=== PATIENT | male | born 1960 | race Caucasian/White ===

== ENCOUNTER 2022-09-19 09:07 | Outpatient (OUT) | payer MEDICARE, OTHER, SELFPAY ==
[2022-09-19 10:00] LABS: Basophils Percent Auto 0.6 % (0.2-2.0); Eosinophils Absolute Auto 0.1 10^3/uL (0.0-0.7); Eosinophils Percent Auto 1.5 % (0.9-7.0); Hemoglobin 16.1 g/dL (14.0-18.0); Immature Granulocytes Abs Auto 0.03 10^3/uL (0.00-0.03); Immature Granulocytes Pct Auto 0.5 % (0.0-0.5); Lymphocytes Absolute Auto 0.9 10^3/uL (1.2-3.8); Lymphocytes Percent Auto 13.1 % (20.5-60.0); Mean Corpuscular HGB Conc 32.9 g/dL (29.9-35.2); Mean Corpuscular Hemoglobin 30.3 pg (25.9-34.0); Mean Corpuscular Volume 92.3 fL (80.0-94.0); Mean Platelet Volume 10.1 fL (9.5-13.5); Monocytes Absolute Auto 0.7 10^3/uL (0.3-0.8); Neutrophils Absolute Auto 4.8 10^3/uL (1.4-6.5); Neutrophils Percent Auto 74.3 % (43.0-75.0); Platelet Count 230 10^3/uL (150-450); Red Blood Count 5.31 10^6/uL (4.70-6.10); Red Cell Distribution Width 13.9 % (11.0-15.0); White Blood Count 6.5 10^3/uL (4.0-11.0)
[2022-09-19 11:03] LABS: Alanine Aminotransferase 37 U/L (16-63); Albumin Globulin Ratio 1.2; Alkaline Phosphatase 98 U/L (46-116); Anion Gap 12.7; Aspartate Amino Transferase 25 U/L (15-37); BUN Creatinine Ratio 16.2; Bilirubin Direct 0.2 mg/dL (0.0-0.2); Bilirubin Total 0.8 mg/dL (0.2-1.0); Calcium 9.5 mg/dL (8.5-10.1); Carbon Dioxide 28.7 mmol/L (21.0-32.0); Chloride 103 mmol/L (98-107); Chol HDL Ratio 3.3; Cholesterol 140 mg/dL (<=200); Estimated GFR (African America >60 (>=60); Estimated GFR (Non-African Ame 56 (>=60); Globulin 3.4 g/dL; Glucose 106 mg/dL (74-106); HDL Cholesterol 43 mg/dL (40-60); Magnesium 1.9 mg/dL (1.8-2.4); Phosphorus 3.6 mg/dL (2.6-4.7); Potassium 4.4 mmol/L (3.5-5.1); Sodium 140 mmol/L (136-145); Total Protein 7.4 g/dL (6.4-8.2); Triglycerides 164 mg/dL (<=150); Uric Acid 5.6 mg/dL (3.5-7.2); VLDL CHOLESTEROL 32.8 mg/dL
[2022-09-21 15:09] LABS: BKV DNA, Quant PCR, Plasma Negative (Negative)
[2022-09-21 16:09] LABS: Tacrolimus (FK506), Blood 6.3 ng/mL (2.0-20.0)
== END 2022-09-19 09:08 ==
PROVIDERS: PCP Family Medicine
DX: Z94.0 Kidney transplant status (principal)
CPT/HCPCS: 36415; 80053; 80061; 80076; 80197; 83735; 84100; 84550; 85025; 87799

== ENCOUNTER 2022-10-21 07:23 | Outpatient (OUT) | payer MEDICARE, OTHER, SELFPAY ==
[2022-10-21 08:46] LABS: Basophils Absolute Auto 0.1 10^3/uL (0.0-0.1); Basophils Percent Auto 0.9 % (0.2-2.0); Eosinophils Absolute Auto 0.1 10^3/uL (0.0-0.7); Eosinophils Percent Auto 1.9 % (0.9-7.0); Hematocrit 47.9 % (42.0-54.0); Hemoglobin 15.4 g/dL (14.0-18.0); Immature Granulocytes Abs Auto 0.03 10^3/uL (0.00-0.03); Immature Granulocytes Pct Auto 0.5 % (0.0-0.5); Lymphocytes Absolute Auto 0.8 10^3/uL (1.2-3.8); Lymphocytes Percent Auto 14.1 % (20.5-60.0); Mean Corpuscular HGB Conc 32.2 g/dL (29.9-35.2); Mean Corpuscular Hemoglobin 29.7 pg (25.9-34.0); Mean Corpuscular Volume 92.5 fL (80.0-94.0); Mean Platelet Volume 10.6 fL (9.5-13.5); Monocytes Absolute Auto 0.6 10^3/uL (0.3-0.8); Monocytes Percent Auto 9.6 % (1.7-12.0); Neutrophils Absolute Auto 4.3 10^3/uL (1.4-6.5); Platelet Count 224 10^3/uL (150-450); Red Blood Count 5.18 10^6/uL (4.70-6.10); Red Cell Distribution Width 13.8 % (11.0-15.0); White Blood Count 5.8 10^3/uL (4.0-11.0)
[2022-10-21 09:37] LABS: Alanine Aminotransferase 40 U/L (16-63); Albumin Globulin Ratio 1.3; Albumin Level 3.8 g/dL (3.4-5.0); Alkaline Phosphatase 92 U/L (46-116); Aspartate Amino Transferase 16 U/L (15-37); BUN Creatinine Ratio 13.7; Bilirubin Direct 0.1 mg/dL (0.0-0.2); Bilirubin Total 0.4 mg/dL (0.2-1.0); Carbon Dioxide 26.9 mmol/L (21.0-32.0); Chloride 106 mmol/L (98-107); Chol HDL Ratio 2.6; Cholesterol 127 mg/dL (<=200); Estimated GFR (African America >60 (>=60); Estimated GFR (Non-African Ame 59 (>=60); Glucose 118 mg/dL (74-106); HDL Cholesterol 49 mg/dL (40-60); Magnesium 1.6 mg/dL (1.8-2.4); Phosphorus 3.8 mg/dL (2.6-4.7); Potassium 3.9 mmol/L (3.5-5.1); Sodium 141 mmol/L (136-145); Total Protein 6.8 g/dL (6.4-8.2); Triglycerides 120 mg/dL (<=150); Uric Acid 5.7 mg/dL (3.5-7.2)
[2022-10-24 18:07] LABS: BKV DNA, Quant PCR, Plasma Negative (Negative)
[2022-10-26 02:07] LABS: Tacrolimus (FK506), Blood 6.8 ng/mL (2.0-20.0)
== END 2022-10-21 07:24 | disposition home or self-care (01) ==
LOC: LAB 07:25
PROVIDERS: PCP Family Medicine
DX: Z94.0 Kidney transplant status (principal)
CPT/HCPCS: 36415; 80053; 80061; 80076; 80197; 83735; 84100; 84550; 85025; 87799

== ENCOUNTER 2022-11-21 08:46 | Outpatient (OUT) | payer MEDICARE, OTHER, SELFPAY ==
[2022-11-21 09:18] LABS: Basophils Absolute Auto 0.1 10^3/uL (0.0-0.1); Eosinophils Absolute Auto 0.1 10^3/uL (0.0-0.7); Eosinophils Percent Auto 1.6 % (0.9-7.0); Hematocrit 48.3 % (42.0-54.0); Hemoglobin 15.8 g/dL (14.0-18.0); Immature Granulocytes Abs Auto 0.03 10^3/uL (0.00-0.03); Immature Granulocytes Pct Auto 0.5 % (0.0-0.5); Lymphocytes Absolute Auto 0.9 10^3/uL (1.2-3.8); Lymphocytes Percent Auto 14.6 % (20.5-60.0); Mean Corpuscular HGB Conc 32.7 g/dL (29.9-35.2); Mean Corpuscular Hemoglobin 29.7 pg (25.9-34.0); Mean Corpuscular Volume 90.8 fL (80.0-94.0); Mean Platelet Volume 10.5 fL (9.5-13.5); Monocytes Absolute Auto 0.7 10^3/uL (0.3-0.8); Monocytes Percent Auto 11.1 % (1.7-12.0); Neutrophils Absolute Auto 4.5 10^3/uL (1.4-6.5); Neutrophils Percent Auto 71.2 % (43.0-75.0); Platelet Count 216 10^3/uL (150-450); Red Blood Count 5.32 10^6/uL (4.70-6.10); White Blood Count 6.3 10^3/uL (4.0-11.0)
[2022-11-21 11:14] LABS: Alanine Aminotransferase 34 U/L (16-63); Albumin Globulin Ratio 1.2; Albumin Level 3.9 g/dL (3.4-5.0); Alkaline Phosphatase 88 U/L (46-116); Anion Gap 14.6; Aspartate Amino Transferase 20 U/L (15-37); Bilirubin Direct 0.2 mg/dL (0.0-0.2); Bilirubin Total 0.5 mg/dL (0.2-1.0); Carbon Dioxide 26.6 mmol/L (21.0-32.0); Chloride 105 mmol/L (98-107); Chol HDL Ratio 2.7; Cholesterol 123 mg/dL (<=200); Estimated GFR (African America >60 (>=60); Estimated GFR (Non-African Ame 59 (>=60); Globulin 3.2 g/dL; Glucose 120 mg/dL (74-106); HDL Cholesterol 46 mg/dL (40-60); Potassium 4.2 mmol/L (3.5-5.1); Sodium 142 mmol/L (136-145); Total Protein 7.1 g/dL (6.4-8.2); Triglycerides 125 mg/dL (<=150); Uric Acid 5.4 mg/dL (3.5-7.2)
[2022-11-24 00:09] LABS: Tacrolimus (FK506), Blood 6.6 ng/mL (2.0-20.0)
== END 2022-11-21 08:47 | disposition home or self-care (01) ==
LOC: LAB 08:51
PROVIDERS: PCP Family Medicine
DX: Z94.0 Kidney transplant status (principal)
CPT/HCPCS: 36415; 80053; 80061; 80197; 82248; 84550; 85025

== ENCOUNTER 2023-02-23 08:30 | Outpatient (OUT) | payer MEDICARE, OTHER, SELFPAY ==
[2023-02-23 08:58] LABS: Basophils Absolute Auto 0.1 10^3/uL (0.0-0.1); Basophils Percent Auto 0.8 % (0.2-2.0); Eosinophils Absolute Auto 0.2 10^3/uL (0.0-0.7); Eosinophils Percent Auto 1.9 % (0.9-7.0); Hematocrit 46.6 % (42.0-54.0); Hemoglobin 14.9 g/dL (14.0-18.0); Immature Granulocytes Abs Auto 0.04 10^3/uL (0.00-0.03); Immature Granulocytes Pct Auto 0.5 % (0.0-0.5); Lymphocytes Absolute Auto 1.2 10^3/uL (1.2-3.8); Lymphocytes Percent Auto 14.9 % (20.5-60.0); Mean Corpuscular Hemoglobin 29.7 pg (25.9-34.0); Mean Corpuscular Volume 92.8 fL (80.0-94.0); Mean Platelet Volume 9.9 fL (9.5-13.5); Monocytes Absolute Auto 0.7 10^3/uL (0.3-0.8); Monocytes Percent Auto 8.8 % (1.7-12.0); Neutrophils Absolute Auto 5.8 10^3/uL (1.4-6.5); Neutrophils Percent Auto 73.1 % (43.0-75.0); Platelet Count 263 10^3/uL (150-450); Red Blood Count 5.02 10^6/uL (4.70-6.10); Red Cell Distribution Width 13.9 % (11.0-15.0); White Blood Count 7.9 10^3/uL (4.0-11.0)
[2023-02-23 10:15] LABS: Alanine Aminotransferase 36 U/L (16-63); Albumin Globulin Ratio 1.1; Albumin Level 3.6 g/dL (3.4-5.0); Alkaline Phosphatase 106 U/L (46-116); Anion Gap 8.2; Aspartate Amino Transferase 19 U/L (15-37); BUN Creatinine Ratio 14.6; Bilirubin Direct 0.1 mg/dL (0.0-0.2); Bilirubin Total 0.5 mg/dL (0.2-1.0); Calcium 9.1 mg/dL (8.5-10.1); Carbon Dioxide 30.1 mmol/L (21.0-32.0); Chloride 102 mmol/L (98-107); Chol HDL Ratio 2.7; Cholesterol 120 mg/dL (<=200); Estimated GFR (African America >60 (>=60); Estimated GFR (Non-African Ame 56 (>=60); Globulin 3.3 g/dL; Glucose 115 mg/dL (74-106); HDL Cholesterol 44 mg/dL (40-60); LDL Cholesterol Calculated 52.6 mg/dL; Magnesium 1.9 mg/dL (1.8-2.4); Phosphorus 3.7 mg/dL (2.6-4.7); Potassium 4.3 mmol/L (3.5-5.1); Sodium 136 mmol/L (136-145); Total Protein 6.9 g/dL (6.4-8.2); Triglycerides 117 mg/dL (<=150); VLDL CHOLESTEROL 23.4 mg/dL
[2023-02-25 16:08] LABS: BKV DNA, Quant PCR, Plasma Negative (Negative)
[2023-02-26 15:07] LABS: Tacrolimus (FK506), Blood 3.6 ng/mL (2.0-20.0)
== END 2023-02-23 08:31 | disposition home or self-care (01) ==
LOC: LAB 08:32
PROVIDERS: PCP Family Medicine
DX: Z94.0 Kidney transplant status (principal)
CPT/HCPCS: 36415; 80053; 80061; 80076; 80197; 83735; 84100; 84550; 85025; 87799

== ENCOUNTER 2023-03-08 09:09 | Outpatient (OUT) | payer MEDICARE, OTHER, SELFPAY ==
[2023-03-11 21:06] LABS: Tacrolimus (FK506), Blood 6.7 ng/mL (2.0-20.0)
== END 2023-03-08 09:10 | disposition home or self-care (01) ==
LOC: LAB 09:11
PROVIDERS: PCP Family Medicine
DX: R73.01 Impaired fasting glucose (principal); Z94.0 Kidney transplant status
CPT/HCPCS: 36415; 80197

== ENCOUNTER 2023-04-26 09:29 | Outpatient (OUT) | payer MEDICARE, SELFPAY ==
--- OUTSIDE RECORDS SUMMARY | 2023-04-26 09:39 | XMS_ITS | CCD ---
Author Name Unknown Address [address] [place] [address] Organization [facility] Care Team Providers Care Capacity Planning Engineer Name Role Phone Rosa M Gonzales Unavailable Unavailable Unavailable YONAS HERRERA Surgeon Unavailable SC Procedure Practitioner Unavailab YONAS Hsieh Attending Unavailable ROSA M GONZALES Primary Care Unavailable ROSA M GONZALES Referring Unavailable EKINES RAFAEL Admitting Unavailable ROSA M GONZALES Primary Care Unavailable ROSA M GONZALES Referring Unavailable FEDERICO CHESTER Attending Unavailable FEDERICO CHESTER Admitting Unavailable ROSA M GONZALES Primary Care Unavailable ROSA M GONZALES Referring Unavailable Daniel Jansen Attending Unavailable Daniel Jansen Admitting Unavailable JUAN FERREIRA Attending Unavailable XOCHILT CABRERA Admitting Unavailable JULIET GOLDBERG Referring Unavailable ROSA M GONZALES Primary Care Unavailable YOJANA MCDANIELS Surgeon Unavailable SC Procedure Practitioner Unavailab prabhakar MACDONALD, REFERRED Referring Unavailable ROSA M GONZALES Primary Care Unavailable DEIRCK VIDAL Attending Unavailable DERICK VIDAL Admitting Unavailable ROSA M GONZALES Primary Care Physician [phone] STEPHANIE, DR LAYTON Consulting Unavailable ELTAHAWY, DR LAYTON Admitting Unavailable ELTAHAWY, DR LAYTON Attending Unavailable JANET, DR DUVAL Primary Care Unavailable MISC, DR PEDERSEN Admitting Unavailable MISC, DR PEDERSEN Attending Unavailable JANET, DR DUVAL Primary Care Unavailable MISC, DR PEDERSEN Consulting Unavailable MISC, DR PEDERSEN Admitting Unavailable MISC, DR PDEERSEN Attending Unavailable JANET, DR DUVAL Primary Care Unavailable MISC, DR PEDERSEN Consulting Unavailable MISC, DR PEDERSEN Admitting Unavailable MISC, DR DOCTOR Consulting Unavailable MISC, DR DOCTOR Attending Unavailable JANET, DR DUVAL Primary Care Unavailable WALDO, DR AIME Arnold Consulting Unavailable ELTAHAWY, DR LAYTON Admitting Unavailable ELTAHAWY, DR LAYTON Attending Unavailable JANET, DR DUVAL Primary Care Unavailable ELTAHAWY, DR LAYTON Consulting Unavailable MISC, DOCTOR Admitting Unavailable MISC, DOCTOR Attending Unavailable MISC, DR PEDERSEN Consulting Unavailable JANET, DR DUVAL Primary Care Unavailable MISC, DOCTOR Admitting Unavailable MISC, DOCTOR Attending Unavailable MISC, DR PEDERSEN Consulting Unavailable JANET, DR DUVAL Primary Care Unavailable JANET, DR DUVAL Primary Care Unavailable MISC, DOCTOR Attending Unavailable MISC, DR PEDERSEN Consulting Unavailable MISC, DOCTOR Admitting Unavailable MISC, DOCTOR Attending Unavailable MISC, DR PEDERSEN Consulting Unavailable JANET, DR DUVAL Primary Care Unavailable MISC, DOCTOR Admitting Unavailable Sarmini, Xochilt Talal Attending Unavaila ble AL-TKRIT, KELVIN Attending Unavailable EKWENNA, OBI Admitting Unavailable EKWENNA, OBI Attending Unavailable ELTAHAWY, EHAB Attending Unavailable EKWENNA, OBI Referring Unavailable SAFI, SHARLA Referring Unavailable CRISENBERY, PETEY Attending Unavailable EKWENNA, OBI Attending Unavailable ELTAHAWY, EHAB Attending Unavailable KAY, TEAGAN Referring Unavailable KAY, TEAGAN Referring Unavailable HENRY, SHAUN Referring Unavailable EKWENNA, OBI Attending Unavailable EKWENNA, OBI Attending Unavailable EKWENNA, OBI Attending Unavailable SAFI, SHARLA Referring Unavailable AHMAD, RAMI Attending Unavailable CRISENBERY, PETEY Attending Unavailable Allergies Allergy Classification Reported Allergen(s) Allergy Type Date of Onset Reaction(s) Facility (1 source) 11040,00; Translations: [96016,00] Propensity to adverse reactions (disorder) 9 [facility] Repository (1 source) Cephalexin; Translations: [Keflex] Drug Allergy [facility] Repository (1 source) ALLERGIES NOT ON FILE; Translations: [ALLERGIES NOT ON FILE] Propensity to adverse reactions (disorder) [facility] Repository Medications Current Medications Medication Drug Class(es) Dates Sig (Normalized) Sig (Original) atorvastatin 80 mg oral tablet (2 sources) HMG-CoA Reductase Inhibitor Start: 01-17-2022 take 1 tablet by mouth once daily atorvastatin 80 mg Tab 80 mg = 1 tab(s), Oral, Daily Start Date: 01/17/22 Status: Ordered Start: 01-04-2021 take 1 tablet by jacob th once daily Atorvastatin Calcium 80 MG Oral Tablet TAKE 1 TABLET BY MOUTH EVERY DAY Quantity: 30 Refills: 0 Ordered: 04-Apr-2021 DO Start : 04-Jan-2021 Active clopidogrel 75 mg oral tablet (2 sources) P2Y12 Platelet Inhibitor Start: 01-17-2022 take 1 tablet by mouth once daily clopidogrel 75 mg Tab 75 mg = 1 tab(s), Oral, Daily Start Date: 01/17/22 Status: Ordered Start: 01-04-2021 take 1 tablet by jacob th once daily Clopidogrel Bisulfate 75 MG Oral Tablet TAKE 1 TABLET DAILY. Quantity: 7 Refills: 0 Ordered: 04-Apr-2021 DO Start : 04-Jan-2021 Active clotrimazole 10 mg oral lozenge (1 source) Azole Antifungal Start: 01-01-2020 take 1 mg by mouth once daily clotrimazole 10 mg Jennifer mg lozenge(s), Oral, 5x/Day, Refills(s) 0 Start Date: 01/01/20 Status: Ordered dapagliflozin 10 mg oral tablet (2 sources) Sodium-Glucose Cotransporter 2 Inhibitor Start: 01-17-2022 take 1 tablet by mouth once daily Farxiga 10 mg oral tablet 10 mg = 1 tab(s), Oral, Daily Start Date: 01/17/22 Status: Ordered take 1 tablet by jacob th once daily in the morning Farxiga 10 MG Oral Tablet TAKE 1 TABLET BY MOUTH EVERY MORNING Quantity: 0 Refills: 0 Ordered: 23-Apr-2021 DO Active magnesium amino acid chelate (1 source) Start: 01-01-2020 magnesium butcher o acids chelate Oral, Refills(s) 0 Start Date: 01/01/20 Status: Ordered magnesium oxide 400 mg oral tablet (2 sources) Start: 01-17-2022 take 1 tablet by mouth three times daily magnesium oxide 400 mg Tab 400 mg = 1 tab(s), Oral, TID Start Date: 01/17/22 Status: Ordered Start: 07-01-2020 take 1 tablet by jacob th three times daily Magnesium Oxide 400 (241.3 Mg) MG Oral Tablet TAKE 1 TABLET BY MOUTH THREE TIMES DAILY Quantity: 90 Refills: 0 Ordered: 03-Mar-2021 DO Start : 01-Jul-2020 Active prasugrel 10 mg oral tablet (1 source) P2Y12 Platelet Inhibitor Start: 01-01-2020 take 1 tablet by mouth once daily Effient 10 mg Tab 10 mg = 1 tab(s), Oral, Daily, # 30 tab(s), Refills(s) 0 Start Date: 01/01/20 Status: Ordered pravastatin sodium 40 mg oral tablet (1 source) HMG-CoA Reductase Inhibitor Start: 01-03-2020 take 1 mg by mouth once daily Pravachol 40 mg Tab mg tab(s), Oral, Daily, Refills(s) 0 Start Date: 01/03/20 Status: Ordered predniSONE 5 mg oral tablet (2 sources) Start: 01-17-2022 take 1 tablet by mouth once daily predniSONE 5 mg Tab 5 mg = 1 tab(s), Oral, Daily Start Date: 01/17/22 Status: Ordered Start: 11-06-2020 take 1 tablet by jacob th once daily predniSONE 5 MG Oral Tablet TAKE 1 TABLET DAILY. Quantity: 0 Refills: 0 Ordered: 04-Apr-2021 DO Start : 06-Nov-2020 Active 12 hr ranolazine 500 mg extended release oral tablet (1 source) Anti-anginal Start: 01-17-2022 take 1 tablet by mouth twice daily ranolazine 500 mg oral ER Tab 500 mg = 1 tab(s), Oral, BID Start Date: 01/17/22 Status: Ordered sodium bicarbonate 325 mg oral tablet (1 source) Start: 01-01-2020 take 1 tablet by mouth four times daily as needed sodium bicarbonate 325 mg Tab = 1 tab(s), Oral, QID, PRN for indigestion, # 30 tab(s), Refills(s) 0 Start Date: 01/01/20 Status: Ordered sucralfate 1000 mg oral tablet (1 source) Aluminum Complex Start: 01-17-2022 take 1 tablet by mouth three times daily sucralfate 1 g Tab 1 gm = 1 tab(s), Oral, TID Start Date: 01/17/22 Status: Ordered Bactrim (1 source) Dihydrofolate Reductase Inhibitor Antibacterial, Sulfonamide Antimicrobial Start: 01-01-2020 Bactrim Oral, q12hr, Refill(s) 0 Start Date: 01/01/20 Status: Ordered valGANciclovir 450 mg oral tablet (1 source) Start: 01-01-2020 take 1 mg by mouth once daily valganciclovir 450 mg oral tablet mg tab(s), Oral, Daily, Refills(s) 0 Start Date: 01/01/20 Status: Ordered Completed/Discontinued Medications Medication Drug Class(es) Dates Sig (Normalized) Sig (Original) aspirin 81 mg chewable tablet (2 sources) Platelet Aggregation Inhibitor, Nonsteroidal Anti-inflammatory Drug Start: 08-19-2020 take 1 tablet by mouth once daily Aspirin Low Dose 81 MG Oral Tablet Chewable CHEW ONE TABLET BY MOUTH EVERY DAY Quantity: 30 Refills: 0 Ordered: 19-Aug-2020 DO Start : 19-Aug-2020 Active Start: 01-01-2020 take 1 mg by mouth once daily aspirin 81 mg oral tablet mg tab(s), Oral, Daily, Refills(s) 0 Start Date: 01/01/20 Status: Ordered lisinopril 5 mg oral tablet (2 sources) Angiotensin Converting Enzyme Inhibitor Start: 01-03-2020 take 1 tablet by mouth once daily Lisinopril 5 MG Oral Tablet TAKE 1 TABLET DAILY. Quantity: 90 Refills: 3 Ordered: 04-Apr-2021 DO Start : 03-Sep-2020 Active 24 hr metoprolol succinate 200 mg extended release oral tablet (2 sources) beta-Adrenergic Temo Start: 01-04-2021 take 1 tablet by mouth every twenty-four hours Metoprolol Succinate ER 200 MG Oral Tablet Extended Release 24 Hour Quantity: 30 Refills: 0 Ordered: 04-Apr-2021 DO Start : 04-Jan-2021 Active Start: 01-01-2020 take 1 mg by mouth twice daily Metoprolol tartrate 50 mg Tab mg tab(s), Oral, BID, Refills(s) 0 Start Date: 01/01/20 Status: Ordered mycophenolic acid 180 mg delayed release oral tablet (2 sources) Antimetabolite Immunosuppressant Start: 02-03-2021 take 3 tablets by mouth twice daily Mycophenolate Sodium 180 MG Oral Tablet Delayed Release TAKE 3 TABLET Twice daily Quantity: 0 Refills: 0 Ordered: 04-Apr-2021 DO Start : 03-Feb-2021 Active Start: 01-01-2020 take 1 mg by mouth twice daily mycophenolic acid 180 mg oral enteric coated tablet mg tab(s), Oral, BID, Refills(s) 0 Start Date: 01/01/20 Status: Ordered nitroglycerin 0.4 mg sublingual tablet (1 source) Nitrate Vasodilator Start: 10-26-2020 Nitroglyce rin 0.4 MG Sublingual Tablet Sublingual PLACE 1 TABLET UNDER THE TONGUE EVERY 5 MINUTES UP TO 3 DOSES NEEDED FOR CHEST PAIN. Quantity: 25 Refills: 6 Ordered: 07-Dec-2020 DO Start : 26-Oct-2020 Active tacrolimus 1 mg oral capsule (2 sources) Calcineurin Inhibitor Immunosuppressant Start: 07-01-2020 Tacrolimus 1 MG Oral Capsule TAKE DIRECTED. Quantity: 0 Refills: 0 Ordered: 04-Apr-2021 DO Start : 01-Jul-2020 Active Start: 01-01-2020 tacrolimus 1 m g, Refills(s) 0 Start Date: 01/01/20 Status: Ordered Problems Active Problems Problem Classification Problem Date Documented Date Episodic/Chronic Acute and unspecified renal failure (1 source) Renal failure syndrome 01-01-2020 Chronic Acute myocardial infarction (1 source) Myocardial infarction 01-17-2022 Chronic Cardiac arrest and ventricular fibrillation (1 source) Ventricular fibrillation; Translations: [Cardiac arrest] Chronic Chronic kidney disease (6 sources) Kidney transplant status; Translations: [KIDNEY TRANSPLANT STATUS] Onset: 3 Chronic Conduction disorders (3 sources) Automatic implantable cardiac defibrillator in situ; Translations: [Automatic implantable cardiac defibrillator in situ] Onset: 3 Chronic Congestive heart failure; nonhypertensive (4 sources) Heart failure, unspecified; Translations: [Chronic systolic (congestive) heart failure] Onset: 3 Chronic Coronary atherosclerosis and other heart disease (10 sources) Coronary atherosclerosis; Translations: [Coronary atherosclerosis of [place] coronary artery] Onset: 2 Chronic Deficiency and other anemia (2 sources) Other hemoglobinopathies; Translations: [Other hemoglobinopathies] Onset: 3 Chronic Diabetes mellitus without complication (2 sources) Impaired fasting glucose; Translations: [Impaired fasting glucose] Onset: 3 Episodic Disorders of lipid metabolism (2 sources) Hyperlipidemia; Translations: [Other and unspecified hyperlipidemia] 01-01-2020 Chronic Esophageal disorders (2 sources) Gastro-esophageal reflux disease without esophagitis; Translations: [Gastro-esophageal reflux disease without esophagitis] Onset: 3 Chronic Essential hypertension (3 sources) Hypertensive disorder; Translations: [Essential (primary) hypertension] Onset: 3 01-01-2020 Chronic Fluid and electrolyte disorders (2 sources) Other disorders of electrolyte and fluid balance, not elsewhere classified; Translations: [Other disorders of electrolyte and fluid balance, not elsewhere classified] Onset: 3 Episodic Genitourinary congenital anomalies (4 sources) Polycystic kidney, unspecified; Translations: [Polycystic kidney, adult type] Onset: 3 Chronic Genitourinary congenital anomalies (1 source) H/O: congenital anomaly; Translations: [Personal history of other specified (corrected) congenital malformations of genitourinary system] Onset: 2 Episodic Genitourinary symptoms and ill-defined conditions (4 sources) Nocturia; Translations: [Nocturia] Onset: 2 Episodic Hyperplasia of prostate (2 sources) Benign prostatic hypertrophy with outflow obstruction; Translations: [Benign prostatic hyperplasia with lower urinary tract symptoms] Onset: 2 Chronic Immunity disorders (2 sources) Immunodeficiency, unspecified; Translations: [Immunodeficiency, unspecified] Onset: 3 Chronic Other aftercare (2 sources) Encounter for aftercare following other organ transplant; Translations: [Encounter for aftercare following other organ transplant] Onset: 3 Chronic Other diseases of kidney and ureters (2 sources) Other specified disorders of kidney and ureter; Translations: [Other specified disorders of kidney and ureter] Onset: 3 Chronic Other screening for suspected conditions (not mental disorders or infectious disease) (4 sources) Abnormal electrocardiogram [ECG] [EKG]; Translations: [ABNORMAL ELECTROCARDIOGRAM] Onset: 3 Episodic Respiratory failure; insufficiency; arrest (adult) (2 sources) Chronic respiratory failure with hypoxia; Translations: [Chronic respiratory failure with hypoxia] Onset: 3 Chronic Unclassified (1 source) Personal history of COVID-19; Translations: [Personal history of COVID-19] Onset: 3 Unclassified (1 source) Post covid-19 condition, unspecified; Translations: [Post covid-19 condition, unspecified] Onset: 3 Unclassified (2 sources) Kidney Follow-up; Translations: [Kidney Follow-up] Onset: 3 Past or Other Problems Problem Classification Problem Date Documented Da te Episodic/Chronic Other hematologic conditions (2 sources) Other abnormality of red blood cells; Translations: [Other abnormality of red blood cells] Onset: 08-19-2022 Episodic Other lower respiratory disease (2 sources) Other forms of dyspnea; Translations: [Other forms of dyspnea] Onset: 10-24-2022 Episodic Other lower respiratory disease (2 sources) Shortness of breath; Translations: [Shortness of breath] Onset: 07-29-2022 Episodic Screening and history of mental health and substance abuse codes (3 sources) Ex-smoker; Translations: [Personal history of tobacco use] Onset: 07-29-2022 Episodic Comment on above: Quit in 2008; Unclassified (1 source) Personal history of COVID-19; Translations: [Personal history of COVID-19] Onset: 07-29-2022 Unclassified (1 source) Post covid-19 condition, unspecified; Translations: [Post covid-19 condition, unspecified] Onset: 07-29-2022 Results Test Name Value Interpretation Reference Range Facility BILIRUBIN, DIRECTon 03-28-20 23 Magnesium [Mass/Vol] 0.1 mg/dL Normal 0-0.2 [facility] Comment on above: Performed By: #### L [id number] #### [facility] (AKER) [address] [place] [address] CBC WITH AUTO DIFFERENTIALon 03-28-2023 Basophils (Bld) [#/Vol] 0.08 10*3/uL Normal 0.00-0.20 [facility] Comment on above: Performed By: #### L [id number] #### [facility] (AKER) [address] [place] [address] Basophils/100 WBC (Bld) 0.8 % Normal 0.0-1.0 [facility] Comment on above: Performed By: #### L [id number] #### [facility] (BEAKER) [address] [place] [address] Eosinophils (Bld) [#/Vol] 0.17 10*3/uL Normal 0.00-0.50 [facility] Comment on above: Performed By: #### L [id number] #### [facility] [address] [place] [address] Eosinophils/100 WBC (Bld) 1.7 % Normal 0.0-6.0 [facility] Comment on above: Performed By: #### L [id number] #### [facility] ([facility]) [address] [place] [address] Erythrocyte distribution width (RBC) [Ratio] 14.8 % Normal 11.5-15.0 [facility] Comment on above: Performed By: #### L [id number] #### [facility] ([facility]) [address] [place] [address] ERYTHROCYTE MEAN CORPUSCULAR HEMOGLOBIN CONCENTRATION (G/DL) BY AUTOMATED 32.9 g/dL Normal 32.0-35.0 [facility] Comment on above: Performed By: #### L [id number] #### [facility] ([facility]) [address] [place] [address] Hematocrit (Bld) [Volume fraction] 49.3 % Normal 39.0-55.0 [facility] Comment on above: Performed By: #### L [id number] #### [facility] [address] [place] [address] Hemoglobin (Bld) [Mass/Vol] 16.2 g/dL Normal 13.0-17.0 [facility] Comment on above: Performed By: #### L [id number] #### [facility] [address] [place] [address] Immature granulocytes (Bld) [#/Vol] 0.07 10*3/uL Normal 0.00-0.20 [facility] Comment on above: Performed By: #### L [id number] #### [facility] [address] [place] [address] Immature granulocytes/100 WBC (Bld) 0.7 % Normal 0.0-1.0 [facility] Comment on above: Performed By: #### L [id number] #### [facility] ([facility]) [address] [place] [address] Lymphocytes (Bld) [#/Vol] 1.26 10*3/uL Normal 1.20-4.00 [facility] Comment on above: Performed By: #### L [id number] #### [facility] ([facility]) [address] [facility] [place] [address] Lymphocytes/100 WBC (Bld) 12.4 % Low 20.0-45.0 [facility] Comment on above: Performed By: #### L [id number] #### [facility] ([facility]) [address] [facility] [address] MCH (RBC) [Entitic mass] 29.8 pg Normal 27.0-33.0 [facility] Comment on above: Performed By: #### L [id number] #### [facility] ([facility]) [address] [place] [address] MCV (RBC) [Entitic vol] 90.8 fL Normal 82.0-98.0 [facility] Comment on above: Performed By: #### L [id number] #### [facility] ([facility]) [address] [place] [address] Monocytes (Bld) [#/Vol] 0.94 10*3/uL Normal 0.10-1.00 [facility] Comment on above: Performed By: #### L [id number] #### [facility] ([facility]) [address] [place] [address] Monocytes/100 WBC (Bld) 9.2 % Normal 5.0-12.0 [facility] Comment on above: Performed By: #### L [id number] #### [facility] ([facility]) [address] [place] [address] Neutrophils (Bld) [#/Vol] 7.66 10*3/uL High 1.60-7.60 [facility] Comment on above: Performed By: #### L [id number] #### [facility] ([facility]) [address] [place] [address] Neutrophils/100 WBC (Bld) 75.2 % High 40.0-72.0 [facility] Comment on above: Performed By: #### L [id number] #### [facility] ([facility]) [address] [place] [place] [address] NRBC (PER 100 WBCS) BY AUTOMATED COUNT 0.0 % Normal 0 [facility] Comment on above: Performed By: #### L [id number] #### [facility] ([facility]) [address] [place] [address] PLATELETS (10*3/UL) IN BLOOD AUTOMATED COUNT 276 10*3/uL Normal 150-400 [facility] Comment on above: Performed By: #### L [id number] #### [facility] ([facility]) [address] [place] [address] RBC (Bld) [#/Vol] 5.43 10*6/uL Normal 4.20-5.70 [facility] Comment on above: Performed By: #### L [id number] #### [facility] ([facility]) [address] [place] [address] WBC (Bld) [#/Vol] 10.18 10*3/uL Normal 4.00-10.60 [facility] Comment on above: Performed By: #### L [id number] #### [facility] ([facility]) [address] [place] [address] COMPREHENSIVE METABOLIC PANE Nitin 03-28-2023 Albumin [Mass/Vol] 4.7 g/dL Normal 3.5-5.7 [facility] Comment on above: Performed By: #### L [id number] ####[facility] ([facility] [place] [address] ALP [Catalytic activity/Vol] 92 U/L Normal 34-104 [facility] Comment on above: Performed By: #### L [id number] ####[facility] (BEAKER)[address] [place] [address] ALT [Catalytic activity/Vol] 19 U/L Normal 7-52 [facility] Comment on above: Performed By: #### L [id number] ####[facility] (BEAKER)[address] [place] [address] Anion gap [Moles/Vol] 11 mmol/L Normal 7-20 [facility] Comment on above: Performed By: #### L [id number] ####[facility] (BEAKER)[address] [place] [address] AST [Catalytic activity/Vol] 17 U/L Normal 13-39 [facility] Comment on above: Performed By: #### L [id number] ####[facility] (BEAKER)[address] [place] [address] Bilirubin [Mass/Vol] 0.6 mg/dL Normal 0.3-1.0 [facility] Comment on above: Performed By: #### L [id number] ####[facility] (BEAKER)[address] [place] [address] Calcium [Mass/Vol] 9.9 mg/dL Normal 8.6-10.3 [facility] Comment on above: Performed By: #### L [id number] ####[facility] (BEAKER)[address] [place] [address] Chloride [Moles/Vol] 105 mmol/L Normal 98-107 [facility] Comment on above: Performed By: #### L [id number] ####[facility] (BEAKER)[address] [place] [address] CO2 [Moles/Vol] 27 mmol/L Normal 21-31 [facility] Comment on above: Performed By: #### L [id number] ####[facility] (BEAKER)[address] [place] [address] Creatinine [Mass/Vol] 1.21 mg/dL Normal 0.70-1.30 [facility] Comment on above: Performed By: #### L [id number] ####[facility] ([facility])[address] [place] [address] GLOMERULAR FILTRATION RATE ML/MIN/1.73 SQ M.PREDICTED 67.7 mL/min/1.73m*2 Normal >60.0 [facility] Comment on above: Result Comment: [facility]???s estimated glomerular filtration rate (eGFR) will no longer include consideration of race in its calculation. The National Kid[employer] Foundation???s eGFR Task Force developed new recommendations for the estimation of the glomerular filtration rate in the [place] They recommend immediate implementation of the new equation refit without the race variable in all laboratories because the calculation does not include race. In addition to not including race in the calculation and reporting, it included diversity in its development, and has acceptable performance characteristics and potential consequences that do not disproportionately affect any one group of individuals. Performed By: #### L [id number] ####[facility] ([facility])[address] [place] [address] Glucose [Mass/Vol] 136 mg/dL High 70-100 [facility] Comment on above: Performed By: #### L [id number] ####[facility] ([facility])[address] [place] [address] Potassium [Moles/Vol] 4.8 mmol/L Normal 3.5-5.1 [facility] Comment on above: Performed By: #### L [id number] ####[facility] ([facility])[address] [place] [address] Protein [Mass/Vol] 6.9 g/dL Normal 6.0-8.3 [facility] Comment on above: Performed By: #### L [id number] ####[facility] ([facility])[address] [place] [address] Sodium [Moles/Vol] 138 mmol/L Normal 136-145 [facility] Comment on above: Performed By: #### L [id number] ####[facility] ([facility])[address] [place] [address] Urea nitrogen [Mass/Vol] 20 mg/dL Normal 7-25 [facility] Comment on above: Performed By: #### L [id number] ####[facility] ([facility])[address] [place] [address] UREA NITROGEN/CREATININE (MASS RATIO) IN SER/PLAS 16.5 Normal [facility] Comment on above: Performed By: #### L [id number] ####[facility] ([facility])[address] [place] [address] Follow-Upon 03-28-2023 Follow-Up [id number] Vishal Duke 1960 M Date Provider Department Center 03/28/2023 [id number] ZHANG None Family History Problem Relation Age of Onset Alzheimer's disease Mother Coronary artery disease Father Family Status - Relation Status Age at Mother Father Level of Service:92387 SC OFFICE/OUTPATIENT ESTABLISHED MOD MDM 30-39 MIN Reason for Visit and Comments: Kidney Follow-up [[id number]] - Patient have no concerns Normal [facility] LIPID PANELon 03-28-2023 CHOL/HDL 2.8 mg/dL Normal [facility] Comment on above: Performed By: #### L [id number] #### [facility] ([facility]) [address] [place] [address] Cholesterol [Mass/Vol] 125 mg/dL Normal 120-200 [facility] Comment on above: Performed By: #### L [id number] #### [facility] ([facility]) [address] [place] [address] Magnesium [Mass/Vol] 157 mg/dL High 40-149 [facility] Comment on above: Result Comment: TRIG LYCERIDE REFERENCE RANGE: 20 YEARS AND OLDER CARDIOVASCULAR RISK LESS THAN 150 mg/dL LOW RISK 150 TO 199 mg/dL BORDERLINE RISK 200 mg/dL AND GREATER HIGH RISK Performed By: #### L [id number] #### [facility] ([facility]) [address] [place] [address] Magnesium [Mass/Vol] 49 mg/dL Normal 0-160 [facility] Comment on above: Performed By: #### L [id number] #### [facility] [address] [place] [address] Magnesium [Mass/Vol] 45 mg/dL Normal 23-92 [facility] Comment on above: Performed By: #### L [id number] #### [facility] ([facility]) [address] [place] [address] NON HDL CHOL. (LDL+VLDL) 80 Normal [facility] Comment on above: Performed By: #### L [id number] #### [facility] ([facility]) [address] [place] [address] TOTAL VLDL-C 31 mg/dL Normal 0-40 [facility] Comment on above: Performed By: #### L [id number] #### [facility] ([facility]) [address] [place] [address] Labon 03-28-2023 Lab [id number] Vishal Duke 1960 M Date Provider Department [place] 03/28/2023 [id number] DRAW STATION KXT Draw [facility] Family History Problem Relation Age of Onset Alzheimer's disease Mother Coronary artery disease Father Family Status - Relation Status Age at Mother Father Normal [facility] MAGNESIUMon 03-28-2023 Magnesium [Mass/Vol] 1.5 mg/dL Low 1.9-2.7 [facility] Comment on above: Performed By: #### L [id number] ####[facility] ([facility])[address] [place] [address] PHOSPHORUSon 03-28-2023 Magnesium [Mass/Vol] 3.6 mg/dL Normal 2.5-5.0 [facility] Comment on above: Performed By: #### L [id number] #### [facility] ([facility]) [address] [place] [address] TACROLIMUS LEVELon Tacrolimus (Bld) [Mass/Vol] 9.6 ng/mL Normal 5.0-20.0 [facility] Comment on above: Result Comment: The [employer] Tacrolimus assay is a delayed one-step immunoassay for the quantitative determination of tacrolimus in human whole blood using the chemiluminescent microparticle immunoassay (CMIA) technology with flexible assay protocols, referred to as Chemiflex. Performed By: #### L [id number] #### [facility] ([facility]) [address] [place] [address] URIC ACIDon 03-28-2023 Magnesium [Mass/Vol] 5.2 mg/dL Normal 4.4-7.6 [facility] Comment on above: Performed By: #### L [id number] #### [facility] ([facility]) [address] [place] [address] Orders Onlyon 03-08-2023 Orders Only [id number] Vishal Duke 1960 M Date Provider Department Center 03/08/2023 1971-FARRUKH BLANCAS TXP None Family History Problem Relation Age of Onset Alzheimer's disease Mother Coronary artery disease Father Family Status - Relation Status Age at Mother Father Normal [facility] BILIRUBIN, DIRECTon 02-10-20 Magnesium [Mass/Vol] 0.1 mg/dL Normal 0-0.2 [facility] Comment on above: Performed By: #### L [id number] #### [facility] ([facility]) [address] [place] [address] CBC WITH AUTO DIFFERENTIALon 02-09-2023 Basophils (Bld) [#/Vol] 0.10 10*3/uL Normal 0.00-0.20 [facility] Comment on above: Performed By: #### L [id number] ####[facility] ([facility])[address] [place] [address] Basophils/100 WBC (Bld) 1.0 % Normal 0.0-1.0 [facility] Comment on above: Performed By: #### L [id number] ####[facility] ([facility])[address] [place] [address] Eosinophils (Bld) [#/Vol] 0.10 10*3/uL Normal 0.00-0.50 [facility] Comment on above: Performed By: #### L [id number] ####[facility] ([facility])[address] [place] [address] Eosinophils/100 WBC (Bld) 1.0 % Normal 0.0-6.0 [facility] Comment on above: Performed By: #### L [id number] ####[facility] ([facility])[address] [place] [address] Erythrocyte distribution width (RBC) [Ratio] 14.0 % Normal 11.5-15.0 [facility] Comment on above: Performed By: #### L [id number] ####[facility] ([facility] [place] [address] ERYTHROCYTE MEAN CORPUSCULAR HEMOGLOBIN CONCENTRATION (G/DL) BY AUTOMATED 32.3 g/dL Normal 32.0-35.0 [facility] Comment on above: Performed By: #### L [id number] ####[facility] ([facility] [place] [address] Hematocrit (Bld) [Volume fraction] 46.4 % Normal 39.0-55.0 [facility] Comment on above: Performed By: #### L [id number] ####[facility] ([facility] [place] [address] Hemoglobin (Bld) [Mass/Vol] 15.0 g/dL Normal 13.0-17.0 [facility] Comment on above: Performed By: #### L [id number] ####[facility] ([facility])[address] [place] [address] Immature granulocytes (Bld) [#/Vol] 0.09 10*3/uL Normal 0.00-0.20 [facility] Comment on above: Performed By: #### L [id number] ####[facility] ([facility])[address] [place] [address] Immature granulocytes/100 WBC (Bld) 0.9 % Normal 0.0-1.0 [facility] Comment on above: Performed By: #### L [id number] ####[facility] ([facility])[address] [place] [address] Lymphocytes (Bld) [#/Vol] 0.92 10*3/uL Low 1.20-4.00 [facility] Comment on above: Performed By: #### L [id number] ####[facility] ([facility])[address] [place] [address] Lymphocytes/100 WBC (Bld) 9.2 % Low 20.0-45.0 [facility] Comment on above: Performed By: #### L [id number] ####[facility] ([facility])[address] [place] [address] MCH (RBC) [Entitic mass] 29.5 pg Normal 27.0-33.0 [facility] Comment on above: Performed By: #### L [id number] ####[facility] ([facility])[address] [place], [place] [address] MCV (RBC) [Entitic vol] 91.3 fL Normal 82.0-98.0 [facility] Comment on above: Performed By: #### L [id number] ####[facility] ([facility])[address] [place], [place] [address] Monocytes (Bld) [#/Vol] 0.75 10*3/uL Normal 0.10-1.00 [facility] Comment on above: Performed By: #### L [id number] ####[facility] ([facility])[address] [place] [address] Monocytes/100 WBC (Bld) 7.5 % Normal 5.0-12.0 [facility] Comment on above: Performed By: #### L [id number] ####[facility] ([facility])[address] [place] [address] Neutrophils (Bld) [#/Vol] 8.09 10*3/uL High 1.60-7.60 [facility] Comment on above: Performed By: #### L [id number] ####[facility] ([facility])[address] [place] [address] Neutrophils/100 WBC (Bld) 80.4 % High 40.0-72.0 [facility] Comment on above: Performed By: #### L [id number] ####[facility] ([facility])[address] [place] [address] NRBC (PER 100 WBCS) BY AUTOMATED COUNT 0.0 % Normal 0 [facility] Comment on above: Performed By: #### L [id number] ####[facility] ([facility])[address] [place] [address] PLATELETS (10*3/UL) IN BLOOD AUTOMATED COUNT 567 10*3/uL High 150-400 [facility] Comment on above: Performed By: #### L [id number] ####[facility] ([facility])[address] [place] [address] RBC (Bld) [#/Vol] 5.08 10*6/uL Normal 4.20-5.70 [facility] Comment on above: Performed By: #### L [id number] ####[facility] ([facility])[address] [place] [address] WBC (Bld) [#/Vol] 10.05 10*3/uL Normal 4.00-10.60 [facility] Comment on above: Performed By: #### L [id number] ####[facility] ([facility])[address] [place] [address] COMPREHENSIVE METABOLIC PANE Nitin 02-09-2023 Albumin [Mass/Vol] 4.5 g/dL Normal 3.5-5.7 [facility] Comment on above: Performed By: #### L [id number] #### [facility] ([facility] [address] [place] [address] ALP [Catalytic activity/Vol] 132 U/L High 34-104 [facility] Comment on above: Performed By: #### L [id number] #### [facility] ([facility] [address] [place] [address] ALT [Catalytic activity/Vol] 47 U/L Normal 7-52 [facility] Comment on above: Performed By: #### L [id number] #### [facility] ([facility]) [address] [place] [address] Anion gap [Moles/Vol] 13 mmol/L Normal 7-20 [facility] Comment on above: Performed By: #### L [id number] #### [facility] ([facility]) [address] [place] [address] AST [Catalytic activity/Vol] 27 U/L Normal 13-39 [facility] Comment on above: Performed By: #### L [id number] #### [facility] ([facility]) [address] [place] [address] Bilirubin [Mass/Vol] 0.6 mg/dL Normal 0.3-1.0 [facility] Comment on above: Performed By: #### L [id number] #### [facility] ([facility] [address] [place] [address] Calcium [Mass/Vol] 9.7 mg/dL Normal 8.6-10.3 [facility] Comment on above: Performed By: #### L [id number] #### [facility] ([facility]) [address] [place] [address] Chloride [Moles/Vol] 102 mmol/L Normal 98-107 [facility] Comment on above: Performed By: #### L [id number] #### [facility] ([facility]) [address] [place] [address] CO2 [Moles/Vol] 27 mmol/L Normal 21-31 [facility] Comment on above: Performed By: #### L [id number] #### [facility] ([facility]) [address] [place] [address] Creatinine [Mass/Vol] 1.17 mg/dL Normal 0.70-1.30 [facility] Comment on above: Performed By: #### L [id number] #### [facility] ([facility]) [address] [place] [address] GLOMERULAR FILTRATION RATE ML/MIN/1.73 SQ M.PREDICTED 70.5 mL/min/1.73m*2 Normal >60.0 [facility] Comment on above: Result Comment: The [facility]???s estimated glomerular filtration rate (eGFR) will no longer include consideration of race in its calculation. The National Kidney Foundation???s eGFR Task Force developed new recommendations for the estimation of the glomerular filtration rate in the [place] They recommend immediate implementation of the new equation refit without the race variable in all laboratories because the calculation does not include race. In addition to not including race in the calculation and reporting, it included diversity in its development, and has acceptable performance characteristics and potential consequences that do not disproportionately affect any one group of individuals. Performed By: #### L [id number] #### [facility] ([facility]) [address] [place] [address] Glucose [Mass/Vol] 111 mg/dL High 70-100 [facility] Comment on above: Performed By: #### L [id number] #### [facility] ([facility]) [address] [place] [address] Potassium [Moles/Vol] 4.6 mmol/L Normal 3.5-5.1 [facility] Comment on above: Performed By: #### L [id number] #### [facility] ([facility]) [address] [place] [address] Protein [Mass/Vol] 7.2 g/dL Normal 6.0-8.3 [facility] Comment on above: Performed By: #### L [id number] #### [facility] ([facility]) [address] [place] [address] Sodium [Moles/Vol] 137 mmol/L Normal 136-145 [facility] Comment on above: Performed By: #### L [id number] #### [facility] ([facility]) [address] [place] [address] Urea nitrogen [Mass/Vol] 19 mg/dL Normal 7-25 [facility] Comment on above: Performed By: #### L [id number] #### [facility] ([facility]) [address] [place] [address] UREA NITROGEN/CREATININE (MASS RATIO) IN SER/PLAS 16.2 Normal [facility] Comment on above: Performed By: #### L [id number] #### [facility] ([facility]) [address] [place] [address] Follow-Upon 02-09-2023 Follow-Up [id number] Vishal Duke 1960 M Date Provider Department Center 02/09/2023 [id number], OBI TXP None Family History Problem Relation Age of Onset Alzheimer's disease Mother Coronary artery disease Father Family Status - Relation Status Age at Mother Father Level of Service:[id number] SC OFFICE/OUTPATIENT ESTABLISHED LOW MDM 20-29 MIN Reason for Visit and Comments: Kidney Follow-up [[id number]] - No major concerns today Normal [facility] HEMOGLOBIN A1Con 02-09-2023 Glucose [Mass/Vol] 134 mg/dL Normal [facility] Comment on above: Performed By: #### L [id number] #### [facility] ([facility]) [address] [place] [address] HbA1c (Bld) [Mass fraction] 6.3 % High 4.0-6.0 [facility] Comment on above: Performed By: #### L [id number] #### [facility] ([facility]) [address] [place] [address] LIPID PANELon 02-09-2023 CHOL/HDL 3.6 mg/dL Normal [facility] Comment on above: Performed By: #### L [id number] ####[facility] ([facility] [place] [address] Cholesterol [Mass/Vol] 126 mg/dL Normal 120-200 [facility] Comment on above: Performed By: #### L [id number] ####[facility] ([facility])[address] [place] [address] Magnesium [Mass/Vol] 214 mg/dL High 40-149 [facility] Comment on above: Result Comment: TRIG LYCERIDE REFERENCE RANGE: 20 YEARS AND OLDER CARDIOVASCULAR RISK LESS THAN 150 mg/dL LOW RISK 150 TO 199 mg/dL BORDERLINE RISK 200 mg/dL AND GREATER HIGH RISK Performed By: #### L [id number] ####[facility] ([facility])[address] [place] [address] Magnesium [Mass/Vol] 48 mg/dL Normal 0-160 [facility] Comment on above: Performed By: #### L [id number] ####[facility] ([facility])[address] [place] [address] Magnesium [Mass/Vol] 35 mg/dL Normal 23-92 [facility] Comment on above: Performed By: #### L [id number] ####[facility] ([facility])[address] [place] [address] NON HDL CHOL. (LDL+VLDL) 91 Normal [facility] Comment on above: Performed By: #### L [id number] ####[facility] ([facility])[address] [place] [address] TOTAL VLDL-C 43 mg/dL High 0-40 [facility] Comment on above: Performed By: #### L [id number] ####[facility] ([facility])[address] [place] [address] Labon 02-09-2023 Lab [id number] Vishal Duke 1960 M Date Provider Department [place] 02/09/2023 [id number] DRAW STATION KXT Draw [facility] Family History Problem Relation Age of Onset Alzheimer's disease Mother Coronary artery disease Father Family Status - Relation Status Age at Mother Father Normal [facility] MAGNESIUMon 02-09-2023 Magnesium [Mass/Vol] 1.7 mg/dL Low 1.9-2.7 [facility] Comment on above: Performed By: #### L [id number] #### [facility] ([facility]) [address] [place] [address] PHOSPHORUSon 02-09-2023 Magnesium [Mass/Vol] 3.7 mg/dL Normal 2.5-5.0 [facility] Comment on above: Performed By: #### L [id number] #### [facility] ([facility]) [address] [place] [address] TACROLIMUS LEVELon Tacrolimus (Bld) [Mass/Vol] 3.3 ng/mL Low 5.0-20.0 [facility] Comment on above: Result Comment: The [employer] Tacrolimus assay is a delayed one-step immunoassay for the quantitative determination of tacrolimus in human whole blood using the chemiluminescent microparticle immunoassay (CMIA) technology with flexible assay protocols, referred to as Chemiflex. Performed By: #### L [id number] #### [facility] ([facility]) [address] [place] [address] TESTOSTERONE, FREE AND TOTAL , AND SHBGon 02-09-2023 SEX HORMONE BINDING GLOBULIN (NMOL/L) IN SER/PLAS 17 nmol/L Normal 11-80 [facility] Comment on above: Performed By: #### L [id number] #### [facility] ([facility]) [address] [place] [address] TESTOSTERONE (NG/DL) IN SER/PLAS 495 ng/dL Normal 220-1000 [facility] Comment on above: Performed By: #### L [id number] #### [facility] ([facility]) [address] [place] [address] TESTOSTERONE FREE (NG/ML) IN SER/PLAS 142.2 pg/mL Normal 47-244 [facility] Comment on above: Result Comment: The concentration of free testosterone is derived from a mathematical expression based on the constant for the binding of testosterone to albumin and/or sex hormone binding globulin. Test Performed by [facility] [address] [place] [id number] - Released 02/09/2023 20:38 Performed By: #### L [id number] #### [facility] ([facility]) [address] [place] [address] URIC ACIDon 02-09-2023 Magnesium [Mass/Vol] 5.1 mg/dL Normal 4.4-7.6 [facility] Comment on above: Performed By: #### L [id number] #### [facility] ([facility]) [address] [place] [address] Reminderson 02-03-2023 Reminders - From: Tamara White MA To: Tamara White MA; Sent: 02/02/2023 10:39:43 EDT Show up: 02/02/2023 10:40:00 EDT Subject: colon recall Reminder Message [address] Cerrato 02/01/13 first recall letter sent [facility] Patient Letter FTon 2022 Patient Letter [facility] (Inserted Image. Lacy ble to display) February 02, 2023 VISHAL DUKE [address] [place] [address] : 1960 Dear Vishal, This is a reminder that you are due for an appointment with [facility]. Please contact our office at [phone] to schedule your 10 year colon recall Thank you, [facility] 30on 01-25-2023 30 Problem: Neurosensor y - Adult Goal: Achieves stable or improved neurological status Outcome: Progressing Goal: Absence of seizures Outcome: Progressing Goal: Remains free of injury related to seizures activity Outcome: Progressing Goal: Achieves maximal functionality and self care Outcome: Progressing Problem: Respiratory - Adult Goal: Achieves optimal ventilation and oxygenation Outcome: Progressing Problem: Cardiovascular - Adult Goal: Maintains optimal cardiac output and hemodynamic stability Outcome: Progressing Goal: Absence of cardiac dysrhythmias or at baseline Outcome: Progressing Problem: Skin/Tissue Integrity - Adult Goal: Skin integrity remains intact Outcome: Progressing Goal: Incisions, wounds, or drain sites healing without S/S of infection Outcome: Progressing Goal: Oral mucous membranes remain intact Outcome: Progressing Problem: Gastrointestinal - Adult Goal: Minimal or absence of nausea and vomiting Outcome: Progressing Goal: Maintains or returns to baseline bowel function Outcome: Progressing Goal: Maintains adequate nutritional intake Outcome: Progressing Goal: Establish and maintain optimal ostomy function Outcome: Progressing Problem: Musculoskeletal - Adult Goal: Return mobility to safest level of function Outcome: Progressing Goal: Maintain proper alignment of affected body part Outcome: Progressing Goal: Return ADL status to a safe level of function Outcome: Progressing Problem: Infection - Adult Goal: Absence of infection at discharge Outcome: Progressing Goal: Absence of infection during hospitalization Outcome: Progressing Goal: Absence of fever/infection during anticipated neutropenic period Outcome: Progressing Problem: Genitourinary - Adult Goal: Absence of urinary retention Outcome: Progressing Goal: Urinary catheter remains patent Outcome: Progressing Problem: Genitourinary - Adult Goal: Absence of urinary retention Outcome: Progressing Goal: Urinary catheter remains patent Outcome: Progressing Problem: Infection - Adult Goal: Absence of infection at discharge Outcome: Progressing Goal: Absence of infection during hospitalization Outcome: Progressing Goal: Absence of fever/infection during anticipated neutropenic period Outcome: Progressing Problem: Genitourinary - Adult Goal: Absence of urinary retention Outcome: Progressing Goal: Urinary catheter remains patent Outcome: Progressing The patient is Moderately Stable - Low risk of patient condition declining or worsening Normal [facility] 30 Daily Case Managemen t Update Multidisciplinary rounds have been completed. Barriers to Discharge: s/p bilateral Nephrectomy. POD #1 From home. Hx of Kidney Transplant - 08/15/2017 Diet: Dietary Orders (From admission, onward) Start Ordered 01/25/23 1200 Full Liquid Diet Diet effective now Question: Room Service? Answer: No 01/25/23 0806 01/25/23 0324 Clear Liquid Diet Diet effective now Question: Room Service? Answer: No 01/25/23 0323 Physician Expected Discharge Date: 01/26/2023 Discharge Delays: PT Six Click Score: OT Six Click Score: PT Recommendations: OT Recommendations: New Consults: Normal [facility] BASIC METABOLIC PANELon 10- Anion gap [Moles/Vol] 10 mmol/L Normal 7-20 [facility] Comment on above: Performed By: #### L [id number] #### [facility] ([facility]) [address] [place] [address] Calcium [Mass/Vol] 6.6 mg/dL Low 8.6-10.3 [facility] Comment on above: Performed By: #### L [id number] #### [facility] ([facility]) [address] [place] [address] Chloride [Moles/Vol] 116 mmol/L High 98-107 [facility] Comment on above: Performed By: #### L [id number] #### [facility] ([facility]) [address] [place] [address] CO2 [Moles/Vol] 20 mmol/L Low 21-31 [facility] Comment on above: Performed By: #### L [id number] #### [facility] [address] [place] [address] Creatinine [Mass/Vol] 0.92 mg/dL Normal 0.70-1.30 [facility] Comment on above: Performed By: #### L [id number] #### [facility] ([facility]) [address] [place] [address] GLOMERULAR FILTRATION RATE ML/MIN/1.73 SQ M.PREDICTED 94.1 mL/min/1.73m*2 Normal >60.0 [facility] Comment on above: Result Comment: The [facility]???s estimated glomerular filtration rate (eGFR) will no longer include consideration of race in its calculation. The National Kidney Foundation???s eGFR Task Force developed new recommendations for the estimation of the glomerular filtration rate in the [place] They recommend immediate implementation of the new equation refit without the race variable in all laboratories because the calculation does not include race. In addition to not including race in the calculation and reporting, it included diversity in its development, and has acceptable performance characteristics and potential consequences that do not disproportionately affect any one group of individuals. Performed By: #### L [id number] #### [facility] [facility] ([facility]) [address] [place] [address] Glucose [Mass/Vol] 113 mg/dL High 70-100 [facility] Comment on above: Performed By: #### L [id number] #### [facility] [address] [place] [address] Potassium [Moles/Vol] 3.3 mmol/L Low 3.5-5.1 [facility] Comment on above: Performed By: #### L [id number] #### [facility] [address] [place] [address] Sodium [Moles/Vol] 143 mmol/L Normal 136-145 [facility] Comment on above: Performed By: #### L [id number] #### [facility] ([facility]) [address] [place] [address] Urea nitrogen [Mass/Vol] 17 mg/dL Normal 7-25 [facility] Comment on above: Performed By: #### L [id number] #### [facility] [address] [place] [address] UREA NITROGEN/CREATININE (MASS RATIO) IN SER/PLAS 18.5 Normal [facility] Comment on above: Performed By: #### L [id number] #### [facility] ([facility] [address] [place] [address] CBCon 01-25-2023 Erythrocyte distribution width (RBC) [Ratio] 14.8 % Normal 11.5-15.0 [facility] Comment on above: Performed By: #### L [id number] ####[facility] ([facility])[address] [place] [address] ERYTHROCYTE MEAN CORPUSCULAR HEMOGLOBIN CONCENTRATION (G/DL) BY AUTOMATED 32.2 g/dL Normal 32.0-35.0 [facility] Comment on above: Performed By: #### L [id number] ####[facility] ([facility])[address] [place] [address] Hematocrit (Bld) [Volume fraction] 42.5 % Normal 39.0-55.0 [facility] Comment on above: Performed By: #### L [id number] ####[facility] ([facility] [place] [address] Hemoglobin (Bld) [Mass/Vol] 13.7 g/dL Normal 13.0-17.0 [facility] Comment on above: Performed By: #### L [id number] ####[facility] ([facility] [place] [address] MCH (RBC) [Entitic mass] 29.7 pg Normal 27.0-33.0 [facility] Comment on above: Performed By: #### L [id number] ####[facility] ([facility] [place] [address] MCV (RBC) [Entitic vol] 92.2 fL Normal 82.0-98.0 [facility] Comment on above: Performed By: #### L [id number] ####[facility] ([facility])[address] [place] [address] PLATELETS (10*3/UL) IN BLOOD AUTOMATED COUNT 232 10*3/uL Normal 150-400 [facility] Comment on above: Performed By: #### L [id number] ####[facility] ([facility])[address] [place] [address] RBC (Bld) [#/Vol] 4.61 10*6/uL Normal 4.20-5.70 [facility] Comment on above: Performed By: #### L [id number] ####[facility] ([facility])[address] [place] [address] WBC (Bld) [#/Vol] 8.82 10*3/uL Normal 4.00-10.60 [facility] Comment on above: Performed By: #### L [id number] ####[facility] ([facility])[address] [place] [address] DSon 01-25-2023 DS Admission Admitted 01/24/2023 for PKD (polycystic kidney disease) Discharge Diagnosis PKD (polycystic kidney disease) Discharge Disposition Home or Self Care Discharge Medications Your medication list START taking these medications Instructions Last Dose Given Next Dose Due docusate sodium 100 mg capsule Commonly known as: Colace Take 1 capsule (100 mg) by mouth in the morning and at bedtime for 10 days. methocarbamol 500 mg tablet Commonly known as: Robaxin Take 1 tablet (500 mg) by mouth if needed in the morning, at noon, and at bedtime for muscle spasms for up to 5 days. oxyCODONE 5 mg immediate release tablet Commonly known as: Roxicodone Take 1 tablet (5 mg) by mouth every 6 (six) hours if needed (moderate pain (4-7)) for up to 5 days. polyethylene glycol 17 gram packet Commonly known as: Glycolax Start taking on: January 26, 2023 Take 17 g by mouth in the morning for 10 days. Do not start before January 26, 2023. CONTINUE taking these medications Instructions Last Dose Given Next Dose Due albuterol 90 mcg/actuation inhaler Commonly known as: ProAir HFA Inhale 2 puffs every 4 (four) hours if needed for wheezing or shortness of breath. aspirin 81 mg EC tablet atorvastatin 80 mg tablet Commonly known as: Lipitor Take 1 tablet (80 mg) by mouth at bedtime. clopidogrel 75 mg tablet Commonly known as: Plavix Take 1 tablet (75 mg) by mouth in the morning. empagliflozin 10 mg Commonly known as: Jardiance Take 1 tablet (10 mg) by mouth once daily as directed. esomeprazole [address] capsule Commonly known as: NexIUM Take 1 capsule (40 mg) by mouth before breakfast. Do not open capsule. famotidine 20 mg tablet Commonly known as: Pepcid isosorbide mononitrate ER 60 mg 24 hr tablet Commonly known as: Imdur Take 1 tablet (60 mg) by mouth in the morning. Do not crush or chew. lisinopril 5 mg tablet Take 1 tablet (5 mg) by mouth in the morning. magnesium oxide 400 mg tablet Commonly known as: Mag-Ox metoprolol succinate XL 200 mg 24 hr tablet Commonly known as: Toprol-XL Take 1 tablet (200 mg) by mouth once daily as directed. Do not crush or chew. mycophenolate 180 mg EC tablet Commonly known as: Myfortic Take 3 tablets (540 mg) by mouth in the morning and at bedtime. nitroglycerin 0.4 mg SL tablet Commonly known as: Nitrostat predniSONE 5 mg tablet Commonly known as: Deltasone ranolazine 500 mg 12 hr tablet Commonly known as: Ranexa Take 1 tablet (500 mg) by mouth in the morning and at bedtime. Do not crush, chew, or split. tacrolimus 0.5 mg capsule Commonly known as: Prograf tacrolimus 0.5 mg capsule, immediate-release TAKE 1 CAPSULE BY MOUTH TWICE DAILY Where to Get Your Medications These medications were sent to [facility] - [place], [place] - [address], [facility] [address] docusate sodium 100 mg capsule methocarbamol 500 mg tablet oxyCODONE 5 mg immediate release tablet polyethylene glycol 17 gram packet Activity For 4-6 weeks Normal activity as tolerated Showering instructions: Do not soak surgical incisions with water. Diet Continue on the same type of diet and foods as you were eating before your admission. Drink plenty of water. Allergies Patient has no known allergies. Hospital Course 62-year-old male status post bilateral robotic nephrectomy. By postoperative day 1 patient tolerating clear liquid diet was advanced to full liquid diet which he also tolerated. Patient was able to ambulate and was with minimal pain. Labs are all within normal limits. Patient was afebrile hemodynamically stable. Deng catheter is removed and patient passed void trial with low postvoid residuals. Patient is currently saturating off-and-on requiring nasal cannula oxygen. However patient since COVID has had off-and-on oxygen requirements and is at baseline currently with this. He is continuing to use his incentive spirometer. Patient is now stable and ready for discharge with outpatient follow-up. Pertinent Physical Exam At Time of Discharge Physical Exam Cardiovascular: Rate and Rhythm: Normal rate and regular rhythm. Pulmonary: Effort: Pulmonary effort is normal. Breath sounds: Normal breath sounds. Abdominal: General: Abdomen is flat. Palpations: Abdomen is soft. Skin: General: Skin is warm. Neurological: General: No focal deficit present. Mental Status: He is alert. Lab Results Labs Reviewed ARTERIAL BLOOD GAS WITH CO-OXIMETRY - Abnormal Result Value pH, Arterial 7.30 (*) pCO2, Arterial 46 pO2, Arterial 137 (*) HCO3, Arterial 22.6 Total Hemoglobin 15.0 O2 Sat, Arterial 98.7 (*) Carboxyhemoglobin 0.8 Methemoglobin 0.5 Deoxyhemoglobin 1.3 Base Excess, Arterial -4.0 (*) Source Of Oxygen Vent Oxyhemoglobin 97.4 (*) CALCIUM, IONIZED - Abnormal Calcium, Ion 1.12 (*) SODIU (more content not included)... Normal [facility] MAGNESIUMon 01-25-2023 Magnesium [Mass/Vol] 1.1 mg/dL Low 1.9-2.7 [facility] Comment on above: Performed By: #### L [id number] #### [facility] ([facility]) [address] [place] [address] NURSNOTEon 01-25-2023 NURSNOTE RN agrees with previ ous nurse assessment. Normal [facility] PHOSPHORUSon 01-25-2023 Magnesium [Mass/Vol] 3.0 mg/dL Normal 2.5-5.0 [facility] Comment on above: Performed By: #### L [id number] #### [facility] ([facility]) [address] [place] [address] POCT GLUCOSE METER UNSOLICIT ED RESULTSon 01-25-2023 Glucose [Mass/Vol] 137 mg/dL High 70-105 [facility] Comment on above: Order Comment: Waive d Testing in the ED is performed under the ED CLIA certificate #[id number]. Result Comment: [email or web address] Performed By: #### L [id number] ####[facility] ([facility])[address] [facility] [place] [address] Glucose [Mass/Vol] 144 mg/dL High 70-105 [facility] Comment on above: Order Comment: Waive d Testing in the ED is performed under the ED CLIA certificate #[id number]. Result Comment: [email or web address] Performed By: #### L [id number] #### [facility] ([facility]) [address] [facility] [place] [address] Glucose [Mass/Vol] 116 mg/dL High 70-105 [facility] Comment on above: Order Comment: Waive d Testing in the ED is performed under the ED CLIA certificate #[id number]. Result Comment: [email or web address] Performed By: #### L [id number] #### [facility] ([employer]) [address] [place] [address] Glucose [Mass/Vol] 130 mg/dL High 70-105 [facility] Comment on above: Order Comment: Waive d Testing in the ED is performed under the ED CLIA certificate #[id number]. Result Comment: [email or web address] Performed By: #### L [id number] #### [facility] ([employer]) [address] [place] [address] TACROLIMUS LEVELon 3 Tacrolimus (Bld) [Mass/Vol] 6.6 ng/mL Normal 5.0-20.0 [facility] Comment on above: Result Comment: The [employer] Tacrolimus assay is a delayed one-step immunoassay for the quantitative determination of tacrolimus in human whole blood using the chemiluminescent microparticle immunoassay (CMIA) technology with flexible assay protocols, referred to as Chemiflex. Performed By: #### L [id number] #### [facility] ([facility]) [address] [place] [address] ARTERIAL BLOOD GAS WITH CO-O XIMETRYon 01-24-2023 Base excess Calc (Bld) [Moles/Vol] -4.3000 mmol/L Low -2.0-3.0 [facility] Comment on above: Order Comment: OR GA S Performed By: #### L [id number] ####[facility] [id number] CARBOXYHEMOGLOBIN/H EMOGLOBIN TOTAL % IN BLOOD 1.0 % Normal 0.0-3.0 [facility] Comment on above: Order Comment: OR GA S Performed By: #### L [id number] ####[facility] [id number] [place] [address] [facility] CO2 (Bld) [Partial pressure] 35 mm[Hg] Normal 35-48 [facility] Comment on above: Order Comment: OR GA S Performed By: #### L [id number] ####[facility] [id number] [place] [address] [facility] DEOXYGENATED HEMOGLOBIN IN BLOOD 1.9 % Normal 1-5 [facility] Comment on above: Order Comment: OR GA S Performed By: #### L [id number] ####[facility] [id number] [place] [address] [place] HCO3 (Bld) [Moles/Vol] 20.2 mmol/L Low 21.0-28.0 [facility] Comment on above: Order Comment: OR GA S Performed By: #### L [id number] ####[facility] [id number] [place] [address] [facility] Hemoglobin (Bld) [Mass/Vol] 14.9 g/dL Normal 11.7-17.4 [facility] Comment on above: Order Comment: OR GA S Performed By: #### L [id number] ####[facility] [id number] [place] [address] [facility] METHEMOGLOBIN/100 IN BLOOD 0.5 % Normal 0.0-1.5 [facility] Comment on above: Order Comment: OR GA S Performed By: #### L [id number] ####[facility] [id number] [place] [address] [facility] Oxygen (Bld) [Partial pressure] 104 mm[Hg] High 83-100 [facility] Comment on above: Order Comment: OR GA S Performed By: #### L [id number] ####[facility] [id number] [place] [address] [facility] OXYGEN SATURATION (%) IN ARTERIAL BLOOD 98.1 % High 94.0-98.0 [facility] Comment on above: Order Comment: OR GA S Performed By: #### L [id number] ####[facility] [id number] [place] [address] [facility] OXYGENATED HEMOGLOBIN IN BLOOD 96.6 % High 90.0-95.0 [facility] Comment on above: Order Comment: OR GA S Performed By: #### L [id number] ####[facility] [id number] [place] [address] [facility] pH (Bld) 7.37 [pH] Normal 7.35-7.45 [facility] Comment on above: Order Comment: OR GA S Performed By: #### L [id number] ####[facility] [id number] [place] [address] [facility] SOURCE OF OXYGEN Vent Normal [facility] Comment on above: Order Comment: OR GA S Performed By: #### L [id number] ####[facility] [id number] [place] [address] [facility] Base excess Calc (Bld) [Moles/Vol] -4.0000 mmol/L Low -2.0-3.0 [facility] Comment on above: Performed By: #### L [id number] #### [facility] ([facility]) [address] [place] [address] CARBOXYHEMOGLOBIN/H EMOGLOBIN TOTAL % IN BLOOD 0.8 % Normal 0.0-3.0 [facility] Comment on above: Performed By: #### L [id number] #### [facility] ([facility]) [address] [place] [address] CO2 (Bld) [Partial pressure] 46 mm[Hg] Normal 35-48 [facility] Comment on above: Performed By: #### L [id number] #### [facility] ([facility]) [address] [place] [address] DEOXYGENATED HEMOGLOBIN IN BLOOD 1.3 % Normal 1-5 [facility] Comment on above: Performed By: #### L [id number] #### [facility] ([facility]) [address] [place] [address] HCO3 (Bld) [Moles/Vol] 22.6 mmol/L Normal 21.0-28.0 [facility] Comment on above: Performed By: #### L [id number] #### [facility] ([facility]) [address] [place] [address] Hemoglobin (Bld) [Mass/Vol] 15.0 g/dL Normal 11.7-17.4 [facility] Comment on above: Performed By: #### L [id number] #### [facility] ([facility]) [address] [place] [address] METHEMOGLOBIN/100 IN BLOOD 0.5 % Normal 0.0-1.5 [facility] Comment on above: Performed By: #### L [id number] #### [facility] ([facility]) [address] [place] [address] Oxygen (Bld) [Partial pressure] 137 mm[Hg] High 83-100 [facility] Comment on above: Performed By: #### L [id number] #### [facility] ([facility]) [address] [place] [address] OXYGEN SATURATION (%) IN ARTERIAL BLOOD 98.7 % High 94.0-98.0 [facility] Comment on above: Performed By: #### L [id number] #### [facility] ([facility]) [address] [place] [address] OXYGENATED HEMOGLOBIN IN BLOOD 97.4 % High 90.0-95.0 [facility] Comment on above: Performed By: #### L [id number] #### [facility] ([facility]) [address] [place] [address] pH (Bld) 7.30 [pH] Low 7.35-7.45 [facility] Comment on above: Performed By: #### L [id number] #### [facility] ([facility]) [address] [place] [address] SOURCE OF OXYGEN Vent Normal [facility] Comment on above: Performed By: #### L [id number] #### [facility] ([facility]) [address] [place] [address] BASIC METABOLIC PANELon 10 Anion gap [Moles/Vol] 14 mmol/L Normal 7-20 [facility] Comment on above: Performed By: #### L [id number] #### [facility] ([facility]) [address] [place] [address] Calcium [Mass/Vol] 8.5 mg/dL Low 8.6-10.3 [facility] Comment on above: Performed By: #### L [id number] #### [facility] ([facility]) [address] [place] [address] Chloride [Moles/Vol] 113 mmol/L High 98-107 [facility] Comment on above: Performed By: #### L [id number] #### [facility] ([facility]) [address] [place] [address] CO2 [Moles/Vol] 20 mmol/L Low 21-31 [facility] Comment on above: Performed By: #### L [id number] #### [facility] ([facility]) [address] [place] [address] Creatinine [Mass/Vol] 1.12 mg/dL Normal 0.70-1.30 [facility] Comment on above: Performed By: #### L [id number] #### [facility] ([facility]) [address] [place] [address] GLOMERULAR FILTRATION RATE ML/MIN/1.73 SQ M.PREDICTED 74.3 mL/min/1.73m*2 Normal >60.0 [facility] Comment on above: Result Comment: The [facility]???s estimated glomerular filtration rate (eGFR) will no longer include consideration of race in its calculation. The National Kidney Foundation???s eGFR Task Force developed new recommendations for the estimation of the glomerular filtration rate in the [place] They recommend immediate implementation of the new equation refit without the race variable in all laboratories because the calculation does not include race. In addition to not including race in the calculation and reporting, it included diversity in its development, and has acceptable performance characteristics and potential consequences that do not disproportionately affect any one group of individuals. Performed By: #### L [id number] #### [facility] ([facility]) [address] [place] [address] Glucose [Mass/Vol] 148 mg/dL High 70-100 [facility] Comment on above: Performed By: #### L [id number] #### [facility] ([facility]) [address] [place] [address] Potassium [Moles/Vol] 4.6 mmol/L Normal 3.5-5.1 [facility] Comment on above: Performed By: #### L [id number] #### [facility] ([facility]) [address] [place] [address] Sodium [Moles/Vol] 142 mmol/L Normal 136-145 [facility] Comment on above: Performed By: #### L [id number] #### [facility] ([facility]) [address] [place] [address] Urea nitrogen [Mass/Vol] 20 mg/dL Normal 7-25 [facility] Comment on above: Performed By: #### L [id number] #### [facility] [address] [place] [address] UREA NITROGEN/CREATININE (MASS RATIO) IN SER/PLAS 17.9 Normal [facility] Comment on above: Performed By: #### L [id number] #### [facility] [address] [place] [address] CALCIUM, IONIZEDon CALCIUM IONIZED (MMOL/L) IN BLOOD 1.18 mmol/L Normal 1.15-1.33 [facility] Comment on above: Performed By: #### L [id number] #### [facility] ([facility]) [address] [place] [address] CALCIUM IONIZED (MMOL/L) IN BLOOD 1.12 mmol/L Low 1.15-1.33 [facility] Comment on above: Performed By: #### L [id number] #### [facility] ([facility]) [address] [place] [address] CBCon 01-24-2023 Erythrocyte distribution width (RBC) [Ratio] 14.5 % Normal 11.5-15.0 [facility] Comment on above: Performed By: #### L [id number] #### [facility] ([facility]) [address] [place] [address] ERYTHROCYTE MEAN CORPUSCULAR HEMOGLOBIN CONCENTRATION (G/DL) BY AUTOMATED 33.7 g/dL Normal 32.0-35.0 [facility] Comment on above: Performed By: #### L [id number] #### [facility] ([facility]) [address] [place] [address] Hematocrit (Bld) [Volume fraction] 44.2 % Normal 39.0-55.0 [facility] Comment on above: Performed By: #### L [id number] #### [facility] [address] [place] [address] Hemoglobin (Bld) [Mass/Vol] 14.9 g/dL Normal 13.0-17.0 [facility] Comment on above: Performed By: #### L [id number] #### [facility] ([facility]) [address] [place] [address] MCH (RBC) [Entitic mass] 30.5 pg Normal 27.0-33.0 [facility] Comment on above: Performed By: #### L [id number] #### [facility] ([facility]) [address] [place] [address] MCV (RBC) [Entitic vol] 90.4 fL Normal 82.0-98.0 [facility] Comment on above: Performed By: #### L [id number] #### [facility] ([facility]) [address] [place] [address] PLATELETS (10*3/UL) IN BLOOD AUTOMATED COUNT 230 10*3/uL Normal 150-400 [facility] Comment on above: Performed By: #### L [id number] #### [facility] ([facility]) [address] [place] [address] RBC (Bld) [#/Vol] 4.89 10*6/uL Normal 4.20-5.70 [facility] Comment on above: Performed By: #### L [id number] #### [facility] ([facility]) [address] [place] [address] WBC (Bld) [#/Vol] 11.18 10*3/uL High 4.00-10.60 [facility] Comment on above: Performed By: #### L [id number] #### [facility] ([facility]) [address] [place] [address] HISTOLOGY - TISSUE EXAMon LAB AP CASE REPORT Normal [facility] Comment on above: Order Comment: Pre-o p diagnosis:PKD (polycystic kidney disease) [Q61.3] Result Comment: Surg ical Pathology Case: [id number] Authorizing Provider: Bobby Agee MD Collected: 01/24/2023 1630 Ordering Location: [facility] Main Operating Room Received: 01/24/2023 1721 Pathologist: Vaishnavi Magallon MD Specimens: A) - Kidney, RIGHT KIDNEY B) - Kidney, LEFT KIDNEY Performed By: #### L [id number] ####[facility] ([facility]AKER)[address] [facility] [place] [address] LAB AP CLINICAL INFORMATION Normal [facility] Comment on above: Order Comment: Pre-o p diagnosis:PKD (polycystic kidney disease) [Q61.3] Result Comment: Post -Op Diagnoses Q61.3 - PKD (polycystic kidney disease) [ICD-10-CM] Performed By: #### L [id number] ####[facility] ([facility]ER)[address] [facility] [place] [address] LAB AP GROSS DESCRIPTION A. Kidney. Normal [facility] Comment on above: Order Comment: Pre-o p diagnosis:PKD (polycystic kidney disease) [Q61.3] Result Comment: Part A is received in formalin labeled Vishal Duke and right kidney. It consists of a 1529 g right radical nephrectomy specimen (22.4 x 12.3 x 9.8 cm), attached ureter (4.5 cm in length by 0.5 cm in diameter), renal vein (1.2 cm in length by 0.7 cm in diameter), renal artery (1.1 cm in length by 0.4 cm in diameter), and overlying perinepheric adipose tissue (21.0 x 7.9 x 1.0 cm). The exterior of the kidney is translucent, purple-garcia, and cystic with some disrupted cystic structures. The attached adipose tissue is garcia-yellow and lobulated. The specimen is bivalved to reveal multiple, thin-walled, clear, fluid-filled, and sludgy red-brown filled cystic cavities, ranging from 0.2 x 0.1 x 0.1 cm to 5.6 x 4.1 x 3.7 cm. The calyx mucosa is garcia-white and smooth. The ureter is opened to reveal garcia-white, wrinkled mucosa. No normal kidney parenchyma is identified. No lymph nodes are identified in the perinephric adipose tissue. Horticulture Instructor sections are submitted as follows: A1 Vascular and ureter margin, en face A2 Superior pole A3 Mid kidney A4 Inferior pole Rubens Cornejo [employer] Student Hussein Lemus [employer] Radha. Kidney. Part B is received in formalin labeled Vishal Duke and left kidney. It consists of a 1612 g left radical nephrectomy specimen (21.1 x 14.6 x 11.1 cm), attached ureter (4.6 cm in length by 0.5 cm in diameter), renal vein (1.0 cm in length by 0.9 cm diameter), renal artery (0.6 cm in length by 0.4 cm in diameter), and overlying perinephric adipose tissue (19.4 x 11.5 x 1.5 cm). There is a yellow-orange area of soft tissue on the superior pole adipose tissue, consistent with possible adrenal gland (2.3 x 0.6 x 0.2 cm). The exterior of the kidney is translucent, purple-garcia, and cystic with disrupted cystic structures. The attached adipose tissue is garcia-yellow and lobulated. The specimen is bivalved to reveal multiple, thin-walled, clear fluid-filled to sludgy, red-brown filled cystic cavities, ranging from 0.2 x 0.2 x 0.2 cm to 9.2 x 7.3 x 6.0 cm. The largest cystic structure has a smooth, garcia-white lining with blood-clot contents. The calyx mucosa is garcia-white and smooth. The ureter is opened to reveal garcia-white, wrinkled mucosa. No normal kidney parenchyma is identified. No lymph nodes are identified in the perinephric adipose tissue. Horticulture Instructor sections are submitted as follows: A1 Vascular and ureter margin, en face A2 Superior pole A3 Mid kidney A4 Inferior pole B5 Largest cyst with clot B6 Possible adrenal glands Rubens Cornejo Pathologists' Industrial Machine Assembler Student Hussein Lemus, Pathologists' Industrial Machine Assembler Performed By: #### L [id number] ####[facility] (BEAKER)[address] [place] [address] LAB AP MICROSCOPIC DESCRIPTION Microscopic examination performed. Normal [facility] Comment on above: Order Comment: Pre-o p diagnosis:PKD (polycystic kidney disease) [Q61.3] Performed By: #### L [id number] ####[facility] (BEAKER)[address] [facility] [place] [address] LAB AP REPORT FINAL DIAGNOSIS NARRATIVE [employer] [facility] Comment on above: Order Comment: Pre-o p diagnosis:PKD (polycystic kidney disease) [Q61.3] Result Comment: A. K idney, right, nephrectomy: - Polycystic kidney disease B. Kidney, left, nephrectomy: - Polycystic kidney disease - No significant pathologic findings in adrenal tissue Performed By: #### L [id number] ####[facility] [facility] [place] [address] HPon 01-24-[address] Lila Campos , Dr. Giovana Ambrose, Dr. Yaya Busch, Dr. Rafael Agee, Dr. John Quarles , Dr. Manju Hood, James Fernandez MD History Of Present Illness Vishal Duke is a 62 y.o. male presenting with polycystic kidney disease here for bilateral nephrectomy due to Hx PCKD and persistent abd pain End-stage renal disease secondary to Polycystic Kidneys who underwent donor kidney transplant on 08/15/2017 (Kidney). Pt is on Anne only with No ARB at this time for HTN. Prior was on peritoneal dialysis which got complicated with b/l inguinal hernias adn then he was transitioned to hemodialysis left upper ext . He received DDRT on aug 16 2017 , uncomplicated. Transplant History Kidney Transplant - 08/15/2017 (#1) Polycystic Kidneys Past Medical History He has a past medical history of Coronary artery disease, GERD (gastroesophageal reflux disease), H/O coronary angioplasty, History of cardiac catheterization, Hyperlipidemia, Hypertension, Ischemic congestive cardiomyopathy (CMS/HCC), Kidney transplanted, Myocardial infarction (CMS/HCC), and Polycystic kidney disease. Surgical History He has a past surgical history that includes transplant, kidney, open; Cardiac catheterization; Coronary angioplasty with stent; Vascular surgery; Coronary artery bypass graft; and Cardiac pacemaker placement. Social History He reports that he quit smoking about 15 years ago. His smoking use included cigarettes. He started smoking about 46 years ago. He smoked an average of 1 pack per day. He has never used smokeless tobacco. He reports current alcohol use of about 1.0 standard drink of alcohol per week. He reports that he does not currently use drugs. Family History Family History Problem Relation Name Age of Onset Alzheimer's disease Mother Coronary artery disease Father Allergies Patient has no known allergies. Medications Medications Prior to Admission Medication Sig Dispense Refill Last Dose albuterol (ProAir HFA) 90 mcg/actuation inhaler Inhale 2 puffs every 4 (four) hours if needed for wheezing or shortness of breath. 8.5 g 2 aspirin 81 mg EC tablet Take 81 mg by mouth in the morning. atorvastatin (Lipitor) 80 mg tablet Take 1 tablet (80 mg) by mouth at bedtime. 30 tablet 11 clopidogrel (Plavix) 75 mg tablet Take 1 tablet (75 mg) by mouth in the morning. 30 tablet 11 empagliflozin (Jardiance) 10 mg Take 1 tablet (10 mg) by mouth once daily as directed. 90 each 3 esomeprazole (NexIUM) [address] capsule Take 1 capsule (40 mg) by mouth before breakfast. Do not open capsule. 30 capsule 11 famotidine (Pepcid) 20 mg tablet Take 20 mg by mouth in the morning and at bedtime. isosorbide mononitrate ER (Imdur) 60 mg 24 hr tablet Take 1 tablet (60 mg) by mouth in the morning. Do not crush or chew. 90 tablet 3 lisinopril 5 mg tablet Take 1 tablet (5 mg) by mouth in the morning. 30 tablet 11 magnesium oxide (Mag-Ox) 400 mg tablet 400 mg in the morning. metoprolol succinate XL (Toprol-XL) 200 mg 24 hr tablet Take 1 tablet (200 mg) by mouth once daily as directed. Do not crush or chew. 30 tablet 11 mycophenolate (Myfortic) 180 mg EC tablet Take 3 tablets (540 mg) by mouth in the morning and at bedtime. 540 tablet 3 nitroglycerin (Nitrostat) 0.[address] 0.4 mg under the tongue every 5 (five) minutes if needed for chest pain. predniSONE (Deltasone) 5 mg tablet Take 5 mg by mouth every other day. ranolazine (Ranexa) 500 mg 12 hr tablet Take 1 tablet (500 mg) by mouth in the morning and at bedtime. Do not crush, chew, or split. 60 tablet 11 tacrolimus (Prograf) 0.5 mg capsule tacrolimus 0.5 mg capsule, immediate-release TAKE 1 CAPSULE BY MOUTH TWICE DAILY 60 capsule 11 Last Recorded Vitals No data found. Review of Systems All other systems reviewed and are negative. Physical Exam Cardiovascular: Rate and Rhythm: Normal rate and regular rhythm. Pulmonary: Effort: Pulmonary effort is normal. Abdominal: General: Abdomen is flat. Palpations: Abdomen is soft. Neurological: Mental Status: He is alert. Relevant Lab Results Lab Results Component Value Date NA 139 01/06/2023 K 4.4 01/06/2023 CL 105 01/06/2023 CO2 28 01/06/2023 BUN 20 01/06/2023 CREATININE 1.27 01/06/2023 CALCIUM 9.6 01/06/[address] abdomen pelvis wo IV contrast Narrative: History:Adult polycystic renal disease. Abdominal bloating. Renal transplant CT abdomen and pelvis without contrast Comparison:12/01/2020 Technique: Axial images to the abdomen and pelvis were obtained without contrast. Subsequently sagittal and coronal images were submitted to PACS. Automated exposure control was used Findings: CT abdomen: Extensive cystic involvement in the liver is again appreciated. Few are partially calcified. No obvious interval change. The gallbladder is nondistended. Small gallstone is noted. The spleen and pancreas appear stable. The ad (more content not included)... Normal [facility] MAGNESIUMon 01-24-2023 Magnesium [Mass/Vol] 1.3 mg/dL Low 1.9-2.7 [facility] Comment on above: Performed By: #### L [id number] #### [facility] (BEAKER) [address] [place] [address] OPNOTEon 01-24-2023 OPNOTE NEPHRECTOMY, ROBOT-ASSISTED (B) Operative Note Date: 01/24/2023 Location: [facility] OR Name: Vishal Duke, : 1960, Diagnosis Pre-op Diagnosis * PKD (polycystic kidney disease) [Q61.3] Post-op Diagnosis * PKD (polycystic kidney disease) [Q61.3] Procedures ROBOTIC ASSISTED BILATERAL NEPHRECTOMY Surgeons * Bobby Agee - Primary RESIDENT Amelia Olson MD [facility] Urology PGY4 Procedure Summary Anesthesia: General ASA: IV Estimated Blood Loss: 150 mL Total IV Fluids: Crystalloid Drains: [REMOVED] Urethral Catheter Non-latex 16 Fr. (Removed) Site Assessment Other (Comment) 01/25/23 0824 Collection Container Standard drainage bag 01/24/232134 Securement Method Securing device (Describe) 01/24/232134 Reason for Continuing Urinary Catheterization Surgery/procedure time > 4 hours 01/24/232134 Output (mL) 400 mL 01/25/23 0438 Specimens ID Source Type Tests Collected By Collected At Frozen? Priority Lab ID A Kidney Tissue HISTOLOGY - TISSUE EXAM Bobby Agee MD 01/24/23 1630 No Routine [id number] Description: RIGHT KIDNEY B Kidney Tissue HISTOLOGY - TISSUE EXAM Bobby Agee MD 01/24/23 163 No Routine [id number] Description: LEFT KIDNEY Staff: Pack Out Operator: Nany Rios; Shelby Sal RN Relief Pack Out Operator: Pura Dimas, TATO; Jos Pete RN Relief Scrub: Fadi León CST Scrub Person: Nathalie Quintero CST; Myah Melendrez Environmental Designer: Jovanna Niño RN; Joyce Caraballo RN; Chichi Gutierrez CSA Orientee Scrub: Niya Adler CST Indications: Vishal Duke is an 62 y.o. male who is having End-stage renal disease secondary to Polycystic Kidneys who underwent donor kidney transplant on 08/15/2017. Patient was still having abdominal pain 2/2 to PCKD [place] kidneys. Procedure Details: The patient was seen in the preoperative area. The risks, benefits, complications, treatment options, non-operative alternatives, expected recovery and outcomes were discussed with the patient. The possibilities of reaction to medication, pulmonary aspiration, injury to surrounding structures, bleeding, recurrent infection, the need for additional procedures, failure to diagnose a condition, and creating a complication requiring transfusion or operation were discussed with the patient. The patient concurred with the proposed plan, giving informed consent. The site of surgery was properly noted/marked if necessary per policy. The patient has been actively warmed in preoperative area. Preoperative antibiotics have been ordered and given within 1 hours of incision. Venous thrombosis prophylaxis have been ordered including bilateral sequential compression devices Patient was prepped and draped in usual sterile fashion in modified R flank position with plan to start on the R kidney. A surgical timeout indicating correct patient, procedure, laterality, and positioning was performed. We began by using a Veress needle at the umbilicus to gain access into the abdomen with negative aspiration and drop test. We then insufflated the abdomen to 15 mmHg appropriately. We then placed a total of 3 robotic 8mm ports and one 12mm robotic port and a 5mm veterinary assistant technician port in alinear fashion. An additional 5 mm trocar was placed for a liver retractor. Initial camera port access was obtained using an optical trocar and once in the abdomen we confirmed no Veress site injury. The robot was then docked. We began by identifying the white line of Toldt and reflected the right colon medially. We identified the duodenum and carefully kocherized this to expose the IVC superiorly. We then traced the IVC down and identified the renal vein which were carefully dissected free of investing tissue. We also did identify the renal artery just posterior to the inferior renal vein. Once all vessels have been carefully freed of investing tissue, we proceeded to through all perirenal attachments. Gerota was pretty much gone due to size and quantitiy of PCKD. Several cysts had to be popped and suctioned to allow for visualization and dissection. The renal artery and vein were taken sequentially, 1st the artery with a white 60 mm vascular robotic staple load and then the vein. The remainign attachments were all dissected off and removed and kidney was freed. Hemostasis was very good. The robot was then undocked. All 4 incisions except for 12 robotic port and 5 mm veterinary assistant technician port were all closed with 4-0 Biosyn including the 5 mm port for the liver retractor. The abdomen was covered with Ioban. The patient was then repositioned modified left lateral flank position to proceed with robotic left nephrectomy as the right kidney had been freed. The abdomen was insufflated once again using the pre-existing port. And another 3 ports including three 8 mm robotic ports were placed in a linear fashion to proceed on the left nephrectomy. We then docked the robot and started by dissecting the colon (more content not included)... Normal [facility] PHOSPHORUSon 01-24-2023 Magnesium [Mass/Vol] 4.9 mg/dL Normal 2.5-5.0 [facility] Comment on above: Performed By: #### L [id number] #### [facility] (BEAKER) [address] [place] [address] POCT PERFUSION PANEL UNSOLIC ITED RESULTSon 01-24-2023 CO2 [Moles/Vol] 22.0 mmol/L Normal 21.0-29.0 [facility] Comment on above: Performed By: #### L [id number] ####[facility] LAB (BEAKER)[address] [place] [address] Glucose [Mass/Vol] 165 mg/dL High 70-105 [facility] Comment on above: Performed By: #### L [id number] ####[facility] LAB (BEAKER)[address] [place], [place] [address] HCO3 (Bld) [Moles/Vol] 21.0 mmol/L Low 23.0-28.0 [facility] Comment on above: Performed By: #### L [id number] ####[facility] (BEAKER)[address] [place] [address] Hematocrit (Bld) [Volume fraction] 41 % Normal 38-51 [facility] Comment on above: Performed By: #### L [id number] ####[facility] (BEAKER)[address] [place] [address] Hemoglobin (Bld) [Mass/Vol] 13.9 g/dL Normal 12.0-17.0 [facility] Comment on above: Performed By: #### L [id number] ####[facility] (BEAKER)[address] [place] [address] POCT BASE EXCESS -6.0 mmol/L Low -2.0-3.0 [facility] Comment on above: Performed By: #### L [id number] ####[facility] (BEAKER)[address] [place] [address] POCT IONIZED CALCIUM 1.58 mmol/L Critically high 1.12-1.32 [facility] Comment on above: Performed By: #### L [id number] ####[facility] (BEAKER)[address] [place] [address] POCT PCO2 46.9 mmHg Normal 41.0-51.0 [facility] Comment on above: Performed By: #### L [id number] ####[facility] ([facility])[address] [place] [address] POCT PH 7.26 Low 7.31-7.41 [facility] Comment on above: Performed By: #### L [id number] ####[facility] ([facility])[address] [place] [address] POCT PO2 124 mmHg High 80-105 [facility] Comment on above: Performed By: #### L [id number] ####[facility] ([facility])[address] [place] [address] POCT SO2 98 % Normal 95-98 [facility] Comment on above: Performed By: #### L [id number] ####[facility] ([facility])[address] [place] [address] Potassium [Moles/Vol] 4.2 mmol/L Normal 3.5-4.9 [facility] Comment on above: Performed By: #### L [id number] ####[facility] ([facility])[address] [place] [address] Sodium [Moles/Vol] 140 mmol/L Normal 138.0-146.0 [facility] Comment on above: Performed By: #### L [id number] ####[facility] ([facility])[address] [place] [address] Glucose [Mass/Vol] 118 mg/dL High 70-105 [facility] Comment on above: Performed By: #### L [id number] #### [facility] [address] [place] [address] POCT BASE EXCESS Normal [facility] Comment on above: Performed By: #### L [id number] #### [facility] [address] [place] [address] POCT HCO3 Normal [facility] Comment on above: Performed By: #### L [id number] #### [facility] ([facility] [address] [place] [address] POCT HEMATOCRIT Normal [facility] Comment on above: Performed By: #### L [id number] #### [facility] [address] [place] [address] POCT HEMOGLOBIN Normal [facility] Comment on above: Performed By: #### L [id number] #### [facility] ([facility]) [address] [place] [address] POCT IONIZED CALCIUM Normal [facility] Comment on above: Performed By: #### L [id number] #### [facility] ([facility]) [address] [place] [address] POCT PCO2 Normal [facility] Comment on above: Performed By: #### L [id number] #### [facility] ([facility]) [address] [place] [address] POCT PH Normal [facility] Comment on above: Performed By: #### L [id number] #### [facility] ([facility]) [address] [place] [address] POCT PO2 Normal [facility] Comment on above: Performed By: #### L [id number] #### [facility] ([facility]) [address] [place] [address] POCT SO2 Normal [facility] Comment on above: Performed By: #### L [id number] #### [facility] ([facility]) [address] [place] [address] POCT SODIUM Normal [facility] Comment on above: Performed By: #### L [id number] #### [facility] ([facility]) [address] [place] [address] POCT TOTAL CO2 Normal [facility] Comment on above: Performed By: #### L [id number] #### [facility] ([facility]) [address] [place] [address] Potassium [Moles/Vol] 3.9 mmol/L Normal 3.5-4.9 [facility] Comment on above: Performed By: #### L [id number] #### [facility] ([facility]) [address] [place] [address] POTASSIUM, WHOLE BLOODon Potassium [Moles/Vol] 4.3 mmol/L Normal 3.5-5.1 [facility] Comment on above: Performed By: #### L [id number] #### [facility] ([facility]) [address] [place] [address] Potassium [Moles/Vol] 4.1 mmol/L Normal 3.5-5.1 [facility] Comment on above: Performed By: #### L [id number] #### [facility] ([facility]) [address] [place] [address] SODIUM, WHOLE BLOODon 2022 SODIUM, WHOLE BLOOD 136 Normal 136-145 [facility] Comment on above: Performed By: #### L [id number] #### [facility] ([facility]) [address] [place] [address] SODIUM, WHOLE BLOOD 135 Low 136-145 [facility] Comment on above: Performed By: #### L [id number] #### [facility] ([facility]) [address] [place] [address] Orders Onlyon 01-20-2023 Orders Only [id number] Vishal Duke 1960 M Date Provider Department Center 01/20/2023 AMY BRODY [facility] Medical C Family History Problem Relation Age of Onset Alzheimer's disease Mother Coronary artery disease Father Family Status - Relation Status Age at Mother Father Normal [facility] [id number] 01-12-2023 [id number] MEDICATIONS TO TAKE DAY OF SURGERY WITH SIP OF WATER USE ALBUTEROL INHALER TAKE NEXIUM ISOSORBIDE MYFORTIC TACROLIMUS METOPROLOL HOLD PLAVIX X 5 DAYS STOP 01/19/23 PT WILL COMPLETE EKG AT [facility] ON 01/13 IF YOU ARE GOING HOME AFTER YOUR SURGERY OR PROCEDURE, FOR YOUR SAFETY, YOUR SURGERY WILL BE CANCELLED IF BOTH OF THE FOLLOWING ARE NOT AVAILABLE: An adult trolley coach driver over the age of 18, that can receive information about your care after surgery, and drive you home. A responsible adult to stay with you for 24 hours in case of an emergency. Can be same as above. The highest risk of complications is within the first 24 hours after sedation/anesthesia. Nothing to eat or drink after midnight the night before surgery. This includes gum, candy, mints, and lozenges. No alcohol, marijuana, or tobacco products including vaping for 24 hours. Please brush your teeth; don't swallow the toothpaste or water. If you use dentures, wear them but do not use paste. Please leave any other removable dental hardware at home. Do not put in contact lenses. Do not wear perfume, make-up, nail moroccan, or lotions on the day of your surgery or procedure. Follow skin-prep/wipe instructions as below if required. Bring with you: *Insurance card *Photo ID *Medication list *Co-pay for visit/prescriptions If applicable: *Rescue inhalers *Green bracelet from lab *CPAP or BiPAP machine, if staying overnight *Any braces, splints, or equipment ordered preoperatively *Remote controls for implanted devices Leave at home: *Purse/Wallet/Brooks- unless needed for co-pay *Cell phone (can leave with family/friend or place in locker if needed) *Jewelry (including piercings and wedding bands) *If not possible, ask the person who is waiting with you to keep them Children under the age of 12 will not be allowed into patient care areas. We will call you between 3pm and 4pm the day before your surgery to give you an arrival time. If you do not receive this call, have any questions, or need to make any changes, please call [phone]. Notify your surgeon if you develop any illness such as a cold, cough, fever, sore throat or vomiting between now and your surgery. Thank you for entrusting us with your care. [facility] Surgical Services Team Normal [facility] Orders Onlyon 01-12-2023 Orders Only [id number] Vishal Duke 1960 [facility] Provider Department Center 01/12/2023 AMY BRODY [facility] PAT LA Medical C Family History Problem Relation Age of Onset Alzheimer's disease Mother Coronary artery disease Father Family Status - Relation Status Age at Mother Father Normal [facility] APTTon 01-06-2023 ACTIVATED PARTIAL THROMBOPLASTIN TIME IN PPP BY COAGULATION ASSAY 27.0 Seconds Normal 25.0-35.0 [facility] Comment on above: Result Comment: Clin ical significance of the APTT is questionable in the presence of heparin. Performed By: #### L [id number] #### [facility] [address] [place] [address] CBC WITH AUTO DIFFERENTIALon 01-06-2023 Basophils (Bld) [#/Vol] 0.07 10*3/uL Normal 0.00-0.20 [facility] Comment on above: Performed By: #### L [id number] #### [facility] ([facility]) [address] [place] [address] Basophils/100 WBC (Bld) 1.0 % Normal 0.0-1.0 [facility] Comment on above: Performed By: #### L [id number] #### [facility] [address] [place] [address] Eosinophils (Bld) [#/Vol] 0.12 10*3/uL Normal 0.00-0.50 [facility] Comment on above: Performed By: #### L [id number] #### [facility] [address] [place] [address] Eosinophils/100 WBC (Bld) 1.8 % Normal 0.0-6.0 [facility] Comment on above: Performed By: #### L [id number] #### [facility] ([facility] [address] [place] [address] Erythrocyte distribution width (RBC) [Ratio] 14.5 % Normal 11.5-15.0 [facility] Comment on above: Performed By: #### L [id number] #### [facility] (BEAKER) [address] [place] [address] ERYTHROCYTE MEAN CORPUSCULAR HEMOGLOBIN CONCENTRATION (G/DL) BY AUTOMATED 32.3 g/dL Normal 32.0-35.0 [facility] Comment on above: Performed By: #### L [id number] #### [facility] (AKER) [address] [place] [address] Hematocrit (Bld) [Volume fraction] 50.8 % Normal 39.0-55.0 [facility] Comment on above: Performed By: #### L [id number] #### [facility] ([facility]) [address] [place] [address] Hemoglobin (Bld) [Mass/Vol] 16.4 g/dL Normal 13.0-17.0 [facility] Comment on above: Performed By: #### L [id number] #### [facility] ([facility]) [address] [place] [address] Immature granulocytes (Bld) [#/Vol] 0.03 10*3/uL Normal 0.00-0.20 [facility] Comment on above: Performed By: #### L [id number] #### [facility] ([facility]) [address] [place] [address] Immature granulocytes/100 WBC (Bld) 0.4 % Normal 0.0-1.0 [facility] Comment on above: Performed By: #### L [id number] #### [facility] (BEAKER) [address] [place] [address] Lymphocytes (Bld) [#/Vol] 1.05 10*3/uL Low 1.20-4.00 [facility] Comment on above: Performed By: #### L [id number] #### [facility] (BEAKER) [address] [place] [address] Lymphocytes/100 WBC (Bld) 15.5 % Low 20.0-45.0 [facility] Comment on above: Performed By: #### L [id number] #### [facility] (BEAKER) [address] [place] [address] MCH (RBC) [Entitic mass] 29.4 pg Normal 27.0-33.0 [facility] Comment on above: Performed By: #### L [id number] #### [facility] [address] [place] [address] MCV (RBC) [Entitic vol] 91.2 fL Normal 82.0-98.0 [facility] Comment on above: Performed By: #### L [id number] #### [facility] ([facility]) [address] [place] [address] Monocytes (Bld) [#/Vol] 0.73 10*3/uL Normal 0.10-1.00 [facility] Comment on above: Performed By: #### L [id number] #### [facility] ([facility]) [address] [place] [address] Monocytes/100 WBC (Bld) 10.8 % Normal 5.0-12.0 [facility] Comment on above: Performed By: #### L [id number] #### [facility] ([facility]) [address] [place] [address] Neutrophils (Bld) [#/Vol] 4.76 10*3/uL Normal 1.60-7.60 [facility] Comment on above: Performed By: #### L [id number] #### [facility] ([facility]) [address] [place] [address] Neutrophils/100 WBC (Bld) 70.5 % Normal 40.0-72.0 [facility] Comment on above: Performed By: #### L [id number] #### [facility] [address] [place] [address] NRBC (PER 100 WBCS) BY AUTOMATED COUNT 0.0 % Normal 0 [facility] Comment on above: Performed By: #### L [id number] #### [facility] (BEAKER) [address] [place] [address] PLATELETS (10*3/UL) IN BLOOD AUTOMATED COUNT 230 10*3/uL Normal 150-400 [facility] Comment on above: Performed By: #### L [id number] #### [facility] ([facility]) [address] [place] [address] RBC (Bld) [#/Vol] 5.57 10*6/uL Normal 4.20-5.70 [facility] Comment on above: Performed By: #### L [id number] #### [facility] ([facility]) [address] [place] [address] WBC (Bld) [#/Vol] 6.76 10*3/uL Normal 4.00-10.60 [facility] Comment on above: Performed By: #### L [id number] #### [facility] ([facility]) [address] [place] [address] COMPREHENSIVE METABOLIC PANE Nitin 01-06-2023 Albumin [Mass/Vol] 4.7 g/dL Normal 3.5-5.7 [facility] Comment on above: Performed By: #### L [id number] ####[facility] ([facility])[address] [place] [address] ALP [Catalytic activity/Vol] 82 U/L Normal 34-104 [facility] Comment on above: Performed By: #### L [id number] ####[facility] ([facility])[address] [place] [address] ALT [Catalytic activity/Vol] 22 U/L Normal 7-52 [facility] Comment on above: Performed By: #### L [id number] ####[facility] ([facility])[address] [place] [address] Anion gap [Moles/Vol] 10 mmol/L Normal 7-20 [facility] Comment on above: Performed By: #### L [id number] ####[facility] ([facility])[address] [place] [address] AST [Catalytic activity/Vol] 18 U/L Normal 13-39 [facility] Comment on above: Performed By: #### L [id number] ####[facility] ([facility]AKER)[address] [place] [address] Bilirubin [Mass/Vol] 0.9 mg/dL Normal 0.3-1.0 [facility] Comment on above: Performed By: #### L [id number] ####[facility] (BEAKER)[address] [place] [address] Calcium [Mass/Vol] 9.6 mg/dL Normal 8.6-10.3 [facility] Comment on above: Performed By: #### L [id number] ####[facility] (BEAKER)[address] [place] [address] Chloride [Moles/Vol] 105 mmol/L Normal 98-107 [facility] Comment on above: Performed By: #### L [id number] ####[facility] (BEAKER)[address] [place] [address] CO2 [Moles/Vol] 28 mmol/L Normal 21-31 [facility] Comment on above: Performed By: #### L [id number] ####[facility] (BEAKER)[address] [place] [address] Creatinine [Mass/Vol] 1.27 mg/dL Normal 0.70-1.30 [facility] Comment on above: Performed By: #### L [id number] ####[facility] (BEAKER)[address] [place] [address] GLOMERULAR FILTRATION RATE ML/MIN/1.73 SQ M.PREDICTED 63.9 mL/min/1.73m*2 Normal >60.0 [facility] Comment on above: Result Comment: The [facility]???s estimated glomerular filtration rate (eGFR) will no longer include consideration of race in its calculation. The National Kidney Foundation???s eGFR Task Force developed new recommendations for the estimation of the glomerular filtration rate in the [place] They recommend immediate implementation of the new equation refit without the race variable in all laboratories because the calculation does not include race. In addition to not including race in the calculation and reporting, it included diversity in its development, and has acceptable performance characteristics and potential consequences that do not disproportionately affect any one group of individuals. Performed By: #### L [id number] ####[facility] ([facility])[address] [place] [address] Glucose [Mass/Vol] 117 mg/dL High 70-100 [facility] Comment on above: Performed By: #### L [id number] ####[facility] ([facility])[address] [place] [address] Potassium [Moles/Vol] 4.4 mmol/L Normal 3.5-5.1 [facility] Comment on above: Performed By: #### L [id number] ####[facility] ([facility])[address] [place] [address] Protein [Mass/Vol] 6.8 g/dL Normal 6.0-8.3 [facility] Comment on above: Performed By: #### L [id number] ####[facility] ([facility])[address] [place] [address] Sodium [Moles/Vol] 139 mmol/L Normal 136-145 [facility] Comment on above: Performed By: #### L [id number] ####[facility] ([facility])[address] [place] [address] Urea nitrogen [Mass/Vol] 20 mg/dL Normal 7-25 [facility] Comment on above: Performed By: #### L [id number] ####[facility] ([facility])[address] [place] [address] UREA NITROGEN/CREATININE (MASS RATIO) IN SER/PLAS 15.7 Normal [facility] Comment on above: Performed By: #### L [id number] ####[facility] ([facility])[address] [place] [address] CT ABDOMEN PELVIS WO IV CONT Angelita 01-06-2023 CT ABDOMEN PELVIS WO IV CONTRAST History:Adult polycystic renal disease. Abdominal bloating. Renal transplant CT abdomen and pelvis without contrast Comparison:12/01/2020 Technique: Axial images to the abdomen and pelvis were obtained without contrast. Subsequently sagittal and coronal images were submitted to PACS. Automated exposure control was used Findings: CT abdomen: Extensive cystic involvement in the liver is again appreciated. Few are partially calcified. No obvious interval change. The gallbladder is nondistended. Small gallstone is noted. The spleen and pancreas appear stable. The adrenal glands appear stable. [place] kidneys are diffusely replaced by cystic change. There are a few higher attenuation lesions present. The lesion that previously had higher attenuation now appears to be more lower in attenuation. No imaging evidence of cyst rupture Little interval change. Atherosclerotic disease is noted. No AAA. CT pelvis: No dilated bowel loops or pericolonic fat stranding. No enlarged pelvic or inguinal lymph nodes. No free fluid. No urinary bladder stone is noted. No free fluid is observed. The renal transplant is located in the right lower quadrant and appears unchanged Lumbar spine is unchanged. IMPRESSION: Impression: *No acute intraperitoneal process is noted. Chronic findings are detailed above' All CT scans at this facility use dose modulation, iterative reconstruction, and/or weight based dosing when appropriate to reduce radiation dose to as low as reasonably achievable. Electronically signed: Dona Escobar. Normal [facility] Labon 01-06-2023 Lab [id number] Vishal Duke 1960 Date Provider Department Center 01/06/2023 0103-[facility] OPD LAB RESOURCE [facility] Medical C Family History Problem Relation Age of Onset Alzheimer's disease Mother Coronary artery disease Father Family Status - Relation Status Age at Mother Father Normal [facility] PROTIME-INRon 01-06-2023 INR IN PPP BY COAGULATION ASSAY 1.07 Normal 0.90-1.10 [facility] Comment on above: Result Comment: ACCC P RECOMMENDED INR FOR WARFARIN THERAPY CONDITION INR PROPHYLAXIS OF VENOUS THROMBOSIS 2-3 (HIGH-RISK SURGERY) TREATMENT OF VENOUS THROMBOSIS 2-3 TREATMENT OF PULMONARY EMBOLISM 2-3 PREVENTION OF SYSTEMIC EMBOLISM: 2-3 ACUTE MYOCARDIAL INFARCTION TISSUE HEART VALVES VALVULAR HEART DISEASE ATRIAL FIBRILLATION RECURRENT SYSTEMIC EMBOLISM MECHANICAL HEART VALVE 2.5-3.5 FROM: ORAL ANTICOAGULANTS. MECHANISM OF ACTION, CLINICAL EFFECTIVENESS, AND OPTIMAL THERAPEUTIC RANGE. CHEST 1995;108:231S-246S. Performed By: #### L [id number] ####[facility] ([facility])[address] [place] [address] PROTHROMBIN TIME (PT) IN PPP BY COAGULATION ASSAY 13.9 Seconds Normal 12.3-14.8 [facility] Comment on above: Performed By: #### L [id number] ####[facility] ([facility])[address] [place] [address] TYPE AND SCREENon 01-06-2023 AB SCREEN Negative Normal [facility] Comment on above: Performed By: #### L [id number] ####[facility] BLOOD BANK, ABO group Nom (Bld) A Normal [facility] Comment on above: Performed By: #### L [id number] ####[facility] BLOOD [facility], RH TYPE IN BLOOD Positive Normal [facility] Comment on above: Performed By: #### L [id number] ####[facility] BLOOD [facility], BILIRUBIN, DIRECTon 12-23-19 23 Magnesium [Mass/Vol] 0.2 mg/dL Normal 0-0.2 [facility] Comment on above: Performed By: #### L [id number] #### [facility] ([facility]) [address] [place] [address] CBC WITH AUTO DIFFERENTIALon 12-22-2022 Basophils (Bld) [#/Vol] 0.04 10*3/uL Normal 0.00-0.20 [facility] Comment on above: Performed By: #### L [id number] #### [facility] ([facility]) [address] [place] [address] Basophils/100 WBC (Bld) 0.5 % Normal 0.0-1.0 [facility] Comment on above: Performed By: #### L [id number] #### [facility] (BEAKER) [address] [place] [address] Eosinophils (Bld) [#/Vol] 0.12 10*3/uL Normal 0.00-0.50 [facility] Comment on above: Performed By: #### L [id number] #### [facility] ([facility]) [address] [place] [address] Eosinophils/100 WBC (Bld) 1.6 % Normal 0.0-6.0 [facility] Comment on above: Performed By: #### L [id number] #### [facility] ([facility]) [address] [place] [address] Erythrocyte distribution width (RBC) [Ratio] 14.6 % Normal 11.5-15.0 [facility] Comment on above: Performed By: #### L [id number] #### [facility] ([facility]) [address] [place] [address] ERYTHROCYTE MEAN CORPUSCULAR HEMOGLOBIN CONCENTRATION (G/DL) BY AUTOMATED 32.5 g/dL Normal 32.0-35.0 [facility] Comment on above: Performed By: #### L [id number] #### [facility] ([facility]) [address] [place] [address] Hematocrit (Bld) [Volume fraction] 50.1 % Normal 39.0-55.0 [facility] Comment on above: Performed By: #### L [id number] #### [facility] ([facility]) [address] [place] [address] Hemoglobin (Bld) [Mass/Vol] 16.3 g/dL Normal 13.0-17.0 [facility] Comment on above: Performed By: #### L [id number] #### [facility] [address] [place] [address] Immature granulocytes (Bld) [#/Vol] 0.05 10*3/uL Normal 0.00-0.20 [facility] Comment on above: Performed By: #### L [id number] #### [facility] (BEAKER) [address] [place] [address] Immature granulocytes/100 WBC (Bld) 0.7 % Normal 0.0-1.0 [facility] Comment on above: Performed By: #### L [id number] #### [facility] (BEAKER) [address] [place] [address] Lymphocytes (Bld) [#/Vol] 1.03 10*3/uL Low 1.20-4.00 [facility] Comment on above: Performed By: #### L [id number] #### [facility] ([facility]) [address] [place] [address] Lymphocytes/100 WBC (Bld) 13.4 % Low 20.0-45.0 [facility] Comment on above: Performed By: #### L [id number] #### [facility] [address] [place] [address] MCH (RBC) [Entitic mass] 29.9 pg Normal 27.0-33.0 [facility] Comment on above: Performed By: #### L [id number] #### [facility] [address] [place] [address] MCV (RBC) [Entitic vol] 91.8 fL Normal 82.0-98.0 [facility] Comment on above: Performed By: #### L [id number] #### [facility] (BEAKER) [address] [place] [address] Monocytes (Bld) [#/Vol] 0.73 10*3/uL Normal 0.10-1.00 [facility] Comment on above: Performed By: #### L [id number] #### [facility] (BEAKER) [address] [place] [address] Monocytes/100 WBC (Bld) 9.5 % Normal 5.0-12.0 [facility] Comment on above: Performed By: #### L [id number] #### [facility] (BEAKER) [address] [place] [address] Neutrophils (Bld) [#/Vol] 5.69 10*3/uL Normal 1.60-7.60 [facility] Comment on above: Performed By: #### L [id number] #### [facility] (BEAKER) [address] [place] [address] Neutrophils/100 WBC (Bld) 74.3 % High 40.0-72.0 [facility] Comment on above: Performed By: #### L [id number] #### [facility] [address] [place] [address] NRBC (PER 100 WBCS) BY AUTOMATED COUNT 0.0 % Normal 0 [facility] Comment on above: Performed By: #### L [id number] #### [facility] [address] [place] [address] PLATELETS (10*3/UL) IN BLOOD AUTOMATED COUNT 247 10*3/uL Normal 150-400 [facility] Comment on above: Performed By: #### L [id number] #### [facility] ([facility]) [address] [place] [address] RBC (Bld) [#/Vol] 5.46 10*6/uL Normal 4.20-5.70 [facility] Comment on above: Performed By: #### L [id number] #### [facility] [address] [place] [address] WBC (Bld) [#/Vol] 7.66 10*3/uL Normal 4.00-10.60 [facility] Comment on above: Performed By: #### L [id number] #### [facility] [address] [place] [address] COMPREHENSIVE METABOLIC PANE Nitin 12-22-2022 Albumin [Mass/Vol] 4.6 g/dL Normal 3.5-5.7 [facility] Comment on above: Performed By: #### L [id number] #### [facility] (BEAKER) [address] [place] [address] ALP [Catalytic activity/Vol] 88 U/L Normal 34-104 [facility] Comment on above: Performed By: #### L [id number] #### [facility] ([facility]) [address] [place] [address] ALT [Catalytic activity/Vol] 24 U/L Normal 7-52 [facility] Comment on above: Performed By: #### L [id number] #### [facility] ([facility]) [address] [place] [address] Anion gap [Moles/Vol] 12 mmol/L Normal 7-20 [facility] Comment on above: Performed By: #### L [id number] #### [facility] ([facility]) [address] [place] [address] AST [Catalytic activity/Vol] 19 U/L Normal 13-39 [facility] Comment on above: Performed By: #### L [id number] #### [facility] ([facility]) [address] [place] [address] Bilirubin [Mass/Vol] 0.7 mg/dL Normal 0.3-1.0 [facility] Comment on above: Performed By: #### L [id number] #### [facility] ([facility]) [address] [place] [address] Calcium [Mass/Vol] 9.2 mg/dL Normal 8.6-10.3 [facility] Comment on above: Performed By: #### L [id number] #### [facility] ([facility]) [address] [place] [address] Chloride [Moles/Vol] 105 mmol/L Normal 98-107 [facility] Comment on above: Performed By: #### L [id number] #### [facility] ([facility]) [address] [place] [address] CO2 [Moles/Vol] 27 mmol/L Normal 21-31 [facility] Comment on above: Performed By: #### L [id number] #### [facility] ([facility]) [address] [place] [address] Creatinine [Mass/Vol] 1.27 mg/dL Normal 0.70-1.30 [facility] Comment on above: Performed By: #### L [id number] #### [facility] ([facility]) [address] [place] [address] GLOMERULAR FILTRATION RATE ML/MIN/1.73 SQ M.PREDICTED 64.3 mL/min/1.73m*2 Normal >60.0 [facility] Comment on above: Result Comment: The [facility]???s estimated glomerular filtration rate (eGFR) will no longer include consideration of race in its calculation. The National Kidney Foundation???s eGFR Task Force developed new recommendations for the estimation of the glomerular filtration rate in the [place] They recommend immediate implementation of the new equation refit without the race variable in all laboratories because the calculation does not include race. In addition to not including race in the calculation and reporting, it included diversity in its development, and has acceptable performance characteristics and potential consequences that do not disproportionately affect any one group of individuals. Performed By: #### L [id number] #### [facility] ([facility]) [address] [place] [address] Glucose [Mass/Vol] 105 mg/dL High 70-100 [facility] Comment on above: Performed By: #### L [id number] #### [facility] ([facility]) [address] [place] [address] Potassium [Moles/Vol] 3.9 mmol/L Normal 3.5-5.1 [facility] Comment on above: Performed By: #### L [id number] #### [facility] ([facility]) [address] [place] [address] Protein [Mass/Vol] 6.7 g/dL Normal 6.0-8.3 [facility] Comment on above: Performed By: #### L [id number] #### [facility] ([facility]) [address] [place] [address] Sodium [Moles/Vol] 140 mmol/L Normal 136-145 [facility] Comment on above: Performed By: #### L [id number] #### [facility] [address] [place] [address] Urea nitrogen [Mass/Vol] 15 mg/dL Normal 7-25 [facility] Comment on above: Performed By: #### L [id number] #### [facility] ([facility]) [address] [place] [address] UREA NITROGEN/CREATININE (MASS RATIO) IN SER/PLAS 11.8 Normal [facility] Comment on above: Performed By: #### L [id number] #### [facility] ([facility]) [address] [place] [address] FERRITINon 12-22-2022 FERRITIN (NG/ML) IN SER/PLAS 32.0 ng/mL Normal 24.0-336.0 [facility] Comment on above: Performed By: #### L [id number] ####[facility] ([facility])[address] [place] [address] Follow-Upon 12-22-2022 Follow-Up [id number] Vishal Duke 1960 M Date Provider Department [place] 12/22/2022 [id number]-EKINES OBI TXP None Family History Problem Relation Age of Onset Alzheimer's disease Mother Coronary artery disease Father Family Status - Relation Status Age at Mother Father Level of Service:91819 SC OFFICE/OUTPATIENT ESTABLISHED MOD MDM 30-39 MIN Reason for Visit and Comments: Kidney Follow-up [] Normal [facility] LIPID PANELon 12-22-2022 CHOL/HDL 2.9 mg/dL Normal [facility] Comment on above: Performed By: #### L [id number] ####[facility] ([facility] [place] [address] Cholesterol [Mass/Vol] 123 mg/dL Normal 120-200 [facility] Comment on above: Performed By: #### L [id number] ####[facility] ([employer])[address] [place] [address] Magnesium [Mass/Vol] 162 mg/dL High 40-149 [facility] Comment on above: Result Comment: TRIG LYCERIDE REFERENCE RANGE: 20 YEARS AND OLDER CARDIOVASCULAR RISK LESS THAN 150 mg/dL LOW RISK 150 TO 199 mg/dL BORDERLINE RISK 200 mg/dL AND GREATER HIGH RISK Performed By: #### L [id number] ####[facility] ([facility] [place] [address] Magnesium [Mass/Vol] 48 mg/dL Normal 0-160 [facility] Comment on above: Performed By: #### L [id number] ####[facility] ([facility])[address] [place] [address] Magnesium [Mass/Vol] 43 mg/dL Normal 23-92 [facility] Comment on above: Performed By: #### L [id number] ####[facility] ([facility])[address] [place] [address] NON HDL CHOL. (LDL+VLDL) 80 Normal [facility] Comment on above: Performed By: #### L [id number] ####[facility] ([facility])[address] [place] [address] TOTAL VLDL-C 32 mg/dL Normal 0-40 [facility] Comment on above: Performed By: #### L [id number] ####[facility] ([facility])[address] [place] [address] Labon 12-22-2022 Lab [id number] Vishal Duke 1960 M Date Provider Department [place] 12/22/2022 [id number] DRAW STATION KXT Draw [facility] Family History Problem Relation Age of Onset Alzheimer's disease Mother Coronary artery disease Father Family Status - Relation Status Age at Mother Father Normal [facility] MAGNESIUMon 12-22-2022 Magnesium [Mass/Vol] 1.5 mg/dL Low 1.9-2.7 [facility] Comment on above: Performed By: #### L [id number] #### [facility] ([facility]) [address] [place] [address] Orders Onlyon 12-22-2022 Orders Only [id number] Vishal Duke 1960 M Date Provider Department Center 12/22/2022 263-JOEL, OBI TXP None Family History Problem Relation Age of Onset Alzheimer's disease Mother Coronary artery disease Father Family Status - Relation Status Age at Mother Father Normal [facility] Orders Only [id number] Vishal Duke 1960 M Date Provider Department Center 12/22/2022 435-LILA CAMPOS [facility] URO Second Fl Family History Problem Relation Age of Onset Alzheimer's disease Mother Coronary artery disease Father Family Status - Relation Status Age at Mother Father Normal [facility] PHOSPHORUSon 12-22-2022 Magnesium [Mass/Vol] 3.4 mg/dL Normal 2.5-5.0 [facility] Comment on above: Performed By: #### L [id number] #### [facility] HOSPITAL LAB (BEAKER) [address] [place] [address] SINGLE ANTIGEN CLASS Ion AB SCREEN COMMENTS No Class I donor specific antibody identified Normal [facility] Comment on above: Performed By: #### L [id number] ####[facility] TISSUE TYPING (HISTOTRAC)[address] [place] [address] [place] CLASS I TESTED DATE Normal [facility] Comment on above: Performed By: #### L [id number] ####[facility] TISSUE TYPING (HISTOTRAC)[address] [place] [address] [facility] SINGLE ANTIGEN CLASS 1 TEST METHOD Class I Single Antigen Normal [facility] Comment on above: Performed By: #### L [id number] ####[facility] TISSUE TYPING (HISTOTRAC)[address] [place] [address] [place] SINGLE ANTIGEN CLASS IIon AB SCREEN COMMENTS No Class II donor specific antibody identified Normal [facility] Comment on above: Performed By: #### L [id number] ####[facility] TISSUE TYPING (HISTOTRAC)[address] [place] [address] [place] CLASS II TESTED DATE Normal [facility] Comment on above: Performed By: #### L [id number] ####[facility] TISSUE TYPING (HISTOTRAC)[address] SIGNED BY Signed by James farrell CHT([facility]) TITI([facility]), Tube Making Machine Operator Transplant Immunology Normal [facility] Comment on above: Performed By: #### L [id number] ####[facility] TISSUE TYPING (HISTOTRAC)[address] Result Comment: Clas s I Antigen Microbeads Performed By: #### L [id number] ####[facility] TISSUE TYPING (HISTOTRAC)[address] SINGLE ANTIGEN CLASS 2 TEST METHOD Class II Single Antigen Normal [facility] Comment on above: Result Comment: Clas s II Antigen Microbeads Performed By: #### L [id number] ####[facility] TISSUE TYPING (HISTOTRAC)[address] TACROLIMUS LEVELon Tacrolimus (Bld) [Mass/Vol] 7.9 ng/mL Normal 5.0-20.0 [facility] Comment on above: Result Comment: The [employer] Tacrolimus assay is a delayed one-step immunoassay for the quantitative determination of tacrolimus in human whole blood using the chemiluminescent microparticle immunoassay (CMIA) technology with flexible assay protocols, referred to as Chemiflex. Performed By: #### L [id number] ####[facility] (BEAKER)[address] [place] [address] URIC ACIDon 12-22-2022 Magnesium [Mass/Vol] 4.9 mg/dL Normal 4.4-7.6 [facility] Comment on above: Performed By: #### L [id number] ####[facility] ([facility])[address] [place] [address] Office Visiton 12-05-2022 Follow-up visit [id number] Vishal Duke 1960 M Date Provider Department Center 12/05/2022 [place] [facility] Family History Problem Relation Age of Onset Alzheimer's disease Mother Coronary artery disease Father Family Status - Relation Status Age at Mother Father Level of Service:84294 SC OFFICE/OUTPATIENT ESTABLISHED LOW MDM 20-29 MIN Normal [facility] Orders Onlyon 12-05-2022 Orders Only [id number] Vishal Duke 1960 M Date Provider Department Center 12/05/2022 LASH[facility] Family History Problem Relation Age of Onset Alzheimer's disease Mother Coronary artery disease Father Family Status - Relation Status Age at Mother Father Normal [facility] CT CHEST WO IV CONTRASTon CT CHEST WO IV CONTRAST CT CHEST WO IV CONTRAST 11/15/2022 9:42 AM CLINICAL INDICATIONS:Dyspnea on exertion, previous Covid infection. PROTOCOL: CT of the chest without contrast TECHNIQUE: Multidetector CT axial slices of the chest were obtained without IV contrast. Multiplanar reformats were performed and viewed on a separate workstation and reviewed to further define anatomy and possible pathology. All CT scans at this facility use dose modulation, iterative reconstruction, and/or weight based dosing when appropriate to reduce radiation dose to as low as reasonably achievable. COMPARISON: CT dated 06/01/2021. 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 Multifocal interstitial thickening with patchy groundglass opacities, not significantly changed, consistent with the scarring from prior infectious/inflammatory process. No new infiltrates are seen. No pleural or pericardial effusions. No enlarged lymph nodes. 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 IMPRESSION: 1. Extensive coronary artery calcifications. 2. Multifocal interstitial thickening with patchy groundglass opacities, unchanged, consistent with sequelae of prior infectious/inflammatory process. 3. No pleural effusion or enlarged lymph nodes. 4. Peripherally thickened cystic lesion in the left kidney, not fully evaluated, consider follow-up MRI with and without contrast. Electronically signed: ONELIA WHITE. Normal [facility] Documentationon 11-01-2022 Documentation [id number] Vishal Duke 1960 M Date Provider Department Center 11/01/2022 319TIM AGUIRRE None Family History Problem Relation Age of Onset Alzheimer's disease Mother Coronary artery disease Father Family Status - Relation Status Age at Mother Father [facility] Office Visiton 10-24-2022 Follow-up visit [id number] Vishal Duke 1960 M Date Provider Department Center 10/24/2022 3861-MADIE BROWN [facility] PULM Comprehensiv Family History Problem Relation Age of Onset Alzheimer's disease Mother Coronary artery disease Father Family Status - Relation Status Age at Mother Father Level of Service:56672 SC OFFICE/OUTPATIENT ESTABLISHED LOW MDM 20-29 MIN () Reason for Visit and Comments: Breathing Problem [17] - More SOB and coughing with weather and air quality changes [facility] Documentationon 10-13-2022 Documentation [id number] Vishal Duke 1960 M Date Provider Department Center 10/13/2022 3193-TIM FOY None Family History Problem Relation Age of Onset Alzheimer's disease Mother Coronary artery disease Father Family Status - Relation Status Age at Mother Father [facility] Documentationon 10-06-2022 Documentation [id number] Vishal Duke 1960 M Date Provider Department Center 10/06/2022 319Rut-TIM FOY None Family History Problem Relation Age of Onset Alzheimer's disease Mother Coronary artery disease Father Family Status - Relation Status Age at Mother Father [facility] 29on 09-27-2022 29 Addended by: DEREK MCCOY on: 09/27/2022 12:23 PM Modules accepted: Orders [facility] Follow-Upon 09-27-2022 Follow-Up [id number] Vishal Duke 1960 M Date Provider Department Center 09/27/2022 124-PETEY ZHANG TXHumberto None Family History Problem Relation Age of Onset Alzheimer's disease Mother Coronary artery disease Father Family Status - Relation Status Age at Mother Father Level of Service:13375 SC OFFICE/OUTPATIENT ESTABLISHED LOW MDM 20-29 MIN Reason for Visit and Comments: Kidney Follow-up [] - No major concerns today [facility] Documentationon 09-06-2022 Documentation [id number] Vishal Duke 1960 M Date Provider Department Center 09/06/2022 3193-TIM FOY TXP None Family History Problem Relation Age of Onset Alzheimer's disease Mother Coronary artery disease Father Family Status - Relation Status Age at Mother Father Normal [facility] FK506 (TACROLIMUS) WHOLE BLO ODon 08-21-2022 Tacrolimus (FK506), Blood 6.0 ng/mL Normal 2.0-20.0 [facility] Comment on above: Result Comment: Trou gh (immediately following transplant) 15.0 . Trough (steady state, 2 weeks or more after transplant): 3.0 - 8.0 . Performed by LC-MS/MS technology. Performed By: #### P HOS, URIC, MG, CMP, DBIL, LIPID #### [facility] [address] [place] [address] Dr. Karla Lagos BK VIRUS PCR QUANTon 023 BKV DNA QUANT PCR PLASMA Negative Normal Negative [facility] Comment on above: Result Comment: No B K DNA detected. . The linear range of the assay is 22 - 100,000,000 IU/mL. Performed By: #### P HOS, URIC, MG, CMP, DBIL, LIPID #### [facility] [address] [address] [address] Karla Lagos Log10 BKV DNA Plasma Normal [facility] Comment on above: Performed By: #### P HOS, URIC, MG, CMP, DBIL, LIPID #### [facility] [address] [address] [address] Karla Lagos BILIRUBIN CONJUGATED (DIRECT )on 08-18-2022 BILI, CONJUGATED 0.2 mg/dL Normal 0.0-0.2 [facility] Comment on above: Performed By: #### P HOS, URIC, MG, CMP, DBIL, LIPID #### [facility] [address] [place] [address] Dr. Karla Lagos CBC AUTO DIFFon 08-18-2022 BASO # 0.1 103/ul Normal 0.0-0.1 [facility] Comment on above: Performed By: #### P HOS, URIC, MG, CMP, DBIL, LIPID #### [facility] [address] [place] [address] Dr. Karla Lagos Basophils/100 WBC (Bld) 1.0 % Normal 0.2-2.0 [facility] Comment on above: Performed By: #### P HOS, URIC, MG, CMP, DBIL, LIPID #### [facility] [address] [place] [address] Dr. Karla Lagos EO # 0.1 103/ul Normal 0.0-0.7 [facility] Comment on above: Performed By: #### P HOS, URIC, MG, CMP, DBIL, LIPID #### [facility] [address] [place] [address] Dr. Karla Lagos Eosinophils/100 WBC (Bld) 1.3 % Normal 0.9-7.0 [facility] Comment on above: Performed By: #### P HOS, URIC, MG, CMP, DBIL, LIPID #### [facility] [address] [place] [address] Dr. Karla Lagos Erythrocyte distribution width (RBC) [Ratio] 14.0 % Normal 11.0-15.0 [facility] Comment on above: Performed By: #### P HOS, URIC, MG, CMP, DBIL, LIPID #### [facility] [address] [place] [address] Dr. Karla Lagos Hematocrit (Bld) [Volume fraction] 52.7 % Normal 42.0-54.0 [facility] Comment on above: Performed By: #### P HOS, URIC, MG, CMP, DBIL, LIPID #### [facility] [address] [place] [address] Dr. Karla Lagos Hemoglobin (Bld) [Mass/Vol] 17.0 g/dL Normal 14.0-18.0 [facility] Comment on above: Performed By: #### P HOS, URIC, MG, CMP, DBIL, LIPID #### [facility] [address] [place] [address] Dr. Karla Lagos IG # 0.03 10e3/ul Normal 0.00-0.03 [facility] Comment on above: Performed By: #### P HOS, URIC, MG, CMP, DBIL, LIPID #### [facility] [address] [address] [address] Karla Lagos IG % 0.4 % Normal 0.0-0.5 [facility] Comment on above: Performed By: #### P HOS, URIC, MG, CMP, DBIL, LIPID #### [facility] [address] [place] [address] Dr. Karla Lagos LYMPH # 1.1 103/ul Critically low 1.2-3.8 [facility] Comment on above: Performed By: #### P HOS, URIC, MG, CMP, DBIL, LIPID #### [facility] [address] [place] [address] Dr. Karla Lagos Lymphocytes/100 WBC (Bld) 16.0 % Critically low 20.5-60.0 [facility] Comment on above: Performed By: #### P HOS, URIC, MG, CMP, DBIL, LIPID #### [facility] [address] [place] [address] Dr. Karla Lagos MANUAL DIFF REQ NO Normal [facility] Comment on above: Performed By: #### P HOS, URIC, MG, CMP, DBIL, LIPID #### [facility] [address] [place] [address] Dr. Karla Lagos MCH (RBC) [Entitic mass] 29.9 pg Normal 25.9-34.0 [facility] Comment on above: Performed By: #### P HOS, URIC, MG, CMP, DBIL, LIPID #### [facility] [address] [place] [address] Dr. Karla Lagos MCHC (RBC) [Mass/Vol] 32.3 g/dL Normal 29.9-35.2 [facility] Comment on above: Performed By: #### P HOS, URIC, MG, CMP, DBIL, LIPID #### [facility] [address] [place] [address] Dr. Karla Lagos MCV (RBC) [Entitic vol] 92.6 fL Normal 80.0-94.0 [facility] Comment on above: Performed By: #### P HOS, URIC, MG, CMP, DBIL, LIPID #### [facility] [address] [place] [address] Dr. Karla Lagos MONO # 0.7 103/ul Normal 0.3-0.8 [facility] Comment on above: Performed By: #### P HOS, URIC, MG, CMP, DBIL, LIPID #### [facility] [address] [place] [address] Dr. Karla Lagos Monocytes/100 WBC (Bld) 10.6 % Normal 1.7-12.0 [facility] Comment on above: Performed By: #### P HOS, URIC, MG, CMP, DBIL, LIPID #### [facility] [address] [place] [address] Dr. Karla Lagos NEUT # 5.0 103/ul Normal 1.4-6.5 [facility] Comment on above: Performed By: #### P HOS, URIC, MG, CMP, DBIL, LIPID #### [facility] [address] [place] [address] Dr. Karla Lagos Neutrophils/100 WBC (Bld) 70.7 % Normal 43.0-75.0 [facility] Comment on above: Performed By: #### P HOS, URIC, MG, CMP, DBIL, LIPID #### [facility] [address] [place] [address] Dr. Karla Lagos Platelet mean volume (Bld) [Entitic vol] 10.3 fL Normal 9.5-13.5 [facility] Comment on above: Performed By: #### P HOS, URIC, MG, CMP, DBIL, LIPID #### [facility] [address] [place] [address] Dr. Karla Lagos PLT 263 103/ul Normal 150-450 [facility] Comment on above: Performed By: #### P HOS, URIC, MG, CMP, DBIL, LIPID #### [facility] [address] [place] [address] Dr. Karla Lagos RBC 5.69 106/ul Normal 4.70-6.10 [facility] Comment on above: Performed By: #### P HOS, URIC, MG, CMP, DBIL, LIPID #### [facility] [address] [address] [address] Karla Lagos WBC 7.0 103/ul Normal 4.0-11.0 [facility] Comment on above: Performed By: #### P HOS, URIC, MG, CMP, DBIL, LIPID #### [facility] [address] [place] [address] Dr. Karla Lagos LIPID PROFILEon 08-18-2022 CHOL-HDL RATIO NORM SEE BELOW Normal [facility] Comment on above: Result Comment: 3.3 - 4.4 LOW RISK 4.4 - 7.1 AVERAGE RISK 7.1 - 11.0 MODERATE RISK >11.0 HIGH RISK Performed By: #### P HOS, URIC, MG, CMP, DBIL, LIPID #### [facility] [address] [place] [address] Dr. Karla Lagos Cholesterol [Mass/Vol] 137 mg/dL Normal <=200 [facility] Comment on above: Performed By: #### P HOS, URIC, MG, CMP, DBIL, LIPID #### [facility] [address] [address] [address] Karla Lagos Cholesterol in HDL [Mass/Vol] 45 mg/dL Normal 40-60 [facility] Comment on above: Performed By: #### P HOS, URIC, MG, CMP, DBIL, LIPID #### [facility] [address] [place] [address] Dr. Karla Lagos Cholesterol in LDL [Mass/Vol] 59.0 mg/dL Normal [facility] Comment on above: Performed By: #### P HOS, URIC, MG, CMP, DBIL, LIPID #### [facility] [address] [place] [address] Dr. Karla Lagos Cholesterol.total/C holesterol in HDL [Mass ratio] 3.0 {ratio} Normal [facility] Comment on above: Performed By: #### P HOS, URIC, MG, CMP, DBIL, LIPID #### [facility] [address] [place] [address] Dr. Karla Lagos HDL NORMAL > or = 60 mg/dl - LO W CARDIOVASCULAR RISK <40 mg/dl - HIGH CARDIOVASCULAR RISK Normal [facility] Comment on above: Performed By: #### P HOS, URIC, MG, CMP, DBIL, LIPID #### [facility] [address] [address] [address] Karla Lagos LDL CALC NORMAL SEE BELOW Normal [facility] Comment on above: Result Comment: <100 mg/dl OPTIMAL 100 - 129 mg/dl NEAR OR ABOVE OPTIMAL 130 - 159 mg/dl BORDERLINE HIGH 160 - 189 mg/dl HIGH >190 mg/dl VERY HIGH Performed By: #### P HOS, URIC, MG, CMP, DBIL, LIPID #### [facility] [address] [address] [address] Karla Lagos Triglyceride [Mass/Vol] 165 mg/dL Critically high <=150 [facility] Comment on above: Performed By: #### P HOS, URIC, MG, CMP, DBIL, LIPID #### [facility] [address] [address] [address] Karla Lagos VLDL CALC 33.0 mg/dL Normal [facility] Comment on above: Performed By: #### P HOS, URIC, MG, CMP, DBIL, LIPID #### [facility] [address] [address] [address] Karla Lagos MAGNESIUMon 08-18-2022 Magnesium [Mass/Vol] 1.7 mg/dL Critically low 1.8-2.4 [facility] Comment on above: Performed By: #### P HOS, URIC, MG, CMP, DBIL, LIPID #### [facility] [address] [address] [address] Karla Lagos Orders Onlyon 08-18-2022 Orders Only [id number] Vishal Duke 1960 Date Provider Department Center 08/18/2022 BOBBY FARR [facility] [address]A [address] Fl Family History Problem Relation Age of Onset Alzheimer's disease Mother Coronary artery disease Father Family Status - Relation Status Age at Mother Father Normal [facility] Orders Only [id number] Vishal Duke 1960 M Date Provider Department Center 08/18/2022 1971-FARRUKH BLANCAS TXP None Family History Problem Relation Age of Onset Alzheimer's disease Mother Coronary artery disease Father Family Status - Relation Status Age at Mother Father Normal [facility] PHOSPHORUSon 08-18-2022 Phosphate [Mass/Vol] 3.6 mg/dL Normal 2.6-4.7 [facility] Comment on above: Performed By: #### P HOS, URIC, MG, CMP, DBIL, LIPID #### [facility] [address] [address] [address] Karla Lagos PROF 14(COMP METB)on 023 Albumin [Mass/Vol] 4.0 g/dL Normal 3.4-5.0 [facility] Comment on above: Performed By: #### P HOS, URIC, MG, CMP, DBIL, LIPID #### [facility] [address] [place] [address] Dr. Karla Lagos Albumin/Globulin [Mass ratio] 1.1 {ratio} Normal [facility] Comment on above: Performed By: #### P HOS, URIC, MG, CMP, DBIL, LIPID #### [facility] [address] [address] [address] Karla Lagos ALP [Catalytic activity/Vol] 96 U/L Normal 46-116 [facility] Comment on above: Performed By: #### P HOS, URIC, MG, CMP, DBIL, LIPID #### [facility] [address] [address] [address] Karla Lagos ALT [Catalytic activity/Vol] 42 U/L Normal 16-63 [facility] Comment on above: Performed By: #### P HOS, URIC, MG, CMP, DBIL, LIPID #### [facility] [address] [place] [address] Dr. Karla Lagos Anion gap [Moles/Vol] 12.9 mmol/L Normal [facility] Comment on above: Performed By: #### P HOS, URIC, MG, CMP, DBIL, LIPID #### [facility] [address] [place], [place] [id number] Dr. Karla Lagos AST [Catalytic activity/Vol] 22 U/L Normal 15-37 [facility] Comment on above: Performed By: #### P HOS, URIC, MG, CMP, DBIL, LIPID #### [facility] [address] [place] [address] Dr. Karla Lagos Bilirubin [Mass/Vol] 0.7 mg/dL Normal 0.2-1.0 [facility] Comment on above: Performed By: #### P HOS, URIC, MG, CMP, DBIL, LIPID #### [facility] [address] [place] [address] Dr. Karla Lagos Calcium [Mass/Vol] 9.4 mg/dL Normal 8.5-10.1 [facility] Comment on above: Performed By: #### P HOS, URIC, MG, CMP, DBIL, LIPID #### [facility] [address] [place] [address] Dr. Karla Lagos Chloride [Moles/Vol] 103 mmol/L Normal 98-107 [facility] Comment on above: Performed By: #### P HOS, URIC, MG, CMP, DBIL, LIPID #### [facility] [address] [place] [address] Dr. Karla Lagos CO2 [Moles/Vol] 27.8 mmol/L Normal 21.0-32.0 [facility] Comment on above: Performed By: #### P HOS, URIC, MG, CMP, DBIL, LIPID #### [facility] [address] [place] [address] Dr. Karla Lagos Creatinine [Mass/Vol] 1.28 mg/dL Normal 0.70-1.30 [facility] Comment on above: Performed By: #### P HOS, URIC, MG, CMP, DBIL, LIPID #### [facility] [address] [place] [address] Dr. Karla Lagos EGFR-AF FILIPINO >60 Normal >=60 [facility] Comment on above: Performed By: #### P HOS, URIC, MG, CMP, DBIL, LIPID #### [facility] [address] [place], [place] [id number] Dr. Karla Lagos EGFR-NON AF FILIPINO 57 mL/min/1.73m2 Critically low >=60 [facility] Comment on above: Performed By: #### P HOS, URIC, MG, CMP, DBIL, LIPID #### [facility] [address] [place] [address] Dr. Karla Lagos Globulin (S) [Mass/Vol] 3.5 g/dL Normal [facility] Comment on above: Performed By: #### P HOS, URIC, MG, CMP, DBIL, LIPID #### [facility] [address] [place] [address] Dr. Karla Lagos Glucose [Mass/Vol] 123 mg/dL Critically high 74-106 [facility] Comment on above: Performed By: #### P HOS, URIC, MG, CMP, DBIL, LIPID #### [facility] [address] [place] [address] Dr. Karla Lagos Potassium [Moles/Vol] 4.7 mmol/L Normal 3.5-5.1 [facility] Comment on above: Performed By: #### P HOS, URIC, MG, CMP, DBIL, LIPID #### [facility] [address] [place] [address] Dr. Karla Lagos Protein [Mass/Vol] 7.5 g/dL Normal 6.4-8.2 [facility] Comment on above: Performed By: #### P HOS, URIC, MG, CMP, DBIL, LIPID #### [facility] [address] [place] [address] Dr. Karla Lagos Sodium [Moles/Vol] 139 mmol/L Normal 136-145 [facility] Comment on above: Performed By: #### P HOS, URIC, MG, CMP, DBIL, LIPID #### [facility] [address] [place] [address] Dr. Karla Lagos Urea nitrogen [Mass/Vol] 22.0 mg/dL Critically high 7.0-18.0 [facility] Comment on above: Performed By: #### P HOS, URIC, MG, CMP, DBIL, LIPID #### [facility] [address] [address] [address] Karla Lagos Urea nitrogen/Creatinine [Mass ratio] 17.2 mg/mg Normal [facility] Comment on above: Performed By: #### P HOS, URIC, MG, CMP, DBIL, LIPID #### [facility] [address] [address] [address] Karla Lagos URIC ACID SERUMon 08-18-2022 Urate [Mass/Vol] 4.8 mg/dL Normal 3.5-7.2 [facility] Comment on above: Performed By: #### P HOS, URIC, MG, CMP, DBIL, LIPID #### [facility] [address] [address] [address] Karla Lagos 29on 07-29-2022 29 Addended by: ROSA M BREWER on: 08/03/2022 02:03 PM Modules accepted: Orders Normal [facility] Office Visiton 07-29-2022 Follow-up visit [id number] Vishal Duke 1960 M Date Provider Department Center 07/29/2022 259-IT-OTNCK, KELVIN CCC PULM Comprehensiv Family History Problem Relation Age of Onset Alzheimer's disease Mother Coronary artery disease Father Family Status - Relation Status Age at Mother Father Level of Service:26088 SC OFFICE/OUTPATIENT ESTABLISHED MOD MDM 30-39 MIN (GC) Reason for Visit and Comments: Shortness of Breath [372249] - Pt reports being SOB and coughing since he had covid two years ago. Normal [facility] BK VIRUS PCR QUANTon 023 BKV DNA QUANT PCR PLASMA Negative Normal Negative [facility] Comment on above: Result Comment: No B K DNA detected. . The linear range of the assay is 22 - 100,000,000 IU/mL. Performed By: #### B KVIRUS #### [facility] [address] [place] [address] Dr. Karla Lagos Log10 BKV DNA Plasma Normal [facility] Comment on above: Performed By: #### B KVIRUS #### [facility] [address] [place] [address] Dr. Karla Lagos FK506 (TACROLIMUS) WHOLE BLO ODon 07-21-2022 Tacrolimus (FK506), Blood 6.1 ng/mL Normal 2.0-20.0 [facility] Comment on above: Result Comment: Trou gh (immediately following transplant) 15.0 . Trough (steady state, 2 weeks or more after transplant): 3.0 - 8.0 . Performed by LC-MS/MS technology. Performed By: #### P HOS, URIC, MG, CMP, DBIL, LIPID #### [facility] [address] [place] [address] Dr. Karla Lagos BILIRUBIN CONJUGATED (DIRECT )on 07-19-2022 BILI, CONJUGATED 0.2 mg/dL Normal 0.0-0.2 [facility] Comment on above: Performed By: #### P HOS, URIC, MG, CMP, DBIL, LIPID #### [facility] [address] [place] [address] Dr. Karla Lagos CBC AUTO DIFFon 07-19-2022 BASO # 0.0 103/ul Normal 0.0-0.1 [facility] Comment on above: Performed By: #### P HOS, URIC, MG, CMP, DBIL, LIPID #### [facility] [address] [place] [address] Dr. Karla Lagos Basophils/100 WBC (Bld) 0.4 % Normal 0.2-2.0 [facility] Comment on above: Performed By: #### P HOS, URIC, MG, CMP, DBIL, LIPID #### [facility] [address] [place] [address] Dr. Karla Lagos EO # 0.1 103/ul Normal 0.0-0.7 [facility] Comment on above: Performed By: #### P HOS, URIC, MG, CMP, DBIL, LIPID #### [facility] [address] [place] [address] Dr. Karla Lagos Eosinophils/100 WBC (Bld) 1.6 % Normal 0.9-7.0 [facility] Comment on above: Performed By: #### P HOS, URIC, MG, CMP, DBIL, LIPID #### [facility] [address] [place] [address] Dr. Karla Lagos Erythrocyte distribution width (RBC) [Ratio] 14.2 % Normal 11.0-15.0 [facility] Comment on above: Performed By: #### P HOS, URIC, MG, CMP, DBIL, LIPID #### [facility] [address] [place] [address] Dr. Karla Lagos Hematocrit (Bld) [Volume fraction] 49.8 % Normal 42.0-54.0 [facility] Comment on above: Performed By: #### P HOS, URIC, MG, CMP, DBIL, LIPID #### [facility] [address] [place] [address] Dr. Karla Lagos Hemoglobin (Bld) [Mass/Vol] 16.6 g/dL Normal 14.0-18.0 [facility] Comment on above: Performed By: #### P HOS, URIC, MG, CMP, DBIL, LIPID #### [facility] [address] [place] [address] Dr. Karla Lagos IG # 0.03 10e3/ul Normal 0.00-0.03 [facility] Comment on above: Performed By: #### P HOS, URIC, MG, CMP, DBIL, LIPID #### [facility] [address] [place] [address] Dr. Karla Lagos IG % 0.4 % Normal 0.0-0.5 [facility] Comment on above: Performed By: #### P HOS, URIC, MG, CMP, DBIL, LIPID #### [facility] [address] [place] [address] Dr. Karla Lagos LYMPH # 1.1 103/ul Critically low 1.2-3.[address] [facility] Comment on above: Performed By: #### P HOS, URIC, MG, CMP, DBIL, LIPID #### [facility] [address] [place] [address] Dr. Karla Lagos Lymphocytes/100 WBC (Bld) 14.9 % Critically low 20.5-60.0 [facility] Comment on above: Performed By: #### P HOS, URIC, MG, CMP, DBIL, LIPID #### [facility] [address] [place] [address] Dr. Karla Lagos MANUAL DIFF REQ NO Normal [facility] Comment on above: Performed By: #### P HOS, URIC, MG, CMP, DBIL, LIPID #### [facility] [address] [place] [address] Dr. Karla Lagos MCH (RBC) [Entitic mass] 30.4 pg Normal 25.9-34.0 [facility] Comment on above: Performed By: #### P HOS, URIC, MG, CMP, DBIL, LIPID #### [facility] [address] [place] [address] Dr. Karla Lagos MCHC (RBC) [Mass/Vol] 33.3 g/dL Normal 29.9-35.2 [facility] Comment on above: Performed By: #### P HOS, URIC, MG, CMP, DBIL, LIPID #### [facility] [address] [place] [address] Dr. Karla Lagos MCV (RBC) [Entitic vol] 91.2 fL Normal 80.0-94.0 [facility] Comment on above: Performed By: #### P HOS, URIC, MG, CMP, DBIL, LIPID #### [facility] [address] [place] [address] Dr. Karla Lagos MONO # 0.7 103/ul Normal 0.3-0.8 [facility] Comment on above: Performed By: #### P HOS, URIC, MG, CMP, DBIL, LIPID #### [facility] [address] [place] [address] Dr. Karla Lagos Monocytes/100 WBC (Bld) 10.3 % Normal 1.7-12.0 [facility] Comment on above: Performed By: #### P HOS, URIC, MG, CMP, DBIL, LIPID #### [facility] [address] [place] [address] Dr. Karla Lagos NEUT # 5.1 103/ul Normal 1.4-6.5 [facility] Comment on above: Performed By: #### P HOS, URIC, MG, CMP, DBIL, LIPID #### [facility] [address] [place] [address] Dr. Karla Lagos Neutrophils/100 WBC (Bld) 72.4 % Normal 43.0-75.0 [facility] Comment on above: Performed By: #### P HOS, URIC, MG, CMP, DBIL, LIPID #### [facility] [address] [place] [address] Dr. Karla Lagos Platelet mean volume (Bld) [Entitic vol] 10.4 fL Normal 9.5-13.5 [facility] Comment on above: Performed By: #### P HOS, URIC, MG, CMP, DBIL, LIPID #### [facility] [address] [place] [address] Dr. Karla Lagos PLT 248 103/ul Normal 150-450 [facility] Comment on above: Performed By: #### P HOS, URIC, MG, CMP, DBIL, LIPID #### [facility] [address] [place] [address] Dr. Kalra Lagos RBC 5.46 106/ul Normal 4.70-6.10 [facility] Comment on above: Performed By: #### P HOS, URIC, MG, CMP, DBIL, LIPID #### [facility] [address] [place] [address] Dr. Karla Lagos WBC 7.1 103/ul Normal 4.0-11.0 [facility] Comment on above: Performed By: #### P HOS, URIC, MG, CMP, DBIL, LIPID #### [facility] [address] [place] [address] Dr. Karla Lagos LIPID PROFILEon 07-19-2022 CHOL-HDL RATIO NORM SEE BELOW Normal [facility] Comment on above: Result Comment: 3.3 - 4.4 LOW RISK 4.4 - 7.1 AVERAGE RISK 7.1 - 11.0 MODERATE RISK >11.0 HIGH RISK Performed By: #### P HOS, URIC, MG, CMP, DBIL, LIPID #### [facility] [address] [place] [address] Dr. Karla Lagos Cholesterol [Mass/Vol] 130 mg/dL Normal <=200 [facility] Comment on above: Performed By: #### P HOS, URIC, MG, CMP, DBIL, LIPID #### [facility] [address] [address] [address] Karla Lagos Cholesterol in HDL [Mass/Vol] 43 mg/dL Normal 40-60 [facility] Comment on above: Performed By: #### P HOS, URIC, MG, CMP, DBIL, LIPID #### [facility] [address] [address] [address] Karla Lagos Cholesterol in LDL [Mass/Vol] 61.8 mg/dL Normal [facility] Comment on above: Performed By: #### P HOS, URIC, MG, CMP, DBIL, LIPID #### [facility] [address] [place] [address] Dr. Karla Lagos Cholesterol.total/C holesterol in HDL [Mass ratio] 3.0 {ratio} Normal [facility] Comment on above: Performed By: #### P HOS, URIC, MG, CMP, DBIL, LIPID #### [facility] [address] [address] [address] Karla Lagos HDL NORMAL > or = 60 mg/dl - LO W CARDIOVASCULAR RISK <40 mg/dl - HIGH CARDIOVASCULAR RISK Normal [facility] Comment on above: Performed By: #### P HOS, URIC, MG, CMP, DBIL, LIPID #### [facility] [address] [address] [address] Karla Lagos LDL CALC NORMAL SEE BELOW Normal [facility] Comment on above: Result Comment: <100 mg/dl OPTIMAL 100 - 129 mg/dl NEAR OR ABOVE OPTIMAL 130 - 159 mg/dl BORDERLINE HIGH 160 - 189 mg/dl HIGH >190 mg/dl VERY HIGH Performed By: #### P HOS, URIC, MG, CMP, DBIL, LIPID #### [facility] [address] [address] [address] Karla Lagos Triglyceride [Mass/Vol] 126 mg/dL Normal <=150 [facility] Comment on above: Performed By: #### P HOS, URIC, MG, CMP, DBIL, LIPID #### [facility] [address] [address] [address] Karla Lagos VLDL CALC 25.2 mg/dL Normal [facility] Comment on above: Performed By: #### P HOS, URIC, MG, CMP, DBIL, LIPID #### [facility] [address] [address] [address] Karla Lagos MAGNESIUMon 07-19-2022 Magnesium [Mass/Vol] 1.7 mg/dL Critically low 1.8-2.4 [facility] Comment on above: Performed By: #### P HOS, URIC, MG, CMP, DBIL, LIPID #### [facility] [address] [address] [address] Karla Lagos PHOSPHORUSon 07-19-2022 Phosphate [Mass/Vol] 3.1 mg/dL Normal 2.6-4.7 [facility] Comment on above: Performed By: #### P HOS, URIC, MG, CMP, DBIL, LIPID #### [facility] [address] [place] [address] Dr. Karla Lagos PROF 14(COMP METB)on 023 Albumin [Mass/Vol] 4.0 g/dL Normal 3.4-5.0 [facility] Comment on above: Performed By: #### P HOS, URIC, MG, CMP, DBIL, LIPID #### [facility] [address] [place] [address] Dr. Karla Lagos Albumin/Globulin [Mass ratio] 1.3 {ratio} Normal [facility] Comment on above: Performed By: #### P HOS, URIC, MG, CMP, DBIL, LIPID #### [facility] [address] [place] [address] Dr. Karla Lagos ALP [Catalytic activity/Vol] 79 U/L Normal 46-116 [facility] Comment on above: Performed By: #### P HOS, URIC, MG, CMP, DBIL, LIPID #### [facility] [address] [place] [address] Dr. Karla Lagos ALT [Catalytic activity/Vol] 40 U/L Normal 16-63 [facility] Comment on above: Performed By: #### P HOS, URIC, MG, CMP, DBIL, LIPID #### [facility] [address] [address] [address] Karla Lagos Anion gap [Moles/Vol] 12.8 mmol/L Normal [facility] Comment on above: Performed By: #### P HOS, URIC, MG, CMP, DBIL, LIPID #### [facility] [address] [place] [address] Dr. Karla Lagos AST [Catalytic activity/Vol] 24 U/L Normal 15-37 [facility] Comment on above: Performed By: #### P HOS, URIC, MG, CMP, DBIL, LIPID #### [facility] [address] [place] [address] Dr. Karla Lagos Bilirubin [Mass/Vol] 0.7 mg/dL Normal 0.2-1.0 [facility] Comment on above: Performed By: #### P HOS, URIC, MG, CMP, DBIL, LIPID #### [facility] [address] [place] [address] Dr. Karla Lagos Calcium [Mass/Vol] 9.3 mg/dL Normal 8.5-10.1 [facility] Comment on above: Performed By: #### P HOS, URIC, MG, CMP, DBIL, LIPID #### [facility] [address] [place] [address] Dr. Karla Lagos Chloride [Moles/Vol] 105 mmol/L Normal 98-107 [facility] Comment on above: Performed By: #### P HOS, URIC, MG, CMP, DBIL, LIPID #### [facility] [address] [place] [address] Dr. Karla Lagos CO2 [Moles/Vol] 28.4 mmol/L Normal 21.0-32.0 [facility] Comment on above: Performed By: #### P HOS, URIC, MG, CMP, DBIL, LIPID #### [facility] [address] [place] [address] Dr. Karla Lagos Creatinine [Mass/Vol] 1.23 mg/dL Normal 0.70-1.30 [facility] Comment on above: Performed By: #### P HOS, URIC, MG, CMP, DBIL, LIPID #### [facility] [address] [place] [address] Dr. Karla Lagos EGFR-AF FILIPINO >60 Normal >=60 [facility] Comment on above: Performed By: #### P HOS, URIC, MG, CMP, DBIL, LIPID #### [facility] [address] [place] [address] Dr. Karla Lagos EGFR-NON AF FILIPINO =60 Normal >=60 [facility] Comment on above: Performed By: #### P HOS, URIC, MG, CMP, DBIL, LIPID #### [facility] [address] [place] [address] Dr. Karla Lagos Globulin (S) [Mass/Vol] 3.1 g/dL Normal [facility] Comment on above: Performed By: #### P HOS, URIC, MG, CMP, DBIL, LIPID #### [facility] [address] [place] [address] Dr. Karla Lagos Glucose [Mass/Vol] 114 mg/dL Critically high 74-106 [facility] Comment on above: Performed By: #### P HOS, URIC, MG, CMP, DBIL, LIPID #### [facility] [address] [place] [address] Dr. Karla Lagos Potassium [Moles/Vol] 4.2 mmol/L Normal 3.5-5.1 [facility] Comment on above: Performed By: #### P HOS, URIC, MG, CMP, DBIL, LIPID #### [facility] [address] [place] [address] Dr. Karla Lagos Protein [Mass/Vol] 7.1 g/dL Normal 6.4-8.2 [facility] Comment on above: Performed By: #### P HOS, URIC, MG, CMP, DBIL, LIPID #### [facility] [address] [place] [address] Dr. Karla Lagos Sodium [Moles/Vol] 142 mmol/L Normal 136-145 [facility] Comment on above: Performed By: #### P HOS, URIC, MG, CMP, DBIL, LIPID #### [facility] [address] [place] [address] Dr. Karla Lagos Urea nitrogen [Mass/Vol] 15.0 mg/dL Normal 7.0-18.0 [facility] Comment on above: Performed By: #### P HOS, URIC, MG, CMP, DBIL, LIPID #### [facility] [address] [place] [address] Dr. Karla Lagos Urea nitrogen/Creatinine [Mass ratio] 12.2 mg/mg Normal [facility] Comment on above: Performed By: #### P HOS, URIC, MG, CMP, DBIL, LIPID #### [facility] [address] [place] [address] Dr. Karla Lagos URIC ACID SERUMon 07-19-2022 Urate [Mass/Vol] 5.1 mg/dL Normal 3.5-7.2 [facility] Comment on above: Performed By: #### P HOS, URIC, MG, CMP, DBIL, LIPID #### [facility] [address] [place] [address] Dr. Karla Lagos BILIRUBIN, DIRECTon 06-17-19 Magnesium [Mass/Vol] 0.2 mg/dL Normal 0-0.2 [facility] Comment on above: Performed By: #### L [id number] #### [facility] ([facility]) [address] [place] [address] BK VIRUS, PLASMA, QUANTITATI VEon 06-16-2022 BK QUANTITATION Not detected Normal [facility] Comment on above: Result Comment: Meth od: BK virus was measured by quantitative polymerase chain reaction using a fluorescent hydrolysis probe targeting the polyomavirus BK INSTRUCTIONAL FACILITATOR-1 gene. The lower limit of quantitation of the assay is 500 copies of BK genome per milliliter of plasma or urine, and any detectable BK DNA below that level is reported as: Detected, <500 copies/ml. Serial BK virus measurement can be used to monitor disease activity. (Reference: Kenneth ronl. J CLIN MICRO 2004; 42:3216-1898). This test was developed and its performance characteristics determined by the [facility]. It has not been approved by the US Food and Drug Administration. However, such approval is not required for clinical implementation, and test results have been shown to be clinically useful. This laboratory is CAP accredited and CLIA certified to perform high complexity testing. Performed By: #### L [id number] #### [facility] ([facility]) [address] [place] [address] BK QUANTITATION LOG Not detected [facility] on above: Performed By: #### L [id number] #### [facility] ([facility]) [address] [place] [address] CBC WITH AUTO DIFFERENTIALon 06-16-2022 Basophils (Bld) [#/Vol] 0.07 10*3/uL Normal 0.00-0.20 [facility] Comment on above: Performed By: #### L [id number] #### [facility] ([facility]) [address] [place] [address] Basophils/100 WBC (Bld) 1.0 % Normal 0.0-1.0 [facility] Comment on above: Performed By: #### L [id number] #### [facility] ([facility]) [address] [place] [address] Eosinophils (Bld) [#/Vol] 0.13 10*3/uL Normal 0.00-0.50 [facility] Comment on above: Performed By: #### L [id number] #### [facility] ([facility]) [address] [place] [address] Eosinophils/100 WBC (Bld) 1.9 % Normal 0.0-6.0 [facility] Comment on above: Performed By: #### L [id number] #### [facility] ([facility]) [address] [place] [address] Erythrocyte distribution width (RBC) [Ratio] 14.4 % Normal 11.5-15.0 [facility] Comment on above: Performed By: #### L [id number] #### [facility] [address] [place] [address] ERYTHROCYTE MEAN CORPUSCULAR HEMOGLOBIN CONCENTRATION (G/DL) BY AUTOMATED 32.7 g/dL Normal 32.0-35.0 [facility] Comment on above: Performed By: #### L [id number] #### [facility] ([facility]) [address] [place] [address] Hematocrit (Bld) [Volume fraction] 51.3 % Normal 39.0-55.0 [facility] Comment on above: Performed By: #### L [id number] #### [facility] ([facility]) [address] [place] [address] Hemoglobin (Bld) [Mass/Vol] 16.8 g/dL Normal 13.0-17.0 [facility] Comment on above: Performed By: #### L [id number] #### [facility] ([facility]) [address] [place] [address] Immature granulocytes (Bld) [#/Vol] 0.04 10*3/uL Normal 0.00-0.20 [facility] Comment on above: Performed By: #### L [id number] #### [facility] ([facility]) [address] [place] [address] Immature granulocytes/100 WBC (Bld) 0.6 % Normal 0.0-1.0 [facility] Comment on above: Performed By: #### L [id number] #### [facility] ([facility]) [address] [place] [address] Lymphocytes (Bld) [#/Vol] 1.20 10*3/uL Normal 1.20-4.00 [facility] Comment on above: Performed By: #### L [id number] #### [facility] ([facility]) [address] [place] [address] Lymphocytes/100 WBC (Bld) 17.4 % Low 20.0-45.0 [facility] Comment on above: Performed By: #### L [id number] #### [facility] ([facility]) [address] [place] [address] MCH (RBC) [Entitic mass] 30.3 pg Normal 27.0-33.0 [facility] Comment on above: Performed By: #### L [id number] #### [facility] ([facility]) [address] [place] [address] MCV (RBC) [Entitic vol] 92.6 fL Normal 82.0-98.0 [facility] Comment on above: Performed By: #### L [id number] #### [facility] ([facility]) [address] [place] [address] Monocytes (Bld) [#/Vol] 0.71 10*3/uL Normal 0.10-1.00 [facility] Comment on above: Performed By: #### L [id number] #### [facility] ([facility]) [address] [place] [address] Monocytes/100 WBC (Bld) 10.3 % Normal 5.0-12.0 [facility] Comment on above: Performed By: #### L [id number] #### [facility] ([facility]) [address] [place] [address] Neutrophils (Bld) [#/Vol] 4.73 10*3/uL Normal 1.60-7.60 [facility] Comment on above: Performed By: #### L [id number] #### [facility] ([facility]) [address] [place] [address] Neutrophils/100 WBC (Bld) 68.8 % Normal 40.0-72.0 [facility] Comment on above: Performed By: #### L [id number] #### [facility] ([facility]) [address] [place] [address] NRBC (PER 100 WBCS) BY AUTOMATED COUNT 0.0 % Normal 0.0-0.0 [facility] Comment on above: Performed By: #### L [id number] #### [facility] ([facility]) [address] [place] [address] PLATELETS (10*3/UL) IN BLOOD AUTOMATED COUNT 264 10*3/uL Normal 150-400 [facility] Comment on above: Performed By: #### L [id number] #### [facility] ([facility]) [address] [place] [address] RBC (Bld) [#/Vol] 5.54 10*6/uL Normal 4.20-5.70 [facility] Comment on above: Performed By: #### L [id number] #### [facility] ([facility]) [address] [place] [address] WBC (Bld) [#/Vol] 6.88 10*3/uL Normal 4.00-10.60 [facility] Comment on above: Performed By: #### L [id number] #### [facility] ([facility]) [address] [place] [address] COMPREHENSIVE METABOLIC PANE Nitin 06-16-2022 Albumin [Mass/Vol] 4.6 g/dL Normal 3.5-5.7 [facility] Comment on above: Performed By: #### L [id number] #### [facility] ([facility]) [address] [place] [address] ALP [Catalytic activity/Vol] 77 U/L Normal 34-104 [facility] Comment on above: Performed By: #### L [id number] #### [facility] ([facility]) [address] [place] [address] ALT [Catalytic activity/Vol] 32 U/L Normal 7-52 [facility] Comment on above: Performed By: #### L [id number] #### [facility] [address] [place] [address] Anion gap [Moles/Vol] 12 mmol/L Normal 7-20 [facility] Comment on above: Performed By: #### L [id number] #### [facility] ([facility]) [address] [place] [address] AST [Catalytic activity/Vol] 24 U/L Normal 13-39 [facility] Comment on above: Performed By: #### L [id number] #### [facility] ([facility]) [address] [place] [address] Bilirubin [Mass/Vol] 0.9 mg/dL Normal 0.3-1.0 [facility] Comment on above: Performed By: #### L [id number] #### [facility] ([facility]) [address] [place] [address] Calcium [Mass/Vol] 9.7 mg/dL Normal 8.6-10.3 [facility] Comment on above: Performed By: #### L [id number] #### [facility] ([facility]) [address] [place] [address] Chloride [Moles/Vol] 105 mmol/L Normal 98-107 [facility] Comment on above: Performed By: #### L [id number] #### [facility] ([facility]) [address] [place] [address] CO2 [Moles/Vol] 28 mmol/L Normal 21-31 [facility] Comment on above: Performed By: #### L [id number] #### [facility] [address] [place] [address] Creatinine [Mass/Vol] 1.29 mg/dL Normal 0.70-1.30 [facility] Comment on above: Performed By: #### L [id number] #### [facility] [address] [place] [address] GLOMERULAR FILTRATION RATE ML/MIN/1.73 SQ M.PREDICTED 63.1 mL/min/1.73m*2 Normal >60.0 [facility] Comment on above: Result Comment: The [facility]???s estimated glomerular filtration rate (eGFR) will no longer include consideration of race in its calculation. The National Kidney Foundation???s eGFR Task Force developed new recommendations for the estimation of the glomerular filtration rate in the [place] They recommend immediate implementation of the new equation refit without the race variable in all laboratories because the calculation does not include race. In addition to not including race in the calculation and reporting, it included diversity in its development, and has acceptable performance characteristics and potential consequences that do not disproportionately affect any one group of individuals. Performed By: #### L [id number] #### [facility] ([facility]) [address] [place] [address] Glucose [Mass/Vol] 105 mg/dL High 70-100 [facility] Comment on above: Performed By: #### L [id number] #### [facility] ([facility]) [address] [place] [address] Potassium [Moles/Vol] 4.7 mmol/L Normal 3.5-5.1 [facility] Comment on above: Performed By: #### L [id number] #### [facility] ([facility]) [address] [address] Protein [Mass/Vol] 6.7 g/dL Normal 6.0-8.3 [facility] Comment on above: Performed By: #### L [id number] #### [facility] ([facility]) [address] [facility] [place] [address] Sodium [Moles/Vol] 140 mmol/L Normal 136-145 [facility] Comment on above: Performed By: #### L [id number] #### [facility] ([facility]) [address] [place] [address] Urea nitrogen [Mass/Vol] 18 mg/dL Normal 7-25 [facility] Comment on above: Performed By: #### L [id number] #### [facility] ([facility]) [address] [facility] [place] [address] UREA NITROGEN/CREATININE (MASS RATIO) IN SER/PLAS 14.0 Normal [facility] Comment on above: Performed By: #### L [id number] #### [facility] ([facility]) [address] [place] [address] Follow-Upon 06-16-2022 Follow-Up [id number] Vishal Duke 1960 M Date Provider Department Center 06/16/2022 BOBBY FARR TXHumberto None Family History Problem Relation Age of Onset Alzheimer's disease Mother Coronary artery disease Father Family Status - Relation Status Age at Mother Father Level of Service:[id number] SC OFFICE/OUTPT VISIT,PROCEDURE ONLY Reason for Visit and Comments: Kidney Follow-up [] Normal [facility] LIPID PANELon 06-16-2022 CHOL/HDL 3.2 mg/dL Normal [facility] Comment on above: Performed By: #### L [id number] ####[facility] ([facility] [facility])[address] [place] [address] Cholesterol [Mass/Vol] 137 mg/dL Normal 120-200 [facility] Comment on above: Performed By: #### L [id number] ####[facility] ([employer])[address] [place] [address] Magnesium [Mass/Vol] 144 mg/dL Normal 40-149 [facility] Comment on above: Result Comment: TRIG LYCERIDE REFERENCE RANGE: 20 YEARS AND OLDER CARDIOVASCULAR RISK LESS THAN 150 mg/dL LOW RISK 150 TO 199 mg/dL BORDERLINE RISK 200 mg/dL AND GREATER HIGH RISK Performed By: #### L [id number] ####[facility] ([employer])[address] [place] [address] Magnesium [Mass/Vol] 65 mg/dL Normal 0-160 [facility] Comment on above: Performed By: #### L AB18 ####[facility] ([employer])[address] [place] [address] Magnesium [Mass/Vol] 43 mg/dL Normal 23-92 [facility] Comment on above: Performed By: #### L AB18 ####[facility] ([facility]AKER)[address] [place] [address] NON HDL CHOL. (LDL+VLDL) 94 Normal [facility] Comment on above: Performed By: #### L AB18 ####[facility] ([facility]AKER)[address] [place] [address] TOTAL VLDL-C 29 mg/dL Normal 0-40 [facility] Comment on above: Performed By: #### L AB18 ####[facility] (BEAKER)[address] [place] [address] Labon 06-16-2022 Lab [id number] Vishal Duke 1960 M Date Provider Department [place] 06/16/2022 [id number] DRAW STATION KXT Draw [facility] Family History Problem Relation Age of Onset Alzheimer's disease Mother Coronary artery disease Father Family Status - Relation Status Age at Mother Father Normal [facility] MAGNESIUMon 06-16-2022 Magnesium [Mass/Vol] 1.8 mg/dL Low 1.9-2.7 [facility] Comment on above: Performed By: #### L AB20 #### [facility] ([facility]) [address] [place] [address] PHOSPHORUSon 06-16-2022 Magnesium [Mass/Vol] 3.4 mg/dL Normal 2.5-5.0 [facility] Comment on above: Performed By: #### L AB17 #### [facility] ([facility]) [address] [place] [address] TACROLIMUS LEVELon Tacrolimus (Bld) [Mass/Vol] 7.4 ng/mL Normal 5.0-20.0 [facility] Comment on above: Result Comment: The [employer] Tacrolimus assay is a delayed one-step immunoassay for the quantitative determination of tacrolimus in human whole blood using the chemiluminescent microparticle immunoassay (CMIA) technology with flexible assay protocols, referred to as Chemiflex. Performed By: #### L AB20 #### [facility] ([facility]) [address] [place] [address] URIC ACIDon 06-16-2022 Magnesium [Mass/Vol] 5.5 mg/dL Normal 4.4-7.6 [facility] Comment on above: Performed By: #### L AB20 #### [facility] ([facility]) [place] [address] FK506 (TACROLIMUS) WHOLE BLO ODon 06-04-2022 Tacrolimus (FK506), Blood 5.1 ng/mL Normal 2.0-20.0 [facility] Comment on above: Result Comment: Trou gh (immediately following transplant) 15.0 . Trough (steady state, 2 weeks or more after transplant): 3.0 - 8.0 . Performed by LC-MS/MS technology. Performed By: #### P HOS, URIC, MG, CMP, DBIL, LIPID #### [facility] [address] [place] [address] Dr. Karla Lagos BK VIRUS PCR QUANTon 023 BKV DNA QUANT PCR PLASMA Negative Normal Negative [facility] Comment on above: Result Comment: No B K DNA detected. . The linear range of the assay is 22 - 100,000,000 IU/mL. Performed By: #### P HOS, URIC, MG, CMP, DBIL, LIPID #### [facility] [address] [place] [address] Dr. Karla Lagos Log10 BKV DNA Plasma Normal [facility] Comment on above: Performed By: #### P HOS, URIC, MG, CMP, DBIL, LIPID #### [facility] [address] [place] [address] Dr. Karla Lagos BILIRUBIN CONJUGATED (DIRECT )on 06-01-2022 BILI, CONJUGATED 0.1 mg/dL Normal 0.0-0.2 [facility] Comment on above: Performed By: #### P HOS, URIC, MG, CMP, DBIL, LIPID #### [facility] [address] [place] [address] Dr. Karla Lagos CBC AUTO DIFFon 06-01-2022 BASO # 0.1 103/ul Normal 0.0-0.1 [facility] Comment on above: Performed By: #### P HOS, URIC, MG, CMP, DBIL, LIPID #### [facility] [address] [place] [address] Dr. Karla Lagos Basophils/100 WBC (Bld) 0.9 % Normal 0.2-2.0 [facility] Comment on above: Performed By: #### P HOS, URIC, MG, CMP, DBIL, LIPID #### [facility] [address] [place] [address] Dr. Karla Lagos EO # 0.1 103/ul Normal 0.0-0.7 [facility] Comment on above: Performed By: #### P HOS, URIC, MG, CMP, DBIL, LIPID #### [facility] [address] [place] [address] Dr. Karla Lagos Eosinophils/100 WBC (Bld) 1.6 % Normal 0.9-7.0 [facility] Comment on above: Performed By: #### P HOS, URIC, MG, CMP, DBIL, LIPID #### [facility] [address] [place] [address] Dr. Karla Lagos Erythrocyte distribution width (RBC) [Ratio] 13.4 % Normal 11.0-15.0 [facility] Comment on above: Performed By: #### P HOS, URIC, MG, CMP, DBIL, LIPID #### [facility] [address] [place] [address] Dr. Karla Lagos Hematocrit (Bld) [Volume fraction] 46.3 % Normal 42.0-54.0 [facility] Comment on above: Performed By: #### P HOS, URIC, MG, CMP, DBIL, LIPID #### [facility] [address] [place] [address] Dr. Karla Lagos Hemoglobin (Bld) [Mass/Vol] 15.4 g/dL Normal 14.0-18.0 [facility] Comment on above: Performed By: #### P HOS, URIC, MG, CMP, DBIL, LIPID #### [facility] [address] [place] [address] Dr. Karla Lagos IG # 0.10 10e3/ul Critically high 0.00-0.03 [facility] Comment on above: Performed By: #### P HOS, URIC, MG, CMP, DBIL, LIPID #### [facility] [address] [place] [address] Dr. Karla Lagos IG % 1.3 % Critically high 0.0-0.5 [facility] Comment on above: Performed By: #### P HOS, URIC, MG, CMP, DBIL, LIPID #### [facility] [address] [place] [address] Dr. Karla Lagos LYMPH # 1.0 103/ul Critically low 1.2-3.[address] [facility] Comment on above: Performed By: #### P HOS, URIC, MG, CMP, DBIL, LIPID #### [facility] [address] [place] [address] Dr. Karla Lagos Lymphocytes/100 WBC (Bld) 12.8 % Critically low 20.5-60.0 [facility] Comment on above: Performed By: #### P HOS, URIC, MG, CMP, DBIL, LIPID #### [facility] [address] [place] [address] Dr. Karla Lagos MANUAL DIFF REQ NO Normal [facility] Comment on above: Performed By: #### P HOS, URIC, MG, CMP, DBIL, LIPID #### [facility] [address] [place] [address] Dr. Karla Lagos MCH (RBC) [Entitic mass] 30.4 pg Normal 25.9-34.0 [facility] Comment on above: Performed By: #### P HOS, URIC, MG, CMP, DBIL, LIPID #### [facility] [address] [place] [address] Dr. Karla Lagos MCHC (RBC) [Mass/Vol] 33.3 g/dL Normal 29.9-35.2 [facility] Comment on above: Performed By: #### P HOS, URIC, MG, CMP, DBIL, LIPID #### [facility] [address] [place] [address] Dr. Karla Lagos MCV (RBC) [Entitic vol] 91.3 fL Normal 80.0-94.0 [facility] Comment on above: Performed By: #### P HOS, URIC, MG, CMP, DBIL, LIPID #### [facility] [address] [place] [address] Dr. Karla Lagos MONO # 0.6 103/ul Normal 0.3-0.8 [facility] Comment on above: Performed By: #### P HOS, URIC, MG, CMP, DBIL, LIPID #### [facility] [address] [place] [address] Dr. Karla Lagos Monocytes/100 WBC (Bld) 8.6 % Normal 1.7-12.0 [facility] Comment on above: Performed By: #### P HOS, URIC, MG, CMP, DBIL, LIPID #### [facility] [address] [place] [address] Dr. Karla Lagos NEUT # 5.5 103/ul Normal 1.4-6.5 [facility] Comment on above: Performed By: #### P HOS, URIC, MG, CMP, DBIL, LIPID #### [facility] [address] [place] [address] Dr. Karla Lagos Neutrophils/100 WBC (Bld) 74.8 % Normal 43.0-75.0 [facility] Comment on above: Performed By: #### P HOS, URIC, MG, CMP, DBIL, LIPID #### [facility] [address] [place] [address] Dr. Karla Lagos Platelet mean volume (Bld) [Entitic vol] 9.6 fL Normal 9.5-13.5 [facility] Comment on above: Performed By: #### P HOS, URIC, MG, CMP, DBIL, LIPID #### [facility] [address] [place] [address] Dr. Karla Lagos PLT 312 103/ul Normal 150-450 [facility] Comment on above: Performed By: #### P HOS, URIC, MG, CMP, DBIL, LIPID #### [facility] [address] [place] [address] Dr. Karla Lagos RBC 5.07 106/ul Normal 4.70-6.10 [facility] Comment on above: Performed By: #### P HOS, URIC, MG, CMP, DBIL, LIPID #### [facility] [address] [place] [address] Dr. Karla Lagos WBC 7.4 103/ul Normal 4.0-11.0 [facility] Comment on above: Performed By: #### P HOS, URIC, MG, CMP, DBIL, LIPID #### [facility] [address] [place] [address] Dr. Karla Lagos LIPID PROFILEon 06-01-2022 CHOL-HDL RATIO NORM SEE BELOW Normal [facility] Comment on above: Result Comment: 3.3 - 4.4 LOW RISK 4.4 - 7.1 AVERAGE RISK 7.1 - 11.0 MODERATE RISK >11.0 HIGH RISK Performed By: #### P HOS, URIC, MG, CMP, DBIL, LIPID #### [facility] [address] [address] [address] Karla Lagos Cholesterol [Mass/Vol] 108 mg/dL Normal <=200 [facility] Comment on above: Performed By: #### P HOS, URIC, MG, CMP, DBIL, LIPID #### [facility] [address] [address] [address] Karla Lagos Cholesterol in HDL [Mass/Vol] 36 mg/dL Critically low 40-60 [facility] Comment on above: Performed By: #### P HOS, URIC, MG, CMP, DBIL, LIPID #### [facility] [address] [address] [address] Karla Lagos Cholesterol in LDL [Mass/Vol] 58.4 mg/dL Normal [facility] Comment on above: Performed By: #### P HOS, URIC, MG, CMP, DBIL, LIPID #### [facility] [address] [address] [address] Karla Lagos Cholesterol.total/C holesterol in HDL [Mass ratio] 3.0 {ratio} Normal [facility] Comment on above: Performed By: #### P HOS, URIC, MG, CMP, DBIL, LIPID #### [facility] [address] [address] [address] Karla Lagos HDL NORMAL > or = 60 mg/dl - LO W CARDIOVASCULAR RISK <40 mg/dl - HIGH CARDIOVASCULAR RISK Normal [facility] Comment on above: Performed By: #### P HOS, URIC, MG, CMP, DBIL, LIPID #### [facility] [address] [address] [address] Karla Lagos LDL CALC NORMAL SEE BELOW Normal [facility] Comment on above: Result Comment: <100 mg/dl OPTIMAL 100 - 129 mg/dl NEAR OR ABOVE OPTIMAL 130 - 159 mg/dl BORDERLINE HIGH 160 - 189 mg/dl HIGH >190 mg/dl VERY HIGH Performed By: #### P HOS, URIC, MG, CMP, DBIL, LIPID #### [facility] [address] [place] [address] Dr. Karla Lagos Triglyceride [Mass/Vol] 68 mg/dL Normal <=150 [facility] Comment on above: Performed By: #### P HOS, URIC, MG, CMP, DBIL, LIPID #### [facility] [address] [place] [address] Dr. Karla Lagos VLDL CALC 13.6 mg/dL Normal [facility] Comment on above: Performed By: #### P HOS, URIC, MG, CMP, DBIL, LIPID #### [facility] [address] [place] [address] Dr. Karla Lagos MAGNESIUMon 06-01-2022 Magnesium [Mass/Vol] 1.7 mg/dL Critically low 1.8-2.4 [facility] Comment on above: Performed By: #### P HOS, URIC, MG, CMP, DBIL, LIPID #### [facility] [address] [place] [address] Dr. Karla Lagos PHOSPHORUSon 06-01-2022 Phosphate [Mass/Vol] 3.7 mg/dL Normal 2.6-4.7 [facility] Comment on above: Performed By: #### P HOS, URIC, MG, CMP, DBIL, LIPID #### [facility] [address] [place] [address] Dr. Karla Lagos PROF 14(COMP METB)on 023 Albumin [Mass/Vol] 3.4 g/dL Normal 3.4-5.0 [facility] Comment on above: Performed By: #### P HOS, URIC, MG, CMP, DBIL, LIPID #### [facility] [address] [place] [address] Dr. Karla Lagos Albumin/Globulin [Mass ratio] 1.0 {ratio} Normal [facility] Comment on above: Performed By: #### P HOS, URIC, MG, CMP, DBIL, LIPID #### [facility] [address] [address] [address] Karla Lagos ALP [Catalytic activity/Vol] 92 U/L Normal 46-116 [facility] Comment on above: Performed By: #### P HOS, URIC, MG, CMP, DBIL, LIPID #### [facility] [address] [place] [address] Dr. Karla Lagos ALT [Catalytic activity/Vol] 33 U/L Normal 16-63 [facility] Comment on above: Performed By: #### P HOS, URIC, MG, CMP, DBIL, LIPID #### [facility] [address] [place] [address] Dr. Karla Lagos Anion gap [Moles/Vol] 12.7 mmol/L Normal [facility] Comment on above: Performed By: #### P HOS, URIC, MG, CMP, DBIL, LIPID #### [facility] [address] [place] [address] Dr. Karla Lagos AST [Catalytic activity/Vol] 21 U/L Normal 15-37 [facility] Comment on above: Performed By: #### P HOS, URIC, MG, CMP, DBIL, LIPID #### [facility] [address] [place] [address] Dr. Karla Lagos Bilirubin [Mass/Vol] 0.4 mg/dL Normal 0.2-1.0 [facility] Comment on above: Performed By: #### P HOS, URIC, MG, CMP, DBIL, LIPID #### [facility] [address] [place] [address] Dr. Karla Lagos Calcium [Mass/Vol] 9.0 mg/dL Normal 8.5-10.1 [facility] Comment on above: Performed By: #### P HOS, URIC, MG, CMP, DBIL, LIPID #### [facility] [address] [place] [address] Dr. Karla Lagos Chloride [Moles/Vol] 104 mmol/L Normal 98-107 [facility] Comment on above: Performed By: #### P HOS, URIC, MG, CMP, DBIL, LIPID #### [facility] [address] [address] [address] Karla Lagos CO2 [Moles/Vol] 28.7 mmol/L Normal 21.0-32.0 [facility] Comment on above: Performed By: #### P HOS, URIC, MG, CMP, DBIL, LIPID #### [facility] [address] [place] [address] Dr. Karla Lagos Creatinine [Mass/Vol] 1.15 mg/dL Normal 0.70-1.30 [facility] Comment on above: Performed By: #### P HOS, URIC, MG, CMP, DBIL, LIPID #### [facility] [address] [place] [address] Dr. Karla Lagos EGFR-AF FILIPINO >60 Normal >=60 [facility] Comment on above: Performed By: #### P HOS, URIC, MG, CMP, DBIL, LIPID #### [facility] [address] [place] [address] Dr. Karla Lagos EGFR-NON AF FILIPINO >60 Normal >=60 [facility] Comment on above: Performed By: #### P HOS, URIC, MG, CMP, DBIL, LIPID #### [facility] [address] [place] [address] Dr. Kalra Lagos Globulin (S) [Mass/Vol] 3.3 g/dL Normal [facility] Comment on above: Performed By: #### P HOS, URIC, MG, CMP, DBIL, LIPID #### [facility] [address] [place] [address] Dr. Karla Lagos Glucose [Mass/Vol] 112 mg/dL Critically high 74-106 [facility] Comment on above: Performed By: #### P HOS, URIC, MG, CMP, DBIL, LIPID #### [facility] [address] [place] [address] Dr. Karla Lagos Potassium [Moles/Vol] 4.4 mmol/L Normal 3.5-5.1 [facility] Comment on above: Performed By: #### P HOS, URIC, MG, CMP, DBIL, LIPID #### [facility] [address] [place] [address] Dr. Karla Lagos Protein [Mass/Vol] 6.7 g/dL Normal 6.4-8.2 [facility] Comment on above: Performed By: #### P HOS, URIC, MG, CMP, DBIL, LIPID #### [facility] [address] [address] [address] Karla Lagos Sodium [Moles/Vol] 141 mmol/L Normal 136-145 [facility] Comment on above: Performed By: #### P HOS, URIC, MG, CMP, DBIL, LIPID #### [facility] [address] [address] [address] Karla Lagos Urea nitrogen [Mass/Vol] 17.0 mg/dL Normal 7.0-18.0 [facility] Comment on above: Performed By: #### P HOS, URIC, MG, CMP, DBIL, LIPID #### [facility] [address] [place] [address] Dr. Karla Lagos Urea nitrogen/Creatinine [Mass ratio] 14.8 mg/mg Normal [facility] Comment on above: Performed By: #### P HOS, URIC, MG, CMP, DBIL, LIPID #### [facility] [address] [address] [address] Karla Lagos URIC ACID SERUMon 06-01-2022 Urate [Mass/Vol] 5.3 mg/dL Normal 3.5-7.2 [facility] Comment on above: Performed By: #### P HOS, URIC, MG, CMP, DBIL, LIPID #### [facility] [address] [place] [address] Dr. Karla Lagos NM STRESS/REST MULTIon 05-30 NM STRESS/REST MULTI Patient: VISHAL DUKE Exam Date: 05/30/2022 : 1960 Gender:M Ordering : DR FEDERICO CHESTER M.D. Admission #: [id number] Family : Order #: [id number] CLICK HERE TO VIEW EXAM RADIOLOGY REPORT PROCEDURE: RADIONUCLIDE IMAGING STRESS/REST MULTI COMPARISON: NM STRESS/REST MULTI, 01/11/2021. INDICATIONS: Preoperative cardiovascular examination TECHNIQUE: Exam Description: Stress/Rest one day protocol gated SPECT Rest Imagin.0 mCi Tc-99m Cardiolite IV on 05/30/2022 Stress Imaging 30.2 mCi Tc-99m Cardiolite IV on 05/30/2022 Exercise Protocol: 0.4 mg Lexiscan given IV Heart Rate (bpm): Rest: 60 Max: 85 PMHR: 53 Blood Pressure: Rest: 142/76 Max: 142/76 Symptoms: Rest and peak stress ECG findings were normal and the exercise portion of the study was normal per attending physician Dr. Chester . For more details please see separate cardiac stress test report. FINDINGS: QUALITY OF STUDY: Good. PERFUSION DEFECT: LOCATION: Basal anteroseptal. Basal inferoseptal. Basal inferior. Mid-anteroseptal. Mid-inferoseptal. Mid-inferior. [place]. SIZE: Large (5 or more segments). SEVERITY: Severe. TYPE: Mixed. WALL MOTION: Severe hypokinesis: Basal anteroseptal. Basal inferoseptal. Mid-anteroseptal. Mid-inferoseptal. LV SIZE: Enlarged; EDV 142 mL. TID / TCD: None; 1.0 LVEF: Abnormal. Calculated EF 43%. SUMMARY: Myocardial perfusion imaging study has ABNORMAL findings. CONCLUSION: 1. Large area of the septal and inferior wall extending into the anterior wall and apex. 2. Small amount reversible ischemia is favored 3. Dilated left ventricle, end-diastolic 142 4. Normal exercise test Dictated by: Aime Villasenor MD on 06/01/2022 at 06:07 Approved by: Aime Villasenor MD on 06/01/2022 at 06:10 Normal [facility] Office Visiton 05-18-2022 Follow-up visit [id number] Vishal Duke 1960 M Date Provider Department Center 05/18/2022 271-FEDERICO CHESTER [facility] Family History Problem Relation Age of Onset Alzheimer's disease Mother Coronary artery disease Father Family Status - Relation Status Age at Mother Father Level of Service:02037 SC OFFICE/OUTPATIENT ESTABLISHED MOD MDM 30-39 MIN Reason for Visit and Comments: Coronary Artery Disease [187] Hyperlipidemia [182] Hypertension [828956] Normal [facility] FK506 (TACROLIMUS) WHOLE BLO ODon 05-06-2022 Tacrolimus (FK506), Blood 5.4 ng/mL Normal 2.0-20.0 [facility] Comment on above: Result Comment: Trou gh (immediately following transplant) 15.0 . Trough (steady state, 2 weeks or more after transplant): 3.0 - 8.0 . Performed by LC-MS/MS technology. Performed By: #### P HOS, URIC, MG, CMP, DBIL, LIPID #### [facility] [address] [place] [address] Dr. Karla Lagos BK VIRUS PCR QUANTon 023 BKV DNA QUANT PCR PLASMA Negative Normal Negative [facility] Comment on above: Result Comment: No B K DNA detected. . The linear range of the assay is 22 - 100,000,000 IU/mL. Performed By: #### P HOS, URIC, MG, CMP, DBIL, LIPID #### [facility] [address] [place] [address] Dr. Karla Lagos Log10 BKV DNA Plasma Normal [facility] Comment on above: Performed By: #### P HOS, URIC, MG, CMP, DBIL, LIPID #### [facility] [address] [place] [address] Dr. Karla Lagos BILIRUBIN CONJUGATED (DIRECT )on 05-03-2022 BILI, CONJUGATED 0.2 mg/dL Normal 0.0-0.2 [facility] Comment on above: Performed By: #### P HOS, URIC, MG, CMP, DBIL, LIPID #### [facility] [address] [place] [address] Dr. Karla Lagos CBC AUTO DIFFon 05-03-2022 BASO # 0.1 103/ul Normal 0.0-0.1 [facility] Comment on above: Performed By: #### P HOS, URIC, MG, CMP, DBIL, LIPID #### [facility] [address] [place] [address] Dr. Karla Lagos Basophils/100 WBC (Bld) 0.7 % Normal 0.2-2.0 [facility] Comment on above: Performed By: #### P HOS, URIC, MG, CMP, DBIL, LIPID #### [facility] [address] [address] [address] Karla Lagos EO # 0.1 103/ul Normal 0.0-0.7 [facility] Comment on above: Performed By: #### P HOS, URIC, MG, CMP, DBIL, LIPID #### [facility] [address] [address] [address] Karla Lagos Eosinophils/100 WBC (Bld) 1.6 % Normal 0.9-7.0 [facility] Comment on above: Performed By: #### P HOS, URIC, MG, CMP, DBIL, LIPID #### [facility] [address] [address] [address] Karla Lagos Erythrocyte distribution width (RBC) [Ratio] 13.7 % Normal 11.0-15.0 [facility] Comment on above: Performed By: #### P HOS, URIC, MG, CMP, DBIL, LIPID #### [facility] [address] [place] [address] Dr. Karla Lagos Hematocrit (Bld) [Volume fraction] 49.1 % Normal 42.0-54.0 [facility] Comment on above: Performed By: #### P HOS, URIC, MG, CMP, DBIL, LIPID #### [facility] [address] [place] [address] Dr. Karla Lagos Hemoglobin (Bld) [Mass/Vol] 16.5 g/dL Normal 14.0-18.0 [facility] Comment on above: Performed By: #### P HOS, URIC, MG, CMP, DBIL, LIPID #### [facility] [address] [place] [address] Dr. Karla Lagos IG # 0.05 10e3/ul Critically high 0.00-0.03 [facility] Comment on above: Performed By: #### P HOS, URIC, MG, CMP, DBIL, LIPID #### [facility] [address] [place] [address] Dr. Karla Lagos IG % 0.7 % Critically high 0.0-0.5 [facility] Comment on above: Performed By: #### P HOS, URIC, MG, CMP, DBIL, LIPID #### [facility] [address] [place] [address] Dr. Karla Lagos LYMPH # 1.0 103/ul Critically low 1.2-3.[address] [facility] Comment on above: Performed By: #### P HOS, URIC, MG, CMP, DBIL, LIPID #### [facility] [address] [place] [address] Dr. Karla Lagos Lymphocytes/100 WBC (Bld) 13.7 % Critically low 20.5-60.0 [facility] Comment on above: Performed By: #### P HOS, URIC, MG, CMP, DBIL, LIPID #### [facility] [address] [place] [address] Dr. Karla Lagos MANUAL DIFF REQ NO Normal [facility] Comment on above: Performed By: #### P HOS, URIC, MG, CMP, DBIL, LIPID #### [facility] [address] [place] [address] Dr. Karla Lagos MCH (RBC) [Entitic mass] 30.9 pg Normal 25.9-34.0 [facility] Comment on above: Performed By: #### P HOS, URIC, MG, CMP, DBIL, LIPID #### [facility] [address] [place] [address] Dr. Karla Lagos MCHC (RBC) [Mass/Vol] 33.6 g/dL Normal 29.9-35.2 [facility] Comment on above: Performed By: #### P HOS, URIC, MG, CMP, DBIL, LIPID #### [facility] [address] [place] [address] Dr. Karla Lagos MCV (RBC) [Entitic vol] 91.9 fL Normal 80.0-94.0 [facility] Comment on above: Performed By: #### P HOS, URIC, MG, CMP, DBIL, LIPID #### [facility] [address] [place] [address] Dr. Karla Lagos MONO # 0.7 103/ul Normal 0.3-0.8 [facility] Comment on above: Performed By: #### P HOS, URIC, MG, CMP, DBIL, LIPID #### [facility] [address] [place] [address] Dr. Karla Lagos Monocytes/100 WBC (Bld) 9.7 % Normal 1.7-12.0 [facility] Comment on above: Performed By: #### P HOS, URIC, MG, CMP, DBIL, LIPID #### [facility] [address] [place] [address] Dr. Karla Lagos NEUT # 5.2 103/ul Normal 1.4-6.5 [facility] Comment on above: Performed By: #### P HOS, URIC, MG, CMP, DBIL, LIPID #### [facility] [address] [place] [address] Dr. Karla Lagos Neutrophils/100 WBC (Bld) 73.6 % Normal 43.0-75.0 [facility] Comment on above: Performed By: #### P HOS, URIC, MG, CMP, DBIL, LIPID #### [facility] [address] [place] [address] Dr. Karla Lagos Platelet mean volume (Bld) [Entitic vol] 10.2 fL Normal 9.5-13.5 [facility] Comment on above: Performed By: #### P HOS, URIC, MG, CMP, DBIL, LIPID #### [facility] [address] [place] [address] Dr. Karla Lagos PLT 218 103/ul Normal 150-450 [facility] Comment on above: Performed By: #### P HOS, URIC, MG, CMP, DBIL, LIPID #### [facility] [address] [place] [address] Dr. Karla Lagos RBC 5.34 106/ul Normal 4.70-6.10 [facility] Comment on above: Performed By: #### P HOS, URIC, MG, CMP, DBIL, LIPID #### [facility] [address] [place] [address] Dr. Karla Lagos WBC 7.1 103/ul Normal 4.0-11.0 [facility] Comment on above: Performed By: #### P HOS, URIC, MG, CMP, DBIL, LIPID #### [facility] [address] [address] [address] Karla Lagos LIPID PROFILEon 05-03-2022 CHOL-HDL RATIO NORM SEE BELOW Normal [facility] Comment on above: Result Comment: 3.3 - 4.4 LOW RISK 4.4 - 7.1 AVERAGE RISK 7.1 - 11.0 MODERATE RISK >11.0 HIGH RISK Performed By: #### M G, CMP, URIC, DBIL, LIPID, PHOS #### [facility] [address] [address] [address] Karla Lagos Cholesterol [Mass/Vol] 121 mg/dL Normal <=200 [facility] Comment on above: Performed By: #### M G, CMP, URIC, DBIL, LIPID, PHOS #### [facility] [address] [place] [address] Dr. Karla Lagos Cholesterol in HDL [Mass/Vol] 44 mg/dL Normal 40-60 [facility] Comment on above: Performed By: #### M G, CMP, URIC, DBIL, LIPID, PHOS #### [facility] [address] [place] [address] Dr. Karla Lagos Cholesterol in LDL [Mass/Vol] 40.0 mg/dL Normal [facility] Comment on above: Performed By: #### M G, CMP, URIC, DBIL, LIPID, PHOS #### [facility] [address] [place] [address] Dr. Karla Lagos Cholesterol.total/C holesterol in HDL [Mass ratio] 2.8 {ratio} Normal [facility] Comment on above: Performed By: #### M G, CMP, URIC, DBIL, LIPID, PHOS #### [facility] [address] [place] [address] Dr. Karla Lagos HDL NORMAL > or = 60 mg/dl - LO W CARDIOVASCULAR RISK <40 mg/dl - HIGH CARDIOVASCULAR RISK Normal [facility] Comment on above: Performed By: #### M G, CMP, URIC, DBIL, LIPID, PHOS #### [facility] [address] [address] [address] Karla Lagos LDL CALC NORMAL SEE BELOW Normal [facility] Comment on above: Result Comment: <100 mg/dl OPTIMAL 100 - 129 mg/dl NEAR OR ABOVE OPTIMAL 130 - 159 mg/dl BORDERLINE HIGH 160 - 189 mg/dl HIGH >190 mg/dl VERY HIGH Performed By: #### M G, CMP, URIC, DBIL, LIPID, PHOS #### [facility] [address] [address] [address] Karla Lagos Triglyceride [Mass/Vol] 185 mg/dL Critically high <=150 [facility] Comment on above: Performed By: #### M G, CMP, URIC, DBIL, LIPID, PHOS #### [facility] [address] [place] [address] Dr. Karla Lagos VLDL CALC 37.0 mg/dL Normal [facility] Comment on above: Performed By: #### M G, CMP, URIC, DBIL, LIPID, PHOS #### [facility] [address] [place] [address] Dr. Karla Lagos MAGNESIUMon 05-03-2022 Magnesium [Mass/Vol] 1.6 mg/dL Critically low 1.8-2.4 [facility] Comment on above: Performed By: #### P HOS, URIC, MG, CMP, DBIL, LIPID #### [facility] [address] [place] [address] Dr. Karla Lagos PHOSPHORUSon 05-03-2022 Phosphate [Mass/Vol] 3.6 mg/dL Normal 2.6-4.7 [facility] Comment on above: Performed By: #### P HOS, URIC, MG, CMP, DBIL, LIPID #### [facility] [address] [place] [address] Dr. Karla Lagos PROF 14(COMP METB)on 023 Albumin [Mass/Vol] 3.9 g/dL Normal 3.4-5.0 [facility] Comment on above: Performed By: #### M G, CMP, URIC, DBIL, LIPID, PHOS #### [facility] [address] [place] [address] Dr. Karla Lgaos Albumin/Globulin [Mass ratio] 1.3 {ratio} Normal [facility] Comment on above: Performed By: #### M G, CMP, URIC, DBIL, LIPID, PHOS #### [facility] [address] [place] [address] Dr. Karla Lagos ALP [Catalytic activity/Vol] 80 U/L Normal 46-116 [facility] Comment on above: Performed By: #### M G, CMP, URIC, DBIL, LIPID, PHOS #### [facility] [address] [place] [address] Dr. Karla Lagos ALT [Catalytic activity/Vol] 41 U/L Normal 16-63 [facility] Comment on above: Performed By: #### M G, CMP, URIC, DBIL, LIPID, PHOS #### [facility] [address] [place] [address] Dr. Karla Lagos Anion gap [Moles/Vol] 11.9 mmol/L Normal [facility] Comment on above: Performed By: #### M G, CMP, URIC, DBIL, LIPID, PHOS #### [facility] [address] [place] [address] Dr. Karla Lagos AST [Catalytic activity/Vol] 24 U/L Normal 15-37 [facility] Comment on above: Performed By: #### M G, CMP, URIC, DBIL, LIPID, PHOS #### [facility] [address] [place] [address] Dr. Karla Lagos Bilirubin [Mass/Vol] 0.7 mg/dL Normal 0.2-1.0 [facility] Comment on above: Performed By: #### M G, CMP, URIC, DBIL, LIPID, PHOS #### [facility] [address] [place] [address] Dr. Karla Lagos Calcium [Mass/Vol] 9.2 mg/dL Normal 8.5-10.1 [facility] Comment on above: Performed By: #### M G, CMP, URIC, DBIL, LIPID, PHOS #### [facility] [address] [place] [address] Dr. Karla Lagos Chloride [Moles/Vol] 103 mmol/L Normal 98-107 [facility] Comment on above: Performed By: #### M G, CMP, URIC, DBIL, LIPID, PHOS #### [facility] [address] [place] [address] Dr. Karla Lagos CO2 [Moles/Vol] 28.1 mmol/L Normal 21.0-32.0 [facility] Comment on above: Performed By: #### M G, CMP, URIC, DBIL, LIPID, PHOS #### [facility] [address] [place] [address] Dr. Karla Lagos Creatinine [Mass/Vol] 1.19 mg/dL Normal 0.70-1.30 [facility] Comment on above: Performed By: #### M G, CMP, URIC, DBIL, LIPID, PHOS #### [facility] [address] [place] [address] Dr. Karla Lagos EGFR-AF FILIPINO >60 Normal >=60 [facility] Comment on above: Performed By: #### M G, CMP, URIC, DBIL, LIPID, PHOS #### [facility] [address] [place] [address] Dr. Karla Lagos EGFR-NON AF FILIPINO >60 Normal >=60 [facility] Comment on above: Performed By: #### M G, CMP, URIC, DBIL, LIPID, PHOS #### [facility] [address] [place] [address] Dr. Karla Lagos Globulin (S) [Mass/Vol] 2.9 g/dL Normal [facility] Comment on above: Performed By: #### M G, CMP, URIC, DBIL, LIPID, PHOS #### [facility] [address] [place] [address] Dr. Karla Lagos Glucose [Mass/Vol] 119 mg/dL Critically high 74-106 [facility] Comment on above: Performed By: #### M G, CMP, URIC, DBIL, LIPID, PHOS #### [facility] [address] [place] [address] Dr. Karla Lagos Potassium [Moles/Vol] 4.0 mmol/L Normal 3.5-5.1 [facility] Comment on above: Performed By: #### M G, CMP, URIC, DBIL, LIPID, PHOS #### [facility] [address] [place] [address] Dr. Karla Lagos Protein [Mass/Vol] 6.8 g/dL Normal 6.4-8.2 [facility] Comment on above: Performed By: #### M G, CMP, URIC, DBIL, LIPID, PHOS #### [facility] [address] [address] [address] Karla Lagos Sodium [Moles/Vol] 139 mmol/L Normal 136-145 [facility] Comment on above: Performed By: #### M G, CMP, URIC, DBIL, LIPID, PHOS #### [facility] [address] [place] [address] Dr. Karla Lagos Urea nitrogen [Mass/Vol] 20.0 mg/dL Critically high 7.0-18.0 [facility] Comment on above: Performed By: #### M G, CMP, URIC, DBIL, LIPID, PHOS #### [facility] [address] [place] [address] Dr. Karla Lagos Urea nitrogen/Creatinine [Mass ratio] 16.8 mg/mg Normal [facility] Comment on above: Performed By: #### M G, CMP, URIC, DBIL, LIPID, PHOS #### [facility] [address] [place] [address] Dr. Karla Lagos URIC ACID SERUMon 05-03-2022 Urate [Mass/Vol] 5.5 mg/dL Normal 3.5-7.2 [facility] Comment on above: Performed By: #### M G, CMP, URIC, DBIL, LIPID, PHOS #### [facility] [address] [place] [address] Dr. Karla Lagos FK506 (TACROLIMUS) WHOLE BLO ODon 04-17-2022 Tacrolimus (FK506), Blood 6.1 ng/mL Normal 2.0-20.0 [facility] Comment on above: Result Comment: Trou gh (immediately following transplant) 15.0 . Trough (steady state, 2 weeks or more after transplant): 3.0 - 8.0 . Performed by LC-MS/MS technology. Performed By: #### P HOS, URIC, MG, CMP, DBIL, LIPID #### [facility] [address] [place] [address] Dr. Karla Lagos CBC WITH AUTO DIFFERENTIALon 04-07-2022 Basophils (Bld) [#/Vol] 0.05 10*3/uL Normal 0.00-0.20 [facility] Comment on above: Performed By: #### L [id number] ####[facility] ([facility])[address] [facility] [place] [address] Basophils/100 WBC (Bld) 0.5 % Normal 0.0-1.0 [facility] Comment on above: Performed By: #### L [id number] ####[facility] ([facility])[address] [facility] [place] [address] Eosinophils (Bld) [#/Vol] 0.10 10*3/uL Normal 0.00-0.50 [facility] Comment on above: Performed By: #### L [id number] ####[facility] ([facility])[address] [facility] [place] [address] Eosinophils/100 WBC (Bld) 1.1 % Normal 0.0-6.0 [facility] Comment on above: Performed By: #### L [id number] ####[facility] ([facility])[address] [facility] [place] [address] Erythrocyte distribution width (RBC) [Ratio] 13.6 % Normal 11.5-15.0 [facility] Comment on above: Performed By: #### L [id number] ####[facility] ([facility])[address] [facility] [place] [address] ERYTHROCYTE MEAN CORPUSCULAR HEMOGLOBIN CONCENTRATION (G/DL) BY AUTOMATED 33.5 g/dL Normal 32.0-35.0 [facility] Comment on above: Performed By: #### L [id number] ####[facility] ([facility])[address] [place] [address] Hematocrit (Bld) [Volume fraction] 51.9 % Normal 39.0-55.0 [facility] Comment on above: Performed By: #### L [id number] ####[facility] ([facility])[address] [place] [address] Hemoglobin (Bld) [Mass/Vol] 17.4 g/dL High 13.0-17.0 [facility] Comment on above: Performed By: #### L [id number] ####[facility] ([facility])[address] [place] [address] Immature granulocytes (Bld) [#/Vol] 0.05 10*3/uL Normal 0.00-0.20 [facility] Comment on above: Performed By: #### L [id number] ####[facility] ([facility])[address] [place] [address] Immature granulocytes/100 WBC (Bld) 0.5 % Normal 0.0-1.0 [facility] Comment on above: Performed By: #### L [id number] ####[facility] ([facility])[address] [place] [address] Lymphocytes (Bld) [#/Vol] 0.83 10*3/uL Low 1.20-4.00 [facility] Comment on above: Performed By: #### L [id number] ####[facility] ([facility])[address] [place] [address] Lymphocytes/100 WBC (Bld) 9.0 % Low 20.0-45.0 [facility] Comment on above: Performed By: #### L [id number] ####[facility] ([facility])[address] [place] [address] MCH (RBC) [Entitic mass] 30.9 pg Normal 27.0-33.0 [facility] Comment on above: Performed By: #### L [id number] ####[facility] ([facility])[address] [place] [address] MCV (RBC) [Entitic vol] 92.2 fL Normal 82.0-98.0 [facility] Comment on above: Performed By: #### L [id number] ####[facility] ([facility])[address] [place], [place] [address] Monocytes (Bld) [#/Vol] 0.73 10*3/uL Normal 0.10-1.00 [facility] Comment on above: Performed By: #### L [id number] ####[facility] ([facility])[address] [place] [address] Monocytes/100 WBC (Bld) 7.9 % Normal 5.0-12.0 [facility] Comment on above: Performed By: #### L [id number] ####[facility] ([facility])[address] [place] [address] Neutrophils (Bld) [#/Vol] 7.50 10*3/uL Normal 1.60-7.60 [facility] Comment on above: Performed By: #### L [id number] ####[facility] [place] [address] Neutrophils/100 WBC (Bld) 81.0 % High 40.0-72.0 [facility] Comment on above: Performed By: #### L [id number] ####[facility] ([facility])[address] [place] [address] NRBC (PER 100 WBCS) BY AUTOMATED COUNT 0.0 % Normal 0.0-0.0 [facility] Comment on above: Performed By: #### L [id number] ####[facility] ([facility])[address] [place] [address] PLATELETS (10*3/UL) IN BLOOD AUTOMATED COUNT 255 10*3/uL Normal 150-400 [facility] Comment on above: Performed By: #### L [id number] ####[facility] ([facility])[address] [place] [address] RBC (Bld) [#/Vol] 5.63 10*6/uL Normal 4.20-5.70 [facility] Comment on above: Performed By: #### L [id number] ####[facility] ([facility])[address] [place] [address] WBC (Bld) [#/Vol] 9.26 10*3/uL Normal 4.00-10.60 [facility] Comment on above: Performed By: #### L [id number] ####[facility] ([facility])[address] [place] [address] COMPREHENSIVE METABOLIC PANE Nitin 04-07-2022 Albumin [Mass/Vol] 4.5 g/dL Normal 3.5-5.7 [facility] Comment on above: Performed By: #### L [id number] ####[facility] [place] [address] ALP [Catalytic activity/Vol] 68 U/L Normal 34-104 [facility] Comment on above: Performed By: #### L [id number] ####[facility] [place] [address] Anion gap [Moles/Vol] 7 mmol/L Normal 7-20 [facility] Comment on above: Performed By: #### L [id number] ####[facility] [place] [address] AST [Catalytic activity/Vol] 19 U/L Normal 13-39 [facility] Comment on above: Performed By: #### L [id number] ####[facility] ([facility])[address] [place] [address] Calcium [Mass/Vol] 9.8 mg/dL Normal 8.6-10.3 [facility] Comment on above: Performed By: #### L [id number] ####[facility] ([facility])[address] [place] [address] Chloride [Moles/Vol] 104 mmol/L Normal 98-107 [facility] Comment on above: Performed By: #### L [id number] ####[facility] ([facility])[address] [place] [address] CO2 [Moles/Vol] 29 mmol/L Normal 21-31 [facility] Comment on above: Performed By: #### L [id number] ####[facility] [place] [address] Creatinine [Mass/Vol] 1.32 mg/dL High 0.70-1.30 [facility] Comment on above: Performed By: #### L [id number] ####[facility] [place] [address] GLOMERULAR FILTRATION RATE ML/MIN/1.73 SQ M.PREDICTED 57.8 mL/min/1.73m*2 Low >60.0 [facility] Comment on above: Result Comment: The [facility]???s estimated glomerular filtration rate (eGFR) will no longer include consideration of race in its calculation. The National Kid[employer] Foundation???s eGFR Task Force developed new recommendations for the estimation of the glomerular filtration rate in the [place] They recommend immediate implementation of the new equation refit without the race variable in all laboratories because the calculation does not include race. In addition to not including race in the calculation and reporting, it included diversity in its development, and has acceptable performance characteristics and potential consequences that do not disproportionately affect any one group of individuals. Performed By: #### L [id number] ####[facility] [place] [address] Glucose [Mass/Vol] 120 mg/dL High 70-100 [facility] Comment on above: Performed By: #### L [id number] ####[facility] [place] [address] Potassium [Moles/Vol] 4.7 mmol/L Normal 3.5-5.1 [facility] Comment on above: Performed By: #### L [id number] ####[facility] [place] [address] Protein [Mass/Vol] 6.6 g/dL Normal 6.0-8.3 [facility] Comment on above: Performed By: #### L [id number] ####[facility] [place] [address] Sodium [Moles/Vol] 140 mmol/L Normal 136-145 [facility] Comment on above: Performed By: #### L [id number] ####[facility] ([facility])[address] [place] [address] Urea nitrogen [Mass/Vol] 24 mg/dL Normal 7-25 [facility] Comment on above: Performed By: #### L [id number] ####[facility] ([facility])[address] [facility] [place] [address] UREA NITROGEN/CREATININE (MASS RATIO) IN SER/PLAS 18.18 Normal [facility] Comment on above: Performed By: #### L [id number] ####[facility] ([facility])[address] [place] [address] Follow-Upon 04-07-2022 Follow-Up [id number] Vishal Duke 1960 M Date Provider Department Center 04/07/2022 [id number], OBI TXP None No family history on file Level of Service:93880 SC OFFICE/OUTPATIENT ESTABLISHED MOD MDM 30-39 MIN Reason for Visit and Comments: Kidney Follow-up [] - Patient reports some abdominal pain when he does too much, when he tries to bend down or squat it feels like a soft ball there RLQ. Normal [facility] HEPATIC FUNCTION PANELon Albumin [Mass/Vol] 4.6 g/dL Normal 3.5-5.7 [facility] Comment on above: Performed By: #### L [id number] #### [facility] ([facility]) [address] [place] [address] ALP [Catalytic activity/Vol] 70 U/L Normal 34-104 [facility] Comment on above: Performed By: #### L [id number] #### [facility] [address] [place] [address] ALT [Catalytic activity/Vol] 27 U/L Normal 7-52 [facility] Comment on above: Performed By: #### L [id number] #### [facility] ([facility]) [address] [place] [address] Performed By: #### L [id number] ####[facility] ([facility])[address] [place] [address] AST [Catalytic activity/Vol] 20 U/L Normal 13-39 [facility] Comment on above: Performed By: #### L [id number] #### [facility] ([facility]) [address] [place] [address] Bilirubin [Mass/Vol] 0.7 mg/dL Normal 0.3-1.0 [facility] Comment on above: Performed By: #### L [id number] #### [facility] ([facility]) [address] [place] [address] Performed By: #### L [id number] ####[facility] ([facility])[address] [place] [address] Magnesium [Mass/Vol] 0.2 mg/dL Normal 0-0.2 [facility] Comment on above: Performed By: #### L [id number] #### [facility] ([facility]) [address] [place] [address] Performed By: #### L [id number] #### [facility] ([facility]) [address] [place] [address] Protein [Mass/Vol] 6.8 g/dL Normal 6.0-8.3 [facility] Comment on above: Performed By: #### L [id number] #### [facility] ([facility]) [address] [place] [address] MAGNESIUMon 04-07-2022 Magnesium [Mass/Vol] 1.5 mg/dL Low 1.9-2.7 [facility] Comment on above: Performed By: #### L [id number] #### [facility] ([facility]) [address] [place] [address] Orders Onlyon 04-07-2022 Orders Only [id number] Vishal Duke Waldemar 1960 M Date Provider Department Center 04/07/2022 Sailaja-FARRUKH BLANCAS None No family history on file Normal [facility] PHOSPHORUSon 04-07-2022 Magnesium [Mass/Vol] 3.7 mg/dL Normal 2.5-5.0 [facility] Comment on above: Performed By: #### L [id number] #### [facility] ([facility]) [address] [place] [address] TACROLIMUS LEVELon Tacrolimus (Bld) [Mass/Vol] 11.4 ng/mL Normal 5.0-20.0 [facility] Comment on above: Result Comment: The [employer] Tacrolimus assay is a delayed one-step immunoassay for the quantitative determination of tacrolimus in human whole blood using the chemiluminescent microparticle immunoassay (CMIA) technology with flexible assay protocols, referred to as Chemiflex. Performed By: #### L [id number] ####[facility] ([facility])[address] [place] [address] URIC ACIDon 04-07-2022 Magnesium [Mass/Vol] 5.6 mg/dL Normal 4.4-7.6 [facility] Comment on above: Performed By: #### L [id number] ####[facility] ([facility])[address] [place] [address] FK506 (TACROLIMUS) WHOLE BLO ODon 03-28-2022 Tacrolimus (FK506), Blood 8.8 ng/mL Normal 2.0-20.0 [facility] Comment on above: Result Comment: Trou gh (immediately following transplant) 15.0 . Trough (steady state, 2 weeks or more after transplant): 3.0 - 8.0 . Performed by LC-MS/MS technology. Performed By: #### P HOS, URIC, MG, CMP, DBIL, LIPID #### [facility] [address] [address] [address] Karla Lagos BILIRUBIN CONJUGATED (DIRECT )on 03-25-2022 BILI, CONJUGATED 0.2 mg/dL Normal 0.0-0.2 [facility] Comment on above: Performed By: #### P HOS, URIC, MG, CMP, DBIL, LIPID #### [facility] [address] [place] [address] Dr. Karla Lagos CBC AUTO DIFFon 03-25-2022 BASO # 0.1 103/ul Normal 0.0-0.1 [facility] Comment on above: Performed By: #### P HOS, URIC, MG, CMP, DBIL, LIPID #### [facility] [address] [place] [address] Dr. Karla Lagos Basophils/100 WBC (Bld) 0.7 % Normal 0.2-2.0 [facility] Comment on above: Performed By: #### P HOS, URIC, MG, CMP, DBIL, LIPID #### [facility] [address] [place] [address] Dr. Karla Lagos EO # 0.1 103/ul Normal 0.0-0.7 [facility] Comment on above: Performed By: #### P HOS, URIC, MG, CMP, DBIL, LIPID #### [facility] [address] [place] [address] Dr. Karla Lagos Eosinophils/100 WBC (Bld) 1.4 % Normal 0.9-7.0 [facility] Comment on above: Performed By: #### P HOS, URIC, MG, CMP, DBIL, LIPID #### [facility] [address] [place] [address] Dr. Karla Lagos Erythrocyte distribution width (RBC) [Ratio] 13.6 % Normal 11.0-15.0 [facility] Comment on above: Performed By: #### P HOS, URIC, MG, CMP, DBIL, LIPID #### [facility] [address] [place] [address] Dr. Karla Lagos Hematocrit (Bld) [Volume fraction] 51.5 % Normal 42.0-54.0 [facility] Comment on above: Performed By: #### P HOS, URIC, MG, CMP, DBIL, LIPID #### [facility] [address] [place] [address] Dr. Karla Lagos Hemoglobin (Bld) [Mass/Vol] 16.8 g/dL Normal 14.0-18.0 [facility] Comment on above: Performed By: #### P HOS, URIC, MG, CMP, DBIL, LIPID #### [facility] [address] [address] [address] Karla Lagos IG # 0.06 10e3/ul Critically high 0.00-0.03 [facility] Comment on above: Performed By: #### P HOS, URIC, MG, CMP, DBIL, LIPID #### [facility] [address] [place] [address] Dr. Karla Lagos IG % 0.8 % Critically high 0.0-0.5 [facility] Comment on above: Performed By: #### P HOS, URIC, MG, CMP, DBIL, LIPID #### [facility] [address] [place] [address] Dr. Karla Lagos LYMPH # 1.1 103/ul Critically low 1.2-3.8 [facility] Comment on above: Performed By: #### P HOS, URIC, MG, CMP, DBIL, LIPID #### [facility] [address] [place] [address] Dr. Karla Lagos Lymphocytes/100 WBC (Bld) 14.8 % Critically low 20.5-60.0 [facility] Comment on above: Performed By: #### P HOS, URIC, MG, CMP, DBIL, LIPID #### [facility] [address] [place] [address] Dr. Karla Lagos MANUAL DIFF REQ NO Normal [facility] Comment on above: Performed By: #### P HOS, URIC, MG, CMP, DBIL, LIPID #### [facility] [address] [address] [address] Karla Lagos MCH (RBC) [Entitic mass] 30.2 pg Normal 25.9-34.0 [facility] Comment on above: Performed By: #### P HOS, URIC, MG, CMP, DBIL, LIPID #### [facility] [address] [place] [address] Dr. Karla Lagos MCHC (RBC) [Mass/Vol] 32.6 g/dL Normal 29.9-35.2 [facility] Comment on above: Performed By: #### P HOS, URIC, MG, CMP, DBIL, LIPID #### [facility] [address] [place] [address] Dr. Karla Lagos MCV (RBC) [Entitic vol] 92.6 fL Normal 80.0-94.0 [facility] Comment on above: Performed By: #### P HOS, URIC, MG, CMP, DBIL, LIPID #### [facility] [address] [place] [address] Dr. Karla Lagos MONO # 0.7 103/ul Normal 0.3-0.8 [facility] Comment on above: Performed By: #### P HOS, URIC, MG, CMP, DBIL, LIPID #### [facility] [address] [place] [address] Dr. Karla Lagos Monocytes/100 WBC (Bld) 10.0 % Normal 1.7-12.0 [facility] Comment on above: Performed By: #### P HOS, URIC, MG, CMP, DBIL, LIPID #### [facility] [address] [place] [address] Dr. Karla Lagos NEUT # 5.2 103/ul Normal 1.4-6.5 [facility] Comment on above: Performed By: #### P HOS, URIC, MG, CMP, DBIL, LIPID #### [facility] [address] [place] [address] Dr. Karla Lagos Neutrophils/100 WBC (Bld) 72.3 % Normal 43.0-75.0 [facility] Comment on above: Performed By: #### P HOS, URIC, MG, CMP, DBIL, LIPID #### [facility] [address] [place] [address] Dr. Karla Lagos Platelet mean volume (Bld) [Entitic vol] 10.4 fL Normal 9.5-13.5 [facility] Comment on above: Performed By: #### P HOS, URIC, MG, CMP, DBIL, LIPID #### [facility] [address] [address] [address] Karla Lagos PLT 245 103/ul Normal 150-450 [facility] Comment on above: Performed By: #### P HOS, URIC, MG, CMP, DBIL, LIPID #### [facility] [address] [place] [address] Dr. Karla Lagos RBC 5.56 106/ul Normal 4.70-6.10 [facility] Comment on above: Performed By: #### P HOS, URIC, MG, CMP, DBIL, LIPID #### [facility] [address] [address] [address] Karla Lagos WBC 7.2 103/ul Normal 4.0-11.0 [facility] Comment on above: Performed By: #### P HOS, URIC, MG, CMP, DBIL, LIPID #### [facility] [address] [place] [address] Dr. Karla Lagos LIPID PROFILEon 03-25-2022 CHOL-HDL RATIO NORM SEE BELOW Normal [facility] Comment on above: Result Comment: 3.3 - 4.4 LOW RISK 4.4 - 7.1 AVERAGE RISK 7.1 - 11.0 MODERATE RISK >11.0 HIGH RISK Performed By: #### P HOS, URIC, MG, CMP, DBIL, LIPID #### [facility] [address] [place] [address] Dr. Karla Lagos Cholesterol [Mass/Vol] 124 mg/dL Normal <=200 [facility] Comment on above: Performed By: #### P HOS, URIC, MG, CMP, DBIL, LIPID #### [facility] [address] [place] [address] Dr. Karla Lagos Cholesterol in HDL [Mass/Vol] 47 mg/dL Normal 40-60 [facility] Comment on above: Performed By: #### P HOS, URIC, MG, CMP, DBIL, LIPID #### [facility] [address] [place] [address] Dr. Karla Lagos Cholesterol in LDL [Mass/Vol] 47.4 mg/dL Normal [facility] Comment on above: Performed By: #### P HOS, URIC, MG, CMP, DBIL, LIPID #### [facility] [address] [address] [address] Karla Lagos Cholesterol.total/C holesterol in HDL [Mass ratio] 2.6 {ratio} Normal [facility] Comment on above: Performed By: #### P HOS, URIC, MG, CMP, DBIL, LIPID #### [facility] [address] [address] [address] Karla Lagos HDL NORMAL > or = 60 mg/dl - LO W CARDIOVASCULAR RISK <40 mg/dl - HIGH CARDIOVASCULAR RISK Normal [facility] Comment on above: Performed By: #### P HOS, URIC, MG, CMP, DBIL, LIPID #### [facility] [address] [address] [address] Karla Lagos LDL CALC NORMAL SEE BELOW Normal [facility] Comment on above: Result Comment: <100 mg/dl OPTIMAL 100 - 129 mg/dl NEAR OR ABOVE OPTIMAL 130 - 159 mg/dl BORDERLINE HIGH 160 - 189 mg/dl HIGH >190 mg/dl VERY HIGH Performed By: #### P HOS, URIC, MG, CMP, DBIL, LIPID #### [facility] [address] [address] [address] Karla Lagos Triglyceride [Mass/Vol] 148 mg/dL Normal <=150 [facility] Comment on above: Performed By: #### P HOS, URIC, MG, CMP, DBIL, LIPID #### [facility] [address] [address] [address] Karla Lagos VLDL CALC 29.6 mg/dL Normal [facility] Comment on above: Performed By: #### P HOS, URIC, MG, CMP, DBIL, LIPID #### [facility] [address] [address] [address] Karla Lagos MAGNESIUMon 03-25-2022 Magnesium [Mass/Vol] 1.5 mg/dL Critically low 1.8-2.4 [facility] Comment on above: Performed By: #### P HOS, URIC, MG, CMP, DBIL, LIPID #### [facility] [address] [address] [address] Karla Lagos PHOSPHORUSon 03-25-2022 Phosphate [Mass/Vol] 3.8 mg/dL Normal 2.6-4.7 [facility] Comment on above: Performed By: #### P HOS, URIC, MG, CMP, DBIL, LIPID #### [facility] [address] [place] [address] Dr. Karla Lagos PROF 14(COMP METB)on 022 Albumin [Mass/Vol] 4.1 g/dL Normal 3.4-5.0 [facility] Comment on above: Performed By: #### P HOS, URIC, MG, CMP, DBIL, LIPID #### [facility] [address] [place] [address] Dr. Karla Lagos Albumin/Globulin [Mass ratio] 1.3 {ratio} Normal [facility] Comment on above: Performed By: #### P HOS, URIC, MG, CMP, DBIL, LIPID #### [facility] [address] [place] [address] Dr. Karla Lagos ALP [Catalytic activity/Vol] 76 U/L Normal 46-116 [facility] Comment on above: Performed By: #### P HOS, URIC, MG, CMP, DBIL, LIPID #### [facility] [address] [place] [address] Dr. Karla Lagos ALT [Catalytic activity/Vol] 36 U/L Normal 16-63 [facility] Comment on above: Performed By: #### P HOS, URIC, MG, CMP, DBIL, LIPID #### [facility] [address] [place] [address] Dr. Karla Lagos Anion gap [Moles/Vol] 12.4 mmol/L Normal [facility] Comment on above: Performed By: #### P HOS, URIC, MG, CMP, DBIL, LIPID #### [facility] [address] [place] [address] Dr. Karla Lagos AST [Catalytic activity/Vol] 21 U/L Normal 15-37 [facility] Comment on above: Performed By: #### P HOS, URIC, MG, CMP, DBIL, LIPID #### [facility] [address] [address] [address] Karla Lagos Bilirubin [Mass/Vol] 0.6 mg/dL Normal 0.2-1.0 [facility] Comment on above: Performed By: #### P HOS, URIC, MG, CMP, DBIL, LIPID #### [facility] [address] [address] [address] Karla Lagos Calcium [Mass/Vol] 9.4 mg/dL Normal 8.5-10.1 [facility] Comment on above: Performed By: #### P HOS, URIC, MG, CMP, DBIL, LIPID #### [facility] [address] [place] [address] Dr. Karla Lagos Chloride [Moles/Vol] 103 mmol/L Normal 98-107 [facility] Comment on above: Performed By: #### P HOS, URIC, MG, CMP, DBIL, LIPID #### [facility] [address] [place] [address] Dr. Karla Lagos CO2 [Moles/Vol] 30.6 mmol/L Normal 21.0-32.0 [facility] Comment on above: Performed By: #### P HOS, URIC, MG, CMP, DBIL, LIPID #### [facility] [address] [place] [address] Dr. Karla Lagos Creatinine [Mass/Vol] 1.34 mg/dL Critically high 0.70-1.30 [facility] Comment on above: Performed By: #### P HOS, URIC, MG, CMP, DBIL, LIPID #### [facility] [address] [place] [address] Dr. Karla Lagos EGFR-AF FILIPINO >60 Normal >=60 [facility] Comment on above: Performed By: #### P HOS, URIC, MG, CMP, DBIL, LIPID #### [facility] [address] [place] [address] Dr. Karla Lagos EGFR-NON AF FILIPINO 54 mL/min/1.73m2 Critically low >=60 [facility] Comment on above: Performed By: #### P HOS, URIC, MG, CMP, DBIL, LIPID #### [facility] [address] [place] [address] Dr. Karla Lagos Globulin (S) [Mass/Vol] 3.2 g/dL Normal [facility] Comment on above: Performed By: #### P HOS, URIC, MG, CMP, DBIL, LIPID #### [facility] [address] [place] [address] Dr. Karla Lagos Glucose [Mass/Vol] 125 mg/dL Critically high 74-106 [facility] Comment on above: Performed By: #### P HOS, URIC, MG, CMP, DBIL, LIPID #### [facility] [address] [place] [address] Dr. Karla Lagos Potassium [Moles/Vol] 5.0 mmol/L Normal 3.5-5.1 [facility] Comment on above: Performed By: #### P HOS, URIC, MG, CMP, DBIL, LIPID #### [facility] [address] [place] [address] Dr. Karla Lagos Protein [Mass/Vol] 7.3 g/dL Normal 6.4-8.2 [facility] Comment on above: Performed By: #### P HOS, URIC, MG, CMP, DBIL, LIPID #### [facility] [address] [place] [address] Dr. Karla Lagos Sodium [Moles/Vol] 141 mmol/L Normal 136-145 [facility] Comment on above: Performed By: #### P HOS, URIC, MG, CMP, DBIL, LIPID #### [facility] [address] [place] [address] Dr. Karla Lagos Urea nitrogen [Mass/Vol] 24.0 mg/dL Critically high 7.0-18.0 [facility] Comment on above: Performed By: #### P HOS, URIC, MG, CMP, DBIL, LIPID #### [facility] [address] [place] [address] Dr. Karla Lagos Urea nitrogen/Creatinine [Mass ratio] 17.9 mg/mg Normal [facility] Comment on above: Performed By: #### P HOS, URIC, MG, CMP, DBIL, LIPID #### [facility] [address] [address] [address] Karla Lagos URIC ACID SERUMon 03-25-2022 Urate [Mass/Vol] 5.0 mg/dL Normal 3.5-7.2 [facility] Comment on above: Performed By: #### P HOS, URIC, MG, CMP, DBIL, LIPID #### [facility] [address] [address] [address] Karla Lagos FK506 (TACROLIMUS) WHOLE BLO ODon 02-27-2022 Tacrolimus (FK506), Blood 8.0 ng/mL Normal 2.0-20.0 [facility] Comment on above: Result Comment: Trou gh (immediately following transplant) 15.0 . Trough (steady state, 2 weeks or more after transplant): 3.0 - 8.0 . Performed by LC-MS/MS technology. Performed By: #### P HOS, URIC, MG, CMP, DBIL, LIPID #### [facility] [address] [place] [address] Dr. Karla Lagos BK VIRUS PCR QUANTon 022 BKV DNA QUANT PCR PLASMA Negative Normal Negative [facility] Comment on above: Result Comment: No B K DNA detected. . The linear range of the assay is 22 - 100,000,000 IU/mL. Performed By: #### P HOS, URIC, MG, CMP, DBIL, LIPID #### [facility] [address] [place] [address] Dr. Karla Lagos Log10 BKV DNA Plasma Normal [facility] Comment on above: Performed By: #### P HOS, URIC, MG, CMP, DBIL, LIPID #### [facility] [address] [place] [address] Dr. Karla Lagos BILIRUBIN CONJUGATED (DIRECT )on 02-24-2022 BILI, CONJUGATED 0.2 mg/dL Normal 0.0-0.2 [facility] Comment on above: Performed By: #### P HOS, URIC, MG, CMP, DBIL, LIPID #### [facility] [address] [place] [address] Dr. Karla Lagos CBC AUTO DIFFon 02-24-2022 BASO # 0.1 103/ul Normal 0.0-0.1 [facility] Comment on above: Performed By: #### P HOS, URIC, MG, CMP, DBIL, LIPID #### [facility] [address] [place] [address] Dr. Karla Lagos Basophils/100 WBC (Bld) 0.8 % Normal 0.2-2.0 [facility] Comment on above: Performed By: #### P HOS, URIC, MG, CMP, DBIL, LIPID #### [facility] [address] [place] [address] Dr. Karla Lagos EO # 0.1 103/ul Normal 0.0-0.7 [facility] Comment on above: Performed By: #### P HOS, URIC, MG, CMP, DBIL, LIPID #### [facility] [address] [place] [address] Dr. Karla Lagos Eosinophils/100 WBC (Bld) 1.7 % Normal 0.9-7.0 [facility] Comment on above: Performed By: #### P HOS, URIC, MG, CMP, DBIL, LIPID #### [facility] [address] [place] [address] Dr. Karla Lagos Erythrocyte distribution width (RBC) [Ratio] 14.1 % Normal 11.0-15.0 [facility] Comment on above: Performed By: #### P HOS, URIC, MG, CMP, DBIL, LIPID #### [facility] [address] [place] [address] Dr. Karla Lagos Hematocrit (Bld) [Volume fraction] 48.1 % Normal 42.0-54.0 [facility] Comment on above: Performed By: #### P HOS, URIC, MG, CMP, DBIL, LIPID #### [facility] [address] [place] [address] Dr. Karla Lagos Hemoglobin (Bld) [Mass/Vol] 16.0 g/dL Normal 14.0-18.0 [facility] Comment on above: Performed By: #### P HOS, URIC, MG, CMP, DBIL, LIPID #### [facility] [address] [address] [address] Karla Lagos IG # 0.03 10e3/ul Normal 0.00-0.03 [facility] Comment on above: Performed By: #### P HOS, URIC, MG, CMP, DBIL, LIPID #### [facility] [address] [place] [address] Dr. Karla Lagos IG % 0.5 % Normal 0.0-0.5 [facility] Comment on above: Performed By: #### P HOS, URIC, MG, CMP, DBIL, LIPID #### [facility] [address] [place] [address] Dr. Karla Lagos LYMPH # 1.0 103/ul Critically low 1.2-3.8 [facility] Comment on above: Performed By: #### P HOS, URIC, MG, CMP, DBIL, LIPID #### [facility] [address] [place] [address] Dr. Karla Lagos Lymphocytes/100 WBC (Bld) 16.9 % Critically low 20.5-60.0 [facility] Comment on above: Performed By: #### P HOS, URIC, MG, CMP, DBIL, LIPID #### [facility] [address] [place] [address] Dr. Karla Lagos MANUAL DIFF REQ NO Normal [facility] Comment on above: Performed By: #### P HOS, URIC, MG, CMP, DBIL, LIPID #### [facility] [address] [place] [address] Dr. Karla Lagos MCH (RBC) [Entitic mass] 31.1 pg Normal 25.9-34.0 [facility] Comment on above: Performed By: #### P HOS, URIC, MG, CMP, DBIL, LIPID #### [facility] [address] [place] [address] Dr. Karla Lagos MCHC (RBC) [Mass/Vol] 33.3 g/dL Normal 29.9-35.2 [facility] Comment on above: Performed By: #### P HOS, URIC, MG, CMP, DBIL, LIPID #### [facility] [address] [place] [address] Dr. Karla Lagos MCV (RBC) [Entitic vol] 93.6 fL Normal 80.0-94.0 [facility] Comment on above: Performed By: #### P HOS, URIC, MG, CMP, DBIL, LIPID #### [facility] [address] [place] [address] Dr. Karla Lagos MONO # 0.6 103/ul Normal 0.3-0.8 [facility] Comment on above: Performed By: #### P HOS, URIC, MG, CMP, DBIL, LIPID #### [facility] [address] [place] [address] Dr. Karla Lagos Monocytes/100 WBC (Bld) 10.1 % Normal 1.7-12.0 [facility] Comment on above: Performed By: #### P HOS, URIC, MG, CMP, DBIL, LIPID #### [facility] [address] [place] [address] Dr. Karla Lagos NEUT # 4.2 103/ul Normal 1.4-6.5 [facility] Comment on above: Performed By: #### P HOS, URIC, MG, CMP, DBIL, LIPID #### [facility] [address] [place] [address] Dr. Karla Lagos Neutrophils/100 WBC (Bld) 70.0 % Normal 43.0-75.0 [facility] Comment on above: Performed By: #### P HOS, URIC, MG, CMP, DBIL, LIPID #### [facility] [address] [place] [address] Dr. Karla Lagos Platelet mean volume (Bld) [Entitic vol] 10.2 fL Normal 9.5-13.5 [facility] Comment on above: Performed By: #### P HOS, URIC, MG, CMP, DBIL, LIPID #### [facility] [address] [place] [address] Dr. Karla Lagos PLT 226 103/ul Normal 150-450 [facility] Comment on above: Performed By: #### P HOS, URIC, MG, CMP, DBIL, LIPID #### [facility] [address] [address] [address] Karla Lagos RBC 5.14 106/ul Normal 4.70-6.10 [facility] Comment on above: Performed By: #### P HOS, URIC, MG, CMP, DBIL, LIPID #### [facility] [address] [address] [address] Karla Lagos WBC 6.0 103/ul Normal 4.0-11.0 [facility] Comment on above: Performed By: #### P HOS, URIC, MG, CMP, DBIL, LIPID #### [facility] [address] [address] [address] Karla Lagos LIPID PROFILEon 02-24-2022 CHOL-HDL RATIO NORM SEE BELOW Normal [facility] Comment on above: Result Comment: 3.3 - 4.4 LOW RISK 4.4 - 7.1 AVERAGE RISK 7.1 - 11.0 MODERATE RISK >11.0 HIGH RISK Performed By: #### P HOS, URIC, MG, CMP, DBIL, LIPID #### [facility] [address] [address] [address] Karla Lagos Cholesterol [Mass/Vol] 132 mg/dL Normal <=200 [facility] Comment on above: Performed By: #### P HOS, URIC, MG, CMP, DBIL, LIPID #### [facility] [address] [address] [address] Karla Lagos Cholesterol in HDL [Mass/Vol] 50 mg/dL Normal 40-60 [facility] Comment on above: Performed By: #### P HOS, URIC, MG, CMP, DBIL, LIPID #### [facility] [address] [address] [address] Karla Lagos Cholesterol in LDL [Mass/Vol] 54.6 mg/dL Normal [facility] Comment on above: Performed By: #### P HOS, URIC, MG, CMP, DBIL, LIPID #### [facility] [address] [address] [address] Karla Lagos Cholesterol.total/C holesterol in HDL [Mass ratio] 2.6 {ratio} Normal [facility] Comment on above: Performed By: #### P HOS, URIC, MG, CMP, DBIL, LIPID #### [facility] [address] [address] [address] Karla Lagos HDL NORMAL > or = 60 mg/dl - LO W CARDIOVASCULAR RISK <40 mg/dl - HIGH CARDIOVASCULAR RISK Normal [facility] Comment on above: Performed By: #### P HOS, URIC, MG, CMP, DBIL, LIPID #### [facility] [address] [address] [address] Karla Lagos LDL CALC NORMAL SEE BELOW Normal [facility] Comment on above: Result Comment: <100 mg/dl OPTIMAL 100 - 129 mg/dl NEAR OR ABOVE OPTIMAL 130 - 159 mg/dl BORDERLINE HIGH 160 - 189 mg/dl HIGH >190 mg/dl VERY HIGH Performed By: #### P HOS, URIC, MG, CMP, DBIL, LIPID #### [facility] [address] [address] [address] Karla Lagos Triglyceride [Mass/Vol] 137 mg/dL Normal <=150 [facility] Comment on above: Performed By: #### P HOS, URIC, MG, CMP, DBIL, LIPID #### [facility] [address] [address] [address] Karla Lagos VLDL CALC 27.4 mg/dL Normal [facility] Comment on above: Performed By: #### P HOS, URIC, MG, CMP, DBIL, LIPID #### [facility] [address] [address] [address] Karla Lagos MAGNESIUMon 02-24-2022 Magnesium [Mass/Vol] 1.5 mg/dL Critically low 1.8-2.4 [facility] Comment on above: Performed By: #### P HOS, URIC, MG, CMP, DBIL, LIPID #### [facility] [address] [address] [address] Karla Lagos PHOSPHORUSon 02-24-2022 Phosphate [Mass/Vol] 3.2 mg/dL Normal 2.6-4.7 [facility] Comment on above: Performed By: #### P HOS, URIC, MG, CMP, DBIL, LIPID #### [facility] [address] [place] [address] Dr. Karla Lagos PROF 14(COMP METB)on 022 Albumin [Mass/Vol] 4.1 g/dL Normal 3.4-5.0 [facility] Comment on above: Performed By: #### P HOS, URIC, MG, CMP, DBIL, LIPID #### [facility] [address] [place] [address] Dr. Karla Lagos Albumin/Globulin [Mass ratio] 1.4 {ratio} Normal [facility] Comment on above: Performed By: #### P HOS, URIC, MG, CMP, DBIL, LIPID #### [facility] [address] [place] [address] Dr. Karla Lagos ALP [Catalytic activity/Vol] 73 U/L Normal 46-116 [facility] Comment on above: Performed By: #### P HOS, URIC, MG, CMP, DBIL, LIPID #### [facility] [address] [place] [address] Dr. Karla Lagos ALT [Catalytic activity/Vol] 27 U/L Normal 16-63 [facility] Comment on above: Performed By: #### P HOS, URIC, MG, CMP, DBIL, LIPID #### [facility] [address] [place] [address] Dr. Karla Lagos Anion gap [Moles/Vol] 11.7 mmol/L Normal [facility] Comment on above: Performed By: #### P HOS, URIC, MG, CMP, DBIL, LIPID #### [facility] [address] [place] [address] Dr. Karla Lagos AST [Catalytic activity/Vol] 16 U/L Normal 15-37 [facility] Comment on above: Performed By: #### P HOS, URIC, MG, CMP, DBIL, LIPID #### [facility] [address] [place] [address] Dr. Karla Lagos Bilirubin [Mass/Vol] 0.8 mg/dL Normal 0.2-1.0 [facility] Comment on above: Performed By: #### P HOS, URIC, MG, CMP, DBIL, LIPID #### [facility] [address] [address] [address] Karla Lagos Calcium [Mass/Vol] 9.1 mg/dL Normal 8.5-10.1 [facility] Comment on above: Performed By: #### P HOS, URIC, MG, CMP, DBIL, LIPID #### [facility] [address] [place] [address] Dr. Karla Lagos Chloride [Moles/Vol] 104 mmol/L Normal 98-107 [facility] Comment on above: Performed By: #### P HOS, URIC, MG, CMP, DBIL, LIPID #### [facility] [address] [place] [address] Dr. Karla Lagos CO2 [Moles/Vol] 29.4 mmol/L Normal 21.0-32.0 [facility] Comment on above: Performed By: #### P HOS, URIC, MG, CMP, DBIL, LIPID #### [facility] [address] [place] [address] Dr. Karla Lagos Creatinine [Mass/Vol] 1.27 mg/dL Normal 0.70-1.30 [facility] Comment on above: Performed By: #### P HOS, URIC, MG, CMP, DBIL, LIPID #### [facility] [address] [place] [address] Dr. Karla Lagos EGFR-AF FILIPINO >60 Normal >=60 [facility] Comment on above: Performed By: #### P HOS, URIC, MG, CMP, DBIL, LIPID #### [facility] [address] [place] [address] Dr. Karla Lagos EGFR-NON AF FILIPINO 58 mL/min/1.73m2 Critically low >=60 [facility] Comment on above: Performed By: #### P HOS, URIC, MG, CMP, DBIL, LIPID #### [facility] [address] [place] [address] Dr. Karla Lagos Globulin (S) [Mass/Vol] 2.9 g/dL Normal [facility] Comment on above: Performed By: #### P HOS, URIC, MG, CMP, DBIL, LIPID #### [facility] [address] [address] [address] Karla Lagos Glucose [Mass/Vol] 113 mg/dL Critically high 74-106 T [facility] Comment on above: Performed By: #### P HOS, URIC, MG, CMP, DBIL, LIPID #### [facility] [address] [place] [address] Dr. Karla Lagos Potassium [Moles/Vol] 4.1 mmol/L Normal 3.5-5.1 [facility] Comment on above: Performed By: #### P HOS, URIC, MG, CMP, DBIL, LIPID #### [facility] [address] [address] [address] Karal Lagos Protein [Mass/Vol] 7.0 g/dL Normal 6.4-8.2 [facility] Comment on above: Performed By: #### P HOS, URIC, MG, CMP, DBIL, LIPID #### [facility] [address] [address] [address] Karla Lagos Sodium [Moles/Vol] 141 mmol/L Normal 136-145 [facility] Comment on above: Performed By: #### P HOS, URIC, MG, CMP, DBIL, LIPID #### [facility] [address] [place] [address] Dr. Karla Lagos Urea nitrogen [Mass/Vol] 18.0 mg/dL Normal 7.0-18.0 [facility] Comment on above: Performed By: #### P HOS, URIC, MG, CMP, DBIL, LIPID #### [facility] [address] [place] [address] Dr. Karla Lagos Urea nitrogen/Creatinine [Mass ratio] 14.2 mg/mg Normal [facility] Comment on above: Performed By: #### P HOS, URIC, MG, CMP, DBIL, LIPID #### [facility] [address] [place] [address] Dr. Karla Lagos URIC ACID SERUMon 02-24-2022 Urate [Mass/Vol] 6.0 mg/dL Normal 3.5-7.2 [facility] Comment on above: Performed By: #### P HOS, URIC, MG, CMP, DBIL, LIPID #### [facility] [address] [place], [place] [address] Dr. Karla Lagos XR Chest 2 Views*on 01-14-20 22 XR Chest 2 Views* FINDINGS: Comparison made with prior examination of September 24, 2020. Improved aeration with no persistent parenchymal consolidation. No pleural or pericardial effusions. Normal cardiac silhouette size. Sternotomy wires. Left central cardiac pacemaker. IMPRESSION: 1. Minimal residual post-inflammatory sequela. Report reported and signed by Anjum Remy on 01/13/2022 1143 Normal [facility] Specialist ECHOCARDIO M/2D COMPLETEon 0 09-28-2021 ECHOCARDIO M/2D COMPLETE Patient: VISHAL DUKE Exam Date: 09/28/2021 : 1960 Gender:M Ordering : DR FEDERICO CHESTER M.D. Admission #: [id number] Family : DR ROSA M GONZALES M.D. Order #: [id number] CLICK HERE TO VIEW EXAM ECHOCARDIOGRAM REPORT PROCEDURE: CARDIO PULMONARY ECHOCARDIO M/2D COMP INDICATIONS: Ischemic congestive cardiomyopathy, CABG x 3, PTCA, AICD, hypertension COMPARISON: None. DESCRIPTION: COMPLETE ECHOCARDIOGRAM Real-time transthoracic echocardiography with 2D, M-mode, spectral and color flow Doppler performed. QUALITY: Technical quality was good. LEFT VENTRICLE: Normal chamber size. Mild concentric left ventricular hypertrophy. Systolic function is mildly to moderately reduced with wall motion abnormalities. There is akinesis of the mid and distal septum with hypokinesis of the distal anterior wall and apex. LV EF: Mildly to moderately reduced left ventricular ejection fraction, (35-40%). DIASTOLIC: Grade I diastolic dysfunction. ATRIAL SEPTUM: LEFT ATRIUM: Normal chamber size. RIGHT ATRIUM: Normal chamber size. RIGHT VENTRICLE: Normal chamber size. Normal right ventricular systolic function. Pacer wire present. TRICUSPID VALVE: Normal mobility and thickness. No stenosis with trivial regurgitation. No evidence of pulmonary hypertension. RVSP 25 mmHg MITRAL VALVE: Normal mobility and thickness. No evidence of mitral valve stenosis. Trivial mitral regurgitation. AORTIC VALVE: Normal trileaflet appearance. Thickened aortic valve. Normal leaflet mobility. No evidence of aortic valve stenosis. No aortic regurgitation. AORTIC ROOT: Normal diameter and appearance. PULMONIC VALVE: Normal thickness and mobility. No stenosis. No regurgitation. PERICARDIUM: No evidence of pericardial effusion. IVC: PLEURA: CONCLUSION: 1. Left ventricular systolic function is mildly to moderately reduced with segmental wall motion abnormalities. LVEF is 35 to 40%. 2. Normal right ventricular systolic function. 3. No significant valvular dysfunction. 4. Normal right-sided pressures. 5. No pericardial effusion. Adult Echocardiography Procedure Report Left Ventricle LVEDD (3.7 - 5.6 cm): 4.33 cm LVESD (2.2 - 4.0 cm): 3.43 cm LVIVS thickness (0.6 - 1.2 cm): 1.24 cm LVPW thickness (0.5 - 1.0 cm): 1.18 cm e': 8.33 cm/s E - e': 5.80 Left Ventricular Ejection Fraction: 35-40 % Left Atrium LA Volume Index (2D A2C): 27.60 ml/m2 Left Atrium Systolic Dimension: 5.00 cm Left Atrium Systolic Area(A2C): 20.80 cm2 Left Atrium Systolic Area(A4C): 20.50 cm2 Left Atrium Systolic Volume(A2C): 89531 mm3 Left Atrium Systolic Volume(A4C): 96061 mm3 Mitral Valve MV E to A Ratio: 0.80 Mitral Valve A-Wave Peak Velocity: 57.80 cm/s Mitral Valve E-Wave Peak Velocity: 48.40 cm/s Deceleration Time: 320 ms Right Ventricle Aorta AO Root Diam: 3.90 cm Aortic Valve Peak Velocity(Antegrade Flow): 110.00 cm/s Peak Gradient(Antegrade Flow): 5 mm[Hg] Tricuspid Valve Pulmonic Valve Peak Velocity: 86.30 cm/s Peak Gradient: 3 mm[Hg] Right Atrium Dictated by: Zuly Frazier M.D. on 09/28/2021 at 19:31 Approved by: Zuly Frazier M.D. on 09/28/2021 at 19:38 Normal [facility] Bilirubin, Directon 09-28-19 22 DBIL <0.2 Normal [facility] Personal Service Representative Comment on above: Result Comment: Refe rence range change 03/03/2017. Prior reference range 0.1-0.3 mg/dL. Performed By: #### C BCAD, MG, URIC, LIPD, PHOS, CMP, DBIL #### [facility] [address] [place], [place] [id number] Complete Blood Count with Au to Diffon 09-27-2021 Basophils (Bld) [#/Vol] 0.06 10*3/uL Normal 0.00-0.20 [facility] Personal Service Representative Comment on above: Performed By: #### C BCAD, MG, URIC, LIPD, PHOS, CMP, DBIL #### [facility] [address] [place], [place] [id number] Basophils/100 WBC (Bld) 1.0 % Normal [facility] Personal Service Representative Comment on above: Performed By: #### C BCAD, MG, URIC, LIPD, PHOS, CMP, DBIL #### [facility] [address] [place], [place] [id number] Eosinophils (Bld) [#/Vol] 0.09 10*3/uL Normal 0.02-0.50 [facility] Personal Service Representative Comment on above: Performed By: #### C BCAD, MG, URIC, LIPD, PHOS, CMP, DBIL #### [facility] [address] [place], [place] [id number] Eosinophils/100 WBC (Bld) 1.5 % Normal [facility] Personal Service Representative Comment on above: Performed By: #### C BCAD, MG, URIC, LIPD, PHOS, CMP, DBIL #### [facility] [address] [place], [place] [id number] Erythrocyte distribution width (RBC) [Ratio] 14.1 % Normal 11.0-15.0 [facility] Personal Service Representative Comment on above: Performed By: #### C BCAD, MG, URIC, LIPD, PHOS, CMP, DBIL #### [facility] [address] [place], [place] [id number] Hematocrit (Bld) [Volume fraction] 51.6 % High 38.5-50.0 [facility] Personal Service Representative Comment on above: Performed By: #### C BCAD, MG, URIC, LIPD, PHOS, CMP, DBIL #### [facility] [address] [place], [place] [id number] Hemoglobin (Bld) [Mass/Vol] 16.5 g/dL Normal 13.0-17.1 [facility] Comment on above: Performed By: #### C BCAD, MG, URIC, LIPD, PHOS, CMP, DBIL #### [facility] [address] [place], [place] [id number] Lymphocytes (Bld) [#/Vol] 1.0 10*3/uL Normal 0.9-3.9 [facility] Comment on above: Performed By: #### C BCAD, MG, URIC, LIPD, PHOS, CMP, DBIL #### [facility] [address] [place], [place] [id number] Lymphocytes/100 WBC (Bld) 16.3 % Normal [facility] Specialist Comment on above: Performed By: #### C BCAD, MG, URIC, LIPD, PHOS, CMP, DBIL #### [facility] [address] [place], [place] [id number] MCH (RBC) [Entitic mass] 29.9 pg Normal 27.0-33.0 [facility] Comment on above: Performed By: #### C BCAD, MG, URIC, LIPD, PHOS, CMP, DBIL #### [facility] [address] [place], [place] [id number] MCHC (RBC) [Mass/Vol] 32.0 g/dL Normal 32.0-36.0 [facility] Comment on above: Performed By: #### C BCAD, MG, URIC, LIPD, PHOS, CMP, DBIL #### [facility] [address] [place], [place] [id number] MCV (RBC) [Entitic vol] 94 fL Normal 80-100 [facility] Special[facility] Comment on above: Performed By: #### C BCAD, MG, URIC, LIPD, PHOS, CMP, DBIL #### [facility] [address] [place], [place] [id number] Monocytes (Bld) [#/Vol] 0.7 10*3/uL Normal 0.2-0.9 [facility] Comment on above: Performed By: #### C BCAD, MG, URIC, LIPD, PHOS, CMP, DBIL #### [facility] [address] [place], [place] [id number] Monocytes/100 WBC (Bld) 11.1 % Normal [facility] Comment on above: Performed By: #### C BCAD, MG, URIC, LIPD, PHOS, CMP, DBIL #### [facility] [address] [place], [place] [id number] Neutrophils (Bld) [#/Vol] 4.2 10*3/uL Normal 1.5-7.8 [facility] Special[facility] Comment on above: Performed By: #### C BCAD, MG, URIC, LIPD, PHOS, CMP, DBIL #### [facility] [address] [place], [place] [id number] Neutrophils/100 WBC (Bld) 69.8 % Normal [facility] Specialist Comment on above: Performed By: #### C BCAD, MG, URIC, LIPD, PHOS, CMP, DBIL #### [facility] [address] [place], [place] [id number] Platelet mean volume (Bld) [Entitic vol] 10.80 fL Normal 7.50-12.50 [facility] Special[facility] Comment on above: Performed By: #### C BCAD, MG, URIC, LIPD, PHOS, CMP, DBIL #### [facility] [address] [place], [place] [id number] Platelets (Bld) [#/Vol] 247 10*3/uL Normal 140-400 [facility] Special[facility] Comment on above: Performed By: #### C BCAD, MG, URIC, LIPD, PHOS, CMP, DBIL #### [facility] [address] [place], [place] [id number] RBC (Bld) [#/Vol] 5.52 10*6/uL Normal 4.20-5.80 [facility] Specialist Comment on above: Performed By: #### C BCAD, MG, URIC, LIPD, PHOS, CMP, DBIL #### [facility] [address] [place], [place] [id number] RDW-SD 48.9 fL Normal 37.0-50.0 [facility] Specialist Comment on above: Performed By: #### C BCAD, MG, URIC, LIPD, PHOS, CMP, DBIL #### [facility] [address] [place], [place] [id number] WBC (Bld) [#/Vol] 6.0 10*3/uL Normal 3.8-11.0 [place] [facility] [place] [facility] Representative Comment on above: Performed By: #### C BCAD, MG, URIC, LIPD, PHOS, CMP, DBIL #### [facility] [address] [place], [place] [id number] Comprehensive Metabolic Pane [facility] 09-27-2021 Albumin [Mass/Vol] 5.0 g/dL Normal 3.6-5.1 [facility] [place] [facility] Representative Comment on above: Performed By: #### C BCAD, MG, URIC, LIPD, PHOS, CMP, DBIL #### [facility] [address] [place], [place] [id number] Albumin/Globulin [Mass ratio] 2.8 {ratio} High 1.0-2.5 [facility] Personal Service Representative Comment on above: Performed By: #### C BCAD, MG, URIC, LIPD, PHOS, CMP, DBIL #### [facility] [address] [place], [place] [id number] ALP [Catalytic activity/Vol] 79 U/L Normal 40-129 [facility] Specialist Comment on above: Performed By: #### C BCAD, MG, URIC, LIPD, PHOS, CMP, DBIL #### [facility] [address] [place], [place] [id number] ALT [Catalytic activity/Vol] 29 U/L Normal 9-46 [facility] Specialist Comment on above: Result Comment: 03/17 Female reference range changed. Performed By: #### C BCAD, MG, URIC, LIPD, PHOS, CMP, DBIL #### [facility] [address] [place], [place] [id number] Anion gap [Moles/Vol] 23 mmol/L High 12-20 [facility] Personal Service Representative Comment on above: Result Comment: Effe ctive 04/22/2019 reference range changed. Performed By: #### C BCAD, MG, URIC, LIPD, PHOS, CMP, DBIL #### [facility] [address] [place], [place] [id number] AST [Catalytic activity/Vol] 25 U/L Normal 10-40 [facility] Comment on above: Performed By: #### C BCAD, MG, URIC, LIPD, PHOS, CMP, DBIL #### [facility] [address] [place], [place] [id number] Bilirubin [Mass/Vol] 0.66 mg/dL Normal 0.30-1.20 [facility] Specialist Comment on above: Performed By: #### C BCAD, MG, URIC, LIPD, PHOS, CMP, DBIL #### [facility] [address] [place], [place] [id number] BUN/CREA 18 Ratio Normal 6-22 [facility] Specialist Comment on above: Performed By: #### C BCAD, MG, URIC, LIPD, PHOS, CMP, DBIL #### [facility] [address] [place], [place] [id number] Calcium [Mass/Vol] 10.0 mg/dL Normal 8.6-10.2 [facility] Comment on above: Performed By: #### C BCAD, MG, URIC, LIPD, PHOS, CMP, DBIL #### [facility] [address] [place], [place] [id number] Chloride [Moles/Vol] 105 mmol/L Normal 98-107 [facility] Specialist Comment on above: Performed By: #### C BCAD, MG, URIC, LIPD, PHOS, CMP, DBIL #### [facility] [address] [place], [place] [id number] CO2 [Moles/Vol] 20 mmol/L Normal 20-31 [facility] Specialist Comment on above: Performed By: #### C BCAD, MG, URIC, LIPD, PHOS, CMP, DBIL #### [facility] [address] [place], [place] [id number] Creatinine [Mass/Vol] 1.2 mg/dL Normal 0.7-1.4 [facility] Special[facility] Comment on above: Performed By: #### C BCAD, MG, URIC, LIPD, PHOS, CMP, DBIL #### [facility] [address] [place], [place] [id number] eGFRAA 72 mL/min/1.73m2 Normal >60 [facility] Personal Service Representative Comment on above: Performed By: #### C BCAD, MG, URIC, LIPD, PHOS, CMP, DBIL #### [facility] [address] [place], [place] [id number] eGFRNAA 59 mL/min/1.73m2 Low >60 [facility] Personal Service Representative Comment on above: Performed By: #### C BCAD, MG, URIC, LIPD, PHOS, CMP, DBIL #### [facility] [address] [place], [place] [id number] Globulin (S) [Mass/Vol] 1.8 g/dL Low 1.9-3.7 [facility] Personal Service Representative Comment on above: Performed By: #### C BCAD, MG, URIC, LIPD, PHOS, CMP, DBIL #### [facility] [address] [place], [place] [id number] Glucose [Mass/Vol] 121 mg/dL High 65-99 [facility] [place] Personal Service Representative Comment on above: Result Comment: For FASTING Glucose --- ADA reference ranges: Normal 65-99 mg/dl Prediabetes 100-125 Diabetes >/= 126 Performed By: #### C BCAD, MG, URIC, LIPD, PHOS, CMP, DBIL #### [facility] [address] [place], [place] [id number] Potassium [Moles/Vol] 4.5 mmol/L Normal 3.5-5.5 [facility] Personal Service Representative Comment on above: Performed By: #### C BCAD, MG, URIC, LIPD, PHOS, CMP, DBIL #### [facility] [address] [place], [place] [id number] Protein [Mass/Vol] 6.8 g/dL Normal 6.1-8.1 [facility] [place] Personal Service Representative Comment on above: Performed By: #### C BCAD, MG, URIC, LIPD, PHOS, CMP, DBIL #### [facility] [address] [place], [place] [id number] Sodium [Moles/Vol] 143 mmol/L Normal 135-146 [facility] [place] Personal Service Representative Comment on above: Performed By: #### C BCAD, MG, URIC, LIPD, PHOS, CMP, DBIL #### [facility] [address] [facility] [place]Note 2[place], [place] [id number] Urea nitrogen [Mass/Vol] 23 mg/dL Normal 7-25 [facility] Personal Service Representative Comment on above: Performed By: #### C BCAD, MG, URIC, LIPD, PHOS, CMP, DBIL #### [facility] [address] [facility] [place] [id number] Lipid Panelon 09-27-2021 Cholesterol [Mass/Vol] 131 mg/dL Normal 125-200 [facility] Specialist Comment on above: Result Comment: Low risk < 200mg/dL Borderline risk 201-239 mg/dl High risk > or equal to 240 Performed By: #### C BCAD, MG, URIC, LIPD, PHOS, CMP, DBIL #### [facility] [address] [place], [place] [id number] Cholesterol in HDL [Mass/Vol] 43 mg/dL Normal >40 [facility] Personal Service Representative Comment on above: Result Comment: High Cardiovascular Risk HDL <40 mg/dL Low Cardiovascular Risk HDL > or equal to 60 mg/dl Performed By: #### C BCAD, MG, URIC, LIPD, PHOS, CMP, DBIL #### [facility] [address] [place], [place] [id number] Cholesterol in LDL [Mass/Vol] 52 mg/dL Normal [facility] Specialist Comment on above: Result Comment: LDL ATP III CLASSIFICATION LDL less than 100 mg/dl Optimal LDL 100-129 mg/dl Near or above optimal LDL 130-159 Borderline high LDL 160-189 High LDL greater than 189 mg/dl Very High Performed By: #### C BCAD, MG, URIC, LIPD, PHOS, CMP, DBIL #### [facility] [address] [facility] [id number] Cholesterol in VLDL [Mass/Vol] 36 mg/dL Normal [facility] Specialist Comment on above: Performed By: #### C BCAD, MG, URIC, LIPD, PHOS, CMP, DBIL #### [facility] [address] [facility] [place] [id number] Cholesterol.total/C holesterol in HDL [Mass ratio] 3 {ratio} Normal [facility] Personal Service Representative Comment on above: Performed By: #### C BCAD, MG, URIC, LIPD, PHOS, CMP, DBIL #### [facility] [address] [place], [place] [id number] Triglyceride [Mass/Vol] 180 mg/dL High 30-150 [facility] Personal Service Representative Comment on above: Result Comment: TRIG ATPIII CLASSIFICATIONS TRIG less than 150 mg/dl Normal TRIG 150-199 mg/dl Borderline High TRIG 200-500 mg/dl High TRIG greather than 500 mg/dl Very High Performed By: #### C BCAD, MG, URIC, LIPD, PHOS, CMP, DBIL #### [facility] [address] [place], [place] [id number] Magnesiumon 09-27-2021 Magnesium [Mass/Vol] 1.9 mg/dL Normal 1.5-2.3 [facility] Personal Service Representative Comment on above: Performed By: #### C BCAD, MG, URIC, LIPD, PHOS, CMP, DBIL #### [facility] [address] [place], [place] [id number] Phosphoruson 09-27-2021 Phosphate [Mass/Vol] 3.6 mg/dL Normal 2.2-4.4 [facility] Personal Service Representative Comment on above: Performed By: #### C BCAD, MG, URIC, LIPD, PHOS, CMP, DBIL #### [facility] [address] [place], [place] [id number] Uric Acidon 09-27-2021 URIC 6.5 mg/dL Normal 4.0-8.0 [facility] Personal Service Representative Comment on above: Result Comment: Refe rence range change 03/03/2017. Prior reference range F 2.4-5.7mg/dL. M 3.4-7.0 mg/dL. Performed By: #### C BCAD, MG, URIC, LIPD, PHOS, CMP, DBIL #### [facility] [address] [place], [place] [id number] Bilirubin, Directon 08-24-20 22 DBIL <0.2 Normal [facility] Personal Service Representative Comment on above: Result Comment: Refe rence range change 03/03/2017. Prior reference range 0.1-0.3 mg/dL. Performed By: #### C BCAD, MG, URIC, LIPD, PHOS, CMP, DBIL #### [facility] [address] [place], [place] [id number] Complete Blood Count with Au to Diffon 08-24-2021 Basophils (Bld) [#/Vol] 0.06 10*3/uL Normal 0.00-0.20 [facility] Specialist Comment on above: Performed By: #### C BCAD, MG, URIC, LIPD, PHOS, CMP, DBIL #### [facility] [address] [place], [place] [id number] Basophils/100 WBC (Bld) 1.1 % Normal [facility] Personal Service Representative Comment on above: Performed By: #### C BCAD, MG, URIC, LIPD, PHOS, CMP, DBIL #### [facility] [address] [place], [place] [id number] Eosinophils (Bld) [#/Vol] 0.10 10*3/uL Normal 0.02-0.50 [facility] Personal Service Representative Comment on above: Performed By: #### C BCAD, MG, URIC, LIPD, PHOS, CMP, DBIL #### [facility] [address] [place], [place] [id number] Eosinophils/100 WBC (Bld) 1.8 % Normal [facility] Personal Service Representative Comment on above: Performed By: #### C BCAD, MG, URIC, LIPD, PHOS, CMP, DBIL #### [facility] [address] [place], [place] [id number] Erythrocyte distribution width (RBC) [Ratio] 14.5 % Normal 11.0-15.0 [facility] Personal Service Representative Comment on above: Performed By: #### C BCAD, MG, URIC, LIPD, PHOS, CMP, DBIL #### [facility] [address] [place], [place] [id number] Hematocrit (Bld) [Volume fraction] 50.4 % High 38.5-50.0 [facility] Personal Service Representative Comment on above: Performed By: #### C BCAD, MG, URIC, LIPD, PHOS, CMP, DBIL #### [facility] [address] [place], [place] [id number] Hemoglobin (Bld) [Mass/Vol] 16.4 g/dL Normal 13.0-17.1 [facility] Specialist Comment on above: Performed By: #### C BCAD, MG, URIC, LIPD, PHOS, CMP, DBIL #### [facility] [address] [place], [place] [id number] Lymphocytes (Bld) [#/Vol] 0.9 10*3/uL Normal 0.9-3.9 [facility] Specialist Comment on above: Performed By: #### C BCAD, MG, URIC, LIPD, PHOS, CMP, DBIL #### [facility] [address] [place], [place] [id number] Lymphocytes/100 WBC (Bld) 15.2 % Normal [facility] Specialist Comment on above: Performed By: #### C BCAD, MG, URIC, LIPD, PHOS, CMP, DBIL #### [facility] [address] [place], [place] [id number] MCH (RBC) [Entitic mass] 30.5 pg Normal 27.0-33.0 [facility] Specialist Comment on above: Performed By: #### C BCAD, MG, URIC, LIPD, PHOS, CMP, DBIL #### [facility] [address] [place], [place] [id number] MCHC (RBC) [Mass/Vol] 32.5 g/dL Normal 32.0-36.0 [facility] Specialist Comment on above: Performed By: #### C BCAD, MG, URIC, LIPD, PHOS, CMP, DBIL #### [facility] [address] [place], [place] [id number] MCV (RBC) [Entitic vol] 94 fL Normal 80-100 [facility] Specialist Comment on above: Performed By: #### C BCAD, MG, URIC, LIPD, PHOS, CMP, DBIL #### [facility] [address] [place], [place] [id number] Monocytes (Bld) [#/Vol] 0.7 10*3/uL Normal 0.2-0.9 [facility] Specialist Comment on above: Performed By: #### C BCAD, MG, URIC, LIPD, PHOS, CMP, DBIL #### [facility] [address] [place], [place] [id number] Monocytes/100 WBC (Bld) 12.7 % Normal [facility] Comment on above: Performed By: #### C BCAD, MG, URIC, LIPD, PHOS, CMP, DBIL #### [facility] [address] [place], [place] [id number] Neutrophils (Bld) [#/Vol] 3.9 10*3/uL Normal 1.5-7.8 [facility] Comment on above: Performed By: #### C BCAD, MG, URIC, LIPD, PHOS, CMP, DBIL #### [facility] [address] [place], [place] [id number] Neutrophils/100 WBC (Bld) 68.7 % Normal [facility] Comment on above: Performed By: #### C BCAD, MG, URIC, LIPD, PHOS, CMP, DBIL #### [facility] [address] [place], [place] [id number] Platelet mean volume (Bld) [Entitic vol] 11.20 fL Normal 7.50-12.50 [facility] Specialist Comment on above: Performed By: #### C BCAD, MG, URIC, LIPD, PHOS, CMP, DBIL #### [facility] [address] [place], [place] [id number] Platelets (Bld) [#/Vol] 230 10*3/uL Normal 140-400 [facility] Specialist Comment on above: Performed By: #### C BCAD, MG, URIC, LIPD, PHOS, CMP, DBIL #### [facility] [address] [place], [place] [id number] RBC (Bld) [#/Vol] 5.38 10*6/uL Normal 4.20-5.80 [facility] Specialist Comment on above: Performed By: #### C BCAD, MG, URIC, LIPD, PHOS, CMP, DBIL #### [facility] [address] [place], [place] [id number] RDW-SD 49.1 fL Normal 37.0-50.0 [facility] Personal Service Representative Comment on above: Performed By: #### C BCAD, MG, URIC, LIPD, PHOS, CMP, DBIL #### [facility] [address] [place], [place] [id number] WBC (Bld) [#/Vol] 5.6 10*3/uL Normal 3.8-11.0 [facility] [place] Personal Service Representative Comment on above: Performed By: #### C BCAD, MG, URIC, LIPD, PHOS, CMP, DBIL #### [facility] [address] [place], [place] [id number] Comprehensive Metabolic Pane nitin 08-24-2021 Albumin [Mass/Vol] 5.0 g/dL Normal 3.6-5.1 [facility] [place] Personal Service Representative Comment on above: Performed By: #### C BCAD, MG, URIC, LIPD, PHOS, CMP, DBIL #### [facility] [address] [place], [place] [id number] Albumin/Globulin [Mass ratio] 2.6 {ratio} High 1.0-2.5 [facility] Personal Service Representative Comment on above: Performed By: #### C BCAD, MG, URIC, LIPD, PHOS, CMP, DBIL #### [facility] [address] [place], [place] [id number] ALP [Catalytic activity/Vol] 75 U/L Normal 40-129 [facility] Personal Service Representative Comment on above: Performed By: #### C BCAD, MG, URIC, LIPD, PHOS, CMP, DBIL #### [facility] [address] [place], [place] [id number] ALT [Catalytic activity/Vol] 30 U/L Normal 9-46 [facility] Personal Service Representative Comment on above: Result Comment: 03/17 Female reference range changed. Performed By: #### C BCAD, MG, URIC, LIPD, PHOS, CMP, DBIL #### [facility] [address] [place], [place] [id number] Anion gap [Moles/Vol] 18 mmol/L Normal 12-20 [facility] Personal Service Representative Comment on above: Result Comment: Effe ctive 04/22/2019 reference range changed. Performed By: #### C BCAD, MG, URIC, LIPD, PHOS, CMP, DBIL #### [facility] [address] [place], [place] [id number] AST [Catalytic activity/Vol] 26 U/L Normal 10-40 [facility] Specialist Comment on above: Performed By: #### C BCAD, MG, URIC, LIPD, PHOS, CMP, DBIL #### [facility] [address] [place], [place] [id number] Bilirubin [Mass/Vol] 0.67 mg/dL Normal 0.30-1.20 [facility] Specialist Comment on above: Performed By: #### C BCAD, MG, URIC, LIPD, PHOS, CMP, DBIL #### [facility] [address] [place], [place] [id number] BUN/CREA 19 Ratio Normal 6-22 [facility] Specialist Comment on above: Performed By: #### C BCAD, MG, URIC, LIPD, PHOS, CMP, DBIL #### [facility] [address] [place], [place] [id number] Calcium [Mass/Vol] 9.9 mg/dL Normal 8.6-10.2 [facility] Comment on above: Performed By: #### C BCAD, MG, URIC, LIPD, PHOS, CMP, DBIL #### [facility] [address] [place], [place] [id number] Chloride [Moles/Vol] 103 mmol/L Normal 98-107 [facility] Specialist Comment on above: Performed By: #### C BCAD, MG, URIC, LIPD, PHOS, CMP, DBIL #### [facility] [address] [place], [place] [id number] CO2 [Moles/Vol] 25 mmol/L Normal 20-31 [facility] Specialist Comment on above: Performed By: #### C BCAD, MG, URIC, LIPD, PHOS, CMP, DBIL #### [facility] [address] [place], [place] [id number] Creatinine [Mass/Vol] 1.1 mg/dL Normal 0.7-1.4 [facility] Specialist Comment on above: Performed By: #### C BCAD, MG, URIC, LIPD, PHOS, CMP, DBIL #### [facility] [address] [place], [place] [id number] eGFRAA 81 mL/min/1.73m2 Normal >60 [facility] Personal Service Representative Comment on above: Performed By: #### C BCAD, MG, URIC, LIPD, PHOS, CMP, DBIL #### [facility] [address] [place], [place] [id number] eGFRNAA 67 mL/min/1.73m2 Normal >60 [facility] Personal Service Representative Comment on above: Performed By: #### C BCAD, MG, URIC, LIPD, PHOS, CMP, DBIL #### [facility] [address] [place], [place] [id number] Globulin (S) [Mass/Vol] 1.9 g/dL Normal 1.9-3.7 [facility] Personal Service Representative Comment on above: Performed By: #### C BCAD, MG, URIC, LIPD, PHOS, CMP, DBIL #### [facility] [address] [place], [place] [id number] Glucose [Mass/Vol] 125 mg/dL High 65-99 [facility] [place] Personal Service Representative Comment on above: Result Comment: For FASTING Glucose --- ADA reference ranges: Normal 65-99 mg/dl Prediabetes 100-125 Diabetes >/= 126 Performed By: #### C BCAD, MG, URIC, LIPD, PHOS, CMP, DBIL #### [facility] [address] [place], [place] [id number] Potassium [Moles/Vol] 4.2 mmol/L Normal 3.5-5.5 [facility] Personal Service Representative Comment on above: Performed By: #### C BCAD, MG, URIC, LIPD, PHOS, CMP, DBIL #### [facility] [address] [place], [place] [id number] Protein [Mass/Vol] 6.9 g/dL Normal 6.1-8.1 [place] [facility] [place] Personal Service Representative Comment on above: Performed By: #### C BCAD, MG, URIC, LIPD, PHOS, CMP, DBIL #### [facility] [address] [place], [place] [id number] Sodium [Moles/Vol] 141 mmol/L Normal 135-146 [facility] Comment on above: Performed By: #### C BCAD, MG, URIC, LIPD, PHOS, CMP, DBIL #### [facility] [address] [place], [place] [id number] Urea nitrogen [Mass/Vol] 22 mg/dL Normal 7-25 [facility] Specialist Comment on above: Performed By: #### C BCAD, MG, URIC, LIPD, PHOS, CMP, DBIL #### [facility] [address] [place], [place] [id number] Hemoglobin A1Con 08-24-2021 EAG 134.11 Normal [facility] Comment on above: Performed By: #### C BCAD, MG, URIC, LIPD, PHOS, CMP, DBIL #### [facility] [address] [place], [place] [id number] HbA1c (Bld) [Mass fraction] 6.3 % High 4.0-6.0 [facility] Comment on above: Performed By: #### C BCAD, MG, URIC, LIPD, PHOS, CMP, DBIL #### [facility] [address] [place], [place] [id number] Lipid Panelon 08-24-2021 Cholesterol [Mass/Vol] 110 mg/dL Low 125-200 [facility] Specialist Comment on above: Result Comment: Low risk < 200mg/dL Borderline risk 201-239 mg/dl High risk > or equal to 240 Performed By: #### C BCAD, MG, URIC, LIPD, PHOS, CMP, DBIL #### [facility] [address] [place], [place] [id number] Cholesterol in HDL [Mass/Vol] 38 mg/dL Low >40 [facility] Specialist Comment on above: Result Comment: High Cardiovascular Risk HDL <40 mg/dL Low Cardiovascular Risk HDL > or equal to 60 mg/dl Performed By: #### C BCAD, MG, URIC, LIPD, PHOS, CMP, DBIL #### [facility] [address] [place], [place] [id number] Cholesterol in LDL [Mass/Vol] 46 mg/dL Normal [facility] Comment on above: Result Comment: LDL ATP III CLASSIFICATION LDL less than 100 mg/dl Optimal LDL 100-129 mg/dl Near or above optimal LDL 130-159 Borderline high LDL 160-189 High LDL greater than 189 mg/dl Very High Performed By: #### C BCAD, MG, URIC, LIPD, PHOS, CMP, DBIL #### [facility] [address] [place], [place] [id number] Cholesterol in VLDL [Mass/Vol] 26 mg/dL Normal [facility] Specialist Comment on above: Performed By: #### C BCAD, MG, URIC, LIPD, PHOS, CMP, DBIL #### [facility] [address] [place], [place] [id number] Cholesterol.total/C holesterol in HDL [Mass ratio] 3 {ratio} Normal [facility] Specialist Comment on above: Performed By: #### C BCAD, MG, URIC, LIPD, PHOS, CMP, DBIL #### [facility] [address] [place], [place] [id number] Triglyceride [Mass/Vol] 131 mg/dL Normal 30-150 [facility] Personal Service Representative Comment on above: Result Comment: TRIG ATPIII CLASSIFICATIONS TRIG less than 150 mg/dl Normal TRIG 150-199 mg/dl Borderline High TRIG 200-500 mg/dl High TRIG greather than 500 mg/dl Very High Performed By: #### C BCAD, MG, URIC, LIPD, PHOS, CMP, DBIL #### [facility] [address] [place], [place] [id number] Magnesiumon 08-24-2021 Magnesium [Mass/Vol] 2.0 mg/dL Normal 1.5-2.3 [facility] Specialist Comment on above: Performed By: #### C BCAD, MG, URIC, LIPD, PHOS, CMP, DBIL #### [facility] [address] [place], [place] [id number] Phosphoruson 08-24-2021 Phosphate [Mass/Vol] 3.5 mg/dL Normal 2.2-4.4 [facility] Specialist Comment on above: Performed By: #### C BCAD, MG, URIC, LIPD, PHOS, CMP, DBIL #### [facility] [address] [place], [place] [id number] Uric Acidon 08-24-2021 URIC 6.6 mg/dL Normal 4.0-8.0 [facility] Personal Service Representative Comment on above: Result Comment: Refe rence range change 03/03/2017. Prior reference range F 2.4-5.7mg/dL. M 3.4-7.0 mg/dL. Performed By: #### C BCAD, MG, URIC, LIPD, PHOS, CMP, DBIL #### [facility] [address] [place], [place] [id number] Bilirubin, Directon 07-30-19 22 DBIL <0.2 Normal [facility] Specialist Comment on above: Result Comment: Refe rence range change 03/03/2017. Prior reference range 0.1-0.3 mg/dL. Performed By: #### C BCAD, MG, URIC, LIPD, PHOS, CMP, DBIL #### [facility] [address] [place], [place] [id number] Complete Blood Count with Au to Diffon 07-29-2021 Basophils (Bld) [#/Vol] 0.07 10*3/uL Normal 0.00-0.20 [facility] Personal Service Representative Comment on above: Performed By: #### C BCAD, MG, URIC, LIPD, PHOS, CMP, DBIL #### [facility] [address] [place], [place] [id number] Basophils/100 WBC (Bld) 1.1 % Normal [facility] Personal Service Representative Comment on above: Performed By: #### C BCAD, MG, URIC, LIPD, PHOS, CMP, DBIL #### [facility] [address] [place], [place] [id number] Eosinophils (Bld) [#/Vol] 0.15 10*3/uL Normal 0.02-0.50 [facility] Personal Service Representative Comment on above: Performed By: #### C BCAD, MG, URIC, LIPD, PHOS, CMP, DBIL #### [facility] [address] [place], [place] [id number] Eosinophils/100 WBC (Bld) 2.4 % Normal [facility] Personal Service Representative Comment on above: Performed By: #### C BCAD, MG, URIC, LIPD, PHOS, CMP, DBIL #### [facility] [address] [place], [place] [id number] Erythrocyte distribution width (RBC) [Ratio] 14.0 % Normal 11.0-15.0 [facility] Specialist Comment on above: Performed By: #### C BCAD, MG, URIC, LIPD, PHOS, CMP, DBIL #### [facility] [address] [place], [place] [id number] Hematocrit (Bld) [Volume fraction] 50.3 % High 38.5-50.0 [facility] Specialist Comment on above: Performed By: #### C BCAD, MG, URIC, LIPD, PHOS, CMP, DBIL #### [facility] [address] [place], [place] [id number] Hemoglobin (Bld) [Mass/Vol] 16.5 g/dL Normal 13.0-17.1 [facility] Personal Service Representative Comment on above: Performed By: #### C BCAD, MG, URIC, LIPD, PHOS, CMP, DBIL #### [facility] [address] [place], [place] [id number] Lymphocytes (Bld) [#/Vol] 0.9 10*3/uL Normal 0.9-3.9 [facility] Personal Service Representative Comment on above: Performed By: #### C BCAD, MG, URIC, LIPD, PHOS, CMP, DBIL #### [facility] [address] [place], [place] [id number] Lymphocytes/100 WBC (Bld) 13.4 % Normal [facility] Specialist Comment on above: Performed By: #### C BCAD, MG, URIC, LIPD, PHOS, CMP, DBIL #### [facility] [address] [place], [place] [id number] MCH (RBC) [Entitic mass] 29.9 pg Normal 27.0-33.0 [facility] Specialist Comment on above: Performed By: #### C BCAD, MG, URIC, LIPD, PHOS, CMP, DBIL #### [facility] [address] [place], [place] [id number] MCHC (RBC) [Mass/Vol] 32.8 g/dL Normal 32.0-36.0 [facility] Personal Service Representative Comment on above: Performed By: #### C BCAD, MG, URIC, LIPD, PHOS, CMP, DBIL #### [facility] [address] [place], [place] [id number] MCV (RBC) [Entitic vol] 91 fL Normal 80-100 [facility] Specialist Comment on above: Performed By: #### C BCAD, MG, URIC, LIPD, PHOS, CMP, DBIL #### [facility] [address] [place], [place] [id number] Monocytes (Bld) [#/Vol] 0.5 10*3/uL Normal 0.2-0.9 [facility] Specialist Comment on above: Performed By: #### C BCAD, MG, URIC, LIPD, PHOS, CMP, DBIL #### [facility] [address] [place], [place] [id number] Monocytes/100 WBC (Bld) 8.5 % Normal [facility] Specialist Comment on above: Performed By: #### C BCAD, MG, URIC, LIPD, PHOS, CMP, DBIL #### [facility] [address] [place], [place] [id number] Neutrophils (Bld) [#/Vol] 4.7 10*3/uL Normal 1.5-7.8 [facility] Specialist Comment on above: Performed By: #### C BCAD, MG, URIC, LIPD, PHOS, CMP, DBIL #### [facility] [address] [place], [place] [id number] Neutrophils/100 WBC (Bld) 73.8 % Normal [facility] Personal Service Representative Comment on above: Performed By: #### C BCAD, MG, URIC, LIPD, PHOS, CMP, DBIL #### [facility] [address] [place], [place] [id number] Platelet mean volume (Bld) [Entitic vol] 10.40 fL Normal 7.50-12.50 [facility] Specialist Comment on above: Performed By: #### C BCAD, MG, URIC, LIPD, PHOS, CMP, DBIL #### [facility] [address] [place], [place] [id number] Platelets (Bld) [#/Vol] 266 10*3/uL Normal 140-400 [facility] Specialist Comment on above: Performed By: #### C BCAD, MG, URIC, LIPD, PHOS, CMP, DBIL #### [facility] [address] [place], [place] [id number] RBC (Bld) [#/Vol] 5.51 10*6/uL Normal 4.20-5.80 [facility] Specialist Comment on above: Performed By: #### C BCAD, MG, URIC, LIPD, PHOS, CMP, DBIL #### [facility] [address] [place], [place] [id number] RDW-SD 47.4 fL Normal 37.0-50.0 [facility] Specialist Comment on above: Performed By: #### C BCAD, MG, URIC, LIPD, PHOS, CMP, DBIL #### [facility] [address] [place], [place] [id number] WBC (Bld) [#/Vol] 6.3 10*3/uL Normal 3.8-11.0 [facility] Personal Service Representative Comment on above: Performed By: #### C BCAD, MG, URIC, LIPD, PHOS, CMP, DBIL #### [facility] [address] [place], [place] [id number] Comprehensive Metabolic Pane [facility] 07-29-2021 Albumin [Mass/Vol] 5.0 g/dL Normal 3.6-5.1 [facility] Personal Service Representative Comment on above: Performed By: #### C BCAD, MG, URIC, LIPD, PHOS, CMP, DBIL #### [facility] [address] [place], [place] [id number] Albumin/Globulin [Mass ratio] 2.6 {ratio} High 1.0-2.5 [facility] Personal Service Representative Comment on above: Performed By: #### C BCAD, MG, URIC, LIPD, PHOS, CMP, DBIL #### [facility] [address] [place], [place] [id number] ALP [Catalytic activity/Vol] 73 U/L Normal 40-129 [facility] Specialist Comment on above: Performed By: #### C BCAD, MG, URIC, LIPD, PHOS, CMP, DBIL #### [facility] [address] [place], [place] [id number] ALT [Catalytic activity/Vol] 27 U/L Normal 9-46 [facility] Comment on above: Result Comment: 03/17 Female reference range changed. Performed By: #### C BCAD, MG, URIC, LIPD, PHOS, CMP, DBIL #### [facility] [address] [place], [place] [id number] Anion gap [Moles/Vol] 18 mmol/L Normal 12-20 [facility] Comment on above: Result Comment: Effe ctive 04/22/2019 reference range changed. Performed By: #### C BCAD, MG, URIC, LIPD, PHOS, CMP, DBIL #### [facility] [address] [place], [place] [id number] AST [Catalytic activity/Vol] 23 U/L Normal 10-40 [facility] Comment on above: Performed By: #### C BCAD, MG, URIC, LIPD, PHOS, CMP, DBIL #### [facility] [address] [place], [place] [id number] Bilirubin [Mass/Vol] 0.68 mg/dL Normal 0.30-1.20 [facility] Comment on above: Performed By: #### C BCAD, MG, URIC, LIPD, PHOS, CMP, DBIL #### [facility] [address] [place], [place] [id number] BUN/CREA 16 Ratio Normal 6-22 [facility] Comment on above: Performed By: #### C BCAD, MG, URIC, LIPD, PHOS, CMP, DBIL #### [facility] [address] [place], [place] [id number] Calcium [Mass/Vol] 10.0 mg/dL Normal 8.6-10.2 [facility] Comment on above: Performed By: #### C BCAD, MG, URIC, LIPD, PHOS, CMP, DBIL #### [facility] [address] [place], [place] [id number] Chloride [Moles/Vol] 103 mmol/L Normal 98-107 [facility] Specialist Comment on above: Performed By: #### C BCAD, MG, URIC, LIPD, PHOS, CMP, DBIL #### [facility] [address] [place], [place] [id number] CO2 [Moles/Vol] 25 mmol/L Normal 20-31 [facility] Specialist Comment on above: Performed By: #### C BCAD, MG, URIC, LIPD, PHOS, CMP, DBIL #### [facility] [address] [place], [place] [id number] Creatinine [Mass/Vol] 1.1 mg/dL Normal 0.7-1.4 [facility] Comment on above: Performed By: #### C BCAD, MG, URIC, LIPD, PHOS, CMP, DBIL #### [facility] [address] [place], [place] [id number] eGFRAA 80 mL/min/1.73m2 Normal >60 [facility] Specialist Comment on above: Performed By: #### C BCAD, MG, URIC, LIPD, PHOS, CMP, DBIL #### [facility] [address] [place], [place] [id number] eGFRNAA 66 mL/min/1.73m2 Normal >60 [facility] Specialist Comment on above: Performed By: #### C BCAD, MG, URIC, LIPD, PHOS, CMP, DBIL #### [facility] [address] [place], [place] [id number] Globulin (S) [Mass/Vol] 1.9 g/dL Normal 1.9-3.7 [facility] Comment on above: Performed By: #### C BCAD, MG, URIC, LIPD, PHOS, CMP, DBIL #### [facility] [address] [place], [place] [id number] Glucose [Mass/Vol] 109 mg/dL High 65-99 [facility] Comment on above: Result Comment: For FASTING Glucose --- ADA reference ranges: Normal 65-99 mg/dl Prediabetes 100-125 Diabetes >/= 126 Performed By: #### C BCAD, MG, URIC, LIPD, PHOS, CMP, DBIL #### [facility] [address] [place], [place] [id number] Potassium [Moles/Vol] 4.7 mmol/L Normal 3.5-5.5 [facility] Personal Service Representative Comment on above: Performed By: #### C BCAD, MG, URIC, LIPD, PHOS, CMP, DBIL #### [facility] [address] [place], [place] [id number] Protein [Mass/Vol] 6.9 g/dL Normal 6.1-8.1 [facility] Personal Service Representative Comment on above: Performed By: #### C BCAD, MG, URIC, LIPD, PHOS, CMP, DBIL #### [facility] [address] [place], [place] [id number] Sodium [Moles/Vol] 141 mmol/L Normal 135-146 [facility] Personal Service Representative Comment on above: Performed By: #### C BCAD, MG, URIC, LIPD, PHOS, CMP, DBIL #### [facility] [address] [place], [place] [id number] Urea nitrogen [Mass/Vol] 18 mg/dL Normal 7-25 [facility] Personal Service Representative Comment on above: Performed By: #### C BCAD, MG, URIC, LIPD, PHOS, CMP, DBIL #### [facility] [address] [place], [place] [id number] Lipid Panelon 07-29-2021 Cholesterol [Mass/Vol] 121 mg/dL Low 125-200 [facility] Personal Service Representative Comment on above: Result Comment: Low risk < 200mg/dL Borderline risk 201-239 mg/dl High risk > or equal to 240 Performed By: #### C BCAD, MG, URIC, LIPD, PHOS, CMP, DBIL #### [facility] [address] [place], [place] [id number] Cholesterol in HDL [Mass/Vol] 41 mg/dL Normal >40 [facility] Personal Service Representative Comment on above: Result Comment: High Cardiovascular Risk HDL <40 mg/dL Low Cardiovascular Risk HDL > or equal to 60 mg/dl Performed By: #### C BCAD, MG, URIC, LIPD, PHOS, CMP, DBIL #### [facility] [address] [place], [place] [id number] Cholesterol in LDL [Mass/Vol] 56 mg/dL Normal [facility] Personal Service Representative Comment on above: Result Comment: LDL ATP III CLASSIFICATION LDL less than 100 mg/dl Optimal LDL 100-129 mg/dl Near or above optimal LDL 130-159 Borderline high LDL 160-189 High LDL greater than 189 mg/dl Very High Performed By: #### C BCAD, MG, URIC, LIPD, PHOS, CMP, DBIL #### [facility] [address] [place], [place] [id number] Cholesterol in VLDL [Mass/Vol] 24 mg/dL Normal [facility] Personal Service Representative Comment on above: Performed By: #### C BCAD, MG, URIC, LIPD, PHOS, CMP, DBIL #### [facility] [address] [place], [place] [id number] Cholesterol.total/C holesterol in HDL [Mass ratio] 3 {ratio} Normal [facility] Personal Service Representative Comment on above: Performed By: #### C BCAD, MG, URIC, LIPD, PHOS, CMP, DBIL #### [facility] [address] [place], [place] [id number] Triglyceride [Mass/Vol] 118 mg/dL Normal 30-150 [facility] Personal Service Representative Comment on above: Result Comment: TRIG ATPIII CLASSIFICATIONS TRIG less than 150 mg/dl Normal TRIG 150-199 mg/dl Borderline High TRIG 200-500 mg/dl High TRIG greather than 500 mg/dl Very High Performed By: #### C BCAD, MG, URIC, LIPD, PHOS, CMP, DBIL #### [facility] [address] [place], [place] [id number] Magnesiumon 07-29-2021 Magnesium [Mass/Vol] 2.0 mg/dL Normal 1.5-2.3 [facility] Personal Service Representative Comment on above: Performed By: #### C BCAD, MG, URIC, LIPD, PHOS, CMP, DBIL #### [facility] [address] [place], [place] [id number] Phosphoruson 07-29-2021 Phosphate [Mass/Vol] 3.3 mg/dL Normal 2.2-4.4 [facility] Personal Service Representative Comment on above: Performed By: #### C BCAD, MG, URIC, LIPD, PHOS, CMP, DBIL #### [facility] [address] [place], [place] [id number] Q - TACROLIMUSon 07-29-2021 TACROLIMUS, HIGHLY SENSITIVE, LC/MS/MS 6.3 mcg/L Normal [facility] Personal Service Representative Comment on above: Order Comment: [facility] performed at: Q, [facility], [address], [address] [place], [address], Backfiller: Shaheed Bazzi MDQuest Collection Date/Time: [id number] Results Received Date/Time: [id number] Reported Date/Time: Result Comment: No d efinitive therapeutic or toxic ranges have been established. Optimal blood drug levels are influenced by type of transplant, patient response, time post- transplant, co-administration of other drugs, and drug formulation. The following trough range is a suggested guideline: 5.0-20.0 mcg/L. This test was developed and its analytical performance characteristics have been determined by [employer]. It has not been cleared or approved by the FDA. This assay has been validated pursuant to the CLIA regulations and is used for clinical purposes. Performed By: #### C BCAD, MG, URIC, LIPD, PHOS, CMP, DBIL #### [facility] [address] [place], [place] [id number] Uric Acidon 07-29-2021 URIC 6.1 mg/dL Normal 4.0-8.0 [facility] Specialist Comment on above: Result Comment: Refe rence range change 03/03/2017. Prior reference range F 2.4-5.7mg/dL. M 3.4-7.0 mg/dL. Performed By: #### C BCAD, MG, URIC, LIPD, PHOS, CMP, DBIL #### [facility] [address] [place], [place] [id number] Bilirubin, Directon 06-29-19 DBIL <0.2 Normal [facility] Specialist Comment on above: Result Comment: Refe rence range change 03/03/2017. Prior reference range 0.1-0.3 mg/dL. Performed By: #### C BCAD, MG, URIC, LIPD, PHOS, CMP, DBIL #### [facility] [address] [place], [place] [id number] Complete Blood Count with Au to Diffon 06-28-2021 Basophils (Bld) [#/Vol] 0.05 10*3/uL Normal 0.00-0.20 [facility] Personal Service Representative Comment on above: Performed By: #### C BCAD, MG, URIC, LIPD, PHOS, CMP, DBIL #### [facility] [address] [place], [place] [id number] Basophils/100 WBC (Bld) 0.8 % Normal [facility] Specialist Comment on above: Performed By: #### C BCAD, MG, URIC, LIPD, PHOS, CMP, DBIL #### [facility] [address] [place], [place] [id number] Eosinophils (Bld) [#/Vol] 0.10 10*3/uL Normal 0.02-0.50 [facility] Personal Service Representative Comment on above: Performed By: #### C BCAD, MG, URIC, LIPD, PHOS, CMP, DBIL #### [facility] [address] [place], [place] [id number] Eosinophils/100 WBC (Bld) 1.6 % Normal [facility] Personal Service Representative Comment on above: Performed By: #### C BCAD, MG, URIC, LIPD, PHOS, CMP, DBIL #### [facility] [address] [place], [place] [id number] Erythrocyte distribution width (RBC) [Ratio] 14.6 % Normal 11.0-15.0 [facility] Personal Service Representative Comment on above: Performed By: #### C BCAD, MG, URIC, LIPD, PHOS, CMP, DBIL #### [facility] [address] [place], [place] [id number] Hematocrit (Bld) [Volume fraction] 50.7 % High 38.5-50.0 [facility] Personal Service Representative Comment on above: Performed By: #### C BCAD, MG, URIC, LIPD, PHOS, CMP, DBIL #### [facility] [address] [place], [place] [id number] Hemoglobin (Bld) [Mass/Vol] 16.2 g/dL Normal 13.0-17.1 [facility] Specialist Comment on above: Performed By: #### C BCAD, MG, URIC, LIPD, PHOS, CMP, DBIL #### [facility] [address] [place], [place] [id number] Lymphocytes (Bld) [#/Vol] 1.0 10*3/uL Normal 0.9-3.9 [facility] Specialist Comment on above: Performed By: #### C BCAD, MG, URIC, LIPD, PHOS, CMP, DBIL #### [facility] [address] [place], [place] [id number] Lymphocytes/100 WBC (Bld) 16.2 % Normal [facility] Specialist Comment on above: Performed By: #### C BCAD, MG, URIC, LIPD, PHOS, CMP, DBIL #### [facility] [address] [place], [place] [id number] MCH (RBC) [Entitic mass] 30.0 pg Normal 27.0-33.0 [facility] Specialist Comment on above: Performed By: #### C BCAD, MG, URIC, LIPD, PHOS, CMP, DBIL #### [facility] [address] [place], [place] [id number] MCHC (RBC) [Mass/Vol] 32.0 g/dL Normal 32.0-36.0 [facility] Specialist Comment on above: Performed By: #### C BCAD, MG, URIC, LIPD, PHOS, CMP, DBIL #### [facility] [address] [place], [place] [id number] MCV (RBC) [Entitic vol] 94 fL Normal 80-100 [facility] Specialist Comment on above: Performed By: #### C BCAD, MG, URIC, LIPD, PHOS, CMP, DBIL #### [facility] [address] [place], [place] [id number] Monocytes (Bld) [#/Vol] 0.9 10*3/uL Normal 0.2-0.9 [facility] Specialist Comment on above: Performed By: #### C BCAD, MG, URIC, LIPD, PHOS, CMP, DBIL #### [facility] [address] [place], [place] [id number] Monocytes/100 WBC (Bld) 13.4 % Normal [facility] Specialist Comment on above: Performed By: #### C BCAD, MG, URIC, LIPD, PHOS, CMP, DBIL #### [facility] [address] [place], [place] [id number] Neutrophils (Bld) [#/Vol] 4.3 10*3/uL Normal 1.5-7.8 [facility] Specialist Comment on above: Performed By: #### C BCAD, MG, URIC, LIPD, PHOS, CMP, DBIL #### [facility] [address] [place], [place] [id number] Neutrophils/100 WBC (Bld) 67.7 % Normal [facility] Specialist Comment on above: Performed By: #### C BCAD, MG, URIC, LIPD, PHOS, CMP, DBIL #### [facility] [address] [place], [place] [id number] Platelet mean volume (Bld) [Entitic vol] 11.00 fL Normal 7.50-12.50 [facility] Specialist Comment on above: Performed By: #### C BCAD, MG, URIC, LIPD, PHOS, CMP, DBIL #### [facility] [address] [place], [place] [id number] Platelets (Bld) [#/Vol] 239 10*3/uL Normal 140-400 [facility] Specialist Comment on above: Performed By: #### C BCAD, MG, URIC, LIPD, PHOS, CMP, DBIL #### [facility] [address] [place], [place] [id number] RBC (Bld) [#/Vol] 5.40 10*6/uL Normal 4.20-5.80 [facility] Specialist Comment on above: Performed By: #### C BCAD, MG, URIC, LIPD, PHOS, CMP, DBIL #### [facility] [address] [place], [place] [id number] RDW-SD 50.2 fL High 37.0-50.0 [facility] Specialist Comment on above: Performed By: #### C BCAD, MG, URIC, LIPD, PHOS, CMP, DBIL #### [facility] [address] [place], [place] [id number] WBC (Bld) [#/Vol] 6.4 10*3/uL Normal 3.8-11.0 [facility] [place] [facility] [employer] Representative Comment on above: Performed By: #### C BCAD, MG, URIC, LIPD, PHOS, CMP, DBIL #### [facility] [address] [place], [place] [id number] Comprehensive Metabolic Pane [facility] 06-28-2021 Albumin [Mass/Vol] 4.9 g/dL Normal 3.6-5.1 [facility] [place] [facility] Comment on above: Performed By: #### C BCAD, MG, URIC, LIPD, PHOS, CMP, DBIL #### [facility] [address] [place], [place] [id number] Albumin/Globulin [Mass ratio] 3.3 {ratio} High 1.0-2.5 [facility] Personal Service Representative Comment on above: Performed By: #### C BCAD, MG, URIC, LIPD, PHOS, CMP, DBIL #### [facility] [address] [place], [place] [id number] ALP [Catalytic activity/Vol] 73 U/L Normal 40-129 [facility] Personal Service Representative Comment on above: Performed By: #### C BCAD, MG, URIC, LIPD, PHOS, CMP, DBIL #### [facility] [address] [place], [place] [id number] ALT [Catalytic activity/Vol] 26 U/L Normal 9-46 [facility] Personal Service Representative Comment on above: Result Comment: 03/17 Female reference range changed. Performed By: #### C BCAD, MG, URIC, LIPD, PHOS, CMP, DBIL #### [facility] [address] [place], [place] [id number] Anion gap [Moles/Vol] 16 mmol/L Normal 12-20 [facility] Personal Service Representative Comment on above: Result Comment: Effe ctive 04/22/2019 reference range changed. Performed By: #### C BCAD, MG, URIC, LIPD, PHOS, CMP, DBIL #### [facility] [address] [place], [place] [id number] AST [Catalytic activity/Vol] 23 U/L Normal 10-40 [facility] Comment on above: Performed By: #### C BCAD, MG, URIC, LIPD, PHOS, CMP, DBIL #### [facility] [address] [place], [place] [id number] Bilirubin [Mass/Vol] 0.76 mg/dL Normal 0.30-1.20 [facility] Comment on above: Performed By: #### C BCAD, MG, URIC, LIPD, PHOS, CMP, DBIL #### [facility] [address] [place], [place] [id number] BUN/CREA 15 Ratio Normal 6-22 [facility] Comment on above: Performed By: #### C BCAD, MG, URIC, LIPD, PHOS, CMP, DBIL #### [facility] [address] [place], [place] [id number] Calcium [Mass/Vol] 9.8 mg/dL Normal 8.6-10.2 [facility] Comment on above: Performed By: #### C BCAD, MG, URIC, LIPD, PHOS, CMP, DBIL #### [facility] [address] [place], [place] [id number] Chloride [Moles/Vol] 103 mmol/L Normal 98-107 [facility] Specialist Comment on above: Performed By: #### C BCAD, MG, URIC, LIPD, PHOS, CMP, DBIL #### [facility] [address] [place], [place] [id number] CO2 [Moles/Vol] 26 mmol/L Normal 20-31 [facility] Comment on above: Performed By: #### C BCAD, MG, URIC, LIPD, PHOS, CMP, DBIL #### [facility] [address] [place], [place] [id number] Creatinine [Mass/Vol] 1.1 mg/dL Normal 0.7-1.4 [facility] Specialist Comment on above: Performed By: #### C BCAD, MG, URIC, LIPD, PHOS, CMP, DBIL #### [facility] [address] [place], [place] [id number] eGFRAA 80 mL/min/1.73m2 Normal >60 [facility] Personal Service Representative Comment on above: Performed By: #### C BCAD, MG, URIC, LIPD, PHOS, CMP, DBIL #### [facility] [address] [place], [place] [id number] eGFRNAA 66 mL/min/1.73m2 Normal >60 [facility] Personal Service Representative Comment on above: Performed By: #### C BCAD, MG, URIC, LIPD, PHOS, CMP, DBIL #### [facility] [address] [place], [place] [id number] Globulin (S) [Mass/Vol] 1.5 g/dL Low 1.9-3.7 [facility] Personal Service Representative Comment on above: Performed By: #### C BCAD, MG, URIC, LIPD, PHOS, CMP, DBIL #### [facility] [address] [place], [place] [id number] Glucose [Mass/Vol] 130 mg/dL High 65-99 [facility] [place] [facility] Service Representative Comment on above: Result Comment: For FASTING Glucose --- ADA reference ranges: Normal 65-99 mg/dl Prediabetes 100-125 Diabetes >/= 126 Performed By: #### C BCAD, MG, URIC, LIPD, PHOS, CMP, DBIL #### [facility] [address] [place], [place] [id number] Potassium [Moles/Vol] 4.6 mmol/L Normal 3.5-5.5 [facility] Personal Service Representative Comment on above: Performed By: #### C BCAD, MG, URIC, LIPD, PHOS, CMP, DBIL #### [facility] [address] [place], [place] [id number] Protein [Mass/Vol] 6.4 g/dL Normal 6.1-8.1 [facility] [place] [facility] Representative Comment on above: Performed By: #### C BCAD, MG, URIC, LIPD, PHOS, CMP, DBIL #### [facility] [address] [place], [place] [id number] Sodium [Moles/Vol] 140 mmol/L Normal 135-146 [place] [place] [facility] Service Representative Comment on above: Performed By: #### C BCAD, MG, URIC, LIPD, PHOS, CMP, DBIL #### [facility] [address] [place], [place] [id number] Urea nitrogen [Mass/Vol] 17 mg/dL Normal 7-25 [facility] Specialist Comment on above: Performed By: #### C BCAD, MG, URIC, LIPD, PHOS, CMP, DBIL #### [facility] [address] [place], [place] [id number] Lipid Panelon 06-28-2021 Cholesterol [Mass/Vol] 111 mg/dL Low 125-200 [facility] Specialist Comment on above: Result Comment: Low risk < 200mg/dL Borderline risk 201-239 mg/dl High risk > or equal to 240 Performed By: #### C BCAD, MG, URIC, LIPD, PHOS, CMP, DBIL #### [facility] [address] [place], [place] [id number] Cholesterol in HDL [Mass/Vol] 38 mg/dL Low >40 [facility] Specialist Comment on above: Result Comment: High Cardiovascular Risk HDL <40 mg/dL Low Cardiovascular Risk HDL > or equal to 60 mg/dl Performed By: #### C BCAD, MG, URIC, LIPD, PHOS, CMP, DBIL #### [facility] [address] [place], [place] [id number] Cholesterol in LDL [Mass/Vol] 47 mg/dL Normal [facility] Specialist Comment on above: Result Comment: LDL ATP III CLASSIFICATION LDL less than 100 mg/dl Optimal LDL 100-129 mg/dl Near or above optimal LDL 130-159 Borderline high LDL 160-189 High LDL greater than 189 mg/dl Very High Performed By: #### C BCAD, MG, URIC, LIPD, PHOS, CMP, DBIL #### [facility] [address] [place], [place] [id number] Cholesterol in VLDL [Mass/Vol] 26 mg/dL Normal [facility] Specialist Comment on above: Performed By: #### C BCAD, MG, URIC, LIPD, PHOS, CMP, DBIL #### [facility] [address] [place], [place] [id number] Cholesterol.total/C holesterol in HDL [Mass ratio] 3 {ratio} Normal [facility] Personal Service Representative Comment on above: Performed By: #### C BCAD, MG, URIC, LIPD, PHOS, CMP, DBIL #### [facility] [address] [place], [place] [id number] Triglyceride [Mass/Vol] 132 mg/dL Normal 30-150 [facility] Personal Service Representative Comment on above: Result Comment: TRIG ATPIII CLASSIFICATIONS TRIG less than 150 mg/dl Normal TRIG 150-199 mg/dl Borderline High TRIG 200-500 mg/dl High TRIG greather than 500 mg/dl Very High Performed By: #### C BCAD, MG, URIC, LIPD, PHOS, CMP, DBIL #### [facility] [address] [place], [place] [id number] Magnesiumon 06-28-2021 Magnesium [Mass/Vol] 1.7 mg/dL Normal 1.5-2.3 [facility] Personal Service Representative Comment on above: Performed By: #### C BCAD, MG, URIC, LIPD, PHOS, CMP, DBIL #### [facility] [address] [place], [place] [id number] Phosphoruson 06-28-2021 Phosphate [Mass/Vol] 3.7 mg/dL Normal 2.2-4.4 [facility] Personal Service Representative Comment on above: Performed By: #### C BCAD, MG, URIC, LIPD, PHOS, CMP, DBIL #### [facility] [address] [place], [place] [id number] Uric Acidon 06-28-2021 URIC 6.0 mg/dL Normal 4.0-8.0 [facility] Personal Service Representative Comment on above: Result Comment: Refe rence range change 03/03/2017. Prior reference range F 2.4-5.7mg/dL. M 3.4-7.0 mg/dL. Performed By: #### C BCAD, MG, URIC, LIPD, PHOS, CMP, DBIL #### [facility] [address] [place], [place] [id number] Pulmonary Functionon 022 Pulmonary Function MR #: [id number] [facility] PT. Name: Vishal Duke Date: 06/02/2021 Date of : 1960 Patient Type: D Pulmonary Function INTERPRETATION CLINICAL INDICATION: The patient is 60-year-old male with BMI of 30.6. Indication is dyspnea on exertion and cough and infection in July 2020. Patient has productive cough and rare wheezing. Patient smoked 1 pack/day for 20 years and quit 15 years ago. Patient is on prednisone 5 mg daily. LUNG VOLUMES: Slow vital capacity is normal at 92% of predicted. LUNG DIFFUSION: Uncorrected DLCO is reduced to 52% of predicted but improved from 41% in November 2020.. Corrected DLCO was unable to obtain because of lack of hemoglobin level. DLCO corrected alveolar volume is 62% CLINICAL IMPRESSION: Mild improvement in DLCO since July 2020. Electronically Signed by: Negro Syed MD 06/06/2021 03:02 P Daniel Jansen MD [facility] Date Dict: 06/06/2021/02:28 P/Negro Syed MD Date Trans: 06/06/2021 02:28 P/ [id number] cc: Rosa M Gonzales M.D. [address] [place] [address] [place] [address] Normal [facility] Bilirubin, Directon 06-01-19 22 DBIL <0.2 Normal [facility] Personal Service Representative Comment on above: Result Comment: Refe rence range change 03/03/2017. Prior reference range 0.1-0.3 mg/dL. Performed By: #### C BCAD, MG, URIC, LIPD, PHOS, CMP, DBIL #### [facility] [address] [place] [id number] Complete Blood Count with Au to Diffon 06-01-2021 Basophils (Bld) [#/Vol] 0.06 10*3/uL Normal 0.00-0.20 [facility] Personal Service Representative Comment on above: Performed By: #### C BCAD, MG, URIC, LIPD, PHOS, CMP, DBIL #### [facility] [address] [place], [place] [id number] Basophils/100 WBC (Bld) 0.9 % Normal [facility] Specialist Comment on above: Performed By: #### C BCAD, MG, URIC, LIPD, PHOS, CMP, DBIL #### [facility] [address] [place], [place] [id number] Eosinophils (Bld) [#/Vol] 0.12 10*3/uL Normal 0.02-0.50 [facility] Specialist Comment on above: Performed By: #### C BCAD, MG, URIC, LIPD, PHOS, CMP, DBIL #### [facility] [address] [place], [place] [id number] Eosinophils/100 WBC (Bld) 1.8 % Normal [facility] Specialist Comment on above: Performed By: #### C BCAD, MG, URIC, LIPD, PHOS, CMP, DBIL #### [facility] [address] [place], [place] [id number] Erythrocyte distribution width (RBC) [Ratio] 14.7 % Normal 11.0-15.0 [facility] Specialist Comment on above: Performed By: #### C BCAD, MG, URIC, LIPD, PHOS, CMP, DBIL #### [facility] [address] [place], [place] [id number] Hematocrit (Bld) [Volume fraction] 50.8 % High 38.5-50.0 [facility] Specialist Comment on above: Performed By: #### C BCAD, MG, URIC, LIPD, PHOS, CMP, DBIL #### [facility] [address] [place], [place] [id number] Hemoglobin (Bld) [Mass/Vol] 16.5 g/dL Normal 13.0-17.1 [facility] Personal Service Representative Comment on above: Performed By: #### C BCAD, MG, URIC, LIPD, PHOS, CMP, DBIL #### [facility] [address] [place], [place] [id number] Lymphocytes (Bld) [#/Vol] 1.1 10*3/uL Normal 0.9-3.9 [facility] Personal Service Representative Comment on above: Performed By: #### C BCAD, MG, URIC, LIPD, PHOS, CMP, DBIL #### [facility] [address] [place], [place] [id number] Lymphocytes/100 WBC (Bld) 16.1 % Normal [facility] Specialist Comment on above: Performed By: #### C BCAD, MG, URIC, LIPD, PHOS, CMP, DBIL #### [facility] [address] [place], [place] [id number] MCH (RBC) [Entitic mass] 29.8 pg Normal 27.0-33.0 [facility] Specialist Comment on above: Performed By: #### C BCAD, MG, URIC, LIPD, PHOS, CMP, DBIL #### [facility] [address] [place], [place] [id number] MCHC (RBC) [Mass/Vol] 32.5 g/dL Normal 32.0-36.0 [facility] Specialist Comment on above: Performed By: #### C BCAD, MG, URIC, LIPD, PHOS, CMP, DBIL #### [facility] [address] [place], [place] [id number] MCV (RBC) [Entitic vol] 92 fL Normal 80-100 [facility] Specialist Comment on above: Performed By: #### C BCAD, MG, URIC, LIPD, PHOS, CMP, DBIL #### [facility] [address] [place], [place] [id number] Monocytes (Bld) [#/Vol] 0.8 10*3/uL Normal 0.2-0.9 [facility] Specialist Comment on above: Performed By: #### C BCAD, MG, URIC, LIPD, PHOS, CMP, DBIL #### [facility] [address] [place], [place] [id number] Monocytes/100 WBC (Bld) 11.4 % Normal [facility] Specialist Comment on above: Performed By: #### C BCAD, MG, URIC, LIPD, PHOS, CMP, DBIL #### [facility] [address] [place], [place] [id number] Neutrophils (Bld) [#/Vol] 4.6 10*3/uL Normal 1.5-7.8 [facility] Specialist Comment on above: Performed By: #### C BCAD, MG, URIC, LIPD, PHOS, CMP, DBIL #### [facility] [address] [place], [place] [id number] Neutrophils/100 WBC (Bld) 69.2 % Normal [facility] Comment on above: Performed By: #### C BCAD, MG, URIC, LIPD, PHOS, CMP, DBIL #### [facility] [address] [place], [place] [id number] Platelet mean volume (Bld) [Entitic vol] 10.60 fL Normal 7.50-12.50 [facility] Comment on above: Performed By: #### C BCAD, MG, URIC, LIPD, PHOS, CMP, DBIL #### [facility] [address] [place], [place] [id number] Platelets (Bld) [#/Vol] 285 10*3/uL Normal 140-400 [facility] Comment on above: Performed By: #### C BCAD, MG, URIC, LIPD, PHOS, CMP, DBIL #### [facility] [address] [place], [place] [id number] RBC (Bld) [#/Vol] 5.53 10*6/uL Normal 4.20-5.80 [facility] Comment on above: Performed By: #### C BCAD, MG, URIC, LIPD, PHOS, CMP, DBIL #### [facility] [address] [place], [place] [id number] RDW-SD 49.8 fL Normal 37.0-50.0 [facility] Comment on above: Performed By: #### C BCAD, MG, URIC, LIPD, PHOS, CMP, DBIL #### [facility] [address] [place], [place] [id number] WBC (Bld) [#/Vol] 6.6 10*3/uL Normal 3.8-11.0 [facility] Comment on above: Performed By: #### C BCAD, MG, URIC, LIPD, PHOS, CMP, DBIL #### [facility] [address] [place], [place] [id number] Comprehensive Metabolic Pane nitin 06-01-2021 Albumin [Mass/Vol] 5.0 g/dL Normal 3.6-5.1 [facility] Comment on above: Performed By: #### C BCAD, MG, URIC, LIPD, PHOS, CMP, DBIL #### [facility] [address] [place], [place] [id number] Albumin/Globulin [Mass ratio] 2.6 {ratio} High 1.0-2.5 [facility] Comment on above: Performed By: #### C BCAD, MG, URIC, LIPD, PHOS, CMP, DBIL #### [facility] [address] [facility] [place] [place] [id number] ALP [Catalytic activity/Vol] 93 U/L Normal 40-129 [facility] Comment on above: Performed By: #### C BCAD, MG, URIC, LIPD, PHOS, CMP, DBIL #### [facility] [address] [facility] [place] [id number] ALT [Catalytic activity/Vol] 30 U/L Normal 9-46 [facility] Comment on above: Result Comment: 03/17 Female reference range changed. Performed By: #### C BCAD, MG, URIC, LIPD, PHOS, CMP, DBIL #### [facility] [address] [facility] [place] [id number] Anion gap [Moles/Vol] 21 mmol/L High 12-20 [facility] Specialist Comment on above: Result Comment: Effe ctive 04/22/2019 reference range changed. Performed By: #### C BCAD, MG, URIC, LIPD, PHOS, CMP, DBIL #### [facility] [address] [place], [place] [id number] AST [Catalytic activity/Vol] 26 U/L Normal 10-40 [facility] Comment on above: Performed By: #### C BCAD, MG, URIC, LIPD, PHOS, CMP, DBIL #### [facility] [address] [place], [place] [id number] Bilirubin [Mass/Vol] 0.72 mg/dL Normal 0.30-1.20 [facility] Specialist Comment on above: Performed By: #### C BCAD, MG, URIC, LIPD, PHOS, CMP, DBIL #### [facility] [address] [place], [place] [id number] BUN/CREA 15 Ratio Normal 6-22 [facility] Comment on above: Performed By: #### C BCAD, MG, URIC, LIPD, PHOS, CMP, DBIL #### [facility] [address] [place], [place] [id number] Calcium [Mass/Vol] 10.4 mg/dL High 8.6-10.2 [facility] Comment on above: Performed By: #### C BCAD, MG, URIC, LIPD, PHOS, CMP, DBIL #### [facility] [address] [place], [place] [id number] Chloride [Moles/Vol] 104 mmol/L Normal 98-107 [facility] Comment on above: Performed By: #### C BCAD, MG, URIC, LIPD, PHOS, CMP, DBIL #### [facility] [address] [place], [place] [id number] CO2 [Moles/Vol] 24 mmol/L Normal 20-31 [facility] Comment on above: Performed By: #### C BCAD, MG, URIC, LIPD, PHOS, CMP, DBIL #### [facility] [address] [place], [place] [id number] Creatinine [Mass/Vol] 1.2 mg/dL Normal 0.7-1.4 [facility] Comment on above: Performed By: #### C BCAD, MG, URIC, LIPD, PHOS, CMP, DBIL #### [facility] [address] [place], [place] [id number] eGFRAA 79 mL/min/1.73m2 Normal >60 [facility] Comment on above: Performed By: #### C BCAD, MG, URIC, LIPD, PHOS, CMP, DBIL #### [facility] [address] [place], [place] [id number] eGFRNAA 65 mL/min/1.73m2 Normal >60 [facility] Specialist Comment on above: Performed By: #### C BCAD, MG, URIC, LIPD, PHOS, CMP, DBIL #### [facility] [address] [place], [place] [id number] Globulin (S) [Mass/Vol] 1.9 g/dL Normal 1.9-3.7 [facility] Personal Service Representative Comment on above: Performed By: #### C BCAD, MG, URIC, LIPD, PHOS, CMP, DBIL #### [facility] [address] [place], [place] [id number] Glucose [Mass/Vol] 108 mg/dL High 65-99 [facility] [place] Personal Service Representative Comment on above: Result Comment: For FASTING Glucose --- ADA reference ranges: Normal 65-99 mg/dl Prediabetes 100-125 Diabetes >/= 126 Performed By: #### C BCAD, MG, URIC, LIPD, PHOS, CMP, DBIL #### [facility] [address] [place], [place] [id number] Potassium [Moles/Vol] 5.0 mmol/L Normal 3.5-5.5 [facility] Personal Service Representative Comment on above: Performed By: #### C BCAD, MG, URIC, LIPD, PHOS, CMP, DBIL #### [facility] [address] [place], [place] [id number] Protein [Mass/Vol] 6.9 g/dL Normal 6.1-8.1 [facility] [place] [facility] Representative Comment on above: Performed By: #### C BCAD, MG, URIC, LIPD, PHOS, CMP, DBIL #### [facility] [address] [place], [place] [id number] Sodium [Moles/Vol] 143 mmol/L Normal 135-146 [place] [facility] [place] [facility] Representative Comment on above: Performed By: #### C BCAD, MG, URIC, LIPD, PHOS, CMP, DBIL #### [facility] [address] [place], [place] [id number] Urea nitrogen [Mass/Vol] 17 mg/dL Normal 7-25 [facility] Personal Service Representative Comment on above: Performed By: #### C BCAD, MG, URIC, LIPD, PHOS, CMP, DBIL #### [facility] [address] [place], [place] [id number] Hemoglobin A1Con 06-01-2021 EAG 139.85 Normal [facility] Personal Service Representative Comment on above: Performed By: #### A 1C #### [facility] [address] [place], [place] [id number] HbA1c (Bld) [Mass fraction] 6.5 % High 4.0-6.0 [facility] Personal Service Representative Comment on above: Performed By: #### A 1C #### [facility] [address] [place], [place] [id number] Lipid Panelon 06-01-2021 Cholesterol [Mass/Vol] 129 mg/dL Normal 125-200 [facility] Personal Service Representative Comment on above: Result Comment: Low risk < 200mg/dL Borderline risk 201-239 mg/dl High risk > or equal to 240 Performed By: #### C BCAD, MG, URIC, LIPD, PHOS, CMP, DBIL #### [facility] [address] [place], [place] [id number] Cholesterol in HDL [Mass/Vol] 44 mg/dL Normal >40 [facility] Personal Service Representative Comment on above: Result Comment: High Cardiovascular Risk HDL <40 mg/dL Low Cardiovascular Risk HDL > or equal to 60 mg/dl Performed By: #### C BCAD, MG, URIC, LIPD, PHOS, CMP, DBIL #### [facility] [address] [place], [place] [id number] Cholesterol in LDL [Mass/Vol] 61 mg/dL Normal [facility] Specialist Comment on above: Result Comment: LDL ATP III CLASSIFICATION LDL less than 100 mg/dl Optimal LDL 100-129 mg/dl Near or above optimal LDL 130-159 Borderline high LDL 160-189 High LDL greater than 189 mg/dl Very High Performed By: #### C BCAD, MG, URIC, LIPD, PHOS, CMP, DBIL #### [facility] [address] [place], [place] [id number] Cholesterol in VLDL [Mass/Vol] 24 mg/dL Normal [facility] Personal Service Representative Comment on above: Performed By: #### C BCAD, MG, URIC, LIPD, PHOS, CMP, DBIL #### [facility] [address] [place], [place] [id number] Cholesterol.total/C holesterol in HDL [Mass ratio] 3 {ratio} Normal [place] Personal Service Representative Comment on above: Performed By: #### C BCAD, MG, URIC, LIPD, PHOS, CMP, DBIL #### [facility] [address] [place], [place] [id number] Triglyceride [Mass/Vol] 119 mg/dL Normal 30-150 [facility] Personal Service Representative Comment on above: Result Comment: TRIG ATPIII CLASSIFICATIONS TRIG less than 150 mg/dl Normal TRIG 150-199 mg/dl Borderline High TRIG 200-500 mg/dl High TRIG greather than 500 mg/dl Very High Performed By: #### C BCAD, MG, URIC, LIPD, PHOS, CMP, DBIL #### [facility] [address] [place], [place] [id number] Magnesiumon 06-01-2021 Magnesium [Mass/Vol] 1.8 mg/dL Normal 1.5-2.3 [facility] Personal Service Representative Comment on above: Performed By: #### C BCAD, MG, URIC, LIPD, PHOS, CMP, DBIL #### [facility] [address] [place], [place] [id number] Phosphoruson 06-01-2021 Phosphate [Mass/Vol] 4.3 mg/dL Normal 2.2-4.4 [facility] Personal Service Representative Comment on above: Performed By: #### C BCAD, MG, URIC, LIPD, PHOS, CMP, DBIL #### [facility] [address] [place], [place] [id number] Uric Acidon 06-01-2021 URIC 6.1 mg/dL Normal 4.0-8.0 [facility] Personal Service Representative Comment on above: Result Comment: Refe rence range change 03/03/2017. Prior reference range F 2.4-5.7mg/dL. M 3.4-7.0 mg/dL. Performed By: #### C BCAD, MG, URIC, LIPD, PHOS, CMP, DBIL #### [facility] [address] [place], [place] [id number] Bilirubin, Directon 04-30-19 22 DBIL <0.2 Normal [facility] Personal Service Representative Comment on above: Result Comment: Refe rence range change 03/03/2017. Prior reference range 0.1-0.3 mg/dL. Performed By: #### C BCAD, MG, URIC, LIPD, PHOS, CMP, DBIL #### [facility] [address] [place], [place] [id number] Complete Blood Count with Au to Diffon 04-30-2021 Basophils (Bld) [#/Vol] 0.07 10*3/uL Normal 0.00-0.20 [facility] Specialist Comment on above: Performed By: #### C BCAD, MG, URIC, LIPD, PHOS, CMP, DBIL #### [facility] [address] [place], [place] [id number] Basophils/100 WBC (Bld) 1.1 % Normal [facility] Specialist Comment on above: Performed By: #### C BCAD, MG, URIC, LIPD, PHOS, CMP, DBIL #### [facility] [address] [place], [place] [id number] Eosinophils (Bld) [#/Vol] 0.12 10*3/uL Normal 0.02-0.50 [facility] Personal Service Representative Comment on above: Performed By: #### C BCAD, MG, URIC, LIPD, PHOS, CMP, DBIL #### [facility] [address] [place], [place] [id number] Eosinophils/100 WBC (Bld) 1.8 % Normal [facility] Personal Service Representative Comment on above: Performed By: #### C BCAD, MG, URIC, LIPD, PHOS, CMP, DBIL #### [facility] [address] [place], [place] [id number] Erythrocyte distribution width (RBC) [Ratio] 14.7 % Normal 11.0-15.0 [facility] Specialist Comment on above: Performed By: #### C BCAD, MG, URIC, LIPD, PHOS, CMP, DBIL #### [facility] [address] [place], [place] [id number] Hematocrit (Bld) [Volume fraction] 50.5 % High 38.5-50.0 [facility] Specialist Comment on above: Performed By: #### C BCAD, MG, URIC, LIPD, PHOS, CMP, DBIL #### [facility] [address] [place], [place] [id number] Hemoglobin (Bld) [Mass/Vol] 16.4 g/dL Normal 13.0-17.1 [facility] Specialist Comment on above: Performed By: #### C BCAD, MG, URIC, LIPD, PHOS, CMP, DBIL #### [facility] [address] [place], [place] [id number] Lymphocytes (Bld) [#/Vol] 1.0 10*3/uL Normal 0.9-3.9 [facility] Specialist Comment on above: Performed By: #### C BCAD, MG, URIC, LIPD, PHOS, CMP, DBIL #### [facility] [address] [place], [place] [id number] Lymphocytes/100 WBC (Bld) 14.7 % Normal [facility] Specialist Comment on above: Performed By: #### C BCAD, MG, URIC, LIPD, PHOS, CMP, DBIL #### [facility] [address] [place], [place] [id number] MCH (RBC) [Entitic mass] 29.4 pg Normal 27.0-33.0 [facility] Specialist Comment on above: Performed By: #### C BCAD, MG, URIC, LIPD, PHOS, CMP, DBIL #### [facility] [address] [place], [place] [id number] MCHC (RBC) [Mass/Vol] 32.5 g/dL Normal 32.0-36.0 [facility] Specialist Comment on above: Performed By: #### C BCAD, MG, URIC, LIPD, PHOS, CMP, DBIL #### [facility] [address] [place], [place] [id number] MCV (RBC) [Entitic vol] 91 fL Normal 80-100 [facility] Specialist Comment on above: Performed By: #### C BCAD, MG, URIC, LIPD, PHOS, CMP, DBIL #### [facility] [address] [place], [place] [id number] Monocytes (Bld) [#/Vol] 0.7 10*3/uL Normal 0.2-0.9 [facility] Specialist Comment on above: Performed By: #### C BCAD, MG, URIC, LIPD, PHOS, CMP, DBIL #### [facility] [address] [place], [place] [id number] Monocytes/100 WBC (Bld) 10.4 % Normal [facility] Specialist Comment on above: Performed By: #### C BCAD, MG, URIC, LIPD, PHOS, CMP, DBIL #### [facility] [address] [place], [place] [id number] Neutrophils (Bld) [#/Vol] 4.7 10*3/uL Normal 1.5-7.8 [facility] Specialist Comment on above: Performed By: #### C BCAD, MG, URIC, LIPD, PHOS, CMP, DBIL #### [facility] [address] [place], [place] [id number] Neutrophils/100 WBC (Bld) 71.4 % Normal [facility] Specialist Comment on above: Performed By: #### C BCAD, MG, URIC, LIPD, PHOS, CMP, DBIL #### [facility] [address] [place], [place] [id number] Platelet mean volume (Bld) [Entitic vol] 10.70 fL Normal 7.50-12.50 [facility] Personal Service Representative Comment on above: Performed By: #### C BCAD, MG, URIC, LIPD, PHOS, CMP, DBIL #### [facility] [address] [place], [place] [id number] Platelets (Bld) [#/Vol] 261 10*3/uL Normal 140-400 [facility] Personal Service Representative Comment on above: Performed By: #### C BCAD, MG, URIC, LIPD, PHOS, CMP, DBIL #### [facility] [address] [place], [place] [id number] RBC (Bld) [#/Vol] 5.57 10*6/uL Normal 4.20-5.80 [facility] Specialist Comment on above: Performed By: #### C BCAD, MG, URIC, LIPD, PHOS, CMP, DBIL #### [facility] [address] [place], [place] [id number] RDW-SD 49.2 fL Normal 37.0-50.0 [facility] Personal Service Representative Comment on above: Performed By: #### C BCAD, MG, URIC, LIPD, PHOS, CMP, DBIL #### [facility] [address] [place], [place] [id number] WBC (Bld) [#/Vol] 6.6 10*3/uL Normal 3.8-11.0 [place] [facility] [place] Personal Service Representative Comment on above: Performed By: #### C BCAD, MG, URIC, LIPD, PHOS, CMP, DBIL #### [facility] [address] [place], [place] [id number] Comprehensive Metabolic Pane nitin 04-30-2021 Albumin [Mass/Vol] 4.9 g/dL Normal 3.6-5.1 [facility] [place] Personal Service Representative Comment on above: Performed By: #### C BCAD, MG, URIC, LIPD, PHOS, CMP, DBIL #### [facility] [address] [place], [place] [id number] Albumin/Globulin [Mass ratio] 2.6 {ratio} High 1.0-2.5 [facility] Specialist Comment on above: Performed By: #### C BCAD, MG, URIC, LIPD, PHOS, CMP, DBIL #### [facility] [address] [place], [place] [id number] ALP [Catalytic activity/Vol] 89 U/L Normal 40-129 [facility] Personal Service Representative Comment on above: Performed By: #### C BCAD, MG, URIC, LIPD, PHOS, CMP, DBIL #### [facility] [address] [place], [place] [id number] ALT [Catalytic activity/Vol] 30 U/L Normal 9-46 [facility] Personal Service Representative Comment on above: Result Comment: 03/17 Female reference range changed. Performed By: #### C BCAD, MG, URIC, LIPD, PHOS, CMP, DBIL #### [facility] [address] [place], [place] [id number] Anion gap [Moles/Vol] 20 mmol/L Normal 12-20 [facility] Personal Service Representative Comment on above: Result Comment: Effe ctive 04/22/2019 reference range changed. Performed By: #### C BCAD, MG, URIC, LIPD, PHOS, CMP, DBIL #### [facility] [address] [place], [place] [id number] AST [Catalytic activity/Vol] 23 U/L Normal 10-40 [facility] Specialist Comment on above: Performed By: #### C BCAD, MG, URIC, LIPD, PHOS, CMP, DBIL #### [facility] [address] [place], [place] [id number] Bilirubin [Mass/Vol] 0.52 mg/dL Normal 0.30-1.20 [facility] Specialist Comment on above: Performed By: #### C BCAD, MG, URIC, LIPD, PHOS, CMP, DBIL #### [facility] [address] [place], [place] [id number] BUN/CREA 18 Ratio Normal 6-22 [facility] Specialist Comment on above: Performed By: #### C BCAD, MG, URIC, LIPD, PHOS, CMP, DBIL #### [facility] [address] [place], [place] [id number] Calcium [Mass/Vol] 10.1 mg/dL Normal 8.6-10.2 [facility] Comment on above: Performed By: #### C BCAD, MG, URIC, LIPD, PHOS, CMP, DBIL #### [facility] [address] [place], [place] [id number] Chloride [Moles/Vol] 102 mmol/L Normal 98-107 [facility] Specialist Comment on above: Performed By: #### C BCAD, MG, URIC, LIPD, PHOS, CMP, DBIL #### [facility] [address] [place], [place] [id number] CO2 [Moles/Vol] 23 mmol/L Normal 20-31 [facility] Specialist Comment on above: Performed By: #### C BCAD, MG, URIC, LIPD, PHOS, CMP, DBIL #### [facility] [address] [place], [place] [id number] Creatinine [Mass/Vol] 1.3 mg/dL Normal 0.7-1.4 [facility] Specialist Comment on above: Performed By: #### C BCAD, MG, URIC, LIPD, PHOS, CMP, DBIL #### [facility] [address] [place], [place] [id number] eGFRAA 71 mL/min/1.73m2 Normal >60 [facility] Personal Service Representative Comment on above: Performed By: #### C BCAD, MG, URIC, LIPD, PHOS, CMP, DBIL #### [facility] [address] [place], [place] [id number] eGFRNAA 59 mL/min/1.73m2 Low >60 [facility] Personal Service Representative Comment on above: Performed By: #### C BCAD, MG, URIC, LIPD, PHOS, CMP, DBIL #### [facility] [address] [place], [place] [id number] Globulin (S) [Mass/Vol] 1.9 g/dL Normal 1.9-3.7 [facility] Personal Service Representative Comment on above: Performed By: #### C BCAD, MG, URIC, LIPD, PHOS, CMP, DBIL #### [facility] [address] [place], [place] [id number] Glucose [Mass/Vol] 128 mg/dL High 65-99 [facility] Personal Service Representative Comment on above: Result Comment: For FASTING Glucose --- ADA reference ranges: Normal 65-99 mg/dl Prediabetes 100-125 Diabetes >/= 126 Performed By: #### C BCAD, MG, URIC, LIPD, PHOS, CMP, DBIL #### [facility] [address] [place], [place] [id number] Potassium [Moles/Vol] 4.4 mmol/L Normal 3.5-5.5 [facility] Personal Service Representative Comment on above: Performed By: #### C BCAD, MG, URIC, LIPD, PHOS, CMP, DBIL #### [facility] [address] [place], [place] [id number] Protein [Mass/Vol] 6.8 g/dL Normal 6.1-8.1 [place] Personal Service Representative Comment on above: Performed By: #### C BCAD, MG, URIC, LIPD, PHOS, CMP, DBIL #### [facility] [address] [place], [place] [id number] Sodium [Moles/Vol] 140 mmol/L Normal 135-146 [facility] Comment on above: Performed By: #### C BCAD, MG, URIC, LIPD, PHOS, CMP, DBIL #### [facility] [address] [place], [place] [id number] Urea nitrogen [Mass/Vol] 23 mg/dL Normal 7-25 [facility] Specialist Comment on above: Performed By: #### C BCAD, MG, URIC, LIPD, PHOS, CMP, DBIL #### [facility] [address] [place], [place] [id number] Lipid Panelon 04-30-2021 Cholesterol [Mass/Vol] 123 mg/dL Low 125-200 [facility] Specialist Comment on above: Result Comment: Low risk < 200mg/dL Borderline risk 201-239 mg/dl High risk > or equal to 240 Performed By: #### C BCAD, MG, URIC, LIPD, PHOS, CMP, DBIL #### [facility] [address] [place], [place] [id number] Cholesterol in HDL [Mass/Vol] 41 mg/dL Normal >40 [facility] Specialist Comment on above: Result Comment: High Cardiovascular Risk HDL <40 mg/dL Low Cardiovascular Risk HDL > or equal to 60 mg/dl Performed By: #### C BCAD, MG, URIC, LIPD, PHOS, CMP, DBIL #### [facility] [address] [place], [place] [id number] Cholesterol in LDL [Mass/Vol] 51 mg/dL Normal [facility] Comment on above: Result Comment: LDL ATP III CLASSIFICATION LDL less than 100 mg/dl Optimal LDL 100-129 mg/dl Near or above optimal LDL 130-159 Borderline high LDL 160-189 High LDL greater than 189 mg/dl Very High Performed By: #### C BCAD, MG, URIC, LIPD, PHOS, CMP, DBIL #### [facility] [address] [place], [place] [id number] Cholesterol in VLDL [Mass/Vol] 31 mg/dL Normal [facility] Specialist Comment on above: Performed By: #### C BCAD, MG, URIC, LIPD, PHOS, CMP, DBIL #### [facility] [address] [place], [place] [id number] Cholesterol.total/C holesterol in HDL [Mass ratio] 3 {ratio} Normal [facility] Personal Service Representative Comment on above: Performed By: #### C BCAD, MG, URIC, LIPD, PHOS, CMP, DBIL #### [facility] [address] [place], [place] [id number] Triglyceride [Mass/Vol] 156 mg/dL High 30-150 [facility] Personal Service Representative Comment on above: Result Comment: TRIG ATPIII CLASSIFICATIONS TRIG less than 150 mg/dl Normal TRIG 150-199 mg/dl Borderline High TRIG 200-500 mg/dl High TRIG greather than 500 mg/dl Very High Performed By: #### C BCAD, MG, URIC, LIPD, PHOS, CMP, DBIL #### [facility] [address] [place], [place] [id number] Magnesiumon 04-30-2021 Magnesium [Mass/Vol] 2.0 mg/dL Normal 1.5-2.3 [facility] Personal Service Representative Comment on above: Performed By: #### C BCAD, MG, URIC, LIPD, PHOS, CMP, DBIL #### [facility] [address] [place], [place] [id number] Phosphoruson 04-30-2021 Phosphate [Mass/Vol] 4.2 mg/dL Normal 2.2-4.4 [facility] Personal Service Representative Comment on above: Performed By: #### C BCAD, MG, URIC, LIPD, PHOS, CMP, DBIL #### [facility] [address] [place], [place] [id number] Uric Acidon 04-30-2021 URIC 5.3 mg/dL Normal 4.0-8.0 [facility] Personal Service Representative Comment on above: Result Comment: Refe rence range change 03/03/2017. Prior reference range F 2.4-5.7mg/dL. M 3.4-7.0 mg/dL. Performed By: #### C BCAD, MG, URIC, LIPD, PHOS, CMP, DBIL #### [facility] [address] [place], [place] [id number] Office Visit (Cardiology)on 04-23-2021 Follow-up visit Diagnoses/Problems Assessed Cardiac arrest with ventricular fibrillation (427.5,427.41) (I46.9,I49.01) Coronary artery disease involving [place] coronary artery of [place] heart without angina pectoris (414.01) (I25.10) ICD (implantable cardioverter-defibrillat or) in place (V45.02) (Z95.810) Hyperlipidemia (272.4) (E78.5) Ischemic cardiomyopathy (414.8) (I25.5) Former smoker (V15.82) (Z87.891) Quit in 2008 Renal transplant recipient (V42.0) (Z94.0) Orders SocHx: Former smoker Tobacco Use Screening; Status:Complete; Done: 23Apr2021 Patient Instructions By signing my name below, I, Leeanna Dukes LPN ,Bernabe, attest that this documentation has been prepared under the direction and in the presence of Dr. Derick Mac MD. All medical record entries made by the Marcelibe were at my direction and personally dictated by me. I have reviewed the chart and agree that the record accurately reflects my personal performance of the history, physical exam, discussion and plan. Please bring all medicines, vitamins, and herbal supplements with you when you come to the office. Prescriptions will not be filled unless you are compliant with your follow up appointments or have a follow up appointment scheduled as per instruction of your physician. Refills should be requested at the time of your visit. Keep Device checks as scheduled. Follow-up as needed only Chief Complaint VISHAL DUKE is being seen for follow-up of a hospitalization for [facility] [place] D/C 12/11/2020 ICD insert. History of Present Illness Patient is seen in follow-up of recent hospitalization. He presented there with cardiac arrest. For that he underwent pacemaker defibrillator implantation and did well. Since that time he said no angina CHF or arrhythmia symptomatology. 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 The device was interrogated it in their office and it appears to be functioning appropriately. Because of all the above he is pleased with his care. He'll be following up henceforth with the Gunn aircraft power plant assembler and we advised him were always happy to participate in his care if he needs help. I believe his ICD will be interrogated and managed through their office. We also note that his renal transplant was not injured as a result of the hospitalization and contrast administration and/or antibiotic therapy because of this he is pleased. Surgical History Problems History of Arteriovenous graft fistula creation procedure History of Cardiac catheterization with stent placement History of Complete colonoscopy History of Coronary artery bypass graft History of Kidney transplantation History of Pacemaker insertion History of [place] tooth extraction Current Meds Medication NameInstruction Aspirin Low Dose 81 MG Oral Tablet ChewableCHEW ONE TABLET BY MOUTH EVERY DAY Atorvastatin Calcium 80 MG Oral TabletTAKE 1 TABLET BY MOUTH EVERY DAY Clopidogrel Bisulfate 75 MG Oral TabletTAKE 1 TABLET DAILY. Farxiga 10 MG Oral TabletTAKE 1 TABLET BY MOUTH EVERY MORNING Lisinopril 5 MG Oral TabletTAKE 1 TABLET DAILY. Magnesium Oxide 400 (241.3 Mg) MG Oral TabletTAKE 1 TABLET BY MOUTH THREE TIMES DAILY Metoprolol Succinate ER 200 MG Oral Tablet Extended Release 24 Hour Mycophenolate Sodium 180 MG Oral Tablet Delayed ReleaseTAKE 3 TABLET Twice daily Nitroglycerin 0.4 MG Sublingual Tablet SublingualPLACE 1 TABLET UNDER THE TONGUE EVERY 5 MINUTES UP TO 3 DOSES NEEDED FOR CHEST PAIN. predniSONE 5 MG Oral TabletTAKE 1 TABLET DAILY. Tacrolimus 1 MG Oral CapsuleTAKE DIRECTED. Patient did not bring medication list or bottles. Updated verbally with patient Allergies Medication No Known Drug Allergies Recorded By: Juliet Bro; 03/29/2021 10:44:43 AM Social History Problems Caffeine use (V49.89) (Z78.9) 1-2 cups of coffee daily. Former smoker (V15.82) (Z87.891) Quit in 2008 No alcohol use No illicit drug use Vitals Vital Signs Recorded: 23Apr2021 05:40PMRecorded: 23Apr2021 03:22PM Odvlaqii062, RUE, Ygaeujo991, RUE, Sitting Ervealuel56, RUE, Gdukhxj99, RUE, Sitting Heart Rate61, R Brachial Artery Height5 ft 11 in Swarns038 lb BMI Amiukcohge89.57 kg/m2 BSA Calculated2.16 Tobacco Useb) No Fall Screeningc) Not medically indicated Physical Exam Constitutional: alert and in no acute distress. Eyes: no erythema, swelling or discharge from the eye . Neck: neck is supple, symmetric, trachea midline, no masses and no thyromegaly . Pulmonary: no increased work of breathing or signs of respiratory distress and lungs clear to auscultation. Cardiovascular: carotid pulses 2+ bilaterally with no bruit , JVP was normal, no thrills , regular rhythm, normal S1 and S2, no murmurs , pedal pulses 2+ bilaterally and no edema . Abdomen: abdomen non-tender (more content not included)... Normal [employer] Tobacco Screening.on 022 Fall risk assessment c) Not medically indicated -[facility] y [facility] DO Work Phone: Tobacco use status [facility] b) No MP-[facility] y 250 DO Work Phone: Bilirubin, [employer] 03-29-20 21 DBIL <0.2 Normal [facility] Personal Service Representative Comment on above: Result Comment: Refe rence range change 03/03/2017. Prior reference range 0.1-0.3 mg/dL. Performed By: #### C BCAD, MG, URIC, LIPD, PHOS, CMP, DBIL #### [facility] [address] [place], [place] [id number] Complete Blood Count with Au to Diffon 03-29-2021 Basophils (Bld) [#/Vol] 0.06 10*3/uL Normal 0.00-0.20 [facility] Personal Service Representative Comment on above: Performed By: #### C BCAD, MG, URIC, LIPD, PHOS, CMP, DBIL #### [facility] [address] [place], [place] [id number] Basophils/100 WBC (Bld) 0.7 % Normal [facility] Personal Service Representative Comment on above: Performed By: #### C BCAD, MG, URIC, LIPD, PHOS, CMP, DBIL #### [facility] [address] [place], [place] [id number] Eosinophils (Bld) [#/Vol] 0.13 10*3/uL Normal 0.02-0.50 [facility] Personal Service Representative Comment on above: Performed By: #### C BCAD, MG, URIC, LIPD, PHOS, CMP, DBIL #### [facility] [address] [place], [place] [id number] Eosinophils/100 WBC (Bld) 1.6 % Normal [facility] Specialist Comment on above: Performed By: #### C BCAD, MG, URIC, LIPD, PHOS, CMP, DBIL #### [facility] [address] [place], [place] [id number] Erythrocyte distribution width (RBC) [Ratio] 14.9 % Normal 11.0-15.0 [facility] Specialist Comment on above: Performed By: #### C BCAD, MG, URIC, LIPD, PHOS, CMP, DBIL #### [facility] [address] [place], [place] [id number] Hematocrit (Bld) [Volume fraction] 51.2 % High 38.5-50.0 [facility] Specialist Comment on above: Performed By: #### C BCAD, MG, URIC, LIPD, PHOS, CMP, DBIL #### [facility] [address] [place], [place] [id number] Hemoglobin (Bld) [Mass/Vol] 16.0 g/dL Normal 13.0-17.1 [facility] Specialist Comment on above: Performed By: #### C BCAD, MG, URIC, LIPD, PHOS, CMP, DBIL #### [facility] [address] [place], [place] [id number] Lymphocytes (Bld) [#/Vol] 0.9 10*3/uL Normal 0.9-3.9 [facility] Specialist Comment on above: Performed By: #### C BCAD, MG, URIC, LIPD, PHOS, CMP, DBIL #### [facility] [address] [place], [place] [id number] Lymphocytes/100 WBC (Bld) 10.7 % Normal [facility] Specialist Comment on above: Performed By: #### C BCAD, MG, URIC, LIPD, PHOS, CMP, DBIL #### [facility] [address] [place], [place] [id number] MCH (RBC) [Entitic mass] 28.9 pg Normal 27.0-33.0 [facility] Specialist Comment on above: Performed By: #### C BCAD, MG, URIC, LIPD, PHOS, CMP, DBIL #### [facility] [address] [place], [place] [id number] MCHC (RBC) [Mass/Vol] 31.3 g/dL Low 32.0-36.0 [facility] Personal Service Representative Comment on above: Performed By: #### C BCAD, MG, URIC, LIPD, PHOS, CMP, DBIL #### [facility] [address] [place], [place] [id number] MCV (RBC) [Entitic vol] 92 fL Normal 80-100 [facility] Personal Service Representative Comment on above: Performed By: #### C BCAD, MG, URIC, LIPD, PHOS, CMP, DBIL #### [facility] [address] [place], [place] [id number] Monocytes (Bld) [#/Vol] 0.7 10*3/uL Normal 0.2-0.9 [facility] Personal Service Representative Comment on above: Performed By: #### C BCAD, MG, URIC, LIPD, PHOS, CMP, DBIL #### [facility] [address] [place], [place] [id number] Monocytes/100 WBC (Bld) 8.1 % Normal [facility] Personal Service Representative Comment on above: Performed By: #### C BCAD, MG, URIC, LIPD, PHOS, CMP, DBIL #### [facility] [address] [place], [place] [id number] Neutrophils (Bld) [#/Vol] 6.4 10*3/uL Normal 1.5-7.8 [facility] Personal Service Representative Comment on above: Performed By: #### C BCAD, MG, URIC, LIPD, PHOS, CMP, DBIL #### [facility] [address] [place], [place] [id number] Neutrophils/100 WBC (Bld) 78.5 % Normal [facility] Personal Service Representative Comment on above: Performed By: #### C BCAD, MG, URIC, LIPD, PHOS, CMP, DBIL #### [facility] [address] [place], [place] [id number] Platelet mean volume (Bld) [Entitic vol] 11.20 fL Normal 7.50-12.50 [facility] Personal Service Representative Comment on above: Performed By: #### C BCAD, MG, URIC, LIPD, PHOS, CMP, DBIL #### [facility] [address] [place], [place] [id number] Platelets (Bld) [#/Vol] 295 10*3/uL Normal 140-400 [facility] Personal Service Representative Comment on above: Performed By: #### C BCAD, MG, URIC, LIPD, PHOS, CMP, DBIL #### [facility] [address] [place], [place] [id number] RBC (Bld) [#/Vol] 5.54 10*6/uL Normal 4.20-5.80 [facility] Personal Service Representative Comment on above: Performed By: #### C BCAD, MG, URIC, LIPD, PHOS, CMP, DBIL #### [facility] [address] [place], [place] [id number] RDW-SD 51.0 fL High 37.0-50.0 [facility] Personal Service Representative Comment on above: Performed By: #### C BCAD, MG, URIC, LIPD, PHOS, CMP, DBIL #### [facility] [address] [place], [place] [id number] WBC (Bld) [#/Vol] 8.2 10*3/uL Normal 3.8-11.0 [facility] Personal Service Representative Comment on above: Performed By: #### C BCAD, MG, URIC, LIPD, PHOS, CMP, DBIL #### [facility] [address] [place], [place] [id number] Comprehensive Metabolic Pane [facility] 03-29-2021 Albumin [Mass/Vol] 4.9 g/dL Normal 3.6-5.1 [place] Personal Service Representative Comment on above: Performed By: #### C BCAD, MG, URIC, LIPD, PHOS, CMP, DBIL #### [facility] [address] [place], [place] [id number] Albumin/Globulin [Mass ratio] 2.5 {ratio} Normal 1.0-2.5 [facility] Personal Service Representative Comment on above: Performed By: #### C BCAD, MG, URIC, LIPD, PHOS, CMP, DBIL #### [facility] [address] [place], [place] [id number] ALP [Catalytic activity/Vol] 86 U/L Normal 40-129 [facility] Specialist Comment on above: Performed By: #### C BCAD, MG, URIC, LIPD, PHOS, CMP, DBIL #### [facility] [address] [place], [place] [id number] ALT [Catalytic activity/Vol] 33 U/L Normal 9-46 [facility] Specialist Comment on above: Result Comment: 03/17 Female reference range changed. Performed By: #### C BCAD, MG, URIC, LIPD, PHOS, CMP, DBIL #### [facility] [address] [place], [place] [id number] Anion gap [Moles/Vol] 18 mmol/L Normal 12-20 [facility] Specialist Comment on above: Result Comment: Effe ctive 04/22/2019 reference range changed. Performed By: #### C BCAD, MG, URIC, LIPD, PHOS, CMP, DBIL #### [facility] [address] [place], [place] [id number] AST [Catalytic activity/Vol] 27 U/L Normal 10-40 [facility] Specialist Comment on above: Performed By: #### C BCAD, MG, URIC, LIPD, PHOS, CMP, DBIL #### [facility] [address] [place], [place] [id number] Bilirubin [Mass/Vol] 0.38 mg/dL Normal 0.30-1.20 [facility] Specialist Comment on above: Performed By: #### C BCAD, MG, URIC, LIPD, PHOS, CMP, DBIL #### [facility] [address] [place], [place] [id number] BUN/CREA 12 Ratio Normal 6-22 [facility] Specialist Comment on above: Performed By: #### C BCAD, MG, URIC, LIPD, PHOS, CMP, DBIL #### [facility] [address] [place], [place] [id number] Calcium [Mass/Vol] 10.3 mg/dL High 8.6-10.2 [place] [facility] Comment on above: Performed By: #### C BCAD, MG, URIC, LIPD, PHOS, CMP, DBIL #### [facility] [address] [place], [place] [id number] Chloride [Moles/Vol] 105 mmol/L Normal 98-107 [facility] Comment on above: Performed By: #### C BCAD, MG, URIC, LIPD, PHOS, CMP, DBIL #### [facility] [address] [place], [place] [id number] CO2 [Moles/Vol] 23 mmol/L Normal 20-31 [facility] Comment on above: Performed By: #### C BCAD, MG, URIC, LIPD, PHOS, CMP, DBIL #### [facility] [address] [place], [place] [id number] Creatinine [Mass/Vol] 1.2 mg/dL Normal 0.7-1.4 [facility] Comment on above: Performed By: #### C BCAD, MG, URIC, LIPD, PHOS, CMP, DBIL #### [facility] [address] [place], [place] [id number] eGFRAA 79 mL/min/1.73m2 Normal >60 [facility] Comment on above: Performed By: #### C BCAD, MG, URIC, LIPD, PHOS, CMP, DBIL #### [facility] [address] [place], [place] [id number] eGFRNAA 65 mL/min/1.73m2 Normal >60 [facility] Comment on above: Performed By: #### C BCAD, MG, URIC, LIPD, PHOS, CMP, DBIL #### [facility] [address] [place], [place] [id number] Globulin (S) [Mass/Vol] 2.0 g/dL Normal 1.9-3.7 [facility] Comment on above: Performed By: #### C BCAD, MG, URIC, LIPD, PHOS, CMP, DBIL #### [facility] [address] [place], [place] [id number] Glucose [Mass/Vol] 125 mg/dL High 65-99 [facility] Comment on above: Result Comment: For FASTING Glucose --- ADA reference ranges: Normal 65-99 mg/dl Prediabetes 100-125 Diabetes >/= 126 Performed By: #### C BCAD, MG, URIC, LIPD, PHOS, CMP, DBIL #### [facility] [address] [place], [place] [id number] Potassium [Moles/Vol] 4.7 mmol/L Normal 3.5-5.5 [facility] Personal Service Representative Comment on above: Performed By: #### C BCAD, MG, URIC, LIPD, PHOS, CMP, DBIL #### [facility] [address] [place], [place] [id number] Protein [Mass/Vol] 6.9 g/dL Normal 6.1-8.1 [facility] Personal Service Representative Comment on above: Performed By: #### C BCAD, MG, URIC, LIPD, PHOS, CMP, DBIL #### [facility] [address] [place], [place] [id number] Sodium [Moles/Vol] 141 mmol/L Normal 135-146 [facility] Personal Service Representative Comment on above: Performed By: #### C BCAD, MG, URIC, LIPD, PHOS, CMP, DBIL #### [facility] [address] [place], [place] [id number] Urea nitrogen [Mass/Vol] 14 mg/dL Normal 7-25 [facility] Personal Service Representative Comment on above: Performed By: #### C BCAD, MG, URIC, LIPD, PHOS, CMP, DBIL #### [facility] [address] [place], [place] [id number] Lipid Panelon 03-29-2021 Cholesterol [Mass/Vol] 123 mg/dL Low 125-200 [facility] Personal Service Representative Comment on above: Result Comment: Low risk < 200mg/dL Borderline risk 201-239 mg/dl High risk > or equal to 240 Performed By: #### C BCAD, MG, URIC, LIPD, PHOS, CMP, DBIL #### [facility] [address] [place], [place] [id number] Cholesterol in HDL [Mass/Vol] 42 mg/dL Normal >40 [facility] Personal Service Representative Comment on above: Result Comment: High Cardiovascular Risk HDL <40 mg/dL Low Cardiovascular Risk HDL > or equal to 60 mg/dl Performed By: #### C BCAD, MG, URIC, LIPD, PHOS, CMP, DBIL #### [facility] [address] [place], [place] [id number] Cholesterol in LDL [Mass/Vol] 58 mg/dL Normal [facility] Personal Service Representative Comment on above: Result Comment: LDL ATP III CLASSIFICATION LDL less than 100 mg/dl Optimal LDL 100-129 mg/dl Near or above optimal LDL 130-159 Borderline high LDL 160-189 High LDL greater than 189 mg/dl Very High Performed By: #### C BCAD, MG, URIC, LIPD, PHOS, CMP, DBIL #### [facility] [address] [place], [place] [id number] Cholesterol in VLDL [Mass/Vol] 23 mg/dL Normal [facility] Personal Service Representative Comment on above: Performed By: #### C BCAD, MG, URIC, LIPD, PHOS, CMP, DBIL #### [facility] [address] [place], [place] [id number] Cholesterol.total/C holesterol in HDL [Mass ratio] 3 {ratio} Normal [facility] Personal Service Representative Comment on above: Performed By: #### C BCAD, MG, URIC, LIPD, PHOS, CMP, DBIL #### [facility] [address] [place], [place] [id number] Triglyceride [Mass/Vol] 113 mg/dL Normal 30-150 [facility] Personal Service Representative Comment on above: Result Comment: TRIG ATPIII CLASSIFICATIONS TRIG less than 150 mg/dl Normal TRIG 150-199 mg/dl Borderline High TRIG 200-500 mg/dl High TRIG greather than 500 mg/dl Very High Performed By: #### C BCAD, MG, URIC, LIPD, PHOS, CMP, DBIL #### [facility] [address] [place], [place] [id number] Magnesiumon 03-29-2021 Magnesium [Mass/Vol] 1.9 mg/dL Normal 1.5-2.3 [facility] Personal Service Representative Comment on above: Performed By: #### C BCAD, MG, URIC, LIPD, PHOS, CMP, DBIL #### [facility] [address] [place], [place] [id number] Phosphoruson 03-29-2021 Phosphate [Mass/Vol] 4.1 mg/dL Normal 2.2-4.4 [facility] Personal Service Representative Comment on above: Performed By: #### C BCAD, MG, URIC, LIPD, PHOS, CMP, DBIL #### [facility] [address] [place], [place] [id number] Uric Acidon 03-29-2021 URIC 7.5 mg/dL Normal 4.0-8.0 [facility] Personal Service Representative Comment on above: Result Comment: Refe rence range change 03/03/2017. Prior reference range F 2.4-5.7mg/dL. M 3.4-7.0 mg/dL. Performed By: #### C BCAD, MG, URIC, LIPD, PHOS, CMP, DBIL #### [facility] [address] [place] [id number] CCC CHEST 2 VWSon 12-24-2020 [facility] CHEST 2 [facility] Department of Radiology [address] [place] [address] == Patient Name: VISHAL UDKE : 1960 Sex: M Age: Race: White Pt. 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 COMPARISON: 08/19/2020 FINDINGS: Stable cardiomediastinal silhouette. There is no focal opacity, effusion or pneumothorax. Right lower lung scarring. Expiratory changes. Improved appearance of the chest from August 19, 2020. IMPRESSION: No evidence of acute cardiopulmonary process. Electronically signed: Giovana Garrido. Transcribed by: [email or web address], User Resident: Electronically Signed by: GIOVANA GARRIDO @ 12/25/2020 12:24 PM Normal [facility] Comment on above: Order Comment: No: D o not add to previous draw CV'D BY [facility] AT 1240 Glucose Poct Glucometerson 0 12-12-2020 Commemt1 Glu2: Cleaned Meter Normal [facility] Comment on above: Result Comment: PERF ORMED BY: [place] [address] PATHOLOGIST RESOLUTION REP SHYANN OLIVIER M.D. Performed By: #### B MP, HS TROP, CBC, PT, PTT, BNP #### [facility] [address] [place] [address] Glucose [Mass/Vol] 147 mg/dL Normal [facility] Comment on above: Result Comment: [place] Glucose Reference Range is dependent on time and content of last meal. Glucose of more than 200 mg/dL in a nonstressed, ambulatory subject supports the diagnosis of Diabetes Mellitus. Performed By: #### B MP, HS TROP, CBC, PT, PTT, BNP #### [facility] [address] Glucose [Mass/Vol] 107 mg/dL Normal [facility] Comment on above: Result Comment: [place] Glucose Reference Range is dependent on time and content of last meal. Glucose of more than 200 mg/dL in a nonstressed, ambulatory subject supports the diagnosis of Diabetes Mellitus. PERFORMED BY: [facility] [address] [place] [address] PATHOLOGIST RESOLUTION REP SHYANN OLIVIER M.D. Performed By: #### B MP, HS TROP, CBC, PT, PTT, BNP #### [address] [address] [facility] XR chest 2V*on 12-12-2020 XR chest 2V* [facility] [place] [address] [place] [address] XRay Report Signed Patient: Vishal Duke MR#: [id number] : 1960 Acct:[id number] Age/Sex: 59 / M ADM Date: 12/08/20 Loc: Room: [address] [place] [address] Type: ADM IN Attending Dr: Leonardo Storey MD Ordering Provider: Derick Mac MD Date of Service: 12/12/20 XR/XR chest 2V*: Rule out pneumothorax on only new implants cases in am Copies to: MD Derick Cheng MD Chest 12/12/2020. CLINICAL DATA: Follow-up cardiac pacemaker/defibrillator placement. FINDINGS: Portable frontal and lateral views of the chest were obtained and are compared with a previous study from the prior day. The patient is status post sternotomy and pacemaker/defibrillator placement. The cardiac silhouette is normal in size. The pulmonary vasculature is within normal limits. There is mild atelectasis in the right lung base. No segmental or lobar pulmonary consolidation or collapse is identified. No pneumothorax or pleural effusion is seen. XR/XR chest 2V* IMPRESSION: Mild right basilar atelectasis. Impression dictated by: Faraz Farah Jr., M.D.12/12/2020 9:15 AM Dictation Location: [place] [address] Transcribed By: [facility] 12/12/20914 Dictated By: Faraz Farah Jr, MD 12/12/20908 Signed By: 12/12/20914 [facility] Basic Metabolic Panelon 08-2 Calcium [Mass/Vol] 8.9 mg/dL Normal 8.2-10.2 [facility] Comment on above: Performed By: #### B MP, HS TROP, CBC, PT, PTT, BNP #### [address] Chloride [Moles/Vol] 105 mmol/L Normal 95-114 [facility] Comment on above: Performed By: #### B MP, HS TROP, CBC, PT, PTT, BNP #### [address] CO2 [Moles/Vol] 22.1 mmol/L Normal 22.0-30.0 [facility] Comment on above: Performed By: #### B MP, HS TROP, CBC, PT, PTT, BNP #### [address] Creatinine [Mass/Vol] 1.08 mg/dL Normal 0.64-1.27 [facility] Comment on above: Performed By: #### B MP, HS TROP, CBC, PT, PTT, BNP #### [address] Creatinine Clr Calc Pharmacy 78.44 [facility] Comment on above: Result Comment: PERF ORMED BY: [place] [address] PATHOLOGIST RESOLUTION REP SHYANN OLIVIER M.D. Performed By: #### B MP, HS TROP, CBC, PT, PTT, BNP #### [address] Estimated GFR ( Nata > 60 [facility] Comment on above: Result Comment: GFR estimated reference range: According to KDOQI guidelines, <60 ml/min/1.73m2 is sufficient to diagnose a patient with chronic kidney disease. Performed By: #### B MP, HS TROP, CBC, PT, PTT, BNP #### [address] Estimated GFR (Non- Am > 60 [facility] Comment on above: Performed By: #### B MP, HS TROP, CBC, PT, PTT, BNP #### [address] Glucose [Mass/Vol] 138 mg/dL High 70-100 [facility] Comment on above: Result Comment: [facility] Glucose Reference Range is dependent on time and content of last meal. Glucose of more than 200 mg/dL in a nonstressed, ambulatory subject supports the diagnosis of Diabetes Mellitus. ADA recommended reference range Performed By: #### B MP, HS TROP, CBC, PT, PTT, BNP #### [address] Potassium [Moles/Vol] 4.2 mmol/L Normal 3.5-5.1 [facility] Comment on above: Performed By: #### B MP, HS TROP, CBC, PT, PTT, BNP #### [address] Sodium [Moles/Vol] 138 mmol/L Normal 136-146 [facility] Comment on above: Performed By: #### B MP, HS TROP, CBC, PT, PTT, BNP #### [address] Urea nitrogen [Mass/Vol] 11 mg/dL Normal 9-23 [facility] Comment on above: Performed By: #### B MP, HS TROP, CBC, PT, PTT, BNP #### [address] Complete Blood Count Auto Di ffon 12-11-2020 Basophils (Bld) [#/Vol] 0.1 10*3/uL Normal 0.0-0.2 [facility] Comment on above: Result Comment: PERF ORMED BY: [place] [address] PATHOLOGIST RESOLUTION REP SHYANN OLIVIER M.D. Performed By: #### B MP, HS TROP, CBC, PT, PTT, BNP #### [address] Basophils/100 WBC (Bld) 0.7 % Normal . [facility] Comment on above: Performed By: #### B MP, HS TROP, CBC, PT, PTT, BNP #### [address] Eosinophils (Bld) [#/Vol] 0.1 10*3/uL Normal 0.0-0.45 [facility] Comment on above: Performed By: #### B MP, HS TROP, CBC, PT, PTT, BNP #### [address] Eosinophils/100 WBC (Bld) 1.3 % Normal . [facility] Comment on above: Performed By: #### B MP, HS TROP, CBC, PT, PTT, BNP #### [address] Erythrocyte distribution width (RBC) [Ratio] 15.2 % High 12.0-14.8 [facility] Comment on above: Performed By: #### B MP, HS TROP, CBC, PT, PTT, BNP #### [address] Hematocrit (Bld) [Volume fraction] 38.0 % Low 38.8-50.0 [facility] Comment on above: Performed By: #### B MP, HS TROP, CBC, PT, PTT, BNP #### [address] Hemoglobin (Bld) [Mass/Vol] 13.0 g/dL Normal 13.0-17.0 [facility] Comment on above: Performed By: #### B MP, HS TROP, CBC, PT, PTT, BNP #### [address] Lymphocytes (Bld) [#/Vol] 0.7 10*3/uL Low 1.00-4.8 [facility] Comment on above: Performed By: #### B MP, HS TROP, CBC, PT, PTT, BNP #### [address] Lymphocytes/100 WBC (Bld) 7.7 % Normal . [facility] Comment on above: Performed By: #### B MP, HS TROP, CBC, PT, PTT, BNP #### [place] [id number] [place] MCH (RBC) [Entitic mass] 31.5 pg Normal 27.5-35.2 [facility] Comment on above: Performed By: #### B MP, HS TROP, CBC, PT, PTT, BNP #### [address] MCV (RBC) [Entitic vol] 91.7 fL Normal 83.5-101 [facility] Comment on above: Performed By: #### B MP, HS TROP, CBC, PT, PTT, BNP #### [address] Mean Corpuscular HGB Conc 34.3 g/dL Normal 32.5-35.6 [facility] Comment on above: Performed By: #### B MP, HS TROP, CBC, PT, PTT, BNP #### [address] Monocytes (Bld) [#/Vol] 0.9 10*3/uL High 0.0-0.8 [facility] Comment on above: Performed By: #### B MP, HS TROP, CBC, PT, PTT, BNP #### [address] Monocytes/100 WBC (Bld) 9.4 % Normal . [facility] Comment on above: Performed By: #### B MP, HS TROP, CBC, PT, PTT, BNP #### [address] Neutrophils (Bld) [#/Vol] 7.5 10*3/uL Normal 1.8-7.7 [facility] Comment on above: Performed By: #### B MP, HS TROP, CBC, PT, PTT, BNP #### [address] Neutrophils/100 WBC (Bld) 80.9 % Normal . [facility] Comment on above: Performed By: #### B MP, HS TROP, CBC, PT, PTT, BNP #### [place] [address] [place] Nucleated RBC/100 WBC (Bld) [Ratio] 0.0 % Normal 0-0.5 [facility] Comment on above: Performed By: #### B MP, HS TROP, CBC, PT, PTT, BNP #### [address] Platelet mean volume (Bld) [Entitic vol] 7.6 fL Normal 6.6-10.1 [facility] Comment on above: Performed By: #### B MP, HS TROP, CBC, PT, PTT, BNP #### [address] Platelets (Bld) [#/Vol] 385 10*3/uL Normal 150-450 [facility] Comment on above: Performed By: #### B MP, HS TROP, CBC, PT, PTT, BNP #### [address] RBC (Bld) [#/Vol] 4.14 10*6/uL Normal 3.90-5.60 [facility] Comment on above: Performed By: #### B MP, HS TROP, CBC, PT, PTT, BNP #### [address] WBC (Bld) [#/Vol] 9.3 10*3/uL Normal 4.5-11.0 [facility] Comment on above: Performed By: #### B MP, HS TROP, CBC, PT, PTT, BNP #### [address] Glucose Poct Glucometerson 0 12-11-2020 Glucose [Mass/Vol] 129 mg/dL Normal [facility] Comment on above: Result Comment: [facility] Glucose Reference Range is dependent on time and content of last meal. Glucose of more than 200 mg/dL in a nonstressed, ambulatory subject supports the diagnosis of Diabetes Mellitus. PERFORMED BY: [place] [address] PATHOLOGIST RESOLUTION REP SHYANN OLIVIER M.D. Performed By: #### B MP, HS TROP, CBC, PT, PTT, BNP #### [facility] [address] [place] [id number] [facility] Partial Thromboplastin Timeo n 12-11-2020 aPTT Coag (Bld) [Time] 32.7 s Normal 25.1-36.5 [facility] Comment on above: Result Comment: PERF ORMED BY: [place] [address] PATHOLOGIST RESOLUTION REP SHYANN OLIVIER M.D. Performed By: #### B MP, HS TROP, CBC, PT, PTT, BNP #### [place] [id number] [facility] Prothrombin Time INRon 12-11 INR Coag (PPP) [Relative time] 1.2 {INR} Normal [facility] Comment on above: Result Comment: INR Therapeutic Range A) Pre- and Peroperative OAT started two weeks before surgery. NOT HIP SURGERY: 1.5 - 2.5 HIP SURGERY: 2 - 3 B) Primary and secondary prevention of venous THROMBOSIS: 2 - 3 C) Active venous thrombosis, pulmonary embolism and prevention of recurrent venous thrombosis: 2 - 3 D) Prevention of arterial thromboembolism including patients with mechanical heart valves: 3 - 4.5 Performed By: #### B MP, HS TROP, CBC, PT, PTT, BNP #### [place] [id number] [facility] PT Coag (PPP) [Time] 13.8 s High 9.0-12.9 [facility] Comment on above: Performed By: #### B MP, HS TROP, CBC, PT, PTT, BNP #### [place] [id number] [place] XR chest 1V portableon 12-11 XR chest 1V portable [facility] [place] [address] [place] [address] XRay Report Signed Patient: Vishal Duke MR#: [id number] : 1960 Acct:[id number] Age/Sex: 59 / M ADM Date: 12/08/20 Loc: Room: [address] [place] [address] Type: ADM IN Attending Dr: Leonardo Storey MD Ordering Provider: Derick Mac MD Date of Service: 12/11/20 XR/XR chest 1V portable: PACER Copies to: MD Derick Cheng MD PORTABLE CHEST(1215 hours): CLINICAL HISTORY: Status post pacemaker insertion. COMPARISON: 12/10/2020 FINDINGS: A single AP portable view of the chest was obtained in sitting position. A left subclavian cardiac pacemaker is noted. There appears unremarkable positions of the pacemaker leads. There is no pneumothorax. The transverse diameter of the cardiopericardial silhouette is normal. The pulmonary vascularity is unremarkable. Slight atelectasis at the right lung base is noted. The remaining lung woody show mild chronic interstitial thickening. Electrocardiographic leads are noted. XR/XR chest 1V portable IMPRESSION: A LEFT SUBCLAVIAN CARDIAC PACEMAKER IN PLACE, NO PNEUMOTHORAX. Impression dictated by: Biju Ag M.D.12/11/2020 12:40 PM Dictation Location: [place] [address] Transcribed By: [facility] 12/11/20 1240 Dictated By: Biju Ag MD 12/11/20 1236 Signed By: 12/11/20 1240 Normal [facility] Complete Blood Count Auto Di ffon 12-10-2020 Basophils (Bld) [#/Vol] 0.0 10*3/uL Normal 0.0-0.2 [facility] Comment on above: Result Comment: PERF ORMED BY: [place] [address] PATHOLOGIST RESOLUTION REP SHYANN OLIVIER M.D. Performed By: #### B MP, HS TROP, CBC, PT, PTT, BNP #### [facility] [address] [place] [address] [place] Basophils/100 WBC (Bld) 0.3 % Normal . [facility] Comment on above: Performed By: #### B MP, HS TROP, CBC, PT, PTT, BNP #### [facility] [address] [place] [id number] [place] Eosinophils (Bld) [#/Vol] 0.1 10*3/uL Normal 0.0-0.45 [facility] Comment on above: Performed By: #### B MP, HS TROP, CBC, PT, PTT, BNP #### [address] Eosinophils/100 WBC (Bld) 0.5 % Normal . [facility] Comment on above: Performed By: #### B MP, HS TROP, CBC, PT, PTT, BNP #### [address] Erythrocyte distribution width (RBC) [Ratio] 15.1 % High 12.0-14.8 [facility] Comment on above: Performed By: #### B MP, HS TROP, CBC, PT, PTT, BNP #### [address] Hematocrit (Bld) [Volume fraction] 39.5 % Normal 38.8-50.0 [facility] Comment on above: Performed By: #### B MP, HS TROP, CBC, PT, PTT, BNP #### [address] Hemoglobin (Bld) [Mass/Vol] 13.1 g/dL Normal 13.0-17.0 [facility] Comment on above: Performed By: #### B MP, HS TROP, CBC, PT, PTT, BNP #### [address] Lymphocytes (Bld) [#/Vol] 0.5 10*3/uL Low 1.00-4.8 [facility] Comment on above: Performed By: #### B MP, HS TROP, CBC, PT, PTT, BNP #### [address] Lymphocytes/100 WBC (Bld) 4.0 % Normal . [facility] Comment on above: Performed By: #### B MP, HS TROP, CBC, PT, PTT, BNP #### [address] MCH (RBC) [Entitic mass] 31.2 pg Normal 27.5-35.2 [facility] Comment on above: Performed By: #### B MP, HS TROP, CBC, PT, PTT, BNP #### [address] MCV (RBC) [Entitic vol] 94.1 fL Normal 83.5-101 [facility] Comment on above: Performed By: #### B MP, HS TROP, CBC, PT, PTT, BNP #### [address] Mean Corpuscular HGB Conc 33.2 g/dL Normal 32.5-35.6 [facility] Comment on above: Performed By: #### B MP, HS TROP, CBC, PT, PTT, BNP #### [address] Monocytes (Bld) [#/Vol] 0.8 10*3/uL Normal 0.0-0.8 [facility] Comment on above: Performed By: #### B MP, HS TROP, CBC, PT, PTT, BNP #### [address] Monocytes/100 WBC (Bld) 6.6 % Normal . [facility] Comment on above: Performed By: #### B MP, HS TROP, CBC, PT, PTT, BNP #### [address] Neutrophils (Bld) [#/Vol] 10.5 10*3/uL High 1.8-7.7 [facility] Comment on above: Performed By: #### B MP, HS TROP, CBC, PT, PTT, BNP #### [address] Neutrophils/100 WBC (Bld) 88.6 % Normal . [facility] Comment on above: Performed By: #### B MP, HS TROP, CBC, PT, PTT, BNP #### [address] Nucleated RBC/100 WBC (Bld) [Ratio] 0.1 % Normal 0-0.5 [facility] Comment on above: Performed By: #### B MP, HS TROP, CBC, PT, PTT, BNP #### [address] Platelet mean volume (Bld) [Entitic vol] 8.1 fL Normal 6.6-10.1 [facility] Comment on above: Performed By: #### B MP, HS TROP, CBC, PT, PTT, BNP #### [address] Platelets (Bld) [#/Vol] 403 10*3/uL Normal 150-450 [facility] Comment on above: Performed By: #### B MP, HS TROP, CBC, PT, PTT, BNP #### [address] RBC (Bld) [#/Vol] 4.20 10*6/uL Normal 3.90-5.60 [facility] Comment on above: Performed By: #### B MP, HS TROP, CBC, PT, PTT, BNP #### [address] WBC (Bld) [#/Vol] 11.9 10*3/uL High 4.5-11.0 [facility] Comment on above: Performed By: #### B MP, HS TROP, CBC, PT, PTT, BNP #### [address] Comprehensive Metabolic Pane nitin 12-10-2020 Albumin [Mass/Vol] 3.1 g/dL Low 3.2-5.5 [facility] Comment on above: Result Comment: --- 12/10/20 124 --- Alb previously reported as: 2.8 L gm/dL Performed By: #### B MP, HS TROP, CBC, PT, PTT, BNP #### [address] Albumin/Globulin [Mass ratio] 0.9 {ratio} Normal [facility] Comment on above: Result Comment: --- 12/10/20 124 --- A/G Ratio previously reported as: 0.8 Performed By: #### B MP, HS TROP, CBC, PT, PTT, BNP #### [address] ALP [Catalytic activity/Vol] 98 U/L High 32-92 [facility] Comment on above: Result Comment: --- 12/10/201241 --- Alk Phos previously reported as: 91 U/L Performed By: #### B MP, HS TROP, CBC, PT, PTT, BNP #### [address] ALT [Catalytic activity/Vol] 123 U/L High 10-60 [facility] Comment on above: Result Comment: --- 12/10/201241 --- ALT previously reported as: 116 H U/L Performed By: #### B MP, HS TROP, CBC, PT, PTT, BNP #### [address] AST [Catalytic activity/Vol] 91 U/L High 10-42 [facility] Comment on above: Result Comment: --- 12/10/201241 --- AST previously reported as: 82 H U/L Performed By: #### B MP, HS TROP, CBC, PT, PTT, BNP #### [address] Bilirubin [Mass/Vol] 0.7 mg/dL Normal 0.3-1.2 [facility] Comment on above: Result Comment: --- 12/10/201240 --- TOTAL BILI previously reported as: 0.9 mg/dL Performed By: #### B MP, HS TROP, CBC, PT, PTT, BNP #### [address] Calcium [Mass/Vol] 9.0 mg/dL Normal 8.2-10.2 [facility] Comment on above: Result Comment: --- 12/10/201240 --- CA previously reported as: 8.2 mg/dL Performed By: #### B MP, HS TROP, CBC, PT, PTT, BNP #### [facility] [address] Chloride [Moles/Vol] 99 mmol/L Normal 95-114 [facility] Comment on above: Result Comment: --- 12/10/201240 --- CL previously reported as: 97 mmol/L Performed By: #### B MP, HS TROP, CBC, PT, PTT, BNP #### [address] CO2 [Moles/Vol] 20.4 mmol/L Low 22.0-30.0 [facility] Comment on above: Result Comment: --- 12/10/201240 --- CO2 previously reported as: 21.7 L mmol/L Performed By: #### B MP, HS TROP, CBC, PT, PTT, BNP #### [address] Creatinine [Mass/Vol] 1.09 mg/dL Normal 0.64-1.27 [facility] Comment on above: Result Comment: --- 12/10/201239 --- Creat previously reported as: 1.01 mg/dL Performed By: #### B MP, HS TROP, CBC, PT, PTT, BNP #### [address] Creatinine Clr Calc Pharmacy 77.72 [facility] Comment on above: Result Comment: --- 12/10/201239 --- Creat Calc PHA previously reported as: 83.87 PERFORMED BY: [place] [address] PATHOLOGIST RESOLUTION REP SHYANN OLIVIER M.D. Performed By: #### B MP, HS TROP, CBC, PT, PTT, BNP #### [address] Estimated GFR ( Nata > 60 [facility] Comment on above: Result Comment: --- 12/10/201226 --- GFReAA previously reported as: > 60 mL/Min GFR estimated reference range: According to KDOQI guidelines, <60 ml/min/1.73m2 is sufficient to diagnose a patient with chronic kidney disease. Performed By: #### B MP, HS TROP, CBC, PT, PTT, BNP #### [facility] [address] Estimated GFR (Non- Am > 60 Normal [facility] Comment on above: Result Comment: --- 12/10/207 --- GFRe previously reported as: > 60 mL/Min Performed By: #### B MP, HS TROP, CBC, PT, PTT, BNP #### [facility] [address] Globulin (S) [Mass/Vol] 3.3 g/dL Normal [facility] Comment on above: Result Comment: --- 12/10/20 1227 --- Glob previously reported as: 3.3 gm/dL Performed By: #### B MP, HS TROP, CBC, PT, PTT, BNP #### [address] Glucose [Mass/Vol] 160 mg/dL High 70-100 [facility] Comment on above: Result Comment: Resu lts called at 0722 on 12/10/20 --- 12/10/20 1239 --- Glu previously reported as: 596 #*H mg/dL Results called at 0722 on 12/10/20 Random Glucose Reference Range is dependent on time and content of last meal. Glucose of more than 200 mg/dL in a nonstressed, ambulatory subject supports the diagnosis of Diabetes Mellitus. ADA recommended reference range Performed By: #### B MP, HS TROP, CBC, PT, PTT, BNP #### [facility] [address] Potassium [Moles/Vol] 4.1 mmol/L Normal 3.5-5.1 [facility] Comment on above: Result Comment: --- 12/10/20 1241 --- K previously reported as: 3.8 mmol/L Performed By: #### B MP, HS TROP, CBC, PT, PTT, BNP #### [address] Protein [Mass/Vol] 6.4 g/dL Normal 6.1-7.9 [facility] Comment on above: Result Comment: --- 12/10/20 1241 --- TP previously reported as: 6.1 gm/dL Performed By: #### B MP, HS TROP, CBC, PT, PTT, BNP #### [facility] [address] Sodium [Moles/Vol] 134 mmol/L Low 136-146 [facility] Comment on above: Result Comment: --- 12/10/20 1241 --- NA previously reported as: 128 # L mmol/L Performed By: #### B MP, HS TROP, CBC, PT, PTT, BNP #### [facility] [address] Urea nitrogen [Mass/Vol] 10 mg/dL Normal - [facility] Comment on above: Result Comment: --- 12/10/20 1239 --- BUN previously reported as: 10 mg/dL Performed By: #### B MP, HS TROP, CBC, PT, PTT, BNP #### [facility] [address] ECG 12 lead ECGon 12-10-2020 ECG 12 lead ECG [place] [address] Electrocardiograph Report Signed Patient: Vishal Duke MR#: [id number] : 1960 Acct:[id number] Age/Sex: 59 / M ADM Date: 12/08/20 Loc: Room: [address] [place] [address] Type: ADM IN Attending Dr: Leonardo Storey MD Ordering Provider: Theo Nieto DO Date of Service: 12/10/20 ECG/ECG 12 lead ECG: Post Angioplasty Procedure in AM Copies to: Test Reason : Blood Pressure : / mmHG Vent. Rate : 074 BPM Atrial Rate : 074 BPM P-R Int : 162 ms QRS Dur : 076 ms QT Int : 390 ms P-R-T Axes : 042 006 176 degrees QTc Int : 432 ms Normal sinus rhythm Nonspecific ST and T wave abnormality Abnormal ECG When compared with ECG of 09-DEC-2020 08:16, Nonspecific T wave abnormality now evident in Lateral leads Confirmed by DAT FRANK [facility], KADEN ([id number]) on 12/10/2020 9:00:58 AM Referred By: Electronically Signed By:KADEN DAUGHERTY MD [facility] Transcribed By: MUS Dictated By: Kaden Daugherty MD, [facility] 12/10/20 0652 Signed By: 12/10/20 0901 Normal [facility] echo transthoracicon [facility] echo transthoracic [place] [address] Echocardiogram Signed Patient: Vishal Duke MR#: [id number] : 1960 Acct:[id number] Age/Sex: 59 / M ADM Date: 12/08/20 Loc: Room: [address] [place] [address] Type: ADM IN Attending Dr: Leonardo Storey MD Ordering Provider: Leonardo Storey MD Date of Service: 12/09/20 [facility] echo transthoracic: torsades de pointes Copies to: MD Giovana Cheng DO Weight: 192 lb Performed By: Dominique Garza RDCS BSA: 2.1 m2 BP: 106/56 mmHg HR: 75 Reason For Study: torsades de pointes History: CAD. CABG. PCI. Kidney Transplant. Former Smoker. Family history of CAD. Interpretation Summary The left ventricular size and thickness are normal. Ejection Fraction = 20-25%. There is left ventricular diastolic dysfunction. There is apical dyskinesis. There is moderate global hypokinesis of the left ventricle. There is severe anterior wall hypokinesis. The left atrium appears mildly dilated. There is mild mitral regurgitation. There is trace tricuspid regurgitation. Compared to echo of 10/19/16, there has been significant decline in lvef and the wall motion changes are new. Procedure/Quality: A two-dimensional transthoracic echocardiogram with color flow, Doppler and injection of contrast agent Definity was performed. The study was technically fair in quality. Left Ventricle: The left ventricular size and thickness are normal. Upper septal hypertrophy (sigmoid septum), normal variant. Cannot exclude LV aneurysm formation. Ejection Fraction = 20-25%. There is left ventricular diastolic dysfunction. There is apical dyskinesis. There is moderate global hypokinesis of the left ventricle. There is severe anterior wall hypokinesis. No left ventricular thrombus or mass is seen. Left Atrium: The left atrium appears mildly dilated. Right Atrium: The right atrium appears normal in size. Right Ventricle: The right ventricle is normal size. The right ventricular systolic function is mildly reduced. Aortic Valve: The aortic valve is normal in structure and function. No hemodynamically significant valvular aortic stenosis. No aortic regurgitation is present. Mitral Valve: The mitral valve is normal. There is no mitral valve stenosis. There is mild mitral regurgitation. Tricuspid Valve: The tricuspid valve is normal in structure and function. There is trace tricuspid regurgitation. Pulmonic Valve: The pulmonic valve is not well seen, but is grossly normal. Arteries: The aortic root is normal size. Pericardium/Pleura: No pericardial effusion seen. IVC/Hepatic Viens: The inferior vena cava was not visualized during the exam. Measurements with Normals IVSd: 0.87 cm (0.7-1.1 cm)LVIDd: 4.8 cm (3.7-5.4 cm) LVPWd: 0.91 cm (0.7-1.1 cm)LVIDs: 4.3 cm (2.3-3.6 cm) LA dimension: 4.2 cm(2.3-4.0 cm)Ao root diam: 3.7 cm(2.0-3.2 cm) Doppler with Normals LV V1 max: 92.1 cm/sec (0.7-1.7m/s)MV E max adam: 33.4 cm/sec(0.8-1.3m/s) MV A max adam: 64.5 cm/sec(0.0-0.0m/s) MV E/A: 0.52 (<1.5) MMode/2D Measurements Calculations TAPSE: 1.3 cm FS: 10.8 % Ao root area: LVOT diam: 2.1 cm RV S Adam: 9.5 cm/sec EDV(Teich): 10.8 cm2 LVOT area: 107.2 ml 3.3 cm2 ESV(Teich): 82.1 ml EF(Teich): 23.5 % __ LVLd ap4: 8.6 cm SV(MOD-sp4): EDV(MOD-sp4): 40.1 ml 132.0 ml LVLs ap4: 8.0 cm ESV(MOD-sp4): 91.9 ml EF(MOD-sp4): 30.4 % Doppler Measurements Calculations MV dec time: MV max PG: E/E' lat: 4.4 MV dec slope: 0.35 sec 21.0 mmHg E/E' med: 6.0 96.7 cm/sec2 __ Ao V2 max: LV V1 max PG: MR max adam: 108.6 cm/sec 3.4 mmHg 229.8 cm/sec Ao max P.7 mmHg MR max P.1 mmHg DORA(V,D): 2.8 cm2 Transcribed By: VIRIDIANA 12/10/20 1150 Dictated By: Giovana Fu DO 12/10/20 0816 Signed By: 12/10/20 1150 Normal [facility] Glucose Poct Glucometerson 0 12-10-2020 Glucose [Mass/Vol] 157 mg/dL Normal [facility] Comment on above: Result Comment: [place] Glucose Reference Range is dependent on time and content of last meal. Glucose of more than 200 mg/dL in a nonstressed, ambulatory subject supports the diagnosis of Diabetes Mellitus. PERFORMED BY: [place] [id number] PATHOLOGIST RESOLUTION REP SHYANN OLIVIER M.D. Performed By: #### B MP, HS TROP, CBC, PT, PTT, BNP #### [address] Commemt1 Glu2: Cleaned Meter Normal [facility] Comment on above: Result Comment: PERF ORMED BY: [place] [address] PATHOLOGIST RESOLUTION REP SHYANN OLIVIER M.D. Performed By: #### B MP, HS TROP, CBC, PT, PTT, BNP #### [address] Glucose [Mass/Vol] 122 mg/dL Normal [facility] Comment on above: Result Comment: [place] om Glucose Reference Range is dependent on time and content of last meal. Glucose of more than 200 mg/dL in a nonstressed, ambulatory subject supports the diagnosis of Diabetes Mellitus. Performed By: #### B MP, HS TROP, CBC, PT, PTT, BNP #### [address] Glucose [Mass/Vol] 179 mg/dL Normal [facility] Comment on above: Result Comment: [place] om Glucose Reference Range is dependent on time and content of last meal. Glucose of more than 200 mg/dL in a nonstressed, ambulatory subject supports the diagnosis of Diabetes Mellitus. PERFORMED BY: [place] [address] PATHOLOGIST RESOLUTION REP SHYANN OLIVIER M.D. Performed By: #### B MP, HS TROP, CBC, PT, PTT, BNP #### [address] Troponin I High Sensitivityo n 12-10-2020 Troponin I High Sensitivity 9777 pg/mL Off scale high 0-20 [facility] Comment on above: Result Comment: PERF ORMED BY: [place] [address] PATHOLOGIST RESOLUTION REP SHYANN OLIVIER M.D. Performed By: #### B MP, HS TROP, CBC, PT, PTT, BNP #### [place] [address] [place] XR chest 1V portableon 12-10 XR chest 1V portable [facility] Main [place] [id number] XRay Report Signed Patient: Vishal Duke MR#: [id number] : 1960 Acct:[id number] Age/Sex: 59 / M ADM Date: 12/08/20 Loc: Room: [address] [place] [address] Type: ADM IN Attending Dr: Leonardo Storey MD Ordering Provider: Daniel Prabhakar DO Date of Service: 12/10/20 XR/XR chest 1V portable: dyspnea, in-hospital CPA with ROSC Copies to: MD Daniel Cheng DO XR chest 1V portable 12/09/2020 9:03 PM SIGNS AND SYMPTOMS: dyspnea, in-hospital CPA with ROSC PROTOCOL: Frontal radiograph of the chest COMPARISON: 12/08/2020 FINDINGS: The trachea is midline. Sternotomy wires overlie the mediastinum. The heart and mediastinal structures are within normal limits. There is redemonstration of a subtle opacity over the right hemidiaphragm which show slight interval improvement. Mild interstitial prominence is noted bilaterally. The bony thorax is intact. XR/XR chest 1V portable IMPRESSION: Slight interval improvement in airspace opacity near the right lung base. Otherwise unchanged chest. Impression dictated by: Ajith Saleh M.D.12/10/2020 8:05 AM Dictation Location: [facility]-- Transcribed By: [facility] 12/10/20804 Dictated By: Ajith Saleh II, MD 12/10/20802 Signed By: 12/10/20804 Normal [facility] Basic Metabolic Panelon 11-16 Calcium [Mass/Vol] 9.6 mg/dL Normal 8.2-10.2 [facility] Comment on above: Performed By: #### B MP, HS TROP, CBC, PT, PTT, BNP #### [facility] [address] [place] [id number] [place] Chloride [Moles/Vol] 101 mmol/L Normal 95-114 [facility] Comment on above: Performed By: #### B MP, HS TROP, CBC, PT, PTT, BNP #### [facility] [address] [place] [id number] [place] CO2 [Moles/Vol] 23.3 mmol/L Normal 22.0-30.0 [facility] Comment on above: Performed By: #### B MP, HS TROP, CBC, PT, PTT, BNP #### [address] Creatinine [Mass/Vol] 0.97 mg/dL Normal 0.64-1.27 [facility] Comment on above: Performed By: #### B MP, HS TROP, CBC, PT, PTT, BNP #### [address] Creatinine Clr Calc Pharmacy 87.33 [facility] Comment on above: Result Comment: PERF ORMED BY: [place] [address] PATHOLOGIST RESOLUTION REP SHYANN OLIVIER M.D. Performed By: #### B MP, HS TROP, CBC, PT, PTT, BNP #### [address] Estimated GFR ( Nata > 60 [facility] Comment on above: Result Comment: GFR estimated reference range: According to KDOQI guidelines, <60 ml/min/1.73m2 is sufficient to diagnose a patient with chronic kidney disease. Performed By: #### B MP, HS TROP, CBC, PT, PTT, BNP #### [address] Estimated GFR (Non- Am > 60 [facility] Comment on above: Performed By: #### B MP, HS TROP, CBC, PT, PTT, BNP #### [address] Glucose [Mass/Vol] 128 mg/dL High 70-100 [facility] Comment on above: Result Comment: [place] om Glucose Reference Range is dependent on time and content of last meal. Glucose of more than 200 mg/dL in a nonstressed, ambulatory subject supports the diagnosis of Diabetes Mellitus. ADA recommended reference range Performed By: #### B MP, HS TROP, CBC, PT, PTT, BNP #### [address] Potassium [Moles/Vol] 4.2 mmol/L Normal 3.5-5.1 [facility] Comment on above: Performed By: #### B MP, HS TROP, CBC, PT, PTT, BNP #### [address] Sodium [Moles/Vol] 139 mmol/L Normal 136-146 [facility] Comment on above: Performed By: #### B MP, HS TROP, CBC, PT, PTT, BNP #### [address] Urea nitrogen [Mass/Vol] 15 mg/dL Normal 9-23 [facility] Comment on above: Performed By: #### B MP, HS TROP, CBC, PT, PTT, BNP #### [address] Complete Blood Count Auto Di ffon 12-09-2020 Basophils (Bld) [#/Vol] 0.1 10*3/uL Normal 0.0-0.2 [facility] Comment on above: Result Comment: PERF ORMED BY: [place] [address] PATHOLOGIST RESOLUTION REP SHYANN OLIVIER M.D. Performed By: #### B MP, HS TROP, CBC, PT, PTT, BNP #### [address] Basophils/100 WBC (Bld) 1.0 % Normal . [facility] Comment on above: Performed By: #### B MP, HS TROP, CBC, PT, PTT, BNP #### [address] Eosinophils (Bld) [#/Vol] 0.2 10*3/uL Normal 0.0-0.45 [facility] Comment on above: Performed By: #### B MP, HS TROP, CBC, PT, PTT, BNP #### [address] Eosinophils/100 WBC (Bld) 2.8 % Normal . [facility] Comment on above: Performed By: #### B MP, HS TROP, CBC, PT, PTT, BNP #### [address] Erythrocyte distribution width (RBC) [Ratio] 15.0 % High 12.0-14.8 [facility] Comment on above: Performed By: #### B MP, HS TROP, CBC, PT, PTT, BNP #### [address] Hematocrit (Bld) [Volume fraction] 41.9 % Normal 38.8-50.0 [facility] Comment on above: Performed By: #### B MP, HS TROP, CBC, PT, PTT, BNP #### [address] Hemoglobin (Bld) [Mass/Vol] 14.2 g/dL Normal 13.0-17.0 [facility] Comment on above: Performed By: #### B MP, HS TROP, CBC, PT, PTT, BNP #### [address] Lymphocytes (Bld) [#/Vol] 1.1 10*3/uL Normal 1.00-4.8 [facility] Comment on above: Performed By: #### B MP, HS TROP, CBC, PT, PTT, BNP #### [address] Lymphocytes/100 WBC (Bld) 13.9 % Normal . [facility] Comment on above: Performed By: #### B MP, HS TROP, CBC, PT, PTT, BNP #### [address] MCH (RBC) [Entitic mass] 31.4 pg Normal 27.5-35.2 [facility] Comment on above: Performed By: #### B MP, HS TROP, CBC, PT, PTT, BNP #### [address] MCV (RBC) [Entitic vol] 92.5 fL Normal 83.5-101 [facility] Comment on above: Performed By: #### B MP, HS TROP, CBC, PT, PTT, BNP #### [address] Mean Corpuscular HGB Conc 33.9 g/dL Normal 32.5-35.6 [facility] Comment on above: Performed By: #### B MP, HS TROP, CBC, PT, PTT, BNP #### [address] Monocytes (Bld) [#/Vol] 0.6 10*3/uL Normal 0.0-0.8 [facility] Comment on above: Performed By: #### B MP, HS TROP, CBC, PT, PTT, BNP #### [address] Monocytes/100 WBC (Bld) 8.3 % Normal . [facility] Comment on above: Performed By: #### B MP, HS TROP, CBC, PT, PTT, BNP #### [address] Neutrophils (Bld) [#/Vol] 5.8 10*3/uL Normal 1.8-7.7 [facility] Comment on above: Performed By: #### B MP, HS TROP, CBC, PT, PTT, BNP #### [address] Neutrophils/100 WBC (Bld) 74.0 % Normal . [facility] Comment on above: Performed By: #### B MP, HS TROP, CBC, PT, PTT, BNP #### [address] Nucleated RBC/100 WBC (Bld) [Ratio] 0.0 % Normal 0-0.5 [facility] Comment on above: Performed By: #### B MP, HS TROP, CBC, PT, PTT, BNP #### [address] Platelet mean volume (Bld) [Entitic vol] 8.0 fL Normal 6.6-10.1 [facility] Comment on above: Performed By: #### B MP, HS TROP, CBC, PT, PTT, BNP #### [address] [place] [address] [place] Platelets (Bld) [#/Vol] 409 10*3/uL Normal 150-450 [facility] Comment on above: Performed By: #### B MP, HS TROP, CBC, PT, PTT, BNP #### [facility] [address] RBC (Bld) [#/Vol] 4.53 10*6/uL Normal 3.90-5.60 [facility] Comment on above: Performed By: #### B MP, HS TROP, CBC, PT, PTT, BNP #### [address] WBC (Bld) [#/Vol] 7.8 10*3/uL Normal 4.5-11.0 [facility] Comment on above: Performed By: #### B MP, HS TROP, CBC, PT, PTT, BNP #### [address] Creatine Kinaseon 12-09-2020 CK [Catalytic activity/Vol] 128 U/L Normal 22-269 [facility] Comment on above: Order Comment: get a ll labs @0315 per rn Performed By: #### B MP, HS TROP, CBC, PT, PTT, BNP #### [address] Creatinine Kinase MBon 12-09 CK.MB [Mass/Vol] 15.6 ng/mL High 0.6-6.3 [facility] Comment on above: Order Comment: get a ll labs @0315 per rn Performed By: #### B MP, HS TROP, CBC, PT, PTT, BNP #### [address] CKMB Relative Index 12.1 % High 0.00-2.50 [facility] Comment on above: Order Comment: get a ll labs @0315 per rn Performed By: #### B MP, HS TROP, CBC, PT, PTT, BNP #### [address] ECG 12 lead ECGon 12-09-2020 ECG 12 lead ECG [facility] Main [place] [address] [place] [address] Electrocardiograph Report Signed Patient: Vishal Duke MR#: [id number] : 1960 Acct:[id number] Age/Sex: 59 / M ADM Date: 12/08/20 Loc: Room: [address] [place] [address] Type: ADM IN Attending Dr: Leonardo Storey MD Ordering Provider: Daniel Prabhakar DO Date of Service: 12/09/20 ECG/ECG 12 lead ECG: chest pain Copies to: Test Reason : Blood Pressure : / mmHG Vent. Rate : 086 BPM Atrial Rate : 086 BPM P-R Int : 142 ms QRS Dur : 078 ms QT Int : 370 ms P-R-T Axes : 049 000 008 degrees QTc Int : 442 ms Normal sinus rhythm Nonspecific ST and T wave abnormality Abnormal ECG When compared with ECG of 08-DEC-2020 09:50, T wave inversion now evident in Inferior leads Nonspecific T wave abnormality, worse in Anterior leads T wave inversion no longer evident in Lateral leads Confirmed by GIOVANA FU DO, FACC ([id number]) on 12/09/2020 1:15:02 PM Referred By: Electronically Signed By:GIOVANA FU DO, FACC Transcribed By: ELIZABETH Dictated By: Giovana Fu DO 12/09/20 0816 Signed By: 12/09/20 1315 Normal [facility] Magnesiumon 12-09-2020 Magnesium [Mass/Vol] 2.0 mg/dL Normal 1.6-2.6 [facility] Comment on above: Order Comment: Comme nt Add on to am Result Comment: PERF ORMED BY: [address] [place] [address] PATHOLOGIST RESOLUTION REP SHYANN OLIVIER M.D. Performed By: #### B MP, HS TROP, CBC, PT, PTT, BNP #### [address] [address] [facility] Partial Thromboplastin Timeo n 12-09-2020 aPTT Coag (Bld) [Time] 37.7 s High 25.1-36.5 [facility] Comment on above: Result Comment: PERF ORMED BY: [place] [address] PATHOLOGIST RESOLUTION REP SHYANN OLIVIER M.D. Performed By: #### B MP, HS TROP, CBC, PT, PTT, BNP #### [facility] [address] [place] [address] [place] Prothrombin Time INRon 12-09 INR Coag (PPP) [Relative time] 1.2 {INR} Normal [facility] Comment on above: Result Comment: INR Therapeutic Range A) Pre- and Peroperative OAT started two weeks before surgery. NOT HIP SURGERY: 1.5 - 2.5 HIP SURGERY: 2 - 3 B) Primary and secondary prevention of venous THROMBOSIS: 2 - 3 C) Active venous thrombosis, pulmonary embolism and prevention of recurrent venous thrombosis: 2 - 3 D) Prevention of arterial thromboembolism including patients with mechanical heart valves: 3 - 4.5 Performed By: #### B MP, HS TROP, CBC, PT, PTT, BNP #### [facility] [address] [place] [address] [place] PT Coag (PPP) [Time] 13.8 s High 9.0-12.9 [facility] Comment on above: Performed By: #### B MP, HS TROP, CBC, PT, PTT, BNP #### [place] [id number] [facility] Troponin I High Sensitivityo n 12-09-2020 Troponin I High Sensitivity 1641 pg/mL Off scale high 0-20 [facility] Comment on above: Order Comment: * RN to call lab when pt returns hko Result Comment: PERF ORMED BY: [place] [address] PATHOLOGIST RESOLUTION REP SHYANN OLIVIER M.D. Performed By: #### B MP, HS TROP, CBC, PT, PTT, BNP #### [place] [id number] [facility] Troponin I High Sensitivity 2472 pg/mL Off scale high 0-20 [facility] Comment on above: Order Comment: Comme nt during code blue Result Comment: PERF ORMED BY: [place] [address] PATHOLOGIST RESOLUTION REP SHYANN OLIVIER M.D. Performed By: #### B MP, HS TROP, CBC, PT, PTT, BNP #### [address] Troponin I High Sensitivity 1363 pg/mL Off scale high 0-20 [facility] Comment on above: Order Comment: get a ll labs @0315 per rn Result Comment: PERF ORMED BY: [place] [address] PATHOLOGIST RESOLUTION REP SHYANN OLIVIER M.D. Performed By: #### B MP, HS TROP, CBC, PT, PTT, BNP #### [address] B-Type Natriuretic Peptideon 12-08-2020 Natriuretic peptide B (Bld) [Mass/Vol] 199.0 pg/mL High 5-100 [facility] Comment on above: Result Comment: PERF ORMED BY: [place] [address] PATHOLOGIST RESOLUTION REP SHYANN OLIVIER M.D. Performed By: #### B MP, HS TROP, CBC, PT, PTT, BNP #### [address] Basic Metabolic Panelon 11-16 Calcium [Mass/Vol] 10.1 mg/dL Normal 8.2-10.2 [facility] Comment on above: Performed By: #### B MP, HS TROP, CBC, PT, PTT, BNP #### [place] [address] [place] Chloride [Moles/Vol] 101 mmol/L Normal 95-114 [facility] Comment on above: Performed By: #### B MP, HS TROP, CBC, PT, PTT, BNP #### [place] [address] [place] CO2 [Moles/Vol] 23.2 mmol/L Normal 22.0-30.0 [facility] Comment on above: Performed By: #### B MP, HS TROP, CBC, PT, PTT, BNP #### [address] Creatinine [Mass/Vol] 1.15 mg/dL Normal 0.64-1.27 [facility] Comment on above: Performed By: #### B MP, HS TROP, CBC, PT, PTT, BNP #### [address] Creatinine Clr Calc Pharmacy 81.22 [facility] Comment on above: Result Comment: PERF ORMED BY: [place] [address] PATHOLOGIST RESOLUTION REP SHYANN OLIVIER M.D. Performed By: #### B MP, HS TROP, CBC, PT, PTT, BNP #### [address] Estimated GFR ( Nata > 60 [facility] Comment on above: Result Comment: GFR estimated reference range: According to KDOQI guidelines, <60 ml/min/1.73m2 is sufficient to diagnose a patient with chronic kidney disease. Performed By: #### B MP, HS TROP, CBC, PT, PTT, BNP #### [address] Estimated GFR (Non- Am > 60 [facility] Comment on above: Performed By: #### B MP, HS TROP, CBC, PT, PTT, BNP #### [address] Glucose [Mass/Vol] 153 mg/dL High 70-100 [facility] Comment on above: Result Comment: [place] om Glucose Reference Range is dependent on time and content of last meal. Glucose of more than 200 mg/dL in a nonstressed, ambulatory subject supports the diagnosis of Diabetes Mellitus. ADA recommended reference range Performed By: #### B MP, HS TROP, CBC, PT, PTT, BNP #### [address] Potassium [Moles/Vol] 4.5 mmol/L Normal 3.5-5.1 [facility] Comment on above: Performed By: #### B MP, HS TROP, CBC, PT, PTT, BNP #### [facility] [address] Sodium [Moles/Vol] 139 mmol/L Normal 136-146 [facility] Comment on above: Performed By: #### B MP, HS TROP, CBC, PT, PTT, BNP #### [facility] [facility] [address] Urea nitrogen [Mass/Vol] 15 mg/dL Normal 9-23 [facility] Comment on above: Performed By: #### B MP, HS TROP, CBC, PT, PTT, BNP #### [facility] [address] COVID-19 Antigenon 1 COVID-19 Antigen Healthcare Worker?: N Tessa Reference Tessa Reference Negative SARS-CoV+SARS-CoV-2 (COVID-19) Ag [Presence] in Respiratory specimen by Rapid immunoassay Negative for SARS Antigen by GISSEL COVID19 Blank Space ------ Tessa Disclaimer Negative results, from patients with symptom Tessa Disclaimer onset beyond five days, should be treated as Tessa Disclaimer presumptive and confirmation with a molecular Tessa Disclaimer assay, if necessary, for patient management, Tessa Disclaimer may be performed. Negative results do not rule Tessa Disclaimer out COVID-19 and should not be used as the sole Tessa Disclaimer basis for treatment or patient management Tessa Disclaimer decisions, including infection control decisions. Tessa Disclaimer Negative results should be considered in the Tessa Disclaimer context of a patient's recent exposures, history Tessa Disclaimer and the presence of clinical signs and symptoms Tessa Disclaimer consistent with COVID-19. COVID19 Blank Space ------ Tessa Disclaimer The Tessa SARS Antigen GISSEL does not differentiate Tessa Disclaimer between SARS-CoV and SARS-CoV-2. COVID19 Blank Space ------ Tessa Disclaimer This test was developed and its performance Tessa Disclaimer characteristic determined by [employer] and Tessa Disclaimer validated at [facility]. This Tessa Disclaimer test has not been FDA cleared or approved. This Tessa Disclaimer test has been authorized by FDA under an Emergency Use Tessa Disclaimer Authorization (EUA). This test has been validated Tessa Disclaimer in accordance with the FDA's Guidance Document (Policy Tessa Disclaimer for Diagnostics Testing in Laboratories Certified to Tessa Disclaimer Perform High Complexity Testing under CLIA prior to Tessa Disclaimer Emergency Use Authorization for Coronavirus Tessa Disclaimer is during the Public Health Emergency) Tessa Disclaimer issued on July 18, 2019. This test is only authorized Tessa Disclaimer for the duration of time the declaration that Tessa Disclaimer circumstances exist justifying the authorization of Tessa Disclaimer the emergency use of in vitro diagnostic tests for Tessa Disclaimer detection of SARS-CoV-2 virus and/or diagnosis of Tessa Disclaimer COVID-19 infection under section 564(b)(1) of the Tessa Disclaimer Act, 21 U.S.C. 360bbb-3(b)(1), unless the Tessa Disclaimer authorization is terminated or revoked sooner. PERFORMED BY: [facility] [place] [address] PATHOLOGIST RESOLUTION REP SHYANN OLIVIER M.D. [facility] Comment on above: Performed By: #### S TAYLER KESSLERID-19 [place], COVID 19 [facility] [place] [facility] #### [facility] [address] [place] [address] [facility] [place] SARS-CoV-2 (COVID-19) RNA ADELINE+probe Ql (Unsp spec) Negative Normal Negative [facility] Comment on above: Order Comment: Healt hcare Worker?: N Result Comment: Testing for SARS-CoV-2 by RT-PCR This test was developed and its performance characteristics determined by [employer] [facility] and validated at the [facility]. This test has not been FDA cleared or approved. This test has been authorized by FDA under an Emergency Use Authorization (EUA). This test has been validated in accordance with the FDA's Guidance Document (Policy for Diagnostics Testing in Laboratories Certified to Perform High Complexity Testing under CLIA prior to Emergency Use Authorization for Coronavirus Disease-2019 during the Public Health Emergency) issued on July 18, 2019. This test is only authorized for the duration of time the declaration that circumstances exist justifying the authorization of the emergency use of in vitro diagnostic tests for detection of SARS-CoV-2 virus and/or diagnosis of COVID-19 infection under section 564(b)(1) of the Act, 21 U.S.C. 360bbb-3(b)(1), unless the authorization is terminated or revoked sooner. PERFORMED BY: [place] [address] PATHOLOGIST RESOLUTION REP SHYANN OLIVIER M.D. Performed By: #### B MP, HS TROP, CBC, PT, PTT, BNP #### [facility] [address] [place], [place] [id number] [facility] CT abdomen pelvis wo conon 0 12-08-2020 CT abdomen pelvis wo con [facility] [place] [address] [place] [address] CT Scan Report Signed Patient: Vishal Duke MR#: [id number] : 1960 Acct:[id number] Age/Sex: 59 / M ADM Date: 12/08/20 Loc: ER Room: Type: [facility] ER Attending Dr: Ordering Provider: Irwin Lutz DO Date of Service: 08/24/21 CT/CT abdomen pelvis wo con: f Copies to: Irwin Lutz DO CLINICAL HISTORY: Midsternal chest pain, 2 left renal cysts ruptured last week. Status post prior renal transplant. CT ABDOMEN AND PELVIS WITHOUT CONTRAST: COMPARISON: None FINDINGS: CT scans of the abdomen and pelvis were obtained without contrast. The visualized lung bases show subsegmental atelectasis at the right middle and the lower lobes, platelike atelectasis at the left lung base. Mild patchy groundglass opacities are shown at the posterior aspects of bilateral lower lobes and the lingular segment, nonspecific finding. The visualized liver is of normal size without intrahepatic biliary dilatation. There are numerous hepatic cysts throughout both lobes measuring up to 6 cm in diameter. The gallbladder is free of wall thickening or pericholecystic inflammation. The pancreas is of unremarkable size without peripancreatic inflammation. The visualized spleen and adrenal glands are of unremarkable size. Both kidneys are significantly enlarged secondary to numerous hypodense cysts and multiple hyperdense cysts from polycystic kidney disease. There is a hemorrhage within the largest cyst at the left kidney measuring 8.8 cm in diameter. Another cyst with intracystic hemorrhage is demonstrated within the inferior lateral aspect of left kidney measuring approximately 4.8 cm. No perinephric fluid collection or retroperitoneal hematoma is noted. Both ureters are of unremarkable caliber and course without radiopaque stone. The urinary bladder is unremarkable. A transplanted kidney at the right iliac fossa is noted without hydronephrosis or radiopaque stones. The ureter from the transplant kidney shows no dilatation. There is no free air in the abdomen or bowel obstruction. There is no evidence of appendicitis. The stomach is unremarkable. There is no significant dilatation of small bowel loops or mesenteric edema. No pericolonic inflammation is noted. There is no ascites. The abdominal aorta shows moderate atheromatous plaques without significant focal aneurysm. There is no para-aortic lymphadenopathy. No prominent pelvic lymph node enlargement is demonstrated. There is osteopenia of the visualized spine without acute compression deformity. CT/CT abdomen pelvis wo con IMPRESSION: MILD ATELECTASIS AT THE LUNG BASES. NO FREE AIR IN THE ABDOMEN OR BOWEL OBSTRUCTION. NUMEROUS HEPATIC CYSTS. BILATERAL POLYCYSTIC KIDNEY DISEASE, 2 HEMORRHAGIC CYSTS ARE NOTED ON THE LEFT. RENAL TRANSPLANT AT THE RIGHT ILIAC FOSSA WITHOUT HYDRONEPHROSIS. The CT exam was performed using one or more of the following dose reduction techniques: Automated exposure control, adjustment of the MA and/or Kv according to patient size, or use of the iterative reconstruction technique. Impression dictated by: Biju Ag M.D.12/08/2020 11:16 AM Dictation Location: [place] [address] Transcribed By: [facility] 12/08/20 1116 Dictated By: Biju Ag MD 12/08/20 1102 Signed By: 12/08/20 1116 Normal [facility] Complete Blood Count Auto Di ffon 12-08-2020 Basophils (Bld) [#/Vol] 0.1 10*3/uL Normal 0.0-0.2 [facility] Comment on above: Result Comment: PERF ORMED BY: [place] [address] PATHOLOGIST RESOLUTION REP SHYANN OLIVIER M.D. Performed By: #### B MP, HS TROP, CBC, PT, PTT, BNP #### [address] Basophils/100 WBC (Bld) 0.6 % Normal . [facility] Comment on above: Performed By: #### B MP, HS TROP, CBC, PT, PTT, BNP #### [address] Eosinophils (Bld) [#/Vol] 0.2 10*3/uL Normal 0.0-0.45 [facility] Comment on above: Performed By: #### B MP, HS TROP, CBC, PT, PTT, BNP #### [address] Eosinophils/100 WBC (Bld) 2.5 % Normal . [facility] Comment on above: Performed By: #### B MP, HS TROP, CBC, PT, PTT, BNP #### [address] Erythrocyte distribution width (RBC) [Ratio] 15.2 % High 12.0-14.8 [facility] Comment on above: Performed By: #### B MP, HS TROP, CBC, PT, PTT, BNP #### [address] Hematocrit (Bld) [Volume fraction] 41.7 % Normal 38.8-50.0 [facility] Comment on above: Performed By: #### B MP, HS TROP, CBC, PT, PTT, BNP #### [address] Hemoglobin (Bld) [Mass/Vol] 14.0 g/dL Normal 13.0-17.0 [facility] Comment on above: Performed By: #### B MP, HS TROP, CBC, PT, PTT, BNP #### [address] Lymphocytes (Bld) [#/Vol] 0.9 10*3/uL Low 1.00-4.8 [facility] Comment on above: Performed By: #### B MP, HS TROP, CBC, PT, PTT, BNP #### [address] Lymphocytes/100 WBC (Bld) 10.9 % Normal . [facility] Comment on above: Performed By: #### B MP, HS TROP, CBC, PT, PTT, BNP #### [address] MCH (RBC) [Entitic mass] 31.5 pg Normal 27.5-35.2 [facility] Comment on above: Performed By: #### B MP, HS TROP, CBC, PT, PTT, BNP #### [address] MCV (RBC) [Entitic vol] 93.7 fL Normal 83.5-101 [facility] Comment on above: Performed By: #### B MP, HS TROP, CBC, PT, PTT, BNP #### [address] Mean Corpuscular HGB Conc 33.6 g/dL Normal 32.5-35.6 [facility] Comment on above: Performed By: #### B MP, HS TROP, CBC, PT, PTT, BNP #### [address] [address] [place] Monocytes (Bld) [#/Vol] 0.6 10*3/uL Normal 0.0-0.8 [facility] Comment on above: Performed By: #### B MP, HS TROP, CBC, PT, PTT, BNP #### [facility] [address] Monocytes/100 WBC (Bld) 7.4 % Normal . [facility] Comment on above: Performed By: #### B MP, HS TROP, CBC, PT, PTT, BNP #### [address] Neutrophils (Bld) [#/Vol] 6.7 10*3/uL Normal 1.8-7.7 [facility] Comment on above: Performed By: #### B MP, HS TROP, CBC, PT, PTT, BNP #### [address] Neutrophils/100 WBC (Bld) 78.6 % Normal . [facility] Comment on above: Performed By: #### B MP, HS TROP, CBC, PT, PTT, BNP #### [place] [address] [place] Nucleated RBC/100 WBC (Bld) [Ratio] 0.1 % Normal 0-0.5 [facility] Comment on above: Performed By: #### B MP, HS TROP, CBC, PT, PTT, BNP #### [place] [address] [place] Platelet mean volume (Bld) [Entitic vol] 8.2 fL Normal 6.6-10.1 [facility] Comment on above: Performed By: #### B MP, HS TROP, CBC, PT, PTT, BNP #### [place] [address] [place] Platelets (Bld) [#/Vol] 414 10*3/uL Normal 150-450 [facility] Comment on above: Performed By: #### B MP, HS TROP, CBC, PT, PTT, BNP #### [address] RBC (Bld) [#/Vol] 4.44 10*6/uL Normal 3.90-5.60 [facility] Comment on above: Performed By: #### B MP, HS TROP, CBC, PT, PTT, BNP #### [facility] [address] WBC (Bld) [#/Vol] 8.5 10*3/uL Normal 4.5-11.0 [facility] Comment on above: Performed By: #### B MP, HS TROP, CBC, PT, PTT, BNP #### [facility] [address] Basophils (Bld) [#/Vol] 0.1 10*3/uL Normal 0.0-0.2 [facility] Comment on above: Result Comment: PERF ORMED BY: [place] [address] PATHOLOGIST RESOLUTION REP SHYANN OLIVIER M.D. Performed By: #### B MP, HS TROP, CBC, PT, PTT, BNP #### [facility] [address] Basophils/100 WBC (Bld) 0.7 % Normal . [facility] Comment on above: Performed By: #### B MP, HS TROP, CBC, PT, PTT, BNP #### [facility] [address] Eosinophils (Bld) [#/Vol] 0.2 10*3/uL Normal 0.0-0.45 [facility] Comment on above: Performed By: #### B MP, HS TROP, CBC, PT, PTT, BNP #### [facility] [address] Eosinophils/100 WBC (Bld) 1.8 % Normal . [facility] Comment on above: Performed By: #### B MP, HS TROP, CBC, PT, PTT, BNP #### [facility] [address] Erythrocyte distribution width (RBC) [Ratio] 15.5 % High 12.0-14.8 [facility] Comment on above: Performed By: #### B MP, HS TROP, CBC, PT, PTT, BNP #### [address] Hematocrit (Bld) [Volume fraction] 42.0 % Normal 38.8-50.0 [facility] Comment on above: Performed By: #### B MP, HS TROP, CBC, PT, PTT, BNP #### [address] Hemoglobin (Bld) [Mass/Vol] 14.2 g/dL Normal 13.0-17.0 [facility] Comment on above: Performed By: #### B MP, HS TROP, CBC, PT, PTT, BNP #### [address] Lymphocytes (Bld) [#/Vol] 0.8 10*3/uL Low 1.00-4.8 [facility] Comment on above: Performed By: #### B MP, HS TROP, CBC, PT, PTT, BNP #### [address] Lymphocytes/100 WBC (Bld) 7.7 % Normal . [facility] Comment on above: Performed By: #### B MP, HS TROP, CBC, PT, PTT, BNP #### [address] MCH (RBC) [Entitic mass] 31.3 pg Normal 27.5-35.2 [facility] Comment on above: Performed By: #### B MP, HS TROP, CBC, PT, PTT, BNP #### [address] MCV (RBC) [Entitic vol] 92.4 fL Normal 83.5-101 [facility] Comment on above: Performed By: #### B MP, HS TROP, CBC, PT, PTT, BNP #### [address] Mean Corpuscular HGB Conc 33.9 g/dL Normal 32.5-35.6 [facility] Comment on above: Performed By: #### B MP, HS TROP, CBC, PT, PTT, BNP #### [facility] [address] [place] [address] Monocytes (Bld) [#/Vol] 0.8 10*3/uL Normal 0.0-0.8 [facility] Comment on above: Performed By: #### B MP, HS TROP, CBC, PT, PTT, BNP #### [address] Monocytes/100 WBC (Bld) 7.5 % Normal . [facility] Comment on above: Performed By: #### B MP, HS TROP, CBC, PT, PTT, BNP #### [address] Neutrophils (Bld) [#/Vol] 9.0 10*3/uL High 1.8-7.7 [facility] Comment on above: Performed By: #### B MP, HS TROP, CBC, PT, PTT, BNP #### [address] Neutrophils/100 WBC (Bld) 82.3 % Normal . [facility] Comment on above: Performed By: #### B MP, HS TROP, CBC, PT, PTT, BNP #### [place] [address] [place] Nucleated RBC/100 WBC (Bld) [Ratio] 0.1 % Normal 0-0.5 [facility] Comment on above: Performed By: #### B MP, HS TROP, CBC, PT, PTT, BNP #### [place] [address] [place] Platelet mean volume (Bld) [Entitic vol] 7.9 fL Normal 6.6-10.1 [facility] Comment on above: Performed By: #### B MP, HS TROP, CBC, PT, PTT, BNP #### [place] [address] [place] Platelets (Bld) [#/Vol] 463 10*3/uL High 150-450 [facility] Comment on above: Performed By: #### B MP, HS TROP, CBC, PT, PTT, BNP #### [address] RBC (Bld) [#/Vol] 4.54 10*6/uL Normal 3.90-5.60 [facility] Comment on above: Performed By: #### B MP, HS TROP, CBC, PT, PTT, BNP #### [address] WBC (Bld) [#/Vol] 11.0 10*3/uL Normal 4.5-11.0 [facility] Comment on above: Performed By: #### B MP, HS TROP, CBC, PT, PTT, BNP #### [address] Creatine Kinaseon 12-08-2020 CK [Catalytic activity/Vol] 78 U/L Normal 22-269 [facility] Comment on above: Performed By: #### B MP, HS TROP, CBC, PT, PTT, BNP #### [address] CK [Catalytic activity/Vol] 67 U/L Normal 22-269 [facility] Comment on above: Performed By: #### B MP, HS TROP, CBC, PT, PTT, BNP #### [address] CK [Catalytic activity/Vol] 58 U/L Normal 22-269 [facility] Comment on above: Performed By: #### B MP, HS TROP, CBC, PT, PTT, BNP #### [address] Creatinine Kinase MBon 12-08 CK.MB [Mass/Vol] 6.3 ng/mL Normal 0.6-6.3 [facility] Comment on above: Performed By: #### B MP, HS TROP, CBC, PT, PTT, BNP #### [address] CKMB Relative Index 8.0 % High 0.00-2.50 [facility] Comment on above: Performed By: #### B MP, HS TROP, CBC, PT, PTT, BNP #### [facility] [address] CK.MB [Mass/Vol] 4.2 ng/mL Normal 0.6-6.3 [facility] Comment on above: Performed By: #### B MP, HS TROP, CBC, PT, PTT, BNP #### [facility] [address] CKMB Relative Index 6.2 % High 0.00-2.50 [facility] Comment on above: Performed By: #### B MP, HS TROP, CBC, PT, PTT, BNP #### [address] CK.MB [Mass/Vol] 3.7 ng/mL Normal 0.6-6.3 [facility] Comment on above: Performed By: #### B MP, HS TROP, CBC, PT, PTT, BNP #### [facility] [address] CKMB Relative Index 6.3 % High 0.00-2.50 [facility] Comment on above: Performed By: #### B MP, HS TROP, CBC, PT, PTT, BNP #### [address] ECG 12 lead ECGon 12-08-2020 ECG 12 lead ECG [place] [address] Electrocardiograph Report Signed Patient: Vishal Duke MR#: [id number] : 1960 Acct:[id number] Age/Sex: 59 / M ADM Date: 12/08/20 Loc: Room: [address] [place] [address] Type: ADM INOo Attending Dr: Daniel Prabhakar DO Ordering Provider: Irwin Lutz DO Date of Service: 12/08/20 ECG/ECG 12 lead ECG: Chest Pain Copies to: Test Reason : Blood Pressure : 164/089 mmHG Vent. Rate : 077 BPM Atrial Rate : 077 BPM P-R Int : 138 ms QRS Dur : 078 ms QT Int : 366 ms P-R-T Axes : 050 029 092 degrees QTc Int : 414 ms Normal sinus rhythm Abnormal ECG When compared with ECG of 20-OCT-2016 08:03, Borderline criteria for Inferior infarct are no longer present ST no longer depressed in Inferior leads T wave inversion no longer evident in Inferior leads T wave inversion less evident in Lateral leads Confirmed by IRWIN LUTZ DO ([id number]) on 12/09/2020 6:02:40 AM Referred By: Electronically Signed By:IRWIN LUTZ DO Transcribed By: MUS Dictated By: Irwin Lutz DO 12/08/20 0950 Signed By: 12/09/20 0602 Normal [facility] Partial Thromboplastin Timeo n 12-08-2020 aPTT Coag (Bld) [Time] 131.9 s Off scale high 25.1-36.5 [facility] Comment on above: Result Comment: Resu lts called at 1947 on 12/08/20 PERFORMED BY: [place] [address] PATHOLOGIST RESOLUTION REP SHYANN OLIVIER M.D. Performed By: #### B MP, HS TROP, CBC, PT, PTT, BNP #### [facility] [address] [place], [place] [address] [facility] aPTT Coag (Bld) [Time] 36.2 s Normal 25.1-36.5 [facility] Comment on above: Result Comment: PERF ORMED BY: [place] [address] PATHOLOGIST RESOLUTION REP SHYANN OLIVIER M.D. Performed By: #### B MP, HS TROP, CBC, PT, PTT, BNP #### [facility] [address] [place], [place] [phone] [place] Prothrombin Time INRon 12-08 INR Coag (PPP) [Relative time] 1.5 {INR} Normal [facility] Comment on above: Result Comment: INR Therapeutic Range A) Pre- and Peroperative OAT started two weeks before surgery. NOT HIP SURGERY: 1.5 - 2.5 HIP SURGERY: 2 - 3 B) Primary and secondary prevention of venous THROMBOSIS: 2 - 3 C) Active venous thrombosis, pulmonary embolism and prevention of recurrent venous thrombosis: 2 - 3 D) Prevention of arterial thromboembolism including patients with mechanical heart valves: 3 - 4.5 Performed By: #### B MP, HS TROP, CBC, PT, PTT, BNP #### [facility] [address] PT Coag (PPP) [Time] 16.1 s High 9.0-12.9 [facility] Comment on above: Performed By: #### B MP, HS TROP, CBC, PT, PTT, BNP #### [facility] [address] INR Coag (PPP) [Relative time] 1.3 {INR} Normal [facility] Comment on above: Result Comment: INR Therapeutic Range A) Pre- and Peroperative OAT started two weeks before surgery. NOT HIP SURGERY: 1.5 - 2.5 HIP SURGERY: 2 - 3 B) Primary and secondary prevention of venous THROMBOSIS: 2 - 3 C) Active venous thrombosis, pulmonary embolism and prevention of recurrent venous thrombosis: 2 - 3 D) Prevention of arterial thromboembolism including patients with mechanical heart valves: 3 - 4.5 Performed By: #### B MP, HS TROP, CBC, PT, PTT, BNP #### [address] PT Coag (PPP) [Time] 14.0 s High 9.0-12.9 [facility] Comment on above: Performed By: #### B MP, HS TROP, CBC, PT, PTT, BNP #### [address] Tessa Ag Negativeon 12-09-19 21 Tessa Ag Negative Negative Normal Negative [facility] Comment on above: Result Comment: This is a duplicate Tessa SARS Antigen (GISSEL) result to be used for statistical tracking purpose only. PERFORMED BY: [place] [address] PATHOLOGIST RESOLUTION REP SHYANN OLIVIER M.D. Performed By: #### S OFIANEG, COVID-19 [place], COVID 19 [facility] [place] [facility] #### [facility] [address] [place] [address] [place] Troponin I High Sensitivityo n 12-08-2020 Troponin I High Sensitivity 474 pg/mL Off scale high 0-20 [facility] Comment on above: Result Comment: PERF ORMED BY: [place] [address] PATHOLOGIST RESOLUTION REP SHYANN OLIVIER M.D. Performed By: #### B MP, HS TROP, CBC, PT, PTT, BNP #### [place] [id number] [place] Troponin I High Sensitivity 317 pg/mL Off scale high 0-20 [facility] Comment on above: Result Comment: PERF ORMED BY: [place] [address] PATHOLOGIST RESOLUTION REP SHYANN OLIVIER M.D. Performed By: #### B MP, HS TROP, CBC, PT, PTT, BNP #### [place] [address] [place] Troponin I High Sensitivity 183 pg/mL Off scale high 0-20 [facility] Comment on above: Result Comment: Crit ical value result called at 1719 on 12/08/20 PERFORMED BY: [place] [address] PATHOLOGIST RESOLUTION REP SHYANN OLIVIER M.D. Performed By: #### B MP, HS TROP, CBC, PT, PTT, BNP #### [place] [id number] [place] Troponin I High Sensitivity 49 pg/mL High 0-20 [facility] Comment on above: Result Comment: PERF ORMED BY: [place] [address] PATHOLOGIST RESOLUTION REP SHYANN OLIVIER M.D. Performed By: #### B MP, HS TROP, CBC, PT, PTT, BNP #### [place] [id number] [place] XR chest 1V portableon 12-08 XR chest 1V portable [facility] [place] [address] [place] [address] XRay Report Signed Patient: Vishal Duke MR#: [id number] : 1960 Acct:[id number] Age/Sex: 59 / M ADM Date: 12/08/20 Loc: ER Room: Type: [facility] ER Attending Dr: Ordering Provider: Irwin Lutz DO Date of Service: 12/08/20 XR/XR chest 1V portable: Chest Pain Copies to: Irwin Lutz DO PORTABLE CHEST(1033 hours): CLINICAL HISTORY: Midsternal chest pain for 3 to 4 days that radiates to the jaw and down to both arms. A reformed chronic smoker. COMPARISON: 10/18/2016 FINDINGS: A single AP portable view of the chest was obtained in sitting position. The transverse diameter of the cardiopericardial silhouette is unremarkable. There is no pneumothorax or pulmonary congestion. Mildly increased parenchymal opacity at the right lung base is noted from mild atelectasis or infiltrate. Minimal atelectasis at the left parahilar region is noted. The remaining lung woody show mild chronic interstitial thickening. There is mild elevation of the right hemidiaphragm, probably of long-standing nature. Multiple sternal wire sutures are noted from prior cardiac surgery. Electrocardiographic leads are shown. XR/XR chest 1V portable IMPRESSION: NO PNEUMOTHORAX OR PULMONARY CONGESTION. MILD ATELECTASIS OR INFILTRATE AT THE RIGHT LUNG BASE. Impression dictated by: Biju Ag M.D.12/08/2020 11:02 AM Dictation Location: [place] [address] Transcribed By: [facility] 12/08/20 1102 Dictated By: Biju Ag MD 12/08/20 1059 Signed By: 12/08/20 1102 [facility] TACROLIMUSon 12-04-2020 Tacrolimus (Bld) [Mass/Vol] 8.0 ng/mL Normal 5.0-20.0 [facility] Comment on above: Order Comment: Yes: Add to Previous draw if able Result Comment: The [employer] Tacrolimus assay is a delayed one-step immunoassay for the quantitative determination of tacrolimus in human whole blood using the chemiluminescent microparticle immunoassay (CMIA) technology with flexible assay protocols, referred to as Chemiflex. Performed By: #### 2 5508, 85674, 75069, 74451, 27120 #### [facility] [address] [facility] [address], [facility] TROPONIN-Ion 12-04-2020 Troponin I.cardiac [Mass/Vol] 0.03 ng/mL Normal 0.00-0.04 [facility] Comment on above: Order Comment: No: D o not add to previous draw Pt in bath room askme to come back Result Comment: REFE RENCE RANGES: 0.00 - 0.04 ng/ml NORMAL 0.05 - 0.50 ng/ml INDETERMINATE > 0.50 ng/ml CONSISTENT WITH AN M.I. Performed By: #### 3 5200 #### [facility] [address] [facility]. [address] Order Comment: No: D o not add to previous draw Performed By: #### 2 5508, 24016, 96235, 10769, 74436 #### [facility] [address] [place] [address], [facility] Troponin I.cardiac [Mass/Vol] 0.03 ng/mL Normal 0.00-0.04 [facility] Comment on above: Result Comment: REFE RENCE RANGES: 0.00 - 0.04 ng/ml NORMAL 0.05 - 0.50 ng/ml INDETERMINATE > 0.50 ng/ml CONSISTENT WITH AN M.I. Performed By: #### 2 5508, 67259, 56757, 60494, 21873 #### [facility] [address] [facility] [place] [address], [facility] ktx basic metabolic panelon 12-04-2020 Calcium [Mass/Vol] 8.9 mg/dL Normal 8.6-10.3 [facility] Comment on above: Performed By: #### 2 5508, 97638, 34489, 87810, 17022 #### [facility] [address] [place] [address], [place] Chloride [Moles/Vol] 106 mmol/L Normal 98-107 [facility] Comment on above: Performed By: #### 2 5508, 55446, 05671, 96057, 14101 #### [facility] [address] [place] [address], [place] CO2 [Moles/Vol] 19 mmol/L Low 21-31 [facility] Comment on above: Performed By: #### 2 5508, 77679, 25601, 01408, 21790 #### [facility] [address] [place] [address], [facility] Creatinine [Mass/Vol] 0.82 mg/dL Normal 0.70-1.30 [facility] Comment on above: Performed By: #### 2 5508, 35341, 94715, 21238, 09899 #### [facility] [address] [place] [address], [place] GFR/1.73 sq M.predicted among blacks MDRD (S/P/Bld) [Vol rate/Area] mL/min/{1.73_m2} Normal >60 [facility] Comment on above: Performed By: #### 2 5508, 92889, 67768, 42115, 68908 #### [facility] [address] [place] [address], [place] GFR/1.73 sq M.predicted among non-blacks MDRD (S/P/Bld) [Vol rate/Area] mL/min/{1.73_m2} Normal >60 [facility] Comment on above: Performed By: #### 2 5508, 68832, 27260, 72243, 62990 #### [facility] [address] [place] [address], [place] Glucose [Mass/Vol] 127 mg/dL High 70-100 [facility] Comment on above: Performed By: #### 2 5508, 24644, 89974, 78091, 45771 #### [facility] [address] [place] [address], [facility] Potassium [Moles/Vol] 3.9 mmol/L Normal 3.5-5.1 [facility] Comment on above: Performed By: #### 2 5508, 58659, 98522, 17231, 24236 #### [facility] [address] [place] [address], [facility] Sodium [Moles/Vol] 136 mmol/L Normal 136-145 [facility] Comment on above: Performed By: #### 2 5508, 20893, 68192, 35809, 66408 #### [facility] [address] [place] [address], [facility] Urea nitrogen [Mass/Vol] 10 mg/dL Normal 7-25 [facility] Comment on above: Performed By: #### 2 5508, 77433, 94637, 48807, 36357 #### [facility] [address] [place] [address], [facility] ktx cbc complete blood count on 12-04-2020 Erythrocyte distribution width (RBC) [Ratio] 14.6 % Normal 11.5-15.0 [facility] Comment on above: Performed By: #### 6 1405 #### [facility] [address] [place] [address], [facility] Hematocrit (Bld) [Volume fraction] 38.7 % Low 39.0-50.0 [facility] Comment on above: Performed By: #### 6 1405 #### [facility] [address] [place] [address], [facility] Hemoglobin (Bld) [Mass/Vol] 12.8 g/dL Low 13.0-17.0 [facility] Comment on above: Performed By: #### 6 1405 #### [facility] [address] [place] [id number], [facility] MCH (RBC) [Entitic mass] 31.3 pg Normal 27.0-33.0 [facility] Comment on above: Performed By: #### 6 1405 #### [facility] [address] MCHC (RBC) [Mass/Vol] 33.1 g/dL Normal 32.0-35.0 [facility] Comment on above: Performed By: #### 6 1405 #### [facility] [address] [place] [address], [facility] MCV (RBC) [Entitic vol] 94.6 fL Normal 82.0-98.0 [facility] Comment on above: Performed By: #### 6 1405 #### [facility] [address] Nucleated RBC/100 WBC (Bld) [Ratio] 0 % Normal 0-0 [facility] Comment on above: Performed By: #### 6 1405 #### [facility] [address] PLAT CNT 224 10*3/uL Normal 150-400 [facility] Comment on above: Performed By: #### 6 1405 #### [facility] [address] RBC (Bld) [#/Vol] 4.09 10*6/uL Low 4.20-5.70 [facility] Comment on above: Performed By: #### 6 1405 #### [facility] [address] [place] [address], [facility] WBC (Bld) [#/Vol] 12.30 10*3/uL High 4.00-10.60 [facility] Comment on above: Performed By: #### 6 1405 #### [facility] [address] ktx magnesium bloodon 2020 Magnesium [Mass/Vol] 1.6 mg/dL Low 1.9-2.7 [facility] Comment on above: Performed By: #### 2 5508, 79248, 19428, 52458, 41149 #### [facility] [address] [place] [address], [place] ktx phosphoruson 12-04-2020 Phosphate [Mass/Vol] 2.4 mg/dL Low 2.5-5.0 [facility] Comment on above: Performed By: #### 2 5508, 44582, 07923, 63032, 87516 #### [facility] [address] [place] [address], [facility] TACROLIMUSon 12-03-2020 Tacrolimus (Bld) [Mass/Vol] 9.1 ng/mL Normal 5.0-20.0 [facility] Comment on above: Order Comment: Yes: Add to Previous draw if able Result Comment: The [employer] Tacrolimus assay is a delayed one-step immunoassay for the quantitative determination of tacrolimus in human whole blood using the chemiluminescent microparticle immunoassay (CMIA) technology with flexible assay protocols, referred to as Chemiflex. Performed By: #### 2 5508, 98553, 79539, 76214, 83117 #### [facility] [address] [place] [address], [place] ktx basic metabolic panelon 12-03-2020 Calcium [Mass/Vol] 9.5 mg/dL Normal 8.6-10.3 [facility] Comment on above: Performed By: #### 2 5508, 43389, 36727, 11803, 63476 #### [facility] [address] [place] [address], [place] Chloride [Moles/Vol] 102 mmol/L Normal 98-107 [facility] Comment on above: Performed By: #### 2 5508, 34236, 81849, 28182, 25266 #### [facility] [address] [place] [address], [place] CO2 [Moles/Vol] 22 mmol/L Normal 21-31 [facility] Comment on above: Performed By: #### 2 5508, 73680, 51061, 04610, 88367 #### [facility] [address] [place] [address], [place] Creatinine [Mass/Vol] 0.88 mg/dL Normal 0.70-1.30 [facility] Comment on above: Performed By: #### 2 5508, 43367, 08973, 92348, 96049 #### [facility] [address] [place] [address], [place] GFR/1.73 sq M.predicted among blacks MDRD (S/P/Bld) [Vol rate/Area] mL/min/{1.73_m2} Normal >60 [facility] Comment on above: Performed By: #### 2 5508, 84790, 10799, 96135, 99060 #### [facility] [address] [place] [address], [place] GFR/1.73 sq M.predicted among non-blacks MDRD (S/P/Bld) [Vol rate/Area] mL/min/{1.73_m2} Normal >60 [facility] Comment on above: Performed By: #### 2 5508, 43729, 99290, 96755, 91030 #### [facility] [address] [place] [address], [place] Glucose [Mass/Vol] 120 mg/dL High 70-100 [facility] Comment on above: Performed By: #### 2 5508, 41020, 04327, 98696, 84891 #### [facility] [address] [place] [address], [place] Potassium [Moles/Vol] 3.8 mmol/L Normal 3.5-5.1 [facility] Comment on above: Performed By: #### 2 5508, 29948, 70520, 31038, 96639 #### [facility] [address] [place] [address], [place] Sodium [Moles/Vol] 134 mmol/L Low 136-145 [facility] Comment on above: Performed By: #### 2 5508, 81736, 50332, 04602, 52951 #### [facility] [address] [place] [address], [facility] Urea nitrogen [Mass/Vol] 9 mg/dL Normal 7-25 [facility] Comment on above: Performed By: #### 2 5508, 99988, 28312, 69309, 14126 #### [facility] [address] [place] [address], [facility] ktx cbc complete blood count on 12-03-2020 Erythrocyte distribution width (RBC) [Ratio] 14.6 % Normal 11.5-15.0 [facility] Comment on above: Performed By: #### 6 1405 #### [facility] [address] [place] [address], [facility] Hematocrit (Bld) [Volume fraction] 40.4 % Normal 39.0-50.0 [facility] Comment on above: Performed By: #### 6 1405 #### [facility] [address] [place] [address], [facility] Hemoglobin (Bld) [Mass/Vol] 13.6 g/dL Normal 13.0-17.0 [facility] Comment on above: Performed By: #### 6 1405 #### [facility] [address] [place] [address], [facility] MCH (RBC) [Entitic mass] 31.1 pg Normal 27.0-33.0 [facility] Comment on above: Performed By: #### 6 1405 #### [facility] [address] [place] [address], [facility] MCHC (RBC) [Mass/Vol] 33.7 g/dL Normal 32.0-35.0 [facility] Comment on above: Performed By: #### 6 1405 #### [facility] [address] [place] [address], [facility] MCV (RBC) [Entitic vol] 92.4 fL Normal 82.0-98.0 [facility] Comment on above: Performed By: #### 6 1405 #### [facility] [address] [place] [address], [facility] Nucleated RBC/100 WBC (Bld) [Ratio] 0 % Normal 0-0 [facility] Comment on above: Performed By: #### 6 1405 #### [facility] [address] [facility] [address], [facility] PLAT CNT 240 10*3/uL Normal 150-400 [facility] Comment on above: Performed By: #### 6 1405 #### [facility] [address] [place] [address], [facility] RBC (Bld) [#/Vol] 4.37 10*6/uL Normal 4.20-5.70 [facility] Comment on above: Performed By: #### 6 1405 #### [facility] [address] [place] [address], [facility] WBC (Bld) [#/Vol] 12.42 10*3/uL High 4.00-10.60 [facility] Comment on above: Performed By: #### 6 1405 #### [facility] [address] [facility] [address], [facility] ktx magnesium bloodon 2020 Magnesium [Mass/Vol] 2.1 mg/dL Normal 1.9-2.7 [facility] Comment on above: Performed By: #### 2 5508, 96789, 26880, 22559, 14073 #### [facility] [address] [place] [address], [facility] ktx phosphoruson 12-03-2020 Phosphate [Mass/Vol] 3.3 mg/dL Normal 2.5-5.0 [facility] Comment on above: Performed By: #### 2 5508, 02321, 04412, 13316, 36309 #### [facility] [address] [place] [address], [facility] BASIC METABOLIC PANELon 11-15 Calcium [Mass/Vol] 10.1 mg/dL Normal 8.6-10.3 [facility] Comment on above: Order Comment: No: D o not add to previous draw Performed By: #### 2 5508, 93210, 88758, 77363, 33919 #### [facility] [address] [place] [address], [place] Chloride [Moles/Vol] 97 mmol/L Low 98-107 [facility] Comment on above: Order Comment: No: D o not add to previous draw Performed By: #### 2 5508, 70213, 28241, 09832, 64975 #### [facility] [address] [place] [address], [place] CO2 [Moles/Vol] 27 mmol/L Normal 21-31 [facility] Comment on above: Order Comment: No: D o not add to previous draw Performed By: #### 2 5508, 28582, 43101, 06634, 80545 #### [facility] [address] [place] [address], [place] Creatinine [Mass/Vol] 1.12 mg/dL Normal 0.70-1.30 [facility] Comment on above: Order Comment: No: D o not add to previous draw Performed By: #### 2 5508, 62962, 80549, 31491, 75905 #### [facility] [address] [place] [address], [place] GFR/1.73 sq M.predicted among blacks MDRD (S/P/Bld) [Vol rate/Area] mL/min/{1.73_m2} Normal >60 [facility] Comment on above: Order Comment: No: D o not add to previous draw Performed By: #### 2 5508, 08755, 74282, 82870, 42297 #### [facility] [address] [place] [address], [facility] GFR/1.73 sq M.predicted among non-blacks MDRD (S/P/Bld) [Vol rate/Area] mL/min/{1.73_m2} Normal >60 [facility] Comment on above: Order Comment: No: D o not add to previous draw Performed By: #### 2 5508, 92952, 72661, 85723, 83473 #### [facility] [address] [place] [address], [place] Glucose [Mass/Vol] 124 mg/dL High 70-100 [facility] Comment on above: Order Comment: No: D o not add to previous draw Performed By: #### 2 5508, 76606, 18259, 93421, 21654 #### [facility] [address] [place] [address], [place] Potassium [Moles/Vol] 4.4 mmol/L Normal 3.5-5.1 [facility] Comment on above: Order Comment: No: D o not add to previous draw Performed By: #### 2 5508, 51316, 46885, 06624, 14333 #### [facility] [address] [place] [address], [place] Sodium [Moles/Vol] 133 mmol/L Low 136-145 [facility] Comment on above: Order Comment: No: D o not add to previous draw Performed By: #### 2 5508, 69806, 61963, 13948, 62856 #### [facility] [address] [place] [address], [place] Urea nitrogen [Mass/Vol] 17 mg/dL Normal 7-25 [facility] Comment on above: Order Comment: No: D o not add to previous draw Performed By: #### 2 5508, 70063, 32138, 19863, 69835 #### [facility] [address] [place] [address], [place] CBC COMPLETE BLOOD COUNTon 0 8-18-2021 Erythrocyte distribution width (RBC) [Ratio] 14.7 % Normal 11.5-15.0 [facility] Comment on above: Order Comment: No: D o not add to previous draw Performed By: #### 6 1405 #### [facility] [address] [place] [address], [facility] Hematocrit (Bld) [Volume fraction] 43.7 % Normal 39.0-50.0 [facility] Comment on above: Order Comment: No: D o not add to previous draw Performed By: #### 6 1405 #### [facility] [address] [place] [address], [facility] Hemoglobin (Bld) [Mass/Vol] 14.1 g/dL Normal 13.0-17.0 [facility] Comment on above: Order Comment: No: D o not add to previous draw Performed By: #### 6 1405 #### [facility] [address] [place] [address], [facility] MCH (RBC) [Entitic mass] 30.8 pg Normal 27.0-33.0 [facility] Comment on above: Order Comment: No: D o not add to previous draw Performed By: #### 6 1405 #### [facility] [address] [place] [address], [facility] MCHC (RBC) [Mass/Vol] 32.3 g/dL Normal 32.0-35.0 [facility] Comment on above: Order Comment: No: D o not add to previous draw Performed By: #### 6 1405 #### [facility] [address] [place] [id number], [facility] MCV (RBC) [Entitic vol] 95.4 fL Normal 82.0-98.0 [facility] Comment on above: Order Comment: No: D o not add to previous draw Performed By: #### 6 1405 #### [facility] [address] Nucleated RBC/100 WBC (Bld) [Ratio] 0 % Normal 0-0 [facility] Comment on above: Order Comment: No: D o not add to previous draw Performed By: #### 6 1405 #### [facility] [address] [place] [id number], [facility] PLAT CNT 257 10*3/uL Normal 150-400 [facility] Comment on above: Order Comment: No: D o not add to previous draw Performed By: #### 6 1405 #### [facility] [address] [place] [address], [facility] RBC (Bld) [#/Vol] 4.58 10*6/uL Normal 4.20-5.70 [facility] Comment on above: Order Comment: No: D o not add to previous draw Performed By: #### 6 1405 #### [facility] [address] [place] [address], [facility] WBC (Bld) [#/Vol] 13.96 10*3/uL High 4.00-10.60 [facility] Comment on above: Order Comment: No: D o not add to previous draw Performed By: #### 6 1405 #### [facility] [address] [facility] [place] [id number], [facility] MAGNESIUM BLOODon 12-02-2020 Magnesium [Mass/Vol] 1.5 mg/dL Low 1.9-2.7 [facility] Comment on above: Order Comment: No: D o not add to previous draw Performed By: #### 2 5508, 50956, 48265, 36370, 81652 #### [facility] [address] [facility] [place] [id number], [facility] PHOSPHORUS BLOODon Phosphate [Mass/Vol] 3.8 mg/dL Normal 2.5-5.0 [facility] Comment on above: Order Comment: No: D o not add to previous draw Performed By: #### 2 5508, 73988, 76268, 96969, 81177 #### [facility] [address] [facility] PROTHROMBIN TIMEon INR Coag (PPP) [Relative time] 1.12 {INR} Normal 0.91-1.16 [facility] Comment on above: Order Comment: No: D o not add to previous draw Result Comment: ACCC P RECOMMENDED INR FOR WARFARIN THERAPY ------ ------- CONDITION INR PROPHYLAXIS OF VENOUS THROMBOSIS 2-3 (HIGH-RISK SURGERY) TREATMENT OF VENOUS THROMBOSIS 2-3 TREATMENT OF PULMONARY EMBOLISM 2-3 PREVENTION OF SYSTEMIC EMBOLISM: 2-3 ACUTE MYOCARDIAL INFARCTION TISSUE HEART VALVES VALVULAR HEART DISEASE ATRIAL FIBRILLATION RECURRENT SYSTEMIC EMBOLISM MECHANICAL HEART VALVE 2.5-3.5 FROM: ORAL ANTICOAGULANTS. MECHANISM OF ACTION, CLINICAL EFFECTIVENESS, AND OPTIMAL THERAPEUTIC RANGE. CHEST 1995;108:231S-246S. Performed By: #### 5 6101 ####[facility] PT Coag (PPP) [Time] 14.4 s Normal 12.3-14.8 [facility] Comment on above: Order Comment: No: D o not add to previous draw Result Comment: ALL RESULTS MUST BE INTERPRETED WITH RESPECT TO BLOOD DRAWING ARTIFACT OR DILUTION ERROR OF ANTICOAGULANT AT THE TIME OF SAMPLING. Performed By: #### 5 6101 ####[facility] CBC W/DIFFon 12-01-2020 ABS IMM GRANS 0.1 10*3/uL Normal 0.0-0.2 [facility] Comment on above: Performed By: #### 6 1405 #### [facility] [address] [facility] [place] [address], [facility] ABS NEUTROPHILS 12.0 10*3/uL High 1.6-7.6 [facility] Comment on above: Performed By: #### 6 1405 #### [facility] [address] [facility] [place] [place] [address], [facility] Basophils (Bld) [#/Vol] 0.1 10*3/uL Normal 0.0-0.2 [facility] Comment on above: Performed By: #### 6 1405 #### [facility] [address] [facility] [place] [place] [address], [facility] Basophils/100 WBC (Bld) 0.6 % Normal 0.0-1.0 [facility] Comment on above: Performed By: #### 6 1405 #### [facility] [address] [facility] [place] [place] [address], [facility] Eosinophils (Bld) [#/Vol] 0.1 10*3/uL Normal 0.0-0.5 [facility] Comment on above: Performed By: #### 6 1405 #### [facility] [address] [facility] [place] [address], [facility] Eosinophils/100 WBC (Bld) 0.7 % Normal 0.0-6.0 [facility] Comment on above: Performed By: #### 6 1405 #### [facility] [address] [facility] [place] [address], [facility] Erythrocyte distribution width (RBC) [Ratio] 14.7 % Normal 11.5-15.0 [facility] Comment on above: Performed By: #### 6 1405 #### [facility] [address] [facility] [place] [address], [facility] Hematocrit (Bld) [Volume fraction] 47.3 % Normal 39.0-50.0 [facility] Comment on above: Performed By: #### 6 1405 #### [facility] [address] [place] [address], [facility] Hemoglobin (Bld) [Mass/Vol] 15.5 g/dL Normal 13.0-17.0 [facility] Comment on above: Performed By: #### 6 1405 #### [facility] [address] [place] [address], [facility] IMMATURE GRANS 0.7 % Normal 0.0-1.0 [facility] Comment on above: Performed By: #### 6 1405 #### [facility] [address] [place] [address], [facility] Lymphocytes (Bld) [#/Vol] 0.6 10*3/uL Low 1.2-4.0 [facility] Comment on above: Performed By: #### 6 1405 #### [facility] [address] Lymphocytes/100 WBC (Bld) 4.3 % Low 20.0-45.0 [facility] Comment on above: Performed By: #### 6 1405 #### [facility] [address] [place] [address], [facility] MCH (RBC) [Entitic mass] 31.0 pg Normal 27.0-33.0 [facility] Comment on above: Performed By: #### 6 1405 #### [facility] [address] [place] [address], [facility] MCHC (RBC) [Mass/Vol] 32.8 g/dL Normal 32.0-35.0 [facility] Comment on above: Performed By: #### 6 1405 #### [facility] [address] [place] [address], [facility] MCV (RBC) [Entitic vol] 94.6 fL Normal 82.0-98.0 [facility] Comment on above: Performed By: #### 6 1405 #### [facility] [address] [facility] [address], [facility] Monocytes (Bld) [#/Vol] 1.0 10*3/uL Normal 0.1-1.0 [facility] Comment on above: Performed By: #### 6 1405 #### [facility] [address] [facility] [place] [address], [facility] MONOS 7.3 % Normal 5.0-12.0 [facility] Comment on above: Performed By: #### 6 1405 #### [facility] [address] [place] [address], [facility] Neutrophils/100 WBC (Bld) 86.4 % High 40.0-72.0 [facility] Comment on above: Performed By: #### 6 1405 #### [facility] [address] [facility] [place] [address], [facility] Nucleated RBC/100 WBC (Bld) [Ratio] 0 % Normal 0-0 [facility] Comment on above: Performed By: #### 6 1405 #### [facility] [address] [facility] [place] [address], [facility] PLAT CNT 289 10*3/uL Normal 150-400 [facility] Comment on above: Performed By: #### 6 1405 #### [facility] [address] [facility] [address], [facility] RBC (Bld) [#/Vol] 5.00 10*6/uL Normal 4.20-5.70 [facility] Comment on above: Performed By: #### 6 1405 #### [facility] [address] [place] [address], [facility] WBC (Bld) [#/Vol] 13.82 10*3/uL High 4.00-10.60 [facility] Comment on above: Performed By: #### 6 1405 #### [facility] [address] [place] [address], [place] COMP METABOLIC PANELon 12-01 Albumin [Mass/Vol] 4.7 g/dL Normal 3.5-5.7 [facility] Comment on above: Performed By: #### 2 5508, 67434, 04423, 64215, 95762 #### [facility] [address] [place] [address], [place] ALKALINE PHOSPH 73 IU/L Normal 34-104 [facility] Comment on above: Performed By: #### 2 5508, 62669, 72360, 82455, 91675 #### [facility] [address] [place] [address], [place] ALT [Catalytic activity/Vol] 27 U/L Normal 7-52 [facility] Comment on above: Performed By: #### 2 5508, 04363, 28740, 05201, 28161 #### [facility] [address] [place] [address], [place] AST [Catalytic activity/Vol] 21 U/L Normal 13-39 [facility] Comment on above: Performed By: #### 2 5508, 17560, 83882, 11101, 02178 #### [facility] [address] [place] [address], [place] Bilirubin [Mass/Vol] 0.6 mg/dL Normal 0.3-1.0 [facility] Comment on above: Performed By: #### 2 5508, 36433, 97377, 77022, 58814 #### [facility] [address] [place] [address], [place] Calcium [Mass/Vol] 9.9 mg/dL Normal 8.6-10.3 [facility] Comment on above: Performed By: #### 2 5508, 03142, 13931, 60263, 23233 #### [facility] [address] [place] [address], [place] Chloride [Moles/Vol] 104 mmol/L Normal 98-107 [facility] Comment on above: Performed By: #### 2 5508, 87897, 81632, 27824, 97515 #### [facility] [address] [place] [address], [place] CO2 [Moles/Vol] 25 mmol/L Normal 21-31 [facility] Comment on above: Performed By: #### 2 5508, 94925, 11608, 13661, 30301 #### [facility] [address] [place] [address], [facility] Creatinine [Mass/Vol] 1.40 mg/dL High 0.70-1.30 [facility] Comment on above: Performed By: #### 2 5508, 78585, 49832, 05472, 87671 #### [facility] [address] [place] [address], [facility] eGFR- non- 52 ml/min/1.73sq m Abnormal >60 [facility] Comment on above: Performed By: #### 2 5508, 51082, 47234, 87288, 58842 #### [facility] [address] [place] [address], [facility] GFR/1.73 sq M.predicted among blacks MDRD (S/P/Bld) [Vol rate/Area] mL/min/{1.73_m2} Normal >60 [facility] Comment on above: Performed By: #### 2 5508, 47442, 12709, 77086, 22974 #### [facility] [address] [place] [address], [place] Glucose [Mass/Vol] 133 mg/dL High 70-100 [facility] Comment on above: Performed By: #### 2 5508, 27786, 88142, 23119, 03891 #### [facility] [address] [place] [address], [place] Potassium [Moles/Vol] 4.8 mmol/L Normal 3.5-5.1 [facility] Comment on above: Performed By: #### 2 5508, 89949, 12899, 06425, 33210 #### [facility] [address] [facility]. [address] Protein [Mass/Vol] 7.1 g/dL Normal 6.0-8.3 [facility] Comment on above: Performed By: #### 2 5508, 76167, 38885, 35984, 99005 #### [facility] [address] [place] [address], [facility] Sodium [Moles/Vol] 137 mmol/L Normal 136-145 [facility] Comment on above: Performed By: #### 2 5508, 34211, 67568, 55681, 67109 #### [facility] [address] [place] [address], [facility] Urea nitrogen [Mass/Vol] 19 mg/dL Normal 7-25 [facility] Comment on above: Performed By: #### 2 5508, 11852, 04226, 15771, 86043 #### [facility] [address] [facility] [place], [place] [address] [place] [address] CT ABDOMEN AND PELVIS WO CON TRASTon 12-01-2020 CT ABDOMEN AND PELVIS WO CONTRAST [facility] Department of Radiology [address] [place] [id number] == Patient Name: VISHAL DUKE : 1960 Sex: M Age: Race: White Pt. Location: [facility] Patient Status: E Ordered Date: 12/01/2020 9:30:00 AM Completed Date: 12/01/2020 11:06 AM Requesting Provider: DERICK VIDAL Attending Provider: DERICK VIDAL Report Copy To: Signs & Symptoms: Abdominal Pain(specify) History: See Comments Comments: Kidney Abnormalites Exam: CT ABDOMEN AND PELVIS WO CONTRAST == CT ABDOMEN AND PELVIS WITHOUT IV CONTRAST HISTORY: Left-sided flank pain, history of polycystic kidneys. COMPARISON STUDY: 10/03/2018. TECHNIQUE: CT scan of the abdomen and pelvis performed without IV or PO contrast. Coronal and sagittal reformats generated and reviewed. FINDINGS: Solid visceral organs limited in evaluation secondary to lack of IV contrast. LOWER THORAX: Regions of atelectasis, no acute abnormality. HEPATOBILIARY: Multiple hepatic cysts, not significantly change from prior exam. A right hepatic cystic and has some curvilinear calcification unchanged from before. No biliary ductal dilatation. Gallbladder is normal. SPLEEN: No splenomegaly. PANCREAS: No focal masses or ductal dilatation. ADRENALS: No adrenal nodules. KIDNEYS/URETERS: Both kidneys again demonstrate innumerable cysts, multiple demonstrating high attenuation suggesting a slight degree of complexity either proteinaceous or hemorrhagic components. A cyst along the anterior aspect of the left kidney (3/44) demonstrates significant increased ill-defined/lobular internal high attenuation suggesting possible recent hemorrhage or possible developing proteinaceous contents. A few other cysts involving both kidneys also demonstrate slight differing degrees of internal high attenuation. Otherwise no change in appearance of the lower [place] kidneys. No evidence of cyst rupture. Right lower quadrant transplant kidney, no stone or collecting system dilatation. No contour deforming renal lesion of the transplant kidney. GI TRACT: No dilatation or wall thickening. Appendix is normal. PELVIC ORGANS/BLADDER: Unremarkable. PERITONEUM/RETROPERITONE UM: No free air or fluid. LYMPH NODES: No enlarged lymph nodes. VESSELS: Atherosclerotic calcifications without abdominal aortic aneurysm. BONES AND SOFT TISSUES: No suspicious osseous lesion. Small fat-containing left inguinal hernia. Retained epicardial pacing wires along the ventral chest wall. IMPRESSION: 1. Redemonstrated innumerable cysts involving both kidneys, a cyst along the ventral aspect of the left kidney has developed significantly more dependent lobular high attenuation suggesting possible cyst hemorrhage, this may be the etiology of the patient's pain. There is some slight stranding surrounding the left kidney however no definite evidence of cyst rupture. Consider short-term imaging follow-up to exclude another process. 2. Otherwise no acute abnormality. All CT scans at this facility use dose modulation, iterative reconstruction, and/or weight based dosing when appropriate to reduce radiation dose to as low as reasonably achievable. Electronically signed: José Herman. Transcribed by: [email or web address], User Resident: Electronically Signed by: JOSÉ HERMAN @ 12/01/2020 11:45 AM Normal [facility] Comment on above: Order Comment: No: D o not add to previous draw CV'D BY IMM LAB AT 1240 LIPASE BLOODon 12-01-2020 LIPASE 40 Units/L Normal [facility] Comment on above: Performed By: #### 2 5508, 85648, 98440, 07508, 30694 #### [facility] [address] [place] [address], [facility] URINALYSIS REFLEXon 12-02-19 21 Appearance (U) SL CLOUDY Abnormal CLEAR [facility] Comment on above: Order Comment: Yes: Add to Previous draw if able Performed By: #### 2 5508, 85567, 78278, 41208, 64539 #### [facility] [address] [place] [address], [facility] Bilirubin Ql (U) Negative Normal NEGATIVE [facility] Comment on above: Order Comment: Yes: Add to Previous draw if able Performed By: #### 2 5508, 48373, 59875, 45841, 88584 #### [facility] [address] [place] [address], [place] Color (U) TINO Abnormal YELLOW [facility] Comment on above: Order Comment: Yes: Add to Previous draw if able Performed By: #### 2 5508, 96018, 28013, 71025, 92308 #### [facility] [address] [place] [address], [place] EPIS NONE SEEN Normal FEW,OCC,NONE SEEN [facility] Comment on above: Order Comment: Yes: Add to Previous draw if able Performed By: #### 2 5508, 01909, 66932, 87586, 79584 #### [facility] [address] [place] [address], [place] Glucose Ql (U) Negative Normal NEGATIVE [facility] Comment on above: Order Comment: Yes: Add to Previous draw if able Performed By: #### 2 5508, 99985, 00035, 34917, 73381 #### [facility] [address] [place] [address], [place] Hemoglobin Ql (U) Negative Normal NEGATIVE [facility] Comment on above: Order Comment: Yes: Add to Previous draw if able Performed By: #### 2 5508, 91982, 28331, 72045, 28568 #### [facility] [address] [place] [address], [place] KETONE Negative Normal NEGATIVE [facility] Comment on above: Order Comment: Yes: Add to Previous draw if able Performed By: #### 2 5508, 25881, 33996, 08958, 27927 #### [facility] [address] [place] [address], [place] LEUK MARIA A Negative Normal NEGATIVE [facility] Comment on above: Order Comment: Yes: Add to Previous draw if able Performed By: #### 2 5508, 03682, 31186, 64808, 79995 #### [facility] [address] [place] [address], [place] MUCUS THREADS MOD Abnormal NONE SEEN [facility] Comment on above: Order Comment: Yes: Add to Previous draw if able Performed By: #### 2 5508, 13177, 58560, 44813, 52089 #### [facility] [address] [place] [address], [place] Nitrite Ql (U) Negative Normal NEGATIVE [facility] Comment on above: Order Comment: Yes: Add to Previous draw if able Performed By: #### 2 5508, 81672, 35710, 08412, 18931 #### [facility] [address] [place] [address], [facility] pH (U) 5.0 [pH] Normal 5.0-8.0 [facility] Comment on above: Order Comment: Yes: Add to Previous draw if able Performed By: #### 2 5508, 40012, 27039, 62477, 41532 #### [facility] [address] Protein Ql (U) 30 mg/dL Abnormal NEGATIVE [facility] Comment on above: Order Comment: Yes: Add to Previous draw if able Performed By: #### 2 5508, 94856, 21771, 82123, 23890 #### [facility] [address] RBC 0-2 Abnormal NONE SEEN [facility] Comment on above: Order Comment: Yes: Add to Previous draw if able Performed By: #### 2 5508, 55938, 43677, 18802, 62804 #### [facility] [address] SPEC GRAV 1.026 High 1.015-1.020 [facility] Comment on above: Order Comment: Yes: Add to Previous draw if able Performed By: #### 2 5508, 20712, 68560, 70887, 68108 #### [facility] [address] [place] [address], [facility] WBC UA 0-2 Abnormal NONE SEEN [facility] Comment on above: Order Comment: Yes: Add to Previous draw if able Performed By: #### 2 5508, 67436, 91489, 26732, 32710 #### [facility] [address] Pulmonary Functionon 2 021 Pulmonary Function MR #: [id number] [facility] PT. Name: Vishal Duke Date: 11/27/2020 Date of : 1960 Patient Type: D Pulmonary Function INTERPRETATION CLINICAL INDICATION: The patient is 59-year-old male with BMI of 29.6. Indication is COVID-19 pneumonia in July 2020. Patient has renal transplant in 2018. The patient smoked 1 pack/day for 20 years and quit 15 years ago. Patient is on prednisone 5 mg daily. LUNG MECHANICS: FEV1 is normal at 3.09 L which is 85% of predicted with no significant change after bronchodilators. FVC is mildly reduced to 3.69 L which is 77% of predicted with no change after bronchodilators. FEV1/FVC ratio is normal at 84% with no significant change after bronchodilators. MVV is normal at 94%. Flow volume loop is normal. LUNG VOLUMES: Residual volume is mild reduced to 78%. Total lung capacity is reduced to 76% of predicted. LUNG DIFFUSION: Uncorrected DLCO is reduced to 41%. Corrected DLCO is significantly reduced to 41% of predicted. DLCO corrected to alveolar volume is 57%. ARTERIAL BLOOD GASES: Arterial blood gas shows normal oxygenation on room air with PaO2 of 93 and sat O2 of 98.2%. AA gradient is normal for the patient age. CLINICAL IMPRESSION: The study showed normal spirometry with moderate reduced lung volumes and significant reduction in DLCO. The study raises concerns for pulmonary vascular disease like pulmonary hypertension or pulmonary embolism, parenchymal lung disease like ILD or sequela of COVID-19 pneumonia is in the differential diagnosis. Electronically Signed by: Negro Syed MD 11/29/2020 01:28 P Negro Syed MD [facility] Date Dict: 11/29/2020/01:09 Humberto/Negro Syed MD Date Trans: 11/29/2020 01:09 P/ [id number] cc: Rosa M Gonzales M.D. [facility]9 [facility] [address] [place] [facility] ARTERIAL BLOOD GAS W/COOXon 08-13-2021 BASE EXCESS 3 mmol/L Normal -2-3 [facility] Comment on above: Performed By: #### 2 5508, 92140, 07395, 64881, 43922 #### [facility] [address] [place] [address], [facility] COHB 1.5 % Normal 0.0-1.5 [facility] Comment on above: Performed By: #### 2 5508, 74141, 72799, 42954, 94023 #### [facility] [address] [place] [address], [place] DELIVERY SYSTEMS ROOM AIR Normal [facility] Comment on above: Performed By: #### 2 5508, 94021, 78412, 26880, 27558 #### [facility] [address] [place] [address], [facility] FIO2 0 % Normal [facility] Comment on above: Performed By: #### 2 5508, 24234, 72253, 51190, 40617 #### [facility] [address] [place] [address], [facility] HCO3 (Bld) [Moles/Vol] 26 mmol/L Normal 21-28 [facility] Comment on above: Performed By: #### 2 5508, 39407, 28780, 60912, 50148 #### [facility] [address] [place] [address], [place] METHB 1.2 % Normal 0.0-1.5 [facility] Comment on above: Performed By: #### 2 5508, 89723, 88882, 29625, 07013 #### [facility] [address] [place] [address], [place] Oxygen (Bld) [Partial pressure] 93 mm[Hg] Normal 83-108 [facility] Comment on above: Performed By: #### 2 5508, 53097, 38117, 97297, 46607 #### [facility] [address] [place] [address], [facility] Oxygen saturation in Blood 95.6 % Normal 94.0-97.0 [facility] Comment on above: Performed By: #### 2 5508, 21249, 92647, 17457, 88946 #### [facility] [address] [place] [address], [facility] PCO2 35 mmHg Normal 35-45 [facility] Comment on above: Performed By: #### 2 5508, 61078, 20657, 73242, 90924 #### [facility] [address] [place] [address], [facility] pH (Bld) 7.48 [pH] High 7.35-7.45 [facility] Comment on above: Performed By: #### 2 5508, 77401, 75647, 39802, 62446 #### [facility] [address] [place] [address], [facility] THB 15.4 g/dL Normal 12.0-16.3 [facility] Comment on above: Performed By: #### 2 5508, 42178, 61882, 26565, 10878 #### [facility] [address] [place] [address], [facility] CREATININE BLOODon 1 Creatinine [Mass/Vol] 1.10 mg/dL Normal 0.70-1.30 [facility] Comment on above: Order Comment: No: D o not add to previous draw Performed By: #### 2 5508, 90891, 46633, 99576, 32038 #### [facility] [address] [place] [address], [facility] GFR/1.73 sq M.predicted among blacks MDRD (S/P/Bld) [Vol rate/Area] mL/min/{1.73_m2} Normal >60 [facility] Comment on above: Order Comment: No: D o not add to previous draw Performed By: #### 2 5508, 99355, 68427, 34504, 27823 #### [facility] [address] [place] [address], [facility] GFR/1.73 sq M.predicted among non-blacks MDRD (S/P/Bld) [Vol rate/Area] mL/min/{1.73_m2} Normal >60 [facility] Comment on above: Order Comment: No: D o not add to previous draw Performed By: #### 2 5508, 95971, 80156, 48578, 51540 #### [facility] [address] [facility] [place] [address], [facility] Cardiovascular Lab Reporton 10-29-2020 Cardiovascular Lab Report [facility] Vishal Medeiros MR #: [id number] Department of Physician: Domo Mejia M.D. Division of Service Date: 10/29/2020 Cardiology Birthdate: 1960 Adult Cardiovascular Room #: 3AB [id number] [place] [address] Cardiovascular Laboratory Report FINAL IMPRESSIONS: 1. Severe in-stent restenosis of the left circumflex coronary artery successfully treated by AngioSculpt angioplasty, Shockwave intravascular lithotripsy (IVL), and noncompliant balloon angioplasty. 2. Severe stenosis of the second obtuse marginal branch of the left circumflex successfully treated by plain old balloon angioplasty (POBA). 3. Occluded left anterior descending coronary artery supplied by a patent left internal mammary artery graft to the left anterior descending. 4. Severe in-stent restenoses of a severely calcific, tortuous and ectatic right coronary artery. 5. Severe calcific peripheral arterial disease evidenced angiographically. RECOMMENDATIONS: 1. Close monitoring for development of contrast-induced nephropathy. 2. The patient will be adequately hydrated with IV normal saline. 3. A repeat basic metabolic panel will be checked in 3 to 4 days. 4. Aspirin 81 mg lifelong. 5. 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 6. Will consider elective revascularization of the right coronary artery should the patient continue to experience significant exertional angina; this will be a high risk procedure given tortuosity, calcification and ectasia. 7. Follow up with Dr. Chester in the [place] office in the next 1 to 2 months. 8. Follow up with. Dr. Gonzales, his family physician as scheduled. PROCEDURES: Limited femoral angiography, bilateral selective coronary angiography, angiography of the left internal mammary artery graft, limited angiography of the left subclavian artery, percutaneous balloon angioplasty, AngioSculpt angioplasty and Shockwave intravascular lithotripsy (IVL) of the left circumflex coronary artery, plain old balloon angioplasty (POBA) of the second obtuse marginal branch of the left circumflex coronary artery, failed attempt at deployment of a 6-Ugandan MynxGrip closure device. METHODS: After risks, benefits, and alternatives were explained, written informed consent was obtained. The patient was prepped and draped in usual sterile fashion over both groins. Using 1% lidocaine solution, local infiltration anesthesia was achieved. Using a micropuncture kit access to the right common femoral artery was obtained. A 6-Ugandan x 11 cm sheath was inserted without difficulty. Baseline femoral angiography was performed. Bilateral selective coronary angiography was performed using JL4 and JR4 catheters. Angiography of internal mammary artery graft was performed using a 6-Ugandan IM catheter. Limited angiography of the left subclavian was performed after retracting the catheter into the artery. After reviewing the images, it was elected to proceed with an interventional procedure. A 6-Ugandan XB3.5 guide catheter was advanced over J-wire and coaxially engaged into the left main ostium. A 0.014 Runthrough NS wire was advanced through the catheter across the suspect stenosis and positioned distally. Balloon angioplasty of the obtuse marginal stenosis was performed using a 2.5 x 15 mm noncompliant balloon. Balloon angioplasty of the proximal in-stent restenosis was performed sequentially using the 2.5 x 15 mm noncompliant balloon, a 3.5 x 15 mm AngioSculpt balloon, a 4.0 x 15 mm noncompliant balloon and ultimately a 4.0 x 12 mm Shockwave balloon with intravascular lithotripsy. Final angioplasty was performed using a 4.5 x 8 mm noncompliant balloon. Repeat imaging showed a satisfactory result. The wire was removed. Final images showed SO-3 flow with no dissection, thrombus, or distal wire trauma. At this point, it was elected to conclude the procedure. All catheters were removed. The femoral sheath was removed with application of manual pressure to achieve optimal hemostasis once a 6-Ugandan MynxGrip closure device failed to deploy. Overall, the patient tolerated the procedure well. There were no complications. He was to be transferred to the holding area in stable condition. FINDINGS: Hemodynamics. AO 149/84. LEFT VENTRICULOGRAPHY: This was not performed. Ejection fraction is normal by noninvasive imaging. CORONARY ARTERIES: Left main coronary artery: This arises from the left coronary cusp. It bifurcates into the left anterior descending and left circumflex coronary arteries. It shows a patent stent in the distal portion extending into the circumflex. Left anterior descending coronary artery: This is stump occluded at the ostium. Distal filling is seen via a patent left internal mammar (more content not included)... Normal [facility] BASIC METABOLIC PANELon 05-0 -2020 Calcium [Mass/Vol] 8.1 mg/dL Low 8.6-10.3 [facility] Comment on above: Order Comment: Yes: Add to Previous draw if able Performed By: #### 2 5508, 50249, 88964, 89158, 85521 #### [facility] [address] [place] [address], [facility] Chloride [Moles/Vol] 103 mmol/L Normal 98-107 [facility] Comment on above: Order Comment: Yes: Add to Previous draw if able Performed By: #### 2 5508, 38201, 27978, 07243, 14275 #### [facility] [address] [place] [address], [place] CO2 [Moles/Vol] 25 mmol/L Normal 21-31 [facility] Comment on above: Order Comment: Yes: Add to Previous draw if able Performed By: #### 2 5508, 68261, 35958, 74747, 80831 #### [facility] [address] [place] [address], [place] Creatinine [Mass/Vol] 0.88 mg/dL Normal 0.70-1.30 [facility] Comment on above: Order Comment: Yes: Add to Previous draw if able Performed By: #### 2 5508, 34171, 90016, 73254, 53899 #### [facility] [address] [place] [address], [place] GFR/1.73 sq M.predicted among blacks MDRD (S/P/Bld) [Vol rate/Area] mL/min/{1.73_m2} Normal >60 [facility] Comment on above: Order Comment: Yes: Add to Previous draw if able Performed By: #### 2 5508, 05956, 89250, 74329, 84112 #### [facility] [address] [place] [address], [place] GFR/1.73 sq M.predicted among non-blacks MDRD (S/P/Bld) [Vol rate/Area] mL/min/{1.73_m2} Normal >60 [facility] Comment on above: Order Comment: Yes: Add to Previous draw if able Performed By: #### 2 5508, 73138, 64295, 03431, 71905 #### [facility] [address] [place] [address], [place] Glucose [Mass/Vol] 119 mg/dL High 70-100 [facility] Comment on above: Order Comment: Yes: Add to Previous draw if able Performed By: #### 2 5508, 79124, 20666, 69996, 78894 #### [facility] [address] [place] [address], [place] Potassium [Moles/Vol] 3.6 mmol/L Normal 3.5-5.1 [facility] Comment on above: Order Comment: Yes: Add to Previous draw if able Performed By: #### 2 5508, 90144, 59139, 54645, 23489 #### [facility] [address] [place] [address], [place] Sodium [Moles/Vol] 133 mmol/L Low 136-145 [facility] Comment on above: Order Comment: Yes: Add to Previous draw if able Performed By: #### 2 5508, 10970, 39203, 61724, 14078 #### [facility] [address] [place] [id number], [facility] Urea nitrogen [Mass/Vol] 17 mg/dL Normal 7-25 [facility] Comment on above: Order Comment: Yes: Add to Previous draw if able Performed By: #### 2 5508, 99395, 00746, 86043, 39663 #### [facility] [address] [place] [address], [facility] CBC COMPLETE BLOOD COUNTon 0 - Erythrocyte distribution width (RBC) [Ratio] 13.3 % Normal 11.5-15.0 [facility] Comment on above: Order Comment: No: D o not add to previous draw Performed By: #### 6 1405 #### [facility] [address] Hematocrit (Bld) [Volume fraction] 47.6 % Normal 39.0-50.0 [facility] Comment on above: Order Comment: No: D o not add to previous draw Performed By: #### 6 1405 #### [facility] [address] [place] [address], [facility] Hemoglobin (Bld) [Mass/Vol] 15.9 g/dL Normal 13.0-17.0 [facility] Comment on above: Order Comment: No: D o not add to previous draw Performed By: #### 6 1405 #### [facility] [address] [place] [address], [facility] MCH (RBC) [Entitic mass] 29.1 pg Normal 27.0-33.0 [facility] Comment on above: Order Comment: No: D o not add to previous draw Performed By: #### 6 1405 #### [facility] [address] [place] [address], [facility] MCHC (RBC) [Mass/Vol] 33.4 g/dL Normal 32.0-35.0 [facility] Comment on above: Order Comment: No: D o not add to previous draw Performed By: #### 6 1405 #### [facility] [address] [facility] [address], [facility] MCV (RBC) [Entitic vol] 87.2 fL Normal 82.0-98.0 [facility] Comment on above: Order Comment: No: D o not add to previous draw Performed By: #### 6 1405 #### [facility] [address] [place] [address], [facility] Nucleated RBC/100 WBC (Bld) [Ratio] 0 % Normal 0-0 [facility] Comment on above: Order Comment: No: D o not add to previous draw Performed By: #### 6 1405 #### [facility] [address] [place] [address], [facility] PLAT CNT 306 10*3/uL Normal 150-400 [facility] Comment on above: Order Comment: No: D o not add to previous draw Performed By: #### 6 1405 #### [facility] [address] [place] [address], [facility] RBC (Bld) [#/Vol] 5.46 10*6/uL Normal 4.20-5.70 [facility] Comment on above: Order Comment: No: D o not add to previous draw Performed By: #### 6 1405 #### [facility] [address] [place] [address], [facility] WBC (Bld) [#/Vol] 10.07 10*3/uL Normal 4.00-10.60 [facility] Comment on above: Order Comment: No: D o not add to previous draw Performed By: #### 6 1405 #### [facility] [address] [place] [address], [facility] PORTABLE CHEST 1 VIEWon 05-0 PORTABLE CHEST 1 VIEW [facility] Department of Radiology [address] [place] [id number] == Patient Name: VISHAL DUKE : 1960 Sex: M Age: Race: White Pt. Location: [id number] Patient Status: I Ordered Date: 08/19/2020 6:00:00 AM Completed Date: 08/19/2020 09:01 AM Requesting Provider: MARY BANKS Attending Provider: JUAN FERREIRA Report Copy To: Signs & Symptoms: O2 Desaturation History: Comments: Aspiration Exam: PORTABLE CHEST 1 VIEW == PORTABLE CHEST 1 VIEW 08/19/2020 9:01 AM CLINICAL INDICATIONS: O2 Desaturation TECHNOLOGIST COMMENTS: pt. has covid and is SOB QUESTION FOR THE RADIOLOGIST: Aspiration PROTOCOL: AP(PA) view was obtained. COMPARISON: August 10, 2020 FINDINGS: Peripheral areas of consolidation are again noted bilaterally with worsening on the right side in the interval. The heart and mediastinum appear within normal limits with sternotomy wires in place. No pneumothorax is identified. IMPRESSION: Areas of peripheral consolidation consistent with Covid pneumonia with interval worsening on the right. Electronically signed: Dariela Vincent. Transcribed by: [id number], User Resident: Electronically Signed by: DARIELA VINCENT @ 08/19/2020 10:20 AM Normal [facility] Comment on above: Order Comment: No: D o not add to previous draw CV'D BY [facility] AT 1240 TACROLIMUSon 08-19-2020 Tacrolimus (Bld) [Mass/Vol] 8.5 ng/mL Normal 5.0-20.0 [facility] Comment on above: Order Comment: No: D o not add to previous draw Result Comment: The [employer] Tacrolimus assay is a delayed one-step immunoassay for the quantitative determination of tacrolimus in human whole blood using the chemiluminescent microparticle immunoassay (CMIA) technology with flexible assay protocols, referred to as Chemiflex. Performed By: #### 2 5508, 72521, 32866, 33263, 56257 #### [facility] [address] [place] [address], [facility] BASIC METABOLIC PANELon 05-0 -2020 Calcium [Mass/Vol] 8.8 mg/dL Normal 8.6-10.3 [facility] Comment on above: Order Comment: No: D o not add to previous draw Pt in bath room askme to come back Performed By: #### 3 5200 #### [facility] [address] [place] [address], [facility] Chloride [Moles/Vol] 100 mmol/L Normal 98-107 [facility] Comment on above: Order Comment: No: D o not add to previous draw Pt in bath room askme to come back Performed By: #### 3 5200 #### [facility] [address] [place] [address], [place] CO2 [Moles/Vol] 28 mmol/L Normal 21-31 [facility] Comment on above: Order Comment: No: D o not add to previous draw Pt in bath room askme to come back Performed By: #### 3 5200 #### [facility] [address] [place] [address], [place] Creatinine [Mass/Vol] 0.87 mg/dL Normal 0.70-1.30 [facility] Comment on above: Order Comment: No: D o not add to previous draw Pt in bath room askme to come back Performed By: #### 3 5200 #### [facility] [address] [place] [address], [facility] GFR/1.73 sq M.predicted among blacks MDRD (S/P/Bld) [Vol rate/Area] mL/min/{1.73_m2} Normal >60 [facility] Comment on above: Order Comment: No: D o not add to previous draw Pt in bath room askme to come back Performed By: #### 3 5200 #### [facility] [address] [place] [address], [place] GFR/1.73 sq M.predicted among non-blacks MDRD (S/P/Bld) [Vol rate/Area] mL/min/{1.73_m2} Normal >60 [facility] Comment on above: Order Comment: No: D o not add to previous draw Pt in bath room askme to come back Performed By: #### 3 5200 #### [facility] [address] [place] [address], [place] Glucose [Mass/Vol] 110 mg/dL High 70-100 [facility] Comment on above: Order Comment: No: D o not add to previous draw Pt in bath room askme to come back Performed By: #### 3 5200 #### [facility] [address] [place] [address], [place] Potassium [Moles/Vol] 3.7 mmol/L Normal 3.5-5.1 [facility] Comment on above: Order Comment: No: D o not add to previous draw Pt in bath room askme to come back Performed By: #### 3 5200 #### [facility] [address] [place] [address], [place] Sodium [Moles/Vol] 137 mmol/L Normal 136-145 [facility] Comment on above: Order Comment: No: D o not add to previous draw Pt in bath room askme to come back Performed By: #### 3 5200 #### [facility] [address] [place] [address], [place] Urea nitrogen [Mass/Vol] 18 mg/dL Normal 7-25 [facility] Comment on above: Order Comment: No: D o not add to previous draw Pt in bath room askme to come back Performed By: #### 3 5200 #### [facility] [address] [place] [address], [facility] TACROLIMUSon 08-17-2020 Tacrolimus (Bld) [Mass/Vol] 4.0 ng/mL Low 5.0-20.0 [facility] Comment on above: Order Comment: Unkno wn Result Comment: The [employer] Tacrolimus assay is a delayed one-step immunoassay for the quantitative determination of tacrolimus in human whole blood using the chemiluminescent microparticle immunoassay (CMIA) technology with flexible assay protocols, referred to as Chemiflex. Performed By: #### 2 5508, 00141, 87156, 11689, 43630 #### [facility] [address] [place] [address], [facility] BASIC METABOLIC PANELon Calcium [Mass/Vol] 8.3 mg/dL Low 8.6-10.3 [facility] Comment on above: Order Comment: Yes: Add to Previous draw if able Performed By: #### 2 5508, 19941, 95596, 91501, 64570 #### [facility] [address] [place] [address], [facility] Chloride [Moles/Vol] 104 mmol/L Normal 98-107 [facility] Comment on above: Order Comment: Yes: Add to Previous draw if able Performed By: #### 2 5508, 98767, 87324, 68504, 66117 #### [facility] [address] [place] [address], [facility] CO2 [Moles/Vol] 24 mmol/L Normal 21-31 [facility] Comment on above: Order Comment: Yes: Add to Previous draw if able Performed By: #### 2 5508, 01775, 78870, 20981, 95631 #### [facility] [address] [place] [address], [place] Creatinine [Mass/Vol] 0.82 mg/dL Normal 0.70-1.30 [facility] Comment on above: Order Comment: Yes: Add to Previous draw if able Performed By: #### 2 5508, 31392, 89319, 52716, 89392 #### [facility] [address] [place] [address], [place] GFR/1.73 sq M.predicted among blacks MDRD (S/P/Bld) [Vol rate/Area] mL/min/{1.73_m2} Normal >60 [facility] Comment on above: Order Comment: Yes: Add to Previous draw if able Performed By: #### 2 5508, 29510, 16808, 27457, 33093 #### [facility] [address] [place] [address], [place] GFR/1.73 sq M.predicted among non-blacks MDRD (S/P/Bld) [Vol rate/Area] mL/min/{1.73_m2} Normal >60 [facility] Comment on above: Order Comment: Yes: Add to Previous draw if able Performed By: #### 2 5508, 76774, 02645, 23106, 80390 #### [facility] [address] [place] [address], [place] Glucose [Mass/Vol] 114 mg/dL High 70-100 [facility] Comment on above: Order Comment: Yes: Add to Previous draw if able Performed By: #### 2 5508, 14988, 70303, 49710, 27728 #### [facility] [address] [place] [address], [place] Potassium [Moles/Vol] 4.1 mmol/L Normal 3.5-5.1 [facility] Comment on above: Order Comment: Yes: Add to Previous draw if able Performed By: #### 2 5508, 76420, 97917, 46542, 90965 #### [facility] [address] [place] [address], [place] Sodium [Moles/Vol] 135 mmol/L Low 136-145 [facility] Comment on above: Order Comment: Yes: Add to Previous draw if able Performed By: #### 2 5508, 73236, 65355, 43635, 36672 #### [facility] [address] [place] [address], [facility] Urea nitrogen [Mass/Vol] 24 mg/dL Normal 7-25 [facility] Comment on above: Order Comment: Yes: Add to Previous draw if able Performed By: #### 2 5508, 28250, 18190, 57726, 76256 #### [facility] [address] [place] [address], [facility] MAGNESIUM BLOODon 08-16-2020 Magnesium [Mass/Vol] 1.9 mg/dL Normal 1.9-2.7 [facility] Comment on above: Order Comment: No: D o not add to previous draw Performed By: #### 4 1000, 54382, 31249 ####[facility] [facility] [place] [address], [facility] PHOSPHORUS BLOODon Phosphate [Mass/Vol] 3.1 mg/dL Normal 2.5-5.0 [facility] Comment on above: Order Comment: No: D o not add to previous draw Performed By: #### 4 1000, 02734, 40421 ####[facility] [facility] [place] [address], [facility] TACROLIMUSon 08-16-2020 Tacrolimus (Bld) [Mass/Vol] 3.5 ng/mL Low 5.0-20.0 [facility] Comment on above: Order Comment: Unkno wn Result Comment: The [employer] Tacrolimus assay is a delayed one-step immunoassay for the quantitative determination of tacrolimus in human whole blood using the chemiluminescent microparticle immunoassay (CMIA) technology with flexible assay protocols, referred to as Chemiflex. Performed By: #### 2 5508, 00472, 88428, 77773, 14050 #### [facility] [address] [place] [address], [facility] C REACTIVE PROTEINon 021 CRP [Mass/Vol] 20.9 mg/L High 0.0-7.0 [facility] Comment on above: Order Comment: Yes: Add to Previous draw if able Performed By: #### 2 5508, 31683, 66471, 52331, 90418 #### [facility] [address] CPKon 08-15-2020 CK [Catalytic activity/Vol] 38 U/L Normal 30-223 [facility] Comment on above: Order Comment: Unkno wn Performed By: #### 2 5508, 96220, 71467, 58438, 83679 #### [facility] [address] [facility] D DIMER TESTon 08-15-2020 D-DIMER TEST 2.03 mcg/mL FEU High 0.27-0.49 [facility] Comment on above: Order Comment: Yes: Add to Previous draw if able Result Comment: D-Di priscilla values of less than 0.50 ug/ml (FEU) are considered to be a negative predictor of thrombosis. However, the D-Dimer result should be used in conjunction with pretest probability and should not be used alone to diagnose a thrombotic event. Performed By: #### 2 5508, 68082, 18133, 84309, 26511 #### [facility] [address] [facility] [place] [address], [facility] FERRITINon 08-15-2020 Ferritin [Mass/Vol] 1412 ng/mL High 24-336 [facility] Comment on above: Order Comment: Unkno wn Performed By: #### 2 5508, 50435, 03489, 13100, 61621 #### [facility] [address] [facility] [place] [address], [facility] LDH BLOODon 08-15-2020 LDH 457 Units/L High 140-271 [facility] Comment on above: Order Comment: Unkno wn Performed By: #### 2 5508, 75086, 92253, 19000, 86840 #### [facility] [address] [place] [address], [facility] LIVER BATTERYon 08-15-2020 Albumin [Mass/Vol] 3.1 g/dL Low 3.5-5.7 [facility] Comment on above: Order Comment: Unkno wn Performed By: #### 2 5508, 15841, 13474, 26078, 62578 #### [facility] [address] [place] [address], [facility] ALKALINE PHOSPH 94 IU/L Normal 34-104 [facility] Comment on above: Order Comment: Unkno wn Performed By: #### 2 5508, 66075, 95638, 39403, 47671 #### [facility] [address] [place] [address], [facility] ALT [Catalytic activity/Vol] 108 U/L High 7-52 [facility] Comment on above: Order Comment: Unkno wn Performed By: #### 2 5508, 44510, 27817, 93427, 88848 #### [facility] [address] [place] [address], [facility] AST [Catalytic activity/Vol] 54 U/L High 13-39 [facility] Comment on above: Order Comment: Unkno wn Performed By: #### 2 5508, 22838, 15231, 08508, 67135 #### [facility] [address] [place] [address], [place] Bilirubin [Mass/Vol] 0.8 mg/dL Normal 0.3-1.0 [facility] Comment on above: Order Comment: Unkno wn Performed By: #### 2 5508, 83536, 82988, 52663, 66140 #### [facility] [address] [place] [address], [facility] Bilirubin.direct [Mass/Vol] 0.2 mg/dL Normal 0.0-0.2 [facility] Comment on above: Order Comment: Unkno wn Performed By: #### 2 5508, 81816, 06325, 61146, 04143 #### [facility] [address] [place] [address], [facility] Protein [Mass/Vol] 5.9 g/dL Low 6.0-8.3 [facility] Comment on above: Order Comment: Unkno wn Performed By: #### 2 5508, 78469, 96368, 15904, 20995 #### [facility] [address] [place] [address], [facility] TACROLIMUSon 08-15-2020 Tacrolimus (Bld) [Mass/Vol] 4.4 ng/mL Low 5.0-20.0 [facility] Comment on above: Order Comment: Yes: Add to Previous draw if able Result Comment: The [employer] Tacrolimus assay is a delayed one-step immunoassay for the quantitative determination of tacrolimus in human whole blood using the chemiluminescent microparticle immunoassay (CMIA) technology with flexible assay protocols, referred to as Chemiflex. Performed By: #### 2 5508, 88704, 11675, 30121, 00496 #### [facility] [address] [place] [address], [facility] BASIC METABOLIC PANELon 07-18 Calcium [Mass/Vol] 8.2 mg/dL Low 8.6-10.3 [facility] Comment on above: Order Comment: No: D o not add to previous draw Performed By: #### 2 5508, 32933, 32470, 74793, 45681 #### [facility] [address] [place] [address], [facility] Chloride [Moles/Vol] 102 mmol/L Normal 98-107 [facility] Comment on above: Order Comment: No: D o not add to previous draw Performed By: #### 2 5508, 07182, 41224, 02031, 37105 #### [facility] [address] [place] [address], [facility] CO2 [Moles/Vol] 19 mmol/L Low 21-31 [facility] Comment on above: Order Comment: No: D o not add to previous draw Performed By: #### 2 5508, 46807, 93003, 67006, 23912 #### [facility] [address] [place] [address], [place] Creatinine [Mass/Vol] 0.95 mg/dL Normal 0.70-1.30 [facility] Comment on above: Order Comment: No: D o not add to previous draw Performed By: #### 2 5508, 73816, 45400, 40393, 83070 #### [facility] [address] [place] [address], [place] GFR/1.73 sq M.predicted among blacks MDRD (S/P/Bld) [Vol rate/Area] mL/min/{1.73_m2} Normal >60 [facility] Comment on above: Order Comment: No: D o not add to previous draw Performed By: #### 2 5508, 41648, 67563, 91683, 45977 #### [facility] [address] [place] [address], [place] GFR/1.73 sq M.predicted among non-blacks MDRD (S/P/Bld) [Vol rate/Area] mL/min/{1.73_m2} Normal >60 [facility] Comment on above: Order Comment: No: D o not add to previous draw Performed By: #### 2 5508, 64099, 30228, 75311, 19271 #### [facility] [address] [place] [address], [place] Glucose [Mass/Vol] 253 mg/dL High 70-100 [facility] Comment on above: Order Comment: No: D o not add to previous draw Performed By: #### 2 5508, 62934, 68997, 22166, 78471 #### [facility] [address] [place] [address], [place] Potassium [Moles/Vol] 4.0 mmol/L Normal 3.5-5.1 [facility] Comment on above: Order Comment: No: D o not add to previous draw Performed By: #### 2 5508, 89512, 08007, 60943, 51958 #### [facility] [address] [place] [address], [facility] Sodium [Moles/Vol] 130 mmol/L Low 136-145 [facility] Comment on above: Order Comment: No: D o not add to previous draw Performed By: #### 2 5508, 39892, 13022, 54264, 69676 #### [facility] [address] [place] [address], [facility] Urea nitrogen [Mass/Vol] 34 mg/dL High 7-25 [facility] Comment on above: Order Comment: No: D o not add to previous draw Performed By: #### 2 5508, 81496, 27876, 28948, 58625 #### [facility] [address] C REACTIVE PROTEINon 021 CRP [Mass/Vol] 19.7 mg/L High 0.0-7.0 [facility] Comment on above: Order Comment: No: D o not add to previous draw Performed By: #### 6 1405 #### [facility] [address] [place] [address], [facility] COMP METABOLIC PANELon 08-14 Albumin [Mass/Vol] 3.0 g/dL Low 3.5-5.7 [facility] Comment on above: Order Comment: This order is a replacement of the rejected order with accession [id number]. Performed By: #### 2 5508, 31914, 08573, 34831, 12029 #### [facility] [address] [place] [address], [facility] ALKALINE PHOSPH 81 IU/L Normal 34-104 [facility] Comment on above: Order Comment: This order is a replacement of the rejected order with accession [id number]. Performed By: #### 2 5508, 50820, 00753, 46992, 38420 #### [facility] [address] [place] [address], [facility] ALT [Catalytic activity/Vol] 80 U/L High 7-52 [facility] Comment on above: Order Comment: This order is a replacement of the rejected order with accession [id number]. Performed By: #### 2 5508, 72873, 60688, 11610, 28144 #### [facility] [address] [place] [address], [facility] AST [Catalytic activity/Vol] 52 U/L High 13-39 [facility] Comment on above: Order Comment: This order is a replacement of the rejected order with accession [id number]. Performed By: #### 2 5508, 15762, 97495, 73777, 97616 #### [facility] [address] [place] [id number], [facility] Bilirubin [Mass/Vol] 0.7 mg/dL Normal 0.3-1.0 [facility] Comment on above: Order Comment: This order is a replacement of the rejected order with accession [id number]. Performed By: #### 2 5508, 74006, 79354, 77349, 23919 #### [facility] [address] [place] [address], [facility] Calcium [Mass/Vol] 8.1 mg/dL Low 8.6-10.3 [facility] Comment on above: Order Comment: This order is a replacement of the rejected order with accession [id number]. Performed By: #### 2 5508, 92824, 02481, 67079, 60472 #### [facility] [address] [place] [id number], [facility] Chloride [Moles/Vol] 102 mmol/L Normal 98-107 [facility] Comment on above: Order Comment: This order is a replacement of the rejected order with accession [id number]. Performed By: #### 2 5508, 70621, 81648, 52389, 54118 #### [facility] [address] [place] [address], [facility] CO2 [Moles/Vol] 24 mmol/L Normal 21-31 [facility] Comment on above: Order Comment: This order is a replacement of the rejected order with accession [id number]. Performed By: #### 2 5508, 50600, 04924, 59234, 50990 #### [facility] [address] [place] [address], [place] Creatinine [Mass/Vol] 0.98 mg/dL Normal 0.70-1.30 [facility] Comment on above: Order Comment: This order is a replacement of the rejected order with accession [id number]. Performed By: #### 2 5508, 42984, 64106, 24852, 06943 #### [facility] [address] [place] [address], [place] GFR/1.73 sq M.predicted among blacks MDRD (S/P/Bld) [Vol rate/Area] mL/min/{1.73_m2} Normal >60 [facility] Comment on above: Order Comment: This order is a replacement of the rejected order with accession [id number]. Performed By: #### 2 5508, 88327, 43007, 25607, 82022 #### [facility] [address] [place] [address], [place] GFR/1.73 sq M.predicted among non-blacks MDRD (S/P/Bld) [Vol rate/Area] mL/min/{1.73_m2} Normal >60 [facility] Comment on above: Order Comment: This order is a replacement of the rejected order with accession [id number]. Performed By: #### 2 5508, 26937, 64994, 17136, 45585 #### [facility] [address] [place] [address], [place] Glucose [Mass/Vol] 141 mg/dL High 70-100 [facility] Comment on above: Order Comment: This order is a replacement of the rejected order with accession [id number]. Performed By: #### 2 5508, 91662, 33922, 84322, 16327 #### [facility] [address] [place] [address], [facility] Potassium [Moles/Vol] 4.2 mmol/L Normal 3.5-5.1 [facility] Comment on above: Order Comment: This order is a replacement of the rejected order with accession [id number]. Performed By: #### 2 5508, 46078, 53164, 76031, 15261 #### [facility] [address] Protein [Mass/Vol] 5.6 g/dL Low 6.0-8.3 [facility] Comment on above: Order Comment: This order is a replacement of the rejected order with accession [id number]. Performed By: #### 2 5508, 48014, 65497, 60739, 38045 #### [facility] [address] [facility]. [address] Sodium [Moles/Vol] 132 mmol/L Low 136-145 [facility] Comment on above: Order Comment: This order is a replacement of the rejected order with accession [id number]. Performed By: #### 2 5508, 99033, 17375, 24364, 70091 #### [facility] [address] Urea nitrogen [Mass/Vol] 32 mg/dL High 7-25 [facility] Comment on above: Order Comment: This order is a replacement of the rejected order with accession [id number]. Performed By: #### 2 5508, 38575, 50153, 58746, 52595 #### [facility] [address] [facility] CPKon 08-14-2020 CK [Catalytic activity/Vol] 47 U/L Normal 30-223 [facility] Comment on above: Order Comment: No: D o not add to previous draw Performed By: #### 2 5508, 26349, 54213, 64551, 63850 #### [facility] [address] [place] [address], [facility] D DIMER TESTon 08-14-2020 D-DIMER TEST 2.41 mcg/mL FEU High 0.27-0.49 [facility] Comment on above: Order Comment: No: D o not add to previous draw Result Comment: D-Di priscilla values of less than 0.50 ug/ml (FEU) are considered to be a negative predictor of thrombosis. However, the D-Dimer result should be used in conjunction with pretest probability and should not be used alone to diagnose a thrombotic event. Performed By: #### 6 1405 #### [facility] [address] [place] [address], [facility] FERRITINon 08-14-2020 Ferritin [Mass/Vol] 836 ng/mL High 24-336 [facility] Comment on above: Order Comment: No: D o not add to previous draw Performed By: #### 2 5508, 07616, 40115, 35524, 82687 #### [facility] [address] [facility] [place] [place] [address], [facility] LDH BLOODon 08-14-2020 LDH 310 Units/L High 140-271 [facility] Comment on above: Order Comment: No: D o not add to previous draw Performed By: #### 2 5508, 40879, 34250, 02972, 09359 #### [facility] [address] [place] [address], [facility] LIVER BATTERYon 08-14-2020 Albumin [Mass/Vol] 2.9 g/dL Low 3.5-5.7 [facility] Comment on above: Order Comment: No: D o not add to previous draw Performed By: #### 2 5508, 77263, 13896, 42797, 06633 #### [facility] [address] [place] [address], [facility] ALKALINE PHOSPH 78 IU/L Normal 34-104 [facility] Comment on above: Order Comment: No: D o not add to previous draw Performed By: #### 2 5508, 51395, 31744, 48470, 07847 #### [facility] [address] [place] [id number], [facility] ALT [Catalytic activity/Vol] 83 U/L High 7-52 [facility] Comment on above: Order Comment: No: D o not add to previous draw Performed By: #### 2 5508, 04402, 84567, 95611, 77032 #### [facility] [address] [place] [address], [place] AST [Catalytic activity/Vol] 46 U/L High 13-39 [facility] Comment on above: Order Comment: No: D o not add to previous draw Performed By: #### 2 5508, 29519, 59783, 15466, 10977 #### [facility] [address] [place] [address], [place] Bilirubin [Mass/Vol] 0.6 mg/dL Normal 0.3-1.0 [facility] Comment on above: Order Comment: No: D o not add to previous draw Performed By: #### 2 5508, 28815, 89412, 00662, 29009 #### [facility] [address] [place] [address], [place] Bilirubin.direct [Mass/Vol] 0.2 mg/dL Normal 0.0-0.2 [facility] Comment on above: Order Comment: No: D o not add to previous draw Performed By: #### 2 5508, 26684, 84218, 17359, 02913 #### [facility] [address] [place] [address], [place] Protein [Mass/Vol] 5.3 g/dL Low 6.0-8.3 [facility] Comment on above: Order Comment: No: D o not add to previous draw Performed By: #### 2 5508, 54973, 66055, 38335, 61612 #### [facility] [address] [place] [address], [facility] OSMOLALITY BLOODon Osmolality [Osmolality] 291 mosm/kg Normal 285-305 [facility] Comment on above: Order Comment: No: D o not add to previous draw Performed By: #### 2 5508, 83806, 29838, 10112, 84251 #### [facility] [address] [facility] [place] [address], [facility] TACROLIMUSon 08-14-2020 Tacrolimus (Bld) [Mass/Vol] 9.7 ng/mL Normal 5.0-20.0 [facility] Comment on above: Order Comment: Yes: Add to Previous draw if able Result Comment: The [employer] Tacrolimus assay is a delayed one-step immunoassay for the quantitative determination of tacrolimus in human whole blood using the chemiluminescent microparticle immunoassay (CMIA) technology with flexible assay protocols, referred to as Chemiflex. Performed By: #### 2 5508, 63599, 57227, 30733, 03358 #### [facility] [address] [facility] [place] [place] [address], [facility] Tacrolimus (Bld) [Mass/Vol] 5.7 ng/mL Normal 5.0-20.0 [facility] Comment on above: Order Comment: Yes: Add to Previous draw if able Result Comment: The [employer] Tacrolimus assay is a delayed one-step immunoassay for the quantitative determination of tacrolimus in human whole blood using the chemiluminescent microparticle immunoassay (CMIA) technology with flexible assay protocols, referred to as Chemiflex. Performed By: #### 2 5508, 07643, 26724, 99582, 86884 #### [facility] [address] [facility] [place] [place] [address], [facility] COMP METABOLIC PANELon 08-12 Albumin [Mass/Vol] 3.2 g/dL Low 3.5-5.7 [facility] Comment on above: Order Comment: No: D o not add to previous draw Performed By: #### 2 5508, 74991, 21249, 41758, 17581 #### [facility] [address] [place] [address], [facility] ALKALINE PHOSPH 89 IU/L Normal 34-104 [facility] Comment on above: Order Comment: No: D o not add to previous draw Performed By: #### 2 5508, 59459, 55817, 83152, 37844 #### [facility] [address] [place] [address], [place] ALT [Catalytic activity/Vol] 69 U/L High 7-52 [facility] Comment on above: Order Comment: No: D o not add to previous draw Performed By: #### 2 5508, 80931, 16351, 86958, 49008 #### [facility] [address] [place] [address], [place] AST [Catalytic activity/Vol] 54 U/L High 13-39 [facility] Comment on above: Order Comment: No: D o not add to previous draw Performed By: #### 2 5508, 02450, 53834, 92252, 28455 #### [facility] [address] [place] [address], [place] Bilirubin [Mass/Vol] 1.0 mg/dL Normal 0.3-1.0 [facility] Comment on above: Order Comment: No: D o not add to previous draw Performed By: #### 2 5508, 35970, 35880, 83491, 29115 #### [facility] [address] [place] [address], [place] Calcium [Mass/Vol] 8.8 mg/dL Normal 8.6-10.3 [facility] Comment on above: Order Comment: No: D o not add to previous draw Performed By: #### 2 5508, 12261, 40199, 74387, 42662 #### [facility] [address] [place] [address], [place] Chloride [Moles/Vol] 97 mmol/L Low 98-107 [facility] Comment on above: Order Comment: No: D o not add to previous draw Performed By: #### 2 5508, 60286, 98534, 48532, 86603 #### [facility] [address] [place] [address], [place] CO2 [Moles/Vol] 24 mmol/L Normal 21-31 [facility] Comment on above: Order Comment: No: D o not add to previous draw Performed By: #### 2 5508, 06394, 29745, 41633, 63705 #### [facility] [address] [place] [address], [place] Creatinine [Mass/Vol] 0.82 mg/dL Normal 0.70-1.30 [facility] Comment on above: Order Comment: No: D o not add to previous draw Performed By: #### 2 5508, 39273, 04046, 88033, 99497 #### [facility] [address] [place] [address], [place] GFR/1.73 sq M.predicted among blacks MDRD (S/P/Bld) [Vol rate/Area] mL/min/{1.73_m2} Normal >60 [facility] Comment on above: Order Comment: No: D o not add to previous draw Performed By: #### 2 5508, 28820, 58255, 94221, 42504 #### [facility] [address] [place] [address], [place] GFR/1.73 sq M.predicted among non-blacks MDRD (S/P/Bld) [Vol rate/Area] mL/min/{1.73_m2} Normal >60 [facility] Comment on above: Order Comment: No: D o not add to previous draw Performed By: #### 2 5508, 66107, 81468, 19512, 04889 #### [facility] [address] [place] [address], [place] Glucose [Mass/Vol] 154 mg/dL High 70-100 [facility] Comment on above: Order Comment: No: D o not add to previous draw Performed By: #### 2 5508, 32100, 79024, 50153, 73039 #### [facility] [address] [place] [address], [place] Potassium [Moles/Vol] 4.9 mmol/L Normal 3.5-5.1 [facility] Comment on above: Order Comment: No: D o not add to previous draw Performed By: #### 2 5508, 60717, 26632, 34773, 92186 #### [facility] [address] [place] [address], [place] Protein [Mass/Vol] 6.1 g/dL Normal 6.0-8.3 [facility] Comment on above: Order Comment: No: D o not add to previous draw Performed By: #### 2 5508, 76350, 11471, 58805, 11316 #### [facility] [address] [place] [address], [place] Sodium [Moles/Vol] 128 mmol/L Low 136-145 [facility] Comment on above: Order Comment: No: D o not add to previous draw Performed By: #### 2 5508, 78806, 29540, 16417, 52932 #### [facility] [address] [place] [address], [place] Urea nitrogen [Mass/Vol] 32 mg/dL High 7-25 [facility] Comment on above: Order Comment: No: D o not add to previous draw Performed By: #### 2 5508, 09016, 31453, 15038, 60983 #### [facility] [address] [place] [address], [place] OSMOLALITY URINEon 1 OSMOLALITY 857 mOsm/kg Normal 50-1400 [facility] Comment on above: Order Comment: No: D o not add to previous draw Performed By: #### 2 5508, 12662, 20522, 63895, 59836 #### [facility] [address] SODIUM URINE RANDOMon 2020 Sodium (U) [Moles/Vol] 51 mmol/L Normal [facility] Comment on above: Order Comment: No: D o not add to previous draw Result Comment: Ther e are no established reference values for random urine specimens Performed By: #### 2 5508, 68137, 51395, 65303, 19752 #### [facility] [address] [facility]. [address] TACROLIMUSon 08-12-2020 Tacrolimus (Bld) [Mass/Vol] 5.2 ng/mL Normal 5.0-20.0 [facility] Comment on above: Order Comment: Unkno wn Result Comment: The [employer] Tacrolimus assay is a delayed one-step immunoassay for the quantitative determination of tacrolimus in human whole blood using the chemiluminescent microparticle immunoassay (CMIA) technology with flexible assay protocols, referred to as Chemiflex. Performed By: #### 9 9914 ####[facility] BASIC METABOLIC PANELon - Calcium [Mass/Vol] 8.6 mg/dL Normal 8.6-10.3 [facility] Comment on above: Order Comment: No: D o not add to previous draw Performed By: #### 2 5508, 57161, 36896, 08871, 09759 #### [facility] [address] [place] [address], [facility] Chloride [Moles/Vol] 97 mmol/L Low 98-107 [facility] Comment on above: Order Comment: No: D o not add to previous draw Performed By: #### 2 5508, 67505, 53044, 04433, 99819 #### [facility] [address] [place] [address], [facility] CO2 [Moles/Vol] 23 mmol/L Normal 21-31 [facility] Comment on above: Order Comment: No: D o not add to previous draw Performed By: #### 2 5508, 91536, 59865, 98999, 86179 #### [facility] [address] [place] [address], [place] Creatinine [Mass/Vol] 0.82 mg/dL Normal 0.70-1.30 [facility] Comment on above: Order Comment: No: D o not add to previous draw Performed By: #### 2 5508, 27988, 27426, 49868, 01638 #### [facility] [address] [place] [address], [place] GFR/1.73 sq M.predicted among blacks MDRD (S/P/Bld) [Vol rate/Area] mL/min/{1.73_m2} Normal >60 [facility] Comment on above: Order Comment: No: D o not add to previous draw Performed By: #### 2 5508, 85469, 06187, 52763, 28638 #### [facility] [address] [place] [address], [place] GFR/1.73 sq M.predicted among non-blacks MDRD (S/P/Bld) [Vol rate/Area] mL/min/{1.73_m2} Normal >60 [facility] Comment on above: Order Comment: No: D o not add to previous draw Performed By: #### 2 5508, 47000, 84964, 90850, 76613 #### [facility] [address] [place] [address], [place] Glucose [Mass/Vol] 166 mg/dL High 70-100 [facility] Comment on above: Order Comment: No: D o not add to previous draw Performed By: #### 2 5508, 98761, 74542, 86801, 88063 #### [facility] [address] [place] [address], [place] Potassium [Moles/Vol] 4.9 mmol/L Normal 3.5-5.1 [facility] Comment on above: Order Comment: No: D o not add to previous draw Performed By: #### 2 5508, 62943, 01223, 34762, 53219 #### [facility] [address] [place] [address], [facility] Sodium [Moles/Vol] 127 mmol/L Low 136-145 [facility] Comment on above: Order Comment: No: D o not add to previous draw Performed By: #### 2 5508, 93394, 52134, 25266, 84185 #### [facility] [address] [place] [address], [facility] Urea nitrogen [Mass/Vol] 33 mg/dL High 7-25 [facility] Comment on above: Order Comment: No: D o not add to previous draw Performed By: #### 2 5508, 62042, 16456, 29429, 68041 #### [facility] [address] [place] [address], [facility] CREATININE URINE RANDOMon Creatinine (U) [Mass/Vol] 59.0 mg/dL Normal [facility] Comment on above: Order Comment: Yes: Add to Previous draw if able Result Comment: Ther e are no established reference values for random urine specimens Performed By: #### 2 5508, 37168, 56089, 93024, 61776 #### [facility] [address] [place] [address], [place] MAGNESIUM BLOODon 08-11-2020 Magnesium [Mass/Vol] 1.7 mg/dL Low 1.9-2.7 [facility] Comment on above: Order Comment: No: D o not add to previous draw Performed By: #### 2 5508, 92425, 82810, 81941, 28926 #### [facility] [address] [place] [address], [place] SODIUM URINE RANDOMon 2020 Sodium (U) [Moles/Vol] 90 mmol/L Normal [facility] Comment on above: Order Comment: Yes: Add to Previous draw if able Result Comment: Ther e are no established reference values for random urine specimens Performed By: #### 2 5508, 84582, 77422, 69144, 16697 #### [facility] [address] TACROLIMUSon 08-11-2020 Tacrolimus (Bld) [Mass/Vol] 6.3 ng/mL Normal 5.0-20.0 [facility] Comment on above: Order Comment: Yes: Add to Previous draw if able Result Comment: The [employer] Tacrolimus assay is a delayed one-step immunoassay for the quantitative determination of tacrolimus in human whole blood using the chemiluminescent microparticle immunoassay (CMIA) technology with flexible assay protocols, referred to as Chemiflex. Performed By: #### 2 5508, 72118, 26116, 73833, 67548 #### [facility] [address] BASIC METABOLIC PANELon 07-17 Calcium [Mass/Vol] 8.3 mg/dL Low 8.6-10.3 [facility] Comment on above: Order Comment: Yes: Add to Previous draw if able Performed By: #### 2 5508, 79994, 27749, 81930, 79176 #### [facility] [address] [place] [address], [facility] Chloride [Moles/Vol] 102 mmol/L Normal 98-107 [facility] Comment on above: Order Comment: Yes: Add to Previous draw if able Performed By: #### 2 5508, 05143, 67386, 55846, 55654 #### [facility] [address] [place] [address], [facility] CO2 [Moles/Vol] 20 mmol/L Low 21-31 [facility] Comment on above: Order Comment: Yes: Add to Previous draw if able Performed By: #### 2 5508, 92136, 53599, 49592, 23397 #### [facility] [address] [place] [address], [facility] Creatinine [Mass/Vol] 0.78 mg/dL Normal 0.70-1.30 [facility] Comment on above: Order Comment: Yes: Add to Previous draw if able Performed By: #### 2 5508, 37562, 46925, 02475, 22224 #### [facility] [address] [place] [address], [place] GFR/1.73 sq M.predicted among blacks MDRD (S/P/Bld) [Vol rate/Area] mL/min/{1.73_m2} Normal >60 [facility] Comment on above: Order Comment: Yes: Add to Previous draw if able Performed By: #### 2 5508, 00984, 37546, 34128, 82838 #### [facility] [address] [place] [address], [place] GFR/1.73 sq M.predicted among non-blacks MDRD (S/P/Bld) [Vol rate/Area] mL/min/{1.73_m2} Normal >60 [facility] Comment on above: Order Comment: Yes: Add to Previous draw if able Performed By: #### 2 5508, 46355, 00463, 72941, 99981 #### [facility] [address] [place] [address], [place] Glucose [Mass/Vol] 199 mg/dL High 70-100 [facility] Comment on above: Order Comment: Yes: Add to Previous draw if able Performed By: #### 2 5508, 02874, 00608, 64467, 43207 #### [facility] [address] [place] [address], [place] Potassium [Moles/Vol] 4.9 mmol/L Normal 3.5-5.1 [facility] Comment on above: Order Comment: Yes: Add to Previous draw if able Performed By: #### 2 5508, 04140, 18669, 66715, 26409 #### [facility] [address] [place] [address], [place] Sodium [Moles/Vol] 129 mmol/L Low 136-145 [facility] Comment on above: Order Comment: Yes: Add to Previous draw if able Performed By: #### 2 5508, 91318, 26554, 98727, 80185 #### [facility] [address] [place] [address], [facility] Urea nitrogen [Mass/Vol] 33 mg/dL High 7-25 [facility] Comment on above: Order Comment: Yes: Add to Previous draw if able Performed By: #### 2 5508, 42629, 09130, 80763, 77806 #### [facility] [address] [place] [address], [facility] CBC COMPLETE BLOOD COUNTon 08-10-2020 Erythrocyte distribution width (RBC) [Ratio] 12.9 % Normal 11.5-15.0 [facility] Comment on above: Order Comment: No: D o not add to previous draw Performed By: #### 6 1405 #### [facility] [address] [place] [address], [facility] Hematocrit (Bld) [Volume fraction] 45.9 % Normal 39.0-50.0 [facility] Comment on above: Order Comment: No: D o not add to previous draw Performed By: #### 6 1405 #### [facility] [address] [place] [address], [facility] Hemoglobin (Bld) [Mass/Vol] 15.3 g/dL Normal 13.0-17.0 [facility] Comment on above: Order Comment: No: D o not add to previous draw Performed By: #### 6 1405 #### [facility] [address] [place] [address], [place] MCH (RBC) [Entitic mass] 29.3 pg Normal 27.0-33.0 [facility] Comment on above: Order Comment: No: D o not add to previous draw Performed By: #### 6 1405 #### [facility] [address] [place] [address], [place] MCHC (RBC) [Mass/Vol] 33.3 g/dL Normal 32.0-35.0 [facility] Comment on above: Order Comment: No: D o not add to previous draw Performed By: #### 6 1405 #### [facility] [address] [place] [place] [address], [facility] MCV (RBC) [Entitic vol] 87.8 fL Normal 82.0-98.0 [facility] Comment on above: Order Comment: No: D o not add to previous draw Performed By: #### 6 1405 #### [facility] [address] [place] [address], [facility] Nucleated RBC/100 WBC (Bld) [Ratio] 0 % Normal 0-0 [facility] Comment on above: Order Comment: No: D o not add to previous draw Performed By: #### 6 1405 #### [facility] [address] [place] [address], [facility] PLAT CNT 422 10*3/uL High 150-400 [facility] Comment on above: Order Comment: No: D o not add to previous draw Performed By: #### 6 1405 #### [facility] [address] [place] [address], [facility] RBC (Bld) [#/Vol] 5.23 10*6/uL Normal 4.20-5.70 [facility] Comment on above: Order Comment: No: D o not add to previous draw Performed By: #### 6 1405 #### [facility] [address] [facility] [address], [facility] WBC (Bld) [#/Vol] 7.77 10*3/uL Normal 4.00-10.60 [facility] Comment on above: Order Comment: No: D o not add to previous draw Performed By: #### 6 1405 #### [facility] [address] [facility] [place], [place] [address], [facility] MAGNESIUM BLOODon 08-10-2020 Magnesium [Mass/Vol] 1.7 mg/dL Low 1.9-2.7 [facility] Comment on above: Order Comment: Yes: Add to Previous draw if able Performed By: #### 2 5508, 24940, 54178, 20819, 62[address] #### [place] [address], [facility] PORTABLE CHEST 1 VIEWon 07-17 PORTABLE CHEST 1 VIEW [facility] Department of Radiology [address] [place] [id number] == Patient Name: VISHAL DUKE : 1960 Sex: M Age: Race: White Pt. Location: [id number] Patient Status: I Ordered Date: 08/10/2020 7:40:00 AM Completed Date: 08/10/2020 09:42 AM Requesting Provider: GIOVANA COSME Attending Provider: YOJANA TRUJILLO Report Copy To: Signs & Symptoms: O2 Desaturation History: Comments: Evaluate for Atelectasis Exam: PORTABLE CHEST 1 VIEW == PORTABLE CHEST 1 VIEW 08/10/2020 9:42 AM CLINICAL INDICATIONS: O2 Desaturation TECHNOLOGIST COMMENTS: shortness of breath QUESTION FOR THE RADIOLOGIST: Evaluate for Atelectasis PROTOCOL: AP(PA) view was obtained. COMPARISON: 08/05/2020 FINDINGS: Portable AP upright view of the chest. Cardiac silhouette is upper limits of normal considering magnification by the frontal technique. Sternotomy wires appear intact and unchanged. Multifocal parenchymal consolidations are seen; left more than right worrisome for multifocal pneumonia which could be viral in nature. Bony spurring in the AC joints bilaterally suggesting degenerative arthritis. Trachea is in the midline. IMPRESSION: Multifocal consolidation worrisome for multifocal pneumonia; left more than right similar to prior study. No pleural effusion or pneumothorax. Electronically signed: Brett Mc. Transcribed by: [email or web address], User Resident: Electronically Signed by: BRETT MC @ 08/10/2020 10:10 AM Normal [facility] Comment on above: Order Comment: No: D o not add to previous draw CV'D BY IMM LAB AT 1240 TACROLIMUSon 08-10-2020 Tacrolimus (Bld) [Mass/Vol] 11.2 ng/mL Normal 5.0-20.0 [facility] Comment on above: Order Comment: No: D o not add to previous draw Result Comment: The [employer] Tacrolimus assay is a delayed one-step immunoassay for the quantitative determination of tacrolimus in human whole blood using the chemiluminescent microparticle immunoassay (CMIA) technology with flexible assay protocols, referred to as Chemiflex. Performed By: #### 2 5508, 84823, 28447, 33476, 82122 #### [facility] [address] [place] [address], [facility] TACROLIMUSon 08-09-2020 Tacrolimus (Bld) [Mass/Vol] 11.0 ng/mL Normal 5.0-20.0 [facility] Comment on above: Order Comment: Yes: Add to Previous draw if able Result Comment: The [employer] Tacrolimus assay is a delayed one-step immunoassay for the quantitative determination of tacrolimus in human whole blood using the chemiluminescent microparticle immunoassay (CMIA) technology with flexible assay protocols, referred to as Chemiflex. Performed By: #### 2 5508, 62913, 44484, 80773, 61033 #### [facility] [address] [facility] [place] [address], [facility] TROPONIN-Ion 08-09-2020 Troponin I.cardiac [Mass/Vol] 5.31 ng/mL Critically high 0.00-0.04 [facility] Comment on above: Order Comment: Yes: Add to Previous draw if able Result Comment: M-SC EVIOUS CRITICAL RESULT REFERENCE RANGES: 0.00 - 0.04 ng/ml NORMAL 0.05 - 0.50 ng/ml INDETERMINATE > 0.50 ng/ml CONSISTENT WITH AN M.I. Performed By: #### 2 5508, 07716, 47428, 51389, 10848 #### [facility] [address] UFH HEPARIN ASSAYon 08-10-19 UNFRACTIONATED HEPARIN <0.10 Critically low 0.30-0.70 [facility] Comment on above: Result Comment: Axtell roxaban and Apixaban will interfere with the anti Xa assay used to monitor UFH and LMWH. Results called. Accurately read back by Luiz Shaffer RN at 0709 Performed By: #### 3 0477 ####[facility]3000 [facility].[address] COMP METABOLIC PANELon 08-08 Albumin [Mass/Vol] 2.8 g/dL Low 3.5-5.7 [facility] Comment on above: Order Comment: Yes: Add to Previous draw if able Performed By: #### 2 5508, 70994, 10140, 30160, 75169 #### [facility] [address] [place] [address], [facility] ALKALINE PHOSPH 70 IU/L Normal 34-104 [facility] Comment on above: Order Comment: Yes: Add to Previous draw if able Performed By: #### 2 5508, 04448, 74490, 87732, 22203 #### [facility] [address] [place] [address], [facility] ALT [Catalytic activity/Vol] 30 U/L Normal 7-52 [facility] Comment on above: Order Comment: Yes: Add to Previous draw if able Performed By: #### 2 5508, 21490, 85707, 31973, 64727 #### [facility] [address] [place] [address], [facility] AST [Catalytic activity/Vol] 48 U/L High 13-39 [facility] Comment on above: Order Comment: Yes: Add to Previous draw if able Performed By: #### 2 5508, 06159, 16442, 30761, 50904 #### [facility] [address] [place] [address], [place] Bilirubin [Mass/Vol] 0.9 mg/dL Normal 0.3-1.0 [facility] Comment on above: Order Comment: Yes: Add to Previous draw if able Performed By: #### 2 5508, 92765, 77082, 62127, 65658 #### [facility] [address] [place] [address], [place] Calcium [Mass/Vol] 8.1 mg/dL Low 8.6-10.3 [facility] Comment on above: Order Comment: Yes: Add to Previous draw if able Performed By: #### 2 5508, 19165, 78706, 92711, 12422 #### [facility] [address] [place] [address], [place] Chloride [Moles/Vol] 104 mmol/L Normal 98-107 [facility] Comment on above: Order Comment: Yes: Add to Previous draw if able Performed By: #### 2 5508, 67473, 86013, 19185, 94247 #### [facility] [address] [place] [address], [place] CO2 [Moles/Vol] 19 mmol/L Low 21-31 [facility] Comment on above: Order Comment: Yes: Add to Previous draw if able Performed By: #### 2 5508, 12242, 98005, 59808, 45351 #### [facility] [address] [place] [address], [place] Creatinine [Mass/Vol] 0.92 mg/dL Normal 0.70-1.30 [facility] Comment on above: Order Comment: Yes: Add to Previous draw if able Performed By: #### 2 5508, 87040, 28588, 69047, 32680 #### [facility] [address] [place] [address], [place] GFR/1.73 sq M.predicted among blacks MDRD (S/P/Bld) [Vol rate/Area] mL/min/{1.73_m2} Normal >60 [facility] Comment on above: Order Comment: Yes: Add to Previous draw if able Performed By: #### 2 5508, 56240, 42273, 35488, 51802 #### [facility] [address] [place] [address], [place] GFR/1.73 sq M.predicted among non-blacks MDRD (S/P/Bld) [Vol rate/Area] mL/min/{1.73_m2} Normal >60 [facility] Comment on above: Order Comment: Yes: Add to Previous draw if able Performed By: #### 2 5508, 22060, 84771, 75274, 57589 #### [facility] [address] [place] [address], [place] Glucose [Mass/Vol] 159 mg/dL High 70-100 [facility] Comment on above: Order Comment: Yes: Add to Previous draw if able Performed By: #### 2 5508, 99192, 00544, 83456, 11045 #### [facility] [address] [place] [address], [place] Potassium [Moles/Vol] 5.2 mmol/L High 3.5-5.1 [facility] Comment on above: Order Comment: Yes: Add to Previous draw if able Performed By: #### 2 5508, 60069, 63788, 95082, 85507 #### [facility] [address] [place] [address], [place] Protein [Mass/Vol] 5.5 g/dL Low 6.0-8.3 [facility] Comment on above: Order Comment: Yes: Add to Previous draw if able Performed By: #### 2 5508, 96071, 91936, 06422, 83068 #### [facility] [address] [place] [address], [facility] Sodium [Moles/Vol] 133 mmol/L Low 136-145 [facility] Comment on above: Order Comment: Yes: Add to Previous draw if able Performed By: #### 2 5508, 16826, 55917, 88071, 67892 #### [facility] [address] Urea nitrogen [Mass/Vol] 35 mg/dL High 7-25 [facility] Comment on above: Order Comment: Yes: Add to Previous draw if able Performed By: #### 2 5508, 03346, 35138, 56117, 40728 #### [facility] [address] [facility]. [address] TACROLIMUSon 08-08-2020 Tacrolimus (Bld) [Mass/Vol] 7.8 ng/mL Normal 5.0-20.0 [facility] Comment on above: Order Comment: Unkno wn Result Comment: The [employer] Tacrolimus assay is a delayed one-step immunoassay for the quantitative determination of tacrolimus in human whole blood using the chemiluminescent microparticle immunoassay (CMIA) technology with flexible assay protocols, referred to as Chemiflex. Performed By: #### 2 5508, 33814, 44414, 61443, 61188 #### [facility] [address] [facility]. [address] UFH HEPARIN ASSAYon 08-09-19 21 UNFRACTIONATED HEPARIN 0.74 IU/mL High 0.30-0.70 [facility] Comment on above: Result Comment: Gabby roxaban and Apixaban will interfere with the anti Xa assay used to monitor UFH and LMWH. Performed By: #### 3 0477 ####[facility]3000 [facility].[address] C REACTIVE PROTEINon 021 CRP [Mass/Vol] 75.8 mg/L High 0.0-7.0 [facility] Comment on above: Order Comment: No: D o not add to previous draw CV'D BY IMM LAB AT 1240 Performed By: #### 6 1405 #### [facility] [address] [facility] [address], [facility] SEDIMENTATION RATEon 021 SED RATE 30 mm/hr High 0-10 [facility] Comment on above: Order Comment: No: D o not add to previous draw Performed By: #### 6 1405 #### [facility] [address] [facility]. [address] TACROLIMUSon 08-07-2020 Tacrolimus (Bld) [Mass/Vol] 9.1 ng/mL Normal 5.0-20.0 [facility] Comment on above: Order Comment: Unkno wn Result Comment: The [employer] Tacrolimus assay is a delayed one-step immunoassay for the quantitative determination of tacrolimus in human whole blood using the chemiluminescent microparticle immunoassay (CMIA) technology with flexible assay protocols, referred to as Chemiflex. Performed By: #### 9 9914 #### [facility] [address] TROPONIN-Ion 08-07-2020 Troponin I.cardiac [Mass/Vol] 7.37 ng/mL Critically high 0.00-0.04 [facility] Comment on above: Order Comment: Yes: Add to Previous draw if able Result Comment: M-SC EVIOUS CRITICAL RESULT 42.94 REFERENCE RANGES: 0.00 - 0.04 ng/ml NORMAL 0.05 - 0.50 ng/ml INDETERMINATE > 0.50 ng/ml CONSISTENT WITH AN M.I. Performed By: #### 2 5508, 26306, 53267, 60933, 38039 #### [facility] [address] UFH HEPARIN ASSAYon 08-08-19 UNFRACTIONATED HEPARIN 0.48 IU/mL Normal 0.30-0.70 [facility] Comment on above: Result Comment: Gabby roxaban and Apixaban will interfere with the anti Xa assay used to monitor UFH and LMWH. Performed By: #### 3 0477 ####[facility] [place] [address], [facility] CBC COMPLETE BLOOD COUNTon - Erythrocyte distribution width (RBC) [Ratio] 13.2 % Normal 11.5-15.0 [facility] Comment on above: Order Comment: Yes: Add to Previous draw if able Performed By: #### 2 5508, 40802, 77474, 46128, 70330 #### [facility] [address] [place] [address], [facility] Hematocrit (Bld) [Volume fraction] 44.8 % Normal 39.0-50.0 [facility] Comment on above: Order Comment: Yes: Add to Previous draw if able Performed By: #### 2 5508, 02350, 74330, 93281, 79588 #### [facility] [address] [place] [address], [facility] Hemoglobin (Bld) [Mass/Vol] 14.8 g/dL Normal 13.0-17.0 [facility] Comment on above: Order Comment: Yes: Add to Previous draw if able Performed By: #### 2 5508, 52838, 68932, 25099, 31375 #### [facility] [address] [place] [address], [facility] MCH (RBC) [Entitic mass] 29.0 pg Normal 27.0-33.0 [facility] Comment on above: Order Comment: Yes: Add to Previous draw if able Performed By: #### 2 5508, 58717, 45185, 52934, 93066 #### [facility] [address] [place] [address], [place] MCHC (RBC) [Mass/Vol] 33.0 g/dL Normal 32.0-35.0 [facility] Comment on above: Order Comment: Yes: Add to Previous draw if able Performed By: #### 2 5508, 97833, 23725, 01697, 46526 #### [facility] [address] MCV (RBC) [Entitic vol] 87.8 fL Normal 82.0-98.0 [facility] Comment on above: Order Comment: Yes: Add to Previous draw if able Performed By: #### 2 5508, 84107, 10326, 16693, 35454 #### [facility] [address] [facility] [place] [place] [address], [facility] Nucleated RBC/100 WBC (Bld) [Ratio] 0 % Normal 0-0 [facility] Comment on above: Order Comment: Yes: Add to Previous draw if able Performed By: #### 2 5508, 61042, 33154, 01682, 81592 #### [facility] [address] PLAT CNT 367 10*3/uL Normal 150-400 [facility] Comment on above: Order Comment: Yes: Add to Previous draw if able Performed By: #### 2 5508, 89959, 22826, 94766, 02848 #### [facility] [address] [facility] [address], [facility] RBC (Bld) [#/Vol] 5.10 10*6/uL Normal 4.20-5.70 [facility] Comment on above: Order Comment: Yes: Add to Previous draw if able Performed By: #### 2 5508, 86408, 03706, 24732, 31518 #### [facility] [address] [facility] [address], [facility] WBC (Bld) [#/Vol] 3.94 10*3/uL Low 4.00-10.60 [facility] Comment on above: Order Comment: Yes: Add to Previous draw if able Performed By: #### 2 5508, 17746, 61954, 43603, 50652 #### [facility] [address] [place] [address], [facility] COMP METABOLIC PANELon 08-06 Albumin [Mass/Vol] 3.0 g/dL Low 3.5-5.7 [facility] Comment on above: Order Comment: No: D o not add to previous drawLABS DRAWN IN SAME HAND PAUSED IV. PT IS TO REMAIN FACE DOWN ONSTOMACH PER RN SO THAT IS THE ONLY PLACE WE CAN DRAW FROM RIGHT NOW. Performed By: #### 2 5508, 41618, 97183, 03101, 06033 #### [facility] [address] [place] [address], [facility] ALKALINE PHOSPH 74 IU/L Normal 34-104 [facility] Comment on above: Order Comment: No: D o not add to previous drawLABS DRAWN IN SAME HAND PAUSED IV. PT IS TO REMAIN FACE DOWN ONSTOMACH PER RN SO THAT IS THE ONLY PLACE WE CAN DRAW FROM RIGHT NOW. Performed By: #### 2 5508, 75624, 40933, 03718, 84872 #### [facility] [address] [place] [address], [facility] ALT [Catalytic activity/Vol] 42 U/L Normal 7-52 [facility] Comment on above: Order Comment: No: D o not add to previous drawLABS DRAWN IN SAME HAND PAUSED IV. PT IS TO REMAIN FACE DOWN ONSTOMACH PER RN SO THAT IS THE ONLY PLACE WE CAN DRAW FROM RIGHT NOW. Performed By: #### 2 5508, 27590, 55030, 35268, 71870 #### [facility] [address] [place] [address], [facility] AST [Catalytic activity/Vol] 112 U/L High 13-39 [facility] Comment on above: Order Comment: No: D o not add to previous drawLABS DRAWN IN SAME HAND PAUSED IV. PT IS TO REMAIN FACE DOWN ONSTOMACH PER RN SO THAT IS THE ONLY PLACE WE CAN DRAW FROM RIGHT NOW. Performed By: #### 2 5508, 29023, 83895, 00020, 08112 #### [facility] [address] [place] [address], [facility] Bilirubin [Mass/Vol] 1.4 mg/dL High 0.3-1.0 [facility] Comment on above: Order Comment: No: D o not add to previous drawLABS DRAWN IN SAME HAND PAUSED IV. PT IS TO REMAIN FACE DOWN ONSTOMACH PER RN SO THAT IS THE ONLY PLACE WE CAN DRAW FROM RIGHT NOW. Performed By: #### 2 5508, 65317, 69398, 09985, 69629 #### [facility] [address] [place] [address], [facility] Calcium [Mass/Vol] 8.3 mg/dL Low 8.6-10.3 [facility] Comment on above: Order Comment: No: D o not add to previous drawLABS DRAWN IN SAME HAND PAUSED IV. PT IS TO REMAIN FACE DOWN ONSTOMACH PER RN SO THAT IS THE ONLY PLACE WE CAN DRAW FROM RIGHT NOW. Performed By: #### 2 5508, 14345, 72502, 64524, 49680 #### [facility] [address] [place] [address], [facility] Chloride [Moles/Vol] 105 mmol/L Normal 98-107 [facility] Comment on above: Order Comment: No: D o not add to previous drawLABS DRAWN IN SAME HAND PAUSED IV. PT IS TO REMAIN FACE DOWN ONSTOMACH PER RN SO THAT IS THE ONLY PLACE WE CAN DRAW FROM RIGHT NOW. Performed By: #### 2 5508, 95698, 06991, 88939, 08397 #### [facility] [address] [place] [address], [place] CO2 [Moles/Vol] 20 mmol/L Low 21-31 [facility] Comment on above: Order Comment: No: D o not add to previous drawLABS DRAWN IN SAME HAND PAUSED IV. PT IS TO REMAIN FACE DOWN ONSTOMACH PER RN SO THAT IS THE ONLY PLACE WE CAN DRAW FROM RIGHT NOW. Performed By: #### 2 5508, 48256, 37879, 13055, 65999 #### [facility] [address] [place] [address], [place] Creatinine [Mass/Vol] 0.91 mg/dL Normal 0.70-1.30 [facility] Comment on above: Order Comment: No: D o not add to previous drawLABS DRAWN IN SAME HAND PAUSED IV. PT IS TO REMAIN FACE DOWN ONSTOMACH PER RN SO THAT IS THE ONLY PLACE WE CAN DRAW FROM RIGHT NOW. Performed By: #### 2 5508, 57112, 96123, 41948, 31037 #### [facility] [address] [place] [address], [place] GFR/1.73 sq M.predicted among blacks MDRD (S/P/Bld) [Vol rate/Area] mL/min/{1.73_m2} Normal >60 [facility] Comment on above: Order Comment: No: D o not add to previous drawLABS DRAWN IN SAME HAND PAUSED IV. PT IS TO REMAIN FACE DOWN ONSTOMACH PER RN SO THAT IS THE ONLY PLACE WE CAN DRAW FROM RIGHT NOW. Performed By: #### 2 5508, 63956, 28646, 74237, 94557 #### [facility] [address] [place] [address], [place] GFR/1.73 sq M.predicted among non-blacks MDRD (S/P/Bld) [Vol rate/Area] mL/min/{1.73_m2} Normal >60 [facility] Comment on above: Order Comment: No: D o not add to previous drawLABS DRAWN IN SAME HAND PAUSED IV. PT IS TO REMAIN FACE DOWN ONSTOMACH PER RN SO THAT IS THE ONLY PLACE WE CAN DRAW FROM RIGHT NOW. Performed By: #### 2 5508, 80886, 13777, 29730, 29162 #### [facility] [address] [place] [address], [place] Glucose [Mass/Vol] 153 mg/dL High 70-100 [facility] Comment on above: Order Comment: No: D o not add to previous drawLABS DRAWN IN SAME HAND PAUSED IV. PT IS TO REMAIN FACE DOWN ONSTOMACH PER RN SO THAT IS THE ONLY PLACE WE CAN DRAW FROM RIGHT NOW. Performed By: #### 2 5508, 31077, 42034, 00039, 47500 #### [facility] [address] [place] [address], [facility] Potassium [Moles/Vol] 4.7 mmol/L Normal 3.5-5.1 [facility] Comment on above: Order Comment: No: D o not add to previous drawLABS DRAWN IN SAME HAND PAUSED IV. PT IS TO REMAIN FACE DOWN ONSTOMACH PER RN SO THAT IS THE ONLY PLACE WE CAN DRAW FROM RIGHT NOW. Performed By: #### 2 5508, 96881, 60791, 57449, 81318 #### [facility] [address] [place] [address], [facility] Protein [Mass/Vol] 5.8 g/dL Low 6.0-8.3 [facility] Comment on above: Order Comment: No: D o not add to previous drawLABS DRAWN IN SAME HAND PAUSED IV. PT IS TO REMAIN FACE DOWN ONSTOMACH PER RN SO THAT IS THE ONLY PLACE WE CAN DRAW FROM RIGHT NOW. Performed By: #### 2 5508, 11239, 57123, 44381, 42882 #### [facility] [address] [place] [address], [facility] Sodium [Moles/Vol] 136 mmol/L Normal 136-145 [facility] Comment on above: Order Comment: No: D o not add to previous drawLABS DRAWN IN SAME HAND PAUSED IV. PT IS TO REMAIN FACE DOWN ONSTOMACH PER RN SO THAT IS THE ONLY PLACE WE CAN DRAW FROM RIGHT NOW. Performed By: #### 2 5508, 41375, 44666, 35282, 47461 #### [facility] [address] [place] [address], [facility] Urea nitrogen [Mass/Vol] 28 mg/dL High 7-25 [facility] Comment on above: Order Comment: No: D o not add to previous drawLABS DRAWN IN SAME HAND PAUSED IV. PT IS TO REMAIN FACE DOWN ONSTOMACH PER RN SO THAT IS THE ONLY PLACE WE CAN DRAW FROM RIGHT NOW. Performed By: #### 2 5508, 79553, 49871, 26619, 53518 #### [facility] [address] [place] [address], [facility] TACROLIMUSon 08-06-2020 Tacrolimus (Bld) [Mass/Vol] 9.2 ng/mL Normal 5.0-20.0 [facility] Comment on above: Order Comment: Unkno wnLABS DRAWN IN SAME HAND PAUSED IV. PT IS TO REMAIN FACE DOWN ONSTOMACH PER RN SO THAT IS THE ONLY PLACE WE CAN DRAW FROM RIGHT NOW. Result Comment: The [employer] Tacrolimus assay is a delayed one-step immunoassay for the quantitative determination of tacrolimus in human whole blood using the chemiluminescent microparticle immunoassay (CMIA) technology with flexible assay protocols, referred to as Chemiflex. Performed By: #### 2 5508, 65117, 11732, 18265, 55585 #### [facility] [address] [place] [address], [facility] TROPONIN-Ion 08-06-2020 Troponin I.cardiac [Mass/Vol] 42.94 ng/mL Critically high 0.00-0.04 [facility] Comment on above: Result Comment: M-SC EVIOUS CRITICAL RESULT REFERENCE RANGES: 0.00 - 0.04 ng/ml NORMAL 0.05 - 0.50 ng/ml INDETERMINATE > 0.50 ng/ml CONSISTENT WITH AN M.I. Performed By: #### 2 5508, 04444, 24270, 31495, 28804 #### [facility] [address] [place] [address], [facility] Troponin I.cardiac [Mass/Vol] 46.69 ng/mL Critically high 0.00-0.04 [facility] Comment on above: Order Comment: No: D o not add to previous draw Result Comment: M-SC EVIOUS CRITICAL RESULT REFERENCE RANGES: 0.00 - 0.04 ng/ml NORMAL 0.05 - 0.50 ng/ml INDETERMINATE > 0.50 ng/ml CONSISTENT WITH AN M.I. Performed By: #### 3 5200 ####[facility] [place] [address], [place] UFH HEPARIN ASSAYon 08-07-19 UNFRACTIONATED HEPARIN 0.34 IU/mL Normal 0.30-0.70 [facility] Comment on above: Order Comment: No: D o not add to previous draw Result Comment: Axtell roxaban and Apixaban will interfere with the anti Xa assay used to monitor UFH and LMWH. Performed By: #### 6 1405 #### [facility] [address] [place] [address], [facility] CHLORIDE URon 08-05-2020 Chloride [Moles/Vol] 26.0 mmol/L Normal [facility] Comment on above: Order Comment: Yes: Add to Previous draw if able Result Comment: Ther e are no established reference values for random urine specimens Performed By: #### 2 5508, 67620, 01675, 57024, 44498 #### [facility] [address] COMP METABOLIC PANELon 08-05 Albumin [Mass/Vol] 3.0 g/dL Low 3.5-5.7 [facility] Comment on above: Order Comment: Yes: Add to Previous draw if able Performed By: #### 2 5508, 91861, 71526, 16301, 67642 #### [facility] [address] [place] [address], [facility] ALKALINE PHOSPH 78 IU/L Normal 34-104 [facility] [facility] Comment on above: Order Comment: Yes: Add to Previous draw if able Performed By: #### 2 5508, 04241, 23712, 03876, 24737 #### [facility] [address] [place] [address], [facility] ALT [Catalytic activity/Vol] 35 U/L Normal 7-52 [facility] Comment on above: Order Comment: Yes: Add to Previous draw if able Performed By: #### 2 5508, 16549, 30876, 42390, 53258 #### [facility] [address] [place] [id number], [facility] AST [Catalytic activity/Vol] 54 U/L High 13-39 [facility] Comment on above: Order Comment: Yes: Add to Previous draw if able Performed By: #### 2 5508, 63957, 64538, 18184, 65181 #### [facility] [address] [place] [address], [place] Bilirubin [Mass/Vol] 1.0 mg/dL Normal 0.3-1.0 [facility] Comment on above: Order Comment: Yes: Add to Previous draw if able Performed By: #### 2 5508, 42189, 17303, 17295, 94562 #### [facility] [address] [place] [address], [place] Calcium [Mass/Vol] 8.2 mg/dL Low 8.6-10.3 [facility] Comment on above: Order Comment: Yes: Add to Previous draw if able Performed By: #### 2 5508, 12243, 77654, 15659, 60531 #### [facility] [address] [place] [address], [place] Chloride [Moles/Vol] 105 mmol/L Normal 98-107 [facility] Comment on above: Order Comment: Yes: Add to Previous draw if able Performed By: #### 2 5508, 25202, 52882, 92410, 95805 #### [facility] [address] [place] [address], [place] CO2 [Moles/Vol] 19 mmol/L Low 21-31 [facility] Comment on above: Order Comment: Yes: Add to Previous draw if able Performed By: #### 2 5508, 80301, 15302, 28534, 58315 #### [facility] [address] [place] [address], [place] Creatinine [Mass/Vol] 0.89 mg/dL Normal 0.70-1.30 [facility] Comment on above: Order Comment: Yes: Add to Previous draw if able Performed By: #### 2 5508, 60113, 81044, 37294, 42664 #### [facility] [address] [place] [address], [place] GFR/1.73 sq M.predicted among blacks MDRD (S/P/Bld) [Vol rate/Area] mL/min/{1.73_m2} Normal >60 [facility] Comment on above: Order Comment: Yes: Add to Previous draw if able Performed By: #### 2 5508, 96766, 90531, 22667, 01926 #### [facility] [address] [place] [address], [place] GFR/1.73 sq M.predicted among non-blacks MDRD (S/P/Bld) [Vol rate/Area] mL/min/{1.73_m2} Normal >60 [facility] Comment on above: Order Comment: Yes: Add to Previous draw if able Performed By: #### 2 5508, 23138, 47789, 33993, 83641 #### [facility] [address] [place] [address], [place] Glucose [Mass/Vol] 174 mg/dL High 70-100 [facility] Comment on above: Order Comment: Yes: Add to Previous draw if able Performed By: #### 2 5508, 17031, 30708, 09722, 35026 #### [facility] [address] [place] [address], [place] Potassium [Moles/Vol] 4.9 mmol/L Normal 3.5-5.1 [facility] Comment on above: Order Comment: Yes: Add to Previous draw if able Performed By: #### 2 5508, 16742, 91268, 05818, 92436 #### [facility] [address] [place] [address], [place] Protein [Mass/Vol] 5.5 g/dL Low 6.0-8.3 [facility] Comment on above: Order Comment: Yes: Add to Previous draw if able Performed By: #### 2 5508, 14724, 91876, 89386, 07926 #### [facility] [address] [place] [address], [facility] Sodium [Moles/Vol] 136 mmol/L Normal 136-145 [facility] Comment on above: Order Comment: Yes: Add to Previous draw if able Performed By: #### 2 5508, 18894, 22235, 12928, 05998 #### [facility] [address] [place] [address], [facility] Urea nitrogen [Mass/Vol] 35 mg/dL High 7-25 [facility] Comment on above: Order Comment: Yes: Add to Previous draw if able Performed By: #### 2 5508, 66759, 74068, 92348, 84381 #### [facility] [address] [place] [address], [facility] LIVER BATTERYon 08-05-2020 Albumin [Mass/Vol] 3.2 g/dL Low 3.5-5.7 [facility] Comment on above: Performed By: #### 2 5508, 42927, 36118, 86605, 09241 #### [facility] [address] [place] [address], [facility] ALKALINE PHOSPH 84 IU/L Normal 34-104 [facility] Comment on above: Performed By: #### 2 5508, 73840, 90400, 47019, 30973 #### [facility] [address] [place] [address], [facility] ALT [Catalytic activity/Vol] 40 U/L Normal 7-52 [facility] Comment on above: Performed By: #### 2 5508, 97586, 23277, 82543, 65732 #### [facility] [address] [place] [id number], [facility] AST [Catalytic activity/Vol] 36 U/L Normal 13-39 [facility] Comment on above: Performed By: #### 2 5508, 98797, 62339, 13223, 71148 #### [facility] [address] [place] [address], [facility] Bilirubin [Mass/Vol] 0.9 mg/dL Normal 0.3-1.0 [facility] Comment on above: Performed By: #### 2 5508, 83510, 40617, 11805, 66663 #### [facility] [address] [place] [address], [facility] Bilirubin.direct [Mass/Vol] 0.3 mg/dL High 0.0-0.2 [facility] Comment on above: Performed By: #### 2 5508, 22997, 11296, 47302, 32514 #### [facility] [address] [place] [address], [facility] Protein [Mass/Vol] 5.9 g/dL Low 6.0-8.3 [facility] Comment on above: Performed By: #### 2 5508, 60822, 44051, 34156, 84300 #### [facility] [address] [place], [place] [id number] [place] [address] PORTABLE CHEST 1 VIEW 07-17 PORTABLE CHEST 1 VIEW [facility] Department of Radiology [address] [place] [id number] == Patient Name: VISHAL DUKE : 1960 Sex: M Age: Race: White Pt. Location: [id number] Patient Status: I Ordered Date: 08/05/2020 1:35:00 AM Completed Date: 08/05/2020 01:53 AM Requesting Provider: STEFF MARMOLEJO Attending Provider: YOJANA TRUJILLO Report Copy To: Signs & Symptoms: Chest Pain History: See Comments Comments: Evaluate for Infiltrates Exam: PORTABLE CHEST 1 VIEW == PORTABLE CHEST 1 VIEW 08/05/2020 1:53 AM CLINICAL INDICATIONS: Chest Pain TECHNOLOGIST COMMENTS: Patient with chest pain and SOB. QUESTION FOR THE RADIOLOGIST: Evaluate for Infiltrates PROTOCOL: AP(PA) view was obtained. COMPARISON: 08/03/2020 FINDINGS: Cardiomediastinal silhouette is unchanged. Pulmonary vasculature appears within normal limits. Stable opacification over the left midlung with slight increase in the left lower lung. There is likely a new right perihilar airspace infiltrates. Worsening interstitial prominence bilaterally. No pleural effusion. No pneumothorax. Sternotomy wires are again seen. IMPRESSION: Worsening bilateral airspace infiltrates compatible with multifocal pneumonia. Approved by:Eladia Ramírez08/05/2020 2:04 AM. I, Mauricio Koo,have reviewed the images and reports Electronically signed: Mauricio Koo. Transcribed by: [email or web address], User Resident: ELADIA CABRERA Electronically Signed by: MAURICIO KOO @ 08/05/2020 02:08 AM I personally read this/these film(s) with this resident Normal [facility] Comment on above: Order Comment: Yes: Add to Previous draw if able POTASSIUM URon 08-05-2020 Potassium [Moles/Vol] 61.0 mmol/L Normal [facility] Comment on above: Order Comment: Yes: Add to Previous draw if able Result Comment: Ther e are no established reference values for random urine specimens Performed By: #### 2 5508, 13630, 18381, 24066, 06757 #### [facility] [address] [place] [address], [facility] PROCALCITONINon 08-05-2020 PROCALCITONIN 0.54 ng/mL High 0.00-0.10 [facility] Comment on above: Order Comment: Yes: Add to Previous draw if able Result Comment: Susp ected Lower Respiratory Tract Infection: 0.1-0.25ng/mL- Low likelihood for bacterial infection;Antibiotics discouraged.* >0.25ng/mL- Increased likelihood bacterial infection;Antibiotics encouraged. Suspected Sepsis: Strongly consider initiating antibiotics in all unstable patients. 0.1-0.5ng/mL- Low likelihood for sepsis; Antibiotics discouraged.* >0.5ng/mL- Increased likelihood sepsis; Antibiotics encouraged. >2.0ng/mL- High risk of sepsis/septic shock; Antibiotics strongly encouraged. *Recommend retesting PCT within 6-12hours if clinically indicated and initial PCT<0.5ng/mL Performed By: #### 2 8858, 41910, 24544, 84138, 08982 #### [facility] [address] [place] [address], [facility] SODIUM URINE RANDOMon 2020 Sodium (U) [Moles/Vol] 54 mmol/L Normal [facility] Comment on above: Order Comment: Yes: Add to Previous draw if able Result Comment: Ther e are no established reference values for random urine specimens Performed By: #### 2 3278, 91602, 97875, 42791, 37610 #### [facility] [address] [place] [address], [facility] TACROLIMUSon 08-05-2020 Tacrolimus (Bld) [Mass/Vol] 11.2 ng/mL Normal 5.0-20.0 [facility] Comment on above: Order Comment: Unkno wn Result Comment: The [employer] Tacrolimus assay is a delayed one-step immunoassay for the quantitative determination of tacrolimus in human whole blood using the chemiluminescent microparticle immunoassay (CMIA) technology with flexible assay protocols, referred to as Chemiflex. Performed By: #### 2 5508, 58483, 96998, 84640, 29090 #### [facility] [address] [place] [address], [facility] TROPONIN-Ion 08-05-2020 Troponin I.cardiac [Mass/Vol] 39.61 ng/mL Critically high 0.00-0.04 [facility] Comment on above: Order Comment: Yes: Add to Previous draw if able Result Comment: M-SC EVIOUS CRITICAL RESULT REFERENCE RANGES: 0.00 - 0.04 ng/ml NORMAL 0.05 - 0.50 ng/ml INDETERMINATE > 0.50 ng/ml CONSISTENT WITH AN M.I. Performed By: #### 2 5508, 03949, 14435, 18153, 41849 #### [facility] [address] [place] [address], [facility] Troponin I.cardiac [Mass/Vol] 36.67 ng/mL Critically high 0.00-0.04 [facility] Comment on above: Order Comment: No: D o not add to previous draw Result Comment: M-SC EVIOUS CRITICAL RESULT REFERENCE RANGES: 0.00 - 0.04 ng/ml NORMAL 0.05 - 0.50 ng/ml INDETERMINATE > 0.50 ng/ml CONSISTENT WITH AN M.I. Performed By: #### 2 5508, 65549, 41038, 92549, 16110 #### [facility] [address] [place] [address], [facility] Troponin I.cardiac [Mass/Vol] 2.03 ng/mL Critically high 0.00-0.04 [facility] Comment on above: Order Comment: Yes: Add to Previous draw if able Result Comment: M-TR OPONIN INITIAL CRITICAL HIGH; RESPUN AND RETESTED M-CRITICAL RESULT(S) REVIEWED, CALLED TO AND READ BACK BY ROSA M COTA RN AT 0902 REFERENCE RANGES: 0.00 - 0.04 ng/ml NORMAL 0.05 - 0.50 ng/ml INDETERMINATE > 0.50 ng/ml CONSISTENT WITH AN M.I. Performed By: #### 2 5508, 41752, 36869, 25347, 74892 #### [facility] [address] Troponin I.cardiac [Mass/Vol] 0.03 ng/mL Normal 0.00-0.04 [facility] Comment on above: Order Comment: Yes: Add to Previous draw if able Result Comment: REFE RENCE RANGES: 0.00 - 0.04 ng/ml NORMAL 0.05 - 0.50 ng/ml INDETERMINATE > 0.50 ng/ml CONSISTENT WITH AN M.I. Performed By: #### 2 5508, 22567, 53757, 96960, 28998 #### [facility] [address] UFH HEPARIN ASSAYon 08-06-19 UNFRACTIONATED HEPARIN 0.37 IU/mL Normal 0.30-0.70 [facility] Comment on above: Result Comment: Axtell roxaban and Apixaban will interfere with the anti Xa assay used to monitor UFH and LMWH. Performed By: #### 3 0477 ####[facility] [facility].[address] UNFRACTIONATED HEPARIN 0.17 IU/mL Low 0.30-0.70 [facility] Comment on above: Result Comment: Axtell roxaban and Apixaban will interfere with the anti Xa assay used to monitor UFH and LMWH. Performed By: #### 6 1405 #### [facility] [address] [place] [address], [facility] COMP METABOLIC PANELon 08-04 Albumin [Mass/Vol] 3.1 g/dL Low 3.5-5.7 [facility] Comment on above: Order Comment: Yes: Add to Previous draw if able Performed By: #### 2 5508, 63941, 95606, 39328, 86595 #### [facility] [address] [place] [address], [facility] ALKALINE PHOSPH 86 IU/L Normal 34-104 [facility] Comment on above: Order Comment: Yes: Add to Previous draw if able Performed By: #### 2 5508, 01749, 34064, 87986, 37458 #### [facility] [address] [place] [address], [place] ALT [Catalytic activity/Vol] 47 U/L Normal 7-52 [facility] Comment on above: Order Comment: Yes: Add to Previous draw if able Performed By: #### 2 5508, 74342, 16168, 73403, 07503 #### [facility] [address] [place] [address], [facility] AST [Catalytic activity/Vol] 45 U/L High 13-39 [facility] Comment on above: Order Comment: Yes: Add to Previous draw if able Performed By: #### 2 5508, 14918, 21984, 13133, 17261 #### [facility] [address] [place] [address], [place] Bilirubin [Mass/Vol] 0.5 mg/dL Normal 0.3-1.0 [facility] Comment on above: Order Comment: Yes: Add to Previous draw if able Performed By: #### 2 5508, 13424, 92494, 83664, 22094 #### [facility] [address] [place] [address], [place] Calcium [Mass/Vol] 8.4 mg/dL Low 8.6-10.3 [facility] Comment on above: Order Comment: Yes: Add to Previous draw if able Performed By: #### 2 5508, 39069, 88953, 68589, 89610 #### [facility] [address] [place] [address], [place] Chloride [Moles/Vol] 102 mmol/L Normal 98-107 [facility] Comment on above: Order Comment: Yes: Add to Previous draw if able Performed By: #### 2 5508, 76782, 52124, 34665, 95881 #### [facility] [address] [place] [address], [place] CO2 [Moles/Vol] 24 mmol/L Normal 21-31 [facility] Comment on above: Order Comment: Yes: Add to Previous draw if able Performed By: #### 2 5508, 54101, 16800, 63987, 06204 #### [facility] [address] [place] [address], [place] Creatinine [Mass/Vol] 1.04 mg/dL Normal 0.70-1.30 [facility] Comment on above: Order Comment: Yes: Add to Previous draw if able Performed By: #### 2 5508, 22111, 51751, 89860, 75057 #### [facility] [address] [place] [address], [facility] GFR/1.73 sq M.predicted among blacks MDRD (S/P/Bld) [Vol rate/Area] mL/min/{1.73_m2} Normal >60 [facility] Comment on above: Order Comment: Yes: Add to Previous draw if able Performed By: #### 2 5508, 81128, 59362, 00593, 04907 #### [facility] [address] [place] [address], [place] GFR/1.73 sq M.predicted among non-blacks MDRD (S/P/Bld) [Vol rate/Area] mL/min/{1.73_m2} Normal >60 [facility] Comment on above: Order Comment: Yes: Add to Previous draw if able Performed By: #### 2 5508, 93515, 52513, 28711, 52961 #### [facility] [address] [place] [address], [place] Glucose [Mass/Vol] 196 mg/dL High 70-100 [facility] Comment on above: Order Comment: Yes: Add to Previous draw if able Performed By: #### 2 5508, 92113, 63462, 80543, 76419 #### [facility] [address] [place] [address], [facility] Potassium [Moles/Vol] 4.6 mmol/L Normal 3.5-5.1 [facility] Comment on above: Order Comment: Yes: Add to Previous draw if able Performed By: #### 2 5508, 90957, 25716, 17490, 52953 #### [facility] [address] [place] [id number], [facility] Protein [Mass/Vol] 5.8 g/dL Low 6.0-8.3 [facility] Comment on above: Order Comment: Yes: Add to Previous draw if able Performed By: #### 2 5508, 07877, 86247, 98610, 15396 #### [facility] [address] [place] [address], [facility] Sodium [Moles/Vol] 135 mmol/L Low 136-145 [facility] Comment on above: Order Comment: Yes: Add to Previous draw if able Performed By: #### 2 5508, 30998, 23965, 42536, 31085 #### [facility] [address] [place] [address], [facility] Urea nitrogen [Mass/Vol] 38 mg/dL High 7-25 [facility] Comment on above: Order Comment: Yes: Add to Previous draw if able Performed By: #### 2 5508, 19471, 50340, 66673, 67194 #### [facility] [address] [place] [id number], [place] CPKon 08-04-2020 CK [Catalytic activity/Vol] 80 U/L Normal 30-223 [facility] Comment on above: Performed By: #### 2 5508, 73435, 19392, 52919, 11767 #### [facility] [address] [place] [address], [place] LDH BLOODon 08-04-2020 LDH 569 Units/L High 140-271 [facility] Comment on above: Performed By: #### 2 5508, 56567, 62983, 80338, 73147 #### [facility] [address] [facility] [place] [place] [address], [facility] MAGNESIUM BLOODon 08-04-2020 Magnesium [Mass/Vol] 2.3 mg/dL Normal 1.9-2.7 [facility] Comment on above: Performed By: #### 2 5508, 46561, 54336, 14172, 01480 #### [facility] [address] [facility]. [address] TACROLIMUSon 08-04-2020 Tacrolimus (Bld) [Mass/Vol] 17.4 ng/mL Normal 5.0-20.0 [facility] Comment on above: Order Comment: Yes: Add to Previous draw if able Result Comment: The [employer] Tacrolimus assay is a delayed one-step immunoassay for the quantitative determination of tacrolimus in human whole blood using the chemiluminescent microparticle immunoassay (CMIA) technology with flexible assay protocols, referred to as Chemiflex. Performed By: #### 2 5508, 86965, 37366, 88877, 78865 #### [facility] [address] TROPONIN-Ion 08-04-2020 Troponin I.cardiac [Mass/Vol] 0.01 ng/mL Normal 0.00-0.04 [facility] Comment on above: Result Comment: REFE RENCE RANGES: 0.00 - 0.04 ng/ml NORMAL 0.05 - 0.50 ng/ml INDETERMINATE > 0.50 ng/ml CONSISTENT WITH AN M.I. Performed By: #### 2 5508, 18689, 84916, 85504, 17812 #### [facility] [address] *SARS-CoV-2 COVID-19on 08-03 SARS-CoV-2 (COVID-19) RNA ADELINE+probe Ql (Unsp spec) Detected Critically abnormal Not Detected [facility] Comment on above: Result Comment: Call ed Lara Reid on 08-03 at 1020. Performed By: #### 2 5508, 92902, 88936, 90177, 33478 #### [facility] [address] [place] [address], [facility] BASIC METABOLIC PANELon 07-16 Calcium [Mass/Vol] 8.4 mg/dL Low 8.6-10.3 [facility] Comment on above: Order Comment: No: D o not add to previous draw Pt in bath room askme to come back Performed By: #### 3 5200 #### [facility] [address] [place] [address], [facility] Chloride [Moles/Vol] 97 mmol/L Low 98-107 [facility] Comment on above: Order Comment: No: D o not add to previous draw Pt in bath room askme to come back Performed By: #### 3 5200 #### [facility] [address] [place] [address], [facility] CO2 [Moles/Vol] 22 mmol/L Normal 21-31 [facility] Comment on above: Order Comment: No: D o not add to previous draw Pt in bath room askme to come back Performed By: #### 3 5200 #### [facility] [address] [place] [address], [facility] Creatinine [Mass/Vol] 0.90 mg/dL Normal 0.70-1.30 [facility] Comment on above: Order Comment: No: D o not add to previous draw Pt in bath room askme to come back Performed By: #### 3 5200 #### [facility] [address] [place] [address], [facility] GFR/1.73 sq M.predicted among blacks MDRD (S/P/Bld) [Vol rate/Area] mL/min/{1.73_m2} Normal >60 [facility] Comment on above: Order Comment: No: D o not add to previous draw Pt in bath room askme to come back Performed By: #### 3 5200 #### [facility] [address] [place] [address], [facility] GFR/1.73 sq M.predicted among non-blacks MDRD (S/P/Bld) [Vol rate/Area] mL/min/{1.73_m2} Normal >60 [facility] Comment on above: Order Comment: No: D o not add to previous draw Pt in bath room askme to come back Performed By: #### 3 5200 #### [facility] [address] [place] [address], [facility] Glucose [Mass/Vol] 167 mg/dL High 70-100 [facility] Comment on above: Order Comment: No: D o not add to previous draw Pt in bath room askme to come back Performed By: #### 3 5200 #### [facility] [address] [place] [address], [facility] Potassium [Moles/Vol] 4.4 mmol/L Normal 3.5-5.1 [facility] Comment on above: Order Comment: No: D o not add to previous draw Pt in bath room askme to come back Performed By: #### 3 5200 #### [facility] [address] [place] [address], [place] Sodium [Moles/Vol] 131 mmol/L Low 136-145 [facility] Comment on above: Order Comment: No: D o not add to previous draw Pt in bath room askme to come back Performed By: #### 3 5200 #### [facility] [address] [place] [address], [place] Urea nitrogen [Mass/Vol] 22 mg/dL Normal 7-25 [facility] Comment on above: Order Comment: No: D o not add to previous draw Pt in bath room askme to come back Performed By: #### 3 5200 #### [facility] [address] [place] [address], [place] CBC W/DIFFon 08-03-2020 ABS IMM GRANS 0.1 10*3/uL Normal 0.0-0.2 [facility] Comment on above: Order Comment: No: D o not add to previous draw Performed By: #### 6 1405 #### [facility] [address] [place] [address], [facility] ABS NEUTROPHILS 4.8 10*3/uL Normal 1.6-7.6 [facility] Comment on above: Order Comment: No: D o not add to previous draw Performed By: #### 6 1405 #### [facility] [address] [facility] [place] [address], [facility] Basophils (Bld) [#/Vol] 0.0 10*3/uL Normal 0.0-0.2 [facility] Comment on above: Order Comment: No: D o not add to previous draw Performed By: #### 6 1405 #### [facility] [address] [place] [address], [facility] Basophils/100 WBC (Bld) 0.4 % Normal 0.0-1.0 [facility] Comment on above: Order Comment: No: D o not add to previous draw Performed By: #### 6 1405 #### [facility] [address] [place] [address], [facility] Eosinophils (Bld) [#/Vol] 0.0 10*3/uL Normal 0.0-0.5 [facility] Comment on above: Order Comment: No: D o not add to previous draw Performed By: #### 6 1405 #### [facility] [address] [place] [address], [facility] Eosinophils/100 WBC (Bld) 0.0 % Normal 0.0-6.0 [facility] Comment on above: Order Comment: No: D o not add to previous draw Performed By: #### 6 1405 #### [facility] [address] Erythrocyte distribution width (RBC) [Ratio] 13.6 % Normal 11.5-15.0 [facility] Comment on above: Order Comment: No: D o not add to previous draw Performed By: #### 6 1405 #### [facility] [address] [place] [address], [facility] Hematocrit (Bld) [Volume fraction] 45.6 % Normal 39.0-50.0 [facility] Comment on above: Order Comment: No: D o not add to previous draw Performed By: #### 6 1405 #### [facility] [address] [place] [address], [facility] Hemoglobin (Bld) [Mass/Vol] 15.9 g/dL Normal 13.0-17.0 [facility] Comment on above: Order Comment: No: D o not add to previous draw Performed By: #### 6 1405 #### [facility] [address] [facility] [place] [place] [address], [facility] IMMATURE GRANS 0.9 % Normal 0.0-1.0 [facility] Comment on above: Order Comment: No: D o not add to previous draw Performed By: #### 6 1405 #### [facility] [address] [place] [address], [facility] Lymphocytes (Bld) [#/Vol] 0.4 10*3/uL Low 1.2-4.0 [facility] Comment on above: Order Comment: No: D o not add to previous draw Performed By: #### 6 1405 #### [facility] [address] [place] [address], [facility] Lymphocytes/100 WBC (Bld) 7.1 % Low 20.0-45.0 [facility] Comment on above: Order Comment: No: D o not add to previous draw Performed By: #### 6 1405 #### [facility] [address] [place] [address], [facility] MCH (RBC) [Entitic mass] 29.5 pg Normal 27.0-33.0 [facility] Comment on above: Order Comment: No: D o not add to previous draw Performed By: #### 6 1405 #### [facility] [address] [place] [address], [facility] MCHC (RBC) [Mass/Vol] 34.9 g/dL Normal 32.0-35.0 [facility] Comment on above: Order Comment: No: D o not add to previous draw Performed By: #### 6 1405 #### [facility] [address] [place] [id number], [facility] MCV (RBC) [Entitic vol] 84.6 fL Normal 82.0-98.0 [facility] Comment on above: Order Comment: No: D o not add to previous draw Performed By: #### 6 1405 #### [facility] [address] [place] [address], [facility] Monocytes (Bld) [#/Vol] 0.2 10*3/uL Normal 0.1-1.0 [facility] Comment on above: Order Comment: No: D o not add to previous draw Performed By: #### 6 1405 #### [facility] [address] [place] [address], [facility] MONOS 4.2 % Low 5.0-12.0 [facility] Comment on above: Order Comment: No: D o not add to previous draw Performed By: #### 6 1405 #### [facility] [address] [place] [address], [facility] Neutrophils/100 WBC (Bld) 87.4 % High 40.0-72.0 [facility] Comment on above: Order Comment: No: D o not add to previous draw Performed By: #### 6 1405 #### [facility] [address] [place] [id number], [facility] Nucleated RBC/100 WBC (Bld) [Ratio] 0 % Normal 0-0 [facility] Comment on above: Order Comment: No: D o not add to previous draw Performed By: #### 6 1405 #### [facility] [address] [facility] [address], [facility] PLAT CNT 286 10*3/uL Normal 150-400 [facility] Comment on above: Order Comment: No: D o not add to previous draw Performed By: #### 6 1405 #### [facility] [address] [place] [address], [facility] RBC (Bld) [#/Vol] 5.39 10*6/uL Normal 4.20-5.70 [facility] Comment on above: Order Comment: No: D o not add to previous draw Performed By: #### 6 1405 #### [facility] [address] [place] [address], [facility] WBC (Bld) [#/Vol] 5.47 10*3/uL Normal 4.00-10.60 [facility] Comment on above: Order Comment: No: D o not add to previous draw Performed By: #### 6 1405 #### [facility] [address] CPKon 08-03-2020 CK [Catalytic activity/Vol] 168 U/L Normal 30-223 [facility] Comment on above: Order Comment: No: D o not add to previous draw Pt in bath room askme to come back Performed By: #### 3 5200 #### [facility] [address] D DIMER TESTon 08-03-2020 D-DIMER TEST 5.09 mcg/mL FEU High 0.27-0.49 [facility] Comment on above: Order Comment: No: D o not add to previous draw Result Comment: D-Di priscilla values of less than 0.50 ug/ml (FEU) are considered to be a negative predictor of thrombosis. However, the D-Dimer result should be used in conjunction with pretest probability and should not be used alone to diagnose a thrombotic event. D-DIMER RESULT REPEATED AND CONFIRMED Performed By: #### 5 3629 ####[facility] [place] [address], [facility] FERRITINon 08-03-2020 Ferritin [Mass/Vol] 1079 ng/mL High 24-336 [facility] Comment on above: Order Comment: No: D o not add to previous draw Pt in bath room askme to come back Performed By: #### 3 5200 #### [facility] [address] [place] [address], [facility] LDH BLOODon 08-03-2020 LDH 623 Units/L High 140-271 [facility] Comment on above: Order Comment: No: D o not add to previous draw Pt in bath room askme to come back Performed By: #### 3 5200 #### [facility] [address] [place] [address], [facility] LIVER BATTERYon 08-03-2020 Albumin [Mass/Vol] 3.6 g/dL Normal 3.5-5.7 [facility] Comment on above: Order Comment: Yes: Add to Previous draw if able Performed By: #### 2 5508, 10786, 92041, 19074, 69452 #### [facility] [address] ALKALINE PHOSPH 91 IU/L Normal 34-104 [facility] Comment on above: Order Comment: Yes: Add to Previous draw if able Performed By: #### 2 5508, 46912, 11165, 71105, 26053 #### [facility] [address] [place] [address], [facility] ALT [Catalytic activity/Vol] 34 U/L Normal 7-52 [facility] Comment on above: Order Comment: Yes: Add to Previous draw if able Performed By: #### 2 5508, 58361, 43147, 10425, 80149 #### [facility] [address] AST [Catalytic activity/Vol] 40 U/L High 13-39 [facility] Comment on above: Order Comment: Yes: Add to Previous draw if able Performed By: #### 2 5508, 51561, 32845, 39990, 36820 #### [facility] [address] [place] [address], [facility] Bilirubin [Mass/Vol] 0.7 mg/dL Normal 0.3-1.0 [facility] Comment on above: Order Comment: Yes: Add to Previous draw if able Performed By: #### 2 5508, 25364, 43595, 99674, 98191 #### [facility] [address] [place] [address], [facility] Bilirubin.direct [Mass/Vol] 0.1 mg/dL Normal 0.0-0.2 [facility] Comment on above: Order Comment: Yes: Add to Previous draw if able Performed By: #### 2 5508, 42769, 80961, 99211, 95847 #### [facility] [address] [place] [address], [facility] Protein [Mass/Vol] 6.3 g/dL Normal 6.0-8.3 [facility] Comment on above: Order Comment: Yes: Add to Previous draw if able Performed By: #### 2 5508, 14246, 61787, 56176, 08328 #### [facility] [address] [place] [id number], [place] MAGNESIUM BLOODon 08-03-2020 Magnesium [Mass/Vol] 2.3 mg/dL Normal 1.9-2.7 [facility] Comment on above: Order Comment: No: D o not add to previous draw Pt in bath room askme to come back Performed By: #### 3 9520 #### [facility] [address] [place] [address], [facility] PHOSPHORUS BLOODon Phosphate [Mass/Vol] 3.6 mg/dL Normal 2.5-5.0 [facility] Comment on above: Order Comment: No: D o not add to previous draw Pt in bath room askme to come back Performed By: #### 3 5200 #### [address] PORTABLE CHEST 1 VIEWon 07-16 PORTABLE CHEST 1 VIEW [facility] Department of Radiology [address] [place] [id number] == Patient Name: VISHAL DUKE : 1960 Sex: M Age: Race: White Pt. Location: [id number] Patient Status: I Ordered Date: 08/03/2020 8:00:00 AM Completed Date: 08/03/2020 07:32 AM Requesting Provider: WILLARD DIMAS Attending Provider: PHANI SAPP Report Copy To: Signs & Symptoms: Shortness of Breath History: Comments: evaluate for Pneumonia Exam: PORTABLE CHEST 1 VIEW == PORTABLE CHEST 1 VIEW 08/03/2020 7:32 AM CLINICAL INDICATIONS: Shortness of Breath TECHNOLOGIST COMMENTS: sob covid + QUESTION FOR THE RADIOLOGIST: evaluate for Pneumonia PROTOCOL: AP(PA) view was obtained. COMPARISON: August 16, 2017 FINDINGS: Airspace disease is noted in the left midlung field. No pleural effusion or pneumothorax is identified. The heart appears normal in size, sternotomy wires remain. IMPRESSION: Airspace disease in left midlung field consistent with pneumonia. Electronically signed: Dariela Vincent. Transcribed by: [email or web address], User Resident: Electronically Signed by: DARIELA VINCENT @ 08/03/2020 07:52 AM Normal [facility] Comment on above: Order Comment: No: D o not add to previous draw CV'D BY IMM LAB AT 1240 PROCALCITONINon 08-03-2020 PROCALCITONIN 0.31 ng/mL High 0.00-0.10 [facility] Comment on above: Order Comment: No: D o not add to previous draw Result Comment: Susp ected Lower Respiratory Tract Infection: 0.1-0.25ng/mL- Low likelihood for bacterial infection;Antibiotics discouraged.* >0.25ng/mL- Increased likelihood bacterial infection;Antibiotics encouraged. Suspected Sepsis: Strongly consider initiating antibiotics in all unstable patients. 0.1-0.5ng/mL- Low likelihood for sepsis; Antibiotics discouraged.* >0.5ng/mL- Increased likelihood sepsis; Antibiotics encouraged. >2.0ng/mL- High risk of sepsis/septic shock; Antibiotics strongly encouraged. *Recommend retesting PCT within 6-12hours if clinically indicated and initial PCT<0.5ng/mL Performed By: #### 2 1678, 98672, 38186, 05841, 04185 #### [facility] [address] [place] [address], [facility] TACROLIMUSon 08-03-2020 Tacrolimus (Bld) [Mass/Vol] 24.9 ng/mL High 5.0-20.0 [facility] Comment on above: Order Comment: Yes: Add to Previous draw if able Result Comment: The [employer] Tacrolimus assay is a delayed one-step immunoassay for the quantitative determination of tacrolimus in human whole blood using the chemiluminescent microparticle immunoassay (CMIA) technology with flexible assay protocols, referred to as Chemiflex. Performed By: #### 2 5508, 98188, 74732, 36349, 27356 #### [facility] [address] [place] [address], [facility] TROPONIN-Ion 08-03-2020 Troponin I.cardiac [Mass/Vol] 0.01 ng/mL Normal 0.00-0.04 [facility] Comment on above: Order Comment: No: D o not add to previous draw Pt in bath room askme to come back Result Comment: REFE RENCE RANGES: 0.00 - 0.04 ng/ml NORMAL 0.05 - 0.50 ng/ml INDETERMINATE > 0.50 ng/ml CONSISTENT WITH AN M.I. Performed By: #### 3 5200 #### [facility] [address] [facility] [place] [address], [facility] URINALYSIS REFLEXon 08-04-19 Appearance (U) CLEAR Normal CLEAR [facility] Comment on above: Order Comment: No: D o not add to previous draw CV'D BY IMM LAB AT 1240 Performed By: #### 6 1405 #### [facility] [address] [place] [address], [facility] Bilirubin Ql (U) Negative Normal NEGATIVE [facility] Comment on above: Order Comment: No: D o not add to previous draw CV'D BY IMM LAB AT 1240 Performed By: #### 6 1405 #### [facility] [address] [place] [address], [facility] Color (U) YELLOW Normal YELLOW [facility] Comment on above: Order Comment: No: D o not add to previous draw CV'D BY IMM LAB AT 1240 Performed By: #### 6 1405 #### [facility] [address] [facility] [place] [address], [place] EPIS NONE SEEN Normal FEW,OCC,NONE SEEN [facility] Comment on above: Order Comment: No: D o not add to previous draw CV'D BY IMM LAB AT 1240 Performed By: #### 6 1405 #### [facility] [address] [place] [address], [place] Glucose Ql (U) Negative Normal NEGATIVE [facility] Comment on above: Order Comment: No: D o not add to previous draw CV'D BY IMM LAB AT 1240 Performed By: #### 6 1405 #### [facility] [address] [place] [address], [place] Hemoglobin Ql (U) TRACE, RESULTS CHECKED Abnormal NEGATI VE [facility] Comment on above: Order Comment: No: D o not add to previous draw CV'D BY IMM LAB AT [employer] Performed By: #### 6 1405 #### [facility] [address] [place] [address], [place] KETONE Negative Normal NEGATIVE [facility] Comment on above: Order Comment: No: D o not add to previous draw CV'D BY IMM LAB AT 1240 Performed By: #### 6 1405 #### [facility] [address] [place] [address], [place] LEUK MARIA A Negative Normal NEGATIVE [facility] Comment on above: Order Comment: No: D o not add to previous draw CV'D BY IMM LAB AT 1240 Performed By: #### 6 1405 #### [facility] [address] [place] [address], [place] Nitrite Ql (U) Negative Normal NEGATIVE [facility] Comment on above: Order Comment: No: D o not add to previous draw CV'D BY IMM LAB AT 1240 Performed By: #### 6 1405 #### [facility] [address] [place] [address], [place] pH (U) 6.0 [pH] Normal 5.0-8.0 [facility] Comment on above: Order Comment: No: D o not add to previous draw CV'D BY IMM LAB AT 1240 Performed By: #### 6 1405 #### [facility] [address] [place] [address], [facility] Protein Ql (U) Negative Normal NEGATIVE [facility] Comment on above: Order Comment: No: D o not add to previous draw CV'D BY IMM LAB AT 1240 Performed By: #### 6 1405 #### [facility] [address] [place] [address], [facility] RBC 3-5 Abnormal NONE SEEN [facility] Comment on above: Order Comment: No: D o not add to previous draw CV'D BY IMM LAB AT 1240 Performed By: #### 6 1405 #### [facility] [address] [place] [address], [facility] SPEC GRAV 1.017 Normal 1.015-1.020 [facility] Comment on above: Order Comment: No: D o not add to previous draw CV'D BY IMM LAB AT 1240 Performed By: #### 6 1405 #### [facility] [address] [place] [address], [facility] WBC UA 0-2 Abnormal NONE SEEN [facility] Comment on above: Order Comment: No: D o not add to previous draw CV'D BY IMM LAB AT 1240 Performed By: #### 6 1405 #### [facility] [address] [facility] [place], [place] [address] Vital Signs Date Time Vital Sign Value Performing Clinician Faci lity 01-17-2022 11:53-0400 Blood Pressure Location Reji BROWER [facility] 01-17-2022 11:53-0400 Diastolic blood pressure 81 mm[Hg] Reji BROWER [facility] 01-17-2022 11:53-0400 Heart rate 63 /min Reji BROWER [facility] 01-17-2022 11:53-0400 Respiratory rate 18 /min Reji BROWER [facility] 01-17-2022 11:53-0400 Systolic blood pressure 129 mm[Hg] Reji BROWER [facility] 04-23-2021 17:40-0500 Diastolic blood pressure 70 mm[Hg] Rosa M Gonzales Work Phone: [facility] 250 DO Work Phone: 04-23-2021 17:40-0500 Systolic blood pressure 138 mm[Hg] Rosa M Gonzales Work Phone: [facility] DO Work Phone: 04-23-2021 15:22-0500 Body height 180.34 cm Rosa M Gonzales Work Phone: [facility] 250 DO Work Phone: 04-23-2021 15:22-0500 Body mass index (BMI) [Ratio] 29.57 kg/m2 Rosa M Gonzales Work Phone: [facility] 250 DO Work Phone: 04-23-2021 15:22-0500 Body surface area Derived from formula 2.16 m2 Rosa M Gonzales Work Phone: [facility] 250 DO Work Phone: 04-23-2021 15:22-0500 Body weight 96.16 kg Rosa M Gonzales Work Phone: [facility] 250 DO Work Phone: 04-23-2021 15:22-0500 Diastolic blood pressure 77 mm[Hg] Rosa M Elian Work Phone: [facility] DO Work Phone: 04-23-2021 15:22-0500 Heart rate 61 /min Rosa M Thorntonhman Work Phone: [facility] 250 DO Work Phone: 04-23-2021 15:22-0500 Systolic blood pressure 142 mm[Hg] Rosa M Farrell Janet Work Phone: [facility] DO Work Phone: Encounters Encounter Date Encounter Type Care Provider Facility Start: 03-28-2023 ambulatory PETEY Beck [facility] Start: 02-09-2023 End: 02-09-2023 ambulatory [facility] Start: 02-02-2023 ambulatory Xochilt Graham Facility:[facility] Start: 01-24-2023 End: 01-25-2023 Evaluation and management of inpatient [facility] Start: 01-06-2023 End: 01-07-2023 ambulatory [facility] Start: 12-22-2022 End: 12-22-2022 ambulatory [facility] Start: 12-05-2022 End: [facility]: 11-15-2022 End: 11-16-2022 ambulatory SHAUN CASTANON [facility] Start: 10-26-2022 End: 10-26-2022 ambulatory TEAGAN VILLANUEVA [facility] Start: 10-24-2022 End: 10-24-2022 ambulatory MADIE BROWN [facility] Start: 09-27-2022 End: 09-27-2022 ambulatory PETEY ZHANG [facility] Start: 09-06-2022 End: 09-07-2022 ambulatory [facility] Start: 09-01-2022 End: 09-02-2022 ambulatory [facility] Start: 08-19-2022 End: 08-20-2022 ambulatory [facility] Start: 08-18-2022 End: 08-19-[address] DOCTOR MEYER Facility:[facility] Start: 07-29-2022 End: 07-29-2022 ambulatory [facility] Start: 07-19-2022 End: 07-20-[address] DOCTOR EMYER Facility:[facility] Start: 06-16-2022 End: 06-16-2022 ambulatory [facility] Start: 06-01-2022 End: 06-02-[address] DOCTOR MEYER Facility:[facility] Start: 05-30-2022 End: 05-31-[address] AIME VILLASENOR Facility:[facility] Start: 05-18-2022 End: 05-18-2022 ambulatory FEDERICO CHESTER [facility] Start: 05-17-2022 End: 05-17-2022 ambulatory TEAGAN VILLANUEVA [facility] Start: 05-03-2022 End: 05-04-[address] DOCTOR MEYER Facility:[facility] Start: 04-14-2022 End: 04-15-[address] DOCTOR MEYER Facility:[facility] Start: 04-07-2022 ambulatory [facility] Start: 03-25-2022 End: 03-26-[address] ROSA M GOZNALES Facility:[facility] Start: 02-24-2022 End: 02-25-[address] DOCTOR MEYER Facility:[facility] Start: 01-17-2022 End: 01-17-2022 Patient encounter procedure Reji BROWER [facility] Start: 09-28-2021 End: 09-29-[address] FEDERICO CHESTER Facility:[facility] Start: 05-15-2021 End: 06-07-2021 ambulatory ROSA M GONZALES Facility:[facility] Start: 04-23-2021 Office outpatient vi sit 25 minutes Rosa M Gonzales Work Phone: [facility] 250 DO Work Phone: Start: 12-02-2020 End: 12-04-2020 Evaluation and management of inpatient YONAS HERRERA Facility:[facility] Start: 12-01-2020 End: 12-01-2020 Emergency department patient visit REFERRED SELF Facility:[facility] Start: 10-29-2020 End: 10-30-2020 ambulatory ROSA M JANET Facility:[facility] Start: 08-02-2020 End: 08-19-2020 Evaluation and management of inpatient JUAN FERREIRA Facility:[facility] Procedures Date Procedure Procedure Detail Performing Clinician Start: 12-03-2020 INTRODUCTION OF OTHE R GAS INTO RESP TRACT, VIA OPENING YONAS HERRERA Start: 08-03-2020 INTRODUCE REMDESIVIR IN PERIP VEIN, PERC, NEW TECH 5 YOJANA N HORANI Start: 08-03-2020 INTRODUCTION OF OTHE R GAS INTO RESP TRACT, VIA OPENING YOJANA N HORANI Start: 01-01-2018 Transplant of kidney Epifanio BROWER Comment on above: Pt has three kidneys Bilateral vasectomy Reji BROWER Cardiac catheterization Anne Gonzales Work Phone: Coronary artery bypa ss graft Rosa M Gonzales Work Phone: Coronary artery bypa ss grafts x 3 Reji BROWER Creation of graft fi stula for dialysis Rosa M Gonzales Work Phone: Extraction of wisdom tooth J durga Gonzales Work Phone: History of renal transplant Renal transplant recipient Rosa M Gonzales Work Phone: History of renal transplant Kidney transplanted( Confirmed ) Reji BROWER Insertion of pacemak er pulse generator Rosa M Gonzales Work Phone: Placement of stent i n cardiac conduit Reji BROWER Total colonoscopy Rosa M Jami Gonzales Work Phone: Transplant of kidney Devikaalfie jami Gonzales Work Phone: Immunizations Immunization Date Immunization Notes Care Provider Maribel moore 02-01-2021 Seasonal, quadrivale nt, recombinant, injectable influenza vaccine, preservative free Rosa M Gonzales Work Phone: [facility] 250 DO Work Phone: 01-06-2021 Moderna COVID-19 Vac cine 100 MCG/0.5ML Intramuscular Suspension Rosa M Jami Gonzales Work Phone: [place] [address] DO Work Phone: 07-10-2020 Moderna COVID-19 Vac cine 100 MCG/0.5ML Intramuscular Suspension Rosa M Jami Gonzales Work Phone: [place] [address] DO Work Phone: 06-12-2020 Moderna COVID-19 Vac cine 100 MCG/0.5ML Intramuscular Suspension Rosa M Jami Gonzales Work Phone: [place] [address] DO Work Phone: 01-27-2020 influenza, seasonal, injectable Rosa M Gonzales Work Phone: [facility] 250 DO Work Phone: 01-16-2020 influenza virus vacc ine, unspecified formulation Rosa M Gonzales Work Phone: [facility] 250 DO Work Phone: 02-05-2019 Seasonal, quadrivale nt, recombinant, injectable influenza vaccine, preservative free Rosa M Gonzales Work Phone: [facility] 250 DO Work Phone: 05-11-2018 influenza, injectabl e, quadrivalent, preservative free Rosa M R Janet Work Phone: [place] [address] DO Work Phone: 02-16-2018 influenza, injectabl e, quadrivalent, preservative free Rosa M R Janet Work Phone: [place] [address] DO Work Phone: 06-08-2017 influenza, injectabl e, quadrivalent, preservative free Rosa M R Janet Work Phone: [place] [address] DO Work Phone: 12-16-2016 influenza, injectabl e, quadrivalent, contains preservative Rosa M R Janet Work Phone: [place] [address] DO Work Phone: 01-28-2015 influenza, seasonal, injectable Rosa M R Janet Work Phone: [place] [address] DO Work Phone: 04-27-2012 influenza virus vacc ine, whole virus Rosa M Gonzales Work Phone: [place] [address] DO Work Phone: Payers Date Payer Category Payer Unknown [id number] 2.16.8 [id number] 1960 Unknown [id number] 2.16.8 [id number] 1960 Unknown [id number] 2.16.8 [id number] 1960 Unknown [id number] 2.16.8 [id number] 1960 Unknown [id number] 2.16.8 [id number] 1960 Unknown [id number] 2.16.84 0.1.587561.3.579.2.593 1960 Unknown [id number] 2.16.84 0.1.056935.3.579.2.593 1960 Unknown [id number] 2.16.84 0.1.297169.3.579.2.593 1960 Unknown [id number] 2.16.84 0.1.392067.3.579.2.593 1960 Unknown [id number] 2.16.84 0.1.023200.3.579.2.593 1960 Unknown [id number] 2.16.84 0.1.201977.3.579.2.593 1960 Unknown [id number] 2.16.84 0.1.650326.3.579.2.593 1960 Unknown [id number] 2.16.84 0.1.688246.3.579.2.593 1960 Unknown [id number] 2.16.84 0.1.544543.3.579.2.593 1959 Medicare [id number] 1959 Private Health Insurance [id number] Unknown Social History Date Type Detail Facility No alcohol use No alcohol use [facility] 250 DO Work Phone: Comment on above: 1-2 cups of coffee d aily.; Quit in 2008; Start: 01-01-2020 Tobacco smoking status Ex-smoker (fi nding) [facility] Sex Assigned At Male [facility] Functional Status Date Assessment Result Facility 01-17-2022 Functional Status N/A [facility] Clinical Notes 08-20-2020 to 03-29-2023 Note Date & Type Note Facility 03-29-2023 Note Patient's tac level of 9.[address] Basurto and he just wants to watch it no medication change. Maria G Mayberry, TATO [facility] 03-28-2023 Note 03/28/23 Chief Complaint Patient presents with Kidney Follow-up Patient have no concerns PCP: Rosa M Gonzales MD Txp Referring: Preferred Pharmacy: [id number] - [place], [place] - [address] [facility] [address] [place] [address] Subjective Visit Vitals BP 111/61 Pulse 60 Wt 90.3 kg (199 lb) BMI 27.75 kg/m??? Smoking Status Former BSA 2.13 m??? No Known Allergies Medication Documentation Review Audit Reviewed by Tim Foy MA (Traffic Signal Repairer) on 03/28/23 at 0912 Medication Order Taking? Sig Documenting Provider Last Dose Status albuterol (ProAir HFA) 90 mcg/actuation inhaler [id number] Yes Inhale 2 puffs every 4 (four) hours if needed for wheezing or shortness of breath. Laney Busch MD Taking Active aspirin 81 mg EC tablet [id number] Yes Take 81 mg by mouth in the morning. Historical Provider, Taking Active atorvastatin (Lipitor) 80 mg tablet [id number] Yes Take 1 tablet (80 mg) by mouth at bedtime. Federico Chester MD Taking Active clopidogrel (Plavix) 75 mg tablet [id number] Yes Take 1 tablet (75 mg) by mouth in the morning. Federico Chester MD Taking Active empagliflozin (Jardiance) 10 mg [id number] Yes Take 1 tablet (10 mg) by mouth once daily as directed. Federico Chester MD Taking Active esomeprazole (NexIUM) [address] capsule [id number] Yes Take 1 capsule (40 mg) by mouth before breakfast. Do not open capsule. Federico Chester MD Taking Active famotidine (Pepcid) 20 mg tablet [id number] Yes Take 20 mg by mouth in the morning and at bedtime. Historical ProviderMD Taking Active isosorbide mononitrate ER (Imdur) 60 mg 24 hr tablet [id number] Yes Take 1 tablet (60 mg) by mouth in the morning. Do not crush or chew. Federico Chester MD Taking Active lisinopril 5 mg tablet [id number] Yes Take 1 tablet (5 mg) by mouth in the morning. Federico Chester MD Taking Active magnesium oxide (Mag-Ox) 400 mg tablet [id number] Yes 400 mg in the morning. Historical Provider, Taking Active methocarbamol (Robaxin) 500 mg tablet [id number] Take 1 tablet (500 mg) by mouth if needed in the morning, at noon, and at bedtime for muscle spasms for up to 5 days. Patient not taking: Reported on 02/09/2023 Amelia Olson MD 01/30/23 2359 metoprolol succinate XL (Toprol-XL) 200 mg 24 hr tablet Yes Take 1 tablet (200 mg) by mouth once daily as directed. Do not crush or chew. Federico Chester MD Taking Active mycophenolate (Myfortic) 180 mg EC tablet [id number] Yes Take 3 tablets (540 mg) by mouth in the morning and at bedtime. Bobby Agee MD Taking Active nitroglycerin (Nitrostat) 0.4 mg SL tablet [id number] Yes Place 0.4 mg under the tongue every 5 (five) minutes if needed for chest pain. Historical Provider, Taking Active predniSONE (Deltasone) 5 mg tablet [id number] Yes Take 5 mg by mouth every other day. Historical Provider, Taking Active ranolazine (Ranexa) 500 mg 12 hr tablet Yes Take 1 tablet (500 mg) by mouth in the morning and at bedtime. Do not crush, chew, or split. Federico Chester MD Taking Active tacrolimus (Prograf) 0.5 mg capsule [id number] Yes tacrolimus 0.5 mg capsule, immediate-release TAKE 1 CAPSULE BY MOUTH TWICE DAILY Phoebe Culver MD Taking Active Immunization History Administered Date(s) Administered Unspecified Sars-Cov-2 Vaccination 12/30/2021 Patient Active Problem List Diagnosis Aftercare following organ transplant Kidney replaced by transplant Electrolyte abnormality Immunosuppression (CMS/HCC) Polycystic kidney disease, autosomal dominant Elevated hemoglobin (CMS/HCC) Other abnormality of red blood cells Post-COVID chronic dyspnea Chronic systolic congestive heart failure ([facility]/HCC) Active rickets Acute bronchitis Acute non-ST elevation myocardial infarction (NSTEMI) ([facility]) Age-related nuclear cataract of left eye 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 Coronary artery disease involving lower [place] coronary artery of [place] heart with unstable angina pectoris ([facility]/HCC) Gastroesophageal reflux disease Hypertension End-stage renal disease ([facility]) Coronary atherosclerosis Hyperkalemia History of kidney disease Gouty arthropathy Hypervitaminosis A Increased infection risk status post immunosuppressive therapy Lower urinary tract symptoms due to benign prostatic hyperplasia Male hypogonadism Hyperlipidemia Microscopic hematuria Mixed hyperlipidemia Myocardial infarction ([facility]/HCC) Neuropathy Nocturia Renal failure Pyelonephritis Pseudophakia PCO (posterior capsular opacification), right Stage 4 chronic kidney disease ([facility]/HCC) Stage 3 chronic kidney disease ([facility]) Upper respiratory infection Status post insertion of drug-eluting stent into left anterior descending (LAD) artery for coronary artery disease Ventricular tachycardia ([facility] (more content not included)... [facility] 03-08-2023 Note New standing lab ord er placed in intraoffice mail today to go out> [facility] 03-08-2023 Note New standing lab ord er placed in today's outgoing mail. Following call from clinic [facility] that pt is @ [facility] for lab draws, faxed to [phone] new order and requested [facility] fax all lab results to [facility] as last monthly lab results were received November 2022. Pt notified order sent & mailed and to contact [facility] monthly when labs are completed to confirm receipt or have testing @ [facility]. He acknowledged. Encouraged to FU next week with [facility]. [facility] 03-01-2023 Note Patient called statkennedi calvo his repeat tac level still 3.6 in his My Chart, we do not have results yet.. Patient will increase by 0.5 mg in the morning, now on 1 mg in am and 0.5 mg in afternoon of prograf. He will repeat level in one week. [facility] 02-21-2023 Note Per franchesca at Dr serrano an office, incisional culture came back positive pseudomonis, suseptable to Cipro 500 mg BID x [address] Agee notified. [facility] 02-17-2023 Note Patient called to re port that he finished antibiotic for incision infection and was told looking better and they did take sample to send for culture. [facility] 02-09-2023 Note Patient states he wi ll repeat his tac level as not a true 12 hour trough, he did not take yesterday yoselin dose. [facility] 02-09-2023 Note 02/08/23 DD Renal transplant on (08/15/2017) by Dr. Marquez. CMV +/-. Patient has recent history of an [place] and had Pacer/Defib Placed. Patient here for follow up Nephrectomy Patient states he is feeling good with a 21 pound weight loss since bilat [place] kidney's removed. He states that he currently feels much better than pre-op. Patient states that he followed-up with his PCP last week who said his labs were appropriate and notes improved kidney function. Current IS: tacrolimus 0.5 mg twice a day, Myfortic 540 mg twice a day, Prednisone 5 mg every other day Visit Vitals Smoking Status Former No Known Allergies Medication Documentation Review Audit Reviewed by Jaqui Colorado, RN (Registered Nurse) on 01/25/23 at 1404 Medication Order Taking? Sig Documenting Provider Last Dose Status albuterol (ProAir HFA) 90 mcg/actuation inhaler [id number] Yes Inhale 2 puffs every 4 (four) hours if needed for wheezing or shortness of breath. Laney Busch MD 01/24/2023 0530 Active aspirin 81 mg EC tablet [id number] Yes Take 81 mg by mouth in the morning. Makayla Gates MD 01/24/2023 0530 Active atorvastatin (Lipitor) 80 mg tablet [id number] Yes Take 1 tablet (80 mg) by mouth at bedtime. Federico Chester MD 01/23/2023 2100 Active clopidogrel (Plavix) 75 mg tablet [id number] Yes Take 1 tablet (75 mg) by mouth in the morning. Federico Chester MD Past Week Active empagliflozin (Jardiance) 10 mg [id number] Yes Take 1 tablet (10 mg) by mouth once daily as directed. Federico Chester MD 01/23/2023 0800 Active esomeprazole (NexIUM) [address] capsule [id number] Yes Take 1 capsule (40 mg) by mouth before breakfast. Do not open capsule. Federico Chester MD 01/24/2023529 Active famotidine (Pepcid) 20 mg tablet [id number] Yes Take 20 mg by mouth in the morning and at bedtime. Makayla Gates MD Past Month 529 Active isosorbide mononitrate ER (Imdur) 60 mg 24 hr tablet Yes Take 1 tablet (60 mg) by mouth in the morning. Do not crush or chew. Federico Chester MD 01/24/2023529 Active lisinopril 5 mg tablet [id number] Yes Take 1 tablet (5 mg) by mouth in the morning. Federico Chester MD 01/24/2023799 Active magnesium oxide (Mag-Ox) 400 mg tablet [id number] Yes 400 mg in the morning. Makayla Gates MD 01/24/2023529 Active metoprolol succinate XL (Toprol-XL) 200 mg 24 hr tablet Yes Take 1 tablet (200 mg) by mouth once daily as directed. Do not crush or chew. Federico Chester MD 01/24/2023529 Active mycophenolate (Myfortic) 180 mg EC tablet [id number] Yes Take 3 tablets (540 mg) by mouth in the morning and at bedtime. Bobby Agee MD 01/24/2023529 Active nitroglycerin (Nitrostat) 0.4 mg SL tablet [id number] Yes Place 0.4 mg under the tongue every 5 (five) minutes if needed for chest pain. Makayla Gates MD Past Month Active predniSONE (Deltasone) 5 mg tablet [id number] Yes Take 5 mg by mouth every other day. Makayla Gates MD 01/24/2023529 Active ranolazine (Ranexa) 500 mg 12 hr tablet Yes Take 1 tablet (500 mg) by mouth in the morning and at bedtime. Do not crush, chew, or split. Federico Chester MD 01/24/2023529 Active tacrolimus (Prograf) 0.5 mg capsule [id number] Yes tacrolimus 0.5 mg capsule, immediate-release TAKE 1 CAPSULE BY MOUTH TWICE DAILY Phoebe Culver MD 01/24/2023 0530 Active Immunization History Administered Date(s) Administered Unspecified Sars-Cov-2 Vaccination 12/30/2021 Patient Active Problem List Diagnosis Aftercare following organ transplant Kidney replaced by transplant Electrolyte abnormality Immunosuppression ([facility]/HCC) Polycystic kidney disease, autosomal dominant Elevated hemoglobin ([facility]) Other abnormality of red blood cells Post-COVID chronic dyspnea Chronic systolic congestive heart failure ([facility]) Active rickets Acute bronchitis Acute non-ST elevation myocardial infarction (NSTEMI) ([facility]) Age-related nuclear cataract of left eye 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 Coronary artery disease involving lower [place] coronary artery of [place] heart with unstable angina pectoris ([facility]) Gastroesophageal reflux disease Essential hypertension End-stage renal disease ([facility]) Coronary atherosclerosis Hyperkalemia History of kidney disease Gouty arthropathy Hypervitaminosis A Increased infection risk status post immunosuppressive therapy Lower urinary tract symptoms due to benign prostatic hyperplasia Male hypogonadism Hyperlipidemia Microscopic hematuria Mixed hyperlipidemia Myocardial infarction ([facility]) Neuropathy Nocturia Renal failure Pyelonephritis Pseudophakia PCO (posterior capsular opacification), right Stage 4 chronic kidney disease ([facility]/HCC) Stage 3 chronic kidney disease ([facility]) Upper respiratory infection Status post insertion of drug-eluting stent into left anterior descending (LAD) artery for cor (more content not included)... [facility] 01-25-2023 Note 01/25/23 1022 Admission Assessment Questions Verify insurance with patient Yes Do you understand medical disease or what brought you into the hospital? Yes Who is your current PCP? Rosa M Gonzales Can I schedule a follow up appointment for you at the time of discharge? No Do you understand why you are taking your current medications? Yes Are you taking your medications as prescribed? Yes Would you like use our pharmacy [facility] to fill your new medications at the time of Discharge? Yes Does the patient have a case assembler assigned to them through their insurance? No Living Arrangement (Current/Prior to Hospitalization) Private residence (lives with ) Does the patient have history of HHC or SNF? No Assistive Device Walker;Cane;Oxygen (has home o2 with HCS 2-3L as needed.) Patient's goal for discharge home Was patient reminded that goal for discharge is 11am? Yes Does the patient have transportation at discharge? Yes Type of Residence/Post Acute Needs Private residence Is PT/OT appropriate? No Is PT/OT ordered? No Is SW consult appropriate? No Is SW consult ordered? No Do you understand the benefits of MyChart? Yes Were you able to send link and activate MyChart? Yes Home once medically ready [facility] 01-25-2023 Note Attestation signed by Bobby Agee MD at 01/30/2023 8:04 PM By using the attestations below, the signing clinician agrees that I have read and verify that the documentation has been personally reviewed by me and ensure that the documentation accurately reflects the encounter. GC: I personally saw this patient on the day of the encounter, performed the bruce portion(s) of the service and participated in the management and confirm the resident's documentation. Please note there may be an additional personal documentation from me. [facility] Department of Urology DAILY PROGRESS NOTE Subjective Patient underwent robotic bilateral nephrectomy Patient tolerated the procedure well, please refer to op note for further details No acute events overnight Patient states is pain is fairly controlled, but does hurt more than his transplant surgery Has not ambulated Has not passed flatus or BM Denies CP/SoB/DB/N/V/F/C Objective Vitals: Vitals: 01/25/23 0857 BP: 108/67 Pulse: 88 Resp: Temp: SpO2: I/O last 3 completed shifts: In: 4617.3 (48.1 mL/kg) [I.V.:3665.3 (38.2 mL/kg); IV Piggyback:952] Out: 2400 (25 mL/kg) [Urine:2250 (0.7 mL/kg/hr); Blood:150] Weight: 96 kg No intake/output data recorded. Physical Exam HENT: Head: Normocephalic and atraumatic. Cardiovascular: Rate and Rhythm: Normal rate. Pulmonary: Effort: Pulmonary effort is normal. Abdominal: General: Abdomen is flat. Palpations: Abdomen is soft. Comments: Incisions are clean and intact without surrounding erythema, drainage, or induration Abdomen is appropriately tender Skin: General: Skin is warm. Capillary Refill: Capillary refill takes less than 2 seconds. Neurological: Mental Status: He is alert and oriented to person, place, and time. Labs: Results from last 7 days Lab Units 01/25/23 0644 01/24/23 1751 WBC AUTO 10*3/uL 8.82 11.18* HEMOGLOBIN g/dL 13.7 14.9 HEMATOCRIT % 42.5 44.2 PLATELETS AUTO 10*3/uL 232 230 Results from last 7 days Lab Units 01/25/23 0445 01/24/23 1729 01/24/23 1258 01/24/23 1028 SODIUM, WHOLE BLOOD -- -- 136 135* SODIUM mmol/L 143 142 -- -- POTASSIUM, WHOLE BLOOD mmol/L -- -- 4.3 4.1 POTASSIUM mmol/L 3.3* 4.6 -- -- CO2 mmol/L 20* 20* -- -- BUN mg/dL 17 20 -- -- CREATININE mg/dL 0.92 1.12 -- -- Medications: acetaminophen, 650 mg, oral, q6h [Held by provider] aspirin, 81 mg, oral, Daily atorvastatin, 80 mg, oral, Nightly bupivacaine liposome (Exparel) 1.3 % (13.3 mg/mL) 266 mg in sodium chloride 0.9 % 30 mL IV syringe, , miscellaneous, Once [Held by provider] clopidogrel, 75 mg, oral, Daily [Held by provider] dapagliflozin propanediol, 10 mg, oral, Daily docusate sodium, 100 mg, oral, BID insulin aspart, 0-20 Units, subcutaneous, With meals & nightly isosorbide mononitrate ER, 60 mg, oral, Daily [Held by provider] lisinopril, 5 mg, oral, Daily magnesium oxide, 400 mg, oral, Daily magnesium sulfate in D5W, 1 g, intravenous, q1h melatonin, 3 mg, oral, Nightly methocarbamol, 500 mg, oral, 4x daily metoprolol succinate XL, 200 mg, oral, Once Daily mycophenolate, 540 mg, oral, BID pantoprazole, 40 mg, oral, Daily polyethylene glycol, 17 g, oral, Daily potassium chloride, 10 mEq, oral, q1h predniSONE, 5 mg, oral, Every other day ranolazine, 500 mg, oral, BID scopolamine, 1 patch, transdermal, q72h tacrolimus, 0.5 mg, oral, BID BETA sodium chloride, 100 mL/hr, Last Rate: 100 mL/hr (01/25/23 0439) Imaging: CT abdomen pelvis wo IV contrast Narrative: History:Adult polycystic renal disease. Abdominal bloating. Renal transplant CT abdomen and pelvis without contrast Comparison:12/01/2020 Technique: Axial images to the abdomen and pelvis were obtained without contrast. Subsequently sagittal and coronal images were submitted to PACS. Automated exposure control was used Findings: CT abdomen: Extensive cystic involvement in the liver is again appreciated. Few are partially calcified. No obvious interval change. The gallbladder is nondistended. Small gallstone is noted. The spleen and pancreas appear stable. The adrenal glands appear stable. [place] kidneys are diffusely replaced by cystic change. There are a few higher attenuation lesions present. The lesion that previously had higher attenuation now appears to be more lower in attenuation. No imaging evidence of cyst rupture Little interval change. Atherosclerotic disease is noted. No AAA. CT pelvis: No dilated bowel loops or pericolonic fat stranding. No enlarged pelvic or inguinal lymph nodes. No free fluid. No urinary bladder stone is noted. No free fluid is observed. The renal transplant is located in the right lower quadrant and appears unchanged Lumbar spine is unchanged. Impress (more content not included)... [facility] 01-25-2023 Note Patient: Vishal felix Procedure Summary Date: 01/24/23 Room / Location: [facility] OPERATING ROOM 13 / [facility] Operating Room Anesthesia Start: 755 Anesthesia Stop: 1736 Procedure: NEPHRECTOMY, ROBOT-ASSISTED (Bilateral: Abdomen) Diagnosis: PKD (polycystic kidney disease) (PKD (polycystic kidney disease) [Q61.3]) Surgeons: Bobby Agee MD Responsible Provider: Shaan Dawson MD Anesthesia Type: general ASA Status: 4 Anesthesia Type: general Vitals Value Taken Time BP 118/81 01/24/232023 Temp 36.1 ???C (97 ???F) 01/24/23 1722 Pulse 87 01/24/232036 Resp 24 01/24/232036 SpO2 93 % 01/24/232036 Vitals shown include unvalidated device data. Anesthesia Post Evaluation Patient location during evaluation: PACU Level of consciousness: awake Pain management: adequate Airway patency: patent Cardiovascular status: acceptable Respiratory status: acceptable Hydration status: acceptable Patient is hemodynamically stable and is able to be discharged from PACU per anesthesia protocol. No notable events documented. [facility] 01-24-2023 Note Patient: Vishal felix Procedure Summary Date: 01/24/23 Room / Location: [facility] OPERATING ROOM 13 / [facility] Operating Room Anesthesia Start: 0756 Anesthesia Stop: Procedure: NEPHRECTOMY, ROBOT-ASSISTED (Bilateral: Abdomen) Diagnosis: PKD (polycystic kidney disease) (PKD (polycystic kidney disease) [Q61.3]) Surgeons: Bobby Agee MD Responsible Provider: Shaan Dawson MD Anesthesia Type: general ASA Status: 4 Anesthesia Post Transport Note Transport to: PACU O2 Route: room air Patient Monitor: direct observation Transport: uneventful Patient condition is: stable Comments: Patient was able to respond and follow verbal commands throughout transport process [facility] 01-24-2023 Note Airway Date/Time: 01/24/2023 8:14 AM Urgency: elective Airway not difficult General Information and Staff Patient location during procedure: OR Resident/ROUTE DELIVERY CLERK/CAA: Nicola Roblero MD Performed: resident/ROUTE DELIVERY CLERK/CAA Learner assisted: ASHLI Rowland Indications and Patient Condition Indications for airway management: anesthesia Spontaneous Ventilation: absent Sedation level: deep Preoxygenated: yes Patient position: sniffing Mask difficulty assessment: 1 - vent by mask Planned trial extubation Final Airway Details Final airway type: endotracheal airway Successful airway: ETT Cuffed: yes Successful intubation technique: video laryngoscopy Facilitating devices/methods: intubating stylet Blade: Sharpe Blade size: #3 ETT size (mm): 7.5 Cormack-Lehane Classification: grade I - full view of glottis Placement verified by: chest auscultation and capnometry Measured from: lips ETT to lips (cm): 22 Number of attempts at approach: 1 [facility] 01-24-2023 Note Arterial Line: Date/Time: 01/24/2023 8:22 AM An arterial line was placed Procedure performed using surface landmarks.in the OR for the following indication(s): continuous blood pressure monitoring and blood sampling needed. A 20 G (size), 2 inch (length), Angiocath (type) catheter was placed, Seldinger technique used , into the Right radial artery, secured by Biodisc/Biopatch, tape and Tegaderm. Events: patient tolerated procedure well with no complications. Additional notes: Under [place] Staffing Performed: resident/ROUTE DELIVERY CLERK/CAA Resident/ROUTE DELIVERY CLERK: Nicola Roblero MD Performed by: Nicola Roblero MD Authorized by: Shaan Dawson MD [facility] 01-24-2023 Note Patient: Vishal felix Procedure Information Date/Time: 01/24/23 0730 Procedure: NEPHRECTOMY, ROBOT-ASSISTED possible bilateral (Right) Location: [facility] OPERATING ROOM 13 / [facility] Operating Room Surgeons: Bobby Agee MD Relevant Problems Anesthesia (-) History of anesthesia complications Cardio METs > 4 without CP, has ARRIETA and requires 2L n/c O2 supp at baseline, h/o CABG 2008, Stent in left anterior descending (LAD) artery in October 2016, pacemaker defibrillator implantation concern of cardiac arrest with v-fib April 2021 (+) Chronic systolic congestive heart failure (CMS/HCC) (+) Coronary artery disease involving [place] coronary artery of [place] heart with unstable angina pectoris (CMS/HCC) (+) Coronary atherosclerosis (+) Essential hypertension (+) Myocardial infarction (CMS/HCC) GI (+) Gastroesophageal reflux disease (Controlled with PPI, no symptoms this AM) /Renal DD Renal transplant on (08/15/2017) by Dr. Marquez. CMV +/- (+) End-stage renal disease (CMS/HCC) (+) PKD (polycystic kidney disease) (+) Polycystic kidney disease, autosomal dominant (+) Renal failure (+) Stage 4 chronic kidney disease (CMS/HCC) Pulmonary chronic hypoxic respiratory failure on oxygen with exertion on 2L baseline, previous chest imaging demonstrated Multifocal interstitial thickening with patchy groundglass opacities, unchanged, consistent with sequelae of prior infectious/inflammatory process follows with pulmonology (+) Chronic obstructive pulmonary disease (CMS/HCC) Other (+) Gouty arthropathy (+) Kidney replaced by transplant Stress test 06/01/2022: Large area of inferoseptal and anterior apical infarct with small degree of reversible ischemia. Ejection fraction is 43%. No transient ischemic dilation. Normal exercise portion Echocardiogram 09/06/2022 Left Ventricle: The left ventricle is normal size. Global left ventricular systolic function is moderately reduced. EF range is estimated at 35 % -40 %. Left ventricular wall thickness is normal. Regional wall motion abnormalities (see diagram). Right Ventricle: The right ventricle is normal in size. Right ventricular systolic function appears normal. Unable to assess right sided pressures due to lack of measurable tricuspid regurgitation. Left Atrium: The left atrium is normal in size. Overall Conclusions: Due to suboptimal imaging, Lumason contrast was administered for better delineation of the left ventricular apex Labs 01/06/2023 Na 139, K 4.4, Ca 9.6 Cr 1.27 hbg 16.4 plts 230 Clinical information reviewed: Tobacco Allergies Med Hx Surg Hx Fam Hx Soc Hx Physical Exam Airway Mallampati: II TM distance: >3 FB Neck ROM: full Cardiovascular - normal exam Dental - normal exam Pulmonary Comments: Bilateral lower lobe breath sounds decreased Abdominal - normal exam Anesthesia Plan ASA 4 general (Discussed risks and benefits for anesthesia plan of GETA with standard ASA monitoring. All questions answered. Patient verbally acknowledged understanding of risks and benefits. Patient agreeable to the plan and wishes to proceed. ) The patient is not a current smoker. Patient was previously instructed to abstain from smoking on day of procedure. Patient did not smoke on day of procedure. Education provided regarding risk of obstructive sleep apnea. intravenous induction Postoperative administration of opioids is intended. Trial extubation is planned. Anesthetic plan and risks discussed with patient. Use of blood products discussed with patient who consented to blood products. Plan discussed with attending. Additional Equipment Requests [facility] 01-12-[address] Agee , now need to do phlebotomy for recent of hematocrit 50.8 and HGB of 16.4. Dr Agee waits until hematocrit is 55 and hgb closer to 17. Patient will be having nephrectomy 01/24/23 and will repeat labs then. [facility] 12-22-2022 Note 12/22/22 PCP: Rosa M Gonzales MD Txp Referring: Preferred Pharmacy: [id number] - [place], [place] - [address] [facility] [address] [place] [address] Subjective Visit Vitals BP 136/77 Pulse 60 Wt 95.6 kg (210 lb 11.2 oz) BMI 30.23 kg/m??? Smoking Status Former BSA 2.17 m??? No Known Allergies Medication Documentation Review Audit Reviewed by Tim Foy MA (Traffic Signal Repairer) on 12/22/22 at 0857 Medication Order Taking? Sig Documenting Provider Last Dose Status albuterol (ProAir HFA) 90 mcg/actuation inhaler [id number] Yes Inhale 2 puffs every 4 (four) hours if needed for wheezing or shortness of breath. Laney Busch MD Taking Active aspirin 81 mg EC tablet [id number] Yes Take 81 mg by mouth in the morning. Historical Provider, Taking Active atorvastatin (Lipitor) 80 mg tablet [id number] Yes Take 1 tablet (80 mg) by mouth at bedtime. Federico Chester MD Taking Active clopidogrel (Plavix) 75 mg tablet [id number] Yes Take 1 tablet (75 mg) by mouth in the morning. Federico Chester MD Taking Active empagliflozin (Jardiance) 10 mg [id number] Yes Take 1 tablet (10 mg) by mouth once daily as directed. Federico Chester MD Taking Active esomeprazole (NexIUM) [address] capsule [id number] Yes Take 1 capsule (40 mg) by mouth before breakfast. Do not open capsule. Federico Chester MD Taking Active famotidine (Pepcid) 20 mg tablet [id number] Yes Take 20 mg by mouth in the morning and at bedtime. Historical Provider, Taking Active isosorbide mononitrate ER (Imdur) 30 mg 24 hr tablet [id number] Yes Take 1 tablet (30 mg) by mouth once daily as directed. Do not crush or chew. Federico Chester MD Taking Active isosorbide mononitrate ER (Imdur) 60 mg 24 hr tablet Yes Take 1 tablet (60 mg) by mouth in the morning. Do not crush or chew. Federico Chester MD Taking Active lisinopril 5 mg tablet [id number] Yes Take 1 tablet (5 mg) by mouth in the morning. Federico Chester MD Taking Active magnesium oxide (Mag-Ox) 400 mg tablet [id number] Yes 400 mg in the morning. Historical ProviderMD Taking Active metoprolol succinate XL (Toprol-XL) 200 mg 24 hr tablet Yes Take 1 tablet (200 mg) by mouth once daily as directed. Do not crush or chew. Federico Chester MD Taking Active mycophenolate (Myfortic) 180 mg EC tablet [id number] Yes Take 540 mg by mouth in the morning and at bedtime. Historical ProviderMD Taking Active nitroglycerin (Nitrostat) 0.4 mg SL tablet [id number] Yes Place 0.4 mg under the tongue every 5 (five) minutes if needed for chest pain. Historical ProviderMD Taking Active predniSONE (Deltasone) 5 mg tablet [id number] Yes Take 5 mg by mouth every other day. Historical ProviderMD Taking Active ranolazine (Ranexa) 500 mg 12 hr tablet Yes Take 1 tablet (500 mg) by mouth in the morning and at bedtime. Do not crush, chew, or split. Federico Chester MD Taking Active tacrolimus (Prograf) 0.5 mg capsule [id number] Yes tacrolimus 0.5 mg capsule, immediate-release TAKE 1 CAPSULE BY MOUTH TWICE DAILY Historical ProviderMD Taking Active There is no immunization history for the selected administration types on file for this patient. Patient Active Problem List Diagnosis Aftercare following organ transplant Kidney replaced by transplant Electrolyte abnormality Immunosuppression (CMS/HCC) Polycystic kidney disease, autosomal dominant Elevated hemoglobin (CMS/HCC) Other abnormality of red blood cells Post-COVID chronic dyspnea Chronic systolic congestive heart failure (CMS/HCC) Active rickets Acute bronchitis Acute non-ST elevation myocardial infarction (NSTEMI) (CMS/[facility]) Age-related nuclear cataract of left eye 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 Coronary artery disease involving lower [place] coronary artery of [place] heart with unstable angina pectoris (CMS/HCC) Gastroesophageal reflux disease Essential hypertension End-stage renal disease (CMS/HCC) Coronary atherosclerosis Hyperkalemia History of kidney disease Gouty arthropathy Hypervitaminosis A Increased infection risk status post immunosuppressive therapy Lower urinary tract symptoms due to benign prostatic hyperplasia Male hypogonadism Hyperlipidemia Microscopic hematuria Mixed hyperlipidemia Myocardial infarction (CMS/HCC) Neuropathy Nocturia Renal failure Pyelonephritis Pseudophakia PCO (posterior capsular opacification), right Stage 4 chronic kidney disease (CMS/HCC) Stage 3 chronic kidney disease (CMS/HCC) Upper respiratory infection Status post insertion of drug-eluting stent into left anterior descending (LAD) artery for coronary artery disease Ventricular tachycardia (CMS/HCC) History of kidney transplant History of renal transplant PKD (polycystic kidney disease) Family History Problem Relation Name Age of Onset A (more content not included)... [facility] 12-05-2022 Note [facility] Cardiology Clinic Note Chief Complaint: Patient here for 6 mo follow up CAD, CKD, ischemic congestive cardiomyopathy, and hypertension. Had echo in August 2022 at [facility]. Device was checked last month. HPI: Vishal Duke is a 61 y.o. male with coronary artery bypass graft surgery, multiple PCI's and stent placements and ischemic cardiomyopathy here in routine follow-up. He appears to be doing similar to his prior visits. He continues to have burning in the chest with exertion. He underwent recent pulmonary function test. This revealed possible early pulmonary fibrosis. Pertinently, pump inhibitor helped his symptoms at night. He denies actual chest pain. The symptoms of burning are not similar to those he had prior to his bypass or stent placement. They inform me that his urologist wishes to remove one of his lower [place] kidneys as it is pressing up on the stomach and into the chest. Update 12/05/2022: Doing about the same His urologist has decided against removal of his lower [place] kidney until it causes significant symptoms Mr. Duke has had no new cardiovascular symptoms and if anything he states that his chest burning and shortness of breath is less frequent. He has occasional episodes where he needs to take 1 and infrequently to nitroglycerin for relief. Cardiology ROS: Review of Systems Cardiovascular: Positive for palpitations (occasional). Neurological: Positive for light-headedness (occasional). All other systems reviewed and are negative. Past Medical History He has a past medical history of Coronary artery disease, GERD (gastroesophageal reflux disease), Hyperlipidemia, Hypertension, Ischemic congestive cardiomyopathy (CMS/HCC), Myocardial infarction (CMS/HCC), and Polycystic kidney disease. Surgical History He has a past surgical history that includes transplant, kidney, open; Cardiac catheterization; Coronary angioplasty with stent; Vascular surgery; Coronary artery bypass graft; and Cardiac pacemaker placement. Social History He reports that he quit smoking about 15 years ago. His smoking use included cigarettes. He started smoking about 46 years ago. He smoked an average of 1 pack per day. He has never used smokeless tobacco. He reports current alcohol use of about 1.0 standard drink of alcohol per week. He reports that he does not currently use drugs. Family History Family History Problem Relation Name Age of Onset Alzheimer's disease Mother Coronary artery disease Father Allergies Patient has no known allergies. Medications Current Outpatient Medications: albuterol (ProAir HFA) 90 mcg/actuation inhaler, Inhale 2 puffs every 4 (four) hours if needed for wheezing or shortness of breath., Disp: 8.5 g, Rfl: 2 aspirin 81 mg EC tablet, Take 81 mg by mouth in the morning., Disp: , Rfl: aspirin 81 mg EC tablet, in the morning., Disp: , Rfl: atorvastatin (Lipitor) 80 mg tablet, Take 80 mg by mouth at bedtime., Disp: , Rfl: clopidogrel (Plavix) 75 mg tablet, Take 75 mg by mouth in the morning., Disp: , Rfl: dapagliflozin (Farxiga) 10 mg, Farxiga 10 mg tablet TAKE 1 TABLET BY MOUTH EVERY DAY, Disp: 30 tablet, Rfl: 11 empagliflozin (Jardiance) 10 mg, Take 1 tablet (10 mg) by mouth in the morning., Disp: 90 tablet, Rfl: 3 esomeprazole (NexIUM) [address] capsule, Take 1 capsule (40 mg) by mouth before breakfast. Do not open capsule., Disp: 90 capsule, Rfl: 3 famotidine (Pepcid) 20 mg tablet, Take 20 mg by mouth in the morning and at bedtime., Disp: , Rfl: famotidine (Pepcid) 20 mg tablet, in the morning., Disp: , Rfl: isosorbide mononitrate ER (Imdur) 30 mg 24 hr tablet, isosorbide mononitrate ER 30 mg tablet,extended release 24 hr TAKE 1 TABLET BY MOUTH EVERY DAY, Disp: , Rfl: isosorbide mononitrate ER (Imdur) 30 mg 24 hr tablet, Take 1 tablet (30 mg) by mouth once daily as directed. Do not crush or chew., Disp: 90 tablet, Rfl: 3 lisinopril 5 mg tablet, lisinopril 5 mg tablet TAKE 1 TABLET BY MOUTH ONCE DAILY, Disp: , Rfl: lisinopril 5 mg tablet, Take 1 tablet (5 mg) by mouth in the morning., Disp: 90 tablet, Rfl: 3 magnesium oxide (Mag-Ox) 400 mg tablet, 400 mg in the morning., Disp: , Rfl: metoprolol succinate XL (Toprol-XL) 200 mg 24 hr tablet, Take 200 mg by mouth in the morning. Do not crush or chew., Disp: , Rfl: metoprolol succinate XL (Toprol-XL) 200 mg 24 hr tablet, metoprolol succinate ER 200 mg tablet,extended release 24 hr TAKE 1 TABLET BY MOUTH DAILY, Disp: , Rfl: metoprolol tartrate (Lopressor) 100 mg tablet, 1 (one) time each day at the same time., Disp: , Rfl: metoprolol tartrate (Lopressor) 50 mg tablet, Take by mouth., Disp: , Rfl: mycophenolate (Myfortic) 180 mg EC tablet, Take 540 mg by mouth in the morning and at bedtime., Disp: , Rfl: nitroglycerin (Nitrostat) 0.4 mg SL tablet, Place 0.4 mg under the tongue every 5 (five) minutes if needed for chest pain., Disp: , Rfl: predniSONE (Deltas (more content not included)... [facility] 10-24-2022 Note Attestation signed by Shaun Castanon MD at 10/30/2022 8:04 PM I personally saw and examined the patient on the same date of service as resident/fellow Dr. Brown. I discussed the findings and therapeutic plan with the resident/fellow Dr. Brown. I agree with the documentation, except for any edits/updates. Pulmonary Clinic Visit Note Patient: Vishal Duke Age: 61 y.o. : 1960 Account No.: [id number] Chief complaint: Follow up visit. Last visit 07/2022 HPI Vishal Duke is a 61 y.o. male With history of CABG, Heart failure with reduced ejection fraction, last EF 35%, renal transplant, chronic hypoxic respiratory failure on oxygen with exertion , COVID infection on 2020 requiring admission due to hypoxic respiratory failure. Patient comes in the clinic today for follow-up, for the most part she is feeling well, occasional shortness of breath on exertion. He walks on a treadmill almost daily, walking around 2 miles. Denies any cough or sputum production. No fever or chills. No lower extremity swelling. Most recent PFT 08/2022 Lung volumes body box technique, all lung volumes are within normal limits however at the lower limits of normal. Moderately reduced DLCO 52% 6MWT 08/2022 No evident hypoxia upon walking. Total distance 411, 76% predicted. Most recent Echo 07/2022 EF 35%, Left ventricular wall thickness is normal. Regional wall motion abnormalities. Right ventricular systolic function appears normal. Unable to assess right sided pressures due to lack of measurable tricuspid regurgitation Most recent imaging Ct scan 05/2021 No suspicious lung nodule, mass or significant parenchymal consolidation. Mildly prominent subpleural bands right greater than left. No pleural or pericardial effusions. No significant mediastinal or hilar lymphadenopathy. Past Medical History: Diagnosis Date Coronary artery disease GERD (gastroesophageal reflux disease) Hyperlipidemia Hypertension Ischemic congestive cardiomyopathy (CMS/HCC) Myocardial infarction (CMS/HCC) Polycystic kidney disease Past Surgical History: Procedure Laterality Date CARDIAC CATHETERIZATION CARDIAC PACEMAKER PLACEMENT CORONARY ANGIOPLASTY WITH STENT PLACEMENT CORONARY ARTERY BYPASS GRAFT TRANSPLANT, KIDNEY, OPEN VASCULAR SURGERY Allergies: Patient has no known allergies. Prior to Admission medications Medication Sig Start Date End Date Taking? Authorizing Provider aspirin 81 mg EC tablet Take 81 mg by mouth in the morning. Historical Provider, aspirin 81 mg EC tablet in the morning. Historical ProviderMD atorvastatin (Lipitor) 80 mg tablet Take 80 mg by mouth at bedtime. Historical Provider, clopidogrel (Plavix) 75 mg tablet Take 75 mg by mouth in the morning. Historical Provider, dapagliflozin (Farxiga) 10 mg Farxiga 10 mg tablet TAKE 1 TABLET BY MOUTH EVERY DAY 03/29/22 Federico Chester MD empagliflozin (Jardiance) 10 mg Take 1 tablet (10 mg) by mouth in the morning. 07/05/22 07/05/23 Federico Chester MD esomeprazole (NexIUM) [address] capsule Take 40 mg by mouth before breakfast. Do not open capsule. Historical ProviderMD famotidine (Pepcid) 20 mg tablet Take 20 mg by mouth in the morning and at bedtime. Historical Provider, famotidine (Pepcid) 20 mg tablet in the morning. Historical ProviderMD isosorbide mononitrate ER (Imdur) 30 mg 24 hr tablet isosorbide mononitrate ER 30 mg tablet,extended release 24 hr TAKE 1 TABLET BY MOUTH EVERY DAY Historical ProviderMD isosorbide mononitrate ER (Imdur) 30 mg 24 hr tablet Take 1 tablet (30 mg) by mouth once daily as directed. Do not crush or chew. Patient not taking: Reported on 09/27/2022 09/21/22 Federico Chester MD lisinopril 5 mg tablet Take 5 mg by mouth in the morning. Historical ProviderMD lisinopril 5 mg tablet lisinopril 5 mg tablet TAKE 1 TABLET BY MOUTH ONCE DAILY 01/03/20 Historical Provider, magnesium oxide (Mag-Ox) 400 mg tablet 400 mg in the morning. Historical Provider, metoprolol succinate XL (Toprol-XL) 200 mg 24 hr tablet Take 200 mg by mouth in the morning. Do not crush or chew. Historical ProviderMD metoprolol succinate XL (Toprol-XL) 200 mg 24 hr tablet metoprolol succinate ER 200 mg tablet,extended release 24 hr TAKE 1 TABLET BY MOUTH DAILY 10/05/21 Historical Provider, metoprolol tartrate (Lopressor) 100 mg tablet 1 (one) time each day at the same time. Historical Provider, metoprolol tartrate (Lopressor) 50 mg tablet Take by mouth. 01/01/20 Historical Provider, mycophenolate (Myfortic) 180 mg EC tablet Take 540 mg by mouth in the morning and at bedtime. Historical Provider, nitroglycerin (Nitrostat) 0.[address] 0.4 mg under the tongue every 5 (five) minutes if needed for chest p (more content not included)... [facility] 09-27-2022 Note 09/27/22 Chief Complaint Patient presents with Kidney Follow-up No major concerns today PCP: Rosa M Gonzales MD Txp Referring: Preferred Pharmacy: [id number] - [place], [place] - [address] [facility] [address] [facility] [address] Subjective Visit Vitals BP 121/76 (BP Location: Right arm, Patient Position: Sitting, BP Cuff Size: Adult) Pulse 60 Temp 36.5 ???C (97.7 ???F) (Oral) Wt 96 kg (211 lb 11.2 oz) BMI 30.38 kg/m??? Smoking Status Former BSA 2.18 m??? No Known Allergies Medication Documentation Review Audit Reviewed by Derek Mccoy (Traffic Signal Repairer) on 09/27/22 at 0859 Medication Order Taking? Sig Documenting Provider Last Dose Status aspirin 81 mg EC tablet [id number] No Take 81 mg by mouth in the morning. Historical ProviderMD Not Taking Active aspirin 81 mg EC tablet [id number] Yes in the morning. Historical ProviderMD Taking Active atorvastatin (Lipitor) 80 mg tablet [id number] Yes Take 80 mg by mouth at bedtime. Historical ProviderMD Taking Active clopidogrel (Plavix) 75 mg tablet [id number] Yes Take 75 mg by mouth in the morning. Historical ProviderMD Taking Active dapagliflozin (Farxiga) 10 mg [id number] Farxiga 10 mg tablet TAKE 1 TABLET BY MOUTH EVERY DAY Federico Chester MD Active empagliflozin (Jardiance) 10 mg [id number] Yes Take 1 tablet (10 mg) by mouth in the morning. Federico Chester MD Taking Active esomeprazole (NexIUM) [address] capsule [id number] Yes Take 40 mg by mouth before breakfast. Do not open capsule. Makayla Gates MD Taking Active famotidine (Pepcid) 20 mg tablet [id number] Yes Take 20 mg by mouth in the morning and at bedtime. Makayla Gates MD Taking Active famotidine (Pepcid) 20 mg tablet [id number] No in the morning. Makayla Gates MD Not Taking Active Discontinued 09/21/22 1548 isosorbide mononitrate ER (Imdur) 30 mg 24 hr tablet [id number] Yes isosorbide mononitrate ER 30 mg tablet,extended release 24 hr TAKE 1 TABLET BY MOUTH EVERY DAY Makayla Gates MD Taking Active isosorbide mononitrate ER (Imdur) 30 mg 24 hr tablet [id number] No Take 1 tablet (30 mg) by mouth once daily as directed. Do not crush or chew. Patient not taking: Reported on 09/27/2022 Federico Chester MD Not Taking Active lisinopril 5 mg tablet [id number] No Take 5 mg by mouth in the morning. Historical MD Yajaira Not Taking Active lisinopril 5 mg tablet [id number] Yes lisinopril 5 mg tablet TAKE 1 TABLET BY MOUTH ONCE DAILY Makayla Gates MD Taking Active magnesium oxide (Mag-Ox) 400 mg tablet [id number] Yes 400 mg in the morning. Makayla Gates MD Taking Active metoprolol succinate XL (Toprol-XL) 200 mg 24 hr tablet [id number] Yes Take 200 mg by mouth in the morning. Do not crush or chew. Makayla Gates MD Taking Active metoprolol succinate XL (Toprol-XL) 200 mg 24 hr tablet [id number] No metoprolol succinate ER 200 mg tablet,extended release 24 hr TAKE 1 TABLET BY MOUTH DAILY Makayla Gates MD Not Taking Active metoprolol tartrate (Lopressor) 100 mg tablet [id number] No 1 (one) time each day at the same time. Makayla Gates MD Not Taking Active metoprolol tartrate (Lopressor) 50 mg tablet [id number] No Take by mouth. Makayla Gates MD Not Taking Active mycophenolate (Myfortic) 180 mg EC tablet [id number] Yes Take 540 mg by mouth in the morning and at bedtime. Historical Provider, Taking Active nitroglycerin (Nitrostat) 0.4 mg SL tablet [id number] Yes Place 0.4 mg under the tongue every 5 (five) minutes if needed for chest pain. Historical Provider, Taking Active predniSONE (Deltasone) 5 mg tablet [id number] Yes Take 5 mg by mouth every other day. Historical Provider, Taking Differently Active predniSONE (Deltasone) 5 mg tablet [id number] No Take 5 mg by mouth. Historical Provider, Not Taking Active Discontinued 09/21/22 1552 ranolazine (Ranexa) 500 mg 12 hr tablet [id number] Yes Take 1 tablet (500 mg) by mouth in the morning and at bedtime. Do not crush, chew, or split. Federico Chester MD Taking Active tacrolimus (Prograf) 0.5 mg capsule [id number] Yes tacrolimus 0.5 mg capsule, immediate-release TAKE 1 CAPSULE BY MOUTH TWICE DAILY Historical ProviderMD Taking Active tacrolimus (Prograf) 1 mg capsule [id number] Yes Take 0.5 mg by mouth in the morning and at bedtime. Patient takes 1 mg in the am, 0.5 mg in the pm Historical ProviderMD Taking Active Immunization History Administered Date(s) Administered Moderna SARS-CoV-2 Vaccination 06/12/2020, 07/10/2020 Patient Active Problem List Diagnosis Aftercare following organ transplant Kidney replaced by transplant Electrolyte abnormality Immunosuppression (CMS/HCC) Polycystic kidney disease, autosomal dominant Elevated hemoglobin (CMS/HCC) Other abnormality of red blood cells Family History Problem Relation Name Age of Onset Alzheimer's disease Mother Coronary artery disease F (more content not included)... [facility] 09-01-2022 Note Patient came in [facility] for his pft test. His DLCO was 52% of predicted. The predicted value was 27.42 and he did 14.33. In addition, patient tested in January of 2022. Recently we just changed our predicted authors. In January of 2022, the old author reported his DLCO to be 57% of predicted. Updated to our recent author it would really be 67% of predicted in 2021. However, today it was 52% of predicted. Just wanted to report the difference. [facility] 08-18-2022 Note Reviewed 08/18/22 Hgb 17 and Hematocrit 52.7 by phone with Sb FRANK and per his phone order, phlebotomy x 1 unit PRBC and schedule RV with Petey Gonzalez BUSINESS SERVICES COORDINATOR to change ARB to ANNE during RV. Pt notified to stay well hydrated and requested phlebotomy @ [facility] and pt given RV appointment 09/27/22 and verbalizes understanding for RV. Notified Bop (Liza) of new order- scheduled @2pm tomorrow and pt agrees. Other labs pending receipt from [employer] today. [facility] 07-29-2022 Note Attestation signed by Georgie Carson MD at 08/02/2022 4:19 PM I personally saw and examined the patient on the same date of service as resident/fellow Kelvin Berry MD. I discussed the findings and therapeutic plan with the resident/fellow Kelvin Berry MD. I agree with the documentation, except for any edits/updates below. Attending Attestation: Georgie Carson MD Attending Physician, Pulmonary, Critical Care and Sleep Medicine [facility] 08/02/22 Pulmonary Clinic Visit Note Patient: Vishal Duke Age: 61 y.o. : 1960 Account No.: [id number] HPI 60-year-old gentleman With history of CABG, renal transplant, chronic hypoxic respiratory failure on oxygen with exertion who continues to follow-up with us status post Covid infection, with post Covid syndrome. Patient had COVID infection on 2020 requiring admission due to hypoxic respiratory failure. Patient was last seen on May 2021. PFT ordered. Patient currently feels relatively well, no recent worsening of his symptoms, no recent exacerbation. No recent hospitalization or has ER visit. Continues to have intermittent shortness of breath with exertion. Does not use any inhalers. Continues to use oxygen as needed. Reports significant symptoms of GERD which has not been controlled with PPI. Report daily basis acid reflux symptoms. PFT 2021 reveals Spirometry is within normal limits. Flow-Volume loops are normal. Plethysmographic lung volumes are within normal limits. Mild reduction in residual volume Diffusing Capacity: Diffusing capacity of the lung is reduced at 54 % predicted. Conclusions: An isolated reduction in Diffusing Capacity is present and may represent early parenchymal fibrosis, or pulmonary vascular disease. . Former smoker: Disability, used to work in [employer] No family hx of asthma, Past Medical History: Diagnosis Date Coronary artery disease GERD (gastroesophageal reflux disease) Hyperlipidemia Hypertension Ischemic congestive cardiomyopathy (CMS/HCC) Myocardial infarction (CMS/HCC) Polycystic kidney disease Past Surgical History: Procedure Laterality Date CARDIAC CATHETERIZATION CARDIAC PACEMAKER PLACEMENT CORONARY ANGIOPLASTY WITH STENT PLACEMENT CORONARY ARTERY BYPASS GRAFT TRANSPLANT, KIDNEY, OPEN VASCULAR SURGERY Allergies: Patient has no known allergies. Prior to Admission medications Medication Sig Start Date End Date Taking? Authorizing Provider aspirin 81 mg EC tablet Take 81 mg by mouth in the morning. Historical Provider, atorvastatin (Lipitor) 80 mg tablet Take 80 mg by mouth at bedtime. Historical Provider, clopidogrel (Plavix) 75 mg tablet Take 75 mg by mouth in the morning. Historical Provider, dapagliflozin (Farxiga) 10 mg Farxiga 10 mg tablet TAKE 1 TABLET BY MOUTH EVERY DAY 03/29/22 Federico Chester MD empagliflozin (Jardiance) 10 mg Take 1 tablet (10 mg) by mouth in the morning. 07/05/22 07/05/23 Federico Chester MD esomeprazole (NexIUM) [address] capsule Take 40 mg by mouth before breakfast. Do not open capsule. Historical Provider, famotidine (Pepcid) 20 mg tablet Take 20 mg by mouth in the morning and at bedtime. Historical Provider, isosorbide mononitrate ER (Imdur) 30 mg 24 hr tablet Take 30 mg by mouth in the morning. Do not crush or chew. Historical Provider, lisinopril 5 mg tablet Take 5 mg by mouth in the morning. Historical Provider, magnesium oxide (Mag-Ox) 400 mg tablet 400 mg in the morning. Historical ProviderMD metoprolol succinate XL (Toprol-XL) 200 mg 24 hr tablet Take 200 mg by mouth in the morning. Do not crush or chew. Historical ProviderMD mycophenolate (Myfortic) 180 mg EC tablet Take 540 mg by mouth in the morning, at noon, and at bedtime. Historical Provider, nitroglycerin (Nitrostat) 0.[address] 0.4 mg under the tongue every 5 (five) minutes if needed for chest pain. Historical Provider, predniSONE (Deltasone) 5 mg tablet Take 5 mg by mouth in the morning. Historical Provider, ranolazine (Ranexa) 500 mg 12 hr tablet Take 500 mg by mouth in the morning and at bedtime. Do not crush, chew, or split. Historical Provider, tacrolimus (Prograf) 1 mg capsule Take 0.5 mg by mouth in the morning and at bedtime. Patient takes 1 mg in the am, 0.5 mg in the pm Historical Provider, Social history: reports that he quit smoking about 15 years ago. His smoking use included cigarettes. He started smoking about 46 years ago. He smoked an average of 1 pack per day. He has never used smokeless tobacco. He reports current alcohol use of about 1.0 standard drink per week. He reports that he does not currently use drugs. Family History (more content not included)... [facility] 07-05-2022 Note ja [facility] 06-16-2022 Note Subjective Patient ID: Vishal Duke is a 61 y.o. male who presents for Kidney Follow-up. HPI Mr. Duke has bilateral large polycystic kidneys. He continues to be bothered by them. Has abdominal discomfort. He has a history of coronary artery disease for which she is being managed. His kidney function is acceptable. He continues to tolerate his immunosuppression. Review of Systems Constitutional: Negative. Eyes: Negative. Gastrointestinal: Positive for abdominal distention, abdominal pain and constipation. Endocrine: Negative. Genitourinary: Positive for frequency. Allergic/Immunologic: Positive for immunocompromised state. All other systems reviewed and are negative. Objective Visit Vitals BP 138/75 Pulse 60 Physical Exam HENT: Head: Normocephalic and atraumatic. Nose: Nose normal. Eyes: Conjunctiva/sclera: Conjunctivae normal. Pupils: Pupils are equal, round, and reactive to light. Cardiovascular: Rate and Rhythm: Normal rate. Pulmonary: Effort: Pulmonary effort is normal. Abdominal: General: Abdomen is protuberant. A surgical scar is present. There is distension. Musculoskeletal: General: Normal range of motion. Neurological: General: No focal deficit present. Psychiatric: Mood and Affect: Mood normal. Assessment/Plan Diagnoses and all orders for this visit: Electrolyte abnormality Kidney replaced by transplant - Comprehensive metabolic panel - Hepatic function panel - Lipid panel - Uric acid - Tacrolimus level - Magnesium - Phosphorus - CBC and differential - BK virus, plasma, quantitative - CBC and differential - CBC and differential Immunosuppression (CMS/HCC) Aftercare following organ transplant - POCT urinalysis dipstick manually resulted Polycystic kidney disease, autosomal dominant Diagnosis Plan 1. Kidney replaced by transplant Comprehensive metabolic panel Hepatic function panel Lipid panel Uric acid Tacrolimus level Magnesium Phosphorus CBC and differential BK virus, plasma, quantitative CBC and differential CBC and differential Orders Placed This Encounter Procedures CBC auto differential Order Specific Question: Release to Patient Answer: Immediately CBC auto differential Order Specific Question: Release to Patient Answer: Immediately CBC auto differential Order Specific Question: Release to Patient Answer: Immediately Recent Results (from the past 36 hour(s)) Phosphorus Collection Time: 06/16/22 8:52 AM Result Value Ref Range Phosphorus 3.4 2.5 - 5.0 mg/dL Magnesium Collection Time: 06/16/22 8:52 AM Result Value Ref Range Magnesium 1.8 (L) 1.9 - 2.7 mg/dL Uric acid Collection Time: 06/16/22 8:52 AM Result Value Ref Range Uric Acid 5.5 4.4 - 7.6 mg/dL Lipid panel Collection Time: 06/16/22 8:52 AM Result Value Ref Range Triglycerides 144 40 - 149 mg/dL Cholesterol 137 120 - 200 mg/dL LDL Calculated 65 0 - 160 mg/dL HDL 43 23 - 92 mg/dL Non HDL Cholesterol 94 Total VLDL-C 29 0 - 40 mg/dL Cholesterol/HDL Ratio 3.2 mg/dL Comprehensive metabolic panel Collection Time: 06/16/22 8:52 AM Result Value Ref Range Sodium 140 136 - 145 mmol/L Potassium 4.7 3.5 - 5.1 mmol/L Chloride 105 98 - 107 mmol/L CO2 28 21 - 31 mmol/L Anion Gap 12 7 - 20 mmol/L BUN 18 7 - 25 mg/dL Creatinine 1.29 0.70 - 1.30 mg/dL BUN/Creatinine Ratio 14.0 Glucose 105 (H) 70 - 100 mg/dL Calcium 9.7 8.6 - 10.3 mg/dL AST 24 13 - 39 U/L ALT (SGPT) 32 7 - 52 U/L Alkaline Phosphatase 77 34 - 104 U/L Total Protein 6.7 6.0 - 8.3 g/dL Albumin 4.6 3.5 - 5.7 g/dL Total Bilirubin 0.9 0.3 - 1.0 mg/dL eGFR 63.1 >60.0 mL/min/1.73m*2 CBC auto differential Collection Time: 06/16/22 8:52 AM Result Value Ref Range Auto WBC 6.88 4.00 - 10.60 10*3/uL RBC 5.54 4.20 - 5.70 10*6/uL Hemoglobin 16.8 13.0 - 17.0 g/dL Hematocrit 51.3 39.0 - 55.0 % MCV 92.6 82.0 - 98.0 fL MCH 30.3 27.0 - 33.0 pg MCHC 32.7 32.0 - 35.0 g/dL RDW 14.4 11.5 - 15.0 % Neutrophils Relative 68.8 40.0 - 72.0 % Lymphocytes Relative 17.4 (L) 20.0 - 45.0 % Monocytes Relative 10.3 5.0 - 12.0 % Eosinophils Relative 1.9 0.0 - 6.0 % Basophils Relative 1.0 0.0 - 1.0 % Neutrophils Absolute 4.73 1.60 - 7.60 10*3/uL Lymphocytes Absolute 1.20 1.20 - 4.00 10*3/uL Monocytes Absolute 0.71 0.10 - 1.00 10*3/uL Eosinophils Absolute 0.13 0.00 - 0.50 10*3/uL Basophils Absolute 0.07 0.00 - 0.20 10*3/uL Platelets 264 150 - 400 10*3/uL nRBC % 0.0 0.0 - 0.0 % Immature Granulocytes Relative 0.6 0.0 - 1.0 % Immature Granulocytes Absolute 0.04 0.00 - 0.20 10*3/uL Bilirubin, direct Collection Time: 06/16/22 8:52 AM Result Value Ref Range Bilirubin, Direct 0.2 0 - 0.2 mg/dL history of renal transplant - DD Renal transplant on (08/15/2017) by Dr. Marquez. CMV +/-. Patient has recent history of an OH and had Pacer/Defib Placed. Clinic visit for follow up transplant Current IS: tacrolimus 0.5 mg twice (more content not included)... [facility] 06-16-2022 Note 06/16/[address] Agee Nurse note history of renal transplant - DD Renal transplant on (08/15/2017) by Dr. Marquez. CMV +/-. Patient has recent history of an OH and had Pacer/Defib Placed. Clinic visit for follow up renal transplant Current IS: tacrolimus 0.5 mg twice daily, mycophenolate 540 mg twice daily and prednisone 5 mg daily Recent Labs: Prospera 0.29% today cr 1.27, BUN 18, k 4.1, mag 1.5, phos 3.4, wbc 6.88, hgb 16.8 -Patient denies any N, V, D, C, CP or SOB. Pt also denies any urinary complaints. -Discussion re nephrectomy put on hold until patient feel comfortable or have a need to have done -COVID precautions with distancing and mask use discussed -Incision Healed appropriately -Continue Current IS -Continue good hydration and as ordered - Continue monthly labs and as ordered - Follow up: 6 months [facility] 05-30-2022 Note CARDIAC STRESS TEST Requesting Physician: Procedure Date:05/30/2022 INDICATIONS: Pre-op, abnormal EKG, history of coronary artery disease. METHOD: After risks, benefits and alternatives explained, written informed consent was obtained. The patient was connected to the appropriate hemodynamic and electrocardiographic monitoring. 0.4 mg of Lexiscan was infused intravenously. He was monitored for the standard duration and discharged in a stable state. Nuclear imaging was to follow. FINDINGS: HEMODYNAMICS: Resting heart rate was 60 beats per minute, increasing to a maximum of 85 beats per minute. Resting blood pressure was 142/76, decreasing to a minimum of 134/72. The patient had no chest pain. He had dyspnea. ELECTROCARDIOGRAPHY: REST EKG: Sinus rhythm, 60 beats per minute, non-specific ST-T wave changes. Borderline resting EKG. DURING INFUSION AND RECOVERY: Infrequent premature ventricular contractions are noted. No significant ST-T wave changes are seen. FINAL IMPRESSIONS: 1. No significant ischemic EKG changes seen on Lexiscan pharmacological stress testing. 2. Nuclear images are to be read, interpreted, and relayed in a separate dictation. [facility] 05-18-2022 Note [facility] Cardiology Clinic Note Chief Complaint: Patient here for 6 mo follow up CAD. Still has the burning in his chest and SOB with exertion. Had his device checked yesterday in the office. Had PFT's at [facility] in Jan 2022. HPI: Vishal Duke is a 61 y.o. male With a complex cardiac history including coronary artery bypass graft surgery, multiple PCI's and stent placements and ischemic cardiomyopathy here in routine follow-up. He appears to be doing similar to his prior visits. He continues to have burning in the chest with exertion. He underwent recent pulmonary function test. This revealed possible early pulmonary fibrosis. Pertinently, pump inhibitor helped his symptoms at night. He denies actual chest pain. The symptoms of burning are not similar to those he had prior to his bypass or stent placement. They inform me that his urologist wishes to remove one of his [place] kidneys as it is pressing up on the stomach and into the chest. Cardiology ROS: Review of Systems Cardiovascular: Positive for chest pain, dyspnea on exertion and palpitations. All other systems reviewed and are negative. Past Medical History He has a past medical history of Coronary artery disease and Polycystic kidney disease. Surgical History He has a past surgical history that includes transplant, kidney, open. Social History He reports that he quit smoking about 15 years ago. His smoking use included cigarettes. He started smoking about 46 years ago. He has never used smokeless tobacco. He reports current alcohol use. He reports that he does not currently use drugs. Family History No family history on file. Allergies Patient has no known allergies. Medications (Not in a hospital admission) Last Recorded Vitals Patient Vitals for the past 24 hrs: BP Pulse SpO2 Height Weight 05/18/22 0924 114/75 68 98 % 1.803 m (5' 11 ) 95.7 kg (211 lb) Physical Examination: GENERAL: alert and oriented x3, well developed, in no acute distress. HEAD: atraumatic, normocephalic. EYES: PROSPER, EOMI. NECK: trachea midline, no JVD present, no carotid bruits present. CARDIAC: S1, S2 present. RRR. No murmur, rubs, or gallops. RESPIRATORY: CTAB, no increased effort of breathing, no rales, rhonchi, or wheezing. ABDOMEN: soft, nontender, nondistended. EXTREMITIES: no lower extremity edema, peripheral pulses are 2+ bilaterally. No rash/skin discoloration present. NEURO: strength/sensation equal and symmetric in bilateral upper and lower extremities. PSYCH: appropriate mood, affect, and judgement. Investigations: Lexiscan stress test 01/11/2021: Large area of inferoseptal perfusion defect extending to the apex with mild reversibility. Nondiagnostic exercise test due to abnormal resting EKG. EF is 41%. Pulmonary function test Status: Final result Study Result Narrative & Impression PFT Interpretation Quality of Data: The patient's efforts are acceptable and reproducible. Test Performed: Complete pulmonary function tests, including spirometry with and without bronchodilator, measurement of lung volume, and diffusing capacity Spirometry Interpretation: Spirometry is within normal limits. Flow Volume Loops: Flow-Volume loops are normal. Lung Volumes: Plethysmographic lung volumes are within normal limits. Mild reduction in residual volume Diffusing Capacity: Diffusing capacity of the lung is reduced at 54 % predicted. Conclusions: An isolated reduction in Diffusing Capacity is present and may represent early parenchymal fibrosis, or pulmonary vascular disease. Clinical correlation is recommended. Assessment: 1. Coronary atherosclerosis I25.10: Atherosclerotic heart disease of [place] coronary artery without angina pectoris atorvastatin 80 mg tablet - TAKE 1 TABLET BY MOUTH EVERY DAY Qty: 90 tablet(s) Refills: 3 Pharmacy: [id number] clopidogrel 75 mg tablet - TAKE 1 TABLET BY MOUTH DAILY Qty: 90 tablet(s) Refills: 3 Pharmacy: [id number] metoprolol succinate ER 200 mg tablet,extended release 24 hr - TAKE 1 TABLET BY MOUTH DAILY Qty: 90 tablet(s) Refills: 3 Pharmacy: [id number] 2. Gastroesophageal reflux disease K21.9: Gastro-esophageal reflux disease without esophagitis GASTROESOPHAGEAL REFLUX DISEASE (GERD): CARE INSTRUCTIONS 3. Coronary arteriosclerosis in [place] artery - Continue risk factor modifications including heart healthy diet, exercise on a regular regimen, continue medications as currently prescribed Continue aspirin, Effient, pravastatin, metoprolol Denies any bleeding tendencies I25.10: Atherosclerotic heart disease of [place] coronary artery without angina pectoris 4. Hyperlipidemia - Continue statin E78.2: Mixed hyperlipidemia HIGH CHOLESTEROL: CARE INSTRUCTIONS 5. Essential hypertension - Blood pressure well controlled 128/77 Continue lisinopril, metoprolol I10: Essential (prima (more content not included)... [facility] 04-07-2022 Note Patient seen in clin ic, to decrease Tacrolimus IR by 0.5mg daily, new dose will now be 0.5mg bid. Patient voiced understanding of medication change. To repeat tac level in about a week. [facility] 04-07-2022 Note Subjective Patient ID: Vishal Duke is a 61 y.o. male who presents for Kidney Follow-up (Patient reports some abdominal pain when he does too much, when he tries to bend down or squat it feels like a soft ball there RLQ.). HPI Patient is doing well. Patient has abdominal discomfort from the bilateral PKD Voiding well Patient has to have Cardiac stent placed. Continuing to improve slowly. Review of Systems Gastrointestinal: Positive for abdominal pain. Allergic/Immunologic: Positive for immunocompromised state. All other systems reviewed and are negative. Objective Visit Vitals BP 114/77 (BP Location: Right arm, Patient Position: Sitting) Pulse 85 Temp 36.5 ???C (97.7 ???F) (Oral) Physical Exam Vitals reviewed. Constitutional: Appearance: Normal appearance. He is normal weight. HENT: Head: Normocephalic. Nose: Nose normal. Eyes: Conjunctiva/sclera: Conjunctivae normal. Pupils: Pupils are equal, round, and reactive to light. Cardiovascular: Rate and Rhythm: Tachycardia present. Abdominal: Palpations: Abdomen is soft. Musculoskeletal: General: Normal range of motion. Neurological: General: No focal deficit present. Mental Status: He is alert. Psychiatric: Mood and Affect: Mood normal. Assessment/Plan Diagnosis Plan 1. Kidney replaced by transplant CBC and differential Phosphorus Magnesium Tacrolimus level Uric acid Comprehensive metabolic panel Bilirubin, direct Hepatic function panel POCT urinalysis dipstick manually resulted POCT urinalysis dipstick manually resulted Orders Placed This Encounter Procedures CBC auto differential Order Specific Question: Release to Patient Answer: Immediately Bilirubin, direct Order Specific Question: Release to Patient Answer: Immediately POCT urinalysis dipstick manually resulted Order Specific Question: Release to Patient Answer: Immediately POCT urinalysis dipstick manually resulted Order Specific Question: Release to Patient Answer: Immediately [facility] 01-17-2022 Hospital Discharge instructions Patient Education 01/17/2022 12:05:57 Benign Prostatic Hyperplasia Benign Prostatic Hyperplasia Benign prostatic hyperplasia (BPH) is an enlarged prostate gland that is caused by the normal aging process and not by cancer. The prostate is a walnut-sized gland that is involved in the production of semen. It is located in front of the rectum and below the bladder. The bladder stores urine and the urethra is the tube that carries the urine out of the body. The prostate may get bigger as a man gets older. An enlarged prostate can press on the urethra. This can make it harder to pass urine. The build-up of urine in the bladder can cause infection. Back pressure and infection may progress to bladder damage and kidney (renal) failure. What are the causes? This condition is part of a normal aging process. However, not all men develop problems from this condition. If the prostate enlarges away from the urethra, urine flow will not be blocked. If it enlarges toward the urethra and compresses it, there will be problems passing urine. What increases the risk? This condition is more likely to develop in men over the age of 50 years. What are the signs or symptoms? Symptoms of this condition include: Getting up often during the night to urinate. Needing to urinate frequently during the day. Difficulty starting urine flow. Decrease in size and strength of your urine stream. Leaking (dribbling) after urinating. Inability to pass urine. This needs immediate treatment. Inability to completely empty your bladder. Pain when you pass urine. This is more common if there is also an infection. Urinary tract infection (UTI). How is this diagnosed? This condition is diagnosed based on your medical history, a physical exam, and your symptoms. Tests will also be done, such as: A post-void bladder scan. This measures any amount of urine that may remain in your bladder after you finish urinating. A digital rectal exam. In a rectal exam, your health care provider checks your prostate by putting a lubricated, gloved finger into your rectum to feel the back of your prostate gland. This exam detects the size of your gland and any abnormal lumps or growths. An exam of your urine (urinalysis). A prostate specific antigen (PSA) screening. This is a blood test used to screen for prostate cancer. An ultrasound. This test uses sound waves to electronically produce a picture of your prostate gland. Your health care provider may refer you to a specialist in kidney and prostate diseases (urologist). How is this treated? Once symptoms begin, your health care provider will monitor your condition (active surveillance or watchful waiting). Treatment for this condition will depend on the severity of your condition. Treatment may include: Observation and yearly exams. This may be the only treatment needed if your condition and symptoms are mild. Medicines to relieve your symptoms, including: ?Medicines to shrink the prostate. ?Medicines to relax the muscle of the prostate. Surgery in severe cases. Surgery may include: ?Prostatectomy. In this procedure, the prostate tissue is removed completely through an open incision or with a laparoscope or robotics. ?Transurethral resection of the prostate (TURP). In this procedure, a tool is inserted through the opening at the tip of the penis (urethra). It is used to cut away tissue of the inner core of the prostate. The pieces are removed through the same opening of the penis. This removes the blockage. ?Transurethral incision (TUIP). In this procedure, small cuts are made in the prostate. This lessens the prostate's pressure on the urethra. ?Transurethral microwave thermotherapy (TUMT). This procedure uses microwaves to create heat. The heat destroys and removes a small amount of prostate tissue. ?Transurethral needle ablation (TUNA). This procedure uses radio frequencies to destroy and remove a small amount of prostate tissue. ?Interstitial laser coagulation (ILC). This procedure uses a laser to destroy and remove a small amount of prostate tissue. ?Transurethral electrovaporization (TUVP). This procedure uses electrodes to destroy and remove a small amount of prostate tissue. ?Prostatic urethral lift. This procedure inserts an implant to push the lobes of the prostate away from the urethra. Follow these instructions at home: Take [id number] and prescription medicines only as told by your health care provider. Monitor your symptoms for any changes. Contact your health care provider with any changes. Avoid drinking large amounts of liquid before going to bed or out in public. Avoid or reduce how much caffeine or alcohol you drink. Give yourself time when you urinate. Keep all follow-up visits as told by your health care provider. This is important. Contact a health care provider if: You have unexplained back pain. Your symptoms do not get better with treatment. You develop side effects from the medicine you are taking. Your urine becomes very dark or has a bad smell. Your lower abdomen becomes distended and you have trouble passing your urine. Get help right away if: You have a fever or chills. You suddenly cannot urinate. You feel lightheaded, or very dizzy, or you faint. There are large amounts of blood or clots in the urine. Your urinary problems become hard to manage. You develop moderate to severe low back or flank pain. The flank is the side of your body between the ribs and the hip. These symptoms may represent a serious problem that is an emergency. Do not wait to see if the symptoms will go away. Get medical help right away. Call your local emergency services (911 in the [place] Do not drive yourself to the hospital. Summary Benign prostatic hyperplasia (BPH) is an enlarged prostate that is caused by the normal aging process and not by cancer. An enlarged prostate can press on the urethra. This can make it hard to pass urine. This condition is part of a normal aging process and is more likely to develop in men over the age of 50 years. Get help right away if you suddenly cannot urinate. This information is not intended to replace advice given to you by your health care provider. Make sure you discuss any questions you have with your health care provider. Document Released: 04/03/2006 Document Revised: 02/26/2019 Document Reviewed: 05/08/2017 [employer] Patient Education 2020 [employer] Follow Up Care 11/09/2021 10:07:55 With:LEONARDA FRANK, BEBA Blanc Address: [facility] [address] , [place] [id number]- [phone] When:01/18/2024 Comments:[facility] 01-17-2022 Evaluation + Plan note Diagnostic Tests PendingPSA Total 01/17/22 [facility] 06-01-2021 Note PROCEDURE: PostRank VCT 64, 5.0 mm slice axial images were acquire with coronal reconstruction through chest without contrast. HISTORY: COVID x 10 months, persistent cough FINDINGS: No suspicious lung nodule, mass or significant parenchymal consolidation. Mildly prominent subpleural bands right greater than left. No pleural or pericardial effusions. No significant mediastinal or hilar lymphadenopathy. Coronary arterial stents, sternotomy wires. Upper abdominal images demonstrate extensive cyst formation within the liver and visualized kidney consistent with polycystic renal disease with hepatic involvement. No ascites. IMPRESSION: 1. Subpleural bands/scarring, right greater than left consistent with post-inflammatory sequela, location of which consistent with COVID. 2. No suspicious nodule, mass or parenchymal consolidation. 3. Polycystic liver, kidneys. Report reported and signed by Anjum Remy on 06/01/2021 1051 [facility] Personal Service Representative 12-05-2020 Note MR#: [id number] [facility] Pt. Name: Vishal Duke Admitted: 12/02/2020 Discharged: 12/04/2020 Date of : 1960 Physician: Yonas Herrera MD DISCHARGE SUMMARY FINAL DIAGNOSES: 1. Presentation with left flank pain, related to ruptured renal cyst with history of polycystic kidney disease and recurrent ruptures of renal cyst. 2. Status post kidney transplant in 2018. 3. Coronary artery disease status post coronary artery bypass graft and subsequent percutaneous coronary intervention. 4. History of COVID pneumonia resulting in chronic hypoxia, on immunosuppressive therapy. 5. Hypertension. HISTORY OF PRESENT ILLNESS AND HOSPITALIZATION COURSE: The patient is a 59-year-old male. He presented as a direct admit from Urology office due to left-sided flank pain. The patient had CT scan which showed innumerable cysts involving both kidneys. A cyst along the ventral aspect of the left kidney has developed significantly more dependent lobular high attenuation suggesting possible cyst hemorrhage. This will explain the etiology of the patient's pain. The patient was admitted to the medical floor. He was seen by Urology, Nephrology, and Cardiology Services. Urology Service recommended no surgical intervention and the patient was continued on IV fluids and his pain was managed accordingly with pain control regimen. The patient was seen by Nephrology service who were adjusting his immunosuppressive medications. The patient was seen by Cardiology Services given his history of CAD, status post CABG with history of subsequent PCIs. The patient follows up regularly with Dr. Chester. They recommended for the time being that the patient can be off Prasugrel. The patient was educated about that. The patient will address being restarted on Prasugrel upon followup with Dr. Chester. The patient was discharged home in a stable condition on December 04, 2020. He was educated that he will need to seek medical attention if he develop any chest pain, shortness of breath, recurrent of his abdominal pain. He was advised that he will need to keep his appointment with Urology, Cardiology and Nephrology services. MEDICATIONS ON DISCHARGE: As per the medication reconciliation list. Time of discharge 37 minutes. Electronically Signed by: Yonas Herrera MD 12/06/2020 01:51 P __ Yonas Herrera MD Date Dict: 12/04/2020/04:32 P/Yonas Herrera MD Date Trans: 12/05/2020 05:37 A/patrizia [id number] cc: Rosa M Gonzales M.D. [address] [place] [id number] [facility] 12-02-2020 Note MR#: [id number] [facility] Pt. Name: Vishal Duke Date of Service: 12/02/2020 Room #: 4CD [id number] Birthdate: 1960 Referring Physician: CONSULTATION Reason for consult: Ruptured renal cyst HPI: This is a 59-year-old male with past medical history extensive cardiac history including CABG, stents x4 including 2 placed 1 month ago, and end-stage renal disease secondary to polycystic kidney disease status post donor renal transplant to the right iliac fossa on 08/15/[address] Torin Marquez. He presents today as a direct admit for ruptured renal cyst on the left. Patient initially presented to the ED yesterday with severe 10 out of 10 abrupt left-sided pain. CT abdomen pelvis with contrast was obtained and demonstrated possible left renal cyst hemorrhage. Hemoglobin at the time was 15.5. Patient denies any fevers or chills leading up to this event or during this event. Some nausea with pain onset and vomiting last night. He denies any gross hematuria, dysuria, urgency, or frequency. He has been urinating without difficulty normal amounts. Prior to the pain onset he was eating well, having regular bowel movements, doing daily activities of life without issues. He states that he had Covid pneumonia in July earlier this year which required a 17-day hospital admission and during which he sustained a myocardial infarction. He underwent cardiac catheterization with 2 stent placements. He has been on prasugrel 10 mg and aspirin 81 mg for several years now, neither of these medications were changed following his cardiac catheterization. Upon presentation patient is afebrile, blood pressure is stable. He admits to 10 out of 10 left flank pain while sitting in chair. Past medical history: End-stage renal disease, polycystic kidney disease, gout, GERD, hypertension, CAD status post OH and 2 stents, HLD, Covid pneumonia Past surgical history: AV fistula left arm, cardiac catheterization 10/29/2020, renal transplant 2017, cardiac catheterization 2016 with 2 stent placements, prior intraperitoneal dialysis catheter, cardiac catheterization in 2015, colonoscopy, cardiac catheterization 2008, CABG times 06/2008 Allergies: NKDA Medications: Please see chart, on prasugrel 10 mg and aspirin 81 mg, immunosuppression regimen: Tacrolimus 1.5 mg twice daily, Myfortic 360 mg twice daily, prednisone 5 mg daily ROS: 14 point review of systems negative except for as described above in the HPI Objective: Vitals: Temperature 98.7 F, respirations 18, blood pressure 113/65, heart rate 70, 95% on room air oxygen saturation Pertinent labs: WBC 13.96, hemoglobin 14.1, creatinine 1.12 Physical exam: General appearance: No acute distress, sitting comfortably in chair HEENT: Normocephalic, atraumatic Cardiovascular: Pulses palpable upper and lower extremities bilaterally, acyanotic Respiratory: Nonlabored breathing on room air Abdomen: Distended, bilateral large kidneys palpated, moderate left abdominal pain to palpation, no signs of peritonitis, surgical scar in the right lower quadrant intact and fully healed : No suprapubic tenderness, moderate left flank pain, no right flank pain Skin: Warm and dry Psych: Normal mood and mentation Assessment: This is a 59-year-old male with extensive cardiac history and end-stage renal disease secondary to polycystic kidney disease status post donor renal transplant to the right iliac fossa on 08/15/[address] Torin Marquez who presents for complaints of severe left flank pain secondary to ruptured left renal cyst Plan: IV hydration Immunosuppression regimen: Tacrolimus 1.5 mg twice daily, Myfortic 360 mg twice daily, prednisone 5 mg daily Monitor urine output, trend creatinine, 1.12 at choco Trend hemoglobin, currently 14.1 from 15.5 yesterday Consult cardiology for cardiac history Consult nephrology for management of renal function Pain and nausea control as needed DVT prophylaxis: SCDs, on prasugrel and aspirin Electronically Signed by: Rafael Agee MD 12/14/2020 04:14 P Rafael Agee MD I personally saw this patient on the day of the encounter, performed the bruce portion(s) of the service and participated in the management and confirm the resident's documentation. Please note there may be an additional personal documentation from me. Date Dict: 12/02/2020/05:52 P/Angie Watkins, DO Date Trans: 12/02/2020 05:52 P/ [id number] cc: Rosa M Gonzales M.D. [address] [facility] [id number] [facility] 08-20-2020 Note MR#: [id number] [facility] Pt. Name: Vishal Duke Admitted: 08/02/2020 Discharged: 08/19/2020 Date of : 1960 Physician: Juan Ferreira M.D. DISCHARGE SUMMARY PRIMARY DIAGNOSES: 1. Acute hypoxic respiratory failure secondary to COVID-19 viral pneumonia. 2. Non-ST segment myocardial infarction. 3. Hyponatremia. SECONDARY DIAGNOSES: 1. Polycystic kidney disease, status post renal transplant. 2. Coronary artery disease, status post coronary artery bypass graft. 3. Recent right cataract surgery. 4. Hypertension. 5. Hyperlipidemia. 6. Gastroesophageal reflux disease. 7. Peripheral vascular disease. HISTORY OF PRESENT ILLNESS AND HOSPITAL COURSE: The patient is a 59-year-old male with a past medical history of CAD, status post CABG and PCI, PCKD, status post renal transplant, who presented with COVID. The patient is on immunosuppression for kidney transplant in 2018. He received his Moderna vaccine x2 in June. The patient's son and [id number] were symptomatic just before him. The patient was complaining of fatigue and mild body aches. The patient also developed cough and mild shortness of breath. His dyspnea was initially with exertion, but progressed to minimal activity. After he spoke with his superintendent, he decreased his Myfortic dose and received bamlanivimab on , July 30, 2020. Later on, the patient was not able to catch his breath. His family member checked his pulse ox and his oxygen saturation was in the 60s. The patient was taken to an outside hospital and was placed on a BiPAP. His O2 saturation improved in the high 90s on BiPAP. CTA was done, which showed bilateral pulmonary infiltrates that was consistent with COVID-19 viral pneumonia. His procalcitonin was 0.42. Creatinine was 1.53. The patient was also complaining of intermittent fevers, decreased appetite and diarrhea. The patient denied chest pain or palpitations. 1. Acute hypoxic respiratory failure secondary to COVID-19 viral pneumonia. The patient was started on IV Decadron 6 mg daily. The patient was not a candidate for Remdesivir due to chronic kidney disease with a history of kidney transplant. Myfortic was discontinued. Tacrolimus was decreased to 0.5 mg b.i.d. and the patient was started on prednisone 10 mg b.i.d. His oxygenation was slowly improving. Prior to discharge, the patient remained stable on 4 L of oxygen nasal cannula. Home oxygen evaluation was done and the patient qualified for 4 L of oxygen nasal cannula continuous with portability. 2. NSTEMI with a history of CAD and CABG: The patient was started on ACS protocol including aspirin, Effient, pravastatin and metoprolol. The patient also received heparin for 48 hours. Cardiology was consulted and recommended to continue medical therapy. Left heart catheterization can be done as an outpatient. DISCHARGE CONDITION: Stable. DISCHARGE DISPOSITION: Home. DISCHARGE INSTRUCTIONS: 1. Continue tacrolimus 0.5 mg b.i.d. and prednisone 10 mg daily. Stop Myfortic. Please follow up with Nephrology Clinic as an outpatient. 2. Please follow up with Pulmonary Clinic as an outpatient. 3. Please follow up with Cardiology Clinic as an outpatient. DISCHARGE MEDICATIONS: Medications as per med reconciliation list. PHYSICAL EXAMINATION UPON DISCHARGE: GENERAL: No acute distress. LUNGS: Bilateral air entry. CARDIOVASCULAR: Normal S1/S2. ABDOMEN: Soft, nontender, nondistended. TIME SPENT: Total time of discharge 40 minutes. Electronically Signed by: Juan Ferreira M.D. 08/24/2020 03:34 P __ Juan Ferreira M.D. Date Dict: 08/19/2020/01:33 P/Juan Ferreira M.D. Date Trans: 08/20/2020 05:24 A/patrizia [id number]:[id number] cc: Rosa M Gonzales M.D. [address] [place] [address] [facility] [id number] [facility] History of Present illness Narrative Patient is seen in follow-up of recent hospitalization. He presented there with cardiac arrest. For that he underwent pacemaker defibrillator implantation and did well. Since that time he said no angina CHF or arrhythmia symptomatology. Treatment of his risk factors including his lipids and blood pressure is reviewed and felt to be adequate and appropriateFollowing discharge he saw his regular Gunn by his aircraft power plant assembler to agreed with and endorsed the care we rendered. The device was interrogated it in their office and it appears to be functioning appropriately. Because of all the above he is pleased with his care. He'll be following up henceforth with the [place] aircraft power plant assembler and we advised him were always happy to participate in his care if he needs help. I believe his ICD will be interrogated and managed through their office. We also note that his renal transplant was not injured as a result of the hospitalization and contrast administration and/or antibiotic therapy because of this he is pleased. [facility] [address] DO Work Phone: Hospital course Narrative No data available for this section [facility] Progress note No data available for this section [facility] Chief Complaint VISHAL DUKE is being seen for follow-up of a hospitalization for [facility] D/C 12/11/2020 ICD insert. Family History No Family History Records FoundUnknown Family Member Name Dates Details Family history of cardiac pa cemaker: Mother(V17.49, Z82.49) Status:Active Polycystic kidney disease: S ibling Status:Active Summary Purpose Advance Directives No Advanced Directives Records FoundNo Advanced Directives Records FoundNo Advanced Directives Records FoundNo Advanced Directives Records FoundNo Advanced Directives Records FoundNo Advanced Directives Records FoundNo Advanced Directives Records Found Additional Source Comments (unrecognized sect ion and content) No Status Records FoundNo Status Records FoundNo Status Records FoundNo Status Records FoundNo Status Records FoundNo Status Records FoundNo Status Records Found INFORMATION SOURCE (unrecogn ized section and content) DATE CREATED AUTHOR 04/25/2021 [facility] DATE CREATED AUTHOR AUTHOR'S ORGANIZ ATION 05/10/2021 [facility] DATE CREATED AUTHOR AUTHOR'S ORGANIZ ATION 07/18/2021 [facility] DATE CREATED AUTHOR AUTHOR'S ORGANIZ ATION 01/17/2022 [facility] DATE CREATED AUTHOR AUTHOR'S ORGANIZ ATION 08/25/2022 [facility] DATE CREATED AUTHOR AUTHOR'S ORGANIZ ATION 02/03/2023 [facility] DATE CREATED AUTHOR AUTHOR'S ORGANIZ ATION 04/02/2023 [facility] Team (unrecognized sect ion and content) Personnel Name: ROSA M GONZALES MD Address: [address] [place] [id number] FOR RECORDS PERTAINING TO PATIENTS WHO ARE OR HAVE BEEN ENROLLED IN A CHEMICAL DEPENDENCY/SUBSTANCEABUSE PROGRAM, SOME INFORMATION MAY BE OMITTED. This clinical summary was aggregated from multiple sources. Caution should be exercised in using it in the provision of clinical care. This summary normalizes information from multiple sources, and as a consequence, information in this document may materially change the coding, format and clinical context of patient data. In addition, data may be omitted in some cases. CLINICAL DECISIONS SHOULD BE BASED ON THE PRIMARY CLINICAL RECORDS. [email or web address] [facility]. provides no warranty or guarantee of the accuracy or completeness of information in this document.
[2023-04-26 10:17] LABS: Estimated Average Glucose 137 mg/dL; Glycohemoglobin A1C 6.4 % (4.5-6.2)
[2023-04-26 10:44] LABS: Basophils Absolute Auto 0.1 10^3/uL (0.0-0.1); Basophils Percent Auto 0.7 % (0.2-2.0); Eosinophils Absolute Auto 0.1 10^3/uL (0.0-0.7); Eosinophils Percent Auto 1.9 % (0.9-7.0); Hematocrit 47.8 % (42.0-54.0); Hemoglobin 15.4 g/dL (14.0-18.0); Immature Granulocytes Abs Auto 0.05 10^3/uL (0.00-0.03); Immature Granulocytes Pct Auto 0.7 % (0.0-0.5); Lymphocytes Absolute Auto 1.2 10^3/uL (1.2-3.8); Lymphocytes Percent Auto 15.7 % (20.5-60.0); Mean Corpuscular HGB Conc 32.2 g/dL (29.9-35.2); Mean Corpuscular Hemoglobin 29.3 pg (25.9-34.0); Monocytes Absolute Auto 0.8 10^3/uL (0.3-0.8); Monocytes Percent Auto 10.6 % (1.7-12.0); Neutrophils Absolute Auto 5.2 10^3/uL (1.4-6.5); Neutrophils Percent Auto 70.4 % (43.0-75.0); Platelet Count 237 10^3/uL (150-450); Red Blood Count 5.25 10^6/uL (4.70-6.10); Red Cell Distribution Width 14.6 % (11.0-15.0); White Blood Count 7.4 10^3/uL (4.0-11.0)
[2023-04-26 10:57] LABS: Alanine Aminotransferase 36 U/L (16-63); Albumin Globulin Ratio 1.2; Albumin Level 3.7 g/dL (3.4-5.0); Alkaline Phosphatase 99 U/L (46-116); Anion Gap 10.6; Aspartate Amino Transferase 18 U/L (15-37); BUN Creatinine Ratio 17.7; Bilirubin Direct 0.2 mg/dL (0.0-0.2); Bilirubin Total 0.8 mg/dL (0.2-1.0); Calcium 9.3 mg/dL (8.5-10.1); Carbon Dioxide 28.6 mmol/L (21.0-32.0); Chloride 104 mmol/L (98-107); Chol HDL Ratio 2.7; Cholesterol 124 mg/dL (<=200); Estimated GFR (African America >60 (>=60); Estimated GFR (Non-African Ame 56 (>=60); Globulin 3.2 g/dL; Glucose 135 mg/dL (74-106); HDL Cholesterol 46 mg/dL (40-60); LDL Cholesterol Calculated 50.6 mg/dL; Magnesium 1.6 mg/dL (1.8-2.4); Phosphorus 3.6 mg/dL (2.6-4.7); Potassium 4.2 mmol/L (3.5-5.1); Sodium 139 mmol/L (136-145); Total Protein 6.9 g/dL (6.4-8.2); Triglycerides 137 mg/dL (<=150); Uric Acid 5.8 mg/dL (3.5-7.2); VLDL CHOLESTEROL 27.4 mg/dL
[2023-04-29 15:31] LABS: Tacrolimus (FK506), Blood 8.5 ng/mL (2.0-20.0)
[2023-05-05 02:07] LABS: Free Testosterone(Direct) 3.6 pg/mL (6.6-18.1); Testosterone 291 ng/dL (264-916)
== END 2023-04-26 09:30 | disposition home or self-care (01) ==
LOC: LAB 09:32
PROVIDERS: PCP Family Medicine
DX: Z94.0 Kidney transplant status (principal)
CPT/HCPCS: 36415; 80053; 80061; 80197; 82248; 83036; 83735; 84100; 84402; 84403; 84550; 85025

== ENCOUNTER 2023-05-29 09:57 | Outpatient (OUT) | payer MEDICARE, SELFPAY ==
--- OUTSIDE RECORDS SUMMARY | 2023-05-29 10:04 | XMS_ITS | CCD ---
Author Name Unknown Address [address] [place] [address] Organization [facility] Care Team Providers Care Service Engine Repairer Name Role Phone Rosa M Gonzales Unavailable [phone] Unavailable Unavailable YONAS HERRERA Surgeon Unavailable [place] Procedure Practitioner Unavailab YONAS Hsieh Attending Unavailable [...] Primary Care Unavailable YOJANA MCDANIELS Surgeon Unavailable [place] Procedure Practitioner Unavailab prabhakar MACDONALD, REFERRED Referring Unavailable ROSA M GONZALES Primary Care Unavailable DERICK VIDAL Attending Unavailable DERICK VIDAL Admitting Unavailable ROSA M GONZALES Primary Care Physician STEPHANIE, DR LAYTON Consulting Unavailable [place], DR [...] Unavailable JANET, DR DUVAL Primary Care Unavailable [place], DR AIME Arnold Consulting Unavailable [place], DR [...] Care Unavailable MISC, DR PEDERSEN Admitting Unavailable Sarmini, Xochilt Butler Attending Unavaila rio ADAME, ALICIA Seo Attending Unavailable AHMAD, RAMI Attending Unavailable EKWENNA, OBI Admitting Unavailable EKWENNA, OBI Attending Unavailable HENRY, SHAUN Referring Unavailable EKWENNA, OBI Referring Unavailable SAFI, SHARLA Referring Unavailable CRISENYARELY, PETEY Attending Unavailable EKWENNA, OBI Attending Unavailable TEAGAN VILLANUEVA Referring Unavailable EKWENNA, OBI Attending Unavailable AL-TKRIT, KELVIN Attending Unavailable CRISENBERPETEY Newman Attending Unavailable EKWENNA, OBI Attending Unavailable EKWENNA, OBI Attending Unavailable SAFI, SHARLA Referring Unavailable [place], FEDERICO Attending Unavailable TEAGAN VILLANUEVA Referring Unavailable Allergies Allergy Classification Reported Allergen(s) Allergy Type Date of Onset Reaction(s) Facility (1 source) 73857,00; Translations: [87238,00] Propensity to adverse reactions (disorder) 9 [facility] Repository (1 source) Cephalexin; Translations: [Keflex] Drug Allergy [facility] Repository Medications Current Medications Medication Drug [...] [Automatic implantable cardiac defibrillator in situ] Onset: 4 Chronic Congestive heart failure; nonhypertensive (4 sources) Heart failure, unspecified; Translations: [Chronic systolic (congestive) heart failure] Onset: 3 Chronic Coronary atherosclerosis and other heart disease (10 sources) Coronary atherosclerosis; Translations: [Coronary atherosclerosis of [place] coronary artery] Onset: 2 Chronic Deficiency and [...] failure with hypoxia] Onset: 3 Chronic Unclassified (2 sources) Kidney Follow-up; Translations: [Kidney Follow-up] Onset: 4 Unclassified (1 source) Personal history of COVID-19; Translations: [Personal history of COVID-19] Onset: 3 Unclassified (1 source) Post covid-19 condition, unspecified; Translations: [Post covid-19 condition, unspecified] Onset: Past or Other Problems Problem Classification Problem [...] Value Interpretation Reference Range Facility BILIRUBIN, DIRECTon 05-18-19 24 Magnesium [Mass/Vol] 0.2 mg/dL Normal 0-0.2 [facility] Comment on above: Performed By: #### L [id number] #### [facility] (BEAK[facility]) [address] [place] [address] CBC WITH AUTO DIFFERENTIALon 05-18-2023 Basophils (Bld) [#/Vol] 0.05 10*3/uL Normal 0.00-0.20 [facility] Comment on above: Performed By: #### L [id number] #### [facility] ([facility]) [address] [place] [address] Basophils/100 WBC (Bld) 0.6 % Normal 0.0-1.0 [facility] Comment on above: Performed By: #### L [id number] #### [facility] ([facility]) [address] [place] [address] Eosinophils (Bld) [#/Vol] 0.12 10*3/uL Normal 0.00-0.50 [facility] Comment on above: Performed By: #### L [id number] #### [facility] ([facility]) [address] [place] [address] Eosinophils/100 WBC (Bld) 1.4 % Normal 0.0-6.0 [facility] Comment on above: Performed By: #### L [id number] #### [facility] ([facility] [address] [place] [address] Erythrocyte distribution width (RBC) [Ratio] 14.9 % Normal 11.5-15.0 [facility] Comment on above: Performed By: #### L [id number] #### [facility] ([facility]) [address] [place] [address] ERYTHROCYTE MEAN CORPUSCULAR HEMOGLOBIN CONCENTRATION (G/DL) BY AUTOMATED 33.4 g/dL Normal 32.0-35.0 [facility] Comment on above: Performed By: #### L [id number] #### [facility] ([facility]) [address] [place] [address] Hematocrit (Bld) [Volume fraction] 48.5 % Normal 39.0-55.0 [facility] Comment on above: Performed By: #### L [id number] #### [facility] ([facility]) [address] [place] [address] Hemoglobin (Bld) [Mass/Vol] 16.2 g/dL Normal 13.0-17.0 [facility] Comment on above: Performed By: #### L [id number] #### [facility] ([facility]) [address] [place] [address] Immature granulocytes (Bld) [#/Vol] 0.07 10*3/uL Normal 0.00-0.20 [facility] Comment on above: Performed By: #### L [id number] #### [facility] ([facility]) [address] [place] [address] Immature granulocytes/100 WBC (Bld) 0.8 % Normal 0.0-1.0 [facility] Comment on above: Performed By: #### L [id number] #### [facility] ([facility]) [address] [place] [address] Lymphocytes (Bld) [#/Vol] 1.06 10*3/uL Low 1.20-4.00 [facility] Comment on above: Performed By: #### L [id number] #### [facility] ([facility]) [address] [place] [address] Lymphocytes/100 WBC (Bld) 12.3 % Low 20.0-45.0 [facility] Comment on above: Performed By: #### L [id number] #### [facility] ([facility]) [address] [place] [address] MCH (RBC) [Entitic mass] 29.9 pg Normal 27.0-33.0 [facility] Comment on above: Performed By: #### L [id number] #### [facility] ([facility]) [address] [place] [address] MCV (RBC) [Entitic vol] 89.6 fL Normal 82.0-98.0 [facility] Comment on above: Performed By: #### L [id number] #### [facility] ([facility]) [address] [place] [address] Monocytes (Bld) [#/Vol] 0.68 10*3/uL Normal 0.10-1.00 [facility] Comment on above: Performed By: #### L [id number] #### [facility] ([facility]) [address] [place] [address] Monocytes/100 WBC (Bld) 7.9 % Normal 5.0-12.0 [facility] Comment on above: Performed By: #### L [id number] #### [facility] ([facility]) [address] [place] [address] Neutrophils (Bld) [#/Vol] 6.61 10*3/uL Normal 1.60-7.60 [facility] Comment on above: Performed By: #### L [id number] #### [facility] ([facility]) [address] [place] [address] Neutrophils/100 WBC (Bld) 77.0 % High 40.0-72.0 [facility] Comment on above: Performed By: #### L [id number] #### [facility] ([facility]) [address] [place] [address] NRBC (PER 100 WBCS) BY AUTOMATED COUNT 0.0 % Normal 0 [facility] Comment on above: Performed By: #### L [id number] #### [facility] ([facility]) [address] [place] [address] PLATELETS (10*3/UL) IN BLOOD AUTOMATED COUNT 254 10*3/uL Normal 150-400 [facility] Comment on above: Performed By: #### L [id number] #### [facility] ([facility]) [address] [place] [address] RBC (Bld) [#/Vol] 5.41 10*6/uL Normal 4.20-5.70 [facility] Comment on above: Performed By: #### L [id number] #### [facility] ([facility]) [address] [place] [address] WBC (Bld) [#/Vol] 8.59 10*3/uL Normal 4.00-10.60 [facility] Comment on above: Performed By: #### L [id number] #### [facility] ([facility]) [address] [place] [address] COMPREHENSIVE METABOLIC PANE Nitin 05-18-2023 Albumin [Mass/Vol] 4.5 g/dL Normal 3.5-5.7 [facility] Comment on above: Performed By: #### L [id number] #### [facility] ([facility]) [address] [place] [address] ALP [Catalytic activity/Vol] 78 U/L Normal 34-104 [facility] Comment on above: Performed By: #### L [id number] #### [facility] ([facility]ER) [address] [place] [address] ALT [Catalytic activity/Vol] 22 U/L Normal 7-52 [facility] Comment on above: Performed By: #### L [id number] #### [facility] ([facility]) [address] [place] [address] Anion gap [Moles/Vol] 12 mmol/L Normal 7-20 [facility] Comment on above: Performed By: #### L [id number] #### [facility] ([facility]) [address] [place] [address] AST [Catalytic activity/Vol] 17 U/L Normal 13-39 [facility] Comment on above: Performed By: #### L [id number] #### [facility] ([facility]) [address] [place] [address] Bilirubin [Mass/Vol] 0.8 mg/dL Normal 0.3-1.0 [facility] Comment on above: Performed By: #### L [id number] #### [facility] ([facility]) [address] [place] [address] Calcium [Mass/Vol] 9.4 mg/dL Normal 8.6-10.3 [facility] Comment on above: Performed By: #### L [id number] #### [facility] ([facility]) [address] [place] [address] Chloride [Moles/Vol] 101 mmol/L Normal 98-107 [facility] Comment on above: Performed By: #### L [id number] #### [facility] ([facility]) [address] [place] [address] CO2 [Moles/Vol] 26 mmol/L Normal 21-31 [facility] Comment on above: Performed By: #### L [id number] #### [facility] ([facility]) [address] [place] [address] Creatinine [Mass/Vol] 1.24 mg/dL Normal 0.70-1.30 [facility] Comment on above: Performed By: #### L [id number] #### [facility] ([facility]) [address] [place] [address] GLOMERULAR FILTRATION RATE ML/MIN/1.73 SQ M.PREDICTED 65.7 mL/min/1.73m*2 Normal >60.0 [facility] Comment on above: Result Comment: [facility]???s estimated glomerular filtration rate (eGFR) will no [...] individuals. Performed By: #### L [id number] #### [facility] ([facility]) [address] [place] [address] Glucose [Mass/Vol] 130 mg/dL High 70-100 [facility] Comment on above: Performed By: #### L [id number] #### [facility] ([facility]) [address] [place] [address] Potassium [Moles/Vol] 4.0 mmol/L Normal 3.5-5.1 [facility] Comment on above: Performed By: #### L [id number] #### [facility] ([facility]) [address] [place] [address] Protein [Mass/Vol] 6.8 g/dL Normal 6.0-8.3 [facility] Comment on above: Performed By: #### L [id number] #### [facility] ([facility]) [address] [place] [address] Sodium [Moles/Vol] 135 mmol/L Low 136-145 [facility] Comment on above: Performed By: #### L [id number] #### [facility] ([facility]) [address] [place] [address] Urea nitrogen [Mass/Vol] 24 mg/dL Normal 7-25 [facility] Comment on above: Performed By: #### L [id number] #### [facility] ([facility]) [address] [place] [address] UREA NITROGEN/CREATININE (MASS RATIO) IN SER/PLAS 19.4 Normal [facility] Comment on above: Performed By: #### L [id number] #### [facility] ([facility]) [address] [place] [address] Follow-Upon 05-18-2023 Follow-Up [id number] Vishal Duke 1960 M Date Provider Department Center 05/18/2023 263-JOEL OBI TXP None Family History Problem Relation Age of Onset Alzheimer's disease Mother Coronary artery disease Father Family Status - Relation Status Age at Mother Father Level of Service:[id number] [place] OFFICE/OUTPATIENT ESTABLISHED LOW MDM 20 MIN Reason for Visit and Comments: Kidney Follow-up [] - Patient has no major concerns today Normal [facility] HEMOGLOBIN A1Con 05-18-2023 Glucose [Mass/Vol] 137 mg/dL Normal [facility] Comment on above: Performed By: #### L [id number] #### [facility] ([facility]) [address] [place] [address] HbA1c (Bld) [Mass fraction] 6.4 % High 4.0-6.0 [facility] Comment on above: Performed By: #### L [id number] #### [facility] ([facility]) [address] [place] [address] LIPID PANELon 05-18-2023 CHOL/HDL 3.2 mg/dL Normal [facility] Comment on above: Performed By: #### L [id number] #### [facility] ([facility]) [address] [place] [address] Cholesterol [Mass/Vol] 120 mg/dL Normal 120-200 [facility] Comment on above: Performed By: #### L [id number] #### [facility] ([facility]) [address] [place] [address] Magnesium [Mass/Vol] 209 mg/dL High 40-149 [facility] Comment on above: Result Comment: TRIG LYCERIDE REFERENCE RANGE: 20 YEARS AND OLDER CARDIOVASCULAR RISK LESS THAN 150 mg/dL LOW RISK 150 TO 199 mg/dL BORDERLINE RISK 200 mg/dL AND GREATER HIGH RISK Performed By: #### L [id number] #### [facility] ([facility]) [address] [place] [address] Magnesium [Mass/Vol] 40 mg/dL Normal 0-160 [facility] Comment on above: Performed By: #### L [id number] #### [facility] ([facility]) [address] [place] [address] Magnesium [Mass/Vol] 38 mg/dL Normal 23-92 [facility] Comment on above: Performed By: #### L [id number] #### [facility] ([facility]) [address] [place] [address] NON HDL CHOL. (LDL+VLDL) 82 Normal [facility] Comment on above: Performed By: #### L [id number] #### [facility] ([facility]) [address] [place] [address] TOTAL VLDL-C 42 mg/dL High 0-40 [facility] Comment on above: Performed By: #### L [id number] #### [facility] ([facility]) [address] [place] [address] Labon 05-18-2023 Lab [id number] Vishal Duke 1960 M Date Provider Department Center 05/18/2023 25511-CNC DRAW STATION KXT Draw [facility] Family History Problem Relation Age of Onset Alzheimer's disease Mother Coronary artery disease Father Family Status - Relation Status Age at Mother Father Normal [facility] MAGNESIUMon 05-18-2023 Magnesium [Mass/Vol] 1.6 mg/dL Low 1.9-2.7 [facility] Comment on above: Performed By: #### L [id number] #### [facility] ([facility]) [address] [place] [address] Orders Onlyon 05-18-2023 Orders Only [id number] Vishal Duke 1960 M Date Provider Department Center 05/18/2023 1971-MAGALISFARRUKH GARCIA TXP None Family History Problem Relation Age of Onset Alzheimer's disease Mother Coronary artery disease Father Family Status - Relation Status Age at Mother Father Normal [facility] PHOSPHORUSon 05-18-2023 Magnesium [Mass/Vol] 3.5 mg/dL Normal 2.5-5.0 [facility] Comment on above: Performed By: #### L [id number] ####[facility] ([facility])[address] [place] [address] TACROLIMUS LEVELon Tacrolimus (Bld) [Mass/Vol] 11.6 ng/mL Normal 5.0-20.0 [facility] Comment on above: Result Comment: The [employer] Tacrolimus assay is a delayed one-step immunoassay for the quantitative determination of tacrolimus in human whole blood using the chemiluminescent microparticle immunoassay (CMIA) technology with flexible assay protocols, referred to as Chemiflex. Performed By: #### L [id number] #### [facility] ([facility]) [address] [place] [address] TESTOSTERONE, FREE AND TOTAL , AND SHBGon 05-18-2023 SEX HORMONE BINDING GLOBULIN (NMOL/L) IN SER/PLAS 28 nmol/L Normal 11-80 [facility] Comment on above: Performed By: #### L [id number] #### [facility] ([facility]) [address] [place] [address] TESTOSTERONE (NG/DL) IN SER/PLAS 319 ng/dL Normal 220-1000 [facility] Comment on above: Performed By: #### L [id number] #### [facility] ([facility]) [address] [place] [address] TESTOSTERONE FREE (NG/ML) IN SER/PLAS 69.3 pg/mL Normal 47-244 [facility] Comment on above: Result Comment: The concentration of free testosterone is derived from a mathematical expression based on the constant for the binding of testosterone to albumin and/or sex hormone binding globulin. Test Performed by [facility] [place] [address] - [place] 05/18/2023 15:33 Performed By: #### L [id number] #### [facility] ([facility]) [address] [place] [address] URIC ACIDon 05-18-2023 Magnesium [Mass/Vol] 5.1 mg/dL Normal 4.4-7.6 [facility] Comment on above: Performed By: #### L [id number] #### [facility] ([facility]) [address] [place] [address] BILIRUBIN, DIRECTon 03-28-20 Magnesium [Mass/Vol] 0.1 mg/dL Normal 0-0.2 [facility] Comment on above: Performed By: #### L [id number] #### [facility] ([facility]) [address] [place] [address] CBC WITH AUTO DIFFERENTIALon 03-28-2023 Basophils (Bld) [#/Vol] 0.08 10*3/uL Normal 0.00-0.20 [facility] Comment on above: Performed By: #### L [id number] #### [facility] ([facility]) [address] [place] [address] Basophils/100 WBC (Bld) 0.8 % Normal 0.0-1.0 [facility] Comment on above: Performed By: #### L [id number] #### [facility] ([facility]) [address] [place] [address] Eosinophils (Bld) [#/Vol] 0.17 10*3/uL Normal 0.00-0.50 [facility] Comment on above: Performed By: #### L [id number] #### [facility] ([facility]) [address] [place] [address] Eosinophils/100 WBC (Bld) 1.7 % Normal 0.0-6.0 [facility] Comment on above: Performed By: #### L [id number] #### [facility] ([facility]) [address] [place] [address] Erythrocyte distribution width (RBC) [Ratio] 14.8 % Normal 11.5-15.0 [facility] Comment on above: Performed By: #### L [id number] #### [facility] ([facility]) [address] [place] [address] ERYTHROCYTE MEAN CORPUSCULAR HEMOGLOBIN CONCENTRATION (G/DL) BY AUTOMATED 32.9 g/dL Normal 32.0-35.0 [facility] Comment on above: Performed By: #### L [id number] #### [facility] ([facility]) [address] [place] [address] Hematocrit (Bld) [Volume fraction] 49.3 % Normal 39.0-55.0 [facility] Comment on above: Performed By: #### L [id number] #### [facility] ([facility]) [address] [place] [address] Hemoglobin (Bld) [Mass/Vol] 16.2 g/dL Normal 13.0-17.0 [facility] Comment on above: Performed By: #### L [id number] #### [facility] ([facility]) [address] [place] [address] Immature granulocytes (Bld) [#/Vol] 0.07 10*3/uL Normal 0.00-0.20 [facility] Comment on above: Performed By: #### L [id number] #### [facility] ([facility]) [address] [place] [address] Immature granulocytes/100 WBC (Bld) 0.7 % Normal 0.0-1.0 [facility] Comment on above: Performed By: #### L [id number] #### [facility] ([facility]) [address] [place] [address] Lymphocytes (Bld) [#/Vol] 1.26 10*3/uL Normal 1.20-4.00 [facility] Comment on above: Performed By: #### L [id number] #### [facility] ([facility]) [address] [place] [address] Lymphocytes/100 WBC (Bld) 12.4 % Low 20.0-45.0 [facility] Comment on above: Performed By: #### L [id number] #### [facility] ([facility]) [address] [place] [address] MCH (RBC) [Entitic mass] 29.8 pg Normal 27.0-33.0 [facility] Comment on above: Performed By: #### L [id number] #### [facility] ([facility]) [address] [place] [address] MCV (RBC) [Entitic vol] 90.8 fL Normal 82.0-98.0 [facility] Comment on above: Performed By: #### L [id number] #### [facility] ([facility]) [address] [place] [address] Monocytes (Bld) [#/Vol] 0.94 10*3/uL Normal 0.10-1.00 [facility] Comment on above: Performed By: #### L [id number] #### [facility] ([facility]) [address] [place] [address] Monocytes/100 WBC (Bld) 9.2 % Normal 5.0-12.0 [facility] Comment on above: Performed By: #### L [id number] #### [facility] ([facility]) [address] [place] [address] Neutrophils (Bld) [#/Vol] 7.66 10*3/uL High 1.60-7.60 [facility] Comment on above: Performed By: #### L [id number] #### [facility] ([facility]) [address] [place] [address] Neutrophils/100 WBC (Bld) 75.2 % High 40.0-72.0 [facility] Comment on above: Performed By: #### L [id number] #### [facility] ([facility]) [address] [place] [address] NRBC (PER 100 WBCS) BY AUTOMATED COUNT 0.0 % Normal 0 [facility] Comment on above: Performed By: #### L [id number] #### [facility] ([facility]) [address] [place] [address] PLATELETS (10*3/UL) IN BLOOD AUTOMATED COUNT 276 10*3/uL Normal 150-400 [facility] Comment on above: Performed By: #### L [id number] #### [facility] ([facility]) [address] [place] [address] RBC (Bld) [#/Vol] 5.43 10*6/uL Normal 4.20-5.70 [facility] Comment on above: Performed By: #### L [id number] #### [facility] ([facility]) [address] [place] [address] WBC (Bld) [#/Vol] 10.18 10*3/uL Normal 4.00-10.60 [facility] Comment on above: Performed By: #### L [id number] #### [facility] ([facility]) [address] [place] [address] COMPREHENSIVE METABOLIC PANE Nitin 03-28-2023 Albumin [Mass/Vol] 4.7 g/dL Normal 3.5-5.7 [facility] Comment on above: Performed By: #### L [id number] ####[facility] ([facility])[address] [place] [address] ALP [Catalytic activity/Vol] 92 U/L Normal 34-104 [facility] Comment on above: Performed By: #### L [id number] ####[facility] ([facility])[address] [place] [address] ALT [Catalytic activity/Vol] 19 U/L Normal 7-52 [facility] Comment on above: Performed By: #### L [id number] ####[facility] ([facility])[address] [place] [address] Anion gap [Moles/Vol] 11 mmol/L Normal 7-20 [facility] Comment on above: Performed By: #### L [id number] ####[facility] ([facility])[address] [place] [address] AST [Catalytic activity/Vol] 17 U/L Normal 13-39 [facility] Comment on above: Performed By: #### L [id number] ####[facility] ([facility])[address] [place] [address] Bilirubin [Mass/Vol] 0.6 mg/dL Normal 0.3-1.0 [facility] Comment on above: Performed By: #### L [id number] ####[facility] ([facility])[address] [place] [address] Calcium [Mass/Vol] 9.9 mg/dL Normal 8.6-10.3 [facility] Comment on above: Performed By: #### L [id number] ####[facility] ([facility])[address] [place] [address] Chloride [Moles/Vol] 105 mmol/L Normal 98-107 [facility] Comment on above: Performed By: #### L [id number] ####[facility] ([facility])[address] [place] [address] CO2 [Moles/Vol] 27 mmol/L Normal 21-31 [facility] Comment on above: Performed By: #### L [id number] ####[facility] ([facility])[address] [place] [address] Creatinine [Mass/Vol] 1.21 mg/dL Normal 0.70-1.30 [facility] Comment on above: Performed By: #### L [id number] ####[facility] ([facility])[address] [place] [address] GLOMERULAR FILTRATION RATE ML/MIN/1.73 SQ M.PREDICTED 67.7 mL/min/1.73m*2 Normal >60.0 [facility] Comment on above: Result Comment: The [facility]???s estimated glomerular filtration rate (eGFR) will no [...] of individuals. Performed By: #### L [id number] ####[facility] ([facility])[address] [place] [address] Glucose [Mass/Vol] 136 mg/dL High 70-100 [facility] Comment on above: Performed By: #### L [id number] ####[facility] ([facility])[address] [place] [address] Potassium [Moles/Vol] 4.8 mmol/L Normal 3.5-5.1 [facility] Comment on above: Performed By: #### L [id number] ####[facility] ([facility])[address] [place] [address] Protein [Mass/Vol] 6.9 g/dL Normal 6.0-8.3 [facility] Comment on above: Performed By: #### L [id number] ####[facility] ([facility])[address] [place] [address] Sodium [Moles/Vol] 138 mmol/L Normal 136-145 [facility] Comment on above: Performed By: #### L [id number] ####[facility] ([facility])[address] [place] [address] Urea nitrogen [Mass/Vol] 20 mg/dL Normal 7-25 [facility] Comment on above: Performed By: #### L [id number] ####[facility] ([facility])[address] [place] [address] UREA NITROGEN/CREATININE (MASS RATIO) IN SER/PLAS 16.5 Normal [facility] Comment on above: Performed By: #### L [id number] ####[facility] ([facility])[address] [facility] [address] Follow-Upon 03-28-2023 Follow-Up [id number] ZuleikaVishal Waldemar 1960 M Date Provider Department Center 03/28/2023 124-PETEY REDDING TXHumberto None Family History Problem Relation Age of Onset Alzheimer's disease Mother Coronary artery disease Father Family Status - Relation Status Age at Mother Father Level of Service:29865 [place] OFFICE/OUTPATIENT ESTABLISHED MOD MDM 30-39 MIN Reason for Visit and Comments: Kidney Follow-up [] - Patient have no concerns Normal [facility] LIPID PANELon 03-28-2023 CHOL/HDL 2.8 mg/dL Normal [facility] Comment on above: Performed By: #### L [id number] #### [facility] ([facility]) [address] [facility] [address] Cholesterol [Mass/Vol] 125 mg/dL Normal 120-200 [facility] Comment on above: Performed By: #### L [id number] #### [facility] ([facility]) [address] [place] [address] Magnesium [Mass/Vol] 157 mg/dL High 40-149 [facility] Comment on above: Result Comment: TRIG LYCERIDE REFERENCE RANGE: 20 YEARS AND OLDER CARDIOVASCULAR RISK LESS THAN 150 mg/dL LOW RISK 150 TO 199 mg/dL BORDERLINE RISK 200 mg/dL AND GREATER HIGH RISK Performed By: #### L [id number] #### [facility] ([facility]) [address] [place] [address] Magnesium [Mass/Vol] 49 mg/dL Normal 0-160 [facility] Comment on above: Performed By: #### L [id number] #### [facility] ([facility]) [address] [place] [address] Magnesium [Mass/Vol] 45 mg/dL Normal 23-92 [facility] Comment on above: Performed By: #### L [id number] #### [facility] ([facility]) [address] [place] [address] NON HDL CHOL. (LDL+VLDL) 80 Normal [facility] Comment on above: Performed By: #### L [id number] #### [facility] ([facility]) [address] [place] [address] TOTAL VLDL-C 31 mg/dL Normal 0-40 [facility] Comment on above: Performed By: #### L [id number] #### [facility] ([facility]) [address] [place] [address] Labon 03-28-2023 Lab [id number] Vishal Duke 1960 M Date Provider Department Rake 03/28/2023 [id number]-WXO DRAW STATION KXT Draw [facility] Family History Problem Relation Age of Onset Alzheimer's disease Mother Coronary artery disease Father Family Status - Relation Status Age at Mother Father Normal [facility] MAGNESIUMon 03-28-2023 Magnesium [Mass/Vol] 1.5 mg/dL Low 1.9-2.7 [facility] Comment on above: Performed By: #### L [id number] ####[facility] ([facility])[address] [place] [address] PHOSPHORUSon 03-28-2023 Magnesium [Mass/Vol] 3.6 mg/dL Normal 2.5-5.0 [facility] Comment on above: Performed By: #### L [id number] #### [facility] ([facility]) [address] [place] [address] TACROLIMUS LEVELon Tacrolimus (Bld) [Mass/Vol] 9.6 ng/mL Normal 5.0-20.0 [facility] Comment on above: Result Comment: The [employer] Tacrolimus assay is a delayed one-step immunoassay for the quantitative determination of tacrolimus in human whole blood using the chemiluminescent microparticle immunoassay (CMIA) technology with flexible assay protocols, referred to as Chemiflex. Performed By: #### L [id number] #### [facility] ([facility]) [address] [place] [address] URIC ACIDon 03-28-2023 Magnesium [Mass/Vol] 5.2 mg/dL Normal 4.4-7.6 [facility] Comment on above: Performed By: #### L [id number] #### [facility] ([facility]) [address] [place] [address] Orders Onlyon 03-08-2023 Orders Only [id number] Juan Diego Dukeren Waldemar 1960 M Date Provider Department Center 03/08/2023 1971-FARRUKH BLANCAS TXP None Family History Problem Relation Age of Onset Alzheimer's disease Mother Coronary artery disease Father Family Status - Relation Status Age at Mother Father Normal [facility] BILIRUBIN, DIRECTon 02-10-20 Magnesium [Mass/Vol] 0.1 mg/dL Normal 0-0.2 [facility] Comment on above: Performed By: #### L [id number] #### [facility] ([facility]) [address] [place] [address] CBC WITH AUTO DIFFERENTIALon 02-09-2023 Basophils (Bld) [#/Vol] 0.10 10*3/uL Normal 0.00-0.20 [facility] Comment on above: Performed By: #### L [id number] ####[facility] ([facility])[address] [place] [address] Basophils/100 WBC (Bld) 1.0 % Normal 0.0-1.0 [facility] Comment on above: Performed By: #### L [id number] ####[facility] ([facility])[address] [place] [address] Eosinophils (Bld) [#/Vol] 0.10 10*3/uL Normal 0.00-0.50 [facility] Comment on above: Performed By: #### L [id number] ####[facility] ([facility])[address] [place] [address] Eosinophils/100 WBC (Bld) 1.0 % Normal 0.0-6.0 [facility] Comment on above: Performed By: #### L [id number] ####[facility] ([facility])[address] [place] [address] Erythrocyte distribution width (RBC) [Ratio] 14.0 % Normal 11.5-15.0 [facility] Comment on above: Performed By: #### L [id number] ####[facility] ([facility])[address] [place] [address] ERYTHROCYTE MEAN CORPUSCULAR HEMOGLOBIN CONCENTRATION (G/DL) BY AUTOMATED 32.3 g/dL Normal 32.0-35.0 [facility] Comment on above: Performed By: #### L [id number] ####[facility] ([facility])[address] [place] [address] Hematocrit (Bld) [Volume fraction] 46.4 % Normal 39.0-55.0 [facility] Comment on above: Performed By: #### L [id number] ####[facility] ([facility])[address] [place] [address] Hemoglobin (Bld) [Mass/Vol] 15.0 g/dL Normal 13.0-17.0 [facility] Comment on above: Performed By: #### L [id number] ####[facility] ([facility])[address] [place] [address] Immature granulocytes (Bld) [#/Vol] 0.09 10*3/uL Normal 0.00-0.20 [facility] Comment on above: Performed By: #### L [id number] ####[facility] ([facility])[address] [place] [address] Immature granulocytes/100 WBC (Bld) 0.9 % Normal 0.0-1.0 [facility] Comment on above: Performed By: #### L [id number] ####[facility] ([facility])[address] [place] [address] Lymphocytes (Bld) [#/Vol] 0.92 10*3/uL Low 1.20-4.00 [facility] Comment on above: Performed By: #### L [id number] ####[facility] ([facility])[address] [place] [address] Lymphocytes/100 WBC (Bld) 9.2 % Low 20.0-45.0 [facility] Comment on above: Performed By: #### L [id number] ####[facility] ([facility])[address] [place] [address] MCH (RBC) [Entitic mass] 29.5 pg Normal 27.0-33.0 [facility] Comment on above: Performed By: #### L [id number] ####[facility] ([facility])[address] [place] [address] MCV (RBC) [Entitic vol] 91.3 fL Normal 82.0-98.0 [facility] Comment on above: Performed By: #### L [id number] ####[facility] ([facility])[address] [place] [address] Monocytes (Bld) [#/Vol] 0.75 10*3/uL Normal 0.10-1.00 [facility] Comment on above: Performed By: #### L [id number] ####[facility] ([facility])[address] [place] [address] Monocytes/100 WBC (Bld) 7.5 % Normal 5.0-12.0 [facility] Comment on above: Performed By: #### L [id number] ####[facility] ([facility])[address] [place] [address] Neutrophils (Bld) [#/Vol] 8.09 10*3/uL High 1.60-7.60 [facility] Comment on above: Performed By: #### L [id number] ####[facility] ([facility])[address] [place] [address] Neutrophils/100 WBC (Bld) 80.4 % High 40.0-72.0 [facility] Comment on above: Performed By: #### L [id number] ####[facility] ([facility])[address] [place] [address] NRBC (PER 100 WBCS) BY AUTOMATED COUNT 0.0 % Normal 0 [facility] Comment on above: Performed By: #### L [id number] ####[facility] ([facility])[address] [place] [address] PLATELETS (10*3/UL) IN BLOOD AUTOMATED COUNT 567 10*3/uL High 150-400 [facility] Comment on above: Performed By: #### L [id number] ####[facility] ([facility])[address] [place] [address] RBC (Bld) [#/Vol] 5.08 10*6/uL Normal 4.20-5.70 [facility] Comment on above: Performed By: #### L [id number] ####[facility] ([facility])[address] [place] [address] WBC (Bld) [#/Vol] 10.05 10*3/uL Normal 4.00-10.60 [facility] Comment on above: Performed By: #### L [id number] ####[facility] ([facility])[address] [place] [address] COMPREHENSIVE METABOLIC PANE Nitin 02-09-2023 Albumin [Mass/Vol] 4.5 g/dL Normal 3.5-5.7 [facility] Comment on above: Performed By: #### L [id number] #### [facility] ([facility]) [address] [place] [address] ALP [Catalytic activity/Vol] 132 U/L High 34-104 [facility] Comment on above: Performed By: #### L [id number] #### [facility] ([facility]) [address] [place] [address] ALT [Catalytic activity/Vol] 47 U/L Normal 7-52 [facility] Comment on above: Performed By: #### L [id number] #### [facility] ([facility]) [address] [place] [address] Anion gap [Moles/Vol] 13 mmol/L Normal 7-20 [facility] Comment on above: Performed By: #### L [id number] #### [facility] ([facility]) [address] [place] [address] AST [Catalytic activity/Vol] 27 U/L Normal 13-39 [facility] Comment on above: Performed By: #### L [id number] #### [facility] ([facility]) [address] [place] [address] Bilirubin [Mass/Vol] 0.6 mg/dL Normal 0.3-1.0 [facility] Comment on above: Performed By: #### L [id number] #### [facility] ([facility]) [address] [place] [address] Calcium [Mass/Vol] 9.7 mg/dL Normal 8.6-10.3 [facility] Comment on above: Performed By: #### L [id number] #### [facility] ([facility]) [address] [place] [address] Chloride [Moles/Vol] 102 mmol/L Normal 98-107 [facility] Comment on above: Performed By: #### L [id number] #### [facility] ([facility]) [address] [place] [address] CO2 [Moles/Vol] 27 mmol/L Normal 21-31 [facility] Comment on above: Performed By: #### L [id number] #### [facility] ([facility]) [address] [place] [address] Creatinine [Mass/Vol] 1.17 mg/dL Normal 0.70-1.30 [facility] Comment on above: Performed By: #### L [id number] #### [facility] ([facility]) [address] [place] [address] GLOMERULAR FILTRATION RATE ML/MIN/1.73 SQ M.PREDICTED 70.5 mL/min/1.73m*2 Normal >60.0 [facility] Comment on above: Result Comment: [facility]???s estimated glomerular filtration rate (eGFR) will no [...] group of individuals. Performed By: #### L [id number] #### [facility] ([facility]) [address] [place] [address] Glucose [Mass/Vol] 111 mg/dL High 70-100 [facility] Comment on above: Performed By: #### L [id number] #### [facility] ([facility]) [address] [place] [address] Potassium [Moles/Vol] 4.6 mmol/L Normal 3.5-5.1 [facility] Comment on above: Performed By: #### L [id number] #### [facility] ([facility]) [address] [place] [address] Protein [Mass/Vol] 7.2 g/dL Normal 6.0-8.3 [facility] Comment on above: Performed By: #### L [id number] #### [facility] ([facility]) [address] [place] [address] Sodium [Moles/Vol] 137 mmol/L Normal 136-145 [facility] Comment on above: Performed By: #### L [id number] #### [facility] ([facility]) [address] [place] [address] Urea nitrogen [Mass/Vol] 19 mg/dL Normal 7-25 [facility] Comment on above: Performed By: #### L [id number] #### [facility] ([facility]) [address] [place] [address] UREA NITROGEN/CREATININE (MASS RATIO) IN SER/PLAS 16.2 Normal [facility] Comment on above: Performed By: #### L [id number] #### [facility] ([facility]) [address] [place] [address] Follow-Upon 02-09-2023 Follow-Up [id number] Vishal Duke 1960 M Date Provider Department Center 02/09/2023 263-BOBBY MALDONADO TXP None Family History Problem Relation Age of Onset Alzheimer's disease Mother Coronary artery disease Father Family Status - Relation Status Age at Mother Father Level of Service:12144 [place] OFFICE/OUTPATIENT ESTABLISHED LOW MDM 20-29 MIN Reason for Visit and Comments: Kidney Follow-up [] - No major concerns today Normal [facility] HEMOGLOBIN A1Con 02-09-2023 Glucose [Mass/Vol] 134 mg/dL Normal [facility] Comment on above: Performed By: #### L [id number] #### [facility] ([employer]) [address] [place] [address] HbA1c (Bld) [Mass fraction] 6.3 % High 4.0-6.0 [facility] Comment on above: Performed By: #### L [id number] #### [facility] ([employer]) [address] [place] [address] LIPID PANELon 02-09-2023 CHOL/HDL 3.6 mg/dL Normal [facility] Comment on above: Performed By: #### L [id number] ####[facility] ([employer])[address] [place] [address] Cholesterol [Mass/Vol] 126 mg/dL Normal 120-200 [facility] Comment on above: Performed By: #### L [id number] ####[facility] ([employer])[address] [place] [address] Magnesium [Mass/Vol] 214 mg/dL High 40-149 [facility] Comment on above: Result Comment: TRIG LYCERIDE REFERENCE RANGE: 20 YEARS AND OLDER CARDIOVASCULAR RISK LESS THAN 150 mg/dL LOW RISK 150 TO 199 mg/dL BORDERLINE RISK 200 mg/dL AND GREATER HIGH RISK Performed By: #### L [id number] ####[facility] ([employer])[address] [place] [address] Magnesium [Mass/Vol] 48 mg/dL Normal 0-160 [facility] Comment on above: Performed By: #### L [id number] ####[facility] ([facility])[address] [place] [address] Magnesium [Mass/Vol] 35 mg/dL Normal 23-92 [facility] Comment on above: Performed By: #### L [id number] ####[facility] ([facility])[address] [place] [address] NON HDL CHOL. (LDL+VLDL) 91 Normal [facility] Comment on above: Performed By: #### L [id number] ####[facility] ([facility])[address] [place] [address] TOTAL VLDL-C 43 mg/dL High 0-40 [facility] Comment on above: Performed By: #### L [id number] ####[facility] ([facility])[address] [place] [address] Labon 02-09-2023 Lab [id number] Vishal Duke 1960 M Date Provider Department Rake 02/09/2023 [id number] DRAW STATION KXT Draw [facility] Family History Problem Relation Age of Onset Alzheimer's disease Mother Coronary artery disease Father Family Status - Relation Status Age at Mother Father Normal [facility] MAGNESIUMon 02-09-2023 Magnesium [Mass/Vol] 1.7 mg/dL Low 1.9-2.7 [facility] Comment on above: Performed By: #### L [id number] #### [facility] ([facility]) [address] [place] [address] PHOSPHORUSon 02-09-2023 Magnesium [Mass/Vol] 3.7 mg/dL Normal 2.5-5.0 [facility] Comment on above: Performed By: #### L [id number] #### [facility] ([facility]) [address] [place] [address] TACROLIMUS LEVELon Tacrolimus (Bld) [Mass/Vol] 3.3 ng/mL Low 5.0-20.0 [facility] Comment on above: Result Comment: The [employer] Tacrolimus assay is a delayed one-step immunoassay for the quantitative determination of tacrolimus in human whole blood using the chemiluminescent microparticle immunoassay (CMIA) technology with flexible assay protocols, referred to as Chemiflex. Performed By: #### L [id number] #### [facility] ([facility]) [address] [place] [address] TESTOSTERONE, FREE AND TOTAL , AND SHBGon 02-09-2023 SEX HORMONE BINDING GLOBULIN (NMOL/L) IN SER/PLAS 17 nmol/L Normal 11-80 [facility] Comment on above: Performed By: #### L [id number] #### [facility] ([facility]) [address] [place] [address] TESTOSTERONE (NG/DL) IN SER/PLAS 495 ng/dL Normal 220-1000 [facility] Comment on above: Performed By: #### L [id number] #### [facility] ([facility]) [address] [place] [address] TESTOSTERONE FREE (NG/ML) IN SER/PLAS 142.2 pg/mL Normal 47-244 [facility] Comment on above: Result Comment: The concentration of free testosterone is derived from a mathematical expression based on the constant for the binding of testosterone to albumin and/or sex hormone binding globulin. Test Performed by [employer] [address] [place] [id number] - Released 02/09/2023 20:38 Performed By: #### L [id number] #### [facility] ([facility]) [address] [place] [address] URIC ACIDon 02-09-2023 Magnesium [Mass/Vol] 5.1 mg/dL Normal 4.4-7.6 [facility] Comment on above: Performed By: #### L [id number] #### [facility] ([facility]) [address] [place] [address] Reminderson 02-03-2023 Reminders - From: Tamara White MA To: Tamara White MA; Sent: 02/02/2023 10:39:43 EDT Show up: 02/02/2023 10:40:00 EDT Subject: colon recall Reminder Message [address] Cerrato 02/01/13 first recall letter sent [facility] Patient Letter FTon 2022 Patient [place] [facility] [place]Inserted Image. Lacy ble to display) February 02, 2023 VISHAL Robertson [facility] [place] [address] : 1960 Dear Vishal, This is a reminder that you are due for an appointment with [facility]. Please contact our office at [phone] to schedule your 10 year colon recall Thank you, [facility] 30on 01-25-2023 30 Problem: Neurosensor y - [...] of patient condition declining or worsening Normal [facility] 30 Daily Case Managemen t Update Multidisciplinary rounds have been completed. Barriers to Discharge: s/p bilateral Nephrectomy. POD #1 From home. Hx of Kidney Transplant - 08/15/2017 Diet: Dietary Orders (From admission, onward) Start Ordered 01/25/23 1200 Full Liquid Diet Diet effective now Question: Room Service? Answer: No 01/25/23 0806 01/25/23 0324 Clear Liquid Diet Diet effective now Question: Room Service? Answer: No 01/25/23322 Physician Expected Discharge Date: 01/26/2023 Discharge Delays: PT Six Click Score: OT Six Click Score: PT Recommendations: OT Recommendations: New Consults: Normal [facility] BASIC METABOLIC PANELon 01-15 Anion gap [Moles/Vol] 10 mmol/L Normal 7-20 [facility] Comment on above: Performed By: #### L [id number] #### [facility] (AKER) [address] [place] [address] Calcium [Mass/Vol] 6.6 mg/dL Low 8.6-10.3 [facility] Comment on above: Performed By: #### L [id number] #### [facility] (AKER) [address] [facility] [place] [address] Chloride [Moles/Vol] 116 mmol/L High 98-107 [facility] Comment on above: Performed By: #### L [id number] #### [facility] (BEAKER) [address] [facility] [place] [address] CO2 [Moles/Vol] 20 mmol/L Low 21-31 [facility] Comment on above: Performed By: #### L [id number] #### [facility] (BEAKER) [address] [facility] [place] [address] Creatinine [Mass/Vol] 0.92 mg/dL Normal 0.70-1.30 [facility] Comment on above: Performed By: #### L [id number] #### [facility] ([facility]) [address] [place] [address] GLOMERULAR FILTRATION RATE ML/MIN/1.73 SQ M.PREDICTED 94.1 mL/min/1.73m*2 Normal >60.0 [facility] Comment on above: Result Comment: The [facility]???s estimated glomerular filtration rate (eGFR) will no [...] group of individuals. Performed By: #### L [id number] #### [facility] ([facility]) [address] [place] [address] Glucose [Mass/Vol] 113 mg/dL High 70-100 [facility] Comment on above: Performed By: #### L [id number] #### [facility] ([facility]) [address] [place] [address] Potassium [Moles/Vol] 3.3 mmol/L Low 3.5-5.1 [facility] Comment on above: Performed By: #### L [id number] #### [facility] ([facility]) [address] [place] [address] Sodium [Moles/Vol] 143 mmol/L Normal 136-145 [facility] Comment on above: Performed By: #### L [id number] #### [facility] ([facility]) [address] [place] [address] Urea nitrogen [Mass/Vol] 17 mg/dL Normal 7-25 [facility] Comment on above: Performed By: #### L [id number] #### [facility] ([facility]) [address] [place] [address] UREA NITROGEN/CREATININE (MASS RATIO) IN SER/PLAS 18.5 Normal [facility] Comment on above: Performed By: #### L [id number] #### [facility] ([facility]) [address] [place] [address] CBCon 01-25-2023 Erythrocyte distribution width (RBC) [Ratio] 14.8 % Normal 11.5-15.0 [facility] Comment on above: Performed By: #### L [id number] #### [facility] ([facility]) [address] [place] [address] ERYTHROCYTE MEAN CORPUSCULAR HEMOGLOBIN CONCENTRATION (G/DL) BY AUTOMATED 32.2 g/dL Normal 32.0-35.0 [facility] Comment on above: Performed By: #### L [id number] #### [facility] ([facility]) [address] [place] [address] Hematocrit (Bld) [Volume fraction] 42.5 % Normal 39.0-55.0 [facility] Comment on above: Performed By: #### L [id number] #### [facility] ([facility]) [address] [place] [address] Hemoglobin (Bld) [Mass/Vol] 13.7 g/dL Normal 13.0-17.0 [facility] Comment on above: Performed By: #### L [id number] #### [facility] ([facility]) [address] [place] [address] MCH (RBC) [Entitic mass] 29.7 pg Normal 27.0-33.0 [facility] Comment on above: Performed By: #### L [id number] #### [facility] ([facility]) [address] [place] [address] MCV (RBC) [Entitic vol] 92.2 fL Normal 82.0-98.0 [facility] Comment on above: Performed By: #### L [id number] #### [facility] ([facility]) [address] [place] [address] PLATELETS (10*3/UL) IN BLOOD AUTOMATED COUNT 232 10*3/uL Normal 150-400 [facility] Comment on above: Performed By: #### L [id number] #### [facility] (BEAKER) [address] [place] [address] RBC (Bld) [#/Vol] 4.61 10*6/uL Normal 4.20-5.70 [facility] Comment on above: Performed By: #### L [id number] #### [facility] ([facility]) [address] [place] [address] WBC (Bld) [#/Vol] 8.82 10*3/uL Normal 4.00-10.60 [facility] Comment on above: Performed By: #### L [id number] #### [facility] ([facility]) [address] [place] [address] DSon 01-25-2023 DS Admission Admitted 01/24/2023 for [...] Medications These medications were sent to [facility] - [place], [place] - [address] [place] [address] [place] 1076 [address] [facility] [place] [address], [facility] [address] docusate sodium 100 mg capsule methocarbamol 500 [...] (*) SODIU (more content not included)... Normal [facility] MAGNESIUMon 01-25-2023 Magnesium [Mass/Vol] 1.1 mg/dL Low 1.9-2.7 [facility] Comment on above: Performed By: #### L [id number] #### [facility] (BEAKER) [address] [place] [address] NURSNOTEon 01-25-2023 NURSNOTE RN agrees with previ ous nurse assessment. Normal [facility] PHOSPHORUSon 01-25-2023 Magnesium [Mass/Vol] 3.0 mg/dL Normal 2.5-5.0 [facility] Comment on above: Performed By: #### L [id number] #### [facility] (BEAKER) [address] [place] [address] POCT GLUCOSE METER UNSOLICIT ED RESULTSon 01-25-2023 Glucose [Mass/Vol] 137 mg/dL High 70-105 [facility] Comment on above: Order Comment: Waive d Testing in the ED is performed under the ED CLIA certificate #[id number]. Result Comment: [email or web address] Performed By: #### L [id number] ####[facility] ([facility])[address] [place] [place] [address] Glucose [Mass/Vol] 144 mg/dL High 70-105 [facility] Comment on above: Order Comment: Waive d Testing in the ED is performed under the ED CLIA certificate #[id number]. Result Comment: [email or web address] Performed By: #### L [id number] #### [facility] ([facility]) [address] [facility] [place] [address] Glucose [Mass/Vol] 116 mg/dL High 70-105 [facility] Comment on above: Order Comment: Waive d Testing in the ED is performed under the ED CLIA certificate #[id number]. Result Comment: [email or web address] Performed By: #### L [id number] #### [facility] ([facility]) [address] [facility] [place] [address] Glucose [Mass/Vol] 130 mg/dL High 70-105 [facility] Comment on above: Order Comment: Waive d Testing in the ED is performed under the ED CLIA certificate #[id number]. Result Comment: [email or web address] Performed By: #### L [id number] #### [facility] ([facility]) [address] [facility] [place] [address] TACROLIMUS LEVELon 3 Tacrolimus (Bld) [Mass/Vol] 6.6 ng/mL Normal 5.0-20.0 [facility] Comment on above: Result Comment: The [employer] Tacrolimus assay is a delayed one-step immunoassay for the quantitative determination of tacrolimus in human whole blood using the chemiluminescent microparticle immunoassay (CMIA) technology with flexible assay protocols, referred to as Chemiflex. Performed By: #### L [id number] #### [facility] (BEAKER) [address] [place] [address] ARTERIAL BLOOD GAS WITH CO-O XIMETRYon 01-24-2023 Base excess Calc (Bld) [Moles/Vol] -4.3000 mmol/L Low -2.0-3.0 [facility] Comment on above: Order Comment: OR GA S Performed By: #### L [id number] ####[facility] [id number] [place] [address] [place] CARBOXYHEMOGLOBIN/H EMOGLOBIN TOTAL % IN BLOOD 1.0 % Normal 0.0-3.0 [facility] Comment on above: Order Comment: OR GA S Performed By: #### L [id number] ####[facility] [id number] [place] [address] [facility] CO2 (Bld) [Partial pressure] 35 mm[Hg] Normal 35-48 [facility] Comment on above: Order Comment: OR GA S Performed By: #### L [id number] ####[facility] [id number] [place] [address] [place] DEOXYGENATED HEMOGLOBIN IN BLOOD 1.9 % Normal 1-5 [facility] Comment on above: Order Comment: OR GA S Performed By: #### L [id number] ####[facility] [id number] [place] [address] [place] HCO3 (Bld) [Moles/Vol] 20.2 mmol/L Low 21.0-28.0 [facility] Comment on above: Order Comment: OR GA S Performed By: #### L [id number] ####[facility] [id number] [place] [address] [place] Hemoglobin (Bld) [Mass/Vol] 14.9 g/dL Normal 11.7-17.4 [facility] Comment on above: Order Comment: OR GA S Performed By: #### L [id number] ####[facility] [id number] [place] [address] [place] METHEMOGLOBIN/100 IN BLOOD 0.5 % Normal 0.0-1.5 [facility] Comment on above: Order Comment: OR GA S Performed By: #### L [id number] ####[facility] [id number] [address] Oxygen (Bld) [Partial pressure] 104 mm[Hg] High 83-100 [facility] Comment on above: Order Comment: OR GA S Performed By: #### L [id number] ####[facility] [id number] [place], [place] [address] OXYGEN SATURATION (%) IN ARTERIAL BLOOD 98.1 % High 94.0-98.0 [facility] Comment on above: Order Comment: OR GA S Performed By: #### L [id number] ####[facility] [id number] [place], [place] [address] OXYGENATED HEMOGLOBIN IN BLOOD 96.6 % High 90.0-95.0 [facility] Comment on above: Order Comment: OR GA S Performed By: #### L [id number] ####[facility] [id number] [address] pH (Bld) 7.37 [pH] Normal 7.35-7.45 [facility] Comment on above: Order Comment: OR GA S Performed By: #### L [id number] ####[facility] [id number] [address] SOURCE OF OXYGEN Vent Normal [facility] Comment on above: Order Comment: OR GA S Performed By: #### L [id number] ####[facility] [id number] [address] Base excess Calc (Bld) [Moles/Vol] -4.0000 mmol/L Low -2.0-3.0 [facility] Comment on above: Performed By: #### L [id number] ####[facility] [id number] [place] [address] [facility] CARBOXYHEMOGLOBIN/H EMOGLOBIN TOTAL % IN BLOOD 0.8 % Normal 0.0-3.0 [facility] Comment on above: Performed By: #### L [id number] ####[facility] [id number] [place] [address] [place] CO2 (Bld) [Partial pressure] 46 mm[Hg] Normal 35-48 [facility] Comment on above: Performed By: #### L [id number] ####[facility] [id number] [place] [address] [place] DEOXYGENATED HEMOGLOBIN IN BLOOD 1.3 % Normal 1-5 [facility] Comment on above: Performed By: #### L [id number] ####[facility] [id number] [place] [address] [place] HCO3 (Bld) [Moles/Vol] 22.6 mmol/L Normal 21.0-28.0 [facility] Comment on above: Performed By: #### L [id number] ####[facility] [id number] [place] [address] [place] Hemoglobin (Bld) [Mass/Vol] 15.0 g/dL Normal 11.7-17.4 [facility] Comment on above: Performed By: #### L [id number] ####[facility] [id number] [place] [address] [place] METHEMOGLOBIN/100 IN BLOOD 0.5 % Normal 0.0-1.5 [facility] Comment on above: Performed By: #### L [id number] ####[facility] [id number] [place] [address] [place] Oxygen (Bld) [Partial pressure] 137 mm[Hg] High 83-100 [facility] Comment on above: Performed By: #### L [id number] ####[facility] [id number] [place] [address] [place] OXYGEN SATURATION (%) IN ARTERIAL BLOOD 98.7 % High 94.0-98.0 [facility] Comment on above: Performed By: #### L [id number] ####[facility] [id number] [place] [address] [place] OXYGENATED HEMOGLOBIN IN BLOOD 97.4 % High 90.0-95.0 [facility] Comment on above: Performed By: #### L [id number] ####[facility] [id number] [place] [address] [place] pH (Bld) 7.30 [pH] Low 7.35-7.45 [facility] Comment on above: Performed By: #### L [id number] ####[facility] [id number] [place] [address] [place] SOURCE OF OXYGEN Vent Normal [facility] Comment on above: Performed By: #### L [id number] ####[facility] [id number] [place] [address] [facility] BASIC METABOLIC PANELon 01-15 Anion gap [Moles/Vol] 14 mmol/L Normal 7-20 [facility] Comment on above: Performed By: #### L [id number] #### [facility] (BEAKER) [address] [place] [address] Calcium [Mass/Vol] 8.5 mg/dL Low 8.6-10.3 [facility] Comment on above: Performed By: #### L [id number] #### [facility] (BEAKER) [address] [place] [address] Chloride [Moles/Vol] 113 mmol/L High 98-107 [facility] Comment on above: Performed By: #### L [id number] #### [facility] (BEAKER) [address] [place] [address] CO2 [Moles/Vol] 20 mmol/L Low 21-31 [facility] Comment on above: Performed By: #### L [id number] #### [facility] (BEAKER) [address] [place] [address] Creatinine [Mass/Vol] 1.12 mg/dL Normal 0.70-1.30 [facility] Comment on above: Performed By: #### L [id number] #### [facility] (BEAKER) [address] [place] [address] GLOMERULAR FILTRATION RATE ML/MIN/1.73 SQ M.PREDICTED 74.3 mL/min/1.73m*2 Normal >60.0 [facility] Comment on above: Result Comment: The [facility]???s estimated glomerular filtration rate (eGFR) will no [...] individuals. Performed By: #### L [id number] #### [facility] ([facility]) [address] [place] [address] Glucose [Mass/Vol] 148 mg/dL High 70-100 [facility] Comment on above: Performed By: #### L [id number] #### [facility] ([facility]) [address] [place] [address] Potassium [Moles/Vol] 4.6 mmol/L Normal 3.5-5.1 [facility] Comment on above: Performed By: #### L [id number] #### [facility] ([facility]) [address] [place] [address] Sodium [Moles/Vol] 142 mmol/L Normal 136-145 [facility] Comment on above: Performed By: #### L [id number] #### [facility] ([facility]) [address] [place] [address] Urea nitrogen [Mass/Vol] 20 mg/dL Normal 7-25 [facility] Comment on above: Performed By: #### L [id number] #### [facility] ([facility]) [address] [place] [address] UREA NITROGEN/CREATININE (MASS RATIO) IN SER/PLAS 17.9 Normal [facility] Comment on above: Performed By: #### L [id number] #### [facility] ([facility]) [address] [place] [address] CALCIUM, IONIZEDon 3 CALCIUM IONIZED (MMOL/L) IN BLOOD 1.18 mmol/L Normal 1.15-1.33 [facility] Comment on above: Performed By: #### C ALCIUM, IONIZED ####[facility] [id number] [place] [address] [place] CALCIUM IONIZED (MMOL/L) IN BLOOD 1.12 mmol/L Low 1.15-1.33 [facility] Comment on above: Performed By: #### L [id number] #### [facility] (BEAKER) [address] [place] [address] CBCon 01-24-2023 Erythrocyte distribution width (RBC) [Ratio] 14.5 % Normal 11.5-15.0 [facility] Comment on above: Performed By: #### L [id number] #### [facility] (BEAKER) [address] [place] [address] ERYTHROCYTE MEAN CORPUSCULAR HEMOGLOBIN CONCENTRATION (G/DL) BY AUTOMATED 33.7 g/dL Normal 32.0-35.0 [facility] Comment on above: Performed By: #### L [id number] #### [facility] (BEAKER) [address] [place] [address] Hematocrit (Bld) [Volume fraction] 44.2 % Normal 39.0-55.0 [facility] Comment on above: Performed By: #### L [id number] #### [facility] (BEAKER) [address] [place] [address] Hemoglobin (Bld) [Mass/Vol] 14.9 g/dL Normal 13.0-17.0 [facility] Comment on above: Performed By: #### L [id number] #### [facility] (BEAKER) [address] [place] [address] MCH (RBC) [Entitic mass] 30.5 pg Normal 27.0-33.0 [facility] Comment on above: Performed By: #### L [id number] #### [facility] (BEAKER) [address] [place] [address] MCV (RBC) [Entitic vol] 90.4 fL Normal 82.0-98.0 [facility] Comment on above: Performed By: #### L [id number] #### [facility] ([facility]) [address] [place] [address] PLATELETS (10*3/UL) IN BLOOD AUTOMATED COUNT 230 10*3/uL Normal 150-400 [facility] Comment on above: Performed By: #### L [id number] #### [facility] ([facility]) [address] [place] [address] RBC (Bld) [#/Vol] 4.89 10*6/uL Normal 4.20-5.70 [facility] Comment on above: Performed By: #### L [id number] #### [facility] ([facility]) [address] [place] [address] WBC (Bld) [#/Vol] 11.18 10*3/uL High 4.00-10.60 [facility] Comment on above: Performed By: #### L [id number] #### [facility] ([facility]) [address] [place] [place] [address] HISTOLOGY - TISSUE EXAMon LAB AP CASE REPORT Normal [facility] Comment on above: Order Comment: Pre-o p diagnosis:PKD (polycystic kidney disease) [Q61.3] Result Comment: Surg ical Pathology Case: [id number] Authorizing Provider: Bobby Maldonado MD Collected: 01/24/2023 1630 Ordering Location: [facility] Main Operating Room Received: 01/24/2023 1721 Pathologist: Vaishnavi Magallon MD Specimens: A) - Kidney, RIGHT KIDNEY B) - Kidney, LEFT KIDNEY Performed By: #### L [id number] ####[facility] ([facility])[address] [place] [address] LAB AP CLINICAL INFORMATION Normal [facility] Comment on above: Order Comment: Pre-o p diagnosis:PKD (polycystic kidney disease) [Q61.3] Result Comment: Post -Op Diagnoses Q61.3 - PKD (polycystic kidney disease) [ICD-10-CM] Performed By: #### L [id number] ####[facility] ([place])[address] [place] [address] LAB AP GROSS DESCRIPTION A. Kidney. Normal [facility] Comment on above: Order Comment: Pre-o p [...] are identified in the perinephric adipose tissue. Printing Engineer sections are submitted as follows: A1 Vascular and ureter margin, en face A2 Superior pole A3 Mid kidney A4 Inferior pole Rubens Cornejo, Pathologists' Retail Shift Leader Student Hussein Lemus, Pathologists' Retail Shift Leader B. Kidney. Part B is received in formalin [...] are identified in the perinephric adipose tissue. Printing Engineer sections are submitted as follows: A1 Vascular and ureter margin, en face A2 Superior pole A3 Mid kidney A4 Inferior pole B5 Largest cyst with clot B6 Possible adrenal glands Rubens Cornejo, Pathologists' Retail Shift Leader Student Hussein Lemus, Pathologists' Retail Shift Leader Performed By: #### L [id number] ####[facility] ([facility])[address] [place] [address] LAB AP MICROSCOPIC DESCRIPTION Microscopic examination performed. [facility] Comment on above: Order Comment: Pre-o p diagnosis:PKD (polycystic kidney disease) [Q61.3] Performed By: #### L [id number] ####[facility] (BEAKER)[address] [place] [address] LAB AP REPORT FINAL DIAGNOSIS NARRATIVE [facility] Comment on above: Order Comment: Pre-o p diagnosis:PKD (polycystic kidney disease) [Q61.3] Result Comment: A. K idney, right, nephrectomy: - Polycystic kidney disease B. Kidney, left, nephrectomy: - Polycystic kidney disease - No significant pathologic findings in adrenal tissue Performed By: #### L [id number] ####[facility] (BEAKER)[address] [place] [address] HPon 10-10-2023 Dr. Lila Campos , Dr. Giovana Ambrose, Dr. Yaya Busch, Dr. Rafael Maldonado, Dr. John Quarles , Dr. Manju Hood, [...] The ad (more content not included)... Normal [facility] MAGNESIUMon 01-24-2023 Magnesium [Mass/Vol] 1.3 mg/dL Low 1.9-2.7 [facility] Comment on above: Performed By: #### L [id number] ####[facility] (BEAKER)[address] [place] [address] OPNOTEon 01-24-2023 OPNOTE NEPHRECTOMY, ROBOT-ASSISTED (B) Operative Note Date: 01/24/2023 Location: [facility] OR Name: Vishal Duke, : 1960, Diagnosis Pre-op Diagnosis * PKD (polycystic kidney disease) [Q61.3] Post-op Diagnosis * PKD (polycystic kidney disease) [Q61.3] Procedures ROBOTIC ASSISTED BILATERAL NEPHRECTOMY Surgeons * Bobby Maldonado - Primary RESIDENT Amelia Olson MD [facility] Urology PGY4 Procedure Summary Anesthesia: General ASA: IV Estimated Blood Loss: 150 mL Total IV Fluids: Crystalloid Drains: [REMOVED] Urethral Catheter Non-latex 16 Fr. (Removed) Site Assessment Other (Comment) 01/25/23 0824 Collection Container Standard drainage bag 01/24/232134 Securement Method Securing device (Describe) 01/24/232134 Reason for Continuing Urinary Catheterization Surgery/procedure time > 4 hours 01/24/232134 Output (mL) 400 mL 01/25/23 0433 Specimens ID Source Type Tests Collected By Collected At Frozen? Priority Lab ID A Kidney Tissue HISTOLOGY - TISSUE EXAM Bobby Maldonado MD 01/24/23 1631 No Routine [id number] Description: RIGHT KIDNEY B Kidney Tissue HISTOLOGY - TISSUE EXAM Bobby Maldonado MD 01/24/23 8420 No Routine [id number] Description: LEFT KIDNEY Staff: Auto Body Shop Manager: Nany Rios; Shelby Sal RN Relief Auto Body Shop Manager: Pura Dimas, TATO; Jos Pete, TATO Relief Scrub: Fadi León CST Scrub Person: Nathalie Quintero, ELAINE; Myah Powerard Net Developer Software Engineer C: Jovanna Niño RN; Joyce Caraballo RN; Chichi Gutierrez CSA Orientee Scrub: Niya Adler CST Indications: Vishal Duke is an 62 y.o. male who is having End-stage renal disease secondary to Polycystic Kidneys who underwent donor kidney transplant on 08/15/2017. Patient was still having abdominal pain 2/2 to [facility] [place] [facility]. Procedure Details: The patient was seen [...] one 12mm robotic port and a 5mm diet assistant port in alinear fashion. An additional 5 [...] for 12 robotic port and 5 mm diet assistant port were all closed with 4-0 Biosyn [...] the colon (more content not included)... Normal [facility] PHOSPHORUSon 01-24-2023 Magnesium [Mass/Vol] 4.9 mg/dL Normal 2.5-5.0 [facility] Comment on above: Performed By: #### L [id number] #### [facility] ([facility]) [address] [place] [address] POCT PERFUSION PANEL UNSOLIC ITED RESULTSon 01-24-2023 CO2 [Moles/Vol] 22.0 mmol/L Normal 21.0-29.0 [facility] Comment on above: Performed By: #### L [id number] ####[facility] ([facility])[address] [place] [address] Glucose [Mass/Vol] 165 mg/dL High 70-105 [facility] Comment on above: Performed By: #### L [id number] ####[facility] (BEAKER)[address] [place] [address] HCO3 (Bld) [Moles/Vol] 21.0 mmol/L Low 23.0-28.0 [facility] Comment on above: Performed By: #### L [id number] ####[facility] ([facility]ER)[address] [place] [address] Hematocrit (Bld) [Volume fraction] 41 % Normal 38-51 [facility] Comment on above: Performed By: #### L [id number] ####[facility] ([facility])[address] [place] [address] Hemoglobin (Bld) [Mass/Vol] 13.9 g/dL Normal 12.0-17.0 [facility] Comment on above: Performed By: #### L [id number] ####[facility] ([facility]AK[facility])[address] [place] [address] POCT BASE EXCESS -6.0 mmol/L Low -2.0-3.0 [facility] Comment on above: Performed By: #### L [id number] ####[facility] ([facility]AK[facility])[address] [place] [address] POCT IONIZED CALCIUM 1.58 mmol/L Critically high 1.12-1.32 [facility] Comment on above: Performed By: #### L [id number] ####[facility] ([facility]ER)[address] [place] [address] POCT PCO2 46.9 mmHg Normal 41.0-51.0 [facility] Comment on above: Performed By: #### L [id number] ####[facility] ([facility]ER)[address] [place] [address] POCT PH 7.26 Low 7.31-7.41 [facility] Comment on above: Performed By: #### L [id number] ####[facility] ([facility])[address] [place] [address] POCT PO2 124 mmHg High 80-105 [facility] Comment on above: Performed By: #### L [id number] ####[facility] ([facility])[address] [place] [address] POCT SO2 98 % Normal 95-98 [facility] Comment on above: Performed By: #### L [id number] ####[facility] ([facility])[address] [place] [address] Potassium [Moles/Vol] 4.2 mmol/L Normal 3.5-4.9 [facility] Comment on above: Performed By: #### L [id number] ####[facility] ([facility])[address] [place] [address] Sodium [Moles/Vol] 140 mmol/L Normal 138.0-146.0 [facility] Comment on above: Performed By: #### L [id number] ####[facility] ([facility])[address] [place] [address] Glucose [Mass/Vol] 118 mg/dL High 70-105 [facility] Comment on above: Performed By: #### L [id number] #### [facility] ([facility]) [address] [place] [address] POCT BASE EXCESS Normal [facility] Comment on above: Performed By: #### L [id number] #### [facility] ([facility]) [address] [place] [address] POCT HCO3 Normal [facility] Comment on above: Performed By: #### L [id number] #### [facility] ([facility]) [address] [place] [address] POCT HEMATOCRIT Normal [facility] Comment on above: Performed By: #### L [id number] #### [facility] ([facility]) [address] [place] [address] POCT HEMOGLOBIN Normal [facility] Comment on above: Performed By: #### L [id number] #### [facility] ([facility]) [address] [place] [address] POCT IONIZED CALCIUM Normal [facility] Comment on above: Performed By: #### L [id number] #### [facility] ([facility]) [address] [place] [address] POCT PCO2 Normal [facility] Comment on above: Performed By: #### L [id number] #### [facility] ([facility]ER) [address] [place] [address] POCT PH Normal [facility] Comment on above: Performed By: #### L [id number] #### [facility] ([facility]) [address] [place] [address] POCT PO2 Normal [facility] Comment on above: Performed By: #### L [id number] #### [facility] ([facility]) [address] [place] [address] POCT SO2 Normal [facility] Comment on above: Performed By: #### L [id number] #### [facility] ([facility]) [address] [place] [address] POCT SODIUM Normal [facility] Comment on above: Performed By: #### L [id number] #### [facility] ([facility]) [address] [place] [address] POCT TOTAL CO2 Normal [facility] Comment on above: Performed By: #### L [id number] #### [facility] ([facility]) [address] [place] [address] Potassium [Moles/Vol] 3.9 mmol/L Normal 3.5-4.9 [facility] Comment on above: Performed By: #### L [id number] #### [facility] ([facility]) [address] [place] [address] POTASSIUM, WHOLE BLOODon Potassium [Moles/Vol] 4.3 mmol/L Normal 3.5-5.1 [facility] Comment on above: Performed By: #### P OTASSIUM, WHOLE BLOOD ####[facility] RESPIRATORY [id number] [place] [address] [place] Potassium [Moles/Vol] 4.1 mmol/L Normal 3.5-5.1 [facility] Comment on above: Performed By: #### L [id number] #### [facility] ([facility]ER) [address] [place] [address] SODIUM, WHOLE BLOODon 2022 SODIUM, WHOLE BLOOD 136 Normal 136-145 [facility] Comment on above: Performed By: #### L [id number] #### [facility] ([facility]) [address] [place] [address] SODIUM, WHOLE BLOOD 135 Low 136-145 [facility] Comment on above: Performed By: #### S ODIUM, WHOLE BLOOD ####[facility] RESPIRATORY [id number] [place] [address] [place] Orders Onlyon 01-20-2023 Orders Only [id number] Vishal Duke 1960 M Date Provider Department Rake 01/20/2023 AMY BRODY [facility] Family History Problem Relation Age of Onset Alzheimer's disease Mother Coronary artery disease Father Family Status - Relation Status Age at Mother Father Normal [facility] [id number] 01-12-2023 [id number] MEDICATIONS TO TAKE DAY OF SURGERY WITH SIP OF WATER USE ALBUTEROL INHALER TAKE NEXIUM ISOSORBIDE MYFORTIC TACROLIMUS METOPROLOL HOLD PLAVIX X 5 DAYS STOP 01/19/23 PT WILL COMPLETE EKG AT [facility] ON 01/13 IF YOU ARE GOING HOME AFTER YOUR SURGERY OR PROCEDURE, FOR YOUR SAFETY, YOUR SURGERY WILL BE CANCELLED IF BOTH OF THE FOLLOWING ARE NOT AVAILABLE: An adult power screwdriver operator over the age of 18, that can [...] lenses. Do not wear perfume, make-up, nail upper sorbian, or lotions on the day of your [...] need to make any changes, please call [phone]. Notify your surgeon if you develop any illness such as a cold, cough, fever, sore throat or vomiting between now and your surgery. Thank you for entrusting us with your care. [facility] Surgical Services Team Normal [facility] Orders Onlyon 01-12-2023 Orders Only [id number] Vishal Duke 1960 Date Provider Department Rake 01/12/2023 AMY BRODY [facility] Family History Problem Relation Age of Onset Alzheimer's disease Mother Coronary artery disease Father Family Status - Relation Status Age at Mother Father Normal [facility] APTTon 01-06-2023 ACTIVATED PARTIAL THROMBOPLASTIN TIME IN PPP BY COAGULATION ASSAY 27.0 Seconds Normal 25.0-35.0 [facility] Comment on above: Result Comment: Clin ical significance of the APTT is questionable in the presence of heparin. Performed By: #### L [id number] #### [facility] ([facility]ER) [address] [place] [address] CBC WITH AUTO DIFFERENTIALon 01-06-2023 Basophils (Bld) [#/Vol] 0.07 10*3/uL Normal 0.00-0.20 [facility] Comment on above: Performed By: #### L [id number] ####[facility] (BEAKER)[address] [place] [address] Basophils/100 WBC (Bld) 1.0 % Normal 0.0-1.0 [facility] Comment on above: Performed By: #### L [id number] ####[facility] ([facility])[address] [place] [address] Eosinophils (Bld) [#/Vol] 0.12 10*3/uL Normal 0.00-0.50 [facility] Comment on above: Performed By: #### L [id number] ####[facility] ([facility])[address] [place] [address] Eosinophils/100 WBC (Bld) 1.8 % Normal 0.0-6.0 [facility] Comment on above: Performed By: #### L [id number] ####[facility] ([facility])[address] [place] [address] Erythrocyte distribution width (RBC) [Ratio] 14.5 % Normal 11.5-15.0 [facility] Comment on above: Performed By: #### L [id number] ####[facility] ([facility])[address] [place] [address] ERYTHROCYTE MEAN CORPUSCULAR HEMOGLOBIN CONCENTRATION (G/DL) BY AUTOMATED 32.3 g/dL Normal 32.0-35.0 [facility] Comment on above: Performed By: #### L [id number] ####[facility] (BEAK[facility])[address] [place] [address] Hematocrit (Bld) [Volume fraction] 50.8 % Normal 39.0-55.0 [facility] Comment on above: Performed By: #### L [id number] ####[facility] (BEAKER)[address] [place] [address] Hemoglobin (Bld) [Mass/Vol] 16.4 g/dL Normal 13.0-17.0 [facility] Comment on above: Performed By: #### L [id number] ####[facility] (BEAKER)[address] [place] [address] Immature granulocytes (Bld) [#/Vol] 0.03 10*3/uL Normal 0.00-0.20 [facility] Comment on above: Performed By: #### L [id number] ####[facility] ([facility])[address] [place] [address] Immature granulocytes/100 WBC (Bld) 0.4 % Normal 0.0-1.0 [facility] Comment on above: Performed By: #### L [id number] ####[facility] ([facility])[address] [place] [address] Lymphocytes (Bld) [#/Vol] 1.05 10*3/uL Low 1.20-4.00 [facility] Comment on above: Performed By: #### L [id number] ####[facility] (BEAKER)[address] [place] [address] Lymphocytes/100 WBC (Bld) 15.5 % Low 20.0-45.0 [facility] Comment on above: Performed By: #### L [id number] ####[facility] (BEAKER)[address] [place] [address] MCH (RBC) [Entitic mass] 29.4 pg Normal 27.0-33.0 [facility] Comment on above: Performed By: #### L [id number] ####[facility] (BEAKER)[address] [place] [address] MCV (RBC) [Entitic vol] 91.2 fL Normal 82.0-98.0 [facility] Comment on above: Performed By: #### L [id number] ####[facility] ([facility])[address] [place] [address] Monocytes (Bld) [#/Vol] 0.73 10*3/uL Normal 0.10-1.00 [facility] Comment on above: Performed By: #### L [id number] ####[facility] ([facility])[address] [place] [address] Monocytes/100 WBC (Bld) 10.8 % Normal 5.0-12.0 [facility] Comment on above: Performed By: #### L [id number] ####[facility] ([facility])[address] [place] [address] Neutrophils (Bld) [#/Vol] 4.76 10*3/uL Normal 1.60-7.60 [facility] Comment on above: Performed By: #### L [id number] ####[facility] ([facility])[address] [place] [address] Neutrophils/100 WBC (Bld) 70.5 % Normal 40.0-72.0 [facility] Comment on above: Performed By: #### L [id number] ####[facility] ([facility])[address] [place] [address] NRBC (PER 100 WBCS) BY AUTOMATED COUNT 0.0 % Normal 0 [facility] Comment on above: Performed By: #### L [id number] ####[facility] ([facility])[address] [place] [address] PLATELETS (10*3/UL) IN BLOOD AUTOMATED COUNT 230 10*3/uL Normal 150-400 [facility] Comment on above: Performed By: #### L [id number] ####[facility] ([facility])[address] [place] [address] RBC (Bld) [#/Vol] 5.57 10*6/uL Normal 4.20-5.70 [facility] Comment on above: Performed By: #### L [id number] ####[facility] ([facility])[address] [place] [address] WBC (Bld) [#/Vol] 6.76 10*3/uL Normal 4.00-10.60 [facility] Comment on above: Performed By: #### L [id number] ####[facility] ([facility])[address] [place] [address] COMPREHENSIVE METABOLIC PANE Nitin 01-06-2023 Albumin [Mass/Vol] 4.7 g/dL Normal 3.5-5.7 [facility] Comment on above: Performed By: #### L [id number] ####[facility] ([facility])[address] [place] [address] ALP [Catalytic activity/Vol] 82 U/L Normal 34-104 [facility] Comment on above: Performed By: #### L [id number] ####[facility] ([facility])[address] [place] [address] ALT [Catalytic activity/Vol] 22 U/L Normal 7-52 [facility] Comment on above: Performed By: #### L [id number] ####[facility] ([facility])[address] [place] [address] Anion gap [Moles/Vol] 10 mmol/L Normal 7-20 [facility] Comment on above: Performed By: #### L [id number] ####[facility] ([facility])[address] [place] [address] AST [Catalytic activity/Vol] 18 U/L Normal 13-39 [facility] Comment on above: Performed By: #### L [id number] ####[facility] ([facility])[address] [place] [address] Bilirubin [Mass/Vol] 0.9 mg/dL Normal 0.3-1.0 [facility] Comment on above: Performed By: #### L [id number] ####[facility] ([facility])[address] [place] [address] Calcium [Mass/Vol] 9.6 mg/dL Normal 8.6-10.3 [facility] Comment on above: Performed By: #### L [id number] ####[facility] ([facility])[address] [place] [address] Chloride [Moles/Vol] 105 mmol/L Normal 98-107 [facility] Comment on above: Performed By: #### L [id number] ####[facility] ([facility])[address] [place] [address] CO2 [Moles/Vol] 28 mmol/L Normal 21-31 [facility] Comment on above: Performed By: #### L [id number] ####[facility] ([facility])[address] [place] [address] Creatinine [Mass/Vol] 1.27 mg/dL Normal 0.70-1.30 [facility] Comment on above: Performed By: #### L [id number] ####[facility] ([facility])[address] [place] [address] GLOMERULAR FILTRATION RATE ML/MIN/1.73 SQ M.PREDICTED 63.9 mL/min/1.73m*2 Normal >60.0 [facility] Comment on above: Result Comment: The [facility]???s estimated glomerular filtration rate (eGFR) will no [...] of individuals. Performed By: #### L [id number] ####[facility] ([facility])[address] [place] [address] Glucose [Mass/Vol] 117 mg/dL High 70-100 [facility] Comment on above: Performed By: #### L [id number] ####[facility] ([facility])[address] [place] [address] Potassium [Moles/Vol] 4.4 mmol/L Normal 3.5-5.1 [facility] Comment on above: Performed By: #### L [id number] ####[facility] (BEAKER)[address] [place] [address] Protein [Mass/Vol] 6.8 g/dL Normal 6.0-8.3 [facility] Comment on above: Performed By: #### L [id number] ####[facility] (BEAKER)[address] [place] [address] Sodium [Moles/Vol] 139 mmol/L Normal 136-145 [facility] Comment on above: Performed By: #### L [id number] ####[facility] (BEAKER)[address] [place] [address] Urea nitrogen [Mass/Vol] 20 mg/dL Normal 7-25 [facility] Comment on above: Performed By: #### L [id number] ####[facility] (BEAKER)[address] [place] [address] UREA NITROGEN/CREATININE (MASS RATIO) IN SER/PLAS 15.7 Normal [facility] Comment on above: Performed By: #### L [id number] ####[facility] (BEAK[facility])[address] [place] [address] CT ABDOMEN PELVIS [facility] ABDOMEN PELVIS WO IV CONTRAST [...] appear stable. The adrenal glands appear stable. [place] kidneys are diffusely replaced by cystic change. [...] reasonably achievable. Electronically signed: Dona Escobar. Normal [facility] Labon 01-06-2023 Lab [id number] Vishal Duke 1960 M Date Provider Department Center 01/06/2023 2249-[facility] OPD LAB RESOURCE [facility] OPD [facility] Family History Problem Relation Age of Onset Alzheimer's disease Mother Coronary artery disease Father Family Status - Relation Status Age at Mother Father Normal [facility] PROTIME-INRon 01-06-2023 INR IN PPP BY COAGULATION ASSAY 1.07 Normal 0.90-1.10 [facility] Comment on above: Result Comment: ACCC P [...] CHEST 1995;108:[id number]. Performed By: #### L [id number] ####[facility] (BEAKER)[address] [place] [address] PROTHROMBIN TIME (PT) IN PPP BY COAGULATION ASSAY 13.9 Seconds Normal 12.3-14.8 [facility] Comment on above: Performed By: #### L [id number] ####[facility] ([facility])[address] [place] [address] TYPE AND SCREENon 01-06-2023 AB SCREEN Negative Normal [facility] Comment on above: Performed By: #### L [id number] #### [facility] ([facility]) [address] [place] [address] ABO group Nom (Bld) A Normal [facility] Comment on above: Performed By: #### L [id number] #### [facility] ([facility]) [address] [place] [address] RH TYPE IN BLOOD Positive Normal [facility] Comment on above: Performed By: #### L [id number] #### [facility] ([facility]) [address] [place] [address] BILIRUBIN, DIRECTon 12-23-19 Magnesium [Mass/Vol] 0.2 mg/dL Normal 0-0.2 [facility] Comment on above: Performed By: #### L [id number] #### [facility] ([facility]) [address] [place] [address] CBC WITH AUTO DIFFERENTIALon 12-22-2022 Basophils (Bld) [#/Vol] 0.04 10*3/uL Normal 0.00-0.20 [facility] Comment on above: Performed By: #### L [id number] #### [facility] ([facility]) [address] [place] [address] Basophils/100 WBC (Bld) 0.5 % Normal 0.0-1.0 [facility] Comment on above: Performed By: #### L [id number] #### [facility] ([facility]) [address] [place] [address] Eosinophils (Bld) [#/Vol] 0.12 10*3/uL Normal 0.00-0.50 [facility] Comment on above: Performed By: #### L [id number] #### [facility] ([facility]) [address] [place] [address] Eosinophils/100 WBC (Bld) 1.6 % Normal 0.0-6.0 [facility] Comment on above: Performed By: #### L [id number] #### [facility] ([facility]) [address] [place] [address] Erythrocyte distribution width (RBC) [Ratio] 14.6 % Normal 11.5-15.0 [facility] Comment on above: Performed By: #### L [id number] #### [facility] ([facility]) [address] [place] [address] ERYTHROCYTE MEAN CORPUSCULAR HEMOGLOBIN CONCENTRATION (G/DL) BY AUTOMATED 32.5 g/dL Normal 32.0-35.0 [facility] Comment on above: Performed By: #### L [id number] #### [facility] LAB ([facility]) [address] [place] [address] Hematocrit (Bld) [Volume fraction] 50.1 % Normal 39.0-55.0 [facility] Comment on above: Performed By: #### L [id number] #### [facility] ([facility]) [address] [place] [address] Hemoglobin (Bld) [Mass/Vol] 16.3 g/dL Normal 13.0-17.0 [facility] Comment on above: Performed By: #### L [id number] #### [facility] ([facility]) [address] [place] [address] Immature granulocytes (Bld) [#/Vol] 0.05 10*3/uL Normal 0.00-0.20 [facility] Comment on above: Performed By: #### L [id number] #### [facility] ([facility]) [address] [place] [address] Immature granulocytes/100 WBC (Bld) 0.7 % Normal 0.0-1.0 [facility] Comment on above: Performed By: #### L [id number] #### [facility] (BEAK[facility]) [address] [place] [address] Lymphocytes (Bld) [#/Vol] 1.03 10*3/uL Low 1.20-4.00 [facility] Comment on above: Performed By: #### L [id number] #### [facility] ([facility]) [address] [place] [address] Lymphocytes/100 WBC (Bld) 13.4 % Low 20.0-45.0 [facility] Comment on above: Performed By: #### L [id number] #### [facility] ([facility]) [address] [place] [address] MCH (RBC) [Entitic mass] 29.9 pg Normal 27.0-33.0 [facility] Comment on above: Performed By: #### L [id number] #### [facility] ([facility]) [address] [place] [address] MCV (RBC) [Entitic vol] 91.8 fL Normal 82.0-98.0 [facility] Comment on above: Performed By: #### L [id number] #### [facility] ([facility]) [address] [place] [address] Monocytes (Bld) [#/Vol] 0.73 10*3/uL Normal 0.10-1.00 [facility] Comment on above: Performed By: #### L [id number] #### [facility] ([facility]) [address] [place] [address] Monocytes/100 WBC (Bld) 9.5 % Normal 5.0-12.0 [facility] Comment on above: Performed By: #### L [id number] #### [facility] ([facility]) [address] [place] [address] Neutrophils (Bld) [#/Vol] 5.69 10*3/uL Normal 1.60-7.60 [facility] Comment on above: Performed By: #### L [id number] #### [facility] ([facility]) [address] [place] [address] Neutrophils/100 WBC (Bld) 74.3 % High 40.0-72.0 [facility] Comment on above: Performed By: #### L [id number] #### [facility] ([facility]) [address] [place] [address] NRBC (PER 100 WBCS) BY AUTOMATED COUNT 0.0 % Normal 0 [facility] Comment on above: Performed By: #### L [id number] #### [facility] ([facility]) [address] [place] [address] PLATELETS (10*3/UL) IN BLOOD AUTOMATED COUNT 247 10*3/uL Normal 150-400 [facility] Comment on above: Performed By: #### L [id number] #### [facility] ([facility]) [address] [place] [address] RBC (Bld) [#/Vol] 5.46 10*6/uL Normal 4.20-5.70 [facility] Comment on above: Performed By: #### L [id number] #### [facility] ([facility]) [address] [place] [address] WBC (Bld) [#/Vol] 7.66 10*3/uL Normal 4.00-10.60 [facility] Comment on above: Performed By: #### L [id number] #### [facility] ([facility]) [address] [place] [address] COMPREHENSIVE METABOLIC PANE Nitin 12-22-2022 Albumin [Mass/Vol] 4.6 g/dL Normal 3.5-5.7 [facility] Comment on above: Performed By: #### L [id number] #### [facility] ([facility]) [address] [place] [address] ALP [Catalytic activity/Vol] 88 U/L Normal 34-104 [facility] Comment on above: Performed By: #### L [id number] #### [facility] ([facility]) [address] [place] [address] ALT [Catalytic activity/Vol] 24 U/L Normal 7-52 [facility] Comment on above: Performed By: #### L [id number] #### [facility] ([facility]) [address] [place] [address] Anion gap [Moles/Vol] 12 mmol/L Normal 7-20 [facility] Comment on above: Performed By: #### L [id number] #### [facility] ([facility]) [address] [place] [address] AST [Catalytic activity/Vol] 19 U/L Normal 13-39 [facility] Comment on above: Performed By: #### L [id number] #### [facility] ([facility]) [address] [place] [address] Bilirubin [Mass/Vol] 0.7 mg/dL Normal 0.3-1.0 [facility] Comment on above: Performed By: #### L [id number] #### [facility] ([facility]) [address] [place] [address] Calcium [Mass/Vol] 9.2 mg/dL Normal 8.6-10.3 [facility] Comment on above: Performed By: #### L [id number] #### [facility] ([facility]) [address] [place] [address] Chloride [Moles/Vol] 105 mmol/L Normal 98-107 [facility] Comment on above: Performed By: #### L [id number] #### [facility] ([facility]) [address] [place] [address] CO2 [Moles/Vol] 27 mmol/L Normal 21-31 [facility] Comment on above: Performed By: #### L [id number] #### [facility] ([facility]) [address] [place] [address] Creatinine [Mass/Vol] 1.27 mg/dL Normal 0.70-1.30 [facility] Comment on above: Performed By: #### L [id number] #### [facility] ([facility]) [address] [place] [address] GLOMERULAR FILTRATION RATE ML/MIN/1.73 SQ M.PREDICTED 64.3 mL/min/1.73m*2 Normal >60.0 [facility] Comment on above: Result Comment: The [facility]???s estimated glomerular filtration rate (eGFR) will no [...] individuals. Performed By: #### L [id number] #### [facility] ([facility]) [address] [place] [address] Glucose [Mass/Vol] 105 mg/dL High 70-100 [facility] Comment on above: Performed By: #### L [id number] #### [facility] ([facility]) [address] [place] [address] Potassium [Moles/Vol] 3.9 mmol/L Normal 3.5-5.1 [facility] Comment on above: Performed By: #### L [id number] #### [facility] ([facility]) [address] [place] [address] Protein [Mass/Vol] 6.7 g/dL Normal 6.0-8.3 [facility] Comment on above: Performed By: #### L [id number] #### [facility] ([facility]) [address] [place] [address] Sodium [Moles/Vol] 140 mmol/L Normal 136-145 [facility] Comment on above: Performed By: #### L [id number] #### [facility] ([facility]) [address] [place] [address] Urea nitrogen [Mass/Vol] 15 mg/dL Normal 7-25 [facility] Comment on above: Performed By: #### L [id number] #### [facility] ([facility]) [address] [place] [address] UREA NITROGEN/CREATININE (MASS RATIO) IN SER/PLAS 11.8 Normal [facility] Comment on above: Performed By: #### L [id number] #### [facility] ([facility]) [address] [place] [address] FERRITINon 12-22-2022 FERRITIN (NG/ML) IN SER/PLAS 32.0 ng/mL Normal 24.0-336.0 [facility] Comment on above: Performed By: #### L [id number] ####[facility] ([facility])[address] [place] [address] Follow-Upon 12-22-2022 Follow-Up [id number] Vishal Duke 1960 M Date Provider Department Center 12/22/2022 263-BOBBY MALDONADO TXP None Family History Problem Relation Age of Onset Alzheimer's disease Mother Coronary artery disease Father Family Status - Relation Status Age at Mother Father Level of Service:68927 [place] OFFICE/OUTPATIENT ESTABLISHED MOD MDM 30-39 MIN Reason for Visit and Comments: Kidney Follow-up [] Normal [facility] LIPID PANELon 12-22-2022 CHOL/HDL 2.9 mg/dL Normal [facility] Comment on above: Performed By: #### L [id number] ####[facility] ([facility])[address] [place] [address] Cholesterol [Mass/Vol] 123 mg/dL Normal 120-200 [facility] Comment on above: Performed By: #### L [id number] ####[facility] ([facility])[address] [place] [address] Magnesium [Mass/Vol] 162 mg/dL High 40-149 [facility] Comment on above: Result Comment: TRIG LYCERIDE REFERENCE RANGE: 20 YEARS AND OLDER CARDIOVASCULAR RISK LESS THAN 150 mg/dL LOW RISK 150 TO 199 mg/dL BORDERLINE RISK 200 mg/dL AND GREATER HIGH RISK Performed By: #### L [id number] ####[facility] ([facility])[address] [place] [address] Magnesium [Mass/Vol] 48 mg/dL Normal 0-160 [facility] Comment on above: Performed By: #### L [id number] ####[facility] ([facility])[address] [place] [address] Magnesium [Mass/Vol] 43 mg/dL Normal 23-92 [facility] Comment on above: Performed By: #### L [id number] ####[facility] ([facility])[address] [place] [address] NON HDL CHOL. (LDL+VLDL) 80 Normal [facility] Comment on above: Performed By: #### L [id number] ####[facility] ([facility])[address] [place] [address] TOTAL VLDL-C 32 mg/dL Normal 0-40 [facility] Comment on above: Performed By: #### L [id number] ####[facility] ([facility])[address] [place] [address] Labon 12-22-2022 Lab [id number] Vishal Duke D 1960 M Date Provider Department Center 12/22/2022 [id number] DRAW STATION KXT Draw [facility] Family History Problem Relation Age of Onset Alzheimer's disease Mother Coronary artery disease Father Family Status - Relation Status Age at Mother Father Normal [facility] MAGNESIUMon 12-22-2022 Magnesium [Mass/Vol] 1.5 mg/dL Low 1.9-2.7 [facility] Comment on above: Performed By: #### L [id number] #### [facility] ([facility]) [address] [place] [address] Orders Onlyon 12-22-2022 Orders Only [id number] Juan Diego Dukeren D 1960 M Date Provider Department Center 12/22/2022 263-EKWENNA, OBI TXP None Family History Problem Relation Age of Onset Alzheimer's disease Mother Coronary artery disease Father Family Status - Relation Status Age at Mother Father Normal [facility] Orders Only [id number] Vishal Duke D 1960 M Date Provider Department Center 12/22/2022 435-XIAO CAMPOST [facility] URO Second [place] Family History Problem Relation Age of Onset Alzheimer's disease Mother Coronary artery disease Father Family Status - Relation Status Age at Mother Father Normal [facility] PHOSPHORUSon 12-22-2022 Magnesium [Mass/Vol] 3.4 mg/dL Normal 2.5-5.0 [facility] Comment on above: Performed By: #### L [id number] #### [facility] ([facility]) [address] [place] [address] SINGLE ANTIGEN CLASS Ion AB SCREEN COMMENTS No Class I donor specific antibody identified Normal [facility] Comment on above: Performed By: #### L [id number] ####[facility] TISSUE TYPING (HISTOTRAC)[address] [place] [address] [facility] CLASS I TESTED DATE Normal [facility] Comment on above: Performed By: #### L [id number] ####[facility] TISSUE TYPING (HISTOTRAC)[address] SINGLE ANTIGEN CLASS 1 TEST METHOD Class I Single Antigen Normal [facility] Comment on above: Performed By: #### L [id number] ####[facility] TISSUE TYPING (HISTOTRAC)[address] [place] [address] [facility] SINGLE ANTIGEN CLASS IIon AB SCREEN COMMENTS No Class II donor specific antibody identified Normal [facility] Comment on above: Performed By: #### L [id number] ####[facility] TISSUE TYPING (HISTOTRAC)[address] [place] [address] [place] CLASS II TESTED DATE [facility] Comment on above: Performed By: #### L [id number] ####[facility] TISSUE TYPING (HISTOTRAC)[address] [place] [address] [facility] SIGNED BY Signed by James farrell CHT([facility]) TITI([facility]), [facility] Transplant Immunology [facility] Comment on above: Performed By: #### L [id number] ####[facility] TISSUE TYPING (HISTOTRAC)[address] [place] [address] [facility] Result Comment: Clas s I Antigen Microbeads Performed By: #### L [id number] ####[facility] TISSUE TYPING (HISTOTRAC)[address] SINGLE ANTIGEN CLASS 2 TEST METHOD Class II Single Antigen Normal [facility] Comment on above: Result Comment: Clas s II Antigen Microbeads Performed By: #### L [id number] ####[facility] TISSUE TYPING (HISTOTRAC)[address] [place] [address] [place] TACROLIMUS LEVELon Tacrolimus (Bld) [Mass/Vol] 7.9 ng/mL Normal 5.0-20.0 [facility] Comment on above: Result Comment: The [employer] Tacrolimus assay is a delayed one-step immunoassay for the quantitative determination of tacrolimus in human whole blood using the chemiluminescent microparticle immunoassay (CMIA) technology with flexible assay protocols, referred to as Chemiflex. Performed By: #### L [id number] #### [facility] (BEAKER) [address] [place] [address] URIC ACIDon 12-22-2022 Magnesium [Mass/Vol] 4.9 mg/dL Normal 4.4-7.6 [facility] Comment on above: Performed By: #### L [id number] ####[facility] (BEAKER)[address] [place] [address] Office Visiton 12-05-2022 Follow-up visit [id number] Vishal Duke 1960 M Date Provider Department Center 12/05/2022 [place] MICHELLE [place] Family History Problem Relation Age of Onset Alzheimer's disease Mother Coronary artery disease Father Family Status - Relation Status Age at Mother Father Level of Service:17323 [place] OFFICE/OUTPATIENT ESTABLISHED LOW MDM 20-29 MIN Normal [facility] Orders Onlyon 12-05-2022 Orders Only [id number] Vishal Duke 1960 M Date Provider Department Center 12/05/2022 LASHONDA MCLEOD MICHELLE [facility] Family History Problem Relation Age of Onset Alzheimer's disease Mother Coronary artery disease Father Family Status - Relation Status Age at Mother Father Normal [facility] CT CHEST WO IV CONTRASTon CT CHEST [...] without contrast. Electronically signed: ONELIA WHITE. Normal [facility] Documentationon 11-01-2022 Documentation [id number] Vishal Duke 1960 M [facility] Provider Department Center 11/01/2022 3193-TIM FOY None Family History Problem Relation Age of Onset Alzheimer's disease Mother Coronary artery disease Father Family Status - Relation Status Age at Mother Father Normal [facility] Office Visiton 10-24-2022 Follow-up visit [id number] Vishal Duke 1960 M [facility] Provider Department Center 10/24/2022 3861-MADIE BROWN [facility] Comprehensiv Family History Problem Relation Age of Onset Alzheimer's disease Mother Coronary artery disease Father Family Status - Relation Status Age at Mother Father Level of Service:50161 [place] OFFICE/OUTPATIENT ESTABLISHED LOW MDM 20-29 MIN (GC) Reason for Visit and Comments: Breathing Problem [17] - More SOB and coughing with weather and air quality changes [facility] Documentationon 10-13-2022 Documentation [id number] Vishal Duke 1960 M Date Provider Department Center 10/13/2022 3193-TIM FOY None Family History Problem Relation Age of Onset Alzheimer's disease Mother Coronary artery disease Father Family Status - Relation Status Age at Mother Father [facility] Documentationon 10-06-2022 Documentation [id number] Vishal Duke 1960 M Date Provider Department Center 10/06/2022 319[address]ut-TIM FOY None Family History Problem Relation Age of Onset Alzheimer's disease Mother Coronary artery disease Father Family Status - Relation Status Age at Mother Father [facility] 29on 09-27-2022 29 Addended by: DEREK PETERS on: 09/27/2022 12:23 PM Modules accepted: Orders [facility] Follow-Upon 09-27-2022 Follow-Up [id number] Vishal Duke 1960 M Date Provider Department Center 09/27/2022 124-PETEY REDDING None Family History Problem Relation Age of Onset Alzheimer's disease Mother Coronary artery disease Father Family Status - Relation Status Age at Mother Father Level of Service:80000 [place] OFFICE/OUTPATIENT ESTABLISHED LOW MDM 20-29 MIN Reason for Visit and Comments: Kidney Follow-up [[id number]] - No major concerns today [facility] Documentationon 09-06-2022 Documentation [id number] Vishal Duke 1960 M Date Provider Department Center 09/06/2022 319TIM AGUIRRE None Family History Problem Relation Age of Onset Alzheimer's disease Mother Coronary artery disease Father Family Status - Relation Status Age at Mother Father [facility] FK506 (TACROLIMUS) WHOLE BLO ODon 08-21-2022 Tacrolimus (FK506), Blood 6.0 ng/mL Normal 2.0-20.0 [facility] Comment on above: Result Comment: Trou gh (immediately following transplant) 15.0 . Trough (steady state, 2 weeks or more after transplant): 3.0 - 8.0 . Performed by LC-MS/MS technology. Performed By: #### P HOS, URIC, MG, CMP, DBIL, LIPID #### [facility] [address] [place] [address] Dr. Karla Lagos BK VIRUS PCR QUANTon 023 BKV DNA QUANT PCR PLASMA Negative Normal Negative [facility] Comment on above: Result Comment: No B K DNA detected. . The linear range of the assay is 22 - 100,000,000 IU/mL. Performed By: #### P HOS, URIC, MG, CMP, DBIL, LIPID #### [facility] [address] [place] [address] Dr. Karla Lagos Log10 BKV DNA Plasma Normal [facility] Comment on above: Performed By: #### P HOS, URIC, MG, CMP, DBIL, LIPID #### [facility] [address] [place] [address] Dr. Karla Lagos BILIRUBIN CONJUGATED (DIRECT )on 08-18-2022 BILI, CONJUGATED 0.2 mg/dL Normal 0.0-0.2 [facility] Comment on above: Performed By: #### P HOS, URIC, MG, CMP, DBIL, LIPID #### [facility] [address] [place] [address] Dr. Karla Lagos CBC AUTO DIFFon 08-18-2022 BASO # 0.1 103/ul Normal 0.0-0.1 [facility] Comment on above: Performed By: #### P HOS, URIC, MG, CMP, DBIL, LIPID #### [facility] [address] [place] [address] Dr. Karla Lagos Basophils/100 WBC (Bld) 1.0 % Normal 0.2-2.0 [facility] Comment on above: Performed By: #### P HOS, URIC, MG, CMP, DBIL, LIPID #### [facility] [address] [place] [address] Dr. Karla Lagos EO # 0.1 103/ul Normal 0.0-0.7 [facility] Comment on above: Performed By: #### P HOS, URIC, MG, CMP, DBIL, LIPID #### [facility] [address] [place] [address] Dr. Karla Lagos Eosinophils/100 WBC (Bld) 1.3 % Normal 0.9-7.0 [facility] Comment on above: Performed By: #### P HOS, URIC, MG, CMP, DBIL, LIPID #### [facility] [address] [place] [address] Dr. Karla Lagos Erythrocyte distribution width (RBC) [Ratio] 14.0 % Normal 11.0-15.0 [facility] Comment on above: Performed By: #### P HOS, URIC, MG, CMP, DBIL, LIPID #### [facility] [address] [place] [address] Dr. Karla Lagos Hematocrit (Bld) [Volume fraction] 52.7 % Normal 42.0-54.0 [facility] Comment on above: Performed By: #### P HOS, URIC, MG, CMP, DBIL, LIPID #### [facility] [address] [place] [address] Dr. Karla Lagos Hemoglobin (Bld) [Mass/Vol] 17.0 g/dL Normal 14.0-18.0 [facility] Comment on above: Performed By: #### P HOS, URIC, MG, CMP, DBIL, LIPID #### [facility] [address] [place] [address] Dr. Karla Lagos IG # 0.03 10e3/ul Normal 0.00-0.03 [facility] Comment on above: Performed By: #### P HOS, URIC, MG, CMP, DBIL, LIPID #### [facility] [address] [place] [address] Dr. Karla Lagos IG % 0.4 % Normal 0.0-0.5 [facility] Comment on above: Performed By: #### P HOS, URIC, MG, CMP, DBIL, LIPID #### [facility] [address] [place] [address] Dr. Karla Lagos LYMPH # 1.1 103/ul Critically low 1.2-3.8 [facility] Comment on above: Performed By: #### P HOS, URIC, MG, CMP, DBIL, LIPID #### [facility] [address] [place] [address] Dr. Karla Lagos Lymphocytes/100 WBC (Bld) 16.0 % Critically low 20.5-60.0 [facility] Comment on above: Performed By: #### P HOS, URIC, MG, CMP, DBIL, LIPID #### [facility] [address] [place] [address] Dr. Karla Lagos MANUAL DIFF REQ NO Normal [facility] Comment on above: Performed By: #### P HOS, URIC, MG, CMP, DBIL, LIPID #### [facility] [address] [place] [address] Dr. Karla Lagos MCH (RBC) [Entitic mass] 29.9 pg Normal 25.9-34.0 [facility] Comment on above: Performed By: #### P HOS, URIC, MG, CMP, DBIL, LIPID #### [facility] [address] [place] [address] Dr. Karla Lagos MCHC (RBC) [Mass/Vol] 32.3 g/dL Normal 29.9-35.2 [facility] Comment on above: Performed By: #### P HOS, URIC, MG, CMP, DBIL, LIPID #### [facility] [address] [place] [address] Dr. Karla Lagos MCV (RBC) [Entitic vol] 92.6 fL Normal 80.0-94.0 [facility] Comment on above: Performed By: #### P HOS, URIC, MG, CMP, DBIL, LIPID #### [facility] [address] [place] [address] Dr. Karla Lagos MONO # 0.7 103/ul Normal 0.3-0.8 [facility] Comment on above: Performed By: #### P HOS, URIC, MG, CMP, DBIL, LIPID #### [facility] [address] [place] [address] Dr. Karla Lagos Monocytes/100 WBC (Bld) 10.6 % Normal 1.7-12.0 [facility] Comment on above: Performed By: #### P HOS, URIC, MG, CMP, DBIL, LIPID #### [facility] [address] [place] [address] Dr. Karla Lagos NEUT # 5.0 103/ul Normal 1.4-6.5 [facility] Comment on above: Performed By: #### P HOS, URIC, MG, CMP, DBIL, LIPID #### [facility] [address] [place] [address] Dr. Karla Lagos Neutrophils/100 WBC (Bld) 70.7 % Normal 43.0-75.0 [facility] Comment on above: Performed By: #### P HOS, URIC, MG, CMP, DBIL, LIPID #### [facility] [address] [place] [address] Dr. Karla Lagos Platelet mean volume (Bld) [Entitic vol] 10.3 fL Normal 9.5-13.5 [facility] Comment on above: Performed By: #### P HOS, URIC, MG, CMP, DBIL, LIPID #### [facility] [address] [place] [address] Dr. Kalra Lagos PLT 263 103/ul Normal 150-450 [facility] Comment on above: Performed By: #### P HOS, URIC, MG, CMP, DBIL, LIPID #### [facility] [address] [place] [address] Dr. Karla Laogs RBC 5.69 106/ul Normal 4.70-6.10 [facility] Comment on above: Performed By: #### P HOS, URIC, MG, CMP, DBIL, LIPID #### [facility] [address] [place] [address] Dr. Karla Lagos WBC 7.0 103/ul Normal 4.0-11.0 [facility] Comment on above: Performed By: #### P HOS, URIC, MG, CMP, DBIL, LIPID #### [facility] [address] [place] [address] Dr. Karla Lagos LIPID PROFILEon 08-18-2022 CHOL-HDL RATIO NORM SEE BELOW Normal [facility] Comment on above: Result Comment: 3.3 - 4.4 LOW RISK 4.4 - 7.1 AVERAGE RISK 7.1 - 11.0 MODERATE RISK >11.0 HIGH RISK Performed By: #### P HOS, URIC, MG, CMP, DBIL, LIPID #### [facility] [address] [address] [address] Karla Lagos Cholesterol [Mass/Vol] 137 mg/dL Normal <=200 [facility] Comment on above: Performed By: #### P HOS, URIC, MG, CMP, DBIL, LIPID #### [facility] [address] [address] [address] Karla Lagos Cholesterol in HDL [Mass/Vol] 45 mg/dL Normal 40-60 [facility] Comment on above: Performed By: #### P HOS, URIC, MG, CMP, DBIL, LIPID #### [facility] [address] [address] [address] Karla Lagos Cholesterol in LDL [Mass/Vol] 59.0 mg/dL Normal [facility] Comment on above: Performed By: #### P HOS, URIC, MG, CMP, DBIL, LIPID #### [facility] [address] [address] [address] Karla Lagos Cholesterol.total/C holesterol in HDL [Mass ratio] 3.0 {ratio} Normal [facility] Comment on above: Performed By: #### P HOS, URIC, MG, CMP, DBIL, LIPID #### [facility] [address] [address] [address] Karla Lagos HDL NORMAL > or = 60 mg/dl - LO W CARDIOVASCULAR RISK <40 mg/dl - HIGH CARDIOVASCULAR RISK Normal [facility] Comment on above: Performed By: #### P HOS, URIC, MG, CMP, DBIL, LIPID #### [facility] [address] [address] [address] Karla Lagos LDL CALC NORMAL SEE BELOW Normal [facility] Comment on above: Result Comment: <100 mg/dl OPTIMAL 100 - 129 mg/dl NEAR OR ABOVE OPTIMAL 130 - 159 mg/dl BORDERLINE HIGH 160 - 189 mg/dl HIGH >190 mg/dl VERY HIGH Performed By: #### P HOS, URIC, MG, CMP, DBIL, LIPID #### [facility] [address] [address] [address] Karla Lagos Triglyceride [Mass/Vol] 165 mg/dL Critically high <=150 [facility] Comment on above: Performed By: #### P HOS, URIC, MG, CMP, DBIL, LIPID #### [facility] [address] [address] [address] Karla Lagos VLDL CALC 33.0 mg/dL Normal [facility] Comment on above: Performed By: #### P HOS, URIC, MG, CMP, DBIL, LIPID #### [facility] [address] [address] [address] Karla Lagos MAGNESIUMon 08-18-2022 Magnesium [Mass/Vol] 1.7 mg/dL Critically low 1.8-2.4 [facility] Comment on above: Performed By: #### P HOS, URIC, MG, CMP, DBIL, LIPID #### [facility] [address] [address] [address] Karla Lagos Orders Onlyon 08-18-2022 Orders Only [id number] Vishal Duke 1960 M Date Provider Department Center 08/18/2022 [id number], OBI [facility] 2A Second Fl Family History Problem Relation Age of Onset Alzheimer's disease Mother Coronary artery disease Father Family Status - Relation Status Age at Mother Father Normal [facility] Orders Only [id number] Vishal Duke 1960 M Date Provider Department Center 08/18/2022 [id number]-FARRUKH BLANCASP None Family History Problem Relation Age of Onset Alzheimer's disease Mother Coronary artery disease Father Family Status - Relation Status Age at Mother Father Normal [facility] PHOSPHORUSon 08-18-2022 Phosphate [Mass/Vol] 3.6 mg/dL Normal 2.6-4.7 [facility] Comment on above: Performed By: #### P HOS, URIC, MG, CMP, DBIL, LIPID #### [facility] [address] [place] [address] Dr. Karla Lagos PROF 14(COMP METB)on 023 Albumin [Mass/Vol] 4.0 g/dL Normal 3.4-5.0 [facility] Comment on above: Performed By: #### P HOS, URIC, MG, CMP, DBIL, LIPID #### [facility] [address] [place] [address] Dr. Karla Lagos Albumin/Globulin [Mass ratio] 1.1 {ratio} Normal [facility] Comment on above: Performed By: #### P HOS, URIC, MG, CMP, DBIL, LIPID #### [facility] [address] [place] [address] Dr. Karla Lagos ALP [Catalytic activity/Vol] 96 U/L Normal 46-116 [facility] Comment on above: Performed By: #### P HOS, URIC, MG, CMP, DBIL, LIPID #### [facility] [address] [place] [address] Dr. Karla Lagos ALT [Catalytic activity/Vol] 42 U/L Normal 16-63 [facility] Comment on above: Performed By: #### P HOS, URIC, MG, CMP, DBIL, LIPID #### [facility] [address] [place] [address] Dr. Karla Lagos Anion gap [Moles/Vol] 12.9 mmol/L Normal [facility] Comment on above: Performed By: #### P HOS, URIC, MG, CMP, DBIL, LIPID #### [facility] [address] [place] [address] Dr. Karla Lagos AST [Catalytic activity/Vol] 22 U/L Normal 15-37 [facility] Comment on above: Performed By: #### P HOS, URIC, MG, CMP, DBIL, LIPID #### [facility] [address] [place] [address] Dr. Karla Lagos Bilirubin [Mass/Vol] 0.7 mg/dL Normal 0.2-1.0 [facility] Comment on above: Performed By: #### P HOS, URIC, MG, CMP, DBIL, LIPID #### [facility] [address] [address] [address] Karla Lagos Calcium [Mass/Vol] 9.4 mg/dL Normal 8.5-10.1 [facility] Comment on above: Performed By: #### P HOS, URIC, MG, CMP, DBIL, LIPID #### [facility] [address] [address] [address] Karla Lagos Chloride [Moles/Vol] 103 mmol/L Normal 98-107 [facility] Comment on above: Performed By: #### P HOS, URIC, MG, CMP, DBIL, LIPID #### [facility] [address] [place] [address] Dr. Karla Lagos CO2 [Moles/Vol] 27.8 mmol/L Normal 21.0-32.0 [facility] Comment on above: Performed By: #### P HOS, URIC, MG, CMP, DBIL, LIPID #### [facility] [address] [place] [address] Dr. Karla Lagos Creatinine [Mass/Vol] 1.28 mg/dL Normal 0.70-1.30 [facility] Comment on above: Performed By: #### P HOS, URIC, MG, CMP, DBIL, LIPID #### [facility] [address] [place] [address] Dr. Karla Lagos EGFR-AF TAJIK >60 Normal >=60 [facility] Comment on above: Performed By: #### P HOS, URIC, MG, CMP, DBIL, LIPID #### [facility] [address] [place] [address] Dr. Karla Lagos EGFR-NON AF TAJIK 57 mL/min/1.73m2 Critically low >=60 [facility] Comment on above: Performed By: #### P HOS, URIC, MG, CMP, DBIL, LIPID #### [facility] [address] [place] [address] Dr. Karla Lagos Globulin (S) [Mass/Vol] 3.5 g/dL Normal [facility] Comment on above: Performed By: #### P HOS, URIC, MG, CMP, DBIL, LIPID #### [facility] [address] [address] [address] Karla Lagos Glucose [Mass/Vol] 123 mg/dL Critically high 74-106 [facility] Comment on above: Performed By: #### P HOS, URIC, MG, CMP, DBIL, LIPID #### [facility] [address] [address] [address] Karla Lagos Potassium [Moles/Vol] 4.7 mmol/L Normal 3.5-5.1 [facility] Comment on above: Performed By: #### P HOS, URIC, MG, CMP, DBIL, LIPID #### [facility] [address] [place] [address] Dr. Karla Lagos Protein [Mass/Vol] 7.5 g/dL Normal 6.4-8.2 [facility] Comment on above: Performed By: #### P HOS, URIC, MG, CMP, DBIL, LIPID #### [facility] [address] [place] [address] Dr. Karla Lagos Sodium [Moles/Vol] 139 mmol/L Normal 136-145 [facility] Comment on above: Performed By: #### P HOS, URIC, MG, CMP, DBIL, LIPID #### [facility] [address] [place] [address] Dr. Karla Lagos Urea nitrogen [Mass/Vol] 22.0 mg/dL Critically high 7.0-18.0 [facility] Comment on above: Performed By: #### P HOS, URIC, MG, CMP, DBIL, LIPID #### [facility] [address] [place] [address] Dr. Karla Lagos Urea nitrogen/Creatinine [Mass ratio] 17.2 mg/mg Normal [facility] Comment on above: Performed By: #### P HOS, URIC, MG, CMP, DBIL, LIPID #### [facility] [address] [place] [address] Dr. Karla Lagos URIC ACID SERUMon 08-18-2022 Urate [Mass/Vol] 4.8 mg/dL Normal 3.5-7.2 [facility] Comment on above: Performed By: #### P HOS, URIC, MG, CMP, DBIL, LIPID #### [facility] [address] [address] [address] Karla Lagos 29on 07-29-2022 29 Addended by: DANIELLAROSA M on: 08/03/2022 02:03 PM Modules accepted: Orders Normal [facility] Office Visiton 07-29-2022 Follow-up visit [id number] ZuleikaVishal D 1960 M Date Provider Department Center 07/29/2022 [id number], KELVIN CCC PULM Comprehensiv Family History Problem Relation Age of Onset Alzheimer's disease Mother Coronary artery disease Father Family Status - Relation Status Age at Mother Father Level of Service:[id number] [place] OFFICE/OUTPATIENT ESTABLISHED MOD MDM 30-39 MIN (GC) Reason for Visit and Comments: Shortness of Breath [967149] - Pt reports being SOB and coughing since he had covid two years ago. Normal [facility] BK VIRUS PCR QUANTon 023 BKV DNA QUANT PCR PLASMA Negative Normal Negative [facility] Comment on above: Result Comment: No B K DNA detected. . The linear range of the assay is 22 - 100,000,000 IU/mL. Performed By: #### B KVIRUS #### [facility] [address] [place] [address] Dr. Karla Lagos Log10 BKV DNA Plasma Normal [facility] Comment on above: Performed By: #### B KVIRUS #### [facility] [address] [address] [address] Karla Lagos FK506 (TACROLIMUS) WHOLE BLO ODon 07-21-2022 Tacrolimus (FK506), Blood 6.1 ng/mL Normal 2.0-20.0 [facility] Comment on above: Result Comment: Trou gh (immediately following transplant) 15.0 . Trough (steady state, 2 weeks or more after transplant): 3.0 - 8.0 . Performed by LC-MS/MS technology. Performed By: #### P HOS, URIC, MG, CMP, DBIL, LIPID #### [facility] [address] [place] [address] Dr. Karla Lagos BILIRUBIN CONJUGATED (DIRECT )on 07-19-2022 BILI, CONJUGATED 0.2 mg/dL Normal 0.0-0.2 [facility] Comment on above: Performed By: #### P HOS, URIC, MG, CMP, DBIL, LIPID #### [facility] [address] [place] [address] Dr. Karla Lagos CBC AUTO DIFFon 07-19-2022 BASO # 0.0 103/ul Normal 0.0-0.1 [facility] Comment on above: Performed By: #### P HOS, URIC, MG, CMP, DBIL, LIPID #### [facility] [address] [place] [address] Dr. Karla Lagos Basophils/100 WBC (Bld) 0.4 % Normal 0.2-2.0 [facility] Comment on above: Performed By: #### P HOS, URIC, MG, CMP, DBIL, LIPID #### [facility] [address] [place] [address] Dr. Karla Lagos EO # 0.1 103/ul Normal 0.0-0.7 [facility] Comment on above: Performed By: #### P HOS, URIC, MG, CMP, DBIL, LIPID #### [facility] [address] [place] [address] Dr. Karla Lagos Eosinophils/100 WBC (Bld) 1.6 % Normal 0.9-7.0 [facility] Comment on above: Performed By: #### P HOS, URIC, MG, CMP, DBIL, LIPID #### [facility] [address] [place] [address] Dr. Karla Lagos Erythrocyte distribution width (RBC) [Ratio] 14.2 % Normal 11.0-15.0 [facility] Comment on above: Performed By: #### P HOS, URIC, MG, CMP, DBIL, LIPID #### [facility] [address] [place] [address] Dr. Karla Lagos Hematocrit (Bld) [Volume fraction] 49.8 % Normal 42.0-54.0 [facility] Comment on above: Performed By: #### P HOS, URIC, MG, CMP, DBIL, LIPID #### [facility] [address] [place] [address] Dr. Karla Lagos Hemoglobin (Bld) [Mass/Vol] 16.6 g/dL Normal 14.0-18.0 [facility] Comment on above: Performed By: #### P HOS, URIC, MG, CMP, DBIL, LIPID #### [facility] [address] [address] [address] Karla Lagos IG # 0.03 10e3/ul Normal 0.00-0.03 [facility] Comment on above: Performed By: #### P HOS, URIC, MG, CMP, DBIL, LIPID #### [facility] [address] [place] [address] Dr. Karla Lagos IG % 0.4 % Normal 0.0-0.5 [facility] Comment on above: Performed By: #### P HOS, URIC, MG, CMP, DBIL, LIPID #### [facility] [address] [place] [address] Dr. Karla Lagos LYMPH # 1.1 103/ul Critically low 1.2-3.8 [facility] Comment on above: Performed By: #### P HOS, URIC, MG, CMP, DBIL, LIPID #### [facility] [address] [place] [address] Dr. Karla Lagos Lymphocytes/100 WBC (Bld) 14.9 % Critically low 20.5-60.0 [facility] Comment on above: Performed By: #### P HOS, URIC, MG, CMP, DBIL, LIPID #### [facility] [address] [place] [address] Dr. Karla Lagos MANUAL DIFF REQ NO Normal [facility] Comment on above: Performed By: #### P HOS, URIC, MG, CMP, DBIL, LIPID #### [facility] [address] [place] [address] Dr. Karla Lagos MCH (RBC) [Entitic mass] 30.4 pg Normal 25.9-34.0 [facility] Comment on above: Performed By: #### P HOS, URIC, MG, CMP, DBIL, LIPID #### [facility] [address] [place] [address] Dr. Karla Lagos MCHC (RBC) [Mass/Vol] 33.3 g/dL Normal 29.9-35.2 [facility] Comment on above: Performed By: #### P HOS, URIC, MG, CMP, DBIL, LIPID #### [facility] [address] [place] [address] Dr. Karla Lagos MCV (RBC) [Entitic vol] 91.2 fL Normal 80.0-94.0 [facility] Comment on above: Performed By: #### P HOS, URIC, MG, CMP, DBIL, LIPID #### [facility] [address] [place] [address] Dr. Karla Lagos MONO # 0.7 103/ul Normal 0.3-0.8 [facility] Comment on above: Performed By: #### P HOS, URIC, MG, CMP, DBIL, LIPID #### [facility] [address] [place] [address] Dr. Karla Lagos Monocytes/100 WBC (Bld) 10.3 % Normal 1.7-12.0 [facility] Comment on above: Performed By: #### P HOS, URIC, MG, CMP, DBIL, LIPID #### [facility] [address] [place] [address] Dr. Karla Lagos NEUT # 5.1 103/ul Normal 1.4-6.5 [facility] Comment on above: Performed By: #### P HOS, URIC, MG, CMP, DBIL, LIPID #### [facility] [address] [place] [address] Dr. Karla Lagos Neutrophils/100 WBC (Bld) 72.4 % Normal 43.0-75.0 [facility] Comment on above: Performed By: #### P HOS, URIC, MG, CMP, DBIL, LIPID #### [facility] [address] [place] [address] Dr. Karla Lagos Platelet mean volume (Bld) [Entitic vol] 10.4 fL Normal 9.5-13.5 [facility] Comment on above: Performed By: #### P HOS, URIC, MG, CMP, DBIL, LIPID #### [facility] [address] [address] [address] Karla Lagos PLT 248 103/ul Normal 150-450 [facility] Comment on above: Performed By: #### P HOS, URIC, MG, CMP, DBIL, LIPID #### [facility] [address] [address] [address] Karla Lagos RBC 5.46 106/ul Normal 4.70-6.10 [facility] Comment on above: Performed By: #### P HOS, URIC, MG, CMP, DBIL, LIPID #### [facility] [address] [place] [address] Dr. Karla Lagos WBC 7.1 103/ul Normal 4.0-11.0 [facility] Comment on above: Performed By: #### P HOS, URIC, MG, CMP, DBIL, LIPID #### [facility] [address] [place] [address] Dr. Karla Lagos LIPID PROFILEon 07-19-2022 CHOL-HDL RATIO NORM SEE BELOW Normal [facility] Comment on above: Result Comment: 3.3 - 4.4 LOW RISK 4.4 - 7.1 AVERAGE RISK 7.1 - 11.0 MODERATE RISK >11.0 HIGH RISK Performed By: #### P HOS, URIC, MG, CMP, DBIL, LIPID #### [facility] [address] [place] [address] Dr. Karla Lagos Cholesterol [Mass/Vol] 130 mg/dL Normal <=200 [facility] Comment on above: Performed By: #### P HOS, URIC, MG, CMP, DBIL, LIPID #### [facility] [address] [place] [address] Dr. Karla Lagos Cholesterol in HDL [Mass/Vol] 43 mg/dL Normal 40-60 [facility] Comment on above: Performed By: #### P HOS, URIC, MG, CMP, DBIL, LIPID #### [facility] [address] [address] [address] Karla Lagos Cholesterol in LDL [Mass/Vol] 61.8 mg/dL Normal [facility] Comment on above: Performed By: #### P HOS, URIC, MG, CMP, DBIL, LIPID #### [facility] [address] [address] [address] Karla Lagos Cholesterol.total/C holesterol in HDL [Mass ratio] 3.0 {ratio} Normal [facility] Comment on above: Performed By: #### P HOS, URIC, MG, CMP, DBIL, LIPID #### [facility] [address] [address] [address] Karla Lagos HDL NORMAL > or = 60 mg/dl - LO W CARDIOVASCULAR RISK <40 mg/dl - HIGH CARDIOVASCULAR RISK Normal [facility] Comment on above: Performed By: #### P HOS, URIC, MG, CMP, DBIL, LIPID #### [facility] [address] [address] [address] Karla Lagos LDL CALC NORMAL SEE BELOW Normal [facility] Comment on above: Result Comment: <100 mg/dl OPTIMAL 100 - 129 mg/dl NEAR OR ABOVE OPTIMAL 130 - 159 mg/dl BORDERLINE HIGH 160 - 189 mg/dl HIGH >190 mg/dl VERY HIGH Performed By: #### P HOS, URIC, MG, CMP, DBIL, LIPID #### [facility] [address] [address] [address] Karla Lagos Triglyceride [Mass/Vol] 126 mg/dL Normal <=150 [facility] Comment on above: Performed By: #### P HOS, URIC, MG, CMP, DBIL, LIPID #### [facility] [address] [address] [address] Karla Lagos VLDL CALC 25.2 mg/dL Normal [facility] Comment on above: Performed By: #### P HOS, URIC, MG, CMP, DBIL, LIPID #### [facility] [address] [address] [address] Karla Lagos MAGNESIUMon 07-19-2022 Magnesium [Mass/Vol] 1.7 mg/dL Critically low 1.8-2.4 [facility] Comment on above: Performed By: #### P HOS, URIC, MG, CMP, DBIL, LIPID #### [facility] [address] [place] [address] Dr. Karla Lagos PHOSPHORUSon 07-19-2022 Phosphate [Mass/Vol] 3.1 mg/dL Normal 2.6-4.7 [facility] Comment on above: Performed By: #### P HOS, URIC, MG, CMP, DBIL, LIPID #### [facility] [address] [place] [address] Dr. Karla Lagos PROF 14(COMP METB)on 023 Albumin [Mass/Vol] 4.0 g/dL Normal 3.4-5.0 [facility] Comment on above: Performed By: #### P HOS, URIC, MG, CMP, DBIL, LIPID #### [facility] [address] [place] [address] Dr. Karla Lagos Albumin/Globulin [Mass ratio] 1.3 {ratio} Normal [facility] Comment on above: Performed By: #### P HOS, URIC, MG, CMP, DBIL, LIPID #### [facility] [address] [place] [address] Dr. Karla Lagos ALP [Catalytic activity/Vol] 79 U/L Normal 46-116 [facility] Comment on above: Performed By: #### P HOS, URIC, MG, CMP, DBIL, LIPID #### [facility] [address] [place] [address] Dr. Karla Lagos ALT [Catalytic activity/Vol] 40 U/L Normal 16-63 [facility] Comment on above: Performed By: #### P HOS, URIC, MG, CMP, DBIL, LIPID #### [facility] [address] [place] [address] Dr. Karla Lagos Anion gap [Moles/Vol] 12.8 mmol/L Normal [facility] Comment on above: Performed By: #### P HOS, URIC, MG, CMP, DBIL, LIPID #### [facility] [address] [place] [address] Dr. Karla Lagos AST [Catalytic activity/Vol] 24 U/L Normal 15-37 [facility] Comment on above: Performed By: #### P HOS, URIC, MG, CMP, DBIL, LIPID #### [facility] [address] [place] [address] Dr. Karla Lagos Bilirubin [Mass/Vol] 0.7 mg/dL Normal 0.2-1.0 [facility] Comment on above: Performed By: #### P HOS, URIC, MG, CMP, DBIL, LIPID #### [facility] [address] [place] [address] Dr. Karla Lagos Calcium [Mass/Vol] 9.3 mg/dL Normal 8.5-10.1 [facility] Comment on above: Performed By: #### P HOS, URIC, MG, CMP, DBIL, LIPID #### [facility] [address] [place] [address] Dr. Karla Lagos Chloride [Moles/Vol] 105 mmol/L Normal 98-107 [facility] Comment on above: Performed By: #### P HOS, URIC, MG, CMP, DBIL, LIPID #### [facility] [address] [place] [address] Dr. Karla Lagos CO2 [Moles/Vol] 28.4 mmol/L Normal 21.0-32.0 [facility] Comment on above: Performed By: #### P HOS, URIC, MG, CMP, DBIL, LIPID #### [facility] [address] [place] [address] Dr. Karla Lagos Creatinine [Mass/Vol] 1.23 mg/dL Normal 0.70-1.30 [facility] Comment on above: Performed By: #### P HOS, URIC, MG, CMP, DBIL, LIPID #### [facility] [address] [place] [address] Dr. Karla Lagos EGFR-AF TAJIK >60 Normal >=60 [facility] Comment on above: Performed By: #### P HOS, URIC, MG, CMP, DBIL, LIPID #### [facility] [address] [place] [address] Dr. Karla Lagos EGFR-NON AF TAJIK =60 Normal >=60 [facility] Comment on above: Performed By: #### P HOS, URIC, MG, CMP, DBIL, LIPID #### [facility] [address] [place] [address] Dr. Karla Lagos Globulin (S) [Mass/Vol] 3.1 g/dL Normal [facility] Comment on above: Performed By: #### P HOS, URIC, MG, CMP, DBIL, LIPID #### [facility] [address] [place] [address] Dr. Karla Lagos Glucose [Mass/Vol] 114 mg/dL Critically high 74-106 [facility] Comment on above: Performed By: #### P HOS, URIC, MG, CMP, DBIL, LIPID #### [facility] [address] [place] [address] Dr. Karla Lagos Potassium [Moles/Vol] 4.2 mmol/L Normal 3.5-5.1 [facility] Comment on above: Performed By: #### P HOS, URIC, MG, CMP, DBIL, LIPID #### [facility] [address] [place] [address] Dr. Karla Lagos Protein [Mass/Vol] 7.1 g/dL Normal 6.4-8.2 [facility] Comment on above: Performed By: #### P HOS, URIC, MG, CMP, DBIL, LIPID #### [facility] [address] [place] [address] Dr. Karla Lagos Sodium [Moles/Vol] 142 mmol/L Normal 136-145 [facility] Comment on above: Performed By: #### P HOS, URIC, MG, CMP, DBIL, LIPID #### [facility] [address] [place] [address] Dr. Karla Lagos Urea nitrogen [Mass/Vol] 15.0 mg/dL Normal 7.0-18.0 [facility] Comment on above: Performed By: #### P HOS, URIC, MG, CMP, DBIL, LIPID #### [facility] [address] [place] [address] Dr. Karla Lagos Urea nitrogen/Creatinine [Mass ratio] 12.2 mg/mg Normal [facility] Comment on above: Performed By: #### P HOS, URIC, MG, CMP, DBIL, LIPID #### [facility] [address] [place], [place] [address] Dr. Karla Lagos URIC ACID SERUMon 07-19-2022 Urate [Mass/Vol] 5.1 mg/dL Normal 3.5-7.2 [facility] Comment on above: Performed By: #### P HOS, URIC, MG, CMP, DBIL, LIPID #### [facility] [address] [place], [place] [address] Dr. Karla Lagos BILIRUBIN, DIRECTon 06-17-19 Magnesium [Mass/Vol] 0.2 mg/dL Normal 0-0.2 [facility] Comment on above: Performed By: #### L [id number] #### [facility] ([facility]) [address] [place] [address] BK VIRUS, PLASMA, QUANTITATI VEon 06-16-2022 BK QUANTITATION Not detected Normal [facility] Comment on above: Result Comment: Meth od: BK virus was measured by quantitative polymerase chain reaction using a fluorescent hydrolysis probe targeting the polyomavirus BK JET DYEING MACHINE OPERATOR-1 gene. The lower limit of quantitation of the assay is 500 copies of BK genome per milliliter of plasma or urine, and any detectable BK DNA below that level is reported as: Detected, <500 copies/ml. Serial BK virus measurement can be used to monitor disease activity. (Reference: Kenneth ronl. J CLIN MICRO 2004; 42:5541-7072). This test was developed and its performance characteristics determined by the [facility]. It has not been approved by the US Food and Drug Administration. However, such approval is not required for clinical implementation, and test results have been shown to be clinically useful. This laboratory is CAP accredited and CLIA certified to perform high complexity testing. Performed By: #### L [id number] #### [facility] ([facility]) [address] [place] [address] BK QUANTITATION LOG Not detected Normal [facility] Comment on above: Performed By: #### L [id number] #### [facility] ([facility]) [address] [place] [address] CBC WITH AUTO DIFFERENTIALon 06-16-2022 Basophils (Bld) [#/Vol] 0.07 10*3/uL Normal 0.00-0.20 [facility] Comment on above: Performed By: #### L [id number] #### [facility] ([facility]) [address] [place] [address] Basophils/100 WBC (Bld) 1.0 % Normal 0.0-1.0 [facility] Comment on above: Performed By: #### L [id number] #### [facility] ([facility]) [address] [address] Eosinophils (Bld) [#/Vol] 0.13 10*3/uL Normal 0.00-0.50 [facility] Comment on above: Performed By: #### L [id number] #### [facility] ([facility]) [address] [place] [address] Eosinophils/100 WBC (Bld) 1.9 % Normal 0.0-6.0 [facility] Comment on above: Performed By: #### L [id number] #### [facility] ([facility]) [address] [place] [address] Erythrocyte distribution width (RBC) [Ratio] 14.4 % Normal 11.5-15.0 [facility] Comment on above: Performed By: #### L [id number] #### [facility] ([facility]) [address] [place] [address] ERYTHROCYTE MEAN CORPUSCULAR HEMOGLOBIN CONCENTRATION (G/DL) BY AUTOMATED 32.7 g/dL Normal 32.0-35.0 [facility] Comment on above: Performed By: #### L [id number] #### [facility] ([facility]) [address] [place] [address] Hematocrit (Bld) [Volume fraction] 51.3 % Normal 39.0-55.0 [facility] Comment on above: Performed By: #### L [id number] #### [facility] ([facility]) [address] [place] [address] Hemoglobin (Bld) [Mass/Vol] 16.8 g/dL Normal 13.0-17.0 [facility] Comment on above: Performed By: #### L [id number] #### [facility] ([facility]) [address] [place] [address] Immature granulocytes (Bld) [#/Vol] 0.04 10*3/uL Normal 0.00-0.20 [facility] Comment on above: Performed By: #### L [id number] #### [facility] ([facility]) [address] [place] [address] Immature granulocytes/100 WBC (Bld) 0.6 % Normal 0.0-1.0 [facility] Comment on above: Performed By: #### L [id number] #### [facility] ([facility]) [address] [place] [address] Lymphocytes (Bld) [#/Vol] 1.20 10*3/uL Normal 1.20-4.00 [facility] Comment on above: Performed By: #### L [id number] #### [facility] ([facility]) [address] [place] [address] Lymphocytes/100 WBC (Bld) 17.4 % Low 20.0-45.0 [facility] Comment on above: Performed By: #### L [id number] #### [facility] ([facility]) [address] [place] [address] MCH (RBC) [Entitic mass] 30.3 pg Normal 27.0-33.0 [facility] Comment on above: Performed By: #### L [id number] #### [facility] ([facility]) [address] [place] [address] MCV (RBC) [Entitic vol] 92.6 fL Normal 82.0-98.0 [facility] Comment on above: Performed By: #### L [id number] #### [facility] ([facility]) [address] [place] [address] Monocytes (Bld) [#/Vol] 0.71 10*3/uL Normal 0.10-1.00 [facility] Comment on above: Performed By: #### L [id number] #### [facility] ([facility]) [address] [place] [address] Monocytes/100 WBC (Bld) 10.3 % Normal 5.0-12.0 [facility] Comment on above: Performed By: #### L [id number] #### [facility] ([facility]) [address] [place] [address] Neutrophils (Bld) [#/Vol] 4.73 10*3/uL Normal 1.60-7.60 [facility] Comment on above: Performed By: #### L [id number] #### [facility] ([facility]) [address] [place] [address] Neutrophils/100 WBC (Bld) 68.8 % Normal 40.0-72.0 [facility] Comment on above: Performed By: #### L [id number] #### [facility] ([facility]) [address] [place] [address] NRBC (PER 100 WBCS) BY AUTOMATED COUNT 0.0 % Normal 0.0-0.0 [facility] Comment on above: Performed By: #### L [id number] #### [facility] ([facility]) [address] [place] [address] PLATELETS (10*3/UL) IN BLOOD AUTOMATED COUNT 264 10*3/uL Normal 150-400 [facility] Comment on above: Performed By: #### L [id number] #### [facility] ([facility]) [address] [place] [address] RBC (Bld) [#/Vol] 5.54 10*6/uL Normal 4.20-5.70 [facility] Comment on above: Performed By: #### L [id number] #### [facility] ([facility]) [address] [place] [address] WBC (Bld) [#/Vol] 6.88 10*3/uL Normal 4.00-10.60 [facility] Comment on above: Performed By: #### L [id number] #### [facility] ([facility]) [address] [place] [address] COMPREHENSIVE METABOLIC PANE Nitin 06-16-2022 Albumin [Mass/Vol] 4.6 g/dL Normal 3.5-5.7 [facility] Comment on above: Performed By: #### L [id number] #### [facility] ([facility]) [address] [place] [address] ALP [Catalytic activity/Vol] 77 U/L Normal 34-104 [facility] Comment on above: Performed By: #### L [id number] #### [facility] ([facility]) [address] [place] [address] ALT [Catalytic activity/Vol] 32 U/L Normal 7-52 [facility] Comment on above: Performed By: #### L [id number] #### [facility] ([facility]) [address] [place] [address] Anion gap [Moles/Vol] 12 mmol/L Normal 7-20 [facility] Comment on above: Performed By: #### L [id number] #### [facility] ([facility]) [address] [place] [address] AST [Catalytic activity/Vol] 24 U/L Normal 13-39 [facility] Comment on above: Performed By: #### L [id number] #### [facility] ([facility]) [address] [place] [address] Bilirubin [Mass/Vol] 0.9 mg/dL Normal 0.3-1.0 [facility] Comment on above: Performed By: #### L [id number] #### [facility] ([facility]) [address] [place] [address] Calcium [Mass/Vol] 9.7 mg/dL Normal 8.6-10.3 [facility] Comment on above: Performed By: #### L [id number] #### [facility] ([facility]) [address] [place] [address] Chloride [Moles/Vol] 105 mmol/L Normal 98-107 [facility] Comment on above: Performed By: #### L [id number] #### [facility] ([facility]) [address] [place] [address] CO2 [Moles/Vol] 28 mmol/L Normal 21-31 [facility] Comment on above: Performed By: #### L [id number] #### [facility] ([facility]) [address] [place] [address] Creatinine [Mass/Vol] 1.29 mg/dL Normal 0.70-1.30 [facility] Comment on above: Performed By: #### L [id number] #### [facility] ([facility]) [address] [place] [address] GLOMERULAR FILTRATION RATE ML/MIN/1.73 SQ M.PREDICTED 63.1 mL/min/1.73m*2 Normal >60.0 [facility] Comment on above: Result Comment: The [facility]???s estimated glomerular filtration rate (eGFR) will no [...] individuals. Performed By: #### L [id number] #### [facility] ([facility]) [address] [place] [address] Glucose [Mass/Vol] 105 mg/dL High 70-100 [facility] Comment on above: Performed By: #### L [id number] #### [facility] ([facility]) [address] [place] [address] Potassium [Moles/Vol] 4.7 mmol/L Normal 3.5-5.1 [facility] Comment on above: Performed By: #### L [id number] #### [facility] ([facility]) [address] [place] [address] Protein [Mass/Vol] 6.7 g/dL Normal 6.0-8.3 [facility] Comment on above: Performed By: #### L [id number] #### [facility] ([facility]) [address] [place] [address] Sodium [Moles/Vol] 140 mmol/L Normal 136-145 [facility] Comment on above: Performed By: #### L [id number] #### [facility] ([facility]) [address] [place] [address] Urea nitrogen [Mass/Vol] 18 mg/dL Normal 7-25 [facility] Comment on above: Performed By: #### L [id number] #### [facility] ([facility]) [address] [place] [address] UREA NITROGEN/CREATININE (MASS RATIO) IN SER/PLAS 14.0 Normal [facility] Comment on above: Performed By: #### L [id number] #### [facility] ([facility]) [address] [place] [address] Follow-Upon 06-16-2022 Follow-Up [id number] Vishal Duke 1960 M Date Provider Department Center 06/16/2022 [id number] REYNOLDS TXP None Family History Problem Relation Age of Onset Alzheimer's disease Mother Coronary artery disease Father Family Status - Relation Status Age at Mother Father Level of Service:[id number] [place] OFFICE/OUTPT VISIT,PROCEDURE ONLY Reason for Visit and Comments: Kidney Follow-up [] Normal [facility] LIPID PANELon 06-16-2022 CHOL/HDL 3.2 mg/dL Normal [facility] Comment on above: Performed By: #### L [id number] ####[facility] ([facility])[address] [place] [address] Cholesterol [Mass/Vol] 137 mg/dL Normal 120-200 [facility] Comment on above: Performed By: #### L [id number] ####[facility] ([facility])[address] [place] [address] Magnesium [Mass/Vol] 144 mg/dL Normal 40-149 [facility] Comment on above: Result Comment: TRIG LYCERIDE REFERENCE RANGE: 20 YEARS AND OLDER CARDIOVASCULAR RISK LESS THAN 150 mg/dL LOW RISK 150 TO 199 mg/dL BORDERLINE RISK 200 mg/dL AND GREATER HIGH RISK Performed By: #### L [id number] ####[facility] ([facility])[address] [place] [address] Magnesium [Mass/Vol] 65 mg/dL Normal 0-160 [facility] Comment on above: Performed By: #### L [id number] ####[facility] ([facility])[address] [place] [address] Magnesium [Mass/Vol] 43 mg/dL Normal 23-92 [facility] Comment on above: Performed By: #### L [id number] ####[facility] ([facility])[address] [place] [address] NON HDL CHOL. (LDL+VLDL) 94 Normal [facility] Comment on above: Performed By: #### L [id number] ####[facility] ([facility])[address] [place] [address] TOTAL VLDL-C 29 mg/dL Normal 0-40 [facility] Comment on above: Performed By: #### L [id number] ####[facility] ([facility])[address] [place] [address] Labon 06-16-2022 Lab [id number] Vishal Duke 1960 M Date Provider Department Rake 06/16/2022 [id number] DRAW STATION KXT Draw [facility] Family History Problem Relation Age of Onset Alzheimer's disease Mother Coronary artery disease Father Family Status - Relation Status Age at Mother Father Normal [facility] MAGNESIUMon 06-16-2022 Magnesium [Mass/Vol] 1.8 mg/dL Low 1.9-2.7 [facility] Comment on above: Performed By: #### L [id number] #### [facility] ([facility]) [address] [place] [address] PHOSPHORUSon 06-16-2022 Magnesium [Mass/Vol] 3.4 mg/dL Normal 2.5-5.0 [facility] Comment on above: Performed By: #### L [id number] #### [facility] ([facility]) [address] [place] [address] TACROLIMUS LEVELon Tacrolimus (Bld) [Mass/Vol] 7.4 ng/mL Normal 5.0-20.0 [facility] Comment on above: Result Comment: The [employer] Tacrolimus assay is a delayed one-step immunoassay for the quantitative determination of tacrolimus in human whole blood using the chemiluminescent microparticle immunoassay (CMIA) technology with flexible assay protocols, referred to as Chemiflex. Performed By: #### L [id number] #### [facility] ([facility]) [address] [place] [address] URIC ACIDon 06-16-2022 Magnesium [Mass/Vol] 5.5 mg/dL Normal 4.4-7.6 [facility] Comment on above: Performed By: #### L [id number] #### [facility] ([facility]) [address] [place] [address] FK506 (TACROLIMUS) WHOLE BLO ODon 06-04-2022 Tacrolimus (FK506), Blood 5.1 ng/mL Normal 2.0-20.0 [facility] Comment on above: Result Comment: Trou gh (immediately following transplant) 15.0 . Trough (steady state, 2 weeks or more after transplant): 3.0 - 8.0 . Performed by LC-MS/MS technology. Performed By: #### P HOS, URIC, MG, CMP, DBIL, LIPID #### [facility] [address] [place] [address] Dr. Karla Lagos BK VIRUS PCR QUANTon 023 BKV DNA QUANT PCR PLASMA Negative Normal Negative [facility] Comment on above: Result Comment: No B K DNA detected. . The linear range of the assay is 22 - 100,000,000 IU/mL. Performed By: #### P HOS, URIC, MG, CMP, DBIL, LIPID #### [facility] [address] [place] [address] Dr. Karla Lagos Log10 BKV DNA Plasma Normal [facility] Comment on above: Performed By: #### P HOS, URIC, MG, CMP, DBIL, LIPID #### [facility] [address] [place] [address] Dr. Karla Lagos BILIRUBIN CONJUGATED (DIRECT )on 06-01-2022 BILI, CONJUGATED 0.1 mg/dL Normal 0.0-0.2 [facility] Comment on above: Performed By: #### P HOS, URIC, MG, CMP, DBIL, LIPID #### [facility] [address] [place] [address] Dr. Karla Lagos CBC AUTO DIFFon 06-01-2022 BASO # 0.1 103/ul Normal 0.0-0.1 [facility] Comment on above: Performed By: #### P HOS, URIC, MG, CMP, DBIL, LIPID #### [facility] [address] [place] [address] Dr. Karla Lagos Basophils/100 WBC (Bld) 0.9 % Normal 0.2-2.0 [facility] Comment on above: Performed By: #### P HOS, URIC, MG, CMP, DBIL, LIPID #### [facility] [address] [place] [address] Dr. Karla Lagos EO # 0.1 103/ul Normal 0.0-0.7 [facility] Comment on above: Performed By: #### P HOS, URIC, MG, CMP, DBIL, LIPID #### [facility] [address] [place] [address] Dr. Karla Lagos Eosinophils/100 WBC (Bld) 1.6 % Normal 0.9-7.0 [facility] Comment on above: Performed By: #### P HOS, URIC, MG, CMP, DBIL, LIPID #### [facility] [address] [place], [place] [id number] Dr. Karla Lagos Erythrocyte distribution width (RBC) [Ratio] 13.4 % Normal 11.0-15.0 [facility] Comment on above: Performed By: #### P HOS, URIC, MG, CMP, DBIL, LIPID #### [facility] [address] [place] [address] Dr. Karla Lagos Hematocrit (Bld) [Volume fraction] 46.3 % Normal 42.0-54.0 [facility] Comment on above: Performed By: #### P HOS, URIC, MG, CMP, DBIL, LIPID #### [facility] [address] [place] [address] Dr. Karla Lagos Hemoglobin (Bld) [Mass/Vol] 15.4 g/dL Normal 14.0-18.0 [facility] Comment on above: Performed By: #### P HOS, URIC, MG, CMP, DBIL, LIPID #### [facility] [address] [place] [address] Dr. Karla Lagos IG # 0.10 10e3/ul Critically high 0.00-0.03 [facility] Comment on above: Performed By: #### P HOS, URIC, MG, CMP, DBIL, LIPID #### [facility] [address] [place] [address] Dr. Karla Lagos IG % 1.3 % Critically high 0.0-0.5 [facility] Comment on above: Performed By: #### P HOS, URIC, MG, CMP, DBIL, LIPID #### [facility] [address] [place] [address] Dr. Karla Lagos LYMPH # 1.0 103/ul Critically low 1.2-3.8 [facility] Comment on above: Performed By: #### P HOS, URIC, MG, CMP, DBIL, LIPID #### [facility] [address] [place] [address] Dr. Karla Lagos Lymphocytes/100 WBC (Bld) 12.8 % Critically low 20.5-60.0 [facility] Comment on above: Performed By: #### P HOS, URIC, MG, CMP, DBIL, LIPID #### [facility] [address] [place] [address] Dr. Karla Lagos MANUAL DIFF REQ NO Normal [facility] Comment on above: Performed By: #### P HOS, URIC, MG, CMP, DBIL, LIPID #### [facility] [address] [place] [address] Dr. Karla Lagos MCH (RBC) [Entitic mass] 30.4 pg Normal 25.9-34.0 [facility] Comment on above: Performed By: #### P HOS, URIC, MG, CMP, DBIL, LIPID #### [facility] [address] [place] [address] Dr. Karla Lagos MCHC (RBC) [Mass/Vol] 33.3 g/dL Normal 29.9-35.2 [facility] Comment on above: Performed By: #### P HOS, URIC, MG, CMP, DBIL, LIPID #### [facility] [address] [place] [address] Dr. Karla Lagos MCV (RBC) [Entitic vol] 91.3 fL Normal 80.0-94.0 [facility] Comment on above: Performed By: #### P HOS, URIC, MG, CMP, DBIL, LIPID #### [facility] [address] [place] [address] Dr. Karla Lagos MONO # 0.6 103/ul Normal 0.3-0.8 [facility] Comment on above: Performed By: #### P HOS, URIC, MG, CMP, DBIL, LIPID #### [facility] [address] [place] [address] Dr. Karla Lagos Monocytes/100 WBC (Bld) 8.6 % Normal 1.7-12.0 [facility] Comment on above: Performed By: #### P HOS, URIC, MG, CMP, DBIL, LIPID #### [facility] [address] [place] [address] Dr. Karla Lagos NEUT # 5.5 103/ul Normal 1.4-6.5 [facility] Comment on above: Performed By: #### P HOS, URIC, MG, CMP, DBIL, LIPID #### [facility] [address] [place] [address] Dr. Karla Lagos Neutrophils/100 WBC (Bld) 74.8 % Normal 43.0-75.0 [facility] Comment on above: Performed By: #### P HOS, URIC, MG, CMP, DBIL, LIPID #### [facility] [address] [place] [address] Dr. Karla Lagos Platelet mean volume (Bld) [Entitic vol] 9.6 fL Normal 9.5-13.5 [facility] Comment on above: Performed By: #### P HOS, URIC, MG, CMP, DBIL, LIPID #### [facility] [address] [place] [address] Dr. Karla Lagos PLT 312 103/ul Normal 150-450 [facility] Comment on above: Performed By: #### P HOS, URIC, MG, CMP, DBIL, LIPID #### [facility] [address] [place] [address] Dr. Karla Lagos RBC 5.07 106/ul Normal 4.70-6.10 [facility] Comment on above: Performed By: #### P HOS, URIC, MG, CMP, DBIL, LIPID #### [facility] [address] [place] [address] Dr. Karla Lagos WBC 7.4 103/ul Normal 4.0-11.0 [facility] Comment on above: Performed By: #### P HOS, URIC, MG, CMP, DBIL, LIPID #### [facility] [address] [place] [address] Dr. Karla Lagos LIPID PROFILEon 06-01-2022 CHOL-HDL RATIO NORM SEE BELOW Normal [facility] Comment on above: Result Comment: 3.3 - 4.4 LOW RISK 4.4 - 7.1 AVERAGE RISK 7.1 - 11.0 MODERATE RISK >11.0 HIGH RISK Performed By: #### P HOS, URIC, MG, CMP, DBIL, LIPID #### [facility] [address] [place] [address] Dr. Karla Lagos Cholesterol [Mass/Vol] 108 mg/dL Normal <=200 [facility] Comment on above: Performed By: #### P HOS, URIC, MG, CMP, DBIL, LIPID #### [facility] [address] [address] [address] Karla Lagos Cholesterol in HDL [Mass/Vol] 36 mg/dL Critically low 40-60 [facility] Comment on above: Performed By: #### P HOS, URIC, MG, CMP, DBIL, LIPID #### [facility] [address] [address] [address] Karla Lagos Cholesterol in LDL [Mass/Vol] 58.4 mg/dL Normal [facility] Comment on above: Performed By: #### P HOS, URIC, MG, CMP, DBIL, LIPID #### [facility] [address] [place] [address] Dr. Karla Lagos Cholesterol.total/C holesterol in HDL [Mass ratio] 3.0 {ratio} Normal [facility] Comment on above: Performed By: #### P HOS, URIC, MG, CMP, DBIL, LIPID #### [facility] [address] [address] [address] Karla Lagos HDL NORMAL > or = 60 mg/dl - LO W CARDIOVASCULAR RISK <40 mg/dl - HIGH CARDIOVASCULAR RISK Normal [facility] Comment on above: Performed By: #### P HOS, URIC, MG, CMP, DBIL, LIPID #### [facility] [address] [address] [address] Karla Lagos LDL CALC NORMAL SEE BELOW Normal [facility] Comment on above: Result Comment: <100 mg/dl OPTIMAL 100 - 129 mg/dl NEAR OR ABOVE OPTIMAL 130 - 159 mg/dl BORDERLINE HIGH 160 - 189 mg/dl HIGH >190 mg/dl VERY HIGH Performed By: #### P HOS, URIC, MG, CMP, DBIL, LIPID #### [facility] [address] [place] [address] Dr. Karla Lagos Triglyceride [Mass/Vol] 68 mg/dL Normal <=150 [facility] Comment on above: Performed By: #### P HOS, URIC, MG, CMP, DBIL, LIPID #### [facility] [address] [address] [address] Karla Lagos VLDL CALC 13.6 mg/dL Normal [facility] Comment on above: Performed By: #### P HOS, URIC, MG, CMP, DBIL, LIPID #### [facility] [address] [place] [address] Dr. Karla Lagos MAGNESIUMon 06-01-2022 Magnesium [Mass/Vol] 1.7 mg/dL Critically low 1.8-2.4 [facility] Comment on above: Performed By: #### P HOS, URIC, MG, CMP, DBIL, LIPID #### [facility] [address] [place] [address] Dr. Karla Lagos PHOSPHORUSon 06-01-2022 Phosphate [Mass/Vol] 3.7 mg/dL Normal 2.6-4.7 [facility] Comment on above: Performed By: #### P HOS, URIC, MG, CMP, DBIL, LIPID #### [facility] [address] [place] [address] Dr. Karla Lagos PROF 14(COMP METB)on 023 Albumin [Mass/Vol] 3.4 g/dL Normal 3.4-5.0 [facility] Comment on above: Performed By: #### P HOS, URIC, MG, CMP, DBIL, LIPID #### [facility] [address] [place] [address] Dr. Karla Lagos Albumin/Globulin [Mass ratio] 1.0 {ratio} Normal [facility] Comment on above: Performed By: #### P HOS, URIC, MG, CMP, DBIL, LIPID #### [facility] [address] [place] [address] Dr. Karla Lagos ALP [Catalytic activity/Vol] 92 U/L Normal 46-116 [facility] Comment on above: Performed By: #### P HOS, URIC, MG, CMP, DBIL, LIPID #### [facility] [address] [place] [address] Dr. Karla Lagos ALT [Catalytic activity/Vol] 33 U/L Normal 16-63 [facility] Comment on above: Performed By: #### P HOS, URIC, MG, CMP, DBIL, LIPID #### [facility] [address] [address] [address] Karla Lagos Anion gap [Moles/Vol] 12.7 mmol/L Normal [facility] Comment on above: Performed By: #### P HOS, URIC, MG, CMP, DBIL, LIPID #### [facility] [address] [place] [address] Dr. Karla Lagos AST [Catalytic activity/Vol] 21 U/L Normal 15-37 [facility] Comment on above: Performed By: #### P HOS, URIC, MG, CMP, DBIL, LIPID #### [facility] [address] [place] [address] Dr. Karla Lagos Bilirubin [Mass/Vol] 0.4 mg/dL Normal 0.2-1.0 [facility] Comment on above: Performed By: #### P HOS, URIC, MG, CMP, DBIL, LIPID #### [facility] [address] [place] [address] Dr. Karla Lagos Calcium [Mass/Vol] 9.0 mg/dL Normal 8.5-10.1 [facility] Comment on above: Performed By: #### P HOS, URIC, MG, CMP, DBIL, LIPID #### [facility] [address] [place] [address] Dr. Karla Lagos Chloride [Moles/Vol] 104 mmol/L Normal 98-107 [facility] Comment on above: Performed By: #### P HOS, URIC, MG, CMP, DBIL, LIPID #### [facility] [address] [place] [address] Dr. Karla Lagos CO2 [Moles/Vol] 28.7 mmol/L Normal 21.0-32.0 [facility] Comment on above: Performed By: #### P HOS, URIC, MG, CMP, DBIL, LIPID #### [facility] [address] [place] [address] Dr. Karla Lagos Creatinine [Mass/Vol] 1.15 mg/dL Normal 0.70-1.30 [facility] Comment on above: Performed By: #### P HOS, URIC, MG, CMP, DBIL, LIPID #### [facility] [address] [address] [address] Karla Lagos EGFR-AF TAJIK >60 Normal >=60 [facility] Comment on above: Performed By: #### P HOS, URIC, MG, CMP, DBIL, LIPID #### [facility] [address] [address] [address] Karla Lagos EGFR-NON AF TAJIK >60 Normal >=60 [facility] Comment on above: Performed By: #### P HOS, URIC, MG, CMP, DBIL, LIPID #### [facility] [address] [place] [address] Dr. Karla Lagos Globulin (S) [Mass/Vol] 3.3 g/dL Normal [facility] Comment on above: Performed By: #### P HOS, URIC, MG, CMP, DBIL, LIPID #### [facility] [address] [address] [address] Karla Lagos Glucose [Mass/Vol] 112 mg/dL Critically high 74-106 [facility] Comment on above: Performed By: #### P HOS, URIC, MG, CMP, DBIL, LIPID #### [facility] [address] [place] [address] Dr. Karla Lagos Potassium [Moles/Vol] 4.4 mmol/L Normal 3.5-5.1 [facility] Comment on above: Performed By: #### P HOS, URIC, MG, CMP, DBIL, LIPID #### [facility] [address] [place] [address] Dr. Karla Lagos Protein [Mass/Vol] 6.7 g/dL Normal 6.4-8.2 [facility] Comment on above: Performed By: #### P HOS, URIC, MG, CMP, DBIL, LIPID #### [facility] [address] [address] [address] Karla Lagos Sodium [Moles/Vol] 141 mmol/L Normal 136-145 [facility] Comment on above: Performed By: #### P HOS, URIC, MG, CMP, DBIL, LIPID #### [facility] [address] [address] [address] Karla Lagos Urea nitrogen [Mass/Vol] 17.0 mg/dL Normal 7.0-18.0 [facility] Comment on above: Performed By: #### P HOS, URIC, MG, CMP, DBIL, LIPID #### [facility] [address] [address] [address] Karla Lagos Urea nitrogen/Creatinine [Mass ratio] 14.8 mg/mg Normal [facility] Comment on above: Performed By: #### P HOS, URIC, MG, CMP, DBIL, LIPID #### [facility] [address] [place] [address] Dr. Karla Lagos URIC ACID SERUMon 06-01-2022 Urate [Mass/Vol] 5.3 mg/dL Normal 3.5-7.2 [facility] Comment on above: Performed By: #### P HOS, URIC, MG, CMP, DBIL, LIPID #### [facility] [address] [place] [address] Dr. Karla Lagos NM STRESS/REST MULTIon 05-30 NM STRESS/REST MULTI Patient: VISHAL DUKEJessica Exam Date: 05/30/2022 : 1960 Gender:M Ordering : DR FEDERICO CHESTER M.D. Admission #: [id number] Family : Order #: [id number] CLICK HERE TO VIEW EXAM RADIOLOGY REPORT [...] Basal inferoseptal. Basal inferior. Mid-anteroseptal. Mid-inferoseptal. Mid-inferior. [place]. SIZE: Large (5 or more segments). SEVERITY: [...] Villasenor MD on 06/01/2022 at 06:10 Normal [facility] FK506 (TACROLIMUS) WHOLE BLO ODon 05-06-2022 Tacrolimus (FK506), Blood 5.4 ng/mL Normal 2.0-20.0 [facility] Comment on above: Result Comment: Trou gh (immediately following transplant) 15.0 . Trough (steady state, 2 weeks or more after transplant): 3.0 - 8.0 . Performed by LC-MS/MS technology. Performed By: #### P HOS, URIC, MG, CMP, DBIL, LIPID #### [facility] [address] [place] [address] Dr. Karla Lagos BK VIRUS PCR QUANTon 023 BKV DNA QUANT PCR PLASMA Negative Normal Negative [facility] Comment on above: Result Comment: No B K DNA detected. . The linear range of the assay is 22 - 100,000,000 IU/mL. Performed By: #### P HOS, URIC, MG, CMP, DBIL, LIPID #### [facility] [address] [place] [address] Dr. Karla Lagos Log10 BKV DNA Plasma Normal [facility] Comment on above: Performed By: #### P HOS, URIC, MG, CMP, DBIL, LIPID #### [facility] [address] [place] [address] Dr. Karla Lagos BILIRUBIN CONJUGATED (DIRECT )on 05-03-2022 BILI, CONJUGATED 0.2 mg/dL Normal 0.0-0.2 [facility] Comment on above: Performed By: #### P HOS, URIC, MG, CMP, DBIL, LIPID #### [facility] [address] [place] [address] Dr. Karla Lagos CBC AUTO DIFFon 05-03-2022 BASO # 0.1 103/ul Normal 0.0-0.1 [facility] Comment on above: Performed By: #### P HOS, URIC, MG, CMP, DBIL, LIPID #### [facility] [address] [place] [address] Dr. Karla Lagos Basophils/100 WBC (Bld) 0.7 % Normal 0.2-2.0 [facility] Comment on above: Performed By: #### P HOS, URIC, MG, CMP, DBIL, LIPID #### [facility] [address] [place] [address] Dr. Karla Lagos EO # 0.1 103/ul Normal 0.0-0.7 [facility] Comment on above: Performed By: #### P HOS, URIC, MG, CMP, DBIL, LIPID #### [facility] [address] [place] [address] Dr. Karla Lagos Eosinophils/100 WBC (Bld) 1.6 % Normal 0.9-7.0 [facility] Comment on above: Performed By: #### P HOS, URIC, MG, CMP, DBIL, LIPID #### [facility] [address] [place] [address] Dr. Karla Lagos Erythrocyte distribution width (RBC) [Ratio] 13.7 % Normal 11.0-15.0 [facility] Comment on above: Performed By: #### P HOS, URIC, MG, CMP, DBIL, LIPID #### [facility] [address] [place] [address] Dr. Karla Lagos Hematocrit (Bld) [Volume fraction] 49.1 % Normal 42.0-54.0 [facility] Comment on above: Performed By: #### P HOS, URIC, MG, CMP, DBIL, LIPID #### [facility] [address] [place] [address] Dr. Karla Lagos Hemoglobin (Bld) [Mass/Vol] 16.5 g/dL Normal 14.0-18.0 [facility] Comment on above: Performed By: #### P HOS, URIC, MG, CMP, DBIL, LIPID #### [facility] [address] [place] [address] Dr. Karla Lagos IG # 0.05 10e3/ul Critically high 0.00-0.03 [facility] Comment on above: Performed By: #### P HOS, URIC, MG, CMP, DBIL, LIPID #### [facility] [address] [place] [address] Dr. Karla Lagos IG % 0.7 % Critically high 0.0-0.5 [facility] Comment on above: Performed By: #### P HOS, URIC, MG, CMP, DBIL, LIPID #### [facility] [address] [place] [address] Dr. Karla Lagos LYMPH # 1.0 103/ul Critically low 1.2-3.8 [facility] Comment on above: Performed By: #### P HOS, URIC, MG, CMP, DBIL, LIPID #### [facility] [address] [place] [address] Dr. Karla Lagos Lymphocytes/100 WBC (Bld) 13.7 % Critically low 20.5-60.0 [facility] Comment on above: Performed By: #### P HOS, URIC, MG, CMP, DBIL, LIPID #### [facility] [address] [place] [address] Dr. Karla Lagos MANUAL DIFF REQ NO Normal [facility] Comment on above: Performed By: #### P HOS, URIC, MG, CMP, DBIL, LIPID #### [facility] [address] [place] [address] Dr. Karla Lagos MCH (RBC) [Entitic mass] 30.9 pg Normal 25.9-34.0 [facility] Comment on above: Performed By: #### P HOS, URIC, MG, CMP, DBIL, LIPID #### [facility] [address] [place] [address] Dr. Karla Lagos MCHC (RBC) [Mass/Vol] 33.6 g/dL Normal 29.9-35.2 [facility] Comment on above: Performed By: #### P HOS, URIC, MG, CMP, DBIL, LIPID #### [facility] [address] [place] [address] Dr. Karla Lagos MCV (RBC) [Entitic vol] 91.9 fL Normal 80.0-94.0 [facility] Comment on above: Performed By: #### P HOS, URIC, MG, CMP, DBIL, LIPID #### [facility] [address] [place] [address] Dr. Karla Lagos MONO # 0.7 103/ul Normal 0.3-0.8 [facility] Comment on above: Performed By: #### P HOS, URIC, MG, CMP, DBIL, LIPID #### [facility] [address] [place] [address] Dr. Karla Lagos Monocytes/100 WBC (Bld) 9.7 % Normal 1.7-12.0 [facility] Comment on above: Performed By: #### P HOS, URIC, MG, CMP, DBIL, LIPID #### [facility] [address] [place] [address] Dr. Karla Lagos NEUT # 5.2 103/ul Normal 1.4-6.5 [facility] Comment on above: Performed By: #### P HOS, URIC, MG, CMP, DBIL, LIPID #### [facility] [address] [place] [address] Dr. Karla Lagos Neutrophils/100 WBC (Bld) 73.6 % Normal 43.0-75.0 [facility] Comment on above: Performed By: #### P HOS, URIC, MG, CMP, DBIL, LIPID #### [facility] [address] [address] [address] Karla Lagos Platelet mean volume (Bld) [Entitic vol] 10.2 fL Normal 9.5-13.5 [facility] Comment on above: Performed By: #### P HOS, URIC, MG, CMP, DBIL, LIPID #### [facility] [address] [address] [address] Karla Lagos PLT 218 103/ul Normal 150-450 [facility] Comment on above: Performed By: #### P HOS, URIC, MG, CMP, DBIL, LIPID #### [facility] [address] [address] [address] Karla Lagos RBC 5.34 106/ul Normal 4.70-6.10 [facility] Comment on above: Performed By: #### P HOS, URIC, MG, CMP, DBIL, LIPID #### [facility] [address] [place] [address] Dr. Karla Lagos WBC 7.1 103/ul Normal 4.0-11.0 [facility] Comment on above: Performed By: #### P HOS, URIC, MG, CMP, DBIL, LIPID #### [facility] [address] [place] [address] Dr. Karla Lagos LIPID PROFILEon 05-03-2022 CHOL-HDL RATIO NORM SEE BELOW Normal [facility] Comment on above: Result Comment: 3.3 - 4.4 LOW RISK 4.4 - 7.1 AVERAGE RISK 7.1 - 11.0 MODERATE RISK >11.0 HIGH RISK Performed By: #### M G, CMP, URIC, DBIL, LIPID, PHOS #### [facility] [address] [place] [address] Dr. Karla Lagos Cholesterol [Mass/Vol] 121 mg/dL Normal <=200 [facility] Comment on above: Performed By: #### M G, CMP, URIC, DBIL, LIPID, PHOS #### [facility] [address] [address] [address] Karla Lagos Cholesterol in HDL [Mass/Vol] 44 mg/dL Normal 40-60 [facility] Comment on above: Performed By: #### M G, CMP, URIC, DBIL, LIPID, PHOS #### [facility] [address] [address] [address] Karla Lagos Cholesterol in LDL [Mass/Vol] 40.0 mg/dL Normal [facility] Comment on above: Performed By: #### M G, CMP, URIC, DBIL, LIPID, PHOS #### [facility] [address] [address] [address] Karla Lagos Cholesterol.total/C holesterol in HDL [Mass ratio] 2.8 {ratio} Normal [facility] Comment on above: Performed By: #### M G, CMP, URIC, DBIL, LIPID, PHOS #### [facility] [address] [address] [address] Karla Lagos HDL NORMAL > or = 60 mg/dl - LO W CARDIOVASCULAR RISK <40 mg/dl - HIGH CARDIOVASCULAR RISK Normal [facility] Comment on above: Performed By: #### M G, CMP, URIC, DBIL, LIPID, PHOS #### [facility] [address] [place] [address] Dr. Karla Lagso LDL CALC NORMAL SEE BELOW Normal [facility] Comment on above: Result Comment: <100 mg/dl OPTIMAL 100 - 129 mg/dl NEAR OR ABOVE OPTIMAL 130 - 159 mg/dl BORDERLINE HIGH 160 - 189 mg/dl HIGH >190 mg/dl VERY HIGH Performed By: #### M G, CMP, URIC, DBIL, LIPID, PHOS #### [facility] [address] [address] [address] Karla Lagos Triglyceride [Mass/Vol] 185 mg/dL Critically high <=150 [facility] Comment on above: Performed By: #### M G, CMP, URIC, DBIL, LIPID, PHOS #### [facility] [address] [address] [address] Karla Lagos VLDL CALC 37.0 mg/dL Normal [facility] Comment on above: Performed By: #### M G, CMP, URIC, DBIL, LIPID, PHOS #### [facility] [address] [address] [address] Karla Lagos MAGNESIUMon 05-03-2022 Magnesium [Mass/Vol] 1.6 mg/dL Critically low 1.8-2.4 [facility] Comment on above: Performed By: #### P HOS, URIC, MG, CMP, DBIL, LIPID #### [facility] [address] [address] [address] Karla Lagos PHOSPHORUSon 05-03-2022 Phosphate [Mass/Vol] 3.6 mg/dL Normal 2.6-4.7 [facility] Comment on above: Performed By: #### P HOS, URIC, MG, CMP, DBIL, LIPID #### [facility] [address] [address] [address] Karla Lagos PROF 14(COMP METB)on 023 Albumin [Mass/Vol] 3.9 g/dL Normal 3.4-5.0 [facility] Comment on above: Performed By: #### M G, CMP, URIC, DBIL, LIPID, PHOS #### [facility] [address] [place] [address] Dr. Karla Lagos Albumin/Globulin [Mass ratio] 1.3 {ratio} Normal [facility] Comment on above: Performed By: #### M G, CMP, URIC, DBIL, LIPID, PHOS #### [facility] [address] [place] [address] Dr. Karla Lagos ALP [Catalytic activity/Vol] 80 U/L Normal 46-116 [facility] Comment on above: Performed By: #### M G, CMP, URIC, DBIL, LIPID, PHOS #### [facility] [address] [address] [address] Karla Lagos ALT [Catalytic activity/Vol] 41 U/L Normal 16-63 [facility] Comment on above: Performed By: #### M G, CMP, URIC, DBIL, LIPID, PHOS #### [facility] [address] [address] [address] Karla Lagos Anion gap [Moles/Vol] 11.9 mmol/L Normal [facility] Comment on above: Performed By: #### M G, CMP, URIC, DBIL, LIPID, PHOS #### [facility] [address] [address] [address] Karla Lagos AST [Catalytic activity/Vol] 24 U/L Normal 15-37 [facility] Comment on above: Performed By: #### M G, CMP, URIC, DBIL, LIPID, PHOS #### [facility] [address] [address] [address] Karla Lagos Bilirubin [Mass/Vol] 0.7 mg/dL Normal 0.2-1.0 [facility] Comment on above: Performed By: #### M G, CMP, URIC, DBIL, LIPID, PHOS #### [facility] [address] [place] [address] Dr. Karla Lagos Calcium [Mass/Vol] 9.2 mg/dL Normal 8.5-10.1 [facility] Comment on above: Performed By: #### M G, CMP, URIC, DBIL, LIPID, PHOS #### [facility] [address] [place] [address] Dr. Karla Lagos Chloride [Moles/Vol] 103 mmol/L Normal 98-107 [facility] Comment on above: Performed By: #### M G, CMP, URIC, DBIL, LIPID, PHOS #### [facility] [address] [place] [address] Dr. Karla Lagos CO2 [Moles/Vol] 28.1 mmol/L Normal 21.0-32.0 [facility] Comment on above: Performed By: #### M G, CMP, URIC, DBIL, LIPID, PHOS #### [facility] [address] [place] [address] Dr. Karla Lagos Creatinine [Mass/Vol] 1.19 mg/dL Normal 0.70-1.30 [facility] Comment on above: Performed By: #### M G, CMP, URIC, DBIL, LIPID, PHOS #### [facility] [address] [place] [address] Dr. Karla Lagos EGFR-AF TAJIK >60 Normal >=60 [facility] Comment on above: Performed By: #### M G, CMP, URIC, DBIL, LIPID, PHOS #### [facility] [address] [address] [address] Karla Lagos EGFR-NON AF TAJIK >60 Normal >=60 [facility] Comment on above: Performed By: #### M G, CMP, URIC, DBIL, LIPID, PHOS #### [facility] [address] [address] [address] Karla Lagos Globulin (S) [Mass/Vol] 2.9 g/dL Normal [facility] Comment on above: Performed By: #### M G, CMP, URIC, DBIL, LIPID, PHOS #### [facility] [address] [place] [address] Dr. Karla Lagos Glucose [Mass/Vol] 119 mg/dL Critically high 74-106 [facility] Comment on above: Performed By: #### M G, CMP, URIC, DBIL, LIPID, PHOS #### [facility] [address] [address] [address] Karla Lagos Potassium [Moles/Vol] 4.0 mmol/L Normal 3.5-5.1 [facility] Comment on above: Performed By: #### M G, CMP, URIC, DBIL, LIPID, PHOS #### [facility] [address] [place] [address] Dr. Karla Lagos Protein [Mass/Vol] 6.8 g/dL Normal 6.4-8.2 [facility] Comment on above: Performed By: #### M G, CMP, URIC, DBIL, LIPID, PHOS #### [facility] [address] [address] [address] Karla Lagos Sodium [Moles/Vol] 139 mmol/L Normal 136-145 [facility] Comment on above: Performed By: #### M G, CMP, URIC, DBIL, LIPID, PHOS #### [facility] [address] [place] [address] Dr. Karla Lagos Urea nitrogen [Mass/Vol] 20.0 mg/dL Critically high 7.0-18.0 [facility] Comment on above: Performed By: #### M G, CMP, URIC, DBIL, LIPID, PHOS #### [facility] [address] [place] [address] Dr. Karla Lagos Urea nitrogen/Creatinine [Mass ratio] 16.8 mg/mg Normal [facility] Comment on above: Performed By: #### M G, CMP, URIC, DBIL, LIPID, PHOS #### [facility] [address] [place] [address] Dr. Karla Lagos URIC ACID SERUMon 05-03-2022 Urate [Mass/Vol] 5.5 mg/dL Normal 3.5-7.2 [facility] Comment on above: Performed By: #### M G, CMP, URIC, DBIL, LIPID, PHOS #### [facility] [address] [place] [address] Dr. Karla Lagos FK506 (TACROLIMUS) WHOLE BLO ODon 04-17-2022 Tacrolimus (FK506), Blood 6.1 ng/mL Normal 2.0-20.0 [facility] Comment on above: Result Comment: Trou gh (immediately following transplant) 15.0 . Trough (steady state, 2 weeks or more after transplant): 3.0 - 8.0 . Performed by LC-MS/MS technology. Performed By: #### P HOS, URIC, MG, CMP, DBIL, LIPID #### [facility] [address] [place] [address] Dr. Karla Lagos FK506 (TACROLIMUS) WHOLE BLO ODon 03-28-2022 Tacrolimus (FK506), Blood 8.8 ng/mL Normal 2.0-20.0 [facility] Comment on above: Result Comment: Trou gh (immediately following transplant) 15.0 . Trough (steady state, 2 weeks or more after transplant): 3.0 - 8.0 . Performed by LC-MS/MS technology. Performed By: #### P HOS, URIC, MG, CMP, DBIL, LIPID #### [facility] [facility] [address] [place] [address] Dr. Karla Lagos BILIRUBIN CONJUGATED (DIRECT )on 03-25-2022 BILI, CONJUGATED 0.2 mg/dL Normal 0.0-0.2 [facility] Comment on above: Performed By: #### P HOS, URIC, MG, CMP, DBIL, LIPID #### [facility] [address] [place] [address] Dr. Karla Lagos CBC AUTO DIFFon 03-25-2022 BASO # 0.1 103/ul Normal 0.0-0.1 [facility] Comment on above: Performed By: #### P HOS, URIC, MG, CMP, DBIL, LIPID #### [facility] [address] [place] [address] Dr. Karla Lagos Basophils/100 WBC (Bld) 0.7 % Normal 0.2-2.0 [facility] Comment on above: Performed By: #### P HOS, URIC, MG, CMP, DBIL, LIPID #### [facility] [address] [place] [address] Dr. Karla Lagos EO # 0.1 103/ul Normal 0.0-0.7 [facility] Comment on above: Performed By: #### P HOS, URIC, MG, CMP, DBIL, LIPID #### [facility] [address] [place] [address] Dr. Karla Lagos Eosinophils/100 WBC (Bld) 1.4 % Normal 0.9-7.0 [facility] Comment on above: Performed By: #### P HOS, URIC, MG, CMP, DBIL, LIPID #### [facility] [address] [place] [address] Dr. Karla Lagos Erythrocyte distribution width (RBC) [Ratio] 13.6 % Normal 11.0-15.0 [facility] Comment on above: Performed By: #### P HOS, URIC, MG, CMP, DBIL, LIPID #### [facility] [address] [place] [address] Dr. Karla Lagos Hematocrit (Bld) [Volume fraction] 51.5 % Normal 42.0-54.0 [facility] Comment on above: Performed By: #### P HOS, URIC, MG, CMP, DBIL, LIPID #### [facility] [address] [place] [address] Dr. Karla Lagos Hemoglobin (Bld) [Mass/Vol] 16.8 g/dL Normal 14.0-18.0 [facility] Comment on above: Performed By: #### P HOS, URIC, MG, CMP, DBIL, LIPID #### [facility] [address] [address] [address] Karla Lagos IG # 0.06 10e3/ul Critically high 0.00-0.03 [facility] Comment on above: Performed By: #### P HOS, URIC, MG, CMP, DBIL, LIPID #### [facility] [address] [place] [address] Dr. Karla Lagos IG % 0.8 % Critically high 0.0-0.5 [facility] Comment on above: Performed By: #### P HOS, URIC, MG, CMP, DBIL, LIPID #### [facility] [address] [place] [address] Dr. Karla Lagos LYMPH # 1.1 103/ul Critically low 1.2-3.8 [facility] Comment on above: Performed By: #### P HOS, URIC, MG, CMP, DBIL, LIPID #### [facility] [address] [place] [address] Dr. Karla Lagos Lymphocytes/100 WBC (Bld) 14.8 % Critically low 20.5-60.0 [facility] Comment on above: Performed By: #### P HOS, URIC, MG, CMP, DBIL, LIPID #### [facility] [address] [place] [address] Dr. Karla Lagos MANUAL DIFF REQ NO Normal [facility] Comment on above: Performed By: #### P HOS, URIC, MG, CMP, DBIL, LIPID #### [facility] [address] [place] [address] Dr. Karla Lagos MCH (RBC) [Entitic mass] 30.2 pg Normal 25.9-34.0 [facility] Comment on above: Performed By: #### P HOS, URIC, MG, CMP, DBIL, LIPID #### [facility] [address] [place] [address] Dr. Karla Lagos MCHC (RBC) [Mass/Vol] 32.6 g/dL Normal 29.9-35.2 [facility] Comment on above: Performed By: #### P HOS, URIC, MG, CMP, DBIL, LIPID #### [facility] [address] [place] [address] Dr. Karla Lagos MCV (RBC) [Entitic vol] 92.6 fL Normal 80.0-94.0 [facility] Comment on above: Performed By: #### P HOS, URIC, MG, CMP, DBIL, LIPID #### [facility] [address] [place] [address] Dr. Karla Lagos MONO # 0.7 103/ul Normal 0.3-0.8 [facility] Comment on above: Performed By: #### P HOS, URIC, MG, CMP, DBIL, LIPID #### [facility] [address] [place] [address] Dr. Karla Lagos Monocytes/100 WBC (Bld) 10.0 % Normal 1.7-12.0 [facility] Comment on above: Performed By: #### P HOS, URIC, MG, CMP, DBIL, LIPID #### [facility] [address] [place] [address] Dr. Karla Lagos NEUT # 5.2 103/ul Normal 1.4-6.5 [facility] Comment on above: Performed By: #### P HOS, URIC, MG, CMP, DBIL, LIPID #### [facility] [address] [place] [address] Dr. Karla Lagos Neutrophils/100 WBC (Bld) 72.3 % Normal 43.0-75.0 [facility] Comment on above: Performed By: #### P HOS, URIC, MG, CMP, DBIL, LIPID #### [facility] [address] [place] [address] Dr. Karla Lagos Platelet mean volume (Bld) [Entitic vol] 10.4 fL Normal 9.5-13.5 [facility] Comment on above: Performed By: #### P HOS, URIC, MG, CMP, DBIL, LIPID #### [facility] [address] [address] [address] Karla Lagos PLT 245 103/ul Normal 150-450 [facility] Comment on above: Performed By: #### P HOS, URIC, MG, CMP, DBIL, LIPID #### [facility] [address] [address] [address] Karla Lagos RBC 5.56 106/ul Normal 4.70-6.10 [facility] Comment on above: Performed By: #### P HOS, URIC, MG, CMP, DBIL, LIPID #### [facility] [address] [address] [address] Karla Lagos WBC 7.2 103/ul Normal 4.0-11.0 [facility] Comment on above: Performed By: #### P HOS, URIC, MG, CMP, DBIL, LIPID #### [facility] [address] [place] [address] Dr. Karla Lagos LIPID PROFILEon 03-25-2022 CHOL-HDL RATIO NORM SEE BELOW Normal [facility] Comment on above: Result Comment: 3.3 - 4.4 LOW RISK 4.4 - 7.1 AVERAGE RISK 7.1 - 11.0 MODERATE RISK >11.0 HIGH RISK Performed By: #### P HOS, URIC, MG, CMP, DBIL, LIPID #### [facility] [address] [place] [address] Dr. Karla Lagos Cholesterol [Mass/Vol] 124 mg/dL Normal <=200 [facility] Comment on above: Performed By: #### P HOS, URIC, MG, CMP, DBIL, LIPID #### [facility] [address] [address] [address] Karla Lagos Cholesterol in HDL [Mass/Vol] 47 mg/dL Normal 40-60 [facility] Comment on above: Performed By: #### P HOS, URIC, MG, CMP, DBIL, LIPID #### [facility] [address] [place] [address] Dr. Karla Lagos Cholesterol in LDL [Mass/Vol] 47.4 mg/dL Normal [facility] Comment on above: Performed By: #### P HOS, URIC, MG, CMP, DBIL, LIPID #### [facility] [address] [address] [address] Karla Lagos Cholesterol.total/C holesterol in HDL [Mass ratio] 2.6 {ratio} Normal [facility] Comment on above: Performed By: #### P HOS, URIC, MG, CMP, DBIL, LIPID #### [facility] [address] [address] [address] Karla Lagos HDL NORMAL > or = 60 mg/dl - LO W CARDIOVASCULAR RISK <40 mg/dl - HIGH CARDIOVASCULAR RISK Normal [facility] Comment on above: Performed By: #### P HOS, URIC, MG, CMP, DBIL, LIPID #### [facility] [address] [place] [address] Dr. Karla Lagos LDL CALC NORMAL SEE BELOW Normal [facility] Comment on above: Result Comment: <100 mg/dl OPTIMAL 100 - 129 mg/dl NEAR OR ABOVE OPTIMAL 130 - 159 mg/dl BORDERLINE HIGH 160 - 189 mg/dl HIGH >190 mg/dl VERY HIGH Performed By: #### P HOS, URIC, MG, CMP, DBIL, LIPID #### [facility] [address] [place] [address] Dr. Karla Lagos Triglyceride [Mass/Vol] 148 mg/dL Normal <=150 [facility] Comment on above: Performed By: #### P HOS, URIC, MG, CMP, DBIL, LIPID #### [facility] [address] [place] [address] Dr. Karla Lagos VLDL CALC 29.6 mg/dL Normal [facility] Comment on above: Performed By: #### P HOS, URIC, MG, CMP, DBIL, LIPID #### [facility] [address] [place] [address] Dr. Karla Lagos MAGNESIUMon 03-25-2022 Magnesium [Mass/Vol] 1.5 mg/dL Critically low 1.8-2.4 [facility] Comment on above: Performed By: #### P HOS, URIC, MG, CMP, DBIL, LIPID #### [facility] [address] [place] [address] Dr. Karla Lagos PHOSPHORUSon 03-25-2022 Phosphate [Mass/Vol] 3.8 mg/dL Normal 2.6-4.7 [facility] Comment on above: Performed By: #### P HOS, URIC, MG, CMP, DBIL, LIPID #### [facility] [address] [place] [address] Dr. Karla Lagos PROF 14(COMP METB)on 022 Albumin [Mass/Vol] 4.1 g/dL Normal 3.4-5.0 [facility] Comment on above: Performed By: #### P HOS, URIC, MG, CMP, DBIL, LIPID #### [facility] [address] [place] [address] Dr. Karla Lagos Albumin/Globulin [Mass ratio] 1.3 {ratio} Normal [facility] Comment on above: Performed By: #### P HOS, URIC, MG, CMP, DBIL, LIPID #### [facility] [address] [place] [address] Dr. Karla Lagos ALP [Catalytic activity/Vol] 76 U/L Normal 46-116 [facility] Comment on above: Performed By: #### P HOS, URIC, MG, CMP, DBIL, LIPID #### [facility] [address] [place] [address] Dr. Karla Lagos ALT [Catalytic activity/Vol] 36 U/L Normal 16-63 [facility] Comment on above: Performed By: #### P HOS, URIC, MG, CMP, DBIL, LIPID #### [facility] [address] [place] [address] Dr. Karla Lagos Anion gap [Moles/Vol] 12.4 mmol/L Normal [facility] Comment on above: Performed By: #### P HOS, URIC, MG, CMP, DBIL, LIPID #### [facility] [address] [place] [address] Dr. Karla Lagos AST [Catalytic activity/Vol] 21 U/L Normal 15-37 [facility] Comment on above: Performed By: #### P HOS, URIC, MG, CMP, DBIL, LIPID #### [facility] [address] [address] [address] Karla Lagos Bilirubin [Mass/Vol] 0.6 mg/dL Normal 0.2-1.0 [facility] Comment on above: Performed By: #### P HOS, URIC, MG, CMP, DBIL, LIPID #### [facility] [address] [place] [address] Dr. Karla Lagos Calcium [Mass/Vol] 9.4 mg/dL Normal 8.5-10.1 [facility] Comment on above: Performed By: #### P HOS, URIC, MG, CMP, DBIL, LIPID #### [facility] [address] [place] [address] Dr. Karla Lagos Chloride [Moles/Vol] 103 mmol/L Normal 98-107 [facility] Comment on above: Performed By: #### P HOS, URIC, MG, CMP, DBIL, LIPID #### [facility] [address] [place] [address] Dr. Karla Lagos CO2 [Moles/Vol] 30.6 mmol/L Normal 21.0-32.0 [facility] Comment on above: Performed By: #### P HOS, URIC, MG, CMP, DBIL, LIPID #### [facility] [address] [place] [address] Dr. Karla Lagos Creatinine [Mass/Vol] 1.34 mg/dL Critically high 0.70-1.30 [facility] Comment on above: Performed By: #### P HOS, URIC, MG, CMP, DBIL, LIPID #### [facility] [address] [place] [address] Dr. Karla Lagos EGFR-AF TAJIK >60 Normal >=60 [facility] Comment on above: Performed By: #### P HOS, URIC, MG, CMP, DBIL, LIPID #### [facility] [address] [place] [address] Dr. Karla Lagos EGFR-NON AF TAJIK 54 mL/min/1.73m2 Critically low >=60 [facility] Comment on above: Performed By: #### P HOS, URIC, MG, CMP, DBIL, LIPID #### [facility] [address] [address] [address] Karla Lagos Globulin (S) [Mass/Vol] 3.2 g/dL Normal [facility] Comment on above: Performed By: #### P HOS, URIC, MG, CMP, DBIL, LIPID #### [facility] [address] [place] [address] Dr. Karla Lagos Glucose [Mass/Vol] 125 mg/dL Critically high 74-106 [facility] Comment on above: Performed By: #### P HOS, URIC, MG, CMP, DBIL, LIPID #### [facility] [address] [address] [address] Karla Lagos Potassium [Moles/Vol] 5.0 mmol/L Normal 3.5-5.1 [facility] Comment on above: Performed By: #### P HOS, URIC, MG, CMP, DBIL, LIPID #### [facility] [address] [place] [address] Dr. Karla Lagos Protein [Mass/Vol] 7.3 g/dL Normal 6.4-8.2 [facility] Comment on above: Performed By: #### P HOS, URIC, MG, CMP, DBIL, LIPID #### [facility] [address] [place] [address] Dr. Karla Lagos Sodium [Moles/Vol] 141 mmol/L Normal 136-145 [facility] Comment on above: Performed By: #### P HOS, URIC, MG, CMP, DBIL, LIPID #### [facility] [address] [place] [address] Dr. Karla Lagos Urea nitrogen [Mass/Vol] 24.0 mg/dL Critically high 7.0-18.0 [facility] Comment on above: Performed By: #### P HOS, URIC, MG, CMP, DBIL, LIPID #### [facility] [address] [place] [address] Dr. Karla Lagos Urea nitrogen/Creatinine [Mass ratio] 17.9 mg/mg Normal [facility] Comment on above: Performed By: #### P HOS, URIC, MG, CMP, DBIL, LIPID #### [facility] [address] [place] [address] Dr. Karla Lagos URIC ACID SERUMon 03-25-2022 Urate [Mass/Vol] 5.0 mg/dL Normal 3.5-7.2 [facility] Comment on above: Performed By: #### P HOS, URIC, MG, CMP, DBIL, LIPID #### [facility] [address] [place] [address] Dr. Karla Lagos FK506 (TACROLIMUS) WHOLE BLO ODon 02-27-2022 Tacrolimus (FK506), Blood 8.0 ng/mL Normal 2.0-20.0 [facility] Comment on above: Result Comment: Trou gh (immediately following transplant) 15.0 . Trough (steady state, 2 weeks or more after transplant): 3.0 - 8.0 . Performed by LC-MS/MS technology. Performed By: #### P HOS, URIC, MG, CMP, DBIL, LIPID #### [facility] [address] [place] [address] Dr. Karla Lagos BK VIRUS PCR QUANTon 022 BKV DNA QUANT PCR PLASMA Negative Normal Negative [facility] Comment on above: Result Comment: No B K DNA detected. . The linear range of the assay is 22 - 100,000,000 IU/mL. Performed By: #### P HOS, URIC, MG, CMP, DBIL, LIPID #### [facility] [address] [place] [address] Dr. Karla Lagos Log10 BKV DNA Plasma Normal [facility] Comment on above: Performed By: #### P HOS, URIC, MG, CMP, DBIL, LIPID #### [facility] [address] [place] [address] Dr. Karla Lagos BILIRUBIN CONJUGATED (DIRECT )on 02-24-2022 BILI, CONJUGATED 0.2 mg/dL Normal 0.0-0.2 [facility] Comment on above: Performed By: #### P HOS, URIC, MG, CMP, DBIL, LIPID #### [facility] [address] [place] [address] Dr. Karla Lagos CBC AUTO DIFFon 02-24-2022 BASO # 0.1 103/ul Normal 0.0-0.1 [facility] Comment on above: Performed By: #### P HOS, URIC, MG, CMP, DBIL, LIPID #### [facility] [address] [place] [address] Dr. Karla Lagos Basophils/100 WBC (Bld) 0.8 % Normal 0.2-2.0 [facility] Comment on above: Performed By: #### P HOS, URIC, MG, CMP, DBIL, LIPID #### [facility] [address] [place] [address] Dr. Karla Lagos EO # 0.1 103/ul Normal 0.0-0.7 [facility] Comment on above: Performed By: #### P HOS, URIC, MG, CMP, DBIL, LIPID #### [facility] [address] [place] [address] Dr. Karla Lagos Eosinophils/100 WBC (Bld) 1.7 % Normal 0.9-7.0 [facility] Comment on above: Performed By: #### P HOS, URIC, MG, CMP, DBIL, LIPID #### [facility] [address] [place] [address] Dr. Karla Lagos Erythrocyte distribution width (RBC) [Ratio] 14.1 % Normal 11.0-15.0 [facility] Comment on above: Performed By: #### P HOS, URIC, MG, CMP, DBIL, LIPID #### [facility] [address] [place] [address] Dr. Karla Lagos Hematocrit (Bld) [Volume fraction] 48.1 % Normal 42.0-54.0 [facility] Comment on above: Performed By: #### P HOS, URIC, MG, CMP, DBIL, LIPID #### [facility] [address] [place] [address] Dr. Karla Lagos Hemoglobin (Bld) [Mass/Vol] 16.0 g/dL Normal 14.0-18.0 [facility] Comment on above: Performed By: #### P HOS, URIC, MG, CMP, DBIL, LIPID #### [facility] [address] [place] [address] Dr. Karla Lagos IG # 0.03 10e3/ul Normal 0.00-0.03 [facility] Comment on above: Performed By: #### P HOS, URIC, MG, CMP, DBIL, LIPID #### [facility] [address] [place] [address] Dr. Karla Lagos IG % 0.5 % Normal 0.0-0.5 [facility] Comment on above: Performed By: #### P HOS, URIC, MG, CMP, DBIL, LIPID #### [facility] [address] [place] [address] Dr. Karla Lagos LYMPH # 1.0 103/ul Critically low 1.2-3.8 [facility] Comment on above: Performed By: #### P HOS, URIC, MG, CMP, DBIL, LIPID #### [facility] [address] [place] [address] Dr. Karla Lagos Lymphocytes/100 WBC (Bld) 16.9 % Critically low 20.5-60.0 [facility] Comment on above: Performed By: #### P HOS, URIC, MG, CMP, DBIL, LIPID #### [facility] [address] [place] [address] Dr. Karla Lagos MANUAL DIFF REQ NO Normal [facility] Comment on above: Performed By: #### P HOS, URIC, MG, CMP, DBIL, LIPID #### [facility] [address] [place] [address] Dr. Karla Lagos MCH (RBC) [Entitic mass] 31.1 pg Normal 25.9-34.0 [facility] Comment on above: Performed By: #### P HOS, URIC, MG, CMP, DBIL, LIPID #### [facility] [address] [place] [address] Dr. Karla Lagos MCHC (RBC) [Mass/Vol] 33.3 g/dL Normal 29.9-35.2 [facility] Comment on above: Performed By: #### P HOS, URIC, MG, CMP, DBIL, LIPID #### [facility] [address] [place] [address] Dr. Karla Lagos MCV (RBC) [Entitic vol] 93.6 fL Normal 80.0-94.0 [facility] Comment on above: Performed By: #### P HOS, URIC, MG, CMP, DBIL, LIPID #### [facility] [address] [place] [address] Dr. Karla Lagos MONO # 0.6 103/ul Normal 0.3-0.8 [facility] Comment on above: Performed By: #### P HOS, URIC, MG, CMP, DBIL, LIPID #### [facility] [address] [place] [address] Dr. Karla Lagos Monocytes/100 WBC (Bld) 10.1 % Normal 1.7-12.0 [facility] Comment on above: Performed By: #### P HOS, URIC, MG, CMP, DBIL, LIPID #### [facility] [address] [place] [address] Dr. Karla Lagos NEUT # 4.2 103/ul Normal 1.4-6.5 [facility] Comment on above: Performed By: #### P HOS, URIC, MG, CMP, DBIL, LIPID #### [facility] [address] [place] [address] Dr. Karla Lagos Neutrophils/100 WBC (Bld) 70.0 % Normal 43.0-75.0 [facility] Comment on above: Performed By: #### P HOS, URIC, MG, CMP, DBIL, LIPID #### [facility] [address] [place] [address] Dr. Karla Lagos Platelet mean volume (Bld) [Entitic vol] 10.2 fL Normal 9.5-13.5 [facility] Comment on above: Performed By: #### P HOS, URIC, MG, CMP, DBIL, LIPID #### [facility] [address] [place] [address] Dr. Karla Lagos PLT 226 103/ul Normal 150-450 [facility] Comment on above: Performed By: #### P HOS, URIC, MG, CMP, DBIL, LIPID #### [facility] [address] [address] [address] Karla Lagos RBC 5.14 106/ul Normal 4.70-6.10 [facility] Comment on above: Performed By: #### P HOS, URIC, MG, CMP, DBIL, LIPID #### [facility] [address] [address] [address] Karla Lagos WBC 6.0 103/ul Normal 4.0-11.0 [facility] Comment on above: Performed By: #### P HOS, URIC, MG, CMP, DBIL, LIPID #### [facility] [address] [address] [address] Karla Lagos LIPID PROFILEon 02-24-2022 CHOL-HDL RATIO NORM SEE BELOW Normal [facility] Comment on above: Result Comment: 3.3 - 4.4 LOW RISK 4.4 - 7.1 AVERAGE RISK 7.1 - 11.0 MODERATE RISK >11.0 HIGH RISK Performed By: #### P HOS, URIC, MG, CMP, DBIL, LIPID #### [facility] [address] [address] [address] Karla Lagos Cholesterol [Mass/Vol] 132 mg/dL Normal <=200 [facility] Comment on above: Performed By: #### P HOS, URIC, MG, CMP, DBIL, LIPID #### [facility] [address] [address] [address] Karla Lagos Cholesterol in HDL [Mass/Vol] 50 mg/dL Normal 40-60 [facility] Comment on above: Performed By: #### P HOS, URIC, MG, CMP, DBIL, LIPID #### [facility] [address] [address] [address] Karla Lagos Cholesterol in LDL [Mass/Vol] 54.6 mg/dL Normal [facility] Comment on above: Performed By: #### P HOS, URIC, MG, CMP, DBIL, LIPID #### [facility] [address] [address] [address] Karla Lagos Cholesterol.total/C holesterol in HDL [Mass ratio] 2.6 {ratio} Normal [facility] Comment on above: Performed By: #### P HOS, URIC, MG, CMP, DBIL, LIPID #### [facility] [address] [place] [address] Dr. Karla Lagos HDL NORMAL > or = 60 mg/dl - LO W CARDIOVASCULAR RISK <40 mg/dl - HIGH CARDIOVASCULAR RISK Normal [facility] Comment on above: Performed By: #### P HOS, URIC, MG, CMP, DBIL, LIPID #### [facility] [address] [place] [address] Dr. Karla Lagos LDL CALC NORMAL SEE BELOW Normal [facility] Comment on above: Result Comment: <100 mg/dl OPTIMAL 100 - 129 mg/dl NEAR OR ABOVE OPTIMAL 130 - 159 mg/dl BORDERLINE HIGH 160 - 189 mg/dl HIGH >190 mg/dl VERY HIGH Performed By: #### P HOS, URIC, MG, CMP, DBIL, LIPID #### [facility] [address] [place] [address] Dr. Karla Lagos Triglyceride [Mass/Vol] 137 mg/dL Normal <=150 [facility] Comment on above: Performed By: #### P HOS, URIC, MG, CMP, DBIL, LIPID #### [facility] [address] [place] [address] Dr. Karla Lagos VLDL CALC 27.4 mg/dL Normal [facility] Comment on above: Performed By: #### P HOS, URIC, MG, CMP, DBIL, LIPID #### [facility] [address] [place] [address] Dr. Karla Lagos MAGNESIUMon 02-24-2022 Magnesium [Mass/Vol] 1.5 mg/dL Critically low 1.8-2.4 [facility] Comment on above: Performed By: #### P HOS, URIC, MG, CMP, DBIL, LIPID #### [facility] [address] [place] [address] Dr. Karla Lagos PHOSPHORUSon 02-24-2022 Phosphate [Mass/Vol] 3.2 mg/dL Normal 2.6-4.7 [facility] Comment on above: Performed By: #### P HOS, URIC, MG, CMP, DBIL, LIPID #### [facility] [address] [place] [address] Dr. Karla Lagos PROF 14(COMP METB)on 022 Albumin [Mass/Vol] 4.1 g/dL Normal 3.4-5.0 [facility] Comment on above: Performed By: #### P HOS, URIC, MG, CMP, DBIL, LIPID #### [facility] [address] [place] [address] Dr. Karla Lagos Albumin/Globulin [Mass ratio] 1.4 {ratio} Normal [facility] Comment on above: Performed By: #### P HOS, URIC, MG, CMP, DBIL, LIPID #### [facility] [address] [place] [address] Dr. Karla Lagos ALP [Catalytic activity/Vol] 73 U/L Normal 46-116 [facility] Comment on above: Performed By: #### P HOS, URIC, MG, CMP, DBIL, LIPID #### [facility] [address] [place] [address] Dr. Karla Laogs ALT [Catalytic activity/Vol] 27 U/L Normal 16-63 [facility] Comment on above: Performed By: #### P HOS, URIC, MG, CMP, DBIL, LIPID #### [facility] [address] [place] [address] Dr. Karla Lagos Anion gap [Moles/Vol] 11.7 mmol/L Normal [facility] Comment on above: Performed By: #### P HOS, URIC, MG, CMP, DBIL, LIPID #### [facility] [address] [place] [address] Dr. Karla Lagos AST [Catalytic activity/Vol] 16 U/L Normal 15-37 [facility] Comment on above: Performed By: #### P HOS, URIC, MG, CMP, DBIL, LIPID #### [facility] [address] [place] [address] Dr. Karla Lagos Bilirubin [Mass/Vol] 0.8 mg/dL Normal 0.2-1.0 [facility] Comment on above: Performed By: #### P HOS, URIC, MG, CMP, DBIL, LIPID #### [facility] [address] [address] [address] Karla Lagos Calcium [Mass/Vol] 9.1 mg/dL Normal 8.5-10.1 [facility] Comment on above: Performed By: #### P HOS, URIC, MG, CMP, DBIL, LIPID #### [facility] [address] [address] [address] Karla Lagos Chloride [Moles/Vol] 104 mmol/L Normal 98-107 [facility] Comment on above: Performed By: #### P HOS, URIC, MG, CMP, DBIL, LIPID #### [facility] [address] [place] [address] Dr. Karla Lagos CO2 [Moles/Vol] 29.4 mmol/L Normal 21.0-32.0 [facility] Comment on above: Performed By: #### P HOS, URIC, MG, CMP, DBIL, LIPID #### [facility] [address] [place] [address] Dr. Karla Lagos Creatinine [Mass/Vol] 1.27 mg/dL Normal 0.70-1.30 [facility] Comment on above: Performed By: #### P HOS, URIC, MG, CMP, DBIL, LIPID #### [facility] [address] [place] [address] Dr. Karla Lagos EGFR-AF TAJIK >60 Normal >=60 [facility] Comment on above: Performed By: #### P HOS, URIC, MG, CMP, DBIL, LIPID #### [facility] [address] [place] [address] Dr. Karla Lagos EGFR-NON AF TAJIK 58 mL/min/1.73m2 Critically low >=60 [facility] Comment on above: Performed By: #### P HOS, URIC, MG, CMP, DBIL, LIPID #### [facility] [address] [place] [address] Dr. Karla Lagos Globulin (S) [Mass/Vol] 2.9 g/dL Normal [facility] Comment on above: Performed By: #### P HOS, URIC, MG, CMP, DBIL, LIPID #### [facility] [address] [address] [address] Karla Lagos Glucose [Mass/Vol] 113 mg/dL Critically high 74-106 [facility] Comment on above: Performed By: #### P HOS, URIC, MG, CMP, DBIL, LIPID #### [facility] [address] [address] [address] Karla Lagos Potassium [Moles/Vol] 4.1 mmol/L Normal 3.5-5.1 [facility] Comment on above: Performed By: #### P HOS, URIC, MG, CMP, DBIL, LIPID #### [facility] [address] [place] [address] Dr. Karla Lagos Protein [Mass/Vol] 7.0 g/dL Normal 6.4-8.2 [facility] Comment on above: Performed By: #### P HOS, URIC, MG, CMP, DBIL, LIPID #### [facility] [address] [place] [address] Dr. Karla Lagos Sodium [Moles/Vol] 141 mmol/L Normal 136-145 [facility] Comment on above: Performed By: #### P HOS, URIC, MG, CMP, DBIL, LIPID #### [facility] [address] [place] [address] Dr. Karla Lagos Urea nitrogen [Mass/Vol] 18.0 mg/dL Normal 7.0-18.0 [facility] Comment on above: Performed By: #### P HOS, URIC, MG, CMP, DBIL, LIPID #### [facility] [address] [place] [address] Dr. Karla Lagos Urea nitrogen/Creatinine [Mass ratio] 14.2 mg/mg Normal [facility] Comment on above: Performed By: #### P HOS, URIC, MG, CMP, DBIL, LIPID #### [facility] [address] [place] [address] Dr. Karla Lagos URIC ACID SERUMon 02-24-2022 Urate [Mass/Vol] 6.0 mg/dL Normal 3.5-7.2 [facility] Comment on above: Performed By: #### P HOS, URIC, MG, CMP, DBIL, LIPID #### [facility] [address] [place], [place] [address] Dr. Karla Lagos XR Chest 2 Views*on 01-14-20 22 XR Chest 2 Views* FINDINGS: Comparison made with prior examination of September 24, 2020. Improved aeration with no persistent parenchymal consolidation. No pleural or pericardial effusions. Normal cardiac silhouette size. Sternotomy wires. Left central cardiac pacemaker. IMPRESSION: 1. Minimal residual post-inflammatory sequela. Report reported and signed by Anjum Remy on 01/13/2022 1143 Normal [facility] ECHOCARDIO M/2D COMPLETEon 0 09-28-2021 ECHOCARDIO M/2D COMPLETE Patient: VISHAL DUKE Exam Date: 09/28/2021 : 1960 Gender:M Ordering : DR FEDERICO CHESTER M.D. Admission #: [id number] Family : DR ROSA M GONZALES M.D. Order #: [id number] CLICK HERE TO VIEW EXAM ECHOCARDIOGRAM REPORT [...] Area(A4C): 20.50 cm2 Left Atrium Systolic Volume(A2C): 98461 mm3 Left Atrium Systolic Volume(A4C): 01187 mm3 Mitral Valve MV E to A [...] Frazier M.D. on 09/28/2021 at 19:38 Normal [facility] Bilirubin, Directon 09-28-19 22 DBIL <0.2 Normal [facility] Comment on above: Result Comment: Refe rence range change 03/03/2017. Prior reference range 0.1-0.3 mg/dL. Performed By: #### C BCAD, MG, URIC, LIPD, PHOS, CMP, DBIL #### [facility] [address] [place], [place] [id number] Complete Blood Count with Au to Diffon 09-27-2021 Basophils (Bld) [#/Vol] 0.06 10*3/uL Normal 0.00-0.20 [facility] Comment on above: Performed By: #### C BCAD, MG, URIC, LIPD, PHOS, CMP, DBIL #### [facility] [address], [place] [id number] Basophils/100 WBC (Bld) 1.0 % Normal [facility] Comment on above: Performed By: #### C BCAD, MG, URIC, LIPD, PHOS, CMP, DBIL #### [facility] [address] [place], [place] [id number] Eosinophils (Bld) [#/Vol] 0.09 10*3/uL Normal 0.02-0.50 [facility] Comment on above: Performed By: #### C BCAD, MG, URIC, LIPD, PHOS, CMP, DBIL #### [facility] [address], [place] [id number] Eosinophils/100 WBC (Bld) 1.5 % Normal [facility] Comment on above: Performed By: #### C BCAD, MG, URIC, LIPD, PHOS, CMP, DBIL #### [facility] [address], [place] [id number] Erythrocyte distribution width (RBC) [Ratio] 14.1 % Normal 11.0-15.0 [facility] Comment on above: Performed By: #### C BCAD, MG, URIC, LIPD, PHOS, CMP, DBIL #### [facility] [address], [place] [id number] Hematocrit (Bld) [Volume fraction] 51.6 % High 38.5-50.0 [facility] Comment on above: Performed By: #### C BCAD, MG, URIC, LIPD, PHOS, CMP, DBIL #### [facility] [address], [place] [id number] Hemoglobin (Bld) [Mass/Vol] 16.5 g/dL Normal 13.0-17.1 [facility] Comment on above: Performed By: #### C BCAD, MG, URIC, LIPD, PHOS, CMP, DBIL #### [facility] [address], [place] [id number] Lymphocytes (Bld) [#/Vol] 1.0 10*3/uL Normal 0.9-3.9 [facility] Comment on above: Performed By: #### C BCAD, MG, URIC, LIPD, PHOS, CMP, DBIL #### [facility] [address], [place] [id number] Lymphocytes/100 WBC (Bld) 16.3 % Normal [facility] Comment on above: Performed By: #### C BCAD, MG, URIC, LIPD, PHOS, CMP, DBIL #### [facility] [address], [place] [id number] MCH (RBC) [Entitic mass] 29.9 pg Normal 27.0-33.0 [facility] Comment on above: Performed By: #### C BCAD, MG, URIC, LIPD, PHOS, CMP, DBIL #### [facility] [address], [place] [id number] MCHC (RBC) [Mass/Vol] 32.0 g/dL Normal 32.0-36.0 [facility] Comment on above: Performed By: #### C BCAD, MG, URIC, LIPD, PHOS, CMP, DBIL #### [facility] [address], [place] [id number] MCV (RBC) [Entitic vol] 94 fL Normal 80-100 [facility] Comment on above: Performed By: #### C BCAD, MG, URIC, LIPD, PHOS, CMP, DBIL #### [facility] [address], [place] [id number] Monocytes (Bld) [#/Vol] 0.7 10*3/uL Normal 0.2-0.9 [facility] Comment on above: Performed By: #### C BCAD, MG, URIC, LIPD, PHOS, CMP, DBIL #### [facility] [address], [place] [id number] Monocytes/100 WBC (Bld) 11.1 % Normal [facility] Comment on above: Performed By: #### C BCAD, MG, URIC, LIPD, PHOS, CMP, DBIL #### [facility] [address], [place] [id number] Neutrophils (Bld) [#/Vol] 4.2 10*3/uL Normal 1.5-7.8 [facility] Comment on above: Performed By: #### C BCAD, MG, URIC, LIPD, PHOS, CMP, DBIL #### [facility] [address], [place] [id number] Neutrophils/100 WBC (Bld) 69.8 % Normal [facility] Comment on above: Performed By: #### C BCAD, MG, URIC, LIPD, PHOS, CMP, DBIL #### [facility] [address], [place] [id number] Platelet mean volume (Bld) [Entitic vol] 10.80 fL Normal 7.50-12.50 [facility] Comment on above: Performed By: #### C BCAD, MG, URIC, LIPD, PHOS, CMP, DBIL #### [facility] [address], [place] [id number] Platelets (Bld) [#/Vol] 247 10*3/uL Normal 140-400 [facility] Comment on above: Performed By: #### C BCAD, MG, URIC, LIPD, PHOS, CMP, DBIL #### [facility] [address], [place] [id number] RBC (Bld) [#/Vol] 5.52 10*6/uL Normal 4.20-5.80 [facility] Comment on above: Performed By: #### C BCAD, MG, URIC, LIPD, PHOS, CMP, DBIL #### [facility] [address], [place] [id number] RDW-SD 48.9 fL Normal 37.0-50.0 [facility] Comment on above: Performed By: #### C BCAD, MG, URIC, LIPD, PHOS, CMP, DBIL #### [facility] [address], [place] [id number] WBC (Bld) [#/Vol] 6.0 10*3/uL Normal 3.8-11.0 [facility] [place] [facility] Comment on above: Performed By: #### C BCAD, MG, URIC, LIPD, PHOS, CMP, DBIL #### [facility] [address], [place] [id number] Comprehensive Metabolic Pane [facility] 09-27-2021 Albumin [Mass/Vol] 5.0 g/dL Normal 3.6-5.1 [facility] [place] [facility] Comment on above: Performed By: #### C BCAD, MG, URIC, LIPD, PHOS, CMP, DBIL #### [facility] [address], [place] [id number] Albumin/Globulin [Mass ratio] 2.8 {ratio} High 1.0-2.5 [facility] Comment on above: Performed By: #### C BCAD, MG, URIC, LIPD, PHOS, CMP, DBIL #### [facility] [address], [place] [id number] ALP [Catalytic activity/Vol] 79 U/L Normal 40-129 [facility] Comment on above: Performed By: #### C BCAD, MG, URIC, LIPD, PHOS, CMP, DBIL #### [facility] [address], [place] [id number] ALT [Catalytic activity/Vol] 29 U/L Normal 9-46 [facility] Comment on above: Result Comment: 03/17 Female reference range changed. Performed By: #### C BCAD, MG, URIC, LIPD, PHOS, CMP, DBIL #### [facility] [address], [place] [id number] Anion gap [Moles/Vol] 23 mmol/L High 12-20 [facility] Comment on above: Result Comment: Effe ctive 04/22/2019 reference range changed. Performed By: #### C BCAD, MG, URIC, LIPD, PHOS, CMP, DBIL #### [facility] [address], [place] [id number] AST [Catalytic activity/Vol] 25 U/L Normal 10-40 [facility] Comment on above: Performed By: #### C BCAD, MG, URIC, LIPD, PHOS, CMP, DBIL #### [facility] [address], [place] [id number] Bilirubin [Mass/Vol] 0.66 mg/dL Normal 0.30-1.20 [facility] Comment on above: Performed By: #### C BCAD, MG, URIC, LIPD, PHOS, CMP, DBIL #### [facility] [address], [place] [id number] BUN/CREA 18 Ratio Normal 6-22 [facility] Comment on above: Performed By: #### C BCAD, MG, URIC, LIPD, PHOS, CMP, DBIL #### [facility] [address], [place] [id number] Calcium [Mass/Vol] 10.0 mg/dL Normal 8.6-10.2 [facility] Comment on above: Performed By: #### C BCAD, MG, URIC, LIPD, PHOS, CMP, DBIL #### [facility] [address], [place] [id number] Chloride [Moles/Vol] 105 mmol/L Normal 98-107 [facility] Comment on above: Performed By: #### C BCAD, MG, URIC, LIPD, PHOS, CMP, DBIL #### [facility] [address], [place] [id number] CO2 [Moles/Vol] 20 mmol/L Normal 20-31 [facility] Comment on above: Performed By: #### C BCAD, MG, URIC, LIPD, PHOS, CMP, DBIL #### [facility] [address], [place] [id number] Creatinine [Mass/Vol] 1.2 mg/dL Normal 0.7-1.4 [facility] Comment on above: Performed By: #### C BCAD, MG, URIC, LIPD, PHOS, CMP, DBIL #### [facility] [address], [place] [id number] eGFRAA 72 mL/min/1.73m2 Normal >60 [facility] Comment on above: Performed By: #### C BCAD, MG, URIC, LIPD, PHOS, CMP, DBIL #### [facility] [address], [place] [id number] eGFRNAA 59 mL/min/1.73m2 Low >60 [facility] Comment on above: Performed By: #### C BCAD, MG, URIC, LIPD, PHOS, CMP, DBIL #### [facility] [address], [place] [id number] Globulin (S) [Mass/Vol] 1.8 g/dL Low 1.9-3.7 [facility] Comment on above: Performed By: #### C BCAD, MG, URIC, LIPD, PHOS, CMP, DBIL #### [facility] [address], [place] [id number] Glucose [Mass/Vol] 121 mg/dL High 65-99 [facility] [place] [facility] Comment on above: Result Comment: For FASTING Glucose --- ADA reference ranges: Normal 65-99 mg/dl Prediabetes 100-125 Diabetes >/= 126 Performed By: #### C BCAD, MG, URIC, LIPD, PHOS, CMP, DBIL #### [facility] [address], [place] [id number] Potassium [Moles/Vol] 4.5 mmol/L Normal 3.5-5.5 [facility] Comment on above: Performed By: #### C BCAD, MG, URIC, LIPD, PHOS, CMP, DBIL #### [facility] [address], [place] [id number] Protein [Mass/Vol] 6.8 g/dL Normal 6.1-8.1 [facility] [place] [facility] Comment on above: Performed By: #### C BCAD, MG, URIC, LIPD, PHOS, CMP, DBIL #### [facility] [address], [place] [id number] Sodium [Moles/Vol] 143 mmol/L Normal 135-146 [facility] Comment on above: Performed By: #### C BCAD, MG, URIC, LIPD, PHOS, CMP, DBIL #### [facility] [address], [place] [id number] Urea nitrogen [Mass/Vol] 23 mg/dL Normal 7-25 [facility] Comment on above: Performed By: #### C BCAD, MG, URIC, LIPD, PHOS, CMP, DBIL #### [facility] [address], [place] [id number] Lipid Panelon 09-27-2021 Cholesterol [Mass/Vol] 131 mg/dL Normal 125-200 [facility] Comment on above: Result Comment: Low risk < 200mg/dL Borderline risk 201-239 mg/dl High risk > or equal to 240 Performed By: #### C BCAD, MG, URIC, LIPD, PHOS, CMP, DBIL #### [facility] [address], [place] [id number] Cholesterol in HDL [Mass/Vol] 43 mg/dL Normal >40 [facility] Comment on above: Result Comment: High Cardiovascular Risk HDL <40 mg/dL Low Cardiovascular Risk HDL > or equal to 60 mg/dl Performed By: #### C BCAD, MG, URIC, LIPD, PHOS, CMP, DBIL #### [facility] [address], [place] [id number] Cholesterol in LDL [Mass/Vol] 52 mg/dL Normal [facility] Comment on above: Result Comment: LDL ATP III CLASSIFICATION LDL less than 100 mg/dl Optimal LDL 100-129 mg/dl Near or above optimal LDL 130-159 Borderline high LDL 160-189 High LDL greater than 189 mg/dl Very High Performed By: #### C BCAD, MG, URIC, LIPD, PHOS, CMP, DBIL #### [facility] [address], [place] [id number] Cholesterol in VLDL [Mass/Vol] 36 mg/dL Normal [facility] Comment on above: Performed By: #### C BCAD, MG, URIC, LIPD, PHOS, CMP, DBIL #### [facility] [address], [place] [id number] Cholesterol.total/C holesterol in HDL [Mass ratio] 3 {ratio} Normal [facility] Comment on above: Performed By: #### C BCAD, MG, URIC, LIPD, PHOS, CMP, DBIL #### [facility] [address], [place] [id number] Triglyceride [Mass/Vol] 180 mg/dL High 30-150 [facility] Comment on above: Result Comment: TRIG ATPIII CLASSIFICATIONS TRIG less than 150 mg/dl Normal TRIG 150-199 mg/dl Borderline High TRIG 200-500 mg/dl High TRIG greather than 500 mg/dl Very High Performed By: #### C BCAD, MG, URIC, LIPD, PHOS, CMP, DBIL #### [facility] [address], [place] [id number] Magnesiumon 09-27-2021 Magnesium [Mass/Vol] 1.9 mg/dL Normal 1.5-2.3 [facility] Comment on above: Performed By: #### C BCAD, MG, URIC, LIPD, PHOS, CMP, DBIL #### [facility] [address], [place] [id number] Phosphoruson 09-27-2021 Phosphate [Mass/Vol] 3.6 mg/dL Normal 2.2-4.4 [facility] Comment on above: Performed By: #### C BCAD, MG, URIC, LIPD, PHOS, CMP, DBIL #### [facility] [address], [place] [id number] Uric Acidon 09-27-2021 URIC 6.5 mg/dL Normal 4.0-8.0 [facility] Comment on above: Result Comment: Refe rence range change 03/03/2017. Prior reference range F 2.4-5.7mg/dL. M 3.4-7.0 mg/dL. Performed By: #### C BCAD, MG, URIC, LIPD, PHOS, CMP, DBIL #### [facility] [address], [place] [id number] Bilirubin, Directon 08-25-19 22 DBIL <0.2 Normal [facility] Comment on above: Result Comment: Refe rence range change 03/03/2017. Prior reference range 0.1-0.3 mg/dL. Performed By: #### C BCAD, MG, URIC, LIPD, PHOS, CMP, DBIL #### [facility] [address], [place] [id number] Complete Blood Count with Au to Diffon 08-24-2021 Basophils (Bld) [#/Vol] 0.06 10*3/uL Normal 0.00-0.20 [facility] Comment on above: Performed By: #### C BCAD, MG, URIC, LIPD, PHOS, CMP, DBIL #### [facility] [address], [place] [id number] Basophils/100 WBC (Bld) 1.1 % Normal [facility] Comment on above: Performed By: #### C BCAD, MG, URIC, LIPD, PHOS, CMP, DBIL #### [facility] [address], [place] [id number] Eosinophils (Bld) [#/Vol] 0.10 10*3/uL Normal 0.02-0.50 [facility] Comment on above: Performed By: #### C BCAD, MG, URIC, LIPD, PHOS, CMP, DBIL #### [facility] [address], [place] [id number] Eosinophils/100 WBC (Bld) 1.8 % Normal [facility] Comment on above: Performed By: #### C BCAD, MG, URIC, LIPD, PHOS, CMP, DBIL #### [facility] [address], [place] [id number] Erythrocyte distribution width (RBC) [Ratio] 14.5 % Normal 11.0-15.0 [facility] Comment on above: Performed By: #### C BCAD, MG, URIC, LIPD, PHOS, CMP, DBIL #### [facility] [address], [place] [id number] Hematocrit (Bld) [Volume fraction] 50.4 % High 38.5-50.0 [facility] Comment on above: Performed By: #### C BCAD, MG, URIC, LIPD, PHOS, CMP, DBIL #### [facility] [address], [place] [id number] Hemoglobin (Bld) [Mass/Vol] 16.4 g/dL Normal 13.0-17.1 [facility] Comment on above: Performed By: #### C BCAD, MG, URIC, LIPD, PHOS, CMP, DBIL #### [facility] [address], [place] [id number] Lymphocytes (Bld) [#/Vol] 0.9 10*3/uL Normal 0.9-3.9 [facility] Comment on above: Performed By: #### C BCAD, MG, URIC, LIPD, PHOS, CMP, DBIL #### [facility] [address], [place] [id number] Lymphocytes/100 WBC (Bld) 15.2 % Normal [facility] Comment on above: Performed By: #### C BCAD, MG, URIC, LIPD, PHOS, CMP, DBIL #### [facility] [address], [place] [id number] MCH (RBC) [Entitic mass] 30.5 pg Normal 27.0-33.0 [facility] Comment on above: Performed By: #### C BCAD, MG, URIC, LIPD, PHOS, CMP, DBIL #### [facility] [address], [place] [id number] MCHC (RBC) [Mass/Vol] 32.5 g/dL Normal 32.0-36.0 [facility] Comment on above: Performed By: #### C BCAD, MG, URIC, LIPD, PHOS, CMP, DBIL #### [facility] [address], [place] [id number] MCV (RBC) [Entitic vol] 94 fL Normal 80-100 [facility] Comment on above: Performed By: #### C BCAD, MG, URIC, LIPD, PHOS, CMP, DBIL #### [facility] [address], [place] [id number] Monocytes (Bld) [#/Vol] 0.7 10*3/uL Normal 0.2-0.9 [place] [facility] Comment on above: Performed By: #### C BCAD, MG, URIC, LIPD, PHOS, CMP, DBIL #### [facility] [address], [place] [id number] Monocytes/100 WBC (Bld) 12.7 % Normal [facility] Comment on above: Performed By: #### C BCAD, MG, URIC, LIPD, PHOS, CMP, DBIL #### [facility] [address], [place] [id number] Neutrophils (Bld) [#/Vol] 3.9 10*3/uL Normal 1.5-7.8 [facility] Comment on above: Performed By: #### C BCAD, MG, URIC, LIPD, PHOS, CMP, DBIL #### [facility] [address], [place] [id number] Neutrophils/100 WBC (Bld) 68.7 % Normal [facility] Comment on above: Performed By: #### C BCAD, MG, URIC, LIPD, PHOS, CMP, DBIL #### [facility] [address], [place] [id number] Platelet mean volume (Bld) [Entitic vol] 11.20 fL Normal 7.50-12.50 [facility] Comment on above: Performed By: #### C BCAD, MG, URIC, LIPD, PHOS, CMP, DBIL #### [facility] [address], [place] [id number] Platelets (Bld) [#/Vol] 230 10*3/uL Normal 140-400 [facility] Comment on above: Performed By: #### C BCAD, MG, URIC, LIPD, PHOS, CMP, DBIL #### [facility] [address], [place] [id number] RBC (Bld) [#/Vol] 5.38 10*6/uL Normal 4.20-5.80 [facility] Comment on above: Performed By: #### C BCAD, MG, URIC, LIPD, PHOS, CMP, DBIL #### [facility] [address], [place] [id number] RDW-SD 49.1 fL Normal 37.0-50.0 [facility] Comment on above: Performed By: #### C BCAD, MG, URIC, LIPD, PHOS, CMP, DBIL #### [facility] [address], [place] [id number] WBC (Bld) [#/Vol] 5.6 10*3/uL Normal 3.8-11.0 [facility] [place] [facility] Comment on above: Performed By: #### C BCAD, MG, URIC, LIPD, PHOS, CMP, DBIL #### [facility] [address], [place] [id number] Comprehensive Metabolic Pane [facility] 08-24-2021 Albumin [Mass/Vol] 5.0 g/dL Normal 3.6-5.1 [facility] [place] [facility] Comment on above: Performed By: #### C BCAD, MG, URIC, LIPD, PHOS, CMP, DBIL #### [facility] [address], [place] [id number] Albumin/Globulin [Mass ratio] 2.6 {ratio} High 1.0-2.5 [facility] Comment on above: Performed By: #### C BCAD, MG, URIC, LIPD, PHOS, CMP, DBIL #### [facility] [address], [place] [id number] ALP [Catalytic activity/Vol] 75 U/L Normal 40-129 [facility] Comment on above: Performed By: #### C BCAD, MG, URIC, LIPD, PHOS, CMP, DBIL #### [facility] [address], [place] [id number] ALT [Catalytic activity/Vol] 30 U/L Normal 9-46 [facility] Comment on above: Result Comment: 03/17 Female reference range changed. Performed By: #### C BCAD, MG, URIC, LIPD, PHOS, CMP, DBIL #### [facility] [address], [place] [id number] Anion gap [Moles/Vol] 18 mmol/L Normal 12-20 [facility] Comment on above: Result Comment: Effe ctive 04/22/2019 reference range changed. Performed By: #### C BCAD, MG, URIC, LIPD, PHOS, CMP, DBIL #### [facility] [address], [place] [id number] AST [Catalytic activity/Vol] 26 U/L Normal 10-40 [facility] Comment on above: Performed By: #### C BCAD, MG, URIC, LIPD, PHOS, CMP, DBIL #### [facility] [address], [place] [id number] Bilirubin [Mass/Vol] 0.67 mg/dL Normal 0.30-1.20 [facility] Comment on above: Performed By: #### C BCAD, MG, URIC, LIPD, PHOS, CMP, DBIL #### [facility] [address], [place] [id number] BUN/CREA 19 Ratio Normal 6-22 [facility] Comment on above: Performed By: #### C BCAD, MG, URIC, LIPD, PHOS, CMP, DBIL #### [facility] [address], [place] [id number] Calcium [Mass/Vol] 9.9 mg/dL Normal 8.6-10.2 [facility] Comment on above: Performed By: #### C BCAD, MG, URIC, LIPD, PHOS, CMP, DBIL #### [facility] [address], [place] [id number] Chloride [Moles/Vol] 103 mmol/L Normal 98-107 [facility] Comment on above: Performed By: #### C BCAD, MG, URIC, LIPD, PHOS, CMP, DBIL #### [facility] [address], [place] [id number] CO2 [Moles/Vol] 25 mmol/L Normal 20-31 [facility] Comment on above: Performed By: #### C BCAD, MG, URIC, LIPD, PHOS, CMP, DBIL #### [facility] [address], [place] [id number] Creatinine [Mass/Vol] 1.1 mg/dL Normal 0.7-1.4 [facility] Comment on above: Performed By: #### C BCAD, MG, URIC, LIPD, PHOS, CMP, DBIL #### [facility] [address], [place] [id number] eGFRAA 81 mL/min/1.73m2 Normal >60 [facility] Comment on above: Performed By: #### C BCAD, MG, URIC, LIPD, PHOS, CMP, DBIL #### [facility] [address], [place] [id number] eGFRNAA 67 mL/min/1.73m2 Normal >60 [facility] Comment on above: Performed By: #### C BCAD, MG, URIC, LIPD, PHOS, CMP, DBIL #### [facility] [address], [place] [id number] Globulin (S) [Mass/Vol] 1.9 g/dL Normal 1.9-3.7 [facility] Comment on above: Performed By: #### C BCAD, MG, URIC, LIPD, PHOS, CMP, DBIL #### [facility] [address], [place] [id number] Glucose [Mass/Vol] 125 mg/dL High 65-99 [facility] [place] [facility] Comment on above: Result Comment: For FASTING Glucose --- ADA reference ranges: Normal 65-99 mg/dl Prediabetes 100-125 Diabetes >/= 126 Performed By: #### C BCAD, MG, URIC, LIPD, PHOS, CMP, DBIL #### [facility] [address], [place] [id number] Potassium [Moles/Vol] 4.2 mmol/L Normal 3.5-5.5 [facility] Comment on above: Performed By: #### C BCAD, MG, URIC, LIPD, PHOS, CMP, DBIL #### [facility] [address], [place] [id number] Protein [Mass/Vol] 6.9 g/dL Normal 6.1-8.1 [facility] [place] [facility] Comment on above: Performed By: #### C BCAD, MG, URIC, LIPD, PHOS, CMP, DBIL #### [facility] [address], [place] [id number] Sodium [Moles/Vol] 141 mmol/L Normal 135-146 [facility] Comment on above: Performed By: #### C BCAD, MG, URIC, LIPD, PHOS, CMP, DBIL #### [facility] [address], [place] [id number] Urea nitrogen [Mass/Vol] 22 mg/dL Normal 7-25 [facility] Comment on above: Performed By: #### C BCAD, MG, URIC, LIPD, PHOS, CMP, DBIL #### [facility] [address], [place] [id number] Hemoglobin A1Con 08-24-2021 EAG 134.11 Normal [facility] Comment on above: Performed By: #### C BCAD, MG, URIC, LIPD, PHOS, CMP, DBIL #### [facility] [address], [place] [id number] HbA1c (Bld) [Mass fraction] 6.3 % High 4.0-6.0 [facility] Comment on above: Performed By: #### C BCAD, MG, URIC, LIPD, PHOS, CMP, DBIL #### [facility] [address], [place] [id number] Lipid Panelon 08-24-2021 Cholesterol [Mass/Vol] 110 mg/dL Low 125-200 [facility] Comment on above: Result Comment: Low risk < 200mg/dL Borderline risk 201-239 mg/dl High risk > or equal to 240 Performed By: #### C BCAD, MG, URIC, LIPD, PHOS, CMP, DBIL #### [facility] [address], [place] [id number] Cholesterol in HDL [Mass/Vol] 38 mg/dL Low >40 [facility] Comment on above: Result Comment: High Cardiovascular Risk HDL <40 mg/dL Low Cardiovascular Risk HDL > or equal to 60 mg/dl Performed By: #### C BCAD, MG, URIC, LIPD, PHOS, CMP, DBIL #### [facility] [address], [place] [id number] Cholesterol in LDL [Mass/Vol] 46 mg/dL Normal [facility] Comment on above: Result Comment: LDL ATP III CLASSIFICATION LDL less than 100 mg/dl Optimal LDL 100-129 mg/dl Near or above optimal LDL 130-159 Borderline high LDL 160-189 High LDL greater than 189 mg/dl Very High Performed By: #### C BCAD, MG, URIC, LIPD, PHOS, CMP, DBIL #### [facility] [address], [place] [id number] Cholesterol in VLDL [Mass/Vol] 26 mg/dL Normal [facility] Comment on above: Performed By: #### C BCAD, MG, URIC, LIPD, PHOS, CMP, DBIL #### [facility] [address], [place] [id number] Cholesterol.total/C holesterol in HDL [Mass ratio] 3 {ratio} Normal [facility] Comment on above: Performed By: #### C BCAD, MG, URIC, LIPD, PHOS, CMP, DBIL #### [facility] [address], [place] [id number] Triglyceride [Mass/Vol] 131 mg/dL Normal 30-150 [facility] Comment on above: Result Comment: TRIG ATPIII CLASSIFICATIONS TRIG less than 150 mg/dl Normal TRIG 150-199 mg/dl Borderline High TRIG 200-500 mg/dl High TRIG greather than 500 mg/dl Very High Performed By: #### C BCAD, MG, URIC, LIPD, PHOS, CMP, DBIL #### [facility] [address], [place] [id number] Magnesiumon 08-24-2021 Magnesium [Mass/Vol] 2.0 mg/dL Normal 1.5-2.3 [facility] Comment on above: Performed By: #### C BCAD, MG, URIC, LIPD, PHOS, CMP, DBIL #### [facility] [address], [place] [id number] Phosphoruson 08-24-2021 Phosphate [Mass/Vol] 3.5 mg/dL Normal 2.2-4.4 [facility] Comment on above: Performed By: #### C BCAD, MG, URIC, LIPD, PHOS, CMP, DBIL #### [facility] [address] [place], [place] [id number] Uric Acidon 08-24-2021 URIC 6.6 mg/dL Normal 4.0-8.0 [facility] Comment on above: Result Comment: Refe rence range change 03/03/2017. Prior reference range F 2.4-5.7mg/dL. M 3.4-7.0 mg/dL. Performed By: #### C BCAD, MG, URIC, LIPD, PHOS, CMP, DBIL #### [facility] [address], [place] [id number] Bilirubin, Directon 07-30-19 22 DBIL <0.2 Normal [facility] Comment on above: Result Comment: Refe rence range change 03/03/2017. Prior reference range 0.1-0.3 mg/dL. Performed By: #### C BCAD, MG, URIC, LIPD, PHOS, CMP, DBIL #### [facility] [address], [place] [id number] Complete Blood Count with Au to Diffon 07-29-2021 Basophils (Bld) [#/Vol] 0.07 10*3/uL Normal 0.00-0.20 [facility] Comment on above: Performed By: #### C BCAD, MG, URIC, LIPD, PHOS, CMP, DBIL #### [facility] [address], [place] [id number] Basophils/100 WBC (Bld) 1.1 % Normal [facility] Comment on above: Performed By: #### C BCAD, MG, URIC, LIPD, PHOS, CMP, DBIL #### [facility] [address], [place] [id number] Eosinophils (Bld) [#/Vol] 0.15 10*3/uL Normal 0.02-0.50 [facility] Comment on above: Performed By: #### C BCAD, MG, URIC, LIPD, PHOS, CMP, DBIL #### [facility] [address], [place] [id number] Eosinophils/100 WBC (Bld) 2.4 % Normal [facility] Comment on above: Performed By: #### C BCAD, MG, URIC, LIPD, PHOS, CMP, DBIL #### [facility] [address], [place] [id number] Erythrocyte distribution width (RBC) [Ratio] 14.0 % Normal 11.0-15.0 [facility] Comment on above: Performed By: #### C BCAD, MG, URIC, LIPD, PHOS, CMP, DBIL #### [facility] [address], [place] [id number] Hematocrit (Bld) [Volume fraction] 50.3 % High 38.5-50.0 [facility] Comment on above: Performed By: #### C BCAD, MG, URIC, LIPD, PHOS, CMP, DBIL #### [facility] [address], [place] [id number] Hemoglobin (Bld) [Mass/Vol] 16.5 g/dL Normal 13.0-17.1 [facility] Comment on above: Performed By: #### C BCAD, MG, URIC, LIPD, PHOS, CMP, DBIL #### [facility] [address], [place] [id number] Lymphocytes (Bld) [#/Vol] 0.9 10*3/uL Normal 0.9-3.9 [facility] Comment on above: Performed By: #### C BCAD, MG, URIC, LIPD, PHOS, CMP, DBIL #### [facility] [address], [place] [id number] Lymphocytes/100 WBC (Bld) 13.4 % Normal [facility] Comment on above: Performed By: #### C BCAD, MG, URIC, LIPD, PHOS, CMP, DBIL #### [facility] [address], [place] [id number] MCH (RBC) [Entitic mass] 29.9 pg Normal 27.0-33.0 [facility] Comment on above: Performed By: #### C BCAD, MG, URIC, LIPD, PHOS, CMP, DBIL #### [facility] [address], [place] [id number] MCHC (RBC) [Mass/Vol] 32.8 g/dL Normal 32.0-36.0 [facility] Comment on above: Performed By: #### C BCAD, MG, URIC, LIPD, PHOS, CMP, DBIL #### [facility] [address], [place] [id number] MCV (RBC) [Entitic vol] 91 fL Normal 80-100 [facility] Comment on above: Performed By: #### C BCAD, MG, URIC, LIPD, PHOS, CMP, DBIL #### [facility] [address], [place] [id number] Monocytes (Bld) [#/Vol] 0.5 10*3/uL Normal 0.2-0.9 [facility] Comment on above: Performed By: #### C BCAD, MG, URIC, LIPD, PHOS, CMP, DBIL #### [facility] [address], [place] [id number] Monocytes/100 WBC (Bld) 8.5 % Normal [facility] Comment on above: Performed By: #### C BCAD, MG, URIC, LIPD, PHOS, CMP, DBIL #### [facility] [address], [place] [id number] Neutrophils (Bld) [#/Vol] 4.7 10*3/uL Normal 1.5-7.8 [facility] Comment on above: Performed By: #### C BCAD, MG, URIC, LIPD, PHOS, CMP, DBIL #### [facility] [address], [place] [id number] Neutrophils/100 WBC (Bld) 73.8 % Normal [facility] Comment on above: Performed By: #### C BCAD, MG, URIC, LIPD, PHOS, CMP, DBIL #### [facility] [address], [place] [id number] Platelet mean volume (Bld) [Entitic vol] 10.40 fL Normal 7.50-12.50 [facility] Comment on above: Performed By: #### C BCAD, MG, URIC, LIPD, PHOS, CMP, DBIL #### [facility] [address], [place] [id number] Platelets (Bld) [#/Vol] 266 10*3/uL Normal 140-400 [facility] Comment on above: Performed By: #### C BCAD, MG, URIC, LIPD, PHOS, CMP, DBIL #### [facility] [address], [place] [id number] RBC (Bld) [#/Vol] 5.51 10*6/uL Normal 4.20-5.80 [facility] Comment on above: Performed By: #### C BCAD, MG, URIC, LIPD, PHOS, CMP, DBIL #### [facility] [address], [place] [id number] RDW-SD 47.4 fL Normal 37.0-50.0 [facility] Comment on above: Performed By: #### C BCAD, MG, URIC, LIPD, PHOS, CMP, DBIL #### [facility] [address], [place] [id number] WBC (Bld) [#/Vol] 6.3 10*3/uL Normal 3.8-11.0 [facility] Comment on above: Performed By: #### C BCAD, MG, URIC, LIPD, PHOS, CMP, DBIL #### [facility] [address], [place] [id number] Comprehensive Metabolic Pane [facility] 07-29-2021 Albumin [Mass/Vol] 5.0 g/dL Normal 3.6-5.1 [facility] Comment on above: Performed By: #### C BCAD, MG, URIC, LIPD, PHOS, CMP, DBIL #### [facility] [address], [place] [id number] Albumin/Globulin [Mass ratio] 2.6 {ratio} High 1.0-2.5 [facility] Comment on above: Performed By: #### C BCAD, MG, URIC, LIPD, PHOS, CMP, DBIL #### [facility] [address], [place] [id number] ALP [Catalytic activity/Vol] 73 U/L Normal 40-129 [facility] Comment on above: Performed By: #### C BCAD, MG, URIC, LIPD, PHOS, CMP, DBIL #### [facility] [address], [place] [id number] ALT [Catalytic activity/Vol] 27 U/L Normal 9-46 [facility] Comment on above: Result Comment: 03/17 Female reference range changed. Performed By: #### C BCAD, MG, URIC, LIPD, PHOS, CMP, DBIL #### [facility] [address], [place] [id number] Anion gap [Moles/Vol] 18 mmol/L Normal 12-20 [facility] Comment on above: Result Comment: Effe ctive 04/22/2019 reference range changed. Performed By: #### C BCAD, MG, URIC, LIPD, PHOS, CMP, DBIL #### [facility] [address], [place] [id number] AST [Catalytic activity/Vol] 23 U/L Normal 10-40 [facility] Comment on above: Performed By: #### C BCAD, MG, URIC, LIPD, PHOS, CMP, DBIL #### [facility] [address], [place] [id number] Bilirubin [Mass/Vol] 0.68 mg/dL Normal 0.30-1.20 [facility] Comment on above: Performed By: #### C BCAD, MG, URIC, LIPD, PHOS, CMP, DBIL #### [facility] [address], [place] [id number] BUN/CREA 16 Ratio Normal 6-22 [facility] Comment on above: Performed By: #### C BCAD, MG, URIC, LIPD, PHOS, CMP, DBIL #### [facility] [address], [place] [id number] Calcium [Mass/Vol] 10.0 mg/dL Normal 8.6-10.2 [facility] Comment on above: Performed By: #### C BCAD, MG, URIC, LIPD, PHOS, CMP, DBIL #### [facility] [address], [place] [id number] Chloride [Moles/Vol] 103 mmol/L Normal 98-107 [facility] Comment on above: Performed By: #### C BCAD, MG, URIC, LIPD, PHOS, CMP, DBIL #### [facility] [address], [place] [id number] CO2 [Moles/Vol] 25 mmol/L Normal 20-31 [facility] Comment on above: Performed By: #### C BCAD, MG, URIC, LIPD, PHOS, CMP, DBIL #### [facility] [address], [place] [id number] Creatinine [Mass/Vol] 1.1 mg/dL Normal 0.7-1.4 [facility] Comment on above: Performed By: #### C BCAD, MG, URIC, LIPD, PHOS, CMP, DBIL #### [facility] [address], [place] [id number] eGFRAA 80 mL/min/1.73m2 Normal >60 [facility] Comment on above: Performed By: #### C BCAD, MG, URIC, LIPD, PHOS, CMP, DBIL #### [facility] [address], [place] [id number] eGFRNAA 66 mL/min/1.73m2 Normal >60 [facility] Comment on above: Performed By: #### C BCAD, MG, URIC, LIPD, PHOS, CMP, DBIL #### [facility] [address], [place] [id number] Globulin (S) [Mass/Vol] 1.9 g/dL Normal 1.9-3.7 [facility] Comment on above: Performed By: #### C BCAD, MG, URIC, LIPD, PHOS, CMP, DBIL #### [facility] [address], [place] [id number] Glucose [Mass/Vol] 109 mg/dL High 65-99 [facility] Comment on above: Result Comment: For FASTING Glucose --- ADA reference ranges: Normal 65-99 mg/dl Prediabetes 100-125 Diabetes >/= 126 Performed By: #### C BCAD, MG, URIC, LIPD, PHOS, CMP, DBIL #### [facility] [address], [place] [id number] Potassium [Moles/Vol] 4.7 mmol/L Normal 3.5-5.5 [facility] Comment on above: Performed By: #### C BCAD, MG, URIC, LIPD, PHOS, CMP, DBIL #### [facility] [address], [place] [id number] Protein [Mass/Vol] 6.9 g/dL Normal 6.1-8.1 [facility] [place] [facility] Comment on above: Performed By: #### C BCAD, MG, URIC, LIPD, PHOS, CMP, DBIL #### [facility] [address], [place] [id number] Sodium [Moles/Vol] 141 mmol/L Normal 135-146 [facility] Comment on above: Performed By: #### C BCAD, MG, URIC, LIPD, PHOS, CMP, DBIL #### [facility] [address], [place] [id number] Urea nitrogen [Mass/Vol] 18 mg/dL Normal 7-25 [facility] Comment on above: Performed By: #### C BCAD, MG, URIC, LIPD, PHOS, CMP, DBIL #### [facility] [address], [place] [id number] Lipid Panelon 07-29-2021 Cholesterol [Mass/Vol] 121 mg/dL Low 125-200 [facility] Comment on above: Result Comment: Low risk < 200mg/dL Borderline risk 201-239 mg/dl High risk > or equal to 240 Performed By: #### C BCAD, MG, URIC, LIPD, PHOS, CMP, DBIL #### [facility] [address], [place] [id number] Cholesterol in HDL [Mass/Vol] 41 mg/dL Normal >40 [facility] Comment on above: Result Comment: High Cardiovascular Risk HDL <40 mg/dL Low Cardiovascular Risk HDL > or equal to 60 mg/dl Performed By: #### C BCAD, MG, URIC, LIPD, PHOS, CMP, DBIL #### [facility] [address] [place], [place] [id number] Cholesterol in LDL [Mass/Vol] 56 mg/dL Normal [facility] Comment on above: Result Comment: LDL ATP III CLASSIFICATION LDL less than 100 mg/dl Optimal LDL 100-129 mg/dl Near or above optimal LDL 130-159 Borderline high LDL 160-189 High LDL greater than 189 mg/dl Very High Performed By: #### C BCAD, MG, URIC, LIPD, PHOS, CMP, DBIL #### [facility] [address], [place] [id number] Cholesterol in VLDL [Mass/Vol] 24 mg/dL Normal [facility] Comment on above: Performed By: #### C BCAD, MG, URIC, LIPD, PHOS, CMP, DBIL #### [facility] [address], [place] [id number] Cholesterol.total/C holesterol in HDL [Mass ratio] 3 {ratio} Normal [facility] Comment on above: Performed By: #### C BCAD, MG, URIC, LIPD, PHOS, CMP, DBIL #### [facility] [address], [place] [id number] Triglyceride [Mass/Vol] 118 mg/dL Normal 30-150 [facility] Comment on above: Result Comment: TRIG ATPIII CLASSIFICATIONS TRIG less than 150 mg/dl Normal TRIG 150-199 mg/dl Borderline High TRIG 200-500 mg/dl High TRIG greather than 500 mg/dl Very High Performed By: #### C BCAD, MG, URIC, LIPD, PHOS, CMP, DBIL #### [facility] [address], [place] [id number] Magnesiumon 07-29-2021 Magnesium [Mass/Vol] 2.0 mg/dL Normal 1.5-2.3 [facility] Comment on above: Performed By: #### C BCAD, MG, URIC, LIPD, PHOS, CMP, DBIL #### [facility] [address], [place] [id number] Phosphoruson 07-29-2021 Phosphate [Mass/Vol] 3.3 mg/dL Normal 2.2-4.4 [facility] Comment on above: Performed By: #### C BCAD, MG, URIC, LIPD, PHOS, CMP, DBIL #### [facility] [address], [place] [id number] Q - TACROLIMUSon 07-29-2021 TACROLIMUS, HIGHLY SENSITIVE, LC/MS/MS 6.3 mcg/L Normal [facility] Comment on above: Order Comment: [facility] performed at: Q, [facility], [address], [address] [place], [address], Night Filler: Shaheed Bazzi MDQuest Collection Date/Time: [id number] Results Received Date/Time: [id number] Reported Date/Time: Result Comment: No d efinitive therapeutic or toxic ranges have been established. Optimal blood drug levels are influenced by type of transplant, patient response, time post- transplant, co-administration of other drugs, and drug formulation. The following trough range is a suggested guideline: 5.0-20.0 mcg/L. This test was developed and its analytical performance characteristics have been determined by [facility]. It has not been cleared or approved by the FDA. This assay has been validated pursuant to the CLIA regulations and is used for clinical purposes. Performed By: #### C BCAD, MG, URIC, LIPD, PHOS, CMP, DBIL #### [facility] [address], [place] [id number] Uric Acidon 07-29-2021 URIC 6.1 mg/dL Normal 4.0-8.0 [facility] Comment on above: Result Comment: Refe rence range change 03/03/2017. Prior reference range F 2.4-5.7mg/dL. M 3.4-7.0 mg/dL. Performed By: #### C BCAD, MG, URIC, LIPD, PHOS, CMP, DBIL #### [facility] [address], [place] [id number] Bilirubin, Directon 06-29-19 DBIL <0.2 Normal [facility] Comment on above: Result Comment: Refe rence range change 03/03/2017. Prior reference range 0.1-0.3 mg/dL. Performed By: #### C BCAD, MG, URIC, LIPD, PHOS, CMP, DBIL #### [facility] [address], [place] [id number] Complete Blood Count with Au to Diffon 06-28-2021 Basophils (Bld) [#/Vol] 0.05 10*3/uL Normal 0.00-0.20 [facility] Comment on above: Performed By: #### C BCAD, MG, URIC, LIPD, PHOS, CMP, DBIL #### [facility] [address], [place] [id number] Basophils/100 WBC (Bld) 0.8 % Normal [facility] Comment on above: Performed By: #### C BCAD, MG, URIC, LIPD, PHOS, CMP, DBIL #### [facility] [address], [place] [id number] Eosinophils (Bld) [#/Vol] 0.10 10*3/uL Normal 0.02-0.50 [facility] Comment on above: Performed By: #### C BCAD, MG, URIC, LIPD, PHOS, CMP, DBIL #### [facility] [address], [place] [id number] Eosinophils/100 WBC (Bld) 1.6 % Normal [facility] Comment on above: Performed By: #### C BCAD, MG, URIC, LIPD, PHOS, CMP, DBIL #### [facility] [address], [place] [id number] Erythrocyte distribution width (RBC) [Ratio] 14.6 % Normal 11.0-15.0 [facility] Comment on above: Performed By: #### C BCAD, MG, URIC, LIPD, PHOS, CMP, DBIL #### [facility] [address], [place] [id number] Hematocrit (Bld) [Volume fraction] 50.7 % High 38.5-50.0 [facility] Comment on above: Performed By: #### C BCAD, MG, URIC, LIPD, PHOS, CMP, DBIL #### [facility] [address], [place] [id number] Hemoglobin (Bld) [Mass/Vol] 16.2 g/dL Normal 13.0-17.1 [facility] Comment on above: Performed By: #### C BCAD, MG, URIC, LIPD, PHOS, CMP, DBIL #### [facility] [address], [place] [id number] Lymphocytes (Bld) [#/Vol] 1.0 10*3/uL Normal 0.9-3.9 [facility] Comment on above: Performed By: #### C BCAD, MG, URIC, LIPD, PHOS, CMP, DBIL #### [facility] [address], [place] [id number] Lymphocytes/100 WBC (Bld) 16.2 % Normal [facility] Comment on above: Performed By: #### C BCAD, MG, URIC, LIPD, PHOS, CMP, DBIL #### [facility] [address], [place] [id number] MCH (RBC) [Entitic mass] 30.0 pg Normal 27.0-33.0 [facility] Comment on above: Performed By: #### C BCAD, MG, URIC, LIPD, PHOS, CMP, DBIL #### [facility] [address], [place] [id number] MCHC (RBC) [Mass/Vol] 32.0 g/dL Normal 32.0-36.0 [facility] Comment on above: Performed By: #### C BCAD, MG, URIC, LIPD, PHOS, CMP, DBIL #### [facility] [address], [place] [id number] MCV (RBC) [Entitic vol] 94 fL Normal 80-100 [facility] Comment on above: Performed By: #### C BCAD, MG, URIC, LIPD, PHOS, CMP, DBIL #### [facility] [address], [place] [id number] Monocytes (Bld) [#/Vol] 0.9 10*3/uL Normal 0.2-0.9 [facility] Comment on above: Performed By: #### C BCAD, MG, URIC, LIPD, PHOS, CMP, DBIL #### [facility] [address], [place] [id number] Monocytes/100 WBC (Bld) 13.4 % Normal [facility] Comment on above: Performed By: #### C BCAD, MG, URIC, LIPD, PHOS, CMP, DBIL #### [facility] [address], [place] [id number] Neutrophils (Bld) [#/Vol] 4.3 10*3/uL Normal 1.5-7.8 [facility] Comment on above: Performed By: #### C BCAD, MG, URIC, LIPD, PHOS, CMP, DBIL #### [facility] [address], [place] [id number] Neutrophils/100 WBC (Bld) 67.7 % Normal [facility] Comment on above: Performed By: #### C BCAD, MG, URIC, LIPD, PHOS, CMP, DBIL #### [facility] [address], [place] [id number] Platelet mean volume (Bld) [Entitic vol] 11.00 fL Normal 7.50-12.50 [facility] Comment on above: Performed By: #### C BCAD, MG, URIC, LIPD, PHOS, CMP, DBIL #### [facility] [address], [place] [id number] Platelets (Bld) [#/Vol] 239 10*3/uL Normal 140-400 [facility] Comment on above: Performed By: #### C BCAD, MG, URIC, LIPD, PHOS, CMP, DBIL #### [facility] [address], [place] [id number] RBC (Bld) [#/Vol] 5.40 10*6/uL Normal 4.20-5.80 [facility] Comment on above: Performed By: #### C BCAD, MG, URIC, LIPD, PHOS, CMP, DBIL #### [facility] [address], [place] [id number] RDW-SD 50.2 fL High 37.0-50.0 [facility] Comment on above: Performed By: #### C BCAD, MG, URIC, LIPD, PHOS, CMP, DBIL #### [facility] [address], [place] [id number] WBC (Bld) [#/Vol] 6.4 10*3/uL Normal 3.8-11.0 [place] [facility] [place] [facility] Comment on above: Performed By: #### C BCAD, MG, URIC, LIPD, PHOS, CMP, DBIL #### [facility] [address], [place] [id number] Comprehensive Metabolic Pane nitin 06-28-2021 Albumin [Mass/Vol] 4.9 g/dL Normal 3.6-5.1 [facility] [place] [employer] [facility] Comment on above: Performed By: #### C BCAD, MG, URIC, LIPD, PHOS, CMP, DBIL #### [facility] [address], [place] [id number] Albumin/Globulin [Mass ratio] 3.3 {ratio} High 1.0-2.5 [facility] Comment on above: Performed By: #### C BCAD, MG, URIC, LIPD, PHOS, CMP, DBIL #### [facility] [address], [place] [id number] ALP [Catalytic activity/Vol] 73 U/L Normal 40-129 [facility] Comment on above: Performed By: #### C BCAD, MG, URIC, LIPD, PHOS, CMP, DBIL #### [facility] [address], [place] [id number] ALT [Catalytic activity/Vol] 26 U/L Normal 9-46 [facility] Comment on above: Result Comment: 03/17 Female reference range changed. Performed By: #### C BCAD, MG, URIC, LIPD, PHOS, CMP, DBIL #### [facility] [address], [place] [id number] Anion gap [Moles/Vol] 16 mmol/L Normal 12-20 [facility] Comment on above: Result Comment: Effe ctive 04/22/2019 reference range changed. Performed By: #### C BCAD, MG, URIC, LIPD, PHOS, CMP, DBIL #### [facility] [address], [place] [id number] AST [Catalytic activity/Vol] 23 U/L Normal 10-40 [facility] Comment on above: Performed By: #### C BCAD, MG, URIC, LIPD, PHOS, CMP, DBIL #### [facility] [address], [place] [id number] Bilirubin [Mass/Vol] 0.76 mg/dL Normal 0.30-1.20 [facility] Comment on above: Performed By: #### C BCAD, MG, URIC, LIPD, PHOS, CMP, DBIL #### [facility] [address], [place] [id number] BUN/CREA 15 Ratio Normal 6-22 [facility] Comment on above: Performed By: #### C BCAD, MG, URIC, LIPD, PHOS, CMP, DBIL #### [facility] [address], [place] [id number] Calcium [Mass/Vol] 9.8 mg/dL Normal 8.6-10.2 [facility] Comment on above: Performed By: #### C BCAD, MG, URIC, LIPD, PHOS, CMP, DBIL #### [facility] [address], [place] [id number] Chloride [Moles/Vol] 103 mmol/L Normal 98-107 [facility] Comment on above: Performed By: #### C BCAD, MG, URIC, LIPD, PHOS, CMP, DBIL #### [facility] [address], [place] [id number] CO2 [Moles/Vol] 26 mmol/L Normal 20-31 [facility] Comment on above: Performed By: #### C BCAD, MG, URIC, LIPD, PHOS, CMP, DBIL #### [facility] [address], [place] [id number] Creatinine [Mass/Vol] 1.1 mg/dL Normal 0.7-1.4 [facility] Comment on above: Performed By: #### C BCAD, MG, URIC, LIPD, PHOS, CMP, DBIL #### [facility] [address], [place] [id number] eGFRAA 80 mL/min/1.73m2 Normal >60 [facility] Comment on above: Performed By: #### C BCAD, MG, URIC, LIPD, PHOS, CMP, DBIL #### [facility] [address], [place] [id number] eGFRNAA 66 mL/min/1.73m2 Normal >60 [facility] Comment on above: Performed By: #### C BCAD, MG, URIC, LIPD, PHOS, CMP, DBIL #### [facility] [address], [place] [id number] Globulin (S) [Mass/Vol] 1.5 g/dL Low 1.9-3.7 [facility] Comment on above: Performed By: #### C BCAD, MG, URIC, LIPD, PHOS, CMP, DBIL #### [facility] [address], [place] [id number] Glucose [Mass/Vol] 130 mg/dL High 65-99 [facility] Comment on above: Result Comment: For FASTING Glucose --- ADA reference ranges: Normal 65-99 mg/dl Prediabetes 100-125 Diabetes >/= 126 Performed By: #### C BCAD, MG, URIC, LIPD, PHOS, CMP, DBIL #### [facility] [address], [place] [id number] Potassium [Moles/Vol] 4.6 mmol/L Normal 3.5-5.5 [facility] Comment on above: Performed By: #### C BCAD, MG, URIC, LIPD, PHOS, CMP, DBIL #### [facility] [address], [place] [id number] Protein [Mass/Vol] 6.4 g/dL Normal 6.1-8.1 [facility] [place] [employer] Comment on above: Performed By: #### C BCAD, MG, URIC, LIPD, PHOS, CMP, DBIL #### [facility] [address], [place] [id number] Sodium [Moles/Vol] 140 mmol/L Normal 135-146 [facility] Comment on above: Performed By: #### C BCAD, MG, URIC, LIPD, PHOS, CMP, DBIL #### [facility] [address], [place] [id number] Urea nitrogen [Mass/Vol] 17 mg/dL Normal 7-25 [facility] Comment on above: Performed By: #### C BCAD, MG, URIC, LIPD, PHOS, CMP, DBIL #### [facility] [address], [place] [id number] Lipid Panelon 06-28-2021 Cholesterol [Mass/Vol] 111 mg/dL Low 125-200 [facility] Comment on above: Result Comment: Low risk < 200mg/dL Borderline risk 201-239 mg/dl High risk > or equal to 240 Performed By: #### C BCAD, MG, URIC, LIPD, PHOS, CMP, DBIL #### [facility] [address], [place] [id number] Cholesterol in HDL [Mass/Vol] 38 mg/dL Low >40 [facility] Comment on above: Result Comment: High Cardiovascular Risk HDL <40 mg/dL Low Cardiovascular Risk HDL > or equal to 60 mg/dl Performed By: #### C BCAD, MG, URIC, LIPD, PHOS, CMP, DBIL #### [facility] [address], [place] [id number] Cholesterol in LDL [Mass/Vol] 47 mg/dL Normal [facility] Comment on above: Result Comment: LDL ATP III CLASSIFICATION LDL less than 100 mg/dl Optimal LDL 100-129 mg/dl Near or above optimal LDL 130-159 Borderline high LDL 160-189 High LDL greater than 189 mg/dl Very High Performed By: #### C BCAD, MG, URIC, LIPD, PHOS, CMP, DBIL #### [facility] [address], [place] [id number] Cholesterol in VLDL [Mass/Vol] 26 mg/dL Normal [facility] Comment on above: Performed By: #### C BCAD, MG, URIC, LIPD, PHOS, CMP, DBIL #### [facility] [address], [place] [id number] Cholesterol.total/C holesterol in HDL [Mass ratio] 3 {ratio} Normal [facility] Comment on above: Performed By: #### C BCAD, MG, URIC, LIPD, PHOS, CMP, DBIL #### [facility] [address], [place] [id number] Triglyceride [Mass/Vol] 132 mg/dL Normal 30-150 [facility] Comment on above: Result Comment: TRIG ATPIII CLASSIFICATIONS TRIG less than 150 mg/dl Normal TRIG 150-199 mg/dl Borderline High TRIG 200-500 mg/dl High TRIG greather than 500 mg/dl Very High Performed By: #### C BCAD, MG, URIC, LIPD, PHOS, CMP, DBIL #### [facility] [address], [place] [id number] Magnesiumon 06-28-2021 Magnesium [Mass/Vol] 1.7 mg/dL Normal 1.5-2.3 [facility] Comment on above: Performed By: #### C BCAD, MG, URIC, LIPD, PHOS, CMP, DBIL #### [facility] [address], [place] [id number] Phosphoruson 06-28-2021 Phosphate [Mass/Vol] 3.7 mg/dL Normal 2.2-4.4 [facility] Comment on above: Performed By: #### C BCAD, MG, URIC, LIPD, PHOS, CMP, DBIL #### [facility] [address], [place] [id number] Uric Acidon 06-28-2021 URIC 6.0 mg/dL Normal 4.0-8.0 [facility] Comment on above: Result Comment: Refe rence range change 03/03/2017. Prior reference range F 2.4-5.7mg/dL. M 3.4-7.0 mg/dL. Performed By: #### C BCAD, MG, URIC, LIPD, PHOS, CMP, DBIL #### [facility] [address], [place] [id number] Pulmonary Functionon 022 Pulmonary Function MR #: [id number] [facility] PT. Name: Vishal Duke Date: 06/02/2021 Date [...] Syed MD Date Trans: 06/06/2021 02:28 P/ [id number] cc: Rosa M Gonzales M.D. [address] [facility] [address] Normal [facility] Bilirubin, Directon 06-01-19 22 DBIL <0.2 Normal [facility] Comment on above: Result Comment: Refe rence range change 03/03/2017. Prior reference range 0.1-0.3 mg/dL. Performed By: #### C BCAD, MG, URIC, LIPD, PHOS, CMP, DBIL #### [facility] [address] [place], [place] [id number] Complete Blood Count with Au to Diffon 06-01-2021 Basophils (Bld) [#/Vol] 0.06 10*3/uL Normal 0.00-0.20 [facility] Comment on above: Performed By: #### C BCAD, MG, URIC, LIPD, PHOS, CMP, DBIL #### [facility] [address], [place] [id number] Basophils/100 WBC (Bld) 0.9 % Normal [facility] Comment on above: Performed By: #### C BCAD, MG, URIC, LIPD, PHOS, CMP, DBIL #### [facility] [address], [place] [id number] Eosinophils (Bld) [#/Vol] 0.12 10*3/uL Normal 0.02-0.50 [facility] Comment on above: Performed By: #### C BCAD, MG, URIC, LIPD, PHOS, CMP, DBIL #### [facility] [address], [place] [id number] Eosinophils/100 WBC (Bld) 1.8 % Normal [facility] Comment on above: Performed By: #### C BCAD, MG, URIC, LIPD, PHOS, CMP, DBIL #### [facility] [address], [place] [id number] Erythrocyte distribution width (RBC) [Ratio] 14.7 % Normal 11.0-15.0 [facility] Comment on above: Performed By: #### C BCAD, MG, URIC, LIPD, PHOS, CMP, DBIL #### [facility] [address], [place] [id number] Hematocrit (Bld) [Volume fraction] 50.8 % High 38.5-50.0 [facility] Comment on above: Performed By: #### C BCAD, MG, URIC, LIPD, PHOS, CMP, DBIL #### [facility] [address], [place] [id number] Hemoglobin (Bld) [Mass/Vol] 16.5 g/dL Normal 13.0-17.1 [facility] Comment on above: Performed By: #### C BCAD, MG, URIC, LIPD, PHOS, CMP, DBIL #### [facility] [address], [place] [id number] Lymphocytes (Bld) [#/Vol] 1.1 10*3/uL Normal 0.9-3.9 [facility] Comment on above: Performed By: #### C BCAD, MG, URIC, LIPD, PHOS, CMP, DBIL #### [facility] [address], [place] [id number] Lymphocytes/100 WBC (Bld) 16.1 % Normal [facility] Comment on above: Performed By: #### C BCAD, MG, URIC, LIPD, PHOS, CMP, DBIL #### [facility] [address], [place] [id number] MCH (RBC) [Entitic mass] 29.8 pg Normal 27.0-33.0 [facility] Comment on above: Performed By: #### C BCAD, MG, URIC, LIPD, PHOS, CMP, DBIL #### [facility] [address], [place] [id number] MCHC (RBC) [Mass/Vol] 32.5 g/dL Normal 32.0-36.0 [facility] Comment on above: Performed By: #### C BCAD, MG, URIC, LIPD, PHOS, CMP, DBIL #### [facility] [address], [place] [id number] MCV (RBC) [Entitic vol] 92 fL Normal 80-100 [facility] Comment on above: Performed By: #### C BCAD, MG, URIC, LIPD, PHOS, CMP, DBIL #### [facility] [address], [place] [id number] Monocytes (Bld) [#/Vol] 0.8 10*3/uL Normal 0.2-0.9 [facility] Comment on above: Performed By: #### C BCAD, MG, URIC, LIPD, PHOS, CMP, DBIL #### [facility] [address], [place] [id number] Monocytes/100 WBC (Bld) 11.4 % Normal [facility] Comment on above: Performed By: #### C BCAD, MG, URIC, LIPD, PHOS, CMP, DBIL #### [facility] [address], [place] [id number] Neutrophils (Bld) [#/Vol] 4.6 10*3/uL Normal 1.5-7.8 [facility] Comment on above: Performed By: #### C BCAD, MG, URIC, LIPD, PHOS, CMP, DBIL #### [facility] [address], [place] [id number] Neutrophils/100 WBC (Bld) 69.2 % Normal [facility] Comment on above: Performed By: #### C BCAD, MG, URIC, LIPD, PHOS, CMP, DBIL #### [facility] [address], [place] [id number] Platelet mean volume (Bld) [Entitic vol] 10.60 fL Normal 7.50-12.50 [facility] Comment on above: Performed By: #### C BCAD, MG, URIC, LIPD, PHOS, CMP, DBIL #### [facility] [address], [place] [id number] Platelets (Bld) [#/Vol] 285 10*3/uL Normal 140-400 [facility] Comment on above: Performed By: #### C BCAD, MG, URIC, LIPD, PHOS, CMP, DBIL #### [facility] [address], [place] [id number] RBC (Bld) [#/Vol] 5.53 10*6/uL Normal 4.20-5.[address] [facility] Comment on above: Performed By: #### C BCAD, MG, URIC, LIPD, PHOS, CMP, DBIL #### [facility] [address], [place] [id number] RDW-SD 49.8 fL Normal 37.0-50.0 [facility] Comment on above: Performed By: #### C BCAD, MG, URIC, LIPD, PHOS, CMP, DBIL #### [facility] [address], [place] [id number] WBC (Bld) [#/Vol] 6.6 10*3/uL Normal 3.8-11.0 [facility] Comment on above: Performed By: #### C BCAD, MG, URIC, LIPD, PHOS, CMP, DBIL #### [facility] [address], [place] [id number] Comprehensive Metabolic Pane nitin 06-01-2021 Albumin [Mass/Vol] 5.0 g/dL Normal 3.6-5.1 [facility] Comment on above: Performed By: #### C BCAD, MG, URIC, LIPD, PHOS, CMP, DBIL #### [facility] [address], [place] [id number] Albumin/Globulin [Mass ratio] 2.6 {ratio} High 1.0-2.5 [facility] Comment on above: Performed By: #### C BCAD, MG, URIC, LIPD, PHOS, CMP, DBIL #### [facility] [address], [place] [id number] ALP [Catalytic activity/Vol] 93 U/L Normal 40-129 [facility] Comment on above: Performed By: #### C BCAD, MG, URIC, LIPD, PHOS, CMP, DBIL #### [facility] [address], [place] [id number] ALT [Catalytic activity/Vol] 30 U/L Normal 9-46 [facility] Comment on above: Result Comment: 03/17 Female reference range changed. Performed By: #### C BCAD, MG, URIC, LIPD, PHOS, CMP, DBIL #### [facility] [address], [place] [id number] Anion gap [Moles/Vol] 21 mmol/L High 12-20 [facility] Comment on above: Result Comment: Effe ctive 04/22/2019 reference range changed. Performed By: #### C BCAD, MG, URIC, LIPD, PHOS, CMP, DBIL #### [facility] [address], [place] [id number] AST [Catalytic activity/Vol] 26 U/L Normal 10-40 [facility] Comment on above: Performed By: #### C BCAD, MG, URIC, LIPD, PHOS, CMP, DBIL #### [facility] [address], [place] [id number] Bilirubin [Mass/Vol] 0.72 mg/dL Normal 0.30-1.20 [place] [facility] Comment on above: Performed By: #### C BCAD, MG, URIC, LIPD, PHOS, CMP, DBIL #### [facility] [address], [place] [id number] BUN/CREA 15 Ratio Normal 6-22 [facility] Comment on above: Performed By: #### C BCAD, MG, URIC, LIPD, PHOS, CMP, DBIL #### [facility] [address], [place] [id number] Calcium [Mass/Vol] 10.4 mg/dL High 8.6-10.2 [facility] Comment on above: Performed By: #### C BCAD, MG, URIC, LIPD, PHOS, CMP, DBIL #### [facility] [address], [place] [id number] Chloride [Moles/Vol] 104 mmol/L Normal 98-107 [facility] Comment on above: Performed By: #### C BCAD, MG, URIC, LIPD, PHOS, CMP, DBIL #### [facility] [address], [place] [id number] CO2 [Moles/Vol] 24 mmol/L Normal 20-31 [facility] Comment on above: Performed By: #### C BCAD, MG, URIC, LIPD, PHOS, CMP, DBIL #### [facility] [address], [place] [id number] Creatinine [Mass/Vol] 1.2 mg/dL Normal 0.7-1.4 [facility] Comment on above: Performed By: #### C BCAD, MG, URIC, LIPD, PHOS, CMP, DBIL #### [facility] [address], [place] [id number] eGFRAA 79 mL/min/1.73m2 Normal >60 [facility] Comment on above: Performed By: #### C BCAD, MG, URIC, LIPD, PHOS, CMP, DBIL #### [facility] [address], [place] [id number] eGFRNAA 65 mL/min/1.73m2 Normal >60 [facility] Comment on above: Performed By: #### C BCAD, MG, URIC, LIPD, PHOS, CMP, DBIL #### [facility] [address], [place] [id number] Globulin (S) [Mass/Vol] 1.9 g/dL Normal 1.9-3.7 [facility] Comment on above: Performed By: #### C BCAD, MG, URIC, LIPD, PHOS, CMP, DBIL #### [facility] [address], [place] [id number] Glucose [Mass/Vol] 108 mg/dL High 65-99 [facility] [place] [employer] Comment on above: Result Comment: For FASTING Glucose --- ADA reference ranges: Normal 65-99 mg/dl Prediabetes 100-125 Diabetes >/= 126 Performed By: #### C BCAD, MG, URIC, LIPD, PHOS, CMP, DBIL #### [facility] [address], [place] [id number] Potassium [Moles/Vol] 5.0 mmol/L Normal 3.5-5.5 [facility] Comment on above: Performed By: #### C BCAD, MG, URIC, LIPD, PHOS, CMP, DBIL #### [facility] [address], [place] [id number] Protein [Mass/Vol] 6.9 g/dL Normal 6.1-8.1 [facility] [place] [employer] [facility] Comment on above: Performed By: #### C BCAD, MG, URIC, LIPD, PHOS, CMP, DBIL #### [facility] [address], [place] [id number] Sodium [Moles/Vol] 143 mmol/L Normal 135-146 [facility] [place] [facility] [facility] Comment on above: Performed By: #### C BCAD, MG, URIC, LIPD, PHOS, CMP, DBIL #### [facility] [address], [place] [id number] Urea nitrogen [Mass/Vol] 17 mg/dL Normal 7-25 [facility] Comment on above: Performed By: #### C BCAD, MG, URIC, LIPD, PHOS, CMP, DBIL #### [facility] [address], [place] [id number] Hemoglobin A1Con 06-01-2021 EAG 139.85 Normal [facility] Comment on above: Performed By: #### A 1C #### [facility] [address], [place] [id number] HbA1c (Bld) [Mass fraction] 6.5 % High 4.0-6.0 [facility] Comment on above: Performed By: #### A 1C #### [facility] [address], [place] [id number] Lipid Panelon 06-01-2021 Cholesterol [Mass/Vol] 129 mg/dL Normal 125-200 [facility] Comment on above: Result Comment: Low risk < 200mg/dL Borderline risk 201-239 mg/dl High risk > or equal to 240 Performed By: #### C BCAD, MG, URIC, LIPD, PHOS, CMP, DBIL #### [facility] [address], [place] [id number] Cholesterol in HDL [Mass/Vol] 44 mg/dL Normal >40 [facility] Comment on above: Result Comment: High Cardiovascular Risk HDL <40 mg/dL Low Cardiovascular Risk HDL > or equal to 60 mg/dl Performed By: #### C BCAD, MG, URIC, LIPD, PHOS, CMP, DBIL #### [facility] [address], [place] [id number] Cholesterol in LDL [Mass/Vol] 61 mg/dL Normal [facility] Comment on above: Result Comment: LDL ATP III CLASSIFICATION LDL less than 100 mg/dl Optimal LDL 100-129 mg/dl Near or above optimal LDL 130-159 Borderline high LDL 160-189 High LDL greater than 189 mg/dl Very High Performed By: #### C BCAD, MG, URIC, LIPD, PHOS, CMP, DBIL #### [facility] [address], [place] [id number] Cholesterol in VLDL [Mass/Vol] 24 mg/dL Normal [facility] Comment on above: Performed By: #### C BCAD, MG, URIC, LIPD, PHOS, CMP, DBIL #### [facility] [address], [place] [id number] Cholesterol.total/C holesterol in HDL [Mass ratio] 3 {ratio} Normal [facility] Comment on above: Performed By: #### C BCAD, MG, URIC, LIPD, PHOS, CMP, DBIL #### [facility] [address], [place] [id number] Triglyceride [Mass/Vol] 119 mg/dL Normal 30-150 [facility] Comment on above: Result Comment: TRIG ATPIII CLASSIFICATIONS TRIG less than 150 mg/dl Normal TRIG 150-199 mg/dl Borderline High TRIG 200-500 mg/dl High TRIG greather than 500 mg/dl Very High Performed By: #### C BCAD, MG, URIC, LIPD, PHOS, CMP, DBIL #### [facility] [address], [place] [id number] Magnesiumon 06-01-2021 Magnesium [Mass/Vol] 1.8 mg/dL Normal 1.5-2.3 [facility] Comment on above: Performed By: #### C BCAD, MG, URIC, LIPD, PHOS, CMP, DBIL #### [facility] [address], [place] [id number] Phosphoruson 06-01-2021 Phosphate [Mass/Vol] 4.3 mg/dL Normal 2.2-4.4 [facility] Comment on above: Performed By: #### C BCAD, MG, URIC, LIPD, PHOS, CMP, DBIL #### [facility] [address], [place] [id number] Uric Acidon 06-01-2021 URIC 6.1 mg/dL Normal 4.0-8.0 [facility] Comment on above: Result Comment: Refe rence range change 03/03/2017. Prior reference range F 2.4-5.7mg/dL. M 3.4-7.0 mg/dL. Performed By: #### C BCAD, MG, URIC, LIPD, PHOS, CMP, DBIL #### [facility] [address], [place] [id number] Bilirubin, Directon 04-30-19 22 DBIL <0.2 Normal [facility] Comment on above: Result Comment: Refe rence range change 03/03/2017. Prior reference range 0.1-0.3 mg/dL. Performed By: #### C BCAD, MG, URIC, LIPD, PHOS, CMP, DBIL #### [facility] [address], [place] [id number] Complete Blood Count with Au to Diffon 04-30-2021 Basophils (Bld) [#/Vol] 0.07 10*3/uL Normal 0.00-0.20 [facility] Comment on above: Performed By: #### C BCAD, MG, URIC, LIPD, PHOS, CMP, DBIL #### [facility] [address], [place] [id number] Basophils/100 WBC (Bld) 1.1 % Normal [facility] Comment on above: Performed By: #### C BCAD, MG, URIC, LIPD, PHOS, CMP, DBIL #### [facility] [address], [place] [id number] Eosinophils (Bld) [#/Vol] 0.12 10*3/uL Normal 0.02-0.50 [facility] Comment on above: Performed By: #### C BCAD, MG, URIC, LIPD, PHOS, CMP, DBIL #### [facility] [address], [place] [id number] Eosinophils/100 WBC (Bld) 1.8 % Normal [facility] Comment on above: Performed By: #### C BCAD, MG, URIC, LIPD, PHOS, CMP, DBIL #### [facility] [address], [place] [id number] Erythrocyte distribution width (RBC) [Ratio] 14.7 % Normal 11.0-15.0 [facility] Comment on above: Performed By: #### C BCAD, MG, URIC, LIPD, PHOS, CMP, DBIL #### [facility] [address], [place] [id number] Hematocrit (Bld) [Volume fraction] 50.5 % High 38.5-50.0 [facility] Comment on above: Performed By: #### C BCAD, MG, URIC, LIPD, PHOS, CMP, DBIL #### [facility] [address], [place] [id number] Hemoglobin (Bld) [Mass/Vol] 16.4 g/dL Normal 13.0-17.1 [facility] Comment on above: Performed By: #### C BCAD, MG, URIC, LIPD, PHOS, CMP, DBIL #### [facility] [address], [place] [id number] Lymphocytes (Bld) [#/Vol] 1.0 10*3/uL Normal 0.9-3.9 [facility] Comment on above: Performed By: #### C BCAD, MG, URIC, LIPD, PHOS, CMP, DBIL #### [facility] [address], [place] [id number] Lymphocytes/100 WBC (Bld) 14.7 % Normal [facility] Comment on above: Performed By: #### C BCAD, MG, URIC, LIPD, PHOS, CMP, DBIL #### [facility] [address], [place] [id number] MCH (RBC) [Entitic mass] 29.4 pg Normal 27.0-33.0 [facility] Comment on above: Performed By: #### C BCAD, MG, URIC, LIPD, PHOS, CMP, DBIL #### [facility] [address], [place] [id number] MCHC (RBC) [Mass/Vol] 32.5 g/dL Normal 32.0-36.0 [facility] Comment on above: Performed By: #### C BCAD, MG, URIC, LIPD, PHOS, CMP, DBIL #### [facility] [address], [place] [id number] MCV (RBC) [Entitic vol] 91 fL Normal 80-100 [facility] Comment on above: Performed By: #### C BCAD, MG, URIC, LIPD, PHOS, CMP, DBIL #### [facility] [address], [place] [id number] Monocytes (Bld) [#/Vol] 0.7 10*3/uL Normal 0.2-0.9 [employer] [place] [facility] Comment on above: Performed By: #### C BCAD, MG, URIC, LIPD, PHOS, CMP, DBIL #### [facility] [address], [place] [id number] Monocytes/100 WBC (Bld) 10.4 % Normal [facility] Comment on above: Performed By: #### C BCAD, MG, URIC, LIPD, PHOS, CMP, DBIL #### [facility] [address], [place] [id number] Neutrophils (Bld) [#/Vol] 4.7 10*3/uL Normal 1.5-7.8 [facility] Comment on above: Performed By: #### C BCAD, MG, URIC, LIPD, PHOS, CMP, DBIL #### [facility] [address], [place] [id number] Neutrophils/100 WBC (Bld) 71.4 % Normal [facility] Comment on above: Performed By: #### C BCAD, MG, URIC, LIPD, PHOS, CMP, DBIL #### [facility] [address], [place] [id number] Platelet mean volume (Bld) [Entitic vol] 10.70 fL Normal 7.50-12.50 [facility] Comment on above: Performed By: #### C BCAD, MG, URIC, LIPD, PHOS, CMP, DBIL #### [facility] [address], [place] [id number] Platelets (Bld) [#/Vol] 261 10*3/uL Normal 140-400 [facility] Comment on above: Performed By: #### C BCAD, MG, URIC, LIPD, PHOS, CMP, DBIL #### [facility] [address], [place] [id number] RBC (Bld) [#/Vol] 5.57 10*6/uL Normal 4.20-5.80 [facility] Comment on above: Performed By: #### C BCAD, MG, URIC, LIPD, PHOS, CMP, DBIL #### [facility] [address] [id number] RDW-SD 49.2 fL Normal 37.0-50.0 [facility] Comment on above: Performed By: #### C BCAD, MG, URIC, LIPD, PHOS, CMP, DBIL #### [facility] [address], [place] [id number] WBC (Bld) [#/Vol] 6.6 10*3/uL Normal 3.8-11.0 [place] [facility] Comment on above: Performed By: #### C BCAD, MG, URIC, LIPD, PHOS, CMP, DBIL #### [facility] [address], [place] [id number] Comprehensive Metabolic Pane [facility] 04-30-2021 Albumin [Mass/Vol] 4.9 g/dL Normal 3.6-5.1 [place] [facility] Comment on above: Performed By: #### C BCAD, MG, URIC, LIPD, PHOS, CMP, DBIL #### [facility] [address], [place] [id number] Albumin/Globulin [Mass ratio] 2.6 {ratio} High 1.0-2.5 [facility] Comment on above: Performed By: #### C BCAD, MG, URIC, LIPD, PHOS, CMP, DBIL #### [facility] [address], [place] [id number] ALP [Catalytic activity/Vol] 89 U/L Normal 40-129 [facility] Comment on above: Performed By: #### C BCAD, MG, URIC, LIPD, PHOS, CMP, DBIL #### [facility] [address], [place] [id number] ALT [Catalytic activity/Vol] 30 U/L Normal 9-46 [facility] Comment on above: Result Comment: 03/17 Female reference range changed. Performed By: #### C BCAD, MG, URIC, LIPD, PHOS, CMP, DBIL #### [facility] [address], [place] [id number] Anion gap [Moles/Vol] 20 mmol/L Normal 12-20 [facility] Comment on above: Result Comment: Effe ctive 04/22/2019 reference range changed. Performed By: #### C BCAD, MG, URIC, LIPD, PHOS, CMP, DBIL #### [facility] [address], [place] [id number] AST [Catalytic activity/Vol] 23 U/L Normal 10-40 [facility] Comment on above: Performed By: #### C BCAD, MG, URIC, LIPD, PHOS, CMP, DBIL #### [facility] [address], [place] [id number] Bilirubin [Mass/Vol] 0.52 mg/dL Normal 0.30-1.20 [facility] Comment on above: Performed By: #### C BCAD, MG, URIC, LIPD, PHOS, CMP, DBIL #### [facility] [address], [place] [id number] BUN/CREA 18 Ratio Normal 6-22 [facility] Comment on above: Performed By: #### C BCAD, MG, URIC, LIPD, PHOS, CMP, DBIL #### [facility] [address], [place] [id number] Calcium [Mass/Vol] 10.1 mg/dL Normal 8.6-10.2 [facility] Comment on above: Performed By: #### C BCAD, MG, URIC, LIPD, PHOS, CMP, DBIL #### [facility] [address], [place] [id number] Chloride [Moles/Vol] 102 mmol/L Normal 98-107 [facility] Comment on above: Performed By: #### C BCAD, MG, URIC, LIPD, PHOS, CMP, DBIL #### [facility] [address], [place] [id number] CO2 [Moles/Vol] 23 mmol/L Normal 20-31 [facility] Comment on above: Performed By: #### C BCAD, MG, URIC, LIPD, PHOS, CMP, DBIL #### [facility] [address], [place] [id number] Creatinine [Mass/Vol] 1.3 mg/dL Normal 0.7-1.4 [facility] Comment on above: Performed By: #### C BCAD, MG, URIC, LIPD, PHOS, CMP, DBIL #### [facility] [address], [place] [id number] eGFRAA 71 mL/min/1.73m2 Normal >60 [facility] Comment on above: Performed By: #### C BCAD, MG, URIC, LIPD, PHOS, CMP, DBIL #### [facility] [address], [place] [id number] eGFRNAA 59 mL/min/1.73m2 Low >60 [facility] Comment on above: Performed By: #### C BCAD, MG, URIC, LIPD, PHOS, CMP, DBIL #### [facility] [address], [place] [id number] Globulin (S) [Mass/Vol] 1.9 g/dL Normal 1.9-3.7 [facility] Comment on above: Performed By: #### C BCAD, MG, URIC, LIPD, PHOS, CMP, DBIL #### [facility] [address], [place] [id number] Glucose [Mass/Vol] 128 mg/dL High 65-99 [place] [facility] Comment on above: Result Comment: For FASTING Glucose --- ADA reference ranges: Normal 65-99 mg/dl Prediabetes 100-125 Diabetes >/= 126 Performed By: #### C BCAD, MG, URIC, LIPD, PHOS, CMP, DBIL #### [facility] [address], [place] [id number] Potassium [Moles/Vol] 4.4 mmol/L Normal 3.5-5.5 [facility] Comment on above: Performed By: #### C BCAD, MG, URIC, LIPD, PHOS, CMP, DBIL #### [facility] [address], [place] [id number] Protein [Mass/Vol] 6.8 g/dL Normal 6.1-8.1 [place] [facility] Comment on above: Performed By: #### C BCAD, MG, URIC, LIPD, PHOS, CMP, DBIL #### [facility] [address], [place] [id number] Sodium [Moles/Vol] 140 mmol/L Normal 135-146 [facility] Comment on above: Performed By: #### C BCAD, MG, URIC, LIPD, PHOS, CMP, DBIL #### [facility] [address], [place] [id number] Urea nitrogen [Mass/Vol] 23 mg/dL Normal 7-25 [facility] Comment on above: Performed By: #### C BCAD, MG, URIC, LIPD, PHOS, CMP, DBIL #### [facility] [address], [place] [id number] Lipid Panelon 04-30-2021 Cholesterol [Mass/Vol] 123 mg/dL Low 125-200 [facility] Comment on above: Result Comment: Low risk < 200mg/dL Borderline risk 201-239 mg/dl High risk > or equal to 240 Performed By: #### C BCAD, MG, URIC, LIPD, PHOS, CMP, DBIL #### [facility] [address], [place] [id number] Cholesterol in HDL [Mass/Vol] 41 mg/dL Normal >40 [facility] Comment on above: Result Comment: High Cardiovascular Risk HDL <40 mg/dL Low Cardiovascular Risk HDL > or equal to 60 mg/dl Performed By: #### C BCAD, MG, URIC, LIPD, PHOS, CMP, DBIL #### [facility] [address], [place] [id number] Cholesterol in LDL [Mass/Vol] 51 mg/dL Normal [facility] Comment on above: Result Comment: LDL ATP III CLASSIFICATION LDL less than 100 mg/dl Optimal LDL 100-129 mg/dl Near or above optimal LDL 130-159 Borderline high LDL 160-189 High LDL greater than 189 mg/dl Very High Performed By: #### C BCAD, MG, URIC, LIPD, PHOS, CMP, DBIL #### [facility] [address], [place] [id number] Cholesterol in VLDL [Mass/Vol] 31 mg/dL Normal [facility] Comment on above: Performed By: #### C BCAD, MG, URIC, LIPD, PHOS, CMP, DBIL #### [facility] [address], [place] [id number] Cholesterol.total/C holesterol in HDL [Mass ratio] 3 {ratio} Normal [facility] Comment on above: Performed By: #### C BCAD, MG, URIC, LIPD, PHOS, CMP, DBIL #### [facility] [address], [place] [id number] Triglyceride [Mass/Vol] 156 mg/dL High 30-150 [facility] Comment on above: Result Comment: TRIG ATPIII CLASSIFICATIONS TRIG less than 150 mg/dl Normal TRIG 150-199 mg/dl Borderline High TRIG 200-500 mg/dl High TRIG greather than 500 mg/dl Very High Performed By: #### C BCAD, MG, URIC, LIPD, PHOS, CMP, DBIL #### [facility] [address], [place] [id number] Magnesiumon 04-30-2021 Magnesium [Mass/Vol] 2.0 mg/dL Normal 1.5-2.3 [facility] Comment on above: Performed By: #### C BCAD, MG, URIC, LIPD, PHOS, CMP, DBIL #### [facility] [address], [place] [id number] Phosphoruson 04-30-2021 Phosphate [Mass/Vol] 4.2 mg/dL Normal 2.2-4.4 [facility] Comment on above: Performed By: #### C BCAD, MG, URIC, LIPD, PHOS, CMP, DBIL #### [facility] [address], [place] [id number] Uric Acidon 04-30-2021 URIC 5.3 mg/dL Normal 4.0-8.0 [facility] Comment on above: Result Comment: Refe rence range change 03/03/2017. Prior reference range F 2.4-5.7mg/dL. M 3.4-7.0 mg/dL. 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 History of Present [...] he saw his regular [place] by his propagation worker to agreed with and endorsed the care we rendered. The device was interrogated it in their office and it appears to be functioning appropriately. Because of all the above he is pleased with his care. He'll be following up henceforth with the Gunn propagation worker and we advised him were always happy [...] transplantation History of Pacemaker insertion History of [place] tooth extraction Current Meds Medication NameInstruction Aspirin [...] Vital Signs Recorded: 23Apr2021 05:40PMRecorded: 23Apr2021 03:22PM [id number], RUE, Pgfdpxn968, RUE, Sitting Yrlcbtmwx92, RUE, Pvyebah47, RUE, Sitting Heart Rate61, R Brachial Artery Height5 ft 11 in Uszsow895 lb BMI Tasbfgdjws14.57 kg/m2 BSA Calculated2.16 Tobacco Useb) No Fall [...] abdomen non-tender (more content not included)... Normal [facility] Tobacco Screening.on 022 Fall risk assessment c) Not medically indicated -[facility] y [address] DO Work Phone: Tobacco use status CP b) No -[facility] y 250 DO Work Phone: Bilirubin, Directon 03-29-20 21 DBIL <0.2 Normal [facility] Comment on above: Result Comment: Refe rence range change 03/03/2017. Prior reference range 0.1-0.3 mg/dL. Performed By: #### C BCAD, MG, URIC, LIPD, PHOS, CMP, DBIL #### [facility] [address], [place] [id number] Complete Blood Count with Au to Diffon 03-29-2021 Basophils (Bld) [#/Vol] 0.06 10*3/uL Normal 0.00-0.20 [facility] Comment on above: Performed By: #### C BCAD, MG, URIC, LIPD, PHOS, CMP, DBIL #### [facility] [address], [place] [id number] Basophils/100 WBC (Bld) 0.7 % Normal [facility] Comment on above: Performed By: #### C BCAD, MG, URIC, LIPD, PHOS, CMP, DBIL #### [facility] [address], [place] [id number] Eosinophils (Bld) [#/Vol] 0.13 10*3/uL Normal 0.02-0.50 [facility] Comment on above: Performed By: #### C BCAD, MG, URIC, LIPD, PHOS, CMP, DBIL #### [facility] [address], [place] [id number] Eosinophils/100 WBC (Bld) 1.6 % Normal [facility] Comment on above: Performed By: #### C BCAD, MG, URIC, LIPD, PHOS, CMP, DBIL #### [facility] [address], [place] [id number] Erythrocyte distribution width (RBC) [Ratio] 14.9 % Normal 11.0-15.0 [facility] Comment on above: Performed By: #### C BCAD, MG, URIC, LIPD, PHOS, CMP, DBIL #### [facility] [address], [place] [id number] Hematocrit (Bld) [Volume fraction] 51.2 % High 38.5-50.0 [facility] Comment on above: Performed By: #### C BCAD, MG, URIC, LIPD, PHOS, CMP, DBIL #### [facility] [address], [place] [id number] Hemoglobin (Bld) [Mass/Vol] 16.0 g/dL Normal 13.0-17.1 [facility] Comment on above: Performed By: #### C BCAD, MG, URIC, LIPD, PHOS, CMP, DBIL #### [facility] [address], [place] [id number] Lymphocytes (Bld) [#/Vol] 0.9 10*3/uL Normal 0.9-3.9 [facility] Comment on above: Performed By: #### C BCAD, MG, URIC, LIPD, PHOS, CMP, DBIL #### [facility] [address], [place] [id number] Lymphocytes/100 WBC (Bld) 10.7 % Normal [facility] Comment on above: Performed By: #### C BCAD, MG, URIC, LIPD, PHOS, CMP, DBIL #### [facility] [address], [place] [id number] MCH (RBC) [Entitic mass] 28.9 pg Normal 27.0-33.0 [facility] Comment on above: Performed By: #### C BCAD, MG, URIC, LIPD, PHOS, CMP, DBIL #### [facility] [address], [place] [id number] MCHC (RBC) [Mass/Vol] 31.3 g/dL Low 32.0-36.0 [facility] Comment on above: Performed By: #### C BCAD, MG, URIC, LIPD, PHOS, CMP, DBIL #### [facility] [address], [place] [id number] MCV (RBC) [Entitic vol] 92 fL Normal 80-100 [facility] Comment on above: Performed By: #### C BCAD, MG, URIC, LIPD, PHOS, CMP, DBIL #### [facility] [address], [place] [id number] Monocytes (Bld) [#/Vol] 0.7 10*3/uL Normal 0.2-0.9 [facility] Comment on above: Performed By: #### C BCAD, MG, URIC, LIPD, PHOS, CMP, DBIL #### [facility] [address], [place] [id number] Monocytes/100 WBC (Bld) 8.1 % Normal [facility] Comment on above: Performed By: #### C BCAD, MG, URIC, LIPD, PHOS, CMP, DBIL #### [facility] [address], [place] [id number] Neutrophils (Bld) [#/Vol] 6.4 10*3/uL Normal 1.5-7.8 [facility] Comment on above: Performed By: #### C BCAD, MG, URIC, LIPD, PHOS, CMP, DBIL #### [facility] [address], [place] [id number] Neutrophils/100 WBC (Bld) 78.5 % Normal [facility] Comment on above: Performed By: #### C BCAD, MG, URIC, LIPD, PHOS, CMP, DBIL #### [facility] [address], [place] [id number] Platelet mean volume (Bld) [Entitic vol] 11.20 fL Normal 7.50-12.50 [facility] Comment on above: Performed By: #### C BCAD, MG, URIC, LIPD, PHOS, CMP, DBIL #### [facility] [address], [place] [id number] Platelets (Bld) [#/Vol] 295 10*3/uL Normal 140-400 [facility] Comment on above: Performed By: #### C BCAD, MG, URIC, LIPD, PHOS, CMP, DBIL #### [facility] [address], [place] [id number] RBC (Bld) [#/Vol] 5.54 10*6/uL Normal 4.20-5.80 [facility] Comment on above: Performed By: #### C BCAD, MG, URIC, LIPD, PHOS, CMP, DBIL #### [facility] [address], [place] [id number] RDW-SD 51.0 fL High 37.0-50.0 [facility] Comment on above: Performed By: #### C BCAD, MG, URIC, LIPD, PHOS, CMP, DBIL #### [facility] [address], [place] [id number] WBC (Bld) [#/Vol] 8.2 10*3/uL Normal 3.8-11.0 [place] [facility] Comment on above: Performed By: #### C BCAD, MG, URIC, LIPD, PHOS, CMP, DBIL #### [facility] [address], [place] [id number] Comprehensive Metabolic Pane [facility] 03-29-2021 Albumin [Mass/Vol] 4.9 g/dL Normal 3.6-5.1 [place] [facility] Comment on above: Performed By: #### C BCAD, MG, URIC, LIPD, PHOS, CMP, DBIL #### [facility] [address], [place] [id number] Albumin/Globulin [Mass ratio] 2.5 {ratio} Normal 1.0-2.5 [facility] Comment on above: Performed By: #### C BCAD, MG, URIC, LIPD, PHOS, CMP, DBIL #### [facility] [address], [place] [id number] ALP [Catalytic activity/Vol] 86 U/L Normal 40-129 [facility] Comment on above: Performed By: #### C BCAD, MG, URIC, LIPD, PHOS, CMP, DBIL #### [facility] [address], [place] [id number] ALT [Catalytic activity/Vol] 33 U/L Normal 9-46 [facility] Comment on above: Result Comment: 03/17 Female reference range changed. Performed By: #### C BCAD, MG, URIC, LIPD, PHOS, CMP, DBIL #### [facility] [address], [place] [id number] Anion gap [Moles/Vol] 18 mmol/L Normal 12-20 [facility] Comment on above: Result Comment: Effe ctive 04/22/2019 reference range changed. Performed By: #### C BCAD, MG, URIC, LIPD, PHOS, CMP, DBIL #### [facility] [address], [place] [id number] AST [Catalytic activity/Vol] 27 U/L Normal 10-40 [facility] Comment on above: Performed By: #### C BCAD, MG, URIC, LIPD, PHOS, CMP, DBIL #### [facility] [address], [place] [id number] Bilirubin [Mass/Vol] 0.38 mg/dL Normal 0.30-1.20 [facility] Comment on above: Performed By: #### C BCAD, MG, URIC, LIPD, PHOS, CMP, DBIL #### [facility] [address], [place] [id number] BUN/CREA 12 Ratio Normal 6-22 [facility] Comment on above: Performed By: #### C BCAD, MG, URIC, LIPD, PHOS, CMP, DBIL #### [facility] [address], [place] [id number] Calcium [Mass/Vol] 10.3 mg/dL High 8.6-10.2 [facility] Comment on above: Performed By: #### C BCAD, MG, URIC, LIPD, PHOS, CMP, DBIL #### [facility] [address], [place] [id number] Chloride [Moles/Vol] 105 mmol/L Normal 98-107 [facility] Comment on above: Performed By: #### C BCAD, MG, URIC, LIPD, PHOS, CMP, DBIL #### [facility] [address], [place] [id number] CO2 [Moles/Vol] 23 mmol/L Normal 20-31 [facility] Comment on above: Performed By: #### C BCAD, MG, URIC, LIPD, PHOS, CMP, DBIL #### [facility] [address], [place] [id number] Creatinine [Mass/Vol] 1.2 mg/dL Normal 0.7-1.4 [facility] Comment on above: Performed By: #### C BCAD, MG, URIC, LIPD, PHOS, CMP, DBIL #### [facility] [address], [place] [id number] eGFRAA 79 mL/min/1.73m2 Normal >60 [facility] Comment on above: Performed By: #### C BCAD, MG, URIC, LIPD, PHOS, CMP, DBIL #### [facility] [address], [place] [id number] eGFRNAA 65 mL/min/1.73m2 Normal >60 [facility] Comment on above: Performed By: #### C BCAD, MG, URIC, LIPD, PHOS, CMP, DBIL #### [facility] [address], [place] [id number] Globulin (S) [Mass/Vol] 2.0 g/dL Normal 1.9-3.7 [facility] Comment on above: Performed By: #### C BCAD, MG, URIC, LIPD, PHOS, CMP, DBIL #### [facility] [address], [place] [id number] Glucose [Mass/Vol] 125 mg/dL High 65-99 [facility] Comment on above: Result Comment: For FASTING Glucose --- ADA reference ranges: Normal 65-99 mg/dl Prediabetes 100-125 Diabetes >/= 126 Performed By: #### C BCAD, MG, URIC, LIPD, PHOS, CMP, DBIL #### [facility] [address], [place] [id number] Potassium [Moles/Vol] 4.7 mmol/L Normal 3.5-5.5 [facility] Comment on above: Performed By: #### C BCAD, MG, URIC, LIPD, PHOS, CMP, DBIL #### [facility] [address], [place] [id number] Protein [Mass/Vol] 6.9 g/dL Normal 6.1-8.1 [place] [facility] Comment on above: Performed By: #### C BCAD, MG, URIC, LIPD, PHOS, CMP, DBIL #### [facility] [address], [place] [id number] Sodium [Moles/Vol] 141 mmol/L Normal 135-146 [facility] Comment on above: Performed By: #### C BCAD, MG, URIC, LIPD, PHOS, CMP, DBIL #### [facility] [address], [place] [id number] Urea nitrogen [Mass/Vol] 14 mg/dL Normal 7-25 [facility] Comment on above: Performed By: #### C BCAD, MG, URIC, LIPD, PHOS, CMP, DBIL #### [facility] [address], [place] [id number] Lipid Panelon 03-29-2021 Cholesterol [Mass/Vol] 123 mg/dL Low 125-200 [facility] Comment on above: Result Comment: Low risk < 200mg/dL Borderline risk 201-239 mg/dl High risk > or equal to 240 Performed By: #### C BCAD, MG, URIC, LIPD, PHOS, CMP, DBIL #### [facility] [address], [place] [id number] Cholesterol in HDL [Mass/Vol] 42 mg/dL Normal >40 [facility] Comment on above: Result Comment: High Cardiovascular Risk HDL <40 mg/dL Low Cardiovascular Risk HDL > or equal to 60 mg/dl Performed By: #### C BCAD, MG, URIC, LIPD, PHOS, CMP, DBIL #### [facility] [address] [facility] [place] [id number] Cholesterol in LDL [Mass/Vol] 58 mg/dL Normal [facility] Comment on above: Result Comment: LDL ATP III CLASSIFICATION LDL less than 100 mg/dl Optimal LDL 100-129 mg/dl Near or above optimal LDL 130-159 Borderline high LDL 160-189 High LDL greater than 189 mg/dl Very High Performed By: #### C BCAD, MG, URIC, LIPD, PHOS, CMP, DBIL #### [facility] [address] [facility] [place] [place] [id number] Cholesterol in VLDL [Mass/Vol] 23 mg/dL Normal [facility] Comment on above: Performed By: #### C BCAD, MG, URIC, LIPD, PHOS, CMP, DBIL #### [facility] [address] [place], [place] [id number] Cholesterol.total/C holesterol in HDL [Mass ratio] 3 {ratio} Normal [facility] Comment on above: Performed By: #### C BCAD, MG, URIC, LIPD, PHOS, CMP, DBIL #### [facility] [address], [place] [id number] Triglyceride [Mass/Vol] 113 mg/dL Normal 30-150 [facility] Comment on above: Result Comment: TRIG ATPIII CLASSIFICATIONS TRIG less than 150 mg/dl Normal TRIG 150-199 mg/dl Borderline High TRIG 200-500 mg/dl High TRIG greather than 500 mg/dl Very High Performed By: #### C BCAD, MG, URIC, LIPD, PHOS, CMP, DBIL #### [facility] [address] [facility] [place] [id number] Magnesiumon 03-29-2021 Magnesium [Mass/Vol] 1.9 mg/dL Normal 1.5-2.3 [facility] Comment on above: Performed By: #### C BCAD, MG, URIC, LIPD, PHOS, CMP, DBIL #### [facility] [address] [place] [id number] Phosphoruson 03-29-2021 Phosphate [Mass/Vol] 4.1 mg/dL Normal 2.2-4.4 [facility] Comment on above: Performed By: #### C BCAD, MG, URIC, LIPD, PHOS, CMP, DBIL #### [facility] [address], [place] [id number] Uric Acidon 03-29-2021 URIC 7.5 mg/dL Normal 4.0-8.0 [facility] Comment on above: Result Comment: Refe rence range change 03/03/2017. Prior reference range F 2.4-5.7mg/dL. M 3.4-7.0 mg/dL. Performed By: #### C BCAD, MG, URIC, LIPD, PHOS, CMP, DBIL #### [facility] [address] [place] [id number] [facility] Son 12-24-2020 [facility] Department of Radiology [address] [place] [id number] == Patient Name: VISHAL DUKE : 1960 Sex: M Age: Race: White Pt. Location: [facility] Patient Status: D Ordered Date: 12/24/2020 3:50:00 PM Completed Date: 12/24/2020 03:48 PM Requesting Provider: ZULY VERDUZCO Attending Provider: Report Copy To: Signs & Symptoms: U07.1 COVID-19 I10 History: [place] Comments: covid Exam: [facility] [address] [facility] == CCC CHEST 2 VWS 12/24/2020 3:48 PM CLINICAL [...] process. Electronically signed: Giovana Garrido. Transcribed by: [email or web address], User Resident: Electronically Signed by: GIOVANA GARRIDO @ 12/25/2020 12:24 PM Normal [facility] Comment on above: Order Comment: No: D o not add to previous draw CV'D BY [facility] AT 1240 Glucose Poct Glucometerson 0 12-12-2020 Commemt1 Glu2: Cleaned Meter Normal [facility] Comment on above: Result Comment: PERF ORMED BY: [place] [address] PATHOLOGIST [employer] SHYANN OLIVIER M.D. Performed By: #### B MP, HS TROP, CBC, PT, PTT, BNP #### [facility] [address] [place] [address] Glucose [Mass/Vol] 147 mg/dL Normal [facility] Comment on above: Result Comment: [place] om Glucose Reference Range is dependent on time and content of last meal. Glucose of more than 200 mg/dL in a nonstressed, ambulatory subject supports the diagnosis of Diabetes Mellitus. Performed By: #### B MP, HS TROP, CBC, PT, PTT, BNP #### [facility] [address] [place] [address] [place] Glucose [Mass/Vol] 107 mg/dL Normal [facility] Comment on above: Result Comment: [place] om Glucose Reference Range is dependent on time and content of last meal. Glucose of more than 200 mg/dL in a nonstressed, ambulatory subject supports the diagnosis of Diabetes Mellitus. PERFORMED BY: [place] [id number] PATHOLOGIST [employer] SHYANN OLIVIER M.D. Performed By: #### B MP, HS TROP, CBC, PT, PTT, BNP #### [place] [id number] [facility] XR chest 2V*on 12-12-2020 XR chest 2V* [facility] [place] [address] [place] [address] XRay Report Signed Patient: Vishal Duke MR#: [id number] : 1960 Acct:[id number] Age/Sex: 59 / M ADM Date: 12/08/20 Loc: Room: [address] [place] [address] Type: ADM IN Attending Dr: Leonardo Storey [...] Farah Jr., M.D.12/12/2020 9:15 AM Dictation Location: [place] [address] Transcribed By: [facility] [facility] 12/12/20914 Dictated By: Faraz Farah Jr, MD 12/12/20908 Signed By: 12/12/20914 Normal [facility] Basic Metabolic Panelon 08-2 Calcium [Mass/Vol] 8.9 mg/dL Normal 8.2-10.2 [facility] Comment on above: Performed By: #### B MP, HS TROP, CBC, PT, PTT, BNP #### [address] Chloride [Moles/Vol] 105 mmol/L Normal 95-114 [facility] Comment on above: Performed By: #### B MP, HS TROP, CBC, PT, PTT, BNP #### [address] CO2 [Moles/Vol] 22.1 mmol/L Normal 22.0-30.0 [facility] Comment on above: Performed By: #### B MP, HS TROP, CBC, PT, PTT, BNP #### [address] Creatinine [Mass/Vol] 1.08 mg/dL Normal 0.64-1.27 [facility] Comment on above: Performed By: #### B MP, HS TROP, CBC, PT, PTT, BNP #### [address] Creatinine Clr Calc Pharmacy 78.44 [facility] Comment on above: Result Comment: PERF ORMED BY: [place] [address] PATHOLOGIST [employer]LE MAKER SHYANN OLIVIER M.D. Performed By: #### B MP, HS TROP, CBC, PT, PTT, BNP #### [address] Estimated GFR ( Nata > 60 [facility] Comment on above: Result Comment: GFR estimated reference range: According to KDOQI guidelines, <60 ml/min/1.73m2 is sufficient to diagnose a patient with chronic kidney disease. Performed By: #### B MP, HS TROP, CBC, PT, PTT, BNP #### [address] Estimated GFR (Non- Am > 60 [facility] Comment on above: Performed By: #### B MP, HS TROP, CBC, PT, PTT, BNP #### [address] Glucose [Mass/Vol] 138 mg/dL High 70-100 [facility] Comment on above: Result Comment: [place] Glucose Reference Range is dependent on time and content of last meal. Glucose of more than 200 mg/dL in a nonstressed, ambulatory subject supports the diagnosis of Diabetes Mellitus. ADA recommended reference range Performed By: #### B MP, HS TROP, CBC, PT, PTT, BNP #### [address] Potassium [Moles/Vol] 4.2 mmol/L Normal 3.5-5.1 [facility] Comment on above: Performed By: #### B MP, HS TROP, CBC, PT, PTT, BNP #### [address] Sodium [Moles/Vol] 138 mmol/L Normal 136-146 [facility] Comment on above: Performed By: #### B MP, HS TROP, CBC, PT, PTT, BNP #### [address] Urea nitrogen [Mass/Vol] 11 mg/dL Normal 9-23 [facility] Comment on above: Performed By: #### B MP, HS TROP, CBC, PT, PTT, BNP #### [address] Complete Blood Count Auto Di ffon 12-11-2020 Basophils (Bld) [#/Vol] 0.1 10*3/uL Normal 0.0-0.2 [facility] Comment on above: Result Comment: PERF ORMED BY: [place] [address] PATHOLOGIST [employer] MAKER SHYANN OLIVIER M.D. Performed By: #### B MP, HS TROP, CBC, PT, PTT, BNP #### [address] Basophils/100 WBC (Bld) 0.7 % Normal . [facility] Comment on above: Performed By: #### B MP, HS TROP, CBC, PT, PTT, BNP #### [address] Eosinophils (Bld) [#/Vol] 0.1 10*3/uL Normal 0.0-0.45 [facility] Comment on above: Performed By: #### B MP, HS TROP, CBC, PT, PTT, BNP #### [address] Eosinophils/100 WBC (Bld) 1.3 % Normal . [facility] Comment on above: Performed By: #### B MP, HS TROP, CBC, PT, PTT, BNP #### [address] Erythrocyte distribution width (RBC) [Ratio] 15.2 % High 12.0-14.8 [facility] Comment on above: Performed By: #### B MP, HS TROP, CBC, PT, PTT, BNP #### [address] Hematocrit (Bld) [Volume fraction] 38.0 % Low 38.8-50.0 [facility] Comment on above: Performed By: #### B MP, HS TROP, CBC, PT, PTT, BNP #### [address] Hemoglobin (Bld) [Mass/Vol] 13.0 g/dL Normal 13.0-17.0 [facility] Comment on above: Performed By: #### B MP, HS TROP, CBC, PT, PTT, BNP #### [address] Lymphocytes (Bld) [#/Vol] 0.7 10*3/uL Low 1.00-4.8 [facility] Comment on above: Performed By: #### B MP, HS TROP, CBC, PT, PTT, BNP #### [address] Lymphocytes/100 WBC (Bld) 7.7 % Normal . [facility] Comment on above: Performed By: #### B MP, HS TROP, CBC, PT, PTT, BNP #### [address] MCH (RBC) [Entitic mass] 31.5 pg Normal 27.5-35.2 [facility] Comment on above: Performed By: #### B MP, HS TROP, CBC, PT, PTT, BNP #### [address] MCV (RBC) [Entitic vol] 91.7 fL Normal 83.5-101 [facility] Comment on above: Performed By: #### B MP, HS TROP, CBC, PT, PTT, BNP #### [address] Mean Corpuscular HGB Conc 34.3 g/dL Normal 32.5-35.6 [facility] Comment on above: Performed By: #### B MP, HS TROP, CBC, PT, PTT, BNP #### [address] Monocytes (Bld) [#/Vol] 0.9 10*3/uL High 0.0-0.8 [facility] Comment on above: Performed By: #### B MP, HS TROP, CBC, PT, PTT, BNP #### [address] Monocytes/100 WBC (Bld) 9.4 % Normal . [facility] Comment on above: Performed By: #### B MP, HS TROP, CBC, PT, PTT, BNP #### [address] Neutrophils (Bld) [#/Vol] 7.5 10*3/uL Normal 1.8-7.7 [facility] Comment on above: Performed By: #### B MP, HS TROP, CBC, PT, PTT, BNP #### [address] Neutrophils/100 WBC (Bld) 80.9 % Normal . [facility] Comment on above: Performed By: #### B MP, HS TROP, CBC, PT, PTT, BNP #### [address] Nucleated RBC/100 WBC (Bld) [Ratio] 0.0 % Normal 0-0.5 [facility] Comment on above: Performed By: #### B MP, HS TROP, CBC, PT, PTT, BNP #### [facility] [address] Platelet mean volume (Bld) [Entitic vol] 7.6 fL Normal 6.6-10.1 [facility] Comment on above: Performed By: #### B MP, HS TROP, CBC, PT, PTT, BNP #### [address] Platelets (Bld) [#/Vol] 385 10*3/uL Normal 150-450 [facility] Comment on above: Performed By: #### B MP, HS TROP, CBC, PT, PTT, BNP #### [address] RBC (Bld) [#/Vol] 4.14 10*6/uL Normal 3.90-5.60 [facility] Comment on above: Performed By: #### B MP, HS TROP, CBC, PT, PTT, BNP #### [address] WBC (Bld) [#/Vol] 9.3 10*3/uL Normal 4.5-11.0 [facility] Comment on above: Performed By: #### B MP, HS TROP, CBC, PT, PTT, BNP #### [address] Glucose Poct Glucometerson 0 12-11-2020 Glucose [Mass/Vol] 129 mg/dL Normal [facility] Comment on above: Result Comment: [facility] Glucose Reference Range is dependent on time and content of last meal. Glucose of more than 200 mg/dL in a nonstressed, ambulatory subject supports the diagnosis of Diabetes Mellitus. PERFORMED BY: [place] [address] PATHOLOGIST [employer]KER SHYANN OLIVIER M.D. Performed By: #### B MP, HS TROP, CBC, PT, PTT, BNP #### [address] Partial Thromboplastin Timeo n 12-11-2020 aPTT Coag (Bld) [Time] 32.7 s Normal 25.1-36.5 [facility] Comment on above: Result Comment: PERF ORMED BY: [place] [address] PATHOLOGIST [employer] SHYANN OLIVIER M.D. Performed By: #### B MP, HS TROP, CBC, PT, PTT, BNP #### [address] Prothrombin Time INRon 12-11 INR Coag (PPP) [Relative time] 1.2 {INR} Normal [facility] Comment on above: Result Comment: INR Therapeutic [...] HS TROP, CBC, PT, PTT, BNP #### [address] PT Coag (PPP) [Time] 13.8 s High 9.0-12.9 [facility] Comment on above: Performed By: #### B MP, HS TROP, CBC, PT, PTT, BNP #### [place] [address] [place] XR chest 1V portableon 12-11 XR chest 1V portable [facility] Main [place] [address] [place] [address] XRay Report Signed Patient: Vishal Duke MR#: [id number] : 1960 Acct:[id number] Age/Sex: 59 / M ADM Date: 12/08/20 Loc: Room: [address] [place] [address] Type: ADM IN Attending Dr: Leonardo Storey [...] Biju Ag M.D.12/11/2020 12:40 PM Dictation Location: [place] [address] Transcribed By: [facility] 12/11/20 1240 Dictated By: Biju Ag MD 12/11/20 1236 Signed By: 12/11/20 1240 Normal [facility] Complete Blood Count Auto Di ffon 12-10-2020 Basophils (Bld) [#/Vol] 0.0 10*3/uL Normal 0.0-0.2 [facility] Comment on above: Result Comment: PERF ORMED BY: [place] [address] PATHOLOGIST [employer]KER SHYANN OLIVIER M.D. Performed By: #### B MP, HS TROP, CBC, PT, PTT, BNP #### [facility] [address] [place] [address] [place] Basophils/100 WBC (Bld) 0.3 % Normal . [facility] Comment on above: Performed By: #### B MP, HS TROP, CBC, PT, PTT, BNP #### [facility] [address] [place] [address] [place] Eosinophils (Bld) [#/Vol] 0.1 10*3/uL Normal 0.0-0.45 [facility] Comment on above: Performed By: #### B MP, HS TROP, CBC, PT, PTT, BNP #### [address] Eosinophils/100 WBC (Bld) 0.5 % Normal . [facility] Comment on above: Performed By: #### B MP, HS TROP, CBC, PT, PTT, BNP #### [address] Erythrocyte distribution width (RBC) [Ratio] 15.1 % High 12.0-14.8 [facility] Comment on above: Performed By: #### B MP, HS TROP, CBC, PT, PTT, BNP #### [address] Hematocrit (Bld) [Volume fraction] 39.5 % Normal 38.8-50.0 [facility] Comment on above: Performed By: #### B MP, HS TROP, CBC, PT, PTT, BNP #### [address] Hemoglobin (Bld) [Mass/Vol] 13.1 g/dL Normal 13.0-17.0 [facility] Comment on above: Performed By: #### B MP, HS TROP, CBC, PT, PTT, BNP #### [address] Lymphocytes (Bld) [#/Vol] 0.5 10*3/uL Low 1.00-4.8 [facility] Comment on above: Performed By: #### B MP, HS TROP, CBC, PT, PTT, BNP #### [address] Lymphocytes/100 WBC (Bld) 4.0 % Normal . [facility] Comment on above: Performed By: #### B MP, HS TROP, CBC, PT, PTT, BNP #### [address] MCH (RBC) [Entitic mass] 31.2 pg Normal 27.5-35.2 [facility] Comment on above: Performed By: #### B MP, HS TROP, CBC, PT, PTT, BNP #### [address] MCV (RBC) [Entitic vol] 94.1 fL Normal 83.5-101 [facility] Comment on above: Performed By: #### B MP, HS TROP, CBC, PT, PTT, BNP #### [address] Mean Corpuscular HGB Conc 33.2 g/dL Normal 32.5-35.6 [facility] Comment on above: Performed By: #### B MP, HS TROP, CBC, PT, PTT, BNP #### [address] Monocytes (Bld) [#/Vol] 0.8 10*3/uL Normal 0.0-0.8 [facility] Comment on above: Performed By: #### B MP, HS TROP, CBC, PT, PTT, BNP #### [address] Monocytes/100 WBC (Bld) 6.6 % Normal . [facility] Comment on above: Performed By: #### B MP, HS TROP, CBC, PT, PTT, BNP #### [address] Neutrophils (Bld) [#/Vol] 10.5 10*3/uL High 1.8-7.7 [facility] Comment on above: Performed By: #### B MP, HS TROP, CBC, PT, PTT, BNP #### [address] Neutrophils/100 WBC (Bld) 88.6 % Normal . [facility] Comment on above: Performed By: #### B MP, HS TROP, CBC, PT, PTT, BNP #### [address] Nucleated RBC/100 WBC (Bld) [Ratio] 0.1 % Normal 0-0.5 [facility] Comment on above: Performed By: #### B MP, HS TROP, CBC, PT, PTT, BNP #### [address] Platelet mean volume (Bld) [Entitic vol] 8.1 fL Normal 6.6-10.1 [facility] Comment on above: Performed By: #### B MP, HS TROP, CBC, PT, PTT, BNP #### [address] Platelets (Bld) [#/Vol] 403 10*3/uL Normal 150-450 [facility] Comment on above: Performed By: #### B MP, HS TROP, CBC, PT, PTT, BNP #### [address] RBC (Bld) [#/Vol] 4.20 10*6/uL Normal 3.90-5.60 [facility] Comment on above: Performed By: #### B MP, HS TROP, CBC, PT, PTT, BNP #### [address] WBC (Bld) [#/Vol] 11.9 10*3/uL High 4.5-11.0 [facility] Comment on above: Performed By: #### B MP, HS TROP, CBC, PT, PTT, BNP #### [address] Comprehensive Metabolic Pane nitin 12-10-2020 Albumin [Mass/Vol] 3.1 g/dL Low 3.2-5.5 [facility] Comment on above: Result Comment: --- 12/10/201240 --- Alb previously reported as: 2.8 L gm/dL Performed By: #### B MP, HS TROP, CBC, PT, PTT, BNP #### [address] Albumin/Globulin [Mass ratio] 0.9 {ratio} Normal [facility] Comment on above: Result Comment: --- 08/26/21 1241 --- A/G Ratio previously reported as: 0.8 Performed By: #### B MP, HS TROP, CBC, PT, PTT, BNP #### [address] ALP [Catalytic activity/Vol] 98 U/L High 32-92 [facility] Comment on above: Result Comment: --- 12/10/201241 --- Alk Phos previously reported as: 91 U/L Performed By: #### B MP, HS TROP, CBC, PT, PTT, BNP #### [address] ALT [Catalytic activity/Vol] 123 U/L High 10-60 [facility] Comment on above: Result Comment: --- 12/10/201241 --- ALT previously reported as: 116 H U/L Performed By: #### B MP, HS TROP, CBC, PT, PTT, BNP #### [address] AST [Catalytic activity/Vol] 91 U/L High 10-42 [facility] Comment on above: Result Comment: --- 12/10/201241 --- AST previously reported as: 82 H U/L Performed By: #### B MP, HS TROP, CBC, PT, PTT, BNP #### [address] Bilirubin [Mass/Vol] 0.7 mg/dL Normal 0.3-1.2 [facility] Comment on above: Result Comment: --- 12/10/201240 --- TOTAL BILI previously reported as: 0.9 mg/dL Performed By: #### B MP, HS TROP, CBC, PT, PTT, BNP #### [address] Calcium [Mass/Vol] 9.0 mg/dL Normal 8.2-10.2 [facility] Comment on above: Result Comment: --- 12/10/201240 --- CA previously reported as: 8.2 mg/dL Performed By: #### B MP, HS TROP, CBC, PT, PTT, BNP #### [address] Chloride [Moles/Vol] 99 mmol/L Normal 95-114 [facility] Comment on above: Result Comment: --- 12/10/20 124 --- CL previously reported as: 97 mmol/L Performed By: #### B MP, HS TROP, CBC, PT, PTT, BNP #### [address] CO2 [Moles/Vol] 20.4 mmol/L Low 22.0-30.0 [facility] Comment on above: Result Comment: --- 12/10/201240 --- CO2 previously reported as: 21.7 L mmol/L Performed By: #### B MP, HS TROP, CBC, PT, PTT, BNP #### [address] Creatinine [Mass/Vol] 1.09 mg/dL Normal 0.64-1.27 [facility] Comment on above: Result Comment: --- 12/10/201239 --- Creat previously reported as: 1.01 mg/dL Performed By: #### B MP, HS TROP, CBC, PT, PTT, BNP #### [address] Creatinine Clr Calc Pharmacy 77.72 [facility] Comment on above: Result Comment: --- 12/10/201239 --- Creat Calc PHA previously reported as: 83.87 PERFORMED BY: [place] [address] PATHOLOGIST [employer]KER SHYANN OLIVIER M.D. Performed By: #### B MP, HS TROP, CBC, PT, PTT, BNP #### [address] Estimated GFR ( Nata > 60 [facility] Comment on above: Result Comment: --- 12/10/20 1227 --- GFReAA previously reported as: > 60 mL/Min GFR estimated reference range: According to KDOQI guidelines, <60 ml/min/1.73m2 is sufficient to diagnose a patient with chronic kidney disease. Performed By: #### B MP, HS TROP, CBC, PT, PTT, BNP #### [facility] [address] Estimated GFR (Non- Am > 60 Normal [facility] Comment on above: Result Comment: --- 12/10/20 1227 --- GFRe previously reported as: > 60 mL/Min Performed By: #### B MP, HS TROP, CBC, PT, PTT, BNP #### [facility] [address] Globulin (S) [Mass/Vol] 3.3 g/dL Normal [facility] Comment on above: Result Comment: --- 12/10/20 1227 --- Glob previously reported as: 3.3 gm/dL Performed By: #### B MP, HS TROP, CBC, PT, PTT, BNP #### [address] Glucose [Mass/Vol] 160 mg/dL High 70-100 [facility] Comment on above: Result Comment: Resu lts [...] HS TROP, CBC, PT, PTT, BNP #### [address] Potassium [Moles/Vol] 4.1 mmol/L Normal 3.5-5.1 [facility] Comment on above: Result Comment: --- 12/10/20 1241 --- K previously reported as: 3.8 mmol/L Performed By: #### B MP, HS TROP, CBC, PT, PTT, BNP #### [address] Protein [Mass/Vol] 6.4 g/dL Normal 6.1-7.9 [facility] Comment on above: Result Comment: --- 12/10/20 1241 --- TP previously reported as: 6.1 gm/dL Performed By: #### B MP, HS TROP, CBC, PT, PTT, BNP #### [facility] [address] Sodium [Moles/Vol] 134 mmol/L Low 136-146 [facility] Comment on above: Result Comment: --- 12/10/20 1241 --- NA previously reported as: 128 # L mmol/L Performed By: #### B MP, HS TROP, CBC, PT, PTT, BNP #### [facility] [address] Urea nitrogen [Mass/Vol] 10 mg/dL Normal 9-23 [facility] Comment on above: Result Comment: --- 12/10/20 1239 --- BUN previously reported as: 10 mg/dL Performed By: #### B MP, HS TROP, CBC, PT, PTT, BNP #### [facility] [address] ECG 12 lead ECGon 12-10-2020 ECG 12 lead ECG [facility] Main [place] [address] [place] [address] Electrocardiograph Report Signed Patient: Vishal Duke MR#: [id number] : 1960 Acct:[id number] Age/Sex: 59 / M ADM Date: 12/08/20 Loc: Room: [address] [place] [address] Type: ADM IN Attending Dr: Leonardo Storey [...] in Lateral leads Confirmed by [facility] ([id number]) on 12/10/2020 9:00:58 AM Referred By: Electronically Signed By:KADEN DAUGHERTY MD, FACC Transcribed By: MUS Dictated By: Kaden Daugherty MD, [facility] 12/10/20 0652 Signed By: 12/10/20 0901 Normal [facility] echo transthoracicon [facility] echo transthoracic [facility] Main [place] [id number] Echocardiogram Signed Patient: Vishal Duke MR#: [id number] : 1960 Acct:[id number] Age/Sex: 59 / M ADM Date: 12/08/20 Loc: Room: [address] [place] [address] Type: ADM IN Attending Dr: Leonardo Storey MD Ordering Provider: Leonardo Storey MD Date of Service: 12/09/20 [facility] echo transthoracic: torsades de pointes Copies to: [...] Transcribed By: VIRIDIANA 12/10/20 1150 Dictated By: Giovnaa Fu DO 12/10/20 0816 Signed By: 12/10/20 1150 [facility] Glucose Poct Glucometerson 0 12-10-2020 Glucose [Mass/Vol] 157 mg/dL [facility] Comment on above: Result Comment: [facility] Glucose Reference Range is dependent on time and content of last meal. Glucose of more than 200 mg/dL in a nonstressed, ambulatory subject supports the diagnosis of Diabetes Mellitus. PERFORMED BY: [place] [address] PATHOLOGIST INN[employer]LE MAKER SHYANN OLIVIER M.D. Performed By: #### B MP, HS TROP, CBC, PT, PTT, BNP #### [address] Commemt1 Glu2: Cleaned Meter Normal [facility] Comment on above: Result Comment: PERF ORMED BY: [facility] [address] [place] [id number] PATHOLOGIST INN[employer]LE MAKER SHYANN OLIVIER M.D. Performed By: #### B MP, HS TROP, CBC, PT, PTT, BNP #### [address] Glucose [Mass/Vol] 122 mg/dL Normal [facility] Comment on above: Result Comment: [place] om Glucose Reference Range is dependent on time and content of last meal. Glucose of more than 200 mg/dL in a nonstressed, ambulatory subject supports the diagnosis of Diabetes Mellitus. Performed By: #### B MP, HS TROP, CBC, PT, PTT, BNP #### [address] Glucose [Mass/Vol] 179 mg/dL Normal [facility] Comment on above: Result Comment: [place] om Glucose Reference Range is dependent on time and content of last meal. Glucose of more than 200 mg/dL in a nonstressed, ambulatory subject supports the diagnosis of Diabetes Mellitus. PERFORMED BY: [place] [address] PATHOLOGIST INN[employer]LE MAKER SHYANN OLIVIER M.D. Performed By: #### B MP, HS TROP, CBC, PT, PTT, BNP #### [place] [id number] [facility] Troponin I High Sensitivityo n 12-10-2020 Troponin I High Sensitivity 9777 pg/mL Off scale high 0-20 [facility] Comment on above: Result Comment: PERF ORMED BY: [place] [address] PATHOLOGIST IN[employer] MAKER SHYANN OLIVIER M.D. Performed By: #### B MP, HS TROP, CBC, PT, PTT, BNP #### [place] [id number] [place] XR chest 1V portableon 12-10 XR chest 1V portable [facility] Main [place] [address] [place] [address] XRay Report Signed Patient: Vishal Duke MR#: [id number] : 1960 Acct:[id number] Age/Sex: 59 / M ADM Date: 12/08/20 Loc: Room: [address] [place] [address] Type: ADM IN Attending Dr: Leonardo Storey [...] Ajith Saleh M.D.12/10/2020 8:05 AM Dictation Location: [place] [address] Transcribed By: [facility] 12/10/20804 Dictated By: Ajith Saleh II, MD 12/10/20802 Signed By: 12/10/20804 Normal [facility] Basic Metabolic Panelon 11-16 Calcium [Mass/Vol] 9.6 mg/dL Normal 8.2-10.2 [facility] Comment on above: Performed By: #### B MP, HS TROP, CBC, PT, PTT, BNP #### [facility] [address] [place] [address] [place] Chloride [Moles/Vol] 101 mmol/L Normal 95-114 [facility] Comment on above: Performed By: #### B MP, HS TROP, CBC, PT, PTT, BNP #### [facility] [address] [place] [address] [place] CO2 [Moles/Vol] 23.3 mmol/L Normal 22.0-30.0 [facility] Comment on above: Performed By: #### B MP, HS TROP, CBC, PT, PTT, BNP #### [address] Creatinine [Mass/Vol] 0.97 mg/dL Normal 0.64-1.27 [facility] Comment on above: Performed By: #### B MP, HS TROP, CBC, PT, PTT, BNP #### [address] Creatinine Clr Calc Pharmacy 87.33 [facility] Comment on above: Result Comment: PERF ORMED BY: [place] [address] PATHOLOGIST [employer] SHYANN OLIVIER M.D. Performed By: #### B MP, HS TROP, CBC, PT, PTT, BNP #### [address] Estimated GFR ( Nata > 60 [facility] Comment on above: Result Comment: GFR estimated reference range: According to KDOQI guidelines, <60 ml/min/1.73m2 is sufficient to diagnose a patient with chronic kidney disease. Performed By: #### B MP, HS TROP, CBC, PT, PTT, BNP #### [address] Estimated GFR (Non- Am > 60 [facility] Comment on above: Performed By: #### B MP, HS TROP, CBC, PT, PTT, BNP #### [address] Glucose [Mass/Vol] 128 mg/dL High 70-100 [facility] Comment on above: Result Comment: [place] om Glucose Reference Range is dependent on time and content of last meal. Glucose of more than 200 mg/dL in a nonstressed, ambulatory subject supports the diagnosis of Diabetes Mellitus. ADA recommended reference range Performed By: #### B MP, HS TROP, CBC, PT, PTT, BNP #### [address] Potassium [Moles/Vol] 4.2 mmol/L Normal 3.5-5.1 [facility] Comment on above: Performed By: #### B MP, HS TROP, CBC, PT, PTT, BNP #### [address] Sodium [Moles/Vol] 139 mmol/L Normal 136-146 [facility] Comment on above: Performed By: #### B MP, HS TROP, CBC, PT, PTT, BNP #### [address] Urea nitrogen [Mass/Vol] 15 mg/dL Normal 9-23 [facility] Comment on above: Performed By: #### B MP, HS TROP, CBC, PT, PTT, BNP #### [address] Complete Blood Count Auto Di ffon 12-09-2020 Basophils (Bld) [#/Vol] 0.1 10*3/uL Normal 0.0-0.2 [facility] Comment on above: Result Comment: PERF ORMED BY: [place] [address] PATHOLOGIST [employer]KER SHYANN OLIVIER M.D. Performed By: #### B MP, HS TROP, CBC, PT, PTT, BNP #### [address] Basophils/100 WBC (Bld) 1.0 % Normal . [facility] Comment on above: Performed By: #### B MP, HS TROP, CBC, PT, PTT, BNP #### [address] Eosinophils (Bld) [#/Vol] 0.2 10*3/uL Normal 0.0-0.45 [facility] Comment on above: Performed By: #### B MP, HS TROP, CBC, PT, PTT, BNP #### [address] Eosinophils/100 WBC (Bld) 2.8 % Normal . [facility] Comment on above: Performed By: #### B MP, HS TROP, CBC, PT, PTT, BNP #### [address] Erythrocyte distribution width (RBC) [Ratio] 15.0 % High 12.0-14.8 [facility] Comment on above: Performed By: #### B MP, HS TROP, CBC, PT, PTT, BNP #### [address] Hematocrit (Bld) [Volume fraction] 41.9 % Normal 38.8-50.0 [facility] Comment on above: Performed By: #### B MP, HS TROP, CBC, PT, PTT, BNP #### [address] Hemoglobin (Bld) [Mass/Vol] 14.2 g/dL Normal 13.0-17.0 [facility] Comment on above: Performed By: #### B MP, HS TROP, CBC, PT, PTT, BNP #### [address] Lymphocytes (Bld) [#/Vol] 1.1 10*3/uL Normal 1.00-4.8 [facility] Comment on above: Performed By: #### B MP, HS TROP, CBC, PT, PTT, BNP #### [address] Lymphocytes/100 WBC (Bld) 13.9 % Normal . [facility] Comment on above: Performed By: #### B MP, HS TROP, CBC, PT, PTT, BNP #### [address] MCH (RBC) [Entitic mass] 31.4 pg Normal 27.5-35.2 [facility] Comment on above: Performed By: #### B MP, HS TROP, CBC, PT, PTT, BNP #### [address] MCV (RBC) [Entitic vol] 92.5 fL Normal 83.5-101 [facility] Comment on above: Performed By: #### B MP, HS TROP, CBC, PT, PTT, BNP #### [address] Mean Corpuscular HGB Conc 33.9 g/dL Normal 32.5-35.6 [facility] Comment on above: Performed By: #### B MP, HS TROP, CBC, PT, PTT, BNP #### [address] Monocytes (Bld) [#/Vol] 0.6 10*3/uL Normal 0.0-0.8 [facility] Comment on above: Performed By: #### B MP, HS TROP, CBC, PT, PTT, BNP #### [address] Monocytes/100 WBC (Bld) 8.3 % Normal . [facility] Comment on above: Performed By: #### B MP, HS TROP, CBC, PT, PTT, BNP #### [address] Neutrophils (Bld) [#/Vol] 5.8 10*3/uL Normal 1.8-7.7 [facility] Comment on above: Performed By: #### B MP, HS TROP, CBC, PT, PTT, BNP #### [address] Neutrophils/100 WBC (Bld) 74.0 % Normal . [facility] Comment on above: Performed By: #### B MP, HS TROP, CBC, PT, PTT, BNP #### [address] Nucleated RBC/100 WBC (Bld) [Ratio] 0.0 % Normal 0-0.5 [facility] Comment on above: Performed By: #### B MP, HS TROP, CBC, PT, PTT, BNP #### [address] Platelet mean volume (Bld) [Entitic vol] 8.0 fL Normal 6.6-10.1 [facility] Comment on above: Performed By: #### B MP, HS TROP, CBC, PT, PTT, BNP #### [address] Platelets (Bld) [#/Vol] 409 10*3/uL Normal 150-450 [facility] Comment on above: Performed By: #### B MP, HS TROP, CBC, PT, PTT, BNP #### [address] RBC (Bld) [#/Vol] 4.53 10*6/uL Normal 3.90-5.60 [facility] Comment on above: Performed By: #### B MP, HS TROP, CBC, PT, PTT, BNP #### [address] WBC (Bld) [#/Vol] 7.8 10*3/uL Normal 4.5-11.0 [facility] Comment on above: Performed By: #### B MP, HS TROP, CBC, PT, PTT, BNP #### [address] Creatine Kinaseon 12-09-2020 CK [Catalytic activity/Vol] 128 U/L Normal 22-269 [facility] Comment on above: Order Comment: get a ll labs @0315 per rn Performed By: #### B MP, HS TROP, CBC, PT, PTT, BNP #### [address] Creatinine Kinase MBon 12-09 CK.MB [Mass/Vol] 15.6 ng/mL High 0.6-6.3 [facility] Comment on above: Order Comment: get a ll labs @0315 per rn Performed By: #### B MP, HS TROP, CBC, PT, PTT, BNP #### [address] CKMB Relative Index 12.1 % High 0.00-2.50 [facility] Comment on above: Order Comment: get a ll labs @0315 per rn Performed By: #### B MP, HS TROP, CBC, PT, PTT, BNP #### [address] [place] [address] [place] ECG 12 lead ECGon 12-09-2020 ECG 12 lead ECG [facility] Main [place] [address] [place] [id number] Electrocardiograph Report Signed Patient: Vishal Duke MR#: [id number] : 1960 Acct:[id number] Age/Sex: 59 / M ADM Date: 12/08/20 Loc: Room: [address] [place] [address] Type: ADM IN Attending Dr: Leonardo Storey [...] Signed By:GIOVANA FU DO, FACC Transcribed By: MUS Dictated By: Giovana Fu DO 12/09/20 0816 Signed By: 12/09/20 1315 Normal [facility] Magnesiumon 12-09-2020 Magnesium [Mass/Vol] 2.0 mg/dL Normal 1.6-2.6 [facility] Comment on above: Order Comment: Comme nt Add on to am Result Comment: PERF ORMED BY: [address] [place] [address] PATHOLOGIST INNERSOLE MAKER SHYANN OLIVIER M.D. Performed By: #### B MP, HS TROP, CBC, PT, PTT, BNP #### [facility] [address] [place], [place] [id number] [place] Partial Thromboplastin Timeo n 12-09-2020 aPTT Coag (Bld) [Time] 37.7 s High 25.1-36.5 [facility] Comment on above: Result Comment: PERF ORMED BY: [place] [address] PATHOLOGIST INNERSOLE MAKER SHYANN OLIVIER M.D. Performed By: #### B MP, HS TROP, CBC, PT, PTT, BNP #### [facility] [address] [place] [address] [place] Prothrombin Time INRon 12-09 INR Coag (PPP) [Relative time] 1.2 {INR} Normal [facility] Comment on above: Result Comment: INR Therapeutic [...] TROP, CBC, PT, PTT, BNP #### [facility] [address] [place] [address] PT Coag (PPP) [Time] 13.8 s High 9.0-12.9 [facility] Comment on above: Performed By: #### B MP, HS TROP, CBC, PT, PTT, BNP #### [facility] [address] [place] [address] Troponin I High Sensitivityo n 12-09-2020 Troponin I High Sensitivity 1641 pg/mL Off scale high 0-20 [facility] Comment on above: Order Comment: * RN to call lab when pt returns hko Result Comment: PERF ORMED BY: [place] [address] PATHOLOGIST INNERSOLE MAKER SHYANN OLIVIER M.D. Performed By: #### B MP, HS TROP, CBC, PT, PTT, BNP #### [facility] [address] [place] [address] Troponin I High Sensitivity 2472 pg/mL Off scale high 0-20 [facility] Comment on above: Order Comment: Comme nt during code blue Result Comment: PERF ORMED BY: [place] [address] PATHOLOGIST INNERSOLE MAKER SHYANN OLIVIER M.D. Performed By: #### B MP, HS TROP, CBC, PT, PTT, BNP #### [address] Troponin I High Sensitivity 1363 pg/mL Off scale high 0-20 [facility] Comment on above: Order Comment: get a ll labs @0315 per rn Result Comment: PERF ORMED BY: [place] [address] PATHOLOGIST INNERSOLE MAKER SHYANN OLIVIER M.D. Performed By: #### B MP, HS TROP, CBC, PT, PTT, BNP #### [address] B-Type Natriuretic Peptideon 12-08-2020 Natriuretic peptide B (Bld) [Mass/Vol] 199.0 pg/mL High 5-100 [facility] Comment on above: Result Comment: PERF ORMED BY: [place] [address] PATHOLOGIST INNERSOLE MAKER SHYNAN OLIVIER M.D. Performed By: #### B MP, HS TROP, CBC, PT, PTT, BNP #### [address] Basic Metabolic Panelon 11-16 Calcium [Mass/Vol] 10.1 mg/dL Normal 8.2-10.2 [facility] Comment on above: Performed By: #### B MP, HS TROP, CBC, PT, PTT, BNP #### [place] [address] [place] Chloride [Moles/Vol] 101 mmol/L Normal 95-114 [facility] Comment on above: Performed By: #### B MP, HS TROP, CBC, PT, PTT, BNP #### [place] [address] [place] CO2 [Moles/Vol] 23.2 mmol/L Normal 22.0-30.0 [facility] Comment on above: Performed By: #### B MP, HS TROP, CBC, PT, PTT, BNP #### [address] Creatinine [Mass/Vol] 1.15 mg/dL Normal 0.64-1.27 [facility] Comment on above: Performed By: #### B MP, HS TROP, CBC, PT, PTT, BNP #### [address] Creatinine Clr Calc Pharmacy 81.22 [facility] Comment on above: Result Comment: PERF ORMED BY: [place] [address] PATHOLOGIST INNERSOLE MAKER SHYANN OLIVIER M.D. Performed By: #### B MP, HS TROP, CBC, PT, PTT, BNP #### [address] Estimated GFR ( Nata > 60 [facility] Comment on above: Result Comment: GFR estimated reference range: According to KDOQI guidelines, <60 ml/min/1.73m2 is sufficient to diagnose a patient with chronic kidney disease. Performed By: #### B MP, HS TROP, CBC, PT, PTT, BNP #### [address] Estimated GFR (Non- Am > 60 [facility] Comment on above: Performed By: #### B MP, HS TROP, CBC, PT, PTT, BNP #### [address] Glucose [Mass/Vol] 153 mg/dL High 70-100 [facility] Comment on above: Result Comment: [place] om Glucose Reference Range is dependent on time and content of last meal. Glucose of more than 200 mg/dL in a nonstressed, ambulatory subject supports the diagnosis of Diabetes Mellitus. ADA recommended reference range Performed By: #### B MP, HS TROP, CBC, PT, PTT, BNP #### [address] [place] [address] [place] Potassium [Moles/Vol] 4.5 mmol/L Normal 3.5-5.1 [facility] Comment on above: Performed By: #### B MP, HS TROP, CBC, PT, PTT, BNP #### [facility] [address] Sodium [Moles/Vol] 139 mmol/L Normal 136-146 [facility] Comment on above: Performed By: #### B MP, HS TROP, CBC, PT, PTT, BNP #### [facility] [address] Urea nitrogen [Mass/Vol] 15 mg/dL Normal 9-23 [facility] Comment on above: Performed By: #### B MP, HS TROP, CBC, PT, PTT, BNP #### [facility] [address] COVID-19 Antigenon 1 COVID-19 Antigen [facility] [...] should not be used as the sole Etssa Disclaimer basis for treatment or patient management [...] its performance Tessa Disclaimer characteristic determined by [employer] and Tessa Disclaimer validated at [facility]. This Tessa Disclaimer test has not been [...] Emergency Use Authorization for Coronavirus Tessa Disclaimer iseas during the Public Health Emergency) Tessa Disclaimer [...] is terminated or revoked sooner. PERFORMED BY: [facility] [place] [address] PATHOLOGIST INNERSOLE MAKER SHYANN OLIVIER M.D. [facility] Comment on above: Performed By: #### S TAYLER KESSLERID-19 [place], COVID 19 [facility] #### [facility] [address] [place] [address] [facility] 12[facility] SARS-CoV-2 (COVID-19) RNA ADELINE+probe Ql (Unsp spec) Negative Normal Negative [facility] Comment on above: Order Comment: Healt hcare Worker?: N Result Comment: Testing for SARS-CoV-2 by RT-PCR This test was developed and its performance characteristics determined by [employer] and validated at the [facility]. This test has not been FDA cleared [...] is terminated or revoked sooner. PERFORMED BY: [place] [address] PATHOLOGIST INNERSOLE MAKER SHYANN OLIVIER M.D. Performed By: #### B MP, HS TROP, CBC, PT, PTT, BNP #### [facility] [address] [place], [place] [id number] [facility] CT abdomen pelvis wo conon 0 12-08-2020 CT abdomen pelvis wo con [facility] Main [place] [address] [place] [address] CT Scan Report Signed Patient: Vishal Duke MR#: [id number] : 1960 Acct:[id number] Age/Sex: 59 / M ADM Date: 12/08/20 Loc: ER Room: Type: [facility] ER Attending Dr: Ordering Provider: Irwin Lutz DO Date of Service: 12/08/20 CT/CT abdomen pelvis wo con: f Copies [...] Biju Ag M.D.12/08/2020 11:16 AM Dictation Location: [place] [address] Transcribed By: [facility] 12/08/20 1116 Dictated By: Biju Ag MD 12/08/20 1102 Signed By: 12/08/20 1116 Normal [facility] Complete Blood Count Auto Di ffon 12-08-2020 Basophils (Bld) [#/Vol] 0.1 10*3/uL Normal 0.0-0.2 [facility] Comment on above: Result Comment: PERF ORMED BY: [place] [address] PATHOLOGIST INNERSOLE MAKER SHYANN OLIVIER M.D. Performed By: #### B MP, HS TROP, CBC, PT, PTT, BNP #### [address] Basophils/100 WBC (Bld) 0.6 % Normal . [facility] Comment on above: Performed By: #### B MP, HS TROP, CBC, PT, PTT, BNP #### [address] Eosinophils (Bld) [#/Vol] 0.2 10*3/uL Normal 0.0-0.45 [facility] Comment on above: Performed By: #### B MP, HS TROP, CBC, PT, PTT, BNP #### [address] Eosinophils/100 WBC (Bld) 2.5 % Normal . [facility] Comment on above: Performed By: #### B MP, HS TROP, CBC, PT, PTT, BNP #### [address] Erythrocyte distribution width (RBC) [Ratio] 15.2 % High 12.0-14.8 [facility] Comment on above: Performed By: #### B MP, HS TROP, CBC, PT, PTT, BNP #### [address] Hematocrit (Bld) [Volume fraction] 41.7 % Normal 38.8-50.0 [facility] Comment on above: Performed By: #### B MP, HS TROP, CBC, PT, PTT, BNP #### [address] Hemoglobin (Bld) [Mass/Vol] 14.0 g/dL Normal 13.0-17.0 [facility] Comment on above: Performed By: #### B MP, HS TROP, CBC, PT, PTT, BNP #### [address] Lymphocytes (Bld) [#/Vol] 0.9 10*3/uL Low 1.00-4.8 [facility] Comment on above: Performed By: #### B MP, HS TROP, CBC, PT, PTT, BNP #### [address] Lymphocytes/100 WBC (Bld) 10.9 % Normal . [facility] Comment on above: Performed By: #### B MP, HS TROP, CBC, PT, PTT, BNP #### [address] MCH (RBC) [Entitic mass] 31.5 pg Normal 27.5-35.2 [facility] Comment on above: Performed By: #### B MP, HS TROP, CBC, PT, PTT, BNP #### [address] MCV (RBC) [Entitic vol] 93.7 fL Normal 83.5-101 [facility] Comment on above: Performed By: #### B MP, HS TROP, CBC, PT, PTT, BNP #### [address] Mean Corpuscular HGB Conc 33.6 g/dL Normal 32.5-35.6 [facility] Comment on above: Performed By: #### B MP, HS TROP, CBC, PT, PTT, BNP #### [facility] [address] Monocytes (Bld) [#/Vol] 0.6 10*3/uL Normal 0.0-0.8 [facility] Comment on above: Performed By: #### B MP, HS TROP, CBC, PT, PTT, BNP #### [address] Monocytes/100 WBC (Bld) 7.4 % Normal . [facility] Comment on above: Performed By: #### B MP, HS TROP, CBC, PT, PTT, BNP #### [address] Neutrophils (Bld) [#/Vol] 6.7 10*3/uL Normal 1.8-7.7 [facility] Comment on above: Performed By: #### B MP, HS TROP, CBC, PT, PTT, BNP #### [address] Neutrophils/100 WBC (Bld) 78.6 % Normal . [facility] Comment on above: Performed By: #### B MP, HS TROP, CBC, PT, PTT, BNP #### [address] Nucleated RBC/100 WBC (Bld) [Ratio] 0.1 % Normal 0-0.5 [facility] Comment on above: Performed By: #### B MP, HS TROP, CBC, PT, PTT, BNP #### [address] Platelet mean volume (Bld) [Entitic vol] 8.2 fL Normal 6.6-10.1 [facility] Comment on above: Performed By: #### B MP, HS TROP, CBC, PT, PTT, BNP #### [address] Platelets (Bld) [#/Vol] 414 10*3/uL Normal 150-450 [facility] Comment on above: Performed By: #### B MP, HS TROP, CBC, PT, PTT, BNP #### [facility] [address] RBC (Bld) [#/Vol] 4.44 10*6/uL Normal 3.90-5.60 [facility] Comment on above: Performed By: #### B MP, HS TROP, CBC, PT, PTT, BNP #### [address] WBC (Bld) [#/Vol] 8.5 10*3/uL Normal 4.5-11.0 [facility] Comment on above: Performed By: #### B MP, HS TROP, CBC, PT, PTT, BNP #### [address] Basophils (Bld) [#/Vol] 0.1 10*3/uL Normal 0.0-0.2 [facility] Comment on above: Result Comment: PERF ORMED BY: [place] [address] PATHOLOGIST INNERSOLE MAKER SHYANN OLIVIER M.D. Performed By: #### B MP, HS TROP, CBC, PT, PTT, BNP #### [address] Basophils/100 WBC (Bld) 0.7 % Normal . [facility] Comment on above: Performed By: #### B MP, HS TROP, CBC, PT, PTT, BNP #### [address] Eosinophils (Bld) [#/Vol] 0.2 10*3/uL Normal 0.0-0.45 [facility] Comment on above: Performed By: #### B MP, HS TROP, CBC, PT, PTT, BNP #### [address] Eosinophils/100 WBC (Bld) 1.8 % Normal . [facility] Comment on above: Performed By: #### B MP, HS TROP, CBC, PT, PTT, BNP #### [address] Erythrocyte distribution width (RBC) [Ratio] 15.5 % High 12.0-14.8 [facility] Comment on above: Performed By: #### B MP, HS TROP, CBC, PT, PTT, BNP #### [address] Hematocrit (Bld) [Volume fraction] 42.0 % Normal 38.8-50.0 [facility] Comment on above: Performed By: #### B MP, HS TROP, CBC, PT, PTT, BNP #### [address] Hemoglobin (Bld) [Mass/Vol] 14.2 g/dL Normal 13.0-17.0 [facility] Comment on above: Performed By: #### B MP, HS TROP, CBC, PT, PTT, BNP #### [address] Lymphocytes (Bld) [#/Vol] 0.8 10*3/uL Low 1.00-4.8 [facility] Comment on above: Performed By: #### B MP, HS TROP, CBC, PT, PTT, BNP #### [address] Lymphocytes/100 WBC (Bld) 7.7 % Normal . [facility] Comment on above: Performed By: #### B MP, HS TROP, CBC, PT, PTT, BNP #### [address] MCH (RBC) [Entitic mass] 31.3 pg Normal 27.5-35.2 [facility] Comment on above: Performed By: #### B MP, HS TROP, CBC, PT, PTT, BNP #### [address] MCV (RBC) [Entitic vol] 92.4 fL Normal 83.5-101 [facility] Comment on above: Performed By: #### B MP, HS TROP, CBC, PT, PTT, BNP #### [address] Mean Corpuscular HGB Conc 33.9 g/dL Normal 32.5-35.6 [facility] Comment on above: Performed By: #### B MP, HS TROP, CBC, PT, PTT, BNP #### [facility] [address] [place] [address] [place] Monocytes (Bld) [#/Vol] 0.8 10*3/uL Normal 0.0-0.8 [facility] Comment on above: Performed By: #### B MP, HS TROP, CBC, PT, PTT, BNP #### [facility] [address] [place] [address] [place] Monocytes/100 WBC (Bld) 7.5 % Normal . [facility] Comment on above: Performed By: #### B MP, HS TROP, CBC, PT, PTT, BNP #### [facility] [address] Neutrophils (Bld) [#/Vol] 9.0 10*3/uL High 1.8-7.7 [facility] Comment on above: Performed By: #### B MP, HS TROP, CBC, PT, PTT, BNP #### [facility] [address] [place] [address] [place] Neutrophils/100 WBC (Bld) 82.3 % Normal . [facility] Comment on above: Performed By: #### B MP, HS TROP, CBC, PT, PTT, BNP #### [facility] [address] [place] [address] [place] Nucleated RBC/100 WBC (Bld) [Ratio] 0.1 % Normal 0-0.5 [facility] Comment on above: Performed By: #### B MP, HS TROP, CBC, PT, PTT, BNP #### [facility] [address] [place] [address] [place] Platelet mean volume (Bld) [Entitic vol] 7.9 fL Normal 6.6-10.1 [facility] Comment on above: Performed By: #### B MP, HS TROP, CBC, PT, PTT, BNP #### [facility] [address] [place] [address] [place] Platelets (Bld) [#/Vol] 463 10*3/uL High 150-450 [facility] Comment on above: Performed By: #### B MP, HS TROP, CBC, PT, PTT, BNP #### [address] RBC (Bld) [#/Vol] 4.54 10*6/uL Normal 3.90-5.60 [facility] Comment on above: Performed By: #### B MP, HS TROP, CBC, PT, PTT, BNP #### [address] WBC (Bld) [#/Vol] 11.0 10*3/uL Normal 4.5-11.0 [facility] Comment on above: Performed By: #### B MP, HS TROP, CBC, PT, PTT, BNP #### [address] Creatine Kinaseon 12-08-2020 CK [Catalytic activity/Vol] 78 U/L Normal 22-269 [facility] Comment on above: Performed By: #### B MP, HS TROP, CBC, PT, PTT, BNP #### [address] CK [Catalytic activity/Vol] 67 U/L Normal 22-269 [facility] Comment on above: Performed By: #### B MP, HS TROP, CBC, PT, PTT, BNP #### [address] CK [Catalytic activity/Vol] 58 U/L Normal 22-269 [facility] Comment on above: Performed By: #### B MP, HS TROP, CBC, PT, PTT, BNP #### [address] Creatinine Kinase MBon 12-08 CK.MB [Mass/Vol] 6.3 ng/mL Normal 0.6-6.3 [facility] Comment on above: Performed By: #### B MP, HS TROP, CBC, PT, PTT, BNP #### [address] CKMB Relative Index 8.0 % High 0.00-2.50 [facility] Comment on above: Performed By: #### B MP, HS TROP, CBC, PT, PTT, BNP #### [facility] [address] CK.MB [Mass/Vol] 4.2 ng/mL Normal 0.6-6.3 [facility] Comment on above: Performed By: #### B MP, HS TROP, CBC, PT, PTT, BNP #### [facility] [address] CKMB Relative Index 6.2 % High 0.00-2.50 [facility] Comment on above: Performed By: #### B MP, HS TROP, CBC, PT, PTT, BNP #### [address] CK.MB [Mass/Vol] 3.7 ng/mL Normal 0.6-6.3 [facility] Comment on above: Performed By: #### B MP, HS TROP, CBC, PT, PTT, BNP #### [facility] [address] CKMB Relative Index 6.3 % High 0.00-2.50 [facility] Comment on above: Performed By: #### B MP, HS TROP, CBC, PT, PTT, BNP #### [address] ECG 12 lead ECGon 12-08-2020 ECG 12 lead ECG [facility] [place] [address] Electrocardiograph Report Signed Patient: Vishal Duke MR#: [id number] : 1960 Acct:[id number] Age/Sex: 59 / M ADM Date: 12/08/20 Loc: Room: [address] [place] [address] Type: ADM INOo Attending Dr: Daniel Prabhakar [...] Lateral leads Confirmed by IRWIN LUTZ DO ([id number]) on 12/09/2020 6:02:40 AM Referred By: Electronically Signed By:IRWIN LUTZ DO Transcribed By: MUS Dictated By: Irwin Lutz DO 12/08/20 0950 Signed By: 12/09/20 0602 Normal [facility] Partial Thromboplastin Timeo n 12-08-2020 aPTT Coag (Bld) [Time] 131.9 s Off scale high 25.1-36.5 [facility] Comment on above: Result Comment: Resu lts called at 1947 on 12/08/20 PERFORMED BY: [place] [address] PATHOLOGIST INNERSOLE MAKER SHYANN OLIVIER M.D. Performed By: #### B MP, HS TROP, CBC, PT, PTT, BNP #### [facility] [address] [place] [address] [facility] aPTT Coag (Bld) [Time] 36.2 s Normal 25.1-36.5 [facility] Comment on above: Result Comment: PERF ORMED BY: [place] [address] PATHOLOGIST INNERSOLE MAKER SHYANN OLIVIER M.D. Performed By: #### B MP, HS TROP, CBC, PT, PTT, BNP #### [facility] [address] [place], [place] [id number] [place] Prothrombin Time INRon 12-08 INR Coag (PPP) [Relative time] 1.5 {INR} Normal [facility] Comment on above: Result Comment: INR Therapeutic [...] HS TROP, CBC, PT, PTT, BNP #### [facility] [address] PT Coag (PPP) [Time] 16.1 s High 9.0-12.9 [facility] Comment on above: Performed By: #### B MP, HS TROP, CBC, PT, PTT, BNP #### [address] INR Coag (PPP) [Relative time] 1.3 {INR} Normal [facility] Comment on above: Result Comment: INR Therapeutic [...] HS TROP, CBC, PT, PTT, BNP #### [address] PT Coag (PPP) [Time] 14.0 s High 9.0-12.9 [facility] Comment on above: Performed By: #### B MP, HS TROP, CBC, PT, PTT, BNP #### [address] Tessa Ag Negativeon 12-09-19 21 Tessa Ag Negative Negative Normal Negative [facility] Comment on above: Result Comment: This is a duplicate Tessa SARS Antigen (GISSEL) result to be used for statistical tracking purpose only. PERFORMED BY: [place] [address] PATHOLOGIST INNERSOLE MAKER SHYANN OLIVIER M.D. Performed By: #### S OFIANEG, COVID-19 [place], COVID 19 [facility] #### [facility] [address] [place] [address] [place] Troponin I High Sensitivityo n 12-08-2020 Troponin I High Sensitivity 474 pg/mL Off scale high 0-20 [facility] [facility] Comment on above: Result Comment: PERF ORMED BY: [place] [address] PATHOLOGIST INNERSOLE MAKER SHYANN OLIVIER M.D. Performed By: #### B MP, HS TROP, CBC, PT, PTT, BNP #### [address] Troponin I High Sensitivity 317 pg/mL Off scale high 0-20 [facility] Comment on above: Result Comment: PERF ORMED BY: [place] [address] PATHOLOGIST INNERSOLE MAKER SHYANN OLIVIER M.D. Performed By: #### B MP, HS TROP, CBC, PT, PTT, BNP #### [address] Troponin I High Sensitivity 183 pg/mL Off scale high 0-20 [facility] Comment on above: Result Comment: Crit ical value result called at 1719 on 12/08/20 PERFORMED BY: [place] [address] PATHOLOGIST INNERSOLE MAKER SHYANN OLIVIER M.D. Performed By: #### B MP, HS TROP, CBC, PT, PTT, BNP #### [facility] [address] [place] [address] Troponin I High Sensitivity 49 pg/mL High 0-20 [facility] Comment on above: Result Comment: PERF ORMED BY: [place] [address] PATHOLOGIST INNERSOLE MAKER SHYANN OLIVIER M.D. Performed By: #### B MP, HS TROP, CBC, PT, PTT, BNP #### [facility] [address] [place] [address] [place] XR chest 1V portableon 12-08 XR chest 1V portable [facility] Main [place] [address] [place] [address] XRay Report Signed Patient: Vishal Duke MR#: [id number] : 1960 Acct:[id number] Age/Sex: 59 / M ADM Date: 12/08/20 Loc: ER Room: Type: [facility] ER Attending Dr: Ordering Provider: Irwin Lutz [...] Biju Ag M.D.12/08/2020 11:02 AM Dictation Location: [place] [address] Transcribed By: [facility] 12/08/20 1102 Dictated By: Biju Ag MD 12/08/20 1059 Signed By: 12/08/20 1102 [facility] TACROLIMUSon 12-04-2020 Tacrolimus (Bld) [Mass/Vol] 8.0 ng/mL Normal 5.0-20.0 [facility] Comment on above: Order Comment: Yes: Add to Previous draw if able Result Comment: The [employer] Tacrolimus assay is a delayed one-step immunoassay for the quantitative determination of tacrolimus in human whole blood using the chemiluminescent microparticle immunoassay (CMIA) technology with flexible assay protocols, referred to as Chemiflex. Performed By: #### 2 5508, 00854, 79512, 39053, 42937 #### [facility] TROPONIN-Ion 12-04-2020 Troponin I.cardiac [Mass/Vol] 0.03 ng/mL Normal 0.00-0.04 [facility] Comment on above: Order Comment: No: D o not add to previous draw Pt in bath room askme to come back Result Comment: REFE RENCE RANGES: 0.00 - 0.04 ng/ml NORMAL 0.05 - 0.50 ng/ml INDETERMINATE > 0.50 ng/ml CONSISTENT WITH AN M.I. Performed By: #### 3 5200 #### [facility] [address] Order Comment: No: D o not add to previous draw Performed By: #### 2 5508, 30211, 84228, 01998, 51796 #### [facility] [address] Troponin I.cardiac [Mass/Vol] 0.03 ng/mL Normal 0.00-0.04 [facility] Comment on above: Result Comment: REFE RENCE RANGES: 0.00 - 0.04 ng/ml NORMAL 0.05 - 0.50 ng/ml INDETERMINATE > 0.50 ng/ml CONSISTENT WITH AN M.I. Performed By: #### 2 5508, 83550, 70809, 85940, 78392 #### [facility] [address] [facility] [place] [address], [facility] ktx basic metabolic panelon 12-04-2020 Calcium [Mass/Vol] 8.9 mg/dL Normal 8.6-10.3 [facility] Comment on above: Performed By: #### 2 5508, 47299, 41560, 08491, 68073 #### [facility] [address] [facility] [place] [address], [facility] Chloride [Moles/Vol] 106 mmol/L Normal 98-107 [facility] Comment on above: Performed By: #### 2 5508, 08140, 28281, 59333, 77053 #### [facility] [address] [place] [address], [place] CO2 [Moles/Vol] 19 mmol/L Low 21-31 [facility] Comment on above: Performed By: #### 2 5508, 00884, 96026, 09229, 98219 #### [facility] [address] [place] [address], [place] Creatinine [Mass/Vol] 0.82 mg/dL Normal 0.70-1.30 [facility] Comment on above: Performed By: #### 2 5508, 24384, 41310, 96293, 22898 #### [facility] [address] [place] [address], [place] GFR/1.73 sq M.predicted among blacks MDRD (S/P/Bld) [Vol rate/Area] mL/min/{1.73_m2} Normal >60 [facility] Comment on above: Performed By: #### 2 5508, 29892, 02035, 63480, 83287 #### [facility] [address] [place] [address], [place] GFR/1.73 sq M.predicted among non-blacks MDRD (S/P/Bld) [Vol rate/Area] mL/min/{1.73_m2} Normal >60 [facility] Comment on above: Performed By: #### 2 5508, 50118, 11418, 72077, 34284 #### [facility] [address] [place] [address], [place] Glucose [Mass/Vol] 127 mg/dL High 70-100 [facility] Comment on above: Performed By: #### 2 5508, 77422, 86459, 70313, 66813 #### [facility] [address] [place] [address], [facility] Potassium [Moles/Vol] 3.9 mmol/L Normal 3.5-5.1 [facility] Comment on above: Performed By: #### 2 5508, 88771, 20499, 73361, 56560 #### [facility] [address] [place] [address], [place] Sodium [Moles/Vol] 136 mmol/L Normal 136-145 [facility] Comment on above: Performed By: #### 2 5508, 50668, 69967, 30668, 92132 #### [facility] [address] [place] [address], [facility] Urea nitrogen [Mass/Vol] 10 mg/dL Normal 7-25 [facility] Comment on above: Performed By: #### 2 5508, 48586, 48775, 09442, 20214 #### [facility] [address] [place] [address], [place] ktx cbc complete blood count on 12-04-2020 Erythrocyte distribution width (RBC) [Ratio] 14.6 % Normal 11.5-15.0 [facility] Comment on above: Performed By: #### 6 1405 #### [facility] [address] [place] [address], [facility] Hematocrit (Bld) [Volume fraction] 38.7 % Low 39.0-50.0 [facility] Comment on above: Performed By: #### 6 1405 #### [facility] [address] [place] [address], [place] Hemoglobin (Bld) [Mass/Vol] 12.8 g/dL Low 13.0-17.0 [facility] Comment on above: Performed By: #### 6 1405 #### [facility] [address] [place] [address], [place] MCH (RBC) [Entitic mass] 31.3 pg Normal 27.0-33.0 [facility] Comment on above: Performed By: #### 6 1405 #### [facility] [address] MCHC (RBC) [Mass/Vol] 33.1 g/dL Normal 32.0-35.0 [facility] Comment on above: Performed By: #### 6 1405 #### [facility] [address] [place] [address], [facility] MCV (RBC) [Entitic vol] 94.6 fL Normal 82.0-98.0 [facility] Comment on above: Performed By: #### 6 1405 #### [facility] [address] Nucleated RBC/100 WBC (Bld) [Ratio] 0 % Normal 0-0 [facility] Comment on above: Performed By: #### 6 1405 #### [facility] [address] PLAT CNT 224 10*3/uL Normal 150-400 [facility] Comment on above: Performed By: #### 6 1405 #### [facility] [address] [place] [address], [facility] RBC (Bld) [#/Vol] 4.09 10*6/uL Low 4.20-5.70 [facility] Comment on above: Performed By: #### 6 1405 #### [facility] [address] [place] [address], [facility] WBC (Bld) [#/Vol] 12.30 10*3/uL High 4.00-10.60 [facility] Comment on above: Performed By: #### 6 1405 #### [facility] [address] [place] [address], [facility] ktx magnesium bloodon 2020 Magnesium [Mass/Vol] 1.6 mg/dL Low 1.9-2.7 [facility] Comment on above: Performed By: #### 2 5508, 91549, 35417, 03117, 76746 #### [facility] [address] [place] [address], [facility] ktx phosphoruson 12-04-2020 Phosphate [Mass/Vol] 2.4 mg/dL Low 2.5-5.0 [facility] Comment on above: Performed By: #### 2 5508, 87815, 58320, 92967, 28078 #### [facility] [address] [place] [address], [facility] TACROLIMUSon 12-03-2020 Tacrolimus (Bld) [Mass/Vol] 9.1 ng/mL Normal 5.0-20.0 [facility] Comment on above: Order Comment: Yes: Add to Previous draw if able Result Comment: The [employer] Tacrolimus assay is a delayed one-step immunoassay for the quantitative determination of tacrolimus in human whole blood using the chemiluminescent microparticle immunoassay (CMIA) technology with flexible assay protocols, referred to as Chemiflex. Performed By: #### 2 5508, 67901, 15146, 68621, 36778 #### [facility] [address] [place] [address], [facility] ktx basic metabolic panelon 12-03-2020 Calcium [Mass/Vol] 9.5 mg/dL Normal 8.6-10.3 [facility] Comment on above: Performed By: #### 2 5508, 93025, 40121, 41777, 51220 #### [facility] [address] [place] [address], [facility] Chloride [Moles/Vol] 102 mmol/L Normal 98-107 [facility] Comment on above: Performed By: #### 2 5508, 41111, 90350, 32705, 57594 #### [facility] [address] [place] [address], [place] CO2 [Moles/Vol] 22 mmol/L Normal 21-31 [facility] Comment on above: Performed By: #### 2 5508, 76718, 10144, 82569, 28054 #### [facility] [address] [place] [address], [place] Creatinine [Mass/Vol] 0.88 mg/dL Normal 0.70-1.30 [facility] Comment on above: Performed By: #### 2 5508, 73231, 12177, 17101, 55050 #### [facility] [address] [place] [address], [place] GFR/1.73 sq M.predicted among blacks MDRD (S/P/Bld) [Vol rate/Area] mL/min/{1.73_m2} Normal >60 [facility] Comment on above: Performed By: #### 2 5508, 05053, 76224, 67069, 73580 #### [facility] [address] [place] [address], [place] GFR/1.73 sq M.predicted among non-blacks MDRD (S/P/Bld) [Vol rate/Area] mL/min/{1.73_m2} Normal >60 [facility] Comment on above: Performed By: #### 2 5508, 73407, 72358, 43491, 89063 #### [facility] [address] [place] [address], [place] Glucose [Mass/Vol] 120 mg/dL High 70-100 [facility] Comment on above: Performed By: #### 2 5508, 56234, 16039, 94601, 07163 #### [facility] [address] [place] [address], [place] Potassium [Moles/Vol] 3.8 mmol/L Normal 3.5-5.1 [facility] Comment on above: Performed By: #### 2 5508, 95042, 67191, 38382, 97717 #### [facility] [address] [place] [address], [place] Sodium [Moles/Vol] 134 mmol/L Low 136-145 [facility] Comment on above: Performed By: #### 2 5508, 71773, 26675, 34408, 65612 #### [facility] [address] [place] [address], [facility] Urea nitrogen [Mass/Vol] 9 mg/dL Normal 7-25 [facility] Comment on above: Performed By: #### 2 5508, 78053, 16797, 82907, 49351 #### [facility] [address] [place] [address], [facility] ktx cbc complete blood count on 12-03-2020 Erythrocyte distribution width (RBC) [Ratio] 14.6 % Normal 11.5-15.0 [facility] Comment on above: Performed By: #### 6 1405 #### [facility] [address] Hematocrit (Bld) [Volume fraction] 40.4 % Normal 39.0-50.0 [facility] Comment on above: Performed By: #### 6 1405 #### [facility] [address] [facility] [address], [facility] Hemoglobin (Bld) [Mass/Vol] 13.6 g/dL Normal 13.0-17.0 [facility] Comment on above: Performed By: #### 6 1405 #### [facility] [address] [place] [address], [facility] MCH (RBC) [Entitic mass] 31.1 pg Normal 27.0-33.0 [facility] Comment on above: Performed By: #### 6 1405 #### [facility] [address] [place] [address], [facility] MCHC (RBC) [Mass/Vol] 33.7 g/dL Normal 32.0-35.0 [facility] Comment on above: Performed By: #### 6 1405 #### [facility] [address] [place] [address], [facility] MCV (RBC) [Entitic vol] 92.4 fL Normal 82.0-98.0 [facility] Comment on above: Performed By: #### 6 1405 #### [facility] [address] [facility] [place] [address], [facility] Nucleated RBC/100 WBC (Bld) [Ratio] 0 % Normal 0-0 [facility] Comment on above: Performed By: #### 6 1405 #### [facility] [address] [place] [address], [facility] PLAT CNT 240 10*3/uL Normal 150-400 [facility] Comment on above: Performed By: #### 6 1405 #### [facility] [address] [place] [address], [facility] RBC (Bld) [#/Vol] 4.37 10*6/uL Normal 4.20-5.70 [facility] Comment on above: Performed By: #### 6 1405 #### [facility] [address] [place] [address], [facility] WBC (Bld) [#/Vol] 12.42 10*3/uL High 4.00-10.60 [facility] Comment on above: Performed By: #### 6 1405 #### [facility] [address] [place] [address], [facility] ktx magnesium bloodon 2020 Magnesium [Mass/Vol] 2.1 mg/dL Normal 1.9-2.7 [facility] Comment on above: Performed By: #### 2 5508, 48432, 16484, 38085, 80573 #### [facility] [address] [place] [address], [facility] ktx phosphoruson 12-03-2020 Phosphate [Mass/Vol] 3.3 mg/dL Normal 2.5-5.0 [facility] Comment on above: Performed By: #### 2 5508, 54844, 13031, 36999, 99037 #### [facility] [address] [place] [address], [place] BASIC METABOLIC PANELon 08- Calcium [Mass/Vol] 10.1 mg/dL Normal 8.6-10.3 [facility] Comment on above: Order Comment: No: D o not add to previous draw Performed By: #### 2 5508, 34386, 45304, 55764, 77801 #### [facility] [address] [place] [address], [place] Chloride [Moles/Vol] 97 mmol/L Low 98-107 [facility] Comment on above: Order Comment: No: D o not add to previous draw Performed By: #### 2 5508, 77094, 76523, 24653, 87084 #### [facility] [address] [place] [address], [place] CO2 [Moles/Vol] 27 mmol/L Normal 21-31 [facility] Comment on above: Order Comment: No: D o not add to previous draw Performed By: #### 2 5508, 94342, 49863, 23609, 15558 #### [facility] [address] [place] [address], [place] Creatinine [Mass/Vol] 1.12 mg/dL Normal 0.70-1.30 [facility] Comment on above: Order Comment: No: D o not add to previous draw Performed By: #### 2 5508, 97473, 98351, 19666, 65041 #### [facility] [address] [place] [address], [place] GFR/1.73 sq M.predicted among blacks MDRD (S/P/Bld) [Vol rate/Area] mL/min/{1.73_m2} Normal >60 [facility] Comment on above: Order Comment: No: D o not add to previous draw Performed By: #### 2 5508, 88108, 79598, 06693, 01449 #### [facility] [address] [place] [address], [facility] GFR/1.73 sq M.predicted among non-blacks MDRD (S/P/Bld) [Vol rate/Area] mL/min/{1.73_m2} Normal >60 [facility] Comment on above: Order Comment: No: D o not add to previous draw Performed By: #### 2 5508, 49464, 27647, 91320, 27272 #### [facility] [address] [place] [address], [place] Glucose [Mass/Vol] 124 mg/dL High 70-100 [facility] Comment on above: Order Comment: No: D o not add to previous draw Performed By: #### 2 5508, 55143, 51201, 99381, 38103 #### [facility] [address] [place] [address], [place] Potassium [Moles/Vol] 4.4 mmol/L Normal 3.5-5.1 [facility] Comment on above: Order Comment: No: D o not add to previous draw Performed By: #### 2 5508, 65674, 70705, 91601, 99547 #### [facility] [address] [place] [address], [place] Sodium [Moles/Vol] 133 mmol/L Low 136-145 [facility] Comment on above: Order Comment: No: D o not add to previous draw Performed By: #### 2 5508, 06682, 19587, 19178, 03862 #### [facility] [address] [place] [address], [place] Urea nitrogen [Mass/Vol] 17 mg/dL Normal 7-25 [facility] Comment on above: Order Comment: No: D o not add to previous draw Performed By: #### 2 5508, 28890, 14269, 64410, 76746 #### [facility] [address] CBC COMPLETE BLOOD COUNTon 0 - Erythrocyte distribution width (RBC) [Ratio] 14.7 % Normal 11.5-15.0 [facility] Comment on above: Order Comment: No: D o not add to previous draw Performed By: #### 6 1405 #### [facility] [address] [place] [address], [facility] Hematocrit (Bld) [Volume fraction] 43.7 % Normal 39.0-50.0 [facility] Comment on above: Order Comment: No: D o not add to previous draw Performed By: #### 6 1405 #### [facility] [address] [place] [address], [facility] Hemoglobin (Bld) [Mass/Vol] 14.1 g/dL Normal 13.0-17.0 [facility] Comment on above: Order Comment: No: D o not add to previous draw Performed By: #### 6 1405 #### [facility] [address] [place] [address], [facility] MCH (RBC) [Entitic mass] 30.8 pg Normal 27.0-33.0 [facility] Comment on above: Order Comment: No: D o not add to previous draw Performed By: #### 6 1405 #### [facility] [address] [place] [address], [facility] MCHC (RBC) [Mass/Vol] 32.3 g/dL Normal 32.0-35.0 [facility] Comment on above: Order Comment: No: D o not add to previous draw Performed By: #### 6 1405 #### [facility] [address] [facility] [address], [facility] MCV (RBC) [Entitic vol] 95.4 fL Normal 82.0-98.0 [facility] Comment on above: Order Comment: No: D o not add to previous draw Performed By: #### 6 1405 #### [facility] [address] [place] [address], [facility] Nucleated RBC/100 WBC (Bld) [Ratio] 0 % Normal 0-0 [facility] Comment on above: Order Comment: No: D o not add to previous draw Performed By: #### 6 1405 #### [facility] [address] [place] [address], [facility] PLAT CNT 257 10*3/uL Normal 150-400 [facility] Comment on above: Order Comment: No: D o not add to previous draw Performed By: #### 6 1405 #### [facility] [address] [facility] [place] [address], [facility] RBC (Bld) [#/Vol] 4.58 10*6/uL Normal 4.20-5.70 [facility] Comment on above: Order Comment: No: D o not add to previous draw Performed By: #### 6 1405 #### [facility] [address] [facility]. [place] [id number], [facility] WBC (Bld) [#/Vol] 13.96 10*3/uL High 4.00-10.60 [facility] Comment on above: Order Comment: No: D o not add to previous draw Performed By: #### 6 1405 #### [facility] [address] [facility] [place] [address], [facility] MAGNESIUM BLOODon 12-02-2020 Magnesium [Mass/Vol] 1.5 mg/dL Low 1.9-2.7 [facility] Comment on above: Order Comment: No: D o not add to previous draw Performed By: #### 2 5508, 25260, 94184, 91382, 36505 #### [facility] [address] [facility] [place] [address], [facility] PHOSPHORUS BLOODon Phosphate [Mass/Vol] 3.8 mg/dL Normal 2.5-5.0 [facility] Comment on above: Order Comment: No: D o not add to previous draw Performed By: #### 2 5508, 82879, 55156, 97482, 75849 #### [facility] [address] PROTHROMBIN TIMEon INR Coag (PPP) [Relative time] 1.12 {INR} Normal 0.91-1.16 [facility] Comment on above: Order Comment: No: D [...] CHEST 1995;108:[id number]. Performed By: #### 5 6101 ####[facility] [address] PT Coag (PPP) [Time] 14.4 s Normal 12.3-14.8 [facility] Comment on above: Order Comment: No: D o not add to previous draw Result Comment: ALL RESULTS MUST BE INTERPRETED WITH RESPECT TO BLOOD DRAWING ARTIFACT OR DILUTION ERROR OF ANTICOAGULANT AT THE TIME OF SAMPLING. Performed By: #### 5 6101 ####[facility] [place] [address], [facility] CBC W/DIFFon 12-01-2020 ABS IMM GRANS 0.1 10*3/uL Normal 0.0-0.2 [facility] Comment on above: Performed By: #### 6 1405 #### [facility] [address] [place] [address], [facility] ABS NEUTROPHILS 12.0 10*3/uL High 1.6-7.6 [facility] Comment on above: Performed By: #### 6 1405 #### [facility] [address] [facility] [address], [facility] Basophils (Bld) [#/Vol] 0.1 10*3/uL Normal 0.0-0.2 [facility] Comment on above: Performed By: #### 6 1405 #### [facility] [address] [place] [address], [facility] Basophils/100 WBC (Bld) 0.6 % Normal 0.0-1.0 [facility] Comment on above: Performed By: #### 6 1405 #### [facility] [address] [facility] [address], [facility] Eosinophils (Bld) [#/Vol] 0.1 10*3/uL Normal 0.0-0.5 [facility] Comment on above: Performed By: #### 6 1405 #### [facility] [address] [facility] [place] [address], [facility] Eosinophils/100 WBC (Bld) 0.7 % Normal 0.0-6.0 [facility] Comment on above: Performed By: #### 6 1405 #### [facility] [address] [place] [id number], [facility] Erythrocyte distribution width (RBC) [Ratio] 14.7 % Normal 11.5-15.0 [facility] Comment on above: Performed By: #### 6 1405 #### [facility] [address] [place] [address], [facility] Hematocrit (Bld) [Volume fraction] 47.3 % Normal 39.0-50.0 [facility] Comment on above: Performed By: #### 6 1405 #### [facility] [address] [facility] [place] [address], [facility] Hemoglobin (Bld) [Mass/Vol] 15.5 g/dL Normal 13.0-17.0 [facility] Comment on above: Performed By: #### 6 1405 #### [facility] [address] [place] [address], [facility] IMMATURE GRANS 0.7 % Normal 0.0-1.0 [facility] Comment on above: Performed By: #### 6 1405 #### [facility] [address] Lymphocytes (Bld) [#/Vol] 0.6 10*3/uL Low 1.2-4.0 [facility] Comment on above: Performed By: #### 6 1405 #### [facility] [address] Lymphocytes/100 WBC (Bld) 4.3 % Low 20.0-45.0 [facility] Comment on above: Performed By: #### 6 1405 #### [facility] [address] MCH (RBC) [Entitic mass] 31.0 pg Normal 27.0-33.0 [facility] Comment on above: Performed By: #### 6 1405 #### [facility] [address] [place] [address], [facility] MCHC (RBC) [Mass/Vol] 32.8 g/dL Normal 32.0-35.0 [facility] Comment on above: Performed By: #### 6 1405 #### [facility] [address] [place] [address], [facility] MCV (RBC) [Entitic vol] 94.6 fL Normal 82.0-98.0 [facility] Comment on above: Performed By: #### 6 1405 #### [facility] [address] [place] [address], [facility] Monocytes (Bld) [#/Vol] 1.0 10*3/uL Normal 0.1-1.0 [facility] Comment on above: Performed By: #### 6 1405 #### [facility] [address] [place] [address], [facility] MONOS 7.3 % Normal 5.0-12.0 [facility] Comment on above: Performed By: #### 6 1405 #### [facility] [address] [place] [address], [facility] Neutrophils/100 WBC (Bld) 86.4 % High 40.0-72.0 [facility] Comment on above: Performed By: #### 6 1405 #### [facility] [address] Nucleated RBC/100 WBC (Bld) [Ratio] 0 % Normal 0-0 [facility] Comment on above: Performed By: #### 6 1405 #### [facility] [address] [place] [address], [facility] PLAT CNT 289 10*3/uL Normal 150-400 [facility] Comment on above: Performed By: #### 6 1405 #### [facility] [address] [place] [address], [facility] RBC (Bld) [#/Vol] 5.00 10*6/uL Normal 4.20-5.70 [facility] Comment on above: Performed By: #### 6 1405 #### [facility] [address] [place] [address], [facility] WBC (Bld) [#/Vol] 13.82 10*3/uL High 4.00-10.60 [facility] Comment on above: Performed By: #### 6 1405 #### [facility] [address] [place] [address], [facility] COMP METABOLIC PANELon 12-01 Albumin [Mass/Vol] 4.7 g/dL Normal 3.5-5.7 [facility] Comment on above: Performed By: #### 2 5508, 21926, 26498, 12058, 55723 #### [facility] [address] [place] [address], [place] ALKALINE PHOSPH 73 IU/L Normal 34-104 [facility] Comment on above: Performed By: #### 2 5508, 92450, 85047, 32411, 49547 #### [facility] [address] [place] [address], [place] ALT [Catalytic activity/Vol] 27 U/L Normal 7-52 [facility] Comment on above: Performed By: #### 2 5508, 60203, 17292, 32596, 18622 #### [facility] [address] [place] [address], [place] AST [Catalytic activity/Vol] 21 U/L Normal 13-39 [facility] Comment on above: Performed By: #### 2 5508, 03808, 80311, 16806, 80553 #### [facility] [address] [place] [address], [place] Bilirubin [Mass/Vol] 0.6 mg/dL Normal 0.3-1.0 [facility] Comment on above: Performed By: #### 2 5508, 32106, 02863, 52509, 68419 #### [facility] [address] [place] [address], [place] Calcium [Mass/Vol] 9.9 mg/dL Normal 8.6-10.3 [facility] Comment on above: Performed By: #### 2 5508, 05975, 68431, 82185, 70822 #### [facility] [address] [place] [address], [facility] Chloride [Moles/Vol] 104 mmol/L Normal 98-107 [facility] Comment on above: Performed By: #### 2 5508, 46586, 53481, 49468, 43355 #### [facility] [address] [place] [address], [place] CO2 [Moles/Vol] 25 mmol/L Normal 21-31 [facility] Comment on above: Performed By: #### 2 5508, 21469, 53566, 16213, 57878 #### [facility] [address] [place] [address], [place] Creatinine [Mass/Vol] 1.40 mg/dL High 0.70-1.30 [facility] Comment on above: Performed By: #### 2 5508, 74320, 34626, 22681, 44994 #### [facility] [address] [place] [address], [facility] eGFR- non- 52 ml/min/1.73sq m Abnormal >60 [facility] Comment on above: Performed By: #### 2 5508, 59028, 33409, 21158, 02638 #### [facility] [address] [place] [address], [place] GFR/1.73 sq M.predicted among blacks MDRD (S/P/Bld) [Vol rate/Area] mL/min/{1.73_m2} Normal >60 [facility] Comment on above: Performed By: #### 2 5508, 84522, 23392, 47671, 46073 #### [facility] [address] [place] [address], [place] Glucose [Mass/Vol] 133 mg/dL High 70-100 [facility] Comment on above: Performed By: #### 2 5508, 26568, 05274, 32067, 44065 #### [facility] [address] [place] [address], [place] Potassium [Moles/Vol] 4.8 mmol/L Normal 3.5-5.1 [facility] Comment on above: Performed By: #### 2 5508, 82621, 94342, 75712, 64533 #### [facility] [address] [place] [address], [facility] Protein [Mass/Vol] 7.1 g/dL Normal 6.0-8.3 [facility] Comment on above: Performed By: #### 2 5508, 26132, 79685, 54153, 89766 #### [facility] [address] [place] [address], [facility] Sodium [Moles/Vol] 137 mmol/L Normal 136-145 [facility] Comment on above: Performed By: #### 2 5508, 75747, 55797, 18073, 20708 #### [facility] [address] [place] [address], [facility] Urea nitrogen [Mass/Vol] 19 mg/dL Normal 7-25 [facility] Comment on above: Performed By: #### 2 5508, 45594, 29048, 15842, 01493 #### [facility] [address] [place] [address], [facility] CT ABDOMEN AND PELVIS WO CON TRASTon 12-01-2020 CT ABDOMEN AND PELVIS WO CONTRAST [facility] Department of Radiology [address] [place] [id number] == Patient Name: VISHAL DUKE : 1960 Sex: M Age: Race: White Pt. Location: [facility] Patient Status: E Ordered Date: 12/01/2020 9:30:00 [...] Otherwise no change in appearance of the [place] kidneys. No evidence of cyst rupture. Right [...] achievable. Electronically signed: José Herman. Transcribed by: [email or web address], User Resident: Electronically Signed by: JOSÉ HERMAN @ 12/01/2020 11:45 AM Normal [facility] Comment on above: Order Comment: No: D o not add to previous draw CV'D BY [facility] AT 1240 LIPASE BLOODon 12-01-2020 LIPASE 40 Units/L Normal [facility] Comment on above: Performed By: #### 2 5508, 24753, 18004, 20868, 16376 #### [facility] [address] [place] [address], [facility] URINALYSIS REFLEXon 12-02-19 21 Appearance (U) SL CLOUDY Abnormal CLEAR [facility] Comment on above: Order Comment: Yes: Add to Previous draw if able Performed By: #### 2 5508, 37084, 75850, 78979, 34297 #### [facility] [address] [place] [address], [place] Bilirubin Ql (U) Negative Normal NEGATIVE [facility] Comment on above: Order Comment: Yes: Add to Previous draw if able Performed By: #### 2 5508, 18008, 00265, 04748, 55427 #### [facility] [address] [place] [address], [place] Color (U) TINO Abnormal YELLOW [facility] Comment on above: Order Comment: Yes: Add to Previous draw if able Performed By: #### 2 5508, 89309, 95906, 63425, 55593 #### [facility] [address] [place] [address], [facility] EPIS NONE SEEN Normal FEW,OCC,NONE SEEN [facility] Comment on above: Order Comment: Yes: Add to Previous draw if able Performed By: #### 2 5508, 85828, 26089, 43803, 17029 #### [facility] [address] [place] [address], [facility] Glucose Ql (U) Negative Normal NEGATIVE [facility] Comment on above: Order Comment: Yes: Add to Previous draw if able Performed By: #### 2 5508, 93225, 92946, 53888, 15267 #### [facility] [address] [place] [address], [facility] Hemoglobin Ql (U) Negative Normal NEGATIVE [facility] Comment on above: Order Comment: Yes: Add to Previous draw if able Performed By: #### 2 5508, 00822, 02259, 51513, 35115 #### [facility] [address] [place] [address], [facility] KETONE Negative Normal NEGATIVE [facility] Comment on above: Order Comment: Yes: Add to Previous draw if able Performed By: #### 2 5508, 88078, 51582, 99765, 74057 #### [facility] [address] [place] [address], [facility] LEUK MARIA A Negative Normal NEGATIVE [facility] Comment on above: Order Comment: Yes: Add to Previous draw if able Performed By: #### 2 5508, 27199, 61751, 18330, 47540 #### [facility] [address] [place] [address], [facility] MUCUS THREADS MOD Abnormal NONE SEEN [facility] Comment on above: Order Comment: Yes: Add to Previous draw if able Performed By: #### 2 5508, 02321, 65023, 55853, 60451 #### [facility] [address] [place] [address], [facility] Nitrite Ql (U) Negative Normal NEGATIVE [facility] Comment on above: Order Comment: Yes: Add to Previous draw if able Performed By: #### 2 5508, 27599, 50223, 51753, 29188 #### [facility] [address] [place] [address], [facility] pH (U) 5.0 [pH] Normal 5.0-8.0 [facility] Comment on above: Order Comment: Yes: Add to Previous draw if able Performed By: #### 2 5508, 96725, 89493, 12351, 41130 #### [facility] [address] [facility] [address], [facility] Protein Ql (U) 30 mg/dL Abnormal NEGATIVE [facility] Comment on above: Order Comment: Yes: Add to Previous draw if able Performed By: #### 2 5508, 10778, 93839, 83869, 51692 #### [facility] [address] [place] [address], [facility] RBC 0-2 Abnormal NONE SEEN [facility] Comment on above: Order Comment: Yes: Add to Previous draw if able Performed By: #### 2 5508, 36944, 33263, 59623, 37832 #### [facility] [address] [facility] [place] [address], [facility] SPEC GRAV 1.026 High 1.015-1.020 [facility] Comment on above: Order Comment: Yes: Add to Previous draw if able Performed By: #### 2 5508, 37779, 95392, 33279, 18087 #### [facility] [address] [facility] [place] [address], [facility] WBC UA 0-2 Abnormal NONE SEEN [facility] Comment on above: Order Comment: Yes: Add to Previous draw if able Performed By: #### 2 5508, 96231, 40274, 46327, 54236 #### [facility] [address] [facility]. [place], [place] [address] Pulmonary Functionon 15-2 021 Pulmonary Function MR #: [id number] [facility] PT. Name: Vishal Duke Date: 11/27/2020 Date [...] Care and Sleep Medicine Date Dict: 11/29/2020/01:09 P/Negro Syed MD Date Trans: 11/29/2020 01:09 P/ ROSARIO_JN:[id number] cc: Rosa M Gonzales M.D. [facility] [address] Normal [facility] ARTERIAL BLOOD GAS W/COOXon 11-27-2020 BASE EXCESS 3 mmol/L Normal -2-3 [facility] Comment on above: Performed By: #### 2 5508, 71595, 40448, 12747, 77077 #### [facility] [address] [place] [address], [facility] COHB 1.5 % Normal 0.0-1.5 [facility] Comment on above: Performed By: #### 2 5508, 81776, 69009, 57257, 85537 #### [facility] [address] [place] [address], [facility] DELIVERY SYSTEMS ROOM AIR Normal [facility] Comment on above: Performed By: #### 2 5508, 56009, 91900, 59789, 28395 #### [facility] [address] [place] [address], [facility] FIO2 0 % Normal [facility] Comment on above: Performed By: #### 2 5508, 64606, 56719, 94136, 18772 #### [facility] [address] [place] [address], [place] HCO3 (Bld) [Moles/Vol] 26 mmol/L Normal 21-28 [facility] Comment on above: Performed By: #### 2 5508, 04632, 56047, 69990, 63369 #### [facility] [address] [place] [address], [place] METHB 1.2 % Normal 0.0-1.5 [facility] Comment on above: Performed By: #### 2 5508, 61141, 99982, 43342, 42299 #### [facility] [address] [place] [address], [place] Oxygen (Bld) [Partial pressure] 93 mm[Hg] Normal 83-108 [facility] Comment on above: Performed By: #### 2 5508, 61390, 22874, 87399, 38039 #### [facility] [address] [place] [address], [facility] Oxygen saturation in Blood 95.6 % Normal 94.0-97.0 [facility] Comment on above: Performed By: #### 2 5508, 00910, 05855, 95194, 60192 #### [facility] [address] [place] [address], [facility] PCO2 35 mmHg Normal 35-45 [facility] Comment on above: Performed By: #### 2 5508, 42161, 02111, 40818, 84285 #### [facility] [address] [place] [address], [facility] pH (Bld) 7.48 [pH] High 7.35-7.45 [facility] Comment on above: Performed By: #### 2 5508, 71760, 38712, 71752, 93343 #### [facility] [address] [place] [address], [facility] THB 15.4 g/dL Normal 12.0-16.3 [facility] Comment on above: Performed By: #### 2 5508, 44152, 31172, 13969, 83169 #### [facility] [address] [place] [address], [facility] CREATININE BLOODon 1 Creatinine [Mass/Vol] 1.10 mg/dL Normal 0.70-1.30 [facility] Comment on above: Order Comment: No: D o not add to previous draw Performed By: #### 2 5508, 43321, 94944, 67141, 93162 #### [facility] [address] [place] [address], [facility] GFR/1.73 sq M.predicted among blacks MDRD (S/P/Bld) [Vol rate/Area] mL/min/{1.73_m2} Normal >60 [facility] Comment on above: Order Comment: No: D o not add to previous draw Performed By: #### 2 5508, 47855, 09436, 37513, 02989 #### [facility] [address] [facility] [place] [address], [facility] GFR/1.73 sq M.predicted among non-blacks MDRD (S/P/Bld) [Vol rate/Area] mL/min/{1.73_m2} Normal >60 [facility] Comment on above: Order Comment: No: D o not add to previous draw Performed By: #### 2 5508, 80696, 62603, 15136, 13093 #### [facility] [address] [facility] [place] [address], [facility] Cardiovascular Lab Reporton 10-29-2020 Cardiovascular Lab Report [facility] MR #: [id number] Department of Physician: Domo Mejia M.D. Division of Service Date: 10/29/2020 Cardiology Birthdate: 1960 Adult Cardiovascular Room #: [id number] Services [facility] [address] [place] [address] Cardiovascular Laboratory Report FINAL IMPRESSIONS: 1. Severe [...] daily for minimum of 6 months preferably supervisor intermediates. 6. Will consider elective revascularization of the right coronary artery should the patient continue to experience significant exertional angina; this will be a high risk procedure given tortuosity, calcification and ectasia. 7. Follow up with Dr. Chester in the [place] office in the next 1 to 2 [...] artery, failed attempt at deployment of a 6-Burkinan MynxGrip closure device. METHODS: After risks, benefits, and alternatives were explained, written informed consent was obtained. The patient was prepped and draped in usual sterile fashion over both groins. Using 1% lidocaine solution, local infiltration anesthesia was achieved. Using a micropuncture kit access to the right common femoral artery was obtained. A 6-Burkinan x 11 cm sheath was inserted without difficulty. Baseline femoral angiography was performed. Bilateral selective coronary angiography was performed using JL4 and JR4 catheters. Angiography of internal mammary artery graft was performed using a 6-Burkinan IM catheter. Limited angiography of the left subclavian was performed after retracting the catheter into the artery. After reviewing the images, it was elected to proceed with an interventional procedure. A 6-Burkinan XB3.5 guide catheter was advanced over J-wire [...] pressure to achieve optimal hemostasis once a 6-Burkinan MynxGrip closure device failed to deploy. Overall, [...] mammar (more content not included)... Normal [facility] BASIC METABOLIC PANELon 05-0 -2020 Calcium [Mass/Vol] 8.1 mg/dL Low 8.6-10.3 [facility] Comment on above: Order Comment: Yes: Add to Previous draw if able Performed By: #### 2 5508, 30884, 47892, 85021, 64245 #### [facility] [address] [place] [address], [facility] Chloride [Moles/Vol] 103 mmol/L Normal 98-107 [facility] Comment on above: Order Comment: Yes: Add to Previous draw if able Performed By: #### 2 5508, 91868, 68437, 34984, 82145 #### [facility] [address] [place] [address], [place] CO2 [Moles/Vol] 25 mmol/L Normal 21-31 [facility] Comment on above: Order Comment: Yes: Add to Previous draw if able Performed By: #### 2 5508, 91211, 76919, 62566, 22047 #### [facility] [address] [place] [address], [place] Creatinine [Mass/Vol] 0.88 mg/dL Normal 0.70-1.30 [facility] Comment on above: Order Comment: Yes: Add to Previous draw if able Performed By: #### 2 5508, 70700, 77821, 02728, 82579 #### [facility] [address] [place] [address], [place] GFR/1.73 sq M.predicted among blacks MDRD (S/P/Bld) [Vol rate/Area] mL/min/{1.73_m2} Normal >60 [facility] Comment on above: Order Comment: Yes: Add to Previous draw if able Performed By: #### 2 5508, 08049, 27499, 57165, 07479 #### [facility] [address] [place] [address], [place] GFR/1.73 sq M.predicted among non-blacks MDRD (S/P/Bld) [Vol rate/Area] mL/min/{1.73_m2} Normal >60 [facility] Comment on above: Order Comment: Yes: Add to Previous draw if able Performed By: #### 2 5508, 29762, 13613, 34841, 90931 #### [facility] [address] [place] [address], [place] Glucose [Mass/Vol] 119 mg/dL High 70-100 [facility] Comment on above: Order Comment: Yes: Add to Previous draw if able Performed By: #### 2 5508, 52947, 12611, 04548, 68144 #### [facility] [address] [place] [address], [place] Potassium [Moles/Vol] 3.6 mmol/L Normal 3.5-5.1 [facility] Comment on above: Order Comment: Yes: Add to Previous draw if able Performed By: #### 2 5508, 56606, 10011, 04403, 02414 #### [facility] [address] [place] [address], [place] Sodium [Moles/Vol] 133 mmol/L Low 136-145 [facility] Comment on above: Order Comment: Yes: Add to Previous draw if able Performed By: #### 2 5508, 93185, 52590, 87824, 02457 #### [facility] [address] [place] [address], [place] Urea nitrogen [Mass/Vol] 17 mg/dL Normal 7-25 [facility] Comment on above: Order Comment: Yes: Add to Previous draw if able Performed By: #### 2 5508, 63198, 65661, 97889, 03632 #### [facility] [address] [place] [address], [place] CBC COMPLETE BLOOD COUNTon - Erythrocyte distribution width (RBC) [Ratio] 13.3 % Normal 11.5-15.0 [facility] Comment on above: Order Comment: No: D o not add to previous draw Performed By: #### 6 1405 #### [facility] [address] [place] [address], [place] Hematocrit (Bld) [Volume fraction] 47.6 % Normal 39.0-50.0 [facility] Comment on above: Order Comment: No: D o not add to previous draw Performed By: #### 6 1405 #### [facility] [address] [place] [address], [place] Hemoglobin (Bld) [Mass/Vol] 15.9 g/dL Normal 13.0-17.0 [facility] Comment on above: Order Comment: No: D o not add to previous draw Performed By: #### 6 1405 #### [facility] [address] [place] [address], [place] MCH (RBC) [Entitic mass] 29.1 pg Normal 27.0-33.0 [facility] Comment on above: Order Comment: No: D o not add to previous draw Performed By: #### 6 1405 #### [facility] [address] [place] [address], [place] MCHC (RBC) [Mass/Vol] 33.4 g/dL Normal 32.0-35.0 [facility] Comment on above: Order Comment: No: D o not add to previous draw Performed By: #### 6 1405 #### [facility] [address] [place] [address], [facility] MCV (RBC) [Entitic vol] 87.2 fL Normal 82.0-98.0 [facility] Comment on above: Order Comment: No: D o not add to previous draw Performed By: #### 6 1405 #### [facility] [address] [facility] [address], [facility] Nucleated RBC/100 WBC (Bld) [Ratio] 0 % Normal 0-0 [facility] Comment on above: Order Comment: No: D o not add to previous draw Performed By: #### 6 1405 #### [facility] [address] [facility] [place] [address], [facility] PLAT CNT 306 10*3/uL Normal 150-400 [facility] Comment on above: Order Comment: No: D o not add to previous draw Performed By: #### 6 1405 #### [facility] [address] [facility] [place] [address], [facility] RBC (Bld) [#/Vol] 5.46 10*6/uL Normal 4.20-5.70 [facility] Comment on above: Order Comment: No: D o not add to previous draw Performed By: #### 6 1405 #### [facility] [address] [place] [address], [facility] WBC (Bld) [#/Vol] 10.07 10*3/uL Normal 4.00-10.60 [facility] Comment on above: Order Comment: No: D o not add to previous draw Performed By: #### 6 1405 #### [facility] [address] [place] [address], [facility] PORTABLE CHEST 1 VIEWon 05-0 PORTABLE CHEST 1 VIEW [facility] Department of Radiology [address] [place] [address] == Patient Name: VISHAL DUKE : 1960 Sex: M Age: Race: White Pt. Location: [id number] Patient Status: I Ordered Date: 08/19/2020 6:00:00 [...] right. Electronically signed: Dariela Vincent. Transcribed by: [email or web address], User Resident: Electronically Signed by: DARIELA VINCENT @ 08/19/2020 10:20 AM Normal [facility] Comment on above: Order Comment: No: D o not add to previous draw CV'D BY [facility] AT 1240 TACROLIMUSon 08-19-2020 Tacrolimus (Bld) [Mass/Vol] 8.5 ng/mL Normal 5.0-20.0 [facility] Comment on above: Order Comment: No: D o not add to previous draw Result Comment: The [employer] Tacrolimus assay is a delayed one-step immunoassay for the quantitative determination of tacrolimus in human whole blood using the chemiluminescent microparticle immunoassay (CMIA) technology with flexible assay protocols, referred to as Chemiflex. Performed By: #### 2 5508, 02319, 43933, 87318, 79683 #### [facility] [address] [place] [address], [place] BASIC METABOLIC PANELon Calcium [Mass/Vol] 8.8 mg/dL Normal 8.6-10.3 [facility] Comment on above: Order Comment: No: D o not add to previous draw Pt in bath room askme to come back Performed By: #### 3 5200 #### [facility] [address] [place] [address], [place] Chloride [Moles/Vol] 100 mmol/L Normal 98-107 [facility] Comment on above: Order Comment: No: D o not add to previous draw Pt in bath room askme to come back Performed By: #### 3 5200 #### [facility] [address] [place] [address], [place] CO2 [Moles/Vol] 28 mmol/L Normal 21-31 [facility] Comment on above: Order Comment: No: D o not add to previous draw Pt in bath room askme to come back Performed By: #### 3 5200 #### [facility] [address] [place] [address], [place] Creatinine [Mass/Vol] 0.87 mg/dL Normal 0.70-1.30 [facility] Comment on above: Order Comment: No: D o not add to previous draw Pt in bath room askme to come back Performed By: #### 3 5200 #### [facility] [address] [place] [address], [place] GFR/1.73 sq M.predicted among blacks MDRD (S/P/Bld) [Vol rate/Area] mL/min/{1.73_m2} Normal >60 [facility] Comment on above: Order Comment: No: D o not add to previous draw Pt in bath room askme to come back Performed By: #### 3 5200 #### [facility] [address] [place] [address], [place] GFR/1.73 sq M.predicted among non-blacks MDRD (S/P/Bld) [Vol rate/Area] mL/min/{1.73_m2} Normal >60 [facility] Comment on above: Order Comment: No: D o not add to previous draw Pt in bath room askme to come back Performed By: #### 3 5200 #### [facility] [address] [place] [address], [place] Glucose [Mass/Vol] 110 mg/dL High 70-100 [facility] Comment on above: Order Comment: No: D o not add to previous draw Pt in bath room askme to come back Performed By: #### 3 5200 #### [facility] [address] [place] [address], [place] Potassium [Moles/Vol] 3.7 mmol/L Normal 3.5-5.1 [facility] Comment on above: Order Comment: No: D o not add to previous draw Pt in bath room askme to come back Performed By: #### 3 5200 #### [facility] [address] [place] [address], [place] Sodium [Moles/Vol] 137 mmol/L Normal 136-145 [facility] Comment on above: Order Comment: No: D o not add to previous draw Pt in bath room askme to come back Performed By: #### 3 5200 #### [facility] [address] [place] [address], [place] Urea nitrogen [Mass/Vol] 18 mg/dL Normal 7-25 [facility] Comment on above: Order Comment: No: D o not add to previous draw Pt in bath room askme to come back Performed By: #### 3 5200 #### [facility] [address] [place] [address], [facility] TACROLIMUSon 08-17-2020 Tacrolimus (Bld) [Mass/Vol] 4.0 ng/mL Low 5.0-20.0 [facility] Comment on above: Order Comment: Unkno wn Result Comment: The [employer] Tacrolimus assay is a delayed one-step immunoassay for the quantitative determination of tacrolimus in human whole blood using the chemiluminescent microparticle immunoassay (CMIA) technology with flexible assay protocols, referred to as Chemiflex. Performed By: #### 2 5508, 09455, 59990, 89737, 36269 #### [facility] [address] [place] [address], [facility] BASIC METABOLIC PANELon Calcium [Mass/Vol] 8.3 mg/dL Low 8.6-10.3 [facility] Comment on above: Order Comment: Yes: Add to Previous draw if able Performed By: #### 2 5508, 38941, 26410, 57714, 29601 #### [facility] [address] [place] [address], [place] Chloride [Moles/Vol] 104 mmol/L Normal 98-107 [facility] Comment on above: Order Comment: Yes: Add to Previous draw if able Performed By: #### 2 5508, 86607, 49743, 67140, 19476 #### [facility] [address] [place] [address], [place] CO2 [Moles/Vol] 24 mmol/L Normal 21-31 [facility] Comment on above: Order Comment: Yes: Add to Previous draw if able Performed By: #### 2 5508, 13663, 21155, 27185, 62115 #### [facility] [address] [place] [address], [place] Creatinine [Mass/Vol] 0.82 mg/dL Normal 0.70-1.30 [facility] Comment on above: Order Comment: Yes: Add to Previous draw if able Performed By: #### 2 5508, 79310, 88160, 82081, 94049 #### [facility] [address] [place] [address], [place] GFR/1.73 sq M.predicted among blacks MDRD (S/P/Bld) [Vol rate/Area] mL/min/{1.73_m2} Normal >60 [facility] Comment on above: Order Comment: Yes: Add to Previous draw if able Performed By: #### 2 5508, 73091, 20011, 21100, 92930 #### [facility] [address] [place] [address], [facility] GFR/1.73 sq M.predicted among non-blacks MDRD (S/P/Bld) [Vol rate/Area] mL/min/{1.73_m2} Normal >60 [facility] Comment on above: Order Comment: Yes: Add to Previous draw if able Performed By: #### 2 5508, 03482, 19521, 88594, 43933 #### [facility] [address] [place] [address], [place] Glucose [Mass/Vol] 114 mg/dL High 70-100 [facility] Comment on above: Order Comment: Yes: Add to Previous draw if able Performed By: #### 2 5508, 85522, 49046, 61627, 27997 #### [facility] [address] [place] [address], [place] Potassium [Moles/Vol] 4.1 mmol/L Normal 3.5-5.1 [facility] Comment on above: Order Comment: Yes: Add to Previous draw if able Performed By: #### 2 5508, 89476, 99184, 75949, 55817 #### [facility] [address] [place] [address], [place] Sodium [Moles/Vol] 135 mmol/L Low 136-145 [facility] Comment on above: Order Comment: Yes: Add to Previous draw if able Performed By: #### 2 5508, 10018, 95882, 08660, 03431 #### [facility] [address] Urea nitrogen [Mass/Vol] 24 mg/dL Normal 7-25 [facility] Comment on above: Order Comment: Yes: Add to Previous draw if able Performed By: #### 2 5508, 15480, 60222, 22099, 15394 #### [facility] [address] [place] [address], [facility] MAGNESIUM BLOODon 08-16-2020 Magnesium [Mass/Vol] 1.9 mg/dL Normal 1.9-2.7 [facility] Comment on above: Order Comment: No: D o not add to previous draw Performed By: #### 4 1000, 94540, 63734 ####[facility] [place] [address], [facility] PHOSPHORUS BLOODon Phosphate [Mass/Vol] 3.1 mg/dL Normal 2.5-5.0 [facility] Comment on above: Order Comment: No: D o not add to previous draw Performed By: #### 4 1000, 89800, 76049 ####[facility] [place] [address], [facility] TACROLIMUSon 08-16-2020 Tacrolimus (Bld) [Mass/Vol] 3.5 ng/mL Low 5.0-20.0 [facility] Comment on above: Order Comment: Unkno wn Result Comment: The [employer] Tacrolimus assay is a delayed one-step immunoassay for the quantitative determination of tacrolimus in human whole blood using the chemiluminescent microparticle immunoassay (CMIA) technology with flexible assay protocols, referred to as Chemiflex. Performed By: #### 2 5508, 02354, 96282, 49203, 26124 #### [facility] [address] C REACTIVE PROTEINon 021 CRP [Mass/Vol] 20.9 mg/L High 0.0-7.0 [facility] Comment on above: Order Comment: Yes: Add to Previous draw if able Performed By: #### 2 5508, 64844, 97199, 08920, 18630 #### [facility] [address] [facility] [place] [address], [facility] CPKon 08-15-2020 CK [Catalytic activity/Vol] 38 U/L Normal 30-223 [facility] Comment on above: Order Comment: Unkno wn Performed By: #### 2 5508, 95697, 29949, 11133, 51805 #### [facility] [address] D DIMER TESTon 08-15-2020 D-DIMER TEST 2.03 mcg/mL FEU High 0.27-0.49 [facility] Comment on above: Order Comment: Yes: Add to Previous draw if able Result Comment: D-Di priscilla values of less than 0.50 ug/ml (FEU) are considered to be a negative predictor of thrombosis. However, the D-Dimer result should be used in conjunction with pretest probability and should not be used alone to diagnose a thrombotic event. Performed By: #### 2 5508, 98238, 62213, 70686, 10005 #### [facility] [address] [facility] [place] [address], [facility] FERRITINon 08-15-2020 Ferritin [Mass/Vol] 1412 ng/mL High 24-336 [facility] Comment on above: Order Comment: Unkno wn Performed By: #### 2 5508, 72378, 11975, 70882, 94423 #### [facility] [address] [place] [address], [facility] LDH BLOODon 08-15-2020 LDH 457 Units/L High 140-271 [facility] Comment on above: Order Comment: Unkno wn Performed By: #### 2 5508, 92213, 29096, 40297, 10827 #### [facility] [address] [place] [address], [facility] LIVER BATTERYon 08-15-2020 Albumin [Mass/Vol] 3.1 g/dL Low 3.5-5.7 [facility] Comment on above: Order Comment: Unkno wn Performed By: #### 2 5508, 55133, 17576, 56094, 40663 #### [facility] [address] [place] [address], [facility] ALKALINE PHOSPH 94 IU/L Normal 34-104 [facility] Comment on above: Order Comment: Unkno wn Performed By: #### 2 5508, 64835, 43192, 63688, 54327 #### [facility] [address] [place] [address], [facility] ALT [Catalytic activity/Vol] 108 U/L High 7-52 [facility] Comment on above: Order Comment: Unkno wn Performed By: #### 2 5508, 98598, 80089, 47116, 55547 #### [facility] [address] [place] [address], [facility] AST [Catalytic activity/Vol] 54 U/L High 13-39 [facility] Comment on above: Order Comment: Unkno wn Performed By: #### 2 5508, 14651, 52039, 08449, 64661 #### [facility] [address] [place] [address], [place] Bilirubin [Mass/Vol] 0.8 mg/dL Normal 0.3-1.0 [facility] Comment on above: Order Comment: Unkno wn Performed By: #### 2 5508, 89879, 88947, 23027, 36975 #### [facility] [address] [place] [address], [place] Bilirubin.direct [Mass/Vol] 0.2 mg/dL Normal 0.0-0.2 [facility] Comment on above: Order Comment: Unkno wn Performed By: #### 2 5508, 72328, 80700, 33608, 02115 #### [facility] [address] [place] [address], [facility] Protein [Mass/Vol] 5.9 g/dL Low 6.0-8.3 [facility] Comment on above: Order Comment: Unkno wn Performed By: #### 2 5508, 57013, 90225, 16109, 75746 #### [facility] [address] [place] [address], [facility] TACROLIMUSon 08-15-2020 Tacrolimus (Bld) [Mass/Vol] 4.4 ng/mL Low 5.0-20.0 [facility] Comment on above: Order Comment: Yes: Add to Previous draw if able Result Comment: The [employer] Tacrolimus assay is a delayed one-step immunoassay for the quantitative determination of tacrolimus in human whole blood using the chemiluminescent microparticle immunoassay (CMIA) technology with flexible assay protocols, referred to as Chemiflex. Performed By: #### 2 5508, 52322, 77687, 82680, 00736 #### [facility] [address] [place] [address], [facility] BASIC METABOLIC PANELon -3 Calcium [Mass/Vol] 8.2 mg/dL Low 8.6-10.3 [facility] Comment on above: Order Comment: No: D o not add to previous draw Performed By: #### 2 5508, 27246, 53998, 11506, 62034 #### [facility] [address] [place] [address], [facility] Chloride [Moles/Vol] 102 mmol/L Normal 98-107 [facility] Comment on above: Order Comment: No: D o not add to previous draw Performed By: #### 2 5508, 85159, 27575, 18034, 47136 #### [facility] [address] [place] [address], [facility] CO2 [Moles/Vol] 19 mmol/L Low 21-31 [facility] Comment on above: Order Comment: No: D o not add to previous draw Performed By: #### 2 5508, 00347, 13196, 48320, 37169 #### [facility] [address] [place] [address], [place] Creatinine [Mass/Vol] 0.95 mg/dL Normal 0.70-1.30 [facility] Comment on above: Order Comment: No: D o not add to previous draw Performed By: #### 2 5508, 05680, 24460, 96774, 81483 #### [facility] [address] [place] [address], [place] GFR/1.73 sq M.predicted among blacks MDRD (S/P/Bld) [Vol rate/Area] mL/min/{1.73_m2} Normal >60 [facility] Comment on above: Order Comment: No: D o not add to previous draw Performed By: #### 2 5508, 93566, 09994, 98907, 96626 #### [facility] [address] [place] [address], [place] GFR/1.73 sq M.predicted among non-blacks MDRD (S/P/Bld) [Vol rate/Area] mL/min/{1.73_m2} Normal >60 [facility] Comment on above: Order Comment: No: D o not add to previous draw Performed By: #### 2 5508, 86287, 42632, 06916, 06401 #### [facility] [address] [place] [address], [place] Glucose [Mass/Vol] 253 mg/dL High 70-100 [facility] Comment on above: Order Comment: No: D o not add to previous draw Performed By: #### 2 5508, 22949, 64282, 77602, 48093 #### [facility] [address] [place] [address], [place] Potassium [Moles/Vol] 4.0 mmol/L Normal 3.5-5.1 [facility] Comment on above: Order Comment: No: D o not add to previous draw Performed By: #### 2 5508, 52728, 00462, 76801, 32327 #### [facility] [address] Sodium [Moles/Vol] 130 mmol/L Low 136-145 [facility] Comment on above: Order Comment: No: D o not add to previous draw Performed By: #### 2 5508, 14697, 29961, 63082, 45836 #### [facility] [address] [facility] [address] Urea nitrogen [Mass/Vol] 34 mg/dL High 7-25 [facility] Comment on above: Order Comment: No: D o not add to previous draw Performed By: #### 2 5508, 22210, 11197, 38933, 86787 #### [facility] [address] [facility] [address] C REACTIVE PROTEINon 021 CRP [Mass/Vol] 19.7 mg/L High 0.0-7.0 [facility] Comment on above: Order Comment: No: D o not add to previous draw Performed By: #### 6 1405 #### [facility] [address] [facility]. [address] COMP METABOLIC PANELon 08-14 Albumin [Mass/Vol] 3.0 g/dL Low 3.5-5.7 [facility] Comment on above: Order Comment: This order is a replacement of the rejected order with accession [id number]. Performed By: #### 2 5508, 60078, 58023, 45888, 18424 #### [facility] [address] [facility] [place] [address], [facility] ALKALINE PHOSPH 81 IU/L Normal 34-104 [facility] Comment on above: Order Comment: This order is a replacement of the rejected order with accession [id number]. Performed By: #### 2 5508, 93561, 12397, 39897, 84594 #### [facility] [address] [place] [address], [facility] ALT [Catalytic activity/Vol] 80 U/L High 7-52 [facility] Comment on above: Order Comment: This order is a replacement of the rejected order with accession [id number]. Performed By: #### 2 5508, 19429, 15538, 20276, 81614 #### [facility] [address] [place] [address], [facility] AST [Catalytic activity/Vol] 52 U/L High 13-39 [facility] Comment on above: Order Comment: This order is a replacement of the rejected order with accession [id number]. Performed By: #### 2 5508, 11779, 96685, 96826, 21674 #### [facility] [address] [place] [address], [facility] Bilirubin [Mass/Vol] 0.7 mg/dL Normal 0.3-1.0 [facility] Comment on above: Order Comment: This order is a replacement of the rejected order with accession [id number]. Performed By: #### 2 5508, 86198, 44571, 20614, 93958 #### [facility] [address] [place] [address], [facility] Calcium [Mass/Vol] 8.1 mg/dL Low 8.6-10.3 [facility] Comment on above: Order Comment: This order is a replacement of the rejected order with accession [id number]. Performed By: #### 2 5508, 16381, 93301, 84242, 35550 #### [facility] [address] [place] [address], [facility] Chloride [Moles/Vol] 102 mmol/L Normal 98-107 [facility] Comment on above: Order Comment: This order is a replacement of the rejected order with accession [id number]. Performed By: #### 2 5508, 47011, 73756, 29468, 60638 #### [facility] [address] [place] [address], [facility] CO2 [Moles/Vol] 24 mmol/L Normal 21-31 [facility] Comment on above: Order Comment: This order is a replacement of the rejected order with accession [id number]. Performed By: #### 2 5508, 52502, 47076, 80875, 81499 #### [facility] [address] [place] [address], [facility] Creatinine [Mass/Vol] 0.98 mg/dL Normal 0.70-1.30 [facility] Comment on above: Order Comment: This order is a replacement of the rejected order with accession [id number]. Performed By: #### 2 5508, 96339, 89229, 15225, 09032 #### [facility] [address] [place] [address], [facility] GFR/1.73 sq M.predicted among blacks MDRD (S/P/Bld) [Vol rate/Area] mL/min/{1.73_m2} Normal >60 [facility] Comment on above: Order Comment: This order is a replacement of the rejected order with accession [id number]. Performed By: #### 2 5508, 71181, 70944, 14769, 22049 #### [facility] [address] [place] [address], [facility] GFR/1.73 sq M.predicted among non-blacks MDRD (S/P/Bld) [Vol rate/Area] mL/min/{1.73_m2} Normal >60 [facility] Comment on above: Order Comment: This order is a replacement of the rejected order with accession [id number]. Performed By: #### 2 5508, 87926, 25199, 39854, 45617 #### [facility] [address] [place] [address], [place] Glucose [Mass/Vol] 141 mg/dL High 70-100 [facility] Comment on above: Order Comment: This order is a replacement of the rejected order with accession [id number]. Performed By: #### 2 5508, 77223, 41272, 83341, 52004 #### [facility] [address] [place] [address], [facility] Potassium [Moles/Vol] 4.2 mmol/L Normal 3.5-5.1 [facility] Comment on above: Order Comment: This order is a replacement of the rejected order with accession [id number]. Performed By: #### 2 5508, 74576, 48103, 36440, 87451 #### [facility] [address] [place] [address], [facility] Protein [Mass/Vol] 5.6 g/dL Low 6.0-8.3 [facility] Comment on above: Order Comment: This order is a replacement of the rejected order with accession [id number]. Performed By: #### 2 5508, 19364, 55381, 51016, 62746 #### [facility] [address] [place] [address], [facility] Sodium [Moles/Vol] 132 mmol/L Low 136-145 [facility] Comment on above: Order Comment: This order is a replacement of the rejected order with accession [id number]. Performed By: #### 2 5508, 24425, 13737, 74818, 79547 #### [facility] [address] [place] [address], [facility] Urea nitrogen [Mass/Vol] 32 mg/dL High 7-25 [facility] Comment on above: Order Comment: This order is a replacement of the rejected order with accession [id number]. Performed By: #### 2 5508, 48123, 57686, 85959, 42288 #### [facility] [address] [place] [address], [facility] CPKon 08-14-2020 CK [Catalytic activity/Vol] 47 U/L Normal 30-223 [facility] Comment on above: Order Comment: No: D o not add to previous draw Performed By: #### 2 5508, 53080, 47238, 90199, 92580 #### [facility] [address] D DIMER TESTon 08-14-2020 D-DIMER TEST 2.41 mcg/mL FEU High 0.27-0.49 [facility] Comment on above: Order Comment: No: D o not add to previous draw Result Comment: D-Di priscilla values of less than 0.50 ug/ml (FEU) are considered to be a negative predictor of thrombosis. However, the D-Dimer result should be used in conjunction with pretest probability and should not be used alone to diagnose a thrombotic event. Performed By: #### 6 1405 #### [facility] [address] [place] [address], [facility] FERRITINon 08-14-2020 Ferritin [Mass/Vol] 836 ng/mL High 24-336 [facility] Comment on above: Order Comment: No: D o not add to previous draw Performed By: #### 2 5508, 99775, 02317, 73448, 85349 #### [facility] [address] [place] [address], [facility] LDH BLOODon 08-14-2020 LDH 310 Units/L High 140-271 [facility] Comment on above: Order Comment: No: D o not add to previous draw Performed By: #### 2 5508, 51590, 13531, 20587, 09463 #### [facility] [address] [place] [address], [facility] LIVER BATTERYon 08-14-2020 Albumin [Mass/Vol] 2.9 g/dL Low 3.5-5.7 [facility] Comment on above: Order Comment: No: D o not add to previous draw Performed By: #### 2 5508, 57846, 28299, 26408, 69899 #### [facility] [address] [place] [address], [facility] ALKALINE PHOSPH 78 IU/L Normal 34-104 [facility] Comment on above: Order Comment: No: D o not add to previous draw Performed By: #### 2 5508, 45406, 14989, 06977, 73016 #### [facility] [address] [place] [address], [facility] ALT [Catalytic activity/Vol] 83 U/L High 7-52 [facility] Comment on above: Order Comment: No: D o not add to previous draw Performed By: #### 2 5508, 07524, 03598, 70192, 37827 #### [facility] [address] [place] [id number], [facility] AST [Catalytic activity/Vol] 46 U/L High 13-39 [facility] Comment on above: Order Comment: No: D o not add to previous draw Performed By: #### 2 5508, 66096, 87493, 27509, 17477 #### [facility] [address] [place] [address], [facility] Bilirubin [Mass/Vol] 0.6 mg/dL Normal 0.3-1.0 [facility] Comment on above: Order Comment: No: D o not add to previous draw Performed By: #### 2 5508, 77997, 73874, 48398, 00589 #### [facility] [address] [place] [id number], [facility] Bilirubin.direct [Mass/Vol] 0.2 mg/dL Normal 0.0-0.2 [facility] Comment on above: Order Comment: No: D o not add to previous draw Performed By: #### 2 5508, 08582, 53745, 76624, 62371 #### [facility] [address] [place] [address], [place] Protein [Mass/Vol] 5.3 g/dL Low 6.0-8.3 [facility] Comment on above: Order Comment: No: D o not add to previous draw Performed By: #### 2 5508, 17190, 70270, 26589, 97988 #### [facility] [address] [facility] [place] [address], [facility] OSMOLALITY BLOODon Osmolality [Osmolality] 291 mosm/kg Normal 285-305 [facility] Comment on above: Order Comment: No: D o not add to previous draw Performed By: #### 2 5508, 52751, 91385, 31453, 31860 #### [facility] [address] [place] [address], [facility] TACROLIMUSon 08-14-2020 Tacrolimus (Bld) [Mass/Vol] 9.7 ng/mL Normal 5.0-20.0 [facility] Comment on above: Order Comment: Yes: Add to Previous draw if able Result Comment: The [employer] Tacrolimus assay is a delayed one-step immunoassay for the quantitative determination of tacrolimus in human whole blood using the chemiluminescent microparticle immunoassay (CMIA) technology with flexible assay protocols, referred to as Chemiflex. Performed By: #### 2 5508, 13694, 53791, 53497, 98778 #### [facility]. [address] Tacrolimus (Bld) [Mass/Vol] 5.7 ng/mL Normal 5.0-20.0 [facility] Comment on above: Order Comment: Yes: Add to Previous draw if able Result Comment: The [employer] Tacrolimus assay is a delayed one-step immunoassay for the quantitative determination of tacrolimus in human whole blood using the chemiluminescent microparticle immunoassay (CMIA) technology with flexible assay protocols, referred to as Chemiflex. Performed By: #### 2 5508, 12003, 49629, 81992, 48243 #### [facility] [address] [facility] [place] [address], [facility] COMP METABOLIC PANELon 08-12 Albumin [Mass/Vol] 3.2 g/dL Low 3.5-5.7 [facility] Comment on above: Order Comment: No: D o not add to previous draw Performed By: #### 2 5508, 65473, 81096, 97693, 33649 #### [facility] [address] [place] [address], [place] ALKALINE PHOSPH 89 IU/L Normal 34-104 [facility] Comment on above: Order Comment: No: D o not add to previous draw Performed By: #### 2 5508, 22848, 58785, 60847, 74591 #### [facility] [address] [place] [address], [place] ALT [Catalytic activity/Vol] 69 U/L High 7-52 [facility] Comment on above: Order Comment: No: D o not add to previous draw Performed By: #### 2 5508, 16549, 99904, 70976, 03073 #### [facility] [address] [place] [address], [place] AST [Catalytic activity/Vol] 54 U/L High 13-39 [facility] Comment on above: Order Comment: No: D o not add to previous draw Performed By: #### 2 5508, 95065, 83920, 83344, 77213 #### [facility] [address] [place] [address], [place] Bilirubin [Mass/Vol] 1.0 mg/dL Normal 0.3-1.0 [facility] Comment on above: Order Comment: No: D o not add to previous draw Performed By: #### 2 5508, 53456, 04376, 58798, 40178 #### [facility] [address] [place] [address], [place] Calcium [Mass/Vol] 8.8 mg/dL Normal 8.6-10.3 [facility] Comment on above: Order Comment: No: D o not add to previous draw Performed By: #### 2 5508, 38960, 64729, 21721, 22715 #### [facility] [address] [place] [address], [place] Chloride [Moles/Vol] 97 mmol/L Low 98-107 [facility] Comment on above: Order Comment: No: D o not add to previous draw Performed By: #### 2 5508, 58972, 30170, 85547, 03825 #### [facility] [address] [place] [address], [place] CO2 [Moles/Vol] 24 mmol/L Normal 21-31 [facility] Comment on above: Order Comment: No: D o not add to previous draw Performed By: #### 2 5508, 69663, 79785, 92020, 11454 #### [facility] [address] [place] [address], [place] Creatinine [Mass/Vol] 0.82 mg/dL Normal 0.70-1.30 [facility] Comment on above: Order Comment: No: D o not add to previous draw Performed By: #### 2 5508, 41286, 96081, 51243, 17403 #### [facility] [address] [place] [address], [place] GFR/1.73 sq M.predicted among blacks MDRD (S/P/Bld) [Vol rate/Area] mL/min/{1.73_m2} Normal >60 [facility] Comment on above: Order Comment: No: D o not add to previous draw Performed By: #### 2 5508, 37218, 64239, 44874, 05998 #### [facility] [address] [place] [address], [place] GFR/1.73 sq M.predicted among non-blacks MDRD (S/P/Bld) [Vol rate/Area] mL/min/{1.73_m2} Normal >60 [facility] Comment on above: Order Comment: No: D o not add to previous draw Performed By: #### 2 5508, 56995, 86544, 24240, 43741 #### [facility] [address] [place] [address], [place] Glucose [Mass/Vol] 154 mg/dL High 70-100 [facility] Comment on above: Order Comment: No: D o not add to previous draw Performed By: #### 2 5508, 89067, 90478, 02221, 12878 #### [facility] [address] [place] [address], [place] Potassium [Moles/Vol] 4.9 mmol/L Normal 3.5-5.1 [facility] Comment on above: Order Comment: No: D o not add to previous draw Performed By: #### 2 5508, 63095, 79627, 33995, 71420 #### [facility] [address] [place] [address], [place] Protein [Mass/Vol] 6.1 g/dL Normal 6.0-8.3 [facility] Comment on above: Order Comment: No: D o not add to previous draw Performed By: #### 2 5508, 57608, 98622, 31623, 83514 #### [facility] [address] [place] [address], [place] Sodium [Moles/Vol] 128 mmol/L Low 136-145 [facility] Comment on above: Order Comment: No: D o not add to previous draw Performed By: #### 2 5508, 77644, 63004, 54010, 31048 #### [facility] [address] [place] [address], [place] Urea nitrogen [Mass/Vol] 32 mg/dL High 7-25 [facility] Comment on above: Order Comment: No: D o not add to previous draw Performed By: #### 2 5508, 34747, 82399, 29579, 86189 #### [facility] [address] [place] [address], [place] OSMOLALITY URINEon 1 OSMOLALITY 857 mOsm/kg Normal 50-1400 [facility] Comment on above: Order Comment: No: D o not add to previous draw Performed By: #### 2 5508, 89331, 82610, 08419, 77229 #### [facility] [address] [place] [address], [facility] SODIUM URINE RANDOMon 2020 Sodium (U) [Moles/Vol] 51 mmol/L Normal [facility] Comment on above: Order Comment: No: D o not add to previous draw Result Comment: Ther e are no established reference values for random urine specimens Performed By: #### 2 5508, 62569, 46256, 55369, 15809 #### [facility] [address] [place] [address], [facility] TACROLIMUSon 08-12-2020 Tacrolimus (Bld) [Mass/Vol] 5.2 ng/mL Normal 5.0-20.0 [facility] Comment on above: Order Comment: Unkno wn Result Comment: The [employer] Tacrolimus assay is a delayed one-step immunoassay for the quantitative determination of tacrolimus in human whole blood using the chemiluminescent microparticle immunoassay (CMIA) technology with flexible assay protocols, referred to as Chemiflex. Performed By: #### 9 9914 ####[facility] [place] [address], [facility] BASIC METABOLIC PANELon 07-17 Calcium [Mass/Vol] 8.6 mg/dL Normal 8.6-10.3 [facility] Comment on above: Order Comment: No: D o not add to previous draw Performed By: #### 2 5508, 86228, 11310, 05432, 44315 #### [facility] [address] [facility] [place] [address], [facility] Chloride [Moles/Vol] 97 mmol/L Low 98-107 [facility] Comment on above: Order Comment: No: D o not add to previous draw Performed By: #### 2 5508, 21117, 17158, 94760, 09994 #### [facility] [address] [place] [address], [facility] CO2 [Moles/Vol] 23 mmol/L Normal 21-31 [facility] Comment on above: Order Comment: No: D o not add to previous draw Performed By: #### 2 5508, 93387, 18754, 69629, 17144 #### [facility] [address] [place] [address], [place] Creatinine [Mass/Vol] 0.82 mg/dL Normal 0.70-1.30 [facility] Comment on above: Order Comment: No: D o not add to previous draw Performed By: #### 2 5508, 49528, 84378, 47941, 22907 #### [facility] [address] [place] [address], [place] GFR/1.73 sq M.predicted among blacks MDRD (S/P/Bld) [Vol rate/Area] mL/min/{1.73_m2} Normal >60 [facility] Comment on above: Order Comment: No: D o not add to previous draw Performed By: #### 2 5508, 48995, 92126, 73301, 73017 #### [facility] [address] [place] [address], [place] GFR/1.73 sq M.predicted among non-blacks MDRD (S/P/Bld) [Vol rate/Area] mL/min/{1.73_m2} Normal >60 [facility] Comment on above: Order Comment: No: D o not add to previous draw Performed By: #### 2 5508, 95756, 15705, 38994, 61795 #### [facility] [address] [place] [address], [place] Glucose [Mass/Vol] 166 mg/dL High 70-100 [facility] Comment on above: Order Comment: No: D o not add to previous draw Performed By: #### 2 5508, 65454, 73955, 81450, 84708 #### [facility] [address] [place] [address], [place] Potassium [Moles/Vol] 4.9 mmol/L Normal 3.5-5.1 [facility] Comment on above: Order Comment: No: D o not add to previous draw Performed By: #### 2 5508, 65209, 70696, 69501, 13711 #### [facility] [address] [place] [address], [facility] Sodium [Moles/Vol] 127 mmol/L Low 136-145 [facility] Comment on above: Order Comment: No: D o not add to previous draw Performed By: #### 2 5508, 20449, 46398, 48725, 97295 #### [facility] [address] [place] [address], [facility] Urea nitrogen [Mass/Vol] 33 mg/dL High 7-25 [facility] Comment on above: Order Comment: No: D o not add to previous draw Performed By: #### 2 5508, 27752, 15087, 92773, 33174 #### [facility] [address] [place] [id number], [facility] CREATININE URINE RANDOMon Creatinine (U) [Mass/Vol] 59.0 mg/dL Normal [facility] Comment on above: Order Comment: Yes: Add to Previous draw if able Result Comment: Ther e are no established reference values for random urine specimens Performed By: #### 2 5508, 61556, 22699, 17990, 88987 #### [facility] [address] [place] [address], [facility] MAGNESIUM BLOODon 08-11-2020 Magnesium [Mass/Vol] 1.7 mg/dL Low 1.9-2.7 [facility] Comment on above: Order Comment: No: D o not add to previous draw Performed By: #### 2 5508, 56997, 51661, 58003, 04883 #### [facility] [address] [place] [address], [place] SODIUM URINE RANDOMon 2020 Sodium (U) [Moles/Vol] 90 mmol/L Normal [facility] Comment on above: Order Comment: Yes: Add to Previous draw if able Result Comment: Ther e are no established reference values for random urine specimens Performed By: #### 2 5508, 92157, 36269, 80944, 61517 #### [facility] [address] [place] [address], [facility] TACROLIMUSon 08-11-2020 Tacrolimus (Bld) [Mass/Vol] 6.3 ng/mL Normal 5.0-20.0 [facility] Comment on above: Order Comment: Yes: Add to Previous draw if able Result Comment: The [employer] Tacrolimus assay is a delayed one-step immunoassay for the quantitative determination of tacrolimus in human whole blood using the chemiluminescent microparticle immunoassay (CMIA) technology with flexible assay protocols, referred to as Chemiflex. Performed By: #### 2 5508, 19213, 21930, 53668, 30986 #### [facility] [address] [place] [address], [facility] BASIC METABOLIC PANELon 07-17 Calcium [Mass/Vol] 8.3 mg/dL Low 8.6-10.3 [facility] Comment on above: Order Comment: Yes: Add to Previous draw if able Performed By: #### 2 5508, 38471, 49615, 55946, 58039 #### [facility] [address] [place] [address], [facility] Chloride [Moles/Vol] 102 mmol/L Normal 98-107 [facility] Comment on above: Order Comment: Yes: Add to Previous draw if able Performed By: #### 2 5508, 94957, 17440, 69765, 81357 #### [facility] [address] [place] [address], [facility] CO2 [Moles/Vol] 20 mmol/L Low 21-31 [facility] Comment on above: Order Comment: Yes: Add to Previous draw if able Performed By: #### 2 5508, 22529, 28150, 51180, 57981 #### [facility] [address] [place] [address], [place] Creatinine [Mass/Vol] 0.78 mg/dL Normal 0.70-1.30 [facility] Comment on above: Order Comment: Yes: Add to Previous draw if able Performed By: #### 2 5508, 27214, 06490, 41205, 41354 #### [facility] [address] [place] [address], [place] GFR/1.73 sq M.predicted among blacks MDRD (S/P/Bld) [Vol rate/Area] mL/min/{1.73_m2} Normal >60 [facility] Comment on above: Order Comment: Yes: Add to Previous draw if able Performed By: #### 2 5508, 32864, 93306, 86981, 08273 #### [facility] [address] [place] [address], [place] GFR/1.73 sq M.predicted among non-blacks MDRD (S/P/Bld) [Vol rate/Area] mL/min/{1.73_m2} Normal >60 [facility] Comment on above: Order Comment: Yes: Add to Previous draw if able Performed By: #### 2 5508, 42389, 55770, 79071, 90299 #### [facility] [address] [place] [address], [place] Glucose [Mass/Vol] 199 mg/dL High 70-100 [facility] Comment on above: Order Comment: Yes: Add to Previous draw if able Performed By: #### 2 5508, 85741, 01117, 27463, 80950 #### [facility] [address] [place] [address], [place] Potassium [Moles/Vol] 4.9 mmol/L Normal 3.5-5.1 [facility] Comment on above: Order Comment: Yes: Add to Previous draw if able Performed By: #### 2 5508, 95990, 77821, 87221, 50949 #### [facility] [address] [place] [address], [place] Sodium [Moles/Vol] 129 mmol/L Low 136-145 [facility] Comment on above: Order Comment: Yes: Add to Previous draw if able Performed By: #### 2 5508, 65073, 94766, 18542, 91053 #### [facility] [address] [place] [address], [place] Urea nitrogen [Mass/Vol] 33 mg/dL High 7-25 [facility] Comment on above: Order Comment: Yes: Add to Previous draw if able Performed By: #### 2 5508, 80086, 67194, 35161, 71301 #### [facility] [address] [place] [address], [place] CBC COMPLETE BLOOD COUNTon - Erythrocyte distribution width (RBC) [Ratio] 12.9 % Normal 11.5-15.0 [facility] Comment on above: Order Comment: No: D o not add to previous draw Performed By: #### 6 1405 #### [facility] [address] [place] [address], [place] Hematocrit (Bld) [Volume fraction] 45.9 % Normal 39.0-50.0 [facility] Comment on above: Order Comment: No: D o not add to previous draw Performed By: #### 6 1405 #### [facility] [address] [place] [address], [place] Hemoglobin (Bld) [Mass/Vol] 15.3 g/dL Normal 13.0-17.0 [facility] Comment on above: Order Comment: No: D o not add to previous draw Performed By: #### 6 1405 #### [facility] [address] [place] [address], [place] MCH (RBC) [Entitic mass] 29.3 pg Normal 27.0-33.0 [facility] Comment on above: Order Comment: No: D o not add to previous draw Performed By: #### 6 1405 #### [facility] [address] [place] [address], [place] MCHC (RBC) [Mass/Vol] 33.3 g/dL Normal 32.0-35.0 [facility] Comment on above: Order Comment: No: D o not add to previous draw Performed By: #### 6 1405 #### [facility] [address] [place] [address], [facility] MCV (RBC) [Entitic vol] 87.8 fL Normal 82.0-98.0 [facility] Comment on above: Order Comment: No: D o not add to previous draw Performed By: #### 6 1405 #### [facility] [address] [place] [address], [facility] Nucleated RBC/100 WBC (Bld) [Ratio] 0 % Normal 0-0 [facility] Comment on above: Order Comment: No: D o not add to previous draw Performed By: #### 6 1405 #### [facility] [address] [facility] [place] [address], [facility] PLAT CNT 422 10*3/uL High 150-400 [facility] Comment on above: Order Comment: No: D o not add to previous draw Performed By: #### 6 1405 #### [facility] [address] [facility] [place] [address], [facility] RBC (Bld) [#/Vol] 5.23 10*6/uL Normal 4.20-5.70 [facility] Comment on above: Order Comment: No: D o not add to previous draw Performed By: #### 6 1405 #### [facility] [address] [facility] [place] [address], [facility] WBC (Bld) [#/Vol] 7.77 10*3/uL Normal 4.00-10.60 [facility] Comment on above: Order Comment: No: D o not add to previous draw Performed By: #### 6 1405 #### [facility] [address] [place] [address], [facility] MAGNESIUM BLOODon 08-10-2020 Magnesium [Mass/Vol] 1.7 mg/dL Low 1.9-2.7 [facility] Comment on above: Order Comment: Yes: Add to Previous draw if able Performed By: #### 2 5508, 86172, 67500, 27628, 130[address] #### [place] [address], [facility] PORTABLE CHEST 1 VIEWon 07-17 PORTABLE CHEST 1 VIEW [facility] Department of Radiology [address] [place] [id number] == Patient Name: VISHAL DUKE : 1960 Sex: M Age: Race: White Pt. Location: [id number] Patient Status: I Ordered Date: 08/10/2020 7:40:00 [...] pneumothorax. Electronically signed: Brett Mc. Transcribed by: [id number], User Resident: Electronically Signed by: BRETT MC @ 08/10/2020 10:10 AM Normal [facility] Comment on above: Order Comment: No: D o not add to previous draw CV'D BY [facility] AT 1240 TACROLIMUSon 08-10-2020 Tacrolimus (Bld) [Mass/Vol] 11.2 ng/mL Normal 5.0-20.0 [facility] Comment on above: Order Comment: No: D o not add to previous draw Result Comment: The [employer] Tacrolimus assay is a delayed one-step immunoassay for the quantitative determination of tacrolimus in human whole blood using the chemiluminescent microparticle immunoassay (CMIA) technology with flexible assay protocols, referred to as Chemiflex. Performed By: #### 2 5508, 51284, 62775, 33342, 04555 #### [facility] [address] [place] [address], [facility] TACROLIMUSon 08-09-2020 Tacrolimus (Bld) [Mass/Vol] 11.0 ng/mL Normal 5.0-20.0 [facility] Comment on above: Order Comment: Yes: Add to Previous draw if able Result Comment: The [employer] Tacrolimus assay is a delayed one-step immunoassay for the quantitative determination of tacrolimus in human whole blood using the chemiluminescent microparticle immunoassay (CMIA) technology with flexible assay protocols, referred to as Chemiflex. Performed By: #### 2 5508, 21542, 59316, 73418, 71991 #### [facility] [address] [place] [address], [facility] TROPONIN-Ion 08-09-2020 Troponin I.cardiac [Mass/Vol] 5.31 ng/mL Critically high 0.00-0.04 [facility] Comment on above: Order Comment: Yes: Add to Previous draw if able Result Comment: M-KS EVIOUS CRITICAL RESULT REFERENCE RANGES: 0.00 - 0.04 ng/ml NORMAL 0.05 - 0.50 ng/ml INDETERMINATE > 0.50 ng/ml CONSISTENT WITH AN M.I. Performed By: #### 2 5508, 50707, 74258, 95238, 26492 #### [facility] [address] UFH HEPARIN ASSAYon 08-10-19 21 UNFRACTIONATED HEPARIN <0.10 Critically low 0.30-0.70 [facility] Comment on above: Result Comment: Gabby roxaban and Apixaban will interfere with the anti Xa assay used to monitor UFH and LMWH. Results called. Accurately read back by Luiz Shaffer RN at 0709 Performed By: #### 3 0477 ####[facility] [address] COMP METABOLIC PANELon 08-08 Albumin [Mass/Vol] 2.8 g/dL Low 3.5-5.7 [facility] Comment on above: Order Comment: Yes: Add to Previous draw if able Performed By: #### 2 5508, 84810, 32641, 01287, 99422 #### [facility] [address] [place] [address], [facility] ALKALINE PHOSPH 70 IU/L Normal 34-104 [facility] Comment on above: Order Comment: Yes: Add to Previous draw if able Performed By: #### 2 5508, 92617, 86280, 20462, 48310 #### [facility] [address] [place] [id number], [place] ALT [Catalytic activity/Vol] 30 U/L Normal 7-52 [facility] Comment on above: Order Comment: Yes: Add to Previous draw if able Performed By: #### 2 5508, 14814, 20483, 40565, 13328 #### [facility] [address] [place] [id number], [facility] AST [Catalytic activity/Vol] 48 U/L High 13-39 [facility] Comment on above: Order Comment: Yes: Add to Previous draw if able Performed By: #### 2 5508, 65302, 37831, 79834, 21781 #### [facility] [address] [place] [address], [place] Bilirubin [Mass/Vol] 0.9 mg/dL Normal 0.3-1.0 [facility] Comment on above: Order Comment: Yes: Add to Previous draw if able Performed By: #### 2 5508, 79529, 22487, 45208, 20738 #### [facility] [address] [place] [address], [place] Calcium [Mass/Vol] 8.1 mg/dL Low 8.6-10.3 [facility] Comment on above: Order Comment: Yes: Add to Previous draw if able Performed By: #### 2 5508, 39366, 87560, 34658, 58346 #### [facility] [address] [place] [address], [place] Chloride [Moles/Vol] 104 mmol/L Normal 98-107 [facility] Comment on above: Order Comment: Yes: Add to Previous draw if able Performed By: #### 2 5508, 84806, 41805, 43181, 48000 #### [facility] [address] [place] [address], [place] CO2 [Moles/Vol] 19 mmol/L Low 21-31 [facility] Comment on above: Order Comment: Yes: Add to Previous draw if able Performed By: #### 2 5508, 98886, 50082, 38802, 27950 #### [facility] [address] [place] [address], [place] Creatinine [Mass/Vol] 0.92 mg/dL Normal 0.70-1.30 [facility] Comment on above: Order Comment: Yes: Add to Previous draw if able Performed By: #### 2 5508, 24042, 98839, 61360, 78538 #### [facility] [address] [place] [address], [place] GFR/1.73 sq M.predicted among blacks MDRD (S/P/Bld) [Vol rate/Area] mL/min/{1.73_m2} Normal >60 [facility] Comment on above: Order Comment: Yes: Add to Previous draw if able Performed By: #### 2 5508, 71867, 52540, 83605, 14133 #### [facility] [address] [place] [address], [place] GFR/1.73 sq M.predicted among non-blacks MDRD (S/P/Bld) [Vol rate/Area] mL/min/{1.73_m2} Normal >60 [facility] Comment on above: Order Comment: Yes: Add to Previous draw if able Performed By: #### 2 5508, 75410, 13330, 16678, 67891 #### [facility] [address] [place] [address], [place] Glucose [Mass/Vol] 159 mg/dL High 70-100 [facility] Comment on above: Order Comment: Yes: Add to Previous draw if able Performed By: #### 2 5508, 12978, 62442, 25291, 82881 #### [facility] [address] [place] [address], [place] Potassium [Moles/Vol] 5.2 mmol/L High 3.5-5.1 [facility] Comment on above: Order Comment: Yes: Add to Previous draw if able Performed By: #### 2 5508, 74990, 27801, 81316, 77247 #### [facility] [address] [place] [address], [place] Protein [Mass/Vol] 5.5 g/dL Low 6.0-8.3 [facility] Comment on above: Order Comment: Yes: Add to Previous draw if able Performed By: #### 2 5508, 37603, 85624, 98512, 65189 #### [facility] [address] Sodium [Moles/Vol] 133 mmol/L Low 136-145 [facility] Comment on above: Order Comment: Yes: Add to Previous draw if able Performed By: #### 2 5508, 33730, 80106, 00003, 37261 #### [facility] [address] Urea nitrogen [Mass/Vol] 35 mg/dL High 7-25 [facility] Comment on above: Order Comment: Yes: Add to Previous draw if able Performed By: #### 2 5508, 15463, 44372, 27499, 49966 #### [facility] [address] [facility] [address] TACROLIMUSon 08-08-2020 Tacrolimus (Bld) [Mass/Vol] 7.8 ng/mL Normal 5.0-20.0 [facility] Comment on above: Order Comment: Unkno wn Result Comment: The [employer] Tacrolimus assay is a delayed one-step immunoassay for the quantitative determination of tacrolimus in human whole blood using the chemiluminescent microparticle immunoassay (CMIA) technology with flexible assay protocols, referred to as Chemiflex. Performed By: #### 2 5508, 19393, 76306, 55741, 96983 #### [facility] [address] UFH HEPARIN ASSAYon 08-09-19 21 UNFRACTIONATED HEPARIN 0.74 IU/mL High 0.30-0.70 [facility] Comment on above: Result Comment: [place] roxaban and Apixaban will interfere with the anti Xa assay used to monitor UFH and LMWH. Performed By: #### 3 0477 ####[facility] C REACTIVE PROTEINon 021 CRP [Mass/Vol] 75.8 mg/L High 0.0-7.0 [facility] Comment on above: Order Comment: No: D o not add to previous draw CV'D BY IMM LAB AT 1240 Performed By: #### 6 1405 #### [facility] [address] [facility] [place] [address], [facility] SEDIMENTATION RATEon 021 SED RATE 30 mm/hr High 0-10 [facility] Comment on above: Order Comment: No: D o not add to previous draw Performed By: #### 6 1405 #### [facility] [address] [place] [address], [facility] TACROLIMUSon 08-07-2020 Tacrolimus (Bld) [Mass/Vol] 9.1 ng/mL Normal 5.0-20.0 [facility] Comment on above: Order Comment: Unkno wn Result Comment: The [employer] Tacrolimus assay is a delayed one-step immunoassay for the quantitative determination of tacrolimus in human whole blood using the chemiluminescent microparticle immunoassay (CMIA) technology with flexible assay protocols, referred to as Chemiflex. Performed By: #### 9 9914 #### [facility] [address] [facility] [place] [address], [facility] TROPONIN-Ion 08-07-2020 Troponin I.cardiac [Mass/Vol] 7.37 ng/mL Critically high 0.00-0.04 [facility] Comment on above: Order Comment: Yes: Add to Previous draw if able Result Comment: M-KS EVIOUS CRITICAL RESULT 42.94 REFERENCE RANGES: 0.00 - 0.04 ng/ml NORMAL 0.05 - 0.50 ng/ml INDETERMINATE > 0.50 ng/ml CONSISTENT WITH AN M.I. Performed By: #### 2 5508, 07509, 89502, 73306, 37625 #### [facility] [address] [facility] [address] UFH HEPARIN ASSAYon 08-08-19 UNFRACTIONATED HEPARIN 0.48 IU/mL Normal 0.30-0.70 [facility] Comment on above: Result Comment: [place] roxaban and Apixaban will interfere with the anti Xa assay used to monitor UFH and LMWH. Performed By: #### 3 0477 ####[facility] CBC COMPLETE BLOOD COUNTon 08-06-2020 Erythrocyte distribution width (RBC) [Ratio] 13.2 % Normal 11.5-15.0 [facility] Comment on above: Order Comment: Yes: Add to Previous draw if able Performed By: #### 2 5508, 17682, 52487, 46986, 53001 #### [facility] [address] Hematocrit (Bld) [Volume fraction] 44.8 % Normal 39.0-50.0 [facility] Comment on above: Order Comment: Yes: Add to Previous draw if able Performed By: #### 2 5508, 43854, 25717, 71246, 34373 #### [facility] [address] Hemoglobin (Bld) [Mass/Vol] 14.8 g/dL Normal 13.0-17.0 [facility] Comment on above: Order Comment: Yes: Add to Previous draw if able Performed By: #### 2 5508, 06525, 25332, 90489, 17305 #### [facility] [address] [place] [address], [facility] MCH (RBC) [Entitic mass] 29.0 pg Normal 27.0-33.0 [facility] Comment on above: Order Comment: Yes: Add to Previous draw if able Performed By: #### 2 5508, 24501, 33911, 88155, 23551 #### [facility] [address] [place] [id number], [facility] MCHC (RBC) [Mass/Vol] 33.0 g/dL Normal 32.0-35.0 [facility] Comment on above: Order Comment: Yes: Add to Previous draw if able Performed By: #### 2 5508, 42864, 35202, 21574, 68580 #### [facility] [address] [place] [address], [facility] MCV (RBC) [Entitic vol] 87.8 fL Normal 82.0-98.0 [facility] Comment on above: Order Comment: Yes: Add to Previous draw if able Performed By: #### 2 5508, 34949, 82210, 76891, 13547 #### [facility] [address] [place] [id number], [facility] Nucleated RBC/100 WBC (Bld) [Ratio] 0 % Normal 0-0 [facility] Comment on above: Order Comment: Yes: Add to Previous draw if able Performed By: #### 2 5508, 39543, 26517, 74373, 58774 #### [facility] [address] [place] [address], [facility] PLAT CNT 367 10*3/uL Normal 150-400 [facility] Comment on above: Order Comment: Yes: Add to Previous draw if able Performed By: #### 2 5508, 05557, 66142, 30368, 86908 #### [facility] [address] [place] [address], [facility] RBC (Bld) [#/Vol] 5.10 10*6/uL Normal 4.20-5.70 [facility] Comment on above: Order Comment: Yes: Add to Previous draw if able Performed By: #### 2 5508, 52840, 38010, 09087, 46687 #### [facility] [address] [place] [id number], [place] WBC (Bld) [#/Vol] 3.94 10*3/uL Low 4.00-10.60 [facility] Comment on above: Order Comment: Yes: Add to Previous draw if able Performed By: #### 2 5508, 61338, 62924, 99791, 90001 #### [facility] [address] [place] [address], [place] COMP METABOLIC PANELon 08-06 Albumin [Mass/Vol] 3.0 g/dL Low 3.5-5.7 [facility] Comment on above: Order Comment: No: D o not add to previous drawLABS DRAWN IN SAME HAND PAUSED IV. PT IS TO REMAIN FACE DOWN ONSTOMACH PER RN SO THAT IS THE ONLY PLACE WE CAN DRAW FROM RIGHT NOW. Performed By: #### 2 5508, 62091, 59016, 76839, 61752 #### [facility] [address] [place] [address], [facility] ALKALINE PHOSPH 74 IU/L Normal 34-104 [facility] Comment on above: Order Comment: No: D o not add to previous drawLABS DRAWN IN SAME HAND PAUSED IV. PT IS TO REMAIN FACE DOWN ONSTOMACH PER RN SO THAT IS THE ONLY PLACE WE CAN DRAW FROM RIGHT NOW. Performed By: #### 2 5508, 86627, 23354, 72857, 51337 #### [facility] [address] [place] [address], [facility] ALT [Catalytic activity/Vol] 42 U/L Normal 7-52 [facility] Comment on above: Order Comment: No: D o not add to previous drawLABS DRAWN IN SAME HAND PAUSED IV. PT IS TO REMAIN FACE DOWN ONSTOMACH PER RN SO THAT IS THE ONLY PLACE WE CAN DRAW FROM RIGHT NOW. Performed By: #### 2 5508, 73175, 04404, 63436, 66244 #### [facility] [address] [place] [address], [facility] AST [Catalytic activity/Vol] 112 U/L High 13-39 [facility] Comment on above: Order Comment: No: D o not add to previous drawLABS DRAWN IN SAME HAND PAUSED IV. PT IS TO REMAIN FACE DOWN ONSTOMACH PER RN SO THAT IS THE ONLY PLACE WE CAN DRAW FROM RIGHT NOW. Performed By: #### 2 5508, 17029, 99658, 45191, 36855 #### [facility] [address] [place] [address], [facility] Bilirubin [Mass/Vol] 1.4 mg/dL High 0.3-1.0 [facility] Comment on above: Order Comment: No: D o not add to previous drawLABS DRAWN IN SAME HAND PAUSED IV. PT IS TO REMAIN FACE DOWN ONSTOMACH PER RN SO THAT IS THE ONLY PLACE WE CAN DRAW FROM RIGHT NOW. Performed By: #### 2 5508, 25501, 08883, 98775, 33683 #### [facility] [address] [place] [address], [facility] Calcium [Mass/Vol] 8.3 mg/dL Low 8.6-10.3 [facility] Comment on above: Order Comment: No: D o not add to previous drawLABS DRAWN IN SAME HAND PAUSED IV. PT IS TO REMAIN FACE DOWN ONSTOMACH PER RN SO THAT IS THE ONLY PLACE WE CAN DRAW FROM RIGHT NOW. Performed By: #### 2 5508, 17438, 81518, 56298, 24707 #### [facility] [address] [place] [address], [facility] Chloride [Moles/Vol] 105 mmol/L Normal 98-107 [facility] Comment on above: Order Comment: No: D o not add to previous drawLABS DRAWN IN SAME HAND PAUSED IV. PT IS TO REMAIN FACE DOWN ONSTOMACH PER RN SO THAT IS THE ONLY PLACE WE CAN DRAW FROM RIGHT NOW. Performed By: #### 2 5508, 27605, 73306, 58058, 76017 #### [facility] [address] [place] [address], [facility] CO2 [Moles/Vol] 20 mmol/L Low 21-31 [facility] Comment on above: Order Comment: No: D o not add to previous drawLABS DRAWN IN SAME HAND PAUSED IV. PT IS TO REMAIN FACE DOWN ONSTOMACH PER RN SO THAT IS THE ONLY PLACE WE CAN DRAW FROM RIGHT NOW. Performed By: #### 2 5508, 52328, 40787, 14173, 79780 #### [facility] [address] [place] [address], [facility] Creatinine [Mass/Vol] 0.91 mg/dL Normal 0.70-1.30 [facility] Comment on above: Order Comment: No: D o not add to previous drawLABS DRAWN IN SAME HAND PAUSED IV. PT IS TO REMAIN FACE DOWN ONSTOMACH PER RN SO THAT IS THE ONLY PLACE WE CAN DRAW FROM RIGHT NOW. Performed By: #### 2 5508, 24982, 48143, 42536, 01369 #### [facility] [address] [place] [address], [facility] GFR/1.73 sq M.predicted among blacks MDRD (S/P/Bld) [Vol rate/Area] mL/min/{1.73_m2} Normal >60 [facility] Comment on above: Order Comment: No: D o not add to previous drawLABS DRAWN IN SAME HAND PAUSED IV. PT IS TO REMAIN FACE DOWN ONSTOMACH PER RN SO THAT IS THE ONLY PLACE WE CAN DRAW FROM RIGHT NOW. Performed By: #### 2 5508, 42073, 27443, 04905, 97495 #### [facility] [address] [place] [address], [facility] GFR/1.73 sq M.predicted among non-blacks MDRD (S/P/Bld) [Vol rate/Area] mL/min/{1.73_m2} Normal >60 [facility] Comment on above: Order Comment: No: D o not add to previous drawLABS DRAWN IN SAME HAND PAUSED IV. PT IS TO REMAIN FACE DOWN ONSTOMACH PER RN SO THAT IS THE ONLY PLACE WE CAN DRAW FROM RIGHT NOW. Performed By: #### 2 5508, 73421, 91529, 28401, 60280 #### [facility] [address] [place] [address], [facility] Glucose [Mass/Vol] 153 mg/dL High 70-100 [facility] Comment on above: Order Comment: No: D o not add to previous drawLABS DRAWN IN SAME HAND PAUSED IV. PT IS TO REMAIN FACE DOWN ONSTOMACH PER RN SO THAT IS THE ONLY PLACE WE CAN DRAW FROM RIGHT NOW. Performed By: #### 2 5508, 64579, 16606, 01746, 16725 #### [facility] [address] [place] [address], [facility] Potassium [Moles/Vol] 4.7 mmol/L Normal 3.5-5.1 [facility] Comment on above: Order Comment: No: D o not add to previous drawLABS DRAWN IN SAME HAND PAUSED IV. PT IS TO REMAIN FACE DOWN ONSTOMACH PER RN SO THAT IS THE ONLY PLACE WE CAN DRAW FROM RIGHT NOW. Performed By: #### 2 5508, 68015, 70175, 56677, 27256 #### [facility] [address] [place] [address], [facility] Protein [Mass/Vol] 5.8 g/dL Low 6.0-8.3 [facility] Comment on above: Order Comment: No: D o not add to previous drawLABS DRAWN IN SAME HAND PAUSED IV. PT IS TO REMAIN FACE DOWN ONSTOMACH PER RN SO THAT IS THE ONLY PLACE WE CAN DRAW FROM RIGHT NOW. Performed By: #### 2 5508, 08821, 19441, 43511, 52729 #### [facility] [address] [place] [address], [facility] Sodium [Moles/Vol] 136 mmol/L Normal 136-145 [facility] Comment on above: Order Comment: No: D o not add to previous drawLABS DRAWN IN SAME HAND PAUSED IV. PT IS TO REMAIN FACE DOWN ONSTOMACH PER RN SO THAT IS THE ONLY PLACE WE CAN DRAW FROM RIGHT NOW. Performed By: #### 2 5508, 58594, 39434, 74153, 07772 #### [facility] [address] [place] [address], [facility] Urea nitrogen [Mass/Vol] 28 mg/dL High 7-25 [facility] Comment on above: Order Comment: No: D o not add to previous drawLABS DRAWN IN SAME HAND PAUSED IV. PT IS TO REMAIN FACE DOWN ONSTOMACH PER RN SO THAT IS THE ONLY PLACE WE CAN DRAW FROM RIGHT NOW. Performed By: #### 2 5508, 56778, 43696, 16196, 75106 #### [facility] [address] [place] [address], [facility] TACROLIMUSon 08-06-2020 Tacrolimus (Bld) [Mass/Vol] 9.2 ng/mL Normal 5.0-20.0 [facility] Comment on above: Order Comment: Unkno wnLABS DRAWN IN SAME HAND PAUSED IV. PT IS TO REMAIN FACE DOWN ONSTOMACH PER RN SO THAT IS THE ONLY PLACE WE CAN DRAW FROM RIGHT NOW. Result Comment: The [employer] Tacrolimus assay is a delayed one-step immunoassay for the quantitative determination of tacrolimus in human whole blood using the chemiluminescent microparticle immunoassay (CMIA) technology with flexible assay protocols, referred to as Chemiflex. Performed By: #### 2 5508, 35782, 27391, 77434, 33197 #### [facility] [address] [place] [address], [facility] TROPONIN-Ion 08-06-2020 Troponin I.cardiac [Mass/Vol] 42.94 ng/mL Critically high 0.00-0.04 [facility] Comment on above: Result Comment: M-KS EVIOUS CRITICAL RESULT REFERENCE RANGES: 0.00 - 0.04 ng/ml NORMAL 0.05 - 0.50 ng/ml INDETERMINATE > 0.50 ng/ml CONSISTENT WITH AN M.I. Performed By: #### 2 5508, 94604, 58454, 16641, 04503 #### [facility] [address] [place] [address], [facility] Troponin I.cardiac [Mass/Vol] 46.69 ng/mL Critically high 0.00-0.04 [facility] Comment on above: Order Comment: No: D o not add to previous draw Result Comment: M-KS EVIOUS CRITICAL RESULT REFERENCE RANGES: 0.00 - 0.04 ng/ml NORMAL 0.05 - 0.50 ng/ml INDETERMINATE > 0.50 ng/ml CONSISTENT WITH AN M.I. Performed By: #### 3 5200 ####[facility] UFH HEPARIN ASSAYon 08-07-19 UNFRACTIONATED HEPARIN 0.34 IU/mL Normal 0.30-0.70 [facility] Comment on above: Order Comment: No: D o not add to previous draw Result Comment: [place] roxaban and Apixaban will interfere with the anti Xa assay used to monitor UFH and LMWH. Performed By: #### 6 1405 #### [facility] [address] CHLORIDE URon 08-05-2020 Chloride [Moles/Vol] 26.0 mmol/L Normal [facility] Comment on above: Order Comment: Yes: Add to Previous draw if able Result Comment: Ther e are no established reference values for random urine specimens Performed By: #### 2 5508, 92121, 28474, 47106, 70275 #### [facility] [address] [facility] [address] COMP METABOLIC PANELon 08-05 Albumin [Mass/Vol] 3.0 g/dL Low 3.5-5.7 [facility] Comment on above: Order Comment: Yes: Add to Previous draw if able Performed By: #### 2 5508, 29190, 78778, 52706, 90736 #### [facility] [address] [place] [address], [facility] ALKALINE PHOSPH 78 IU/L Normal 34-104 [facility] Comment on above: Order Comment: Yes: Add to Previous draw if able Performed By: #### 2 5508, 66966, 55216, 97036, 40078 #### [facility] [address] [place] [address], [facility] ALT [Catalytic activity/Vol] 35 U/L Normal 7-52 [facility] Comment on above: Order Comment: Yes: Add to Previous draw if able Performed By: #### 2 5508, 34724, 04653, 69983, 30791 #### [facility] [address] [place] [address], [facility] AST [Catalytic activity/Vol] 54 U/L High 13-39 [facility] Comment on above: Order Comment: Yes: Add to Previous draw if able Performed By: #### 2 5508, 90622, 24826, 88508, 68235 #### [facility] [address] [place] [address], [place] Bilirubin [Mass/Vol] 1.0 mg/dL Normal 0.3-1.0 [facility] Comment on above: Order Comment: Yes: Add to Previous draw if able Performed By: #### 2 5508, 69288, 14223, 41717, 15789 #### [facility] [address] [place] [address], [place] Calcium [Mass/Vol] 8.2 mg/dL Low 8.6-10.3 [facility] Comment on above: Order Comment: Yes: Add to Previous draw if able Performed By: #### 2 5508, 98784, 42926, 83738, 76617 #### [facility] [address] [place] [address], [place] Chloride [Moles/Vol] 105 mmol/L Normal 98-107 [facility] Comment on above: Order Comment: Yes: Add to Previous draw if able Performed By: #### 2 5508, 63736, 59747, 82302, 76776 #### [facility] [address] [place] [address], [place] CO2 [Moles/Vol] 19 mmol/L Low 21-31 [facility] Comment on above: Order Comment: Yes: Add to Previous draw if able Performed By: #### 2 5508, 40173, 49504, 29622, 23088 #### [facility] [address] [place] [address], [place] Creatinine [Mass/Vol] 0.89 mg/dL Normal 0.70-1.30 [facility] Comment on above: Order Comment: Yes: Add to Previous draw if able Performed By: #### 2 5508, 53503, 82183, 32990, 87222 #### [facility] [address] [place] [address], [place] GFR/1.73 sq M.predicted among blacks MDRD (S/P/Bld) [Vol rate/Area] mL/min/{1.73_m2} Normal >60 [facility] Comment on above: Order Comment: Yes: Add to Previous draw if able Performed By: #### 2 5508, 37912, 75508, 72713, 91071 #### [facility] [address] [place] [address], [place] GFR/1.73 sq M.predicted among non-blacks MDRD (S/P/Bld) [Vol rate/Area] mL/min/{1.73_m2} Normal >60 [facility] Comment on above: Order Comment: Yes: Add to Previous draw if able Performed By: #### 2 5508, 63623, 63217, 52351, 72848 #### [facility] [address] [place] [address], [place] Glucose [Mass/Vol] 174 mg/dL High 70-100 [facility] Comment on above: Order Comment: Yes: Add to Previous draw if able Performed By: #### 2 5508, 99837, 79332, 87525, 61830 #### [facility] [address] [place] [address], [place] Potassium [Moles/Vol] 4.9 mmol/L Normal 3.5-5.1 [facility] Comment on above: Order Comment: Yes: Add to Previous draw if able Performed By: #### 2 5508, 87581, 73406, 15436, 44534 #### [facility] [address] [place] [address], [place] Protein [Mass/Vol] 5.5 g/dL Low 6.0-8.3 [facility] Comment on above: Order Comment: Yes: Add to Previous draw if able Performed By: #### 2 5508, 82491, 46555, 97308, 46796 #### [facility] [address] [place] [address], [place] Sodium [Moles/Vol] 136 mmol/L Normal 136-145 [facility] Comment on above: Order Comment: Yes: Add to Previous draw if able Performed By: #### 2 5508, 07205, 07898, 39486, 96911 #### [facility] [address] [place] [address], [facility] Urea nitrogen [Mass/Vol] 35 mg/dL High 7-25 [facility] Comment on above: Order Comment: Yes: Add to Previous draw if able Performed By: #### 2 5508, 95647, 87572, 01918, 82683 #### [facility] [address] [place] [address], [facility] LIVER BATTERYon 08-05-2020 Albumin [Mass/Vol] 3.2 g/dL Low 3.5-5.7 [facility] Comment on above: Performed By: #### 2 5508, 56703, 61509, 75495, 09428 #### [facility] [address] [place] [address], [place] ALKALINE PHOSPH 84 IU/L Normal 34-104 [facility] Comment on above: Performed By: #### 2 5508, 08765, 80147, 77924, 80596 #### [facility] [address] [place] [address], [place] ALT [Catalytic activity/Vol] 40 U/L Normal 7-52 [facility] Comment on above: Performed By: #### 2 5508, 81314, 84934, 01658, 79294 #### [facility] [address] [place] [address], [place] AST [Catalytic activity/Vol] 36 U/L Normal 13-39 [facility] Comment on above: Performed By: #### 2 5508, 82636, 69322, 51264, 35697 #### [facility] [address] [place] [address], [facility] Bilirubin [Mass/Vol] 0.9 mg/dL Normal 0.3-1.0 [facility] Comment on above: Performed By: #### 2 5508, 45565, 19851, 16344, 59291 #### [facility] [address] [place] [address], [facility] Bilirubin.direct [Mass/Vol] 0.3 mg/dL High 0.0-0.2 [facility] Comment on above: Performed By: #### 2 5508, 37736, 45600, 84344, 00805 #### [facility] [address] [place] [address], [facility] Protein [Mass/Vol] 5.9 g/dL Low 6.0-8.3 [facility] Comment on above: Performed By: #### 2 5508, 31634, 80664, 10228, 31840 #### [facility] [address] [facility] [place] [place] [address] [place] [address] PORTABLE CHEST 1 VIEW 07-17 PORTABLE CHEST 1 VIEW [facility] Department of Radiology [address] [place] [id number] == Patient Name: VISHAL DUKE : 1960 Sex: M Age: Race: White Pt. Location: [id number] Patient Status: I Ordered Date: 08/05/2020 1:35:00 [...] reports Electronically signed: Mauricio Koo. Transcribed by: [email or web address], User Resident: ELADIA CABRERA Electronically Signed by: MAURICIO KOO @ 08/05/2020 02:08 AM I personally read this/these film(s) with this resident Normal [facility] Comment on above: Order Comment: Yes: Add to Previous draw if able POTASSIUM URon 08-05-2020 Potassium [Moles/Vol] 61.0 mmol/L Normal [facility] Comment on above: Order Comment: Yes: Add to Previous draw if able Result Comment: Ther e are no established reference values for random urine specimens Performed By: #### 2 5508, 76165, 84180, 04964, 67268 #### [facility] [address] [facility] [place] [address], [facility] PROCALCITONINon 08-05-2020 PROCALCITONIN 0.54 ng/mL High 0.00-0.10 [facility] Comment on above: Order Comment: Yes: Add [...] and initial PCT<0.5ng/mL Performed By: #### 2 5508, 81672, 72467, 86715, 45100 #### [facility] [address] [place] [address], [facility] SODIUM URINE RANDOMon 2020 Sodium (U) [Moles/Vol] 54 mmol/L Normal [facility] Comment on above: Order Comment: Yes: Add to Previous draw if able Result Comment: Ther e are no established reference values for random urine specimens Performed By: #### 2 5508, 54531, 03732, 44541, 83190 #### [facility] [address] [place] [address], [facility] TACROLIMUSon 08-05-2020 Tacrolimus (Bld) [Mass/Vol] 11.2 ng/mL Normal 5.0-20.0 [facility] Comment on above: Order Comment: Unkno wn Result Comment: The [employer] Tacrolimus assay is a delayed one-step immunoassay for the quantitative determination of tacrolimus in human whole blood using the chemiluminescent microparticle immunoassay (CMIA) technology with flexible assay protocols, referred to as Chemiflex. Performed By: #### 2 5508, 81931, 07460, 14605, 88971 #### [facility] [address] [place] [address], [facility] TROPONIN-Ion 08-05-2020 Troponin I.cardiac [Mass/Vol] 39.61 ng/mL Critically high 0.00-0.04 [facility] Comment on above: Order Comment: Yes: Add to Previous draw if able Result Comment: M-KS EVIOUS CRITICAL RESULT REFERENCE RANGES: 0.00 - 0.04 ng/ml NORMAL 0.05 - 0.50 ng/ml INDETERMINATE > 0.50 ng/ml CONSISTENT WITH AN M.I. Performed By: #### 2 5508, 54692, 61294, 17979, 41730 #### [facility] [address] [place] [address], [facility] Troponin I.cardiac [Mass/Vol] 36.67 ng/mL Critically high 0.00-0.04 [facility] Comment on above: Order Comment: No: D o not add to previous draw Result Comment: M-KS EVIOUS CRITICAL RESULT REFERENCE RANGES: 0.00 - 0.04 ng/ml NORMAL 0.05 - 0.50 ng/ml INDETERMINATE > 0.50 ng/ml CONSISTENT WITH AN M.I. Performed By: #### 2 5508, 79666, 62412, 26762, 19179 #### [facility] [address] [place] [address], [facility] Troponin I.cardiac [Mass/Vol] 2.03 ng/mL Critically high 0.00-0.04 [facility] Comment on above: Order Comment: Yes: Add to Previous draw if able Result Comment: M-TR OPONIN INITIAL CRITICAL HIGH; RESPUN AND RETESTED M-CRITICAL RESULT(S) REVIEWED, CALLED TO AND READ BACK BY ROSA M SANCRAINT RN AT 0902 REFERENCE RANGES: 0.00 - 0.04 ng/ml NORMAL 0.05 - 0.50 ng/ml INDETERMINATE > 0.50 ng/ml CONSISTENT WITH AN M.I. Performed By: #### 2 5508, 73099, 36514, 83078, 70939 #### [facility] [address] [place] [address], [facility] Troponin I.cardiac [Mass/Vol] 0.03 ng/mL Normal 0.00-0.04 [facility] Comment on above: Order Comment: Yes: Add to Previous draw if able Result Comment: REFE RENCE RANGES: 0.00 - 0.04 ng/ml NORMAL 0.05 - 0.50 ng/ml INDETERMINATE > 0.50 ng/ml CONSISTENT WITH AN M.I. Performed By: #### 2 5508, 74201, 53789, 39785, 28514 #### [facility] [address] UFH HEPARIN ASSAYon 08-06-19 UNFRACTIONATED HEPARIN 0.37 IU/mL Normal 0.30-0.70 [facility] Comment on above: Result Comment: [place] roxaban and Apixaban will interfere with the anti Xa assay used to monitor UFH and LMWH. Performed By: #### 3 0477 ####[facility] [address] UNFRACTIONATED HEPARIN 0.17 IU/mL Low 0.30-0.70 [facility] Comment on above: Result Comment: [place] roxaban and Apixaban will interfere with the anti Xa assay used to monitor UFH and LMWH. Performed By: #### 6 1405 #### [facility] [address] [place] [address], [facility] COMP METABOLIC PANELon 08-04 Albumin [Mass/Vol] 3.1 g/dL Low 3.5-5.7 [facility] Comment on above: Order Comment: Yes: Add to Previous draw if able Performed By: #### 2 0448, 76152, 88290, 25269, 02417 #### [facility] [address] [place] [address], [facility] ALKALINE PHOSPH 86 IU/L Normal 34-104 [facility] Comment on above: Order Comment: Yes: Add to Previous draw if able Performed By: #### 2 5508, 23283, 55331, 89840, 13483 #### [facility] [address] [place] [address], [place] ALT [Catalytic activity/Vol] 47 U/L Normal 7-52 [facility] Comment on above: Order Comment: Yes: Add to Previous draw if able Performed By: #### 2 5508, 71282, 46304, 29635, 52222 #### [facility] [address] [place] [address], [place] AST [Catalytic activity/Vol] 45 U/L High 13-39 [facility] Comment on above: Order Comment: Yes: Add to Previous draw if able Performed By: #### 2 5508, 70200, 55623, 10877, 81163 #### [facility] [address] [place] [address], [place] Bilirubin [Mass/Vol] 0.5 mg/dL Normal 0.3-1.0 [facility] Comment on above: Order Comment: Yes: Add to Previous draw if able Performed By: #### 2 5508, 01971, 96183, 89657, 51014 #### [facility] [address] [place] [address], [place] Calcium [Mass/Vol] 8.4 mg/dL Low 8.6-10.3 [facility] Comment on above: Order Comment: Yes: Add to Previous draw if able Performed By: #### 2 5508, 49653, 74715, 51464, 45067 #### [facility] [address] [place] [address], [place] Chloride [Moles/Vol] 102 mmol/L Normal 98-107 [facility] Comment on above: Order Comment: Yes: Add to Previous draw if able Performed By: #### 2 5508, 43938, 86954, 29085, 12585 #### [facility] [address] [place] [address], [place] CO2 [Moles/Vol] 24 mmol/L Normal 21-31 [facility] Comment on above: Order Comment: Yes: Add to Previous draw if able Performed By: #### 2 5508, 89135, 18786, 80160, 87938 #### [facility] [address] [place] [address], [place] Creatinine [Mass/Vol] 1.04 mg/dL Normal 0.70-1.30 [facility] Comment on above: Order Comment: Yes: Add to Previous draw if able Performed By: #### 2 5508, 37826, 72812, 50277, 15914 #### [facility] [address] [place] [address], [place] GFR/1.73 sq M.predicted among blacks MDRD (S/P/Bld) [Vol rate/Area] mL/min/{1.73_m2} Normal >60 [facility] Comment on above: Order Comment: Yes: Add to Previous draw if able Performed By: #### 2 5508, 66416, 48413, 07652, 22765 #### [facility] [address] [place] [address], [place] GFR/1.73 sq M.predicted among non-blacks MDRD (S/P/Bld) [Vol rate/Area] mL/min/{1.73_m2} Normal >60 [facility] Comment on above: Order Comment: Yes: Add to Previous draw if able Performed By: #### 2 5508, 23081, 84440, 62444, 03761 #### [facility] [address] [place] [address], [place] Glucose [Mass/Vol] 196 mg/dL High 70-100 [facility] Comment on above: Order Comment: Yes: Add to Previous draw if able Performed By: #### 2 5508, 04059, 93055, 70064, 54874 #### [facility] [address] [place] [address], [place] Potassium [Moles/Vol] 4.6 mmol/L Normal 3.5-5.1 [facility] Comment on above: Order Comment: Yes: Add to Previous draw if able Performed By: #### 2 5508, 86976, 50299, 50719, 34426 #### [facility] [address] [place] [address], [place] Protein [Mass/Vol] 5.8 g/dL Low 6.0-8.3 [facility] Comment on above: Order Comment: Yes: Add to Previous draw if able Performed By: #### 2 5508, 43127, 21386, 92598, 43916 #### [facility] [address] [place] [address], [place] Sodium [Moles/Vol] 135 mmol/L Low 136-145 [facility] Comment on above: Order Comment: Yes: Add to Previous draw if able Performed By: #### 2 5508, 15949, 22370, 85478, 65209 #### [facility] [address] [place] [address], [place] Urea nitrogen [Mass/Vol] 38 mg/dL High 7-25 [facility] Comment on above: Order Comment: Yes: Add to Previous draw if able Performed By: #### 2 5508, 96662, 28145, 51602, 40180 #### [facility] [address] [place] [address], [place] CPKon 08-04-2020 CK [Catalytic activity/Vol] 80 U/L Normal 30-223 [facility] Comment on above: Performed By: #### 2 5508, 13699, 89830, 44895, 55910 #### [facility] [address] [place] [address], [place] LDH BLOODon 08-04-2020 LDH 569 Units/L High 140-271 [facility] Comment on above: Performed By: #### 2 5508, 86333, 89503, 08747, 31959 #### [facility] [address] [place] [address], [facility] MAGNESIUM BLOODon 08-04-2020 Magnesium [Mass/Vol] 2.3 mg/dL Normal 1.9-2.7 [facility] Comment on above: Performed By: #### 2 5508, 87265, 55343, 34274, 06504 #### [facility] [address] [facility] TACROLIMUSon 08-04-2020 Tacrolimus (Bld) [Mass/Vol] 17.4 ng/mL Normal 5.0-20.0 [facility] Comment on above: Order Comment: Yes: Add to Previous draw if able Result Comment: The [employer] Tacrolimus assay is a delayed one-step immunoassay for the quantitative determination of tacrolimus in human whole blood using the chemiluminescent microparticle immunoassay (CMIA) technology with flexible assay protocols, referred to as Chemiflex. Performed By: #### 2 5508, 08581, 84981, 77547, 07374 #### [facility] [address] [facility] TROPONIN-Ion 08-04-2020 Troponin I.cardiac [Mass/Vol] 0.01 ng/mL Normal 0.00-0.04 [facility] Comment on above: Result Comment: REFE RENCE RANGES: 0.00 - 0.04 ng/ml NORMAL 0.05 - 0.50 ng/ml INDETERMINATE > 0.50 ng/ml CONSISTENT WITH AN M.I. Performed By: #### 2 5508, 31044, 17061, 19028, 04908 #### [facility] [address] [facility] *SARS-CoV-2 COVID-19on 08-03 SARS-CoV-2 (COVID-19) RNA ADELINE+probe Ql (Unsp spec) Detected Critically abnormal Not Detected [facility] Comment on above: Result Comment: Call ed Lara Reid on 08-03 at 1020. Performed By: #### 2 5508, 10436, 30172, 87943, 97136 #### [facility] [address] [place] [address], [place] BASIC METABOLIC PANELon 07-16 Calcium [Mass/Vol] 8.4 mg/dL Low 8.6-10.3 [facility] Comment on above: Order Comment: No: D o not add to previous draw Pt in bath room askme to come back Performed By: #### 3 5200 #### [facility] [address] [place] [address], [place] Chloride [Moles/Vol] 97 mmol/L Low 98-107 [facility] Comment on above: Order Comment: No: D o not add to previous draw Pt in bath room askme to come back Performed By: #### 3 5200 #### [facility] [address] [place] [address], [place] CO2 [Moles/Vol] 22 mmol/L Normal 21-31 [facility] Comment on above: Order Comment: No: D o not add to previous draw Pt in bath room askme to come back Performed By: #### 3 5200 #### [facility] [address] [place] [address], [place] Creatinine [Mass/Vol] 0.90 mg/dL Normal 0.70-1.30 [facility] Comment on above: Order Comment: No: D o not add to previous draw Pt in bath room askme to come back Performed By: #### 3 5200 #### [facility] [address] [place] [address], [place] GFR/1.73 sq M.predicted among blacks MDRD (S/P/Bld) [Vol rate/Area] mL/min/{1.73_m2} Normal >60 [facility] Comment on above: Order Comment: No: D o not add to previous draw Pt in bath room askme to come back Performed By: #### 3 5200 #### [facility] [address] [place] [address], [facility] GFR/1.73 sq M.predicted among non-blacks MDRD (S/P/Bld) [Vol rate/Area] mL/min/{1.73_m2} Normal >60 [facility] Comment on above: Order Comment: No: D o not add to previous draw Pt in bath room askme to come back Performed By: #### 3 5200 #### [facility] [address] [place] [address], [facility] Glucose [Mass/Vol] 167 mg/dL High 70-100 [facility] Comment on above: Order Comment: No: D o not add to previous draw Pt in bath room askme to come back Performed By: #### 3 5200 #### [facility] [address] [place] [address], [facility] Potassium [Moles/Vol] 4.4 mmol/L Normal 3.5-5.1 [facility] Comment on above: Order Comment: No: D o not add to previous draw Pt in bath room askme to come back Performed By: #### 3 5200 #### [facility] [address] [place] [address], [place] Sodium [Moles/Vol] 131 mmol/L Low 136-145 [facility] Comment on above: Order Comment: No: D o not add to previous draw Pt in bath room askme to come back Performed By: #### 3 5200 #### [facility] [address] [place] [address], [place] Urea nitrogen [Mass/Vol] 22 mg/dL Normal 7-25 [facility] Comment on above: Order Comment: No: D o not add to previous draw Pt in bath room askme to come back Performed By: #### 3 5200 #### [facility] [address] [place] [address], [facility] CBC W/DIFFon 08-03-2020 ABS IMM GRANS 0.1 10*3/uL Normal 0.0-0.2 [facility] Comment on above: Order Comment: No: D o not add to previous draw Performed By: #### 6 1405 #### [facility] [address] [place] [address], [facility] ABS NEUTROPHILS 4.8 10*3/uL Normal 1.6-7.6 [facility] Comment on above: Order Comment: No: D o not add to previous draw Performed By: #### 6 1405 #### [facility] [address] [place] [address], [facility] Basophils (Bld) [#/Vol] 0.0 10*3/uL Normal 0.0-0.2 [facility] Comment on above: Order Comment: No: D o not add to previous draw Performed By: #### 6 1405 #### [facility] [address] [place] [address], [facility] Basophils/100 WBC (Bld) 0.4 % Normal 0.0-1.0 [facility] Comment on above: Order Comment: No: D o not add to previous draw Performed By: #### 6 1405 #### [facility] [address] [place] [address], [facility] Eosinophils (Bld) [#/Vol] 0.0 10*3/uL Normal 0.0-0.5 [facility] Comment on above: Order Comment: No: D o not add to previous draw Performed By: #### 6 1405 #### [facility] [address] [facility] [place] [address], [facility] Eosinophils/100 WBC (Bld) 0.0 % Normal 0.0-6.0 [facility] Comment on above: Order Comment: No: D o not add to previous draw Performed By: #### 6 1405 #### [facility] [address] [facility] [place] [address], [facility] Erythrocyte distribution width (RBC) [Ratio] 13.6 % Normal 11.5-15.0 [facility] Comment on above: Order Comment: No: D o not add to previous draw Performed By: #### 6 1405 #### [facility] [address] [place] [id number], [facility] Hematocrit (Bld) [Volume fraction] 45.6 % Normal 39.0-50.0 [facility] Comment on above: Order Comment: No: D o not add to previous draw Performed By: #### 6 1405 #### [facility] [address] [place] [address], [facility] Hemoglobin (Bld) [Mass/Vol] 15.9 g/dL Normal 13.0-17.0 [facility] Comment on above: Order Comment: No: D o not add to previous draw Performed By: #### 6 1405 #### [facility] [address] [facility] [address], [facility] IMMATURE GRANS 0.9 % Normal 0.0-1.0 [facility] Comment on above: Order Comment: No: D o not add to previous draw Performed By: #### 6 1405 #### [facility] [address] [place] [address], [facility] Lymphocytes (Bld) [#/Vol] 0.4 10*3/uL Low 1.2-4.0 [facility] Comment on above: Order Comment: No: D o not add to previous draw Performed By: #### 6 1405 #### [facility] [address] [place] [address], [facility] Lymphocytes/100 WBC (Bld) 7.1 % Low 20.0-45.0 [facility] Comment on above: Order Comment: No: D o not add to previous draw Performed By: #### 6 1405 #### [facility] [address] [place] [address], [facility] MCH (RBC) [Entitic mass] 29.5 pg Normal 27.0-33.0 [facility] Comment on above: Order Comment: No: D o not add to previous draw Performed By: #### 6 1405 #### [facility] [address] [place] [id number], [facility] MCHC (RBC) [Mass/Vol] 34.9 g/dL Normal 32.0-35.0 [facility] Comment on above: Order Comment: No: D o not add to previous draw Performed By: #### 6 1405 #### [facility] [address] [place] [address], [facility] MCV (RBC) [Entitic vol] 84.6 fL Normal 82.0-98.0 [facility] Comment on above: Order Comment: No: D o not add to previous draw Performed By: #### 6 1405 #### [facility] [address] [place] [address], [facility] Monocytes (Bld) [#/Vol] 0.2 10*3/uL Normal 0.1-1.0 [facility] Comment on above: Order Comment: No: D o not add to previous draw Performed By: #### 6 1405 #### [facility] [address] [place] [address], [facility] MONOS 4.2 % Low 5.0-12.0 [facility] Comment on above: Order Comment: No: D o not add to previous draw Performed By: #### 6 1405 #### [facility] [address] [place] [address], [facility] Neutrophils/100 WBC (Bld) 87.4 % High 40.0-72.0 [facility] Comment on above: Order Comment: No: D o not add to previous draw Performed By: #### 6 1405 #### [facility] [address] [place] [address], [facility] Nucleated RBC/100 WBC (Bld) [Ratio] 0 % Normal 0-0 [facility] Comment on above: Order Comment: No: D o not add to previous draw Performed By: #### 6 1405 #### [facility] [address] [place] [address], [facility] PLAT CNT 286 10*3/uL Normal 150-400 [facility] Comment on above: Order Comment: No: D o not add to previous draw Performed By: #### 6 1405 #### [facility] [address] [facility] [place] [address], [facility] RBC (Bld) [#/Vol] 5.39 10*6/uL Normal 4.20-5.70 [facility] Comment on above: Order Comment: No: D o not add to previous draw Performed By: #### 6 1405 #### [facility] [address] [facility] [address], [facility] WBC (Bld) [#/Vol] 5.47 10*3/uL Normal 4.00-10.60 [facility] Comment on above: Order Comment: No: D o not add to previous draw Performed By: #### 6 1405 #### [facility] [address] [facility]. [address] CPKon 08-03-2020 CK [Catalytic activity/Vol] 168 U/L Normal 30-223 [facility] Comment on above: Order Comment: No: D o not add to previous draw Pt in bath room askme to come back Performed By: #### 3 5200 #### [facility] [address] [facility]. [address] D DIMER TESTon 08-03-2020 D-DIMER TEST 5.09 mcg/mL FEU High 0.27-0.49 [facility] Comment on above: Order Comment: No: D [...] AND CONFIRMED Performed By: #### 5 3629 ####[facility] [place] [address], [facility] FERRITINon 08-03-2020 Ferritin [Mass/Vol] 1079 ng/mL High 24-336 [facility] Comment on above: Order Comment: No: D o not add to previous draw Pt in bath room askme to come back Performed By: #### 3 5200 #### [facility] [address] [place] [address], [facility] LDH BLOODon 08-03-2020 LDH 623 Units/L High 140-271 [facility] Comment on above: Order Comment: No: D o not add to previous draw Pt in bath room askme to come back Performed By: #### 3 5200 #### [facility] [address] [place] [address], [facility] LIVER BATTERYon 08-03-2020 Albumin [Mass/Vol] 3.6 g/dL Normal 3.5-5.7 [facility] Comment on above: Order Comment: Yes: Add to Previous draw if able Performed By: #### 2 5508, 28731, 80563, 46601, 76176 #### [facility] [address] [place] [address], [facility] ALKALINE PHOSPH 91 IU/L Normal 34-104 [facility] Comment on above: Order Comment: Yes: Add to Previous draw if able Performed By: #### 2 5508, 57262, 22396, 66806, 14179 #### [facility] [address] [place] [address], [facility] ALT [Catalytic activity/Vol] 34 U/L Normal 7-52 [facility] Comment on above: Order Comment: Yes: Add to Previous draw if able Performed By: #### 2 5508, 59674, 48463, 77938, 67395 #### [facility] [address] [place] [address], [facility] AST [Catalytic activity/Vol] 40 U/L High 13-39 [facility] Comment on above: Order Comment: Yes: Add to Previous draw if able Performed By: #### 2 5508, 82042, 47308, 92303, 53691 #### [facility] [address] [place] [address], [place] Bilirubin [Mass/Vol] 0.7 mg/dL Normal 0.3-1.0 [facility] Comment on above: Order Comment: Yes: Add to Previous draw if able Performed By: #### 2 5508, 80017, 45761, 05498, 27016 #### [facility] [address] [place] [address], [facility] Bilirubin.direct [Mass/Vol] 0.1 mg/dL Normal 0.0-0.2 [facility] Comment on above: Order Comment: Yes: Add to Previous draw if able Performed By: #### 2 5508, 26297, 27619, 89160, 77681 #### [facility] [address] [place] [address], [facility] Protein [Mass/Vol] 6.3 g/dL Normal 6.0-8.3 [facility] Comment on above: Order Comment: Yes: Add to Previous draw if able Performed By: #### 2 5508, 81386, 87467, 36549, 02229 #### [facility] [address] [place] [address], [place] MAGNESIUM BLOODon 08-03-2020 Magnesium [Mass/Vol] 2.3 mg/dL Normal 1.9-2.7 [facility] Comment on above: Order Comment: No: D o not add to previous draw Pt in bath room askme to come back Performed By: #### 3 5200 #### [facility] [address] [place] [address], [place] PHOSPHORUS BLOODon Phosphate [Mass/Vol] 3.6 mg/dL Normal 2.5-5.0 [facility] Comment on above: Order Comment: No: D o not add to previous draw Pt in bath room askme to come back Performed By: #### 3 5200 #### [address] PORTABLE CHEST 1 VIEWon 07-16 PORTABLE CHEST 1 VIEW [facility] Department of Radiology [address] [place] [id number] == Patient Name: VISHAL DUKE : 1960 Sex: M Age: Race: White Pt. Location: [id number] Patient Status: I Ordered Date: 08/03/2020 8:00:00 [...] pneumonia. Electronically signed: Dariela Vincent. Transcribed by: [email or web address], User Resident: Electronically Signed by: DARIELA VINCENT @ 08/03/2020 07:52 AM Normal [facility] Comment on above: Order Comment: No: D o not add to previous draw CV'D BY IMM LAB AT 1240 PROCALCITONINon 08-03-2020 PROCALCITONIN 0.31 ng/mL High 0.00-0.10 [facility] Comment on above: Order Comment: No: D [...] and initial PCT<0.5ng/mL Performed By: #### 2 7618, 64461, 75673, 30864, 87851 #### [facility] [address] [place] [address], [facility] TACROLIMUSon 08-03-2020 Tacrolimus (Bld) [Mass/Vol] 24.9 ng/mL High 5.0-20.0 [facility] Comment on above: Order Comment: Yes: Add to Previous draw if able Result Comment: The [employer] Tacrolimus assay is a delayed one-step immunoassay for the quantitative determination of tacrolimus in human whole blood using the chemiluminescent microparticle immunoassay (CMIA) technology with flexible assay protocols, referred to as Chemiflex. Performed By: #### 2 5508, 14898, 91274, 99196, 00174 #### [facility] [address] TROPONIN-Ion 08-03-2020 Troponin I.cardiac [Mass/Vol] 0.01 ng/mL Normal 0.00-0.04 [facility] Comment on above: Order Comment: No: D o not add to previous draw Pt in bath room askme to come back Result Comment: REFE RENCE RANGES: 0.00 - 0.04 ng/ml NORMAL 0.05 - 0.50 ng/ml INDETERMINATE > 0.50 ng/ml CONSISTENT WITH AN M.I. Performed By: #### 3 5200 #### [facility] [address] URINALYSIS REFLEXon 08-04-19 21 Appearance (U) CLEAR Normal CLEAR [facility] Comment on above: Order Comment: No: D o not add to previous draw CV'D BY IMM LAB AT 1240 Performed By: #### 6 1405 #### [facility] [address] [place] [address], [facility] Bilirubin Ql (U) Negative Normal NEGATIVE [facility] Comment on above: Order Comment: No: D o not add to previous draw CV'D BY IMM LAB AT 1240 Performed By: #### 6 1405 #### [facility] [address] [place] [address], [facility] Color (U) YELLOW Normal YELLOW [facility] Comment on above: Order Comment: No: D o not add to previous draw CV'D BY IMM LAB AT 1240 Performed By: #### 6 1405 #### [facility] [address] [place] [address], [place] EPIS NONE SEEN Normal FEW,OCC,NONE SEEN [facility] Comment on above: Order Comment: No: D o not add to previous draw CV'D BY IMM LAB AT 1240 Performed By: #### 6 1405 #### [facility] [address] [place] [address], [place] Glucose Ql (U) Negative Normal NEGATIVE [facility] Comment on above: Order Comment: No: D o not add to previous draw CV'D BY IMM LAB AT 1240 Performed By: #### 6 1405 #### [facility] [address] [place] [address], [place] Hemoglobin Ql (U) TRACE, RESULTS CHECKED Abnormal NEGATI VE [facility] Comment on above: Order Comment: No: D o not add to previous draw CV'D BY IMM LAB AT 1240 Performed By: #### 6 1405 #### [facility] [address] [place] [address], [place] KETONE Negative Normal NEGATIVE [facility] Comment on above: Order Comment: No: D o not add to previous draw CV'D BY IMM LAB AT 1240 Performed By: #### 6 1405 #### [facility] [address] [place] [address], [place] LEUK MARIA A Negative Normal NEGATIVE [facility] Comment on above: Order Comment: No: D o not add to previous draw CV'D BY IMM LAB AT 1240 Performed By: #### 6 1405 #### [facility] [address] [place] [address], [place] Nitrite Ql (U) Negative Normal NEGATIVE [facility] Comment on above: Order Comment: No: D o not add to previous draw CV'D BY IMM LAB AT 1240 Performed By: #### 6 1405 #### [facility] [address] [place] [address], [place] pH (U) 6.0 [pH] Normal 5.0-8.0 [facility] Comment on above: Order Comment: No: D o not add to previous draw CV'D BY IMM LAB AT 1240 Performed By: #### 6 1405 #### [facility] [address] [place] [address], [facility] Protein Ql (U) Negative Normal NEGATIVE [facility] Comment on above: Order Comment: No: D o not add to previous draw CV'D BY IMM [facility] AT 1240 Performed By: #### 6 1405 #### [facility] [address] [place] [address], [facility] RBC 3-5 Abnormal NONE SEEN [facility] Comment on above: Order Comment: No: D o not add to previous draw CV'D BY IMM LAB AT 1240 Performed By: #### 6 1405 #### [facility] [address] [place] [address], [facility] SPEC GRAV 1.017 Normal 1.015-1.020 [facility] Comment on above: Order Comment: No: D o not add to previous draw CV'D BY IMM LAB AT 1240 Performed By: #### 6 1405 #### [facility] [address] [place] [address], [facility] WBC UA 0-2 Abnormal NONE SEEN [facility] Comment on above: Order Comment: No: D o not add to previous draw CV'D BY IMM LAB AT [facility] Performed By: #### 6 1405 #### [facility] [address] [place] [address], [facility] Vital Signs Date Time Vital Sign Value Performing Clinician Faci lity 01-17-2022 11:53-0400 Blood Pressure Location Reji BROWER [facility] 01-17-2022 11:53-0400 Diastolic blood pressure 81 mm[Hg] Reji BROWER [facility] 01-17-2022 11:53-0400 Heart rate 63 /min Reji BROWER [facility] 01-17-2022 11:53-0400 Respiratory rate 18 /min Reji BROWER [facility] 01-17-2022 11:53-0400 Systolic blood pressure 129 mm[Hg] Reji BROWER [facility] 04-23-2021 17:40-0500 Diastolic blood pressure 70 mm[Hg] Rosa M Gonzales Work Phone: [facility] DO Work Phone: 04-23-2021 17:40-0500 Systolic blood pressure 138 mm[Hg] Rosa M Gonzales Work Phone: [facility] DO Work Phone: 04-23-2021 15:22-0500 Body height 180.34 cm Rosa M Gonzales Work Phone: [facility] DO Work Phone: 04-23-2021 15:22-0500 Body mass index (BMI) [Ratio] 29.57 kg/m2 Rosa M Gonzales Work Phone: [facility] 250 DO Work Phone: 04-23-2021 15:22-0500 Body surface area Derived from formula 2.16 m2 Rosa M Gonzales Work Phone: [facility] 250 DO Work Phone: 04-23-2021 15:22-0500 Body weight 96.16 kg Rosa M Gonzales Work Phone: [facility] 250 DO Work Phone: 04-23-2021 15:22-0500 Diastolic blood pressure 77 mm[Hg] Rosa M Farrell Janet Work Phone: [facility] 250 DO Work Phone: 04-23-2021 15:22-0500 Heart rate 61 /min Rosa M Farrell Janet Work Phone: [facility] DO Work Phone: 04-23-2021 15:22-0500 Systolic blood pressure 142 mm[Hg] Rosa M Farrell Janet Work Phone: [facility] DO Work Phone: Encounters Encounter Date Encounter Type Care Provider Facility Start: 05-18-2023 End: 05-18-2023 ambulatory [facility] Start: 05-01-2023 End: 05-01-2023 ambulatory ALICIA ADAME Not Available Start: 04-26-2023 End: 04-26-2023 [facility] 03-28-2023 ambulatory PETEY REDDING [facility] Start: 02-09-2023 End: 02-09-2023 ambulatory [facility] Start: 02-02-2023 ambulatory Xochilt Graham Facility:[facility] Start: 01-24-2023 End: 01-25-2023 Evaluation and management of inpatient [facility] Start: 01-06-2023 End: 01-07-2023 ambulatory [facility] Start: 12-22-2022 End: 12-22-2022 ambulatory [facility] Start: 12-05-2022 End: 12-05-2022 [facility] Start: 11-15-2022 End: 11-16-2022 ambulatory SHAUN CASTANON [facility] Start: 10-26-2022 End: 10-26-2022 ambulatory TEAGAN MENDEZO [facility] Start: 10-24-2022 End: 10-24-2022 ambulatory MADIE [facility] Start: 09-27-2022 End: 09-27-2022 ambulatory PETEY LEATHA [facility] Start: 09-06-2022 End: 09-07-2022 ambulatory [facility] Start: 09-01-2022 End: 09-02-2022 ambulatory SHARLA [facility] Start: 08-19-2022 End: 08-20-2022 ambulatory MADIE [facility] Start: 08-18-2022 End: 08-19-[address] DOCTOR MEYER Facility:[facility] Start: 07-29-2022 End: 07-29-2022 ambulatory [facility]EL[facility] Start: 07-19-2022 End: 07-20-[address] DOCTOR MEYER Facility:[facility] Start: 06-16-2022 End: 06-16-2022 ambulatory BOBBY MALDONADO [facility] Start: 06-01-2022 End: 06-02-[address] DOCTOR MEYER Facility:[facility] Start: 05-30-2022 End: 05-31-[address] AIME VILLASENOR Facility:[facility] Start: 05-03-2022 End: 05-04-[address] DOCTOR MEYER Facility:[facility] Start: 04-14-2022 End: 04-15-[address] DOCTOR MEYER Facility:[facility] Start: 03-25-2022 End: 03-26-[address] ROSA M GONZALES Facility:[facility] Start: 02-24-2022 End: 02-25-[address] DOCTOR MEYER Facility:[facility] Start: 01-17-2022 End: 01-17-2022 Patient encounter procedure Reji BROWER [facility] Start: 09-28-2021 End: 09-29-[address] FEDERICO CHESTER Facility:[facility] Start: 05-15-2021 End: 06-07-2021 ambulatory ROSA M GONZALES Facility:[facility] Start: 04-23-2021 Office outpatient vi sit 25 minutes Rosa M Gonzales Work Phone: [facility] DO Work Phone: Start: 12-02-2020 End: 12-04-2020 Evaluation and management of inpatient YONAS DUNNUR Facility:[facility] Start: 12-01-2020 End: 12-01-2020 Emergency department patient visit REFERRED SELF Facility:[facility] Start: 10-29-2020 End: 10-30-2020 ambulatory ROSA M GONZALES Facility:[facility] Start: 08-02-2020 End: 08-19-2020 Evaluation and management of inpatient JUAN FERREIRA Facility:[facility] Procedures Date Procedure Procedure Detail Performing Clinician Start: 12-03-2020 INTRODUCTION OF OTHE R GAS INTO RESP TRACT, VIA OPENING YONAS HERRERA Start: 08-03-2020 INTRODUCE REMDESIVIR IN PERIP VEIN, PERC, NEW TECH 5 YOJANA N HORANI Start: 08-03-2020 INTRODUCTION OF OTHE R GAS INTO RESP TRACT, VIA OPENING YOJANA N HORANI Start: 01-01-2018 Transplant of kidney Pa blancarita LEONARDA Comment on above: Pt has three kidneys [...] renal transplant Renal transplant recipient Rosa M Gonzaels Work Phone: History of renal transplant Kidney transplanted( Confirmed ) Reji BROWER Insertion of pacemak er pulse generator Rosa M Gonzales Work Phone: Placement of stent i n cardiac conduit Reji BROWER Total colonoscopy Rosa M Jami Gonzales Work Phone: Transplant of kidney Lisaadrianne jami Gonzales Work Phone: Immunizations Immunization Date Immunization Notes Care Provider Maribel moore 02-01-2021 Seasonal, quadrivale nt, recombinant, injectable influenza vaccine, preservative free Rosa M Farrell Janet Work Phone: [facility] 250 DO Work Phone: 01-06-2021 Moderna COVID-19 Vac cine 100 MCG/0.5ML Intramuscular Suspension Rosa M Jami Gonzales Work Phone: [facility] 250 DO Work Phone: 07-10-2020 Moderna COVID-19 Vac cine 100 MCG/0.5ML Intramuscular Suspension Rosa M Farrell Janet Work Phone: [facility] 250 DO Work Phone: 06-12-2020 Moderna COVID-19 Vac cine 100 MCG/0.5ML Intramuscular Suspension Rosa M Elian Work Phone: [facility] 250 DO Work Phone: 01-27-2020 influenza, seasonal, injectable Rosa M R Janet Work Phone: [facility] 250 DO Work Phone: 01-16-2020 influenza virus vacc ine, unspecified formulation Rosa M Jami Gonzales Work Phone: [facility] 250 DO Work Phone: 02-05-2019 Seasonal, quadrivale nt, recombinant, injectable influenza vaccine, preservative free Rosa M R Janet Work Phone: [facility] 250 DO Work Phone: 05-11-2018 influenza, injectabl e, quadrivalent, preservative free Rosa M R Janet Work Phone: [place] [address] DO Work Phone: 02-16-2018 influenza, injectabl e, quadrivalent, preservative free Rosa M R Janet Work Phone: [place] [address] DO Work Phone: 06-08-2017 influenza, injectabl e, quadrivalent, preservative free Rosa M R Janet Work Phone: [place] [address] DO Work Phone: 12-16-2016 influenza, injectabl e, quadrivalent, contains preservative Rosa M R Janet Work Phone: [place] [address] DO Work Phone: 01-28-2015 influenza, seasonal, injectable Rosa M R Janet Work Phone: [place] [address] DO Work Phone: 04-27-2012 influenza virus vacc ine, whole virus Rosa M Gonzales Work Phone: [place] [address] DO Work Phone: Payers Date Payer Category Payer Medicare [id number] 1960 Unknown [id number] 2.16.8 [id number] 1960 Unknown [id number] 2.16.8 [id number] 1960 Unknown [id number] 2.16.8 [id number] 1960 Unknown [id number] 2.16.8 [id number] 1960 Unknown [id number] 2.16.8 [id number] 1960 Unknown [id number] 2.16.84 [id number] 1960 Unknown [id number] 2.16.84 [id number] 1960 Unknown [id number] 2.16.84 [id number] 1960 Unknown [id number] 2.16.84 [id number] 1960 Unknown [id number] 2.16.84 [id number] 1960 Unknown [id number] 2.16.84 [id number] 1960 Unknown [id number] 2.16.84 [id number] 1960 Unknown [id number] 2.16.84 [id number] 1960 Unknown [id number] 2.16.84 [id number] 1960 Unknown [id number] 2.16.84 [id number] 1959 Medicare [id number] 1959 Private Health Insurance [id number] Unknown Social History Date Type Detail Facility No alcohol use No alcohol use [facility] DO Work Phone: Comment on above: 1-2 cups of coffee d aily.; Quit in 2008; Start: 01-01-2020 Tobacco smoking status Ex-smoker (fi nding) [facility] Sex Assigned At Male [facility] Functional Status Date Assessment Result Facility 01-17-2022 Functional Status N/A [facility] Clinical Notes 08-20-2020 to 05-18-2023 Note Date & Type Note Facility 05-18-2023 Note 05/18/23 I called the pt and explained that his tac level resulted today was high at 11.6. The pt said yes I saw that. I verified pt current dose of tac as 1 mg in the am and 0.5 mg in the pm, pt stated yes. I told the pt here is the plan, hold your evening tac dose today. The tomorrow start new dose of 0.5 in the morning and 0.5 in the evening. The pt repeated the new dose. I asked the pt to check his tac level in 1 week. Pt verbalized understanding of the dose change. [facility] 05-18-2023 Note 05/18/23 DD Renal transplant on (08/15/2017) by Dr. Marquez. CMV +/-. History of PKD. Patient has recent history of an CA and had Pacer/Defib Placed. Vishal Duke is a 62 y.o. male who End-stage renal disease secondary to Polycystic Kidneys who underwent donor kidney transplant on 08/15/2017 (Kidney). Pt is s/p bilateral nephrectomy by Dr Maldondao on 01/24/23 HPI: Patient is a 62 y.o. male presenting to the clinic for a follow-up appointment. Patient is 3 months s/p bilateral nephrectomy performed on 01/24/23. He states that he is able to bend over. Patient notes occasional back pains, but denies any concerns. He denies any fevers, chills, nausea, vomiting, CP, abd pain, and SOB. Patient reports no problems with urination while standing, but reports that he is experiencing problems with sitting down. He states that he has an enlarged prostate. Patient states that he has a follow-up with urology and does not need any current intervention for urinary symptoms. IPSS Questionnaire (AUA-7): Over the past month??? 1) How often have you had a sensation of not emptying your bladder completely after you finish urinating? 0 - Not at all 2) How often have you had to urinate again less than two hours after you finished urinating? 2 - Less than half the time 3) How often have you found you stopped and started again several times when you urinated? 5 - Almost always 4) How difficult have you found it to postpone urination? 2 - Less than half the time 5) How often have you had a weak urinary stream? 1 - Less than 1 time in 5 6) How often have you had to push or strain to begin urination? 1 - Less than 1 time in 5 7) How many times did you most typically get up to urinate from the time you went to bed until the time you got up in the morning? 3 - 3 times Total score: 14 moderately symptomatic Quality of Life: 2 (mostly satisfied) Pt presents for office visit. Current IS: TAC 1mg in am and 0.5mg pm Myfortic 540mg BID Prednisone 5mg every day DSA: 12/22/2022 no DSA No Known Allergies Medication Documentation Review Audit Reviewed by Cierra Danielson MA (Sales Marketing Coordinator) on 05/18/23 at 1014 Medication Order Taking? Sig Documenting Provider Last Dose Status albuterol (ProAir HFA) 90 mcg/actuation inhaler [id number] Yes Inhale 2 puffs every 4 (four) hours if needed for wheezing or shortness of breath. Laney Busch MD Taking Active aspirin 81 mg EC tablet [id number] Yes Take 81 mg by mouth in the morning. Historical ProviderMD Taking Active atorvastatin (Lipitor) 80 mg tablet [id number] Yes Take 1 tablet (80 mg) by mouth at bedtime. Federico Chester MD Taking Active clopidogrel (Plavix) 75 mg tablet [id number] Yes Take 1 tablet (75 mg) by mouth in the morning. Federico Chester MD Taking Active empagliflozin (Jardiance) 10 mg [id number] Yes Take 1 tablet (10 mg) by mouth once daily as directed. Federico Chester MD Taking Active esomeprazole (NexIUM) [address] capsule [id number] Yes Take 1 capsule (40 mg) by mouth before breakfast. Do not open capsule. Federico Chester MD Taking Active famotidine (Pepcid) 20 mg tablet [id number] No Take 20 mg by mouth in the morning and at bedtime. Historical ProviderMD Not Taking Flag for Review isosorbide mononitrate ER (Imdur) 60 mg 24 hr tablet [id number] Yes Take 1 tablet (60 mg) by mouth in the morning. Do not crush or chew. Federico Chester MD Taking Active lisinopril 5 mg tablet [id number] Yes Take 1 tablet (5 mg) by mouth in the morning. Federico Chester MD Taking Active magnesium oxide (Mag-Ox) 400 mg tablet [id number] Yes 400 mg in the morning. Take 3 tablets Historical ProviderMD Taking Differently Active methocarbamol (Robaxin) 500 mg tablet [id number] Take 1 tablet (500 mg) by mouth if needed in the morning, at noon, and at bedtime for muscle spasms for up to 5 days. Patient not taking: Reported on 02/09/2023 Amelia Olson MD 01/30/232358 metoprolol succinate XL (Toprol-XL) 200 mg 24 hr tablet [id number] Yes Take 1 tablet (200 mg) by mouth once daily as directed. Do not crush or chew. Federico Chester MD Taking Active mycophenolate (Myfortic) 180 mg EC tablet [id number] Yes Take 3 tablets (540 mg) by mouth in the morning and at bedtime. Petey Redding NP Taking Active nitroglycerin (Nitrostat) 0.4 mg SL tablet [id number] Yes Place 0.4 mg under the tongue every 5 (five) minutes if needed for chest pain. Historical ProviderMD Taking Active predniSONE (Deltasone) 5 mg tablet [id number] Yes Take 5 mg by mouth in the morning. Historical ProviderMD Taking Differently Active ranolazine (Ranexa) 500 mg 12 hr tablet Yes Take 1 tablet (500 mg) by mouth in the morning and at bedtime. Do not crush, chew, or split. Federico Chester MD Taking Active tacrolimus (Prograf) 0.5 mg capsule [id number] Yes Take 1 capsule (0.5 mg) by mouth in the morning. TDD 1.5mg Patient taking differently: Take 0.5 mg by mouth once daily in the evening. TDD (more content not included)... [facility] 03-29-2023 Note Patient's tac level of 9.[address] Basurto and he just wants to watch it no medication change. Maria G Mayberry, TATO [facility] 03-28-2023 Note 03/28/23 Chief Complaint Patient presents with Kidney Follow-up Patient have no concerns PCP: Rosa M Gonzales MD Txp Referring: Preferred Pharmacy: [id number] - [place], [place] - [address] [facility] [address] [place] [address] Subjective Visit Vitals BP 111/61 Pulse 60 Wt 90.3 kg (199 lb) BMI 27.75 kg/m??? Smoking Status Former BSA 2.13 m??? No Known Allergies Medication Documentation Review Audit Reviewed by Tim Foy MA (Sales Marketing Coordinator) on 03/28/23 at 0912 Medication Order Taking? Sig Documenting Provider Last Dose Status albuterol (ProAir HFA) 90 mcg/actuation inhaler [id number] Yes Inhale 2 puffs every 4 (four) hours if needed for wheezing or shortness of breath. Laney Busch MD Taking Active aspirin 81 mg EC tablet [id number] Yes Take 81 mg by mouth in the morning. Historical Provider, Taking Active atorvastatin (Lipitor) 80 mg tablet [id number] Yes Take 1 tablet (80 mg) by mouth at bedtime. Federico Chester MD Taking Active clopidogrel (Plavix) 75 mg tablet [id number] Yes Take 1 tablet (75 mg) by mouth in the morning. Federico Chester MD Taking Active empagliflozin (Jardiance) 10 mg [id number] Yes Take 1 tablet (10 mg) by mouth once daily as directed. Federico Chester MD Taking Active esomeprazole (NexIUM) [address] capsule [id number] Yes Take 1 capsule (40 mg) by mouth before breakfast. Do not open capsule. Federico Chester MD Taking Active famotidine (Pepcid) 20 mg tablet [id number] Yes Take 20 mg by mouth in the morning and at bedtime. Historical Provider, Taking Active isosorbide mononitrate ER (Imdur) 60 mg 24 hr tablet [id number] Yes Take 1 tablet (60 mg) by mouth in the morning. Do not crush or chew. Federico Chester MD Taking Active lisinopril 5 mg tablet [id number] Yes Take 1 tablet (5 mg) by mouth in the morning. Federico Chester MD Taking Active magnesium oxide (Mag-Ox) 400 mg tablet [id number] Yes 400 mg in the morning. Historical Provider, Taking Active methocarbamol (Robaxin) 500 mg tablet [id number] Take 1 tablet (500 mg) by mouth if needed in the morning, at noon, and at bedtime for muscle spasms for up to 5 days. Patient not taking: Reported on 02/09/2023 Amelia Olson MD 01/30/23 2359 metoprolol succinate XL (Toprol-XL) 200 mg 24 hr tablet [id number] Yes Take 1 tablet (200 mg) by mouth once daily as directed. Do not crush or chew. Federico Chester MD Taking Active mycophenolate (Myfortic) 180 mg EC tablet [id number] Yes Take 3 tablets (540 mg) by mouth in the morning and at bedtime. Bobby Maldonado MD Taking Active nitroglycerin (Nitrostat) 0.4 mg SL tablet [id number] Yes Place 0.4 mg under the tongue every 5 (five) minutes if needed for chest pain. Historical Provider, Taking Active predniSONE (Deltasone) 5 mg tablet [id number] Yes Take 5 mg by mouth every other day. Historical Provider, Taking Active ranolazine (Ranexa) 500 mg 12 hr tablet [id number] Yes Take 1 tablet (500 mg) by mouth in the morning and at bedtime. Do not crush, chew, or split. 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 Coronary artery disease involving [place] coronary artery of [place] heart with unstable angina pectoris ([facility]) Gastroesophageal reflux disease Hypertension End-stage renal disease ([facility]) Coronary atherosclerosis Hyperkalemia History of kidney disease Gouty arthropathy Hypervitaminosis A Increased infection risk status post immunosuppressive therapy Lower urinary tract symptoms due to benign prostatic hyperplasia Male hypogonadism Hyperlipidemia Microscopic hematuria Mixed hyperlipidemia Myocardial infarction ([facility]) Neuropathy Nocturia Renal failure Pyelonephritis Pseudophakia PCO (posterior capsular opacification), right Stage 4 chronic kidney disease ([facility]) Stage 3 chronic kidney disease ([facility]) Upper respiratory infection Status post insertion of drug-eluting stent into left anterior descending (LAD) artery for coronary artery disease Ventricular tachycardia ([facility] (more content not included)... [facility] 03-08-2023 Note New standing lab ord er placed in intraoffice mail today to go out> [facility] 03-08-2023 Note New standing lab ord er placed in today's outgoing mail. Following call from clinic MERCEDES Lion that pt is @ [facility] for lab draws, faxed to [phone] new order and requested [facility] fax all lab results to [facility] as last monthly lab results were received November 2022. Pt notified order sent & mailed and to contact [facility] monthly when labs are completed to confirm receipt or have testing @ [facility]. He acknowledged. Encouraged to FU next week with [facility]. [facility] 03-01-2023 Note Patient called sweetie calvo his repeat tac level still 3.6 in his My Chart, we do not have results yet.. Patient will increase by 0.5 mg in the morning, now on 1 mg in am and 0.5 mg in afternoon of prograf. He will repeat level in one week. [facility] 02-21-2023 Note Per franchesca at Dr serrano an office, incisional culture came back positive pseudomonis, suseptable to Cipro 500 mg BID x [address] Maldonado notified. [facility] 02-17-2023 Note Patient called to re port that he finished antibiotic for incision infection and was told looking better and they did take sample to send for culture. [facility] 02-09-2023 Note Patient states he wi ll repeat his tac level as not a true 12 hour trough, he did not take yesterday yoselin dose. [facility] 02-09-2023 Note 02/08/23 DD Renal transplant on (08/15/2017) by Dr. Marquez. CMV +/-. Patient has recent history of an CA and had Pacer/Defib Placed. Patient here for follow up Nephrectomy Patient states he is feeling good with a 21 pound weight loss since bilat [place] kidney's removed. He states that he currently [...] Medication Documentation Review Audit Reviewed by Jaqui Colorado RN (Registered Nurse) on 01/25/23 at 1404 Medication Order Taking? Sig Documenting Provider Last Dose Status albuterol (ProAir HFA) 90 mcg/actuation inhaler [id number] Yes Inhale 2 puffs every 4 (four) hours if needed for wheezing or shortness of breath. Laney Busch MD 01/24/202330 Active aspirin 81 mg EC tablet [id number] Yes Take 81 mg by mouth in the morning. Makayla Gates MD 01/24/202330 Active atorvastatin (Lipitor) 80 mg tablet [id number] Yes Take 1 tablet (80 mg) by mouth at bedtime. Federico Chester MD 01/23/2023 2100 Active clopidogrel (Plavix) 75 mg tablet [id number] Yes Take 1 tablet (75 mg) by mouth in the morning. Federico Chester MD Past Week Active empagliflozin (Jardiance) 10 mg [id number] Yes Take 1 tablet (10 mg) by mouth once daily as directed. Federico Chester MD 01/23/2023 0800 Active esomeprazole (NexIUM) [address] capsule [id number] Yes Take 1 capsule (40 mg) by mouth before breakfast. Do not open capsule. Federico Chester MD 01/24/2023529 Active famotidine (Pepcid) 20 mg tablet [id number] Yes Take 20 mg by mouth in the morning and at bedtime. Makayla Gates MD Past Month 529 Active isosorbide mononitrate ER (Imdur) 60 mg 24 hr tablet [id number] Yes Take 1 tablet (60 mg) by mouth in the morning. Do not crush or chew. Federico Chester MD 01/24/2023529 Active lisinopril 5 mg tablet [id number] Yes Take 1 tablet (5 mg) by mouth in the morning. Federico Chester MD 01/24/2023799 Active magnesium oxide (Mag-Ox) 400 mg tablet [id number] Yes 400 mg in the morning. Makayla Gates MD 01/24/2023529 Active metoprolol succinate XL (Toprol-XL) 200 mg 24 hr tablet Yes Take 1 tablet (200 mg) by mouth once daily as directed. Do not crush or chew. Federico Chester MD 01/24/2023529 Active mycophenolate (Myfortic) 180 mg EC tablet [id number] Yes Take 3 tablets (540 mg) by mouth in the morning and at bedtime. Bobby Maldonado MD 01/24/2023529 Active nitroglycerin (Nitrostat) 0.4 mg SL tablet [id number] Yes Place 0.4 mg under the tongue every 5 (five) minutes if needed for chest pain. Makayla Gates MD Past Month Active predniSONE (Deltasone) 5 mg tablet [id number] Yes Take 5 mg by mouth every other day. Makayla Gates MD 01/24/2023529 Active ranolazine (Ranexa) 500 mg 12 hr tablet Yes Take 1 tablet (500 mg) by mouth in the morning and at bedtime. Do not crush, chew, or split. Federico Chester MD 01/24/2023529 Active tacrolimus (Prograf) 0.5 mg capsule [id number] Yes tacrolimus 0.5 mg capsule, immediate-release TAKE 1 CAPSULE BY MOUTH TWICE DAILY Phoebe Culver MD 01/24/2023529 Active Immunization History Administered Date(s) Administered Unspecified Sars-Cov-2 Vaccination 12/30/2021 Patient Active Problem List Diagnosis Aftercare following organ transplant Kidney replaced by transplant Electrolyte abnormality Immunosuppression ([facility]) Polycystic kidney disease, autosomal dominant Elevated hemoglobin ([facility]) Other abnormality of red blood cells Post-COVID chronic dyspnea Chronic systolic congestive heart failure ([facility]) Active rickets Acute bronchitis Acute non-ST elevation myocardial infarction (NSTEMI) ([facility]) Age-related nuclear cataract of left eye 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 Coronary artery disease involving [place] coronary artery of [place] heart with unstable angina pectoris ([facility]) Gastroesophageal reflux disease Essential hypertension End-stage renal disease ([facility]) Coronary atherosclerosis Hyperkalemia History of kidney disease Gouty arthropathy Hypervitaminosis A Increased infection risk status post immunosuppressive therapy Lower urinary tract symptoms due to benign prostatic hyperplasia Male hypogonadism Hyperlipidemia Microscopic hematuria Mixed hyperlipidemia Myocardial infarction ([facility]) Neuropathy Nocturia Renal failure Pyelonephritis Pseudophakia PCO (posterior capsular opacification), right Stage 4 chronic kidney disease ([facility]) Stage 3 chronic kidney disease ([facility]) Upper respiratory infection Status post insertion of drug-eluting stent into left anterior descending (LAD) artery for cor (more content not included)... [facility] 01-25-2023 Note 01/25/23 1022 Admission Assessment Questions [...] Discharge? Yes Does the patient have a rn case management assigned to them through their insurance? No [...] activate MyChart? Yes Home once medically ready [facility] 01-25-2023 Note Attestation signed by Bobby Maldonado MD at 01/30/2023 8:04 PM By using [...] be an additional personal documentation from me. [facility] Department of Urology DAILY PROGRESS NOTE Subjective [...] 100 mL/hr, Last Rate: 100 mL/hr (01/25/23 0433) Imaging: CT abdomen pelvis wo IV contrast [...] appear stable. The adrenal glands appear stable. [place] kidneys are diffusely replaced by cystic change. [...] is unchanged. Impress (more content not included)... [facility] 01-25-2023 Note Patient: Vishal felix Procedure Summary Date: 01/24/23 Room / Location: [facility] OPERATING ROOM 13 / [facility] Operating Room Anesthesia Start: 755 Anesthesia Stop: 173 Procedure: NEPHRECTOMY, ROBOT-ASSISTED (Bilateral: Abdomen) Diagnosis: PKD (polycystic kidney disease) (PKD (polycystic kidney disease) [Q61.3]) Surgeons: Bobby Maldonado MD Responsible Provider: Shaan Dawson MD Anesthesia [...] per anesthesia protocol. No notable events documented. [facility] 01-24-2023 Note Patient: Vishal felix Procedure Summary Date: 01/24/23 Room / Location: [facility] OPERATING ROOM 13 / [facility] Operating Room Anesthesia Start: 0756 Anesthesia Stop: Procedure: NEPHRECTOMY, ROBOT-ASSISTED (Bilateral: Abdomen) Diagnosis: PKD (polycystic kidney disease) (PKD (polycystic kidney disease) [Q61.3]) Surgeons: Bobby Maldonado MD Responsible Provider: Shaan Dawson MD Anesthesia Type: general ASA Status: 4 Anesthesia Post Transport Note Transport to: PACU O2 Route: room air Patient Monitor: direct observation Transport: uneventful Patient condition is: stable Comments: Patient was able to respond and follow verbal commands throughout transport process [facility] 01-24-2023 Note Airway Date/Time: 01/24/2023 8:14 AM Urgency: elective Airway not difficult General Information and Staff Patient location during procedure: OR Resident/BENZENE WASHER/CAA: Nicola Roblero MD Performed: resident/BENZENE WASHER/CAA Learner assisted: ASHLI Rowland Indications and Patient [...] 22 Number of attempts at approach: 1 [facility] 01-24-2023 Note Arterial Line: Date/Time: 01/24/2023 8:22 [...] complications. Additional notes: Under GA Staffing Performed: resident/BENZENE WASHER/CAA Resident/BENZENE WASHER: Nicola Roblero MD Performed by: Nicola Roblero MD Authorized by: Shaan Dawson MD [facility] 01-24-2023 Note Patient: Vishal felix Procedure Information Date/Time: 01/24/23729 Procedure: NEPHRECTOMY, ROBOT-ASSISTED possible bilateral (Right) Location: [facility] OPERATING ROOM 13 / [facility] Operating Room Surgeons: Bobby Maldonado MD Relevant Problems Anesthesia (-) History of anesthesia complications Cardio METs > 4 without CP, has ARRIETA and requires 2L n/c O2 supp at baseline, h/o CABG 2008, Stent in left anterior descending (LAD) artery in October 2016, pacemaker defibrillator implantation concern of cardiac arrest with v-fib April 2021 (+) Chronic systolic congestive heart failure (CMS/HCC) (+) Coronary artery disease involving [place] coronary artery of [place] heart with unstable angina pectoris (CMS/HCC) (+) [...] Plan discussed with attending. Additional Equipment Requests [facility] 01-12-[address] Maldonado , now need to do phlebotomy for recent of hematocrit 50.8 and HGB of 16.4. Dr Maldonado waits until hematocrit is 55 and hgb closer to 17. Patient will be having nephrectomy 01/24/23 and will repeat labs then. [facility] 12-22-2022 Note 12/22/22 PCP: Rosa M Gonzales MD Txp Referring: Preferred Pharmacy: [id number] - [place], [place] - [address] [place] [address] Subjective Visit Vitals BP 136/77 Pulse 60 Wt 95.6 kg (210 lb 11.2 oz) BMI 30.23 kg/m??? Smoking Status Former BSA 2.17 m??? No Known Allergies Medication Documentation Review Audit Reviewed by Tim Foy MA (Sales Marketing Coordinator) on 12/22/22 at 0857 Medication Order Taking? Sig Documenting Provider Last Dose Status albuterol (ProAir HFA) 90 mcg/actuation inhaler [id number] Yes Inhale 2 puffs every 4 (four) hours if needed for wheezing or shortness of breath. Laney Busch MD Taking Active aspirin 81 mg EC tablet [id number] Yes Take 81 mg by mouth in the morning. Historical Provider, Taking Active atorvastatin (Lipitor) 80 mg tablet [id number] Yes Take 1 tablet (80 mg) by mouth at bedtime. Federico Chester MD Taking Active clopidogrel (Plavix) 75 mg tablet [id number] Yes Take 1 tablet (75 mg) by mouth in the morning. Federico Chester MD Taking Active empagliflozin (Jardiance) 10 mg [id number] Yes Take 1 tablet (10 mg) by mouth once daily as directed. Federico Chester MD Taking Active esomeprazole (NexIUM) [address] capsule [id number] Yes Take 1 capsule (40 mg) by mouth before breakfast. Do not open capsule. Federico Chester MD Taking Active famotidine (Pepcid) 20 mg tablet [id number] Yes Take 20 mg by mouth in the morning and at bedtime. Historical Provider, Taking Active isosorbide mononitrate ER (Imdur) 30 mg 24 hr tablet [id number] Yes Take 1 tablet (30 mg) by mouth once daily as directed. Do not crush or chew. Federico Chester MD Taking Active isosorbide mononitrate ER (Imdur) 60 mg 24 hr tablet Yes Take 1 tablet (60 mg) by mouth in the morning. Do not crush or chew. Federico Chester MD Taking Active lisinopril 5 mg tablet [id number] Yes Take 1 tablet (5 mg) by mouth in the morning. Federico Chester MD Taking Active magnesium oxide (Mag-Ox) 400 mg tablet [id number] Yes 400 mg in the morning. Historical ProviderMD Taking Active metoprolol succinate XL (Toprol-XL) 200 mg 24 hr tablet Yes Take 1 tablet (200 mg) by mouth once daily as directed. Do not crush or chew. Federico Chester MD Taking Active mycophenolate (Myfortic) 180 mg EC tablet [id number] Yes Take 540 mg by mouth in the morning and at bedtime. Historical ProviderMD Taking Active nitroglycerin (Nitrostat) 0.4 mg SL tablet [id number] Yes Place 0.4 mg under the tongue every 5 (five) minutes if needed for chest pain. Historical ProviderMD Taking Active predniSONE (Deltasone) 5 mg tablet [id number] Yes Take 5 mg by mouth every other day. Historical ProviderMD Taking Active ranolazine (Ranexa) 500 mg 12 hr tablet Yes Take 1 tablet (500 mg) by mouth in the morning and at bedtime. Do not crush, chew, or split. 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 [facility] 12-05-2022 Note [facility] Cardiology Clinic Note Chief Complaint: Patient here for 6 mo follow up CAD, CKD, ischemic congestive cardiomyopathy, and hypertension. Had echo in August 2022 at [facility]. Device was checked last month. HPI: Vishal [...] urologist wishes to remove one of his [place] kidneys as it is pressing up on the stomach and into the chest. Update 12/05/2022: Doing about the same His urologist has decided against removal of his [place] kidney until it causes significant symptoms Mr. [...] Rfl: predniSONE (Deltas (more content not included)... [facility] 10-24-2022 Note Attestation signed by Shaun Castanon [...] Age: 61 y.o. : 1960 Account No.: [id number] Chief complaint: Follow up visit. Last visit [...] mg by mouth at bedtime. Historical ProviderMD clopidogrel (Plavix) 75 mg tablet Take 75 mg by mouth in the morning. Historical ProviderMD dapagliflozin (Farxiga) 10 mg Farxiga 10 mg [...] 20 mg tablet in the morning. Historical Provider, isosorbide mononitrate ER (Imdur) 30 [...] mg tablet Take by mouth. 01/01/20 Historical ProviderMD mycophenolate (Myfortic) 180 mg EC tablet Take 540 mg by mouth in the morning and at bedtime. Historical ProviderMD nitroglycerin (Nitrostat) 0.[address] 0.4 mg under the tongue every 5 (five) minutes if needed for chest p (more content not included)... [facility] 09-27-2022 Note 09/27/22 Chief Complaint Patient presents with Kidney Follow-up No major concerns today PCP: Rosa M Gonzales MD Txp Referring: Preferred Pharmacy: [id number] - [place], [place] - [address] [facility] [address] Subjective Visit Vitals BP 121/76 (BP Location: Right arm, Patient Position: Sitting, BP Cuff Size: Adult) Pulse 60 Temp 36.5 ???C (97.7 ???F) (Oral) Wt 96 kg (211 lb 11.2 oz) BMI 30.38 kg/m??? Smoking Status Former BSA 2.18 m??? No Known Allergies Medication Documentation Review Audit Reviewed by Derek Peters (Sales Marketing Coordinator) on 09/27/22 at 0859 Medication Order Taking? Sig Documenting Provider Last Dose Status aspirin 81 mg EC tablet [id number] No Take 81 mg by mouth in the morning. Historical ProviderMD Not Taking Active aspirin 81 mg EC tablet [id number] Yes in the morning. Historical ProviderMD Taking Active atorvastatin (Lipitor) 80 mg tablet [id number] Yes Take 80 mg by mouth at bedtime. Historical ProviderMD Taking Active clopidogrel (Plavix) 75 mg tablet [id number] Yes Take 75 mg by mouth in the morning. Historical ProviderMD Taking Active dapagliflozin (Farxiga) 10 mg [id number] Farxiga 10 mg tablet TAKE 1 TABLET BY MOUTH EVERY DAY Federico Chester MD Active empagliflozin (Jardiance) 10 mg [id number] Yes Take 1 tablet (10 mg) by mouth in the morning. Federico Chester MD Taking Active esomeprazole (NexIUM) [address] capsule [id number] Yes Take 40 mg by mouth before breakfast. Do not open capsule. Makayla Gates MD Taking Active famotidine (Pepcid) 20 mg tablet [id number] Yes Take 20 mg by mouth in the morning and at bedtime. Makayla Gates MD Taking Active famotidine (Pepcid) 20 mg tablet [id number] No in the morning. Makayla Gates MD Not Taking Active Discontinued 09/21/22 1548 isosorbide mononitrate ER (Imdur) 30 mg 24 hr tablet [id number] Yes isosorbide mononitrate ER 30 mg tablet,extended release 24 hr TAKE 1 TABLET BY MOUTH EVERY DAY Makayla Gates MD Taking Active isosorbide mononitrate ER (Imdur) 30 mg 24 hr tablet [id number] No Take 1 tablet (30 mg) by mouth once daily as directed. Do not crush or chew. Patient not taking: Reported on 09/27/2022 Federico Chester MD Not Taking Active lisinopril 5 mg tablet [id number] No Take 5 mg by mouth in the morning. Makayla Gates MD Not Taking Active lisinopril 5 mg tablet [id number] Yes lisinopril 5 mg tablet TAKE 1 TABLET BY MOUTH ONCE DAILY Makayla Gates MD Taking Active magnesium oxide (Mag-Ox) 400 mg tablet [id number] Yes 400 mg in the morning. Makayla Gates MD Taking Active metoprolol succinate XL (Toprol-XL) 200 mg 24 hr tablet [id number] Yes Take 200 mg by mouth in the morning. Do not crush or chew. Makayla Gates MD Taking Active metoprolol succinate XL (Toprol-XL) 200 mg 24 hr tablet [id number] No metoprolol succinate ER 200 mg tablet,extended release 24 hr TAKE 1 TABLET BY MOUTH DAILY Makayla Gates MD Not Taking Active metoprolol tartrate (Lopressor) 100 mg tablet [id number] No 1 (one) time each day at the same time. Makayla Gates MD Not Taking Active metoprolol tartrate (Lopressor) 50 mg tablet [id number] No Take by mouth. Makayla Gates MD Not Taking Active mycophenolate (Myfortic) 180 mg EC tablet [id number] Yes Take 540 mg by mouth in the morning and at bedtime. Historical Provider, Taking Active nitroglycerin (Nitrostat) 0.4 mg SL tablet [id number] Yes Place 0.4 mg under the tongue every 5 (five) minutes if needed for chest pain. Historical Provider, Taking Active predniSONE (Deltasone) 5 mg tablet [id number] Yes Take 5 mg by mouth every other day. Historical Provider, Taking Differently Active predniSONE (Deltasone) 5 mg tablet [id number] No Take 5 mg by mouth. Historical Provider, Not Taking Active Discontinued 09/21/22 1552 ranolazine (Ranexa) 500 mg 12 hr tablet [id number] Yes Take 1 tablet (500 mg) by mouth in the morning and at bedtime. Do not crush, chew, or split. Federico Chester MD Taking Active tacrolimus (Prograf) 0.5 mg capsule [id number] Yes tacrolimus 0.5 mg capsule, immediate-release TAKE 1 CAPSULE BY MOUTH TWICE DAILY Historical ProviderMD Taking Active tacrolimus (Prograf) 1 mg capsule [id number] Yes Take 0.5 mg by mouth in [...] artery disease F (more content not included)... [facility] 09-01-2022 Note Patient came in [facility] for his pft test. His DLCO was [...] predicted. Just wanted to report the difference. [facility] 08-18-2022 Note Reviewed 08/18/22 Hgb 17 and Hematocrit 52.7 by phone with Sb FRANK and per his phone order, phlebotomy x 1 unit PRBC and schedule RV with Petey Gonzalez NP to change ARB to ANNE during RV. Pt notified to stay well hydrated and requested phlebotomy @ [facility] and pt given RV appointment 09/27/22 and verbalizes understanding for RV. Notified Bop (Liza) of new order- scheduled @2pm tomorrow and pt agrees. Other labs pending receipt from [facility] today. [facility] 07-29-2022 Note Attestation signed by Georgie Carson [...] Physician, Pulmonary, Critical Care and Sleep Medicine [facility] 08/02/22 Pulmonary Clinic Visit Note Patient: Vishal Duke Age: 61 y.o. : 1960 Account No.: [id number] HPI 60-year-old gentleman With history of CABG, [...] Former smoker: Disability, used to work in [employer] No family hx of asthma, Past Medical [...] Do not crush or chew. Historical ProviderMD lisinopril 5 mg tablet Take 5 mg by mouth in the morning. Historical ProviderMD magnesium oxide (Mag-Ox) 400 mg tablet 400 mg in the morning. Historical ProviderMD metoprolol succinate XL (Toprol-XL) 200 mg 24 hr tablet Take 200 mg by mouth in the morning. Do not crush or chew. Historical ProviderMD mycophenolate (Myfortic) 180 mg EC tablet Take 540 mg by mouth in the morning, at noon, and at bedtime. Historical ProviderMD nitroglycerin (Nitrostat) 0.[address] 0.4 mg under the tongue every 5 (five) minutes if needed for chest pain. Historical ProviderMD predniSONE (Deltasone) 5 mg tablet Take 5 mg by mouth in the morning. Historical ProviderMD ranolazine (Ranexa) 500 mg 12 hr tablet Take 500 mg by mouth in the morning and at bedtime. Do not crush, chew, or split. Historical ProviderMD tacrolimus (Prograf) 1 mg capsule Take 0.5 [...] drugs. Family History (more content not included)... [facility] 07-05-2022 Note ja [facility] 06-16-2022 Note Subjective Patient ID: Vishal Duke [...] +/-. Patient has recent history of an CA and had Pacer/Defib Placed. Clinic visit for follow up transplant Current IS: tacrolimus 0.5 mg twice (more content not included)... [facility] 06-16-2022 Note 06/16/[address] Maldonado Nurse note history of renal transplant - DD Renal transplant on (08/15/2017) by Dr. Marquez. CMV +/-. Patient has recent history of an CA and had Pacer/Defib Placed. Clinic visit for [...] as ordered - Follow up: 6 months [facility] 05-30-2022 Note CARDIAC STRESS TEST Requesting Physician: [...] and relayed in a separate dictation. [facility] 01-17-2022 Hospital Discharge instructions Patient Education [...] urethra. Follow these instructions at home: Take [id number] and prescription medicines only as told by [...] 04/03/2006 Document Revised: 02/26/2019 Document Reviewed: 05/08/2017 [employer] Patient Education 2020 [employer]. Follow Up Care 11/09/2021 10:07:55 With:LEONARDA FRANK, BEBA Blanc Address: [facility] [address] , [place] [address]- [phone] When:01/18/2024 Comments:PSA [facility] 01-17-2022 Evaluation + Plan note Diagnostic Tests PendingPSA Total 01/17/22 [facility] 06-01-2021 Note PROCEDURE: [employer] VCT 64, 5.0 mm slice axial images [...] signed by Anjum Remy on 06/01/2021 1051 [facility] 12-05-2020 Note MR#: [id number] I [facility] Pt. Name: Vishal Duke Admitted: 12/02/2020 Discharged: [...] Herrera MD Date Trans: 12/05/2020 05:37 A/patrizia [id number] cc: Rosa M Gonzales M.D. [facility] [place] [address] [facility] 12-02-2020 Note MR#: [id number] [facility] Pt. Name: Vishal Duke Date of Service: 12/02/2020 Room #: 4CD [id number] Birthdate: 1960 Referring Physician: CONSULTATION Reason for [...] disease, gout, GERD, hypertension, CAD status post CA and 2 stents, HLD, Covid pneumonia Past [...] prasugrel and aspirin Electronically Signed by: Rafael Maldonado MD 12/14/2020 04:14 P Rafael Maldonado MD I personally saw this patient on the day of the encounter, performed the bruce portion(s) of the service and participated in the management and confirm the resident's documentation. Please note there may be an additional personal documentation from me. Date Dict: 12/02/2020/05:52 P/Angie Watkins, DO Date Trans: 12/02/2020 05:52 P/ [id number] cc: Rosa M Gonzales M.D. [address] [place] [id number] [facility] 08-20-2020 Note MR#: [id number] I [facility] Pt. Name: Vishal Duke Admitted: 08/02/2020 Discharged: [...] x2 in June. The patient's son and [id number] were symptomatic just before him. The patient was complaining of fatigue and mild body aches. The patient also developed cough and mild shortness of breath. His dyspnea was initially with exertion, but progressed to minimal activity. After he spoke with his expediter clerk, he decreased his Myfortic dose and received bamlanivimab on July. Later on, the patient was not able [...] Ferreira M.D. Date Trans: 08/20/2020 05:24 A/patrizia [id number] cc: Rosa M Gonzales M.D. [address] [facility] [id number] [facility] History of Present illness Narrative Patient is [...] he saw his regular Gunn by his propagation worker to agreed with and endorsed the care we rendered. The device was interrogated it in their office and it appears to be functioning appropriately. Because of all the above he is pleased with his care. He'll be following up henceforth with the [facility] propagation worker and we advised him were always happy to participate in his care if he needs help. I believe his ICD will be interrogated and managed through their office. We also note that his renal transplant was not injured as a result of the hospitalization and contrast administration and/or antibiotic therapy because of this he is pleased. [facility] [address] DO Work Phone: Hospital course Narrative No data available for this section [facility] Progress note No data available for this section [facility] Chief Complaint VISHAL DUKE is being seen for follow-up of a hospitalization for [facility] 12/11/2020 ICD insert. Family History No [...] section and content) DATE CREATED AUTHOR 04/25/2021 [facility] DATE CREATED AUTHOR AUTHOR'S ORGANIZ ATION 05/10/2021 [facility] DATE CREATED AUTHOR AUTHOR'S ORGANIZ ATION 07/18/2021 [facility] DATE CREATED AUTHOR AUTHOR'S ORGANIZ ATION 01/17/2022 [facility] DATE CREATED AUTHOR AUTHOR'S ORGANIZ ATION 08/25/2022 [facility] DATE CREATED AUTHOR AUTHOR'S ORGANIZ ATION 02/03/2023 [facility] DATE CREATED AUTHOR AUTHOR'S ORGANIZ ATION 05/01/2023 [facility] EPIC DATE CREATED AUTHOR AUTHOR'S ORGANIZ ATION 05/26/2023 [facility] Care Team (unrecognized sect ion and content) Personnel Name: ROSA M GONZALES MD Address: [address] [place] [id number] FOR RECORDS PERTAINING TO PATIENTS WHO ARE [...] BE BASED ON THE PRIMARY CLINICAL RECORDS. [facility]. provides no warranty or guarantee of the accuracy or completeness of information in this document.
[2023-05-31 17:07] LABS: Tacrolimus (FK506), Blood 5.5 ng/mL (2.0-20.0)
== END 2023-05-29 09:58 | disposition home or self-care (01) ==
LOC: LAB 09:59
PROVIDERS: PCP Family Medicine
DX: R73.01 Impaired fasting glucose (principal); Z94.0 Kidney transplant status
CPT/HCPCS: 36415; 80197

== ENCOUNTER 2023-06-26 09:36 | Outpatient (OUT) | payer MEDICARE, SELFPAY ==
--- OUTSIDE RECORDS SUMMARY | 2023-06-26 09:43 | XMS_ITS | CCD ---
Author Name Unknown Address [address] [place] [address] Organization [facility] Care Team Providers Care Residential Treatment Staff Name Role Phone Rosa M Gonzales Unavailable [phone] Unavailable Unavailable YONAS HERRERA Surgeon Unavailable [place] Procedure Practitioner Unavailab YONAS Hsieh Attending Unavailable ROSA M GONZALES Primary Care Unavailable ROSA M GONZALES Referring Unavailable JOEL RAFAEL Admitting Unavailable ROSA M GONZALES Primary Care Unavailable ROSA M GONZALES Referring Unavailable FEDERICO CHESTER Attending Unavailable FEDERICO CHESTER Admitting Unavailable ROSA M GONZALES Primary Care Unavailable ROSA M GONZALES Referring Unavailable Daniel Jansen Attending Unavailable Daniel Jansen Admitting Unavailable JUAN FERREIRA Attending Unavailable XOCHILT CABRERA Admitting Unavailable JULIET GOLDBERG Referring Unavailable ROSA M GONZALES Primary Care Unavailable YOJANA MCDANIELS Surgeon Unavailable [place] Procedure Practitioner Unavailab prabhakar MACDONALD, REFERRED Referring Unavailable ROSA M GONZALES Primary Care Unavailable DERICK VIDAL Attending Unavailable DERICK VIDAL Admitting Unavailable ROSA M GONZALES Primary Care Physician DR FEDERCIO CHESTER Consulting Unavailable ELTAHAWY, DR LAYTON Admitting Unavailable ELTAHAWY, DR LAYTON Attending Unavailable JANET, DR DUVAL Primary Care Unavailable MISC, DR PEDERSEN Admitting Unavailable MISC, DR PEDERSEN Attending Unavailable JANET, DR DUVAL Primary Care Unavailable MISC, DR PEDERSEN Consulting Unavailable MISC, DR PEDERSEN Admitting Unavailable MISC, DR PEDERSEN Attending Unavailable JANET, DR DUVAL Primary Care Unavailable MISC, DR PEDERSEN Consulting Unavailable MISC, DR DOCTOR Admitting Unavailable MISC, DOCTOR Consulting Unavailable MISC, DOCTOR Attending Unavailable JANET, DR DUVAL Primary Care Unavailable GILBERT, DR AIME Arnold Consulting Unavailable ELTAHAWY, DR LAYTON Admitting Unavailable ELTAHAWY, DR LAYTON Attending Unavailable JANET, DR DUVAL Primary Care Unavailable ELTAHAWY, DR LAYTON Consulting Unavailable MISC, DOCTOR Admitting Unavailable MISC, DOCTOR Attending Unavailable MISC, DOCTOR Consulting Unavailable JANET, DR DUVAL Primary Care Unavailable MISC, DOCTOR Admitting Unavailable MISC, DOCTOR Attending Unavailable MISC, DOCTOR Consulting Unavailable JANET, DR DUVAL Primary Care Unavailable JANET, DR DUVAL Primary Care Unavailable MISC, DOCTOR Attending Unavailable MISC, DR PEDERSEN Consulting Unavailable MISC, DOCTOR Admitting Unavailable MISC, DOCTOR Attending Unavailable MISC, DR PEDERSEN Consulting Unavailable JANET, DR DUVAL Primary Care Unavailable MISC, DOCTOR Admitting Unavailable PETALICIA FELDMAN Attending Unavailable Janet FRANK, Rosa M Unavailable [phone] Rosa M Gonzales MD Primary Care Provider Lc GODWIN, Rosa M Unavailable AL-JOHNNYRIDarnell, KELVIN Attending Unavailable PETEY REDDING Attending Unavailable HENRY, SHAUN Referring Unavailable AHMADMADIE Attending Unavailable EKWENNA, OBI Admitting Unavailable EKWENNA, OBI Attending Unavailable TEAGAN VILLANUEVA Referring Unavailable EKWENNA, OBI Referring Unavailable ELTAHAWY, EHAB Attending Unavailable TEAGAN VILLANUEVA Referring Unavailable EKWENNA, OBI Attending Unavailable PETEY REDDING Attending Unavailable EKWENNA, OBI Attending Unavailable SAFI, SHARLA Referring Unavailable ELTAHAWY, EHAB Attending Unavailable EKWENNA, OBI Attending Unavailable SAFI, SHARLA Referring Unavailable EKWENNA, OBI Attending Unavailable Reji BROWER Attending Unavailable Xochilt Graham Attending Unavaila ble Allergies Allergy Classification Reported Allergen(s) Allergy Type Date of Onset Reaction(s) Facility (1 source) 08763,00; Translations: [38594,00] Propensity to adverse reactions (disorder) 9 [facility] Repository (1 source) Cephalexin; Translations: [Keflex] Drug Allergy [facility] Repository Medications Current Medications Medication Drug Class(es) Dates Sig (Normalized) Sig (Original) [id number] 200 actuat albuterol 0.09 mg/actuat metered dose inhaler (1 source) beta2-Adrenergic Agonist Start: 10-24-2022 End: 10-24-2023 take 2 puff(s) by inhalation every four hours albuterol HFA 90 mcg/act inhaler Inhale 2 puffs every 4 (four) hours if needed. 0 10/24/2022 10/24/2023 Active atorvastatin 80 mg oral tablet (3 sources) HMG-CoA Reductase Inhibitor Start: 11-21-2022 take 1 tablet by mouth in the morning atorvastatin (Lipitor) 80 MG tablet Take 80 mg by mouth in the morning. 0 11/21/2022 Active Start: 01-17-2022 take 1 tablet by jacob th once daily atorvastatin 80 mg Tab 80 mg = 1 tab(s), Oral, Daily Start Date: 01/17/22 Status: Ordered Start: 01-04-2021 take 1 tablet by jacob th once daily Atorvastatin Calcium 80 MG Oral Tablet TAKE 1 TABLET BY MOUTH EVERY DAY Quantity: 30 Refills: 0 Ordered: 04-Apr-2021 DO Start : 04-Jan-2021 Active clopidogrel 75 mg oral tablet (3 sources) [id number] Platelet Inhibitor Start: 01-17-2022 take [...] Status: Ordered take 1 tablet by jacob once daily in the morning Farxiga 10 MG Oral Tablet TAKE 1 TABLET BY MOUTH EVERY MORNING Quantity: 0 Refills: 0 Ordered: 23-Apr-2021 DO Active empagliflozin 10 mg oral tablet (1 source) Sodium-Glucose Cotransporter 2 Inhibitor Start: 07-05-2022 End: 07-05-2023 take 10 mg by mouth in the morning empagliflozin (Jardiance) 10 MG Take 10 mg by mouth in the morning. 0 07/05/2022 07/05/2023 Active esomeprazole 40 mg delayed release oral capsule (1 source) Proton Pump Inhibitor take 1 capsule by mouth in the morning esomeprazole (NexIUM) [address] capsule Take 1 capsule by mouth in the morning. 0 Active fluocinonide 0.5 mg/ml topical solution (1 source) Corticosteroid Start: 02-06-2023 fluocinonide (Lidex) 0.05 % external solution Indications: Other seborrheic dermatitis Apply to affected areas on the scalp twice a day for flares, set aside when clear. 30 days 60 mL 11 02/06/2023 Active 24 hr isosorbide mononitrate 30 mg extended release oral tablet (1 source) Nitrate Vasodilator Start: 09-21-2022 take 1 tablet by mouth every twenty-four hours in the morning isosorbide mononitrate ER (Imdur) 30 MG 24 hr tablet Take 1 tablet by mouth in the morning. 0 09/21/2022 Active magnesium amino acid chelate (1 source) Start: 01-01-2020 magnesium amino acids chelate Oral, Refills(s) 0 Start Date: 01/01/20 Status: Ordered magnesium oxide 400 mg oral tablet (3 sources) Start: 11-08-2022 End: 11-08-2023 take 1 tablet by mouth in the morning, then take 1 tablet by mouth in the evening, then take 1 tablet by mouth at bedtime magnesium oxide (Mag-Ox) 400 MG tablet Indications: History of kidney transplant (CMS/HCC) Take 1 tablet (400 mg) by mouth in the morning and 1 tablet (400 mg) in the evening and 1 tablet (400 mg) before bedtime. 270 tablet 1 11/08/2022 11/08/2023 Active Start: 01-17-2022 take 1 tablet by jacob th three times daily magnesium oxide 400 mg Tab 400 mg = 1 tab(s), Oral, TID Start Date: 01/17/22 Status: Ordered Start: 07-01-2020 take 1 tablet by jacob th three times daily Magnesium Oxide 400 (241.3 Mg) MG Oral Tablet TAKE 1 TABLET BY MOUTH THREE TIMES DAILY Quantity: 90 Refills: 0 Ordered: 03-Mar-2021 DO Start : 01-Jul-2020 Active 24 hr metoprolol succinate 200 mg extended release oral tablet (3 sources) beta-Adrenergic Temo Start: 11-21-2022 take 1 tablet by mouth every twenty-four hours in the morning metoprolol succinate XL (Toprol-XL) 200 MG 24 hr tablet Take 200 mg by mouth in the morning. 0 11/21/2022 Active Start: 01-04-2021 take 1 tablet by jacob th every twenty-four hours Metoprolol Succinate ER 200 MG Oral Tablet Extended Release 24 Hour Quantity: 30 Refills: 0 Ordered: 04-Apr-2021 DO Start : 04-Jan-2021 Active Start: 01-01-2020 take 1 mg by mouth twice daily Metoprolol tartrate 50 mg Tab mg tab(s), Oral, BID, Refills(s) 0 Start Date: 01/01/20 Status: Ordered mycophenolic acid 180 mg delayed release oral tablet (3 sources) Antimetabolite Immunosuppressant Start: 12-14-2022 End: 06-12-2023 take 3 tablets by mouth in the morning mycophenolate (Myfortic) 180 MG EC tablet Indications: History of kidney transplant (CMS/HCC) Take 3 tablets (540 mg) by mouth in the morning and 3 tablets (540 mg) before bedtime. 540 tablet 1 12/14/2022 06/12/2023 Active Start: 02-03-2021 take 3 tablets by mo uth twice daily Mycophenolate Sodium 180 MG Oral Tablet Delayed Release TAKE 3 TABLET Twice daily Quantity: 0 Refills: 0 Ordered: 04-Apr-2021 DO Start : 03-Feb-2021 Active Start: 01-01-2020 take 1 mg by mouth twice daily mycophenolic acid 180 mg oral enteric coated tablet mg tab(s), Oral, BID, Refills(s) 0 Start Date: 01/01/20 Status: Ordered nitroglycerin 0.4 mg sublingual tablet (2 sources) Nitrate Vasodilator Start: 11-08-2022 End: 11-08-2023 nitroglycerin (Nitrostat) 0.4 MG SL tablet Indications: Coronary artery disease 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 90 tablet 12 11/08/2022 11/08/2023 Active Start: 10-26-2020 Nitroglycerin 0.4 MG Sublingual Tablet Sublingual PLACE 1 TABLET UNDER THE TONGUE EVERY 5 MINUTES UP TO 3 DOSES NEEDED FOR CHEST PAIN. Quantity: 25 Refills: 6 Ordered: 07-Dec-2020 DO Start : 26-Oct-2020 Active prasugrel 10 mg oral tablet (1 [...] Status: Ordered predniSONE 5 mg oral tablet (3 sources) Start: 03-14-2023 take 1 tablet by mouth once daily predniSONE (Deltasone) 5 MG tablet Indications: Kidney transplant status ([facility]) TAKE 1 TABLET BY MOUTH DAILY 90 tablet 0 03/14/2023 Active Start: 01-17-2022 take 1 tablet by jacob th once daily predniSONE 5 mg Tab 5 mg = 1 tab(s), Oral, Daily Start Date: 01/17/22 Status: Ordered Start: 11-06-2020 take 1 tablet by jacob th once daily predniSONE 5 MG Oral Tablet TAKE 1 TABLET DAILY. Quantity: 0 Refills: 0 Ordered: 04-Apr-2021 DO Start : 06-Nov-2020 Active 12 hr ranolazine 500 mg extended release oral tablet (2 sources) Anti-anginal Start: 01-17-2022 take 1 tablet by mouth twice daily ranolazine 500 mg oral ER Tab 500 mg = 1 tab(s), Oral, BID Start Date: 01/17/22 Status: Ordered take 1 tablet by jacob th every twelve hours in the morning ranolazine (Ranexa) 500 MG 12 hr tablet Take 500 mg by mouth in the morning and 500 mg before bedtime. Do not crush, chew, or split. . 0 Active sodium bicarbonate 325 mg oral tablet (1 [...] Refill(s) 0 Start Date: 01/01/20 Status: Ordered tacrolimus 0.5 mg oral capsule (3 sources) Calcineurin Inhibitor Immunosuppressant Start: 11-08-2022 End: 11-08-2023 take 1 capsule by mouth in the morning tacrolimus (Prograf) 0.5 MG capsule Indications: History of kidney transplant (CMS/[facility]) Take 1 capsule (0.5 mg) by mouth in the morning and 1 capsule (0.5 mg) before bedtime. 180 capsule 1 11/08/2022 11/08/2023 Active Start: 07-01-2020 Tacrolimus 1 M G Oral Capsule TAKE DIRECTED. Quantity: 0 Refills: 0 Ordered: 04-Apr-2021 DO Start : 01-Jul-2020 Active Start: 01-01-2020 tacrolimus 1 m g, Refills(s) 0 Start Date: 01/01/20 Status: Ordered valGANciclovir 450 mg oral tablet (1 source) Start: 01-01-2020 take 1 mg by mouth once daily valganciclovir 450 mg oral tablet mg tab(s), Oral, Daily, Refills(s) 0 Start Date: 01/01/20 Status: Ordered Completed/Discontinued Medications Medication Drug Class(es) Dates Sig (Normalized) Sig (Original) aspirin 81 mg chewable tablet (3 sources) Platelet Aggregation Inhibitor, Nonsteroidal Anti-inflammatory Drug [...] Refills(s) 0 Start Date: 01/01/20 Status: Ordered take 1 tablet by jacob th in the morning aspirin 81 MG EC tablet Take 81 mg by mouth in the morning. 0 Active lisinopril 5 mg oral tablet (3 sources) Angiotensin Converting Enzyme Inhibitor Start: 01-03-2020 take 1 tablet by mouth once daily Lisinopril 5 MG Oral Tablet TAKE 1 TABLET DAILY. Quantity: 90 Refills: 3 Ordered: 04-Apr-2021 DO Start : 03-Sep-2020 Active Problems Active Problems Problem Classification Problem Date Documented Date Episodic/Chronic Acute and unspecified renal failure (2 sources) Renal failure syndrome; Translations: [Unspecified kidney failure] Onset: 3 01-01-2020 Chronic Acute myocardial infarction (3 sources) Myocardial infarction; Translations: [Acute non-ST segment elevation myocardial infarction] Onset: 3 01-17-2022 Chronic Cardiac arrest and ventricular fibrillation (1 source) Ventricular fibrillation; Translations: [Cardiac arrest] Chronic Cardiac dysrhythmias (1 source) Ventricular tachycardia; Translations: [Ventricular tachycardia] Onset: 3 11-08-2022 Chronic Cataract (3 sources) Age-related nuclear cataract of left eye; Translations: [Age-related nuclear cataract, left eye] Onset: 3 10-25-2022 Chronic Chronic kidney disease (8 sources) Kidney transplant status; Translations: [Chronic kidney disease stage 3] Onset: 0 Chronic Chronic obstructive pulmonary disease and bronchiectasis (1 source) Chronic obstructive lung disease; Translations: [Chronic obstructive pulmonary disease, unspecified] Onset: 3 02-02-2023 Chronic Conduction disorders (3 sources) Automatic implantable cardiac defibrillator in situ; Translations: [Automatic implantable cardiac defibrillator in situ] Onset: 3 Chronic Congestive heart failure; nonhypertensive (5 sources) Chronic systolic heart failure; Translations: [Chronic systolic (congestive) heart failure] Onset: 3 11-08-2022 Chronic Coronary atherosclerosis and other heart disease (11 sources) Coronary atherosclerosis; Translations: [Coronary atherosclerosis of [place]qu[place]mi[place] coronary artery] Onset: 2 Chronic Deficiency and other anemia (1 source) Increased hemoglobin; Translations: [Other hemoglobinopathies] Onset: 3 11-08-2022 Chronic Deficiency and other anemia (2 sources) Other hemoglobinopathies; Translations: [Other hemoglobinopathies] Onset: 3 Chronic Diabetes mellitus without complication (2 sources) Impaired fasting glucose; Translations: [Impaired fasting glucose] Onset: 3 Episodic Disorders of lipid metabolism (4 sources) Hyperlipidemia; Translations: [Other and unspecified hyperlipidemia] Onset: 3 01-01-2020 Chronic Esophageal disorders (3 sources) Gastroesophageal reflux disease; Translations: [Gastro-esophageal reflux disease without esophagitis] Onset: 0 11-08-2022 Chronic Essential hypertension (5 sources) Hypertensive disorder; Translations: [Essential hypertension] Onset: 2 01-01-2020 Chronic Fluid and electrolyte disorders (4 sources) Disorder of electrolytes; Translations: [Other disorders of electrolyte and fluid balance, not elsewhere classified] Onset: 3 11-08-2022 Episodic 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 polycystic kidney disease; Translations: [Polycystic kidney, adult type] Onset: 3 11-08-2022 Chronic Genitourinary congenital anomalies (1 source) H/O: congenital anomaly; Translations: [Personal history of other specified (corrected) congenital malformations of genitourinary system] Onset: 2 Episodic Gout and other crystal arthropathies (2 sources) 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; Translations: [Chronic gout due to renal impairment, multiple sites, without tophus (tophi)] Onset: 2 11-08-2022 Chronic Hyperplasia of prostate (4 sources) Benign prostatic hypertrophy with outflow obstruction; Translations: [Benign prostatic hyperplasia with lower urinary tract symptoms] Onset: 2 Chronic Immunity disorders (3 sources) Immunosuppression; Translations: [Immunodeficiency, unspecified] Onset: 3 11-08-2022 Chronic Nutritional deficiencies (1 source) Active rickets; Translations: [Rickets, active] Onset: 3 11-08-2022 Chronic Other aftercare (1 source) Transplant follow-up; Translations: [Encounter for aftercare following other organ transplant] Onset: 3 11-08-2022 Chronic Other aftercare (2 sources) Encounter for aftercare following other organ transplant; Translations: [Encounter for aftercare following other organ transplant] Onset: 3 Chronic Other diseases of kidney and ureters (2 sources) Other specified disorders of kidney and ureter; Translations: [Other specified disorders of kidney and ureter] Onset: 3 Chronic Other endocrine disorders (1 source) Male hypogonadism; Translations: [Testicular hypofunction] Onset: 3 11-08-2022 Chronic Other nervous system disorders (1 source) Neuropathy; Translations: [Polyneuropathy, unspecified] Onset: 3 11-08-2022 Chronic Other nutritional; endocrine; and metabolic disorders (1 source) Hypervitaminosis A; 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] Onset: 3 11-08-2022 Chronic Other screening for suspected conditions (not [...] Other Problems Problem Classification Problem Date Documented Date Episodic/Chronic Acute bronchitis (1 source) Acute bronchitis; Translations: [Acute bronchitis, unspecified] Onset: 03-28-2013 02-02-2023 Episodic Genitourinary symptoms and ill-defined conditions (7 sources) Nocturia; Translations: [Nocturia] Onset: 01-17-2022 Episodic Mood disorders (1 source) Mood disorders Onset: 11-08-2022 11-08-2022 Other hematologic conditions (2 sources) Red blood cell disorder; Translations: [Other abnormality of red blood cells] Onset: 11-08-2022 11-08-2022 Episodic Other hematologic conditions (1 source) Other abnormality of red blood cells; Translations: [Other abnormality of red blood cells] Onset: 08-19-2022 Episodic Other lower respiratory disease (3 sources) Other forms of dyspnea; Translations: [Other respiratory abnormalities] Onset: 10-24-2022 02-02-2023 Episodic Other lower respiratory disease (2 sources) Shortness of breath; Translations: [Shortness of breath] Onset: 07-29-2022 Episodic Other upper respiratory infections (1 source) Upper respiratory infection; Translations: [Acute upper respiratory infection, unspecified] Onset: 11-08-2022 11-08-2022 Episodic Residual codes; unclassified (1 source) At risk for infection; Translations: [Personal history of immunosupression therapy] Onset: 12-30-2019 02-02-2023 Episodic Screening and history of mental health and substance abuse codes (3 sources) Ex-smoker; Translations: [Personal history of tobacco use] Onset: 07-29-2022 Episodic Comment on above: Quit in 2008; Unclassified (1 source) Personal history of COVID-19; Translations: [Personal history of COVID-19] Onset: 07-29-2022 Unclassified (1 source) Post covid-19 condition, unspecified; Translations: [Post covid-19 condition, unspecified] Onset: 07-29-2022 Urinary tract infections (1 source) Pyelonephritis; Translations: [Tubulo-interstitial nephritis, not specified as acute or chronic] Onset: 12-09-2009 11-08-2022 Episodic Results Test Name Value Interpretation Reference Range Facility Office Visiton 06-05-2023 Follow-up visit [id number] [facility] 1960 M Date Provider Department Center 06/05/2023 [facility] Andreea Blackwood Family History Problem Relation Age of Onset Alzheimer's disease Mother Coronary artery disease Father Family Status - Relation Status Age at Mother Father Level of Service:49113 [place] OFFICE/OUTPATIENT ESTABLISHED LOW MDM 20 MIN Normal [facility] TACROLIMUS (FK506), BLOODon 05-31-2023 TACROLIMUS (FK506), BLOOD 5.5 ng/mL 2.0 - 20.0 ng/mL [facility] Comment on above: This test was develo ped and its performance characteristics determined by [employer]. It has not been cleared or approved by the Food and Drug Administration. Trough (immediately following transplant) 15.0 Trough (steady state, 2 weeks or more after transplant): 3.0 - 8.0 Performed by LC-MS/MS technology. Performed at: [address] [id number] Nurse Leader: Evan Orozco MD, Phone: [phone] [facility] BILIRUBIN, DIRECTon 05-18-19 24 Magnesium [Mass/Vol] 0.2 mg/dL Normal 0-0.2 [facility] Comment on above: Performed By: #### L [id number] #### [facility] (BEAKER) [address] [place] [address] CBC WITH AUTO DIFFERENTIALon 05-18-2023 Basophils (Bld) [#/Vol] 0.05 10*3/uL Normal 0.00-0.20 [facility] Comment on above: Performed By: #### L [id number] #### [facility] ([facility]) [address] [place] [address] Basophils/100 WBC (Bld) 0.6 % Normal 0.0-1.0 [facility] Comment on above: Performed By: #### L [id number] #### [facility] ([facility]) [address] [place] [address] Eosinophils (Bld) [#/Vol] 0.12 10*3/uL Normal 0.00-0.50 [facility] Comment on above: Performed By: #### L [id number] #### [facility] ([facility]) [address] [place] [address] Eosinophils/100 WBC (Bld) 1.4 % Normal 0.0-6.0 [facility] Comment on above: Performed By: #### L [id number] #### [facility] ([facility]) [address] [place] [address] Erythrocyte distribution width (RBC) [Ratio] 14.9 % Normal 11.5-15.0 [facility] Comment on above: Performed By: #### L [id number] #### [facility] ([facility]) [address] [place] [address] ERYTHROCYTE MEAN CORPUSCULAR HEMOGLOBIN CONCENTRATION (G/DL) BY AUTOMATED 33.4 g/dL Normal 32.0-35.0 [facility] Comment on above: Performed By: #### L [id number] #### [facility] ([facility] [address] [place] [address] Hematocrit (Bld) [Volume fraction] 48.5 % Normal 39.0-55.0 [facility] Comment on above: Performed By: #### L [id number] #### [facility] ([facility]) [address] [place] [address] Hemoglobin (Bld) [Mass/Vol] 16.2 g/dL Normal 13.0-17.0 [facility] Comment on above: Performed By: #### L [id number] #### [facility] ([facility]) [address] [place] [address] Immature granulocytes (Bld) [#/Vol] 0.07 10*3/uL Normal 0.00-0.20 [facility] Comment on above: Performed By: #### L [id number] #### [facility] ([facility]) [address] [place] [address] Immature granulocytes/100 WBC (Bld) 0.8 % Normal 0.0-1.0 [facility] Comment on above: Performed By: #### L [id number] #### [facility] ([facility]) [address] [place] [address] Lymphocytes (Bld) [#/Vol] 1.06 10*3/uL Low 1.20-4.00 [facility] Comment on above: Performed By: #### L [id number] #### [facility] ([facility]) [address] [place] [address] Lymphocytes/100 WBC (Bld) 12.3 % Low 20.0-45.0 [facility] Comment on above: Performed By: #### L [id number] #### [facility] ([facility]) [address] [place] [address] MCH (RBC) [Entitic mass] 29.9 pg Normal 27.0-33.0 [facility] Comment on above: Performed By: #### L [id number] #### [facility] ([facility]) [address] [place] [address] MCV (RBC) [Entitic vol] 89.6 fL Normal 82.0-98.0 [facility] Comment on above: Performed By: #### L [id number] #### [facility] ([facility]) [address] [place] [address] Monocytes (Bld) [#/Vol] 0.68 10*3/uL Normal 0.10-1.00 [facility] Comment on above: Performed By: #### L [id number] #### [facility] ([facility]) [address] [place] [address] Monocytes/100 WBC (Bld) 7.9 % Normal 5.0-12.0 [facility] Comment on above: Performed By: #### L [id number] #### [facility] [address] [place] [address] Neutrophils (Bld) [#/Vol] 6.61 10*3/uL Normal 1.60-7.60 [facility] Comment on above: Performed By: #### L [id number] #### [facility] ([facility]) [address] [place] [address] Neutrophils/100 WBC (Bld) 77.0 % High 40.0-72.0 [facility] [facility] Comment on above: Performed By: #### L [id number] #### [facility] ([facility]) [address] [place] [address] NRBC (PER 100 WBCS) BY AUTOMATED COUNT 0.0 % Normal 0 [facility] Comment on above: Performed By: #### L [id number] #### [facility] ([facility]) [address] [place] [address] PLATELETS (10*3/UL) IN BLOOD AUTOMATED COUNT 254 10*3/uL Normal 150-400 [facility] Comment on above: Performed By: #### L [id number] #### [facility] ([facility]) [address] [place] [address] RBC (Bld) [#/Vol] 5.41 10*6/uL Normal 4.20-5.70 [facility] Comment on above: Performed By: #### L [id number] #### [facility] ([facility]) [address] [place] [address] WBC (Bld) [#/Vol] 8.59 10*3/uL Normal 4.00-10.60 [facility] Comment on above: Performed By: #### L [id number] #### [facility] ([facility]) [address] [place] [address] COMPREHENSIVE METABOLIC PANE Nitin 05-18-2023 Albumin [Mass/Vol] 4.5 g/dL Normal 3.5-5.7 [facility] Comment on above: Performed By: #### L [id number] #### [facility] ([facility] [address] [place] [address] ALP [Catalytic activity/Vol] 78 U/L Normal 34-104 [facility] Comment on above: Performed By: #### L [id number] #### [facility] ([facility]) [address] [place] [address] ALT [Catalytic activity/Vol] 22 U/L Normal 7-52 [facility] Comment on above: Performed By: #### L [id number] #### [facility] ([facility]) [address] [place] [address] Anion gap [Moles/Vol] 12 mmol/L Normal 7-20 [facility] Comment on above: Performed By: #### L [id number] #### [facility] ([facility]) [address] [place] [address] AST [Catalytic activity/Vol] 17 U/L Normal 13-39 [facility] Comment on above: Performed By: #### L [id number] #### [facility] ([facility]) [address] [place] [address] Bilirubin [Mass/Vol] 0.8 mg/dL Normal 0.3-1.0 [facility] Comment on above: Performed By: #### L [id number] #### [facility] ([facility]) [address] [place] [address] Calcium [Mass/Vol] 9.4 mg/dL Normal 8.6-10.3 [facility] Comment on above: Performed By: #### L [id number] #### [facility] ([facility]) [address] [place] [address] Chloride [Moles/Vol] 101 mmol/L Normal 98-107 [facility] Comment on above: Performed By: #### L [id number] #### [facility] ([facility]) [address] [place] [address] CO2 [Moles/Vol] 26 mmol/L Normal 21-31 [facility] Comment on above: Performed By: #### L [id number] #### [facility] ([facility]) [address] [place] [address] Creatinine [Mass/Vol] 1.24 mg/dL Normal 0.70-1.30 [facility] Comment on above: Performed By: #### L [id number] #### [facility] ([facility]) [address] [place] [address] GLOMERULAR FILTRATION RATE ML/MIN/1.73 SQ M.PREDICTED 65.7 mL/min/1.73m*2 Normal >60.0 [facility] Comment on above: Result Comment: [facility]???s estimated glomerular filtration rate (eGFR) will [...] group of individuals. Performed By: #### L [id number] #### [facility] ([facility]) [address] [place] [address] Glucose [Mass/Vol] 130 mg/dL High 70-100 [facility] Comment on above: Performed By: #### L [id number] #### [facility] ([facility]) [address] [place] [address] Potassium [Moles/Vol] 4.0 mmol/L Normal 3.5-5.1 [facility] Comment on above: Performed By: #### L [id number] #### [facility] ([facility]) [address] [place] [address] Protein [Mass/Vol] 6.8 g/dL Normal 6.0-8.3 [facility] Comment on above: Performed By: #### L [id number] #### [facility] ([facility]) [address] [place] [address] Sodium [Moles/Vol] 135 mmol/L Low 136-145 [facility] Comment on above: Performed By: #### L [id number] #### [facility] ([facility]) [address] [place] [address] Urea nitrogen [Mass/Vol] 24 mg/dL Normal 7-25 [facility] Comment on above: Performed By: #### L [id number] #### [facility] [address] [place] [address] UREA NITROGEN/CREATININE (MASS RATIO) IN SER/PLAS 19.4 Normal [facility] Comment on above: Performed By: #### L [id number] #### [facility] ([facility] [address] [place] [address] Follow-Upon 05-18-2023 Follow-Up [id number] Vishal Duke 1960 M Date Provider Department Center 05/18/2023 263-JOEL OBI TXP None Family History Problem Relation Age of Onset Alzheimer's disease Mother Coronary artery disease Father Family Status - Relation Status Age at Mother Father Level of Service:48876 [place] OFFICE/OUTPATIENT ESTABLISHED LOW MDM 20 MIN Reason for Visit and Comments: Kidney Follow-up [] - Patient has no major concerns today Normal [facility] HEMOGLOBIN A1Con 05-18-2023 Glucose [Mass/Vol] 137 mg/dL Normal [facility] Comment on above: Performed By: #### L [id number] #### [facility] ([facility] [address] [place] [address] HbA1c (Bld) [Mass fraction] 6.4 % High 4.0-6.0 [facility] Comment on above: Performed By: #### L [id number] #### [facility] ([facility]) [address] [place] [address] LIPID PANELon 05-18-2023 CHOL/HDL 3.2 mg/dL Normal [facility] Comment on above: Performed By: #### L [id number] #### [facility] ([facility]) [address] [place] [address] Cholesterol [Mass/Vol] 120 mg/dL Normal 120-200 [facility] Comment on above: Performed By: #### L [id number] #### [facility] ([facility]) [address] [place] [address] Magnesium [Mass/Vol] 209 mg/dL High 40-149 [facility] Comment on above: Result Comment: TRIG LYCERIDE REFERENCE RANGE: 20 YEARS AND OLDER CARDIOVASCULAR RISK LESS THAN 150 mg/dL LOW RISK 150 TO 199 mg/dL BORDERLINE RISK 200 mg/dL AND GREATER HIGH RISK Performed By: #### L [id number] #### [facility] ([facility] [address] [place] [address] Magnesium [Mass/Vol] 40 mg/dL Normal 0-160 [facility] Comment on above: Performed By: #### L [id number] #### [facility] ([facility]) [address] [place] [address] Magnesium [Mass/Vol] 38 mg/dL Normal 23-92 [facility] Comment on above: Performed By: #### L [id number] #### [facility] ([facility]) [address] [place] [address] NON HDL CHOL. (LDL+VLDL) 82 Normal [facility] Comment on above: Performed By: #### L [id number] #### [facility] [address] [place] [address] TOTAL VLDL-C 42 mg/dL High 0-40 [facility] Comment on above: Performed By: #### L [id number] #### [facility] ([facility]) [address] [place] [address] Labon 05-18-2023 Lab [id number] Vishal Duke 1960 M Date Provider Department Center 05/18/2023 [id number] DRAW STATION KXT Draw [facility] Family History Problem Relation Age of Onset Alzheimer's disease Mother Coronary artery disease Father Family Status - Relation Status Age at Mother Father Normal [facility] MAGNESIUMon 05-18-2023 Magnesium [Mass/Vol] 1.6 mg/dL Low 1.9-2.7 [facility] Comment on above: Performed By: #### L [id number] #### [facility] ([facility]) [address] [place] [address] Orders Onlyon 05-18-2023 Orders Only [id number] Juan Diego Dukeren Waldemar 1960 M Date Provider Department Center 05/18/2023 1971-FARRUKH BLANCAS TXP None Family History Problem Relation Age of Onset Alzheimer's disease Mother Coronary artery disease Father Family Status - Relation Status Age at Mother Father Normal [facility] PHOSPHORUSon 05-18-2023 Magnesium [Mass/Vol] 3.5 mg/dL Normal 2.5-5.0 [facility] Comment on above: Performed By: #### L [id number] ####[facility] ([facility])[address] [place] [address] TACROLIMUS LEVELon Tacrolimus (Bld) [Mass/Vol] 11.6 ng/mL Normal 5.0-20.0 [facility] Comment on above: Result Comment: The [employer] Tacrolimus assay is a delayed one-step immunoassay for the quantitative determination of tacrolimus in human whole blood using the chemiluminescent microparticle immunoassay (CMIA) technology with flexible assay protocols, referred to as Chemiflex. Performed By: #### L [id number] #### [facility] ([facility]) [address] [place] [address] TESTOSTERONE, FREE AND TOTAL , AND SHBGon 05-18-2023 SEX HORMONE BINDING GLOBULIN (NMOL/L) IN SER/PLAS 28 nmol/L Normal 11-80 [facility] Comment on above: Performed By: #### L [id number] #### [facility] ([facility]) [address] [place] [address] TESTOSTERONE (NG/DL) IN SER/PLAS 319 ng/dL Normal 220-1000 [facility] Comment on above: Performed By: #### L [id number] #### [facility] ([facility]) [address] [place] [address] TESTOSTERONE FREE (NG/ML) IN SER/PLAS 69.3 pg/mL Normal 47-244 [facility] Comment on above: Result Comment: The concentration of free testosterone is derived from a mathematical expression based on the constant for the binding of testosterone to albumin and/or sex hormone binding globulin. Test Performed by [facility] [place] [address] - Released 05/18/2023 15:33 Performed By: #### L [id number] #### [facility] ([facility]) [address] [place] [address] URIC ACIDon 05-18-2023 Magnesium [Mass/Vol] 5.1 mg/dL Normal 4.4-7.6 [facility] Comment on above: Performed By: #### L [id number] #### [facility] ([facility]) [address] [place] [address] BILIRUBIN, DIRECTon 03-28-20 Magnesium [Mass/Vol] 0.1 mg/dL Normal 0-0.2 [facility] Comment on above: Performed By: #### L [id number] #### [facility] ([facility]) [address] [place] [address] CBC WITH AUTO DIFFERENTIALon 03-28-2023 Basophils (Bld) [#/Vol] 0.08 10*3/uL Normal 0.00-0.20 [facility] Comment on above: Performed By: #### L [id number] #### [facility] ([facility]) [address] [place] [address] Basophils/100 WBC (Bld) 0.8 % Normal 0.0-1.0 [facility] Comment on above: Performed By: #### L [id number] #### [facility] ([facility]) [address] [place] [address] Eosinophils (Bld) [#/Vol] 0.17 10*3/uL Normal 0.00-0.50 [facility] Comment on above: Performed By: #### L [id number] #### [facility] ([facility]) [address] [place] [address] Eosinophils/100 WBC (Bld) 1.7 % Normal 0.0-6.0 [facility] Comment on above: Performed By: #### L [id number] #### [facility] ([facility]) [address] [place] [address] Erythrocyte distribution width (RBC) [Ratio] 14.8 % Normal 11.5-15.0 [facility] Comment on above: Performed By: #### L [id number] #### [facility] ([facility]) [address] [place] [address] ERYTHROCYTE MEAN CORPUSCULAR HEMOGLOBIN CONCENTRATION (G/DL) BY AUTOMATED 32.9 g/dL Normal 32.0-35.0 [facility] Comment on above: Performed By: #### L [id number] #### [facility] ([facility]) [address] [place] [address] Hematocrit (Bld) [Volume fraction] 49.3 % Normal 39.0-55.0 [facility] Comment on above: Performed By: #### L [id number] #### [facility] ([facility]) [address] [place] [address] Hemoglobin (Bld) [Mass/Vol] 16.2 g/dL Normal 13.0-17.0 [facility] Comment on above: Performed By: #### L [id number] #### [facility] ([facility]) [address] [place] [address] Immature granulocytes (Bld) [#/Vol] 0.07 10*3/uL Normal 0.00-0.20 [facility] Comment on above: Performed By: #### L [id number] #### [facility] ([facility]) [address] [place] [address] Immature granulocytes/100 WBC (Bld) 0.7 % Normal 0.0-1.0 [facility] Comment on above: Performed By: #### L [id number] #### [facility] ([facility]) [address] [address] Lymphocytes (Bld) [#/Vol] 1.26 10*3/uL Normal 1.20-4.00 [facility] Comment on above: Performed By: #### L [id number] #### [facility] ([facility]) [address] [place] [address] Lymphocytes/100 WBC (Bld) 12.4 % Low 20.0-45.0 [facility] Comment on above: Performed By: #### L [id number] #### [facility] ([facility]) [address] [place] [address] MCH (RBC) [Entitic mass] 29.8 pg Normal 27.0-33.0 [facility] Comment on above: Performed By: #### L [id number] #### [facility] [address] [place] [address] MCV (RBC) [Entitic vol] 90.8 fL Normal 82.0-98.0 [facility] Comment on above: Performed By: #### L [id number] #### [facility] [address] [place] [address] Monocytes (Bld) [#/Vol] 0.94 10*3/uL Normal 0.10-1.00 [facility] Comment on above: Performed By: #### L [id number] #### [facility] [address] [place] [address] Monocytes/100 WBC (Bld) 9.2 % Normal 5.0-12.0 [facility] Comment on above: Performed By: #### L [id number] #### [facility] ([facility]) [address] [place] [address] Neutrophils (Bld) [#/Vol] 7.66 10*3/uL High 1.60-7.60 [facility] Comment on above: Performed By: #### L [id number] #### [facility] ([facility]) [address] [place] [address] Neutrophils/100 WBC (Bld) 75.2 % High 40.0-72.0 [facility] Comment on above: Performed By: #### L [id number] #### [facility] ([facility]) [address] [place] [address] NRBC (PER 100 WBCS) BY AUTOMATED COUNT 0.0 % Normal 0 [facility] Comment on above: Performed By: #### L [id number] #### [facility] ([facility]) [address] [place] [address] PLATELETS (10*3/UL) IN BLOOD AUTOMATED COUNT 276 10*3/uL Normal 150-400 [facility] Comment on above: Performed By: #### L [id number] #### [facility] ([facility]) [address] [place] [address] RBC (Bld) [#/Vol] 5.43 10*6/uL Normal 4.20-5.70 [facility] Comment on above: Performed By: #### L [id number] #### [facility] ([facility]) [address] [address] WBC (Bld) [#/Vol] 10.18 10*3/uL Normal 4.00-10.60 [facility] Comment on above: Performed By: #### L [id number] #### [facility] ([facility]) [address] [place] [address] COMPREHENSIVE METABOLIC PANE Nitin 03-28-2023 Albumin [Mass/Vol] 4.7 g/dL Normal 3.5-5.7 [facility] Comment on above: Performed By: #### L [id number] ####[facility] ([facility])[address] [place] [address] ALP [Catalytic activity/Vol] 92 U/L Normal 34-104 [facility] Comment on above: Performed By: #### L [id number] ####[facility] ([facility])[address] [place] [address] ALT [Catalytic activity/Vol] 19 U/L Normal 7-52 [facility] Comment on above: Performed By: #### L [id number] ####[facility] ([facility])[address] [place] [address] Anion gap [Moles/Vol] 11 mmol/L Normal 7-20 [facility] Comment on above: Performed By: #### L [id number] ####[facility] ([facility])[address] [place] [address] AST [Catalytic activity/Vol] 17 U/L Normal 13-39 [facility] Comment on above: Performed By: #### L [id number] ####[facility] ([facility])[address] [place] [address] Bilirubin [Mass/Vol] 0.6 mg/dL Normal 0.3-1.0 [facility] Comment on above: Performed By: #### L [id number] ####[facility] ([facility])[address] [place] [address] Calcium [Mass/Vol] 9.9 mg/dL Normal 8.6-10.3 [facility] Comment on above: Performed By: #### L [id number] ####[facility] ([facility])[address] [place] [address] Chloride [Moles/Vol] 105 mmol/L Normal 98-107 [facility] Comment on above: Performed By: #### L [id number] ####[facility] ([facility])[address] [place] [address] CO2 [Moles/Vol] 27 mmol/L Normal 21-31 [facility] Comment on above: Performed By: #### L [id number] ####[facility] ([facility])[address] [place] [address] Creatinine [Mass/Vol] 1.21 mg/dL Normal 0.70-1.30 [facility] Comment on above: Performed By: #### L [id number] ####[facility] ([facility])[address] [place] [address] GLOMERULAR FILTRATION RATE ML/MIN/1.73 SQ M.PREDICTED 67.7 mL/min/1.73m*2 Normal >60.0 [facility] Comment on above: Result Comment: [facility]???s estimated glomerular filtration rate (eGFR) will [...] of individuals. Performed By: #### L [id number] ####[facility] ([facility])[address] [place] [address] Glucose [Mass/Vol] 136 mg/dL High 70-100 [facility] Comment on above: Performed By: #### L [id number] ####[facility] ([facility])[address] [place] [address] Potassium [Moles/Vol] 4.8 mmol/L Normal 3.5-5.1 [facility] Comment on above: Performed By: #### L [id number] ####[facility] ([facility])[address] [place] [address] Protein [Mass/Vol] 6.9 g/dL Normal 6.0-8.3 [facility] Comment on above: Performed By: #### L [id number] ####[facility] ([facility])[address] [place] [address] Sodium [Moles/Vol] 138 mmol/L Normal 136-145 [facility] Comment on above: Performed By: #### L [id number] ####[facility] [place] [address] Urea nitrogen [Mass/Vol] 20 mg/dL Normal 7-25 [facility] Comment on above: Performed By: #### L [id number] ####[facility] ([facility])[address] [place] [address] UREA NITROGEN/CREATININE (MASS RATIO) IN SER/PLAS 16.5 Normal [facility] Comment on above: Performed By: #### L [id number] ####[facility] [place] [address] Follow-Upon 03-28-2023 Follow-Up [id number] ZuleikaVishal Waldemar 1960 M Date Provider Department Center 03/28/2023 124-PETEY REDDING TXHumberto None Family History Problem Relation Age of Onset Alzheimer's disease Mother Coronary artery disease Father Family Status - Relation Status Age at Mother Father Level of Service:61416 [place] OFFICE/OUTPATIENT ESTABLISHED MOD MDM 30-39 MIN Reason for Visit and Comments: Kidney Follow-up [[id number]] - Patient have no concerns Normal [facility] LIPID PANELon 03-28-2023 CHOL/HDL 2.8 mg/dL Normal [facility] Comment on above: Performed By: #### L [id number] #### [facility] [address] [place] [address] Cholesterol [Mass/Vol] 125 mg/dL Normal 120-200 [facility] Comment on above: Performed By: #### L [id number] #### [facility] [address] [place] [address] Magnesium [Mass/Vol] 157 mg/dL High 40-149 [facility] Comment on above: Result Comment: TRIG LYCERIDE REFERENCE RANGE: 20 YEARS AND OLDER CARDIOVASCULAR RISK LESS THAN 150 mg/dL LOW RISK 150 TO 199 mg/dL BORDERLINE RISK 200 mg/dL AND GREATER HIGH RISK Performed By: #### L [id number] #### [facility] ([facility]) [address] [facility] [place] [address] Magnesium [Mass/Vol] 49 mg/dL Normal 0-160 [facility] Comment on above: Performed By: #### L [id number] #### [facility] ([facility]) [address] [facility] [place] [address] Magnesium [Mass/Vol] 45 mg/dL Normal 23-92 [facility] Comment on above: Performed By: #### L [id number] #### [facility] ([facility]) [address] [place] [address] NON HDL CHOL. (LDL+VLDL) 80 Normal [facility] Comment on above: Performed By: #### L [id number] #### [facility] [address] [place] [address] TOTAL VLDL-C 31 mg/dL Normal 0-40 [facility] Comment on above: Performed By: #### L [id number] #### [facility] ([facility]) [address] [place] [address] Labon 03-28-2023 Lab [id number] Vishal Duke 1960 M Date Provider Department [place] 03/28/2023 [id number] DRAW STATION KXT Draw [facility] Family History Problem Relation Age of Onset Alzheimer's disease Mother Coronary artery disease Father Family Status - Relation Status Age at Mother Father Normal [facility] MAGNESIUMon 03-28-2023 Magnesium [Mass/Vol] 1.5 mg/dL Low 1.9-2.7 [facility] Comment on above: Performed By: #### L [id number] ####[facility] ([facility])[address] [place] [address] PHOSPHORUSon 03-28-2023 Magnesium [Mass/Vol] 3.6 mg/dL Normal 2.5-5.0 [facility] Comment on above: Performed By: #### L [id number] #### [facility] ([facility]) [address] [place] [address] TACROLIMUS LEVELon Tacrolimus (Bld) [Mass/Vol] 9.6 ng/mL Normal 5.0-20.0 [facility] Comment on above: Result Comment: The [employer] Tacrolimus assay is a delayed one-step immunoassay for the quantitative determination of tacrolimus in human whole blood using the chemiluminescent microparticle immunoassay (CMIA) technology with flexible assay protocols, referred to as Chemiflex. Performed By: #### L [id number] #### [facility] [address] [place] [address] URIC ACIDon 03-28-2023 Magnesium [Mass/Vol] 5.2 mg/dL Normal 4.4-7.6 [facility] Comment on above: Performed By: #### L [id number] #### [facility] ([facility]) [address] [place] [address] Orders Onlyon 03-08-2023 Orders Only [id number] Vishal Duke 1960 M Date Provider Department Center 03/08/2023 1971-FARRUKH BLANCAS TXP None Family History Problem Relation Age of Onset Alzheimer's disease Mother Coronary artery disease Father Family Status - Relation Status Age at Mother Father Normal [facility] BILIRUBIN, DIRECTon 02-10-20 Magnesium [Mass/Vol] 0.1 mg/dL Normal 0-0.2 [facility] Comment on above: Performed By: #### L [id number] #### [facility] ([facility]) [address] [place] [address] CBC WITH AUTO DIFFERENTIALon 02-09-2023 Basophils (Bld) [#/Vol] 0.10 10*3/uL Normal 0.00-0.20 [facility] Comment on above: Performed By: #### L [id number] ####[facility] ([facility] [place] [address] Basophils/100 WBC (Bld) 1.0 % Normal 0.0-1.0 [facility] Comment on above: Performed By: #### L [id number] ####[facility] ([facility] [place] [address] Eosinophils (Bld) [#/Vol] 0.10 10*3/uL Normal 0.00-0.50 [facility] Comment on above: Performed By: #### L [id number] ####[facility] (BEAKER)[address] [place] [address] Eosinophils/100 WBC (Bld) 1.0 % Normal 0.0-6.0 [facility] Comment on above: Performed By: #### L [id number] ####[facility] (BEAKER)[address] [place] [address] Erythrocyte distribution width (RBC) [Ratio] 14.0 % Normal 11.5-15.0 [facility] Comment on above: Performed By: #### L [id number] ####[facility] (BEAKER)[address] [place], [place] [address] ERYTHROCYTE MEAN CORPUSCULAR HEMOGLOBIN CONCENTRATION (G/DL) BY AUTOMATED 32.3 g/dL Normal 32.0-35.0 [facility] Comment on above: Performed By: #### L [id number] ####[facility] (BEAKER)[address] [place] [address] Hematocrit (Bld) [Volume fraction] 46.4 % Normal 39.0-55.0 [facility] Comment on above: Performed By: #### L [id number] ####[facility] (BEAKER)[address] [place] [address] Hemoglobin (Bld) [Mass/Vol] 15.0 g/dL Normal 13.0-17.0 [facility] Comment on above: Performed By: #### L [id number] ####[facility] (BEAKER)[address] [place] [address] Immature granulocytes (Bld) [#/Vol] 0.09 10*3/uL Normal 0.00-0.20 [facility] Comment on above: Performed By: #### L [id number] ####[facility] (BEAKER)[address] [place] [address] Immature granulocytes/100 WBC (Bld) 0.9 % Normal 0.0-1.0 [facility] Comment on above: Performed By: #### L [id number] ####[facility] (BEAKER)[address] [place] [address] Lymphocytes (Bld) [#/Vol] 0.92 10*3/uL Low 1.20-4.00 [facility] Comment on above: Performed By: #### L [id number] ####[facility] (BEAKER)[address] [place] [address] Lymphocytes/100 WBC (Bld) 9.2 % Low 20.0-45.0 [facility] Comment on above: Performed By: #### L [id number] ####[facility] (BEAKER)[address] [place] [address] MCH (RBC) [Entitic mass] 29.5 pg Normal 27.0-33.0 [facility] Comment on above: Performed By: #### L [id number] ####[facility] (BEAKER)[address] [place] [address] MCV (RBC) [Entitic vol] 91.3 fL Normal 82.0-98.0 [facility] Comment on above: Performed By: #### L [id number] ####[facility] (BEAKER)[address] [place] [address] Monocytes (Bld) [#/Vol] 0.75 10*3/uL Normal 0.10-1.00 [facility] Comment on above: Performed By: #### L [id number] ####[facility] (BEAKER)[address] [place] [address] Monocytes/100 WBC (Bld) 7.5 % Normal 5.0-12.0 [facility] Comment on above: Performed By: #### L [id number] ####[facility] (BEAKER)[address] [place], [place] [address] Neutrophils (Bld) [#/Vol] 8.09 10*3/uL High 1.60-7.60 [facility] Comment on above: Performed By: #### L [id number] ####[facility] (BEAKER)[address] [place] [address] Neutrophils/100 WBC (Bld) 80.4 % High 40.0-72.0 [facility] Comment on above: Performed By: #### L [id number] ####[facility] (BEAKER)[address] [place] [address] NRBC (PER 100 WBCS) BY AUTOMATED COUNT 0.0 % Normal 0 [facility] Comment on above: Performed By: #### L [id number] ####[facility] (BEAKER)[address] [place] [address] PLATELETS (10*3/UL) IN BLOOD AUTOMATED COUNT 567 10*3/uL High 150-400 [facility] Comment on above: Performed By: #### L [id number] ####[facility] ([facility])[address] [place] [address] RBC (Bld) [#/Vol] 5.08 10*6/uL Normal 4.20-5.70 [facility] Comment on above: Performed By: #### L [id number] ####[facility] ([facility])[address] [place] [address] WBC (Bld) [#/Vol] 10.05 10*3/uL Normal 4.00-10.60 [facility] Comment on above: Performed By: #### L [id number] ####[facility] ([facility])[address] [place] [address] COMPREHENSIVE METABOLIC PANE Nitin 02-09-2023 Albumin [Mass/Vol] 4.5 g/dL Normal 3.5-5.7 [facility] Comment on above: Performed By: #### L [id number] #### [facility] ([facility]) [address] [place] [address] ALP [Catalytic activity/Vol] 132 U/L High 34-104 [facility] Comment on above: Performed By: #### L [id number] #### [facility] ([facility]) [address] [place] [address] ALT [Catalytic activity/Vol] 47 U/L Normal 7-52 [facility] Comment on above: Performed By: #### L [id number] #### [facility] ([facility]) [address] [place] [address] Anion gap [Moles/Vol] 13 mmol/L Normal 7-20 [facility] Comment on above: Performed By: #### L [id number] #### [facility] ([facility]) [address] [place] [address] AST [Catalytic activity/Vol] 27 U/L Normal 13-39 [facility] Comment on above: Performed By: #### L [id number] #### [facility] ([facility]) [address] [place] [address] Bilirubin [Mass/Vol] 0.6 mg/dL Normal 0.3-1.0 [facility] Comment on above: Performed By: #### L [id number] #### [facility] ([facility] [address] [place] [address] Calcium [Mass/Vol] 9.7 mg/dL Normal 8.6-10.3 [facility] Comment on above: Performed By: #### L [id number] #### [facility] ([facility] [address] [place] [address] Chloride [Moles/Vol] 102 mmol/L Normal 98-107 [facility] Comment on above: Performed By: #### L [id number] #### [facility] ([facility] [address] [place] [address] CO2 [Moles/Vol] 27 mmol/L Normal 21-31 [facility] Comment on above: Performed By: #### L [id number] #### [facility] ([facility]) [address] [place] [address] Creatinine [Mass/Vol] 1.17 mg/dL Normal 0.70-1.30 [facility] Comment on above: Performed By: #### L [id number] #### [facility] ([facility]) [address] [place] [address] GLOMERULAR FILTRATION RATE ML/MIN/1.73 SQ M.PREDICTED 70.5 mL/min/1.73m*2 Normal >60.0 [facility] Comment on above: Result Comment: [facility]???s estimated glomerular filtration rate (eGFR) will [...] group of individuals. Performed By: #### L [id number] #### [facility] ([facility]) [address] [place] [address] Glucose [Mass/Vol] 111 mg/dL High 70-100 [facility] Comment on above: Performed By: #### L [id number] #### [facility] ([facility]) [address] [place] [address] Potassium [Moles/Vol] 4.6 mmol/L Normal 3.5-5.1 [facility] Comment on above: Performed By: #### L [id number] #### [facility] ([facility]) [address] [place] [address] Protein [Mass/Vol] 7.2 g/dL Normal 6.0-8.3 [facility] Comment on above: Performed By: #### L [id number] #### [facility] ([facility]) [address] [place] [address] Sodium [Moles/Vol] 137 mmol/L Normal 136-145 [facility] Comment on above: Performed By: #### L [id number] #### [facility] ([facility]) [address] [place] [address] Urea nitrogen [Mass/Vol] 19 mg/dL Normal 7-25 [facility] Comment on above: Performed By: #### L [id number] #### [facility] ([facility]) [address] [place] [address] UREA NITROGEN/CREATININE (MASS RATIO) IN SER/PLAS 16.2 Normal [facility] Comment on above: Performed By: #### L [id number] #### [facility] ([facility]) [address] [place] [address] Follow-Upon 02-09-2023 Follow-Up [id number] Juan Diego Dukeren Waldemar 1960 M Date Provider Department Center 02/09/2023 263-BOBBY MALDONADO TXP None Family History Problem Relation Age of Onset Alzheimer's disease Mother Coronary artery disease Father Family Status - Relation Status Age at Mother Father Level of Service:24240 [place] OFFICE/OUTPATIENT ESTABLISHED LOW MDM 20-29 MIN Reason for Visit and Comments: Kidney Follow-up [] - No major concerns today Normal [facility] HEMOGLOBIN A1Con 02-09-2023 Glucose [Mass/Vol] 134 mg/dL Normal [facility] Comment on above: Performed By: #### L [id number] #### [facility] ([facility]) [address] [place] [address] HbA1c (Bld) [Mass fraction] 6.3 % High 4.0-6.0 [facility] Comment on above: Performed By: #### L [id number] #### [facility] ([facility]) [address] [place] [address] LIPID PANELon 02-09-2023 CHOL/HDL 3.6 mg/dL Normal [facility] Comment on above: Performed By: #### L [id number] ####[facility] ([facility])[address] [place] [address] Cholesterol [Mass/Vol] 126 mg/dL Normal 120-200 [facility] Comment on above: Performed By: #### L [id number] ####[facility] ([facility])[address] [place] [address] Magnesium [Mass/Vol] 214 mg/dL High 40-149 [facility] Comment on above: Result Comment: TRIG LYCERIDE REFERENCE RANGE: 20 YEARS AND OLDER CARDIOVASCULAR RISK LESS THAN 150 mg/dL LOW RISK 150 TO 199 mg/dL BORDERLINE RISK 200 mg/dL AND GREATER HIGH RISK Performed By: #### L [id number] ####[facility] ([employer])[address] [place] [address] Magnesium [Mass/Vol] 48 mg/dL Normal 0-160 [facility] Comment on above: Performed By: #### L [id number] ####[facility] ([facility])[address] [place] [address] Magnesium [Mass/Vol] 35 mg/dL Normal 23-92 [facility] Comment on above: Performed By: #### L [id number] ####[facility] ([facility])[address] [place] [address] NON HDL CHOL. (LDL+VLDL) 91 Normal [facility] Comment on above: Performed By: #### L [id number] ####[facility] ([facility])[address] [place] [address] TOTAL VLDL-C 43 mg/dL High 0-40 [facility] Comment on above: Performed By: #### L [id number] ####[facility] ([facility])[address] [place] [address] Labon 02-09-2023 Lab [id number] Vishal Duke 1960 M Date Provider Department [place] 02/09/2023 [id number]-LOT DRAW STATION KXT Draw [facility] Family History Problem Relation Age of Onset Alzheimer's disease Mother Coronary artery disease Father Family Status - Relation Status Age at Mother Father Normal [facility] MAGNESIUMon 02-09-2023 Magnesium [Mass/Vol] 1.7 mg/dL Low 1.9-2.7 [facility] Comment on above: Performed By: #### L [id number] #### [facility] ([facility]) [address] [place] [address] PHOSPHORUSon 02-09-2023 Magnesium [Mass/Vol] 3.7 mg/dL Normal 2.5-5.0 [facility] Comment on above: Performed By: #### L [id number] #### [facility] ([facility]) [address] [place] [address] TACROLIMUS LEVELon Tacrolimus (Bld) [Mass/Vol] 3.3 ng/mL Low 5.0-20.0 [facility] Comment on above: Result Comment: The [employer] Tacrolimus assay is a delayed one-step immunoassay for the quantitative determination of tacrolimus in human whole blood using the chemiluminescent microparticle immunoassay (CMIA) technology with flexible assay protocols, referred to as Chemiflex. Performed By: #### L [id number] #### [facility] ([facility]) [address] [place] [address] TESTOSTERONE, FREE AND TOTAL , AND SHBGon 02-09-2023 SEX HORMONE BINDING GLOBULIN (NMOL/L) IN SER/PLAS 17 nmol/L Normal 11-80 [facility] Comment on above: Performed By: #### L [id number] #### [facility] ([facility]) [address] [place] [address] TESTOSTERONE (NG/DL) IN SER/PLAS 495 ng/dL Normal 220-1000 [facility] Comment on above: Performed By: #### L [id number] #### [facility] ([facility]) [address] [place] [address] TESTOSTERONE FREE (NG/ML) IN SER/PLAS 142.2 pg/mL Normal 47-244 [facility] Comment on above: Result Comment: The concentration of free testosterone is derived from a mathematical expression based on the constant for the binding of testosterone to albumin and/or sex hormone binding globulin. Test Performed by [facility] [address] [place] [id number] - Released 02/09/2023 20:38 Performed By: #### L [id number] #### [facility] ([facility]) [address] [place] [address] URIC ACIDon 02-09-2023 Magnesium [Mass/Vol] 5.1 mg/dL Normal 4.4-7.6 [facility] Comment on above: Performed By: #### L [id number] #### [facility] ([facility]) [address] [place] [address] Reminderson 02-03-2023 Reminders - From: Tamara White MA To: Tamara White MA; Sent: 02/02/2023 10:39:43 EDT Show up: 02/02/2023 10:40:00 EDT Subject: colon recall Reminder Message [address] Cerrato 02/01/13 first recall letter sent [facility] Patient Letter FTon 2022 Patient Letter [facility] (Inserted Image. Lacy ble to display) February 02, 2023 VISHAL Robertson [facility] [place] [id number] : 1960 Dear Vishal, This is a reminder that you are due for an appointment with [facility]. Please contact our office at [phone] to schedule your 10 year colon recall Thank you, [facility] 30on 01-25-2023 30 Problem: Neurosensor y - [...] of patient condition declining or worsening Normal [facility] 30 Daily Case Managemen t Update [...] PT Recommendations: OT Recommendations: New Consults: Normal [facility] BASIC METABOLIC PANELon 01-15 Anion gap [Moles/Vol] 10 mmol/L Normal 7-20 [facility] Comment on above: Performed By: #### L [id number] #### [facility] ([facility]) [address] [place] [address] Calcium [Mass/Vol] 6.6 mg/dL Low 8.6-10.3 [facility] Comment on above: Performed By: #### L [id number] #### [facility] (BEAKER) [address] [place] [address] Chloride [Moles/Vol] 116 mmol/L High 98-107 [facility] Comment on above: Performed By: #### L [id number] #### [facility] (BEAKER) [address] [place] [address] CO2 [Moles/Vol] 20 mmol/L Low 21-31 [facility] Comment on above: Performed By: #### L [id number] #### [facility] (BEAKER) [address] [place] [address] Creatinine [Mass/Vol] 0.92 mg/dL Normal 0.70-1.30 [facility] Comment on above: Performed By: #### L [id number] #### [facility] ([facility]) [address] [place] [address] GLOMERULAR FILTRATION RATE ML/MIN/1.73 SQ M.PREDICTED 94.1 mL/min/1.73m*2 Normal >60.0 [facility] Comment on above: Result Comment: [facility]???s estimated glomerular filtration rate (eGFR) will [...] group of individuals. Performed By: #### L [id number] #### [facility] ([facility]) [address] [place] [address] Glucose [Mass/Vol] 113 mg/dL High 70-100 [facility] Comment on above: Performed By: #### L [id number] #### [facility] ([facility]) [address] [place] [address] Potassium [Moles/Vol] 3.3 mmol/L Low 3.5-5.1 [facility] Comment on above: Performed By: #### L [id number] #### [facility] ([facility]) [address] [place] [address] Sodium [Moles/Vol] 143 mmol/L Normal 136-145 [facility] Comment on above: Performed By: #### L [id number] #### [facility] ([facility]) [address] [place] [address] Urea nitrogen [Mass/Vol] 17 mg/dL Normal 7-25 [facility] Comment on above: Performed By: #### L [id number] #### [facility] ([facility]) [address] [place] [address] UREA NITROGEN/CREATININE (MASS RATIO) IN SER/PLAS 18.5 Normal [facility] Comment on above: Performed By: #### L [id number] #### [facility] ([facility]) [address] [place] [address] CBCon 01-25-2023 Erythrocyte distribution width (RBC) [Ratio] 14.8 % Normal 11.5-15.0 [facility] Comment on above: Performed By: #### L [id number] #### [facility] ([facility]) [address] [place] [address] ERYTHROCYTE MEAN CORPUSCULAR HEMOGLOBIN CONCENTRATION (G/DL) BY AUTOMATED 32.2 g/dL Normal 32.0-35.0 [facility] Comment on above: Performed By: #### L [id number] #### [facility] ([facility]) [address] [place] [address] Hematocrit (Bld) [Volume fraction] 42.5 % Normal 39.0-55.0 [facility] Comment on above: Performed By: #### L [id number] #### [facility] ([facility]) [address] [place] [address] Hemoglobin (Bld) [Mass/Vol] 13.7 g/dL Normal 13.0-17.0 [facility] Comment on above: Performed By: #### L [id number] #### [facility] ([facility]) [address] [place] [address] MCH (RBC) [Entitic mass] 29.7 pg Normal 27.0-33.0 [facility] Comment on above: Performed By: #### L [id number] #### [facility] ([facility]) [address] [address] MCV (RBC) [Entitic vol] 92.2 fL Normal 82.0-98.0 [facility] Comment on above: Performed By: #### L [id number] #### [facility] ([facility]) [address] [place] [address] PLATELETS (10*3/UL) IN BLOOD AUTOMATED COUNT 232 10*3/uL Normal 150-400 [facility] Comment on above: Performed By: #### L [id number] #### [facility] ([facility]) [address] [place] [address] RBC (Bld) [#/Vol] 4.61 10*6/uL Normal 4.20-5.70 [facility] Comment on above: Performed By: #### L [id number] #### [facility] ([facility]) [address] [place] [address] WBC (Bld) [#/Vol] 8.82 10*3/uL Normal 4.00-10.60 [facility] Comment on above: Performed By: #### L [id number] #### [facility] ([facility]) [address] [place] [address] DSon 01-25-2023 DS Admission Admitted 01/24/2023 for [...] Medications These medications were sent to [facility] - [place], [place] - [address] [place] [address] [place] [address] [facility] [place] [address], [facility] [address] docusate sodium 100 mg capsule methocarbamol 500 [...] (*) SODIU (more content not included)... Normal [facility] MAGNESIUMon 01-25-2023 Magnesium [Mass/Vol] 1.1 mg/dL Low 1.9-2.7 [facility] Comment on above: Performed By: #### L [id number] #### [facility] (BEAKER) [address] [place] [address] NURSNOTEon 01-25-2023 NURSNOTE RN agrees with previ ous nurse assessment. Normal [facility] PHOSPHORUSon 01-25-2023 Magnesium [Mass/Vol] 3.0 mg/dL Normal 2.5-5.0 [facility] Comment on above: Performed By: #### L [id number] #### [facility] (BEAKER) [address] [place] [address] POCT GLUCOSE METER UNSOLICIT ED RESULTSon 01-25-2023 Glucose [Mass/Vol] 137 mg/dL High 70-105 [facility] Comment on above: Order Comment: Waive d Testing in the ED is performed under the ED CLIA certificate #[id number]. Result Comment: [email or web address] Performed By: #### L [id number] #### [facility] ([facility]) [address] [place] [address] Glucose [Mass/Vol] 144 mg/dL High 70-105 [facility] Comment on above: Order Comment: Waive d Testing in the ED is performed under the ED CLIA certificate #[id number]. Result Comment: [email or web address] Performed By: #### L [id number] #### [facility] ([facility]) [address] [place] [address] Glucose [Mass/Vol] 116 mg/dL High 70-105 [facility] Comment on above: Order Comment: Waive d Testing in the ED is performed under the ED CLIA certificate #[id number]. Result Comment: [email or web address] Performed By: #### L [id number] #### [facility] ([facility]) [address] [place] [address] Glucose [Mass/Vol] 130 mg/dL High 70-105 [facility] Comment on above: Order Comment: Waive d Testing in the ED is performed under the ED CLIA certificate #[id number]. Result Comment: [email or web address] Performed By: #### L [id number] #### [facility] ([facility]) [address] [place] [address] TACROLIMUS LEVELon 3 Tacrolimus (Bld) [Mass/Vol] 6.6 ng/mL Normal 5.0-20.0 [facility] Comment on above: Result Comment: The [employer] Tacrolimus assay is a delayed one-step immunoassay for the quantitative determination of tacrolimus in human whole blood using the chemiluminescent microparticle immunoassay (CMIA) technology with flexible assay protocols, referred to as Chemiflex. Performed By: #### L [id number] #### [facility] (BE[facility]ER) [address] [place] [address] ARTERIAL BLOOD GAS WITH CO-O XIMETRYon 01-24-2023 Base excess Calc (Bld) [Moles/Vol] -4.3000 mmol/L Low -2.0-3.0 [facility] Comment on above: Order Comment: OR GA S Performed By: #### L [id number] ####[facility] [facility] [id number] [place] [address] [place] CARBOXYHEMOGLOBIN/H EMOGLOBIN TOTAL % IN BLOOD 1.0 % Normal 0.0-3.0 [facility] Comment on above: Order Comment: OR GA S Performed By: #### L [id number] ####[facility] [id number] [place] [address] [facility] CO2 (Bld) [Partial pressure] 35 mm[Hg] Normal 35-48 [facility] Comment on above: Order Comment: OR GA S Performed By: #### L [id number] ####[facility] [id number] [place] [address] [place] DEOXYGENATED HEMOGLOBIN IN BLOOD 1.9 % Normal 1-5 [facility] Comment on above: Order Comment: OR GA S Performed By: #### L [id number] ####[facility] [id number] [place] [address] [place] HCO3 (Bld) [Moles/Vol] 20.2 mmol/L Low 21.0-28.0 [facility] Comment on above: Order Comment: OR GA S Performed By: #### L [id number] ####[facility] [id number] [place] [address] [place] Hemoglobin (Bld) [Mass/Vol] 14.9 g/dL Normal 11.7-17.4 [facility] Comment on above: Order Comment: OR GA S Performed By: #### L [id number] ####[facility] [id number] [place] [address] [place] METHEMOGLOBIN/100 IN BLOOD 0.5 % Normal 0.0-1.5 [facility] Comment on above: Order Comment: OR GA S Performed By: #### L [id number] ####[facility] [id number] [place] [address] [facility] Oxygen (Bld) [Partial pressure] 104 mm[Hg] High 83-100 [facility] Comment on above: Order Comment: OR GA S Performed By: #### L [id number] ####[facility] [id number] [place] [address] [facility] OXYGEN SATURATION (%) IN ARTERIAL BLOOD 98.1 % High 94.0-98.0 [facility] Comment on above: Order Comment: OR GA S Performed By: #### L [id number] ####[facility] [id number] [place] [address] [facility] OXYGENATED HEMOGLOBIN IN BLOOD 96.6 % High 90.0-95.0 [facility] Comment on above: Order Comment: OR GA S Performed By: #### L [id number] ####[facility] [id number] [place] [address] [facility] pH (Bld) 7.37 [pH] Normal 7.35-7.45 [facility] Comment on above: Order Comment: OR GA S Performed By: #### L [id number] ####[facility] [id number] [place] [address] [facility] SOURCE OF OXYGEN Vent Normal [facility] Comment on above: Order Comment: OR GA S Performed By: #### L [id number] ####[facility] [id number] [place] [address] [facility] Base excess Calc (Bld) [Moles/Vol] -4.0000 mmol/L Low -2.0-3.0 [facility] Comment on above: Performed By: #### L [id number] ####[facility] [id number] [place] [address] [facility] CARBOXYHEMOGLOBIN/H EMOGLOBIN TOTAL % IN BLOOD 0.8 % Normal 0.0-3.0 [facility] Comment on above: Performed By: #### L [id number] ####[facility] [id number] [place] [address] [place] CO2 (Bld) [Partial pressure] 46 mm[Hg] Normal 35-48 [facility] Comment on above: Performed By: #### L [id number] ####[facility] [id number] [place] [address] [place] DEOXYGENATED HEMOGLOBIN IN BLOOD 1.3 % Normal 1-5 [facility] Comment on above: Performed By: #### L [id number] ####[facility] [id number] [place] [address] [place] HCO3 (Bld) [Moles/Vol] 22.6 mmol/L Normal 21.0-28.0 [facility] Comment on above: Performed By: #### L [id number] ####[facility] [id number] [place] [address] [place] Hemoglobin (Bld) [Mass/Vol] 15.0 g/dL Normal 11.7-17.4 [facility] Comment on above: Performed By: #### L [id number] ####[facility] [id number] [place] [address] [place] METHEMOGLOBIN/100 IN BLOOD 0.5 % Normal 0.0-1.5 [facility] Comment on above: Performed By: #### L [id number] ####[facility] RESP[facility] [id number] [place] [address] [place] Oxygen (Bld) [Partial pressure] 137 mm[Hg] High 83-100 [facility] Comment on above: Performed By: #### L [id number] ####[facility] RES[facility] [id number] [place] [address] [place] OXYGEN SATURATION (%) IN ARTERIAL BLOOD 98.7 % High 94.0-98.0 [facility] Comment on above: Performed By: #### L [id number] ####[facility] [id number] [place] [address] [place] OXYGENATED HEMOGLOBIN IN BLOOD 97.4 % High 90.0-95.0 [facility] Comment on above: Performed By: #### L [id number] ####[facility] [id number] [place] [address] [facility] pH (Bld) 7.30 [pH] Low 7.35-7.45 [facility] Comment on above: Performed By: #### L [id number] ####[facility] [id number] [place] [address] [facility] SOURCE OF OXYGEN Vent Normal [facility] Comment on above: Performed By: #### L [id number] ####[facility] [id number] [place] [address] [facility] BASIC METABOLIC PANELon 01-15 Anion gap [Moles/Vol] 14 mmol/L Normal 7-20 [facility] Comment on above: Performed By: #### L [id number] #### [facility] ([facility]AKER) [address] [place] [address] Calcium [Mass/Vol] 8.5 mg/dL Low 8.6-10.3 [facility] Comment on above: Performed By: #### L [id number] #### [facility] ([facility]) [address] [place] [address] Chloride [Moles/Vol] 113 mmol/L High 98-107 [facility] Comment on above: Performed By: #### L [id number] #### [facility] ([facility]) [address] [place] [address] CO2 [Moles/Vol] 20 mmol/L Low 21-31 [facility] Comment on above: Performed By: #### L [id number] #### [facility] ([facility]ER) [address] [place] [address] Creatinine [Mass/Vol] 1.12 mg/dL Normal 0.70-1.30 [facility] Comment on above: Performed By: #### L [id number] #### [facility] ([facility]) [address] [place] [address] GLOMERULAR FILTRATION RATE ML/MIN/1.73 SQ M.PREDICTED 74.3 mL/min/1.73m*2 Normal >60.0 [facility] Comment on above: Result Comment: [facility]???s estimated glomerular filtration rate (eGFR) will [...] group of individuals. Performed By: #### L [id number] #### [facility] ([facility]) [address] [place] [address] Glucose [Mass/Vol] 148 mg/dL High 70-100 [facility] Comment on above: Performed By: #### L [id number] #### [facility] ([facility]) [address] [place] [address] Potassium [Moles/Vol] 4.6 mmol/L Normal 3.5-5.1 [facility] Comment on above: Performed By: #### L [id number] #### [facility] ([facility]) [address] [place] [address] Sodium [Moles/Vol] 142 mmol/L Normal 136-145 [facility] Comment on above: Performed By: #### L [id number] #### [facility] ([facility]) [address] [facility] [place] [address] Urea nitrogen [Mass/Vol] 20 mg/dL Normal 7-25 [facility] Comment on above: Performed By: #### L [id number] #### [facility] ([facility]) [address] [place] [address] UREA NITROGEN/CREATININE (MASS RATIO) IN SER/PLAS 17.9 Normal [facility] Comment on above: Performed By: #### L [id number] #### [facility] ([facility]) [address] [place] [address] CALCIUM, IONIZEDon CALCIUM IONIZED (MMOL/L) IN BLOOD 1.18 mmol/L Normal 1.15-1.33 [facility] Comment on above: Performed By: #### C ALCIUM, IONIZED ####[facility] [id number] [place] [address] [facility] CALCIUM IONIZED (MMOL/L) IN BLOOD 1.12 mmol/L Low 1.15-1.33 [facility] Comment on above: Performed By: #### C ALCIUM, IONIZED ####[facility] [id number] [place] [address] [facility] CBCon 01-24-2023 Erythrocyte distribution width (RBC) [Ratio] 14.5 % Normal 11.5-15.0 [facility] Comment on above: Performed By: #### L [id number] #### [facility] ([facility]) [address] [place] [address] ERYTHROCYTE MEAN CORPUSCULAR HEMOGLOBIN CONCENTRATION (G/DL) BY AUTOMATED 33.7 g/dL Normal 32.0-35.0 [facility] Comment on above: Performed By: #### L [id number] #### [facility] [address] [place] [address] Hematocrit (Bld) [Volume fraction] 44.2 % Normal 39.0-55.0 [facility] Comment on above: Performed By: #### L [id number] #### [facility] [address] [place] [address] Hemoglobin (Bld) [Mass/Vol] 14.9 g/dL Normal 13.0-17.0 [facility] Comment on above: Performed By: #### L [id number] #### [facility] (BEAKER) [address] [place] [address] MCH (RBC) [Entitic mass] 30.5 pg Normal 27.0-33.0 [facility] Comment on above: Performed By: #### L [id number] #### [facility] ([facility]ER) [address] [place] [address] MCV (RBC) [Entitic vol] 90.4 fL Normal 82.0-98.0 [facility] Comment on above: Performed By: #### L [id number] #### [facility] (BEAKER) [address] [place] [address] PLATELETS (10*3/UL) IN BLOOD AUTOMATED COUNT 230 10*3/uL Normal 150-400 [facility] Comment on above: Performed By: #### L [id number] #### [facility] [address] [place] [address] RBC (Bld) [#/Vol] 4.89 10*6/uL Normal 4.20-5.70 [facility] Comment on above: Performed By: #### L [id number] #### [facility] [address] [place] [address] WBC (Bld) [#/Vol] 11.18 10*3/uL High 4.00-10.60 [facility] Comment on above: Performed By: #### L [id number] #### [facility] [address] [place] [address] HISTOLOGY - TISSUE EXAMon LAB AP CASE REPORT Normal [facility] Comment on above: Order Comment: Pre-o p diagnosis:PKD (polycystic kidney disease) [Q61.3] Result Comment: Surg ical Pathology Case: [id number] Authorizing Provider: Bobby Maldonado MD Collected: 01/24/2023 1630 Ordering Location: [facility] Main Operating Room Received: 01/24/2023 1721 Pathologist: Vaishnavi Magallon MD Specimens: A) - Kidney, RIGHT KIDNEY B) - Kidney, LEFT KIDNEY Performed By: #### L [id number] ####[facility] (BEAKER)[address] [place] [address] LAB AP CLINICAL INFORMATION Normal [facility] Comment on above: Order Comment: Pre-o p diagnosis:PKD (polycystic kidney disease) [Q61.3] Result Comment: Post -Op Diagnoses Q61.3 - PKD (polycystic kidney disease) [ICD-10-CM] Performed By: #### L [id number] ####[facility] ([place]IL[facility])[address] [place] [address] LAB AP GROSS DESCRIPTION A. Kidney. Normal [facility] Comment on above: Order Comment: Pre-o [...] are identified in the perinephric adipose tissue. Hand Packer/Packager sections are submitted as follows: A1 Vascular and ureter margin, en face A2 Superior pole A3 Mid kidney A4 Inferior pole Rubens Cornejo, Pathologists' Creative Services Specialist Student Hussein Lemus, Pathologists' Creative Services Specialist B. Kidney. Part B is received in [...] are identified in the perinephric adipose tissue. Hand Packer/Packager sections are submitted as follows: A1 Vascular and ureter margin, en face A2 Superior pole A3 Mid kidney A4 Inferior pole B5 Largest cyst with clot B6 Possible adrenal glands Rubens Cornejo, Pathologists' Creative Services Specialist Student Hussein Lemus Pathologists' Creative Services Specialist Performed By: #### L [id number] ####[facility] ([facility])[address] [place] [address] LAB AP MICROSCOPIC DESCRIPTION Microscopic examination performed. [facility] Comment on above: Order Comment: Pre-o p diagnosis:PKD (polycystic kidney disease) [Q61.3] Performed By: #### L [id number] ####[facility] ([facility] [place] [address] LAB AP REPORT FINAL DIAGNOSIS NARRATIVE [facility] Comment on above: Order Comment: Pre-o p diagnosis:PKD (polycystic kidney disease) [Q61.3] Result Comment: A. K idney, right, nephrectomy: - Polycystic kidney disease B. Kidney, left, nephrectomy: - Polycystic kidney disease - No significant pathologic findings in adrenal tissue Performed By: #### L [id number] ####[facility] ([facility] [place] [address] [facility] 01-24-2023 Dr. Lila Campos , Dr. Giovana Ambrose, [...] The ad (more content not included)... Normal [facility] MAGNESIUMon 01-24-2023 Magnesium [Mass/Vol] 1.3 mg/dL Low 1.9-2.7 [facility] Comment on above: Performed By: #### L [id number] #### [facility] (BEAKER) [address] [place] [address] OPNOTEon 01-24-2023 OPNOTE NEPHRECTOMY, ROBOT-ASSISTED (B) Operative Note Date: 01/24/2023 Location: [facility] OR Name: Vishal Duke, : 1960, Diagnosis Pre-op Diagnosis * PKD (polycystic kidney disease) [Q61.3] Post-op Diagnosis * PKD (polycystic kidney disease) [Q61.3] Procedures ROBOTIC ASSISTED BILATERAL NEPHRECTOMY Surgeons * Bobby Maldonado - Primary RESIDENT Amelia Olson MD [facility] Urology PGY4 Procedure Summary Anesthesia: General [...] - TISSUE EXAM Bobby Maldonado MD 01/24/23 1630 No Routine [id number] Description: RIGHT KIDNEY B Kidney Tissue HISTOLOGY - TISSUE EXAM Bobby Maldonado MD 01/24/23 1630 No Routine [id number] Description: LEFT KIDNEY Staff: Plastic Card Grader Cardroom: Nany Rios; Shelby Sal RN Relief Plastic Card Grader Cardroom: Pura Dimas, TATO; Jos Pete, TATO Relief Scrub: Fadi León CST Scrub Person: Nathalie Quintero, ELAINE; Maceypetty Parvin Clinical Psychology Professor: Jovanna Niño RN; Joyce Caraballo RN; Chichi Gutierrez CSA Orientee Scrub: Niya Adler CST Indications: Vishal Duke is an 62 y.o. male who is having End-stage renal disease secondary to Polycystic Kidneys who underwent donor kidney transplant on 08/15/2017. Patient was still having abdominal pain 2/2 to PCKD iqugmiut kidneys. Procedure Details: The patient was seen [...] one 12mm robotic port and a 5mm paraprofessional education assistant port in alinear fashion. An additional [...] for 12 robotic port and 5 mm paraprofessional education assistant port were all closed with 4-0 [...] the colon (more content not included)... Normal [facility] PHOSPHORUSon 01-24-2023 Magnesium [Mass/Vol] 4.9 mg/dL Normal 2.5-5.0 [facility] Comment on above: Performed By: #### L [id number] ####[facility] ([facility])[address] [place] [address] POCT PERFUSION PANEL UNSOLIC ITED RESULTSon 01-24-2023 CO2 [Moles/Vol] 22.0 mmol/L Normal 21.0-29.0 [facility] Comment on above: Performed By: #### L [id number] #### [facility] ([facility]) [address] [place] [address] Glucose [Mass/Vol] 165 mg/dL High 70-105 [facility] Comment on above: Performed By: #### L [id number] #### [facility] [address] [place] [address] HCO3 (Bld) [Moles/Vol] 21.0 mmol/L Low 23.0-28.0 [facility] Comment on above: Performed By: #### L [id number] #### [facility] (BEAKER) [address] [place] [address] Hematocrit (Bld) [Volume fraction] 41 % Normal 38-51 [facility] Comment on above: Performed By: #### L [id number] #### [facility] [address] [place] [address] Hemoglobin (Bld) [Mass/Vol] 13.9 g/dL Normal 12.0-17.0 [facility] Comment on above: Performed By: #### L [id number] #### [facility] ([facility] [address] [place] [address] POCT BASE EXCESS -6.0 mmol/L Low -2.0-3.0 [facility] Comment on above: Performed By: #### L [id number] #### [facility] ([facility]) [address] [place] [address] POCT IONIZED CALCIUM 1.58 mmol/L Critically high 1.12-1.32 [facility] Comment on above: Performed By: #### L [id number] #### [facility] [address] [place] [address] POCT PCO2 46.9 mmHg Normal 41.0-51.0 [facility] Comment on above: Performed By: #### L [id number] #### [facility] (BEAKER) [address] [place] [address] POCT PH 7.26 Low 7.31-7.41 [facility] Comment on above: Performed By: #### L [id number] #### [facility] (BEAKER) [address] [place] [address] POCT PO2 124 mmHg High 80-105 [facility] Comment on above: Performed By: #### L [id number] #### [facility] [address] [place] [address] POCT SO2 98 % Normal 95-98 [facility] Comment on above: Performed By: #### L [id number] #### [facility] ([facility]) [address] [place] [address] Potassium [Moles/Vol] 4.2 mmol/L Normal 3.5-4.9 [facility] Comment on above: Performed By: #### L [id number] #### [facility] ([facility]) [address] [place] [address] Sodium [Moles/Vol] 140 mmol/L Normal 138.0-146.0 [facility] Comment on above: Performed By: #### L [id number] #### [facility] ([facility]) [address] [place] [address] Glucose [Mass/Vol] 118 mg/dL High 70-105 [facility] Comment on above: Performed By: #### L [id number] ####[facility] ([facility])[address] [place] [address] POCT BASE EXCESS Normal [facility] Comment on above: Performed By: #### L [id number] ####[facility] ([facility])[address] [place] [address] POCT HCO3 Normal [facility] Comment on above: Performed By: #### L [id number] ####[facility] ([facility])[address] [place] [address] POCT HEMATOCRIT Normal [facility] Comment on above: Performed By: #### L [id number] ####[facility] ([facility])[address] [place] [address] POCT HEMOGLOBIN Normal [facility] Comment on above: Performed By: #### L [id number] ####[facility] ([facility])[address] [place] [address] POCT IONIZED CALCIUM Normal [facility] Comment on above: Performed By: #### L [id number] ####[facility] (BEAKER)[address] [place] [address] POCT PCO2 Normal [facility] Comment on above: Performed By: #### L [id number] ####[facility] (BEAKER)[address] [place] [address] POCT PH Normal [facility] Comment on above: Performed By: #### L [id number] ####[facility] (BEAKER)[address] [place] [address] POCT PO2 Normal [facility] Comment on above: Performed By: #### L [id number] ####[facility] (BEAKER)[address] [place] [address] POCT SO2 Normal [facility] Comment on above: Performed By: #### L [id number] ####[facility] (BEAKER)[address] [place] [address] POCT SODIUM Normal [facility] Comment on above: Performed By: #### L [id number] ####[facility] (BEAKER)[address] [place] [address] POCT TOTAL CO2 Normal [facility] Comment on above: Performed By: #### L [id number] ####[facility] (BEAKER)[address] [place] [address] Potassium [Moles/Vol] 3.9 mmol/L Normal 3.5-4.9 [facility] Comment on above: Performed By: #### L [id number] ####[facility] (BEAKER)[address] [place] [address] POTASSIUM, WHOLE BLOODon Potassium [Moles/Vol] 4.3 mmol/L Normal 3.5-5.1 [facility] Comment on above: Performed By: #### P OTASSIUM, WHOLE BLOOD ####[facility] RESPIRATORY [id number] [place] [address] [place] Potassium [Moles/Vol] 4.1 mmol/L Normal 3.5-5.1 [facility] Comment on above: Performed By: #### L [id number] #### [facility] (BEAKER) [address] [place] [address] SODIUM, WHOLE BLOODon 2022 SODIUM, WHOLE BLOOD 136 Normal 136-145 [facility] Comment on above: Performed By: #### L [id number] #### [facility] (BEAKER) [address] [facility] [place] [address] SODIUM, WHOLE BLOOD 135 Low 136-145 [facility] Comment on above: Performed By: #### S ODIUM, WHOLE BLOOD ####[facility] RESPIRATORY [id number] [place] [address] [place] Orders Onlyon 01-20-2023 Orders Only [id number] Vishal Duke 1960 Date Provider Department Center 01/20/2023 AMY BRODY [facility] Family History Problem Relation Age of Onset Alzheimer's disease Mother Coronary artery disease Father Family Status - Relation Status Age at Mother Father Normal [facility] [id number] 01-12-2023 [id number] MEDICATIONS TO TAKE DAY OF SURGERY WITH SIP OF WATER USE ALBUTEROL INHALER TAKE NEXIUM ISOSORBIDE MYFORTIC TACROLIMUS METOPROLOL HOLD PLAVIX X 5 DAYS STOP 01/19/23 PT WILL COMPLETE EKG AT [facility] ON 01/13 IF YOU ARE GOING HOME AFTER YOUR SURGERY OR PROCEDURE, FOR YOUR SAFETY, YOUR SURGERY WILL BE CANCELLED IF BOTH OF THE FOLLOWING ARE NOT AVAILABLE: An adult mobile lounge driver or operator over the age of 18, that [...] lenses. Do not wear perfume, make-up, nail jamaican, or lotions on the day of your [...] need to make any changes, please call [phone]. Notify your surgeon if you develop any illness such as a cold, cough, fever, sore throat or vomiting between now and your surgery. Thank you for entrusting us with your care. [facility] Surgical Services Team Normal [facility] Orders Onlyon 01-12-2023 Orders Only [id number] Vishal Duke 1960 M Date Provider Department Center 01/12/2023 AMY BRODY [facility] Family History Problem Relation Age of Onset Alzheimer's disease Mother Coronary artery disease Father Family Status - Relation Status Age at Mother Father Normal [facility] APTTon 01-06-2023 ACTIVATED PARTIAL THROMBOPLASTIN TIME IN PPP BY COAGULATION ASSAY 27.0 Seconds Normal 25.0-35.0 [facility] Comment on above: Result Comment: Clin ical significance of the APTT is questionable in the presence of heparin. Performed By: #### L [id number] #### [facility] (BEAKER) [address] [place] [address] CBC WITH AUTO DIFFERENTIALon 01-06-2023 Basophils (Bld) [#/Vol] 0.07 10*3/uL Normal 0.00-0.20 [facility] Comment on above: Performed By: #### L [id number] ####[facility] (BEAKER)[address] [place] [address] Basophils/100 WBC (Bld) 1.0 % Normal 0.0-1.0 [facility] Comment on above: Performed By: #### L [id number] ####[facility] (BEAKER)[address] [place] [address] Eosinophils (Bld) [#/Vol] 0.12 10*3/uL Normal 0.00-0.50 [facility] Comment on above: Performed By: #### L [id number] ####[facility] (BEAKER)[address] [place] [address] Eosinophils/100 WBC (Bld) 1.8 % Normal 0.0-6.0 [facility] Comment on above: Performed By: #### L [id number] ####[facility] (BEAKER)[address] [place] [address] Erythrocyte distribution width (RBC) [Ratio] 14.5 % Normal 11.5-15.0 [facility] Comment on above: Performed By: #### L [id number] ####[facility] (BEAKER)[address] [place] [address] ERYTHROCYTE MEAN CORPUSCULAR HEMOGLOBIN CONCENTRATION (G/DL) BY AUTOMATED 32.3 g/dL Normal 32.0-35.0 [facility] Comment on above: Performed By: #### L [id number] ####[facility] (BEAKER)[address] [place] [address] Hematocrit (Bld) [Volume fraction] 50.8 % Normal 39.0-55.0 [facility] Comment on above: Performed By: #### L [id number] ####[facility] (BEAKER)[address] [place] [address] Hemoglobin (Bld) [Mass/Vol] 16.4 g/dL Normal 13.0-17.0 [facility] Comment on above: Performed By: #### L [id number] ####[facility] (BEAKER)[address] [place] [address] Immature granulocytes (Bld) [#/Vol] 0.03 10*3/uL Normal 0.00-0.20 [facility] Comment on above: Performed By: #### L [id number] ####[facility] (BEAKER)[address] [place] [address] Immature granulocytes/100 WBC (Bld) 0.4 % Normal 0.0-1.0 [facility] Comment on above: Performed By: #### L [id number] ####[facility] (BEAKER)[address] [place] [address] Lymphocytes (Bld) [#/Vol] 1.05 10*3/uL Low 1.20-4.00 [facility] Comment on above: Performed By: #### L [id number] ####[facility] (BEAKER)[address] [place] [address] Lymphocytes/100 WBC (Bld) 15.5 % Low 20.0-45.0 [facility] Comment on above: Performed By: #### L [id number] ####[facility] (BEAKER)[address] [place] [address] MCH (RBC) [Entitic mass] 29.4 pg Normal 27.0-33.0 [facility] Comment on above: Performed By: #### L [id number] ####[facility] (BEAKER)[address] [place] [address] MCV (RBC) [Entitic vol] 91.2 fL Normal 82.0-98.0 [facility] Comment on above: Performed By: #### L [id number] ####[facility] (BEAKER)[address] [place] [address] Monocytes (Bld) [#/Vol] 0.73 10*3/uL Normal 0.10-1.00 [facility] Comment on above: Performed By: #### L [id number] ####[facility] ([facility])[address] [place] [address] Monocytes/100 WBC (Bld) 10.8 % Normal 5.0-12.0 [facility] Comment on above: Performed By: #### L [id number] ####[facility] ([facility])[address] [place] [address] Neutrophils (Bld) [#/Vol] 4.76 10*3/uL Normal 1.60-7.60 [facility] Comment on above: Performed By: #### L [id number] ####[facility] ([facility])[address] [place] [address] Neutrophils/100 WBC (Bld) 70.5 % Normal 40.0-72.0 [facility] Comment on above: Performed By: #### L [id number] ####[facility] ([facility])[address] [place] [address] NRBC (PER 100 WBCS) BY AUTOMATED COUNT 0.0 % Normal 0 [facility] Comment on above: Performed By: #### L [id number] ####[facility] ([facility])[address] [place] [address] PLATELETS (10*3/UL) IN BLOOD AUTOMATED COUNT 230 10*3/uL Normal 150-400 [facility] Comment on above: Performed By: #### L [id number] ####[facility] ([facility])[address] [place] [address] RBC (Bld) [#/Vol] 5.57 10*6/uL Normal 4.20-5.70 [facility] Comment on above: Performed By: #### L [id number] ####[facility] ([facility])[address] [place] [address] WBC (Bld) [#/Vol] 6.76 10*3/uL Normal 4.00-10.60 [facility] Comment on above: Performed By: #### L [id number] ####[facility] (BEAKER)[address] [place] [address] COMPREHENSIVE METABOLIC PANE Nitin 01-06-2023 Albumin [Mass/Vol] 4.7 g/dL Normal 3.5-5.7 [facility] Comment on above: Performed By: #### L [id number] ####[facility] (BEAKER)[address] [place] [address] ALP [Catalytic activity/Vol] 82 U/L Normal 34-104 [facility] Comment on above: Performed By: #### L [id number] ####[facility] ([facility] [place] [address] ALT [Catalytic activity/Vol] 22 U/L Normal 7-52 [facility] Comment on above: Performed By: #### L [id number] ####[facility] (BEAKER)[address] [place] [address] Anion gap [Moles/Vol] 10 mmol/L Normal 7-20 [facility] Comment on above: Performed By: #### L [id number] ####[facility] (BEAKER)[address] [place] [address] AST [Catalytic activity/Vol] 18 U/L Normal 13-39 [facility] Comment on above: Performed By: #### L [id number] ####[facility] [place] [address] Bilirubin [Mass/Vol] 0.9 mg/dL Normal 0.3-1.0 [facility] Comment on above: Performed By: #### L [id number] ####[facility] (BEAKER)[address] [place] [address] Calcium [Mass/Vol] 9.6 mg/dL Normal 8.6-10.3 [facility] Comment on above: Performed By: #### L [id number] ####[facility] (BEAKER)[address] [place] [address] Chloride [Moles/Vol] 105 mmol/L Normal 98-107 [facility] Comment on above: Performed By: #### L [id number] ####[facility] (BEAKER)[address] [place] [address] CO2 [Moles/Vol] 28 mmol/L Normal 21-31 [facility] Comment on above: Performed By: #### L [id number] ####[facility] (BEAKER)[address] [place] [address] Creatinine [Mass/Vol] 1.27 mg/dL Normal 0.70-1.30 [facility] Comment on above: Performed By: #### L [id number] ####[facility] ([facility] [place] [address] GLOMERULAR FILTRATION RATE ML/MIN/1.73 SQ M.PREDICTED 63.9 mL/min/1.73m*2 Normal >60.0 [facility] Comment on above: Result Comment: [facility]???s estimated glomerular filtration rate (eGFR) will [...] of individuals. Performed By: #### L [id number] ####[facility] (BEAKER)[address] [place] [address] Glucose [Mass/Vol] 117 mg/dL High 70-100 [facility] Comment on above: Performed By: #### L [id number] ####[facility] (BEAKER)[address] [place] [address] Potassium [Moles/Vol] 4.4 mmol/L Normal 3.5-5.1 [facility] Comment on above: Performed By: #### L [id number] ####[facility] (BEAKER)[address] [place] [address] Protein [Mass/Vol] 6.8 g/dL Normal 6.0-8.3 [facility] Comment on above: Performed By: #### L [id number] ####[facility] (BEAKER)[address] [place] [address] Sodium [Moles/Vol] 139 mmol/L Normal 136-145 [facility] Comment on above: Performed By: #### L [id number] ####[facility] (BEAKER)[address] [place] [address] Urea nitrogen [Mass/Vol] 20 mg/dL Normal 7-25 [facility] Comment on above: Performed By: #### L [id number] ####[facility] [place] [address] UREA NITROGEN/CREATININE (MASS RATIO) IN SER/PLAS 15.7 Normal [facility] Comment on above: Performed By: #### L [id number] ####[facility] (BENAYA)[address] [place] [address] CT [facility] ABDOMEN PELVIS WO IV CONTRAST [...] appear stable. The adrenal glands appear stable. [place] kidneys are diffusely replaced by cystic change. [...] reasonably achievable. Electronically signed: Dona Escobar. Normal [facility] Labon 01-06-2023 Lab [id number] Vishal Duke 1960 Date Provider Department [place] 01/06/2023 6513-[facility] OPD LAB RESOURCE [facility]PD [facility] Family History Problem Relation Age of Onset Alzheimer's disease Mother Coronary artery disease Father Family Status - Relation Status Age at Mother Father Normal [facility] PROTIME-INRon 01-06-2023 INR IN PPP BY COAGULATION ASSAY 1.07 Normal 0.90-1.10 [facility] Comment on above: Result Comment: ACCC [...] CHEST 1995;[id number]. Performed By: #### L [id number] ####[facility] [employer])[address] [place] [address] PROTHROMBIN TIME (PT) IN PPP BY COAGULATION ASSAY 13.9 Seconds Normal 12.3-14.8 [facility] Comment on above: Performed By: #### L [id number] ####[facility] (BEAKER)[place] [address] TYPE AND SCREENon 01-06-2023 AB SCREEN Negative Normal [facility] Comment on above: Performed By: #### L [id number] #### [facility] ([facility]) [place] [address] ABO group Nom (Bld) A Normal [facility] Comment on above: Performed By: #### L [id number] #### [facility] ([facility]) [place] [address] RH TYPE IN BLOOD Positive Normal [facility] Comment on above: Performed By: #### L [id number] #### [facility] ([facility]) [place] [address] BILIRUBIN, DIRECTon 12-23-19 Magnesium [Mass/Vol] 0.2 mg/dL Normal 0-0.2 [facility] Comment on above: Performed By: #### L [id number] #### [facility] ([facility]) [address] [place] [address] CBC WITH AUTO DIFFERENTIALon 12-22-2022 Basophils (Bld) [#/Vol] 0.04 10*3/uL Normal 0.00-0.20 [facility] Comment on above: Performed By: #### L [id number] #### [facility] ([facility]) [address] [place] [address] Basophils/100 WBC (Bld) 0.5 % Normal 0.0-1.0 [facility] Comment on above: Performed By: #### L [id number] #### [facility] ([facility]) [address] [place] [address] Eosinophils (Bld) [#/Vol] 0.12 10*3/uL Normal 0.00-0.50 [facility] Comment on above: Performed By: #### L [id number] #### [facility] [address] [place] [address] Eosinophils/100 WBC (Bld) 1.6 % Normal 0.0-6.0 [facility] Comment on above: Performed By: #### L [id number] #### [facility] ([facility]) [address] [place] [address] Erythrocyte distribution width (RBC) [Ratio] 14.6 % Normal 11.5-15.0 [facility] Comment on above: Performed By: #### L [id number] #### [facility] ([facility]) [address] [place] [address] ERYTHROCYTE MEAN CORPUSCULAR HEMOGLOBIN CONCENTRATION (G/DL) BY AUTOMATED 32.5 g/dL Normal 32.0-35.0 [facility] Comment on above: Performed By: #### L [id number] #### [facility] ([facility]) [address] [place] [address] Hematocrit (Bld) [Volume fraction] 50.1 % Normal 39.0-55.0 [facility] Comment on above: Performed By: #### L [id number] #### [facility] ([facility]) [address] [place] [address] Hemoglobin (Bld) [Mass/Vol] 16.3 g/dL Normal 13.0-17.0 [facility] Comment on above: Performed By: #### L [id number] #### [facility] ([facility]) [address] [place] [address] Immature granulocytes (Bld) [#/Vol] 0.05 10*3/uL Normal 0.00-0.20 [facility] Comment on above: Performed By: #### L [id number] #### [facility] ([facility]) [address] [place] [address] Immature granulocytes/100 WBC (Bld) 0.7 % Normal 0.0-1.0 [facility] Comment on above: Performed By: #### L [id number] #### [facility] ([facility]) [address] [place] [address] Lymphocytes (Bld) [#/Vol] 1.03 10*3/uL Low 1.20-4.00 [facility] Comment on above: Performed By: #### L [id number] #### [facility] (BEAKER) [address] [place] [address] Lymphocytes/100 WBC (Bld) 13.4 % Low 20.0-45.0 [facility] Comment on above: Performed By: #### L [id number] #### [facility] (BEAKER) [address] [place] [address] MCH (RBC) [Entitic mass] 29.9 pg Normal 27.0-33.0 [facility] Comment on above: Performed By: #### L [id number] #### [facility] (BEAKER) [address] [place] [address] MCV (RBC) [Entitic vol] 91.8 fL Normal 82.0-98.0 [facility] Comment on above: Performed By: #### L [id number] #### [facility] (BEAKER) [address] [place] [address] Monocytes (Bld) [#/Vol] 0.73 10*3/uL Normal 0.10-1.00 [facility] Comment on above: Performed By: #### L [id number] #### [facility] (BEAKER) [address] [place] [address] Monocytes/100 WBC (Bld) 9.5 % Normal 5.0-12.0 [facility] Comment on above: Performed By: #### L [id number] #### [facility] (BEAKER) [address] [place] [address] Neutrophils (Bld) [#/Vol] 5.69 10*3/uL Normal 1.60-7.60 [facility] Comment on above: Performed By: #### L [id number] #### [facility] (BEAKER) [address] [place] [address] Neutrophils/100 WBC (Bld) 74.3 % High 40.0-72.0 [facility] Comment on above: Performed By: #### L [id number] #### [facility] (BEAKER) [address] [place] [address] NRBC (PER 100 WBCS) BY AUTOMATED COUNT 0.0 % Normal 0 [facility] Comment on above: Performed By: #### L [id number] #### [facility] ([facility]) [address] [place] [address] PLATELETS (10*3/UL) IN BLOOD AUTOMATED COUNT 247 10*3/uL Normal 150-400 [facility] Comment on above: Performed By: #### L [id number] #### [facility] ([facility]) [address] [place] [address] RBC (Bld) [#/Vol] 5.46 10*6/uL Normal 4.20-5.70 [facility] Comment on above: Performed By: #### L [id number] #### [facility] ([facility]) [address] [place] [address] WBC (Bld) [#/Vol] 7.66 10*3/uL Normal 4.00-10.60 [facility] Comment on above: Performed By: #### L [id number] #### [facility] ([facility]) [address] [place] [address] COMPREHENSIVE METABOLIC PANE Nitin 12-22-2022 Albumin [Mass/Vol] 4.6 g/dL Normal 3.5-5.7 [facility] Comment on above: Performed By: #### L [id number] #### [facility] ([facility]) [address] [place] [address] ALP [Catalytic activity/Vol] 88 U/L Normal 34-104 [facility] Comment on above: Performed By: #### L [id number] #### [facility] ([facility]) [address] [place] [address] ALT [Catalytic activity/Vol] 24 U/L Normal 7-52 [facility] Comment on above: Performed By: #### L [id number] #### [facility] ([facility]) [address] [place] [address] Anion gap [Moles/Vol] 12 mmol/L Normal 7-20 [facility] Comment on above: Performed By: #### L [id number] #### [facility] ([facility] [address] [place] [address] AST [Catalytic activity/Vol] 19 U/L Normal 13-39 [facility] Comment on above: Performed By: #### L [id number] #### [facility]) [address] [place] [address] Bilirubin [Mass/Vol] 0.7 mg/dL Normal 0.3-1.0 [facility] Comment on above: Performed By: #### L [id number] #### [facility] ([facility]) [address] [place] [address] Calcium [Mass/Vol] 9.2 mg/dL Normal 8.6-10.3 [facility] Comment on above: Performed By: #### L [id number] #### [facility]) [address] [place] [address] Chloride [Moles/Vol] 105 mmol/L Normal 98-107 [facility] Comment on above: Performed By: #### L [id number] #### [facility]) [address] [place] [address] CO2 [Moles/Vol] 27 mmol/L Normal 21-31 [facility] Comment on above: Performed By: #### L [id number] #### [facility]) [address] [place] [address] Creatinine [Mass/Vol] 1.27 mg/dL Normal 0.70-1.30 [facility] Comment on above: Performed By: #### L [id number] #### [facility] (BEAKER) [address] [place] [address] GLOMERULAR FILTRATION RATE ML/MIN/1.73 SQ M.PREDICTED 64.3 mL/min/1.73m*2 Normal >60.0 [facility] Comment on above: Result Comment: [facility]???s estimated glomerular filtration rate (eGFR) will [...] group of individuals. Performed By: #### L [id number] #### [facility] ([facility]) [address] [place] [address] Glucose [Mass/Vol] 105 mg/dL High 70-100 [facility] Comment on above: Performed By: #### L [id number] #### [facility] ([facility]) [address] [place] [address] Potassium [Moles/Vol] 3.9 mmol/L Normal 3.5-5.1 [facility] Comment on above: Performed By: #### L [id number] #### [facility] ([facility]) [address] [place] [address] Protein [Mass/Vol] 6.7 g/dL Normal 6.0-8.3 [facility] Comment on above: Performed By: #### L [id number] #### [facility] ([facility]) [address] [place] [address] Sodium [Moles/Vol] 140 mmol/L Normal 136-145 [facility] Comment on above: Performed By: #### L [id number] #### [facility] [address] [place] [address] Urea nitrogen [Mass/Vol] 15 mg/dL Normal 7-25 [facility] Comment on above: Performed By: #### L [id number] #### [facility] ([facility]) [address] [place] [address] UREA NITROGEN/CREATININE (MASS RATIO) IN SER/PLAS 11.8 Normal [facility] Comment on above: Performed By: #### L [id number] #### [facility] ([facility]) [address] [place] [address] FERRITINon 12-22-2022 FERRITIN (NG/ML) IN SER/PLAS 32.0 ng/mL Normal 24.0-336.0 [facility] Comment on above: Performed By: #### L [id number] ####[facility] ([facility])[address] [place] [address] Follow-Upon 12-22-2022 Follow-Up [id number] Vishal Duke 1960 M Date Provider Department Center 12/22/2022 263-BOBBY MALDONADO TXP None Family History Problem Relation Age of Onset Alzheimer's disease Mother Coronary artery disease Father Family Status - Relation Status Age at Mother Father Level of Service:90545 [place] OFFICE/OUTPATIENT ESTABLISHED MOD MDM 30-39 MIN Reason for Visit and Comments: Kidney Follow-up [] Normal [facility] LIPID PANELon 12-22-2022 CHOL/HDL 2.9 mg/dL Normal [facility] Comment on above: Performed By: #### L [id number] ####[facility] ([facility])[address] [place] [address] Cholesterol [Mass/Vol] 123 mg/dL Normal 120-200 [facility] Comment on above: Performed By: #### L [id number] ####[facility] ([facility])[address] [place] [address] Magnesium [Mass/Vol] 162 mg/dL High 40-149 [facility] Comment on above: Result Comment: TRIG LYCERIDE REFERENCE RANGE: 20 YEARS AND OLDER CARDIOVASCULAR RISK LESS THAN 150 mg/dL LOW RISK 150 TO 199 mg/dL BORDERLINE RISK 200 mg/dL AND GREATER HIGH RISK Performed By: #### L [id number] ####[facility] [place] [address] Magnesium [Mass/Vol] 48 mg/dL Normal 0-160 [facility] Comment on above: Performed By: #### L [id number] ####[facility] (BEAKER)[address] [place] [address] Magnesium [Mass/Vol] 43 mg/dL Normal 23-92 [facility] Comment on above: Performed By: #### L [id number] ####[facility] ([facility])[address] [place] [address] NON HDL CHOL. (LDL+VLDL) 80 Normal [facility] Comment on above: Performed By: #### L [id number] ####[facility])[address] [facility] [place] [address] TOTAL VLDL-C 32 mg/dL Normal 0-40 [facility] Comment on above: Performed By: #### L [id number] ####[facility] ([facility])[address] [place] [address] Labon 12-22-2022 Lab [id number] Juan Diego Dukeren D 1960 M Date Provider Department Center 12/22/2022 [id number] DRAW STATION KXT Draw [facility] Family History Problem Relation Age of Onset Alzheimer's disease Mother Coronary artery disease Father Family Status - Relation Status Age at Mother Father Normal [facility] MAGNESIUMon 12-22-2022 Magnesium [Mass/Vol] 1.5 mg/dL Low 1.9-2.7 [facility] Comment on above: Performed By: #### L [id number] #### [facility] ([facility]) [address] [place] [address] Orders Onlyon 12-22-2022 Orders Only [id number] Duke,Vishal D 1960 M Date Provider Department Center 12/22/2022 263-LOGAN MALDONADOI TXP None Family History Problem Relation Age of Onset Alzheimer's disease Mother Coronary artery disease Father Family Status - Relation Status Age at Mother Father Normal [facility] Orders Only [id number] Juan Diego Dukeren D 1960 M Date Provider Department Center 12/22/2022 435-XIAO CAMPOST [facility] Second Fl Family History Problem Relation Age of Onset Alzheimer's disease Mother Coronary artery disease Father Family Status - Relation Status Age at Mother Father Normal [facility] PHOSPHORUSon 12-22-2022 Magnesium [Mass/Vol] 3.4 mg/dL Normal 2.5-5.0 [facility] Comment on above: Performed By: #### L [id number] #### [facility] (BEAKER) [address] [place] [address] SINGLE ANTIGEN CLASS Ion AB SCREEN COMMENTS No Class I donor specific antibody identified Normal [facility] Comment on above: Performed By: #### L [id number] ####[facility] TISSUE TYPING (HISTOTRAC)[address] [place], [place] [address] CLASS I TESTED DATE Normal [facility] Comment on above: Performed By: #### L [id number] ####[facility] TISSUE TYPING (HISTOTRAC)[address] SINGLE ANTIGEN CLASS 1 TEST METHOD Class I Single Antigen Normal [facility] Comment on above: Performed By: #### L [id number] ####[facility] TISSUE TYPING (HISTOTRAC)[address] [place], [place] [address] SINGLE ANTIGEN CLASS IIon AB SCREEN COMMENTS No Class II donor specific antibody identified Normal [facility] Comment on above: Performed By: #### L [id number] ####[facility] TISSUE TYPING (HISTOTRAC)[address] [place] [address] [facility] CLASS II TESTED DATE [facility] Comment on above: Performed By: #### L [id number] ####[facility] TISSUE TYPING (HISTOTRAC)[address] [place] [address] [facility] SIGNED BY Signed by James farrell CHT([facility] TITI([facility]), [employer] Transplant Immunology [facility] Comment on above: Performed By: #### L [id number] ####[facility] TISSUE TYPING (HISTOTRAC)[address] Result Comment: Clas s I Antigen Microbeads Performed By: #### L [id number] ####[facility] TISSUE TYPING (HISTOTRAC)[address] SINGLE ANTIGEN CLASS 2 TEST METHOD Class II Single Antigen Normal [facility] Comment on above: Result Comment: Clas s II Antigen Microbeads Performed By: #### L [id number] ####[facility] TISSUE TYPING (HISTOTRAC)[address] [place] [address] [place] TACROLIMUS LEVELon Tacrolimus (Bld) [Mass/Vol] 7.9 ng/mL Normal 5.0-20.0 [facility] Comment on above: Result Comment: The [employer] Tacrolimus assay is a delayed one-step immunoassay for the quantitative determination of tacrolimus in human whole blood using the chemiluminescent microparticle immunoassay (CMIA) technology with flexible assay protocols, referred to as Chemiflex. Performed By: #### L [id number] #### [facility] (BEAKER) [address] [place] [address] URIC ACIDon 12-22-2022 Magnesium [Mass/Vol] 4.9 mg/dL Normal 4.4-7.6 [facility] Comment on above: Performed By: #### L [id number] ####[facility] (BEAKER)[address] [place] [address] Office Visiton 12-05-2022 Follow-up visit [id number] Vishal Duke 1960 M Date Provider Department Center 12/05/2022 FEDERICO MEDRANO MICHELLE [place] Family History Problem Relation Age of Onset Alzheimer's disease Mother Coronary artery disease Father Family Status - Relation Status Age at Mother Father Level of Service:14873 [place] OFFICE/OUTPATIENT ESTABLISHED LOW MDM 20-29 MIN Normal [facility] Orders Onlyon 12-05-2022 Orders Only [id number] Vishal Duke 1960 M Date Provider Department Center 12/05/2022 LASHONDA MCLEOD MICHELLE [place] Family History Problem Relation Age of Onset Alzheimer's disease Mother Coronary artery disease Father Family Status - Relation Status Age at Mother Father Normal [facility] CT CHEST WO IV CONTRASTon CT [...] without contrast. Electronically signed: ONELIA WHITE. Normal [facility] Documentationon 11-01-2022 Documentation [id number] Vishal Duke 1960 M Date Provider Department Center 11/01/2022 [id number] [id number] None Family History Problem Relation Age of Onset Alzheimer's disease Mother Coronary artery disease Father Family Status - Relation Status Age at Mother Father Normal [facility] Office Visiton 10-24-2022 Follow-up visit [id number] Vishal Duke 1960 M Date Provider Department Center 10/24/2022 [id number] BROWN CCC PULM Comprehensiv Family History Problem Relation Age of Onset Alzheimer's disease Mother Coronary artery disease Father Family Status - Relation Status Age at Mother Father Level of Service:46496 [place] OFFICE/OUTPATIENT ESTABLISHED LOW MDM 20-29 MIN (GC) Reason for Visit and Comments: Breathing Problem [17] - More SOB and coughing with weather and air quality changes [facility] Documentationon 10-13-2022 Documentation [id number] Vishal Duke 1960 M Date Provider Department Center 10/13/2022 TIM CORDON None Family History Problem Relation Age of Onset Alzheimer's disease Mother Coronary artery disease Father Family Status - Relation Status Age at Mother Father [facility] Documentationon 10-06-2022 Documentation [id number] Vishal Duke 1960 M Date Provider Department Center 10/06/2022 TIM CORDON None Family History Problem Relation Age of Onset Alzheimer's disease Mother Coronary artery disease Father Family Status - Relation Status Age at Mother Father [facility] 29on 09-27-2022 29 Addended by: DEREK MCCOY on: 09/27/2022 12:23 PM Modules accepted: Orders [facility] Follow-Upon 09-27-2022 Follow-Up [id number] Vishal Duke 1960 M Date Provider Department Center 09/27/2022 [id number] REDDING None Family History Problem Relation Age of Onset Alzheimer's disease Mother Coronary artery disease Father Family Status - Relation Status Age at Mother Father Level of Service:08748 [place] OFFICE/OUTPATIENT ESTABLISHED LOW MDM 20-29 MIN Reason for Visit and Comments: Kidney Follow-up [[id number]] - No major concerns today [facility] Documentationon 09-06-2022 Documentation [id number] Vishal Duke 1960 M Date Provider Department Center 09/06/2022 TIM CORDON None Family History Problem Relation Age of Onset Alzheimer's disease Mother Coronary artery disease Father Family Status - Relation Status Age at Mother Father [facility] FK506 (TACROLIMUS) WHOLE BLO ODon 08-21-2022 Tacrolimus (FK506), Blood 6.0 ng/mL Normal 2.0-20.0 [facility] Comment on above: Result Comment: Trou gh (immediately following transplant) 15.0 . Trough (steady state, 2 weeks or more after transplant): 3.0 - 8.0 . Performed by LC-MS/MS technology. Performed By: #### P HOS, URIC, MG, CMP, DBIL, LIPID #### [facility] [address] [place] [address] Dr. Karla Lagos BK VIRUS PCR QUANTon 023 BKV DNA QUANT PCR PLASMA Negative Normal Negative [facility] Comment on above: Result Comment: No B K DNA detected. . The linear range of the assay is 22 - 100,000,000 IU/mL. Performed By: #### P HOS, URIC, MG, CMP, DBIL, LIPID #### [facility] [address] [place] [address] Dr. Karla Lagos Log10 BKV DNA Plasma Normal [facility] Comment on above: Performed By: #### P HOS, URIC, MG, CMP, DBIL, LIPID #### [facility] [address] [place] [address] Dr. Karla Lagos BILIRUBIN CONJUGATED (DIRECT )on 08-18-2022 BILI, CONJUGATED 0.2 mg/dL Normal 0.0-0.2 [facility] Comment on above: Performed By: #### P HOS, URIC, MG, CMP, DBIL, LIPID #### [facility] [address] [place] [address] Dr. Karla Lagos CBC AUTO DIFFon 08-18-2022 BASO # 0.1 103/ul Normal 0.0-0.1 [facility] Comment on above: Performed By: #### P HOS, URIC, MG, CMP, DBIL, LIPID #### [facility] [address] [place] [address] Dr. Karla Lagos Basophils/100 WBC (Bld) 1.0 % Normal 0.2-2.0 [facility] Comment on above: Performed By: #### P HOS, URIC, MG, CMP, DBIL, LIPID #### [facility] [address] [place] [address] Dr. Karla Lagos EO # 0.1 103/ul Normal 0.0-0.7 [facility] Comment on above: Performed By: #### P HOS, URIC, MG, CMP, DBIL, LIPID #### [facility] [address] [place] [address] Dr. Karla Lagos Eosinophils/100 WBC (Bld) 1.3 % Normal 0.9-7.0 [facility] Comment on above: Performed By: #### P HOS, URIC, MG, CMP, DBIL, LIPID #### [facility] [address] [place] [address] Dr. Karla Lagos Erythrocyte distribution width (RBC) [Ratio] 14.0 % Normal 11.0-15.0 [facility] Comment on above: Performed By: #### P HOS, URIC, MG, CMP, DBIL, LIPID #### [facility] [address] [place] [address] Dr. Karla Lagos Hematocrit (Bld) [Volume fraction] 52.7 % Normal 42.0-54.0 [facility] Comment on above: Performed By: #### P HOS, URIC, MG, CMP, DBIL, LIPID #### [facility] [address] [place] [address] Dr. Karla Lagos Hemoglobin (Bld) [Mass/Vol] 17.0 g/dL Normal 14.0-18.0 [facility] Comment on above: Performed By: #### P HOS, URIC, MG, CMP, DBIL, LIPID #### [facility] [address] [place] [address] Dr. Karla Lagos IG # 0.03 10e3/ul Normal 0.00-0.03 [facility] Comment on above: Performed By: #### P HOS, URIC, MG, CMP, DBIL, LIPID #### [facility] [address] [place] [address] Dr. Karla Lagos IG % 0.4 % Normal 0.0-0.5 [facility] Comment on above: Performed By: #### P HOS, URIC, MG, CMP, DBIL, LIPID #### [facility] [address] [place] [address] Dr. Karla Lagos LYMPH # 1.1 103/ul Critically low 1.2-3.8 [facility] Comment on above: Performed By: #### P HOS, URIC, MG, CMP, DBIL, LIPID #### [facility] [address] [place] [address] Dr. Karla Lagos Lymphocytes/100 WBC (Bld) 16.0 % Critically low 20.5-60.0 [facility] Comment on above: Performed By: #### P HOS, URIC, MG, CMP, DBIL, LIPID #### [facility] [address] [place] [address] Dr. Karla Lagos MANUAL DIFF REQ NO Normal [facility] Comment on above: Performed By: #### P HOS, URIC, MG, CMP, DBIL, LIPID #### [facility] [address] [place] [address] Dr. Karla Lagos MCH (RBC) [Entitic mass] 29.9 pg Normal 25.9-34.0 [facility] Comment on above: Performed By: #### P HOS, URIC, MG, CMP, DBIL, LIPID #### [facility] [address] [place] [address] Dr. aKrla Lagos MCHC (RBC) [Mass/Vol] 32.3 g/dL Normal 29.9-35.2 [facility] Comment on above: Performed By: #### P HOS, URIC, MG, CMP, DBIL, LIPID #### [facility] [address] [place] [address] Dr. Karla Lagos MCV (RBC) [Entitic vol] 92.6 fL Normal 80.0-94.0 [facility] Comment on above: Performed By: #### P HOS, URIC, MG, CMP, DBIL, LIPID #### [facility] [address] [place] [address] Dr. Karla Lagos MONO # 0.7 103/ul Normal 0.3-0.8 [facility] Comment on above: Performed By: #### P HOS, URIC, MG, CMP, DBIL, LIPID #### [facility] [address] [place] [address] Dr. Karla Lagos Monocytes/100 WBC (Bld) 10.6 % Normal 1.7-12.0 [facility] Comment on above: Performed By: #### P HOS, URIC, MG, CMP, DBIL, LIPID #### [facility] [address] [address] [address] Karla Lagos NEUT # 5.0 103/ul Normal 1.4-6.5 [facility] Comment on above: Performed By: #### P HOS, URIC, MG, CMP, DBIL, LIPID #### [facility] [address] [address] [address] Karla Lagos Neutrophils/100 WBC (Bld) 70.7 % Normal 43.0-75.0 [facility] Comment on above: Performed By: #### P HOS, URIC, MG, CMP, DBIL, LIPID #### [facility] [address] [place] [address] Dr. Karla Lagos Platelet mean volume (Bld) [Entitic vol] 10.3 fL Normal 9.5-13.5 [facility] Comment on above: Performed By: #### P HOS, URIC, MG, CMP, DBIL, LIPID #### [facility] [address] [place] [address] Dr. Karla Lagos PLT 263 103/ul Normal 150-450 [facility] Comment on above: Performed By: #### P HOS, URIC, MG, CMP, DBIL, LIPID #### [facility] [address] [place] [address] Dr. Karla Lagos RBC 5.69 106/ul Normal 4.70-6.10 [facility] Comment on above: Performed By: #### P HOS, URIC, MG, CMP, DBIL, LIPID #### [facility] [address] [place] [address] Dr. Karla Lagos WBC 7.0 103/ul Normal 4.0-11.0 [facility] Comment on above: Performed By: #### P HOS, URIC, MG, CMP, DBIL, LIPID #### [facility] [address] [place] [address] Dr. Karla Lagos LIPID PROFILEon 08-18-2022 CHOL-HDL RATIO NORM SEE BELOW Normal [facility] Comment on above: Result Comment: 3.3 - 4.4 LOW RISK 4.4 - 7.1 AVERAGE RISK 7.1 - 11.0 MODERATE RISK >11.0 HIGH RISK Performed By: #### P HOS, URIC, MG, CMP, DBIL, LIPID #### [facility] [address] [address] [address] Karla Lagos Cholesterol [Mass/Vol] 137 mg/dL Normal <=200 [facility] Comment on above: Performed By: #### P HOS, URIC, MG, CMP, DBIL, LIPID #### [facility] [address] [address] [address] Karla Lagos Cholesterol in HDL [Mass/Vol] 45 mg/dL Normal 40-60 [facility] Comment on above: Performed By: #### P HOS, URIC, MG, CMP, DBIL, LIPID #### [facility] [address] [address] [address] Karla Lagos Cholesterol in LDL [Mass/Vol] 59.0 mg/dL Normal [facility] Comment on above: Performed By: #### P HOS, URIC, MG, CMP, DBIL, LIPID #### [facility] [address] [address] [address] Karla Laogs Cholesterol.total/C holesterol in HDL [Mass ratio] 3.0 {ratio} Normal [facility] Comment on above: Performed By: #### P HOS, URIC, MG, CMP, DBIL, LIPID #### [facility] [address] [address] [address] Karla Lagos HDL NORMAL > or = 60 mg/dl - LO W CARDIOVASCULAR RISK <40 mg/dl - HIGH CARDIOVASCULAR RISK Normal [facility] Comment on above: Performed By: #### P HOS, URIC, MG, CMP, DBIL, LIPID #### [facility] [address] [address] [address] Karla Lagos LDL CALC NORMAL SEE BELOW Normal [facility] Comment on above: Result Comment: <100 mg/dl OPTIMAL 100 - 129 mg/dl NEAR OR ABOVE OPTIMAL 130 - 159 mg/dl BORDERLINE HIGH 160 - 189 mg/dl HIGH >190 mg/dl VERY HIGH Performed By: #### P HOS, URIC, MG, CMP, DBIL, LIPID #### [facility] [address] [address] [address] Karla Lagos Triglyceride [Mass/Vol] 165 mg/dL Critically high <=150 [facility] Comment on above: Performed By: #### P HOS, URIC, MG, CMP, DBIL, LIPID #### [facility] [address] [address] [address] Karla Lagos VLDL CALC 33.0 mg/dL Normal [facility] Comment on above: Performed By: #### P HOS, URIC, MG, CMP, DBIL, LIPID #### [facility] [address] [address] [address] Karla Lagos MAGNESIUMon 08-18-2022 Magnesium [Mass/Vol] 1.7 mg/dL Critically low 1.8-2.4 [facility] Comment on above: Performed By: #### P HOS, URIC, MG, CMP, DBIL, LIPID #### [facility] [address] [address] [address] Karla Lagos Orders Onlyon 08-18-2022 Orders Only [id number] Vishal Duke 1960 M Date Provider Department Center 08/18/2022 [id number], OBI [facility] [address]A [address] Family History Problem Relation Age of Onset Alzheimer's disease Mother Coronary artery disease Father Family Status - Relation Status Age at Mother Father Normal [facility] Orders Only [id number] Vishal Duke D 1960 M Date Provider Department Center 08/18/2022 1971-FARRUKH BLANCAS None Family History Problem Relation Age of Onset Alzheimer's disease Mother Coronary artery disease Father Family Status - Relation Status Age at Mother Father Normal [facility] PHOSPHORUSon 08-18-2022 Phosphate [Mass/Vol] 3.6 mg/dL Normal 2.6-4.7 [facility] Comment on above: Performed By: #### P HOS, URIC, MG, CMP, DBIL, LIPID #### [facility] [address] [place] [address] Dr. Karla Lagos PROF 14(COMP METB)on 023 Albumin [Mass/Vol] 4.0 g/dL Normal 3.4-5.0 [facility] Comment on above: Performed By: #### P HOS, URIC, MG, CMP, DBIL, LIPID #### [facility] [address] [place] [address] Dr. Karla Lagos Albumin/Globulin [Mass ratio] 1.1 {ratio} Normal [facility] Comment on above: Performed By: #### P HOS, URIC, MG, CMP, DBIL, LIPID #### [facility] [address] [place] [address] Dr. Karla Lagos ALP [Catalytic activity/Vol] 96 U/L Normal 46-116 [facility] Comment on above: Performed By: #### P HOS, URIC, MG, CMP, DBIL, LIPID #### [facility] [address] [place] [address] Dr. Karla Lagos ALT [Catalytic activity/Vol] 42 U/L Normal 16-63 [facility] Comment on above: Performed By: #### P HOS, URIC, MG, CMP, DBIL, LIPID #### [facility] [address] [place] [address] Dr. Karla Lagos Anion gap [Moles/Vol] 12.9 mmol/L Normal [facility] Comment on above: Performed By: #### P HOS, URIC, MG, CMP, DBIL, LIPID #### [facility] [address] [place] [address] Dr. Karla Lagos AST [Catalytic activity/Vol] 22 U/L Normal 15-37 [facility] Comment on above: Performed By: #### P HOS, URIC, MG, CMP, DBIL, LIPID #### [facility] [address] [place] [address] Dr. Karla Lagos Bilirubin [Mass/Vol] 0.7 mg/dL Normal 0.2-1.0 [facility] Comment on above: Performed By: #### P HOS, URIC, MG, CMP, DBIL, LIPID #### [facility] [address] [address] [address] Karla Lagos Calcium [Mass/Vol] 9.4 mg/dL Normal 8.5-10.1 [facility] Comment on above: Performed By: #### P HOS, URIC, MG, CMP, DBIL, LIPID #### [facility] [address] [address] [address] Karla Lagos Chloride [Moles/Vol] 103 mmol/L Normal 98-107 [facility] Comment on above: Performed By: #### P HOS, URIC, MG, CMP, DBIL, LIPID #### [facility] [address] [place] [address] Dr. Karla Lagos CO2 [Moles/Vol] 27.8 mmol/L Normal 21.0-32.0 [facility] Comment on above: Performed By: #### P HOS, URIC, MG, CMP, DBIL, LIPID #### [facility] [address] [place] [address] Dr. Karla Lagos Creatinine [Mass/Vol] 1.28 mg/dL Normal 0.70-1.30 [facility] Comment on above: Performed By: #### P HOS, URIC, MG, CMP, DBIL, LIPID #### [facility] [address] [place] [address] Dr. Karla Lagos EGFR-AF [place]ER >60 Normal >=60 [facility] Comment on above: Performed By: #### P HOS, URIC, MG, CMP, DBIL, LIPID #### [facility] [address] [place] [address] Dr. Karla Lagos EGFR-NON AF [place] 57 mL/min/1.73m2 Critically low >=60 [facility] Comment on above: Performed By: #### P HOS, URIC, MG, CMP, DBIL, LIPID #### [facility] [address] [place] [address] Dr. Karla Lagos Globulin (S) [Mass/Vol] 3.5 g/dL Normal [facility] Comment on above: Performed By: #### P HOS, URIC, MG, CMP, DBIL, LIPID #### [facility] [address] [address] [address] Karla Lagos Glucose [Mass/Vol] 123 mg/dL Critically high 74-106 [facility] Comment on above: Performed By: #### P HOS, URIC, MG, CMP, DBIL, LIPID #### [facility] [address] [address] [address] Karla Lagos Potassium [Moles/Vol] 4.7 mmol/L Normal 3.5-5.1 [facility] Comment on above: Performed By: #### P HOS, URIC, MG, CMP, DBIL, LIPID #### [facility] [address] [place] [address] Dr. Karla Lagos Protein [Mass/Vol] 7.5 g/dL Normal 6.4-8.2 [facility] Comment on above: Performed By: #### P HOS, URIC, MG, CMP, DBIL, LIPID #### [facility] [address] [place] [address] Dr. Karla Lagos Sodium [Moles/Vol] 139 mmol/L Normal 136-145 [facility] Comment on above: Performed By: #### P HOS, URIC, MG, CMP, DBIL, LIPID #### [facility] [address] [place] [address] Dr. Karla Lagos Urea nitrogen [Mass/Vol] 22.0 mg/dL Critically high 7.0-18.0 [facility] Comment on above: Performed By: #### P HOS, URIC, MG, CMP, DBIL, LIPID #### [facility] [address] [place] [address] Dr. Karla Lagos Urea nitrogen/Creatinine [Mass ratio] 17.2 mg/mg Normal [facility] Comment on above: Performed By: #### P HOS, URIC, MG, CMP, DBIL, LIPID #### [facility] [address] [place] [address] Dr. Karla Lagos URIC ACID SERUMon 08-18-2022 Urate [Mass/Vol] 4.8 mg/dL Normal 3.5-7.2 [facility] Comment on above: Performed By: #### P HOS, URIC, MG, CMP, DBIL, LIPID #### [facility] [address] [place] [address] Dr. Karla Lagos 29on 07-29-2022 29 Addended by: DANIELLAROSA M on: 08/03/2022 02:03 PM Modules accepted: Orders Normal [facility] Office Visiton 07-29-2022 Follow-up visit [id number] ZuleikaVishal Waldemar 1960 M Date Provider Department Center 07/29/2022 [id number], KELVIN CCC PULM Comprehensiv Family History Problem Relation Age of Onset Alzheimer's disease Mother Coronary artery disease Father Family Status - Relation Status Age at Mother Father Level of Service:89316 [place] OFFICE/OUTPATIENT ESTABLISHED MOD MDM 30-39 MIN (GC) Reason for Visit and Comments: Shortness of Breath [[id number]] - Pt reports being SOB and coughing since he had covid two years ago. Normal [facility] BK VIRUS PCR QUANTon 023 BKV DNA QUANT PCR PLASMA Negative Normal Negative [facility] Comment on above: Result Comment: No B K DNA detected. . The linear range of the assay is 22 - 100,000,000 IU/mL. Performed By: #### B KVIRUS #### [facility] [address] [place] [address] Dr. Karla Lagos Log10 BKV DNA Plasma Normal [facility] Comment on above: Performed By: #### B KVIRUS #### [facility] [address] [place] [address] Dr. Karla Lagos FK506 (TACROLIMUS) WHOLE BLO ODon 07-21-2022 Tacrolimus (FK506), Blood 6.1 ng/mL Normal 2.0-20.0 [facility] Comment on above: Result Comment: Trou gh (immediately following transplant) 15.0 . Trough (steady state, 2 weeks or more after transplant): 3.0 - 8.0 . Performed by LC-MS/MS technology. Performed By: #### P HOS, URIC, MG, CMP, DBIL, LIPID #### [facility] [address] [place] [address] Dr. Karla Lagos BILIRUBIN CONJUGATED (DIRECT )on 07-19-2022 BILI, CONJUGATED 0.2 mg/dL Normal 0.0-0.2 [facility] Comment on above: Performed By: #### P HOS, URIC, MG, CMP, DBIL, LIPID #### [facility] [address] [place] [address] Dr. Karla Lagos CBC AUTO DIFFon 07-19-2022 BASO # 0.0 103/ul Normal 0.0-0.1 [facility] Comment on above: Performed By: #### P HOS, URIC, MG, CMP, DBIL, LIPID #### [facility] [address] [place] [address] Dr. Karla Lagos Basophils/100 WBC (Bld) 0.4 % Normal 0.2-2.0 [facility] Comment on above: Performed By: #### P HOS, URIC, MG, CMP, DBIL, LIPID #### [facility] [address] [place] [address] Dr. Karla Lagos EO # 0.1 103/ul Normal 0.0-0.7 [facility] Comment on above: Performed By: #### P HOS, URIC, MG, CMP, DBIL, LIPID #### [facility] [address] [place] [address] Dr. Karla Lagos Eosinophils/100 WBC (Bld) 1.6 % Normal 0.9-7.0 [facility] Comment on above: Performed By: #### P HOS, URIC, MG, CMP, DBIL, LIPID #### [facility] [address] [place] [address] Dr. Karla Lagos Erythrocyte distribution width (RBC) [Ratio] 14.2 % Normal 11.0-15.0 [facility] Comment on above: Performed By: #### P HOS, URIC, MG, CMP, DBIL, LIPID #### [facility] [address] [place] [address] Dr. Karla Lagos Hematocrit (Bld) [Volume fraction] 49.8 % Normal 42.0-54.0 [facility] Comment on above: Performed By: #### P HOS, URIC, MG, CMP, DBIL, LIPID #### [facility] [address] [place] [address] Dr. Karla Lagos Hemoglobin (Bld) [Mass/Vol] 16.6 g/dL Normal 14.0-18.0 [facility] Comment on above: Performed By: #### P HOS, URIC, MG, CMP, DBIL, LIPID #### [facility] [address] [address] [address] Karla Lagos IG # 0.03 10e3/ul Normal 0.00-0.03 [facility] Comment on above: Performed By: #### P HOS, URIC, MG, CMP, DBIL, LIPID #### [facility] [address] [place] [address] Dr. Karla Lagos IG % 0.4 % Normal 0.0-0.5 [facility] Comment on above: Performed By: #### P HOS, URIC, MG, CMP, DBIL, LIPID #### [facility] [address] [place] [address] Dr. Karla Lagos LYMPH # 1.1 103/ul Critically low 1.2-3.8 [facility] Comment on above: Performed By: #### P HOS, URIC, MG, CMP, DBIL, LIPID #### [facility] [address] [place] [address] Dr. Karla Lgaos Lymphocytes/100 WBC (Bld) 14.9 % Critically low 20.5-60.0 [facility] Comment on above: Performed By: #### P HOS, URIC, MG, CMP, DBIL, LIPID #### [facility] [address] [address] [address] Karla Lagos MANUAL DIFF REQ NO Normal [facility] Comment on above: Performed By: #### P HOS, URIC, MG, CMP, DBIL, LIPID #### [facility] [address] [place] [address] Dr. Karla Lagos MCH (RBC) [Entitic mass] 30.4 pg Normal 25.9-34.0 [facility] Comment on above: Performed By: #### P HOS, URIC, MG, CMP, DBIL, LIPID #### [facility] [address] [place] [address] Dr. Karla Lagos MCHC (RBC) [Mass/Vol] 33.3 g/dL Normal 29.9-35.2 [facility] Comment on above: Performed By: #### P HOS, URIC, MG, CMP, DBIL, LIPID #### [facility] [address] [place] [address] Dr. Karla Lagos MCV (RBC) [Entitic vol] 91.2 fL Normal 80.0-94.0 [facility] Comment on above: Performed By: #### P HOS, URIC, MG, CMP, DBIL, LIPID #### [facility] [address] [place] [address] Dr. Karla Lagos MONO # 0.7 103/ul Normal 0.3-0.8 [facility] Comment on above: Performed By: #### P HOS, URIC, MG, CMP, DBIL, LIPID #### [facility] [address] [place] [address] Dr. Karla Lagos Monocytes/100 WBC (Bld) 10.3 % Normal 1.7-12.0 [facility] Comment on above: Performed By: #### P HOS, URIC, MG, CMP, DBIL, LIPID #### [facility] [address] [place] [address] Dr. Karla Lagos NEUT # 5.1 103/ul Normal 1.4-6.5 [facility] Comment on above: Performed By: #### P HOS, URIC, MG, CMP, DBIL, LIPID #### [facility] [address] [place] [address] Dr. Karla Lagos Neutrophils/100 WBC (Bld) 72.4 % Normal 43.0-75.0 [facility] Comment on above: Performed By: #### P HOS, URIC, MG, CMP, DBIL, LIPID #### [facility] [address] [place] [address] Dr. Karla Lagos Platelet mean volume (Bld) [Entitic vol] 10.4 fL Normal 9.5-13.5 [facility] Comment on above: Performed By: #### P HOS, URIC, MG, CMP, DBIL, LIPID #### [facility] [address] [address] [address] Karla Lagos PLT 248 103/ul Normal 150-450 [facility] Comment on above: Performed By: #### P HOS, URIC, MG, CMP, DBIL, LIPID #### [facility] [address] [address] [address] Karla Lagos RBC 5.46 106/ul Normal 4.70-6.10 [facility] Comment on above: Performed By: #### P HOS, URIC, MG, CMP, DBIL, LIPID #### [facility] [address] [address] [address] Karla Lagos WBC 7.1 103/ul Normal 4.0-11.0 [facility] Comment on above: Performed By: #### P HOS, URIC, MG, CMP, DBIL, LIPID #### [facility] [address] [place] [address] Dr. Karla Lagos LIPID PROFILEon 07-19-2022 CHOL-HDL RATIO NORM SEE BELOW Normal [facility] Comment on above: Result Comment: 3.3 - 4.4 LOW RISK 4.4 - 7.1 AVERAGE RISK 7.1 - 11.0 MODERATE RISK >11.0 HIGH RISK Performed By: #### P HOS, URIC, MG, CMP, DBIL, LIPID #### [facility] [address] [place] [address] Dr. Karla Lagos Cholesterol [Mass/Vol] 130 mg/dL Normal <=200 [facility] Comment on above: Performed By: #### P HOS, URIC, MG, CMP, DBIL, LIPID #### [facility] [address] [place] [address] Dr. Karla Lagos Cholesterol in HDL [Mass/Vol] 43 mg/dL Normal 40-60 [facility] Comment on above: Performed By: #### P HOS, URIC, MG, CMP, DBIL, LIPID #### [facility] [address] [address] [address] Karla Lagos Cholesterol in LDL [Mass/Vol] 61.8 mg/dL Normal [facility] Comment on above: Performed By: #### P HOS, URIC, MG, CMP, DBIL, LIPID #### [facility] [address] [address] [address] Karla Lagos Cholesterol.total/C holesterol in HDL [Mass ratio] 3.0 {ratio} Normal [facility] Comment on above: Performed By: #### P HOS, URIC, MG, CMP, DBIL, LIPID #### [facility] [address] [address] [address] Karla Lagos HDL NORMAL > or = 60 mg/dl - LO W CARDIOVASCULAR RISK <40 mg/dl - HIGH CARDIOVASCULAR RISK Normal [facility] Comment on above: Performed By: #### P HOS, URIC, MG, CMP, DBIL, LIPID #### [facility] [address] [address] [address] Karla Lagos LDL CALC NORMAL SEE BELOW Normal [facility] Comment on above: Result Comment: <100 mg/dl OPTIMAL 100 - 129 mg/dl NEAR OR ABOVE OPTIMAL 130 - 159 mg/dl BORDERLINE HIGH 160 - 189 mg/dl HIGH >190 mg/dl VERY HIGH Performed By: #### P HOS, URIC, MG, CMP, DBIL, LIPID #### [facility] [address] [address] [address] Karla Lagos Triglyceride [Mass/Vol] 126 mg/dL Normal <=150 [facility] Comment on above: Performed By: #### P HOS, URIC, MG, CMP, DBIL, LIPID #### [facility] [address] [address] [address] Karla Lagos VLDL CALC 25.2 mg/dL Normal [facility] Comment on above: Performed By: #### P HOS, URIC, MG, CMP, DBIL, LIPID #### [facility] [address] [address] [address] Karla Lagos MAGNESIUMon 07-19-2022 Magnesium [Mass/Vol] 1.7 mg/dL Critically low 1.8-2.4 [facility] Comment on above: Performed By: #### P HOS, URIC, MG, CMP, DBIL, LIPID #### [facility] [address] [place] [address] Dr. Karla Lagos PHOSPHORUSon 07-19-2022 Phosphate [Mass/Vol] 3.1 mg/dL Normal 2.6-4.7 [facility] Comment on above: Performed By: #### P HOS, URIC, MG, CMP, DBIL, LIPID #### [facility] [address] [place] [address] Dr. Karla Lagos PROF 14(COMP METB)on 023 Albumin [Mass/Vol] 4.0 g/dL Normal 3.4-5.0 [facility] Comment on above: Performed By: #### P HOS, URIC, MG, CMP, DBIL, LIPID #### [facility] [address] [place] [address] Dr. Karla Lagos Albumin/Globulin [Mass ratio] 1.3 {ratio} Normal [facility] Comment on above: Performed By: #### P HOS, URIC, MG, CMP, DBIL, LIPID #### [facility] [address] [place] [address] Dr. Karla Lagos ALP [Catalytic activity/Vol] 79 U/L Normal 46-116 [facility] Comment on above: Performed By: #### P HOS, URIC, MG, CMP, DBIL, LIPID #### [facility] [address] [place] [address] Dr. Karla Lagos ALT [Catalytic activity/Vol] 40 U/L Normal 16-63 [facility] Comment on above: Performed By: #### P HOS, URIC, MG, CMP, DBIL, LIPID #### [facility] [address] [place] [address] Dr. Karla Lagos Anion gap [Moles/Vol] 12.8 mmol/L Normal [facility] Comment on above: Performed By: #### P HOS, URIC, MG, CMP, DBIL, LIPID #### [facility] [address] [place] [address] Dr. Karla Lagos AST [Catalytic activity/Vol] 24 U/L Normal 15-37 [facility] Comment on above: Performed By: #### P HOS, URIC, MG, CMP, DBIL, LIPID #### [facility] [address] [place] [address] Dr. Karla Lagos Bilirubin [Mass/Vol] 0.7 mg/dL Normal 0.2-1.0 [facility] Comment on above: Performed By: #### P HOS, URIC, MG, CMP, DBIL, LIPID #### [facility] [address] [place] [address] Dr. Karla Lagos Calcium [Mass/Vol] 9.3 mg/dL Normal 8.5-10.1 [facility] Comment on above: Performed By: #### P HOS, URIC, MG, CMP, DBIL, LIPID #### [facility] [address] [place] [address] Dr. Karla Lagos Chloride [Moles/Vol] 105 mmol/L Normal 98-107 [facility] Comment on above: Performed By: #### P HOS, URIC, MG, CMP, DBIL, LIPID #### [facility] [address] [place] [address] Dr. Karla Lagos CO2 [Moles/Vol] 28.4 mmol/L Normal 21.0-32.0 [facility] Comment on above: Performed By: #### P HOS, URIC, MG, CMP, DBIL, LIPID #### [facility] [address] [place] [address] Dr. Karla Lagos Creatinine [Mass/Vol] 1.23 mg/dL Normal 0.70-1.30 [facility] Comment on above: Performed By: #### P HOS, URIC, MG, CMP, DBIL, LIPID #### [facility] [address] [place] [address] Dr. Karla Lagos EGFR-AF [place]LANDER >60 Normal >=60 [facility] Comment on above: Performed By: #### P HOS, URIC, MG, CMP, DBIL, LIPID #### [facility] [address] [place] [address] Dr. Karla Lagos EGFR-NON AF [place]ER =60 Normal >=60 [facility] Comment on above: Performed By: #### P HOS, URIC, MG, CMP, DBIL, LIPID #### [facility] [address] [place] [address] Dr. Karla Lagos Globulin (S) [Mass/Vol] 3.1 g/dL Normal [facility] Comment on above: Performed By: #### P HOS, URIC, MG, CMP, DBIL, LIPID #### [facility] [address] [place] [address] Dr. Karla Lagos Glucose [Mass/Vol] 114 mg/dL Critically high 74-106 [facility] Comment on above: Performed By: #### P HOS, URIC, MG, CMP, DBIL, LIPID #### [facility] [address] [place] [address] Dr. Karla Lagos Potassium [Moles/Vol] 4.2 mmol/L Normal 3.5-5.1 [facility] Comment on above: Performed By: #### P HOS, URIC, MG, CMP, DBIL, LIPID #### [facility] [address] [place] [address] Dr. Karla Lagos Protein [Mass/Vol] 7.1 g/dL Normal 6.4-8.2 [facility] Comment on above: Performed By: #### P HOS, URIC, MG, CMP, DBIL, LIPID #### [facility] [address] [place] [address] Dr. Karla Lagos Sodium [Moles/Vol] 142 mmol/L Normal 136-145 [facility] Comment on above: Performed By: #### P HOS, URIC, MG, CMP, DBIL, LIPID #### [facility] [address] [place] [address] Dr. Karla Lagos Urea nitrogen [Mass/Vol] 15.0 mg/dL Normal 7.0-18.0 [facility] Comment on above: Performed By: #### P HOS, URIC, MG, CMP, DBIL, LIPID #### [facility] [address] [place] [address] Dr. Karla Lagos Urea nitrogen/Creatinine [Mass ratio] 12.2 mg/mg Normal [facility] Comment on above: Performed By: #### P HOS, URIC, MG, CMP, DBIL, LIPID #### [facility] [address] [address] [address] Karla Lagos URIC ACID SERUMon 07-19-2022 Urate [Mass/Vol] 5.1 mg/dL Normal 3.5-7.2 [facility] Comment on above: Performed By: #### P HOS, URIC, MG, CMP, DBIL, LIPID #### [facility] [address] [address] [address] Karla Lagos BILIRUBIN, DIRECTon 06-17-19 Magnesium [Mass/Vol] 0.2 mg/dL Normal 0-0.2 [facility] Comment on above: Performed By: #### L [id number] #### [facility] ([facility]) [address] [place] [address] BK VIRUS, PLASMA, QUANTITATI VEon 06-16-2022 BK QUANTITATION Not detected Normal [facility] Comment on above: Result Comment: Meth od: BK virus was measured by quantitative polymerase chain reaction using a fluorescent hydrolysis probe targeting the polyomavirus BK PROJECT RESERVOIR ENGINEER-1 gene. The lower limit of quantitation of the assay is 500 copies of BK genome per milliliter of plasma or urine, and any detectable BK DNA below that level is reported as: Detected, <500 copies/ml. Serial BK virus measurement can be used to monitor disease activity. (Reference: Kenneth ronl. J CLIN MICRO 2004; 42:0593-6460). This test was developed and its performance characteristics determined by the [facility]. It has not been approved by the [place] Food and Drug Administration. However, such approval is not required for clinical implementation, and test results have been shown to be clinically useful. This laboratory is CAP accredited and CLIA certified to perform high complexity testing. Performed By: #### L [id number] #### [facility] ([facility]) [address] [place] [address] BK QUANTITATION LOG Not detected Normal [facility] Comment on above: Performed By: #### L [id number] #### [facility] [address] [place] [address] CBC WITH AUTO DIFFERENTIALon 06-16-2022 Basophils (Bld) [#/Vol] 0.07 10*3/uL Normal 0.00-0.20 [facility] Comment on above: Performed By: #### L [id number] #### [facility] ([facility] [address] [place] [address] Basophils/100 WBC (Bld) 1.0 % Normal 0.0-1.0 [facility] Comment on above: Performed By: #### L [id number] #### [facility] ([facility]) [address] [place] [address] Eosinophils (Bld) [#/Vol] 0.13 10*3/uL Normal 0.00-0.50 [facility] Comment on above: Performed By: #### L [id number] #### [facility] ([facility]) [address] [place] [address] Eosinophils/100 WBC (Bld) 1.9 % Normal 0.0-6.0 [facility] Comment on above: Performed By: #### L [id number] #### [facility] ([facility]) [address] [place] [address] Erythrocyte distribution width (RBC) [Ratio] 14.4 % Normal 11.5-15.0 [facility] Comment on above: Performed By: #### L [id number] #### [facility] ([facility]) [address] [place] [address] ERYTHROCYTE MEAN CORPUSCULAR HEMOGLOBIN CONCENTRATION (G/DL) BY AUTOMATED 32.7 g/dL Normal 32.0-35.0 [facility] Comment on above: Performed By: #### L [id number] #### [facility] [address] [place] [address] Hematocrit (Bld) [Volume fraction] 51.3 % Normal 39.0-55.0 [facility] Comment on above: Performed By: #### L [id number] #### [facility] [address] [place] [address] Hemoglobin (Bld) [Mass/Vol] 16.8 g/dL Normal 13.0-17.0 [facility] Comment on above: Performed By: #### L [id number] #### [facility] ([facility]) [address] [place] [address] Immature granulocytes (Bld) [#/Vol] 0.04 10*3/uL Normal 0.00-0.20 [facility] Comment on above: Performed By: #### L [id number] #### [facility] ([facility]) [address] [place] [address] Immature granulocytes/100 WBC (Bld) 0.6 % Normal 0.0-1.0 [facility] Comment on above: Performed By: #### L [id number] #### [facility] ([facility]) [address] [place] [address] Lymphocytes (Bld) [#/Vol] 1.20 10*3/uL Normal 1.20-4.00 [facility] Comment on above: Performed By: #### L [id number] #### [facility] ([facility]) [address] [place] [address] Lymphocytes/100 WBC (Bld) 17.4 % Low 20.0-45.0 [facility] Comment on above: Performed By: #### L [id number] #### [facility] ([facility]) [address] [place] [address] MCH (RBC) [Entitic mass] 30.3 pg Normal 27.0-33.0 [facility] Comment on above: Performed By: #### L [id number] #### [facility] [address] [place] [address] MCV (RBC) [Entitic vol] 92.6 fL Normal 82.0-98.0 [facility] Comment on above: Performed By: #### L [id number] #### [facility] ([facility]) [address] [place] [address] Monocytes (Bld) [#/Vol] 0.71 10*3/uL Normal 0.10-1.00 [facility] Comment on above: Performed By: #### L [id number] #### [facility] ([facility]) [address] [place] [address] Monocytes/100 WBC (Bld) 10.3 % Normal 5.0-12.0 [facility] Comment on above: Performed By: #### L [id number] #### [facility] ([facility]) [address] [place] [address] Neutrophils (Bld) [#/Vol] 4.73 10*3/uL Normal 1.60-7.60 [facility] Comment on above: Performed By: #### L [id number] #### [facility] ([facility]) [address] [place] [address] Neutrophils/100 WBC (Bld) 68.8 % Normal 40.0-72.0 [facility] Comment on above: Performed By: #### L [id number] #### [facility] ([facility]) [address] [place] [address] NRBC (PER 100 WBCS) BY AUTOMATED COUNT 0.0 % Normal 0.0-0.0 [facility] Comment on above: Performed By: #### L [id number] #### [facility] ([facility]) [address] [place] [address] PLATELETS (10*3/UL) IN BLOOD AUTOMATED COUNT 264 10*3/uL Normal 150-400 [facility] Comment on above: Performed By: #### L [id number] #### [facility] ([facility]) [address] [place] [address] RBC (Bld) [#/Vol] 5.54 10*6/uL Normal 4.20-5.70 [facility] Comment on above: Performed By: #### L [id number] #### [facility] [address] [place] [address] WBC (Bld) [#/Vol] 6.88 10*3/uL Normal 4.00-10.60 [facility] Comment on above: Performed By: #### L [id number] #### [facility] ([facility]) [address] [place] [address] COMPREHENSIVE METABOLIC PANE Nitin 06-16-2022 Albumin [Mass/Vol] 4.6 g/dL Normal 3.5-5.7 [facility] Comment on above: Performed By: #### L [id number] #### [facility] ([facility]) [address] [place] [address] ALP [Catalytic activity/Vol] 77 U/L Normal 34-104 [facility] Comment on above: Performed By: #### L [id number] #### [facility] ([facility]) [address] [place] [address] ALT [Catalytic activity/Vol] 32 U/L Normal 7-52 [facility] Comment on above: Performed By: #### L [id number] #### [facility] ([facility]) [address] [place] [address] Anion gap [Moles/Vol] 12 mmol/L Normal 7-20 [facility] Comment on above: Performed By: #### L [id number] #### [facility] ([facility]) [address] [place] [address] AST [Catalytic activity/Vol] 24 U/L Normal 13-39 [facility] Comment on above: Performed By: #### L [id number] #### [facility] ([facility]) [address] [place] [address] Bilirubin [Mass/Vol] 0.9 mg/dL Normal 0.3-1.0 [facility] Comment on above: Performed By: #### L [id number] #### [facility] ([facility]) [address] [place] [address] Calcium [Mass/Vol] 9.7 mg/dL Normal 8.6-10.3 [facility] Comment on above: Performed By: #### L [id number] #### [facility] ([facility]) [address] [place] [address] Chloride [Moles/Vol] 105 mmol/L Normal 98-107 [facility] Comment on above: Performed By: #### L [id number] #### [facility] ([facility]) [address] [place] [address] CO2 [Moles/Vol] 28 mmol/L Normal 21-31 [facility] Comment on above: Performed By: #### L [id number] #### [facility] ([facility]) [address] [place] [address] Creatinine [Mass/Vol] 1.29 mg/dL Normal 0.70-1.30 [facility] Comment on above: Performed By: #### L [id number] #### [facility] ([facility]) [address] [place] [address] GLOMERULAR FILTRATION RATE ML/MIN/1.73 SQ M.PREDICTED 63.1 mL/min/1.73m*2 Normal >60.0 [facility] Comment on above: Result Comment: [facility]???s estimated glomerular filtration rate (eGFR) will [...] individuals. Performed By: #### L [id number] #### [facility] ([facility]) [address] [place] [address] Glucose [Mass/Vol] 105 mg/dL High 70-100 [facility] Comment on above: Performed By: #### L [id number] #### [facility] ([facility]) [address] [place] [address] Potassium [Moles/Vol] 4.7 mmol/L Normal 3.5-5.1 [facility] Comment on above: Performed By: #### L [id number] #### [facility] [address] [place] [address] Protein [Mass/Vol] 6.7 g/dL Normal 6.0-8.3 [facility] Comment on above: Performed By: #### L [id number] #### [facility] ([facility] [address] [place] [place] [address] Sodium [Moles/Vol] 140 mmol/L Normal 136-145 [facility] Comment on above: Performed By: #### L [id number] #### [facility] ([facility] [address] [place] [address] Urea nitrogen [Mass/Vol] 18 mg/dL Normal 7-25 [facility] Comment on above: Performed By: #### L [id number] #### [facility] [address] [place] [address] UREA NITROGEN/CREATININE (MASS RATIO) IN SER/PLAS 14.0 Normal [facility] Comment on above: Performed By: #### L [id number] #### [facility] [address] [place] [address] Follow-Upon 06-16-2022 Follow-Up [id number] Vishal Duke 1960 M Date Provider Department Center 06/16/2022 [id number] MALDONADO TXP None Family History Problem Relation Age of Onset Alzheimer's disease Mother Coronary artery disease Father Family Status - Relation Status Age at Mother Father Level of Service:00912 [place] OFFICE/OUTPT VISIT,PROCEDURE ONLY Reason for Visit and Comments: Kidney Follow-up [[id number]] Normal [facility] LIPID PANELon 06-16-2022 CHOL/HDL 3.2 mg/dL Normal [facility] Comment on above: Performed By: #### L [id number] ####[facility] ([facility])[address] [place] [address] Cholesterol [Mass/Vol] 137 mg/dL Normal 120-200 [facility] Comment on above: Performed By: #### L [id number] ####[facility] ([facility])[address] [place] [address] Magnesium [Mass/Vol] 144 mg/dL Normal 40-149 [facility] Comment on above: Result Comment: TRIG LYCERIDE REFERENCE RANGE: 20 YEARS AND OLDER CARDIOVASCULAR RISK LESS THAN 150 mg/dL LOW RISK 150 TO 199 mg/dL BORDERLINE RISK 200 mg/dL AND GREATER HIGH RISK Performed By: #### L [id number] ####[facility] ([facility])[address] [place] [address] Magnesium [Mass/Vol] 65 mg/dL Normal 0-160 [facility] Comment on above: Performed By: #### L [id number] ####[facility] ([facility])[address] [place] [address] Magnesium [Mass/Vol] 43 mg/dL Normal 23-92 [facility] Comment on above: Performed By: #### L [id number] ####[facility] ([facility])[address] [place] [address] NON HDL CHOL. (LDL+VLDL) 94 Normal [facility] Comment on above: Performed By: #### L [id number] ####[facility] ([facility])[address] [place] [address] TOTAL VLDL-C 29 mg/dL Normal 0-40 [facility] Comment on above: Performed By: #### L [id number] ####[facility] ([facility])[address] [place] [address] Labon 06-16-2022 Lab [id number] Vishal Duke 1960 M Date Provider Department [place] 06/16/2022 [id number] DRAW STATION KXT Draw [facility] Family History Problem Relation Age of Onset Alzheimer's disease Mother Coronary artery disease Father Family Status - Relation Status Age at Mother Father Normal [facility] MAGNESIUMon 06-16-2022 Magnesium [Mass/Vol] 1.8 mg/dL Low 1.9-2.7 [facility] Comment on above: Performed By: #### L [id number] #### [facility] ([facility]) [address] [place] [address] PHOSPHORUSon 06-16-2022 Magnesium [Mass/Vol] 3.4 mg/dL Normal 2.5-5.0 [facility] Comment on above: Performed By: #### L [id number] #### [facility] ([facility]) [address] [place] [address] TACROLIMUS LEVELon Tacrolimus (Bld) [Mass/Vol] 7.4 ng/mL Normal 5.0-20.0 [facility] Comment on above: Result Comment: The [employer] Tacrolimus assay is a delayed one-step immunoassay for the quantitative determination of tacrolimus in human whole blood using the chemiluminescent microparticle immunoassay (CMIA) technology with flexible assay protocols, referred to as Chemiflex. Performed By: #### L [id number] #### [facility] ([facility]) [address] [place] [address] URIC ACIDon 06-16-2022 Magnesium [Mass/Vol] 5.5 mg/dL Normal 4.4-7.6 [facility] Comment on above: Performed By: #### L [id number] #### [facility] ([facility]) [address] [place] [address] FK506 (TACROLIMUS) WHOLE BLO ODon 06-04-2022 Tacrolimus (FK506), Blood 5.1 ng/mL Normal 2.0-20.0 [facility] Comment on above: Result Comment: Trou gh (immediately following transplant) 15.0 . Trough (steady state, 2 weeks or more after transplant): 3.0 - 8.0 . Performed by LC-MS/MS technology. Performed By: #### P HOS, URIC, MG, CMP, DBIL, LIPID #### [facility] [address] [place] [address] Dr. Karla Lagos BK VIRUS PCR QUANTon 023 BKV DNA QUANT PCR PLASMA Negative Normal Negative [facility] Comment on above: Result Comment: No B K DNA detected. . The linear range of the assay is 22 - 100,000,000 IU/mL. Performed By: #### P HOS, URIC, MG, CMP, DBIL, LIPID #### [facility] [address] [place] [address] Dr. Karla Lagos Log10 BKV DNA Plasma Normal [facility] Comment on above: Performed By: #### P HOS, URIC, MG, CMP, DBIL, LIPID #### [facility] [address] [place] [address] Dr. Karla Lagos BILIRUBIN CONJUGATED (DIRECT )on 06-01-2022 BILI, CONJUGATED 0.1 mg/dL Normal 0.0-0.2 [facility] Comment on above: Performed By: #### P HOS, URIC, MG, CMP, DBIL, LIPID #### [facility] [address] [place] [address] Dr. Karla Lagos CBC AUTO DIFFon 06-01-2022 BASO # 0.1 103/ul Normal 0.0-0.1 [facility] Comment on above: Performed By: #### P HOS, URIC, MG, CMP, DBIL, LIPID #### [facility] [address] [place] [address] Dr. Karla Lagos Basophils/100 WBC (Bld) 0.9 % Normal 0.2-2.0 [facility] Comment on above: Performed By: #### P HOS, URIC, MG, CMP, DBIL, LIPID #### [facility] [address] [place] [address] Dr. Karla Lagos EO # 0.1 103/ul Normal 0.0-0.7 [facility] Comment on above: Performed By: #### P HOS, URIC, MG, CMP, DBIL, LIPID #### [facility] [address] [place] [address] Dr. Karla Lagos Eosinophils/100 WBC (Bld) 1.6 % Normal 0.9-7.0 [facility] Comment on above: Performed By: #### P HOS, URIC, MG, CMP, DBIL, LIPID #### [facility] [address] [place] [address] Dr. Karla Lagos Erythrocyte distribution width (RBC) [Ratio] 13.4 % Normal 11.0-15.0 [facility] Comment on above: Performed By: #### P HOS, URIC, MG, CMP, DBIL, LIPID #### [facility] [address] [place] [address] Dr. Karla Lagos Hematocrit (Bld) [Volume fraction] 46.3 % Normal 42.0-54.0 [facility] Comment on above: Performed By: #### P HOS, URIC, MG, CMP, DBIL, LIPID #### [facility] [address] [place] [address] Dr. Karla Lagos Hemoglobin (Bld) [Mass/Vol] 15.4 g/dL Normal 14.0-18.0 [facility] Comment on above: Performed By: #### P HOS, URIC, MG, CMP, DBIL, LIPID #### [facility] [address] [place] [address] Dr. Karla Lagos IG # 0.10 10e3/ul Critically high 0.00-0.03 [facility] Comment on above: Performed By: #### P HOS, URIC, MG, CMP, DBIL, LIPID #### [facility] [address] [place] [address] Dr. Karla Lagos IG % 1.3 % Critically high 0.0-0.5 [facility] Comment on above: Performed By: #### P HOS, URIC, MG, CMP, DBIL, LIPID #### [facility] [address] [place] [address] Dr. Karla Lagos LYMPH # 1.0 103/ul Critically low 1.2-3.8 [facility] Comment on above: Performed By: #### P HOS, URIC, MG, CMP, DBIL, LIPID #### [facility] [address] [place] [address] Dr. Karla aLgos Lymphocytes/100 WBC (Bld) 12.8 % Critically low 20.5-60.0 [facility] Comment on above: Performed By: #### P HOS, URIC, MG, CMP, DBIL, LIPID #### [facility] [address] [place] [address] Dr. Karla Lagos MANUAL DIFF REQ NO Normal [facility] Comment on above: Performed By: #### P HOS, URIC, MG, CMP, DBIL, LIPID #### [facility] [address] [place] [address] Dr. Karla Lagos MCH (RBC) [Entitic mass] 30.4 pg Normal 25.9-34.0 [facility] Comment on above: Performed By: #### P HOS, URIC, MG, CMP, DBIL, LIPID #### [facility] [address] [place] [address] Dr. Karla Lagos MCHC (RBC) [Mass/Vol] 33.3 g/dL Normal 29.9-35.2 [facility] Comment on above: Performed By: #### P HOS, URIC, MG, CMP, DBIL, LIPID #### [facility] [address] [place] [address] Dr. Karla Lagos MCV (RBC) [Entitic vol] 91.3 fL Normal 80.0-94.0 [facility] Comment on above: Performed By: #### P HOS, URIC, MG, CMP, DBIL, LIPID #### [facility] [address] [place] [address] Dr. Karla Lagos MONO # 0.6 103/ul Normal 0.3-0.8 [facility] Comment on above: Performed By: #### P HOS, URIC, MG, CMP, DBIL, LIPID #### [facility] [address] [place] [address] Dr. Karla Lagos Monocytes/100 WBC (Bld) 8.6 % Normal 1.7-12.0 [facility] Comment on above: Performed By: #### P HOS, URIC, MG, CMP, DBIL, LIPID #### [facility] [address] [place] [address] Dr. Karla Lagos NEUT # 5.5 103/ul Normal 1.4-6.5 [facility] Comment on above: Performed By: #### P HOS, URIC, MG, CMP, DBIL, LIPID #### [facility] [address] [place] [address] Dr. Karla Lagos Neutrophils/100 WBC (Bld) 74.8 % Normal 43.0-75.0 [facility] Comment on above: Performed By: #### P HOS, URIC, MG, CMP, DBIL, LIPID #### [facility] [address] [place] [address] Dr. Karla Lagos Platelet mean volume (Bld) [Entitic vol] 9.6 fL Normal 9.5-13.5 [facility] Comment on above: Performed By: #### P HOS, URIC, MG, CMP, DBIL, LIPID #### [facility] [address] [place] [address] Dr. Karla Lagos PLT 312 103/ul Normal 150-450 [facility] Comment on above: Performed By: #### P HOS, URIC, MG, CMP, DBIL, LIPID #### [facility] [address] [place] [address] Dr. Karla Lagos RBC 5.07 106/ul Normal 4.70-6.10 [facility] Comment on above: Performed By: #### P HOS, URIC, MG, CMP, DBIL, LIPID #### [facility] [address] [place] [address] Dr. Karla Lagos WBC 7.4 103/ul Normal 4.0-11.0 [facility] Comment on above: Performed By: #### P HOS, URIC, MG, CMP, DBIL, LIPID #### [facility] [address] [place] [address] Dr. Karla Lagos LIPID PROFILEon 06-01-2022 CHOL-HDL RATIO NORM SEE BELOW Normal [facility] Comment on above: Result Comment: 3.3 - 4.4 LOW RISK 4.4 - 7.1 AVERAGE RISK 7.1 - 11.0 MODERATE RISK >11.0 HIGH RISK Performed By: #### P HOS, URIC, MG, CMP, DBIL, LIPID #### [facility] [address] [place] [address] Dr. Karla Lagos Cholesterol [Mass/Vol] 108 mg/dL Normal <=200 [facility] Comment on above: Performed By: #### P HOS, URIC, MG, CMP, DBIL, LIPID #### [facility] [address] [address] [address] Karla Lagos Cholesterol in HDL [Mass/Vol] 36 mg/dL Critically low 40-60 [facility] Comment on above: Performed By: #### P HOS, URIC, MG, CMP, DBIL, LIPID #### [facility] [address] [address] [address] Karla Lagos Cholesterol in LDL [Mass/Vol] 58.4 mg/dL Normal [facility] Comment on above: Performed By: #### P HOS, URIC, MG, CMP, DBIL, LIPID #### [facility] [address] [place] [address] Dr. Karla Lagos Cholesterol.total/C holesterol in HDL [Mass ratio] 3.0 {ratio} Normal [facility] Comment on above: Performed By: #### P HOS, URIC, MG, CMP, DBIL, LIPID #### [facility] [address] [address] [address] Karla Lagos HDL NORMAL > or = 60 mg/dl - LO W CARDIOVASCULAR RISK <40 mg/dl - HIGH CARDIOVASCULAR RISK Normal [facility] Comment on above: Performed By: #### P HOS, URIC, MG, CMP, DBIL, LIPID #### [facility] [address] [address] [address] Karla Lagos LDL CALC NORMAL SEE BELOW Normal [facility] Comment on above: Result Comment: <100 mg/dl OPTIMAL 100 - 129 mg/dl NEAR OR ABOVE OPTIMAL 130 - 159 mg/dl BORDERLINE HIGH 160 - 189 mg/dl HIGH >190 mg/dl VERY HIGH Performed By: #### P HOS, URIC, MG, CMP, DBIL, LIPID #### [facility] [address] [address] [address] Karla Lagos Triglyceride [Mass/Vol] 68 mg/dL Normal <=150 [facility] Comment on above: Performed By: #### P HOS, URIC, MG, CMP, DBIL, LIPID #### [facility] [address] [address] [address] Karla Lagos VLDL CALC 13.6 mg/dL Normal [facility] Comment on above: Performed By: #### P HOS, URIC, MG, CMP, DBIL, LIPID #### [facility] [address] [address] [address] Karla Lagos MAGNESIUMon 06-01-2022 Magnesium [Mass/Vol] 1.7 mg/dL Critically low 1.8-2.4 [facility] Comment on above: Performed By: #### P HOS, URIC, MG, CMP, DBIL, LIPID #### [facility] [address] [address] [address] Karla Lagos PHOSPHORUSon 06-01-2022 Phosphate [Mass/Vol] 3.7 mg/dL Normal 2.6-4.7 [facility] Comment on above: Performed By: #### P HOS, URIC, MG, CMP, DBIL, LIPID #### [facility] [address] [place] [address] Dr. Karla Lagos PROF 14(COMP METB)on 023 Albumin [Mass/Vol] 3.4 g/dL Normal 3.4-5.0 [facility] Comment on above: Performed By: #### P HOS, URIC, MG, CMP, DBIL, LIPID #### [facility] [address] [place] [address] Dr. Karla Lagos Albumin/Globulin [Mass ratio] 1.0 {ratio} Normal [facility] Comment on above: Performed By: #### P HOS, URIC, MG, CMP, DBIL, LIPID #### [facility] [address] [place] [address] Dr. Karla Lagos ALP [Catalytic activity/Vol] 92 U/L Normal 46-116 [facility] Comment on above: Performed By: #### P HOS, URIC, MG, CMP, DBIL, LIPID #### [facility] [address] [place] [address] Dr. Karla Lagos ALT [Catalytic activity/Vol] 33 U/L Normal 16-63 [facility] Comment on above: Performed By: #### P HOS, URIC, MG, CMP, DBIL, LIPID #### [facility] [address] [address] [address] Karla Lagos Anion gap [Moles/Vol] 12.7 mmol/L Normal [facility] Comment on above: Performed By: #### P HOS, URIC, MG, CMP, DBIL, LIPID #### [facility] [address] [place] [address] Dr. Karla Lagos AST [Catalytic activity/Vol] 21 U/L Normal 15-37 [facility] Comment on above: Performed By: #### P HOS, URIC, MG, CMP, DBIL, LIPID #### [facility] [address] [place] [address] Dr. Karla Lagos Bilirubin [Mass/Vol] 0.4 mg/dL Normal 0.2-1.0 [facility] Comment on above: Performed By: #### P HOS, URIC, MG, CMP, DBIL, LIPID #### [facility] [address] [place] [address] Dr. Karla Lagos Calcium [Mass/Vol] 9.0 mg/dL Normal 8.5-10.1 [facility] Comment on above: Performed By: #### P HOS, URIC, MG, CMP, DBIL, LIPID #### [facility] [address] [place] [address] Dr. Karla Lagos Chloride [Moles/Vol] 104 mmol/L Normal 98-107 [facility] Comment on above: Performed By: #### P HOS, URIC, MG, CMP, DBIL, LIPID #### [facility] [address] [place] [address] Dr. Karla Lagos CO2 [Moles/Vol] 28.7 mmol/L Normal 21.0-32.0 [facility] Comment on above: Performed By: #### P HOS, URIC, MG, CMP, DBIL, LIPID #### [facility] [address] [place] [address] Dr. Karla Lagos Creatinine [Mass/Vol] 1.15 mg/dL Normal 0.70-1.30 [facility] Comment on above: Performed By: #### P HOS, URIC, MG, CMP, DBIL, LIPID #### [facility] [address] [place] [address] Dr. Karla Lagos EGFR-AF [place]ER >60 Normal >=60 [facility] Comment on above: Performed By: #### P HOS, URIC, MG, CMP, DBIL, LIPID #### [facility] [address] [place] [address] Dr. Karla Lagos EGFR-NON AF [place]ER >60 Normal >=60 [facility] Comment on above: Performed By: #### P HOS, URIC, MG, CMP, DBIL, LIPID #### [facility] [address] [place] [address] Dr. Karla Lagos Globulin (S) [Mass/Vol] 3.3 g/dL Normal [facility] Comment on above: Performed By: #### P HOS, URIC, MG, CMP, DBIL, LIPID #### [facility] [address] [place] [address] Dr. Karla Lagos Glucose [Mass/Vol] 112 mg/dL Critically high 74-106 [facility] Comment on above: Performed By: #### P HOS, URIC, MG, CMP, DBIL, LIPID #### [facility] [address] [place] [address] Dr. Karla Lagos Potassium [Moles/Vol] 4.4 mmol/L Normal 3.5-5.1 [facility] Comment on above: Performed By: #### P HOS, URIC, MG, CMP, DBIL, LIPID #### [facility] [address] [place] [address] Dr. Karla Lagos Protein [Mass/Vol] 6.7 g/dL Normal 6.4-8.2 [facility] Comment on above: Performed By: #### P HOS, URIC, MG, CMP, DBIL, LIPID #### [facility] [address] [place] [address] Dr. Karla Lagos Sodium [Moles/Vol] 141 mmol/L Normal 136-145 [facility] Comment on above: Performed By: #### P HOS, URIC, MG, CMP, DBIL, LIPID #### [facility] [address] [address] [address] Karla Lagos Urea nitrogen [Mass/Vol] 17.0 mg/dL Normal 7.0-18.0 [facility] Comment on above: Performed By: #### P HOS, URIC, MG, CMP, DBIL, LIPID #### [facility] [address] [address] [address] Karla Lagos Urea nitrogen/Creatinine [Mass ratio] 14.8 mg/mg Normal [facility] Comment on above: Performed By: #### P HOS, URIC, MG, CMP, DBIL, LIPID #### [facility] [address] [place] [address] Dr. Karla Lagos URIC ACID SERUMon 06-01-2022 Urate [Mass/Vol] 5.3 mg/dL Normal 3.5-7.2 [facility] Comment on above: Performed By: #### P HOS, URIC, MG, CMP, DBIL, LIPID #### [facility] [address] [address] [address] Karla Lagos NM STRESS/REST MULTIon 05-30 NM STRESS/REST MULTI Patient: VISHAL DUKEJessica Exam Date: 05/30/2022 : 1960 Gender:M Ordering : DR FEDERICO CHESTER M.D. Admission #: [id number] Family : Order #: [id number] CLICK HERE TO VIEW EXAM RADIOLOGY REPORT [...] Basal inferoseptal. Basal inferior. Mid-anteroseptal. Mid-inferoseptal. Mid-inferior. [place]. SIZE: Large (5 or more segments). SEVERITY: [...] MD on 06/01/2022 at 06:10 Normal [facility] FK506 (TACROLIMUS) WHOLE BLO ODon 05-06-2022 Tacrolimus (FK506), Blood 5.4 ng/mL Normal 2.0-20.0 [facility] Comment on above: Result Comment: Trou gh (immediately following transplant) 15.0 . Trough (steady state, 2 weeks or more after transplant): 3.0 - 8.0 . Performed by LC-MS/MS technology. Performed By: #### P HOS, URIC, MG, CMP, DBIL, LIPID #### [facility] [address] [place] [address] Dr. Karla Lagos BK VIRUS PCR QUANTon 023 BKV DNA QUANT PCR PLASMA Negative Normal Negative [facility] Comment on above: Result Comment: No B K DNA detected. . The linear range of the assay is 22 - 100,000,000 IU/mL. Performed By: #### P HOS, URIC, MG, CMP, DBIL, LIPID #### [facility] [address] [place] [address] Dr. Karla Lagos Log10 BKV DNA Plasma Normal [facility] Comment on above: Performed By: #### P HOS, URIC, MG, CMP, DBIL, LIPID #### [facility] [address] [address] [address] Karla Lagos BILIRUBIN CONJUGATED (DIRECT )on 05-03-2022 BILI, CONJUGATED 0.2 mg/dL Normal 0.0-0.2 [facility] Comment on above: Performed By: #### P HOS, URIC, MG, CMP, DBIL, LIPID #### [facility] [address] [place] [address] Dr. Karla Lagos CBC AUTO DIFFon 05-03-2022 BASO # 0.1 103/ul Normal 0.0-0.1 [facility] Comment on above: Performed By: #### P HOS, URIC, MG, CMP, DBIL, LIPID #### [facility] [address] [place] [address] Dr. Karla Lagos Basophils/100 WBC (Bld) 0.7 % Normal 0.2-2.0 [facility] Comment on above: Performed By: #### P HOS, URIC, MG, CMP, DBIL, LIPID #### [facility] [address] [place] [address] Dr. Karla Lagos EO # 0.1 103/ul Normal 0.0-0.7 [facility] Comment on above: Performed By: #### P HOS, URIC, MG, CMP, DBIL, LIPID #### [facility] [address] [place] [address] Dr. Karla Lagos Eosinophils/100 WBC (Bld) 1.6 % Normal 0.9-7.0 [facility] Comment on above: Performed By: #### P HOS, URIC, MG, CMP, DBIL, LIPID #### [facility] [address] [place] [address] Dr. Karla Lagos Erythrocyte distribution width (RBC) [Ratio] 13.7 % Normal 11.0-15.0 [facility] Comment on above: Performed By: #### P HOS, URIC, MG, CMP, DBIL, LIPID #### [facility] [address] [place] [address] Dr. Karla Lagos Hematocrit (Bld) [Volume fraction] 49.1 % Normal 42.0-54.0 [facility] Comment on above: Performed By: #### P HOS, URIC, MG, CMP, DBIL, LIPID #### [facility] [address] [place] [address] Dr. Karla Lagos Hemoglobin (Bld) [Mass/Vol] 16.5 g/dL Normal 14.0-18.0 [facility] Comment on above: Performed By: #### P HOS, URIC, MG, CMP, DBIL, LIPID #### [facility] [address] [place] [address] Dr. Karla Lagos IG # 0.05 10e3/ul Critically high 0.00-0.03 [facility] Comment on above: Performed By: #### P HOS, URIC, MG, CMP, DBIL, LIPID #### [facility] [address] [place] [address] Dr. Karla Lagos IG % 0.7 % Critically high 0.0-0.5 [facility] Comment on above: Performed By: #### P HOS, URIC, MG, CMP, DBIL, LIPID #### [facility] [address] [place] [address] Dr. Karla Lagos LYMPH # 1.0 103/ul Critically low 1.2-3.8 [facility] Comment on above: Performed By: #### P HOS, URIC, MG, CMP, DBIL, LIPID #### [facility] [address] [place] [address] Dr. Karla Lagos Lymphocytes/100 WBC (Bld) 13.7 % Critically low 20.5-60.0 [facility] Comment on above: Performed By: #### P HOS, URIC, MG, CMP, DBIL, LIPID #### [facility] [address] [place] [address] Dr. Karla Lagos MANUAL DIFF REQ NO Normal [facility] Comment on above: Performed By: #### P HOS, URIC, MG, CMP, DBIL, LIPID #### [facility] [address] [place] [address] Dr. Karla Lagos MCH (RBC) [Entitic mass] 30.9 pg Normal 25.9-34.0 [facility] Comment on above: Performed By: #### P HOS, URIC, MG, CMP, DBIL, LIPID #### [facility] [address] [place] [address] Dr. Karla Lagos MCHC (RBC) [Mass/Vol] 33.6 g/dL Normal 29.9-35.2 [facility] Comment on above: Performed By: #### P HOS, URIC, MG, CMP, DBIL, LIPID #### [facility] [address] [place] [address] Dr. Karla Lagos MCV (RBC) [Entitic vol] 91.9 fL Normal 80.0-94.0 [facility] Comment on above: Performed By: #### P HOS, URIC, MG, CMP, DBIL, LIPID #### [facility] [address] [place] [address] Dr. Karla Lagos MONO # 0.7 103/ul Normal 0.3-0.8 [facility] Comment on above: Performed By: #### P HOS, URIC, MG, CMP, DBIL, LIPID #### [facility] [address] [place] [address] Dr. Karla Lagos Monocytes/100 WBC (Bld) 9.7 % Normal 1.7-12.0 [facility] Comment on above: Performed By: #### P HOS, URIC, MG, CMP, DBIL, LIPID #### [facility] [address] [place] [address] Dr. Karla Lagos NEUT # 5.2 103/ul Normal 1.4-6.5 [facility] Comment on above: Performed By: #### P HOS, URIC, MG, CMP, DBIL, LIPID #### [facility] [address] [place] [address] Dr. Karla Lagos Neutrophils/100 WBC (Bld) 73.6 % Normal 43.0-75.0 [facility] Comment on above: Performed By: #### P HOS, URIC, MG, CMP, DBIL, LIPID #### [facility] [address] [address] [address] Karla Lagos Platelet mean volume (Bld) [Entitic vol] 10.2 fL Normal 9.5-13.5 [facility] Comment on above: Performed By: #### P HOS, URIC, MG, CMP, DBIL, LIPID #### [facility] [address] [address] [address] Karla Lagos PLT 218 103/ul Normal 150-450 [facility] Comment on above: Performed By: #### P HOS, URIC, MG, CMP, DBIL, LIPID #### [facility] [address] [place] [address] Dr. Karla Lagos RBC 5.34 106/ul Normal 4.70-6.10 [facility] Comment on above: Performed By: #### P HOS, URIC, MG, CMP, DBIL, LIPID #### [facility] [address] [place] [address] Dr. Karla Lagos WBC 7.1 103/ul Normal 4.0-11.0 [facility] Comment on above: Performed By: #### P HOS, URIC, MG, CMP, DBIL, LIPID #### [facility] [address] [place] [address] Dr. Karla Lagos LIPID PROFILEon 05-03-2022 CHOL-HDL RATIO NORM SEE BELOW Normal [facility] Comment on above: Result Comment: 3.3 - 4.4 LOW RISK 4.4 - 7.1 AVERAGE RISK 7.1 - 11.0 MODERATE RISK >11.0 HIGH RISK Performed By: #### M G, CMP, URIC, DBIL, LIPID, PHOS #### [facility] [address] [place] [address] Dr. Karla Laogs Cholesterol [Mass/Vol] 121 mg/dL Normal <=200 [facility] Comment on above: Performed By: #### M G, CMP, URIC, DBIL, LIPID, PHOS #### [facility] [address] [place] [address] Dr. Karla Lagos Cholesterol in HDL [Mass/Vol] 44 mg/dL Normal 40-60 [facility] Comment on above: Performed By: #### M G, CMP, URIC, DBIL, LIPID, PHOS #### [facility] [address] [address] [address] Karla Lagos Cholesterol in LDL [Mass/Vol] 40.0 mg/dL Normal [facility] Comment on above: Performed By: #### M G, CMP, URIC, DBIL, LIPID, PHOS #### [facility] [address] [address] [address] Karla Lagos Cholesterol.total/C holesterol in HDL [Mass ratio] 2.8 {ratio} Normal [facility] Comment on above: Performed By: #### M G, CMP, URIC, DBIL, LIPID, PHOS #### [facility] [address] [address] [address] Karla Lagos HDL NORMAL > or = 60 mg/dl - LO W CARDIOVASCULAR RISK <40 mg/dl - HIGH CARDIOVASCULAR RISK Normal [facility] Comment on above: Performed By: #### M G, CMP, URIC, DBIL, LIPID, PHOS #### [facility] [address] [address] [address] Karla Lagos LDL CALC NORMAL SEE BELOW Normal [facility] Comment on above: Result Comment: <100 mg/dl OPTIMAL 100 - 129 mg/dl NEAR OR ABOVE OPTIMAL 130 - 159 mg/dl BORDERLINE HIGH 160 - 189 mg/dl HIGH >190 mg/dl VERY HIGH Performed By: #### M G, CMP, URIC, DBIL, LIPID, PHOS #### [facility] [address] [address] [address] Karla Lagos Triglyceride [Mass/Vol] 185 mg/dL Critically high <=150 [facility] Comment on above: Performed By: #### M G, CMP, URIC, DBIL, LIPID, PHOS #### [facility] [address] [address] [address] Karla Lagos VLDL CALC 37.0 mg/dL Normal [facility] Comment on above: Performed By: #### M G, CMP, URIC, DBIL, LIPID, PHOS #### [facility] [address] [address] [address] Karla Lagos MAGNESIUMon 05-03-2022 Magnesium [Mass/Vol] 1.6 mg/dL Critically low 1.8-2.4 [facility] Comment on above: Performed By: #### P HOS, URIC, MG, CMP, DBIL, LIPID #### [facility] [address] [address] [address] Karla Lagos PHOSPHORUSon 05-03-2022 Phosphate [Mass/Vol] 3.6 mg/dL Normal 2.6-4.7 [facility] Comment on above: Performed By: #### P HOS, URIC, MG, CMP, DBIL, LIPID #### [facility] [address] [address] [address] Karla Lagos PROF 14(COMP METB)on 023 Albumin [Mass/Vol] 3.9 g/dL Normal 3.4-5.0 [facility] Comment on above: Performed By: #### M G, CMP, URIC, DBIL, LIPID, PHOS #### [facility] [address] [place] [address] Dr. Karla Lagos Albumin/Globulin [Mass ratio] 1.3 {ratio} Normal [facility] Comment on above: Performed By: #### M G, CMP, URIC, DBIL, LIPID, PHOS #### [facility] [address] [place] [address] Dr. Karla Lagos ALP [Catalytic activity/Vol] 80 U/L Normal 46-116 [facility] Comment on above: Performed By: #### M G, CMP, URIC, DBIL, LIPID, PHOS #### [facility] [address] [address] [address] Karla Lagos ALT [Catalytic activity/Vol] 41 U/L Normal 16-63 [facility] Comment on above: Performed By: #### M G, CMP, URIC, DBIL, LIPID, PHOS #### [facility] [address] [address] [address] Karla Lagos Anion gap [Moles/Vol] 11.9 mmol/L Normal [facility] Comment on above: Performed By: #### M G, CMP, URIC, DBIL, LIPID, PHOS #### [facility] [address] [address] [address] Karla Lagos AST [Catalytic activity/Vol] 24 U/L Normal 15-37 [facility] Comment on above: Performed By: #### M G, CMP, URIC, DBIL, LIPID, PHOS #### [facility] [address] [address] [address] Karla Lagos Bilirubin [Mass/Vol] 0.7 mg/dL Normal 0.2-1.0 [facility] Comment on above: Performed By: #### M G, CMP, URIC, DBIL, LIPID, PHOS #### [facility] [address] [place] [address] Dr. Karla Lagos Calcium [Mass/Vol] 9.2 mg/dL Normal 8.5-10.1 [facility] Comment on above: Performed By: #### M G, CMP, URIC, DBIL, LIPID, PHOS #### [facility] [address] [place] [address] Dr. Karla Lagos Chloride [Moles/Vol] 103 mmol/L Normal 98-107 [facility] Comment on above: Performed By: #### M G, CMP, URIC, DBIL, LIPID, PHOS #### [facility] [address] [place] [address] Dr. Karla Lagos CO2 [Moles/Vol] 28.1 mmol/L Normal 21.0-32.0 [facility] Comment on above: Performed By: #### M G, CMP, URIC, DBIL, LIPID, PHOS #### [facility] [address] [place] [address] Dr. Karla Lagos Creatinine [Mass/Vol] 1.19 mg/dL Normal 0.70-1.30 [facility] Comment on above: Performed By: #### M G, CMP, URIC, DBIL, LIPID, PHOS #### [facility] [address] [place] [address] Dr. Karla Lagos EGFR-AF [place]ER >60 Normal >=60 [facility] Comment on above: Performed By: #### M G, CMP, URIC, DBIL, LIPID, PHOS #### [facility] [address] [address] [address] Karla Lagos EGFR-NON AF [place] >60 Normal >=60 [facility] Comment on above: Performed By: #### M G, CMP, URIC, DBIL, LIPID, PHOS #### [facility] [address] [address] [address] Karla Lagos Globulin (S) [Mass/Vol] 2.9 g/dL Normal [facility] Comment on above: Performed By: #### M G, CMP, URIC, DBIL, LIPID, PHOS #### [facility] [address] [place] [address] Dr. Karla Lagos Glucose [Mass/Vol] 119 mg/dL Critically high 74-106 [facility] Comment on above: Performed By: #### M G, CMP, URIC, DBIL, LIPID, PHOS #### [facility] [address] [place] [address] Dr. Karla Lagos Potassium [Moles/Vol] 4.0 mmol/L Normal 3.5-5.1 [facility] Comment on above: Performed By: #### M G, CMP, URIC, DBIL, LIPID, PHOS #### [facility] [address] [place] [address] Dr. Karla Lagos Protein [Mass/Vol] 6.8 g/dL Normal 6.4-8.2 [facility] Comment on above: Performed By: #### M G, CMP, URIC, DBIL, LIPID, PHOS #### [facility] [address] [place] [address] Dr. Karla Lagos Sodium [Moles/Vol] 139 mmol/L Normal 136-145 [facility] Comment on above: Performed By: #### M G, CMP, URIC, DBIL, LIPID, PHOS #### [facility] [address] [place] [address] Dr. Karla Lagos Urea nitrogen [Mass/Vol] 20.0 mg/dL Critically high 7.0-18.0 [facility] Comment on above: Performed By: #### M G, CMP, URIC, DBIL, LIPID, PHOS #### [facility] [address] [place] [address] Dr. Karla Lagos Urea nitrogen/Creatinine [Mass ratio] 16.8 mg/mg Normal [facility] Comment on above: Performed By: #### M G, CMP, URIC, DBIL, LIPID, PHOS #### [facility] [address] [address] [address] Karla Lagos URIC ACID SERUMon 05-03-2022 Urate [Mass/Vol] 5.5 mg/dL Normal 3.5-7.2 [facility] Comment on above: Performed By: #### M G, CMP, URIC, DBIL, LIPID, PHOS #### [facility] [address] [place] [address] Dr. Karla Lagos FK506 (TACROLIMUS) WHOLE BLO ODon 04-17-2022 Tacrolimus (FK506), Blood 6.1 ng/mL Normal 2.0-20.0 [facility] Comment on above: Result Comment: Trou gh (immediately following transplant) 15.0 . Trough (steady state, 2 weeks or more after transplant): 3.0 - 8.0 . Performed by LC-MS/MS technology. Performed By: #### P HOS, URIC, MG, CMP, DBIL, LIPID #### [facility] [address] [place] [address] Dr. Karla Lagos FK506 (TACROLIMUS) WHOLE BLO ODon 03-28-2022 Tacrolimus (FK506), Blood 8.8 ng/mL Normal 2.0-20.0 [facility] Comment on above: Result Comment: Trou gh (immediately following transplant) 15.0 . Trough (steady state, 2 weeks or more after transplant): 3.0 - 8.0 . Performed by LC-MS/MS technology. Performed By: #### P HOS, URIC, MG, CMP, DBIL, LIPID #### [facility] [address] [place] [address] Dr. Karla Lagos BILIRUBIN CONJUGATED (DIRECT )on 03-25-2022 BILI, CONJUGATED 0.2 mg/dL Normal 0.0-0.2 [facility] Comment on above: Performed By: #### P HOS, URIC, MG, CMP, DBIL, LIPID #### [facility] [address] [place] [address] Dr. Karla Lagos CBC AUTO DIFFon 03-25-2022 BASO # 0.1 103/ul Normal 0.0-0.1 [facility] Comment on above: Performed By: #### P HOS, URIC, MG, CMP, DBIL, LIPID #### [facility] [address] [place] [address] Dr. Karla Lagos Basophils/100 WBC (Bld) 0.7 % Normal 0.2-2.0 [facility] Comment on above: Performed By: #### P HOS, URIC, MG, CMP, DBIL, LIPID #### [facility] [address] [place] [address] Dr. Karla Lagos EO # 0.1 103/ul Normal 0.0-0.7 [facility] Comment on above: Performed By: #### P HOS, URIC, MG, CMP, DBIL, LIPID #### [facility] [address] [place] [address] Dr. Karla Lagos Eosinophils/100 WBC (Bld) 1.4 % Normal 0.9-7.0 [facility] Comment on above: Performed By: #### P HOS, URIC, MG, CMP, DBIL, LIPID #### [facility] [address] [place] [address] Dr. Karla Lagos Erythrocyte distribution width (RBC) [Ratio] 13.6 % Normal 11.0-15.0 [facility] Comment on above: Performed By: #### P HOS, URIC, MG, CMP, DBIL, LIPID #### [facility] [address] [place] [address] Dr. Karla Lagos Hematocrit (Bld) [Volume fraction] 51.5 % Normal 42.0-54.0 [facility] Comment on above: Performed By: #### P HOS, URIC, MG, CMP, DBIL, LIPID #### [facility] [address] [place], [place] [id number] Dr. Karla Lagos Hemoglobin (Bld) [Mass/Vol] 16.8 g/dL Normal 14.0-18.0 [facility] Comment on above: Performed By: #### P HOS, URIC, MG, CMP, DBIL, LIPID #### [facility] [address] [place] [address] Dr. Karla Lagos IG # 0.06 10e3/ul Critically high 0.00-0.03 [facility] Comment on above: Performed By: #### P HOS, URIC, MG, CMP, DBIL, LIPID #### [facility] [address] [place] [address] Dr. Karla Lagos IG % 0.8 % Critically high 0.0-0.5 [facility] Comment on above: Performed By: #### P HOS, URIC, MG, CMP, DBIL, LIPID #### [facility] [address] [place] [address] Dr. Karla Lagos LYMPH # 1.1 103/ul Critically low 1.2-3.8 [facility] Comment on above: Performed By: #### P HOS, URIC, MG, CMP, DBIL, LIPID #### [facility] [address] [place] [address] Dr. Karla Lagos Lymphocytes/100 WBC (Bld) 14.8 % Critically low 20.5-60.0 [facility] Comment on above: Performed By: #### P HOS, URIC, MG, CMP, DBIL, LIPID #### [facility] [address] [place] [address] Dr. Karla Lagos MANUAL DIFF REQ NO Normal [facility] Comment on above: Performed By: #### P HOS, URIC, MG, CMP, DBIL, LIPID #### [facility] [address] [place] [address] Dr. Karla Lagos MCH (RBC) [Entitic mass] 30.2 pg Normal 25.9-34.0 [facility] Comment on above: Performed By: #### P HOS, URIC, MG, CMP, DBIL, LIPID #### [facility] [address] [place] [address] Dr. Karla Lagos MCHC (RBC) [Mass/Vol] 32.6 g/dL Normal 29.9-35.2 [facility] Comment on above: Performed By: #### P HOS, URIC, MG, CMP, DBIL, LIPID #### [facility] [address] [place] [address] Dr. Karla Lagos MCV (RBC) [Entitic vol] 92.6 fL Normal 80.0-94.0 [facility] Comment on above: Performed By: #### P HOS, URIC, MG, CMP, DBIL, LIPID #### [facility] [address] [place] [address] Dr. Karla Lagos MONO # 0.7 103/ul Normal 0.3-0.8 [facility] Comment on above: Performed By: #### P HOS, URIC, MG, CMP, DBIL, LIPID #### [facility] [address] [place] [address] Dr. Karla Lagos Monocytes/100 WBC (Bld) 10.0 % Normal 1.7-12.0 [facility] Comment on above: Performed By: #### P HOS, URIC, MG, CMP, DBIL, LIPID #### [facility] [address] [place] [address] Dr. Karla Lagos NEUT # 5.2 103/ul Normal 1.4-6.5 [facility] Comment on above: Performed By: #### P HOS, URIC, MG, CMP, DBIL, LIPID #### [facility] [address] [place] [address] Dr. Karla Lagos Neutrophils/100 WBC (Bld) 72.3 % Normal 43.0-75.0 [facility] Comment on above: Performed By: #### P HOS, URIC, MG, CMP, DBIL, LIPID #### [facility] [address] [place] [address] Dr. Karla Lagos Platelet mean volume (Bld) [Entitic vol] 10.4 fL Normal 9.5-13.5 [facility] Comment on above: Performed By: #### P HOS, URIC, MG, CMP, DBIL, LIPID #### [facility] [address] [place], [place] [address] Dr. Karla Lagos PLT 245 103/ul Normal 150-450 [facility] Comment on above: Performed By: #### P HOS, URIC, MG, CMP, DBIL, LIPID #### [facility] [address] [address] [address] Karla Lagos RBC 5.56 106/ul Normal 4.70-6.10 [facility] Comment on above: Performed By: #### P HOS, URIC, MG, CMP, DBIL, LIPID #### [facility] [address] [address] [address] Karla Lagos WBC 7.2 103/ul Normal 4.0-11.0 [facility] Comment on above: Performed By: #### P HOS, URIC, MG, CMP, DBIL, LIPID #### [facility] [address] [address] [address] Karla Lagos LIPID PROFILEon 03-25-2022 CHOL-HDL RATIO NORM SEE BELOW Normal [facility] Comment on above: Result Comment: 3.3 - 4.4 LOW RISK 4.4 - 7.1 AVERAGE RISK 7.1 - 11.0 MODERATE RISK >11.0 HIGH RISK Performed By: #### P HOS, URIC, MG, CMP, DBIL, LIPID #### [facility] [address] [address] [address] Karla Lagos Cholesterol [Mass/Vol] 124 mg/dL Normal <=200 [facility] Comment on above: Performed By: #### P HOS, URIC, MG, CMP, DBIL, LIPID #### [facility] [address] [address] [address] Karla Lagos Cholesterol in HDL [Mass/Vol] 47 mg/dL Normal 40-60 [facility] Comment on above: Performed By: #### P HOS, URIC, MG, CMP, DBIL, LIPID #### [facility] [address] [address] [address] Karla Lagos Cholesterol in LDL [Mass/Vol] 47.4 mg/dL Normal [facility] Comment on above: Performed By: #### P HOS, URIC, MG, CMP, DBIL, LIPID #### [facility] [address] [address] [address] Karla Lagos Cholesterol.total/C holesterol in HDL [Mass ratio] 2.6 {ratio} Normal [facility] Comment on above: Performed By: #### P HOS, URIC, MG, CMP, DBIL, LIPID #### [facility] [address] [address] [address] Karla Lagos HDL NORMAL > or = 60 mg/dl - LO W CARDIOVASCULAR RISK <40 mg/dl - HIGH CARDIOVASCULAR RISK Normal [facility] Comment on above: Performed By: #### P HOS, URIC, MG, CMP, DBIL, LIPID #### [facility] [address] [place] [address] Dr. Karla Lagos LDL CALC NORMAL SEE BELOW Normal [facility] Comment on above: Result Comment: <100 mg/dl OPTIMAL 100 - 129 mg/dl NEAR OR ABOVE OPTIMAL 130 - 159 mg/dl BORDERLINE HIGH 160 - 189 mg/dl HIGH >190 mg/dl VERY HIGH Performed By: #### P HOS, URIC, MG, CMP, DBIL, LIPID #### [facility] [address] [address] [address] Karla Lagos Triglyceride [Mass/Vol] 148 mg/dL Normal <=150 [facility] Comment on above: Performed By: #### P HOS, URIC, MG, CMP, DBIL, LIPID #### [facility] [address] [address] [address] Karla Lagos VLDL CALC 29.6 mg/dL Normal [facility] Comment on above: Performed By: #### P HOS, URIC, MG, CMP, DBIL, LIPID #### [facility] [address] [address] [address] Karla Lagos MAGNESIUMon 03-25-2022 Magnesium [Mass/Vol] 1.5 mg/dL Critically low 1.8-2.4 [facility] Comment on above: Performed By: #### P HOS, URIC, MG, CMP, DBIL, LIPID #### [facility] [address] [place] [address] Dr. Karla Lagos PHOSPHORUSon 03-25-2022 Phosphate [Mass/Vol] 3.8 mg/dL Normal 2.6-4.7 [facility] Comment on above: Performed By: #### P HOS, URIC, MG, CMP, DBIL, LIPID #### [facility] [address] [place] [address] Dr. Karla Lagos PROF 14(COMP METB)on 022 Albumin [Mass/Vol] 4.1 g/dL Normal 3.4-5.0 [facility] Comment on above: Performed By: #### P HOS, URIC, MG, CMP, DBIL, LIPID #### [facility] [address] [place] [address] Dr. Karla Lagos Albumin/Globulin [Mass ratio] 1.3 {ratio} Normal [facility] Comment on above: Performed By: #### P HOS, URIC, MG, CMP, DBIL, LIPID #### [facility] [address] [place] [address] Dr. Karla Lagos ALP [Catalytic activity/Vol] 76 U/L Normal 46-116 [facility] Comment on above: Performed By: #### P HOS, URIC, MG, CMP, DBIL, LIPID #### [facility] [address] [place] [address] Dr. Karla Lagos ALT [Catalytic activity/Vol] 36 U/L Normal 16-63 [facility] Comment on above: Performed By: #### P HOS, URIC, MG, CMP, DBIL, LIPID #### [facility] [address] [place] [address] Dr. Karla Lagos Anion gap [Moles/Vol] 12.4 mmol/L Normal [facility] Comment on above: Performed By: #### P HOS, URIC, MG, CMP, DBIL, LIPID #### [facility] [address] [place] [address] Dr. Karla Lagos AST [Catalytic activity/Vol] 21 U/L Normal 15-37 [facility] Comment on above: Performed By: #### P HOS, URIC, MG, CMP, DBIL, LIPID #### [facility] [address] [address] [address] Karla Lagos Bilirubin [Mass/Vol] 0.6 mg/dL Normal 0.2-1.0 [facility] Comment on above: Performed By: #### P HOS, URIC, MG, CMP, DBIL, LIPID #### [facility] [address] [address] [address] Karla Lagos Calcium [Mass/Vol] 9.4 mg/dL Normal 8.5-10.1 [facility] Comment on above: Performed By: #### P HOS, URIC, MG, CMP, DBIL, LIPID #### [facility] [address] [place] [address] Dr. Karla Lagos Chloride [Moles/Vol] 103 mmol/L Normal 98-107 [facility] Comment on above: Performed By: #### P HOS, URIC, MG, CMP, DBIL, LIPID #### [facility] [address] [address] [address] Karla Lagos CO2 [Moles/Vol] 30.6 mmol/L Normal 21.0-32.0 [facility] Comment on above: Performed By: #### P HOS, URIC, MG, CMP, DBIL, LIPID #### [facility] [address] [place] [address] Dr. Karla Lagos Creatinine [Mass/Vol] 1.34 mg/dL Critically high 0.70-1.30 [facility] Comment on above: Performed By: #### P HOS, URIC, MG, CMP, DBIL, LIPID #### [facility] [address] [place] [address] Dr. Karla Lagos EGFR-AF [place]ER >60 Normal >=60 [facility] Comment on above: Performed By: #### P HOS, URIC, MG, CMP, DBIL, LIPID #### [facility] [address] [place] [address] Dr. Karla Lagos EGFR-NON AF [place] 54 mL/min/1.73m2 Critically low >=60 [facility] Comment on above: Performed By: #### P HOS, URIC, MG, CMP, DBIL, LIPID #### [facility] [address] [address] [address] Karla Lagos Globulin (S) [Mass/Vol] 3.2 g/dL Normal [facility] Comment on above: Performed By: #### P HOS, URIC, MG, CMP, DBIL, LIPID #### [facility] [address] [address] [address] Karla Lagos Glucose [Mass/Vol] 125 mg/dL Critically high 74-106 [facility] Comment on above: Performed By: #### P HOS, URIC, MG, CMP, DBIL, LIPID #### [facility] [address] [place] [address] Dr. Karla Lagos Potassium [Moles/Vol] 5.0 mmol/L Normal 3.5-5.1 [facility] Comment on above: Performed By: #### P HOS, URIC, MG, CMP, DBIL, LIPID #### [facility] [address] [place] [address] Dr. Karla Lagos Protein [Mass/Vol] 7.3 g/dL Normal 6.4-8.2 [facility] Comment on above: Performed By: #### P HOS, URIC, MG, CMP, DBIL, LIPID #### [facility] [address] [place] [address] Dr. Karla Lagos Sodium [Moles/Vol] 141 mmol/L Normal 136-145 [facility] Comment on above: Performed By: #### P HOS, URIC, MG, CMP, DBIL, LIPID #### [facility] [address] [place] [address] Dr. Karla Lagos Urea nitrogen [Mass/Vol] 24.0 mg/dL Critically high 7.0-18.0 [facility] Comment on above: Performed By: #### P HOS, URIC, MG, CMP, DBIL, LIPID #### [facility] [address] [place] [address] Dr. Karla Lagos Urea nitrogen/Creatinine [Mass ratio] 17.9 mg/mg Normal [facility] Comment on above: Performed By: #### P HOS, URIC, MG, CMP, DBIL, LIPID #### [facility] [address] [address] [address] Karla Lagos URIC ACID SERUMon 03-25-2022 Urate [Mass/Vol] 5.0 mg/dL Normal 3.5-7.2 [facility] Comment on above: Performed By: #### P HOS, URIC, MG, CMP, DBIL, LIPID #### [facility] [address] [address] [address] Karla Lagos FK506 (TACROLIMUS) WHOLE BLO ODon 02-27-2022 Tacrolimus (FK506), Blood 8.0 ng/mL Normal 2.0-20.0 [facility] Comment on above: Result Comment: Trou gh (immediately following transplant) 15.0 . Trough (steady state, 2 weeks or more after transplant): 3.0 - 8.0 . Performed by LC-MS/MS technology. Performed By: #### P HOS, URIC, MG, CMP, DBIL, LIPID #### [facility] [address] [place] [address] Dr. Karla Lagos BK VIRUS PCR QUANTon 022 BKV DNA QUANT PCR PLASMA Negative Normal Negative [facility] Comment on above: Result Comment: No B K DNA detected. . The linear range of the assay is 22 - 100,000,000 IU/mL. Performed By: #### P HOS, URIC, MG, CMP, DBIL, LIPID #### [facility] [address] [place] [address] Dr. Karla Lagos Log10 BKV DNA Plasma Normal [facility] Comment on above: Performed By: #### P HOS, URIC, MG, CMP, DBIL, LIPID #### [facility] [address] [place] [address] Dr. Karla Lagos BILIRUBIN CONJUGATED (DIRECT )on 02-24-2022 BILI, CONJUGATED 0.2 mg/dL Normal 0.0-0.2 [facility] Comment on above: Performed By: #### P HOS, URIC, MG, CMP, DBIL, LIPID #### [facility] [address] [place] [address] Dr. Karla Lagos CBC AUTO DIFFon 02-24-2022 BASO # 0.1 103/ul Normal 0.0-0.1 [facility] Comment on above: Performed By: #### P HOS, URIC, MG, CMP, DBIL, LIPID #### [facility] [address] [place] [address] Dr. Karla Lagos Basophils/100 WBC (Bld) 0.8 % Normal 0.2-2.0 [facility] Comment on above: Performed By: #### P HOS, URIC, MG, CMP, DBIL, LIPID #### [facility] [address] [place] [address] Dr. Karla Lagos EO # 0.1 103/ul Normal 0.0-0.7 [facility] Comment on above: Performed By: #### P HOS, URIC, MG, CMP, DBIL, LIPID #### [facility] [address] [place] [address] Dr. Karla Lagos Eosinophils/100 WBC (Bld) 1.7 % Normal 0.9-7.0 [facility] Comment on above: Performed By: #### P HOS, URIC, MG, CMP, DBIL, LIPID #### [facility] [address] [place] [address] Dr. Karla Lagos Erythrocyte distribution width (RBC) [Ratio] 14.1 % Normal 11.0-15.0 [facility] Comment on above: Performed By: #### P HOS, URIC, MG, CMP, DBIL, LIPID #### [facility] [address] [place] [address] Dr. Karla Lagos Hematocrit (Bld) [Volume fraction] 48.1 % Normal 42.0-54.0 [facility] Comment on above: Performed By: #### P HOS, URIC, MG, CMP, DBIL, LIPID #### [facility] [address] [place] [address] Dr. Karla Lagos Hemoglobin (Bld) [Mass/Vol] 16.0 g/dL Normal 14.0-18.0 [facility] Comment on above: Performed By: #### P HOS, URIC, MG, CMP, DBIL, LIPID #### [facility] [address] [place] [address] Dr. Karla Lagos IG # 0.03 10e3/ul Normal 0.00-0.03 [facility] Comment on above: Performed By: #### P HOS, URIC, MG, CMP, DBIL, LIPID #### [facility] [address] [place] [address] Dr. Karla Lagos IG % 0.5 % Normal 0.0-0.5 [facility] Comment on above: Performed By: #### P HOS, URIC, MG, CMP, DBIL, LIPID #### [facility] [address] [place] [address] Dr. Karla Lagos LYMPH # 1.0 103/ul Critically low 1.2-3.8 [facility] Comment on above: Performed By: #### P HOS, URIC, MG, CMP, DBIL, LIPID #### [facility] [address] [place] [address] Dr. Karla Lagos Lymphocytes/100 WBC (Bld) 16.9 % Critically low 20.5-60.0 [facility] Comment on above: Performed By: #### P HOS, URIC, MG, CMP, DBIL, LIPID #### [facility] [address] [place] [address] Dr. Karla Lagos MANUAL DIFF REQ NO Normal [facility] Comment on above: Performed By: #### P HOS, URIC, MG, CMP, DBIL, LIPID #### [facility] [address] [place] [address] Dr. Karla Lagos MCH (RBC) [Entitic mass] 31.1 pg Normal 25.9-34.0 [facility] Comment on above: Performed By: #### P HOS, URIC, MG, CMP, DBIL, LIPID #### [facility] [address] [place] [address] Dr. Karla Lagos MCHC (RBC) [Mass/Vol] 33.3 g/dL Normal 29.9-35.2 [facility] Comment on above: Performed By: #### P HOS, URIC, MG, CMP, DBIL, LIPID #### [facility] [address] [place] [address] Dr. Karla Lagos MCV (RBC) [Entitic vol] 93.6 fL Normal 80.0-94.0 [facility] Comment on above: Performed By: #### P HOS, URIC, MG, CMP, DBIL, LIPID #### [facility] [address] [place] [address] Dr. Karla Lagos MONO # 0.6 103/ul Normal 0.3-0.8 [facility] Comment on above: Performed By: #### P HOS, URIC, MG, CMP, DBIL, LIPID #### [facility] [address] [place] [address] Dr. Karla Lagos Monocytes/100 WBC (Bld) 10.1 % Normal 1.7-12.0 [facility] Comment on above: Performed By: #### P HOS, URIC, MG, CMP, DBIL, LIPID #### [facility] [address] [place] [address] Dr. Karla Lagos NEUT # 4.2 103/ul Normal 1.4-6.5 [facility] Comment on above: Performed By: #### P HOS, URIC, MG, CMP, DBIL, LIPID #### [facility] [address] [place] [address] Dr. Karla Lagos Neutrophils/100 WBC (Bld) 70.0 % Normal 43.0-75.0 [facility] Comment on above: Performed By: #### P HOS, URIC, MG, CMP, DBIL, LIPID #### [facility] [address] [place] [address] Dr. Karla Lagos Platelet mean volume (Bld) [Entitic vol] 10.2 fL Normal 9.5-13.5 [facility] Comment on above: Performed By: #### P HOS, URIC, MG, CMP, DBIL, LIPID #### [facility] [address] [place] [address] Dr. Karla Lagos PLT 226 103/ul Normal 150-450 [facility] Comment on above: Performed By: #### P HOS, URIC, MG, CMP, DBIL, LIPID #### [facility] [address] [address] [address] Karla Lagos RBC 5.14 106/ul Normal 4.70-6.10 [facility] Comment on above: Performed By: #### P HOS, URIC, MG, CMP, DBIL, LIPID #### [facility] [address] [address] [address] Karla Lagos WBC 6.0 103/ul Normal 4.0-11.0 [facility] Comment on above: Performed By: #### P HOS, URIC, MG, CMP, DBIL, LIPID #### [facility] [address] [address] [address] Karla Lagos LIPID PROFILEon 02-24-2022 CHOL-HDL RATIO NORM SEE BELOW Normal [facility] Comment on above: Result Comment: 3.3 - 4.4 LOW RISK 4.4 - 7.1 AVERAGE RISK 7.1 - 11.0 MODERATE RISK >11.0 HIGH RISK Performed By: #### P HOS, URIC, MG, CMP, DBIL, LIPID #### [facility] [address] [address] [address] Karla Lagos Cholesterol [Mass/Vol] 132 mg/dL Normal <=200 [facility] Comment on above: Performed By: #### P HOS, URIC, MG, CMP, DBIL, LIPID #### [facility] [address] [address] [address] Karla Lagos Cholesterol in HDL [Mass/Vol] 50 mg/dL Normal 40-60 [facility] Comment on above: Performed By: #### P HOS, URIC, MG, CMP, DBIL, LIPID #### [facility] [address] [address] [address] Karla Lagos Cholesterol in LDL [Mass/Vol] 54.6 mg/dL Normal [facility] Comment on above: Performed By: #### P HOS, URIC, MG, CMP, DBIL, LIPID #### [facility] [address] [address] [address] Karla Lagos Cholesterol.total/C holesterol in HDL [Mass ratio] 2.6 {ratio} Normal [facility] Comment on above: Performed By: #### P HOS, URIC, MG, CMP, DBIL, LIPID #### [facility] [address] [address] [address] Karla Lagos HDL NORMAL > or = 60 mg/dl - LO W CARDIOVASCULAR RISK <40 mg/dl - HIGH CARDIOVASCULAR RISK Normal [facility] Comment on above: Performed By: #### P HOS, URIC, MG, CMP, DBIL, LIPID #### [facility] [address] [place] [address] Dr. Karla Lagos LDL CALC NORMAL SEE BELOW Normal [facility] Comment on above: Result Comment: <100 mg/dl OPTIMAL 100 - 129 mg/dl NEAR OR ABOVE OPTIMAL 130 - 159 mg/dl BORDERLINE HIGH 160 - 189 mg/dl HIGH >190 mg/dl VERY HIGH Performed By: #### P HOS, URIC, MG, CMP, DBIL, LIPID #### [facility] [address] [address] [address] Karla Lagos Triglyceride [Mass/Vol] 137 mg/dL Normal <=150 [facility] Comment on above: Performed By: #### P HOS, URIC, MG, CMP, DBIL, LIPID #### [facility] [address] [address] [address] Karla Lagos VLDL CALC 27.4 mg/dL Normal [facility] Comment on above: Performed By: #### P HOS, URIC, MG, CMP, DBIL, LIPID #### [facility] [address] [address] [address] Karla Lagos MAGNESIUMon 02-24-2022 Magnesium [Mass/Vol] 1.5 mg/dL Critically low 1.8-2.4 [facility] Comment on above: Performed By: #### P HOS, URIC, MG, CMP, DBIL, LIPID #### [facility] [address] [place] [address] Dr. Karla Lagos PHOSPHORUSon 02-24-2022 Phosphate [Mass/Vol] 3.2 mg/dL Normal 2.6-4.7 [facility] Comment on above: Performed By: #### P HOS, URIC, MG, CMP, DBIL, LIPID #### [facility] [address] [place] [address] Dr. Karla Lagos PROF 14(COMP METB)on 022 Albumin [Mass/Vol] 4.1 g/dL Normal 3.4-5.0 [facility] Comment on above: Performed By: #### P HOS, URIC, MG, CMP, DBIL, LIPID #### [facility] [address] [address] [address] Karla Lagos Albumin/Globulin [Mass ratio] 1.4 {ratio} Normal [facility] Comment on above: Performed By: #### P HOS, URIC, MG, CMP, DBIL, LIPID #### [facility] [address] [place] [address] Dr. Karla Lagos ALP [Catalytic activity/Vol] 73 U/L Normal 46-116 [facility] Comment on above: Performed By: #### P HOS, URIC, MG, CMP, DBIL, LIPID #### [facility] [address] [place] [address] Dr. Karla Lagos ALT [Catalytic activity/Vol] 27 U/L Normal 16-63 [facility] Comment on above: Performed By: #### P HOS, URIC, MG, CMP, DBIL, LIPID #### [facility] [address] [place] [address] Dr. Karla Lagos Anion gap [Moles/Vol] 11.7 mmol/L Normal [facility] Comment on above: Performed By: #### P HOS, URIC, MG, CMP, DBIL, LIPID #### [facility] [address] [place] [address] Dr. Karla Lagos AST [Catalytic activity/Vol] 16 U/L Normal 15-37 [facility] Comment on above: Performed By: #### P HOS, URIC, MG, CMP, DBIL, LIPID #### [facility] [address] [place] [address] Dr. Karla Lagos Bilirubin [Mass/Vol] 0.8 mg/dL Normal 0.2-1.0 [facility] Comment on above: Performed By: #### P HOS, URIC, MG, CMP, DBIL, LIPID #### [facility] [address] [address] [address] Karla Lagos Calcium [Mass/Vol] 9.1 mg/dL Normal 8.5-10.1 [facility] Comment on above: Performed By: #### P HOS, URIC, MG, CMP, DBIL, LIPID #### [facility] [address] [address] [address] Karla Lagos Chloride [Moles/Vol] 104 mmol/L Normal 98-107 [facility] Comment on above: Performed By: #### P HOS, URIC, MG, CMP, DBIL, LIPID #### [facility] [address] [place] [address] Dr. Karla Lagos CO2 [Moles/Vol] 29.4 mmol/L Normal 21.0-32.0 [facility] Comment on above: Performed By: #### P HOS, URIC, MG, CMP, DBIL, LIPID #### [facility] [address] [place] [address] Dr. Karla Lagos Creatinine [Mass/Vol] 1.27 mg/dL Normal 0.70-1.30 [facility] Comment on above: Performed By: #### P HOS, URIC, MG, CMP, DBIL, LIPID #### [facility] [address] [place] [address] Dr. Karla Lagos EGFR-AF [place]ER >60 Normal >=60 [facility] Comment on above: Performed By: #### P HOS, URIC, MG, CMP, DBIL, LIPID #### [facility] [address] [place] [address] Dr. Karla Lagos EGFR-NON AF [place] 58 mL/min/1.73m2 Critically low >=60 [facility] Comment on above: Performed By: #### P HOS, URIC, MG, CMP, DBIL, LIPID #### [facility] [address] [place] [address] Dr. Karla Lagos Globulin (S) [Mass/Vol] 2.9 g/dL Normal [facility] Comment on above: Performed By: #### P HOS, URIC, MG, CMP, DBIL, LIPID #### [facility] [address] [address] [address] Karla Lagos Glucose [Mass/Vol] 113 mg/dL Critically high 74-106 [facility] Comment on above: Performed By: #### P HOS, URIC, MG, CMP, DBIL, LIPID #### [facility] [address] [address] [address] Karla Lagos Potassium [Moles/Vol] 4.1 mmol/L Normal 3.5-5.1 [facility] Comment on above: Performed By: #### P HOS, URIC, MG, CMP, DBIL, LIPID #### [facility] [address] [place] [address] Dr. Karla Lagos Protein [Mass/Vol] 7.0 g/dL Normal 6.4-8.2 [facility] Comment on above: Performed By: #### P HOS, URIC, MG, CMP, DBIL, LIPID #### [facility] [address] [place] [address] Dr. Karla Lagos Sodium [Moles/Vol] 141 mmol/L Normal 136-145 [facility] Comment on above: Performed By: #### P HOS, URIC, MG, CMP, DBIL, LIPID #### [facility] [address] [place] [address] Dr. Karla Lagos Urea nitrogen [Mass/Vol] 18.0 mg/dL Normal 7.0-18.0 [facility] Comment on above: Performed By: #### P HOS, URIC, MG, CMP, DBIL, LIPID #### [facility] [address] [place] [address] Dr. Karla Lagos Urea nitrogen/Creatinine [Mass ratio] 14.2 mg/mg Normal [facility] Comment on above: Performed By: #### P HOS, URIC, MG, CMP, DBIL, LIPID #### [facility] [address] [place] [address] Dr. Karla Lagos URIC ACID SERUMon 02-24-2022 Urate [Mass/Vol] 6.0 mg/dL Normal 3.5-7.2 [facility] Comment on above: Performed By: #### P HOS, URIC, MG, CMP, DBIL, LIPID #### [facility] [address] [place], [place] [address] Dr. Karla Lagos XR Chest 2 Views*on 01-14-20 22 XR Chest 2 Views* FINDINGS: Comparison made with prior examination of September 24, 2020. Improved aeration with no persistent parenchymal consolidation. No pleural or pericardial effusions. Normal cardiac silhouette size. Sternotomy wires. Left central cardiac pacemaker. IMPRESSION: 1. Minimal residual post-inflammatory sequela. Report reported and signed by Anjum Remy on 01/13/2022 1143 Normal [facility] [employer] ECHOCARDIO M/2D COMPLETEon 0 09-28-2021 ECHOCARDIO M/2D COMPLETE Patient: VISHAL DUKE Exam Date: 09/28/2021 : 1960 Gender:M Ordering : DR FEDERICO CHESTER M.D. Admission #: [id number] Family : DR ROSA M GONZALES M.D. Order #: [id number] CLICK HERE TO VIEW EXAM ECHOCARDIOGRAM REPORT [...] Area(A4C): 20.50 cm2 Left Atrium Systolic Volume(A2C): 92802 mm3 Left Atrium Systolic Volume(A4C): 29321 mm3 Mitral Valve MV E to A [...] M.D. on 09/28/2021 at 19:38 Normal [facility] Bilirubin, Directon 09-28-19 22 DBIL <0.2 Normal [facility] [employer] Comment on above: Result Comment: Refe rence range change 03/03/2017. Prior reference range 0.1-0.3 mg/dL. Performed By: #### C BCAD, MG, URIC, LIPD, PHOS, CMP, DBIL #### [facility] [address] [place], [place] [id number] Complete Blood Count with Au to Diffon 09-27-2021 Basophils (Bld) [#/Vol] 0.06 10*3/uL Normal 0.00-0.20 [facility] Comment on above: Performed By: #### C BCAD, MG, URIC, LIPD, PHOS, CMP, DBIL #### [facility] [address] [place], [place] [id number] Basophils/100 WBC (Bld) 1.0 % Normal [facility] Comment on above: Performed By: #### C BCAD, MG, URIC, LIPD, PHOS, CMP, DBIL #### [facility] [address] [place], [place] [id number] Eosinophils (Bld) [#/Vol] 0.09 10*3/uL Normal 0.02-0.50 [facility] Comment on above: Performed By: #### C BCAD, MG, URIC, LIPD, PHOS, CMP, DBIL #### [facility] [address] [place], [place] [id number] Eosinophils/100 WBC (Bld) 1.5 % Normal [facility] [employer] Comment on above: Performed By: #### C BCAD, MG, URIC, LIPD, PHOS, CMP, DBIL #### [facility] [address] [place], [place] [id number] Erythrocyte distribution width (RBC) [Ratio] 14.1 % Normal 11.0-15.0 [facility] Comment on above: Performed By: #### C BCAD, MG, URIC, LIPD, PHOS, CMP, DBIL #### [facility] [address] [place], [place] [id number] Hematocrit (Bld) [Volume fraction] 51.6 % High 38.5-50.0 [facility] Comment on above: Performed By: #### C BCAD, MG, URIC, LIPD, PHOS, CMP, DBIL #### [facility] [address] [place], [place] [id number] Hemoglobin (Bld) [Mass/Vol] 16.5 g/dL Normal 13.0-17.1 [facility] [employer] Comment on above: Performed By: #### C BCAD, MG, URIC, LIPD, PHOS, CMP, DBIL #### [facility] [address] [place], [place] [id number] Lymphocytes (Bld) [#/Vol] 1.0 10*3/uL Normal 0.9-3.9 [facility] Comment on above: Performed By: #### C BCAD, MG, URIC, LIPD, PHOS, CMP, DBIL #### [facility] [address] [place], [place] [id number] Lymphocytes/100 WBC (Bld) 16.3 % Normal [facility] Comment on above: Performed By: #### C BCAD, MG, URIC, LIPD, PHOS, CMP, DBIL #### [facility] [address] [place], [place] [id number] MCH (RBC) [Entitic mass] 29.9 pg Normal 27.0-33.0 [facility] Comment on above: Performed By: #### C BCAD, MG, URIC, LIPD, PHOS, CMP, DBIL #### [facility] [address] [place], [place] [id number] MCHC (RBC) [Mass/Vol] 32.0 g/dL Normal 32.0-36.0 [facility] Comment on above: Performed By: #### C BCAD, MG, URIC, LIPD, PHOS, CMP, DBIL #### [facility] [address] [place], [place] [id number] MCV (RBC) [Entitic vol] 94 fL Normal 80-100 [facility] Comment on above: Performed By: #### C BCAD, MG, URIC, LIPD, PHOS, CMP, DBIL #### [facility] [address] [place], [place] [id number] Monocytes (Bld) [#/Vol] 0.7 10*3/uL Normal 0.2-0.9 [facility] Comment on above: Performed By: #### C BCAD, MG, URIC, LIPD, PHOS, CMP, DBIL #### [facility] [address] [place], [place] [id number] Monocytes/100 WBC (Bld) 11.1 % Normal [facility] Comment on above: Performed By: #### C BCAD, MG, URIC, LIPD, PHOS, CMP, DBIL #### [facility] [address] [place], [place] [id number] Neutrophils (Bld) [#/Vol] 4.2 10*3/uL Normal 1.5-7.8 [facility] Comment on above: Performed By: #### C BCAD, MG, URIC, LIPD, PHOS, CMP, DBIL #### [facility] [address] [place], [place] [id number] Neutrophils/100 WBC (Bld) 69.8 % Normal [facility] Comment on above: Performed By: #### C BCAD, MG, URIC, LIPD, PHOS, CMP, DBIL #### [facility] [address] [place], [place] [id number] Platelet mean volume (Bld) [Entitic vol] 10.80 fL Normal 7.50-12.50 [facility] Comment on above: Performed By: #### C BCAD, MG, URIC, LIPD, PHOS, CMP, DBIL #### [facility] [address] [place], [place] [id number] Platelets (Bld) [#/Vol] 247 10*3/uL Normal 140-400 [facility] Comment on above: Performed By: #### C BCAD, MG, URIC, LIPD, PHOS, CMP, DBIL #### [facility] [address] [place], [place] [id number] RBC (Bld) [#/Vol] 5.52 10*6/uL Normal 4.20-5.80 [facility] Comment on above: Performed By: #### C BCAD, MG, URIC, LIPD, PHOS, CMP, DBIL #### [facility] [address] [place], [place] [id number] RDW-SD 48.9 fL Normal 37.0-50.0 [place] [facility] Comment on above: Performed By: #### C BCAD, MG, URIC, LIPD, PHOS, CMP, DBIL #### [facility] [address] [place], [place] [id number] WBC (Bld) [#/Vol] 6.0 10*3/uL Normal 3.8-11.0 [facility] [place] [facility] [employer] [facility] Comment on above: Performed By: #### C BCAD, MG, URIC, LIPD, PHOS, CMP, DBIL #### [facility] [address] [place], [place] [id number] Comprehensive Metabolic Pane [facility] 09-27-2021 Albumin [Mass/Vol] 5.0 g/dL Normal 3.6-5.1 [facility] [place] [facility] [employer] [facility] Comment on above: Performed By: #### C BCAD, MG, URIC, LIPD, PHOS, CMP, DBIL #### [facility] [address] [place], [place] [id number] Albumin/Globulin [Mass ratio] 2.8 {ratio} High 1.0-2.5 [facility] [employer] [facility] Comment on above: Performed By: #### C BCAD, MG, URIC, LIPD, PHOS, CMP, DBIL #### [facility] [address] [place], [place] [id number] ALP [Catalytic activity/Vol] 79 U/L Normal 40-129 [facility] Comment on above: Performed By: #### C BCAD, MG, URIC, LIPD, PHOS, CMP, DBIL #### [facility] [address] [place], [place] [id number] ALT [Catalytic activity/Vol] 29 U/L Normal 9-46 [facility] Comment on above: Result Comment: 03/17 Female reference range changed. Performed By: #### C BCAD, MG, URIC, LIPD, PHOS, CMP, DBIL #### [facility] [address] [place], [place] [id number] Anion gap [Moles/Vol] 23 mmol/L High 12-20 [facility] Comment on above: Result Comment: Effe ctive 04/22/2019 reference range changed. Performed By: #### C BCAD, MG, URIC, LIPD, PHOS, CMP, DBIL #### [facility] [address] [place], [place] [id number] AST [Catalytic activity/Vol] 25 U/L Normal 10-40 [facility] Comment on above: Performed By: #### C BCAD, MG, URIC, LIPD, PHOS, CMP, DBIL #### [facility] [address] [place], [place] [id number] Bilirubin [Mass/Vol] 0.66 mg/dL Normal 0.30-1.20 [facility] Comment on above: Performed By: #### C BCAD, MG, URIC, LIPD, PHOS, CMP, DBIL #### [facility] [address] [place], [place] [id number] BUN/CREA 18 Ratio Normal 6-22 [facility] Comment on above: Performed By: #### C BCAD, MG, URIC, LIPD, PHOS, CMP, DBIL #### [facility] [address] [place], [place] [id number] Calcium [Mass/Vol] 10.0 mg/dL Normal 8.6-10.2 [facility] Comment on above: Performed By: #### C BCAD, MG, URIC, LIPD, PHOS, CMP, DBIL #### [facility] [address] [place], [place] [id number] Chloride [Moles/Vol] 105 mmol/L Normal 98-107 [facility] Comment on above: Performed By: #### C BCAD, MG, URIC, LIPD, PHOS, CMP, DBIL #### [facility] [address] [place], [place] [id number] CO2 [Moles/Vol] 20 mmol/L Normal 20-31 [facility] Comment on above: Performed By: #### C BCAD, MG, URIC, LIPD, PHOS, CMP, DBIL #### [facility] [address] [place], [place] [id number] Creatinine [Mass/Vol] 1.2 mg/dL Normal 0.7-1.4 [facility] Comment on above: Performed By: #### C BCAD, MG, URIC, LIPD, PHOS, CMP, DBIL #### [facility] [address] [place], [place] [id number] eGFRAA 72 mL/min/1.73m2 Normal >60 [facility] [employer] Comment on above: Performed By: #### C BCAD, MG, URIC, LIPD, PHOS, CMP, DBIL #### [facility] [address] [place], [place] [id number] eGFRNAA 59 mL/min/1.73m2 Low >60 [facility] [employer] [facility] Comment on above: Performed By: #### C BCAD, MG, URIC, LIPD, PHOS, CMP, DBIL #### [facility] [address] [place], [place] [id number] Globulin (S) [Mass/Vol] 1.8 g/dL Low 1.9-3.7 [facility] [employer] [facility] Comment on above: Performed By: #### C BCAD, MG, URIC, LIPD, PHOS, CMP, DBIL #### [facility] [address] [place], [place] [id number] Glucose [Mass/Vol] 121 mg/dL High 65-99 [facility] [place] [employer] Comment on above: Result Comment: For FASTING Glucose --- ADA reference ranges: Normal 65-99 mg/dl Prediabetes 100-125 Diabetes >/= 126 Performed By: #### C BCAD, MG, URIC, LIPD, PHOS, CMP, DBIL #### [facility] [address] [place], [place] [id number] Potassium [Moles/Vol] 4.5 mmol/L Normal 3.5-5.5 [facility] Comment on above: Performed By: #### C BCAD, MG, URIC, LIPD, PHOS, CMP, DBIL #### [facility] [address] [place], [place] [id number] Protein [Mass/Vol] 6.8 g/dL Normal 6.1-8.1 [facility] Comment on above: Performed By: #### C BCAD, MG, URIC, LIPD, PHOS, CMP, DBIL #### [facility] [address] [place], [place] [id number] Sodium [Moles/Vol] 143 mmol/L Normal 135-146 [facility] Comment on above: Performed By: #### C BCAD, MG, URIC, LIPD, PHOS, CMP, DBIL #### [facility] [address] [place], [place] [id number] Urea nitrogen [Mass/Vol] 23 mg/dL Normal 7-25 [facility] Comment on above: Performed By: #### C BCAD, MG, URIC, LIPD, PHOS, CMP, DBIL #### [facility] [address] [place], [place] [id number] Lipid Panelon 09-27-2021 Cholesterol [Mass/Vol] 131 mg/dL Normal 125-200 [facility] Comment on above: Result Comment: Low risk < 200mg/dL Borderline risk 201-239 mg/dl High risk > or equal to 240 Performed By: #### C BCAD, MG, URIC, LIPD, PHOS, CMP, DBIL #### [facility] [address] [place], [place] [id number] Cholesterol in HDL [Mass/Vol] 43 mg/dL Normal >40 [facility] Comment on above: Result Comment: High Cardiovascular Risk HDL <40 mg/dL Low Cardiovascular Risk HDL > or equal to 60 mg/dl Performed By: #### C BCAD, MG, URIC, LIPD, PHOS, CMP, DBIL #### [facility] [address] [place], [place] [id number] Cholesterol in LDL [Mass/Vol] 52 mg/dL Normal [facility] Comment on above: Result Comment: LDL ATP III CLASSIFICATION LDL less than 100 mg/dl Optimal LDL 100-129 mg/dl Near or above optimal LDL 130-159 Borderline high LDL 160-189 High LDL greater than 189 mg/dl Very High Performed By: #### C BCAD, MG, URIC, LIPD, PHOS, CMP, DBIL #### [facility] [address] [place], [place] [id number] Cholesterol in VLDL [Mass/Vol] 36 mg/dL Normal [facility] Comment on above: Performed By: #### C BCAD, MG, URIC, LIPD, PHOS, CMP, DBIL #### [facility] [address] [place], [place] [id number] Cholesterol.total/C holesterol in HDL [Mass ratio] 3 {ratio} Normal [facility] [employer] Comment on above: Performed By: #### C BCAD, MG, URIC, LIPD, PHOS, CMP, DBIL #### [facility] [address] [place], [place] [id number] Triglyceride [Mass/Vol] 180 mg/dL High 30-150 [facility] [employer] [facility] Comment on above: Result Comment: TRIG ATPIII CLASSIFICATIONS TRIG less than 150 mg/dl Normal TRIG 150-199 mg/dl Borderline High TRIG 200-500 mg/dl High TRIG greather than 500 mg/dl Very High Performed By: #### C BCAD, MG, URIC, LIPD, PHOS, CMP, DBIL #### [facility] [address] [place], [place] [id number] Magnesiumon 09-27-2021 Magnesium [Mass/Vol] 1.9 mg/dL Normal 1.5-2.3 [facility] [employer] [facility] Comment on above: Performed By: #### C BCAD, MG, URIC, LIPD, PHOS, CMP, DBIL #### [facility] [address] [place], [place] [id number] Phosphoruson 09-27-2021 Phosphate [Mass/Vol] 3.6 mg/dL Normal 2.2-4.4 [facility] [employer] [facility] Comment on above: Performed By: #### C BCAD, MG, URIC, LIPD, PHOS, CMP, DBIL #### [facility] [address] [place], [place] [id number] Uric Acidon 09-27-2021 URIC 6.5 mg/dL Normal 4.0-8.0 [facility] [employer] [facility] Comment on above: Result Comment: Refe rence range change 03/03/2017. Prior reference range F 2.4-5.7mg/dL. M 3.4-7.0 mg/dL. Performed By: #### C BCAD, MG, URIC, LIPD, PHOS, CMP, DBIL #### [facility] [address] [place], [place] [id number] Bilirubin, Directon 08-25-19 22 DBIL <0.2 Normal [facility] [employer] [facility] Comment on above: Result Comment: Refe rence range change 03/03/2017. Prior reference range 0.1-0.3 mg/dL. Performed By: #### C BCAD, MG, URIC, LIPD, PHOS, CMP, DBIL #### [facility] [address] [place], [place] [id number] Complete Blood Count with Au to Diffon 08-24-2021 Basophils (Bld) [#/Vol] 0.06 10*3/uL Normal 0.00-0.20 [facility] Comment on above: Performed By: #### C BCAD, MG, URIC, LIPD, PHOS, CMP, DBIL #### [facility] [address] [place], [place] [id number] Basophils/100 WBC (Bld) 1.1 % Normal [facility] Comment on above: Performed By: #### C BCAD, MG, URIC, LIPD, PHOS, CMP, DBIL #### [facility] [address] [place], [place] [id number] Eosinophils (Bld) [#/Vol] 0.10 10*3/uL Normal 0.02-0.50 [facility] Comment on above: Performed By: #### C BCAD, MG, URIC, LIPD, PHOS, CMP, DBIL #### [facility] [address] [place], [place] [id number] Eosinophils/100 WBC (Bld) 1.8 % Normal [facility] [employer] Comment on above: Performed By: #### C BCAD, MG, URIC, LIPD, PHOS, CMP, DBIL #### [facility] [address] [place], [place] [id number] Erythrocyte distribution width (RBC) [Ratio] 14.5 % Normal 11.0-15.0 [facility] Comment on above: Performed By: #### C BCAD, MG, URIC, LIPD, PHOS, CMP, DBIL #### [facility] [address] [place], [place] [id number] Hematocrit (Bld) [Volume fraction] 50.4 % High 38.5-50.0 [facility] Comment on above: Performed By: #### C BCAD, MG, URIC, LIPD, PHOS, CMP, DBIL #### [facility] [address] [place], [place] [id number] Hemoglobin (Bld) [Mass/Vol] 16.4 g/dL Normal 13.0-17.1 [facility] [employer] [facility] Comment on above: Performed By: #### C BCAD, MG, URIC, LIPD, PHOS, CMP, DBIL #### [facility] [address] [place], [place] [id number] Lymphocytes (Bld) [#/Vol] 0.9 10*3/uL Normal 0.9-3.9 [facility] Comment on above: Performed By: #### C BCAD, MG, URIC, LIPD, PHOS, CMP, DBIL #### [facility] [address] [place], [place] [id number] Lymphocytes/100 WBC (Bld) 15.2 % Normal [facility] Comment on above: Performed By: #### C BCAD, MG, URIC, LIPD, PHOS, CMP, DBIL #### [facility] [address] [place], [place] [id number] MCH (RBC) [Entitic mass] 30.5 pg Normal 27.0-33.0 [facility] Comment on above: Performed By: #### C BCAD, MG, URIC, LIPD, PHOS, CMP, DBIL #### [facility] [address] [place], [place] [id number] MCHC (RBC) [Mass/Vol] 32.5 g/dL Normal 32.0-36.0 [facility] Comment on above: Performed By: #### C BCAD, MG, URIC, LIPD, PHOS, CMP, DBIL #### [facility] [address] [place], [place] [id number] MCV (RBC) [Entitic vol] 94 fL Normal 80-100 [facility] [employer] [facility] Comment on above: Performed By: #### C BCAD, MG, URIC, LIPD, PHOS, CMP, DBIL #### [facility] [address] [place], [place] [id number] Monocytes (Bld) [#/Vol] 0.7 10*3/uL Normal 0.2-0.9 [facility] Comment on above: Performed By: #### C BCAD, MG, URIC, LIPD, PHOS, CMP, DBIL #### [facility] [address] [place], [place] [id number] Monocytes/100 WBC (Bld) 12.7 % Normal [facility] Comment on above: Performed By: #### C BCAD, MG, URIC, LIPD, PHOS, CMP, DBIL #### [facility] [address] [place], [place] [id number] Neutrophils (Bld) [#/Vol] 3.9 10*3/uL Normal 1.5-7.8 [facility] Comment on above: Performed By: #### C BCAD, MG, URIC, LIPD, PHOS, CMP, DBIL #### [facility] [address] [place], [place] [id number] Neutrophils/100 WBC (Bld) 68.7 % Normal [facility] Comment on above: Performed By: #### C BCAD, MG, URIC, LIPD, PHOS, CMP, DBIL #### [facility] [address] [place], [place] [id number] Platelet mean volume (Bld) [Entitic vol] 11.20 fL Normal 7.50-12.50 [facility] Comment on above: Performed By: #### C BCAD, MG, URIC, LIPD, PHOS, CMP, DBIL #### [facility] [address] [place], [place] [id number] Platelets (Bld) [#/Vol] 230 10*3/uL Normal 140-400 [facility] [employer] [facility] Comment on above: Performed By: #### C BCAD, MG, URIC, LIPD, PHOS, CMP, DBIL #### [facility] [address] [place], [place] [id number] RBC (Bld) [#/Vol] 5.38 10*6/uL Normal 4.20-5.80 [facility] Comment on above: Performed By: #### C BCAD, MG, URIC, LIPD, PHOS, CMP, DBIL #### [facility] [address] [place], [place] [id number] RDW-SD 49.1 fL Normal 37.0-50.0 [facility] [employer] [facility] Comment on above: Performed By: #### C BCAD, MG, URIC, LIPD, PHOS, CMP, DBIL #### [facility] [address] [place], [place] [id number] WBC (Bld) [#/Vol] 5.6 10*3/uL Normal 3.8-11.0 [facility] [employer] Comment on above: Performed By: #### C BCAD, MG, URIC, LIPD, PHOS, CMP, DBIL #### [facility] [address] [place], [place] [id number] Comprehensive Metabolic Pane nitin 08-24-2021 Albumin [Mass/Vol] 5.0 g/dL Normal 3.6-5.1 [facility] [employer] [facility] Comment on above: Performed By: #### C BCAD, MG, URIC, LIPD, PHOS, CMP, DBIL #### [facility] [address] [place], [place] [id number] Albumin/Globulin [Mass ratio] 2.6 {ratio} High 1.0-2.5 [facility] [employer] Comment on above: Performed By: #### C BCAD, MG, URIC, LIPD, PHOS, CMP, DBIL #### [facility] [address] [place], [place] [id number] ALP [Catalytic activity/Vol] 75 U/L Normal 40-129 [facility] [employer] Comment on above: Performed By: #### C BCAD, MG, URIC, LIPD, PHOS, CMP, DBIL #### [facility] [address] [place], [place] [id number] ALT [Catalytic activity/Vol] 30 U/L Normal 9-46 [facility] [employer] Comment on above: Result Comment: 03/17 Female reference range changed. Performed By: #### C BCAD, MG, URIC, LIPD, PHOS, CMP, DBIL #### [facility] [address] [place], [place] [id number] Anion gap [Moles/Vol] 18 mmol/L Normal 12-20 [facility] [employer] Comment on above: Result Comment: Effe ctive 04/22/2019 reference range changed. Performed By: #### C BCAD, MG, URIC, LIPD, PHOS, CMP, DBIL #### [facility] [address] [place], [place] [id number] AST [Catalytic activity/Vol] 26 U/L Normal 10-40 [facility] Comment on above: Performed By: #### C BCAD, MG, URIC, LIPD, PHOS, CMP, DBIL #### [facility] [address] [place], [place] [id number] Bilirubin [Mass/Vol] 0.67 mg/dL Normal 0.30-1.20 [facility] Comment on above: Performed By: #### C BCAD, MG, URIC, LIPD, PHOS, CMP, DBIL #### [facility] [address] [place], [place] [id number] BUN/CREA 19 Ratio Normal 6-22 [facility] Comment on above: Performed By: #### C BCAD, MG, URIC, LIPD, PHOS, CMP, DBIL #### [facility] [address] [place], [place] [id number] Calcium [Mass/Vol] 9.9 mg/dL Normal 8.6-10.2 [facility] Comment on above: Performed By: #### C BCAD, MG, URIC, LIPD, PHOS, CMP, DBIL #### [facility] [address] [place], [place] [id number] Chloride [Moles/Vol] 103 mmol/L Normal 98-107 [facility] Comment on above: Performed By: #### C BCAD, MG, URIC, LIPD, PHOS, CMP, DBIL #### [facility] [address] [place], [place] [id number] CO2 [Moles/Vol] 25 mmol/L Normal 20-31 [facility] Comment on above: Performed By: #### C BCAD, MG, URIC, LIPD, PHOS, CMP, DBIL #### [facility] [address] [place], [place] [id number] Creatinine [Mass/Vol] 1.1 mg/dL Normal 0.7-1.4 [place] [employer] Comment on above: Performed By: #### C BCAD, MG, URIC, LIPD, PHOS, CMP, DBIL #### [facility] [address] [place], [place] [id number] eGFRAA 81 mL/min/1.73m2 Normal >60 [facility] [employer] [facility] Comment on above: Performed By: #### C BCAD, MG, URIC, LIPD, PHOS, CMP, DBIL #### [facility] [address] [place], [place] [id number] eGFRNAA 67 mL/min/1.73m2 Normal >60 [facility] [employer] [facility] Comment on above: Performed By: #### C BCAD, MG, URIC, LIPD, PHOS, CMP, DBIL #### [facility] [address] [place], [place] [id number] Globulin (S) [Mass/Vol] 1.9 g/dL Normal 1.9-3.7 [facility] [employer] Comment on above: Performed By: #### C BCAD, MG, URIC, LIPD, PHOS, CMP, DBIL #### [facility] [address] [place], [place] [id number] Glucose [Mass/Vol] 125 mg/dL High 65-99 [facility] [place] [employer] Comment on above: Result Comment: For FASTING Glucose --- ADA reference ranges: Normal 65-99 mg/dl Prediabetes 100-125 Diabetes >/= 126 Performed By: #### C BCAD, MG, URIC, LIPD, PHOS, CMP, DBIL #### [facility] [address] [place], [place] [id number] Potassium [Moles/Vol] 4.2 mmol/L Normal 3.5-5.5 [facility] [employer] [facility] Comment on above: Performed By: #### C BCAD, MG, URIC, LIPD, PHOS, CMP, DBIL #### [facility] [address] [place], [place] [id number] Protein [Mass/Vol] 6.9 g/dL Normal 6.1-8.1 [place] [facility] [place] [employer] Comment on above: Performed By: #### C BCAD, MG, URIC, LIPD, PHOS, CMP, DBIL #### [facility] [address] [place], [place] [id number] Sodium [Moles/Vol] 141 mmol/L Normal 135-146 [facility] Comment on above: Performed By: #### C BCAD, MG, URIC, LIPD, PHOS, CMP, DBIL #### [facility] [address] [place], [place] [id number] Urea nitrogen [Mass/Vol] 22 mg/dL Normal 7-25 [facility] Comment on above: Performed By: #### C BCAD, MG, URIC, LIPD, PHOS, CMP, DBIL #### [facility] [address] [place], [place] [id number] Hemoglobin A1Con 08-24-2021 EAG 134.11 Normal [facility] Comment on above: Performed By: #### C BCAD, MG, URIC, LIPD, PHOS, CMP, DBIL #### [facility] [address] [place], [place] [id number] HbA1c (Bld) [Mass fraction] 6.3 % High 4.0-6.0 [facility] Comment on above: Performed By: #### C BCAD, MG, URIC, LIPD, PHOS, CMP, DBIL #### [facility] [address] [place], [place] [id number] Lipid Panelon 08-24-2021 Cholesterol [Mass/Vol] 110 mg/dL Low 125-200 [facility] Comment on above: Result Comment: Low risk < 200mg/dL Borderline risk 201-239 mg/dl High risk > or equal to 240 Performed By: #### C BCAD, MG, URIC, LIPD, PHOS, CMP, DBIL #### [facility] [address] [place], [place] [id number] Cholesterol in HDL [Mass/Vol] 38 mg/dL Low >40 [facility] Comment on above: Result Comment: High Cardiovascular Risk HDL <40 mg/dL Low Cardiovascular Risk HDL > or equal to 60 mg/dl Performed By: #### C BCAD, MG, URIC, LIPD, PHOS, CMP, DBIL #### [facility] [address] [place], [place] [id number] Cholesterol in LDL [Mass/Vol] 46 mg/dL Normal [facility] Comment on above: Result Comment: LDL ATP III CLASSIFICATION LDL less than 100 mg/dl Optimal LDL 100-129 mg/dl Near or above optimal LDL 130-159 Borderline high LDL 160-189 High LDL greater than 189 mg/dl Very High Performed By: #### C BCAD, MG, URIC, LIPD, PHOS, CMP, DBIL #### [facility] [address] [place], [place] [id number] Cholesterol in VLDL [Mass/Vol] 26 mg/dL Normal [facility] Comment on above: Performed By: #### C BCAD, MG, URIC, LIPD, PHOS, CMP, DBIL #### [facility] [address] [place], [place] [id number] Cholesterol.total/C holesterol in HDL [Mass ratio] 3 {ratio} Normal [facility] Comment on above: Performed By: #### C BCAD, MG, URIC, LIPD, PHOS, CMP, DBIL #### [facility] [address] [place], [place] [id number] Triglyceride [Mass/Vol] 131 mg/dL Normal 30-150 [facility] [employer] Comment on above: Result Comment: TRIG ATPIII CLASSIFICATIONS TRIG less than 150 mg/dl Normal TRIG 150-199 mg/dl Borderline High TRIG 200-500 mg/dl High TRIG greather than 500 mg/dl Very High Performed By: #### C BCAD, MG, URIC, LIPD, PHOS, CMP, DBIL #### [facility] [address] [place], [place] [id number] Magnesiumon 08-24-2021 Magnesium [Mass/Vol] 2.0 mg/dL Normal 1.5-2.3 [facility] Comment on above: Performed By: #### C BCAD, MG, URIC, LIPD, PHOS, CMP, DBIL #### [facility] [address] [place], [place] [id number] Phosphoruson 08-24-2021 Phosphate [Mass/Vol] 3.5 mg/dL Normal 2.2-4.4 [facility] Comment on above: Performed By: #### C BCAD, MG, URIC, LIPD, PHOS, CMP, DBIL #### [facility] [address] [place], [place] [id number] Uric Acidon 08-24-2021 URIC 6.6 mg/dL Normal 4.0-8.0 [facility] [employer] Comment on above: Result Comment: Refe rence range change 03/03/2017. Prior reference range F 2.4-5.7mg/dL. M 3.4-7.0 mg/dL. Performed By: #### C BCAD, MG, URIC, LIPD, PHOS, CMP, DBIL #### [facility] [address] [place], [place] [id number] Bilirubin, Directon 07-30-19 22 DBIL <0.2 Normal [facility] [employer] Comment on above: Result Comment: Refe rence range change 03/03/2017. Prior reference range 0.1-0.3 mg/dL. Performed By: #### C BCAD, MG, URIC, LIPD, PHOS, CMP, DBIL #### [facility] [address] [place], [place] [id number] Complete Blood Count with Au to Diffon 07-29-2021 Basophils (Bld) [#/Vol] 0.07 10*3/uL Normal 0.00-0.20 [facility] [employer] Comment on above: Performed By: #### C BCAD, MG, URIC, LIPD, PHOS, CMP, DBIL #### [facility] [address] [place], [place] [id number] Basophils/100 WBC (Bld) 1.1 % Normal [facility] [employer] Comment on above: Performed By: #### C BCAD, MG, URIC, LIPD, PHOS, CMP, DBIL #### [facility] [address] [place], [place] [id number] Eosinophils (Bld) [#/Vol] 0.15 10*3/uL Normal 0.02-0.50 [facility] [employer] Comment on above: Performed By: #### C BCAD, MG, URIC, LIPD, PHOS, CMP, DBIL #### [facility] [address] [place], [place] [id number] Eosinophils/100 WBC (Bld) 2.4 % Normal [facility] [employer] Comment on above: Performed By: #### C BCAD, MG, URIC, LIPD, PHOS, CMP, DBIL #### [facility] [address] [place], [place] [id number] Erythrocyte distribution width (RBC) [Ratio] 14.0 % Normal 11.0-15.0 [facility] Comment on above: Performed By: #### C BCAD, MG, URIC, LIPD, PHOS, CMP, DBIL #### [facility] [address] [place], [place] [id number] Hematocrit (Bld) [Volume fraction] 50.3 % High 38.5-50.0 [facility] Comment on above: Performed By: #### C BCAD, MG, URIC, LIPD, PHOS, CMP, DBIL #### [facility] [address] [place], [place] [id number] Hemoglobin (Bld) [Mass/Vol] 16.5 g/dL Normal 13.0-17.1 [facility] [employer] Comment on above: Performed By: #### C BCAD, MG, URIC, LIPD, PHOS, CMP, DBIL #### [facility] [address] [place], [place] [id number] Lymphocytes (Bld) [#/Vol] 0.9 10*3/uL Normal 0.9-3.9 [facility] Comment on above: Performed By: #### C BCAD, MG, URIC, LIPD, PHOS, CMP, DBIL #### [facility] [address] [place], [place] [id number] Lymphocytes/100 WBC (Bld) 13.4 % Normal [facility] [employer] Comment on above: Performed By: #### C BCAD, MG, URIC, LIPD, PHOS, CMP, DBIL #### [facility] [address] [place], [place] [id number] MCH (RBC) [Entitic mass] 29.9 pg Normal 27.0-33.0 [facility] Specialist Comment on above: Performed By: #### C BCAD, MG, URIC, LIPD, PHOS, CMP, DBIL #### [facility] [address] [place], [place] [id number] MCHC (RBC) [Mass/Vol] 32.8 g/dL Normal 32.0-36.0 [facility] Specialist Comment on above: Performed By: #### C BCAD, MG, URIC, LIPD, PHOS, CMP, DBIL #### [facility] [address] [place], [place] [id number] MCV (RBC) [Entitic vol] 91 fL Normal 80-100 [facility] [employer] Comment on above: Performed By: #### C BCAD, MG, URIC, LIPD, PHOS, CMP, DBIL #### [facility] [address] [place], [place] [id number] Monocytes (Bld) [#/Vol] 0.5 10*3/uL Normal 0.2-0.9 [facility] Specialist Comment on above: Performed By: #### C BCAD, MG, URIC, LIPD, PHOS, CMP, DBIL #### [facility] [address] [place], [place] [id number] Monocytes/100 WBC (Bld) 8.5 % Normal [facility] Specialist Comment on above: Performed By: #### C BCAD, MG, URIC, LIPD, PHOS, CMP, DBIL #### [facility] [address] [place], [place] [id number] Neutrophils (Bld) [#/Vol] 4.7 10*3/uL Normal 1.5-7.8 [facility] [employer] Comment on above: Performed By: #### C BCAD, MG, URIC, LIPD, PHOS, CMP, DBIL #### [facility] [address] [place], [place] [id number] Neutrophils/100 WBC (Bld) 73.8 % Normal [facility] Specialist Comment on above: Performed By: #### C BCAD, MG, URIC, LIPD, PHOS, CMP, DBIL #### [facility] [address] [place], [place] [id number] Platelet mean volume (Bld) [Entitic vol] 10.40 fL Normal 7.50-12.50 [facility] [employer] Comment on above: Performed By: #### C BCAD, MG, URIC, LIPD, PHOS, CMP, DBIL #### [facility] [address] [place], [place] [id number] Platelets (Bld) [#/Vol] 266 10*3/uL Normal 140-400 [facility] [employer] Comment on above: Performed By: #### C BCAD, MG, URIC, LIPD, PHOS, CMP, DBIL #### [facility] [address] [place], [place] [id number] RBC (Bld) [#/Vol] 5.51 10*6/uL Normal 4.20-5.80 [facility] Specialist Comment on above: Performed By: #### C BCAD, MG, URIC, LIPD, PHOS, CMP, DBIL #### [facility] [address] [place], [place] [id number] RDW-SD 47.4 fL Normal 37.0-50.0 [facility] Special[facility] Comment on above: Performed By: #### C BCAD, MG, URIC, LIPD, PHOS, CMP, DBIL #### [facility] [address] [place], [place] [id number] WBC (Bld) [#/Vol] 6.3 10*3/uL Normal 3.8-11.0 [facility] [employer] Comment on above: Performed By: #### C BCAD, MG, URIC, LIPD, PHOS, CMP, DBIL #### [facility] [address] [place], [place] [id number] Comprehensive Metabolic Pane [facility] 07-29-2021 Albumin [Mass/Vol] 5.0 g/dL Normal 3.6-5.1 [facility] [employer] Comment on above: Performed By: #### C BCAD, MG, URIC, LIPD, PHOS, CMP, DBIL #### [facility] [address] [place], [place] [id number] Albumin/Globulin [Mass ratio] 2.6 {ratio} High 1.0-2.5 [facility] [employer] Comment on above: Performed By: #### C BCAD, MG, URIC, LIPD, PHOS, CMP, DBIL #### [facility] [address] [place], [place] [id number] ALP [Catalytic activity/Vol] 73 U/L Normal 40-129 [facility] Special[facility] Comment on above: Performed By: #### C BCAD, MG, URIC, LIPD, PHOS, CMP, DBIL #### [facility] [address] [place], [place] [id number] ALT [Catalytic activity/Vol] 27 U/L Normal 9-46 [facility] Special[facility] Comment on above: Result Comment: 03/17 Female reference range changed. Performed By: #### C BCAD, MG, URIC, LIPD, PHOS, CMP, DBIL #### [facility] [address] [place], [place] [id number] Anion gap [Moles/Vol] 18 mmol/L Normal 12-20 [facility] Comment on above: Result Comment: Effe ctive 04/22/2019 reference range changed. Performed By: #### C BCAD, MG, URIC, LIPD, PHOS, CMP, DBIL #### [facility] [address] [place], [place] [id number] AST [Catalytic activity/Vol] 23 U/L Normal 10-40 [facility] Special[facility] Comment on above: Performed By: #### C BCAD, MG, URIC, LIPD, PHOS, CMP, DBIL #### [facility] [address] [place], [place] [id number] Bilirubin [Mass/Vol] 0.68 mg/dL Normal 0.30-1.20 [facility] Comment on above: Performed By: #### C BCAD, MG, URIC, LIPD, PHOS, CMP, DBIL #### [facility] [address] [place], [place] [id number] BUN/CREA 16 Ratio Normal 6-22 [facility] Comment on above: Performed By: #### C BCAD, MG, URIC, LIPD, PHOS, CMP, DBIL #### [facility] [address] [place], [place] [id number] Calcium [Mass/Vol] 10.0 mg/dL Normal 8.6-10.2 [facility] Comment on above: Performed By: #### C BCAD, MG, URIC, LIPD, PHOS, CMP, DBIL #### [facility] [address] [place], [place] [id number] Chloride [Moles/Vol] 103 mmol/L Normal 98-107 [facility] Comment on above: Performed By: #### C BCAD, MG, URIC, LIPD, PHOS, CMP, DBIL #### [facility] [address] [place], [place] [id number] CO2 [Moles/Vol] 25 mmol/L Normal 20-31 [facility] Specialist Comment on above: Performed By: #### C BCAD, MG, URIC, LIPD, PHOS, CMP, DBIL #### [facility] [address] [place], [place] [id number] Creatinine [Mass/Vol] 1.1 mg/dL Normal 0.7-1.4 [facility] Special[facility] Comment on above: Performed By: #### C BCAD, MG, URIC, LIPD, PHOS, CMP, DBIL #### [facility] [address] [place], [place] [id number] eGFRAA 80 mL/min/1.73m2 Normal >60 [facility] Special[facility] Comment on above: Performed By: #### C BCAD, MG, URIC, LIPD, PHOS, CMP, DBIL #### [facility] [address] [place], [place] [id number] eGFRNAA 66 mL/min/1.73m2 Normal >60 [facility] Special[facility] Comment on above: Performed By: #### C BCAD, MG, URIC, LIPD, PHOS, CMP, DBIL #### [facility] [address] [place], [place] [id number] Globulin (S) [Mass/Vol] 1.9 g/dL Normal 1.9-3.7 [facility] Comment on above: Performed By: #### C BCAD, MG, URIC, LIPD, PHOS, CMP, DBIL #### [facility] [address] [place], [place] [id number] Glucose [Mass/Vol] 109 mg/dL High 65-99 [facility] Comment on above: Result Comment: For FASTING Glucose --- ADA reference ranges: Normal 65-99 mg/dl Prediabetes 100-125 Diabetes >/= 126 Performed By: #### C BCAD, MG, URIC, LIPD, PHOS, CMP, DBIL #### [facility] [address] [place], [place] [id number] Potassium [Moles/Vol] 4.7 mmol/L Normal 3.5-5.5 [facility] [employer] Comment on above: Performed By: #### C BCAD, MG, URIC, LIPD, PHOS, CMP, DBIL #### [facility] [address] [place], [place] [id number] Protein [Mass/Vol] 6.9 g/dL Normal 6.1-8.1 [facility] Comment on above: Performed By: #### C BCAD, MG, URIC, LIPD, PHOS, CMP, DBIL #### [facility] [address] [place], [place] [id number] Sodium [Moles/Vol] 141 mmol/L Normal 135-146 [facility] [employer] [facility] Comment on above: Performed By: #### C BCAD, MG, URIC, LIPD, PHOS, CMP, DBIL #### [facility] [address] [place], [place] [id number] Urea nitrogen [Mass/Vol] 18 mg/dL Normal 7-25 [facility] [employer] [facility] Comment on above: Performed By: #### C BCAD, MG, URIC, LIPD, PHOS, CMP, DBIL #### [facility] [address] [place], [place] [id number] Lipid Panelon 07-29-2021 Cholesterol [Mass/Vol] 121 mg/dL Low 125-200 [facility] [employer] Comment on above: Result Comment: Low risk < 200mg/dL Borderline risk 201-239 mg/dl High risk > or equal to 240 Performed By: #### C BCAD, MG, URIC, LIPD, PHOS, CMP, DBIL #### [facility] [address] [place], [place] [id number] Cholesterol in HDL [Mass/Vol] 41 mg/dL Normal >40 [facility] [employer] Comment on above: Result Comment: High Cardiovascular Risk HDL <40 mg/dL Low Cardiovascular Risk HDL > or equal to 60 mg/dl Performed By: #### C BCAD, MG, URIC, LIPD, PHOS, CMP, DBIL #### [facility] [address] [place], [place] [id number] Cholesterol in LDL [Mass/Vol] 56 mg/dL Normal [facility] [employer] Comment on above: Result Comment: LDL ATP III CLASSIFICATION LDL less than 100 mg/dl Optimal LDL 100-129 mg/dl Near or above optimal LDL 130-159 Borderline high LDL 160-189 High LDL greater than 189 mg/dl Very High Performed By: #### C BCAD, MG, URIC, LIPD, PHOS, CMP, DBIL #### [facility] [address] [place], [place] [id number] Cholesterol in VLDL [Mass/Vol] 24 mg/dL Normal [facility] [employer] Comment on above: Performed By: #### C BCAD, MG, URIC, LIPD, PHOS, CMP, DBIL #### [facility] [address] [place], [place] [id number] Cholesterol.total/C holesterol in HDL [Mass ratio] 3 {ratio} Normal [facility] [employer] Comment on above: Performed By: #### C BCAD, MG, URIC, LIPD, PHOS, CMP, DBIL #### [facility] [address] [place], [place] [id number] Triglyceride [Mass/Vol] 118 mg/dL Normal 30-150 [facility] [employer] Comment on above: Result Comment: TRIG ATPIII CLASSIFICATIONS TRIG less than 150 mg/dl Normal TRIG 150-199 mg/dl Borderline High TRIG 200-500 mg/dl High TRIG greather than 500 mg/dl Very High Performed By: #### C BCAD, MG, URIC, LIPD, PHOS, CMP, DBIL #### [facility] [address] [place], [place] [id number] Magnesiumon 07-29-2021 Magnesium [Mass/Vol] 2.0 mg/dL Normal 1.5-2.3 [facility] [employer] Comment on above: Performed By: #### C BCAD, MG, URIC, LIPD, PHOS, CMP, DBIL #### [facility] [address] [place], [place] [id number] Phosphoruson 07-29-2021 Phosphate [Mass/Vol] 3.3 mg/dL Normal 2.2-4.4 [facility] [employer] Comment on above: Performed By: #### C BCAD, MG, URIC, LIPD, PHOS, CMP, DBIL #### [facility] [address] [place], [place] [id number] Q - TACROLIMUSon 07-29-2021 TACROLIMUS, HIGHLY SENSITIVE, LC/MS/MS 6.3 mcg/L Normal [facility] [employer] Comment on above: Order Comment: [facility] performed at: [facility], [facility], [address] [facility], [address] [place] [address], [id number], Socket Puller: Shaheed Bazzi MDQuest Collection Date/Time: [id number] Results Received Date/Time: [id number] Reported Date/Time: Result Comment: No d efinitive therapeutic or toxic ranges have been established. Optimal blood drug levels are influenced by type of transplant, patient response, time post- transplant, co-administration of other drugs, and drug formulation. The following trough range is a suggested guideline: 5.0-20.0 mcg/L. This test was developed and its analytical performance characteristics have been determined by [facility]. It has not been cleared or approved by the FDA. This assay has been validated pursuant to the CLIA regulations and is used for clinical purposes. Performed By: #### C BCAD, MG, URIC, LIPD, PHOS, CMP, DBIL #### [facility] [address] [place], [place] [id number] Uric Acidon 07-29-2021 URIC 6.1 mg/dL Normal 4.0-8.0 [facility] [employer] Comment on above: Result Comment: Refe rence range change 03/03/2017. Prior reference range F 2.4-5.7mg/dL. M 3.4-7.0 mg/dL. Performed By: #### C BCAD, MG, URIC, LIPD, PHOS, CMP, DBIL #### [facility] [address] [place], [place] [id number] Bilirubin, Directon 06-29-19 DBIL <0.2 Normal [facility] [employer] Comment on above: Result Comment: Refe rence range change 03/03/2017. Prior reference range 0.1-0.3 mg/dL. Performed By: #### C BCAD, MG, URIC, LIPD, PHOS, CMP, DBIL #### [facility] [address] [place], [place] [id number] Complete Blood Count with Au to Diffon 06-28-2021 Basophils (Bld) [#/Vol] 0.05 10*3/uL Normal 0.00-0.20 [facility] Specialist Comment on above: Performed By: #### C BCAD, MG, URIC, LIPD, PHOS, CMP, DBIL #### [facility] [address] [place], [place] [id number] Basophils/100 WBC (Bld) 0.8 % Normal [facility] [employer] Comment on above: Performed By: #### C BCAD, MG, URIC, LIPD, PHOS, CMP, DBIL #### [facility] [address] [place], [place] [id number] Eosinophils (Bld) [#/Vol] 0.10 10*3/uL Normal 0.02-0.50 [facility] [employer] Comment on above: Performed By: #### C BCAD, MG, URIC, LIPD, PHOS, CMP, DBIL #### [facility] [address] [place], [place] [id number] Eosinophils/100 WBC (Bld) 1.6 % Normal [facility] [employer] Comment on above: Performed By: #### C BCAD, MG, URIC, LIPD, PHOS, CMP, DBIL #### [facility] [address] [place], [place] [id number] Erythrocyte distribution width (RBC) [Ratio] 14.6 % Normal 11.0-15.0 [facility] [employer] [facility] Comment on above: Performed By: #### C BCAD, MG, URIC, LIPD, PHOS, CMP, DBIL #### [facility] [address] [place], [place] [id number] Hematocrit (Bld) [Volume fraction] 50.7 % High 38.5-50.0 [facility] [employer] Comment on above: Performed By: #### C BCAD, MG, URIC, LIPD, PHOS, CMP, DBIL #### [facility] [address] [place], [place] [id number] Hemoglobin (Bld) [Mass/Vol] 16.2 g/dL Normal 13.0-17.1 [facility] Specialist Comment on above: Performed By: #### C BCAD, MG, URIC, LIPD, PHOS, CMP, DBIL #### [facility] [address] [place], [place] [id number] Lymphocytes (Bld) [#/Vol] 1.0 10*3/uL Normal 0.9-3.9 [facility] Specialist Comment on above: Performed By: #### C BCAD, MG, URIC, LIPD, PHOS, CMP, DBIL #### [facility] [address] [place], [place] [id number] Lymphocytes/100 WBC (Bld) 16.2 % Normal [facility] Specialist Comment on above: Performed By: #### C BCAD, MG, URIC, LIPD, PHOS, CMP, DBIL #### [facility] [address] [place], [place] [id number] MCH (RBC) [Entitic mass] 30.0 pg Normal 27.0-33.0 [facility] Specialist Comment on above: Performed By: #### C BCAD, MG, URIC, LIPD, PHOS, CMP, DBIL #### [facility] [address] [place], [place] [id number] MCHC (RBC) [Mass/Vol] 32.0 g/dL Normal 32.0-36.0 [facility] Specialist Comment on above: Performed By: #### C BCAD, MG, URIC, LIPD, PHOS, CMP, DBIL #### [facility] [address] [place], [place] [id number] MCV (RBC) [Entitic vol] 94 fL Normal 80-100 [facility] Specialist Comment on above: Performed By: #### C BCAD, MG, URIC, LIPD, PHOS, CMP, DBIL #### [facility] [address] [place], [place] [id number] Monocytes (Bld) [#/Vol] 0.9 10*3/uL Normal 0.2-0.9 [facility] Specialist Comment on above: Performed By: #### C BCAD, MG, URIC, LIPD, PHOS, CMP, DBIL #### [facility] [address] [place], [place] [id number] Monocytes/100 WBC (Bld) 13.4 % Normal [facility] Comment on above: Performed By: #### C BCAD, MG, URIC, LIPD, PHOS, CMP, DBIL #### [facility] [address] [place], [place] [id number] Neutrophils (Bld) [#/Vol] 4.3 10*3/uL Normal 1.5-7.8 [facility] Specialist Comment on above: Performed By: #### C BCAD, MG, URIC, LIPD, PHOS, CMP, DBIL #### [facility] [address] [place], [place] [id number] Neutrophils/100 WBC (Bld) 67.7 % Normal [facility] Comment on above: Performed By: #### C BCAD, MG, URIC, LIPD, PHOS, CMP, DBIL #### [facility] [address] [place], [place] [id number] Platelet mean volume (Bld) [Entitic vol] 11.00 fL Normal 7.50-12.50 [facility] Specialist Comment on above: Performed By: #### C BCAD, MG, URIC, LIPD, PHOS, CMP, DBIL #### [facility] [address] [place], [place] [id number] Platelets (Bld) [#/Vol] 239 10*3/uL Normal 140-400 [facility] Specialist Comment on above: Performed By: #### C BCAD, MG, URIC, LIPD, PHOS, CMP, DBIL #### [facility] [address] [place], [place] [id number] RBC (Bld) [#/Vol] 5.40 10*6/uL Normal 4.20-5.80 [facility] Specialist Comment on above: Performed By: #### C BCAD, MG, URIC, LIPD, PHOS, CMP, DBIL #### [facility] [address] [place], [place] [id number] RDW-SD 50.2 fL High 37.0-50.0 [place] [employer] Comment on above: Performed By: #### C BCAD, MG, URIC, LIPD, PHOS, CMP, DBIL #### [facility] [address] [place], [place] [id number] WBC (Bld) [#/Vol] 6.4 10*3/uL Normal 3.8-11.0 [place] [facility] [employer] Comment on above: Performed By: #### C BCAD, MG, URIC, LIPD, PHOS, CMP, DBIL #### [facility] [address] [place], [place] [id number] Comprehensive Metabolic Pane nitin 06-28-2021 Albumin [Mass/Vol] 4.9 g/dL Normal 3.6-5.1 [place] [facility] [facility] [employer] [facility] Comment on above: Performed By: #### C BCAD, MG, URIC, LIPD, PHOS, CMP, DBIL #### [facility] [address] [place], [place] [id number] Albumin/Globulin [Mass ratio] 3.3 {ratio} High 1.0-2.5 [facility] [employer] Comment on above: Performed By: #### C BCAD, MG, URIC, LIPD, PHOS, CMP, DBIL #### [facility] [address] [place], [place] [id number] ALP [Catalytic activity/Vol] 73 U/L Normal 40-129 [facility] [employer] Comment on above: Performed By: #### C BCAD, MG, URIC, LIPD, PHOS, CMP, DBIL #### [facility] [address] [place], [place] [id number] ALT [Catalytic activity/Vol] 26 U/L Normal 9-46 [facility] [employer] Comment on above: Result Comment: 03/17 Female reference range changed. Performed By: #### C BCAD, MG, URIC, LIPD, PHOS, CMP, DBIL #### [facility] [address] [place], [place] [id number] Anion gap [Moles/Vol] 16 mmol/L Normal 12-20 [facility] [employer] Comment on above: Result Comment: Effe ctive 04/22/2019 reference range changed. Performed By: #### C BCAD, MG, URIC, LIPD, PHOS, CMP, DBIL #### [facility] [address] [place], [place] [id number] AST [Catalytic activity/Vol] 23 U/L Normal 10-40 [facility] Comment on above: Performed By: #### C BCAD, MG, URIC, LIPD, PHOS, CMP, DBIL #### [facility] [address] [place], [place] [id number] Bilirubin [Mass/Vol] 0.76 mg/dL Normal 0.30-1.20 [facility] Specialist Comment on above: Performed By: #### C BCAD, MG, URIC, LIPD, PHOS, CMP, DBIL #### [facility] [address] [place], [place] [id number] BUN/CREA 15 Ratio Normal 6-22 [facility] Specialist Comment on above: Performed By: #### C BCAD, MG, URIC, LIPD, PHOS, CMP, DBIL #### [facility] [address] [place], [place] [id number] Calcium [Mass/Vol] 9.8 mg/dL Normal 8.6-10.2 [facility] Comment on above: Performed By: #### C BCAD, MG, URIC, LIPD, PHOS, CMP, DBIL #### [facility] [address] [place], [place] [id number] Chloride [Moles/Vol] 103 mmol/L Normal 98-107 [facility] Specialist Comment on above: Performed By: #### C BCAD, MG, URIC, LIPD, PHOS, CMP, DBIL #### [facility] [address] [place], [place] [id number] CO2 [Moles/Vol] 26 mmol/L Normal 20-31 [facility] Specialist Comment on above: Performed By: #### C BCAD, MG, URIC, LIPD, PHOS, CMP, DBIL #### [facility] [address] [place], [place] [id number] Creatinine [Mass/Vol] 1.1 mg/dL Normal 0.7-1.4 [facility] Specialist Comment on above: Performed By: #### C BCAD, MG, URIC, LIPD, PHOS, CMP, DBIL #### [facility] [address] [place], [place] [id number] eGFRAA 80 mL/min/1.73m2 Normal >60 [facility] [employer] Comment on above: Performed By: #### C BCAD, MG, URIC, LIPD, PHOS, CMP, DBIL #### [facility] [address] [place], [place] [id number] eGFRNAA 66 mL/min/1.73m2 Normal >60 [facility] [employer] Comment on above: Performed By: #### C BCAD, MG, URIC, LIPD, PHOS, CMP, DBIL #### [facility] [address] [place], [place] [id number] Globulin (S) [Mass/Vol] 1.5 g/dL Low 1.9-3.7 [facility] [employer] Comment on above: Performed By: #### C BCAD, MG, URIC, LIPD, PHOS, CMP, DBIL #### [facility] [address] [place], [place] [id number] Glucose [Mass/Vol] 130 mg/dL High 65-99 [place] [employer] Comment on above: Result Comment: For FASTING Glucose --- ADA reference ranges: Normal 65-99 mg/dl Prediabetes 100-125 Diabetes >/= 126 Performed By: #### C BCAD, MG, URIC, LIPD, PHOS, CMP, DBIL #### [facility] [address] [place], [place] [id number] Potassium [Moles/Vol] 4.6 mmol/L Normal 3.5-5.5 [facility] [employer] Comment on above: Performed By: #### C BCAD, MG, URIC, LIPD, PHOS, CMP, DBIL #### [facility] [address] [place], [place] [id number] Protein [Mass/Vol] 6.4 g/dL Normal 6.1-8.1 [place] [facility] [employer] Comment on above: Performed By: #### C BCAD, MG, URIC, LIPD, PHOS, CMP, DBIL #### [facility] [address] [place], [place] [id number] Sodium [Moles/Vol] 140 mmol/L Normal 135-146 [facility] Specialist Comment on above: Performed By: #### C BCAD, MG, URIC, LIPD, PHOS, CMP, DBIL #### [facility] [address] [place], [place] [id number] Urea nitrogen [Mass/Vol] 17 mg/dL Normal 7-25 [facility] Specialist Comment on above: Performed By: #### C BCAD, MG, URIC, LIPD, PHOS, CMP, DBIL #### [facility] [address] [place], [place] [id number] Lipid Panelon 06-28-2021 Cholesterol [Mass/Vol] 111 mg/dL Low 125-200 [facility] Specialist Comment on above: Result Comment: Low risk < 200mg/dL Borderline risk 201-239 mg/dl High risk > or equal to 240 Performed By: #### C BCAD, MG, URIC, LIPD, PHOS, CMP, DBIL #### [facility] [address] [place], [place] [id number] Cholesterol in HDL [Mass/Vol] 38 mg/dL Low >40 [facility] Specialist Comment on above: Result Comment: High Cardiovascular Risk HDL <40 mg/dL Low Cardiovascular Risk HDL > or equal to 60 mg/dl Performed By: #### C BCAD, MG, URIC, LIPD, PHOS, CMP, DBIL #### [facility] [address] [place], [place] [id number] Cholesterol in LDL [Mass/Vol] 47 mg/dL Normal [facility] Comment on above: Result Comment: LDL ATP III CLASSIFICATION LDL less than 100 mg/dl Optimal LDL 100-129 mg/dl Near or above optimal LDL 130-159 Borderline high LDL 160-189 High LDL greater than 189 mg/dl Very High Performed By: #### C BCAD, MG, URIC, LIPD, PHOS, CMP, DBIL #### [facility] [address] [place], [place] [id number] Cholesterol in VLDL [Mass/Vol] 26 mg/dL Normal [facility] Specialist Comment on above: Performed By: #### C BCAD, MG, URIC, LIPD, PHOS, CMP, DBIL #### [facility] [address] [place], [place] [id number] Cholesterol.total/C holesterol in HDL [Mass ratio] 3 {ratio} Normal [facility] [employer] Comment on above: Performed By: #### C BCAD, MG, URIC, LIPD, PHOS, CMP, DBIL #### [facility] [address] [place], [place] [id number] Triglyceride [Mass/Vol] 132 mg/dL Normal 30-150 [facility] [employer] Comment on above: Result Comment: TRIG ATPIII CLASSIFICATIONS TRIG less than 150 mg/dl Normal TRIG 150-199 mg/dl Borderline High TRIG 200-500 mg/dl High TRIG greather than 500 mg/dl Very High Performed By: #### C BCAD, MG, URIC, LIPD, PHOS, CMP, DBIL #### [facility] [address] [place], [place] [id number] Magnesiumon 06-28-2021 Magnesium [Mass/Vol] 1.7 mg/dL Normal 1.5-2.3 [facility] [employer] Comment on above: Performed By: #### C BCAD, MG, URIC, LIPD, PHOS, CMP, DBIL #### [facility] [address] [place], [place] [id number] Phosphoruson 06-28-2021 Phosphate [Mass/Vol] 3.7 mg/dL Normal 2.2-4.4 [facility] [employer] Comment on above: Performed By: #### C BCAD, MG, URIC, LIPD, PHOS, CMP, DBIL #### [facility] [address] [place], [place] [id number] Uric Acidon 06-28-2021 URIC 6.0 mg/dL Normal 4.0-8.0 [facility] [employer] Comment on above: Result Comment: Refe rence range change 03/03/2017. Prior reference range F 2.4-5.7mg/dL. M 3.4-7.0 mg/dL. Performed By: #### C BCAD, MG, URIC, LIPD, PHOS, CMP, DBIL #### [facility] [address] [place], [place] [id number] Pulmonary Functionon 022 Pulmonary Function MR #: [id number] [facility] PT. Name: Vsihal Duke Date: 06/02/2021 Date of : 1960 [...] Syed MD Date Trans: 06/06/2021 02:28 P/ [id number] cc: Rosa M Gonzales M.D. [address] [place] [address] [facility] [address] Normal [facility] Bilirubin, Directon 06-01-19 22 DBIL <0.2 Normal [facility] [employer] Comment on above: Result Comment: Refe rence range change 03/03/2017. Prior reference range 0.1-0.3 mg/dL. Performed By: #### C BCAD, MG, URIC, LIPD, PHOS, CMP, DBIL #### [facility] [address] [place], [place] [id number] Complete Blood Count with Au to Diffon 06-01-2021 Basophils (Bld) [#/Vol] 0.06 10*3/uL Normal 0.00-0.20 [facility] [employer] [facility] Comment on above: Performed By: #### C BCAD, MG, URIC, LIPD, PHOS, CMP, DBIL #### [facility] [address] [place], [place] [id number] Basophils/100 WBC (Bld) 0.9 % Normal [facility] Specialist Comment on above: Performed By: #### C BCAD, MG, URIC, LIPD, PHOS, CMP, DBIL #### [facility] [address] [place], [place] [id number] Eosinophils (Bld) [#/Vol] 0.12 10*3/uL Normal 0.02-0.50 [facility] Specialist Comment on above: Performed By: #### C BCAD, MG, URIC, LIPD, PHOS, CMP, DBIL #### [facility] [address] [place], [place] [id number] Eosinophils/100 WBC (Bld) 1.8 % Normal [facility] Specialist Comment on above: Performed By: #### C BCAD, MG, URIC, LIPD, PHOS, CMP, DBIL #### [facility] [address] [place], [place] [id number] Erythrocyte distribution width (RBC) [Ratio] 14.7 % Normal 11.0-15.0 [facility] Specialist Comment on above: Performed By: #### C BCAD, MG, URIC, LIPD, PHOS, CMP, DBIL #### [facility] [address] [place], [place] [id number] Hematocrit (Bld) [Volume fraction] 50.8 % High 38.5-50.0 [facility] Specialist Comment on above: Performed By: #### C BCAD, MG, URIC, LIPD, PHOS, CMP, DBIL #### [facility] [address] [place], [place] [id number] Hemoglobin (Bld) [Mass/Vol] 16.5 g/dL Normal 13.0-17.1 [facility] Comment on above: Performed By: #### C BCAD, MG, URIC, LIPD, PHOS, CMP, DBIL #### [facility] [address] [place], [place] [id number] Lymphocytes (Bld) [#/Vol] 1.1 10*3/uL Normal 0.9-3.9 [facility] Comment on above: Performed By: #### C BCAD, MG, URIC, LIPD, PHOS, CMP, DBIL #### [facility] [address] [place], [place] [id number] Lymphocytes/100 WBC (Bld) 16.1 % Normal [facility] Comment on above: Performed By: #### C BCAD, MG, URIC, LIPD, PHOS, CMP, DBIL #### [facility] [address] [place], [place] [id number] MCH (RBC) [Entitic mass] 29.8 pg Normal 27.0-33.0 [facility] Comment on above: Performed By: #### C BCAD, MG, URIC, LIPD, PHOS, CMP, DBIL #### [facility] [address] [place], [place] [id number] MCHC (RBC) [Mass/Vol] 32.5 g/dL Normal 32.0-36.0 [facility] Comment on above: Performed By: #### C BCAD, MG, URIC, LIPD, PHOS, CMP, DBIL #### [facility] [address] [place], [place] [id number] MCV (RBC) [Entitic vol] 92 fL Normal 80-100 [facility] Comment on above: Performed By: #### C BCAD, MG, URIC, LIPD, PHOS, CMP, DBIL #### [facility] [address] [place], [place] [id number] Monocytes (Bld) [#/Vol] 0.8 10*3/uL Normal 0.2-0.9 [facility] Comment on above: Performed By: #### C BCAD, MG, URIC, LIPD, PHOS, CMP, DBIL #### [facility] [address] [place], [place] [id number] Monocytes/100 WBC (Bld) 11.4 % Normal [facility] Comment on above: Performed By: #### C BCAD, MG, URIC, LIPD, PHOS, CMP, DBIL #### [facility] [address] [place], [place] [id number] Neutrophils (Bld) [#/Vol] 4.6 10*3/uL Normal 1.5-7.8 [facility] Comment on above: Performed By: #### C BCAD, MG, URIC, LIPD, PHOS, CMP, DBIL #### [facility] [address] [place], [place] [id number] Neutrophils/100 WBC (Bld) 69.2 % Normal [facility] Comment on above: Performed By: #### C BCAD, MG, URIC, LIPD, PHOS, CMP, DBIL #### [facility] [address] [place], [place] [id number] Platelet mean volume (Bld) [Entitic vol] 10.60 fL Normal 7.50-12.50 [facility] Comment on above: Performed By: #### C BCAD, MG, URIC, LIPD, PHOS, CMP, DBIL #### [facility] [address] [place], [place] [id number] Platelets (Bld) [#/Vol] 285 10*3/uL Normal 140-400 [facility] Comment on above: Performed By: #### C BCAD, MG, URIC, LIPD, PHOS, CMP, DBIL #### [facility] [address] [place], [place] [id number] RBC (Bld) [#/Vol] 5.53 10*6/uL Normal 4.20-5.80 [facility] Comment on above: Performed By: #### C BCAD, MG, URIC, LIPD, PHOS, CMP, DBIL #### [facility] [address] [place], [place] [id number] RDW-SD 49.8 fL Normal 37.0-50.0 [facility] Comment on above: Performed By: #### C BCAD, MG, URIC, LIPD, PHOS, CMP, DBIL #### [facility] [address] [place], [place] [id number] WBC (Bld) [#/Vol] 6.6 10*3/uL Normal 3.8-11.0 [facility] Comment on above: Performed By: #### C BCAD, MG, URIC, LIPD, PHOS, CMP, DBIL #### [facility] [address] [place], [place] [id number] Comprehensive Metabolic Pane nitin 06-01-2021 Albumin [Mass/Vol] 5.0 g/dL Normal 3.6-5.1 [facility] Comment on above: Performed By: #### C BCAD, MG, URIC, LIPD, PHOS, CMP, DBIL #### [facility] [address] [place], [place] [id number] Albumin/Globulin [Mass ratio] 2.6 {ratio} High 1.0-2.5 [facility] Comment on above: Performed By: #### C BCAD, MG, URIC, LIPD, PHOS, CMP, DBIL #### [facility] [address] [place], [place] [id number] ALP [Catalytic activity/Vol] 93 U/L Normal 40-129 [facility] Comment on above: Performed By: #### C BCAD, MG, URIC, LIPD, PHOS, CMP, DBIL #### [facility] [address] [place], [place] [id number] ALT [Catalytic activity/Vol] 30 U/L Normal 9-46 [facility] Comment on above: Result Comment: 03/17 Female reference range changed. Performed By: #### C BCAD, MG, URIC, LIPD, PHOS, CMP, DBIL #### [facility] [address] [place], [place] [id number] Anion gap [Moles/Vol] 21 mmol/L High 12-20 [facility] Comment on above: Result Comment: Effe ctive 04/22/2019 reference range changed. Performed By: #### C BCAD, MG, URIC, LIPD, PHOS, CMP, DBIL #### [facility] [address] [place], [place] [id number] AST [Catalytic activity/Vol] 26 U/L Normal 10-40 [facility] Comment on above: Performed By: #### C BCAD, MG, URIC, LIPD, PHOS, CMP, DBIL #### [facility] [address] [place], [place] [id number] Bilirubin [Mass/Vol] 0.72 mg/dL Normal 0.30-1.20 [facility] Comment on above: Performed By: #### C BCAD, MG, URIC, LIPD, PHOS, CMP, DBIL #### [facility] [address] [place], [place] [id number] BUN/CREA 15 Ratio Normal 6-22 [facility] Comment on above: Performed By: #### C BCAD, MG, URIC, LIPD, PHOS, CMP, DBIL #### [facility] [address] [place], [place] [id number] Calcium [Mass/Vol] 10.4 mg/dL High 8.6-10.2 [facility] Comment on above: Performed By: #### C BCAD, MG, URIC, LIPD, PHOS, CMP, DBIL #### [facility] [address] [place], [place] [id number] Chloride [Moles/Vol] 104 mmol/L Normal 98-107 [facility] Comment on above: Performed By: #### C BCAD, MG, URIC, LIPD, PHOS, CMP, DBIL #### [facility] [address] [place], [place] [id number] CO2 [Moles/Vol] 24 mmol/L Normal 20-31 [facility] Comment on above: Performed By: #### C BCAD, MG, URIC, LIPD, PHOS, CMP, DBIL #### [facility] [address] [place], [place] [id number] Creatinine [Mass/Vol] 1.2 mg/dL Normal 0.7-1.4 [facility] Comment on above: Performed By: #### C BCAD, MG, URIC, LIPD, PHOS, CMP, DBIL #### [facility] [address] [place], [place] [id number] eGFRAA 79 mL/min/1.73m2 Normal >60 [facility] Comment on above: Performed By: #### C BCAD, MG, URIC, LIPD, PHOS, CMP, DBIL #### [facility] [address] [place], [place] [id number] eGFRNAA 65 mL/min/1.73m2 Normal >60 [facility] Comment on above: Performed By: #### C BCAD, MG, URIC, LIPD, PHOS, CMP, DBIL #### [facility] [address] [place], [place] [id number] Globulin (S) [Mass/Vol] 1.9 g/dL Normal 1.9-3.7 [facility] Comment on above: Performed By: #### C BCAD, MG, URIC, LIPD, PHOS, CMP, DBIL #### [facility] [address] [place], [place] [id number] Glucose [Mass/Vol] 108 mg/dL High 65-99 [facility] [place] [facility] Comment on above: Result Comment: For FASTING Glucose --- ADA reference ranges: Normal 65-99 mg/dl Prediabetes 100-125 Diabetes >/= 126 Performed By: #### C BCAD, MG, URIC, LIPD, PHOS, CMP, DBIL #### [facility] [address] [place], [place] [id number] Potassium [Moles/Vol] 5.0 mmol/L Normal 3.5-5.5 [facility] Comment on above: Performed By: #### C BCAD, MG, URIC, LIPD, PHOS, CMP, DBIL #### [facility] [address] [place], [place] [id number] Protein [Mass/Vol] 6.9 g/dL Normal 6.1-8.1 [facility] [place] [facility] Comment on above: Performed By: #### C BCAD, MG, URIC, LIPD, PHOS, CMP, DBIL #### [facility] [address] [place], [place] [id number] Sodium [Moles/Vol] 143 mmol/L Normal 135-146 [facility] [place] [facility] Comment on above: Performed By: #### C BCAD, MG, URIC, LIPD, PHOS, CMP, DBIL #### [facility] [address] [place], [place] [id number] Urea nitrogen [Mass/Vol] 17 mg/dL Normal 7-25 [facility] Comment on above: Performed By: #### C BCAD, MG, URIC, LIPD, PHOS, CMP, DBIL #### [facility] [address] [place], [place] [id number] Hemoglobin A1Con 06-01-2021 EAG 139.85 Normal [facility] Comment on above: Performed By: #### A 1C #### [facility] [address] [place], [place] [id number] HbA1c (Bld) [Mass fraction] 6.5 % High 4.0-6.0 [facility] Comment on above: Performed By: #### A 1C #### [facility] [address] [place], [place] [id number] Lipid Panelon 06-01-2021 Cholesterol [Mass/Vol] 129 mg/dL Normal 125-200 [facility] Comment on above: Result Comment: Low risk < 200mg/dL Borderline risk 201-239 mg/dl High risk > or equal to 240 Performed By: #### C BCAD, MG, URIC, LIPD, PHOS, CMP, DBIL #### [facility] [address] [place], [place] [id number] Cholesterol in HDL [Mass/Vol] 44 mg/dL Normal >40 [facility] Comment on above: Result Comment: High Cardiovascular Risk HDL <40 mg/dL Low Cardiovascular Risk HDL > or equal to 60 mg/dl Performed By: #### C BCAD, MG, URIC, LIPD, PHOS, CMP, DBIL #### [facility] [address] [place], [place] [id number] Cholesterol in LDL [Mass/Vol] 61 mg/dL Normal [facility] Comment on above: Result Comment: LDL ATP III CLASSIFICATION LDL less than 100 mg/dl Optimal LDL 100-129 mg/dl Near or above optimal LDL 130-159 Borderline high LDL 160-189 High LDL greater than 189 mg/dl Very High Performed By: #### C BCAD, MG, URIC, LIPD, PHOS, CMP, DBIL #### [facility] [address] [place], [place] [id number] Cholesterol in VLDL [Mass/Vol] 24 mg/dL Normal [facility] Comment on above: Performed By: #### C BCAD, MG, URIC, LIPD, PHOS, CMP, DBIL #### [facility] [address] [place], [place] [id number] Cholesterol.total/C holesterol in HDL [Mass ratio] 3 {ratio} Normal [facility] Comment on above: Performed By: #### C BCAD, MG, URIC, LIPD, PHOS, CMP, DBIL #### [facility] [address] [place], [place] [id number] Triglyceride [Mass/Vol] 119 mg/dL Normal 30-150 [facility] Comment on above: Result Comment: TRIG ATPIII CLASSIFICATIONS TRIG less than 150 mg/dl Normal TRIG 150-199 mg/dl Borderline High TRIG 200-500 mg/dl High TRIG greather than 500 mg/dl Very High Performed By: #### C BCAD, MG, URIC, LIPD, PHOS, CMP, DBIL #### [facility] [address] [place], [place] [id number] Magnesiumon 06-01-2021 Magnesium [Mass/Vol] 1.8 mg/dL Normal 1.5-2.3 [facility] Comment on above: Performed By: #### C BCAD, MG, URIC, LIPD, PHOS, CMP, DBIL #### [facility] [address] [place], [place] [id number] Phosphoruson 06-01-2021 Phosphate [Mass/Vol] 4.3 mg/dL Normal 2.2-4.4 [facility] Comment on above: Performed By: #### C BCAD, MG, URIC, LIPD, PHOS, CMP, DBIL #### [facility] [address] [place], [place] [id number] Uric Acidon 06-01-2021 URIC 6.1 mg/dL Normal 4.0-8.0 [facility] Comment on above: Result Comment: Refe rence range change 03/03/2017. Prior reference range F 2.4-5.7mg/dL. M 3.4-7.0 mg/dL. Performed By: #### C BCAD, MG, URIC, LIPD, PHOS, CMP, DBIL #### [facility] [address] [place], [place] [id number] Bilirubin, Directon 04-30-19 22 DBIL <0.2 Normal [facility] Comment on above: Result Comment: Refe rence range change 03/03/2017. Prior reference range 0.1-0.3 mg/dL. Performed By: #### C BCAD, MG, URIC, LIPD, PHOS, CMP, DBIL #### [facility] [address] [place], [place] [id number] Complete Blood Count with Au to Diffon 04-30-2021 Basophils (Bld) [#/Vol] 0.07 10*3/uL Normal 0.00-0.20 [facility] Comment on above: Performed By: #### C BCAD, MG, URIC, LIPD, PHOS, CMP, DBIL #### [facility] [address] [place], [place] [id number] Basophils/100 WBC (Bld) 1.1 % Normal [facility] Comment on above: Performed By: #### C BCAD, MG, URIC, LIPD, PHOS, CMP, DBIL #### [facility] [address] [place], [place] [id number] Eosinophils (Bld) [#/Vol] 0.12 10*3/uL Normal 0.02-0.50 [facility] Comment on above: Performed By: #### C BCAD, MG, URIC, LIPD, PHOS, CMP, DBIL #### [facility] [address] [place], [place] [id number] Eosinophils/100 WBC (Bld) 1.8 % Normal [facility] Comment on above: Performed By: #### C BCAD, MG, URIC, LIPD, PHOS, CMP, DBIL #### [facility] [address] [place], [place] [id number] Erythrocyte distribution width (RBC) [Ratio] 14.7 % Normal 11.0-15.0 [facility] Comment on above: Performed By: #### C BCAD, MG, URIC, LIPD, PHOS, CMP, DBIL #### [facility] [address] [place], [place] [id number] Hematocrit (Bld) [Volume fraction] 50.5 % High 38.5-50.0 [facility] Comment on above: Performed By: #### C BCAD, MG, URIC, LIPD, PHOS, CMP, DBIL #### [facility] [address] [place], [place] [id number] Hemoglobin (Bld) [Mass/Vol] 16.4 g/dL Normal 13.0-17.1 [facility] Comment on above: Performed By: #### C BCAD, MG, URIC, LIPD, PHOS, CMP, DBIL #### [facility] [address] [place], [place] [id number] Lymphocytes (Bld) [#/Vol] 1.0 10*3/uL Normal 0.9-3.9 [facility] Comment on above: Performed By: #### C BCAD, MG, URIC, LIPD, PHOS, CMP, DBIL #### [facility] [address] [place], [place] [id number] Lymphocytes/100 WBC (Bld) 14.7 % Normal [facility] Comment on above: Performed By: #### C BCAD, MG, URIC, LIPD, PHOS, CMP, DBIL #### [facility] [address] [place], [place] [id number] MCH (RBC) [Entitic mass] 29.4 pg Normal 27.0-33.0 [facility] Comment on above: Performed By: #### C BCAD, MG, URIC, LIPD, PHOS, CMP, DBIL #### [facility] [address] [place], [place] [id number] MCHC (RBC) [Mass/Vol] 32.5 g/dL Normal 32.0-36.0 [facility] Comment on above: Performed By: #### C BCAD, MG, URIC, LIPD, PHOS, CMP, DBIL #### [facility] [address] [place], [place] [id number] MCV (RBC) [Entitic vol] 91 fL Normal 80-100 [facility] Comment on above: Performed By: #### C BCAD, MG, URIC, LIPD, PHOS, CMP, DBIL #### [facility] [address] [place], [place] [id number] Monocytes (Bld) [#/Vol] 0.7 10*3/uL Normal 0.2-0.9 [place] [facility] Comment on above: Performed By: #### C BCAD, MG, URIC, LIPD, PHOS, CMP, DBIL #### [facility] [address] [place], [place] [id number] Monocytes/100 WBC (Bld) 10.4 % Normal [facility] Comment on above: Performed By: #### C BCAD, MG, URIC, LIPD, PHOS, CMP, DBIL #### [facility] [address] [place], [place] [id number] Neutrophils (Bld) [#/Vol] 4.7 10*3/uL Normal 1.5-7.8 [facility] Comment on above: Performed By: #### C BCAD, MG, URIC, LIPD, PHOS, CMP, DBIL #### [facility] [address] [place], [place] [id number] Neutrophils/100 WBC (Bld) 71.4 % Normal [facility] Comment on above: Performed By: #### C BCAD, MG, URIC, LIPD, PHOS, CMP, DBIL #### [facility] [address] [place], [place] [id number] Platelet mean volume (Bld) [Entitic vol] 10.70 fL Normal 7.50-12.50 [facility] Comment on above: Performed By: #### C BCAD, MG, URIC, LIPD, PHOS, CMP, DBIL #### [facility] [address] [place], [place] [id number] Platelets (Bld) [#/Vol] 261 10*3/uL Normal 140-400 [facility] Comment on above: Performed By: #### C BCAD, MG, URIC, LIPD, PHOS, CMP, DBIL #### [facility] [address] [place], [place] [id number] RBC (Bld) [#/Vol] 5.57 10*6/uL Normal 4.20-5.80 [facility] Comment on above: Performed By: #### C BCAD, MG, URIC, LIPD, PHOS, CMP, DBIL #### [facility] [address] [place], [place] [id number] RDW-SD 49.2 fL Normal 37.0-50.0 [facility] Comment on above: Performed By: #### C BCAD, MG, URIC, LIPD, PHOS, CMP, DBIL #### [facility] [address] [place], [place] [id number] WBC (Bld) [#/Vol] 6.6 10*3/uL Normal 3.8-11.0 [facility] [place] [facility] Comment on above: Performed By: #### C BCAD, MG, URIC, LIPD, PHOS, CMP, DBIL #### [facility] [address] [place], [place] [id number] Comprehensive Metabolic Pane nitin 04-30-2021 Albumin [Mass/Vol] 4.9 g/dL Normal 3.6-5.1 [facility] [place] [facility] Comment on above: Performed By: #### C BCAD, MG, URIC, LIPD, PHOS, CMP, DBIL #### [facility] [address] [place], [place] [id number] Albumin/Globulin [Mass ratio] 2.6 {ratio} High 1.0-2.5 [facility] Comment on above: Performed By: #### C BCAD, MG, URIC, LIPD, PHOS, CMP, DBIL #### [facility] [address] [place], [place] [id number] ALP [Catalytic activity/Vol] 89 U/L Normal 40-129 [facility] Comment on above: Performed By: #### C BCAD, MG, URIC, LIPD, PHOS, CMP, DBIL #### [facility] [address] [place], [place] [id number] ALT [Catalytic activity/Vol] 30 U/L Normal 9-46 [facility] Comment on above: Result Comment: 03/17 Female reference range changed. Performed By: #### C BCAD, MG, URIC, LIPD, PHOS, CMP, DBIL #### [facility] [address] [place], [place] [id number] Anion gap [Moles/Vol] 20 mmol/L Normal 12-20 [facility] Comment on above: Result Comment: Effe ctive 04/22/2019 reference range changed. Performed By: #### C BCAD, MG, URIC, LIPD, PHOS, CMP, DBIL #### [facility] [address] [place], [place] [id number] AST [Catalytic activity/Vol] 23 U/L Normal 10-40 [facility] Comment on above: Performed By: #### C BCAD, MG, URIC, LIPD, PHOS, CMP, DBIL #### [facility] [address] [place], [place] [id number] Bilirubin [Mass/Vol] 0.52 mg/dL Normal 0.30-1.20 [facility] Comment on above: Performed By: #### C BCAD, MG, URIC, LIPD, PHOS, CMP, DBIL #### [facility] [address] [place], [place] [id number] BUN/CREA 18 Ratio Normal 6-22 [facility] Comment on above: Performed By: #### C BCAD, MG, URIC, LIPD, PHOS, CMP, DBIL #### [facility] [address] [place], [place] [id number] Calcium [Mass/Vol] 10.1 mg/dL Normal 8.6-10.2 [facility] Comment on above: Performed By: #### C BCAD, MG, URIC, LIPD, PHOS, CMP, DBIL #### [facility] [address] [place], [place] [id number] Chloride [Moles/Vol] 102 mmol/L Normal 98-107 [facility] Comment on above: Performed By: #### C BCAD, MG, URIC, LIPD, PHOS, CMP, DBIL #### [facility] [address] [place], [place] [id number] CO2 [Moles/Vol] 23 mmol/L Normal 20-31 [facility] Comment on above: Performed By: #### C BCAD, MG, URIC, LIPD, PHOS, CMP, DBIL #### [facility] [address] [place], [place] [id number] Creatinine [Mass/Vol] 1.3 mg/dL Normal 0.7-1.4 [facility] Comment on above: Performed By: #### C BCAD, MG, URIC, LIPD, PHOS, CMP, DBIL #### [facility] [address] [place], [place] [id number] eGFRAA 71 mL/min/1.73m2 Normal >60 [facility] Comment on above: Performed By: #### C BCAD, MG, URIC, LIPD, PHOS, CMP, DBIL #### [facility] [address] [place], [place] [id number] eGFRNAA 59 mL/min/1.73m2 Low >60 [place] [facility] Comment on above: Performed By: #### C BCAD, MG, URIC, LIPD, PHOS, CMP, DBIL #### [facility] [address] [place], [place] [id number] Globulin (S) [Mass/Vol] 1.9 g/dL Normal 1.9-3.7 [facility] Comment on above: Performed By: #### C BCAD, MG, URIC, LIPD, PHOS, CMP, DBIL #### [facility] [address] [place], [place] [id number] Glucose [Mass/Vol] 128 mg/dL High 65-99 [facility] [place] [facility] Comment on above: Result Comment: For FASTING Glucose --- ADA reference ranges: Normal 65-99 mg/dl Prediabetes 100-125 Diabetes >/= 126 Performed By: #### C BCAD, MG, URIC, LIPD, PHOS, CMP, DBIL #### [facility] [address] [place], [place] [id number] Potassium [Moles/Vol] 4.4 mmol/L Normal 3.5-5.5 [facility] Comment on above: Performed By: #### C BCAD, MG, URIC, LIPD, PHOS, CMP, DBIL #### [facility] [address] [place], [place] [id number] Protein [Mass/Vol] 6.8 g/dL Normal 6.1-8.1 [facility] [place] [facility] Comment on above: Performed By: #### C BCAD, MG, URIC, LIPD, PHOS, CMP, DBIL #### [facility] [address] [place], [place] [id number] Sodium [Moles/Vol] 140 mmol/L Normal 135-146 [facility] Comment on above: Performed By: #### C BCAD, MG, URIC, LIPD, PHOS, CMP, DBIL #### [facility] [address] [place], [place] [id number] Urea nitrogen [Mass/Vol] 23 mg/dL Normal 7-25 [facility] Comment on above: Performed By: #### C BCAD, MG, URIC, LIPD, PHOS, CMP, DBIL #### [facility] [address] [place], [place] [id number] Lipid Panelon 04-30-2021 Cholesterol [Mass/Vol] 123 mg/dL Low 125-200 [facility] Comment on above: Result Comment: Low risk < 200mg/dL Borderline risk 201-239 mg/dl High risk > or equal to 240 Performed By: #### C BCAD, MG, URIC, LIPD, PHOS, CMP, DBIL #### [facility] [address] [place], [place] [id number] Cholesterol in HDL [Mass/Vol] 41 mg/dL Normal >40 [facility] Comment on above: Result Comment: High Cardiovascular Risk HDL <40 mg/dL Low Cardiovascular Risk HDL > or equal to 60 mg/dl Performed By: #### C BCAD, MG, URIC, LIPD, PHOS, CMP, DBIL #### [facility] [address] [place], [place] [id number] Cholesterol in LDL [Mass/Vol] 51 mg/dL Normal [facility] Comment on above: Result Comment: LDL ATP III CLASSIFICATION LDL less than 100 mg/dl Optimal LDL 100-129 mg/dl Near or above optimal LDL 130-159 Borderline high LDL 160-189 High LDL greater than 189 mg/dl Very High Performed By: #### C BCAD, MG, URIC, LIPD, PHOS, CMP, DBIL #### [facility] [address] [place], [place] [id number] Cholesterol in VLDL [Mass/Vol] 31 mg/dL Normal [facility] Comment on above: Performed By: #### C BCAD, MG, URIC, LIPD, PHOS, CMP, DBIL #### [facility] [address] [place], [place] [id number] Cholesterol.total/C holesterol in HDL [Mass ratio] 3 {ratio} Normal [facility] Comment on above: Performed By: #### C BCAD, MG, URIC, LIPD, PHOS, CMP, DBIL #### [facility] [address] [place], [place] [id number] Triglyceride [Mass/Vol] 156 mg/dL High 30-150 [facility] Comment on above: Result Comment: TRIG ATPIII CLASSIFICATIONS TRIG less than 150 mg/dl Normal TRIG 150-199 mg/dl Borderline High TRIG 200-500 mg/dl High TRIG greather than 500 mg/dl Very High Performed By: #### C BCAD, MG, URIC, LIPD, PHOS, CMP, DBIL #### [facility] [address] [place], [place] [id number] Magnesiumon 04-30-2021 Magnesium [Mass/Vol] 2.0 mg/dL Normal 1.5-2.3 [facility] Comment on above: Performed By: #### C BCAD, MG, URIC, LIPD, PHOS, CMP, DBIL #### [facility] [address] [place], [place] [id number] Phosphoruson 04-30-2021 Phosphate [Mass/Vol] 4.2 mg/dL Normal 2.2-4.4 [facility] Comment on above: Performed By: #### C BCAD, MG, URIC, LIPD, PHOS, CMP, DBIL #### [facility] [address] [place], [place] [id number] Uric Acidon 04-30-2021 URIC 5.3 mg/dL Normal 4.0-8.0 [facility] Comment on above: Result Comment: Refe rence range change 03/03/2017. Prior reference range F 2.4-5.7mg/dL. M 3.4-7.0 mg/dL. 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 History of Present [...] he saw his regular Gunn by his medart operator to agreed with and endorsed the care we rendered. The device was interrogated it in their office and it appears to be functioning appropriately. Because of all the above he is pleased with his care. He'll be following up henceforth with the Gunn medart operator and we advised him were always happy [...] transplantation History of Pacemaker insertion History of Noble tooth extraction Current Meds Medication NameInstruction Aspirin [...] Vital Signs Recorded: 23Apr2021 05:40PMRecorded: 23Apr2021 03:22PM [id number], RUE, Gfgnctu972, RUE, Sitting Kaxrxuvom31, RUE, Lhklxpe16, RUE, Sitting Heart Rate61, R Brachial Artery Height5 ft 11 in Mjuzae934 lb BMI Kpykxwutos64.57 kg/m2 BSA Calculated2.16 Tobacco Useb) No Fall [...] abdomen non-tender (more content not included)... Normal [facility] Tobacco Screening.on 022 Fall risk assessment c) Not medically indicated -[facility] y [address] DO Work Phone: Tobacco use status [facility] b) No -[facility] y [address] DO Work Phone: Bilirubin, Directon 03-29-20 21 DBIL <0.2 Normal [facility] Comment on above: Result Comment: Refe rence range change 03/03/2017. Prior reference range 0.1-0.3 mg/dL. Performed By: #### C BCAD, MG, URIC, LIPD, PHOS, CMP, DBIL #### [facility] [address] [place], [place] [id number] Complete Blood Count with Au to [facility] 03-29-2021 Basophils (Bld) [#/Vol] 0.06 10*3/uL Normal 0.00-0.20 [facility] [employer] Comment on above: Performed By: #### C BCAD, MG, URIC, LIPD, PHOS, CMP, DBIL #### [facility] [address] [place], [place] [id number] Basophils/100 WBC (Bld) 0.7 % Normal [facility] [employer] Comment on above: Performed By: #### C BCAD, MG, URIC, LIPD, PHOS, CMP, DBIL #### [facility] [address] [place], [place] [id number] Eosinophils (Bld) [#/Vol] 0.13 10*3/uL Normal 0.02-0.50 [facility] [employer] Comment on above: Performed By: #### C BCAD, MG, URIC, LIPD, PHOS, CMP, DBIL #### [facility] [address] [place], [place] [id number] Eosinophils/100 WBC (Bld) 1.6 % Normal [facility] Comment on above: Performed By: #### C BCAD, MG, URIC, LIPD, PHOS, CMP, DBIL #### [facility] [address] [place], [place] [id number] Erythrocyte distribution width (RBC) [Ratio] 14.9 % Normal 11.0-15.0 [facility] Comment on above: Performed By: #### C BCAD, MG, URIC, LIPD, PHOS, CMP, DBIL #### [facility] [address] [place], [place] [id number] Hematocrit (Bld) [Volume fraction] 51.2 % High 38.5-50.0 [facility] Comment on above: Performed By: #### C BCAD, MG, URIC, LIPD, PHOS, CMP, DBIL #### [facility] [address] [place], [place] [id number] Hemoglobin (Bld) [Mass/Vol] 16.0 g/dL Normal 13.0-17.1 [facility] Comment on above: Performed By: #### C BCAD, MG, URIC, LIPD, PHOS, CMP, DBIL #### [facility] [address] [place], [place] [id number] Lymphocytes (Bld) [#/Vol] 0.9 10*3/uL Normal 0.9-3.9 [facility] Comment on above: Performed By: #### C BCAD, MG, URIC, LIPD, PHOS, CMP, DBIL #### [facility] [address] [place], [place] [id number] Lymphocytes/100 WBC (Bld) 10.7 % Normal [facility] Comment on above: Performed By: #### C BCAD, MG, URIC, LIPD, PHOS, CMP, DBIL #### [facility] [address] [place], [place] [id number] MCH (RBC) [Entitic mass] 28.9 pg Normal 27.0-33.0 [facility] Comment on above: Performed By: #### C BCAD, MG, URIC, LIPD, PHOS, CMP, DBIL #### [facility] [address] [place], [place] [id number] MCHC (RBC) [Mass/Vol] 31.3 g/dL Low 32.0-36.0 [facility] Comment on above: Performed By: #### C BCAD, MG, URIC, LIPD, PHOS, CMP, DBIL #### [facility] [address] [place], [place] [id number] MCV (RBC) [Entitic vol] 92 fL Normal 80-100 [facility] Comment on above: Performed By: #### C BCAD, MG, URIC, LIPD, PHOS, CMP, DBIL #### [facility] [address] [place], [place] [id number] Monocytes (Bld) [#/Vol] 0.7 10*3/uL Normal 0.2-0.9 [facility] Comment on above: Performed By: #### C BCAD, MG, URIC, LIPD, PHOS, CMP, DBIL #### [facility] [address] [place], [place] [id number] Monocytes/100 WBC (Bld) 8.1 % Normal [facility] Comment on above: Performed By: #### C BCAD, MG, URIC, LIPD, PHOS, CMP, DBIL #### [facility] [address] [place], [place] [id number] Neutrophils (Bld) [#/Vol] 6.4 10*3/uL Normal 1.5-7.8 [facility] Comment on above: Performed By: #### C BCAD, MG, URIC, LIPD, PHOS, CMP, DBIL #### [facility] [address] [place], [place] [id number] Neutrophils/100 WBC (Bld) 78.5 % Normal [facility] Comment on above: Performed By: #### C BCAD, MG, URIC, LIPD, PHOS, CMP, DBIL #### [facility] [address] [place], [place] [id number] Platelet mean volume (Bld) [Entitic vol] 11.20 fL Normal 7.50-12.50 [facility] Comment on above: Performed By: #### C BCAD, MG, URIC, LIPD, PHOS, CMP, DBIL #### [facility] [address] [place], [place] [id number] Platelets (Bld) [#/Vol] 295 10*3/uL Normal 140-400 [facility] Comment on above: Performed By: #### C BCAD, MG, URIC, LIPD, PHOS, CMP, DBIL #### [facility] [address] [place], [place] [id number] RBC (Bld) [#/Vol] 5.54 10*6/uL Normal 4.20-5.80 [facility] Specialist Comment on above: Performed By: #### C BCAD, MG, URIC, LIPD, PHOS, CMP, DBIL #### [facility] [address] [place], [place] [id number] RDW-SD 51.0 fL High 37.0-50.0 [facility] Comment on above: Performed By: #### C BCAD, MG, URIC, LIPD, PHOS, CMP, DBIL #### [facility] [address] [place], [place] [id number] WBC (Bld) [#/Vol] 8.2 10*3/uL Normal 3.8-11.0 [facility] Comment on above: Performed By: #### C BCAD, MG, URIC, LIPD, PHOS, CMP, DBIL #### [facility] [address] [place], [place] [id number] Comprehensive Metabolic Pane [facility] 03-29-2021 Albumin [Mass/Vol] 4.9 g/dL Normal 3.6-5.1 [place] [facility] Comment on above: Performed By: #### C BCAD, MG, URIC, LIPD, PHOS, CMP, DBIL #### [facility] [address] [place], [place] [id number] Albumin/Globulin [Mass ratio] 2.5 {ratio} Normal 1.0-2.5 [facility] Comment on above: Performed By: #### C BCAD, MG, URIC, LIPD, PHOS, CMP, DBIL #### [facility] [address] [place], [place] [id number] ALP [Catalytic activity/Vol] 86 U/L Normal 40-129 [facility] Comment on above: Performed By: #### C BCAD, MG, URIC, LIPD, PHOS, CMP, DBIL #### [facility] [address] [place], [place] [id number] ALT [Catalytic activity/Vol] 33 U/L Normal 9-46 [facility] Comment on above: Result Comment: 03/17 Female reference range changed. Performed By: #### C BCAD, MG, URIC, LIPD, PHOS, CMP, DBIL #### [facility] [address] [place], [place] [id number] Anion gap [Moles/Vol] 18 mmol/L Normal 12-20 [facility] Comment on above: Result Comment: Effe ctive 04/22/2019 reference range changed. Performed By: #### C BCAD, MG, URIC, LIPD, PHOS, CMP, DBIL #### [facility] [address] [place], [place] [id number] AST [Catalytic activity/Vol] 27 U/L Normal 10-40 [facility] Comment on above: Performed By: #### C BCAD, MG, URIC, LIPD, PHOS, CMP, DBIL #### [facility] [address] [place], [place] [id number] Bilirubin [Mass/Vol] 0.38 mg/dL Normal 0.30-1.20 [facility] Comment on above: Performed By: #### C BCAD, MG, URIC, LIPD, PHOS, CMP, DBIL #### [facility] [address] [place], [place] [id number] BUN/CREA 12 Ratio Normal 6-22 [facility] Comment on above: Performed By: #### C BCAD, MG, URIC, LIPD, PHOS, CMP, DBIL #### [facility] [address] [place], [place] [id number] Calcium [Mass/Vol] 10.3 mg/dL High 8.6-10.2 [facility] Comment on above: Performed By: #### C BCAD, MG, URIC, LIPD, PHOS, CMP, DBIL #### [facility] [address] [place], [place] [id number] Chloride [Moles/Vol] 105 mmol/L Normal 98-107 [facility] Comment on above: Performed By: #### C BCAD, MG, URIC, LIPD, PHOS, CMP, DBIL #### [facility] [address] [place], [place] [id number] CO2 [Moles/Vol] 23 mmol/L Normal 20-31 [facility] Comment on above: Performed By: #### C BCAD, MG, URIC, LIPD, PHOS, CMP, DBIL #### [facility] [address] [place], [place] [id number] Creatinine [Mass/Vol] 1.2 mg/dL Normal 0.7-1.4 [facility] Comment on above: Performed By: #### C BCAD, MG, URIC, LIPD, PHOS, CMP, DBIL #### [facility] [address] [place], [place] [id number] eGFRAA 79 mL/min/1.73m2 Normal >60 [facility] Comment on above: Performed By: #### C BCAD, MG, URIC, LIPD, PHOS, CMP, DBIL #### [facility] [address] [place], [place] [id number] eGFRNAA 65 mL/min/1.73m2 Normal >60 [facility] Comment on above: Performed By: #### C BCAD, MG, URIC, LIPD, PHOS, CMP, DBIL #### [facility] [address] [place], [place] [id number] Globulin (S) [Mass/Vol] 2.0 g/dL Normal 1.9-3.7 [facility] Comment on above: Performed By: #### C BCAD, MG, URIC, LIPD, PHOS, CMP, DBIL #### [facility] [address] [place], [place] [id number] Glucose [Mass/Vol] 125 mg/dL High 65-99 [facility] Comment on above: Result Comment: For FASTING Glucose --- ADA reference ranges: Normal 65-99 mg/dl Prediabetes 100-125 Diabetes >/= 126 Performed By: #### C BCAD, MG, URIC, LIPD, PHOS, CMP, DBIL #### [facility] [address] [place], [place] [id number] Potassium [Moles/Vol] 4.7 mmol/L Normal 3.5-5.5 [facility] Comment on above: Performed By: #### C BCAD, MG, URIC, LIPD, PHOS, CMP, DBIL #### [facility] [address] [place], [place] [id number] Protein [Mass/Vol] 6.9 g/dL Normal 6.1-8.1 [facility] [facility] Comment on above: Performed By: #### C BCAD, MG, URIC, LIPD, PHOS, CMP, DBIL #### [facility] [address] [place], [place] [id number] Sodium [Moles/Vol] 141 mmol/L Normal 135-146 [facility] Comment on above: Performed By: #### C BCAD, MG, URIC, LIPD, PHOS, CMP, DBIL #### [facility] [address] [place], [place] [id number] Urea nitrogen [Mass/Vol] 14 mg/dL Normal 7-25 [facility] Comment on above: Performed By: #### C BCAD, MG, URIC, LIPD, PHOS, CMP, DBIL #### [facility] [address] [place], [place] [id number] Lipid Panelon 03-29-2021 Cholesterol [Mass/Vol] 123 mg/dL Low 125-200 [facility] Comment on above: Result Comment: Low risk < 200mg/dL Borderline risk 201-239 mg/dl High risk > or equal to 240 Performed By: #### C BCAD, MG, URIC, LIPD, PHOS, CMP, DBIL #### [facility] [address] [place], [place] [id number] Cholesterol in HDL [Mass/Vol] 42 mg/dL Normal >40 [facility] Comment on above: Result Comment: High Cardiovascular Risk HDL <40 mg/dL Low Cardiovascular Risk HDL > or equal to 60 mg/dl Performed By: #### C BCAD, MG, URIC, LIPD, PHOS, CMP, DBIL #### [facility] [address] [facility] [place] [id number] Cholesterol in LDL [Mass/Vol] 58 mg/dL Normal [facility] Comment on above: Result Comment: LDL ATP III CLASSIFICATION LDL less than 100 mg/dl Optimal LDL 100-129 mg/dl Near or above optimal LDL 130-159 Borderline high LDL 160-189 High LDL greater than 189 mg/dl Very High Performed By: #### C BCAD, MG, URIC, LIPD, PHOS, CMP, DBIL #### [facility] [address] [facility] [place] [id number] Cholesterol in VLDL [Mass/Vol] 23 mg/dL Normal [facility] Comment on above: Performed By: #### C BCAD, MG, URIC, LIPD, PHOS, CMP, DBIL #### [facility] [address] [place] [id number] Cholesterol.total/C holesterol in HDL [Mass ratio] 3 {ratio} Normal [facility] Comment on above: Performed By: #### C BCAD, MG, URIC, LIPD, PHOS, CMP, DBIL #### [facility] [address] [place], [place] [id number] Triglyceride [Mass/Vol] 113 mg/dL Normal 30-150 [facility] Comment on above: Result Comment: TRIG ATPIII CLASSIFICATIONS TRIG less than 150 mg/dl Normal TRIG 150-199 mg/dl Borderline High TRIG 200-500 mg/dl High TRIG greather than 500 mg/dl Very High Performed By: #### C BCAD, MG, URIC, LIPD, PHOS, CMP, DBIL #### [facility] [address] [place], [place] [id number] Magnesiumon 03-29-2021 Magnesium [Mass/Vol] 1.9 mg/dL Normal 1.5-2.3 [facility] Comment on above: Performed By: #### C BCAD, MG, URIC, LIPD, PHOS, CMP, DBIL #### [facility] [address] [facility] [place] [place] [id number] Phosphoruson 12-13-2021 Phosphate [Mass/Vol] 4.1 mg/dL Normal 2.2-4.4 [facility] Comment on above: Performed By: #### C BCAD, MG, URIC, LIPD, PHOS, CMP, DBIL #### [facility] [address] [place], [place] [id number] Uric Acidon 03-29-2021 URIC 7.5 mg/dL Normal 4.0-8.0 [facility] Comment on above: Result Comment: Refe rence range change 03/03/2017. Prior reference range F 2.4-5.7mg/dL. M 3.4-7.0 mg/dL. Performed By: #### C BCAD, MG, URIC, LIPD, PHOS, CMP, DBIL #### [facility] [address] [facility] [id number] [facility] CHEST [address] [facility] 12-24-2020 [facility] CHEST 2 [facility] Department of Radiology [address] [place] [address] == Patient Name: VISHAL DUEK : 1960 Sex: M Age: Race: White Pt. Location: [facility] Patient Status: D Ordered Date: 12/24/2020 3:50:00 PM Completed Date: 12/24/2020 03:48 PM Requesting Provider: ZULY VERDUZCO Attending Provider: Report Copy To: Signs & Symptoms: U07.1 COVID-19 I10 History: [place] Comments: covid Exam: [facility] CHEST 2 [facility] == [facility] CHEST 2 VWS 12/24/2020 3:48 [...] process. Electronically signed: Giovana Garrido. Transcribed by: [email or web address], User Resident: Electronically Signed by: GIOVANA GARRIDO @ 12/25/2020 12:24 PM Normal [facility] Comment on above: Order Comment: No: D o not add to previous draw CV'D BY [facility] AT 1240 Glucose Poct Glucometerson 0 12-12-2020 Commemt1 Glu2: Cleaned Meter Normal [facility] Comment on above: Result Comment: PERF ORMED BY: [place] [address] PATHOLOGIST DRUG SAFETY ASSOCIATE SHYANN OLIVIER M.D. Performed By: #### B MP, HS TROP, CBC, PT, PTT, BNP #### [facility] [address] [place] [address] [place] Glucose [Mass/Vol] 147 mg/dL Normal [facility] Comment on above: Result Comment: [place] om Glucose Reference Range is dependent on time and content of last meal. Glucose of more than 200 mg/dL in a nonstressed, ambulatory subject supports the diagnosis of Diabetes Mellitus. Performed By: #### B MP, HS TROP, CBC, PT, PTT, BNP #### [facility] [address] [place] [address] [place] Glucose [Mass/Vol] 107 mg/dL Normal [facility] Comment on above: Result Comment: [place] om Glucose Reference Range is dependent on time and content of last meal. Glucose of more than 200 mg/dL in a nonstressed, ambulatory subject supports the diagnosis of Diabetes Mellitus. PERFORMED BY: [place] [address] PATHOLOGIST DRUG SAFETY ASSOCIATE SHYANN OLIVIER M.D. Performed By: #### B MP, HS TROP, CBC, PT, PTT, BNP #### [address] XR chest 2V*on 12-12-2020 XR chest 2V* [facility] [place] [address] [place] [address] XRay Report Signed Patient: Vishal Duke MR#: [id number] : 1960 Acct:[id number] Age/Sex: 59 / M ADM Date: 12/08/20 Loc: Room: [address] [place] [address] Type: ADM IN Attending Dr: Leonardo Storey [...] Farah Jr., M.D.12/12/2020 9:15 AM Dictation Location: [place] [address] Transcribed By: [facility] 12/12/20914 Dictated By: Faraz Farah Jr, MD 12/12/20908 Signed By: 12/12/20914 Normal [facility] Basic Metabolic Panelon 08- Calcium [Mass/Vol] 8.9 mg/dL Normal 8.2-10.2 [facility] Comment on above: Performed By: #### B MP, HS TROP, CBC, PT, PTT, BNP #### [address] Chloride [Moles/Vol] 105 mmol/L Normal 95-114 [facility] Comment on above: Performed By: #### B MP, HS TROP, CBC, PT, PTT, BNP #### [address] CO2 [Moles/Vol] 22.1 mmol/L Normal 22.0-30.0 [facility] Comment on above: Performed By: #### B MP, HS TROP, CBC, PT, PTT, BNP #### [address] Creatinine [Mass/Vol] 1.08 mg/dL Normal 0.64-1.27 [facility] Comment on above: Performed By: #### B MP, HS TROP, CBC, PT, PTT, BNP #### [address] Creatinine Clr Calc Pharmacy 78.44 [facility] Comment on above: Result Comment: PERF ORMED BY: [place] [address] PATHOLOGIST DRUG SAFETY ASSOCIATE SHYANN OLIVIER M.D. Performed By: #### B MP, HS TROP, CBC, PT, PTT, BNP #### [address] Estimated GFR ( Nata > 60 [facility] Comment on above: Result Comment: GFR estimated reference range: According to KDOQI guidelines, <60 ml/min/1.73m2 is sufficient to diagnose a patient with chronic kidney disease. Performed By: #### B MP, HS TROP, CBC, PT, PTT, BNP #### [address] Estimated GFR (Non- Am > 60 [facility] Comment on above: Performed By: #### B MP, HS TROP, CBC, PT, PTT, BNP #### [place] [address] Glucose [Mass/Vol] 138 mg/dL High 70-100 [facility] Comment on above: Result Comment: [facility] Glucose Reference Range is dependent on time and content of last meal. Glucose of more than 200 mg/dL in a nonstressed, ambulatory subject supports the diagnosis of Diabetes Mellitus. ADA recommended reference range Performed By: #### B MP, HS TROP, CBC, PT, PTT, BNP #### [address] Potassium [Moles/Vol] 4.2 mmol/L Normal 3.5-5.1 [facility] Comment on above: Performed By: #### B MP, HS TROP, CBC, PT, PTT, BNP #### [address] Sodium [Moles/Vol] 138 mmol/L Normal 136-146 [facility] Comment on above: Performed By: #### B MP, HS TROP, CBC, PT, PTT, BNP #### [address] Urea nitrogen [Mass/Vol] 11 mg/dL Normal 9-23 [facility] Comment on above: Performed By: #### B MP, HS TROP, CBC, PT, PTT, BNP #### [address] Complete Blood Count Auto Di ffon 12-11-2020 Basophils (Bld) [#/Vol] 0.1 10*3/uL Normal 0.0-0.2 [facility] Comment on above: Result Comment: PERF ORMED BY: [place] [address] PATHOLOGIST DRUG SAFETY ASSOCIATE SHYANN OLIVIER M.D. Performed By: #### B MP, HS TROP, CBC, PT, PTT, BNP #### [address] Basophils/100 WBC (Bld) 0.7 % Normal . [facility] Comment on above: Performed By: #### B MP, HS TROP, CBC, PT, PTT, BNP #### [address] Eosinophils (Bld) [#/Vol] 0.1 10*3/uL Normal 0.0-0.45 [facility] Comment on above: Performed By: #### B MP, HS TROP, CBC, PT, PTT, BNP #### [address] Eosinophils/100 WBC (Bld) 1.3 % Normal . [facility] Comment on above: Performed By: #### B MP, HS TROP, CBC, PT, PTT, BNP #### [address] Erythrocyte distribution width (RBC) [Ratio] 15.2 % High 12.0-14.8 [facility] Comment on above: Performed By: #### B MP, HS TROP, CBC, PT, PTT, BNP #### [address] Hematocrit (Bld) [Volume fraction] 38.0 % Low 38.8-50.0 [facility] Comment on above: Performed By: #### B MP, HS TROP, CBC, PT, PTT, BNP #### [address] Hemoglobin (Bld) [Mass/Vol] 13.0 g/dL Normal 13.0-17.0 [facility] Comment on above: Performed By: #### B MP, HS TROP, CBC, PT, PTT, BNP #### [address] Lymphocytes (Bld) [#/Vol] 0.7 10*3/uL Low 1.00-4.8 [facility] Comment on above: Performed By: #### B MP, HS TROP, CBC, PT, PTT, BNP #### [address] Lymphocytes/100 WBC (Bld) 7.7 % Normal . [facility] Comment on above: Performed By: #### B MP, HS TROP, CBC, PT, PTT, BNP #### [address] MCH (RBC) [Entitic mass] 31.5 pg Normal 27.5-35.2 [facility] Comment on above: Performed By: #### B MP, HS TROP, CBC, PT, PTT, BNP #### [address] MCV (RBC) [Entitic vol] 91.7 fL Normal 83.5-101 [facility] Comment on above: Performed By: #### B MP, HS TROP, CBC, PT, PTT, BNP #### [address] Mean Corpuscular HGB Conc 34.3 g/dL Normal 32.5-35.6 [facility] Comment on above: Performed By: #### B MP, HS TROP, CBC, PT, PTT, BNP #### [address] Monocytes (Bld) [#/Vol] 0.9 10*3/uL High 0.0-0.8 [facility] Comment on above: Performed By: #### B MP, HS TROP, CBC, PT, PTT, BNP #### [address] Monocytes/100 WBC (Bld) 9.4 % Normal . [facility] Comment on above: Performed By: #### B MP, HS TROP, CBC, PT, PTT, BNP #### [address] Neutrophils (Bld) [#/Vol] 7.5 10*3/uL Normal 1.8-7.7 [facility] Comment on above: Performed By: #### B MP, HS TROP, CBC, PT, PTT, BNP #### [address] Neutrophils/100 WBC (Bld) 80.9 % Normal . [facility] Comment on above: Performed By: #### B MP, HS TROP, CBC, PT, PTT, BNP #### [place] [address] Nucleated RBC/100 WBC (Bld) [Ratio] 0.0 % Normal 0-0.5 [facility] Comment on above: Performed By: #### B MP, HS TROP, CBC, PT, PTT, BNP #### [facility] [address] Platelet mean volume (Bld) [Entitic vol] 7.6 fL Normal 6.6-10.1 [facility] Comment on above: Performed By: #### B MP, HS TROP, CBC, PT, PTT, BNP #### [address] Platelets (Bld) [#/Vol] 385 10*3/uL Normal 150-450 [facility] Comment on above: Performed By: #### B MP, HS TROP, CBC, PT, PTT, BNP #### [address] RBC (Bld) [#/Vol] 4.14 10*6/uL Normal 3.90-5.60 [facility] Comment on above: Performed By: #### B MP, HS TROP, CBC, PT, PTT, BNP #### [address] WBC (Bld) [#/Vol] 9.3 10*3/uL Normal 4.5-11.0 [facility] Comment on above: Performed By: #### B MP, HS TROP, CBC, PT, PTT, BNP #### [address] Glucose Poct Glucometerson 0 12-11-2020 Glucose [Mass/Vol] 129 mg/dL Normal [facility] Comment on above: Result Comment: [facility] Glucose Reference Range is dependent on time and content of last meal. Glucose of more than 200 mg/dL in a nonstressed, ambulatory subject supports the diagnosis of Diabetes Mellitus. PERFORMED BY: [place] [address] PATHOLOGIST DRUG SAFETY ASSOCIATE SHYANN OLIVIER M.D. Performed By: #### B MP, HS TROP, CBC, PT, PTT, BNP #### [address] Partial Thromboplastin Timeo n 12-11-2020 aPTT Coag (Bld) [Time] 32.7 s Normal 25.1-36.5 [facility] Comment on above: Result Comment: PERF ORMED BY: [place] [address] PATHOLOGIST DRUG SAFETY ASSOCIATE SHYANN OLIVIER M.D. Performed By: #### B MP, HS TROP, CBC, PT, PTT, BNP #### [address] Prothrombin Time INRon 12-11 INR Coag (PPP) [Relative time] 1.2 {INR} Normal [facility] Comment on above: Result Comment: INR [...] HS TROP, CBC, PT, PTT, BNP #### [address] PT Coag (PPP) [Time] 13.8 s High 9.0-12.9 [facility] Comment on above: Performed By: #### B MP, HS TROP, CBC, PT, PTT, BNP #### [place] [address] [place] XR chest 1V portableon 12-11 XR chest 1V portable [facility] [place] [address] [place] [address] XRay Report Signed Patient: Vishal Duke MR#: [id number] : 1960 Acct:[id number] Age/Sex: 59 / M ADM Date: 12/08/20 Loc: Room: 6K7698-2 Type: ADM IN Attending Dr: Leonardo Storey [...] Biju Ag M.D.12/11/2020 12:40 PM Dictation Location: [place] [address] Transcribed By: [facility] 12/11/20 1240 Dictated By: Biju Ag MD 12/11/20 1236 Signed By: 12/11/20 1240 Normal [facility] Complete Blood Count Auto Di ffon 12-10-2020 Basophils (Bld) [#/Vol] 0.0 10*3/uL Normal 0.0-0.2 [facility] Comment on above: Result Comment: PERF ORMED BY: [place] [address] PATHOLOGIST DRUG SAFETY ASSOCIATE SHYANN OLIVIER M.D. Performed By: #### B MP, HS TROP, CBC, PT, PTT, BNP #### [facility] [address] [place] [address] [place] Basophils/100 WBC (Bld) 0.3 % Normal . [facility] Comment on above: Performed By: #### B MP, HS TROP, CBC, PT, PTT, BNP #### [facility] [address] [place] [address] [place] Eosinophils (Bld) [#/Vol] 0.1 10*3/uL Normal 0.0-0.45 [facility] Comment on above: Performed By: #### B MP, HS TROP, CBC, PT, PTT, BNP #### [address] Eosinophils/100 WBC (Bld) 0.5 % Normal . [facility] Comment on above: Performed By: #### B MP, HS TROP, CBC, PT, PTT, BNP #### [address] Erythrocyte distribution width (RBC) [Ratio] 15.1 % High 12.0-14.8 [facility] Comment on above: Performed By: #### B MP, HS TROP, CBC, PT, PTT, BNP #### [address] Hematocrit (Bld) [Volume fraction] 39.5 % Normal 38.8-50.0 [facility] Comment on above: Performed By: #### B MP, HS TROP, CBC, PT, PTT, BNP #### [address] Hemoglobin (Bld) [Mass/Vol] 13.1 g/dL Normal 13.0-17.0 [facility] Comment on above: Performed By: #### B MP, HS TROP, CBC, PT, PTT, BNP #### [address] Lymphocytes (Bld) [#/Vol] 0.5 10*3/uL Low 1.00-4.8 [facility] Comment on above: Performed By: #### B MP, HS TROP, CBC, PT, PTT, BNP #### [address] Lymphocytes/100 WBC (Bld) 4.0 % Normal . [facility] Comment on above: Performed By: #### B MP, HS TROP, CBC, PT, PTT, BNP #### [address] MCH (RBC) [Entitic mass] 31.2 pg Normal 27.5-35.2 [facility] Comment on above: Performed By: #### B MP, HS TROP, CBC, PT, PTT, BNP #### [address] MCV (RBC) [Entitic vol] 94.1 fL Normal 83.5-101 [facility] Comment on above: Performed By: #### B MP, HS TROP, CBC, PT, PTT, BNP #### [address] Mean Corpuscular HGB Conc 33.2 g/dL Normal 32.5-35.6 [facility] Comment on above: Performed By: #### B MP, HS TROP, CBC, PT, PTT, BNP #### [address] Monocytes (Bld) [#/Vol] 0.8 10*3/uL Normal 0.0-0.8 [facility] Comment on above: Performed By: #### B MP, HS TROP, CBC, PT, PTT, BNP #### [address] Monocytes/100 WBC (Bld) 6.6 % Normal . [facility] Comment on above: Performed By: #### B MP, HS TROP, CBC, PT, PTT, BNP #### [address] Neutrophils (Bld) [#/Vol] 10.5 10*3/uL High 1.8-7.7 [facility] Comment on above: Performed By: #### B MP, HS TROP, CBC, PT, PTT, BNP #### [address] Neutrophils/100 WBC (Bld) 88.6 % Normal . [facility] Comment on above: Performed By: #### B MP, HS TROP, CBC, PT, PTT, BNP #### [address] Nucleated RBC/100 WBC (Bld) [Ratio] 0.1 % Normal 0-0.5 [facility] Comment on above: Performed By: #### B MP, HS TROP, CBC, PT, PTT, BNP #### [address] Platelet mean volume (Bld) [Entitic vol] 8.1 fL Normal 6.6-10.1 [facility] Comment on above: Performed By: #### B MP, HS TROP, CBC, PT, PTT, BNP #### [address] Platelets (Bld) [#/Vol] 403 10*3/uL Normal 150-450 [facility] Comment on above: Performed By: #### B MP, HS TROP, CBC, PT, PTT, BNP #### [address] RBC (Bld) [#/Vol] 4.20 10*6/uL Normal 3.90-5.60 [facility] Comment on above: Performed By: #### B MP, HS TROP, CBC, PT, PTT, BNP #### [address] WBC (Bld) [#/Vol] 11.9 10*3/uL High 4.5-11.0 [facility] Comment on above: Performed By: #### B MP, HS TROP, CBC, PT, PTT, BNP #### [address] Comprehensive Metabolic Pane nitin 12-10-2020 Albumin [Mass/Vol] 3.1 g/dL Low 3.2-5.5 [facility] Comment on above: Result Comment: --- 12/10/201240 --- Alb previously reported as: 2.8 L gm/dL Performed By: #### B MP, HS TROP, CBC, PT, PTT, BNP #### [address] Albumin/Globulin [Mass ratio] 0.9 {ratio} Normal [facility] Comment on above: Result Comment: --- 12/10/201240 --- A/G Ratio previously reported as: 0.8 Performed By: #### B MP, HS TROP, CBC, PT, PTT, BNP #### [address] ALP [Catalytic activity/Vol] 98 U/L High 32-92 [facility] Comment on above: Result Comment: --- 12/10/201241 --- Alk Phos previously reported as: 91 U/L Performed By: #### B MP, HS TROP, CBC, PT, PTT, BNP #### [address] ALT [Catalytic activity/Vol] 123 U/L High 10-60 [facility] Comment on above: Result Comment: --- 12/10/201241 --- ALT previously reported as: 116 H U/L Performed By: #### B MP, HS TROP, CBC, PT, PTT, BNP #### [address] AST [Catalytic activity/Vol] 91 U/L High 10-42 [facility] Comment on above: Result Comment: --- 12/10/201241 --- AST previously reported as: 82 H U/L Performed By: #### B MP, HS TROP, CBC, PT, PTT, BNP #### [address] Bilirubin [Mass/Vol] 0.7 mg/dL Normal 0.3-1.2 [facility] Comment on above: Result Comment: --- 12/10/201240 --- TOTAL BILI previously reported as: 0.9 mg/dL Performed By: #### B MP, HS TROP, CBC, PT, PTT, BNP #### [address] Calcium [Mass/Vol] 9.0 mg/dL Normal 8.2-10.2 [facility] Comment on above: Result Comment: --- 12/10/201240 --- CA previously reported as: 8.2 mg/dL Performed By: #### B MP, HS TROP, CBC, PT, PTT, BNP #### [address] Chloride [Moles/Vol] 99 mmol/L Normal 95-114 [facility] Comment on above: Result Comment: --- 12/10/201240 --- CL previously reported as: 97 mmol/L Performed By: #### B MP, HS TROP, CBC, PT, PTT, BNP #### [address] CO2 [Moles/Vol] 20.4 mmol/L Low 22.0-30.0 [facility] Comment on above: Result Comment: --- 12/10/201240 --- CO2 previously reported as: 21.7 L mmol/L Performed By: #### B MP, HS TROP, CBC, PT, PTT, BNP #### [address] Creatinine [Mass/Vol] 1.09 mg/dL Normal 0.64-1.27 [facility] Comment on above: Result Comment: --- 12/10/201239 --- Creat previously reported as: 1.01 mg/dL Performed By: #### B MP, HS TROP, CBC, PT, PTT, BNP #### [address] Creatinine Clr Calc Pharmacy 77.72 [facility] Comment on above: Result Comment: --- 12/10/201239 --- Creat Calc PHA previously reported as: 83.87 PERFORMED BY: [place] [address] PATHOLOGIST DRUG SAFETY ASSOCIATE SHYANN OLIVIER M.D. Performed By: #### B MP, HS TROP, CBC, PT, PTT, BNP #### [address] Estimated GFR ( Nata > 60 [facility] Comment on above: Result Comment: --- 12/10/20 1227 --- GFReAA previously reported as: > 60 mL/Min GFR estimated reference range: According to KDOQI guidelines, <60 ml/min/1.73m2 is sufficient to diagnose a patient with chronic kidney disease. Performed By: #### B MP, HS TROP, CBC, PT, PTT, BNP #### [facility] [address] Estimated GFR (Non- Am > 60 Normal [facility] Comment on above: Result Comment: --- 12/10/20 1227 --- GFRe previously reported as: > 60 mL/Min Performed By: #### B MP, HS TROP, CBC, PT, PTT, BNP #### [facility] [address] Globulin (S) [Mass/Vol] 3.3 g/dL Normal [facility] Comment on above: Result Comment: --- 12/10/20 1227 --- Glob previously reported as: 3.3 gm/dL Performed By: #### B MP, HS TROP, CBC, PT, PTT, BNP #### [address] Glucose [Mass/Vol] 160 mg/dL High 70-100 [facility] Comment on above: Result Comment: Resu [...] HS TROP, CBC, PT, PTT, BNP #### [facility] [address] [place] [id number] [facility] Potassium [Moles/Vol] 4.1 mmol/L Normal 3.5-5.1 [facility] Comment on above: Result Comment: --- 12/10/20 1241 --- K previously reported as: 3.8 mmol/L Performed By: #### B MP, HS TROP, CBC, PT, PTT, BNP #### [address] Protein [Mass/Vol] 6.4 g/dL Normal 6.1-7.9 [facility] Comment on above: Result Comment: --- 12/10/20 1241 --- TP previously reported as: 6.1 gm/dL Performed By: #### B MP, HS TROP, CBC, PT, PTT, BNP #### [facility] [address] [place] [id number] [facility] Sodium [Moles/Vol] 134 mmol/L Low 136-146 [facility] Comment on above: Result Comment: --- 12/10/20 1241 --- NA previously reported as: 128 # L mmol/L Performed By: #### B MP, HS TROP, CBC, PT, PTT, BNP #### [facility] [address] [place] [id number] [facility] Urea nitrogen [Mass/Vol] 10 mg/dL Normal 9-23 [facility] Comment on above: Result Comment: --- 12/10/20 1239 --- BUN previously reported as: 10 mg/dL Performed By: #### B MP, HS TROP, CBC, PT, PTT, BNP #### [facility] [address] [place] [id number] [facility] ECG 12 lead ECGon 12-10-2020 ECG 12 lead ECG [facility] [place] [address] [place] [address] Electrocardiograph Report Signed Patient: Vishal Duke MR#: [id number] : 1960 Acct:[id number] Age/Sex: 59 / M ADM Date: 12/08/20 Loc: Room: [address] [place] [address] Type: ADM IN Attending Dr: Leonardo Storey [...] evident in Lateral leads Confirmed by DAT MOROCHOKADEN ([id number]) on 12/10/2020 9:00:58 AM Referred By: Electronically Signed By:KADEN DAUGHERTY MD, FACC Transcribed By: MUS Dictated By: Kaden Daugherty MD, FACMai 12/10/20 0652 Signed By: 12/10/20 0901 Normal [facility] echo transthoracicon [facility] echo transthoracic [facility] [place] [address] Echocardiogram Signed Patient: Vishal Duke MR#: [id number] : 1960 Acct:[id number] Age/Sex: 59 / M ADM Date: 12/08/20 Loc: Room: [address] [place] [address] Type: ADM IN Attending Dr: Leonardo Storey MD Ordering Provider: Leonardo Storey MD Date of Service: 12/09/20 [facility] echo transthoracic: torsades de pointes Copies to: [...] DO 12/10/20 0816 Signed By: 12/10/20 1150 [facility] Glucose Poct Glucometerson 0 12-10-2020 Glucose [Mass/Vol] 157 mg/dL [facility] Comment on above: Result Comment: [facility] Glucose Reference Range is dependent on time and content of last meal. Glucose of more than 200 mg/dL in a nonstressed, ambulatory subject supports the diagnosis of Diabetes Mellitus. PERFORMED BY: [place] [address] PATHOLOGIST DRUG SAFETY ASSOCIATE SHYANN OLIVIER M.D. Performed By: #### B MP, HS TROP, CBC, PT, PTT, BNP #### [address] Commemt1 Glu2: Cleaned Meter [facility] Comment on above: Result Comment: PERF ORMED BY: [place] [address] PATHOLOGIST DRUG SAFETY ASSOCIATE SHYANN OLIVIER M.D. Performed By: #### B MP, HS TROP, CBC, PT, PTT, BNP #### [address] Glucose [Mass/Vol] 122 mg/dL Normal [facility] Comment on above: Result Comment: [place] [facility] Glucose Reference Range is dependent on time and content of last meal. Glucose of more than 200 mg/dL in a nonstressed, ambulatory subject supports the diagnosis of Diabetes Mellitus. Performed By: #### B MP, HS TROP, CBC, PT, PTT, BNP #### [address] Glucose [Mass/Vol] 179 mg/dL Normal [facility] Comment on above: Result Comment: [place] [facility] Glucose Reference Range is dependent on time and content of last meal. Glucose of more than 200 mg/dL in a nonstressed, ambulatory subject supports the diagnosis of Diabetes Mellitus. PERFORMED BY: [place] [address] PATHOLOGIST DRUG SAFETY ASSOCIATE SHYANN OLIVIER M.D. Performed By: #### B MP, HS TROP, CBC, PT, PTT, BNP #### [place] [id number] [facility] Troponin I High Sensitivityo n 12-10-2020 Troponin I High Sensitivity 9777 pg/mL Off scale high 0-20 [facility] Comment on above: Result Comment: PERF ORMED BY: [place] [address] PATHOLOGIST DRUG SAFETY ASSOCIATE SHYANN OLIVIER M.D. Performed By: #### B MP, HS TROP, CBC, PT, PTT, BNP #### [place] [id number] [place] XR chest 1V portableon 12-10 XR chest 1V portable [facility] [place] [address] [place] [address] XRay Report Signed Patient: Vishal Duke MR#: [id number] : 1960 Acct:[id number] Age/Sex: 59 / M ADM Date: 12/08/20 Loc: Room: [address] [place] [address] Type: ADM IN Attending Dr: Leonardo Storey MD Ordering Provider: Daniel Prabhakar DO Date of Service: 12/10/20 XR/XR chest 1V portable: dyspnea, in-hospital CPA with ROSC Copies to: MD Daniel Cheng, XR chest 1V portable 12/09/2020 9:03 PM [...] Ajith Saleh M.D.12/10/2020 8:05 AM Dictation Location: [place] [address] Transcribed By: [facility] 12/10/20804 Dictated By: Ajith Saleh II, MD 12/10/20802 Signed By: 12/10/20804 Normal [facility] Basic Metabolic Panelon 11-16 Calcium [Mass/Vol] 9.6 mg/dL Normal 8.2-10.2 [facility] Comment on above: Performed By: #### B MP, HS TROP, CBC, PT, PTT, BNP #### [facility] [address] [place] [address] [place] Chloride [Moles/Vol] 101 mmol/L Normal 95-114 [facility] Comment on above: Performed By: #### B MP, HS TROP, CBC, PT, PTT, BNP #### [facility] [address] [place] [id number] [place] CO2 [Moles/Vol] 23.3 mmol/L Normal 22.0-30.0 [facility] Comment on above: Performed By: #### B MP, HS TROP, CBC, PT, PTT, BNP #### [address] Creatinine [Mass/Vol] 0.97 mg/dL Normal 0.64-1.27 [facility] Comment on above: Performed By: #### B MP, HS TROP, CBC, PT, PTT, BNP #### [address] Creatinine Clr Calc Pharmacy 87.33 [facility] Comment on above: Result Comment: PERF ORMED BY: [place] [address] PATHOLOGIST DRUG SAFETY ASSOCIATE SHYANN OLIVIER M.D. Performed By: #### B MP, HS TROP, CBC, PT, PTT, BNP #### [address] Estimated GFR ( Nata > 60 [facility] Comment on above: Result Comment: GFR estimated reference range: According to KDOQI guidelines, <60 ml/min/1.73m2 is sufficient to diagnose a patient with chronic kidney disease. Performed By: #### B MP, HS TROP, CBC, PT, PTT, BNP #### [address] Estimated GFR (Non- Am > 60 [facility] Comment on above: Performed By: #### B MP, HS TROP, CBC, PT, PTT, BNP #### [address] Glucose [Mass/Vol] 128 mg/dL High 70-100 [facility] Comment on above: Result Comment: [place] [facility] Glucose Reference Range is dependent on time and content of last meal. Glucose of more than 200 mg/dL in a nonstressed, ambulatory subject supports the diagnosis of Diabetes Mellitus. ADA recommended reference range Performed By: #### B MP, HS TROP, CBC, PT, PTT, BNP #### [address] Potassium [Moles/Vol] 4.2 mmol/L Normal 3.5-5.1 [facility] Comment on above: Performed By: #### B MP, HS TROP, CBC, PT, PTT, BNP #### [address] Sodium [Moles/Vol] 139 mmol/L Normal 136-146 [facility] Comment on above: Performed By: #### B MP, HS TROP, CBC, PT, PTT, BNP #### [address] Urea nitrogen [Mass/Vol] 15 mg/dL Normal 9-23 [facility] Comment on above: Performed By: #### B MP, HS TROP, CBC, PT, PTT, BNP #### [address] Complete Blood Count Auto Di ffon 12-09-2020 Basophils (Bld) [#/Vol] 0.1 10*3/uL Normal 0.0-0.2 [facility] Comment on above: Result Comment: PERF ORMED BY: [place] [address] PATHOLOGIST DRUG SAFETY ASSOCIATE SHYANN OLIVIER M.D. Performed By: #### B MP, HS TROP, CBC, PT, PTT, BNP #### [address] Basophils/100 WBC (Bld) 1.0 % Normal . [facility] Comment on above: Performed By: #### B MP, HS TROP, CBC, PT, PTT, BNP #### [address] Eosinophils (Bld) [#/Vol] 0.2 10*3/uL Normal 0.0-0.45 [facility] Comment on above: Performed By: #### B MP, HS TROP, CBC, PT, PTT, BNP #### [address] Eosinophils/100 WBC (Bld) 2.8 % Normal . [facility] Comment on above: Performed By: #### B MP, HS TROP, CBC, PT, PTT, BNP #### [address] Erythrocyte distribution width (RBC) [Ratio] 15.0 % High 12.0-14.8 [facility] Comment on above: Performed By: #### B MP, HS TROP, CBC, PT, PTT, BNP #### [address] Hematocrit (Bld) [Volume fraction] 41.9 % Normal 38.8-50.0 [facility] Comment on above: Performed By: #### B MP, HS TROP, CBC, PT, PTT, BNP #### [address] Hemoglobin (Bld) [Mass/Vol] 14.2 g/dL Normal 13.0-17.0 [facility] Comment on above: Performed By: #### B MP, HS TROP, CBC, PT, PTT, BNP #### [address] Lymphocytes (Bld) [#/Vol] 1.1 10*3/uL Normal 1.00-4.8 [facility] Comment on above: Performed By: #### B MP, HS TROP, CBC, PT, PTT, BNP #### [address] Lymphocytes/100 WBC (Bld) 13.9 % Normal . [facility] Comment on above: Performed By: #### B MP, HS TROP, CBC, PT, PTT, BNP #### [address] MCH (RBC) [Entitic mass] 31.4 pg Normal 27.5-35.2 [facility] Comment on above: Performed By: #### B MP, HS TROP, CBC, PT, PTT, BNP #### [address] MCV (RBC) [Entitic vol] 92.5 fL Normal 83.5-101 [facility] Comment on above: Performed By: #### B MP, HS TROP, CBC, PT, PTT, BNP #### [address] Mean Corpuscular HGB Conc 33.9 g/dL Normal 32.5-35.6 [facility] Comment on above: Performed By: #### B MP, HS TROP, CBC, PT, PTT, BNP #### [address] Monocytes (Bld) [#/Vol] 0.6 10*3/uL Normal 0.0-0.8 [facility] Comment on above: Performed By: #### B MP, HS TROP, CBC, PT, PTT, BNP #### [address] Monocytes/100 WBC (Bld) 8.3 % Normal . [facility] Comment on above: Performed By: #### B MP, HS TROP, CBC, PT, PTT, BNP #### [address] Neutrophils (Bld) [#/Vol] 5.8 10*3/uL Normal 1.8-7.7 [facility] Comment on above: Performed By: #### B MP, HS TROP, CBC, PT, PTT, BNP #### [address] Neutrophils/100 WBC (Bld) 74.0 % Normal . [facility] Comment on above: Performed By: #### B MP, HS TROP, CBC, PT, PTT, BNP #### [address] Nucleated RBC/100 WBC (Bld) [Ratio] 0.0 % Normal 0-0.5 [facility] Comment on above: Performed By: #### B MP, HS TROP, CBC, PT, PTT, BNP #### [address] Platelet mean volume (Bld) [Entitic vol] 8.0 fL Normal 6.6-10.1 [facility] Comment on above: Performed By: #### B MP, HS TROP, CBC, PT, PTT, BNP #### [facility] [address] Platelets (Bld) [#/Vol] 409 10*3/uL Normal 150-450 [facility] Comment on above: Performed By: #### B MP, HS TROP, CBC, PT, PTT, BNP #### [facility] [address] RBC (Bld) [#/Vol] 4.53 10*6/uL Normal 3.90-5.60 [facility] Comment on above: Performed By: #### B MP, HS TROP, CBC, PT, PTT, BNP #### [address] WBC (Bld) [#/Vol] 7.8 10*3/uL Normal 4.5-11.0 [facility] Comment on above: Performed By: #### B MP, HS TROP, CBC, PT, PTT, BNP #### [address] Creatine Kinaseon 12-09-2020 CK [Catalytic activity/Vol] 128 U/L Normal 22-269 [facility] Comment on above: Order Comment: get a ll labs @0315 per rn Performed By: #### B MP, HS TROP, CBC, PT, PTT, BNP #### [address] Creatinine Kinase MBon 12-09 CK.MB [Mass/Vol] 15.6 ng/mL High 0.6-6.3 [facility] Comment on above: Order Comment: get a ll labs @0315 per rn Performed By: #### B MP, HS TROP, CBC, PT, PTT, BNP #### [address] CKMB Relative Index 12.1 % High 0.00-2.50 [facility] Comment on above: Order Comment: get a ll labs @0315 per rn Performed By: #### B MP, HS TROP, CBC, PT, PTT, BNP #### [facility] [address] [place] [address] [facility] ECG 12 lead ECGon 12-09-2020 ECG 12 lead ECG [facility] [place] [address] [place] [address] Electrocardiograph Report Signed Patient: Vishal Duke MR#: [id number] : 1960 Acct:[id number] Age/Sex: 59 / M ADM Date: 12/08/20 Loc: Room: [address] [place] [address] Type: ADM IN Attending Dr: Leonardo Storey [...] 12/09/20 0816 Signed By: 12/09/20 1315 Normal [facility] Magnesiumon 12-09-2020 Magnesium [Mass/Vol] 2.0 mg/dL Normal 1.6-2.6 [facility] Comment on above: Order Comment: Comme nt Add on to am Result Comment: PERF ORMED BY: [address] [place] [address] PATHOLOGIST DRUG SAFETY ASSOCIATE SHYANN OLIVIER M.D. Performed By: #### B MP, HS TROP, CBC, PT, PTT, BNP #### [facility] [address] [place] [address] [place] Partial Thromboplastin Timeo n 12-09-2020 aPTT Coag (Bld) [Time] 37.7 s High 25.1-36.5 [facility] Comment on above: Result Comment: PERF ORMED BY: [place] [address] PATHOLOGIST DRUG SAFETY ASSOCIATE SHYANN OLIVIER M.D. Performed By: #### B MP, HS TROP, CBC, PT, PTT, BNP #### [facility] [address] [place] [address] Prothrombin Time INRon 12-09 INR Coag (PPP) [Relative time] 1.2 {INR} Normal [facility] Comment on above: Result Comment: INR [...] HS TROP, CBC, PT, PTT, BNP #### [facility] [address] [place] [address] PT Coag (PPP) [Time] 13.8 s High 9.0-12.9 [facility] Comment on above: Performed By: #### B MP, HS TROP, CBC, PT, PTT, BNP #### [facility] [address] [place] [address] Troponin I High Sensitivityo n 12-09-2020 Troponin I High Sensitivity 1641 pg/mL Off scale high 0-20 [facility] Comment on above: Order Comment: * RN to call lab when pt returns hko Result Comment: PERF ORMED BY: [place] [address] PATHOLOGIST DRUG SAFETY ASSOCIATE SHYANN OLIVIER M.D. Performed By: #### B MP, HS TROP, CBC, PT, PTT, BNP #### [facility] [address] [place] [address] Troponin I High Sensitivity 2472 pg/mL Off scale high 0-20 [facility] Comment on above: Order Comment: Comme nt during code blue Result Comment: PERF ORMED BY: [place] [address] PATHOLOGIST DRUG SAFETY ASSOCIATE SHYANN OLIVIER M.D. Performed By: #### B MP, HS TROP, CBC, PT, PTT, BNP #### [address] Troponin I High Sensitivity 1363 pg/mL Off scale high 0-20 [facility] Comment on above: Order Comment: get a ll labs @0315 per rn Result Comment: PERF ORMED BY: [place] [address] PATHOLOGIST DRUG SAFETY ASSOCIATE SHYANN OLIVIER M.D. Performed By: #### B MP, HS TROP, CBC, PT, PTT, BNP #### [address] B-Type Natriuretic Peptideon 12-08-2020 Natriuretic peptide B (Bld) [Mass/Vol] 199.0 pg/mL High 5-100 [facility] Comment on above: Result Comment: PERF ORMED BY: [place] [address] PATHOLOGIST DRUG SAFETY ASSOCIATE SHYANN OLIVIER M.D. Performed By: #### B MP, HS TROP, CBC, PT, PTT, BNP #### [address] Basic Metabolic Panelon 082 Calcium [Mass/Vol] 10.1 mg/dL Normal 8.2-10.2 [facility] Comment on above: Performed By: #### B MP, HS TROP, CBC, PT, PTT, BNP #### [address] Chloride [Moles/Vol] 101 mmol/L Normal 95-114 [facility] Comment on above: Performed By: #### B MP, HS TROP, CBC, PT, PTT, BNP #### [address] CO2 [Moles/Vol] 23.2 mmol/L Normal 22.0-30.0 [facility] Comment on above: Performed By: #### B MP, HS TROP, CBC, PT, PTT, BNP #### [facility] [address] Creatinine [Mass/Vol] 1.15 mg/dL Normal 0.64-1.27 [facility] Comment on above: Performed By: #### B MP, HS TROP, CBC, PT, PTT, BNP #### [address] Creatinine Clr Calc Pharmacy 81.22 [facility] Comment on above: Result Comment: PERF ORMED BY: [place] [address] PATHOLOGIST DRUG SAFETY ASSOCIATE SHYANN OLIVIER M.D. Performed By: #### B MP, HS TROP, CBC, PT, PTT, BNP #### [address] Estimated GFR ( Nata > 60 [facility] Comment on above: Result Comment: GFR estimated reference range: According to KDOQI guidelines, <60 ml/min/1.73m2 is sufficient to diagnose a patient with chronic kidney disease. Performed By: #### B MP, HS TROP, CBC, PT, PTT, BNP #### [address] Estimated GFR (Non- Am > 60 [facility] Comment on above: Performed By: #### B MP, HS TROP, CBC, PT, PTT, BNP #### [address] Glucose [Mass/Vol] 153 mg/dL High 70-100 [facility] Comment on above: Result Comment: [place] Glucose Reference Range is dependent on time and content of last meal. Glucose of more than 200 mg/dL in a nonstressed, ambulatory subject supports the diagnosis of Diabetes Mellitus. ADA recommended reference range Performed By: #### B MP, HS TROP, CBC, PT, PTT, BNP #### [address] [place] [address] [facility] Potassium [Moles/Vol] 4.5 mmol/L Normal 3.5-5.1 [facility] Comment on above: Performed By: #### B MP, HS TROP, CBC, PT, PTT, BNP #### [facility] [address] [place] [id number] [facility] Sodium [Moles/Vol] 139 mmol/L Normal 136-146 [facility] Comment on above: Performed By: #### B MP, HS TROP, CBC, PT, PTT, BNP #### [facility] [address] Urea nitrogen [Mass/Vol] 15 mg/dL Normal 9-23 [facility] Comment on above: Performed By: #### B MP, HS TROP, CBC, PT, PTT, BNP #### [facility] [address] COVID-19 Antigenon 1 COVID-19 [facility] [...] its performance Tessa Disclaimer characteristic determined by [employer] and Tessa Disclaimer validated at [facility]. This Tessa Disclaimer test has not [...] is terminated or revoked sooner. PERFORMED BY: [facility] [place] [address] PATHOLOGIST DRUG SAFETY ASSOCIATE SHYANN OLIVIER M.D. [facility] Comment on above: Performed By: #### S OFIANEG, COVID-19 [place], COVID 19 [facility] #### [facility] [address] [place] [id number] [facility] COVID-19 [facility] 12-08-2020 SARS-CoV-2 (COVID-19) RNA ADELINE+probe Ql (Unsp spec) Negative Normal Negative [facility] Comment on above: Order Comment: Healt hcare Worker?: N Result Comment: Testing for SARS-CoV-2 by RT-PCR This test was developed and its performance characteristics determined by [employer] and validated at the [facility]. This test has not been FDA [...] is terminated or revoked sooner. PERFORMED BY: [place] [address] PATHOLOGIST DRUG SAFETY ASSOCIATE SHYANN OLIVIER M.D. Performed By: #### B MP, HS TROP, CBC, PT, PTT, BNP #### [facility] [address] [place], [place] [address] [facility] CT abdomen pelvis wo [place] [address] 12-08-2020 CT abdomen pelvis wo [facility] [place] [address] [place] [address] CT Scan Report Signed Patient: Vishal Duke MR#: [id number] : 1960 Acct:[id number] Age/Sex: 59 / M ADM Date: 12/08/20 Loc: ER Room: Type: [facility] ER Attending Dr: Ordering Provider: Irwin [...] Biju Ag M.D.12/08/2020 11:16 AM Dictation Location: [place] [address] Transcribed By: [facility] 12/08/20 1116 Dictated By: Biju Ag MD 12/08/20 1102 Signed By: 12/08/20 1116 Normal [facility] Complete Blood Count Auto Di ffon 12-08-2020 Basophils (Bld) [#/Vol] 0.1 10*3/uL Normal 0.0-0.2 [facility] Comment on above: Result Comment: PERF ORMED BY: [place] [address] PATHOLOGIST DRUG SAFETY ASSOCIATE SHYANN OLIVIER M.D. Performed By: #### B MP, HS TROP, CBC, PT, PTT, BNP #### [address] Basophils/100 WBC (Bld) 0.6 % Normal . [facility] Comment on above: Performed By: #### B MP, HS TROP, CBC, PT, PTT, BNP #### [address] Eosinophils (Bld) [#/Vol] 0.2 10*3/uL Normal 0.0-0.45 [facility] Comment on above: Performed By: #### B MP, HS TROP, CBC, PT, PTT, BNP #### [address] Eosinophils/100 WBC (Bld) 2.5 % Normal . [facility] Comment on above: Performed By: #### B MP, HS TROP, CBC, PT, PTT, BNP #### [address] Erythrocyte distribution width (RBC) [Ratio] 15.2 % High 12.0-14.8 [facility] Comment on above: Performed By: #### B MP, HS TROP, CBC, PT, PTT, BNP #### [address] Hematocrit (Bld) [Volume fraction] 41.7 % Normal 38.8-50.0 [facility] Comment on above: Performed By: #### B MP, HS TROP, CBC, PT, PTT, BNP #### [address] Hemoglobin (Bld) [Mass/Vol] 14.0 g/dL Normal 13.0-17.0 [facility] Comment on above: Performed By: #### B MP, HS TROP, CBC, PT, PTT, BNP #### [address] Lymphocytes (Bld) [#/Vol] 0.9 10*3/uL Low 1.00-4.8 [facility] Comment on above: Performed By: #### B MP, HS TROP, CBC, PT, PTT, BNP #### [address] Lymphocytes/100 WBC (Bld) 10.9 % Normal . [facility] Comment on above: Performed By: #### B MP, HS TROP, CBC, PT, PTT, BNP #### [address] MCH (RBC) [Entitic mass] 31.5 pg Normal 27.5-35.2 [facility] Comment on above: Performed By: #### B MP, HS TROP, CBC, PT, PTT, BNP #### [address] MCV (RBC) [Entitic vol] 93.7 fL Normal 83.5-101 [facility] Comment on above: Performed By: #### B MP, HS TROP, CBC, PT, PTT, BNP #### [address] Mean Corpuscular HGB Conc 33.6 g/dL Normal 32.5-35.6 [facility] Comment on above: Performed By: #### B MP, HS TROP, CBC, PT, PTT, BNP #### [address] Monocytes (Bld) [#/Vol] 0.6 10*3/uL Normal 0.0-0.8 [facility] Comment on above: Performed By: #### B MP, HS TROP, CBC, PT, PTT, BNP #### [address] Monocytes/100 WBC (Bld) 7.4 % Normal . [facility] Comment on above: Performed By: #### B MP, HS TROP, CBC, PT, PTT, BNP #### [address] Neutrophils (Bld) [#/Vol] 6.7 10*3/uL Normal 1.8-7.7 [facility] Comment on above: Performed By: #### B MP, HS TROP, CBC, PT, PTT, BNP #### [address] Neutrophils/100 WBC (Bld) 78.6 % Normal . [facility] Comment on above: Performed By: #### B MP, HS TROP, CBC, PT, PTT, BNP #### [address] Nucleated RBC/100 WBC (Bld) [Ratio] 0.1 % Normal 0-0.5 [facility] Comment on above: Performed By: #### B MP, HS TROP, CBC, PT, PTT, BNP #### [address] Platelet mean volume (Bld) [Entitic vol] 8.2 fL Normal 6.6-10.1 [facility] Comment on above: Performed By: #### B MP, HS TROP, CBC, PT, PTT, BNP #### [address] Platelets (Bld) [#/Vol] 414 10*3/uL Normal 150-450 [facility] Comment on above: Performed By: #### B MP, HS TROP, CBC, PT, PTT, BNP #### [address] RBC (Bld) [#/Vol] 4.44 10*6/uL Normal 3.90-5.60 [facility] Comment on above: Performed By: #### B MP, HS TROP, CBC, PT, PTT, BNP #### [address] WBC (Bld) [#/Vol] 8.5 10*3/uL Normal 4.5-11.0 [facility] Comment on above: Performed By: #### B MP, HS TROP, CBC, PT, PTT, BNP #### [address] Basophils (Bld) [#/Vol] 0.1 10*3/uL Normal 0.0-0.2 [facility] Comment on above: Result Comment: PERF ORMED BY: [place] [address] PATHOLOGIST DRUG SAFETY ASSOCIATE SHYANN OLIVIER M.D. Performed By: #### B MP, HS TROP, CBC, PT, PTT, BNP #### [address] Basophils/100 WBC (Bld) 0.7 % Normal . [facility] Comment on above: Performed By: #### B MP, HS TROP, CBC, PT, PTT, BNP #### [address] Eosinophils (Bld) [#/Vol] 0.2 10*3/uL Normal 0.0-0.45 [facility] Comment on above: Performed By: #### B MP, HS TROP, CBC, PT, PTT, BNP #### [address] Eosinophils/100 WBC (Bld) 1.8 % Normal . [facility] Comment on above: Performed By: #### B MP, HS TROP, CBC, PT, PTT, BNP #### [address] Erythrocyte distribution width (RBC) [Ratio] 15.5 % High 12.0-14.8 [facility] Comment on above: Performed By: #### B MP, HS TROP, CBC, PT, PTT, BNP #### [address] Hematocrit (Bld) [Volume fraction] 42.0 % Normal 38.8-50.0 [facility] Comment on above: Performed By: #### B MP, HS TROP, CBC, PT, PTT, BNP #### [address] Hemoglobin (Bld) [Mass/Vol] 14.2 g/dL Normal 13.0-17.0 [facility] Comment on above: Performed By: #### B MP, HS TROP, CBC, PT, PTT, BNP #### [address] Lymphocytes (Bld) [#/Vol] 0.8 10*3/uL Low 1.00-4.8 [facility] Comment on above: Performed By: #### B MP, HS TROP, CBC, PT, PTT, BNP #### [address] Lymphocytes/100 WBC (Bld) 7.7 % Normal . [facility] Comment on above: Performed By: #### B MP, HS TROP, CBC, PT, PTT, BNP #### [address] MCH (RBC) [Entitic mass] 31.3 pg Normal 27.5-35.2 [facility] Comment on above: Performed By: #### B MP, HS TROP, CBC, PT, PTT, BNP #### [address] MCV (RBC) [Entitic vol] 92.4 fL Normal 83.5-101 [facility] Comment on above: Performed By: #### B MP, HS TROP, CBC, PT, PTT, BNP #### [address] Mean Corpuscular HGB Conc 33.9 g/dL Normal 32.5-35.6 [facility] Comment on above: Performed By: #### B MP, HS TROP, CBC, PT, PTT, BNP #### [facility] [address] Monocytes (Bld) [#/Vol] 0.8 10*3/uL Normal 0.0-0.8 [facility] Comment on above: Performed By: #### B MP, HS TROP, CBC, PT, PTT, BNP #### [facility] [address] Monocytes/100 WBC (Bld) 7.5 % Normal . [facility] Comment on above: Performed By: #### B MP, HS TROP, CBC, PT, PTT, BNP #### [address] Neutrophils (Bld) [#/Vol] 9.0 10*3/uL High 1.8-7.7 [facility] Comment on above: Performed By: #### B MP, HS TROP, CBC, PT, PTT, BNP #### [address] Neutrophils/100 WBC (Bld) 82.3 % Normal . [facility] Comment on above: Performed By: #### B MP, HS TROP, CBC, PT, PTT, BNP #### [facility] [address] [place] [address] [place] Nucleated RBC/100 WBC (Bld) [Ratio] 0.1 % Normal 0-0.5 [facility] Comment on above: Performed By: #### B MP, HS TROP, CBC, PT, PTT, BNP #### [facility] [address] [place] [address] [place] Platelet mean volume (Bld) [Entitic vol] 7.9 fL Normal 6.6-10.1 [facility] Comment on above: Performed By: #### B MP, HS TROP, CBC, PT, PTT, BNP #### [place] [address] [place] Platelets (Bld) [#/Vol] 463 10*3/uL High 150-450 [facility] Comment on above: Performed By: #### B MP, HS TROP, CBC, PT, PTT, BNP #### [address] RBC (Bld) [#/Vol] 4.54 10*6/uL Normal 3.90-5.60 [facility] Comment on above: Performed By: #### B MP, HS TROP, CBC, PT, PTT, BNP #### [address] WBC (Bld) [#/Vol] 11.0 10*3/uL Normal 4.5-11.0 [facility] Comment on above: Performed By: #### B MP, HS TROP, CBC, PT, PTT, BNP #### [address] Creatine Kinaseon 12-08-2020 CK [Catalytic activity/Vol] 78 U/L Normal 22-269 [facility] Comment on above: Performed By: #### B MP, HS TROP, CBC, PT, PTT, BNP #### [address] CK [Catalytic activity/Vol] 67 U/L Normal 22-269 [facility] Comment on above: Performed By: #### B MP, HS TROP, CBC, PT, PTT, BNP #### [address] CK [Catalytic activity/Vol] 58 U/L Normal 22-269 [facility] Comment on above: Performed By: #### B MP, HS TROP, CBC, PT, PTT, BNP #### [address] Creatinine Kinase MBon 12-08 CK.MB [Mass/Vol] 6.3 ng/mL Normal 0.6-6.3 [facility] Comment on above: Performed By: #### B MP, HS TROP, CBC, PT, PTT, BNP #### [address] [place] [address] [place] CKMB Relative Index 8.0 % High 0.00-2.50 [facility] Comment on above: Performed By: #### B MP, HS TROP, CBC, PT, PTT, BNP #### [facility] [address] CK.MB [Mass/Vol] 4.2 ng/mL Normal 0.6-6.3 [facility] Comment on above: Performed By: #### B MP, HS TROP, CBC, PT, PTT, BNP #### [address] CKMB Relative Index 6.2 % High 0.00-2.50 [facility] Comment on above: Performed By: #### B MP, HS TROP, CBC, PT, PTT, BNP #### [address] CK.MB [Mass/Vol] 3.7 ng/mL Normal 0.6-6.3 [facility] Comment on above: Performed By: #### B MP, HS TROP, CBC, PT, PTT, BNP #### [address] CKMB Relative Index 6.3 % High 0.00-2.50 [facility] Comment on above: Performed By: #### B MP, HS TROP, CBC, PT, PTT, BNP #### [address] ECG 12 lead ECGon 12-08-2020 ECG 12 lead ECG [facility] [place] [address] Electrocardiograph Report Signed Patient: Vishal Duke MR#: [id number] : 1960 Acct:[id number] Age/Sex: 59 / M ADM Date: 12/08/20 Loc: Room: [address] [place] [address] Type: ADM INOo Attending Dr: Daniel Prabhakar [...] Lateral leads Confirmed by IRWIN LUTZ DO ([id number]) on 12/09/2020 6:02:40 AM Referred By: Electronically Signed By:IRWIN LUTZ DO Transcribed By: MUS Dictated By: Irwin Lutz DO 12/08/20 0950 Signed By: 12/09/20 0602 Normal [facility] Partial Thromboplastin Timeo n 12-08-2020 aPTT Coag (Bld) [Time] 131.9 s Off scale high 25.1-36.5 [facility] Comment on above: Result Comment: Resu lts called at 1947 on 12/08/20 PERFORMED BY: [place] [address] PATHOLOGIST DRUG SAFETY ASSOCIATE SHYANN OLIVIER M.D. Performed By: #### B MP, HS TROP, CBC, PT, PTT, BNP #### [facility] [address] [place], [place] [address] [facility] aPTT Coag (Bld) [Time] 36.2 s Normal 25.1-36.5 [facility] Comment on above: Result Comment: PERF ORMED BY: [place] [address] PATHOLOGIST DRUG SAFETY ASSOCIATE SHYANN OLIVIER M.D. Performed By: #### B MP, HS TROP, CBC, PT, PTT, BNP #### [facility] [address] [place], [place] [address] [place] Prothrombin Time INRon 12-08 INR Coag (PPP) [Relative time] 1.5 {INR} Normal [facility] Comment on above: Result Comment: INR [...] HS TROP, CBC, PT, PTT, BNP #### [facility] [address] PT Coag (PPP) [Time] 16.1 s High 9.0-12.9 [facility] Comment on above: Performed By: #### B MP, HS TROP, CBC, PT, PTT, BNP #### [facility] [address] INR Coag (PPP) [Relative time] 1.3 {INR} Normal [facility] Comment on above: Result Comment: INR [...] HS TROP, CBC, PT, PTT, BNP #### [address] PT Coag (PPP) [Time] 14.0 s High 9.0-12.9 [facility] Comment on above: Performed By: #### B MP, HS TROP, CBC, PT, PTT, BNP #### [facility] [address] Tessa Ag Negativeon 12-09-19 21 Tessa Ag Negative Negative Normal Negative [facility] Comment on above: Result Comment: This is a duplicate Tessa SARS Antigen (GISSEL) result to be used for statistical tracking purpose only. PERFORMED BY: [place] [address] PATHOLOGIST DRUG SAFETY ASSOCIATE SHYANN OLIVIER M.D. Performed By: #### S OFIANEG, COVID-19 [place], COVID 19 [facility] #### [facility] [address] [place] [address] [place] Troponin I High Sensitivityo n 12-08-2020 Troponin I High Sensitivity 474 pg/mL Off scale high 0-20 [facility] Comment on above: Result Comment: PERF ORMED BY: [place] [address] PATHOLOGIST DRUG SAFETY ASSOCIATE SHYANN OLIVIER M.D. Performed By: #### B MP, HS TROP, CBC, PT, PTT, BNP #### [place] [address] [place] Troponin I High Sensitivity 317 pg/mL Off scale high 0-20 [facility] Comment on above: Result Comment: PERF ORMED BY: [place] [address] PATHOLOGIST DRUG SAFETY ASSOCIATE SHYANN OLIVIER M.D. Performed By: #### B MP, HS TROP, CBC, PT, PTT, BNP #### [address] Troponin I High Sensitivity 183 pg/mL Off scale high 0-20 [facility] Comment on above: Result Comment: Crit ical value result called at 1719 on 12/08/20 PERFORMED BY: [place] [address] PATHOLOGIST DRUG SAFETY ASSOCIATE SHYANN OLIVIER M.D. Performed By: #### B MP, HS TROP, CBC, PT, PTT, BNP #### [facility] [address] [place] [address] [place] Troponin I High Sensitivity 49 pg/mL High 0-20 [facility] Comment on above: Result Comment: PERF ORMED BY: [place] [address] PATHOLOGIST DRUG SAFETY ASSOCIATE SHYANN OLIVIER M.D. Performed By: #### B MP, HS TROP, CBC, PT, PTT, BNP #### [facility] [address] [place] [address] [facility] XR chest 1V portableon 12-08 XR chest 1V portable [facility] [place] [address] [place] [address] XRay Report Signed Patient: Vishal Duke MR#: [id number] : 1960 Acct:[id number] Age/Sex: 59 / M ADM Date: 12/08/20 Loc: ER Room: Type: [facility] ER Attending Dr: Ordering Provider: Irwin [...] Biju Ag M.D.12/08/2020 11:02 AM Dictation Location: [place] [address] Transcribed By: [facility] 12/08/20 1102 Dictated By: Biju Ag MD 12/08/20 1059 Signed By: 12/08/20 1102 Normal [facility] TACROLIMUSon 12-04-2020 Tacrolimus (Bld) [Mass/Vol] 8.0 ng/mL Normal 5.0-20.0 [facility] Comment on above: Order Comment: Yes: Add to Previous draw if able Result Comment: The [employer] Tacrolimus assay is a delayed one-step immunoassay for the quantitative determination of tacrolimus in human whole blood using the chemiluminescent microparticle immunoassay (CMIA) technology with flexible assay protocols, referred to as Chemiflex. Performed By: #### 2 5508, 42329, 98431, 22729, 53027 #### [facility] [address] TROPONIN-Ion 12-04-2020 Troponin I.cardiac [Mass/Vol] 0.03 ng/mL Normal 0.00-0.04 [facility] Comment on above: Order Comment: No: D o not add to previous draw Pt in bath room askme to come back Result Comment: REFE RENCE RANGES: 0.00 - 0.04 ng/ml NORMAL 0.05 - 0.50 ng/ml INDETERMINATE > 0.50 ng/ml CONSISTENT WITH AN M.I. Performed By: #### 3 5200 #### [facility] [address] [facility]. [address] Order Comment: No: D o not add to previous draw Performed By: #### 2 5508, 72092, 29859, 26043, 53926 #### [facility] [address] Troponin I.cardiac [Mass/Vol] 0.03 ng/mL Normal 0.00-0.04 [facility] Comment on above: Result Comment: REFE RENCE RANGES: 0.00 - 0.04 ng/ml NORMAL 0.05 - 0.50 ng/ml INDETERMINATE > 0.50 ng/ml CONSISTENT WITH AN M.I. Performed By: #### 2 5508, 69999, 66469, 30759, 73048 #### [facility] [address] [facility] [address] ktx basic metabolic panelon 12-04-2020 Calcium [Mass/Vol] 8.9 mg/dL Normal 8.6-10.3 [facility] Comment on above: Performed By: #### 2 5508, 33462, 47353, 92834, 38500 #### [facility] [address] [place] [address], [facility] Chloride [Moles/Vol] 106 mmol/L Normal 98-107 [facility] Comment on above: Performed By: #### 2 5508, 67622, 25162, 46982, 86077 #### [facility] [address] [place] [address], [place] CO2 [Moles/Vol] 19 mmol/L Low 21-31 [facility] Comment on above: Performed By: #### 2 5508, 21548, 49387, 97826, 02438 #### [facility] [address] [place] [address], [place] Creatinine [Mass/Vol] 0.82 mg/dL Normal 0.70-1.30 [facility] Comment on above: Performed By: #### 2 5508, 47866, 68927, 01246, 77017 #### [facility] [address] [place] [address], [place] GFR/1.73 sq M.predicted among blacks MDRD (S/P/Bld) [Vol rate/Area] mL/min/{1.73_m2} Normal >60 [facility] Comment on above: Performed By: #### 2 5508, 21241, 50513, 56676, 55300 #### [facility] [address] [place] [address], [place] GFR/1.73 sq M.predicted among non-blacks MDRD (S/P/Bld) [Vol rate/Area] mL/min/{1.73_m2} Normal >60 [facility] Comment on above: Performed By: #### 2 5508, 56065, 59306, 69057, 53333 #### [facility] [address] [place] [address], [place] Glucose [Mass/Vol] 127 mg/dL High 70-100 [facility] Comment on above: Performed By: #### 2 5508, 79640, 39900, 33139, 34170 #### [facility] [address] [place] [address], [place] Potassium [Moles/Vol] 3.9 mmol/L Normal 3.5-5.1 [facility] Comment on above: Performed By: #### 2 5508, 44150, 88532, 60616, 04822 #### [facility] [address] [place] [address], [place] Sodium [Moles/Vol] 136 mmol/L Normal 136-145 [facility] Comment on above: Performed By: #### 2 5508, 25783, 31934, 28732, 74088 #### [facility] [address] [place] [address], [place] Urea nitrogen [Mass/Vol] 10 mg/dL Normal 7-25 [facility] Comment on above: Performed By: #### 2 5508, 62522, 98503, 92511, 32339 #### [facility] [address] [place] [address], [place] ktx cbc complete blood count on 12-04-2020 Erythrocyte distribution width (RBC) [Ratio] 14.6 % Normal 11.5-15.0 [facility] Comment on above: Performed By: #### 6 1405 #### [facility] [address] [place] [address], [place] Hematocrit (Bld) [Volume fraction] 38.7 % Low 39.0-50.0 [facility] Comment on above: Performed By: #### 6 1405 #### [facility] [address] [place] [address], [place] Hemoglobin (Bld) [Mass/Vol] 12.8 g/dL Low 13.0-17.0 [facility] Comment on above: Performed By: #### 6 1405 #### [facility] [address] [place] [address], [place] MCH (RBC) [Entitic mass] 31.3 pg Normal 27.0-33.0 [facility] Comment on above: Performed By: #### 6 1405 #### [facility] [address] [facility]. [address] MCHC (RBC) [Mass/Vol] 33.1 g/dL Normal 32.0-35.0 [facility] Comment on above: Performed By: #### 6 1405 #### [facility] [address] [facility] [place] [address], [facility] MCV (RBC) [Entitic vol] 94.6 fL Normal 82.0-98.0 [facility] Comment on above: Performed By: #### 6 1405 #### [facility] [address] Nucleated RBC/100 WBC (Bld) [Ratio] 0 % Normal 0-0 [facility] Comment on above: Performed By: #### 6 1405 #### [facility] [address] [facility]. [address] PLAT CNT 224 10*3/uL Normal 150-400 [facility] Comment on above: Performed By: #### 6 1405 #### [facility] [address] [facility] [place] [address], [facility] RBC (Bld) [#/Vol] 4.09 10*6/uL Low 4.20-5.70 [facility] Comment on above: Performed By: #### 6 1405 #### [facility] [address] [facility] [place] [address], [facility] WBC (Bld) [#/Vol] 12.30 10*3/uL High 4.00-10.60 [facility] Comment on above: Performed By: #### 6 1405 #### [facility] [address] [place] [address], [facility] ktx magnesium bloodon 2020 Magnesium [Mass/Vol] 1.6 mg/dL Low 1.9-2.7 [facility] Comment on above: Performed By: #### 2 5508, 09351, 94709, 91596, 70216 #### [facility] [address] [place] [address], [facility] ktx phosphoruson 12-04-2020 Phosphate [Mass/Vol] 2.4 mg/dL Low 2.5-5.0 [facility] Comment on above: Performed By: #### 2 5508, 78136, 41948, 24652, 93970 #### [facility] [address] [place] [address], [facility] TACROLIMUSon 12-03-2020 Tacrolimus (Bld) [Mass/Vol] 9.1 ng/mL Normal 5.0-20.0 [facility] Comment on above: Order Comment: Yes: Add to Previous draw if able Result Comment: The [employer] Tacrolimus assay is a delayed one-step immunoassay for the quantitative determination of tacrolimus in human whole blood using the chemiluminescent microparticle immunoassay (CMIA) technology with flexible assay protocols, referred to as Chemiflex. Performed By: #### 2 5508, 11772, 56304, 84805, 91797 #### [facility] [address] [place] [address], [facility] ktx basic metabolic panelon 12-03-2020 Calcium [Mass/Vol] 9.5 mg/dL Normal 8.6-10.3 [facility] Comment on above: Performed By: #### 2 5508, 19132, 51280, 90140, 26150 #### [facility] [address] [place] [address], [facility] Chloride [Moles/Vol] 102 mmol/L Normal 98-107 [facility] Comment on above: Performed By: #### 2 5508, 25901, 19251, 03285, 90686 #### [facility] [address] [place] [address], [place] CO2 [Moles/Vol] 22 mmol/L Normal 21-31 [facility] Comment on above: Performed By: #### 2 5508, 29158, 48712, 14416, 24661 #### [facility] [address] [place] [address], [place] Creatinine [Mass/Vol] 0.88 mg/dL Normal 0.70-1.30 [facility] Comment on above: Performed By: #### 2 5508, 95061, 30466, 56528, 00484 #### [facility] [address] [place] [address], [place] GFR/1.73 sq M.predicted among blacks MDRD (S/P/Bld) [Vol rate/Area] mL/min/{1.73_m2} Normal >60 [facility] Comment on above: Performed By: #### 2 5508, 29055, 91012, 48291, 09526 #### [facility] [address] [place] [address], [place] GFR/1.73 sq M.predicted among non-blacks MDRD (S/P/Bld) [Vol rate/Area] mL/min/{1.73_m2} Normal >60 [facility] Comment on above: Performed By: #### 2 5508, 99569, 67374, 96484, 50434 #### [facility] [address] [place] [address], [place] Glucose [Mass/Vol] 120 mg/dL High 70-100 [facility] Comment on above: Performed By: #### 2 5508, 27606, 99685, 76542, 63171 #### [facility] [address] [place] [address], [place] Potassium [Moles/Vol] 3.8 mmol/L Normal 3.5-5.1 [facility] Comment on above: Performed By: #### 2 5508, 14055, 48074, 91431, 07625 #### [facility] [address] [place] [address], [place] Sodium [Moles/Vol] 134 mmol/L Low 136-145 [facility] Comment on above: Performed By: #### 2 5508, 64423, 72991, 77194, 66171 #### [facility] [address] [place] [address], [facility] Urea nitrogen [Mass/Vol] 9 mg/dL Normal 7-25 [facility] Comment on above: Performed By: #### 2 5508, 20697, 10414, 10540, 21639 #### [facility] [address] [place] [address], [facility] ktx cbc complete blood count on 12-03-2020 Erythrocyte distribution width (RBC) [Ratio] 14.6 % Normal 11.5-15.0 [facility] Comment on above: Performed By: #### 6 1405 #### [facility] [address] Hematocrit (Bld) [Volume fraction] 40.4 % Normal 39.0-50.0 [facility] Comment on above: Performed By: #### 6 1405 #### [facility] [address] [facility] [place] [address], [facility] Hemoglobin (Bld) [Mass/Vol] 13.6 g/dL Normal 13.0-17.0 [facility] Comment on above: Performed By: #### 6 1405 #### [facility] [address] [facility] [place] [address], [facility] MCH (RBC) [Entitic mass] 31.1 pg Normal 27.0-33.0 [facility] Comment on above: Performed By: #### 6 1405 #### [facility] [address] [place] [address], [facility] MCHC (RBC) [Mass/Vol] 33.7 g/dL Normal 32.0-35.0 [facility] Comment on above: Performed By: #### 6 1405 #### [facility] [address] [place] [address], [facility] MCV (RBC) [Entitic vol] 92.4 fL Normal 82.0-98.0 [facility] Comment on above: Performed By: #### 6 1405 #### [facility] [address] [facility] [place] [address], [facility] Nucleated RBC/100 WBC (Bld) [Ratio] 0 % Normal 0-0 [facility] Comment on above: Performed By: #### 6 1405 #### [facility] [address] [facility] [place] [address], [facility] PLAT CNT 240 10*3/uL Normal 150-400 [facility] Comment on above: Performed By: #### 6 1405 #### [facility] [address] [facility] [place] [address], [facility] RBC (Bld) [#/Vol] 4.37 10*6/uL Normal 4.20-5.70 [facility] Comment on above: Performed By: #### 6 1405 #### [facility] [address] [facility] [place] [address], [facility] WBC (Bld) [#/Vol] 12.42 10*3/uL High 4.00-10.60 [facility] Comment on above: Performed By: #### 6 1405 #### [facility] [address] [facility] [place] [address], [facility] ktx magnesium bloodon 2020 Magnesium [Mass/Vol] 2.1 mg/dL Normal 1.9-2.7 [facility] Comment on above: Performed By: #### 2 5508, 22851, 86734, 38172, 42123 #### [facility] [address] [place] [address], [facility] ktx phosphoruson 12-03-2020 Phosphate [Mass/Vol] 3.3 mg/dL Normal 2.5-5.0 [facility] Comment on above: Performed By: #### 2 5508, 56877, 49512, 76583, 35398 #### [facility] [address] [place] [address], [place] BASIC METABOLIC PANELon 08- Calcium [Mass/Vol] 10.1 mg/dL Normal 8.6-10.3 [facility] Comment on above: Order Comment: No: D o not add to previous draw Performed By: #### 2 5508, 70284, 54848, 02574, 63434 #### [facility] [address] [place] [address], [place] Chloride [Moles/Vol] 97 mmol/L Low 98-107 [facility] Comment on above: Order Comment: No: D o not add to previous draw Performed By: #### 2 5508, 88474, 89047, 42774, 43948 #### [facility] [address] [place] [address], [place] CO2 [Moles/Vol] 27 mmol/L Normal 21-31 [facility] Comment on above: Order Comment: No: D o not add to previous draw Performed By: #### 2 5508, 52022, 66554, 47870, 35886 #### [facility] [address] [place] [address], [place] Creatinine [Mass/Vol] 1.12 mg/dL Normal 0.70-1.30 [facility] Comment on above: Order Comment: No: D o not add to previous draw Performed By: #### 2 5508, 42908, 39837, 96256, 07367 #### [facility] [address] [place] [address], [place] GFR/1.73 sq M.predicted among blacks MDRD (S/P/Bld) [Vol rate/Area] mL/min/{1.73_m2} Normal >60 [facility] Comment on above: Order Comment: No: D o not add to previous draw Performed By: #### 2 5508, 21143, 35666, 06922, 72641 #### [facility] [address] [place] [address], [place] GFR/1.73 sq M.predicted among non-blacks MDRD (S/P/Bld) [Vol rate/Area] mL/min/{1.73_m2} Normal >60 [facility] Comment on above: Order Comment: No: D o not add to previous draw Performed By: #### 2 5508, 51333, 02250, 68685, 41527 #### [facility] [address] [place] [address], [place] Glucose [Mass/Vol] 124 mg/dL High 70-100 [facility] Comment on above: Order Comment: No: D o not add to previous draw Performed By: #### 2 5508, 25169, 53295, 75879, 88987 #### [facility] [address] [place] [address], [place] Potassium [Moles/Vol] 4.4 mmol/L Normal 3.5-5.1 [facility] Comment on above: Order Comment: No: D o not add to previous draw Performed By: #### 2 5508, 78208, 07414, 06095, 02121 #### [facility] [address] [place] [address], [place] Sodium [Moles/Vol] 133 mmol/L Low 136-145 [facility] Comment on above: Order Comment: No: D o not add to previous draw Performed By: #### 2 5508, 60562, 81798, 76178, 07631 #### [facility] [address] [place] [address], [place] Urea nitrogen [Mass/Vol] 17 mg/dL Normal 7-25 [facility] Comment on above: Order Comment: No: D o not add to previous draw Performed By: #### 2 5508, 20742, 41537, 38320, 41318 #### [facility] [address] CBC COMPLETE BLOOD COUNTon 0 12-02-2020 Erythrocyte distribution width (RBC) [Ratio] 14.7 % Normal 11.5-15.0 [facility] Comment on above: Order Comment: No: D o not add to previous draw Performed By: #### 6 1405 #### [facility] [address] [place] [address], [facility] Hematocrit (Bld) [Volume fraction] 43.7 % Normal 39.0-50.0 [facility] Comment on above: Order Comment: No: D o not add to previous draw Performed By: #### 6 1405 #### [facility] [address] Hemoglobin (Bld) [Mass/Vol] 14.1 g/dL Normal 13.0-17.0 [facility] Comment on above: Order Comment: No: D o not add to previous draw Performed By: #### 6 1405 #### [facility] [address] [facility] [place] [place] [address], [facility] MCH (RBC) [Entitic mass] 30.8 pg Normal 27.0-33.0 [facility] Comment on above: Order Comment: No: D o not add to previous draw Performed By: #### 6 1405 #### [facility] [address] [facility] [place] [address], [facility] MCHC (RBC) [Mass/Vol] 32.3 g/dL Normal 32.0-35.0 [facility] Comment on above: Order Comment: No: D o not add to previous draw Performed By: #### 6 1405 #### [facility] [address] [facility] [place] [address], [facility] MCV (RBC) [Entitic vol] 95.4 fL Normal 82.0-98.0 [facility] Comment on above: Order Comment: No: D o not add to previous draw Performed By: #### 6 1405 #### [facility] [address] [place] [address], [facility] Nucleated RBC/100 WBC (Bld) [Ratio] 0 % Normal 0-0 [facility] Comment on above: Order Comment: No: D o not add to previous draw Performed By: #### 6 1405 #### [facility] [address] [place] [address], [facility] PLAT CNT 257 10*3/uL Normal 150-400 [facility] Comment on above: Order Comment: No: D o not add to previous draw Performed By: #### 6 1405 #### [facility] [address] [facility] [place] [address], [facility] RBC (Bld) [#/Vol] 4.58 10*6/uL Normal 4.20-5.70 [facility] Comment on above: Order Comment: No: D o not add to previous draw Performed By: #### 6 1405 #### [facility] [address] [facility] [address], [facility] WBC (Bld) [#/Vol] 13.96 10*3/uL High 4.00-10.60 [facility] Comment on above: Order Comment: No: D o not add to previous draw Performed By: #### 6 1405 #### [facility] [address] [place] [address], [facility] MAGNESIUM BLOODon 12-02-2020 Magnesium [Mass/Vol] 1.5 mg/dL Low 1.9-2.7 [facility] Comment on above: Order Comment: No: D o not add to previous draw Performed By: #### 2 5508, 28079, 31442, 79172, 92475 #### [facility] [address] [place] [address], [facility] PHOSPHORUS BLOODon Phosphate [Mass/Vol] 3.8 mg/dL Normal 2.5-5.0 [facility] Comment on above: Order Comment: No: D o not add to previous draw Performed By: #### 2 5508, 01235, 57379, 42423, 07930 #### [facility] [address] PROTHROMBIN TIMEon INR Coag (PPP) [Relative time] 1.12 {INR} Normal 0.91-1.16 [facility] Comment on above: Order Comment: No: [...] CHEST 1995;[id number]. Performed By: #### 5 6101 ####[facility] [address] PT Coag (PPP) [Time] 14.4 s Normal 12.3-14.8 [facility] Comment on above: Order Comment: No: D o not add to previous draw Result Comment: ALL RESULTS MUST BE INTERPRETED WITH RESPECT TO BLOOD DRAWING ARTIFACT OR DILUTION ERROR OF ANTICOAGULANT AT THE TIME OF SAMPLING. Performed By: #### 5 6101 ####[facility] [place] [address], [facility] CBC W/DIFFon 08-17-2021 ABS IMM GRANS 0.1 10*3/uL Normal 0.0-0.2 [facility] Comment on above: Performed By: #### 6 1405 #### [facility] [address] [place] [address], [facility] ABS NEUTROPHILS 12.0 10*3/uL High 1.6-7.6 [facility] Comment on above: Performed By: #### 6 1405 #### [facility] [address] [place] [address], [facility] Basophils (Bld) [#/Vol] 0.1 10*3/uL Normal 0.0-0.2 [facility] Comment on above: Performed By: #### 6 1405 #### [facility] [address] [place] [address], [facility] Basophils/100 WBC (Bld) 0.6 % Normal 0.0-1.0 [facility] Comment on above: Performed By: #### 6 1405 #### [facility] [address] [place] [address], [facility] Eosinophils (Bld) [#/Vol] 0.1 10*3/uL Normal 0.0-0.5 [facility] Comment on above: Performed By: #### 6 1405 #### [facility] [address] [place] [address], [facility] Eosinophils/100 WBC (Bld) 0.7 % Normal 0.0-6.0 [facility] Comment on above: Performed By: #### 6 1405 #### [facility] [address] Erythrocyte distribution width (RBC) [Ratio] 14.7 % Normal 11.5-15.0 [facility] Comment on above: Performed By: #### 6 1405 #### [facility] [address] [place] [address], [facility] Hematocrit (Bld) [Volume fraction] 47.3 % Normal 39.0-50.0 [facility] Comment on above: Performed By: #### 6 1405 #### [facility] [address] [facility] [place] [address], [facility] Hemoglobin (Bld) [Mass/Vol] 15.5 g/dL Normal 13.0-17.0 [facility] Comment on above: Performed By: #### 6 1405 #### [facility] [address] [facility] [place] [address], [facility] IMMATURE GRANS 0.7 % Normal 0.0-1.0 [facility] Comment on above: Performed By: #### 6 1405 #### [facility] [address] [facility] [place] [address], [facility] Lymphocytes (Bld) [#/Vol] 0.6 10*3/uL Low 1.2-4.0 [facility] Comment on above: Performed By: #### 6 1405 #### [facility] [address] [place] [address], [facility] Lymphocytes/100 WBC (Bld) 4.3 % Low 20.0-45.0 [facility] Comment on above: Performed By: #### 6 1405 #### [facility] [address] [facility] [place] [address], [facility] MCH (RBC) [Entitic mass] 31.0 pg Normal 27.0-33.0 [facility] Comment on above: Performed By: #### 6 1405 #### [facility] [address] [facility] [place] [address], [facility] MCHC (RBC) [Mass/Vol] 32.8 g/dL Normal 32.0-35.0 [facility] Comment on above: Performed By: #### 6 1405 #### [facility] [address] [place] [address], [facility] MCV (RBC) [Entitic vol] 94.6 fL Normal 82.0-98.0 [facility] Comment on above: Performed By: #### 6 1405 #### [facility] [address] [place] [address], [facility] Monocytes (Bld) [#/Vol] 1.0 10*3/uL Normal 0.1-1.0 [facility] Comment on above: Performed By: #### 6 1405 #### [facility] [address] MONOS 7.3 % Normal 5.0-12.0 [facility] Comment on above: Performed By: #### 6 1405 #### [facility] [address] Neutrophils/100 WBC (Bld) 86.4 % High 40.0-72.0 [facility] Comment on above: Performed By: #### 6 1405 #### [facility] [address] Nucleated RBC/100 WBC (Bld) [Ratio] 0 % Normal 0-0 [facility] Comment on above: Performed By: #### 6 1405 #### [facility] [address] [place] [address], [facility] PLAT CNT 289 10*3/uL Normal 150-400 [facility] Comment on above: Performed By: #### 6 1405 #### [facility] [address] [place] [address], [facility] RBC (Bld) [#/Vol] 5.00 10*6/uL Normal 4.20-5.70 [facility] Comment on above: Performed By: #### 6 1405 #### [facility] [address] [place] [address], [facility] WBC (Bld) [#/Vol] 13.82 10*3/uL High 4.00-10.60 [facility] Comment on above: Performed By: #### 6 1405 #### [facility] [address] [place] [address], [facility] COMP METABOLIC PANELon 12-01 Albumin [Mass/Vol] 4.7 g/dL Normal 3.5-5.7 [facility] Comment on above: Performed By: #### 2 5508, 90100, 90626, 84490, 40223 #### [facility] [address] [place] [address], [place] ALKALINE PHOSPH 73 IU/L Normal 34-104 [facility] Comment on above: Performed By: #### 2 5508, 43690, 16829, 76952, 94435 #### [facility] [address] [place] [address], [place] ALT [Catalytic activity/Vol] 27 U/L Normal 7-52 [facility] Comment on above: Performed By: #### 2 5508, 38797, 59647, 36371, 75463 #### [facility] [address] [place] [address], [place] AST [Catalytic activity/Vol] 21 U/L Normal 13-39 [facility] Comment on above: Performed By: #### 2 5508, 27463, 32551, 33791, 08775 #### [facility] [address] [place] [address], [place] Bilirubin [Mass/Vol] 0.6 mg/dL Normal 0.3-1.0 [facility] Comment on above: Performed By: #### 2 5508, 49425, 11200, 45338, 69635 #### [facility] [address] [place] [address], [place] Calcium [Mass/Vol] 9.9 mg/dL Normal 8.6-10.3 [facility] Comment on above: Performed By: #### 2 5508, 13946, 35633, 93903, 39436 #### [facility] [address] [place] [address], [facility] Chloride [Moles/Vol] 104 mmol/L Normal 98-107 [facility] Comment on above: Performed By: #### 2 5508, 25031, 21511, 22371, 79133 #### [facility] [address] [place] [address], [facility] CO2 [Moles/Vol] 25 mmol/L Normal 21-31 [facility] Comment on above: Performed By: #### 2 5508, 96355, 99659, 75127, 15913 #### [facility] [address] [place] [address], [facility] Creatinine [Mass/Vol] 1.40 mg/dL High 0.70-1.30 [facility] Comment on above: Performed By: #### 2 5508, 08263, 23218, 42252, 12051 #### [facility] [address] [place] [address], [facility] eGFR- non- 52 ml/min/1.73sq m Abnormal >60 [facility] Comment on above: Performed By: #### 2 5508, 99272, 30242, 72003, 77609 #### [facility] [address] [place] [address], [facility] GFR/1.73 sq M.predicted among blacks MDRD (S/P/Bld) [Vol rate/Area] mL/min/{1.73_m2} Normal >60 [facility] Comment on above: Performed By: #### 2 5508, 99950, 44907, 73020, 53411 #### [facility] [address] [place] [address], [facility] Glucose [Mass/Vol] 133 mg/dL High 70-100 [facility] Comment on above: Performed By: #### 2 5508, 92109, 23542, 86186, 63946 #### [facility] [address] [place] [address], [facility] Potassium [Moles/Vol] 4.8 mmol/L Normal 3.5-5.1 [facility] Comment on above: Performed By: #### 2 5508, 49644, 02793, 28743, 09429 #### [facility] [address] [place] [address], [facility] Protein [Mass/Vol] 7.1 g/dL Normal 6.0-8.3 [facility] Comment on above: Performed By: #### 2 5508, 56902, 72742, 88522, 04701 #### [facility] [address] [place] [address], [facility] Sodium [Moles/Vol] 137 mmol/L Normal 136-145 [facility] Comment on above: Performed By: #### 2 5508, 65887, 51148, 71735, 86602 #### [facility] [address] [place] [address], [facility] Urea nitrogen [Mass/Vol] 19 mg/dL Normal 7-25 [facility] Comment on above: Performed By: #### 2 5508, 38235, 17845, 14894, 25739 #### [facility] [address] [facility] [place] [place] [address], [facility] CT ABDOMEN AND PELVIS WO CON TRASTon 12-01-2020 CT ABDOMEN AND PELVIS WO CONTRAST [facility] Department of Radiology [address] [place] [id number] == Patient Name: VISHAL DUKE : 1960 Sex: M Age: Race: White Pt. Location: [facility] Patient Status: E Ordered Date: 12/01/2020 9:30:00 [...] Otherwise no change in appearance of the iqugmiut kidneys. No evidence of cyst rupture. Right [...] achievable. Electronically signed: José Herman. Transcribed by: [email or web address], User Resident: Electronically Signed by: JOSÉ HERMAN @ 12/01/2020 11:45 AM Normal [facility] Comment on above: Order Comment: No: D o not add to previous draw CV'D BY IMM LAB AT 1240 LIPASE BLOODon 12-01-2020 LIPASE 40 Units/L Normal [facility] Comment on above: Performed By: #### 2 5508, 94575, 73252, 03261, 83022 #### [facility] [address] [place] [address], [place] URINALYSIS REFLEXon 12-02-19 21 Appearance (U) SL CLOUDY Abnormal CLEAR [facility] Comment on above: Order Comment: Yes: Add to Previous draw if able Performed By: #### 2 5508, 88096, 85242, 67208, 34061 #### [facility] [address] [place] [address], [place] Bilirubin Ql (U) Negative Normal NEGATIVE [facility] Comment on above: Order Comment: Yes: Add to Previous draw if able Performed By: #### 2 5508, 43283, 17207, 56557, 60837 #### [facility] [address] [place] [address], [place] Color (U) TINO Abnormal YELLOW [facility] Comment on above: Order Comment: Yes: Add to Previous draw if able Performed By: #### 2 5508, 40977, 22852, 11534, 98047 #### [facility] [address] [place] [address], [facility] EPIS NONE SEEN Normal FEW,OCC,NONE SEEN [facility] Comment on above: Order Comment: Yes: Add to Previous draw if able Performed By: #### 2 5508, 64324, 52314, 25916, 26926 #### [facility] [address] [place] [address], [facility] Glucose Ql (U) Negative Normal NEGATIVE [facility] Comment on above: Order Comment: Yes: Add to Previous draw if able Performed By: #### 2 5508, 83789, 99467, 60927, 72354 #### [facility] [address] [place] [address], [facility] Hemoglobin Ql (U) Negative Normal NEGATIVE [facility] Comment on above: Order Comment: Yes: Add to Previous draw if able Performed By: #### 2 5508, 21814, 49756, 27493, 52450 #### [facility] [address] [place] [address], [place] KETONE Negative Normal NEGATIVE [facility] Comment on above: Order Comment: Yes: Add to Previous draw if able Performed By: #### 2 5508, 63738, 25501, 29181, 01912 #### [facility] [address] [place] [address], [place] LEUK MARIA A Negative Normal NEGATIVE [facility] Comment on above: Order Comment: Yes: Add to Previous draw if able Performed By: #### 2 5508, 83559, 49516, 92971, 21199 #### [facility] [address] [place] [address], [place] MUCUS THREADS MOD Abnormal NONE SEEN [facility] Comment on above: Order Comment: Yes: Add to Previous draw if able Performed By: #### 2 5508, 17204, 04259, 52252, 10822 #### [facility] [address] [place] [address], [facility] Nitrite Ql (U) Negative Normal NEGATIVE [facility] Comment on above: Order Comment: Yes: Add to Previous draw if able Performed By: #### 2 5508, 21342, 39943, 93621, 46409 #### [facility] [address] [place] [address], [facility] pH (U) 5.0 [pH] Normal 5.0-8.0 [facility] Comment on above: Order Comment: Yes: Add to Previous draw if able Performed By: #### 2 5508, 29745, 88434, 20850, 57816 #### [facility] [address] [place] [address], [facility] Protein Ql (U) 30 mg/dL Abnormal NEGATIVE [facility] Comment on above: Order Comment: Yes: Add to Previous draw if able Performed By: #### 2 5508, 87271, 94905, 75845, 88205 #### [facility] [address] [place] [address], [facility] RBC 0-2 Abnormal NONE SEEN [facility] Comment on above: Order Comment: Yes: Add to Previous draw if able Performed By: #### 2 5508, 36502, 94939, 24160, 40858 #### [facility] [address] [place] [address], [facility] SPEC GRAV 1.026 High 1.015-1.020 [facility] Comment on above: Order Comment: Yes: Add to Previous draw if able Performed By: #### 2 5508, 43786, 01519, 29620, 50884 #### [facility] [address] [place] [address], [facility] WBC UA 0-2 Abnormal NONE SEEN [facility] Comment on above: Order Comment: Yes: Add to Previous draw if able Performed By: #### 2 5508, 90391, 37115, 63482, 36856 #### [facility] [address] [facility]. [address] Pulmonary Functionon 11-29- 021 Pulmonary Function MR #: [id number] [facility] PT. Name: Vishal Duke Date: 11/27/2020 [...] Syed MD Date Trans: 11/29/2020 01:09 P/ [id number] cc: Rosa M Gonzales M.D. [address] [place] [id number] Normal [facility] ARTERIAL BLOOD GAS W/COOXon 11-27-2020 BASE EXCESS 3 mmol/L Normal -2-3 [facility] Comment on above: Performed By: #### 2 5508, 72044, 46176, 64132, 93712 #### [facility] [address] [place] [address], [place] COHB 1.5 % Normal 0.0-1.5 [facility] Comment on above: Performed By: #### 2 5508, 49030, 26432, 69033, 24654 #### [facility] [address] [place] [address], [place] [employer] ROOM AIR Normal [facility] Comment on above: Performed By: #### 2 5508, 31062, 25191, 93761, 55233 #### [facility] [address] [place] [address], [place] FIO2 0 % Normal [facility] Comment on above: Performed By: #### 2 5508, 70168, 26944, 28959, 09081 #### [facility] [address] [place] [address], [place] HCO3 (Bld) [Moles/Vol] 26 mmol/L Normal 21-28 [facility] Comment on above: Performed By: #### 2 5508, 26939, 24284, 31930, 51230 #### [facility] [address] [place] [address], [place] METHB 1.2 % Normal 0.0-1.5 [facility] Comment on above: Performed By: #### 2 5508, 90730, 39795, 17732, 43801 #### [facility] [address] [place] [address], [place] Oxygen (Bld) [Partial pressure] 93 mm[Hg] Normal 83-108 [facility] Comment on above: Performed By: #### 2 5508, 06065, 65825, 46795, 70612 #### [facility] [address] [place] [address], [facility] Oxygen saturation in Blood 95.6 % Normal 94.0-97.0 [facility] Comment on above: Performed By: #### 2 5508, 90541, 07309, 67623, 30168 #### [facility] [address] [place] [address], [facility] PCO2 35 mmHg Normal 35-45 [facility] Comment on above: Performed By: #### 2 5508, 23549, 04287, 86098, 75168 #### [facility] [address] [place] [address], [facility] pH (Bld) 7.48 [pH] High 7.35-7.45 [facility] Comment on above: Performed By: #### 2 5508, 28735, 35314, 86529, 13586 #### [facility] [address] [place] [address], [facility] THB 15.4 g/dL Normal 12.0-16.3 [facility] Comment on above: Performed By: #### 2 5508, 99860, 34613, 38545, 92261 #### [facility] [address] [place] [address], [facility] CREATININE BLOODon 1 Creatinine [Mass/Vol] 1.10 mg/dL Normal 0.70-1.30 [facility] Comment on above: Order Comment: No: D o not add to previous draw Performed By: #### 2 5508, 71397, 13651, 88942, 08544 #### [facility] [address] [place] [address], [facility] GFR/1.73 sq M.predicted among blacks MDRD (S/P/Bld) [Vol rate/Area] mL/min/{1.73_m2} Normal >60 [facility] Comment on above: Order Comment: No: D o not add to previous draw Performed By: #### 2 5508, 43612, 03486, 92222, 66515 #### [facility] [address] [facility] [address], [facility] GFR/1.73 sq M.predicted among non-blacks MDRD (S/P/Bld) [Vol rate/Area] mL/min/{1.73_m2} Normal >60 [facility] Comment on above: Order Comment: No: D o not add to previous draw Performed By: #### 2 5508, 43726, 06758, 17787, 12033 #### [facility] [address] [facility] [address], [facility] Cardiovascular Lab Reporton 10-29-2020 Cardiovascular Lab Report [facility] Patient Name: [facility] Vishal Medeiros MR #: [id number] Department of Physician: Domo Mejia M.D. Division of Service Date: 10/29/2020 Cardiology Birthdate: 1960 Adult Cardiovascular Room #: 3AB [id number] Services [facility] [address] [address] Cardiovascular Laboratory Report FINAL IMPRESSIONS: 1. 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 6. Will consider elective revascularization of the right coronary artery should the patient continue to experience significant exertional angina; this will be a high risk procedure given tortuosity, calcification and ectasia. 7. Follow up with Dr. Chester in the [place] office in the next 1 to 2 [...] artery, failed attempt at deployment of a 6-Honduran MynxGrip closure device. METHODS: After risks, benefits, and alternatives were explained, written informed consent was obtained. The patient was prepped and draped in usual sterile fashion over both groins. Using 1% lidocaine solution, local infiltration anesthesia was achieved. Using a micropuncture kit access to the right common femoral artery was obtained. A 6-Honduran x 11 cm sheath was inserted without difficulty. Baseline femoral angiography was performed. Bilateral selective coronary angiography was performed using JL4 and JR4 catheters. Angiography of internal mammary artery graft was performed using a 6-Honduran IM catheter. Limited angiography of the left subclavian was performed after retracting the catheter into the artery. After reviewing the images, it was elected to proceed with an interventional procedure. A 6-Honduran XB3.5 guide catheter was advanced over J-wire [...] pressure to achieve optimal hemostasis once a 6-Honduran MynxGrip closure device failed to deploy. Overall, [...] mammar (more content not included)... Normal [facility] BASIC METABOLIC PANELon 05-0 Calcium [Mass/Vol] 8.1 mg/dL Low 8.6-10.3 [facility] Comment on above: Order Comment: Yes: Add to Previous draw if able Performed By: #### 2 5508, 19025, 59733, 24287, 32235 #### [facility] [address] [place] [address], [facility] Chloride [Moles/Vol] 103 mmol/L Normal 98-107 [facility] Comment on above: Order Comment: Yes: Add to Previous draw if able Performed By: #### 2 5508, 39800, 97347, 25717, 42040 #### [facility] [address] [place] [address], [place] CO2 [Moles/Vol] 25 mmol/L Normal 21-31 [facility] Comment on above: Order Comment: Yes: Add to Previous draw if able Performed By: #### 2 5508, 89687, 97397, 18180, 39000 #### [facility] [address] [place] [address], [place] Creatinine [Mass/Vol] 0.88 mg/dL Normal 0.70-1.30 [facility] Comment on above: Order Comment: Yes: Add to Previous draw if able Performed By: #### 2 5508, 83916, 51619, 34110, 11519 #### [facility] [address] [place] [address], [place] GFR/1.73 sq M.predicted among blacks MDRD (S/P/Bld) [Vol rate/Area] mL/min/{1.73_m2} Normal >60 [facility] Comment on above: Order Comment: Yes: Add to Previous draw if able Performed By: #### 2 5508, 07453, 98967, 78779, 67068 #### [facility] [address] [place] [address], [place] GFR/1.73 sq M.predicted among non-blacks MDRD (S/P/Bld) [Vol rate/Area] mL/min/{1.73_m2} Normal >60 [facility] Comment on above: Order Comment: Yes: Add to Previous draw if able Performed By: #### 2 5508, 35330, 03315, 03581, 48958 #### [facility] [address] [place] [address], [place] Glucose [Mass/Vol] 119 mg/dL High 70-100 [facility] Comment on above: Order Comment: Yes: Add to Previous draw if able Performed By: #### 2 5508, 98068, 44213, 34588, 13221 #### [facility] [address] [place] [address], [place] Potassium [Moles/Vol] 3.6 mmol/L Normal 3.5-5.1 [facility] Comment on above: Order Comment: Yes: Add to Previous draw if able Performed By: #### 2 5508, 95097, 61436, 62290, 38485 #### [facility] [address] [place] [address], [place] Sodium [Moles/Vol] 133 mmol/L Low 136-145 [facility] Comment on above: Order Comment: Yes: Add to Previous draw if able Performed By: #### 2 5508, 69568, 44446, 50285, 87492 #### [facility] [address] [place] [address], [place] Urea nitrogen [Mass/Vol] 17 mg/dL Normal 7-25 [facility] Comment on above: Order Comment: Yes: Add to Previous draw if able Performed By: #### 2 5508, 21753, 12548, 93843, 20132 #### [facility] [address] [place] [address], [place] CBC COMPLETE BLOOD COUNTon - Erythrocyte distribution width (RBC) [Ratio] 13.3 % Normal 11.5-15.0 [facility] Comment on above: Order Comment: No: D o not add to previous draw Performed By: #### 6 1405 #### [facility] [address] [place] [address], [place] Hematocrit (Bld) [Volume fraction] 47.6 % Normal 39.0-50.0 [facility] Comment on above: Order Comment: No: D o not add to previous draw Performed By: #### 6 1405 #### [facility] [address] [place] [address], [place] Hemoglobin (Bld) [Mass/Vol] 15.9 g/dL Normal 13.0-17.0 [facility] Comment on above: Order Comment: No: D o not add to previous draw Performed By: #### 6 1405 #### [facility] [address] [place] [address], [place] MCH (RBC) [Entitic mass] 29.1 pg Normal 27.0-33.0 [facility] Comment on above: Order Comment: No: D o not add to previous draw Performed By: #### 6 1405 #### [facility] [address] [place] [address], [place] MCHC (RBC) [Mass/Vol] 33.4 g/dL Normal 32.0-35.0 [facility] Comment on above: Order Comment: No: D o not add to previous draw Performed By: #### 6 1405 #### [facility] [address] [place] [address], [facility] MCV (RBC) [Entitic vol] 87.2 fL Normal 82.0-98.0 [facility] Comment on above: Order Comment: No: D o not add to previous draw Performed By: #### 6 1405 #### [facility] [address] [place] [address], [facility] Nucleated RBC/100 WBC (Bld) [Ratio] 0 % Normal 0-0 [facility] Comment on above: Order Comment: No: D o not add to previous draw Performed By: #### 6 1405 #### [facility] [address] [place] [address], [facility] PLAT CNT 306 10*3/uL Normal 150-400 [facility] Comment on above: Order Comment: No: D o not add to previous draw Performed By: #### 6 1405 #### [facility] [address] [place] [address], [facility] RBC (Bld) [#/Vol] 5.46 10*6/uL Normal 4.20-5.70 [facility] Comment on above: Order Comment: No: D o not add to previous draw Performed By: #### 6 1405 #### [facility] [address] [place] [address], [place] WBC (Bld) [#/Vol] 10.07 10*3/uL Normal 4.00-10.60 [facility] Comment on above: Order Comment: No: D o not add to previous draw Performed By: #### 6 1405 #### [facility] [address] [place] [address], [facility] PORTABLE CHEST 1 VIEWon 05-0 PORTABLE CHEST 1 VIEW [facility] Department of Radiology [address] [place] [address] == Patient Name: VISHAL DUKE : 1960 Sex: M Age: Race: White Pt. Location: [id number] Patient Status: I Ordered Date: 08/19/2020 6:00:00 [...] right. Electronically signed: Dariela Vincent. Transcribed by: [email or web address], User Resident: Electronically Signed by: DARIELA VINCENT @ 08/19/2020 10:20 AM Normal [facility] Comment on above: Order Comment: No: D o not add to previous draw CV'D BY [facility] AT 1240 TACROLIMUSon 08-19-2020 Tacrolimus (Bld) [Mass/Vol] 8.5 ng/mL Normal 5.0-20.0 [facility] Comment on above: Order Comment: No: D o not add to previous draw Result Comment: The [employer] Tacrolimus assay is a delayed one-step immunoassay for the quantitative determination of tacrolimus in human whole blood using the chemiluminescent microparticle immunoassay (CMIA) technology with flexible assay protocols, referred to as Chemiflex. Performed By: #### 2 5508, 56988, 04610, 61252, 00204 #### [facility] [address] [place] [address], [facility] BASIC METABOLIC PANELon Calcium [Mass/Vol] 8.8 mg/dL Normal 8.6-10.3 [facility] Comment on above: Order Comment: No: D o not add to previous draw Pt in bath room askme to come back Performed By: #### 3 5200 #### [facility] [address] [place] [address], [place] Chloride [Moles/Vol] 100 mmol/L Normal 98-107 [facility] Comment on above: Order Comment: No: D o not add to previous draw Pt in bath room askme to come back Performed By: #### 3 5200 #### [facility] [address] [place] [address], [place] CO2 [Moles/Vol] 28 mmol/L Normal 21-31 [facility] Comment on above: Order Comment: No: D o not add to previous draw Pt in bath room askme to come back Performed By: #### 3 5200 #### [facility] [address] [place] [address], [place] Creatinine [Mass/Vol] 0.87 mg/dL Normal 0.70-1.30 [facility] Comment on above: Order Comment: No: D o not add to previous draw Pt in bath room askme to come back Performed By: #### 3 5200 #### [facility] [address] [place] [address], [facility] GFR/1.73 sq M.predicted among blacks MDRD (S/P/Bld) [Vol rate/Area] mL/min/{1.73_m2} Normal >60 [facility] Comment on above: Order Comment: No: D o not add to previous draw Pt in bath room askme to come back Performed By: #### 3 5200 #### [facility] [address] [place] [address], [place] GFR/1.73 sq M.predicted among non-blacks MDRD (S/P/Bld) [Vol rate/Area] mL/min/{1.73_m2} Normal >60 [facility] Comment on above: Order Comment: No: D o not add to previous draw Pt in bath room askme to come back Performed By: #### 3 5200 #### [facility] [address] [place] [address], [place] Glucose [Mass/Vol] 110 mg/dL High 70-100 [facility] Comment on above: Order Comment: No: D o not add to previous draw Pt in bath room askme to come back Performed By: #### 3 5200 #### [facility] [address] [place] [address], [place] Potassium [Moles/Vol] 3.7 mmol/L Normal 3.5-5.1 [facility] Comment on above: Order Comment: No: D o not add to previous draw Pt in bath room askme to come back Performed By: #### 3 5200 #### [facility] [address] [place] [address], [place] Sodium [Moles/Vol] 137 mmol/L Normal 136-145 [facility] Comment on above: Order Comment: No: D o not add to previous draw Pt in bath room askme to come back Performed By: #### 3 5200 #### [facility] [address] [place] [address], [place] Urea nitrogen [Mass/Vol] 18 mg/dL Normal 7-25 [facility] Comment on above: Order Comment: No: D o not add to previous draw Pt in bath room askme to come back Performed By: #### 3 5200 #### [facility] [address] [place] [address], [facility] TACROLIMUSon 08-17-2020 Tacrolimus (Bld) [Mass/Vol] 4.0 ng/mL Low 5.0-20.0 [facility] Comment on above: Order Comment: Unkno wn Result Comment: The [employer] Tacrolimus assay is a delayed one-step immunoassay for the quantitative determination of tacrolimus in human whole blood using the chemiluminescent microparticle immunoassay (CMIA) technology with flexible assay protocols, referred to as Chemiflex. Performed By: #### 2 5508, 49414, 01662, 49866, 62590 #### [facility] [address] [place] [address], [facility] BASIC METABOLIC PANELon Calcium [Mass/Vol] 8.3 mg/dL Low 8.6-10.3 [facility] Comment on above: Order Comment: Yes: Add to Previous draw if able Performed By: #### 2 5508, 72072, 77977, 34775, 41743 #### [facility] [address] [place] [address], [facility] Chloride [Moles/Vol] 104 mmol/L Normal 98-107 [facility] Comment on above: Order Comment: Yes: Add to Previous draw if able Performed By: #### 2 5508, 72317, 67416, 10329, 13641 #### [facility] [address] [place] [address], [place] CO2 [Moles/Vol] 24 mmol/L Normal 21-31 [facility] Comment on above: Order Comment: Yes: Add to Previous draw if able Performed By: #### 2 5508, 90114, 09733, 43339, 50097 #### [facility] [address] [place] [address], [place] Creatinine [Mass/Vol] 0.82 mg/dL Normal 0.70-1.30 [facility] Comment on above: Order Comment: Yes: Add to Previous draw if able Performed By: #### 2 5508, 51796, 38731, 19399, 47642 #### [facility] [address] [place] [address], [place] GFR/1.73 sq M.predicted among blacks MDRD (S/P/Bld) [Vol rate/Area] mL/min/{1.73_m2} Normal >60 [facility] Comment on above: Order Comment: Yes: Add to Previous draw if able Performed By: #### 2 5508, 02559, 38890, 67544, 19322 #### [facility] [address] [place] [address], [facility] GFR/1.73 sq M.predicted among non-blacks MDRD (S/P/Bld) [Vol rate/Area] mL/min/{1.73_m2} Normal >60 [facility] Comment on above: Order Comment: Yes: Add to Previous draw if able Performed By: #### 2 5508, 44571, 82597, 91192, 35248 #### [facility] [address] [place] [address], [place] Glucose [Mass/Vol] 114 mg/dL High 70-100 [facility] Comment on above: Order Comment: Yes: Add to Previous draw if able Performed By: #### 2 5508, 61755, 38591, 69672, 19983 #### [facility] [address] [place] [address], [place] Potassium [Moles/Vol] 4.1 mmol/L Normal 3.5-5.1 [facility] Comment on above: Order Comment: Yes: Add to Previous draw if able Performed By: #### 2 5508, 99005, 03132, 72937, 55395 #### [facility] [address] [place] [address], [place] Sodium [Moles/Vol] 135 mmol/L Low 136-145 [facility] Comment on above: Order Comment: Yes: Add to Previous draw if able Performed By: #### 2 5508, 18705, 66233, 85357, 56224 #### [facility] [address] Urea nitrogen [Mass/Vol] 24 mg/dL Normal 7-25 [facility] Comment on above: Order Comment: Yes: Add to Previous draw if able Performed By: #### 2 5508, 39157, 77569, 09665, 90523 #### [facility] [address] MAGNESIUM BLOODon 08-16-2020 Magnesium [Mass/Vol] 1.9 mg/dL Normal 1.9-2.7 [facility] Comment on above: Order Comment: No: D o not add to previous draw Performed By: #### 4 1000, 82281, 12299 ####[facility] [place] [address], [facility] PHOSPHORUS BLOODon Phosphate [Mass/Vol] 3.1 mg/dL Normal 2.5-5.0 [facility] Comment on above: Order Comment: No: D o not add to previous draw Performed By: #### 4 1000, 44057, 37353 ####[facility] [place] [address], [facility] TACROLIMUSon 08-16-2020 Tacrolimus (Bld) [Mass/Vol] 3.5 ng/mL Low 5.0-20.0 [facility] Comment on above: Order Comment: Unkno wn Result Comment: The [employer] Tacrolimus assay is a delayed one-step immunoassay for the quantitative determination of tacrolimus in human whole blood using the chemiluminescent microparticle immunoassay (CMIA) technology with flexible assay protocols, referred to as Chemiflex. Performed By: #### 2 5508, 00622, 75445, 18945, 47736 #### [facility] [address] [place] [address], [facility] C REACTIVE PROTEINon 021 CRP [Mass/Vol] 20.9 mg/L High 0.0-7.0 [facility] Comment on above: Order Comment: Yes: Add to Previous draw if able Performed By: #### 2 5508, 25259, 58812, 13410, 20929 #### [facility] [address] [facility] [place] [address], [facility] CPKon 08-15-2020 CK [Catalytic activity/Vol] 38 U/L Normal 30-223 [facility] Comment on above: Order Comment: Unkno wn Performed By: #### 2 5508, 35215, 43942, 44001, 35517 #### [facility] [address] D DIMER TESTon 08-15-2020 D-DIMER TEST 2.03 mcg/mL FEU High 0.27-0.49 [facility] Comment on above: Order Comment: Yes: Add to Previous draw if able Result Comment: D-Di priscilla values of less than 0.50 ug/ml (FEU) are considered to be a negative predictor of thrombosis. However, the D-Dimer result should be used in conjunction with pretest probability and should not be used alone to diagnose a thrombotic event. Performed By: #### 2 5508, 15406, 81925, 31351, 32688 #### [facility] [address] [facility] [place] [address], [facility] FERRITINon 08-15-2020 Ferritin [Mass/Vol] 1412 ng/mL High 24-336 [facility] Comment on above: Order Comment: Unkno wn Performed By: #### 2 5508, 35618, 77249, 57744, 42612 #### [facility] [address] [facility] [place] [address], [facility] LDH BLOODon 08-15-2020 LDH 457 Units/L High 140-271 [facility] Comment on above: Order Comment: Unkno wn Performed By: #### 2 5508, 05431, 54500, 37330, 28148 #### [facility] [address] [place] [address], [facility] LIVER BATTERYon 08-15-2020 Albumin [Mass/Vol] 3.1 g/dL Low 3.5-5.7 [facility] Comment on above: Order Comment: Unkno wn Performed By: #### 2 5508, 72876, 83546, 57494, 63897 #### [facility] [address] [place] [address], [facility] ALKALINE PHOSPH 94 IU/L Normal 34-104 [facility] Comment on above: Order Comment: Unkno wn Performed By: #### 2 5508, 90315, 80787, 39694, 01332 #### [facility] [address] [place] [address], [facility] ALT [Catalytic activity/Vol] 108 U/L High 7-52 [facility] Comment on above: Order Comment: Unkno wn Performed By: #### 2 5508, 49913, 49899, 22149, 30592 #### [facility] [address] [place] [address], [facility] AST [Catalytic activity/Vol] 54 U/L High 13-39 [facility] Comment on above: Order Comment: Unkno wn Performed By: #### 2 5508, 81121, 68226, 17289, 25004 #### [facility] [address] [place] [address], [place] Bilirubin [Mass/Vol] 0.8 mg/dL Normal 0.3-1.0 [facility] Comment on above: Order Comment: Unkno wn Performed By: #### 2 5508, 46996, 45474, 93437, 00909 #### [facility] [address] [place] [address], [place] Bilirubin.direct [Mass/Vol] 0.2 mg/dL Normal 0.0-0.2 [facility] Comment on above: Order Comment: Unkno wn Performed By: #### 2 5508, 95638, 11939, 00345, 57075 #### [facility] [address] [place] [address], [facility] Protein [Mass/Vol] 5.9 g/dL Low 6.0-8.3 [facility] Comment on above: Order Comment: Unkno wn Performed By: #### 2 5508, 70859, 11077, 10640, 07780 #### [facility] [address] [place] [address], [facility] TACROLIMUSon 08-15-2020 Tacrolimus (Bld) [Mass/Vol] 4.4 ng/mL Low 5.0-20.0 [facility] Comment on above: Order Comment: Yes: Add to Previous draw if able Result Comment: The [employer] Tacrolimus assay is a delayed one-step immunoassay for the quantitative determination of tacrolimus in human whole blood using the chemiluminescent microparticle immunoassay (CMIA) technology with flexible assay protocols, referred to as Chemiflex. Performed By: #### 2 5508, 37890, 33363, 73629, 40018 #### [facility] [address] [place] [address], [facility] BASIC METABOLIC PANELon -3 Calcium [Mass/Vol] 8.2 mg/dL Low 8.6-10.3 [facility] Comment on above: Order Comment: No: D o not add to previous draw Performed By: #### 2 5508, 47970, 11918, 76155, 63811 #### [facility] [address] [place] [address], [facility] Chloride [Moles/Vol] 102 mmol/L Normal 98-107 [facility] Comment on above: Order Comment: No: D o not add to previous draw Performed By: #### 2 5508, 79380, 36669, 50839, 99334 #### [facility] [address] [place] [address], [facility] CO2 [Moles/Vol] 19 mmol/L Low 21-31 [facility] Comment on above: Order Comment: No: D o not add to previous draw Performed By: #### 2 5508, 57253, 38239, 54862, 35138 #### [facility] [address] [place] [address], [place] Creatinine [Mass/Vol] 0.95 mg/dL Normal 0.70-1.30 [facility] Comment on above: Order Comment: No: D o not add to previous draw Performed By: #### 2 5508, 95457, 25412, 56060, 57427 #### [facility] [address] [place] [address], [place] GFR/1.73 sq M.predicted among blacks MDRD (S/P/Bld) [Vol rate/Area] mL/min/{1.73_m2} Normal >60 [facility] Comment on above: Order Comment: No: D o not add to previous draw Performed By: #### 2 5508, 45675, 18447, 28685, 15446 #### [facility] [address] [place] [address], [place] GFR/1.73 sq M.predicted among non-blacks MDRD (S/P/Bld) [Vol rate/Area] mL/min/{1.73_m2} Normal >60 [facility] Comment on above: Order Comment: No: D o not add to previous draw Performed By: #### 2 5508, 50354, 23894, 90151, 94946 #### [facility] [address] [place] [address], [place] Glucose [Mass/Vol] 253 mg/dL High 70-100 [facility] Comment on above: Order Comment: No: D o not add to previous draw Performed By: #### 2 5508, 40538, 99741, 04183, 99251 #### [facility] [address] [place] [address], [place] Potassium [Moles/Vol] 4.0 mmol/L Normal 3.5-5.1 [facility] Comment on above: Order Comment: No: D o not add to previous draw Performed By: #### 2 5508, 92422, 51349, 29124, 03130 #### [facility] [address] [place] [address], [facility] Sodium [Moles/Vol] 130 mmol/L Low 136-145 [facility] Comment on above: Order Comment: No: D o not add to previous draw Performed By: #### 2 5508, 80401, 02320, 54183, 94135 #### [facility] [address] [place] [address], [facility] Urea nitrogen [Mass/Vol] 34 mg/dL High 7-25 [facility] Comment on above: Order Comment: No: D o not add to previous draw Performed By: #### 2 5508, 71285, 49019, 10212, 12270 #### [facility] [address] C REACTIVE PROTEINon 021 CRP [Mass/Vol] 19.7 mg/L High 0.0-7.0 [facility] Comment on above: Order Comment: No: D o not add to previous draw Performed By: #### 6 1405 #### [facility] [address] [place] [address], [facility] COMP METABOLIC PANELon 08-14 Albumin [Mass/Vol] 3.0 g/dL Low 3.5-5.7 [facility] Comment on above: Order Comment: This order is a replacement of the rejected order with accession [id number]. Performed By: #### 2 5508, 31405, 88045, 67567, 76344 #### [facility] [address] [place] [address], [facility] ALKALINE PHOSPH 81 IU/L Normal 34-104 [facility] Comment on above: Order Comment: This order is a replacement of the rejected order with accession [id number]. Performed By: #### 2 5508, 82709, 46152, 74837, 06200 #### [facility] [address] [place] [address], [facility] ALT [Catalytic activity/Vol] 80 U/L High 7-52 [facility] Comment on above: Order Comment: This order is a replacement of the rejected order with accession [id number]. Performed By: #### 2 5508, 32722, 19734, 44197, 81646 #### [facility] [address] [place] [address], [facility] AST [Catalytic activity/Vol] 52 U/L High 13-39 [facility] Comment on above: Order Comment: This order is a replacement of the rejected order with accession [id number]. Performed By: #### 2 5508, 38522, 60680, 42889, 75902 #### [facility] [address] [facility] [place] [address], [facility] Bilirubin [Mass/Vol] 0.7 mg/dL Normal 0.3-1.0 [facility] Comment on above: Order Comment: This order is a replacement of the rejected order with accession [id number]. Performed By: #### 2 5508, 01926, 03397, 06179, 45342 #### [facility] [address] [place] [address], [facility] Calcium [Mass/Vol] 8.1 mg/dL Low 8.6-10.3 [facility] Comment on above: Order Comment: This order is a replacement of the rejected order with accession [id number]. Performed By: #### 2 5508, 32143, 31489, 14420, 03297 #### [facility] [address] [place] [address], [facility] Chloride [Moles/Vol] 102 mmol/L Normal 98-107 [facility] Comment on above: Order Comment: This order is a replacement of the rejected order with accession [id number]. Performed By: #### 2 5508, 02142, 61300, 13042, 34861 #### [facility] [address] [place] [address], [facility] CO2 [Moles/Vol] 24 mmol/L Normal 21-31 [facility] Comment on above: Order Comment: This order is a replacement of the rejected order with accession [id number]. Performed By: #### 2 5508, 00567, 00782, 27959, 12964 #### [facility] [address] [place] [address], [place] Creatinine [Mass/Vol] 0.98 mg/dL Normal 0.70-1.30 [facility] Comment on above: Order Comment: This order is a replacement of the rejected order with accession [id number]. Performed By: #### 2 5508, 51187, 64737, 27927, 76441 #### [facility] [address] [place] [address], [place] GFR/1.73 sq M.predicted among blacks MDRD (S/P/Bld) [Vol rate/Area] mL/min/{1.73_m2} Normal >60 [facility] Comment on above: Order Comment: This order is a replacement of the rejected order with accession [id number]. Performed By: #### 2 5508, 77603, 99285, 36661, 91211 #### [facility] [address] [place] [address], [place] GFR/1.73 sq M.predicted among non-blacks MDRD (S/P/Bld) [Vol rate/Area] mL/min/{1.73_m2} Normal >60 [facility] Comment on above: Order Comment: This order is a replacement of the rejected order with accession [id number]. Performed By: #### 2 5508, 45171, 50112, 73347, 16648 #### [facility] [address] [place] [address], [place] Glucose [Mass/Vol] 141 mg/dL High 70-100 [facility] Comment on above: Order Comment: This order is a replacement of the rejected order with accession [id number]. Performed By: #### 2 5508, 45042, 95661, 96594, 30938 #### [facility] [address] [place] [address], [facility] Potassium [Moles/Vol] 4.2 mmol/L Normal 3.5-5.1 [facility] Comment on above: Order Comment: This order is a replacement of the rejected order with accession [id number]. Performed By: #### 2 5508, 13195, 82783, 94664, 97472 #### [facility] [address] [place] [address], [facility] Protein [Mass/Vol] 5.6 g/dL Low 6.0-8.3 [facility] Comment on above: Order Comment: This order is a replacement of the rejected order with accession [id number]. Performed By: #### 2 5508, 87270, 64377, 52375, 19581 #### [facility] [address] [place] [address], [facility] Sodium [Moles/Vol] 132 mmol/L Low 136-145 [facility] Comment on above: Order Comment: This order is a replacement of the rejected order with accession [id number]. Performed By: #### 2 5508, 73359, 81719, 23235, 36143 #### [facility] [address] [place] [address], [facility] Urea nitrogen [Mass/Vol] 32 mg/dL High 7-25 [facility] Comment on above: Order Comment: This order is a replacement of the rejected order with accession [id number]. Performed By: #### 2 5508, 24491, 15581, 26695, 93238 #### [facility] [address] [place] [address], [facility] CPKon 08-14-2020 CK [Catalytic activity/Vol] 47 U/L Normal 30-223 [facility] Comment on above: Order Comment: No: D o not add to previous draw Performed By: #### 2 5508, 67653, 79713, 03534, 47561 #### [facility] [address] D DIMER TESTon 08-14-2020 D-DIMER TEST 2.41 mcg/mL FEU High 0.27-0.49 [facility] Comment on above: Order Comment: No: D o not add to previous draw Result Comment: D-Di priscilla values of less than 0.50 ug/ml (FEU) are considered to be a negative predictor of thrombosis. However, the D-Dimer result should be used in conjunction with pretest probability and should not be used alone to diagnose a thrombotic event. Performed By: #### 6 1405 #### [facility] [address] FERRITINon 08-14-2020 Ferritin [Mass/Vol] 836 ng/mL High 24-336 [facility] Comment on above: Order Comment: No: D o not add to previous draw Performed By: #### 2 5508, 89524, 23086, 68794, 69992 #### [facility] [address] [place] [address], [facility] LDH BLOODon 08-14-2020 LDH 310 Units/L High 140-271 [facility] Comment on above: Order Comment: No: D o not add to previous draw Performed By: #### 2 5508, 02785, 64855, 01778, 57002 #### [facility] [address] [place] [address], [facility] LIVER BATTERYon 08-14-2020 Albumin [Mass/Vol] 2.9 g/dL Low 3.5-5.7 [facility] Comment on above: Order Comment: No: D o not add to previous draw Performed By: #### 2 5508, 03916, 42999, 06993, 74722 #### [facility] [address] [place] [address], [facility] ALKALINE PHOSPH 78 IU/L Normal 34-104 [facility] Comment on above: Order Comment: No: D o not add to previous draw Performed By: #### 2 5508, 56410, 13234, 33896, 01309 #### [facility] [address] [place] [address], [place] ALT [Catalytic activity/Vol] 83 U/L High 7-52 [facility] Comment on above: Order Comment: No: D o not add to previous draw Performed By: #### 2 5508, 02980, 64762, 69434, 25161 #### [facility] [address] [place] [address], [place] AST [Catalytic activity/Vol] 46 U/L High 13-39 [facility] Comment on above: Order Comment: No: D o not add to previous draw Performed By: #### 2 5508, 36406, 39099, 29041, 59369 #### [facility] [address] [place] [address], [place] Bilirubin [Mass/Vol] 0.6 mg/dL Normal 0.3-1.0 [facility] Comment on above: Order Comment: No: D o not add to previous draw Performed By: #### 2 5508, 52543, 32495, 94562, 73698 #### [facility] [address] [place] [address], [place] Bilirubin.direct [Mass/Vol] 0.2 mg/dL Normal 0.0-0.2 [facility] Comment on above: Order Comment: No: D o not add to previous draw Performed By: #### 2 5508, 13851, 88897, 08131, 27310 #### [facility] [address] [place] [address], [place] Protein [Mass/Vol] 5.3 g/dL Low 6.0-8.3 [facility] Comment on above: Order Comment: No: D o not add to previous draw Performed By: #### 2 5508, 73517, 14865, 95955, 43392 #### [facility] [address] [place] [address], [facility] OSMOLALITY BLOODon Osmolality [Osmolality] 291 mosm/kg Normal 285-305 [facility] Comment on above: Order Comment: No: D o not add to previous draw Performed By: #### 2 5508, 01078, 03414, 69604, 98215 #### [facility] [address] [place] [address], [facility] TACROLIMUSon 08-14-2020 Tacrolimus (Bld) [Mass/Vol] 9.7 ng/mL Normal 5.0-20.0 [facility] Comment on above: Order Comment: Yes: Add to Previous draw if able Result Comment: The [employer] Tacrolimus assay is a delayed one-step immunoassay for the quantitative determination of tacrolimus in human whole blood using the chemiluminescent microparticle immunoassay (CMIA) technology with flexible assay protocols, referred to as Chemiflex. Performed By: #### 2 5508, 73715, 66648, 98670, 48767 #### [facility] [address] [facility] [address] Tacrolimus (Bld) [Mass/Vol] 5.7 ng/mL Normal 5.0-20.0 [facility] Comment on above: Order Comment: Yes: Add to Previous draw if able Result Comment: The [employer] Tacrolimus assay is a delayed one-step immunoassay for the quantitative determination of tacrolimus in human whole blood using the chemiluminescent microparticle immunoassay (CMIA) technology with flexible assay protocols, referred to as Chemiflex. Performed By: #### 2 5508, 44445, 44197, 95986, 87569 #### [facility] [address] [place] [address], [facility] COMP METABOLIC PANELon 08-12 Albumin [Mass/Vol] 3.2 g/dL Low 3.5-5.7 [facility] Comment on above: Order Comment: No: D o not add to previous draw Performed By: #### 2 5508, 35729, 73366, 01647, 34791 #### [facility] [address] [place] [address], [place] ALKALINE PHOSPH 89 IU/L Normal 34-104 [facility] Comment on above: Order Comment: No: D o not add to previous draw Performed By: #### 2 5508, 95923, 50676, 71872, 78194 #### [facility] [address] [place] [address], [place] ALT [Catalytic activity/Vol] 69 U/L High 7-52 [facility] Comment on above: Order Comment: No: D o not add to previous draw Performed By: #### 2 5508, 46805, 90995, 16984, 72122 #### [facility] [address] [place] [address], [place] AST [Catalytic activity/Vol] 54 U/L High 13-39 [facility] Comment on above: Order Comment: No: D o not add to previous draw Performed By: #### 2 5508, 26715, 97219, 35569, 81297 #### [facility] [address] [place] [address], [place] Bilirubin [Mass/Vol] 1.0 mg/dL Normal 0.3-1.0 [facility] Comment on above: Order Comment: No: D o not add to previous draw Performed By: #### 2 5508, 83491, 99613, 21020, 98886 #### [facility] [address] [place] [address], [place] Calcium [Mass/Vol] 8.8 mg/dL Normal 8.6-10.3 [facility] Comment on above: Order Comment: No: D o not add to previous draw Performed By: #### 2 5508, 42155, 68205, 50343, 47204 #### [facility] [address] [place] [address], [place] Chloride [Moles/Vol] 97 mmol/L Low 98-107 [facility] Comment on above: Order Comment: No: D o not add to previous draw Performed By: #### 2 5508, 72195, 27164, 70514, 00208 #### [facility] [address] [place] [address], [place] CO2 [Moles/Vol] 24 mmol/L Normal 21-31 [facility] Comment on above: Order Comment: No: D o not add to previous draw Performed By: #### 2 5508, 86056, 83135, 93683, 97169 #### [facility] [address] [place] [address], [place] Creatinine [Mass/Vol] 0.82 mg/dL Normal 0.70-1.30 [facility] Comment on above: Order Comment: No: D o not add to previous draw Performed By: #### 2 5508, 34008, 09697, 62236, 30818 #### [facility] [address] [place] [address], [place] GFR/1.73 sq M.predicted among blacks MDRD (S/P/Bld) [Vol rate/Area] mL/min/{1.73_m2} Normal >60 [facility] Comment on above: Order Comment: No: D o not add to previous draw Performed By: #### 2 5508, 38882, 18194, 95047, 63175 #### [facility] [address] [place] [address], [place] GFR/1.73 sq M.predicted among non-blacks MDRD (S/P/Bld) [Vol rate/Area] mL/min/{1.73_m2} Normal >60 [facility] Comment on above: Order Comment: No: D o not add to previous draw Performed By: #### 2 5508, 50277, 85156, 86180, 69285 #### [facility] [address] [place] [address], [place] Glucose [Mass/Vol] 154 mg/dL High 70-100 [facility] Comment on above: Order Comment: No: D o not add to previous draw Performed By: #### 2 5508, 61177, 89750, 02972, 14140 #### [facility] [address] [place] [address], [facility] Potassium [Moles/Vol] 4.9 mmol/L Normal 3.5-5.1 [facility] Comment on above: Order Comment: No: D o not add to previous draw Performed By: #### 2 5508, 25405, 81901, 89714, 00034 #### [facility] [address] [place] [address], [place] Protein [Mass/Vol] 6.1 g/dL Normal 6.0-8.3 [facility] Comment on above: Order Comment: No: D o not add to previous draw Performed By: #### 2 5508, 62485, 82960, 39372, 50786 #### [facility] [address] [place] [address], [place] Sodium [Moles/Vol] 128 mmol/L Low 136-145 [facility] Comment on above: Order Comment: No: D o not add to previous draw Performed By: #### 2 5508, 06226, 65791, 86896, 07886 #### [facility] [address] [place] [address], [place] Urea nitrogen [Mass/Vol] 32 mg/dL High 7-25 [facility] Comment on above: Order Comment: No: D o not add to previous draw Performed By: #### 2 5508, 31731, 43902, 16824, 58992 #### [facility] [address] [place] [address], [place] OSMOLALITY URINEon 1 OSMOLALITY 857 mOsm/kg Normal 50-1400 [facility] Comment on above: Order Comment: No: D o not add to previous draw Performed By: #### 2 5508, 61693, 33445, 44815, 99433 #### [facility] [address] [place] [address], [facility] SODIUM URINE RANDOMon 2020 Sodium (U) [Moles/Vol] 51 mmol/L Normal [facility] Comment on above: Order Comment: No: D o not add to previous draw Result Comment: Ther e are no established reference values for random urine specimens Performed By: #### 2 5508, 09509, 04331, 08542, 64587 #### [facility] [address] [place] [address], [facility] TACROLIMUSon 08-12-2020 Tacrolimus (Bld) [Mass/Vol] 5.2 ng/mL Normal 5.0-20.0 [facility] Comment on above: Order Comment: Unkno wn Result Comment: The [employer] Tacrolimus assay is a delayed one-step immunoassay for the quantitative determination of tacrolimus in human whole blood using the chemiluminescent microparticle immunoassay (CMIA) technology with flexible assay protocols, referred to as Chemiflex. Performed By: #### 9 9914 ####[facility] [facility] [place] [address], [facility] BASIC METABOLIC PANELon 07-17 Calcium [Mass/Vol] 8.6 mg/dL Normal 8.6-10.3 [facility] Comment on above: Order Comment: No: D o not add to previous draw Performed By: #### 2 5508, 96726, 78852, 08880, 33833 #### [facility] [address] [place] [address], [facility] Chloride [Moles/Vol] 97 mmol/L Low 98-107 [facility] Comment on above: Order Comment: No: D o not add to previous draw Performed By: #### 2 5508, 19266, 64878, 71713, 61235 #### [facility] [address] [place] [address], [facility] CO2 [Moles/Vol] 23 mmol/L Normal 21-31 [facility] Comment on above: Order Comment: No: D o not add to previous draw Performed By: #### 2 5508, 14705, 41815, 97334, 29090 #### [facility] [address] [place] [address], [place] Creatinine [Mass/Vol] 0.82 mg/dL Normal 0.70-1.30 [facility] Comment on above: Order Comment: No: D o not add to previous draw Performed By: #### 2 5508, 50740, 25045, 85655, 49175 #### [facility] [address] [place] [address], [place] GFR/1.73 sq M.predicted among blacks MDRD (S/P/Bld) [Vol rate/Area] mL/min/{1.73_m2} Normal >60 [facility] Comment on above: Order Comment: No: D o not add to previous draw Performed By: #### 2 5508, 42998, 50138, 66335, 44825 #### [facility] [address] [place] [address], [place] GFR/1.73 sq M.predicted among non-blacks MDRD (S/P/Bld) [Vol rate/Area] mL/min/{1.73_m2} Normal >60 [facility] Comment on above: Order Comment: No: D o not add to previous draw Performed By: #### 2 5508, 94951, 86890, 06979, 56759 #### [facility] [address] [place] [address], [place] Glucose [Mass/Vol] 166 mg/dL High 70-100 [facility] Comment on above: Order Comment: No: D o not add to previous draw Performed By: #### 2 5508, 41318, 44876, 86975, 02569 #### [facility] [address] [place] [address], [place] Potassium [Moles/Vol] 4.9 mmol/L Normal 3.5-5.1 [facility] Comment on above: Order Comment: No: D o not add to previous draw Performed By: #### 2 5508, 44187, 02748, 41975, 30294 #### [facility] [address] [place] [address], [facility] Sodium [Moles/Vol] 127 mmol/L Low 136-145 [facility] Comment on above: Order Comment: No: D o not add to previous draw Performed By: #### 2 5508, 71152, 42139, 18423, 64374 #### [facility] [address] [place] [address], [facility] Urea nitrogen [Mass/Vol] 33 mg/dL High 7-25 [facility] Comment on above: Order Comment: No: D o not add to previous draw Performed By: #### 2 5508, 22550, 17952, 18949, 83352 #### [facility] [address] [place] [address], [facility] CREATININE URINE RANDOMon Creatinine (U) [Mass/Vol] 59.0 mg/dL Normal [facility] Comment on above: Order Comment: Yes: Add to Previous draw if able Result Comment: Ther e are no established reference values for random urine specimens Performed By: #### 2 5508, 79064, 69361, 44975, 45680 #### [facility] [address] [place] [address], [facility] MAGNESIUM BLOODon 08-11-2020 Magnesium [Mass/Vol] 1.7 mg/dL Low 1.9-2.7 [facility] Comment on above: Order Comment: No: D o not add to previous draw Performed By: #### 2 5508, 81230, 60333, 77555, 76329 #### [facility] [address] [place] [address], [place] SODIUM URINE RANDOMon 2020 Sodium (U) [Moles/Vol] 90 mmol/L Normal [facility] Comment on above: Order Comment: Yes: Add to Previous draw if able Result Comment: Ther e are no established reference values for random urine specimens Performed By: #### 2 5508, 72802, 56962, 67243, 68508 #### [facility] [address] [place] [address], [facility] TACROLIMUSon 08-11-2020 Tacrolimus (Bld) [Mass/Vol] 6.3 ng/mL Normal 5.0-20.0 [facility] Comment on above: Order Comment: Yes: Add to Previous draw if able Result Comment: The [employer] Tacrolimus assay is a delayed one-step immunoassay for the quantitative determination of tacrolimus in human whole blood using the chemiluminescent microparticle immunoassay (CMIA) technology with flexible assay protocols, referred to as Chemiflex. Performed By: #### 2 5508, 04226, 35248, 06262, 97224 #### [facility] [address] [place] [address], [facility] BASIC METABOLIC PANELon 07-17 Calcium [Mass/Vol] 8.3 mg/dL Low 8.6-10.3 [facility] Comment on above: Order Comment: Yes: Add to Previous draw if able Performed By: #### 2 5508, 40642, 33264, 70237, 44554 #### [facility] [address] [place] [address], [facility] Chloride [Moles/Vol] 102 mmol/L Normal 98-107 [facility] Comment on above: Order Comment: Yes: Add to Previous draw if able Performed By: #### 2 5508, 79587, 97114, 63874, 26724 #### [facility] [address] [place] [address], [facility] CO2 [Moles/Vol] 20 mmol/L Low 21-31 [facility] Comment on above: Order Comment: Yes: Add to Previous draw if able Performed By: #### 2 5508, 48886, 96679, 62047, 92586 #### [facility] [address] [place] [address], [place] Creatinine [Mass/Vol] 0.78 mg/dL Normal 0.70-1.30 [facility] Comment on above: Order Comment: Yes: Add to Previous draw if able Performed By: #### 2 5508, 23365, 38248, 89079, 75958 #### [facility] [address] [place] [address], [place] GFR/1.73 sq M.predicted among blacks MDRD (S/P/Bld) [Vol rate/Area] mL/min/{1.73_m2} Normal >60 [facility] Comment on above: Order Comment: Yes: Add to Previous draw if able Performed By: #### 2 5508, 45895, 40253, 41033, 88612 #### [facility] [address] [place] [address], [place] GFR/1.73 sq M.predicted among non-blacks MDRD (S/P/Bld) [Vol rate/Area] mL/min/{1.73_m2} Normal >60 [facility] Comment on above: Order Comment: Yes: Add to Previous draw if able Performed By: #### 2 5508, 20771, 41240, 60471, 55439 #### [facility] [address] [place] [address], [place] Glucose [Mass/Vol] 199 mg/dL High 70-100 [facility] Comment on above: Order Comment: Yes: Add to Previous draw if able Performed By: #### 2 5508, 65505, 40523, 38847, 64205 #### [facility] [address] [place] [address], [place] Potassium [Moles/Vol] 4.9 mmol/L Normal 3.5-5.1 [facility] Comment on above: Order Comment: Yes: Add to Previous draw if able Performed By: #### 2 5508, 31966, 77501, 55200, 03037 #### [facility] [address] [place] [address], [place] Sodium [Moles/Vol] 129 mmol/L Low 136-145 [facility] Comment on above: Order Comment: Yes: Add to Previous draw if able Performed By: #### 2 5508, 31824, 26805, 02918, 13333 #### [facility] [address] [place] [address], [place] Urea nitrogen [Mass/Vol] 33 mg/dL High 7-25 [facility] Comment on above: Order Comment: Yes: Add to Previous draw if able Performed By: #### 2 5508, 90275, 65897, 10129, 75050 #### [facility] [address] [place] [address], [place] CBC COMPLETE BLOOD COUNTon 08-10-2020 Erythrocyte distribution width (RBC) [Ratio] 12.9 % Normal 11.5-15.0 [facility] Comment on above: Order Comment: No: D o not add to previous draw Performed By: #### 6 1405 #### [facility] [address] [place] [address], [facility] Hematocrit (Bld) [Volume fraction] 45.9 % Normal 39.0-50.0 [facility] Comment on above: Order Comment: No: D o not add to previous draw Performed By: #### 6 1405 #### [facility] [address] [place] [address], [place] Hemoglobin (Bld) [Mass/Vol] 15.3 g/dL Normal 13.0-17.0 [facility] Comment on above: Order Comment: No: D o not add to previous draw Performed By: #### 6 1405 #### [facility] [address] [place] [address], [place] MCH (RBC) [Entitic mass] 29.3 pg Normal 27.0-33.0 [facility] Comment on above: Order Comment: No: D o not add to previous draw Performed By: #### 6 1405 #### [facility] [address] MCHC (RBC) [Mass/Vol] 33.3 g/dL Normal 32.0-35.0 [facility] Comment on above: Order Comment: No: D o not add to previous draw Performed By: #### 6 1405 #### [facility] [address] [place] [address], [facility] MCV (RBC) [Entitic vol] 87.8 fL Normal 82.0-98.0 [facility] Comment on above: Order Comment: No: D o not add to previous draw Performed By: #### 6 1405 #### [facility] [address] [facility] [place] [address], [facility] Nucleated RBC/100 WBC (Bld) [Ratio] 0 % Normal 0-0 [facility] Comment on above: Order Comment: No: D o not add to previous draw Performed By: #### 6 1405 #### [facility] [address] [facility] [place] [address], [facility] PLAT CNT 422 10*3/uL High 150-400 [facility] Comment on above: Order Comment: No: D o not add to previous draw Performed By: #### 6 1405 #### [facility] [address] [facility] [place] [address], [facility] RBC (Bld) [#/Vol] 5.23 10*6/uL Normal 4.20-5.70 [facility] Comment on above: Order Comment: No: D o not add to previous draw Performed By: #### 6 1405 #### [facility] [address] [facility] [place] [id number], [facility] WBC (Bld) [#/Vol] 7.77 10*3/uL Normal 4.00-10.60 [facility] Comment on above: Order Comment: No: D o not add to previous draw Performed By: #### 6 1405 #### [facility] [address] [place] [address], [facility] MAGNESIUM BLOODon 08-10-2020 Magnesium [Mass/Vol] 1.7 mg/dL Low 1.9-2.7 [facility] Comment on above: Order Comment: Yes: Add to Previous draw if able Performed By: #### 2 5508, 99756, 87456, 20372, 26500 #### [place] [address], [facility] PORTABLE CHEST 1 VIEWon 07-17 PORTABLE CHEST 1 VIEW [facility] Department of Radiology [address] [place] [id number] == Patient Name: VISHAL DUKE : 1960 Sex: M Age: Race: White Pt. Location: [id number] Patient Status: I Ordered Date: 08/10/2020 7:40:00 [...] pneumothorax. Electronically signed: Brett Mc. Transcribed by: [email or web address], User Resident: Electronically Signed by: BRETT MC @ 08/10/2020 10:10 AM Normal [facility] Comment on above: Order Comment: No: D o not add to previous draw CV'D BY [facility]MM [facility] AT 1240 TACROLIMUSon 08-10-2020 Tacrolimus (Bld) [Mass/Vol] 11.2 ng/mL Normal 5.0-20.0 [facility] Comment on above: Order Comment: No: D o not add to previous draw Result Comment: The [employer] Tacrolimus assay is a delayed one-step immunoassay for the quantitative determination of tacrolimus in human whole blood using the chemiluminescent microparticle immunoassay (CMIA) technology with flexible assay protocols, referred to as Chemiflex. Performed By: #### 2 5508, 75132, 56363, 26785, 02901 #### [facility] [address] [facility]. [address] TACROLIMUSon 08-09-2020 Tacrolimus (Bld) [Mass/Vol] 11.0 ng/mL Normal 5.0-20.0 [facility] Comment on above: Order Comment: Yes: Add to Previous draw if able Result Comment: The [employer] Tacrolimus assay is a delayed one-step immunoassay for the quantitative determination of tacrolimus in human whole blood using the chemiluminescent microparticle immunoassay (CMIA) technology with flexible assay protocols, referred to as Chemiflex. Performed By: #### 2 5508, 89529, 82296, 19672, 09278 #### [facility] [address] [place] [address], [facility] TROPONIN-Ion 08-09-2020 Troponin I.cardiac [Mass/Vol] 5.31 ng/mL Critically high 0.00-0.04 [facility] Comment on above: Order Comment: Yes: Add to Previous draw if able Result Comment: [place] EVIOUS CRITICAL RESULT REFERENCE RANGES: 0.00 - 0.04 ng/ml NORMAL 0.05 - 0.50 ng/ml INDETERMINATE > 0.50 ng/ml CONSISTENT WITH AN M.I. Performed By: #### 2 5508, 83448, 62001, 67316, 97685 #### [facility] [address] UFH HEPARIN ASSAYon 08-10-19 21 UNFRACTIONATED HEPARIN <0.10 Critically low 0.30-0.70 [facility] Comment on above: Result Comment: [place] roxaban and Apixaban will interfere with the anti Xa assay used to monitor UFH and LMWH. Results called. Accurately read back by Luiz Shaffer RN at 0709 Performed By: #### 3 0477 ####[facility] COMP METABOLIC PANELon 08-08 Albumin [Mass/Vol] 2.8 g/dL Low 3.5-5.7 [facility] Comment on above: Order Comment: Yes: Add to Previous draw if able Performed By: #### 2 5508, 28536, 68821, 85916, 63927 #### [facility] [address] [place] [address], [facility] ALKALINE PHOSPH 70 IU/L Normal 34-104 [facility] Comment on above: Order Comment: Yes: Add to Previous draw if able Performed By: #### 2 5508, 38453, 14495, 86545, 57424 #### [facility] [address] [place] [address], [facility] ALT [Catalytic activity/Vol] 30 U/L Normal 7-52 [facility] Comment on above: Order Comment: Yes: Add to Previous draw if able Performed By: #### 2 5508, 98240, 61179, 91219, 38431 #### [facility] [address] [place] [id number], [facility] AST [Catalytic activity/Vol] 48 U/L High 13-39 [facility] Comment on above: Order Comment: Yes: Add to Previous draw if able Performed By: #### 2 5508, 53847, 35450, 41259, 82505 #### [facility] [address] [place] [address], [place] Bilirubin [Mass/Vol] 0.9 mg/dL Normal 0.3-1.0 [facility] Comment on above: Order Comment: Yes: Add to Previous draw if able Performed By: #### 2 5508, 41159, 93974, 53652, 83061 #### [facility] [address] [place] [address], [place] Calcium [Mass/Vol] 8.1 mg/dL Low 8.6-10.3 [facility] Comment on above: Order Comment: Yes: Add to Previous draw if able Performed By: #### 2 5508, 25240, 45757, 29537, 31682 #### [facility] [address] [place] [address], [place] Chloride [Moles/Vol] 104 mmol/L Normal 98-107 [facility] Comment on above: Order Comment: Yes: Add to Previous draw if able Performed By: #### 2 5508, 61460, 51888, 96518, 99889 #### [facility] [address] [place] [address], [place] CO2 [Moles/Vol] 19 mmol/L Low 21-31 [facility] Comment on above: Order Comment: Yes: Add to Previous draw if able Performed By: #### 2 5508, 27234, 48799, 31542, 27313 #### [facility] [address] [place] [address], [place] Creatinine [Mass/Vol] 0.92 mg/dL Normal 0.70-1.30 [facility] Comment on above: Order Comment: Yes: Add to Previous draw if able Performed By: #### 2 5508, 79820, 45009, 10289, 34369 #### [facility] [address] [place] [address], [place] GFR/1.73 sq M.predicted among blacks MDRD (S/P/Bld) [Vol rate/Area] mL/min/{1.73_m2} Normal >60 [facility] Comment on above: Order Comment: Yes: Add to Previous draw if able Performed By: #### 2 5508, 97260, 53360, 70974, 98453 #### [facility] [address] [place] [address], [place] GFR/1.73 sq M.predicted among non-blacks MDRD (S/P/Bld) [Vol rate/Area] mL/min/{1.73_m2} Normal >60 [facility] Comment on above: Order Comment: Yes: Add to Previous draw if able Performed By: #### 2 5508, 32804, 35303, 63543, 76326 #### [facility] [address] [place] [address], [place] Glucose [Mass/Vol] 159 mg/dL High 70-100 [facility] Comment on above: Order Comment: Yes: Add to Previous draw if able Performed By: #### 2 5508, 22412, 29195, 90371, 61334 #### [facility] [address] [place] [address], [place] Potassium [Moles/Vol] 5.2 mmol/L High 3.5-5.1 [facility] Comment on above: Order Comment: Yes: Add to Previous draw if able Performed By: #### 2 5508, 96909, 68529, 34795, 84301 #### [facility] [address] [place] [address], [place] Protein [Mass/Vol] 5.5 g/dL Low 6.0-8.3 [facility] Comment on above: Order Comment: Yes: Add to Previous draw if able Performed By: #### 2 5508, 11790, 41260, 35450, 99155 #### [facility] [address] Sodium [Moles/Vol] 133 mmol/L Low 136-145 [facility] Comment on above: Order Comment: Yes: Add to Previous draw if able Performed By: #### 2 5508, 06685, 05459, 94527, 06245 #### [facility] [address] Urea nitrogen [Mass/Vol] 35 mg/dL High 7-25 [facility] Comment on above: Order Comment: Yes: Add to Previous draw if able Performed By: #### 2 5508, 06142, 41929, 70995, 34709 #### [facility] [address] [facility] [address] TACROLIMUSon 08-08-2020 Tacrolimus (Bld) [Mass/Vol] 7.8 ng/mL Normal 5.0-20.0 [facility] Comment on above: Order Comment: Unkno wn Result Comment: The [employer] Tacrolimus assay is a delayed one-step immunoassay for the quantitative determination of tacrolimus in human whole blood using the chemiluminescent microparticle immunoassay (CMIA) technology with flexible assay protocols, referred to as Chemiflex. Performed By: #### 2 5508, 49620, 22174, 99937, 12215 #### [facility] [address] [facility] [address] UFH HEPARIN ASSAYon 08-09-19 21 UNFRACTIONATED HEPARIN 0.74 IU/mL High 0.30-0.70 [facility] Comment on above: Result Comment: [place] roxaban and Apixaban will interfere with the anti Xa assay used to monitor UFH and LMWH. Performed By: #### 3 0477 ####[facility] C REACTIVE PROTEINon 021 CRP [Mass/Vol] 75.8 mg/L High 0.0-7.0 [facility] Comment on above: Order Comment: No: D o not add to previous draw CV'D BY [facility] AT 1240 Performed By: #### 6 1405 #### [facility] [address] [facility] [place] [address], [facility] SEDIMENTATION RATEon 021 SED RATE 30 mm/hr High 0-10 [facility] Comment on above: Order Comment: No: D o not add to previous draw Performed By: #### 6 1405 #### [facility] [address] [place] [address], [facility] TACROLIMUSon 08-07-2020 Tacrolimus (Bld) [Mass/Vol] 9.1 ng/mL Normal 5.0-20.0 [facility] Comment on above: Order Comment: Unkno wn Result Comment: The [employer] Tacrolimus assay is a delayed one-step immunoassay for the quantitative determination of tacrolimus in human whole blood using the chemiluminescent microparticle immunoassay (CMIA) technology with flexible assay protocols, referred to as Chemiflex. Performed By: #### 9 9914 #### [facility] [address] [facility] [place] [address], [facility] TROPONIN-Ion 08-07-2020 Troponin I.cardiac [Mass/Vol] 7.37 ng/mL Critically high 0.00-0.04 [facility] Comment on above: Order Comment: Yes: Add to Previous draw if able Result Comment: [place] EVIOUS CRITICAL RESULT 42.94 REFERENCE RANGES: 0.00 - 0.04 ng/ml NORMAL 0.05 - 0.50 ng/ml INDETERMINATE > 0.50 ng/ml CONSISTENT WITH AN M.I. Performed By: #### 2 5508, 81435, 33325, 49612, 71583 #### [facility] [address] [facility] [place] [address], [facility] UFH HEPARIN ASSAYon 08-08-19 UNFRACTIONATED HEPARIN 0.48 IU/mL Normal 0.30-0.70 [facility] Comment on above: Result Comment: [place] roxaban and Apixaban will interfere with the anti Xa assay used to monitor UFH and LMWH. Performed By: #### 3 0477 ####[facility] CBC COMPLETE BLOOD COUNTon 0 - Erythrocyte distribution width (RBC) [Ratio] 13.2 % Normal 11.5-15.0 [facility] Comment on above: Order Comment: Yes: Add to Previous draw if able Performed By: #### 2 5508, 30829, 88656, 46713, 81583 #### [facility] [address] Hematocrit (Bld) [Volume fraction] 44.8 % Normal 39.0-50.0 [facility] Comment on above: Order Comment: Yes: Add to Previous draw if able Performed By: #### 2 5508, 19441, 43275, 60086, 45214 #### [facility] [address] [facility] [address] Hemoglobin (Bld) [Mass/Vol] 14.8 g/dL Normal 13.0-17.0 [facility] Comment on above: Order Comment: Yes: Add to Previous draw if able Performed By: #### 2 5508, 72509, 92393, 04845, 49725 #### [facility] [address] [place] [address], [facility] MCH (RBC) [Entitic mass] 29.0 pg Normal 27.0-33.0 [facility] Comment on above: Order Comment: Yes: Add to Previous draw if able Performed By: #### 2 5508, 88587, 74320, 36712, 48402 #### [facility] [address] [place] [address], [facility] MCHC (RBC) [Mass/Vol] 33.0 g/dL Normal 32.0-35.0 [facility] Comment on above: Order Comment: Yes: Add to Previous draw if able Performed By: #### 2 5508, 75120, 76765, 59901, 64096 #### [facility] [address] [place] [address], [facility] MCV (RBC) [Entitic vol] 87.8 fL Normal 82.0-98.0 [facility] Comment on above: Order Comment: Yes: Add to Previous draw if able Performed By: #### 2 5508, 76911, 18390, 41464, 51077 #### [facility] [address] [place] [id number], [facility] Nucleated RBC/100 WBC (Bld) [Ratio] 0 % Normal 0-0 [facility] Comment on above: Order Comment: Yes: Add to Previous draw if able Performed By: #### 2 5508, 30809, 51977, 01319, 72970 #### [facility] [address] [place] [address], [facility] PLAT CNT 367 10*3/uL Normal 150-400 [facility] Comment on above: Order Comment: Yes: Add to Previous draw if able Performed By: #### 2 5508, 34726, 42508, 15043, 88191 #### [facility] [address] [place] [address], [facility] RBC (Bld) [#/Vol] 5.10 10*6/uL Normal 4.20-5.70 [facility] Comment on above: Order Comment: Yes: Add to Previous draw if able Performed By: #### 2 5508, 58282, 72089, 02295, 70579 #### [facility] [address] [place] [address], [place] WBC (Bld) [#/Vol] 3.94 10*3/uL Low 4.00-10.60 [facility] Comment on above: Order Comment: Yes: Add to Previous draw if able Performed By: #### 2 5508, 02496, 95144, 76380, 15224 #### [facility] [address] [place] [id number], [facility] COMP METABOLIC PANELon 08-06 Albumin [Mass/Vol] 3.0 g/dL Low 3.5-5.7 [facility] Comment on above: Order Comment: No: D o not add to previous drawLABS DRAWN IN SAME HAND PAUSED IV. PT IS TO REMAIN FACE DOWN ONSTOMACH PER RN SO THAT IS THE ONLY PLACE WE CAN DRAW FROM RIGHT NOW. Performed By: #### 2 5508, 12282, 55609, 48229, 08085 #### [facility] [address] [place] [address], [facility] ALKALINE PHOSPH 74 IU/L Normal 34-104 [facility] Comment on above: Order Comment: No: D o not add to previous drawLABS DRAWN IN SAME HAND PAUSED IV. PT IS TO REMAIN FACE DOWN ONSTOMACH PER RN SO THAT IS THE ONLY PLACE WE CAN DRAW FROM RIGHT NOW. Performed By: #### 2 5508, 91704, 62629, 56871, 73680 #### [facility] [address] [place] [address], [facility] ALT [Catalytic activity/Vol] 42 U/L Normal 7-52 [facility] Comment on above: Order Comment: No: D o not add to previous drawLABS DRAWN IN SAME HAND PAUSED IV. PT IS TO REMAIN FACE DOWN ONSTOMACH PER RN SO THAT IS THE ONLY PLACE WE CAN DRAW FROM RIGHT NOW. Performed By: #### 2 5508, 83731, 91200, 00365, 80279 #### [facility] [address] [place] [address], [facility] AST [Catalytic activity/Vol] 112 U/L High 13-39 [facility] Comment on above: Order Comment: No: D o not add to previous drawLABS DRAWN IN SAME HAND PAUSED IV. PT IS TO REMAIN FACE DOWN ONSTOMACH PER RN SO THAT IS THE ONLY PLACE WE CAN DRAW FROM RIGHT NOW. Performed By: #### 2 5508, 02041, 19816, 67152, 12352 #### [facility] [address] [place] [address], [place] Bilirubin [Mass/Vol] 1.4 mg/dL High 0.3-1.0 [facility] Comment on above: Order Comment: No: D o not add to previous drawLABS DRAWN IN SAME HAND PAUSED IV. PT IS TO REMAIN FACE DOWN ONSTOMACH PER RN SO THAT IS THE ONLY PLACE WE CAN DRAW FROM RIGHT NOW. Performed By: #### 2 5508, 77674, 41800, 85867, 00087 #### [facility] [address] [place] [address], [facility] Calcium [Mass/Vol] 8.3 mg/dL Low 8.6-10.3 [facility] Comment on above: Order Comment: No: D o not add to previous drawLABS DRAWN IN SAME HAND PAUSED IV. PT IS TO REMAIN FACE DOWN ONSTOMACH PER RN SO THAT IS THE ONLY PLACE WE CAN DRAW FROM RIGHT NOW. Performed By: #### 2 5508, 62500, 16810, 56386, 44044 #### [facility] [address] [place] [address], [facility] Chloride [Moles/Vol] 105 mmol/L Normal 98-107 [facility] Comment on above: Order Comment: No: D o not add to previous drawLABS DRAWN IN SAME HAND PAUSED IV. PT IS TO REMAIN FACE DOWN ONSTOMACH PER RN SO THAT IS THE ONLY PLACE WE CAN DRAW FROM RIGHT NOW. Performed By: #### 2 5508, 59450, 91401, 66862, 35472 #### [facility] [address] [place] [address], [facility] CO2 [Moles/Vol] 20 mmol/L Low 21-31 [facility] Comment on above: Order Comment: No: D o not add to previous drawLABS DRAWN IN SAME HAND PAUSED IV. PT IS TO REMAIN FACE DOWN ONSTOMACH PER RN SO THAT IS THE ONLY PLACE WE CAN DRAW FROM RIGHT NOW. Performed By: #### 2 5508, 03552, 94151, 16306, 46610 #### [facility] [address] [place] [address], [facility] Creatinine [Mass/Vol] 0.91 mg/dL Normal 0.70-1.30 [facility] Comment on above: Order Comment: No: D o not add to previous drawLABS DRAWN IN SAME HAND PAUSED IV. PT IS TO REMAIN FACE DOWN ONSTOMACH PER RN SO THAT IS THE ONLY PLACE WE CAN DRAW FROM RIGHT NOW. Performed By: #### 2 5508, 81701, 47474, 63039, 61266 #### [facility] [address] [place] [address], [facility] GFR/1.73 sq M.predicted among blacks MDRD (S/P/Bld) [Vol rate/Area] mL/min/{1.73_m2} Normal >60 [facility] Comment on above: Order Comment: No: D o not add to previous drawLABS DRAWN IN SAME HAND PAUSED IV. PT IS TO REMAIN FACE DOWN ONSTOMACH PER RN SO THAT IS THE ONLY PLACE WE CAN DRAW FROM RIGHT NOW. Performed By: #### 2 5508, 96062, 92211, 03568, 72333 #### [facility] [address] [place] [address], [facility] GFR/1.73 sq M.predicted among non-blacks MDRD (S/P/Bld) [Vol rate/Area] mL/min/{1.73_m2} Normal >60 [facility] Comment on above: Order Comment: No: D o not add to previous drawLABS DRAWN IN SAME HAND PAUSED IV. PT IS TO REMAIN FACE DOWN ONSTOMACH PER RN SO THAT IS THE ONLY PLACE WE CAN DRAW FROM RIGHT NOW. Performed By: #### 2 5508, 28742, 74923, 35834, 26500 #### [facility] [address] [place] [address], [facility] Glucose [Mass/Vol] 153 mg/dL High 70-100 [facility] Comment on above: Order Comment: No: D o not add to previous drawLABS DRAWN IN SAME HAND PAUSED IV. PT IS TO REMAIN FACE DOWN ONSTOMACH PER RN SO THAT IS THE ONLY PLACE WE CAN DRAW FROM RIGHT NOW. Performed By: #### 2 5508, 25906, 87696, 86912, 26425 #### [facility] [address] [place] [address], [facility] Potassium [Moles/Vol] 4.7 mmol/L Normal 3.5-5.1 [facility] Comment on above: Order Comment: No: D o not add to previous drawLABS DRAWN IN SAME HAND PAUSED IV. PT IS TO REMAIN FACE DOWN ONSTOMACH PER RN SO THAT IS THE ONLY PLACE WE CAN DRAW FROM RIGHT NOW. Performed By: #### 2 5508, 31114, 32063, 87395, 49011 #### [facility] [address] [place] [address], [facility] Protein [Mass/Vol] 5.8 g/dL Low 6.0-8.3 [facility] Comment on above: Order Comment: No: D o not add to previous drawLABS DRAWN IN SAME HAND PAUSED IV. PT IS TO REMAIN FACE DOWN ONSTOMACH PER RN SO THAT IS THE ONLY PLACE WE CAN DRAW FROM RIGHT NOW. Performed By: #### 2 5508, 82013, 23980, 60655, 82821 #### [facility] [address] [place] [address], [facility] Sodium [Moles/Vol] 136 mmol/L Normal 136-145 [facility] Comment on above: Order Comment: No: D o not add to previous drawLABS DRAWN IN SAME HAND PAUSED IV. PT IS TO REMAIN FACE DOWN ONSTOMACH PER RN SO THAT IS THE ONLY PLACE WE CAN DRAW FROM RIGHT NOW. Performed By: #### 2 5508, 44994, 76376, 13963, 40662 #### [facility] [address] [place] [address], [facility] Urea nitrogen [Mass/Vol] 28 mg/dL High 7-25 [facility] Comment on above: Order Comment: No: D o not add to previous drawLABS DRAWN IN SAME HAND PAUSED IV. PT IS TO REMAIN FACE DOWN ONSTOMACH PER RN SO THAT IS THE ONLY PLACE WE CAN DRAW FROM RIGHT NOW. Performed By: #### 2 5508, 31480, 37510, 67066, 18039 #### [facility] [address] [place] [address], [facility] TACROLIMUSon 08-06-2020 Tacrolimus (Bld) [Mass/Vol] 9.2 ng/mL Normal 5.0-20.0 [facility] Comment on above: Order Comment: Unkno wnLABS DRAWN IN SAME HAND PAUSED IV. PT IS TO REMAIN FACE DOWN ONSTOMACH PER RN SO THAT IS THE ONLY PLACE WE CAN DRAW FROM RIGHT NOW. Result Comment: The [facility] [employer] Tacrolimus assay is a delayed one-step immunoassay for the quantitative determination of tacrolimus in human whole blood using the chemiluminescent microparticle immunoassay (CMIA) technology with flexible assay protocols, referred to as Chemiflex. Performed By: #### 2 5508, 94212, 35258, 03168, 22366 #### [facility] [address] [place] [address], [facility] [facility] TROPONIN-Ion 08-06-2020 Troponin I.cardiac [Mass/Vol] 42.94 ng/mL Critically high 0.00-0.04 [facility] Comment on above: Result Comment: [place] EVIOUS CRITICAL RESULT REFERENCE RANGES: 0.00 - 0.04 ng/ml NORMAL 0.05 - 0.50 ng/ml INDETERMINATE > 0.50 ng/ml CONSISTENT WITH AN M.I. Performed By: #### 2 5508, 68176, 17865, 98440, 10387 #### [facility] [address] [place] [address], [facility] Troponin I.cardiac [Mass/Vol] 46.69 ng/mL Critically high 0.00-0.04 [facility] Comment on above: Order Comment: No: D o not add to previous draw Result Comment: [place] EVIOUS CRITICAL RESULT REFERENCE RANGES: 0.00 - 0.04 ng/ml NORMAL 0.05 - 0.50 ng/ml INDETERMINATE > 0.50 ng/ml CONSISTENT WITH AN M.I. Performed By: #### 3 5200 ####[facility] UFH HEPARIN ASSAYon 08-07-19 UNFRACTIONATED HEPARIN 0.34 IU/mL Normal 0.30-0.70 [facility] Comment on above: Order Comment: No: D o not add to previous draw Result Comment: [place] roxaban and Apixaban will interfere with the anti Xa assay used to monitor UFH and LMWH. Performed By: #### 6 1405 #### [facility] [address] CHLORIDE URon 08-05-2020 Chloride [Moles/Vol] 26.0 mmol/L Normal [facility] Comment on above: Order Comment: Yes: Add to Previous draw if able Result Comment: Ther e are no established reference values for random urine specimens Performed By: #### 2 5508, 32907, 34090, 39181, 13359 #### [facility] [address] [facility] [address] COMP METABOLIC PANELon 08-05 Albumin [Mass/Vol] 3.0 g/dL Low 3.5-5.7 [facility] Comment on above: Order Comment: Yes: Add to Previous draw if able Performed By: #### 2 5508, 35611, 63385, 13180, 51578 #### [facility] [address] ALKALINE PHOSPH 78 IU/L Normal 34-104 [facility] Comment on above: Order Comment: Yes: Add to Previous draw if able Performed By: #### 2 5508, 58630, 28369, 26865, 94203 #### [facility] [address] [place] [address], [facility] ALT [Catalytic activity/Vol] 35 U/L Normal 7-52 [facility] Comment on above: Order Comment: Yes: Add to Previous draw if able Performed By: #### 2 5508, 76808, 98810, 09141, 51706 #### [facility] [address] [place] [address], [place] AST [Catalytic activity/Vol] 54 U/L High 13-39 [facility] Comment on above: Order Comment: Yes: Add to Previous draw if able Performed By: #### 2 5508, 89687, 46117, 19729, 63800 #### [facility] [address] [place] [address], [place] Bilirubin [Mass/Vol] 1.0 mg/dL Normal 0.3-1.0 [facility] Comment on above: Order Comment: Yes: Add to Previous draw if able Performed By: #### 2 5508, 08043, 65318, 54239, 14213 #### [facility] [address] [place] [address], [place] Calcium [Mass/Vol] 8.2 mg/dL Low 8.6-10.3 [facility] Comment on above: Order Comment: Yes: Add to Previous draw if able Performed By: #### 2 5508, 58267, 21644, 22212, 79372 #### [facility] [address] [place] [address], [place] Chloride [Moles/Vol] 105 mmol/L Normal 98-107 [facility] Comment on above: Order Comment: Yes: Add to Previous draw if able Performed By: #### 2 5508, 48319, 65163, 04338, 98313 #### [facility] [address] [place] [address], [place] CO2 [Moles/Vol] 19 mmol/L Low 21-31 [facility] Comment on above: Order Comment: Yes: Add to Previous draw if able Performed By: #### 2 5508, 86485, 55114, 77714, 93342 #### [facility] [address] [place] [address], [place] Creatinine [Mass/Vol] 0.89 mg/dL Normal 0.70-1.30 [facility] Comment on above: Order Comment: Yes: Add to Previous draw if able Performed By: #### 2 5508, 21684, 89561, 97626, 92973 #### [facility] [address] [place] [address], [place] GFR/1.73 sq M.predicted among blacks MDRD (S/P/Bld) [Vol rate/Area] mL/min/{1.73_m2} Normal >60 [facility] Comment on above: Order Comment: Yes: Add to Previous draw if able Performed By: #### 2 5508, 72028, 50399, 49293, 42776 #### [facility] [address] [place] [address], [place] GFR/1.73 sq M.predicted among non-blacks MDRD (S/P/Bld) [Vol rate/Area] mL/min/{1.73_m2} Normal >60 [facility] Comment on above: Order Comment: Yes: Add to Previous draw if able Performed By: #### 2 5508, 44268, 92891, 61365, 78678 #### [facility] [address] [place] [address], [place] Glucose [Mass/Vol] 174 mg/dL High 70-100 [facility] Comment on above: Order Comment: Yes: Add to Previous draw if able Performed By: #### 2 5508, 41428, 42520, 84445, 77829 #### [facility] [address] [place] [address], [place] Potassium [Moles/Vol] 4.9 mmol/L Normal 3.5-5.1 [facility] Comment on above: Order Comment: Yes: Add to Previous draw if able Performed By: #### 2 5508, 59267, 83518, 03035, 90562 #### [facility] [address] [place] [address], [place] Protein [Mass/Vol] 5.5 g/dL Low 6.0-8.3 [facility] Comment on above: Order Comment: Yes: Add to Previous draw if able Performed By: #### 2 5508, 04830, 24187, 70185, 95613 #### [facility] [address] [place] [address], [facility] Sodium [Moles/Vol] 136 mmol/L Normal 136-145 [facility] Comment on above: Order Comment: Yes: Add to Previous draw if able Performed By: #### 2 5508, 33526, 09377, 80789, 66928 #### [facility] [address] [place] [address], [place] Urea nitrogen [Mass/Vol] 35 mg/dL High 7-25 [facility] Comment on above: Order Comment: Yes: Add to Previous draw if able Performed By: #### 2 5508, 94512, 85006, 14179, 75359 #### [facility] [address] [place] [address], [facility] LIVER BATTERYon 08-05-2020 Albumin [Mass/Vol] 3.2 g/dL Low 3.5-5.7 [facility] Comment on above: Performed By: #### 2 5508, 29289, 74180, 93714, 63585 #### [facility] [address] [place] [address], [place] ALKALINE PHOSPH 84 IU/L Normal 34-104 [facility] Comment on above: Performed By: #### 2 5508, 98734, 92421, 29748, 81437 #### [facility] [address] [place] [address], [place] ALT [Catalytic activity/Vol] 40 U/L Normal 7-52 [facility] Comment on above: Performed By: #### 2 5508, 85619, 28174, 42397, 20289 #### [facility] [address] [place] [address], [place] AST [Catalytic activity/Vol] 36 U/L Normal 13-39 [facility] Comment on above: Performed By: #### 2 5508, 04360, 28656, 34233, 71560 #### [facility] [address] [place] [address], [facility] Bilirubin [Mass/Vol] 0.9 mg/dL Normal 0.3-1.0 [facility] Comment on above: Performed By: #### 2 5508, 02923, 74925, 53628, 62900 #### [facility] [address] [place] [address], [facility] Bilirubin.direct [Mass/Vol] 0.3 mg/dL High 0.0-0.2 [facility] Comment on above: Performed By: #### 2 5508, 31611, 63969, 25327, 60415 #### [facility] [address] [place] [address], [facility] Protein [Mass/Vol] 5.9 g/dL Low 6.0-8.3 [facility] Comment on above: Performed By: #### 2 5508, 43794, 09792, 21673, 21125 #### [facility] [address] [facility] [address] PORTABLE CHEST 1 VIEWon 07-17 PORTABLE CHEST 1 VIEW [facility] Department of Radiology [address] [place] [id number] == Patient Name: VISHAL DUKE : 1960 Sex: M Age: Race: White Pt. Location: [id number] Patient Status: I Ordered Date: 08/05/2020 1:35:00 [...] reports Electronically signed: Mauricio Koo. Transcribed by: [email or web address], User Resident: ELADIA CABRERA Electronically Signed by: MAURICIO KOO @ 08/05/2020 02:08 AM I personally read this/these film(s) with this resident Normal [facility] Comment on above: Order Comment: Yes: Add to Previous draw if able POTASSIUM URon 08-05-2020 Potassium [Moles/Vol] 61.0 mmol/L Normal [facility] Comment on above: Order Comment: Yes: Add to Previous draw if able Result Comment: Ther e are no established reference values for random urine specimens Performed By: #### 2 5508, 09063, 18667, 08916, 59235 #### [facility] [address] [facility] [place] [address], [facility] PROCALCITONINon 08-05-2020 PROCALCITONIN 0.54 ng/mL High 0.00-0.10 [facility] Comment on above: Order Comment: Yes: [...] initial PCT<0.5ng/mL Performed By: #### 2 5508, 04282, 09804, 37466, 57626 #### [facility] [address] [place] [address], [facility] SODIUM URINE RANDOMon 2020 Sodium (U) [Moles/Vol] 54 mmol/L Normal [facility] Comment on above: Order Comment: Yes: Add to Previous draw if able Result Comment: Ther e are no established reference values for random urine specimens Performed By: #### 2 5508, 44221, 54813, 59833, 67822 #### [facility] [address] [place] [address], [facility] TACROLIMUSon 08-05-2020 Tacrolimus (Bld) [Mass/Vol] 11.2 ng/mL Normal 5.0-20.0 [facility] Comment on above: Order Comment: Unkno wn Result Comment: The [employer] Tacrolimus assay is a delayed one-step immunoassay for the quantitative determination of tacrolimus in human whole blood using the chemiluminescent microparticle immunoassay (CMIA) technology with flexible assay protocols, referred to as Chemiflex. Performed By: #### 2 5508, 99905, 79865, 49665, 42910 #### [facility] [address] [place] [address], [facility] TROPONIN-Ion 08-05-2020 Troponin I.cardiac [Mass/Vol] 39.61 ng/mL Critically high 0.00-0.04 [facility] Comment on above: Order Comment: Yes: Add to Previous draw if able Result Comment: [place] EVIOUS CRITICAL RESULT REFERENCE RANGES: 0.00 - 0.04 ng/ml NORMAL 0.05 - 0.50 ng/ml INDETERMINATE > 0.50 ng/ml CONSISTENT WITH AN M.I. Performed By: #### 2 5508, 69719, 03602, 42053, 86355 #### [facility] [address] [place] [address], [facility] Troponin I.cardiac [Mass/Vol] 36.67 ng/mL Critically high 0.00-0.04 [facility] Comment on above: Order Comment: No: D o not add to previous draw Result Comment: [place] EVIOUS CRITICAL RESULT REFERENCE RANGES: 0.00 - 0.04 ng/ml NORMAL 0.05 - 0.50 ng/ml INDETERMINATE > 0.50 ng/ml CONSISTENT WITH AN M.I. Performed By: #### 2 5508, 67747, 34333, 10853, 41546 #### [facility] [address] [place] [address], [facility] Troponin I.cardiac [Mass/Vol] 2.03 ng/mL Critically high 0.00-0.04 [facility] Comment on above: Order Comment: Yes: Add to Previous draw if able Result Comment: M-TR OPONIN INITIAL CRITICAL HIGH; RESPUN AND RETESTED M-CRITICAL RESULT(S) REVIEWED, CALLED TO AND READ BACK BY ROSA M COTA RN AT 0902 REFERENCE RANGES: 0.00 - 0.04 ng/ml NORMAL 0.05 - 0.50 ng/ml INDETERMINATE > 0.50 ng/ml CONSISTENT WITH AN M.I. Performed By: #### 2 5508, 60325, 32506, 08841, 06925 #### [facility] [address] [place] [address], [facility] Troponin I.cardiac [Mass/Vol] 0.03 ng/mL Normal 0.00-0.04 [facility] Comment on above: Order Comment: Yes: Add to Previous draw if able Result Comment: REFE RENCE RANGES: 0.00 - 0.04 ng/ml NORMAL 0.05 - 0.50 ng/ml INDETERMINATE > 0.50 ng/ml CONSISTENT WITH AN M.I. Performed By: #### 2 5508, 29978, 42816, 01462, 00446 #### [facility] [address] [facility] [address] UFH HEPARIN ASSAYon 08-06-19 UNFRACTIONATED HEPARIN 0.37 IU/mL Normal 0.30-0.70 [facility] Comment on above: Result Comment: [place] roxaban and Apixaban will interfere with the anti Xa assay used to monitor UFH and LMWH. Performed By: #### 3 0477 ####[facility] UNFRACTIONATED HEPARIN 0.17 IU/mL Low 0.30-0.70 [facility] Comment on above: Result Comment: [place] roxaban and Apixaban will interfere with the anti Xa assay used to monitor UFH and LMWH. Performed By: #### 6 1405 #### [facility] [address] [place] [address], [facility] COMP METABOLIC PANELon 08-04 Albumin [Mass/Vol] 3.1 g/dL Low 3.5-5.7 [facility] Comment on above: Order Comment: Yes: Add to Previous draw if able Performed By: #### 2 5508, 28409, 93650, 87784, 32929 #### [facility] [address] [place] [address], [facility] ALKALINE PHOSPH 86 IU/L Normal 34-104 [facility] Comment on above: Order Comment: Yes: Add to Previous draw if able Performed By: #### 2 5508, 64446, 47253, 05018, 99303 #### [facility] [address] [place] [address], [place] ALT [Catalytic activity/Vol] 47 U/L Normal 7-52 [facility] Comment on above: Order Comment: Yes: Add to Previous draw if able Performed By: #### 2 5508, 18536, 50352, 38000, 16127 #### [facility] [address] [place] [address], [place] AST [Catalytic activity/Vol] 45 U/L High 13-39 [facility] Comment on above: Order Comment: Yes: Add to Previous draw if able Performed By: #### 2 5508, 93935, 38527, 93849, 01825 #### [facility] [address] [place] [address], [place] Bilirubin [Mass/Vol] 0.5 mg/dL Normal 0.3-1.0 [facility] Comment on above: Order Comment: Yes: Add to Previous draw if able Performed By: #### 2 5508, 77851, 67931, 08712, 42501 #### [facility] [address] [place] [address], [place] Calcium [Mass/Vol] 8.4 mg/dL Low 8.6-10.3 [facility] Comment on above: Order Comment: Yes: Add to Previous draw if able Performed By: #### 2 5508, 27272, 41514, 26890, 41772 #### [facility] [address] [place] [address], [place] Chloride [Moles/Vol] 102 mmol/L Normal 98-107 [facility] Comment on above: Order Comment: Yes: Add to Previous draw if able Performed By: #### 2 5508, 95467, 32833, 18126, 06354 #### [facility] [address] [place] [address], [place] CO2 [Moles/Vol] 24 mmol/L Normal 21-31 [facility] Comment on above: Order Comment: Yes: Add to Previous draw if able Performed By: #### 2 5508, 44912, 66411, 09731, 44721 #### [facility] [address] [place] [address], [place] Creatinine [Mass/Vol] 1.04 mg/dL Normal 0.70-1.30 [facility] Comment on above: Order Comment: Yes: Add to Previous draw if able Performed By: #### 2 5508, 99866, 97347, 99081, 81689 #### [facility] [address] [place] [address], [place] GFR/1.73 sq M.predicted among blacks MDRD (S/P/Bld) [Vol rate/Area] mL/min/{1.73_m2} Normal >60 [facility] Comment on above: Order Comment: Yes: Add to Previous draw if able Performed By: #### 2 5508, 60996, 54850, 44002, 70281 #### [facility] [address] [place] [address], [place] GFR/1.73 sq M.predicted among non-blacks MDRD (S/P/Bld) [Vol rate/Area] mL/min/{1.73_m2} Normal >60 [facility] Comment on above: Order Comment: Yes: Add to Previous draw if able Performed By: #### 2 5508, 48787, 93013, 17900, 83757 #### [facility] [address] [place] [address], [place] Glucose [Mass/Vol] 196 mg/dL High 70-100 [facility] Comment on above: Order Comment: Yes: Add to Previous draw if able Performed By: #### 2 5508, 26279, 80293, 09597, 41523 #### [facility] [address] [place] [address], [place] Potassium [Moles/Vol] 4.6 mmol/L Normal 3.5-5.1 [facility] Comment on above: Order Comment: Yes: Add to Previous draw if able Performed By: #### 2 5508, 10738, 69095, 56300, 93144 #### [facility] [address] [place] [address], [place] Protein [Mass/Vol] 5.8 g/dL Low 6.0-8.3 [facility] Comment on above: Order Comment: Yes: Add to Previous draw if able Performed By: #### 2 5508, 73623, 57740, 93710, 16535 #### [facility] [address] [place] [address], [place] Sodium [Moles/Vol] 135 mmol/L Low 136-145 [facility] Comment on above: Order Comment: Yes: Add to Previous draw if able Performed By: #### 2 5508, 89464, 52307, 17887, 82226 #### [facility] [address] [place] [address], [place] Urea nitrogen [Mass/Vol] 38 mg/dL High 7-25 [facility] Comment on above: Order Comment: Yes: Add to Previous draw if able Performed By: #### 2 5508, 03986, 67709, 60064, 14137 #### [facility] [address] [place] [address], [place] CPKon 08-04-2020 CK [Catalytic activity/Vol] 80 U/L Normal 30-223 [facility] Comment on above: Performed By: #### 2 5508, 65040, 05073, 50380, 45013 #### [facility] [address] [place] [address], [place] LDH BLOODon 08-04-2020 LDH 569 Units/L High 140-271 [facility] Comment on above: Performed By: #### 2 5508, 89062, 04201, 56753, 44368 #### [facility] [address] [place] [address], [facility] MAGNESIUM BLOODon 08-04-2020 Magnesium [Mass/Vol] 2.3 mg/dL Normal 1.9-2.7 [facility] Comment on above: Performed By: #### 2 5508, 08610, 57753, 87337, 74254 #### [facility] [address] [facility] [address] TACROLIMUSon 08-04-2020 Tacrolimus (Bld) [Mass/Vol] 17.4 ng/mL Normal 5.0-20.0 [facility] Comment on above: Order Comment: Yes: Add to Previous draw if able Result Comment: The [employer] Tacrolimus assay is a delayed one-step immunoassay for the quantitative determination of tacrolimus in human whole blood using the chemiluminescent microparticle immunoassay (CMIA) technology with flexible assay protocols, referred to as Chemiflex. Performed By: #### 2 5508, 99774, 77827, 88987, 37526 #### [facility] [address] [facility] [address] TROPONIN-Ion 08-04-2020 Troponin I.cardiac [Mass/Vol] 0.01 ng/mL Normal 0.00-0.04 [facility] Comment on above: Result Comment: REFE RENCE RANGES: 0.00 - 0.04 ng/ml NORMAL 0.05 - 0.50 ng/ml INDETERMINATE > 0.50 ng/ml CONSISTENT WITH AN M.I. Performed By: #### 2 5508, 67485, 01221, 74888, 78523 #### [facility] [address] *SARS-CoV-2 COVID-19on 08-03 SARS-CoV-2 (COVID-19) RNA ADELINE+probe Ql (Unsp spec) Detected Critically abnormal Not Detected [facility] Comment on above: Result Comment: Call ed Lara Reid on 08-03 at 1020. Performed By: #### 2 5508, 87022, 86282, 74635, 80123 #### [facility] [address] [place] [address], [facility] BASIC METABOLIC PANELon 07-16 Calcium [Mass/Vol] 8.4 mg/dL Low 8.6-10.3 [facility] Comment on above: Order Comment: No: D o not add to previous draw Pt in bath room askme to come back Performed By: #### 3 5200 #### [facility] [address] [place] [address], [facility] Chloride [Moles/Vol] 97 mmol/L Low 98-107 [facility] Comment on above: Order Comment: No: D o not add to previous draw Pt in bath room askme to come back Performed By: #### 3 5200 #### [facility] [address] [place] [address], [place] CO2 [Moles/Vol] 22 mmol/L Normal 21-31 [facility] Comment on above: Order Comment: No: D o not add to previous draw Pt in bath room askme to come back Performed By: #### 3 5200 #### [facility] [address] [place] [address], [place] Creatinine [Mass/Vol] 0.90 mg/dL Normal 0.70-1.30 [facility] Comment on above: Order Comment: No: D o not add to previous draw Pt in bath room askme to come back Performed By: #### 3 5200 #### [facility] [address] [place] [address], [place] GFR/1.73 sq M.predicted among blacks MDRD (S/P/Bld) [Vol rate/Area] mL/min/{1.73_m2} Normal >60 [facility] Comment on above: Order Comment: No: D o not add to previous draw Pt in bath room askme to come back Performed By: #### 3 5200 #### [facility] [address] [place] [address], [facility] GFR/1.73 sq M.predicted among non-blacks MDRD (S/P/Bld) [Vol rate/Area] mL/min/{1.73_m2} Normal >60 [facility] Comment on above: Order Comment: No: D o not add to previous draw Pt in bath room askme to come back Performed By: #### 3 5200 #### [facility] [address] [place] [address], [facility] Glucose [Mass/Vol] 167 mg/dL High 70-100 [facility] Comment on above: Order Comment: No: D o not add to previous draw Pt in bath room askme to come back Performed By: #### 3 5200 #### [facility] [address] [place] [address], [facility] Potassium [Moles/Vol] 4.4 mmol/L Normal 3.5-5.1 [facility] Comment on above: Order Comment: No: D o not add to previous draw Pt in bath room askme to come back Performed By: #### 3 5200 #### [facility] [address] [place] [address], [facility] Sodium [Moles/Vol] 131 mmol/L Low 136-145 [facility] Comment on above: Order Comment: No: D o not add to previous draw Pt in bath room askme to come back Performed By: #### 3 5200 #### [facility] [address] [place] [address], [facility] Urea nitrogen [Mass/Vol] 22 mg/dL Normal 7-25 [facility] Comment on above: Order Comment: No: D o not add to previous draw Pt in bath room askme to come back Performed By: #### 3 5200 #### [facility] [address] [place] [address], [facility] CBC W/DIFFon 08-03-2020 ABS IMM GRANS 0.1 10*3/uL Normal 0.0-0.2 [facility] Comment on above: Order Comment: No: D o not add to previous draw Performed By: #### 6 1405 #### [facility] [address] [facility] [place] [address], [facility] ABS NEUTROPHILS 4.8 10*3/uL Normal 1.6-7.6 [facility] Comment on above: Order Comment: No: D o not add to previous draw Performed By: #### 6 1405 #### [facility] [address] [place] [address], [facility] Basophils (Bld) [#/Vol] 0.0 10*3/uL Normal 0.0-0.2 [facility] Comment on above: Order Comment: No: D o not add to previous draw Performed By: #### 6 1405 #### [facility] [address] [place] [address], [facility] Basophils/100 WBC (Bld) 0.4 % Normal 0.0-1.0 [facility] Comment on above: Order Comment: No: D o not add to previous draw Performed By: #### 6 1405 #### [facility] [address] [facility] [place] [place] [address], [facility] Eosinophils (Bld) [#/Vol] 0.0 10*3/uL Normal 0.0-0.5 [facility] Comment on above: Order Comment: No: D o not add to previous draw Performed By: #### 6 1405 #### [facility] [address] [facility] [place] [address], [facility] Eosinophils/100 WBC (Bld) 0.0 % Normal 0.0-6.0 [facility] Comment on above: Order Comment: No: D o not add to previous draw Performed By: #### 6 1405 #### [facility] [address] [place] [address], [facility] Erythrocyte distribution width (RBC) [Ratio] 13.6 % Normal 11.5-15.0 [facility] Comment on above: Order Comment: No: D o not add to previous draw Performed By: #### 6 1405 #### [facility] [address] [place] [address], [facility] Hematocrit (Bld) [Volume fraction] 45.6 % Normal 39.0-50.0 [facility] Comment on above: Order Comment: No: D o not add to previous draw Performed By: #### 6 1405 #### [facility] [address] [place] [address], [facility] Hemoglobin (Bld) [Mass/Vol] 15.9 g/dL Normal 13.0-17.0 [facility] Comment on above: Order Comment: No: D o not add to previous draw Performed By: #### 6 1405 #### [facility] [address] [place] [address], [facility] IMMATURE GRANS 0.9 % Normal 0.0-1.0 [facility] Comment on above: Order Comment: No: D o not add to previous draw Performed By: #### 6 1405 #### [facility] [address] [place] [address], [facility] Lymphocytes (Bld) [#/Vol] 0.4 10*3/uL Low 1.2-4.0 [facility] Comment on above: Order Comment: No: D o not add to previous draw Performed By: #### 6 1405 #### [facility] [address] [place] [id number], [facility] Lymphocytes/100 WBC (Bld) 7.1 % Low 20.0-45.0 [facility] Comment on above: Order Comment: No: D o not add to previous draw Performed By: #### 6 1405 #### [facility] [address] [place] [address], [facility] MCH (RBC) [Entitic mass] 29.5 pg Normal 27.0-33.0 [facility] Comment on above: Order Comment: No: D o not add to previous draw Performed By: #### 6 1405 #### [facility] [address] [place] [id number], [facility] MCHC (RBC) [Mass/Vol] 34.9 g/dL Normal 32.0-35.0 [facility] Comment on above: Order Comment: No: D o not add to previous draw Performed By: #### 6 1405 #### [facility] [address] [facility] [place] [address], [facility] MCV (RBC) [Entitic vol] 84.6 fL Normal 82.0-98.0 [facility] Comment on above: Order Comment: No: D o not add to previous draw Performed By: #### 6 1405 #### [facility] [address] [place] [address], [facility] Monocytes (Bld) [#/Vol] 0.2 10*3/uL Normal 0.1-1.0 [facility] Comment on above: Order Comment: No: D o not add to previous draw Performed By: #### 6 1405 #### [facility] [address] [place] [address], [facility] MONOS 4.2 % Low 5.0-12.0 [facility] Comment on above: Order Comment: No: D o not add to previous draw Performed By: #### 6 1405 #### [facility] [address] [facility] [place] [address], [facility] Neutrophils/100 WBC (Bld) 87.4 % High 40.0-72.0 [facility] Comment on above: Order Comment: No: D o not add to previous draw Performed By: #### 6 1405 #### [facility] [address] Nucleated RBC/100 WBC (Bld) [Ratio] 0 % Normal 0-0 [facility] Comment on above: Order Comment: No: D o not add to previous draw Performed By: #### 6 1405 #### [facility] [address] [place] [address], [facility] PLAT CNT 286 10*3/uL Normal 150-400 [facility] Comment on above: Order Comment: No: D o not add to previous draw Performed By: #### 6 1405 #### [facility] [address] [facility] [place] [address], [facility] RBC (Bld) [#/Vol] 5.39 10*6/uL Normal 4.20-5.70 [facility] Comment on above: Order Comment: No: D o not add to previous draw Performed By: #### 6 1405 #### [facility] [address] [place] [address], [facility] WBC (Bld) [#/Vol] 5.47 10*3/uL Normal 4.00-10.60 [facility] Comment on above: Order Comment: No: D o not add to previous draw Performed By: #### 6 1405 #### [facility] [address] CPKon 08-03-2020 CK [Catalytic activity/Vol] 168 U/L Normal 30-223 [facility] Comment on above: Order Comment: No: D o not add to previous draw Pt in bath room askme to come back Performed By: #### 3 5200 #### [facility] [address] D DIMER TESTon 08-03-2020 D-DIMER TEST 5.09 mcg/mL FEU High 0.27-0.49 [facility] Comment on above: Order Comment: No: D o not add to previous draw Result Comment: D-Di pricsilla values of less than 0.50 ug/ml (FEU) are considered to be a negative predictor of thrombosis. However, the D-Dimer result should be used in conjunction with pretest probability and should not be used alone to diagnose a thrombotic event. D-DIMER RESULT REPEATED AND CONFIRMED Performed By: #### 5 3629 ####[facility] [place] [address], [facility] FERRITINon 08-03-2020 Ferritin [Mass/Vol] 1079 ng/mL High 24-336 [facility] Comment on above: Order Comment: No: D o not add to previous draw Pt in bath room askme to come back Performed By: #### 3 5200 #### [facility] [address] [facility] [place] [address], [facility] LDH BLOODon 08-03-2020 LDH 623 Units/L High 140-271 [facility] Comment on above: Order Comment: No: D o not add to previous draw Pt in bath room askme to come back Performed By: #### 3 5200 #### [facility] [address] [place] [address], [facility] LIVER BATTERYon 08-03-2020 Albumin [Mass/Vol] 3.6 g/dL Normal 3.5-5.7 [facility] Comment on above: Order Comment: Yes: Add to Previous draw if able Performed By: #### 2 5508, 89058, 52278, 44423, 93220 #### [facility] [address] [place] [address], [facility] ALKALINE PHOSPH 91 IU/L Normal 34-104 [facility] Comment on above: Order Comment: Yes: Add to Previous draw if able Performed By: #### 2 5508, 74995, 55927, 04142, 40884 #### [facility] [address] [place] [address], [facility] ALT [Catalytic activity/Vol] 34 U/L Normal 7-52 [facility] Comment on above: Order Comment: Yes: Add to Previous draw if able Performed By: #### 2 5508, 24424, 51512, 96955, 41239 #### [facility] [address] [place] [address], [place] AST [Catalytic activity/Vol] 40 U/L High 13-39 [facility] Comment on above: Order Comment: Yes: Add to Previous draw if able Performed By: #### 2 5508, 62445, 14423, 85551, 16938 #### [facility] [address] [place] [address], [place] Bilirubin [Mass/Vol] 0.7 mg/dL Normal 0.3-1.0 [facility] Comment on above: Order Comment: Yes: Add to Previous draw if able Performed By: #### 2 5508, 41722, 44956, 64166, 37251 #### [facility] [address] [place] [address], [facility] Bilirubin.direct [Mass/Vol] 0.1 mg/dL Normal 0.0-0.2 [facility] Comment on above: Order Comment: Yes: Add to Previous draw if able Performed By: #### 2 5508, 52481, 34701, 45359, 11687 #### [facility] [address] [place] [address], [place] Protein [Mass/Vol] 6.3 g/dL Normal 6.0-8.3 [facility] Comment on above: Order Comment: Yes: Add to Previous draw if able Performed By: #### 2 5508, 51389, 56286, 34849, 34913 #### [facility] [address] [place] [address], [place] MAGNESIUM BLOODon 08-03-2020 Magnesium [Mass/Vol] 2.3 mg/dL Normal 1.9-2.7 [facility] Comment on above: Order Comment: No: D o not add to previous draw Pt in bath room askme to come back Performed By: #### 3 5200 #### [facility] [address] [place] [address], [place] PHOSPHORUS BLOODon Phosphate [Mass/Vol] 3.6 mg/dL Normal 2.5-5.0 [facility] Comment on above: Order Comment: No: D o not add to previous draw Pt in bath room askme to come back Performed By: #### 3 5200 #### [address] [address], [facility] PORTABLE CHEST 1 VIEWon 07-16 PORTABLE CHEST 1 VIEW [facility] Department of Radiology [address] [place] [id number] == Patient Name: VISHAL DUKE : 1960 Sex: M Age: Race: White Pt. Location: [id number] Patient Status: I Ordered Date: 08/03/2020 8:00:00 [...] pneumonia. Electronically signed: Dariela Vincent. Transcribed by: [email or web address], User Resident: Electronically Signed by: DARIELA VINCENT @ 08/03/2020 07:52 AM Normal [facility] Comment on above: Order Comment: No: D o not add to previous draw CV'D BY IMM LAB AT 1240 PROCALCITONINon 08-03-2020 PROCALCITONIN 0.31 ng/mL High 0.00-0.10 [facility] Comment on above: Order Comment: No: [...] and initial PCT<0.5ng/mL Performed By: #### 2 4718, 68353, 11526, 12494, 34185 #### [facility] [address] [place] [address], [facility] TACROLIMUSon 08-03-2020 Tacrolimus (Bld) [Mass/Vol] 24.9 ng/mL High 5.0-20.0 [facility] Comment on above: Order Comment: Yes: Add to Previous draw if able Result Comment: The [employer] Tacrolimus assay is a delayed one-step immunoassay for the quantitative determination of tacrolimus in human whole blood using the chemiluminescent microparticle immunoassay (CMIA) technology with flexible assay protocols, referred to as Chemiflex. Performed By: #### 2 5508, 73175, 54368, 03860, 92715 #### [facility] [address] TROPONIN-Ion 08-03-2020 Troponin I.cardiac [Mass/Vol] 0.01 ng/mL Normal 0.00-0.04 [facility] Comment on above: Order Comment: No: D o not add to previous draw Pt in bath room askme to come back Result Comment: REFE RENCE RANGES: 0.00 - 0.04 ng/ml NORMAL 0.05 - 0.50 ng/ml INDETERMINATE > 0.50 ng/ml CONSISTENT WITH AN M.I. Performed By: #### 3 5200 #### [facility] [address] [facility] [place] [address], [facility] URINALYSIS REFLEXon 08-04-19 21 Appearance (U) CLEAR Normal CLEAR [facility] Comment on above: Order Comment: No: D o not add to previous draw CV'D BY IMM LAB AT 1240 Performed By: #### 6 1405 #### [facility] [address] [facility] [address], [facility] Bilirubin Ql (U) Negative Normal NEGATIVE [facility] Comment on above: Order Comment: No: D o not add to previous draw CV'D BY IMM LAB AT 1240 Performed By: #### 6 1405 #### [facility] [address] [place] [address], [facility] Color (U) YELLOW Normal YELLOW [facility] Comment on above: Order Comment: No: D o not add to previous draw CV'D BY IMM LAB AT 1240 Performed By: #### 6 1405 #### [facility] [address] [place] [address], [place] EPIS NONE SEEN Normal FEW,OCC,NONE SEEN [facility] Comment on above: Order Comment: No: D o not add to previous draw CV'D BY IMM LAB AT 1240 Performed By: #### 6 1405 #### [facility] [address] [place] [address], [place] Glucose Ql (U) Negative Normal NEGATIVE [facility] Comment on above: Order Comment: No: D o not add to previous draw CV'D BY IMM LAB AT 1240 Performed By: #### 6 1405 #### [facility] [address] [place] [address], [place] Hemoglobin Ql (U) TRACE, RESULTS CHECKED Abnormal NEGATI VE [facility] Comment on above: Order Comment: No: D o not add to previous draw CV'D BY IMM LAB AT [facility] Performed By: #### 6 1405 #### [facility] [address] [place] [address], [place] KETONE Negative Normal NEGATIVE [facility] Comment on above: Order Comment: No: D o not add to previous draw CV'D BY IMM LAB AT 1240 Performed By: #### 6 1405 #### [facility] [address] [place] [address], [place] LEUK MARIA A Negative Normal NEGATIVE [facility] Comment on above: Order Comment: No: D o not add to previous draw CV'D BY IMM LAB AT 1240 Performed By: #### 6 1405 #### [facility] [address] [place] [address], [place] Nitrite Ql (U) Negative Normal NEGATIVE [facility] Comment on above: Order Comment: No: D o not add to previous draw CV'D BY IMM LAB AT 1240 Performed By: #### 6 1405 #### [facility] [address] [place] [address], [place] pH (U) 6.0 [pH] Normal 5.0-8.0 [facility] Comment on above: Order Comment: No: D o not add to previous draw CV'D BY IMM LAB AT 1240 Performed By: #### 6 1405 #### [facility] [address] [place] [address], [facility] Protein Ql (U) Negative Normal NEGATIVE [facility] Comment on above: Order Comment: No: D o not add to previous draw CV'D BY IMM LAB AT 1240 Performed By: #### 6 1405 #### [facility] [address] [place] [address], [facility] RBC 3-5 Abnormal NONE SEEN [facility] Comment on above: Order Comment: No: D o not add to previous draw CV'D BY IMM LAB AT [facility] Performed By: #### 6 1405 #### [facility] [address] [place] [address], [facility] SPEC GRAV 1.017 Normal 1.015-1.020 [facility] Comment on above: Order Comment: No: D o not add to previous draw CV'D BY IMM LAB AT 1240 Performed By: #### 6 1405 #### [facility] [address] [facility] [place] [place] [address], [facility] WBC UA 0-2 Abnormal NONE SEEN [facility] Comment on above: Order Comment: No: D o not add to previous draw CV'D BY IMM LAB AT [facility] Performed By: #### 6 1405 #### [facility] [address] [facility] [place] [place] [address], [facility] Vital Signs Date Time Vital Sign Value Performing Clinician Darelli roya 01-17-2022 11:53-0400 Blood Pressure Location Reji BROWER [facility] 01-17-2022 11:53-0400 Diastolic blood pressure 81 mm[Hg] Reji BROWER [facility] 01-17-2022 11:53-0400 Heart rate 63 /min Reji BROWER [facility] 01-17-2022 11:53-0400 Respiratory rate 18 /min Reji BROWER [facility] 01-17-2022 11:53-0400 Systolic blood pressure 129 mm[Hg] Reji BROWER [facility] 04-23-2021 17:40-0500 Diastolic blood pressure 70 mm[Hg] Rosa M Gonzales Work Phone: [facility] 250 DO Work Phone: 04-23-2021 17:40-0500 Systolic blood pressure 138 mm[Hg] Rosa M Gonzales Work Phone: [facility] 250 DO Work Phone: 04-23-2021 15:22-0500 Body height 180.34 cm Rosa M Gonzales Work Phone: [facility] 250 DO Work Phone: 04-23-2021 15:22-0500 Body mass index (BMI) [Ratio] 29.57 kg/m2 Rosa M Gonzales Work Phone: [facility] 250 DO Work Phone: 04-23-2021 15:22-0500 Body surface area Derived from formula 2.16 m2 Rosa M Gonzales Work Phone: [facility] 250 DO Work Phone: 04-23-2021 15:22-0500 Body weight 96.16 kg Rosa M Gonzales Work Phone: [facility] 250 DO Work Phone: 04-23-2021 15:22-0500 Diastolic blood pressure 77 mm[Hg] RosaM Farrell Janet Work Phone: [facility] DO Work Phone: 04-23-2021 15:22-0500 Heart rate 61 /min Rosa M Thorntonhman Work Phone: [facility] 250 DO Work Phone: 04-23-2021 15:22-0500 Systolic blood pressure 142 mm[Hg] Rosa M Farrell Janet Work Phone: [facility] 250 DO Work Phone: Encounters Encounter Date Encounter Type Care Provider Facility Start: 01-29-2024 ambulatory Rjei La ty:[facility] Start: 06-05-2023 End: 06-05-2023 ambulatory AB [facility] Start: 05-29-2023 Clinisync Result Encounter Generic External Data Provider [facility] External Department Unsolicited Start: 05-29-2023 Clinisync Result Encounter Generic External Data Provider [facility] External Department Unsolicited Start: 05-18-2023 End: 05-18-2023 ambulatory OBI [facility] Start: 05-01-2023 End: 05-01-2023 ambulatory ALICIA FISHMAN Not Available Start: 04-26-2023 End: 04-26-2023 ambulatory TEAGAN VILLANUEVA [facility] Start: 03-28-2023 ambulatory PETEY REDDING [facility] Start: 02-09-2023 End: 02-09-2023 ambulatory OBI [facility] Start: 02-02-2023 ambulatory Xochilt Graham Facility:[facility] Start: 01-24-2023 End: 01-25-2023 Evaluation and management of inpatient OBI [facility] Start: 01-06-2023 End: 01-07-2023 ambulatory OBI [facility] Start: 12-22-2022 End: 12-22-2022 ambulatory [facility] Start: 12-05-2022 End: 12-05-2022 [facility] Start: 11-15-2022 End: 11-16-2022 ambulatory SHAUN CASTANON [facility] Start: 10-26-2022 End: 10-26-2022 ambulatory TEAGAN VILLANUEVA [facility] Start: 10-24-2022 End: 10-24-2022 ambulatory MADIE [facility] Start: 09-27-2022 End: 09-27-2022 ambulatory PETEY REDDING [facility] Start: 09-06-2022 End: 09-07-2022 ambulatory [facility] Start: 09-01-2022 End: 09-02-2022 ambulatory [facility] Start: 08-19-2022 End: 08-20-2022 ambulatory [facility] Start: 08-18-2022 End: 08-19-[address] DOCTOR MEYER Facility:[facility] Start: 07-29-2022 End: 07-29-2022 ambulatory [facility] Start: 07-19-2022 End: 07-20-[address] DOCTOR MEYER Facility:[facility] Start: 06-16-2022 End: 06-16-2022 ambulatory [facility] Start: 06-01-2022 End: 06-02-[address] [...] encounter procedure Reji BROWER [facility] Andreea Start: 09-28-2021 End: 09-29-[address] FEDERICO CHESTER Facility: Start: 05-15-2021 End: 06-07-2021 ambulatory ROSA M GONZALES Facility:[facility] Start: 04-23-2021 Office outpatient visit 25 minutes Rosa M Gonzales Work Phone: [facility] 250 DO Work Phone: Start: 12-02-2020 End: 12-04-2020 Evaluation and management of inpatient YONAS HERRERA Facility:[facility] Start: 12-01-2020 End: 12-01-2020 Emergency department patient visit REFERRED SELF Facility:[facility] Start: 10-29-2020 End: 10-30-2020 ambulatory ROSA M GONZALES Facility:[facility] Start: 08-02-2020 End: 08-19-2020 Evaluation and management of inpatient JUAN FERREIRA Facility:[facility] Procedures Date Procedure Procedure Detail Performing Clinician Start: 05-29-2023 TACROLIMUS (FK506), BLOOD Generic External Data Provider Start: 11-08-2022 History of placement of stent in anterior descending branch of left coronary artery Status post insertion of drug-eluting stent into left anterior descending (LAD) artery for coronary artery disease Generic Provider Start: 12-03-2020 INTRODUCTION OF OTHE R GAS INTO RESP TRACT, VIA OPENING SARMED FLOR Start: 08-03-2020 INTRODUCE REMDESIVIR IN PERIP VEIN, PERC, NEW TECH 5 YOJANA Toro TRUJILLO Start: 08-03-2020 INTRODUCTION OF OTHE R GAS INTO RESP TRACT, VIA OPENING YOJANA N HORANI Start: 12-30-2019 History of renal transplant History of kidney transplant Generic Provider Start: 01-01-2018 Transplant of kidney Epifanio BROWER Comment on above: Pt has three kidneys Start: 02-01-2013 Colonoscopy Generic Pr ovider Bilateral vasectomy Reji BROWER Cardiac catheterization Anne gloria Jami ThorntonJanet Work Phone: Coronary artery bypa ss graft Rosa M Jami Gonzales Work Phone: Coronary artery bypa ss grafts x 3 Reji BROWER Creation of graft fi stula for dialysis Rosa M Thorntonhman Work Phone: Extraction of wisdom tooth J durga Jami ThorntonJanet Work Phone: History of renal transplant Renal transplant recipient Rosa M Jami Gonzales Work Phone: History of renal transplant Kidney transplanted( Confirmed ) Reji BROWER Insertion of pacemak er pulse generator Rosa M Jami ThorntonJanet Work Phone: Placement of stent i n cardiac conduit Reji BROWER Total colonoscopy Rosa M Jami Gonzales Work Phone: Transplant of kidney Kane lEian Work Phone: Plan of Treatment Date Care Activity Detail Author Start: 11-09-2023 Medicare Annual Well ness (AWV) Medicare Annual Wellness (AWV) [facility] Start: 10-30-2023 End: 10-30-2023 Patient encounter procedure 10/30/2023 10:05 AM EDT Office Visit [facility] [address] [place] [address] Alicia Fishman MD [address] [place] [address] [facility] Start: 02-01-2023 Screening for malign ant neoplasm of colon [facility] Healthcare Start: 1960 Screening for malign ant neoplasm of colon [facility] Immunizations Immunization Date Immunization Notes Care Provider Fa cility 01-13-2023 influenza, injectabl e, quadrivalent, preservative free Generic Provider [facility] 01-13-2022 influenza, injectabl e, quadrivalent, preservative free [facility] 12-30-2021 Moderna Bivalent Booster Vaccination Generic Provider [facility] 12-30-2021 Moderna SARS-CoV-2 50mcg/0.5mL Booster Generic Provider [facility] 12-30-2021 SARS-CoV-2, Unspecified Generic [facility] 02-01-2021 Seasonal, quadrivale nt, recombinant, injectable influenza vaccine, preservative free Rosa M Gonzales Work Phone: [place] [address] DO Work Phone: 01-06-2021 Moderna COVID-19 Vaccine 100 MCG/0.5ML Intramuscular Suspension Rosa M Gonzales Work Phone: [place] [address] DO Work Phone: 07-10-2020 Moderna COVID-19 Vaccine 100 MCG/0.5ML Intramuscular Suspension Rosa M Gonzales Work Phone: [place] [address] DO Work Phone: 06-12-2020 Moderna COVID-19 Vaccine 100 MCG/0.5ML Intramuscular Suspension Rosa M Gonzales Work Phone: [place] [address] DO Work Phone: 01-27-2020 influenza, seasonal, injectable Rosa M Gonzales Work Phone: [place] [address] DO Work Phone: 01-22-2020 Seasonal trivalent influenza vaccine, adjuvanted, preservative free Generic Provider [facility] 01-16-2020 influenza virus vaccine, unspecified formulation Rosa M Gonzales Work Phone: [place] [address] DO Work Phone: 01-16-2020 influenza, seasonal, injectable Generic Provider [facility] 02-05-2019 Seasonal, quadrivale nt, recombinant, injectable influenza vaccine, preservative free Rosa M Gonzales Work Phone: [place] [address] DO Work Phone: 05-11-2018 influenza, injectabl e, quadrivalent, preservative free Rosa M Gonzales Work Phone: [place] [address] DO Work Phone: 02-16-2018 influenza, injectabl e, quadrivalent, preservative free Rosa M Jami ThorntonJanet Work Phone: [place] [address] DO Work Phone: 06-08-2017 influenza, injectabl e, quadrivalent, preservative free Rosa M Jami ThorntonJanet Work Phone: [facility] DO Work Phone: 12-16-2016 influenza, injectabl e, quadrivalent, contains preservative Rosa M Elian Work Phone: [place] [address] DO Work Phone: 01-28-2015 influenza, seasonal, injectable Rosa M Gonzales Work Phone: [facility] [employer] DO Work Phone: 04-27-2012 influenza virus vaccine, whole virus Rosa M Gonzales Work Phone: [place] [address] DO Work Phone: Payers Date Payer Category Payer Medicare [id number] [address] [facility] [id number] 2022-Present [address] [address] [place] [address] [id number] 2016 Medicare [id number] 1960 Unknown [id number] [id number]. 2.647 1960 Unknown [id number] [id number]. 2.647 1960 Unknown [id number] [id number]. 2.647 1960 Unknown [id number] [id number]. 2.647 1960 Unknown [id number] [id number]. 2.647 1960 Unknown [id number] [id number]. 2.593 1960 Unknown [id number] 2.16.840.1.761279.3.579. 2.593 1960 Unknown [id number] [id number]. 2.593 1960 Unknown [id number] [id number] 1960 Unknown [id number]. 2.593 1960 Unknown [id number]. 2.593 1960 Unknown [id number] [id number]. 2.593 1960 Unknown [id number]. 2.593 1960 Unknown [id number] [id number]. 2.593 1960 Unknown [id number] [id number]. 2.1259 1960 Unknown [id number]. 2.727 1959 Medicare [id number] 1959 Private Health Insurance [id number] Unknown Social History Date Type Detail Facility Start: 11-01-2022 End: 05-01-2023 No alcohol use No alcohol use [facility] Comment on above: 1-2 cups of coffee d aily.; Quit in 2008; Start: 01-01-2020 End: 11-06-2022 Tobacco smoking status Ex-smoker (finding) [facility] Start: 11-01-2022 End: 02-17-2023 Sex Assigned At Male [facility] End: 04-17-2007 History of tobacco use Current smoker [facility] End: 04-17-2007 History of tobacco use Cigarette Smoker [facility] Start: 11-06-2022 Tobacco use and exposure Smoke less tobacco non-user [facility] Start: 05-01-2023 Alcohol intake Ex-drinker (finding) [facility] Within the last year , have you been afraid of your partner or ex-partner? No [facility] Do you belong to any clubs or organizations such as bahai groups, unions, fraternal or athletic groups, or school groups? Yes [facility] Are you now , , , , never or living with a partner? [facility] How often to you hav e a drink containing alcohol? Monthly or less [facility] How many standard dr inks containing alcohol do you have on a typical day? 1 or 2 [facility] How often do you hav e 6 or more drinks on 1 occasion? Never [facility] How hard is it for y ou to pay for the very basics like food, housing, medical care, and heating Not hard at all [facility] Do you feel stress - tense, restless, nervous, or anxious, or unable to sleep at night because your mind is troubled all the time - these days [OSQ] Not at all [facility] (I/We) worried wheth er (my/our) food would run out before (I/we) got money to buy more. Never true [facility] Start: 02-16-2023 Alcohol Comment Caffeine intak e : 1-2 cups per day [facility] Start: 1960 Sex Assigned At Not on file [facility] Start: 06-29-2022 Gender identity Identifies as male gender (finding) [facility] Functional Status Date Assessment Result Facility 01-17-2022 Functional Status N/A [facility] Clinical Notes 08-20-2020 to 06-05-2023 Note Date & Type Note Facility 06-05-2023 Note [facility] Note Chief Complaint: Patient here for 6 mo follow up CAD, HLD, and HTN. His device was interrogated last month in the office. Had kidney surgery in Jan 2023 and has been breathing great since then. But he states his HR was going low since then also. He gets dizzy spells at time but denies syncope. HPI: Vishal Duke is a 62 y.o. male Here in routine follow-up He has been doing very well after surgery to remove polycystic kidneys; amazingly, it took 9 hours!. He had no perioperative cardiovascular issues. If he overexerts himself, he feels the burning that is typical for his angina. He stops and it goes away within minutes. Since surgery, he has been able to bend over, and do mild to moderate activities with no chest pain or shortness of breath. He has noticed that his heart rate has been lower than it was before surgery. Removal of the kidneys removed 23 pounds of weight. Cardiology ROS: Review of Systems Cardiovascular: Positive for palpitations (occasional). Neurological: Positive for dizziness and light-headedness (occasional). All other systems reviewed and [...] He reports that he quit smoking about 16 years ago. His smoking use included cigarettes. He started smoking about 47 years ago. He smoked an average of [...] mouth in the morning., Disp: , Rfl: atorvastatin (Lipitor) 80 mg tablet, Take 1 tablet (80 mg) by mouth at bedtime., Disp: 30 tablet, Rfl: 11 clopidogrel (Plavix) 75 mg tablet, Take 1 tablet (75 mg) by mouth in the morning., Disp: 30 tablet, Rfl: 11 empagliflozin (Jardiance) 10 mg, Take 1 tablet (10 mg) by mouth once daily as directed., Disp: 90 each, Rfl: 3 esomeprazole (NexIUM) [address] capsule, Take 1 capsule (40 mg) by mouth before breakfast. Do not open capsule., Disp: 30 capsule, Rfl: 11 famotidine (Pepcid) 20 mg tablet, Take 20 mg by mouth in the morning and at bedtime., Disp: , Rfl: isosorbide mononitrate ER (Imdur) 60 mg 24 hr tablet, Take 1 tablet (60 mg) by mouth in the morning. Do not crush or chew., Disp: 90 tablet, Rfl: 3 lisinopril 5 mg tablet, Take 1 tablet (5 mg) by mouth in the morning., Disp: 30 tablet, Rfl: 11 magnesium oxide (Mag-Ox) 400 mg tablet, 400 mg in the morning. Take 3 tablets, Disp: , Rfl: methocarbamol (Robaxin) 500 mg tablet, Take 1 tablet (500 mg) by mouth if needed in the morning, at noon, and at bedtime for muscle spasms for up to 5 days. (Patient not taking: Reported on 02/09/2023), Disp: 15 tablet, Rfl: 0 metoprolol succinate XL (Toprol-XL) 200 mg 24 hr tablet, Take 1 tablet (200 mg) by mouth once daily as directed. Do not crush or chew., Disp: 30 tablet, Rfl: 11 mycophenolate (Myfortic) 180 mg EC tablet, Take 3 tablets (540 mg) by mouth in the morning and at bedtime., Disp: 540 tablet, Rfl: 3 nitroglycerin (Nitrostat) 0.4 mg SL tablet, Place 0.4 mg under the tongue every 5 (five) minutes if needed for chest pain., Disp: , Rfl: predniSONE (Deltasone) 5 mg tablet, Take 5 mg by mouth in the morning., Disp: , Rfl: ranolazine (Ranexa) 500 mg 12 hr tablet, Take 1 tablet (500 mg) by mouth in the morning and at bedtime. Do not crush, chew, or split., Disp: 60 tablet, Rfl: 11 tacrolimus (Prograf) 0.5 mg capsule, Take 1 capsule (0.5 mg) by mouth in the morning. TDD 1.5mg (Patient taking differently: Take 0.5 mg by mouth once daily in the evening. TDD 1.5mg), Disp: 30 capsule, Rfl: 11 tacrolimus (Prograf) 1 mg capsule, TDD 1.5mg (Patient taking differently: Take 1 mg by mouth in the morning. TDD 1.5mg), Disp: 30 capsule, Rfl: 11 Last Recorded Vitals BP 126/80 (BP Location: Right arm, Patient Position: Sitting) Pulse 71 Ht 1.778 m (5' 10 ) Wt 90.7 kg (200 lb) SpO2 97% BMI 28.70 kg/m??? Physica (more content not included)... [facility] 05-18-2023 Note 05/18/23 I called the pt [...] Pt verbalized understanding of the dose change. [facility] 05-18-2023 Note 05/18/23 DD Renal transplant on (08/15/2017) by Dr. Marquez. CMV +/-. History of PKD. Patient has recent history of an PR and had Pacer/Defib Placed. Vishal Duke is a 62 y.o. male who End-stage renal disease secondary to Polycystic Kidneys who underwent donor kidney transplant on 08/15/2017 (Kidney). Pt is s/p bilateral nephrectomy by Dr Maldonado on 01/24/23 HPI: Patient is a 62 [...] Review Audit Reviewed by Cierra Danielson MA (Regional Liaison) on 05/18/23 at 1014 Medication Order Taking? Sig Documenting Provider Last Dose Status albuterol (ProAir HFA) 90 mcg/actuation inhaler [id number] Yes Inhale 2 puffs every 4 (four) hours if needed for wheezing or shortness of breath. Laney Busch MD Taking Active aspirin 81 mg EC tablet [id number] Yes Take 81 mg by mouth in the morning. Makayla Gates MD Taking Active atorvastatin (Lipitor) 80 mg tablet [id number] Yes Take 1 tablet (80 mg) by mouth at bedtime. Federico Chester MD Taking Active clopidogrel (Plavix) 75 mg tablet [id number] Yes Take 1 tablet (75 mg) by mouth in the morning. Federico Chester MD Taking Active empagliflozin (Jardiance) 10 mg [id number] Yes Take 1 tablet (10 mg) by mouth once daily as directed. Federico Chester MD Taking Active esomeprazole (NexIUM) [address] capsule [id number] Yes Take 1 capsule (40 mg) by mouth before breakfast. Do not open capsule. Federico Chester MD Taking Active famotidine (Pepcid) 20 mg tablet [id number] No Take 20 mg by mouth in the morning and at bedtime. Makayla Gates MD Not Taking Flag for Review isosorbide mononitrate ER (Imdur) 60 mg 24 hr tablet [id number] Yes Take 1 tablet (60 mg) by mouth in the morning. Do not crush or chew. Federico Chester MD Taking Active lisinopril 5 mg tablet [id number] Yes Take 1 tablet (5 mg) by mouth in the morning. Federico Chester MD Taking Active magnesium oxide (Mag-Ox) 400 mg tablet [id number] Yes 400 mg in the morning. Take 3 tablets Historical ProviderMD Taking Differently Active methocarbamol (Robaxin) 500 mg tablet [id number] Take 1 tablet (500 mg) by mouth if needed in the morning, at noon, and at bedtime for muscle spasms for up to 5 days. Patient not taking: Reported on 02/09/2023 Amelia Olson MD 01/30/23 2359 metoprolol succinate XL (Toprol-XL) 200 mg 24 hr tablet [id number] Yes Take 1 tablet (200 mg) by mouth once daily as directed. Do not crush or chew. Fedreico Chester MD Taking Active mycophenolate (Myfortic) 180 mg EC tablet [id number] Yes Take 3 tablets (540 mg) by mouth in the morning and at bedtime. Petey Redding NP Taking Active nitroglycerin (Nitrostat) 0.4 mg SL tablet [id number] Yes Place 0.4 mg under the tongue every 5 (five) minutes if needed for chest pain. Historical Provider, Taking Active predniSONE (Deltasone) 5 mg tablet [id number] Yes Take 5 mg by mouth in the morning. Historical Provider, Taking Differently Active ranolazine (Ranexa) 500 mg 12 hr tablet [id number] Yes Take 1 tablet (500 mg) by mouth in the morning and at bedtime. Do not crush, chew, or split. Federico Chester MD Taking Active tacrolimus (Prograf) 0.5 mg capsule [id number] Yes Take 1 capsule (0.5 mg) by mouth in the morning. TDD 1.5mg Patient taking differently: Take 0.5 mg by mouth once daily in the evening. TDD (more content not included)... [facility] 03-29-2023 Note Patient's tac level of 9.[address] Basurto and he just wants to watch it no medication change. Maria G Mayberry, TATO [facility] 03-28-2023 Note 03/28/23 Chief Complaint Patient presents with Kidney Follow-up Patient have no concerns PCP: Rosa M Gonzales MD Txp Referring: Preferred Pharmacy: [id number] - [place], [place] - [address] [place] [address] Subjective Visit Vitals BP 111/61 Pulse 60 Wt 90.3 kg (199 lb) BMI 27.75 kg/m??? Smoking Status Former BSA 2.13 m??? No Known Allergies Medication Documentation Review Audit Reviewed by Tim Foy MA (Regional Liaison) on 12/12/23 at 0912 Medication Order Taking? Sig Documenting Provider Last Dose Status albuterol (ProAir HFA) 90 mcg/actuation inhaler [id number] Yes Inhale 2 puffs every 4 (four) hours if needed for wheezing or shortness of breath. Laney Busch MD Taking Active aspirin 81 mg EC tablet [id number] Yes Take 81 mg by mouth in the morning. Historical Provider, Taking Active atorvastatin (Lipitor) 80 mg tablet [id number] Yes Take 1 tablet (80 mg) by mouth at bedtime. Federico Chester MD Taking Active clopidogrel (Plavix) 75 mg tablet [id number] Yes Take 1 tablet (75 mg) by mouth in the morning. Federico Chester MD Taking Active empagliflozin (Jardiance) 10 mg [id number] Yes Take 1 tablet (10 mg) by mouth once daily as directed. Federico Chester MD Taking Active esomeprazole (NexIUM) [address] capsule [id number] Yes Take 1 capsule (40 mg) by mouth before breakfast. Do not open capsule. Federico Chester MD Taking Active famotidine (Pepcid) 20 mg tablet [id number] Yes Take 20 mg by mouth in the morning and at bedtime. Historical Provider, Taking Active isosorbide mononitrate ER (Imdur) 60 mg 24 hr tablet [id number] Yes Take 1 tablet (60 mg) by mouth in the morning. Do not crush or chew. Federico Chester MD Taking Active lisinopril 5 mg tablet [id number] Yes Take 1 tablet (5 mg) by mouth in the morning. Federico Chester MD Taking Active magnesium oxide (Mag-Ox) 400 mg tablet [id number] Yes 400 mg in the morning. Historical ProviderMD Taking Active methocarbamol (Robaxin) 500 mg tablet [id number] Take 1 tablet (500 mg) by mouth if needed in the morning, at noon, and at bedtime for muscle spasms for up to 5 days. Patient not taking: Reported on 02/09/2023 Amelia Olson MD 01/30/23 0362 metoprolol succinate XL (Toprol-XL) 200 mg 24 hr tablet Yes Take 1 tablet (200 mg) by mouth once daily as directed. Do not crush or chew. Federico Chester MD Taking Active mycophenolate (Myfortic) 180 mg EC tablet [id number] Yes Take 3 tablets (540 mg) by mouth in the morning and at bedtime. Bobby Maldonado MD Taking Active nitroglycerin (Nitrostat) 0.4 mg SL tablet [id number] Yes Place 0.4 mg under the tongue every 5 (five) minutes if needed for chest pain. Historical Provider, Taking Active predniSONE (Deltasone) 5 mg tablet [id number] Yes Take 5 mg by mouth every other day. Historical Provider, Taking Active ranolazine (Ranexa) 500 mg 12 hr tablet [id number] Yes Take 1 tablet (500 mg) by mouth in the morning and at bedtime. Do not crush, chew, or split. Federico Chester MD Taking Active tacrolimus (Prograf) 0.5 mg capsule [id number] Yes tacrolimus 0.5 mg capsule, immediate-release TAKE 1 CAPSULE BY MOUTH TWICE DAILY Phoebe Culver MD Taking Active Immunization History Administered Date(s) Administered Unspecified Sars-Cov-2 Vaccination 12/30/2021 Patient Active Problem List Diagnosis Aftercare following organ transplant Kidney replaced by transplant Electrolyte abnormality Immunosuppression ([facility]) Polycystic kidney disease, autosomal dominant Elevated hemoglobin ([facility]) Other abnormality of red blood cells Post-COVID chronic dyspnea Chronic systolic congestive heart failure ([facility]) Active rickets Acute bronchitis Acute non-ST elevation myocardial infarction (NSTEMI) ([facility]) Age-related nuclear cataract of left eye 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 Coronary artery disease involving iqugmiut coronary artery of iqugmiut heart with unstable angina pectoris ([facility]) Gastroesophageal reflux disease Hypertension End-stage renal disease ([facility]) Coronary atherosclerosis Hyperkalemia History of kidney disease Gouty arthropathy Hypervitaminosis A Increased infection risk status post immunosuppressive therapy Lower urinary tract symptoms due to benign prostatic hyperplasia Male hypogonadism Hyperlipidemia Microscopic hematuria Mixed hyperlipidemia Myocardial infarction ([facility]) Neuropathy Nocturia Renal failure Pyelonephritis Pseudophakia PCO (posterior capsular opacification), right Stage 4 chronic kidney disease (CMS/HCC) Stage 3 chronic kidney disease ([facility]) Upper respiratory infection Status post insertion of drug-eluting stent into left anterior descending (LAD) artery for coronary artery disease Ventricular tachycardia ([facility] (more content not included)... [facility] 03-08-2023 Note New standing lab ord er placed in intraoffice mail today to go out> [facility] 03-08-2023 Note New standing lab ord er placed in today's outgoing mail. Following call from clinic [facility] Amisha that pt is @ [facility] for lab draws, faxed to [phone] new order and requested Bethany fax all lab results to [facility] transplant as last monthly lab results were received November 2022. Pt notified order sent & mailed and to contact [facility] monthly when labs are completed to confirm receipt or have testing @ [facility]. He acknowledged. Encouraged to FU next week with [facility] transplant. [facility] 03-01-2023 Note Patient called stati umesh his repeat tac level still 3.6 in his My Chart, we do not have results yet.. Patient will increase by 0.5 mg in the morning, now on 1 mg in am and 0.5 mg in afternoon of prograf. He will repeat level in one week. [facility] 02-21-2023 Note Per franchesca at Dr serrano an office, incisional culture came back positive pseudomonis, suseptable to Cipro 500 mg BID x [address] Maldonado notified. [facility] 02-17-2023 Note Patient called to re port that he finished antibiotic for incision infection and was told looking better and they did take sample to send for culture. [facility] 02-09-2023 Note Patient states he wi ll repeat his tac level as not a true 12 hour trough, he did not take yesterday yoselin dose. [facility] 02-09-2023 Note 02/08/23 DD Renal transplant on (08/15/2017) by Dr. Marquez. CMV +/-. Patient has recent history of an PR and had Pacer/Defib Placed. Patient here for follow up Nephrectomy Patient states he is feeling good with a 21 pound weight loss since bilat iqugmiut kidney's removed. He states that he currently [...] Status albuterol (ProAir HFA) 90 mcg/actuation inhaler [id number] Yes Inhale 2 puffs every 4 (four) hours if needed for wheezing or shortness of breath. Laney Busch MD 01/24/2023529 Active aspirin 81 mg EC tablet [id number] Yes Take 81 mg by mouth in the morning. Makayla Gates MD 01/24/2023529 Active atorvastatin (Lipitor) 80 mg tablet [id number] Yes Take 1 tablet (80 mg) by mouth at bedtime. Federico Chester MD 01/23/2023 2100 Active clopidogrel (Plavix) 75 mg tablet [id number] Yes Take 1 tablet (75 mg) by mouth in the morning. Federico Chester MD Past Week Active empagliflozin (Jardiance) 10 mg [id number] Yes Take 1 tablet (10 mg) by mouth once daily as directed. Federico Chester MD 01/23/2023 08 Active esomeprazole (NexIUM) [address] capsule [id number] Yes Take 1 capsule (40 mg) by mouth before breakfast. Do not open capsule. Federico Chester MD 01/24/2023529 Active famotidine (Pepcid) 20 mg tablet [id number] Yes Take 20 mg by mouth in the morning and at bedtime. Makayla ProviderMD Past Month 529 Active isosorbide mononitrate ER (Imdur) 60 mg 24 hr tablet [id number] Yes Take 1 tablet (60 mg) by mouth in the morning. Do not crush or chew. Federico Chester MD 01/24/2023529 Active lisinopril 5 mg tablet [id number] Yes Take 1 tablet (5 mg) by mouth in the morning. Federico Chester MD 01/24/2023 08 Active magnesium oxide (Mag-Ox) 400 mg tablet [id number] Yes 400 mg in the morning. Makayla ProviderMD 01/24/2023529 Active metoprolol succinate XL (Toprol-XL) 200 mg 24 hr tablet [id number] Yes Take 1 tablet (200 mg) by mouth once daily as directed. Do not crush or chew. Federico Chester MD 01/24/2023529 Active mycophenolate (Myfortic) 180 mg EC tablet [id number] Yes Take 3 tablets (540 mg) by mouth in the morning and at bedtime. Bobby Maldonado MD 01/24/2023529 Active nitroglycerin (Nitrostat) 0.4 mg SL tablet [id number] Yes Place 0.4 mg under the tongue every 5 (five) minutes if needed for chest pain. Historical Provider, Past Month Active predniSONE (Deltasone) 5 mg tablet [id number] Yes Take 5 mg by mouth every other day. Historical ProviderMD 01/24/2023529 Active ranolazine (Ranexa) 500 mg 12 hr tablet [id number] Yes Take 1 tablet (500 mg) by mouth in the morning and at bedtime. Do not crush, chew, or split. Federico Chester MD 01/24/2023529 Active tacrolimus (Prograf) 0.5 mg capsule [id number] Yes tacrolimus 0.5 mg capsule, immediate-release TAKE 1 CAPSULE BY MOUTH TWICE DAILY Phoebe Culver MD 01/24/2023529 Active Immunization History Administered Date(s) Administered Unspecified Sars-Cov-2 Vaccination 12/30/2021 Patient Active Problem List Diagnosis Aftercare following organ transplant Kidney replaced by transplant Electrolyte abnormality Immunosuppression ([facility]) Polycystic kidney disease, autosomal dominant Elevated hemoglobin ([facility]) Other abnormality of red blood cells Post-COVID chronic dyspnea Chronic systolic congestive heart failure ([facility]) Active rickets Acute bronchitis Acute non-ST elevation myocardial infarction (NSTEMI) ([facility]) Age-related nuclear cataract of left eye 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 Coronary artery disease involving iqugmiut coronary artery of iqugmiut heart with unstable angina pectoris (CMS/HCC) Gastroesophageal [...] artery for cor (more content not included)... [facility] 01-25-2023 Note 01/25/23 1022 Admission Assessment [...] Discharge? Yes Does the patient have a pillowcase sewer assigned to them through their insurance? No [...] activate MyChart? Yes Home once medically ready [facility] 01-25-2023 Note Attestation signed by Bobby Maldonado [...] be an additional personal documentation from me. [facility] Department of Urology DAILY PROGRESS NOTE [...] 100 mL/hr, Last Rate: 100 mL/hr (01/25/23 0438) Imaging: CT abdomen pelvis wo IV contrast [...] appear stable. The adrenal glands appear stable. [place] kidneys are diffusely replaced by cystic change. [...] is unchanged. Impress (more content not included)... [facility] 01-25-2023 Note Patient: Vishal Schuster lenardalvin Procedure Summary Date: 01/24/23 Room / Location: [facility] OPERATING ROOM 13 / [facility] Operating Room Anesthesia Start: 0756 Anesthesia Stop: 1737 Procedure: NEPHRECTOMY, ROBOT-ASSISTED (Bilateral: Abdomen) Diagnosis: PKD (polycystic kidney disease) (PKD (polycystic kidney disease) [Q61.3]) Surgeons: Bobby Maldonado MD Responsible Provider: Shaan Dawson MD Anesthesia Type: general ASA Status: 4 Anesthesia Type: general Vitals Value Taken Time BP 118/81 01/24/232023 Temp 36.1 ???C (97 ???F) 01/24/23 172 Pulse 87 01/24/232036 Resp 24 01/24/232036 SpO2 93 % 01/24/232036 Vitals shown include unvalidated device data. Anesthesia Post Evaluation Patient location during evaluation: PACU Level of consciousness: awake Pain management: adequate Airway patency: patent Cardiovascular status: acceptable Respiratory status: acceptable Hydration status: acceptable Patient is hemodynamically stable and is able to be discharged from PACU per anesthesia protocol. No notable events documented. [facility] 01-24-2023 Note Patient: Vishal Schuster lenardalvin Procedure Summary Date: 01/24/23 Room / Location: [facility] OPERATING ROOM 13 / [facility] Operating Room Anesthesia Start: 0756 Anesthesia [...] and follow verbal commands throughout transport process [facility] 01-24-2023 Note Airway Date/Time: 01/24/2023 8:14 AM Urgency: elective Airway not difficult General Information and Staff Patient location during procedure: OR Resident/SERVICE BAR CASHIER/CAA: Nicola Roblero MD Performed: resident/SERVICE BAR CASHIER/TEE Learner assisted: ASHLI Rowland Indications and Patient [...] 22 Number of attempts at approach: 1 [facility] 01-24-2023 Note Arterial Line: Date/Time: 01/24/2023 [...] complications. Additional notes: Under GA Staffing Performed: resident/SERVICE BAR CASHIER/CAA Resident/SERVICE BAR CASHIER: Nicola Roblero MD Performed by: Nicola Roblero MD Authorized by: Shaan Dawson MD [facility] 01-24-2023 Note Patient: Vishal felix Procedure Information Date/Time: 01/24/23729 Procedure: NEPHRECTOMY, ROBOT-ASSISTED possible bilateral (Right) Location: [facility] OPERATING ROOM 13 / [facility] Operating Room Surgeons: Bobby Maldonado MD Relevant [...] failure (CMS/HCC) (+) Coronary artery disease involving iqugmiut coronary artery of iqugmiut heart with unstable angina pectoris (CMS/HCC) (+) [...] Plan discussed with attending. Additional Equipment Requests [facility] 01-12-[address] Maldonado , now need to do phlebotomy for recent of hematocrit 50.8 and HGB of 16.4. Dr Maldonado waits until hematocrit is 55 and hgb closer to 17. Patient will be having nephrectomy 01/24/23 and will repeat labs then. [facility] 12-22-2022 Note 12/22/22 PCP: Rosa M Gonzales MD Txp Referring: Preferred Pharmacy: [id number] - [place], [place] - [address] [facility] [address] [facility] [address] Subjective Visit Vitals BP 136/77 Pulse 60 Wt 95.6 kg (210 lb 11.2 oz) BMI 30.23 kg/m??? Smoking Status Former BSA 2.17 m??? No Known Allergies Medication Documentation Review Audit Reviewed by Tim Foy MA (Regional Liaison) on 12/22/22 at 0857 Medication Order Taking? Sig Documenting Provider Last Dose Status albuterol (ProAir HFA) 90 mcg/actuation inhaler [id number] Yes Inhale 2 puffs every 4 (four) hours if needed for wheezing or shortness of breath. Laney Busch MD Taking Active aspirin 81 mg EC tablet [id number] Yes Take 81 mg by mouth in the morning. Historical ProviderMD Taking Active atorvastatin (Lipitor) 80 mg tablet [id number] Yes Take 1 tablet (80 mg) by mouth at bedtime. Federico Chester MD Taking Active clopidogrel (Plavix) 75 mg tablet [id number] Yes Take 1 tablet (75 mg) by mouth in the morning. Federico Chester MD Taking Active empagliflozin (Jardiance) 10 mg [id number] Yes Take 1 tablet (10 mg) by mouth once daily as directed. Federico Chester MD Taking Active esomeprazole (NexIUM) [address] capsule Yes Take 1 capsule (40 mg) by mouth before breakfast. Do not open capsule. Federico Chester MD Taking Active famotidine (Pepcid) 20 mg tablet Yes Take 20 mg by mouth in the morning and at bedtime. Historical ProviderMD Taking Active isosorbide mononitrate ER (Imdur) 30 mg 24 hr tablet Yes Take 1 tablet (30 mg) by mouth once daily as directed. Do not crush or chew. Federico Chester MD Taking Active isosorbide mononitrate ER (Imdur) 60 mg 24 hr tablet Yes Take 1 tablet (60 mg) by mouth in the morning. Do not crush or chew. Federico Chester MD Taking Active lisinopril 5 mg tablet [id number] Yes Take 1 tablet (5 mg) by mouth in the morning. Federico Chester MD Taking Active magnesium oxide (Mag-Ox) 400 mg tablet [id number] Yes 400 mg in the morning. Historical ProviderMD Taking Active metoprolol succinate XL (Toprol-XL) 200 mg 24 hr tablet Yes Take 1 tablet (200 mg) by mouth once daily as directed. Do not crush or chew. Federico Chester MD Taking Active mycophenolate (Myfortic) 180 mg EC tablet [id number] Yes Take 540 mg by mouth in the morning and at bedtime. Historical Provider, Taking Active nitroglycerin (Nitrostat) 0.4 mg SL tablet [id number] Yes Place 0.4 mg under the tongue every 5 (five) minutes if needed for chest pain. Historical Provider, Taking Active predniSONE (Deltasone) 5 mg tablet [id number] Yes Take 5 mg by mouth every other day. Historical Provider, Taking Active ranolazine (Ranexa) 500 mg 12 hr tablet [id number] Yes Take 1 tablet (500 mg) by mouth in the morning and at bedtime. Do not crush, chew, or split. Federico Chester MD Taking Active tacrolimus (Prograf) 0.5 mg capsule [id number] Yes tacrolimus 0.5 mg capsule, immediate-release TAKE 1 CAPSULE BY MOUTH TWICE DAILY Historical Provider, Taking Active There is no immunization history [...] bronchitis Acute non-ST elevation myocardial infarction (NSTEMI) (CMS/HCC) Age-related nuclear cataract of left eye 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 Coronary artery disease involving iqugmiut coronary artery of iqugmiut heart with unstable angina pectoris (CMS/HCC) Gastroesophageal [...] of Onset A (more content not included)... [facility] 12-05-2022 Note [facility] Cardiology Clinic Note Chief Complaint: Patient here for 6 mo follow up CAD, CKD, ischemic congestive cardiomyopathy, and hypertension. Had echo in August 2022 at [facility]. Device was checked last month. HPI: [...] urologist wishes to remove one of his iqugmiut kidneys as it is pressing up on the stomach and into the chest. Update 12/05/2022: Doing about the same His urologist has decided against removal of his iqugmiut kidney until it causes significant symptoms Mr. [...] Rfl: predniSONE (Deltas (more content not included)... [facility] 10-24-2022 Note Attestation signed by Shaun [...] Age: 61 y.o. : 1960 Account No.: [id number] Chief complaint: Follow up visit. Last visit [...] mg EC tablet in the morning. Historical Provider, atorvastatin (Lipitor) [...] 1 TABLET BY MOUTH EVERY DAY Historical Provider, isosorbide mononitrate ER (Imdur) 30 [...] Do not crush or chew. Historical Provider, metoprolol succinate XL (Toprol-XL) 200 [...] for chest p (more content not included)... [facility] 09-27-2022 Note 09/27/22 Chief Complaint Patient presents with Kidney Follow-up No major concerns today PCP: Rosa M Gonzales MD Txp Referring: Preferred Pharmacy: [facility] - [place], [place] - [address] [facility] [address] [place] [address] Subjective Visit Vitals BP 121/76 (BP Location: Right arm, Patient Position: Sitting, BP Cuff Size: Adult) Pulse 60 Temp 36.5 ???C (97.7 ???F) (Oral) Wt 96 kg (211 lb 11.2 oz) BMI 30.38 kg/m??? Smoking Status Former BSA 2.18 m??? No Known Allergies Medication Documentation Review Audit Reviewed by Derek Mccoy (Regional Liaison) on 09/27/22 at 0859 Medication Order Taking? Sig Documenting Provider Last Dose Status aspirin 81 mg EC tablet [id number] No Take 81 mg by mouth in the morning. Makayla Gates MD Not Taking Active aspirin 81 mg EC tablet [id number] Yes in the morning. Makayla Gates MD Taking Active atorvastatin (Lipitor) 80 mg tablet [id number] Yes Take 80 mg by mouth at bedtime. Makayla Gates MD Taking Active clopidogrel (Plavix) 75 mg tablet [id number] Yes Take 75 mg by mouth in the morning. Makayla Gates MD Taking Active dapagliflozin (Farxiga) 10 mg [id number] Farxiga 10 mg tablet TAKE 1 TABLET BY MOUTH EVERY DAY Federico Chester MD Active empagliflozin (Jardiance) 10 mg [id number] Yes Take 1 tablet (10 mg) by mouth in the morning. Federico Chester MD Taking Active esomeprazole (NexIUM) [address] capsule [id number] Yes Take 40 mg by mouth before breakfast. Do not open capsule. Makayla Gates MD Taking Active famotidine (Pepcid) 20 mg tablet [id number] Yes Take 20 mg by mouth in the morning and at bedtime. Makayla Gates MD Taking Active famotidine (Pepcid) 20 mg tablet [id number] No in the morning. Makayla Gates MD Not Taking Active Discontinued 09/21/22 1548 isosorbide mononitrate ER (Imdur) 30 mg 24 hr tablet [id number] Yes isosorbide mononitrate ER 30 mg tablet,extended release 24 hr TAKE 1 TABLET BY MOUTH EVERY DAY Makayla Gates MD Taking Active isosorbide mononitrate ER (Imdur) 30 mg 24 hr tablet [id number] No Take 1 tablet (30 mg) by mouth once daily as directed. Do not crush or chew. Patient not taking: Reported on 09/27/2022 Federico Chester MD Not Taking Active lisinopril 5 mg tablet [id number] No Take 5 mg by mouth in the morning. Makayla Gates MD Not Taking Active lisinopril 5 mg tablet [id number] Yes lisinopril 5 mg tablet TAKE 1 TABLET BY MOUTH ONCE DAILY Makayla Gates MD Taking Active magnesium oxide (Mag-Ox) 400 mg tablet [id number] Yes 400 mg in the morning. Makayla Gates MD Taking Active metoprolol succinate XL (Toprol-XL) 200 mg 24 hr tablet [id number] Yes Take 200 mg by mouth in the morning. Do not crush or chew. Makayla Gates MD Taking Active metoprolol succinate XL (Toprol-XL) 200 mg 24 hr tablet [id number] No metoprolol succinate ER 200 mg tablet,extended release 24 hr TAKE 1 TABLET BY MOUTH DAILY Makayla Gates MD Not Taking Active metoprolol tartrate (Lopressor) 100 mg tablet [id number] No 1 (one) time each day at the same time. Makayla Gates MD Not Taking Active metoprolol tartrate (Lopressor) 50 mg tablet [id number] No Take by mouth. Makayla Gates MD Not Taking Active mycophenolate (Myfortic) 180 mg EC tablet [id number] Yes Take 540 mg by mouth in the morning and at bedtime. Makayla Gates MD Taking Active nitroglycerin (Nitrostat) 0.4 mg SL tablet [id number] Yes Place 0.4 mg under the tongue every 5 (five) minutes if needed for chest pain. Makayla Gates MD Taking Active predniSONE (Deltasone) 5 mg tablet [id number] Yes Take 5 mg by mouth every other day. Makayla Gates MD Taking Differently Active predniSONE (Deltasone) 5 mg tablet [id number] No Take 5 mg by mouth. Makayla Gates MD Not Taking Active Discontinued 09/21/22 1552 ranolazine (Ranexa) 500 mg 12 hr tablet [id number] Yes Take 1 tablet (500 mg) by mouth in the morning and at bedtime. Do not crush, chew, or split. Federico Chester MD Taking Active tacrolimus (Prograf) 0.5 mg capsule [id number] Yes tacrolimus 0.5 mg capsule, immediate-release TAKE 1 CAPSULE BY MOUTH TWICE DAILY Historical Provider, Taking Active tacrolimus (Prograf) 1 mg capsule [id number] Yes Take 0.5 mg by mouth in the morning and at bedtime. Patient takes 1 mg in the am, 0.5 mg in the pm Historical Provider, Taking Active Immunization History Administered Date(s) Administered Moderna SARS-CoV-2 Vaccination 06/12/2020, 07/10/2020 Patient Active Problem List Diagnosis Aftercare following organ transplant Kidney replaced by transplant Electrolyte abnormality Immunosuppression (CMS/HCC) Polycystic kidney disease, autosomal dominant Elevated hemoglobin (CMS/HCC) Other abnormality of red blood cells Family History Problem Relation Name Age of Onset Alzheimer's disease Mother Coronary artery disease F (more content not included)... [facility]. His DLCO was [...] predicted. Just wanted to report the difference. [facility] 08-18-2022 Note Reviewed 08/18/22 Hgb 17 and Hematocrit 52.7 by phone with Sb FRANK and per his phone order, phlebotomy x 1 unit PRBC and schedule RV with Petey Gonzalez SOFTWARE APPLICATIONS SPECIALIST to change ARB to ANNE during RV. Pt notified to stay well hydrated and requested phlebotomy @ [facility] and pt given RV appointment 09/27/22 and verbalizes understanding for RV. Notified Bop (Liza) of new order- scheduled @2pm tomorrow and pt agrees. Other labs pending receipt from [place] today. [facility] 07-29-2022 Note Attestation signed by Georgie [...] Physician, Pulmonary, Critical Care and Sleep Medicine [facility] 08/02/22 Pulmonary Clinic Visit Note Patient: Vishal Duke Age: 61 y.o. 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 Historical ProviderMD atorvastatin (Lipitor) [...] the morning and at bedtime. Historical ProviderMD isosorbide mononitrate ER (Imdur) 30 [...] drugs. Family History (more content not included)... [facility] 07-05-2022 Note ja [facility] 06-16-2022 Note Subjective Patient ID: Vishal Duke [...] +/-. Patient has recent history of an PR and had Pacer/Defib Placed. Clinic visit for follow up transplant Current IS: tacrolimus 0.5 mg twice (more content not included)... [facility] 06-16-2022 Note 06/16/[address] Maldonado Nurse note history of renal transplant - DD Renal transplant on (08/15/2017) by Dr. Marquez. CMV +/-. Patient has recent history of an PR and had Pacer/Defib Placed. Clinic visit for [...] as ordered - Follow up: 6 months [facility] 05-30-2022 Note CARDIAC STRESS TEST Requesting [...] and relayed in a separate dictation. [facility] 01-17-2022 Hospital Discharge instructions Patient Education 01/17/2022 [...] urethra. Follow these instructions at home: Take [id number] and prescription medicines only as told by [...] 04/03/2006 Document Revised: 02/26/2019 Document Reviewed: 05/08/2017 [employer] Patient Education [facility] Follow Up Care 11/09/2021 10:07:55 With:LEONARDA FRANK, Reji Farrell, URL Address: [facility] [address], [place] [address] [phone] When:01/18/2024 Comments:PSA [facility] 01-17-2022 Evaluation + Plan note Diagnostic Tests PendingPSA Total 01/17/22 [facility] 06-01-2021 Note PROCEDURE: Polyplus-transfection VCT 64, 5.0 mm slice axial images [...] signed by Anjum Remy on 06/01/2021 [address] [facility] [employer] 12-05-2020 Note MR#: [id number] I [facility] Pt. Name: Vishal Duke Admitted: 12/02/2020 [...] P/Yonas Herrera MD Date Trans: 12/05/2020 05:37 A/mmo [id number] cc: Rosa M Gonzales M.D. [facility] [place] [address] [facility] 12-02-2020 Note MR#: [id number] [facility] Pt. Name: Vishal Duke Date of Service: 12/02/2020 Room #: 4CD [id number] Birthdate: 1960 Referring Physician: CONSULTATION Reason for [...] disease, gout, GERD, hypertension, CAD status post PR and 2 stents, HLD, Covid pneumonia Past [...] Watkins, DO Date Trans: 12/02/2020 05:52 P/ [id number] cc: Rosa M Gonzales M.D. [address] [facility] [address] [facility] 08-20-2020 Note MR#: [id number] I [facility] Pt. Name: Vishal Duke Admitted: 08/02/2020 [...] x2 in June. The patient's son and [id number] were symptomatic just before him. The patient was complaining of fatigue and mild body aches. The patient also developed cough and mild shortness of breath. His dyspnea was initially with exertion, but progressed to minimal activity. After he spoke with his farm equipment maintenance supervisor, he decreased his Myfortic dose and received [...] Ferreira M.D. Date Trans: 08/20/2020 05:24 A/patrizia [id number] cc: Rosa M Gonzales M.D. [address] [place] [address] [facility] [address] [facility] History of Present illness Narrative Patient [...] he saw his regular Gunn by his medart operator to agreed with and endorsed the care we rendered. The device was interrogated it in their office and it appears to be functioning appropriately. Because of all the above he is pleased with his care. He'll be following up henceforth with the [facility] medart operator and we advised him were always happy to participate in his care if he needs help. I believe his ICD will be interrogated and managed through their office. We also note that his renal transplant was not injured as a result of the hospitalization and contrast administration and/or antibiotic therapy because of this he is pleased. [facility] 250 DO Work Phone: Hospital course Narrative No data available for this section [facility] Progress note No data available for this section [facility] Chief Complaint VISHAL DUKE is being seen for follow-up of a hospitalization for [facility] D/C 12/11/2020 ICD insert. Family History No [...] section and content) DATE CREATED AUTHOR 04/25/2021 [employer] DATE CREATED AUTHOR AUTHOR'S ORGANIZ ATION 05/10/2021 [facility] DATE CREATED AUTHOR AUTHOR'S ORGANIZ ATION 07/18/2021 [facility] DATE CREATED AUTHOR AUTHOR'S ORGANIZ ATION 01/17/2022 [facility] dical Specialist DATE CREATED AUTHOR AUTHOR'S ORGANIZ ATION 08/25/2022 [facility] DATE CREATED AUTHOR AUTHOR'S ORGANIZ ATION 05/01/2023 [facility] dical Specialists EPIC DATE CREATED AUTHOR AUTHOR'S ORGANIZ ATION 06/05/2023 [facility] DATE CREATED AUTHOR AUTHOR'S ORGANIZ ATION 06/13/2023 Roger Murry [facility] Care Team (unrecognized sect ion and content) Residential Treatment Staff Relationship Specialty Start Date End Date Rosa M Gonzales MD [address] [place] [address] PCP - ACO Reach 09/08/22 Rosa M Gonzales MD [address] [place] [address] PCP - General Family Medicine 10/25/22 Rosa M Platt, RN Registered Nurse Family Medicine 03/01/23 FOR RECORDS PERTAINING TO PATIENTS WHO ARE [...] BE BASED ON THE PRIMARY CLINICAL RECORDS. [facility]. provides no warranty or guarantee of the accuracy or completeness of information in this document.
[2023-06-26 10:19] LABS: Basophils Absolute Auto 0.1 10^3/uL (0.0-0.1); Basophils Percent Auto 0.7 % (0.2-2.0); Eosinophils Absolute Auto 0.1 10^3/uL (0.0-0.7); Eosinophils Percent Auto 1.4 % (0.9-7.0); Hematocrit 48.9 % (42.0-54.0); Hemoglobin 15.4 g/dL (14.0-18.0); Immature Granulocytes Abs Auto 0.05 10^3/uL (0.00-0.03); Immature Granulocytes Pct Auto 0.7 % (0.0-0.5); Lymphocytes Absolute Auto 1.1 10^3/uL (1.2-3.8); Lymphocytes Percent Auto 14.9 % (20.5-60.0); Mean Corpuscular HGB Conc 31.5 g/dL (29.9-35.2); Mean Corpuscular Hemoglobin 29.4 pg (25.9-34.0); Mean Corpuscular Volume 93.3 fL (80.0-94.0); Mean Platelet Volume 10.1 fL (9.5-13.5); Monocytes Absolute Auto 0.7 10^3/uL (0.3-0.8); Monocytes Percent Auto 9.6 % (1.7-12.0); Neutrophils Absolute Auto 5.2 10^3/uL (1.4-6.5); Neutrophils Percent Auto 72.7 % (43.0-75.0); Platelet Count 237 10^3/uL (150-450); Red Blood Count 5.24 10^6/uL (4.70-6.10); Red Cell Distribution Width 14.6 % (11.0-15.0); White Blood Count 7.1 10^3/uL (4.0-11.0)
[2023-06-26 10:47] LABS: Alanine Aminotransferase 33 U/L (16-63); Albumin Globulin Ratio 1.2; Albumin Level 3.7 g/dL (3.4-5.0); Alkaline Phosphatase 79 U/L (46-116); Anion Gap 13.1; Aspartate Amino Transferase 18 U/L (15-37); BUN Creatinine Ratio 16.3; Bilirubin Direct 0.1 mg/dL (0.0-0.2); Bilirubin Total 0.5 mg/dL (0.2-1.0); Calcium 8.9 mg/dL (8.5-10.1); Carbon Dioxide 28.8 mmol/L (21.0-32.0); Chloride 102 mmol/L (98-107); Chol HDL Ratio 2.9; Cholesterol 135 mg/dL (<=200); Estimated GFR (African America >60 (>=60); Estimated GFR (Non-African Ame 60 (>=60); Globulin 3.1 g/dL; Glucose 137 mg/dL (74-106); HDL Cholesterol 46 mg/dL (40-60); Magnesium 1.7 mg/dL (1.8-2.4); Potassium 3.9 mmol/L (3.5-5.1); Sodium 140 mmol/L (136-145); Total Protein 6.8 g/dL (6.4-8.2); Triglycerides 164 mg/dL (<=150); Uric Acid 5.4 mg/dL (3.5-7.2); VLDL CHOLESTEROL 32.8 mg/dL
[2023-06-28 16:10] LABS: BKV DNA, Quant PCR, Plasma Negative (Negative)
[2023-06-29 00:07] LABS: Tacrolimus (FK506), Blood 4.5 ng/mL (2.0-20.0)
== END 2023-06-26 09:37 | disposition home or self-care (01) ==
LOC: LAB 09:37
PROVIDERS: PCP Family Medicine
DX: R73.01 Impaired fasting glucose (principal); Z94.0 Kidney transplant status
CPT/HCPCS: 36415; 80053; 80061; 80197; 82248; 83735; 84100; 84550; 85025; 87799

== ENCOUNTER 2023-07-26 09:17 | Outpatient (OUT) | payer MEDICARE, SELFPAY ==
[2023-07-26 09:47] LABS: Basophils Percent Auto 0.6 % (0.2-2.0); Eosinophils Absolute Auto 0.1 10^3/uL (0.0-0.7); Eosinophils Percent Auto 1.6 % (0.9-7.0); Hematocrit 45.7 % (42.0-54.0); Hemoglobin 14.6 g/dL (14.0-18.0); Immature Granulocytes Abs Auto 0.03 10^3/uL (0.00-0.03); Immature Granulocytes Pct Auto 0.5 % (0.0-0.5); Lymphocytes Absolute Auto 0.8 10^3/uL (1.2-3.8); Lymphocytes Percent Auto 12.8 % (20.5-60.0); Mean Corpuscular HGB Conc 31.9 g/dL (29.9-35.2); Mean Corpuscular Hemoglobin 30.2 pg (25.9-34.0); Mean Corpuscular Volume 94.6 fL (80.0-94.0); Mean Platelet Volume 10.3 fL (9.5-13.5); Monocytes Absolute Auto 0.5 10^3/uL (0.3-0.8); Monocytes Percent Auto 8.2 % (1.7-12.0); Neutrophils Absolute Auto 4.8 10^3/uL (1.4-6.5); Neutrophils Percent Auto 76.3 % (43.0-75.0); Platelet Count 215 10^3/uL (150-450); Red Blood Count 4.83 10^6/uL (4.70-6.10); Red Cell Distribution Width 14.4 % (11.0-15.0); White Blood Count 6.3 10^3/uL (4.0-11.0)
[2023-07-26 10:32] LABS: Estimated Average Glucose 105 mg/dL; Glycohemoglobin A1C 5.3 % (4.5-6.2)
[2023-07-26 12:01] LABS: Alanine Aminotransferase 35 U/L (16-63); Albumin Globulin Ratio 1.2; Albumin Level 3.6 g/dL (3.4-5.0); Alkaline Phosphatase 81 U/L (46-116); Anion Gap 13.7; Aspartate Amino Transferase 19 U/L (15-37); BUN Creatinine Ratio 14.3; Bilirubin Direct 0.1 mg/dL (0.0-0.2); Bilirubin Total 0.6 mg/dL (0.2-1.0); Calcium 9.1 mg/dL (8.5-10.1); Carbon Dioxide 28.3 mmol/L (21.0-32.0); Chloride 105 mmol/L (98-107); Estimated GFR (African America >60 (>=60); Estimated GFR (Non-African Ame >60 (>=60); Globulin 2.9 g/dL; Glucose 131 mg/dL (74-106); Magnesium 1.7 mg/dL (1.8-2.4); Sodium 143 mmol/L (136-145); Total Protein 6.5 g/dL (6.4-8.2); Uric Acid 5.1 mg/dL (3.5-7.2)
[2023-07-27 04:07] LABS: Sex Horm Binding Glob, Serum 26.4 nmol/L (19.3-76.4)
[2023-07-30 00:09] LABS: Free Testosterone(Direct) 5.1 pg/mL (6.6-18.1); Testosterone 368 ng/dL (264-916)
== END 2023-07-26 09:18 | disposition home or self-care (01) ==
LOC: LAB 09:20
PROVIDERS: PCP Family Medicine
DX: Z94.0 Kidney transplant status (principal); R73.01 Impaired fasting glucose
CPT/HCPCS: 36415; 80053; 80197; 82248; 83036; 83735; 84100; 84270; 84402; 84403; 84550; 85025

== ENCOUNTER 2023-08-24 08:31 | Outpatient (OUT) | payer MEDICARE, SELFPAY ==
[2023-08-24 09:12] LABS: Basophils Percent Auto 0.6 % (0.2-2.0); Eosinophils Absolute Auto 0.1 10^3/uL (0.0-0.7); Eosinophils Percent Auto 1.8 % (0.9-7.0); Hematocrit 45.3 % (42.0-54.0); Hemoglobin 14.6 g/dL (14.0-18.0); Immature Granulocytes Abs Auto 0.03 10^3/uL (0.00-0.03); Immature Granulocytes Pct Auto 0.5 % (0.0-0.5); Mean Corpuscular HGB Conc 32.2 g/dL (29.9-35.2); Mean Corpuscular Hemoglobin 30.5 pg (25.9-34.0); Mean Corpuscular Volume 94.8 fL (80.0-94.0); Mean Platelet Volume 10.2 fL (9.5-13.5); Monocytes Absolute Auto 0.7 10^3/uL (0.3-0.8); Monocytes Percent Auto 10.7 % (1.7-12.0); Neutrophils Absolute Auto 4.7 10^3/uL (1.4-6.5); Neutrophils Percent Auto 71.4 % (43.0-75.0); Platelet Count 212 10^3/uL (150-450); Red Blood Count 4.78 10^6/uL (4.70-6.10); Red Cell Distribution Width 14.1 % (11.0-15.0); White Blood Count 6.6 10^3/uL (4.0-11.0)
[2023-08-24 10:34] LABS: Alanine Aminotransferase 33 U/L (16-63); Albumin Globulin Ratio 1.2; Albumin Level 3.6 g/dL (3.4-5.0); Alkaline Phosphatase 82 U/L (46-116); Anion Gap 12.7; Aspartate Amino Transferase 18 U/L (15-37); BUN Creatinine Ratio 14.8; Bilirubin Direct 0.1 mg/dL (0.0-0.2); Bilirubin Total 0.4 mg/dL (0.2-1.0); Calcium 9.3 mg/dL (8.5-10.1); Carbon Dioxide 27.2 mmol/L (21.0-32.0); Chloride 108 mmol/L (98-107); Estimated GFR (African America >60 (>=60); Estimated GFR (Non-African Ame >60 (>=60); Globulin 2.9 g/dL; Glucose 124 mg/dL (74-106); Magnesium 1.9 mg/dL (1.8-2.4); Phosphorus 3.4 mg/dL (2.6-4.7); Potassium 3.9 mmol/L (3.5-5.1); Sodium 144 mmol/L (136-145); Total Protein 6.5 g/dL (6.4-8.2)
[2023-08-27 16:07] LABS: Tacrolimus (FK506), Blood 5.8 ng/mL (2.0-20.0)
== END 2023-08-24 08:32 | disposition home or self-care (01) ==
LOC: LAB 08:33
PROVIDERS: PCP Family Medicine
DX: R73.01 Impaired fasting glucose (principal); Z94.0 Kidney transplant status
CPT/HCPCS: 36415; 80053; 80197; 82248; 83735; 84100; 84550; 85025

== ENCOUNTER 2023-09-27 09:13 | Outpatient (OUT) | payer MEDICARE, SELFPAY ==
--- OUTSIDE RECORDS SUMMARY | 2023-09-27 09:26 | XMS_ITS | CCD ---
Author Organization [facility] Care Team Providers Care [employer] Miner Name Role Phone Rosa M Gonzales Unavailable [phone] Unavailable Unavailable YONAS HERRERA Surgeon Unavailable CT Procedure Practitioner Unavailab YONAS Hsieh Attending Unavailable [...] ROSA M GONZALES Primary Care Unavailable YOJANA MCDANILES Surgeon Unavailable CT Procedure Practitioner Unavailab prabhakar MACDONALD, REFERRED Referring Unavailable ROSA M GONZALES Primary Care Unavailable DERICK VIDAL Attending Unavailable DERICK VIDAL Admitting Unavailable ROSA M GONZALES Primary Care Physician [phone] DR FEDERICO CHESTER Consulting Unavailable ELTAHAWY, DR LAYTON Admitting Unavailable ELTASUDHA, DR LAYTON Attending Unavailable DR ROSA M GONZALES Primary Care Unavailable MISC, DR PEDERSEN Admitting Unavailable MISC, DR PEDERSEN Attending Unavailable JANET, DR DUVAL Primary Care Unavailable MISC, DR PEDERSEN Consulting Unavailable MISC, DR PEDERSEN Admitting Unavailable MISC, DR PEDERSEN Attending Unavailable DR ROSA M GONZALES Primary Care Unavailable MISC, DR PEDERSEN Consulting Unavailable MISC, DR PEDERSEN Admitting Unavailable MISC, DR PEDERSEN Consulting Unavailable MISC, DR DOCTOR Attending Unavailable JANET, DR DUVAL Primary Care Unavailable WEST, DR AIME Arnold Consulting Unavailable ELTAHAWY, DR [...] Unavailable MISC, DR PEDERSEN Admitting Unavailable MISC, DOCTOR Attending Unavailable MISC, DR PEDERSEN Consulting Unavailable JANET, DR DUVAL Primary Care Unavailable MISC, DR PEDERSEN Admitting Unavailable Rosa M Gonazles MD Unavailable Rosa M Gonzales MD Primary Care Provider Lc GODWIN, Rosa M Unavailable KELVIN MISHRA Attending Unavailable PETEY REDDING Attending Unavailable HENRYSHAUN DIETRICH Referring Unavailable AHMADIE REDDING Attending Unavailable EKWENNA, OBI Admitting Unavailable EKWENNA, [...] BROWER Attending Unavailable Xochilt Graham Attending Unavaila ALICIA Evans Attending Unavailable ROSA M GONZALES Attending Unavailable Allergies Allergy Classification Reported Allergen(s) Allergy Type Date of Onset Reaction(s) Facility (1 source) 45733,00; Translations: [44422,00] Propensity to adverse reactions (disorder) 9 [facility] Repository (1 source) Cephalexin; Translations: [Keflex] Drug Allergy [facility] Repository Medications Current Medications Medication Drug Class(es) Dates Sig (Normalized) Sig (Original) [id number] 200 actuat albuterol 0.09 mg/actuat metered dose [...] Start: 02-03-2021 take 3 tablets by mo [facility] twice daily Mycophenolate Sodium 180 MG Oral [...] SL tablet Indications: Coronary artery disease involving [place] coronary artery of [place] heart with unstable angina pectoris ([facility]) Place 1 tablet (0.4 mg) under the [...] 5 MG tablet Indications: Kidney transplant status ([facility]) TAKE 1 TABLET BY MOUTH DAILY 90 [...] MG capsule Indications: History of kidney transplant (CMS/HCC) Take 1 capsule (0.5 mg) by mouth [...] sources) Coronary atherosclerosis; Translations: [Coronary atherosclerosis of [place] coronary artery] Onset: 2 Chronic Deficiency and [...] Range Facility Office Visiton 06-05-2023 Follow-up visit [id number] DukeVishal carlos Waldemar 1960 M Date Provider Department Center 06/05/2023 Brandon-FEDER[place] CHESTER MICHELLE Blackwood Family History Problem Relation Age of Onset Alzheimer's disease Mother Coronary artery disease Father Family Status - Relation Status Age at Mother Father Level of Service:15776 CT OFFICE/OUTPATIENT ESTABLISHED LOW MDM 20 MIN Normal [facility] TACROLIMUS (FK506), BLOODon 05-31-2023 TACROLIMUS (FK506), BLOOD 5.5 ng/mL 2.0 - 20.0 ng/mL [facility] Comment on above: This test was develo ped and its performance characteristics determined by [employer]. It has not been cleared or approved by the Food and Drug Administration. Trough (immediately following transplant) 15.0 Trough (steady state, 2 weeks or more after transplant): 3.0 - 8.0 Performed by LC-MS/MS technology. Performed at: [address] [id number] Supervisor Data Processing: Evan Orozco MD, Phone: [phone] [facility] BILIRUBIN, DIRECTon 05-18-19 24 Magnesium [Mass/Vol] 0.2 mg/dL Normal 0-0.2 [facility] Comment on above: Performed By: #### L [id number] #### [facility] ([facility]) [address] [place] [address] CBC WITH AUTO DIFFERENTIALon 05-18-2023 Basophils (Bld) [#/Vol] 0.05 10*3/uL Normal 0.00-0.20 [facility] Comment on above: Performed By: #### L [id number] #### [facility] ([facility]) [address] [place] [address] Basophils/100 WBC (Bld) 0.6 % Normal 0.0-1.0 [facility] Comment on above: Performed By: #### L [id number] #### [facility] ([facility]) [address] [place] [address] Eosinophils (Bld) [#/Vol] 0.12 10*3/uL Normal 0.00-0.50 [facility] Comment on above: Performed By: #### L [id number] #### [facility] ([facility]) [address] [place] [address] Eosinophils/100 WBC (Bld) 1.4 % Normal 0.0-6.0 [facility] Comment on above: Performed By: #### L [id number] #### [facility] ([facility]) [address] [place] [address] Erythrocyte distribution width (RBC) [Ratio] 14.9 % Normal 11.5-15.0 [facility] Comment on above: Performed By: #### L [id number] #### [facility] ([facility]) [address] [place] [address] ERYTHROCYTE MEAN CORPUSCULAR HEMOGLOBIN CONCENTRATION (G/DL) BY AUTOMATED 33.4 g/dL Normal 32.0-35.0 [facility] Comment on above: Performed By: #### L [id number] #### [facility] ([facility]) [address] [place] [address] Hematocrit (Bld) [Volume fraction] 48.5 % Normal 39.0-55.0 [facility] Comment on above: Performed By: #### L [id number] #### [facility] ([facility]) [address] [place] [address] Hemoglobin (Bld) [Mass/Vol] 16.2 g/dL Normal 13.0-17.0 [facility] Comment on above: Performed By: #### L [id number] #### [facility] ([facility]) [address] [place] [address] Immature granulocytes (Bld) [#/Vol] 0.07 10*3/uL Normal 0.00-0.20 [facility] Comment on above: Performed By: #### L [id number] #### [facility] ([facility]) [address] [place] [address] Immature granulocytes/100 WBC (Bld) 0.8 % Normal 0.0-1.0 [facility] Comment on above: Performed By: #### L [id number] #### [facility] ([facility]) [address] [place] [address] Lymphocytes (Bld) [#/Vol] 1.06 10*3/uL Low 1.20-4.00 [facility] Comment on above: Performed By: #### L [id number] #### [facility] ([facility]) [address] [place] [address] Lymphocytes/100 WBC (Bld) 12.3 % Low 20.0-45.0 [facility] Comment on above: Performed By: #### L [id number] #### [facility] ([facility]) [address] [place] [address] MCH (RBC) [Entitic mass] 29.9 pg Normal 27.0-33.0 [facility] Comment on above: Performed By: #### L [id number] #### [facility] ([facility]) [address] [place] [address] MCV (RBC) [Entitic vol] 89.6 fL Normal 82.0-98.0 [facility] Comment on above: Performed By: #### L [id number] #### [facility] ([facility]) [address] [place] [address] Monocytes (Bld) [#/Vol] 0.68 10*3/uL Normal 0.10-1.00 [facility] Comment on above: Performed By: #### L [id number] #### [facility] ([facility]) [address] [place] [address] Monocytes/100 WBC (Bld) 7.9 % Normal 5.0-12.0 [facility] Comment on above: Performed By: #### L [id number] #### [facility] ([facility]) [address] [place] [address] Neutrophils (Bld) [#/Vol] 6.61 10*3/uL Normal 1.60-7.60 [facility] Comment on above: Performed By: #### L [id number] #### [facility] ([facility]) [address] [place] [address] Neutrophils/100 WBC (Bld) 77.0 % High 40.0-72.0 [facility] Comment on above: Performed By: #### L [id number] #### [facility] ([facility]) [address] [place] [address] NRBC (PER 100 WBCS) BY AUTOMATED COUNT 0.0 % Normal 0 [facility] Comment on above: Performed By: #### L [id number] #### [facility] ([facility]) [address] [place] [address] PLATELETS (10*3/UL) IN BLOOD AUTOMATED COUNT 254 10*3/uL Normal 150-400 [facility] Comment on above: Performed By: #### L [id number] #### [facility] ([facility]) [address] [place] [address] RBC (Bld) [#/Vol] 5.41 10*6/uL Normal 4.20-5.70 [facility] Comment on above: Performed By: #### L [id number] #### [facility] ([facility]) [address] [place] [address] WBC (Bld) [#/Vol] 8.59 10*3/uL Normal 4.00-10.60 [facility] Comment on above: Performed By: #### L [id number] #### [facility] ([facility]) [address] [place] [address] COMPREHENSIVE METABOLIC PANE Nitin 05-18-2023 Albumin [Mass/Vol] 4.5 g/dL Normal 3.5-5.7 [facility] Comment on above: Performed By: #### L [id number] #### [facility] ([facility]) [address] [place] [address] ALP [Catalytic activity/Vol] 78 U/L Normal 34-104 [facility] Comment on above: Performed By: #### L [id number] #### [facility] ([facility]) [address] [place] [address] ALT [Catalytic activity/Vol] 22 U/L Normal 7-52 [facility] Comment on above: Performed By: #### L [id number] #### [facility] ([facility]) [address] [place] [address] Anion gap [Moles/Vol] 12 mmol/L Normal 7-20 [facility] Comment on above: Performed By: #### L [id number] #### [facility] ([facility]) [address] [place] [address] AST [Catalytic activity/Vol] 17 U/L Normal 13-39 [facility] Comment on above: Performed By: #### L [id number] #### [facility] ([facility]) [address] [place] [address] Bilirubin [Mass/Vol] 0.8 mg/dL Normal 0.3-1.0 [facility] Comment on above: Performed By: #### L [id number] #### [facility] ([facility]) [address] [place] [address] Calcium [Mass/Vol] 9.4 mg/dL Normal 8.6-10.3 [facility] Comment on above: Performed By: #### L [id number] #### [facility] ([facility]) [address] [place] [address] Chloride [Moles/Vol] 101 mmol/L Normal 98-107 [facility] Comment on above: Performed By: #### L [id number] #### [facility] ([facility]) [address] [place] [address] CO2 [Moles/Vol] 26 mmol/L Normal 21-31 [facility] Comment on above: Performed By: #### L [id number] #### [facility] ([facility]) [address] [place] [address] Creatinine [Mass/Vol] 1.24 mg/dL Normal 0.70-1.30 [facility] Comment on above: Performed By: #### L [id number] #### [facility] ([facility]) [address] [place] [address] GLOMERULAR FILTRATION RATE ML/MIN/1.73 SQ M.PREDICTED 65.7 mL/min/1.73m*2 Normal >60.0 [facility] Comment on above: Result Comment: [facility]???s estimated glomerular filtration rate (eGFR) will [...] group of individuals. Performed By: #### L [id number] #### [facility] ([facility]) [address] [place] [address] Glucose [Mass/Vol] 130 mg/dL High 70-100 [facility] Comment on above: Performed By: #### L [id number] #### [facility] ([facility]) [address] [place] [address] Potassium [Moles/Vol] 4.0 mmol/L Normal 3.5-5.1 [facility] Comment on above: Performed By: #### L [id number] #### [facility] ([facility]) [address] [place] [address] Protein [Mass/Vol] 6.8 g/dL Normal 6.0-8.3 [facility] Comment on above: Performed By: #### L [id number] #### [facility] ([facility]) [address] [place] [address] Sodium [Moles/Vol] 135 mmol/L Low 136-145 [facility] Comment on above: Performed By: #### L [id number] #### [facility] ([facility]) [address] [place] [address] Urea nitrogen [Mass/Vol] 24 mg/dL Normal 7-25 [facility] Comment on above: Performed By: #### L [id number] #### [facility] ([facility]) [address] [place] [address] UREA NITROGEN/CREATININE (MASS RATIO) IN SER/PLAS 19.4 Normal [facility] Comment on above: Performed By: #### L [id number] #### [facility] ([facility]) [address] [place] [address] Follow-Upon 05-18-2023 Follow-Up [id number] Vishal Duke 1960 M Date Provider Department Center 05/18/2023 [id number], OBI TXP None Family History Problem Relation Age of Onset Alzheimer's disease Mother Coronary artery disease Father Family Status - Relation Status Age at Mother Father Level of Service:40937 CT OFFICE/OUTPATIENT ESTABLISHED LOW MDM 20 MIN Reason for Visit and Comments: Kidney Follow-up [] - Patient has no major concerns today Normal [facility] HEMOGLOBIN A1Con 05-18-2023 Glucose [Mass/Vol] 137 mg/dL Normal [facility] Comment on above: Performed By: #### L [id number] #### [facility] ([facility]) [address] [place] [address] HbA1c (Bld) [Mass fraction] 6.4 % High 4.0-6.0 [facility] Comment on above: Performed By: #### L [id number] #### [facility] ([facility]) [address] [place] [address] LIPID PANELon 05-18-2023 CHOL/HDL 3.2 mg/dL Normal [facility] Comment on above: Performed By: #### L [id number] #### [facility] ([facility]) [address] [place] [address] Cholesterol [Mass/Vol] 120 mg/dL Normal 120-200 [facility] Comment on above: Performed By: #### L [id number] #### [facility] ([facility]) [address] [place] [address] Magnesium [Mass/Vol] 209 mg/dL High 40-149 [facility] Comment on above: Result Comment: TRIG LYCERIDE REFERENCE RANGE: 20 YEARS AND OLDER CARDIOVASCULAR RISK LESS THAN 150 mg/dL LOW RISK 150 TO 199 mg/dL BORDERLINE RISK 200 mg/dL AND GREATER HIGH RISK Performed By: #### L [id number] #### [facility] ([facility]) [address] [place] [address] Magnesium [Mass/Vol] 40 mg/dL Normal 0-160 [facility] Comment on above: Performed By: #### L [id number] #### [facility] ([facility]) [address] [place] [address] Magnesium [Mass/Vol] 38 mg/dL Normal 23-92 [facility] Comment on above: Performed By: #### L [id number] #### [facility] ([facility]) [address] [place] [address] NON HDL CHOL. (LDL+VLDL) 82 Normal [facility] Comment on above: Performed By: #### L [id number] #### [facility] ([facility]) [address] [place] [address] TOTAL VLDL-C 42 mg/dL High 0-40 [facility] Comment on above: Performed By: #### L [id number] #### [facility] ([facility]) [address] [place] [address] Labon 05-18-2023 Lab [id number] Vishal Duke 1960 M Date Provider Department Center 05/18/2023 [id number] DRAW STATION KXT Draw [facility] Family History Problem Relation Age of Onset Alzheimer's disease Mother Coronary artery disease Father Family Status - Relation Status Age at Mother Father Normal [facility] MAGNESIUMon 05-18-2023 Magnesium [Mass/Vol] 1.6 mg/dL Low 1.9-2.7 [facility] Comment on above: Performed By: #### L [id number] #### [facility] ([facility]) [address] [place] [address] Orders Onlyon 05-18-2023 Orders Only [id number] ZuleikaVishal Waldemar 1960 M Date Provider Department Center 05/18/2023 [id number] BLANCAS TXP None Family History Problem Relation Age of Onset Alzheimer's disease Mother Coronary artery disease Father Family Status - Relation Status Age at Mother Father Normal [facility] PHOSPHORUSon 05-18-2023 Magnesium [Mass/Vol] 3.5 mg/dL Normal 2.5-5.0 [facility] Comment on above: Performed By: #### L [id number] ####[facility] ([facility])[address] [place] [address] TACROLIMUS LEVELon Tacrolimus (Bld) [Mass/Vol] 11.6 ng/mL Normal 5.0-20.0 [facility] Comment on above: Result Comment: The [employer] Tacrolimus assay is a delayed one-step immunoassay for the quantitative determination of tacrolimus in human whole blood using the chemiluminescent microparticle immunoassay (CMIA) technology with flexible assay protocols, referred to as Chemiflex. Performed By: #### L [id number] #### [facility] ([facility]) [address] [place] [address] TESTOSTERONE, FREE AND TOTAL , AND SHBGon 05-18-2023 SEX HORMONE BINDING GLOBULIN (NMOL/L) IN SER/PLAS 28 nmol/L Normal 11-80 [facility] Comment on above: Performed By: #### L [id number] #### [facility] ([facility]) [address] [place] [address] TESTOSTERONE (NG/DL) IN SER/PLAS 319 ng/dL Normal 220-1000 [facility] Comment on above: Performed By: #### L [id number] #### [facility] ([facility]) [address] [place] [address] TESTOSTERONE FREE (NG/ML) IN SER/PLAS 69.3 pg/mL Normal 47-244 [facility] Comment on above: Result Comment: The concentration of free testosterone is derived from a mathematical expression based on the constant for the binding of testosterone to albumin and/or sex hormone binding globulin. Test Performed by [employer] [facility] [place] [address] - Released 05/18/2023 15:33 Performed By: #### L [id number] #### [facility] ([facility]) [address] [place] [address] URIC ACIDon 05-18-2023 Magnesium [Mass/Vol] 5.1 mg/dL Normal 4.4-7.6 [facility] Comment on above: Performed By: #### L [id number] #### [facility] ([facility]) [address] [place] [address] BILIRUBIN, DIRECTon 03-28-20 Magnesium [Mass/Vol] 0.1 mg/dL Normal 0-0.2 [facility] Comment on above: Performed By: #### L [id number] #### [facility] ([facility]) [address] [place] [address] CBC WITH AUTO DIFFERENTIALon 03-28-2023 Basophils (Bld) [#/Vol] 0.08 10*3/uL Normal 0.00-0.20 [facility] Comment on above: Performed By: #### L [id number] #### [facility] ([facility]) [address] [place] [address] Basophils/100 WBC (Bld) 0.8 % Normal 0.0-1.0 [facility] Comment on above: Performed By: #### L [id number] #### [facility] ([facility]) [address] [place] [address] Eosinophils (Bld) [#/Vol] 0.17 10*3/uL Normal 0.00-0.50 [facility] Comment on above: Performed By: #### L [id number] #### [facility] ([facility]) [address] [place] [address] Eosinophils/100 WBC (Bld) 1.7 % Normal 0.0-6.0 [facility] Comment on above: Performed By: #### L [id number] #### [facility] ([facility]) [address] [place] [address] Erythrocyte distribution width (RBC) [Ratio] 14.8 % Normal 11.5-15.0 [facility] Comment on above: Performed By: #### L [id number] #### [facility] ([facility]) [address] [place] [address] ERYTHROCYTE MEAN CORPUSCULAR HEMOGLOBIN CONCENTRATION (G/DL) BY AUTOMATED 32.9 g/dL Normal 32.0-35.0 [facility] Comment on above: Performed By: #### L [id number] #### [facility] ([facility]) [address] [place] [address] Hematocrit (Bld) [Volume fraction] 49.3 % Normal 39.0-55.0 [facility] Comment on above: Performed By: #### L [id number] #### [facility] ([facility]) [address] [place] [address] Hemoglobin (Bld) [Mass/Vol] 16.2 g/dL Normal 13.0-17.0 [facility] Comment on above: Performed By: #### L [id number] #### [facility] ([facility]) [address] [place] [address] Immature granulocytes (Bld) [#/Vol] 0.07 10*3/uL Normal 0.00-0.20 [facility] Comment on above: Performed By: #### L [id number] #### [facility] ([facility]) [address] [place] [address] Immature granulocytes/100 WBC (Bld) 0.7 % Normal 0.0-1.0 [facility] Comment on above: Performed By: #### L [id number] #### [facility] ([facility]) [address] [place] [address] Lymphocytes (Bld) [#/Vol] 1.26 10*3/uL Normal 1.20-4.00 [facility] Comment on above: Performed By: #### L [id number] #### [facility] ([facility]) [address] [place] [address] Lymphocytes/100 WBC (Bld) 12.4 % Low 20.0-45.0 [facility] Comment on above: Performed By: #### L [id number] #### [facility] ([facility]) [address] [place] [address] MCH (RBC) [Entitic mass] 29.8 pg Normal 27.0-33.0 [facility] Comment on above: Performed By: #### L [id number] #### [facility] ([facility]) [address] [place] [address] MCV (RBC) [Entitic vol] 90.8 fL Normal 82.0-98.0 [facility] Comment on above: Performed By: #### L [id number] #### [facility] ([facility]) [address] [place] [address] Monocytes (Bld) [#/Vol] 0.94 10*3/uL Normal 0.10-1.00 [facility] Comment on above: Performed By: #### L [id number] #### [facility] ([facility]) [address] [place] [address] Monocytes/100 WBC (Bld) 9.2 % Normal 5.0-12.0 [facility] Comment on above: Performed By: #### L [id number] #### [facility] ([facility]) [address] [place] [address] Neutrophils (Bld) [#/Vol] 7.66 10*3/uL High 1.60-7.60 [facility] Comment on above: Performed By: #### L [id number] #### [facility] ([facility]) [address] [place] [address] Neutrophils/100 WBC (Bld) 75.2 % High 40.0-72.0 [facility] Comment on above: Performed By: #### L [id number] #### [facility] (BEAKER) [address] [place] [address] NRBC (PER 100 WBCS) BY AUTOMATED COUNT 0.0 % Normal 0 [facility] Comment on above: Performed By: #### L [id number] #### [facility] ([facility]) [address] [address] PLATELETS (10*3/UL) IN BLOOD AUTOMATED COUNT 276 10*3/uL Normal 150-400 [facility] Comment on above: Performed By: #### L [id number] #### [facility] ([facility]) [address] [place] [address] RBC (Bld) [#/Vol] 5.43 10*6/uL Normal 4.20-5.70 [facility] Comment on above: Performed By: #### L [id number] #### [facility] ([facility]) [address] [place] [address] WBC (Bld) [#/Vol] 10.18 10*3/uL Normal 4.00-10.60 [facility] Comment on above: Performed By: #### L [id number] #### [facility] ([facility]) [address] [place] [address] COMPREHENSIVE METABOLIC PANE Nitin 03-28-2023 Albumin [Mass/Vol] 4.7 g/dL Normal 3.5-5.7 [facility] Comment on above: Performed By: #### L [id number] ####[facility] ([facility])[address] [place] [address] ALP [Catalytic activity/Vol] 92 U/L Normal 34-104 [facility] Comment on above: Performed By: #### L [id number] ####[facility] ([facility])[address] [place] [address] ALT [Catalytic activity/Vol] 19 U/L Normal 7-52 [facility] Comment on above: Performed By: #### L [id number] ####[facility] ([facility])[address] [place] [address] Anion gap [Moles/Vol] 11 mmol/L Normal 7-20 [facility] Comment on above: Performed By: #### L [id number] ####[facility] ([facility])[address] [place] [address] AST [Catalytic activity/Vol] 17 U/L Normal 13-39 [facility] Comment on above: Performed By: #### L [id number] ####[facility] ([facility])[address] [place] [address] Bilirubin [Mass/Vol] 0.6 mg/dL Normal 0.3-1.0 [facility] Comment on above: Performed By: #### L [id number] ####[facility] ([facility])[address] [place] [address] Calcium [Mass/Vol] 9.9 mg/dL Normal 8.6-10.3 [facility] Comment on above: Performed By: #### L [id number] ####[facility] ([facility])[address] [place] [address] Chloride [Moles/Vol] 105 mmol/L Normal 98-107 [facility] Comment on above: Performed By: #### L [id number] ####[facility] ([facility])[address] [place] [address] CO2 [Moles/Vol] 27 mmol/L Normal 21-31 [facility] Comment on above: Performed By: #### L [id number] ####[facility] ([facility])[address] [place] [address] Creatinine [Mass/Vol] 1.21 mg/dL Normal 0.70-1.30 [facility] Comment on above: Performed By: #### L [id number] ####[facility] ([facility])[address] [place] [address] GLOMERULAR FILTRATION RATE ML/MIN/1.73 SQ M.PREDICTED 67.7 mL/min/1.73m*2 Normal >60.0 [facility] Comment on above: Result Comment: [facility]???s estimated glomerular filtration rate (eGFR) will [...] of individuals. Performed By: #### L [id number] ####[facility] ([facility])[address] [place] [address] Glucose [Mass/Vol] 136 mg/dL High 70-100 [facility] Comment on above: Performed By: #### L [id number] ####[facility] ([facility])[address] [place] [address] Potassium [Moles/Vol] 4.8 mmol/L Normal 3.5-5.1 [facility] Comment on above: Performed By: #### L [id number] ####[facility] ([facility])[address] [place] [address] Protein [Mass/Vol] 6.9 g/dL Normal 6.0-8.3 [facility] Comment on above: Performed By: #### L [id number] ####[facility] ([facility])[address] [place] [address] Sodium [Moles/Vol] 138 mmol/L Normal 136-145 [facility] Comment on above: Performed By: #### L [id number] ####[facility] ([facility])[address] [place] [address] Urea nitrogen [Mass/Vol] 20 mg/dL Normal 7-25 [facility] Comment on above: Performed By: #### L [id number] ####[facility] ([facility])[address] [place] [address] UREA NITROGEN/CREATININE (MASS RATIO) IN SER/PLAS 16.5 Normal [facility] Comment on above: Performed By: #### L [id number] ####[facility] ([facility])[address] [place] [address] Follow-Upon 03-28-2023 Follow-Up [id number] Vishal Duke Waldemar 1960 M Date Provider Department Center 03/28/2023 124-PETEY REDDING None Family History Problem Relation Age of Onset Alzheimer's disease Mother Coronary artery disease Father Family Status - Relation Status Age at Mother Father Level of Service:62958 CT OFFICE/OUTPATIENT ESTABLISHED MOD MDM 30-39 MIN Reason for Visit and Comments: Kidney Follow-up [] - Patient have no concerns Normal [facility] LIPID PANELon 03-28-2023 CHOL/HDL 2.8 mg/dL Normal [facility] Comment on above: Performed By: #### L [id number] #### [facility] ([place]) [address] [place] [address] Cholesterol [Mass/Vol] 125 mg/dL Normal 120-200 [facility] Comment on above: Performed By: #### L [id number] #### [facility] ([facility]AKER) [address] [place] [address] Magnesium [Mass/Vol] 157 mg/dL High 40-149 [facility] Comment on above: Result Comment: TRIG LYCERIDE REFERENCE RANGE: 20 YEARS AND OLDER CARDIOVASCULAR RISK LESS THAN 150 mg/dL LOW RISK 150 TO 199 mg/dL BORDERLINE RISK 200 mg/dL AND GREATER HIGH RISK Performed By: #### L [id number] #### [facility] ([facility]ER) [address] [place] [address] Magnesium [Mass/Vol] 49 mg/dL Normal 0-160 [facility] Comment on above: Performed By: #### L [id number] #### [facility] ([facility]) [address] [place] [address] Magnesium [Mass/Vol] 45 mg/dL Normal 23-92 [facility] Comment on above: Performed By: #### L [id number] #### [facility] ([facility]) [address] [place] [address] NON HDL CHOL. (LDL+VLDL) 80 Normal [facility] Comment on above: Performed By: #### L [id number] #### [facility] ([facility]) [address] [place] [address] TOTAL VLDL-C 31 mg/dL Normal 0-40 [facility] Comment on above: Performed By: #### L [id number] #### [facility] ([facility]) [address] [place] [address] Labon 03-28-2023 Lab [id number] Vishal Duke 1960 M Date Provider Department [place] 03/28/2023 [id number] DRAW STATION KXT Draw [facility] Family History Problem Relation Age of Onset Alzheimer's disease Mother Coronary artery disease Father Family Status - Relation Status Age at Mother Father Normal [facility] MAGNESIUMon 03-28-2023 Magnesium [Mass/Vol] 1.5 mg/dL Low 1.9-2.7 [facility] Comment on above: Performed By: #### L [id number] ####[facility] ([facility])[address] [place] [address] PHOSPHORUSon 03-28-2023 Magnesium [Mass/Vol] 3.6 mg/dL Normal 2.5-5.0 [facility] Comment on above: Performed By: #### L [id number] #### [facility] ([facility]) [address] [place] [address] TACROLIMUS LEVELon Tacrolimus (Bld) [Mass/Vol] 9.6 ng/mL Normal 5.0-20.0 [facility] Comment on above: Result Comment: The [employer] Tacrolimus assay is a delayed one-step immunoassay for the quantitative determination of tacrolimus in human whole blood using the chemiluminescent microparticle immunoassay (CMIA) technology with flexible assay protocols, referred to as Chemiflex. Performed By: #### L [id number] #### [facility] ([facility]) [address] [place] [address] URIC ACIDon 03-28-2023 Magnesium [Mass/Vol] 5.2 mg/dL Normal 4.4-7.6 [facility] Comment on above: Performed By: #### L [id number] #### [facility] ([facility]) [address] [place] [address] Orders Onlyon 03-08-2023 Orders Only [id number] ZuleikaVishal Waldemar 1960 M Date Provider Department Center 03/08/2023 1971-FARRUKH BLANCAS TXP None Family History Problem Relation Age of Onset Alzheimer's disease Mother Coronary artery disease Father Family Status - Relation Status Age at Mother Father Normal [facility] BILIRUBIN, DIRECTon 02-10-20 Magnesium [Mass/Vol] 0.1 mg/dL Normal 0-0.2 [facility] Comment on above: Performed By: #### L [id number] #### [facility] ([facility]) [address] [place] [address] CBC WITH AUTO DIFFERENTIALon 02-09-2023 Basophils (Bld) [#/Vol] 0.10 10*3/uL Normal 0.00-0.20 [facility] Comment on above: Performed By: #### L [id number] ####[facility] ([facility])[address] [place] [address] Basophils/100 WBC (Bld) 1.0 % Normal 0.0-1.0 [facility] Comment on above: Performed By: #### L [id number] ####[facility] ([facility])[address] [place] [address] Eosinophils (Bld) [#/Vol] 0.10 10*3/uL Normal 0.00-0.50 [facility] Comment on above: Performed By: #### L [id number] ####[facility] ([facility])[address] [place] [address] Eosinophils/100 WBC (Bld) 1.0 % Normal 0.0-6.0 [facility] Comment on above: Performed By: #### L [id number] ####[facility] ([facility])[address] [place] [address] Erythrocyte distribution width (RBC) [Ratio] 14.0 % Normal 11.5-15.0 [facility] Comment on above: Performed By: #### L [id number] ####[facility] ([facility]ER)[address] [place] [address] ERYTHROCYTE MEAN CORPUSCULAR HEMOGLOBIN CONCENTRATION (G/DL) BY AUTOMATED 32.3 g/dL Normal 32.0-35.0 [facility] Comment on above: Performed By: #### L [id number] ####[facility] (BEAKER)[address] [place] [address] Hematocrit (Bld) [Volume fraction] 46.4 % Normal 39.0-55.0 [facility] Comment on above: Performed By: #### L [id number] ####[facility] (BEAKER)[address] [place] [address] Hemoglobin (Bld) [Mass/Vol] 15.0 g/dL Normal 13.0-17.0 [facility] Comment on above: Performed By: #### L [id number] ####[facility] ([facility]ER)[address] [place] [address] Immature granulocytes (Bld) [#/Vol] 0.09 10*3/uL Normal 0.00-0.20 [facility] Comment on above: Performed By: #### L [id number] ####[facility] ([facility]AKER)[address] [place] [address] Immature granulocytes/100 WBC (Bld) 0.9 % Normal 0.0-1.0 [facility] Comment on above: Performed By: #### L [id number] ####[facility] ([facility]AKER)[address] [place] [address] Lymphocytes (Bld) [#/Vol] 0.92 10*3/uL Low 1.20-4.00 [facility] Comment on above: Performed By: #### L [id number] ####[facility] ([facility]AKER)[address] [place] [address] Lymphocytes/100 WBC (Bld) 9.2 % Low 20.0-45.0 [facility] Comment on above: Performed By: #### L [id number] ####[facility] (BEAKER)[address] [place] [address] MCH (RBC) [Entitic mass] 29.5 pg Normal 27.0-33.0 [facility] Comment on above: Performed By: #### L [id number] ####[facility] (BEAKER)[address] [place] [address] MCV (RBC) [Entitic vol] 91.3 fL Normal 82.0-98.0 [facility] Comment on above: Performed By: #### L [id number] ####[facility] (BEAKER)[address] [place] [address] Monocytes (Bld) [#/Vol] 0.75 10*3/uL Normal 0.10-1.00 [facility] Comment on above: Performed By: #### L [id number] ####[facility] (BEAKER)[address] [place] [address] Monocytes/100 WBC (Bld) 7.5 % Normal 5.0-12.0 [facility] Comment on above: Performed By: #### L [id number] ####[facility] ([facility]AKER)[address] [place] [address] Neutrophils (Bld) [#/Vol] 8.09 10*3/uL High 1.60-7.60 [facility] Comment on above: Performed By: #### L [id number] ####[facility] (BEAKER)[address] [place] [address] Neutrophils/100 WBC (Bld) 80.4 % High 40.0-72.0 [facility] Comment on above: Performed By: #### L [id number] ####[facility] ([facility]AKER)[address] [place] [address] NRBC (PER 100 WBCS) BY AUTOMATED COUNT 0.0 % Normal 0 [facility] Comment on above: Performed By: #### L [id number] ####[facility] ([facility]ER)[address] [place] [address] PLATELETS (10*3/UL) IN BLOOD AUTOMATED COUNT 567 10*3/uL High 150-400 [facility] Comment on above: Performed By: #### L [id number] ####[facility] ([facility])[address] [place] [address] RBC (Bld) [#/Vol] 5.08 10*6/uL Normal 4.20-5.70 [facility] Comment on above: Performed By: #### L [id number] ####[facility] ([facility])[address] [place] [address] WBC (Bld) [#/Vol] 10.05 10*3/uL Normal 4.00-10.60 [facility] Comment on above: Performed By: #### L [id number] ####[facility] ([facility])[address] [place] [address] COMPREHENSIVE METABOLIC PANE Nitin 02-09-2023 Albumin [Mass/Vol] 4.5 g/dL Normal 3.5-5.7 [facility] Comment on above: Performed By: #### L [id number] #### [facility] ([facility]) [address] [place] [address] ALP [Catalytic activity/Vol] 132 U/L High 34-104 [facility] Comment on above: Performed By: #### L [id number] #### [facility] ([facility]) [address] [place] [address] ALT [Catalytic activity/Vol] 47 U/L Normal 7-52 [facility] Comment on above: Performed By: #### L [id number] #### [facility] ([facility]) [address] [place] [address] Anion gap [Moles/Vol] 13 mmol/L Normal 7-20 [facility] Comment on above: Performed By: #### L [id number] #### [facility] ([facility]) [address] [place] [address] AST [Catalytic activity/Vol] 27 U/L Normal 13-39 [facility] Comment on above: Performed By: #### L [id number] #### [facility] ([facility]) [address] [place] [address] Bilirubin [Mass/Vol] 0.6 mg/dL Normal 0.3-1.0 [facility] Comment on above: Performed By: #### L [id number] #### [facility] ([facility]) [address] [place] [address] Calcium [Mass/Vol] 9.7 mg/dL Normal 8.6-10.3 [facility] Comment on above: Performed By: #### L [id number] #### [facility] ([facility]) [address] [place] [address] Chloride [Moles/Vol] 102 mmol/L Normal 98-107 [facility] Comment on above: Performed By: #### L [id number] #### [facility] ([facility]) [address] [place] [address] CO2 [Moles/Vol] 27 mmol/L Normal 21-31 [facility] Comment on above: Performed By: #### L [id number] #### [facility] ([facility]) [address] [place] [address] Creatinine [Mass/Vol] 1.17 mg/dL Normal 0.70-1.30 [facility] Comment on above: Performed By: #### L [id number] #### [facility] ([facility]) [address] [place] [address] GLOMERULAR FILTRATION RATE ML/MIN/1.73 SQ M.PREDICTED 70.5 mL/min/1.73m*2 Normal >60.0 [facility] Comment on above: Result Comment: [facility]???s estimated glomerular filtration rate (eGFR) will [...] group of individuals. Performed By: #### L [id number] #### [facility] ([facility]) [address] [place] [address] Glucose [Mass/Vol] 111 mg/dL High 70-100 [facility] Comment on above: Performed By: #### L [id number] #### [facility] ([facility]) [address] [place] [address] Potassium [Moles/Vol] 4.6 mmol/L Normal 3.5-5.1 [facility] Comment on above: Performed By: #### L [id number] #### [facility] ([facility]) [address] [place] [address] Protein [Mass/Vol] 7.2 g/dL Normal 6.0-8.3 [facility] Comment on above: Performed By: #### L [id number] #### [facility] ([facility]) [address] [place] [address] Sodium [Moles/Vol] 137 mmol/L Normal 136-145 [facility] Comment on above: Performed By: #### L [id number] #### [facility] ([facility]) [address] [place] [address] Urea nitrogen [Mass/Vol] 19 mg/dL Normal 7-25 [facility] Comment on above: Performed By: #### L [id number] #### [facility] ([facility]) [address] [place] [address] UREA NITROGEN/CREATININE (MASS RATIO) IN SER/PLAS 16.2 Normal [facility] Comment on above: Performed By: #### L [id number] #### [facility] ([facility]) [address] [place] [address] Follow-Upon 02-09-2023 Follow-Up [id number] Vishal Duke 1960 M Date Provider Department Center 02/09/2023 263-BOBBY MALDONADO TXP None Family History Problem Relation Age of Onset Alzheimer's disease Mother Coronary artery disease Father Family Status - Relation Status Age at Mother Father Level of Service:46079 CT OFFICE/OUTPATIENT ESTABLISHED LOW MDM 20-29 MIN Reason for Visit and Comments: Kidney Follow-up [] - No major concerns today Normal [facility] HEMOGLOBIN A1Con 02-09-2023 Glucose [Mass/Vol] 134 mg/dL Normal [facility] Comment on above: Performed By: #### L [id number] #### [facility] ([place]) [address] [place] [address] HbA1c (Bld) [Mass fraction] 6.3 % High 4.0-6.0 [facility] Comment on above: Performed By: #### L [id number] #### [facility] ([place]) [address] [place] [address] LIPID PANELon 02-09-2023 CHOL/HDL 3.6 mg/dL Normal [facility] Comment on above: Performed By: #### L [id number] ####[facility] ([place])[address] [place] [address] Cholesterol [Mass/Vol] 126 mg/dL Normal 120-200 [facility] Comment on above: Performed By: #### L [id number] ####[facility] ([place])[address] [place] [address] Magnesium [Mass/Vol] 214 mg/dL High 40-149 [facility] Comment on above: Result Comment: TRIG LYCERIDE REFERENCE RANGE: 20 YEARS AND OLDER CARDIOVASCULAR RISK LESS THAN 150 mg/dL LOW RISK 150 TO 199 mg/dL BORDERLINE RISK 200 mg/dL AND GREATER HIGH RISK Performed By: #### L [id number] ####[facility] ([place])[address] [place] [address] Magnesium [Mass/Vol] 48 mg/dL Normal 0-160 [facility] Comment on above: Performed By: #### L [id number] ####[facility] ([facility])[address] [place] [address] Magnesium [Mass/Vol] 35 mg/dL Normal 23-92 [facility] Comment on above: Performed By: #### L [id number] ####[facility] ([facility])[address] [place] [address] NON HDL CHOL. (LDL+VLDL) 91 Normal [facility] Comment on above: Performed By: #### L [id number] ####[facility] ([facility])[address] [place] [address] TOTAL VLDL-C 43 mg/dL High 0-40 [facility] Comment on above: Performed By: #### L [id number] ####[facility] ([facility])[address] [place] [address] Labon 02-09-2023 Lab [id number] Vishal Duke 1960 M Date Provider Department [place] 02/09/2023 [id number] DRAW STATION KXT Draw [facility] Family History Problem Relation Age of Onset Alzheimer's disease Mother Coronary artery disease Father Family Status - Relation Status Age at Mother Father Normal [facility] MAGNESIUMon 02-09-2023 Magnesium [Mass/Vol] 1.7 mg/dL Low 1.9-2.7 [facility] Comment on above: Performed By: #### L [id number] #### [facility] ([facility]) [address] [place] [address] PHOSPHORUSon 02-09-2023 Magnesium [Mass/Vol] 3.7 mg/dL Normal 2.5-5.0 [facility] Comment on above: Performed By: #### L [id number] #### [facility] ([facility]) [address] [place] [address] TACROLIMUS LEVELon Tacrolimus (Bld) [Mass/Vol] 3.3 ng/mL Low 5.0-20.0 [facility] Comment on above: Result Comment: The [employer] Tacrolimus assay is a delayed one-step immunoassay for the quantitative determination of tacrolimus in human whole blood using the chemiluminescent microparticle immunoassay (CMIA) technology with flexible assay protocols, referred to as Chemiflex. Performed By: #### L [id number] #### [facility] ([facility]) [address] [place] [address] TESTOSTERONE, FREE AND TOTAL , AND SHBGon 02-09-2023 SEX HORMONE BINDING GLOBULIN (NMOL/L) IN SER/PLAS 17 nmol/L Normal 11-80 [facility] Comment on above: Performed By: #### L [id number] #### [facility] ([facility]) [address] [place] [address] TESTOSTERONE (NG/DL) IN SER/PLAS 495 ng/dL Normal 220-1000 [facility] Comment on above: Performed By: #### L [id number] #### [facility] ([facility]) [address] [place] [address] TESTOSTERONE FREE (NG/ML) IN SER/PLAS 142.2 pg/mL Normal 47-244 [facility] Comment on above: Result Comment: The concentration of free testosterone is derived from a mathematical expression based on the constant for the binding of testosterone to albumin and/or sex hormone binding globulin. Test Performed by [employer] [address] [place] [id number] - Released 02/09/2023 20:38 Performed By: #### L [id number] #### [facility] ([facility]) [address] [place] [address] URIC ACIDon 02-09-2023 Magnesium [Mass/Vol] 5.1 mg/dL Normal 4.4-7.6 [facility] Comment on above: Performed By: #### L [id number] #### [facility] ([facility]) [address] [place] [address] Reminderson 02-03-2023 Reminders - From: Tamara White MA To: Tamara White MA; Sent: 02/02/2023 10:39:43 EDT Show up: 02/02/2023 10:40:00 EDT Subject: colon recall Reminder Message [address] Cerrato 02/01/13 first recall letter sent [facility] Patient Letter FTon 2022 Patient Letter [facility] (Inserted Image. Lacy ble to display) February 02, 2023 VISHAL Robertson [facility] [place] [address] : 1960 Dear Vishal, This is a reminder that you are due for an appointment with [facility]. Please contact our office at [phone] to schedule your 10 year colon recall Thank you, [facility] 30on 01-25-2023 30 Problem: Neurosensor y [...] of patient condition declining or worsening Normal [facility] 30 Daily Case Managemen t Update [...] PT Recommendations: OT Recommendations: New Consults: Normal [facility] BASIC METABOLIC PANELon 01-15 Anion gap [Moles/Vol] 10 mmol/L Normal 7-20 [facility] Comment on above: Performed By: #### L [id number] #### [facility] ([facility]) [address] [place] [address] Calcium [Mass/Vol] 6.6 mg/dL Low 8.6-10.3 [facility] Comment on above: Performed By: #### L [id number] #### [facility] (AKER) [address] [place] [address] Chloride [Moles/Vol] 116 mmol/L High 98-107 [facility] Comment on above: Performed By: #### L [id number] #### [facility] ([facility]) [address] [place] [address] CO2 [Moles/Vol] 20 mmol/L Low 21-31 [facility] Comment on above: Performed By: #### L [id number] #### [facility] ([facility]) [address] [place] [address] Creatinine [Mass/Vol] 0.92 mg/dL Normal 0.70-1.30 [facility] Comment on above: Performed By: #### L [id number] #### [facility] ([facility]) [address] [place] [address] GLOMERULAR FILTRATION RATE ML/MIN/1.73 SQ M.PREDICTED 94.1 mL/min/1.73m*2 Normal >60.0 [facility] Comment on above: Result Comment: The [facility]???s estimated glomerular filtration rate (eGFR) will [...] individuals. Performed By: #### L [id number] #### [facility] ([facility]) [address] [place] [address] Glucose [Mass/Vol] 113 mg/dL High 70-100 [facility] Comment on above: Performed By: #### L [id number] #### [facility] ([facility]) [address] [place] [address] Potassium [Moles/Vol] 3.3 mmol/L Low 3.5-5.1 [facility] Comment on above: Performed By: #### L [id number] #### [facility] ([facility]) [address] [place] [address] Sodium [Moles/Vol] 143 mmol/L Normal 136-145 [facility] Comment on above: Performed By: #### L [id number] #### [facility] ([facility]) [address] [place] [address] Urea nitrogen [Mass/Vol] 17 mg/dL Normal 7-25 [facility] Comment on above: Performed By: #### L [id number] #### [facility] ([facility]) [address] [place] [address] UREA NITROGEN/CREATININE (MASS RATIO) IN SER/PLAS 18.5 Normal [facility] Comment on above: Performed By: #### L [id number] #### [facility] ([facility]) [address] [place] [address] CBCon 01-25-2023 Erythrocyte distribution width (RBC) [Ratio] 14.8 % Normal 11.5-15.0 [facility] Comment on above: Performed By: #### L [id number] #### [facility] ([facility]) [address] [place] [address] ERYTHROCYTE MEAN CORPUSCULAR HEMOGLOBIN CONCENTRATION (G/DL) BY AUTOMATED 32.2 g/dL Normal 32.0-35.0 [facility] Comment on above: Performed By: #### L [id number] #### [facility] ([facility]) [address] [place] [address] Hematocrit (Bld) [Volume fraction] 42.5 % Normal 39.0-55.0 [facility] Comment on above: Performed By: #### L [id number] #### [facility] ([facility]) [address] [place] [address] Hemoglobin (Bld) [Mass/Vol] 13.7 g/dL Normal 13.0-17.0 [facility] Comment on above: Performed By: #### L [id number] #### [facility] ([facility]) [address] [place] [address] MCH (RBC) [Entitic mass] 29.7 pg Normal 27.0-33.0 [facility] Comment on above: Performed By: #### L [id number] #### [facility] ([facility]) [address] [place] [address] MCV (RBC) [Entitic vol] 92.2 fL Normal 82.0-98.0 [facility] Comment on above: Performed By: #### L [id number] #### [facility] ([facility]) [address] [place] [address] PLATELETS (10*3/UL) IN BLOOD AUTOMATED COUNT 232 10*3/uL Normal 150-400 [facility] Comment on above: Performed By: #### L [id number] #### [facility] ([facility]) [address] [place] [address] RBC (Bld) [#/Vol] 4.61 10*6/uL Normal 4.20-5.70 [facility] Comment on above: Performed By: #### L [id number] #### [facility] ([facility]) [address] [facility] [place] [address] WBC (Bld) [#/Vol] 8.82 10*3/uL Normal 4.00-10.60 [facility] Comment on above: Performed By: #### L [id number] #### [facility] ([facility]) [address] [place] [address] DSon 01-25-2023 DS Admission Admitted 01/24/2023 for [...] Medications These medications were sent to [facility] - [address] [place] [address] [facility] [place] [address], [facility] [address] docusate sodium 100 mg capsule methocarbamol 500 [...] (*) SODIU (more content not included)... Normal [facility] MAGNESIUMon 01-25-2023 Magnesium [Mass/Vol] 1.1 mg/dL Low 1.9-2.7 [facility] Comment on above: Performed By: #### L [id number] #### [facility] ([facility]) [address] [place] [address] NURSNOTEon 01-25-2023 NURSNOTE RN agrees with previ ous nurse assessment. Normal [facility] PHOSPHORUSon 01-25-2023 Magnesium [Mass/Vol] 3.0 mg/dL Normal 2.5-5.0 [facility] Comment on above: Performed By: #### L [id number] #### [facility] ([facility]) [address] [place] [address] POCT GLUCOSE METER UNSOLICIT ED RESULTSon 01-25-2023 Glucose [Mass/Vol] 137 mg/dL High 70-105 [facility] Comment on above: Order Comment: Waive d Testing in the ED is performed under the ED CLIA certificate #[id number]. Result Comment: [email or web address] Performed By: #### L [id number] #### [facility] ([facility]) [address] [place] [address] Glucose [Mass/Vol] 144 mg/dL High 70-105 [facility] Comment on above: Order Comment: Waive d Testing in the ED is performed under the ED CLIA certificate #[id number]. Result Comment: [email or web address] Performed By: #### L [id number] #### [facility] ([facility]) [address] [place] [address] Glucose [Mass/Vol] 116 mg/dL High 70-105 [facility] Comment on above: Order Comment: Waive d Testing in the ED is performed under the ED CLIA certificate #[id number]. Result Comment: [email or web address] Performed By: #### L [id number] #### [facility] ([facility]) [address] [place] [address] Glucose [Mass/Vol] 130 mg/dL High 70-105 [facility] Comment on above: Order Comment: Waive d Testing in the ED is performed under the ED CLIA certificate #[id number]. Result Comment: [email or web address] Performed By: #### L [id number] #### [facility] ([facility]) [address] [place] [address] TACROLIMUS LEVELon 3 Tacrolimus (Bld) [Mass/Vol] 6.6 ng/mL Normal 5.0-20.0 [facility] Comment on above: Result Comment: The [employer] Tacrolimus assay is a delayed one-step immunoassay for the quantitative determination of tacrolimus in human whole blood using the chemiluminescent microparticle immunoassay (CMIA) technology with flexible assay protocols, referred to as Chemiflex. Performed By: #### L [id number] #### [facility] ([facility]) [address] [place] [address] ARTERIAL BLOOD GAS WITH CO-O XIMETRYon 01-24-2023 Base excess Calc (Bld) [Moles/Vol] -4.3000 mmol/L Low -2.0-3.0 [facility] Comment on above: Order Comment: OR GA S Performed By: #### L [id number] ####[facility] [id number] [place] [address] [facility] CARBOXYHEMOGLOBIN/H EMOGLOBIN TOTAL % IN BLOOD 1.0 % Normal 0.0-3.0 [facility] Comment on above: Order Comment: OR GA S Performed By: #### L [id number] ####[facility] [id number] [place] [address] [facility] CO2 (Bld) [Partial pressure] 35 mm[Hg] Normal 35-48 [facility] Comment on above: Order Comment: OR GA S Performed By: #### L [id number] ####[facility] [id number] [place] [address] [facility] DEOXYGENATED HEMOGLOBIN IN BLOOD 1.9 % Normal 1-5 [facility] Comment on above: Order Comment: OR GA S Performed By: #### L [id number] ####[facility] [id number] [place] [address] [place] HCO3 (Bld) [Moles/Vol] 20.2 mmol/L Low 21.0-28.0 [facility] Comment on above: Order Comment: OR GA S Performed By: #### L [id number] ####[facility] [id number] [place] [address] [place] Hemoglobin (Bld) [Mass/Vol] 14.9 g/dL Normal 11.7-17.4 [facility] Comment on above: Order Comment: OR GA S Performed By: #### L [id number] ####[facility] [id number] [place] [address] [place] METHEMOGLOBIN/100 IN BLOOD 0.5 % Normal 0.0-1.5 [facility] Comment on above: Order Comment: OR GA S Performed By: #### L [id number] ####[facility] [id number] [place] [address] [facility] Oxygen (Bld) [Partial pressure] 104 mm[Hg] High 83-100 [facility] Comment on above: Order Comment: OR GA S Performed By: #### L [id number] ####[facility] [id number] [place] [address] [facility] OXYGEN SATURATION (%) IN ARTERIAL BLOOD 98.1 % High 94.0-98.0 [facility] Comment on above: Order Comment: OR GA S Performed By: #### L [id number] ####[facility] [id number] [place] [address] [facility] OXYGENATED HEMOGLOBIN IN BLOOD 96.6 % High 90.0-95.0 [facility] Comment on above: Order Comment: OR GA S Performed By: #### L [id number] ####[facility] [id number] [place] [address] [facility] pH (Bld) 7.37 [pH] Normal 7.35-7.45 [facility] Comment on above: Order Comment: OR GA S Performed By: #### L [id number] ####[facility] [id number] [place] [address] [facility] SOURCE OF OXYGEN Vent Normal [facility] Comment on above: Order Comment: OR GA S Performed By: #### L [id number] ####[facility] [id number] [place] [address] [facility] Base excess Calc (Bld) [Moles/Vol] -4.0000 mmol/L Low -2.0-3.0 [facility] Comment on above: Performed By: #### L [id number] ####[facility] [id number] [place] [address] [facility] CARBOXYHEMOGLOBIN/H EMOGLOBIN TOTAL % IN BLOOD 0.8 % Normal 0.0-3.0 [facility] Comment on above: Performed By: #### L [id number] ####[facility] [id number] [place] [address] [place] CO2 (Bld) [Partial pressure] 46 mm[Hg] Normal 35-48 [facility] Comment on above: Performed By: #### L [id number] ####[facility] [id number] [place] [address] [place] DEOXYGENATED HEMOGLOBIN IN BLOOD 1.3 % Normal 1-5 [facility] Comment on above: Performed By: #### L [id number] ####[facility] [id number] [place] [address] [place] HCO3 (Bld) [Moles/Vol] 22.6 mmol/L Normal 21.0-28.0 [facility] Comment on above: Performed By: #### L [id number] ####[facility] [id number] [place] [address] [place] Hemoglobin (Bld) [Mass/Vol] 15.0 g/dL Normal 11.7-17.4 [facility] Comment on above: Performed By: #### L [id number] ####[facility] [id number] [place] [address] [place] METHEMOGLOBIN/100 IN BLOOD 0.5 % Normal 0.0-1.5 [facility] Comment on above: Performed By: #### L [id number] ####[facility] [id number] [place] [address] [place] Oxygen (Bld) [Partial pressure] 137 mm[Hg] High 83-100 [facility] Comment on above: Performed By: #### L [id number] ####[facility] [id number] [place] [address] [place] OXYGEN SATURATION (%) IN ARTERIAL BLOOD 98.7 % High 94.0-98.0 [facility] Comment on above: Performed By: #### L [id number] ####[facility] [id number] [place] [address] [place] OXYGENATED HEMOGLOBIN IN BLOOD 97.4 % High 90.0-95.0 [facility] Comment on above: Performed By: #### L [id number] ####[facility] [id number] [place] [address] [place] pH (Bld) 7.30 [pH] Low 7.35-7.45 [facility] Comment on above: Performed By: #### L [id number] ####[facility] [id number] [place] [address] [place] SOURCE OF OXYGEN Vent Normal [facility] Comment on above: Performed By: #### L [id number] ####[facility] [id number] [place] [address] [facility] BASIC METABOLIC PANELon 10- Anion gap [Moles/Vol] 14 mmol/L Normal 7-20 [facility] Comment on above: Performed By: #### L [id number] #### [facility] (BEAKER) [address] [place] [address] Calcium [Mass/Vol] 8.5 mg/dL Low 8.6-10.3 [facility] Comment on above: Performed By: #### L [id number] #### [facility] ([facility]AKER) [address] [place] [address] Chloride [Moles/Vol] 113 mmol/L High 98-107 [facility] Comment on above: Performed By: #### L [id number] #### [facility] (BEAKER) [address] [place] [address] CO2 [Moles/Vol] 20 mmol/L Low 21-31 [facility] Comment on above: Performed By: #### L [id number] #### [facility] ([facility]AKER) [address] [place] [address] Creatinine [Mass/Vol] 1.12 mg/dL Normal 0.70-1.30 [facility] Comment on above: Performed By: #### L [id number] #### [facility] ([facility]AKER) [address] [place] [address] GLOMERULAR FILTRATION RATE ML/MIN/1.73 SQ M.PREDICTED 74.3 mL/min/1.73m*2 Normal >60.0 [facility] Comment on above: Result Comment: [facility]???s estimated glomerular filtration rate (eGFR) will [...] individuals. Performed By: #### L [id number] #### [facility] ([facility]) [address] [place] [address] Glucose [Mass/Vol] 148 mg/dL High 70-100 [facility] Comment on above: Performed By: #### L [id number] #### [facility] ([facility]) [address] [place] [address] Potassium [Moles/Vol] 4.6 mmol/L Normal 3.5-5.1 [facility] Comment on above: Performed By: #### L [id number] #### [facility] ([facility]) [address] [place] [address] Sodium [Moles/Vol] 142 mmol/L Normal 136-145 [facility] Comment on above: Performed By: #### L [id number] #### [facility] ([facility]) [address] [place] [address] Urea nitrogen [Mass/Vol] 20 mg/dL Normal 7-25 [facility] Comment on above: Performed By: #### L [id number] #### [facility] ([facility]) [address] [place] [address] UREA NITROGEN/CREATININE (MASS RATIO) IN SER/PLAS 17.9 Normal [facility] Comment on above: Performed By: #### L [id number] #### [facility] ([facility]) [address] [place] [address] CALCIUM, IONIZEDon CALCIUM IONIZED (MMOL/L) IN BLOOD 1.18 mmol/L Normal 1.15-1.33 [facility] Comment on above: Performed By: #### C ALCIUM, IONIZED ####[facility] [id number] [place], [place] [address] CALCIUM IONIZED (MMOL/L) IN BLOOD 1.12 mmol/L Low 1.15-1.33 [facility] Comment on above: Performed By: #### C ALCIUM, IONIZED ####[facility] [id number] [place] [address] [facility] CBCon 01-24-2023 Erythrocyte distribution width (RBC) [Ratio] 14.5 % Normal 11.5-15.0 [facility] Comment on above: Performed By: #### L [id number] #### [facility] ([facility]) [address] [place] [address] ERYTHROCYTE MEAN CORPUSCULAR HEMOGLOBIN CONCENTRATION (G/DL) BY AUTOMATED 33.7 g/dL Normal 32.0-35.0 [facility] Comment on above: Performed By: #### L [id number] #### [facility] ([facility]) [address] [place] [address] Hematocrit (Bld) [Volume fraction] 44.2 % Normal 39.0-55.0 [facility] Comment on above: Performed By: #### L [id number] #### [facility] (BEAKER) [address] [place] [address] Hemoglobin (Bld) [Mass/Vol] 14.9 g/dL Normal 13.0-17.0 [facility] Comment on above: Performed By: #### L [id number] #### [facility] (BEAKER) [address] [place] [address] MCH (RBC) [Entitic mass] 30.5 pg Normal 27.0-33.0 [facility] Comment on above: Performed By: #### L [id number] #### [facility] (BEAKER) [address] [place] [address] MCV (RBC) [Entitic vol] 90.4 fL Normal 82.0-98.0 [facility] Comment on above: Performed By: #### L [id number] #### [facility] ([facility]) [address] [place] [address] PLATELETS (10*3/UL) IN BLOOD AUTOMATED COUNT 230 10*3/uL Normal 150-400 [facility] Comment on above: Performed By: #### L [id number] #### [facility] ([facility]) [address] [place] [address] RBC (Bld) [#/Vol] 4.89 10*6/uL Normal 4.20-5.70 [facility] Comment on above: Performed By: #### L [id number] #### [facility] ([facility]) [address] [place] [address] WBC (Bld) [#/Vol] 11.18 10*3/uL High 4.00-10.60 [facility] Comment on above: Performed By: #### L [id number] #### [facility] ([facility]) [address] [place] [address] HISTOLOGY - TISSUE EXAMon LAB AP CASE REPORT Normal [facility] Comment on above: Order Comment: Pre-o p diagnosis:PKD (polycystic kidney disease) [Q61.3] Result Comment: Surg ical Pathology Case: [id number] Authorizing Provider: Bobby Maldonado MD Collected: 01/24/2023 1630 Ordering Location: [facility] Main Operating Room Received: 01/24/2023 1721 Pathologist: Vaishnavi Magallon MD Specimens: A) - Kidney, RIGHT KIDNEY B) - Kidney, LEFT KIDNEY Performed By: #### L [id number] ####[facility] ([facility])[address] [place] [address] LAB AP CLINICAL INFORMATION Normal [facility] Comment on above: Order Comment: Pre-o p diagnosis:PKD (polycystic kidney disease) [Q61.3] Result Comment: Post -Op Diagnoses Q61.3 - PKD (polycystic kidney disease) [ICD-10-CM] Performed By: #### L [id number] ####[facility] (BEAKER)[address] [place] [address] LAB AP GROSS DESCRIPTION A. Kidney. Normal [facility] Comment on above: Order Comment: Pre-o [...] are identified in the perinephric adipose tissue. Ramp Supervisor sections are submitted as follows: A1 Vascular and ureter margin, en face A2 Superior pole A3 Mid kidney A4 Inferior pole Rubens Cornejo, Pathologists' Manager Trust Student Hussein Lemus, Pathologists' Manager Trust B. Kidney. Part B is received in [...] are identified in the perinephric adipose tissue. Ramp Supervisor sections are submitted as follows: A1 Vascular and ureter margin, en face A2 Superior pole A3 Mid kidney A4 Inferior pole B5 Largest cyst with clot B6 Possible adrenal glands Rubens Cornejo, Pathologists' Manager [employer] Student Hussein Lemus, Pathologists' Manager Trust Performed By: #### L [id number] ####[facility] ([facility])[address] [place] [address] LAB AP MICROSCOPIC DESCRIPTION Microscopic examination performed. [facility] Comment on above: Order Comment: Pre-o p diagnosis:PKD (polycystic kidney disease) [Q61.3] Performed By: #### L [id number] ####[facility] ([facility])[address] [place] [address] LAB AP REPORT FINAL DIAGNOSIS NARRATIVE [facility] Comment on above: Order Comment: Pre-o p diagnosis:PKD (polycystic kidney disease) [Q61.3] Result Comment: A. K idney, right, nephrectomy: - Polycystic kidney disease B. Kidney, left, nephrectomy: - Polycystic kidney disease - No significant pathologic findings in adrenal tissue Performed By: #### L [id number] ####[facility] (BEAKER)[address] [place] [address] HPon 01-24-2023 Dr. Lila Campos , Dr. Giovana [...] The ad (more content not included)... Normal [facility] MAGNESIUMon 01-24-2023 Magnesium [Mass/Vol] 1.3 mg/dL Low 1.9-2.7 [facility] Comment on above: Performed By: #### L [id number] #### [facility] (BEAKER) [address] [place] [address] OPNOTEon 01-24-2023 OPNOTE NEPHRECTOMY, ROBOT-ASSISTED (B) Operative Note Date: 01/24/2023 Location: [facility] OR Name: Vishal Duke, : 1960, Diagnosis Pre-op Diagnosis * PKD (polycystic kidney disease) [Q61.3] Post-op Diagnosis * PKD (polycystic kidney disease) [Q61.3] Procedures ROBOTIC ASSISTED BILATERAL NEPHRECTOMY Surgeons * Bobby Maldonado - Primary RESIDENT Amelia Olson MD [facility] Urology PGY4 Procedure Summary Anesthesia: General [...] - TISSUE EXAM Bobby Maldonado MD 01/24/23 1292 No Routine [id number] Description: RIGHT KIDNEY B Kidney Tissue HISTOLOGY - TISSUE EXAM Bobby Maldonado MD 01/24/23 1630 No Routine [id number] Description: LEFT KIDNEY Staff: Industrial Painter: Nany Rios; Shelby Sal RN Relief Industrial Painter: Pura Dimas RN; Jos Pete RN Relief Scrub: Fadi León CST Scrub Person: Nathalie Quintero, ELAINE; Myah Melendrez Senior Oracle Adf Developer: Jovanna Niño RN; Joyce Caraballo RN; Chichi Gutierrez CSA Orientee Scrub: Niya Adler CST Indications: Vishal Duke is an 62 y.o. male who is having End-stage renal disease secondary to Polycystic Kidneys who underwent donor kidney transplant on 08/15/2017. Patient was still having abdominal pain 2/2 to [facility] [place] [facility]. Procedure Details: The patient was seen [...] one 12mm robotic port and a 5mm library technical assistant port in alinear fashion. An additional [...] for 12 robotic port and 5 mm library technical assistant port were all closed with 4-0 [...] the colon (more content not included)... Normal [facility] PHOSPHORUSon 01-24-2023 Magnesium [Mass/Vol] 4.9 mg/dL Normal 2.5-5.0 [facility] Comment on above: Performed By: #### L [id number] ####[facility] ([facility])[address] [place] [address] POCT PERFUSION PANEL UNSOLIC ITED RESULTSon 01-24-2023 CO2 [Moles/Vol] 22.0 mmol/L Normal 21.0-29.0 [facility] Comment on above: Performed By: #### L [id number] #### [facility] ([facility]) [address] [place] [address] Glucose [Mass/Vol] 165 mg/dL High 70-105 [facility] Comment on above: Performed By: #### L [id number] #### [facility] ([facility]) [address] [place] [address] HCO3 (Bld) [Moles/Vol] 21.0 mmol/L Low 23.0-28.0 [facility] Comment on above: Performed By: #### L [id number] #### [facility] (BEAKER) [address] [place] [address] Hematocrit (Bld) [Volume fraction] 41 % Normal 38-51 [facility] Comment on above: Performed By: #### L [id number] #### [facility] ([facility]) [address] [place] [address] Hemoglobin (Bld) [Mass/Vol] 13.9 g/dL Normal 12.0-17.0 [facility] Comment on above: Performed By: #### L [id number] #### [facility] ([facility]) [address] [place] [address] POCT BASE EXCESS -6.0 mmol/L Low -2.0-3.0 [facility] Comment on above: Performed By: #### L [id number] #### [facility] ([facility]) [address] [place] [address] POCT IONIZED CALCIUM 1.58 mmol/L Critically high 1.12-1.32 [facility] Comment on above: Performed By: #### L [id number] #### [facility] ([facility]) [address] [place] [address] POCT PCO2 46.9 mmHg Normal 41.0-51.0 [facility] Comment on above: Performed By: #### L [id number] #### [facility] ([facility]) [address] [place] [address] POCT PH 7.26 Low 7.31-7.41 [facility] Comment on above: Performed By: #### L [id number] #### [facility] ([facility]) [address] [place] [address] POCT PO2 124 mmHg High 80-105 [facility] Comment on above: Performed By: #### L [id number] #### [facility] ([facility]) [address] [place] [address] POCT SO2 98 % Normal 95-98 [facility] Comment on above: Performed By: #### L [id number] #### [facility] ([facility]) [address] [place] [address] Potassium [Moles/Vol] 4.2 mmol/L Normal 3.5-4.9 [facility] Comment on above: Performed By: #### L [id number] #### [facility] ([facility]) [address] [place] [address] Sodium [Moles/Vol] 140 mmol/L Normal 138.0-146.0 [facility] Comment on above: Performed By: #### L [id number] #### [facility] ([facility]) [address] [place] [address] Glucose [Mass/Vol] 118 mg/dL High 70-105 [facility] Comment on above: Performed By: #### L [id number] ####[facility] ([facility])[address] [place] [address] POCT BASE EXCESS Normal [facility] Comment on above: Performed By: #### L [id number] ####[facility] ([facility])[address] [place] [address] POCT HCO3 Normal [facility] Comment on above: Performed By: #### L [id number] ####[facility] ([facility])[address] [place] [address] POCT HEMATOCRIT Normal [facility] Comment on above: Performed By: #### L [id number] ####[facility] ([facility])[address] [place] [address] POCT HEMOGLOBIN Normal [facility] Comment on above: Performed By: #### L [id number] ####[facility] ([facility])[address] [place] [address] POCT IONIZED CALCIUM Normal [facility] Comment on above: Performed By: #### L [id number] ####[facility] ([facility]AKER)[address] [place] [address] POCT PCO2 Normal [facility] Comment on above: Performed By: #### L [id number] ####[facility] ([facility]AKER)[address] [place] [address] POCT PH Normal [facility] Comment on above: Performed By: #### L [id number] ####[facility] ([facility]ER)[address] [place] [address] POCT PO2 Normal [facility] Comment on above: Performed By: #### L [id number] ####[facility] (BEAK[facility])[address] [place] [address] POCT SO2 Normal [facility] Comment on above: Performed By: #### L [id number] ####[facility] ([facility]AK[facility])[address] [place] [address] POCT SODIUM Normal [facility] Comment on above: Performed By: #### L [id number] ####[facility] ([facility])[address] [place] [address] POCT TOTAL CO2 Normal [facility] Comment on above: Performed By: #### L [id number] ####[facility] ([facility])[address] [place] [address] Potassium [Moles/Vol] 3.9 mmol/L Normal 3.5-4.9 [facility] Comment on above: Performed By: #### L [id number] ####[facility] ([facility])[address] [place] [address] POTASSIUM, WHOLE BLOODon Potassium [Moles/Vol] 4.3 mmol/L Normal 3.5-5.1 [facility] Comment on above: Performed By: #### P OTASSIUM, WHOLE BLOOD ####[facility] [id number] [place] [address] [place] Potassium [Moles/Vol] 4.1 mmol/L Normal 3.5-5.1 [facility] Comment on above: Performed By: #### L [id number] #### [facility] ([facility]ER) [address] [place] [address] SODIUM, WHOLE BLOODon 2022 SODIUM, WHOLE BLOOD 136 Normal 136-145 [facility] Comment on above: Performed By: #### L [id number] #### [facility] ([facility]) [address] [place] [address] SODIUM, WHOLE BLOOD 135 Low 136-145 [facility] Comment on above: Performed By: #### S ODIUM, WHOLE BLOOD ####[facility] [id number] [place] [address] [place] Orders Onlyon 01-20-2023 Orders Only [id number] Vishal Duke 1960 M Date Provider Department Center 01/20/2023 AMY BRODY [facility] Family History Problem Relation Age of Onset Alzheimer's disease Mother Coronary artery disease Father Family Status - Relation Status Age at Mother Father Normal [facility] [id number] 01-12-2023 [id number] MEDICATIONS TO TAKE DAY OF SURGERY WITH SIP OF WATER USE ALBUTEROL INHALER TAKE NEXIUM ISOSORBIDE MYFORTIC TACROLIMUS METOPROLOL HOLD PLAVIX X 5 DAYS STOP 01/19/23 PT WILL COMPLETE EKG AT [facility] ON 01/13 IF YOU ARE GOING HOME AFTER YOUR SURGERY OR PROCEDURE, FOR YOUR SAFETY, YOUR SURGERY WILL BE CANCELLED IF BOTH OF THE FOLLOWING ARE NOT AVAILABLE: An adult milk driver over the age of 18, that [...] lenses. Do not wear perfume, make-up, nail beninese, or lotions on the day of your [...] need to make any changes, please call [phone]. Notify your surgeon if you develop any illness such as a cold, cough, fever, sore throat or vomiting between now and your surgery. Thank you for entrusting us with your care. [facility] Surgical Services Team Normal [facility] Orders Onlyon 01-12-2023 Orders Only [id number] Vishal Duke 1960 Date Provider Department Center 01/12/2023 AMY BRODY [facility] Medical C Family History Problem Relation Age of Onset Alzheimer's disease Mother Coronary artery disease Father Family Status - Relation Status Age at Mother Father Normal [facility] APTTon 01-06-2023 ACTIVATED PARTIAL THROMBOPLASTIN TIME IN PPP BY COAGULATION ASSAY 27.0 Seconds Normal 25.0-35.0 [facility] Comment on above: Result Comment: Clin ical significance of the APTT is questionable in the presence of heparin. Performed By: #### L [id number] #### [facility] ([facility]ER) [address] [place] [address] CBC WITH AUTO DIFFERENTIALon 09-22-2023 Basophils (Bld) [#/Vol] 0.07 10*3/uL Normal 0.00-0.20 [facility] Comment on above: Performed By: #### L [id number] ####[facility] (BEAKER)[address] [place] [address] Basophils/100 WBC (Bld) 1.0 % Normal 0.0-1.0 [facility] Comment on above: Performed By: #### L [id number] ####[facility] (BEAKER)[address] [place] [address] Eosinophils (Bld) [#/Vol] 0.12 10*3/uL Normal 0.00-0.50 [facility] Comment on above: Performed By: #### L [id number] ####[facility] (BEAKER)[address] [place] [address] Eosinophils/100 WBC (Bld) 1.8 % Normal 0.0-6.0 [facility] Comment on above: Performed By: #### L [id number] ####[facility] (BEAKER)[address] [place] [address] Erythrocyte distribution width (RBC) [Ratio] 14.5 % Normal 11.5-15.0 [facility] Comment on above: Performed By: #### L [id number] ####[facility] (BEAKER)[address] [place] [address] ERYTHROCYTE MEAN CORPUSCULAR HEMOGLOBIN CONCENTRATION (G/DL) BY AUTOMATED 32.3 g/dL Normal 32.0-35.0 [facility] Comment on above: Performed By: #### L [id number] ####[facility] (BEAKER)[address] [place] [address] Hematocrit (Bld) [Volume fraction] 50.8 % Normal 39.0-55.0 [facility] Comment on above: Performed By: #### L [id number] ####[facility] (BEAKER)[address] [place] [address] Hemoglobin (Bld) [Mass/Vol] 16.4 g/dL Normal 13.0-17.0 [facility] Comment on above: Performed By: #### L [id number] ####[facility] ([facility])[address] [place] [address] Immature granulocytes (Bld) [#/Vol] 0.03 10*3/uL Normal 0.00-0.20 [facility] Comment on above: Performed By: #### L [id number] ####[facility] ([facility])[address] [place] [address] Immature granulocytes/100 WBC (Bld) 0.4 % Normal 0.0-1.0 [facility] Comment on above: Performed By: #### L [id number] ####[facility] ([facility])[address] [place] [address] Lymphocytes (Bld) [#/Vol] 1.05 10*3/uL Low 1.20-4.00 [facility] Comment on above: Performed By: #### L [id number] ####[facility] ([facility])[address] [place] [address] Lymphocytes/100 WBC (Bld) 15.5 % Low 20.0-45.0 [facility] Comment on above: Performed By: #### L [id number] ####[facility] ([facility])[address] [place] [address] MCH (RBC) [Entitic mass] 29.4 pg Normal 27.0-33.0 [facility] Comment on above: Performed By: #### L [id number] ####[facility] (BEAKER)[address] [place] [address] MCV (RBC) [Entitic vol] 91.2 fL Normal 82.0-98.0 [facility] Comment on above: Performed By: #### L [id number] ####[facility] (BEAKER)[address] [place] [address] Monocytes (Bld) [#/Vol] 0.73 10*3/uL Normal 0.10-1.00 [facility] Comment on above: Performed By: #### L [id number] ####[facility] ([facility])[address] [place] [address] Monocytes/100 WBC (Bld) 10.8 % Normal 5.0-12.0 [facility] Comment on above: Performed By: #### L [id number] ####[facility] ([facility])[address] [place] [address] Neutrophils (Bld) [#/Vol] 4.76 10*3/uL Normal 1.60-7.60 [facility] Comment on above: Performed By: #### L [id number] ####[facility] ([facility])[address] [place] [address] Neutrophils/100 WBC (Bld) 70.5 % Normal 40.0-72.0 [facility] Comment on above: Performed By: #### L [id number] ####[facility] ([facility])[address] [place] [address] NRBC (PER 100 WBCS) BY AUTOMATED COUNT 0.0 % Normal 0 [facility] Comment on above: Performed By: #### L [id number] ####[facility] ([facility])[address] [place] [address] PLATELETS (10*3/UL) IN BLOOD AUTOMATED COUNT 230 10*3/uL Normal 150-400 [facility] Comment on above: Performed By: #### L [id number] ####[facility] ([facility])[address] [place] [address] RBC (Bld) [#/Vol] 5.57 10*6/uL Normal 4.20-5.70 [facility] Comment on above: Performed By: #### L [id number] ####[facility] ([facility])[address] [place] [address] WBC (Bld) [#/Vol] 6.76 10*3/uL Normal 4.00-10.60 [facility] Comment on above: Performed By: #### L [id number] ####[facility] ([facility]AKER)[address] [place] [address] COMPREHENSIVE METABOLIC PANE Nitin 01-06-2023 Albumin [Mass/Vol] 4.7 g/dL Normal 3.5-5.7 [facility] Comment on above: Performed By: #### L [id number] ####[facility] (BEAKER)[address] [place] [address] ALP [Catalytic activity/Vol] 82 U/L Normal 34-104 [facility] Comment on above: Performed By: #### L [id number] ####[facility] (BEAKER)[address] [place] [address] ALT [Catalytic activity/Vol] 22 U/L Normal 7-52 [facility] Comment on above: Performed By: #### L [id number] ####[facility] (BEAKER)[address] [place] [address] Anion gap [Moles/Vol] 10 mmol/L Normal 7-20 [facility] Comment on above: Performed By: #### L [id number] ####[facility] (BEAKER)[address] [place] [address] AST [Catalytic activity/Vol] 18 U/L Normal 13-39 [facility] Comment on above: Performed By: #### L [id number] ####[facility] (BEAKER)[address] [place] [address] Bilirubin [Mass/Vol] 0.9 mg/dL Normal 0.3-1.0 [facility] Comment on above: Performed By: #### L [id number] ####[facility] (BEAKER)[address] [place] [address] Calcium [Mass/Vol] 9.6 mg/dL Normal 8.6-10.3 [facility] Comment on above: Performed By: #### L [id number] ####[facility] (BEAKER)[address] [place] [address] Chloride [Moles/Vol] 105 mmol/L Normal 98-107 [facility] Comment on above: Performed By: #### L [id number] ####[facility] (BEAKER)[address] [place] [address] CO2 [Moles/Vol] 28 mmol/L Normal 21-31 [facility] Comment on above: Performed By: #### L [id number] ####[facility] (BEAKER)[address] [place] [address] Creatinine [Mass/Vol] 1.27 mg/dL Normal 0.70-1.30 [facility] Comment on above: Performed By: #### L [id number] ####[facility] (BEAKER)[address] [place] [address] GLOMERULAR FILTRATION RATE ML/MIN/1.73 SQ M.PREDICTED 63.9 mL/min/1.73m*2 Normal >60.0 [facility] Comment on above: Result Comment: The [facility]???s estimated glomerular filtration rate (eGFR) will [...] of individuals. Performed By: #### L [id number] ####[facility] (BEAKER)[address] [place] [address] Glucose [Mass/Vol] 117 mg/dL High 70-100 [facility] Comment on above: Performed By: #### L [id number] ####[facility] (BEAKER)[address] [place] [address] Potassium [Moles/Vol] 4.4 mmol/L Normal 3.5-5.1 [facility] Comment on above: Performed By: #### L [id number] ####[facility] (BEAKER)[address] [place] [address] Protein [Mass/Vol] 6.8 g/dL Normal 6.0-8.3 [facility] Comment on above: Performed By: #### L [id number] ####[facility] (BENAYA)[address] [place] [address] Sodium [Moles/Vol] 139 mmol/L Normal 136-145 [facility] Comment on above: Performed By: #### L [id number] ####[facility] ([facility])[address] [place] [address] Urea nitrogen [Mass/Vol] 20 mg/dL Normal 7-25 [facility] Comment on above: Performed By: #### L [id number] ####[facility] ([facility])[address] [place] [address] UREA NITROGEN/CREATININE (MASS RATIO) IN SER/PLAS 15.7 Normal [facility] Comment on above: Performed By: #### L [id number] ####[facility] ([place])[address] [place] [address] CT ABDOMEN PELVIS WO IV CONT [facility] 01-06-2023 CT ABDOMEN PELVIS WO IV CONTRAST [...] appear stable. The adrenal glands appear stable. Unga kidneys are diffusely replaced by cystic change. [...] reasonably achievable. Electronically signed: Dona Escobar. Normal [facility] Labon 01-06-2023 Lab [id number] Vishal Duke 1960 M Date Provider Department [place] 01/06/2023 224-[facility]PD LAB RESOURCE [facility] OPD [facility] Family History Problem Relation Age of Onset Alzheimer's disease Mother Coronary artery disease Father Family Status - Relation Status Age at Mother Father Normal [facility] PROTIME-INRon 01-06-2023 INR IN PPP BY COAGULATION ASSAY 1.07 Normal 0.90-1.10 [facility] Comment on above: Result Comment: ACCC [...] CHEST 1995;[id number]. Performed By: #### L [id number] ####[facility] (BEAKER)[address] [place] [address] PROTHROMBIN TIME (PT) IN PPP BY COAGULATION ASSAY 13.9 Seconds Normal 12.3-14.8 [facility] Comment on above: Performed By: #### L [id number] ####[facility] (BEAKER)[address] [place] [address] TYPE AND SCREENon 01-06-2023 AB SCREEN Negative Normal [facility] Comment on above: Performed By: #### L [id number] #### [facility] ([facility]) [address] [place] [address] ABO group Nom (Bld) A Normal [facility] Comment on above: Performed By: #### L [id number] #### [facility] ([facility]) [address] [place] [address] RH TYPE IN BLOOD Positive Normal [facility] Comment on above: Performed By: #### L [id number] #### [facility] ([facility]) [place] [address] BILIRUBIN, DIRECTon 12-23-19 Magnesium [Mass/Vol] 0.2 mg/dL Normal 0-0.2 [facility] Comment on above: Performed By: #### L [id number] #### [facility] ([facility]) [address] [place] [address] CBC WITH AUTO DIFFERENTIALon 12-22-2022 Basophils (Bld) [#/Vol] 0.04 10*3/uL Normal 0.00-0.20 [facility] Comment on above: Performed By: #### L [id number] #### [facility] ([facility]) [address] [place] [address] Basophils/100 WBC (Bld) 0.5 % Normal 0.0-1.0 [facility] Comment on above: Performed By: #### L [id number] #### [facility] ([facility]) [address] [place] [address] Eosinophils (Bld) [#/Vol] 0.12 10*3/uL Normal 0.00-0.50 [facility] Comment on above: Performed By: #### L [id number] #### [facility] (BEAKER) [address] [place] [address] Eosinophils/100 WBC (Bld) 1.6 % Normal 0.0-6.0 [facility] Comment on above: Performed By: #### L [id number] #### [facility] ([facility]) [address] [place] [address] Erythrocyte distribution width (RBC) [Ratio] 14.6 % Normal 11.5-15.0 [facility] Comment on above: Performed By: #### L [id number] #### [facility] ([facility]) [address] [place] [address] ERYTHROCYTE MEAN CORPUSCULAR HEMOGLOBIN CONCENTRATION (G/DL) BY AUTOMATED 32.5 g/dL Normal 32.0-35.0 [facility] Comment on above: Performed By: #### L [id number] #### [facility] ([facility]) [address] [place] [address] Hematocrit (Bld) [Volume fraction] 50.1 % Normal 39.0-55.0 [facility] Comment on above: Performed By: #### L [id number] #### [facility] ([facility]) [address] [place] [address] Hemoglobin (Bld) [Mass/Vol] 16.3 g/dL Normal 13.0-17.0 [facility] Comment on above: Performed By: #### L [id number] #### [facility] ([facility]) [address] [place] [address] Immature granulocytes (Bld) [#/Vol] 0.05 10*3/uL Normal 0.00-0.20 [facility] Comment on above: Performed By: #### L [id number] #### [facility] ([facility]) [address] [place] [address] Immature granulocytes/100 WBC (Bld) 0.7 % Normal 0.0-1.0 [facility] Comment on above: Performed By: #### L [id number] #### [facility] ([facility]) [address] [place] [address] Lymphocytes (Bld) [#/Vol] 1.03 10*3/uL Low 1.20-4.00 [facility] Comment on above: Performed By: #### L [id number] #### [facility] (BEAKER) [address] [place] [address] Lymphocytes/100 WBC (Bld) 13.4 % Low 20.0-45.0 [facility] Comment on above: Performed By: #### L [id number] #### [facility] (BEAKER) [address] [place] [address] MCH (RBC) [Entitic mass] 29.9 pg Normal 27.0-33.0 [facility] Comment on above: Performed By: #### L [id number] #### [facility] (BEAKER) [address] [place] [address] MCV (RBC) [Entitic vol] 91.8 fL Normal 82.0-98.0 [facility] Comment on above: Performed By: #### L [id number] #### [facility] (BEAKER) [address] [place] [address] Monocytes (Bld) [#/Vol] 0.73 10*3/uL Normal 0.10-1.00 [facility] Comment on above: Performed By: #### L [id number] #### [facility] (BEAKER) [address] [place] [address] Monocytes/100 WBC (Bld) 9.5 % Normal 5.0-12.0 [facility] Comment on above: Performed By: #### L [id number] #### [facility] (BEAKER) [address] [place] [address] Neutrophils (Bld) [#/Vol] 5.69 10*3/uL Normal 1.60-7.60 [facility] Comment on above: Performed By: #### L [id number] #### [facility] (BEAKER) [address] [place] [address] Neutrophils/100 WBC (Bld) 74.3 % High 40.0-72.0 [facility] Comment on above: Performed By: #### L [id number] #### [facility] (BEAKER) [address] [place] [address] NRBC (PER 100 WBCS) BY AUTOMATED COUNT 0.0 % Normal 0 [facility] Comment on above: Performed By: #### L [id number] #### [facility] ([facility]) [address] [place] [address] PLATELETS (10*3/UL) IN BLOOD AUTOMATED COUNT 247 10*3/uL Normal 150-400 [facility] Comment on above: Performed By: #### L [id number] #### [facility] ([facility]) [address] [place] [address] RBC (Bld) [#/Vol] 5.46 10*6/uL Normal 4.20-5.70 [facility] Comment on above: Performed By: #### L [id number] #### [facility] ([facility]) [address] [place] [address] WBC (Bld) [#/Vol] 7.66 10*3/uL Normal 4.00-10.60 [facility] Comment on above: Performed By: #### L [id number] #### [facility] ([facility]) [address] [place] [address] COMPREHENSIVE METABOLIC PANE Nitin 12-22-2022 Albumin [Mass/Vol] 4.6 g/dL Normal 3.5-5.7 [facility] Comment on above: Performed By: #### L [id number] #### [facility] ([facility]) [address] [place] [address] ALP [Catalytic activity/Vol] 88 U/L Normal 34-104 [facility] Comment on above: Performed By: #### L [id number] #### [facility] ([facility]) [address] [place] [address] ALT [Catalytic activity/Vol] 24 U/L Normal 7-52 [facility] Comment on above: Performed By: #### L [id number] #### [facility] ([facility]) [address] [place] [address] Anion gap [Moles/Vol] 12 mmol/L Normal 7-20 [facility] Comment on above: Performed By: #### L [id number] #### [facility] ([facility]) [address] [place] [address] AST [Catalytic activity/Vol] 19 U/L Normal 13-39 [facility] Comment on above: Performed By: #### L [id number] #### [facility] ([facility]) [address] [place] [address] Bilirubin [Mass/Vol] 0.7 mg/dL Normal 0.3-1.0 [facility] Comment on above: Performed By: #### L [id number] #### [facility] ([facility]) [address] [place] [address] Calcium [Mass/Vol] 9.2 mg/dL Normal 8.6-10.3 [facility] Comment on above: Performed By: #### L [id number] #### [facility] ([facility]) [address] [place] [address] Chloride [Moles/Vol] 105 mmol/L Normal 98-107 [facility] Comment on above: Performed By: #### L [id number] #### [facility] ([facility]) [address] [place] [address] CO2 [Moles/Vol] 27 mmol/L Normal 21-31 [facility] Comment on above: Performed By: #### L [id number] #### [facility] ([facility]) [address] [place] [address] Creatinine [Mass/Vol] 1.27 mg/dL Normal 0.70-1.30 [facility] Comment on above: Performed By: #### L [id number] #### [facility] ([facility]) [address] [place] [address] GLOMERULAR FILTRATION RATE ML/MIN/1.73 SQ M.PREDICTED 64.3 mL/min/1.73m*2 Normal >60.0 [facility] Comment on above: Result Comment: The [facility]???s estimated glomerular filtration rate (eGFR) will [...] group of individuals. Performed By: #### L [id number] #### [facility] ([facility]) [address] [place] [address] Glucose [Mass/Vol] 105 mg/dL High 70-100 [facility] Comment on above: Performed By: #### L [id number] #### [facility] ([facility]) [address] [place] [address] Potassium [Moles/Vol] 3.9 mmol/L Normal 3.5-5.1 [facility] Comment on above: Performed By: #### L [id number] #### [facility] ([facility]) [address] [place] [address] Protein [Mass/Vol] 6.7 g/dL Normal 6.0-8.3 [facility] Comment on above: Performed By: #### L [id number] #### [facility] ([facility]) [address] [place] [address] Sodium [Moles/Vol] 140 mmol/L Normal 136-145 [facility] Comment on above: Performed By: #### L [id number] #### [facility] (BEAKER) [address] [place] [address] Urea nitrogen [Mass/Vol] 15 mg/dL Normal 7-25 [facility] Comment on above: Performed By: #### L [id number] #### [facility] (BEAKER) [address] [place] [address] UREA NITROGEN/CREATININE (MASS RATIO) IN SER/PLAS 11.8 Normal [facility] Comment on above: Performed By: #### L [id number] #### [facility] ([facility]) [address] [place] [address] FERRITINon 12-22-2022 FERRITIN (NG/ML) IN SER/PLAS 32.0 ng/mL Normal 24.0-336.0 [facility] Comment on above: Performed By: #### L [id number] ####[facility] ([facility])[address] [place] [address] Follow-Upon 12-22-2022 Follow-Up [id number] Vishal Duke 1960 M Date Provider Department Center 12/22/2022 263-EKINES, OBI TXP None Family History Problem Relation Age of Onset Alzheimer's disease Mother Coronary artery disease Father Family Status - Relation Status Age at Mother Father Level of Service:31024 CT OFFICE/OUTPATIENT ESTABLISHED MOD MDM 30-39 MIN Reason for Visit and Comments: Kidney Follow-up [] Normal [facility] LIPID PANELon 12-22-2022 CHOL/HDL 2.9 mg/dL Normal [facility] Comment on above: Performed By: #### L [id number] ####[facility] ([facility])[address] [place] [address] Cholesterol [Mass/Vol] 123 mg/dL Normal 120-200 [facility] Comment on above: Performed By: #### L [id number] ####[facility] ([facility])[address] [place] [address] Magnesium [Mass/Vol] 162 mg/dL High 40-149 [facility] Comment on above: Result Comment: TRIG LYCERIDE REFERENCE RANGE: 20 YEARS AND OLDER CARDIOVASCULAR RISK LESS THAN 150 mg/dL LOW RISK 150 TO 199 mg/dL BORDERLINE RISK 200 mg/dL AND GREATER HIGH RISK Performed By: #### L [id number] ####[facility] ([facility])[address] [place] [address] Magnesium [Mass/Vol] 48 mg/dL Normal 0-160 [facility] Comment on above: Performed By: #### L [id number] ####[facility] (BEAKER)[address] [place] [address] Magnesium [Mass/Vol] 43 mg/dL Normal 23-92 [facility] Comment on above: Performed By: #### L [id number] ####[facility] ([facility])[address] [place] [address] NON HDL CHOL. (LDL+VLDL) 80 Normal [facility] Comment on above: Performed By: #### L [id number] ####[facility] ([facility])[address] [place] [address] TOTAL VLDL-C 32 mg/dL Normal 0-40 [facility] Comment on above: Performed By: #### L [id number] ####[facility] ([facility])[address] [place] [address] Labon 12-22-2022 Lab [id number] Juan Diego Dukeren D 1960 M Date Provider Department Center 12/22/2022 [id number] DRAW STATION KXT Draw [facility] Family History Problem Relation Age of Onset Alzheimer's disease Mother Coronary artery disease Father Family Status - Relation Status Age at Mother Father Normal [facility] MAGNESIUMon 12-22-2022 Magnesium [Mass/Vol] 1.5 mg/dL Low 1.9-2.7 [facility] Comment on above: Performed By: #### L [id number] #### [facility] ([facility]) [address] [place] [address] Orders Onlyon 12-22-2022 Orders Only [id number] Duke,Vishal D 1960 M Date Provider Department Center 12/22/2022 263-EKWENNA, OBI TXP None Family History Problem Relation Age of Onset Alzheimer's disease Mother Coronary artery disease Father Family Status - Relation Status Age at Mother Father Normal [facility] Orders Only [id number] Duke,Vishal D 1960 M Date Provider Department Center 12/22/2022 435-XIAO CAMPOST [facility] Second Fl Family History Problem Relation Age of Onset Alzheimer's disease Mother Coronary artery disease Father Family Status - Relation Status Age at Mother Father Normal [facility] PHOSPHORUSon 12-22-2022 Magnesium [Mass/Vol] 3.4 mg/dL Normal 2.5-5.0 [facility] Comment on above: Performed By: #### L [id number] #### [facility] (BEAKER) [address] [place] [address] SINGLE ANTIGEN CLASS Ion AB SCREEN COMMENTS No Class I donor specific antibody identified Normal [facility] Comment on above: Performed By: #### L [id number] ####[facility] TISSUE TYPING (HISTOTRAC)[address] [place] [address] [place] CLASS I TESTED DATE Normal [facility] Comment on above: Performed By: #### L [id number] ####[facility] TISSUE TYPING (HISTOTRAC)[address] [place] [address] [facility] SINGLE ANTIGEN CLASS 1 TEST METHOD Class I Single Antigen Normal [facility] Comment on above: Performed By: #### L [id number] ####[facility] TISSUE TYPING (HISTOTRAC)[address] [place] [address] [place] SINGLE ANTIGEN CLASS IIon AB SCREEN COMMENTS No Class II donor specific antibody identified Normal [facility] Comment on above: Performed By: #### L [id number] ####[facility] TISSUE TYPING (HISTOTRAC)[address] [place] [address] [place] CLASS II TESTED DATE [facility] Comment on above: Performed By: #### L [id number] ####[facility] TISSUE TYPING (HISTOTRAC)[address] [place] [address] [facility] SIGNED BY Signed by James farrell CHT([facility]) TITI([facility]), [employer] Immunology [facility] Comment on above: Performed By: #### L [id number] ####[facility] TISSUE TYPING (HISTOTRAC)[address] [place] [address] [place] Result Comment: Clas s I Antigen Microbeads Performed By: #### L [id number] ####[facility] TISSUE TYPING (HISTOTRAC)[address] [place] [address] SINGLE ANTIGEN CLASS 2 TEST METHOD Class II Single Antigen Normal [facility] Comment on above: Result Comment: Clas s II Antigen Microbeads Performed By: #### L [id number] ####[facility] TISSUE TYPING (HISTOTRAC)[address] TACROLIMUS LEVELon Tacrolimus (Bld) [Mass/Vol] 7.9 ng/mL Normal 5.0-20.0 [facility] Comment on above: Result Comment: The [employer] Tacrolimus assay is a delayed one-step immunoassay for the quantitative determination of tacrolimus in human whole blood using the chemiluminescent microparticle immunoassay (CMIA) technology with flexible assay protocols, referred to as Chemiflex. Performed By: #### L [id number] #### [facility] (BEAKER) [address] [place] [address] URIC ACIDon 12-22-2022 Magnesium [Mass/Vol] 4.9 mg/dL Normal 4.4-7.6 [facility] Comment on above: Performed By: #### L [id number] ####[facility] (BEAKER)[address] [place] [address] Office Visiton 12-05-2022 Follow-up visit [id number] Vishal Duke 1960 M Date Provider Department Center 12/05/2022 [place] MICHELLE [place] Family History Problem Relation Age of Onset Alzheimer's disease Mother Coronary artery disease Father Family Status - Relation Status Age at Mother Father Level of Service:29516 CT OFFICE/OUTPATIENT ESTABLISHED LOW MDM 20-29 MIN Normal [facility] Orders Onlyon 12-05-2022 Orders Only [id number] Vishal Duke 1960 M Date Provider Department Center 12/05/2022 LASHONDA MCLEOD MICHELLE [facility] Family History Problem Relation Age of Onset Alzheimer's disease Mother Coronary artery disease Father Family Status - Relation Status Age at Mother Father Normal [facility] CT CHEST WO IV CONTRASTon CT [...] without contrast. Electronically signed: ONELIA WHITE. Normal [facility] Documentationon 11-01-2022 Documentation [id number] Vishal Duke 1960 M Date Provider Department Center 11/01/2022 3193-TIM FOY None Family History Problem Relation Age of Onset Alzheimer's disease Mother Coronary artery disease Father Family Status - Relation Status Age at Mother Father Normal [facility] Office Visiton 10-24-2022 Follow-up visit [id number] Vishal Duke 1960 M Date Provider Department Center 10/24/2022 3861-MADIE BROWN [facility] PULM Comprehensiv Family History Problem Relation Age of Onset Alzheimer's disease Mother Coronary artery disease Father Family Status - Relation Status Age at Mother Father Level of Service:23041 CT OFFICE/OUTPATIENT ESTABLISHED LOW MDM 20-29 MIN (GC) Reason for Visit and Comments: Breathing Problem [17] - More SOB and coughing with weather and air quality changes [facility] Documentationon 10-13-2022 Documentation [id number] Vishal Duke 1960 M Date Provider Department Center 10/13/2022 319Rut-TIM FOY None Family History Problem Relation Age of Onset Alzheimer's disease Mother Coronary artery disease Father Family Status - Relation Status Age at Mother Father [facility] Documentationon 10-06-2022 Documentation [id number] Vishal Duke 1960 M Date Provider Department Center 10/06/2022 Parminder-TIM FOY None Family History Problem Relation Age of Onset Alzheimer's disease Mother Coronary artery disease Father Family Status - Relation Status Age at Mother Father [facility] 29on 09-27-2022 29 Addended by: DEREK MCCOY on: 09/27/2022 12:23 PM Modules accepted: Orders [facility] Follow-Upon 09-27-2022 Follow-Up [id number] Vishal Duke 1960 M Date Provider Department Center 09/27/2022 124-PETEY REDDING None Family History Problem Relation Age of Onset Alzheimer's disease Mother Coronary artery disease Father Family Status - Relation Status Age at Mother Father Level of Service:75835 CT OFFICE/OUTPATIENT ESTABLISHED LOW MDM 20-29 MIN Reason for Visit and Comments: Kidney Follow-up [[id number]] - No major concerns today [facility] Documentationon 09-06-2022 Documentation [id number] Vishal Duke 1960 M Date Provider Department Center 09/06/2022 TIM CORDON None Family History Problem Relation Age of Onset Alzheimer's disease Mother Coronary artery disease Father Family Status - Relation Status Age at Mother Father [facility] FK506 (TACROLIMUS) WHOLE BLO ODon 08-21-2022 Tacrolimus (FK506), Blood 6.0 ng/mL Normal 2.0-20.0 [facility] Comment on above: Result Comment: Trou gh (immediately following transplant) 15.0 . Trough (steady state, 2 weeks or more after transplant): 3.0 - 8.0 . Performed by LC-MS/MS technology. Performed By: #### P HOS, URIC, MG, CMP, DBIL, LIPID #### [facility] Laboratory [address] [place] [address] Dr. Karla Lagos BK VIRUS PCR QUANTon 023 BKV DNA QUANT PCR PLASMA Negative Normal Negative [facility] Comment on above: Result Comment: No B K DNA detected. . The linear range of the assay is 22 - 100,000,000 IU/mL. Performed By: #### P HOS, URIC, MG, CMP, DBIL, LIPID #### [facility] [address] [place] [address] Dr. Karla Lagos Log10 BKV DNA Plasma Normal [facility] Comment on above: Performed By: #### P HOS, URIC, MG, CMP, DBIL, LIPID #### [facility] [address] [place] [address] Dr. Karla Lagos BILIRUBIN CONJUGATED (DIRECT )on 08-18-2022 BILI, CONJUGATED 0.2 mg/dL Normal 0.0-0.2 [facility] Comment on above: Performed By: #### P HOS, URIC, MG, CMP, DBIL, LIPID #### [facility] [address] [place] [address] Dr. Karla Lagos CBC AUTO DIFFon 08-18-2022 BASO # 0.1 103/ul Normal 0.0-0.1 [facility] Comment on above: Performed By: #### P HOS, URIC, MG, CMP, DBIL, LIPID #### [facility] [address] [place] [address] Dr. Karla Lagos Basophils/100 WBC (Bld) 1.0 % Normal 0.2-2.0 [facility] Comment on above: Performed By: #### P HOS, URIC, MG, CMP, DBIL, LIPID #### [facility] [address] [place] [address] Dr. Karla Lagos EO # 0.1 103/ul Normal 0.0-0.7 [facility] Comment on above: Performed By: #### P HOS, URIC, MG, CMP, DBIL, LIPID #### [facility] [address] [place] [address] Dr. Karla Lagos Eosinophils/100 WBC (Bld) 1.3 % Normal 0.9-7.0 [facility] Comment on above: Performed By: #### P HOS, URIC, MG, CMP, DBIL, LIPID #### [facility] [address] [place] [address] Dr. Karla Lagos Erythrocyte distribution width (RBC) [Ratio] 14.0 % Normal 11.0-15.0 [facility] Comment on above: Performed By: #### P HOS, URIC, MG, CMP, DBIL, LIPID #### [facility] [address] [place] [address] Dr. Karla Lagos Hematocrit (Bld) [Volume fraction] 52.7 % Normal 42.0-54.0 [facility] Comment on above: Performed By: #### P HOS, URIC, MG, CMP, DBIL, LIPID #### [facility] [address] [place] [address] Dr. Karla Lagos Hemoglobin (Bld) [Mass/Vol] 17.0 g/dL Normal 14.0-18.0 [facility] Comment on above: Performed By: #### P HOS, URIC, MG, CMP, DBIL, LIPID #### [facility] [address] [place] [address] Dr. Karla Lagos IG # 0.03 10e3/ul Normal 0.00-0.03 [facility] Comment on above: Performed By: #### P HOS, URIC, MG, CMP, DBIL, LIPID #### [facility] [address] [place] [address] Dr. Karla Lagos IG % 0.4 % Normal 0.0-0.5 [facility] Comment on above: Performed By: #### P HOS, URIC, MG, CMP, DBIL, LIPID #### [facility] [address] [place] [address] Dr. Karla Lagos LYMPH # 1.1 103/ul Critically low 1.2-3.8 [facility] Comment on above: Performed By: #### P HOS, URIC, MG, CMP, DBIL, LIPID #### [facility] [address] [place] [address] Dr. Karla Lagos Lymphocytes/100 WBC (Bld) 16.0 % Critically low 20.5-60.0 [facility] Comment on above: Performed By: #### P HOS, URIC, MG, CMP, DBIL, LIPID #### [facility] [address] [place] [address] Dr. Karla Lagos MANUAL DIFF REQ NO Normal [facility] Comment on above: Performed By: #### P HOS, URIC, MG, CMP, DBIL, LIPID #### [facility] [address] [place] [address] Dr. Karla Lagos MCH (RBC) [Entitic mass] 29.9 pg Normal 25.9-34.0 [facility] Comment on above: Performed By: #### P HOS, URIC, MG, CMP, DBIL, LIPID #### [facility] [address] [place] [address] Dr. Karla Lagos MCHC (RBC) [Mass/Vol] 32.3 g/dL Normal 29.9-35.2 [facility] Comment on above: Performed By: #### P HOS, URIC, MG, CMP, DBIL, LIPID #### [facility] [address] [place] [address] Dr. Karla Lagos MCV (RBC) [Entitic vol] 92.6 fL Normal 80.0-94.0 [facility] Comment on above: Performed By: #### P HOS, URIC, MG, CMP, DBIL, LIPID #### [facility] [address] [place] [address] Dr. Karla Lagos MONO # 0.7 103/ul Normal 0.3-0.8 [facility] Comment on above: Performed By: #### P HOS, URIC, MG, CMP, DBIL, LIPID #### [facility] [address] [place] [address] Dr. Karla Lagos Monocytes/100 WBC (Bld) 10.6 % Normal 1.7-12.0 [facility] Comment on above: Performed By: #### P HOS, URIC, MG, CMP, DBIL, LIPID #### [facility] [address] [place] [address] Dr. Karla Lagos NEUT # 5.0 103/ul Normal 1.4-6.5 [facility] Comment on above: Performed By: #### P HOS, URIC, MG, CMP, DBIL, LIPID #### [facility] [address] [place] [address] Dr. Karla Lagso Neutrophils/100 WBC (Bld) 70.7 % Normal 43.0-75.0 [facility] Comment on above: Performed By: #### P HOS, URIC, MG, CMP, DBIL, LIPID #### [facility] [address] [place] [address] Dr. Karla Lagos Platelet mean volume (Bld) [Entitic vol] 10.3 fL Normal 9.5-13.5 [facility] Comment on above: Performed By: #### P HOS, URIC, MG, CMP, DBIL, LIPID #### [facility] [address] [place] [address] Dr. Karla Lagos PLT 263 103/ul Normal 150-450 [facility] Comment on above: Performed By: #### P HOS, URIC, MG, CMP, DBIL, LIPID #### [facility] [address] [place] [address] Dr. Karla Lagos RBC 5.69 106/ul Normal 4.70-6.10 [facility] Comment on above: Performed By: #### P HOS, URIC, MG, CMP, DBIL, LIPID #### [facility] [address] [place] [address] Dr. Karla Lagos WBC 7.0 103/ul Normal 4.0-11.0 [facility] Comment on above: Performed By: #### P HOS, URIC, MG, CMP, DBIL, LIPID #### [facility] [address] [place] [address] Dr. Karla Lagos LIPID PROFILEon 08-18-2022 CHOL-HDL RATIO NORM SEE BELOW Normal [facility] Comment on above: Result Comment: 3.3 - 4.4 LOW RISK 4.4 - 7.1 AVERAGE RISK 7.1 - 11.0 MODERATE RISK >11.0 HIGH RISK Performed By: #### P HOS, URIC, MG, CMP, DBIL, LIPID #### [facility] [address] [address] [address] Karla Lagos Cholesterol [Mass/Vol] 137 mg/dL Normal <=200 [facility] Comment on above: Performed By: #### P HOS, URIC, MG, CMP, DBIL, LIPID #### [facility] [address] [address] [address] Karla Lagos Cholesterol in HDL [Mass/Vol] 45 mg/dL Normal 40-60 [facility] Comment on above: Performed By: #### P HOS, URIC, MG, CMP, DBIL, LIPID #### [facility] [address] [address] [address] Karla Lagos Cholesterol in LDL [Mass/Vol] 59.0 mg/dL Normal [facility] Comment on above: Performed By: #### P HOS, URIC, MG, CMP, DBIL, LIPID #### [facility] [address] [address] [address] Karla Lagos Cholesterol.total/C holesterol in HDL [Mass ratio] 3.0 {ratio} Normal [facility] Comment on above: Performed By: #### P HOS, URIC, MG, CMP, DBIL, LIPID #### [facility] [address] [address] [address] Karla Lagos HDL NORMAL > or = 60 mg/dl - LO W CARDIOVASCULAR RISK <40 mg/dl - HIGH CARDIOVASCULAR RISK Normal [facility] Comment on above: Performed By: #### P HOS, URIC, MG, CMP, DBIL, LIPID #### [facility] [address] [address] [address] Karla Lagos LDL CALC NORMAL SEE BELOW Normal [facility] Comment on above: Result Comment: <100 mg/dl OPTIMAL 100 - 129 mg/dl NEAR OR ABOVE OPTIMAL 130 - 159 mg/dl BORDERLINE HIGH 160 - 189 mg/dl HIGH >190 mg/dl VERY HIGH Performed By: #### P HOS, URIC, MG, CMP, DBIL, LIPID #### [facility] [address] [address] [address] Karla Lagos Triglyceride [Mass/Vol] 165 mg/dL Critically high <=150 [facility] Comment on above: Performed By: #### P HOS, URIC, MG, CMP, DBIL, LIPID #### [facility] [address] [address] [address] Karla Lagos VLDL CALC 33.0 mg/dL Normal [facility] Comment on above: Performed By: #### P HOS, URIC, MG, CMP, DBIL, LIPID #### [facility] [address] [address] [address] Karla Lagos MAGNESIUMon 08-18-2022 Magnesium [Mass/Vol] 1.7 mg/dL Critically low 1.8-2.4 [facility] Comment on above: Performed By: #### P HOS, URIC, MG, CMP, DBIL, LIPID #### [facility] [address] [address] [address] Karla Lagos Orders Onlyon 08-18-2022 Orders Only [id number] Vishal Duke 1960 M Date Provider Department Center 08/18/2022 [id number], OBI [facility] [address] Family History Problem Relation Age of Onset Alzheimer's disease Mother Coronary artery disease Father Family Status - Relation Status Age at Mother Father Normal [facility] Orders Only [id number] Vishal Duke 1960 M Date Provider Department Center 08/18/2022 [id number]-FARRUKH BLANCAS None Family History Problem Relation Age of Onset Alzheimer's disease Mother Coronary artery disease Father Family Status - Relation Status Age at Mother Father Normal [facility] PHOSPHORUSon 08-18-2022 Phosphate [Mass/Vol] 3.6 mg/dL Normal 2.6-4.7 [facility] Comment on above: Performed By: #### P HOS, URIC, MG, CMP, DBIL, LIPID #### [facility] [address] [place] [address] Dr. Karla Lagos PROF 14(COMP METB)on 023 Albumin [Mass/Vol] 4.0 g/dL Normal 3.4-5.0 [facility] Comment on above: Performed By: #### P HOS, URIC, MG, CMP, DBIL, LIPID #### [facility] [address] [place] [address] Dr. Karla Lagos Albumin/Globulin [Mass ratio] 1.1 {ratio} Normal [facility] Comment on above: Performed By: #### P HOS, URIC, MG, CMP, DBIL, LIPID #### [facility] [address] [place] [address] Dr. Karla Lagos ALP [Catalytic activity/Vol] 96 U/L Normal 46-116 [facility] Comment on above: Performed By: #### P HOS, URIC, MG, CMP, DBIL, LIPID #### [facility] [address] [place] [address] Dr. Karla Lagos ALT [Catalytic activity/Vol] 42 U/L Normal 16-63 [facility] Comment on above: Performed By: #### P HOS, URIC, MG, CMP, DBIL, LIPID #### [facility] [address] [place] [address] Dr. Karla Lagos Anion gap [Moles/Vol] 12.9 mmol/L Normal [facility] Comment on above: Performed By: #### P HOS, URIC, MG, CMP, DBIL, LIPID #### [facility] [address] [place] [address] Dr. Karla Lagos AST [Catalytic activity/Vol] 22 U/L Normal 15-37 [facility] Comment on above: Performed By: #### P HOS, URIC, MG, CMP, DBIL, LIPID #### [facility] [address] [place] [address] Dr. Karla Lagos Bilirubin [Mass/Vol] 0.7 mg/dL Normal 0.2-1.0 [facility] Comment on above: Performed By: #### P HOS, URIC, MG, CMP, DBIL, LIPID #### [facility] [address] [address] [address] Karla Lagos Calcium [Mass/Vol] 9.4 mg/dL Normal 8.5-10.1 [facility] Comment on above: Performed By: #### P HOS, URIC, MG, CMP, DBIL, LIPID #### [facility] [address] [place] [address] Dr. Karla Lagos Chloride [Moles/Vol] 103 mmol/L Normal 98-107 [facility] Comment on above: Performed By: #### P HOS, URIC, MG, CMP, DBIL, LIPID #### [facility] [address] [place] [address] Dr. Karla Lagos CO2 [Moles/Vol] 27.8 mmol/L Normal 21.0-32.0 [facility] Comment on above: Performed By: #### P HOS, URIC, MG, CMP, DBIL, LIPID #### [facility] [address] [place] [address] Dr. Karla Lagos Creatinine [Mass/Vol] 1.28 mg/dL Normal 0.70-1.30 [facility] Comment on above: Performed By: #### P HOS, URIC, MG, CMP, DBIL, LIPID #### [facility] [address] [place] [address] Dr. Karla Lagos EGFR-AF QATARI >60 Normal >=60 [facility] Comment on above: Performed By: #### P HOS, URIC, MG, CMP, DBIL, LIPID #### [facility] [address] [place] [address] Dr. Karla Lagos EGFR-NON AF QATARI 57 mL/min/1.73m2 Critically low >=60 [facility] Comment on above: Performed By: #### P HOS, URIC, MG, CMP, DBIL, LIPID #### [facility] [address] [place] [address] Dr. Karla Lagos Globulin (S) [Mass/Vol] 3.5 g/dL Normal [facility] Comment on above: Performed By: #### P HOS, URIC, MG, CMP, DBIL, LIPID #### [facility] [address] [address] [address] Karla Lagos Glucose [Mass/Vol] 123 mg/dL Critically high 74-106 [facility] Comment on above: Performed By: #### P HOS, URIC, MG, CMP, DBIL, LIPID #### [facility] [address] [place] [address] Dr. Karla Lagos Potassium [Moles/Vol] 4.7 mmol/L Normal 3.5-5.1 [facility] Comment on above: Performed By: #### P HOS, URIC, MG, CMP, DBIL, LIPID #### [facility] [address] [address] [address] Karla Lagos Protein [Mass/Vol] 7.5 g/dL Normal 6.4-8.2 [facility] Comment on above: Performed By: #### P HOS, URIC, MG, CMP, DBIL, LIPID #### [facility] [address] [address] [address] Karla Lagos Sodium [Moles/Vol] 139 mmol/L Normal 136-145 [facility] Comment on above: Performed By: #### P HOS, URIC, MG, CMP, DBIL, LIPID #### [facility] [address] [place] [address] Dr. Karla Lagos Urea nitrogen [Mass/Vol] 22.0 mg/dL Critically high 7.0-18.0 [facility] Comment on above: Performed By: #### P HOS, URIC, MG, CMP, DBIL, LIPID #### [facility] [address] [place] [address] Dr. Karla Lagos Urea nitrogen/Creatinine [Mass ratio] 17.2 mg/mg Normal [facility] Comment on above: Performed By: #### P HOS, URIC, MG, CMP, DBIL, LIPID #### [facility] [address] [place] [address] Dr. Karla Lagos URIC ACID SERUMon 08-18-2022 Urate [Mass/Vol] 4.8 mg/dL Normal 3.5-7.2 [facility] Comment on above: Performed By: #### P HOS, URIC, MG, CMP, DBIL, LIPID #### [facility] [address] [place] [address] Dr. Karla Lagos 29on 07-29-2022 29 Addended by: DANIELLAROSA M on: 08/03/2022 02:03 PM Modules accepted: Orders Normal [facility] Office Visiton 07-29-2022 Follow-up visit [id number] Vishal Duke 1960 M Date Provider Department Center 07/29/2022 [id number], KELVIN CCC PULM Comprehensiv Family History Problem Relation Age of Onset Alzheimer's disease Mother Coronary artery disease Father Family Status - Relation Status Age at Mother Father Level of Service:48231 CT OFFICE/OUTPATIENT ESTABLISHED MOD MDM 30-39 MIN (GC) Reason for Visit and Comments: Shortness of Breath [399274] - Pt reports being SOB and coughing since he had covid two years ago. Normal [facility] BK VIRUS PCR QUANTon 023 BKV DNA QUANT PCR PLASMA Negative Normal Negative [facility] Comment on above: Result Comment: No B K DNA detected. . The linear range of the assay is 22 - 100,000,000 IU/mL. Performed By: #### B KVIRUS #### [facility] [address] [place] [address] Dr. Karla Lagos Log10 BKV DNA Plasma Normal [facility] Comment on above: Performed By: #### B KVIRUS #### [facility] [address] [place] [address] Dr. Karla Lagos FK506 (TACROLIMUS) WHOLE BLO ODon 07-21-2022 Tacrolimus (FK506), Blood 6.1 ng/mL Normal 2.0-20.0 [facility] Comment on above: Result Comment: Trou gh (immediately following transplant) 15.0 . Trough (steady state, 2 weeks or more after transplant): 3.0 - 8.0 . Performed by LC-MS/MS technology. Performed By: #### P HOS, URIC, MG, CMP, DBIL, LIPID #### [facility] [address] [place] [address] Dr. Karla Lagos BILIRUBIN CONJUGATED (DIRECT )on 07-19-2022 BILI, CONJUGATED 0.2 mg/dL Normal 0.0-0.2 [facility] Comment on above: Performed By: #### P HOS, URIC, MG, CMP, DBIL, LIPID #### [facility] [address] [place] [address] Dr. Karla Lagos CBC AUTO DIFFon 07-19-2022 BASO # 0.0 103/ul Normal 0.0-0.1 [facility] Comment on above: Performed By: #### P HOS, URIC, MG, CMP, DBIL, LIPID #### [facility] [address] [place] [address] Dr. Karla Lagos Basophils/100 WBC (Bld) 0.4 % Normal 0.2-2.0 [facility] Comment on above: Performed By: #### P HOS, URIC, MG, CMP, DBIL, LIPID #### [facility] [address] [place] [address] Dr. Karla Lagos EO # 0.1 103/ul Normal 0.0-0.7 [facility] Comment on above: Performed By: #### P HOS, URIC, MG, CMP, DBIL, LIPID #### [facility] [address] [place] [address] Dr. Karla Lagos Eosinophils/100 WBC (Bld) 1.6 % Normal 0.9-7.0 [facility] Comment on above: Performed By: #### P HOS, URIC, MG, CMP, DBIL, LIPID #### [facility] [address] [place] [address] Dr. Karla Lagos Erythrocyte distribution width (RBC) [Ratio] 14.2 % Normal 11.0-15.0 [facility] Comment on above: Performed By: #### P HOS, URIC, MG, CMP, DBIL, LIPID #### [facility] [address] [place] [address] Dr. Karla Lagos Hematocrit (Bld) [Volume fraction] 49.8 % Normal 42.0-54.0 [facility] Comment on above: Performed By: #### P HOS, URIC, MG, CMP, DBIL, LIPID #### [facility] [address] [address] [address] Karla Lagos Hemoglobin (Bld) [Mass/Vol] 16.6 g/dL Normal 14.0-18.0 [facility] Comment on above: Performed By: #### P HOS, URIC, MG, CMP, DBIL, LIPID #### [facility] [address] [place] [address] Dr. Karla Lagos IG # 0.03 10e3/ul Normal 0.00-0.03 [facility] Comment on above: Performed By: #### P HOS, URIC, MG, CMP, DBIL, LIPID #### [facility] [address] [place] [address] Dr. Karla Lagos IG % 0.4 % Normal 0.0-0.5 [facility] Comment on above: Performed By: #### P HOS, URIC, MG, CMP, DBIL, LIPID #### [facility] [address] [place] [address] Dr. Karla Lagos LYMPH # 1.1 103/ul Critically low 1.2-3.8 [facility] Comment on above: Performed By: #### P HOS, URIC, MG, CMP, DBIL, LIPID #### [facility] [address] [place] [address] Dr. Karla Lagos Lymphocytes/100 WBC (Bld) 14.9 % Critically low 20.5-60.0 [facility] Comment on above: Performed By: #### P HOS, URIC, MG, CMP, DBIL, LIPID #### [facility] [address] [place] [address] Dr. Karla Lagos MANUAL DIFF REQ NO Normal [facility] Comment on above: Performed By: #### P HOS, URIC, MG, CMP, DBIL, LIPID #### [facility] [address] [place] [address] Dr. Karla Lagos MCH (RBC) [Entitic mass] 30.4 pg Normal 25.9-34.0 [facility] Comment on above: Performed By: #### P HOS, URIC, MG, CMP, DBIL, LIPID #### [facility] [address] [place] [address] Dr. Karla Lagos MCHC (RBC) [Mass/Vol] 33.3 g/dL Normal 29.9-35.2 [facility] Comment on above: Performed By: #### P HOS, URIC, MG, CMP, DBIL, LIPID #### [facility] [address] [place] [address] Dr. Karla Lagos MCV (RBC) [Entitic vol] 91.2 fL Normal 80.0-94.0 [facility] Comment on above: Performed By: #### P HOS, URIC, MG, CMP, DBIL, LIPID #### [facility] [address] [place] [address] Dr. Karla Lagos MONO # 0.7 103/ul Normal 0.3-0.8 [facility] Comment on above: Performed By: #### P HOS, URIC, MG, CMP, DBIL, LIPID #### [facility] [address] [place] [address] Dr. Karla Lagos Monocytes/100 WBC (Bld) 10.3 % Normal 1.7-12.0 [facility] Comment on above: Performed By: #### P HOS, URIC, MG, CMP, DBIL, LIPID #### [facility] [address] [place] [address] Dr. Karla Lagos NEUT # 5.1 103/ul Normal 1.4-6.5 [facility] Comment on above: Performed By: #### P HOS, URIC, MG, CMP, DBIL, LIPID #### [facility] [address] [place] [address] Dr. Karla Lagos Neutrophils/100 WBC (Bld) 72.4 % Normal 43.0-75.0 [facility] Comment on above: Performed By: #### P HOS, URIC, MG, CMP, DBIL, LIPID #### [facility] [address] [place] [address] Dr. Karla Lagos Platelet mean volume (Bld) [Entitic vol] 10.4 fL Normal 9.5-13.5 [facility] Comment on above: Performed By: #### P HOS, URIC, MG, CMP, DBIL, LIPID #### [facility] [address] [address] [address] Karla Lagos PLT 248 103/ul Normal 150-450 [facility] Comment on above: Performed By: #### P HOS, URIC, MG, CMP, DBIL, LIPID #### [facility] [address] [address] [address] Karla Lagos RBC 5.46 106/ul Normal 4.70-6.10 [facility] Comment on above: Performed By: #### P HOS, URIC, MG, CMP, DBIL, LIPID #### [facility] [address] [place] [address] Dr. Karla Lagos WBC 7.1 103/ul Normal 4.0-11.0 [facility] Comment on above: Performed By: #### P HOS, URIC, MG, CMP, DBIL, LIPID #### [facility] [address] [place] [address] Dr. Karla Lagos LIPID PROFILEon 07-19-2022 CHOL-HDL RATIO NORM SEE BELOW Normal [facility] Comment on above: Result Comment: 3.3 - 4.4 LOW RISK 4.4 - 7.1 AVERAGE RISK 7.1 - 11.0 MODERATE RISK >11.0 HIGH RISK Performed By: #### P HOS, URIC, MG, CMP, DBIL, LIPID #### [facility] [address] [address] [address] Karla Lagos Cholesterol [Mass/Vol] 130 mg/dL Normal <=200 [facility] Comment on above: Performed By: #### P HOS, URIC, MG, CMP, DBIL, LIPID #### [facility] [address] [address] [address] Karla Lagos Cholesterol in HDL [Mass/Vol] 43 mg/dL Normal 40-60 [facility] Comment on above: Performed By: #### P HOS, URIC, MG, CMP, DBIL, LIPID #### [facility] [address] [address] [address] Karla Lagos Cholesterol in LDL [Mass/Vol] 61.8 mg/dL Normal [facility] Comment on above: Performed By: #### P HOS, URIC, MG, CMP, DBIL, LIPID #### [facility] [address] [address] [address] Karla Lagos Cholesterol.total/C holesterol in HDL [Mass ratio] 3.0 {ratio} Normal [facility] Comment on above: Performed By: #### P HOS, URIC, MG, CMP, DBIL, LIPID #### [facility] [address] [address] [address] Karla Lagos HDL NORMAL > or = 60 mg/dl - LO W CARDIOVASCULAR RISK <40 mg/dl - HIGH CARDIOVASCULAR RISK Normal [facility] Comment on above: Performed By: #### P HOS, URIC, MG, CMP, DBIL, LIPID #### [facility] [address] [address] [address] Karla Lagos LDL CALC NORMAL SEE BELOW Normal [facility] Comment on above: Result Comment: <100 mg/dl OPTIMAL 100 - 129 mg/dl NEAR OR ABOVE OPTIMAL 130 - 159 mg/dl BORDERLINE HIGH 160 - 189 mg/dl HIGH >190 mg/dl VERY HIGH Performed By: #### P HOS, URIC, MG, CMP, DBIL, LIPID #### [facility] [address] [address] [address] Karla Lagos Triglyceride [Mass/Vol] 126 mg/dL Normal <=150 [facility] Comment on above: Performed By: #### P HOS, URIC, MG, CMP, DBIL, LIPID #### [facility] [address] [address] [address] Karla Lagos VLDL CALC 25.2 mg/dL Normal [facility] Comment on above: Performed By: #### P HOS, URIC, MG, CMP, DBIL, LIPID #### [facility] [address] [place] [address] Dr. Karla Lagos MAGNESIUMon 07-19-2022 Magnesium [Mass/Vol] 1.7 mg/dL Critically low 1.8-2.4 [facility] Comment on above: Performed By: #### P HOS, URIC, MG, CMP, DBIL, LIPID #### [facility] [address] [place] [address] Dr. Karla Lagos PHOSPHORUSon 07-19-2022 Phosphate [Mass/Vol] 3.1 mg/dL Normal 2.6-4.7 [facility] Comment on above: Performed By: #### P HOS, URIC, MG, CMP, DBIL, LIPID #### [facility] [address] [place] [address] Dr. Karla Lagos PROF 14(COMP METB)on 023 Albumin [Mass/Vol] 4.0 g/dL Normal 3.4-5.0 [facility] Comment on above: Performed By: #### P HOS, URIC, MG, CMP, DBIL, LIPID #### [facility] [address] [place] [address] Dr. Karla Lagos Albumin/Globulin [Mass ratio] 1.3 {ratio} Normal [facility] Comment on above: Performed By: #### P HOS, URIC, MG, CMP, DBIL, LIPID #### [facility] [address] [place] [address] Dr. Karla Lagos ALP [Catalytic activity/Vol] 79 U/L Normal 46-116 [facility] Comment on above: Performed By: #### P HOS, URIC, MG, CMP, DBIL, LIPID #### [facility] [address] [place] [address] Dr. Karla Lagos ALT [Catalytic activity/Vol] 40 U/L Normal 16-63 [facility] Comment on above: Performed By: #### P HOS, URIC, MG, CMP, DBIL, LIPID #### [facility] [address] [place] [address] Dr. Karla Lagos Anion gap [Moles/Vol] 12.8 mmol/L Normal [facility] Comment on above: Performed By: #### P HOS, URIC, MG, CMP, DBIL, LIPID #### [facility] [address] [place] [address] Dr. Karla Lagos AST [Catalytic activity/Vol] 24 U/L Normal 15-37 [facility] Comment on above: Performed By: #### P HOS, URIC, MG, CMP, DBIL, LIPID #### [facility] [address] [place] [address] Dr. Karla Lagos Bilirubin [Mass/Vol] 0.7 mg/dL Normal 0.2-1.0 [facility] Comment on above: Performed By: #### P HOS, URIC, MG, CMP, DBIL, LIPID #### [facility] [address] [place] [address] Dr. Karla Lagos Calcium [Mass/Vol] 9.3 mg/dL Normal 8.5-10.1 [facility] Comment on above: Performed By: #### P HOS, URIC, MG, CMP, DBIL, LIPID #### [facility] [address] [place] [address] Dr. Karla Lagos Chloride [Moles/Vol] 105 mmol/L Normal 98-107 [facility] Comment on above: Performed By: #### P HOS, URIC, MG, CMP, DBIL, LIPID #### [facility] [address] [place] [address] Dr. Karla Lagos CO2 [Moles/Vol] 28.4 mmol/L Normal 21.0-32.0 [facility] Comment on above: Performed By: #### P HOS, URIC, MG, CMP, DBIL, LIPID #### [facility] [address] [place] [address] Dr. Karla Lagos Creatinine [Mass/Vol] 1.23 mg/dL Normal 0.70-1.30 [facility] Comment on above: Performed By: #### P HOS, URIC, MG, CMP, DBIL, LIPID #### [facility] [address] [place] [address] Dr. Karla Lagos EGFR-AF QATARI >60 Normal >=60 [facility] Comment on above: Performed By: #### P HOS, URIC, MG, CMP, DBIL, LIPID #### [facility] [address] [place] [address] Dr. Karla Lagos EGFR-NON AF QATARI =60 Normal >=60 [facility] Comment on above: Performed By: #### P HOS, URIC, MG, CMP, DBIL, LIPID #### [facility] [address] [place] [address] Dr. Karla Lagos Globulin (S) [Mass/Vol] 3.1 g/dL Normal [facility] Comment on above: Performed By: #### P HOS, URIC, MG, CMP, DBIL, LIPID #### [facility] [address] [address] [address] Karla Lagos Glucose [Mass/Vol] 114 mg/dL Critically high 74-106 [facility] Comment on above: Performed By: #### P HOS, URIC, MG, CMP, DBIL, LIPID #### [facility] [address] [place] [address] Dr. Karla Lagos Potassium [Moles/Vol] 4.2 mmol/L Normal 3.5-5.1 [facility] Comment on above: Performed By: #### P HOS, URIC, MG, CMP, DBIL, LIPID #### [facility] [address] [place] [address] Dr. Karla Lagos Protein [Mass/Vol] 7.1 g/dL Normal 6.4-8.2 [facility] Comment on above: Performed By: #### P HOS, URIC, MG, CMP, DBIL, LIPID #### [facility] [address] [place] [address] Dr. Karla Lagos Sodium [Moles/Vol] 142 mmol/L Normal 136-145 [facility] Comment on above: Performed By: #### P HOS, URIC, MG, CMP, DBIL, LIPID #### [facility] [address] [place] [address] Dr. Karla Lagos Urea nitrogen [Mass/Vol] 15.0 mg/dL Normal 7.0-18.0 [facility] Comment on above: Performed By: #### P HOS, URIC, MG, CMP, DBIL, LIPID #### [facility] [address] [place] [address] Dr. Karla Lagos Urea nitrogen/Creatinine [Mass ratio] 12.2 mg/mg Normal [facility] Comment on above: Performed By: #### P HOS, URIC, MG, CMP, DBIL, LIPID #### [facility] [address] [address] [address] Karla Lagos URIC ACID SERUMon 07-19-2022 Urate [Mass/Vol] 5.1 mg/dL Normal 3.5-7.2 [facility] Comment on above: Performed By: #### P HOS, URIC, MG, CMP, DBIL, LIPID #### [facility] [address] [place], [place] [address] Dr. Karla Lagos BILIRUBIN, DIRECTon 06-17-19 Magnesium [Mass/Vol] 0.2 mg/dL Normal 0-0.2 [facility] Comment on above: Performed By: #### L [id number] #### [facility] ([facility]) [address] [place] [address] BK VIRUS, PLASMA, QUANTITATI VEon 06-16-2022 BK QUANTITATION Not detected Normal [facility] Comment on above: Result Comment: Meth od: BK virus was measured by quantitative polymerase chain reaction using a fluorescent hydrolysis probe targeting the polyomavirus BK PRESCHO[employer] TEACHER AIDE-1 gene. The lower limit of quantitation of the assay is 500 copies of BK genome per milliliter of plasma or urine, and any detectable BK DNA below that level is reported as: Detected, <500 copies/ml. Serial BK virus measurement can be used to monitor disease activity. (Reference: Kenneth ronl. J CLIN MICRO 2004; 42:5263-2667). This test was developed and its performance characteristics determined by the [facility]. It has not been approved by the US Food and Drug Administration. However, such approval is not required for clinical implementation, and test results have been shown to be clinically useful. This laboratory is CAP accredited and CLIA certified to perform high complexity testing. Performed By: #### L [id number] #### [facility] ([facility]) [address] [place] [address] BK QUANTITATION LOG Not detected Normal [facility] Comment on above: Performed By: #### L [id number] #### [facility] ([facility]) [address] [place] [address] CBC WITH AUTO DIFFERENTIALon 06-16-2022 Basophils (Bld) [#/Vol] 0.07 10*3/uL Normal 0.00-0.20 [facility] Comment on above: Performed By: #### L [id number] #### [facility] ([facility]) [address] [place] [address] Basophils/100 WBC (Bld) 1.0 % Normal 0.0-1.0 [facility] Comment on above: Performed By: #### L [id number] #### [facility] ([facility]) [address] [place] [address] Eosinophils (Bld) [#/Vol] 0.13 10*3/uL Normal 0.00-0.50 [facility] Comment on above: Performed By: #### L [id number] #### [facility] ([facility]) [address] [facility] [place] [address] Eosinophils/100 WBC (Bld) 1.9 % Normal 0.0-6.0 [facility] Comment on above: Performed By: #### L [id number] #### [facility] ([facility]) [address] [place] [address] Erythrocyte distribution width (RBC) [Ratio] 14.4 % Normal 11.5-15.0 [facility] Comment on above: Performed By: #### L [id number] #### [facility] ([facility]) [address] [place] [address] ERYTHROCYTE MEAN CORPUSCULAR HEMOGLOBIN CONCENTRATION (G/DL) BY AUTOMATED 32.7 g/dL Normal 32.0-35.0 [facility] Comment on above: Performed By: #### L [id number] #### [facility] ([facility]) [address] [place] [address] Hematocrit (Bld) [Volume fraction] 51.3 % Normal 39.0-55.0 [facility] Comment on above: Performed By: #### L [id number] #### [facility] ([facility]) [address] [place] [address] Hemoglobin (Bld) [Mass/Vol] 16.8 g/dL Normal 13.0-17.0 [facility] Comment on above: Performed By: #### L [id number] #### [facility] ([facility]) [address] [place] [address] Immature granulocytes (Bld) [#/Vol] 0.04 10*3/uL Normal 0.00-0.20 [facility] Comment on above: Performed By: #### L [id number] #### [facility] ([facility]) [address] [place] [address] Immature granulocytes/100 WBC (Bld) 0.6 % Normal 0.0-1.0 [facility] Comment on above: Performed By: #### L [id number] #### [facility] ([facility]) [address] [place] [address] Lymphocytes (Bld) [#/Vol] 1.20 10*3/uL Normal 1.20-4.00 [facility] Comment on above: Performed By: #### L [id number] #### [facility] ([facility]) [address] [place] [address] Lymphocytes/100 WBC (Bld) 17.4 % Low 20.0-45.0 [facility] Comment on above: Performed By: #### L [id number] #### [facility] ([facility]) [address] [place] [address] MCH (RBC) [Entitic mass] 30.3 pg Normal 27.0-33.0 [facility] Comment on above: Performed By: #### L [id number] #### [facility] ([facility]) [address] [place] [address] MCV (RBC) [Entitic vol] 92.6 fL Normal 82.0-98.0 [facility] Comment on above: Performed By: #### L [id number] #### [facility] ([facility]) [address] [place] [address] Monocytes (Bld) [#/Vol] 0.71 10*3/uL Normal 0.10-1.00 [facility] Comment on above: Performed By: #### L [id number] #### [facility] ([facility]) [address] [place] [address] Monocytes/100 WBC (Bld) 10.3 % Normal 5.0-12.0 [facility] Comment on above: Performed By: #### L [id number] #### [facility] ([facility]) [address] [place] [address] Neutrophils (Bld) [#/Vol] 4.73 10*3/uL Normal 1.60-7.60 [facility] Comment on above: Performed By: #### L [id number] #### [facility] ([facility]) [address] [place] [address] Neutrophils/100 WBC (Bld) 68.8 % Normal 40.0-72.0 [facility] Comment on above: Performed By: #### L [id number] #### [facility] ([facility]) [address] [place] [address] NRBC (PER 100 WBCS) BY AUTOMATED COUNT 0.0 % Normal 0.0-0.0 [facility] Comment on above: Performed By: #### L [id number] #### [facility] ([facility]) [address] [place] [address] PLATELETS (10*3/UL) IN BLOOD AUTOMATED COUNT 264 10*3/uL Normal 150-400 [facility] Comment on above: Performed By: #### L [id number] #### [facility] ([facility]) [address] [place] [address] RBC (Bld) [#/Vol] 5.54 10*6/uL Normal 4.20-5.70 [facility] Comment on above: Performed By: #### L [id number] #### [facility] ([facility]) [address] [place] [address] WBC (Bld) [#/Vol] 6.88 10*3/uL Normal 4.00-10.60 [facility] Comment on above: Performed By: #### L [id number] #### [facility] ([facility]) [address] [place] [address] COMPREHENSIVE METABOLIC PANE Nitin 06-16-2022 Albumin [Mass/Vol] 4.6 g/dL Normal 3.5-5.7 [facility] Comment on above: Performed By: #### L [id number] #### [facility] ([facility]) [address] [place] [address] ALP [Catalytic activity/Vol] 77 U/L Normal 34-104 [facility] Comment on above: Performed By: #### L [id number] #### [facility] ([facility]) [address] [place] [address] ALT [Catalytic activity/Vol] 32 U/L Normal 7-52 [facility] Comment on above: Performed By: #### L [id number] #### [facility] ([facility]) [address] [place] [address] Anion gap [Moles/Vol] 12 mmol/L Normal 7-20 [facility] Comment on above: Performed By: #### L [id number] #### [facility] ([facility]) [address] [place] [address] AST [Catalytic activity/Vol] 24 U/L Normal 13-39 [facility] Comment on above: Performed By: #### L [id number] #### [facility] ([facility]) [address] [place] [address] Bilirubin [Mass/Vol] 0.9 mg/dL Normal 0.3-1.0 [facility] Comment on above: Performed By: #### L [id number] #### [facility] ([facility]) [address] [place] [address] Calcium [Mass/Vol] 9.7 mg/dL Normal 8.6-10.3 [facility] Comment on above: Performed By: #### L [id number] #### [facility] ([facility]) [address] [place] [address] Chloride [Moles/Vol] 105 mmol/L Normal 98-107 [facility] Comment on above: Performed By: #### L [id number] #### [facility] ([facility]) [address] [place] [address] CO2 [Moles/Vol] 28 mmol/L Normal 21-31 [facility] Comment on above: Performed By: #### L [id number] #### [facility] ([facility]) [address] [place] [address] Creatinine [Mass/Vol] 1.29 mg/dL Normal 0.70-1.30 [facility] Comment on above: Performed By: #### L [id number] #### [facility] ([facility]) [address] [place] [address] GLOMERULAR FILTRATION RATE ML/MIN/1.73 SQ M.PREDICTED 63.1 mL/min/1.73m*2 Normal >60.0 [facility] Comment on above: Result Comment: [facility]???s estimated glomerular filtration rate (eGFR) will [...] individuals. Performed By: #### L [id number] #### [facility] ([facility]) [address] [place] [address] Glucose [Mass/Vol] 105 mg/dL High 70-100 [facility] Comment on above: Performed By: #### L [id number] #### [facility] ([facility]) [address] [place] [address] Potassium [Moles/Vol] 4.7 mmol/L Normal 3.5-5.1 [facility] Comment on above: Performed By: #### L [id number] #### [facility] ([facility]) [address] [place] [address] Protein [Mass/Vol] 6.7 g/dL Normal 6.0-8.3 [facility] Comment on above: Performed By: #### L [id number] #### [facility] ([facility]) [address] [facility] [place] [address] Sodium [Moles/Vol] 140 mmol/L Normal 136-145 [facility] Comment on above: Performed By: #### L [id number] #### [facility] ([facility]) [address] [place] [address] Urea nitrogen [Mass/Vol] 18 mg/dL Normal 7-25 [facility] Comment on above: Performed By: #### L [id number] #### [facility] ([facility]) [address] [place] [address] UREA NITROGEN/CREATININE (MASS RATIO) IN SER/PLAS 14.0 Normal [facility] Comment on above: Performed By: #### L [id number] #### [facility] ([facility]) [address] [place] [address] Follow-Upon 06-16-2022 Follow-Up [id number] Vishal Duke 1960 M Date Provider Department Center 06/16/2022 263-[id number] OBI TXP None Family History Problem Relation Age of Onset Alzheimer's disease Mother Coronary artery disease Father Family Status - Relation Status Age at Mother Father Level of Service:55294 CT OFFICE/OUTPT VISIT,PROCEDURE ONLY Reason for Visit and Comments: Kidney Follow-up [] Normal [facility] LIPID PANELon 06-16-2022 CHOL/HDL 3.2 mg/dL Normal [facility] Comment on above: Performed By: #### L [id number] ####[facility] ([facility])[address] [place] [address] Cholesterol [Mass/Vol] 137 mg/dL Normal 120-200 [facility] Comment on above: Performed By: #### L [id number] ####[facility] ([facility])[address] [place] [place] [address] Magnesium [Mass/Vol] 144 mg/dL Normal 40-149 [facility] Comment on above: Result Comment: TRIG LYCERIDE REFERENCE RANGE: 20 YEARS AND OLDER CARDIOVASCULAR RISK LESS THAN 150 mg/dL LOW RISK 150 TO 199 mg/dL BORDERLINE RISK 200 mg/dL AND GREATER HIGH RISK Performed By: #### L [id number] ####[facility] ([facility])[address] [place] [address] Magnesium [Mass/Vol] 65 mg/dL Normal 0-160 [facility] Comment on above: Performed By: #### L [id number] ####[facility] ([facility])[address] [place] [address] Magnesium [Mass/Vol] 43 mg/dL Normal 23-92 [facility] Comment on above: Performed By: #### L [id number] ####[facility] ([facility])[address] [place] [address] NON HDL CHOL. (LDL+VLDL) 94 Normal [facility] Comment on above: Performed By: #### L [id number] ####[facility] ([facility])[address] [place] [address] TOTAL VLDL-C 29 mg/dL Normal 0-40 [facility] Comment on above: Performed By: #### L [id number] ####[facility] ([facility])[address] [place] [address] Labon 06-16-2022 Lab [id number] Vishal Duke 1960 M Date Provider Department [place] 06/16/2022 [id number] DRAW STATION KXT Draw [facility] Family History Problem Relation Age of Onset Alzheimer's disease Mother Coronary artery disease Father Family Status - Relation Status Age at Mother Father Normal [facility] MAGNESIUMon 06-16-2022 Magnesium [Mass/Vol] 1.8 mg/dL Low 1.9-2.7 [facility] Comment on above: Performed By: #### L [id number] #### [facility] ([facility]) [address] [place] [address] PHOSPHORUSon 06-16-2022 Magnesium [Mass/Vol] 3.4 mg/dL Normal 2.5-5.0 [facility] Comment on above: Performed By: #### L [id number] #### [facility] ([facility]) [address] [place] [address] TACROLIMUS LEVELon Tacrolimus (Bld) [Mass/Vol] 7.4 ng/mL Normal 5.0-20.0 [facility] Comment on above: Result Comment: The [employer] Tacrolimus assay is a delayed one-step immunoassay for the quantitative determination of tacrolimus in human whole blood using the chemiluminescent microparticle immunoassay (CMIA) technology with flexible assay protocols, referred to as Chemiflex. Performed By: #### L [id number] #### [facility] ([facility]) [address] [place] [address] URIC ACIDon 06-16-2022 Magnesium [Mass/Vol] 5.5 mg/dL Normal 4.4-7.6 [facility] Comment on above: Performed By: #### L [id number] #### [facility] ([facility]) [address] [place] [address] FK506 (TACROLIMUS) WHOLE BLO ODon 06-04-2022 Tacrolimus (FK506), Blood 5.1 ng/mL Normal 2.0-20.0 [facility] Comment on above: Result Comment: Trou gh (immediately following transplant) 15.0 . Trough (steady state, 2 weeks or more after transplant): 3.0 - 8.0 . Performed by LC-MS/MS technology. Performed By: #### P HOS, URIC, MG, CMP, DBIL, LIPID #### [facility] [address] [place] [id number] Karla Lagos BK VIRUS PCR QUANTon 023 BKV DNA QUANT PCR PLASMA Negative Normal Negative [facility] Comment on above: Result Comment: No B K DNA detected. . The linear range of the assay is 22 - 100,000,000 IU/mL. Performed By: #### P HOS, URIC, MG, CMP, DBIL, LIPID #### [facility] [address] [place] [address] Dr. Karla Lagos Log10 BKV DNA Plasma Normal [facility] Comment on above: Performed By: #### P HOS, URIC, MG, CMP, DBIL, LIPID #### [facility] [address] [place] [address] Dr. Karla Lagos BILIRUBIN CONJUGATED (DIRECT )on 06-01-2022 BILI, CONJUGATED 0.1 mg/dL Normal 0.0-0.2 [facility] Comment on above: Performed By: #### P HOS, URIC, MG, CMP, DBIL, LIPID #### [facility] [address] [place] [address] Dr. Karla Lagos CBC AUTO DIFFon 06-01-2022 BASO # 0.1 103/ul Normal 0.0-0.1 [facility] Comment on above: Performed By: #### P HOS, URIC, MG, CMP, DBIL, LIPID #### [facility] [address] [place] [address] Dr. Karla Lagos Basophils/100 WBC (Bld) 0.9 % Normal 0.2-2.0 [facility] Comment on above: Performed By: #### P HOS, URIC, MG, CMP, DBIL, LIPID #### [facility] [address] [place] [address] Dr. Karla Lagos EO # 0.1 103/ul Normal 0.0-0.7 [facility] Comment on above: Performed By: #### P HOS, URIC, MG, CMP, DBIL, LIPID #### [facility] [address] [place] [address] Dr. Karla Lagos Eosinophils/100 WBC (Bld) 1.6 % Normal 0.9-7.0 [facility] Comment on above: Performed By: #### P HOS, URIC, MG, CMP, DBIL, LIPID #### [facility] [address] [place] [address] Dr. Karla Lagos Erythrocyte distribution width (RBC) [Ratio] 13.4 % Normal 11.0-15.0 [facility] Comment on above: Performed By: #### P HOS, URIC, MG, CMP, DBIL, LIPID #### [facility] [address] [place] [address] Dr. Karla Lagos Hematocrit (Bld) [Volume fraction] 46.3 % Normal 42.0-54.0 [facility] Comment on above: Performed By: #### P HOS, URIC, MG, CMP, DBIL, LIPID #### [facility] [address] [place] [address] Dr. Karla Lagos Hemoglobin (Bld) [Mass/Vol] 15.4 g/dL Normal 14.0-18.0 [facility] Comment on above: Performed By: #### P HOS, URIC, MG, CMP, DBIL, LIPID #### [facility] [address] [place] [address] Dr. Karla Lagos IG # 0.10 10e3/ul Critically high 0.00-0.03 [facility] Comment on above: Performed By: #### P HOS, URIC, MG, CMP, DBIL, LIPID #### [facility] [address] [place] [address] Dr. Karla Lagos IG % 1.3 % Critically high 0.0-0.5 [facility] Comment on above: Performed By: #### P HOS, URIC, MG, CMP, DBIL, LIPID #### [facility] [address] [place] [address] Dr. Karla Lagos LYMPH # 1.0 103/ul Critically low 1.2-3.8 [facility] Comment on above: Performed By: #### P HOS, URIC, MG, CMP, DBIL, LIPID #### [facility] [address] [place] [address] Dr. Karla Lagos Lymphocytes/100 WBC (Bld) 12.8 % Critically low 20.5-60.0 [facility] Comment on above: Performed By: #### P HOS, URIC, MG, CMP, DBIL, LIPID #### [facility] [address] [place] [address] Dr. Karla Lagos MANUAL DIFF REQ NO Normal [facility] Comment on above: Performed By: #### P HOS, URIC, MG, CMP, DBIL, LIPID #### [facility] [address] [place] [address] Dr. Karla Lagos MCH (RBC) [Entitic mass] 30.4 pg Normal 25.9-34.0 [facility] Comment on above: Performed By: #### P HOS, URIC, MG, CMP, DBIL, LIPID #### [facility] [address] [place] [address] Dr. Karla Lagos MCHC (RBC) [Mass/Vol] 33.3 g/dL Normal 29.9-35.2 [facility] Comment on above: Performed By: #### P HOS, URIC, MG, CMP, DBIL, LIPID #### [facility] [facility] [address] [place] [address] Dr. Karla Lagos MCV (RBC) [Entitic vol] 91.3 fL Normal 80.0-94.0 [facility] Comment on above: Performed By: #### P HOS, URIC, MG, CMP, DBIL, LIPID #### [facility] [address] [place] [address] Dr. Karla Lagos MONO # 0.6 103/ul Normal 0.3-0.8 [facility] Comment on above: Performed By: #### P HOS, URIC, MG, CMP, DBIL, LIPID #### [facility] [address] [place] [address] Dr. Karla Lagos Monocytes/100 WBC (Bld) 8.6 % Normal 1.7-12.0 [facility] Comment on above: Performed By: #### P HOS, URIC, MG, CMP, DBIL, LIPID #### [facility] [address] [place] [address] Dr. Karla Lagos NEUT # 5.5 103/ul Normal 1.4-6.5 [facility] Comment on above: Performed By: #### P HOS, URIC, MG, CMP, DBIL, LIPID #### [facility] [address] [address] [address] Karla Lagos Neutrophils/100 WBC (Bld) 74.8 % Normal 43.0-75.0 [facility] Comment on above: Performed By: #### P HOS, URIC, MG, CMP, DBIL, LIPID #### [facility] [address] [place] [address] Dr. Karla Lagos Platelet mean volume (Bld) [Entitic vol] 9.6 fL Normal 9.5-13.5 [facility] Comment on above: Performed By: #### P HOS, URIC, MG, CMP, DBIL, LIPID #### [facility] [address] [place] [address] Dr. Karla Lagos PLT 312 103/ul Normal 150-450 [facility] Comment on above: Performed By: #### P HOS, URIC, MG, CMP, DBIL, LIPID #### [facility] [address] [place] [address] Dr. Karla Lagos RBC 5.07 106/ul Normal 4.70-6.10 [facility] Comment on above: Performed By: #### P HOS, URIC, MG, CMP, DBIL, LIPID #### [facility] [address] [place] [address] Dr. Karla Lagos WBC 7.4 103/ul Normal 4.0-11.0 [facility] Comment on above: Performed By: #### P HOS, URIC, MG, CMP, DBIL, LIPID #### [facility] [address] [place] [address] Dr. Karla Lagos LIPID PROFILEon 06-01-2022 CHOL-HDL RATIO NORM SEE BELOW Normal [facility] Comment on above: Result Comment: 3.3 - 4.4 LOW RISK 4.4 - 7.1 AVERAGE RISK 7.1 - 11.0 MODERATE RISK >11.0 HIGH RISK Performed By: #### P HOS, URIC, MG, CMP, DBIL, LIPID #### [facility] [address] [place] [address] Dr. Karla Lagos Cholesterol [Mass/Vol] 108 mg/dL Normal <=200 [facility] Comment on above: Performed By: #### P HOS, URIC, MG, CMP, DBIL, LIPID #### [facility] [address] [address] [address] Karla Lagos Cholesterol in HDL [Mass/Vol] 36 mg/dL Critically low 40-60 [facility] Comment on above: Performed By: #### P HOS, URIC, MG, CMP, DBIL, LIPID #### [facility] [address] [address] [address] Karla Lagos Cholesterol in LDL [Mass/Vol] 58.4 mg/dL Normal [facility] Comment on above: Performed By: #### P HOS, URIC, MG, CMP, DBIL, LIPID #### [facility] [address] [place] [address] Dr. Karla Lagos Cholesterol.total/C holesterol in HDL [Mass ratio] 3.0 {ratio} Normal [facility] Comment on above: Performed By: #### P HOS, URIC, MG, CMP, DBIL, LIPID #### [facility] [address] [address] [address] Karla Lagos HDL NORMAL > or = 60 mg/dl - LO W CARDIOVASCULAR RISK <40 mg/dl - HIGH CARDIOVASCULAR RISK Normal [facility] Comment on above: Performed By: #### P HOS, URIC, MG, CMP, DBIL, LIPID #### [facility] [address] [place] [address] Dr. Karla Lagos LDL CALC NORMAL SEE BELOW Normal [facility] Comment on above: Result Comment: <100 mg/dl OPTIMAL 100 - 129 mg/dl NEAR OR ABOVE OPTIMAL 130 - 159 mg/dl BORDERLINE HIGH 160 - 189 mg/dl HIGH >190 mg/dl VERY HIGH Performed By: #### P HOS, URIC, MG, CMP, DBIL, LIPID #### [facility] [address] [address] [address] Karla Lagos Triglyceride [Mass/Vol] 68 mg/dL Normal <=150 [facility] Comment on above: Performed By: #### P HOS, URIC, MG, CMP, DBIL, LIPID #### [facility] [address] [place] [address] Dr. Karla Lagos VLDL CALC 13.6 mg/dL Normal [facility] Comment on above: Performed By: #### P HOS, URIC, MG, CMP, DBIL, LIPID #### [facility] [address] [place] [address] Dr. Karla Lagos MAGNESIUMon 06-01-2022 Magnesium [Mass/Vol] 1.7 mg/dL Critically low 1.8-2.4 [facility] Comment on above: Performed By: #### P HOS, URIC, MG, CMP, DBIL, LIPID #### [facility] [address] [place] [address] Dr. Karla Lagos PHOSPHORUSon 06-01-2022 Phosphate [Mass/Vol] 3.7 mg/dL Normal 2.6-4.7 [facility] Comment on above: Performed By: #### P HOS, URIC, MG, CMP, DBIL, LIPID #### [facility] [address] [place] [address] Dr. Karla Lagos PROF 14(COMP METB)on 023 Albumin [Mass/Vol] 3.4 g/dL Normal 3.4-5.0 [facility] Comment on above: Performed By: #### P HOS, URIC, MG, CMP, DBIL, LIPID #### [facility] [address] [place] [address] Dr. Karla Lagos Albumin/Globulin [Mass ratio] 1.0 {ratio} Normal [facility] Comment on above: Performed By: #### P HOS, URIC, MG, CMP, DBIL, LIPID #### [facility] [address] [place] [address] Dr. Karla Lagos ALP [Catalytic activity/Vol] 92 U/L Normal 46-116 [facility] Comment on above: Performed By: #### P HOS, URIC, MG, CMP, DBIL, LIPID #### [facility] [address] [place] [address] Dr. Karla Lagos ALT [Catalytic activity/Vol] 33 U/L Normal 16-63 [facility] Comment on above: Performed By: #### P HOS, URIC, MG, CMP, DBIL, LIPID #### [facility] [address] [address] [address] Karla Lagos Anion gap [Moles/Vol] 12.7 mmol/L Normal [facility] Comment on above: Performed By: #### P HOS, URIC, MG, CMP, DBIL, LIPID #### [facility] [address] [place] [address] Dr. Karla Lagos AST [Catalytic activity/Vol] 21 U/L Normal 15-37 [facility] Comment on above: Performed By: #### P HOS, URIC, MG, CMP, DBIL, LIPID #### [facility] [address] [place] [address] Dr. Karla Lagos Bilirubin [Mass/Vol] 0.4 mg/dL Normal 0.2-1.0 [facility] Comment on above: Performed By: #### P HOS, URIC, MG, CMP, DBIL, LIPID #### [facility] [address] [place] [address] Dr. Karla Lagos Calcium [Mass/Vol] 9.0 mg/dL Normal 8.5-10.1 [facility] Comment on above: Performed By: #### P HOS, URIC, MG, CMP, DBIL, LIPID #### [facility] [address] [place] [address] Dr. Karla Lagos Chloride [Moles/Vol] 104 mmol/L Normal 98-107 [facility] Comment on above: Performed By: #### P HOS, URIC, MG, CMP, DBIL, LIPID #### [facility] [address] [place] [address] Dr. Karla Lagos CO2 [Moles/Vol] 28.7 mmol/L Normal 21.0-32.0 [facility] Comment on above: Performed By: #### P HOS, URIC, MG, CMP, DBIL, LIPID #### [facility] [address] [place] [address] Dr. Karla Lagos Creatinine [Mass/Vol] 1.15 mg/dL Normal 0.70-1.30 [facility] Comment on above: Performed By: #### P HOS, URIC, MG, CMP, DBIL, LIPID #### [facility] [address] [address] [address] Karla Lagos EGFR-AF QATARI >60 Normal >=60 [facility] Comment on above: Performed By: #### P HOS, URIC, MG, CMP, DBIL, LIPID #### [facility] [address] [address] [address] Karla Lagos EGFR-NON AF QATARI >60 Normal >=60 [facility] Comment on above: Performed By: #### P HOS, URIC, MG, CMP, DBIL, LIPID #### [facility] [address] [address] [address] Karla Lagos Globulin (S) [Mass/Vol] 3.3 g/dL Normal [facility] Comment on above: Performed By: #### P HOS, URIC, MG, CMP, DBIL, LIPID #### [facility] [address] [address] [address] Karla Lagos Glucose [Mass/Vol] 112 mg/dL Critically high 74-106 [facility] Comment on above: Performed By: #### P HOS, URIC, MG, CMP, DBIL, LIPID #### [facility] [address] [address] [address] Karla Lagos Potassium [Moles/Vol] 4.4 mmol/L Normal 3.5-5.1 [facility] Comment on above: Performed By: #### P HOS, URIC, MG, CMP, DBIL, LIPID #### [facility] [address] [address] [address] Karla Lagos Protein [Mass/Vol] 6.7 g/dL Normal 6.4-8.2 [facility] Comment on above: Performed By: #### P HOS, URIC, MG, CMP, DBIL, LIPID #### [facility] [address] [address] [address] Karla Lagos Sodium [Moles/Vol] 141 mmol/L Normal 136-145 [facility] Comment on above: Performed By: #### P HOS, URIC, MG, CMP, DBIL, LIPID #### [facility] [address] [address] [address] Karla Lagos Urea nitrogen [Mass/Vol] 17.0 mg/dL Normal 7.0-18.0 [facility] Comment on above: Performed By: #### P HOS, URIC, MG, CMP, DBIL, LIPID #### [facility] [address] [place] [address] Dr. Karla Lagos Urea nitrogen/Creatinine [Mass ratio] 14.8 mg/mg Normal [facility] Comment on above: Performed By: #### P HOS, URIC, MG, CMP, DBIL, LIPID #### [facility] [address] [place] [address] Dr. Karla Lagos URIC ACID SERUMon 06-01-2022 Urate [Mass/Vol] 5.3 mg/dL Normal 3.5-7.2 [facility] Comment on above: Performed By: #### P HOS, URIC, MG, CMP, DBIL, LIPID #### [facility] [address] [place] [address] Dr. Karla Lagos NM STRESS/REST MULTIon 05-30 NM STRESS/REST MULTI Patient: VISHAL DUKEJessica Exam Date: 05/30/2022 : 1960 Gender:M Ordering : DR FEDERICO CHESTER M.D. Admission #: [id number] Family : Order #: [id number] CLICK HERE TO VIEW EXAM RADIOLOGY REPORT [...] Basal inferoseptal. Basal inferior. Mid-anteroseptal. Mid-inferoseptal. Mid-inferior. [place]. SIZE: Large (5 or more segments). SEVERITY: [...] MD on 06/01/2022 at 06:10 Normal [facility] FK506 (TACROLIMUS) WHOLE BLO ODon 05-06-2022 Tacrolimus (FK506), Blood 5.4 ng/mL Normal 2.0-20.0 [facility] Comment on above: Result Comment: Trou gh (immediately following transplant) 15.0 . Trough (steady state, 2 weeks or more after transplant): 3.0 - 8.0 . Performed by LC-MS/MS technology. Performed By: #### P HOS, URIC, MG, CMP, DBIL, LIPID #### [facility] [address] [place] [address] Dr. Karla Lagos BK VIRUS PCR QUANTon 023 BKV DNA QUANT PCR PLASMA Negative Normal Negative [facility] Comment on above: Result Comment: No B K DNA detected. . The linear range of the assay is 22 - 100,000,000 IU/mL. Performed By: #### P HOS, URIC, MG, CMP, DBIL, LIPID #### [facility] [address] [place] [address] Dr. Karla Lagos Log10 BKV DNA Plasma Normal [facility] Comment on above: Performed By: #### P HOS, URIC, MG, CMP, DBIL, LIPID #### [facility] [address] [place] [address] Dr. Karla Lagos BILIRUBIN CONJUGATED (DIRECT )on 05-03-2022 BILI, CONJUGATED 0.2 mg/dL Normal 0.0-0.2 [facility] Comment on above: Performed By: #### P HOS, URIC, MG, CMP, DBIL, LIPID #### [facility] [address] [place] [address] Dr. Karla Lagos CBC AUTO DIFFon 05-03-2022 BASO # 0.1 103/ul Normal 0.0-0.1 [facility] Comment on above: Performed By: #### P HOS, URIC, MG, CMP, DBIL, LIPID #### [facility] [address] [place] [address] Dr. Karla Lagos Basophils/100 WBC (Bld) 0.7 % Normal 0.2-2.0 [facility] Comment on above: Performed By: #### P HOS, URIC, MG, CMP, DBIL, LIPID #### [facility] [address] [place] [address] Dr. Karla Lagos EO # 0.1 103/ul Normal 0.0-0.7 [facility] Comment on above: Performed By: #### P HOS, URIC, MG, CMP, DBIL, LIPID #### [facility] [address] [place] [address] Dr. Karla Lagos Eosinophils/100 WBC (Bld) 1.6 % Normal 0.9-7.0 [facility] Comment on above: Performed By: #### P HOS, URIC, MG, CMP, DBIL, LIPID #### [facility] [address] [place] [address] Dr. Karla Lagos Erythrocyte distribution width (RBC) [Ratio] 13.7 % Normal 11.0-15.0 [facility] Comment on above: Performed By: #### P HOS, URIC, MG, CMP, DBIL, LIPID #### [facility] [address] [place] [address] Dr. Karla Lagos Hematocrit (Bld) [Volume fraction] 49.1 % Normal 42.0-54.0 [facility] Comment on above: Performed By: #### P HOS, URIC, MG, CMP, DBIL, LIPID #### [facility] [address] [place] [address] Dr. Karla Lagos Hemoglobin (Bld) [Mass/Vol] 16.5 g/dL Normal 14.0-18.0 [facility] Comment on above: Performed By: #### P HOS, URIC, MG, CMP, DBIL, LIPID #### [facility] [address] [place] [address] Dr. Karla Lagos IG # 0.05 10e3/ul Critically high 0.00-0.03 [facility] Comment on above: Performed By: #### P HOS, URIC, MG, CMP, DBIL, LIPID #### [facility] [address] [place] [address] Dr. Karla Lagos IG % 0.7 % Critically high 0.0-0.5 [facility] Comment on above: Performed By: #### P HOS, URIC, MG, CMP, DBIL, LIPID #### [facility] [address] [place] [address] Dr. Karla Lagos LYMPH # 1.0 103/ul Critically low 1.2-3.8 [facility] Comment on above: Performed By: #### P HOS, URIC, MG, CMP, DBIL, LIPID #### [facility] [address] [place] [address] Dr. Karla Lagos Lymphocytes/100 WBC (Bld) 13.7 % Critically low 20.5-60.0 [facility] Comment on above: Performed By: #### P HOS, URIC, MG, CMP, DBIL, LIPID #### [facility] [address] [place] [address] Dr. Karla Lagos MANUAL DIFF REQ NO Normal [facility] Comment on above: Performed By: #### P HOS, URIC, MG, CMP, DBIL, LIPID #### [facility] [address] [place] [address] Dr. Karla Lagos MCH (RBC) [Entitic mass] 30.9 pg Normal 25.9-34.0 [facility] Comment on above: Performed By: #### P HOS, URIC, MG, CMP, DBIL, LIPID #### [facility] [address] [place] [address] Dr. Karla Lagos MCHC (RBC) [Mass/Vol] 33.6 g/dL Normal 29.9-35.2 [facility] Comment on above: Performed By: #### P HOS, URIC, MG, CMP, DBIL, LIPID #### [facility] [address] [place] [address] Dr. Karla Lagos MCV (RBC) [Entitic vol] 91.9 fL Normal 80.0-94.0 [facility] Comment on above: Performed By: #### P HOS, URIC, MG, CMP, DBIL, LIPID #### [facility] [address] [place] [address] Dr. Karla Lagos MONO # 0.7 103/ul Normal 0.3-0.8 [facility] Comment on above: Performed By: #### P HOS, URIC, MG, CMP, DBIL, LIPID #### [facility] [address] [place] [address] Dr. aKrla Lagos Monocytes/100 WBC (Bld) 9.7 % Normal 1.7-12.0 [facility] Comment on above: Performed By: #### P HOS, URIC, MG, CMP, DBIL, LIPID #### [facility] [address] [place] [address] Dr. Karla Lagos NEUT # 5.2 103/ul Normal 1.4-6.5 [facility] Comment on above: Performed By: #### P HOS, URIC, MG, CMP, DBIL, LIPID #### [facility] [address] [place] [address] Dr. Karla Lagos Neutrophils/100 WBC (Bld) 73.6 % Normal 43.0-75.0 [facility] Comment on above: Performed By: #### P HOS, URIC, MG, CMP, DBIL, LIPID #### [facility] [address] [address] [address] Karla Lagos Platelet mean volume (Bld) [Entitic vol] 10.2 fL Normal 9.5-13.5 [facility] Comment on above: Performed By: #### P HOS, URIC, MG, CMP, DBIL, LIPID #### [facility] [address] [address] [address] Karla Lagos PLT 218 103/ul Normal 150-450 [facility] Comment on above: Performed By: #### P HOS, URIC, MG, CMP, DBIL, LIPID #### [facility] [address] [address] [address] Karla Lagos RBC 5.34 106/ul Normal 4.70-6.10 [facility] Comment on above: Performed By: #### P HOS, URIC, MG, CMP, DBIL, LIPID #### [facility] [address] [place] [address] Dr. Karla Lagos WBC 7.1 103/ul Normal 4.0-11.0 [facility] Comment on above: Performed By: #### P HOS, URIC, MG, CMP, DBIL, LIPID #### [facility] [address] [address] [address] Karla Lagos LIPID PROFILEon 05-03-2022 CHOL-HDL RATIO NORM SEE BELOW Normal [facility] Comment on above: Result Comment: 3.3 - 4.4 LOW RISK 4.4 - 7.1 AVERAGE RISK 7.1 - 11.0 MODERATE RISK >11.0 HIGH RISK Performed By: #### M G, CMP, URIC, DBIL, LIPID, PHOS #### [facility] [address] [place] [address] Dr. Karla Lagos Cholesterol [Mass/Vol] 121 mg/dL Normal <=200 [facility] Comment on above: Performed By: #### M G, CMP, URIC, DBIL, LIPID, PHOS #### [facility] [address] [address] [address] Karla Lagos Cholesterol in HDL [Mass/Vol] 44 mg/dL Normal 40-60 [facility] Comment on above: Performed By: #### M G, CMP, URIC, DBIL, LIPID, PHOS #### [facility] [address] [address] [address] Karla Lagos Cholesterol in LDL [Mass/Vol] 40.0 mg/dL Normal [facility] Comment on above: Performed By: #### M G, CMP, URIC, DBIL, LIPID, PHOS #### [facility] [address] [address] [address] Karla Lagos Cholesterol.total/C holesterol in HDL [Mass ratio] 2.8 {ratio} Normal [facility] Comment on above: Performed By: #### M G, CMP, URIC, DBIL, LIPID, PHOS #### [facility] [address] [address] [address] Karla Lagos HDL NORMAL > or = 60 mg/dl - LO W CARDIOVASCULAR RISK <40 mg/dl - HIGH CARDIOVASCULAR RISK Normal [facility] Comment on above: Performed By: #### M G, CMP, URIC, DBIL, LIPID, PHOS #### [facility] [address] [place] [address] Dr. Karla Lagos LDL CALC NORMAL SEE BELOW Normal [facility] Comment on above: Result Comment: <100 mg/dl OPTIMAL 100 - 129 mg/dl NEAR OR ABOVE OPTIMAL 130 - 159 mg/dl BORDERLINE HIGH 160 - 189 mg/dl HIGH >190 mg/dl VERY HIGH Performed By: #### M G, CMP, URIC, DBIL, LIPID, PHOS #### [facility] [address] [address] [address] Karla Lagos Triglyceride [Mass/Vol] 185 mg/dL Critically high <=150 [facility] Comment on above: Performed By: #### M G, CMP, URIC, DBIL, LIPID, PHOS #### [facility] [address] [address] [address] Karla Lagos VLDL CALC 37.0 mg/dL Normal [facility] Comment on above: Performed By: #### M G, CMP, URIC, DBIL, LIPID, PHOS #### [facility] [address] [address] [address] Karla Lagos MAGNESIUMon 05-03-2022 Magnesium [Mass/Vol] 1.6 mg/dL Critically low 1.8-2.4 [facility] Comment on above: Performed By: #### P HOS, URIC, MG, CMP, DBIL, LIPID #### [facility] [address] [address] [address] Karla Lagos PHOSPHORUSon 05-03-2022 Phosphate [Mass/Vol] 3.6 mg/dL Normal 2.6-4.7 [facility] Comment on above: Performed By: #### P HOS, URIC, MG, CMP, DBIL, LIPID #### [facility] [address] [address] [address] Karla Lagos PROF 14(COMP METB)on 023 Albumin [Mass/Vol] 3.9 g/dL Normal 3.4-5.0 [facility] Comment on above: Performed By: #### M G, CMP, URIC, DBIL, LIPID, PHOS #### [facility] [address] [address] [address] Karla Lagos Albumin/Globulin [Mass ratio] 1.3 {ratio} Normal [facility] Comment on above: Performed By: #### M G, CMP, URIC, DBIL, LIPID, PHOS #### [facility] [facility] [address] [address] [address] Karla Lagos ALP [Catalytic activity/Vol] 80 U/L Normal 46-116 [facility] Comment on above: Performed By: #### M G, CMP, URIC, DBIL, LIPID, PHOS #### [facility] [address] [address] [address] Karla Lagos ALT [Catalytic activity/Vol] 41 U/L Normal 16-63 [facility] Comment on above: Performed By: #### M G, CMP, URIC, DBIL, LIPID, PHOS #### [facility] [address] [address] [address] Karla Lagos Anion gap [Moles/Vol] 11.9 mmol/L Normal [facility] Comment on above: Performed By: #### M G, CMP, URIC, DBIL, LIPID, PHOS #### [facility] [address] [place] [address] Dr. Karla Lagos AST [Catalytic activity/Vol] 24 U/L Normal 15-37 [facility] Comment on above: Performed By: #### M G, CMP, URIC, DBIL, LIPID, PHOS #### [facility] [address] [place] [address] Dr. Karla Lagos Bilirubin [Mass/Vol] 0.7 mg/dL Normal 0.2-1.0 [facility] Comment on above: Performed By: #### M G, CMP, URIC, DBIL, LIPID, PHOS #### [facility] [address] [place] [address] Dr. Karla Lagos Calcium [Mass/Vol] 9.2 mg/dL Normal 8.5-10.1 [facility] Comment on above: Performed By: #### M G, CMP, URIC, DBIL, LIPID, PHOS #### [facility] [address] [place] [address] Dr. Karla Lagos Chloride [Moles/Vol] 103 mmol/L Normal 98-107 [facility] Comment on above: Performed By: #### M G, CMP, URIC, DBIL, LIPID, PHOS #### [facility] [address] [place] [address] Dr. Karla Lagos CO2 [Moles/Vol] 28.1 mmol/L Normal 21.0-32.0 [facility] Comment on above: Performed By: #### M G, CMP, URIC, DBIL, LIPID, PHOS #### [facility] [address] [place] [address] Dr. Karla Lagos Creatinine [Mass/Vol] 1.19 mg/dL Normal 0.70-1.30 [facility] Comment on above: Performed By: #### M G, CMP, URIC, DBIL, LIPID, PHOS #### [facility] [address] [place] [address] Dr. Karla Lagos EGFR-AF QATARI >60 Normal >=60 [facility] Comment on above: Performed By: #### M G, CMP, URIC, DBIL, LIPID, PHOS #### [facility] [address] [address] [address] Karla Lagos EGFR-NON AF QATARI >60 Normal >=60 [facility] Comment on above: Performed By: #### M G, CMP, URIC, DBIL, LIPID, PHOS #### [facility] [address] [address] [address] Karla Lagos Globulin (S) [Mass/Vol] 2.9 g/dL Normal [facility] Comment on above: Performed By: #### M G, CMP, URIC, DBIL, LIPID, PHOS #### [facility] [address] [place] [address] Dr. Karla Lagos Glucose [Mass/Vol] 119 mg/dL Critically high 74-106 [facility] Comment on above: Performed By: #### M G, CMP, URIC, DBIL, LIPID, PHOS #### [facility] [address] [address] [address] Karla Lagos Potassium [Moles/Vol] 4.0 mmol/L Normal 3.5-5.1 [facility] Comment on above: Performed By: #### M G, CMP, URIC, DBIL, LIPID, PHOS #### [facility] [address] [place] [address] Dr. Karla Lagos Protein [Mass/Vol] 6.8 g/dL Normal 6.4-8.2 [facility] Comment on above: Performed By: #### M G, CMP, URIC, DBIL, LIPID, PHOS #### [facility] [address] [address] [address] Karla Lagos Sodium [Moles/Vol] 139 mmol/L Normal 136-145 [facility] Comment on above: Performed By: #### M G, CMP, URIC, DBIL, LIPID, PHOS #### [facility] [address] [place] [address] Dr. Karla Lagos Urea nitrogen [Mass/Vol] 20.0 mg/dL Critically high 7.0-18.0 [facility] Comment on above: Performed By: #### M G, CMP, URIC, DBIL, LIPID, PHOS #### [facility] [address] [address] [address] Karla Lagos Urea nitrogen/Creatinine [Mass ratio] 16.8 mg/mg Normal [facility] Comment on above: Performed By: #### M G, CMP, URIC, DBIL, LIPID, PHOS #### [facility] [address] [address] [address] Karla Lagos URIC ACID SERUMon 05-03-2022 Urate [Mass/Vol] 5.5 mg/dL Normal 3.5-7.2 [facility] Comment on above: Performed By: #### M G, CMP, URIC, DBIL, LIPID, PHOS #### [facility] [address] [place] [address] Dr. Karla Lagos FK506 (TACROLIMUS) WHOLE BLO ODon 04-17-2022 Tacrolimus (FK506), Blood 6.1 ng/mL Normal 2.0-20.0 [facility] Comment on above: Result Comment: Trou gh (immediately following transplant) 15.0 . Trough (steady state, 2 weeks or more after transplant): 3.0 - 8.0 . Performed by LC-MS/MS technology. Performed By: #### P HOS, URIC, MG, CMP, DBIL, LIPID #### [facility] [address] [place] [address] Dr. Karla Lagos FK506 (TACROLIMUS) WHOLE BLO ODon 03-28-2022 Tacrolimus (FK506), Blood 8.8 ng/mL Normal 2.0-20.0 [facility] Comment on above: Result Comment: Trou gh (immediately following transplant) 15.0 . Trough (steady state, 2 weeks or more after transplant): 3.0 - 8.0 . Performed by LC-MS/MS technology. Performed By: #### P HOS, URIC, MG, CMP, DBIL, LIPID #### [facility] [address] [place] [address] Dr. Karla Lagos BILIRUBIN CONJUGATED (DIRECT )on 03-25-2022 BILI, CONJUGATED 0.2 mg/dL Normal 0.0-0.2 [facility] Comment on above: Performed By: #### P HOS, URIC, MG, CMP, DBIL, LIPID #### [facility] [address] [place] [address] Dr. Karla Lagos CBC AUTO DIFFon 03-25-2022 BASO # 0.1 103/ul Normal 0.0-0.1 [facility] Comment on above: Performed By: #### P HOS, URIC, MG, CMP, DBIL, LIPID #### [facility] [address] [place] [address] Dr. Karla Lagos Basophils/100 WBC (Bld) 0.7 % Normal 0.2-2.0 [facility] Comment on above: Performed By: #### P HOS, URIC, MG, CMP, DBIL, LIPID #### [facility] [address] [place] [address] Dr. Karla Lagos EO # 0.1 103/ul Normal 0.0-0.7 [facility] Comment on above: Performed By: #### P HOS, URIC, MG, CMP, DBIL, LIPID #### [facility] [address] [place] [address] Dr. Karla Lagos Eosinophils/100 WBC (Bld) 1.4 % Normal 0.9-7.0 [facility] Comment on above: Performed By: #### P HOS, URIC, MG, CMP, DBIL, LIPID #### [facility] [address] [place] [address] Dr. Karla Lagos Erythrocyte distribution width (RBC) [Ratio] 13.6 % Normal 11.0-15.0 [facility] Comment on above: Performed By: #### P HOS, URIC, MG, CMP, DBIL, LIPID #### [facility] [address] [place] [address] Dr. Karla Lagos Hematocrit (Bld) [Volume fraction] 51.5 % Normal 42.0-54.0 [facility] Comment on above: Performed By: #### P HOS, URIC, MG, CMP, DBIL, LIPID #### [facility] [address] [place] [address] Dr. Karla Lagos Hemoglobin (Bld) [Mass/Vol] 16.8 g/dL Normal 14.0-18.0 [facility] Comment on above: Performed By: #### P HOS, URIC, MG, CMP, DBIL, LIPID #### [facility] [address] [place] [address] Dr. Karla Lagos IG # 0.06 10e3/ul Critically high 0.00-0.03 [facility] Comment on above: Performed By: #### P HOS, URIC, MG, CMP, DBIL, LIPID #### [facility] [address] [address] [address] Karla Lagos IG % 0.8 % Critically high 0.0-0.5 [facility] Comment on above: Performed By: #### P HOS, URIC, MG, CMP, DBIL, LIPID #### [facility] [address] [place] [address] Dr. Karla Lagos LYMPH # 1.1 103/ul Critically low 1.2-3.8 [facility] Comment on above: Performed By: #### P HOS, URIC, MG, CMP, DBIL, LIPID #### [facility] [address] [address] [address] Karla Lagos Lymphocytes/100 WBC (Bld) 14.8 % Critically low 20.5-60.0 [facility] Comment on above: Performed By: #### P HOS, URIC, MG, CMP, DBIL, LIPID #### [facility] [address] [place] [address] Dr. Karla Lagos MANUAL DIFF REQ NO Normal [facility] Comment on above: Performed By: #### P HOS, URIC, MG, CMP, DBIL, LIPID #### [facility] [address] [place] [address] Dr. Karla Lagos MCH (RBC) [Entitic mass] 30.2 pg Normal 25.9-34.0 [facility] Comment on above: Performed By: #### P HOS, URIC, MG, CMP, DBIL, LIPID #### [facility] [address] [place] [address] Dr. Karla Lagos MCHC (RBC) [Mass/Vol] 32.6 g/dL Normal 29.9-35.2 [facility] Comment on above: Performed By: #### P HOS, URIC, MG, CMP, DBIL, LIPID #### [facility] [address] [place] [address] Dr. Karla Lagos MCV (RBC) [Entitic vol] 92.6 fL Normal 80.0-94.0 [facility] Comment on above: Performed By: #### P HOS, URIC, MG, CMP, DBIL, LIPID #### [facility] [address] [place] [address] Dr. Karla Lagos MONO # 0.7 103/ul Normal 0.3-0.8 [facility] Comment on above: Performed By: #### P HOS, URIC, MG, CMP, DBIL, LIPID #### [facility] [address] [place] [address] Dr. Karla Lagos Monocytes/100 WBC (Bld) 10.0 % Normal 1.7-12.0 [facility] Comment on above: Performed By: #### P HOS, URIC, MG, CMP, DBIL, LIPID #### [facility] [address] [place] [address] Dr. Karla Lagos NEUT # 5.2 103/ul Normal 1.4-6.5 [facility] Comment on above: Performed By: #### P HOS, URIC, MG, CMP, DBIL, LIPID #### [facility] [address] [place] [address] Dr. Karla Lagos Neutrophils/100 WBC (Bld) 72.3 % Normal 43.0-75.0 [facility] Comment on above: Performed By: #### P HOS, URIC, MG, CMP, DBIL, LIPID #### [facility] [address] [place] [address] Dr. Karla Lagos Platelet mean volume (Bld) [Entitic vol] 10.4 fL Normal 9.5-13.5 [facility] Comment on above: Performed By: #### P HOS, URIC, MG, CMP, DBIL, LIPID #### [facility] [address] [address] [address] Karla Lagos PLT 245 103/ul Normal 150-450 [facility] Comment on above: Performed By: #### P HOS, URIC, MG, CMP, DBIL, LIPID #### [facility] [address] [address] [address] Karla Lagos RBC 5.56 106/ul Normal 4.70-6.10 [facility] Comment on above: Performed By: #### P HOS, URIC, MG, CMP, DBIL, LIPID #### [facility] [address] [address] [address] Karla Lagos WBC 7.2 103/ul Normal 4.0-11.0 [facility] Comment on above: Performed By: #### P HOS, URIC, MG, CMP, DBIL, LIPID #### [facility] [address] [place] [address] Dr. Karla Lagos LIPID PROFILEon 03-25-2022 CHOL-HDL RATIO NORM SEE BELOW Normal [facility] Comment on above: Result Comment: 3.3 - 4.4 LOW RISK 4.4 - 7.1 AVERAGE RISK 7.1 - 11.0 MODERATE RISK >11.0 HIGH RISK Performed By: #### P HOS, URIC, MG, CMP, DBIL, LIPID #### [facility] [address] [address] [address] Karla Lagos Cholesterol [Mass/Vol] 124 mg/dL Normal <=200 [facility] Comment on above: Performed By: #### P HOS, URIC, MG, CMP, DBIL, LIPID #### [facility] [address] [address] [address] Karla Lagos Cholesterol in HDL [Mass/Vol] 47 mg/dL Normal 40-60 [facility] Comment on above: Performed By: #### P HOS, URIC, MG, CMP, DBIL, LIPID #### [facility] [address] [address] [address] Karla Lagos Cholesterol in LDL [Mass/Vol] 47.4 mg/dL Normal [facility] Comment on above: Performed By: #### P HOS, URIC, MG, CMP, DBIL, LIPID #### [facility] [address] [address] [address] Karla Lagos Cholesterol.total/C holesterol in HDL [Mass ratio] 2.6 {ratio} Normal [facility] Comment on above: Performed By: #### P HOS, URIC, MG, CMP, DBIL, LIPID #### [facility] [address] [address] [address] Karla Lagos HDL NORMAL > or = 60 mg/dl - LO W CARDIOVASCULAR RISK <40 mg/dl - HIGH CARDIOVASCULAR RISK Normal [facility] Comment on above: Performed By: #### P HOS, URIC, MG, CMP, DBIL, LIPID #### [facility] [address] [address] [address] Karla Lagos LDL CALC NORMAL SEE BELOW Normal [facility] Comment on above: Result Comment: <100 mg/dl OPTIMAL 100 - 129 mg/dl NEAR OR ABOVE OPTIMAL 130 - 159 mg/dl BORDERLINE HIGH 160 - 189 mg/dl HIGH >190 mg/dl VERY HIGH Performed By: #### P HOS, URIC, MG, CMP, DBIL, LIPID #### [facility] [address] [address] [address] Karla Lagos Triglyceride [Mass/Vol] 148 mg/dL Normal <=150 [facility] Comment on above: Performed By: #### P HOS, URIC, MG, CMP, DBIL, LIPID #### [facility] [address] [address] [address] Karla Lagos VLDL CALC 29.6 mg/dL Normal [facility] Comment on above: Performed By: #### P HOS, URIC, MG, CMP, DBIL, LIPID #### [facility] [address] [address] [address] Karla Lagos MAGNESIUMon 03-25-2022 Magnesium [Mass/Vol] 1.5 mg/dL Critically low 1.8-2.4 [facility] Comment on above: Performed By: #### P HOS, URIC, MG, CMP, DBIL, LIPID #### [facility] [address] [address] [address] Karla Lagos PHOSPHORUSon 03-25-2022 Phosphate [Mass/Vol] 3.8 mg/dL Normal 2.6-4.7 [facility] Comment on above: Performed By: #### P HOS, URIC, MG, CMP, DBIL, LIPID #### [facility] [address] [place] [address] Dr. Karla Lagos PROF 14(COMP METB)on 022 Albumin [Mass/Vol] 4.1 g/dL Normal 3.4-5.0 [facility] Comment on above: Performed By: #### P HOS, URIC, MG, CMP, DBIL, LIPID #### [facility] [address] [place] [address] Dr. Karla Lagos Albumin/Globulin [Mass ratio] 1.3 {ratio} Normal [facility] Comment on above: Performed By: #### P HOS, URIC, MG, CMP, DBIL, LIPID #### [facility] [address] [place] [address] Dr. Karla Lagos ALP [Catalytic activity/Vol] 76 U/L Normal 46-116 [facility] Comment on above: Performed By: #### P HOS, URIC, MG, CMP, DBIL, LIPID #### [facility] [address] [place] [address] Dr. Karla Lagos ALT [Catalytic activity/Vol] 36 U/L Normal 16-63 [facility] Comment on above: Performed By: #### P HOS, URIC, MG, CMP, DBIL, LIPID #### [facility] [address] [place] [address] Dr. Karla Lagos Anion gap [Moles/Vol] 12.4 mmol/L Normal [facility] Comment on above: Performed By: #### P HOS, URIC, MG, CMP, DBIL, LIPID #### [facility] [address] [place] [address] Dr. Karla Lagos AST [Catalytic activity/Vol] 21 U/L Normal 15-37 [facility] Comment on above: Performed By: #### P HOS, URIC, MG, CMP, DBIL, LIPID #### [facility] [address] [place] [address] Dr. Karla Lagos Bilirubin [Mass/Vol] 0.6 mg/dL Normal 0.2-1.0 [facility] Comment on above: Performed By: #### P HOS, URIC, MG, CMP, DBIL, LIPID #### [facility] [address] [place] [address] Dr. Karla Lagos Calcium [Mass/Vol] 9.4 mg/dL Normal 8.5-10.1 [facility] Comment on above: Performed By: #### P HOS, URIC, MG, CMP, DBIL, LIPID #### [facility] [address] [place] [address] Dr. Karla Lagos Chloride [Moles/Vol] 103 mmol/L Normal 98-107 [facility] Comment on above: Performed By: #### P HOS, URIC, MG, CMP, DBIL, LIPID #### [facility] [address] [place] [address] Dr. Karla Lagos CO2 [Moles/Vol] 30.6 mmol/L Normal 21.0-32.0 [facility] Comment on above: Performed By: #### P HOS, URIC, MG, CMP, DBIL, LIPID #### [facility] [address] [place] [address] Dr. Karla Lagos Creatinine [Mass/Vol] 1.34 mg/dL Critically high 0.70-1.30 [facility] Comment on above: Performed By: #### P HOS, URIC, MG, CMP, DBIL, LIPID #### [facility] [address] [place] [address] Dr. Karla Lagos EGFR-AF QATARI >60 Normal >=60 [facility] Comment on above: Performed By: #### P HOS, URIC, MG, CMP, DBIL, LIPID #### [facility] [address] [place] [address] Dr. Karla Lagos EGFR-NON AF QATARI 54 mL/min/1.73m2 Critically low >=60 [facility] Comment on above: Performed By: #### P HOS, URIC, MG, CMP, DBIL, LIPID #### [facility] [address] [place] [address] Dr. Karla Lagos Globulin (S) [Mass/Vol] 3.2 g/dL Normal [facility] Comment on above: Performed By: #### P HOS, URIC, MG, CMP, DBIL, LIPID #### [facility] [address] [place] [address] Dr. Karla Lagos Glucose [Mass/Vol] 125 mg/dL Critically high 74-106 [facility] Comment on above: Performed By: #### P HOS, URIC, MG, CMP, DBIL, LIPID #### [facility] [address] [place] [address] Dr. Karla Lagos Potassium [Moles/Vol] 5.0 mmol/L Normal 3.5-5.1 [facility] Comment on above: Performed By: #### P HOS, URIC, MG, CMP, DBIL, LIPID #### [facility] [address] [place] [address] Dr. Karla Lagos Protein [Mass/Vol] 7.3 g/dL Normal 6.4-8.2 [facility] Comment on above: Performed By: #### P HOS, URIC, MG, CMP, DBIL, LIPID #### [facility] [address] [place] [address] Dr. Karla Lagos Sodium [Moles/Vol] 141 mmol/L Normal 136-145 [facility] Comment on above: Performed By: #### P HOS, URIC, MG, CMP, DBIL, LIPID #### [facility] [address] [place] [address] Dr. Karla Lagos Urea nitrogen [Mass/Vol] 24.0 mg/dL Critically high 7.0-18.0 [facility] Comment on above: Performed By: #### P HOS, URIC, MG, CMP, DBIL, LIPID #### [facility] [address] [place] [address] Dr. Karla Lagos Urea nitrogen/Creatinine [Mass ratio] 17.9 mg/mg Normal [facility] Comment on above: Performed By: #### P HOS, URIC, MG, CMP, DBIL, LIPID #### [facility] [address] [address] [address] Karla Lagos URIC ACID SERUMon 03-25-2022 Urate [Mass/Vol] 5.0 mg/dL Normal 3.5-7.2 [facility] Comment on above: Performed By: #### P HOS, URIC, MG, CMP, DBIL, LIPID #### [facility] [address] [place] [address] Dr. Karla Lagos FK506 (TACROLIMUS) WHOLE BLO ODon 02-27-2022 Tacrolimus (FK506), Blood 8.0 ng/mL Normal 2.0-20.0 [facility] Comment on above: Result Comment: Trou gh (immediately following transplant) 15.0 . Trough (steady state, 2 weeks or more after transplant): 3.0 - 8.0 . Performed by LC-MS/MS technology. Performed By: #### P HOS, URIC, MG, CMP, DBIL, LIPID #### [facility] [address] [place] [address] Dr. Karla Lagos BK VIRUS PCR QUANTon 022 BKV DNA QUANT PCR PLASMA Negative Normal Negative [facility] Comment on above: Result Comment: No B K DNA detected. . The linear range of the assay is 22 - 100,000,000 IU/mL. Performed By: #### P HOS, URIC, MG, CMP, DBIL, LIPID #### [facility] [address] [place] [address] Dr. Karla Lagos Log10 BKV DNA Plasma Normal [facility] Comment on above: Performed By: #### P HOS, URIC, MG, CMP, DBIL, LIPID #### [facility] [address] [place] [address] Dr. Karla Lagos BILIRUBIN CONJUGATED (DIRECT )on 02-24-2022 BILI, CONJUGATED 0.2 mg/dL Normal 0.0-0.2 [facility] Comment on above: Performed By: #### P HOS, URIC, MG, CMP, DBIL, LIPID #### [facility] [address] [place] [address] Dr. Karla Lagos CBC AUTO DIFFon 02-24-2022 BASO # 0.1 103/ul Normal 0.0-0.1 [facility] Comment on above: Performed By: #### P HOS, URIC, MG, CMP, DBIL, LIPID #### [facility] Laboratory [address] [place] [address] Dr. Karla Lagos Basophils/100 WBC (Bld) 0.8 % Normal 0.2-2.0 The [facility] Comment on above: Performed By: #### P HOS, URIC, MG, CMP, DBIL, LIPID #### [facility] Laboratory [address] [place] [address] Dr. Karla Lagos EO # 0.1 103/ul Normal 0.0-0.7 The [facility] Comment on above: Performed By: #### P HOS, URIC, MG, CMP, DBIL, LIPID #### [facility] Laboratory [address] [place] [address] Dr. Karla Lagos Eosinophils/100 WBC (Bld) 1.7 % Normal 0.9-7.0 [facility] Comment on above: Performed By: #### P HOS, URIC, MG, CMP, DBIL, LIPID #### [facility] Laboratory [address] [place] [address] Dr. Karla Lagos Erythrocyte distribution width (RBC) [Ratio] 14.1 % Normal 11.0-15.0 [facility] Comment on above: Performed By: #### P HOS, URIC, MG, CMP, DBIL, LIPID #### [facility] Laboratory [address] [place] [address] Dr. Karla Lagos Hematocrit (Bld) [Volume fraction] 48.1 % Normal 42.0-54.0 The [facility] Comment on above: Performed By: #### P HOS, URIC, MG, CMP, DBIL, LIPID #### [facility] Laboratory [address] [place] [address] Dr. Karla Lagos Hemoglobin (Bld) [Mass/Vol] 16.0 g/dL Normal 14.0-18.0 [facility] Comment on above: Performed By: #### P HOS, URIC, MG, CMP, DBIL, LIPID #### [facility] Laboratory [address] [place] [address] Dr. Karla Lagos IG # 0.03 10e3/ul Normal 0.00-0.03 [facility] Comment on above: Performed By: #### P HOS, URIC, MG, CMP, DBIL, LIPID #### [facility] Laboratory [address] [place] [address] Dr. Karla Lagos IG % 0.5 % Normal 0.0-0.5 The [facility] Comment on above: Performed By: #### P HOS, URIC, MG, CMP, DBIL, LIPID #### [facility] Laboratory [address] [place] [address] Dr. Karla Lagos LYMPH # 1.0 103/ul Critically low 1.2-3.8 [facility] Comment on above: Performed By: #### P HOS, URIC, MG, CMP, DBIL, LIPID #### [facility] Laboratory [address] [place] [address] Dr. Karla Lagos Lymphocytes/100 WBC (Bld) 16.9 % Critically low 20.5-60.0 [facility] Comment on above: Performed By: #### P HOS, URIC, MG, CMP, DBIL, LIPID #### [facility] Laboratory [address] [place] [address] Dr. Karla Lagos MANUAL DIFF REQ NO Normal [facility] Comment on above: Performed By: #### P HOS, URIC, MG, CMP, DBIL, LIPID #### [facility] Laboratory [address] [place] [address] Dr. Karla Lagos MCH (RBC) [Entitic mass] 31.1 pg Normal 25.9-34.0 [facility] Comment on above: Performed By: #### P HOS, URIC, MG, CMP, DBIL, LIPID #### [facility] Laboratory [address] [place] [address] Dr. Karla Lagos MCHC (RBC) [Mass/Vol] 33.3 g/dL Normal 29.9-35.2 [facility] Comment on above: Performed By: #### P HOS, URIC, MG, CMP, DBIL, LIPID #### [facility] Laboratory [address] [place] [address] Dr. Karla Lagos MCV (RBC) [Entitic vol] 93.6 fL Normal 80.0-94.0 [facility] Comment on above: Performed By: #### P HOS, URIC, MG, CMP, DBIL, LIPID #### [facility] Laboratory [address] [place] [address] Dr. Karla Lagos MONO # 0.6 103/ul Normal 0.3-0.8 The [facility] Comment on above: Performed By: #### P HOS, URIC, MG, CMP, DBIL, LIPID #### [facility] Laboratory [address] [place] [address] Dr. Karla Lagos Monocytes/100 WBC (Bld) 10.1 % Normal 1.7-12.0 [facility] Comment on above: Performed By: #### P HOS, URIC, MG, CMP, DBIL, LIPID #### [facility] Laboratory [address] [place] [address] Dr. Karla Lagos NEUT # 4.2 103/ul Normal 1.4-6.5 The [facility] Comment on above: Performed By: #### P HOS, URIC, MG, CMP, DBIL, LIPID #### [facility] Laboratory [address] [place] [address] Dr. Karla Lagos Neutrophils/100 WBC (Bld) 70.0 % Normal 43.0-75.0 The [facility] Comment on above: Performed By: #### P HOS, URIC, MG, CMP, DBIL, LIPID #### [facility] Laboratory [address] [place] [address] Dr. Karla Lagos Platelet mean volume (Bld) [Entitic vol] 10.2 fL Normal 9.5-13.5 The [facility] Comment on above: Performed By: #### P HOS, URIC, MG, CMP, DBIL, LIPID #### [facility] Laboratory [address] [place] [address] Dr. Karla Lagos PLT 226 103/ul Normal 150-450 The [facility] Comment on above: Performed By: #### P HOS, URIC, MG, CMP, DBIL, LIPID #### [facility] Laboratory [address] [address] [address] Karla Lagos RBC 5.14 106/ul Normal 4.70-6.10 [facility] Comment on above: Performed By: #### P HOS, URIC, MG, CMP, DBIL, LIPID #### [facility] Laboratory [address] [address] [address] Karla Lagos WBC 6.0 103/ul Normal 4.0-11.0 [facility] Comment on above: Performed By: #### P HOS, URIC, MG, CMP, DBIL, LIPID #### [facility] Laboratory [address] [address] [address] Karla Lagos LIPID PROFILEon 02-24-2022 CHOL-HDL RATIO NORM SEE BELOW Normal [facility] Comment on above: Result Comment: 3.3 - 4.4 LOW RISK 4.4 - 7.1 AVERAGE RISK 7.1 - 11.0 MODERATE RISK >11.0 HIGH RISK Performed By: #### P HOS, URIC, MG, CMP, DBIL, LIPID #### [facility] Laboratory [address] [address] [address] Karla Lagos Cholesterol [Mass/Vol] 132 mg/dL Normal <=200 [facility] Comment on above: Performed By: #### P HOS, URIC, MG, CMP, DBIL, LIPID #### [facility] Laboratory [address] [address] [address] Karla Lagos Cholesterol in HDL [Mass/Vol] 50 mg/dL Normal 40-60 [facility] Comment on above: Performed By: #### P HOS, URIC, MG, CMP, DBIL, LIPID #### [facility] Laboratory [address] [address] [address] Karla Lagos Cholesterol in LDL [Mass/Vol] 54.6 mg/dL Normal [facility] Comment on above: Performed By: #### P HOS, URIC, MG, CMP, DBIL, LIPID #### [facility] Laboratory [address] [address] [address] Karla Lagos Cholesterol.total/C holesterol in HDL [Mass ratio] 2.6 {ratio} Normal The [facility] Comment on above: Performed By: #### P HOS, URIC, MG, CMP, DBIL, LIPID #### [facility] Laboratory [address] [address] [address] Karla Lagos HDL NORMAL > or = 60 mg/dl - LO W CARDIOVASCULAR RISK <40 mg/dl - HIGH CARDIOVASCULAR RISK Normal [facility] Comment on above: Performed By: #### P HOS, URIC, MG, CMP, DBIL, LIPID #### [facility] Laboratory [address] [address] [address] Karla Lagos LDL CALC NORMAL SEE BELOW Normal [facility] Comment on above: Result Comment: <100 mg/dl OPTIMAL 100 - 129 mg/dl NEAR OR ABOVE OPTIMAL 130 - 159 mg/dl BORDERLINE HIGH 160 - 189 mg/dl HIGH >190 mg/dl VERY HIGH Performed By: #### P HOS, URIC, MG, CMP, DBIL, LIPID #### [facility] Laboratory [address] [address] [address] Karla Lagos Triglyceride [Mass/Vol] 137 mg/dL Normal <=150 [facility] Comment on above: Performed By: #### P HOS, URIC, MG, CMP, DBIL, LIPID #### [facility] Laboratory [address] [address] [address] Karla Lagos VLDL CALC 27.4 mg/dL Normal The [facility] Comment on above: Performed By: #### P HOS, URIC, MG, CMP, DBIL, LIPID #### [facility] Laboratory [address] [place] [address] Dr. Karla Lagos MAGNESIUMon 02-24-2022 Magnesium [Mass/Vol] 1.5 mg/dL Critically low 1.8-2.4 The [facility] Comment on above: Performed By: #### P HOS, URIC, MG, CMP, DBIL, LIPID #### [facility] Laboratory [address] [place] [address] Dr. Karla Lagos PHOSPHORUSon 02-24-2022 Phosphate [Mass/Vol] 3.2 mg/dL Normal 2.6-4.7 [facility] Comment on above: Performed By: #### P HOS, URIC, MG, CMP, DBIL, LIPID #### [facility] Laboratory [address] [place] [address] Dr. Karla Lagos PROF 14(COMP METB)on 022 Albumin [Mass/Vol] 4.1 g/dL Normal 3.4-5.0 [facility] Comment on above: Performed By: #### P HOS, URIC, MG, CMP, DBIL, LIPID #### [facility] Laboratory [address] [place] [address] Dr. Karla Lagos Albumin/Globulin [Mass ratio] 1.4 {ratio} Normal [facility] Comment on above: Performed By: #### P HOS, URIC, MG, CMP, DBIL, LIPID #### [facility] Laboratory [address] [place] [address] Dr. Karla Lagos ALP [Catalytic activity/Vol] 73 U/L Normal 46-116 [facility] Comment on above: Performed By: #### P HOS, URIC, MG, CMP, DBIL, LIPID #### [facility] Laboratory [address] [place] [address] Dr. Karla Lagos ALT [Catalytic activity/Vol] 27 U/L Normal 16-63 [facility] Comment on above: Performed By: #### P HOS, URIC, MG, CMP, DBIL, LIPID #### [facility] Laboratory [address] [place] [address] Dr. Karla Lagos Anion gap [Moles/Vol] 11.7 mmol/L Normal [facility] Comment on above: Performed By: #### P HOS, URIC, MG, CMP, DBIL, LIPID #### [facility] Laboratory [address] [place] [address] Dr. Karla Lagos AST [Catalytic activity/Vol] 16 U/L Normal 15-37 [facility] Comment on above: Performed By: #### P HOS, URIC, MG, CMP, DBIL, LIPID #### [facility] Laboratory [address] [place] [address] Dr. Karla Lagos Bilirubin [Mass/Vol] 0.8 mg/dL Normal 0.2-1.0 [facility] Comment on above: Performed By: #### P HOS, URIC, MG, CMP, DBIL, LIPID #### [facility] Laboratory [address] [address] [address] Karla Lagos Calcium [Mass/Vol] 9.1 mg/dL Normal 8.5-10.1 [facility] Comment on above: Performed By: #### P HOS, URIC, MG, CMP, DBIL, LIPID #### [facility] Laboratory [address] [address] [address] Karla Lagos Chloride [Moles/Vol] 104 mmol/L Normal 98-107 [facility] Comment on above: Performed By: #### P HOS, URIC, MG, CMP, DBIL, LIPID #### [facility] Laboratory [address] [place] [address] Dr. Karla Lagos CO2 [Moles/Vol] 29.4 mmol/L Normal 21.0-32.0 [facility] Comment on above: Performed By: #### P HOS, URIC, MG, CMP, DBIL, LIPID #### [facility] Laboratory [address] [place] [address] Dr. Karla Lagos Creatinine [Mass/Vol] 1.27 mg/dL Normal 0.70-1.30 [facility] Comment on above: Performed By: #### P HOS, URIC, MG, CMP, DBIL, LIPID #### [facility] Laboratory [address] [place] [address] Dr. Karla Lagos EGFR-AF QATARI >60 Normal >=60 [facility] Comment on above: Performed By: #### P HOS, URIC, MG, CMP, DBIL, LIPID #### [facility] Laboratory [address] [place] [address] Dr. Karla Lagos EGFR-NON AF QATARI 58 mL/min/1.73m2 Critically low >=60 [facility] Comment on above: Performed By: #### P HOS, URIC, MG, CMP, DBIL, LIPID #### [facility] Laboratory [address] [place] [address] Dr. Karla Lagos Globulin (S) [Mass/Vol] 2.9 g/dL Normal [facility] Comment on above: Performed By: #### P HOS, URIC, MG, CMP, DBIL, LIPID #### [facility] Laboratory [address] [address] [address] Karla Lagos Glucose [Mass/Vol] 113 mg/dL Critically high 74-106 [facility] Comment on above: Performed By: #### P HOS, URIC, MG, CMP, DBIL, LIPID #### [facility] Laboratory [address] [address] [address] Karla Lagos Potassium [Moles/Vol] 4.1 mmol/L Normal 3.5-5.1 [facility] Comment on above: Performed By: #### P HOS, URIC, MG, CMP, DBIL, LIPID #### [facility] Laboratory [address] [place] [address] Dr. Karla Lagos Protein [Mass/Vol] 7.0 g/dL Normal 6.4-8.2 [facility] Comment on above: Performed By: #### P HOS, URIC, MG, CMP, DBIL, LIPID #### [facility] Laboratory [address] [place] [address] Dr. Karla Lagos Sodium [Moles/Vol] 141 mmol/L Normal 136-145 [facility] Comment on above: Performed By: #### P HOS, URIC, MG, CMP, DBIL, LIPID #### [facility] Laboratory [address] [place] [address] Dr. Karla Lagos Urea nitrogen [Mass/Vol] 18.0 mg/dL Normal 7.0-18.0 [facility] Comment on above: Performed By: #### P HOS, URIC, MG, CMP, DBIL, LIPID #### [facility] Laboratory [address] [place] [address] Dr. Karla Lagos Urea nitrogen/Creatinine [Mass ratio] 14.2 mg/mg Normal [facility] Comment on above: Performed By: #### P HOS, URIC, MG, CMP, DBIL, LIPID #### [facility] Laboratory [address] [place] [address] Dr. Karla Lagos URIC ACID SERUMon 02-24-2022 Urate [Mass/Vol] 6.0 mg/dL Normal 3.5-7.2 [facility] Comment on above: Performed By: #### P HOS, URIC, MG, CMP, DBIL, LIPID #### [facility] Laboratory [address] [place], [place] [address] Dr. Karla Lagos XR Chest 2 Views*on 01-14-20 22 XR Chest 2 Views* FINDINGS: Comparison made with prior examination of September 24, 2020. Improved aeration with no persistent parenchymal consolidation. No pleural or pericardial effusions. Normal cardiac silhouette size. Sternotomy wires. Left central cardiac pacemaker. IMPRESSION: 1. Minimal residual post-inflammatory sequela. Report reported and signed by Anjum Remy on 01/13/2022 1143 Normal [facility] Administrative Assistant ECHOCARDIO M/2D COMPLETEon 0 09-28-2021 ECHOCARDIO M/2D COMPLETE Patient: VISHAL DUKE Exam Date: 09/28/2021 : 1960 Gender:M Ordering : DR FEDERICO CHESTER M.D. Admission #: [id number] Family : DR ROSA M GONZALES M.D. Order #: [id number] CLICK HERE TO VIEW EXAM ECHOCARDIOGRAM REPORT [...] Area(A4C): 20.50 cm2 Left Atrium Systolic Volume(A2C): 12373 mm3 Left Atrium Systolic Volume(A4C): 95323 mm3 Mitral Valve MV E to A [...] Frazier M.D. on 09/28/2021 at 19:38 Normal [facility] Bilirubin, Directon 09-28-19 22 DBIL <0.2 Normal [facility] Administrative Assistant Comment on above: Result Comment: Refe rence range change 03/03/2017. Prior reference range 0.1-0.3 mg/dL. Performed By: #### C BCAD, MG, URIC, LIPD, PHOS, CMP, DBIL #### [facility] [address] [place], [place] [id number] Complete Blood Count with Au to Diffon 09-27-2021 Basophils (Bld) [#/Vol] 0.06 10*3/uL Normal 0.00-0.20 [facility] Specialist Comment on above: Performed By: #### C BCAD, MG, URIC, LIPD, PHOS, CMP, DBIL #### [facility] [address] [place], [place] [id number] Basophils/100 WBC (Bld) 1.0 % Normal [facility] Specialist Comment on above: Performed By: #### C BCAD, MG, URIC, LIPD, PHOS, CMP, DBIL #### [facility] [address] [place], [place] [id number] Eosinophils (Bld) [#/Vol] 0.09 10*3/uL Normal 0.02-0.50 [facility] Administrative Assistant Comment on above: Performed By: #### C BCAD, MG, URIC, LIPD, PHOS, CMP, DBIL #### [facility] [address] [place], [place] [id number] Eosinophils/100 WBC (Bld) 1.5 % Normal [facility] Administrative Assistant Comment on above: Performed By: #### C BCAD, MG, URIC, LIPD, PHOS, CMP, DBIL #### [facility] [address] [place], [place] [id number] Erythrocyte distribution width (RBC) [Ratio] 14.1 % Normal 11.0-15.0 [facility] Administrative Assistant Comment on above: Performed By: #### C BCAD, MG, URIC, LIPD, PHOS, CMP, DBIL #### [facility] [address] [place], [place] [id number] Hematocrit (Bld) [Volume fraction] 51.6 % High 38.5-50.0 [facility] Administrative Assistant Comment on above: Performed By: #### C BCAD, MG, URIC, LIPD, PHOS, CMP, DBIL #### [facility] [address] [place], [place] [id number] Hemoglobin (Bld) [Mass/Vol] 16.5 g/dL Normal 13.0-17.1 [facility] Specialist Comment on above: Performed By: #### C BCAD, MG, URIC, LIPD, PHOS, CMP, DBIL #### [facility] [address] [place], [place] [id number] Lymphocytes (Bld) [#/Vol] 1.0 10*3/uL Normal 0.9-3.9 [facility] Specialist Comment on above: Performed By: #### C BCAD, MG, URIC, LIPD, PHOS, CMP, DBIL #### [facility] [address] [place], [place] [id number] Lymphocytes/100 WBC (Bld) 16.3 % Normal [facility] Specialist Comment on above: Performed By: #### C BCAD, MG, URIC, LIPD, PHOS, CMP, DBIL #### [facility] [address] [place], [place] [id number] MCH (RBC) [Entitic mass] 29.9 pg Normal 27.0-33.0 [facility] Specialist Comment on above: Performed By: #### C BCAD, MG, URIC, LIPD, PHOS, CMP, DBIL #### [facility] [address] [place], [place] [id number] MCHC (RBC) [Mass/Vol] 32.0 g/dL Normal 32.0-36.0 [facility] Specialist Comment on above: Performed By: #### C BCAD, MG, URIC, LIPD, PHOS, CMP, DBIL #### [facility] [address] [place], [place] [id number] MCV (RBC) [Entitic vol] 94 fL Normal 80-100 [facility] Specialist Comment on above: Performed By: #### C BCAD, MG, URIC, LIPD, PHOS, CMP, DBIL #### [facility] [address] [place], [place] [id number] Monocytes (Bld) [#/Vol] 0.7 10*3/uL Normal 0.2-0.9 [facility] Specialist Comment on above: Performed By: #### C BCAD, MG, URIC, LIPD, PHOS, CMP, DBIL #### [facility] [address] [place], [place] [id number] Monocytes/100 WBC (Bld) 11.1 % Normal [facility] Comment on above: Performed By: #### C BCAD, MG, URIC, LIPD, PHOS, CMP, DBIL #### [facility] [address] [place], [place] [id number] Neutrophils (Bld) [#/Vol] 4.2 10*3/uL Normal 1.5-7.8 [facility] Comment on above: Performed By: #### C BCAD, MG, URIC, LIPD, PHOS, CMP, DBIL #### [facility] [address] [place], [place] [id number] Neutrophils/100 WBC (Bld) 69.8 % Normal [facility] Specialist Comment on above: Performed By: #### C BCAD, MG, URIC, LIPD, PHOS, CMP, DBIL #### [facility] [address] [place], [place] [id number] Platelet mean volume (Bld) [Entitic vol] 10.80 fL Normal 7.50-12.50 [facility] Specialist Comment on above: Performed By: #### C BCAD, MG, URIC, LIPD, PHOS, CMP, DBIL #### [facility] [address] [place], [place] [id number] Platelets (Bld) [#/Vol] 247 10*3/uL Normal 140-400 [facility] Specialist Comment on above: Performed By: #### C BCAD, MG, URIC, LIPD, PHOS, CMP, DBIL #### [facility] [address] [place], [place] [id number] RBC (Bld) [#/Vol] 5.52 10*6/uL Normal 4.20-5.80 [facility] Specialist Comment on above: Performed By: #### C BCAD, MG, URIC, LIPD, PHOS, CMP, DBIL #### [facility] [address] [place], [place] [id number] RDW-SD 48.9 fL Normal 37.0-50.0 [facility] Specialist Comment on above: Performed By: #### C BCAD, MG, URIC, LIPD, PHOS, CMP, DBIL #### [facility] [address] [place], [place] [id number] WBC (Bld) [#/Vol] 6.0 10*3/uL Normal 3.8-11.0 [facility] [place] [facility] Administrative Assistant Comment on above: Performed By: #### C BCAD, MG, URIC, LIPD, PHOS, CMP, DBIL #### [facility] [address] [place], [place] [id number] Comprehensive Metabolic [facility] 09-27-2021 Albumin [Mass/Vol] 5.0 g/dL Normal 3.6-5.1 [facility] [place] [facility] Administrative Assistant Comment on above: Performed By: #### C BCAD, MG, URIC, LIPD, PHOS, CMP, DBIL #### [facility] [address] [place], [place] [id number] Albumin/Globulin [Mass ratio] 2.8 {ratio} High 1.0-2.5 [facility] Administrative Assistant Comment on above: Performed By: #### C BCAD, MG, URIC, LIPD, PHOS, CMP, DBIL #### [facility] [address] [place], [place] [id number] ALP [Catalytic activity/Vol] 79 U/L Normal 40-129 [facility] Administrative Assistant Comment on above: Performed By: #### C BCAD, MG, URIC, LIPD, PHOS, CMP, DBIL #### [facility] [address] [place], [place] [id number] ALT [Catalytic activity/Vol] 29 U/L Normal 9-46 [facility] Administrative Assistant Comment on above: Result Comment: 03/17 Female reference range changed. Performed By: #### C BCAD, MG, URIC, LIPD, PHOS, CMP, DBIL #### [facility] [address] [place], [place] [id number] Anion gap [Moles/Vol] 23 mmol/L High 12-20 [facility] Administrative Assistant Comment on above: Result Comment: Effe ctive 04/22/2019 reference range changed. Performed By: #### C BCAD, MG, URIC, LIPD, PHOS, CMP, DBIL #### [facility] [address] [place], [place] [id number] AST [Catalytic activity/Vol] 25 U/L Normal 10-40 [facility] Comment on above: Performed By: #### C BCAD, MG, URIC, LIPD, PHOS, CMP, DBIL #### [facility] [address] [place], [place] [id number] Bilirubin [Mass/Vol] 0.66 mg/dL Normal 0.30-1.20 [facility] Comment on above: Performed By: #### C BCAD, MG, URIC, LIPD, PHOS, CMP, DBIL #### [facility] [address] [place], [place] [id number] BUN/CREA 18 Ratio Normal 6-22 [facility] Comment on above: Performed By: #### C BCAD, MG, URIC, LIPD, PHOS, CMP, DBIL #### [facility] [address] [place], [place] [id number] Calcium [Mass/Vol] 10.0 mg/dL Normal 8.6-10.2 [facility] Comment on above: Performed By: #### C BCAD, MG, URIC, LIPD, PHOS, CMP, DBIL #### [facility] [address] [place], [place] [id number] Chloride [Moles/Vol] 105 mmol/L Normal 98-107 [facility] Comment on above: Performed By: #### C BCAD, MG, URIC, LIPD, PHOS, CMP, DBIL #### [facility] [address] [place], [place] [id number] CO2 [Moles/Vol] 20 mmol/L Normal 20-31 [facility] Comment on above: Performed By: #### C BCAD, MG, URIC, LIPD, PHOS, CMP, DBIL #### [facility] [address] [place], [place] [id number] Creatinine [Mass/Vol] 1.2 mg/dL Normal 0.7-1.4 [facility] Comment on above: Performed By: #### C BCAD, MG, URIC, LIPD, PHOS, CMP, DBIL #### [facility] [address] [place], [place] [id number] eGFRAA 72 mL/min/1.73m2 Normal >60 [facility] Administrative Assistant Comment on above: Performed By: #### C BCAD, MG, URIC, LIPD, PHOS, CMP, DBIL #### [facility] [address] [place], [place] [id number] eGFRNAA 59 mL/min/1.73m2 Low >60 [facility] Administrative Assistant Comment on above: Performed By: #### C BCAD, MG, URIC, LIPD, PHOS, CMP, DBIL #### [facility] [address] [place], [place] [id number] Globulin (S) [Mass/Vol] 1.8 g/dL Low 1.9-3.7 [facility] Administrative Assistant Comment on above: Performed By: #### C BCAD, MG, URIC, LIPD, PHOS, CMP, DBIL #### [facility] [address] [place], [place] [id number] Glucose [Mass/Vol] 121 mg/dL High 65-99 [place] [facility] Administrative Assistant Comment on above: Result Comment: For FASTING Glucose --- ADA reference ranges: Normal 65-99 mg/dl Prediabetes 100-125 Diabetes >/= 126 Performed By: #### C BCAD, MG, URIC, LIPD, PHOS, CMP, DBIL #### [facility] [address] [place], [place] [id number] Potassium [Moles/Vol] 4.5 mmol/L Normal 3.5-5.5 [facility] Administrative Assistant Comment on above: Performed By: #### C BCAD, MG, URIC, LIPD, PHOS, CMP, DBIL #### [facility] [address] [place], [place] [id number] Protein [Mass/Vol] 6.8 g/dL Normal 6.1-8.1 [place] [facility] Administrative Assistant Comment on above: Performed By: #### C BCAD, MG, URIC, LIPD, PHOS, CMP, DBIL #### [facility] [address] [place], [place] [id number] Sodium [Moles/Vol] 143 mmol/L Normal 135-146 [facility] Comment on above: Performed By: #### C BCAD, MG, URIC, LIPD, PHOS, CMP, DBIL #### [facility] [address] [place], [place] [id number] Urea nitrogen [Mass/Vol] 23 mg/dL Normal 7-25 [facility] Specialist Comment on above: Performed By: #### C BCAD, MG, URIC, LIPD, PHOS, CMP, DBIL #### [facility] [address] [place], [place] [id number] Lipid Panelon 09-27-2021 Cholesterol [Mass/Vol] 131 mg/dL Normal 125-200 [facility] Comment on above: Result Comment: Low risk < 200mg/dL Borderline risk 201-239 mg/dl High risk > or equal to 240 Performed By: #### C BCAD, MG, URIC, LIPD, PHOS, CMP, DBIL #### [facility] [address] [place], [place] [id number] Cholesterol in HDL [Mass/Vol] 43 mg/dL Normal >40 [facility] Specialist Comment on above: Result Comment: High Cardiovascular Risk HDL <40 mg/dL Low Cardiovascular Risk HDL > or equal to 60 mg/dl Performed By: #### C BCAD, MG, URIC, LIPD, PHOS, CMP, DBIL #### [facility] [address] [place], [place] [id number] Cholesterol in LDL [Mass/Vol] 52 mg/dL Normal [facility] Comment on above: Result Comment: LDL ATP III CLASSIFICATION LDL less than 100 mg/dl Optimal LDL 100-129 mg/dl Near or above optimal LDL 130-159 Borderline high LDL 160-189 High LDL greater than 189 mg/dl Very High Performed By: #### C BCAD, MG, URIC, LIPD, PHOS, CMP, DBIL #### [facility] [address] [place], [place] [id number] Cholesterol in VLDL [Mass/Vol] 36 mg/dL Normal [facility] Comment on above: Performed By: #### C BCAD, MG, URIC, LIPD, PHOS, CMP, DBIL #### [facility] [address] [place], [place] [id number] Cholesterol.total/C holesterol in HDL [Mass ratio] 3 {ratio} Normal [facility] Administrative Assistant Comment on above: Performed By: #### C BCAD, MG, URIC, LIPD, PHOS, CMP, DBIL #### [facility] [address] [place], [place] [id number] Triglyceride [Mass/Vol] 180 mg/dL High 30-150 [facility] Administrative Assistant Comment on above: Result Comment: TRIG ATPIII CLASSIFICATIONS TRIG less than 150 mg/dl Normal TRIG 150-199 mg/dl Borderline High TRIG 200-500 mg/dl High TRIG greather than 500 mg/dl Very High Performed By: #### C BCAD, MG, URIC, LIPD, PHOS, CMP, DBIL #### [facility] [address] [place], [place] [id number] Magnesiumon 09-27-2021 Magnesium [Mass/Vol] 1.9 mg/dL Normal 1.5-2.3 [facility] Administrative Assistant Comment on above: Performed By: #### C BCAD, MG, URIC, LIPD, PHOS, CMP, DBIL #### [facility] [address] [place], [place] [id number] Phosphoruson 09-27-2021 Phosphate [Mass/Vol] 3.6 mg/dL Normal 2.2-4.4 [facility] Administrative Assistant Comment on above: Performed By: #### C BCAD, MG, URIC, LIPD, PHOS, CMP, DBIL #### [facility] [address] [place], [place] [id number] Uric Acidon 09-27-2021 URIC 6.5 mg/dL Normal 4.0-8.0 [facility] Administrative Assistant Comment on above: Result Comment: Refe rence range change 03/03/2017. Prior reference range F 2.4-5.7mg/dL. M 3.4-7.0 mg/dL. Performed By: #### C BCAD, MG, URIC, LIPD, PHOS, CMP, DBIL #### [facility] [address] [place], [place] [id number] Bilirubin, Directon 08-25-19 22 DBIL <0.2 Normal [facility] Administrative Assistant Comment on above: Result Comment: Refe rence range change 03/03/2017. Prior reference range 0.1-0.3 mg/dL. Performed By: #### C BCAD, MG, URIC, LIPD, PHOS, CMP, DBIL #### [facility] [address] [place], [place] [id number] Complete Blood Count with Au to Diffon 08-24-2021 Basophils (Bld) [#/Vol] 0.06 10*3/uL Normal 0.00-0.20 [facility] Specialist Comment on above: Performed By: #### C BCAD, MG, URIC, LIPD, PHOS, CMP, DBIL #### [facility] [address] [place], [place] [id number] Basophils/100 WBC (Bld) 1.1 % Normal [facility] Specialist Comment on above: Performed By: #### C BCAD, MG, URIC, LIPD, PHOS, CMP, DBIL #### [facility] [address] [place], [place] [id number] Eosinophils (Bld) [#/Vol] 0.10 10*3/uL Normal 0.02-0.50 [facility] Specialist Comment on above: Performed By: #### C BCAD, MG, URIC, LIPD, PHOS, CMP, DBIL #### [facility] [address] [place], [place] [id number] Eosinophils/100 WBC (Bld) 1.8 % Normal [facility] Specialist Comment on above: Performed By: #### C BCAD, MG, URIC, LIPD, PHOS, CMP, DBIL #### [facility] [address] [place], [place] [id number] Erythrocyte distribution width (RBC) [Ratio] 14.5 % Normal 11.0-15.0 [facility] Specialist Comment on above: Performed By: #### C BCAD, MG, URIC, LIPD, PHOS, CMP, DBIL #### [facility] [address] [place], [place] [id number] Hematocrit (Bld) [Volume fraction] 50.4 % High 38.5-50.0 [facility] Specialist Comment on above: Performed By: #### C BCAD, MG, URIC, LIPD, PHOS, CMP, DBIL #### [facility] [address] [place], [place] [id number] Hemoglobin (Bld) [Mass/Vol] 16.4 g/dL Normal 13.0-17.1 [facility] Specialist Comment on above: Performed By: #### C BCAD, MG, URIC, LIPD, PHOS, CMP, DBIL #### [facility] [address] [place], [place] [id number] Lymphocytes (Bld) [#/Vol] 0.9 10*3/uL Normal 0.9-3.9 [facility] Specialist Comment on above: Performed By: #### C BCAD, MG, URIC, LIPD, PHOS, CMP, DBIL #### [facility] [address] [place], [place] [id number] Lymphocytes/100 WBC (Bld) 15.2 % Normal [facility] Specialist Comment on above: Performed By: #### C BCAD, MG, URIC, LIPD, PHOS, CMP, DBIL #### [facility] [address] [place], [place] [id number] MCH (RBC) [Entitic mass] 30.5 pg Normal 27.0-33.0 [facility] Specialist Comment on above: Performed By: #### C BCAD, MG, URIC, LIPD, PHOS, CMP, DBIL #### [facility] [address] [place], [place] [id number] MCHC (RBC) [Mass/Vol] 32.5 g/dL Normal 32.0-36.0 [facility] Specialist Comment on above: Performed By: #### C BCAD, MG, URIC, LIPD, PHOS, CMP, DBIL #### [facility] [address] [place], [place] [id number] MCV (RBC) [Entitic vol] 94 fL Normal 80-100 [facility] Specialist Comment on above: Performed By: #### C BCAD, MG, URIC, LIPD, PHOS, CMP, DBIL #### [facility] [address] [place], [place] [id number] Monocytes (Bld) [#/Vol] 0.7 10*3/uL Normal 0.2-0.9 [facility] Specialist Comment on above: Performed By: #### C BCAD, MG, URIC, LIPD, PHOS, CMP, DBIL #### [facility] [address] [place], [place] [id number] Monocytes/100 WBC (Bld) 12.7 % Normal [facility] Specialist Comment on above: Performed By: #### C BCAD, MG, URIC, LIPD, PHOS, CMP, DBIL #### [facility] [address] [place], [place] [id number] Neutrophils (Bld) [#/Vol] 3.9 10*3/uL Normal 1.5-7.8 [facility] Specialist Comment on above: Performed By: #### C BCAD, MG, URIC, LIPD, PHOS, CMP, DBIL #### [facility] [address] [place], [place] [id number] Neutrophils/100 WBC (Bld) 68.7 % Normal [facility] Specialist Comment on above: Performed By: #### C BCAD, MG, URIC, LIPD, PHOS, CMP, DBIL #### [facility] [address] [place], [place] [id number] Platelet mean volume (Bld) [Entitic vol] 11.20 fL Normal 7.50-12.50 [facility] Specialist Comment on above: Performed By: #### C BCAD, MG, URIC, LIPD, PHOS, CMP, DBIL #### [facility] [address] [place], [place] [id number] Platelets (Bld) [#/Vol] 230 10*3/uL Normal 140-400 [facility] Specialist Comment on above: Performed By: #### C BCAD, MG, URIC, LIPD, PHOS, CMP, DBIL #### [facility] [address] [place], [place] [id number] RBC (Bld) [#/Vol] 5.38 10*6/uL Normal 4.20-5.80 [facility] Specialist Comment on above: Performed By: #### C BCAD, MG, URIC, LIPD, PHOS, CMP, DBIL #### [facility] [address] [place], [place] [id number] RDW-SD 49.1 fL Normal 37.0-50.0 [facility] Administrative Assistant Comment on above: Performed By: #### C BCAD, MG, URIC, LIPD, PHOS, CMP, DBIL #### [facility] [address] [place], [place] [id number] WBC (Bld) [#/Vol] 5.6 10*3/uL Normal 3.8-11.0 [place] [facility] Administrative Assistant Comment on above: Performed By: #### C BCAD, MG, URIC, LIPD, PHOS, CMP, DBIL #### [facility] [address] [place], [place] [id number] Comprehensive Metabolic Pane [facility] 08-24-2021 Albumin [Mass/Vol] 5.0 g/dL Normal 3.6-5.1 [place] [facility] Administrative Assistant Comment on above: Performed By: #### C BCAD, MG, URIC, LIPD, PHOS, CMP, DBIL #### [facility] [address] [place], [place] [id number] Albumin/Globulin [Mass ratio] 2.6 {ratio} High 1.0-2.5 [facility] Administrative Assistant Comment on above: Performed By: #### C BCAD, MG, URIC, LIPD, PHOS, CMP, DBIL #### [facility] [address] [place], [place] [id number] ALP [Catalytic activity/Vol] 75 U/L Normal 40-129 [facility] Administrative Assistant Comment on above: Performed By: #### C BCAD, MG, URIC, LIPD, PHOS, CMP, DBIL #### [facility] [address] [place], [place] [id number] ALT [Catalytic activity/Vol] 30 U/L Normal 9-46 [facility] Administrative Assistant Comment on above: Result Comment: 03/17 Female reference range changed. Performed By: #### C BCAD, MG, URIC, LIPD, PHOS, CMP, DBIL #### [facility] [address] [place], [place] [id number] Anion gap [Moles/Vol] 18 mmol/L Normal 12-20 [facility] Administrative Assistant Comment on above: Result Comment: Effe ctive 04/22/2019 reference range changed. Performed By: #### C BCAD, MG, URIC, LIPD, PHOS, CMP, DBIL #### [facility] [address] [place], [place] [id number] AST [Catalytic activity/Vol] 26 U/L Normal 10-40 [facility] Specialist Comment on above: Performed By: #### C BCAD, MG, URIC, LIPD, PHOS, CMP, DBIL #### [facility] [address] [place], [place] [id number] Bilirubin [Mass/Vol] 0.67 mg/dL Normal 0.30-1.20 [facility] Comment on above: Performed By: #### C BCAD, MG, URIC, LIPD, PHOS, CMP, DBIL #### [facility] [address] [place], [place] [id number] BUN/CREA 19 Ratio Normal 6-22 [facility] Specialist Comment on above: Performed By: #### C BCAD, MG, URIC, LIPD, PHOS, CMP, DBIL #### [facility] [address] [place], [place] [id number] Calcium [Mass/Vol] 9.9 mg/dL Normal 8.6-10.2 [facility] Comment on above: Performed By: #### C BCAD, MG, URIC, LIPD, PHOS, CMP, DBIL #### [facility] [address] [place], [place] [id number] Chloride [Moles/Vol] 103 mmol/L Normal 98-107 [facility] Specialist Comment on above: Performed By: #### C BCAD, MG, URIC, LIPD, PHOS, CMP, DBIL #### [facility] [address] [place], [place] [id number] CO2 [Moles/Vol] 25 mmol/L Normal 20-31 [facility] Specialist Comment on above: Performed By: #### C BCAD, MG, URIC, LIPD, PHOS, CMP, DBIL #### [facility] [address] [place], [place] [id number] Creatinine [Mass/Vol] 1.1 mg/dL Normal 0.7-1.4 [facility] Specialist Comment on above: Performed By: #### C BCAD, MG, URIC, LIPD, PHOS, CMP, DBIL #### [facility] [address] [place], [place] [id number] eGFRAA 81 mL/min/1.73m2 Normal >60 [facility] Administrative Assistant Comment on above: Performed By: #### C BCAD, MG, URIC, LIPD, PHOS, CMP, DBIL #### [facility] [address] [place], [place] [id number] eGFRNAA 67 mL/min/1.73m2 Normal >60 [facility] Administrative Assistant Comment on above: Performed By: #### C BCAD, MG, URIC, LIPD, PHOS, CMP, DBIL #### [facility] [address] [place], [place] [id number] Globulin (S) [Mass/Vol] 1.9 g/dL Normal 1.9-3.7 [facility] Administrative Assistant Comment on above: Performed By: #### C BCAD, MG, URIC, LIPD, PHOS, CMP, DBIL #### [facility] [address] [place], [place] [id number] Glucose [Mass/Vol] 125 mg/dL High 65-99 [place] [facility] Administrative Assistant Comment on above: Result Comment: For FASTING Glucose --- ADA reference ranges: Normal 65-99 mg/dl Prediabetes 100-125 Diabetes >/= 126 Performed By: #### C BCAD, MG, URIC, LIPD, PHOS, CMP, DBIL #### [facility] [address] [place], [place] [id number] Potassium [Moles/Vol] 4.2 mmol/L Normal 3.5-5.5 [facility] Administrative Assistant Comment on above: Performed By: #### C BCAD, MG, URIC, LIPD, PHOS, CMP, DBIL #### [facility] [address] [place], [place] [id number] Protein [Mass/Vol] 6.9 g/dL Normal 6.1-8.1 [place] [facility] Administrative Assistant Comment on above: Performed By: #### C BCAD, MG, URIC, LIPD, PHOS, CMP, DBIL #### [facility] [address] [place], [place] [id number] Sodium [Moles/Vol] 141 mmol/L Normal 135-146 [facility] Comment on above: Performed By: #### C BCAD, MG, URIC, LIPD, PHOS, CMP, DBIL #### [facility] [address] [place], [place] [id number] Urea nitrogen [Mass/Vol] 22 mg/dL Normal 7-25 [facility] Specialist Comment on above: Performed By: #### C BCAD, MG, URIC, LIPD, PHOS, CMP, DBIL #### [facility] [address] [place], [place] [id number] Hemoglobin A1Con 08-24-2021 EAG 134.11 Normal [facility] Comment on above: Performed By: #### C BCAD, MG, URIC, LIPD, PHOS, CMP, DBIL #### [facility] [address] [place], [place] [id number] HbA1c (Bld) [Mass fraction] 6.3 % High 4.0-6.0 [facility] Comment on above: Performed By: #### C BCAD, MG, URIC, LIPD, PHOS, CMP, DBIL #### [facility] [address] [place], [place] [id number] Lipid Panelon 08-24-2021 Cholesterol [Mass/Vol] 110 mg/dL Low 125-200 [facility] Specialist Comment on above: Result Comment: Low risk < 200mg/dL Borderline risk 201-239 mg/dl High risk > or equal to 240 Performed By: #### C BCAD, MG, URIC, LIPD, PHOS, CMP, DBIL #### [facility] [address] [place], [place] [id number] Cholesterol in HDL [Mass/Vol] 38 mg/dL Low >40 [facility] Specialist Comment on above: Result Comment: High Cardiovascular Risk HDL <40 mg/dL Low Cardiovascular Risk HDL > or equal to 60 mg/dl Performed By: #### C BCAD, MG, URIC, LIPD, PHOS, CMP, DBIL #### [facility] [address] [place], [place] [id number] Cholesterol in LDL [Mass/Vol] 46 mg/dL Normal [facility] Specialist Comment on above: Result Comment: LDL ATP III CLASSIFICATION LDL less than 100 mg/dl Optimal LDL 100-129 mg/dl Near or above optimal LDL 130-159 Borderline high LDL 160-189 High LDL greater than 189 mg/dl Very High Performed By: #### C BCAD, MG, URIC, LIPD, PHOS, CMP, DBIL #### [facility] [address] [place], [place] [id number] Cholesterol in VLDL [Mass/Vol] 26 mg/dL Normal [facility] Specialist Comment on above: Performed By: #### C BCAD, MG, URIC, LIPD, PHOS, CMP, DBIL #### [facility] [address] [place], [place] [id number] Cholesterol.total/C holesterol in HDL [Mass ratio] 3 {ratio} Normal [facility] Specialist Comment on above: Performed By: #### C BCAD, MG, URIC, LIPD, PHOS, CMP, DBIL #### [facility] [address] [place], [place] [id number] Triglyceride [Mass/Vol] 131 mg/dL Normal 30-150 [facility] Administrative Assistant Comment on above: Result Comment: TRIG ATPIII CLASSIFICATIONS TRIG less than 150 mg/dl Normal TRIG 150-199 mg/dl Borderline High TRIG 200-500 mg/dl High TRIG greather than 500 mg/dl Very High Performed By: #### C BCAD, MG, URIC, LIPD, PHOS, CMP, DBIL #### [facility] [address] [place], [place] [id number] Magnesiumon 08-24-2021 Magnesium [Mass/Vol] 2.0 mg/dL Normal 1.5-2.3 [facility] Specialist Comment on above: Performed By: #### C BCAD, MG, URIC, LIPD, PHOS, CMP, DBIL #### [facility] [address] [place], [place] [id number] Phosphoruson 08-24-2021 Phosphate [Mass/Vol] 3.5 mg/dL Normal 2.2-4.4 [facility] Specialist Comment on above: Performed By: #### C BCAD, MG, URIC, LIPD, PHOS, CMP, DBIL #### [facility] [address] [place], [place] [id number] Uric Acidon 08-24-2021 URIC 6.6 mg/dL Normal 4.0-8.0 [facility] Administrative Assistant Comment on above: Result Comment: Refe rence range change 03/03/2017. Prior reference range F 2.4-5.7mg/dL. M 3.4-7.0 mg/dL. Performed By: #### C BCAD, MG, URIC, LIPD, PHOS, CMP, DBIL #### [facility] [address] [place], [place] [id number] Bilirubin, Directon 07-30-19 22 DBIL <0.2 Normal [facility] Specialist Comment on above: Result Comment: Refe rence range change 03/03/2017. Prior reference range 0.1-0.3 mg/dL. Performed By: #### C BCAD, MG, URIC, LIPD, PHOS, CMP, DBIL #### [facility] [address] [place], [place] [id number] Complete Blood Count with Au to Diffon 07-29-2021 Basophils (Bld) [#/Vol] 0.07 10*3/uL Normal 0.00-0.20 [facility] Administrative Assistant Comment on above: Performed By: #### C BCAD, MG, URIC, LIPD, PHOS, CMP, DBIL #### [facility] [address] [place], [place] [id number] Basophils/100 WBC (Bld) 1.1 % Normal [facility] Administrative Assistant Comment on above: Performed By: #### C BCAD, MG, URIC, LIPD, PHOS, CMP, DBIL #### [facility] [address] [place], [place] [id number] Eosinophils (Bld) [#/Vol] 0.15 10*3/uL Normal 0.02-0.50 [facility] Administrative Assistant Comment on above: Performed By: #### C BCAD, MG, URIC, LIPD, PHOS, CMP, DBIL #### [facility] [address] [place], [place] [id number] Eosinophils/100 WBC (Bld) 2.4 % Normal [facility] Administrative Assistant Comment on above: Performed By: #### C BCAD, MG, URIC, LIPD, PHOS, CMP, DBIL #### [facility] [address] [place], [place] [id number] Erythrocyte distribution width (RBC) [Ratio] 14.0 % Normal 11.0-15.0 [facility] Specialist Comment on above: Performed By: #### C BCAD, MG, URIC, LIPD, PHOS, CMP, DBIL #### [facility] [address] [place], [place] [id number] Hematocrit (Bld) [Volume fraction] 50.3 % High 38.5-50.0 [facility] Specialist Comment on above: Performed By: #### C BCAD, MG, URIC, LIPD, PHOS, CMP, DBIL #### [facility] [address] [place], [place] [id number] Hemoglobin (Bld) [Mass/Vol] 16.5 g/dL Normal 13.0-17.1 [facility] Administrative Assistant Comment on above: Performed By: #### C BCAD, MG, URIC, LIPD, PHOS, CMP, DBIL #### [facility] [address] [place], [place] [id number] Lymphocytes (Bld) [#/Vol] 0.9 10*3/uL Normal 0.9-3.9 [facility] Specialist Comment on above: Performed By: #### C BCAD, MG, URIC, LIPD, PHOS, CMP, DBIL #### [facility] [address] [place], [place] [id number] Lymphocytes/100 WBC (Bld) 13.4 % Normal [facility] Specialist Comment on above: Performed By: #### C BCAD, MG, URIC, LIPD, PHOS, CMP, DBIL #### [facility] [address] [place], [place] [id number] MCH (RBC) [Entitic mass] 29.9 pg Normal 27.0-33.0 [facility] Specialist Comment on above: Performed By: #### C BCAD, MG, URIC, LIPD, PHOS, CMP, DBIL #### [facility] [address] [place], [place] [id number] MCHC (RBC) [Mass/Vol] 32.8 g/dL Normal 32.0-36.0 [facility] Specialist Comment on above: Performed By: #### C BCAD, MG, URIC, LIPD, PHOS, CMP, DBIL #### [facility] [address] [place], [place] [id number] MCV (RBC) [Entitic vol] 91 fL Normal 80-100 [facility] Specialist Comment on above: Performed By: #### C BCAD, MG, URIC, LIPD, PHOS, CMP, DBIL #### [facility] [address] [place], [place] [id number] Monocytes (Bld) [#/Vol] 0.5 10*3/uL Normal 0.2-0.9 [facility] Specialist Comment on above: Performed By: #### C BCAD, MG, URIC, LIPD, PHOS, CMP, DBIL #### [facility] [address] [place], [place] [id number] Monocytes/100 WBC (Bld) 8.5 % Normal [facility] Specialist Comment on above: Performed By: #### C BCAD, MG, URIC, LIPD, PHOS, CMP, DBIL #### [facility] [address] [place], [place] [id number] Neutrophils (Bld) [#/Vol] 4.7 10*3/uL Normal 1.5-7.8 [facility] Specialist Comment on above: Performed By: #### C BCAD, MG, URIC, LIPD, PHOS, CMP, DBIL #### [facility] [address] [place], [place] [id number] Neutrophils/100 WBC (Bld) 73.8 % Normal [facility] Specialist Comment on above: Performed By: #### C BCAD, MG, URIC, LIPD, PHOS, CMP, DBIL #### [facility] [address] [place], [place] [id number] Platelet mean volume (Bld) [Entitic vol] 10.40 fL Normal 7.50-12.50 [facility] Specialist Comment on above: Performed By: #### C BCAD, MG, URIC, LIPD, PHOS, CMP, DBIL #### [facility] [address] [place], [place] [id number] Platelets (Bld) [#/Vol] 266 10*3/uL Normal 140-400 [facility] Administrative Assistant Comment on above: Performed By: #### C BCAD, MG, URIC, LIPD, PHOS, CMP, DBIL #### [facility] [address] [place], [place] [id number] RBC (Bld) [#/Vol] 5.51 10*6/uL Normal 4.20-5.80 [facility] Specialist Comment on above: Performed By: #### C BCAD, MG, URIC, LIPD, PHOS, CMP, DBIL #### [facility] [address] [place], [place] [id number] RDW-SD 47.4 fL Normal 37.0-50.0 [facility] Specialist Comment on above: Performed By: #### C BCAD, MG, URIC, LIPD, PHOS, CMP, DBIL #### [facility] [address] [place], [place] [id number] WBC (Bld) [#/Vol] 6.3 10*3/uL Normal 3.8-11.0 [facility] Administrative Assistant Comment on above: Performed By: #### C BCAD, MG, URIC, LIPD, PHOS, CMP, DBIL #### [facility] [address] [place], [place] [id number] Comprehensive Metabolic Pane [facility] 07-29-2021 Albumin [Mass/Vol] 5.0 g/dL Normal 3.6-5.1 [place] [facility] Administrative Assistant Comment on above: Performed By: #### C BCAD, MG, URIC, LIPD, PHOS, CMP, DBIL #### [facility] [address] [place], [place] [id number] Albumin/Globulin [Mass ratio] 2.6 {ratio} High 1.0-2.5 [facility] Administrative Assistant Comment on above: Performed By: #### C BCAD, MG, URIC, LIPD, PHOS, CMP, DBIL #### [facility] [address] [place], [place] [id number] ALP [Catalytic activity/Vol] 73 U/L Normal 40-129 [place] [facility] Administrative Assistant Comment on above: Performed By: #### C BCAD, MG, URIC, LIPD, PHOS, CMP, DBIL #### [facility] [address] [place], [place] [id number] ALT [Catalytic activity/Vol] 27 U/L Normal 9-46 [facility] Specialist Comment on above: Result Comment: 03/17 Female reference range changed. Performed By: #### C BCAD, MG, URIC, LIPD, PHOS, CMP, DBIL #### [facility] [address] [place], [place] [id number] Anion gap [Moles/Vol] 18 mmol/L Normal 12-20 [facility] Comment on above: Result Comment: Effe ctive 04/22/2019 reference range changed. Performed By: #### C BCAD, MG, URIC, LIPD, PHOS, CMP, DBIL #### [facility] [address] [place], [place] [id number] AST [Catalytic activity/Vol] 23 U/L Normal 10-40 [facility] Comment on above: Performed By: #### C BCAD, MG, URIC, LIPD, PHOS, CMP, DBIL #### [facility] [address] [place], [place] [id number] Bilirubin [Mass/Vol] 0.68 mg/dL Normal 0.30-1.20 [facility] Comment on above: Performed By: #### C BCAD, MG, URIC, LIPD, PHOS, CMP, DBIL #### [facility] [address] [place], [place] [id number] BUN/CREA 16 Ratio Normal 6-22 [facility] Comment on above: Performed By: #### C BCAD, MG, URIC, LIPD, PHOS, CMP, DBIL #### [facility] [address] [place], [place] [id number] Calcium [Mass/Vol] 10.0 mg/dL Normal 8.6-10.2 [facility] Comment on above: Performed By: #### C BCAD, MG, URIC, LIPD, PHOS, CMP, DBIL #### [facility] [address] [place], [place] [id number] Chloride [Moles/Vol] 103 mmol/L Normal 98-107 [facility] Comment on above: Performed By: #### C BCAD, MG, URIC, LIPD, PHOS, CMP, DBIL #### [facility] [address] [place], [place] [id number] CO2 [Moles/Vol] 25 mmol/L Normal 20-31 [facility] Comment on above: Performed By: #### C BCAD, MG, URIC, LIPD, PHOS, CMP, DBIL #### [facility] [address] [place], [place] [id number] Creatinine [Mass/Vol] 1.1 mg/dL Normal 0.7-1.4 [facility] Comment on above: Performed By: #### C BCAD, MG, URIC, LIPD, PHOS, CMP, DBIL #### [facility] [address] [place], [place] [id number] eGFRAA 80 mL/min/1.73m2 Normal >60 [facility] Comment on above: Performed By: #### C BCAD, MG, URIC, LIPD, PHOS, CMP, DBIL #### [facility] [address] [place], [place] [id number] eGFRNAA 66 mL/min/1.73m2 Normal >60 [facility] Specialist Comment on above: Performed By: #### C BCAD, MG, URIC, LIPD, PHOS, CMP, DBIL #### [facility] [address] [place], [place] [id number] Globulin (S) [Mass/Vol] 1.9 g/dL Normal 1.9-3.7 [facility] Comment on above: Performed By: #### C BCAD, MG, URIC, LIPD, PHOS, CMP, DBIL #### [facility] [address] [place], [place] [id number] Glucose [Mass/Vol] 109 mg/dL High 65-99 [facility] Comment on above: Result Comment: For FASTING Glucose --- ADA reference ranges: Normal 65-99 mg/dl Prediabetes 100-125 Diabetes >/= 126 Performed By: #### C BCAD, MG, URIC, LIPD, PHOS, CMP, DBIL #### [facility] [address] [place], [place] [id number] Potassium [Moles/Vol] 4.7 mmol/L Normal 3.5-5.5 [facility] Administrative Assistant Comment on above: Performed By: #### C BCAD, MG, URIC, LIPD, PHOS, CMP, DBIL #### [facility] [address] [place], [place] [id number] Protein [Mass/Vol] 6.9 g/dL Normal 6.1-8.1 [facility] Administrative Assistant Comment on above: Performed By: #### C BCAD, MG, URIC, LIPD, PHOS, CMP, DBIL #### [facility] [address] [place], [place] [id number] Sodium [Moles/Vol] 141 mmol/L Normal 135-146 [facility] Administrative Assistant Comment on above: Performed By: #### C BCAD, MG, URIC, LIPD, PHOS, CMP, DBIL #### [facility] [address] [place], [place] [id number] Urea nitrogen [Mass/Vol] 18 mg/dL Normal 7-25 [facility] Administrative Assistant Comment on above: Performed By: #### C BCAD, MG, URIC, LIPD, PHOS, CMP, DBIL #### [facility] [address] [place], [place] [id number] Lipid Panelon 07-29-2021 Cholesterol [Mass/Vol] 121 mg/dL Low 125-200 [facility] Administrative Assistant Comment on above: Result Comment: Low risk < 200mg/dL Borderline risk 201-239 mg/dl High risk > or equal to 240 Performed By: #### C BCAD, MG, URIC, LIPD, PHOS, CMP, DBIL #### [facility] [address] [place], [place] [id number] Cholesterol in HDL [Mass/Vol] 41 mg/dL Normal >40 [facility] Administrative Assistant Comment on above: Result Comment: High Cardiovascular Risk HDL <40 mg/dL Low Cardiovascular Risk HDL > or equal to 60 mg/dl Performed By: #### C BCAD, MG, URIC, LIPD, PHOS, CMP, DBIL #### [facility] [address] [place], [place] [id number] Cholesterol in LDL [Mass/Vol] 56 mg/dL Normal [facility] Administrative Assistant Comment on above: Result Comment: LDL ATP III CLASSIFICATION LDL less than 100 mg/dl Optimal LDL 100-129 mg/dl Near or above optimal LDL 130-159 Borderline high LDL 160-189 High LDL greater than 189 mg/dl Very High Performed By: #### C BCAD, MG, URIC, LIPD, PHOS, CMP, DBIL #### [facility] [address] [place], [place] [id number] Cholesterol in VLDL [Mass/Vol] 24 mg/dL Normal [facility] Administrative Assistant Comment on above: Performed By: #### C BCAD, MG, URIC, LIPD, PHOS, CMP, DBIL #### [facility] [address] [place], [place] [id number] Cholesterol.total/C holesterol in HDL [Mass ratio] 3 {ratio} Normal [facility] Specialist Comment on above: Performed By: #### C BCAD, MG, URIC, LIPD, PHOS, CMP, DBIL #### [facility] [address] [place], [place] [id number] Triglyceride [Mass/Vol] 118 mg/dL Normal 30-150 [facility] Administrative Assistant Comment on above: Result Comment: TRIG ATPIII CLASSIFICATIONS TRIG less than 150 mg/dl Normal TRIG 150-199 mg/dl Borderline High TRIG 200-500 mg/dl High TRIG greather than 500 mg/dl Very High Performed By: #### C BCAD, MG, URIC, LIPD, PHOS, CMP, DBIL #### [facility] [address] [place], [place] [id number] Magnesiumon 07-29-2021 Magnesium [Mass/Vol] 2.0 mg/dL Normal 1.5-2.3 [facility] Administrative Assistant Comment on above: Performed By: #### C BCAD, MG, URIC, LIPD, PHOS, CMP, DBIL #### [facility] [address] [place], [place] [id number] Phosphoruson 07-29-2021 Phosphate [Mass/Vol] 3.3 mg/dL Normal 2.2-4.4 [facility] Administrative Assistant Comment on above: Performed By: #### C BCAD, MG, URIC, LIPD, PHOS, CMP, DBIL #### [facility] [address] [place], [place] [id number] Q - TACROLIMUSon 07-29-2021 TACROLIMUS, HIGHLY SENSITIVE, LC/MS/MS 6.3 mcg/L Normal [facility] Administrative Assistant Comment on above: Order Comment: [facility] performed at: [facility], [facility], [address], [address] [place], [address], Domestic Violence Advocate: Shaheed Bazzi MDQuest Collection Date/Time: [id number] Results Received Date/Time: [id number] Reported Date/Time: Result Comment: No d efinitive therapeutic or toxic ranges have been established. Optimal blood drug levels are influenced by type of transplant, patient response, time post- transplant, co-administration of other drugs, and drug formulation. The following trough range is a suggested guideline: 5.0-20.0 mcg/L. This test was developed and its analytical performance characteristics have been determined by [employer]. It has not been cleared or approved by the FDA. This assay has been validated pursuant to the CLIA regulations and is used for clinical purposes. Performed By: #### C BCAD, MG, URIC, LIPD, PHOS, CMP, DBIL #### [facility] [address] [place], [place] [id number] Uric Acidon 07-29-2021 URIC 6.1 mg/dL Normal 4.0-8.0 [facility] Administrative Assistant Comment on above: Result Comment: Refe rence range change 03/03/2017. Prior reference range F 2.4-5.7mg/dL. M 3.4-7.0 mg/dL. Performed By: #### C BCAD, MG, URIC, LIPD, PHOS, CMP, DBIL #### [facility] [address] [place], [place] [id number] Bilirubin, Directon 06-29-19 DBIL <0.2 Normal [facility] Administrative Assistant Comment on above: Result Comment: Refe rence range change 03/03/2017. Prior reference range 0.1-0.3 mg/dL. Performed By: #### C BCAD, MG, URIC, LIPD, PHOS, CMP, DBIL #### [facility] [address] [place], [place] [id number] Complete Blood Count with Au to Diffon 06-28-2021 Basophils (Bld) [#/Vol] 0.05 10*3/uL Normal 0.00-0.20 [facility] Comment on above: Performed By: #### C BCAD, MG, URIC, LIPD, PHOS, CMP, DBIL #### [facility] [address] [place], [place] [id number] Basophils/100 WBC (Bld) 0.8 % Normal [facility] Comment on above: Performed By: #### C BCAD, MG, URIC, LIPD, PHOS, CMP, DBIL #### [facility] [address] [place], [place] [id number] Eosinophils (Bld) [#/Vol] 0.10 10*3/uL Normal 0.02-0.50 [facility] Comment on above: Performed By: #### C BCAD, MG, URIC, LIPD, PHOS, CMP, DBIL #### [facility] [address] [place], [place] [id number] Eosinophils/100 WBC (Bld) 1.6 % Normal [facility] Administrative Assistant Comment on above: Performed By: #### C BCAD, MG, URIC, LIPD, PHOS, CMP, DBIL #### [facility] [address] [place], [place] [id number] Erythrocyte distribution width (RBC) [Ratio] 14.6 % Normal 11.0-15.0 [facility] Comment on above: Performed By: #### C BCAD, MG, URIC, LIPD, PHOS, CMP, DBIL #### [facility] [address] [place], [place] [id number] Hematocrit (Bld) [Volume fraction] 50.7 % High 38.5-50.0 [facility] Special[facility] Comment on above: Performed By: #### C BCAD, MG, URIC, LIPD, PHOS, CMP, DBIL #### [facility] [address] [place], [place] [id number] Hemoglobin (Bld) [Mass/Vol] 16.2 g/dL Normal 13.0-17.1 [facility] Administrative Assistant Comment on above: Performed By: #### C BCAD, MG, URIC, LIPD, PHOS, CMP, DBIL #### [facility] [address] [place], [place] [id number] Lymphocytes (Bld) [#/Vol] 1.0 10*3/uL Normal 0.9-3.9 [facility] Comment on above: Performed By: #### C BCAD, MG, URIC, LIPD, PHOS, CMP, DBIL #### [facility] [address] [place], [place] [id number] Lymphocytes/100 WBC (Bld) 16.2 % Normal [facility] Special[facility] Comment on above: Performed By: #### C BCAD, MG, URIC, LIPD, PHOS, CMP, DBIL #### [facility] [address] [place], [place] [id number] MCH (RBC) [Entitic mass] 30.0 pg Normal 27.0-33.0 [facility] Special[facility] Comment on above: Performed By: #### C BCAD, MG, URIC, LIPD, PHOS, CMP, DBIL #### [facility] [address] [place], [place] [id number] MCHC (RBC) [Mass/Vol] 32.0 g/dL Normal 32.0-36.0 [facility] Specialist Comment on above: Performed By: #### C BCAD, MG, URIC, LIPD, PHOS, CMP, DBIL #### [facility] [address] [place], [place] [id number] MCV (RBC) [Entitic vol] 94 fL Normal 80-100 [facility] Specialist Comment on above: Performed By: #### C BCAD, MG, URIC, LIPD, PHOS, CMP, DBIL #### [facility] [address] [place], [place] [id number] Monocytes (Bld) [#/Vol] 0.9 10*3/uL Normal 0.2-0.9 [facility] Special[facility] Comment on above: Performed By: #### C BCAD, MG, URIC, LIPD, PHOS, CMP, DBIL #### [facility] [address] [place], [place] [id number] Monocytes/100 WBC (Bld) 13.4 % Normal [facility] Specialist Comment on above: Performed By: #### C BCAD, MG, URIC, LIPD, PHOS, CMP, DBIL #### [facility] [address] [place], [place] [id number] Neutrophils (Bld) [#/Vol] 4.3 10*3/uL Normal 1.5-7.8 [facility] Special[facility] Comment on above: Performed By: #### C BCAD, MG, URIC, LIPD, PHOS, CMP, DBIL #### [facility] [address] [place], [place] [id number] Neutrophils/100 WBC (Bld) 67.7 % Normal [facility] Special[facility] Comment on above: Performed By: #### C BCAD, MG, URIC, LIPD, PHOS, CMP, DBIL #### [facility] [address] [place], [place] [id number] Platelet mean volume (Bld) [Entitic vol] 11.00 fL Normal 7.50-12.50 [facility] Special[facility] Comment on above: Performed By: #### C BCAD, MG, URIC, LIPD, PHOS, CMP, DBIL #### [facility] [address] [place], [place] [id number] Platelets (Bld) [#/Vol] 239 10*3/uL Normal 140-400 [facility] Specialist Comment on above: Performed By: #### C BCAD, MG, URIC, LIPD, PHOS, CMP, DBIL #### [facility] [address] [place], [place] [id number] RBC (Bld) [#/Vol] 5.40 10*6/uL Normal 4.20-5.80 [facility] Specialist Comment on above: Performed By: #### C BCAD, MG, URIC, LIPD, PHOS, CMP, DBIL #### [facility] [address] [place], [place] [id number] RDW-SD 50.2 fL High 37.0-50.0 [place] [facility] Administrative Assistant Comment on above: Performed By: #### C BCAD, MG, URIC, LIPD, PHOS, CMP, DBIL #### [facility] [address] [place], [place] [id number] WBC (Bld) [#/Vol] 6.4 10*3/uL Normal 3.8-11.0 [facility] [place] [facility] Administrative Assistant Comment on above: Performed By: #### C BCAD, MG, URIC, LIPD, PHOS, CMP, DBIL #### [facility] [address] [place], [place] [id number] Comprehensive Metabolic Pane [facility] 06-28-2021 Albumin [Mass/Vol] 4.9 g/dL Normal 3.6-5.1 [facility] [place] [facility] Administrative Assistant Comment on above: Performed By: #### C BCAD, MG, URIC, LIPD, PHOS, CMP, DBIL #### [facility] [address] [place], [place] [id number] Albumin/Globulin [Mass ratio] 3.3 {ratio} High 1.0-2.5 [facility] Administrative Assistant Comment on above: Performed By: #### C BCAD, MG, URIC, LIPD, PHOS, CMP, DBIL #### [facility] [address] [place], [place] [id number] ALP [Catalytic activity/Vol] 73 U/L Normal 40-129 [facility] Administrative Assistant Comment on above: Performed By: #### C BCAD, MG, URIC, LIPD, PHOS, CMP, DBIL #### [facility] [address] [place], [place] [id number] ALT [Catalytic activity/Vol] 26 U/L Normal 9-46 [facility] Administrative Assistant Comment on above: Result Comment: 03/17 Female reference range changed. Performed By: #### C BCAD, MG, URIC, LIPD, PHOS, CMP, DBIL #### [facility] [address] [place], [place] [id number] Anion gap [Moles/Vol] 16 mmol/L Normal 12-20 [facility] Administrative Assistant Comment on above: Result Comment: Effe ctive 04/22/2019 reference range changed. Performed By: #### C BCAD, MG, URIC, LIPD, PHOS, CMP, DBIL #### [facility] [address] [place], [place] [id number] AST [Catalytic activity/Vol] 23 U/L Normal 10-40 [facility] Comment on above: Performed By: #### C BCAD, MG, URIC, LIPD, PHOS, CMP, DBIL #### [facility] [address] [place], [place] [id number] Bilirubin [Mass/Vol] 0.76 mg/dL Normal 0.30-1.20 [facility] Specialist Comment on above: Performed By: #### C BCAD, MG, URIC, LIPD, PHOS, CMP, DBIL #### [facility] [address] [place], [place] [id number] BUN/CREA 15 Ratio Normal 6-22 [facility] Specialist Comment on above: Performed By: #### C BCAD, MG, URIC, LIPD, PHOS, CMP, DBIL #### [facility] [address] [place], [place] [id number] Calcium [Mass/Vol] 9.8 mg/dL Normal 8.6-10.2 [facility] Comment on above: Performed By: #### C BCAD, MG, URIC, LIPD, PHOS, CMP, DBIL #### [facility] [address] [place], [place] [id number] Chloride [Moles/Vol] 103 mmol/L Normal 98-107 [facility] Specialist Comment on above: Performed By: #### C BCAD, MG, URIC, LIPD, PHOS, CMP, DBIL #### [facility] [address] [place], [place] [id number] CO2 [Moles/Vol] 26 mmol/L Normal 20-31 [facility] Specialist Comment on above: Performed By: #### C BCAD, MG, URIC, LIPD, PHOS, CMP, DBIL #### [facility] [address] [place], [place] [id number] Creatinine [Mass/Vol] 1.1 mg/dL Normal 0.7-1.4 [facility] Comment on above: Performed By: #### C BCAD, MG, URIC, LIPD, PHOS, CMP, DBIL #### [facility] [address] [place], [place] [id number] eGFRAA 80 mL/min/1.73m2 Normal >60 [facility] Administrative Assistant Comment on above: Performed By: #### C BCAD, MG, URIC, LIPD, PHOS, CMP, DBIL #### [facility] [address] [place], [place] [id number] eGFRNAA 66 mL/min/1.73m2 Normal >60 [facility] Administrative Assistant Comment on above: Performed By: #### C BCAD, MG, URIC, LIPD, PHOS, CMP, DBIL #### [facility] [address] [place], [place] [id number] Globulin (S) [Mass/Vol] 1.5 g/dL Low 1.9-3.7 [facility] Administrative Assistant Comment on above: Performed By: #### C BCAD, MG, URIC, LIPD, PHOS, CMP, DBIL #### [facility] [address] [place], [place] [id number] Glucose [Mass/Vol] 130 mg/dL High 65-99 [facility] [place] [facility] Administrative Assistant Comment on above: Result Comment: For FASTING Glucose --- ADA reference ranges: Normal 65-99 mg/dl Prediabetes 100-125 Diabetes >/= 126 Performed By: #### C BCAD, MG, URIC, LIPD, PHOS, CMP, DBIL #### [facility] [address] [place], [place] [id number] Potassium [Moles/Vol] 4.6 mmol/L Normal 3.5-5.5 [facility] Administrative Assistant Comment on above: Performed By: #### C BCAD, MG, URIC, LIPD, PHOS, CMP, DBIL #### [facility] [address] [place], [place] [id number] Protein [Mass/Vol] 6.4 g/dL Normal 6.1-8.1 [place] [facility] [place] [facility] Administrative Assistant Comment on above: Performed By: #### C BCAD, MG, URIC, LIPD, PHOS, CMP, DBIL #### [facility] [address] [place], [place] [id number] Sodium [Moles/Vol] 140 mmol/L Normal 135-146 [facility] Comment on above: Performed By: #### C BCAD, MG, URIC, LIPD, PHOS, CMP, DBIL #### [facility] [address] [place], [place] [id number] Urea nitrogen [Mass/Vol] 17 mg/dL Normal 7-25 [facility] Specialist Comment on above: Performed By: #### C BCAD, MG, URIC, LIPD, PHOS, CMP, DBIL #### [facility] [address] [place], [place] [id number] Lipid Panelon 06-28-2021 Cholesterol [Mass/Vol] 111 mg/dL Low 125-200 [facility] Specialist Comment on above: Result Comment: Low risk < 200mg/dL Borderline risk 201-239 mg/dl High risk > or equal to 240 Performed By: #### C BCAD, MG, URIC, LIPD, PHOS, CMP, DBIL #### [facility] [address] [place], [place] [id number] Cholesterol in HDL [Mass/Vol] 38 mg/dL Low >40 [facility] Specialist Comment on above: Result Comment: High Cardiovascular Risk HDL <40 mg/dL Low Cardiovascular Risk HDL > or equal to 60 mg/dl Performed By: #### C BCAD, MG, URIC, LIPD, PHOS, CMP, DBIL #### [facility] [address] [place], [place] [id number] Cholesterol in LDL [Mass/Vol] 47 mg/dL Normal [facility] Comment on above: Result Comment: LDL ATP III CLASSIFICATION LDL less than 100 mg/dl Optimal LDL 100-129 mg/dl Near or above optimal LDL 130-159 Borderline high LDL 160-189 High LDL greater than 189 mg/dl Very High Performed By: #### C BCAD, MG, URIC, LIPD, PHOS, CMP, DBIL #### [facility] [address] [place], [place] [id number] Cholesterol in VLDL [Mass/Vol] 26 mg/dL Normal [facility] Specialist Comment on above: Performed By: #### C BCAD, MG, URIC, LIPD, PHOS, CMP, DBIL #### [facility] [address] [place], [place] [id number] Cholesterol.total/C holesterol in HDL [Mass ratio] 3 {ratio} Normal [facility] Administrative Assistant Comment on above: Performed By: #### C BCAD, MG, URIC, LIPD, PHOS, CMP, DBIL #### [facility] [address] [place], [place] [id number] Triglyceride [Mass/Vol] 132 mg/dL Normal 30-150 [facility] Administrative Assistant Comment on above: Result Comment: TRIG ATPIII CLASSIFICATIONS TRIG less than 150 mg/dl Normal TRIG 150-199 mg/dl Borderline High TRIG 200-500 mg/dl High TRIG greather than 500 mg/dl Very High Performed By: #### C BCAD, MG, URIC, LIPD, PHOS, CMP, DBIL #### [facility] [address] [place], [place] [id number] Magnesiumon 06-28-2021 Magnesium [Mass/Vol] 1.7 mg/dL Normal 1.5-2.3 [facility] Administrative Assistant Comment on above: Performed By: #### C BCAD, MG, URIC, LIPD, PHOS, CMP, DBIL #### [facility] [address] [place], [place] [id number] Phosphoruson 06-28-2021 Phosphate [Mass/Vol] 3.7 mg/dL Normal 2.2-4.4 [facility] Administrative Assistant Comment on above: Performed By: #### C BCAD, MG, URIC, LIPD, PHOS, CMP, DBIL #### [facility] [address] [place], [place] [id number] Uric Acidon 06-28-2021 URIC 6.0 mg/dL Normal 4.0-8.0 [facility] Administrative Assistant Comment on above: Result Comment: Refe rence range change 03/03/2017. Prior reference range F 2.4-5.7mg/dL. M 3.4-7.0 mg/dL. Performed By: #### C BCAD, MG, URIC, LIPD, PHOS, CMP, DBIL #### [facility] [address] [place], [place] [id number] Pulmonary Functionon 022 Pulmonary Function MR #: [id number] [facility] PT. Name: Vishal Duke Date: 06/02/2021 [...] Syed MD Date Trans: 06/06/2021 02:28 P/ [id number] cc: Rosa M Gonzales M.D. [address] [place] [address] [facility] [address] Normal [facility] Bilirubin, Directon 06-01-19 22 DBIL <0.2 Normal [facility] Administrative Assistant Comment on above: Result Comment: Refe rence range change 03/03/2017. Prior reference range 0.1-0.3 mg/dL. Performed By: #### C BCAD, MG, URIC, LIPD, PHOS, CMP, DBIL #### [facility] [address] [place], [place] [id number] Complete Blood Count with Au to Diffon 06-01-2021 Basophils (Bld) [#/Vol] 0.06 10*3/uL Normal 0.00-0.20 [facility] Administrative Assistant Comment on above: Performed By: #### C BCAD, MG, URIC, LIPD, PHOS, CMP, DBIL #### [facility] [address] [place], [place] [id number] Basophils/100 WBC (Bld) 0.9 % Normal [facility] Specialist Comment on above: Performed By: #### C BCAD, MG, URIC, LIPD, PHOS, CMP, DBIL #### [facility] [address] [place], [place] [id number] Eosinophils (Bld) [#/Vol] 0.12 10*3/uL Normal 0.02-0.50 [facility] Specialist Comment on above: Performed By: #### C BCAD, MG, URIC, LIPD, PHOS, CMP, DBIL #### [facility] [address] [place], [place] [id number] Eosinophils/100 WBC (Bld) 1.8 % Normal [facility] Specialist Comment on above: Performed By: #### C BCAD, MG, URIC, LIPD, PHOS, CMP, DBIL #### [facility] [address] [place], [place] [id number] Erythrocyte distribution width (RBC) [Ratio] 14.7 % Normal 11.0-15.0 [facility] Specialist Comment on above: Performed By: #### C BCAD, MG, URIC, LIPD, PHOS, CMP, DBIL #### [facility] [address] [place], [place] [id number] Hematocrit (Bld) [Volume fraction] 50.8 % High 38.5-50.0 [facility] Specialist Comment on above: Performed By: #### C BCAD, MG, URIC, LIPD, PHOS, CMP, DBIL #### [facility] [address] [place], [place] [id number] Hemoglobin (Bld) [Mass/Vol] 16.5 g/dL Normal 13.0-17.1 [facility] Specialist Comment on above: Performed By: #### C BCAD, MG, URIC, LIPD, PHOS, CMP, DBIL #### [facility] [address] [place], [place] [id number] Lymphocytes (Bld) [#/Vol] 1.1 10*3/uL Normal 0.9-3.9 [facility] Specialist Comment on above: Performed By: #### C BCAD, MG, URIC, LIPD, PHOS, CMP, DBIL #### [facility] [address] [place], [place] [id number] Lymphocytes/100 WBC (Bld) 16.1 % Normal [facility] Specialist Comment on above: Performed By: #### C BCAD, MG, URIC, LIPD, PHOS, CMP, DBIL #### [facility] [address] [place], [place] [id number] MCH (RBC) [Entitic mass] 29.8 pg Normal 27.0-33.0 [facility] Specialist Comment on above: Performed By: #### C BCAD, MG, URIC, LIPD, PHOS, CMP, DBIL #### [facility] [address] [place], [place] [id number] MCHC (RBC) [Mass/Vol] 32.5 g/dL Normal 32.0-36.0 [facility] Specialist Comment on above: Performed By: #### C BCAD, MG, URIC, LIPD, PHOS, CMP, DBIL #### [facility] [address] [place], [place] [id number] MCV (RBC) [Entitic vol] 92 fL Normal 80-100 [facility] Specialist Comment on above: Performed By: #### C BCAD, MG, URIC, LIPD, PHOS, CMP, DBIL #### [facility] [address] [place], [place] [id number] Monocytes (Bld) [#/Vol] 0.8 10*3/uL Normal 0.2-0.9 [facility] Specialist Comment on above: Performed By: #### C BCAD, MG, URIC, LIPD, PHOS, CMP, DBIL #### [facility] [address] [place], [place] [id number] Monocytes/100 WBC (Bld) 11.4 % Normal [facility] Specialist Comment on above: Performed By: #### C BCAD, MG, URIC, LIPD, PHOS, CMP, DBIL #### [facility] [address] [place], [place] [id number] Neutrophils (Bld) [#/Vol] 4.6 10*3/uL Normal 1.5-7.8 [facility] Comment on above: Performed By: #### C BCAD, MG, URIC, LIPD, PHOS, CMP, DBIL #### [facility] [address] [place], [place] [id number] Neutrophils/100 WBC (Bld) 69.2 % Normal [place] [facility] Comment on above: Performed By: #### C BCAD, MG, URIC, LIPD, PHOS, CMP, DBIL #### [facility] [address] [place], [place] [id number] Platelet mean volume (Bld) [Entitic vol] 10.60 fL Normal 7.50-12.50 [facility] Comment on above: Performed By: #### C BCAD, MG, URIC, LIPD, PHOS, CMP, DBIL #### [facility] [address] [place], [place] [id number] Platelets (Bld) [#/Vol] 285 10*3/uL Normal 140-400 [facility] Comment on above: Performed By: #### C BCAD, MG, URIC, LIPD, PHOS, CMP, DBIL #### [facility] [address] [place], [place] [id number] RBC (Bld) [#/Vol] 5.53 10*6/uL Normal 4.20-5.80 [facility] Comment on above: Performed By: #### C BCAD, MG, URIC, LIPD, PHOS, CMP, DBIL #### [facility] [address] [place], [place] [id number] RDW-SD 49.8 fL Normal 37.0-50.0 [facility] Comment on above: Performed By: #### C BCAD, MG, URIC, LIPD, PHOS, CMP, DBIL #### [facility] [address] [place], [place] [id number] WBC (Bld) [#/Vol] 6.6 10*3/uL Normal 3.8-11.0 [facility] Comment on above: Performed By: #### C BCAD, MG, URIC, LIPD, PHOS, CMP, DBIL #### [facility] [address] [place], [place] [id number] Comprehensive Metabolic Pane nitin 06-01-2021 Albumin [Mass/Vol] 5.0 g/dL Normal 3.6-5.1 [facility] Comment on above: Performed By: #### C BCAD, MG, URIC, LIPD, PHOS, CMP, DBIL #### [facility] [address] [place], [place] [id number] Albumin/Globulin [Mass ratio] 2.6 {ratio} High 1.0-2.5 [facility] Comment on above: Performed By: #### C BCAD, MG, URIC, LIPD, PHOS, CMP, DBIL #### [facility] [address] [place], [place] [id number] ALP [Catalytic activity/Vol] 93 U/L Normal 40-129 [facility] Comment on above: Performed By: #### C BCAD, MG, URIC, LIPD, PHOS, CMP, DBIL #### [facility] [address] [place], [place] [id number] ALT [Catalytic activity/Vol] 30 U/L Normal 9-46 [facility] Comment on above: Result Comment: 03/17 Female reference range changed. Performed By: #### C BCAD, MG, URIC, LIPD, PHOS, CMP, DBIL #### [facility] [address] [place], [place] [id number] Anion gap [Moles/Vol] 21 mmol/L High 12-20 [facility] Comment on above: Result Comment: Effe ctive 04/22/2019 reference range changed. Performed By: #### C BCAD, MG, URIC, LIPD, PHOS, CMP, DBIL #### [facility] [address] [place], [place] [id number] AST [Catalytic activity/Vol] 26 U/L Normal 10-40 [facility] Comment on above: Performed By: #### C BCAD, MG, URIC, LIPD, PHOS, CMP, DBIL #### [facility] [address] [place], [place] [id number] Bilirubin [Mass/Vol] 0.72 mg/dL Normal 0.30-1.20 [facility] Comment on above: Performed By: #### C BCAD, MG, URIC, LIPD, PHOS, CMP, DBIL #### [facility] [address] [place], [place] [id number] BUN/CREA 15 Ratio Normal 6-22 [facility] Comment on above: Performed By: #### C BCAD, MG, URIC, LIPD, PHOS, CMP, DBIL #### [facility] [address] [place], [place] [id number] Calcium [Mass/Vol] 10.4 mg/dL High 8.6-10.2 [facility] Comment on above: Performed By: #### C BCAD, MG, URIC, LIPD, PHOS, CMP, DBIL #### [facility] [address] [place], [place] [id number] Chloride [Moles/Vol] 104 mmol/L Normal 98-107 [facility] Comment on above: Performed By: #### C BCAD, MG, URIC, LIPD, PHOS, CMP, DBIL #### [facility] [address] [place], [place] [id number] CO2 [Moles/Vol] 24 mmol/L Normal 20-31 [facility] Comment on above: Performed By: #### C BCAD, MG, URIC, LIPD, PHOS, CMP, DBIL #### [facility] [address] [place], [place] [id number] Creatinine [Mass/Vol] 1.2 mg/dL Normal 0.7-1.4 [facility] Comment on above: Performed By: #### C BCAD, MG, URIC, LIPD, PHOS, CMP, DBIL #### [facility] [address] [place], [place] [id number] eGFRAA 79 mL/min/1.73m2 Normal >60 [facility] Comment on above: Performed By: #### C BCAD, MG, URIC, LIPD, PHOS, CMP, DBIL #### [facility] [address] [place], [place] [id number] eGFRNAA 65 mL/min/1.73m2 Normal >60 [facility] Comment on above: Performed By: #### C BCAD, MG, URIC, LIPD, PHOS, CMP, DBIL #### [facility] [address] [place], [place] [id number] Globulin (S) [Mass/Vol] 1.9 g/dL Normal 1.9-3.7 [facility] Administrative Assistant Comment on above: Performed By: #### C BCAD, MG, URIC, LIPD, PHOS, CMP, DBIL #### [facility] [address] [place], [place] [id number] Glucose [Mass/Vol] 108 mg/dL High 65-99 [facility] [place] [facility] Administrative Assistant Comment on above: Result Comment: For FASTING Glucose --- ADA reference ranges: Normal 65-99 mg/dl Prediabetes 100-125 Diabetes >/= 126 Performed By: #### C BCAD, MG, URIC, LIPD, PHOS, CMP, DBIL #### [facility] [address] [place], [place] [id number] Potassium [Moles/Vol] 5.0 mmol/L Normal 3.5-5.5 [facility] Administrative Assistant Comment on above: Performed By: #### C BCAD, MG, URIC, LIPD, PHOS, CMP, DBIL #### [facility] [address] [place], [place] [id number] Protein [Mass/Vol] 6.9 g/dL Normal 6.1-8.1 [facility] [place] [facility] Comment on above: Performed By: #### C BCAD, MG, URIC, LIPD, PHOS, CMP, DBIL #### [facility] [address] [place], [place] [id number] Sodium [Moles/Vol] 143 mmol/L Normal 135-146 [facility] [place] [facility] Administrative [facility] Comment on above: Performed By: #### C BCAD, MG, URIC, LIPD, PHOS, CMP, DBIL #### [facility] [address] [place], [place] [id number] Urea nitrogen [Mass/Vol] 17 mg/dL Normal 7-25 [facility] Administrative Assistant Comment on above: Performed By: #### C BCAD, MG, URIC, LIPD, PHOS, CMP, DBIL #### [facility] [address] [place], [place] [id number] Hemoglobin A1Con 06-01-2021 EAG 139.85 Normal [facility] Special[facility] Comment on above: Performed By: #### A 1C #### [facility] [address] [place], [place] [id number] HbA1c (Bld) [Mass fraction] 6.5 % High 4.0-6.0 [facility] Administrative Assistant Comment on above: Performed By: #### A 1C #### [facility] [address] [place], [place] [id number] Lipid Panelon 06-01-2021 Cholesterol [Mass/Vol] 129 mg/dL Normal 125-200 [facility] Administrative Assistant Comment on above: Result Comment: Low risk < 200mg/dL Borderline risk 201-239 mg/dl High risk > or equal to 240 Performed By: #### C BCAD, MG, URIC, LIPD, PHOS, CMP, DBIL #### [facility] [address] [place], [place] [id number] Cholesterol in HDL [Mass/Vol] 44 mg/dL Normal >40 [facility] Administrative Assistant Comment on above: Result Comment: High Cardiovascular Risk HDL <40 mg/dL Low Cardiovascular Risk HDL > or equal to 60 mg/dl Performed By: #### C BCAD, MG, URIC, LIPD, PHOS, CMP, DBIL #### [facility] [address] [place], [place] [id number] Cholesterol in LDL [Mass/Vol] 61 mg/dL Normal [facility] Administrative Assistant Comment on above: Result Comment: LDL ATP III CLASSIFICATION LDL less than 100 mg/dl Optimal LDL 100-129 mg/dl Near or above optimal LDL 130-159 Borderline high LDL 160-189 High LDL greater than 189 mg/dl Very High Performed By: #### C BCAD, MG, URIC, LIPD, PHOS, CMP, DBIL #### [facility] [address] [place], [place] [id number] Cholesterol in VLDL [Mass/Vol] 24 mg/dL Normal [facility] Administrative Assistant Comment on above: Performed By: #### C BCAD, MG, URIC, LIPD, PHOS, CMP, DBIL #### [facility] [address] [place], [place] [id number] Cholesterol.total/C holesterol in HDL [Mass ratio] 3 {ratio} Normal [facility] Administrative Assistant Comment on above: Performed By: #### C BCAD, MG, URIC, LIPD, PHOS, CMP, DBIL #### [facility] [address] [place], [place] [id number] Triglyceride [Mass/Vol] 119 mg/dL Normal 30-150 [facility] Administrative Assistant Comment on above: Result Comment: TRIG ATPIII CLASSIFICATIONS TRIG less than 150 mg/dl Normal TRIG 150-199 mg/dl Borderline High TRIG 200-500 mg/dl High TRIG greather than 500 mg/dl Very High Performed By: #### C BCAD, MG, URIC, LIPD, PHOS, CMP, DBIL #### [facility] [address] [place], [place] [id number] Magnesiumon 06-01-2021 Magnesium [Mass/Vol] 1.8 mg/dL Normal 1.5-2.3 [facility] Assistant Comment on above: Performed By: #### C BCAD, MG, URIC, LIPD, PHOS, CMP, DBIL #### [facility] [address] [place], [place] [id number] Phosphoruson 06-01-2021 Phosphate [Mass/Vol] 4.3 mg/dL Normal 2.2-4.4 [facility] Administrative Assistant Comment on above: Performed By: #### C BCAD, MG, URIC, LIPD, PHOS, CMP, DBIL #### [facility] [address] [place], [place] [id number] Uric Acidon 06-01-2021 URIC 6.1 mg/dL Normal 4.0-8.0 [facility] Administrative Assistant Comment on above: Result Comment: Refe rence range change 03/03/2017. Prior reference range F 2.4-5.7mg/dL. M 3.4-7.0 mg/dL. Performed By: #### C BCAD, MG, URIC, LIPD, PHOS, CMP, DBIL #### [facility] [address] [place], [place] [id number] Bilirubin, Directon 04-30-19 22 DBIL <0.2 Normal [facility] Administrative Assistant Comment on above: Result Comment: Refe rence range change 03/03/2017. Prior reference range 0.1-0.3 mg/dL. Performed By: #### C BCAD, MG, URIC, LIPD, PHOS, CMP, DBIL #### [facility] [address] [place], [place] [id number] Complete Blood Count with Au to Diffon 04-30-2021 Basophils (Bld) [#/Vol] 0.07 10*3/uL Normal 0.00-0.20 [facility] Comment on above: Performed By: #### C BCAD, MG, URIC, LIPD, PHOS, CMP, DBIL #### [facility] [address] [place], [place] [id number] Basophils/100 WBC (Bld) 1.1 % Normal [facility] Comment on above: Performed By: #### C BCAD, MG, URIC, LIPD, PHOS, CMP, DBIL #### [facility] [address] [place], [place] [id number] Eosinophils (Bld) [#/Vol] 0.12 10*3/uL Normal 0.02-0.50 [facility] Comment on above: Performed By: #### C BCAD, MG, URIC, LIPD, PHOS, CMP, DBIL #### [facility] [address] [place], [place] [id number] Eosinophils/100 WBC (Bld) 1.8 % Normal [facility] Comment on above: Performed By: #### C BCAD, MG, URIC, LIPD, PHOS, CMP, DBIL #### [facility] [address] [place], [place] [id number] Erythrocyte distribution width (RBC) [Ratio] 14.7 % Normal 11.0-15.0 [facility] Special[facility] Comment on above: Performed By: #### C BCAD, MG, URIC, LIPD, PHOS, CMP, DBIL #### [facility] [address] [place], [place] [id number] Hematocrit (Bld) [Volume fraction] 50.5 % High 38.5-50.0 [facility] Special[facility] Comment on above: Performed By: #### C BCAD, MG, URIC, LIPD, PHOS, CMP, DBIL #### [facility] [address] [place], [place] [id number] Hemoglobin (Bld) [Mass/Vol] 16.4 g/dL Normal 13.0-17.1 [facility] Special[facility] Comment on above: Performed By: #### C BCAD, MG, URIC, LIPD, PHOS, CMP, DBIL #### [facility] [address] [place], [place] [id number] Lymphocytes (Bld) [#/Vol] 1.0 10*3/uL Normal 0.9-3.9 [facility] Special[facility] Comment on above: Performed By: #### C BCAD, MG, URIC, LIPD, PHOS, CMP, DBIL #### [facility] [address] [place], [place] [id number] Lymphocytes/100 WBC (Bld) 14.7 % Normal [facility] Special[facility] Comment on above: Performed By: #### C BCAD, MG, URIC, LIPD, PHOS, CMP, DBIL #### [facility] [address] [place], [place] [id number] MCH (RBC) [Entitic mass] 29.4 pg Normal 27.0-33.0 [facility] Special[facility] Comment on above: Performed By: #### C BCAD, MG, URIC, LIPD, PHOS, CMP, DBIL #### [facility] [address] [place], [place] [id number] MCHC (RBC) [Mass/Vol] 32.5 g/dL Normal 32.0-36.0 [facility] Special[facility] Comment on above: Performed By: #### C BCAD, MG, URIC, LIPD, PHOS, CMP, DBIL #### [facility] [address] [place], [place] [id number] MCV (RBC) [Entitic vol] 91 fL Normal 80-100 [facility] Specialist Comment on above: Performed By: #### C BCAD, MG, URIC, LIPD, PHOS, CMP, DBIL #### [facility] [address] [place], [place] [id number] Monocytes (Bld) [#/Vol] 0.7 10*3/uL Normal 0.2-0.9 [facility] Specialist Comment on above: Performed By: #### C BCAD, MG, URIC, LIPD, PHOS, CMP, DBIL #### [facility] [address] [place], [place] [id number] Monocytes/100 WBC (Bld) 10.4 % Normal [facility] Comment on above: Performed By: #### C BCAD, MG, URIC, LIPD, PHOS, CMP, DBIL #### [facility] [address] [place], [place] [id number] Neutrophils (Bld) [#/Vol] 4.7 10*3/uL Normal 1.5-7.8 [facility] Comment on above: Performed By: #### C BCAD, MG, URIC, LIPD, PHOS, CMP, DBIL #### [facility] [address] [place], [place] [id number] Neutrophils/100 WBC (Bld) 71.4 % Normal [facility] Comment on above: Performed By: #### C BCAD, MG, URIC, LIPD, PHOS, CMP, DBIL #### [facility] [address] [place], [place] [id number] Platelet mean volume (Bld) [Entitic vol] 10.70 fL Normal 7.50-12.50 [facility] Special[facility] Comment on above: Performed By: #### C BCAD, MG, URIC, LIPD, PHOS, CMP, DBIL #### [facility] [address] [place], [place] [id number] Platelets (Bld) [#/Vol] 261 10*3/uL Normal 140-400 [facility] Special[facility] Comment on above: Performed By: #### C BCAD, MG, URIC, LIPD, PHOS, CMP, DBIL #### [facility] [address] [place], [place] [id number] RBC (Bld) [#/Vol] 5.57 10*6/uL Normal 4.20-5.80 [facility] Specialist Comment on above: Performed By: #### C BCAD, MG, URIC, LIPD, PHOS, CMP, DBIL #### [facility] [address] [place], [place] [id number] RDW-SD 49.2 fL Normal 37.0-50.0 [facility] Administrative Assistant Comment on above: Performed By: #### C BCAD, MG, URIC, LIPD, PHOS, CMP, DBIL #### [facility] [address] [place], [place] [id number] WBC (Bld) [#/Vol] 6.6 10*3/uL Normal 3.8-11.0 [facility] [place] [facility] Comment on above: Performed By: #### C BCAD, MG, URIC, LIPD, PHOS, CMP, DBIL #### [facility] [address] [place], [place] [id number] Comprehensive Metabolic Pane nitin 04-30-2021 Albumin [Mass/Vol] 4.9 g/dL Normal 3.6-5.1 [facility] [place] [facility] Assistant Comment on above: Performed By: #### C BCAD, MG, URIC, LIPD, PHOS, CMP, DBIL #### [facility] [address] [place], [place] [id number] Albumin/Globulin [Mass ratio] 2.6 {ratio} High 1.0-2.5 [facility] Specialist Comment on above: Performed By: #### C BCAD, MG, URIC, LIPD, PHOS, CMP, DBIL #### [facility] [address] [place], [place] [id number] ALP [Catalytic activity/Vol] 89 U/L Normal 40-129 [facility] Administrative Assistant Comment on above: Performed By: #### C BCAD, MG, URIC, LIPD, PHOS, CMP, DBIL #### [facility] [address] [place], [place] [id number] ALT [Catalytic activity/Vol] 30 U/L Normal 9-46 [facility] Administrative Assistant Comment on above: Result Comment: 03/17 Female reference range changed. Performed By: #### C BCAD, MG, URIC, LIPD, PHOS, CMP, DBIL #### [facility] [address] [place], [place] [id number] Anion gap [Moles/Vol] 20 mmol/L Normal 12-20 [facility] Administrative Assistant Comment on above: Result Comment: Effe ctive 04/22/2019 reference range changed. Performed By: #### C BCAD, MG, URIC, LIPD, PHOS, CMP, DBIL #### [facility] [address] [place], [place] [id number] AST [Catalytic activity/Vol] 23 U/L Normal 10-40 [facility] Specialist Comment on above: Performed By: #### C BCAD, MG, URIC, LIPD, PHOS, CMP, DBIL #### [facility] [address] [place], [place] [id number] Bilirubin [Mass/Vol] 0.52 mg/dL Normal 0.30-1.20 [facility] Specialist Comment on above: Performed By: #### C BCAD, MG, URIC, LIPD, PHOS, CMP, DBIL #### [facility] [address] [place], [place] [id number] BUN/CREA 18 Ratio Normal 6-22 [facility] Specialist Comment on above: Performed By: #### C BCAD, MG, URIC, LIPD, PHOS, CMP, DBIL #### [facility] [address] [place], [place] [id number] Calcium [Mass/Vol] 10.1 mg/dL Normal 8.6-10.2 [facility] Comment on above: Performed By: #### C BCAD, MG, URIC, LIPD, PHOS, CMP, DBIL #### [facility] [address] [place], [place] [id number] Chloride [Moles/Vol] 102 mmol/L Normal 98-107 [facility] Specialist Comment on above: Performed By: #### C BCAD, MG, URIC, LIPD, PHOS, CMP, DBIL #### [facility] [address] [place], [place] [id number] CO2 [Moles/Vol] 23 mmol/L Normal 20-31 [facility] Specialist Comment on above: Performed By: #### C BCAD, MG, URIC, LIPD, PHOS, CMP, DBIL #### [facility] [address] [place], [place] [id number] Creatinine [Mass/Vol] 1.3 mg/dL Normal 0.7-1.4 [facility] Specialist Comment on above: Performed By: #### C BCAD, MG, URIC, LIPD, PHOS, CMP, DBIL #### [facility] [address] [place], [place] [id number] eGFRAA 71 mL/min/1.73m2 Normal >60 [facility] Administrative Assistant Comment on above: Performed By: #### C BCAD, MG, URIC, LIPD, PHOS, CMP, DBIL #### [facility] [address] [place], [place] [id number] eGFRNAA 59 mL/min/1.73m2 Low >60 [facility] Administrative Assistant Comment on above: Performed By: #### C BCAD, MG, URIC, LIPD, PHOS, CMP, DBIL #### [facility] [address] [place], [place] [id number] Globulin (S) [Mass/Vol] 1.9 g/dL Normal 1.9-3.7 [facility] Administrative Assistant Comment on above: Performed By: #### C BCAD, MG, URIC, LIPD, PHOS, CMP, DBIL #### [facility] [address] [place], [place] [id number] Glucose [Mass/Vol] 128 mg/dL High 65-99 [place] [facility] [place] [facility] Administrative Assistant Comment on above: Result Comment: For FASTING Glucose --- ADA reference ranges: Normal 65-99 mg/dl Prediabetes 100-125 Diabetes >/= 126 Performed By: #### C BCAD, MG, URIC, LIPD, PHOS, CMP, DBIL #### [facility] [address] [place], [place] [id number] Potassium [Moles/Vol] 4.4 mmol/L Normal 3.5-5.5 [facility] Administrative Assistant Comment on above: Performed By: #### C BCAD, MG, URIC, LIPD, PHOS, CMP, DBIL #### [facility] [address] [place], [place] [id number] Protein [Mass/Vol] 6.8 g/dL Normal 6.1-8.1 [facility] [place] [facility] Administrative Assistant Comment on above: Performed By: #### C BCAD, MG, URIC, LIPD, PHOS, CMP, DBIL #### [facility] [address] [place], [place] [id number] Sodium [Moles/Vol] 140 mmol/L Normal 135-146 [facility] Comment on above: Performed By: #### C BCAD, MG, URIC, LIPD, PHOS, CMP, DBIL #### [facility] [address] [place], [place] [id number] Urea nitrogen [Mass/Vol] 23 mg/dL Normal 7-25 [facility] Specialist Comment on above: Performed By: #### C BCAD, MG, URIC, LIPD, PHOS, CMP, DBIL #### [facility] [address] [place], [place] [id number] Lipid Panelon 04-30-2021 Cholesterol [Mass/Vol] 123 mg/dL Low 125-200 [facility] Specialist Comment on above: Result Comment: Low risk < 200mg/dL Borderline risk 201-239 mg/dl High risk > or equal to 240 Performed By: #### C BCAD, MG, URIC, LIPD, PHOS, CMP, DBIL #### [facility] [address] [place], [place] [id number] Cholesterol in HDL [Mass/Vol] 41 mg/dL Normal >40 [facility] Specialist Comment on above: Result Comment: High Cardiovascular Risk HDL <40 mg/dL Low Cardiovascular Risk HDL > or equal to 60 mg/dl Performed By: #### C BCAD, MG, URIC, LIPD, PHOS, CMP, DBIL #### [facility] [address] [place], [place] [id number] Cholesterol in LDL [Mass/Vol] 51 mg/dL Normal [facility] Comment on above: Result Comment: LDL ATP III CLASSIFICATION LDL less than 100 mg/dl Optimal LDL 100-129 mg/dl Near or above optimal LDL 130-159 Borderline high LDL 160-189 High LDL greater than 189 mg/dl Very High Performed By: #### C BCAD, MG, URIC, LIPD, PHOS, CMP, DBIL #### [facility] [address] [place], [place] [id number] Cholesterol in VLDL [Mass/Vol] 31 mg/dL Normal [facility] Specialist Comment on above: Performed By: #### C BCAD, MG, URIC, LIPD, PHOS, CMP, DBIL #### [facility] [address] [place], [place] [id number] Cholesterol.total/C holesterol in HDL [Mass ratio] 3 {ratio} Normal [facility] Administrative Assistant Comment on above: Performed By: #### C BCAD, MG, URIC, LIPD, PHOS, CMP, DBIL #### [facility] [address] [place], [place] [id number] Triglyceride [Mass/Vol] 156 mg/dL High 30-150 [facility] Administrative Assistant Comment on above: Result Comment: TRIG ATPIII CLASSIFICATIONS TRIG less than 150 mg/dl Normal TRIG 150-199 mg/dl Borderline High TRIG 200-500 mg/dl High TRIG greather than 500 mg/dl Very High Performed By: #### C BCAD, MG, URIC, LIPD, PHOS, CMP, DBIL #### [facility] [address] [place], [place] [id number] Magnesiumon 04-30-2021 Magnesium [Mass/Vol] 2.0 mg/dL Normal 1.5-2.3 [facility] Administrative Assistant Comment on above: Performed By: #### C BCAD, MG, URIC, LIPD, PHOS, CMP, DBIL #### [facility] [address] [place], [place] [id number] Phosphoruson 04-30-2021 Phosphate [Mass/Vol] 4.2 mg/dL Normal 2.2-4.4 [facility] Administrative Assistant Comment on above: Performed By: #### C BCAD, MG, URIC, LIPD, PHOS, CMP, DBIL #### [facility] [address] [place], [place] [id number] Uric Acidon 04-30-2021 URIC 5.3 mg/dL Normal 4.0-8.0 [facility] Specialist Comment on above: Result Comment: Refe rence range change 03/03/2017. Prior reference range F 2.4-5.7mg/dL. M 3.4-7.0 mg/dL. Performed By: #### C BCAD, MG, URIC, LIPD, PHOS, CMP, DBIL #### [facility] [address] [place], [place] [id number] Office Visit (Cardiology)on 04-23-2021 Follow-up visit Diagnoses/Problems Assessed Cardiac arrest with ventricular fibrillation (427.5,427.41) (I46.9,I49.01) Coronary artery disease involving [place] coronary artery of [place] heart without angina pectoris (414.01) (I25.10) ICD [...] seen for follow-up of a hospitalization for [facility] D/C 12/11/2020 ICD insert. History of Present [...] he saw his regular Gunn by his internet architect to agreed with and endorsed the care we rendered. The device was interrogated it in their office and it appears to be functioning appropriately. Because of all the above he is pleased with his care. He'll be following up henceforth with the [place] internet architect and we advised him were always happy [...] transplantation History of Pacemaker insertion History of [place] tooth extraction Current Meds Medication NameInstruction Aspirin [...] Vital Signs Recorded: 23Apr2021 05:40PMRecorded: 23Apr2021 03:22PM [id number], RUE, [id number], RUE, Sitting Qygkbbryb07, RUE, Kytydde61, RUE, Sitting Heart Rate61, R Brachial Artery Height5 ft 11 in [id number] lb BMI Ijhscmadle07.57 kg/m2 BSA Calculated2.16 Tobacco Useb) No Fall [...] abdomen non-tender (more content not included)... Normal [facility] Tobacco Screening.on 022 Fall risk assessment c) Not medically indicated -[facility] y 250 DO Work Phone: Tobacco use status [facility] b) No -[facility] y 250 DO Work Phone: Bilirubin, Directon 03-29-20 21 DBIL <0.2 Normal [facility] Administrative Assistant Comment on above: Result Comment: Refe rence range change 03/03/2017. Prior reference range 0.1-0.3 mg/dL. Performed By: #### C BCAD, MG, URIC, LIPD, PHOS, CMP, DBIL #### [facility] [address] [place], [place] [id number] Complete Blood Count with Au to Diffon 03-29-2021 Basophils (Bld) [#/Vol] 0.06 10*3/uL Normal 0.00-0.20 [facility] Administrative Assistant Comment on above: Performed By: #### C BCAD, MG, URIC, LIPD, PHOS, CMP, DBIL #### [facility] [address] [place], [place] [id number] Basophils/100 WBC (Bld) 0.7 % Normal [facility] Administrative Assistant Comment on above: Performed By: #### C BCAD, MG, URIC, LIPD, PHOS, CMP, DBIL #### [facility] [address] [place], [place] [id number] Eosinophils (Bld) [#/Vol] 0.13 10*3/uL Normal 0.02-0.50 [facility] Administrative Assistant Comment on above: Performed By: #### C BCAD, MG, URIC, LIPD, PHOS, CMP, DBIL #### [facility] [address] [place], [place] [id number] Eosinophils/100 WBC (Bld) 1.6 % Normal [facility] Specialist Comment on above: Performed By: #### C BCAD, MG, URIC, LIPD, PHOS, CMP, DBIL #### [facility] [address] [place], [place] [id number] Erythrocyte distribution width (RBC) [Ratio] 14.9 % Normal 11.0-15.0 [facility] Specialist Comment on above: Performed By: #### C BCAD, MG, URIC, LIPD, PHOS, CMP, DBIL #### [facility] [address] [place], [place] [id number] Hematocrit (Bld) [Volume fraction] 51.2 % High 38.5-50.0 [facility] Specialist Comment on above: Performed By: #### C BCAD, MG, URIC, LIPD, PHOS, CMP, DBIL #### [facility] [address] [place], [place] [id number] Hemoglobin (Bld) [Mass/Vol] 16.0 g/dL Normal 13.0-17.1 [facility] Specialist Comment on above: Performed By: #### C BCAD, MG, URIC, LIPD, PHOS, CMP, DBIL #### [facility] [address] [place], [place] [id number] Lymphocytes (Bld) [#/Vol] 0.9 10*3/uL Normal 0.9-3.9 [facility] Specialist Comment on above: Performed By: #### C BCAD, MG, URIC, LIPD, PHOS, CMP, DBIL #### [facility] [address] [place], [place] [id number] Lymphocytes/100 WBC (Bld) 10.7 % Normal [facility] Specialist Comment on above: Performed By: #### C BCAD, MG, URIC, LIPD, PHOS, CMP, DBIL #### [facility] [address] [place], [place] [id number] MCH (RBC) [Entitic mass] 28.9 pg Normal 27.0-33.0 [facility] Specialist Comment on above: Performed By: #### C BCAD, MG, URIC, LIPD, PHOS, CMP, DBIL #### [facility] [address] [place], [place] [id number] MCHC (RBC) [Mass/Vol] 31.3 g/dL Low 32.0-36.0 [facility] Administrative Assistant Comment on above: Performed By: #### C BCAD, MG, URIC, LIPD, PHOS, CMP, DBIL #### [facility] [address] [place], [place] [id number] MCV (RBC) [Entitic vol] 92 fL Normal 80-100 [facility] Administrative Assistant Comment on above: Performed By: #### C BCAD, MG, URIC, LIPD, PHOS, CMP, DBIL #### [facility] [address] [place], [place] [id number] Monocytes (Bld) [#/Vol] 0.7 10*3/uL Normal 0.2-0.9 [facility] Administrative Assistant Comment on above: Performed By: #### C BCAD, MG, URIC, LIPD, PHOS, CMP, DBIL #### [facility] [address] [place], [place] [id number] Monocytes/100 WBC (Bld) 8.1 % Normal [facility] Administrative Assistant Comment on above: Performed By: #### C BCAD, MG, URIC, LIPD, PHOS, CMP, DBIL #### [facility] [address] [place], [place] [id number] Neutrophils (Bld) [#/Vol] 6.4 10*3/uL Normal 1.5-7.8 [facility] Administrative Assistant Comment on above: Performed By: #### C BCAD, MG, URIC, LIPD, PHOS, CMP, DBIL #### [facility] [address] [place], [place] [id number] Neutrophils/100 WBC (Bld) 78.5 % Normal [facility] Administrative Assistant Comment on above: Performed By: #### C BCAD, MG, URIC, LIPD, PHOS, CMP, DBIL #### [facility] [address] [place], [place] [id number] Platelet mean volume (Bld) [Entitic vol] 11.20 fL Normal 7.50-12.50 [facility] Administrative Assistant Comment on above: Performed By: #### C BCAD, MG, URIC, LIPD, PHOS, CMP, DBIL #### [facility] [address] [place], [place] [id number] Platelets (Bld) [#/Vol] 295 10*3/uL Normal 140-400 [facility] Administrative Assistant Comment on above: Performed By: #### C BCAD, MG, URIC, LIPD, PHOS, CMP, DBIL #### [facility] [address] [place], [place] [id number] RBC (Bld) [#/Vol] 5.54 10*6/uL Normal 4.20-5.80 [facility] Administrative Assistant Comment on above: Performed By: #### C BCAD, MG, URIC, LIPD, PHOS, CMP, DBIL #### [facility] [address] [place], [place] [id number] RDW-SD 51.0 fL High 37.0-50.0 [facility] Administrative Assistant Comment on above: Performed By: #### C BCAD, MG, URIC, LIPD, PHOS, CMP, DBIL #### [facility] [address] [place], [place] [id number] WBC (Bld) [#/Vol] 8.2 10*3/uL Normal 3.8-11.0 [facility] Administrative Assistant Comment on above: Performed By: #### C BCAD, MG, URIC, LIPD, PHOS, CMP, DBIL #### [facility] [address] [place], [place] [id number] Comprehensive Metabolic Pane [facility] 03-29-2021 Albumin [Mass/Vol] 4.9 g/dL Normal 3.6-5.1 [facility] Administrative Assistant Comment on above: Performed By: #### C BCAD, MG, URIC, LIPD, PHOS, CMP, DBIL #### [facility] [address] [place], [place] [id number] Albumin/Globulin [Mass ratio] 2.5 {ratio} Normal 1.0-2.5 [facility] Administrative Assistant Comment on above: Performed By: #### C BCAD, MG, URIC, LIPD, PHOS, CMP, DBIL #### [facility] [address] [place], [place] [id number] ALP [Catalytic activity/Vol] 86 U/L Normal 40-129 [facility] Specialist Comment on above: Performed By: #### C BCAD, MG, URIC, LIPD, PHOS, CMP, DBIL #### [facility] [address] [place], [place] [id number] ALT [Catalytic activity/Vol] 33 U/L Normal 9-46 [facility] Specialist Comment on above: Result Comment: 03/17 Female reference range changed. Performed By: #### C BCAD, MG, URIC, LIPD, PHOS, CMP, DBIL #### [facility] [address] [place], [place] [id number] Anion gap [Moles/Vol] 18 mmol/L Normal 12-20 [facility] Specialist Comment on above: Result Comment: Effe ctive 04/22/2019 reference range changed. Performed By: #### C BCAD, MG, URIC, LIPD, PHOS, CMP, DBIL #### [facility] [address] [place], [place] [id number] AST [Catalytic activity/Vol] 27 U/L Normal 10-40 [facility] Specialist Comment on above: Performed By: #### C BCAD, MG, URIC, LIPD, PHOS, CMP, DBIL #### [facility] [address] [place], [place] [id number] Bilirubin [Mass/Vol] 0.38 mg/dL Normal 0.30-1.20 [facility] Specialist Comment on above: Performed By: #### C BCAD, MG, URIC, LIPD, PHOS, CMP, DBIL #### [facility] [address] [place], [place] [id number] BUN/CREA 12 Ratio Normal 6-22 [facility] Specialist Comment on above: Performed By: #### C BCAD, MG, URIC, LIPD, PHOS, CMP, DBIL #### [facility] [address] [place], [place] [id number] Calcium [Mass/Vol] 10.3 mg/dL High 8.6-10.2 [facility] Comment on above: Performed By: #### C BCAD, MG, URIC, LIPD, PHOS, CMP, DBIL #### [facility] [address] [place], [place] [id number] Chloride [Moles/Vol] 105 mmol/L Normal 98-107 [facility] Specialist Comment on above: Performed By: #### C BCAD, MG, URIC, LIPD, PHOS, CMP, DBIL #### [facility] [address] [place], [place] [id number] CO2 [Moles/Vol] 23 mmol/L Normal 20-31 [facility] Specialist Comment on above: Performed By: #### C BCAD, MG, URIC, LIPD, PHOS, CMP, DBIL #### [facility] [address] [place], [place] [id number] Creatinine [Mass/Vol] 1.2 mg/dL Normal 0.7-1.4 [facility] Specialist Comment on above: Performed By: #### C BCAD, MG, URIC, LIPD, PHOS, CMP, DBIL #### [facility] [address] [place], [place] [id number] eGFRAA 79 mL/min/1.73m2 Normal >60 [facility] Specialist Comment on above: Performed By: #### C BCAD, MG, URIC, LIPD, PHOS, CMP, DBIL #### [facility] [address] [place], [place] [id number] eGFRNAA 65 mL/min/1.73m2 Normal >60 [facility] Specialist Comment on above: Performed By: #### C BCAD, MG, URIC, LIPD, PHOS, CMP, DBIL #### [facility] [address] [place], [place] [id number] Globulin (S) [Mass/Vol] 2.0 g/dL Normal 1.9-3.7 [facility] Specialist Comment on above: Performed By: #### C BCAD, MG, URIC, LIPD, PHOS, CMP, DBIL #### [facility] [address] [place], [place] [id number] Glucose [Mass/Vol] 125 mg/dL High 65-99 [facility] Comment on above: Result Comment: For FASTING Glucose --- ADA reference ranges: Normal 65-99 mg/dl Prediabetes 100-125 Diabetes >/= 126 Performed By: #### C BCAD, MG, URIC, LIPD, PHOS, CMP, DBIL #### [facility] [address] [place], [place] [id number] Potassium [Moles/Vol] 4.7 mmol/L Normal 3.5-5.5 [facility] Administrative Assistant Comment on above: Performed By: #### C BCAD, MG, URIC, LIPD, PHOS, CMP, DBIL #### [facility] [address] [place], [place] [id number] Protein [Mass/Vol] 6.9 g/dL Normal 6.1-8.1 [facility] Administrative Assistant Comment on above: Performed By: #### C BCAD, MG, URIC, LIPD, PHOS, CMP, DBIL #### [facility] [address] [place], [place] [id number] Sodium [Moles/Vol] 141 mmol/L Normal 135-146 [facility] Administrative Assistant Comment on above: Performed By: #### C BCAD, MG, URIC, LIPD, PHOS, CMP, DBIL #### [facility] [address] [place], [place] [id number] Urea nitrogen [Mass/Vol] 14 mg/dL Normal 7-25 [facility] Administrative Assistant Comment on above: Performed By: #### C BCAD, MG, URIC, LIPD, PHOS, CMP, DBIL #### [facility] [address] [place], [place] [id number] Lipid Panelon 03-29-2021 Cholesterol [Mass/Vol] 123 mg/dL Low 125-200 [facility] Administrative Assistant Comment on above: Result Comment: Low risk < 200mg/dL Borderline risk 201-239 mg/dl High risk > or equal to 240 Performed By: #### C BCAD, MG, URIC, LIPD, PHOS, CMP, DBIL #### [facility] [address] [place], [place] [id number] Cholesterol in HDL [Mass/Vol] 42 mg/dL Normal >40 [facility] Administrative Assistant Comment on above: Result Comment: High Cardiovascular Risk HDL <40 mg/dL Low Cardiovascular Risk HDL > or equal to 60 mg/dl Performed By: #### C BCAD, MG, URIC, LIPD, PHOS, CMP, DBIL #### [facility] [address] [facility] [place] [id number] Cholesterol in LDL [Mass/Vol] 58 mg/dL Normal [facility] Specialist Comment on above: Result Comment: LDL ATP III CLASSIFICATION LDL less than 100 mg/dl Optimal LDL 100-129 mg/dl Near or above optimal LDL 130-159 Borderline high LDL 160-189 High LDL greater than 189 mg/dl Very High Performed By: #### C BCAD, MG, URIC, LIPD, PHOS, CMP, DBIL #### [facility] [address] [place], [place] [id number] Cholesterol in VLDL [Mass/Vol] 23 mg/dL Normal [facility] Administrative Assistant Comment on above: Performed By: #### C BCAD, MG, URIC, LIPD, PHOS, CMP, DBIL #### [facility] [address] [place] [id number] Cholesterol.total/C holesterol in HDL [Mass ratio] 3 {ratio} Normal [facility] Specialist Comment on above: Performed By: #### C BCAD, MG, URIC, LIPD, PHOS, CMP, DBIL #### [facility] [address] [facility] [place] [id number] Triglyceride [Mass/Vol] 113 mg/dL Normal 30-150 [facility] Administrative Assistant Comment on above: Result Comment: TRIG ATPIII CLASSIFICATIONS TRIG less than 150 mg/dl Normal TRIG 150-199 mg/dl Borderline High TRIG 200-500 mg/dl High TRIG greather than 500 mg/dl Very High Performed By: #### C BCAD, MG, URIC, LIPD, PHOS, CMP, DBIL #### [facility] [address] [facility] [place] [id number] Magnesiumon 03-29-2021 Magnesium [Mass/Vol] 1.9 mg/dL Normal 1.5-2.3 [facility] Specialist Comment on above: Performed By: #### C BCAD, MG, URIC, LIPD, PHOS, CMP, DBIL #### [facility] [address] [place] [id number] Phosphoruson 03-29-2021 Phosphate [Mass/Vol] 4.1 mg/dL Normal 2.2-4.4 [facility] Administrative Assistant Comment on above: Performed By: #### C BCAD, MG, URIC, LIPD, PHOS, CMP, DBIL #### [facility] [address] [facility] [place] [id number] Uric Acidon 03-29-2021 URIC 7.5 mg/dL Normal 4.0-8.0 [facility] Administrative Assistant Comment on above: Result Comment: Refe rence range change 03/03/2017. Prior reference range F 2.4-5.7mg/dL. M 3.4-7.0 mg/dL. Performed By: #### C BCAD, MG, URIC, LIPD, PHOS, CMP, DBIL #### [facility] [address] [facility] [place], [place] [id number] [facility] CHEST 2 Son 12-24-2020 [facility] CHEST 2 [facility] Department of Radiology [address] [place] [address] == Patient Name: VISHAL DUKE : 1960 Sex: M Age: Race: White Pt. Location: [facility] Patient Status: D Ordered Date: 12/24/2020 3:50:00 PM Completed Date: 12/24/2020 03:48 PM Requesting Provider: ZULY VERDUZCO Attending Provider: Report Copy To: Signs & Symptoms: U07.1 COVID-19 I10 History: [place] Comments: covid Exam: [facility] CHEST 2 S == [facility] CHEST 2 VWS 12/24/2020 3:48 [...] process. Electronically signed: Giovana Garrido. Transcribed by: [email or web address], User Resident: Electronically Signed by: GIOVANA GARRIDO @ 12/25/2020 12:24 PM Normal [facility] Comment on above: Order Comment: No: D o not add to previous draw CV'D BY [facility] AT 1240 Glucose Poct Glucometerson 0 12-12-2020 Commemt1 Glu2: Cleaned Meter Normal [facility] Comment on above: Result Comment: PERF ORMED BY: [facility] [address] [facility] [place] [address] PATHOLOGIST WORM RAISER SHYANN OLIVIER M.D. Performed By: #### B MP, HS TROP, CBC, PT, PTT, BNP #### [facility] [address] [place] [address] Glucose [Mass/Vol] 147 mg/dL Normal [facility] Comment on above: Result Comment: [place] Glucose Reference Range is dependent on time and content of last meal. Glucose of more than 200 mg/dL in a nonstressed, ambulatory subject supports the diagnosis of Diabetes Mellitus. Performed By: #### B MP, HS TROP, CBC, PT, PTT, BNP #### [facility] [address] [place] [address] [place] Glucose [Mass/Vol] 107 mg/dL Normal [facility] Comment on above: Result Comment: [place] om Glucose Reference Range is dependent on time and content of last meal. Glucose of more than 200 mg/dL in a nonstressed, ambulatory subject supports the diagnosis of Diabetes Mellitus. PERFORMED BY: [place] [address] PATHOLOGIST WORM RAISER SHYANN OLIVIER M.D. Performed By: #### B MP, HS TROP, CBC, PT, PTT, BNP #### [address] XR chest 2V*on 12-12-2020 XR chest 2V* [facility] [address] [place] [address] XRay Report Signed Patient: Vishal Duke MR#: [id number] : 1960 Acct:[id number] Age/Sex: 59 / M ADM Date: 12/08/20 Loc: Room: [address] [place] [address] Type: ADM IN Attending Dr: Leonardo Storey [...] Farah Jr., M.D.12/12/2020 9:15 AM Dictation Location: [place] [address] Transcribed By: [facility] 12/12/20914 Dictated By: Faraz Farah Jr, MD 12/12/20908 Signed By: 12/12/2015 Normal [facility] Basic Metabolic Panelon 08 Calcium [Mass/Vol] 8.9 mg/dL Normal 8.2-10.2 [facility] Comment on above: Performed By: #### B MP, HS TROP, CBC, PT, PTT, BNP #### [address] Chloride [Moles/Vol] 105 mmol/L Normal 95-114 [facility] Comment on above: Performed By: #### B MP, HS TROP, CBC, PT, PTT, BNP #### [address] CO2 [Moles/Vol] 22.1 mmol/L Normal 22.0-30.0 [facility] Comment on above: Performed By: #### B MP, HS TROP, CBC, PT, PTT, BNP #### [address] Creatinine [Mass/Vol] 1.08 mg/dL Normal 0.64-1.27 [facility] Comment on above: Performed By: #### B MP, HS TROP, CBC, PT, PTT, BNP #### [address] Creatinine Clr Calc Pharmacy 78.44 [facility] Comment on above: Result Comment: PERF ORMED BY: [place] [address] PATHOLOGIST WORM RAISER SHYANN OLIVIER M.D. Performed By: #### B MP, HS TROP, CBC, PT, PTT, BNP #### [address] Estimated GFR ( Nata > 60 [facility] Comment on above: Result Comment: GFR estimated reference range: According to KDOQI guidelines, <60 ml/min/1.73m2 is sufficient to diagnose a patient with chronic kidney disease. Performed By: #### B MP, HS TROP, CBC, PT, PTT, BNP #### [address] Estimated GFR (Non- Am > 60 [facility] Comment on above: Performed By: #### B MP, HS TROP, CBC, PT, PTT, BNP #### [address] [address] [place] Glucose [Mass/Vol] 138 mg/dL High 70-100 [facility] Comment on above: Result Comment: [facility] Glucose Reference Range is dependent on time and content of last meal. Glucose of more than 200 mg/dL in a nonstressed, ambulatory subject supports the diagnosis of Diabetes Mellitus. ADA recommended reference range Performed By: #### B MP, HS TROP, CBC, PT, PTT, BNP #### [address] Potassium [Moles/Vol] 4.2 mmol/L Normal 3.5-5.1 [facility] Comment on above: Performed By: #### B MP, HS TROP, CBC, PT, PTT, BNP #### [address] Sodium [Moles/Vol] 138 mmol/L Normal 136-146 [facility] Comment on above: Performed By: #### B MP, HS TROP, CBC, PT, PTT, BNP #### [address] Urea nitrogen [Mass/Vol] 11 mg/dL Normal 9-23 [facility] Comment on above: Performed By: #### B MP, HS TROP, CBC, PT, PTT, BNP #### [address] Complete Blood Count Auto Di ffon 12-11-2020 Basophils (Bld) [#/Vol] 0.1 10*3/uL Normal 0.0-0.2 [facility] Comment on above: Result Comment: PERF ORMED BY: [place] [address] PATHOLOGIST WORM RAISER SHYANN OLIVIER M.D. Performed By: #### B MP, HS TROP, CBC, PT, PTT, BNP #### [place] [address] [place] Basophils/100 WBC (Bld) 0.7 % Normal . [facility] Comment on above: Performed By: #### B MP, HS TROP, CBC, PT, PTT, BNP #### [address] Eosinophils (Bld) [#/Vol] 0.1 10*3/uL Normal 0.0-0.45 [facility] Comment on above: Performed By: #### B MP, HS TROP, CBC, PT, PTT, BNP #### [address] Eosinophils/100 WBC (Bld) 1.3 % Normal . [facility] Comment on above: Performed By: #### B MP, HS TROP, CBC, PT, PTT, BNP #### [address] Erythrocyte distribution width (RBC) [Ratio] 15.2 % High 12.0-14.8 [facility] Comment on above: Performed By: #### B MP, HS TROP, CBC, PT, PTT, BNP #### [address] Hematocrit (Bld) [Volume fraction] 38.0 % Low 38.8-50.0 [facility] Comment on above: Performed By: #### B MP, HS TROP, CBC, PT, PTT, BNP #### [address] Hemoglobin (Bld) [Mass/Vol] 13.0 g/dL Normal 13.0-17.0 [facility] Comment on above: Performed By: #### B MP, HS TROP, CBC, PT, PTT, BNP #### [address] Lymphocytes (Bld) [#/Vol] 0.7 10*3/uL Low 1.00-4.8 [facility] Comment on above: Performed By: #### B MP, HS TROP, CBC, PT, PTT, BNP #### [address] Lymphocytes/100 WBC (Bld) 7.7 % Normal . [facility] Comment on above: Performed By: #### B MP, HS TROP, CBC, PT, PTT, BNP #### [address] MCH (RBC) [Entitic mass] 31.5 pg Normal 27.5-35.2 [facility] Comment on above: Performed By: #### B MP, HS TROP, CBC, PT, PTT, BNP #### [address] MCV (RBC) [Entitic vol] 91.7 fL Normal 83.5-101 [facility] Comment on above: Performed By: #### B MP, HS TROP, CBC, PT, PTT, BNP #### [address] Mean Corpuscular HGB Conc 34.3 g/dL Normal 32.5-35.6 [facility] Comment on above: Performed By: #### B MP, HS TROP, CBC, PT, PTT, BNP #### [address] Monocytes (Bld) [#/Vol] 0.9 10*3/uL High 0.0-0.8 [facility] Comment on above: Performed By: #### B MP, HS TROP, CBC, PT, PTT, BNP #### [address] Monocytes/100 WBC (Bld) 9.4 % Normal . [facility] Comment on above: Performed By: #### B MP, HS TROP, CBC, PT, PTT, BNP #### [address] Neutrophils (Bld) [#/Vol] 7.5 10*3/uL Normal 1.8-7.7 [facility] Comment on above: Performed By: #### B MP, HS TROP, CBC, PT, PTT, BNP #### [address] Neutrophils/100 WBC (Bld) 80.9 % Normal . [facility] Comment on above: Performed By: #### B MP, HS TROP, CBC, PT, PTT, BNP #### [address] [address] [place] Nucleated RBC/100 WBC (Bld) [Ratio] 0.0 % Normal 0-0.5 [facility] Comment on above: Performed By: #### B MP, HS TROP, CBC, PT, PTT, BNP #### [address] Platelet mean volume (Bld) [Entitic vol] 7.6 fL Normal 6.6-10.1 [facility] Comment on above: Performed By: #### B MP, HS TROP, CBC, PT, PTT, BNP #### [address] Platelets (Bld) [#/Vol] 385 10*3/uL Normal 150-450 [facility] Comment on above: Performed By: #### B MP, HS TROP, CBC, PT, PTT, BNP #### [address] RBC (Bld) [#/Vol] 4.14 10*6/uL Normal 3.90-5.60 [facility] Comment on above: Performed By: #### B MP, HS TROP, CBC, PT, PTT, BNP #### [address] WBC (Bld) [#/Vol] 9.3 10*3/uL Normal 4.5-11.0 [facility] Comment on above: Performed By: #### B MP, HS TROP, CBC, PT, PTT, BNP #### [address] Glucose Poct Glucometerson 0 12-11-2020 Glucose [Mass/Vol] 129 mg/dL Normal [facility] Comment on above: Result Comment: [facility] Glucose Reference Range is dependent on time and content of last meal. Glucose of more than 200 mg/dL in a nonstressed, ambulatory subject supports the diagnosis of Diabetes Mellitus. PERFORMED BY: [place] [address] PATHOLOGIST WORM RAISER JIANLAN SUN M.D. Performed By: #### B MP, HS TROP, CBC, PT, PTT, BNP #### [facility] [address] Partial Thromboplastin Timeo n 12-11-2020 aPTT Coag (Bld) [Time] 32.7 s Normal 25.1-36.5 [facility] Comment on above: Result Comment: PERF ORMED BY: [place] [address] PATHOLOGIST WORM RAISER SHYANN OLIVIER M.D. Performed By: #### B MP, HS TROP, CBC, PT, PTT, BNP #### [facility] [address] Prothrombin Time INRon 12-11 INR Coag (PPP) [Relative time] 1.2 {INR} Normal [facility] Comment on above: Result Comment: INR Therapeutic [...] HS TROP, CBC, PT, PTT, BNP #### [address] PT Coag (PPP) [Time] 13.8 s High 9.0-12.9 [facility] Comment on above: Performed By: #### B MP, HS TROP, CBC, PT, PTT, BNP #### [facility] [address] [place] [address] [place] XR chest 1V portableon 12-11 XR chest 1V portable [facility] [address] [place] [address] XRay Report Signed Patient: Vishal Duke MR#: [id number] : 1960 Acct:[id number] Age/Sex: 59 / M ADM Date: 12/08/20 Loc: Room: [address] [place] [address] Type: ADM IN Attending Dr: Leonardo Storey [...] Biju Ag M.D.12/11/2020 12:40 PM Dictation Location: [place] [address] Transcribed By: [facility] 12/11/20 1240 Dictated By: Biju Ag MD 12/11/20 1236 Signed By: 12/11/20 1240 Normal [facility] Complete Blood Count Auto Di ffon 12-10-2020 Basophils (Bld) [#/Vol] 0.0 10*3/uL Normal 0.0-0.2 [facility] Comment on above: Result Comment: PERF ORMED BY: [place] [address] PATHOLOGIST WORM RAISER SHYANN OLIVIER M.D. Performed By: #### B MP, HS TROP, CBC, PT, PTT, BNP #### [facility] [address] [place] [address] [place] Basophils/100 WBC (Bld) 0.3 % Normal . [facility] Comment on above: Performed By: #### B MP, HS TROP, CBC, PT, PTT, BNP #### [facility] [address] [place] [address] [place] Eosinophils (Bld) [#/Vol] 0.1 10*3/uL Normal 0.0-0.45 [facility] Comment on above: Performed By: #### B MP, HS TROP, CBC, PT, PTT, BNP #### [address] Eosinophils/100 WBC (Bld) 0.5 % Normal . [facility] Comment on above: Performed By: #### B MP, HS TROP, CBC, PT, PTT, BNP #### [address] Erythrocyte distribution width (RBC) [Ratio] 15.1 % High 12.0-14.8 [facility] Comment on above: Performed By: #### B MP, HS TROP, CBC, PT, PTT, BNP #### [address] Hematocrit (Bld) [Volume fraction] 39.5 % Normal 38.8-50.0 [facility] Comment on above: Performed By: #### B MP, HS TROP, CBC, PT, PTT, BNP #### [address] Hemoglobin (Bld) [Mass/Vol] 13.1 g/dL Normal 13.0-17.0 [facility] Comment on above: Performed By: #### B MP, HS TROP, CBC, PT, PTT, BNP #### [address] Lymphocytes (Bld) [#/Vol] 0.5 10*3/uL Low 1.00-4.8 [facility] Comment on above: Performed By: #### B MP, HS TROP, CBC, PT, PTT, BNP #### [address] Lymphocytes/100 WBC (Bld) 4.0 % Normal . [facility] Comment on above: Performed By: #### B MP, HS TROP, CBC, PT, PTT, BNP #### [address] MCH (RBC) [Entitic mass] 31.2 pg Normal 27.5-35.2 [facility] Comment on above: Performed By: #### B MP, HS TROP, CBC, PT, PTT, BNP #### [address] MCV (RBC) [Entitic vol] 94.1 fL Normal 83.5-101 [facility] Comment on above: Performed By: #### B MP, HS TROP, CBC, PT, PTT, BNP #### [address] Mean Corpuscular HGB Conc 33.2 g/dL Normal 32.5-35.6 [facility] Comment on above: Performed By: #### B MP, HS TROP, CBC, PT, PTT, BNP #### [address] Monocytes (Bld) [#/Vol] 0.8 10*3/uL Normal 0.0-0.8 [facility] Comment on above: Performed By: #### B MP, HS TROP, CBC, PT, PTT, BNP #### [address] Monocytes/100 WBC (Bld) 6.6 % Normal . [facility] Comment on above: Performed By: #### B MP, HS TROP, CBC, PT, PTT, BNP #### [address] Neutrophils (Bld) [#/Vol] 10.5 10*3/uL High 1.8-7.7 [facility] Comment on above: Performed By: #### B MP, HS TROP, CBC, PT, PTT, BNP #### [address] Neutrophils/100 WBC (Bld) 88.6 % Normal . [facility] Comment on above: Performed By: #### B MP, HS TROP, CBC, PT, PTT, BNP #### [address] Nucleated RBC/100 WBC (Bld) [Ratio] 0.1 % Normal 0-0.5 [facility] Comment on above: Performed By: #### B MP, HS TROP, CBC, PT, PTT, BNP #### [address] Platelet mean volume (Bld) [Entitic vol] 8.1 fL Normal 6.6-10.1 [facility] Comment on above: Performed By: #### B MP, HS TROP, CBC, PT, PTT, BNP #### [address] Platelets (Bld) [#/Vol] 403 10*3/uL Normal 150-450 [facility] Comment on above: Performed By: #### B MP, HS TROP, CBC, PT, PTT, BNP #### [address] RBC (Bld) [#/Vol] 4.20 10*6/uL Normal 3.90-5.60 [facility] Comment on above: Performed By: #### B MP, HS TROP, CBC, PT, PTT, BNP #### [address] WBC (Bld) [#/Vol] 11.9 10*3/uL High 4.5-11.0 [facility] Comment on above: Performed By: #### B MP, HS TROP, CBC, PT, PTT, BNP #### [address] Comprehensive Metabolic Pane nitin 12-10-2020 Albumin [Mass/Vol] 3.1 g/dL Low 3.2-5.5 [facility] Comment on above: Result Comment: --- 12/10/201240 --- Alb previously reported as: 2.8 L gm/dL Performed By: #### B MP, HS TROP, CBC, PT, PTT, BNP #### [address] Albumin/Globulin [Mass ratio] 0.9 {ratio} Normal [facility] Comment on above: Result Comment: --- 12/10/201240 --- A/G Ratio previously reported as: 0.8 Performed By: #### B MP, HS TROP, CBC, PT, PTT, BNP #### [address] ALP [Catalytic activity/Vol] 98 U/L High 32-92 [facility] Comment on above: Result Comment: --- 12/10/201241 --- Alk Phos previously reported as: 91 U/L Performed By: #### B MP, HS TROP, CBC, PT, PTT, BNP #### [address] ALT [Catalytic activity/Vol] 123 U/L High 10-60 [facility] Comment on above: Result Comment: --- 12/10/201241 --- ALT previously reported as: 116 H U/L Performed By: #### B MP, HS TROP, CBC, PT, PTT, BNP #### [address] AST [Catalytic activity/Vol] 91 U/L High 10-42 [facility] Comment on above: Result Comment: --- 12/10/201241 --- AST previously reported as: 82 H U/L Performed By: #### B MP, HS TROP, CBC, PT, PTT, BNP #### [address] Bilirubin [Mass/Vol] 0.7 mg/dL Normal 0.3-1.2 [facility] Comment on above: Result Comment: --- 12/10/201240 --- TOTAL BILI previously reported as: 0.9 mg/dL Performed By: #### B MP, HS TROP, CBC, PT, PTT, BNP #### [address] Calcium [Mass/Vol] 9.0 mg/dL Normal 8.2-10.2 [facility] Comment on above: Result Comment: --- 12/10/201240 --- CA previously reported as: 8.2 mg/dL Performed By: #### B MP, HS TROP, CBC, PT, PTT, BNP #### [address] Chloride [Moles/Vol] 99 mmol/L Normal 95-114 [facility] Comment on above: Result Comment: --- 12/10/201240 --- CL previously reported as: 97 mmol/L Performed By: #### B MP, HS TROP, CBC, PT, PTT, BNP #### [address] CO2 [Moles/Vol] 20.4 mmol/L Low 22.0-30.0 [facility] Comment on above: Result Comment: --- 12/10/201240 --- CO2 previously reported as: 21.7 L mmol/L Performed By: #### B MP, HS TROP, CBC, PT, PTT, BNP #### [address] Creatinine [Mass/Vol] 1.09 mg/dL Normal 0.64-1.27 [facility] Comment on above: Result Comment: --- 12/10/201239 --- Creat previously reported as: 1.01 mg/dL Performed By: #### B MP, HS TROP, CBC, PT, PTT, BNP #### [address] Creatinine Clr Calc Pharmacy 77.72 [facility] Comment on above: Result Comment: --- 12/10/201239 --- Creat Calc PHA previously reported as: 83.87 PERFORMED BY: [place] [address] PATHOLOGIST WORM RAISER SHYANN OLIVIER M.D. Performed By: #### B MP, HS TROP, CBC, PT, PTT, BNP #### [address] Estimated GFR ( Nata > 60 [facility] Comment on above: Result Comment: --- 12/10/20 1227 --- GFReAA previously reported as: > 60 mL/Min GFR estimated reference range: According to KDOQI guidelines, <60 ml/min/1.73m2 is sufficient to diagnose a patient with chronic kidney disease. Performed By: #### B MP, HS TROP, CBC, PT, PTT, BNP #### [facility] [address] Estimated GFR (Non- Am > 60 Normal [facility] Comment on above: Result Comment: --- 12/10/20 1227 --- GFRe previously reported as: > 60 mL/Min Performed By: #### B MP, HS TROP, CBC, PT, PTT, BNP #### [facility] [address] Globulin (S) [Mass/Vol] 3.3 g/dL Normal [facility] Comment on above: Result Comment: --- 12/10/20 1227 --- Glob previously reported as: 3.3 gm/dL Performed By: #### B MP, HS TROP, CBC, PT, PTT, BNP #### [address] Glucose [Mass/Vol] 160 mg/dL High 70-100 [facility] Comment on above: Result Comment: Resu lts [...] HS TROP, CBC, PT, PTT, BNP #### [address] Potassium [Moles/Vol] 4.1 mmol/L Normal 3.5-5.1 [facility] Comment on above: Result Comment: --- 12/10/20 1241 --- K previously reported as: 3.8 mmol/L Performed By: #### B MP, HS TROP, CBC, PT, PTT, BNP #### [address] Protein [Mass/Vol] 6.4 g/dL Normal 6.1-7.9 [facility] Comment on above: Result Comment: --- 12/10/20 1241 --- TP previously reported as: 6.1 gm/dL Performed By: #### B MP, HS TROP, CBC, PT, PTT, BNP #### [facility] [address] Sodium [Moles/Vol] 134 mmol/L Low 136-146 [facility] Comment on above: Result Comment: --- 12/10/20 1241 --- NA previously reported as: 128 # L mmol/L Performed By: #### B MP, HS TROP, CBC, PT, PTT, BNP #### [facility] [address] Urea nitrogen [Mass/Vol] 10 mg/dL Normal 9-23 [facility] Comment on above: Result Comment: --- 12/10/20 1239 --- BUN previously reported as: 10 mg/dL Performed By: #### B MP, HS TROP, CBC, PT, PTT, BNP #### [facility] [address] ECG 12 lead ECGon 12-10-2020 ECG 12 lead ECG [facility] [place] [address] Electrocardiograph Report Signed Patient: Vishal Duke MR#: [id number] : 1960 Acct:[id number] Age/Sex: 59 / M ADM Date: 12/08/20 Loc: Room: [address] [place] [address] Type: ADM IN Attending Dr: Leonardo Storey [...] in Lateral leads Confirmed by [id number] on 12/10/2020 9:00:58 AM Referred By: Electronically Signed By:KADEN DAUGHERTY MD [facility] Transcribed By: MUS Dictated By: Kaden Daugherty MD, [facility] 12/10/20 0652 Signed By: 12/10/20 0901 Normal [facility] echo transthoracicon [facility] echo transthoracic [facility] [place] [address] Echocardiogram Signed Patient: Vishal Duke MR#: [id number] : 1960 Acct:[id number] Age/Sex: 59 / M ADM Date: 12/08/20 Loc: Room: [address] [place] [address] Type: ADM IN Attending Dr: Leonardo Storey MD Ordering Provider: Leonardo Storey MD Date of Service: 12/09/20 [facility] echo transthoracic: torsades de pointes Copies to: [...] DO 12/10/20 0816 Signed By: 12/10/20 1150 [facility] Glucose Poct Glucometerson 0 12-10-2020 Glucose [Mass/Vol] 157 mg/dL [facility] Comment on above: Result Comment: [facility] Glucose Reference Range is dependent on time and content of last meal. Glucose of more than 200 mg/dL in a nonstressed, ambulatory subject supports the diagnosis of Diabetes Mellitus. PERFORMED BY: [place] [address] PATHOLOGIST WORM RAISER SHYANN OLIVIER M.D. Performed By: #### B MP, HS TROP, CBC, PT, PTT, BNP #### [address] Commemt1 Glu2: Cleaned Meter Normal [facility] Comment on above: Result Comment: PERF ORMED BY: [facility] [address] [place] [address] PATHOLOGIST WORM RAISER SHYANN OLIVIER M.D. Performed By: #### B MP, HS TROP, CBC, PT, PTT, BNP #### [address] Glucose [Mass/Vol] 122 mg/dL Normal [facility] Comment on above: Result Comment: [place] Glucose Reference Range is dependent on time and content of last meal. Glucose of more than 200 mg/dL in a nonstressed, ambulatory subject supports the diagnosis of Diabetes Mellitus. Performed By: #### B MP, HS TROP, CBC, PT, PTT, BNP #### [address] Glucose [Mass/Vol] 179 mg/dL Normal [facility] Comment on above: Result Comment: [place] Glucose Reference Range is dependent on time and content of last meal. Glucose of more than 200 mg/dL in a nonstressed, ambulatory subject supports the diagnosis of Diabetes Mellitus. PERFORMED BY: [place] [address] PATHOLOGIST WORM RAISER SHYANN OLIVIER M.D. Performed By: #### B MP, HS TROP, CBC, PT, PTT, BNP #### [address] Troponin I High Sensitivityo n 12-10-2020 Troponin I High Sensitivity 9777 pg/mL Off scale high 0-20 [facility] Comment on above: Result Comment: PERF ORMED BY: [place] [address] PATHOLOGIST WORM RAISER SHYANN OLIVIER M.D. Performed By: #### B MP, HS TROP, CBC, PT, PTT, BNP #### [place] [address] [place] XR chest 1V portableon 12-10 XR chest 1V portable [facility] [place] [address] [place] [address] XRay Report Signed Patient: Vishal Duke MR#: [id number] : 1960 Acct:[id number] Age/Sex: 59 / M ADM Date: 12/08/20 Loc: Room: [address] [place] [address] Type: ADM IN Attending Dr: Leonardo Storey [...] Ajith Saleh M.D.12/10/2020 8:05 AM Dictation Location: [place] [address] Transcribed By: [facility] 12/10/20804 Dictated By: Ajith Saleh II, MD 12/10/20802 Signed By: 12/10/20804 Normal [facility] Basic Metabolic Panelon 11-16 Calcium [Mass/Vol] 9.6 mg/dL Normal 8.2-10.2 [facility] Comment on above: Performed By: #### B MP, HS TROP, CBC, PT, PTT, BNP #### [facility] [address] [place] [address] [place] Chloride [Moles/Vol] 101 mmol/L Normal 95-114 [facility] Comment on above: Performed By: #### B MP, HS TROP, CBC, PT, PTT, BNP #### [facility] [address] [place] [id number] [place] CO2 [Moles/Vol] 23.3 mmol/L Normal 22.0-30.0 [facility] Comment on above: Performed By: #### B MP, HS TROP, CBC, PT, PTT, BNP #### [address] Creatinine [Mass/Vol] 0.97 mg/dL Normal 0.64-1.27 [facility] Comment on above: Performed By: #### B MP, HS TROP, CBC, PT, PTT, BNP #### [address] Creatinine Clr Calc Pharmacy 87.33 [facility] Comment on above: Result Comment: PERF ORMED BY: [place] [address] PATHOLOGIST WORM RAISER SHYANN OLIVIER M.D. Performed By: #### B MP, HS TROP, CBC, PT, PTT, BNP #### [address] Estimated GFR ( Nata > 60 [facility] Comment on above: Result Comment: GFR estimated reference range: According to KDOQI guidelines, <60 ml/min/1.73m2 is sufficient to diagnose a patient with chronic kidney disease. Performed By: #### B MP, HS TROP, CBC, PT, PTT, BNP #### [address] Estimated GFR (Non- Am > 60 [facility] Comment on above: Performed By: #### B MP, HS TROP, CBC, PT, PTT, BNP #### [address] Glucose [Mass/Vol] 128 mg/dL High 70-100 [facility] Comment on above: Result Comment: [place] Glucose Reference Range is dependent on time and content of last meal. Glucose of more than 200 mg/dL in a nonstressed, ambulatory subject supports the diagnosis of Diabetes Mellitus. ADA recommended reference range Performed By: #### B MP, HS TROP, CBC, PT, PTT, BNP #### [address] Potassium [Moles/Vol] 4.2 mmol/L Normal 3.5-5.1 [facility] Comment on above: Performed By: #### B MP, HS TROP, CBC, PT, PTT, BNP #### [address] Sodium [Moles/Vol] 139 mmol/L Normal 136-146 [facility] Comment on above: Performed By: #### B MP, HS TROP, CBC, PT, PTT, BNP #### [address] Urea nitrogen [Mass/Vol] 15 mg/dL Normal 9-23 [facility] Comment on above: Performed By: #### B MP, HS TROP, CBC, PT, PTT, BNP #### [address] Complete Blood Count Auto Di ffon 12-09-2020 Basophils (Bld) [#/Vol] 0.1 10*3/uL Normal 0.0-0.2 [facility] Comment on above: Result Comment: PERF ORMED BY: [place] [address] PATHOLOGIST WORM RAISER SHYANN OLIVIER M.D. Performed By: #### B MP, HS TROP, CBC, PT, PTT, BNP #### [address] Basophils/100 WBC (Bld) 1.0 % Normal . [facility] Comment on above: Performed By: #### B MP, HS TROP, CBC, PT, PTT, BNP #### [address] Eosinophils (Bld) [#/Vol] 0.2 10*3/uL Normal 0.0-0.45 [facility] Comment on above: Performed By: #### B MP, HS TROP, CBC, PT, PTT, BNP #### [address] Eosinophils/100 WBC (Bld) 2.8 % Normal . [facility] Comment on above: Performed By: #### B MP, HS TROP, CBC, PT, PTT, BNP #### [address] Erythrocyte distribution width (RBC) [Ratio] 15.0 % High 12.0-14.8 [facility] Comment on above: Performed By: #### B MP, HS TROP, CBC, PT, PTT, BNP #### [address] Hematocrit (Bld) [Volume fraction] 41.9 % Normal 38.8-50.0 [facility] Comment on above: Performed By: #### B MP, HS TROP, CBC, PT, PTT, BNP #### [address] Hemoglobin (Bld) [Mass/Vol] 14.2 g/dL Normal 13.0-17.0 [facility] Comment on above: Performed By: #### B MP, HS TROP, CBC, PT, PTT, BNP #### [address] Lymphocytes (Bld) [#/Vol] 1.1 10*3/uL Normal 1.00-4.8 [facility] Comment on above: Performed By: #### B MP, HS TROP, CBC, PT, PTT, BNP #### [address] Lymphocytes/100 WBC (Bld) 13.9 % Normal . [facility] Comment on above: Performed By: #### B MP, HS TROP, CBC, PT, PTT, BNP #### [address] MCH (RBC) [Entitic mass] 31.4 pg Normal 27.5-35.2 [facility] Comment on above: Performed By: #### B MP, HS TROP, CBC, PT, PTT, BNP #### [address] MCV (RBC) [Entitic vol] 92.5 fL Normal 83.5-101 [facility] Comment on above: Performed By: #### B MP, HS TROP, CBC, PT, PTT, BNP #### [address] Mean Corpuscular HGB Conc 33.9 g/dL Normal 32.5-35.6 [facility] Comment on above: Performed By: #### B MP, HS TROP, CBC, PT, PTT, BNP #### [address] Monocytes (Bld) [#/Vol] 0.6 10*3/uL Normal 0.0-0.8 [facility] Comment on above: Performed By: #### B MP, HS TROP, CBC, PT, PTT, BNP #### [address] Monocytes/100 WBC (Bld) 8.3 % Normal . [facility] Comment on above: Performed By: #### B MP, HS TROP, CBC, PT, PTT, BNP #### [address] Neutrophils (Bld) [#/Vol] 5.8 10*3/uL Normal 1.8-7.7 [facility] Comment on above: Performed By: #### B MP, HS TROP, CBC, PT, PTT, BNP #### [address] Neutrophils/100 WBC (Bld) 74.0 % Normal . [facility] Comment on above: Performed By: #### B MP, HS TROP, CBC, PT, PTT, BNP #### [address] Nucleated RBC/100 WBC (Bld) [Ratio] 0.0 % Normal 0-0.5 [facility] Comment on above: Performed By: #### B MP, HS TROP, CBC, PT, PTT, BNP #### [address] Platelet mean volume (Bld) [Entitic vol] 8.0 fL Normal 6.6-10.1 [facility] Comment on above: Performed By: #### B MP, HS TROP, CBC, PT, PTT, BNP #### [facility] [address] Platelets (Bld) [#/Vol] 409 10*3/uL Normal 150-450 [facility] Comment on above: Performed By: #### B MP, HS TROP, CBC, PT, PTT, BNP #### [address] RBC (Bld) [#/Vol] 4.53 10*6/uL Normal 3.90-5.60 [facility] Comment on above: Performed By: #### B MP, HS TROP, CBC, PT, PTT, BNP #### [address] WBC (Bld) [#/Vol] 7.8 10*3/uL Normal 4.5-11.0 [facility] Comment on above: Performed By: #### B MP, HS TROP, CBC, PT, PTT, BNP #### [address] Creatine Kinaseon 12-09-2020 CK [Catalytic activity/Vol] 128 U/L Normal 22-269 [facility] Comment on above: Order Comment: get a ll labs @0315 per rn Performed By: #### B MP, HS TROP, CBC, PT, PTT, BNP #### [address] Creatinine Kinase MBon 12-09 CK.MB [Mass/Vol] 15.6 ng/mL High 0.6-6.3 [facility] Comment on above: Order Comment: get a ll labs @0315 per rn Performed By: #### B MP, HS TROP, CBC, PT, PTT, BNP #### [address] CKMB Relative Index 12.1 % High 0.00-2.50 [facility] Comment on above: Order Comment: get a ll labs @0315 per rn Performed By: #### B MP, HS TROP, CBC, PT, PTT, BNP #### [address] [place] [address] [facility] ECG 12 lead ECGon 12-09-2020 ECG 12 lead ECG [facility] [place] [address] [place] [address] Electrocardiograph Report Signed Patient: Vishal Duke MR#: [id number] : 1960 Acct:[id number] Age/Sex: 59 / M ADM Date: 12/08/20 Loc: Room: [address] [place] [address] Type: ADM IN Attending Dr: Leonardo Storey [...] 12/09/20 0816 Signed By: 12/09/20 1315 Normal [facility] Magnesiumon 12-09-2020 Magnesium [Mass/Vol] 2.0 mg/dL Normal 1.6-2.6 [facility] Comment on above: Order Comment: Comme nt Add on to am Result Comment: PERF ORMED BY: [address] [place] [address] PATHOLOGIST WORM RAISER SHYANN OLIVIER M.D. Performed By: #### B MP, HS TROP, CBC, PT, PTT, BNP #### [facility] [address] [place], [place] [id number] [facility] Partial Thromboplastin Timeo n 12-09-2020 aPTT Coag (Bld) [Time] 37.7 s High 25.1-36.5 [facility] Comment on above: Result Comment: PERF ORMED BY: [place] [address] PATHOLOGIST WORM RAISER SHYANN OLIVIER M.D. Performed By: #### B MP, HS TROP, CBC, PT, PTT, BNP #### [facility] [address] [place] [address] [place] Prothrombin Time INRon 12-09 INR Coag (PPP) [Relative time] 1.2 {INR} Normal [facility] Comment on above: Result Comment: INR Therapeutic [...] HS TROP, CBC, PT, PTT, BNP #### [facility] [address] [place] [address] PT Coag (PPP) [Time] 13.8 s High 9.0-12.9 [facility] Comment on above: Performed By: #### B MP, HS TROP, CBC, PT, PTT, BNP #### [facility] [address] [place] [address] Troponin I High Sensitivityo n 12-09-2020 Troponin I High Sensitivity 1641 pg/mL Off scale high 0-20 [facility] Comment on above: Order Comment: * RN to call lab when pt returns hko Result Comment: PERF ORMED BY: [place] [address] PATHOLOGIST WORM RAISER SHYANN OLIVIER M.D. Performed By: #### B MP, HS TROP, CBC, PT, PTT, BNP #### [place] [id number] [facility] Troponin I High Sensitivity 2472 pg/mL Off scale high 0-20 [facility] Comment on above: Order Comment: Comme nt during code blue Result Comment: PERF ORMED BY: [place] [address] PATHOLOGIST WORM RAISER SHYANN OLIVIER M.D. Performed By: #### B MP, HS TROP, CBC, PT, PTT, BNP #### [address] Troponin I High Sensitivity 1363 pg/mL Off scale high 0-20 [facility] Comment on above: Order Comment: get a ll labs @0315 per rn Result Comment: PERF ORMED BY: [place] [address] PATHOLOGIST WORM RAISER SHYANN OLIVIER M.D. Performed By: #### B MP, HS TROP, CBC, PT, PTT, BNP #### [address] B-Type Natriuretic Peptideon 12-08-2020 Natriuretic peptide B (Bld) [Mass/Vol] 199.0 pg/mL High 5-100 [facility] Comment on above: Result Comment: PERF ORMED BY: [place] [address] PATHOLOGIST WORM RAISER SHYANN OLIVIER M.D. Performed By: #### B MP, HS TROP, CBC, PT, PTT, BNP #### [address] Basic Metabolic Panelon 11-16 Calcium [Mass/Vol] 10.1 mg/dL Normal 8.2-10.2 [facility] Comment on above: Performed By: #### B MP, HS TROP, CBC, PT, PTT, BNP #### [place] [address] [place] Chloride [Moles/Vol] 101 mmol/L Normal 95-114 [facility] Comment on above: Performed By: #### B MP, HS TROP, CBC, PT, PTT, BNP #### [place] [address] [place] CO2 [Moles/Vol] 23.2 mmol/L Normal 22.0-30.0 [facility] Comment on above: Performed By: #### B MP, HS TROP, CBC, PT, PTT, BNP #### [address] Creatinine [Mass/Vol] 1.15 mg/dL Normal 0.64-1.27 [facility] Comment on above: Performed By: #### B MP, HS TROP, CBC, PT, PTT, BNP #### [address] Creatinine Clr Calc Pharmacy 81.22 [facility] Comment on above: Result Comment: PERF ORMED BY: [place] [address] PATHOLOGIST WORM RAISER SHYANN OLIVIER M.D. Performed By: #### B MP, HS TROP, CBC, PT, PTT, BNP #### [address] Estimated GFR ( Nata > 60 [facility] Comment on above: Result Comment: GFR estimated reference range: According to KDOQI guidelines, <60 ml/min/1.73m2 is sufficient to diagnose a patient with chronic kidney disease. Performed By: #### B MP, HS TROP, CBC, PT, PTT, BNP #### [address] Estimated GFR (Non- Am > 60 [facility] Comment on above: Performed By: #### B MP, HS TROP, CBC, PT, PTT, BNP #### [place] [address] [place] Glucose [Mass/Vol] 153 mg/dL High 70-100 [facility] Comment on above: Result Comment: [place] Glucose Reference Range is dependent on time and content of last meal. Glucose of more than 200 mg/dL in a nonstressed, ambulatory subject supports the diagnosis of Diabetes Mellitus. ADA recommended reference range Performed By: #### B MP, HS TROP, CBC, PT, PTT, BNP #### [place] [id number] [place] Potassium [Moles/Vol] 4.5 mmol/L Normal 3.5-5.1 [facility] Comment on above: Performed By: #### B MP, HS TROP, CBC, PT, PTT, BNP #### [facility] [address] Sodium [Moles/Vol] 139 mmol/L Normal 136-146 [facility] Comment on above: Performed By: #### B MP, HS TROP, CBC, PT, PTT, BNP #### [facility] [address] Urea nitrogen [Mass/Vol] 15 mg/dL Normal 9-23 [facility] Comment on above: Performed By: #### B MP, HS TROP, CBC, PT, PTT, BNP #### [facility] [address] COVID-19 Antigenon 1 COVID-19 Antigen Healthcare [...] ------ Tessa Disclaimer The Tessa SARS Antigen GISESL does not differentiate Tessa Disclaimer between SARS-CoV and SARS-CoV-2. COVID19 Blank Space ------ Tessa Disclaimer This test was developed and its performance Tessa Disclaimer characteristic determined by [employer] and Tessa Disclaimer validated at [facility]. This Tessa Disclaimer test has not been [...] Emergency Use Authorization for Coronavirus Tessa Disclaimer during the Public Health Emergency) Tessa Disclaimer [...] terminated or revoked sooner. PERFORMED BY: [facility] [address] PATHOLOGIST WORM RAISER SHYANN OLIVIER M.D. [facility] Comment on above: Performed By: #### S VICTORIA COVID-19 TESSA, COVID 19 [facility] #### [facility] [address] [place] [address] [facility] 12[facility]2020 SARS-CoV-2 (COVID-19) RNA ADELINE+probe Ql (Unsp spec) Negative Normal Negative [facility] Comment on above: Order Comment: Healt hcare Worker?: N Result Comment: Testing for SARS-CoV-2 by RT-PCR This test was developed and its performance characteristics determined by [employer] and validated at the [facility]. This test has not been FDA cleared [...] is terminated or revoked sooner. PERFORMED BY: [place] [address] PATHOLOGIST WORM RAISER SHYANN OLIVIER M.D. Performed By: #### B MP, HS TROP, CBC, PT, PTT, BNP #### [facility] [address] [place], [place] [id number] [facility] CT abdomen pelvis wo conon 0 12-08-2020 CT abdomen pelvis wo con [facility] [place] [address] [place] [address] CT Scan Report Signed Patient: Vishal Duke MR#: [id number] : 1960 Acct:[id number] Age/Sex: 59 / M ADM Date: 12/08/20 Loc: ER Room: Type: [facility] ER Attending Dr: Ordering Provider: Irwin D Lutz, DO Date of Service: 12/08/20 CT/CT abdomen [...] Biju Ag M.D.12/08/2020 11:16 AM Dictation Location: [place] [address] Transcribed By: [facility] 12/08/20 1116 Dictated By: Biju Ag MD 12/08/20 1102 Signed By: 12/08/20 1116 Normal [facility] Complete Blood Count Auto Di ffon 12-08-2020 Basophils (Bld) [#/Vol] 0.1 10*3/uL Normal 0.0-0.2 [facility] Comment on above: Result Comment: PERF ORMED BY: [place] [address] PATHOLOGIST WORM RAISER SHYANN OLIVIER M.D. Performed By: #### B MP, HS TROP, CBC, PT, PTT, BNP #### [address] Basophils/100 WBC (Bld) 0.6 % Normal . [facility] Comment on above: Performed By: #### B MP, HS TROP, CBC, PT, PTT, BNP #### [address] Eosinophils (Bld) [#/Vol] 0.2 10*3/uL Normal 0.0-0.45 [facility] Comment on above: Performed By: #### B MP, HS TROP, CBC, PT, PTT, BNP #### [address] Eosinophils/100 WBC (Bld) 2.5 % Normal . [facility] Comment on above: Performed By: #### B MP, HS TROP, CBC, PT, PTT, BNP #### [address] Erythrocyte distribution width (RBC) [Ratio] 15.2 % High 12.0-14.8 [facility] Comment on above: Performed By: #### B MP, HS TROP, CBC, PT, PTT, BNP #### [address] Hematocrit (Bld) [Volume fraction] 41.7 % Normal 38.8-50.0 [facility] Comment on above: Performed By: #### B MP, HS TROP, CBC, PT, PTT, BNP #### [address] Hemoglobin (Bld) [Mass/Vol] 14.0 g/dL Normal 13.0-17.0 [facility] Comment on above: Performed By: #### B MP, HS TROP, CBC, PT, PTT, BNP #### [address] Lymphocytes (Bld) [#/Vol] 0.9 10*3/uL Low 1.00-4.8 [facility] Comment on above: Performed By: #### B MP, HS TROP, CBC, PT, PTT, BNP #### [address] Lymphocytes/100 WBC (Bld) 10.9 % Normal . [facility] Comment on above: Performed By: #### B MP, HS TROP, CBC, PT, PTT, BNP #### [address] MCH (RBC) [Entitic mass] 31.5 pg Normal 27.5-35.2 [facility] Comment on above: Performed By: #### B MP, HS TROP, CBC, PT, PTT, BNP #### [address] MCV (RBC) [Entitic vol] 93.7 fL Normal 83.5-101 [facility] Comment on above: Performed By: #### B MP, HS TROP, CBC, PT, PTT, BNP #### [address] Mean Corpuscular HGB Conc 33.6 g/dL Normal 32.5-35.6 [facility] Comment on above: Performed By: #### B MP, HS TROP, CBC, PT, PTT, BNP #### [address] Monocytes (Bld) [#/Vol] 0.6 10*3/uL Normal 0.0-0.8 [facility] Comment on above: Performed By: #### B MP, HS TROP, CBC, PT, PTT, BNP #### [address] Monocytes/100 WBC (Bld) 7.4 % Normal . [facility] Comment on above: Performed By: #### B MP, HS TROP, CBC, PT, PTT, BNP #### [address] Neutrophils (Bld) [#/Vol] 6.7 10*3/uL Normal 1.8-7.7 [facility] Comment on above: Performed By: #### B MP, HS TROP, CBC, PT, PTT, BNP #### [address] Neutrophils/100 WBC (Bld) 78.6 % Normal . [facility] Comment on above: Performed By: #### B MP, HS TROP, CBC, PT, PTT, BNP #### [address] Nucleated RBC/100 WBC (Bld) [Ratio] 0.1 % Normal 0-0.5 [facility] Comment on above: Performed By: #### B MP, HS TROP, CBC, PT, PTT, BNP #### [address] Platelet mean volume (Bld) [Entitic vol] 8.2 fL Normal 6.6-10.1 [facility] Comment on above: Performed By: #### B MP, HS TROP, CBC, PT, PTT, BNP #### [place] [address] [place] Platelets (Bld) [#/Vol] 414 10*3/uL Normal 150-450 [facility] Comment on above: Performed By: #### B MP, HS TROP, CBC, PT, PTT, BNP #### [address] [place] [address] [place] RBC (Bld) [#/Vol] 4.44 10*6/uL Normal 3.90-5.60 [facility] Comment on above: Performed By: #### B MP, HS TROP, CBC, PT, PTT, BNP #### [facility] [address] WBC (Bld) [#/Vol] 8.5 10*3/uL Normal 4.5-11.0 [facility] Comment on above: Performed By: #### B MP, HS TROP, CBC, PT, PTT, BNP #### [address] Basophils (Bld) [#/Vol] 0.1 10*3/uL Normal 0.0-0.2 [facility] Comment on above: Result Comment: PERF ORMED BY: [place] [address] PATHOLOGIST WORM RAISER SHYANN OLIVIER M.D. Performed By: #### B MP, HS TROP, CBC, PT, PTT, BNP #### [address] Basophils/100 WBC (Bld) 0.7 % Normal . [facility] Comment on above: Performed By: #### B MP, HS TROP, CBC, PT, PTT, BNP #### [address] Eosinophils (Bld) [#/Vol] 0.2 10*3/uL Normal 0.0-0.45 [facility] Comment on above: Performed By: #### B MP, HS TROP, CBC, PT, PTT, BNP #### [address] Eosinophils/100 WBC (Bld) 1.8 % Normal . [facility] Comment on above: Performed By: #### B MP, HS TROP, CBC, PT, PTT, BNP #### [address] Erythrocyte distribution width (RBC) [Ratio] 15.5 % High 12.0-14.8 [facility] Comment on above: Performed By: #### B MP, HS TROP, CBC, PT, PTT, BNP #### [address] Hematocrit (Bld) [Volume fraction] 42.0 % Normal 38.8-50.0 [facility] Comment on above: Performed By: #### B MP, HS TROP, CBC, PT, PTT, BNP #### [address] Hemoglobin (Bld) [Mass/Vol] 14.2 g/dL Normal 13.0-17.0 [facility] Comment on above: Performed By: #### B MP, HS TROP, CBC, PT, PTT, BNP #### [address] Lymphocytes (Bld) [#/Vol] 0.8 10*3/uL Low 1.00-4.8 [facility] Comment on above: Performed By: #### B MP, HS TROP, CBC, PT, PTT, BNP #### [address] Lymphocytes/100 WBC (Bld) 7.7 % Normal . [facility] Comment on above: Performed By: #### B MP, HS TROP, CBC, PT, PTT, BNP #### [address] MCH (RBC) [Entitic mass] 31.3 pg Normal 27.5-35.2 [facility] Comment on above: Performed By: #### B MP, HS TROP, CBC, PT, PTT, BNP #### [address] MCV (RBC) [Entitic vol] 92.4 fL Normal 83.5-101 [facility] Comment on above: Performed By: #### B MP, HS TROP, CBC, PT, PTT, BNP #### [address] Mean Corpuscular HGB Conc 33.9 g/dL Normal 32.5-35.6 [facility] Comment on above: Performed By: #### B MP, HS TROP, CBC, PT, PTT, BNP #### [facility] [address] Monocytes (Bld) [#/Vol] 0.8 10*3/uL Normal 0.0-0.8 [facility] Comment on above: Performed By: #### B MP, HS TROP, CBC, PT, PTT, BNP #### [facility] [address] Monocytes/100 WBC (Bld) 7.5 % Normal . [facility] Comment on above: Performed By: #### B MP, HS TROP, CBC, PT, PTT, BNP #### [address] Neutrophils (Bld) [#/Vol] 9.0 10*3/uL High 1.8-7.7 [facility] Comment on above: Performed By: #### B MP, HS TROP, CBC, PT, PTT, BNP #### [address] Neutrophils/100 WBC (Bld) 82.3 % Normal . [facility] Comment on above: Performed By: #### B MP, HS TROP, CBC, PT, PTT, BNP #### [place] [address] [place] Nucleated RBC/100 WBC (Bld) [Ratio] 0.1 % Normal 0-0.5 [facility] Comment on above: Performed By: #### B MP, HS TROP, CBC, PT, PTT, BNP #### [facility] [address] [place] [address] [place] Platelet mean volume (Bld) [Entitic vol] 7.9 fL Normal 6.6-10.1 [facility] Comment on above: Performed By: #### B MP, HS TROP, CBC, PT, PTT, BNP #### [place] [address] [place] Platelets (Bld) [#/Vol] 463 10*3/uL High 150-450 [facility] Comment on above: Performed By: #### B MP, HS TROP, CBC, PT, PTT, BNP #### [address] RBC (Bld) [#/Vol] 4.54 10*6/uL Normal 3.90-5.60 [facility] Comment on above: Performed By: #### B MP, HS TROP, CBC, PT, PTT, BNP #### [address] WBC (Bld) [#/Vol] 11.0 10*3/uL Normal 4.5-11.0 [facility] Comment on above: Performed By: #### B MP, HS TROP, CBC, PT, PTT, BNP #### [address] Creatine Kinaseon 12-08-2020 CK [Catalytic activity/Vol] 78 U/L Normal 22-269 [facility] Comment on above: Performed By: #### B MP, HS TROP, CBC, PT, PTT, BNP #### [address] CK [Catalytic activity/Vol] 67 U/L Normal 22-269 [facility] Comment on above: Performed By: #### B MP, HS TROP, CBC, PT, PTT, BNP #### [address] CK [Catalytic activity/Vol] 58 U/L Normal 22-269 [facility] Comment on above: Performed By: #### B MP, HS TROP, CBC, PT, PTT, BNP #### [address] Creatinine Kinase MBon 12-08 CK.MB [Mass/Vol] 6.3 ng/mL Normal 0.6-6.3 [facility] Comment on above: Performed By: #### B MP, HS TROP, CBC, PT, PTT, BNP #### [address] CKMB Relative Index 8.0 % High 0.00-2.50 [facility] Comment on above: Performed By: #### B MP, HS TROP, CBC, PT, PTT, BNP #### [facility] [address] CK.MB [Mass/Vol] 4.2 ng/mL Normal 0.6-6.3 [facility] Comment on above: Performed By: #### B MP, HS TROP, CBC, PT, PTT, BNP #### [facility] [address] CKMB Relative Index 6.2 % High 0.00-2.50 [facility] Comment on above: Performed By: #### B MP, HS TROP, CBC, PT, PTT, BNP #### [facility] [address] CK.MB [Mass/Vol] 3.7 ng/mL Normal 0.6-6.3 [facility] Comment on above: Performed By: #### B MP, HS TROP, CBC, PT, PTT, BNP #### [facility] [address] CKMB Relative Index 6.3 % High 0.00-2.50 [facility] Comment on above: Performed By: #### B MP, HS TROP, CBC, PT, PTT, BNP #### [address] ECG 12 lead ECGon 12-08-2020 ECG 12 lead ECG [facility] [place] [address] Electrocardiograph Report Signed Patient: Vishal Duke MR#: [id number] : 1960 Acct:[id number] Age/Sex: 59 / M ADM Date: 12/08/20 Loc: Room: [address] [place] [address] Type: ADM INOo Attending Dr: Daniel Prabhakar [...] Lateral leads Confirmed by IRWIN LUTZ DO ([id number]) on 12/09/2020 6:02:40 AM Referred By: Electronically Signed By:IRWIN LUTZ DO Transcribed By: MUS Dictated By: Irwin Lutz DO 12/08/20 0950 Signed By: 12/09/20 0602 Normal [facility] Partial Thromboplastin Timeo n 12-08-2020 aPTT Coag (Bld) [Time] 131.9 s Off scale high 25.1-36.5 [facility] Comment on above: Result Comment: Resu lts called at 1947 on 12/08/20 PERFORMED BY: [place] [address] PATHOLOGIST WORM RAISER SHYANN OLIVIER M.D. Performed By: #### B MP, HS TROP, CBC, PT, PTT, BNP #### [facility] [address] [place] [address] aPTT Coag (Bld) [Time] 36.2 s Normal 25.1-36.5 [facility] Comment on above: Result Comment: PERF ORMED BY: [place] [address] PATHOLOGIST WORM RAISER SHYANN OLIVIER M.D. Performed By: #### B MP, HS TROP, CBC, PT, PTT, BNP #### [facility] [address] [place] [address] [place] Prothrombin Time INRon 12-08 INR Coag (PPP) [Relative time] 1.5 {INR} Normal [facility] Comment on above: Result Comment: INR Therapeutic [...] HS TROP, CBC, PT, PTT, BNP #### [facility] [address] PT Coag (PPP) [Time] 16.1 s High 9.0-12.9 [facility] Comment on above: Performed By: #### B MP, HS TROP, CBC, PT, PTT, BNP #### [address] INR Coag (PPP) [Relative time] 1.3 {INR} Normal [facility] Comment on above: Result Comment: INR Therapeutic [...] HS TROP, CBC, PT, PTT, BNP #### [address] PT Coag (PPP) [Time] 14.0 s High 9.0-12.9 [facility] Comment on above: Performed By: #### B MP, HS TROP, CBC, PT, PTT, BNP #### [address] Tessa Ag Negativeon 12-09-19 21 Tessa Ag Negative Negative Normal Negative [facility] Comment on above: Result Comment: This is a duplicate Tessa SARS Antigen (GISSEL) result to be used for statistical tracking purpose only. PERFORMED BY: [place] [address] PATHOLOGIST WORM RAISER JIANLAN SUN M.D. Performed By: #### S OFIANEG, COVID-19 TESSA, COVID 19 [facility] #### [facility] [address] [place] [address] [place] Troponin I High Sensitivityo n 12-08-2020 Troponin I High Sensitivity 474 pg/mL Off scale high 0-20 [facility] Comment on above: Result Comment: PERF ORMED BY: [place] [address] PATHOLOGIST WORM RAISER SHYANN OLIVIER M.D. Performed By: #### B MP, HS TROP, CBC, PT, PTT, BNP #### [place] [address] [place] Troponin I High Sensitivity 317 pg/mL Off scale high 0-20 [facility] Comment on above: Result Comment: PERF ORMED BY: [place] [address] PATHOLOGIST WORM RAISER SHYANN OLIVIER M.D. Performed By: #### B MP, HS TROP, CBC, PT, PTT, BNP #### [address] Troponin I High Sensitivity 183 pg/mL Off scale high 0-20 [facility] Comment on above: Result Comment: Crit ical value result called at 1719 on 12/08/20 PERFORMED BY: [place] [address] PATHOLOGIST WORM RAISER SHYANN OLIVIER M.D. Performed By: #### B MP, HS TROP, CBC, PT, PTT, BNP #### [address] Troponin I High Sensitivity 49 pg/mL High 0-20 [facility] Comment on above: Result Comment: PERF ORMED BY: [place] [address] PATHOLOGIST WORM RAISER SHYANN OILVIER M.D. Performed By: #### B MP, HS TROP, CBC, PT, PTT, BNP #### [facility] [address] [place] [address] [place] XR chest 1V portableon 12-08 XR chest 1V portable [facility] [place] [address] [place] [address] XRay Report Signed Patient: Vishal Duke MR#: [id number] : 1960 Acct:[id number] Age/Sex: 59 / M ADM Date: 12/08/20 Loc: ER Room: Type: [facility] ER Attending Dr: Ordering Provider: Irwin [...] Biju Ag M.D.12/08/2020 11:02 AM Dictation Location: [place] [address] Transcribed By: [facility] 12/08/20 1102 Dictated By: Biju Ag MD 12/08/20 1059 Signed By: 12/08/20 1102 [facility] TACROLIMUSon 12-04-2020 Tacrolimus (Bld) [Mass/Vol] 8.0 ng/mL Normal 5.0-20.0 [facility] Comment on above: Order Comment: Yes: Add to Previous draw if able Result Comment: The [employer] Tacrolimus assay is a delayed one-step immunoassay for the quantitative determination of tacrolimus in human whole blood using the chemiluminescent microparticle immunoassay (CMIA) technology with flexible assay protocols, referred to as Chemiflex. Performed By: #### 2 5508, 27631, 37337, 87014, 62118 #### [facility] [address] TROPONIN-Ion 12-04-2020 Troponin I.cardiac [Mass/Vol] 0.03 ng/mL Normal 0.00-0.04 [facility] Comment on above: Order Comment: No: D o not add to previous draw Pt in bath room askme to come back Result Comment: REFE RENCE RANGES: 0.00 - 0.04 ng/ml NORMAL 0.05 - 0.50 ng/ml INDETERMINATE > 0.50 ng/ml CONSISTENT WITH AN M.I. Performed By: #### 3 5200 #### [facility] [address] Order Comment: No: D o not add to previous draw Performed By: #### 2 5508, 00163, 96911, 92748, 76602 #### [facility] [address] Troponin I.cardiac [Mass/Vol] 0.03 ng/mL Normal 0.00-0.04 [facility] Comment on above: Result Comment: REFE RENCE RANGES: 0.00 - 0.04 ng/ml NORMAL 0.05 - 0.50 ng/ml INDETERMINATE > 0.50 ng/ml CONSISTENT WITH AN M.I. Performed By: #### 2 5508, 68891, 52498, 23224, 58766 #### [facility] [address] [place] [address], [facility] ktx basic metabolic panelon 12-04-2020 Calcium [Mass/Vol] 8.9 mg/dL Normal 8.6-10.3 [facility] Comment on above: Performed By: #### 2 5508, 56966, 91810, 54041, 34634 #### [facility] [address] [facility] [place] [address], [facility] Chloride [Moles/Vol] 106 mmol/L Normal 98-107 [facility] Comment on above: Performed By: #### 2 5508, 90724, 40527, 58392, 91952 #### [facility] [address] [place] [address], [place] CO2 [Moles/Vol] 19 mmol/L Low 21-31 [facility] Comment on above: Performed By: #### 2 5508, 00911, 80654, 64262, 29026 #### [facility] [address] [place] [address], [place] Creatinine [Mass/Vol] 0.82 mg/dL Normal 0.70-1.30 [facility] Comment on above: Performed By: #### 2 5508, 58463, 69044, 05377, 73838 #### [facility] [address] [place] [address], [place] GFR/1.73 sq M.predicted among blacks MDRD (S/P/Bld) [Vol rate/Area] mL/min/{1.73_m2} Normal >60 [facility] Comment on above: Performed By: #### 2 5508, 00038, 65742, 82748, 32727 #### [facility] [address] [place] [address], [place] GFR/1.73 sq M.predicted among non-blacks MDRD (S/P/Bld) [Vol rate/Area] mL/min/{1.73_m2} Normal >60 [facility] Comment on above: Performed By: #### 2 5508, 50732, 85015, 01706, 27108 #### [facility] [address] [place] [address], [place] Glucose [Mass/Vol] 127 mg/dL High 70-100 [facility] Comment on above: Performed By: #### 2 5508, 08064, 83306, 46708, 28459 #### [facility] [address] [place] [address], [facility] Potassium [Moles/Vol] 3.9 mmol/L Normal 3.5-5.1 [facility] Comment on above: Performed By: #### 2 5508, 07147, 60130, 28508, 70376 #### [facility] [address] [place] [address], [facility] Sodium [Moles/Vol] 136 mmol/L Normal 136-145 [facility] Comment on above: Performed By: #### 2 5508, 69366, 66376, 48156, 25850 #### [facility] [address] [place] [address], [facility] Urea nitrogen [Mass/Vol] 10 mg/dL Normal 7-25 [facility] Comment on above: Performed By: #### 2 5508, 92542, 48444, 75977, 17897 #### [facility] [address] [place] [address], [facility] ktx cbc complete blood count on 12-04-2020 Erythrocyte distribution width (RBC) [Ratio] 14.6 % Normal 11.5-15.0 [facility] Comment on above: Performed By: #### 6 1405 #### [facility] [address] [place] [address], [facility] Hematocrit (Bld) [Volume fraction] 38.7 % Low 39.0-50.0 [facility] Comment on above: Performed By: #### 6 1405 #### [facility] [address] [place] [address], [facility] Hemoglobin (Bld) [Mass/Vol] 12.8 g/dL Low 13.0-17.0 [facility] Comment on above: Performed By: #### 6 1405 #### [facility] [address] [place] [address], [facility] MCH (RBC) [Entitic mass] 31.3 pg Normal 27.0-33.0 [facility] Comment on above: Performed By: #### 6 1405 #### [facility] [address] MCHC (RBC) [Mass/Vol] 33.1 g/dL Normal 32.0-35.0 [facility] Comment on above: Performed By: #### 6 1405 #### [facility] [address] MCV (RBC) [Entitic vol] 94.6 fL Normal 82.0-98.0 [facility] Comment on above: Performed By: #### 6 1405 #### [facility] [address] Nucleated RBC/100 WBC (Bld) [Ratio] 0 % Normal 0-0 [facility] Comment on above: Performed By: #### 6 1405 #### [facility] [address] PLAT CNT 224 10*3/uL Normal 150-400 [facility] Comment on above: Performed By: #### 6 1405 #### [facility] [address] RBC (Bld) [#/Vol] 4.09 10*6/uL Low 4.20-5.70 [facility] Comment on above: Performed By: #### 6 1405 #### [facility] [address] WBC (Bld) [#/Vol] 12.30 10*3/uL High 4.00-10.60 [facility] Comment on above: Performed By: #### 6 1405 #### [facility] [address] ktx magnesium bloodon 2020 Magnesium [Mass/Vol] 1.6 mg/dL Low 1.9-2.7 [facility] Comment on above: Performed By: #### 2 5508, 46092, 96450, 64243, 87715 #### [facility] [address] [place] [address], [facility] ktx phosphoruson 12-04-2020 Phosphate [Mass/Vol] 2.4 mg/dL Low 2.5-5.0 [facility] Comment on above: Performed By: #### 2 5508, 78661, 51245, 34213, 60480 #### [facility] [address] [place] [address], [facility] TACROLIMUSon 12-03-2020 Tacrolimus (Bld) [Mass/Vol] 9.1 ng/mL Normal 5.0-20.0 [facility] Comment on above: Order Comment: Yes: Add to Previous draw if able Result Comment: The [employer] Tacrolimus assay is a delayed one-step immunoassay for the quantitative determination of tacrolimus in human whole blood using the chemiluminescent microparticle immunoassay (CMIA) technology with flexible assay protocols, referred to as Chemiflex. Performed By: #### 2 5508, 69608, 14095, 22423, 73117 #### [facility] [address] [place] [address], [facility] ktx basic metabolic panelon 12-03-2020 Calcium [Mass/Vol] 9.5 mg/dL Normal 8.6-10.3 [facility] Comment on above: Performed By: #### 2 5508, 61035, 04062, 04943, 15454 #### [facility] [address] [place] [address], [place] Chloride [Moles/Vol] 102 mmol/L Normal 98-107 [facility] Comment on above: Performed By: #### 2 5508, 98139, 32076, 09438, 64548 #### [facility] [address] [place] [address], [place] CO2 [Moles/Vol] 22 mmol/L Normal 21-31 [facility] Comment on above: Performed By: #### 2 5508, 28399, 79397, 48363, 76369 #### [facility] [address] [place] [address], [place] Creatinine [Mass/Vol] 0.88 mg/dL Normal 0.70-1.30 [facility] Comment on above: Performed By: #### 2 5508, 51540, 95231, 76446, 55959 #### [facility] [address] [place] [address], [place] GFR/1.73 sq M.predicted among blacks MDRD (S/P/Bld) [Vol rate/Area] mL/min/{1.73_m2} Normal >60 [facility] Comment on above: Performed By: #### 2 5508, 30783, 67653, 67677, 40177 #### [facility] [address] [place] [address], [place] GFR/1.73 sq M.predicted among non-blacks MDRD (S/P/Bld) [Vol rate/Area] mL/min/{1.73_m2} Normal >60 [facility] Comment on above: Performed By: #### 2 5508, 20016, 85760, 07081, 86242 #### [facility] [address] [place] [address], [place] Glucose [Mass/Vol] 120 mg/dL High 70-100 [facility] Comment on above: Performed By: #### 2 5508, 31826, 73382, 49182, 26180 #### [facility] [address] [place] [address], [place] Potassium [Moles/Vol] 3.8 mmol/L Normal 3.5-5.1 [facility] Comment on above: Performed By: #### 2 5508, 13751, 86878, 14833, 36029 #### [facility] [address] [place] [address], [place] Sodium [Moles/Vol] 134 mmol/L Low 136-145 [facility] Comment on above: Performed By: #### 2 5508, 61264, 38040, 31881, 38019 #### [facility] [address] [place] [address], [facility] Urea nitrogen [Mass/Vol] 9 mg/dL Normal 7-25 [facility] Comment on above: Performed By: #### 2 5508, 96600, 20833, 30950, 19999 #### [facility] [address] [place] [address], [facility] ktx cbc complete blood count on 12-03-2020 Erythrocyte distribution width (RBC) [Ratio] 14.6 % Normal 11.5-15.0 [facility] Comment on above: Performed By: #### 6 1405 #### [facility] [address] [place] [address], [facility] Hematocrit (Bld) [Volume fraction] 40.4 % Normal 39.0-50.0 [facility] Comment on above: Performed By: #### 6 1405 #### [facility] [address] [place] [address], [facility] Hemoglobin (Bld) [Mass/Vol] 13.6 g/dL Normal 13.0-17.0 [facility] Comment on above: Performed By: #### 6 1405 #### [facility] [address] [place] [address], [facility] MCH (RBC) [Entitic mass] 31.1 pg Normal 27.0-33.0 [facility] Comment on above: Performed By: #### 6 1405 #### [facility] [address] [place] [address], [facility] MCHC (RBC) [Mass/Vol] 33.7 g/dL Normal 32.0-35.0 [facility] Comment on above: Performed By: #### 6 1405 #### [facility] [address] [place] [address], [facility] MCV (RBC) [Entitic vol] 92.4 fL Normal 82.0-98.0 [facility] Comment on above: Performed By: #### 6 1405 #### [facility] [address] [place] [address], [facility] Nucleated RBC/100 WBC (Bld) [Ratio] 0 % Normal 0-0 [facility] Comment on above: Performed By: #### 6 1405 #### [facility] [address] [place] [address], [facility] PLAT CNT 240 10*3/uL Normal 150-400 [facility] Comment on above: Performed By: #### 6 1405 #### [facility] [address] [place] [address], [facility] RBC (Bld) [#/Vol] 4.37 10*6/uL Normal 4.20-5.70 [facility] Comment on above: Performed By: #### 6 1405 #### [facility] [address] [place] [address], [facility] WBC (Bld) [#/Vol] 12.42 10*3/uL High 4.00-10.60 [facility] Comment on above: Performed By: #### 6 1405 #### [facility] [address] [place] [address], [facility] ktx magnesium bloodon 2020 Magnesium [Mass/Vol] 2.1 mg/dL Normal 1.9-2.7 [facility] Comment on above: Performed By: #### 2 5508, 50719, 44586, 65377, 67806 #### [facility] [address] [place] [address], [facility] ktx phosphoruson 12-03-2020 Phosphate [Mass/Vol] 3.3 mg/dL Normal 2.5-5.0 [facility] Comment on above: Performed By: #### 2 5508, 77228, 97370, 68305, 81245 #### [facility] [address] [place] [address], [facility] BASIC METABOLIC PANELon 08- Calcium [Mass/Vol] 10.1 mg/dL Normal 8.6-10.3 [facility] Comment on above: Order Comment: No: D o not add to previous draw Performed By: #### 2 5508, 33598, 77216, 54649, 81722 #### [facility] [address] [place] [address], [place] Chloride [Moles/Vol] 97 mmol/L Low 98-107 [facility] Comment on above: Order Comment: No: D o not add to previous draw Performed By: #### 2 5508, 83185, 19088, 94224, 12169 #### [facility] [address] [place] [address], [place] CO2 [Moles/Vol] 27 mmol/L Normal 21-31 [facility] Comment on above: Order Comment: No: D o not add to previous draw Performed By: #### 2 5508, 34702, 04122, 01339, 75083 #### [facility] [address] [place] [address], [place] Creatinine [Mass/Vol] 1.12 mg/dL Normal 0.70-1.30 [facility] Comment on above: Order Comment: No: D o not add to previous draw Performed By: #### 2 5508, 11387, 51338, 05957, 24654 #### [facility] [address] [place] [address], [place] GFR/1.73 sq M.predicted among blacks MDRD (S/P/Bld) [Vol rate/Area] mL/min/{1.73_m2} Normal >60 [facility] Comment on above: Order Comment: No: D o not add to previous draw Performed By: #### 2 5508, 32364, 06288, 31505, 67933 #### [facility] [address] [place] [address], [place] GFR/1.73 sq M.predicted among non-blacks MDRD (S/P/Bld) [Vol rate/Area] mL/min/{1.73_m2} Normal >60 [facility] Comment on above: Order Comment: No: D o not add to previous draw Performed By: #### 2 5508, 66963, 76490, 44367, 12591 #### [facility] [address] [place] [address], [place] Glucose [Mass/Vol] 124 mg/dL High 70-100 [facility] Comment on above: Order Comment: No: D o not add to previous draw Performed By: #### 2 5508, 62868, 56224, 53389, 36114 #### [facility] [address] [place] [address], [place] Potassium [Moles/Vol] 4.4 mmol/L Normal 3.5-5.1 [facility] Comment on above: Order Comment: No: D o not add to previous draw Performed By: #### 2 5508, 50519, 71214, 75442, 93170 #### [facility] [address] [place] [address], [place] Sodium [Moles/Vol] 133 mmol/L Low 136-145 [facility] Comment on above: Order Comment: No: D o not add to previous draw Performed By: #### 2 5508, 88318, 75329, 55417, 50639 #### [facility] [address] [place] [address], [place] Urea nitrogen [Mass/Vol] 17 mg/dL Normal 7-25 [facility] Comment on above: Order Comment: No: D o not add to previous draw Performed By: #### 2 5508, 56135, 11117, 01789, 70480 #### [facility] [address] CBC COMPLETE BLOOD COUNTon 0 - Erythrocyte distribution width (RBC) [Ratio] 14.7 % Normal 11.5-15.0 [facility] Comment on above: Order Comment: No: D o not add to previous draw Performed By: #### 6 1405 #### [facility] [address] [place] [address], [facility] Hematocrit (Bld) [Volume fraction] 43.7 % Normal 39.0-50.0 [facility] Comment on above: Order Comment: No: D o not add to previous draw Performed By: #### 6 1405 #### [facility] [address] [place] [address], [facility] Hemoglobin (Bld) [Mass/Vol] 14.1 g/dL Normal 13.0-17.0 [facility] Comment on above: Order Comment: No: D o not add to previous draw Performed By: #### 6 1405 #### [facility] [address] [place] [address], [facility] MCH (RBC) [Entitic mass] 30.8 pg Normal 27.0-33.0 [facility] Comment on above: Order Comment: No: D o not add to previous draw Performed By: #### 6 1405 #### [facility] [address] [place] [address], [facility] MCHC (RBC) [Mass/Vol] 32.3 g/dL Normal 32.0-35.0 [facility] Comment on above: Order Comment: No: D o not add to previous draw Performed By: #### 6 1405 #### [facility] [address] [place] [id number], [facility] MCV (RBC) [Entitic vol] 95.4 fL Normal 82.0-98.0 [facility] Comment on above: Order Comment: No: D o not add to previous draw Performed By: #### 6 1405 #### [facility] [address] [facility] [place] [address], [facility] Nucleated RBC/100 WBC (Bld) [Ratio] 0 % Normal 0-0 [facility] Comment on above: Order Comment: No: D o not add to previous draw Performed By: #### 6 1405 #### [facility] [address] [place] [id number], [facility] PLAT CNT 257 10*3/uL Normal 150-400 [facility] Comment on above: Order Comment: No: D o not add to previous draw Performed By: #### 6 1405 #### [facility] [address] [facility] [place] [address], [facility] RBC (Bld) [#/Vol] 4.58 10*6/uL Normal 4.20-5.70 [facility] Comment on above: Order Comment: No: D o not add to previous draw Performed By: #### 6 1405 #### [facility] [address] [facility] [place] [address], [facility] WBC (Bld) [#/Vol] 13.96 10*3/uL High 4.00-10.60 [facility] Comment on above: Order Comment: No: D o not add to previous draw Performed By: #### 6 1405 #### [facility] [address] [facility] [place] [address], [facility] MAGNESIUM BLOODon 12-02-2020 Magnesium [Mass/Vol] 1.5 mg/dL Low 1.9-2.7 [facility] Comment on above: Order Comment: No: D o not add to previous draw Performed By: #### 2 5508, 84759, 09984, 36072, 21867 #### [facility] [address] [facility] [place] [address], [facility] PHOSPHORUS BLOODon Phosphate [Mass/Vol] 3.8 mg/dL Normal 2.5-5.0 [facility] Comment on above: Order Comment: No: D o not add to previous draw Performed By: #### 2 5508, 75993, 36052, 35399, 16122 #### [facility] [address] PROTHROMBIN TIMEon INR Coag (PPP) [Relative time] 1.12 {INR} Normal 0.91-1.16 [facility] Comment on above: Order Comment: No: [...] CHEST 1995;[id number]. Performed By: #### 5 6101 ####[facility] [address] PT Coag (PPP) [Time] 14.4 s Normal 12.3-14.8 [facility] Comment on above: Order Comment: No: D o not add to previous draw Result Comment: ALL RESULTS MUST BE INTERPRETED WITH RESPECT TO BLOOD DRAWING ARTIFACT OR DILUTION ERROR OF ANTICOAGULANT AT THE TIME OF SAMPLING. Performed By: #### 5 6101 ####[facility] [place] [address], [facility] CBC W/DIFFon 12-01-2020 ABS IMM GRANS 0.1 10*3/uL Normal 0.0-0.2 [facility] Comment on above: Performed By: #### 6 1405 #### [facility] [address] [place] [address], [facility] ABS NEUTROPHILS 12.0 10*3/uL High 1.6-7.6 [facility] Comment on above: Performed By: #### 6 1405 #### [facility] [address] [place] [address], [facility] Basophils (Bld) [#/Vol] 0.1 10*3/uL Normal 0.0-0.2 [facility] Comment on above: Performed By: #### 6 1405 #### [facility] [address] [place] [address], [facility] Basophils/100 WBC (Bld) 0.6 % Normal 0.0-1.0 [facility] Comment on above: Performed By: #### 6 1405 #### [facility] [address] [place] [address], [facility] Eosinophils (Bld) [#/Vol] 0.1 10*3/uL Normal 0.0-0.5 [facility] Comment on above: Performed By: #### 6 1405 #### [facility] [address] [place] [place] [address], [facility] Eosinophils/100 WBC (Bld) 0.7 % Normal 0.0-6.0 [facility] Comment on above: Performed By: #### 6 1405 #### [facility] [address] [place] [place] [address], [facility] Erythrocyte distribution width (RBC) [Ratio] 14.7 % Normal 11.5-15.0 [facility] Comment on above: Performed By: #### 6 1405 #### [facility] [address] [place] [address], [facility] Hematocrit (Bld) [Volume fraction] 47.3 % Normal 39.0-50.0 [facility] Comment on above: Performed By: #### 6 1405 #### [facility] [address] [place] [address], [facility] Hemoglobin (Bld) [Mass/Vol] 15.5 g/dL Normal 13.0-17.0 [facility] Comment on above: Performed By: #### 6 1405 #### [facility] [address] [place] [address], [facility] IMMATURE GRANS 0.7 % Normal 0.0-1.0 [facility] Comment on above: Performed By: #### 6 1405 #### [facility] [address] Lymphocytes (Bld) [#/Vol] 0.6 10*3/uL Low 1.2-4.0 [facility] Comment on above: Performed By: #### 6 1405 #### [facility] [address] Lymphocytes/100 WBC (Bld) 4.3 % Low 20.0-45.0 [facility] Comment on above: Performed By: #### 6 1405 #### [facility] [address] MCH (RBC) [Entitic mass] 31.0 pg Normal 27.0-33.0 [facility] Comment on above: Performed By: #### 6 1405 #### [facility] [address] [place] [address], [facility] MCHC (RBC) [Mass/Vol] 32.8 g/dL Normal 32.0-35.0 [facility] Comment on above: Performed By: #### 6 1405 #### [facility] [address] [place] [address], [facility] MCV (RBC) [Entitic vol] 94.6 fL Normal 82.0-98.0 [facility] Comment on above: Performed By: #### 6 1405 #### [facility] [address] [place] [address], [facility] Monocytes (Bld) [#/Vol] 1.0 10*3/uL Normal 0.1-1.0 [facility] Comment on above: Performed By: #### 6 1405 #### [facility] [address] [place] [address], [facility] MONOS 7.3 % Normal 5.0-12.0 [facility] Comment on above: Performed By: #### 6 1405 #### [facility] [address] Neutrophils/100 WBC (Bld) 86.4 % High 40.0-72.0 [facility] Comment on above: Performed By: #### 6 1405 #### [facility] [address] Nucleated RBC/100 WBC (Bld) [Ratio] 0 % Normal 0-0 [facility] Comment on above: Performed By: #### 6 1405 #### [facility] [address] [place] [address], [facility] PLAT CNT 289 10*3/uL Normal 150-400 [facility] Comment on above: Performed By: #### 6 1405 #### [facility] [address] [place] [address], [facility] RBC (Bld) [#/Vol] 5.00 10*6/uL Normal 4.20-5.70 [facility] Comment on above: Performed By: #### 6 1405 #### [facility] [address] [place] [address], [facility] WBC (Bld) [#/Vol] 13.82 10*3/uL High 4.00-10.60 [facility] Comment on above: Performed By: #### 6 1405 #### [facility] [address] [place] [address], [place] COMP METABOLIC PANELon 12-01 Albumin [Mass/Vol] 4.7 g/dL Normal 3.5-5.7 [facility] Comment on above: Performed By: #### 2 5508, 67803, 25986, 54698, 86208 #### [facility] [address] [place] [address], [place] ALKALINE PHOSPH 73 IU/L Normal 34-104 [facility] Comment on above: Performed By: #### 2 5508, 46942, 38961, 63751, 60194 #### [facility] [address] [place] [address], [place] ALT [Catalytic activity/Vol] 27 U/L Normal 7-52 [facility] Comment on above: Performed By: #### 2 5508, 24641, 75042, 28642, 46545 #### [facility] [address] [place] [address], [place] AST [Catalytic activity/Vol] 21 U/L Normal 13-39 [facility] Comment on above: Performed By: #### 2 5508, 04062, 23179, 28643, 13869 #### [facility] [address] [place] [address], [place] Bilirubin [Mass/Vol] 0.6 mg/dL Normal 0.3-1.0 [facility] Comment on above: Performed By: #### 2 5508, 34779, 78074, 50638, 01556 #### [facility] [address] [place] [address], [place] Calcium [Mass/Vol] 9.9 mg/dL Normal 8.6-10.3 [facility] Comment on above: Performed By: #### 2 5508, 77381, 85390, 80311, 50316 #### [facility] [address] [place] [address], [facility] Chloride [Moles/Vol] 104 mmol/L Normal 98-107 [facility] Comment on above: Performed By: #### 2 5508, 14042, 00878, 60029, 46643 #### [facility] [address] [place] [address], [place] CO2 [Moles/Vol] 25 mmol/L Normal 21-31 [facility] Comment on above: Performed By: #### 2 5508, 22190, 56983, 23580, 18507 #### [facility] [address] [place] [address], [place] Creatinine [Mass/Vol] 1.40 mg/dL High 0.70-1.30 [facility] Comment on above: Performed By: #### 2 5508, 41198, 18085, 96649, 70811 #### [facility] [address] [place] [address], [place] eGFR- non- 52 ml/min/1.73sq m Abnormal >60 [facility] Comment on above: Performed By: #### 2 5508, 33226, 45037, 32548, 90489 #### [facility] [address] [place] [address], [place] GFR/1.73 sq M.predicted among blacks MDRD (S/P/Bld) [Vol rate/Area] mL/min/{1.73_m2} Normal >60 [facility] Comment on above: Performed By: #### 2 5508, 81953, 44876, 12178, 68304 #### [facility] [address] [place] [address], [place] Glucose [Mass/Vol] 133 mg/dL High 70-100 [facility] Comment on above: Performed By: #### 2 5508, 57805, 71306, 82241, 61957 #### [facility] [address] [place] [address], [place] Potassium [Moles/Vol] 4.8 mmol/L Normal 3.5-5.1 [facility] Comment on above: Performed By: #### 2 5508, 85627, 04334, 37306, 53843 #### [facility] [address] [place] [address], [facility] Protein [Mass/Vol] 7.1 g/dL Normal 6.0-8.3 [facility] Comment on above: Performed By: #### 2 5508, 61116, 02822, 44154, 11803 #### [facility] [address] [place] [address], [facility] Sodium [Moles/Vol] 137 mmol/L Normal 136-145 [facility] Comment on above: Performed By: #### 2 5508, 11915, 57212, 35894, 32345 #### [facility] [address] [facility] [place] [address], [facility] Urea nitrogen [Mass/Vol] 19 mg/dL Normal 7-25 [facility] Comment on above: Performed By: #### 2 5508, 50870, 02291, 90496, 44230 #### [facility] [address] [facility]. [address] ABDOMEN AND PELVIS WO CON TRASTon 12-01-2020 CT ABDOMEN AND PELVIS WO CONTRAST [facility] Department of Radiology [address] [place] [id number] == Patient Name: VISHAL DUKE : 1960 Sex: M Age: Race: White Pt. Location: [facility] Patient Status: E Ordered Date: [...] Otherwise no change in appearance of the [place] kidneys. No evidence of cyst rupture. Right [...] achievable. Electronically signed: José Herman. Transcribed by: [email or web address], User Resident: Electronically Signed by: JOSÉ HERMAN @ 12/01/2020 11:45 AM Normal [facility] Comment on above: Order Comment: No: D o not add to previous draw CV'D BY IMM LAB AT 1240 LIPASE BLOODon 12-01-2020 LIPASE 40 Units/L Normal [facility] Comment on above: Performed By: #### 2 5508, 75087, 59684, 58775, 88812 #### [facility] [address] [place] [address], [facility] URINALYSIS REFLEXon 12-02-19 21 Appearance (U) SL CLOUDY Abnormal CLEAR [facility] Comment on above: Order Comment: Yes: Add to Previous draw if able Performed By: #### 2 5508, 11318, 85424, 01105, 14854 #### [facility] [address] [place] [address], [place] Bilirubin Ql (U) Negative Normal NEGATIVE [facility] Comment on above: Order Comment: Yes: Add to Previous draw if able Performed By: #### 2 5508, 54969, 52878, 97575, 38279 #### [facility] [address] [place] [address], [place] Color (U) TINO Abnormal YELLOW [facility] Comment on above: Order Comment: Yes: Add to Previous draw if able Performed By: #### 2 5508, 99692, 72218, 91286, 53074 #### [facility] [address] [place] [address], [facility] EPIS NONE SEEN Normal FEW,OCC,NONE SEEN [facility] Comment on above: Order Comment: Yes: Add to Previous draw if able Performed By: #### 2 5508, 98758, 01295, 35620, 16253 #### [facility] [address] [place] [address], [facility] Glucose Ql (U) Negative Normal NEGATIVE [facility] Comment on above: Order Comment: Yes: Add to Previous draw if able Performed By: #### 2 5508, 43297, 86099, 90495, 10101 #### [facility] [address] [place] [address], [facility] Hemoglobin Ql (U) Negative Normal NEGATIVE [facility] Comment on above: Order Comment: Yes: Add to Previous draw if able Performed By: #### 2 5508, 99310, 01016, 21773, 81695 #### [facility] [address] [place] [address], [facility] KETONE Negative Normal NEGATIVE [facility] Comment on above: Order Comment: Yes: Add to Previous draw if able Performed By: #### 2 5508, 61882, 72272, 04005, 47040 #### [facility] [address] [place] [address], [facility] LEUK MARIA A Negative Normal NEGATIVE [facility] Comment on above: Order Comment: Yes: Add to Previous draw if able Performed By: #### 2 5508, 46700, 86421, 08825, 79734 #### [facility] [address] [place] [id number], [facility] MUCUS THREADS MOD Abnormal NONE SEEN [facility] Comment on above: Order Comment: Yes: Add to Previous draw if able Performed By: #### 2 5508, 02892, 18689, 07175, 00364 #### [facility] [address] [place] [address], [facility] Nitrite Ql (U) Negative Normal NEGATIVE [facility] Comment on above: Order Comment: Yes: Add to Previous draw if able Performed By: #### 2 5508, 73812, 17098, 58246, 44577 #### [facility] [address] [place] [address], [facility] pH (U) 5.0 [pH] Normal 5.0-8.0 [facility] Comment on above: Order Comment: Yes: Add to Previous draw if able Performed By: #### 2 5508, 47376, 52092, 81136, 83012 #### [facility] [address] [place] [address], [facility] Protein Ql (U) 30 mg/dL Abnormal NEGATIVE [facility] Comment on above: Order Comment: Yes: Add to Previous draw if able Performed By: #### 2 5508, 27383, 72693, 80011, 77803 #### [facility] [address] [facility] [address] RBC 0-2 Abnormal NONE SEEN [facility] Comment on above: Order Comment: Yes: Add to Previous draw if able Performed By: #### 2 5508, 06155, 89524, 13216, 67519 #### [facility] [address] [facility] [place] [address], [facility] SPEC GRAV 1.026 High 1.015-1.020 [facility] Comment on above: Order Comment: Yes: Add to Previous draw if able Performed By: #### 2 5508, 77424, 18612, 96616, 25059 #### [facility] [address] [place] [address], [facility] WBC UA 0-2 Abnormal NONE SEEN [facility] Comment on above: Order Comment: Yes: Add to Previous draw if able Performed By: #### 2 5508, 01348, 07882, 21073, 51409 #### [facility] [address] [place] [address], [place] Pulmonary Functionon 11-29-2 021 Pulmonary Function MR #: [id number] [facility] PT. Name: Vishal Duke Date: 11/27/2020 [...] Syed MD Date Trans: 11/29/2020 01:09 P/ ROSARIO_JN:[id number] cc: Rosa M Gonzales M.D. [address] [place] [id number] [facility] ARTERIAL BLOOD GAS W/COOXon 11-27-2020 BASE EXCESS 3 mmol/L Normal -2-3 [facility] Comment on above: Performed By: #### 2 5508, 39118, 40187, 13166, 20666 #### [facility] [address] [place] [address], [facility] COHB 1.5 % Normal 0.0-1.5 [facility] Comment on above: Performed By: #### 2 5508, 61558, 74388, 76430, 88872 #### [facility] [address] [place] [address], [facility] DELIVERY SYSTEMS ROOM AIR Normal [facility] Comment on above: Performed By: #### 2 5508, 02429, 73328, 64051, 87389 #### [facility] [address] [place] [address], [facility] FIO2 0 % Normal [facility] Comment on above: Performed By: #### 2 5508, 66383, 01301, 50411, 72422 #### [facility] [address] [place] [address], [facility] HCO3 (Bld) [Moles/Vol] 26 mmol/L Normal 21-28 [facility] Comment on above: Performed By: #### 2 5508, 34164, 16142, 01599, 80967 #### [facility] [address] [place] [address], [facility] METHB 1.2 % Normal 0.0-1.5 [facility] Comment on above: Performed By: #### 2 5508, 19233, 90906, 06661, 28458 #### [facility] [address] [place] [address], [facility] Oxygen (Bld) [Partial pressure] 93 mm[Hg] Normal 83-108 [facility] Comment on above: Performed By: #### 2 5508, 26160, 09572, 52886, 14117 #### [facility] [address] [place] [address], [facility] Oxygen saturation in Blood 95.6 % Normal 94.0-97.0 [facility] Comment on above: Performed By: #### 2 5508, 87450, 57642, 55625, 64562 #### [facility] [address] [place] [address], [facility] PCO2 35 mmHg Normal 35-45 [facility] Comment on above: Performed By: #### 2 5508, 74346, 59364, 10845, 41508 #### [facility] [address] [place] [address], [facility] pH (Bld) 7.48 [pH] High 7.35-7.45 [facility] Comment on above: Performed By: #### 2 5508, 82160, 27000, 19020, 24444 #### [facility] [address] [place] [address], [facility] THB 15.4 g/dL Normal 12.0-16.3 [facility] Comment on above: Performed By: #### 2 5508, 83251, 72682, 50200, 71838 #### [facility] [address] [place] [address], [facility] CREATININE BLOODon 1 Creatinine [Mass/Vol] 1.10 mg/dL Normal 0.70-1.30 [facility] Comment on above: Order Comment: No: D o not add to previous draw Performed By: #### 2 5508, 76547, 88887, 11153, 78718 #### [facility] [address] [place] [address], [facility] GFR/1.73 sq M.predicted among blacks MDRD (S/P/Bld) [Vol rate/Area] mL/min/{1.73_m2} Normal >60 [facility] Comment on above: Order Comment: No: D o not add to previous draw Performed By: #### 2 5508, 21036, 89174, 91694, 22702 #### [facility] [address] [facility] [place] [address], [facility] GFR/1.73 sq M.predicted among non-blacks MDRD (S/P/Bld) [Vol rate/Area] mL/min/{1.73_m2} Normal >60 [facility] Comment on above: Order Comment: No: D o not add to previous draw Performed By: #### 2 5508, 26796, 98824, 57661, 00199 #### [facility] [address] [place], [place] [address] [place] [address] Cardiovascular Lab Reporton 10-29-2020 Cardiovascular Lab Report [facility] Patient Name: [facility] Vishal Medeiros MR #: [id number] Department of Physician: Domo Mejia M.D. Division of Service Date: 10/29/2020 Cardiology Birthdate: 1960 Adult Cardiovascular Room #: 3AB [id number] [facility] [address] [place] [address] Cardiovascular Laboratory Report FINAL IMPRESSIONS: 1. Severe [...] daily for minimum of 6 months preferably long-term. 6. Will consider elective revascularization of the right coronary artery should the patient continue to experience significant exertional angina; this will be a high risk procedure given tortuosity, calcification and ectasia. 7. Follow up with Dr. Chester in the [place] office in the next 1 to 2 months. 8. Follow up with. Dr. oGnzales, his family physician as scheduled. PROCEDURES: Limited [...] artery, failed attempt at deployment of a 6-Israeli MynxGrip closure device. METHODS: After risks, benefits, and alternatives were explained, written informed consent was obtained. The patient was prepped and draped in usual sterile fashion over both groins. Using 1% lidocaine solution, local infiltration anesthesia was achieved. Using a micropuncture kit access to the right common femoral artery was obtained. A 6-Israeli x 11 cm sheath was inserted without difficulty. Baseline femoral angiography was performed. Bilateral selective coronary angiography was performed using JL4 and JR4 catheters. Angiography of internal mammary artery graft was performed using a 6-Israeli IM catheter. Limited angiography of the left subclavian was performed after retracting the catheter into the artery. After reviewing the images, it was elected to proceed with an interventional procedure. A 6-Israeli XB3.5 guide catheter was advanced over J-wire [...] pressure to achieve optimal hemostasis once a 6-Israeli MynxGrip closure device failed to deploy. Overall, [...] mammar (more content not included)... Normal [facility] BASIC METABOLIC PANELon 05-0 5-2020 Calcium [Mass/Vol] 8.1 mg/dL Low 8.6-10.3 [facility] Comment on above: Order Comment: Yes: Add to Previous draw if able Performed By: #### 2 5508, 07381, 20589, 67339, 09911 #### [facility] [address] [place] [address], [facility] Chloride [Moles/Vol] 103 mmol/L Normal 98-107 [facility] Comment on above: Order Comment: Yes: Add to Previous draw if able Performed By: #### 2 5508, 63948, 87088, 95172, 66782 #### [facility] [address] [place] [address], [place] CO2 [Moles/Vol] 25 mmol/L Normal 21-31 [facility] Comment on above: Order Comment: Yes: Add to Previous draw if able Performed By: #### 2 5508, 21194, 65944, 85907, 98628 #### [facility] [address] [place] [address], [place] Creatinine [Mass/Vol] 0.88 mg/dL Normal 0.70-1.30 [facility] Comment on above: Order Comment: Yes: Add to Previous draw if able Performed By: #### 2 5508, 50165, 19786, 08622, 32304 #### [facility] [address] [place] [address], [place] GFR/1.73 sq M.predicted among blacks MDRD (S/P/Bld) [Vol rate/Area] mL/min/{1.73_m2} Normal >60 [facility] Comment on above: Order Comment: Yes: Add to Previous draw if able Performed By: #### 2 5508, 10345, 24353, 03631, 05953 #### [facility] [address] [place] [address], [place] GFR/1.73 sq M.predicted among non-blacks MDRD (S/P/Bld) [Vol rate/Area] mL/min/{1.73_m2} Normal >60 [facility] Comment on above: Order Comment: Yes: Add to Previous draw if able Performed By: #### 2 5508, 38389, 49244, 17053, 04605 #### [facility] [address] [place] [address], [place] Glucose [Mass/Vol] 119 mg/dL High 70-100 [facility] Comment on above: Order Comment: Yes: Add to Previous draw if able Performed By: #### 2 5508, 02730, 98424, 89223, 56724 #### [facility] [address] [place] [address], [place] Potassium [Moles/Vol] 3.6 mmol/L Normal 3.5-5.1 [facility] Comment on above: Order Comment: Yes: Add to Previous draw if able Performed By: #### 2 5508, 40465, 78553, 29387, 54232 #### [facility] [address] [place] [address], [place] Sodium [Moles/Vol] 133 mmol/L Low 136-145 [facility] Comment on above: Order Comment: Yes: Add to Previous draw if able Performed By: #### 2 5508, 99412, 56273, 99098, 25285 #### [facility] [address] [place] [address], [facility] Urea nitrogen [Mass/Vol] 17 mg/dL Normal 7-25 [facility] Comment on above: Order Comment: Yes: Add to Previous draw if able Performed By: #### 2 5508, 23863, 62900, 55527, 58796 #### [facility] [address] [place] [address], [facility] CBC COMPLETE BLOOD COUNTon - Erythrocyte distribution width (RBC) [Ratio] 13.3 % Normal 11.5-15.0 [facility] Comment on above: Order Comment: No: D o not add to previous draw Performed By: #### 6 1405 #### [facility] [address] [place] [address], [facility] Hematocrit (Bld) [Volume fraction] 47.6 % Normal 39.0-50.0 [facility] Comment on above: Order Comment: No: D o not add to previous draw Performed By: #### 6 1405 #### [facility] [address] [place] [address], [place] Hemoglobin (Bld) [Mass/Vol] 15.9 g/dL Normal 13.0-17.0 [facility] Comment on above: Order Comment: No: D o not add to previous draw Performed By: #### 6 1405 #### [facility] [address] [place] [address], [place] MCH (RBC) [Entitic mass] 29.1 pg Normal 27.0-33.0 [facility] Comment on above: Order Comment: No: D o not add to previous draw Performed By: #### 6 1405 #### [facility] [address] [place] [address], [place] MCHC (RBC) [Mass/Vol] 33.4 g/dL Normal 32.0-35.0 [facility] Comment on above: Order Comment: No: D o not add to previous draw Performed By: #### 6 1405 #### [facility] [address] [place] [address], [facility] MCV (RBC) [Entitic vol] 87.2 fL Normal 82.0-98.0 [facility] Comment on above: Order Comment: No: D o not add to previous draw Performed By: #### 6 1405 #### [facility] [address] [place] [address], [facility] Nucleated RBC/100 WBC (Bld) [Ratio] 0 % Normal 0-0 [facility] Comment on above: Order Comment: No: D o not add to previous draw Performed By: #### 6 1405 #### [facility] [address] [facility] [place] [address], [facility] PLAT CNT 306 10*3/uL Normal 150-400 [facility] Comment on above: Order Comment: No: D o not add to previous draw Performed By: #### 6 1405 #### [facility] [address] [facility] [place] [address], [facility] RBC (Bld) [#/Vol] 5.46 10*6/uL Normal 4.20-5.70 [facility] Comment on above: Order Comment: No: D o not add to previous draw Performed By: #### 6 1405 #### [facility] [address] [facility] [address], [facility] WBC (Bld) [#/Vol] 10.07 10*3/uL Normal 4.00-10.60 [facility] Comment on above: Order Comment: No: D o not add to previous draw Performed By: #### 6 1405 #### [facility] [address] [place] [address], [facility] PORTABLE CHEST 1 VIEWon 05-0 PORTABLE CHEST 1 VIEW [facility] Department of Radiology [address] [place] [id number] == Patient Name: VISHAL DUKE : 1960 Sex: M Age: Race: White Pt. Location: [id number] Patient Status: I Ordered Date: 08/19/2020 6:00:00 [...] right. Electronically signed: Dariela Vincent. Transcribed by: [email or web address], User Resident: Electronically Signed by: DARIELA VINCENT @ 08/19/2020 10:20 AM Normal [facility] Comment on above: Order Comment: No: D o not add to previous draw CV'D BY I[facility] AT 1240 TACROLIMUSon 08-19-2020 Tacrolimus (Bld) [Mass/Vol] 8.5 ng/mL Normal 5.0-20.0 [facility] Comment on above: Order Comment: No: D o not add to previous draw Result Comment: The [employer] Tacrolimus assay is a delayed one-step immunoassay for the quantitative determination of tacrolimus in human whole blood using the chemiluminescent microparticle immunoassay (CMIA) technology with flexible assay protocols, referred to as Chemiflex. Performed By: #### 2 5508, 43988, 57255, 07909, 62105 #### [facility] [address] [place] [address], [facility] BASIC METABOLIC PANELon 05-0 -2020 Calcium [Mass/Vol] 8.8 mg/dL Normal 8.6-10.3 [facility] Comment on above: Order Comment: No: D o not add to previous draw Pt in bath room askme to come back Performed By: #### 3 5200 #### [facility] [address] [place] [address], [facility] Chloride [Moles/Vol] 100 mmol/L Normal 98-107 [facility] Comment on above: Order Comment: No: D o not add to previous draw Pt in bath room askme to come back Performed By: #### 3 5200 #### [facility] [address] [place] [address], [place] CO2 [Moles/Vol] 28 mmol/L Normal 21-31 [facility] Comment on above: Order Comment: No: D o not add to previous draw Pt in bath room askme to come back Performed By: #### 3 5200 #### [facility] [address] [place] [address], [place] Creatinine [Mass/Vol] 0.87 mg/dL Normal 0.70-1.30 [facility] Comment on above: Order Comment: No: D o not add to previous draw Pt in bath room askme to come back Performed By: #### 3 5200 #### [facility] [address] [place] [address], [place] GFR/1.73 sq M.predicted among blacks MDRD (S/P/Bld) [Vol rate/Area] mL/min/{1.73_m2} Normal >60 [facility] Comment on above: Order Comment: No: D o not add to previous draw Pt in bath room askme to come back Performed By: #### 3 5200 #### [facility] [address] [place] [address], [place] GFR/1.73 sq M.predicted among non-blacks MDRD (S/P/Bld) [Vol rate/Area] mL/min/{1.73_m2} Normal >60 [facility] Comment on above: Order Comment: No: D o not add to previous draw Pt in bath room askme to come back Performed By: #### 3 5200 #### [facility] [address] [place] [address], [place] Glucose [Mass/Vol] 110 mg/dL High 70-100 [facility] Comment on above: Order Comment: No: D o not add to previous draw Pt in bath room askme to come back Performed By: #### 3 5200 #### [facility] [address] [place] [address], [place] Potassium [Moles/Vol] 3.7 mmol/L Normal 3.5-5.1 [facility] Comment on above: Order Comment: No: D o not add to previous draw Pt in bath room askme to come back Performed By: #### 3 5200 #### [facility] [address] [place] [address], [place] Sodium [Moles/Vol] 137 mmol/L Normal 136-145 [facility] Comment on above: Order Comment: No: D o not add to previous draw Pt in bath room askme to come back Performed By: #### 3 5200 #### [facility] [address] [place] [address], [place] Urea nitrogen [Mass/Vol] 18 mg/dL Normal 7-25 [facility] Comment on above: Order Comment: No: D o not add to previous draw Pt in bath room askme to come back Performed By: #### 3 5200 #### [facility] [address] [place] [address], [facility] TACROLIMUSon 08-17-2020 Tacrolimus (Bld) [Mass/Vol] 4.0 ng/mL Low 5.0-20.0 [facility] Comment on above: Order Comment: Unkno wn Result Comment: The [employer] Tacrolimus assay is a delayed one-step immunoassay for the quantitative determination of tacrolimus in human whole blood using the chemiluminescent microparticle immunoassay (CMIA) technology with flexible assay protocols, referred to as Chemiflex. Performed By: #### 2 5508, 99314, 09827, 09275, 13139 #### [facility] [address] [place] [address], [facility] BASIC METABOLIC PANELon Calcium [Mass/Vol] 8.3 mg/dL Low 8.6-10.3 [facility] Comment on above: Order Comment: Yes: Add to Previous draw if able Performed By: #### 2 5508, 67591, 58227, 80952, 81122 #### [facility] [address] [place] [address], [facility] Chloride [Moles/Vol] 104 mmol/L Normal 98-107 [facility] Comment on above: Order Comment: Yes: Add to Previous draw if able Performed By: #### 2 5508, 47747, 19786, 94226, 33655 #### [facility] [address] [place] [address], [place] CO2 [Moles/Vol] 24 mmol/L Normal 21-31 [facility] Comment on above: Order Comment: Yes: Add to Previous draw if able Performed By: #### 2 5508, 89071, 60036, 09208, 53092 #### [facility] [address] [place] [address], [place] Creatinine [Mass/Vol] 0.82 mg/dL Normal 0.70-1.30 [facility] Comment on above: Order Comment: Yes: Add to Previous draw if able Performed By: #### 2 5508, 34858, 58177, 64513, 41333 #### [facility] [address] [place] [address], [place] GFR/1.73 sq M.predicted among blacks MDRD (S/P/Bld) [Vol rate/Area] mL/min/{1.73_m2} Normal >60 [facility] Comment on above: Order Comment: Yes: Add to Previous draw if able Performed By: #### 2 5508, 18742, 12151, 00229, 24841 #### [facility] [address] [place] [address], [place] GFR/1.73 sq M.predicted among non-blacks MDRD (S/P/Bld) [Vol rate/Area] mL/min/{1.73_m2} Normal >60 [facility] Comment on above: Order Comment: Yes: Add to Previous draw if able Performed By: #### 2 5508, 09115, 43703, 84965, 92625 #### [facility] [address] [place] [address], [place] Glucose [Mass/Vol] 114 mg/dL High 70-100 [facility] Comment on above: Order Comment: Yes: Add to Previous draw if able Performed By: #### 2 5508, 14665, 97191, 30752, 83975 #### [facility] [address] [place] [address], [place] Potassium [Moles/Vol] 4.1 mmol/L Normal 3.5-5.1 [facility] Comment on above: Order Comment: Yes: Add to Previous draw if able Performed By: #### 2 5508, 88869, 62896, 79115, 95411 #### [facility] [address] [place] [address], [place] Sodium [Moles/Vol] 135 mmol/L Low 136-145 [facility] Comment on above: Order Comment: Yes: Add to Previous draw if able Performed By: #### 2 5508, 98001, 93026, 41804, 56941 #### [facility] [address] [place] [address], [facility] Urea nitrogen [Mass/Vol] 24 mg/dL Normal 7-25 [facility] Comment on above: Order Comment: Yes: Add to Previous draw if able Performed By: #### 2 5508, 71729, 53939, 81009, 15614 #### [facility] [address] [place] [address], [facility] MAGNESIUM BLOODon 08-16-2020 Magnesium [Mass/Vol] 1.9 mg/dL Normal 1.9-2.7 [facility] Comment on above: Order Comment: No: D o not add to previous draw Performed By: #### 4 1000, 71181, 78166 ####[facility] [place] [address], [facility] PHOSPHORUS BLOODon Phosphate [Mass/Vol] 3.1 mg/dL Normal 2.5-5.0 [facility] Comment on above: Order Comment: No: D o not add to previous draw Performed By: #### 4 1000, 66734, 37203 ####[facility] [facility] [place] [address], [facility] TACROLIMUSon 08-16-2020 Tacrolimus (Bld) [Mass/Vol] 3.5 ng/mL Low 5.0-20.0 [facility] Comment on above: Order Comment: Unkno wn Result Comment: The [employer] Tacrolimus assay is a delayed one-step immunoassay for the quantitative determination of tacrolimus in human whole blood using the chemiluminescent microparticle immunoassay (CMIA) technology with flexible assay protocols, referred to as Chemiflex. Performed By: #### 2 5508, 98397, 69529, 05448, 00698 #### [facility] [address] C REACTIVE PROTEINon 021 CRP [Mass/Vol] 20.9 mg/L High 0.0-7.0 [facility] Comment on above: Order Comment: Yes: Add to Previous draw if able Performed By: #### 2 5508, 49484, 51738, 20148, 88734 #### [facility] [address] CPKon 08-15-2020 CK [Catalytic activity/Vol] 38 U/L Normal 30-223 [facility] Comment on above: Order Comment: Unkno wn Performed By: #### 2 5508, 96159, 23297, 15914, 39599 #### [facility]. [address] D DIMER TESTon 08-15-2020 D-DIMER TEST 2.03 mcg/mL FEU High 0.27-0.49 [facility] Comment on above: Order Comment: Yes: Add to Previous draw if able Result Comment: D-Di priscilla values of less than 0.50 ug/ml (FEU) are considered to be a negative predictor of thrombosis. However, the D-Dimer result should be used in conjunction with pretest probability and should not be used alone to diagnose a thrombotic event. Performed By: #### 2 5508, 21057, 01049, 34263, 04032 #### [facility] [place] [address], [facility] FERRITINon 08-15-2020 Ferritin [Mass/Vol] 1412 ng/mL High 24-336 [facility] Comment on above: Order Comment: Unkno wn Performed By: #### 2 5508, 91036, 78418, 34891, 72862 #### [facility] [address] [facility] [place] [address], [facility] LDH BLOODon 08-15-2020 LDH 457 Units/L High 140-271 [facility] Comment on above: Order Comment: Unkno wn Performed By: #### 2 5508, 43774, 00777, 37150, 01211 #### [facility] [address] [place] [address], [facility] LIVER BATTERYon 08-15-2020 Albumin [Mass/Vol] 3.1 g/dL Low 3.5-5.7 [facility] Comment on above: Order Comment: Unkno wn Performed By: #### 2 5508, 88036, 22526, 00311, 61201 #### [facility] [address] [place] [address], [place] ALKALINE PHOSPH 94 IU/L Normal 34-104 [facility] Comment on above: Order Comment: Unkno wn Performed By: #### 2 5508, 40857, 47227, 53089, 16398 #### [facility] [address] [place] [address], [place] ALT [Catalytic activity/Vol] 108 U/L High 7-52 [facility] Comment on above: Order Comment: Unkno wn Performed By: #### 2 5508, 14552, 36913, 46940, 21089 #### [facility] [address] [place] [address], [facility] AST [Catalytic activity/Vol] 54 U/L High 13-39 [facility] Comment on above: Order Comment: Unkno wn Performed By: #### 2 5508, 48445, 19018, 05018, 00050 #### [facility] [address] [place] [address], [place] Bilirubin [Mass/Vol] 0.8 mg/dL Normal 0.3-1.0 [facility] Comment on above: Order Comment: Unkno wn Performed By: #### 2 5508, 50257, 82821, 16693, 90081 #### [facility] [address] [place] [address], [place] Bilirubin.direct [Mass/Vol] 0.2 mg/dL Normal 0.0-0.2 [facility] Comment on above: Order Comment: Unkno wn Performed By: #### 2 5508, 88872, 33089, 41468, 19822 #### [facility] [address] [place] [address], [facility] Protein [Mass/Vol] 5.9 g/dL Low 6.0-8.3 [facility] Comment on above: Order Comment: Unkno wn Performed By: #### 2 5508, 47848, 75528, 06772, 77557 #### [facility] [address] [place] [id number], [facility] TACROLIMUSon 08-15-2020 Tacrolimus (Bld) [Mass/Vol] 4.4 ng/mL Low 5.0-20.0 [facility] Comment on above: Order Comment: Yes: Add to Previous draw if able Result Comment: The [employer] Tacrolimus assay is a delayed one-step immunoassay for the quantitative determination of tacrolimus in human whole blood using the chemiluminescent microparticle immunoassay (CMIA) technology with flexible assay protocols, referred to as Chemiflex. Performed By: #### 2 5508, 04308, 35419, 19077, 47444 #### [facility] [address] [place] [address], [facility] BASIC METABOLIC PANELon 07-18 Calcium [Mass/Vol] 8.2 mg/dL Low 8.6-10.3 [facility] Comment on above: Order Comment: No: D o not add to previous draw Performed By: #### 2 5508, 08216, 63329, 38999, 08524 #### [facility] [address] [place] [address], [facility] Chloride [Moles/Vol] 102 mmol/L Normal 98-107 [facility] Comment on above: Order Comment: No: D o not add to previous draw Performed By: #### 2 5508, 01462, 13942, 82950, 26902 #### [facility] [address] [place] [address], [place] CO2 [Moles/Vol] 19 mmol/L Low 21-31 [facility] Comment on above: Order Comment: No: D o not add to previous draw Performed By: #### 2 5508, 71856, 48147, 60758, 25847 #### [facility] [address] [place] [address], [place] Creatinine [Mass/Vol] 0.95 mg/dL Normal 0.70-1.30 [facility] Comment on above: Order Comment: No: D o not add to previous draw Performed By: #### 2 5508, 98730, 71328, 47634, 29677 #### [facility] [address] [place] [address], [place] GFR/1.73 sq M.predicted among blacks MDRD (S/P/Bld) [Vol rate/Area] mL/min/{1.73_m2} Normal >60 [facility] Comment on above: Order Comment: No: D o not add to previous draw Performed By: #### 2 5508, 40705, 67055, 62283, 95265 #### [facility] [address] [place] [address], [place] GFR/1.73 sq M.predicted among non-blacks MDRD (S/P/Bld) [Vol rate/Area] mL/min/{1.73_m2} Normal >60 [facility] Comment on above: Order Comment: No: D o not add to previous draw Performed By: #### 2 5508, 92679, 30771, 31672, 61788 #### [facility] [address] [place] [address], [place] Glucose [Mass/Vol] 253 mg/dL High 70-100 [facility] Comment on above: Order Comment: No: D o not add to previous draw Performed By: #### 2 5508, 80018, 39317, 88229, 96017 #### [facility] [address] [place] [address], [place] Potassium [Moles/Vol] 4.0 mmol/L Normal 3.5-5.1 [facility] Comment on above: Order Comment: No: D o not add to previous draw Performed By: #### 2 5508, 75936, 69764, 52593, 20261 #### [facility] [address] Sodium [Moles/Vol] 130 mmol/L Low 136-145 [facility] Comment on above: Order Comment: No: D o not add to previous draw Performed By: #### 2 5508, 18092, 10011, 64331, 95916 #### [facility] [address] Urea nitrogen [Mass/Vol] 34 mg/dL High 7-25 [facility] Comment on above: Order Comment: No: D o not add to previous draw Performed By: #### 2 5508, 65382, 56498, 06545, 56296 #### [facility] [address] C REACTIVE PROTEINon 021 CRP [Mass/Vol] 19.7 mg/L High 0.0-7.0 [facility] Comment on above: Order Comment: No: D o not add to previous draw Performed By: #### 6 1405 #### [facility] [address] [facility]. [address] COMP METABOLIC PANELon 08-14 Albumin [Mass/Vol] 3.0 g/dL Low 3.5-5.7 [facility] Comment on above: Order Comment: This order is a replacement of the rejected order with accession [id number]. Performed By: #### 2 5508, 12672, 41155, 52002, 92166 #### [facility] [address] ALKALINE PHOSPH 81 IU/L Normal 34-104 [facility] Comment on above: Order Comment: This order is a replacement of the rejected order with accession [id number]. Performed By: #### 2 5508, 77788, 73680, 45836, 70262 #### [facility] [address] [place] [address], [facility] ALT [Catalytic activity/Vol] 80 U/L High 7-52 [facility] Comment on above: Order Comment: This order is a replacement of the rejected order with accession [id number]. Performed By: #### 2 5508, 77495, 08842, 46465, 50540 #### [facility] [address] [place] [address], [facility] AST [Catalytic activity/Vol] 52 U/L High 13-39 [facility] Comment on above: Order Comment: This order is a replacement of the rejected order with accession [id number]. Performed By: #### 2 5508, 70763, 41712, 35655, 40695 #### [facility] [address] [place] [id number], [facility] Bilirubin [Mass/Vol] 0.7 mg/dL Normal 0.3-1.0 [facility] Comment on above: Order Comment: This order is a replacement of the rejected order with accession [id number]. Performed By: #### 2 5508, 91654, 28488, 66398, 40508 #### [facility] [address] [place] [id number], [facility] Calcium [Mass/Vol] 8.1 mg/dL Low 8.6-10.3 [facility] Comment on above: Order Comment: This order is a replacement of the rejected order with accession [id number]. Performed By: #### 2 5508, 36869, 28849, 85053, 33129 #### [facility] [address] [place] [id number], [facility] Chloride [Moles/Vol] 102 mmol/L Normal 98-107 [facility] Comment on above: Order Comment: This order is a replacement of the rejected order with accession [id number]. Performed By: #### 2 5508, 52373, 18791, 46464, 13100 #### [facility] [address] [place] [address], [place] CO2 [Moles/Vol] 24 mmol/L Normal 21-31 [facility] Comment on above: Order Comment: This order is a replacement of the rejected order with accession [id number]. Performed By: #### 2 5508, 45581, 77354, 76799, 19770 #### [facility] [address] [place] [address], [place] Creatinine [Mass/Vol] 0.98 mg/dL Normal 0.70-1.30 [facility] Comment on above: Order Comment: This order is a replacement of the rejected order with accession [id number]. Performed By: #### 2 5508, 10321, 73097, 50702, 71019 #### [facility] [address] [place] [address], [place] GFR/1.73 sq M.predicted among blacks MDRD (S/P/Bld) [Vol rate/Area] mL/min/{1.73_m2} Normal >60 [facility] Comment on above: Order Comment: This order is a replacement of the rejected order with accession [id number]. Performed By: #### 2 5508, 02502, 81436, 59824, 63878 #### [facility] [address] [place] [address], [place] GFR/1.73 sq M.predicted among non-blacks MDRD (S/P/Bld) [Vol rate/Area] mL/min/{1.73_m2} Normal >60 [facility] Comment on above: Order Comment: This order is a replacement of the rejected order with accession [id number]. Performed By: #### 2 5508, 23780, 80500, 68933, 85552 #### [facility] [address] [place] [address], [place] Glucose [Mass/Vol] 141 mg/dL High 70-100 [facility] Comment on above: Order Comment: This order is a replacement of the rejected order with accession [id number]. Performed By: #### 2 5508, 13419, 03742, 18749, 64438 #### [facility] [address] [place] [address], [facility] Potassium [Moles/Vol] 4.2 mmol/L Normal 3.5-5.1 [facility] Comment on above: Order Comment: This order is a replacement of the rejected order with accession [id number]. Performed By: #### 2 5508, 18406, 18517, 23902, 36264 #### [facility] [address] [place] [address], [facility] Protein [Mass/Vol] 5.6 g/dL Low 6.0-8.3 [facility] Comment on above: Order Comment: This order is a replacement of the rejected order with accession [id number]. Performed By: #### 2 5508, 52322, 39111, 97345, 87025 #### [facility] [address] [place] [address], [facility] Sodium [Moles/Vol] 132 mmol/L Low 136-145 [facility] Comment on above: Order Comment: This order is a replacement of the rejected order with accession [id number]. Performed By: #### 2 5508, 63411, 15506, 46555, 66537 #### [facility] [address] [place] [address], [facility] Urea nitrogen [Mass/Vol] 32 mg/dL High 7-25 [facility] Comment on above: Order Comment: This order is a replacement of the rejected order with accession [id number]. Performed By: #### 2 5508, 48350, 05987, 84047, 76731 #### [facility] [address] [place] [address], [facility] CPKon 08-14-2020 CK [Catalytic activity/Vol] 47 U/L Normal 30-223 [facility] Comment on above: Order Comment: No: D o not add to previous draw Performed By: #### 2 5508, 72317, 44184, 20181, 44459 #### [facility] [address] [place] [address], [facility] D DIMER TESTon 08-14-2020 D-DIMER TEST 2.41 mcg/mL FEU High 0.27-0.49 [facility] Comment on above: Order Comment: No: D o not add to previous draw Result Comment: D-Di priscilla values of less than 0.50 ug/ml (FEU) are considered to be a negative predictor of thrombosis. However, the D-Dimer result should be used in conjunction with pretest probability and should not be used alone to diagnose a thrombotic event. Performed By: #### 6 1405 #### [facility] [address] [place] [address], [facility] FERRITINon 08-14-2020 Ferritin [Mass/Vol] 836 ng/mL High 24-336 [facility] Comment on above: Order Comment: No: D o not add to previous draw Performed By: #### 2 5508, 12911, 36179, 14283, 01997 #### [facility] [address] [facility] [place] [address], [facility] LDH BLOODon 08-14-2020 LDH 310 Units/L High 140-271 [facility] Comment on above: Order Comment: No: D o not add to previous draw Performed By: #### 2 5508, 89803, 11784, 14103, 44267 #### [facility] [address] [place] [address], [facility] LIVER BATTERYon 08-14-2020 Albumin [Mass/Vol] 2.9 g/dL Low 3.5-5.7 [facility] Comment on above: Order Comment: No: D o not add to previous draw Performed By: #### 2 5508, 90870, 60419, 30078, 69898 #### [facility] [address] [place] [address], [place] ALKALINE PHOSPH 78 IU/L Normal 34-104 [facility] Comment on above: Order Comment: No: D o not add to previous draw Performed By: #### 2 5508, 95711, 25282, 36926, 62033 #### [facility] [address] [place] [id number], [facility] ALT [Catalytic activity/Vol] 83 U/L High 7-52 [facility] Comment on above: Order Comment: No: D o not add to previous draw Performed By: #### 2 5508, 04707, 56032, 41629, 78822 #### [facility] [address] [place] [address], [facility] AST [Catalytic activity/Vol] 46 U/L High 13-39 [facility] Comment on above: Order Comment: No: D o not add to previous draw Performed By: #### 2 5508, 06088, 46235, 92877, 64814 #### [facility] [address] [place] [address], [place] Bilirubin [Mass/Vol] 0.6 mg/dL Normal 0.3-1.0 [facility] Comment on above: Order Comment: No: D o not add to previous draw Performed By: #### 2 5508, 40129, 52017, 82444, 43542 #### [facility] [address] [place] [address], [place] Bilirubin.direct [Mass/Vol] 0.2 mg/dL Normal 0.0-0.2 [facility] Comment on above: Order Comment: No: D o not add to previous draw Performed By: #### 2 5508, 22176, 04688, 34286, 84105 #### [facility] [address] [place] [address], [place] Protein [Mass/Vol] 5.3 g/dL Low 6.0-8.3 [facility] Comment on above: Order Comment: No: D o not add to previous draw Performed By: #### 2 5508, 80066, 91071, 80630, 99326 #### [facility] [address] [facility] [place] [address], [facility] OSMOLALITY BLOODon Osmolality [Osmolality] 291 mosm/kg Normal 285-305 [facility] Comment on above: Order Comment: No: D o not add to previous draw Performed By: #### 2 5508, 51053, 86531, 74463, 52986 #### [facility] [address] [facility] [place] [address], [facility] TACROLIMUSon 08-14-2020 Tacrolimus (Bld) [Mass/Vol] 9.7 ng/mL Normal 5.0-20.0 [facility] Comment on above: Order Comment: Yes: Add to Previous draw if able Result Comment: The [employer] Tacrolimus assay is a delayed one-step immunoassay for the quantitative determination of tacrolimus in human whole blood using the chemiluminescent microparticle immunoassay (CMIA) technology with flexible assay protocols, referred to as Chemiflex. Performed By: #### 2 5508, 46792, 25085, 90336, 39799 #### [facility] [address] [facility]. [address] Tacrolimus (Bld) [Mass/Vol] 5.7 ng/mL Normal 5.0-20.0 [facility] Comment on above: Order Comment: Yes: Add to Previous draw if able Result Comment: The [employer] Tacrolimus assay is a delayed one-step immunoassay for the quantitative determination of tacrolimus in human whole blood using the chemiluminescent microparticle immunoassay (CMIA) technology with flexible assay protocols, referred to as Chemiflex. Performed By: #### 2 5508, 76481, 49907, 74224, 40205 #### [facility] [address] [facility] [place] [address], [facility] COMP METABOLIC PANELon 08-12 Albumin [Mass/Vol] 3.2 g/dL Low 3.5-5.7 [facility] Comment on above: Order Comment: No: D o not add to previous draw Performed By: #### 2 5508, 99564, 09479, 02016, 90804 #### [facility] [address] [place] [address], [place] ALKALINE PHOSPH 89 IU/L Normal 34-104 [facility] Comment on above: Order Comment: No: D o not add to previous draw Performed By: #### 2 5508, 44810, 08894, 85596, 41396 #### [facility] [address] [place] [address], [place] ALT [Catalytic activity/Vol] 69 U/L High 7-52 [facility] Comment on above: Order Comment: No: D o not add to previous draw Performed By: #### 2 5508, 17319, 38151, 56559, 71379 #### [facility] [address] [place] [address], [place] AST [Catalytic activity/Vol] 54 U/L High 13-39 [facility] Comment on above: Order Comment: No: D o not add to previous draw Performed By: #### 2 5508, 84385, 80755, 33066, 73493 #### [facility] [address] [place] [address], [place] Bilirubin [Mass/Vol] 1.0 mg/dL Normal 0.3-1.0 [facility] Comment on above: Order Comment: No: D o not add to previous draw Performed By: #### 2 5508, 49638, 13725, 24991, 51182 #### [facility] [address] [place] [address], [place] Calcium [Mass/Vol] 8.8 mg/dL Normal 8.6-10.3 [facility] Comment on above: Order Comment: No: D o not add to previous draw Performed By: #### 2 5508, 55698, 26030, 46959, 56975 #### [facility] [address] [place] [address], [place] Chloride [Moles/Vol] 97 mmol/L Low 98-107 [facility] Comment on above: Order Comment: No: D o not add to previous draw Performed By: #### 2 5508, 23624, 78455, 25027, 62524 #### [facility] [address] [place] [address], [place] CO2 [Moles/Vol] 24 mmol/L Normal 21-31 [facility] Comment on above: Order Comment: No: D o not add to previous draw Performed By: #### 2 5508, 60130, 30984, 69912, 02384 #### [facility] [address] [place] [address], [place] Creatinine [Mass/Vol] 0.82 mg/dL Normal 0.70-1.30 [facility] Comment on above: Order Comment: No: D o not add to previous draw Performed By: #### 2 5508, 90452, 82723, 28427, 46626 #### [facility] [address] [place] [address], [place] GFR/1.73 sq M.predicted among blacks MDRD (S/P/Bld) [Vol rate/Area] mL/min/{1.73_m2} Normal >60 [facility] Comment on above: Order Comment: No: D o not add to previous draw Performed By: #### 2 5508, 59629, 39023, 69864, 97791 #### [facility] [address] [place] [address], [place] GFR/1.73 sq M.predicted among non-blacks MDRD (S/P/Bld) [Vol rate/Area] mL/min/{1.73_m2} Normal >60 [facility] Comment on above: Order Comment: No: D o not add to previous draw Performed By: #### 2 5508, 12482, 74594, 94246, 28142 #### [facility] [address] [place] [address], [place] Glucose [Mass/Vol] 154 mg/dL High 70-100 [facility] Comment on above: Order Comment: No: D o not add to previous draw Performed By: #### 2 5508, 71339, 42100, 86646, 19900 #### [facility] [address] [place] [address], [place] Potassium [Moles/Vol] 4.9 mmol/L Normal 3.5-5.1 [facility] Comment on above: Order Comment: No: D o not add to previous draw Performed By: #### 2 5508, 54479, 61608, 38440, 84320 #### [facility] [address] [place] [address], [place] Protein [Mass/Vol] 6.1 g/dL Normal 6.0-8.3 [facility] Comment on above: Order Comment: No: D o not add to previous draw Performed By: #### 2 5508, 01766, 21168, 86289, 38620 #### [facility] [address] [place] [address], [place] Sodium [Moles/Vol] 128 mmol/L Low 136-145 [facility] Comment on above: Order Comment: No: D o not add to previous draw Performed By: #### 2 5508, 67186, 84863, 90945, 55725 #### [facility] [address] [place] [address], [place] Urea nitrogen [Mass/Vol] 32 mg/dL High 7-25 [facility] Comment on above: Order Comment: No: D o not add to previous draw Performed By: #### 2 5508, 11583, 57012, 37012, 89661 #### [facility] [address] [place] [address], [place] OSMOLALITY URINEon 1 OSMOLALITY 857 mOsm/kg Normal 50-1400 [facility] Comment on above: Order Comment: No: D o not add to previous draw Performed By: #### 2 5508, 13109, 64033, 96139, 16566 #### [facility] [address] [place] [address], [facility] SODIUM URINE RANDOMon 2020 Sodium (U) [Moles/Vol] 51 mmol/L Normal [facility] Comment on above: Order Comment: No: D o not add to previous draw Result Comment: Ther e are no established reference values for random urine specimens Performed By: #### 2 5508, 75966, 50847, 88477, 17373 #### [facility] [address] [facility] [place] [address], [facility] TACROLIMUSon 08-12-2020 Tacrolimus (Bld) [Mass/Vol] 5.2 ng/mL Normal 5.0-20.0 [facility] Comment on above: Order Comment: Unkno wn Result Comment: The [employer] Tacrolimus assay is a delayed one-step immunoassay for the quantitative determination of tacrolimus in human whole blood using the chemiluminescent microparticle immunoassay (CMIA) technology with flexible assay protocols, referred to as Chemiflex. Performed By: #### 9 9914 ####[facility] [place] [address], [facility] BASIC METABOLIC PANELon 07-17 Calcium [Mass/Vol] 8.6 mg/dL Normal 8.6-10.3 [facility] Comment on above: Order Comment: No: D o not add to previous draw Performed By: #### 2 5508, 98666, 35507, 34989, 71188 #### [facility] [address] [facility] [place] [address], [facility] Chloride [Moles/Vol] 97 mmol/L Low 98-107 [facility] Comment on above: Order Comment: No: D o not add to previous draw Performed By: #### 2 5508, 30695, 70745, 28755, 46495 #### [facility] [address] [facility] [place] [address], [facility] CO2 [Moles/Vol] 23 mmol/L Normal 21-31 [facility] Comment on above: Order Comment: No: D o not add to previous draw Performed By: #### 2 5508, 73118, 03275, 33442, 75532 #### [facility] [address] [place] [address], [place] Creatinine [Mass/Vol] 0.82 mg/dL Normal 0.70-1.30 [facility] Comment on above: Order Comment: No: D o not add to previous draw Performed By: #### 2 5508, 34177, 44362, 24527, 95872 #### [facility] [address] [place] [address], [place] GFR/1.73 sq M.predicted among blacks MDRD (S/P/Bld) [Vol rate/Area] mL/min/{1.73_m2} Normal >60 [facility] Comment on above: Order Comment: No: D o not add to previous draw Performed By: #### 2 5508, 49206, 52591, 80571, 52940 #### [facility] [address] [place] [address], [place] GFR/1.73 sq M.predicted among non-blacks MDRD (S/P/Bld) [Vol rate/Area] mL/min/{1.73_m2} Normal >60 [facility] Comment on above: Order Comment: No: D o not add to previous draw Performed By: #### 2 5508, 49029, 98569, 20341, 39507 #### [facility] [address] [place] [address], [place] Glucose [Mass/Vol] 166 mg/dL High 70-100 [facility] Comment on above: Order Comment: No: D o not add to previous draw Performed By: #### 2 5508, 23933, 28740, 08154, 28587 #### [facility] [address] [place] [address], [place] Potassium [Moles/Vol] 4.9 mmol/L Normal 3.5-5.1 [facility] Comment on above: Order Comment: No: D o not add to previous draw Performed By: #### 2 5508, 17312, 12965, 95094, 04435 #### [facility] [address] [place] [address], [facility] Sodium [Moles/Vol] 127 mmol/L Low 136-145 [facility] Comment on above: Order Comment: No: D o not add to previous draw Performed By: #### 2 5508, 56201, 08240, 45772, 04965 #### [facility] [address] [place] [address], [facility] Urea nitrogen [Mass/Vol] 33 mg/dL High 7-25 [facility] Comment on above: Order Comment: No: D o not add to previous draw Performed By: #### 2 5508, 13149, 95166, 48474, 87506 #### [facility] [address] [place] [address], [facility] CREATININE URINE RANDOMon Creatinine (U) [Mass/Vol] 59.0 mg/dL Normal [facility] Comment on above: Order Comment: Yes: Add to Previous draw if able Result Comment: Ther e are no established reference values for random urine specimens Performed By: #### 2 5508, 99634, 20776, 25890, 25429 #### [facility] [address] [place] [address], [facility] MAGNESIUM BLOODon 08-11-2020 Magnesium [Mass/Vol] 1.7 mg/dL Low 1.9-2.7 [facility] Comment on above: Order Comment: No: D o not add to previous draw Performed By: #### 2 5508, 36958, 06834, 25332, 05725 #### [facility] [address] [place] [address], [place] SODIUM URINE RANDOMon 2020 Sodium (U) [Moles/Vol] 90 mmol/L Normal [facility] Comment on above: Order Comment: Yes: Add to Previous draw if able Result Comment: Ther e are no established reference values for random urine specimens Performed By: #### 2 5508, 34969, 99150, 68382, 12469 #### [facility] [address] [place] [address], [facility] TACROLIMUSon 08-11-2020 Tacrolimus (Bld) [Mass/Vol] 6.3 ng/mL Normal 5.0-20.0 [facility] Comment on above: Order Comment: Yes: Add to Previous draw if able Result Comment: The [employer] Tacrolimus assay is a delayed one-step immunoassay for the quantitative determination of tacrolimus in human whole blood using the chemiluminescent microparticle immunoassay (CMIA) technology with flexible assay protocols, referred to as Chemiflex. Performed By: #### 2 5508, 22940, 46304, 33063, 09258 #### [facility] [address] [place] [address], [facility] BASIC METABOLIC PANELon 07-17 Calcium [Mass/Vol] 8.3 mg/dL Low 8.6-10.3 [facility] Comment on above: Order Comment: Yes: Add to Previous draw if able Performed By: #### 2 5508, 65530, 36362, 52593, 78414 #### [facility] [address] [facility] [place] [address], [facility] Chloride [Moles/Vol] 102 mmol/L Normal 98-107 [facility] Comment on above: Order Comment: Yes: Add to Previous draw if able Performed By: #### 2 5508, 39840, 73745, 41745, 93725 #### [facility] [address] [place] [id number], [facility] CO2 [Moles/Vol] 20 mmol/L Low 21-31 [facility] Comment on above: Order Comment: Yes: Add to Previous draw if able Performed By: #### 2 5508, 93351, 44810, 90850, 67738 #### [facility] [address] [place] [address], [facility] Creatinine [Mass/Vol] 0.78 mg/dL Normal 0.70-1.30 [facility] Comment on above: Order Comment: Yes: Add to Previous draw if able Performed By: #### 2 5508, 06027, 05845, 13990, 93118 #### [facility] [address] [place] [id number], [place] GFR/1.73 sq M.predicted among blacks MDRD (S/P/Bld) [Vol rate/Area] mL/min/{1.73_m2} Normal >60 [facility] Comment on above: Order Comment: Yes: Add to Previous draw if able Performed By: #### 2 5508, 02519, 82768, 58536, 58256 #### [facility] [address] [place] [address], [place] GFR/1.73 sq M.predicted among non-blacks MDRD (S/P/Bld) [Vol rate/Area] mL/min/{1.73_m2} Normal >60 [facility] Comment on above: Order Comment: Yes: Add to Previous draw if able Performed By: #### 2 5508, 85960, 51343, 91325, 68870 #### [facility] [address] [place] [address], [place] Glucose [Mass/Vol] 199 mg/dL High 70-100 [facility] Comment on above: Order Comment: Yes: Add to Previous draw if able Performed By: #### 2 5508, 28277, 89507, 66204, 29135 #### [facility] [address] [place] [address], [place] Potassium [Moles/Vol] 4.9 mmol/L Normal 3.5-5.1 [facility] Comment on above: Order Comment: Yes: Add to Previous draw if able Performed By: #### 2 5508, 42617, 71045, 57210, 81200 #### [facility] [address] [place] [address], [place] Sodium [Moles/Vol] 129 mmol/L Low 136-145 [facility] Comment on above: Order Comment: Yes: Add to Previous draw if able Performed By: #### 2 5508, 64478, 05969, 83903, 46998 #### [facility] [address] [place] [address], [place] Urea nitrogen [Mass/Vol] 33 mg/dL High 7-25 [facility] Comment on above: Order Comment: Yes: Add to Previous draw if able Performed By: #### 2 5508, 81717, 09514, 28656, 46215 #### [facility] [address] [place] [address], [place] CBC COMPLETE BLOOD COUNTon 0 08-10-2020 Erythrocyte distribution width (RBC) [Ratio] 12.9 % Normal 11.5-15.0 [facility] Comment on above: Order Comment: No: D o not add to previous draw Performed By: #### 6 1405 #### [facility] [address] [place] [address], [place] Hematocrit (Bld) [Volume fraction] 45.9 % Normal 39.0-50.0 [facility] Comment on above: Order Comment: No: D o not add to previous draw Performed By: #### 6 1405 #### [facility] [address] [place] [address], [place] Hemoglobin (Bld) [Mass/Vol] 15.3 g/dL Normal 13.0-17.0 [facility] Comment on above: Order Comment: No: D o not add to previous draw Performed By: #### 6 1405 #### [facility] [address] [place] [address], [place] MCH (RBC) [Entitic mass] 29.3 pg Normal 27.0-33.0 [facility] Comment on above: Order Comment: No: D o not add to previous draw Performed By: #### 6 1405 #### [facility] [address] [place] [address], [place] MCHC (RBC) [Mass/Vol] 33.3 g/dL Normal 32.0-35.0 [facility] Comment on above: Order Comment: No: D o not add to previous draw Performed By: #### 6 1405 #### [facility] [address] [place] [address], [facility] MCV (RBC) [Entitic vol] 87.8 fL Normal 82.0-98.0 [facility] Comment on above: Order Comment: No: D o not add to previous draw Performed By: #### 6 1405 #### [facility] [address] [place] [address], [facility] Nucleated RBC/100 WBC (Bld) [Ratio] 0 % Normal 0-0 [facility] Comment on above: Order Comment: No: D o not add to previous draw Performed By: #### 6 1405 #### [facility] [address] [place] [address], [facility] PLAT CNT 422 10*3/uL High 150-400 [facility] Comment on above: Order Comment: No: D o not add to previous draw Performed By: #### 6 1405 #### [facility] [address] [facility] [place] [address], [facility] RBC (Bld) [#/Vol] 5.23 10*6/uL Normal 4.20-5.70 [facility] Comment on above: Order Comment: No: D o not add to previous draw Performed By: #### 6 1405 #### [facility] [address] [place] [address], [facility] WBC (Bld) [#/Vol] 7.77 10*3/uL Normal 4.00-10.60 [facility] Comment on above: Order Comment: No: D o not add to previous draw Performed By: #### 6 1405 #### [facility] [address] [place] [address], [facility] MAGNESIUM BLOODon 04-26-2021 Magnesium [Mass/Vol] 1.7 mg/dL Low 1.9-2.7 [facility] Comment on above: Order Comment: Yes: Add to Previous draw if able Performed By: #### 2 5508, 39506, 26708, 27934, 18294 #### [address] PORTABLE CHEST 1 VIEWon 07-17 PORTABLE CHEST 1 VIEW [facility] Department of Radiology [address] [place] [id number] == Patient Name: VISHAL DUKE : 1960 Sex: M Age: Race: White Pt. Location: [id number] Patient Status: I Ordered Date: 08/10/2020 7:40:00 [...] pneumothorax. Electronically signed: Brett Mc. Transcribed by: [id number], User Resident: Electronically Signed by: BRETT MC @ 08/10/2020 10:10 AM Normal [facility] Comment on above: Order Comment: No: D o not add to previous draw CV'D BY [facility] AT 1240 TACROLIMUSon 08-10-2020 Tacrolimus (Bld) [Mass/Vol] 11.2 ng/mL Normal 5.0-20.0 [facility] Comment on above: Order Comment: No: D o not add to previous draw Result Comment: The [employer] Tacrolimus assay is a delayed one-step immunoassay for the quantitative determination of tacrolimus in human whole blood using the chemiluminescent microparticle immunoassay (CMIA) technology with flexible assay protocols, referred to as Chemiflex. Performed By: #### 2 5508, 89735, 82066, 55700, 80468 #### [facility] [address] [place] [address], [facility] TACROLIMUSon 08-09-2020 Tacrolimus (Bld) [Mass/Vol] 11.0 ng/mL Normal 5.0-20.0 [facility] Comment on above: Order Comment: Yes: Add to Previous draw if able Result Comment: The [employer] Tacrolimus assay is a delayed one-step immunoassay for the quantitative determination of tacrolimus in human whole blood using the chemiluminescent microparticle immunoassay (CMIA) technology with flexible assay protocols, referred to as Chemiflex. Performed By: #### 2 5508, 45057, 98430, 01039, 73754 #### [facility] [address] [place] [address], [facility] TROPONIN-Ion 08-09-2020 Troponin I.cardiac [Mass/Vol] 5.31 ng/mL Critically high 0.00-0.04 [facility] Comment on above: Order Comment: Yes: Add to Previous draw if able Result Comment: M-CT EVIOUS CRITICAL RESULT REFERENCE RANGES: 0.00 - 0.04 ng/ml NORMAL 0.05 - 0.50 ng/ml INDETERMINATE > 0.50 ng/ml CONSISTENT WITH AN M.I. Performed By: #### 2 5508, 77846, 70999, 33916, 12301 #### [facility] [address] UFH HEPARIN ASSAYon 08-10-19 21 UNFRACTIONATED HEPARIN <0.10 Critically low 0.30-0.70 [facility] Comment on above: Result Comment: [place] roxaban and Apixaban will interfere with the anti Xa assay used to monitor UFH and LMWH. Results called. Accurately read back by Luiz Shaffer RN at 0709 Performed By: #### 3 0477 ####[facility] COMP METABOLIC PANELon 08-08 Albumin [Mass/Vol] 2.8 g/dL Low 3.5-5.7 [facility] Comment on above: Order Comment: Yes: Add to Previous draw if able Performed By: #### 2 5508, 71368, 59962, 11783, 60345 #### [facility] [address] [place] [address], [facility] ALKALINE PHOSPH 70 IU/L Normal 34-104 [facility] Comment on above: Order Comment: Yes: Add to Previous draw if able Performed By: #### 2 5508, 86032, 56311, 04695, 02160 #### [facility] [address] [place] [address], [place] ALT [Catalytic activity/Vol] 30 U/L Normal 7-52 [facility] Comment on above: Order Comment: Yes: Add to Previous draw if able Performed By: #### 2 5508, 32979, 06316, 76868, 21019 #### [facility] [address] [place] [address], [place] AST [Catalytic activity/Vol] 48 U/L High 13-39 [facility] Comment on above: Order Comment: Yes: Add to Previous draw if able Performed By: #### 2 5508, 97828, 75663, 50767, 90106 #### [facility] [address] [place] [address], [place] Bilirubin [Mass/Vol] 0.9 mg/dL Normal 0.3-1.0 [facility] Comment on above: Order Comment: Yes: Add to Previous draw if able Performed By: #### 2 5508, 04145, 93886, 39951, 81671 #### [facility] [address] [place] [address], [place] Calcium [Mass/Vol] 8.1 mg/dL Low 8.6-10.3 [facility] Comment on above: Order Comment: Yes: Add to Previous draw if able Performed By: #### 2 5508, 48705, 32839, 95058, 59118 #### [facility] [address] [place] [address], [place] Chloride [Moles/Vol] 104 mmol/L Normal 98-107 [facility] Comment on above: Order Comment: Yes: Add to Previous draw if able Performed By: #### 2 5508, 69487, 53427, 67269, 38242 #### [facility] [address] [place] [address], [place] CO2 [Moles/Vol] 19 mmol/L Low 21-31 [facility] Comment on above: Order Comment: Yes: Add to Previous draw if able Performed By: #### 2 5508, 37441, 96222, 21192, 09716 #### [facility] [address] [place] [address], [place] Creatinine [Mass/Vol] 0.92 mg/dL Normal 0.70-1.30 [facility] Comment on above: Order Comment: Yes: Add to Previous draw if able Performed By: #### 2 5508, 94541, 30391, 68958, 46588 #### [facility] [address] [place] [address], [place] GFR/1.73 sq M.predicted among blacks MDRD (S/P/Bld) [Vol rate/Area] mL/min/{1.73_m2} Normal >60 [facility] Comment on above: Order Comment: Yes: Add to Previous draw if able Performed By: #### 2 5508, 48879, 05971, 65943, 58282 #### [facility] [address] [place] [address], [place] GFR/1.73 sq M.predicted among non-blacks MDRD (S/P/Bld) [Vol rate/Area] mL/min/{1.73_m2} Normal >60 [facility] Comment on above: Order Comment: Yes: Add to Previous draw if able Performed By: #### 2 5508, 92312, 75007, 27310, 17558 #### [facility] [address] [place] [address], [place] Glucose [Mass/Vol] 159 mg/dL High 70-100 [facility] Comment on above: Order Comment: Yes: Add to Previous draw if able Performed By: #### 2 5508, 33095, 37438, 58109, 91901 #### [facility] [address] [place] [address], [place] Potassium [Moles/Vol] 5.2 mmol/L High 3.5-5.1 [facility] Comment on above: Order Comment: Yes: Add to Previous draw if able Performed By: #### 2 5508, 22548, 18558, 74393, 69997 #### [facility] [address] [place] [address], [place] Protein [Mass/Vol] 5.5 g/dL Low 6.0-8.3 [facility] Comment on above: Order Comment: Yes: Add to Previous draw if able Performed By: #### 2 5508, 62492, 51072, 04926, 65163 #### [facility] [address] [place] [address], [facility] Sodium [Moles/Vol] 133 mmol/L Low 136-145 [facility] Comment on above: Order Comment: Yes: Add to Previous draw if able Performed By: #### 2 5508, 97872, 53216, 10110, 79735 #### [facility] [address] [place] [address], [facility] Urea nitrogen [Mass/Vol] 35 mg/dL High 7-25 [facility] Comment on above: Order Comment: Yes: Add to Previous draw if able Performed By: #### 2 5508, 80716, 60511, 77730, 23417 #### [facility] [address] TACROLIMUSon 08-08-2020 Tacrolimus (Bld) [Mass/Vol] 7.8 ng/mL Normal 5.0-20.0 [facility] Comment on above: Order Comment: Unkno wn Result Comment: The [employer] Tacrolimus assay is a delayed one-step immunoassay for the quantitative determination of tacrolimus in human whole blood using the chemiluminescent microparticle immunoassay (CMIA) technology with flexible assay protocols, referred to as Chemiflex. Performed By: #### 2 5508, 02309, 94136, 06267, 72743 #### [facility] [address] UFH HEPARIN ASSAYon 08-09-19 21 UNFRACTIONATED HEPARIN 0.74 IU/mL High 0.30-0.70 [facility] Comment on above: Result Comment: [place] roxaban and Apixaban will interfere with the anti Xa assay used to monitor UFH and LMWH. Performed By: #### 3 0477 ####[facility].[address] C REACTIVE PROTEINon 021 CRP [Mass/Vol] 75.8 mg/L High 0.0-7.0 [facility] Comment on above: Order Comment: No: D o not add to previous draw CV'D BY [facility] AT 1240 Performed By: #### 6 1405 #### [facility] [address] [facility] [place] [address], [facility] SEDIMENTATION RATEon 021 SED RATE 30 mm/hr High 0-10 [facility] Comment on above: Order Comment: No: D o not add to previous draw Performed By: #### 6 1405 #### [facility] [address] [place] [address], [facility] TACROLIMUSon 08-07-2020 Tacrolimus (Bld) [Mass/Vol] 9.1 ng/mL Normal 5.0-20.0 [facility] Comment on above: Order Comment: Unkno wn Result Comment: The [employer] Tacrolimus assay is a delayed one-step immunoassay for the quantitative determination of tacrolimus in human whole blood using the chemiluminescent microparticle immunoassay (CMIA) technology with flexible assay protocols, referred to as Chemiflex. Performed By: #### 9 9914 #### [facility] [address] [facility] [place] [address], [facility] TROPONIN-Ion 08-07-2020 Troponin I.cardiac [Mass/Vol] 7.37 ng/mL Critically high 0.00-0.04 [facility] Comment on above: Order Comment: Yes: Add to Previous draw if able Result Comment: M-CT EVIOUS CRITICAL RESULT 42.94 REFERENCE RANGES: 0.00 - 0.04 ng/ml NORMAL 0.05 - 0.50 ng/ml INDETERMINATE > 0.50 ng/ml CONSISTENT WITH AN M.I. Performed By: #### 2 5508, 93004, 01952, 11324, 37257 #### [facility] [address] [facility] [place] [address], [facility] UFH HEPARIN ASSAYon 08-08-19 UNFRACTIONATED HEPARIN 0.48 IU/mL Normal 0.30-0.70 [facility] Comment on above: Result Comment: [place] roxaban and Apixaban will interfere with the anti Xa assay used to monitor UFH and LMWH. Performed By: #### 3 0477 ####[facility] CBC COMPLETE BLOOD COUNTon 08-06-2020 Erythrocyte distribution width (RBC) [Ratio] 13.2 % Normal 11.5-15.0 [facility] Comment on above: Order Comment: Yes: Add to Previous draw if able Performed By: #### 2 5508, 17875, 61796, 21248, 83363 #### [facility] [address] [place] [address], [facility] Hematocrit (Bld) [Volume fraction] 44.8 % Normal 39.0-50.0 [facility] Comment on above: Order Comment: Yes: Add to Previous draw if able Performed By: #### 2 5508, 17760, 28235, 14650, 95457 #### [facility] [address] [place] [address], [facility] Hemoglobin (Bld) [Mass/Vol] 14.8 g/dL Normal 13.0-17.0 [facility] Comment on above: Order Comment: Yes: Add to Previous draw if able Performed By: #### 2 5508, 87483, 06805, 20228, 00748 #### [facility] [address] [place] [address], [facility] MCH (RBC) [Entitic mass] 29.0 pg Normal 27.0-33.0 [facility] Comment on above: Order Comment: Yes: Add to Previous draw if able Performed By: #### 2 5508, 92080, 24120, 55525, 26058 #### [facility] [address] [place] [id number], [facility] MCHC (RBC) [Mass/Vol] 33.0 g/dL Normal 32.0-35.0 [facility] Comment on above: Order Comment: Yes: Add to Previous draw if able Performed By: #### 2 5508, 15476, 25910, 46072, 57064 #### [facility] [address] [place] [address], [facility] MCV (RBC) [Entitic vol] 87.8 fL Normal 82.0-98.0 [facility] Comment on above: Order Comment: Yes: Add to Previous draw if able Performed By: #### 2 5508, 32289, 27745, 04114, 49804 #### [facility] [address] [place] [address], [facility] Nucleated RBC/100 WBC (Bld) [Ratio] 0 % Normal 0-0 [facility] Comment on above: Order Comment: Yes: Add to Previous draw if able Performed By: #### 2 5508, 51494, 70814, 11968, 96445 #### [facility] [address] [place] [address], [facility] PLAT CNT 367 10*3/uL Normal 150-400 [facility] Comment on above: Order Comment: Yes: Add to Previous draw if able Performed By: #### 2 5508, 04518, 11089, 06864, 85308 #### [facility] [address] [place] [address], [facility] RBC (Bld) [#/Vol] 5.10 10*6/uL Normal 4.20-5.70 [facility] Comment on above: Order Comment: Yes: Add to Previous draw if able Performed By: #### 2 5508, 41528, 55227, 76658, 18306 #### [facility] [address] [place] [address], [facility] WBC (Bld) [#/Vol] 3.94 10*3/uL Low 4.00-10.60 [facility] Comment on above: Order Comment: Yes: Add to Previous draw if able Performed By: #### 2 5508, 84974, 16548, 61210, 47750 #### [facility] [address] [place] [address], [facility] COMP METABOLIC PANELon 08-06 Albumin [Mass/Vol] 3.0 g/dL Low 3.5-5.7 [facility] Comment on above: Order Comment: No: D o not add to previous drawLABS DRAWN IN SAME HAND PAUSED IV. PT IS TO REMAIN FACE DOWN ONSTOMACH PER RN SO THAT IS THE ONLY PLACE WE CAN DRAW FROM RIGHT NOW. Performed By: #### 2 5508, 69567, 27726, 31780, 16033 #### [facility] [address] [place] [address], [facility] ALKALINE PHOSPH 74 IU/L Normal 34-104 [facility] Comment on above: Order Comment: No: D o not add to previous drawLABS DRAWN IN SAME HAND PAUSED IV. PT IS TO REMAIN FACE DOWN ONSTOMACH PER RN SO THAT IS THE ONLY PLACE WE CAN DRAW FROM RIGHT NOW. Performed By: #### 2 5508, 15399, 49132, 36058, 34001 #### [facility] [address] [place] [address], [facility] ALT [Catalytic activity/Vol] 42 U/L Normal 7-52 [facility] Comment on above: Order Comment: No: D o not add to previous drawLABS DRAWN IN SAME HAND PAUSED IV. PT IS TO REMAIN FACE DOWN ONSTOMACH PER RN SO THAT IS THE ONLY PLACE WE CAN DRAW FROM RIGHT NOW. Performed By: #### 2 5508, 88278, 76504, 82296, 51839 #### [facility] [address] [place] [address], [facility] AST [Catalytic activity/Vol] 112 U/L High 13-39 [facility] Comment on above: Order Comment: No: D o not add to previous drawLABS DRAWN IN SAME HAND PAUSED IV. PT IS TO REMAIN FACE DOWN ONSTOMACH PER RN SO THAT IS THE ONLY PLACE WE CAN DRAW FROM RIGHT NOW. Performed By: #### 2 5508, 28417, 86047, 33827, 83707 #### [facility] [address] [place] [address], [facility] Bilirubin [Mass/Vol] 1.4 mg/dL High 0.3-1.0 [facility] Comment on above: Order Comment: No: D o not add to previous drawLABS DRAWN IN SAME HAND PAUSED IV. PT IS TO REMAIN FACE DOWN ONSTOMACH PER RN SO THAT IS THE ONLY PLACE WE CAN DRAW FROM RIGHT NOW. Performed By: #### 2 5508, 91641, 95074, 15724, 73449 #### [facility] [address] [place] [address], [facility] Calcium [Mass/Vol] 8.3 mg/dL Low 8.6-10.3 [facility] Comment on above: Order Comment: No: D o not add to previous drawLABS DRAWN IN SAME HAND PAUSED IV. PT IS TO REMAIN FACE DOWN ONSTOMACH PER RN SO THAT IS THE ONLY PLACE WE CAN DRAW FROM RIGHT NOW. Performed By: #### 2 5508, 38608, 21184, 90206, 90347 #### [facility] [address] [place] [address], [facility] Chloride [Moles/Vol] 105 mmol/L Normal 98-107 [facility] Comment on above: Order Comment: No: D o not add to previous drawLABS DRAWN IN SAME HAND PAUSED IV. PT IS TO REMAIN FACE DOWN ONSTOMACH PER RN SO THAT IS THE ONLY PLACE WE CAN DRAW FROM RIGHT NOW. Performed By: #### 2 5508, 51483, 25927, 83668, 56855 #### [facility] [address] [place] [address], [facility] CO2 [Moles/Vol] 20 mmol/L Low 21-31 [facility] Comment on above: Order Comment: No: D o not add to previous drawLABS DRAWN IN SAME HAND PAUSED IV. PT IS TO REMAIN FACE DOWN ONSTOMACH PER RN SO THAT IS THE ONLY PLACE WE CAN DRAW FROM RIGHT NOW. Performed By: #### 2 5508, 31847, 96265, 40509, 88298 #### [facility] [address] [place] [address], [place] Creatinine [Mass/Vol] 0.91 mg/dL Normal 0.70-1.30 [facility] Comment on above: Order Comment: No: D o not add to previous drawLABS DRAWN IN SAME HAND PAUSED IV. PT IS TO REMAIN FACE DOWN ONSTOMACH PER RN SO THAT IS THE ONLY PLACE WE CAN DRAW FROM RIGHT NOW. Performed By: #### 2 5508, 63400, 36760, 29874, 98800 #### [facility] [address] [place] [address], [place] GFR/1.73 sq M.predicted among blacks MDRD (S/P/Bld) [Vol rate/Area] mL/min/{1.73_m2} Normal >60 [facility] Comment on above: Order Comment: No: D o not add to previous drawLABS DRAWN IN SAME HAND PAUSED IV. PT IS TO REMAIN FACE DOWN ONSTOMACH PER RN SO THAT IS THE ONLY PLACE WE CAN DRAW FROM RIGHT NOW. Performed By: #### 2 5508, 18567, 50130, 44861, 97726 #### [facility] [address] [place] [address], [place] GFR/1.73 sq M.predicted among non-blacks MDRD (S/P/Bld) [Vol rate/Area] mL/min/{1.73_m2} Normal >60 [facility] Comment on above: Order Comment: No: D o not add to previous drawLABS DRAWN IN SAME HAND PAUSED IV. PT IS TO REMAIN FACE DOWN ONSTOMACH PER RN SO THAT IS THE ONLY PLACE WE CAN DRAW FROM RIGHT NOW. Performed By: #### 2 5508, 62310, 31813, 31377, 54288 #### [facility] [address] [place] [address], [place] Glucose [Mass/Vol] 153 mg/dL High 70-100 [facility] Comment on above: Order Comment: No: D o not add to previous drawLABS DRAWN IN SAME HAND PAUSED IV. PT IS TO REMAIN FACE DOWN ONSTOMACH PER RN SO THAT IS THE ONLY PLACE WE CAN DRAW FROM RIGHT NOW. Performed By: #### 2 5508, 37649, 45918, 64771, 58630 #### [facility] [address] [place] [address], [facility] Potassium [Moles/Vol] 4.7 mmol/L Normal 3.5-5.1 [facility] Comment on above: Order Comment: No: D o not add to previous drawLABS DRAWN IN SAME HAND PAUSED IV. PT IS TO REMAIN FACE DOWN ONSTOMACH PER RN SO THAT IS THE ONLY PLACE WE CAN DRAW FROM RIGHT NOW. Performed By: #### 2 5508, 34072, 29751, 14811, 50461 #### [facility] [address] [place] [address], [facility] Protein [Mass/Vol] 5.8 g/dL Low 6.0-8.3 [facility] Comment on above: Order Comment: No: D o not add to previous drawLABS DRAWN IN SAME HAND PAUSED IV. PT IS TO REMAIN FACE DOWN ONSTOMACH PER RN SO THAT IS THE ONLY PLACE WE CAN DRAW FROM RIGHT NOW. Performed By: #### 2 5508, 50169, 81551, 60748, 50411 #### [facility] [address] [place] [address], [facility] Sodium [Moles/Vol] 136 mmol/L Normal 136-145 [facility] Comment on above: Order Comment: No: D o not add to previous drawLABS DRAWN IN SAME HAND PAUSED IV. PT IS TO REMAIN FACE DOWN ONSTOMACH PER RN SO THAT IS THE ONLY PLACE WE CAN DRAW FROM RIGHT NOW. Performed By: #### 2 5508, 34362, 05518, 00977, 38001 #### [facility] [address] [place] [address], [facility] Urea nitrogen [Mass/Vol] 28 mg/dL High 7-25 [facility] Comment on above: Order Comment: No: D o not add to previous drawLABS DRAWN IN SAME HAND PAUSED IV. PT IS TO REMAIN FACE DOWN ONSTOMACH PER RN SO THAT IS THE ONLY PLACE WE CAN DRAW FROM RIGHT NOW. Performed By: #### 2 5508, 56404, 48757, 83947, 25484 #### [facility] [address] [place] [address], [facility] TACROLIMUSon 08-06-2020 Tacrolimus (Bld) [Mass/Vol] 9.2 ng/mL Normal 5.0-20.0 [facility] Comment on above: Order Comment: Unkno wnLABS DRAWN IN SAME HAND PAUSED IV. PT IS TO REMAIN FACE DOWN ONSTOMACH PER RN SO THAT IS THE ONLY PLACE WE CAN DRAW FROM RIGHT NOW. Result Comment: The [employer] Tacrolimus assay is a delayed one-step immunoassay for the quantitative determination of tacrolimus in human whole blood using the chemiluminescent microparticle immunoassay (CMIA) technology with flexible assay protocols, referred to as Chemiflex. Performed By: #### 2 5508, 90886, 34002, 69635, 81537 #### [facility] [address] [facility] [place] [address], [facility] TROPONIN-Ion 08-06-2020 Troponin I.cardiac [Mass/Vol] 42.94 ng/mL Critically high 0.00-0.04 [facility] Comment on above: Result Comment: M-CT EVIOUS CRITICAL RESULT REFERENCE RANGES: 0.00 - 0.04 ng/ml NORMAL 0.05 - 0.50 ng/ml INDETERMINATE > 0.50 ng/ml CONSISTENT WITH AN M.I. Performed By: #### 2 5508, 96407, 60169, 47408, 50492 #### [facility] [address] [facility] [place] [address], [facility] Troponin I.cardiac [Mass/Vol] 46.69 ng/mL Critically high 0.00-0.04 [facility] Comment on above: Order Comment: No: D o not add to previous draw Result Comment: M-CT EVIOUS CRITICAL RESULT REFERENCE RANGES: 0.00 - 0.04 ng/ml NORMAL 0.05 - 0.50 ng/ml INDETERMINATE > 0.50 ng/ml CONSISTENT WITH AN M.I. Performed By: #### 3 5200 ####[facility] UFH HEPARIN ASSAYon 08-07-19 UNFRACTIONATED HEPARIN 0.34 IU/mL Normal 0.30-0.70 [facility] Comment on above: Order Comment: No: D o not add to previous draw Result Comment: [place] roxaban and Apixaban will interfere with the anti Xa assay used to monitor UFH and LMWH. Performed By: #### 6 1405 #### [facility] [address] CHLORIDE URon 08-05-2020 Chloride [Moles/Vol] 26.0 mmol/L Normal [facility] Comment on above: Order Comment: Yes: Add to Previous draw if able Result Comment: Ther e are no established reference values for random urine specimens Performed By: #### 2 5508, 69765, 96911, 34665, 00002 #### [facility] [address] [facility] [address] COMP METABOLIC PANELon 08-05 Albumin [Mass/Vol] 3.0 g/dL Low 3.5-5.7 [facility] Comment on above: Order Comment: Yes: Add to Previous draw if able Performed By: #### 2 5508, 37253, 56449, 75884, 17544 #### [facility] [address] ALKALINE PHOSPH 78 IU/L Normal 34-104 [facility] Comment on above: Order Comment: Yes: Add to Previous draw if able Performed By: #### 2 5508, 56954, 27155, 66792, 89538 #### [facility] [address] [place] [address], [facility] ALT [Catalytic activity/Vol] 35 U/L Normal 7-52 [facility] Comment on above: Order Comment: Yes: Add to Previous draw if able Performed By: #### 2 5508, 64631, 26792, 56616, 52451 #### [facility] [address] [place] [address], [facility] AST [Catalytic activity/Vol] 54 U/L High 13-39 [facility] Comment on above: Order Comment: Yes: Add to Previous draw if able Performed By: #### 2 5508, 06779, 78208, 62279, 52336 #### [facility] [address] [place] [address], [place] Bilirubin [Mass/Vol] 1.0 mg/dL Normal 0.3-1.0 [facility] Comment on above: Order Comment: Yes: Add to Previous draw if able Performed By: #### 2 5508, 04614, 38772, 30655, 81938 #### [facility] [address] [place] [address], [place] Calcium [Mass/Vol] 8.2 mg/dL Low 8.6-10.3 [facility] Comment on above: Order Comment: Yes: Add to Previous draw if able Performed By: #### 2 5508, 09739, 35923, 69995, 13323 #### [facility] [address] [place] [address], [place] Chloride [Moles/Vol] 105 mmol/L Normal 98-107 [facility] Comment on above: Order Comment: Yes: Add to Previous draw if able Performed By: #### 2 5508, 05489, 58085, 83878, 70547 #### [facility] [address] [place] [address], [place] CO2 [Moles/Vol] 19 mmol/L Low 21-31 [facility] Comment on above: Order Comment: Yes: Add to Previous draw if able Performed By: #### 2 5508, 02795, 55392, 95340, 46282 #### [facility] [address] [place] [address], [place] Creatinine [Mass/Vol] 0.89 mg/dL Normal 0.70-1.30 [facility] Comment on above: Order Comment: Yes: Add to Previous draw if able Performed By: #### 2 5508, 80995, 38297, 56004, 85413 #### [facility] [address] [place] [address], [place] GFR/1.73 sq M.predicted among blacks MDRD (S/P/Bld) [Vol rate/Area] mL/min/{1.73_m2} Normal >60 [facility] Comment on above: Order Comment: Yes: Add to Previous draw if able Performed By: #### 2 5508, 90760, 39498, 95013, 10642 #### [facility] [address] [place] [address], [place] GFR/1.73 sq M.predicted among non-blacks MDRD (S/P/Bld) [Vol rate/Area] mL/min/{1.73_m2} Normal >60 [facility] Comment on above: Order Comment: Yes: Add to Previous draw if able Performed By: #### 2 5508, 60356, 83214, 68154, 70041 #### [facility] [address] [place] [address], [place] Glucose [Mass/Vol] 174 mg/dL High 70-100 [facility] Comment on above: Order Comment: Yes: Add to Previous draw if able Performed By: #### 2 5508, 13513, 10436, 95627, 17485 #### [facility] [address] [place] [address], [place] Potassium [Moles/Vol] 4.9 mmol/L Normal 3.5-5.1 [facility] Comment on above: Order Comment: Yes: Add to Previous draw if able Performed By: #### 2 5508, 39551, 21240, 32422, 51528 #### [facility] [address] [place] [address], [place] Protein [Mass/Vol] 5.5 g/dL Low 6.0-8.3 [facility] Comment on above: Order Comment: Yes: Add to Previous draw if able Performed By: #### 2 5508, 59994, 44565, 64788, 44896 #### [facility] [address] [place] [id number], [facility] Sodium [Moles/Vol] 136 mmol/L Normal 136-145 [facility] Comment on above: Order Comment: Yes: Add to Previous draw if able Performed By: #### 2 5508, 79619, 89627, 67962, 87280 #### [facility] [address] [place] [address], [facility] Urea nitrogen [Mass/Vol] 35 mg/dL High 7-25 [facility] Comment on above: Order Comment: Yes: Add to Previous draw if able Performed By: #### 2 5508, 00234, 22232, 24484, 36663 #### [facility] [address] [place] [address], [facility] LIVER BATTERYon 08-05-2020 Albumin [Mass/Vol] 3.2 g/dL Low 3.5-5.7 [facility] Comment on above: Performed By: #### 2 5508, 49222, 27902, 85246, 39671 #### [facility] [address] [place] [id number], [facility] ALKALINE PHOSPH 84 IU/L Normal 34-104 [facility] Comment on above: Performed By: #### 2 5508, 24523, 86325, 67946, 79440 #### [facility] [address] [place] [address], [place] ALT [Catalytic activity/Vol] 40 U/L Normal 7-52 [facility] Comment on above: Performed By: #### 2 5508, 39629, 20813, 46961, 87083 #### [facility] [address] [place] [address], [place] AST [Catalytic activity/Vol] 36 U/L Normal 13-39 [facility] Comment on above: Performed By: #### 2 5508, 15005, 74936, 13687, 62299 #### [facility] [address] [place] [address], [facility] Bilirubin [Mass/Vol] 0.9 mg/dL Normal 0.3-1.0 [facility] Comment on above: Performed By: #### 2 5508, 20095, 22790, 29431, 26544 #### [facility] [address] [place] [address], [facility] Bilirubin.direct [Mass/Vol] 0.3 mg/dL High 0.0-0.2 [facility] Comment on above: Performed By: #### 2 5508, 42289, 63790, 40394, 33044 #### [facility] [address] [place] [address], [facility] Protein [Mass/Vol] 5.9 g/dL Low 6.0-8.3 [facility] Comment on above: Performed By: #### 2 5508, 27412, 93422, 29323, 02522 #### [facility] [address] [facility] [place] [address], [facility] PORTABLE CHEST 1 VIEW 07-17 PORTABLE CHEST 1 VIEW [facility] Department of Radiology [address] [place] [id number] == Patient Name: VISHAL DUKE : 1960 Sex: M Age: Race: White Pt. Location: [id number] Patient Status: I Ordered Date: 08/05/2020 1:35:00 [...] the images and reports Electronically signed: Mauricio oKo. Transcribed by: [email or web address], User Resident: ELADIA CABRERA Electronically Signed by: MAURICIO KOO @ 08/05/2020 02:08 AM I personally read this/these film(s) with this resident Normal [facility] Comment on above: Order Comment: Yes: Add to Previous draw if able POTASSIUM URon 08-05-2020 Potassium [Moles/Vol] 61.0 mmol/L Normal [facility] Comment on above: Order Comment: Yes: Add to Previous draw if able Result Comment: Ther e are no established reference values for random urine specimens Performed By: #### 2 5508, 85129, 65617, 67142, 25868 #### [facility] [address] [place] [address], [facility] PROCALCITONINon 08-05-2020 PROCALCITONIN 0.54 ng/mL High 0.00-0.10 [facility] Comment on above: Order Comment: Yes: [...] and initial PCT<0.5ng/mL Performed By: #### 2 7868, 90423, 43114, 16356, 82290 #### [facility] [address] [place] [address], [facility] SODIUM URINE RANDOMon 2020 Sodium (U) [Moles/Vol] 54 mmol/L Normal [facility] Comment on above: Order Comment: Yes: Add to Previous draw if able Result Comment: Ther e are no established reference values for random urine specimens Performed By: #### 2 8728, 22385, 53214, 56701, 04145 #### [facility] [address] [place] [address], [facility] TACROLIMUSon 08-05-2020 Tacrolimus (Bld) [Mass/Vol] 11.2 ng/mL Normal 5.0-20.0 [facility] Comment on above: Order Comment: Unkno wn Result Comment: The [employer] Tacrolimus assay is a delayed one-step immunoassay for the quantitative determination of tacrolimus in human whole blood using the chemiluminescent microparticle immunoassay (CMIA) technology with flexible assay protocols, referred to as Chemiflex. Performed By: #### 2 5508, 83103, 48724, 94036, 92789 #### [facility] [address] [place] [address], [facility] TROPONIN-Ion 08-05-2020 Troponin I.cardiac [Mass/Vol] 39.61 ng/mL Critically high 0.00-0.04 [facility] Comment on above: Order Comment: Yes: Add to Previous draw if able Result Comment: M-CT EVIOUS CRITICAL RESULT REFERENCE RANGES: 0.00 - 0.04 ng/ml NORMAL 0.05 - 0.50 ng/ml INDETERMINATE > 0.50 ng/ml CONSISTENT WITH AN M.I. Performed By: #### 2 5508, 57599, 90153, 21531, 43281 #### [facility] [address] [place] [address], [facility] Troponin I.cardiac [Mass/Vol] 36.67 ng/mL Critically high 0.00-0.04 [facility] Comment on above: Order Comment: No: D o not add to previous draw Result Comment: M-CT EVIOUS CRITICAL RESULT REFERENCE RANGES: 0.00 - 0.04 ng/ml NORMAL 0.05 - 0.50 ng/ml INDETERMINATE > 0.50 ng/ml CONSISTENT WITH AN M.I. Performed By: #### 2 5508, 09489, 43540, 93700, 07906 #### [facility] [address] [place] [address], [facility] Troponin I.cardiac [Mass/Vol] 2.03 ng/mL Critically high 0.00-0.04 [facility] Comment on above: Order Comment: Yes: Add to Previous draw if able Result Comment: M-TR OPONIN INITIAL CRITICAL HIGH; RESPUN AND RETESTED M-CRITICAL RESULT(S) REVIEWED, CALLED TO AND READ BACK BY ROSA M SANCRAINT RN AT 0902 REFERENCE RANGES: 0.00 - 0.04 ng/ml NORMAL 0.05 - 0.50 ng/ml INDETERMINATE > 0.50 ng/ml CONSISTENT WITH AN M.I. Performed By: #### 2 5508, 42469, 69300, 83166, 93756 #### [facility] [address] Troponin I.cardiac [Mass/Vol] 0.03 ng/mL Normal 0.00-0.04 [facility] Comment on above: Order Comment: Yes: Add to Previous draw if able Result Comment: REFE RENCE RANGES: 0.00 - 0.04 ng/ml NORMAL 0.05 - 0.50 ng/ml INDETERMINATE > 0.50 ng/ml CONSISTENT WITH AN M.I. Performed By: #### 2 5508, 89870, 46621, 55956, 78697 #### [facility] [address] UFH HEPARIN ASSAYon 08-06-19 UNFRACTIONATED HEPARIN 0.37 IU/mL Normal 0.30-0.70 [facility] Comment on above: Result Comment: [place] roxaban and Apixaban will interfere with the anti Xa assay used to monitor UFH and LMWH. Performed By: #### 3 0477 ####[facility] UNFRACTIONATED HEPARIN 0.17 IU/mL Low 0.30-0.70 [facility] Comment on above: Result Comment: [place] roxaban and Apixaban will interfere with the anti Xa assay used to monitor UFH and LMWH. Performed By: #### 6 1405 #### [facility] [address] [place] [address], [facility] COMP METABOLIC PANELon 08-04 Albumin [Mass/Vol] 3.1 g/dL Low 3.5-5.7 [facility] Comment on above: Order Comment: Yes: Add to Previous draw if able Performed By: #### 2 4218, 14325, 44962, 47046, 29343 #### [facility] [address] [place] [address], [facility] ALKALINE PHOSPH 86 IU/L Normal 34-104 [facility] Comment on above: Order Comment: Yes: Add to Previous draw if able Performed By: #### 2 5508, 60481, 65737, 00888, 84749 #### [facility] [address] [place] [address], [place] ALT [Catalytic activity/Vol] 47 U/L Normal 7-52 [facility] Comment on above: Order Comment: Yes: Add to Previous draw if able Performed By: #### 2 5508, 30684, 04483, 97273, 03681 #### [facility] [address] [place] [address], [place] AST [Catalytic activity/Vol] 45 U/L High 13-39 [facility] Comment on above: Order Comment: Yes: Add to Previous draw if able Performed By: #### 2 5508, 03695, 13198, 53198, 69330 #### [facility] [address] [place] [address], [place] Bilirubin [Mass/Vol] 0.5 mg/dL Normal 0.3-1.0 [facility] Comment on above: Order Comment: Yes: Add to Previous draw if able Performed By: #### 2 5508, 00020, 97290, 45880, 18952 #### [facility] [address] [place] [address], [place] Calcium [Mass/Vol] 8.4 mg/dL Low 8.6-10.3 [facility] Comment on above: Order Comment: Yes: Add to Previous draw if able Performed By: #### 2 5508, 12011, 41114, 98509, 45075 #### [facility] [address] [place] [address], [place] Chloride [Moles/Vol] 102 mmol/L Normal 98-107 [facility] Comment on above: Order Comment: Yes: Add to Previous draw if able Performed By: #### 2 5508, 42333, 17774, 48202, 34568 #### [facility] [address] [place] [address], [place] CO2 [Moles/Vol] 24 mmol/L Normal 21-31 [facility] Comment on above: Order Comment: Yes: Add to Previous draw if able Performed By: #### 2 5508, 08104, 16120, 40206, 95999 #### [facility] [address] [place] [address], [place] Creatinine [Mass/Vol] 1.04 mg/dL Normal 0.70-1.30 [facility] Comment on above: Order Comment: Yes: Add to Previous draw if able Performed By: #### 2 5508, 74285, 59288, 64485, 14001 #### [facility] [address] [place] [address], [place] GFR/1.73 sq M.predicted among blacks MDRD (S/P/Bld) [Vol rate/Area] mL/min/{1.73_m2} Normal >60 [facility] Comment on above: Order Comment: Yes: Add to Previous draw if able Performed By: #### 2 5508, 58793, 07869, 57031, 78643 #### [facility] [address] [place] [address], [place] GFR/1.73 sq M.predicted among non-blacks MDRD (S/P/Bld) [Vol rate/Area] mL/min/{1.73_m2} Normal >60 [facility] Comment on above: Order Comment: Yes: Add to Previous draw if able Performed By: #### 2 5508, 80727, 59688, 01662, 13504 #### [facility] [address] [place] [address], [place] Glucose [Mass/Vol] 196 mg/dL High 70-100 [facility] Comment on above: Order Comment: Yes: Add to Previous draw if able Performed By: #### 2 5508, 86107, 81632, 15448, 02830 #### [facility] [address] [place] [address], [facility] Potassium [Moles/Vol] 4.6 mmol/L Normal 3.5-5.1 [facility] Comment on above: Order Comment: Yes: Add to Previous draw if able Performed By: #### 2 5508, 19988, 64451, 97555, 70666 #### [facility] [address] [place] [address], [facility] Protein [Mass/Vol] 5.8 g/dL Low 6.0-8.3 [facility] Comment on above: Order Comment: Yes: Add to Previous draw if able Performed By: #### 2 5508, 13039, 66195, 82065, 78235 #### [facility] [address] [place] [address], [facility] Sodium [Moles/Vol] 135 mmol/L Low 136-145 [facility] Comment on above: Order Comment: Yes: Add to Previous draw if able Performed By: #### 2 5508, 15457, 42806, 46782, 28276 #### [facility] [address] [place] [address], [facility] Urea nitrogen [Mass/Vol] 38 mg/dL High 7-25 [facility] Comment on above: Order Comment: Yes: Add to Previous draw if able Performed By: #### 2 5508, 66243, 76802, 93704, 07395 #### [facility] [address] [place] [address], [place] CPKon 08-04-2020 CK [Catalytic activity/Vol] 80 U/L Normal 30-223 [facility] Comment on above: Performed By: #### 2 5508, 40874, 56323, 46834, 35364 #### [facility] [address] [place] [address], [place] LDH BLOODon 08-04-2020 LDH 569 Units/L High 140-271 [facility] Comment on above: Performed By: #### 2 5508, 83846, 10280, 50843, 49097 #### [facility] [address] [place] [address], [facility] MAGNESIUM BLOODon 08-04-2020 Magnesium [Mass/Vol] 2.3 mg/dL Normal 1.9-2.7 [facility] Comment on above: Performed By: #### 2 5508, 09665, 64605, 30410, 51631 #### [facility] [address] [facility] [address] TACROLIMUSon 08-04-2020 Tacrolimus (Bld) [Mass/Vol] 17.4 ng/mL Normal 5.0-20.0 [facility] Comment on above: Order Comment: Yes: Add to Previous draw if able Result Comment: The [employer] Tacrolimus assay is a delayed one-step immunoassay for the quantitative determination of tacrolimus in human whole blood using the chemiluminescent microparticle immunoassay (CMIA) technology with flexible assay protocols, referred to as Chemiflex. Performed By: #### 2 5508, 72239, 96305, 72991, 78406 #### [facility] [address] [facility] [address] TROPONIN-Ion 08-04-2020 Troponin I.cardiac [Mass/Vol] 0.01 ng/mL Normal 0.00-0.04 [facility] Comment on above: Result Comment: REFE RENCE RANGES: 0.00 - 0.04 ng/ml NORMAL 0.05 - 0.50 ng/ml INDETERMINATE > 0.50 ng/ml CONSISTENT WITH AN M.I. Performed By: #### 2 5508, 23661, 75292, 11301, 26283 #### [facility] [address] [facility] *SARS-CoV-2 COVID-19on 08-03 SARS-CoV-2 (COVID-19) RNA ADELINE+probe Ql (Unsp spec) Detected Critically abnormal Not Detected [facility] Comment on above: Result Comment: Call ed Lara Reid on 08-03 at 1020. Performed By: #### 2 5508, 11528, 30630, 93057, 37943 #### [facility] [address] [place] [address], [place] BASIC METABOLIC PANELon 07-16 Calcium [Mass/Vol] 8.4 mg/dL Low 8.6-10.3 [facility] Comment on above: Order Comment: No: D o not add to previous draw Pt in bath room askme to come back Performed By: #### 3 5200 #### [facility] [address] [place] [address], [facility] Chloride [Moles/Vol] 97 mmol/L Low 98-107 [facility] Comment on above: Order Comment: No: D o not add to previous draw Pt in bath room askme to come back Performed By: #### 3 5200 #### [facility] [address] [place] [address], [place] CO2 [Moles/Vol] 22 mmol/L Normal 21-31 [facility] Comment on above: Order Comment: No: D o not add to previous draw Pt in bath room askme to come back Performed By: #### 3 5200 #### [facility] [address] [place] [address], [place] Creatinine [Mass/Vol] 0.90 mg/dL Normal 0.70-1.30 [facility] Comment on above: Order Comment: No: D o not add to previous draw Pt in bath room askme to come back Performed By: #### 3 5200 #### [facility] [address] [place] [address], [place] GFR/1.73 sq M.predicted among blacks MDRD (S/P/Bld) [Vol rate/Area] mL/min/{1.73_m2} Normal >60 [facility] Comment on above: Order Comment: No: D o not add to previous draw Pt in bath room askme to come back Performed By: #### 3 5200 #### [facility] [address] [place] [address], [facility] GFR/1.73 sq M.predicted among non-blacks MDRD (S/P/Bld) [Vol rate/Area] mL/min/{1.73_m2} Normal >60 [facility] Comment on above: Order Comment: No: D o not add to previous draw Pt in bath room askme to come back Performed By: #### 3 5200 #### [facility] [address] [place] [address], [facility] Glucose [Mass/Vol] 167 mg/dL High 70-100 [facility] Comment on above: Order Comment: No: D o not add to previous draw Pt in bath room askme to come back Performed By: #### 3 5200 #### [facility] [address] [place] [address], [facility] Potassium [Moles/Vol] 4.4 mmol/L Normal 3.5-5.1 [facility] Comment on above: Order Comment: No: D o not add to previous draw Pt in bath room askme to come back Performed By: #### 3 5200 #### [facility] [address] [place] [address], [place] Sodium [Moles/Vol] 131 mmol/L Low 136-145 [facility] Comment on above: Order Comment: No: D o not add to previous draw Pt in bath room askme to come back Performed By: #### 3 5200 #### [facility] [address] [place] [address], [place] Urea nitrogen [Mass/Vol] 22 mg/dL Normal 7-25 [facility] Comment on above: Order Comment: No: D o not add to previous draw Pt in bath room askme to come back Performed By: #### 3 5200 #### [facility] [address] CBC W/DIFFon 08-03-2020 ABS IMM GRANS 0.1 10*3/uL Normal 0.0-0.2 [facility] Comment on above: Order Comment: No: D o not add to previous draw Performed By: #### 6 1405 #### [facility] [address] [facility] [place] [address], [facility] ABS NEUTROPHILS 4.8 10*3/uL Normal 1.6-7.6 [facility] Comment on above: Order Comment: No: D o not add to previous draw Performed By: #### 6 1405 #### [facility] [address] [facility] [place] [address], [facility] Basophils (Bld) [#/Vol] 0.0 10*3/uL Normal 0.0-0.2 [facility] Comment on above: Order Comment: No: D o not add to previous draw Performed By: #### 6 1405 #### [facility] [address] [place] [address], [facility] Basophils/100 WBC (Bld) 0.4 % Normal 0.0-1.0 [facility] Comment on above: Order Comment: No: D o not add to previous draw Performed By: #### 6 1405 #### [facility] [address] [facility] [place] [address], [facility] Eosinophils (Bld) [#/Vol] 0.0 10*3/uL Normal 0.0-0.5 [facility] Comment on above: Order Comment: No: D o not add to previous draw Performed By: #### 6 1405 #### [facility] [address] [facility] [place] [id number], [facility] Eosinophils/100 WBC (Bld) 0.0 % Normal 0.0-6.0 [facility] Comment on above: Order Comment: No: D o not add to previous draw Performed By: #### 6 1405 #### [facility] [address] [facility] [address] Erythrocyte distribution width (RBC) [Ratio] 13.6 % Normal 11.5-15.0 [facility] Comment on above: Order Comment: No: D o not add to previous draw Performed By: #### 6 1405 #### [facility] [address] [place] [id number], [facility] Hematocrit (Bld) [Volume fraction] 45.6 % Normal 39.0-50.0 [facility] Comment on above: Order Comment: No: D o not add to previous draw Performed By: #### 6 1405 #### [facility] [address] [facility] [place] [address], [facility] Hemoglobin (Bld) [Mass/Vol] 15.9 g/dL Normal 13.0-17.0 [facility] Comment on above: Order Comment: No: D o not add to previous draw Performed By: #### 6 1405 #### [facility] [address] [place] [address], [facility] IMMATURE GRANS 0.9 % Normal 0.0-1.0 [facility] Comment on above: Order Comment: No: D o not add to previous draw Performed By: #### 6 1405 #### [facility] [address] [place] [address], [facility] Lymphocytes (Bld) [#/Vol] 0.4 10*3/uL Low 1.2-4.0 [facility] Comment on above: Order Comment: No: D o not add to previous draw Performed By: #### 6 1405 #### [facility] [address] [place] [address], [facility] Lymphocytes/100 WBC (Bld) 7.1 % Low 20.0-45.0 [facility] Comment on above: Order Comment: No: D o not add to previous draw Performed By: #### 6 1405 #### [facility] [address] [place] [address], [facility] MCH (RBC) [Entitic mass] 29.5 pg Normal 27.0-33.0 [facility] Comment on above: Order Comment: No: D o not add to previous draw Performed By: #### 6 1405 #### [facility] [address] [place] [id number], [facility] MCHC (RBC) [Mass/Vol] 34.9 g/dL Normal 32.0-35.0 [facility] Comment on above: Order Comment: No: D o not add to previous draw Performed By: #### 6 1405 #### [facility] [address] [place] [id number], [facility] MCV (RBC) [Entitic vol] 84.6 fL Normal 82.0-98.0 [facility] Comment on above: Order Comment: No: D o not add to previous draw Performed By: #### 6 1405 #### [facility] [address] [place] [id number], [facility] Monocytes (Bld) [#/Vol] 0.2 10*3/uL Normal 0.1-1.0 [facility] Comment on above: Order Comment: No: D o not add to previous draw Performed By: #### 6 1405 #### [facility] [address] [place] [id number], [facility] MONOS 4.2 % Low 5.0-12.0 [facility] Comment on above: Order Comment: No: D o not add to previous draw Performed By: #### 6 1405 #### [facility] [address] [place] [id number], [facility] Neutrophils/100 WBC (Bld) 87.4 % High 40.0-72.0 [facility] Comment on above: Order Comment: No: D o not add to previous draw Performed By: #### 6 1405 #### [facility] [address] [place] [id number], [facility] Nucleated RBC/100 WBC (Bld) [Ratio] 0 % Normal 0-0 [facility] Comment on above: Order Comment: No: D o not add to previous draw Performed By: #### 6 1405 #### [facility] [address] [place] [place] [address], [facility] PLAT CNT 286 10*3/uL Normal 150-400 [facility] Comment on above: Order Comment: No: D o not add to previous draw Performed By: #### 6 1405 #### [facility] [address] [facility] [place] [address], [facility] RBC (Bld) [#/Vol] 5.39 10*6/uL Normal 4.20-5.70 [facility] Comment on above: Order Comment: No: D o not add to previous draw Performed By: #### 6 1405 #### [facility] [address] [place] [address], [facility] WBC (Bld) [#/Vol] 5.47 10*3/uL Normal 4.00-10.60 [facility] Comment on above: Order Comment: No: D o not add to previous draw Performed By: #### 6 1405 #### [facility] [address] CPKon 08-03-2020 CK [Catalytic activity/Vol] 168 U/L Normal 30-223 [facility] Comment on above: Order Comment: No: D o not add to previous draw Pt in bath room askme to come back Performed By: #### 3 5200 #### [facility] [address] D DIMER TESTon 08-03-2020 D-DIMER TEST 5.09 mcg/mL FEU High 0.27-0.49 [facility] Comment on above: Order Comment: No: [...] AND CONFIRMED Performed By: #### 5 3629 ####[facility] FERRITINon 08-03-2020 Ferritin [Mass/Vol] 1079 ng/mL High 24-336 [facility] Comment on above: Order Comment: No: D o not add to previous draw Pt in bath room askme to come back Performed By: #### 3 5200 #### [facility] [address] [facility] LDH BLOODon 08-03-2020 LDH 623 Units/L High 140-271 [facility] Comment on above: Order Comment: No: D o not add to previous draw Pt in bath room askme to come back Performed By: #### 3 5200 #### [facility] [address] [facility] [place] [address], [facility] LIVER BATTERYon 08-03-2020 Albumin [Mass/Vol] 3.6 g/dL Normal 3.5-5.7 [facility] Comment on above: Order Comment: Yes: Add to Previous draw if able Performed By: #### 2 5508, 76441, 27758, 63943, 38430 #### [facility] [address] [facility]. [address] ALKALINE PHOSPH 91 IU/L Normal 34-104 [facility] Comment on above: Order Comment: Yes: Add to Previous draw if able Performed By: #### 2 5508, 37946, 62839, 93385, 15532 #### [facility] [address] [facility] [place] [address], [facility] ALT [Catalytic activity/Vol] 34 U/L Normal 7-52 [facility] Comment on above: Order Comment: Yes: Add to Previous draw if able Performed By: #### 2 5508, 33125, 78673, 48222, 07887 #### [facility] [address] [place] [address], [facility] AST [Catalytic activity/Vol] 40 U/L High 13-39 [facility] Comment on above: Order Comment: Yes: Add to Previous draw if able Performed By: #### 2 5508, 41642, 81870, 90637, 46230 #### [facility] [address] [place] [address], [place] Bilirubin [Mass/Vol] 0.7 mg/dL Normal 0.3-1.0 [facility] Comment on above: Order Comment: Yes: Add to Previous draw if able Performed By: #### 2 5508, 46058, 15517, 46306, 44600 #### [facility] [address] [place] [address], [facility] Bilirubin.direct [Mass/Vol] 0.1 mg/dL Normal 0.0-0.2 [facility] Comment on above: Order Comment: Yes: Add to Previous draw if able Performed By: #### 2 5508, 97886, 58872, 53006, 61235 #### [facility] [address] [place] [address], [facility] Protein [Mass/Vol] 6.3 g/dL Normal 6.0-8.3 [facility] Comment on above: Order Comment: Yes: Add to Previous draw if able Performed By: #### 2 5508, 55837, 21986, 81248, 94389 #### [facility] [address] [place] [address], [place] MAGNESIUM BLOODon 08-03-2020 Magnesium [Mass/Vol] 2.3 mg/dL Normal 1.9-2.7 [facility] Comment on above: Order Comment: No: D o not add to previous draw Pt in bath room askme to come back Performed By: #### 3 5200 #### [facility] [address] [place] [address], [place] PHOSPHORUS BLOODon Phosphate [Mass/Vol] 3.6 mg/dL Normal 2.5-5.0 [facility] Comment on above: Order Comment: No: D o not add to previous draw Pt in bath room askme to come back Performed By: #### 3 5200 #### [address] PORTABLE CHEST 1 VIEWon 07-16 PORTABLE CHEST 1 VIEW [facility] Department of Radiology [address] [place] [id number] == Patient Name: VISHAL DUKE : 1960 Sex: M Age: Race: White Pt. Location: [id number] Patient Status: I Ordered Date: 08/03/2020 8:00:00 [...] pneumonia. Electronically signed: Dariela Vincent. Transcribed by: [email or web address], User Resident: Electronically Signed by: DARIELA VINCENT @ 08/03/2020 07:52 AM Normal [facility] Comment on above: Order Comment: No: D o not add to previous draw CV'D BY IMM LAB AT 1240 PROCALCITONINon 08-03-2020 PROCALCITONIN 0.31 ng/mL High 0.00-0.10 [facility] Comment on above: Order Comment: No: [...] and initial PCT<0.5ng/mL Performed By: #### 2 1948, 72573, 27612, 45041, 10625 #### [facility] [address] [place] [address], [facility] TACROLIMUSon 08-03-2020 Tacrolimus (Bld) [Mass/Vol] 24.9 ng/mL High 5.0-20.0 [facility] Comment on above: Order Comment: Yes: Add to Previous draw if able Result Comment: The [employer] Tacrolimus assay is a delayed one-step immunoassay for the quantitative determination of tacrolimus in human whole blood using the chemiluminescent microparticle immunoassay (CMIA) technology with flexible assay protocols, referred to as Chemiflex. Performed By: #### 2 5508, 77246, 08438, 36870, 69905 #### [facility] [address] [facility]. [address] TROPONIN-Ion 08-03-2020 Troponin I.cardiac [Mass/Vol] 0.01 ng/mL Normal 0.00-0.04 [facility] Comment on above: Order Comment: No: D o not add to previous draw Pt in bath room askme to come back Result Comment: REFE RENCE RANGES: 0.00 - 0.04 ng/ml NORMAL 0.05 - 0.50 ng/ml INDETERMINATE > 0.50 ng/ml CONSISTENT WITH AN M.I. Performed By: #### 3 5200 #### [facility] [address] [facility] [address] URINALYSIS REFLEXon 08-04-19 21 Appearance (U) CLEAR Normal CLEAR [facility] Comment on above: Order Comment: No: D o not add to previous draw CV'D BY IMM LAB AT 1240 Performed By: #### 6 1405 #### [facility] [address] [facility] [place] [address], [facility] Bilirubin Ql (U) Negative Normal NEGATIVE [facility] Comment on above: Order Comment: No: D o not add to previous draw CV'D BY IMM LAB AT 1240 Performed By: #### 6 1405 #### [facility] [address] [facility] [place] [address], [facility] Color (U) YELLOW Normal YELLOW [facility] Comment on above: Order Comment: No: D o not add to previous draw CV'D BY IMM LAB AT 1240 Performed By: #### 6 1405 #### [facility] [address] [place] [address], [place] EPIS NONE SEEN Normal FEW,OCC,NONE SEEN [facility] Comment on above: Order Comment: No: D o not add to previous draw CV'D BY IMM LAB AT 1240 Performed By: #### 6 1405 #### [facility] [address] [place] [address], [place] Glucose Ql (U) Negative Normal NEGATIVE [facility] Comment on above: Order Comment: No: D o not add to previous draw CV'D BY IMM LAB AT 1240 Performed By: #### 6 1405 #### [facility] [address] [place] [address], [place] Hemoglobin Ql (U) TRACE, RESULTS CHECKED Abnormal NEGATI VE [facility] Comment on above: Order Comment: No: D o not add to previous draw CV'D BY IMM LAB AT 1240 Performed By: #### 6 1405 #### [facility] [address] [place] [address], [place] KETONE Negative Normal NEGATIVE [facility] Comment on above: Order Comment: No: D o not add to previous draw CV'D BY IMM LAB AT 1240 Performed By: #### 6 1405 #### [facility] [address] [place] [address], [place] LE[place] MARIA A Negative Normal NEGATIVE [facility] Comment on above: Order Comment: No: D o not add to previous draw CV'D BY IMM LAB AT 1240 Performed By: #### 6 1405 #### [facility] [address] [place] [address], [place] Nitrite Ql (U) Negative Normal NEGATIVE [facility] Comment on above: Order Comment: No: D o not add to previous draw CV'D BY IMM LAB AT 1240 Performed By: #### 6 1405 #### [facility] [address] [place] [address], [place] pH (U) 6.0 [pH] Normal 5.0-8.0 [facility] Comment on above: Order Comment: No: D o not add to previous draw CV'D BY IMM LAB AT 1240 Performed By: #### 6 1405 #### [facility] [address] [place] [address], [facility] Protein Ql (U) Negative Normal NEGATIVE [facility] Comment on above: Order Comment: No: D o not add to previous draw CV'D BY IMM LAB AT 1240 Performed By: #### 6 1405 #### [facility] [address] [place] [address], [facility] RBC 3-5 Abnormal NONE SEEN [facility] Comment on above: Order Comment: No: D o not add to previous draw CV'D BY IMM LAB AT [facility] Performed By: #### 6 1405 #### [facility] [address] [place] [address], [facility] SPEC GRAV 1.017 Normal 1.015-1.020 [facility] Comment on above: Order Comment: No: D o not add to previous draw CV'D BY IMM LAB AT 1240 Performed By: #### 6 1405 #### [facility] [address] [place] [address], [facility] WBC UA 0-2 Abnormal NONE SEEN The [facility] Comment on above: Order Comment: No: D o not add to previous draw CV'D BY IMM LAB AT [facility] Performed By: #### 6 1405 #### [facility] [address] [facility] [address], [facility] Vital Signs Date Time Vital Sign Value Performing Clinician Faci lity 01-17-2022 11:53-0400 Blood Pressure Location Reji BROWER [facility] 01-17-2022 11:53-0400 Diastolic blood pressure 81 mm[Hg] Reji BROWER [facility] 01-17-2022 11:53-0400 Heart rate 63 /min Reji BROWER [facility] 01-17-2022 11:53-0400 Respiratory rate 18 /min Reji BROWER [facility] 01-17-2022 11:53-0400 Systolic blood pressure 129 mm[Hg] Reji BROWER [facility] 04-23-2021 17:40-0500 Diastolic blood pressure 70 mm[Hg] Rosa M Gonzales Work Phone: [facility] DO Work Phone: 04-23-2021 17:40-0500 Systolic blood pressure 138 mm[Hg] Rosa M Gonzales Work Phone: [facility] DO Work Phone: 04-23-2021 15:22-0500 Body height 180.34 cm Rosa M Gonzales Work Phone: [facility] DO Work Phone: 04-23-2021 15:22-0500 Body mass index (BMI) [Ratio] 29.57 kg/m2 Rosa M Gonzales Work Phone: [facility] DO Work Phone: 04-23-2021 15:22-0500 Body surface area Derived from formula 2.16 m2 Rosa M Gonzales Work Phone: [facility] 250 DO Work Phone: 04-23-2021 15:22-0500 Body weight 96.16 kg Rosa M Gonzales Work Phone: [facility] 250 DO Work Phone: 04-23-2021 15:22-0500 Diastolic blood pressure 77 mm[Hg] Rosa M Gonzales Work Phone: [facility] DO Work Phone: 04-23-2021 15:22-0500 Heart rate 61 /min Rosa M Farrell Janet Work Phone: [facility] DO Work Phone: 04-23-2021 15:22-0500 Systolic blood pressure 142 mm[Hg] Rosa M Farrell Janet Work Phone: [facility] DO Work Phone: Encounters Encounter Date Encounter Type Care Provider Facility Start: 01-29-2024 ambulatory Reji La ty:CASS Doran Start: 07-27-2023 End: 07-27-2023 ambulatory ROSA M GONZALES Not Available Start: 06-05-2023 End: 06-05-2023 ambulatory AB [facility] Start: 05-29-2023 Clinisync Result Encounter Generic External Data Provider [facility] Unsolicited Start: 05-29-2023 Clinisync Result Encounter Generic External Data Provider [facility] External [facility] Unsolicited Start: 05-18-2023 End: 05-18-2023 ambulatory [facility] Start: 05-01-2023 End: 05-01-2023 ambulatory ALICIA FISHMAN Not Available Start: 04-26-2023 End: 04-26-2023 ambulatory TEAGAN VILLANUEVA [facility] Start: 03-28-2023 ambulatory PETEY Beck [facility] Start: 02-09-2023 End: 02-09-2023 ambulatory [facility] Start: 02-02-2023 ambulatory Xochilt Graham Facility:[facility] Start: 01-24-2023 End: 01-25-2023 Evaluation and management of inpatient [facility] Start: 01-06-2023 End: 01-07-[facility] Start: 12-22-2022 End: 12-22-2022 ambulatory [facility] Start: 12-05-2022 End: 12-05-2022 [facility] Start: 11-15-2022 End: 11-16-2022 ambulatory SHAUN ALMNAZARORI [facility] Start: 10-26-2022 End: 10-26-2022 ambulatory TEAGAN VILLANUEVA [facility] Start: 10-24-2022 End: 10-24-2022 ambulatory MADIE [facility] Start: 09-27-2022 End: 09-27-2022 ambulatory PETEY REDDING [facility] Start: 09-06-2022 End: 09-07-2022 ambulatory [facility] Start: 09-01-2022 End: 09-02-2022 ambulatory SHARLA [facility] Start: 08-19-2022 End: 08-20-2022 ambulatory [facility] Start: 08-18-2022 End: 08-19-[address] DOCTOR MEYER Facility:[facility] Start: 07-29-2022 End: 07-29-2022 ambulatory KELVIN [facility] Start: 07-19-2022 End: 07-20-[address] DOCTOR MEYER Facility:[facility] Start: 06-16-2022 End: 06-16-2022 ambulatory BOBBY [facility] Start: 06-01-2022 End: 06-02-[address] [...] encounter procedure Reji BROWER [facility] Start: 09-28-2021 End: 09-29-[address] FEDERICO CHESTER Facility: Start: 05-15-2021 End: 06-07-2021 ambulatory ROSA M GONZALES Facility:[facility] Start: 04-23-2021 Office outpatient visit 25 minutes Rosa M Gonzales Work Phone: [facility] DO Work Phone: Start: 12-02-2020 End: 12-04-2020 Evaluation and management of inpatient YONAS HERRERA Facility:[facility] Start: 12-01-2020 End: 12-01-2020 Emergency department patient visit REFERRED SELF Facility:[facility] Start: 10-29-2020 End: 10-30-2020 ambulatory ROSA M GONZALES Facility:[facility] Start: 08-02-2020 End: 08-19-2020 Evaluation and management of inpatient JUAN FERREIRA Facility:[facility] Procedures Date Procedure Procedure Detail Performing [...] R GAS INTO RESP TRACT, VIA OPENING YOJNAA N HORANI Start: 12-30-2019 History of renal transplant History of kidney transplant Generic Provider Start: 01-01-2018 Transplant of kidney Epifanio BROWER Comment on above: Pt has three kidneys Start: 02-01-2013 Colonoscopy Generic Pr ovider Bilateral vasectomy Reji BROWER Cardiac catheterization Anne gloria Farrell Janet Work Phone: Coronary artery bypa ss graft Rosa M Farrell Janet Work Phone: Coronary artery bypa ss grafts [...] pacemak er pulse generator Rosa M Jami Gonzales Work Phone: Placement of stent i n cardiac conduit Reji BROWER Total colonoscopy Rosa M Jami Gonzales Work Phone: Transplant of kidney Kane jami Thorntonhman Work Phone: Plan of Treatment Date Care Activity Detail Author Start: 11-09-2023 Medicare Annual Well ness (AWV) Medicare Annual Wellness (AWV) [facility] Start: 10-30-2023 End: 10-30-2023 Patient encounter procedure 10/30/2023 10:05 AM EDT Office Visit [facility] [address] [place] [address] Alicia Fishman MD [address] [place] [address] [facility] Start: 02-01-2023 Screening for malign ant neoplasm of colon [facility] Start: 1960 Screening for malign ant neoplasm of colon [facility] Immunizations Immunization Date Immunization Notes Care Provider Fa cility 01-13-2023 influenza, injectabl e, quadrivalent, preservative free Generic Provider [facility] 01-13-2022 influenza, injectabl e, quadrivalent, preservative free Generic Provider [facility] 12-30-2021 Moderna Bivalent Booster Vaccination Generic Provider [facility] 12-30-2021 Moderna SARS-CoV-2 50mcg/0.5mL Booster Generic Provider [facility] 12-30-2021 SARS-CoV-2, Unspecified Generic [facility] 02-01-2021 Seasonal, quadrivale nt, recombinant, injectable influenza vaccine, preservative free Rosa M Gonzales Work Phone: [place] [address] DO Work Phone: 01-06-2021 Moderna COVID-19 Vaccine 100 MCG/0.5ML Intramuscular Suspension Rosa M [facility] DO Work Phone: 07-10-2020 Moderna COVID-19 Vaccine 100 MCG/0.5ML Intramuscular Suspension Rosa M Gonzales [facility]: [facility] Work Phone: 06-12-2020 Moderna COVID-19 Vaccine 100 MCG/0.5ML Intramuscular Suspension Rosa M Gonzales Work Phone: [place] [address] DO Work Phone: 01-27-2020 influenza, seasonal, injectable Rosa M Gonzales Work Phone: [place] [address] DO Work Phone: 01-22-2020 Seasonal trivalent influenza vaccine, adjuvanted, preservative free Generic Provider [facility] 01-16-2020 influenza virus vaccine, unspecified formulation Rosa M Gonzales [facility] Work Phone: 01-16-2020 influenza, seasonal, injectable Generic Provider [facility] 02-05-2019 Seasonal, quadrivale nt, recombinant, injectable influenza vaccine, preservative free Rosa M Jami Janet Work Phone: [facility] [employer] DO Work Phone: 05-11-2018 influenza, injectabl e, quadrivalent, preservative free Rosa M R Janet Work Phone: [facility] Work Phone: 02-16-2018 influenza, injectabl e, quadrivalent, preservative free Rosa M R Janet Work Phone: [facility] Work Phone: 06-08-2017 influenza, injectabl e, quadrivalent, preservative free Rosa M R Janet Work Phone: [facility] [employer] DO Work Phone: 12-16-2016 influenza, injectabl e, quadrivalent, contains preservative Rosa M Jami Gonzales Work Phone: [facility] Work Phone: 01-28-2015 influenza, seasonal, injectable Rosa M Jami Janet Work Phone: [facility] [facility] DO Work Phone: 04-27-2012 influenza virus vaccine, whole virus Rosa M Farrell Janet Work Phone: [facility] Work Phone: Payers Date Payer Category Payer Medicare [id number] 2022 Private Health Insurance [facility] [id number] 2022-Present [address] [address] [place] [address] [id number] 2016 Medicare [id number] 1960 Unknown [id number] 2.16.840.1.126410.3.579. 2.647 1960 Unknown [id number] 2.16.840.1.901227.3.579. 2.647 1960 Unknown [id number] 2.16.840.1.328679.3.579. 2.647 1960 Unknown [id number] 2.16.840.1.178496.3.579. 2.647 1960 Unknown [id number] 2.16.840.1.808620.3.579. 2.647 1960 Unknown [id number] 2.16.840.1.776401.3.579. 2.593 1960 Unknown [id number] 2.16.840.1.647943.3.579. 2.593 1960 Unknown [id number] 2.16.840.1.580392.3.579. 2.593 1960 Unknown [id number] 2.16.840.1.891054.3.579. 2.593 1960 Unknown [id number] 2.16.840.1.965396.3.579. 2.593 1960 Unknown [id number] 2.16.840.1.630473.3.579. 2.593 1960 Unknown [id number] 2.16.840.1.493752.3.579. 2.593 1960 Unknown [id number] 2.16.840.1.402080.3.579. 2.593 1960 Unknown [id number] 2.16.840.1.269049.3.579. 2.593 1960 Unknown [id number] 2.16.840.1.068086.3.579. 2.727 1960 Unknown [id number] 2.16.840.1.339168.3.579. 2.1259 1960 Unknown [id number] 2.16.840.1.406173.3.579. 2.1259 1959 Medicare [id number] 1959 Private Health Insurance [id number] Unknown Social History Date Type Detail Facility Start: 11-01-2022 End: 05-01-2023 No alcohol use No alcohol use [facility] Comment on above: 1-2 cups of coffee d aily.; Quit in 2008; Start: 01-01-2020 End: 11-06-2022 Tobacco smoking status Ex-smoker (finding) [facility] Start: 11-01-2022 End: 02-17-2023 Sex Assigned At Male [facility] End: 04-17-2007 History of tobacco use Current [...] to any clubs or organizations such as denominational groups, unions, fraternal or athletic groups, or [...] got money to buy more. Never true [facility] Start: 02-16-2023 Alcohol Comment Caffeine intak e : 1-2 cups per day [facility] Start: 1960 Sex Assigned At Not on file [facility] Start: 06-29-2022 Gender identity Identifies as male gender (finding) [facility] Functional Status Date Assessment Result Facility 01-17-2022 Functional Status N/A [facility] Clinical Notes 08-20-2020 to 06-05-2023 Note Date & Type Note Facility 06-05-2023 Note [facility] Card[facility] Clinic Note Chief Complaint: Patient [...] 28.70 kg/m??? Physica (more content not included)... [facility] 05-18-2023 Note 05/18/23 I called the [...] Pt verbalized understanding of the dose change. [facility] 05-18-2023 Note 05/18/23 DD Renal transplant on (08/15/2017) by Dr. Marquez. CMV +/-. 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 Vishal Duke is [...] Review Audit Reviewed by Cierra Danielson MA (Tier Lift Operator) on 05/18/23 at 1014 Medication Order Taking? Sig Documenting Provider Last Dose Status albuterol (ProAir HFA) 90 mcg/actuation inhaler [id number] Yes Inhale 2 puffs every 4 (four) hours if needed for wheezing or shortness of breath. Laney Busch MD Taking Active aspirin 81 mg EC tablet [id number] Yes Take 81 mg by mouth in the morning. Makayla Gates MD Taking Active atorvastatin (Lipitor) 80 mg tablet [id number] Yes Take 1 tablet (80 mg) by mouth at bedtime. Federico Chester MD Taking Active clopidogrel (Plavix) 75 mg tablet [id number] Yes Take 1 tablet (75 mg) by mouth in the morning. Federioc Chester MD Taking Active empagliflozin (Jardiance) 10 mg [id number] Yes Take 1 tablet (10 mg) by mouth once daily as directed. Federico Chester MD Taking Active esomeprazole (NexIUM) [address] capsule [id number] Yes Take 1 capsule (40 mg) by mouth before breakfast. Do not open capsule. Federico Chester MD Taking Active famotidine (Pepcid) 20 mg tablet [id number] No Take 20 mg by mouth in the morning and at bedtime. Makayla Gates MD Not Taking Flag for Review isosorbide mononitrate ER (Imdur) 60 mg 24 hr tablet [id number] Yes Take 1 tablet (60 mg) by mouth in the morning. Do not crush or chew. Federico Chester MD Taking Active lisinopril 5 mg tablet [id number] Yes Take 1 tablet (5 mg) by mouth in the morning. Fdeerico Chester MD Taking Active magnesium oxide (Mag-Ox) 400 mg tablet [id number] Yes 400 mg in the morning. Take 3 tablets Makayla Gates MD Taking Differently Active methocarbamol (Robaxin) 500 mg tablet [id number] Take 1 tablet (500 mg) by mouth [...] Active mycophenolate (Myfortic) 180 mg EC tablet [id number] Yes Take 3 tablets (540 mg) by mouth in the morning and at bedtime. Petey Redding NP Taking Active nitroglycerin (Nitrostat) 0.4 mg SL tablet [id number] Yes Place 0.4 mg under the tongue every 5 (five) minutes if needed for chest pain. Historical Provider, Taking Active predniSONE (Deltasone) 5 mg tablet [id number] Yes Take 5 mg by mouth in the morning. Historical Provider, Taking Differently Active ranolazine (Ranexa) 500 mg 12 hr tablet Yes Take 1 tablet (500 mg) by mouth in the morning and at bedtime. Do not crush, chew, or split. Federico Chester MD Taking Active tacrolimus (Prograf) 0.5 mg capsule [id number] Yes Take 1 capsule (0.5 mg) by mouth in the morning. TDD 1.5mg Patient taking differently: Take 0.5 mg by mouth once daily in the evening. TDD (more content not included)... [facility] 03-29-2023 Note Patient's tac level of 9.[address] Basurto and he just wants to watch it no medication change. Maria G Mayberry, TATO [facility] 03-28-2023 Note 03/28/23 Chief Complaint Patient presents with Kidney Follow-up Patient have no concerns PCP: Rosa M Gonzales MD Txp Referring: Preferred Pharmacy: [id number] - [place], [place] - [address] [place] [address] Subjective Visit Vitals BP 111/61 Pulse 60 Wt 90.3 kg (199 lb) BMI 27.75 kg/m??? Smoking Status Former BSA 2.13 m??? No Known Allergies Medication Documentation Review Audit Reviewed by Tim Foy MA (Tier Lift Operator) on 03/28/23 at 0912 Medication Order Taking? Sig Documenting Provider Last Dose Status albuterol (ProAir HFA) 90 mcg/actuation inhaler [id number] Yes Inhale 2 puffs every 4 (four) hours if needed for wheezing or shortness of breath. Laney Busch MD Taking Active aspirin 81 mg EC tablet [id number] Yes Take 81 mg by mouth in the morning. Historical ProviderMD Taking Active atorvastatin (Lipitor) 80 mg tablet [id number] Yes Take 1 tablet (80 mg) by mouth at bedtime. Federico Chester MD Taking Active clopidogrel (Plavix) 75 mg tablet [id number] Yes Take 1 tablet (75 mg) by mouth in the morning. Federico Chester MD Taking Active empagliflozin (Jardiance) 10 mg [id number] Yes Take 1 tablet (10 mg) by mouth once daily as directed. Federico Chester MD Taking Active esomeprazole (NexIUM) [address] capsule [id number] Yes Take 1 capsule (40 mg) by mouth before breakfast. Do not open capsule. Federico Chester MD Taking Active famotidine (Pepcid) 20 mg tablet [id number] Yes Take 20 mg by mouth in the morning and at bedtime. Historical MD Yajaira Taking Active isosorbide mononitrate ER (Imdur) 60 mg 24 hr tablet [id number] Yes Take 1 tablet (60 mg) by mouth in the morning. Do not crush or chew. Federico Chester MD Taking Active lisinopril 5 mg tablet [id number] Yes Take 1 tablet (5 mg) by mouth in the morning. Federico Chester MD Taking Active magnesium oxide (Mag-Ox) 400 mg tablet [id number] Yes 400 mg in the morning. Historical ProviderMD Taking Active methocarbamol (Robaxin) 500 mg tablet [id number] Take 1 tablet (500 mg) by mouth if needed in the morning, at noon, and at bedtime for muscle spasms for up to 5 days. Patient not taking: Reported on 02/09/2023 Amelia Olson MD 01/30/23 2195 metoprolol succinate XL (Toprol-XL) 200 mg 24 hr tablet Yes Take 1 tablet (200 mg) by mouth once daily as directed. Do not crush or chew. Federico Chester MD Taking Active mycophenolate (Myfortic) 180 mg EC tablet [id number] Yes Take 3 tablets (540 mg) by mouth in the morning and at bedtime. Bobby Maldonado MD Taking Active nitroglycerin (Nitrostat) 0.4 mg SL tablet [id number] Yes Place 0.4 mg under the tongue every 5 (five) minutes if needed for chest pain. Historical Provider, Taking Active predniSONE (Deltasone) 5 mg tablet [id number] Yes Take 5 mg by mouth every other day. Historical Provider, Taking Active ranolazine (Ranexa) 500 mg 12 hr tablet Yes Take 1 tablet (500 mg) by mouth in the morning and at bedtime. Do not crush, chew, or split. Federico Chester MD Taking Active tacrolimus (Prograf) 0.5 mg capsule [id number] Yes tacrolimus 0.5 mg capsule, immediate-release TAKE 1 CAPSULE BY MOUTH TWICE DAILY Phoebe Culver MD Taking Active Immunization History Administered Date(s) Administered Unspecified Sars-Cov-2 Vaccination 12/30/2021 Patient Active Problem List Diagnosis Aftercare following organ transplant Kidney replaced by transplant Electrolyte abnormality Immunosuppression ([facility]) Polycystic kidney disease, autosomal dominant Elevated hemoglobin ([facility]) Other abnormality of red blood cells Post-COVID chronic dyspnea Chronic systolic congestive heart failure ([facility]) Active rickets Acute bronchitis Acute non-ST elevation myocardial infarction (NSTEMI) ([facility]) Age-related nuclear cataract of left eye 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 Coronary artery disease involving [place] coronary artery of [place] heart with unstable angina pectoris ([facility]) Gastroesophageal reflux disease Hypertension End-stage renal disease ([facility]) Coronary atherosclerosis Hyperkalemia History of kidney [...] artery for coronary artery disease Ventricular tachycardia (CMS/HCC (more content not included)... [facility] 03-08-2023 Note New standing lab ord er placed in intraoffice mail today to go out> [facility] 03-08-2023 Note New standing lab ord er placed in today's outgoing mail. Following call from clinic MERCEDES Lion that pt is @ [facility] for lab draws, faxed to [phone] new order and requested [facility] fax all lab results to [facility] as last monthly lab results were received November 2022. Pt notified order sent & mailed and to contact [facility] monthly when labs are completed to confirm receipt or have testing @ [facility]. He acknowledged. Encouraged to FU next week with [facility]. [facility] 03-01-2023 Note Patient called sweetie calvo his repeat tac level still 3.6 in his My Chart, we do not have results yet.. Patient will increase by 0.5 mg in the morning, now on 1 mg in am and 0.5 mg in afternoon of prograf. He will repeat level in one week. [facility] 02-21-2023 Note Per franchesca at Dr serrano an office, incisional culture came back positive pseudomonis, suseptable to Cipro 500 mg BID x [address] Maldonado notified. [facility] 02-17-2023 Note Patient called to re port that he finished antibiotic for incision infection and was told looking better and they did take sample to send for culture. [facility] 02-09-2023 Note Patient states he wi ll repeat his tac level as not a true 12 hour trough, he did not take yesterday yoselin dose. [facility] 02-09-2023 Note 02/08/23 DD Renal transplant on (08/15/2017) by Dr. Marquez. CMV +/-. Patient has recent history of an MO and had Pacer/Defib Placed. Patient here for follow up Nephrectomy Patient states he is feeling good with a 21 pound weight loss since bilat [place] kidney's removed. He states that he currently [...] Status albuterol (ProAir HFA) 90 mcg/actuation inhaler [id number] Yes Inhale 2 puffs every 4 (four) hours if needed for wheezing or shortness of breath. Laney Busch MD 01/24/2023529 Active aspirin 81 mg EC tablet [id number] Yes Take 81 mg by mouth in the morning. Historical ProviderMD 01/24/2023529 Active atorvastatin (Lipitor) 80 mg tablet [id number] Yes Take 1 tablet (80 mg) by mouth at bedtime. Federico Chester MD 01/23/2023 2100 Active clopidogrel (Plavix) 75 mg tablet [id number] Yes Take 1 tablet (75 mg) by mouth in the morning. Federico Chester MD Past Week Active empagliflozin (Jardiance) 10 mg [id number] Yes Take 1 tablet (10 mg) by mouth once daily as directed. Federico Chester MD 01/23/2023 0800 Active esomeprazole (NexIUM) [address] capsule [id number] Yes Take 1 capsule (40 mg) by mouth before breakfast. Do not open capsule. Federico Chester MD 01/24/2023529 Active famotidine (Pepcid) 20 mg tablet [id number] Yes Take 20 mg by mouth in the morning and at bedtime. Historical Provider, Past Month 529 Active isosorbide mononitrate ER (Imdur) 60 mg 24 hr tablet [id number] Yes Take 1 tablet (60 mg) by mouth in the morning. Do not crush or chew. Federico Chester MD 01/24/2023529 Active lisinopril 5 mg tablet [id number] Yes Take 1 tablet (5 mg) by mouth in the morning. Federico Chester MD 01/24/2023799 Active magnesium oxide (Mag-Ox) 400 mg tablet [id number] Yes 400 mg in the morning. Historical ProviderMD 01/24/2023529 Active metoprolol succinate XL (Toprol-XL) 200 mg 24 hr tablet [id number] Yes Take 1 tablet (200 mg) by mouth once daily as directed. Do not crush or chew. Federico Chester MD 01/24/2023529 Active mycophenolate (Myfortic) 180 mg EC tablet [id number] Yes Take 3 tablets (540 mg) by mouth in the morning and at bedtime. Bobby Maldonado MD 01/24/2023529 Active nitroglycerin (Nitrostat) 0.4 mg SL tablet [id number] Yes Place 0.4 mg under the tongue every 5 (five) minutes if needed for chest pain. Historical ProviderMD Past Month Active predniSONE (Deltasone) 5 mg tablet [id number] Yes Take 5 mg by mouth every other day. Makayla ProviderMD 01/24/2023529 Active ranolazine (Ranexa) 500 mg 12 hr tablet [id number] Yes Take 1 tablet (500 mg) by mouth in the morning and at bedtime. Do not crush, chew, or split. Federico Chester MD 01/24/2023529 Active tacrolimus (Prograf) 0.5 mg capsule [id number] Yes tacrolimus 0.5 mg capsule, immediate-release TAKE [...] bronchitis Acute non-ST elevation myocardial infarction (NSTEMI) ([facility] [facility] Age-related nuclear cataract of left eye 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 Coronary artery disease involving [place] coronary artery of [place] heart with unstable angina pectoris (CMS/HCC) Gastroesophageal [...] artery for cor (more content not included)... [facility] 01-25-2023 Note 01/25/23 1022 Admission Assessment [...] Yes Would you like use our pharmacy [employer] to fill your new medications at the time of Discharge? Yes Does the patient have a dependency case manager assigned to them through their insurance? No [...] activate MyChart? Yes Home once medically ready [facility] 01-25-2023 Note Attestation signed by Bobby [...] be an additional personal documentation from me. [facility] Department of Urology DAILY PROGRESS NOTE [...] appear stable. The adrenal glands appear stable. Unga kidneys are diffusely replaced by cystic change. [...] is unchanged. Impress (more content not included)... [facility] 01-25-2023 Note Patient: Vishal felix Procedure Summary Date: 01/24/23 Room / Location: [facility] OPERATING ROOM 13 / [facility] Operating Room Anesthesia Start: 755 Anesthesia Stop: 1736 Procedure: NEPHRECTOMY, ROBOT-ASSISTED (Bilateral: Abdomen) Diagnosis: PKD (polycystic kidney disease) (PKD (polycystic kidney disease) [Q61.3]) Surgeons: Bobby Maldonado MD Responsible Provider: Shaan Dawson MD Anesthesia Type: general ASA Status: 4 Anesthesia Type: general Vitals Value Taken Time BP 118/81 01/24/232023 Temp 36.1 ???C (97 ???F) 01/24/231721 Pulse 87 01/24/232036 Resp 24 01/24/232036 SpO2 93 % 01/24/232036 Vitals shown include unvalidated device data. Anesthesia Post Evaluation Patient location during evaluation: PACU Level of consciousness: awake Pain management: adequate Airway patency: patent Cardiovascular status: acceptable Respiratory status: acceptable Hydration status: acceptable Patient is hemodynamically stable and is able to be discharged from PACU per anesthesia protocol. No notable events documented. [facility] 01-24-2023 Note Patient: Vishal felix Procedure Summary Date: 01/24/23 Room / Location: [facility] OPERATING ROOM 13 / [facility] Operating Room Anesthesia Start: 0756 Anesthesia [...] and follow verbal commands throughout transport process [facility] 01-24-2023 Note Airway Date/Time: 01/24/2023 8:14 AM Urgency: elective Airway not difficult General Information and Staff Patient location during procedure: OR Resident/FLAT DRIER/CAA: Nicola Roblero MD Performed: resident/FLAT DRIER/CAA Learner assisted: ASHLI Rowland Indications and Patient [...] 22 Number of attempts at approach: 1 [facility] 01-24-2023 Note Arterial Line: Date/Time: 01/24/2023 [...] complications. Additional notes: Under GA Staffing Performed: resident/FLAT DRIER/CAA Resident/FLAT DRIER: Nicola Roblero MD Performed by: Nicola Roblero MD Authorized by: Shaan Dawson MD [facility] 01-24-2023 Note Patient: Vishal felix Procedure Information Date/Time: 01/24/23729 Procedure: NEPHRECTOMY, ROBOT-ASSISTED possible bilateral (Right) Location: [facility] OPERATING ROOM 13 / [facility] Operating Room Surgeons: Bobby Maldonado MD [...] failure (CMS/HCC) (+) Coronary artery disease involving [place] coronary artery of [place] heart with unstable angina pectoris (CMS/HCC) (+) [...] Plan discussed with attending. Additional Equipment Requests [facility] 01-12-[address] Maldonado , now need to do phlebotomy for recent of hematocrit 50.8 and HGB of 16.4. Dr Maldonado waits until hematocrit is 55 and hgb closer to 17. Patient will be having nephrectomy 01/24/23 and will repeat labs then. [facility] 12-22-2022 Note 12/22/22 PCP: Rosa M Gonzales MD Txp Referring: Preferred Pharmacy: [facility] - [place], [place] - [address] [place] [address] Subjective Visit Vitals BP 136/77 Pulse 60 Wt 95.6 kg (210 lb 11.2 oz) BMI 30.23 kg/m??? Smoking Status Former BSA 2.17 m??? No Known Allergies Medication Documentation Review Audit Reviewed by Tim Foy MA (Tier Lift Operator) on 12/22/22 at 0857 Medication Order Taking? Sig Documenting Provider Last Dose Status albuterol (ProAir HFA) 90 mcg/actuation inhaler [id number] Yes Inhale 2 puffs every 4 (four) hours if needed for wheezing or shortness of breath. Laney Busch MD Taking Active aspirin 81 mg EC tablet [id number] Yes Take 81 mg by mouth in the morning. Makayla Gates MD Taking Active atorvastatin (Lipitor) 80 mg tablet [id number] Yes Take 1 tablet (80 mg) by mouth at bedtime. Federico Chester MD Taking Active clopidogrel (Plavix) 75 mg tablet [id number] Yes Take 1 tablet (75 mg) by mouth in the morning. Federico Chester MD Taking Active empagliflozin (Jardiance) 10 mg [id number] Yes Take 1 tablet (10 mg) by mouth once daily as directed. Federico Chester MD Taking Active esomeprazole (NexIUM) [address] capsule [id number] Yes Take 1 capsule (40 mg) by mouth before breakfast. Do not open capsule. Federico Chester MD Taking Active famotidine (Pepcid) 20 mg tablet [id number] Yes Take 20 mg by mouth in the morning and at bedtime. Makayla Gates MD Taking Active isosorbide mononitrate ER (Imdur) 30 mg 24 hr tablet [id number] Yes Take 1 tablet (30 mg) by mouth once daily as directed. Do not crush or chew. Federico Chester MD Taking Active isosorbide mononitrate ER (Imdur) 60 mg 24 hr tablet Yes Take 1 tablet (60 mg) by mouth in the morning. Do not crush or chew. Federico Chester MD Taking Active lisinopril 5 mg tablet [id number] Yes Take 1 tablet (5 mg) by mouth in the morning. Federico Chester MD Taking Active magnesium oxide (Mag-Ox) 400 mg tablet [id number] Yes 400 mg in the morning. Makayla Gates MD Taking Active metoprolol succinate XL (Toprol-XL) 200 mg 24 hr tablet Yes Take 1 tablet (200 mg) by mouth once daily as directed. Do not crush or chew. Federico Chester MD Taking Active mycophenolate (Myfortic) 180 mg EC tablet [id number] Yes Take 540 mg by mouth in the morning and at bedtime. Historical Provider, Taking Active nitroglycerin (Nitrostat) 0.4 mg SL tablet [id number] Yes Place 0.4 mg under the tongue every 5 (five) minutes if needed for chest pain. Historical Provider, Taking Active predniSONE (Deltasone) 5 mg tablet [id number] Yes Take 5 mg by mouth every other day. Historical Provider, Taking Active ranolazine (Ranexa) 500 mg 12 hr tablet [id number] Yes Take 1 tablet (500 mg) by mouth in the morning and at bedtime. Do not crush, chew, or split. Federico Chester MD Taking Active tacrolimus (Prograf) 0.5 mg capsule [id number] Yes tacrolimus 0.5 mg capsule, immediate-release TAKE 1 CAPSULE BY MOUTH TWICE DAILY Historical ProviderMD Taking Active There is no immunization history for the selected administration types on file for this patient. Patient Active Problem List Diagnosis Aftercare following organ transplant Kidney replaced by transplant Electrolyte abnormality Immunosuppression ([facility]) Polycystic kidney disease, autosomal dominant Elevated hemoglobin ([facility]) Other abnormality of red blood cells Post-COVID chronic dyspnea Chronic systolic congestive heart failure ([facility]) Active rickets Acute bronchitis Acute non-ST elevation myocardial infarction (NSTEMI) ([facility]) Age-related nuclear cataract of left eye 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 Coronary artery disease involving [place] coronary artery of [place] heart with unstable angina pectoris ([facility]) Gastroesophageal reflux disease Essential hypertension End-stage renal disease ([facility]) Coronary atherosclerosis Hyperkalemia History of kidney disease Gouty arthropathy Hypervitaminosis A Increased infection risk status post immunosuppressive therapy Lower urinary tract symptoms due to benign prostatic hyperplasia Male hypogonadism Hyperlipidemia Microscopic hematuria Mixed hyperlipidemia Myocardial infarction ([facility]) Neuropathy Nocturia Renal failure Pyelonephritis Pseudophakia PCO (posterior capsular opacification), right Stage 4 chronic kidney disease ([facility]/HCC) Stage 3 chronic kidney disease ([facility]) Upper respiratory infection Status post insertion of drug-eluting stent into left anterior descending (LAD) artery for coronary artery disease Ventricular tachycardia (CMS/HCC) History of kidney transplant History of renal transplant PKD (polycystic kidney disease) Family History Problem Relation Name Age of Onset A (more content not included)... [facility] 12-05-2022 Note [facility] Cardiology Clinic Note Chief Complaint: Patient here for 6 mo follow up CAD, CKD, ischemic congestive cardiomyopathy, and hypertension. Had echo in August 2022 at [facility]. Device was checked last month. HPI: [...] urologist wishes to remove one of his [place] kidneys as it is pressing up on the stomach and into the chest. Update 12/05/2022: Doing about the same His urologist has decided against removal of his [place] kidney until it causes significant symptoms Mr. [...] Rfl: predniSONE (Deltas (more content not included)... [facility] 10-24-2022 Note Attestation signed by Shaun [...] Age: 61 y.o. : 1960 Account No.: [id number] Chief complaint: Follow up visit. Last visit [...] the morning and at bedtime. Historical ProviderMD famotidine (Pepcid) 20 mg tablet in the [...] for chest p (more content not included)... [facility] 09-27-2022 Note 09/27/22 Chief Complaint Patient presents with Kidney Follow-up No major concerns today PCP: Rosa M Gonzales MD Txp Referring: Preferred Pharmacy: [facility] - [place] - [address] [place] [address] Subjective Visit Vitals BP 121/76 (BP Location: Right arm, Patient Position: Sitting, BP Cuff Size: Adult) Pulse 60 Temp 36.5 ???C (97.7 ???F) (Oral) Wt 96 kg (211 lb 11.2 oz) BMI 30.38 kg/m??? Smoking Status Former BSA 2.18 m??? No Known Allergies Medication Documentation Review Audit Reviewed by Derek Mccoy (Tier Lift Operator) on 09/27/22 at 0859 Medication Order Taking? Sig Documenting Provider Last Dose Status aspirin 81 mg EC tablet [id number] No Take 81 mg by mouth in the morning. Makayla Gates MD Not Taking Active aspirin 81 mg EC tablet [id number] Yes in the morning. Makayla Gates MD Taking Active atorvastatin (Lipitor) 80 mg tablet [id number] Yes Take 80 mg by mouth at bedtime. Makayla Gtaes MD Taking Active clopidogrel (Plavix) 75 mg tablet [id number] Yes Take 75 mg by mouth in the morning. Makayla Gates MD Taking Active dapagliflozin (Farxiga) 10 mg [id number] Farxiga 10 mg tablet TAKE 1 TABLET BY MOUTH EVERY DAY Federico Chester MD Active empagliflozin (Jardiance) 10 mg [id number] Yes Take 1 tablet (10 mg) by mouth in the morning. Federico Chester MD Taking Active esomeprazole (NexIUM) [address] capsule [id number] Yes Take 40 mg by mouth before breakfast. Do not open capsule. Makayla Gates MD Taking Active famotidine (Pepcid) 20 mg tablet [id number] Yes Take 20 mg by mouth in the morning and at bedtime. Makayla Gates MD Taking Active famotidine (Pepcid) 20 mg tablet [id number] No in the morning. Makayla Gates MD Not Taking Active Discontinued 09/21/22 1548 isosorbide mononitrate ER (Imdur) 30 mg 24 hr tablet [id number] Yes isosorbide mononitrate ER 30 mg tablet,extended release 24 hr TAKE 1 TABLET BY MOUTH EVERY DAY Historical MD Yajaira Taking Active isosorbide mononitrate ER (Imdur) 30 mg 24 hr tablet [id number] No Take 1 tablet (30 mg) by mouth once daily as directed. Do not crush or chew. Patient not taking: Reported on 09/27/2022 Federico Chester MD Not Taking Active lisinopril 5 mg tablet [id number] No Take 5 mg by mouth in the morning. Makayla Gates MD Not Taking Active lisinopril 5 mg tablet [id number] Yes lisinopril 5 mg tablet TAKE 1 TABLET BY MOUTH ONCE DAILY Historical MD Yajaira Taking Active magnesium oxide (Mag-Ox) 400 mg tablet [id number] Yes 400 mg in the morning. Makayla Gates MD Taking Active metoprolol succinate XL (Toprol-XL) 200 mg 24 hr tablet [id number] Yes Take 200 mg by mouth in the morning. Do not crush or chew. Makayla Gates MD Taking Active metoprolol succinate XL (Toprol-XL) 200 mg 24 hr tablet [id number] No metoprolol succinate ER 200 mg tablet,extended release 24 hr TAKE 1 TABLET BY MOUTH DAILY Makayla Gates MD Not Taking Active metoprolol tartrate (Lopressor) 100 mg tablet [id number] No 1 (one) time each day at the same time. Makayla Gates MD Not Taking Active metoprolol tartrate (Lopressor) 50 mg tablet [id number] No Take by mouth. Makayla Gates MD Not Taking Active mycophenolate (Myfortic) 180 mg EC tablet [id number] Yes Take 540 mg by mouth in the morning and at bedtime. Makayla Gates MD Taking Active nitroglycerin (Nitrostat) 0.4 mg SL tablet [id number] Yes Place 0.4 mg under the tongue every 5 (five) minutes if needed for chest pain. Makayla Gates MD Taking Active predniSONE (Deltasone) 5 mg tablet [id number] Yes Take 5 mg by mouth every other day. Makayla Gates MD Taking Differently Active predniSONE (Deltasone) 5 mg tablet [id number] No Take 5 mg by mouth. Makayla Gates MD Not Taking Active Discontinued 09/21/22 1552 ranolazine (Ranexa) 500 mg 12 hr tablet [id number] Yes Take 1 tablet (500 mg) by mouth in the morning and at bedtime. Do not crush, chew, or split. Federico Chester MD Taking Active tacrolimus (Prograf) 0.5 mg capsule [id number] Yes tacrolimus 0.5 mg capsule, immediate-release TAKE 1 CAPSULE BY MOUTH TWICE DAILY Historical Provider, Taking Active tacrolimus (Prograf) 1 mg capsule [id number] Yes Take 0.5 mg by mouth in [...] artery disease F (more content not included)... [facility] 09-01-2022 Note [facility] His DLCO [...] predicted. Just wanted to report the difference. [facility] 08-18-2022 Note Reviewed 08/18/22 Hgb 17 and Hematocrit 52.7 by phone with Sb FRANK and per his phone order, phlebotomy x 1 unit PRBC and schedule RV with Petey Gonzalez SHIP SUPERINTENDENT to change ARB to ANNE during RV. Pt notified to stay well hydrated and requested phlebotomy @ [facility] and pt given RV appointment 09/27/22 and verbalizes understanding for RV. Notified Bodia (Liza) of new order- scheduled @2pm tomorrow and pt agrees. Other labs pending receipt from [facility] today. [facility] 07-29-2022 Note Attestation signed by Georgie Carson MD at 08/02/2022 4:19 PM I personally saw and examined the patient on the same date of service as resident/fellow Kelvin Mishra MD. I discussed the findings and therapeutic plan with the resident/fellow Kelvin Mishra MD. I agree with the documentation, except for any edits/updates below. Attending Attestation: Georgie Carson MD Attending Physician, Pulmonary, Critical Care and Sleep Medicine [facility] 08/02/22 Pulmonary Clinic Visit Note Patient: Vishal Duke Age: 61 y.o. : 1960 Account No.: [id number] HPI 60-year-old gentleman With history of CABG, [...] Former smoker: Disability, used to work in [employer] No family hx of asthma, Past Medical [...] drugs. Family History (more content not included)... [facility] 07-05-[address] [facility] 06-16-2022 Note Subjective Patient ID: Vishal [...] +/-. Patient has recent history of an MO and had Pacer/Defib Placed. Clinic visit for follow up transplant Current IS: tacrolimus 0.5 mg twice (more content not included)... [facility] 06-16-2022 Note 06/16/[address] Maldonado Nurse note history of renal transplant - DD Renal transplant on (08/15/2017) by Dr. Marquez. CMV +/-. Patient has recent history of an MO and had Pacer/Defib Placed. Clinic visit for [...] as ordered - Follow up: 6 months [facility] 05-30-2022 Note CARDIAC STRESS TEST Requesting [...] and relayed in a separate dictation. [facility] 01-17-2022 Hospital Discharge instructions Patient Education 01/17/2022 [...] urethra. Follow these instructions at home: Take [id number] and prescription medicines only as told by [...] 04/03/2006 Document Revised: 02/26/2019 Document Reviewed: 05/08/2017 [employer] Patient Education 2020 [employer] Follow Up Care 11/09/2021 10:07:55 With:LEONARDA FRANK, Reji Farrell, URL Address: [facility] [address] [place] [address]- [phone] When:01/18/2024 Comments:PSA [facility] 01-17-2022 Evaluation + Plan note Diagnostic Tests PendingPSA Total 01/17/22 [facility] 06-01-2021 Note PROCEDURE: [employer] VCT 64, 5.0 mm slice axial images [...] signed by Anjum Remy on 06/01/2021 [address] [facility] Administrative Assistant 12-05-2020 Note MR#: [id number] I [facility] Pt. Name: Vishal Duke Admitted: 12/02/2020 [...] Herrera MD Date Trans: 12/05/2020 05:37 A/patrizia [id number] cc: Rosa M Gonzales M.D. [address] [place] [id number] [facility] 12-02-2020 Note MR#: [id number] [facility] Pt. Name: Vishal Duke Date of Service: 12/02/2020 Room #: 4CD [id number] Birthdate: 1960 Referring Physician: CONSULTATION Reason for [...] disease, gout, GERD, hypertension, CAD status post MO and 2 stents, HLD, Covid pneumonia Past [...] Watkins, DO Date Trans: 12/02/2020 05:52 P/ [id number] cc: Rosa M Gonzales M.D. [address] [place] [id number] [facility] 08-20-2020 Note MR#: [id number] I [facility] Pt. Name: Vishal Duke Admitted: 08/02/2020 [...] x2 in June. The patient's son and aolvfyzi-[id number] were symptomatic just before him. The patient was complaining of fatigue and mild body aches. The patient also developed cough and mild shortness of breath. His dyspnea was initially with exertion, but progressed to minimal activity. After he spoke with his v belt skiver, he decreased his Myfortic dose and received [...] Ferreira M.D. Date Trans: 08/20/2020 05:24 A/patrizia [id number] cc: Rosa M Gonzales M.D. [address] [facility] [address] [facility] History of Present illness Narrative Patient [...] and appropriateFollowing discharge he saw his regular [place] by his internet architect to agreed with and endorsed the care we rendered. The device was interrogated it in their office and it appears to be functioning appropriately. Because of all the above he is pleased with his care. He'll be following up henceforth with the [place] internet architect and we advised him were always happy to participate in his care if he needs help. I believe his ICD will be interrogated and managed through their office. We also note that his renal transplant was not injured as a result of the hospitalization and contrast administration and/or antibiotic therapy because of this he is pleased. [facility] 250 DO Work Phone: Hospital course Narrative No data available for this section [facility] Progress note No data available for this section [facility] Chief Complaint VISHAL DUKE is being seen for follow-up of a hospitalization for [facility] D/C 12/11/2020 ICD insert. Family History No [...] section and content) DATE CREATED AUTHOR 04/25/2021 [employer] DATE CREATED AUTHOR AUTHOR'S ORGANIZ ATION 05/10/2021 [facility] DATE CREATED AUTHOR AUTHOR'S ORGANIZ ATION 07/18/2021 [facility] DATE CREATED AUTHOR AUTHOR'S ORGANIZ ATION 01/17/2022 [facility] dical Specialist DATE CREATED AUTHOR AUTHOR'S ORGANIZ ATION 08/25/2022 [facility] DATE CREATED AUTHOR AUTHOR'S ORGANIZ ATION 06/05/[address] [facility] DATE CREATED AUTHOR AUTHOR'S ORGANIZ ATION 06/13/2023 [facility] DATE CREATED AUTHOR AUTHOR'S ORGANIZ ATION 07/28/2023 [facility] dical Specialists EPIC Care Team (unrecognized sect ion and content) [employer] Miner Relationship Specialty Start Date End Date Rosa M Gonzales MD [address] [facility] [place] [address] PCP - ACO Reach 09/08/22 Rosa M Gonzales MD [address] [facility] [place] [address] PCP - General Family Medicine 10/25/22 Rosa [...] BE BASED ON THE PRIMARY CLINICAL RECORDS. [facility]. provides no warranty or guarantee of the accuracy or completeness of information in this document.
[2023-09-27 10:04] LABS: Alanine Aminotransferase 34 U/L (16-63); Albumin Globulin Ratio 1.2; Albumin Level 3.7 g/dL (3.4-5.0); Alkaline Phosphatase 80 U/L (46-116); Anion Gap 12.6; Aspartate Amino Transferase 20 U/L (15-37); Bilirubin Direct 0.1 mg/dL (0.0-0.2); Bilirubin Total 0.6 mg/dL (0.2-1.0); Chloride 106 mmol/L (98-107); Cholesterol 132 mg/dL (<=200); Estimated GFR (African America >60 (>=60); Estimated GFR (Non-African Ame >60 (>=60); Glucose 135 mg/dL (74-106); HDL Cholesterol 44 mg/dL (40-60); LDL Cholesterol Calculated 61.6 mg/dL; Magnesium 1.7 mg/dL (1.8-2.4); Phosphorus 4.1 mg/dL (2.6-4.7); Potassium 4.6 mmol/L (3.5-5.1); Sodium 143 mmol/L (136-145); Total Protein 6.7 g/dL (6.4-8.2); Triglycerides 132 mg/dL (<=150); Uric Acid 5.8 mg/dL (3.5-7.2); VLDL CHOLESTEROL 26.4 mg/dL
[2023-09-27 10:13] LABS: Basophils Absolute Auto 0.1 10^3/uL (0.0-0.1); Basophils Percent Auto 0.9 % (0.2-2.0); Eosinophils Absolute Auto 0.1 10^3/uL (0.0-0.7); Eosinophils Percent Auto 1.6 % (0.9-7.0); Hematocrit 47.7 % (42.0-54.0); Hemoglobin 15.4 g/dL (14.0-18.0); Immature Granulocytes Abs Auto 0.04 10^3/uL (0.00-0.03); Immature Granulocytes Pct Auto 0.6 % (0.0-0.5); Lymphocytes Percent Auto 14.2 % (20.5-60.0); Mean Corpuscular HGB Conc 32.3 g/dL (29.9-35.2); Mean Corpuscular Hemoglobin 30.4 pg (25.9-34.0); Mean Corpuscular Volume 94.1 fL (80.0-94.0); Mean Platelet Volume 10.4 fL (9.5-13.5); Monocytes Absolute Auto 0.8 10^3/uL (0.3-0.8); Monocytes Percent Auto 10.8 % (1.7-12.0); Neutrophils Percent Auto 71.9 % (43.0-75.0); Platelet Count 207 10^3/uL (150-450); Red Blood Count 5.07 10^6/uL (4.70-6.10)
[2023-09-29 15:09] LABS: BKV DNA, Quant PCR, Plasma Negative (Negative)
== END 2023-09-27 09:14 | disposition home or self-care (01) ==
LOC: LAB 09:13
PROVIDERS: PCP Family Medicine
DX: R73.01 Impaired fasting glucose (principal); Z94.0 Kidney transplant status
CPT/HCPCS: 36415; 80053; 80061; 80197; 82248; 83036; 83735; 84100; 84402; 84403; 84550; 85025; 87799

== ENCOUNTER 2023-10-27 09:34 | Outpatient (OUT) | payer MEDICARE, SELFPAY ==
[2023-10-27 10:55] LABS: Estimated Average Glucose 134 mg/dL; Glycohemoglobin A1C 6.3 % (4.5-6.2)
[2023-10-27 11:00] LABS: Basophils Absolute Auto 0.1 10^3/uL (0.0-0.1); Eosinophils Absolute Auto 0.1 10^3/uL (0.0-0.7); Eosinophils Percent Auto 1.9 % (0.9-7.0); Hematocrit 47.5 % (42.0-54.0); Hemoglobin 15.6 g/dL (14.0-18.0); Immature Granulocytes Abs Auto 0.02 10^3/uL (0.00-0.03); Immature Granulocytes Pct Auto 0.3 % (0.0-0.5); Lymphocytes Absolute Auto 0.8 10^3/uL (1.2-3.8); Lymphocytes Percent Auto 14.6 % (20.5-60.0); Mean Corpuscular HGB Conc 32.8 g/dL (29.9-35.2); Mean Corpuscular Volume 94.4 fL (80.0-94.0); Mean Platelet Volume 11.1 fL (9.5-13.5); Monocytes Absolute Auto 0.6 10^3/uL (0.3-0.8); Monocytes Percent Auto 9.9 % (1.7-12.0); Neutrophils Absolute Auto 4.2 10^3/uL (1.4-6.5); Neutrophils Percent Auto 72.3 % (43.0-75.0); Platelet Count 192 10^3/uL (150-450); Red Blood Count 5.03 10^6/uL (4.70-6.10); Red Cell Distribution Width 13.8 % (11.0-15.0); White Blood Count 5.8 10^3/uL (4.0-11.0)
[2023-10-27 11:17] LABS: Alanine Aminotransferase 34 U/L (16-63); Albumin Globulin Ratio 1.2; Albumin Level 3.6 g/dL (3.4-5.0); Alkaline Phosphatase 90 U/L (46-116); Anion Gap 11.1; Aspartate Amino Transferase 22 U/L (15-37); BUN Creatinine Ratio 16.4; Bilirubin Direct 0.2 mg/dL (0.0-0.2); Bilirubin Total 0.7 mg/dL (0.2-1.0); Calcium 8.8 mg/dL (8.5-10.1); Chloride 105 mmol/L (98-107); Estimated GFR (African America >60 (>=60); Estimated GFR (Non-African Ame >60 (>=60); Glucose 142 mg/dL (74-106); Magnesium 1.6 mg/dL (1.8-2.4); Phosphorus 3.3 mg/dL (2.6-4.7); Potassium 4.1 mmol/L (3.5-5.1); Sodium 140 mmol/L (136-145); Total Protein 6.6 g/dL (6.4-8.2); Uric Acid 6.2 mg/dL (3.5-7.2)
[2023-10-28 08:17] LABS: Sex Horm Binding Glob, Serum 27.3 nmol/L (19.3-76.4)
[2023-10-29 04:06] LABS: Free Testosterone(Direct) 3.3 pg/mL (6.6-18.1); Testosterone 308 ng/dL (264-916)
[2023-10-30 09:07] LABS: Tacrolimus (FK506), Blood 6.4 ng/mL (2.0-20.0)
== END 2023-10-27 09:35 | disposition home or self-care (01) ==
PROVIDERS: PCP Family Medicine
DX: Z94.0 Kidney transplant status (principal); E13.9 Other specified diabetes mellitus without complications
CPT/HCPCS: 36415; 80053; 80197; 82248; 83036; 83735; 84100; 84270; 84402; 84403; 84550; 85025

== ENCOUNTER 2023-11-27 09:13 | Outpatient (OUT) | payer MEDICARE, SELFPAY ==
[2023-11-27 09:36] LABS: Basophils Percent Auto 0.7 % (0.2-2.0); Eosinophils Absolute Auto 0.1 10^3/uL (0.0-0.7); Eosinophils Percent Auto 1.3 % (0.9-7.0); Hematocrit 48.3 % (42.0-54.0); Hemoglobin 15.8 g/dL (14.0-18.0); Immature Granulocytes Abs Auto 0.02 10^3/uL (0.00-0.03); Immature Granulocytes Pct Auto 0.3 % (0.0-0.5); Lymphocytes Absolute Auto 0.8 10^3/uL (1.2-3.8); Lymphocytes Percent Auto 13.5 % (20.5-60.0); Mean Corpuscular HGB Conc 32.7 g/dL (29.9-35.2); Mean Corpuscular Hemoglobin 30.4 pg (25.9-34.0); Mean Corpuscular Volume 93.1 fL (80.0-94.0); Mean Platelet Volume 10.2 fL (9.5-13.5); Monocytes Absolute Auto 0.6 10^3/uL (0.3-0.8); Monocytes Percent Auto 10.2 % (1.7-12.0); Neutrophils Absolute Auto 4.4 10^3/uL (1.4-6.5); Platelet Count 215 10^3/uL (150-450); Red Blood Count 5.19 10^6/uL (4.70-6.10); Red Cell Distribution Width 13.4 % (11.0-15.0)
[2023-11-27 11:15] LABS: Alanine Aminotransferase 32 U/L (16-63); Albumin Globulin Ratio 1.3; Albumin Level 3.8 g/dL (3.4-5.0); Alkaline Phosphatase 97 U/L (46-116); Anion Gap 13.6; Aspartate Amino Transferase 19 U/L (15-37); BUN Creatinine Ratio 17.4; Bilirubin Direct 0.2 mg/dL (0.0-0.2); Bilirubin Total 0.9 mg/dL (0.2-1.0); Calcium 9.3 mg/dL (8.5-10.1); Carbon Dioxide 26.6 mmol/L (21.0-32.0); Chloride 104 mmol/L (98-107); Estimated GFR (African America >60 (>=60); Estimated GFR (Non-African Ame >60 (>=60); Globulin 2.9 g/dL; Glucose 128 mg/dL (74-106); Magnesium 1.4 mg/dL (1.8-2.4); Phosphorus 3.1 mg/dL (2.6-4.7); Potassium 4.2 mmol/L (3.5-5.1); Sodium 140 mmol/L (136-145); Total Protein 6.7 g/dL (6.4-8.2); Uric Acid 6.4 mg/dL (3.5-7.2)
[2023-11-29 20:07] LABS: Tacrolimus (FK506), Blood 7.4 ng/mL (2.0-20.0)
== END 2023-11-27 09:14 | disposition home or self-care (01) ==
LOC: LAB 09:15
PROVIDERS: PCP Family Medicine
DX: E13.9 Other specified diabetes mellitus without complications (principal); Z94.0 Kidney transplant status
CPT/HCPCS: 36415; 80053; 80197; 82248; 83735; 84100; 84550; 85025

== ENCOUNTER 2023-12-07 08:50 | Outpatient (OUT) | payer MEDICARE, SELFPAY ==
--- NOTE | 2023-12-07 09:00 | CA_ITS ---
Patient Name: KACIE DUKE MR#: [id number] : 1960 Exam Date: 12/07/2023 Ordering Doctor: DR FEDERICO CHESTER M.D. 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 DESCRIPTION: COMPLETE ECHOCARDIOGRAM Real-time transthoracic echocardiography with 2D, M-mode, spectral and color flow Doppler performed. QUALITY: Technical quality was good. LEFT VENTRICLE: Normal chamber size. Proximal septal hypertrophy (sigmoid septum). LV EF: Global left ventricular systolic function is lower normal limits; visually estimated ejection fraction is 50%. The distal half of the septum is hypokinetic. DIASTOLIC: Unable to assess diastolic function ATRIAL SEPTUM: Inadequately seen. LEFT ATRIUM: Normal chamber size. RIGHT ATRIUM: Normal chamber size. RIGHT VENTRICLE: Normal chamber size. Normal systolic function. Pacer wire present. TRICUSPID VALVE: Normal mobility and thickness. No stenosis with trivial regurgitation. Unable to assess right-sided pressures due to lack of measurable tricuspid regurgitation. MITRAL VALVE: Normal mobility and thickness. No evidence of mitral valve stenosis. There is no mitral annular calcification. Mild mitral regurgitation. AORTIC VALVE: Normal trileaflet appearance. No visible sclerosis. Normal leaflet mobility. No evidence of aortic valve stenosis. Mild aortic regurgitation. AORTIC ROOT: Normal diameter and appearance. PULMONIC VALVE: Normal thickness and mobility. No stenosis. Trivial regurgitation. PERICARDIUM: No evidence of pericardial effusion. IVC: Collapses with inspirations. IVC is normal in size. CONCLUSION: 1. Global left ventricular systolic function is lower normal limits; visually estimated ejection fraction is 50% 2. Normal right ventricular size and systolic function 3. Mild mitral regurgitation 4. Mild aortic valve regurgitation Adult Echocardiography Procedure Report Left Ventricle LVEDD (3.7 - 5.6 cm): 5.06 cm LVESD (2.2 - 4.0 cm): 3.59 cm LVIVS thickness (0.6 - 1.2 cm): 1.27 cm LVPW thickness (0.5 - 1.0 cm): 1.09 cm e': 0.05 m/s E - e': 6.16 LVOT Max Gradient: 3.38 mm[Hg] LVOT Area (cm2): 0.92 m/s Peak Velocity (LVOT): 0.92 m/s Mean Velocity (LVOT): 0.66 m/s LVOT Diameter 2.03 cm Left Atrium LA Volume Index (2D A2C): 22.70 ml/m2 Left Atrium Systolic Dimension: 4.50 cm Mitral Valve MV E to A Ratio: 0.63 Mitral Valve A-Wave Peak Velocity: 0.52 m/s Mitral Valve E-Wave Peak Velocity: 0.33 m/s Right Ventricle Aorta AO Root Diam: 4.01 cm Aortic Valve AoV Area ([place]): 2.62 cm2, 2.62 cm2 AoV Area (VTI): 2.25 cm2, 2.25 cm2 Peak Velocity(Antegrade Flow): 1.13 m/s Peak Gradient(Antegrade Flow): 5.12 mm[Hg] Mean Velocity(Antegrade Flow): 0.76 m/s Mean Gradient(Antegrade Flow): 2.64 mm[Hg] Velocity Time Integral: 25.90 cm Tricuspid Valve Pulmonic Valve Mean Gradient: 1.50 mm[Hg] Mean Velocity: 0.57 m/s Peak Velocity: 0.84 m/s, 0.75 m/s Peak Gradient: 2.28 mm[Hg], 2.83 mm[Hg] Right Atrium Right Atrium Systolic Pressure: 32.29 ml, 32.29 ml Dictated by: Federico Chester M.D. on 12/07/2023 at 11:30 Approved by: Federico Chester M.D. on 12/07/2023 at 11:34
--- OUTSIDE RECORDS SUMMARY | 2023-12-07 09:14 | XMS_ITS | CCD ---
Author Organization [facility] Care Team Providers Care Program Aide Group Work Name Role Phone Rosa M Gonzales Unavailable Unavailable Unavailable YONAS HERRERA Surgeon Unavailable [place] Procedure Practitioner Unavailab YONAS Hsieh Attending Unavailable ROSA M GONZALES Primary Care Unavailable ROSA M GONZALES Referring Unavailable RAFAEL MALDONADO Admitting Unavailable ROSA M GONZALES Primary Care Unavailable ROSA M GONZALES Referring Unavailable FEDERICO CHESTER Attending Unavailable FEDERICO CHESTER Admitting Unavailable ROSA M GONZALES Primary Care Unavailable ROSA M GONZALES Referring Unavailable Daniel Jansen Attending Unavailable Daniel Jansen Admitting Unavailable JUAN FERREIRA Attending Unavailable XOCHILT CABRERA Admitting Unavailable JULIET GOLDBERG Referring Unavailable ROSA M GONZALES Primary Care Unavailable YOJANA MCDANIELS Surgeon Unavailable [place] Procedure Practitioner Unavailab prabhakar MACDONALD, REFERRED Referring Unavailable ROSA M GONZALES Primary Care Unavailable DERICK VIDAL Attending Unavailable DERICK VIDAL Admitting Unavailable ROSA M GONZALES Primary Care Physician [phone] SETPHANIE, DR LAYTON Consulting Unavailable ELTAHAWY, DR LAYTON Admitting Unavailable ELTAHAWIsamar, DR LAYTON Attending Unavailable JANET, DR DUVAL [...] DR PEDERSEN Consulting Unavailable MISC, DR PEDERSEN Attending Unavailable JANET, DR DUVAL Primary Care Unavailable UNITED, DR AIME Arnold Consulting Unavailable ELTAHAWY, DR LAYTON Admitting Unavailable ELTAHAWY, EH Attending Unavailable JANET, DR DUVAL Primary Care Unavailable ELTAHAWY, DR LAYTON Consulting Unavailable MISC, DOCTOR Admitting Unavailable MISC, DOCTOR Attending Unavailable MISC, DOCTOR Consulting Unavailable JANET, DR DUVAL Primary Care Unavailable MISC, DOCTOR Admitting Unavailable MISC, DOCTOR Attending Unavailable MISC, DOCTOR Consulting Unavailable JANET, DR DUVAL Primary Care Unavailable JANET, DR DUVAL Primary Care Unavailable MISC, DOCTOR Attending Unavailable MISC, DOCTOR Consulting Unavailable MISC, DOCTOR Admitting Unavailable MISC, DOCTOR Attending Unavailable MISC, DR PEDERSEN Consulting Unavailable JANET, DR DUVAL Primary Care Unavailable MISC, DOCTOR Admitting Unavailable Rosa M Gonzales MD Unavailable Rosa M Gonzales MD Primary Care Provider Rosa M Platt RN Unavailable [phone] EKWENNA, OBI Attending Unavailable EKWENNA, OBI Attending Unavailable ELTAHAWY, EHAB Attending Unavailable EKWENNA, OBI Admitting Unavailable EKWENNA, OBI Attending Unavailable CRISPETEY COLIN Attending Unavailable EKWENNA, OBI Attending Unavailable ELTAHAWY, EHAB Attending Unavailable TEAGAN VILLANUEVA Referring Unavailable ELTAHAWY, EHAB Attending Unavailable EKWENNA, OBI Referring Unavailable TEAGAN VILLANUEVA Referring Unavailable MACRINA MOON Attending Unavailable PETITTIALICIA Attending Unavailable ROSA M GONZALES Attending Unavailable PETITTI, ALICIA Seo Attending Unavailable ROSA M GONZALES Attending Unavailable Reji BROWER Attending Unavailable SarminiXochilt Attending Unavaila ble SarminXochilt kolb Attending Unavaila ble Allergies Allergy Classification Reported Allergen(s) Allergy Type Date of Onset Reaction(s) Facility (1 source) 22257,00; Translations: [68680,00] Propensity to adverse reactions (disorder) 9 [facility] Repository (1 source) Cephalexin; Translations: [Keflex] Drug Allergy [facility] Medications Current Medications Medication Drug Class(es) Dates Sig (Normalized) Sig (Original) [id number] 200 actuat albuterol 0.09 mg/actuat metered dose [...] Start: 07-01-2020 take 1 tablet by jacob three times daily Magnesium Oxide 400 (241.3 [...] Active Start: 01-04-2021 take 1 tablet by [facility] every twenty-four hours Metoprolol Succinate ER 200 [...] Start: 02-03-2021 take 3 tablets by mo [facility] twice daily Mycophenolate Sodium 180 MG Oral [...] SL tablet Indications: Coronary artery disease involving [place] coronary artery of [place] heart with unstable angina pectoris ([facility]) Place 1 tablet (0.4 mg) under the [...] 5 MG tablet Indications: Kidney transplant status ([facility]) TAKE 1 TABLET BY MOUTH DAILY 90 [...] tab(s), Oral, Daily, Refills(s) 0 Start Date: 9/16/20 Status: Ordered Completed/Discontinued Medications Medication Drug Class(es) [...] Onset: 4 Chronic Congestive heart failure; nonhypertensive (3 sources) Chronic systolic heart failure; Translations: [Chronic systolic (congestive) heart failure] Onset: 3 11-08-2022 Chronic Coronary atherosclerosis and other heart disease (11 sources) Coronary atherosclerosis; Translations: [Coronary atherosclerosis of [place] coronary artery] Onset: 2 Chronic Deficiency and other anemia (1 source) Increased hemoglobin; Translations: [Other hemoglobinopathies] Onset: 3 11-08-2022 Chronic Deficiency and other anemia (2 sources) Other hemoglobinopathies; Translations: [Other hemoglobinopathies] Onset: 3 Chronic Diabetes mellitus without complication (2 sources) Other specified diabetes mellitus without complications; Translations: [Other specified diabetes mellitus without complications] Onset: 4 Chronic Disorders of lipid metabolism (4 sources) Hyperlipidemia; Translations: [Other and unspecified hyperlipidemia] Onset: 3 01-01-2020 Chronic Esophageal disorders (3 sources) Gastroesophageal reflux disease; Translations: [Gastro-esophageal reflux disease without esophagitis] Onset: 0 11-08-2022 Chronic Essential hypertension (5 sources) Hypertensive disorder; Translations: [Essential hypertension] Onset: 2 01-01-2020 Chronic 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 [...] Translations: [Immunodeficiency, unspecified] Onset: 3 11-08-2022 Chronic Nonspecific chest pain (2 sources) Chest pain, unspecified; Translations: [Chest pain, unspecified] Onset: 4 Episodic Nutritional deficiencies (1 source) Active rickets; Translations: [...] [EKG]; Translations: [ABNORMAL ELECTROCARDIOGRAM] Onset: 3 Episodic Screening and history of mental health and substance abuse codes (1 source) Ex-smoker; Translations: [Personal history of tobacco use] Episodic Comment on above: Quit in 2008; Unclassified (2 sources) Kidney Follow-up; Translations: [Kidney Follow-up] Onset: 4 Past or Other Problems Problem Classification Problem Date Documented Date Episodic/Chronic Acute bronchitis (1 source) Acute bronchitis; Translations: [Acute bronchitis, unspecified] Onset: 03-28-2013 02-02-2023 Episodic Diabetes mellitus without complication (2 sources) Impaired fasting glucose; Translations: [Impaired fasting glucose] Onset: 02-27-2023 Episodic Fluid and electrolyte disorders (4 sources) Disorder of electrolytes; Translations: [Other disorders of electrolyte and fluid balance, not elsewhere classified] Onset: 05-04-2022 11-08-2022 Episodic Genitourinary symptoms and ill-defined conditions (7 [...] Onset: 08-19-2022 Episodic Other lower respiratory disease (1 source) Other forms of dyspnea; Translations: [Other respiratory abnormalities] Onset: 10-24-2022 02-02-2023 Episodic Other upper respiratory infections (1 source) Upper respiratory infection; Translations: [Acute upper respiratory infection, unspecified] Onset: 11-08-2022 11-08-2022 Episodic Residual codes; unclassified (1 source) At risk for infection; Translations: [Personal history of immunosupression therapy] Onset: 12-30-2019 02-02-2023 Episodic Urinary tract infections (1 source) Pyelonephritis; Translations: [Tubulo-interstitial nephritis, not specified as acute or chronic] Onset: 12-09-2009 11-08-2022 Episodic Results Test Name Value Interpretation Reference Range Facility Reminderson 11-21-2023 Reminders Reminders From: Tamara White MA To: Tamara White MA; Sent: 02/02/2023 10:39:43 EDT Show up: 02/02/2023 10:40:00 EDT Subject: colon recall Reminder Message [address] Cerrato 02/01/13 first recall letter sent Future Appointments [facility] Appt. Date: 12/25/2023 9:30 AM Scheduled Provider: Gladys FRANK, Xochilt Butler [address] [place] [address], [address], [address] Phone: [phone] Fax: [phone] Nida [facility] Office Visiton 11-20-2023 Follow-up visit [id number] Vishal Duke 1960 M Date Provider Department Center 11/20/2023 FEDERICO MEDRANOevnikia Blackwood Family History Problem Relation Age of Onset Alzheimer's disease Mother Coronary artery disease Father Family Status - Relation Status Age at Mother Father Level of Service:15617 [place] OFFICE/OUTPATIENT ESTABLISHED MOD MDM 30 MIN Normal [facility] Office Visiton 06-05-2023 Follow-up visit [id number] Vishal Duke 1960 M Date Provider Department Center 06/05/2023 FEDERICO MEDRANO Family History Problem Relation Age of Onset Alzheimer's disease Mother Coronary artery disease Father Family Status - Relation Status Age at Mother Father Level of Service:28018 [place] OFFICE/OUTPATIENT ESTABLISHED LOW MDM 20 MIN Normal [facility] TACROLIMUS (FK506), BLOODon 05-31-2023 TACROLIMUS (FK506), BLOOD 5.5 ng/mL 2.0 - 20.0 ng/mL [facility] Comment on above: This test was develo ped and its performance characteristics determined by [employer]. It has not been cleared or approved by the Food and Drug Administration. Trough (immediately following transplant) 15.0 Trough (steady state, 2 weeks or more after transplant): 3.0 - 8.0 Performed by LC-MS/MS technology. Performed at: [address] [id number] Director [employer]: Evan Orozco MD, Phone: [phone] [facility], DIRECTon 05-18-19 24 Magnesium [Mass/Vol] 0.2 mg/dL Normal 0-0.2 [facility] Comment on above: Performed By: #### L [id number] #### [facility] (BEAKER) [address] [place] [address] CBC WITH AUTO DIFFERENTIALon 05-18-2023 Basophils (Bld) [#/Vol] 0.05 10*3/uL Normal 0.00-0.20 [facility] Comment on above: Performed By: #### L [id number] #### [facility] ([facility]) [address] [place] [address] Basophils/100 WBC (Bld) 0.6 % Normal 0.0-1.0 [facility] Comment on above: Performed By: #### L [id number] #### [facility] ([facility]) [address] [place] [address] Eosinophils (Bld) [#/Vol] 0.12 10*3/uL Normal 0.00-0.50 [facility] Comment on above: Performed By: #### L [id number] #### [facility] ([facility] [address] [place] [address] Eosinophils/100 WBC (Bld) 1.4 % Normal 0.0-6.0 [facility] Comment on above: Performed By: #### L [id number] #### [facility] ([facility] [address] [place] [address] Erythrocyte distribution width (RBC) [Ratio] 14.9 % Normal 11.5-15.0 [facility] Comment on above: Performed By: #### L [id number] #### [facility] ([facility] [address] [place] [address] ERYTHROCYTE MEAN CORPUSCULAR HEMOGLOBIN CONCENTRATION (G/DL) BY AUTOMATED 33.4 g/dL Normal 32.0-35.0 [facility] Comment on above: Performed By: #### L [id number] #### [facility] ([facility] [address] [place] [address] Hematocrit (Bld) [Volume fraction] 48.5 % Normal 39.0-55.0 [facility] Comment on above: Performed By: #### L [id number] #### [facility] ([facility] [address] [place] [address] Hemoglobin (Bld) [Mass/Vol] 16.2 g/dL Normal 13.0-17.0 [facility] Comment on above: Performed By: #### L [id number] #### [facility] ([facility]) [address] [place] [address] Immature granulocytes (Bld) [#/Vol] 0.07 10*3/uL Normal 0.00-0.20 [facility] Comment on above: Performed By: #### L [id number] #### [facility] ([facility]) [address] [place] [address] Immature granulocytes/100 WBC (Bld) 0.8 % Normal 0.0-1.0 [facility] Comment on above: Performed By: #### L [id number] #### [facility] [address] [place] [address] Lymphocytes (Bld) [#/Vol] 1.06 10*3/uL Low 1.20-4.00 [facility] Comment on above: Performed By: #### L [id number] #### [facility] ([facility] [address] [address] Lymphocytes/100 WBC (Bld) 12.3 % Low 20.0-45.0 [facility] Comment on above: Performed By: #### L [id number] #### [facility] ([facility] [address] [place] [address] MCH (RBC) [Entitic mass] 29.9 pg Normal 27.0-33.0 [facility] Comment on above: Performed By: #### L [id number] #### [facility] ([facility]) [address] [place] [address] MCV (RBC) [Entitic vol] 89.6 fL Normal 82.0-98.0 [facility] Comment on above: Performed By: #### L [id number] #### [facility] ([facility]) [address] [place] [address] Monocytes (Bld) [#/Vol] 0.68 10*3/uL Normal 0.10-1.00 [facility] Comment on above: Performed By: #### L [id number] #### [facility] ([facility]) [address] [place] [address] Monocytes/100 WBC (Bld) 7.9 % Normal 5.0-12.0 [facility] Comment on above: Performed By: #### L [id number] #### [facility] ([facility] [address] [place] [address] Neutrophils (Bld) [#/Vol] 6.61 10*3/uL Normal 1.60-7.60 [facility] Comment on above: Performed By: #### L [id number] #### [facility] ([facility] [address] [place] [address] Neutrophils/100 WBC (Bld) 77.0 % High 40.0-72.0 [facility] Comment on above: Performed By: #### L [id number] #### [facility] ([facility] [address] [place] [address] NRBC (PER 100 WBCS) BY AUTOMATED COUNT 0.0 % Normal 0 [facility] Comment on above: Performed By: #### L [id number] #### [facility] ([facility] [address] [place] [address] PLATELETS (10*3/UL) IN BLOOD AUTOMATED COUNT 254 10*3/uL Normal 150-400 [facility] Comment on above: Performed By: #### L [id number] #### [facility] ([facility] [address] [place] [address] RBC (Bld) [#/Vol] 5.41 10*6/uL Normal 4.20-5.70 [facility] Comment on above: Performed By: #### L [id number] #### [facility] ([facility] [address] [place] [address] WBC (Bld) [#/Vol] 8.59 10*3/uL Normal 4.00-10.60 [facility] Comment on above: Performed By: #### L [id number] #### [facility] [address] [place] [address] COMPREHENSIVE METABOLIC PANE Nitin 05-18-2023 Albumin [Mass/Vol] 4.5 g/dL Normal 3.5-5.[address] [facility] Comment on above: Performed By: #### L [id number] #### [facility] ([facility] [address] [place] [address] ALP [Catalytic activity/Vol] 78 U/L Normal 34-104 [facility] Comment on above: Performed By: #### L [id number] #### [facility] ([facility] [address] [place] [address] ALT [Catalytic activity/Vol] 22 U/L Normal 7-52 [facility] Comment on above: Performed By: #### L [id number] #### [facility] ([facility] [address] [place] [address] Anion gap [Moles/Vol] 12 mmol/L Normal 7-20 [facility] Comment on above: Performed By: #### L [id number] #### [facility] ([facility] [address] [place] [address] AST [Catalytic activity/Vol] 17 U/L Normal 13-39 [facility] Comment on above: Performed By: #### L [id number] #### [facility] ([facility] [address] [place] [address] Bilirubin [Mass/Vol] 0.8 mg/dL Normal 0.3-1.0 [facility] Comment on above: Performed By: #### L [id number] #### [facility] ([facility] [address] [place] [address] Calcium [Mass/Vol] 9.4 mg/dL Normal 8.6-10.[address] [facility] Comment on above: Performed By: #### L [id number] #### [facility] ([facility] [address] [place] [address] Chloride [Moles/Vol] 101 mmol/L Normal 98-107 [facility] Comment on above: Performed By: #### L [id number] #### [facility] ([facility] [address] [facility] [place] [address] CO2 [Moles/Vol] 26 mmol/L Normal 21-31 [facility] Comment on above: Performed By: #### L [id number] #### [facility] ([facility] [address] [place] [address] Creatinine [Mass/Vol] 1.24 mg/dL Normal 0.70-1.30 [facility] Comment on above: Performed By: #### L [id number] #### [facility] ([facility] [address] [place] [address] GLOMERULAR FILTRATION RATE ML/MIN/1.73 SQ M.PREDICTED 65.7 mL/min/1.73m*2 Normal >60.0 [facility] Comment on above: Result Comment: [facility]???s estimated glomerular filtration rate (eGFR) will [...] individuals. Performed By: #### L [id number] #### [facility] ([facility] [address] [place] [address] Glucose [Mass/Vol] 130 mg/dL High 70-[address] [facility] Comment on above: Performed By: #### L [id number] #### [facility] ([facility] [address] [place] [address] Potassium [Moles/Vol] 4.0 mmol/L Normal 3.5-5.1 [facility] Comment on above: Performed By: #### L [id number] #### [facility] ([facility] [address] [place] [address] Protein [Mass/Vol] 6.8 g/dL Normal 6.0-8.[address] [facility] Comment on above: Performed By: #### L [id number] #### [facility] ([facility]) [address] [place] [address] Sodium [Moles/Vol] 135 mmol/L Low 136-[address] [facility] Comment on above: Performed By: #### L [id number] #### [facility] [address] [place] [address] Urea nitrogen [Mass/Vol] 24 mg/dL Normal 7-25 [facility] Comment on above: Performed By: #### L [id number] #### [facility] [address] [place] [address] UREA NITROGEN/CREATININE (MASS RATIO) IN SER/PLAS 19.4 Normal [facility] Comment on above: Performed By: #### L [id number] #### [facility] ([facility] [address] [place] [address] Follow-Upon 05-18-2023 Follow-Up [id number] Vishal Duke 1960 M Date Provider Department Center 05/18/2023 [id number], OBI TXP None Family History Problem Relation Age of Onset Alzheimer's disease Mother Coronary artery disease Father Family Status - Relation Status Age at Mother Father Level of Service:18583 [place] OFFICE/OUTPATIENT ESTABLISHED LOW MDM 20 MIN Reason for Visit and Comments: Kidney Follow-up [] - Patient has no major concerns today Normal [facility] HEMOGLOBIN A1Con 05-18-2023 Glucose [Mass/Vol] 137 mg/dL Normal [facility] Comment on above: Performed By: #### L [id number] #### [facility] [address] [place] [address] HbA1c (Bld) [Mass fraction] 6.4 % High 4.0-6.0 [facility] Comment on above: Performed By: #### L [id number] #### [facility] [address] [place] [address] LIPID PANELon 05-18-2023 CHOL/HDL 3.2 mg/dL Normal [facility] Comment on above: Performed By: #### L [id number] #### [facility] ([facility] [address] [facility] [place] [place] [address] Cholesterol [Mass/Vol] 120 mg/dL Normal 120-200 [facility] Comment on above: Performed By: #### L [id number] #### [facility] ([facility] [address] [facility] [place] [place] [address] Magnesium [Mass/Vol] 209 mg/dL High 40-149 [facility] Comment on above: Result Comment: TRIG LYCERIDE REFERENCE RANGE: 20 YEARS AND OLDER CARDIOVASCULAR RISK LESS THAN 150 mg/dL LOW RISK 150 TO 199 mg/dL BORDERLINE RISK 200 mg/dL AND GREATER HIGH RISK Performed By: #### L [id number] #### [facility] ([facility] [address] [place] [address] Magnesium [Mass/Vol] 40 mg/dL Normal 0-160 [facility] Comment on above: Performed By: #### L [id number] #### [facility] ([facility] [address] [place] [address] Magnesium [Mass/Vol] 38 mg/dL Normal 23-92 [facility] Comment on above: Performed By: #### L [id number] #### [facility] ([facility] [address] [place] [address] NON HDL CHOL. (LDL+VLDL) 82 Normal [facility] Comment on above: Performed By: #### L [id number] #### [facility] [address] [place] [address] TOTAL VLDL-C 42 mg/dL High 0-40 [facility] Comment on above: Performed By: #### L [id number] #### [facility] [address] [facility] [place] [address] Labon 05-18-2023 Lab [id number] Vishal Duke 1960 M Date Provider Department Center 05/18/2023 [id number] DRAW STATION KXT Draw [facility] Family History Problem Relation Age of Onset Alzheimer's disease Mother Coronary artery disease Father Family Status - Relation Status Age at Mother Father Normal [facility] MAGNESIUMon 05-18-2023 Magnesium [Mass/Vol] 1.6 mg/dL Low 1.9-2.7 [facility] Comment on above: Performed By: #### L [id number] ####[facility] ([facility] [place] [address] Orders Onlyon 05-18-2023 Orders Only [id number] Vishal Duke 1960 M Date Provider Department Center 05/18/2023 1971-FARRUKH BLANCAS None Family History Problem Relation Age of Onset Alzheimer's disease Mother Coronary artery disease Father Family Status - Relation Status Age at Mother Father Normal [facility] PHOSPHORUSon 05-18-2023 Magnesium [Mass/Vol] 3.5 mg/dL Normal 2.5-5.0 [facility] Comment on above: Performed By: #### L [id number] ####[facility] (BEAKER)[address] [place], [place] [address] TACROLIMUS LEVELon Tacrolimus (Bld) [Mass/Vol] 11.6 ng/mL Normal 5.0-20.0 [facility] Comment on above: Result Comment: The [employer]PER[employer] Tacrolimus assay is a delayed one-step immunoassay for the quantitative determination of tacrolimus in human whole blood using the chemiluminescent microparticle immunoassay (CMIA) technology with flexible assay protocols, referred to as Chemiflex. Performed By: #### L [id number] #### [facility] ([facility]AKER) [address] [place] [address] TESTOSTERONE, FREE AND TOTAL , AND SHBGon 05-18-2023 SEX HORMONE BINDING GLOBULIN (NMOL/L) IN SER/PLAS 28 nmol/L Normal 11-80 [facility] Comment on above: Performed By: #### L [id number] #### [facility] ([facility]ER) [address] [place] [address] TESTOSTERONE (NG/DL) IN SER/PLAS 319 ng/dL Normal 220-1000 [facility] Comment on above: Performed By: #### L [id number] #### [facility] ([facility] [address] [place] [address] TESTOSTERONE FREE (NG/ML) IN SER/PLAS 69.3 pg/mL Normal 47-244 [facility] Comment on above: Result Comment: The concentration of free testosterone is derived from a mathematical expression based on the constant for the binding of testosterone to albumin and/or sex hormone binding globulin. Test Performed by [employer] [facility] [place] [address] - Released 05/18/2023 15:33 Performed By: #### L [id number] #### [facility] ([facility] [address] [place] [address] URIC ACIDon 05-18-2023 Magnesium [Mass/Vol] 5.1 mg/dL Normal 4.4-7.6 [facility] Comment on above: Performed By: #### L [id number] #### [facility] ([facility] [address] [place] [address] BILIRUBIN, DIRECTon 03-28-20 Magnesium [Mass/Vol] 0.1 mg/dL Normal 0-0.2 [facility] Comment on above: Performed By: #### L [id number] #### [facility] ([facility] [address] [place] [address] CBC WITH AUTO DIFFERENTIALon 03-28-2023 Basophils (Bld) [#/Vol] 0.08 10*3/uL Normal 0.00-0.20 [facility] Comment on above: Performed By: #### L [id number] #### [facility] ([facility] [address] [place] [address] Basophils/100 WBC (Bld) 0.8 % Normal 0.0-1.0 [facility] Comment on above: Performed By: #### L [id number] #### [facility] ([facility])) [address] [place] [address] Eosinophils (Bld) [#/Vol] 0.17 10*3/uL Normal 0.00-0.50 [facility] Comment on above: Performed By: #### L [id number] #### [facility] ([facility]AKER) [address] [place] [address] Eosinophils/100 WBC (Bld) 1.7 % Normal 0.0-6.0 [facility] Comment on above: Performed By: #### L [id number] #### [facility] ([facility])) [address] [place] [address] Erythrocyte distribution width (RBC) [Ratio] 14.8 % Normal 11.5-15.0 [facility] Comment on above: Performed By: #### L [id number] #### [facility] ([facility] [address] [place] [address] ERYTHROCYTE MEAN CORPUSCULAR HEMOGLOBIN CONCENTRATION (G/DL) BY AUTOMATED 32.9 g/dL Normal 32.0-35.0 [facility] Comment on above: Performed By: #### L [id number] #### [facility] ([facility])) [address] [place] [address] Hematocrit (Bld) [Volume fraction] 49.3 % Normal 39.0-55.0 [facility] Comment on above: Performed By: #### L [id number] #### [facility] [address] [place] [address] Hemoglobin (Bld) [Mass/Vol] 16.2 g/dL Normal 13.0-17.0 [facility] Comment on above: Performed By: #### L [id number] #### [facility] [address] [place] [address] Immature granulocytes (Bld) [#/Vol] 0.07 10*3/uL Normal 0.00-0.20 [facility] Comment on above: Performed By: #### L [id number] #### [facility] (BEAKER) [address] [place] [address] Immature granulocytes/100 WBC (Bld) 0.7 % Normal 0.0-1.0 [facility] Comment on above: Performed By: #### L [id number] #### [facility] ([facility]) [address] [place] [address] Lymphocytes (Bld) [#/Vol] 1.26 10*3/uL Normal 1.20-4.00 [facility] Comment on above: Performed By: #### L [id number] #### [facility] ([facility])) [address] [place] [address] Lymphocytes/100 WBC (Bld) 12.4 % Low 20.0-45.0 [facility] Comment on above: Performed By: #### L [id number] #### [facility] ([facility])) [address] [place] [address] MCH (RBC) [Entitic mass] 29.8 pg Normal 27.0-33.0 [facility] Comment on above: Performed By: #### L [id number] #### [facility] ([facility])) [address] [place] [address] MCV (RBC) [Entitic vol] 90.8 fL Normal 82.0-98.0 [facility] Comment on above: Performed By: #### L [id number] #### [facility] ([facility])) [address] [place] [address] Monocytes (Bld) [#/Vol] 0.94 10*3/uL Normal 0.10-1.00 [facility] Comment on above: Performed By: #### L [id number] #### [facility] ([facility])) [address] [place] [address] Monocytes/100 WBC (Bld) 9.2 % Normal 5.0-12.0 [facility] Comment on above: Performed By: #### L [id number] #### [facility] ([facility])) [address] [place] [address] Neutrophils (Bld) [#/Vol] 7.66 10*3/uL High 1.60-7.60 [facility] Comment on above: Performed By: #### L [id number] #### [facility] ([facility]) [address] [place] [address] Neutrophils/100 WBC (Bld) 75.2 % High 40.0-72.0 [facility] Comment on above: Performed By: #### L [id number] #### [facility] ([facility])) [address] [place] [address] NRBC (PER 100 WBCS) BY AUTOMATED COUNT 0.0 % Normal 0 [facility] Comment on above: Performed By: #### L [id number] #### [facility] ([facility])) [address] [place] [address] PLATELETS (10*3/UL) IN BLOOD AUTOMATED COUNT 276 10*3/uL Normal 150-400 [facility] Comment on above: Performed By: #### L [id number] #### [facility] ([facility])) [address] [place] [address] RBC (Bld) [#/Vol] 5.43 10*6/uL Normal 4.20-5.70 [facility] Comment on above: Performed By: #### L [id number] #### [facility] ([facility])) [address] [place] [address] WBC (Bld) [#/Vol] 10.18 10*3/uL Normal 4.00-10.60 [facility] Comment on above: Performed By: #### L [id number] #### [facility] ([facility])) [address] [place] [address] COMPREHENSIVE METABOLIC PANE Nitin 03-28-2023 Albumin [Mass/Vol] 4.7 g/dL Normal 3.5-5.[address] [facility] Comment on above: Performed By: #### L [id number] #### [facility] ([facility])) [address] [place] [address] ALP [Catalytic activity/Vol] 92 U/L Normal 34-104 [facility] Comment on above: Performed By: #### L [id number] #### [facility] ([facility])) [address] [place] [address] ALT [Catalytic activity/Vol] 19 U/L Normal 7-52 [facility] Comment on above: Performed By: #### L [id number] #### [facility] ([facility])) [address] [place] [address] Anion gap [Moles/Vol] 11 mmol/L Normal 7-20 [facility] Comment on above: Performed By: #### L [id number] #### [facility] ([facility])) [address] [place] [address] AST [Catalytic activity/Vol] 17 U/L Normal 13-39 [facility] Comment on above: Performed By: #### L [id number] #### [facility] ([facility])) [address] [place] [address] Bilirubin [Mass/Vol] 0.6 mg/dL Normal 0.3-1.0 [facility] Comment on above: Performed By: #### L [id number] #### [facility] ([facility])) [address] [place] [address] Calcium [Mass/Vol] 9.9 mg/dL Normal 8.6-10.[address] [facility] Comment on above: Performed By: #### L [id number] #### [facility] ([facility])) [address] [place] [address] Chloride [Moles/Vol] 105 mmol/L Normal 98-107 [facility] Comment on above: Performed By: #### L [id number] #### [facility] ([facility]) [address] [place] [address] CO2 [Moles/Vol] 27 mmol/L Normal 21-31 [facility] Comment on above: Performed By: #### L [id number] #### [facility] ([facility]) [address] [place] [address] Creatinine [Mass/Vol] 1.21 mg/dL Normal 0.70-1.30 [facility] Comment on above: Performed By: #### L [id number] #### [facility] ([facility]) [address] [place] [address] GLOMERULAR FILTRATION RATE ML/MIN/1.73 SQ M.PREDICTED 67.7 mL/min/1.73m*2 Normal >60.0 [facility] Comment on above: Result Comment: [facility]???s estimated glomerular filtration rate (eGFR) will [...] individuals. Performed By: #### L [id number] #### [facility] ([facility])) [address] [place] [address] Glucose [Mass/Vol] 136 mg/dL High 70-[address] [facility] Comment on above: Performed By: #### L [id number] #### [facility] ([facility])) [address] [place] [address] Potassium [Moles/Vol] 4.8 mmol/L Normal 3.5-5.1 [facility] Comment on above: Performed By: #### L [id number] #### [facility] ([facility])) [address] [place] [address] Protein [Mass/Vol] 6.9 g/dL Normal 6.0-8.[address] [facility] Comment on above: Performed By: #### L [id number] #### [facility] ([facility]) [address] [place] [address] Sodium [Moles/Vol] 138 mmol/L Normal 136-[address] [facility] Comment on above: Performed By: #### L [id number] #### [facility] ([facility]) [address] [place] [address] Urea nitrogen [Mass/Vol] 20 mg/dL Normal 7-25 [facility] Comment on above: Performed By: #### L [id number] #### [facility] ([facility])) [address] [place] [address] UREA NITROGEN/CREATININE (MASS RATIO) IN SER/PLAS 16.5 Normal [facility] Comment on above: Performed By: #### L [id number] #### [facility] ([facility])) [address] [place] [address] Follow-Upon 03-28-2023 Follow-Up [id number] Vishal Duke 1960 M Date Provider Department Center 03/28/2023 124-PETEY REDDING None Family History Problem Relation Age of Onset Alzheimer's disease Mother Coronary artery disease Father Family Status - Relation Status Age at Mother Father Level of Service:68124 [place] OFFICE/OUTPATIENT ESTABLISHED MOD MDM 30-39 MIN Reason for Visit and Comments: Kidney Follow-up [[id number]] - Patient have no concerns Normal [facility] LIPID PANELon 03-28-2023 CHOL/HDL 2.8 mg/dL Normal [facility] Comment on above: Performed By: #### L [id number] #### [facility] ([facility])) [address] [place] [address] Cholesterol [Mass/Vol] 125 mg/dL Normal 120-200 [facility] Comment on above: Performed By: #### L [id number] #### [facility] ([facility])) [address] [place] [address] Magnesium [Mass/Vol] 157 mg/dL High 40-149 [facility] Comment on above: Result Comment: TRIG LYCERIDE REFERENCE RANGE: 20 YEARS AND OLDER CARDIOVASCULAR RISK LESS THAN 150 mg/dL LOW RISK 150 TO 199 mg/dL BORDERLINE RISK 200 mg/dL AND GREATER HIGH RISK Performed By: #### L [id number] #### [facility] ([facility] [address] [place] [address] Magnesium [Mass/Vol] 49 mg/dL Normal 0-160 [facility] Comment on above: Performed By: #### L [id number] #### [facility] ([facility])) [address] [place] [address] Magnesium [Mass/Vol] 45 mg/dL Normal 23-92 [facility] Comment on above: Performed By: #### L [id number] #### [facility] ([facility])) [address] [place] [address] NON HDL CHOL. (LDL+VLDL) 80 Normal [facility] Comment on above: Performed By: #### L [id number] #### [facility] ([facility])) [address] [place] [address] TOTAL VLDL-C 31 mg/dL Normal 0-40 [facility] Comment on above: Performed By: #### L [id number] #### [facility] ([facility])) [address] [place] [address] Labon 03-28-2023 Lab [id number] Vishal Duke 1960 M Date Provider Department [place] 03/28/2023 [address]-DES DRAW STATION KXT Draw [facility] Family History Problem Relation Age of Onset Alzheimer's disease Mother Coronary artery disease Father Family Status - Relation Status Age at Mother Father Normal [facility] MAGNESIUMon 03-28-2023 Magnesium [Mass/Vol] 1.5 mg/dL Low 1.9-2.7 [facility] Comment on above: Performed By: #### L [id number] #### [facility] ([facility])) [address] [place] [address] PHOSPHORUSon 03-28-2023 Magnesium [Mass/Vol] 3.6 mg/dL Normal 2.5-5.0 [facility] Comment on above: Performed By: #### L [id number] #### [facility] ([facility])) [address] [place] [address] TACROLIMUS LEVELon Tacrolimus (Bld) [Mass/Vol] 9.6 ng/mL Normal 5.0-20.0 [facility] Comment on above: Result Comment: The [employer] Tacrolimus assay is a delayed one-step immunoassay for the quantitative determination of tacrolimus in human whole blood using the chemiluminescent microparticle immunoassay (CMIA) technology with flexible assay protocols, referred to as Chemiflex. Performed By: #### L [id number] #### [facility] ([facility])) [address] [place] [address] URIC ACIDon 03-28-2023 Magnesium [Mass/Vol] 5.2 mg/dL Normal 4.4-7.6 [facility] Comment on above: Performed By: #### L [id number] #### [facility] ([facility])) [address] [place] [address] Orders Onlyon 03-08-2023 Orders Only [id number] Vishal Duke 1960 M Date Provider Department [place] 03/08/2023 Sailaja-FARRUKH BLANCAS TXP None Family History Problem Relation Age of Onset Alzheimer's disease Mother Coronary artery disease Father Family Status - Relation Status Age at Mother Father Normal [facility] BILIRUBIN, DIRECTon 02-10-20 Magnesium [Mass/Vol] 0.1 mg/dL Normal 0-0.2 [facility] Comment on above: Performed By: #### L [id number] #### [facility] ([facility] [address] [place] [address] CBC WITH AUTO DIFFERENTIALon 02-09-2023 Basophils (Bld) [#/Vol] 0.10 10*3/uL Normal 0.00-0.20 [facility] Comment on above: Performed By: #### L [id number] #### [facility] ([facility])) [address] [place] [address] Basophils/100 WBC (Bld) 1.0 % Normal 0.0-1.0 [facility] Comment on above: Performed By: #### L [id number] #### [facility] ([facility] [address] [place] [address] Eosinophils (Bld) [#/Vol] 0.10 10*3/uL Normal 0.00-0.50 [facility] Comment on above: Performed By: #### L [id number] #### [facility] (BEAKER) [address] [place] [address] Eosinophils/100 WBC (Bld) 1.0 % Normal 0.0-6.0 [facility] Comment on above: Performed By: #### L [id number] #### [facility] (BEAKER) [address] [place] [address] Erythrocyte distribution width (RBC) [Ratio] 14.0 % Normal 11.5-15.0 [facility] Comment on above: Performed By: #### L [id number] #### [facility] [address] [place] [address] ERYTHROCYTE MEAN CORPUSCULAR HEMOGLOBIN CONCENTRATION (G/DL) BY AUTOMATED 32.3 g/dL Normal 32.0-35.0 [facility] Comment on above: Performed By: #### L [id number] #### [facility] ([facility] [address] [place] [address] Hematocrit (Bld) [Volume fraction] 46.4 % Normal 39.0-55.0 [facility] Comment on above: Performed By: #### L [id number] #### [facility] (BEAKER) [address] [place] [address] Hemoglobin (Bld) [Mass/Vol] 15.0 g/dL Normal 13.0-17.0 [facility] Comment on above: Performed By: #### L [id number] #### [facility] (BEAKER) [address] [place] [address] Immature granulocytes (Bld) [#/Vol] 0.09 10*3/uL Normal 0.00-0.20 [facility] Comment on above: Performed By: #### L [id number] #### [facility] (BEAKER) [address] [place] [address] Immature granulocytes/100 WBC (Bld) 0.9 % Normal 0.0-1.0 [facility] Comment on above: Performed By: #### L [id number] #### [facility] (BEAKER) [address] [place] [address] Lymphocytes (Bld) [#/Vol] 0.92 10*3/uL Low 1.20-4.00 [facility] Comment on above: Performed By: #### L [id number] #### [facility] (BEAKER) [address] [place] [address] Lymphocytes/100 WBC (Bld) 9.2 % Low 20.0-45.0 [facility] Comment on above: Performed By: #### L [id number] #### [facility] ([facility]ER) [address] [place] [address] MCH (RBC) [Entitic mass] 29.5 pg Normal 27.0-33.0 [facility] Comment on above: Performed By: #### L [id number] #### [facility] (BEAKER) [address] [place] [address] MCV (RBC) [Entitic vol] 91.3 fL Normal 82.0-98.0 [facility] Comment on above: Performed By: #### L [id number] #### [facility] (BEAKER) [address] [place] [address] Monocytes (Bld) [#/Vol] 0.75 10*3/uL Normal 0.10-1.00 [facility] Comment on above: Performed By: #### L [id number] #### [facility] ([facility]ER) [address] [place] [address] Monocytes/100 WBC (Bld) 7.5 % Normal 5.0-12.0 [facility] Comment on above: Performed By: #### L [id number] #### [facility] (BEAKER) [address] [place] [address] Neutrophils (Bld) [#/Vol] 8.09 10*3/uL High 1.60-7.60 [facility] Comment on above: Performed By: #### L [id number] #### [facility] (BE[facility]) [address] [place] [address] Neutrophils/100 WBC (Bld) 80.4 % High 40.0-72.0 [facility] Comment on above: Performed By: #### L [id number] #### [facility] ([facility] [address] [place] [address] NRBC (PER 100 WBCS) BY AUTOMATED COUNT 0.0 % Normal 0 [facility] Comment on above: Performed By: #### L [id number] #### [facility] ([facility] [address] [place] [address] PLATELETS (10*3/UL) IN BLOOD AUTOMATED COUNT 567 10*3/uL High 150-400 [facility] Comment on above: Performed By: #### L [id number] #### [facility] ([facility] [address] [place] [address] RBC (Bld) [#/Vol] 5.08 10*6/uL Normal 4.20-5.70 [facility] Comment on above: Performed By: #### L [id number] #### [facility] ([facility])) [address] [place] [address] WBC (Bld) [#/Vol] 10.05 10*3/uL Normal 4.00-10.60 [facility] Comment on above: Performed By: #### L [id number] #### [facility] ([facility])) [address] [place] [address] COMPREHENSIVE METABOLIC PANE Nitin 02-09-2023 Albumin [Mass/Vol] 4.5 g/dL Normal 3.5-5.[address] [facility] Comment on above: Performed By: #### L [id number] #### [facility] ([facility] [address] [place] [address] ALP [Catalytic activity/Vol] 132 U/L High 34-104 [facility] Comment on above: Performed By: #### L [id number] #### [facility] ([facility] [address] [place] [address] ALT [Catalytic activity/Vol] 47 U/L Normal 7-52 [facility] Comment on above: Performed By: #### L [id number] #### [facility] ([facility]) [address] [place] [address] Anion gap [Moles/Vol] 13 mmol/L Normal 7-20 [facility] Comment on above: Performed By: #### L [id number] #### [facility] ([facility]) [address] [place] [address] AST [Catalytic activity/Vol] 27 U/L Normal 13-39 [facility] Comment on above: Performed By: #### L [id number] #### [facility] ([facility]) [address] [place] [address] Bilirubin [Mass/Vol] 0.6 mg/dL Normal 0.3-1.0 [facility] Comment on above: Performed By: #### L [id number] #### [facility] ([facility]) [address] [place] [address] Calcium [Mass/Vol] 9.7 mg/dL Normal 8.6-10.[address] [facility] Comment on above: Performed By: #### L [id number] #### [facility] ([facility]) [address] [place] [address] Chloride [Moles/Vol] 102 mmol/L Normal 98-107 [facility] Comment on above: Performed By: #### L [id number] #### [facility] (BEAKER) [address] [place] [address] CO2 [Moles/Vol] 27 mmol/L Normal 21-31 [facility] Comment on above: Performed By: #### L [id number] #### [facility] (BEAKER) [address] [place] [address] Creatinine [Mass/Vol] 1.17 mg/dL Normal 0.70-1.30 [facility] Comment on above: Performed By: #### L [id number] #### [facility] (BEAKER) [address] [place] [address] GLOMERULAR FILTRATION RATE ML/MIN/1.73 SQ M.PREDICTED 70.5 mL/min/1.73m*2 Normal >60.0 [facility] Comment on above: Result Comment: [facility]???s estimated glomerular filtration rate (eGFR) will [...] group of individuals. Performed By: #### L [id number] #### [facility] ([facility] [address] [place] [address] Glucose [Mass/Vol] 111 mg/dL High 70-[address] [facility] Comment on above: Performed By: #### L [id number] #### [facility] ([facility] [address] [place] [address] Potassium [Moles/Vol] 4.6 mmol/L Normal 3.5-5.1 [facility] Comment on above: Performed By: #### L [id number] #### [facility] ([facility] [address] [place] [address] Protein [Mass/Vol] 7.2 g/dL Normal 6.0-8.[address] [facility] Comment on above: Performed By: #### L [id number] #### [facility] ([facility] [address] [place] [address] Sodium [Moles/Vol] 137 mmol/L Normal 136-[address] [facility] Comment on above: Performed By: #### L [id number] #### [facility] ([facility] [address] [place] [address] Urea nitrogen [Mass/Vol] 19 mg/dL Normal 7-25 [facility] Comment on above: Performed By: #### L [id number] #### [facility] ([facility] [address] [place] [address] UREA NITROGEN/CREATININE (MASS RATIO) IN SER/PLAS 16.2 Normal [facility] Comment on above: Performed By: #### L [id number] #### [facility] ([facility] [address] [place] [address] Follow-Upon 02-09-2023 Follow-Up [id number] Visahl Duke 1960 M Date Provider Department Center 02/09/2023 [id number], OBI TXP None Family History Problem Relation Age of Onset Alzheimer's disease Mother Coronary artery disease Father Family Status - Relation Status Age at Mother Father Level of Service:09927 [place] OFFICE/OUTPATIENT ESTABLISHED LOW MDM 20-29 MIN Reason for Visit and Comments: Kidney Follow-up [[id number]] - No major concerns today Normal [facility] HEMOGLOBIN A1Con 02-09-2023 Glucose [Mass/Vol] 134 mg/dL Normal [facility] Comment on above: Performed By: #### L [id number] #### [facility] ([facility] [address] [place] [address] HbA1c (Bld) [Mass fraction] 6.3 % High 4.0-6.0 [facility] Comment on above: Performed By: #### L [id number] #### [facility] ([facility] [address] [place] [address] LIPID PANELon 02-09-2023 CHOL/HDL 3.6 mg/dL Normal [facility] Comment on above: Performed By: #### L [id number] ####[facility] ([facility] [place] [address] Cholesterol [Mass/Vol] 126 mg/dL Normal 120-200 [facility] Comment on above: Performed By: #### L [id number] ####[facility] ([facility]))[address] [place] [address] Magnesium [Mass/Vol] 214 mg/dL High 40-149 [facility] Comment on above: Result Comment: TRIG LYCERIDE REFERENCE RANGE: 20 YEARS AND OLDER CARDIOVASCULAR RISK LESS THAN 150 mg/dL LOW RISK 150 TO 199 mg/dL BORDERLINE RISK 200 mg/dL AND GREATER HIGH RISK Performed By: #### L [id number] ####[facility] ([facility]))[address] [place] [address] Magnesium [Mass/Vol] 48 mg/dL Normal 0-160 [facility] Comment on above: Performed By: #### L [id number] ####[facility] ([facility]))[address] [place] [address] Magnesium [Mass/Vol] 35 mg/dL Normal 23-92 [facility] Comment on above: Performed By: #### L [id number] ####[facility] ([facility]))[address] [place] [address] NON HDL CHOL. (LDL+VLDL) 91 Normal [facility] Comment on above: Performed By: #### L [id number] ####[facility] ([facility]))[address] [place] [address] TOTAL VLDL-C 43 mg/dL High 0-40 [facility] Comment on above: Performed By: #### L [id number] ####[facility] ([facility]))[address] [place] [address] Labon 02-09-2023 Lab [id number] Vishal Duke 1960 M Date Provider Department [place] 02/09/2023 [id number] DRAW STATION KXT Draw [facility] Family History Problem Relation Age of Onset Alzheimer's disease Mother Coronary artery disease Father Family Status - Relation Status Age at Mother Father Normal [facility] MAGNESIUMon 02-09-2023 Magnesium [Mass/Vol] 1.7 mg/dL Low 1.9-2.7 [facility] Comment on above: Performed By: #### L [id number] #### [facility] ([facility] [address] [place] [address] PHOSPHORUSon 02-09-2023 Magnesium [Mass/Vol] 3.7 mg/dL Normal 2.5-5.0 [facility] Comment on above: Performed By: #### L [id number] #### [facility] ([facility])) [address] [place] [address] TACROLIMUS LEVELon Tacrolimus (Bld) [Mass/Vol] 3.3 ng/mL Low 5.0-20.0 [facility] Comment on above: Result Comment: The [employer] Tacrolimus assay is a delayed one-step immunoassay for the quantitative determination of tacrolimus in human whole blood using the chemiluminescent microparticle immunoassay (CMIA) technology with flexible assay protocols, referred to as Chemiflex. Performed By: #### L [id number] #### [facility] ([facility] [address] [place] [address] TESTOSTERONE, FREE AND TOTAL , AND SHBGon 02-09-2023 SEX HORMONE BINDING GLOBULIN (NMOL/L) IN SER/PLAS 17 nmol/L Normal 11-80 [facility] Comment on above: Performed By: #### L [id number] #### [facility] ([facility] [address] [place] [address] TESTOSTERONE (NG/DL) IN SER/PLAS 495 ng/dL Normal 220-1000 [facility] Comment on above: Performed By: #### L [id number] #### [facility] ([facility])) [address] [place] [address] TESTOSTERONE FREE (NG/ML) IN SER/PLAS 142.2 pg/mL Normal 47-244 [facility] Comment on above: Result Comment: The concentration of free testosterone is derived from a mathematical expression based on the constant for the binding of testosterone to albumin and/or sex hormone binding globulin. Test Performed by [employer] [address] [place] [id number] - Released 02/09/2023 20:38 Performed By: #### L [id number] #### [facility] ([facility])) [address] [place] [address] URIC ACIDon 02-09-2023 Magnesium [Mass/Vol] 5.1 mg/dL Normal 4.4-7.6 [facility] Comment on above: Performed By: #### L [id number] #### [facility] (BEAKER) [address] [facility] [place] [address] Patient Letter FTon 2022 Patient Letter [facility] (Inserted Image. Lacy ble to display) February 02, 2023 VISHAL Robertson [facility] [place] [id number] : 1960 Dear Vishal, This is a reminder that you are due for an appointment with [facility]. Please contact our office at [phone] to schedule your 10 year colon recall Thank you, [facility] Normal [facility] 30on 01-25-2023 30 Problem: Neurosensor y [...] of patient condition declining or worsening Normal [facility] 30 Daily Case Managemen t Update [...] PT Recommendations: OT Recommendations: New Consults: Normal [facility] BASIC METABOLIC PANELon 01-15 Anion gap [Moles/Vol] 10 mmol/L Normal 7-20 [facility] Comment on above: Performed By: #### L [id number] ####[facility] (BEAKER)[address] [place] [address] Calcium [Mass/Vol] 6.6 mg/dL Low 8.6-10.[address] [facility] Comment on above: Performed By: #### L [id number] ####[facility] (BEAKER)[address] [place] [address] Chloride [Moles/Vol] 116 mmol/L High 98-107 [facility] Comment on above: Performed By: #### L [id number] ####[facility] (BEAKER)[address] [place] [address] CO2 [Moles/Vol] 20 mmol/L Low 21-31 [facility] Comment on above: Performed By: #### L [id number] ####[facility] (BEAKER)[address] [place] [address] Creatinine [Mass/Vol] 0.92 mg/dL Normal 0.70-1.30 [facility] Comment on above: Performed By: #### L [id number] ####[facility] [place] [address] GLOMERULAR FILTRATION RATE ML/MIN/1.73 SQ M.PREDICTED 94.1 mL/min/1.73m*2 Normal >60.0 [facility] Comment on above: Result Comment: [facility]???s estimated glomerular filtration rate (eGFR) will [...] group of individuals. Performed By: #### L [id number] ####[facility] ([facility]))[address] [place] [address] Glucose [Mass/Vol] 113 mg/dL High 70-[address] [facility] Comment on above: Performed By: #### L [id number] ####[facility] ([facility]))[address] [place] [address] Potassium [Moles/Vol] 3.3 mmol/L Low 3.5-5.1 [facility] Comment on above: Performed By: #### L [id number] ####[facility] ([facility]))[address] [place] [address] Sodium [Moles/Vol] 143 mmol/L Normal 136-[address] [facility] Comment on above: Performed By: #### L [id number] ####[facility] ([facility] [place] [address] Urea nitrogen [Mass/Vol] 17 mg/dL Normal 7-25 [facility] Comment on above: Performed By: #### L [id number] ####[facility] ([facility]))[address] [place] [address] UREA NITROGEN/CREATININE (MASS RATIO) IN SER/PLAS 18.5 Normal [facility] Comment on above: Performed By: #### L [id number] ####[facility] ([facility] [place] [address] CBCon 01-25-2023 Erythrocyte distribution width (RBC) [Ratio] 14.8 % Normal 11.5-15.0 [facility] Comment on above: Performed By: #### L [id number] #### [facility] ([facility])) [address] [place] [address] ERYTHROCYTE MEAN CORPUSCULAR HEMOGLOBIN CONCENTRATION (G/DL) BY AUTOMATED 32.2 g/dL Normal 32.0-35.0 [facility] Comment on above: Performed By: #### L [id number] #### [facility] ([facility] [address] [place] [address] Hematocrit (Bld) [Volume fraction] 42.5 % Normal 39.0-55.0 [facility] Comment on above: Performed By: #### L [id number] #### [facility] ([facility] [address] [place] [address] Hemoglobin (Bld) [Mass/Vol] 13.7 g/dL Normal 13.0-17.0 [facility] Comment on above: Performed By: #### L [id number] #### [facility] ([facility])) [address] [place] [address] MCH (RBC) [Entitic mass] 29.7 pg Normal 27.0-33.0 [facility] Comment on above: Performed By: #### L [id number] #### [facility] [address] [place] [address] MCV (RBC) [Entitic vol] 92.2 fL Normal 82.0-98.0 [facility] Comment on above: Performed By: #### L [id number] #### [facility] [address] [place] [address] PLATELETS (10*3/UL) IN BLOOD AUTOMATED COUNT 232 10*3/uL Normal 150-400 [facility] Comment on above: Performed By: #### L [id number] #### [facility] (BEAKER) [address] [place] [address] RBC (Bld) [#/Vol] 4.61 10*6/uL Normal 4.20-5.70 [facility] Comment on above: Performed By: #### L [id number] #### [facility] ([facility] [address] [place] [address] WBC (Bld) [#/Vol] 8.82 10*3/uL Normal 4.00-10.60 [facility] Comment on above: Performed By: #### L [id number] #### [facility] ([facility] [address] [place] [address] DSon 01-25-2023 DS Admission Admitted 01/24/2023 for [...] Medications These medications were sent to [facility] - [address] [place] [address] [address] [facility] [place] [address], [facility] [address] docusate sodium 100 mg capsule methocarbamol 500 [...] (*) SODIU (more content not included)... Normal [facility] MAGNESIUMon 01-25-2023 Magnesium [Mass/Vol] 1.1 mg/dL Low 1.9-2.7 [facility] Comment on above: Performed By: #### L [id number] #### [facility] (BEAKER) [address] [place] [address] NURSNOTEon 01-25-2023 NURSNOTE RN agrees with previ ous nurse assessment. Normal [facility] PHOSPHORUSon 01-25-2023 Magnesium [Mass/Vol] 3.0 mg/dL Normal 2.5-5.0 [facility] Comment on above: Performed By: #### L [id number] #### [facility] (BEAKER) [address] [place] [address] POCT GLUCOSE METER UNSOLICIT ED RESULTSon 01-25-2023 Glucose [Mass/Vol] 137 mg/dL High 70-[address] [facility] Comment on above: Order Comment: Waive d Testing in the ED is performed under the ED CLIA certificate #[id number]. Result Comment: [email or web address] Performed By: #### L [id number] #### [facility] ([facility] [address] [place] [address] Glucose [Mass/Vol] 144 mg/dL High 70-[address] [facility] Comment on above: Order Comment: Waive d Testing in the ED is performed under the ED CLIA certificate #[id number]. Result Comment: [email or web address] Performed By: #### L [id number] ####[facility] ([facility]))[address] [facility] [address] Glucose [Mass/Vol] 116 mg/dL High 70-[address] [facility] Comment on above: Order Comment: Waive d Testing in the ED is performed under the ED CLIA certificate #[id number]. Result Comment: [email or web address] Performed By: #### L [id number] ####[facility] ([facility]))[address] [place] [address] TACROLIMUS LEVELon 3 Tacrolimus (Bld) [Mass/Vol] 6.6 ng/mL Normal 5.0-20.0 [facility] Comment on above: Result Comment: The [employer] Tacrolimus assay is a delayed one-step immunoassay for the quantitative determination of tacrolimus in human whole blood using the chemiluminescent microparticle immunoassay (CMIA) technology with flexible assay protocols, referred to as Chemiflex. Performed By: #### L [id number] ####[facility] ([facility] [place] [address] ARTERIAL BLOOD GAS WITH CO-O XIMETRYon 01-24-2023 Base excess Calc (Bld) [Moles/Vol] -4.3000 mmol/L Low -2.0-3.0 [facility] Comment on above: Order Comment: OR GA S Performed By: #### L [id number] #### [facility] (BEAKER) [address] [place] [address] CARBOXYHEMOGLOBIN/H EMOGLOBIN TOTAL % IN BLOOD 1.0 % Normal 0.0-3.0 [facility] Comment on above: Order Comment: OR GA S Performed By: #### L [id number] #### [facility] (BEAKER) [address] [place] [address] CO2 (Bld) [Partial pressure] 35 mm[Hg] Normal 35-48 [facility] Comment on above: Order Comment: OR GA S Performed By: #### L [id number] #### [facility] (BEAKER) [address] [place] [address] DEOXYGENATED HEMOGLOBIN IN BLOOD 1.9 % Normal 1-5 [facility] Comment on above: Order Comment: OR GA S Performed By: #### L [id number] #### [facility] (BEAKER) [address] [place] [address] HCO3 (Bld) [Moles/Vol] 20.2 mmol/L Low 21.0-28.0 [facility] Comment on above: Order Comment: OR GA S Performed By: #### L [id number] #### [facility] (BEAKER) [address] [place] [address] Hemoglobin (Bld) [Mass/Vol] 14.9 g/dL Normal 11.7-17.4 [facility] Comment on above: Order Comment: OR GA S Performed By: #### L [id number] #### [facility] (BEAKER) [address] [place] [address] METHEMOGLOBIN/100 IN BLOOD 0.5 % Normal 0.0-1.5 [facility] Comment on above: Order Comment: OR GA S Performed By: #### L [id number] #### [facility] (BEAKER) [address] [place] [address] Oxygen (Bld) [Partial pressure] 104 mm[Hg] High 83-100 [facility] Comment on above: Order Comment: OR GA S Performed By: #### L [id number] #### [facility] (BEAKER) [address] [place] [address] OXYGEN SATURATION (%) IN ARTERIAL BLOOD 98.1 % High 94.0-98.0 [facility] Comment on above: Order Comment: OR GA S Performed By: #### L [id number] #### [facility] (BEAKER) [address] [place] [address] OXYGENATED HEMOGLOBIN IN BLOOD 96.6 % High 90.0-95.0 [facility] Comment on above: Order Comment: OR GA S Performed By: #### L [id number] #### [facility] (BEAKER) [address] [place] [address] pH (Bld) 7.37 [pH] Normal 7.35-7.45 [facility] Comment on above: Order Comment: OR GA S Performed By: #### L [id number] #### [facility] (BEAKER) [address] [place] [address] SOURCE OF OXYGEN Vent Normal [facility] Comment on above: Order Comment: OR GA S Performed By: #### L [id number] #### [facility] (BEAKER) [address] [place] [address] Base excess Calc (Bld) [Moles/Vol] -4.0000 mmol/L Low -2.0-3.0 [facility] Comment on above: Performed By: #### L [id number] #### [facility] (BEAKER) [address] [place] [address] CARBOXYHEMOGLOBIN/H EMOGLOBIN TOTAL % IN BLOOD 0.8 % Normal 0.0-3.0 [facility] Comment on above: Performed By: #### L [id number] #### [facility] (BEAKER) [address] [place] [address] CO2 (Bld) [Partial pressure] 46 mm[Hg] Normal 35-48 [facility] Comment on above: Performed By: #### L [id number] #### [facility] (BEAKER) [address] [place] [address] DEOXYGENATED HEMOGLOBIN IN BLOOD 1.3 % Normal 1-5 [facility] Comment on above: Performed By: #### L [id number] #### [facility] (BEAKER) [address] [place] [address] HCO3 (Bld) [Moles/Vol] 22.6 mmol/L Normal 21.0-28.0 [facility] Comment on above: Performed By: #### L [id number] #### [facility] ([facility] [address] [place] [address] Hemoglobin (Bld) [Mass/Vol] 15.0 g/dL Normal 11.7-17.4 [facility] Comment on above: Performed By: #### L [id number] #### [facility] (BEAKER) [address] [place] [address] METHEMOGLOBIN/100 IN BLOOD 0.5 % Normal 0.0-1.5 [facility] Comment on above: Performed By: #### L [id number] #### [facility] [address] [place] [address] Oxygen (Bld) [Partial pressure] 137 mm[Hg] High 83-100 [facility] Comment on above: Performed By: #### L [id number] #### [facility] (BEAKER) [address] [place] [address] OXYGEN SATURATION (%) IN ARTERIAL BLOOD 98.7 % High 94.0-98.0 [facility] Comment on above: Performed By: #### L [id number] #### [facility] (BEAKER) [address] [place] [address] OXYGENATED HEMOGLOBIN IN BLOOD 97.4 % High 90.0-95.0 [facility] Comment on above: Performed By: #### L [id number] #### [facility] (BEAKER) [address] [place] [address] pH (Bld) 7.30 [pH] Low 7.35-7.45 [facility] Comment on above: Performed By: #### L [id number] #### [facility] (BEAKER) [address] [place] [address] SOURCE OF OXYGEN Vent Normal [facility] Comment on above: Performed By: #### L [id number] #### [facility] (BEAKER) [address] [place] [address] BASIC METABOLIC PANELon 10-1 0-2022 Anion gap [Moles/Vol] 14 mmol/L Normal 7-20 [facility] Comment on above: Performed By: #### L [id number] #### [facility] (BEAKER) [address] [place] [address] Calcium [Mass/Vol] 8.5 mg/dL Low 8.6-10.[address] [facility] Comment on above: Performed By: #### L [id number] #### [facility] (BEAKER) [address] [place] [address] Chloride [Moles/Vol] 113 mmol/L High 98-107 [facility] Comment on above: Performed By: #### L [id number] #### [facility] (BEAKER) [address] [place] [address] CO2 [Moles/Vol] 20 mmol/L Low 21-31 [facility] Comment on above: Performed By: #### L [id number] #### [facility] (BEAKER) [address] [place] [address] Creatinine [Mass/Vol] 1.12 mg/dL Normal 0.70-1.30 [facility] Comment on above: Performed By: #### L [id number] #### [facility] (BEAKER) [address] [place] [address] GLOMERULAR FILTRATION RATE ML/MIN/1.73 SQ M.PREDICTED 74.3 mL/min/1.73m*2 Normal >60.0 [facility] Comment on above: Result Comment: [facility]???s estimated glomerular filtration rate (eGFR) will [...] group of individuals. Performed By: #### L [id number] #### [facility] ([facility] [address] [facility] [place] [address] Glucose [Mass/Vol] 148 mg/dL High 70-[address] [facility] Comment on above: Performed By: #### L [id number] #### [facility] [facility])) [address] [place] [address] Potassium [Moles/Vol] 4.6 mmol/L Normal 3.5-5.1 [facility] Comment on above: Performed By: #### L [id number] #### [facility] ([facility])) [address] [place] [address] Sodium [Moles/Vol] 142 mmol/L Normal 136-[address] [facility] Comment on above: Performed By: #### L [id number] #### [facility] ([facility])) [address] [place] [address] Urea nitrogen [Mass/Vol] 20 mg/dL Normal 7-25 [facility] Comment on above: Performed By: #### L [id number] #### [facility] ([facility])) [address] [facility] [place] [address] UREA NITROGEN/CREATININE (MASS RATIO) IN SER/PLAS 17.9 Normal [facility] Comment on above: Performed By: #### L [id number] #### [facility] ([facility])) [address] [facility] [place] [address] CALCIUM, IONIZEDon 10--202 3 CALCIUM IONIZED (MMOL/L) IN BLOOD 1.18 mmol/L Normal 1.15-1.33 [facility] Comment on above: Performed By: #### C ALCIUM, IONIZED ####[facility] RESPIRATORY [id number] [place] [address] [facility] CAL[facility] IONIZED (MMOL/L) IN BLOOD 1.12 mmol/L Low 1.15-1.33 [facility] Comment on above: Performed By: #### L [id number] #### [facility] ([facility] [address] [place] [address] CBCon 01-24-2023 Erythrocyte distribution width (RBC) [Ratio] 14.5 % Normal 11.5-15.0 [facility] Comment on above: Performed By: #### L [id number] #### [facility] ([facility])) [address] [place] [address] ERYTHROCYTE MEAN CORPUSCULAR HEMOGLOBIN CONCENTRATION (G/DL) BY AUTOMATED 33.7 g/dL Normal 32.0-35.0 [facility] Comment on above: Performed By: #### L [id number] #### [facility] ([facility])) [address] [place] [address] Hematocrit (Bld) [Volume fraction] 44.2 % Normal 39.0-55.0 [facility] Comment on above: Performed By: #### L [id number] #### [facility] ([facility])) [address] [place] [address] Hemoglobin (Bld) [Mass/Vol] 14.9 g/dL Normal 13.0-17.0 [facility] Comment on above: Performed By: #### L [id number] #### [facility] ([facility])) [address] [place] [address] MCH (RBC) [Entitic mass] 30.5 pg Normal 27.0-33.0 [facility] Comment on above: Performed By: #### L [id number] #### [facility] ([facility]) [address] [place] [address] MCV (RBC) [Entitic vol] 90.4 fL Normal 82.0-98.0 [facility] Comment on above: Performed By: #### L [id number] #### [facility] ([facility]) [address] [place] [address] PLATELETS (10*3/UL) IN BLOOD AUTOMATED COUNT 230 10*3/uL Normal 150-400 [facility] Comment on above: Performed By: #### L [id number] #### [facility] ([facility]) [address] [place] [address] RBC (Bld) [#/Vol] 4.89 10*6/uL Normal 4.20-5.70 [facility] Comment on above: Performed By: #### L [id number] #### [facility] ([facility]) [address] [place] [address] WBC (Bld) [#/Vol] 11.18 10*3/uL High 4.00-10.60 [facility] Comment on above: Performed By: #### L [id number] #### [facility] ([facility]) [address] [place] [address] HISTOLOGY - TISSUE EXAMon LAB AP CASE REPORT Normal [facility] Comment on above: Order Comment: Pre-o p diagnosis:PKD (polycystic kidney disease) [Q61.3] Result Comment: Surg ical Pathology Case: [id number] Authorizing Provider: Bobby Maldonado MD Collected: 01/24/2023 1630 Ordering Location: [facility] Main Operating Room Received: 01/24/2023 1721 Pathologist: Vaishnavi Magallon MD Specimens: A) - Kidney, RIGHT KIDNEY B) - Kidney, LEFT KIDNEY Performed By: #### L [id number] ####[facility] ([facility])[address] [place] [address] LAB AP CLINICAL INFORMATION Normal [facility] Comment on above: Order Comment: Pre-o p diagnosis:PKD (polycystic kidney disease) [Q61.3] Result Comment: Post -Op Diagnoses Q61.3 - PKD (polycystic kidney disease) [ICD-10-CM] Performed By: #### L [id number] ####[facility] (BEAKER)[address] [place] [address] LAB AP GROSS DESCRIPTION A. Kidney. Normal [facility] Comment on above: Order Comment: [...] are identified in the perinephric adipose tissue. Glory Hole Tender sections are submitted as follows: A1 Vascular and ureter margin, en face A2 Superior pole A3 Mid kidney A4 Inferior pole Rubens Cornejo, Pathologists' Card Grinder Helper Student Hussein Lemus Pathologists' Card Grinder Helper B. Kidney. Part B is received in [...] are identified in the perinephric adipose tissue. [place] Tender sections are submitted as follows: A1 Vascular and ureter margin, en face A2 Superior pole A3 Mid kidney A4 Inferior pole B5 Largest cyst with clot B6 Possible adrenal glands Rubens Cornejo, Pathologists' Card Grinder Helper Student Hussein Lemus, Pathologists' Card Grinder Helper Performed By: #### L [id number] ####[facility] ([facility]))[address] [place] [address] LAB AP MICROSCOPIC DESCRIPTION Microscopic examination performed. [facility] Comment on above: Order Comment: Pre-o p diagnosis:PKD (polycystic kidney disease) [Q61.3] Performed By: #### L [id number] ####[facility] ([facility]))[address] [place] [address] LAB AP REPORT FINAL DIAGNOSIS NARRATIVE [facility] Comment on above: Order Comment: Pre-o p diagnosis:PKD (polycystic kidney disease) [Q61.3] Result Comment: A. K idney, right, nephrectomy: - Polycystic kidney disease B. Kidney, left, nephrectomy: - Polycystic kidney disease - No significant pathologic findings in adrenal tissue Performed By: #### L [id number] ####[facility] ([facility]))[address] [place] [address] HPon 01-24-2023 Dr. Lila Campos , Dr. [...] transplant on 08/15/2017 (Kidney). Pt is on Raghu only with No ARB at this time [...] The ad (more content not included)... Normal [facility] MAGNESIUMon 01-24-2023 Magnesium [Mass/Vol] 1.3 mg/dL Low 1.9-2.7 [facility] Comment on above: Performed By: #### L [id number] #### [facility] (BEAKER) [address] [place] [address] OPNOTEon 01-24-2023 OPNOTE NEPHRECTOMY, ROBOT-ASSISTED (B) Operative Note Date: 01/24/2023 Location: [facility] OR Name: Vishal Duke, : 1960, Diagnosis Pre-op Diagnosis * PKD (polycystic kidney disease) [Q61.3] Post-op Diagnosis * PKD (polycystic kidney disease) [Q61.3] Procedures ROBOTIC ASSISTED BILATERAL NEPHRECTOMY Surgeons * Bobby Maldonado - Primary RESIDENT Amelia Olson MD [facility] Urology PGY4 Procedure Summary Anesthesia: General ASA: IV Estimated Blood Loss: 150 mL Total IV Fluids: Crystalloid Drains: [REMOVED] Urethral Catheter Non-latex 16 Fr. (Removed) Site Assessment Other (Comment) 01/25/23 0824 Collection Container Standard drainage bag 01/24/232134 Securement Method Securing device (Describe) 01/24/232134 Reason for Continuing Urinary Catheterization Surgery/procedure time > 4 hours 01/24/23 213 Output (mL) 400 mL 01/25/23 0438 Specimens ID Source Type Tests Collected By Collected At Frozen? Priority Lab ID A Kidney Tissue HISTOLOGY - TISSUE EXAM Bobby Maldonado MD 01/24/23 1630 No Routine [id number] Description: RIGHT KIDNEY B Kidney Tissue HISTOLOGY - TISSUE EXAM Bobby Maldonado MD 01/24/23 1630 No Routine [id number] Description: LEFT KIDNEY Staff: Chronometer Assembler And Adjuster: Nany Rios; Shelby Sal RN Relief Chronometer Assembler And Adjuster: Pura Dimas RN; Jos Pete, RN Relief Scrub: Fadi León CST Scrub Person: Nathalie Quintero CST; Myah Melendrez Rn L And D: Jovanna Niño RN; Joyce Caraballo, RN; Chichi Gutierrez CSA Orientee Scrub: Niya Adler CST Indications: Vishal Duke is an 62 y.o. male who is having End-stage renal disease secondary to Polycystic Kidneys who underwent donor kidney transplant on 08/15/2017. Patient was still having abdominal pain 2/2 to [facility] [place] [facility]. Procedure Details: The patient was seen [...] one 12mm robotic port and a 5mm assistant professor of philosophy port in alinear fashion. An additional 5 [...] for 12 robotic port and 5 mm assistant professor of philosophy port were all closed with 4-0 Biosyn [...] the colon (more content not included)... Normal [facility] PHOSPHORUSon 01-24-2023 Magnesium [Mass/Vol] 4.9 mg/dL Normal 2.5-5.0 [facility] Comment on above: Performed By: #### L [id number] #### [facility] ([facility])) [address] [place] [address] POCT GLUCOSE METER UNSOLICIT ED RESULTSon 01-24-2023 Glucose [Mass/Vol] 130 mg/dL High 70-[address] [facility] Comment on above: Order Comment: Waive d Testing in the ED is performed under the ED CLIA certificate #[id number]. Result Comment: pgom ez Performed By: #### L [id number] #### [facility] ([facility])) [address] [place] [address] POCT PERFUSION PANEL UNSOLIC ITED RESULTSon 01-24-2023 CO2 [Moles/Vol] 22.0 mmol/L Normal 21.0-29.0 [facility] Comment on above: Performed By: #### L [id number] ####[facility] ([facility]))[address] [place] [address] Glucose [Mass/Vol] 165 mg/dL High 70-[address] [facility] Comment on above: Performed By: #### L [id number] ####[facility] (BEAKER)[address] [place] [address] HCO3 (Bld) [Moles/Vol] 21.0 mmol/L Low 23.0-28.0 [facility] Comment on above: Performed By: #### L [id number] ####[facility] ([facility]))[address] [place] [address] Hematocrit (Bld) [Volume fraction] 41 % Normal 38-51 [facility] Comment on above: Performed By: #### L [id number] ####[facility] ([facility]))[address] [place] [address] Hemoglobin (Bld) [Mass/Vol] 13.9 g/dL Normal 12.0-17.0 [facility] Comment on above: Performed By: #### L [id number] ####[facility] ([facility]))[address] [place] [address] POCT BASE EXCESS -6.0 mmol/L Low -2.0-3.0 [facility] Comment on above: Performed By: #### L [id number] ####[facility] ([facility]))[address] [place] [address] POCT IONIZED CALCIUM 1.58 mmol/L Critically high 1.12-1.32 [facility] Comment on above: Performed By: #### L [id number] ####[facility] ([facility])[address] [place] [address] POCT PCO2 46.9 mmHg Normal 41.0-51.0 [facility] Comment on above: Performed By: #### L [id number] ####[facility] ([facility])[address] [place] [address] POCT PH 7.26 Low 7.31-7.41 [facility] Comment on above: Performed By: #### L [id number] ####[facility] ([facility])[address] [place] [address] POCT PO2 124 mmHg High 80-105 [facility] Comment on above: Performed By: #### L [id number] ####[facility] ([facility]))[address] [place] [address] POCT SO2 98 % Normal 95-98 [facility] Comment on above: Performed By: #### L [id number] ####[facility] ([facility]))[address] [place] [address] Potassium [Moles/Vol] 4.2 mmol/L Normal 3.5-4.9 [facility] Comment on above: Performed By: #### L [id number] ####[facility] ([facility]))[address] [place] [address] Sodium [Moles/Vol] 140 mmol/L Normal 138.0-146.0 [facility] Comment on above: Performed By: #### L [id number] ####[facility] ([facility]))[address] [place] [address] Glucose [Mass/Vol] 118 mg/dL High 70-[address] [facility] Comment on above: Performed By: #### L [id number] #### [facility] ([facility])) [address] [place] [address] POCT BASE EXCESS Normal [facility] Comment on above: Performed By: #### L [id number] #### [facility] ([facility])) [address] [place] [address] POCT HCO3 Normal [facility] Comment on above: Performed By: #### L [id number] #### [facility] ([facility])) [address] [place] [address] POCT HEMATOCRIT Normal [facility] Comment on above: Performed By: #### L [id number] #### [facility] ([facility])) [address] [place] [address] POCT HEMOGLOBIN Normal [facility] Comment on above: Performed By: #### L [id number] #### [facility] (BEAKER) [address] [place] [address] POCT IONIZED CALCIUM Normal [facility] Comment on above: Performed By: #### L [id number] #### [facility] ([facility]) [address] [place] [address] POCT PCO2 Normal [facility] Comment on above: Performed By: #### L [id number] #### [facility] ([facility])) [address] [place] [address] POCT PH Normal [facility] Comment on above: Performed By: #### L [id number] #### [facility] ([facility])) [address] [place] [address] POCT PO2 Normal [facility] Comment on above: Performed By: #### L [id number] #### [facility] ([facility])) [address] [place] [address] POCT SO2 Normal [facility] Comment on above: Performed By: #### L [id number] #### [facility] ([facility])) [address] [place] [address] POCT SODIUM Normal [facility] Comment on above: Performed By: #### L [id number] #### [facility] ([facility])) [address] [place] [address] POCT TOTAL CO2 Normal [facility] Comment on above: Performed By: #### L [id number] #### [facility] ([facility])) [address] [place] [address] Potassium [Moles/Vol] 3.9 mmol/L Normal 3.5-4.9 [facility] Comment on above: Performed By: #### L [id number] #### [facility] ([facility])) [address] [place] [address] POTASSIUM, WHOLE BLOODon Potassium [Moles/Vol] 4.3 mmol/L Normal 3.5-5.1 [facility] Comment on above: Performed By: #### P OTASSIUM, WHOLE BLOOD ####[facility] RESPIRATORY [id number] [place] [address] [facility] Potassium [Moles/Vol] 4.1 mmol/L Normal 3.5-5.1 [facility] Comment on above: Performed By: #### P OTASSIUM, WHOLE BLOOD ####[facility] RESPIRATORY [id number] [place] [address] [place] SODIUM, WHOLE BLOODon 2022 SODIUM, WHOLE BLOOD 136 Normal 136-145 [facility] Comment on above: Performed By: #### S ODIUM, WHOLE BLOOD ####[facility] RESPIRATORY [id number] [place] [address] [facility] SODIUM, WHOLE BLOOD 135 Low 136-145 [facility] Comment on above: Performed By: #### L [id number] #### [facility] (BEAKER) [address] [place] [address] Orders Onlyon 01-20-2023 Orders Only [id number] Vishal Duke 1960 Date Provider Department Center 01/20/2023 AMY BRODY [facility] C Family History Problem Relation Age of Onset Alzheimer's disease Mother Coronary artery disease Father Family Status - Relation Status Age at Mother Father Normal [facility] [id number] 01-12-2023 [id number] MEDICATIONS TO TAKE DAY OF SURGERY WITH SIP OF WATER USE ALBUTEROL INHALER TAKE NEXIUM ISOSORBIDE MYFORTIC TACROLIMUS METOPROLOL HOLD PLAVIX X 5 DAYS STOP 01/19/23 PT WILL COMPLETE EKG AT [facility] ON 01/13 IF YOU ARE GOING HOME AFTER YOUR SURGERY OR PROCEDURE, FOR YOUR SAFETY, YOUR SURGERY WILL BE CANCELLED IF BOTH OF THE FOLLOWING ARE NOT AVAILABLE: An adult class b truck driver over the age of 18, that [...] lenses. Do not wear perfume, make-up, nail irish, or lotions on the day of your [...] need to make any changes, please call [phone]. Notify your surgeon if you develop any illness such as a cold, cough, fever, sore throat or vomiting between now and your surgery. Thank you for entrusting us with your care. [facility] Surgical Services Team Normal [facility] Orders Onlyon 01-12-2023 Orders Only [id number] Vishal Duke 1960 M Date Provider Department Center 01/12/2023 AMY BRODY [facility] Mai Family History Problem Relation Age of Onset Alzheimer's disease Mother Coronary artery disease Father Family Status - Relation Status Age at Mother Father Normal [facility] APTTon 01-06-2023 ACTIVATED PARTIAL THROMBOPLASTIN TIME IN PPP BY COAGULATION ASSAY 27.0 Seconds Normal 25.0-35.0 [facility] Comment on above: Result Comment: Clin ical significance of the APTT is questionable in the presence of heparin. Performed By: #### L [id number] #### [facility] ([facility]) [address] [place] [address] CBC WITH AUTO DIFFERENTIALon 01-06-2023 Basophils (Bld) [#/Vol] 0.07 10*3/uL Normal 0.00-0.20 [facility] Comment on above: Performed By: #### L [id number] ####[facility] ([facility] [place] [address] Basophils/100 WBC (Bld) 1.0 % Normal 0.0-1.0 [facility] Comment on above: Performed By: #### L [id number] ####[facility] ([facility]))[address] [place] [address] Eosinophils (Bld) [#/Vol] 0.12 10*3/uL Normal 0.00-0.50 [facility] Comment on above: Performed By: #### L [id number] ####[facility] ([facility]))[address] [place] [address] Eosinophils/100 WBC (Bld) 1.8 % Normal 0.0-6.0 [facility] Comment on above: Performed By: #### L [id number] ####[facility] ([facility]))[address] [place] [address] Erythrocyte distribution width (RBC) [Ratio] 14.5 % Normal 11.5-15.0 [facility] Comment on above: Performed By: #### L [id number] ####[facility] ([facility]))[address] [place] [address] ERYTHROCYTE MEAN CORPUSCULAR HEMOGLOBIN CONCENTRATION (G/DL) BY AUTOMATED 32.3 g/dL Normal 32.0-35.0 [facility] Comment on above: Performed By: #### L [id number] ####[facility] ([facility])[address] [place] [address] Hematocrit (Bld) [Volume fraction] 50.8 % Normal 39.0-55.0 [facility] Comment on above: Performed By: #### L [id number] ####[facility] (BEAKER)[address] [place] [address] Hemoglobin (Bld) [Mass/Vol] 16.4 g/dL Normal 13.0-17.0 [facility] Comment on above: Performed By: #### L [id number] ####[facility] (BEAKER)[address] [place] [address] Immature granulocytes (Bld) [#/Vol] 0.03 10*3/uL Normal 0.00-0.20 [facility] Comment on above: Performed By: #### L [id number] ####[facility] (AKER)[address] [place] [address] Immature granulocytes/100 WBC (Bld) 0.4 % Normal 0.0-1.0 [facility] Comment on above: Performed By: #### L [id number] ####[facility] (BEAKER)[address] [place] [address] Lymphocytes (Bld) [#/Vol] 1.05 10*3/uL Low 1.20-4.00 [facility] Comment on above: Performed By: #### L [id number] ####[facility] (BEAKER)[address] [place] [address] Lymphocytes/100 WBC (Bld) 15.5 % Low 20.0-45.0 [facility] Comment on above: Performed By: #### L [id number] ####[facility] (BEAKER)[address] [place] [address] MCH (RBC) [Entitic mass] 29.4 pg Normal 27.0-33.0 [facility] Comment on above: Performed By: #### L [id number] ####[facility] (BEAKER)[address] [place] [address] MCV (RBC) [Entitic vol] 91.2 fL Normal 82.0-98.0 [facility] Comment on above: Performed By: #### L [id number] ####[facility] (BEAKER)[address] [place] [address] Monocytes (Bld) [#/Vol] 0.73 10*3/uL Normal 0.10-1.00 [facility] Comment on above: Performed By: #### L [id number] ####[facility] (BEAKER)[address] [place] [address] Monocytes/100 WBC (Bld) 10.8 % Normal 5.0-12.0 [facility] Comment on above: Performed By: #### L [id number] ####[facility] (BEAKER)[address] [place] [address] Neutrophils (Bld) [#/Vol] 4.76 10*3/uL Normal 1.60-7.60 [facility] Comment on above: Performed By: #### L [id number] ####[facility] (BEAKER)[address] [place] [address] Neutrophils/100 WBC (Bld) 70.5 % Normal 40.0-72.0 [facility] Comment on above: Performed By: #### L [id number] ####[facility] (BEAKER)[address] [place] [address] NRBC (PER 100 WBCS) BY AUTOMATED COUNT 0.0 % Normal 0 [facility] Comment on above: Performed By: #### L [id number] ####[facility] (BEAKER)[address] [place] [address] PLATELETS (10*3/UL) IN BLOOD AUTOMATED COUNT 230 10*3/uL Normal 150-400 [facility] Comment on above: Performed By: #### L [id number] ####[facility] (BEAKER)[address] [place] [address] RBC (Bld) [#/Vol] 5.57 10*6/uL Normal 4.20-5.70 [facility] Comment on above: Performed By: #### L [id number] ####[facility] (BEAKER)[address] [place] [address] WBC (Bld) [#/Vol] 6.76 10*3/uL Normal 4.00-10.60 [facility] Comment on above: Performed By: #### L [id number] ####[facility] ([facility] [place] [address] COMPREHENSIVE METABOLIC PANE Nitin 01-06-2023 Albumin [Mass/Vol] 4.7 g/dL Normal 3.5-5.[address] [facility] Comment on above: Performed By: #### L [id number] #### [facility] ([facility] [address] [place] [address] ALP [Catalytic activity/Vol] 82 U/L Normal 34-104 [facility] Comment on above: Performed By: #### L [id number] #### [facility] ([facility])) [address] [place] [address] ALT [Catalytic activity/Vol] 22 U/L Normal 7-52 [facility] Comment on above: Performed By: #### L [id number] #### [facility] ([facility])) [address] [place] [address] Anion gap [Moles/Vol] 10 mmol/L Normal 7-20 [facility] Comment on above: Performed By: #### L [id number] #### [facility] ([facility])) [address] [place] [address] AST [Catalytic activity/Vol] 18 U/L Normal 13-39 [facility] Comment on above: Performed By: #### L [id number] #### [facility] ([facility])) [address] [place] [address] Bilirubin [Mass/Vol] 0.9 mg/dL Normal 0.3-1.0 [facility] Comment on above: Performed By: #### L [id number] #### [facility] ([facility])) [address] [place] [address] Calcium [Mass/Vol] 9.6 mg/dL Normal 8.6-10.[address] [facility] Comment on above: Performed By: #### L [id number] #### [facility] (BEAKER) [address] [place] [address] Chloride [Moles/Vol] 105 mmol/L Normal 98-107 [facility] Comment on above: Performed By: #### L [id number] #### [facility] (BEAKER) [address] [place] [address] CO2 [Moles/Vol] 28 mmol/L Normal 21-31 [facility] Comment on above: Performed By: #### L [id number] #### [facility] [address] [place] [address] Creatinine [Mass/Vol] 1.27 mg/dL Normal 0.70-1.30 [facility] Comment on above: Performed By: #### L [id number] #### [facility] ([facility] [address] [place] [address] GLOMERULAR FILTRATION RATE ML/MIN/1.73 SQ M.PREDICTED 63.9 mL/min/1.73m*2 Normal >60.0 [facility] Comment on above: Result Comment: [facility]???s estimated glomerular filtration rate (eGFR) will [...] group of individuals. Performed By: #### L [id number] #### [facility] ([facility] [address] [place] [address] Glucose [Mass/Vol] 117 mg/dL High 70-[address] [facility] Comment on above: Performed By: #### L [id number] #### [facility] ([facility] [address] [place] [address] Potassium [Moles/Vol] 4.4 mmol/L Normal 3.5-5.1 [facility] Comment on above: Performed By: #### L [id number] #### [facility] ([facility])) [address] [place] [address] Protein [Mass/Vol] 6.8 g/dL Normal 6.0-8.[address] [facility] Comment on above: Performed By: #### L [id number] #### [facility] ([facility])) [address] [place] [address] Sodium [Moles/Vol] 139 mmol/L Normal 136-[address] [facility] Comment on above: Performed By: #### L [id number] #### [facility] ([facility])) [address] [place] [address] Urea nitrogen [Mass/Vol] 20 mg/dL Normal 7-25 [facility] Comment on above: Performed By: #### L [id number] #### [facility] ([facility])) [address] [place] [address] UREA NITROGEN/CREATININE (MASS RATIO) IN SER/PLAS 15.7 Normal [facility] Comment on above: Performed By: #### L [id number] #### [facility] ([facility])) [address] [place] [address] CT ABDOMEN PELVIS WO [facility] CT ABDOMEN PELVIS WO IV CONTRAST [...] appear stable. The adrenal glands appear stable. [place] kidneys are diffusely replaced by cystic change. [...] reasonably achievable. Electronically signed: Dona Escobar. Normal [facility] Labon 01-06-2023 Lab [id number] ZuleikaVishal Waldemar 1960 M Date Provider Department Center 01/06/2023 2227-[facility] OPD LAB RESOURCE [facility] OPD [facility] Family History Problem Relation Age of Onset Alzheimer's disease Mother Coronary artery disease Father Family Status - Relation Status Age at Mother Father Normal [facility] PROTIME-INRon 01-06-2023 INR IN PPP BY COAGULATION ASSAY 1.07 Normal 0.90-1.10 [facility] Comment on above: Result Comment: ACCC [...] CHEST 1995;[id number]. Performed By: #### L [id number] ####[facility] (BEAKER)[address] [place] [address] PROTHROMBIN TIME (PT) IN PPP BY COAGULATION ASSAY 13.9 Seconds Normal 12.3-14.8 [facility] Comment on above: Performed By: #### L [id number] ####[facility] (BEAKER)[address] [place] [address] TYPE AND SCREENon 01-06-2023 AB SCREEN Negative Normal [facility] Comment on above: Performed By: #### L [id number] ####[facility] BLOOD BANK, ABO group Nom (Bld) A Normal [facility] Comment on above: Performed By: #### L [id number] ####[facility] BLOOD BANK, RH TYPE IN BLOOD Positive Normal [facility] Comment on above: Performed By: #### L [id number] ####[facility] BLOOD BANK, BILIRUBIN, DIRECTon 12-23-19 Magnesium [Mass/Vol] 0.2 mg/dL Normal 0-0.2 [facility] Comment on above: Performed By: #### L [id number] ####[facility] (BEAKER)[address] [place] [address] CBC WITH AUTO DIFFERENTIALon 12-22-2022 Basophils (Bld) [#/Vol] 0.04 10*3/uL Normal 0.00-0.20 [facility] Comment on above: Performed By: #### L [id number] #### [facility] (BEAKER) [address] [place] [address] Basophils/100 WBC (Bld) 0.5 % Normal 0.0-1.0 [facility] Comment on above: Performed By: #### L [id number] #### [facility] (BEAKER) [address] [place] [address] Eosinophils (Bld) [#/Vol] 0.12 10*3/uL Normal 0.00-0.50 [facility] Comment on above: Performed By: #### L [id number] #### [facility] (BEAKER) [address] [place] [address] Eosinophils/100 WBC (Bld) 1.6 % Normal 0.0-6.0 [facility] Comment on above: Performed By: #### L [id number] #### [facility] ([facility])) [address] [place] [address] Erythrocyte distribution width (RBC) [Ratio] 14.6 % Normal 11.5-15.0 [facility] Comment on above: Performed By: #### L [id number] #### [facility] ([facility])) [address] [place] [address] ERYTHROCYTE MEAN CORPUSCULAR HEMOGLOBIN CONCENTRATION (G/DL) BY AUTOMATED 32.5 g/dL Normal 32.0-35.0 [facility] Comment on above: Performed By: #### L [id number] #### [facility] ([facility])) [address] [place] [address] Hematocrit (Bld) [Volume fraction] 50.1 % Normal 39.0-55.0 [facility] Comment on above: Performed By: #### L [id number] #### [facility] ([facility])) [address] [place] [address] Hemoglobin (Bld) [Mass/Vol] 16.3 g/dL Normal 13.0-17.0 [facility] Comment on above: Performed By: #### L [id number] #### [facility] ([facility])) [address] [place] [address] Immature granulocytes (Bld) [#/Vol] 0.05 10*3/uL Normal 0.00-0.20 [facility] Comment on above: Performed By: #### L [id number] #### [facility] (BEAKER) [address] [place] [address] Immature granulocytes/100 WBC (Bld) 0.7 % Normal 0.0-1.0 [facility] Comment on above: Performed By: #### L [id number] #### [facility] (BEAKER) [address] [place] [address] Lymphocytes (Bld) [#/Vol] 1.03 10*3/uL Low 1.20-4.00 [facility] Comment on above: Performed By: #### L [id number] #### [facility] ([facility])) [address] [place] [address] Lymphocytes/100 WBC (Bld) 13.4 % Low 20.0-45.0 [facility] Comment on above: Performed By: #### L [id number] #### [facility] ([facility])) [address] [place] [address] MCH (RBC) [Entitic mass] 29.9 pg Normal 27.0-33.0 [facility] Comment on above: Performed By: #### L [id number] #### [facility] ([facility])) [address] [place] [address] MCV (RBC) [Entitic vol] 91.8 fL Normal 82.0-98.0 [facility] Comment on above: Performed By: #### L [id number] #### [facility] ([facility])) [address] [place] [address] Monocytes (Bld) [#/Vol] 0.73 10*3/uL Normal 0.10-1.00 [facility] Comment on above: Performed By: #### L [id number] #### [facility] ([facility])) [address] [place] [address] Monocytes/100 WBC (Bld) 9.5 % Normal 5.0-12.0 [facility] Comment on above: Performed By: #### L [id number] #### [facility] ([facility])) [address] [place] [address] Neutrophils (Bld) [#/Vol] 5.69 10*3/uL Normal 1.60-7.60 [facility] Comment on above: Performed By: #### L [id number] #### [facility] (BEAKER) [address] [place] [address] Neutrophils/100 WBC (Bld) 74.3 % High 40.0-72.0 [facility] Comment on above: Performed By: #### L [id number] #### [facility] ([facility])) [address] [place] [address] NRBC (PER 100 WBCS) BY AUTOMATED COUNT 0.0 % Normal 0 [facility] Comment on above: Performed By: #### L [id number] #### [facility] ([facility])) [address] [place] [address] PLATELETS (10*3/UL) IN BLOOD AUTOMATED COUNT 247 10*3/uL Normal 150-400 [facility] Comment on above: Performed By: #### L [id number] #### [facility] ([facility])) [address] [place] [address] RBC (Bld) [#/Vol] 5.46 10*6/uL Normal 4.20-5.70 [facility] Comment on above: Performed By: #### L [id number] #### [facility] ([facility])) [address] [place] [address] WBC (Bld) [#/Vol] 7.66 10*3/uL Normal 4.00-10.60 [facility] Comment on above: Performed By: #### L [id number] #### [facility] ([facility])) [address] [place] [address] COMPREHENSIVE METABOLIC PANE Nitin 12-22-2022 Albumin [Mass/Vol] 4.6 g/dL Normal 3.5-5.[address] [facility] Comment on above: Performed By: #### L [id number] ####[facility] ([facility]))[address] [place] [address] ALP [Catalytic activity/Vol] 88 U/L Normal 34-104 [facility] Comment on above: Performed By: #### L [id number] ####[facility] ([facility]))[address] [place] [address] ALT [Catalytic activity/Vol] 24 U/L Normal 7-52 [facility] Comment on above: Performed By: #### L [id number] ####[facility] (BEAKER)[address] [place] [address] Anion gap [Moles/Vol] 12 mmol/L Normal 7-20 [facility] Comment on above: Performed By: #### L [id number] ####[facility] ([facility]))[address] [place] [address] AST [Catalytic activity/Vol] 19 U/L Normal 13-39 [facility] Comment on above: Performed By: #### L [id number] ####[facility] ([facility]))[address] [place] [address] Bilirubin [Mass/Vol] 0.7 mg/dL Normal 0.3-1.0 [facility] Comment on above: Performed By: #### L [id number] ####[facility] ([facility]))[address] [place] [address] Calcium [Mass/Vol] 9.2 mg/dL Normal 8.6-10.[address] [facility] Comment on above: Performed By: #### L [id number] ####[facility] ([facility]))[address] [place] [address] Chloride [Moles/Vol] 105 mmol/L Normal 98-107 [facility] Comment on above: Performed By: #### L [id number] ####[facility] ([facility]))[address] [place] [address] CO2 [Moles/Vol] 27 mmol/L Normal 21-31 [facility] Comment on above: Performed By: #### L [id number] ####[facility] ([facility]))[address] [place] [address] Creatinine [Mass/Vol] 1.27 mg/dL Normal 0.70-1.30 [facility] Comment on above: Performed By: #### L [id number] ####[facility] ([facility]))[address] [place] [address] GLOMERULAR FILTRATION RATE ML/MIN/1.73 SQ M.PREDICTED 64.3 mL/min/1.73m*2 Normal >60.0 [facility] Comment on above: Result Comment: [facility]???s estimated glomerular filtration rate (eGFR) will [...] of individuals. Performed By: #### L [id number] ####[facility] ([facility]))[address] [place] [address] Glucose [Mass/Vol] 105 mg/dL High 70-[address] [facility] Comment on above: Performed By: #### L [id number] ####[facility] ([facility]))[address] [place] [address] Potassium [Moles/Vol] 3.9 mmol/L Normal 3.5-5.1 [facility] Comment on above: Performed By: #### L [id number] ####[facility] (BEAKER)[address] [place] [address] Protein [Mass/Vol] 6.7 g/dL Normal 6.0-8.[address] [facility] Comment on above: Performed By: #### L [id number] ####[facility] (BEAKER)[address] [place] [address] Sodium [Moles/Vol] 140 mmol/L Normal 136-[address] [facility] Comment on above: Performed By: #### L [id number] ####[facility] (BEAKER)[address] [place] [address] Urea nitrogen [Mass/Vol] 15 mg/dL Normal 7-25 [facility] Comment on above: Performed By: #### L [id number] ####[facility] (BEAKER)[address] [place] [address] UREA NITROGEN/CREATININE (MASS RATIO) IN SER/PLAS 11.8 Normal [facility] Comment on above: Performed By: #### L [id number] ####[facility] ([employer])[address] [place] [address] FERRITINon 12-22-2022 FERRITIN (NG/ML) IN SER/PLAS 32.0 ng/mL Normal 24.0-336.0 [facility] Comment on above: Performed By: #### L [id number] #### [facility] ([employer] [facility] [address] [place] [address] Follow-Upon 12-22-2022 Follow-Up [id number] Vishal Duke 1960 M Date Provider Department Center 12/22/2022 [id number], OBI TXP None Family History Problem Relation Age of Onset Alzheimer's disease Mother Coronary artery disease Father Family Status - Relation Status Age at Mother Father Level of Service:03440 [place] OFFICE/OUTPATIENT ESTABLISHED MOD MDM 30-39 MIN Reason for Visit and Comments: Kidney Follow-up [] Normal [facility] LIPID PANELon 12-22-2022 CHOL/HDL 2.9 mg/dL Normal [facility] Comment on above: Performed By: #### L [id number] ####[facility] ([facility] [place] [address] Cholesterol [Mass/Vol] 123 mg/dL Normal 120-200 [facility] Comment on above: Performed By: #### L [id number] ####[facility] ([employer])[address] [place] [address] Magnesium [Mass/Vol] 162 mg/dL High 40-149 [facility] Comment on above: Result Comment: TRIG LYCERIDE REFERENCE RANGE: 20 YEARS AND OLDER CARDIOVASCULAR RISK LESS THAN 150 mg/dL LOW RISK 150 TO 199 mg/dL BORDERLINE RISK 200 mg/dL AND GREATER HIGH RISK Performed By: #### L [id number] ####[facility] ([facility])[address] [place] [address] Magnesium [Mass/Vol] 48 mg/dL Normal 0-160 [facility] Comment on above: Performed By: #### L [id number] ####[facility] ([employer])[address] [place] [address] Magnesium [Mass/Vol] 43 mg/dL Normal 23-92 [facility] Comment on above: Performed By: #### L [id number] ####[facility] ([facility]))[address] [place] [address] NON HDL CHOL. (LDL+VLDL) 80 Normal [facility] Comment on above: Performed By: #### L [id number] ####[facility] ([facility] [place] [address] TOTAL VLDL-C 32 mg/dL Normal 0-40 [facility] Comment on above: Performed By: #### L [id number] ####[facility] ([facility]))[address] [place] [address] Labon 12-22-2022 Lab [id number] Vishal Duke 1960 M Date Provider Department Center 12/22/2022 [id number] DRAW STATION KXT Draw [facility] Family History Problem Relation Age of Onset Alzheimer's disease Mother Coronary artery disease Father Family Status - Relation Status Age at Mother Father Normal [facility] MAGNESIUMon 12-22-2022 Magnesium [Mass/Vol] 1.5 mg/dL Low 1.9-2.7 [facility] Comment on above: Performed By: #### L [id number] ####[facility] ([facility] [place] [address] Orders Onlyon 12-22-2022 Orders Only [id number] Vishal Duke 1960 M Date Provider Department Center 12/22/2022 [id number], OBI TXP None Family History Problem Relation Age of Onset Alzheimer's disease Mother Coronary artery disease Father Family Status - Relation Status Age at Mother Father Normal [facility] Orders Only [id number] Vishal Duke D 1960 M Date Provider Department Center 12/22/2022 [id number] [facility] URO [place] Family History Problem Relation Age of Onset Alzheimer's disease Mother Coronary artery disease Father Family Status - Relation Status Age at Mother Father Normal [facility] PHOSPHORUSon 12-22-2022 Magnesium [Mass/Vol] 3.4 mg/dL Normal 2.5-5.0 [facility] Comment on above: Performed By: #### L [id number] #### [facility] (BEAKER) [address] [place] [address] SINGLE ANTIGEN CLASS Ion AB SCREEN COMMENTS No Class I donor specific antibody identified [facility] Comment on above: Performed By: #### L [id number] #### [facility] TISSUE TYPING (HISTOTRAC) [address] [place] [address] [place] CLASS I TESTED DATE [facility] Comment on above: Performed By: #### L [id number] #### [facility] TISSUE TYPING (HISTOTRAC) [address] [place] [address] [facility] SIGNED BY Signed by James farrell CHT([facility]) [place](ASCP), [employer] Transplant Immunology [facility] Comment on above: Result Comment: Clas s I Antigen Microbeads Performed By: #### L [id number] #### [facility] TISSUE TYPING (HISTOTRAC) [address] [place] [address] [facility] Performed By: #### L [id number] ####[facility] TISSUE TYPING (HISTOTRAC)[address] [place] [address] [facility] SINGLE ANTIGEN CLASS 1 TEST METHOD Class I Single Antigen Normal [facility] Comment on above: Performed By: #### L [id number] #### [facility] TISSUE TYPING (HISTOTRAC) [address] [place] [address] [place] SINGLE ANTIGEN CLASS IIon AB SCREEN COMMENTS No Class II donor specific antibody identified [facility] Comment on above: Performed By: #### L [id number] ####[facility] TISSUE TYPING (HISTOTRAC)[address] [place] [address] [place] CLASS II TESTED DATE [facility] Comment on above: Performed By: #### L [id number] ####[facility] TISSUE TYPING (HISTOTRAC)[address] [place], [place] [address] SINGLE ANTIGEN CLASS 2 TEST METHOD Class II Single Antigen Normal [facility] Comment on above: Result Comment: Clas s II Antigen Microbeads Performed By: #### L [id number] ####[facility] TISSUE TYPING (HISTOTRAC)[address] [place] [address] [place] TACROLIMUS LEVELon Tacrolimus (Bld) [Mass/Vol] 7.9 ng/mL Normal 5.0-20.0 [facility] Comment on above: Result Comment: The [employer] Tacrolimus assay is a delayed one-step immunoassay for the quantitative determination of tacrolimus in human whole blood using the chemiluminescent microparticle immunoassay (CMIA) technology with flexible assay protocols, referred to as Chemiflex. Performed By: #### L [id number] ####[facility] (BEAKER)[address] [place] [address] URIC ACIDon 12-22-2022 Magnesium [Mass/Vol] 4.9 mg/dL Normal 4.4-7.6 [facility] Comment on above: Performed By: #### L [id number] ####[facility] (BEAKER)[address] [place] [address] Office Visiton 12-05-2022 Follow-up visit [id number] Vishal Duke 1960 M Date Provider Department Center 12/05/2022 [place] MICHELLE [place] Family History Problem Relation Age of Onset Alzheimer's disease Mother Coronary artery disease Father Family Status - Relation Status Age at Mother Father Level of Service:41597 [place] OFFICE/OUTPATIENT ESTABLISHED LOW MDM 20-29 MIN Normal [facility] Orders Onlyon 12-05-2022 Orders Only [id number] Vishal Duke 1960 M Date Provider Department Center 12/05/2022 LASHONDA MCLE[place] MICHELLE [place] Family History Problem Relation Age of Onset Alzheimer's disease Mother Coronary artery disease Father Family Status - Relation Status Age at Mother Father Normal [facility] FK506 (TACROLIMUS) WHOLE BLO ODon 08-21-2022 Tacrolimus (FK506), Blood 6.0 ng/mL Normal 2.0-20.0 [facility] Comment on above: Result Comment: Trou gh (immediately following transplant) 15.0 . Trough (steady state, 2 weeks or more after transplant): 3.0 - 8.0 . Performed by LC-MS/MS technology. Performed By: #### P HOS, URIC, MG, CMP, DBIL, LIPID #### [facility] [address] [place] [address] Dr. Karla Lagos BK VIRUS PCR QUANTon 023 BKV DNA QUANT PCR PLASMA Negative Normal Negative [facility] Comment on above: Result Comment: No B K DNA detected. . The linear range of the assay is 22 - 100,000,000 IU/mL. Performed By: #### P HOS, URIC, MG, CMP, DBIL, LIPID #### [facility] [address] [place] [address] Dr. Karla Lagos Log10 BKV DNA Plasma Normal [facility] Comment on above: Performed By: #### P HOS, URIC, MG, CMP, DBIL, LIPID #### [facility] [address] [place] [address] Dr. Karla Lagos BILIRUBIN CONJUGATED (DIRECT )on 08-18-2022 BILI, CONJUGATED 0.2 mg/dL Normal 0.0-0.2 [facility] Comment on above: Performed By: #### P HOS, URIC, MG, CMP, DBIL, LIPID #### [facility] [address] [place] [address] Dr. Karla Lagos CBC AUTO DIFFon 08-18-2022 BASO # 0.1 103/ul Normal 0.0-0.1 [facility] Comment on above: Performed By: #### P HOS, URIC, MG, CMP, DBIL, LIPID #### [facility] [address] [place] [address] Dr. Karla Lagos Basophils/100 WBC (Bld) 1.0 % Normal 0.2-2.0 [facility] Comment on above: Performed By: #### P HOS, URIC, MG, CMP, DBIL, LIPID #### [facility] [address] [place] [address] Dr. Karla Lagos EO # 0.1 103/ul Normal 0.0-0.7 [facility] Comment on above: Performed By: #### P HOS, URIC, MG, CMP, DBIL, LIPID #### [facility] [address] [place] [address] Dr. Karla Lagos Eosinophils/100 WBC (Bld) 1.3 % Normal 0.9-7.0 [facility] Comment on above: Performed By: #### P HOS, URIC, MG, CMP, DBIL, LIPID #### [facility] [address] [place] [address] Dr. Karla Lagos Erythrocyte distribution width (RBC) [Ratio] 14.0 % Normal 11.0-15.0 [facility] Comment on above: Performed By: #### P HOS, URIC, MG, CMP, DBIL, LIPID #### [facility] [address] [place] [address] Dr. Karla Lagos Hematocrit (Bld) [Volume fraction] 52.7 % Normal 42.0-54.0 [facility] Comment on above: Performed By: #### P HOS, URIC, MG, CMP, DBIL, LIPID #### [facility] [address] [place] [address] Dr. Karla Lagos Hemoglobin (Bld) [Mass/Vol] 17.0 g/dL Normal 14.0-18.0 [facility] Comment on above: Performed By: #### P HOS, URIC, MG, CMP, DBIL, LIPID #### [facility] [address] [place] [address] Dr. Karla Lagos IG # 0.03 10e3/ul Normal 0.00-0.03 [facility] Comment on above: Performed By: #### P HOS, URIC, MG, CMP, DBIL, LIPID #### [facility] [address] [place] [address] Dr. Karla Lagos IG % 0.4 % Normal 0.0-0.5 [facility] Comment on above: Performed By: #### P HOS, URIC, MG, CMP, DBIL, LIPID #### [facility] [address] [place] [address] Dr. Karla Lagos LYMPH # 1.1 103/ul Critically low 1.2-3.8 [facility] Comment on above: Performed By: #### P HOS, URIC, MG, CMP, DBIL, LIPID #### [facility] [address] [place] [address] Dr. Karla Lagos Lymphocytes/100 WBC (Bld) 16.0 % Critically low 20.5-60.0 [facility] Comment on above: Performed By: #### P HOS, URIC, MG, CMP, DBIL, LIPID #### [facility] [address] [place] [address] Dr. Karla Lagos MANUAL DIFF REQ NO Normal [facility] Comment on above: Performed By: #### P HOS, URIC, MG, CMP, DBIL, LIPID #### [facility] [address] [place] [address] Dr. Karla Lagos MCH (RBC) [Entitic mass] 29.9 pg Normal 25.9-34.0 [facility] Comment on above: Performed By: #### P HOS, URIC, MG, CMP, DBIL, LIPID #### [facility] [address] [place] [address] Dr. Karla Lagos MCHC (RBC) [Mass/Vol] 32.3 g/dL Normal 29.9-35.2 [facility] Comment on above: Performed By: #### P HOS, URIC, MG, CMP, DBIL, LIPID #### [facility] [address] [place] [address] Dr. Karla Lagos MCV (RBC) [Entitic vol] 92.6 fL Normal 80.0-94.0 [facility] Comment on above: Performed By: #### P HOS, URIC, MG, CMP, DBIL, LIPID #### [facility] [address] [place] [address] Dr. Karla Lagos MONO # 0.7 103/ul Normal 0.3-0.8 [facility] Comment on above: Performed By: #### P HOS, URIC, MG, CMP, DBIL, LIPID #### [facility] [address] [place] [address] Dr. Karla Lagos Monocytes/100 WBC (Bld) 10.6 % Normal 1.7-12.0 [facility] Comment on above: Performed By: #### P HOS, URIC, MG, CMP, DBIL, LIPID #### [facility] [address] [place] [address] Dr. Karla Lagos NEUT # 5.0 103/ul Normal 1.4-6.5 [facility] Comment on above: Performed By: #### P HOS, URIC, MG, CMP, DBIL, LIPID #### [facility] [address] [place] [address] Dr. Karla Lagos Neutrophils/100 WBC (Bld) 70.7 % Normal 43.0-75.0 [facility] Comment on above: Performed By: #### P HOS, URIC, MG, CMP, DBIL, LIPID #### [facility] [address] [place] [address] Dr. Karla Lagos Platelet mean volume (Bld) [Entitic vol] 10.3 fL Normal 9.5-13.5 [facility] Comment on above: Performed By: #### P HOS, URIC, MG, CMP, DBIL, LIPID #### [facility] [address] [place] [address] Dr. Karla Lagos PLT 263 103/ul Normal 150-450 [facility] Comment on above: Performed By: #### P HOS, URIC, MG, CMP, DBIL, LIPID #### [facility] [address] [place] [address] Dr. Karla Lagos RBC 5.69 106/ul Normal 4.70-6.10 [facility] Comment on above: Performed By: #### P HOS, URIC, MG, CMP, DBIL, LIPID #### [facility] [address] [place] [address] Dr. Karla Lagos WBC 7.0 103/ul Normal 4.0-11.0 [facility] Comment on above: Performed By: #### P HOS, URIC, MG, CMP, DBIL, LIPID #### [facility] [address] [address] [address] Karla Lagos LIPID PROFILEon 08-18-2022 CHOL-HDL RATIO NORM SEE BELOW Normal [facility] Comment on above: Result Comment: 3.3 - 4.4 LOW RISK 4.4 - 7.1 AVERAGE RISK 7.1 - 11.0 MODERATE RISK >11.0 HIGH RISK Performed By: #### P HOS, URIC, MG, CMP, DBIL, LIPID #### [facility] [address] [address] [address] Karla Lagos Cholesterol [Mass/Vol] 137 mg/dL Normal <=200 [facility] Comment on above: Performed By: #### P HOS, URIC, MG, CMP, DBIL, LIPID #### [facility] [address] [address] [address] Karla Lagos Cholesterol in HDL [Mass/Vol] 45 mg/dL Normal 40-60 [facility] Comment on above: Performed By: #### P HOS, URIC, MG, CMP, DBIL, LIPID #### [facility] [address] [address] [address] Karla Lagos Cholesterol in LDL [Mass/Vol] 59.0 mg/dL Normal [facility] Comment on above: Performed By: #### P HOS, URIC, MG, CMP, DBIL, LIPID #### [facility] [address] [address] [address] Karla Lagos Cholesterol.total/C holesterol in HDL [Mass ratio] 3.0 {ratio} Normal [facility] Comment on above: Performed By: #### P HOS, URIC, MG, CMP, DBIL, LIPID #### [facility] [address] [address] [address] Karla Lagos HDL NORMAL > or = 60 mg/dl - LO W CARDIOVASCULAR RISK <40 mg/dl - HIGH CARDIOVASCULAR RISK Normal [facility] Comment on above: Performed By: #### P HOS, URIC, MG, CMP, DBIL, LIPID #### [facility] [address] [address] [address] Karla Lagos LDL CALC NORMAL SEE BELOW Normal [facility] Comment on above: Result Comment: <100 mg/dl OPTIMAL 100 - 129 mg/dl NEAR OR ABOVE OPTIMAL 130 - 159 mg/dl BORDERLINE HIGH 160 - 189 mg/dl HIGH >190 mg/dl VERY HIGH Performed By: #### P HOS, URIC, MG, CMP, DBIL, LIPID #### [facility] [address] [address] [address] Karla Lagos Triglyceride [Mass/Vol] 165 mg/dL Critically high <=150 [facility] Comment on above: Performed By: #### P HOS, URIC, MG, CMP, DBIL, LIPID #### [facility] [address] [address] [address] Karla Lagos VLDL CALC 33.0 mg/dL Normal [facility] Comment on above: Performed By: #### P HOS, URIC, MG, CMP, DBIL, LIPID #### [facility] [address] [place] [address] Dr. Karla Lagos MAGNESIUMon 08-18-2022 Magnesium [Mass/Vol] 1.7 mg/dL Critically low 1.8-2.4 [facility] Comment on above: Performed By: #### P HOS, URIC, MG, CMP, DBIL, LIPID #### [facility] [address] [place] [address] Dr. Karla Lagos PHOSPHORUSon 08-18-2022 Phosphate [Mass/Vol] 3.6 mg/dL Normal 2.6-4.7 [facility] Comment on above: Performed By: #### P HOS, URIC, MG, CMP, DBIL, LIPID #### [facility] [address] [place] [address] Dr. Karla Lagos PROF 14(COMP METB)on 023 Albumin [Mass/Vol] 4.0 g/dL Normal 3.4-5.0 [facility] Comment on above: Performed By: #### P HOS, URIC, MG, CMP, DBIL, LIPID #### [facility] [address] [place] [address] Dr. Karla Lagos Albumin/Globulin [Mass ratio] 1.1 {ratio} Normal [facility] Comment on above: Performed By: #### P HOS, URIC, MG, CMP, DBIL, LIPID #### [facility] [address] [place] [address] Dr. Karla Lagos ALP [Catalytic activity/Vol] 96 U/L Normal 46-116 [facility] Comment on above: Performed By: #### P HOS, URIC, MG, CMP, DBIL, LIPID #### [facility] [address] [address] [address] Karla Lagos ALT [Catalytic activity/Vol] 42 U/L Normal 16-63 [facility] Comment on above: Performed By: #### P HOS, URIC, MG, CMP, DBIL, LIPID #### [facility] [address] [place] [address] Dr. Karla Lagos Anion gap [Moles/Vol] 12.9 mmol/L Normal [facility] Comment on above: Performed By: #### P HOS, URIC, MG, CMP, DBIL, LIPID #### [facility] [address] [place] [address] Dr. Karla Lagos AST [Catalytic activity/Vol] 22 U/L Normal 15-37 [facility] Comment on above: Performed By: #### P HOS, URIC, MG, CMP, DBIL, LIPID #### [facility] [address] [place] [address] Dr. Karla Lagos Bilirubin [Mass/Vol] 0.7 mg/dL Normal 0.2-1.0 [facility] Comment on above: Performed By: #### P HOS, URIC, MG, CMP, DBIL, LIPID #### [facility] [address] [place] [address] Dr. Karla Lagos Calcium [Mass/Vol] 9.4 mg/dL Normal 8.5-10.1 [facility] Comment on above: Performed By: #### P HOS, URIC, MG, CMP, DBIL, LIPID #### [facility] [address] [place] [address] Dr. Karla Lagos Chloride [Moles/Vol] 103 mmol/L Normal 98-107 [facility] Comment on above: Performed By: #### P HOS, URIC, MG, CMP, DBIL, LIPID #### [facility] [address] [place] [address] Dr. Karla Laogs CO2 [Moles/Vol] 27.8 mmol/L Normal 21.0-32.0 [facility] Comment on above: Performed By: #### P HOS, URIC, MG, CMP, DBIL, LIPID #### [facility] [address] [place] [address] Dr. Karla Lagos Creatinine [Mass/Vol] 1.28 mg/dL Normal 0.70-1.30 [facility] Comment on above: Performed By: #### P HOS, URIC, MG, CMP, DBIL, LIPID #### [facility] [address] [place] [address] Dr. Karla Lagos EGFR-AF ENGLISH >60 Normal >=60 [facility] Comment on above: Performed By: #### P HOS, URIC, MG, CMP, DBIL, LIPID #### [facility] [address] [place] [address] Dr. Karla Lagos EGFR-NON AF ENGLISH 57 mL/min/1.73m2 Critically low >=60 [facility] Comment on above: Performed By: #### P HOS, URIC, MG, CMP, DBIL, LIPID #### [facility] [address] [place] [address] Dr. Karla Lagos Globulin (S) [Mass/Vol] 3.5 g/dL Normal [facility] Comment on above: Performed By: #### P HOS, URIC, MG, CMP, DBIL, LIPID #### [facility] [address] [place] [address] Dr. Karla Lagos Glucose [Mass/Vol] 123 mg/dL Critically high 74-106 [facility] Comment on above: Performed By: #### P HOS, URIC, MG, CMP, DBIL, LIPID #### [facility] [address] [place] [address] Dr. Karla Lagos Potassium [Moles/Vol] 4.7 mmol/L Normal 3.5-5.1 [facility] Comment on above: Performed By: #### P HOS, URIC, MG, CMP, DBIL, LIPID #### [facility] [address] [place] [address] Dr. Karla Lagos Protein [Mass/Vol] 7.5 g/dL Normal 6.4-8.2 [facility] Comment on above: Performed By: #### P HOS, URIC, MG, CMP, DBIL, LIPID #### [facility] [address] [place] [address] Dr. Karla Lagos Sodium [Moles/Vol] 139 mmol/L Normal 136-145 [facility] Comment on above: Performed By: #### P HOS, URIC, MG, CMP, DBIL, LIPID #### [facility] [address] [place] [address] Dr. Karla Lagos Urea nitrogen [Mass/Vol] 22.0 mg/dL Critically high 7.0-18.0 [facility] Comment on above: Performed By: #### P HOS, URIC, MG, CMP, DBIL, LIPID #### [facility] [address] [place] [address] Dr. Karla Lagos Urea nitrogen/Creatinine [Mass ratio] 17.2 mg/mg Normal [facility] Comment on above: Performed By: #### P HOS, URIC, MG, CMP, DBIL, LIPID #### [facility] [address] [place] [address] Dr. Karla Lagos URIC ACID SERUMon 08-18-2022 Urate [Mass/Vol] 4.8 mg/dL Normal 3.5-7.2 [facility] Comment on above: Performed By: #### P HOS, URIC, MG, CMP, DBIL, LIPID #### [facility] [address] [place] [address] Dr. Karla Lagos BK VIRUS PCR QUANTon 023 BKV DNA QUANT PCR PLASMA Negative Normal Negative [facility] Comment on above: Result Comment: No B K DNA detected. . The linear range of the assay is 22 - 100,000,000 IU/mL. Performed By: #### B KVIRUS #### [facility] [address] [place] [address] Dr. Karla Lagos Log10 BKV DNA Plasma Normal [facility] Comment on above: Performed By: #### B KVIRUS #### [facility] [address] [place] [address] Dr. Karla Lagos FK506 (TACROLIMUS) WHOLE BLO ODon 07-21-2022 Tacrolimus (FK506), Blood 6.1 ng/mL Normal 2.0-20.0 [facility] Comment on above: Result Comment: Trou gh (immediately following transplant) 15.0 . Trough (steady state, 2 weeks or more after transplant): 3.0 - 8.0 . Performed by LC-MS/MS technology. Performed By: #### P HOS, URIC, MG, CMP, DBIL, LIPID #### [facility] [address] [place] [address] Dr. Karla Lagos BILIRUBIN CONJUGATED (DIRECT )on 07-19-2022 BILI, CONJUGATED 0.2 mg/dL Normal 0.0-0.2 [facility] Comment on above: Performed By: #### P HOS, URIC, MG, CMP, DBIL, LIPID #### [facility] [address] [place] [address] Dr. Karla Lagos CBC AUTO DIFFon 07-19-2022 BASO # 0.0 103/ul Normal 0.0-0.1 [facility] Comment on above: Performed By: #### P HOS, URIC, MG, CMP, DBIL, LIPID #### [facility] [address] [place] [address] Dr. Karla Lagos Basophils/100 WBC (Bld) 0.4 % Normal 0.2-2.0 [facility] Comment on above: Performed By: #### P HOS, URIC, MG, CMP, DBIL, LIPID #### [facility] [address] [place] [address] Dr. Karal Lagos EO # 0.1 103/ul Normal 0.0-0.7 [facility] Comment on above: Performed By: #### P HOS, URIC, MG, CMP, DBIL, LIPID #### [facility] [address] [place] [address] Dr. Karla Lagos Eosinophils/100 WBC (Bld) 1.6 % Normal 0.9-7.0 [facility] Comment on above: Performed By: #### P HOS, URIC, MG, CMP, DBIL, LIPID #### [facility] [address] [place] [address] Dr. Karla Lagos Erythrocyte distribution width (RBC) [Ratio] 14.2 % Normal 11.0-15.0 [facility] Comment on above: Performed By: #### P HOS, URIC, MG, CMP, DBIL, LIPID #### [facility] [address] [place] [address] Dr. Karla Lagos Hematocrit (Bld) [Volume fraction] 49.8 % Normal 42.0-54.0 [facility] Comment on above: Performed By: #### P HOS, URIC, MG, CMP, DBIL, LIPID #### [facility] [address] [place] [address] Dr. Karla Lagos Hemoglobin (Bld) [Mass/Vol] 16.6 g/dL Normal 14.0-18.0 [facility] Comment on above: Performed By: #### P HOS, URIC, MG, CMP, DBIL, LIPID #### [facility] [address] [place] [address] Dr. Karla Lagos IG # 0.03 10e3/ul Normal 0.00-0.03 [facility] Comment on above: Performed By: #### P HOS, URIC, MG, CMP, DBIL, LIPID #### [facility] [address] [place] [address] Dr. Karla Lagos IG % 0.4 % Normal 0.0-0.5 [facility] Comment on above: Performed By: #### P HOS, URIC, MG, CMP, DBIL, LIPID #### [facility] [address] [place] [address] Dr. Karla Lagos LYMPH # 1.1 103/ul Critically low 1.2-3.8 [facility] Comment on above: Performed By: #### P HOS, URIC, MG, CMP, DBIL, LIPID #### [facility] [address] [place] [address] Dr. Karla Lagos Lymphocytes/100 WBC (Bld) 14.9 % Critically low 20.5-60.0 [facility] Comment on above: Performed By: #### P HOS, URIC, MG, CMP, DBIL, LIPID #### [facility] [address] [place] [address] Dr. Karla Lagos MANUAL DIFF REQ NO Normal [facility] Comment on above: Performed By: #### P HOS, URIC, MG, CMP, DBIL, LIPID #### [facility] [address] [place] [address] Dr. Karla Lagos MCH (RBC) [Entitic mass] 30.4 pg Normal 25.9-34.0 [facility] Comment on above: Performed By: #### P HOS, URIC, MG, CMP, DBIL, LIPID #### [facility] [address] [place] [address] Dr. Karla Lagos MCHC (RBC) [Mass/Vol] 33.3 g/dL Normal 29.9-35.2 [facility] Comment on above: Performed By: #### P HOS, URIC, MG, CMP, DBIL, LIPID #### [facility] [address] [place] [address] Dr. Karla Lagos MCV (RBC) [Entitic vol] 91.2 fL Normal 80.0-94.0 [facility] Comment on above: Performed By: #### P HOS, URIC, MG, CMP, DBIL, LIPID #### [facility] [address] [place] [address] Dr. Karla Lagos MONO # 0.7 103/ul Normal 0.3-0.8 [facility] Comment on above: Performed By: #### P HOS, URIC, MG, CMP, DBIL, LIPID #### [facility] [address] [place] [address] Dr. Karla Lagos Monocytes/100 WBC (Bld) 10.3 % Normal 1.7-12.0 [facility] Comment on above: Performed By: #### P HOS, URIC, MG, CMP, DBIL, LIPID #### [facility] [address] [place] [address] Dr. Karla Lagos NEUT # 5.1 103/ul Normal 1.4-6.5 [facility] Comment on above: Performed By: #### P HOS, URIC, MG, CMP, DBIL, LIPID #### [facility] [address] [place] [address] Dr. Karla Lagos Neutrophils/100 WBC (Bld) 72.4 % Normal 43.0-75.0 [facility] Comment on above: Performed By: #### P HOS, URIC, MG, CMP, DBIL, LIPID #### [facility] [address] [place] [address] Dr. Karla Lagos Platelet mean volume (Bld) [Entitic vol] 10.4 fL Normal 9.5-13.5 [facility] Comment on above: Performed By: #### P HOS, URIC, MG, CMP, DBIL, LIPID #### [facility] [address] [place] [address] Dr. Karla Lagos PLT 248 103/ul Normal 150-450 [facility] Comment on above: Performed By: #### P HOS, URIC, MG, CMP, DBIL, LIPID #### [facility] [address] [place] [address] Dr. Karla Lagos RBC 5.46 106/ul Normal 4.70-6.10 [facility] Comment on above: Performed By: #### P HOS, URIC, MG, CMP, DBIL, LIPID #### [facility] [address] [place] [address] Dr. Karla Lagos WBC 7.1 103/ul Normal 4.0-11.0 [facility] Comment on above: Performed By: #### P HOS, URIC, MG, CMP, DBIL, LIPID #### [facility] [address] [place] [address] Dr. Karla Lagos LIPID PROFILEon 07-19-2022 CHOL-HDL RATIO NORM SEE BELOW Normal [facility] Comment on above: Result Comment: 3.3 - 4.4 LOW RISK 4.4 - 7.1 AVERAGE RISK 7.1 - 11.0 MODERATE RISK >11.0 HIGH RISK Performed By: #### P HOS, URIC, MG, CMP, DBIL, LIPID #### [facility] [address] [address] [address] Karla Lagos Cholesterol [Mass/Vol] 130 mg/dL Normal <=200 [facility] Comment on above: Performed By: #### P HOS, URIC, MG, CMP, DBIL, LIPID #### [facility] [address] [address] [address] Karla Lagos Cholesterol in HDL [Mass/Vol] 43 mg/dL Normal 40-60 [facility] Comment on above: Performed By: #### P HOS, URIC, MG, CMP, DBIL, LIPID #### [facility] [address] [place] [address] Dr. Karla Lagos Cholesterol in LDL [Mass/Vol] 61.8 mg/dL Normal [facility] Comment on above: Performed By: #### P HOS, URIC, MG, CMP, DBIL, LIPID #### [facility] [address] [address] [address] Karla Lagos Cholesterol.total/C holesterol in HDL [Mass ratio] 3.0 {ratio} Normal [facility] Comment on above: Performed By: #### P HOS, URIC, MG, CMP, DBIL, LIPID #### [facility] [address] [address] [address] Karla Lagos HDL NORMAL > or = 60 mg/dl - LO W CARDIOVASCULAR RISK <40 mg/dl - HIGH CARDIOVASCULAR RISK Normal [facility] Comment on above: Performed By: #### P HOS, URIC, MG, CMP, DBIL, LIPID #### [facility] [address] [address] [address] Karla Lagos LDL CALC NORMAL SEE BELOW Normal [facility] Comment on above: Result Comment: <100 mg/dl OPTIMAL 100 - 129 mg/dl NEAR OR ABOVE OPTIMAL 130 - 159 mg/dl BORDERLINE HIGH 160 - 189 mg/dl HIGH >190 mg/dl VERY HIGH Performed By: #### P HOS, URIC, MG, CMP, DBIL, LIPID #### [facility] Laboratory [address] [address] [address] Karla Lagos Triglyceride [Mass/Vol] 126 mg/dL Normal <=150 [facility] Comment on above: Performed By: #### P HOS, URIC, MG, CMP, DBIL, LIPID #### [facility] [address] [place] [address] Dr. Karla Lagos VLDL CALC 25.2 mg/dL Normal [facility] Comment on above: Performed By: #### P HOS, URIC, MG, CMP, DBIL, LIPID #### [facility] [address] [place] [address] Dr. Karla Lagos MAGNESIUMon 07-19-2022 Magnesium [Mass/Vol] 1.7 mg/dL Critically low 1.8-2.4 [facility] Comment on above: Performed By: #### P HOS, URIC, MG, CMP, DBIL, LIPID #### [facility] [address] [place] [address] Dr. Karla Lagos PHOSPHORUSon 07-19-2022 Phosphate [Mass/Vol] 3.1 mg/dL Normal 2.6-4.7 [facility] Comment on above: Performed By: #### P HOS, URIC, MG, CMP, DBIL, LIPID #### [facility] [address] [place] [address] Dr. Karla Lagos PROF 14(COMP METB)on 023 Albumin [Mass/Vol] 4.0 g/dL Normal 3.4-5.0 [facility] Comment on above: Performed By: #### P HOS, URIC, MG, CMP, DBIL, LIPID #### [facility] [address] [place] [address] Dr. Karla Lagos Albumin/Globulin [Mass ratio] 1.3 {ratio} Normal [facility] Comment on above: Performed By: #### P HOS, URIC, MG, CMP, DBIL, LIPID #### [facility] [address] [place] [address] Dr. Karla Lagos ALP [Catalytic activity/Vol] 79 U/L Normal 46-116 [facility] Comment on above: Performed By: #### P HOS, URIC, MG, CMP, DBIL, LIPID #### [facility] [address] [address] [address] Karla Lagos ALT [Catalytic activity/Vol] 40 U/L Normal 16-63 [facility] Comment on above: Performed By: #### P HOS, URIC, MG, CMP, DBIL, LIPID #### [facility] [address] [place] [address] Dr. Karla Lagos Anion gap [Moles/Vol] 12.8 mmol/L Normal [facility] Comment on above: Performed By: #### P HOS, URIC, MG, CMP, DBIL, LIPID #### [facility] [address] [place] [address] Dr. Karla Lagos AST [Catalytic activity/Vol] 24 U/L Normal 15-37 [facility] Comment on above: Performed By: #### P HOS, URIC, MG, CMP, DBIL, LIPID #### [facility] [address] [place] [address] Dr. Karla Lagos Bilirubin [Mass/Vol] 0.7 mg/dL Normal 0.2-1.0 [facility] Comment on above: Performed By: #### P HOS, URIC, MG, CMP, DBIL, LIPID #### [facility] [address] [place] [address] Dr. Karla Lagos Calcium [Mass/Vol] 9.3 mg/dL Normal 8.5-10.1 [facility] Comment on above: Performed By: #### P HOS, URIC, MG, CMP, DBIL, LIPID #### [facility] [address] [place] [address] Dr. Karla Lagos Chloride [Moles/Vol] 105 mmol/L Normal 98-107 [facility] Comment on above: Performed By: #### P HOS, URIC, MG, CMP, DBIL, LIPID #### [facility] [address] [place] [address] Dr. Karla Lagos CO2 [Moles/Vol] 28.4 mmol/L Normal 21.0-32.0 [facility] Comment on above: Performed By: #### P HOS, URIC, MG, CMP, DBIL, LIPID #### [facility] [address] [place] [address] Dr. Karla Lagos Creatinine [Mass/Vol] 1.23 mg/dL Normal 0.70-1.30 [facility] Comment on above: Performed By: #### P HOS, URIC, MG, CMP, DBIL, LIPID #### [facility] [address] [place] [address] Dr. Karla Lagos EGFR-AF ENGLISH >60 Normal >=60 [facility] Comment on above: Performed By: #### P HOS, URIC, MG, CMP, DBIL, LIPID #### [facility] [address] [place] [address] Dr. Karla Lagos EGFR-NON AF ENGLISH =60 Normal >=60 [facility] Comment on above: Performed By: #### P HOS, URIC, MG, CMP, DBIL, LIPID #### [facility] [address] [place] [address] Dr. Karla Lagos Globulin (S) [Mass/Vol] 3.1 g/dL Normal [facility] Comment on above: Performed By: #### P HOS, URIC, MG, CMP, DBIL, LIPID #### [facility] [address] [place] [address] Dr. Karla Lagos Glucose [Mass/Vol] 114 mg/dL Critically high 74-106 [facility] Comment on above: Performed By: #### P HOS, URIC, MG, CMP, DBIL, LIPID #### [facility] [address] [place] [address] Dr. Karla Lagos Potassium [Moles/Vol] 4.2 mmol/L Normal 3.5-5.1 [facility] Comment on above: Performed By: #### P HOS, URIC, MG, CMP, DBIL, LIPID #### [facility] [address] [place] [address] Dr. Karla Lagos Protein [Mass/Vol] 7.1 g/dL Normal 6.4-8.2 [facility] Comment on above: Performed By: #### P HOS, URIC, MG, CMP, DBIL, LIPID #### [facility] [address] [address] [address] Karla Lagos Sodium [Moles/Vol] 142 mmol/L Normal 136-145 [facility] Comment on above: Performed By: #### P HOS, URIC, MG, CMP, DBIL, LIPID #### [facility] [address] [place] [address] Dr. Karla Lagos Urea nitrogen [Mass/Vol] 15.0 mg/dL Normal 7.0-18.0 [facility] Comment on above: Performed By: #### P HOS, URIC, MG, CMP, DBIL, LIPID #### [facility] [address] [place] [address] Dr. Karla Lagos Urea nitrogen/Creatinine [Mass ratio] 12.2 mg/mg Normal [facility] Comment on above: Performed By: #### P HOS, URIC, MG, CMP, DBIL, LIPID #### [facility] [address] [place] [address] Dr. Karla Lagos URIC ACID SERUMon 07-19-2022 Urate [Mass/Vol] 5.1 mg/dL Normal 3.5-7.2 [facility] Comment on above: Performed By: #### P HOS, URIC, MG, CMP, DBIL, LIPID #### [facility] [address] [place] [address] Dr. Karla Lagos FK506 (TACROLIMUS) WHOLE BLO ODon 06-04-2022 Tacrolimus (FK506), Blood 5.1 ng/mL Normal 2.0-20.0 [facility] Comment on above: Result Comment: Trou gh (immediately following transplant) 15.0 . Trough (steady state, 2 weeks or more after transplant): 3.0 - 8.0 . Performed by LC-MS/MS technology. Performed By: #### P HOS, URIC, MG, CMP, DBIL, LIPID #### [facility] [address] [place] [address] Dr. Karla Lagos BK VIRUS PCR QUANTon 023 BKV DNA QUANT PCR PLASMA Negative Normal Negative [facility] Comment on above: Result Comment: No B K DNA detected. . The linear range of the assay is 22 - 100,000,000 IU/mL. Performed By: #### P HOS, URIC, MG, CMP, DBIL, LIPID #### [facility] [address] [place] [address] Dr. Karla Lagos Log10 BKV DNA Plasma Normal [facility] Comment on above: Performed By: #### P HOS, URIC, MG, CMP, DBIL, LIPID #### [facility] [address] [place] [address] Dr. Karla Lagos BILIRUBIN CONJUGATED (DIRECT )on 06-01-2022 BILI, CONJUGATED 0.1 mg/dL Normal 0.0-0.2 [facility] Comment on above: Performed By: #### P HOS, URIC, MG, CMP, DBIL, LIPID #### [facility] [address] [place] [address] Dr. Karla Lagos CBC AUTO DIFFon 06-01-2022 BASO # 0.1 103/ul Normal 0.0-0.1 [facility] Comment on above: Performed By: #### P HOS, URIC, MG, CMP, DBIL, LIPID #### [facility] [address] [place] [address] Dr. Karla Lagos Basophils/100 WBC (Bld) 0.9 % Normal 0.2-2.0 [facility] Comment on above: Performed By: #### P HOS, URIC, MG, CMP, DBIL, LIPID #### [facility] [address] [place] [address] Dr. Karla Lagos EO # 0.1 103/ul Normal 0.0-0.7 [facility] Comment on above: Performed By: #### P HOS, URIC, MG, CMP, DBIL, LIPID #### [facility] [address] [place] [address] Dr. Karla Lagos Eosinophils/100 WBC (Bld) 1.6 % Normal 0.9-7.0 [facility] Comment on above: Performed By: #### P HOS, URIC, MG, CMP, DBIL, LIPID #### [facility] [address] [place] [address] Dr. aKrla Lagos Erythrocyte distribution width (RBC) [Ratio] 13.4 % Normal 11.0-15.0 [facility] Comment on above: Performed By: #### P HOS, URIC, MG, CMP, DBIL, LIPID #### [facility] [address] [place] [address] Dr. Karla Lagos Hematocrit (Bld) [Volume fraction] 46.3 % Normal 42.0-54.0 [facility] Comment on above: Performed By: #### P HOS, URIC, MG, CMP, DBIL, LIPID #### [facility] [address] [place] [address] Dr. Karla Lagos Hemoglobin (Bld) [Mass/Vol] 15.4 g/dL Normal 14.0-18.0 [facility] Comment on above: Performed By: #### P HOS, URIC, MG, CMP, DBIL, LIPID #### [facility] [address] [place] [address] Dr. Karla Lagos IG # 0.10 10e3/ul Critically high 0.00-0.03 [facility] Comment on above: Performed By: #### P HOS, URIC, MG, CMP, DBIL, LIPID #### [facility] [address] [place] [address] Dr. Karla Lagos IG % 1.3 % Critically high 0.0-0.5 [facility] Comment on above: Performed By: #### P HOS, URIC, MG, CMP, DBIL, LIPID #### [facility] [address] [place] [address] Dr. Karla Lagos LYMPH # 1.0 103/ul Critically low 1.2-3.8 [facility] Comment on above: Performed By: #### P HOS, URIC, MG, CMP, DBIL, LIPID #### [facility] [address] [place] [address] Dr. Karla Lagos Lymphocytes/100 WBC (Bld) 12.8 % Critically low 20.5-60.0 [facility] Comment on above: Performed By: #### P HOS, URIC, MG, CMP, DBIL, LIPID #### [facility] [address] [place] [address] Dr. Karla Lagos MANUAL DIFF REQ NO Normal [facility] Comment on above: Performed By: #### P HOS, URIC, MG, CMP, DBIL, LIPID #### [facility] [address] [place] [address] Dr. Karla Lagos MCH (RBC) [Entitic mass] 30.4 pg Normal 25.9-34.0 [facility] Comment on above: Performed By: #### P HOS, URIC, MG, CMP, DBIL, LIPID #### [facility] [address] [place] [address] Dr. Karla Lagos MCHC (RBC) [Mass/Vol] 33.3 g/dL Normal 29.9-35.2 [facility] Comment on above: Performed By: #### P HOS, URIC, MG, CMP, DBIL, LIPID #### [facility] [address] [place] [address] Dr. Karla Lagos MCV (RBC) [Entitic vol] 91.3 fL Normal 80.0-94.0 [facility] Comment on above: Performed By: #### P HOS, URIC, MG, CMP, DBIL, LIPID #### [facility] [address] [place] [address] Dr. Karla Lagos MONO # 0.6 103/ul Normal 0.3-0.8 [facility] Comment on above: Performed By: #### P HOS, URIC, MG, CMP, DBIL, LIPID #### [facility] [address] [place] [address] Dr. Karla Lagos Monocytes/100 WBC (Bld) 8.6 % Normal 1.7-12.0 [facility] Comment on above: Performed By: #### P HOS, URIC, MG, CMP, DBIL, LIPID #### [facility] [address] [place] [address] Dr. Karla Lagos NEUT # 5.5 103/ul Normal 1.4-6.5 [facility] Comment on above: Performed By: #### P HOS, URIC, MG, CMP, DBIL, LIPID #### [facility] [address] [place] [address] Dr. Karla Lagos Neutrophils/100 WBC (Bld) 74.8 % Normal 43.0-75.0 [facility] Comment on above: Performed By: #### P HOS, URIC, MG, CMP, DBIL, LIPID #### [facility] [address] [place] [address] Dr. Karla Lagos Platelet mean volume (Bld) [Entitic vol] 9.6 fL Normal 9.5-13.5 [facility] Comment on above: Performed By: #### P HOS, URIC, MG, CMP, DBIL, LIPID #### [facility] [address] [place] [address] Dr. Karla Lagos PLT 312 103/ul Normal 150-450 [facility] Comment on above: Performed By: #### P HOS, URIC, MG, CMP, DBIL, LIPID #### [facility] [address] [place] [address] Dr. Karla Lagos RBC 5.07 106/ul Normal 4.70-6.10 [facility] Comment on above: Performed By: #### P HOS, URIC, MG, CMP, DBIL, LIPID #### [facility] [address] [place] [address] Dr. Karla Lagos WBC 7.4 103/ul Normal 4.0-11.0 [facility] Comment on above: Performed By: #### P HOS, URIC, MG, CMP, DBIL, LIPID #### [facility] [address] [place] [address] Dr. Karla Lagos LIPID PROFILEon 06-01-2022 CHOL-HDL RATIO NORM SEE BELOW Normal [facility] Comment on above: Result Comment: 3.3 - 4.4 LOW RISK 4.4 - 7.1 AVERAGE RISK 7.1 - 11.0 MODERATE RISK >11.0 HIGH RISK Performed By: #### P HOS, URIC, MG, CMP, DBIL, LIPID #### [facility] [address] [place] [address] Dr. Karla Lagos Cholesterol [Mass/Vol] 108 mg/dL Normal <=200 [facility] Comment on above: Performed By: #### P HOS, URIC, MG, CMP, DBIL, LIPID #### [facility] [address] [address] [address] Karla Lagos Cholesterol in HDL [Mass/Vol] 36 mg/dL Critically low 40-60 [facility] Comment on above: Performed By: #### P HOS, URIC, MG, CMP, DBIL, LIPID #### [facility] [address] [address] [address] Karla Lagos Cholesterol in LDL [Mass/Vol] 58.4 mg/dL Normal [facility] Comment on above: Performed By: #### P HOS, URIC, MG, CMP, DBIL, LIPID #### [facility] [address] [place] [address] Dr. Karla Lagos Cholesterol.total/C holesterol in HDL [Mass ratio] 3.0 {ratio} Normal [facility] Comment on above: Performed By: #### P HOS, URIC, MG, CMP, DBIL, LIPID #### [facility] [address] [address] [address] Karla Lagos HDL NORMAL > or = 60 mg/dl - LO W CARDIOVASCULAR RISK <40 mg/dl - HIGH CARDIOVASCULAR RISK Normal [facility] Comment on above: Performed By: #### P HOS, URIC, MG, CMP, DBIL, LIPID #### [facility] [address] [address] [address] Karla Lagos LDL CALC NORMAL SEE BELOW Normal [facility] Comment on above: Result Comment: <100 mg/dl OPTIMAL 100 - 129 mg/dl NEAR OR ABOVE OPTIMAL 130 - 159 mg/dl BORDERLINE HIGH 160 - 189 mg/dl HIGH >190 mg/dl VERY HIGH Performed By: #### P HOS, URIC, MG, CMP, DBIL, LIPID #### [facility] [address] [address] [address] Karla Lagos Triglyceride [Mass/Vol] 68 mg/dL Normal <=150 [facility] Comment on above: Performed By: #### P HOS, URIC, MG, CMP, DBIL, LIPID #### [facility] [address] [address] [address] Karla Lagos VLDL CALC 13.6 mg/dL Normal [facility] Comment on above: Performed By: #### P HOS, URIC, MG, CMP, DBIL, LIPID #### [facility] [address] [address] [address] Karla Lagos MAGNESIUMon 06-01-2022 Magnesium [Mass/Vol] 1.7 mg/dL Critically low 1.8-2.4 [facility] Comment on above: Performed By: #### P HOS, URIC, MG, CMP, DBIL, LIPID #### [facility] [address] [address] [address] Karla Lagos PHOSPHORUSon 06-01-2022 Phosphate [Mass/Vol] 3.7 mg/dL Normal 2.6-4.7 [facility] Comment on above: Performed By: #### P HOS, URIC, MG, CMP, DBIL, LIPID #### [facility] [address] [place] [address] Dr. Karla Lagos PROF 14(COMP METB)on 023 Albumin [Mass/Vol] 3.4 g/dL Normal 3.4-5.0 [facility] Comment on above: Performed By: #### P HOS, URIC, MG, CMP, DBIL, LIPID #### [facility] [address] [place] [address] Dr. Karla Lagos Albumin/Globulin [Mass ratio] 1.0 {ratio} Normal [facility] Comment on above: Performed By: #### P HOS, URIC, MG, CMP, DBIL, LIPID #### [facility] [address] [place] [address] Dr. Karla Lagos ALP [Catalytic activity/Vol] 92 U/L Normal 46-116 [facility] Comment on above: Performed By: #### P HOS, URIC, MG, CMP, DBIL, LIPID #### [facility] [address] [place] [address] Dr. Karla Lagos ALT [Catalytic activity/Vol] 33 U/L Normal 16-63 [facility] Comment on above: Performed By: #### P HOS, URIC, MG, CMP, DBIL, LIPID #### [facility] [address] [address] [address] Karla Lagos Anion gap [Moles/Vol] 12.7 mmol/L Normal [facility] Comment on above: Performed By: #### P HOS, URIC, MG, CMP, DBIL, LIPID #### [facility] [address] [place] [address] Dr. Karla Lagos AST [Catalytic activity/Vol] 21 U/L Normal 15-37 [facility] Comment on above: Performed By: #### P HOS, URIC, MG, CMP, DBIL, LIPID #### [facility] [address] [place] [address] Dr. Karla Lagos Bilirubin [Mass/Vol] 0.4 mg/dL Normal 0.2-1.0 [facility] Comment on above: Performed By: #### P HOS, URIC, MG, CMP, DBIL, LIPID #### [facility] [address] [place] [address] Dr. Karla Lagos Calcium [Mass/Vol] 9.0 mg/dL Normal 8.5-10.1 [facility] Comment on above: Performed By: #### P HOS, URIC, MG, CMP, DBIL, LIPID #### [facility] [address] [place] [address] Dr. Karla Lagos Chloride [Moles/Vol] 104 mmol/L Normal 98-107 [facility] Comment on above: Performed By: #### P HOS, URIC, MG, CMP, DBIL, LIPID #### [facility] [address] [place] [address] Dr. Karla Lagos CO2 [Moles/Vol] 28.7 mmol/L Normal 21.0-32.0 [facility] Comment on above: Performed By: #### P HOS, URIC, MG, CMP, DBIL, LIPID #### [facility] [address] [place] [address] Dr. Karla Lagos Creatinine [Mass/Vol] 1.15 mg/dL Normal 0.70-1.30 [facility] Comment on above: Performed By: #### P HOS, URIC, MG, CMP, DBIL, LIPID #### [facility] [address] [place] [address] Dr. Karla Lagos EGFR-AF ENGLISH >60 Normal >=60 [facility] Comment on above: Performed By: #### P HOS, URIC, MG, CMP, DBIL, LIPID #### [facility] [address] [place] [address] Dr. Karla Lagos EGFR-NON AF ENGLISH >60 Normal >=60 [facility] Comment on above: Performed By: #### P HOS, URIC, MG, CMP, DBIL, LIPID #### [facility] [address] [place] [address] Dr. Karla Lagos Globulin (S) [Mass/Vol] 3.3 g/dL Normal [facility] Comment on above: Performed By: #### P HOS, URIC, MG, CMP, DBIL, LIPID #### [facility] [address] [place] [address] Dr. Karla Lagos Glucose [Mass/Vol] 112 mg/dL Critically high 74-106 [facility] Comment on above: Performed By: #### P HOS, URIC, MG, CMP, DBIL, LIPID #### [facility] [address] [place] [address] Dr. Karla Lagos Potassium [Moles/Vol] 4.4 mmol/L Normal 3.5-5.1 [facility] Comment on above: Performed By: #### P HOS, URIC, MG, CMP, DBIL, LIPID #### [facility] [address] [place] [address] Dr. Karla Lagos Protein [Mass/Vol] 6.7 g/dL Normal 6.4-8.2 [facility] Comment on above: Performed By: #### P HOS, URIC, MG, CMP, DBIL, LIPID #### [facility] [address] [place] [address] Dr. Karla Lagos Sodium [Moles/Vol] 141 mmol/L Normal 136-145 [facility] Comment on above: Performed By: #### P HOS, URIC, MG, CMP, DBIL, LIPID #### [facility] [address] [address] [address] Karla Lagos Urea nitrogen [Mass/Vol] 17.0 mg/dL Normal 7.0-18.0 [facility] Comment on above: Performed By: #### P HOS, URIC, MG, CMP, DBIL, LIPID #### [facility] [address] [address] [address] Karla Lagos Urea nitrogen/Creatinine [Mass ratio] 14.8 mg/mg Normal [facility] Comment on above: Performed By: #### P HOS, URIC, MG, CMP, DBIL, LIPID #### [facility] [address] [place] [address] Dr. Karla Lagos URIC ACID SERUMon 06-01-2022 Urate [Mass/Vol] 5.3 mg/dL Normal 3.5-7.2 [facility] Comment on above: Performed By: #### P HOS, URIC, MG, CMP, DBIL, LIPID #### [facility] [address] [place] [address] Dr. Karla Lagos NM STRESS/REST MULTIon 05-30 NM STRESS/REST MULTI Patient: VISHAL DUKEJessica Exam Date: 05/30/2022 : 1960 Gender:M Ordering : DR FEDERICO CHESTER M.D. Admission #: [id number] Family : Order #: [id number] CLICK HERE TO VIEW EXAM RADIOLOGY REPORT [...] Basal inferoseptal. Basal inferior. Mid-anteroseptal. Mid-inferoseptal. Mid-inferior. [place]. SIZE: Large (5 or more segments). SEVERITY: [...] MD on 06/01/2022 at 06:10 Normal [facility] FK506 (TACROLIMUS) WHOLE BLO ODon 05-06-2022 Tacrolimus (FK506), Blood 5.4 ng/mL Normal 2.0-20.0 [facility] Comment on above: Result Comment: Trou gh (immediately following transplant) 15.0 . Trough (steady state, 2 weeks or more after transplant): 3.0 - 8.0 . Performed by LC-MS/MS technology. Performed By: #### P HOS, URIC, MG, CMP, DBIL, LIPID #### [facility] [address] [place] [address] Dr. Karla Lagos BK VIRUS PCR QUANTon 023 BKV DNA QUANT PCR PLASMA Negative Normal Negative [facility] Comment on above: Result Comment: No B K DNA detected. . The linear range of the assay is 22 - 100,000,000 IU/mL. Performed By: #### P HOS, URIC, MG, CMP, DBIL, LIPID #### [facility] [address] [place] [address] Dr. Karla Lagos Log10 BKV DNA Plasma Normal [facility] Comment on above: Performed By: #### P HOS, URIC, MG, CMP, DBIL, LIPID #### [facility] [address] [address] [address] Karla Lagos BILIRUBIN CONJUGATED (DIRECT )on 05-03-2022 BILI, CONJUGATED 0.2 mg/dL Normal 0.0-0.2 [facility] Comment on above: Performed By: #### P HOS, URIC, MG, CMP, DBIL, LIPID #### [facility] [address] [place] [address] Dr. Karla Lagos CBC AUTO DIFFon 05-03-2022 BASO # 0.1 103/ul Normal 0.0-0.1 [facility] Comment on above: Performed By: #### P HOS, URIC, MG, CMP, DBIL, LIPID #### [facility] [address] [place] [address] Dr. Karla Lagos Basophils/100 WBC (Bld) 0.7 % Normal 0.2-2.0 [facility] Comment on above: Performed By: #### P HOS, URIC, MG, CMP, DBIL, LIPID #### [facility] [address] [place] [address] Dr. Karla Lagos EO # 0.1 103/ul Normal 0.0-0.7 [facility] Comment on above: Performed By: #### P HOS, URIC, MG, CMP, DBIL, LIPID #### [facility] [address] [place] [address] Dr. Karla Lagos Eosinophils/100 WBC (Bld) 1.6 % Normal 0.9-7.0 [facility] Comment on above: Performed By: #### P HOS, URIC, MG, CMP, DBIL, LIPID #### [facility] [address] [place] [address] Dr. Karla Lagos Erythrocyte distribution width (RBC) [Ratio] 13.7 % Normal 11.0-15.0 [facility] Comment on above: Performed By: #### P HOS, URIC, MG, CMP, DBIL, LIPID #### [facility] [address] [place] [address] Dr. Karla Lagos Hematocrit (Bld) [Volume fraction] 49.1 % Normal 42.0-54.0 [facility] Comment on above: Performed By: #### P HOS, URIC, MG, CMP, DBIL, LIPID #### [facility] [address] [place] [address] Dr. Karla Lagos Hemoglobin (Bld) [Mass/Vol] 16.5 g/dL Normal 14.0-18.0 [facility] Comment on above: Performed By: #### P HOS, URIC, MG, CMP, DBIL, LIPID #### [facility] [address] [place] [address] Dr. Karla Lagos IG # 0.05 10e3/ul Critically high 0.00-0.03 [facility] Comment on above: Performed By: #### P HOS, URIC, MG, CMP, DBIL, LIPID #### [facility] [address] [place] [address] Dr. Karla Lagos IG % 0.7 % Critically high 0.0-0.5 [facility] Comment on above: Performed By: #### P HOS, URIC, MG, CMP, DBIL, LIPID #### [facility] [address] [place] [address] Dr. Karla Lagos LYMPH # 1.0 103/ul Critically low 1.2-3.8 [facility] Comment on above: Performed By: #### P HOS, URIC, MG, CMP, DBIL, LIPID #### [facility] [address] [place] [address] Dr. Karla Lagos Lymphocytes/100 WBC (Bld) 13.7 % Critically low 20.5-60.0 [facility] Comment on above: Performed By: #### P HOS, URIC, MG, CMP, DBIL, LIPID #### [facility] [address] [place] [address] Dr. Karla Lagos MANUAL DIFF REQ NO Normal [facility] Comment on above: Performed By: #### P HOS, URIC, MG, CMP, DBIL, LIPID #### [facility] [address] [place] [address] Dr. Karla Lagos MCH (RBC) [Entitic mass] 30.9 pg Normal 25.9-34.0 [facility] Comment on above: Performed By: #### P HOS, URIC, MG, CMP, DBIL, LIPID #### [facility] [address] [place] [address] Dr. Karla Lagos MCHC (RBC) [Mass/Vol] 33.6 g/dL Normal 29.9-35.2 [facility] Comment on above: Performed By: #### P HOS, URIC, MG, CMP, DBIL, LIPID #### [facility] [address] [place] [address] Dr. Karla Lagos MCV (RBC) [Entitic vol] 91.9 fL Normal 80.0-94.0 [facility] Comment on above: Performed By: #### P HOS, URIC, MG, CMP, DBIL, LIPID #### [facility] [address] [place] [address] Dr. Karla Lagos MONO # 0.7 103/ul Normal 0.3-0.8 [facility] Comment on above: Performed By: #### P HOS, URIC, MG, CMP, DBIL, LIPID #### [facility] [address] [place] [address] Dr. Karla Lagos Monocytes/100 WBC (Bld) 9.7 % Normal 1.7-12.0 [facility] Comment on above: Performed By: #### P HOS, URIC, MG, CMP, DBIL, LIPID #### [facility] [address] [place] [address] Dr. Karla Lagos NEUT # 5.2 103/ul Normal 1.4-6.5 [facility] Comment on above: Performed By: #### P HOS, URIC, MG, CMP, DBIL, LIPID #### [facility] [address] [place] [address] Dr. Karla Lagos Neutrophils/100 WBC (Bld) 73.6 % Normal 43.0-75.0 [facility] Comment on above: Performed By: #### P HOS, URIC, MG, CMP, DBIL, LIPID #### [facility] [address] [address] [address] Karla Lagos Platelet mean volume (Bld) [Entitic vol] 10.2 fL Normal 9.5-13.5 [facility] Comment on above: Performed By: #### P HOS, URIC, MG, CMP, DBIL, LIPID #### [facility] [address] [address] [address] Karla Lagos PLT 218 103/ul Normal 150-450 [facility] Comment on above: Performed By: #### P HOS, URIC, MG, CMP, DBIL, LIPID #### [facility] [address] [place] [address] Dr. Karla Lagos RBC 5.34 106/ul Normal 4.70-6.10 [facility] Comment on above: Performed By: #### P HOS, URIC, MG, CMP, DBIL, LIPID #### [facility] [address] [place] [address] Dr. Karla Lagos WBC 7.1 103/ul Normal 4.0-11.0 [facility] Comment on above: Performed By: #### P HOS, URIC, MG, CMP, DBIL, LIPID #### [facility] [address] [place] [address] Dr. Karla Lagos LIPID PROFILEon 05-03-2022 CHOL-HDL RATIO NORM SEE BELOW Normal [facility] Comment on above: Result Comment: 3.3 - 4.4 LOW RISK 4.4 - 7.1 AVERAGE RISK 7.1 - 11.0 MODERATE RISK >11.0 HIGH RISK Performed By: #### M G, CMP, URIC, DBIL, LIPID, PHOS #### [facility] [address] [place] [address] Dr. Karla Lagos Cholesterol [Mass/Vol] 121 mg/dL Normal <=200 [facility] Comment on above: Performed By: #### M G, CMP, URIC, DBIL, LIPID, PHOS #### [facility] [address] [place] [address] Dr. Karla Lagos Cholesterol in HDL [Mass/Vol] 44 mg/dL Normal 40-60 [facility] Comment on above: Performed By: #### M G, CMP, URIC, DBIL, LIPID, PHOS #### [facility] [address] [address] [address] Karla Lagos Cholesterol in LDL [Mass/Vol] 40.0 mg/dL Normal [facility] Comment on above: Performed By: #### M G, CMP, URIC, DBIL, LIPID, PHOS #### [facility] [address] [address] [address] Karla Lagos Cholesterol.total/C holesterol in HDL [Mass ratio] 2.8 {ratio} Normal [facility] Comment on above: Performed By: #### M G, CMP, URIC, DBIL, LIPID, PHOS #### [facility] [address] [address] [address] Karla Lagos HDL NORMAL > or = 60 mg/dl - LO W CARDIOVASCULAR RISK <40 mg/dl - HIGH CARDIOVASCULAR RISK Normal [facility] Comment on above: Performed By: #### M G, CMP, URIC, DBIL, LIPID, PHOS #### [facility] [address] [address] [address] Karla Lagos LDL CALC NORMAL SEE BELOW Normal [facility] Comment on above: Result Comment: <100 mg/dl OPTIMAL 100 - 129 mg/dl NEAR OR ABOVE OPTIMAL 130 - 159 mg/dl BORDERLINE HIGH 160 - 189 mg/dl HIGH >190 mg/dl VERY HIGH Performed By: #### M G, CMP, URIC, DBIL, LIPID, PHOS #### [facility] [address] [address] [address] Karla Lagos Triglyceride [Mass/Vol] 185 mg/dL Critically high <=150 [facility] Comment on above: Performed By: #### M G, CMP, URIC, DBIL, LIPID, PHOS #### [facility] [address] [address] [address] Karla Lagos VLDL CALC 37.0 mg/dL Normal [facility] Comment on above: Performed By: #### M G, CMP, URIC, DBIL, LIPID, PHOS #### [facility] [address] [address] [address] Karla Lagos MAGNESIUMon 05-03-2022 Magnesium [Mass/Vol] 1.6 mg/dL Critically low 1.8-2.4 [facility] Comment on above: Performed By: #### P HOS, URIC, MG, CMP, DBIL, LIPID #### [facility] [address] [address] [address] Karla Lagos PHOSPHORUSon 05-03-2022 Phosphate [Mass/Vol] 3.6 mg/dL Normal 2.6-4.7 [facility] Comment on above: Performed By: #### P HOS, URIC, MG, CMP, DBIL, LIPID #### [facility] [address] [address] [address] Karla Lagos PROF 14(COMP METB)on 023 Albumin [Mass/Vol] 3.9 g/dL Normal 3.4-5.0 [facility] [place] [facility] Comment on above: Performed By: #### M G, CMP, URIC, DBIL, LIPID, PHOS #### [facility] [address] [address] [address] Karla Lagos Albumin/Globulin [Mass ratio] 1.3 {ratio} Normal [facility] Comment on above: Performed By: #### M G, CMP, URIC, DBIL, LIPID, PHOS #### [facility] [address] [address] [address] Karla Lagos ALP [Catalytic activity/Vol] 80 U/L Normal 46-116 [facility] Comment on above: Performed By: #### M G, CMP, URIC, DBIL, LIPID, PHOS #### [facility] [address] [address] [address] Karla Lagos ALT [Catalytic activity/Vol] 41 U/L Normal 16-63 [facility] Comment on above: Performed By: #### M G, CMP, URIC, DBIL, LIPID, PHOS #### [facility] [address] [address] [address] Karla Lagos Anion gap [Moles/Vol] 11.9 mmol/L Normal [facility] Comment on above: Performed By: #### M G, CMP, URIC, DBIL, LIPID, PHOS #### [facility] [address] [address] [address] Karla Lagos AST [Catalytic activity/Vol] 24 U/L Normal 15-37 [facility] Comment on above: Performed By: #### M G, CMP, URIC, DBIL, LIPID, PHOS #### [facility] [address] [address] [address] Karla Lagos Bilirubin [Mass/Vol] 0.7 mg/dL Normal 0.2-1.0 [facility] Comment on above: Performed By: #### M G, CMP, URIC, DBIL, LIPID, PHOS #### [facility] [address] [place] [address] Dr. Karla Lagos Calcium [Mass/Vol] 9.2 mg/dL Normal 8.5-10.1 [facility] [place] [facility] Comment on above: Performed By: #### M G, CMP, URIC, DBIL, LIPID, PHOS #### [facility] [address] [place] [address] Dr. Karla Lagos Chloride [Moles/Vol] 103 mmol/L Normal 98-107 [facility] Comment on above: Performed By: #### M G, CMP, URIC, DBIL, LIPID, PHOS #### [facility] [address] [place] [address] Dr. Karla Lagos CO2 [Moles/Vol] 28.1 mmol/L Normal 21.0-32.0 [facility] Comment on above: Performed By: #### M G, CMP, URIC, DBIL, LIPID, PHOS #### [facility] [address] [place] [address] Dr. Karla Lagos Creatinine [Mass/Vol] 1.19 mg/dL Normal 0.70-1.30 [facility] Comment on above: Performed By: #### M G, CMP, URIC, DBIL, LIPID, PHOS #### [facility] [address] [place] [address] Dr. Karla Lagos EGFR-AF ENGLISH >60 Normal >=60 [facility] Comment on above: Performed By: #### M G, CMP, URIC, DBIL, LIPID, PHOS #### [facility] [address] [address] [address] Karla Lagos EGFR-NON AF ENGLISH >60 Normal >=60 [facility] Comment on above: Performed By: #### M G, CMP, URIC, DBIL, LIPID, PHOS #### [facility] [address] [address] [address] Karla Lagos Globulin (S) [Mass/Vol] 2.9 g/dL Normal [facility] Comment on above: Performed By: #### M G, CMP, URIC, DBIL, LIPID, PHOS #### [facility] [address] [place] [address] Dr. Karla Lagos Glucose [Mass/Vol] 119 mg/dL Critically high 74-106 [facility] Comment on above: Performed By: #### M G, CMP, URIC, DBIL, LIPID, PHOS #### [facility] [address] [place] [address] Dr. Karla Lagos Potassium [Moles/Vol] 4.0 mmol/L Normal 3.5-5.1 [facility] Comment on above: Performed By: #### M G, CMP, URIC, DBIL, LIPID, PHOS #### [facility] [address] [place] [address] Dr. Karla Lagos Protein [Mass/Vol] 6.8 g/dL Normal 6.4-8.2 [facility] Comment on above: Performed By: #### M G, CMP, URIC, DBIL, LIPID, PHOS #### [facility] [address] [place] [address] Dr. Karla Lagos Sodium [Moles/Vol] 139 mmol/L Normal 136-145 [facility] Comment on above: Performed By: #### M G, CMP, URIC, DBIL, LIPID, PHOS #### [facility] [address] [place] [address] Dr. Karla Lagos Urea nitrogen [Mass/Vol] 20.0 mg/dL Critically high 7.0-18.0 [facility] Comment on above: Performed By: #### M G, CMP, URIC, DBIL, LIPID, PHOS #### [facility] [address] [place] [address] Dr. Karla Lagos Urea nitrogen/Creatinine [Mass ratio] 16.8 mg/mg Normal [facility] Comment on above: Performed By: #### M G, CMP, URIC, DBIL, LIPID, PHOS #### [facility] [address] [address] [address] Karla Lagos URIC ACID SERUMon 05-03-2022 Urate [Mass/Vol] 5.5 mg/dL Normal 3.5-7.2 [facility] Comment on above: Performed By: #### M G, CMP, URIC, DBIL, LIPID, PHOS #### [facility] [address] [place] [address] Dr. Karla Lagos FK506 (TACROLIMUS) WHOLE BLO ODon 04-17-2022 Tacrolimus (FK506), Blood 6.1 ng/mL Normal 2.0-20.0 [facility] Comment on above: Result Comment: Trou gh (immediately following transplant) 15.0 . Trough (steady state, 2 weeks or more after transplant): 3.0 - 8.0 . Performed by LC-MS/MS technology. Performed By: #### P HOS, URIC, MG, CMP, DBIL, LIPID #### [facility] [address] [place] [address] Dr. Karla Lagos FK506 (TACROLIMUS) WHOLE BLO ODon 03-28-2022 Tacrolimus (FK506), Blood 8.8 ng/mL Normal 2.0-20.0 [facility] Comment on above: Result Comment: Trou gh (immediately following transplant) 15.0 . Trough (steady state, 2 weeks or more after transplant): 3.0 - 8.0 . Performed by LC-MS/MS technology. Performed By: #### P HOS, URIC, MG, CMP, DBIL, LIPID #### [facility] [address] [place] [address] Dr. Kalra Lagos BILIRUBIN CONJUGATED (DIRECT )on 03-25-2022 BILI, CONJUGATED 0.2 mg/dL Normal 0.0-0.2 [facility] Comment on above: Performed By: #### P HOS, URIC, MG, CMP, DBIL, LIPID #### [facility] [address] [place] [address] Dr. Karla Lagos CBC AUTO DIFFon 03-25-2022 BASO # 0.1 103/ul Normal 0.0-0.1 [facility] Comment on above: Performed By: #### P HOS, URIC, MG, CMP, DBIL, LIPID #### [facility] [address] [place] [address] Dr. Karla Lagos Basophils/100 WBC (Bld) 0.7 % Normal 0.2-2.0 [facility] Comment on above: Performed By: #### P HOS, URIC, MG, CMP, DBIL, LIPID #### [facility] [address] [place] [address] Dr. Karla Lagos EO # 0.1 103/ul Normal 0.0-0.7 [facility] Comment on above: Performed By: #### P HOS, URIC, MG, CMP, DBIL, LIPID #### [facility] [address] [place] [address] Dr. Karla Lagos Eosinophils/100 WBC (Bld) 1.4 % Normal 0.9-7.0 [facility] Comment on above: Performed By: #### P HOS, URIC, MG, CMP, DBIL, LIPID #### [facility] [address] [place] [address] Dr. Karla Lagos Erythrocyte distribution width (RBC) [Ratio] 13.6 % Normal 11.0-15.0 [facility] Comment on above: Performed By: #### P HOS, URIC, MG, CMP, DBIL, LIPID #### [facility] [address] [place] [address] Dr. Karla Lagos Hematocrit (Bld) [Volume fraction] 51.5 % Normal 42.0-54.0 [facility] Comment on above: Performed By: #### P HOS, URIC, MG, CMP, DBIL, LIPID #### [facility] [address] [address] [address] Karla Lagos Hemoglobin (Bld) [Mass/Vol] 16.8 g/dL Normal 14.0-18.0 [facility] Comment on above: Performed By: #### P HOS, URIC, MG, CMP, DBIL, LIPID #### [facility] [address] [place] [address] Dr. Karla Lagos IG # 0.06 10e3/ul Critically high 0.00-0.03 [facility] Comment on above: Performed By: #### P HOS, URIC, MG, CMP, DBIL, LIPID #### [facility] [address] [place] [address] Dr. Karla Lagos IG % 0.8 % Critically high 0.0-0.5 [facility] Comment on above: Performed By: #### P HOS, URIC, MG, CMP, DBIL, LIPID #### [facility] [address] [place] [address] Dr. Karla Lagos LYMPH # 1.1 103/ul Critically low 1.2-3.8 [facility] Comment on above: Performed By: #### P HOS, URIC, MG, CMP, DBIL, LIPID #### [facility] [address] [place] [address] Dr. Karla Lagos Lymphocytes/100 WBC (Bld) 14.8 % Critically low 20.5-60.0 [facility] Comment on above: Performed By: #### P HOS, URIC, MG, CMP, DBIL, LIPID #### [facility] [address] [place] [address] Dr. Karla Lagos MANUAL DIFF REQ NO Normal [facility] Comment on above: Performed By: #### P HOS, URIC, MG, CMP, DBIL, LIPID #### [facility] [address] [place] [address] Dr. Karla Lagos MCH (RBC) [Entitic mass] 30.2 pg Normal 25.9-34.0 [facility] Comment on above: Performed By: #### P HOS, URIC, MG, CMP, DBIL, LIPID #### [facility] [address] [place] [address] Dr. Karla Lagos MCHC (RBC) [Mass/Vol] 32.6 g/dL Normal 29.9-35.2 [facility] Comment on above: Performed By: #### P HOS, URIC, MG, CMP, DBIL, LIPID #### [facility] [address] [place] [address] Dr. Karla Lagos MCV (RBC) [Entitic vol] 92.6 fL Normal 80.0-94.0 [facility] Comment on above: Performed By: #### P HOS, URIC, MG, CMP, DBIL, LIPID #### [facility] [address] [place] [address] Dr. Karla Lagos MONO # 0.7 103/ul Normal 0.3-0.8 [facility] Comment on above: Performed By: #### P HOS, URIC, MG, CMP, DBIL, LIPID #### [facility] [address] [place] [address] Dr. Karla Lagos Monocytes/100 WBC (Bld) 10.0 % Normal 1.7-12.0 [facility] Comment on above: Performed By: #### P HOS, URIC, MG, CMP, DBIL, LIPID #### [facility] [address] [place] [address] Dr. Karla Lagos NEUT # 5.2 103/ul Normal 1.4-6.5 [facility] Comment on above: Performed By: #### P HOS, URIC, MG, CMP, DBIL, LIPID #### [facility] [address] [place] [address] Dr. Karla Lagos Neutrophils/100 WBC (Bld) 72.3 % Normal 43.0-75.0 [facility] Comment on above: Performed By: #### P HOS, URIC, MG, CMP, DBIL, LIPID #### [facility] [address] [place] [address] Dr. Karla Lagos Platelet mean volume (Bld) [Entitic vol] 10.4 fL Normal 9.5-13.5 [facility] Comment on above: Performed By: #### P HOS, URIC, MG, CMP, DBIL, LIPID #### [facility] [address] [place], [place] [address] Dr. Karla Lagos PLT 245 103/ul Normal 150-450 [facility] Comment on above: Performed By: #### P HOS, URIC, MG, CMP, DBIL, LIPID #### [facility] [address] [address] [address] Karla Lagos RBC 5.56 106/ul Normal 4.70-6.10 [facility] Comment on above: Performed By: #### P HOS, URIC, MG, CMP, DBIL, LIPID #### [facility] [address] [address] [address] Karla Lagos WBC 7.2 103/ul Normal 4.0-11.0 [facility] Comment on above: Performed By: #### P HOS, URIC, MG, CMP, DBIL, LIPID #### [facility] [address] [address] [address] Karla Lagos LIPID PROFILEon 03-25-2022 CHOL-HDL RATIO NORM SEE BELOW Normal [facility] Comment on above: Result Comment: 3.3 - 4.4 LOW RISK 4.4 - 7.1 AVERAGE RISK 7.1 - 11.0 MODERATE RISK >11.0 HIGH RISK Performed By: #### P HOS, URIC, MG, CMP, DBIL, LIPID #### [facility] [address] [address] [address] Karla Lagos Cholesterol [Mass/Vol] 124 mg/dL Normal <=200 [facility] Comment on above: Performed By: #### P HOS, URIC, MG, CMP, DBIL, LIPID #### [facility] [address] [address] [address] Karla Lagos Cholesterol in HDL [Mass/Vol] 47 mg/dL Normal 40-60 [facility] Comment on above: Performed By: #### P HOS, URIC, MG, CMP, DBIL, LIPID #### [facility] [address] [address] [address] Karla Lagos Cholesterol in LDL [Mass/Vol] 47.4 mg/dL Normal [facility] Comment on above: Performed By: #### P HOS, URIC, MG, CMP, DBIL, LIPID #### [facility] [address] [address] [address] Karla Lagos Cholesterol.total/C holesterol in HDL [Mass ratio] 2.6 {ratio} Normal [facility] Comment on above: Performed By: #### P HOS, URIC, MG, CMP, DBIL, LIPID #### [facility] [address] [address] [address] Karla Lagos HDL NORMAL > or = 60 mg/dl - LO W CARDIOVASCULAR RISK <40 mg/dl - HIGH CARDIOVASCULAR RISK Normal [facility] Comment on above: Performed By: #### P HOS, URIC, MG, CMP, DBIL, LIPID #### [facility] [address] [address] [address] Karla Lagos LDL CALC NORMAL SEE BELOW Normal [facility] Comment on above: Result Comment: <100 mg/dl OPTIMAL 100 - 129 mg/dl NEAR OR ABOVE OPTIMAL 130 - 159 mg/dl BORDERLINE HIGH 160 - 189 mg/dl HIGH >190 mg/dl VERY HIGH Performed By: #### P HOS, URIC, MG, CMP, DBIL, LIPID #### [facility] [address] [address] [address] Karla Lagos Triglyceride [Mass/Vol] 148 mg/dL Normal <=150 [facility] Comment on above: Performed By: #### P HOS, URIC, MG, CMP, DBIL, LIPID #### [facility] [address] [address] [address] Karla Lagos VLDL CALC 29.6 mg/dL Normal [facility] Comment on above: Performed By: #### P HOS, URIC, MG, CMP, DBIL, LIPID #### [facility] [address] [address] [address] Karla Lagos MAGNESIUMon 03-25-2022 Magnesium [Mass/Vol] 1.5 mg/dL Critically low 1.8-2.4 [facility] Comment on above: Performed By: #### P HOS, URIC, MG, CMP, DBIL, LIPID #### [facility] [address] [place] [address] Dr. Karla Lagos PHOSPHORUSon 03-25-2022 Phosphate [Mass/Vol] 3.8 mg/dL Normal 2.6-4.7 [facility] Comment on above: Performed By: #### P HOS, URIC, MG, CMP, DBIL, LIPID #### [facility] [address] [place] [address] Dr. Karla Lagos PROF 14(COMP METB)on 022 Albumin [Mass/Vol] 4.1 g/dL Normal 3.4-5.0 [facility] [place] [facility] Comment on above: Performed By: #### P HOS, URIC, MG, CMP, DBIL, LIPID #### [facility] [address] [place] [address] Dr. Karla Lagos Albumin/Globulin [Mass ratio] 1.3 {ratio} Normal [facility] Comment on above: Performed By: #### P HOS, URIC, MG, CMP, DBIL, LIPID #### [facility] [address] [place] [address] Dr. Karla Lagos ALP [Catalytic activity/Vol] 76 U/L Normal 46-116 [facility] Comment on above: Performed By: #### P HOS, URIC, MG, CMP, DBIL, LIPID #### [facility] [address] [place] [address] Dr. Karla Lagos ALT [Catalytic activity/Vol] 36 U/L Normal 16-63 [facility] Comment on above: Performed By: #### P HOS, URIC, MG, CMP, DBIL, LIPID #### [facility] [address] [place] [address] Dr. Karla Lagos Anion gap [Moles/Vol] 12.4 mmol/L Normal [facility] Comment on above: Performed By: #### P HOS, URIC, MG, CMP, DBIL, LIPID #### [facility] [address] [place] [address] Dr. Karla Lagos AST [Catalytic activity/Vol] 21 U/L Normal 15-37 [facility] Comment on above: Performed By: #### P HOS, URIC, MG, CMP, DBIL, LIPID #### [facility] [address] [address] [address] Karla Lagos Bilirubin [Mass/Vol] 0.6 mg/dL Normal 0.2-1.0 [facility] Comment on above: Performed By: #### P HOS, URIC, MG, CMP, DBIL, LIPID #### [facility] [address] [address] [address] Karla Lagos Calcium [Mass/Vol] 9.4 mg/dL Normal 8.5-10.1 [facility] [place] [facility] Comment on above: Performed By: #### P HOS, URIC, MG, CMP, DBIL, LIPID #### [facility] [address] [place] [address] Dr. Karla Lagos Chloride [Moles/Vol] 103 mmol/L Normal 98-107 [facility] Comment on above: Performed By: #### P HOS, URIC, MG, CMP, DBIL, LIPID #### [facility] [address] [address] [address] Karla Lagos CO2 [Moles/Vol] 30.6 mmol/L Normal 21.0-32.0 [facility] Comment on above: Performed By: #### P HOS, URIC, MG, CMP, DBIL, LIPID #### [facility] [address] [place] [address] Dr. Karla Lagos Creatinine [Mass/Vol] 1.34 mg/dL Critically high 0.70-1.30 [facility] Comment on above: Performed By: #### P HOS, URIC, MG, CMP, DBIL, LIPID #### [facility] [address] [place] [address] Dr. Karla Lagos EGFR-AF ENGLISH >60 Normal >=60 [facility] Comment on above: Performed By: #### P HOS, URIC, MG, CMP, DBIL, LIPID #### [facility] [address] [place] [address] Dr. Karla Lagos EGFR-NON AF ENGLISH 54 mL/min/1.73m2 Critically low >=60 [facility] Comment on above: Performed By: #### P HOS, URIC, MG, CMP, DBIL, LIPID #### [facility] [address] [address] [address] Karla Lagos Globulin (S) [Mass/Vol] 3.2 g/dL Normal [facility] Comment on above: Performed By: #### P HOS, URIC, MG, CMP, DBIL, LIPID #### [facility] [address] [address] [address] Karla Lagos Glucose [Mass/Vol] 125 mg/dL Critically high 74-106 [facility] Comment on above: Performed By: #### P HOS, URIC, MG, CMP, DBIL, LIPID #### [facility] [address] [place] [address] Dr. Karla Lagos Potassium [Moles/Vol] 5.0 mmol/L Normal 3.5-5.1 [facility] Comment on above: Performed By: #### P HOS, URIC, MG, CMP, DBIL, LIPID #### [facility] [address] [place] [address] Dr. Karla Lagos Protein [Mass/Vol] 7.3 g/dL Normal 6.4-8.2 [facility] Comment on above: Performed By: #### P HOS, URIC, MG, CMP, DBIL, LIPID #### [facility] [address] [place] [address] Dr. Karla Lagos Sodium [Moles/Vol] 141 mmol/L Normal 136-145 [facility] Comment on above: Performed By: #### P HOS, URIC, MG, CMP, DBIL, LIPID #### [facility] [address] [place] [address] Dr. Karla Lagos Urea nitrogen [Mass/Vol] 24.0 mg/dL Critically high 7.0-18.0 [facility] Comment on above: Performed By: #### P HOS, URIC, MG, CMP, DBIL, LIPID #### [facility] [address] [place] [address] Dr. Karla Lagos Urea nitrogen/Creatinine [Mass ratio] 17.9 mg/mg Normal [facility] Comment on above: Performed By: #### P HOS, URIC, MG, CMP, DBIL, LIPID #### [facility] [address] [address] [address] Karla Lagos URIC ACID SERUMon 03-25-2022 Urate [Mass/Vol] 5.0 mg/dL Normal 3.5-7.2 [facility] Comment on above: Performed By: #### P HOS, URIC, MG, CMP, DBIL, LIPID #### [facility] [address] [address] [address] Karla Lagos FK506 (TACROLIMUS) WHOLE BLO ODon 02-27-2022 Tacrolimus (FK506), Blood 8.0 ng/mL Normal 2.0-20.0 [facility] Comment on above: Result Comment: Trou gh (immediately following transplant) 15.0 . Trough (steady state, 2 weeks or more after transplant): 3.0 - 8.0 . Performed by LC-MS/MS technology. Performed By: #### P HOS, URIC, MG, CMP, DBIL, LIPID #### [facility] [address] [place] [address] Dr. Karla Lagos BK VIRUS PCR QUANTon 022 BKV DNA QUANT PCR PLASMA Negative Normal Negative [facility] Comment on above: Result Comment: No B K DNA detected. . The linear range of the assay is 22 - 100,000,000 IU/mL. Performed By: #### P HOS, URIC, MG, CMP, DBIL, LIPID #### [facility] [address] [place] [address] Dr. Karla Lagos Log10 BKV DNA Plasma Normal [facility] Comment on above: Performed By: #### P HOS, URIC, MG, CMP, DBIL, LIPID #### [facility] [address] [place] [address] Dr. Karla Lagos BILIRUBIN CONJUGATED (DIRECT )on 02-24-2022 BILI, CONJUGATED 0.2 mg/dL Normal 0.0-0.2 [facility] Comment on above: Performed By: #### P HOS, URIC, MG, CMP, DBIL, LIPID #### [facility] [address] [place] [address] Dr. Karla Lagso CBC AUTO DIFFon 02-24-2022 BASO # 0.1 103/ul Normal 0.0-0.1 [facility] Comment on above: Performed By: #### P HOS, URIC, MG, CMP, DBIL, LIPID #### [facility] [address] [place] [address] Dr. Karla Lagos Basophils/100 WBC (Bld) 0.8 % Normal 0.2-2.0 [facility] Comment on above: Performed By: #### P HOS, URIC, MG, CMP, DBIL, LIPID #### [facility] [address] [place] [address] Dr. Karla Lagos EO # 0.1 103/ul Normal 0.0-0.7 [facility] Comment on above: Performed By: #### P HOS, URIC, MG, CMP, DBIL, LIPID #### [facility] [address] [place] [address] Dr. Karla Lagos Eosinophils/100 WBC (Bld) 1.7 % Normal 0.9-7.0 [facility] Comment on above: Performed By: #### P HOS, URIC, MG, CMP, DBIL, LIPID #### [facility] [address] [place] [address] Dr. Karla Lagos Erythrocyte distribution width (RBC) [Ratio] 14.1 % Normal 11.0-15.0 [facility] Comment on above: Performed By: #### P HOS, URIC, MG, CMP, DBIL, LIPID #### [facility] [address] [place] [address] Dr. Karla Lagos Hematocrit (Bld) [Volume fraction] 48.1 % Normal 42.0-54.0 [facility] Comment on above: Performed By: #### P HOS, URIC, MG, CMP, DBIL, LIPID #### [facility] [address] [place] [address] Dr. Karla Lagos Hemoglobin (Bld) [Mass/Vol] 16.0 g/dL Normal 14.0-18.0 [facility] Comment on above: Performed By: #### P HOS, URIC, MG, CMP, DBIL, LIPID #### [facility] [address] [place] [address] Dr. Karla Lagos IG # 0.03 10e3/ul Normal 0.00-0.03 [facility] Comment on above: Performed By: #### P HOS, URIC, MG, CMP, DBIL, LIPID #### [facility] [address] [place] [address] Dr. Karla Lagos IG % 0.5 % Normal 0.0-0.5 [facility] Comment on above: Performed By: #### P HOS, URIC, MG, CMP, DBIL, LIPID #### [facility] [address] [place] [address] Dr. Karla Lagos LYMPH # 1.0 103/ul Critically low 1.2-3.8 [facility] Comment on above: Performed By: #### P HOS, URIC, MG, CMP, DBIL, LIPID #### [facility] [address] [place] [address] Dr. Karla Lagos Lymphocytes/100 WBC (Bld) 16.9 % Critically low 20.5-60.0 [facility] Comment on above: Performed By: #### P HOS, URIC, MG, CMP, DBIL, LIPID #### [facility] [address] [place] [address] Dr. Karla Lagos MANUAL DIFF REQ NO Normal [facility] Comment on above: Performed By: #### P HOS, URIC, MG, CMP, DBIL, LIPID #### [facility] [address] [place] [address] Dr. Karla Lagos MCH (RBC) [Entitic mass] 31.1 pg Normal 25.9-34.0 [facility] Comment on above: Performed By: #### P HOS, URIC, MG, CMP, DBIL, LIPID #### [facility] [address] [place] [address] Dr. Karla Lagos MCHC (RBC) [Mass/Vol] 33.3 g/dL Normal 29.9-35.2 [facility] Comment on above: Performed By: #### P HOS, URIC, MG, CMP, DBIL, LIPID #### [facility] [address] [place] [address] Dr. Karla Lagos MCV (RBC) [Entitic vol] 93.6 fL Normal 80.0-94.0 [facility] Comment on above: Performed By: #### P HOS, URIC, MG, CMP, DBIL, LIPID #### [facility] [address] [place] [address] Dr. Karla Lagos MONO # 0.6 103/ul Normal 0.3-0.8 [facility] Comment on above: Performed By: #### P HOS, URIC, MG, CMP, DBIL, LIPID #### [facility] [address] [place] [address] Dr. Karla Lagos Monocytes/100 WBC (Bld) 10.1 % Normal 1.7-12.0 [facility] Comment on above: Performed By: #### P HOS, URIC, MG, CMP, DBIL, LIPID #### [facility] [address] [place] [address] Dr. Karla Lagos NEUT # 4.2 103/ul Normal 1.4-6.5 [facility] Comment on above: Performed By: #### P HOS, URIC, MG, CMP, DBIL, LIPID #### [facility] [address] [place] [address] Dr. Karla Lagos Neutrophils/100 WBC (Bld) 70.0 % Normal 43.0-75.0 [facility] Comment on above: Performed By: #### P HOS, URIC, MG, CMP, DBIL, LIPID #### [facility] [address] [place] [address] Dr. Karla Lagos Platelet mean volume (Bld) [Entitic vol] 10.2 fL Normal 9.5-13.5 [facility] Comment on above: Performed By: #### P HOS, URIC, MG, CMP, DBIL, LIPID #### [facility] [address] [place] [address] Dr. Karla Lagos PLT 226 103/ul Normal 150-450 [facility] Comment on above: Performed By: #### P HOS, URIC, MG, CMP, DBIL, LIPID #### [facility] [address] [address] [address] Karla Lagos RBC 5.14 106/ul Normal 4.70-6.10 [facility] Comment on above: Performed By: #### P HOS, URIC, MG, CMP, DBIL, LIPID #### [facility] [address] [address] [address] Karla Lagos WBC 6.0 103/ul Normal 4.0-11.0 [facility] Comment on above: Performed By: #### P HOS, URIC, MG, CMP, DBIL, LIPID #### [facility] [address] [address] [address] Karla Lagos LIPID PROFILEon 02-24-2022 CHOL-HDL RATIO NORM SEE BELOW Normal [facility] Comment on above: Result Comment: 3.3 - 4.4 LOW RISK 4.4 - 7.1 AVERAGE RISK 7.1 - 11.0 MODERATE RISK >11.0 HIGH RISK Performed By: #### P HOS, URIC, MG, CMP, DBIL, LIPID #### [facility] [address] [address] [address] Karla Lagos Cholesterol [Mass/Vol] 132 mg/dL Normal <=200 [facility] Comment on above: Performed By: #### P HOS, URIC, MG, CMP, DBIL, LIPID #### [facility] [address] [address] [address] aKrla Lagos Cholesterol in HDL [Mass/Vol] 50 mg/dL Normal 40-60 [facility] Comment on above: Performed By: #### P HOS, URIC, MG, CMP, DBIL, LIPID #### [facility] [address] [address] [address] Karla Lagos Cholesterol in LDL [Mass/Vol] 54.6 mg/dL Normal [facility] Comment on above: Performed By: #### P HOS, URIC, MG, CMP, DBIL, LIPID #### [facility] [address] [address] [address] Karla Lagos Cholesterol.total/C holesterol in HDL [Mass ratio] 2.6 {ratio} Normal [facility] Comment on above: Performed By: #### P HOS, URIC, MG, CMP, DBIL, LIPID #### [facility] [address] [address] [address] Karla Lagos HDL NORMAL > or = 60 mg/dl - LO W CARDIOVASCULAR RISK <40 mg/dl - HIGH CARDIOVASCULAR RISK Normal [facility] Comment on above: Performed By: #### P HOS, URIC, MG, CMP, DBIL, LIPID #### [facility] [address] [address] [address] Karla Lagos LDL CALC NORMAL SEE BELOW Normal [facility] Comment on above: Result Comment: <100 mg/dl OPTIMAL 100 - 129 mg/dl NEAR OR ABOVE OPTIMAL 130 - 159 mg/dl BORDERLINE HIGH 160 - 189 mg/dl HIGH >190 mg/dl VERY HIGH Performed By: #### P HOS, URIC, MG, CMP, DBIL, LIPID #### [facility] [address] [address] [address] Karla Lagos Triglyceride [Mass/Vol] 137 mg/dL Normal <=150 [facility] Comment on above: Performed By: #### P HOS, URIC, MG, CMP, DBIL, LIPID #### [facility] [address] [address] [address] Karla Lagos VLDL CALC 27.4 mg/dL Normal [facility] Comment on above: Performed By: #### P HOS, URIC, MG, CMP, DBIL, LIPID #### [facility] [address] [address] [address] Karla Lagos MAGNESIUMon 02-24-2022 Magnesium [Mass/Vol] 1.5 mg/dL Critically low 1.8-2.4 [facility] Comment on above: Performed By: #### P HOS, URIC, MG, CMP, DBIL, LIPID #### [facility] [address] [place] [address] Dr. Karla Lagos PHOSPHORUSon 02-24-2022 Phosphate [Mass/Vol] 3.2 mg/dL Normal 2.6-4.7 [facility] Comment on above: Performed By: #### P HOS, URIC, MG, CMP, DBIL, LIPID #### [facility] [address] [place] [address] Dr. Karla Lagos PROF 14(COMP METB)on 022 Albumin [Mass/Vol] 4.1 g/dL Normal 3.4-5.0 [facility] [place] [facility] Comment on above: Performed By: #### P HOS, URIC, MG, CMP, DBIL, LIPID #### [facility] [address] [place] [address] Dr. Karla Lagos Albumin/Globulin [Mass ratio] 1.4 {ratio} Normal [facility] Comment on above: Performed By: #### P HOS, URIC, MG, CMP, DBIL, LIPID #### [facility] [address] [place] [address] Dr. Karla Lagos ALP [Catalytic activity/Vol] 73 U/L Normal 46-116 [facility] Comment on above: Performed By: #### P HOS, URIC, MG, CMP, DBIL, LIPID #### [facility] [address] [place] [address] Dr. Karla Lagos ALT [Catalytic activity/Vol] 27 U/L Normal 16-63 [facility] Comment on above: Performed By: #### P HOS, URIC, MG, CMP, DBIL, LIPID #### [facility] [address] [place] [address] Dr. Karla Lagos Anion gap [Moles/Vol] 11.7 mmol/L Normal [facility] Comment on above: Performed By: #### P HOS, URIC, MG, CMP, DBIL, LIPID #### [facility] [address] [place] [address] Dr. Karla Lagos AST [Catalytic activity/Vol] 16 U/L Normal 15-37 [facility] Comment on above: Performed By: #### P HOS, URIC, MG, CMP, DBIL, LIPID #### [facility] [address] [place] [address] Dr. Karla Lagos Bilirubin [Mass/Vol] 0.8 mg/dL Normal 0.2-1.0 [facility] Comment on above: Performed By: #### P HOS, URIC, MG, CMP, DBIL, LIPID #### [facility] [address] [address] [address] Karla Lagos Calcium [Mass/Vol] 9.1 mg/dL Normal 8.5-10.1 [facility] [place] [facility] Comment on above: Performed By: #### P HOS, URIC, MG, CMP, DBIL, LIPID #### [facility] [address] [address] [address] Karla Lagos Chloride [Moles/Vol] 104 mmol/L Normal 98-107 [facility] Comment on above: Performed By: #### P HOS, URIC, MG, CMP, DBIL, LIPID #### [facility] [address] [place] [address] Dr. Karla Lagos CO2 [Moles/Vol] 29.4 mmol/L Normal 21.0-32.0 [facility] Comment on above: Performed By: #### P HOS, URIC, MG, CMP, DBIL, LIPID #### [facility] [address] [place] [address] Dr. Karla Lagos Creatinine [Mass/Vol] 1.27 mg/dL Normal 0.70-1.30 [facility] Comment on above: Performed By: #### P HOS, URIC, MG, CMP, DBIL, LIPID #### [facility] [address] [place] [address] Dr. Karla Lagos EGFR-AF ENGLISH >60 Normal >=60 [facility] Comment on above: Performed By: #### P HOS, URIC, MG, CMP, DBIL, LIPID #### [facility] [address] [place] [address] Dr. Karla Lagos EGFR-NON AF ENGLISH 58 mL/min/1.73m2 Critically low >=60 [facility] Comment on above: Performed By: #### P HOS, URIC, MG, CMP, DBIL, LIPID #### [facility] [address] [place] [address] Dr. Karla Lagos Globulin (S) [Mass/Vol] 2.9 g/dL Normal [facility] Comment on above: Performed By: #### P HOS, URIC, MG, CMP, DBIL, LIPID #### [facility] [address] [address] [address] Karla Lagos Glucose [Mass/Vol] 113 mg/dL Critically high 74-106 [facility] Comment on above: Performed By: #### P HOS, URIC, MG, CMP, DBIL, LIPID #### [facility] [address] [address] [address] Karla Lagos Potassium [Moles/Vol] 4.1 mmol/L Normal 3.5-5.1 [facility] Comment on above: Performed By: #### P HOS, URIC, MG, CMP, DBIL, LIPID #### [facility] [address] [place] [address] Dr. Karla Lagos Protein [Mass/Vol] 7.0 g/dL Normal 6.4-8.2 [facility] Comment on above: Performed By: #### P HOS, URIC, MG, CMP, DBIL, LIPID #### [facility] [address] [place] [address] Dr. Karla Lagos Sodium [Moles/Vol] 141 mmol/L Normal 136-145 [facility] Comment on above: Performed By: #### P HOS, URIC, MG, CMP, DBIL, LIPID #### [facility] [address] [address] [address] Karla Lagos Urea nitrogen [Mass/Vol] 18.0 mg/dL Normal 7.0-18.0 [facility] Comment on above: Performed By: #### P HOS, URIC, MG, CMP, DBIL, LIPID #### [facility] [address] [place] [address] Dr. Karla Lagos Urea nitrogen/Creatinine [Mass ratio] 14.2 mg/mg Normal [facility] Comment on above: Performed By: #### P HOS, URIC, MG, CMP, DBIL, LIPID #### [facility] [address] [place] [address] Dr. Karla Lagos URIC ACID SERUMon 02-24-2022 Urate [Mass/Vol] 6.0 mg/dL Normal 3.5-7.2 [facility] Comment on above: Performed By: #### P HOS, URIC, MG, CMP, DBIL, LIPID #### [facility] [address] [place], [place] [address] Dr. Karla Lagos XR Chest 2 Views*on 01-14-20 22 XR Chest 2 Views* FINDINGS: Comparison made with prior examination of September 24, 2020. Improved aeration with no persistent parenchymal consolidation. No pleural or pericardial effusions. Normal cardiac silhouette size. Sternotomy wires. Left central cardiac pacemaker. IMPRESSION: 1. Minimal residual post-inflammatory sequela. Report reported and signed by Anjum Remy on 01/13/2022 1143 Normal [facility] Specialist ECHOCARDIO M/2D COMPLETEon 0 09-28-2021 ECHOCARDIO M/2D COMPLETE Patient: VISHAL DUKE Exam Date: 09/28/2021 : 1960 Gender:M Ordering : DR FEDERICO CHESTER M.D. Admission #: [id number] Family : DR ROSA M GONZALES M.D. Order #: [id number] CLICK HERE TO VIEW EXAM ECHOCARDIOGRAM REPORT [...] Area(A4C): 20.50 cm2 Left Atrium Systolic Volume(A2C): 71768 mm3 Left Atrium Systolic Volume(A4C): 50412 mm3 Mitral Valve MV E to A [...] Frazier M.D. on 09/28/2021 at 19:38 Normal [facility] Bilirubin, Directon 09-28-19 22 DBIL <0.2 Normal [facility] Comment on above: Result Comment: Refe rence range change 03/03/2017. Prior reference range 0.1-0.3 mg/dL. Performed By: #### C BCAD, MG, URIC, LIPD, PHOS, CMP, DBIL #### [facility] [address], [place] [id number] Complete Blood Count with Au to Diffon 09-27-2021 Basophils (Bld) [#/Vol] 0.06 10*3/uL Normal 0.00-0.20 [facility] Comment on above: Performed By: #### C BCAD, MG, URIC, LIPD, PHOS, CMP, DBIL #### [facility] [address], [place] [id number] Basophils/100 WBC (Bld) 1.0 % Normal [facility] Comment on above: Performed By: #### C BCAD, MG, URIC, LIPD, PHOS, CMP, DBIL #### [facility] [address], [place] [id number] Eosinophils (Bld) [#/Vol] 0.09 10*3/uL Normal 0.02-0.50 [facility] Comment on above: Performed By: #### C BCAD, MG, URIC, LIPD, PHOS, CMP, DBIL #### [facility] [address], [place] [id number] Eosinophils/100 WBC (Bld) 1.5 % Normal [facility] Comment on above: Performed By: #### C BCAD, MG, URIC, LIPD, PHOS, CMP, DBIL #### [facility] [address], [place] [id number] Erythrocyte distribution width (RBC) [Ratio] 14.1 % Normal 11.0-15.0 [facility] Comment on above: Performed By: #### C BCAD, MG, URIC, LIPD, PHOS, CMP, DBIL #### [facility] [address], [place] [id number] Hematocrit (Bld) [Volume fraction] 51.6 % High 38.5-50.0 [facility] Comment on above: Performed By: #### C BCAD, MG, URIC, LIPD, PHOS, CMP, DBIL #### [facility] [address], [place] [id number] Hemoglobin (Bld) [Mass/Vol] 16.5 g/dL Normal 13.0-17.1 [facility] Comment on above: Performed By: #### C BCAD, MG, URIC, LIPD, PHOS, CMP, DBIL #### [facility] [address], [place] [id number] Lymphocytes (Bld) [#/Vol] 1.0 10*3/uL Normal 0.9-3.9 [facility] Comment on above: Performed By: #### C BCAD, MG, URIC, LIPD, PHOS, CMP, DBIL #### [facility] [address], [place] [id number] Lymphocytes/100 WBC (Bld) 16.3 % Normal [facility] Comment on above: Performed By: #### C BCAD, MG, URIC, LIPD, PHOS, CMP, DBIL #### [facility] [address], [place] [id number] MCH (RBC) [Entitic mass] 29.9 pg Normal 27.0-33.0 [facility] Comment on above: Performed By: #### C BCAD, MG, URIC, LIPD, PHOS, CMP, DBIL #### [facility] [address], [place] [id number] MCHC (RBC) [Mass/Vol] 32.0 g/dL Normal 32.0-36.0 [facility] Comment on above: Performed By: #### C BCAD, MG, URIC, LIPD, PHOS, CMP, DBIL #### [facility] [address], [place] [id number] MCV (RBC) [Entitic vol] 94 fL Normal 80-100 [facility] Comment on above: Performed By: #### C BCAD, MG, URIC, LIPD, PHOS, CMP, DBIL #### [facility] [address], [place] [id number] Monocytes (Bld) [#/Vol] 0.7 10*3/uL Normal 0.2-0.9 [facility] Comment on above: Performed By: #### C BCAD, MG, URIC, LIPD, PHOS, CMP, DBIL #### [facility] [address], [place] [id number] Monocytes/100 WBC (Bld) 11.1 % Normal [facility] Comment on above: Performed By: #### C BCAD, MG, URIC, LIPD, PHOS, CMP, DBIL #### [facility] [address], [place] [id number] Neutrophils (Bld) [#/Vol] 4.2 10*3/uL Normal 1.5-7.8 [facility] Comment on above: Performed By: #### C BCAD, MG, URIC, LIPD, PHOS, CMP, DBIL #### [facility] [address], [place] [id number] Neutrophils/100 WBC (Bld) 69.8 % Normal [facility] Comment on above: Performed By: #### C BCAD, MG, URIC, LIPD, PHOS, CMP, DBIL #### [facility] [address], [place] [id number] Platelet mean volume (Bld) [Entitic vol] 10.80 fL Normal 7.50-12.50 [facility] Specialist Comment on above: Performed By: #### C BCAD, MG, URIC, LIPD, PHOS, CMP, DBIL #### [facility] [address], [place] [id number] Platelets (Bld) [#/Vol] 247 10*3/uL Normal 140-400 [facility] Specialist Comment on above: Performed By: #### C BCAD, MG, URIC, LIPD, PHOS, CMP, DBIL #### [facility] [address], [place] [id number] RBC (Bld) [#/Vol] 5.52 10*6/uL Normal 4.20-5.80 [facility] Specialist Comment on above: Performed By: #### C BCAD, MG, URIC, LIPD, PHOS, CMP, DBIL #### [facility] [address], [place] [id number] RDW-SD 48.9 fL Normal 37.0-50.0 [place] [facility] [employer] Operator Comment on above: Performed By: #### C BCAD, MG, URIC, LIPD, PHOS, CMP, DBIL #### [facility] [address], [place] [id number] WBC (Bld) [#/Vol] 6.0 10*3/uL Normal 3.8-11.0 [place] [facility] [employer] [facility] Comment on above: Performed By: #### C BCAD, MG, URIC, LIPD, PHOS, CMP, DBIL #### [facility] [address], [place] [id number] Comprehensive Metabolic Pane [facility] 09-27-2021 Albumin [Mass/Vol] 5.0 g/dL Normal 3.6-5.1 [place] [facility] [facility] [employer] Operator Comment on above: Performed By: #### C BCAD, MG, URIC, LIPD, PHOS, CMP, DBIL #### [facility] [address], [place] [id number] Albumin/Globulin [Mass ratio] 2.8 {ratio} High 1.0-2.5 [facility] [employer] Operator Comment on above: Performed By: #### C BCAD, MG, URIC, LIPD, PHOS, CMP, DBIL #### [facility] [address], [place] [id number] ALP [Catalytic activity/Vol] 79 U/L Normal 40-129 [facility] [employer] Operator Comment on above: Performed By: #### C BCAD, MG, URIC, LIPD, PHOS, CMP, DBIL #### [facility] [address], [place] [id number] ALT [Catalytic activity/Vol] 29 U/L Normal 9-46 [facility] [employer] Operator Comment on above: Result Comment: 03/17 Female reference range changed. Performed By: #### C BCAD, MG, URIC, LIPD, PHOS, CMP, DBIL #### [facility] [address], [place] [id number] Anion gap [Moles/Vol] 23 mmol/L High 12-20 [facility] [employer] Operator Comment on above: Result Comment: Effe ctive 04/22/2019 reference range changed. Performed By: #### C BCAD, MG, URIC, LIPD, PHOS, CMP, DBIL #### [facility] [address], [place] [id number] AST [Catalytic activity/Vol] 25 U/L Normal 10-40 [facility] Specialist Comment on above: Performed By: #### C BCAD, MG, URIC, LIPD, PHOS, CMP, DBIL #### [facility] [address], [place] [id number] Bilirubin [Mass/Vol] 0.66 mg/dL Normal 0.30-1.20 [facility] Specialist Comment on above: Performed By: #### C BCAD, MG, URIC, LIPD, PHOS, CMP, DBIL #### [facility] [address], [place] [id number] BUN/CREA 18 Ratio Normal 6-22 [facility] Specialist Comment on above: Performed By: #### C BCAD, MG, URIC, LIPD, PHOS, CMP, DBIL #### [facility] [address], [place] [id number] Calcium [Mass/Vol] 10.0 mg/dL Normal 8.6-10.2 [facility] Comment on above: Performed By: #### C BCAD, MG, URIC, LIPD, PHOS, CMP, DBIL #### [facility] [address], [place] [id number] Chloride [Moles/Vol] 105 mmol/L Normal 98-107 [facility] Specialist Comment on above: Performed By: #### C BCAD, MG, URIC, LIPD, PHOS, CMP, DBIL #### [facility] [address], [place] [id number] CO2 [Moles/Vol] 20 mmol/L Normal 20-31 [facility] Specialist Comment on above: Performed By: #### C BCAD, MG, URIC, LIPD, PHOS, CMP, DBIL #### [facility] [address], [place] [id number] Creatinine [Mass/Vol] 1.2 mg/dL Normal 0.7-1.4 [facility] Specialist Comment on above: Performed By: #### C BCAD, MG, URIC, LIPD, PHOS, CMP, DBIL #### [facility] [address], [place] [id number] eGFRAA 72 mL/min/1.73m2 Normal >60 [facility] Operator Comment on above: Performed By: #### C BCAD, MG, URIC, LIPD, PHOS, CMP, DBIL #### [facility] [address], [place] [id number] eGFRNAA 59 mL/min/1.73m2 Low >60 [facility] [employer] Operator Comment on above: Performed By: #### C BCAD, MG, URIC, LIPD, PHOS, CMP, DBIL #### [facility] [address], [place] [id number] Globulin (S) [Mass/Vol] 1.8 g/dL Low 1.9-3.7 [facility] Operator Comment on above: Performed By: #### C BCAD, MG, URIC, LIPD, PHOS, CMP, DBIL #### [facility] [address], [place] [id number] Glucose [Mass/Vol] 121 mg/dL High 65-99 [place] [facility] Operator Comment on above: Result Comment: For FASTING Glucose --- ADA reference ranges: Normal 65-99 mg/dl Prediabetes 100-125 Diabetes >/= 126 Performed By: #### C BCAD, MG, URIC, LIPD, PHOS, CMP, DBIL #### [facility] [address], [place] [id number] Potassium [Moles/Vol] 4.5 mmol/L Normal 3.5-5.5 [facility] Operator Comment on above: Performed By: #### C BCAD, MG, URIC, LIPD, PHOS, CMP, DBIL #### [facility] [address], [place] [id number] Protein [Mass/Vol] 6.8 g/dL Normal 6.1-8.1 [place] [facility] F[facility] Gluer Operator Comment on above: Performed By: #### C BCAD, MG, URIC, LIPD, PHOS, CMP, DBIL #### [facility] [address], [place] [id number] Sodium [Moles/Vol] 143 mmol/L Normal 135-146 [facility] Comment on above: Performed By: #### C BCAD, MG, URIC, LIPD, PHOS, CMP, DBIL #### [facility] [address], [place] [id number] Urea nitrogen [Mass/Vol] 23 mg/dL Normal 7-25 [facility] Specialist Comment on above: Performed By: #### C BCAD, MG, URIC, LIPD, PHOS, CMP, DBIL #### [facility] [address], [place] [id number] Lipid Panelon 09-27-2021 Cholesterol [Mass/Vol] 131 mg/dL Normal 125-200 [facility] Comment on above: Result Comment: Low risk < 200mg/dL Borderline risk 201-239 mg/dl High risk > or equal to 240 Performed By: #### C BCAD, MG, URIC, LIPD, PHOS, CMP, DBIL #### [facility] [address], [place] [id number] Cholesterol in HDL [Mass/Vol] 43 mg/dL Normal >40 [facility] Specialist Comment on above: Result Comment: High Cardiovascular Risk HDL <40 mg/dL Low Cardiovascular Risk HDL > or equal to 60 mg/dl Performed By: #### C BCAD, MG, URIC, LIPD, PHOS, CMP, DBIL #### [facility] [address], [place] [id number] Cholesterol in LDL [Mass/Vol] 52 mg/dL Normal [facility] Comment on above: Result Comment: LDL ATP III CLASSIFICATION LDL less than 100 mg/dl Optimal LDL 100-129 mg/dl Near or above optimal LDL 130-159 Borderline high LDL 160-189 High LDL greater than 189 mg/dl Very High Performed By: #### C BCAD, MG, URIC, LIPD, PHOS, CMP, DBIL #### [facility] [address], [place] [id number] Cholesterol in VLDL [Mass/Vol] 36 mg/dL Normal [facility] Specialist Comment on above: Performed By: #### C BCAD, MG, URIC, LIPD, PHOS, CMP, DBIL #### [facility] [address], [place] [id number] Cholesterol.total/C holesterol in HDL [Mass ratio] 3 {ratio} Normal [facility] Operator Comment on above: Performed By: #### C BCAD, MG, URIC, LIPD, PHOS, CMP, DBIL #### [facility] [address], [place] [id number] Triglyceride [Mass/Vol] 180 mg/dL High 30-150 [facility] Operator Comment on above: Result Comment: TRIG ATPIII CLASSIFICATIONS TRIG less than 150 mg/dl Normal TRIG 150-199 mg/dl Borderline High TRIG 200-500 mg/dl High TRIG greather than 500 mg/dl Very High Performed By: #### C BCAD, MG, URIC, LIPD, PHOS, CMP, DBIL #### [facility] [address], [place] [id number] Magnesiumon 09-27-2021 Magnesium [Mass/Vol] 1.9 mg/dL Normal 1.5-2.3 [facility] Operator Comment on above: Performed By: #### C BCAD, MG, URIC, LIPD, PHOS, CMP, DBIL #### [facility] [address], [place] [id number] Phosphoruson 09-27-2021 Phosphate [Mass/Vol] 3.6 mg/dL Normal 2.2-4.4 [facility] [employer] Operator Comment on above: Performed By: #### C BCAD, MG, URIC, LIPD, PHOS, CMP, DBIL #### [facility] [address], [place] [id number] Uric Acidon 09-27-2021 URIC 6.5 mg/dL Normal 4.0-8.0 [facility] Operator Comment on above: Result Comment: Cande echeverria range change 03/03/2017. Prior reference range F 2.4-5.7mg/dL. M 3.4-7.0 mg/dL. Performed By: #### C BCAD, MG, URIC, LIPD, PHOS, CMP, DBIL #### [facility] [address], [place] [id number] Bilirubin, Directon 08-25-19 22 DBIL <0.2 Normal [facility] [employer] Operator Comment on above: Result Comment: Cande echeverria range change 03/03/2017. Prior reference range 0.1-0.3 mg/dL. Performed By: #### C BCAD, MG, URIC, LIPD, PHOS, CMP, DBIL #### [facility] [address], [place] [id number] Complete Blood Count with Au to Diffon 08-24-2021 Basophils (Bld) [#/Vol] 0.06 10*3/uL Normal 0.00-0.20 [facility] Specialist Comment on above: Performed By: #### C BCAD, MG, URIC, LIPD, PHOS, CMP, DBIL #### [facility] [address], [place] [id number] Basophils/100 WBC (Bld) 1.1 % Normal [facility] Specialist Comment on above: Performed By: #### C BCAD, MG, URIC, LIPD, PHOS, CMP, DBIL #### [facility] [address], [place] [id number] Eosinophils (Bld) [#/Vol] 0.10 10*3/uL Normal 0.02-0.50 [facility] Specialist Comment on above: Performed By: #### C BCAD, MG, URIC, LIPD, PHOS, CMP, DBIL #### [facility] [address], [place] [id number] Eosinophils/100 WBC (Bld) 1.8 % Normal [facility] Specialist Comment on above: Performed By: #### C BCAD, MG, URIC, LIPD, PHOS, CMP, DBIL #### [facility] [address], [place] [id number] Erythrocyte distribution width (RBC) [Ratio] 14.5 % Normal 11.0-15.0 [facility] Specialist Comment on above: Performed By: #### C BCAD, MG, URIC, LIPD, PHOS, CMP, DBIL #### [facility] [address], [place] [id number] Hematocrit (Bld) [Volume fraction] 50.4 % High 38.5-50.0 [facility] Specialist Comment on above: Performed By: #### C BCAD, MG, URIC, LIPD, PHOS, CMP, DBIL #### [facility] [address], [place] [id number] Hemoglobin (Bld) [Mass/Vol] 16.4 g/dL Normal 13.0-17.1 [facility] Specialist Comment on above: Performed By: #### C BCAD, MG, URIC, LIPD, PHOS, CMP, DBIL #### [facility] [address], [place] [id number] Lymphocytes (Bld) [#/Vol] 0.9 10*3/uL Normal 0.9-3.9 [facility] Specialist Comment on above: Performed By: #### C BCAD, MG, URIC, LIPD, PHOS, CMP, DBIL #### [facility] [address], [place] [id number] Lymphocytes/100 WBC (Bld) 15.2 % Normal [facility] Specialist Comment on above: Performed By: #### C BCAD, MG, URIC, LIPD, PHOS, CMP, DBIL #### [facility] [address], [place] [id number] MCH (RBC) [Entitic mass] 30.5 pg Normal 27.0-33.0 [facility] Specialist Comment on above: Performed By: #### C BCAD, MG, URIC, LIPD, PHOS, CMP, DBIL #### [facility] [address], [place] [id number] MCHC (RBC) [Mass/Vol] 32.5 g/dL Normal 32.0-36.0 [facility] Specialist Comment on above: Performed By: #### C BCAD, MG, URIC, LIPD, PHOS, CMP, DBIL #### [facility] [address], [place] [id number] MCV (RBC) [Entitic vol] 94 fL Normal 80-100 [facility] Specialist Comment on above: Performed By: #### C BCAD, MG, URIC, LIPD, PHOS, CMP, DBIL #### [facility] [address], [place] [id number] Monocytes (Bld) [#/Vol] 0.7 10*3/uL Normal 0.2-0.9 [facility] Specialist Comment on above: Performed By: #### C BCAD, MG, URIC, LIPD, PHOS, CMP, DBIL #### [facility] [address], [place] [id number] Monocytes/100 WBC (Bld) 12.7 % Normal [facility] Specialist Comment on above: Performed By: #### C BCAD, MG, URIC, LIPD, PHOS, CMP, DBIL #### [facility] [address], [place] [id number] Neutrophils (Bld) [#/Vol] 3.9 10*3/uL Normal 1.5-7.8 [facility] Specialist Comment on above: Performed By: #### C BCAD, MG, URIC, LIPD, PHOS, CMP, DBIL #### [facility] [address], [place] [id number] Neutrophils/100 WBC (Bld) 68.7 % Normal [facility] Specialist Comment on above: Performed By: #### C BCAD, MG, URIC, LIPD, PHOS, CMP, DBIL #### [facility] [address], [place] [id number] Platelet mean volume (Bld) [Entitic vol] 11.20 fL Normal 7.50-12.50 [facility] Specialist Comment on above: Performed By: #### C BCAD, MG, URIC, LIPD, PHOS, CMP, DBIL #### [facility] [address], [place] [id number] Platelets (Bld) [#/Vol] 230 10*3/uL Normal 140-400 [facility] [employer] Operator Comment on above: Performed By: #### C BCAD, MG, URIC, LIPD, PHOS, CMP, DBIL #### [facility] [address], [place] [id number] RBC (Bld) [#/Vol] 5.38 10*6/uL Normal 4.20-5.80 [facility] Operator Comment on above: Performed By: #### C BCAD, MG, URIC, LIPD, PHOS, CMP, DBIL #### [facility] [address], [place] [id number] RDW-SD 49.1 fL Normal 37.0-50.0 [facility] [employer] Operator Comment on above: Performed By: #### C BCAD, MG, URIC, LIPD, PHOS, CMP, DBIL #### [facility] [address], [place] [id number] WBC (Bld) [#/Vol] 5.6 10*3/uL Normal 3.8-11.0 [place] [facility] Operator Comment on above: Performed By: #### C BCAD, MG, URIC, LIPD, PHOS, CMP, DBIL #### [facility] [address], [place] [id number] Comprehensive Metabolic Pane nitin 08-24-2021 Albumin [Mass/Vol] 5.0 g/dL Normal 3.6-5.1 [place] [facility] Folder Gluer Operator Comment on above: Performed By: #### C BCAD, MG, URIC, LIPD, PHOS, CMP, DBIL #### [facility] [address], [place] [id number] Albumin/Globulin [Mass ratio] 2.6 {ratio} High 1.0-2.5 [facility] Operator Comment on above: Performed By: #### C BCAD, MG, URIC, LIPD, PHOS, CMP, DBIL #### [facility] [address], [place] [id number] ALP [Catalytic activity/Vol] 75 U/L Normal 40-129 [facility] [employer] Operator Comment on above: Performed By: #### C BCAD, MG, URIC, LIPD, PHOS, CMP, DBIL #### [facility] [address], [place] [id number] ALT [Catalytic activity/Vol] 30 U/L Normal 9-46 [facility] Operator Comment on above: Result Comment: 03/17 Female reference range changed. Performed By: #### C BCAD, MG, URIC, LIPD, PHOS, CMP, DBIL #### [facility] [address], [place] [id number] Anion gap [Moles/Vol] 18 mmol/L Normal 12-20 [facility] Operator Comment on above: Result Comment: Effe ctive 04/22/2019 reference range changed. Performed By: #### C BCAD, MG, URIC, LIPD, PHOS, CMP, DBIL #### [facility] [address], [place] [id number] AST [Catalytic activity/Vol] 26 U/L Normal 10-40 [facility] Comment on above: Performed By: #### C BCAD, MG, URIC, LIPD, PHOS, CMP, DBIL #### [facility] [address], [place] [id number] Bilirubin [Mass/Vol] 0.67 mg/dL Normal 0.30-1.20 [facility] Specialist Comment on above: Performed By: #### C BCAD, MG, URIC, LIPD, PHOS, CMP, DBIL #### [facility] [address], [place] [id number] BUN/CREA 19 Ratio Normal 6-22 [facility] Specialist Comment on above: Performed By: #### C BCAD, MG, URIC, LIPD, PHOS, CMP, DBIL #### [facility] [address], [place] [id number] Calcium [Mass/Vol] 9.9 mg/dL Normal 8.6-10.2 [facility] Comment on above: Performed By: #### C BCAD, MG, URIC, LIPD, PHOS, CMP, DBIL #### [facility] [address], [place] [id number] Chloride [Moles/Vol] 103 mmol/L Normal 98-107 [facility] Specialist Comment on above: Performed By: #### C BCAD, MG, URIC, LIPD, PHOS, CMP, DBIL #### [facility] [address], [place] [id number] CO2 [Moles/Vol] 25 mmol/L Normal 20-31 [facility] Specialist Comment on above: Performed By: #### C BCAD, MG, URIC, LIPD, PHOS, CMP, DBIL #### [facility] [address], [place] [id number] Creatinine [Mass/Vol] 1.1 mg/dL Normal 0.7-1.4 [place] [facility] Operator Comment on above: Performed By: #### C BCAD, MG, URIC, LIPD, PHOS, CMP, DBIL #### [facility] [address], [place] [id number] eGFRAA 81 mL/min/1.73m2 Normal >60 [facility] [employer] Operator Comment on above: Performed By: #### C BCAD, MG, URIC, LIPD, PHOS, CMP, DBIL #### [facility] [address], [place] [id number] eGFRNAA 67 mL/min/1.73m2 Normal >60 [facility] [employer] Operator Comment on above: Performed By: #### C BCAD, MG, URIC, LIPD, PHOS, CMP, DBIL #### [facility] [address], [place] [id number] Globulin (S) [Mass/Vol] 1.9 g/dL Normal 1.9-3.7 [facility] [employer] Operator Comment on above: Performed By: #### C BCAD, MG, URIC, LIPD, PHOS, CMP, DBIL #### [facility] [address], [place] [id number] Glucose [Mass/Vol] 125 mg/dL High 65-99 [place] [employer] Operator Comment on above: Result Comment: For FASTING Glucose --- ADA reference ranges: Normal 65-99 mg/dl Prediabetes 100-125 Diabetes >/= 126 Performed By: #### C BCAD, MG, URIC, LIPD, PHOS, CMP, DBIL #### [facility] [address], [place] [id number] Potassium [Moles/Vol] 4.2 mmol/L Normal 3.5-5.5 [facility] Operator Comment on above: Performed By: #### C BCAD, MG, URIC, LIPD, PHOS, CMP, DBIL #### [facility] [address], [place] [id number] Protein [Mass/Vol] 6.9 g/dL Normal 6.1-8.1 [place] [facility] Operator Comment on above: Performed By: #### C BCAD, MG, URIC, LIPD, PHOS, CMP, DBIL #### [facility] [address], [place] [id number] Sodium [Moles/Vol] 141 mmol/L Normal 135-146 [facility] Comment on above: Performed By: #### C BCAD, MG, URIC, LIPD, PHOS, CMP, DBIL #### [facility] [address], [place] [id number] Urea nitrogen [Mass/Vol] 22 mg/dL Normal 7-25 [facility] Specialist Comment on above: Performed By: #### C BCAD, MG, URIC, LIPD, PHOS, CMP, DBIL #### [facility] [address], [place] [id number] Hemoglobin A1Con 08-24-2021 EAG 134.11 Normal [facility] Comment on above: Performed By: #### C BCAD, MG, URIC, LIPD, PHOS, CMP, DBIL #### [facility] [address], [place] [id number] HbA1c (Bld) [Mass fraction] 6.3 % High 4.0-6.0 [facility] Specialist Comment on above: Performed By: #### C BCAD, MG, URIC, LIPD, PHOS, CMP, DBIL #### [facility] [address], [place] [id number] Lipid Panelon 08-24-2021 Cholesterol [Mass/Vol] 110 mg/dL Low 125-200 [facility] Specialist Comment on above: Result Comment: Low risk < 200mg/dL Borderline risk 201-239 mg/dl High risk > or equal to 240 Performed By: #### C BCAD, MG, URIC, LIPD, PHOS, CMP, DBIL #### [facility] [address], [place] [id number] Cholesterol in HDL [Mass/Vol] 38 mg/dL Low >40 [facility] Specialist Comment on above: Result Comment: High Cardiovascular Risk HDL <40 mg/dL Low Cardiovascular Risk HDL > or equal to 60 mg/dl Performed By: #### C BCAD, MG, URIC, LIPD, PHOS, CMP, DBIL #### [facility] [address], [place] [id number] Cholesterol in LDL [Mass/Vol] 46 mg/dL Normal [facility] Specialist Comment on above: Result Comment: LDL ATP III CLASSIFICATION LDL less than 100 mg/dl Optimal LDL 100-129 mg/dl Near or above optimal LDL 130-159 Borderline high LDL 160-189 High LDL greater than 189 mg/dl Very High Performed By: #### C BCAD, MG, URIC, LIPD, PHOS, CMP, DBIL #### [facility] [address], [place] [id number] Cholesterol in VLDL [Mass/Vol] 26 mg/dL Normal [facility] Specialist Comment on above: Performed By: #### C BCAD, MG, URIC, LIPD, PHOS, CMP, DBIL #### [facility] [address], [place] [id number] Cholesterol.total/C holesterol in HDL [Mass ratio] 3 {ratio} Normal [facility] Specialist Comment on above: Performed By: #### C BCAD, MG, URIC, LIPD, PHOS, CMP, DBIL #### [facility] [address], [place] [id number] Triglyceride [Mass/Vol] 131 mg/dL Normal 30-150 [facility] Operator Comment on above: Result Comment: TRIG ATPIII CLASSIFICATIONS TRIG less than 150 mg/dl Normal TRIG 150-199 mg/dl Borderline High TRIG 200-500 mg/dl High TRIG greather than 500 mg/dl Very High Performed By: #### C BCAD, MG, URIC, LIPD, PHOS, CMP, DBIL #### [facility] [address], [place] [id number] Magnesiumon 08-24-2021 Magnesium [Mass/Vol] 2.0 mg/dL Normal 1.5-2.3 [facility] Operator Comment on above: Performed By: #### C BCAD, MG, URIC, LIPD, PHOS, CMP, DBIL #### [facility] [address], [place] [id number] Phosphoruson 08-24-2021 Phosphate [Mass/Vol] 3.5 mg/dL Normal 2.2-4.4 [facility] Operator Comment on above: Performed By: #### C BCAD, MG, URIC, LIPD, PHOS, CMP, DBIL #### [facility] [address], [place] [id number] Uric Acidon 08-24-2021 URIC 6.6 mg/dL Normal 4.0-8.0 [facility] [employer] Operator Comment on above: Result Comment: Refe rence range change 03/03/2017. Prior reference range F 2.4-5.7mg/dL. M 3.4-7.0 mg/dL. Performed By: #### C BCAD, MG, URIC, LIPD, PHOS, CMP, DBIL #### [facility] [address], [place] [id number] Bilirubin, Directon 07-30-19 22 DBIL <0.2 Normal [facility] Operator Comment on above: Result Comment: Refe rence range change 03/03/2017. Prior reference range 0.1-0.3 mg/dL. Performed By: #### C BCAD, MG, URIC, LIPD, PHOS, CMP, DBIL #### [facility] [address], [place] [id number] Complete Blood Count with Au to Diffon 07-29-2021 Basophils (Bld) [#/Vol] 0.07 10*3/uL Normal 0.00-0.20 [facility] [employer] Operator Comment on above: Performed By: #### C BCAD, MG, URIC, LIPD, PHOS, CMP, DBIL #### [facility] [address], [place] [id number] Basophils/100 WBC (Bld) 1.1 % Normal [facility] [employer] Operator Comment on above: Performed By: #### C BCAD, MG, URIC, LIPD, PHOS, CMP, DBIL #### [facility] [address], [place] [id number] Eosinophils (Bld) [#/Vol] 0.15 10*3/uL Normal 0.02-0.50 [facility] [employer] Operator Comment on above: Performed By: #### C BCAD, MG, URIC, LIPD, PHOS, CMP, DBIL #### [facility] [address], [place] [id number] Eosinophils/100 WBC (Bld) 2.4 % Normal [place] [facility] [employer] [facility] Comment on above: Performed By: #### C BCAD, MG, URIC, LIPD, PHOS, CMP, DBIL #### [facility] [address], [place] [id number] Erythrocyte distribution width (RBC) [Ratio] 14.0 % Normal 11.0-15.0 [facility] Specialist Comment on above: Performed By: #### C BCAD, MG, URIC, LIPD, PHOS, CMP, DBIL #### [facility] [address], [place] [id number] Hematocrit (Bld) [Volume fraction] 50.3 % High 38.5-50.0 [facility] Specialist Comment on above: Performed By: #### C BCAD, MG, URIC, LIPD, PHOS, CMP, DBIL #### [facility] [address], [place] [id number] Hemoglobin (Bld) [Mass/Vol] 16.5 g/dL Normal 13.0-17.1 [facility] Specialist Comment on above: Performed By: #### C BCAD, MG, URIC, LIPD, PHOS, CMP, DBIL #### [facility] [address], [place] [id number] Lymphocytes (Bld) [#/Vol] 0.9 10*3/uL Normal 0.9-3.9 [facility] Specialist Comment on above: Performed By: #### C BCAD, MG, URIC, LIPD, PHOS, CMP, DBIL #### [facility] [address], [place] [id number] Lymphocytes/100 WBC (Bld) 13.4 % Normal [facility] Specialist Comment on above: Performed By: #### C BCAD, MG, URIC, LIPD, PHOS, CMP, DBIL #### [facility] [address], [place] [id number] MCH (RBC) [Entitic mass] 29.9 pg Normal 27.0-33.0 [facility] Specialist Comment on above: Performed By: #### C BCAD, MG, URIC, LIPD, PHOS, CMP, DBIL #### [facility] [address], [place] [id number] MCHC (RBC) [Mass/Vol] 32.8 g/dL Normal 32.0-36.0 [facility] Specialist Comment on above: Performed By: #### C BCAD, MG, URIC, LIPD, PHOS, CMP, DBIL #### [facility] [address], [place] [id number] MCV (RBC) [Entitic vol] 91 fL Normal 80-100 [facility] Specialist Comment on above: Performed By: #### C BCAD, MG, URIC, LIPD, PHOS, CMP, DBIL #### [facility] [address], [place] [id number] Monocytes (Bld) [#/Vol] 0.5 10*3/uL Normal 0.2-0.9 [facility] Specialist Comment on above: Performed By: #### C BCAD, MG, URIC, LIPD, PHOS, CMP, DBIL #### [facility] [address], [place] [id number] Monocytes/100 WBC (Bld) 8.5 % Normal [facility] Specialist Comment on above: Performed By: #### C BCAD, MG, URIC, LIPD, PHOS, CMP, DBIL #### [facility] [address], [place] [id number] Neutrophils (Bld) [#/Vol] 4.7 10*3/uL Normal 1.5-7.8 [facility] Folder Gluer Operator Comment on above: Performed By: #### C BCAD, MG, URIC, LIPD, PHOS, CMP, DBIL #### [facility] [address], [place] [id number] Neutrophils/100 WBC (Bld) 73.8 % Normal [facility] Specialist Comment on above: Performed By: #### C BCAD, MG, URIC, LIPD, PHOS, CMP, DBIL #### [facility] [address], [place] [id number] Platelet mean volume (Bld) [Entitic vol] 10.40 fL Normal 7.50-12.50 [facility] Gl[employer] Operator Comment on above: Performed By: #### C BCAD, MG, URIC, LIPD, PHOS, CMP, DBIL #### [facility] [address], [place] [id number] Platelets (Bld) [#/Vol] 266 10*3/uL Normal 140-400 [facility] Operator Comment on above: Performed By: #### C BCAD, MG, URIC, LIPD, PHOS, CMP, DBIL #### [facility] [address], [place] [id number] RBC (Bld) [#/Vol] 5.51 10*6/uL Normal 4.20-5.80 [facility] Specialist Comment on above: Performed By: #### C BCAD, MG, URIC, LIPD, PHOS, CMP, DBIL #### [facility] [address], [place] [id number] RDW-SD 47.4 fL Normal 37.0-50.0 [facility] Operator Comment on above: Performed By: #### C BCAD, MG, URIC, LIPD, PHOS, CMP, DBIL #### [facility] [address], [place] [id number] WBC (Bld) [#/Vol] 6.3 10*3/uL Normal 3.8-11.0 [place] [facility] Folder Gluer Operator Comment on above: Performed By: #### C BCAD, MG, URIC, LIPD, PHOS, CMP, DBIL #### [facility] [address], [place] [id number] Comprehensive Metabolic Pane [facility] 07-29-2021 Albumin [Mass/Vol] 5.0 g/dL Normal 3.6-5.1 [place] [facility] Folder Gluer Operator Comment on above: Performed By: #### C BCAD, MG, URIC, LIPD, PHOS, CMP, DBIL #### [facility] [address], [place] [id number] Albumin/Globulin [Mass ratio] 2.6 {ratio} High 1.0-2.5 [facility] Operator Comment on above: Performed By: #### C BCAD, MG, URIC, LIPD, PHOS, CMP, DBIL #### [facility] [address], [place] [id number] ALP [Catalytic activity/Vol] 73 U/L Normal 40-129 [facility] Specialist Comment on above: Performed By: #### C BCAD, MG, URIC, LIPD, PHOS, CMP, DBIL #### [facility] [address], [place] [id number] ALT [Catalytic activity/Vol] 27 U/L Normal 9-46 [facility] Specialist Comment on above: Result Comment: 03/17 Female reference range changed. Performed By: #### C BCAD, MG, URIC, LIPD, PHOS, CMP, DBIL #### [facility] [address], [place] [id number] Anion gap [Moles/Vol] 18 mmol/L Normal 12-20 [facility] Specialist Comment on above: Result Comment: Effe ctive 04/22/2019 reference range changed. Performed By: #### C BCAD, MG, URIC, LIPD, PHOS, CMP, DBIL #### [facility] [address], [place] [id number] AST [Catalytic activity/Vol] 23 U/L Normal 10-40 [facility] Specialist Comment on above: Performed By: #### C BCAD, MG, URIC, LIPD, PHOS, CMP, DBIL #### [facility] [address], [place] [id number] Bilirubin [Mass/Vol] 0.68 mg/dL Normal 0.30-1.20 [facility] Specialist Comment on above: Performed By: #### C BCAD, MG, URIC, LIPD, PHOS, CMP, DBIL #### [facility] [address], [place] [id number] BUN/CREA 16 Ratio Normal 6-22 [facility] Specialist Comment on above: Performed By: #### C BCAD, MG, URIC, LIPD, PHOS, CMP, DBIL #### [facility] [address], [place] [id number] Calcium [Mass/Vol] 10.0 mg/dL Normal 8.6-10.2 [facility] Comment on above: Performed By: #### C BCAD, MG, URIC, LIPD, PHOS, CMP, DBIL #### [facility] [address], [place] [id number] Chloride [Moles/Vol] 103 mmol/L Normal 98-107 [facility] Comment on above: Performed By: #### C BCAD, MG, URIC, LIPD, PHOS, CMP, DBIL #### [facility] [address], [place] [id number] CO2 [Moles/Vol] 25 mmol/L Normal 20-31 [facility] Specialist Comment on above: Performed By: #### C BCAD, MG, URIC, LIPD, PHOS, CMP, DBIL #### [facility] [address], [place] [id number] Creatinine [Mass/Vol] 1.1 mg/dL Normal 0.7-1.4 [facility] Specialist Comment on above: Performed By: #### C BCAD, MG, URIC, LIPD, PHOS, CMP, DBIL #### [facility] [address], [place] [id number] eGFRAA 80 mL/min/1.73m2 Normal >60 [facility] Specialist Comment on above: Performed By: #### C BCAD, MG, URIC, LIPD, PHOS, CMP, DBIL #### [facility] [address], [place] [id number] eGFRNAA 66 mL/min/1.73m2 Normal >60 [facility] Specialist Comment on above: Performed By: #### C BCAD, MG, URIC, LIPD, PHOS, CMP, DBIL #### [facility] [address], [place] [id number] Globulin (S) [Mass/Vol] 1.9 g/dL Normal 1.9-3.7 [facility] Comment on above: Performed By: #### C BCAD, MG, URIC, LIPD, PHOS, CMP, DBIL #### [facility] [address], [place] [id number] Glucose [Mass/Vol] 109 mg/dL High 65-99 [facility] Comment on above: Result Comment: For FASTING Glucose --- ADA reference ranges: Normal 65-99 mg/dl Prediabetes 100-125 Diabetes >/= 126 Performed By: #### C BCAD, MG, URIC, LIPD, PHOS, CMP, DBIL #### [facility] [address], [place] [id number] Potassium [Moles/Vol] 4.7 mmol/L Normal 3.5-5.5 [facility] [employer] Operator Comment on above: Performed By: #### C BCAD, MG, URIC, LIPD, PHOS, CMP, DBIL #### [facility] [address], [place] [id number] Protein [Mass/Vol] 6.9 g/dL Normal 6.1-8.1 [facility] Folder Gl[facility] Operator Comment on above: Performed By: #### C BCAD, MG, URIC, LIPD, PHOS, CMP, DBIL #### [facility] [address], [place] [id number] Sodium [Moles/Vol] 141 mmol/L Normal 135-146 [facility] F[facility] Gl[facility] Operator Comment on above: Performed By: #### C BCAD, MG, URIC, LIPD, PHOS, CMP, DBIL #### [facility] [address], [place] [id number] Urea nitrogen [Mass/Vol] 18 mg/dL Normal 7-25 [facility] Operator Comment on above: Performed By: #### C BCAD, MG, URIC, LIPD, PHOS, CMP, DBIL #### [facility] [address], [place] [id number] Lipid Panelon 07-29-2021 Cholesterol [Mass/Vol] 121 mg/dL Low 125-200 [facility] Operator Comment on above: Result Comment: Low risk < 200mg/dL Borderline risk 201-239 mg/dl High risk > or equal to 240 Performed By: #### C BCAD, MG, URIC, LIPD, PHOS, CMP, DBIL #### [facility] [address], [place] [id number] Cholesterol in HDL [Mass/Vol] 41 mg/dL Normal >40 [facility] Gl[employer] Operator Comment on above: Result Comment: High Cardiovascular Risk HDL <40 mg/dL Low Cardiovascular Risk HDL > or equal to 60 mg/dl Performed By: #### C BCAD, MG, URIC, LIPD, PHOS, CMP, DBIL #### [facility] [address], [place] [id number] Cholesterol in LDL [Mass/Vol] 56 mg/dL Normal [facility] Gl[employer] Operator Comment on above: Result Comment: LDL ATP III CLASSIFICATION LDL less than 100 mg/dl Optimal LDL 100-129 mg/dl Near or above optimal LDL 130-159 Borderline high LDL 160-189 High LDL greater than 189 mg/dl Very High Performed By: #### C BCAD, MG, URIC, LIPD, PHOS, CMP, DBIL #### [facility] [address], [place] [id number] Cholesterol in VLDL [Mass/Vol] 24 mg/dL Normal [facility] Gl[employer] Operator Comment on above: Performed By: #### C BCAD, MG, URIC, LIPD, PHOS, CMP, DBIL #### [facility] [address], [place] [id number] Cholesterol.total/C holesterol in HDL [Mass ratio] 3 {ratio} Normal [facility] [employer] Operator Comment on above: Performed By: #### C BCAD, MG, URIC, LIPD, PHOS, CMP, DBIL #### [facility] [address], [place] [id number] Triglyceride [Mass/Vol] 118 mg/dL Normal 30-150 [facility] Operator Comment on above: Result Comment: TRIG ATPIII CLASSIFICATIONS TRIG less than 150 mg/dl Normal TRIG 150-199 mg/dl Borderline High TRIG 200-500 mg/dl High TRIG greather than 500 mg/dl Very High Performed By: #### C BCAD, MG, URIC, LIPD, PHOS, CMP, DBIL #### [facility] [address], [place] [id number] Magnesiumon 07-29-2021 Magnesium [Mass/Vol] 2.0 mg/dL Normal 1.5-2.3 [facility] [employer] Operator Comment on above: Performed By: #### C BCAD, MG, URIC, LIPD, PHOS, CMP, DBIL #### [facility] [address], [place] [id number] Phosphoruson 07-29-2021 Phosphate [Mass/Vol] 3.3 mg/dL Normal 2.2-4.4 [facility] [employer] Operator Comment on above: Performed By: #### C BCAD, MG, URIC, LIPD, PHOS, CMP, DBIL #### [facility] [address], [place] [id number] Q - TACROLIMUSon 07-29-2021 TACROLIMUS, HIGHLY SENSITIVE, LC/MS/MS 6.3 mcg/L Normal [facility] Operator Comment on above: Order Comment: Quest performed at: [facility], [facility], [address] [facility], [address] [place] [address], [id number], Shortage Worker: Shaheed Bazzi MDQuest Collection Date/Time: [id number] Results Received Date/Time: [id number] Reported Date/Time: Result Comment: No d efinitive therapeutic or toxic ranges have been established. Optimal blood drug levels are influenced by type of transplant, patient response, time post- transplant, co-administration of other drugs, and drug formulation. The following trough range is a suggested guideline: 5.0-20.0 mcg/L. This test was developed and its analytical performance characteristics have been determined by [employer]. It has not been cleared or approved by the FDA. This assay has been validated pursuant to the CLIA regulations and is used for clinical purposes. Performed By: #### C BCAD, MG, URIC, LIPD, PHOS, CMP, DBIL #### [facility] [address], [place] [id number] Uric Acidon 07-29-2021 URIC 6.1 mg/dL Normal 4.0-8.0 [facility] Specialist Comment on above: Result Comment: Refe rence range change 03/03/2017. Prior reference range F 2.4-5.7mg/dL. M 3.4-7.0 mg/dL. Performed By: #### C BCAD, MG, URIC, LIPD, PHOS, CMP, DBIL #### [facility] [address], [place] [id number] Bilirubin, Directon 06-29-19 DBIL <0.2 Normal [facility] Specialist Comment on above: Result Comment: Refe rence range change 03/03/2017. Prior reference range 0.1-0.3 mg/dL. Performed By: #### C BCAD, MG, URIC, LIPD, PHOS, CMP, DBIL #### [facility] [address], [place] [id number] Complete Blood Count with Au to Diffon 06-28-2021 Basophils (Bld) [#/Vol] 0.05 10*3/uL Normal 0.00-0.20 [facility] Specialist Comment on above: Performed By: #### C BCAD, MG, URIC, LIPD, PHOS, CMP, DBIL #### [facility] [address], [place] [id number] Basophils/100 WBC (Bld) 0.8 % Normal [facility] [employer] Operator Comment on above: Performed By: #### C BCAD, MG, URIC, LIPD, PHOS, CMP, DBIL #### [facility] [address], [place] [id number] Eosinophils (Bld) [#/Vol] 0.10 10*3/uL Normal 0.02-0.50 [facility] [employer] Operator Comment on above: Performed By: #### C BCAD, MG, URIC, LIPD, PHOS, CMP, DBIL #### [facility] [address], [place] [id number] Eosinophils/100 WBC (Bld) 1.6 % Normal [facility] [employer] Operator Comment on above: Performed By: #### C BCAD, MG, URIC, LIPD, PHOS, CMP, DBIL #### [facility] [address], [place] [id number] Erythrocyte distribution width (RBC) [Ratio] 14.6 % Normal 11.0-15.0 [facility] Gl[employer] Operator Comment on above: Performed By: #### C BCAD, MG, URIC, LIPD, PHOS, CMP, DBIL #### [facility] [address], [place] [id number] Hematocrit (Bld) [Volume fraction] 50.7 % High 38.5-50.0 [facility] [employer] Operator Comment on above: Performed By: #### C BCAD, MG, URIC, LIPD, PHOS, CMP, DBIL #### [facility] [address], [place] [id number] Hemoglobin (Bld) [Mass/Vol] 16.2 g/dL Normal 13.0-17.1 [facility] Specialist Comment on above: Performed By: #### C BCAD, MG, URIC, LIPD, PHOS, CMP, DBIL #### [facility] [address], [place] [id number] Lymphocytes (Bld) [#/Vol] 1.0 10*3/uL Normal 0.9-3.9 [facility] Specialist Comment on above: Performed By: #### C BCAD, MG, URIC, LIPD, PHOS, CMP, DBIL #### [facility] [address], [place] [id number] Lymphocytes/100 WBC (Bld) 16.2 % Normal [facility] Specialist Comment on above: Performed By: #### C BCAD, MG, URIC, LIPD, PHOS, CMP, DBIL #### [facility] [address], [place] [id number] MCH (RBC) [Entitic mass] 30.0 pg Normal 27.0-33.0 [facility] Specialist Comment on above: Performed By: #### C BCAD, MG, URIC, LIPD, PHOS, CMP, DBIL #### [facility] [address], [place] [id number] MCHC (RBC) [Mass/Vol] 32.0 g/dL Normal 32.0-36.0 [facility] Specialist Comment on above: Performed By: #### C BCAD, MG, URIC, LIPD, PHOS, CMP, DBIL #### [facility] [address], [place] [id number] MCV (RBC) [Entitic vol] 94 fL Normal 80-100 [facility] Specialist Comment on above: Performed By: #### C BCAD, MG, URIC, LIPD, PHOS, CMP, DBIL #### [facility] [address], [place] [id number] Monocytes (Bld) [#/Vol] 0.9 10*3/uL Normal 0.2-0.9 [facility] Specialist Comment on above: Performed By: #### C BCAD, MG, URIC, LIPD, PHOS, CMP, DBIL #### [facility] [address], [place] [id number] Monocytes/100 WBC (Bld) 13.4 % Normal [facility] Comment on above: Performed By: #### C BCAD, MG, URIC, LIPD, PHOS, CMP, DBIL #### [facility] [address], [place] [id number] Neutrophils (Bld) [#/Vol] 4.3 10*3/uL Normal 1.5-7.8 [facility] Specialist Comment on above: Performed By: #### C BCAD, MG, URIC, LIPD, PHOS, CMP, DBIL #### [facility] [address], [place] [id number] Neutrophils/100 WBC (Bld) 67.7 % Normal [facility] Comment on above: Performed By: #### C BCAD, MG, URIC, LIPD, PHOS, CMP, DBIL #### [facility] [address], [place] [id number] Platelet mean volume (Bld) [Entitic vol] 11.00 fL Normal 7.50-12.50 [facility] Specialist Comment on above: Performed By: #### C BCAD, MG, URIC, LIPD, PHOS, CMP, DBIL #### [facility] [address], [place] [id number] Platelets (Bld) [#/Vol] 239 10*3/uL Normal 140-400 [facility] Specialist Comment on above: Performed By: #### C BCAD, MG, URIC, LIPD, PHOS, CMP, DBIL #### [facility] [address], [place] [id number] RBC (Bld) [#/Vol] 5.40 10*6/uL Normal 4.20-5.80 [facility] Specialist Comment on above: Performed By: #### C BCAD, MG, URIC, LIPD, PHOS, CMP, DBIL #### [facility] [address], [place] [id number] RDW-SD 50.2 fL High 37.0-50.0 [facility] F[facility] Gl[employer] Operator Comment on above: Performed By: #### C BCAD, MG, URIC, LIPD, PHOS, CMP, DBIL #### [facility] [address], [place] [id number] WBC (Bld) [#/Vol] 6.4 10*3/uL Normal 3.8-11.0 [place] [facility] Operator Comment on above: Performed By: #### C BCAD, MG, URIC, LIPD, PHOS, CMP, DBIL #### [facility] [address], [place] [id number] Comprehensive Metabolic Pane nitin 06-28-2021 Albumin [Mass/Vol] 4.9 g/dL Normal 3.6-5.1 [place] [facility] [facility] Operator Comment on above: Performed By: #### C BCAD, MG, URIC, LIPD, PHOS, CMP, DBIL #### [facility] [address], [place] [id number] Albumin/Globulin [Mass ratio] 3.3 {ratio} High 1.0-2.5 [facility] Operator Comment on above: Performed By: #### C BCAD, MG, URIC, LIPD, PHOS, CMP, DBIL #### [facility] [address], [place] [id number] ALP [Catalytic activity/Vol] 73 U/L Normal 40-129 [facility] Gl[facility] Operator Comment on above: Performed By: #### C BCAD, MG, URIC, LIPD, PHOS, CMP, DBIL #### [facility] [address], [place] [id number] ALT [Catalytic activity/Vol] 26 U/L Normal 9-46 [facility] Gl[facility] Operator Comment on above: Result Comment: 03/17 Female reference range changed. Performed By: #### C BCAD, MG, URIC, LIPD, PHOS, CMP, DBIL #### [facility] [address], [place] [id number] Anion gap [Moles/Vol] 16 mmol/L Normal 12-20 [facility] F[facility] Gl[facility] Operator Comment on above: Result Comment: Effe ctive 04/22/2019 reference range changed. Performed By: #### C BCAD, MG, URIC, LIPD, PHOS, CMP, DBIL #### [facility] [address], [place] [id number] AST [Catalytic activity/Vol] 23 U/L Normal 10-40 [facility] Specialist Comment on above: Performed By: #### C BCAD, MG, URIC, LIPD, PHOS, CMP, DBIL #### [facility] [address], [place] [id number] Bilirubin [Mass/Vol] 0.76 mg/dL Normal 0.30-1.20 [facility] Specialist Comment on above: Performed By: #### C BCAD, MG, URIC, LIPD, PHOS, CMP, DBIL #### [facility] [address], [place] [id number] BUN/CREA 15 Ratio Normal 6-22 [facility] Specialist Comment on above: Performed By: #### C BCAD, MG, URIC, LIPD, PHOS, CMP, DBIL #### [facility] [address], [place] [id number] Calcium [Mass/Vol] 9.8 mg/dL Normal 8.6-10.2 [facility] Comment on above: Performed By: #### C BCAD, MG, URIC, LIPD, PHOS, CMP, DBIL #### [facility] [address], [place] [id number] Chloride [Moles/Vol] 103 mmol/L Normal 98-107 [facility] Specialist Comment on above: Performed By: #### C BCAD, MG, URIC, LIPD, PHOS, CMP, DBIL #### [facility] [address], [place] [id number] CO2 [Moles/Vol] 26 mmol/L Normal 20-31 [facility] Specialist Comment on above: Performed By: #### C BCAD, MG, URIC, LIPD, PHOS, CMP, DBIL #### [facility] [address], [place] [id number] Creatinine [Mass/Vol] 1.1 mg/dL Normal 0.7-1.4 [facility] Specialist Comment on above: Performed By: #### C BCAD, MG, URIC, LIPD, PHOS, CMP, DBIL #### [facility] [address], [place] [id number] eGFRAA 80 mL/min/1.73m2 Normal >60 [facility] F[facility] Gluer Operator Comment on above: Performed By: #### C BCAD, MG, URIC, LIPD, PHOS, CMP, DBIL #### [facility] [address], [place] [id number] eGFRNAA 66 mL/min/1.73m2 Normal >60 [facility] F[facility] Gluer Operator Comment on above: Performed By: #### C BCAD, MG, URIC, LIPD, PHOS, CMP, DBIL #### [facility] [address], [place] [id number] Globulin (S) [Mass/Vol] 1.5 g/dL Low 1.9-3.7 [facility] Gl[employer] Operator Comment on above: Performed By: #### C BCAD, MG, URIC, LIPD, PHOS, CMP, DBIL #### [facility] [address], [place] [id number] Glucose [Mass/Vol] 130 mg/dL High 65-99 [place] [facility] Operator Comment on above: Result Comment: For FASTING Glucose --- ADA reference ranges: Normal 65-99 mg/dl Prediabetes 100-125 Diabetes >/= 126 Performed By: #### C BCAD, MG, URIC, LIPD, PHOS, CMP, DBIL #### [facility] [address], [place] [id number] Potassium [Moles/Vol] 4.6 mmol/L Normal 3.5-5.5 [facility] Gl[employer] Operator Comment on above: Performed By: #### C BCAD, MG, URIC, LIPD, PHOS, CMP, DBIL #### [facility] [address], [place] [id number] Protein [Mass/Vol] 6.4 g/dL Normal 6.1-8.1 [place] [facility] Operator Comment on above: Performed By: #### C BCAD, MG, URIC, LIPD, PHOS, CMP, DBIL #### [facility] [address], [place] [id number] Sodium [Moles/Vol] 140 mmol/L Normal 135-146 [facility] Specialist Comment on above: Performed By: #### C BCAD, MG, URIC, LIPD, PHOS, CMP, DBIL #### [facility] [address], [place] [id number] Urea nitrogen [Mass/Vol] 17 mg/dL Normal 7-25 [facility] Specialist Comment on above: Performed By: #### C BCAD, MG, URIC, LIPD, PHOS, CMP, DBIL #### [facility] [address], [place] [id number] Lipid Panelon 06-28-2021 Cholesterol [Mass/Vol] 111 mg/dL Low 125-200 [facility] Specialist Comment on above: Result Comment: Low risk < 200mg/dL Borderline risk 201-239 mg/dl High risk > or equal to 240 Performed By: #### C BCAD, MG, URIC, LIPD, PHOS, CMP, DBIL #### [facility] [address], [place] [id number] Cholesterol in HDL [Mass/Vol] 38 mg/dL Low >40 [facility] Specialist Comment on above: Result Comment: High Cardiovascular Risk HDL <40 mg/dL Low Cardiovascular Risk HDL > or equal to 60 mg/dl Performed By: #### C BCAD, MG, URIC, LIPD, PHOS, CMP, DBIL #### [facility] [address], [place] [id number] Cholesterol in LDL [Mass/Vol] 47 mg/dL Normal [facility] Specialist Comment on above: Result Comment: LDL ATP III CLASSIFICATION LDL less than 100 mg/dl Optimal LDL 100-129 mg/dl Near or above optimal LDL 130-159 Borderline high LDL 160-189 High LDL greater than 189 mg/dl Very High Performed By: #### C BCAD, MG, URIC, LIPD, PHOS, CMP, DBIL #### [facility] [address], [place] [id number] Cholesterol in VLDL [Mass/Vol] 26 mg/dL Normal [facility] Specialist Comment on above: Performed By: #### C BCAD, MG, URIC, LIPD, PHOS, CMP, DBIL #### [facility] [address], [place] [id number] Cholesterol.total/C holesterol in HDL [Mass ratio] 3 {ratio} Normal [facility] [employer] Operator Comment on above: Performed By: #### C BCAD, MG, URIC, LIPD, PHOS, CMP, DBIL #### [facility] [address], [place] [id number] Triglyceride [Mass/Vol] 132 mg/dL Normal 30-150 [facility] Gl[employer] Operator Comment on above: Result Comment: TRIG ATPIII CLASSIFICATIONS TRIG less than 150 mg/dl Normal TRIG 150-199 mg/dl Borderline High TRIG 200-500 mg/dl High TRIG greather than 500 mg/dl Very High Performed By: #### C BCAD, MG, URIC, LIPD, PHOS, CMP, DBIL #### [facility] [address], [place] [id number] Magnesiumon 06-28-2021 Magnesium [Mass/Vol] 1.7 mg/dL Normal 1.5-2.3 [facility] Operator Comment on above: Performed By: #### C BCAD, MG, URIC, LIPD, PHOS, CMP, DBIL #### [facility] [address], [place] [id number] Phosphoruson 06-28-2021 Phosphate [Mass/Vol] 3.7 mg/dL Normal 2.2-4.4 [facility] Specialist Comment on above: Performed By: #### C BCAD, MG, URIC, LIPD, PHOS, CMP, DBIL #### [facility] [address], [place] [id number] Uric Acidon 06-28-2021 URIC 6.0 mg/dL Normal 4.0-8.0 [facility] Specialist Comment on above: Result Comment: Refe rence range change 03/03/2017. Prior reference range F 2.4-5.7mg/dL. M 3.4-7.0 mg/dL. Performed By: #### C BCAD, MG, URIC, LIPD, PHOS, CMP, DBIL #### [facility] [address], [place] [id number] Pulmonary Functionon 022 Pulmonary Function MR #: [id number] [facility] PT. Name: Vishal Duke Date: 06/02/2021 [...] Syed MD Date Trans: 06/06/2021 02:28 P/ [id number] cc: Rosa M Gonzales M.D. [address] [place] [address] [facility] [address] Normal [facility] Bilirubin, Directon 06-01-19 22 DBIL <0.2 Normal [facility] Operator Comment on above: Result Comment: Refe rence range change 03/03/2017. Prior reference range 0.1-0.3 mg/dL. Performed By: #### C BCAD, MG, URIC, LIPD, PHOS, CMP, DBIL #### [facility] [address] [place], [place] [id number] Complete Blood Count with Au to Diffon 06-01-2021 Basophils (Bld) [#/Vol] 0.06 10*3/uL Normal 0.00-0.20 [facility] Operator Comment on above: Performed By: #### C BCAD, MG, URIC, LIPD, PHOS, CMP, DBIL #### [facility] [address], [place] [id number] Basophils/100 WBC (Bld) 0.9 % Normal [facility] Specialist Comment on above: Performed By: #### C BCAD, MG, URIC, LIPD, PHOS, CMP, DBIL #### [facility] [address], [place] [id number] Eosinophils (Bld) [#/Vol] 0.12 10*3/uL Normal 0.02-0.50 [facility] Specialist Comment on above: Performed By: #### C BCAD, MG, URIC, LIPD, PHOS, CMP, DBIL #### [facility] [address], [place] [id number] Eosinophils/100 WBC (Bld) 1.8 % Normal [facility] Specialist Comment on above: Performed By: #### C BCAD, MG, URIC, LIPD, PHOS, CMP, DBIL #### [facility] [address], [place] [id number] Erythrocyte distribution width (RBC) [Ratio] 14.7 % Normal 11.0-15.0 [facility] Specialist Comment on above: Performed By: #### C BCAD, MG, URIC, LIPD, PHOS, CMP, DBIL #### [facility] [address], [place] [id number] Hematocrit (Bld) [Volume fraction] 50.8 % High 38.5-50.0 [facility] Specialist Comment on above: Performed By: #### C BCAD, MG, URIC, LIPD, PHOS, CMP, DBIL #### [facility] [address], [place] [id number] Hemoglobin (Bld) [Mass/Vol] 16.5 g/dL Normal 13.0-17.1 [facility] Specialist Comment on above: Performed By: #### C BCAD, MG, URIC, LIPD, PHOS, CMP, DBIL #### [facility] [address], [place] [id number] Lymphocytes (Bld) [#/Vol] 1.1 10*3/uL Normal 0.9-3.9 [place] [facility] Operator Comment on above: Performed By: #### C BCAD, MG, URIC, LIPD, PHOS, CMP, DBIL #### [facility] [facility] [address], [place] [id number] Lymphocytes/100 WBC (Bld) 16.1 % Normal [facility] Comment on above: Performed By: #### C BCAD, MG, URIC, LIPD, PHOS, CMP, DBIL #### [facility] [address], [place] [id number] MCH (RBC) [Entitic mass] 29.8 pg Normal 27.0-33.0 [facility] Comment on above: Performed By: #### C BCAD, MG, URIC, LIPD, PHOS, CMP, DBIL #### [facility] [address], [place] [id number] MCHC (RBC) [Mass/Vol] 32.5 g/dL Normal 32.0-36.0 [facility] Comment on above: Performed By: #### C BCAD, MG, URIC, LIPD, PHOS, CMP, DBIL #### [facility] [address], [place] [id number] MCV (RBC) [Entitic vol] 92 fL Normal 80-100 [facility] Comment on above: Performed By: #### C BCAD, MG, URIC, LIPD, PHOS, CMP, DBIL #### [facility] [address], [place] [id number] Monocytes (Bld) [#/Vol] 0.8 10*3/uL Normal 0.2-0.9 [facility] Comment on above: Performed By: #### C BCAD, MG, URIC, LIPD, PHOS, CMP, DBIL #### [facility] [address], [place] [id number] Monocytes/100 WBC (Bld) 11.4 % Normal [facility] Comment on above: Performed By: #### C BCAD, MG, URIC, LIPD, PHOS, CMP, DBIL #### [facility] [address], [place] [id number] Neutrophils (Bld) [#/Vol] 4.6 10*3/uL Normal 1.5-7.8 [facility] Comment on above: Performed By: #### C BCAD, MG, URIC, LIPD, PHOS, CMP, DBIL #### [facility] [address], [place] [id number] Neutrophils/100 WBC (Bld) 69.2 % Normal [facility] Comment on above: Performed By: #### C BCAD, MG, URIC, LIPD, PHOS, CMP, DBIL #### [facility] [address], [place] [id number] Platelet mean volume (Bld) [Entitic vol] 10.60 fL Normal 7.50-12.50 [facility] Comment on above: Performed By: #### C BCAD, MG, URIC, LIPD, PHOS, CMP, DBIL #### [facility] [address], [place] [id number] Platelets (Bld) [#/Vol] 285 10*3/uL Normal 140-400 [facility] Comment on above: Performed By: #### C BCAD, MG, URIC, LIPD, PHOS, CMP, DBIL #### [facility] [address], [place] [id number] RBC (Bld) [#/Vol] 5.53 10*6/uL Normal 4.20-5.80 [facility] Comment on above: Performed By: #### C BCAD, MG, URIC, LIPD, PHOS, CMP, DBIL #### [facility] [address], [place] [id number] RDW-SD 49.8 fL Normal 37.0-50.0 [facility] Comment on above: Performed By: #### C BCAD, MG, URIC, LIPD, PHOS, CMP, DBIL #### [facility] [address], [place] [id number] WBC (Bld) [#/Vol] 6.6 10*3/uL Normal 3.8-11.0 [facility] Comment on above: Performed By: #### C BCAD, MG, URIC, LIPD, PHOS, CMP, DBIL #### [facility] [address], [place] [id number] Comprehensive Metabolic Pane nitin 06-01-2021 Albumin [Mass/Vol] 5.0 g/dL Normal 3.6-5.1 [facility] Comment on above: Performed By: #### C BCAD, MG, URIC, LIPD, PHOS, CMP, DBIL #### [facility] [address], [place] [id number] Albumin/Globulin [Mass ratio] 2.6 {ratio} High 1.0-2.5 [facility] Comment on above: Performed By: #### C BCAD, MG, URIC, LIPD, PHOS, CMP, DBIL #### [facility] [address], [place] [id number] ALP [Catalytic activity/Vol] 93 U/L Normal 40-129 [facility] Comment on above: Performed By: #### C BCAD, MG, URIC, LIPD, PHOS, CMP, DBIL #### [facility] [address], [place] [id number] ALT [Catalytic activity/Vol] 30 U/L Normal 9-46 [facility] Comment on above: Result Comment: 03/17 Female reference range changed. Performed By: #### C BCAD, MG, URIC, LIPD, PHOS, CMP, DBIL #### [facility] [address], [place] [id number] Anion gap [Moles/Vol] 21 mmol/L High 12-20 [facility] Comment on above: Result Comment: Effe ctive 04/22/2019 reference range changed. Performed By: #### C BCAD, MG, URIC, LIPD, PHOS, CMP, DBIL #### [facility] [address], [place] [id number] AST [Catalytic activity/Vol] 26 U/L Normal 10-40 [facility] Comment on above: Performed By: #### C BCAD, MG, URIC, LIPD, PHOS, CMP, DBIL #### [facility] [address], [place] [id number] Bilirubin [Mass/Vol] 0.72 mg/dL Normal 0.30-1.20 [facility] Comment on above: Performed By: #### C BCAD, MG, URIC, LIPD, PHOS, CMP, DBIL #### [facility] [address], [place] [id number] BUN/CREA 15 Ratio Normal 6-22 [facility] Comment on above: Performed By: #### C BCAD, MG, URIC, LIPD, PHOS, CMP, DBIL #### [facility] [address], [place] [id number] Calcium [Mass/Vol] 10.4 mg/dL High 8.6-10.2 [facility] Comment on above: Performed By: #### C BCAD, MG, URIC, LIPD, PHOS, CMP, DBIL #### [facility] [address], [place] [id number] Chloride [Moles/Vol] 104 mmol/L Normal 98-107 [facility] Comment on above: Performed By: #### C BCAD, MG, URIC, LIPD, PHOS, CMP, DBIL #### [facility] [address], [place] [id number] CO2 [Moles/Vol] 24 mmol/L Normal 20-31 [facility] Comment on above: Performed By: #### C BCAD, MG, URIC, LIPD, PHOS, CMP, DBIL #### [facility] [address], [place] [id number] Creatinine [Mass/Vol] 1.2 mg/dL Normal 0.7-1.4 [facility] Comment on above: Performed By: #### C BCAD, MG, URIC, LIPD, PHOS, CMP, DBIL #### [facility] [address], [place] [id number] eGFRAA 79 mL/min/1.73m2 Normal >60 [facility] Comment on above: Performed By: #### C BCAD, MG, URIC, LIPD, PHOS, CMP, DBIL #### [facility] [address], [place] [id number] eGFRNAA 65 mL/min/1.73m2 Normal >60 [place] [facility] Comment on above: Performed By: #### C BCAD, MG, URIC, LIPD, PHOS, CMP, DBIL #### [facility] [address], [place] [id number] Globulin (S) [Mass/Vol] 1.9 g/dL Normal 1.9-3.7 [facility] Comment on above: Performed By: #### C BCAD, MG, URIC, LIPD, PHOS, CMP, DBIL #### [facility] [address], [place] [id number] Glucose [Mass/Vol] 108 mg/dL High 65-99 [facility] [place] [facility] Comment on above: Result Comment: For FASTING Glucose --- ADA reference ranges: Normal 65-99 mg/dl Prediabetes 100-125 Diabetes >/= 126 Performed By: #### C BCAD, MG, URIC, LIPD, PHOS, CMP, DBIL #### [facility] [address], [place] [id number] Potassium [Moles/Vol] 5.0 mmol/L Normal 3.5-5.5 [facility] Comment on above: Performed By: #### C BCAD, MG, URIC, LIPD, PHOS, CMP, DBIL #### [facility] [address], [place] [id number] Protein [Mass/Vol] 6.9 g/dL Normal 6.1-8.1 [facility] [place] [facility] Comment on above: Performed By: #### C BCAD, MG, URIC, LIPD, PHOS, CMP, DBIL #### [facility] [address], [place] [id number] Sodium [Moles/Vol] 143 mmol/L Normal 135-146 [facility] [place] [facility] Comment on above: Performed By: #### C BCAD, MG, URIC, LIPD, PHOS, CMP, DBIL #### [facility] [address], [place] [id number] Urea nitrogen [Mass/Vol] 17 mg/dL Normal 7-25 [facility] Comment on above: Performed By: #### C BCAD, MG, URIC, LIPD, PHOS, CMP, DBIL #### [facility] [address], [place] [id number] Hemoglobin A1Con 06-01-2021 EAG 139.85 Normal [facility] Comment on above: Performed By: #### A 1C #### [facility] [address], [place] [id number] HbA1c (Bld) [Mass fraction] 6.5 % High 4.0-6.0 [facility] Comment on above: Performed By: #### A 1C #### [facility] [address], [place] [id number] Lipid Panelon 06-01-2021 Cholesterol [Mass/Vol] 129 mg/dL Normal 125-200 [facility] Comment on above: Result Comment: Low risk < 200mg/dL Borderline risk 201-239 mg/dl High risk > or equal to 240 Performed By: #### C BCAD, MG, URIC, LIPD, PHOS, CMP, DBIL #### [facility] [address], [place] [id number] Cholesterol in HDL [Mass/Vol] 44 mg/dL Normal >40 [facility] Comment on above: Result Comment: High Cardiovascular Risk HDL <40 mg/dL Low Cardiovascular Risk HDL > or equal to 60 mg/dl Performed By: #### C BCAD, MG, URIC, LIPD, PHOS, CMP, DBIL #### [facility] [address], [place] [id number] Cholesterol in LDL [Mass/Vol] 61 mg/dL Normal [facility] Comment on above: Result Comment: LDL ATP III CLASSIFICATION LDL less than 100 mg/dl Optimal LDL 100-129 mg/dl Near or above optimal LDL 130-159 Borderline high LDL 160-189 High LDL greater than 189 mg/dl Very High Performed By: #### C BCAD, MG, URIC, LIPD, PHOS, CMP, DBIL #### [facility] [address], [place] [id number] Cholesterol in VLDL [Mass/Vol] 24 mg/dL Normal [facility] Comment on above: Performed By: #### C BCAD, MG, URIC, LIPD, PHOS, CMP, DBIL #### [facility] [address], [place] [id number] Cholesterol.total/C holesterol in HDL [Mass ratio] 3 {ratio} Normal [facility] Comment on above: Performed By: #### C BCAD, MG, URIC, LIPD, PHOS, CMP, DBIL #### [facility] [address], [place] [id number] Triglyceride [Mass/Vol] 119 mg/dL Normal 30-150 [facility] Comment on above: Result Comment: TRIG ATPIII CLASSIFICATIONS TRIG less than 150 mg/dl Normal TRIG 150-199 mg/dl Borderline High TRIG 200-500 mg/dl High TRIG greather than 500 mg/dl Very High Performed By: #### C BCAD, MG, URIC, LIPD, PHOS, CMP, DBIL #### [facility] [address], [place] [id number] Magnesiumon 06-01-2021 Magnesium [Mass/Vol] 1.8 mg/dL Normal 1.5-2.3 [facility] Comment on above: Performed By: #### C BCAD, MG, URIC, LIPD, PHOS, CMP, DBIL #### [facility] [address], [place] [id number] Phosphoruson 06-01-2021 Phosphate [Mass/Vol] 4.3 mg/dL Normal 2.2-4.4 [facility] Comment on above: Performed By: #### C BCAD, MG, URIC, LIPD, PHOS, CMP, DBIL #### [facility] [address], [place] [id number] Uric Acidon 06-01-2021 URIC 6.1 mg/dL Normal 4.0-8.0 [facility] Comment on above: Result Comment: Refe rence range change 03/03/2017. Prior reference range F 2.4-5.7mg/dL. M 3.4-7.0 mg/dL. Performed By: #### C BCAD, MG, URIC, LIPD, PHOS, CMP, DBIL #### [facility] [address], [place] [id number] Bilirubin, Directon 04-30-19 22 DBIL <0.2 Normal [facility] Comment on above: Result Comment: Refe rence range change 03/03/2017. Prior reference range 0.1-0.3 mg/dL. Performed By: #### C BCAD, MG, URIC, LIPD, PHOS, CMP, DBIL #### [facility] [address], [place] [id number] Complete Blood Count with Au to Diffon 04-30-2021 Basophils (Bld) [#/Vol] 0.07 10*3/uL Normal 0.00-0.20 [facility] Comment on above: Performed By: #### C BCAD, MG, URIC, LIPD, PHOS, CMP, DBIL #### [facility] [address], [place] [id number] Basophils/100 WBC (Bld) 1.1 % Normal [facility] Comment on above: Performed By: #### C BCAD, MG, URIC, LIPD, PHOS, CMP, DBIL #### [facility] [address], [place] [id number] Eosinophils (Bld) [#/Vol] 0.12 10*3/uL Normal 0.02-0.50 [facility] Comment on above: Performed By: #### C BCAD, MG, URIC, LIPD, PHOS, CMP, DBIL #### [facility] [address], [place] [id number] Eosinophils/100 WBC (Bld) 1.8 % Normal [facility] Comment on above: Performed By: #### C BCAD, MG, URIC, LIPD, PHOS, CMP, DBIL #### [facility] [address], [place] [id number] Erythrocyte distribution width (RBC) [Ratio] 14.7 % Normal 11.0-15.0 [facility] Comment on above: Performed By: #### C BCAD, MG, URIC, LIPD, PHOS, CMP, DBIL #### [facility] [address], [place] [id number] Hematocrit (Bld) [Volume fraction] 50.5 % High 38.5-50.0 [facility] Comment on above: Performed By: #### C BCAD, MG, URIC, LIPD, PHOS, CMP, DBIL #### [facility] [address], [place] [id number] Hemoglobin (Bld) [Mass/Vol] 16.4 g/dL Normal 13.0-17.1 [facility] Comment on above: Performed By: #### C BCAD, MG, URIC, LIPD, PHOS, CMP, DBIL #### [facility] [address], [place] [id number] Lymphocytes (Bld) [#/Vol] 1.0 10*3/uL Normal 0.9-3.9 [facility] Comment on above: Performed By: #### C BCAD, MG, URIC, LIPD, PHOS, CMP, DBIL #### [facility] [address], [place] [id number] Lymphocytes/100 WBC (Bld) 14.7 % Normal [facility] Comment on above: Performed By: #### C BCAD, MG, URIC, LIPD, PHOS, CMP, DBIL #### [facility] [address], [place] [id number] MCH (RBC) [Entitic mass] 29.4 pg Normal 27.0-33.0 [facility] Comment on above: Performed By: #### C BCAD, MG, URIC, LIPD, PHOS, CMP, DBIL #### [facility] [address], [place] [id number] MCHC (RBC) [Mass/Vol] 32.5 g/dL Normal 32.0-36.0 [facility] Comment on above: Performed By: #### C BCAD, MG, URIC, LIPD, PHOS, CMP, DBIL #### [facility] [address], [place] [id number] MCV (RBC) [Entitic vol] 91 fL Normal 80-100 [facility] Comment on above: Performed By: #### C BCAD, MG, URIC, LIPD, PHOS, CMP, DBIL #### [facility] [address], [place] [id number] Monocytes (Bld) [#/Vol] 0.7 10*3/uL Normal 0.2-0.9 [place] [facility] Comment on above: Performed By: #### C BCAD, MG, URIC, LIPD, PHOS, CMP, DBIL #### [facility] [address], [place] [id number] Monocytes/100 WBC (Bld) 10.4 % Normal [facility] Comment on above: Performed By: #### C BCAD, MG, URIC, LIPD, PHOS, CMP, DBIL #### [facility] [address], [place] [id number] Neutrophils (Bld) [#/Vol] 4.7 10*3/uL Normal 1.5-7.8 [facility] Comment on above: Performed By: #### C BCAD, MG, URIC, LIPD, PHOS, CMP, DBIL #### [facility] [address], [place] [id number] Neutrophils/100 WBC (Bld) 71.4 % Normal [facility] Comment on above: Performed By: #### C BCAD, MG, URIC, LIPD, PHOS, CMP, DBIL #### [facility] [address], [place] [id number] Platelet mean volume (Bld) [Entitic vol] 10.70 fL Normal 7.50-12.50 [facility] Comment on above: Performed By: #### C BCAD, MG, URIC, LIPD, PHOS, CMP, DBIL #### [facility] [address], [place] [id number] Platelets (Bld) [#/Vol] 261 10*3/uL Normal 140-400 [facility] Comment on above: Performed By: #### C BCAD, MG, URIC, LIPD, PHOS, CMP, DBIL #### [facility] [address], [place] [id number] RBC (Bld) [#/Vol] 5.57 10*6/uL Normal 4.20-5.80 [facility] Comment on above: Performed By: #### C BCAD, MG, URIC, LIPD, PHOS, CMP, DBIL #### [facility] [address], [place] [id number] RDW-SD 49.2 fL Normal 37.0-50.0 [facility] Comment on above: Performed By: #### C BCAD, MG, URIC, LIPD, PHOS, CMP, DBIL #### [facility] [address], [place] [id number] WBC (Bld) [#/Vol] 6.6 10*3/uL Normal 3.8-11.0 [facility] [place] [facility] Comment on above: Performed By: #### C BCAD, MG, URIC, LIPD, PHOS, CMP, DBIL #### [facility] [address], [place] [id number] Comprehensive Metabolic Pane nitin 04-30-2021 Albumin [Mass/Vol] 4.9 g/dL Normal 3.6-5.1 [facility] [place] [facility] Comment on above: Performed By: #### C BCAD, MG, URIC, LIPD, PHOS, CMP, DBIL #### [facility] [address], [place] [id number] Albumin/Globulin [Mass ratio] 2.6 {ratio} High 1.0-2.5 [facility] Comment on above: Performed By: #### C BCAD, MG, URIC, LIPD, PHOS, CMP, DBIL #### [facility] [address], [place] [id number] ALP [Catalytic activity/Vol] 89 U/L Normal 40-129 [facility] Comment on above: Performed By: #### C BCAD, MG, URIC, LIPD, PHOS, CMP, DBIL #### [facility] [address], [place] [id number] ALT [Catalytic activity/Vol] 30 U/L Normal 9-46 [facility] Comment on above: Result Comment: 03/17 Female reference range changed. Performed By: #### C BCAD, MG, URIC, LIPD, PHOS, CMP, DBIL #### [facility] [address], [place] [id number] Anion gap [Moles/Vol] 20 mmol/L Normal 12-20 [facility] Comment on above: Result Comment: Effe ctive 04/22/2019 reference range changed. Performed By: #### C BCAD, MG, URIC, LIPD, PHOS, CMP, DBIL #### [facility] [address], [place] [id number] AST [Catalytic activity/Vol] 23 U/L Normal 10-40 [facility] Comment on above: Performed By: #### C BCAD, MG, URIC, LIPD, PHOS, CMP, DBIL #### [facility] [address], [place] [id number] Bilirubin [Mass/Vol] 0.52 mg/dL Normal 0.30-1.20 [facility] Comment on above: Performed By: #### C BCAD, MG, URIC, LIPD, PHOS, CMP, DBIL #### [facility] [address], [place] [id number] BUN/CREA 18 Ratio Normal 6-22 [facility] Comment on above: Performed By: #### C BCAD, MG, URIC, LIPD, PHOS, CMP, DBIL #### [facility] [address], [place] [id number] Calcium [Mass/Vol] 10.1 mg/dL Normal 8.6-10.2 [facility] Comment on above: Performed By: #### C BCAD, MG, URIC, LIPD, PHOS, CMP, DBIL #### [facility] [address], [place] [id number] Chloride [Moles/Vol] 102 mmol/L Normal 98-107 [facility] Comment on above: Performed By: #### C BCAD, MG, URIC, LIPD, PHOS, CMP, DBIL #### [facility] [address], [place] [id number] CO2 [Moles/Vol] 23 mmol/L Normal 20-31 [facility] Comment on above: Performed By: #### C BCAD, MG, URIC, LIPD, PHOS, CMP, DBIL #### [facility] [address], [place] [id number] Creatinine [Mass/Vol] 1.3 mg/dL Normal 0.7-1.4 [facility] [place] [facility] Comment on above: Performed By: #### C BCAD, MG, URIC, LIPD, PHOS, CMP, DBIL #### [facility] [address], [place] [id number] eGFRAA 71 mL/min/1.73m2 Normal >60 [facility] Comment on above: Performed By: #### C BCAD, MG, URIC, LIPD, PHOS, CMP, DBIL #### [facility] [address], [place] [id number] eGFRNAA 59 mL/min/1.73m2 Low >60 [facility] Comment on above: Performed By: #### C BCAD, MG, URIC, LIPD, PHOS, CMP, DBIL #### [facility] [address], [place] [id number] Globulin (S) [Mass/Vol] 1.9 g/dL Normal 1.9-3.7 [facility] Comment on above: Performed By: #### C BCAD, MG, URIC, LIPD, PHOS, CMP, DBIL #### [facility] [address], [place] [id number] Glucose [Mass/Vol] 128 mg/dL High 65-99 [facility] [place] [facility] Comment on above: Result Comment: For FASTING Glucose --- ADA reference ranges: Normal 65-99 mg/dl Prediabetes 100-125 Diabetes >/= 126 Performed By: #### C BCAD, MG, URIC, LIPD, PHOS, CMP, DBIL #### [facility] [address], [place] [id number] Potassium [Moles/Vol] 4.4 mmol/L Normal 3.5-5.5 [facility] Comment on above: Performed By: #### C BCAD, MG, URIC, LIPD, PHOS, CMP, DBIL #### [facility] [address], [place] [id number] Protein [Mass/Vol] 6.8 g/dL Normal 6.1-8.1 [facility] [place] [facility] Comment on above: Performed By: #### C BCAD, MG, URIC, LIPD, PHOS, CMP, DBIL #### [facility] [address], [place] [id number] Sodium [Moles/Vol] 140 mmol/L Normal 135-146 [facility] Comment on above: Performed By: #### C BCAD, MG, URIC, LIPD, PHOS, CMP, DBIL #### [facility] [address], [place] [id number] Urea nitrogen [Mass/Vol] 23 mg/dL Normal 7-25 [facility] Comment on above: Performed By: #### C BCAD, MG, URIC, LIPD, PHOS, CMP, DBIL #### [facility] [address], [place] [id number] Lipid Panelon 04-30-2021 Cholesterol [Mass/Vol] 123 mg/dL Low 125-200 [facility] Comment on above: Result Comment: Low risk < 200mg/dL Borderline risk 201-239 mg/dl High risk > or equal to 240 Performed By: #### C BCAD, MG, URIC, LIPD, PHOS, CMP, DBIL #### [facility] [address], [place] [id number] Cholesterol in HDL [Mass/Vol] 41 mg/dL Normal >40 [facility] Comment on above: Result Comment: High Cardiovascular Risk HDL <40 mg/dL Low Cardiovascular Risk HDL > or equal to 60 mg/dl Performed By: #### C BCAD, MG, URIC, LIPD, PHOS, CMP, DBIL #### [facility] [address], [place] [id number] Cholesterol in LDL [Mass/Vol] 51 mg/dL Normal [facility] Comment on above: Result Comment: LDL ATP III CLASSIFICATION LDL less than 100 mg/dl Optimal LDL 100-129 mg/dl Near or above optimal LDL 130-159 Borderline high LDL 160-189 High LDL greater than 189 mg/dl Very High Performed By: #### C BCAD, MG, URIC, LIPD, PHOS, CMP, DBIL #### [facility] [address], [place] [id number] Cholesterol in VLDL [Mass/Vol] 31 mg/dL Normal [facility] Comment on above: Performed By: #### C BCAD, MG, URIC, LIPD, PHOS, CMP, DBIL #### [facility] [address], [place] [id number] Cholesterol.total/C holesterol in HDL [Mass ratio] 3 {ratio} Normal [facility] Comment on above: Performed By: #### C BCAD, MG, URIC, LIPD, PHOS, CMP, DBIL #### [facility] [address], [place] [id number] Triglyceride [Mass/Vol] 156 mg/dL High 30-150 [facility] Comment on above: Result Comment: TRIG ATPIII CLASSIFICATIONS TRIG less than 150 mg/dl Normal TRIG 150-199 mg/dl Borderline High TRIG 200-500 mg/dl High TRIG greather than 500 mg/dl Very High Performed By: #### C BCAD, MG, URIC, LIPD, PHOS, CMP, DBIL #### [facility] [address], [place] [id number] Magnesiumon 04-30-2021 Magnesium [Mass/Vol] 2.0 mg/dL Normal 1.5-2.3 [facility] Comment on above: Performed By: #### C BCAD, MG, URIC, LIPD, PHOS, CMP, DBIL #### [facility] [address], [place] [id number] Phosphoruson 04-30-2021 Phosphate [Mass/Vol] 4.2 mg/dL Normal 2.2-4.4 [facility] Comment on above: Performed By: #### C BCAD, MG, URIC, LIPD, PHOS, CMP, DBIL #### [facility] [address], [place] [id number] Uric Acidon 04-30-2021 URIC 5.3 mg/dL Normal 4.0-8.0 [facility] Comment on above: Result Comment: Refe rence range change 03/03/2017. Prior reference range F 2.4-5.7mg/dL. M 3.4-7.0 mg/dL. Performed By: #### C BCAD, MG, URIC, LIPD, PHOS, CMP, DBIL #### [facility] [address], [place] [id number] Office Visit (Cardiology)on 04-23-2021 Follow-up visit Diagnoses/Problems Assessed Cardiac arrest with ventricular fibrillation (427.5,427.41) (I46.9,I49.01) Coronary artery disease involving [place] coronary artery of [place] heart without angina pectoris (414.01) (I25.10) ICD [...] seen for follow-up of a hospitalization for [facility] D/C 12/11/2020 ICD insert. History of Present [...] he saw his regular Gunn by his draw bench operator helper to agreed with and endorsed the care we rendered. The device was interrogated it in their office and it appears to be functioning appropriately. Because of all the above he is pleased with his care. He'll be following up henceforth with the Gunn draw bench operator helper and we advised him were always happy [...] transplantation History of Pacemaker insertion History of [place] tooth extraction Current Meds Medication NameInstruction Aspirin [...] Vital Signs Recorded: 23Apr2021 05:40PMRecorded: 23Apr2021 03:22PM Luqwbujg422, RUE, Vvmyvuo337, RUE, Sitting Wlpmioatm08, RUE, Dtwmseo82, RUE, Sitting Heart Rate61, R Brachial Artery Height5 ft 11 in Ocdsgh647 lb BMI Swbiuczzux52.57 kg/m2 BSA Calculated2.16 Tobacco Useb) No Fall [...] abdomen non-tender (more content not included)... Normal [facility] Tobacco Screening.on 022 Fall risk assessment c) Not medically indicated [facility] y 250 DO Work Phone: Tobacco use status [facility] b) No [facility] y 250 DO Work Phone: Bilirubin, Directon 03-29-20 21 DBIL <0.2 Normal [facility] Comment on above: Result Comment: Refe rence range change 03/03/2017. Prior reference range 0.1-0.3 mg/dL. Performed By: #### C BCAD, MG, URIC, LIPD, PHOS, CMP, DBIL #### [facility] [address], [place] [id number] Complete Blood Count with Au to Diffon 03-29-2021 Basophils (Bld) [#/Vol] 0.06 10*3/uL Normal 0.00-0.20 [facility] [employer] Comment on above: Performed By: #### C BCAD, MG, URIC, LIPD, PHOS, CMP, DBIL #### [facility] [address], [place] [id number] Basophils/100 WBC (Bld) 0.7 % Normal [facility] [employer] Comment on above: Performed By: #### C BCAD, MG, URIC, LIPD, PHOS, CMP, DBIL #### [facility] [address], [place] [id number] Eosinophils (Bld) [#/Vol] 0.13 10*3/uL Normal 0.02-0.50 [facility] Folder Gluer Operator Comment on above: Performed By: #### C BCAD, MG, URIC, LIPD, PHOS, CMP, DBIL #### [facility] [address], [place] [id number] Eosinophils/100 WBC (Bld) 1.6 % Normal [facility] Specialist Comment on above: Performed By: #### C BCAD, MG, URIC, LIPD, PHOS, CMP, DBIL #### [facility] [address], [place] [id number] Erythrocyte distribution width (RBC) [Ratio] 14.9 % Normal 11.0-15.0 [facility] Specialist Comment on above: Performed By: #### C BCAD, MG, URIC, LIPD, PHOS, CMP, DBIL #### [facility] [address], [place] [id number] Hematocrit (Bld) [Volume fraction] 51.2 % High 38.5-50.0 [facility] Specialist Comment on above: Performed By: #### C BCAD, MG, URIC, LIPD, PHOS, CMP, DBIL #### [facility] [address], [place] [id number] Hemoglobin (Bld) [Mass/Vol] 16.0 g/dL Normal 13.0-17.1 [facility] Folder Gluer Operator Comment on above: Performed By: #### C BCAD, MG, URIC, LIPD, PHOS, CMP, DBIL #### [facility] [address], [place] [id number] Lymphocytes (Bld) [#/Vol] 0.9 10*3/uL Normal 0.9-3.9 [facility] Specialist Comment on above: Performed By: #### C BCAD, MG, URIC, LIPD, PHOS, CMP, DBIL #### [facility] [address], [place] [id number] Lymphocytes/100 WBC (Bld) 10.7 % Normal [facility] Specialist Comment on above: Performed By: #### C BCAD, MG, URIC, LIPD, PHOS, CMP, DBIL #### [facility] [address], [place] [id number] MCH (RBC) [Entitic mass] 28.9 pg Normal 27.0-33.0 [facility] Specialist Comment on above: Performed By: #### C BCAD, MG, URIC, LIPD, PHOS, CMP, DBIL #### [facility] [address], [place] [id number] MCHC (RBC) [Mass/Vol] 31.3 g/dL Low 32.0-36.0 [facility] Folder Gluer Operator Comment on above: Performed By: #### C BCAD, MG, URIC, LIPD, PHOS, CMP, DBIL #### [facility] [address], [place] [id number] MCV (RBC) [Entitic vol] 92 fL Normal 80-100 [facility] Folder Gluer Operator Comment on above: Performed By: #### C BCAD, MG, URIC, LIPD, PHOS, CMP, DBIL #### [facility] [address], [place] [id number] Monocytes (Bld) [#/Vol] 0.7 10*3/uL Normal 0.2-0.9 [facility] Folder Gl[employer] Operator Comment on above: Performed By: #### C BCAD, MG, URIC, LIPD, PHOS, CMP, DBIL #### [facility] [address], [place] [id number] Monocytes/100 WBC (Bld) 8.1 % Normal [facility] Folder Gluer Operator Comment on above: Performed By: #### C BCAD, MG, URIC, LIPD, PHOS, CMP, DBIL #### [facility] [address], [place] [id number] Neutrophils (Bld) [#/Vol] 6.4 10*3/uL Normal 1.5-7.8 [facility] Folder Gl[employer] Operator Comment on above: Performed By: #### C BCAD, MG, URIC, LIPD, PHOS, CMP, DBIL #### [facility] [address], [place] [id number] Neutrophils/100 WBC (Bld) 78.5 % Normal [facility] Folder Gluer Operator Comment on above: Performed By: #### C BCAD, MG, URIC, LIPD, PHOS, CMP, DBIL #### [facility] [address], [place] [id number] Platelet mean volume (Bld) [Entitic vol] 11.20 fL Normal 7.50-12.50 [facility] Folder Gluer Operator Comment on above: Performed By: #### C BCAD, MG, URIC, LIPD, PHOS, CMP, DBIL #### [facility] [address], [place] [id number] Platelets (Bld) [#/Vol] 295 10*3/uL Normal 140-400 [facility] Folder Gluer Operator Comment on above: Performed By: #### C BCAD, MG, URIC, LIPD, PHOS, CMP, DBIL #### [facility] [address], [place] [id number] RBC (Bld) [#/Vol] 5.54 10*6/uL Normal 4.20-5.80 [facility] Folder Gluer Operator Comment on above: Performed By: #### C BCAD, MG, URIC, LIPD, PHOS, CMP, DBIL #### [facility] [address], [place] [id number] RDW-SD 51.0 fL High 37.0-50.0 [facility] Folder Gluer Operator Comment on above: Performed By: #### C BCAD, MG, URIC, LIPD, PHOS, CMP, DBIL #### [facility] [address], [place] [id number] WBC (Bld) [#/Vol] 8.2 10*3/uL Normal 3.8-11.0 [facility] Folder Gluer Operator Comment on above: Performed By: #### C BCAD, MG, URIC, LIPD, PHOS, CMP, DBIL #### [facility] [address], [place] [id number] Comprehensive Metabolic [facility] 03-29-2021 Albumin [Mass/Vol] 4.9 g/dL Normal 3.6-5.1 [place] F[employer] Gl[employer] Operator Comment on above: Performed By: #### C BCAD, MG, URIC, LIPD, PHOS, CMP, DBIL #### [facility] [address], [place] [id number] Albumin/Globulin [Mass ratio] 2.5 {ratio} Normal 1.0-2.5 [facility] Folder Gl[employer] Operator Comment on above: Performed By: #### C BCAD, MG, URIC, LIPD, PHOS, CMP, DBIL #### [facility] [address], [place] [id number] ALP [Catalytic activity/Vol] 86 U/L Normal 40-129 [facility] Specialist Comment on above: Performed By: #### C BCAD, MG, URIC, LIPD, PHOS, CMP, DBIL #### [facility] [address], [place] [id number] ALT [Catalytic activity/Vol] 33 U/L Normal 9-46 [facility] Specialist Comment on above: Result Comment: 03/17 Female reference range changed. Performed By: #### C BCAD, MG, URIC, LIPD, PHOS, CMP, DBIL #### [facility] [address], [place] [id number] Anion gap [Moles/Vol] 18 mmol/L Normal 12-20 [facility] Specialist Comment on above: Result Comment: Effe ctive 04/22/2019 reference range changed. Performed By: #### C BCAD, MG, URIC, LIPD, PHOS, CMP, DBIL #### [facility] [address], [place] [id number] AST [Catalytic activity/Vol] 27 U/L Normal 10-40 [facility] Specialist Comment on above: Performed By: #### C BCAD, MG, URIC, LIPD, PHOS, CMP, DBIL #### [facility] [address], [place] [id number] Bilirubin [Mass/Vol] 0.38 mg/dL Normal 0.30-1.20 [facility] Comment on above: Performed By: #### C BCAD, MG, URIC, LIPD, PHOS, CMP, DBIL #### [facility] [address], [place] [id number] BUN/CREA 12 Ratio Normal 6-22 [facility] Comment on above: Performed By: #### C BCAD, MG, URIC, LIPD, PHOS, CMP, DBIL #### [facility] [address], [place] [id number] Calcium [Mass/Vol] 10.3 mg/dL High 8.6-10.2 [facility] Comment on above: Performed By: #### C BCAD, MG, URIC, LIPD, PHOS, CMP, DBIL #### [facility] [address], [place] [id number] Chloride [Moles/Vol] 105 mmol/L Normal 98-107 [facility] Specialist Comment on above: Performed By: #### C BCAD, MG, URIC, LIPD, PHOS, CMP, DBIL #### [facility] [address], [place] [id number] CO2 [Moles/Vol] 23 mmol/L Normal 20-31 [facility] Specialist Comment on above: Performed By: #### C BCAD, MG, URIC, LIPD, PHOS, CMP, DBIL #### [facility] [address], [place] [id number] Creatinine [Mass/Vol] 1.2 mg/dL Normal 0.7-1.4 [facility] Specialist Comment on above: Performed By: #### C BCAD, MG, URIC, LIPD, PHOS, CMP, DBIL #### [facility] [address], [place] [id number] eGFRAA 79 mL/min/1.73m2 Normal >60 [facility] Specialist Comment on above: Performed By: #### C BCAD, MG, URIC, LIPD, PHOS, CMP, DBIL #### [facility] [address], [place] [id number] eGFRNAA 65 mL/min/1.73m2 Normal >60 [facility] Specialist Comment on above: Performed By: #### C BCAD, MG, URIC, LIPD, PHOS, CMP, DBIL #### [facility] [address], [place] [id number] Globulin (S) [Mass/Vol] 2.0 g/dL Normal 1.9-3.7 [facility] Specialist Comment on above: Performed By: #### C BCAD, MG, URIC, LIPD, PHOS, CMP, DBIL #### [facility] [address], [place] [id number] Glucose [Mass/Vol] 125 mg/dL High 65-99 [facility] Comment on above: Result Comment: For FASTING Glucose --- ADA reference ranges: Normal 65-99 mg/dl Prediabetes 100-125 Diabetes >/= 126 Performed By: #### C BCAD, MG, URIC, LIPD, PHOS, CMP, DBIL #### [facility] [address], [place] [id number] Potassium [Moles/Vol] 4.7 mmol/L Normal 3.5-5.5 [facility] Folder Gl[employer] Operator Comment on above: Performed By: #### C BCAD, MG, URIC, LIPD, PHOS, CMP, DBIL #### [facility] [address], [place] [id number] Protein [Mass/Vol] 6.9 g/dL Normal 6.1-8.1 [place] black[place] Folder Gluer Operator Comment on above: Performed By: #### C BCAD, MG, URIC, LIPD, PHOS, CMP, DBIL #### [facility] [address], [place] [id number] Sodium [Moles/Vol] 141 mmol/L Normal 135-146 [facility] Folder Gluer Operator Comment on above: Performed By: #### C BCAD, MG, URIC, LIPD, PHOS, CMP, DBIL #### [facility] [address], [place] [id number] Urea nitrogen [Mass/Vol] 14 mg/dL Normal 7-25 [facility] Folder Gluer Operator Comment on above: Performed By: #### C BCAD, MG, URIC, LIPD, PHOS, CMP, DBIL #### [facility] [address], [place] [id number] Lipid Panelon 03-29-2021 Cholesterol [Mass/Vol] 123 mg/dL Low 125-200 [facility] Folder Gluer Operator Comment on above: Result Comment: Low risk < 200mg/dL Borderline risk 201-239 mg/dl High risk > or equal to 240 Performed By: #### C BCAD, MG, URIC, LIPD, PHOS, CMP, DBIL #### [facility] [address], [place] [id number] Cholesterol in HDL [Mass/Vol] 42 mg/dL Normal >40 [facility] Folder Gluer Operator Comment on above: Result Comment: High Cardiovascular Risk HDL <40 mg/dL Low Cardiovascular Risk HDL > or equal to 60 mg/dl Performed By: #### C BCAD, MG, URIC, LIPD, PHOS, CMP, DBIL #### [facility] [address] [facility] [place] [id number] Cholesterol in LDL [Mass/Vol] 58 mg/dL Normal [facility] Specialist Comment on above: Result Comment: LDL ATP III CLASSIFICATION LDL less than 100 mg/dl Optimal LDL 100-129 mg/dl Near or above optimal LDL 130-159 Borderline high LDL 160-189 High LDL greater than 189 mg/dl Very High Performed By: #### C BCAD, MG, URIC, LIPD, PHOS, CMP, DBIL #### [facility] [address] [facility] [place] [place] [id number] Cholesterol in VLDL [Mass/Vol] 23 mg/dL Normal [facility] Folder Gluer Operator Comment on above: Performed By: #### C BCAD, MG, URIC, LIPD, PHOS, CMP, DBIL #### [facility] [address] [place] [id number] Cholesterol.total/C holesterol in HDL [Mass ratio] 3 {ratio} Normal [facility] Specialist Comment on above: Performed By: #### C BCAD, MG, URIC, LIPD, PHOS, CMP, DBIL #### [facility] [address], [place] [id number] Triglyceride [Mass/Vol] 113 mg/dL Normal 30-150 [facility] Folder Gluer Operator Comment on above: Result Comment: TRIG ATPIII CLASSIFICATIONS TRIG less than 150 mg/dl Normal TRIG 150-199 mg/dl Borderline High TRIG 200-500 mg/dl High TRIG greather than 500 mg/dl Very High Performed By: #### C BCAD, MG, URIC, LIPD, PHOS, CMP, DBIL #### [facility] [address], [place] [id number] Magnesiumon 03-29-2021 Magnesium [Mass/Vol] 1.9 mg/dL Normal 1.5-2.3 [facility] Specialist Comment on above: Performed By: #### C BCAD, MG, URIC, LIPD, PHOS, CMP, DBIL #### [facility] [address] [place] [id number] Phosphoruson 03-29-2021 Phosphate [Mass/Vol] 4.1 mg/dL Normal 2.2-4.4 [facility] Folder Gluer Operator Comment on above: Performed By: #### C BCAD, MG, URIC, LIPD, PHOS, CMP, DBIL #### [facility] [address], [place] [id number] Uric Acidon 03-29-2021 URIC 7.5 mg/dL Normal 4.0-8.0 [facility] Folder Gluer Operator Comment on above: Result Comment: Refe rence range change 03/03/2017. Prior reference range F 2.4-5.7mg/dL. M 3.4-7.0 mg/dL. Performed By: #### C BCAD, MG, URIC, LIPD, PHOS, CMP, DBIL #### [facility] [address], [place] [id number] [facility] CHEST 2 [facility] 12-24-2020 [facility] CHEST 2 [facility] Department of Radiology [address] [place] [id number] == Patient Name: VISHAL DUKE : 1960 Sex: M Age: Race: White Pt. Location: [facility] Patient Status: D Ordered Date: 12/24/2020 3:50:00 PM Completed Date: 12/24/2020 03:48 PM Requesting Provider: ZULY VERDUZCO Attending Provider: Report Copy To: Signs & Symptoms: U07.1 COVID-19 I10 History: Solange Comments: covid Exam: [facility] CHEST 2 [facility] == [facility] CHEST 2 VWS 12/24/2020 [...] process. Electronically signed: Giovana Garrido. Transcribed by: [email or web address], User Resident: Electronically Signed by: GIOVANA GARRIDO @ 12/25/2020 12:24 PM Normal [facility] Comment on above: Order Comment: No: D o not add to previous draw CV'D BY [facility] AT 1240 Glucose Poct Glucometerson 0 12-12-2020 Commemt1 Glu2: Cleaned Meter Normal [facility] Comment on above: Result Comment: PERF ORMED BY: [place] [address] PATHOLOGIST MOTOR REBUILDER SHYANN OLIVIER M.D. Performed By: #### B MP, HS TROP, CBC, PT, PTT, BNP #### [facility] [address] Glucose [Mass/Vol] 147 mg/dL Normal [facility] Comment on above: Result Comment: [place] Glucose Reference Range is dependent on time and content of last meal. Glucose of more than 200 mg/dL in a nonstressed, ambulatory subject supports the diagnosis of Diabetes Mellitus. Performed By: #### B MP, HS TROP, CBC, PT, PTT, BNP #### [facility] [address] [place] [address] [place] Glucose [Mass/Vol] 107 mg/dL Normal [facility] Comment on above: Result Comment: [place] om Glucose Reference Range is dependent on time and content of last meal. Glucose of more than 200 mg/dL in a nonstressed, ambulatory subject supports the diagnosis of Diabetes Mellitus. PERFORMED BY: [place] [id number] PATHOLOGIST MOTOR REBUILDER SHYANN OLIVIER M.D. Performed By: #### B MP, HS TROP, CBC, PT, PTT, BNP #### [place] [id number] [facility]on 12-12-2020 XR chest 2V* [facility] [place] [address] [place] [address] XRay Report Signed Patient: Vishal Duke MR#: [id number] : 1960 Acct:[id number] Age/Sex: 59 / M ADM Date: 12/08/20 Loc: Room: [address] [place] [address] Type: ADM IN Attending Dr: Leonardo Storey [...] Farah Jr., M.D.12/12/2020 9:15 AM Dictation Location: [place] [address] Transcribed By: [facility] 12/12/20914 Dictated By: Faraz Farah Jr, MD 12/12/20908 Signed By: 12/12/20914 Normal [facility] Basic Metabolic Panelon 11-16 Calcium [Mass/Vol] 8.9 mg/dL Normal 8.2-10.2 [facility] Comment on above: Performed By: #### B MP, HS TROP, CBC, PT, PTT, BNP #### [address] Chloride [Moles/Vol] 105 mmol/L Normal 95-114 [facility] Comment on above: Performed By: #### B MP, HS TROP, CBC, PT, PTT, BNP #### [address] CO2 [Moles/Vol] 22.1 mmol/L Normal 22.0-30.0 [facility] Comment on above: Performed By: #### B MP, HS TROP, CBC, PT, PTT, BNP #### [address] Creatinine [Mass/Vol] 1.08 mg/dL Normal 0.64-1.27 [facility] Comment on above: Performed By: #### B MP, HS TROP, CBC, PT, PTT, BNP #### [address] Creatinine Clr Calc Pharmacy 78.44 [facility] Comment on above: Result Comment: PERF ORMED BY: [place] [address] PATHOLOGIST MOTOR REBUILDER SHYANN OLIVIER M.D. Performed By: #### B MP, HS TROP, CBC, PT, PTT, BNP #### [address] Estimated GFR ( Nata > 60 [facility] Comment on above: Result Comment: GFR estimated reference range: According to KDOQI guidelines, <60 ml/min/1.73m2 is sufficient to diagnose a patient with chronic kidney disease. Performed By: #### B MP, HS TROP, CBC, PT, PTT, BNP #### [address] Estimated GFR (Non- Am > 60 [facility] Comment on above: Performed By: #### B MP, HS TROP, CBC, PT, PTT, BNP #### [facility] [address] Glucose [Mass/Vol] 138 mg/dL High 70-100 [facility] Comment on above: Result Comment: [facility] Glucose Reference Range is dependent on time and content of last meal. Glucose of more than 200 mg/dL in a nonstressed, ambulatory subject supports the diagnosis of Diabetes Mellitus. ADA recommended reference range Performed By: #### B MP, HS TROP, CBC, PT, PTT, BNP #### [address] Potassium [Moles/Vol] 4.2 mmol/L Normal 3.5-5.1 [facility] Comment on above: Performed By: #### B MP, HS TROP, CBC, PT, PTT, BNP #### [address] Sodium [Moles/Vol] 138 mmol/L Normal 136-146 [facility] Comment on above: Performed By: #### B MP, HS TROP, CBC, PT, PTT, BNP #### [address] Urea nitrogen [Mass/Vol] 11 mg/dL Normal 9-23 [facility] Comment on above: Performed By: #### B MP, HS TROP, CBC, PT, PTT, BNP #### [address] Complete Blood Count Auto Di ffon 12-11-2020 Basophils (Bld) [#/Vol] 0.1 10*3/uL Normal 0.0-0.2 [facility] Comment on above: Result Comment: PERF ORMED BY: [place] [address] PATHOLOGIST MOTOR REBUILDER SHYANN OLIVIER M.D. Performed By: #### B MP, HS TROP, CBC, PT, PTT, BNP #### [address] Basophils/100 WBC (Bld) 0.7 % Normal . [facility] Comment on above: Performed By: #### B MP, HS TROP, CBC, PT, PTT, BNP #### [address] Eosinophils (Bld) [#/Vol] 0.1 10*3/uL Normal 0.0-0.45 [facility] Comment on above: Performed By: #### B MP, HS TROP, CBC, PT, PTT, BNP #### [address] Eosinophils/100 WBC (Bld) 1.3 % Normal . [facility] Comment on above: Performed By: #### B MP, HS TROP, CBC, PT, PTT, BNP #### [address] Erythrocyte distribution width (RBC) [Ratio] 15.2 % High 12.0-14.8 [facility] Comment on above: Performed By: #### B MP, HS TROP, CBC, PT, PTT, BNP #### [address] Hematocrit (Bld) [Volume fraction] 38.0 % Low 38.8-50.0 [facility] Comment on above: Performed By: #### B MP, HS TROP, CBC, PT, PTT, BNP #### [address] Hemoglobin (Bld) [Mass/Vol] 13.0 g/dL Normal 13.0-17.0 [facility] Comment on above: Performed By: #### B MP, HS TROP, CBC, PT, PTT, BNP #### [address] Lymphocytes (Bld) [#/Vol] 0.7 10*3/uL Low 1.00-4.8 [facility] Comment on above: Performed By: #### B MP, HS TROP, CBC, PT, PTT, BNP #### [address] Lymphocytes/100 WBC (Bld) 7.7 % Normal . [facility] Comment on above: Performed By: #### B MP, HS TROP, CBC, PT, PTT, BNP #### [address] MCH (RBC) [Entitic mass] 31.5 pg Normal 27.5-35.2 [facility] Comment on above: Performed By: #### B MP, HS TROP, CBC, PT, PTT, BNP #### [address] MCV (RBC) [Entitic vol] 91.7 fL Normal 83.5-101 [facility] Comment on above: Performed By: #### B MP, HS TROP, CBC, PT, PTT, BNP #### [address] Mean Corpuscular HGB Conc 34.3 g/dL Normal 32.5-35.6 [facility] Comment on above: Performed By: #### B MP, HS TROP, CBC, PT, PTT, BNP #### [address] Monocytes (Bld) [#/Vol] 0.9 10*3/uL High 0.0-0.8 [facility] Comment on above: Performed By: #### B MP, HS TROP, CBC, PT, PTT, BNP #### [address] Monocytes/100 WBC (Bld) 9.4 % Normal . [facility] Comment on above: Performed By: #### B MP, HS TROP, CBC, PT, PTT, BNP #### [address] Neutrophils (Bld) [#/Vol] 7.5 10*3/uL Normal 1.8-7.7 [facility] Comment on above: Performed By: #### B MP, HS TROP, CBC, PT, PTT, BNP #### [address] Neutrophils/100 WBC (Bld) 80.9 % Normal . [facility] Comment on above: Performed By: #### B MP, HS TROP, CBC, PT, PTT, BNP #### [facility] [address] Nucleated RBC/100 WBC (Bld) [Ratio] 0.0 % Normal 0-0.5 [facility] Comment on above: Performed By: #### B MP, HS TROP, CBC, PT, PTT, BNP #### [facility] [address] Platelet mean volume (Bld) [Entitic vol] 7.6 fL Normal 6.6-10.1 [facility] Comment on above: Performed By: #### B MP, HS TROP, CBC, PT, PTT, BNP #### [facility] [address] Platelets (Bld) [#/Vol] 385 10*3/uL Normal 150-450 [facility] Comment on above: Performed By: #### B MP, HS TROP, CBC, PT, PTT, BNP #### [address] RBC (Bld) [#/Vol] 4.14 10*6/uL Normal 3.90-5.60 [facility] Comment on above: Performed By: #### B MP, HS TROP, CBC, PT, PTT, BNP #### [address] WBC (Bld) [#/Vol] 9.3 10*3/uL Normal 4.5-11.0 [facility] Comment on above: Performed By: #### B MP, HS TROP, CBC, PT, PTT, BNP #### [address] Glucose Poct Glucometerson 0 12-11-2020 Glucose [Mass/Vol] 129 mg/dL Normal [facility] Comment on above: Result Comment: [facility] Glucose Reference Range is dependent on time and content of last meal. Glucose of more than 200 mg/dL in a nonstressed, ambulatory subject supports the diagnosis of Diabetes Mellitus. PERFORMED BY: [place] [address] PATHOLOGIST MOTOR REBUILDER SHYANN OLIVIER M.D. Performed By: #### B MP, HS TROP, CBC, PT, PTT, BNP #### [address] Partial Thromboplastin Timeo n 12-11-2020 aPTT Coag (Bld) [Time] 32.7 s Normal 25.1-36.5 [facility] Comment on above: Result Comment: PERF ORMED BY: [place] [address] PATHOLOGIST MOTOR REBUILDER SHYANN OLIVIER M.D. Performed By: #### B MP, HS TROP, CBC, PT, PTT, BNP #### [address] Prothrombin Time INRon 12-11 INR Coag (PPP) [Relative time] 1.2 {INR} Normal [facility] Comment on above: Result Comment: INR [...] HS TROP, CBC, PT, PTT, BNP #### [address] PT Coag (PPP) [Time] 13.8 s High 9.0-12.9 [facility] Comment on above: Performed By: #### B MP, HS TROP, CBC, PT, PTT, BNP #### [place] [address] [place] XR chest 1V portableon 12-11 XR chest 1V portable [facility] [place] [address] [place] [address] XRay Report Signed Patient: Vishal Duke MR#: [id number] : 1960 Acct:[id number] Age/Sex: 59 / M ADM Date: 12/08/20 Loc: Room: 5O4639-1 Type: ADM IN Attending Dr: Leonardo Storey [...] Biju Ag M.D.12/11/2020 12:40 PM Dictation Location: [place] [address] Transcribed By: [facility] 12/11/20 1240 Dictated By: Biju Ag MD 12/11/20 1236 Signed By: 12/11/20 1240 Normal [facility] Complete Blood Count Auto Di ffon 12-10-2020 Basophils (Bld) [#/Vol] 0.0 10*3/uL Normal 0.0-0.2 [facility] Comment on above: Result Comment: PERF ORMED BY: [place] [address] PATHOLOGIST MOTOR REBUILDER SHYANN OLIVIER M.D. Performed By: #### B MP, HS TROP, CBC, PT, PTT, BNP #### [facility] [address] [place] [address] [place] Basophils/100 WBC (Bld) 0.3 % Normal . [facility] Comment on above: Performed By: #### B MP, HS TROP, CBC, PT, PTT, BNP #### [facility] [address] [place] [address] [place] Eosinophils (Bld) [#/Vol] 0.1 10*3/uL Normal 0.0-0.45 [facility] Comment on above: Performed By: #### B MP, HS TROP, CBC, PT, PTT, BNP #### [address] Eosinophils/100 WBC (Bld) 0.5 % Normal . [facility] Comment on above: Performed By: #### B MP, HS TROP, CBC, PT, PTT, BNP #### [address] Erythrocyte distribution width (RBC) [Ratio] 15.1 % High 12.0-14.8 [facility] Comment on above: Performed By: #### B MP, HS TROP, CBC, PT, PTT, BNP #### [address] Hematocrit (Bld) [Volume fraction] 39.5 % Normal 38.8-50.0 [facility] Comment on above: Performed By: #### B MP, HS TROP, CBC, PT, PTT, BNP #### [address] Hemoglobin (Bld) [Mass/Vol] 13.1 g/dL Normal 13.0-17.0 [facility] Comment on above: Performed By: #### B MP, HS TROP, CBC, PT, PTT, BNP #### [address] Lymphocytes (Bld) [#/Vol] 0.5 10*3/uL Low 1.00-4.8 [facility] Comment on above: Performed By: #### B MP, HS TROP, CBC, PT, PTT, BNP #### [address] Lymphocytes/100 WBC (Bld) 4.0 % Normal . [facility] Comment on above: Performed By: #### B MP, HS TROP, CBC, PT, PTT, BNP #### [address] MCH (RBC) [Entitic mass] 31.2 pg Normal 27.5-35.2 [facility] Comment on above: Performed By: #### B MP, HS TROP, CBC, PT, PTT, BNP #### [address] MCV (RBC) [Entitic vol] 94.1 fL Normal 83.5-101 [facility] Comment on above: Performed By: #### B MP, HS TROP, CBC, PT, PTT, BNP #### [address] Mean Corpuscular HGB Conc 33.2 g/dL Normal 32.5-35.6 [facility] Comment on above: Performed By: #### B MP, HS TROP, CBC, PT, PTT, BNP #### [address] Monocytes (Bld) [#/Vol] 0.8 10*3/uL Normal 0.0-0.8 [facility] Comment on above: Performed By: #### B MP, HS TROP, CBC, PT, PTT, BNP #### [address] Monocytes/100 WBC (Bld) 6.6 % Normal . [facility] Comment on above: Performed By: #### B MP, HS TROP, CBC, PT, PTT, BNP #### [address] Neutrophils (Bld) [#/Vol] 10.5 10*3/uL High 1.8-7.7 [facility] Comment on above: Performed By: #### B MP, HS TROP, CBC, PT, PTT, BNP #### [address] Neutrophils/100 WBC (Bld) 88.6 % Normal . [facility] Comment on above: Performed By: #### B MP, HS TROP, CBC, PT, PTT, BNP #### [address] Nucleated RBC/100 WBC (Bld) [Ratio] 0.1 % Normal 0-0.5 [facility] Comment on above: Performed By: #### B MP, HS TROP, CBC, PT, PTT, BNP #### [address] Platelet mean volume (Bld) [Entitic vol] 8.1 fL Normal 6.6-10.1 [facility] Comment on above: Performed By: #### B MP, HS TROP, CBC, PT, PTT, BNP #### [address] Platelets (Bld) [#/Vol] 403 10*3/uL Normal 150-450 [facility] Comment on above: Performed By: #### B MP, HS TROP, CBC, PT, PTT, BNP #### [address] RBC (Bld) [#/Vol] 4.20 10*6/uL Normal 3.90-5.60 [facility] Comment on above: Performed By: #### B MP, HS TROP, CBC, PT, PTT, BNP #### [address] WBC (Bld) [#/Vol] 11.9 10*3/uL High 4.5-11.0 [facility] Comment on above: Performed By: #### B MP, HS TROP, CBC, PT, PTT, BNP #### [address] Comprehensive Metabolic Pane nitin 12-10-2020 Albumin [Mass/Vol] 3.1 g/dL Low 3.2-5.5 [facility] Comment on above: Result Comment: --- 12/10/201240 --- Alb previously reported as: 2.8 L gm/dL Performed By: #### B MP, HS TROP, CBC, PT, PTT, BNP #### [address] Albumin/Globulin [Mass ratio] 0.9 {ratio} Normal [facility] Comment on above: Result Comment: --- 12/10/201240 --- A/G Ratio previously reported as: 0.8 Performed By: #### B MP, HS TROP, CBC, PT, PTT, BNP #### [address] ALP [Catalytic activity/Vol] 98 U/L High 32-92 [facility] Comment on above: Result Comment: --- 12/10/201241 --- Alk Phos previously reported as: 91 U/L Performed By: #### B MP, HS TROP, CBC, PT, PTT, BNP #### [address] ALT [Catalytic activity/Vol] 123 U/L High 10-60 [facility] Comment on above: Result Comment: --- 12/10/201241 --- ALT previously reported as: 116 H U/L Performed By: #### B MP, HS TROP, CBC, PT, PTT, BNP #### [address] AST [Catalytic activity/Vol] 91 U/L High 10-42 [facility] Comment on above: Result Comment: --- 12/10/201241 --- AST previously reported as: 82 H U/L Performed By: #### B MP, HS TROP, CBC, PT, PTT, BNP #### [address] Bilirubin [Mass/Vol] 0.7 mg/dL Normal 0.3-1.2 [facility] Comment on above: Result Comment: --- 12/10/201240 --- TOTAL BILI previously reported as: 0.9 mg/dL Performed By: #### B MP, HS TROP, CBC, PT, PTT, BNP #### [address] Calcium [Mass/Vol] 9.0 mg/dL Normal 8.2-10.2 [facility] Comment on above: Result Comment: --- 12/10/201240 --- CA previously reported as: 8.2 mg/dL Performed By: #### B MP, HS TROP, CBC, PT, PTT, BNP #### [address] Chloride [Moles/Vol] 99 mmol/L Normal 95-114 [facility] Comment on above: Result Comment: --- 12/10/201240 --- CL previously reported as: 97 mmol/L Performed By: #### B MP, HS TROP, CBC, PT, PTT, BNP #### [address] CO2 [Moles/Vol] 20.4 mmol/L Low 22.0-30.0 [facility] Comment on above: Result Comment: --- 12/10/201240 --- CO2 previously reported as: 21.7 L mmol/L Performed By: #### B MP, HS TROP, CBC, PT, PTT, BNP #### [address] Creatinine [Mass/Vol] 1.09 mg/dL Normal 0.64-1.27 [facility] Comment on above: Result Comment: --- 12/10/201239 --- Creat previously reported as: 1.01 mg/dL Performed By: #### B MP, HS TROP, CBC, PT, PTT, BNP #### [address] Creatinine Clr Calc Pharmacy 77.72 [facility] Comment on above: Result Comment: --- 12/10/201239 --- Creat Calc PHA previously reported as: 83.87 PERFORMED BY: [place] [address] PATHOLOGIST [employer] REBUIL[employer] SHYANN OLIVIER M.D. Performed By: #### B MP, HS TROP, CBC, PT, PTT, BNP #### [address] Estimated GFR ( Nata > 60 [facility] Comment on above: Result Comment: --- 12/10/201226 --- GFReAA previously reported as: > 60 mL/Min GFR estimated reference range: According to KDOQI guidelines, <60 ml/min/1.73m2 is sufficient to diagnose a patient with chronic kidney disease. Performed By: #### B MP, HS TROP, CBC, PT, PTT, BNP #### [facility] [address] Estimated GFR (Non- Am > 60 Normal [facility] Comment on above: Result Comment: --- 12/10/207 --- GFRe previously reported as: > 60 mL/Min Performed By: #### B MP, HS TROP, CBC, PT, PTT, BNP #### [facility] [address] Globulin (S) [Mass/Vol] 3.3 g/dL [facility] Comment on above: Result Comment: --- 12/10/20 1227 --- Glob previously reported as: 3.3 gm/dL Performed By: #### B MP, HS TROP, CBC, PT, PTT, BNP #### [facility] [address] Glucose [Mass/Vol] 160 mg/dL High 70-100 [facility] Comment on above: Result Comment: Resu lts [...] HS TROP, CBC, PT, PTT, BNP #### [facility] [address] [place] [id number] [facility] Potassium [Moles/Vol] 4.1 mmol/L Normal 3.5-5.1 [facility] Comment on above: Result Comment: --- 12/10/20 1241 --- K previously reported as: 3.8 mmol/L Performed By: #### B MP, HS TROP, CBC, PT, PTT, BNP #### [facility] [address] Protein [Mass/Vol] 6.4 g/dL Normal 6.1-7.9 [facility] Comment on above: Result Comment: --- 12/10/20 1241 --- TP previously reported as: 6.1 gm/dL Performed By: #### B MP, HS TROP, CBC, PT, PTT, BNP #### [facility] [address] [place] [id number] [facility] Sodium [Moles/Vol] 134 mmol/L Low 136-146 [facility] Comment on above: Result Comment: --- 12/10/20 1241 --- NA previously reported as: 128 # L mmol/L Performed By: #### B MP, HS TROP, CBC, PT, PTT, BNP #### [facility] [address] [place] [id number] [facility] Urea nitrogen [Mass/Vol] 10 mg/dL Normal 9-23 [facility] Comment on above: Result Comment: --- 12/10/20 1239 --- BUN previously reported as: 10 mg/dL Performed By: #### B MP, HS TROP, CBC, PT, PTT, BNP #### [facility] [address] [place] [id number] [facility] ECG 12 lead ECGon 12-10-2020 ECG 12 lead ECG [facility] [place] [address] [place] [address] Electrocardiograph Report Signed Patient: Vishal Duke MR#: [id number] : 1960 Acct:[id number] Age/Sex: 59 / M ADM Date: 12/08/20 Loc: Room: [address] [place] [address] Type: ADM IN Attending Dr: Leonardo Storey [...] in Lateral leads Confirmed by [facility] ([id number][facility] on 12/10/2020 9:00:58 AM Referred By: Electronically Signed By:KADEN DAUGHERTY MD, FACC Transcribed By: MUS Dictated By: Kaden Daugherty MD, FACMai 12/10/20 0652 Signed By: 12/10/20 0901 Normal [facility] echo transthoracicon [facility] echo transthoracic [facility] [place] [address] [place] [address] Echocardiogram Signed Patient: Vishal Duke MR#: [id number] : 1960 Acct:[id number] Age/Sex: 59 / M ADM Date: 12/08/20 Loc: Room: [address] [place] [address] Type: ADM IN Attending Dr: Leonardo Storey MD Ordering Provider: Leonardo Storey MD Date of Service: 12/09/20 [facility] echo transthoracic: torsades de pointes Copies [...] DO 12/10/20 0816 Signed By: 12/10/20 1150 [facility] Glucose Poct Glucometerson 0 12-10-2020 Glucose [Mass/Vol] 157 mg/dL [facility] Comment on above: Result Comment: [facility] Glucose Reference Range is dependent on time and content of last meal. Glucose of more than 200 mg/dL in a nonstressed, ambulatory subject supports the diagnosis of Diabetes Mellitus. PERFORMED BY: [place] [address] PATHOLOGIST [employer] REBUIL[employer] SHYANN OLIVIER M.D. Performed By: #### B MP, HS TROP, CBC, PT, PTT, BNP #### [address] Commemt1 Glu2: Cleaned Meter [facility] Comment on above: Result Comment: PERF ORMED BY: [place] [address] PATHOLOGIST [employer] RE[employer]IL[employer] SHYANN OLIVIER M.D. Performed By: #### B MP, HS TROP, CBC, PT, PTT, BNP #### [place] [id number] [facility] Glucose [Mass/Vol] 122 mg/dL Normal [facility] Comment on above: Result Comment: [place] Glucose Reference Range is dependent on time and content of last meal. Glucose of more than 200 mg/dL in a nonstressed, ambulatory subject supports the diagnosis of Diabetes Mellitus. Performed By: #### B MP, HS TROP, CBC, PT, PTT, BNP #### [address] Glucose [Mass/Vol] 179 mg/dL Normal [facility] Comment on above: Result Comment: [place] Glucose Reference Range is dependent on time and content of last meal. Glucose of more than 200 mg/dL in a nonstressed, ambulatory subject supports the diagnosis of Diabetes Mellitus. PERFORMED BY: [place] [address] PATHOLOGIST [employer] REBUIL[employer] SHYANN OLIVIER M.D. Performed By: #### B MP, HS TROP, CBC, PT, PTT, BNP #### [address] [address] [facility] Troponin I High Sensitivityo n 12-10-2020 Troponin I High Sensitivity 9777 pg/mL Off scale high 0-20 [facility] Comment on above: Result Comment: PERF ORMED BY: [place] [address] PATHOLOGIST [employer] RE[employer] SHYANN OLIVIER M.D. Performed By: #### B MP, HS TROP, CBC, PT, PTT, BNP #### [place] [id number] [place] XR chest 1V portableon 12-10 XR chest 1V portable [facility] [place] [address] [place] [address] XRay Report Signed Patient: Vishal Duke MR#: [id number] : 1960 Acct:[id number] Age/Sex: 59 / M ADM Date: 12/08/20 Loc: Room: [address] [place] [address] Type: ADM IN Attending Dr: Leonardo Storey [...] Ajith Saleh M.D.12/10/2020 8:05 AM Dictation Location: [place] [address] Transcribed By: [facility] 12/10/20804 Dictated By: Ajith Saleh II, MD 12/10/20802 Signed By: 12/10/20804 Normal [facility] Basic Metabolic Panelon 11-16 Calcium [Mass/Vol] 9.6 mg/dL Normal 8.2-10.2 [facility] Comment on above: Performed By: #### B MP, HS TROP, CBC, PT, PTT, BNP #### [facility] [address] [place] [address] [place] Chloride [Moles/Vol] 101 mmol/L Normal 95-114 [facility] Comment on above: Performed By: #### B MP, HS TROP, CBC, PT, PTT, BNP #### [facility] [address] [place] [phone] [place] CO2 [Moles/Vol] 23.3 mmol/L Normal 22.0-30.0 [facility] Comment on above: Performed By: #### B MP, HS TROP, CBC, PT, PTT, BNP #### [address] Creatinine [Mass/Vol] 0.97 mg/dL Normal 0.64-1.27 [facility] Comment on above: Performed By: #### B MP, HS TROP, CBC, PT, PTT, BNP #### [address] Creatinine Clr Calc Pharmacy 87.33 [facility] Comment on above: Result Comment: PERF ORMED BY: [place] [address] PATHOLOGIST [employer] REBU[employer] SHYANN OLIVIER M.D. Performed By: #### B MP, HS TROP, CBC, PT, PTT, BNP #### [address] Estimated GFR ( Nata > 60 [facility] Comment on above: Result Comment: GFR estimated reference range: According to KDOQI guidelines, <60 ml/min/1.73m2 is sufficient to diagnose a patient with chronic kidney disease. Performed By: #### B MP, HS TROP, CBC, PT, PTT, BNP #### [address] Estimated GFR (Non- Am > 60 [facility] Comment on above: Performed By: #### B MP, HS TROP, CBC, PT, PTT, BNP #### [address] Glucose [Mass/Vol] 128 mg/dL High 70-100 [facility] Comment on above: Result Comment: [place] Glucose Reference Range is dependent on time and content of last meal. Glucose of more than 200 mg/dL in a nonstressed, ambulatory subject supports the diagnosis of Diabetes Mellitus. ADA recommended reference range Performed By: #### B MP, HS TROP, CBC, PT, PTT, BNP #### [address] Potassium [Moles/Vol] 4.2 mmol/L Normal 3.5-5.1 [facility] Comment on above: Performed By: #### B MP, HS TROP, CBC, PT, PTT, BNP #### [address] Sodium [Moles/Vol] 139 mmol/L Normal 136-146 [facility] Comment on above: Performed By: #### B MP, HS TROP, CBC, PT, PTT, BNP #### [address] Urea nitrogen [Mass/Vol] 15 mg/dL Normal 9-23 [facility] Comment on above: Performed By: #### B MP, HS TROP, CBC, PT, PTT, BNP #### [address] Complete Blood Count Auto Di ffon 12-09-2020 Basophils (Bld) [#/Vol] 0.1 10*3/uL Normal 0.0-0.2 [facility] Comment on above: Result Comment: PERF ORMED BY: [place] [address] PATHOLOGIST [employer] REBU[employer] SHYANN OLIVIER M.D. Performed By: #### B MP, HS TROP, CBC, PT, PTT, BNP #### [address] Basophils/100 WBC (Bld) 1.0 % Normal . [facility] Comment on above: Performed By: #### B MP, HS TROP, CBC, PT, PTT, BNP #### [address] Eosinophils (Bld) [#/Vol] 0.2 10*3/uL Normal 0.0-0.45 [facility] Comment on above: Performed By: #### B MP, HS TROP, CBC, PT, PTT, BNP #### [address] Eosinophils/100 WBC (Bld) 2.8 % Normal . [facility] Comment on above: Performed By: #### B MP, HS TROP, CBC, PT, PTT, BNP #### [address] Erythrocyte distribution width (RBC) [Ratio] 15.0 % High 12.0-14.8 [facility] Comment on above: Performed By: #### B MP, HS TROP, CBC, PT, PTT, BNP #### [address] Hematocrit (Bld) [Volume fraction] 41.9 % Normal 38.8-50.0 [facility] Comment on above: Performed By: #### B MP, HS TROP, CBC, PT, PTT, BNP #### [address] Hemoglobin (Bld) [Mass/Vol] 14.2 g/dL Normal 13.0-17.0 [facility] Comment on above: Performed By: #### B MP, HS TROP, CBC, PT, PTT, BNP #### [address] Lymphocytes (Bld) [#/Vol] 1.1 10*3/uL Normal 1.00-4.8 [facility] Comment on above: Performed By: #### B MP, HS TROP, CBC, PT, PTT, BNP #### [address] Lymphocytes/100 WBC (Bld) 13.9 % Normal . [facility] Comment on above: Performed By: #### B MP, HS TROP, CBC, PT, PTT, BNP #### [address] MCH (RBC) [Entitic mass] 31.4 pg Normal 27.5-35.2 [facility] Comment on above: Performed By: #### B MP, HS TROP, CBC, PT, PTT, BNP #### [address] MCV (RBC) [Entitic vol] 92.5 fL Normal 83.5-101 [facility] Comment on above: Performed By: #### B MP, HS TROP, CBC, PT, PTT, BNP #### [address] Mean Corpuscular HGB Conc 33.9 g/dL Normal 32.5-35.6 [facility] Comment on above: Performed By: #### B MP, HS TROP, CBC, PT, PTT, BNP #### [address] Monocytes (Bld) [#/Vol] 0.6 10*3/uL Normal 0.0-0.8 [facility] Comment on above: Performed By: #### B MP, HS TROP, CBC, PT, PTT, BNP #### [address] Monocytes/100 WBC (Bld) 8.3 % Normal . [facility] Comment on above: Performed By: #### B MP, HS TROP, CBC, PT, PTT, BNP #### [address] Neutrophils (Bld) [#/Vol] 5.8 10*3/uL Normal 1.8-7.7 [facility] Comment on above: Performed By: #### B MP, HS TROP, CBC, PT, PTT, BNP #### [address] Neutrophils/100 WBC (Bld) 74.0 % Normal . [facility] Comment on above: Performed By: #### B MP, HS TROP, CBC, PT, PTT, BNP #### [place] [address] [place] Nucleated RBC/100 WBC (Bld) [Ratio] 0.0 % Normal 0-0.5 [facility] Comment on above: Performed By: #### B MP, HS TROP, CBC, PT, PTT, BNP #### [address] Platelet mean volume (Bld) [Entitic vol] 8.0 fL Normal 6.6-10.1 [facility] Comment on above: Performed By: #### B MP, HS TROP, CBC, PT, PTT, BNP #### [facility] [address] Platelets (Bld) [#/Vol] 409 10*3/uL Normal 150-450 [facility] Comment on above: Performed By: #### B MP, HS TROP, CBC, PT, PTT, BNP #### [address] RBC (Bld) [#/Vol] 4.53 10*6/uL Normal 3.90-5.60 [facility] Comment on above: Performed By: #### B MP, HS TROP, CBC, PT, PTT, BNP #### [address] WBC (Bld) [#/Vol] 7.8 10*3/uL Normal 4.5-11.0 [facility] Comment on above: Performed By: #### B MP, HS TROP, CBC, PT, PTT, BNP #### [address] Creatine Kinaseon 12-09-2020 CK [Catalytic activity/Vol] 128 U/L Normal 22-269 [facility] Comment on above: Order Comment: get a ll labs @0315 per rn Performed By: #### B MP, HS TROP, CBC, PT, PTT, BNP #### [address] Creatinine Kinase MBon 12-09 CK.MB [Mass/Vol] 15.6 ng/mL High 0.6-6.3 [facility] Comment on above: Order Comment: get a ll labs @0315 per rn Performed By: #### B MP, HS TROP, CBC, PT, PTT, BNP #### [address] CKMB Relative Index 12.1 % High 0.00-2.50 [facility] Comment on above: Order Comment: get a ll labs @0315 per rn Performed By: #### B MP, HS TROP, CBC, PT, PTT, BNP #### [facility] [address] [place] [address] [place] ECG 12 lead ECGon 12-09-2020 ECG 12 lead ECG [facility] [place] [address] [place] [id number] Electrocardiograph Report Signed Patient: Vishal Duke MR#: [id number] : 1960 Acct:[id number] Age/Sex: 59 / M ADM Date: 12/08/20 Loc: Room: [address] [place] [address] Type: ADM IN Attending Dr: Leonardo Storey MD Ordering Provider: Daniel Prabhkaar DO Date of Service: 12/09/20 ECG/ECG 12 [...] 12/09/20 0816 Signed By: 12/09/20 1315 Normal [facility] Magnesiumon 12-09-2020 Magnesium [Mass/Vol] 2.0 mg/dL Normal 1.6-2.6 [facility] Comment on above: Order Comment: Comme nt Add on to am Result Comment: PERF ORMED BY: [address] [place] [id number] PATHOLOGIST [employer] RE[employer]IL[employer] SHYANN OLIVIER M.D. Performed By: #### B MP, HS TROP, CBC, PT, PTT, BNP #### [facility] [address] [place] [address] [place] Partial Thromboplastin Timeo n 12-09-2020 aPTT Coag (Bld) [Time] 37.7 s High 25.1-36.5 [facility] Comment on above: Result Comment: PERF ORMED BY: [place] [address] PATHOLOGIST [employer] REBUIL[employer] SHYANN OLIVIER M.D. Performed By: #### B MP, HS TROP, CBC, PT, PTT, BNP #### [facility] [address] [place] [address] Prothrombin Time INRon 12-09 INR Coag (PPP) [Relative time] 1.2 {INR} Normal [facility] Comment on above: Result Comment: INR [...] HS TROP, CBC, PT, PTT, BNP #### [facility] [address] [place] [address] PT Coag (PPP) [Time] 13.8 s High 9.0-12.9 [facility] Comment on above: Performed By: #### B MP, HS TROP, CBC, PT, PTT, BNP #### [facility] [address] [place] [address] Troponin I High Sensitivityo n 12-09-2020 Troponin I High Sensitivity 1641 pg/mL Off scale high 0-20 [facility] Comment on above: Order Comment: * RN to call lab when pt returns hko Result Comment: PERF ORMED BY: [place] [address] PATHOLOGIST [employer] REBUIL[employer] SHYANN OLIVIER M.D. Performed By: #### B MP, HS TROP, CBC, PT, PTT, BNP #### [facility] [address] [place] [address] Troponin I High Sensitivity 2472 pg/mL Off scale high 0-20 [facility] Comment on above: Order Comment: Comme nt during code blue Result Comment: PERF ORMED BY: [place] [address] PATHOLOGIST [employer] REBUIL[employer] SHYANN OLIVIER M.D. Performed By: #### B MP, HS TROP, CBC, PT, PTT, BNP #### [address] Troponin I High Sensitivity 1363 pg/mL Off scale high 0-20 [facility] Comment on above: Order Comment: get a ll labs @0315 per rn Result Comment: PERF ORMED BY: [place] [address] PATHOLOGIST [employer] REBUIL[employer] SHYANN OLIVIER M.D. Performed By: #### B MP, HS TROP, CBC, PT, PTT, BNP #### [address] B-Type Natriuretic Peptideon 12-08-2020 Natriuretic peptide B (Bld) [Mass/Vol] 199.0 pg/mL High 5-100 [facility] Comment on above: Result Comment: PERF ORMED BY: [place] [address] PATHOLOGIST [employer] REBUIL[employer] SHYANN OLIVIER M.D. Performed By: #### B MP, HS TROP, CBC, PT, PTT, BNP #### [address] Basic Metabolic Panelon 08-2 Calcium [Mass/Vol] 10.1 mg/dL Normal 8.2-10.2 [facility] Comment on above: Performed By: #### B MP, HS TROP, CBC, PT, PTT, BNP #### [address] Chloride [Moles/Vol] 101 mmol/L Normal 95-114 [facility] Comment on above: Performed By: #### B MP, HS TROP, CBC, PT, PTT, BNP #### [place] [address] [place] CO2 [Moles/Vol] 23.2 mmol/L Normal 22.0-30.0 [facility] Comment on above: Performed By: #### B MP, HS TROP, CBC, PT, PTT, BNP #### [facility] [address] Creatinine [Mass/Vol] 1.15 mg/dL Normal 0.64-1.27 [facility] Comment on above: Performed By: #### B MP, HS TROP, CBC, PT, PTT, BNP #### [facility] [address] Creatinine Clr Calc Pharmacy 81.22 [facility] Comment on above: Result Comment: PERF ORMED BY: [place] [address] PATHOLOGIST MOT[employer] REBUIL[employer] SHYANN OLIVIER M.D. Performed By: #### B MP, HS TROP, CBC, PT, PTT, BNP #### [address] Estimated GFR ( Nata > 60 [facility] Comment on above: Result Comment: GFR estimated reference range: According to KDOQI guidelines, <60 ml/min/1.73m2 is sufficient to diagnose a patient with chronic kidney disease. Performed By: #### B MP, HS TROP, CBC, PT, PTT, BNP #### [facility] [address] Estimated GFR (Non- Am > 60 [facility] Comment on above: Performed By: #### B MP, HS TROP, CBC, PT, PTT, BNP #### [facility] [address] Glucose [Mass/Vol] 153 mg/dL High 70-100 [facility] Comment on above: Result Comment: [place] Glucose Reference Range is dependent on time and content of last meal. Glucose of more than 200 mg/dL in a nonstressed, ambulatory subject supports the diagnosis of Diabetes Mellitus. ADA recommended reference range Performed By: #### B MP, HS TROP, CBC, PT, PTT, BNP #### [facility] [address] Potassium [Moles/Vol] 4.5 mmol/L Normal 3.5-5.1 [facility] Comment on above: Performed By: #### B MP, HS TROP, CBC, PT, PTT, BNP #### [facility] [address] Sodium [Moles/Vol] 139 mmol/L Normal 136-146 [facility] Comment on above: Performed By: #### B MP, HS TROP, CBC, PT, PTT, BNP #### [facility] [address] Urea nitrogen [Mass/Vol] 15 mg/dL Normal 9-23 [facility] Comment on above: Performed By: #### B MP, HS TROP, CBC, PT, PTT, BNP #### [facility] [address] COVID-19 Antigen[employer] 1 COVID-19 [facility] [...] its performance Tessa Disclaimer characteristic determined by [employer] and Tessa Disclaimer validated at [facility]. This Tessa Disclaimer test has not [...] is terminated or revoked sooner. PERFORMED BY: [facility] [place] [address] PATHOLOGIST [employer] REBUILDER SHYANN OLIVIER M.D. [facility] Comment on above: Performed By: #### S OFIANEG, COVID-19 [place], COVID 19 [facility] #### [facility] [address] [place] [id number] [facility] 12-08-2020 SARS-CoV-2 (COVID-19) RNA ADELINE+probe Ql (Unsp spec) Negative Normal Negative [facility] Comment on above: Order Comment: Healt hcare Worker?: N Result Comment: Testing for SARS-CoV-2 by RT-PCR This test was developed and its performance characteristics determined by [employer] and validated at the [facility]. This test has not been FDA [...] is terminated or revoked sooner. PERFORMED BY: [place] [address] PATHOLOGIST MOTOR REBUILDER SHYANN OLIVIER M.D. Performed By: #### B MP, HS TROP, CBC, PT, PTT, BNP #### [facility] [address] [place] [address] CT abdomen pelvis wo [place] [address] 12-08-2020 CT abdomen pelvis wo [facility] [place] [address] [place] [address] CT Scan Report Signed Patient: Vishal Duke MR#: [id number] : 1960 Acct:[id number] Age/Sex: 59 / M ADM Date: 12/08/20 Loc: ER Room: Type: [facility] ER Attending Dr: Ordering Provider: Irwin [...] Biju Ag M.D.12/08/2020 11:16 AM Dictation Location: [place] [address] Transcribed By: [facility] 12/08/20 1116 Dictated By: Biju Ag MD 12/08/20 1102 Signed By: 12/08/20 1116 Normal [facility] Complete Blood Count Auto Di ffon 12-08-2020 Basophils (Bld) [#/Vol] 0.1 10*3/uL Normal 0.0-0.2 [facility] Comment on above: Result Comment: PERF ORMED BY: [place] [address] PATHOLOGIST MOTOR REBUILDER SHYANN OLIVIER M.D. Performed By: #### B MP, HS TROP, CBC, PT, PTT, BNP #### [address] Basophils/100 WBC (Bld) 0.6 % Normal . [facility] Comment on above: Performed By: #### B MP, HS TROP, CBC, PT, PTT, BNP #### [address] Eosinophils (Bld) [#/Vol] 0.2 10*3/uL Normal 0.0-0.45 [facility] Comment on above: Performed By: #### B MP, HS TROP, CBC, PT, PTT, BNP #### [address] Eosinophils/100 WBC (Bld) 2.5 % Normal . [facility] Comment on above: Performed By: #### B MP, HS TROP, CBC, PT, PTT, BNP #### [address] Erythrocyte distribution width (RBC) [Ratio] 15.2 % High 12.0-14.8 [facility] Comment on above: Performed By: #### B MP, HS TROP, CBC, PT, PTT, BNP #### [address] Hematocrit (Bld) [Volume fraction] 41.7 % Normal 38.8-50.0 [facility] Comment on above: Performed By: #### B MP, HS TROP, CBC, PT, PTT, BNP #### [address] Hemoglobin (Bld) [Mass/Vol] 14.0 g/dL Normal 13.0-17.0 [facility] Comment on above: Performed By: #### B MP, HS TROP, CBC, PT, PTT, BNP #### [address] Lymphocytes (Bld) [#/Vol] 0.9 10*3/uL Low 1.00-4.8 [facility] Comment on above: Performed By: #### B MP, HS TROP, CBC, PT, PTT, BNP #### [address] Lymphocytes/100 WBC (Bld) 10.9 % Normal . [facility] Comment on above: Performed By: #### B MP, HS TROP, CBC, PT, PTT, BNP #### [address] MCH (RBC) [Entitic mass] 31.5 pg Normal 27.5-35.2 [facility] Comment on above: Performed By: #### B MP, HS TROP, CBC, PT, PTT, BNP #### [address] MCV (RBC) [Entitic vol] 93.7 fL Normal 83.5-101 [facility] Comment on above: Performed By: #### B MP, HS TROP, CBC, PT, PTT, BNP #### [address] Mean Corpuscular HGB Conc 33.6 g/dL Normal 32.5-35.6 [facility] Comment on above: Performed By: #### B MP, HS TROP, CBC, PT, PTT, BNP #### [address] Monocytes (Bld) [#/Vol] 0.6 10*3/uL Normal 0.0-0.8 [facility] Comment on above: Performed By: #### B MP, HS TROP, CBC, PT, PTT, BNP #### [address] Monocytes/100 WBC (Bld) 7.4 % Normal . [facility] Comment on above: Performed By: #### B MP, HS TROP, CBC, PT, PTT, BNP #### [address] Neutrophils (Bld) [#/Vol] 6.7 10*3/uL Normal 1.8-7.7 [facility] Comment on above: Performed By: #### B MP, HS TROP, CBC, PT, PTT, BNP #### [address] Neutrophils/100 WBC (Bld) 78.6 % Normal . [facility] Comment on above: Performed By: #### B MP, HS TROP, CBC, PT, PTT, BNP #### [address] Nucleated RBC/100 WBC (Bld) [Ratio] 0.1 % Normal 0-0.5 [facility] Comment on above: Performed By: #### B MP, HS TROP, CBC, PT, PTT, BNP #### [address] Platelet mean volume (Bld) [Entitic vol] 8.2 fL Normal 6.6-10.1 [facility] Comment on above: Performed By: #### B MP, HS TROP, CBC, PT, PTT, BNP #### [address] Platelets (Bld) [#/Vol] 414 10*3/uL Normal 150-450 [facility] Comment on above: Performed By: #### B MP, HS TROP, CBC, PT, PTT, BNP #### [address] RBC (Bld) [#/Vol] 4.44 10*6/uL Normal 3.90-5.60 [facility] Comment on above: Performed By: #### B MP, HS TROP, CBC, PT, PTT, BNP #### [address] WBC (Bld) [#/Vol] 8.5 10*3/uL Normal 4.5-11.0 [facility] Comment on above: Performed By: #### B MP, HS TROP, CBC, PT, PTT, BNP #### [address] Basophils (Bld) [#/Vol] 0.1 10*3/uL Normal 0.0-0.2 [facility] Comment on above: Result Comment: PERF ORMED BY: [place] [address] PATHOLOGIST MOTOR REBUILDER SHYANN OLIVIER M.D. Performed By: #### B MP, HS TROP, CBC, PT, PTT, BNP #### [address] Basophils/100 WBC (Bld) 0.7 % Normal . [facility] Comment on above: Performed By: #### B MP, HS TROP, CBC, PT, PTT, BNP #### [address] Eosinophils (Bld) [#/Vol] 0.2 10*3/uL Normal 0.0-0.45 [facility] Comment on above: Performed By: #### B MP, HS TROP, CBC, PT, PTT, BNP #### [address] Eosinophils/100 WBC (Bld) 1.8 % Normal . [facility] Comment on above: Performed By: #### B MP, HS TROP, CBC, PT, PTT, BNP #### [address] Erythrocyte distribution width (RBC) [Ratio] 15.5 % High 12.0-14.8 [facility] Comment on above: Performed By: #### B MP, HS TROP, CBC, PT, PTT, BNP #### [address] Hematocrit (Bld) [Volume fraction] 42.0 % Normal 38.8-50.0 [facility] Comment on above: Performed By: #### B MP, HS TROP, CBC, PT, PTT, BNP #### [address] Hemoglobin (Bld) [Mass/Vol] 14.2 g/dL Normal 13.0-17.0 [facility] Comment on above: Performed By: #### B MP, HS TROP, CBC, PT, PTT, BNP #### [address] Lymphocytes (Bld) [#/Vol] 0.8 10*3/uL Low 1.00-4.8 [facility] Comment on above: Performed By: #### B MP, HS TROP, CBC, PT, PTT, BNP #### [address] Lymphocytes/100 WBC (Bld) 7.7 % Normal . [facility] Comment on above: Performed By: #### B MP, HS TROP, CBC, PT, PTT, BNP #### [address] MCH (RBC) [Entitic mass] 31.3 pg Normal 27.5-35.2 [facility] Comment on above: Performed By: #### B MP, HS TROP, CBC, PT, PTT, BNP #### [address] MCV (RBC) [Entitic vol] 92.4 fL Normal 83.5-101 [facility] Comment on above: Performed By: #### B MP, HS TROP, CBC, PT, PTT, BNP #### [address] Mean Corpuscular HGB Conc 33.9 g/dL Normal 32.5-35.6 [facility] Comment on above: Performed By: #### B MP, HS TROP, CBC, PT, PTT, BNP #### [facility] [address] Monocytes (Bld) [#/Vol] 0.8 10*3/uL Normal 0.0-0.8 [facility] Comment on above: Performed By: #### B MP, HS TROP, CBC, PT, PTT, BNP #### [facility] [address] Monocytes/100 WBC (Bld) 7.5 % Normal . [facility] Comment on above: Performed By: #### B MP, HS TROP, CBC, PT, PTT, BNP #### [facility] [address] Neutrophils (Bld) [#/Vol] 9.0 10*3/uL High 1.8-7.7 [facility] Comment on above: Performed By: #### B MP, HS TROP, CBC, PT, PTT, BNP #### [facility] [address] [place] [address] [place] Neutrophils/100 WBC (Bld) 82.3 % Normal . [facility] Comment on above: Performed By: #### B MP, HS TROP, CBC, PT, PTT, BNP #### [facility] [address] [place] [address] [place] Nucleated RBC/100 WBC (Bld) [Ratio] 0.1 % Normal 0-0.5 [facility] Comment on above: Performed By: #### B MP, HS TROP, CBC, PT, PTT, BNP #### [facility] [address] [place] [address] [place] Platelet mean volume (Bld) [Entitic vol] 7.9 fL Normal 6.6-10.1 [facility] Comment on above: Performed By: #### B MP, HS TROP, CBC, PT, PTT, BNP #### [facility] [address] [place] [address] [place] Platelets (Bld) [#/Vol] 463 10*3/uL High 150-450 [facility] Comment on above: Performed By: #### B MP, HS TROP, CBC, PT, PTT, BNP #### [address] RBC (Bld) [#/Vol] 4.54 10*6/uL Normal 3.90-5.60 [facility] Comment on above: Performed By: #### B MP, HS TROP, CBC, PT, PTT, BNP #### [address] WBC (Bld) [#/Vol] 11.0 10*3/uL Normal 4.5-11.0 [facility] Comment on above: Performed By: #### B MP, HS TROP, CBC, PT, PTT, BNP #### [address] Creatine Kinaseon 12-08-2020 CK [Catalytic activity/Vol] 78 U/L Normal 22-269 [facility] Comment on above: Performed By: #### B MP, HS TROP, CBC, PT, PTT, BNP #### [address] CK [Catalytic activity/Vol] 67 U/L Normal 22-269 [facility] Comment on above: Performed By: #### B MP, HS TROP, CBC, PT, PTT, BNP #### [address] CK [Catalytic activity/Vol] 58 U/L Normal 22-269 [facility] Comment on above: Performed By: #### B MP, HS TROP, CBC, PT, PTT, BNP #### [place] [address] [place] Creatinine Kinase MBon 12-08 CK.MB [Mass/Vol] 6.3 ng/mL Normal 0.6-6.3 [facility] Comment on above: Performed By: #### B MP, HS TROP, CBC, PT, PTT, BNP #### [place] [address] CKMB Relative Index 8.0 % High 0.00-2.50 [facility] Comment on above: Performed By: #### B MP, HS TROP, CBC, PT, PTT, BNP #### [address] CK.MB [Mass/Vol] 4.2 ng/mL Normal 0.6-6.3 [facility] Comment on above: Performed By: #### B MP, HS TROP, CBC, PT, PTT, BNP #### [address] CKMB Relative Index 6.2 % High 0.00-2.50 [facility] Comment on above: Performed By: #### B MP, HS TROP, CBC, PT, PTT, BNP #### [address] CK.MB [Mass/Vol] 3.7 ng/mL Normal 0.6-6.3 [facility] Comment on above: Performed By: #### B MP, HS TROP, CBC, PT, PTT, BNP #### [address] CKMB Relative Index 6.3 % High 0.00-2.50 [facility] Comment on above: Performed By: #### B MP, HS TROP, CBC, PT, PTT, BNP #### [address] ECG 12 lead ECGon 12-08-2020 ECG 12 lead ECG [facility] [place] [address] Electrocardiograph Report Signed Patient: Vishal Duke MR#: [id number] : 1960 Acct:[id number] Age/Sex: 59 / M ADM Date: 12/08/20 Loc: Room: [address] [place] [address] Type: ADM INOo Attending Dr: Daniel Prabhakar [...] Lateral leads Confirmed by IRWIN LUTZ DO ([id number]) on 12/09/2020 6:02:40 AM Referred By: Electronically Signed By:IRWIN LUTZ DO Transcribed By: MUS Dictated By: Irwin Lutz DO 12/08/20 0950 Signed By: 12/09/20 0602 Normal [facility] Partial Thromboplastin Timeo n 12-08-2020 aPTT Coag (Bld) [Time] 131.9 s Off scale high 25.1-36.5 [facility] Comment on above: Result Comment: Resu lts called at 1947 on 12/08/20 PERFORMED BY: [place] [address] PATHOLOGIST MOTOR REBUILDER SHYANN OLIVIER M.D. Performed By: #### B MP, HS TROP, CBC, PT, PTT, BNP #### [facility] [address] [place], [place] [address] [facility] a[facility]TT Coag (Bld) [Time] 36.2 s Normal 25.1-36.5 [facility] Comment on above: Result Comment: PERF ORMED BY: [place] [address] PATHOLOGIST MOTOR REBUILDER SHYANN OLIVIER M.D. Performed By: #### B MP, HS TROP, CBC, PT, PTT, BNP #### [facility] [address] [place], [place] [address] [place] Prothrombin Time INRon 12-08 INR Coag (PPP) [Relative time] 1.5 {INR} Normal [facility] Comment on above: Result Comment: INR [...] HS TROP, CBC, PT, PTT, BNP #### [facility] [address] PT Coag (PPP) [Time] 16.1 s High 9.0-12.9 [facility] Comment on above: Performed By: #### B MP, HS TROP, CBC, PT, PTT, BNP #### [address] INR Coag (PPP) [Relative time] 1.3 {INR} Normal [facility] Comment on above: Result Comment: INR [...] HS TROP, CBC, PT, PTT, BNP #### [address] PT Coag (PPP) [Time] 14.0 s High 9.0-12.9 [facility] Comment on above: Performed By: #### B MP, HS TROP, CBC, PT, PTT, BNP #### [address] Tessa Ag Negativeon 12-09-19 21 Tessa Ag Negative Negative Normal Negative [facility] Comment on above: Result Comment: This is a duplicate Tessa SARS Antigen (GISSEL) result to be used for statistical tracking purpose only. PERFORMED BY: [place] [address] PATHOLOGIST MOTOR REBUILDER SHYANN OLIVIER M.D. Performed By: #### S OFIANEG, COVID-19 [place], COVID 19 [facility] #### [facility] [address] [place] [address] [place] Troponin I High Sensitivityo n 12-08-2020 Troponin I High Sensitivity 474 pg/mL Off scale high 0-20 [facility] Comment on above: Result Comment: PERF ORMED BY: [place] [address] PATHOLOGIST MOTOR REBUILDER SHYANN OLIVIER M.D. Performed By: #### B MP, HS TROP, CBC, PT, PTT, BNP #### [place] [address] [place] Troponin I High Sensitivity 317 pg/mL Off scale high 0-20 [facility] Comment on above: Result Comment: PERF ORMED BY: [place] [address] PATHOLOGIST MOTOR REBUILDER SHYANN OLIVIER M.D. Performed By: #### B MP, HS TROP, CBC, PT, PTT, BNP #### [place] [address] [place] Troponin I High Sensitivity 183 pg/mL Off scale high 0-20 [facility] Comment on above: Result Comment: Crit ical value result called at 1719 on 12/08/20 PERFORMED BY: [place] [address] PATHOLOGIST MOTOR REBUILDER HSYANN OLIVIER M.D. Performed By: #### B MP, HS TROP, CBC, PT, PTT, BNP #### [facility] [address] [place] [address] [place] Troponin I High Sensitivity 49 pg/mL High 0-20 [facility] Comment on above: Result Comment: PERF ORMED BY: [place] [address] PATHOLOGIST MOTOR REBUILDER SHYANN OLIVIER M.D. Performed By: #### B MP, HS TROP, CBC, PT, PTT, BNP #### [place] [address] [facility] X[facility] chest 1V portableon 12-08 XR chest 1V portable [facility] [place] [address] [place] [address] XRay Report Signed Patient: Vishal Duke MR#: [id number] : 1960 Acct:[id number] Age/Sex: 59 / M ADM Date: 12/08/20 Loc: ER Room: Type: [facility] ER Attending Dr: Ordering Provider: Irwin [...] Biju Ag M.D.12/08/2020 11:02 AM Dictation Location: [place] [address] Transcribed By: [facility] 12/08/20 1102 Dictated By: Biju Ag MD 12/08/20 1059 Signed By: 12/08/20 1102 [facility] TACROLIMUSon 12-04-2020 Tacrolimus (Bld) [Mass/Vol] 8.0 ng/mL Normal 5.0-20.0 [facility] Comment on above: Order Comment: Yes: Add to Previous draw if able Result Comment: The [employer]PER[employer] Tacrolimus assay is a delayed one-step immunoassay for the quantitative determination of tacrolimus in human whole blood using the chemiluminescent microparticle immunoassay (CMIA) technology with flexible assay protocols, referred to as Chemiflex. Performed By: #### 2 5508, 45830, 45782, 61782, 27061 #### [facility] [address] TROPONIN-Ion 12-04-2020 Troponin I.cardiac [Mass/Vol] 0.03 ng/mL Normal 0.00-0.04 [facility] Comment on above: Order Comment: No: D o not add to previous draw Pt in bath room askme to come back Result Comment: REFE RENCE RANGES: 0.00 - 0.04 ng/ml NORMAL 0.05 - 0.50 ng/ml INDETERMINATE > 0.50 ng/ml CONSISTENT WITH AN M.I. Performed By: #### 3 5200 #### [facility] [address] [facility] [address] Order Comment: No: D o not add to previous draw Performed By: #### 2 5508, 68571, 32337, 98043, 37083 #### [facility] [address] Troponin I.cardiac [Mass/Vol] 0.03 ng/mL Normal 0.00-0.04 [facility] Comment on above: Result Comment: REFE RENCE RANGES: 0.00 - 0.04 ng/ml NORMAL 0.05 - 0.50 ng/ml INDETERMINATE > 0.50 ng/ml CONSISTENT WITH AN M.I. Performed By: #### 2 5508, 97507, 51123, 53278, 75076 #### [facility] [address] ktx basic metabolic panelon 12-04-2020 Calcium [Mass/Vol] 8.9 mg/dL Normal 8.6-10.3 [facility] Comment on above: Performed By: #### 2 5508, 89410, 39709, 35165, 78593 #### [facility] [address] [place] [address], [facility] Chloride [Moles/Vol] 106 mmol/L Normal 98-107 [facility] Comment on above: Performed By: #### 2 5508, 72075, 75957, 64621, 66308 #### [facility] [address] [place] [address], [place] CO2 [Moles/Vol] 19 mmol/L Low 21-31 [facility] Comment on above: Performed By: #### 2 5508, 74865, 22038, 99036, 07799 #### [facility] [address] [place] [address], [place] Creatinine [Mass/Vol] 0.82 mg/dL Normal 0.70-1.30 [facility] Comment on above: Performed By: #### 2 5508, 29101, 80474, 97306, 45899 #### [facility] [address] [place] [address], [place] GFR/1.73 sq M.predicted among blacks MDRD (S/P/Bld) [Vol rate/Area] mL/min/{1.73_m2} Normal >60 [facility] Comment on above: Performed By: #### 2 5508, 83106, 78046, 74397, 19780 #### [facility] [address] [place] [address], [place] GFR/1.73 sq M.predicted among non-blacks MDRD (S/P/Bld) [Vol rate/Area] mL/min/{1.73_m2} Normal >60 [facility] Comment on above: Performed By: #### 2 5508, 57910, 20680, 27159, 28421 #### [facility] [address] [place] [address], [place] Glucose [Mass/Vol] 127 mg/dL High 70-100 [facility] Comment on above: Performed By: #### 2 5508, 52695, 05762, 83499, 56488 #### [facility] [address] [place] [address], [place] Potassium [Moles/Vol] 3.9 mmol/L Normal 3.5-5.1 [facility] Comment on above: Performed By: #### 2 5508, 07343, 33334, 20345, 08019 #### [facility] [address] [place] [address], [place] Sodium [Moles/Vol] 136 mmol/L Normal 136-145 [facility] Comment on above: Performed By: #### 2 5508, 41906, 72316, 80603, 75916 #### [facility] [address] [place] [address], [place] Urea nitrogen [Mass/Vol] 10 mg/dL Normal 7-25 [facility] Comment on above: Performed By: #### 2 5508, 06506, 28411, 43685, 66296 #### [facility] [address] [place] [address], [place] ktx cbc complete blood count on 12-04-2020 Erythrocyte distribution width (RBC) [Ratio] 14.6 % Normal 11.5-15.0 [facility] Comment on above: Performed By: #### 6 1405 #### [facility] [address] [place] [address], [place] Hematocrit (Bld) [Volume fraction] 38.7 % Low 39.0-50.0 [facility] Comment on above: Performed By: #### 6 1405 #### [facility] [address] [place] [address], [place] Hemoglobin (Bld) [Mass/Vol] 12.8 g/dL Low 13.0-17.0 [facility] Comment on above: Performed By: #### 6 1405 #### [facility] [address] [place] [address], [place] MCH (RBC) [Entitic mass] 31.3 pg Normal 27.0-33.0 [facility] Comment on above: Performed By: #### 6 1405 #### [facility] 3000 [facility]. [address] MCHC (RBC) [Mass/Vol] 33.1 g/dL Normal 32.0-35.0 [facility] Comment on above: Performed By: #### 6 1405 #### [facility] [address] [facility] [place] [address], [facility] MCV (RBC) [Entitic vol] 94.6 fL Normal 82.0-98.0 [facility] Comment on above: Performed By: #### 6 1405 #### [facility] [address] Nucleated RBC/100 WBC (Bld) [Ratio] 0 % Normal 0-0 [facility] Comment on above: Performed By: #### 6 1405 #### [facility] [address] [facility]. [address] PLAT CNT 224 10*3/uL Normal 150-400 [facility] Comment on above: Performed By: #### 6 1405 #### [facility] [address] [facility] [place] [address], [facility] RBC (Bld) [#/Vol] 4.09 10*6/uL Low 4.20-5.70 [facility] Comment on above: Performed By: #### 6 1405 #### [facility] [address] [facility] [place] [address], [facility] WBC (Bld) [#/Vol] 12.30 10*3/uL High 4.00-10.60 [facility] Comment on above: Performed By: #### 6 1405 #### [facility] [address] [place] [address], [facility] ktx magnesium bloodon 2020 Magnesium [Mass/Vol] 1.6 mg/dL Low 1.9-2.7 [facility] Comment on above: Performed By: #### 2 5508, 27082, 64016, 53335, 46325 #### [facility] [address] [place] [address], [facility] ktx phosphoruson 12-04-2020 Phosphate [Mass/Vol] 2.4 mg/dL Low 2.5-5.0 [facility] Comment on above: Performed By: #### 2 5508, 84303, 75267, 69977, 84001 #### [facility] [address] [place] [address], [facility] TACROLIMUSon 12-03-2020 Tacrolimus (Bld) [Mass/Vol] 9.1 ng/mL Normal 5.0-20.0 [facility] Comment on above: Order Comment: Yes: Add to Previous draw if able Result Comment: The [employer] Tacrolimus assay is a delayed one-step immunoassay for the quantitative determination of tacrolimus in human whole blood using the chemiluminescent microparticle immunoassay (CMIA) technology with flexible assay protocols, referred to as Chemiflex. Performed By: #### 2 5508, 60075, 07855, 26286, 00066 #### [facility] [address] [place] [address], [facility] ktx basic metabolic panelon 12-03-2020 Calcium [Mass/Vol] 9.5 mg/dL Normal 8.6-10.3 [facility] Comment on above: Performed By: #### 2 5508, 58603, 65633, 87299, 04012 #### [facility] [address] [place] [address], [place] Chloride [Moles/Vol] 102 mmol/L Normal 98-107 [facility] Comment on above: Performed By: #### 2 5508, 20775, 78039, 99202, 42044 #### [facility] [address] [place] [address], [place] CO2 [Moles/Vol] 22 mmol/L Normal 21-31 [facility] Comment on above: Performed By: #### 2 5508, 43294, 62888, 15669, 39894 #### [facility] [address] [place] [address], [place] Creatinine [Mass/Vol] 0.88 mg/dL Normal 0.70-1.30 [facility] Comment on above: Performed By: #### 2 5508, 75027, 53505, 17545, 52094 #### [facility] [address] [place] [address], [place] GFR/1.73 sq M.predicted among blacks MDRD (S/P/Bld) [Vol rate/Area] mL/min/{1.73_m2} Normal >60 [facility] Comment on above: Performed By: #### 2 5508, 68435, 12167, 79885, 00995 #### [facility] [address] [place] [address], [place] GFR/1.73 sq M.predicted among non-blacks MDRD (S/P/Bld) [Vol rate/Area] mL/min/{1.73_m2} Normal >60 [facility] Comment on above: Performed By: #### 2 5508, 57114, 19107, 36394, 87081 #### [facility] [address] [place] [address], [place] Glucose [Mass/Vol] 120 mg/dL High 70-100 [facility] Comment on above: Performed By: #### 2 5508, 85089, 07953, 89113, 09150 #### [facility] [address] [place] [address], [place] Potassium [Moles/Vol] 3.8 mmol/L Normal 3.5-5.1 [facility] Comment on above: Performed By: #### 2 5508, 36617, 35917, 14026, 41814 #### [facility] [address] [place] [address], [place] Sodium [Moles/Vol] 134 mmol/L Low 136-145 [facility] Comment on above: Performed By: #### 2 5508, 94211, 65768, 36569, 02865 #### [facility] [address] [place] [address], [facility] Urea nitrogen [Mass/Vol] 9 mg/dL Normal 7-25 [facility] Comment on above: Performed By: #### 2 5508, 40088, 07588, 08957, 87639 #### [facility] [address] [place] [address], [facility] ktx cbc complete blood count on 12-03-2020 Erythrocyte distribution width (RBC) [Ratio] 14.6 % Normal 11.5-15.0 [facility] Comment on above: Performed By: #### 6 1405 #### [facility] [address] [facility] [address] Hematocrit (Bld) [Volume fraction] 40.4 % Normal 39.0-50.0 [facility] Comment on above: Performed By: #### 6 1405 #### [facility] [address] [facility] [place] [place] [address], [facility] Hemoglobin (Bld) [Mass/Vol] 13.6 g/dL Normal 13.0-17.0 [facility] Comment on above: Performed By: #### 6 1405 #### [facility] [address] [facility] [place] [place] [address], [facility] MCH (RBC) [Entitic mass] 31.1 pg Normal 27.0-33.0 [facility] Comment on above: Performed By: #### 6 1405 #### [facility] [address] [place] [address], [facility] MCHC (RBC) [Mass/Vol] 33.7 g/dL Normal 32.0-35.0 [facility] Comment on above: Performed By: #### 6 1405 #### [facility] [address] [place] [address], [facility] MCV (RBC) [Entitic vol] 92.4 fL Normal 82.0-98.0 [facility] Comment on above: Performed By: #### 6 1405 #### [facility] [address] [facility] [place] [id number], [facility] Nucleated RBC/100 WBC (Bld) [Ratio] 0 % Normal 0-0 [facility] Comment on above: Performed By: #### 6 1405 #### [facility] [address] [facility] [place] [address], [facility] PLAT CNT 240 10*3/uL Normal 150-400 [facility] Comment on above: Performed By: #### 6 1405 #### [facility] [address] [facility] [place] [address], [facility] RBC (Bld) [#/Vol] 4.37 10*6/uL Normal 4.20-5.70 [facility] Comment on above: Performed By: #### 6 1405 #### [facility] [address] [facility] [place] [address], [facility] WBC (Bld) [#/Vol] 12.42 10*3/uL High 4.00-10.60 [facility] Comment on above: Performed By: #### 6 1405 #### [facility] [address] [facility] [place] [address], [facility] ktx magnesium bloodon 2020 Magnesium [Mass/Vol] 2.1 mg/dL Normal 1.9-2.7 [facility] Comment on above: Performed By: #### 2 5508, 91830, 90134, 94245, 89517 #### [facility] [address] [facility] [address], [facility] ktx phosphoruson 12-03-2020 Phosphate [Mass/Vol] 3.3 mg/dL Normal 2.5-5.0 [facility] Comment on above: Performed By: #### 2 5508, 97336, 04658, 93235, 85343 #### [facility] [address] [place] [address], [place] BASIC METABOLIC PANELon 11-15 Calcium [Mass/Vol] 10.1 mg/dL Normal 8.6-10.3 [facility] Comment on above: Order Comment: No: D o not add to previous draw Performed By: #### 2 5508, 14305, 27660, 80974, 28253 #### [facility] [address] [place] [address], [place] Chloride [Moles/Vol] 97 mmol/L Low 98-107 [facility] Comment on above: Order Comment: No: D o not add to previous draw Performed By: #### 2 5508, 69891, 08542, 58203, 48785 #### [facility] [address] [place] [address], [place] CO2 [Moles/Vol] 27 mmol/L Normal 21-31 [facility] Comment on above: Order Comment: No: D o not add to previous draw Performed By: #### 2 5508, 22123, 52726, 14769, 36619 #### [facility] [address] [place] [address], [place] Creatinine [Mass/Vol] 1.12 mg/dL Normal 0.70-1.30 [facility] Comment on above: Order Comment: No: D o not add to previous draw Performed By: #### 2 5508, 26223, 30000, 85776, 99622 #### [facility] [address] [place] [address], [place] GFR/1.73 sq M.predicted among blacks MDRD (S/P/Bld) [Vol rate/Area] mL/min/{1.73_m2} Normal >60 [facility] Comment on above: Order Comment: No: D o not add to previous draw Performed By: #### 2 5508, 25659, 46397, 64031, 15674 #### [facility] [address] [place] [address], [place] GFR/1.73 sq M.predicted among non-blacks MDRD (S/P/Bld) [Vol rate/Area] mL/min/{1.73_m2} Normal >60 [facility] Comment on above: Order Comment: No: D o not add to previous draw Performed By: #### 2 5508, 49370, 83967, 85133, 76626 #### [facility] [address] [place] [address], [place] Glucose [Mass/Vol] 124 mg/dL High 70-100 [facility] Comment on above: Order Comment: No: D o not add to previous draw Performed By: #### 2 5508, 59454, 01312, 12068, 65415 #### [facility] [address] [place] [address], [place] Potassium [Moles/Vol] 4.4 mmol/L Normal 3.5-5.1 [facility] Comment on above: Order Comment: No: D o not add to previous draw Performed By: #### 2 5508, 83017, 01800, 22574, 14802 #### [facility] [address] [place] [address], [place] Sodium [Moles/Vol] 133 mmol/L Low 136-145 [facility] Comment on above: Order Comment: No: D o not add to previous draw Performed By: #### 2 5508, 80588, 01511, 57776, 14728 #### [facility] [address] [place] [address], [place] Urea nitrogen [Mass/Vol] 17 mg/dL Normal 7-25 [facility] Comment on above: Order Comment: No: D o not add to previous draw Performed By: #### 2 5508, 88027, 18406, 12678, 64421 #### [facility] [address] CBC COMPLETE BLOOD COUNTon 0 12-02-2020 Erythrocyte distribution width (RBC) [Ratio] 14.7 % Normal 11.5-15.0 [facility] Comment on above: Order Comment: No: D o not add to previous draw Performed By: #### 6 1405 #### [facility] [address] [facility] [place] [address], [facility] Hematocrit (Bld) [Volume fraction] 43.7 % Normal 39.0-50.0 [facility] Comment on above: Order Comment: No: D o not add to previous draw Performed By: #### 6 1405 #### [facility] [address] Hemoglobin (Bld) [Mass/Vol] 14.1 g/dL Normal 13.0-17.0 [facility] Comment on above: Order Comment: No: D o not add to previous draw Performed By: #### 6 1405 #### [facility] [address] [facility] [place] [place] [address], [facility] MCH (RBC) [Entitic mass] 30.8 pg Normal 27.0-33.0 [facility] Comment on above: Order Comment: No: D o not add to previous draw Performed By: #### 6 1405 #### [facility] [address] [facility] [place] [place] [address], [facility] MCHC (RBC) [Mass/Vol] 32.3 g/dL Normal 32.0-35.0 [facility] Comment on above: Order Comment: No: D o not add to previous draw Performed By: #### 6 1405 #### [facility] [address] [facility] [address], [facility] MCV (RBC) [Entitic vol] 95.4 fL Normal 82.0-98.0 [facility] Comment on above: Order Comment: No: D o not add to previous draw Performed By: #### 6 1405 #### [facility] [address] [place] [address], [facility] Nucleated RBC/100 WBC (Bld) [Ratio] 0 % Normal 0-0 [facility] Comment on above: Order Comment: No: D o not add to previous draw Performed By: #### 6 1405 #### [facility] [address] [place] [address], [facility] PLAT CNT 257 10*3/uL Normal 150-400 [facility] Comment on above: Order Comment: No: D o not add to previous draw Performed By: #### 6 1405 #### [facility] [address] [facility] [place] [place] [address], [facility] RBC (Bld) [#/Vol] 4.58 10*6/uL Normal 4.20-5.70 [facility] Comment on above: Order Comment: No: D o not add to previous draw Performed By: #### 6 1405 #### [facility] [address] [facility] [place] [address], [facility] WBC (Bld) [#/Vol] 13.96 10*3/uL High 4.00-10.60 [facility] Comment on above: Order Comment: No: D o not add to previous draw Performed By: #### 6 1405 #### [facility] [address] [place] [id number], [facility] MAGNESIUM BLOODon 12-02-2020 Magnesium [Mass/Vol] 1.5 mg/dL Low 1.9-2.7 [facility] Comment on above: Order Comment: No: D o not add to previous draw Performed By: #### 2 5508, 94437, 70670, 00798, 94352 #### [facility] [address] [place] [id number], [facility] PHOSPHORUS BLOODon Phosphate [Mass/Vol] 3.8 mg/dL Normal 2.5-5.0 [facility] Comment on above: Order Comment: No: D o not add to previous draw Performed By: #### 2 5508, 15175, 81061, 20341, 79179 #### [facility] [address] PROTHROMBIN TIMEon INR Coag (PPP) [Relative time] 1.12 {INR} Normal 0.91-1.16 [facility] Comment on above: Order Comment: No: [...] CHEST 1995;[id number]. Performed By: #### 5 6101 ####[facility] PT Coag (PPP) [Time] 14.4 s Normal 12.3-14.8 [facility] Comment on above: Order Comment: No: D o not add to previous draw Result Comment: ALL RESULTS MUST BE INTERPRETED WITH RESPECT TO BLOOD DRAWING ARTIFACT OR DILUTION ERROR OF ANTICOAGULANT AT THE TIME OF SAMPLING. Performed By: #### 5 6101 ####[facility] [place] [address], [facility] CBC W/DIFFon 12-01-2020 ABS IMM GRANS 0.1 10*3/uL Normal 0.0-0.2 [facility] Comment on above: Performed By: #### 6 1405 #### [facility] [address] [facility] [address], [facility] ABS NEUTROPHILS 12.0 10*3/uL High 1.6-7.6 [facility] Comment on above: Performed By: #### 6 1405 #### [facility] [address] [place] [address], [facility] Basophils (Bld) [#/Vol] 0.1 10*3/uL Normal 0.0-0.2 [facility] Comment on above: Performed By: #### 6 1405 #### [facility] [address] Basophils/100 WBC (Bld) 0.6 % Normal 0.0-1.0 [facility] Comment on above: Performed By: #### 6 1405 #### [facility] [address] [place] [address], [facility] Eosinophils (Bld) [#/Vol] 0.1 10*3/uL Normal 0.0-0.5 [facility] Comment on above: Performed By: #### 6 1405 #### [facility] [address] [facility] [place] [place] [address], [facility] Eosinophils/100 WBC (Bld) 0.7 % Normal 0.0-6.0 [facility] Comment on above: Performed By: #### 6 1405 #### [facility] [address] Erythrocyte distribution width (RBC) [Ratio] 14.7 % Normal 11.5-15.0 [facility] Comment on above: Performed By: #### 6 1405 #### [facility] [address] [place] [address], [facility] Hematocrit (Bld) [Volume fraction] 47.3 % Normal 39.0-50.0 [facility] Comment on above: Performed By: #### 6 1405 #### [facility] [address] [facility] [address], [facility] Hemoglobin (Bld) [Mass/Vol] 15.5 g/dL Normal 13.0-17.0 [facility] Comment on above: Performed By: #### 6 1405 #### [facility] [address] [facility] [address], [facility] IMMATURE GRANS 0.7 % Normal 0.0-1.0 [facility] Comment on above: Performed By: #### 6 1405 #### [facility] [address] [facility] [address], [facility] Lymphocytes (Bld) [#/Vol] 0.6 10*3/uL Low 1.2-4.0 [facility] Comment on above: Performed By: #### 6 1405 #### [facility] [address] [facility] [address], [facility] Lymphocytes/100 WBC (Bld) 4.3 % Low 20.0-45.0 [facility] Comment on above: Performed By: #### 6 1405 #### [facility] [address] [facility] [address], [facility] MCH (RBC) [Entitic mass] 31.0 pg Normal 27.0-33.0 [facility] Comment on above: Performed By: #### 6 1405 #### [facility] [address] [facility] [place] [place] [address], [facility] MCHC (RBC) [Mass/Vol] 32.8 g/dL Normal 32.0-35.0 [facility] Comment on above: Performed By: #### 6 1405 #### [facility] [address] [place] [address], [facility] MCV (RBC) [Entitic vol] 94.6 fL Normal 82.0-98.0 [facility] Comment on above: Performed By: #### 6 1405 #### [facility] [address] [facility] [address], [facility] Monocytes (Bld) [#/Vol] 1.0 10*3/uL Normal 0.1-1.0 [facility] Comment on above: Performed By: #### 6 1405 #### [facility] [address] [place] [address], [facility] MONOS 7.3 % Normal 5.0-12.0 [facility] Comment on above: Performed By: #### 6 1405 #### [facility] [address] [place] [address], [facility] Neutrophils/100 WBC (Bld) 86.4 % High 40.0-72.0 [facility] Comment on above: Performed By: #### 6 1405 #### [facility] [address] [place] [address], [facility] Nucleated RBC/100 WBC (Bld) [Ratio] 0 % Normal 0-0 [facility] Comment on above: Performed By: #### 6 1405 #### [facility] [address] [place] [address], [facility] PLAT CNT 289 10*3/uL Normal 150-400 [facility] Comment on above: Performed By: #### 6 1405 #### [facility] [address] [place] [address], [facility] RBC (Bld) [#/Vol] 5.00 10*6/uL Normal 4.20-5.70 [facility] Comment on above: Performed By: #### 6 1405 #### [facility] [address] [place] [address], [facility] WBC (Bld) [#/Vol] 13.82 10*3/uL High 4.00-10.60 [facility] Comment on above: Performed By: #### 6 1405 #### [facility] [address] [place] [address], [facility] COMP METABOLIC PANELon 12-01 Albumin [Mass/Vol] 4.7 g/dL Normal 3.5-5.7 [facility] Comment on above: Performed By: #### 2 5508, 94862, 22942, 85829, 90203 #### [facility] [address] [place] [address], [place] ALKALINE PHOSPH 73 IU/L Normal 34-104 [facility] Comment on above: Performed By: #### 2 5508, 50159, 88651, 44201, 58725 #### [facility] [address] [place] [address], [place] ALT [Catalytic activity/Vol] 27 U/L Normal 7-52 [facility] Comment on above: Performed By: #### 2 5508, 93011, 91480, 40642, 65570 #### [facility] [address] [place] [address], [place] AST [Catalytic activity/Vol] 21 U/L Normal 13-39 [facility] Comment on above: Performed By: #### 2 5508, 37482, 12419, 32505, 94379 #### [facility] [address] [place] [address], [place] Bilirubin [Mass/Vol] 0.6 mg/dL Normal 0.3-1.0 [facility] Comment on above: Performed By: #### 2 5508, 51880, 56105, 56695, 30823 #### [facility] [address] [place] [address], [place] Calcium [Mass/Vol] 9.9 mg/dL Normal 8.6-10.3 [facility] Comment on above: Performed By: #### 2 5508, 50420, 61609, 02301, 65671 #### [facility] [address] [place] [id number], [facility] Chloride [Moles/Vol] 104 mmol/L Normal 98-107 [facility] Comment on above: Performed By: #### 2 5508, 34169, 05174, 49283, 07721 #### [facility] [address] [place] [address], [facility] CO2 [Moles/Vol] 25 mmol/L Normal 21-31 [facility] Comment on above: Performed By: #### 2 5508, 23030, 50644, 87949, 19902 #### [facility] [address] [place] [address], [facility] Creatinine [Mass/Vol] 1.40 mg/dL High 0.70-1.30 [facility] Comment on above: Performed By: #### 2 5508, 88954, 49499, 01689, 60263 #### [facility] [address] [place] [address], [facility] eGFR- non- 52 ml/min/1.73sq m Abnormal >60 [facility] Comment on above: Performed By: #### 2 5508, 48913, 37098, 32694, 61767 #### [facility] [address] [place] [address], [facility] GFR/1.73 sq M.predicted among blacks MDRD (S/P/Bld) [Vol rate/Area] mL/min/{1.73_m2} Normal >60 [facility] Comment on above: Performed By: #### 2 5508, 21724, 18508, 08929, 35239 #### [facility] [address] [place] [id number], [facility] Glucose [Mass/Vol] 133 mg/dL High 70-100 [facility] Comment on above: Performed By: #### 2 5508, 52391, 67005, 41075, 35199 #### [facility] [address] [place] [address], [facility] Potassium [Moles/Vol] 4.8 mmol/L Normal 3.5-5.1 [facility] Comment on above: Performed By: #### 2 5508, 33425, 16652, 33791, 74019 #### [facility] [address] [place] [address], [facility] Protein [Mass/Vol] 7.1 g/dL Normal 6.0-8.3 [facility] Comment on above: Performed By: #### 2 5508, 73992, 69959, 42766, 20078 #### [facility] [address] [place] [address], [facility] Sodium [Moles/Vol] 137 mmol/L Normal 136-145 [facility] Comment on above: Performed By: #### 2 5508, 57685, 63314, 60760, 78062 #### [facility] [address] [place] [address], [facility] Urea nitrogen [Mass/Vol] 19 mg/dL Normal 7-25 [facility] Comment on above: Performed By: #### 2 5508, 58087, 78350, 68280, 25526 #### [facility] [address] [facility] [place] [place] [address], [facility] CT ABDOMEN AND PELVIS WO CON TRASTon 12-01-2020 CT ABDOMEN AND PELVIS WO CONTRAST [facility] Department of Radiology [address] [place] [id number] == Patient Name: VISHAL DUKE : 1960 Sex: M Age: Race: White Pt. Location: [facility] Patient Status: E Ordered Date: 12/01/2020 [...] Otherwise no change in appearance of the [place] kidneys. No evidence of cyst rupture. Right [...] achievable. Electronically signed: José Herman. Transcribed by: [email or web address], User Resident: Electronically Signed by: JOSÉ HERMAN @ 12/01/2020 11:45 AM Normal [facility] Comment on above: Order Comment: No: D o not add to previous draw CV'D BY IMM LAB AT 1240 LIPASE BLOODon 12-01-2020 LIPASE 40 Units/L Normal [facility] Comment on above: Performed By: #### 2 5508, 78207, 32287, 78971, 76287 #### [facility] [address] [place] [address], [place] URINALYSIS REFLEXon 12-02-19 21 Appearance (U) SL CLOUDY Abnormal CLEAR [facility] Comment on above: Order Comment: Yes: Add to Previous draw if able Performed By: #### 2 5508, 75934, 73017, 30646, 30129 #### [facility] [address] [place] [address], [place] Bilirubin Ql (U) Negative Normal NEGATIVE [facility] Comment on above: Order Comment: Yes: Add to Previous draw if able Performed By: #### 2 5508, 56668, 49660, 76816, 61446 #### [facility] [address] [place] [address], [place] Color (U) TINO Abnormal YELLOW [facility] Comment on above: Order Comment: Yes: Add to Previous draw if able Performed By: #### 2 5508, 85498, 82903, 98616, 04428 #### [facility] [address] [place] [address], [facility] EPIS NONE SEEN Normal FEW,OCC,NONE SEEN [facility] Comment on above: Order Comment: Yes: Add to Previous draw if able Performed By: #### 2 5508, 00404, 31817, 18312, 39053 #### [facility] [address] [place] [address], [facility] Glucose Ql (U) Negative Normal NEGATIVE [facility] Comment on above: Order Comment: Yes: Add to Previous draw if able Performed By: #### 2 5508, 17343, 32266, 42066, 19270 #### [facility] [address] [place] [address], [facility] Hemoglobin Ql (U) Negative Normal NEGATIVE [facility] Comment on above: Order Comment: Yes: Add to Previous draw if able Performed By: #### 2 5508, 70462, 40135, 75001, 88992 #### [facility] [address] [place] [address], [place] KETONE Negative Normal NEGATIVE [facility] Comment on above: Order Comment: Yes: Add to Previous draw if able Performed By: #### 2 5508, 10799, 77416, 26446, 02512 #### [facility] [address] [place] [address], [place] LEUK MARIA A Negative Normal NEGATIVE [facility] Comment on above: Order Comment: Yes: Add to Previous draw if able Performed By: #### 2 5508, 02841, 11249, 21781, 32335 #### [facility] [address] [place] [address], [place] MUCUS THREADS MOD Abnormal NONE SEEN [facility] Comment on above: Order Comment: Yes: Add to Previous draw if able Performed By: #### 2 5508, 65274, 17801, 27502, 59509 #### [facility] [address] [place] [id number], [facility] Nitrite Ql (U) Negative Normal NEGATIVE [facility] Comment on above: Order Comment: Yes: Add to Previous draw if able Performed By: #### 2 5508, 26931, 94788, 54474, 92151 #### [facility] [address] [place] [address], [facility] pH (U) 5.0 [pH] Normal 5.0-8.0 [facility] Comment on above: Order Comment: Yes: Add to Previous draw if able Performed By: #### 2 5508, 12957, 90100, 89007, 85084 #### [facility] [address] [place] [id number], [facility] Protein Ql (U) 30 mg/dL Abnormal NEGATIVE [facility] Comment on above: Order Comment: Yes: Add to Previous draw if able Performed By: #### 2 5508, [id number], 20082, 85587, 72438 #### [facility] [address] [place] [address], [facility] RBC 0-2 Abnormal NONE SEEN [facility] Comment on above: Order Comment: Yes: Add to Previous draw if able Performed By: #### 2 5508, 83857, 90497, 85618, 71776 #### [facility] [address] [place] [id number], [facility] SPEC GRAV 1.026 High 1.015-1.020 [facility] Comment on above: Order Comment: Yes: Add to Previous draw if able Performed By: #### 2 5508, 26672, 14284, 38031, 46342 #### [facility] [address] [place] [id number], [facility] WBC UA 0-2 Abnormal NONE SEEN [facility] Comment on above: Order Comment: Yes: Add to Previous draw if able Performed By: #### 2 5508, 33074, 13852, 26673, 27182 #### [facility] [address] [facility]. [address] Pulmonary Functionon 11-29- 021 Pulmonary Function MR #: [id number] [facility] PT. Name: Vishal Duke Date: 11/27/2020 [...] Syed MD Date Trans: 11/29/2020 01:09 P/ [id number]:[id number] cc: Rosa M Gonzales M.D. [address] [place] [address] Normal [facility] ARTERIAL BLOOD GAS W/COOXon 11-27-2020 BASE EXCESS 3 mmol/L Normal -2-3 [facility] Comment on above: Performed By: #### 2 5508, 76941, 58598, 81665, 60989 #### [facility] [address] [place] [address], [place] COHB 1.5 % Normal 0.0-1.5 [facility] Comment on above: Performed By: #### 2 5508, 36450, 38515, 59173, 75528 #### [facility] [address] [place] [address], [place] [employer]ERY SYSTEMS ROOM AIR Normal [facility] Comment on above: Performed By: #### 2 5508, 55307, 05912, 45440, 94892 #### [facility] [address] [place] [address], [place] FIO2 0 % Normal [facility] Comment on above: Performed By: #### 2 5508, 15536, 54235, 70778, 15421 #### [facility] [address] [place] [address], [place] HCO3 (Bld) [Moles/Vol] 26 mmol/L Normal 21-28 [facility] Comment on above: Performed By: #### 2 5508, 85655, 88541, 13774, 18102 #### [facility] [address] [place] [address], [place] METHB 1.2 % Normal 0.0-1.5 [facility] Comment on above: Performed By: #### 2 5508, 61477, 84181, 83421, 34216 #### [facility] [address] [place] [address], [place] Oxygen (Bld) [Partial pressure] 93 mm[Hg] Normal 83-108 [facility] Comment on above: Performed By: #### 2 5508, 75742, 81483, 06886, 43136 #### [facility] [address] [place] [address], [facility] Oxygen saturation in Blood 95.6 % Normal 94.0-97.0 [facility] Comment on above: Performed By: #### 2 5508, 54374, 79997, 92543, 32866 #### [facility] [address] [place] [address], [facility] PCO2 35 mmHg Normal 35-45 [facility] Comment on above: Performed By: #### 2 5508, 38583, 18745, 72857, 96099 #### [facility] [address] [place] [address], [facility] pH (Bld) 7.48 [pH] High 7.35-7.45 [facility] Comment on above: Performed By: #### 2 5508, 27686, 68214, 45917, 30034 #### [facility] [address] [place] [address], [facility] THB 15.4 g/dL Normal 12.0-16.3 [facility] Comment on above: Performed By: #### 2 5508, 68227, 21975, 18405, 00688 #### [facility] [address] [place] [address], [facility] CREATININE BLOODon 1 Creatinine [Mass/Vol] 1.10 mg/dL Normal 0.70-1.30 [facility] Comment on above: Order Comment: No: D o not add to previous draw Performed By: #### 2 5508, 32318, 07587, 69220, 51073 #### [facility] [address] [place] [id number], [facility] GFR/1.73 sq M.predicted among blacks MDRD (S/P/Bld) [Vol rate/Area] mL/min/{1.73_m2} Normal >60 [facility] Comment on above: Order Comment: No: D o not add to previous draw Performed By: #### 2 5508, 16320, 26433, 01171, 73781 #### [facility] [address] [facility] [address], [facility] GFR/1.73 sq M.predicted among non-blacks MDRD (S/P/Bld) [Vol rate/Area] mL/min/{1.73_m2} Normal >60 [facility] Comment on above: Order Comment: No: D o not add to previous draw Performed By: #### 2 5508, 05489, 37739, 12458, 24015 #### [facility] [address] [facility] [place] [place] [address], [facility] Cardiovascular Lab Reporton 10-29-2020 Cardiovascular Lab Report [facility] Patient [facility] Vishal Medeiros MR #: [id number] Department of Physician: Domo Mejia M.D. Division of Service Date: 10/29/2020 Cardiology Birthdate: 1960 Adult Cardiovascular Room #: 3AB [id number] [facility] [address] [place] [address] Cardiovascular Laboratory Report FINAL IMPRESSIONS: 1. Severe [...] daily for minimum of 6 months preferably terminal clerk. 6. Will consider elective revascularization of the right coronary artery should the patient continue to experience significant exertional angina; this will be a high risk procedure given tortuosity, calcification and ectasia. 7. Follow up with Dr. Chester in the [place] office in the next 1 to 2 [...] artery, failed attempt at deployment of a 6-Romanian MynxGrip closure device. METHODS: After risks, benefits, and alternatives were explained, written informed consent was obtained. The patient was prepped and draped in usual sterile fashion over both groins. Using 1% lidocaine solution, local infiltration anesthesia was achieved. Using a micropuncture kit access to the right common femoral artery was obtained. A 6-Romanian x 11 cm sheath was inserted without difficulty. Baseline femoral angiography was performed. Bilateral selective coronary angiography was performed using JL4 and JR4 catheters. Angiography of internal mammary artery graft was performed using a 6-Romanian IM catheter. Limited angiography of the left subclavian was performed after retracting the catheter into the artery. After reviewing the images, it was elected to proceed with an interventional procedure. A 6-Romanian XB3.5 guide catheter was advanced over J-wire [...] pressure to achieve optimal hemostasis once a 6-Romanian MynxGrip closure device failed to deploy. Overall, [...] mammar (more content not included)... Normal [facility] BASIC METABOLIC PANELon 05-0 Calcium [Mass/Vol] 8.1 mg/dL Low 8.6-10.3 [facility] Comment on above: Order Comment: Yes: Add to Previous draw if able Performed By: #### 2 5508, 23539, 40966, 73657, 32878 #### [facility] [address] [place] [address], [facility] Chloride [Moles/Vol] 103 mmol/L Normal 98-107 [facility] Comment on above: Order Comment: Yes: Add to Previous draw if able Performed By: #### 2 5508, 41565, 38238, 74399, 00149 #### [facility] [address] [place] [address], [place] CO2 [Moles/Vol] 25 mmol/L Normal 21-31 [facility] Comment on above: Order Comment: Yes: Add to Previous draw if able Performed By: #### 2 5508, 95674, 27238, 08199, 50672 #### [facility] [address] [place] [address], [place] Creatinine [Mass/Vol] 0.88 mg/dL Normal 0.70-1.30 [facility] Comment on above: Order Comment: Yes: Add to Previous draw if able Performed By: #### 2 5508, 17165, 88345, 85394, 60975 #### [facility] [address] [place] [address], [place] GFR/1.73 sq M.predicted among blacks MDRD (S/P/Bld) [Vol rate/Area] mL/min/{1.73_m2} Normal >60 [facility] Comment on above: Order Comment: Yes: Add to Previous draw if able Performed By: #### 2 5508, 04746, 41608, 49479, 69622 #### [facility] [address] [place] [address], [place] GFR/1.73 sq M.predicted among non-blacks MDRD (S/P/Bld) [Vol rate/Area] mL/min/{1.73_m2} Normal >60 [facility] Comment on above: Order Comment: Yes: Add to Previous draw if able Performed By: #### 2 5508, 89226, 37724, 17760, 80225 #### [facility] [address] [place] [address], [place] Glucose [Mass/Vol] 119 mg/dL High 70-100 [facility] Comment on above: Order Comment: Yes: Add to Previous draw if able Performed By: #### 2 5508, 07756, 74987, 98229, 17449 #### [facility] [address] [place] [address], [place] Potassium [Moles/Vol] 3.6 mmol/L Normal 3.5-5.1 [facility] Comment on above: Order Comment: Yes: Add to Previous draw if able Performed By: #### 2 5508, 74660, 37905, 17039, 03903 #### [facility] [address] [place] [address], [place] Sodium [Moles/Vol] 133 mmol/L Low 136-145 [facility] Comment on above: Order Comment: Yes: Add to Previous draw if able Performed By: #### 2 5508, 49152, 53425, 26217, 97437 #### [facility] [address] [place] [address], [place] Urea nitrogen [Mass/Vol] 17 mg/dL Normal 7-25 [facility] Comment on above: Order Comment: Yes: Add to Previous draw if able Performed By: #### 2 5508, 78854, 33293, 52334, 29527 #### [facility] [address] [place] [address], [place] CBC COMPLETE BLOOD COUNTon - Erythrocyte distribution width (RBC) [Ratio] 13.3 % Normal 11.5-15.0 [facility] Comment on above: Order Comment: No: D o not add to previous draw Performed By: #### 6 1405 #### [facility] [address] [place] [address], [facility] Hematocrit (Bld) [Volume fraction] 47.6 % Normal 39.0-50.0 [facility] Comment on above: Order Comment: No: D o not add to previous draw Performed By: #### 6 1405 #### [facility] [address] [place] [address], [place] Hemoglobin (Bld) [Mass/Vol] 15.9 g/dL Normal 13.0-17.0 [facility] Comment on above: Order Comment: No: D o not add to previous draw Performed By: #### 6 1405 #### [facility] [address] [place] [address], [place] MCH (RBC) [Entitic mass] 29.1 pg Normal 27.0-33.0 [facility] Comment on above: Order Comment: No: D o not add to previous draw Performed By: #### 6 1405 #### [facility] [address] [place] [address], [place] MCHC (RBC) [Mass/Vol] 33.4 g/dL Normal 32.0-35.0 [facility] Comment on above: Order Comment: No: D o not add to previous draw Performed By: #### 6 1405 #### [facility] [address] [place] [address], [facility] MCV (RBC) [Entitic vol] 87.2 fL Normal 82.0-98.0 [facility] Comment on above: Order Comment: No: D o not add to previous draw Performed By: #### 6 1405 #### [facility] [address] [facility] [place] [place] [address], [facility] Nucleated RBC/100 WBC (Bld) [Ratio] 0 % Normal 0-0 [facility] Comment on above: Order Comment: No: D o not add to previous draw Performed By: #### 6 1405 #### [facility] [address] [facility] [place] [address], [facility] PLAT CNT 306 10*3/uL Normal 150-400 [facility] Comment on above: Order Comment: No: D o not add to previous draw Performed By: #### 6 1405 #### [facility] [address] [facility] [address], [facility] RBC (Bld) [#/Vol] 5.46 10*6/uL Normal 4.20-5.70 [facility] Comment on above: Order Comment: No: D o not add to previous draw Performed By: #### 6 1405 #### [facility] [address] [facility] [place] [place] [address], [facility] WBC (Bld) [#/Vol] 10.07 10*3/uL Normal 4.00-10.60 [facility] Comment on above: Order Comment: No: D o not add to previous draw Performed By: #### 6 1405 #### [facility] [address] [place] [address], [facility] PORTABLE CHEST 1 VIEWon 05-0 PORTABLE CHEST 1 VIEW [facility] Department of Radiology [address] [place] [address] == Patient Name: VISHAL DUKE : 1960 Sex: M Age: Race: White Pt. Location: [id number] Patient Status: I Ordered Date: 08/19/2020 6:00:00 [...] right. Electronically signed: Dariela Vincent. Transcribed by: [email or web address], User Resident: Electronically Signed by: DARIELA VINCENT @ 08/19/2020 10:20 AM Normal [facility] Comment on above: Order Comment: No: D o not add to previous draw CV'D BY [facility] AT 1240 TACROLIMUSon 08-19-2020 Tacrolimus (Bld) [Mass/Vol] 8.5 ng/mL Normal 5.0-20.0 [facility] Comment on above: Order Comment: No: D o not add to previous draw Result Comment: The [employer] DIST[employer]PERATOR Tacrolimus assay is a delayed one-step immunoassay for the quantitative determination of tacrolimus in human whole blood using the chemiluminescent microparticle immunoassay (CMIA) technology with flexible assay protocols, referred to as Chemiflex. Performed By: #### 2 5508, 51297, 97508, 41406, 40708 #### [facility] [address] [place] [address], [facility] BASIC METABOLIC PANELon Calcium [Mass/Vol] 8.8 mg/dL Normal 8.6-10.3 [facility] Comment on above: Order Comment: No: D o not add to previous draw Pt in bath room askme to come back Performed By: #### 3 5200 #### [facility] [address] [place] [address], [facility] Chloride [Moles/Vol] 100 mmol/L Normal 98-107 [facility] Comment on above: Order Comment: No: D o not add to previous draw Pt in bath room askme to come back Performed By: #### 3 5200 #### [facility] [address] [place] [address], [facility] CO2 [Moles/Vol] 28 mmol/L Normal 21-31 [facility] Comment on above: Order Comment: No: D o not add to previous draw Pt in bath room askme to come back Performed By: #### 3 5200 #### [facility] [address] [place] [address], [place] Creatinine [Mass/Vol] 0.87 mg/dL Normal 0.70-1.30 [facility] Comment on above: Order Comment: No: D o not add to previous draw Pt in bath room askme to come back Performed By: #### 3 5200 #### [facility] [address] [place] [address], [place] GFR/1.73 sq M.predicted among blacks MDRD (S/P/Bld) [Vol rate/Area] mL/min/{1.73_m2} Normal >60 [facility] Comment on above: Order Comment: No: D o not add to previous draw Pt in bath room askme to come back Performed By: #### 3 5200 #### [facility] [address] [place] [address], [place] GFR/1.73 sq M.predicted among non-blacks MDRD (S/P/Bld) [Vol rate/Area] mL/min/{1.73_m2} Normal >60 [facility] Comment on above: Order Comment: No: D o not add to previous draw Pt in bath room askme to come back Performed By: #### 3 5200 #### [facility] [address] [place] [address], [place] Glucose [Mass/Vol] 110 mg/dL High 70-100 [facility] Comment on above: Order Comment: No: D o not add to previous draw Pt in bath room askme to come back Performed By: #### 3 5200 #### [facility] [address] [place] [address], [place] Potassium [Moles/Vol] 3.7 mmol/L Normal 3.5-5.1 [facility] Comment on above: Order Comment: No: D o not add to previous draw Pt in bath room askme to come back Performed By: #### 3 5200 #### [facility] [address] [place] [address], [place] Sodium [Moles/Vol] 137 mmol/L Normal 136-145 [facility] Comment on above: Order Comment: No: D o not add to previous draw Pt in bath room askme to come back Performed By: #### 3 5200 #### [facility] [address] [place] [address], [place] Urea nitrogen [Mass/Vol] 18 mg/dL Normal 7-25 [facility] Comment on above: Order Comment: No: D o not add to previous draw Pt in bath room askme to come back Performed By: #### 3 5200 #### [facility] [address] [place] [address], [facility] TACROLIMUSon 08-17-2020 Tacrolimus (Bld) [Mass/Vol] 4.0 ng/mL Low 5.0-20.0 [facility] Comment on above: Order Comment: Unkno wn Result Comment: The [employer]PERATOR Tacrolimus assay is a delayed one-step immunoassay for the quantitative determination of tacrolimus in human whole blood using the chemiluminescent microparticle immunoassay (CMIA) technology with flexible assay protocols, referred to as Chemiflex. Performed By: #### 2 5508, 31523, 89532, 12806, 84679 #### [facility] [address] BASIC METABOLIC PANELon Calcium [Mass/Vol] 8.3 mg/dL Low 8.6-10.3 [facility] Comment on above: Order Comment: Yes: Add to Previous draw if able Performed By: #### 2 5508, 44946, 00293, 05521, 15782 #### [facility] [address] [place] [address], [facility] Chloride [Moles/Vol] 104 mmol/L Normal 98-107 [facility] Comment on above: Order Comment: Yes: Add to Previous draw if able Performed By: #### 2 5508, 40207, 67036, 87372, 99263 #### [facility] [address] [place] [address], [place] CO2 [Moles/Vol] 24 mmol/L Normal 21-31 [facility] Comment on above: Order Comment: Yes: Add to Previous draw if able Performed By: #### 2 5508, 33962, 26986, 88408, 48261 #### [facility] [address] [place] [address], [place] Creatinine [Mass/Vol] 0.82 mg/dL Normal 0.70-1.30 [facility] Comment on above: Order Comment: Yes: Add to Previous draw if able Performed By: #### 2 5508, 74903, 48496, 08080, 32408 #### [facility] [address] [place] [address], [place] GFR/1.73 sq M.predicted among blacks MDRD (S/P/Bld) [Vol rate/Area] mL/min/{1.73_m2} Normal >60 [facility] Comment on above: Order Comment: Yes: Add to Previous draw if able Performed By: #### 2 5508, 29717, 36416, 46932, 52782 #### [facility] [address] [place] [address], [place] GFR/1.73 sq M.predicted among non-blacks MDRD (S/P/Bld) [Vol rate/Area] mL/min/{1.73_m2} Normal >60 [facility] Comment on above: Order Comment: Yes: Add to Previous draw if able Performed By: #### 2 5508, 75473, 08353, 10188, 28935 #### [facility] [address] [place] [address], [place] Glucose [Mass/Vol] 114 mg/dL High 70-100 [facility] Comment on above: Order Comment: Yes: Add to Previous draw if able Performed By: #### 2 5508, 18050, 49082, 98878, 32987 #### [facility] [address] [place] [address], [place] Potassium [Moles/Vol] 4.1 mmol/L Normal 3.5-5.1 [facility] Comment on above: Order Comment: Yes: Add to Previous draw if able Performed By: #### 2 5508, 86524, 96927, 92584, 94939 #### [facility] [address] [place] [address], [place] Sodium [Moles/Vol] 135 mmol/L Low 136-145 [facility] Comment on above: Order Comment: Yes: Add to Previous draw if able Performed By: #### 2 5508, 74340, 96974, 76654, 94380 #### [facility] [address] Urea nitrogen [Mass/Vol] 24 mg/dL Normal 7-25 [facility] Comment on above: Order Comment: Yes: Add to Previous draw if able Performed By: #### 2 5508, 47859, 13689, 92611, 31657 #### [facility] [address] [place] [address], [facility] MAGNESIUM BLOODon 08-16-2020 Magnesium [Mass/Vol] 1.9 mg/dL Normal 1.9-2.7 [facility] Comment on above: Order Comment: No: D o not add to previous draw Performed By: #### 4 1000, 10006, 00331 ####[facility] [place] [address], [facility] PHOSPHORUS BLOODon Phosphate [Mass/Vol] 3.1 mg/dL Normal 2.5-5.0 [facility] Comment on above: Order Comment: No: D o not add to previous draw Performed By: #### 4 1000, 75457, 26251 ####[facility] [place] [address], [facility] TACROLIMUSon 08-16-2020 Tacrolimus (Bld) [Mass/Vol] 3.5 ng/mL Low 5.0-20.0 [facility] Comment on above: Order Comment: Unkno wn Result Comment: The [employer] Tacrolimus assay is a delayed one-step immunoassay for the quantitative determination of tacrolimus in human whole blood using the chemiluminescent microparticle immunoassay (CMIA) technology with flexible assay protocols, referred to as Chemiflex. Performed By: #### 2 5508, 70759, 87993, 41906, 06636 #### [facility] [address] C REACTIVE PROTEINon 021 CRP [Mass/Vol] 20.9 mg/L High 0.0-7.0 [facility] Comment on above: Order Comment: Yes: Add to Previous draw if able Performed By: #### 2 5508, 54742, 25421, 66621, 75757 #### [facility] [address] [facility] [place] [place] [address], [facility] CPKon 08-15-2020 CK [Catalytic activity/Vol] 38 U/L Normal 30-223 [facility] Comment on above: Order Comment: Unkno wn Performed By: #### 2 5508, 29513, 48534, 35277, 74927 #### [facility] [address] D DIMER TESTon 08-15-2020 D-DIMER TEST 2.03 mcg/mL FEU High 0.27-0.49 [facility] Comment on above: Order Comment: Yes: Add to Previous draw if able Result Comment: D-Di priscilla values of less than 0.50 ug/ml (FEU) are considered to be a negative predictor of thrombosis. However, the D-Dimer result should be used in conjunction with pretest probability and should not be used alone to diagnose a thrombotic event. Performed By: #### 2 5508, 35195, 32095, 91887, 91406 #### [facility] [address] [facility] [address], [facility] FERRITINon 08-15-2020 Ferritin [Mass/Vol] 1412 ng/mL High 24-336 [facility] Comment on above: Order Comment: Unkno wn Performed By: #### 2 5508, 71018, 98079, 81285, 47900 #### [facility] [address] [facility] [address], [facility] LDH BLOODon 08-15-2020 LDH 457 Units/L High 140-271 [facility] Comment on above: Order Comment: Unkno wn Performed By: #### 2 5508, 02782, 85098, 29569, 83290 #### [facility] [address] [place] [address], [facility] LIVER BATTERYon 08-15-2020 Albumin [Mass/Vol] 3.1 g/dL Low 3.5-5.7 [facility] Comment on above: Order Comment: Unkno wn Performed By: #### 2 5508, 94572, 31074, 48764, 18010 #### [facility] [address] [place] [address], [facility] ALKALINE PHOSPH 94 IU/L Normal 34-104 [facility] Comment on above: Order Comment: Unkno wn Performed By: #### 2 5508, 41503, 65584, 72673, 59924 #### [facility] [address] [place] [address], [facility] ALT [Catalytic activity/Vol] 108 U/L High 7-52 [facility] Comment on above: Order Comment: Unkno wn Performed By: #### 2 5508, 45055, 03329, 56561, 95940 #### [facility] [address] [place] [address], [facility] AST [Catalytic activity/Vol] 54 U/L High 13-39 [facility] Comment on above: Order Comment: Unkno wn Performed By: #### 2 5508, 91295, 43595, 14567, 39081 #### [facility] [address] [place] [address], [place] Bilirubin [Mass/Vol] 0.8 mg/dL Normal 0.3-1.0 [facility] Comment on above: Order Comment: Unkno wn Performed By: #### 2 5508, 58824, 24913, 94864, 49911 #### [facility] [address] [place] [address], [place] Bilirubin.direct [Mass/Vol] 0.2 mg/dL Normal 0.0-0.2 [facility] Comment on above: Order Comment: Unkno wn Performed By: #### 2 5508, 75222, 90794, 48891, 38981 #### [facility] [address] [place] [address], [facility] Protein [Mass/Vol] 5.9 g/dL Low 6.0-8.3 [facility] Comment on above: Order Comment: Unkno wn Performed By: #### 2 5508, 45833, 57733, 72139, 72725 #### [facility] [address] [place] [address], [facility] TACROLIMUSon 08-15-2020 Tacrolimus (Bld) [Mass/Vol] 4.4 ng/mL Low 5.0-20.0 [facility] Comment on above: Order Comment: Yes: Add to Previous draw if able Result Comment: The [employer] Tacrolimus assay is a delayed one-step immunoassay for the quantitative determination of tacrolimus in human whole blood using the chemiluminescent microparticle immunoassay (CMIA) technology with flexible assay protocols, referred to as Chemiflex. Performed By: #### 2 5508, 80383, 51010, 38338, 45738 #### [facility] [address] [place] [address], [facility] BASIC METABOLIC PANELon 3 Calcium [Mass/Vol] 8.2 mg/dL Low 8.6-10.3 [facility] Comment on above: Order Comment: No: D o not add to previous draw Performed By: #### 2 5508, 16538, 23861, 00195, 85211 #### [facility] [address] [place] [address], [facility] Chloride [Moles/Vol] 102 mmol/L Normal 98-107 [facility] Comment on above: Order Comment: No: D o not add to previous draw Performed By: #### 2 5508, 24933, 94501, 25027, 03394 #### [facility] [address] [place] [address], [facility] CO2 [Moles/Vol] 19 mmol/L Low 21-31 [facility] Comment on above: Order Comment: No: D o not add to previous draw Performed By: #### 2 5508, 20077, 91568, 03762, 99416 #### [facility] [address] [place] [address], [place] Creatinine [Mass/Vol] 0.95 mg/dL Normal 0.70-1.30 [facility] Comment on above: Order Comment: No: D o not add to previous draw Performed By: #### 2 5508, 36866, 95254, 24838, 14160 #### [facility] [address] [place] [address], [place] GFR/1.73 sq M.predicted among blacks MDRD (S/P/Bld) [Vol rate/Area] mL/min/{1.73_m2} Normal >60 [facility] Comment on above: Order Comment: No: D o not add to previous draw Performed By: #### 2 5508, 57656, 87826, 08898, 15291 #### [facility] [address] [place] [address], [place] GFR/1.73 sq M.predicted among non-blacks MDRD (S/P/Bld) [Vol rate/Area] mL/min/{1.73_m2} Normal >60 [facility] Comment on above: Order Comment: No: D o not add to previous draw Performed By: #### 2 5508, 65116, 56349, 46314, 45863 #### [facility] [address] [place] [address], [place] Glucose [Mass/Vol] 253 mg/dL High 70-100 [facility] Comment on above: Order Comment: No: D o not add to previous draw Performed By: #### 2 5508, 45008, 87979, 86936, 81442 #### [facility] [address] [place] [address], [place] Potassium [Moles/Vol] 4.0 mmol/L Normal 3.5-5.1 [facility] Comment on above: Order Comment: No: D o not add to previous draw Performed By: #### 2 5508, 23843, 57795, 36694, 25342 #### [facility] [address] [place] [address], [facility] Sodium [Moles/Vol] 130 mmol/L Low 136-145 [facility] Comment on above: Order Comment: No: D o not add to previous draw Performed By: #### 2 5508, 19421, 69285, 99758, 51396 #### [facility] [address] [place] [address], [facility] Urea nitrogen [Mass/Vol] 34 mg/dL High 7-25 [facility] Comment on above: Order Comment: No: D o not add to previous draw Performed By: #### 2 5508, 67095, 68264, 77277, 33342 #### [facility] [address] C REACTIVE PROTEINon 021 CRP [Mass/Vol] 19.7 mg/L High 0.0-7.0 [facility] Comment on above: Order Comment: No: D o not add to previous draw Performed By: #### 6 1405 #### [facility] [address] [place] [address], [facility] COMP METABOLIC PANELon 08-14 Albumin [Mass/Vol] 3.0 g/dL Low 3.5-5.7 [facility] Comment on above: Order Comment: This order is a replacement of the rejected order with accession [id number]. Performed By: #### 2 5508, 10521, 17300, 98492, 25915 #### [facility] [address] [place] [address], [facility] ALKALINE PHOSPH 81 IU/L Normal 34-104 [facility] Comment on above: Order Comment: This order is a replacement of the rejected order with accession [id number]. Performed By: #### 2 5508, 01118, 21009, 87241, 15614 #### [facility] [address] [place] [address], [facility] ALT [Catalytic activity/Vol] 80 U/L High 7-52 [facility] Comment on above: Order Comment: This order is a replacement of the rejected order with accession [id number]. Performed By: #### 2 5508, 13481, 58131, 14593, 87831 #### [facility] [address] [place] [id number], [facility] AST [Catalytic activity/Vol] 52 U/L High 13-39 [facility] Comment on above: Order Comment: This order is a replacement of the rejected order with accession [id number]. Performed By: #### 2 5508, 61133, 41996, 83046, 52479 #### [facility] [address] [place] [address], [facility] Bilirubin [Mass/Vol] 0.7 mg/dL Normal 0.3-1.0 [facility] Comment on above: Order Comment: This order is a replacement of the rejected order with accession [id number]. Performed By: #### 2 5508, 23310, 65010, 81988, 41827 #### [facility] [address] [place] [id number], [facility] Calcium [Mass/Vol] 8.1 mg/dL Low 8.6-10.3 [facility] Comment on above: Order Comment: This order is a replacement of the rejected order with accession [id number]. Performed By: #### 2 5508, 72766, 37930, 60550, 61595 #### [facility] [address] [place] [id number], [facility] Chloride [Moles/Vol] 102 mmol/L Normal 98-107 [facility] Comment on above: Order Comment: This order is a replacement of the rejected order with accession [id number]. Performed By: #### 2 5508, 72753, 38767, 43673, 90286 #### [facility] [address] [place] [address], [place] CO2 [Moles/Vol] 24 mmol/L Normal 21-31 [facility] Comment on above: Order Comment: This order is a replacement of the rejected order with accession [id number]. Performed By: #### 2 5508, 50618, 65263, 05428, 62445 #### [facility] [address] [place] [address], [place] Creatinine [Mass/Vol] 0.98 mg/dL Normal 0.70-1.30 [facility] Comment on above: Order Comment: This order is a replacement of the rejected order with accession [id number]. Performed By: #### 2 5508, 78230, 39148, 66300, 69182 #### [facility] [address] [place] [address], [place] GFR/1.73 sq M.predicted among blacks MDRD (S/P/Bld) [Vol rate/Area] mL/min/{1.73_m2} Normal >60 [facility] Comment on above: Order Comment: This order is a replacement of the rejected order with accession [id number]. Performed By: #### 2 5508, 45045, 35749, 99090, 39854 #### [facility] [address] [place] [address], [place] GFR/1.73 sq M.predicted among non-blacks MDRD (S/P/Bld) [Vol rate/Area] mL/min/{1.73_m2} Normal >60 [facility] Comment on above: Order Comment: This order is a replacement of the rejected order with accession [id number]. Performed By: #### 2 5508, 01009, 60505, 43392, 62772 #### [facility] [address] [place] [address], [place] Glucose [Mass/Vol] 141 mg/dL High 70-100 [facility] Comment on above: Order Comment: This order is a replacement of the rejected order with accession [id number]. Performed By: #### 2 5508, 77570, 07879, 92790, 07153 #### [facility] [address] [place] [id number], [facility] Potassium [Moles/Vol] 4.2 mmol/L Normal 3.5-5.1 [facility] Comment on above: Order Comment: This order is a replacement of the rejected order with accession [id number]. Performed By: #### 2 5508, 49079, 40141, 18425, 73818 #### [facility] [address] [place] [id number], [facility] Protein [Mass/Vol] 5.6 g/dL Low 6.0-8.3 [facility] Comment on above: Order Comment: This order is a replacement of the rejected order with accession [id number]. Performed By: #### 2 5508, 90583, 56147, 01502, 02150 #### [facility] [address] [place] [address], [facility] Sodium [Moles/Vol] 132 mmol/L Low 136-145 [facility] Comment on above: Order Comment: This order is a replacement of the rejected order with accession [id number]. Performed By: #### 2 5508, 76922, 34722, 80138, 74425 #### [facility] [address] [place] [address], [facility] Urea nitrogen [Mass/Vol] 32 mg/dL High 7-25 [facility] Comment on above: Order Comment: This order is a replacement of the rejected order with accession [id number]. Performed By: #### 2 5508, 72287, 13501, 45884, 76208 #### [facility] [address] [place] [id number], [facility] CPKon 08-14-2020 CK [Catalytic activity/Vol] 47 U/L Normal 30-223 [facility] Comment on above: Order Comment: No: D o not add to previous draw Performed By: #### 2 5508, 25989, 59696, 83742, 60494 #### [facility] [address] D DIMER TESTon 08-14-2020 D-DIMER TEST 2.41 mcg/mL FEU High 0.27-0.49 [facility] Comment on above: Order Comment: No: D o not add to previous draw Result Comment: D-Di priscilla values of less than 0.50 ug/ml (FEU) are considered to be a negative predictor of thrombosis. However, the D-Dimer result should be used in conjunction with pretest probability and should not be used alone to diagnose a thrombotic event. Performed By: #### 6 1405 #### [facility] [address] FERRITINon 08-14-2020 Ferritin [Mass/Vol] 836 ng/mL High 24-336 [facility] Comment on above: Order Comment: No: D o not add to previous draw Performed By: #### 2 5508, 14405, 98589, 52695, 11546 #### [facility] [address] [facility] [place] [address], [facility] LDH BLOODon 08-14-2020 LDH 310 Units/L High 140-271 [facility] Comment on above: Order Comment: No: D o not add to previous draw Performed By: #### 2 5508, 60312, 54862, 59022, 10757 #### [facility] [address] [place] [address], [facility] LIVER BATTERYon 08-14-2020 Albumin [Mass/Vol] 2.9 g/dL Low 3.5-5.7 [facility] Comment on above: Order Comment: No: D o not add to previous draw Performed By: #### 2 5508, 96176, 66707, 52180, 58273 #### [facility] [address] [place] [address], [facility] ALKALINE PHOSPH 78 IU/L Normal 34-104 [facility] Comment on above: Order Comment: No: D o not add to previous draw Performed By: #### 2 5508, 54848, 13922, 79849, 56960 #### [facility] [address] [place] [address], [place] ALT [Catalytic activity/Vol] 83 U/L High 7-52 [facility] Comment on above: Order Comment: No: D o not add to previous draw Performed By: #### 2 5508, 74219, 00373, 25816, 61598 #### [facility] [address] [place] [address], [facility] AST [Catalytic activity/Vol] 46 U/L High 13-39 [facility] Comment on above: Order Comment: No: D o not add to previous draw Performed By: #### 2 5508, 78815, 34031, 30696, 92572 #### [facility] [address] [place] [address], [place] Bilirubin [Mass/Vol] 0.6 mg/dL Normal 0.3-1.0 [facility] Comment on above: Order Comment: No: D o not add to previous draw Performed By: #### 2 5508, 04613, 96881, 90193, 48486 #### [facility] [address] [place] [address], [place] Bilirubin.direct [Mass/Vol] 0.2 mg/dL Normal 0.0-0.2 [facility] Comment on above: Order Comment: No: D o not add to previous draw Performed By: #### 2 5508, 43087, 15054, 90622, 53806 #### [facility] [address] [place] [address], [place] Protein [Mass/Vol] 5.3 g/dL Low 6.0-8.3 [facility] Comment on above: Order Comment: No: D o not add to previous draw Performed By: #### 2 5508, 09573, 90308, 46721, 54665 #### [facility] [address] [place] [address], [facility] OSMOLALITY BLOODon Osmolality [Osmolality] 291 mosm/kg Normal 285-305 [facility] Comment on above: Order Comment: No: D o not add to previous draw Performed By: #### 2 5508, 75171, 83623, 17794, 58621 #### [facility] [address] [place] [address], [facility] TACROLIMUSon 08-14-2020 Tacrolimus (Bld) [Mass/Vol] 9.7 ng/mL Normal 5.0-20.0 [facility] Comment on above: Order Comment: Yes: Add to Previous draw if able Result Comment: The [employer] Tacrolimus assay is a delayed one-step immunoassay for the quantitative determination of tacrolimus in human whole blood using the chemiluminescent microparticle immunoassay (CMIA) technology with flexible assay protocols, referred to as Chemiflex. Performed By: #### 2 5508, 48555, 62827, 61156, 24896 #### [facility] [address] Tacrolimus (Bld) [Mass/Vol] 5.7 ng/mL Normal 5.0-20.0 [facility] Comment on above: Order Comment: Yes: Add to Previous draw if able Result Comment: The [employer] Tacrolimus assay is a delayed one-step immunoassay for the quantitative determination of tacrolimus in human whole blood using the chemiluminescent microparticle immunoassay (CMIA) technology with flexible assay protocols, referred to as Chemiflex. Performed By: #### 2 5508, 50333, 31482, 44072, 01724 #### [facility] [address] [place] [address], [facility] COMP METABOLIC PANELon 08-12 Albumin [Mass/Vol] 3.2 g/dL Low 3.5-5.7 [facility] Comment on above: Order Comment: No: D o not add to previous draw Performed By: #### 2 5508, 65481, 71578, 27178, 92910 #### [facility] [address] [place] [address], [place] ALKALINE PHOSPH 89 IU/L Normal 34-104 [facility] Comment on above: Order Comment: No: D o not add to previous draw Performed By: #### 2 5508, 17239, 71327, 67257, 00716 #### [facility] [address] [place] [address], [place] ALT [Catalytic activity/Vol] 69 U/L High 7-52 [facility] Comment on above: Order Comment: No: D o not add to previous draw Performed By: #### 2 5508, 91204, 80322, 68511, 95865 #### [facility] [address] [place] [address], [place] AST [Catalytic activity/Vol] 54 U/L High 13-39 [facility] Comment on above: Order Comment: No: D o not add to previous draw Performed By: #### 2 5508, 35354, 11016, 06981, 97596 #### [facility] [address] [place] [address], [place] Bilirubin [Mass/Vol] 1.0 mg/dL Normal 0.3-1.0 [facility] Comment on above: Order Comment: No: D o not add to previous draw Performed By: #### 2 5508, 40410, 00459, 71518, 73427 #### [facility] [address] [place] [address], [place] Calcium [Mass/Vol] 8.8 mg/dL Normal 8.6-10.3 [facility] Comment on above: Order Comment: No: D o not add to previous draw Performed By: #### 2 5508, 59890, 33254, 08081, 90820 #### [facility] [address] [place] [address], [place] Chloride [Moles/Vol] 97 mmol/L Low 98-107 [facility] Comment on above: Order Comment: No: D o not add to previous draw Performed By: #### 2 5508, 44696, 84767, 32772, 88635 #### [facility] [address] [place] [address], [place] CO2 [Moles/Vol] 24 mmol/L Normal 21-31 [facility] Comment on above: Order Comment: No: D o not add to previous draw Performed By: #### 2 5508, 85823, 34673, 12970, 18352 #### [facility] [address] [place] [address], [place] Creatinine [Mass/Vol] 0.82 mg/dL Normal 0.70-1.30 [facility] Comment on above: Order Comment: No: D o not add to previous draw Performed By: #### 2 5508, 36783, 87452, 00134, 32571 #### [facility] [address] [place] [address], [place] GFR/1.73 sq M.predicted among blacks MDRD (S/P/Bld) [Vol rate/Area] mL/min/{1.73_m2} Normal >60 [facility] Comment on above: Order Comment: No: D o not add to previous draw Performed By: #### 2 5508, 88003, 85824, 39580, 63086 #### [facility] [address] [place] [address], [place] GFR/1.73 sq M.predicted among non-blacks MDRD (S/P/Bld) [Vol rate/Area] mL/min/{1.73_m2} Normal >60 [facility] Comment on above: Order Comment: No: D o not add to previous draw Performed By: #### 2 5508, 81739, 68880, 39517, 10277 #### [facility] [address] [place] [address], [place] Glucose [Mass/Vol] 154 mg/dL High 70-100 [facility] Comment on above: Order Comment: No: D o not add to previous draw Performed By: #### 2 5508, 45734, 05950, 22696, 12638 #### [facility] [address] [place] [address], [facility] Potassium [Moles/Vol] 4.9 mmol/L Normal 3.5-5.1 [facility] Comment on above: Order Comment: No: D o not add to previous draw Performed By: #### 2 5508, 20851, 36306, 94942, 29419 #### [facility] [address] [place] [address], [place] Protein [Mass/Vol] 6.1 g/dL Normal 6.0-8.3 [facility] Comment on above: Order Comment: No: D o not add to previous draw Performed By: #### 2 5508, 52537, 49041, 52845, 77200 #### [facility] [address] [place] [address], [place] Sodium [Moles/Vol] 128 mmol/L Low 136-145 [facility] Comment on above: Order Comment: No: D o not add to previous draw Performed By: #### 2 5508, 77143, 21011, 57111, 70722 #### [facility] [address] [place] [address], [place] Urea nitrogen [Mass/Vol] 32 mg/dL High 7-25 [facility] Comment on above: Order Comment: No: D o not add to previous draw Performed By: #### 2 5508, 00877, 50206, 76480, 81051 #### [facility] [address] [place] [address], [place] OSMOLALITY URINEon 1 OSMOLALITY 857 mOsm/kg Normal 50-1400 [facility] Comment on above: Order Comment: No: D o not add to previous draw Performed By: #### 2 5508, 99043, 02312, 64202, 98720 #### [facility] [address] [place] [address], [facility] SODIUM URINE RANDOMon 2020 Sodium (U) [Moles/Vol] 51 mmol/L Normal [facility] Comment on above: Order Comment: No: D o not add to previous draw Result Comment: Ther e are no established reference values for random urine specimens Performed By: #### 2 5508, 67769, 01451, 62285, 05041 #### [facility] [address] [place] [address], [facility] TACROLIMUSon 08-12-2020 Tacrolimus (Bld) [Mass/Vol] 5.2 ng/mL Normal 5.0-20.0 [facility] Comment on above: Order Comment: Unkno wn Result Comment: The [employer] Tacrolimus assay is a delayed one-step immunoassay for the quantitative determination of tacrolimus in human whole blood using the chemiluminescent microparticle immunoassay (CMIA) technology with flexible assay protocols, referred to as Chemiflex. Performed By: #### 9 9914 ####[facility] [facility] [place] [address], [facility] BASIC METABOLIC PANELon - Calcium [Mass/Vol] 8.6 mg/dL Normal 8.6-10.3 [facility] Comment on above: Order Comment: No: D o not add to previous draw Performed By: #### 2 5508, 31661, 07097, 12927, 13608 #### [facility] [address] [place] [address], [facility] Chloride [Moles/Vol] 97 mmol/L Low 98-107 [facility] Comment on above: Order Comment: No: D o not add to previous draw Performed By: #### 2 5508, 90004, 19477, 10337, 04520 #### [facility] [address] [place] [address], [facility] CO2 [Moles/Vol] 23 mmol/L Normal 21-31 [facility] Comment on above: Order Comment: No: D o not add to previous draw Performed By: #### 2 5508, 35961, 15048, 91286, 54442 #### [facility] [address] [place] [address], [place] Creatinine [Mass/Vol] 0.82 mg/dL Normal 0.70-1.30 [facility] Comment on above: Order Comment: No: D o not add to previous draw Performed By: #### 2 5508, 60326, 34497, 00573, 90441 #### [facility] [address] [place] [address], [place] GFR/1.73 sq M.predicted among blacks MDRD (S/P/Bld) [Vol rate/Area] mL/min/{1.73_m2} Normal >60 [facility] Comment on above: Order Comment: No: D o not add to previous draw Performed By: #### 2 5508, 55083, 50692, 63658, 60124 #### [facility] [address] [place] [address], [place] GFR/1.73 sq M.predicted among non-blacks MDRD (S/P/Bld) [Vol rate/Area] mL/min/{1.73_m2} Normal >60 [facility] Comment on above: Order Comment: No: D o not add to previous draw Performed By: #### 2 5508, 04808, 57045, 14661, 05118 #### [facility] [address] [place] [address], [place] Glucose [Mass/Vol] 166 mg/dL High 70-100 [facility] Comment on above: Order Comment: No: D o not add to previous draw Performed By: #### 2 5508, 19147, 48272, 18771, 53437 #### [facility] [address] [place] [address], [place] Potassium [Moles/Vol] 4.9 mmol/L Normal 3.5-5.1 [facility] Comment on above: Order Comment: No: D o not add to previous draw Performed By: #### 2 5508, 46828, 03274, 50310, 49404 #### [facility] [address] [place] [address], [facility] Sodium [Moles/Vol] 127 mmol/L Low 136-145 [facility] Comment on above: Order Comment: No: D o not add to previous draw Performed By: #### 2 5508, 72271, 51417, 87542, 82356 #### [facility] [address] [place] [address], [facility] Urea nitrogen [Mass/Vol] 33 mg/dL High 7-25 [facility] Comment on above: Order Comment: No: D o not add to previous draw Performed By: #### 2 5508, 20298, 78161, 98835, 09459 #### [facility] [address] [place] [address], [facility] CREATININE URINE RANDOMon Creatinine (U) [Mass/Vol] 59.0 mg/dL Normal [facility] Comment on above: Order Comment: Yes: Add to Previous draw if able Result Comment: Ther e are no established reference values for random urine specimens Performed By: #### 2 5508, 33032, 81317, 47649, 40543 #### [facility] [address] [place] [address], [place] MAGNESIUM BLOODon 08-11-2020 Magnesium [Mass/Vol] 1.7 mg/dL Low 1.9-2.7 [facility] Comment on above: Order Comment: No: D o not add to previous draw Performed By: #### 2 5508, 94283, 27148, 87968, 41279 #### [facility] [address] [place] [address], [place] SODIUM URINE RANDOMon 2020 Sodium (U) [Moles/Vol] 90 mmol/L Normal [facility] Comment on above: Order Comment: Yes: Add to Previous draw if able Result Comment: Ther e are no established reference values for random urine specimens Performed By: #### 2 5508, 75618, 33977, 62859, 77943 #### [facility] [address] [place] [address], [facility] TACROLIMUSon 08-11-2020 Tacrolimus (Bld) [Mass/Vol] 6.3 ng/mL Normal 5.0-20.0 [facility] Comment on above: Order Comment: Yes: Add to Previous draw if able Result Comment: The [employer] DISTANCE OPERATOR Tacrolimus assay is a delayed one-step immunoassay for the quantitative determination of tacrolimus in human whole blood using the chemiluminescent microparticle immunoassay (CMIA) technology with flexible assay protocols, referred to as Chemiflex. Performed By: #### 2 5508, 45279, 34693, 58270, 56179 #### [facility] [address] [place] [address], [facility] BASIC METABOLIC PANELon 07-17 Calcium [Mass/Vol] 8.3 mg/dL Low 8.6-10.3 [facility] Comment on above: Order Comment: Yes: Add to Previous draw if able Performed By: #### 2 5508, 19463, 31451, 78737, 30273 #### [facility] [address] [place] [address], [facility] Chloride [Moles/Vol] 102 mmol/L Normal 98-107 [facility] Comment on above: Order Comment: Yes: Add to Previous draw if able Performed By: #### 2 5508, 47478, 35556, 06733, 43913 #### [facility] [address] [place] [address], [place] CO2 [Moles/Vol] 20 mmol/L Low 21-31 [facility] Comment on above: Order Comment: Yes: Add to Previous draw if able Performed By: #### 2 5508, 44601, 88053, 65084, 68543 #### [facility] [address] [place] [id number], [place] Creatinine [Mass/Vol] 0.78 mg/dL Normal 0.70-1.30 [facility] Comment on above: Order Comment: Yes: Add to Previous draw if able Performed By: #### 2 5508, 97548, 66981, 18516, 39596 #### [facility] [address] [place] [address], [place] GFR/1.73 sq M.predicted among blacks MDRD (S/P/Bld) [Vol rate/Area] mL/min/{1.73_m2} Normal >60 [facility] Comment on above: Order Comment: Yes: Add to Previous draw if able Performed By: #### 2 5508, 19804, 23499, 52785, 99785 #### [facility] [address] [place] [address], [place] GFR/1.73 sq M.predicted among non-blacks MDRD (S/P/Bld) [Vol rate/Area] mL/min/{1.73_m2} Normal >60 [facility] Comment on above: Order Comment: Yes: Add to Previous draw if able Performed By: #### 2 5508, 44481, 56547, 58469, 37825 #### [facility] [address] [place] [address], [place] Glucose [Mass/Vol] 199 mg/dL High 70-100 [facility] Comment on above: Order Comment: Yes: Add to Previous draw if able Performed By: #### 2 5508, 96782, 49390, 40896, 18859 #### [facility] [address] [place] [address], [place] Potassium [Moles/Vol] 4.9 mmol/L Normal 3.5-5.1 [facility] Comment on above: Order Comment: Yes: Add to Previous draw if able Performed By: #### 2 5508, 11838, 92275, 56578, 75263 #### [facility] [address] [place] [address], [place] Sodium [Moles/Vol] 129 mmol/L Low 136-145 [facility] Comment on above: Order Comment: Yes: Add to Previous draw if able Performed By: #### 2 5508, 75924, 34953, 76943, 44327 #### [facility] [address] [place] [address], [place] Urea nitrogen [Mass/Vol] 33 mg/dL High 7-25 [facility] Comment on above: Order Comment: Yes: Add to Previous draw if able Performed By: #### 2 5508, 94769, 70950, 54171, 87561 #### [facility] [address] [place] [address], [facility] CBC COMPLETE BLOOD COUNTon 08-10-2020 Erythrocyte distribution width (RBC) [Ratio] 12.9 % Normal 11.5-15.0 [facility] Comment on above: Order Comment: No: D o not add to previous draw Performed By: #### 6 1405 #### [facility] [address] [place] [address], [facility] Hematocrit (Bld) [Volume fraction] 45.9 % Normal 39.0-50.0 [facility] Comment on above: Order Comment: No: D o not add to previous draw Performed By: #### 6 1405 #### [facility] [address] [place] [address], [facility] Hemoglobin (Bld) [Mass/Vol] 15.3 g/dL Normal 13.0-17.0 [facility] Comment on above: Order Comment: No: D o not add to previous draw Performed By: #### 6 1405 #### [facility] [address] [place] [address], [place] MCH (RBC) [Entitic mass] 29.3 pg Normal 27.0-33.0 [facility] Comment on above: Order Comment: No: D o not add to previous draw Performed By: #### 6 1405 #### [facility] [address] MCHC (RBC) [Mass/Vol] 33.3 g/dL Normal 32.0-35.0 [facility] Comment on above: Order Comment: No: D o not add to previous draw Performed By: #### 6 1405 #### [facility] [address] [place] [address], [facility] MCV (RBC) [Entitic vol] 87.8 fL Normal 82.0-98.0 [facility] Comment on above: Order Comment: No: D o not add to previous draw Performed By: #### 6 1405 #### [facility] [address] [facility] [place] [address], [facility] Nucleated RBC/100 WBC (Bld) [Ratio] 0 % Normal 0-0 [facility] Comment on above: Order Comment: No: D o not add to previous draw Performed By: #### 6 1405 #### [facility] [address] [place] [address], [facility] PLAT CNT 422 10*3/uL High 150-400 [facility] Comment on above: Order Comment: No: D o not add to previous draw Performed By: #### 6 1405 #### [facility] [address] [facility] [place] [place] [address], [facility] RBC (Bld) [#/Vol] 5.23 10*6/uL Normal 4.20-5.70 [facility] Comment on above: Order Comment: No: D o not add to previous draw Performed By: #### 6 1405 #### [facility] [address] [place] [id number], [facility] WBC (Bld) [#/Vol] 7.77 10*3/uL Normal 4.00-10.60 [facility] Comment on above: Order Comment: No: D o not add to previous draw Performed By: #### 6 1405 #### [facility] [address] [place] [id number], [facility] MAGNESIUM BLOODon 08-10-2020 Magnesium [Mass/Vol] 1.7 mg/dL Low 1.9-2.7 [facility] Comment on above: Order Comment: Yes: Add to Previous draw if able Performed By: #### 2 5508, 13761, 06701, 90160, 42203 #### [address] [address], [facility] PORTABLE CHEST 1 VIEWon 07-17 PORTABLE CHEST 1 VIEW [facility] Department of Radiology [address] [place] [id number] == Patient Name: VISHAL DUKE : 1960 Sex: M Age: Race: White Pt. Location: [id number] Patient Status: I Ordered Date: 08/10/2020 7:40:00 [...] pneumothorax. Electronically signed: Brett Mc. Transcribed by: [email or web address], User Resident: Electronically Signed by: BRETT MC @ 08/10/2020 10:10 AM Normal [facility] Comment on above: Order Comment: No: D o not add to previous draw CV'D BY IMM LAB AT 1240 TACROLIMUSon 08-10-2020 Tacrolimus (Bld) [Mass/Vol] 11.2 ng/mL Normal 5.0-20.0 [facility] Comment on above: Order Comment: No: D o not add to previous draw Result Comment: The [employer] DISTANCE OPERATOR Tacrolimus assay is a delayed one-step immunoassay for the quantitative determination of tacrolimus in human whole blood using the chemiluminescent microparticle immunoassay (CMIA) technology with flexible assay protocols, referred to as Chemiflex. Performed By: #### 2 5508, 61751, 85122, 98804, 09364 #### [facility] [address] TACROLIMUSon 08-09-2020 Tacrolimus (Bld) [Mass/Vol] 11.0 ng/mL Normal 5.0-20.0 [facility] Comment on above: Order Comment: Yes: Add to Previous draw if able Result Comment: The [employer] DISTANCE OPERATOR Tacrolimus assay is a delayed one-step immunoassay for the quantitative determination of tacrolimus in human whole blood using the chemiluminescent microparticle immunoassay (CMIA) technology with flexible assay protocols, referred to as Chemiflex. Performed By: #### 2 5508, 30631, 62366, 92499, 02367 #### [facility] [address] [place] [address], [facility] TROPONIN-Ion 08-09-2020 Troponin I.cardiac [Mass/Vol] 5.31 ng/mL Critically high 0.00-0.04 [facility] Comment on above: Order Comment: Yes: Add to Previous draw if able Result Comment: M-VT EVIOUS CRITICAL RESULT REFERENCE RANGES: 0.00 - 0.04 ng/ml NORMAL 0.05 - 0.50 ng/ml INDETERMINATE > 0.50 ng/ml CONSISTENT WITH AN M.I. Performed By: #### 2 5508, 08403, 52641, 98783, 56461 #### [facility] [address] UFH HEPARIN ASSAYon 08-10-19 21 UNFRACTIONATED HEPARIN <0.10 Critically low 0.30-0.70 [facility] Comment on above: Result Comment: [place] roxaban and Apixaban will interfere with the anti Xa assay used to monitor UFH and LMWH. Results called. Accurately read back by Luiz Shaffer RN at 0709 Performed By: #### 3 0477 ####[facility] COMP METABOLIC PANELon 08-08 Albumin [Mass/Vol] 2.8 g/dL Low 3.5-5.7 [facility] Comment on above: Order Comment: Yes: Add to Previous draw if able Performed By: #### 2 5508, 63703, 46633, 05091, 07383 #### [facility] [address] [place] [address], [facility] ALKALINE PHOSPH 70 IU/L Normal 34-104 [facility] Comment on above: Order Comment: Yes: Add to Previous draw if able Performed By: #### 2 5508, 09051, 27635, 21766, 15725 #### [facility] [address] [place] [id number], [facility] ALT [Catalytic activity/Vol] 30 U/L Normal 7-52 [facility] Comment on above: Order Comment: Yes: Add to Previous draw if able Performed By: #### 2 5508, 23451, 16278, 36175, 08382 #### [facility] [address] [place] [address], [facility] AST [Catalytic activity/Vol] 48 U/L High 13-39 [facility] Comment on above: Order Comment: Yes: Add to Previous draw if able Performed By: #### 2 5508, 67828, 58278, 31464, 15969 #### [facility] [address] [place] [address], [place] Bilirubin [Mass/Vol] 0.9 mg/dL Normal 0.3-1.0 [facility] Comment on above: Order Comment: Yes: Add to Previous draw if able Performed By: #### 2 5508, 92493, 99573, 33401, 86789 #### [facility] [address] [place] [address], [place] Calcium [Mass/Vol] 8.1 mg/dL Low 8.6-10.3 [facility] Comment on above: Order Comment: Yes: Add to Previous draw if able Performed By: #### 2 5508, 04210, 81026, 88348, 48254 #### [facility] [address] [place] [address], [place] Chloride [Moles/Vol] 104 mmol/L Normal 98-107 [facility] Comment on above: Order Comment: Yes: Add to Previous draw if able Performed By: #### 2 5508, 67286, 36417, 18765, 02322 #### [facility] [address] [place] [address], [place] CO2 [Moles/Vol] 19 mmol/L Low 21-31 [facility] Comment on above: Order Comment: Yes: Add to Previous draw if able Performed By: #### 2 5508, 03159, 65559, 99594, 89450 #### [facility] [address] [place] [address], [place] Creatinine [Mass/Vol] 0.92 mg/dL Normal 0.70-1.30 [facility] Comment on above: Order Comment: Yes: Add to Previous draw if able Performed By: #### 2 5508, 50749, 67589, 94871, 63146 #### [facility] [address] [place] [address], [place] GFR/1.73 sq M.predicted among blacks MDRD (S/P/Bld) [Vol rate/Area] mL/min/{1.73_m2} Normal >60 [facility] Comment on above: Order Comment: Yes: Add to Previous draw if able Performed By: #### 2 5508, 39045, 48530, 01925, 75624 #### [facility] [address] [place] [address], [place] GFR/1.73 sq M.predicted among non-blacks MDRD (S/P/Bld) [Vol rate/Area] mL/min/{1.73_m2} Normal >60 [facility] Comment on above: Order Comment: Yes: Add to Previous draw if able Performed By: #### 2 5508, 55415, 06715, 97873, 37284 #### [facility] [address] [place] [address], [place] Glucose [Mass/Vol] 159 mg/dL High 70-100 [facility] Comment on above: Order Comment: Yes: Add to Previous draw if able Performed By: #### 2 5508, 28228, 55968, 12499, 57478 #### [facility] [address] [place] [address], [place] Potassium [Moles/Vol] 5.2 mmol/L High 3.5-5.1 [facility] Comment on above: Order Comment: Yes: Add to Previous draw if able Performed By: #### 2 5508, 29249, 00825, 44235, 81115 #### [facility] [address] [place] [address], [place] Protein [Mass/Vol] 5.5 g/dL Low 6.0-8.3 [facility] Comment on above: Order Comment: Yes: Add to Previous draw if able Performed By: #### 2 5508, 27217, 18724, 59997, 84126 #### [facility] [address] Sodium [Moles/Vol] 133 mmol/L Low 136-145 [facility] Comment on above: Order Comment: Yes: Add to Previous draw if able Performed By: #### 2 5508, 85582, 62518, 15519, 96255 #### [facility] [address] [facility] [address] Urea nitrogen [Mass/Vol] 35 mg/dL High 7-25 [facility] Comment on above: Order Comment: Yes: Add to Previous draw if able Performed By: #### 2 5508, 64217, 10568, 18196, 13857 #### [facility] [address] [facility] [address] TACROLIMUSon 08-08-2020 Tacrolimus (Bld) [Mass/Vol] 7.8 ng/mL Normal 5.0-20.0 [facility] Comment on above: Order Comment: Unkno wn Result Comment: The [employer] DISTANCE OPERATOR Tacrolimus assay is a delayed one-step immunoassay for the quantitative determination of tacrolimus in human whole blood using the chemiluminescent microparticle immunoassay (CMIA) technology with flexible assay protocols, referred to as Chemiflex. Performed By: #### 2 5508, 07789, 87993, 71206, 81115 #### [facility] [address] [facility] [address] UFH HEPARIN ASSAYon 08-09-19 21 UNFRACTIONATED HEPARIN 0.74 IU/mL High 0.30-0.70 [facility] Comment on above: Result Comment: [place] roxaban and Apixaban will interfere with the anti Xa assay used to monitor UFH and LMWH. Performed By: #### 3 0477 ####[facility] [facility] C REACTIVE PROTEINon 021 CRP [Mass/Vol] 75.8 mg/L High 0.0-7.0 [facility] Comment on above: Order Comment: No: D o not add to previous draw CV'D BY [facility] AT 1240 Performed By: #### 6 1405 #### [facility] [address] [facility]. [address] SEDIMENTATION RATEon 021 SED RATE 30 mm/hr High 0-10 [facility] Comment on above: Order Comment: No: D o not add to previous draw Performed By: #### 6 1405 #### [facility] [address] [facility] [place] [place] [address], [facility] TACROLIMUSon 08-07-2020 Tacrolimus (Bld) [Mass/Vol] 9.1 ng/mL Normal 5.0-20.0 [facility] Comment on above: Order Comment: Unkno wn Result Comment: The [employer] DISTANCE OPERATOR Tacrolimus assay is a delayed one-step immunoassay for the quantitative determination of tacrolimus in human whole blood using the chemiluminescent microparticle immunoassay (CMIA) technology with flexible assay protocols, referred to as Chemiflex. Performed By: #### 9 9914 #### [facility] [address] [facility] [address], [facility] TROPONIN-Ion 08-07-2020 Troponin I.cardiac [Mass/Vol] 7.37 ng/mL Critically high 0.00-0.04 [facility] Comment on above: Order Comment: Yes: Add to Previous draw if able Result Comment: M-VT EVIOUS CRITICAL RESULT 42.94 REFERENCE RANGES: 0.00 - 0.04 ng/ml NORMAL 0.05 - 0.50 ng/ml INDETERMINATE > 0.50 ng/ml CONSISTENT WITH AN M.I. Performed By: #### 2 5508, 94407, 06949, 58002, 16264 #### [facility] [address] [facility] [address] UFH HEPARIN ASSAYon 08-08-19 UNFRACTIONATED HEPARIN 0.48 IU/mL Normal 0.30-0.70 [facility] Comment on above: Result Comment: Gabby roxaban and Apixaban will interfere with the anti Xa assay used to monitor UFH and LMWH. Performed By: #### 3 0477 ####[facility] CBC COMPLETE BLOOD COUNTon 0 - Erythrocyte distribution width (RBC) [Ratio] 13.2 % Normal 11.5-15.0 [facility] Comment on above: Order Comment: Yes: Add to Previous draw if able Performed By: #### 2 5508, 14255, 33909, 34109, 70519 #### [facility] [address] Hematocrit (Bld) [Volume fraction] 44.8 % Normal 39.0-50.0 [facility] Comment on above: Order Comment: Yes: Add to Previous draw if able Performed By: #### 2 5508, 85580, 11863, 30883, 20616 #### [facility] [address] [facility] [address] Hemoglobin (Bld) [Mass/Vol] 14.8 g/dL Normal 13.0-17.0 [facility] Comment on above: Order Comment: Yes: Add to Previous draw if able Performed By: #### 2 5508, 37384, 23286, 73919, 10616 #### [facility] [address] [place] [address], [facility] MCH (RBC) [Entitic mass] 29.0 pg Normal 27.0-33.0 [facility] Comment on above: Order Comment: Yes: Add to Previous draw if able Performed By: #### 2 5508, 96751, 70238, 64630, 00563 #### [facility] [address] [facility] [place] [address], [facility] MCHC (RBC) [Mass/Vol] 33.0 g/dL Normal 32.0-35.0 [facility] Comment on above: Order Comment: Yes: Add to Previous draw if able Performed By: #### 2 5508, 82591, 71818, 08988, 61588 #### [facility] [address] [place] [id number], [facility] MCV (RBC) [Entitic vol] 87.8 fL Normal 82.0-98.0 [facility] Comment on above: Order Comment: Yes: Add to Previous draw if able Performed By: #### 2 5508, 99728, 41444, 17558, 69704 #### [facility] [address] [place] [address], [facility] Nucleated RBC/100 WBC (Bld) [Ratio] 0 % Normal 0-0 [facility] Comment on above: Order Comment: Yes: Add to Previous draw if able Performed By: #### 2 5508, 15291, 60723, 85869, 50431 #### [facility] [address] [place] [address], [facility] PLAT CNT 367 10*3/uL Normal 150-400 [facility] Comment on above: Order Comment: Yes: Add to Previous draw if able Performed By: #### 2 5508, 26595, 52012, 40656, 60310 #### [facility] [address] [place] [address], [facility] RBC (Bld) [#/Vol] 5.10 10*6/uL Normal 4.20-5.70 [facility] Comment on above: Order Comment: Yes: Add to Previous draw if able Performed By: #### 2 5508, 74396, 01220, 63690, 01649 #### [facility] [address] [place] [id number], [place] WBC (Bld) [#/Vol] 3.94 10*3/uL Low 4.00-10.60 [facility] Comment on above: Order Comment: Yes: Add to Previous draw if able Performed By: #### 2 5508, 93710, 04930, 67865, 30232 #### [facility] [address] [place] [id number], [facility] COMP METABOLIC PANELon 08-06 Albumin [Mass/Vol] 3.0 g/dL Low 3.5-5.7 [facility] Comment on above: Order Comment: No: D o not add to previous drawLABS DRAWN IN SAME HAND PAUSED IV. PT IS TO REMAIN FACE DOWN ONSTOMACH PER RN SO THAT IS THE ONLY PLACE WE CAN DRAW FROM RIGHT NOW. Performed By: #### 2 5508, 05082, 68026, 52937, 65526 #### [facility] [address] [place] [address], [facility] ALKALINE PHOSPH 74 IU/L Normal 34-104 [facility] Comment on above: Order Comment: No: D o not add to previous drawLABS DRAWN IN SAME HAND PAUSED IV. PT IS TO REMAIN FACE DOWN ONSTOMACH PER RN SO THAT IS THE ONLY PLACE WE CAN DRAW FROM RIGHT NOW. Performed By: #### 2 5508, 40559, 44194, 77793, 24381 #### [facility] [address] [place] [address], [facility] ALT [Catalytic activity/Vol] 42 U/L Normal 7-52 [facility] Comment on above: Order Comment: No: D o not add to previous drawLABS DRAWN IN SAME HAND PAUSED IV. PT IS TO REMAIN FACE DOWN ONSTOMACH PER RN SO THAT IS THE ONLY PLACE WE CAN DRAW FROM RIGHT NOW. Performed By: #### 2 5508, 75151, 94647, 49344, 84321 #### [facility] [address] [place] [address], [facility] AST [Catalytic activity/Vol] 112 U/L High 13-39 [facility] Comment on above: Order Comment: No: D o not add to previous drawLABS DRAWN IN SAME HAND PAUSED IV. PT IS TO REMAIN FACE DOWN ONSTOMACH PER RN SO THAT IS THE ONLY PLACE WE CAN DRAW FROM RIGHT NOW. Performed By: #### 2 5508, 05475, 77915, 70486, 10148 #### [facility] [address] [place] [address], [facility] Bilirubin [Mass/Vol] 1.4 mg/dL High 0.3-1.0 [facility] Comment on above: Order Comment: No: D o not add to previous drawLABS DRAWN IN SAME HAND PAUSED IV. PT IS TO REMAIN FACE DOWN ONSTOMACH PER RN SO THAT IS THE ONLY PLACE WE CAN DRAW FROM RIGHT NOW. Performed By: #### 2 5508, 78363, 22785, 89414, 14802 #### [facility] [address] [place] [address], [facility] Calcium [Mass/Vol] 8.3 mg/dL Low 8.6-10.3 [facility] Comment on above: Order Comment: No: D o not add to previous drawLABS DRAWN IN SAME HAND PAUSED IV. PT IS TO REMAIN FACE DOWN ONSTOMACH PER RN SO THAT IS THE ONLY PLACE WE CAN DRAW FROM RIGHT NOW. Performed By: #### 2 5508, 19706, 45837, 87559, 19250 #### [facility] [address] [place] [address], [facility] Chloride [Moles/Vol] 105 mmol/L Normal 98-107 [facility] Comment on above: Order Comment: No: D o not add to previous drawLABS DRAWN IN SAME HAND PAUSED IV. PT IS TO REMAIN FACE DOWN ONSTOMACH PER RN SO THAT IS THE ONLY PLACE WE CAN DRAW FROM RIGHT NOW. Performed By: #### 2 5508, 00801, 59750, 60081, 02112 #### [facility] [address] [place] [address], [facility] CO2 [Moles/Vol] 20 mmol/L Low 21-31 [facility] Comment on above: Order Comment: No: D o not add to previous drawLABS DRAWN IN SAME HAND PAUSED IV. PT IS TO REMAIN FACE DOWN ONSTOMACH PER RN SO THAT IS THE ONLY PLACE WE CAN DRAW FROM RIGHT NOW. Performed By: #### 2 5508, 20684, 83963, 63822, 43727 #### [facility] [address] [place] [address], [facility] Creatinine [Mass/Vol] 0.91 mg/dL Normal 0.70-1.30 [facility] Comment on above: Order Comment: No: D o not add to previous drawLABS DRAWN IN SAME HAND PAUSED IV. PT IS TO REMAIN FACE DOWN ONSTOMACH PER RN SO THAT IS THE ONLY PLACE WE CAN DRAW FROM RIGHT NOW. Performed By: #### 2 5508, 92449, 89621, 38927, 54415 #### [facility] [address] [place] [address], [facility] GFR/1.73 sq M.predicted among blacks MDRD (S/P/Bld) [Vol rate/Area] mL/min/{1.73_m2} Normal >60 [facility] Comment on above: Order Comment: No: D o not add to previous drawLABS DRAWN IN SAME HAND PAUSED IV. PT IS TO REMAIN FACE DOWN ONSTOMACH PER RN SO THAT IS THE ONLY PLACE WE CAN DRAW FROM RIGHT NOW. Performed By: #### 2 5508, 01230, 03712, 44520, 70238 #### [facility] [address] [place] [address], [facility] GFR/1.73 sq M.predicted among non-blacks MDRD (S/P/Bld) [Vol rate/Area] mL/min/{1.73_m2} Normal >60 [facility] Comment on above: Order Comment: No: D o not add to previous drawLABS DRAWN IN SAME HAND PAUSED IV. PT IS TO REMAIN FACE DOWN ONSTOMACH PER RN SO THAT IS THE ONLY PLACE WE CAN DRAW FROM RIGHT NOW. Performed By: #### 2 5508, 63904, 29314, 05321, 75409 #### [facility] [address] [place] [address], [facility] Glucose [Mass/Vol] 153 mg/dL High 70-100 [facility] Comment on above: Order Comment: No: D o not add to previous drawLABS DRAWN IN SAME HAND PAUSED IV. PT IS TO REMAIN FACE DOWN ONSTOMACH PER RN SO THAT IS THE ONLY PLACE WE CAN DRAW FROM RIGHT NOW. Performed By: #### 2 5508, 15933, 06312, 26828, 44913 #### [facility] [address] [place] [address], [facility] Potassium [Moles/Vol] 4.7 mmol/L Normal 3.5-5.1 [facility] Comment on above: Order Comment: No: D o not add to previous drawLABS DRAWN IN SAME HAND PAUSED IV. PT IS TO REMAIN FACE DOWN ONSTOMACH PER RN SO THAT IS THE ONLY PLACE WE CAN DRAW FROM RIGHT NOW. Performed By: #### 2 5508, 64284, 38983, 50312, 15120 #### [facility] [address] [place] [id number], [facility] Protein [Mass/Vol] 5.8 g/dL Low 6.0-8.3 [facility] Comment on above: Order Comment: No: D o not add to previous drawLABS DRAWN IN SAME HAND PAUSED IV. PT IS TO REMAIN FACE DOWN ONSTOMACH PER RN SO THAT IS THE ONLY PLACE WE CAN DRAW FROM RIGHT NOW. Performed By: #### 2 5508, 76792, 88962, 88375, 58073 #### [facility] [address] [place] [address], [facility] Sodium [Moles/Vol] 136 mmol/L Normal 136-145 [facility] Comment on above: Order Comment: No: D o not add to previous drawLABS DRAWN IN SAME HAND PAUSED IV. PT IS TO REMAIN FACE DOWN ONSTOMACH PER RN SO THAT IS THE ONLY PLACE WE CAN DRAW FROM RIGHT NOW. Performed By: #### 2 5508, 13673, 84240, 40140, 48705 #### [facility] [address] [place] [address], [facility] Urea nitrogen [Mass/Vol] 28 mg/dL High 7-25 [facility] Comment on above: Order Comment: No: D o not add to previous drawLABS DRAWN IN SAME HAND PAUSED IV. PT IS TO REMAIN FACE DOWN ONSTOMACH PER RN SO THAT IS THE ONLY PLACE WE CAN DRAW FROM RIGHT NOW. Performed By: #### 2 5508, 57518, 05617, 35305, 54620 #### [facility] [address] TACROLIMUSon 08-06-2020 Tacrolimus (Bld) [Mass/Vol] 9.2 ng/mL Normal 5.0-20.0 [facility] Comment on above: Order Comment: Unkno wnLABS DRAWN IN SAME HAND PAUSED IV. PT IS TO REMAIN FACE DOWN ONSTOMACH PER RN SO THAT IS THE ONLY PLACE WE CAN DRAW FROM RIGHT NOW. Result Comment: The [employer] LONG DISTANCE OPERATOR Tacrolimus assay is a delayed one-step immunoassay for the quantitative determination of tacrolimus in human whole blood using the chemiluminescent microparticle immunoassay (CMIA) technology with flexible assay protocols, referred to as Chemiflex. Performed By: #### 2 5508, 75607, 76148, 31867, 35795 #### [facility] [address] [place] [address], [facility] TROPONIN-Ion 08-06-2020 Troponin I.cardiac [Mass/Vol] 42.94 ng/mL Critically high 0.00-0.04 [facility] Comment on above: Result Comment: M-VT EVIOUS CRITICAL RESULT REFERENCE RANGES: 0.00 - 0.04 ng/ml NORMAL 0.05 - 0.50 ng/ml INDETERMINATE > 0.50 ng/ml CONSISTENT WITH AN M.I. Performed By: #### 2 5508, 97399, 36500, 40027, 95867 #### [facility] [address] [place] [address], [facility] Troponin I.cardiac [Mass/Vol] 46.69 ng/mL Critically high 0.00-0.04 [facility] Comment on above: Order Comment: No: D o not add to previous draw Result Comment: M-VT EVIOUS CRITICAL RESULT REFERENCE RANGES: 0.00 - 0.04 ng/ml NORMAL 0.05 - 0.50 ng/ml INDETERMINATE > 0.50 ng/ml CONSISTENT WITH AN M.I. Performed By: #### 3 5200 ####[facility] UFH HEPARIN ASSAYon 08-07-19 UNFRACTIONATED HEPARIN 0.34 IU/mL Normal 0.30-0.70 [facility] Comment on above: Order Comment: No: D o not add to previous draw Result Comment: [place] roxaban and Apixaban will interfere with the anti Xa assay used to monitor UFH and LMWH. Performed By: #### 6 1405 #### [facility] [address] [facility] [address] CHLORIDE URon 08-05-2020 Chloride [Moles/Vol] 26.0 mmol/L Normal [facility] Comment on above: Order Comment: Yes: Add to Previous draw if able Result Comment: Ther e are no established reference values for random urine specimens Performed By: #### 2 5508, 28763, 86660, 29194, 93282 #### [facility] [address] [facility]. [address] COMP METABOLIC PANELon 08-05 Albumin [Mass/Vol] 3.0 g/dL Low 3.5-5.7 [facility] Comment on above: Order Comment: Yes: Add to Previous draw if able Performed By: #### 2 5508, 65450, 97245, 39369, 11371 #### [facility] [address] [facility] [address] ALKALINE PHOSPH 78 IU/L Normal 34-104 [facility] Comment on above: Order Comment: Yes: Add to Previous draw if able Performed By: #### 2 5508, 30941, 68345, 39653, 80788 #### [facility] [address] [facility] [place] [place] [address], [facility] ALT [Catalytic activity/Vol] 35 U/L Normal 7-52 [facility] Comment on above: Order Comment: Yes: Add to Previous draw if able Performed By: #### 2 5508, 15233, 47332, 56672, 92139 #### [facility] [address] [place] [address], [place] AST [Catalytic activity/Vol] 54 U/L High 13-39 [facility] Comment on above: Order Comment: Yes: Add to Previous draw if able Performed By: #### 2 5508, 60315, 86511, 28792, 83393 #### [facility] [address] [place] [address], [place] Bilirubin [Mass/Vol] 1.0 mg/dL Normal 0.3-1.0 [facility] Comment on above: Order Comment: Yes: Add to Previous draw if able Performed By: #### 2 5508, 80570, 82101, 33315, 81466 #### [facility] [address] [place] [address], [place] Calcium [Mass/Vol] 8.2 mg/dL Low 8.6-10.3 [facility] Comment on above: Order Comment: Yes: Add to Previous draw if able Performed By: #### 2 5508, 66693, 70307, 24268, 66837 #### [facility] [address] [place] [address], [place] Chloride [Moles/Vol] 105 mmol/L Normal 98-107 [facility] Comment on above: Order Comment: Yes: Add to Previous draw if able Performed By: #### 2 5508, 65711, 61359, 66560, 46238 #### [facility] [address] [place] [address], [place] CO2 [Moles/Vol] 19 mmol/L Low 21-31 [facility] Comment on above: Order Comment: Yes: Add to Previous draw if able Performed By: #### 2 5508, 01738, 21416, 21329, 67832 #### [facility] [address] [place] [address], [place] Creatinine [Mass/Vol] 0.89 mg/dL Normal 0.70-1.30 [facility] Comment on above: Order Comment: Yes: Add to Previous draw if able Performed By: #### 2 5508, 26452, 22331, 97870, 77451 #### [facility] [address] [place] [address], [place] GFR/1.73 sq M.predicted among blacks MDRD (S/P/Bld) [Vol rate/Area] mL/min/{1.73_m2} Normal >60 [facility] Comment on above: Order Comment: Yes: Add to Previous draw if able Performed By: #### 2 5508, 33340, 73275, 94730, 96793 #### [facility] [address] [place] [address], [place] GFR/1.73 sq M.predicted among non-blacks MDRD (S/P/Bld) [Vol rate/Area] mL/min/{1.73_m2} Normal >60 [facility] Comment on above: Order Comment: Yes: Add to Previous draw if able Performed By: #### 2 5508, 72197, 43936, 20479, 92847 #### [facility] [address] [place] [address], [place] Glucose [Mass/Vol] 174 mg/dL High 70-100 [facility] Comment on above: Order Comment: Yes: Add to Previous draw if able Performed By: #### 2 5508, 49320, 09829, 92666, 62469 #### [facility] [address] [place] [address], [place] Potassium [Moles/Vol] 4.9 mmol/L Normal 3.5-5.1 [facility] Comment on above: Order Comment: Yes: Add to Previous draw if able Performed By: #### 2 5508, 79121, 95590, 73989, 39157 #### [facility] [address] [place] [address], [place] Protein [Mass/Vol] 5.5 g/dL Low 6.0-8.3 [facility] Comment on above: Order Comment: Yes: Add to Previous draw if able Performed By: #### 2 5508, 29014, 96315, 15534, 45205 #### [facility] [address] [place] [address], [facility] Sodium [Moles/Vol] 136 mmol/L Normal 136-145 [facility] Comment on above: Order Comment: Yes: Add to Previous draw if able Performed By: #### 2 5508, 22610, 46267, 98738, 09798 #### [facility] [address] [place] [address], [place] Urea nitrogen [Mass/Vol] 35 mg/dL High 7-25 [facility] Comment on above: Order Comment: Yes: Add to Previous draw if able Performed By: #### 2 5508, 56297, 54110, 82955, 93096 #### [facility] [address] [place] [address], [facility] LIVER BATTERYon 08-05-2020 Albumin [Mass/Vol] 3.2 g/dL Low 3.5-5.7 [facility] Comment on above: Performed By: #### 2 5508, 87164, 83259, 38120, 52589 #### [facility] [address] [place] [address], [place] ALKALINE PHOSPH 84 IU/L Normal 34-104 [facility] Comment on above: Performed By: #### 2 5508, 05296, 99219, 66245, 97013 #### [facility] [address] [place] [address], [place] ALT [Catalytic activity/Vol] 40 U/L Normal 7-52 [facility] Comment on above: Performed By: #### 2 5508, 15766, 79193, 36731, 70313 #### [facility] [address] [place] [address], [place] AST [Catalytic activity/Vol] 36 U/L Normal 13-39 [facility] Comment on above: Performed By: #### 2 5508, 11587, 08314, 83869, 07908 #### [facility] [address] [place] [address], [facility] Bilirubin [Mass/Vol] 0.9 mg/dL Normal 0.3-1.0 [facility] Comment on above: Performed By: #### 2 5508, 55041, 76374, 66067, 20621 #### [facility] [address] [place] [address], [facility] Bilirubin.direct [Mass/Vol] 0.3 mg/dL High 0.0-0.2 [facility] Comment on above: Performed By: #### 2 5508, 79835, 20195, 70932, 96813 #### [facility] [address] [place] [address], [facility] Protein [Mass/Vol] 5.9 g/dL Low 6.0-8.3 [facility] Comment on above: Performed By: #### 2 5508, 76453, 53924, 68749, 84663 #### [facility] [address] [facility] [address] PORTABLE CHEST 1 VIEWon 07-17 PORTABLE CHEST 1 VIEW [facility] Department of Radiology [address] [place] [id number] == Patient Name: VISHAL DUKE : 1960 Sex: M Age: Race: White Pt. Location: [id number] Patient Status: I Ordered Date: 08/05/2020 1:35:00 [...] reports Electronically signed: Mauricio Koo. Transcribed by: [email or web address], User Resident: ELADIA CABRERA Electronically Signed by: MAURICIO KOO @ 08/05/2020 02:08 AM I personally read this/these film(s) with this resident Normal [facility] Comment on above: Order Comment: Yes: Add to Previous draw if able POTASSIUM URon 08-05-2020 Potassium [Moles/Vol] 61.0 mmol/L Normal [facility] Comment on above: Order Comment: Yes: Add to Previous draw if able Result Comment: Ther e are no established reference values for random urine specimens Performed By: #### 2 5508, 27199, 32997, 10763, 01880 #### [facility] [address] [facility] [address], [facility] PROCALCITONINon 08-05-2020 PROCALCITONIN 0.54 ng/mL High 0.00-0.10 [facility] Comment on above: Order Comment: [...] initial PCT<0.5ng/mL Performed By: #### 2 5508, 15232, 05413, 26232, 81733 #### [facility] [address] [facility] [place] [address], [facility] SODIUM URINE RANDOMon 2020 Sodium (U) [Moles/Vol] 54 mmol/L Normal [facility] Comment on above: Order Comment: Yes: Add to Previous draw if able Result Comment: Ther e are no established reference values for random urine specimens Performed By: #### 2 5508, 01006, 18648, 93406, 44222 #### [facility] [address] [place] [address], [facility] TACROLIMUSon 08-05-2020 Tacrolimus (Bld) [Mass/Vol] 11.2 ng/mL Normal 5.0-20.0 [facility] Comment on above: Order Comment: Unkno wn Result Comment: The [employer] Tacrolimus assay is a delayed one-step immunoassay for the quantitative determination of tacrolimus in human whole blood using the chemiluminescent microparticle immunoassay (CMIA) technology with flexible assay protocols, referred to as Chemiflex. Performed By: #### 2 5508, 81854, 28903, 82131, 18356 #### [facility] [address] [place] [address], [facility] TROPONIN-Ion 08-05-2020 Troponin I.cardiac [Mass/Vol] 39.61 ng/mL Critically high 0.00-0.04 [facility] Comment on above: Order Comment: Yes: Add to Previous draw if able Result Comment: M-VT EVIOUS CRITICAL RESULT REFERENCE RANGES: 0.00 - 0.04 ng/ml NORMAL 0.05 - 0.50 ng/ml INDETERMINATE > 0.50 ng/ml CONSISTENT WITH AN M.I. Performed By: #### 2 5508, 92522, 00728, 09442, 66486 #### [facility] [address] [place] [address], [facility] Troponin I.cardiac [Mass/Vol] 36.67 ng/mL Critically high 0.00-0.04 [facility] Comment on above: Order Comment: No: D o not add to previous draw Result Comment: M-VT EVIOUS CRITICAL RESULT REFERENCE RANGES: 0.00 - 0.04 ng/ml NORMAL 0.05 - 0.50 ng/ml INDETERMINATE > 0.50 ng/ml CONSISTENT WITH AN M.I. Performed By: #### 2 5508, 99990, 25678, 28523, 28049 #### [facility] [address] [place] [address], [facility] Troponin I.cardiac [Mass/Vol] 2.03 ng/mL Critically high 0.00-0.04 [facility] Comment on above: Order Comment: Yes: Add to Previous draw if able Result Comment: M-TR OPONIN INITIAL CRITICAL HIGH; RESPUN AND RETESTED M-CRITICAL RESULT(S) REVIEWED, CALLED TO AND READ BACK BY ROSA M COTA RN AT 0902 REFERENCE RANGES: 0.00 - 0.04 ng/ml NORMAL 0.05 - 0.50 ng/ml INDETERMINATE > 0.50 ng/ml CONSISTENT WITH AN M.I. Performed By: #### 2 5508, 63989, 29328, 02105, 06618 #### [facility] [address] Troponin I.cardiac [Mass/Vol] 0.03 ng/mL Normal 0.00-0.04 [facility] Comment on above: Order Comment: Yes: Add to Previous draw if able Result Comment: REFE RENCE RANGES: 0.00 - 0.04 ng/ml NORMAL 0.05 - 0.50 ng/ml INDETERMINATE > 0.50 ng/ml CONSISTENT WITH AN M.I. Performed By: #### 2 5508, 20733, 88850, 29778, 81622 #### [facility] [address] [facility] UFH HEPARIN ASSAYon 08-06-19 UNFRACTIONATED HEPARIN 0.37 IU/mL Normal 0.30-0.70 [facility] Comment on above: Result Comment: [place] roxaban and Apixaban will interfere with the anti Xa assay used to monitor UFH and LMWH. Performed By: #### 3 0477 ####[facility] [address] UNFRACTIONATED HEPARIN 0.17 IU/mL Low 0.30-0.70 [facility] Comment on above: Result Comment: [place] roxaban and Apixaban will interfere with the anti Xa assay used to monitor UFH and LMWH. Performed By: #### 6 1405 #### [facility] [address] [place] [address], [facility] COMP METABOLIC PANELon 08-04 Albumin [Mass/Vol] 3.1 g/dL Low 3.5-5.7 [facility] Comment on above: Order Comment: Yes: Add to Previous draw if able Performed By: #### 2 3478, 00914, 37732, 77535, 73975 #### [facility] [address] [place] [address], [facility] ALKALINE PHOSPH 86 IU/L Normal 34-104 [facility] Comment on above: Order Comment: Yes: Add to Previous draw if able Performed By: #### 2 5508, 77974, 92564, 54831, 81178 #### [facility] [address] [place] [address], [place] ALT [Catalytic activity/Vol] 47 U/L Normal 7-52 [facility] Comment on above: Order Comment: Yes: Add to Previous draw if able Performed By: #### 2 5508, 17865, 75633, 15579, 19700 #### [facility] [address] [place] [address], [place] AST [Catalytic activity/Vol] 45 U/L High 13-39 [facility] Comment on above: Order Comment: Yes: Add to Previous draw if able Performed By: #### 2 5508, 45209, 71092, 75902, 82926 #### [facility] [address] [place] [address], [place] Bilirubin [Mass/Vol] 0.5 mg/dL Normal 0.3-1.0 [facility] Comment on above: Order Comment: Yes: Add to Previous draw if able Performed By: #### 2 5508, 16980, 59157, 90234, 74168 #### [facility] [address] [place] [address], [place] Calcium [Mass/Vol] 8.4 mg/dL Low 8.6-10.3 [facility] Comment on above: Order Comment: Yes: Add to Previous draw if able Performed By: #### 2 5508, 36214, 42003, 29757, 00671 #### [facility] [address] [place] [address], [place] Chloride [Moles/Vol] 102 mmol/L Normal 98-107 [facility] Comment on above: Order Comment: Yes: Add to Previous draw if able Performed By: #### 2 5508, 87737, 24848, 98490, 68605 #### [facility] [address] [place] [address], [place] CO2 [Moles/Vol] 24 mmol/L Normal 21-31 [facility] Comment on above: Order Comment: Yes: Add to Previous draw if able Performed By: #### 2 5508, 30476, 48934, 48124, 22380 #### [facility] [address] [place] [address], [place] Creatinine [Mass/Vol] 1.04 mg/dL Normal 0.70-1.30 [facility] Comment on above: Order Comment: Yes: Add to Previous draw if able Performed By: #### 2 5508, 73786, 01435, 68937, 17822 #### [facility] [address] [place] [address], [place] GFR/1.73 sq M.predicted among blacks MDRD (S/P/Bld) [Vol rate/Area] mL/min/{1.73_m2} Normal >60 [facility] Comment on above: Order Comment: Yes: Add to Previous draw if able Performed By: #### 2 5508, 83331, 06375, 86844, 84889 #### [facility] [address] [place] [address], [place] GFR/1.73 sq M.predicted among non-blacks MDRD (S/P/Bld) [Vol rate/Area] mL/min/{1.73_m2} Normal >60 [facility] Comment on above: Order Comment: Yes: Add to Previous draw if able Performed By: #### 2 5508, 31202, 88599, 50509, 02341 #### [facility] [address] [place] [address], [place] Glucose [Mass/Vol] 196 mg/dL High 70-100 [facility] Comment on above: Order Comment: Yes: Add to Previous draw if able Performed By: #### 2 5508, 19510, 04891, 14668, 22830 #### [facility] [address] [place] [address], [place] Potassium [Moles/Vol] 4.6 mmol/L Normal 3.5-5.1 [facility] Comment on above: Order Comment: Yes: Add to Previous draw if able Performed By: #### 2 5508, 63791, 34956, 93528, 46335 #### [facility] [address] [place] [address], [place] Protein [Mass/Vol] 5.8 g/dL Low 6.0-8.3 [facility] Comment on above: Order Comment: Yes: Add to Previous draw if able Performed By: #### 2 5508, 07605, 21478, 68229, 48108 #### [facility] [address] [place] [address], [place] Sodium [Moles/Vol] 135 mmol/L Low 136-145 [facility] Comment on above: Order Comment: Yes: Add to Previous draw if able Performed By: #### 2 5508, 10638, 77355, 07304, 55751 #### [facility] [address] [place] [address], [place] Urea nitrogen [Mass/Vol] 38 mg/dL High 7-25 [facility] Comment on above: Order Comment: Yes: Add to Previous draw if able Performed By: #### 2 5508, 88991, 39369, 55986, 63953 #### [facility] [address] [place] [address], [place] CPKon 08-04-2020 CK [Catalytic activity/Vol] 80 U/L Normal 30-223 [facility] Comment on above: Performed By: #### 2 5508, 66755, 57687, 96519, 19740 #### [facility] [address] [place] [address], [place] LDH BLOODon 08-04-2020 LDH 569 Units/L High 140-271 [facility] Comment on above: Performed By: #### 2 5508, 67518, 36105, 53569, 74822 #### [facility] [address] [place] [address], [facility] MAGNESIUM BLOODon 08-04-2020 Magnesium [Mass/Vol] 2.3 mg/dL Normal 1.9-2.7 [facility] Comment on above: Performed By: #### 2 5508, 58295, 02263, 64885, 61435 #### [facility] [address] [facility] [address] TACROLIMUSon 08-04-2020 Tacrolimus (Bld) [Mass/Vol] 17.4 ng/mL Normal 5.0-20.0 [facility] Comment on above: Order Comment: Yes: Add to Previous draw if able Result Comment: The [employer] Tacrolimus assay is a delayed one-step immunoassay for the quantitative determination of tacrolimus in human whole blood using the chemiluminescent microparticle immunoassay (CMIA) technology with flexible assay protocols, referred to as Chemiflex. Performed By: #### 2 5508, 01683, 31944, 92311, 88389 #### [facility] [address] TROPONIN-Ion 08-04-2020 Troponin I.cardiac [Mass/Vol] 0.01 ng/mL Normal 0.00-0.04 [facility] Comment on above: Result Comment: REFE RENCE RANGES: 0.00 - 0.04 ng/ml NORMAL 0.05 - 0.50 ng/ml INDETERMINATE > 0.50 ng/ml CONSISTENT WITH AN M.I. Performed By: #### 2 5508, 06298, 82015, 53754, 54975 #### [facility] [address] *SARS-CoV-2 COVID-19on 08-03 SARS-CoV-2 (COVID-19) RNA ADELINE+probe Ql (Unsp spec) Detected Critically abnormal Not Detected [facility] Comment on above: Result Comment: Call ed Lara Reid on 08-03 at 1020. Performed By: #### 2 5508, 76742, 16150, 78461, 28107 #### [facility] [address] [place] [address], [place] BASIC METABOLIC PANELon 07-16 Calcium [Mass/Vol] 8.4 mg/dL Low 8.6-10.3 [facility] Comment on above: Order Comment: No: D o not add to previous draw Pt in bath room askme to come back Performed By: #### 3 5200 #### [facility] [address] [place] [address], [facility] Chloride [Moles/Vol] 97 mmol/L Low 98-107 [facility] Comment on above: Order Comment: No: D o not add to previous draw Pt in bath room askme to come back Performed By: #### 3 5200 #### [facility] [address] [place] [address], [place] CO2 [Moles/Vol] 22 mmol/L Normal 21-31 The [facility] Comment on above: Order Comment: No: D o not add to previous draw Pt in bath room askme to come back Performed By: #### 3 5200 #### [facility] [address] [place] [address], [place] Creatinine [Mass/Vol] 0.90 mg/dL Normal 0.70-1.30 [facility] Comment on above: Order Comment: No: D o not add to previous draw Pt in bath room askme to come back Performed By: #### 3 5200 #### [facility] [address] [place] [address], [place] GFR/1.73 sq M.predicted among blacks MDRD (S/P/Bld) [Vol rate/Area] mL/min/{1.73_m2} Normal >60 [facility] Comment on above: Order Comment: No: D o not add to previous draw Pt in bath room askme to come back Performed By: #### 3 5200 #### [facility] [address] [place] [address], [facility] GFR/1.73 sq M.predicted among non-blacks MDRD (S/P/Bld) [Vol rate/Area] mL/min/{1.73_m2} Normal >60 [facility] Comment on above: Order Comment: No: D o not add to previous draw Pt in bath room askme to come back Performed By: #### 3 5200 #### [facility] [address] [place] [address], [facility] Glucose [Mass/Vol] 167 mg/dL High 70-100 [facility] Comment on above: Order Comment: No: D o not add to previous draw Pt in bath room askme to come back Performed By: #### 3 5200 #### [facility] [address] [place] [address], [facility] Potassium [Moles/Vol] 4.4 mmol/L Normal 3.5-5.1 [facility] Comment on above: Order Comment: No: D o not add to previous draw Pt in bath room askme to come back Performed By: #### 3 5200 #### [facility] [address] [place] [address], [facility] Sodium [Moles/Vol] 131 mmol/L Low 136-145 [facility] Comment on above: Order Comment: No: D o not add to previous draw Pt in bath room askme to come back Performed By: #### 3 5200 #### [facility] [address] [place] [address], [place] Urea nitrogen [Mass/Vol] 22 mg/dL Normal 7-25 [facility] Comment on above: Order Comment: No: D o not add to previous draw Pt in bath room askme to come back Performed By: #### 3 5200 #### [facility] [address] [place] [address], [facility] CBC W/DIFFon 08-03-2020 ABS IMM GRANS 0.1 10*3/uL Normal 0.0-0.2 [facility] Comment on above: Order Comment: No: D o not add to previous draw Performed By: #### 6 1405 #### [facility] [address] [place] [address], [facility] ABS NEUTROPHILS 4.8 10*3/uL Normal 1.6-7.6 [facility] Comment on above: Order Comment: No: D o not add to previous draw Performed By: #### 6 1405 #### [facility] [address] [place] [address], [facility] Basophils (Bld) [#/Vol] 0.0 10*3/uL Normal 0.0-0.2 [facility] Comment on above: Order Comment: No: D o not add to previous draw Performed By: #### 6 1405 #### [facility] [address] [place] [address], [facility] Basophils/100 WBC (Bld) 0.4 % Normal 0.0-1.0 [facility] Comment on above: Order Comment: No: D o not add to previous draw Performed By: #### 6 1405 #### [facility] [address] [place] [address], [facility] Eosinophils (Bld) [#/Vol] 0.0 10*3/uL Normal 0.0-0.5 [facility] Comment on above: Order Comment: No: D o not add to previous draw Performed By: #### 6 1405 #### [facility] [address] [place] [address], [facility] Eosinophils/100 WBC (Bld) 0.0 % Normal 0.0-6.0 [facility] Comment on above: Order Comment: No: D o not add to previous draw Performed By: #### 6 1405 #### [facility] [address] [place] [address], [facility] Erythrocyte distribution width (RBC) [Ratio] 13.6 % Normal 11.5-15.0 [facility] Comment on above: Order Comment: No: D o not add to previous draw Performed By: #### 6 1405 #### [facility] [address] [place] [address], [facility] Hematocrit (Bld) [Volume fraction] 45.6 % Normal 39.0-50.0 [facility] Comment on above: Order Comment: No: D o not add to previous draw Performed By: #### 6 1405 #### [facility] [address] [place] [address], [facility] Hemoglobin (Bld) [Mass/Vol] 15.9 g/dL Normal 13.0-17.0 [facility] Comment on above: Order Comment: No: D o not add to previous draw Performed By: #### 6 1405 #### [facility] [address] [place] [address], [facility] IMMATURE GRANS 0.9 % Normal 0.0-1.0 [facility] Comment on above: Order Comment: No: D o not add to previous draw Performed By: #### 6 1405 #### [facility] [address] [place] [address], [facility] Lymphocytes (Bld) [#/Vol] 0.4 10*3/uL Low 1.2-4.0 [facility] Comment on above: Order Comment: No: D o not add to previous draw Performed By: #### 6 1405 #### [facility] [address] [place] [id number], [facility] Lymphocytes/100 WBC (Bld) 7.1 % Low 20.0-45.0 [facility] Comment on above: Order Comment: No: D o not add to previous draw Performed By: #### 6 1405 #### [facility] [address] [place] [address], [facility] MCH (RBC) [Entitic mass] 29.5 pg Normal 27.0-33.0 [facility] Comment on above: Order Comment: No: D o not add to previous draw Performed By: #### 6 1405 #### [facility] [address] [place] [address], [facility] MCHC (RBC) [Mass/Vol] 34.9 g/dL Normal 32.0-35.0 [facility] Comment on above: Order Comment: No: D o not add to previous draw Performed By: #### 6 1405 #### [facility] [address] [facility] [place] [place] [address], [facility] MCV (RBC) [Entitic vol] 84.6 fL Normal 82.0-98.0 [facility] Comment on above: Order Comment: No: D o not add to previous draw Performed By: #### 6 1405 #### [facility] [address] [facility] [place] [place] [address], [facility] Monocytes (Bld) [#/Vol] 0.2 10*3/uL Normal 0.1-1.0 [facility] Comment on above: Order Comment: No: D o not add to previous draw Performed By: #### 6 1405 #### [facility] [address] [place] [address], [facility] MONOS 4.2 % Low 5.0-12.0 [facility] Comment on above: Order Comment: No: D o not add to previous draw Performed By: #### 6 1405 #### [facility] [address] [facility] [address], [facility] Neutrophils/100 WBC (Bld) 87.4 % High 40.0-72.0 [facility] Comment on above: Order Comment: No: D o not add to previous draw Performed By: #### 6 1405 #### [facility] [address] Nucleated RBC/100 WBC (Bld) [Ratio] 0 % Normal 0-0 [facility] Comment on above: Order Comment: No: D o not add to previous draw Performed By: #### 6 1405 #### [facility] [address] [place] [address], [facility] PLAT CNT 286 10*3/uL Normal 150-400 [facility] Comment on above: Order Comment: No: D o not add to previous draw Performed By: #### 6 1405 #### [facility] [address] [facility] [address], [facility] RBC (Bld) [#/Vol] 5.39 10*6/uL Normal 4.20-5.70 [facility] Comment on above: Order Comment: No: D o not add to previous draw Performed By: #### 6 1405 #### [facility] [address] [place] [address], [facility] WBC (Bld) [#/Vol] 5.47 10*3/uL Normal 4.00-10.60 [facility] Comment on above: Order Comment: No: D o not add to previous draw Performed By: #### 6 1405 #### [facility] [address] [facility]. [address] CPKon 08-03-2020 CK [Catalytic activity/Vol] 168 U/L Normal 30-223 [facility] Comment on above: Order Comment: No: D o not add to previous draw Pt in bath room askme to come back Performed By: #### 3 5200 #### [facility] [address] [facility]. [address] D DIMER TESTon 08-03-2020 D-DIMER TEST 5.09 mcg/mL FEU High 0.27-0.49 [facility] Comment on above: Order Comment: No: [...] AND CONFIRMED Performed By: #### 5 3629 ####[facility] FERRITINon 08-03-2020 Ferritin [Mass/Vol] 1079 ng/mL High 24-336 [facility] Comment on above: Order Comment: No: D o not add to previous draw Pt in bath room askme to come back Performed By: #### 3 5200 #### [facility] [address] [facility] [place] [place] [address], [facility] LDH BLOODon 08-03-2020 LDH 623 Units/L High 140-271 [facility] Comment on above: Order Comment: No: D o not add to previous draw Pt in bath room askme to come back Performed By: #### 3 5200 #### [facility] [address] [place] [address], [facility] LIVER BATTERYon 08-03-2020 Albumin [Mass/Vol] 3.6 g/dL Normal 3.5-5.7 [facility] Comment on above: Order Comment: Yes: Add to Previous draw if able Performed By: #### 2 5508, 39770, 60599, 05047, 29377 #### [facility] [address] [place] [address], [facility] ALKALINE PHOSPH 91 IU/L Normal 34-104 [facility] Comment on above: Order Comment: Yes: Add to Previous draw if able Performed By: #### 2 5508, 16998, 50847, 03237, 57264 #### [facility] [address] [facility] [place] [place] [address], [facility] ALT [Catalytic activity/Vol] 34 U/L Normal 7-52 [facility] Comment on above: Order Comment: Yes: Add to Previous draw if able Performed By: #### 2 5508, 03943, 44629, 72243, 33739 #### [facility] [address] [place] [address], [place] AST [Catalytic activity/Vol] 40 U/L High 13-39 [facility] Comment on above: Order Comment: Yes: Add to Previous draw if able Performed By: #### 2 5508, 37025, 94107, 00821, 02948 #### [facility] [address] [place] [address], [place] Bilirubin [Mass/Vol] 0.7 mg/dL Normal 0.3-1.0 [facility] Comment on above: Order Comment: Yes: Add to Previous draw if able Performed By: #### 2 5508, 89965, 96294, 00479, 72909 #### [facility] [address] [place] [address], [place] Bilirubin.direct [Mass/Vol] 0.1 mg/dL Normal 0.0-0.2 [facility] Comment on above: Order Comment: Yes: Add to Previous draw if able Performed By: #### 2 5508, 71443, 29992, 72681, 79997 #### [facility] [address] [place] [address], [place] Protein [Mass/Vol] 6.3 g/dL Normal 6.0-8.3 [facility] Comment on above: Order Comment: Yes: Add to Previous draw if able Performed By: #### 2 5508, 08719, 61342, 22409, 10256 #### [facility] [address] [place] [address], [place] MAGNESIUM BLOODon 08-03-2020 Magnesium [Mass/Vol] 2.3 mg/dL Normal 1.9-2.7 [facility] Comment on above: Order Comment: No: D o not add to previous draw Pt in bath room askme to come back Performed By: #### 3 5200 #### [facility] [address] [place] [address], [place] PHOSPHORUS BLOODon Phosphate [Mass/Vol] 3.6 mg/dL Normal 2.5-5.0 [facility] Comment on above: Order Comment: No: D o not add to previous draw Pt in bath room askme to come back Performed By: #### 3 5200 #### [address] PORTABLE CHEST 1 VIEWon 07-16 PORTABLE CHEST 1 VIEW [facility] Department of Radiology [address] [place] [id number] == Patient Name: VISHAL DUKE : 1960 Sex: M Age: Race: White Pt. Location: [id number] Patient Status: I Ordered Date: 08/03/2020 8:00:00 [...] pneumonia. Electronically signed: Dariela Vincent. Transcribed by: [email or web address], User Resident: Electronically Signed by: DARIELA VINCENT @ 08/03/2020 07:52 AM Normal [facility] Comment on above: Order Comment: No: D o not add to previous draw CV'D BY IMM LAB AT 1240 PROCALCITONINon 08-03-2020 PROCALCITONIN 0.31 ng/mL High 0.00-0.10 [facility] Comment on above: Order Comment: No: [...] and initial PCT<0.5ng/mL Performed By: #### 2 6148, 94221, 15693, 63906, 79610 #### [facility] [address] [place] [address], [facility] TACROLIMUSon 08-03-2020 Tacrolimus (Bld) [Mass/Vol] 24.9 ng/mL High 5.0-20.0 [facility] Comment on above: Order Comment: Yes: Add to Previous draw if able Result Comment: The [employer]PER[employer] Tacrolimus assay is a delayed one-step immunoassay for the quantitative determination of tacrolimus in human whole blood using the chemiluminescent microparticle immunoassay (CMIA) technology with flexible assay protocols, referred to as Chemiflex. Performed By: #### 2 5508, 60447, 72315, 02484, 62593 #### [facility] [address] TROPONIN-Ion 08-03-2020 Troponin I.cardiac [Mass/Vol] 0.01 ng/mL Normal 0.00-0.04 [facility] Comment on above: Order Comment: No: D o not add to previous draw Pt in bath room askme to come back Result Comment: REFE RENCE RANGES: 0.00 - 0.04 ng/ml NORMAL 0.05 - 0.50 ng/ml INDETERMINATE > 0.50 ng/ml CONSISTENT WITH AN M.I. Performed By: #### 3 5200 #### [facility] [address] [facility] [place] [place] [address], [facility] URINALYSIS REFLEXon 08-04-19 21 Appearance (U) CLEAR Normal CLEAR [facility] Comment on above: Order Comment: No: D o not add to previous draw CV'D BY IMM LAB AT 1240 Performed By: #### 6 1405 #### [facility] [address] [facility] [address], [facility] Bilirubin Ql (U) Negative Normal NEGATIVE [facility] Comment on above: Order Comment: No: D o not add to previous draw CV'D BY IMM LAB AT 1240 Performed By: #### 6 1405 #### [facility] [address] [facility] [address], [facility] Color (U) YELLOW Normal YELLOW [facility] Comment on above: Order Comment: No: D o not add to previous draw CV'D BY IMM [facility] AT 1240 Performed By: #### 6 1405 #### [facility] [address] [place] [address], [place] EPIS NONE SEEN Normal FEW,OCC,NONE SEEN [facility] Comment on above: Order Comment: No: D o not add to previous draw CV'D BY IMM [facility] AT 1240 Performed By: #### 6 1405 #### [facility] [address] [place] [address], [place] Glucose Ql (U) Negative Normal NEGATIVE [facility] Comment on above: Order Comment: No: D o not add to previous draw CV'D BY IMM [facility] AT 1240 Performed By: #### 6 1405 #### [facility] [address] [place] [address], [place] Hemoglobin Ql (U) TRACE, RESULTS CHECKED Abnormal NEGATI VE [facility] Comment on above: Order Comment: No: D o not add to previous draw CV'D BY IMM LAB AT 1240 Performed By: #### 6 1405 #### [facility] [address] [place] [address], [place] KETONE Negative Normal NEGATIVE [facility] Comment on above: Order Comment: No: D o not add to previous draw CV'D BY IMM LAB AT 1240 Performed By: #### 6 1405 #### [facility] [address] [place] [address], [place] LEUK MARIA A Negative Normal NEGATIVE [facility] Comment on above: Order Comment: No: D o not add to previous draw CV'D BY IMM LAB AT 1240 Performed By: #### 6 1405 #### [facility] [address] [place] [address], [place] Nitrite Ql (U) Negative Normal NEGATIVE [facility] Comment on above: Order Comment: No: D o not add to previous draw CV'D BY IMM [facility] AT 1240 Performed By: #### 6 1405 #### [facility] [address] [place] [address], [place] pH (U) 6.0 [pH] Normal 5.0-8.0 [facility] Comment on above: Order Comment: No: D o not add to previous draw CV'D BY IMM LAB AT 1240 Performed By: #### 6 1405 #### [facility] [address] [place] [address], [facility] Protein Ql (U) Negative Normal NEGATIVE [facility] Comment on above: Order Comment: No: D o not add to previous draw CV'D BY IMM LAB AT 1240 Performed By: #### 6 1405 #### [facility] [address] [place] [address], [facility] RBC 3-5 Abnormal NONE SEEN [facility] Comment on above: Order Comment: No: D o not add to previous draw CV'D BY IMM [facility] AT [facility] Performed By: #### 6 1405 #### [facility] [address] [place] [address], [facility] SPEC GRAV 1.017 Normal 1.015-1.020 [facility] Comment on above: Order Comment: No: D o not add to previous draw CV'D BY IMM LAB AT 1240 Performed By: #### 6 1405 #### [facility] [address] [place] [address], [facility] WBC UA 0-2 Abnormal NONE SEEN [facility] Comment on above: Order Comment: No: D o not add to previous draw CV'D BY IMM [facility] AT [facility] Performed By: #### 6 1405 #### [facility] [address] [place] [address], [facility] Vital Signs Date Time Vital Sign Value Performing Clinician Faci litisamar 01-17-2022 11:53-0400 Blood Pressure Location Reji BROWER [facility] 01-17-2022 11:53-0400 Diastolic blood pressure 81 mm[Hg] Reji BROWER [facility] 01-17-2022 11:53-0400 Heart rate 63 /min Reji BROWER [facility] 01-17-2022 11:53-0400 Respiratory rate 18 /min Reji BROWER [facility] 01-17-2022 11:53-0400 Systolic blood pressure 129 mm[Hg] Reji BROWER [facility] 04-23-2021 17:40-0500 Diastolic blood pressure 70 mm[Hg] Rosa M Gonzales Work Phone: [facility] 250 DO Work Phone: 04-23-2021 17:40-0500 Systolic blood pressure 138 mm[Hg] Rosa M Gonzales Work Phone: [facility] 250 DO Work Phone: 04-23-2021 15:22-0500 Body height 180.34 cm Rosa M Gonzales Work Phone: [facility] 250 DO Work Phone: 04-23-2021 15:22-0500 Body mass index (BMI) [Ratio] 29.57 kg/m2 Rosa M Gonzales Work Phone: [facility] 250 DO Work Phone: 04-23-2021 15:22-0500 Body surface area Derived from formula 2.16 m2 Rosa M Gonzales Work Phone: [facility] 250 DO Work Phone: 04-23-2021 15:22-0500 Body weight 96.16 kg Rosa M Gonzales Work Phone: [facility] 250 DO Work Phone: 04-23-2021 15:22-0500 Diastolic blood pressure 77 mm[Hg] Rosa M Gonzales Work Phone: [facility] 250 DO Work Phone: 04-23-2021 15:22-0500 Heart rate 61 /min Rosa M Farrell Janet Work Phone: [facility] 250 DO Work Phone: 04-23-2021 15:22-0500 Systolic blood pressure 142 mm[Hg] Rosa M Farrell Janet Work Phone: [facility] 250 DO Work Phone: Encounters Encounter Date Encounter Type Care Provider Facility Start: 01-29-2024 ambulatory Reji La ty:CASS Doran Start: 12-25-2023 ambulatory Xochilt Graham Facility:[facility] Start: 11-23-2023 End: 11-23-2023 ambulatory ROSA M GONZALES Not Available Start: 11-20-2023 End: 11-20-2023 ambulatory [facility] Start: 11-07-2023 End: 11-07-2023 ambulatory TEAGAN [facility] Start: 10-30-2023 End: 10-30-2023 ambulatory ALICIA FISHMAN Not Available Start: 10-06-2023 End: 10-06-2023 [facility] Start: 07-27-2023 End: 07-27-2023 ambulatory ROSA M GONZALES Not Available Start: 06-05-2023 End: 06-05-2023 ambulatory AB [facility] Start: 05-29-2023 Clinisync Result Encounter Generic External Data Provider [facility] External Department Unsolicited Start: 05-29-2023 Clinisync Result Encounter Generic External Data Provider [facility] External Department Unsolicited Start: 05-18-2023 End: 05-[facility]: 05-01-2023 End: 05-01-2023 ambulatory ALICIA FISHMAN Not Available Start: 04-26-2023 End: 04-26-2023 ambulatory TEAGAN VILLANUEVA [facility] Start: 03-28-2023 ambulatory PETEY LEATHA [facility] Start: 02-09-2023 End: 02-09-[address] [facility] Start: 02-02-2023 ambulatory Schmidt Talal Gertrudiskennedi Facility:[facility] Start: 01-24-2023 End: 01-25-2023 Evaluation and management of inpatient OBI [facility] Start: 01-06-2023 End: 01-06-[address] [facility] Start: 12-22-2022 End: 12-22-[address] [facility] Start: 12-05-2022 End: 12-05-2022 ambulatory AB [facility] Start: 08-18-2022 End: 08-19-[address] DOCTOR MEYER Facility:[facility] Start: 07-19-2022 End: 07-20-[address] DOCTOR MEYER Facility:[facility] Start: 06-01-2022 End: 06-02-[address] DOCTOR [...] encounter procedure Reji BROWER [facility] Start: 09-28-2021 End: 09-29-[address] FEDERICO CHESTER Facility: Start: 05-15-2021 End: 06-07-2021 ambulatory ROSA M GONZALES Facility:[facility] Start: 04-23-2021 Office outpatient visit 25 minutes Rosa M Gonzales Work Phone: [facility] 250 DO Work Phone: Start: 12-02-2020 End: 12-04-2020 Evaluation and management of inpatient YONAS HERRERA Facility:[facility] Start: 12-01-2020 End: 12-01-2020 Emergency department patient visit REFERRED SELF Facility:[facility] Start: 10-29-2020 End: 10-30-2020 ambulatory ROSA M GONZALES Facility:[facility] Start: 08-02-2020 End: 08-19-2020 Evaluation and management of inpatient JUAN FERREIRA Facility:[facility] Procedures Date Procedure Procedure Detail Performing [...] VEIN, PERC, NEW TECH 5 YOJANA N HORTYLER Start: 08-03-2020 INTRODUCTION OF OTHE R GAS INTO RESP TRACT, VIA OPENING YOJANA N HORTYLER Start: 12-30-2019 History of renal transplant History [...] conduit Reji BROWER Total colonoscopy Rosa M Gonzales Work Phone: Transplant of kidney Kane Gonzales Work Phone: Plan of Treatment Date Care Activity Detail Author Start: 11-09-2023 Medicare Annual Well ness (AWV) Medicare Annual Wellness (AWV) [facility] Start: 10-30-2023 End: 10-30-2023 Patient encounter procedure 10/30/2023 10:05 AM EDT Office Visit [facility] [address] [place] [id number] Alicia Fishman MD [address] [place] [address] [facility] Start: 02-01-2023 Screening for malign ant neoplasm of colon [facility] Start: 1960 Screening for malign ant neoplasm of colon [facility] Immunizations Immunization Date Immunization Notes Care Provider Fa cility 01-13-2023 influenza, injectabl e, quadrivalent, preservative free Generic Provider [facility] 01-13-2022 influenza, injectabl e, quadrivalent, preservative free Generic Provider [facility] 12-30-2021 Moderna Bivalent Booster Vaccination Generic Provider [facility] 12-30-2021 Moderna SARS-CoV-2 50mcg/0.5mL Booster Generic Provider [facility] 12-30-2021 SARS-CoV-2, Unspecified Generic Prov ider [facility] 02-01-2021 Seasonal, quadrivale nt, recombinant, injectable influenza vaccine, preservative free Rosa M Gonzales Work Phone: [place] [address] DO Work Phone: 01-06-2021 Moderna COVID-19 Vaccine 100 MCG/0.5ML Intramuscular Suspension Rosa M Gonzales Work Phone: [place] [address] DO Work Phone: 07-10-2020 Moderna COVID-19 Vaccine 100 MCG/0.5ML Intramuscular Suspension Rosa M Gonzales Work Phone: [place] [address] DO Work Phone: 06-12-2020 Moderna COVID-19 Vaccine 100 MCG/0.5ML Intramuscular Suspension Rosa M Gonzales Work Phone: [place] [address] DO Work Phone: 01-27-2020 influenza, seasonal, injectable Rosa M Gonzales Work Phone: [place] [address] DO Work Phone: 01-22-2020 Seasonal trivalent influenza vaccine, adjuvanted, preservative free Generic Provider [facility] 01-16-2020 influenza virus vaccine, unspecified formulation Rosa M Gonzales Work Phone: [place] [address] DO Work Phone: 01-16-2020 influenza, seasonal, injectable Generic Provider [facility] 02-05-2019 Seasonal, quadrivale nt, recombinant, injectable influenza vaccine, preservative free Rosa M Gonzales Work Phone: [place] [address] DO Work Phone: 05-11-2018 influenza, injectabl e, quadrivalent, preservative free Rosa M Gonzales Work Phone: [place] [address] DO Work Phone: 02-16-2018 influenza, injectabl e, quadrivalent, preservative free Rosa M Gonzales Work Phone: [facility] [address] DO Work Phone: 06-08-2017 influenza, injectabl e, quadrivalent, preservative free Rosa M Gonzales Work Phone: [place] [address] DO Work Phone: 12-16-2016 influenza, injectabl e, quadrivalent, contains preservative Rosa M Gonzales Work Phone: [place] [address] DO Work Phone: 01-28-2015 influenza, seasonal, injectable Rosa M Gonzales Work Phone: [place] [address] DO Work Phone: 04-27-2012 influenza virus vaccine, whole virus Rosa M Gonzales Work Phone: [place] [address] DO Work Phone: Payers Date Payer Category Payer Medicare [id number] 2022 Private Health Insurance [facility] [id number] 2022-Present [address] [address] [place] [address] [id number] 2016 Medicare [id number] 1960 Unknown [id number] 2.16.840.1.275838.3.579. 2.647 1960 Unknown [id number] 2.16.840.1.427570.3.579. 2.647 1960 Unknown [id number] 2.16.840.1.811289.3.579. 2.647 1960 Unknown [id number] 2.16.840.1.216085.3.579. 2.647 1960 Unknown [id number] 2.16.840.1.647769.3.579. 2.647 1960 Unknown [id number] 2.16.840.1.426261.3.579. 2.593 1960 Unknown [id number] 2.16.840.1.231113.3.579. 2.593 1960 Unknown [id number] 2.16.840.1.437538.3.579. 2.593 1960 Unknown [id number] 2.16.840.1.909679.3.579. 2.593 1960 Unknown [id number] 2.16.840.1.413831.3.579. 2.593 1960 Unknown [id number] 2.16.840.1.733124.3.579. 2.593 1960 Unknown [id number] 2.16.840.1.609394.3.579. 2.593 1960 Unknown [id number] 2.16.840.1.673642.3.579. 2.593 1960 Unknown [id number] 2.16.840.1.848002.3.579. 2.593 1960 Unknown [id number] 2.16.840.1.929848.3.579. 2.1259 1960 Unknown [id number] 2.16.840.1.053186.3.579. 2.1259 1960 Unknown [id number] 2.16.840.1.487578.3.579. 2.1259 1960 Unknown [id number] 2.16.840.1.163134.3.579. 2.1259 1960 Unknown [id number] 2.16.840.1.596049.3.579. 2.727 1960 Unknown [id number] 2.16.840.1.343132.3.579. 2.727 1959 Medicare [id number] 1959 Private Health Insurance [id number] Unknown Social History Date Type Detail Facility Start: 11-01-2022 End: 05-01-2023 No alcohol use No alcohol use [facility] Comment on above: 1-2 cups of coffee d aily.; Quit in 2008; Start: 01-01-2020 End: 11-06-2022 Tobacco smoking status Ex-smoker (finding) [facility] Start: 11-01-2022 End: 02-17-2023 Sex Assigned At Male [facility] End: 04-17-2007 History of tobacco use [...] to any clubs or organizations such as mormonism groups, unions, fraternal or athletic groups, or [...] - these days [OSQ] Not at all [facility] (I/We) worried desiree er (my/our) food would run out before (I/we) got money to buy more. Never true [facility] Start: 02-16-2023 Alcohol Comment Caffeine intak e : 1-[address] [facility] Start: 1960 Sex Assigned At Not on file [facility] Start: 06-29-2022 Gender identity Identifies as male gender (finding) [facility] Functional Status Date Assessment Result Facility 01-17-2022 Functional Status N/A [facility] Clinical Notes 08-20-2020 to 11-20-2023 Note Date & Type Note Facility 11-20-2023 Note [facility] Cardiology Clinic Note Chief Complaint: Patient here for 6 mo follow up CAD, hypertension, hyperlipidemia, and ischemic congestive cardiomyopathy. Metoprolol was decreased to 100mg daily at last apt in May 2023. His device was interrogated last month. Denies chest pain, SOB, lightheadedness/syncope. C/o fatigue. HPI: Generally doing about the same. Continues to have burning in the chest if he overexerts himself. Pertinent, he also gets this at night when he is asleep. He has to wake up and sit in the chair and the discomfort goes away. He has unusual discomfort in the right lower leg that feels like a burning . No muscle aches or cramps. No known back disease. Cardiology ROS: Review of Systems Constitutional: Positive for malaise/fatigue. Cardiovascular: Positive for palpitations (occasional). Neurological: Positive [...] no known allergies. Medications Current Outpatient Medications: aspirin 81 mg EC tablet, Take 81 mg by mouth in the morning., Disp: , Rfl: atorvastatin (Lipitor) 80 mg tablet, Take 1 tablet (80 mg) by mouth at bedtime., Disp: 90 tablet, Rfl: 3 clopidogrel (Plavix) 75 mg tablet, Take 1 tablet (75 mg) by mouth in the morning., Disp: 90 tablet, Rfl: 3 empagliflozin (Jardiance) 10 mg, Take 1 tablet (10 mg) by mouth once daily as directed., Disp: 90 tablet, Rfl: 3 esomeprazole (NexIUM) [address] capsule, TAKE 1 CAPSULE BY MOUTH BEFORE BREAKFAST, Disp: 90 capsule, Rfl: 3 famotidine (Pepcid) 20 mg tablet, Take 20 mg by mouth in the morning and at bedtime., Disp: , Rfl: isosorbide mononitrate ER (Imdur) 60 mg 24 hr tablet, TAKE 1 TABLET BY MOUTH IN THE MORNING *do not crush or chew*, Disp: 90 tablet, Rfl: 3 lisinopril 5 mg tablet, Take 1 tablet (5 mg) by mouth in the morning., Disp: 90 tablet, Rfl: 3 magnesium oxide (Mag-Ox) 400 mg tablet, 400 mg three times daily. Take 3 tablets, Disp: , Rfl: metoprolol succinate XL (Toprol-XL) 200 mg 24 hr tablet, Take 1 tablet (200 mg) by mouth once daily as directed. Do not crush or chew. (Patient taking differently: Take 100 mg by mouth once daily as directed. Do not crush or chew.), Disp: 30 tablet, Rfl: 11 mycophenolate (Myfortic) 180 mg EC tablet, Take 3 tablets (540 mg) by mouth in the morning and at bedtime., Disp: 540 tablet, Rfl: 3 nitroglycerin (Nitrostat) 0.4 mg SL tablet, Place 0.4 mg under the tongue every 5 (five) minutes if needed for chest pain., Disp: , Rfl: ranolazine (Ranexa) 500 mg 12 hr tablet, Take 1 tablet (500 mg) by mouth in the morning and at bedtime. Do not crush, chew, or split., Disp: 180 tablet, Rfl: 3 tacrolimus (Prograf) 0.5 mg capsule, Take 1 capsule (0.5 mg) by mouth in the morning. TDD 1.5mg (Patient taking differently: Take 0.5 mg by mouth two times daily. TDD 1.5mg), Disp: 30 capsule, Rfl: 11 tacrolimus (Prograf) 1 mg capsule, TDD 1.5mg, Disp: 30 capsule, Rfl: 11 albuterol (ProAir HFA) 90 mcg/actuation inhaler, Inhale 2 puffs every 4 (four) hours if needed for wheezing or shortness of breath., Disp: 8.5 g, Rfl: 2 methocarbamol (Robaxin) 500 mg tablet, Take 1 tablet (500 mg) by mouth if needed in the morning, at noon, and at bedtime for muscle spasms for up to 5 days. (Patient not taking: Reported on 02/09/2023), Disp: 15 tablet, Rfl: 0 predniSONE (Deltasone) 5 mg tablet, Take 5 mg by mouth in the morning., Disp: , Rfl: Last Recorded Vitals BP 124/84 (BP Location: Right arm, Patient Position: Sitting) Pulse 64 Ht 1.803 m (5' 11 ) Wt 91.6 kg (202 lb) SpO2 97% BMI 28.17 kg/m??? Physical Examination: GENERAL: alert and oriented x3, well developed, in no acute distress. HEAD: atraumatic, normocephalic. EYES: PROSPER, EOMI. NECK: trachea midline, no JVD present, no carotid bruits present. CARDIAC: S1, (more content not included)... [facility] 06-05-2023 Note [facility] Cardiology Clinic Note Chief Complaint: Patient here [...] 28.70 kg/m??? Physica (more content not included)... [facility] 05-18-2023 Note 05/18/23 I called the [...] Pt verbalized understanding of the dose change. [facility] 05-18-2023 Note 05/18/23 DD Renal transplant on (08/15/2017) by Dr. Marquez. CMV +/-. History of PKD. Patient has recent history of an CO and had Pacer/Defib Placed. Vishal Duke is [...] Review Audit Reviewed by Cierra Danielson MA (Call Center Support Representative) on 05/18/23 at 1014 Medication Order Taking? Sig Documenting Provider Last Dose Status albuterol (ProAir HFA) 90 mcg/actuation inhaler [id number] Yes Inhale 2 puffs every 4 (four) hours if needed for wheezing or shortness of breath. Laney Busch MD Taking Active aspirin 81 mg EC tablet [id number] Yes Take 81 mg by mouth in the morning. Historical Provider, Taking Active atorvastatin (Lipitor) 80 mg tablet [id number] Yes Take 1 tablet (80 mg) by mouth at bedtime. Federico Chester MD Taking Active clopidogrel (Plavix) 75 mg tablet [id number] Yes Take 1 tablet (75 mg) by mouth in the morning. Federico Chester MD Taking Active empagliflozin (Jardiance) 10 mg [id number] Yes Take 1 tablet (10 mg) by mouth once daily as directed. Federico Chester MD Taking Active esomeprazole (NexIUM) [address] capsule [id number] Yes Take 1 capsule (40 mg) by mouth before breakfast. Do not open capsule. Federico Chester MD Taking Active famotidine (Pepcid) 20 mg tablet [id number] No Take 20 mg by mouth in the morning and at bedtime. Historical ProviderMD Not Taking Flag for Review isosorbide mononitrate ER (Imdur) 60 mg 24 hr tablet Yes Take 1 tablet (60 mg) by mouth in the morning. Do not crush or chew. Federico Chester MD Taking Active lisinopril 5 mg tablet [id number] Yes Take 1 tablet (5 mg) by mouth in the morning. Federico Chester MD Taking Active magnesium oxide (Mag-Ox) 400 mg tablet [id number] Yes 400 mg in the morning. Take 3 tablets Historical ProviderMD Taking Differently Active methocarbamol (Robaxin) 500 mg tablet [id number] Take 1 tablet (500 mg) by mouth [...] Active mycophenolate (Myfortic) 180 mg EC tablet [id number] Yes Take 3 tablets (540 mg) by mouth in the morning and at bedtime. Petey Redding NP Taking Active nitroglycerin (Nitrostat) 0.4 mg SL tablet [id number] Yes Place 0.4 mg under the tongue every 5 (five) minutes if needed for chest pain. Historical ProviderMD Taking Active predniSONE (Deltasone) 5 mg tablet [id number] Yes Take 5 mg by mouth in the morning. Makayla ProviderMD Taking Differently Active ranolazine (Ranexa) 500 mg 12 hr tablet Yes Take 1 tablet (500 mg) by mouth in the morning and at bedtime. Do not crush, chew, or split. Federico Chester MD Taking Active tacrolimus (Prograf) 0.5 mg capsule [id number] Yes Take 1 capsule (0.5 mg) by mouth in the morning. TDD 1.5mg Patient taking differently: Take 0.5 mg by mouth once daily in the evening. TDD (more content not included)... [facility] 03-29-2023 Note Patient's tac level of 9.[address] Basurto and he just wants to watch it no medication change. Maria G Mayberry RN [facility] 03-28-2023 Note 03/28/23 Chief Complaint Patient presents with Kidney Follow-up Patient have no concerns PCP: Rosa M Gonzales MD Txp Referring: [facility]erred [id number] - [place] [place] [facility] [address] [address] [facility] [address] Subjective Visit Vitals BP 111/61 Pulse 60 Wt 90.3 kg (199 lb) BMI 27.75 kg/m??? Smoking Status Former BSA 2.13 m??? No Known Allergies Medication Documentation Review Audit Reviewed by Tim Foy MA (Call Center Support Representative) on 03/28/23 at 0912 Medication Order Taking? Sig Documenting Provider Last Dose Status albuterol (ProAir HFA) 90 mcg/actuation inhaler [id number] Yes Inhale 2 puffs every 4 (four) hours if needed for wheezing or shortness of breath. Laney Busch MD Taking Active aspirin 81 mg EC tablet [id number] Yes Take 81 mg by mouth in the morning. Historical Provider, Taking Active atorvastatin (Lipitor) 80 mg tablet [id number] Yes Take 1 tablet (80 mg) by mouth at bedtime. Federico Chester MD Taking Active clopidogrel (Plavix) 75 mg tablet [id number] Yes Take 1 tablet (75 mg) by mouth in the morning. Federico Chester MD Taking Active empagliflozin (Jardiance) 10 mg [id number] Yes Take 1 tablet (10 mg) by mouth once daily as directed. Federico Chester MD Taking Active esomeprazole (NexIUM) [address] capsule [id number] Yes Take 1 capsule (40 mg) by mouth before breakfast. Do not open capsule. Federico Chester MD Taking Active famotidine (Pepcid) 20 mg tablet [id number] Yes Take 20 mg by mouth in the morning and at bedtime. Historical ProviderMD Taking Active isosorbide mononitrate ER (Imdur) 60 mg 24 hr tablet [id number] Yes Take 1 tablet (60 mg) by mouth in the morning. Do not crush or chew. Federico Chester MD Taking Active lisinopril 5 mg tablet [id number] Yes Take 1 tablet (5 mg) by mouth in the morning. Federico Chester MD Taking Active magnesium oxide (Mag-Ox) 400 mg tablet [id number] Yes 400 mg in the morning. Historical ProviderMD Taking Active methocarbamol (Robaxin) 500 mg tablet [id number] Take 1 tablet (500 mg) by mouth if needed in the morning, at noon, and at bedtime for muscle spasms for up to 5 days. Patient not taking: Reported on 02/09/2023 Amelia Olson MD 01/30/23 2359 metoprolol succinate XL (Toprol-XL) 200 mg 24 hr tablet [id number] Yes Take 1 tablet (200 mg) by mouth once daily as directed. Do not crush or chew. Federico Chester MD Taking Active mycophenolate (Myfortic) 180 mg EC tablet [id number] Yes Take 3 tablets (540 mg) by mouth in the morning and at bedtime. Bobby Maldonado MD Taking Active nitroglycerin (Nitrostat) 0.4 mg SL tablet [id number] Yes Place 0.4 mg under the tongue every 5 (five) minutes if needed for chest pain. Historical Provider, Taking Active predniSONE (Deltasone) 5 mg tablet [id number] Yes Take 5 mg by mouth every other day. Historical ProviderMD Taking Active ranolazine (Ranexa) 500 mg 12 hr tablet Yes Take 1 tablet (500 mg) by mouth in the morning and at bedtime. Do not crush, chew, or split. Federico Chester MD Taking Active tacrolimus (Prograf) 0.5 mg capsule [id number] Yes tacrolimus 0.5 mg capsule, immediate-release TAKE [...] bronchitis Acute non-ST elevation myocardial infarction (NSTEMI) ([facility]/HCC) Age-related nuclear cataract of left eye 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 Coronary artery disease involving [place] coronary artery of [place] heart with unstable angina pectoris (CMS/HCC) Gastroesophageal reflux disease Hypertension End-stage renal disease ([facility]/HCC) Coronary atherosclerosis Hyperkalemia History of kidney disease Gouty arthropathy Hypervitaminosis A Increased infection risk status post immunosuppressive therapy Lower urinary tract symptoms due to benign prostatic hyperplasia Male hypogonadism Hyperlipidemia Microscopic hematuria Mixed hyperlipidemia Myocardial infarction (CMS/HCC) Neuropathy Nocturia Renal failure Pyelonephritis Pseudophakia PCO (posterior capsular opacification), right Stage 4 chronic kidney disease ([facility]/HCC) Stage 3 chronic kidney disease ([facility]/HCC) Upper respiratory infection Status post insertion of drug-eluting stent into left anterior descending (LAD) artery for coronary artery disease Ventricular tachycardia ([facility]/HCC (more content not included)... [facility] 03-08-2023 Note New standing lab ord er placed in intraoffice mail today to go out> [facility] 03-08-2023 Note New standing lab ord er placed in today's outgoing mail. Following call from clinic MERCED[facility] Lion that pt is @ [facility] for lab draws, faxed to [phone] new order and requested [place] fax all lab results to [facility] as last monthly lab results were received November 2022. Pt notified order sent & mailed and to contact [facility] monthly when labs are completed to confirm receipt or have testing @ [facility]. He acknowledged. Encouraged to FU next week with [facility]. [facility] 03-01-2023 Note Patient called statkennedi calvo his repeat tac level still 3.6 in his My Chart, we do not have results yet.. Patient will increase by 0.5 mg in the morning, now on 1 mg in am and 0.5 mg in afternoon of prograf. He will repeat level in one week. [facility] 02-21-2023 Note Per franchesca at Dr serrano an office, incisional culture came back positive pseudomonis, suseptable to Cipro 500 mg BID x [address] Maldonado notified. [facility] 02-17-2023 Note Patient called to re port that he finished antibiotic for incision infection and was told looking better and they did take sample to send for culture. [facility] 02-09-2023 Note Patient states he wi ll repeat his tac level as not a true 12 hour trough, he did not take yesterday yoselin dose. [facility] 02-09-2023 Note 02/08/23 DD Renal transplant on (08/15/2017) by Dr. Marquez. CMV +/-. Patient has recent history of an CO and had Pacer/Defib Placed. Patient here for follow up Nephrectomy Patient states he is feeling good with a 21 pound weight loss since bilat [place] kidney's removed. He states that he currently [...] Status albuterol (ProAir HFA) 90 mcg/actuation inhaler [id number] Yes Inhale 2 puffs every 4 (four) hours if needed for wheezing or shortness of breath. Laney Busch MD 01/24/2023 0530 Active aspirin 81 mg EC tablet [id number] Yes Take 81 mg by mouth in the morning. Makayla Gates MD 01/24/2023 0530 Active atorvastatin (Lipitor) 80 mg tablet [id number] Yes Take 1 tablet (80 mg) by mouth at bedtime. Federico Chester MD 01/23/2023 2100 Active clopidogrel (Plavix) 75 mg tablet [id number] Yes Take 1 tablet (75 mg) by mouth in the morning. Federico Chester MD Past Week Active empagliflozin (Jardiance) 10 mg [id number] Yes Take 1 tablet (10 mg) by mouth once daily as directed. Federico Chester MD 01/23/2023 0800 Active esomeprazole (NexIUM) [address] capsule [id number] Yes Take 1 capsule (40 mg) by mouth before breakfast. Do not open capsule. Federico Chester MD 01/24/2023529 Active famotidine (Pepcid) 20 mg tablet [id number] Yes Take 20 mg by mouth in the morning and at bedtime. Makayla ProviderMD Past Month 529 Active isosorbide mononitrate ER (Imdur) 60 mg 24 hr tablet [id number] Yes Take 1 tablet (60 mg) by mouth in the morning. Do not crush or chew. Federico Chester MD 01/24/2023529 Active lisinopril 5 mg tablet [id number] Yes Take 1 tablet (5 mg) by mouth in the morning. Federico Chester MD 01/24/2023799 Active magnesium oxide (Mag-Ox) 400 mg tablet [id number] Yes 400 mg in the morning. Makayla Gates MD 01/24/2023529 Active metoprolol succinate XL (Toprol-XL) 200 mg 24 hr tablet [id number] Yes Take 1 tablet (200 mg) by mouth once daily as directed. Do not crush or chew. Federico Chester MD 01/24/2023529 Active mycophenolate (Myfortic) 180 mg EC tablet [id number] Yes Take 3 tablets (540 mg) by mouth in the morning and at bedtime. Bobby Maldonado MD 01/24/2023529 Active nitroglycerin (Nitrostat) 0.4 mg SL tablet [id number] Yes Place 0.4 mg under the tongue every 5 (five) minutes if needed for chest pain. Historical ProviderMD Past Month Active predniSONE (Deltasone) 5 mg tablet [id number] Yes Take 5 mg by mouth every other day. Makayla Gates MD 01/24/2023529 Active ranolazine (Ranexa) 500 mg 12 hr tablet Yes Take 1 tablet (500 mg) by mouth in the morning and at bedtime. Do not crush, chew, or split. Federico Chester MD 01/24/2023529 Active tacrolimus (Prograf) 0.5 mg capsule [id number] Yes tacrolimus 0.5 mg capsule, immediate-release TAKE 1 CAPSULE BY MOUTH TWICE DAILY Phoebe Culver MD 01/24/2023529 Active Immunization History Administered Date(s) Administered Unspecified Sars-Cov-2 Vaccination 12/30/2021 Patient Active Problem List Diagnosis Aftercare following organ transplant Kidney replaced by transplant Electrolyte abnormality Immunosuppression ([facility]/HCC) Polycystic kidney disease, autosomal dominant Elevated hemoglobin ([facility]/HCC) Other abnormality of red blood cells Post-COVID chronic dyspnea Chronic systolic congestive heart failure ([facility]/HCC) Active rickets Acute bronchitis Acute non-ST elevation myocardial infarction (NSTEMI) ([facility]) Age-related nuclear cataract of left eye 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 Coronary artery disease involving [place] coronary artery of [place] heart with unstable angina pectoris ([facility]/HCC) Gastroesophageal reflux disease Essential hypertension End-stage renal disease ([facility]/HCC) Coronary atherosclerosis Hyperkalemia History of kidney disease Gouty arthropathy Hypervitaminosis A Increased infection risk status post immunosuppressive therapy Lower urinary tract symptoms due to benign prostatic hyperplasia Male hypogonadism Hyperlipidemia Microscopic hematuria Mixed hyperlipidemia Myocardial infarction (CMS/HCC) Neuropathy Nocturia Renal failure Pyelonephritis Pseudophakia PCO (posterior capsular opacification), right Stage 4 chronic kidney disease ([facility]/HCC) Stage 3 chronic kidney disease ([facility]/HCC) Upper respiratory infection Status post insertion of drug-eluting stent into left anterior descending (LAD) artery for cor (more content not included)... [facility] 01-25-2023 Note 01/25/23 1022 Admission Assessment [...] Discharge? Yes Does the patient have a caseworker protective services assigned to them through their insurance? No [...] activate MyChart? Yes Home once medically ready [facility] 01-25-2023 Note Attestation signed by Bobby [...] be an additional personal documentation from me. [facility] Department of Urology DAILY PROGRESS NOTE Subjective [...] appear stable. The adrenal glands appear stable. [place] kidneys are diffusely replaced by cystic change. [...] is unchanged. Impress (more content not included)... [facility] 01-25-2023 Note Patient: Vishal felix Procedure Summary Date: 01/24/23 Room / Location: [facility] OPERATING ROOM 13 / [facility] Operating Room Anesthesia Start: 755 Anesthesia [...] per anesthesia protocol. No notable events documented. [facility] 01-24-2023 Note Patient: Vishal felix Procedure Summary Date: 01/24/23 Room / Location: [facility] OPERATING ROOM 13 / [facility] Operating Room Anesthesia Start: 755 Anesthesia Stop: Procedure: NEPHRECTOMY, ROBOT-ASSISTED (Bilateral: Abdomen) [...] and follow verbal commands throughout transport process [facility] 01-24-2023 Note Airway Date/Time: 01/24/2023 8:14 AM Urgency: elective Airway not difficult General Information and Staff Patient location during procedure: OR Resident/RAILROAD CONSTRUCTION DIRECTOR/CAA: Nicola Roblero MD Performed: resident/RAILROAD CONSTRUCTION DIRECTOR/CAA Learner assisted: Cyn Grim, MS4 Indications and Patient Condition Indications for airway [...] 22 Number of attempts at approach: 1 [facility] 01-24-2023 Note Arterial Line: Date/Time: 01/24/2023 [...] complications. Additional notes: Under [place] Staffing Performed: resident/RAILROAD CONSTRUCTION DIRECTOR/TEE Resident/RAILROAD CONSTRUCTION DIRECTOR: Nicola Roblero MD Performed by: Nicola Roblero MD Authorized by: Shaan Dawson MD [facility] 01-24-2023 Note Patient: Vishal felix Procedure Information Date/Time: 01/24/23 0730 Procedure: NEPHRECTOMY, ROBOT-ASSISTED possible bilateral (Right) Location: [facility] OPERATING ROOM 13 / [facility] Operating Room Surgeons: Bobby Maldonado MD [...] failure (CMS/HCC) (+) Coronary artery disease involving [place] coronary artery of [place] heart with unstable angina pectoris (CMS/HCC) (+) [...] Plan discussed with attending. Additional Equipment Requests [facility] 01-12-[address] Maldonado , now need to do phlebotomy for recent of hematocrit 50.8 and HGB of 16.4. Dr Maldonado waits until hematocrit is 55 and hgb closer to 17. Patient will be having nephrectomy 01/24/23 and will repeat labs then. [facility] 12-22-2022 Note 12/22/22 PCP: Rosa M Gonzales MD Txp Referring: Preferred Pharmacy: [id number] - [place], [place] - [address] [facility] [address] [place] [address] Subjective Visit Vitals BP 136/77 Pulse 60 Wt 95.6 kg (210 lb 11.2 oz) BMI 30.23 kg/m??? Smoking Status Former BSA 2.17 m??? No Known Allergies Medication Documentation Review Audit Reviewed by Tim Foy MA (Call Center Support Representative) on 12/22/22 at 0857 Medication Order Taking? Sig Documenting Provider Last Dose Status albuterol (ProAir HFA) 90 mcg/actuation inhaler [id number] Yes Inhale 2 puffs every 4 (four) hours if needed for wheezing or shortness of breath. Laney Busch MD Taking Active aspirin 81 mg EC tablet [id number] Yes Take 81 mg by mouth in the morning. Historical Provider, Taking Active atorvastatin (Lipitor) 80 mg tablet [id number] Yes Take 1 tablet (80 mg) by mouth at bedtime. Federico Chester MD Taking Active clopidogrel (Plavix) 75 mg tablet [id number] Yes Take 1 tablet (75 mg) by mouth in the morning. Federico Chester MD Taking Active empagliflozin (Jardiance) 10 mg [id number] Yes Take 1 tablet (10 mg) by mouth once daily as directed. Federico Chester MD Taking Active esomeprazole (NexIUM) [address] capsule [id number] Yes Take 1 capsule (40 mg) by mouth before breakfast. Do not open capsule. Federico Chester MD Taking Active famotidine (Pepcid) 20 mg tablet [id number] Yes Take 20 mg by mouth in the morning and at bedtime. Makayla Gates MD Taking Active isosorbide mononitrate ER (Imdur) 30 mg 24 hr tablet [id number] Yes Take 1 tablet (30 mg) by mouth once daily as directed. Do not crush or chew. Federico Chester MD Taking Active isosorbide mononitrate ER (Imdur) 60 mg 24 hr tablet Yes Take 1 tablet (60 mg) by mouth in the morning. Do not crush or chew. Federico Chester MD Taking Active lisinopril 5 mg tablet [id number] Yes Take 1 tablet (5 mg) by mouth in the morning. Federico Chester MD Taking Active magnesium oxide (Mag-Ox) 400 mg tablet [id number] Yes 400 mg in the morning. Makayla Gates MD Taking Active metoprolol succinate XL (Toprol-XL) 200 mg 24 hr tablet Yes Take 1 tablet (200 mg) by mouth once daily as directed. Do not crush or chew. Federico Chester MD Taking Active mycophenolate (Myfortic) 180 mg EC tablet [id number] Yes Take 540 mg by mouth in the morning and at bedtime. Makayla Gates MD Taking Active nitroglycerin (Nitrostat) 0.4 mg SL tablet [id number] Yes Place 0.4 mg under the tongue every 5 (five) minutes if needed for chest pain. Makayla Gates MD Taking Active predniSONE (Deltasone) 5 mg tablet [id number] Yes Take 5 mg by mouth every other day. Makayla Gates MD Taking Active ranolazine (Ranexa) 500 mg 12 hr tablet Yes Take 1 tablet (500 mg) by mouth in the morning and at bedtime. Do not crush, chew, or split. Federico Chester MD Taking Active tacrolimus (Prograf) 0.5 mg capsule [id number] Yes tacrolimus 0.5 mg capsule, immediate-release TAKE 1 CAPSULE BY MOUTH TWICE DAILY Historical MD Yajaira Taking Active There is no immunization history [...] sites without tophus Coronary artery disease involving [place] coronary artery of [place] heart with unstable angina pectoris (CMS/HCC) Gastroesophageal [...] of Onset A (more content not included)... [facility] 12-05-2022 Note [facility] Note Chief Complaint: Patient here for 6 mo follow up CAD, CKD, ischemic congestive cardiomyopathy, and hypertension. Had echo in August 2022 at [facility]. Device was checked last month. HPI: [...] urologist wishes to remove one of his [place] kidneys as it is pressing up on the stomach and into the chest. Update 12/05/2022: Doing about the same His urologist has decided against removal of his [place] kidney until it causes significant symptoms Mr. [...] Rfl: predniSONE (Deltas (more content not included)... [facility] 05-30-2022 Note CARDIAC STRESS TEST Requesting [...] and relayed in a separate dictation. [facility] 01-17-2022 Hospital Discharge instructions Patient [...] urethra. Follow these instructions at home: Take [id number] and prescription medicines only as told by [...] 04/03/2006 Document Revised: 02/26/2019 Document Reviewed: 05/08/2017 Monogram Patient Education [employer]. Follow Up Care 11/09/2021 10:07:55 With:LEONARDA FRANK, Reji Farrell, URL Address: [facility] [address], [place] [id number]- [phone] When:01/18/2024 Comments:PSA [facility] 01-17-2022 Evaluation + Plan note Diagnostic Tests PendingPSA Total 01/17/22 [facility] 06-01-2021 Note PROCEDURE: [place] VCT 64, 5.0 mm slice axial images [...] signed by Anjum Remy on 06/01/2021 [address] [facility] Folder Gluer Operator 12-05-2020 Note MR#: [id number] I [facility] Pt. Name: Vishal Duke Admitted: 12/02/2020 [...] Herrera MD Date Trans: 12/05/2020 05:37 A/patrizia [id number] cc: Rosa M Gonzales M.D. [address] [place] [address] [facility] 08-18-2021 Note MR#: [id number] [facility] Pt. Name: Vishal Duke Date of Service: 12/02/2020 Room #: 4CD [id number] Birthdate: 1960 Referring Physician: CONSULTATION Reason for [...] disease, gout, GERD, hypertension, CAD status post CO and 2 stents, HLD, Covid pneumonia Past [...] Watkins, DO Date Trans: 12/02/2020 05:52 P/ [id number] cc: Rosa M Gonzales M.D. [facility] Federico Carvalho [facility] [address] [facility] 08-20-2020 Note MR#: [id number] I [facility] Pt. Name: Vishal Duke Admitted: 08/02/2020 [...] x2 in June. The patient's son and [id number] were symptomatic just before him. The patient was complaining of fatigue and mild body aches. The patient also developed cough and mild shortness of breath. His dyspnea was initially with exertion, but progressed to minimal activity. After he spoke with his cutter hand, he decreased his Myfortic dose and received [...] Ferreira M.D. Date Trans: 08/20/2020 05:24 A/patrizia [id number] cc: Rosa M Gonzales M.D. [address] [place] [address] [facility] [address] [facility] History of Present illness Narrative Patient [...] he saw his regular Gunn by his draw bench operator helper to agreed with and endorsed the care we rendered. The device was interrogated it in their office and it appears to be functioning appropriately. Because of all the above he is pleased with his care. He'll be following up henceforth with the Gunn draw bench operator helper and we advised him were always happy to participate in his care if he needs help. I believe his ICD will be interrogated and managed through their office. We also note that his renal transplant was not injured as a result of the hospitalization and contrast administration and/or antibiotic therapy because of this he is pleased. [facility] 250 DO Work Phone: Hospital course Narrative No data available for this section [facility] Progress note No data available for this section [facility] Chief Complaint VISHAL DUKE is being seen for follow-up of a hospitalization for [facility] 12/11/2020 ICD insert. Family History No [...] section and content) DATE CREATED AUTHOR 04/25/2021 [employer] DATE CREATED AUTHOR AUTHOR'S ORGANIZ ATION 05/10/2021 [facility] DATE CREATED AUTHOR AUTHOR'S ORGANIZ ATION 07/18/2021 [facility] DATE CREATED AUTHOR AUTHOR'S ORGANIZ ATION 01/17/2022 [facility] dical Specialist DATE CREATED AUTHOR AUTHOR'S ORGANIZ ATION 08/25/2022 [facility] DATE CREATED AUTHOR AUTHOR'S ORGANIZ ATION 11/21/2023 [facility] DATE CREATED AUTHOR AUTHOR'S ORGANIZ ATION 11/26/2023 [facility] d[facility] Specialists EPIC DATE CREATED AUTHOR AUTHOR'S ORGANIZ ATION 12/03/2023 Roger Murry [facility] Care Team (unrecognized sect ion and content) Program Aide Group Work Relationship Specialty Start Date End Date Rosa M Gonzales MD [address] [place] [address] PCP - [facility] 09/08/22 Rosa M Gonzales MD [address], [place] [id number] PCP - General Family Medicine 10/25/22 Rosa [...] BE BASED ON THE PRIMARY CLINICAL RECORDS. [employer] provides no warranty or guarantee of the accuracy or completeness of information in this document.
== END 2023-12-07 08:51 | disposition home or self-care (01) ==
LOC: CARD 08:50
PROVIDERS: PCP Family Medicine; Visit Provider Internal Medicine Interventional Cardiology
DX: I25.5 Ischemic cardiomyopathy (principal); I42.0 Dilated cardiomyopathy
CPT/HCPCS: 93306

== ENCOUNTER 2023-12-28 08:33 | Outpatient (OUT) | payer MEDICARE, SELFPAY ==
[2023-12-28 09:20] LABS: Basophils Percent Auto 0.6 % (0.2-2.0); Eosinophils Absolute Auto 0.1 10^3/uL (0.0-0.7); Eosinophils Percent Auto 1.6 % (0.9-7.0); Hematocrit 48.4 % (42.0-54.0); Hemoglobin 15.7 g/dL (14.0-18.0); Immature Granulocytes Abs Auto 0.03 10^3/uL (0.00-0.03); Immature Granulocytes Pct Auto 0.5 % (0.0-0.5); Lymphocytes Percent Auto 15.2 % (20.5-60.0); Mean Corpuscular HGB Conc 32.4 g/dL (29.9-35.2); Mean Corpuscular Hemoglobin 30.3 pg (25.9-34.0); Mean Corpuscular Volume 93.4 fL (80.0-94.0); Mean Platelet Volume 10.8 fL (9.5-13.5); Monocytes Absolute Auto 0.6 10^3/uL (0.3-0.8); Monocytes Percent Auto 9.7 % (1.7-12.0); Neutrophils Absolute Auto 4.5 10^3/uL (1.4-6.5); Neutrophils Percent Auto 72.4 % (43.0-75.0); Platelet Count 217 10^3/uL (150-450); Red Blood Count 5.18 10^6/uL (4.70-6.10); Red Cell Distribution Width 13.3 % (11.0-15.0); White Blood Count 6.3 10^3/uL (4.0-11.0)
[2023-12-28 10:23] LABS: Alanine Aminotransferase 37 U/L (16-63); Albumin Globulin Ratio 1.4; Albumin Level 3.8 g/dL (3.4-5.0); Alkaline Phosphatase 96 U/L (46-116); Anion Gap 13.9; Aspartate Amino Transferase 24 U/L (15-37); BUN Creatinine Ratio 13.6; Bilirubin Direct 0.2 mg/dL (0.0-0.2); Bilirubin Total 0.8 mg/dL (0.2-1.0); Carbon Dioxide 28.4 mmol/L (21.0-32.0); Chloride 105 mmol/L (98-107); Chol HDL Ratio 2.7; Cholesterol 108 mg/dL (<=200); Estimated GFR (African America >60 (>=60); Estimated GFR (Non-African Ame >60 (>=60); Globulin 2.8 g/dL; Glucose 131 mg/dL (74-106); HDL Cholesterol 40 mg/dL (40-60); LDL Cholesterol Calculated 41.8 mg/dL; Magnesium 1.5 mg/dL (1.8-2.4); Phosphorus 3.1 mg/dL (2.6-4.7); Potassium 4.3 mmol/L (3.5-5.1); Sodium 143 mmol/L (136-145); Total Protein 6.6 g/dL (6.4-8.2); Triglycerides 131 mg/dL (<=150); VLDL CHOLESTEROL 26.2 mg/dL
[2023-12-30 14:15] LABS: BKV DNA, Quant PCR, Plasma Negative (Negative)
[2023-12-31 14:16] LABS: Tacrolimus (FK506), Blood 7.5 ng/mL (2.0-20.0)
== END 2023-12-28 08:34 | disposition home or self-care (01) ==
LOC: LAB 08:34
PROVIDERS: PCP Family Medicine
DX: E13.9 Other specified diabetes mellitus without complications (principal); Z94.0 Kidney transplant status
CPT/HCPCS: 36415; 80053; 80061; 80197; 82248; 83735; 84100; 84550; 85025; 87799

== ENCOUNTER 2024-01-25 10:16 | Outpatient (OUT) | payer MEDICARE, SELFPAY ==
[2024-01-25 11:36] LABS: Prostate Specific Antigen Dx 0.91 ng/mL (<=4.00)
== END 2024-01-25 10:17 | disposition home or self-care (01) ==
LOC: LAB 10:18
PROVIDERS: PCP Family Medicine; Visit Provider Urology
DX: N40.1 Benign prostatic hyperplasia with lower urinary tract symptoms (principal)
CPT/HCPCS: 36415; 84153

== ENCOUNTER 2024-02-01 09:39 | Outpatient (OUT) | payer MEDICARE, SELFPAY ==
--- OUTSIDE RECORDS SUMMARY | 2024-02-01 09:49 | XMS_ITS | CCD ---
Author Organization [facility] Care Team Providers Care [employer]ir[employer] Clerk Name Role Phone Rosa M Gonzales Unavailable Unavailable Unavailable YONAS HERRERA Surgeon Unavailable MA Procedure Practitioner Unavailab YONAS Hsieh Attending Unavailable [...] Primary Care Unavailable YOJANA MCDANIELS Surgeon Unavailable MA Procedure Practitioner Unavailab prabhakar MACDONALD, REFERRED Referring [...] Unavailable JANET, DR DUVAL Primary Care Unavailable JULIO CESAR, DR AIME Arnold Consulting Unavailable ELTAHAWY, DR [...] Care Provider Lc GODWIN, Rosa M Unavailable ROSA M GONZALES Primary Care Physician Rosa M Gonzales MD Unavailable Reji BROWER Attending Unavailable PETITTALICIA Bradford Attending Unavailable ROSA M GONZALES Attending Unavailable PETALICIA FELDMAN Attending Unavailable ROSA M GONZALES Attending Unavailable EFREN CENTENO Attending Unavailable KAMPFERNICKI Attending Unavailable KAMPWILLIAM, NICKI Attending Unavailable EKWENNA, OBI Attending Unavailable ELTAHAWY, LUNAAB Attending Unavailable TEAGAN VILLANUEVA Referring Unavailable ELTAHAWY, FEDERICO Attending Unavailable TEAGAN VILLANUEVA Referring Unavailable SAVZYANMACRINA Attending Unavailable EKWENNA, OBI Attending Unavailable PETEY REDDING Attending Unavailable Reji BROWER Attending Unavailable Xochilt Graham Referring Unavaila ble Sarmini, Xochilt Butler Admitting Unavaila ble SarminiXochilt Attending Unavaila ble Sarmini, Xochilt Butler Attending Unavaila ble Sarmini, Xochilt Butler Attending Unavaila ble Allergies Allergy Classification Reported Allergen(s) Allergy Type Date of Onset Reaction(s) Facility (1 source) 12095,00; Translations: [03210,00] Propensity to adverse reactions (disorder) 9 [facility] Repository (2 sources) Cephalexin; Translations: [Keflex] Drug Allergy [facility] Repository Medications Current Medications Medication Drug Class(es) Dates Sig (Normalized) Sig (Original) [id number] 200 actuat albuterol 0.09 mg/actuat metered dose inhaler (5 sources) beta2-Adrenergic Agonist Start: 10-24-2022 End: 06-26-2024 take 2 puff(s) by inhalation every four hours albuterol HFA 90 mcg/act inhaler Indications: Simple chronic bronchitis (CMS/HCC) Inhale 2 puffs every 4 (four) hours if needed for shortness of breath 18 g 06/27/2023 06/26/2024 Active atorvastatin 80 mg oral tablet (9 sources) HMG-CoA Reductase Inhibitor Start: 01-17-2022 take 1 tablet by mouth in the morning atorvastatin (Lipitor) 80 MG tablet Take 80 mg by mouth in the morning. 11/21/2022 Active Start: 01-04-2021 take 1 tablet by jacob th once daily Atorvastatin Calcium 80 MG Oral Tablet TAKE 1 TABLET BY MOUTH EVERY DAY Quantity: 30 Refills: 0 Ordered: 04-Apr-2021 DO Start : 04-Jan-2021 Active clopidogrel 75 mg oral tablet (9 sources) P2Y12 Platelet Inhibitor Start: 01-04-2021 take 1 tablet by mouth once daily clopidogrel 75 mg Tab 75 mg = 1 tab(s), Oral, Daily, Blood Thinner Start Date: 01/17/22 Status: Ordered clotrimazole 10 mg oral lozenge (3 sources) Azole Antifungal Start: 01-01-2020 take 1 mg by mouth once daily clotrimazole 10 mg Jennifer mg lozenge(s), Oral, 5x/Day, Refills(s) 0, Infection or prophylaxis for antibiotics Start Date: 01/01/20 Status: Ordered dapagliflozin 10 mg oral tablet (3 sources) Sodium-Glucose Cotransporter 2 Inhibitor Start: 01-17-2022 [...] DO Active empagliflozin 10 mg oral tablet (5 sources) Sodium-Glucose Cotransporter 2 Inhibitor Start: 07-05-2022 End: 07-05-2023 take 10 mg by mouth in the morning empagliflozin (Jardiance) 10 MG Take 10 mg by mouth in the morning. 07/05/2022 Active esomeprazole 40 mg delayed release oral capsule (6 sources) Proton Pump Inhibitor Start: 01-11-2024 take 1 capsule by mouth once daily Nexium 40 mg Cap-EC 40 mg = 1 cap(s), Oral, Daily, Refills(s) 0, Control of stomach acid Start Date: 01/11/24 Status: Ordered famotidine 40 mg oral tablet (2 sources) Histamine-2 Receptor Antagonist Start: 12-25-2023 take 1 tablet by mouth once daily at bedtime famotidine 40 mg Tab 40 mg = 1 tab(s), Oral, Once a day (at bedtime), # 90 tab(s), Refills(s) 0, Pharmacy: [id number], 177.8, cm, 12/25/23 9:23:00 EDT, Height/Length Dosing, 94.3, kg, 12/25/23 9:23:00 EDT, Weight Dosing Start Date: 12/25/23 Status: Ordered fluocinonide 0.5 mg/ml topical solution (1 source) Corticosteroid Start: 02-06-2023 fluocinonide (Lidex) 0.05 % external solution Indications: Other seborrheic dermatitis Apply to affected areas on the scalp twice a day for flares, set aside when clear. 30 days 60 mL 11 02/06/2023 Active 24 hr isosorbide mononitrate 60 mg extended release oral tablet (6 sources) Nitrate Vasodilator Start: 01-11-2024 take 1 tablet by mouth once daily in the morning isosorbide mononitrate 60 mg ER Tab 60 mg = 1 tab(s), Oral, qAM, Refills(s) 0, High blood pressure Start Date: 01/11/24 Status: Ordered Start: 07-19-2023 take 1 tablet by jacob th every twenty-four hours in the morning isosorbide mononitrate ER (Imdur) 60 MG 24 hr tablet TAKE 1 TABLET BY MOUTH IN THE MORNING do not crush or chew 07/19/2023 Active Start: 09-21-2022 take 1 tablet by jacob th every twenty-four hours in the morning isosorbide mononitrate ER (Imdur) 30 MG 24 hr tablet Take 1 tablet by mouth in the morning. 0 09/21/2022 Active ketoconazole 20 mg/ml topical cream (3 sources) Azole Antifungal Start: 01-26-2024 End: 02-09-2024 ketoconazole (NIZOral) 2 % cream Indications: Tinea corporis Apply topically Daily for 14 days Apply thin layer to affected area daily 60 g 01/26/2024 02/09/2024 Active lisinopril 5 mg oral tablet (9 sources) Angiotensin Converting Enzyme Inhibitor Start: 01-03-2020 take 1 mg by mouth once daily lisinopril 5 mg Tab mg tab(s), Oral, Daily, Refills(s) 0, High blood pressure Start Date: 01/03/20 Status: Ordered magnesium amino acid chelate (2 sources) Start: 01-01-2020 magnesium butcher o acids chelate Oral, Refills(s) 0 Start Date: 01/01/20 Status: Ordered magnesium oxide 400 mg oral tablet (9 sources) Start: 12-08-2023 take 1 tablet by mouth three times daily at bedtime magnesium oxide (Mag-Ox) 400 (240 Mg) MG tablet Indications: History of kidney transplant (CMS/HCC) TAKE 1 TABLET BY MOUTH THREE TIMES DAILY (IN THE MORNING, IN THE EVENING, and BEFORE bedtime) 270 tablet 1 12/08/2023 Active Start: 01-17-2022 End: 11-08-2023 take 1 tablet by mouth three times daily magnesium oxide 400 mg Tab 400 mg = 1 tab(s), Oral, TID, Prophylaxis Start Date: 01/17/22 Status: Ordered Start: 07-01-2020 take 1 tablet by jacob th three times daily Magnesium Oxide 400 (241.3 Mg) MG Oral Tablet TAKE 1 TABLET BY MOUTH THREE TIMES DAILY Quantity: 90 Refills: 0 Ordered: 03-Mar-2021 DO Start : 01-Jul-2020 Active 24 hr metoprolol succinate 200 mg extended release oral tablet (9 sources) beta-Adrenergic Temo Start: 11-21-2022 take 1 tablet by mouth once daily metoprolol succinate XL (Toprol-XL) 200 MG 24 hr tablet Take 100 mg by mouth Daily 11/21/2022 Active Start: 11-21-2022 take 1 tablet by jacob th every twenty-four hours in the morning metoprolol [...] mg Tab mg tab(s), Oral, BID, Refills(s) 0, High blood pressure Start Date: 01/01/20 Status: Ordered mycophenolic acid 180 mg delayed release oral tablet (9 sources) Antimetabolite Immunosuppressant Start: 07-25-2023 take 3 tablets by mouth twice daily at bedtime mycophenolate (Myfortic) 180 MG EC tablet TAKE 3 TABLETS BY MOUTH TWICE DAILY IN THE MORNING AT BEDTIME 07/25/2023 Active Start: 12-14-2022 End: 06-12-2023 take 3 tablets by mouth in the morning mycophenolate (Myfortic) 180 MG EC tablet Indications: History of kidney transplant (CMS/HCC) Take 3 tablets (540 mg) by mouth in the morning and 3 tablets (540 mg) before bedtime. 540 tablet 1 12/14/2022 06/12/2023 Active Start: 02-03-2021 take 3 tablets by mo ut twice daily Mycophenolate Sodium 180 MG Oral Tablet Delayed Release TAKE 3 TABLET Twice daily Quantity: 0 Refills: 0 Ordered: 04-Apr-2021 DO Start : 03-Feb-2021 Active Start: 01-01-2020 take 1 mg by mouth twice daily mycophenolic acid 180 mg oral enteric coated tablet mg tab(s), Oral, BID, Refills(s) 0 Start Date: 01/01/20 Status: Ordered nitroglycerin 0.4 mg sublingual tablet (6 sources) Nitrate Vasodilator Start: 11-08-2022 End: 11-08-2023 nitroglycerin (Nitrostat) 0.4 MG SL tablet Indications: Coronary artery disease 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 ([facility]) Place 1 tablet (0.4 mg) under the tongue every 5 (five) minutes if needed for chest pain. 90 tablet 12 11/08/2022 Active Start: 10-26-2020 Nitroglycerin 0.4 MG Sublingual Tablet Sublingual PLACE 1 TABLET UNDER THE TONGUE EVERY 5 MINUTES UP TO 3 DOSES NEEDED FOR CHEST PAIN. Quantity: 25 Refills: 6 Ordered: 07-Dec-2020 DO Start : 26-Oct-2020 Active prasugrel 10 mg oral tablet (2 sources) P2Y12 Platelet Inhibitor Start: 01-01-2020 take 1 [...] Status: Ordered predniSONE 5 mg oral tablet (4 sources) Start: 01-17-2022 take 1 tablet by mouth once daily predniSONE (Deltasone) 5 MG tablet Indications: Kidney transplant status ([facility]) TAKE 1 TABLET BY MOUTH DAILY 90 tablet 0 03/14/2023 Active Start: 11-06-2020 take 1 tablet by jcaob th once daily predniSONE 5 MG Oral Tablet TAKE 1 TABLET DAILY. Quantity: 0 Refills: 0 Ordered: 04-Apr-2021 DO Start : 06-Nov-2020 Active 12 hr ranolazine 500 mg extended release oral tablet (8 sources) Anti-anginal Start: 01-17-2022 take 1 tablet by mouth twice daily ranolazine 500 mg oral ER Tab 500 mg = 1 tab(s), Oral, BID, Infection or prophylaxis for antibiotics Start Date: 01/17/22 Status: Ordered take 1 tablet by jacob th every twelve hours in the morning ranolazine (Ranexa) 500 MG 12 hr tablet Take 500 mg by mouth in the morning and 500 mg before bedtime. Do not crush, chew, or split. . Active sodium bicarbonate 325 mg oral tablet (2 sources) Start: 01-01-2020 take 1 tablet by mouth four times daily as needed sodium bicarbonate 325 mg Tab = 1 tab(s), Oral, QID, PRN for indigestion, # 30 tab(s), Refills(s) 0 Start Date: 01/01/20 Status: Ordered sucralfate 1000 mg oral tablet (2 sources) Aluminum Complex Start: 01-17-2022 take 1 tablet by mouth three times daily sucralfate 1 g Tab 1 gm = 1 tab(s), Oral, TID Start Date: 01/17/22 Status: Ordered Bactrim (2 sources) Dihydrofolate Reductase Inhibitor Antibacterial, Sulfonamide Antimicrobial Start: 01-01-2020 Bactrim Oral, q12hr, Refill(s) 0 Start Date: 01/01/20 Status: Ordered tacrolimus 0.5 mg oral capsule (9 sources) Calcineurin Inhibitor Immunosuppressant Start: 07-19-2023 take 1 capsule by mouth once daily tacrolimus (Prograf) 1 MG capsule Take 1 mg by mouth Daily 07/19/2023 Active Start: 11-08-2022 End: 11-08-2023 take 1 capsule by mouth in the morning tacrolimus (Prograf) 0.5 MG capsule Take 0.5 mg by mouth in the morning and 0.5 mg before bedtime. 07/19/2023 Active Start: 07-01-2020 Tacrolimus 1 M G Oral Capsule TAKE DIRECTED. Quantity: 0 Refills: 0 Ordered: 04-Apr-2021 DO Start : 01-Jul-2020 Active Start: 01-01-2020 tacrolimus 1 m g, Refills(s) 0, Other (see comment) Start Date: 01/01/20 Status: Ordered Start: 01-01-2020 tacrolimus 1 m g, Refills(s) 0 Start Date: 01/01/20 Status: Ordered valACYclovir 1000 mg oral tablet (1 source) Herpesvirus Nucleoside Analog DNA Polymerase Inhibitor, Herpes Simplex Virus Nucleoside Analog DNA Polymerase Inhibitor, Herpes Zoster Virus Nucleoside Analog DNA Polymerase Inhibitor Start: 01-29-2024 End: 02-05-2024 take 1 tablet by mouth in the morning, then take 1 tablet by mouth in the evening, then take 1 tablet by mouth at bedtime valACYclovir (Valtrex) 1 g tablet Indications: Herpes zoster with complication Take 1 tablet (1,000 mg) by mouth in the morning and 1 tablet (1,000 mg) in the evening and 1 tablet (1,000 mg) before bedtime. Do all this for 7 days. 21 tablet 01/29/2024 02/05/2024 Active valGANciclovir 450 mg oral tablet (2 sources) Start: 01-01-2020 take 1 mg by mouth once daily valganciclovir 450 mg oral tablet mg tab(s), Oral, Daily, Refills(s) 0 Start Date: 01/01/20 Status: Ordered Completed/Discontinued Medications Medication Drug Class(es) Dates Sig (Normalized) Sig (Original) aspirin 81 mg chewable tablet (9 sources) Platelet Aggregation Inhibitor, Nonsteroidal Anti-inflammatory Drug [...] 81 mg by mouth in the morning. Active Problems Active Problems Problem Classification Problem Date Documented Date Episodic/Chronic Acute and unspecified renal failure (8 sources) Renal failure syndrome; Translations: [Unspecified kidney failure] Onset: 3 01-01-2020 Chronic Acute myocardial infarction (13 sources) Myocardial infarction; Translations: [Acute non-ST segment elevation myocardial infarction] Onset: 3 01-17-2022 Chronic Cardiac arrest and ventricular fibrillation (5 sources) Ventricular fibrillation; Translations: [Cardiac arrest] Onset: 4 07-27-2023 Chronic Cardiac dysrhythmias (5 sources) Ventricular tachycardia; Translations: [Ventricular tachycardia] Onset: 3 11-08-2022 Chronic Cataract (15 sources) Age-related nuclear cataract of left eye; Translations: [Age-related nuclear cataract, left eye] Onset: 3 10-25-2022 Chronic Chronic kidney disease (16 sources) Kidney transplant status; Translations: [Chronic kidney disease stage 3] Onset: 0 Chronic Chronic obstructive pulmonary disease and bronchiectasis (6 sources) Chronic obstructive lung disease; Translations: [Chronic obstructive pulmonary disease, unspecified] Onset: 3 02-02-2023 Chronic Complication of device; implant or graft (1 source) Arteriosclerosis of coronary artery bypass graft; Translations: [Atherosclerosis of coronary artery bypass graft(s) without angina pectoris] Onset: 4 Chronic Conduction disorders (3 sources) Automatic implantable cardiac defibrillator in situ; Translations: [Automatic implantable cardiac defibrillator in situ] Onset: 4 Chronic Congestive heart failure; nonhypertensive (8 sources) Chronic systolic heart failure; Translations: [Chronic systolic (congestive) heart failure] Onset: 3 11-08-2022 Chronic Coronary atherosclerosis and other heart disease (15 sources) Coronary atherosclerosis; Translations: [Coronary atherosclerosis of [place] coronary artery] Onset: 2 Chronic Deficiency and other anemia (5 sources) Increased hemoglobin; Translations: [Other hemoglobinopathies] Onset: 3 11-08-2022 Chronic Diabetes mellitus without complication (5 sources) Type 2 diabetes mellitus without complication; Translations: [Type 2 diabetes mellitus without complications] Onset: 4 01-26-2024 Chronic Disorders of lipid metabolism (14 sources) Hyperlipidemia; Translations: [Other and unspecified hyperlipidemia] Onset: 3 01-01-2020 Chronic Esophageal disorders (9 sources) Gastroesophageal reflux disease; Translations: [Gastro-esophageal reflux disease without esophagitis] Onset: 0 11-08-2022 Chronic Essential hypertension (15 sources) Hypertensive disorder; Translations: [Essential hypertension] Onset: 2 01-01-2020 Chronic Genitourinary congenital anomalies (12 sources) Autosomal dominant polycystic kidney disease; Translations: [Polycystic kidney, adult type] Onset: 3 11-08-2022 Chronic Genitourinary congenital anomalies (1 source) H/O: congenital anomaly; Translations: [Personal history of other specified (corrected) congenital malformations of genitourinary system] Onset: 2 Episodic Gout and other crystal arthropathies (10 sources) 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; Translations: [Chronic gout due to renal impairment, multiple sites, without tophus (tophi)] Onset: 2 11-08-2022 Chronic Hyperplasia of prostate (14 sources) Benign prostatic hypertrophy with outflow obstruction; Translations: [Benign prostatic hyperplasia with lower urinary tract symptoms] Onset: 2 Chronic Immunity disorders (8 sources) Immunosuppression; Translations: [Immunodeficiency, unspecified] Onset: 3 11-08-2022 Chronic Immunizations and screening for infectious disease (2 sources) Patient encounter status; Translations: [Encounter for immunization] 01-26-2024 Episodic Mycoses (2 sources) Tinea corporis; Translations: [Tinea corporis] 01-26-2024 Episodic Nonspecific chest pain (6 sources) Chest pain; Translations: [Chest pain, unspecified] Onset: 4 07-27-2023 Episodic Nutritional deficiencies (5 sources) Active rickets; Translations: [Rickets, active] Onset: 3 Resolved: 4 11-08-2022 Chronic Other aftercare (5 sources) Transplant follow-up; Translations: [Encounter for aftercare following other organ transplant] Onset: 3 11-08-2022 Chronic Other aftercare (2 sources) Encounter for aftercare following other organ transplant; Translations: [Encounter for aftercare following other organ transplant] Onset: 3 Chronic Other and unspecified benign neoplasm (3 sources) History of polyp of colon; Translations: [Personal history of colonic polyps] Onset: 4 Episodic Other and unspecified benign neoplasm (1 source) Polyp of colon; Translations: [Polyp of colon] Onset: 4 Episodic Other endocrine disorders (5 sources) Male hypogonadism; Translations: [Testicular hypofunction] Onset: 3 11-08-2022 Chronic Other nervous system disorders (5 sources) Neuropathy; Translations: [Polyneuropathy, unspecified] Onset: 3 11-08-2022 Chronic Other nutritional; endocrine; and metabolic disorders (5 sources) Hypervitaminosis A; 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] Onset: 3 11-08-2022 Chronic Other screening for suspected conditions (not mental disorders or infectious disease) (5 sources) Abnormal electrocardiogram [ECG] [EKG]; Translations: [Screening for malignant neoplasm of colon done] Onset: 3 Episodic [place]a-; endo-; and myocarditis; cardiomyopathy (except that caused by tuberculosis or sexually transmitted disease) (1 source) Cardiomyopathy; Translations: [Cardiomyopathy, unspecified] 01-29-2024 Chronic Screening and history of mental health and substance abuse codes (1 source) Ex-smoker; Translations: [Personal history of tobacco use] Episodic Comment on above: Quit in 2008; Unclassified (2 sources) Patient encounter status 12-22-2023 Unclassified (2 sources) Kidney Follow-up; Translations: [Kidney Follow-up] Onset: Viral infection (1 source) Herpes zoster; Translations: [Zoster with other complications] 01-29-2024 Episodic Past or Other Problems Problem Classification Problem Date Documented Date Episodic/Chronic Acute bronchitis (5 sources) Acute bronchitis; Translations: [Acute bronchitis, unspecified] Onset: 03-28-2013 02-02-2023 Episodic Diabetes mellitus without complication (6 sources) Impaired fasting glycemia; Translations: [Impaired fasting glucose] Onset: 02-27-2023 07-27-2023 Episodic Fluid and electrolyte disorders (12 sources) Disorder of electrolytes; Translations: [Other disorders of electrolyte and fluid balance, not elsewhere classified] Onset: 05-04-2022 11-08-2022 Episodic Genitourinary symptoms and ill-defined conditions (20 sources) Nocturia; Translations: [Nocturia] Onset: 01-17-2022 Episodic Mood disorders (5 sources) Mood disorders Onset: 11-08-2022 11-08-2022 Other hematologic conditions (5 sources) Red blood cell disorder; Translations: [Other abnormality of red blood cells] Onset: 11-08-2022 11-08-2022 Episodic Other lower respiratory disease (5 sources) Other forms of dyspnea; Translations: [Other respiratory abnormalities] Onset: 10-24-2022 02-02-2023 Episodic Other upper respiratory infections (5 sources) Upper respiratory infection; Translations: [Acute upper respiratory infection, unspecified] Onset: 11-08-2022 11-08-2022 Episodic Residual codes; unclassified (5 sources) At risk for infection; Translations: [Personal history of immunosupression therapy] Onset: 12-30-2019 02-02-2023 Episodic Urinary tract infections (5 sources) Pyelonephritis; Translations: [Tubulo-interstitial nephritis, not specified as acute or chronic] Onset: 12-09-2009 11-08-2022 Episodic Results Test Name Value Interpretation Reference Range Facility 36on 01-29-2024 36 Transplant Pharmacis t - Drug Information The patient's outside provider contacted pharmacist regarding the use of Valtrex for shingles. No concerns with drug interactions or CrCl (most recent 74 mL/min and no renal adjustment for CrCl over 50 mL/min). Notified nurse coordinators to see if patient should decrease IS. The doctor's office verbalized understanding. The pharmacy team will sign off at this time. Guero Lee, AlexandreD, BCPS Solid Organ Transplant Clinical Pharmacist [facility] Telephoneon 01-29-2024 Telephone [phone] Vishal Duke 1960 [facility] Provider Department [place] 01/29/2024 [id number] LEE TXP None Family History Problem Relation Age of Onset Alzheimer's disease Mother Coronary artery disease Father Family Status - Relation Status Age at Mother Father Reason for Visit and Comments: Transplant Pharmacist - Drug Information [[id number]] [facility] MHPT PSA, DIAGNOSTICon 01-24 PROSTATE SPECIFIC ANTIGEN DX 0.91 ng/mL NINF - 4.00 ng/mL [facility] Healthcare Result Letter Officeon 01-22 Result Letter Office Result Letter Offic e January 23, 2024 VISHAL DUKE [address] [place] [address] : 1960 Below is a summary of the results of your recent colonoscopy. Your results have been sent to your primary care provider along with recommendations on when the procedure should be repeated. COLONOSCOPY WITH POLYP REMOVAL OR BIOPSY Type of polyp tubular adenoma x 1 - not cancer but can become cancer if not removed. Additional colonoscopies will be necessary to monitor your condition and assure that new polyps have not developed. Based on your results we are recommending you repeat the procedure in 7 years You will be placed in our reminder system and will receive a reminder letter prior to your next due date. [place] [phone] [facility] Surgical Pathology Reporton 01-17-2024 Surgical Pathology Report [facility] [address] [place] [address]- Surgical Pathology Report Collected Date/Time: 01/11/2024 09:34 EDT Pathologist: Demond FRANK PhD, Karla Nielson Received Date/Time: 01/11/2024 11:19 EDT Gladys FRANK, Xochilt Graham MD, Xochilt Butler 07 Surgical Pathology Report - 01/17/2024 16:44 EDT - Auth (Verified) Final Diagnosis A: ANTRUM, BIOPSY: - ANTRAL MUCOSA WITH MILD CHRONIC INACTIVE GASTRITIS, COMPATIBLE WITH REACTIVE GASTROPATHY. - NO INTESTINAL METAPLASIA IDENTIFIED. - NO H. PYLORI MICROORGANISMS IDENTIFIED WITH IMMUNOSTAIN. B: POLYP, DUODENUM, POLYPECTOMY: - DUODENAL MUCOSA WITH NO SIGNIFICANT PATHOLOGIC CHANGES. C: POLYP, DESCENDING COLON, POLYPECTOMY: - COLONIC MUCOSA WITH HYPERPLASTIC CHANGES AND LYMPHOID AGGREGATES. D: POLYP, RECTUM, POLYPECTOMY: - TUBULAR ADENOMA. (Electronic Signature) Karla Lagos MD PhD 01/17/2024 16:44 Clinical Information Screening, history of colon polyps, chronic GERD Pre-Op Diagnosis: Screening, history of colon polyps, chronic GERD Procedure: EGD, colonoscopy Post-Op Diagnosis: 1. Esophageal landmarks identified, very small hiatal hernia, otherwise normal examined esophagus 2. Flat lesion, about 1 cm in size, in the antrum of the stomach suggestive of intestinal metaplasia, biopsied. Otherwise normal examined stomach 3. 5 mm sessile polyp in the duodenal bulb, removed with cold biopsy forceps completely and retrieved. Otherwise normal examined duodenum 4. Normal rectal exam 5. 2 sessile polyps in the descending colon and rectum, 5 mm in size, resected with cold snare completely and retrieved 6. Normal examined terminal ileum Specimen(s) Received A.Antral biopsy B.Duodenal polyp C.Descending colon polyp D.Rectal polyp Gross Description A: Received in formalin labeled with patient name, number, and antral biopsy is a single fragment of garcia/pink tissue measuring 0.3 x 0.2 x 0.1 cm. Specimen is entirely submitted in one cassette. B: Received in formalin labeled with patient name, number, and duodenal polyp is a single fragment of garcia/pink tissue measuring 0.1 x 0.1 x 0.1 cm. Specimen is entirely submitted in one cassette. Surgical Pathology Report Collected Date/Time: 01/11/2024 09:34 EDT Pathologist: Demond FRANK PhD, Karla Nielson Received Date/Time: 01/11/2024 11:19 EDT Gladys FRANK, Xochilt Graham MD, Xochilt Butler Gross Description C: Received in formalin labeled with patient name, number, and descending colon polyp is a single fragment of garcia/pink tissue measuring 0.9 x 0.5 x 0.1 cm. Specimen is entirely submitted in one cassette. D: Received in formalin labeled with patient name, number, and rectal polyp is a single fragment of garcia/pink tissue measuring 0.4 x 0.2 x 0.1 cm. The specimen is entirely submitted in one cassette. (DC) DC:MCA Microscopic Description Microscopic examination performed unless gross only specified. The use of one or more reagents in the above tests is regulated as an analyte specific reagent (ASR). The test or tests are ordered following initial H&E microscopic examination. The performance characteristics were determined by the [facility] of [facility]. They have not been cleared or approved by the US Food and Drug Administration. The FDA has determined that such clearance or approval is not necessary. These tests are used for clinical purposes. They should not be regarded as investigational or for research. Appropriate positive and negative controls are performed and are acceptable. Normal [facility] Comment on above: Performed By: #### [id number] #### [facility] [address] [place] [address] Main OR Intraoperative Recor don 01-12-2024 Main OR Intraoperative Record Main OR Intraoperative Record IntraOp Document Type FT Summary Primary Physician: Xochilt Graham MD Finalized Date/Time: 01/12/24 11:15:33 Pt. Name: VISHAL DUKE/Sex: 1960 Male Med Rec #: [id number] Physician: Gladys FRANK, Xochilt Butler Financial #: [id number] Pt. Type: O Room/Bed: / Admit/Disch: 01/11/24 08:13:18 - 01/11/24 23:59:59 Institution: Case Times FT Entry 1 Patient Times In Room 01/11/24 09:24:00 Out Room 01/11/24 10:08:00 Procedure Times Start 01/11/24 09:30:00 Stop 01/11/24 10:04:00 Anesthesia Times Start 01/11/24 09:24:00 Stop 01/11/24 10:08:00 Time at [facility] 01/11/24 09:47:00 Last Modified By: Nicky GODWIN, Karlene 01/11/24 10:09:03 General Comments: 935-EGD completed/AW RN 0939-Colonoscopy started/AW RN 01/12/24 Chart opened for charge review per Dmitriy Lee RN. [place] Case Attendance FT Entry 1 Entry 2 Entry 3 Case Attendee Nick MONTEMAYOR, HOTSHOT SUPERINTENDENT, Queen Nicky GODWIN, Monie Guzman Role Performed HOTSHOT SUPERINTENDENT Metal Spraying Machine Operator - Primary Scrub - Primary Time In 01/11/24 09:37:00 01/11/24 09:24:00 01/11/24 09:24:00 Time Out 01/11/24 10:08:00 01/11/24 10:08:00 01/11/24 10:08:00 Procedure EGD AND COLONOSCOPY(.) EGD AND COLONOSCOPY(.) EGD AND COLONOSCOPY(.) Comments Dr. Orozco supervising Last Modified By: Nicky GODWIN, Karlene Saunders RN, Karlene Seth RN 01/11/24 10:09:04 01/11/24 10:09:04 01/11/24 10:09:04 Entry 4 Entry 5 Entry 6 Case Attendee Nikunj HENRY, Hanh Graham MD, Xochilt Infante CRNA, Belinda Butler Role Performed Staff - Other Surgeon - Primary HOTSHOT SUPERINTENDENT Time In 01/11/24 09:34:00 01/11/24 09:24:00 01/11/24 09:24:00 Time Out 01/11/24 10:08:00 01/11/24 10:08:00 01/11/24 09:38:00 Procedure EGD AND COLONOSCOPY(.) EGD AND COLONOSCOPY(.) EGD AND COLONOSCOPY(.) Comments help in room Dr. Orozco supervising Last Modified By: Karlene Saunders RN, RN, Angela Workman RN, Angela 01/11/24 10:09:04 01/11/24 10:09:04 01/11/24 10:09:04 Perioperative Protocols FT Pre-Care Text: Implements protective measures prior to operative or invasive procedure, confirms identity before the operative or invasive procedure, verifies operative procedure, surgical site, and laterality Entry 1 Procedure(s) EGD AND COLONOSCOPY(.) Patient Identity Birthday, ID Band Verified (select at Check, Patient least 2): Participation Consents / H and P Anesthesia Consent, Operative Site N/A Verified H&P, Surgery/Procedure Marking Verified Consent Surgical Site No Laterality Verified n/a Verified Procedure Verified Yes Correct Patient Yes Position Verified Availability Equipment, Medication Prep Dry n/a Verified (If Applicable) PreOp Antibiotic No Time Out Karlene Saunders RN, Given Participants Monie Mehta Sarmini MD, Arelis Saez CRNA, Brandy J. Time Out Complete 01/11/24 09:27:00 Outcomes Met? Yes Last Modified By: Karlene Saunders RN 01/11/24 09:33:58 Post-Care Text: The patient is free from signs and symptoms of injury caused by extraneous objects Allergy Information FT Pre-Care Text: Verifies allergies Entry 1 Allergies Reviewed? Yes Allergies Reviewed Self/Patient With Outcomes Met? Yes Last Modified By: Karlene Saunders RN 01/11/24 09:34:05 Post-Care Text: The patient received appropriate medication(s) safely administered during the perioperative period Surgical Procedures FT Entry 1 Procedure Description Procedure EGD AND COLONOSCOPY Modifiers . Surgeon Description EGD with duodenal polypectomy using biopsy forceps and antral biopsy. Colonoscopy with descending colon polypectomy with hemoclip x1 applied to site, rectal polypectomy with hemoclip x1 to site. Primary Procedure Yes Primary Surgeon Gladys FRANK, Xochilt Butler Start 01/11/24 09:30:00 Stop 01/11/24 10:04:00 Anesthesia Type General Surgical Service Gastroenterology Wound Class 2 - Clean-Contaminated Last Modified By: Karlene Saunders RN 01/11/24 10:05:15 General Case Data FT Pre-Care Text: Classifies surgical wound, implements aseptic technique, initiates traffic control Entry 1 Case Information OR ENDO 1 FT Case Level Level 2 Wound Class 2 - Clean-Contaminated Specialty Gastroenterology ASA Class 3 Preop Diagnosis SCREEN FOR COLON Postop Same As Preop No CANCER, HISTORY OF COLON POLYPS, CHRONIC GERD, CAD OF BYPASS GRAFT, KIDNEY TRANSPLANT Postop Diagnosis EGD- duodenal polyp, Outcomes Met? Yes hiatal hernia, 1cm flat lesion in the antrum. Colonoscopy-2cm lipoma in ascending colon, descending colon polyp, rectal polyp Last Modified By: Nicky GODWIN, Karlene 01/11/24 10:03:09 Post-Care Text: The patient is free from signs and symptoms of infection Skin Assessment (Pre Procedure) FT Pre-Care Text: Implements protective measures to prevent skin/ tissue injury due to thermal or mechanical sources Evaluates for signs and symptoms of physic (more content not included)... Normal [facility] Discharge Instructionson Discharge Instructions Discharge Instructions VISHAL DUKE :1960 Visit Date:01/11/2024 Inpatient Discharge Instructions Your Care Team Admitting Physician - Xochilt Graham MD Referring Physician - Xochilt Graham MD Reason for Your Visit SCREEN FOR COLON CANCER, HISTORY OF COLON POLYPS, CHRONIC GERD, CAD OF BYPASS GRAFT, KIDNEY TRANSPLANT Your Diagnosis Chronic GERD Colon polyps Tests Performed Pathology Tissue Exam -- Results Pending -- Please visit your patient portal for your results or contact your primary care physician. This Is Your Medications List aspirin (aspirin 81 mg oral tablet) atorvastatin (atorvastatin 80 mg Tab) clopidogrel (clopidogrel 75 mg Tab) clotrimazole (clotrimazole 10 mg Jennifer) esomeprazole (Nexium 40 mg Cap-EC) famotidine (famotidine 40 mg Tab) isosorbide mononitrate (isosorbide mononitrate 60 mg ER Tab) lisinopril (lisinopril 5 mg Tab) magnesium oxide (magnesium oxide 400 mg Tab) metoprolol (Metoprolol tartrate 50 mg Tab) mycophenolic acid (mycophenolic acid 180 mg oral enteric coated tablet) ranolazine (ranolazine 500 mg oral ER Tab) tacrolimus Procedure History Colonoscopy (01/11/2024), Kidney transplant (01/01/2018), Bilateral vasectomy, Colonoscopy, Placement of stent in cardiac conduit, Triple coronary bypass. What to do next Instructions From Your Doctor Event Name Event Result Discharge Activity Resume normal activities in 24 hours Discharge Restrictions No driving for 24 hrs Discharge Diet(s) Regular Call Your Doctor For Persistent or heavy bleeding Discharge Instructions Discharge Instructions Previously Scheduled Follow-Up Appointments Monday 10:30 AM EDT With: LEONARDA FRANK, Reji Farrell Where: [facility] [address] [place] [address] [place] [address]- New Follow Up Appointments after Discharge Follow Up with Gladys FRANK, JIN Saez, [facility] When: Comments: Call for any problems. Office will call to schedule follow up appointment Where: Medications What How Much When Why Instructions Next Dose Unchanged aspirin (aspirin 81 mg oral tablet) By Mouth Every day Unchanged atorvastatin (atorvastatin 80 mg Tab) 1 Tablets By Mouth Every day Unchanged clopidogrel (clopidogrel 75 mg Tab) 1 Tablets By Mouth Every day Unchanged clotrimazole (clotrimazole 10 mg Jennifer) By Mouth 5 times a day Unchanged esomeprazole (Nexium 40 mg Cap-EC) 1 Capsules By Mouth Every day Unchanged famotidine (famotidine 40 mg Tab) 1 Tablets By Mouth Once a day (at bedtime) Screen for colon cancer History of colon polyps Kidney transplanted CAD (coronary artery disease) of bypass graft Chronic GERD Unchanged isosorbide mononitrate (isosorbide mononitrate 60 mg ER Tab) 1 Tablets By Mouth Once a day (in the morning) Unchanged lisinopril (lisinopril 5 mg Tab) By Mouth Every day Unchanged magnesium oxide (magnesium oxide 400 mg Tab) 1 Tablets By Mouth 3 times a day Unchanged metoprolol (Metoprolol tartrate 50 mg Tab) By Mouth 2 times a day Unchanged mycophenolic acid (mycophenolic acid 180 mg oral enteric coated tablet) By Mouth 2 times a day Unchanged ranolazine (ranolazine 500 mg oral ER Tab) 1 Tablets By Mouth 2 times a day Unchanged tacrolimus 1 Milligram Test Results No qualifying data available. Allergies No Known Allergies Problems Ongoing - Any problem that you are currently receiving treatment for. BPH with urinary obstruction History of colon polyps Hyperlipidemia Hypertension Kidney transplanted Microhematuria Myocardial infarct Nocturia polycystic kidney disease Renal failure Screen for colon cancer Education Materials Hiatal Hernia A hiatal hernia occurs when part of the stomach slides above the muscle that separates the abdomen from the chest (diaphragm). A person can be born with a hiatal hernia (congenital), or it may develop over time. In almost all cases of hiatal hernia, only the top part of the stomach pushes through the diaphragm. Many people have a hiatal hernia with no symptoms. The larger the hernia, the more likely it is that you will have symptoms. In some cases, a hiatal hernia allows stomach acid to flow back into the tube that carries food from your mouth to your stomach (esophagus). This may cause heartburn symptoms. The development of heartburn symptoms may mean that you have a condition called gastroesophageal reflux disease (GERD). What are the causes? This condition is caused by a weakness in the opening (hiatus) where the esophagus passes through the diaphragm to attach to the upper part of the stomach. A person may be born with a weakness in the hiatus, or a weakness can develop over time. What increases the risk? This condition is more likely to develop in: ? Older people. Age is a major risk factor for a hiatal hernia, especially if you are over the a (more content not included)... Normal [facility] Comment on above: Result Comment: Elec tronically Signed By: Maria Victoria Zaman I\.br\Date and Time Signed: 01/11/24 10:21 EDT Inpatient Patient Summaryon 01-11-2024 Inpatient Patient Summary Inpatient Patient Summary [place] [id number] [facility] Clinical Discharge Instructions PERSON INFORMATION Name: VISHAL DKUE PHYSICIANS Admitting Physician: Gladys FRANK, Xochilt Butler Attending Physician: Xochilt Graham MD PCP: ROSA M GONZALES MD Discharge Diagnosis: Chronic GERD; Colon polyps Comment: PATIENT EDUCATION INFORMATION Instructions: Medication Leaflets: Follow up: Type Location Start Finish State [facility] Office Visit [facility] 01/29/2024 10:30 AM 01/29/2024 10:45 AM Confirmed MEDICATION LIST Medications to Continue with No Changes Other Medications aspirin (aspirin 81 mg oral tablet) By Mouth every day. atorvastatin (atorvastatin 80 mg Tab) 1 Tablets By Mouth every day. clopidogrel (clopidogrel 75 mg Tab) 1 Tablets By Mouth every day. clotrimazole (clotrimazole 10 mg Jennifer) By Mouth 5 times a day. esomeprazole (Nexium 40 mg Cap-EC) 1 Capsules By Mouth every day. famotidine (famotidine 40 mg Tab) 1 Tablets By Mouth once a day (at bedtime). Refills: 0. isosorbide mononitrate (isosorbide mononitrate 60 mg ER Tab) 1 Tablets By Mouth once a day (in the morning). lisinopril (lisinopril 5 mg Tab) By Mouth every day. magnesium oxide (magnesium oxide 400 mg Tab) 1 Tablets By Mouth 3 times a day. metoprolol (Metoprolol tartrate 50 mg Tab) By Mouth 2 times a day. mycophenolic acid (mycophenolic acid 180 mg oral enteric coated tablet) By Mouth 2 times a day. ranolazine (ranolazine 500 mg oral ER Tab) 1 Tablets By Mouth 2 times a day. tacrolimus 1 Milligram. Comment: Nida [facility] Main OR PACU II Recordon Main OR PACU II Record Main OR PACU II Record PACU Phase II Document Type FT Summary Primary Physician: Xochilt Graham MD Finalized Date/Time: 01/11/24 10:56:37 Pt. Name: VISHAL DUKE/Sex: 1960 Male Med Rec #: [id number] Physician: Xochilt Graham MD Financial #: [id number] Pt. Type: O Room/Bed: / Admit/Disch: 01/11/24 08:13:18 - Institution: Case Times PACU II FT Pre-Care Text: Identifies barriers to communication and implements measures to provide psychological support and determines knowledge level Develops individualized plan of care, and ensures continuity of care Maintains patient's dignity and privacy, and maintains patient confidentiality Identifies and reports philosophical, cultural, and spiritual beliefs and values Identifies individual values and wishes concerning care administers prescribed antibiotic therapy and immunizing agents as ordered, Evaluates postoperative tissue perfusion Implements thermoregulation measures, and monitors body temperature Evaluates postoperative respiratory status Evaluates postoperative cardiac status Evaluates postoperative neurological status Assesses pain control, collaborated in initiating patient-controlled analgesia and implements alternative methods of pain control Verifies allergies, administers prescribed medications and solutions, evaluates response to medications Entry 1 In PACU II 01/11/24 10:10:00 Discharge from PACU 01/11/24 10:40:00 II Outcomes Met? Yes Last Modified By: Maria Victoria Zaman I 01/11/24 10:56:31 Post-Care Text: The patient demonstrates knowledge of the expected response to the operative or invasive procedure The patient's care is consistent with the individualized perioperative plan of care The patient's right to privacy is maintained The patient's value system, lifestyle, ethnicity, and culture are considered, respected, and incorporated into the perioperative plan of care The patient participates in decisions affecting his or her perioperative plan of care. The patient is free from signs and symptoms of infection The patient has wound/tissue perfusion consistent with or improved from baseline levels established preoperatively The patient is at or returning to normothermia at the conclusion of the immediate postoperative period The patient's respiratory function is consistent with or improved from baseline levels established preoperatively The patient's cardiovascular status is consistent with or improved from baseline levels established preoperatively The patient's neurological status is consistent with or improved from baseline levels established preoperatively The patient demonstrates and/or reports adequate pain control throughout the perioperative period The patient received appropriate medication(s), safely administered during the perioperative period Finalized By: Maria Victoria Zaman I Document Signatures Signed By: Maria Victoria Zaman I 01/11/24 10:56 [facility] Main OR Preoperative Recordo n 01-11-2024 Main OR Preoperative Record Main OR Preoperative Record Holding Area Document Type FT Summary Primary Physician: Xochilt Graham MD Finalized Date/Time: 01/11/24 09:12:50 Pt. Name: VISHAL DUKE./Sex: 1960 Male Med Rec #: [id number] Physician: Xochilt Graham MD Financial #: [id number] Pt. Type: O Room/Bed: / Admit/Disch: 01/11/24 08:13:18 - Institution: Case Times Holding FT Pre-Care Text: Verifies consent for planned procedure, identifies individual values and wishes concerning care, includes family members in perioperative teaching Secures patient's records' belongings, and valuables, maintains patient's dignity and privacy, and maintains patient confidentiality Entry 1 In Holding 01/11/24 08:35:00 Outcomes Met? Yes Last Modified By: Stacey Hamilton RN 01/11/24 09:10:29 Post-Care Text: The patient participates in decisions affecting his or her perioperative plan of care The patient's right to privacy is maintained Surgery Checklist FT Entry 1 Patient Birthday, ID Band Procedure History and Physical, Identification: Check, Patient Verification: Surgical Consent, With Participation Patient NPO after Midnight: Yes Results Reviewed Clear/yellow Comments: Personal Items: Cataract Lens Implant, Personal Items Bilat IOL, necklace, 7 Defibrilator, Jewelry, Comment: heart stents, fistula L Pacemaker arm, pacer/defib Limitations: Vision Complaints of Pain: No Pain Comment: Denies Operative Site n/a Marking: Availability Equipment Verified: Does Patient Smoke No Patient states Yes Comment - Adult - Rosaura postop adult Supervision supervision available Case Cancelled in No Holding Area see comments below for reason Last Modified By: Stacey Hamilton RN 01/11/24 09:12:39 General Comments: Pt completed prep 0400 and remained NPO since/ABENARN Finalized By: Stacey Hamilton RN Document Signatures Signed By: Stacey Hamilton RN 01/11/24 09:[address] [facility] Outpatient Surgery Discharge Instructionon 01-11-2024 Outpatient Surgery Discharge Instruction Outpatient Surgery Discharge Instruction [address] [address] Patient Discharge Instructions PERSON INFORMATION Name: VISHAL DUKE Date of : 1960 Current Date: 01/11/2024 09:28:53 PHYSICIANS Admitting Physician: Xochilt Graham MD Discharge Diagnosis: Chronic GERD; Colon polyps VISHAL DUKE has been given the following list of follow-up instructions, prescriptions, and patient education materials: PATIENT FOLLOW-UP INFORMATION Diet: Regular Discharge Activity: Resume normal activities in 24 hours Discharge Restrictions: No driving for 24 hrs Call Your Doctor For: Persistent or heavy bleeding IF UNABLE TO CONTACT YOUR PHYSICIAN AND YOU FEEL IT IS AN EMERGENCY, GO TO THE NEAREST EMERGENCY ROOM OR CALL 911 I, VISHAL DUKE, have received the attached patient education materials/instructions and have verbalized understanding: May we do a follow up call? Yes No I was present when discharge instructions were given Patient Signature Date Clinican/Nurse Signature _ Date Follow up: Type Location Start Finish State [facility] Office Visit [facility] [place] 01/29/2024 10:30 AM 01/29/2024 10:45 AM Confirmed Pharmacy Information: You may receive a survey from Gladys Miner asking you to rate your care experience. Your feedback is important and will help us understand what we do well and how we can improve the quality of care we provide to you, your loved ones and our community. It?s an honor to serve you. Thank you for choosing [facility] HERE ARE THE MEDICATION CHANGES THAT OCCURRED DURING YOUR HOSPITAL STAY Medications to Continue with No Changes Other Medications aspirin (aspirin 81 mg oral tablet) By Mouth every day. atorvastatin (atorvastatin 80 mg Tab) 1 Tablets By Mouth every day. clopidogrel (clopidogrel 75 mg Tab) 1 Tablets By Mouth every day. clotrimazole (clotrimazole 10 mg Jennifer) By Mouth 5 times a day. esomeprazole (Nexium 40 mg Cap-EC) 1 Capsules By Mouth every day. famotidine (famotidine 40 mg Tab) 1 Tablets By Mouth once a day (at bedtime). Refills: 0. isosorbide mononitrate (isosorbide mononitrate 60 mg ER Tab) 1 Tablets By Mouth once a day (in the morning). lisinopril (lisinopril 5 mg Tab) By Mouth every day. magnesium oxide (magnesium oxide 400 mg Tab) 1 Tablets By Mouth 3 times a day. metoprolol (Metoprolol tartrate 50 mg Tab) By Mouth 2 times a day. mycophenolic acid (mycophenolic acid 180 mg oral enteric coated tablet) By Mouth 2 times a day. ranolazine (ranolazine 500 mg oral ER Tab) 1 Tablets By Mouth 2 times a day. tacrolimus 1 Milligram. PATIENT EDUCATION INFORMATION Instructions: Medication Leaflets: [facility] Ambulatory Visit Summaryon 0 12-25-2023 Ambulatory Visit Summary Ambulatory Visit Summary VISHAL DUKE :1960 Visit Date:02/02/2023 Ambulatory Visit Instructions Your Care Team Attending Physician - Gladys FRANK, Xochilt Butler Primary Care Physician - JANET FRANK, ROSA M Palomino This Is Your Medications List aspirin (aspirin 81 mg oral tablet) atorvastatin (atorvastatin 80 mg Tab) clopidogrel (clopidogrel 75 mg Tab) clotrimazole (clotrimazole 10 mg Jennifer) dapagliflozin (Farxiga 10 mg oral tablet) famotidine (famotidine 40 mg Tab) lisinopril (lisinopril 5 mg Tab) magnesium amino acids chelate magnesium oxide (magnesium oxide 400 mg Tab) metoprolol (Metoprolol tartrate 50 mg Tab) mycophenolic acid (mycophenolic acid 180 mg oral enteric coated tablet) prasugrel (Effient 10 mg Tab) predniSONE (predniSONE 5 mg Tab) ranolazine (ranolazine 500 mg oral ER Tab) sodium bicarbonate (sodium bicarbonate 325 mg Tab) sucralfate (sucralfate 1 g Tab) sulfamethoxazole-trimet hoprim (Bactrim) tacrolimus valganciclovir (valganciclovir 450 mg oral tablet) Procedures Performed Kidney transplant (01/01/2018), Bilateral vasectomy, Colonoscopy, Placement of stent in cardiac conduit, Triple coronary bypass. What to do next Scheduled Follow-Up Appointments 2023 10:00 AM EDT With: Where: [facility] Surgical Services Monday 10:30 AM EDT With: LEONARDA FRANK, Reji Farrell Where: [facility] [address] [address]- Medications What How Much When Why Instructions Unchanged aspirin (aspirin 81 mg oral tablet) By Mouth Every day Unchanged atorvastatin (atorvastatin 80 mg Tab) 1 Tablets By Mouth Every day Unchanged clopidogrel (clopidogrel 75 mg Tab) 1 Tablets By Mouth Every day Unchanged clotrimazole (clotrimazole 10 mg Jennifer) By Mouth 5 times a day Unchanged dapagliflozin (Farxiga 10 mg oral tablet) 1 Tablets By Mouth Every day Unchanged famotidine (famotidine 40 mg Tab) 1 Tablets By Mouth Once a day (at bedtime) Screen for colon cancer History of colon polyps Kidney transplanted CAD (coronary artery disease) of bypass graft Chronic GERD Unchanged lisinopril (lisinopril 5 mg Tab) By Mouth Every day Unchanged magnesium amino acids chelate By Mouth Unchanged magnesium oxide (magnesium oxide 400 mg Tab) 1 Tablets By Mouth 3 times a day Unchanged metoprolol (Metoprolol tartrate 50 mg Tab) By Mouth 2 times a day Unchanged mycophenolic acid (mycophenolic acid 180 mg oral enteric coated tablet) By Mouth 2 times a day Unchanged prasugrel (Effient 10 mg Tab) 1 Tablets By Mouth Every day Unchanged predniSONE (predniSONE 5 mg Tab) 1 Tablets By Mouth Every day Unchanged ranolazine (ranolazine 500 mg oral ER Tab) 1 Tablets By Mouth 2 times a day Unchanged sodium bicarbonate (sodium bicarbonate 325 mg Tab) 1 Tablets By Mouth 4 times a day as needed for for indigestion Unchanged sucralfate (sucralfate 1 g Tab) 1 Tablets By Mouth 3 times a day Unchanged sulfamethoxazole-trimet hoprim (Bactrim) By Mouth Every 12 hours Unchanged tacrolimus 1 Milligram Unchanged valganciclovir (valganciclovir 450 mg oral tablet) By Mouth Every day Allergies No Known Allergies Problems Ongoing - Any problem that you are currently receiving treatment for. BPH with urinary obstruction History of colon polyps Hyperlipidemia Hypertension Kidney transplanted Microhematuria Myocardial infarct Nocturia polycystic kidney disease Renal failure Screen for colon cancer Patient Survey You may receive a survey via text or e-mail asking about your office visit. Please share your experience with us by completing your survey. We appreciate your feedback and thank you for choosing us for your care. Normal Duran [facility] Gastroenterology Office/Clin ic Noteon 12-25-2023 Gastroenterology Office/Clinic Note Gastroenterology Office/Clinic Note Chief Complaint Colonoscopy HPI Staff Patient is a(n) year old male who presents today for a 10 year colonoscopy recall. Denies Fhx colon cancer. Denies previous EGD. Hx hyperplastic polyps. Denies n/v/c/d, abd pain, bloody or mucus stools. Blood thinners? Plavix Dr Chester [facility] prescribes Plavix GLP-1 agonists? no Colonoscopy 02/04/2013 w/Dr. Cerrato: DIAGNOSIS: Two sigmoid polyps as described above, status post snare polypectomy. Pathology: Sigmoid colon, biopsy: Hyperplastic polyp History of Present Illness Doing well, occasional chest burning overnight resolves with nitro, he checked with her rotor plate washer, does not seem to be cardiac per patient Review of Systems PHQ Score Initial Depression Screen Score: 0 SCORE Physical Exam Vitals & Measurements HR: 60(Peripheral) BP: 146/88 HT: 70 in HT: 177.8 cm WT: 94.3 kg WT: 207.46 lb BMI: 29.83 Assessment/Plan 1. Screen for colon cancer (Z12.11: Encounter for screening for malignant neoplasm of colon) 2 small hyperplastic polyps 10 years ago, repeat colonoscopy Ordered: famotidine, 40 mg = 1 tab(s), Oral, Once a day (at bedtime), # 90 tab(s), Refills(s) 0, Pharmacy: [facility], 177.8, cm, 12/25/23 9:23:00 EDT, Height/Length Dosing, 94.3, kg, 12/25/23 9:23:00 EDT, Weight Dosing Colonoscopy (Hospital Procedure) 2. History of colon polyps (Z86.010: Personal history of colonic polyps) Ordered: famotidine, 40 mg = 1 tab(s), Oral, Once a day (at bedtime), # 90 tab(s), Refills(s) 0, Pharmacy: [facility], 177.8, cm, 12/25/23 9:23:00 EDT, Height/Length Dosing, 94.3, kg, 12/25/23 9:23:00 EDT, Weight Dosing Colonoscopy (Hospital Procedure) 3. Kidney transplanted (Z94.0: Kidney transplant status) Due to PCOS, status post kidney transplant 2017 and recent resection of the polycystic kidneys due to pressure on organs Ordered: famotidine, 40 mg = 1 tab(s), Oral, Once a day (at bedtime), # 90 tab(s), Refills(s) 0, Pharmacy: [facility], 177.8, cm, 12/25/23 9:23:00 EDT, Height/Length Dosing, 94.3, kg, 12/25/23 9:23:00 EDT, Weight Dosing 4. CAD (coronary artery disease) of bypass graft (I25.810: Atherosclerosis of coronary artery bypass graft(s) without angina pectoris) Status post CABG and multiple stents, hold Plavix for 5 to 7 days, will check with cardiology to ensure it is safe Ordered: famotidine, 40 mg = 1 tab(s), Oral, Once a day (at bedtime), # 90 tab(s), Refills(s) 0, Pharmacy: [facility], 177.8, cm, 12/25/23 9:23:00 EDT, Height/Length Dosing, 94.3, kg, 12/25/23 9:23:00 EDT, Weight Dosing 5. Chronic GERD (K21.9: Gastro-esophageal reflux disease without esophagitis) Controlled with Nexium, improved after kidney removals Start Pepcid at bedtime as needed, may use Tums and Gaviscon as needed EGD Ordered: famotidine, 40 mg = 1 tab(s), Oral, Once a day (at bedtime), # 90 tab(s), Refills(s) 0, Pharmacy: [facility], 177.8, cm, 12/25/23 9:23:00 EDT, Height/Length Dosing, 94.3, kg, 12/25/23 9:23:00 EDT, Weight Dosing Follow-up No qualifying data available Problem List/Past Medical History Ongoing BPH with urinary obstruction History of colon polyps Hyperlipidemia Hypertension Kidney transplanted Microhematuria Myocardial infarct Nocturia polycystic kidney disease Renal failure Screen for colon cancer Historical No qualifying data Procedure/Surgical History Kidney transplant (01/01/2018), Bilateral vasectomy, Colonoscopy, Placement of stent in cardiac conduit, Triple coronary bypass. Medications aspirin 81 mg oral tablet, Oral, Daily atorvastatin 80 mg Tab, 80 mg= 1 tab(s), Oral, Daily Bactrim, Oral, q12hr, Not taking clopidogrel 75 mg Tab, 75 mg= 1 tab(s), Oral, Daily clotrimazole 10 mg Jennifer, Oral, 5x/Day Effient 10 mg Tab, 10 mg= 1 tab(s), Oral, Daily, Not taking: Script was changed to plavix Farxiga 10 mg oral tablet, 10 mg= 1 tab(s), Oral, Daily, Not taking lisinopril 5 mg Tab, Oral, Daily magnesium amino acids chelate, Oral, Not taking magnesium oxide 400 mg Tab, 400 mg= 1 tab(s), Oral, TID Metoprolol tartrate 50 mg Tab, Oral, BID, Not taking: Dose changed mycophenolic acid 180 mg oral enteric coated tablet, Oral, BID predniSONE 5 mg Tab, 5 mg= 1 tab(s), Oral, Daily, Not taking ranolazine 500 mg oral ER Tab, 500 mg= 1 tab(s), Oral, BID sodium bicarbonate 325 mg Tab, 1 tab(s), Oral, QID, PRN, Not taking sucralfate 1 g Tab, 1 gm= 1 tab(s), Oral, TID, Not taking tacrolimus, 1 mg valganciclovir 450 mg oral tablet, Oral, Daily, Not taking Allergies No Known Allergies Social History Alcohol - Low Risk, 01/17/2022 Substance Abuse - Denies Substance Abuse, 01/17/2022 Tobacco - Denies Tobacco Use, 01/17/2022 Former smoker, quit more than 30 days ago Tobacco Use:. Never Smokeless Tobacco Use:. Cigarettes, 12/25/2023 Family History Alzheimer's disease: Mother. Immunizati (more content not included)... Normal [facility] Comment on above: Result Comment: Elec tronically Signed By: Gladys FRANK, Xochilt Butler\.br\Date and Time Signed: 12/25/23 09:51 EDT Reminderson 11-21-2023 Reminders Reminders From: Tamara White MA To: Tamara White MA; Sent: 02/02/2023 10:39:43 EDT Show up: 02/02/2023 10:40:00 EDT Subject: colon recall Reminder Message [address] Cerrato 02/01/13 first recall letter sent Future Appointments [facility] Digestive [facility] Appt. Date: 12/25/2023 9:30 AM Scheduled Provider: Gladys FRANK, Xochilt Butler [address] [place], [place] [address], [address], [address] Phone: [phone] Fax: [phone] [facility] Office Visiton 11-20-2023 Follow-up visit [id number] Vishal Duke 1960 M Date Provider Department Center 11/20/2023 FEDER[facility] MEDRANO Family History Problem Relation Age of Onset Alzheimer's disease Mother Coronary artery disease Father Family Status - Relation Status Age at Mother Father Level of Service:40696 MA OFFICE/OUTPATIENT ESTABLISHED MOD MDM 30 MIN Normal [facility] Office Visiton 06-05-2023 Follow-up visit [id number] Vishal Duke 1960 M Date Provider Department Center 06/05/2023 FEDERICO MEDRANO Family History Problem Relation Age of Onset Alzheimer's disease Mother Coronary artery disease Father Family Status - Relation Status Age at Mother Father Level of Service:51899 MA OFFICE/OUTPATIENT ESTABLISHED LOW MDM 20 MIN Normal [facility] TACROLIMUS (FK506), BLOODon 05-31-2023 TACROLIMUS (FK506), BLOOD 5.5 ng/mL 2.0 - 20.0 ng/mL [facility] Comment on above: This test was develo ped and its performance characteristics determined by [facility]. It has not been cleared or approved by the Food and Drug Administration. Trough (immediately following transplant) 15.0 Trough (steady state, 2 weeks or more after transplant): 3.0 - 8.0 Performed by LC-MS/MS technology. Performed at: [facility] Lab[address] [id number] Press [place] Helper: Evan Orozco MD, Phone: [phone] [facility] BILIRUBIN, DIRECTon 05-18-19 24 Magnesium [Mass/Vol] 0.2 mg/dL Normal 0-0.[address] [facility] Comment on above: Performed By: #### L [id number] #### [facility] ([facility]) [address] [place] [address] CBC WITH AUTO DIFFERENTIALon 05-18-2023 Basophils (Bld) [#/Vol] 0.05 10*3/uL Normal 0.00-0.20 [facility] Comment on above: Performed By: #### L [id number] #### [facility] ([facility]) [address] [place] [address] Basophils/100 WBC (Bld) 0.6 % Normal 0.0-1.0 [facility] Comment on above: Performed By: #### L [id number] #### [facility] ([facility]) [address] [place] [address] Eosinophils (Bld) [#/Vol] 0.12 10*3/uL Normal 0.00-0.50 [facility] Comment on above: Performed By: #### L [id number] #### [facility] ([facility]) [address] [place] [address] Eosinophils/100 WBC (Bld) 1.4 % Normal 0.0-6.0 [facility] Comment on above: Performed By: #### L [id number] #### [facility] ([facility]) [address] [place] [address] Erythrocyte distribution width (RBC) [Ratio] 14.9 % Normal 11.5-15.0 [facility] Comment on above: Performed By: #### L [id number] #### [facility] ([facility]) [address] [place] [address] ERYTHROCYTE MEAN CORPUSCULAR HEMOGLOBIN CONCENTRATION (G/DL) BY AUTOMATED 33.4 g/dL Normal 32.0-35.0 [facility] Comment on above: Performed By: #### L [id number] #### [facility] ([facility]) [address] [place] [address] Hematocrit (Bld) [Volume fraction] 48.5 % Normal 39.0-55.0 [facility] Comment on above: Performed By: #### L [id number] #### [facility] ([facility]) [address] [place] [address] Hemoglobin (Bld) [Mass/Vol] 16.2 g/dL Normal 13.0-17.0 [facility] Comment on above: Performed By: #### L [id number] #### [facility] ([facility]) [address] [place] [address] Immature granulocytes (Bld) [#/Vol] 0.07 10*3/uL Normal 0.00-0.20 [facility] Comment on above: Performed By: #### L [id number] #### [facility] ([facility]) [address] [place] [address] Immature granulocytes/100 WBC (Bld) 0.8 % Normal 0.0-1.0 [facility] Comment on above: Performed By: #### L [id number] #### [facility] ([facility]) [address] [place] [address] Lymphocytes (Bld) [#/Vol] 1.06 10*3/uL Low 1.20-4.00 [facility] Comment on above: Performed By: #### L [id number] #### [facility] ([facility]) [address] [place] [address] Lymphocytes/100 WBC (Bld) 12.3 % Low 20.0-45.0 [facility] Comment on above: Performed By: #### L [id number] #### [facility] ([facility]) [address] [place] [address] MCH (RBC) [Entitic mass] 29.9 pg Normal 27.0-33.0 [facility] Comment on above: Performed By: #### L [id number] #### [facility] [address] [place] [address] MCV (RBC) [Entitic vol] 89.6 fL Normal 82.0-98.0 [facility] Comment on above: Performed By: #### L [id number] #### [facility] [address] [place] [address] Monocytes (Bld) [#/Vol] 0.68 10*3/uL Normal 0.10-1.00 [facility] Comment on above: Performed By: #### L [id number] #### [facility] [address] [place] [address] Monocytes/100 WBC (Bld) 7.9 % Normal 5.0-12.0 [facility] Comment on above: Performed By: #### L [id number] #### [facility] ([facility]) [address] [place] [address] Neutrophils (Bld) [#/Vol] 6.61 10*3/uL Normal 1.60-7.60 [facility] Comment on above: Performed By: #### L [id number] #### [facility] ([facility]) [address] [place] [address] Neutrophils/100 WBC (Bld) 77.0 % High 40.0-72.0 [facility] Comment on above: Performed By: #### L [id number] #### [facility] ([facility]) [address] [place] [address] NRBC (PER 100 WBCS) BY AUTOMATED COUNT 0.0 % Normal 0 [facility] Comment on above: Performed By: #### L [id number] #### [facility] ([facility]) [address] [address] PLATELETS (10*3/UL) IN BLOOD AUTOMATED COUNT 254 10*3/uL Normal 150-400 [facility] Comment on above: Performed By: #### L [id number] #### [facility] ([facility]) [address] [address] RBC (Bld) [#/Vol] 5.41 10*6/uL Normal 4.20-5.70 [facility] Comment on above: Performed By: #### L [id number] #### [facility] ([facility]) [address] [address] WBC (Bld) [#/Vol] 8.59 10*3/uL Normal 4.00-10.60 [facility] Comment on above: Performed By: #### L [id number] #### [facility] ([facility]) [address] [place] [address] COMPREHENSIVE METABOLIC PANE Nitin 05-18-2023 Albumin [Mass/Vol] 4.5 g/dL Normal 3.5-5.7 [facility] Comment on above: Performed By: #### L [id number] ####[facility] [place] [address] ALP [Catalytic activity/Vol] 78 U/L Normal 34-104 [facility] Comment on above: Performed By: #### L [id number] ####[facility] [place] [address] ALT [Catalytic activity/Vol] 22 U/L Normal 7-52 [facility] Comment on above: Performed By: #### L [id number] ####[facility] ([facility])[address] [place] [address] Anion gap [Moles/Vol] 12 mmol/L Normal 7-20 [facility] Comment on above: Performed By: #### L [id number] ####[facility] ([facility])[address] [place] [address] AST [Catalytic activity/Vol] 17 U/L Normal 13-39 [facility] Comment on above: Performed By: #### L [id number] ####[facility] ([facility])[address] [place] [address] Bilirubin [Mass/Vol] 0.8 mg/dL Normal 0.3-1.[address] [facility] Comment on above: Performed By: #### L [id number] ####[facility] ([facility])[address] [place] [address] Calcium [Mass/Vol] 9.4 mg/dL Normal 8.6-10.3 [facility] Comment on above: Performed By: #### L [id number] ####[facility] ([facility])[address] [place] [address] Chloride [Moles/Vol] 101 mmol/L Normal 98-[address] [facility] Comment on above: Performed By: #### L [id number] ####[facility] ([facility])[address] [place] [address] CO2 [Moles/Vol] 26 mmol/L Normal 21-31 [facility] Comment on above: Performed By: #### L [id number] ####[facility] ([facility])[address] [place] [address] Creatinine [Mass/Vol] 1.24 mg/dL Normal 0.70-1.30 [facility] Comment on above: Performed By: #### L [id number] ####[facility] ([facility])[address] [place] [address] GLOMERULAR FILTRATION RATE ML/MIN/1.73 SQ M.PREDICTED 65.7 mL/min/1.73m*2 Normal >60.0 [facility] Comment on above: Result Comment: [facility]???s estimated glomerular filtration rate (eGFR) will [...] of individuals. Performed By: #### L [id number] ####[facility] ([facility])[address] [place] [address] Glucose [Mass/Vol] 130 mg/dL High 70-100 [facility] Comment on above: Performed By: #### L [id number] ####[facility] ([facility])[address] [place] [address] Potassium [Moles/Vol] 4.0 mmol/L Normal 3.5-5.1 [facility] Comment on above: Performed By: #### L [id number] ####[facility] ([facility])[address] [place] [address] Protein [Mass/Vol] 6.8 g/dL Normal 6.0-8.3 [facility] Comment on above: Performed By: #### L [id number] ####[facility] ([facility])[address] [place] [address] Sodium [Moles/Vol] 135 mmol/L Low 136-145 [facility] Comment on above: Performed By: #### L [id number] ####[facility] ([facility])[address] [place] [address] Urea nitrogen [Mass/Vol] 24 mg/dL Normal 7-25 [facility] Comment on above: Performed By: #### L [id number] ####[facility] ([facility])[address] [place] [address] UREA NITROGEN/CREATININE (MASS RATIO) IN SER/PLAS 19.4 Normal [facility] Comment on above: Performed By: #### L [id number] ####[facility] ([facility])[address] [place] [address] Follow-Upon 05-18-2023 Follow-Up [id number] Vishal Duke 1960 M Date Provider Department Center 05/18/2023 Pinky-BOBBY MALDONADO TXP None Family History Problem Relation Age of Onset Alzheimer's disease Mother Coronary artery disease Father Family Status - Relation Status Age at Mother Father Level of Service:12041 [place] OFFICE/OUTPATIENT ESTABLISHED LOW MDM 20 MIN Reason for Visit and Comments: Kidney Follow-up [] - Patient has no major concerns today Normal [facility] HEMOGLOBIN A1Con 05-18-2023 Glucose [Mass/Vol] 137 mg/dL Normal [facility] Comment on above: Performed By: #### L [id number] ####[facility] ([facility])[address] [place] [address] HbA1c (Bld) [Mass fraction] 6.4 % High 4.0-6.0 [facility] Comment on above: Performed By: #### L [id number] ####[facility] ([facility])[address] [place] [address] LIPID PANELon 05-18-2023 CHOL/HDL 3.2 mg/dL Normal [facility] Comment on above: Performed By: #### L [id number] #### [facility] ([facility]) [address] [place] [address] Cholesterol [Mass/Vol] 120 mg/dL Normal 120-200 [facility] Comment on above: Performed By: #### L [id number] #### [facility] ([facility]) [address] [place] [address] Magnesium [Mass/Vol] 209 mg/dL High 40-[address] [facility] Comment on above: Result Comment: TRIG LYCERIDE REFERENCE RANGE: 20 YEARS AND OLDER CARDIOVASCULAR RISK LESS THAN 150 mg/dL LOW RISK 150 TO 199 mg/dL BORDERLINE RISK 200 mg/dL AND GREATER HIGH RISK Performed By: #### L [id number] #### [facility] ([facility]) [address] [place] [address] Magnesium [Mass/Vol] 40 mg/dL Normal 0-[address] [facility] Comment on above: Performed By: #### L [id number] #### [facility] ([facility]) [address] [place] [address] Magnesium [Mass/Vol] 38 mg/dL Normal 23-[address] [facility] Comment on above: Performed By: #### L [id number] #### [facility] ([facility]) [address] [place] [address] NON HDL CHOL. (LDL+VLDL) 82 Normal [facility] Comment on above: Performed By: #### L [id number] #### [facility] ([facility]) [address] [place] [address] TOTAL VLDL-C 42 mg/dL High 0-40 [facility] Comment on above: Performed By: #### L [id number] #### [facility] ([facility]) [address] [place] [address] Labon 05-18-2023 Lab [id number] Vishal Duke 1960 M Date Provider Department Center 05/18/2023 [id number] DRAW STATION [facility] [facility] Family History Problem Relation Age of Onset Alzheimer's disease Mother Coronary artery disease Father Family Status - Relation Status Age at Mother Father Normal [facility] MAGNESIUMon 05-18-2023 Magnesium [Mass/Vol] 1.6 mg/dL Low 1.9-2.[address] [facility] Comment on above: Performed By: #### L [id number] #### [facility] ([facility]) [address] [place] [address] Orders Onlyon 05-18-2023 Orders Only [id number] Vishal Duke 1960 M Date Provider Department Center 05/18/2023 Sailaja-FARRUKH BLANCAS None Family History Problem Relation Age of Onset Alzheimer's disease Mother Coronary artery disease Father Family Status - Relation Status Age at Mother Father Normal [facility] PHOSPHORUSon 05-18-2023 Magnesium [Mass/Vol] 3.5 mg/dL Normal 2.5-5.0 [facility] Comment on above: Performed By: #### L [id number] ####[facility] ([place])[address] [place] [address] TACROLIMUS LEVELon Tacrolimus (Bld) [Mass/Vol] 11.6 ng/mL Normal 5.0-20.0 [facility] Comment on above: Result Comment: The [employer] Tacrolimus assay is a delayed one-step immunoassay for the quantitative determination of tacrolimus in human whole blood using the chemiluminescent microparticle immunoassay (CMIA) technology with flexible assay protocols, referred to as Chemiflex. Performed By: #### L [id number] #### [facility] ([place]) [address] [place] [address] TESTOSTERONE, FREE AND TOTAL , AND SHBGon 05-18-2023 SEX HORMONE BINDING GLOBULIN (NMOL/L) IN SER/PLAS 28 nmol/L Normal 11-80 [facility] Comment on above: Performed By: #### L [id number] ####[employer] [id number] [place] [address] TESTOSTERONE (NG/DL) IN SER/PLAS 319 ng/dL Normal 220-1000 [facility] Comment on above: Performed By: #### L [id number] ####[employer] [id number] [place] [address] TESTOSTERONE FREE (NG/ML) IN SER/PLAS 69.3 pg/mL Normal 47-244 [facility] Comment on above: Result Comment: The concentration of free testosterone is derived from a mathematical expression based on the constant for the binding of testosterone to albumin and/or sex hormone binding globulin. Test Performed by [employer] [address] [place] [address] - Released 05/18/2023 15:33 Performed By: #### L [id number] ####[facility] [id number] [place] [address] URIC ACIDon 05-18-2023 Magnesium [Mass/Vol] 5.1 mg/dL Normal 4.4-7.[address] [facility] Comment on above: Performed By: #### L [id number] ####[facility] ([facility])[address] [place] [address] BILIRUBIN, DIRECTon 03-28-20 Magnesium [Mass/Vol] 0.1 mg/dL Normal 0-0.[address] [facility] Comment on above: Performed By: #### L [id number] #### [facility] ([facility]) [address] [place] [address] CBC WITH AUTO DIFFERENTIALon 03-28-2023 Basophils (Bld) [#/Vol] 0.08 10*3/uL Normal 0.00-0.20 [facility] Comment on above: Performed By: #### L [id number] #### [facility] ([facility]) [address] [place] [address] Basophils/100 WBC (Bld) 0.8 % Normal 0.0-1.0 [facility] Comment on above: Performed By: #### L [id number] #### [facility] ([facility]) [address] [place] [address] Eosinophils (Bld) [#/Vol] 0.17 10*3/uL Normal 0.00-0.50 [facility] Comment on above: Performed By: #### L [id number] #### [facility] ([facility]) [address] [place] [address] Eosinophils/100 WBC (Bld) 1.7 % Normal 0.0-6.0 [facility] Comment on above: Performed By: #### L [id number] #### [facility] ([facility]) [address] [place] [address] Erythrocyte distribution width (RBC) [Ratio] 14.8 % Normal 11.5-15.0 [facility] Comment on above: Performed By: #### L [id number] #### [facility] ([facility]) [address] [place] [address] ERYTHROCYTE MEAN CORPUSCULAR HEMOGLOBIN CONCENTRATION (G/DL) BY AUTOMATED 32.9 g/dL Normal 32.0-35.0 [facility] Comment on above: Performed By: #### L [id number] #### [facility] ([facility]) [address] [place] [address] Hematocrit (Bld) [Volume fraction] 49.3 % Normal 39.0-55.0 [facility] Comment on above: Performed By: #### L [id number] #### [facility] ([facility]) [address] [place] [address] Hemoglobin (Bld) [Mass/Vol] 16.2 g/dL Normal 13.0-17.0 [facility] Comment on above: Performed By: #### L [id number] #### [facility] ([facility]) [address] [place] [address] Immature granulocytes (Bld) [#/Vol] 0.07 10*3/uL Normal 0.00-0.20 [facility] Comment on above: Performed By: #### L [id number] #### [facility] ([facility]) [address] [place] [address] Immature granulocytes/100 WBC (Bld) 0.7 % Normal 0.0-1.0 [facility] Comment on above: Performed By: #### L [id number] #### [facility] ([facility]) [address] [place] [address] Lymphocytes (Bld) [#/Vol] 1.26 10*3/uL Normal 1.20-4.00 [facility] Comment on above: Performed By: #### L [id number] #### [facility] ([facility]) [address] [place] [address] Lymphocytes/100 WBC (Bld) 12.4 % Low 20.0-45.0 [facility] Comment on above: Performed By: #### L [id number] #### [facility] [facility] [address] [place] [address] MCH (RBC) [Entitic mass] 29.8 pg Normal 27.0-33.0 [facility] Comment on above: Performed By: #### L [id number] #### [facility] ([facility]) [address] [place] [address] MCV (RBC) [Entitic vol] 90.8 fL Normal 82.0-98.0 [facility] Comment on above: Performed By: #### L [id number] #### [facility] ([facility]) [address] [place] [address] Monocytes (Bld) [#/Vol] 0.94 10*3/uL Normal 0.10-1.00 [facility] Comment on above: Performed By: #### L [id number] #### [facility] ([facility]) [address] [place] [address] Monocytes/100 WBC (Bld) 9.2 % Normal 5.0-12.0 [facility] Comment on above: Performed By: #### L [id number] #### [facility] ([facility]) [address] [place] [address] Neutrophils (Bld) [#/Vol] 7.66 10*3/uL High 1.60-7.60 [facility] Comment on above: Performed By: #### L [id number] #### [facility] ([facility]) [address] [place] [address] Neutrophils/100 WBC (Bld) 75.2 % High 40.0-72.0 [facility] Comment on above: Performed By: #### L [id number] #### [facility] ([facility]) [address] [place] [address] NRBC (PER 100 WBCS) BY AUTOMATED COUNT 0.0 % Normal 0 [facility] Comment on above: Performed By: #### L [id number] #### [facility] ([facility]) [address] [place] [address] PLATELETS (10*3/UL) IN BLOOD AUTOMATED COUNT 276 10*3/uL Normal 150-400 [facility] Comment on above: Performed By: #### L [id number] #### [facility] ([facility]) [address] [place] [address] RBC (Bld) [#/Vol] 5.43 10*6/uL Normal 4.20-5.70 [facility] Comment on above: Performed By: #### L [id number] #### [facility] ([facility]) [address] [place] [address] WBC (Bld) [#/Vol] 10.18 10*3/uL Normal 4.00-10.[address] [facility] Comment on above: Performed By: #### L [id number] #### [facility] ([facility]) [address] [place] [address] COMPREHENSIVE METABOLIC PANE Nitin 03-28-2023 Albumin [Mass/Vol] 4.7 g/dL Normal 3.5-5.7 [facility] Comment on above: Performed By: #### L [id number] ####[facility] [place] [address] ALP [Catalytic activity/Vol] 92 U/L Normal 34-104 [facility] Comment on above: Performed By: #### L [id number] ####[facility] [place] [address] ALT [Catalytic activity/Vol] 19 U/L Normal 7-52 [facility] Comment on above: Performed By: #### L [id number] ####[facility] [place] [address] Anion gap [Moles/Vol] 11 mmol/L Normal 7-20 [facility] Comment on above: Performed By: #### L [id number] ####[facility] ([facility])[address] [place] [address] AST [Catalytic activity/Vol] 17 U/L Normal 13-39 [facility] Comment on above: Performed By: #### L [id number] ####[facility] [place] [address] Bilirubin [Mass/Vol] 0.6 mg/dL Normal 0.3-1.[address] [facility] Comment on above: Performed By: #### L [id number] ####[facility] [place] [address] Calcium [Mass/Vol] 9.9 mg/dL Normal 8.6-10.3 [facility] Comment on above: Performed By: #### L [id number] ####[facility] [place] [address] Chloride [Moles/Vol] 105 mmol/L Normal 98-[address] [facility] Comment on above: Performed By: #### L [id number] ####[facility] ([facility])[address] [place] [address] CO2 [Moles/Vol] 27 mmol/L Normal 21-31 [facility] Comment on above: Performed By: #### L [id number] ####[facility] ([facility])[address] [place] [address] Creatinine [Mass/Vol] 1.21 mg/dL Normal 0.70-1.30 [facility] Comment on above: Performed By: #### L [id number] ####[facility] ([facility])[address] [place] [address] GLOMERULAR FILTRATION RATE ML/MIN/1.73 SQ M.PREDICTED 67.7 mL/min/1.73m*2 Normal >60.0 [facility] Comment on above: Result Comment: [facility]???s estimated glomerular filtration rate (eGFR) will [...] of individuals. Performed By: #### L [id number] ####[facility] [place] [address] Glucose [Mass/Vol] 136 mg/dL High 70-100 [facility] Comment on above: Performed By: #### L [id number] ####[facility] ([facility])[address] [place] [address] Potassium [Moles/Vol] 4.8 mmol/L Normal 3.5-5.1 [facility] Comment on above: Performed By: #### L [id number] ####[facility] ([facility])[address] [place] [address] Protein [Mass/Vol] 6.9 g/dL Normal 6.0-8.3 [facility] Comment on above: Performed By: #### L [id number] ####[facility] ([facility])[address] [place] [address] Sodium [Moles/Vol] 138 mmol/L Normal 136-145 [facility] Comment on above: Performed By: #### L [id number] ####[facility] ([facility])[address] [place] [address] Urea nitrogen [Mass/Vol] 20 mg/dL Normal 7-25 [facility] Comment on above: Performed By: #### L [id number] ####[facility] ([facility])[address] [place] [address] UREA NITROGEN/CREATININE (MASS RATIO) IN SER/PLAS 16.5 Normal [facility] Comment on above: Performed By: #### L [id number] ####[facility] ([facility])[address] [place] [address] Follow-Upon 03-28-2023 Follow-Up [id number] Vishal Duke 1960 M Date Provider Department Center 03/28/2023 PETEY LU None Family History Problem Relation Age of Onset Alzheimer's disease Mother Coronary artery disease Father Family Status - Relation Status Age at Mother Father Level of Service:57925 [place] OFFICE/OUTPATIENT ESTABLISHED MOD MDM 30-39 MIN Reason for Visit and Comments: Kidney Follow-up [] - Patient have no concerns Normal [facility] LIPID PANELon 12-12-2023 CHOL/HDL 2.8 mg/dL Normal [facility] Comment on above: Performed By: #### L [id number] #### [facility] [address] [place] [address] Cholesterol [Mass/Vol] 125 mg/dL Normal 120-200 [facility] Comment on above: Performed By: #### L [id number] #### [facility] ([facility]) [address] [place] [address] Magnesium [Mass/Vol] 157 mg/dL High 40-[address] [facility] Comment on above: Result Comment: TRIG LYCERIDE REFERENCE RANGE: 20 YEARS AND OLDER CARDIOVASCULAR RISK LESS THAN 150 mg/dL LOW RISK 150 TO 199 mg/dL BORDERLINE RISK 200 mg/dL AND GREATER HIGH RISK Performed By: #### L [id number] #### [facility] ([facility]) [address] [place] [address] Magnesium [Mass/Vol] 49 mg/dL Normal 0-[address] [facility] Comment on above: Performed By: #### L [id number] #### [facility] ([facility]) [address] [place] [address] Magnesium [Mass/Vol] 45 mg/dL Normal 23-[address] [facility] Comment on above: Performed By: #### L [id number] #### [facility] ([facility]) [address] [place] [address] NON HDL CHOL. (LDL+VLDL) 80 Normal [facility] Comment on above: Performed By: #### L [id number] #### [facility] [address] [place] [address] TOTAL VLDL-C 31 mg/dL Normal 0-40 [facility] Comment on above: Performed By: #### L [id number] #### [facility] [address] [facility] [place] [address] Labon 03-28-2023 Lab [id number] Vishal Duke 1960 M Date Provider Department Pyote 03/28/2023 [id number] DRAW STATION KXT [facility] Family History Problem Relation Age of Onset Alzheimer's disease Mother Coronary artery disease Father Family Status - Relation Status Age at Mother Father Normal [facility] MAGNESIUMon 03-28-2023 Magnesium [Mass/Vol] 1.5 mg/dL Low 1.9-2.[address] [facility] Comment on above: Performed By: #### L [id number] ####[facility] ([facility])[address] [place] [address] PHOSPHORUSon 03-28-2023 Magnesium [Mass/Vol] 3.6 mg/dL Normal 2.5-5.[address] [facility] Comment on above: Performed By: #### L [id number] ####[facility] ([facility])[address] [place] [address] TACROLIMUS LEVELon Tacrolimus (Bld) [Mass/Vol] 9.6 ng/mL Normal 5.0-20.0 [facility] Comment on above: Result Comment: The [employer] Tacrolimus assay is a delayed one-step immunoassay for the quantitative determination of tacrolimus in human whole blood using the chemiluminescent microparticle immunoassay (CMIA) technology with flexible assay protocols, referred to as Chemiflex. Performed By: #### L [id number] #### [facility] ([facility]) [address] [place] [address] URIC ACIDon 03-28-2023 Magnesium [Mass/Vol] 5.2 mg/dL Normal 4.4-7.[address] [facility] Comment on above: Performed By: #### L [id number] ####[facility] ([facility])[address] [place] [address] Orders Onlyon 03-08-2023 Orders Only [id number] Vishal Duke 1960 M Date Provider Department Center 03/08/2023 Sailaja-FARRUKH BLANCAS None Family History Problem Relation Age of Onset Alzheimer's disease Mother Coronary artery disease Father Family Status - Relation Status Age at Mother Father Normal [facility] BILIRUBIN, DIRECTon 02-10-20 Magnesium [Mass/Vol] 0.1 mg/dL Normal 0-0.[address] [facility] Comment on above: Performed By: #### L [id number] #### [facility] ([facility]) [address] [place] [address] CBC WITH AUTO DIFFERENTIALon 02-09-2023 Basophils (Bld) [#/Vol] 0.10 10*3/uL Normal 0.00-0.20 [facility] Comment on above: Performed By: #### L [id number] #### [facility] [address] [place] [address] Basophils/100 WBC (Bld) 1.0 % Normal 0.0-1.0 [facility] Comment on above: Performed By: #### L [id number] #### [facility] [address] [place] [address] Eosinophils (Bld) [#/Vol] 0.10 10*3/uL Normal 0.00-0.50 [facility] Comment on above: Performed By: #### L [id number] #### [facility] [address] [place] [address] Eosinophils/100 WBC (Bld) 1.0 % Normal 0.0-6.0 [facility] Comment on above: Performed By: #### L [id number] #### [facility] [address] [place] [address] Erythrocyte distribution width (RBC) [Ratio] 14.0 % Normal 11.5-15.0 [facility] Comment on above: Performed By: #### L [id number] #### [facility] [address] [place] [address] ERYTHROCYTE MEAN CORPUSCULAR HEMOGLOBIN CONCENTRATION (G/DL) BY AUTOMATED 32.3 g/dL Normal 32.0-35.0 [facility] Comment on above: Performed By: #### L [id number] #### [facility] ([facility]) [address] [place] [address] Hematocrit (Bld) [Volume fraction] 46.4 % Normal 39.0-55.0 [facility] Comment on above: Performed By: #### L [id number] #### [facility] ([facility]) [address] [place] [address] Hemoglobin (Bld) [Mass/Vol] 15.0 g/dL Normal 13.0-17.0 [facility] Comment on above: Performed By: #### L [id number] #### [facility] ([facility]) [address] [place] [address] Immature granulocytes (Bld) [#/Vol] 0.09 10*3/uL Normal 0.00-0.20 [facility] Comment on above: Performed By: #### L [id number] #### [facility] ([facility]) [address] [place] [address] Immature granulocytes/100 WBC (Bld) 0.9 % Normal 0.0-1.0 [facility] Comment on above: Performed By: #### L [id number] #### [facility] ([facility]) [address] [place] [address] Lymphocytes (Bld) [#/Vol] 0.92 10*3/uL Low 1.20-4.00 [facility] Comment on above: Performed By: #### L [id number] #### [facility] ([facility]) [address] [place] [address] Lymphocytes/100 WBC (Bld) 9.2 % Low 20.0-45.0 [facility] Comment on above: Performed By: #### L [id number] #### [facility] [address] [place] [address] MCH (RBC) [Entitic mass] 29.5 pg Normal 27.0-33.0 [facility] Comment on above: Performed By: #### L [id number] #### [facility] [address] [place] [address] MCV (RBC) [Entitic vol] 91.3 fL Normal 82.0-98.0 [facility] Comment on above: Performed By: #### L [id number] #### [facility] ([facility]) [address] [place] [address] Monocytes (Bld) [#/Vol] 0.75 10*3/uL Normal 0.10-1.00 [facility] Comment on above: Performed By: #### L [id number] #### [facility] ([facility]) [address] [place] [address] Monocytes/100 WBC (Bld) 7.5 % Normal 5.0-12.0 [facility] Comment on above: Performed By: #### L [id number] #### [facility] ([facility]) [address] [place] [address] Neutrophils (Bld) [#/Vol] 8.09 10*3/uL High 1.60-7.60 [facility] Comment on above: Performed By: #### L [id number] #### [facility] ([facility]) [address] [place] [address] Neutrophils/100 WBC (Bld) 80.4 % High 40.0-72.0 [facility] Comment on above: Performed By: #### L [id number] #### [facility] [address] [place] [address] NRBC (PER 100 WBCS) BY AUTOMATED COUNT 0.0 % Normal 0 [facility] Comment on above: Performed By: #### L [id number] #### [facility] ([facility]) [address] [place] [address] PLATELETS (10*3/UL) IN BLOOD AUTOMATED COUNT 567 10*3/uL High 150-400 [facility] Comment on above: Performed By: #### L [id number] #### [facility] ([facility]) [address] [place] [address] RBC (Bld) [#/Vol] 5.08 10*6/uL Normal 4.20-5.70 [facility] Comment on above: Performed By: #### L [id number] #### [facility] [address] [place] [address] WBC (Bld) [#/Vol] 10.05 10*3/uL Normal 4.00-10.[address] [facility] Comment on above: Performed By: #### L [id number] #### [facility] [address] [place] [address] COMPREHENSIVE METABOLIC PANE Nitin 02-09-2023 Albumin [Mass/Vol] 4.5 g/dL Normal 3.5-5.7 [facility] Comment on above: Performed By: #### L [id number] #### [facility] ([facility]) [address] [place] [address] ALP [Catalytic activity/Vol] 132 U/L High 34-104 [facility] Comment on above: Performed By: #### L [id number] #### [facility] [address] [place] [address] ALT [Catalytic activity/Vol] 47 U/L Normal 7-52 [facility] Comment on above: Performed By: #### L [id number] #### [facility] ([facility]) [address] [place] [address] Anion gap [Moles/Vol] 13 mmol/L Normal 7-20 [facility] Comment on above: Performed By: #### L [id number] #### [facility] [address] [place] [address] AST [Catalytic activity/Vol] 27 U/L Normal 13-39 [facility] Comment on above: Performed By: #### L [id number] #### [facility] ([facility]) [address] [place] [address] Bilirubin [Mass/Vol] 0.6 mg/dL Normal 0.3-1.[address] [facility] Comment on above: Performed By: #### L [id number] #### [facility] [address] [place] [address] Calcium [Mass/Vol] 9.7 mg/dL Normal 8.6-10.3 [facility] Comment on above: Performed By: #### L [id number] #### [facility] ([facility]) [address] [place] [address] Chloride [Moles/Vol] 102 mmol/L Normal 98-[address] [facility] Comment on above: Performed By: #### L [id number] #### [facility] ([facility]) [address] [place] [address] CO2 [Moles/Vol] 27 mmol/L Normal 21-31 [facility] Comment on above: Performed By: #### L [id number] #### [facility] ([facility]) [address] [place] [address] Creatinine [Mass/Vol] 1.17 mg/dL Normal 0.70-1.30 [facility] Comment on above: Performed By: #### L [id number] #### [facility] ([facility]) [address] [place] [address] GLOMERULAR FILTRATION RATE ML/MIN/1.73 SQ M.PREDICTED 70.5 mL/min/1.73m*2 Normal >60.0 [facility] Comment on above: Result Comment: [facility]???s estimated glomerular filtration rate (eGFR) will [...] individuals. Performed By: #### L [id number] #### [facility] ([facility]) [address] [place] [address] Glucose [Mass/Vol] 111 mg/dL High 70-100 [facility] Comment on above: Performed By: #### L [id number] #### [facility] ([facility]) [address] [place] [address] Potassium [Moles/Vol] 4.6 mmol/L Normal 3.5-5.1 [facility] Comment on above: Performed By: #### L [id number] #### [facility] ([facility]) [address] [place] [address] Protein [Mass/Vol] 7.2 g/dL Normal 6.0-8.3 [facility] Comment on above: Performed By: #### L [id number] #### [facility] ([facility]) [address] [place] [address] Sodium [Moles/Vol] 137 mmol/L Normal 136-145 [facility] Comment on above: Performed By: #### L [id number] #### [facility] ([facility]) [address] [place] [address] Urea nitrogen [Mass/Vol] 19 mg/dL Normal 7-25 [facility] Comment on above: Performed By: #### L [id number] #### [facility] ([facility]) [address] [place] [address] UREA NITROGEN/CREATININE (MASS RATIO) IN SER/PLAS 16.2 Normal [facility] Comment on above: Performed By: #### L [id number] #### [facility] ([facility]) [address] [place] [address] Follow-Upon 02-09-2023 Follow-Up [id number] Vishal Duke 1960 M Date Provider Department Center 02/09/2023 [id number] MALDONADO TXP None Family History Problem Relation Age of Onset Alzheimer's disease Mother Coronary artery disease Father Family Status - Relation Status Age at Mother Father Level of Service:[id number] MA OFFICE/OUTPATIENT ESTABLISHED LOW MDM 20-29 MIN Reason for Visit and Comments: Kidney Follow-up [] - No major concerns today Normal [facility] HEMOGLOBIN A1Con 02-09-2023 Glucose [Mass/Vol] 134 mg/dL Normal [facility] Comment on above: Performed By: #### L [id number] ####[facility] [place] [address] HbA1c (Bld) [Mass fraction] 6.3 % High 4.0-6.0 [facility] Comment on above: Performed By: #### L [id number] ####[facility] [place] [address] LIPID PANELon 02-09-2023 CHOL/HDL 3.6 mg/dL Normal [facility] Comment on above: Performed By: #### L [id number] #### [facility] ([facility]) [address] [place] [address] Cholesterol [Mass/Vol] 126 mg/dL Normal 120-200 [facility] Comment on above: Performed By: #### L [id number] #### [facility] ([facility]) [address] [place] [address] Magnesium [Mass/Vol] 214 mg/dL High 40-[address] [facility] Comment on above: Result Comment: TRIG LYCERIDE REFERENCE RANGE: 20 YEARS AND OLDER CARDIOVASCULAR RISK LESS THAN 150 mg/dL LOW RISK 150 TO 199 mg/dL BORDERLINE RISK 200 mg/dL AND GREATER HIGH RISK Performed By: #### L [id number] #### [facility] ([facility]) [address] [place] [address] Magnesium [Mass/Vol] 48 mg/dL Normal 0-[address] [facility] Comment on above: Performed By: #### L [id number] #### [facility] ([facility]) [address] [place] [address] Magnesium [Mass/Vol] 35 mg/dL Normal 23-[address] [facility] Comment on above: Performed By: #### L [id number] #### [facility] ([facility]) [address] [place] [address] NON HDL CHOL. (LDL+VLDL) 91 Normal [facility] Comment on above: Performed By: #### L [id number] #### [facility] [address] [place] [address] TOTAL VLDL-C 43 mg/dL High 0-40 [facility] Comment on above: Performed By: #### L [id number] #### [facility] ([facility]) [address] [place] [address] Labon 02-09-2023 Lab [id number] Vishal Duke 1960 M Date Provider Department Pyote 02/09/2023 [id number] DRAW STATION KXT [facility] Family History Problem Relation Age of Onset Alzheimer's disease Mother Coronary artery disease Father Family Status - Relation Status Age at Mother Father Normal [facility] MAGNESIUMon 02-09-2023 Magnesium [Mass/Vol] 1.7 mg/dL Low 1.9-2.[address] [facility] Comment on above: Performed By: #### L [id number] #### [facility] ([facility]) [address] [place] [address] PHOSPHORUSon 02-09-2023 Magnesium [Mass/Vol] 3.7 mg/dL Normal 2.5-5.[address] [facility] Comment on above: Performed By: #### L [id number] #### [facility] ([facility]) [address] [place] [address] TACROLIMUS LEVELon Tacrolimus (Bld) [Mass/Vol] 3.3 ng/mL Low 5.0-20.0 [facility] Comment on above: Result Comment: The [employer] Tacrolimus assay is a delayed one-step immunoassay for the quantitative determination of tacrolimus in human whole blood using the chemiluminescent microparticle immunoassay (CMIA) technology with flexible assay protocols, referred to as Chemiflex. Performed By: #### L [id number] #### [facility] ([facility]) [address] [place] [address] TESTOSTERONE, FREE AND TOTAL , AND SHBGon 02-09-2023 SEX HORMONE BINDING GLOBULIN (NMOL/L) IN SER/PLAS 17 nmol/L Normal 11-80 [facility] Comment on above: Performed By: #### L [id number] #### [facility] [address] [place] [address] TESTOSTERONE (NG/DL) IN SER/PLAS 495 ng/dL Normal 220-1000 [facility] Comment on above: Performed By: #### L [id number] #### [facility] [address] [place] [address] TESTOSTERONE FREE (NG/ML) IN SER/PLAS 142.2 pg/mL Normal 47-244 [facility] Comment on above: Result Comment: The concentration of free testosterone is derived from a mathematical expression based on the constant for the binding of testosterone to albumin and/or sex hormone binding globulin. Test Performed by [employer] [address] [place] [address] - [id number] 02/09/2023 20:38 Performed By: #### L [id number] #### [facility] [address] [place] [address] URIC ACIDon 02-09-2023 Magnesium [Mass/Vol] 5.1 mg/dL Normal 4.4-7.[address] [facility] Comment on above: Performed By: #### L [id number] ####[facility] (BEAKER)[address] [place] [address] Patient Letter FTon 2022 Patient Letter [facility] (Inserted Image. Lacy ble to display) February 02, 2023 VISHAL DUKE [address] [place] [address] : 1960 Dear Vishal, This is a reminder that you are due for an appointment with [place] [facility]. Please contact our office at [phone] to schedule your 10 year colon recall Thank you, [place] [facility] Normal [facility] FK506 (TACROLIMUS) WHOLE BLO ODon 08-21-2022 Tacrolimus (FK506), Blood 6.0 ng/mL Normal 2.0-20.0 [facility] Comment on above: Result Comment: Trou gh (immediately following transplant) 15.0 . Trough (steady state, 2 weeks or more after transplant): 3.0 - 8.0 . Performed by LC-MS/MS technology. Performed By: #### P HOS, URIC, MG, CMP, DBIL, LIPID #### [facility] [address] [place] [address] Dr. Karla Lagos BK VIRUS PCR QUANTon 023 BKV DNA QUANT PCR PLASMA Negative Normal Negative [facility] Comment on above: Result Comment: No B K DNA detected. . The linear range of the assay is 22 - 100,000,000 IU/mL. Performed By: #### P HOS, URIC, MG, CMP, DBIL, LIPID #### [facility] [address] [place] [address] Dr. Karla Lagos Log10 BKV DNA Plasma Normal [facility] Comment on above: Performed By: #### P HOS, URIC, MG, CMP, DBIL, LIPID #### [facility] [address] [place] [address] Dr. Karla Lagos BILIRUBIN CONJUGATED (DIRECT )on 08-18-2022 BILI, CONJUGATED 0.2 mg/dL Normal 0.0-0.2 [facility] Comment on above: Performed By: #### P HOS, URIC, MG, CMP, DBIL, LIPID #### [facility] [address] [place] [address] Dr. Karla Lagos CBC AUTO DIFFon 08-18-2022 BASO # 0.1 103/ul Normal 0.0-0.1 [facility] Comment on above: Performed By: #### P HOS, URIC, MG, CMP, DBIL, LIPID #### [facility] [address] [place] [address] Dr. Karla Lagos Basophils/100 WBC (Bld) 1.0 % Normal 0.2-2.0 [facility] Comment on above: Performed By: #### P HOS, URIC, MG, CMP, DBIL, LIPID #### [facility] [address] [place] [address] Dr. Karla Lagos EO # 0.1 103/ul Normal 0.0-0.7 [facility] Comment on above: Performed By: #### P HOS, URIC, MG, CMP, DBIL, LIPID #### [facility] [address] [place] [address] Dr. Karla Lagos Eosinophils/100 WBC (Bld) 1.3 % Normal 0.9-7.0 [facility] Comment on above: Performed By: #### P HOS, URIC, MG, CMP, DBIL, LIPID #### [facility] [address] [place] [address] Dr. Karla Lagos Erythrocyte distribution width (RBC) [Ratio] 14.0 % Normal 11.0-15.0 [facility] Comment on above: Performed By: #### P HOS, URIC, MG, CMP, DBIL, LIPID #### [facility] [address] [place] [address] Dr. Karla Lagos Hematocrit (Bld) [Volume fraction] 52.7 % Normal 42.0-54.0 [facility] Comment on above: Performed By: #### P HOS, URIC, MG, CMP, DBIL, LIPID #### [facility] [address] [place] [address] Dr. Karla Lagos Hemoglobin (Bld) [Mass/Vol] 17.0 g/dL Normal 14.0-18.0 [facility] Comment on above: Performed By: #### P HOS, URIC, MG, CMP, DBIL, LIPID #### [facility] [address] [place] [address] Dr. Karla Lagos IG # 0.03 10e3/ul Normal 0.00-0.03 [facility] Comment on above: Performed By: #### P HOS, URIC, MG, CMP, DBIL, LIPID #### [facility] [address] [place] [address] Dr. Karla Lagos IG % 0.4 % Normal 0.0-0.5 [facility] Comment on above: Performed By: #### P HOS, URIC, MG, CMP, DBIL, LIPID #### [facility] [address] [place] [address] Dr. Karla Lagos LYMPH # 1.1 103/ul Critically low 1.2-3.8 [facility] Comment on above: Performed By: #### P HOS, URIC, MG, CMP, DBIL, LIPID #### [facility] [address] [place] [address] Dr. Karla Lagos Lymphocytes/100 WBC (Bld) 16.0 % Critically low 20.5-60.0 [facility] Comment on above: Performed By: #### P HOS, URIC, MG, CMP, DBIL, LIPID #### [facility] [address] [place] [address] Dr. Karla Lagos MANUAL DIFF REQ NO Normal [facility] Comment on above: Performed By: #### P HOS, URIC, MG, CMP, DBIL, LIPID #### [facility] [address] [place] [address] Dr. Karla Lagos MCH (RBC) [Entitic mass] 29.9 pg Normal 25.9-34.0 [facility] Comment on above: Performed By: #### P HOS, URIC, MG, CMP, DBIL, LIPID #### [facility] [address] [place] [address] Dr. Karla Lagos MCHC (RBC) [Mass/Vol] 32.3 g/dL Normal 29.9-35.2 [facility] Comment on above: Performed By: #### P HOS, URIC, MG, CMP, DBIL, LIPID #### [facility] [address] [place] [address] Dr. Karla Lagos MCV (RBC) [Entitic vol] 92.6 fL Normal 80.0-94.0 [facility] Comment on above: Performed By: #### P HOS, URIC, MG, CMP, DBIL, LIPID #### [facility] [address] [place] [address] Dr. Karla Lagos MONO # 0.7 103/ul Normal 0.3-0.8 [facility] Comment on above: Performed By: #### P HOS, URIC, MG, CMP, DBIL, LIPID #### [facility] [address] [place] [address] Dr. Karla Lagos Monocytes/100 WBC (Bld) 10.6 % Normal 1.7-12.0 [facility] Comment on above: Performed By: #### P HOS, URIC, MG, CMP, DBIL, LIPID #### [facility] [address] [place] [address] Dr. Karla Lagos NEUT # 5.0 103/ul Normal 1.4-6.5 [facility] Comment on above: Performed By: #### P HOS, URIC, MG, CMP, DBIL, LIPID #### [facility] [address] [place] [address] Dr. Karla Lagos Neutrophils/100 WBC (Bld) 70.7 % Normal 43.0-75.0 [facility] Comment on above: Performed By: #### P HOS, URIC, MG, CMP, DBIL, LIPID #### [facility] [address] [address] [address] Karla Lagos Platelet mean volume (Bld) [Entitic vol] 10.3 fL Normal 9.5-13.5 [facility] Comment on above: Performed By: #### P HOS, URIC, MG, CMP, DBIL, LIPID #### [facility] [address] [place] [address] Dr. Karla Lagos PLT 263 103/ul Normal 150-450 [facility] Comment on above: Performed By: #### P HOS, URIC, MG, CMP, DBIL, LIPID #### [facility] [address] [place] [address] Dr. Karla Lagos RBC 5.69 106/ul Normal 4.70-6.10 [facility] Comment on above: Performed By: #### P HOS, URIC, MG, CMP, DBIL, LIPID #### [facility] [address] [place] [address] Dr. Karla Lagos WBC 7.0 103/ul Normal 4.0-11.0 [facility] Comment on above: Performed By: #### P HOS, URIC, MG, CMP, DBIL, LIPID #### [facility] [address] [place] [address] Dr. Karla Lagos LIPID PROFILEon 08-18-2022 CHOL-HDL RATIO NORM SEE BELOW Normal [facility] Comment on above: Result Comment: 3.3 - 4.4 LOW RISK 4.4 - 7.1 AVERAGE RISK 7.1 - 11.0 MODERATE RISK >11.0 HIGH RISK Performed By: #### P HOS, URIC, MG, CMP, DBIL, LIPID #### [facility] [address] [address] [address] Karla Lagos Cholesterol [Mass/Vol] 137 mg/dL Normal <=200 [facility] Comment on above: Performed By: #### P HOS, URIC, MG, CMP, DBIL, LIPID #### [facility] [address] [address] [address] Karla Lagos Cholesterol in HDL [Mass/Vol] 45 mg/dL Normal 40-60 [facility] Comment on above: Performed By: #### P HOS, URIC, MG, CMP, DBIL, LIPID #### [facility] [address] [address] [address] Karla Lagos Cholesterol in LDL [Mass/Vol] 59.0 mg/dL Normal [facility] Comment on above: Performed By: #### P HOS, URIC, MG, CMP, DBIL, LIPID #### [facility] [address] [place] [address] Dr. Karla Lagos Cholesterol.total/Ch olesterol in HDL [Mass ratio] 3.0 {ratio} Normal [facility] Comment on above: Performed By: #### P HOS, URIC, MG, CMP, DBIL, LIPID #### [facility] [address] [place] [address] Dr. Karla Lagos HDL NORMAL > or = 60 mg/dl - LO W CARDIOVASCULAR RISK <40 mg/dl - HIGH CARDIOVASCULAR RISK Normal [facility] Comment on above: Performed By: #### P HOS, URIC, MG, CMP, DBIL, LIPID #### [facility] [address] [place] [address] Dr. Karla Lagos LDL CALC NORMAL SEE BELOW Normal [facility] Comment on above: Result Comment: <100 mg/dl OPTIMAL 100 - 129 mg/dl NEAR OR ABOVE OPTIMAL 130 - 159 mg/dl BORDERLINE HIGH 160 - 189 mg/dl HIGH >190 mg/dl VERY HIGH Performed By: #### P HOS, URIC, MG, CMP, DBIL, LIPID #### [facility] [address] [place] [address] Dr. Karla Lagos Triglyceride [Mass/Vol] 165 mg/dL Critically high <=150 [facility] Comment on above: Performed By: #### P HOS, URIC, MG, CMP, DBIL, LIPID #### [facility] [address] [place] [address] Dr. Karla Lagos VLDL CALC 33.0 mg/dL Normal [facility] Comment on above: Performed By: #### P HOS, URIC, MG, CMP, DBIL, LIPID #### [facility] [address] [place] [address] Dr. Karla Lagos MAGNESIUMon 08-18-2022 Magnesium [Mass/Vol] 1.7 mg/dL Critically low 1.8-2.4 [facility] Comment on above: Performed By: #### P HOS, URIC, MG, CMP, DBIL, LIPID #### [facility] [address] [place] [address] Dr. Karla Lagos PHOSPHORUSon 08-18-2022 Phosphate [Mass/Vol] 3.6 mg/dL Normal 2.6-4.7 [facility] Comment on above: Performed By: #### P HOS, URIC, MG, CMP, DBIL, LIPID #### [facility] [address] [place] [address] Dr. Karla Lagos PROF 14(COMP METB)on 023 Albumin [Mass/Vol] 4.0 g/dL Normal 3.4-5.0 [facility] Comment on above: Performed By: #### P HOS, URIC, MG, CMP, DBIL, LIPID #### [facility] [address] [place] [address] Dr. Karla Lagos Albumin/Globulin [Mass ratio] 1.1 {ratio} Normal [facility] Comment on above: Performed By: #### P HOS, URIC, MG, CMP, DBIL, LIPID #### [facility] [address] [place] [address] Dr. Karla Lagos ALP [Catalytic activity/Vol] 96 U/L Normal 46-116 [facility] Comment on above: Performed By: #### P HOS, URIC, MG, CMP, DBIL, LIPID #### [facility] [address] [address] [address] Karla Lagos ALT [Catalytic activity/Vol] 42 U/L Normal 16-63 [facility] Comment on above: Performed By: #### P HOS, URIC, MG, CMP, DBIL, LIPID #### [facility] [address] [address] [address] Karla Lagos Anion gap [Moles/Vol] 12.9 mmol/L Normal [facility] Comment on above: Performed By: #### P HOS, URIC, MG, CMP, DBIL, LIPID #### [facility] [address] [place] [address] Dr. Karla Lagos AST [Catalytic activity/Vol] 22 U/L Normal 15-37 [facility] Comment on above: Performed By: #### P HOS, URIC, MG, CMP, DBIL, LIPID #### [facility] [address] [place] [address] Dr. Karla Lagos Bilirubin [Mass/Vol] 0.7 mg/dL Normal 0.2-1.0 [facility] Comment on above: Performed By: #### P HOS, URIC, MG, CMP, DBIL, LIPID #### [facility] [address] [place] [address] Dr. Karla Lagos Calcium [Mass/Vol] 9.4 mg/dL Normal 8.5-10.1 [facility] Comment on above: Performed By: #### P HOS, URIC, MG, CMP, DBIL, LIPID #### [facility] [address] [address] [address] Karla Lagos Chloride [Moles/Vol] 103 mmol/L Normal 98-107 [facility] Comment on above: Performed By: #### P HOS, URIC, MG, CMP, DBIL, LIPID #### [facility] [address] [place] [address] Dr. Karla Lagos CO2 [Moles/Vol] 27.8 mmol/L Normal 21.0-32.0 [facility] Comment on above: Performed By: #### P HOS, URIC, MG, CMP, DBIL, LIPID #### [facility] [address] [address] [address] Karla Lagos Creatinine [Mass/Vol] 1.28 mg/dL Normal 0.70-1.30 [facility] Comment on above: Performed By: #### P HOS, URIC, MG, CMP, DBIL, LIPID #### [facility] [address] [place] [address] Dr. Karla Lagos EGFR-AF IVORIAN >60 Normal >=60 [facility] Comment on above: Performed By: #### P HOS, URIC, MG, CMP, DBIL, LIPID #### [facility] [address] [place] [address] Dr. Karla Lagos EGFR-NON AF IVORIAN 57 mL/min/1.73m2 Critically low >=60 [facility] Comment on above: Performed By: #### P HOS, URIC, MG, CMP, DBIL, LIPID #### [facility] [address] [place] [address] Dr. Karla Lagos Globulin (S) [Mass/Vol] 3.5 g/dL Normal [facility] Comment on above: Performed By: #### P HOS, URIC, MG, CMP, DBIL, LIPID #### [facility] [address] [place] [address] Dr. Karla Lagos Glucose [Mass/Vol] 123 mg/dL Critically high 74-106 T [facility] Comment on above: Performed By: #### P HOS, URIC, MG, CMP, DBIL, LIPID #### [facility] [address] [place] [address] Dr. Karla Lagos Potassium [Moles/Vol] 4.7 mmol/L Normal 3.5-5.1 [facility] Comment on above: Performed By: #### P HOS, URIC, MG, CMP, DBIL, LIPID #### [facility] [address] [place] [address] Dr. Karla Lagos Protein [Mass/Vol] 7.5 g/dL Normal 6.4-8.2 [facility] Comment on above: Performed By: #### P HOS, URIC, MG, CMP, DBIL, LIPID #### [facility] [address] [address] [address] Karla Lagos Sodium [Moles/Vol] 139 mmol/L Normal 136-145 [facility] Comment on above: Performed By: #### P HOS, URIC, MG, CMP, DBIL, LIPID #### [facility] [address] [place] [address] Dr. Karla Lagos Urea nitrogen [Mass/Vol] 22.0 mg/dL Critically high 7.0-18.0 [facility] Comment on above: Performed By: #### P HOS, URIC, MG, CMP, DBIL, LIPID #### [facility] [address] [place] [address] Dr. Karla Lagos Urea nitrogen/Creatinine [Mass ratio] 17.2 mg/mg Normal [facility] Comment on above: Performed By: #### P HOS, URIC, MG, CMP, DBIL, LIPID #### [facility] [address] [place] [address] Dr. Karla Lagos URIC ACID SERUMon 08-18-2022 Urate [Mass/Vol] 4.8 mg/dL Normal 3.5-7.2 [facility] Comment on above: Performed By: #### P HOS, URIC, MG, CMP, DBIL, LIPID #### [facility] [address] [place] [address] Dr. Karla Lagos BK VIRUS PCR QUANTon 023 BKV DNA QUANT PCR PLASMA Negative Normal Negative [facility] Comment on above: Result Comment: No B K DNA detected. . The linear range of the assay is 22 - 100,000,000 IU/mL. Performed By: #### B KVIRUS #### [facility] [address] [place] [address] Dr. Karla Lagos Log10 BKV DNA Plasma Normal [facility] Comment on above: Performed By: #### B KVIRUS #### [facility] [address] [place] [address] Dr. Karla Lagos FK506 (TACROLIMUS) WHOLE BLO ODon 07-21-2022 Tacrolimus (FK506), Blood 6.1 ng/mL Normal 2.0-20.0 [facility] Comment on above: Result Comment: Trou gh (immediately following transplant) 15.0 . Trough (steady state, 2 weeks or more after transplant): 3.0 - 8.0 . Performed by LC-MS/MS technology. Performed By: #### P HOS, URIC, MG, CMP, DBIL, LIPID #### [facility] [address] [place] [address] Dr. Karla Lagos BILIRUBIN CONJUGATED (DIRECT )on 07-19-2022 BILI, CONJUGATED 0.2 mg/dL Normal 0.0-0.2 [facility] Comment on above: Performed By: #### P HOS, URIC, MG, CMP, DBIL, LIPID #### [facility] [address] [place] [address] Dr. Karla Lagos CBC AUTO DIFFon 07-19-2022 BASO # 0.0 103/ul Normal 0.0-0.1 [facility] Comment on above: Performed By: #### P HOS, URIC, MG, CMP, DBIL, LIPID #### [facility] [address] [place] [address] Dr. Karla Lagos Basophils/100 WBC (Bld) 0.4 % Normal 0.2-2.0 [facility] Comment on above: Performed By: #### P HOS, URIC, MG, CMP, DBIL, LIPID #### [facility] [address] [place] [address] Dr. Karla Lagos EO # 0.1 103/ul Normal 0.0-0.7 [facility] Comment on above: Performed By: #### P HOS, URIC, MG, CMP, DBIL, LIPID #### [facility] [address] [place] [address] Dr. Karla Lagos Eosinophils/100 WBC (Bld) 1.6 % Normal 0.9-7.0 [facility] Comment on above: Performed By: #### P HOS, URIC, MG, CMP, DBIL, LIPID #### [facility] [address] [place] [address] Dr. Karla Lagos Erythrocyte distribution width (RBC) [Ratio] 14.2 % Normal 11.0-15.0 [facility] Comment on above: Performed By: #### P HOS, URIC, MG, CMP, DBIL, LIPID #### [facility] [address] [place] [address] Dr. Karla Lagos Hematocrit (Bld) [Volume fraction] 49.8 % Normal 42.0-54.0 [facility] Comment on above: Performed By: #### P HOS, URIC, MG, CMP, DBIL, LIPID #### [facility] [address] [place] [address] Dr. Karla Lagos Hemoglobin (Bld) [Mass/Vol] 16.6 g/dL Normal 14.0-18.0 [facility] Comment on above: Performed By: #### P HOS, URIC, MG, CMP, DBIL, LIPID #### [facility] [address] [place] [address] Dr. Karla Lagos IG # 0.03 10e3/ul Normal 0.00-0.03 [facility] Comment on above: Performed By: #### P HOS, URIC, MG, CMP, DBIL, LIPID #### [facility] [address] [place] [address] Dr. Karla Lagos IG % 0.4 % Normal 0.0-0.5 [facility] Comment on above: Performed By: #### P HOS, URIC, MG, CMP, DBIL, LIPID #### [facility] [address] [place] [address] Dr. Karla Lagos LYMPH # 1.1 103/ul Critically low 1.2-3.8 [facility] Comment on above: Performed By: #### P HOS, URIC, MG, CMP, DBIL, LIPID #### [facility] [address] [place] [address] Dr. Karla Lagos Lymphocytes/100 WBC (Bld) 14.9 % Critically low 20.5-60.0 [facility] Comment on above: Performed By: #### P HOS, URIC, MG, CMP, DBIL, LIPID #### [facility] [address] [place] [address] Dr. Karla Lagos MANUAL DIFF REQ NO Normal [facility] Comment on above: Performed By: #### P HOS, URIC, MG, CMP, DBIL, LIPID #### [facility] [address] [place] [address] Dr. Karla Lagos MCH (RBC) [Entitic mass] 30.4 pg Normal 25.9-34.0 [facility] Comment on above: Performed By: #### P HOS, URIC, MG, CMP, DBIL, LIPID #### [facility] [address] [place] [address] Dr. Karla Lagos MCHC (RBC) [Mass/Vol] 33.3 g/dL Normal 29.9-35.2 [facility] Comment on above: Performed By: #### P HOS, URIC, MG, CMP, DBIL, LIPID #### [facility] [address] [place] [address] Dr. Karla Lagos MCV (RBC) [Entitic vol] 91.2 fL Normal 80.0-94.0 [facility] Comment on above: Performed By: #### P HOS, URIC, MG, CMP, DBIL, LIPID #### [facility] [address] [place] [address] Dr. Karla Lagos MONO # 0.7 103/ul Normal 0.3-0.8 [facility] Comment on above: Performed By: #### P HOS, URIC, MG, CMP, DBIL, LIPID #### [facility] [address] [place] [address] Dr. Karla Lagos Monocytes/100 WBC (Bld) 10.3 % Normal 1.7-12.0 [facility] Comment on above: Performed By: #### P HOS, URIC, MG, CMP, DBIL, LIPID #### [facility] [address] [place] [address] Dr. Karla Lagos NEUT # 5.1 103/ul Normal 1.4-6.5 [facility] Comment on above: Performed By: #### P HOS, URIC, MG, CMP, DBIL, LIPID #### [facility] [address] [place] [address] Dr. Karla Lagos Neutrophils/100 WBC (Bld) 72.4 % Normal 43.0-75.0 [facility] Comment on above: Performed By: #### P HOS, URIC, MG, CMP, DBIL, LIPID #### [facility] [address] [address] [address] Karla Lagos Platelet mean volume (Bld) [Entitic vol] 10.4 fL Normal 9.5-13.5 [facility] Comment on above: Performed By: #### P HOS, URIC, MG, CMP, DBIL, LIPID #### [facility] [address] [address] [address] Karla Lagos PLT 248 103/ul Normal 150-450 [facility] Comment on above: Performed By: #### P HOS, URIC, MG, CMP, DBIL, LIPID #### [facility] [address] [place] [address] Dr. Karla Lagos RBC 5.46 106/ul Normal 4.70-6.10 [facility] Comment on above: Performed By: #### P HOS, URIC, MG, CMP, DBIL, LIPID #### [facility] [address] [address] [address] Karla Lagos WBC 7.1 103/ul Normal 4.0-11.0 [facility] Comment on above: Performed By: #### P HOS, URIC, MG, CMP, DBIL, LIPID #### [facility] [address] [address] [address] Karla Lagos LIPID PROFILEon 07-19-2022 CHOL-HDL RATIO NORM SEE BELOW Normal [facility] Comment on above: Result Comment: 3.3 - 4.4 LOW RISK 4.4 - 7.1 AVERAGE RISK 7.1 - 11.0 MODERATE RISK >11.0 HIGH RISK Performed By: #### P HOS, URIC, MG, CMP, DBIL, LIPID #### [facility] [address] [address] [address] Karla Lagos Cholesterol [Mass/Vol] 130 mg/dL Normal <=200 [facility] Comment on above: Performed By: #### P HOS, URIC, MG, CMP, DBIL, LIPID #### [facility] [address] [address] [address] Karla Lagos Cholesterol in HDL [Mass/Vol] 43 mg/dL Normal 40-60 [facility] Comment on above: Performed By: #### P HOS, URIC, MG, CMP, DBIL, LIPID #### [facility] [address] [address] [address] Karla Lagos Cholesterol in LDL [Mass/Vol] 61.8 mg/dL Normal [facility] Comment on above: Performed By: #### P HOS, URIC, MG, CMP, DBIL, LIPID #### [facility] [address] [address] [address] Karla Lagos Cholesterol.total/Ch olesterol in HDL [Mass ratio] 3.0 {ratio} Normal [facility] Comment on above: Performed By: #### P HOS, URIC, MG, CMP, DBIL, LIPID #### [facility] [address] [address] [address] Karla Lagos HDL NORMAL > or = 60 mg/dl - LO W CARDIOVASCULAR RISK <40 mg/dl - HIGH CARDIOVASCULAR RISK Normal [facility] Comment on above: Performed By: #### P HOS, URIC, MG, CMP, DBIL, LIPID #### [facility] [address] [address] [address] Karla Lagos LDL CALC NORMAL SEE BELOW Normal [facility] Comment on above: Result Comment: <100 mg/dl OPTIMAL 100 - 129 mg/dl NEAR OR ABOVE OPTIMAL 130 - 159 mg/dl BORDERLINE HIGH 160 - 189 mg/dl HIGH >190 mg/dl VERY HIGH Performed By: #### P HOS, URIC, MG, CMP, DBIL, LIPID #### [facility] [address] [address] [address] Karla Lagos Triglyceride [Mass/Vol] 126 mg/dL Normal <=150 [facility] Comment on above: Performed By: #### P HOS, URIC, MG, CMP, DBIL, LIPID #### [facility] [address] [address] [address] Karla Lagos VLDL CALC 25.2 mg/dL Normal [facility] Comment on above: Performed By: #### P HOS, URIC, MG, CMP, DBIL, LIPID #### [facility] [address] [place] [address] Dr. Karla Lagos MAGNESIUMon 07-19-2022 Magnesium [Mass/Vol] 1.7 mg/dL Critically low 1.8-2.4 [facility] Comment on above: Performed By: #### P HOS, URIC, MG, CMP, DBIL, LIPID #### [facility] [address] [place] [address] Dr. Karla Lagos PHOSPHORUSon 07-19-2022 Phosphate [Mass/Vol] 3.1 mg/dL Normal 2.6-4.7 [facility] Comment on above: Performed By: #### P HOS, URIC, MG, CMP, DBIL, LIPID #### [facility] [address] [place] [address] Dr. Karla Lagos PROF 14(COMP METB)on 023 Albumin [Mass/Vol] 4.0 g/dL Normal 3.4-5.0 [facility] Comment on above: Performed By: #### P HOS, URIC, MG, CMP, DBIL, LIPID #### [facility] [address] [place] [address] Dr. Karla Lagos Albumin/Globulin [Mass ratio] 1.3 {ratio} Normal [facility] Comment on above: Performed By: #### P HOS, URIC, MG, CMP, DBIL, LIPID #### [facility] [address] [place] [address] Dr. Karla Lagos ALP [Catalytic activity/Vol] 79 U/L Normal 46-116 [facility] Comment on above: Performed By: #### P HOS, URIC, MG, CMP, DBIL, LIPID #### [facility] [address] [place] [address] Dr. Karla Lagos ALT [Catalytic activity/Vol] 40 U/L Normal 16-63 [facility] Comment on above: Performed By: #### P HOS, URIC, MG, CMP, DBIL, LIPID #### [facility] [address] [address] [address] Karla Lagos Anion gap [Moles/Vol] 12.8 mmol/L Normal [facility] Comment on above: Performed By: #### P HOS, URIC, MG, CMP, DBIL, LIPID #### [facility] [address] [address] [address] Karla Lagos AST [Catalytic activity/Vol] 24 U/L Normal 15-37 [facility] Comment on above: Performed By: #### P HOS, URIC, MG, CMP, DBIL, LIPID #### [facility] [address] [address] [address] Karla Lagos Bilirubin [Mass/Vol] 0.7 mg/dL Normal 0.2-1.0 [facility] Comment on above: Performed By: #### P HOS, URIC, MG, CMP, DBIL, LIPID #### [facility] [address] [place] [address] Dr. Karla Lagos Calcium [Mass/Vol] 9.3 mg/dL Normal 8.5-10.1 [facility] Comment on above: Performed By: #### P HOS, URIC, MG, CMP, DBIL, LIPID #### [facility] [address] [place] [address] Dr. Karla Lagos Chloride [Moles/Vol] 105 mmol/L Normal 98-107 [facility] Comment on above: Performed By: #### P HOS, URIC, MG, CMP, DBIL, LIPID #### [facility] [address] [place] [address] Dr. Karla Lagos CO2 [Moles/Vol] 28.4 mmol/L Normal 21.0-32.0 [facility] Comment on above: Performed By: #### P HOS, URIC, MG, CMP, DBIL, LIPID #### [facility] [address] [place] [address] Dr. Karla Lagos Creatinine [Mass/Vol] 1.23 mg/dL Normal 0.70-1.30 [facility] Comment on above: Performed By: #### P HOS, URIC, MG, CMP, DBIL, LIPID #### [facility] [address] [address] [address] Karla Lagos EGFR-AF IVORIAN >60 Normal >=60 [facility] Comment on above: Performed By: #### P HOS, URIC, MG, CMP, DBIL, LIPID #### [facility] [address] [address] [address] Karla Lagos EGFR-NON AF IVORIAN =60 Normal >=60 [facility] Comment on above: Performed By: #### P HOS, URIC, MG, CMP, DBIL, LIPID #### [facility] [address] [address] [address] Karla Lagos Globulin (S) [Mass/Vol] 3.1 g/dL Normal [facility] Comment on above: Performed By: #### P HOS, URIC, MG, CMP, DBIL, LIPID #### [facility] [address] [place] [address] Dr. Karla Lagos Glucose [Mass/Vol] 114 mg/dL Critically high 74-106 [facility] Comment on above: Performed By: #### P HOS, URIC, MG, CMP, DBIL, LIPID #### [facility] [address] [address] [address] Karla Lagos Potassium [Moles/Vol] 4.2 mmol/L Normal 3.5-5.1 [facility] Comment on above: Performed By: #### P HOS, URIC, MG, CMP, DBIL, LIPID #### [facility] [address] [address] [address] Karla Lagos Protein [Mass/Vol] 7.1 g/dL Normal 6.4-8.2 [facility] Comment on above: Performed By: #### P HOS, URIC, MG, CMP, DBIL, LIPID #### [facility] [address] [place] [address] Dr. Karla Lagos Sodium [Moles/Vol] 142 mmol/L Normal 136-145 [facility] Comment on above: Performed By: #### P HOS, URIC, MG, CMP, DBIL, LIPID #### [facility] [address] [address] [address] Karla Lagos Urea nitrogen [Mass/Vol] 15.0 mg/dL Normal 7.0-18.0 [facility] Comment on above: Performed By: #### P HOS, URIC, MG, CMP, DBIL, LIPID #### [facility] [address] [place] [address] Dr. Karla Lagos Urea nitrogen/Creatinine [Mass ratio] 12.2 mg/mg Normal [facility] Comment on above: Performed By: #### P HOS, URIC, MG, CMP, DBIL, LIPID #### [facility] [address] [place] [address] Dr. Karla Lagos URIC ACID SERUMon 07-19-2022 Urate [Mass/Vol] 5.1 mg/dL Normal 3.5-7.2 [facility] Comment on above: Performed By: #### P HOS, URIC, MG, CMP, DBIL, LIPID #### [facility] [address] [place] [address] Dr. Karla Lagos FK506 (TACROLIMUS) WHOLE BLO ODon 06-04-2022 Tacrolimus (FK506), Blood 5.1 ng/mL Normal 2.0-20.0 [facility] Comment on above: Result Comment: Trou gh (immediately following transplant) 15.0 . Trough (steady state, 2 weeks or more after transplant): 3.0 - 8.0 . Performed by LC-MS/MS technology. Performed By: #### P HOS, URIC, MG, CMP, DBIL, LIPID #### [facility] [address] [place] [address] Dr. Karla Lagos BK VIRUS PCR QUANTon 023 BKV DNA QUANT PCR PLASMA Negative Normal Negative [facility] Comment on above: Result Comment: No B K DNA detected. . The linear range of the assay is 22 - 100,000,000 IU/mL. Performed By: #### P HOS, URIC, MG, CMP, DBIL, LIPID #### [facility] [address] [place] [address] Dr. Karla Lgaos Log10 BKV DNA Plasma Normal [facility] Comment on above: Performed By: #### P HOS, URIC, MG, CMP, DBIL, LIPID #### [facility] [address] [place] [address] Dr. Karla Lagos BILIRUBIN CONJUGATED (DIRECT )on 06-01-2022 BILI, CONJUGATED 0.1 mg/dL Normal 0.0-0.2 [facility] Comment on above: Performed By: #### P HOS, URIC, MG, CMP, DBIL, LIPID #### [facility] [address] [place] [address] Dr. Karla Lagos CBC AUTO DIFFon 06-01-2022 BASO # 0.1 103/ul Normal 0.0-0.1 [facility] Comment on above: Performed By: #### P HOS, URIC, MG, CMP, DBIL, LIPID #### [facility] [address] [place] [address] Dr. Karla Lagos Basophils/100 WBC (Bld) 0.9 % Normal 0.2-2.0 [facility] Comment on above: Performed By: #### P HOS, URIC, MG, CMP, DBIL, LIPID #### [facility] [address] [place] [address] Dr. Karla Lagos EO # 0.1 103/ul Normal 0.0-0.7 [facility] Comment on above: Performed By: #### P HOS, URIC, MG, CMP, DBIL, LIPID #### [facility] [address] [place] [address] Dr. Karla Lagos Eosinophils/100 WBC (Bld) 1.6 % Normal 0.9-7.0 [facility] Comment on above: Performed By: #### P HOS, URIC, MG, CMP, DBIL, LIPID #### [facility] [address] [place] [address] Dr. Karla Lagso Erythrocyte distribution width (RBC) [Ratio] 13.4 % Normal 11.0-15.0 [facility] Comment on above: Performed By: #### P HOS, URIC, MG, CMP, DBIL, LIPID #### [facility] [address] [place] [address] Dr. Karla Lagos Hematocrit (Bld) [Volume fraction] 46.3 % Normal 42.0-54.0 [facility] Comment on above: Performed By: #### P HOS, URIC, MG, CMP, DBIL, LIPID #### [facility] [address] [place] [address] Dr. Karla Lagos Hemoglobin (Bld) [Mass/Vol] 15.4 g/dL Normal 14.0-18.0 [facility] Comment on above: Performed By: #### P HOS, URIC, MG, CMP, DBIL, LIPID #### [facility] [address] [place] [address] Dr. Karla Lagos IG # 0.10 10e3/ul Critically high 0.00-0.03 [facility] Comment on above: Performed By: #### P HOS, URIC, MG, CMP, DBIL, LIPID #### [facility] [address] [place] [address] Dr. Karla Lagos IG % 1.3 % Critically high 0.0-0.5 [facility] Comment on above: Performed By: #### P HOS, URIC, MG, CMP, DBIL, LIPID #### [facility] [address] [place] [address] Dr. Karla Lagos LYMPH # 1.0 103/ul Critically low 1.2-3.8 [facility] Comment on above: Performed By: #### P HOS, URIC, MG, CMP, DBIL, LIPID #### [facility] [address] [place] [address] Dr. Karla Lagos Lymphocytes/100 WBC (Bld) 12.8 % Critically low 20.5-60.0 [facility] Comment on above: Performed By: #### P HOS, URIC, MG, CMP, DBIL, LIPID #### [facility] [address] [place] [address] Dr. Karla Lagos MANUAL DIFF REQ NO Normal [facility] Comment on above: Performed By: #### P HOS, URIC, MG, CMP, DBIL, LIPID #### [facility] [address] [place] [address] Dr. Karla Laogs MCH (RBC) [Entitic mass] 30.4 pg Normal 25.9-34.0 [facility] Comment on above: Performed By: #### P HOS, URIC, MG, CMP, DBIL, LIPID #### [facility] [address] [place] [address] Dr. Karla Lagos MCHC (RBC) [Mass/Vol] 33.3 g/dL Normal 29.9-35.2 [facility] Comment on above: Performed By: #### P HOS, URIC, MG, CMP, DBIL, LIPID #### [facility] [address] [place] [address] Dr. Karla Lagos MCV (RBC) [Entitic vol] 91.3 fL Normal 80.0-94.0 [facility] Comment on above: Performed By: #### P HOS, URIC, MG, CMP, DBIL, LIPID #### [facility] [address] [place] [address] Dr. Karla Lagos MONO # 0.6 103/ul Normal 0.3-0.8 [facility] Comment on above: Performed By: #### P HOS, URIC, MG, CMP, DBIL, LIPID #### [facility] [address] [place] [address] Dr. Karla Lagos Monocytes/100 WBC (Bld) 8.6 % Normal 1.7-12.0 [facility] Comment on above: Performed By: #### P HOS, URIC, MG, CMP, DBIL, LIPID #### [facility] [address] [place] [address] Dr. Karla Lagos NEUT # 5.5 103/ul Normal 1.4-6.5 [facility] Comment on above: Performed By: #### P HOS, URIC, MG, CMP, DBIL, LIPID #### [facility] [address] [place] [address] Dr. Karla Lagos Neutrophils/100 WBC (Bld) 74.8 % Normal 43.0-75.0 [facility] Comment on above: Performed By: #### P HOS, URIC, MG, CMP, DBIL, LIPID #### [facility] [address] [place] [address] Dr. Karla Lagos Platelet mean volume (Bld) [Entitic vol] 9.6 fL Normal 9.5-13.5 [facility] Comment on above: Performed By: #### P HOS, URIC, MG, CMP, DBIL, LIPID #### [facility] [address] [address] [address] Karla Lagos PLT 312 103/ul Normal 150-450 [facility] Comment on above: Performed By: #### P HOS, URIC, MG, CMP, DBIL, LIPID #### [facility] [address] [address] [address] Karla Lagos RBC 5.07 106/ul Normal 4.70-6.10 [facility] Comment on above: Performed By: #### P HOS, URIC, MG, CMP, DBIL, LIPID #### [facility] [address] [address] [address] Karla Lagos WBC 7.4 103/ul Normal 4.0-11.0 [facility] Comment on above: Performed By: #### P HOS, URIC, MG, CMP, DBIL, LIPID #### [facility] [address] [address] [address] Karla Lagos LIPID PROFILEon 06-01-2022 CHOL-HDL RATIO NORM SEE BELOW Normal [facility] Comment on above: Result Comment: 3.3 - 4.4 LOW RISK 4.4 - 7.1 AVERAGE RISK 7.1 - 11.0 MODERATE RISK >11.0 HIGH RISK Performed By: #### P HOS, URIC, MG, CMP, DBIL, LIPID #### [facility] [address] [address] [address] Karla Lagos Cholesterol [Mass/Vol] 108 mg/dL Normal <=200 [facility] Comment on above: Performed By: #### P HOS, URIC, MG, CMP, DBIL, LIPID #### [facility] [address] [address] [address] Karla Lagos Cholesterol in HDL [Mass/Vol] 36 mg/dL Critically low 40-60 [facility] Comment on above: Performed By: #### P HOS, URIC, MG, CMP, DBIL, LIPID #### [facility] [address] [address] [address] Karla Lagos Cholesterol in LDL [Mass/Vol] 58.4 mg/dL Normal [facility] Comment on above: Performed By: #### P HOS, URIC, MG, CMP, DBIL, LIPID #### [facility] [address] [address] [address] Karla Lagos Cholesterol.total/Ch olesterol in HDL [Mass ratio] 3.0 {ratio} Normal [facility] Comment on above: Performed By: #### P HOS, URIC, MG, CMP, DBIL, LIPID #### [facility] [address] [address] [address] Karla Lagos HDL NORMAL > or = 60 mg/dl - LO W CARDIOVASCULAR RISK <40 mg/dl - HIGH CARDIOVASCULAR RISK Normal [facility] Comment on above: Performed By: #### P HOS, URIC, MG, CMP, DBIL, LIPID #### [facility] [address] [address] [address] Karla Lagos LDL CALC NORMAL SEE BELOW Normal [facility] Comment on above: Result Comment: <100 mg/dl OPTIMAL 100 - 129 mg/dl NEAR OR ABOVE OPTIMAL 130 - 159 mg/dl BORDERLINE HIGH 160 - 189 mg/dl HIGH >190 mg/dl VERY HIGH Performed By: #### P HOS, URIC, MG, CMP, DBIL, LIPID #### [facility] [address] [address] [address] Karla Lagos Triglyceride [Mass/Vol] 68 mg/dL Normal <=150 [facility] Comment on above: Performed By: #### P HOS, URIC, MG, CMP, DBIL, LIPID #### [facility] [address] [address] [address] Karla Lagos VLDL CALC 13.6 mg/dL Normal [facility] Comment on above: Performed By: #### P HOS, URIC, MG, CMP, DBIL, LIPID #### [facility] [address] [address] [address] Karla Lagos MAGNESIUMon 06-01-2022 Magnesium [Mass/Vol] 1.7 mg/dL Critically low 1.8-2.4 [facility] Comment on above: Performed By: #### P HOS, URIC, MG, CMP, DBIL, LIPID #### [facility] [address] [place] [address] Dr. Karla Lagos PHOSPHORUSon 06-01-2022 Phosphate [Mass/Vol] 3.7 mg/dL Normal 2.6-4.7 [facility] Comment on above: Performed By: #### P HOS, URIC, MG, CMP, DBIL, LIPID #### [facility] [address] [place] [address] Dr. Karla Lagos PROF 14(COMP METB)on 023 Albumin [Mass/Vol] 3.4 g/dL Normal 3.4-5.0 [facility] Comment on above: Performed By: #### P HOS, URIC, MG, CMP, DBIL, LIPID #### [facility] [address] [place] [address] Dr. Karla Lagos Albumin/Globulin [Mass ratio] 1.0 {ratio} Normal [facility] Comment on above: Performed By: #### P HOS, URIC, MG, CMP, DBIL, LIPID #### [facility] [address] [place] [address] Dr. Karla Lagos ALP [Catalytic activity/Vol] 92 U/L Normal 46-116 [facility] Comment on above: Performed By: #### P HOS, URIC, MG, CMP, DBIL, LIPID #### [facility] [address] [place] [address] Dr. Karla Lagos ALT [Catalytic activity/Vol] 33 U/L Normal 16-63 [facility] Comment on above: Performed By: #### P HOS, URIC, MG, CMP, DBIL, LIPID #### [facility] [address] [place] [address] Dr. Karla Lagos Anion gap [Moles/Vol] 12.7 mmol/L Normal [facility] Comment on above: Performed By: #### P HOS, URIC, MG, CMP, DBIL, LIPID #### [facility] [address] [place] [address] Dr. Karla Lagos AST [Catalytic activity/Vol] 21 U/L Normal 15-37 [facility] Comment on above: Performed By: #### P HOS, URIC, MG, CMP, DBIL, LIPID #### [facility] [address] [address] [address] Karla Lagos Bilirubin [Mass/Vol] 0.4 mg/dL Normal 0.2-1.0 [facility] Comment on above: Performed By: #### P HOS, URIC, MG, CMP, DBIL, LIPID #### [facility] [address] [place] [address] Dr. Karla Lagos Calcium [Mass/Vol] 9.0 mg/dL Normal 8.5-10.1 [facility] Comment on above: Performed By: #### P HOS, URIC, MG, CMP, DBIL, LIPID #### [facility] [address] [place] [address] Dr. Karla Lagos Chloride [Moles/Vol] 104 mmol/L Normal 98-107 [facility] Comment on above: Performed By: #### P HOS, URIC, MG, CMP, DBIL, LIPID #### [facility] [address] [place] [address] Dr. Karla Lagos CO2 [Moles/Vol] 28.7 mmol/L Normal 21.0-32.0 [facility] Comment on above: Performed By: #### P HOS, URIC, MG, CMP, DBIL, LIPID #### [facility] [address] [place] [address] Dr. Karla Lagos Creatinine [Mass/Vol] 1.15 mg/dL Normal 0.70-1.30 [facility] Comment on above: Performed By: #### P HOS, URIC, MG, CMP, DBIL, LIPID #### [facility] [address] [place] [address] Dr. Karla Lagos EGFR-AF IVORIAN >60 Normal >=60 [facility] Comment on above: Performed By: #### P HOS, URIC, MG, CMP, DBIL, LIPID #### [facility] [address] [address] [address] Karla Lagos EGFR-NON AF IVORIAN >60 Normal >=60 [facility] Comment on above: Performed By: #### P HOS, URIC, MG, CMP, DBIL, LIPID #### [facility] [address] [address] [address] Karla Lagos Globulin (S) [Mass/Vol] 3.3 g/dL Normal [facility] Comment on above: Performed By: #### P HOS, URIC, MG, CMP, DBIL, LIPID #### [facility] [address] [address] [address] Karla Lagos Glucose [Mass/Vol] 112 mg/dL Critically high 74-106 [facility] Comment on above: Performed By: #### P HOS, URIC, MG, CMP, DBIL, LIPID #### [facility] [address] [place] [address] Dr. Karla Lagos Potassium [Moles/Vol] 4.4 mmol/L Normal 3.5-5.1 [facility] Comment on above: Performed By: #### P HOS, URIC, MG, CMP, DBIL, LIPID #### [facility] [address] [address] [address] Karla Lagos Protein [Mass/Vol] 6.7 g/dL Normal 6.4-8.2 [facility] Comment on above: Performed By: #### P HOS, URIC, MG, CMP, DBIL, LIPID #### [facility] [address] [address] [address] Karla Lagos Sodium [Moles/Vol] 141 mmol/L Normal 136-145 [facility] Comment on above: Performed By: #### P HOS, URIC, MG, CMP, DBIL, LIPID #### [facility] [address] [place] [address] Dr. Karla Lagos Urea nitrogen [Mass/Vol] 17.0 mg/dL Normal 7.0-18.0 [facility] Comment on above: Performed By: #### P HOS, URIC, MG, CMP, DBIL, LIPID #### [facility] [address] [address] [address] Karla Lagos Urea nitrogen/Creatinine [Mass ratio] 14.8 mg/mg Normal [facility] Comment on above: Performed By: #### P HOS, URIC, MG, CMP, DBIL, LIPID #### [facility] [address] [place], [place] [address] Dr. Karla Lagos URIC ACID SERUMon 06-01-2022 Urate [Mass/Vol] 5.3 mg/dL Normal 3.5-7.2 [facility] Comment on above: Performed By: #### P HOS, URIC, MG, CMP, DBIL, LIPID #### [facility] [id number] Karla Lagos NM STRESS/REST MULTIon 05-30 NM STRESS/REST MULTI Patient: VISHAL DKUE Exam Date: 05/30/2022 : 1960 Gender:M Ordering : DR FEDERICO CHESTER M.D. Admission #: [id number] Family : Order #: [id number] CLICK HERE TO VIEW EXAM RADIOLOGY REPORT [...] Basal inferoseptal. Basal inferior. Mid-anteroseptal. Mid-inferoseptal. Mid-inferior. Deer. SIZE: Large (5 or more segments). SEVERITY: [...] MD on 06/01/2022 at 06:10 Normal [facility] FK506 (TACROLIMUS) WHOLE BLO ODon 05-06-2022 Tacrolimus (FK506), Blood 5.4 ng/mL Normal 2.0-20.0 [facility] Comment on above: Result Comment: Trou gh (immediately following transplant) 15.0 . Trough (steady state, 2 weeks or more after transplant): 3.0 - 8.0 . Performed by LC-MS/MS technology. Performed By: #### P HOS, URIC, MG, CMP, DBIL, LIPID #### [facility] [address] [place] [address] Dr. Karla Lagos BK VIRUS PCR QUANTon 023 BKV DNA QUANT PCR PLASMA Negative Normal Negative [facility] Comment on above: Result Comment: No B K DNA detected. . The linear range of the assay is 22 - 100,000,000 IU/mL. Performed By: #### P HOS, URIC, MG, CMP, DBIL, LIPID #### [facility] [address] [place] [address] Dr. Karla Lagos Log10 BKV DNA Plasma Normal [facility] Comment on above: Performed By: #### P HOS, URIC, MG, CMP, DBIL, LIPID #### [facility] [address] [place] [address] Dr. Karla Lagos BILIRUBIN CONJUGATED (DIRECT )on 05-03-2022 BILI, CONJUGATED 0.2 mg/dL Normal 0.0-0.2 [facility] Comment on above: Performed By: #### P HOS, URIC, MG, CMP, DBIL, LIPID #### [facility] [address] [place] [address] Dr. Karla Lagos CBC AUTO DIFFon 05-03-2022 BASO # 0.1 103/ul Normal 0.0-0.1 [facility] Comment on above: Performed By: #### P HOS, URIC, MG, CMP, DBIL, LIPID #### [facility] [address] [place] [address] Dr. Karla Lagos Basophils/100 WBC (Bld) 0.7 % Normal 0.2-2.0 [facility] Comment on above: Performed By: #### P HOS, URIC, MG, CMP, DBIL, LIPID #### [facility] [address] [place] [address] Dr. Karla Lagos EO # 0.1 103/ul Normal 0.0-0.7 [facility] Comment on above: Performed By: #### P HOS, URIC, MG, CMP, DBIL, LIPID #### [facility] [address] [place] [address] Dr. Karla Lagos Eosinophils/100 WBC (Bld) 1.6 % Normal 0.9-7.0 [facility] Comment on above: Performed By: #### P HOS, URIC, MG, CMP, DBIL, LIPID #### [facility] [address] [place] [address] Dr. Karla Lagos Erythrocyte distribution width (RBC) [Ratio] 13.7 % Normal 11.0-15.0 [facility] Comment on above: Performed By: #### P HOS, URIC, MG, CMP, DBIL, LIPID #### [facility] [address] [place] [address] Dr. Karla Lagos Hematocrit (Bld) [Volume fraction] 49.1 % Normal 42.0-54.0 [facility] Comment on above: Performed By: #### P HOS, URIC, MG, CMP, DBIL, LIPID #### [facility] [address] [place] [address] Dr. Karla Lagos Hemoglobin (Bld) [Mass/Vol] 16.5 g/dL Normal 14.0-18.0 [facility] Comment on above: Performed By: #### P HOS, URIC, MG, CMP, DBIL, LIPID #### [facility] [address] [place] [address] Dr. Karla Lagos IG # 0.05 10e3/ul Critically high 0.00-0.03 [facility] Comment on above: Performed By: #### P HOS, URIC, MG, CMP, DBIL, LIPID #### [facility] [address] [address] [address] Karla Lagos IG % 0.7 % Critically high 0.0-0.5 [facility] Comment on above: Performed By: #### P HOS, URIC, MG, CMP, DBIL, LIPID #### [facility] [address] [place] [address] Dr. Karla Lagos LYMPH # 1.0 103/ul Critically low 1.2-3.8 [facility] Comment on above: Performed By: #### P HOS, URIC, MG, CMP, DBIL, LIPID #### [facility] [address] [place] [address] Dr. Karla Lagos Lymphocytes/100 WBC (Bld) 13.7 % Critically low 20.5-60.0 [facility] Comment on above: Performed By: #### P HOS, URIC, MG, CMP, DBIL, LIPID #### [facility] [address] [place] [address] Dr. Karla Lagos MANUAL DIFF REQ NO Normal [facility] Comment on above: Performed By: #### P HOS, URIC, MG, CMP, DBIL, LIPID #### [facility] [address] [place] [address] Dr. Karla Lagos MCH (RBC) [Entitic mass] 30.9 pg Normal 25.9-34.0 [facility] Comment on above: Performed By: #### P HOS, URIC, MG, CMP, DBIL, LIPID #### [facility] [address] [place] [address] Dr. Karla Lagos MCHC (RBC) [Mass/Vol] 33.6 g/dL Normal 29.9-35.2 [facility] Comment on above: Performed By: #### P HOS, URIC, MG, CMP, DBIL, LIPID #### [facility] [address] [place] [address] Dr. Karla Lagos MCV (RBC) [Entitic vol] 91.9 fL Normal 80.0-94.0 [facility] Comment on above: Performed By: #### P HOS, URIC, MG, CMP, DBIL, LIPID #### [facility] [address] [place] [address] Dr. Karla Lagos MONO # 0.7 103/ul Normal 0.3-0.8 [facility] Comment on above: Performed By: #### P HOS, URIC, MG, CMP, DBIL, LIPID #### [facility] [address] [place] [address] Dr. Karla Lagos Monocytes/100 WBC (Bld) 9.7 % Normal 1.7-12.0 [facility] Comment on above: Performed By: #### P HOS, URIC, MG, CMP, DBIL, LIPID #### [facility] [address] [place] [address] Dr. Karla Lagos NEUT # 5.2 103/ul Normal 1.4-6.5 [facility] Comment on above: Performed By: #### P HOS, URIC, MG, CMP, DBIL, LIPID #### [facility] [address] [place] [address] Dr. Karla Lagos Neutrophils/100 WBC (Bld) 73.6 % Normal 43.0-75.0 [facility] Comment on above: Performed By: #### P HOS, URIC, MG, CMP, DBIL, LIPID #### [facility] [address] [place] [address] Dr. Karla Lagos Platelet mean volume (Bld) [Entitic vol] 10.2 fL Normal 9.5-13.5 [facility] Comment on above: Performed By: #### P HOS, URIC, MG, CMP, DBIL, LIPID #### [facility] [address] [place] [address] Dr. Karla Lagos PLT 218 103/ul Normal 150-450 [facility] Comment on above: Performed By: #### P HOS, URIC, MG, CMP, DBIL, LIPID #### [facility] [address] [address] [address] Karla Lagos RBC 5.34 106/ul Normal 4.70-6.10 [facility] Comment on above: Performed By: #### P HOS, URIC, MG, CMP, DBIL, LIPID #### [facility] [address] [address] [address] Karla Lagos WBC 7.1 103/ul Normal 4.0-11.0 [facility] Comment on above: Performed By: #### P HOS, URIC, MG, CMP, DBIL, LIPID #### [facility] [address] [place] [address] Dr. Karla Lagos LIPID PROFILEon 05-03-2022 CHOL-HDL RATIO NORM SEE BELOW Normal [facility] Comment on above: Result Comment: 3.3 - 4.4 LOW RISK 4.4 - 7.1 AVERAGE RISK 7.1 - 11.0 MODERATE RISK >11.0 HIGH RISK Performed By: #### M G, CMP, URIC, DBIL, LIPID, PHOS #### [facility] [address] [place] [address] Dr. Kalra Lagos Cholesterol [Mass/Vol] 121 mg/dL Normal <=200 [facility] Comment on above: Performed By: #### M G, CMP, URIC, DBIL, LIPID, PHOS #### [facility] [address] [place] [address] Dr. Karla Lagos Cholesterol in HDL [Mass/Vol] 44 mg/dL Normal 40-60 [facility] Comment on above: Performed By: #### M G, CMP, URIC, DBIL, LIPID, PHOS #### [facility] [address] [place] [address] Dr. Karla Lagos Cholesterol in LDL [Mass/Vol] 40.0 mg/dL Normal [facility] Comment on above: Performed By: #### M G, CMP, URIC, DBIL, LIPID, PHOS #### [facility] [address] [address] [address] Karla Lagos Cholesterol.total/Ch olesterol in HDL [Mass ratio] 2.8 {ratio} Normal [facility] Comment on above: Performed By: #### M G, CMP, URIC, DBIL, LIPID, PHOS #### [facility] [address] [address] [address] Karla Lagos HDL NORMAL > or = 60 mg/dl - LO W CARDIOVASCULAR RISK <40 mg/dl - HIGH CARDIOVASCULAR RISK Normal [facility] Comment on above: Performed By: #### M G, CMP, URIC, DBIL, LIPID, PHOS #### [facility] [address] [address] [address] Karla Lagos LDL CALC NORMAL SEE BELOW Normal [facility] Comment on above: Result Comment: <100 mg/dl OPTIMAL 100 - 129 mg/dl NEAR OR ABOVE OPTIMAL 130 - 159 mg/dl BORDERLINE HIGH 160 - 189 mg/dl HIGH >190 mg/dl VERY HIGH Performed By: #### M G, CMP, URIC, DBIL, LIPID, PHOS #### [facility] [address] [address] [address] Karla Lagos Triglyceride [Mass/Vol] 185 mg/dL Critically high <=150 [facility] Comment on above: Performed By: #### M G, CMP, URIC, DBIL, LIPID, PHOS #### [facility] [address] [address] [address] Karla Lagos VLDL CALC 37.0 mg/dL Normal [facility] Comment on above: Performed By: #### M G, CMP, URIC, DBIL, LIPID, PHOS #### [facility] [address] [address] [address] Karla Lagos MAGNESIUMon 05-03-2022 Magnesium [Mass/Vol] 1.6 mg/dL Critically low 1.8-2.4 [facility] Comment on above: Performed By: #### P HOS, URIC, MG, CMP, DBIL, LIPID #### [facility] [address] [address] [address] Karla Lagos PHOSPHORUSon 05-03-2022 Phosphate [Mass/Vol] 3.6 mg/dL Normal 2.6-4.7 [facility] Comment on above: Performed By: #### P HOS, URIC, MG, CMP, DBIL, LIPID #### [facility] [address] [place] [address] Dr. Karla Lagos PROF 14(COMP METB)on 023 Albumin [Mass/Vol] 3.9 g/dL Normal 3.4-5.0 [facility] Comment on above: Performed By: #### M G, CMP, URIC, DBIL, LIPID, PHOS #### [facility] [address] [place] [address] Dr. Karla Lagos Albumin/Globulin [Mass ratio] 1.3 {ratio} Normal [facility] Comment on above: Performed By: #### M G, CMP, URIC, DBIL, LIPID, PHOS #### [facility] [address] [place] [address] Dr. Karla Lagos ALP [Catalytic activity/Vol] 80 U/L Normal 46-116 [facility] Comment on above: Performed By: #### M G, CMP, URIC, DBIL, LIPID, PHOS #### [facility] [address] [place] [address] Dr. Karla Lagos ALT [Catalytic activity/Vol] 41 U/L Normal 16-63 [facility] Comment on above: Performed By: #### M G, CMP, URIC, DBIL, LIPID, PHOS #### [facility] [address] [place] [address] Dr. Karla Lagos Anion gap [Moles/Vol] 11.9 mmol/L Normal [facility] Comment on above: Performed By: #### M G, CMP, URIC, DBIL, LIPID, PHOS #### [facility] [address] [place] [address] Dr. Karla Lagos AST [Catalytic activity/Vol] 24 U/L Normal 15-37 [facility] Comment on above: Performed By: #### M G, CMP, URIC, DBIL, LIPID, PHOS #### [facility] [address] [address] [address] Karla Lagos Bilirubin [Mass/Vol] 0.7 mg/dL Normal 0.2-1.0 [facility] Comment on above: Performed By: #### M G, CMP, URIC, DBIL, LIPID, PHOS #### [facility] [address] [address] [address] Karla Lagos Calcium [Mass/Vol] 9.2 mg/dL Normal 8.5-10.1 [facility] Comment on above: Performed By: #### M G, CMP, URIC, DBIL, LIPID, PHOS #### [facility] [address] [address] [address] Karla Lagos Chloride [Moles/Vol] 103 mmol/L Normal 98-107 [facility] Comment on above: Performed By: #### M G, CMP, URIC, DBIL, LIPID, PHOS #### [facility] [address] [place] [address] Dr. Karla Lagos CO2 [Moles/Vol] 28.1 mmol/L Normal 21.0-32.0 [facility] Comment on above: Performed By: #### M G, CMP, URIC, DBIL, LIPID, PHOS #### [facility] [address] [place] [address] Dr. Karla Lagos Creatinine [Mass/Vol] 1.19 mg/dL Normal 0.70-1.30 [facility] Comment on above: Performed By: #### M G, CMP, URIC, DBIL, LIPID, PHOS #### [facility] [address] [place] [address] Dr. Karla Lagos EGFR-AF IVORIAN >60 Normal >=60 [facility] Comment on above: Performed By: #### M G, CMP, URIC, DBIL, LIPID, PHOS #### [facility] [address] [place] [address] Dr. Karla Lagos EGFR-NON AF IVORIAN >60 Normal >=60 [facility] Comment on above: Performed By: #### M G, CMP, URIC, DBIL, LIPID, PHOS #### [facility] [address] [place] [address] Dr. Karla Lagos Globulin (S) [Mass/Vol] 2.9 g/dL Normal [facility] Comment on above: Performed By: #### M G, CMP, URIC, DBIL, LIPID, PHOS #### [facility] [address] [place] [address] Dr. Karla Lagos Glucose [Mass/Vol] 119 mg/dL Critically high 74-106 [facility] Comment on above: Performed By: #### M G, CMP, URIC, DBIL, LIPID, PHOS #### [facility] [address] [place] [address] Dr. Karla Lagos Potassium [Moles/Vol] 4.0 mmol/L Normal 3.5-5.1 [facility] Comment on above: Performed By: #### M G, CMP, URIC, DBIL, LIPID, PHOS #### [facility] [address] [place] [address] Dr. Karla Lagos Protein [Mass/Vol] 6.8 g/dL Normal 6.4-8.2 [facility] Comment on above: Performed By: #### M G, CMP, URIC, DBIL, LIPID, PHOS #### [facility] [address] [place] [address] Dr. Karla Lagos Sodium [Moles/Vol] 139 mmol/L Normal 136-145 [facility] Comment on above: Performed By: #### M G, CMP, URIC, DBIL, LIPID, PHOS #### [facility] [address] [place] [address] Dr. Karla Lagos Urea nitrogen [Mass/Vol] 20.0 mg/dL Critically high 7.0-18.0 [facility] Comment on above: Performed By: #### M G, CMP, URIC, DBIL, LIPID, PHOS #### [facility] [address] [place] [address] Dr. Karla Lagos Urea nitrogen/Creatinine [Mass ratio] 16.8 mg/mg Normal [facility] Comment on above: Performed By: #### M G, CMP, URIC, DBIL, LIPID, PHOS #### [facility] [address] [place] [address] Dr. Karla Lagos URIC ACID SERUMon 05-03-2022 Urate [Mass/Vol] 5.5 mg/dL Normal 3.5-7.2 [facility] Comment on above: Performed By: #### M G, CMP, URIC, DBIL, LIPID, PHOS #### [facility] [address] [place] [address] Dr. Karla Lagos FK506 (TACROLIMUS) WHOLE BLO ODon 04-17-2022 Tacrolimus (FK506), Blood 6.1 ng/mL Normal 2.0-20.0 [facility] Comment on above: Result Comment: Trou gh (immediately following transplant) 15.0 . Trough (steady state, 2 weeks or more after transplant): 3.0 - 8.0 . Performed by LC-MS/MS technology. Performed By: #### P HOS, URIC, MG, CMP, DBIL, LIPID #### [facility] [address] [place] [address] Dr. Karla Lagos FK506 (TACROLIMUS) WHOLE BLO ODon 03-28-2022 Tacrolimus (FK506), Blood 8.8 ng/mL Normal 2.0-20.0 [facility] Comment on above: Result Comment: Trou gh (immediately following transplant) 15.0 . Trough (steady state, 2 weeks or more after transplant): 3.0 - 8.0 . Performed by LC-MS/MS technology. Performed By: #### P HOS, URIC, MG, CMP, DBIL, LIPID #### [facility] [address] [place] [address] Dr. Karla Lagos BILIRUBIN CONJUGATED (DIRECT )on 03-25-2022 BILI, CONJUGATED 0.2 mg/dL Normal 0.0-0.2 [facility] Comment on above: Performed By: #### P HOS, URIC, MG, CMP, DBIL, LIPID #### [facility] [address] [place] [address] Dr. Karla Lagos CBC AUTO DIFFon 03-25-2022 BASO # 0.1 103/ul Normal 0.0-0.1 [facility] Comment on above: Performed By: #### P HOS, URIC, MG, CMP, DBIL, LIPID #### [facility] [address] [place] [address] Dr. Karla Lagos Basophils/100 WBC (Bld) 0.7 % Normal 0.2-2.0 [facility] Comment on above: Performed By: #### P HOS, URIC, MG, CMP, DBIL, LIPID #### [facility] [address] [place] [address] Dr. Karla Lagos EO # 0.1 103/ul Normal 0.0-0.7 [facility] Comment on above: Performed By: #### P HOS, URIC, MG, CMP, DBIL, LIPID #### [facility] [address] [place] [address] Dr. Karla Lagos Eosinophils/100 WBC (Bld) 1.4 % Normal 0.9-7.0 [facility] Comment on above: Performed By: #### P HOS, URIC, MG, CMP, DBIL, LIPID #### [facility] [address] [place] [address] Dr. Karla Lagos Erythrocyte distribution width (RBC) [Ratio] 13.6 % Normal 11.0-15.0 [facility] Comment on above: Performed By: #### P HOS, URIC, MG, CMP, DBIL, LIPID #### [facility] [address] [place] [address] Dr. Karla Lagos Hematocrit (Bld) [Volume fraction] 51.5 % Normal 42.0-54.0 [facility] Comment on above: Performed By: #### P HOS, URIC, MG, CMP, DBIL, LIPID #### [facility] [address] [place] [address] Dr. Karla Lagos Hemoglobin (Bld) [Mass/Vol] 16.8 g/dL Normal 14.0-18.0 [facility] Comment on above: Performed By: #### P HOS, URIC, MG, CMP, DBIL, LIPID #### [facility] [address] [place] [address] Dr. Karla Lagos IG # 0.06 10e3/ul Critically high 0.00-0.03 [facility] Comment on above: Performed By: #### P HOS, URIC, MG, CMP, DBIL, LIPID #### [facility] [address] [address] [address] Karla Lagos IG % 0.8 % Critically high 0.0-0.5 [facility] Comment on above: Performed By: #### P HOS, URIC, MG, CMP, DBIL, LIPID #### [facility] [address] [address] [address] Karla Lagos LYMPH # 1.1 103/ul Critically low 1.2-3.8 [facility] Comment on above: Performed By: #### P HOS, URIC, MG, CMP, DBIL, LIPID #### [facility] [address] [place] [address] Dr. Karla Lagos Lymphocytes/100 WBC (Bld) 14.8 % Critically low 20.5-60.0 [facility] Comment on above: Performed By: #### P HOS, URIC, MG, CMP, DBIL, LIPID #### [facility] [address] [place] [address] Dr. Karla Lagos MANUAL DIFF REQ NO Normal [facility] Comment on above: Performed By: #### P HOS, URIC, MG, CMP, DBIL, LIPID #### [facility] [address] [place] [address] Dr. Karla Lagos MCH (RBC) [Entitic mass] 30.2 pg Normal 25.9-34.0 [facility] Comment on above: Performed By: #### P HOS, URIC, MG, CMP, DBIL, LIPID #### [facility] [address] [address] [address] Karla Lagos MCHC (RBC) [Mass/Vol] 32.6 g/dL Normal 29.9-35.2 [facility] Comment on above: Performed By: #### P HOS, URIC, MG, CMP, DBIL, LIPID #### [facility] [address] [place] [address] Dr. Karla Lagos MCV (RBC) [Entitic vol] 92.6 fL Normal 80.0-94.0 [facility] Comment on above: Performed By: #### P HOS, URIC, MG, CMP, DBIL, LIPID #### [facility] [address] [place] [address] Dr. Karla Lagos MONO # 0.7 103/ul Normal 0.3-0.8 [facility] Comment on above: Performed By: #### P HOS, URIC, MG, CMP, DBIL, LIPID #### [facility] [address] [place] [address] Dr. Karla Lagos Monocytes/100 WBC (Bld) 10.0 % Normal 1.7-12.0 [facility] Comment on above: Performed By: #### P HOS, URIC, MG, CMP, DBIL, LIPID #### [facility] [address] [place] [address] Dr. Karla Lagos NEUT # 5.2 103/ul Normal 1.4-6.5 [facility] Comment on above: Performed By: #### P HOS, URIC, MG, CMP, DBIL, LIPID #### [facility] [address] [place] [address] Dr. Karla Lagos Neutrophils/100 WBC (Bld) 72.3 % Normal 43.0-75.0 [facility] Comment on above: Performed By: #### P HOS, URIC, MG, CMP, DBIL, LIPID #### [facility] [address] [place] [address] Dr. Karla Lagos Platelet mean volume (Bld) [Entitic vol] 10.4 fL Normal 9.5-13.5 [facility] Comment on above: Performed By: #### P HOS, URIC, MG, CMP, DBIL, LIPID #### [facility] [address] [place] [address] Dr. Karla Lagos PLT 245 103/ul Normal 150-450 [facility] Comment on above: Performed By: #### P HOS, URIC, MG, CMP, DBIL, LIPID #### [facility] [address] [place] [address] Dr. Karla Lagos RBC 5.56 106/ul Normal 4.70-6.10 [facility] Comment on above: Performed By: #### P HOS, URIC, MG, CMP, DBIL, LIPID #### [facility] [address] [address] [address] Karla Lagos WBC 7.2 103/ul Normal 4.0-11.0 [facility] Comment on above: Performed By: #### P HOS, URIC, MG, CMP, DBIL, LIPID #### [facility] [address] [place] [address] Dr. Karla Lagos LIPID PROFILEon 03-25-2022 CHOL-HDL RATIO NORM SEE BELOW Normal [facility] Comment on above: Result Comment: 3.3 - 4.4 LOW RISK 4.4 - 7.1 AVERAGE RISK 7.1 - 11.0 MODERATE RISK >11.0 HIGH RISK Performed By: #### P HOS, URIC, MG, CMP, DBIL, LIPID #### [facility] [address] [place] [address] Dr. Karla Lagos Cholesterol [Mass/Vol] 124 mg/dL Normal <=200 [facility] Comment on above: Performed By: #### P HOS, URIC, MG, CMP, DBIL, LIPID #### [facility] [address] [place] [address] Dr. Karla Lagos Cholesterol in HDL [Mass/Vol] 47 mg/dL Normal 40-60 [facility] Comment on above: Performed By: #### P HOS, URIC, MG, CMP, DBIL, LIPID #### [facility] [address] [place] [address] Dr. Karla Lagos Cholesterol in LDL [Mass/Vol] 47.4 mg/dL Normal [facility] Comment on above: Performed By: #### P HOS, URIC, MG, CMP, DBIL, LIPID #### [facility] [address] [place] [address] Dr. Karla Lagos Cholesterol.total/Ch olesterol in HDL [Mass ratio] 2.6 {ratio} Normal [facility] Comment on above: Performed By: #### P HOS, URIC, MG, CMP, DBIL, LIPID #### [facility] [address] [address] [address] Karla Lagos HDL NORMAL > or = 60 mg/dl - LO W CARDIOVASCULAR RISK <40 mg/dl - HIGH CARDIOVASCULAR RISK Normal [facility] Comment on above: Performed By: #### P HOS, URIC, MG, CMP, DBIL, LIPID #### [facility] [address] [address] [address] Karla Lagos LDL CALC NORMAL SEE BELOW Normal [facility] Comment on above: Result Comment: <100 mg/dl OPTIMAL 100 - 129 mg/dl NEAR OR ABOVE OPTIMAL 130 - 159 mg/dl BORDERLINE HIGH 160 - 189 mg/dl HIGH >190 mg/dl VERY HIGH Performed By: #### P HOS, URIC, MG, CMP, DBIL, LIPID #### [facility] [address] [address] [address] Karla Lagos Triglyceride [Mass/Vol] 148 mg/dL Normal <=150 [facility] Comment on above: Performed By: #### P HOS, URIC, MG, CMP, DBIL, LIPID #### [facility] [address] [address] [address] Karla Lagos VLDL CALC 29.6 mg/dL Normal [facility] Comment on above: Performed By: #### P HOS, URIC, MG, CMP, DBIL, LIPID #### [facility] [address] [address] [address] Karla Lagos MAGNESIUMon 03-25-2022 Magnesium [Mass/Vol] 1.5 mg/dL Critically low 1.8-2.4 [facility] Comment on above: Performed By: #### P HOS, URIC, MG, CMP, DBIL, LIPID #### [facility] [address] [address] [address] Karla Lagos PHOSPHORUSon 03-25-2022 Phosphate [Mass/Vol] 3.8 mg/dL Normal 2.6-4.7 [facility] Comment on above: Performed By: #### P HOS, URIC, MG, CMP, DBIL, LIPID #### [facility] [address] [address] [address] Karla Lagos PROF 14(COMP METB)on 022 Albumin [Mass/Vol] 4.1 g/dL Normal 3.4-5.0 [facility] Comment on above: Performed By: #### P HOS, URIC, MG, CMP, DBIL, LIPID #### [facility] [address] [place] [address] Dr. Karla Lagos Albumin/Globulin [Mass ratio] 1.3 {ratio} Normal [facility] Comment on above: Performed By: #### P HOS, URIC, MG, CMP, DBIL, LIPID #### [facility] [address] [place] [address] Dr. Karla Lagos ALP [Catalytic activity/Vol] 76 U/L Normal 46-116 [facility] Comment on above: Performed By: #### P HOS, URIC, MG, CMP, DBIL, LIPID #### [facility] [address] [place] [address] Dr. Karla Lagos ALT [Catalytic activity/Vol] 36 U/L Normal 16-63 [facility] Comment on above: Performed By: #### P HOS, URIC, MG, CMP, DBIL, LIPID #### [facility] [address] [place] [address] Dr. Karla Lagos Anion gap [Moles/Vol] 12.4 mmol/L Normal [facility] Comment on above: Performed By: #### P HOS, URIC, MG, CMP, DBIL, LIPID #### [facility] [address] [place] [address] Dr. Karla Lagos AST [Catalytic activity/Vol] 21 U/L Normal 15-37 [facility] Comment on above: Performed By: #### P HOS, URIC, MG, CMP, DBIL, LIPID #### [facility] [address] [place] [address] Dr. Karla Lagos Bilirubin [Mass/Vol] 0.6 mg/dL Normal 0.2-1.0 [facility] Comment on above: Performed By: #### P HOS, URIC, MG, CMP, DBIL, LIPID #### [facility] [address] [address] [address] Karla Lagos Calcium [Mass/Vol] 9.4 mg/dL Normal 8.5-10.1 [facility] Comment on above: Performed By: #### P HOS, URIC, MG, CMP, DBIL, LIPID #### [facility] [address] [place] [address] Dr. Karla Lagos Chloride [Moles/Vol] 103 mmol/L Normal 98-107 [facility] Comment on above: Performed By: #### P HOS, URIC, MG, CMP, DBIL, LIPID #### [facility] [address] [place] [address] Dr. Kalra Lagos CO2 [Moles/Vol] 30.6 mmol/L Normal 21.0-32.0 [facility] Comment on above: Performed By: #### P HOS, URIC, MG, CMP, DBIL, LIPID #### [facility] [address] [place] [address] Dr. Karla Lagos Creatinine [Mass/Vol] 1.34 mg/dL Critically high 0.70-1.30 [facility] Comment on above: Performed By: #### P HOS, URIC, MG, CMP, DBIL, LIPID #### [facility] [address] [place] [address] Dr. Karla Lagos EGFR-AF IVORIAN >60 Normal >=60 [facility] Comment on above: Performed By: #### P HOS, URIC, MG, CMP, DBIL, LIPID #### [facility] [address] [place] [address] Dr. Karla Lagos EGFR-NON AF IVORIAN 54 mL/min/1.73m2 Critically low >=60 [facility] Comment on above: Performed By: #### P HOS, URIC, MG, CMP, DBIL, LIPID #### [facility] [address] [place] [address] Dr. Karla Lagos Globulin (S) [Mass/Vol] 3.2 g/dL Normal [facility] Comment on above: Performed By: #### P HOS, URIC, MG, CMP, DBIL, LIPID #### [facility] [address] [address] [address] Karla Lagos Glucose [Mass/Vol] 125 mg/dL Critically high 74-106 [facility] Comment on above: Performed By: #### P HOS, URIC, MG, CMP, DBIL, LIPID #### [facility] [address] [place] [address] Dr. Karla Lagos Potassium [Moles/Vol] 5.0 mmol/L Normal 3.5-5.1 [facility] Comment on above: Performed By: #### P HOS, URIC, MG, CMP, DBIL, LIPID #### [facility] [address] [place] [address] Dr. Karla Lagos Protein [Mass/Vol] 7.3 g/dL Normal 6.4-8.2 [facility] Comment on above: Performed By: #### P HOS, URIC, MG, CMP, DBIL, LIPID #### [facility] [address] [place] [address] Dr. Karla Lagos Sodium [Moles/Vol] 141 mmol/L Normal 136-145 [facility] Comment on above: Performed By: #### P HOS, URIC, MG, CMP, DBIL, LIPID #### [facility] [address] [place] [address] Dr. Karla Lagos Urea nitrogen [Mass/Vol] 24.0 mg/dL Critically high 7.0-18.0 [facility] Comment on above: Performed By: #### P HOS, URIC, MG, CMP, DBIL, LIPID #### [facility] [address] [place] [address] Dr. Karla Lagos Urea nitrogen/Creatinine [Mass ratio] 17.9 mg/mg Normal [facility] Comment on above: Performed By: #### P HOS, URIC, MG, CMP, DBIL, LIPID #### [facility] [address] [place] [address] Dr. Karla Lagos URIC ACID SERUMon 03-25-2022 Urate [Mass/Vol] 5.0 mg/dL Normal 3.5-7.2 [facility] Comment on above: Performed By: #### P HOS, URIC, MG, CMP, DBIL, LIPID #### [facility] [address] [address] [address] Karla Lagos FK506 (TACROLIMUS) WHOLE BLO ODon 02-27-2022 Tacrolimus (FK506), Blood 8.0 ng/mL Normal 2.0-20.0 [facility] Comment on above: Result Comment: Trou gh (immediately following transplant) 15.0 . Trough (steady state, 2 weeks or more after transplant): 3.0 - 8.0 . Performed by LC-MS/MS technology. Performed By: #### P HOS, URIC, MG, CMP, DBIL, LIPID #### [facility] [address] [place] [address] Dr. Karla Lagos BK VIRUS PCR QUANTon 022 BKV DNA QUANT PCR PLASMA Negative Normal Negative [facility] Comment on above: Result Comment: No B K DNA detected. . The linear range of the assay is 22 - 100,000,000 IU/mL. Performed By: #### P HOS, URIC, MG, CMP, DBIL, LIPID #### [facility] [address] [place] [address] Dr. Karla Lagos Log10 BKV DNA Plasma Normal [facility] Comment on above: Performed By: #### P HOS, URIC, MG, CMP, DBIL, LIPID #### [facility] [address] [place] [address] Dr. Karla Lagos BILIRUBIN CONJUGATED (DIRECT )on 02-24-2022 BILI, CONJUGATED 0.2 mg/dL Normal 0.0-0.2 [facility] Comment on above: Performed By: #### P HOS, URIC, MG, CMP, DBIL, LIPID #### [facility] [address] [place] [address] Dr. Karla Lagos CBC AUTO DIFFon 02-24-2022 BASO # 0.1 103/ul Normal 0.0-0.1 [facility] Comment on above: Performed By: #### P HOS, URIC, MG, CMP, DBIL, LIPID #### [facility] [address] [place] [address] Dr. Karla Lagos Basophils/100 WBC (Bld) 0.8 % Normal 0.2-2.0 [facility] Comment on above: Performed By: #### P HOS, URIC, MG, CMP, DBIL, LIPID #### [facility] [address] [place] [address] Dr. Karla Lagos EO # 0.1 103/ul Normal 0.0-0.7 [facility] Comment on above: Performed By: #### P HOS, URIC, MG, CMP, DBIL, LIPID #### [facility] [address] [place] [address] Dr. Karla Lagos Eosinophils/100 WBC (Bld) 1.7 % Normal 0.9-7.0 [facility] Comment on above: Performed By: #### P HOS, URIC, MG, CMP, DBIL, LIPID #### [facility] [address] [place] [address] Dr. Karla Lagos Erythrocyte distribution width (RBC) [Ratio] 14.1 % Normal 11.0-15.0 [facility] Comment on above: Performed By: #### P HOS, URIC, MG, CMP, DBIL, LIPID #### [facility] [address] [place] [address] Dr. Karla Lagos Hematocrit (Bld) [Volume fraction] 48.1 % Normal 42.0-54.0 [facility] Comment on above: Performed By: #### P HOS, URIC, MG, CMP, DBIL, LIPID #### [facility] [address] [place] [address] Dr. Karla Lagos Hemoglobin (Bld) [Mass/Vol] 16.0 g/dL Normal 14.0-18.0 [facility] Comment on above: Performed By: #### P HOS, URIC, MG, CMP, DBIL, LIPID #### [facility] [address] [place] [address] Dr. Karla Lagos IG # 0.03 10e3/ul Normal 0.00-0.03 [facility] Comment on above: Performed By: #### P HOS, URIC, MG, CMP, DBIL, LIPID #### [facility] [address] [place] [address] Dr. Karla Lagos IG % 0.5 % Normal 0.0-0.5 [facility] Comment on above: Performed By: #### P HOS, URIC, MG, CMP, DBIL, LIPID #### [facility] [address] [place] [address] Dr. Karla Lagos LYMPH # 1.0 103/ul Critically low 1.2-3.8 [facility] Comment on above: Performed By: #### P HOS, URIC, MG, CMP, DBIL, LIPID #### [facility] [address] [place] [address] Dr. Karla Lagos Lymphocytes/100 WBC (Bld) 16.9 % Critically low 20.5-60.0 [facility] Comment on above: Performed By: #### P HOS, URIC, MG, CMP, DBIL, LIPID #### [facility] [address] [place] [address] Dr. Karla Lagos MANUAL DIFF REQ NO Normal [facility] Comment on above: Performed By: #### P HOS, URIC, MG, CMP, DBIL, LIPID #### [facility] [address] [place] [address] Dr. Karla Lagos MCH (RBC) [Entitic mass] 31.1 pg Normal 25.9-34.0 [facility] Comment on above: Performed By: #### P HOS, URIC, MG, CMP, DBIL, LIPID #### [facility] [address] [place] [address] Dr. Karla Lagos MCHC (RBC) [Mass/Vol] 33.3 g/dL Normal 29.9-35.2 [facility] Comment on above: Performed By: #### P HOS, URIC, MG, CMP, DBIL, LIPID #### [facility] [address] [place] [address] Dr. Karla Lagos MCV (RBC) [Entitic vol] 93.6 fL Normal 80.0-94.0 [facility] Comment on above: Performed By: #### P HOS, URIC, MG, CMP, DBIL, LIPID #### [facility] [address] [place] [address] Dr. Karla Lagos MONO # 0.6 103/ul Normal 0.3-0.8 [facility] Comment on above: Performed By: #### P HOS, URIC, MG, CMP, DBIL, LIPID #### [facility] [address] [place] [address] Dr. Karla Lagos Monocytes/100 WBC (Bld) 10.1 % Normal 1.7-12.0 [facility] Comment on above: Performed By: #### P HOS, URIC, MG, CMP, DBIL, LIPID #### [facility] [address] [place] [address] Dr. Karla Lagos NEUT # 4.2 103/ul Normal 1.4-6.5 [facility] Comment on above: Performed By: #### P HOS, URIC, MG, CMP, DBIL, LIPID #### [facility] [address] [place] [address] Dr. Karla Lagos Neutrophils/100 WBC (Bld) 70.0 % Normal 43.0-75.0 [facility] Comment on above: Performed By: #### P HOS, URIC, MG, CMP, DBIL, LIPID #### [facility] [address] [place] [address] Dr. Karla Lagos Platelet mean volume (Bld) [Entitic vol] 10.2 fL Normal 9.5-13.5 [facility] Comment on above: Performed By: #### P HOS, URIC, MG, CMP, DBIL, LIPID #### [facility] [address] [place] [address] Dr. Karla Lagos PLT 226 103/ul Normal 150-450 [facility] Comment on above: Performed By: #### P HOS, URIC, MG, CMP, DBIL, LIPID #### [facility] [address] [place] [address] Dr. Karla Lagos RBC 5.14 106/ul Normal 4.70-6.10 [facility] Comment on above: Performed By: #### P HOS, URIC, MG, CMP, DBIL, LIPID #### [facility] [address] [place], [place] [id number] Dr. Karla Lagos WBC 6.0 103/ul Normal 4.0-11.0 [facility] Comment on above: Performed By: #### P HOS, URIC, MG, CMP, DBIL, LIPID #### [facility] [address] [place] [address] Dr. Karla Lagos LIPID PROFILEon 02-24-2022 CHOL-HDL RATIO NORM SEE BELOW Normal [facility] Comment on above: Result Comment: 3.3 - 4.4 LOW RISK 4.4 - 7.1 AVERAGE RISK 7.1 - 11.0 MODERATE RISK >11.0 HIGH RISK Performed By: #### P HOS, URIC, MG, CMP, DBIL, LIPID #### [facility] [address] [address] [address] Karla Lagos Cholesterol [Mass/Vol] 132 mg/dL Normal <=200 [facility] Comment on above: Performed By: #### P HOS, URIC, MG, CMP, DBIL, LIPID #### [facility] [address] [address] [address] Karla Lagos Cholesterol in HDL [Mass/Vol] 50 mg/dL Normal 40-60 [facility] Comment on above: Performed By: #### P HOS, URIC, MG, CMP, DBIL, LIPID #### [facility] [address] [place] [address] Dr. Karla Lagos Cholesterol in LDL [Mass/Vol] 54.6 mg/dL Normal [facility] Comment on above: Performed By: #### P HOS, URIC, MG, CMP, DBIL, LIPID #### [facility] [address] [address] [address] Karla Lagos Cholesterol.total/Ch olesterol in HDL [Mass ratio] 2.6 {ratio} Normal [facility] Comment on above: Performed By: #### P HOS, URIC, MG, CMP, DBIL, LIPID #### [facility] [address] [place] [address] Dr. Karla Lagos HDL NORMAL > or = 60 mg/dl - LO W CARDIOVASCULAR RISK <40 mg/dl - HIGH CARDIOVASCULAR RISK Normal [facility] Comment on above: Performed By: #### P HOS, URIC, MG, CMP, DBIL, LIPID #### [facility] [address] [address] [address] Karla Lagos LDL CALC NORMAL SEE BELOW Normal [facility] Comment on above: Result Comment: <100 mg/dl OPTIMAL 100 - 129 mg/dl NEAR OR ABOVE OPTIMAL 130 - 159 mg/dl BORDERLINE HIGH 160 - 189 mg/dl HIGH >190 mg/dl VERY HIGH Performed By: #### P HOS, URIC, MG, CMP, DBIL, LIPID #### [facility] [address] [address] [address] Karla Lagos Triglyceride [Mass/Vol] 137 mg/dL Normal <=150 [facility] Comment on above: Performed By: #### P HOS, URIC, MG, CMP, DBIL, LIPID #### [facility] [address] [place] [address] Dr. Karla Lagos VLDL CALC 27.4 mg/dL Normal [facility] Comment on above: Performed By: #### P HOS, URIC, MG, CMP, DBIL, LIPID #### [facility] [address] [place] [address] Dr. Karla Lagos MAGNESIUMon 02-24-2022 Magnesium [Mass/Vol] 1.5 mg/dL Critically low 1.8-2.4 [facility] Comment on above: Performed By: #### P HOS, URIC, MG, CMP, DBIL, LIPID #### [facility] [address] [place] [address] Dr. Karla Lagos PHOSPHORUSon 02-24-2022 Phosphate [Mass/Vol] 3.2 mg/dL Normal 2.6-4.7 [facility] Comment on above: Performed By: #### P HOS, URIC, MG, CMP, DBIL, LIPID #### [facility] [address] [place] [address] Dr. Karla Lagos PROF 14(COMP METB)on 022 Albumin [Mass/Vol] 4.1 g/dL Normal 3.4-5.0 [facility] Comment on above: Performed By: #### P HOS, URIC, MG, CMP, DBIL, LIPID #### [facility] [address] [place] [address] Dr. Karla Lagos Albumin/Globulin [Mass ratio] 1.4 {ratio} Normal [facility] Comment on above: Performed By: #### P HOS, URIC, MG, CMP, DBIL, LIPID #### [facility] [address] [place] [address] Dr. Karla Lagos ALP [Catalytic activity/Vol] 73 U/L Normal 46-116 [facility] Comment on above: Performed By: #### P HOS, URIC, MG, CMP, DBIL, LIPID #### [facility] [address] [place] [address] Dr. Karla Lagos ALT [Catalytic activity/Vol] 27 U/L Normal 16-63 [facility] Comment on above: Performed By: #### P HOS, URIC, MG, CMP, DBIL, LIPID #### [facility] [address] [place] [address] Dr. Karla Lagos Anion gap [Moles/Vol] 11.7 mmol/L Normal [facility] Comment on above: Performed By: #### P HOS, URIC, MG, CMP, DBIL, LIPID #### [facility] [address] [place] [address] Dr. Karla Lagos AST [Catalytic activity/Vol] 16 U/L Normal 15-37 [facility] Comment on above: Performed By: #### P HOS, URIC, MG, CMP, DBIL, LIPID #### [facility] [address] [place] [address] Dr. Karla Lagos Bilirubin [Mass/Vol] 0.8 mg/dL Normal 0.2-1.0 [facility] Comment on above: Performed By: #### P HOS, URIC, MG, CMP, DBIL, LIPID #### [facility] [address] [place] [address] Dr. Karla Lagos Calcium [Mass/Vol] 9.1 mg/dL Normal 8.5-10.1 [facility] Comment on above: Performed By: #### P HOS, URIC, MG, CMP, DBIL, LIPID #### [facility] [address] [place] [address] Dr. Karla Lagos Chloride [Moles/Vol] 104 mmol/L Normal 98-107 [facility] Comment on above: Performed By: #### P HOS, URIC, MG, CMP, DBIL, LIPID #### [facility] [address] [place] [address] Dr. Karla Lagos CO2 [Moles/Vol] 29.4 mmol/L Normal 21.0-32.0 [facility] Comment on above: Performed By: #### P HOS, URIC, MG, CMP, DBIL, LIPID #### [facility] [address] [place] [address] Dr. Karla Lagos Creatinine [Mass/Vol] 1.27 mg/dL Normal 0.70-1.30 [facility] Comment on above: Performed By: #### P HOS, URIC, MG, CMP, DBIL, LIPID #### [facility] [address] [place] [address] Dr. Karla Lagos EGFR-AF IVORIAN >60 Normal >=60 [facility] Comment on above: Performed By: #### P HOS, URIC, MG, CMP, DBIL, LIPID #### [facility] [address] [place] [address] Dr. Karla Lagos EGFR-NON AF IVORIAN 58 mL/min/1.73m2 Critically low >=60 [facility] Comment on above: Performed By: #### P HOS, URIC, MG, CMP, DBIL, LIPID #### [facility] [address] [place] [address] Dr. Karla Lagos Globulin (S) [Mass/Vol] 2.9 g/dL Normal [facility] Comment on above: Performed By: #### P HOS, URIC, MG, CMP, DBIL, LIPID #### [facility] [address] [place] [address] Dr. Karla Lagos Glucose [Mass/Vol] 113 mg/dL Critically high 74-106 T [facility] Comment on above: Performed By: #### P HOS, URIC, MG, CMP, DBIL, LIPID #### [facility] [address] [address] [address] Karla Lagos Potassium [Moles/Vol] 4.1 mmol/L Normal 3.5-5.1 [facility] Comment on above: Performed By: #### P HOS, URIC, MG, CMP, DBIL, LIPID #### [facility] [address] [place] [address] Dr. Karla Lagos Protein [Mass/Vol] 7.0 g/dL Normal 6.4-8.2 [facility] Comment on above: Performed By: #### P HOS, URIC, MG, CMP, DBIL, LIPID #### [facility] [address] [address] [address] Karla Lagos Sodium [Moles/Vol] 141 mmol/L Normal 136-145 [facility] Comment on above: Performed By: #### P HOS, URIC, MG, CMP, DBIL, LIPID #### [facility] [address] [place] [address] Dr. Karla Lagos Urea nitrogen [Mass/Vol] 18.0 mg/dL Normal 7.0-18.0 [facility] Comment on above: Performed By: #### P HOS, URIC, MG, CMP, DBIL, LIPID #### [facility] [address] [place] [address] Dr. Karla Lagos Urea nitrogen/Creatinine [Mass ratio] 14.2 mg/mg Normal [facility] Comment on above: Performed By: #### P HOS, URIC, MG, CMP, DBIL, LIPID #### [facility] [address] [place] [address] Dr. Karla Lagos URIC ACID SERUMon 02-24-2022 Urate [Mass/Vol] 6.0 mg/dL Normal 3.5-7.2 [facility] Comment on above: Performed By: #### P HOS, URIC, MG, CMP, DBIL, LIPID #### [facility] [address] [place] [address] Dr. Karla Lagos XR Chest 2 Views*on 01-14-20 22 XR Chest 2 Views* FINDINGS: Comparison made with prior examination of September 24, 2020. Improved aeration with no persistent parenchymal consolidation. No pleural or pericardial effusions. Normal cardiac silhouette size. Sternotomy wires. Left central cardiac pacemaker. IMPRESSION: 1. Minimal residual post-inflammatory sequela. Report reported and signed by Anjum Remy on 01/13/2022 1143 Normal [facility] ECHOCARDIO M/2D COMPLETEon 0 09-28-2021 ECHOCARDIO M/2D COMPLETE Patient: VISHAL DUKE Exam Date: 09/28/2021 : 1960 Gender:M Ordering : DR FEDERICO CHESTER M.D. Admission #: [id number] Family : DR ROSA M GONZALES M.D. Order #: [id number] CLICK HERE TO VIEW EXAM ECHOCARDIOGRAM REPORT [...] Area(A4C): 20.50 cm2 Left Atrium Systolic Volume(A2C): 94751 mm3 Left Atrium Systolic Volume(A4C): 94565 mm3 Mitral Valve MV E to A [...] Frazier M.D. on 09/28/2021 at 19:38 Normal [facility] Bilirubin, Directon 09-28-19 22 DBIL <0.2 Normal [facility] Comment on above: Result Comment: Refe rence range change 03/03/2017. Prior reference range 0.1-0.3 mg/dL. Performed By: #### C BCAD, MG, URIC, LIPD, PHOS, CMP, DBIL #### [facility] [address] [place], [place] [id number] Complete Blood Count with Au to Diffon 09-27-2021 Basophils (Bld) [#/Vol] 0.06 10*3/uL Normal 0.00-0.20 [facility] Comment on above: Performed By: #### C BCAD, MG, URIC, LIPD, PHOS, CMP, DBIL #### [facility] [address], [place] [id number] Basophils/100 WBC (Bld) 1.0 % Normal [facility] Comment on above: Performed By: #### C BCAD, MG, URIC, LIPD, PHOS, CMP, DBIL #### [facility] [address], [place] [id number] Eosinophils (Bld) [#/Vol] 0.09 10*3/uL Normal 0.02-0.50 [facility] Comment on above: Performed By: #### C BCAD, MG, URIC, LIPD, PHOS, CMP, DBIL #### [facility] [address], [place] [id number] Eosinophils/100 WBC (Bld) 1.5 % Normal [facility] Comment on above: Performed By: #### C BCAD, MG, URIC, LIPD, PHOS, CMP, DBIL #### [facility] [address], [place] [id number] Erythrocyte distribution width (RBC) [Ratio] 14.1 % Normal 11.0-15.0 [facility] Comment on above: Performed By: #### C BCAD, MG, URIC, LIPD, PHOS, CMP, DBIL #### [facility] [address], [place] [id number] Hematocrit (Bld) [Volume fraction] 51.6 % High 38.5-50.0 [facility] Comment on above: Performed By: #### C BCAD, MG, URIC, LIPD, PHOS, CMP, DBIL #### [facility] [address], [place] [id number] Hemoglobin (Bld) [Mass/Vol] 16.5 g/dL Normal 13.0-17.1 [facility] Comment on above: Performed By: #### C BCAD, MG, URIC, LIPD, PHOS, CMP, DBIL #### [facility] [address], [place] [id number] Lymphocytes (Bld) [#/Vol] 1.0 10*3/uL Normal 0.9-3.9 [facility] Comment on above: Performed By: #### C BCAD, MG, URIC, LIPD, PHOS, CMP, DBIL #### [facility] [address], [place] [id number] Lymphocytes/100 WBC (Bld) 16.3 % Normal [facility] Comment on above: Performed By: #### C BCAD, MG, URIC, LIPD, PHOS, CMP, DBIL #### [facility] [address], [place] [id number] MCH (RBC) [Entitic mass] 29.9 pg Normal 27.0-33.0 [facility] Comment on above: Performed By: #### C BCAD, MG, URIC, LIPD, PHOS, CMP, DBIL #### [facility] [address], [place] [id number] MCHC (RBC) [Mass/Vol] 32.0 g/dL Normal 32.0-36.0 [facility] Comment on above: Performed By: #### C BCAD, MG, URIC, LIPD, PHOS, CMP, DBIL #### [facility] [address], [place] [id number] MCV (RBC) [Entitic vol] 94 fL Normal 80-100 [facility] Comment on above: Performed By: #### C BCAD, MG, URIC, LIPD, PHOS, CMP, DBIL #### [facility] [address], [place] [id number] Monocytes (Bld) [#/Vol] 0.7 10*3/uL Normal 0.2-0.9 [facility] Comment on above: Performed By: #### C BCAD, MG, URIC, LIPD, PHOS, CMP, DBIL #### [facility] [address], [place] [id number] Monocytes/100 WBC (Bld) 11.1 % Normal [facility] Comment on above: Performed By: #### C BCAD, MG, URIC, LIPD, PHOS, CMP, DBIL #### [facility] [address], [place] [id number] Neutrophils (Bld) [#/Vol] 4.2 10*3/uL Normal 1.5-7.8 [facility] Comment on above: Performed By: #### C BCAD, MG, URIC, LIPD, PHOS, CMP, DBIL #### [facility] [address], [place] [id number] Neutrophils/100 WBC (Bld) 69.8 % Normal [facility] Comment on above: Performed By: #### C BCAD, MG, URIC, LIPD, PHOS, CMP, DBIL #### [facility] [address], [place] [id number] Platelet mean volume (Bld) [Entitic vol] 10.80 fL Normal 7.50-12.50 [facility] Comment on above: Performed By: #### C BCAD, MG, URIC, LIPD, PHOS, CMP, DBIL #### [facility] [address], [place] [id number] Platelets (Bld) [#/Vol] 247 10*3/uL Normal 140-400 [facility] Comment on above: Performed By: #### C BCAD, MG, URIC, LIPD, PHOS, CMP, DBIL #### [facility] [address], [place] [id number] RBC (Bld) [#/Vol] 5.52 10*6/uL Normal 4.20-5.80 [facility] Comment on above: Performed By: #### C BCAD, MG, URIC, LIPD, PHOS, CMP, DBIL #### [facility] [address], [place] [id number] RDW-SD 48.9 fL Normal 37.0-50.0 [facility] Comment on above: Performed By: #### C BCAD, MG, URIC, LIPD, PHOS, CMP, DBIL #### [facility] [address], [place] [id number] WBC (Bld) [#/Vol] 6.0 10*3/uL Normal 3.8-11.[address] [facility] Comment on above: Performed By: #### C BCAD, MG, URIC, LIPD, PHOS, CMP, DBIL #### [facility] [address], [place] [id number] Comprehensive Metabolic Pane nitin 09-27-2021 Albumin [Mass/Vol] 5.0 g/dL Normal 3.6-5.[address] [facility] Comment on above: Performed By: #### C BCAD, MG, URIC, LIPD, PHOS, CMP, DBIL #### [facility] [address], [place] [id number] Albumin/Globulin [Mass ratio] 2.8 {ratio} High 1.0-2.5 [facility] Comment on above: Performed By: #### C BCAD, MG, URIC, LIPD, PHOS, CMP, DBIL #### [facility] [address], [place] [id number] ALP [Catalytic activity/Vol] 79 U/L Normal 40-129 [facility] Comment on above: Performed By: #### C BCAD, MG, URIC, LIPD, PHOS, CMP, DBIL #### [facility] [address], [place] [id number] ALT [Catalytic activity/Vol] 29 U/L Normal 9-46 [facility] Comment on above: Result Comment: 03/17 Female reference range changed. Performed By: #### C BCAD, MG, URIC, LIPD, PHOS, CMP, DBIL #### [facility] [address], [place] [id number] Anion gap [Moles/Vol] 23 mmol/L High 12-20 [facility] Comment on above: Result Comment: Effe ctive 04/22/2019 reference range changed. Performed By: #### C BCAD, MG, URIC, LIPD, PHOS, CMP, DBIL #### [facility] [address], [place] [id number] AST [Catalytic activity/Vol] 25 U/L Normal 10-40 [facility] Comment on above: Performed By: #### C BCAD, MG, URIC, LIPD, PHOS, CMP, DBIL #### [facility] [address], [place] [id number] Bilirubin [Mass/Vol] 0.66 mg/dL Normal 0.30-1.20 [facility] Comment on above: Performed By: #### C BCAD, MG, URIC, LIPD, PHOS, CMP, DBIL #### [facility] [address], [place] [id number] BUN/CREA 18 Ratio Normal 6-22 [facility] Comment on above: Performed By: #### C BCAD, MG, URIC, LIPD, PHOS, CMP, DBIL #### [facility] [address], [place] [id number] Calcium [Mass/Vol] 10.0 mg/dL Normal 8.6-10.[address] [facility] Comment on above: Performed By: #### C BCAD, MG, URIC, LIPD, PHOS, CMP, DBIL #### [facility] [address], [place] [id number] Chloride [Moles/Vol] 105 mmol/L Normal 98-107 [facility] Comment on above: Performed By: #### C BCAD, MG, URIC, LIPD, PHOS, CMP, DBIL #### [facility] [address], [place] [id number] CO2 [Moles/Vol] 20 mmol/L Normal 20-31 [facility] Comment on above: Performed By: #### C BCAD, MG, URIC, LIPD, PHOS, CMP, DBIL #### [facility] [address], [place] [id number] Creatinine [Mass/Vol] 1.2 mg/dL Normal 0.7-1.4 [facility] Comment on above: Performed By: #### C BCAD, MG, URIC, LIPD, PHOS, CMP, DBIL #### [facility] [address], [place] [id number] eGFRAA 72 mL/min/1.73m2 Normal >60 [facility] Comment on above: Performed By: #### C BCAD, MG, URIC, LIPD, PHOS, CMP, DBIL #### [facility] [address], [place] [id number] eGFRNAA 59 mL/min/1.73m2 Low >60 [facility] Comment on above: Performed By: #### C BCAD, MG, URIC, LIPD, PHOS, CMP, DBIL #### [facility] [address], [place] [id number] Globulin (S) [Mass/Vol] 1.8 g/dL Low 1.9-3.7 [facility] Comment on above: Performed By: #### C BCAD, MG, URIC, LIPD, PHOS, CMP, DBIL #### [facility] [address], [place] [id number] Glucose [Mass/Vol] 121 mg/dL High 65-99 [facility] [employer] [facility] Comment on above: Result Comment: For FASTING Glucose --- ADA reference ranges: Normal 65-99 mg/dl Prediabetes 100-125 Diabetes >/= 126 Performed By: #### C BCAD, MG, URIC, LIPD, PHOS, CMP, DBIL #### [facility] [address], [place] [id number] Potassium [Moles/Vol] 4.5 mmol/L Normal 3.5-5.5 [facility] Comment on above: Performed By: #### C BCAD, MG, URIC, LIPD, PHOS, CMP, DBIL #### [facility] [address], [place] [id number] Protein [Mass/Vol] 6.8 g/dL Normal 6.1-8.1 [facility] Comment on above: Performed By: #### C BCAD, MG, URIC, LIPD, PHOS, CMP, DBIL #### [facility] [address], [place] [id number] Sodium [Moles/Vol] 143 mmol/L Normal 135-146 [facility] Comment on above: Performed By: #### C BCAD, MG, URIC, LIPD, PHOS, CMP, DBIL #### [facility] [address], [place] [id number] Urea nitrogen [Mass/Vol] 23 mg/dL Normal 7-25 [facility] Comment on above: Performed By: #### C BCAD, MG, URIC, LIPD, PHOS, CMP, DBIL #### [facility] [address], [place] [id number] Lipid Panelon 09-27-2021 Cholesterol [Mass/Vol] 131 mg/dL Normal 125-200 [facility] Comment on above: Result Comment: Low risk < 200mg/dL Borderline risk 201-239 mg/dl High risk > or equal to 240 Performed By: #### C BCAD, MG, URIC, LIPD, PHOS, CMP, DBIL #### [facility] [address], [place] [id number] Cholesterol in HDL [Mass/Vol] 43 mg/dL Normal >40 [facility] Comment on above: Result Comment: High Cardiovascular Risk HDL <40 mg/dL Low Cardiovascular Risk HDL > or equal to 60 mg/dl Performed By: #### C BCAD, MG, URIC, LIPD, PHOS, CMP, DBIL #### [facility] [address], [place] [id number] Cholesterol in LDL [Mass/Vol] 52 mg/dL Normal [facility] Comment on above: Result Comment: LDL ATP III CLASSIFICATION LDL less than 100 mg/dl Optimal LDL 100-129 mg/dl Near or above optimal LDL 130-159 Borderline high LDL 160-189 High LDL greater than 189 mg/dl Very High Performed By: #### C BCAD, MG, URIC, LIPD, PHOS, CMP, DBIL #### [facility] [address], [place] [id number] Cholesterol in VLDL [Mass/Vol] 36 mg/dL Normal [facility] Comment on above: Performed By: #### C BCAD, MG, URIC, LIPD, PHOS, CMP, DBIL #### [facility] [address], [place] [id number] Cholesterol.total/Ch olesterol in HDL [Mass ratio] 3 {ratio} Normal [facility] Comment on above: Performed By: #### C BCAD, MG, URIC, LIPD, PHOS, CMP, DBIL #### [facility] [address], [place] [id number] Triglyceride [Mass/Vol] 180 mg/dL High 30-150 [facility] Comment on above: Result Comment: TRIG ATPIII CLASSIFICATIONS TRIG less than 150 mg/dl Normal TRIG 150-199 mg/dl Borderline High TRIG 200-500 mg/dl High TRIG greather than 500 mg/dl Very High Performed By: #### C BCAD, MG, URIC, LIPD, PHOS, CMP, DBIL #### [facility] [address], [place] [id number] Magnesiumon 09-27-2021 Magnesium [Mass/Vol] 1.9 mg/dL Normal 1.5-2.3 [facility] Comment on above: Performed By: #### C BCAD, MG, URIC, LIPD, PHOS, CMP, DBIL #### [facility] [address], [place] [id number] Phosphoruson 09-27-2021 Phosphate [Mass/Vol] 3.6 mg/dL Normal 2.2-4.4 [facility] Comment on above: Performed By: #### C BCAD, MG, URIC, LIPD, PHOS, CMP, DBIL #### [facility] [address], [place] [id number] Uric Acidon 09-27-2021 URIC 6.5 mg/dL Normal 4.0-8.0 [facility] Comment on above: Result Comment: Refe rence range change 03/03/2017. Prior reference range F 2.4-5.7mg/dL. M 3.4-7.0 mg/dL. Performed By: #### C BCAD, MG, URIC, LIPD, PHOS, CMP, DBIL #### [facility] [address], [place] [id number] Bilirubin, Directon 05-20 22 DBIL <0.2 Normal [facility] Comment on above: Result Comment: Refe rence range change 03/03/2017. Prior reference range 0.1-0.3 mg/dL. Performed By: #### C BCAD, MG, URIC, LIPD, PHOS, CMP, DBIL #### [facility] [address], [place] [id number] Complete Blood Count with Au to Diffon 05-10-2022 Basophils (Bld) [#/Vol] 0.06 10*3/uL Normal 0.00-0.20 [facility] Comment on above: Performed By: #### C BCAD, MG, URIC, LIPD, PHOS, CMP, DBIL #### [facility] [address], [place] [id number] Basophils/100 WBC (Bld) 1.1 % Normal [facility] Comment on above: Performed By: #### C BCAD, MG, URIC, LIPD, PHOS, CMP, DBIL #### [facility] [address], [place] [id number] Eosinophils (Bld) [#/Vol] 0.10 10*3/uL Normal 0.02-0.50 [facility] Comment on above: Performed By: #### C BCAD, MG, URIC, LIPD, PHOS, CMP, DBIL #### [facility] [address], [place] [id number] Eosinophils/100 WBC (Bld) 1.8 % Normal [facility] Comment on above: Performed By: #### C BCAD, MG, URIC, LIPD, PHOS, CMP, DBIL #### [facility] [address], [place] [id number] Erythrocyte distribution width (RBC) [Ratio] 14.5 % Normal 11.0-15.0 [facility] Comment on above: Performed By: #### C BCAD, MG, URIC, LIPD, PHOS, CMP, DBIL #### [facility] [address], [place] [id number] Hematocrit (Bld) [Volume fraction] 50.4 % High 38.5-50.0 [facility] Comment on above: Performed By: #### C BCAD, MG, URIC, LIPD, PHOS, CMP, DBIL #### [facility] [address], [place] [id number] Hemoglobin (Bld) [Mass/Vol] 16.4 g/dL Normal 13.0-17.1 [facility] Comment on above: Performed By: #### C BCAD, MG, URIC, LIPD, PHOS, CMP, DBIL #### [facility] [address], [place] [id number] Lymphocytes (Bld) [#/Vol] 0.9 10*3/uL Normal 0.9-3.9 [facility] Comment on above: Performed By: #### C BCAD, MG, URIC, LIPD, PHOS, CMP, DBIL #### [facility] [address], [place] [id number] Lymphocytes/100 WBC (Bld) 15.2 % Normal [facility] Comment on above: Performed By: #### C BCAD, MG, URIC, LIPD, PHOS, CMP, DBIL #### [facility] [address], [place] [id number] MCH (RBC) [Entitic mass] 30.5 pg Normal 27.0-33.0 [facility] Comment on above: Performed By: #### C BCAD, MG, URIC, LIPD, PHOS, CMP, DBIL #### [facility] [address], [place] [id number] MCHC (RBC) [Mass/Vol] 32.5 g/dL Normal 32.0-36.0 [facility] Comment on above: Performed By: #### C BCAD, MG, URIC, LIPD, PHOS, CMP, DBIL #### [facility] [address], [place] [id number] MCV (RBC) [Entitic vol] 94 fL Normal 80-100 [facility] Comment on above: Performed By: #### C BCAD, MG, URIC, LIPD, PHOS, CMP, DBIL #### [facility] [address], [place] [id number] Monocytes (Bld) [#/Vol] 0.7 10*3/uL Normal 0.2-0.9 [facility] Comment on above: Performed By: #### C BCAD, MG, URIC, LIPD, PHOS, CMP, DBIL #### [facility] [address], [place] [id number] Monocytes/100 WBC (Bld) 12.7 % Normal [facility] [employer] [facility] Comment on above: Performed By: #### C BCAD, MG, URIC, LIPD, PHOS, CMP, DBIL #### [facility] [address], [place] [id number] Neutrophils (Bld) [#/Vol] 3.9 10*3/uL Normal 1.5-7.8 [facility] Comment on above: Performed By: #### C BCAD, MG, URIC, LIPD, PHOS, CMP, DBIL #### [facility] [address], [place] [id number] Neutrophils/100 WBC (Bld) 68.7 % Normal [facility] Comment on above: Performed By: #### C BCAD, MG, URIC, LIPD, PHOS, CMP, DBIL #### [facility] [address], [place] [id number] Platelet mean volume (Bld) [Entitic vol] 11.20 fL Normal 7.50-12.50 [facility] Comment on above: Performed By: #### C BCAD, MG, URIC, LIPD, PHOS, CMP, DBIL #### [facility] [address], [place] [id number] Platelets (Bld) [#/Vol] 230 10*3/uL Normal 140-400 [facility] Comment on above: Performed By: #### C BCAD, MG, URIC, LIPD, PHOS, CMP, DBIL #### [facility] [address], [place] [id number] RBC (Bld) [#/Vol] 5.38 10*6/uL Normal 4.20-5.80 [facility] Comment on above: Performed By: #### C BCAD, MG, URIC, LIPD, PHOS, CMP, DBIL #### [facility] [address], [place] [id number] RDW-SD 49.1 fL Normal 37.0-50.0 [facility] Comment on above: Performed By: #### C BCAD, MG, URIC, LIPD, PHOS, CMP, DBIL #### [facility] [address], [place] [id number] WBC (Bld) [#/Vol] 5.6 10*3/uL Normal 3.8-11.0 [facility] [employer] [facility] Comment on above: Performed By: #### C BCAD, MG, URIC, LIPD, PHOS, CMP, DBIL #### [facility] [address], [place] [id number] Comprehensive Metabolic Pane nitin 08-24-2021 Albumin [Mass/Vol] 5.0 g/dL Normal 3.6-5.1 [facility] [facility] Comment on above: Performed By: #### C BCAD, MG, URIC, LIPD, PHOS, CMP, DBIL #### [facility] [address], [place] [id number] Albumin/Globulin [Mass ratio] 2.6 {ratio} High 1.0-2.5 [facility] Comment on above: Performed By: #### C BCAD, MG, URIC, LIPD, PHOS, CMP, DBIL #### [facility] [address], [place] [id number] ALP [Catalytic activity/Vol] 75 U/L Normal 40-129 [facility] Comment on above: Performed By: #### C BCAD, MG, URIC, LIPD, PHOS, CMP, DBIL #### [facility] [address], [place] [id number] ALT [Catalytic activity/Vol] 30 U/L Normal 9-46 [facility] Comment on above: Result Comment: 03/17 Female reference range changed. Performed By: #### C BCAD, MG, URIC, LIPD, PHOS, CMP, DBIL #### [facility] [address], [place] [id number] Anion gap [Moles/Vol] 18 mmol/L Normal 12-20 [facility] Comment on above: Result Comment: Effe ctive 04/22/2019 reference range changed. Performed By: #### C BCAD, MG, URIC, LIPD, PHOS, CMP, DBIL #### [facility] [address], [place] [id number] AST [Catalytic activity/Vol] 26 U/L Normal 10-40 [employer] [facility] [facility] Comment on above: Performed By: #### C BCAD, MG, URIC, LIPD, PHOS, CMP, DBIL #### [facility] [address], [place] [id number] Bilirubin [Mass/Vol] 0.67 mg/dL Normal 0.30-1.20 [facility] Comment on above: Performed By: #### C BCAD, MG, URIC, LIPD, PHOS, CMP, DBIL #### [facility] [address], [place] [id number] BUN/CREA 19 Ratio Normal 6-22 [facility] Comment on above: Performed By: #### C BCAD, MG, URIC, LIPD, PHOS, CMP, DBIL #### [facility] [address], [place] [id number] Calcium [Mass/Vol] 9.9 mg/dL Normal 8.6-10.[address] [facility] Comment on above: Performed By: #### C BCAD, MG, URIC, LIPD, PHOS, CMP, DBIL #### [facility] [address], [place] [id number] Chloride [Moles/Vol] 103 mmol/L Normal 98-107 [facility] Comment on above: Performed By: #### C BCAD, MG, URIC, LIPD, PHOS, CMP, DBIL #### [facility] [address], [place] [id number] CO2 [Moles/Vol] 25 mmol/L Normal 20-31 [facility] Comment on above: Performed By: #### C BCAD, MG, URIC, LIPD, PHOS, CMP, DBIL #### [facility] [address], [place] [id number] Creatinine [Mass/Vol] 1.1 mg/dL Normal 0.7-1.4 [facility] Comment on above: Performed By: #### C BCAD, MG, URIC, LIPD, PHOS, CMP, DBIL #### [facility] [address], [place] [id number] eGFRAA 81 mL/min/1.73m2 Normal >60 [facility] Comment on above: Performed By: #### C BCAD, MG, URIC, LIPD, PHOS, CMP, DBIL #### [facility] [address], [place] [id number] eGFRNAA 67 mL/min/1.73m2 Normal >60 [facility] Comment on above: Performed By: #### C BCAD, MG, URIC, LIPD, PHOS, CMP, DBIL #### [facility] [address], [place] [id number] Globulin (S) [Mass/Vol] 1.9 g/dL Normal 1.9-3.7 [facility] Comment on above: Performed By: #### C BCAD, MG, URIC, LIPD, PHOS, CMP, DBIL #### [facility] [address], [place] [id number] Glucose [Mass/Vol] 125 mg/dL High 65-99 [facility] [employer] [facility] Comment on above: Result Comment: For FASTING Glucose --- ADA reference ranges: Normal 65-99 mg/dl Prediabetes 100-125 Diabetes >/= 126 Performed By: #### C BCAD, MG, URIC, LIPD, PHOS, CMP, DBIL #### [facility] [address], [place] [id number] Potassium [Moles/Vol] 4.2 mmol/L Normal 3.5-5.5 [facility] Comment on above: Performed By: #### C BCAD, MG, URIC, LIPD, PHOS, CMP, DBIL #### [facility] [address], [place] [id number] Protein [Mass/Vol] 6.9 g/dL Normal 6.1-8.1 [facility] [employer] [facility] Comment on above: Performed By: #### C BCAD, MG, URIC, LIPD, PHOS, CMP, DBIL #### [facility] [address], [place] [id number] Sodium [Moles/Vol] 141 mmol/L Normal 135-146 [facility] [facility] Comment on above: Performed By: #### C BCAD, MG, URIC, LIPD, PHOS, CMP, DBIL #### [facility] [address], [place] [id number] Urea nitrogen [Mass/Vol] 22 mg/dL Normal 7-25 [facility] Comment on above: Performed By: #### C BCAD, MG, URIC, LIPD, PHOS, CMP, DBIL #### [facility] [address], [place] [id number] Hemoglobin A1Con 08-24-2021 EAG 134.11 Normal [facility] Comment on above: Performed By: #### C BCAD, MG, URIC, LIPD, PHOS, CMP, DBIL #### [facility] [address], [place] [id number] HbA1c (Bld) [Mass fraction] 6.3 % High 4.0-6.0 [facility] Comment on above: Performed By: #### C BCAD, MG, URIC, LIPD, PHOS, CMP, DBIL #### [facility] [address], [place] [id number] Lipid Panelon 08-24-2021 Cholesterol [Mass/Vol] 110 mg/dL Low 125-200 [facility] Comment on above: Result Comment: Low risk < 200mg/dL Borderline risk 201-239 mg/dl High risk > or equal to 240 Performed By: #### C BCAD, MG, URIC, LIPD, PHOS, CMP, DBIL #### [facility] [address], [place] [id number] Cholesterol in HDL [Mass/Vol] 38 mg/dL Low >40 [facility] Comment on above: Result Comment: High Cardiovascular Risk HDL <40 mg/dL Low Cardiovascular Risk HDL > or equal to 60 mg/dl Performed By: #### C BCAD, MG, URIC, LIPD, PHOS, CMP, DBIL #### [facility] [address], [place] [id number] Cholesterol in LDL [Mass/Vol] 46 mg/dL Normal [facility] Comment on above: Result Comment: LDL ATP III CLASSIFICATION LDL less than 100 mg/dl Optimal LDL 100-129 mg/dl Near or above optimal LDL 130-159 Borderline high LDL 160-189 High LDL greater than 189 mg/dl Very High Performed By: #### C BCAD, MG, URIC, LIPD, PHOS, CMP, DBIL #### [facility] [address], [place] [id number] Cholesterol in VLDL [Mass/Vol] 26 mg/dL Normal [facility] Comment on above: Performed By: #### C BCAD, MG, URIC, LIPD, PHOS, CMP, DBIL #### [facility] [address], [place] [id number] Cholesterol.total/Ch olesterol in HDL [Mass ratio] 3 {ratio} Normal [facility] Comment on above: Performed By: #### C BCAD, MG, URIC, LIPD, PHOS, CMP, DBIL #### [facility] [address], [place] [id number] Triglyceride [Mass/Vol] 131 mg/dL Normal 30-150 [facility] Comment on above: Result Comment: TRIG ATPIII CLASSIFICATIONS TRIG less than 150 mg/dl Normal TRIG 150-199 mg/dl Borderline High TRIG 200-500 mg/dl High TRIG greather than 500 mg/dl Very High Performed By: #### C BCAD, MG, URIC, LIPD, PHOS, CMP, DBIL #### [facility] [address], [place] [id number] Magnesiumon 08-24-2021 Magnesium [Mass/Vol] 2.0 mg/dL Normal 1.5-2.3 [facility] Comment on above: Performed By: #### C BCAD, MG, URIC, LIPD, PHOS, CMP, DBIL #### [facility] [address], [place] [id number] Phosphoruson 08-24-2021 Phosphate [Mass/Vol] 3.5 mg/dL Normal 2.2-4.4 [facility] Comment on above: Performed By: #### C BCAD, MG, URIC, LIPD, PHOS, CMP, DBIL #### [facility] [address], [place] [id number] Uric Acidon 08-24-2021 URIC 6.6 mg/dL Normal 4.0-8.0 [facility] Comment on above: Result Comment: Refe rence range change 03/03/2017. Prior reference range F 2.4-5.7mg/dL. M 3.4-7.0 mg/dL. Performed By: #### C BCAD, MG, URIC, LIPD, PHOS, CMP, DBIL #### [facility] [address], [place] [id number] Bilirubin, Directon 07-30-19 22 DBIL <0.2 Normal [facility] Comment on above: Result Comment: Refe rence range change 03/03/2017. Prior reference range 0.1-0.3 mg/dL. Performed By: #### C BCAD, MG, URIC, LIPD, PHOS, CMP, DBIL #### [facility] [address], [place] [id number] Complete Blood Count with Au to Diffon 07-29-2021 Basophils (Bld) [#/Vol] 0.07 10*3/uL Normal 0.00-0.20 [facility] Comment on above: Performed By: #### C BCAD, MG, URIC, LIPD, PHOS, CMP, DBIL #### [facility] [address], [place] [id number] Basophils/100 WBC (Bld) 1.1 % Normal [facility] Comment on above: Performed By: #### C BCAD, MG, URIC, LIPD, PHOS, CMP, DBIL #### [facility] [address], [place] [id number] Eosinophils (Bld) [#/Vol] 0.15 10*3/uL Normal 0.02-0.50 [facility] Comment on above: Performed By: #### C BCAD, MG, URIC, LIPD, PHOS, CMP, DBIL #### [facility] [address], [place] [id number] Eosinophils/100 WBC (Bld) 2.4 % Normal [facility] Comment on above: Performed By: #### C BCAD, MG, URIC, LIPD, PHOS, CMP, DBIL #### [facility] [address], [place] [id number] Erythrocyte distribution width (RBC) [Ratio] 14.0 % Normal 11.0-15.0 [facility] Comment on above: Performed By: #### C BCAD, MG, URIC, LIPD, PHOS, CMP, DBIL #### [facility] [address], [place] [id number] Hematocrit (Bld) [Volume fraction] 50.3 % High 38.5-50.0 [facility] Comment on above: Performed By: #### C BCAD, MG, URIC, LIPD, PHOS, CMP, DBIL #### [facility] [address], [place] [id number] Hemoglobin (Bld) [Mass/Vol] 16.5 g/dL Normal 13.0-17.1 [facility] Comment on above: Performed By: #### C BCAD, MG, URIC, LIPD, PHOS, CMP, DBIL #### [facility] [address], [place] [id number] Lymphocytes (Bld) [#/Vol] 0.9 10*3/uL Normal 0.9-3.9 [facility] Comment on above: Performed By: #### C BCAD, MG, URIC, LIPD, PHOS, CMP, DBIL #### [facility] [address], [place] [id number] Lymphocytes/100 WBC (Bld) 13.4 % Normal [facility] Comment on above: Performed By: #### C BCAD, MG, URIC, LIPD, PHOS, CMP, DBIL #### [facility] [address], [place] [id number] MCH (RBC) [Entitic mass] 29.9 pg Normal 27.0-33.0 [facility] Comment on above: Performed By: #### C BCAD, MG, URIC, LIPD, PHOS, CMP, DBIL #### [facility] [address], [place] [id number] MCHC (RBC) [Mass/Vol] 32.8 g/dL Normal 32.0-36.0 [facility] Comment on above: Performed By: #### C BCAD, MG, URIC, LIPD, PHOS, CMP, DBIL #### [facility] [address] [place], [place] [id number] MCV (RBC) [Entitic vol] 91 fL Normal 80-100 [facility] Comment on above: Performed By: #### C BCAD, MG, URIC, LIPD, PHOS, CMP, DBIL #### [facility] [address], [place] [id number] Monocytes (Bld) [#/Vol] 0.5 10*3/uL Normal 0.2-0.9 [facility] Comment on above: Performed By: #### C BCAD, MG, URIC, LIPD, PHOS, CMP, DBIL #### [facility] [address], [place] [id number] Monocytes/100 WBC (Bld) 8.5 % Normal [facility] Comment on above: Performed By: #### C BCAD, MG, URIC, LIPD, PHOS, CMP, DBIL #### [facility] [address], [place] [id number] Neutrophils (Bld) [#/Vol] 4.7 10*3/uL Normal 1.5-7.8 [facility] Comment on above: Performed By: #### C BCAD, MG, URIC, LIPD, PHOS, CMP, DBIL #### [facility] [address], [place] [id number] Neutrophils/100 WBC (Bld) 73.8 % Normal [facility] Comment on above: Performed By: #### C BCAD, MG, URIC, LIPD, PHOS, CMP, DBIL #### [facility] [address], [place] [id number] Platelet mean volume (Bld) [Entitic vol] 10.40 fL Normal 7.50-12.50 [facility] Comment on above: Performed By: #### C BCAD, MG, URIC, LIPD, PHOS, CMP, DBIL #### [facility] [address], [place] [id number] Platelets (Bld) [#/Vol] 266 10*3/uL Normal 140-400 [facility] Comment on above: Performed By: #### C BCAD, MG, URIC, LIPD, PHOS, CMP, DBIL #### [facility] [address], [place] [id number] RBC (Bld) [#/Vol] 5.51 10*6/uL Normal 4.20-5.80 [facility] Comment on above: Performed By: #### C BCAD, MG, URIC, LIPD, PHOS, CMP, DBIL #### [facility] [address], [place] [id number] RDW-SD 47.4 fL Normal 37.0-50.0 [facility] Comment on above: Performed By: #### C BCAD, MG, URIC, LIPD, PHOS, CMP, DBIL #### [facility] [address], [place] [id number] WBC (Bld) [#/Vol] 6.3 10*3/uL Normal 3.8-11.0 [facility] Comment on above: Performed By: #### C BCAD, MG, URIC, LIPD, PHOS, CMP, DBIL #### [facility] [address], [place] [id number] Comprehensive Metabolic Pane nitin 07-29-2021 Albumin [Mass/Vol] 5.0 g/dL Normal 3.6-5.1 [facility] Comment on above: Performed By: #### C BCAD, MG, URIC, LIPD, PHOS, CMP, DBIL #### [facility] [address], [place] [id number] Albumin/Globulin [Mass ratio] 2.6 {ratio} High 1.0-2.5 [facility] Comment on above: Performed By: #### C BCAD, MG, URIC, LIPD, PHOS, CMP, DBIL #### [facility] [address], [place] [id number] ALP [Catalytic activity/Vol] 73 U/L Normal 40-129 [facility] Comment on above: Performed By: #### C BCAD, MG, URIC, LIPD, PHOS, CMP, DBIL #### [facility] [address], [place] [id number] ALT [Catalytic activity/Vol] 27 U/L Normal 9-46 [facility] Comment on above: Result Comment: 03/17 Female reference range changed. Performed By: #### C BCAD, MG, URIC, LIPD, PHOS, CMP, DBIL #### [facility] [address], [place] [id number] Anion gap [Moles/Vol] 18 mmol/L Normal 12-20 [facility] Comment on above: Result Comment: Effe ctive 04/22/2019 reference range changed. Performed By: #### C BCAD, MG, URIC, LIPD, PHOS, CMP, DBIL #### [facility] [address], [place] [id number] AST [Catalytic activity/Vol] 23 U/L Normal 10-40 [facility] Comment on above: Performed By: #### C BCAD, MG, URIC, LIPD, PHOS, CMP, DBIL #### [facility] [address], [place] [id number] Bilirubin [Mass/Vol] 0.68 mg/dL Normal 0.30-1.20 [facility] Comment on above: Performed By: #### C BCAD, MG, URIC, LIPD, PHOS, CMP, DBIL #### [facility] [address], [place] [id number] BUN/CREA 16 Ratio Normal 6-22 [facility] Comment on above: Performed By: #### C BCAD, MG, URIC, LIPD, PHOS, CMP, DBIL #### [facility] [address], [place] [id number] Calcium [Mass/Vol] 10.0 mg/dL Normal 8.6-10.[address] [facility] Comment on above: Performed By: #### C BCAD, MG, URIC, LIPD, PHOS, CMP, DBIL #### [facility] [address], [place] [id number] Chloride [Moles/Vol] 103 mmol/L Normal 98-107 [facility] Comment on above: Performed By: #### C BCAD, MG, URIC, LIPD, PHOS, CMP, DBIL #### [facility] [address], [place] [id number] CO2 [Moles/Vol] 25 mmol/L Normal 20-31 [facility] Comment on above: Performed By: #### C BCAD, MG, URIC, LIPD, PHOS, CMP, DBIL #### [facility] [address], [place] [id number] Creatinine [Mass/Vol] 1.1 mg/dL Normal 0.7-1.4 [facility] Comment on above: Performed By: #### C BCAD, MG, URIC, LIPD, PHOS, CMP, DBIL #### [facility] [address], [place] [id number] eGFRAA 80 mL/min/1.73m2 Normal >60 [facility] Comment on above: Performed By: #### C BCAD, MG, URIC, LIPD, PHOS, CMP, DBIL #### [facility] [address], [place] [id number] eGFRNAA 66 mL/min/1.73m2 Normal >60 [facility] Comment on above: Performed By: #### C BCAD, MG, URIC, LIPD, PHOS, CMP, DBIL #### [facility] [address], [place] [id number] Globulin (S) [Mass/Vol] 1.9 g/dL Normal 1.9-3.7 [facility] Comment on above: Performed By: #### C BCAD, MG, URIC, LIPD, PHOS, CMP, DBIL #### [facility] [address], [place] [id number] Glucose [Mass/Vol] 109 mg/dL High 65-[address] [facility] Comment on above: Result Comment: For FASTING Glucose --- ADA reference ranges: Normal 65-99 mg/dl Prediabetes 100-125 Diabetes >/= 126 Performed By: #### C BCAD, MG, URIC, LIPD, PHOS, CMP, DBIL #### [facility] [address], [place] [id number] Potassium [Moles/Vol] 4.7 mmol/L Normal 3.5-5.5 [facility] Comment on above: Performed By: #### C BCAD, MG, URIC, LIPD, PHOS, CMP, DBIL #### [facility] [address], [place] [id number] Protein [Mass/Vol] 6.9 g/dL Normal 6.1-8.1 [facility] Comment on above: Performed By: #### C BCAD, MG, URIC, LIPD, PHOS, CMP, DBIL #### [facility] [address], [place] [id number] Sodium [Moles/Vol] 141 mmol/L Normal 135-146 [facility] Comment on above: Performed By: #### C BCAD, MG, URIC, LIPD, PHOS, CMP, DBIL #### [facility] [address], [place] [id number] Urea nitrogen [Mass/Vol] 18 mg/dL Normal 7-25 [facility] Comment on above: Performed By: #### C BCAD, MG, URIC, LIPD, PHOS, CMP, DBIL #### [facility] [address], [place] [id number] Lipid Panelon 07-29-2021 Cholesterol [Mass/Vol] 121 mg/dL Low 125-200 [facility] Comment on above: Result Comment: Low risk < 200mg/dL Borderline risk 201-239 mg/dl High risk > or equal to 240 Performed By: #### C BCAD, MG, URIC, LIPD, PHOS, CMP, DBIL #### [facility] [address], [place] [id number] Cholesterol in HDL [Mass/Vol] 41 mg/dL Normal >40 [facility] Comment on above: Result Comment: High Cardiovascular Risk HDL <40 mg/dL Low Cardiovascular Risk HDL > or equal to 60 mg/dl Performed By: #### C BCAD, MG, URIC, LIPD, PHOS, CMP, DBIL #### [facility] [address], [place] [id number] Cholesterol in LDL [Mass/Vol] 56 mg/dL Normal [facility] Comment on above: Result Comment: LDL ATP III CLASSIFICATION LDL less than 100 mg/dl Optimal LDL 100-129 mg/dl Near or above optimal LDL 130-159 Borderline high LDL 160-189 High LDL greater than 189 mg/dl Very High Performed By: #### C BCAD, MG, URIC, LIPD, PHOS, CMP, DBIL #### [facility] [address], [place] [id number] Cholesterol in VLDL [Mass/Vol] 24 mg/dL Normal [facility] Comment on above: Performed By: #### C BCAD, MG, URIC, LIPD, PHOS, CMP, DBIL #### [facility] [address], [place] [id number] Cholesterol.total/Ch olesterol in HDL [Mass ratio] 3 {ratio} Normal [facility] Comment on above: Performed By: #### C BCAD, MG, URIC, LIPD, PHOS, CMP, DBIL #### [facility] [address], [place] [id number] Triglyceride [Mass/Vol] 118 mg/dL Normal 30-150 [facility] Comment on above: Result Comment: TRIG ATPIII CLASSIFICATIONS TRIG less than 150 mg/dl Normal TRIG 150-199 mg/dl Borderline High TRIG 200-500 mg/dl High TRIG greather than 500 mg/dl Very High Performed By: #### C BCAD, MG, URIC, LIPD, PHOS, CMP, DBIL #### [facility] [address], [place] [id number] Magnesiumon 07-29-2021 Magnesium [Mass/Vol] 2.0 mg/dL Normal 1.5-2.3 [facility] Comment on above: Performed By: #### C BCAD, MG, URIC, LIPD, PHOS, CMP, DBIL #### [facility] [address], [place] [id number] Phosphoruson 07-29-2021 Phosphate [Mass/Vol] 3.3 mg/dL Normal 2.2-4.4 [facility] Comment on above: Performed By: #### C BCAD, MG, URIC, LIPD, PHOS, CMP, DBIL #### [facility] [address], [place] [id number] Q - TACROLIMUSon 07-29-2021 TACROLIMUS, HIGHLY SENSITIVE, LC/MS/MS 6.3 mcg/L Normal [facility] Comment on above: Order Comment: [facility] performed at: Q, [facility], [address], [address] [facility], [place], [address], Collection Systems Technician: Shaheed Bazzi MDQuest Collection Date/Time: [id number] Results Received Date/Time: [id number] Reported Date/Time: Result Comment: No d efinitive therapeutic or toxic ranges have been established. Optimal blood drug levels are influenced by type of transplant, patient response, time post- transplant, co-administration of other drugs, and drug formulation. The following trough range is a suggested guideline: 5.0-20.0 mcg/L. This test was developed and its analytical performance characteristics have been determined by [facility]. It has not been cleared or approved by the FDA. This assay has been validated pursuant to the CLIA regulations and is used for clinical purposes. Performed By: #### C BCAD, MG, URIC, LIPD, PHOS, CMP, DBIL #### [facility] [address], [place] [id number] Uric Acidon 07-29-2021 URIC 6.1 mg/dL Normal 4.0-8.0 [facility] Comment on above: Result Comment: Refe rence range change 03/03/2017. Prior reference range F 2.4-5.7mg/dL. M 3.4-7.0 mg/dL. Performed By: #### C BCAD, MG, URIC, LIPD, PHOS, CMP, DBIL #### [facility] [address] [id number] Bilirubin, Directon 06-29-19 DBIL <0.2 Normal [facility] Comment on above: Result Comment: Refe rence range change 03/03/2017. Prior reference range 0.1-0.3 mg/dL. Performed By: #### C BCAD, MG, URIC, LIPD, PHOS, CMP, DBIL #### [facility] [address] [facility] [place] [id number] Complete Blood Count with Au to Diffon 06-28-2021 Basophils (Bld) [#/Vol] 0.05 10*3/uL Normal 0.00-0.20 [facility] Comment on above: Performed By: #### C BCAD, MG, URIC, LIPD, PHOS, CMP, DBIL #### [facility] [address], [place] [id number] Basophils/100 WBC (Bld) 0.8 % Normal [facility] Comment on above: Performed By: #### C BCAD, MG, URIC, LIPD, PHOS, CMP, DBIL #### [facility] [address], [place] [id number] Eosinophils (Bld) [#/Vol] 0.10 10*3/uL Normal 0.02-0.50 [facility] Comment on above: Performed By: #### C BCAD, MG, URIC, LIPD, PHOS, CMP, DBIL #### [facility] [address], [place] [id number] Eosinophils/100 WBC (Bld) 1.6 % Normal [facility] Comment on above: Performed By: #### C BCAD, MG, URIC, LIPD, PHOS, CMP, DBIL #### [facility] [address], [place] [id number] Erythrocyte distribution width (RBC) [Ratio] 14.6 % Normal 11.0-15.0 [facility] Comment on above: Performed By: #### C BCAD, MG, URIC, LIPD, PHOS, CMP, DBIL #### [facility] [address], [place] [id number] Hematocrit (Bld) [Volume fraction] 50.7 % High 38.5-50.0 [facility] Comment on above: Performed By: #### C BCAD, MG, URIC, LIPD, PHOS, CMP, DBIL #### [facility] [address], [place] [id number] Hemoglobin (Bld) [Mass/Vol] 16.2 g/dL Normal 13.0-17.1 [facility] Comment on above: Performed By: #### C BCAD, MG, URIC, LIPD, PHOS, CMP, DBIL #### [facility] [address], [place] [id number] Lymphocytes (Bld) [#/Vol] 1.0 10*3/uL Normal 0.9-3.9 [facility] Comment on above: Performed By: #### C BCAD, MG, URIC, LIPD, PHOS, CMP, DBIL #### [facility] [address], [place] [id number] Lymphocytes/100 WBC (Bld) 16.2 % Normal [facility] Comment on above: Performed By: #### C BCAD, MG, URIC, LIPD, PHOS, CMP, DBIL #### [facility] [address], [place] [id number] MCH (RBC) [Entitic mass] 30.0 pg Normal 27.0-33.0 [facility] Comment on above: Performed By: #### C BCAD, MG, URIC, LIPD, PHOS, CMP, DBIL #### [facility] [address], [place] [id number] MCHC (RBC) [Mass/Vol] 32.0 g/dL Normal 32.0-36.0 [facility] Comment on above: Performed By: #### C BCAD, MG, URIC, LIPD, PHOS, CMP, DBIL #### [facility] [address], [place] [id number] MCV (RBC) [Entitic vol] 94 fL Normal 80-100 [facility] Comment on above: Performed By: #### C BCAD, MG, URIC, LIPD, PHOS, CMP, DBIL #### [facility] [address], [place] [id number] Monocytes (Bld) [#/Vol] 0.9 10*3/uL Normal 0.2-0.9 [facility] Comment on above: Performed By: #### C BCAD, MG, URIC, LIPD, PHOS, CMP, DBIL #### [facility] [address], [place] [id number] Monocytes/100 WBC (Bld) 13.4 % Normal [facility] Comment on above: Performed By: #### C BCAD, MG, URIC, LIPD, PHOS, CMP, DBIL #### [facility] [address], [place] [id number] Neutrophils (Bld) [#/Vol] 4.3 10*3/uL Normal 1.5-7.8 [facility] Comment on above: Performed By: #### C BCAD, MG, URIC, LIPD, PHOS, CMP, DBIL #### [facility] [address], [place] [id number] Neutrophils/100 WBC (Bld) 67.7 % Normal [facility] Comment on above: Performed By: #### C BCAD, MG, URIC, LIPD, PHOS, CMP, DBIL #### [facility] [address], [place] [id number] Platelet mean volume (Bld) [Entitic vol] 11.00 fL Normal 7.50-12.50 [facility] Comment on above: Performed By: #### C BCAD, MG, URIC, LIPD, PHOS, CMP, DBIL #### [facility] [address], [place] [id number] Platelets (Bld) [#/Vol] 239 10*3/uL Normal 140-400 [facility] Comment on above: Performed By: #### C BCAD, MG, URIC, LIPD, PHOS, CMP, DBIL #### [facility] [address], [place] [id number] RBC (Bld) [#/Vol] 5.40 10*6/uL Normal 4.20-5.80 [facility] Comment on above: Performed By: #### C BCAD, MG, URIC, LIPD, PHOS, CMP, DBIL #### [facility] [address], [place] [id number] RDW-SD 50.2 fL High 37.0-50.0 [facility] Comment on above: Performed By: #### C BCAD, MG, URIC, LIPD, PHOS, CMP, DBIL #### [facility] [address], [place] [id number] WBC (Bld) [#/Vol] 6.4 10*3/uL Normal 3.8-11.0 [facility] [employer] [facility] Comment on above: Performed By: #### C BCAD, MG, URIC, LIPD, PHOS, CMP, DBIL #### [facility] [address], [place] [id number] Comprehensive Metabolic Pane nitin 06-28-2021 Albumin [Mass/Vol] 4.9 g/dL Normal 3.6-5.1 [facility] [facility] Comment on above: Performed By: #### C BCAD, MG, URIC, LIPD, PHOS, CMP, DBIL #### [facility] [address], [place] [id number] Albumin/Globulin [Mass ratio] 3.3 {ratio} High 1.0-2.5 [facility] Comment on above: Performed By: #### C BCAD, MG, URIC, LIPD, PHOS, CMP, DBIL #### [facility] [address], [place] [id number] ALP [Catalytic activity/Vol] 73 U/L Normal 40-129 [facility] Comment on above: Performed By: #### C BCAD, MG, URIC, LIPD, PHOS, CMP, DBIL #### [facility] [address], [place] [id number] ALT [Catalytic activity/Vol] 26 U/L Normal 9-46 [facility] Comment on above: Result Comment: 03/17 Female reference range changed. Performed By: #### C BCAD, MG, URIC, LIPD, PHOS, CMP, DBIL #### [facility] [address], [place] [id number] Anion gap [Moles/Vol] 16 mmol/L Normal 12-20 [facility] Comment on above: Result Comment: Effe ctive 04/22/2019 reference range changed. Performed By: #### C BCAD, MG, URIC, LIPD, PHOS, CMP, DBIL #### [facility] [address], [place] [id number] AST [Catalytic activity/Vol] 23 U/L Normal 10-40 [facility] Comment on above: Performed By: #### C BCAD, MG, URIC, LIPD, PHOS, CMP, DBIL #### [facility] [address], [place] [id number] Bilirubin [Mass/Vol] 0.76 mg/dL Normal 0.30-1.20 [facility] Comment on above: Performed By: #### C BCAD, MG, URIC, LIPD, PHOS, CMP, DBIL #### [facility] [address], [place] [id number] BUN/CREA 15 Ratio Normal 6-22 [facility] Comment on above: Performed By: #### C BCAD, MG, URIC, LIPD, PHOS, CMP, DBIL #### [facility] [address], [place] [id number] Calcium [Mass/Vol] 9.8 mg/dL Normal 8.6-10.[address] [facility] Comment on above: Performed By: #### C BCAD, MG, URIC, LIPD, PHOS, CMP, DBIL #### [facility] [address], [place] [id number] Chloride [Moles/Vol] 103 mmol/L Normal 98-107 [facility] Comment on above: Performed By: #### C BCAD, MG, URIC, LIPD, PHOS, CMP, DBIL #### [facility] [address], [place] [id number] CO2 [Moles/Vol] 26 mmol/L Normal 20-31 [facility] Comment on above: Performed By: #### C BCAD, MG, URIC, LIPD, PHOS, CMP, DBIL #### [facility] [address], [place] [id number] Creatinine [Mass/Vol] 1.1 mg/dL Normal 0.7-1.4 [facility] Comment on above: Performed By: #### C BCAD, MG, URIC, LIPD, PHOS, CMP, DBIL #### [facility] [address], [place] [id number] eGFRAA 80 mL/min/1.73m2 Normal >60 [facility] Comment on above: Performed By: #### C BCAD, MG, URIC, LIPD, PHOS, CMP, DBIL #### [facility] [address], [place] [id number] eGFRNAA 66 mL/min/1.73m2 Normal >60 [facility] Comment on above: Performed By: #### C BCAD, MG, URIC, LIPD, PHOS, CMP, DBIL #### [facility] [address], [place] [id number] Globulin (S) [Mass/Vol] 1.5 g/dL Low 1.9-3.7 [facility] Comment on above: Performed By: #### C BCAD, MG, URIC, LIPD, PHOS, CMP, DBIL #### [facility] [address], [place] [id number] Glucose [Mass/Vol] 130 mg/dL High 65-99 [facility] [employer] [facility] Comment on above: Result Comment: For FASTING Glucose --- ADA reference ranges: Normal 65-99 mg/dl Prediabetes 100-125 Diabetes >/= 126 Performed By: #### C BCAD, MG, URIC, LIPD, PHOS, CMP, DBIL #### [facility] [address], [place] [id number] Potassium [Moles/Vol] 4.6 mmol/L Normal 3.5-5.5 [facility] Comment on above: Performed By: #### C BCAD, MG, URIC, LIPD, PHOS, CMP, DBIL #### [facility] [address], [place] [id number] Protein [Mass/Vol] 6.4 g/dL Normal 6.1-8.1 [facility] [employer] [facility] Comment on above: Performed By: #### C BCAD, MG, URIC, LIPD, PHOS, CMP, DBIL #### [facility] [address], [place] [id number] Sodium [Moles/Vol] 140 mmol/L Normal 135-146 [facility] [employer] [facility] Comment on above: Performed By: #### C BCAD, MG, URIC, LIPD, PHOS, CMP, DBIL #### [facility] [address] [place], [place] [id number] Urea nitrogen [Mass/Vol] 17 mg/dL Normal 7-25 [facility] Comment on above: Performed By: #### C BCAD, MG, URIC, LIPD, PHOS, CMP, DBIL #### [facility] [address] [place], [place] [id number] Lipid Panelon 06-28-2021 Cholesterol [Mass/Vol] 111 mg/dL Low 125-200 [facility] Comment on above: Result Comment: Low risk < 200mg/dL Borderline risk 201-239 mg/dl High risk > or equal to 240 Performed By: #### C BCAD, MG, URIC, LIPD, PHOS, CMP, DBIL #### [facility] [address] [facility] [place] [place] [id number] Cholesterol in HDL [Mass/Vol] 38 mg/dL Low >40 [facility] Comment on above: Result Comment: High Cardiovascular Risk HDL <40 mg/dL Low Cardiovascular Risk HDL > or equal to 60 mg/dl Performed By: #### C BCAD, MG, URIC, LIPD, PHOS, CMP, DBIL #### [facility] [address] [facility] [place] [id number] Cholesterol in LDL [Mass/Vol] 47 mg/dL Normal [facility] Comment on above: Result Comment: LDL ATP III CLASSIFICATION LDL less than 100 mg/dl Optimal LDL 100-129 mg/dl Near or above optimal LDL 130-159 Borderline high LDL 160-189 High LDL greater than 189 mg/dl Very High Performed By: #### C BCAD, MG, URIC, LIPD, PHOS, CMP, DBIL #### [facility] [address] [id number] Cholesterol in VLDL [Mass/Vol] 26 mg/dL Normal [facility] Comment on above: Performed By: #### C BCAD, MG, URIC, LIPD, PHOS, CMP, DBIL #### [facility] [address] [place], [place] [id number] Cholesterol.total/Ch olesterol in HDL [Mass ratio] 3 {ratio} Normal [employer] [facility] Comment on above: Performed By: #### C BCAD, MG, URIC, LIPD, PHOS, CMP, DBIL #### [facility] [address], [place] [id number] Triglyceride [Mass/Vol] 132 mg/dL Normal 30-150 [facility] Comment on above: Result Comment: TRIG ATPIII CLASSIFICATIONS TRIG less than 150 mg/dl Normal TRIG 150-199 mg/dl Borderline High TRIG 200-500 mg/dl High TRIG greather than 500 mg/dl Very High Performed By: #### C BCAD, MG, URIC, LIPD, PHOS, CMP, DBIL #### [facility] [address], [place] [id number] Magnesiumon 06-28-2021 Magnesium [Mass/Vol] 1.7 mg/dL Normal 1.5-2.3 [facility] Comment on above: Performed By: #### C BCAD, MG, URIC, LIPD, PHOS, CMP, DBIL #### [facility] [address], [place] [id number] Phosphoruson 06-28-2021 Phosphate [Mass/Vol] 3.7 mg/dL Normal 2.2-4.4 [facility] Comment on above: Performed By: #### C BCAD, MG, URIC, LIPD, PHOS, CMP, DBIL #### [facility] [address], [place] [id number] Uric Acidon 06-28-2021 URIC 6.0 mg/dL Normal 4.0-8.0 [facility] Specialist Comment on above: Result Comment: Refe rence range change 03/03/2017. Prior reference range F 2.4-5.7mg/dL. M 3.4-7.0 mg/dL. Performed By: #### C BCAD, MG, URIC, LIPD, PHOS, CMP, DBIL #### [facility] [address], [place] [id number] Pulmonary Functionon 022 Pulmonary Function MR #: [id number] [facility] PT. Name: Vishal Duke Waldemar Date: 06/02/2021 Date of : 1960 Patient [...] Syed MD Date Trans: 06/06/2021 02:28 P/ DN_JN:[id number] cc: Rosa M Gonzales M.D. [address] [place], [place] [address] [id number] Normal [facility] Bilirubin, Directon 06-01-19 DBIL <0.2 Normal [place] [facility] Comment on above: Result Comment: Refe rence range change 03/03/2017. Prior reference range 0.1-0.3 mg/dL. Performed By: #### C BCAD, MG, URIC, LIPD, PHOS, CMP, DBIL #### [facility] [address], [place] [id number] Complete Blood Count with Au to Diffon 06-01-2021 Basophils (Bld) [#/Vol] 0.06 10*3/uL Normal 0.00-0.20 [facility] Comment on above: Performed By: #### C BCAD, MG, URIC, LIPD, PHOS, CMP, DBIL #### [facility] [address], [place] [id number] Basophils/100 WBC (Bld) 0.9 % Normal [facility] Comment on above: Performed By: #### C BCAD, MG, URIC, LIPD, PHOS, CMP, DBIL #### [facility] [address], [place] [id number] Eosinophils (Bld) [#/Vol] 0.12 10*3/uL Normal 0.02-0.50 [facility] Comment on above: Performed By: #### C BCAD, MG, URIC, LIPD, PHOS, CMP, DBIL #### [facility] [address], [place] [id number] Eosinophils/100 WBC (Bld) 1.8 % Normal [facility] Comment on above: Performed By: #### C BCAD, MG, URIC, LIPD, PHOS, CMP, DBIL #### [facility] [address], [place] [id number] Erythrocyte distribution width (RBC) [Ratio] 14.7 % Normal 11.0-15.0 [facility] Comment on above: Performed By: #### C BCAD, MG, URIC, LIPD, PHOS, CMP, DBIL #### [facility] [address], [place] [id number] Hematocrit (Bld) [Volume fraction] 50.8 % High 38.5-50.0 [facility] Comment on above: Performed By: #### C BCAD, MG, URIC, LIPD, PHOS, CMP, DBIL #### [facility] [address], [place] [id number] Hemoglobin (Bld) [Mass/Vol] 16.5 g/dL Normal 13.0-17.1 [facility] Comment on above: Performed By: #### C BCAD, MG, URIC, LIPD, PHOS, CMP, DBIL #### [facility] [address], [place] [id number] Lymphocytes (Bld) [#/Vol] 1.1 10*3/uL Normal 0.9-3.9 [facility] Comment on above: Performed By: #### C BCAD, MG, URIC, LIPD, PHOS, CMP, DBIL #### [facility] [address], [place] [id number] Lymphocytes/100 WBC (Bld) 16.1 % Normal [facility] Comment on above: Performed By: #### C BCAD, MG, URIC, LIPD, PHOS, CMP, DBIL #### [facility] [address], [place] [id number] MCH (RBC) [Entitic mass] 29.8 pg Normal 27.0-33.0 [facility] Comment on above: Performed By: #### C BCAD, MG, URIC, LIPD, PHOS, CMP, DBIL #### [facility] [address], [place] [id number] MCHC (RBC) [Mass/Vol] 32.5 g/dL Normal 32.0-36.0 [facility] Comment on above: Performed By: #### C BCAD, MG, URIC, LIPD, PHOS, CMP, DBIL #### [facility] [address], [place] [id number] MCV (RBC) [Entitic vol] 92 fL Normal 80-100 [facility] Comment on above: Performed By: #### C BCAD, MG, URIC, LIPD, PHOS, CMP, DBIL #### [facility] [address], [place] [id number] Monocytes (Bld) [#/Vol] 0.8 10*3/uL Normal 0.2-0.9 [facility] Comment on above: Performed By: #### C BCAD, MG, URIC, LIPD, PHOS, CMP, DBIL #### [facility] [address], [place] [id number] Monocytes/100 WBC (Bld) 11.4 % Normal [facility] Comment on above: Performed By: #### C BCAD, MG, URIC, LIPD, PHOS, CMP, DBIL #### [facility] [address], [place] [id number] Neutrophils (Bld) [#/Vol] 4.6 10*3/uL Normal 1.5-7.8 [facility] Comment on above: Performed By: #### C BCAD, MG, URIC, LIPD, PHOS, CMP, DBIL #### [facility] [address], [place] [id number] Neutrophils/100 WBC (Bld) 69.2 % Normal [facility] Comment on above: Performed By: #### C BCAD, MG, URIC, LIPD, PHOS, CMP, DBIL #### [facility] [address], [place] [id number] Platelet mean volume (Bld) [Entitic vol] 10.60 fL Normal 7.50-12.50 [facility] Comment on above: Performed By: #### C BCAD, MG, URIC, LIPD, PHOS, CMP, DBIL #### [facility] [address], [place] [id number] Platelets (Bld) [#/Vol] 285 10*3/uL Normal 140-400 [facility] Comment on above: Performed By: #### C BCAD, MG, URIC, LIPD, PHOS, CMP, DBIL #### [facility] [address], [place] [id number] RBC (Bld) [#/Vol] 5.53 10*6/uL Normal 4.20-5.80 [facility] Comment on above: Performed By: #### C BCAD, MG, URIC, LIPD, PHOS, CMP, DBIL #### [facility] [address], [place] [id number] RDW-SD 49.8 fL Normal 37.0-50.0 [facility] Comment on above: Performed By: #### C BCAD, MG, URIC, LIPD, PHOS, CMP, DBIL #### [facility] [address], [place] [id number] WBC (Bld) [#/Vol] 6.6 10*3/uL Normal 3.8-11.[address] [facility] Comment on above: Performed By: #### C BCAD, MG, URIC, LIPD, PHOS, CMP, DBIL #### [facility] [address], [place] [id number] Comprehensive Metabolic Pane [facility] 06-01-2021 Albumin [Mass/Vol] 5.0 g/dL Normal 3.6-5.[address] [facility] Comment on above: Performed By: #### C BCAD, MG, URIC, LIPD, PHOS, CMP, DBIL #### [facility] [address], [place] [id number] Albumin/Globulin [Mass ratio] 2.6 {ratio} High 1.0-2.5 [facility] Comment on above: Performed By: #### C BCAD, MG, URIC, LIPD, PHOS, CMP, DBIL #### [facility] [address], [place] [id number] ALP [Catalytic activity/Vol] 93 U/L Normal 40-129 [facility] Comment on above: Performed By: #### C BCAD, MG, URIC, LIPD, PHOS, CMP, DBIL #### [facility] [address], [place] [id number] ALT [Catalytic activity/Vol] 30 U/L Normal 9-46 [facility] Comment on above: Result Comment: 03/17 Female reference range changed. Performed By: #### C BCAD, MG, URIC, LIPD, PHOS, CMP, DBIL #### [facility] [address], [place] [id number] Anion gap [Moles/Vol] 21 mmol/L High 12-20 [facility] Comment on above: Result Comment: Effe ctive 04/22/2019 reference range changed. Performed By: #### C BCAD, MG, URIC, LIPD, PHOS, CMP, DBIL #### [facility] [address], [place] [id number] AST [Catalytic activity/Vol] 26 U/L Normal 10-40 [facility] Comment on above: Performed By: #### C BCAD, MG, URIC, LIPD, PHOS, CMP, DBIL #### [facility] [address], [place] [id number] Bilirubin [Mass/Vol] 0.72 mg/dL Normal 0.30-1.20 [facility] Comment on above: Performed By: #### C BCAD, MG, URIC, LIPD, PHOS, CMP, DBIL #### [facility] [address], [place] [id number] BUN/CREA 15 Ratio Normal 6-22 [facility] Comment on above: Performed By: #### C BCAD, MG, URIC, LIPD, PHOS, CMP, DBIL #### [facility] [address], [place] [id number] Calcium [Mass/Vol] 10.4 mg/dL High 8.6-10.[address] [facility] Comment on above: Performed By: #### C BCAD, MG, URIC, LIPD, PHOS, CMP, DBIL #### [facility] [address], [place] [id number] Chloride [Moles/Vol] 104 mmol/L Normal 98-107 [facility] Comment on above: Performed By: #### C BCAD, MG, URIC, LIPD, PHOS, CMP, DBIL #### [facility] [address], [place] [id number] CO2 [Moles/Vol] 24 mmol/L Normal 20-31 [facility] Comment on above: Performed By: #### C BCAD, MG, URIC, LIPD, PHOS, CMP, DBIL #### [facility] [address], [place] [id number] Creatinine [Mass/Vol] 1.2 mg/dL Normal 0.7-1.4 [facility] Comment on above: Performed By: #### C BCAD, MG, URIC, LIPD, PHOS, CMP, DBIL #### [facility] [address], [place] [id number] eGFRAA 79 mL/min/1.73m2 Normal >60 [facility] Comment on above: Performed By: #### C BCAD, MG, URIC, LIPD, PHOS, CMP, DBIL #### [facility] [address], [place] [id number] eGFRNAA 65 mL/min/1.73m2 Normal >60 [facility] Comment on above: Performed By: #### C BCAD, MG, URIC, LIPD, PHOS, CMP, DBIL #### [facility] [address], [place] [id number] Globulin (S) [Mass/Vol] 1.9 g/dL Normal 1.9-3.7 [facility] Comment on above: Performed By: #### C BCAD, MG, URIC, LIPD, PHOS, CMP, DBIL #### [facility] [address], [place] [id number] Glucose [Mass/Vol] 108 mg/dL High 65-99 [facility] [employer] Comment on above: Result Comment: For FASTING Glucose --- ADA reference ranges: Normal 65-99 mg/dl Prediabetes 100-125 Diabetes >/= 126 Performed By: #### C BCAD, MG, URIC, LIPD, PHOS, CMP, DBIL #### [facility] [address], [place] [id number] Potassium [Moles/Vol] 5.0 mmol/L Normal 3.5-5.5 [facility] Comment on above: Performed By: #### C BCAD, MG, URIC, LIPD, PHOS, CMP, DBIL #### [facility] [address], [place] [id number] Protein [Mass/Vol] 6.9 g/dL Normal 6.1-8.1 [facility] [employer] Comment on above: Performed By: #### C BCAD, MG, URIC, LIPD, PHOS, CMP, DBIL #### [facility] [address], [place] [id number] Sodium [Moles/Vol] 143 mmol/L Normal 135-146 [facility] [employer] [facility] Comment on above: Performed By: #### C BCAD, MG, URIC, LIPD, PHOS, CMP, DBIL #### [facility] [address], [place] [id number] Urea nitrogen [Mass/Vol] 17 mg/dL Normal 7-25 [facility] Comment on above: Performed By: #### C BCAD, MG, URIC, LIPD, PHOS, CMP, DBIL #### [facility] [address], [place] [id number] Hemoglobin A1Con 06-01-2021 EAG 139.85 Normal [facility] Comment on above: Performed By: #### A 1C #### [facility] [address] [facility] [place] [id number] HbA1c (Bld) [Mass fraction] 6.5 % High 4.0-6.0 [facility] Comment on above: Performed By: #### A 1C #### [facility] [address] [place], [place] [id number] Lipid Panelon 06-01-2021 Cholesterol [Mass/Vol] 129 mg/dL Normal 125-200 [facility] Comment on above: Result Comment: Low risk < 200mg/dL Borderline risk 201-239 mg/dl High risk > or equal to 240 Performed By: #### C BCAD, MG, URIC, LIPD, PHOS, CMP, DBIL #### [facility] [address] [place], [place] [id number] Cholesterol in HDL [Mass/Vol] 44 mg/dL Normal >40 [facility] Comment on above: Result Comment: High Cardiovascular Risk HDL <40 mg/dL Low Cardiovascular Risk HDL > or equal to 60 mg/dl Performed By: #### C BCAD, MG, URIC, LIPD, PHOS, CMP, DBIL #### [facility] [address] [facility] [place] [id number] Cholesterol in LDL [Mass/Vol] 61 mg/dL Normal [facility] Comment on above: Result Comment: LDL ATP III CLASSIFICATION LDL less than 100 mg/dl Optimal LDL 100-129 mg/dl Near or above optimal LDL 130-159 Borderline high LDL 160-189 High LDL greater than 189 mg/dl Very High Performed By: #### C BCAD, MG, URIC, LIPD, PHOS, CMP, DBIL #### [facility] [address] [id number] Cholesterol in VLDL [Mass/Vol] 24 mg/dL Normal [facility] Comment on above: Performed By: #### C BCAD, MG, URIC, LIPD, PHOS, CMP, DBIL #### [facility] [address] [place], [place] [id number] Cholesterol.total/Ch olesterol in HDL [Mass ratio] 3 {ratio} Normal [facility] Comment on above: Performed By: #### C BCAD, MG, URIC, LIPD, PHOS, CMP, DBIL #### [facility] [address], [place] [id number] Triglyceride [Mass/Vol] 119 mg/dL Normal 30-150 [facility] Comment on above: Result Comment: TRIG ATPIII CLASSIFICATIONS TRIG less than 150 mg/dl Normal TRIG 150-199 mg/dl Borderline High TRIG 200-500 mg/dl High TRIG greather than 500 mg/dl Very High Performed By: #### C BCAD, MG, URIC, LIPD, PHOS, CMP, DBIL #### [facility] [address], [place] [id number] Magnesiumon 06-01-2021 Magnesium [Mass/Vol] 1.8 mg/dL Normal 1.5-2.3 [facility] Comment on above: Performed By: #### C BCAD, MG, URIC, LIPD, PHOS, CMP, DBIL #### [facility] [address], [place] [id number] Phosphoruson 06-01-2021 Phosphate [Mass/Vol] 4.3 mg/dL Normal 2.2-4.4 [facility] Comment on above: Performed By: #### C BCAD, MG, URIC, LIPD, PHOS, CMP, DBIL #### [facility] [address], [place] [id number] Uric Acidon 06-01-2021 URIC 6.1 mg/dL Normal 4.0-8.0 [facility] Comment on above: Result Comment: Refe rence range change 03/03/2017. Prior reference range F 2.4-5.7mg/dL. M 3.4-7.0 mg/dL. Performed By: #### C BCAD, MG, URIC, LIPD, PHOS, CMP, DBIL #### [facility] [address], [place] [id number] Bilirubin, Directon 04-30-19 22 DBIL <0.2 Normal [facility] Comment on above: Result Comment: Refe rence range change 03/03/2017. Prior reference range 0.1-0.3 mg/dL. Performed By: #### C BCAD, MG, URIC, LIPD, PHOS, CMP, DBIL #### [facility] [address], [place] [id number] Complete Blood Count with Au to Diffon 04-30-2021 Basophils (Bld) [#/Vol] 0.07 10*3/uL Normal 0.00-0.20 [facility] Comment on above: Performed By: #### C BCAD, MG, URIC, LIPD, PHOS, CMP, DBIL #### [facility] [address], [place] [id number] Basophils/100 WBC (Bld) 1.1 % Normal [facility] Comment on above: Performed By: #### C BCAD, MG, URIC, LIPD, PHOS, CMP, DBIL #### [facility] [address], [place] [id number] Eosinophils (Bld) [#/Vol] 0.12 10*3/uL Normal 0.02-0.50 [facility] Comment on above: Performed By: #### C BCAD, MG, URIC, LIPD, PHOS, CMP, DBIL #### [facility] [address], [place] [id number] Eosinophils/100 WBC (Bld) 1.8 % Normal [facility] Comment on above: Performed By: #### C BCAD, MG, URIC, LIPD, PHOS, CMP, DBIL #### [facility] [address], [place] [id number] Erythrocyte distribution width (RBC) [Ratio] 14.7 % Normal 11.0-15.0 [facility] Comment on above: Performed By: #### C BCAD, MG, URIC, LIPD, PHOS, CMP, DBIL #### [facility] [address], [place] [id number] Hematocrit (Bld) [Volume fraction] 50.5 % High 38.5-50.0 [facility] Comment on above: Performed By: #### C BCAD, MG, URIC, LIPD, PHOS, CMP, DBIL #### [facility] [address], [place] [id number] Hemoglobin (Bld) [Mass/Vol] 16.4 g/dL Normal 13.0-17.1 [facility] Comment on above: Performed By: #### C BCAD, MG, URIC, LIPD, PHOS, CMP, DBIL #### [facility] [address], [place] [id number] Lymphocytes (Bld) [#/Vol] 1.0 10*3/uL Normal 0.9-3.9 [facility] Comment on above: Performed By: #### C BCAD, MG, URIC, LIPD, PHOS, CMP, DBIL #### [facility] [address], [place] [id number] Lymphocytes/100 WBC (Bld) 14.7 % Normal [facility] Comment on above: Performed By: #### C BCAD, MG, URIC, LIPD, PHOS, CMP, DBIL #### [facility] [address], [place] [id number] MCH (RBC) [Entitic mass] 29.4 pg Normal 27.0-33.0 [facility] Comment on above: Performed By: #### C BCAD, MG, URIC, LIPD, PHOS, CMP, DBIL #### [facility] [address], [place] [id number] MCHC (RBC) [Mass/Vol] 32.5 g/dL Normal 32.0-36.0 [facility] Comment on above: Performed By: #### C BCAD, MG, URIC, LIPD, PHOS, CMP, DBIL #### [facility] [address], [place] [id number] MCV (RBC) [Entitic vol] 91 fL Normal 80-100 [facility] Comment on above: Performed By: #### C BCAD, MG, URIC, LIPD, PHOS, CMP, DBIL #### [facility] [address], [place] [id number] Monocytes (Bld) [#/Vol] 0.7 10*3/uL Normal 0.2-0.9 [facility] Comment on above: Performed By: #### C BCAD, MG, URIC, LIPD, PHOS, CMP, DBIL #### [facility] [address], [place] [id number] Monocytes/100 WBC (Bld) 10.4 % Normal [facility] Comment on above: Performed By: #### C BCAD, MG, URIC, LIPD, PHOS, CMP, DBIL #### [facility] [address], [place] [id number] Neutrophils (Bld) [#/Vol] 4.7 10*3/uL Normal 1.5-7.8 [facility] Comment on above: Performed By: #### C BCAD, MG, URIC, LIPD, PHOS, CMP, DBIL #### [facility] [address], [place] [id number] Neutrophils/100 WBC (Bld) 71.4 % Normal [facility] Comment on above: Performed By: #### C BCAD, MG, URIC, LIPD, PHOS, CMP, DBIL #### [facility] [address], [place] [id number] Platelet mean volume (Bld) [Entitic vol] 10.70 fL Normal 7.50-12.50 [facility] Comment on above: Performed By: #### C BCAD, MG, URIC, LIPD, PHOS, CMP, DBIL #### [facility] [address], [place] [id number] Platelets (Bld) [#/Vol] 261 10*3/uL Normal 140-400 [facility] Comment on above: Performed By: #### C BCAD, MG, URIC, LIPD, PHOS, CMP, DBIL #### [facility] [address], [place] [id number] RBC (Bld) [#/Vol] 5.57 10*6/uL Normal 4.20-5.80 [facility] Comment on above: Performed By: #### C BCAD, MG, URIC, LIPD, PHOS, CMP, DBIL #### [facility] [address], [place] [id number] RDW-SD 49.2 fL Normal 37.0-50.0 [facility] Comment on above: Performed By: #### C BCAD, MG, URIC, LIPD, PHOS, CMP, DBIL #### [facility] [address], [place] [id number] WBC (Bld) [#/Vol] 6.6 10*3/uL Normal 3.8-11.0 [facility] [employer] [facility] Comment on above: Performed By: #### C BCAD, MG, URIC, LIPD, PHOS, CMP, DBIL #### [facility] [address], [place] [id number] Comprehensive Metabolic Pane nitin 04-30-2021 Albumin [Mass/Vol] 4.9 g/dL Normal 3.6-5.1 [facility] [employer] [facility] Comment on above: Performed By: #### C BCAD, MG, URIC, LIPD, PHOS, CMP, DBIL #### [facility] [address], [place] [id number] Albumin/Globulin [Mass ratio] 2.6 {ratio} High 1.0-2.5 [facility] Comment on above: Performed By: #### C BCAD, MG, URIC, LIPD, PHOS, CMP, DBIL #### [facility] [address], [place] [id number] ALP [Catalytic activity/Vol] 89 U/L Normal 40-129 [facility] Comment on above: Performed By: #### C BCAD, MG, URIC, LIPD, PHOS, CMP, DBIL #### [facility] [address], [place] [id number] ALT [Catalytic activity/Vol] 30 U/L Normal 9-46 [facility] Comment on above: Result Comment: 03/17 Female reference range changed. Performed By: #### C BCAD, MG, URIC, LIPD, PHOS, CMP, DBIL #### [facility] [address], [place] [id number] Anion gap [Moles/Vol] 20 mmol/L Normal 12-20 [facility] Comment on above: Result Comment: Effe ctive 04/22/2019 reference range changed. Performed By: #### C BCAD, MG, URIC, LIPD, PHOS, CMP, DBIL #### [facility] [address], [place] [id number] AST [Catalytic activity/Vol] 23 U/L Normal 10-40 [facility] Comment on above: Performed By: #### C BCAD, MG, URIC, LIPD, PHOS, CMP, DBIL #### [facility] [address], [place] [id number] Bilirubin [Mass/Vol] 0.52 mg/dL Normal 0.30-1.20 [facility] Comment on above: Performed By: #### C BCAD, MG, URIC, LIPD, PHOS, CMP, DBIL #### [facility] [address], [place] [id number] BUN/CREA 18 Ratio Normal 6-22 [facility] Comment on above: Performed By: #### C BCAD, MG, URIC, LIPD, PHOS, CMP, DBIL #### [facility] [address], [place] [id number] Calcium [Mass/Vol] 10.1 mg/dL Normal 8.6-10.[address] [facility] Comment on above: Performed By: #### C BCAD, MG, URIC, LIPD, PHOS, CMP, DBIL #### [facility] [address], [place] [id number] Chloride [Moles/Vol] 102 mmol/L Normal 98-107 [facility] Comment on above: Performed By: #### C BCAD, MG, URIC, LIPD, PHOS, CMP, DBIL #### [facility] [address], [place] [id number] CO2 [Moles/Vol] 23 mmol/L Normal 20-31 [facility] Comment on above: Performed By: #### C BCAD, MG, URIC, LIPD, PHOS, CMP, DBIL #### [facility] [address], [place] [id number] Creatinine [Mass/Vol] 1.3 mg/dL Normal 0.7-1.4 [facility] Comment on above: Performed By: #### C BCAD, MG, URIC, LIPD, PHOS, CMP, DBIL #### [facility] [address], [place] [id number] eGFRAA 71 mL/min/1.73m2 Normal >60 [facility] Comment on above: Performed By: #### C BCAD, MG, URIC, LIPD, PHOS, CMP, DBIL #### [facility] [address], [place] [id number] eGFRNAA 59 mL/min/1.73m2 Low >60 [facility] Comment on above: Performed By: #### C BCAD, MG, URIC, LIPD, PHOS, CMP, DBIL #### [facility] [address], [place] [id number] Globulin (S) [Mass/Vol] 1.9 g/dL Normal 1.9-3.7 [facility] Comment on above: Performed By: #### C BCAD, MG, URIC, LIPD, PHOS, CMP, DBIL #### [facility] [address], [place] [id number] Glucose [Mass/Vol] 128 mg/dL High 65-99 [facility] [employer] [facility] Comment on above: Result Comment: For FASTING Glucose --- ADA reference ranges: Normal 65-99 mg/dl Prediabetes 100-125 Diabetes >/= 126 Performed By: #### C BCAD, MG, URIC, LIPD, PHOS, CMP, DBIL #### [facility] [address], [place] [id number] Potassium [Moles/Vol] 4.4 mmol/L Normal 3.5-5.5 [facility] Comment on above: Performed By: #### C BCAD, MG, URIC, LIPD, PHOS, CMP, DBIL #### [facility] [address], [place] [id number] Protein [Mass/Vol] 6.8 g/dL Normal 6.1-8.1 [facility] [facility] Comment on above: Performed By: #### C BCAD, MG, URIC, LIPD, PHOS, CMP, DBIL #### [facility] [address], [place] [id number] Sodium [Moles/Vol] 140 mmol/L Normal 135-[address] [facility] Comment on above: Performed By: #### C BCAD, MG, URIC, LIPD, PHOS, CMP, DBIL #### [facility] [address], [place] [id number] Urea nitrogen [Mass/Vol] 23 mg/dL Normal 7-25 [facility] Comment on above: Performed By: #### C BCAD, MG, URIC, LIPD, PHOS, CMP, DBIL #### [facility] [address], [place] [id number] Lipid Panelon 04-30-2021 Cholesterol [Mass/Vol] 123 mg/dL Low 125-200 [facility] Comment on above: Result Comment: Low risk < 200mg/dL Borderline risk 201-239 mg/dl High risk > or equal to 240 Performed By: #### C BCAD, MG, URIC, LIPD, PHOS, CMP, DBIL #### [facility] [address], [place] [id number] Cholesterol in HDL [Mass/Vol] 41 mg/dL Normal >40 [facility] Comment on above: Result Comment: High Cardiovascular Risk HDL <40 mg/dL Low Cardiovascular Risk HDL > or equal to 60 mg/dl Performed By: #### C BCAD, MG, URIC, LIPD, PHOS, CMP, DBIL #### [facility] [address], [place] [id number] Cholesterol in LDL [Mass/Vol] 51 mg/dL Normal [facility] Comment on above: Result Comment: LDL ATP III CLASSIFICATION LDL less than 100 mg/dl Optimal LDL 100-129 mg/dl Near or above optimal LDL 130-159 Borderline high LDL 160-189 High LDL greater than 189 mg/dl Very High Performed By: #### C BCAD, MG, URIC, LIPD, PHOS, CMP, DBIL #### [facility] [address], [place] [id number] Cholesterol in VLDL [Mass/Vol] 31 mg/dL Normal [facility] Comment on above: Performed By: #### C BCAD, MG, URIC, LIPD, PHOS, CMP, DBIL #### [facility] [address], [place] [id number] Cholesterol.total/Ch olesterol in HDL [Mass ratio] 3 {ratio} Normal [facility] Comment on above: Performed By: #### C BCAD, MG, URIC, LIPD, PHOS, CMP, DBIL #### [facility] [address], [place] [id number] Triglyceride [Mass/Vol] 156 mg/dL High 30-150 [facility] Comment on above: Result Comment: TRIG ATPIII CLASSIFICATIONS TRIG less than 150 mg/dl Normal TRIG 150-199 mg/dl Borderline High TRIG 200-500 mg/dl High TRIG greather than 500 mg/dl Very High Performed By: #### C BCAD, MG, URIC, LIPD, PHOS, CMP, DBIL #### [facility] [address], [place] [id number] Magnesiumon 04-30-2021 Magnesium [Mass/Vol] 2.0 mg/dL Normal 1.5-2.3 [facility] Comment on above: Performed By: #### C BCAD, MG, URIC, LIPD, PHOS, CMP, DBIL #### [facility] [address], [place] [id number] Phosphoruson 04-30-2021 Phosphate [Mass/Vol] 4.2 mg/dL Normal 2.2-4.4 [facility] Comment on above: Performed By: #### C BCAD, MG, URIC, LIPD, PHOS, CMP, DBIL #### [facility] [address], [place] [id number] Uric Acidon 04-30-2021 URIC 5.3 mg/dL Normal 4.0-8.0 [facility] Comment on above: Result Comment: Refe rence range change 03/03/2017. Prior reference range F 2.4-5.7mg/dL. M 3.4-7.0 mg/dL. 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 The device was interrogated it in their office and it appears to be functioning appropriately. Because of all the above he is pleased with his care. He'll be following up henceforth with the [employer] rotor plate washer and we advised him were always happy [...] transplantation History of Pacemaker insertion History of [place] tooth extraction Current Meds Medication NameInstruction Aspirin [...] Vital Signs Recorded: 23Apr2021 05:40PMRecorded: 23Apr2021 03:22PM [id number], RUE, Elgrajf011, RUE, Sitting Wgxxqbqaf55, RUE, Zcfrkqc04, RUE, Sitting Heart Rate61, R Brachial Artery Height5 ft 11 in Czedbh171 lb BMI Vujqljljmu00.57 kg/m2 BSA Calculated2.16 Tobacco Useb) No Fall [...] abdomen non-tender (more content not included)... Normal [facility] Tobacco Screening.on 022 Fall risk assessment c) Not medically indicated [facility] 250 DO Work Phone: Tobacco use status CPHS b) No Scratch [facility] 250 DO Work Phone: Bilirubin, Directon 03-29-20 21 DBIL <0.2 Normal [facility] [employer] [employer] Comment on above: Result Comment: Refe rence range change 03/03/2017. Prior reference range 0.1-0.3 mg/dL. Performed By: #### C BCAD, MG, URIC, LIPD, PHOS, CMP, DBIL #### [facility] [address], [place] [id number] Complete Blood Count with Au to Diffon 03-29-2021 Basophils (Bld) [#/Vol] 0.06 10*3/uL Normal 0.00-0.20 [facility] [employer] Comment on above: Performed By: #### C BCAD, MG, URIC, LIPD, PHOS, CMP, DBIL #### [facility] [address], [place] [id number] Basophils/100 WBC (Bld) 0.7 % Normal [facility] [employer] Comment on above: Performed By: #### C BCAD, MG, URIC, LIPD, PHOS, CMP, DBIL #### [facility] [address], [place] [id number] Eosinophils (Bld) [#/Vol] 0.13 10*3/uL Normal 0.02-0.50 [facility] [employer] Comment on above: Performed By: #### C BCAD, MG, URIC, LIPD, PHOS, CMP, DBIL #### [facility] [address], [place] [id number] Eosinophils/100 WBC (Bld) 1.6 % Normal [facility] Comment on above: Performed By: #### C BCAD, MG, URIC, LIPD, PHOS, CMP, DBIL #### [facility] [address], [place] [id number] Erythrocyte distribution width (RBC) [Ratio] 14.9 % Normal 11.0-15.0 [facility] Comment on above: Performed By: #### C BCAD, MG, URIC, LIPD, PHOS, CMP, DBIL #### [facility] [address], [place] [id number] Hematocrit (Bld) [Volume fraction] 51.2 % High 38.5-50.0 [facility] Comment on above: Performed By: #### C BCAD, MG, URIC, LIPD, PHOS, CMP, DBIL #### [facility] [address], [place] [id number] Hemoglobin (Bld) [Mass/Vol] 16.0 g/dL Normal 13.0-17.1 [facility] Comment on above: Performed By: #### C BCAD, MG, URIC, LIPD, PHOS, CMP, DBIL #### [facility] [address], [place] [id number] Lymphocytes (Bld) [#/Vol] 0.9 10*3/uL Normal 0.9-3.9 [facility] Comment on above: Performed By: #### C BCAD, MG, URIC, LIPD, PHOS, CMP, DBIL #### [facility] [address], [place] [id number] Lymphocytes/100 WBC (Bld) 10.7 % Normal [facility] Comment on above: Performed By: #### C BCAD, MG, URIC, LIPD, PHOS, CMP, DBIL #### [facility] [address], [place] [id number] MCH (RBC) [Entitic mass] 28.9 pg Normal 27.0-33.0 [facility] Comment on above: Performed By: #### C BCAD, MG, URIC, LIPD, PHOS, CMP, DBIL #### [facility] [address], [place] [id number] MCHC (RBC) [Mass/Vol] 31.3 g/dL Low 32.0-36.0 [facility] Comment on above: Performed By: #### C BCAD, MG, URIC, LIPD, PHOS, CMP, DBIL #### [facility] [address], [place] [id number] MCV (RBC) [Entitic vol] 92 fL Normal 80-100 [facility] Comment on above: Performed By: #### C BCAD, MG, URIC, LIPD, PHOS, CMP, DBIL #### [facility] [address], [place] [id number] Monocytes (Bld) [#/Vol] 0.7 10*3/uL Normal 0.2-0.9 [facility] Comment on above: Performed By: #### C BCAD, MG, URIC, LIPD, PHOS, CMP, DBIL #### [facility] [address], [place] [id number] Monocytes/100 WBC (Bld) 8.1 % Normal [facility] Comment on above: Performed By: #### C BCAD, MG, URIC, LIPD, PHOS, CMP, DBIL #### [facility] [address], [place] [id number] Neutrophils (Bld) [#/Vol] 6.4 10*3/uL Normal 1.5-7.8 [facility] [employer] Comment on above: Performed By: #### C BCAD, MG, URIC, LIPD, PHOS, CMP, DBIL #### [facility] [address], [place] [id number] Neutrophils/100 WBC (Bld) 78.5 % Normal [facility] [employer] [employer] Comment on above: Performed By: #### C BCAD, MG, URIC, LIPD, PHOS, CMP, DBIL #### [facility] [address], [place] [id number] Platelet mean volume (Bld) [Entitic vol] 11.20 fL Normal 7.50-12.50 [facility] Siding Mechanic Comment on above: Performed By: #### C BCAD, MG, URIC, LIPD, PHOS, CMP, DBIL #### [facility] [address], [place] [id number] Platelets (Bld) [#/Vol] 295 10*3/uL Normal 140-400 [facility] Comment on above: Performed By: #### C BCAD, MG, URIC, LIPD, PHOS, CMP, DBIL #### [facility] [address], [place] [id number] RBC (Bld) [#/Vol] 5.54 10*6/uL Normal 4.20-5.80 [facility] S[facility] Mechanic Comment on above: Performed By: #### C BCAD, MG, URIC, LIPD, PHOS, CMP, DBIL #### [facility] [address], [place] [id number] RDW-SD 51.0 fL High 37.0-50.0 [facility] Comment on above: Performed By: #### C BCAD, MG, URIC, LIPD, PHOS, CMP, DBIL #### [facility] [address], [place] [id number] WBC (Bld) [#/Vol] 8.2 10*3/uL Normal 3.8-11.0 [facility] [employer] S[employer] Mechanic Comment on above: Performed By: #### C BCAD, MG, URIC, LIPD, PHOS, CMP, DBIL #### [facility] [address], [place] [id number] Comprehensive Metabolic Pane [facility] 03-29-2021 Albumin [Mass/Vol] 4.9 g/dL Normal 3.6-5.1 [facility] [employer] Comment on above: Performed By: #### C BCAD, MG, URIC, LIPD, PHOS, CMP, DBIL #### [facility] [address], [place] [id number] Albumin/Globulin [Mass ratio] 2.5 {ratio} Normal 1.0-2.5 [facility] Comment on above: Performed By: #### C BCAD, MG, URIC, LIPD, PHOS, CMP, DBIL #### [facility] [address], [place] [id number] ALP [Catalytic activity/Vol] 86 U/L Normal 40-129 [facility] Comment on above: Performed By: #### C BCAD, MG, URIC, LIPD, PHOS, CMP, DBIL #### [facility] [address], [place] [id number] ALT [Catalytic activity/Vol] 33 U/L Normal 9-46 [facility] Comment on above: Result Comment: 03/17 Female reference range changed. Performed By: #### C BCAD, MG, URIC, LIPD, PHOS, CMP, DBIL #### [facility] [address], [place] [id number] Anion gap [Moles/Vol] 18 mmol/L Normal 12-20 [facility] Comment on above: Result Comment: Effe ctive 04/22/2019 reference range changed. Performed By: #### C BCAD, MG, URIC, LIPD, PHOS, CMP, DBIL #### [facility] [address], [place] [id number] AST [Catalytic activity/Vol] 27 U/L Normal 10-40 [facility] Comment on above: Performed By: #### C BCAD, MG, URIC, LIPD, PHOS, CMP, DBIL #### [facility] [address], [place] [id number] Bilirubin [Mass/Vol] 0.38 mg/dL Normal 0.30-1.20 [facility] Comment on above: Performed By: #### C BCAD, MG, URIC, LIPD, PHOS, CMP, DBIL #### [facility] [address], [place] [id number] BUN/CREA 12 Ratio Normal 6-22 [facility] Comment on above: Performed By: #### C BCAD, MG, URIC, LIPD, PHOS, CMP, DBIL #### [facility] [address], [place] [id number] Calcium [Mass/Vol] 10.3 mg/dL High 8.6-10.[address] [facility] Comment on above: Performed By: #### C BCAD, MG, URIC, LIPD, PHOS, CMP, DBIL #### [facility] [address], [place] [id number] Chloride [Moles/Vol] 105 mmol/L Normal 98-107 [facility] Comment on above: Performed By: #### C BCAD, MG, URIC, LIPD, PHOS, CMP, DBIL #### [facility] [address], [place] [id number] CO2 [Moles/Vol] 23 mmol/L Normal 20-31 [facility] Comment on above: Performed By: #### C BCAD, MG, URIC, LIPD, PHOS, CMP, DBIL #### [facility] [address], [place] [id number] Creatinine [Mass/Vol] 1.2 mg/dL Normal 0.7-1.4 [facility] Comment on above: Performed By: #### C BCAD, MG, URIC, LIPD, PHOS, CMP, DBIL #### [facility] [address], [place] [id number] eGFRAA 79 mL/min/1.73m2 Normal >60 [facility] Comment on above: Performed By: #### C BCAD, MG, URIC, LIPD, PHOS, CMP, DBIL #### [facility] [address], [place] [id number] eGFRNAA 65 mL/min/1.73m2 Normal >60 [facility] Comment on above: Performed By: #### C BCAD, MG, URIC, LIPD, PHOS, CMP, DBIL #### [facility] [address], [place] [id number] Globulin (S) [Mass/Vol] 2.0 g/dL Normal 1.9-3.7 [facility] Comment on above: Performed By: #### C BCAD, MG, URIC, LIPD, PHOS, CMP, DBIL #### [facility] [address], [place] [id number] Glucose [Mass/Vol] 125 mg/dL High 65-[address] [facility] Comment on above: Result Comment: For FASTING Glucose --- ADA reference ranges: Normal 65-99 mg/dl Prediabetes 100-125 Diabetes >/= 126 Performed By: #### C BCAD, MG, URIC, LIPD, PHOS, CMP, DBIL #### [facility] [address], [place] [id number] Potassium [Moles/Vol] 4.7 mmol/L Normal 3.5-5.5 [facility] Comment on above: Performed By: #### C BCAD, MG, URIC, LIPD, PHOS, CMP, DBIL #### [facility] [address], [place] [id number] Protein [Mass/Vol] 6.9 g/dL Normal 6.1-8.1 Beattieria godwin [employer]ic Comment on above: Performed By: #### C BCAD, MG, URIC, LIPD, PHOS, CMP, DBIL #### [facility] [address], [place] [id number] Sodium [Moles/Vol] 141 mmol/L Normal 135-146 [facility] Siding Mechanic Comment on above: Performed By: #### C BCAD, MG, URIC, LIPD, PHOS, CMP, DBIL #### [facility] [address], [place] [id number] Urea nitrogen [Mass/Vol] 14 mg/dL Normal 7-25 [facility] Comment on above: Performed By: #### C BCAD, MG, URIC, LIPD, PHOS, CMP, DBIL #### [facility] [address], [place] [id number] Lipid Panelon 03-29-2021 Cholesterol [Mass/Vol] 123 mg/dL Low 125-200 [facility] Comment on above: Result Comment: Low risk < 200mg/dL Borderline risk 201-239 mg/dl High risk > or equal to 240 Performed By: #### C BCAD, MG, URIC, LIPD, PHOS, CMP, DBIL #### [facility] [address], [place] [id number] Cholesterol in HDL [Mass/Vol] 42 mg/dL Normal >40 [facility] Comment on above: Result Comment: High Cardiovascular Risk HDL <40 mg/dL Low Cardiovascular Risk HDL > or equal to 60 mg/dl Performed By: #### C BCAD, MG, URIC, LIPD, PHOS, CMP, DBIL #### [facility] [address], [place] [id number] Cholesterol in LDL [Mass/Vol] 58 mg/dL Normal [facility] Comment on above: Result Comment: LDL ATP III CLASSIFICATION LDL less than 100 mg/dl Optimal LDL 100-129 mg/dl Near or above optimal LDL 130-159 Borderline high LDL 160-189 High LDL greater than 189 mg/dl Very High Performed By: #### C BCAD, MG, URIC, LIPD, PHOS, CMP, DBIL #### [facility] [address] [facility] [place] [id number] Cholesterol in VLDL [Mass/Vol] 23 mg/dL Normal [facility] Comment on above: Performed By: #### C BCAD, MG, URIC, LIPD, PHOS, CMP, DBIL #### [facility] [address], [place] [id number] Cholesterol.total/Ch olesterol in HDL [Mass ratio] 3 {ratio} Normal [facility] [employer] Comment on above: Performed By: #### C BCAD, MG, URIC, LIPD, PHOS, CMP, DBIL #### [facility] [address], [place] [id number] Triglyceride [Mass/Vol] 113 mg/dL Normal 30-150 [facility] Comment on above: Result Comment: TRIG ATPIII CLASSIFICATIONS TRIG less than 150 mg/dl Normal TRIG 150-199 mg/dl Borderline High TRIG 200-500 mg/dl High TRIG greather than 500 mg/dl Very High Performed By: #### C BCAD, MG, URIC, LIPD, PHOS, CMP, DBIL #### [facility] [address] [facility] [place] [id number] Magnesiumon 03-29-2021 Magnesium [Mass/Vol] 1.9 mg/dL Normal 1.5-2.3 [facility] Comment on above: Performed By: #### C BCAD, MG, URIC, LIPD, PHOS, CMP, DBIL #### [facility] [address] [facility] [place] [id number] Phosphoruson 03-29-2021 Phosphate [Mass/Vol] 4.1 mg/dL Normal 2.2-4.4 [facility] Siding Mechanic Comment on above: Performed By: #### C BCAD, MG, URIC, LIPD, PHOS, CMP, DBIL #### [facility] [address] [place] [id number] Uric Acidon 03-29-2021 URIC 7.5 mg/dL Normal 4.0-8.0 [facility] Comment on above: Result Comment: Refe rence range change 03/03/2017. Prior reference range F 2.4-5.7mg/dL. M 3.4-7.0 mg/dL. Performed By: #### C BCAD, MG, URIC, LIPD, PHOS, CMP, DBIL #### [facility] [address], [place] [id number] [facility] CHEST 2 VWSon 12-24-2020 [facility] CHEST 2 [facility] Department of Radiology [address] [place] [id number] ===== Patient Name: VISHAL DUKE : 1960 Sex: M Age: Race: White Pt. Location: [facility] Patient Status: D Ordered Date: 12/24/2020 3:50:00 PM Completed Date: 12/24/2020 03:48 PM Requesting Provider: ZULY VERDUZCO Attending Provider: Report Copy To: Signs & Symptoms: U07.1 COVID-19 I10 History: [place] Comments: covid Exam: [facility] CHEST 2 [facility] ===== [facility] CHEST 2 VWS 12/24/2020 3:48 PM [...] process. Electronically signed: Giovana Garrido. Transcribed by: [email or web address], User Resident: Electronically Signed by: GIOVANA GARRIDO @ 12/25/2020 12:24 PM Normal [facility] Comment on above: Order Comment: No: D o not add to previous draw CV'D BY [facility] AT 1240 Glucose Poct Glucometerson 0 12-12-2020 Commemt1 Glu2: Cleaned Meter Normal [facility] Comment on above: Result Comment: PERF ORMED BY: [place] [address] PATHOLOGIST PACKAGING MANAGER SHYANN OLIVIER M.D. Performed By: #### B MP, HS TROP, CBC, PT, PTT, BNP #### [facility] [address] [place] [address] Glucose [Mass/Vol] 147 mg/dL Normal [facility] Comment on above: Result Comment: [place] Glucose Reference Range is dependent on time and content of last meal. Glucose of more than 200 mg/dL in a nonstressed, ambulatory subject supports the diagnosis of Diabetes Mellitus. Performed By: #### B MP, HS TROP, CBC, PT, PTT, BNP #### [facility] [address] [place] [address] [place] Glucose [Mass/Vol] 107 mg/dL Normal [facility] Comment on above: Result Comment: [place] om Glucose Reference Range is dependent on time and content of last meal. Glucose of more than 200 mg/dL in a nonstressed, ambulatory subject supports the diagnosis of Diabetes Mellitus. PERFORMED BY: [place] [address] PATHOLOGIST PACKAGING MANAGER SHYANN OLIVIER M.D. Performed By: #### B MP, HS TROP, CBC, PT, PTT, BNP #### [address] XR chest 2V*on 12-12-2020 XR chest 2V* [facility] Main [place] [address] [place] [address] XRay Report Signed Patient: Vishal Duke MR#: [id number] : 1960 Acct:[id number] Age/Sex: 59 / M ADM Date: 12/08/20 Loc: Room: [address] [place] [address] Type: ADM IN Attending Dr: Leonardo Storey [...] Farah Jr., M.D.12/12/2020 9:15 AM Dictation Location: [place] [address] Transcribed By: [facility] 12/12/20914 Dictated By: Faraz Farah Jr, MD 12/12/20908 Signed By: 12/12/20914 [facility] Basic Metabolic Panelon 11-16 Calcium [Mass/Vol] 8.9 mg/dL Normal 8.2-10.2 [facility] Comment on above: Performed By: #### B MP, HS TROP, CBC, PT, PTT, BNP #### [address] Chloride [Moles/Vol] 105 mmol/L Normal 95-114 [facility] Comment on above: Performed By: #### B MP, HS TROP, CBC, PT, PTT, BNP #### [address] CO2 [Moles/Vol] 22.1 mmol/L Normal 22.0-30.0 [facility] Comment on above: Performed By: #### B MP, HS TROP, CBC, PT, PTT, BNP #### [address] Creatinine [Mass/Vol] 1.08 mg/dL Normal 0.64-1.27 [facility] Comment on above: Performed By: #### B MP, HS TROP, CBC, PT, PTT, BNP #### [address] Creatinine Clr Calc Pharmacy 78.44 [facility] Comment on above: Result Comment: PERF ORMED BY: [place] [address] PATHOLOGIST PACKAGING MANAGER SHYANN OLIVIER M.D. Performed By: #### B MP, HS TROP, CBC, PT, PTT, BNP #### [address] Estimated GFR ( Nata > 60 [facility] Comment on above: Result Comment: GFR estimated reference range: According to KDOQI guidelines, <60 ml/min/1.73m2 is sufficient to diagnose a patient with chronic kidney disease. Performed By: #### B MP, HS TROP, CBC, PT, PTT, BNP #### [address] Estimated GFR (Non- Am > 60 [facility] Comment on above: Performed By: #### B MP, HS TROP, CBC, PT, PTT, BNP #### [facility] [address] Glucose [Mass/Vol] 138 mg/dL High 70-100 [facility] Comment on above: Result Comment: [place] Glucose Reference Range is dependent on time and content of last meal. Glucose of more than 200 mg/dL in a nonstressed, ambulatory subject supports the diagnosis of Diabetes Mellitus. ADA recommended reference range Performed By: #### B MP, HS TROP, CBC, PT, PTT, BNP #### [facility] [address] Potassium [Moles/Vol] 4.2 mmol/L Normal 3.5-5.1 [facility] Comment on above: Performed By: #### B MP, HS TROP, CBC, PT, PTT, BNP #### [address] Sodium [Moles/Vol] 138 mmol/L Normal 136-146 [facility] Comment on above: Performed By: #### B MP, HS TROP, CBC, PT, PTT, BNP #### [address] Urea nitrogen [Mass/Vol] 11 mg/dL Normal 9-23 [facility] Comment on above: Performed By: #### B MP, HS TROP, CBC, PT, PTT, BNP #### [address] Complete Blood Count Auto Di ffon 12-11-2020 Basophils (Bld) [#/Vol] 0.1 10*3/uL Normal 0.0-0.2 [facility] Comment on above: Result Comment: PERF ORMED BY: [place] [address] PATHOLOGIST PACKAGING MANAGER SHYANN OLIVIER M.D. Performed By: #### B MP, HS TROP, CBC, PT, PTT, BNP #### [place] [address] [place] Basophils/100 WBC (Bld) 0.7 % Normal . [facility] Comment on above: Performed By: #### B MP, HS TROP, CBC, PT, PTT, BNP #### [address] Eosinophils (Bld) [#/Vol] 0.1 10*3/uL Normal 0.0-0.45 [facility] Comment on above: Performed By: #### B MP, HS TROP, CBC, PT, PTT, BNP #### [address] Eosinophils/100 WBC (Bld) 1.3 % Normal . [facility] Comment on above: Performed By: #### B MP, HS TROP, CBC, PT, PTT, BNP #### [address] Erythrocyte distribution width (RBC) [Ratio] 15.2 % High 12.0-14.8 [facility] Comment on above: Performed By: #### B MP, HS TROP, CBC, PT, PTT, BNP #### [address] Hematocrit (Bld) [Volume fraction] 38.0 % Low 38.8-50.0 [facility] Comment on above: Performed By: #### B MP, HS TROP, CBC, PT, PTT, BNP #### [address] Hemoglobin (Bld) [Mass/Vol] 13.0 g/dL Normal 13.0-17.0 [facility] Comment on above: Performed By: #### B MP, HS TROP, CBC, PT, PTT, BNP #### [address] Lymphocytes (Bld) [#/Vol] 0.7 10*3/uL Low 1.00-4.8 [facility] Comment on above: Performed By: #### B MP, HS TROP, CBC, PT, PTT, BNP #### [address] Lymphocytes/100 WBC (Bld) 7.7 % Normal . [facility] Comment on above: Performed By: #### B MP, HS TROP, CBC, PT, PTT, BNP #### [address] MCH (RBC) [Entitic mass] 31.5 pg Normal 27.5-35.2 [facility] Comment on above: Performed By: #### B MP, HS TROP, CBC, PT, PTT, BNP #### [address] MCV (RBC) [Entitic vol] 91.7 fL Normal 83.5-101 [facility] Comment on above: Performed By: #### B MP, HS TROP, CBC, PT, PTT, BNP #### [address] Mean Corpuscular HGB Conc 34.3 g/dL Normal 32.5-35.6 [facility] Comment on above: Performed By: #### B MP, HS TROP, CBC, PT, PTT, BNP #### [address] Monocytes (Bld) [#/Vol] 0.9 10*3/uL High 0.0-0.8 [facility] Comment on above: Performed By: #### B MP, HS TROP, CBC, PT, PTT, BNP #### [address] Monocytes/100 WBC (Bld) 9.4 % Normal . [facility] Comment on above: Performed By: #### B MP, HS TROP, CBC, PT, PTT, BNP #### [address] Neutrophils (Bld) [#/Vol] 7.5 10*3/uL Normal 1.8-7.7 [facility] Comment on above: Performed By: #### B MP, HS TROP, CBC, PT, PTT, BNP #### [address] Neutrophils/100 WBC (Bld) 80.9 % Normal . [facility] Comment on above: Performed By: #### B MP, HS TROP, CBC, PT, PTT, BNP #### [address] Nucleated RBC/100 WBC (Bld) [Ratio] 0.0 % Normal 0-0.5 [facility] Comment on above: Performed By: #### B MP, HS TROP, CBC, PT, PTT, BNP #### [address] Platelet mean volume (Bld) [Entitic vol] 7.6 fL Normal 6.6-10.1 [facility] Comment on above: Performed By: #### B MP, HS TROP, CBC, PT, PTT, BNP #### [address] Platelets (Bld) [#/Vol] 385 10*3/uL Normal 150-450 [facility] Comment on above: Performed By: #### B MP, HS TROP, CBC, PT, PTT, BNP #### [address] RBC (Bld) [#/Vol] 4.14 10*6/uL Normal 3.90-5.60 [facility] Comment on above: Performed By: #### B MP, HS TROP, CBC, PT, PTT, BNP #### [address] WBC (Bld) [#/Vol] 9.3 10*3/uL Normal 4.5-11.0 [facility] Comment on above: Performed By: #### B MP, HS TROP, CBC, PT, PTT, BNP #### [address] Glucose Poct Glucometerson 0 12-11-2020 Glucose [Mass/Vol] 129 mg/dL Normal [facility] Comment on above: Result Comment: [place] Glucose Reference Range is dependent on time and content of last meal. Glucose of more than 200 mg/dL in a nonstressed, ambulatory subject supports the diagnosis of Diabetes Mellitus. PERFORMED BY: [place] [id number] PATHOLOGIST PACKAGING MANAGER SHYANN OLIVIER M.D. Performed By: #### B MP, HS TROP, CBC, PT, PTT, BNP #### [address] [address] [facility] Partial Thromboplastin Timeo n 12-11-2020 aPTT Coag (Bld) [Time] 32.7 s Normal 25.1-36.5 [facility] Comment on above: Result Comment: PERF ORMED BY: [place] [address] PATHOLOGIST PACKAGING MANAGER SHYANN OLIVIER M.D. Performed By: #### B MP, HS TROP, CBC, PT, PTT, BNP #### [address] [address] [facility] Prothrombin Time INRon 12-11 INR Coag (PPP) [Relative time] 1.2 {INR} Normal [facility] Comment on above: Result Comment: INR [...] HS TROP, CBC, PT, PTT, BNP #### [address] [address] [place] PT Coag (PPP) [Time] 13.8 s High 9.0-12.9 [facility] Comment on above: Performed By: #### B MP, HS TROP, CBC, PT, PTT, BNP #### [address] [address] [place] XR chest 1V portableon 12-11 XR chest 1V portable [facility] Main [place] [address] [place] [address] XRay Report Signed Patient: Vishal Duke MR#: [id number] : 1960 Acct:[id number] Age/Sex: 59 / M ADM Date: 12/08/20 Loc: Room: [address] [place] [address] Type: ADM IN Attending Dr: Leonardo Storey [...] Biju Ag M.D.12/11/2020 12:40 PM Dictation Location: [place] [address] Transcribed By: [facility] 12/11/20 1240 Dictated By: Biju Ag MD 12/11/20 1236 Signed By: 12/11/20 1240 Normal [facility] Complete Blood Count Auto Di ffon 12-10-2020 Basophils (Bld) [#/Vol] 0.0 10*3/uL Normal 0.0-0.2 [facility] Comment on above: Result Comment: PERF ORMED BY: [place] [address] PATHOLOGIST PACKAGING MANAGER SHYANN OLIVIER M.D. Performed By: #### B MP, HS TROP, CBC, PT, PTT, BNP #### [facility] [address] [place] [address] Basophils/100 WBC (Bld) 0.3 % Normal . [facility] Comment on above: Performed By: #### B MP, HS TROP, CBC, PT, PTT, BNP #### [address] Eosinophils (Bld) [#/Vol] 0.1 10*3/uL Normal 0.0-0.45 [facility] Comment on above: Performed By: #### B MP, HS TROP, CBC, PT, PTT, BNP #### [address] Eosinophils/100 WBC (Bld) 0.5 % Normal . [facility] Comment on above: Performed By: #### B MP, HS TROP, CBC, PT, PTT, BNP #### [address] Erythrocyte distribution width (RBC) [Ratio] 15.1 % High 12.0-14.8 [facility] Comment on above: Performed By: #### B MP, HS TROP, CBC, PT, PTT, BNP #### [address] Hematocrit (Bld) [Volume fraction] 39.5 % Normal 38.8-50.0 [facility] Comment on above: Performed By: #### B MP, HS TROP, CBC, PT, PTT, BNP #### [address] Hemoglobin (Bld) [Mass/Vol] 13.1 g/dL Normal 13.0-17.0 [facility] Comment on above: Performed By: #### B MP, HS TROP, CBC, PT, PTT, BNP #### [address] Lymphocytes (Bld) [#/Vol] 0.5 10*3/uL Low 1.00-4.8 [facility] Comment on above: Performed By: #### B MP, HS TROP, CBC, PT, PTT, BNP #### [address] Lymphocytes/100 WBC (Bld) 4.0 % Normal . [facility] Comment on above: Performed By: #### B MP, HS TROP, CBC, PT, PTT, BNP #### [address] [place] [address] [place] MCH (RBC) [Entitic mass] 31.2 pg Normal 27.5-35.2 [facility] Comment on above: Performed By: #### B MP, HS TROP, CBC, PT, PTT, BNP #### [address] MCV (RBC) [Entitic vol] 94.1 fL Normal 83.5-101 [facility] Comment on above: Performed By: #### B MP, HS TROP, CBC, PT, PTT, BNP #### [address] Mean Corpuscular HGB Conc 33.2 g/dL Normal 32.5-35.6 [facility] Comment on above: Performed By: #### B MP, HS TROP, CBC, PT, PTT, BNP #### [address] Monocytes (Bld) [#/Vol] 0.8 10*3/uL Normal 0.0-0.8 [facility] Comment on above: Performed By: #### B MP, HS TROP, CBC, PT, PTT, BNP #### [address] Monocytes/100 WBC (Bld) 6.6 % Normal . [facility] Comment on above: Performed By: #### B MP, HS TROP, CBC, PT, PTT, BNP #### [address] Neutrophils (Bld) [#/Vol] 10.5 10*3/uL High 1.8-7.7 [facility] Comment on above: Performed By: #### B MP, HS TROP, CBC, PT, PTT, BNP #### [address] Neutrophils/100 WBC (Bld) 88.6 % Normal . [facility] Comment on above: Performed By: #### B MP, HS TROP, CBC, PT, PTT, BNP #### [place] [address] [place] Nucleated RBC/100 WBC (Bld) [Ratio] 0.1 % Normal 0-0.5 [facility] Comment on above: Performed By: #### B MP, HS TROP, CBC, PT, PTT, BNP #### [address] Platelet mean volume (Bld) [Entitic vol] 8.1 fL Normal 6.6-10.1 [facility] Comment on above: Performed By: #### B MP, HS TROP, CBC, PT, PTT, BNP #### [address] Platelets (Bld) [#/Vol] 403 10*3/uL Normal 150-450 [facility] Comment on above: Performed By: #### B MP, HS TROP, CBC, PT, PTT, BNP #### [address] RBC (Bld) [#/Vol] 4.20 10*6/uL Normal 3.90-5.60 [facility] Comment on above: Performed By: #### B MP, HS TROP, CBC, PT, PTT, BNP #### [address] WBC (Bld) [#/Vol] 11.9 10*3/uL High 4.5-11.0 [facility] Comment on above: Performed By: #### B MP, HS TROP, CBC, PT, PTT, BNP #### [address] Comprehensive Metabolic Pane nitin 12-10-2020 Albumin [Mass/Vol] 3.1 g/dL Low 3.2-5.5 [facility] Comment on above: Result Comment: --- 12/10/20 1241 --- Alb previously reported as: 2.8 L gm/dL Performed By: #### B MP, HS TROP, CBC, PT, PTT, BNP #### [address] Albumin/Globulin [Mass ratio] 0.9 {ratio} Normal [facility] Comment on above: Result Comment: --- 12/10/201240 --- A/G Ratio previously reported as: 0.8 Performed By: #### B MP, HS TROP, CBC, PT, PTT, BNP #### [address] ALP [Catalytic activity/Vol] 98 U/L High 32-92 [facility] Comment on above: Result Comment: --- 12/10/201241 --- Alk Phos previously reported as: 91 U/L Performed By: #### B MP, HS TROP, CBC, PT, PTT, BNP #### [address] ALT [Catalytic activity/Vol] 123 U/L High 10-60 [facility] Comment on above: Result Comment: --- 12/10/201241 --- ALT previously reported as: 116 H U/L Performed By: #### B MP, HS TROP, CBC, PT, PTT, BNP #### [address] AST [Catalytic activity/Vol] 91 U/L High 10-42 [facility] Comment on above: Result Comment: --- 12/10/201241 --- AST previously reported as: 82 H U/L Performed By: #### B MP, HS TROP, CBC, PT, PTT, BNP #### [address] Bilirubin [Mass/Vol] 0.7 mg/dL Normal 0.3-1.2 [facility] Comment on above: Result Comment: --- 12/10/201240 --- TOTAL BILI previously reported as: 0.9 mg/dL Performed By: #### B MP, HS TROP, CBC, PT, PTT, BNP #### [address] Calcium [Mass/Vol] 9.0 mg/dL Normal 8.2-10.2 [facility] Comment on above: Result Comment: --- 12/10/201240 --- CA previously reported as: 8.2 mg/dL Performed By: #### B MP, HS TROP, CBC, PT, PTT, BNP #### [facility] [address] [place] [address] Chloride [Moles/Vol] 99 mmol/L Normal 95-114 [facility] Comment on above: Result Comment: --- 12/10/201240 --- CL previously reported as: 97 mmol/L Performed By: #### B MP, HS TROP, CBC, PT, PTT, BNP #### [address] CO2 [Moles/Vol] 20.4 mmol/L Low 22.0-30.0 [facility] Comment on above: Result Comment: --- 12/10/201240 --- CO2 previously reported as: 21.7 L mmol/L Performed By: #### B MP, HS TROP, CBC, PT, PTT, BNP #### [address] Creatinine [Mass/Vol] 1.09 mg/dL Normal 0.64-1.27 [facility] Comment on above: Result Comment: --- 12/10/201239 --- Creat previously reported as: 1.01 mg/dL Performed By: #### B MP, HS TROP, CBC, PT, PTT, BNP #### [address] Creatinine Clr Calc Pharmacy 77.72 Normal [facility] Comment on above: Result Comment: --- 12/10/201239 --- Creat Calc PHA previously reported as: 83.87 PERFORMED BY: [place] [address] PATHOLOGIST PACKAGING MANAGER SHYANN OLIVIER M.D. Performed By: #### B MP, HS TROP, CBC, PT, PTT, BNP #### [address] Estimated GFR ( Nata > 60 Normal [facility] Comment on above: Result Comment: --- 12/10/201226 --- GFReAA previously reported as: > 60 mL/Min GFR estimated reference range: According to KDOQI guidelines, <60 ml/min/1.73m2 is sufficient to diagnose a patient with chronic kidney disease. Performed By: #### B MP, HS TROP, CBC, PT, PTT, BNP #### [facility] [address] Estimated GFR (Non- Am > 60 Normal [facility] Comment on above: Result Comment: --- 12/10/201226 --- GFRe previously reported as: > 60 mL/Min Performed By: #### B MP, HS TROP, CBC, PT, PTT, BNP #### [facility] [address] Globulin (S) [Mass/Vol] 3.3 g/dL [facility] Comment on above: Result Comment: --- 12/10/20 1227 --- Glob previously reported as: 3.3 gm/dL Performed By: #### B MP, HS TROP, CBC, PT, PTT, BNP #### [address] Glucose [Mass/Vol] 160 mg/dL High 70-100 [facility] Comment on above: Result Comment: Resu [...] HS TROP, CBC, PT, PTT, BNP #### [address] Potassium [Moles/Vol] 4.1 mmol/L Normal 3.5-5.1 [facility] Comment on above: Result Comment: --- 12/10/20 1241 --- K previously reported as: 3.8 mmol/L Performed By: #### B MP, HS TROP, CBC, PT, PTT, BNP #### [facility] [address] Protein [Mass/Vol] 6.4 g/dL Normal 6.1-7.9 [facility] Comment on above: Result Comment: --- 12/10/20 1241 --- TP previously reported as: 6.1 gm/dL Performed By: #### B MP, HS TROP, CBC, PT, PTT, BNP #### [facility] [address] Sodium [Moles/Vol] 134 mmol/L Low 136-146 [facility] Comment on above: Result Comment: --- 12/10/20 1241 --- NA previously reported as: 128 # L mmol/L Performed By: #### B MP, HS TROP, CBC, PT, PTT, BNP #### [address] Urea nitrogen [Mass/Vol] 10 mg/dL Normal 9-23 [facility] Comment on above: Result Comment: --- 12/10/20 1239 --- BUN previously reported as: 10 mg/dL Performed By: #### B MP, HS TROP, CBC, PT, PTT, BNP #### [address] ECG 12 lead ECGon 12-10-2020 ECG 12 lead ECG [facility] Main [place] [address] [place] [address] Electrocardiograph Report Signed Patient: Vishal Duke MR#: [id number] : 1960 Acct:[id number] Age/Sex: 59 / M ADM Date: 12/08/20 Loc: Room: [address] [place] [address] Type: ADM IN Attending Dr: Leonardo Storey [...] in Lateral leads Confirmed by DAT [facility]ANK [facility], KADEN ([id number]) on 12/10/2020 9:00:58 AM Referred By: Electronically Signed By:KADEN DAUGHERTY MD [facility] Transcribed By: MUS Dictated By: Kaden Daugherty MD, [facility] 12/10/20 0652 Signed By: 12/10/20 0901 Normal [facility] echo transthoracicon [facility] echo transthoracic [facility] Main [place] [address] [place] [address] Echocardiogram Signed Patient: Vishal Duke MR#: [id number] : 1960 Acct:[id number] Age/Sex: 59 / M ADM Date: 12/08/20 Loc: Room: [address] [place] [address] Type: ADM IN Attending Dr: Leonardo Storey MD Ordering Provider: Leonardo Storey MD Date of Service: 12/09/20 [facility] echo transthoracic: torsades de pointes Copies to: [...] DO 12/10/20 0816 Signed By: 12/10/20 1150 [facility] Glucose Poct Glucometerson 0 12-10-2020 Glucose [Mass/Vol] 157 mg/dL [facility] Comment on above: Result Comment: [facility] Glucose Reference Range is dependent on time and content of last meal. Glucose of more than 200 mg/dL in a nonstressed, ambulatory subject supports the diagnosis of Diabetes Mellitus. PERFORMED BY: [place] [address] PATHOLOGIST PACKAGING MANAGER SHYANN OLIVIER M.D. Performed By: #### B MP, HS TROP, CBC, PT, PTT, BNP #### [address] Commemt1 Glu2: Cleaned M[facility] Comment on above: Result Comment: PERF ORMED BY: [facility] [address] [place] [address] PATHOLOGIST PACKAGING MANAGER SHYANN OLIVIER M.D. Performed By: #### B MP, HS TROP, CBC, PT, PTT, BNP #### [facility] [address] [place] [address] [place] Glucose [Mass/Vol] 122 mg/dL Normal [facility] Comment on above: Result Comment: [place] om Glucose Reference Range is dependent on time and content of last meal. Glucose of more than 200 mg/dL in a nonstressed, ambulatory subject supports the diagnosis of Diabetes Mellitus. Performed By: #### B MP, HS TROP, CBC, PT, PTT, BNP #### [address] [address] [facility] Glucose [Mass/Vol] 179 mg/dL Normal [facility] Comment on above: Result Comment: [place] om Glucose Reference Range is dependent on time and content of last meal. Glucose of more than 200 mg/dL in a nonstressed, ambulatory subject supports the diagnosis of Diabetes Mellitus. PERFORMED BY: [address] [address] PATHOLOGIST PACKAGING MANAGER SHYANN OLIVIER M.D. Performed By: #### B MP, HS TROP, CBC, PT, PTT, BNP #### [address] [address] [place] Troponin I High Sensitivityo n 12-10-2020 Troponin I High Sensitivity 9777 pg/mL Off scale high 0-20 [facility] Comment on above: Result Comment: PERF ORMED BY: [facility] [address] [place] [address] PATHOLOGIST PACKAGING MANAGER SHYANN OLIVIER M.D. Performed By: #### B MP, HS TROP, CBC, PT, PTT, BNP #### [address] [address] [place] XR chest 1V portableon 12-10 XR chest 1V portable [facility] Main [place] [address] [place] [address] XRay Report Signed Patient: Vishal Duke MR#: [id number] : 1960 Acct:[id number] Age/Sex: 59 / M ADM Date: 12/08/20 Loc: Room: [address] [place] [address] Type: ADM IN Attending Dr: Leonardo Storey [...] Ajith Saleh M.D.12/10/2020 8:05 AM Dictation Location: [place] [address] Transcribed By: [facility] 12/10/20804 Dictated By: Ajith Saleh II, MD 12/10/20802 Signed By: 12/10/20804 Normal [facility] Basic Metabolic Panelon 08 Calcium [Mass/Vol] 9.6 mg/dL Normal 8.2-10.2 [facility] Comment on above: Performed By: #### B MP, HS TROP, CBC, PT, PTT, BNP #### [facility] [address] [place] [id number] [facility] Chloride [Moles/Vol] 101 mmol/L Normal 95-114 [facility] Comment on above: Performed By: #### B MP, HS TROP, CBC, PT, PTT, BNP #### [facility] [address] [place] [address] CO2 [Moles/Vol] 23.3 mmol/L Normal 22.0-30.0 [facility] Comment on above: Performed By: #### B MP, HS TROP, CBC, PT, PTT, BNP #### [facility] [address] Creatinine [Mass/Vol] 0.97 mg/dL Normal 0.64-1.27 [facility] Comment on above: Performed By: #### B MP, HS TROP, CBC, PT, PTT, BNP #### [address] Creatinine Clr Calc Pharmacy 87.33 [facility] Comment on above: Result Comment: PERF ORMED BY: [place] [address] PATHOLOGIST PACKAGING MANAGER SHYANN OLIVIER M.D. Performed By: #### B MP, HS TROP, CBC, PT, PTT, BNP #### [address] Estimated GFR ( Nata > 60 [facility] Comment on above: Result Comment: GFR estimated reference range: According to KDOQI guidelines, <60 ml/min/1.73m2 is sufficient to diagnose a patient with chronic kidney disease. Performed By: #### B MP, HS TROP, CBC, PT, PTT, BNP #### [address] Estimated GFR (Non- Am > 60 [facility] Comment on above: Performed By: #### B MP, HS TROP, CBC, PT, PTT, BNP #### [address] Glucose [Mass/Vol] 128 mg/dL High 70-100 [facility] Comment on above: Result Comment: [place] om Glucose Reference Range is dependent on time and content of last meal. Glucose of more than 200 mg/dL in a nonstressed, ambulatory subject supports the diagnosis of Diabetes Mellitus. ADA recommended reference range Performed By: #### B MP, HS TROP, CBC, PT, PTT, BNP #### [address] Potassium [Moles/Vol] 4.2 mmol/L Normal 3.5-5.1 [facility] Comment on above: Performed By: #### B MP, HS TROP, CBC, PT, PTT, BNP #### [address] Sodium [Moles/Vol] 139 mmol/L Normal 136-146 [facility] Comment on above: Performed By: #### B MP, HS TROP, CBC, PT, PTT, BNP #### [address] Urea nitrogen [Mass/Vol] 15 mg/dL Normal 9-23 [facility] Comment on above: Performed By: #### B MP, HS TROP, CBC, PT, PTT, BNP #### [address] Complete Blood Count Auto Di ffon 12-09-2020 Basophils (Bld) [#/Vol] 0.1 10*3/uL Normal 0.0-0.2 [facility] Comment on above: Result Comment: PERF ORMED BY: [place] [address] PATHOLOGIST PACKAGING MANAGER SHYANN OLIVIER M.D. Performed By: #### B MP, HS TROP, CBC, PT, PTT, BNP #### [address] Basophils/100 WBC (Bld) 1.0 % Normal . [facility] Comment on above: Performed By: #### B MP, HS TROP, CBC, PT, PTT, BNP #### [place] [address] [place] Eosinophils (Bld) [#/Vol] 0.2 10*3/uL Normal 0.0-0.45 [facility] Comment on above: Performed By: #### B MP, HS TROP, CBC, PT, PTT, BNP #### [place] [address] [place] Eosinophils/100 WBC (Bld) 2.8 % Normal . [facility] Comment on above: Performed By: #### B MP, HS TROP, CBC, PT, PTT, BNP #### [address] Erythrocyte distribution width (RBC) [Ratio] 15.0 % High 12.0-14.8 [facility] Comment on above: Performed By: #### B MP, HS TROP, CBC, PT, PTT, BNP #### [address] Hematocrit (Bld) [Volume fraction] 41.9 % Normal 38.8-50.0 [facility] Comment on above: Performed By: #### B MP, HS TROP, CBC, PT, PTT, BNP #### [address] Hemoglobin (Bld) [Mass/Vol] 14.2 g/dL Normal 13.0-17.0 [facility] Comment on above: Performed By: #### B MP, HS TROP, CBC, PT, PTT, BNP #### [address] Lymphocytes (Bld) [#/Vol] 1.1 10*3/uL Normal 1.00-4.8 [facility] Comment on above: Performed By: #### B MP, HS TROP, CBC, PT, PTT, BNP #### [address] Lymphocytes/100 WBC (Bld) 13.9 % Normal . [facility] Comment on above: Performed By: #### B MP, HS TROP, CBC, PT, PTT, BNP #### [address] MCH (RBC) [Entitic mass] 31.4 pg Normal 27.5-35.2 [facility] Comment on above: Performed By: #### B MP, HS TROP, CBC, PT, PTT, BNP #### [address] MCV (RBC) [Entitic vol] 92.5 fL Normal 83.5-101 [facility] Comment on above: Performed By: #### B MP, HS TROP, CBC, PT, PTT, BNP #### [facility] [address] Mean Corpuscular HGB Conc 33.9 g/dL Normal 32.5-35.6 [facility] Comment on above: Performed By: #### B MP, HS TROP, CBC, PT, PTT, BNP #### [address] Monocytes (Bld) [#/Vol] 0.6 10*3/uL Normal 0.0-0.8 [facility] Comment on above: Performed By: #### B MP, HS TROP, CBC, PT, PTT, BNP #### [address] Monocytes/100 WBC (Bld) 8.3 % Normal . [facility] Comment on above: Performed By: #### B MP, HS TROP, CBC, PT, PTT, BNP #### [address] Neutrophils (Bld) [#/Vol] 5.8 10*3/uL Normal 1.8-7.7 [facility] Comment on above: Performed By: #### B MP, HS TROP, CBC, PT, PTT, BNP #### [address] Neutrophils/100 WBC (Bld) 74.0 % Normal . [facility] Comment on above: Performed By: #### B MP, HS TROP, CBC, PT, PTT, BNP #### [place] [address] [place] Nucleated RBC/100 WBC (Bld) [Ratio] 0.0 % Normal 0-0.5 [facility] Comment on above: Performed By: #### B MP, HS TROP, CBC, PT, PTT, BNP #### [place] [address] [place] Platelet mean volume (Bld) [Entitic vol] 8.0 fL Normal 6.6-10.1 [facility] Comment on above: Performed By: #### B MP, HS TROP, CBC, PT, PTT, BNP #### [facility] [address] Platelets (Bld) [#/Vol] 409 10*3/uL Normal 150-450 [facility] Comment on above: Performed By: #### B MP, HS TROP, CBC, PT, PTT, BNP #### [address] RBC (Bld) [#/Vol] 4.53 10*6/uL Normal 3.90-5.60 [facility] Comment on above: Performed By: #### B MP, HS TROP, CBC, PT, PTT, BNP #### [address] WBC (Bld) [#/Vol] 7.8 10*3/uL Normal 4.5-11.0 [facility] Comment on above: Performed By: #### B MP, HS TROP, CBC, PT, PTT, BNP #### [address] Creatine Kinaseon 12-09-2020 CK [Catalytic activity/Vol] 128 U/L Normal 22-269 [facility] Comment on above: Order Comment: get a ll labs @0315 per rn Performed By: #### B MP, HS TROP, CBC, PT, PTT, BNP #### [address] Creatinine Kinase MBon 12-09 CK.MB [Mass/Vol] 15.6 ng/mL High 0.6-6.3 [facility] Comment on above: Order Comment: get a ll labs @0315 per rn Performed By: #### B MP, HS TROP, CBC, PT, PTT, BNP #### [address] CKMB Relative Index 12.1 % High 0.00-2.50 [facility] Comment on above: Order Comment: get a ll labs @0315 per rn Performed By: #### B MP, HS TROP, CBC, PT, PTT, BNP #### [facility] [address] [place] [address] [facility] ECG 12 lead ECGon 12-09-2020 ECG 12 lead ECG [facility] Main [place] [address] [place] [address] Electrocardiograph Report Signed Patient: Vishal Duke MR#: [id number] : 1960 Acct:[id number] Age/Sex: 59 / M ADM Date: 12/08/20 Loc: Room: [address] [place] [address] Type: ADM IN Attending Dr: Leonardo Storey [...] 12/09/20 0816 Signed By: 12/09/20 1315 Normal [facility] Magnesiumon 12-09-2020 Magnesium [Mass/Vol] 2.0 mg/dL Normal 1.6-2.6 [facility] Comment on above: Order Comment: Comme nt Add on to am Result Comment: PERF ORMED BY: [place] [address] PATHOLOGIST PACKAGING MANAGER SHYANN OLIVIER M.D. Performed By: #### B MP, HS TROP, CBC, PT, PTT, BNP #### [facility] [address] [place], [place] [id number] [facility] Partial Thromboplastin Timeo n 12-09-2020 aPTT Coag (Bld) [Time] 37.7 s High 25.1-36.5 [facility] Comment on above: Result Comment: PERF ORMED BY: [place] [address] PATHOLOGIST PACKAGING MANAGER SHYANN OLIVIER M.D. Performed By: #### B MP, HS TROP, CBC, PT, PTT, BNP #### [place] [id number] [place] Prothrombin Time INRon 12-09 INR Coag (PPP) [Relative time] 1.2 {INR} Normal [facility] Comment on above: Result Comment: INR [...] HS TROP, CBC, PT, PTT, BNP #### [address] PT Coag (PPP) [Time] 13.8 s High 9.0-12.9 [facility] Comment on above: Performed By: #### B MP, HS TROP, CBC, PT, PTT, BNP #### [address] Troponin I High Sensitivityo n 12-09-2020 Troponin I High Sensitivity 1641 pg/mL Off scale high 0-20 [facility] Comment on above: Order Comment: * RN to call lab when pt returns hko Result Comment: PERF ORMED BY: [place] [address] PATHOLOGIST PACKAGING MANAGER SHYANN OLIVIER M.D. Performed By: #### B MP, HS TROP, CBC, PT, PTT, BNP #### [facility] [address] Troponin I High Sensitivity 2472 pg/mL Off scale high 0-20 [facility] Comment on above: Order Comment: Comme nt during code blue Result Comment: PERF ORMED BY: [place] [address] PATHOLOGIST PACKAGING MANAGER SHYANN OLIVIER M.D. Performed By: #### B MP, HS TROP, CBC, PT, PTT, BNP #### [address] Troponin I High Sensitivity 1363 pg/mL Off scale high 0-20 [facility] Comment on above: Order Comment: get a ll labs @0315 per rn Result Comment: PERF ORMED BY: [place] [address] PATHOLOGIST PACKAGING MANAGER SHYANN OLIVIER M.D. Performed By: #### B MP, HS TROP, CBC, PT, PTT, BNP #### [address] B-Type Natriuretic Peptideon 12-08-2020 Natriuretic peptide B (Bld) [Mass/Vol] 199.0 pg/mL High 5-100 [facility] Comment on above: Result Comment: PERF ORMED BY: [place] [address] PATHOLOGIST PACKAGING MANAGER SHYANN OLIVIER M.D. Performed By: #### B MP, HS TROP, CBC, PT, PTT, BNP #### [address] Basic Metabolic Panelon 08-2 Calcium [Mass/Vol] 10.1 mg/dL Normal 8.2-10.2 [facility] Comment on above: Performed By: #### B MP, HS TROP, CBC, PT, PTT, BNP #### [address] Chloride [Moles/Vol] 101 mmol/L Normal 95-114 [facility] Comment on above: Performed By: #### B MP, HS TROP, CBC, PT, PTT, BNP #### [facility] [address] CO2 [Moles/Vol] 23.2 mmol/L Normal 22.0-30.0 [facility] Comment on above: Performed By: #### B MP, HS TROP, CBC, PT, PTT, BNP #### [facility] [address] Creatinine [Mass/Vol] 1.15 mg/dL Normal 0.64-1.27 [facility] Comment on above: Performed By: #### B MP, HS TROP, CBC, PT, PTT, BNP #### [address] Creatinine Clr Calc Pharmacy 81.22 [facility] Comment on above: Result Comment: PERF ORMED BY: [place] [address] PATHOLOGIST PACKAGING MANAGER SHYANN OLIVIER M.D. Performed By: #### B MP, HS TROP, CBC, PT, PTT, BNP #### [address] Estimated GFR ( Nata > 60 [facility] Comment on above: Result Comment: GFR estimated reference range: According to KDOQI guidelines, <60 ml/min/1.73m2 is sufficient to diagnose a patient with chronic kidney disease. Performed By: #### B MP, HS TROP, CBC, PT, PTT, BNP #### [address] Estimated GFR (Non- Am > 60 [facility] Comment on above: Performed By: #### B MP, HS TROP, CBC, PT, PTT, BNP #### [address] Glucose [Mass/Vol] 153 mg/dL High 70-100 [facility] Comment on above: Result Comment: [place] Glucose Reference Range is dependent on time and content of last meal. Glucose of more than 200 mg/dL in a nonstressed, ambulatory subject supports the diagnosis of Diabetes Mellitus. ADA recommended reference range Performed By: #### B MP, HS TROP, CBC, PT, PTT, BNP #### [facility] [address] Potassium [Moles/Vol] 4.5 mmol/L Normal 3.5-5.1 [facility] Comment on above: Performed By: #### B MP, HS TROP, CBC, PT, PTT, BNP #### [facility] [address] Sodium [Moles/Vol] 139 mmol/L Normal 136-146 [facility] Comment on above: Performed By: #### B MP, HS TROP, CBC, PT, PTT, BNP #### [facility] [address] Urea nitrogen [Mass/Vol] 15 mg/dL Normal 9-23 [facility] Comment on above: Performed By: #### B MP, HS TROP, CBC, PT, PTT, BNP #### [facility] [address] COVID-19 Antigenon 1 COVID-19 Antigen Healthcare Worker?: N Tessa Reference Tessa Reference Negative SARS-CoV+SARS-CoV-2 (COVID-19) Ag [Presence] in Respiratory specimen by Rapid immunoassay Negative for SARS Antigen by GIS[employer] COVID19 Blank Space -------- Tessa Disclaimer Negative results, from patients with [...] Disclaimer consistent with COVID-19. COVID19 Blank Space -------- Tessa Disclaimer The [employer]essa SARS Antigen GISSEL does not differentiate Tessa Disclaimer between SARS-CoV and SARS-CoV-2. COVID19 Blank Space -------- Tessa Disclaimer This test was developed and its performance Tessa Disclaimer characteristic determined by [employer] and Tessa Disclaimer validated at [facility]. This Tessa Disclaimer test has not [...] is terminated or revoked sooner. PERFORMED BY: [facility] [address] PATHOLOGIST PACKAGING MANAGER SHYANN OLIVIER M.D. Normal [facility] Comment on above: Performed By: #### S OFIANEG, COVID-19 TESSA, COVID 19 [facility] #### [facility] [address] [place] [id number] [facility] COVID-19 FRon 12-08-2020 SARS-CoV-2 (COVID-19) RNA ADELINE+probe Ql (Unsp spec) Negative Normal Negative [facility] Comment on above: Order Comment: Healt hcare Worker?: N Result Comment: Testing for SARS-CoV-2 by RT-PCR This test was developed and its performance characteristics determined by [employer] and validated at the [facility]. This test has not been FDA [...] is terminated or revoked sooner. PERFORMED BY: [place] [address] PATHOLOGIST PACKAGING MANAGER SHYANN OLIVIER M.D. Performed By: #### B MP, HS TROP, CBC, PT, PTT, BNP #### [facility] [address] [place], [place] [id number] [facility] CT abdomen pelvis wo conon 0 12-08-2020 CT abdomen pelvis wo con [facility] [address] [place] [address] [place] [address] CT Scan Report Signed Patient: Vishal Duke MR#: [id number] : 1960 Acct:[id number] Age/Sex: 59 / M ADM Date: 12/08/20 Loc: ER Room: Type: [facility] ER Attending Dr: Ordering Provider: Irwin Lutz [...] Biju Ag M.D.12/08/2020 11:16 AM Dictation Location: [place] [address] Transcribed By: [facility] 12/08/20 1116 Dictated By: Biju Ag MD 12/08/20 1102 Signed By: 12/08/20 1116 Normal [facility] Complete Blood Count Auto Di ffon 12-08-2020 Basophils (Bld) [#/Vol] 0.1 10*3/uL Normal 0.0-0.2 [facility] Comment on above: Result Comment: PERF ORMED BY: [place] [address] PATHOLOGIST PACKAGING MANAGER SHYANN OLIVIER M.D. Performed By: #### B MP, HS TROP, CBC, PT, PTT, BNP #### [address] Basophils/100 WBC (Bld) 0.6 % Normal . [facility] Comment on above: Performed By: #### B MP, HS TROP, CBC, PT, PTT, BNP #### [facility] [address] [place] [address] Eosinophils (Bld) [#/Vol] 0.2 10*3/uL Normal 0.0-0.45 [facility] Comment on above: Performed By: #### B MP, HS TROP, CBC, PT, PTT, BNP #### [facility] [address] Eosinophils/100 WBC (Bld) 2.5 % Normal . [facility] Comment on above: Performed By: #### B MP, HS TROP, CBC, PT, PTT, BNP #### [address] Erythrocyte distribution width (RBC) [Ratio] 15.2 % High 12.0-14.8 [facility] Comment on above: Performed By: #### B MP, HS TROP, CBC, PT, PTT, BNP #### [address] Hematocrit (Bld) [Volume fraction] 41.7 % Normal 38.8-50.0 [facility] Comment on above: Performed By: #### B MP, HS TROP, CBC, PT, PTT, BNP #### [address] Hemoglobin (Bld) [Mass/Vol] 14.0 g/dL Normal 13.0-17.0 [facility] Comment on above: Performed By: #### B MP, HS TROP, CBC, PT, PTT, BNP #### [address] Lymphocytes (Bld) [#/Vol] 0.9 10*3/uL Low 1.00-4.8 [facility] Comment on above: Performed By: #### B MP, HS TROP, CBC, PT, PTT, BNP #### [address] Lymphocytes/100 WBC (Bld) 10.9 % Normal . [facility] Comment on above: Performed By: #### B MP, HS TROP, CBC, PT, PTT, BNP #### [address] MCH (RBC) [Entitic mass] 31.5 pg Normal 27.5-35.2 [facility] Comment on above: Performed By: #### B MP, HS TROP, CBC, PT, PTT, BNP #### [address] MCV (RBC) [Entitic vol] 93.7 fL Normal 83.5-101 [facility] Comment on above: Performed By: #### B MP, HS TROP, CBC, PT, PTT, BNP #### [address] Mean Corpuscular HGB Conc 33.6 g/dL Normal 32.5-35.6 [facility] Comment on above: Performed By: #### B MP, HS TROP, CBC, PT, PTT, BNP #### [facility] [address] [place] [address] [place] Monocytes (Bld) [#/Vol] 0.6 10*3/uL Normal 0.0-0.8 [facility] Comment on above: Performed By: #### B MP, HS TROP, CBC, PT, PTT, BNP #### [facility] [address] Monocytes/100 WBC (Bld) 7.4 % Normal . [facility] Comment on above: Performed By: #### B MP, HS TROP, CBC, PT, PTT, BNP #### [address] Neutrophils (Bld) [#/Vol] 6.7 10*3/uL Normal 1.8-7.7 [facility] Comment on above: Performed By: #### B MP, HS TROP, CBC, PT, PTT, BNP #### [address] Neutrophils/100 WBC (Bld) 78.6 % Normal . [facility] Comment on above: Performed By: #### B MP, HS TROP, CBC, PT, PTT, BNP #### [place] [address] [place] Nucleated RBC/100 WBC (Bld) [Ratio] 0.1 % Normal 0-0.5 [facility] Comment on above: Performed By: #### B MP, HS TROP, CBC, PT, PTT, BNP #### [facility] [address] [place] [address] [place] Platelet mean volume (Bld) [Entitic vol] 8.2 fL Normal 6.6-10.1 [facility] Comment on above: Performed By: #### B MP, HS TROP, CBC, PT, PTT, BNP #### [place] [address] [place] Platelets (Bld) [#/Vol] 414 10*3/uL Normal 150-450 [facility] Comment on above: Performed By: #### B MP, HS TROP, CBC, PT, PTT, BNP #### [address] RBC (Bld) [#/Vol] 4.44 10*6/uL Normal 3.90-5.60 [facility] Comment on above: Performed By: #### B MP, HS TROP, CBC, PT, PTT, BNP #### [address] WBC (Bld) [#/Vol] 8.5 10*3/uL Normal 4.5-11.0 [facility] Comment on above: Performed By: #### B MP, HS TROP, CBC, PT, PTT, BNP #### [address] Basophils (Bld) [#/Vol] 0.1 10*3/uL Normal 0.0-0.2 [facility] Comment on above: Result Comment: PERF ORMED BY: [place] [address] PATHOLOGIST PACKAGING MANAGER SHYANN OLIVIER M.D. Performed By: #### B MP, HS TROP, CBC, PT, PTT, BNP #### [address] Basophils/100 WBC (Bld) 0.7 % Normal . [facility] Comment on above: Performed By: #### B MP, HS TROP, CBC, PT, PTT, BNP #### [address] Eosinophils (Bld) [#/Vol] 0.2 10*3/uL Normal 0.0-0.45 [facility] Comment on above: Performed By: #### B MP, HS TROP, CBC, PT, PTT, BNP #### [address] Eosinophils/100 WBC (Bld) 1.8 % Normal . [facility] Comment on above: Performed By: #### B MP, HS TROP, CBC, PT, PTT, BNP #### [address] Erythrocyte distribution width (RBC) [Ratio] 15.5 % High 12.0-14.8 [facility] Comment on above: Performed By: #### B MP, HS TROP, CBC, PT, PTT, BNP #### [address] Hematocrit (Bld) [Volume fraction] 42.0 % Normal 38.8-50.0 [facility] Comment on above: Performed By: #### B MP, HS TROP, CBC, PT, PTT, BNP #### [address] Hemoglobin (Bld) [Mass/Vol] 14.2 g/dL Normal 13.0-17.0 [facility] Comment on above: Performed By: #### B MP, HS TROP, CBC, PT, PTT, BNP #### [address] Lymphocytes (Bld) [#/Vol] 0.8 10*3/uL Low 1.00-4.8 [facility] Comment on above: Performed By: #### B MP, HS TROP, CBC, PT, PTT, BNP #### [address] Lymphocytes/100 WBC (Bld) 7.7 % Normal . [facility] Comment on above: Performed By: #### B MP, HS TROP, CBC, PT, PTT, BNP #### [address] MCH (RBC) [Entitic mass] 31.3 pg Normal 27.5-35.2 [facility] Comment on above: Performed By: #### B MP, HS TROP, CBC, PT, PTT, BNP #### [address] MCV (RBC) [Entitic vol] 92.4 fL Normal 83.5-101 [facility] Comment on above: Performed By: #### B MP, HS TROP, CBC, PT, PTT, BNP #### [address] Mean Corpuscular HGB Conc 33.9 g/dL Normal 32.5-35.6 [facility] Comment on above: Performed By: #### B MP, HS TROP, CBC, PT, PTT, BNP #### [address] Monocytes (Bld) [#/Vol] 0.8 10*3/uL Normal 0.0-0.8 [facility] Comment on above: Performed By: #### B MP, HS TROP, CBC, PT, PTT, BNP #### [address] Monocytes/100 WBC (Bld) 7.5 % Normal . [facility] Comment on above: Performed By: #### B MP, HS TROP, CBC, PT, PTT, BNP #### [address] Neutrophils (Bld) [#/Vol] 9.0 10*3/uL High 1.8-7.7 [facility] Comment on above: Performed By: #### B MP, HS TROP, CBC, PT, PTT, BNP #### [address] Neutrophils/100 WBC (Bld) 82.3 % Normal . [facility] Comment on above: Performed By: #### B MP, HS TROP, CBC, PT, PTT, BNP #### [address] Nucleated RBC/100 WBC (Bld) [Ratio] 0.1 % Normal 0-0.5 [facility] Comment on above: Performed By: #### B MP, HS TROP, CBC, PT, PTT, BNP #### [address] Platelet mean volume (Bld) [Entitic vol] 7.9 fL Normal 6.6-10.1 [facility] Comment on above: Performed By: #### B MP, HS TROP, CBC, PT, PTT, BNP #### [address] [place] [address] [place] Platelets (Bld) [#/Vol] 463 10*3/uL High 150-450 [facility] Comment on above: Performed By: #### B MP, HS TROP, CBC, PT, PTT, BNP #### [address] RBC (Bld) [#/Vol] 4.54 10*6/uL Normal 3.90-5.60 [facility] Comment on above: Performed By: #### B MP, HS TROP, CBC, PT, PTT, BNP #### [address] WBC (Bld) [#/Vol] 11.0 10*3/uL Normal 4.5-11.0 [facility] Comment on above: Performed By: #### B MP, HS TROP, CBC, PT, PTT, BNP #### [address] Creatine Kinaseon 12-08-2020 CK [Catalytic activity/Vol] 78 U/L Normal 22-269 [facility] Comment on above: Performed By: #### B MP, HS TROP, CBC, PT, PTT, BNP #### [address] CK [Catalytic activity/Vol] 67 U/L Normal 22-269 [facility] Comment on above: Performed By: #### B MP, HS TROP, CBC, PT, PTT, BNP #### [address] CK [Catalytic activity/Vol] 58 U/L Normal 22-269 [facility] Comment on above: Performed By: #### B MP, HS TROP, CBC, PT, PTT, BNP #### [address] Creatinine Kinase MBon 12-08 CK.MB [Mass/Vol] 6.3 ng/mL Normal 0.6-6.3 [facility] Comment on above: Performed By: #### B MP, HS TROP, CBC, PT, PTT, BNP #### [facility] [address] CKMB Relative Index 8.0 % High 0.00-2.50 [facility] Comment on above: Performed By: #### B MP, HS TROP, CBC, PT, PTT, BNP #### [address] CK.MB [Mass/Vol] 4.2 ng/mL Normal 0.6-6.3 [facility] Comment on above: Performed By: #### B MP, HS TROP, CBC, PT, PTT, BNP #### [address] CKMB Relative Index 6.2 % High 0.00-2.50 [facility] Comment on above: Performed By: #### B MP, HS TROP, CBC, PT, PTT, BNP #### [address] CK.MB [Mass/Vol] 3.7 ng/mL Normal 0.6-6.3 [facility] Comment on above: Performed By: #### B MP, HS TROP, CBC, PT, PTT, BNP #### [address] CKMB Relative Index 6.3 % High 0.00-2.50 [facility] Comment on above: Performed By: #### B MP, HS TROP, CBC, PT, PTT, BNP #### [address] ECG 12 lead ECGon 12-08-2020 ECG 12 lead ECG [facility] [address] Electrocardiograph Report Signed Patient: Vishal Duke MR#: [id number] : 1960 Acct:[id number] Age/Sex: 59 / M ADM Date: 12/08/20 Loc: Room: [address] [place] [address] Type: ADM INOo Attending Dr: Daniel Prabhakar [...] Lateral leads Confirmed by IRWIN LUTZ DO ([id number]) on 12/09/2020 6:02:40 AM Referred By: Electronically Signed By:IRWIN LUTZ DO Transcribed By: MUS Dictated By: Irwin Lutz DO 12/08/20 0950 Signed By: 12/09/20 0602 Normal [facility] Partial Thromboplastin Timeo n 12-08-2020 aPTT Coag (Bld) [Time] 131.9 s Off scale high 25.1-36.5 [facility] Comment on above: Result Comment: Resu lts called at 1947 on 12/08/20 PERFORMED BY: [place] [id number] PATHOLOGIST PACKAGING MANAGER SHYANN OLIVIER M.D. Performed By: #### B MP, HS TROP, CBC, PT, PTT, BNP #### [facility] [address] [place] [address] [facility] aPTT Coag (Bld) [Time] 36.2 s Normal 25.1-36.5 [facility] Comment on above: Result Comment: PERF ORMED BY: [place] [address] PATHOLOGIST PACKAGING MANAGER SHYANN OLIVIER M.D. Performed By: #### B MP, HS TROP, CBC, PT, PTT, BNP #### [facility] [address] [place] [address] [place] Prothrombin Time INRon 12-08 INR Coag (PPP) [Relative time] 1.5 {INR} Normal [facility] Comment on above: Result Comment: INR [...] HS TROP, CBC, PT, PTT, BNP #### [address] PT Coag (PPP) [Time] 16.1 s High 9.0-12.9 [facility] Comment on above: Performed By: #### B MP, HS TROP, CBC, PT, PTT, BNP #### [address] INR Coag (PPP) [Relative time] 1.3 {INR} Normal [facility] Comment on above: Result Comment: INR [...] HS TROP, CBC, PT, PTT, BNP #### [facility] [address] [place] [address] PT Coag (PPP) [Time] 14.0 s High 9.0-12.9 [facility] Comment on above: Performed By: #### B MP, HS TROP, CBC, PT, PTT, BNP #### [facility] [address] [place] [address] Tessa Ag Negativeon 12-09-19 21 Tessa Ag Negative Negative Normal Negative [facility] Comment on above: Result Comment: This is a duplicate Tessa SARS Antigen (GISSEL) result to be used for statistical tracking purpose only. PERFORMED BY: [place] [id number] PATHOLOGIST PACKAGING MANAGER SHYANN OLIVIER M.D. Performed By: #### S VICTORIA, COVID-19 [place], COVID 19 [facility] #### [facility] [address] [place] [address] [place] Troponin I High Sensitivityo n 12-08-2020 Troponin I High Sensitivity 474 pg/mL Off scale high 0-20 [facility] Comment on above: Result Comment: PERF ORMED BY: [place] [address] PATHOLOGIST PACKAGING MANAGER SHYANN OLIVIER M.D. Performed By: #### B MP, HS TROP, CBC, PT, PTT, BNP #### [facility] [address] [place] [address] Troponin I High Sensitivity 317 pg/mL Off scale high 0-20 [facility] Comment on above: Result Comment: PERF ORMED BY: [place] [address] PATHOLOGIST PACKAGING MANAGER SHYANN OLIVIER M.D. Performed By: #### B MP, HS TROP, CBC, PT, PTT, BNP #### [facility] [address] [place] [address] Troponin I High Sensitivity 183 pg/mL Off scale high 0-20 [facility] Comment on above: Result Comment: Crit ical value result called at 1719 on 12/08/20 PERFORMED BY: [place] [address] PATHOLOGIST PACKAGING MANAGER SHYANN OLIVIER M.D. Performed By: #### B MP, HS TROP, CBC, PT, PTT, BNP #### [facility] [address] [place] [address] [place] Troponin I High Sensitivity 49 pg/mL High 0-20 [facility] Comment on above: Result Comment: PERF ORMED BY: [place] [address] PATHOLOGIST PACKAGING MANAGER SHYANN OLIVIER M.D. Performed By: #### B MP, HS TROP, CBC, PT, PTT, BNP #### [facility] [address] [place] [address] [facility] XR chest 1V portableon 12-08 XR chest 1V portable [facility] [address] [place] [address] [place] [address] XRay Report Signed Patient: Vishal Duke MR#: [id number] : 1960 Acct:[id number] Age/Sex: 59 / M ADM Date: 12/08/20 Loc: ER Room: Type: [facility] ER Attending Dr: Ordering Provider: Irwin Lutz [...] Biju Ag M.D.12/08/2020 11:02 AM Dictation Location: [place] [address] Transcribed By: [facility] 12/08/20 1102 Dictated By: Biju Ag MD 12/08/20 1059 Signed By: 12/08/20 1102 [facility] TACROLIMUSon 12-04-2020 Tacrolimus (Bld) [Mass/Vol] 8.0 ng/mL Normal 5.0-20.0 [facility] Comment on above: Order Comment: Yes: Add to Previous draw if able Result Comment: The [employer] Tacrolimus assay is a delayed one-step immunoassay for the quantitative determination of tacrolimus in human whole blood using the chemiluminescent microparticle immunoassay (CMIA) technology with flexible assay protocols, referred to as Chemiflex. Performed By: #### 2 5508, 33112, 74659, 67819, 07679 #### [facility] [address] TROPONIN-Ion 12-04-2020 Troponin I.cardiac [Mass/Vol] 0.03 ng/mL Normal 0.00-0.04 [facility] Comment on above: Order Comment: No: D o not add to previous draw Pt in bath room askme to come back Result Comment: REFE RENCE RANGES: 0.00 - 0.04 ng/ml NORMAL 0.05 - 0.50 ng/ml INDETERMINATE > 0.50 ng/ml CONSISTENT WITH AN M.I. Performed By: #### 3 5200 #### [facility] [address] Order Comment: No: D o not add to previous draw Performed By: #### 2 5508, 38282, 49729, 36006, 30120 #### [facility] [address] Troponin I.cardiac [Mass/Vol] 0.03 ng/mL Normal 0.00-0.04 [facility] Comment on above: Result Comment: REFE RENCE RANGES: 0.00 - 0.04 ng/ml NORMAL 0.05 - 0.50 ng/ml INDETERMINATE > 0.50 ng/ml CONSISTENT WITH AN M.I. Performed By: #### 2 5508, 68687, 54758, 24968, 74957 #### [facility] [address] ktx basic metabolic panelon 12-04-2020 Calcium [Mass/Vol] 8.9 mg/dL Normal 8.6-10.3 [facility] Comment on above: Performed By: #### 2 5508, 89170, 12850, 32406, 50076 #### [facility] [address] [place] [address], [place] Chloride [Moles/Vol] 106 mmol/L Normal 98-107 [facility] Comment on above: Performed By: #### 2 5508, 00568, 28608, 88602, 85946 #### [facility] [address] [place] [address], [place] CO2 [Moles/Vol] 19 mmol/L Low 21-31 [facility] Comment on above: Performed By: #### 2 5508, 02030, 68518, 81337, 14620 #### [facility] [address] [place] [address], [place] Creatinine [Mass/Vol] 0.82 mg/dL Normal 0.70-1.30 [facility] Comment on above: Performed By: #### 2 5508, 64598, 61671, 47516, 94831 #### [facility] [address] [place] [address], [place] GFR/1.73 sq M.predicted among blacks MDRD (S/P/Bld) [Vol rate/Area] mL/min/{1.73_m2} Normal >60 [facility] Comment on above: Performed By: #### 2 5508, 26080, 73064, 30118, 78297 #### [facility] [address] [place] [address], [place] GFR/1.73 sq M.predicted among non-blacks MDRD (S/P/Bld) [Vol rate/Area] mL/min/{1.73_m2} Normal >60 [facility] Comment on above: Performed By: #### 2 5508, 39303, 38378, 11728, 94434 #### [facility] [address] [place] [address], [place] Glucose [Mass/Vol] 127 mg/dL High 70-100 [facility] Comment on above: Performed By: #### 2 5508, 31188, 23518, 18822, 33967 #### [facility] [address] [place] [address], [place] Potassium [Moles/Vol] 3.9 mmol/L Normal 3.5-5.1 [facility] Comment on above: Performed By: #### 2 5508, 31794, 35543, 45895, 17400 #### [facility] [address] [place] [address], [place] Sodium [Moles/Vol] 136 mmol/L Normal 136-145 [facility] Comment on above: Performed By: #### 2 5508, 75893, 12737, 98339, 87862 #### [facility] [address] [place] [address], [facility] Urea nitrogen [Mass/Vol] 10 mg/dL Normal 7-25 [facility] Comment on above: Performed By: #### 2 5508, 90326, 81936, 13243, 17175 #### [facility] [address] [place] [address], [place] ktx cbc complete blood count on 12-04-2020 Erythrocyte distribution width (RBC) [Ratio] 14.6 % Normal 11.5-15.0 [facility] Comment on above: Performed By: #### 6 1405 #### [facility] [address] [place] [address], [place] Hematocrit (Bld) [Volume fraction] 38.7 % Low 39.0-50.0 [facility] Comment on above: Performed By: #### 6 1405 #### [facility] [address] [place] [address], [place] Hemoglobin (Bld) [Mass/Vol] 12.8 g/dL Low 13.0-17.0 [facility] Comment on above: Performed By: #### 6 1405 #### [facility] [address] MCH (RBC) [Entitic mass] 31.3 pg Normal 27.0-33.0 [facility] Comment on above: Performed By: #### 6 1405 #### [facility] 3000 [facility] [place] [address], [facility] MCHC (RBC) [Mass/Vol] 33.1 g/dL Normal 32.0-35.0 [facility] Comment on above: Performed By: #### 6 1405 #### [facility] [address] [place] [address], [facility] MCV (RBC) [Entitic vol] 94.6 fL Normal 82.0-98.0 [facility] Comment on above: Performed By: #### 6 1405 #### [facility] [address] Nucleated RBC/100 WBC (Bld) [Ratio] 0 % Normal 0-0 [facility] Comment on above: Performed By: #### 6 1405 #### [facility] [address] [place] [address], [facility] PLAT CNT 224 10*3/uL Normal 150-400 [facility] Comment on above: Performed By: #### 6 1405 #### [facility] [address] [place] [address], [facility] RBC (Bld) [#/Vol] 4.09 10*6/uL Low 4.20-5.70 [facility] Comment on above: Performed By: #### 6 1405 #### [facility] [address] [place] [address], [facility] WBC (Bld) [#/Vol] 12.30 10*3/uL High 4.00-10.60 [facility] Comment on above: Performed By: #### 6 1405 #### [facility] [address] [place] [address], [facility] ktx magnesium bloodon 08-20- 2021 Magnesium [Mass/Vol] 1.6 mg/dL Low 1.9-2.7 [facility] Comment on above: Performed By: #### 2 5508, 55550, 98216, 16534, 38829 #### [facility] [address] [place] [address], [facility] ktx phosphoruson 12-04-2020 Phosphate [Mass/Vol] 2.4 mg/dL Low 2.5-5.0 [facility] Comment on above: Performed By: #### 2 5508, 87637, 03136, 58407, 54991 #### [facility] [address] [place] [address], [facility] TACROLIMUSon 12-03-2020 Tacrolimus (Bld) [Mass/Vol] 9.1 ng/mL Normal 5.0-20.0 [facility] Comment on above: Order Comment: Yes: Add to Previous draw if able Result Comment: The [employer] Tacrolimus assay is a delayed one-step immunoassay for the quantitative determination of tacrolimus in human whole blood using the chemiluminescent microparticle immunoassay (CMIA) technology with flexible assay protocols, referred to as Chemiflex. Performed By: #### 2 5508, 17585, 21276, 11000, 42968 #### [facility] [address] [place] [address], [facility] ktx basic metabolic panelon 12-03-2020 Calcium [Mass/Vol] 9.5 mg/dL Normal 8.6-10.3 [facility] Comment on above: Performed By: #### 2 5508, 29585, 40330, 86256, 66936 #### [facility] [address] [place] [address], [facility] Chloride [Moles/Vol] 102 mmol/L Normal 98-107 [facility] Comment on above: Performed By: #### 2 5508, 04878, 76189, 59422, 04335 #### [facility] [address] [place] [address], [facility] CO2 [Moles/Vol] 22 mmol/L Normal 21-31 [facility] Comment on above: Performed By: #### 2 5508, 26573, 59684, 04994, 76874 #### [facility] [address] [place] [address], [place] Creatinine [Mass/Vol] 0.88 mg/dL Normal 0.70-1.30 [facility] Comment on above: Performed By: #### 2 5508, 59521, 84552, 14264, 26264 #### [facility] [address] [place] [address], [place] GFR/1.73 sq M.predicted among blacks MDRD (S/P/Bld) [Vol rate/Area] mL/min/{1.73_m2} Normal >60 [facility] Comment on above: Performed By: #### 2 5508, 71027, 16453, 49963, 20338 #### [facility] [address] [place] [address], [place] GFR/1.73 sq M.predicted among non-blacks MDRD (S/P/Bld) [Vol rate/Area] mL/min/{1.73_m2} Normal >60 [facility] Comment on above: Performed By: #### 2 5508, 35355, 68263, 33315, 03313 #### [facility] [address] [place] [address], [place] Glucose [Mass/Vol] 120 mg/dL High 70-100 [facility] Comment on above: Performed By: #### 2 5508, 81143, 05591, 21312, 18563 #### [facility] [address] [place] [address], [place] Potassium [Moles/Vol] 3.8 mmol/L Normal 3.5-5.1 [facility] Comment on above: Performed By: #### 2 5508, 58920, 67190, 03414, 94959 #### [facility] [address] [place] [address], [facility] Sodium [Moles/Vol] 134 mmol/L Low 136-145 [facility] Comment on above: Performed By: #### 2 5508, 88493, 56810, 53210, 15674 #### [facility] [address] [place] [address], [place] Urea nitrogen [Mass/Vol] 9 mg/dL Normal 7-25 [facility] Comment on above: Performed By: #### 2 5508, 21758, 86347, 70125, 03043 #### [facility] [address] [place] [address], [facility] ktx cbc complete blood count on 12-03-2020 Erythrocyte distribution width (RBC) [Ratio] 14.6 % Normal 11.5-15.0 [facility] Comment on above: Performed By: #### 6 1405 #### [facility] [address] [place] [address], [facility] Hematocrit (Bld) [Volume fraction] 40.4 % Normal 39.0-50.0 [facility] Comment on above: Performed By: #### 6 1405 #### [facility] [address] [place] [address], [facility] Hemoglobin (Bld) [Mass/Vol] 13.6 g/dL Normal 13.0-17.0 [facility] Comment on above: Performed By: #### 6 1405 #### [facility] [address] [place] [address], [place] MCH (RBC) [Entitic mass] 31.1 pg Normal 27.0-33.0 [facility] Comment on above: Performed By: #### 6 1405 #### [facility] [address] [place] [address], [place] MCHC (RBC) [Mass/Vol] 33.7 g/dL Normal 32.0-35.0 [facility] Comment on above: Performed By: #### 6 1405 #### [facility] [address] [place] [address], [facility] MCV (RBC) [Entitic vol] 92.4 fL Normal 82.0-98.0 [facility] Comment on above: Performed By: #### 6 1405 #### [facility] [address] [facility] [place] [address], [facility] Nucleated RBC/100 WBC (Bld) [Ratio] 0 % Normal 0-0 [facility] Comment on above: Performed By: #### 6 1405 #### [facility] [address] [facility] [place] [address], [facility] PLAT CNT 240 10*3/uL Normal 150-400 [facility] Comment on above: Performed By: #### 6 1405 #### [facility] [address] [facility] [place] [address], [facility] RBC (Bld) [#/Vol] 4.37 10*6/uL Normal 4.20-5.70 [facility] Comment on above: Performed By: #### 6 1405 #### [facility] [address] [facility] [place] [address], [facility] WBC (Bld) [#/Vol] 12.42 10*3/uL High 4.00-10.60 [facility] Comment on above: Performed By: #### 6 1405 #### [facility] [address] [facility] [place] [address], [facility] ktx magnesium bloodon 2020 Magnesium [Mass/Vol] 2.1 mg/dL Normal 1.9-2.7 [facility] Comment on above: Performed By: #### 2 5508, 33205, 27740, 04223, 67606 #### [facility] [address] [facility] [place] [address], [facility] ktx phosphoruson 12-03-2020 Phosphate [Mass/Vol] 3.3 mg/dL Normal 2.5-5.0 [facility] Comment on above: Performed By: #### 2 5508, 72127, 44252, 99045, 50796 #### [facility] [address] [place] [address], [facility] BASIC METABOLIC PANELon - Calcium [Mass/Vol] 10.1 mg/dL Normal 8.6-10.3 [facility] Comment on above: Order Comment: No: D o not add to previous draw Performed By: #### 2 5508, 16623, 33067, 63552, 47128 #### [facility] [address] [place] [address], [facility] Chloride [Moles/Vol] 97 mmol/L Low 98-107 [facility] Comment on above: Order Comment: No: D o not add to previous draw Performed By: #### 2 5508, 23417, 30263, 74654, 27469 #### [facility] [address] [place] [address], [facility] CO2 [Moles/Vol] 27 mmol/L Normal 21-31 [facility] Comment on above: Order Comment: No: D o not add to previous draw Performed By: #### 2 5508, 11425, 44756, 53179, 40654 #### [facility] [address] [place] [address], [facility] Creatinine [Mass/Vol] 1.12 mg/dL Normal 0.70-1.30 [facility] Comment on above: Order Comment: No: D o not add to previous draw Performed By: #### 2 5508, 43517, 51168, 75519, 91440 #### [facility] [address] [place] [id number], [facility] GFR/1.73 sq M.predicted among blacks MDRD (S/P/Bld) [Vol rate/Area] mL/min/{1.73_m2} Normal >60 [facility] Comment on above: Order Comment: No: D o not add to previous draw Performed By: #### 2 5508, 54798, 73096, 64083, 83734 #### [facility] [address] [place] [address], [facility] GFR/1.73 sq M.predicted among non-blacks MDRD (S/P/Bld) [Vol rate/Area] mL/min/{1.73_m2} Normal >60 [facility] Comment on above: Order Comment: No: D o not add to previous draw Performed By: #### 2 5508, 80155, 10687, 12569, 12748 #### [facility] [address] [place] [address], [place] Glucose [Mass/Vol] 124 mg/dL High 70-100 [facility] Comment on above: Order Comment: No: D o not add to previous draw Performed By: #### 2 5508, 70416, 09471, 43244, 16431 #### [facility] [address] [place] [address], [place] Potassium [Moles/Vol] 4.4 mmol/L Normal 3.5-5.1 [facility] Comment on above: Order Comment: No: D o not add to previous draw Performed By: #### 2 5508, 63970, 66216, 10138, 51298 #### [facility] [address] [place] [address], [place] Sodium [Moles/Vol] 133 mmol/L Low 136-145 [facility] Comment on above: Order Comment: No: D o not add to previous draw Performed By: #### 2 5508, 40619, 99683, 67055, 59865 #### [facility] [address] [place] [address], [place] Urea nitrogen [Mass/Vol] 17 mg/dL Normal 7-25 [facility] Comment on above: Order Comment: No: D o not add to previous draw Performed By: #### 2 5508, 79233, 67452, 96569, 90017 #### [facility] [address] [place] [address], [facility] CBC COMPLETE BLOOD COUNTon 12-02-2020 Erythrocyte distribution width (RBC) [Ratio] 14.7 % Normal 11.5-15.0 [facility] Comment on above: Order Comment: No: D o not add to previous draw Performed By: #### 6 1405 #### [facility] [address] [place] [address], [facility] Hematocrit (Bld) [Volume fraction] 43.7 % Normal 39.0-50.0 [facility] Comment on above: Order Comment: No: D o not add to previous draw Performed By: #### 6 1405 #### [facility] [address] [place] [address], [facility] Hemoglobin (Bld) [Mass/Vol] 14.1 g/dL Normal 13.0-17.0 [facility] Comment on above: Order Comment: No: D o not add to previous draw Performed By: #### 6 1405 #### [facility] [address] [place] [address], [facility] MCH (RBC) [Entitic mass] 30.8 pg Normal 27.0-33.0 [facility] Comment on above: Order Comment: No: D o not add to previous draw Performed By: #### 6 1405 #### [facility] [address] [place] [address], [facility] MCHC (RBC) [Mass/Vol] 32.3 g/dL Normal 32.0-35.0 [facility] Comment on above: Order Comment: No: D o not add to previous draw Performed By: #### 6 1405 #### [facility] [address] [place] [address], [facility] MCV (RBC) [Entitic vol] 95.4 fL Normal 82.0-98.0 [facility] Comment on above: Order Comment: No: D o not add to previous draw Performed By: #### 6 1405 #### [facility] [address] [place] [address], [facility] Nucleated RBC/100 WBC (Bld) [Ratio] 0 % Normal 0-0 [facility] Comment on above: Order Comment: No: D o not add to previous draw Performed By: #### 6 1405 #### [facility] [address] [place] [address], [facility] PLAT CNT 257 10*3/uL Normal 150-400 [facility] Comment on above: Order Comment: No: D o not add to previous draw Performed By: #### 6 1405 #### [facility] [address] [facility] [place] [address], [facility] RBC (Bld) [#/Vol] 4.58 10*6/uL Normal 4.20-5.70 [facility] Comment on above: Order Comment: No: D o not add to previous draw Performed By: #### 6 1405 #### [facility] [address] [facility] [place] [id number], [facility] WBC (Bld) [#/Vol] 13.96 10*3/uL High 4.00-10.60 [facility] Comment on above: Order Comment: No: D o not add to previous draw Performed By: #### 6 1405 #### [facility] [address] [facility] [place] [address], [facility] MAGNESIUM BLOODon 12-02-2020 Magnesium [Mass/Vol] 1.5 mg/dL Low 1.9-2.7 [facility] Comment on above: Order Comment: No: D o not add to previous draw Performed By: #### 2 5508, 53957, 14754, 87325, 31699 #### [facility] [address] [place] [address], [facility] PHOSPHORUS BLOODon Phosphate [Mass/Vol] 3.8 mg/dL Normal 2.5-5.0 [facility] Comment on above: Order Comment: No: D o not add to previous draw Performed By: #### 2 5508, 32195, 48187, 36867, 86271 #### [facility] [address] [facility]. [address] PROTHROMBIN TIMEon 1 INR Coag (PPP) [Relative time] 1.12 {INR} Normal 0.91-1.16 [facility] Comment on above: Order Comment: No: D o not add to previous draw Result Comment: ACCC P RECOMMENDED INR FOR WARFARIN THERAPY ------- ------- CONDITION INR PROPHYLAXIS OF VENOUS THROMBOSIS 2-3 (HIGH-RISK SURGERY) TREATMENT OF VENOUS THROMBOSIS 2-3 TREATMENT OF PULMONARY EMBOLISM 2-3 PREVENTION OF SYSTEMIC EMBOLISM: 2-3 ACUTE MYOCARDIAL INFARCTION TISSUE HEART VALVES VALVULAR HEART DISEASE ATRIAL FIBRILLATION RECURRENT SYSTEMIC EMBOLISM MECHANICAL HEART VALVE 2.5-3.5 FROM: ORAL ANTICOAGULANTS. MECHANISM OF ACTION, CLINICAL EFFECTIVENESS, AND OPTIMAL THERAPEUTIC RANGE. CHEST 1995;108:231S-246S. Performed By: #### 5 6101 ####[facility] [facility].[address] PT Coag (PPP) [Time] 14.4 s Normal 12.3-14.8 [facility] Comment on above: Order Comment: No: D o not add to previous draw Result Comment: ALL RESULTS MUST BE INTERPRETED WITH RESPECT TO BLOOD DRAWING ARTIFACT OR DILUTION ERROR OF ANTICOAGULANT AT THE TIME OF SAMPLING. Performed By: #### 5 6101 ####[facility] [facility].[address] CBC W/DIFFon 12-01-2020 ABS IMM GRANS 0.1 10*3/uL Normal 0.0-0.2 [facility] Comment on above: Performed By: #### 6 1405 #### [facility] [address] [place] [address], [facility] ABS NEUTROPHILS 12.0 10*3/uL High 1.6-7.6 [facility] Comment on above: Performed By: #### 6 1405 #### [facility] [address] [place] [address], [facility] Basophils (Bld) [#/Vol] 0.1 10*3/uL Normal 0.0-0.2 [facility] Comment on above: Performed By: #### 6 1405 #### [facility] [address] [place] [address], [facility] Basophils/100 WBC (Bld) 0.6 % Normal 0.0-1.0 [facility] Comment on above: Performed By: #### 6 1405 #### [facility] [address] [place] [address], [facility] Eosinophils (Bld) [#/Vol] 0.1 10*3/uL Normal 0.0-0.5 [facility] Comment on above: Performed By: #### 6 1405 #### [facility] [address] [place] [address], [facility] Eosinophils/100 WBC (Bld) 0.7 % Normal 0.0-6.0 [facility] Comment on above: Performed By: #### 6 1405 #### [facility] [address] [place] [address], [facility] Erythrocyte distribution width (RBC) [Ratio] 14.7 % Normal 11.5-15.0 [facility] Comment on above: Performed By: #### 6 1405 #### [facility] [address] Hematocrit (Bld) [Volume fraction] 47.3 % Normal 39.0-50.0 [facility] Comment on above: Performed By: #### 6 1405 #### [facility] [address] [facility]. [address] Hemoglobin (Bld) [Mass/Vol] 15.5 g/dL Normal 13.0-17.0 [facility] Comment on above: Performed By: #### 6 1405 #### [facility] [address] IMMATURE GRANS 0.7 % Normal 0.0-1.0 [facility] Comment on above: Performed By: #### 6 1405 #### [facility] [address] Lymphocytes (Bld) [#/Vol] 0.6 10*3/uL Low 1.2-4.0 [facility] Comment on above: Performed By: #### 6 1405 #### [facility] [address] Lymphocytes/100 WBC (Bld) 4.3 % Low 20.0-45.0 [facility] Comment on above: Performed By: #### 6 1405 #### [facility] [address] [facility]. [address] MCH (RBC) [Entitic mass] 31.0 pg Normal 27.0-33.0 [facility] Comment on above: Performed By: #### 6 1405 #### [facility] [address] [place] [address], [facility] MCHC (RBC) [Mass/Vol] 32.8 g/dL Normal 32.0-35.0 [facility] Comment on above: Performed By: #### 6 1405 #### [facility] [address] [place] [address], [facility] MCV (RBC) [Entitic vol] 94.6 fL Normal 82.0-98.0 [facility] Comment on above: Performed By: #### 6 1405 #### [facility] [address] [place] [address], [facility] Monocytes (Bld) [#/Vol] 1.0 10*3/uL Normal 0.1-1.0 [facility] Comment on above: Performed By: #### 6 1405 #### [facility] [address] [place] [address], [facility] MONOS 7.3 % Normal 5.0-12.0 [facility] Comment on above: Performed By: #### 6 1405 #### [facility] [address] [place] [address], [facility] Neutrophils/100 WBC (Bld) 86.4 % High 40.0-72.0 [facility] Comment on above: Performed By: #### 6 1405 #### [facility] [address] [facility] [place] [address], [facility] Nucleated RBC/100 WBC (Bld) [Ratio] 0 % Normal 0-0 [facility] Comment on above: Performed By: #### 6 1405 #### [facility] [address] [place] [address], [facility] PLAT CNT 289 10*3/uL Normal 150-400 [facility] Comment on above: Performed By: #### 6 1405 #### [facility] [address] [place] [address], [place] RBC (Bld) [#/Vol] 5.00 10*6/uL Normal 4.20-5.70 [facility] Comment on above: Performed By: #### 6 1405 #### [facility] [address] [place] [address], [facility] WBC (Bld) [#/Vol] 13.82 10*3/uL High 4.00-10.60 [facility] Comment on above: Performed By: #### 6 1405 #### [facility] [address] [place] [address], [facility] COMP METABOLIC PANELon 12-01 Albumin [Mass/Vol] 4.7 g/dL Normal 3.5-5.7 [facility] Comment on above: Performed By: #### 2 5508, 82772, 62984, 21725, 71141 #### [facility] [address] [place] [address], [place] ALKALINE PHOSPH 73 IU/L Normal 34-104 [facility] Comment on above: Performed By: #### 2 5508, 76583, 69838, 45857, 55098 #### [facility] [address] [place] [address], [place] ALT [Catalytic activity/Vol] 27 U/L Normal 7-52 [facility] Comment on above: Performed By: #### 2 5508, 52364, 67102, 55216, 81416 #### [facility] [address] [place] [address], [place] AST [Catalytic activity/Vol] 21 U/L Normal 13-39 [facility] Comment on above: Performed By: #### 2 5508, 55049, 48728, 02095, 09074 #### [facility] [address] [place] [address], [place] Bilirubin [Mass/Vol] 0.6 mg/dL Normal 0.3-1.0 [facility] Comment on above: Performed By: #### 2 5508, 82044, 90696, 81834, 30756 #### [facility] [address] [place] [address], [place] Calcium [Mass/Vol] 9.9 mg/dL Normal 8.6-10.3 [facility] Comment on above: Performed By: #### 2 5508, 89470, 79748, 66348, 40118 #### [facility] [address] [place] [address], [facility] Chloride [Moles/Vol] 104 mmol/L Normal 98-107 [facility] Comment on above: Performed By: #### 2 5508, 49467, 73263, 91495, 02255 #### [facility] [address] [place] [address], [place] CO2 [Moles/Vol] 25 mmol/L Normal 21-31 [facility] Comment on above: Performed By: #### 2 5508, 18103, 49265, 71196, 50582 #### [facility] [address] [place] [address], [facility] Creatinine [Mass/Vol] 1.40 mg/dL High 0.70-1.30 [facility] Comment on above: Performed By: #### 2 5508, 72888, 23041, 93090, 44734 #### [facility] [address] [place] [address], [facility] eGFR- non- 52 ml/min/1.73sq m Abnormal >60 [facility] Comment on above: Performed By: #### 2 5508, 98049, 27504, 47910, 84204 #### [facility] [address] [place] [address], [facility] GFR/1.73 sq M.predicted among blacks MDRD (S/P/Bld) [Vol rate/Area] mL/min/{1.73_m2} Normal >60 [facility] Comment on above: Performed By: #### 2 5508, 64437, 57467, 80603, 35284 #### [facility] [address] [place] [address], [facility] Glucose [Mass/Vol] 133 mg/dL High 70-100 [facility] Comment on above: Performed By: #### 2 5508, 80655, 46825, 83703, 90157 #### [facility] [address] [place] [address], [facility] Potassium [Moles/Vol] 4.8 mmol/L Normal 3.5-5.1 [facility] Comment on above: Performed By: #### 2 5508, 19508, 86169, 54163, 52144 #### [facility] [address] [place] [address], [place] Protein [Mass/Vol] 7.1 g/dL Normal 6.0-8.3 [facility] Comment on above: Performed By: #### 2 5508, 11041, 95506, 76702, 38414 #### [facility] [address] [place] [address], [facility] Sodium [Moles/Vol] 137 mmol/L Normal 136-145 [facility] Comment on above: Performed By: #### 2 5508, 22830, 88360, 05921, 04898 #### [facility] [address] [place] [address], [place] Urea nitrogen [Mass/Vol] 19 mg/dL Normal 7-25 [facility] Comment on above: Performed By: #### 2 5508, 65843, 07523, 13157, 51715 #### [facility] [address] [facility] [place] [address], [facility] CT ABDOMEN AND PELVIS WO CON TRASTon 12-01-2020 CT ABDOMEN AND PELVIS WO CONTRAST [facility] Department of Radiology [address] [place] [id number] ===== Patient Name: VISHAL DUKE : 1960 Sex: M Age: Race: White Pt. Location: [facility] Patient Status: E Ordered Date: 12/01/2020 9:30:00 AM Completed Date: 12/01/2020 11:06 AM Requesting Provider: DERICK VIDAL Attending Provider: DERICK VIDAL Report Copy To: Signs & Symptoms: Abdominal Pain(specify) History: See Comments Comments: Kidney Abnormalites Exam: CT ABDOMEN AND PELVIS WO CONTRAST ===== CT ABDOMEN AND PELVIS WITHOUT IV CONTRAST [...] Otherwise no change in appearance of the [place] kidneys. No evidence of cyst rupture. Right lower quadrant transplant kidney, no stone or collecting system dilatation. No contour deforming renal lesion of the transplant kidney. GI TRACT: No dilatation or wall thickening. Appendix is normal. PELVIC ORGANS/BLADDER: Unremarkable. PERITONEUM/RETROPERITON EUM: No free air or fluid. LYMPH NODES: [...] achievable. Electronically signed: José Herman. Transcribed by: [email or web address], User Resident: Electronically Signed by: JOSÉ HERMAN @ 12/01/2020 11:45 AM Normal [facility] Comment on above: Order Comment: No: D o not add to previous draw CV'D BY IMM LAB AT 1240 LIPASE BLOODon 12-01-2020 LIPASE 40 Units/L Normal - [facility] Comment on above: Performed By: #### 2 5508, 79732, 45757, 58205, 97991 #### [facility] [address] [place] [address], [facility] URINALYSIS REFLEXon 12-02-19 21 Appearance (U) SL CLOUDY Abnormal CLEAR [facility] Comment on above: Order Comment: Yes: Add to Previous draw if able Performed By: #### 2 5508, 40239, 19517, 67115, 42664 #### [facility] [address] [place] [address], [place] Bilirubin Ql (U) Negative Normal NEGATIVE [facility] Comment on above: Order Comment: Yes: Add to Previous draw if able Performed By: #### 2 5508, 03640, 22974, 77232, 72716 #### [facility] [address] [place] [address], [place] Color (U) TINO Abnormal YELLOW [facility] Comment on above: Order Comment: Yes: Add to Previous draw if able Performed By: #### 2 5508, 84227, 81165, 02616, 60142 #### [facility] [address] [place] [id number], [facility] EPIS NONE SEEN Normal FEW,OCC,NONE SEEN [facility] Comment on above: Order Comment: Yes: Add to Previous draw if able Performed By: #### 2 5508, 49317, 97329, 40651, 16362 #### [facility] [address] [place] [address], [place] Glucose Ql (U) Negative Normal NEGATIVE [facility] Comment on above: Order Comment: Yes: Add to Previous draw if able Performed By: #### 2 5508, 21420, 39196, 54446, 89509 #### [facility] [address] [place] [address], [facility] Hemoglobin Ql (U) Negative Normal NEGATIVE [facility] Comment on above: Order Comment: Yes: Add to Previous draw if able Performed By: #### 2 5508, 97045, 28038, 42390, 61111 #### [facility] [address] [place] [address], [place] KETONE Negative Normal NEGATIVE [facility] Comment on above: Order Comment: Yes: Add to Previous draw if able Performed By: #### 2 5508, 01217, 12165, 07964, 91686 #### [facility] [address] [place] [address], [place] LE[place] MARIA A Negative Normal NEGATIVE [facility] Comment on above: Order Comment: Yes: Add to Previous draw if able Performed By: #### 2 5508, 84050, 03979, 79890, 73589 #### [facility] [address] [place] [address], [place] MUCUS THREADS MOD Abnormal NONE SEEN [facility] Comment on above: Order Comment: Yes: Add to Previous draw if able Performed By: #### 2 5508, 79655, 19626, 12872, 98288 #### [facility] [address] [place] [address], [facility] Nitrite Ql (U) Negative Normal NEGATIVE [facility] Comment on above: Order Comment: Yes: Add to Previous draw if able Performed By: #### 2 5508, 27847, 55291, 19545, 13302 #### [facility] [address] [place] [address], [facility] pH (U) 5.0 [pH] Normal 5.0-8.0 [facility] Comment on above: Order Comment: Yes: Add to Previous draw if able Performed By: #### 2 5508, 42956, 40256, 95925, 92631 #### [facility] [address] [place] [address], [facility] Protein Ql (U) 30 mg/dL Abnormal NEGATIVE [facility] Comment on above: Order Comment: Yes: Add to Previous draw if able Performed By: #### 2 5508, 84727, 26086, 28955, 04385 #### [facility] [address] [facility] [address] RBC 0-2 Abnormal NONE SEEN [facility] Comment on above: Order Comment: Yes: Add to Previous draw if able Performed By: #### 2 5508, 74672, 94835, 80478, 10444 #### [facility] [address] [facility] [place] [address], [facility] SPEC GRAV 1.026 High 1.015-1.020 [facility] Comment on above: Order Comment: Yes: Add to Previous draw if able Performed By: #### 2 5508, 49723, 20333, 61680, 85728 #### [facility] [address] [place] [address], [facility] WBC UA 0-2 Abnormal NONE SEEN [facility] Comment on above: Order Comment: Yes: Add to Previous draw if able Performed By: #### 2 5508, 26078, 25073, 06103, 04318 #### [facility] [address] Pulmonary Functionon 021 Pulmonary Function MR #: [id number] [facility] PT. Name: Vishal Duke Date: 11/27/2020 [...] Syed MD Date Trans: 11/29/2020 01:09 P/ [id number] cc: Rosa M Gonzales M.D. [address] [facility] [address] Normal [facility] ARTERIAL BLOOD GAS W/COOXon 11-27-2020 BASE EXCESS 3 mmol/L Normal -2-3 [facility] Comment on above: Performed By: #### 2 5508, 73337, 63047, 86869, 18385 #### [facility] [address] [place] [address], [place] COHB 1.5 % Normal 0.0-1.5 [facility] Comment on above: Performed By: #### 2 5508, 76167, 13327, 28238, 76727 #### [facility] [address] [place] [address], [place] [employer] ROOM AIR Normal [facility] Comment on above: Performed By: #### 2 5508, 13862, 20601, 94690, 07180 #### [facility] [address] [place] [address], [place] FIO2 0 % Normal [facility] Comment on above: Performed By: #### 2 5508, 83863, 73948, 46826, 11870 #### [facility] [address] [place] [address], [place] HCO3 (Bld) [Moles/Vol] 26 mmol/L Normal 21-28 [facility] Comment on above: Performed By: #### 2 5508, 71135, 93376, 21297, 96543 #### [facility] [address] [place] [address], [place] METHB 1.2 % Normal 0.0-1.5 [facility] Comment on above: Performed By: #### 2 5508, 77825, 33287, 45016, 80482 #### [facility] [address] [place] [address], [place] Oxygen (Bld) [Partial pressure] 93 mm[Hg] Normal 83-108 [facility] Comment on above: Performed By: #### 2 5508, 20839, 29075, 91548, 33450 #### [facility] [address] [place] [address], [facility] Oxygen saturation in Blood 95.6 % Normal 94.0-97.0 [facility] Comment on above: Performed By: #### 2 5508, 76623, 68169, 84536, 58125 #### [facility] [address] [place] [address], [facility] PCO2 35 mmHg Normal 35-45 [facility] Comment on above: Performed By: #### 2 5508, 83670, 36247, 57028, 36014 #### [facility] [address] [place] [address], [facility] pH (Bld) 7.48 [pH] High 7.35-7.45 [facility] Comment on above: Performed By: #### 2 5508, 82805, 03977, 40646, 06295 #### [facility] [address] [place] [address], [facility] THB 15.4 g/dL Normal 12.0-16.3 [facility] Comment on above: Performed By: #### 2 5508, 45341, 01378, 74735, 51166 #### [facility] [address] [place] [address], [facility] CREATININE BLOODon 1 Creatinine [Mass/Vol] 1.10 mg/dL Normal 0.70-1.30 [facility] Comment on above: Order Comment: No: D o not add to previous draw Performed By: #### 2 5508, 39917, 91216, 51371, 45330 #### [facility] [address] [place] [address], [facility] GFR/1.73 sq M.predicted among blacks MDRD (S/P/Bld) [Vol rate/Area] mL/min/{1.73_m2} Normal >60 [facility] Comment on above: Order Comment: No: D o not add to previous draw Performed By: #### 2 5508, 25217, 50694, 24205, 00433 #### [facility] [address] [place] [address], [facility] GFR/1.73 sq M.predicted among non-blacks MDRD (S/P/Bld) [Vol rate/Area] mL/min/{1.73_m2} Normal >60 [facility] Comment on above: Order Comment: No: D o not add to previous draw Performed By: #### 2 5508, 62322, 18635, 53575, 61712 #### [facility] [address] [place] [address], [facility] Cardiovascular Lab Reporton 10-29-2020 Cardiovascular Lab Report [facility] Patient Name: [facility] Vishal Medeiros MR #: [id number] Department of Physician: Domo Mejia M.D. Division of Service Date: 10/29/2020 Cardiology Birthdate: 1960 Adult Cardiovascular Room #: 3AB [id number] [facility] [address] [address] Cardiovascular Laboratory Report FINAL IMPRESSIONS: 1. Severe [...] daily for minimum of 6 months preferably jail. 6. Will consider elective revascularization of the right coronary artery should the patient continue to experience significant exertional angina; this will be a high risk procedure given tortuosity, calcification and ectasia. 7. Follow up with Dr. Chester in the [place] office in the next 1 to 2 [...] artery, failed attempt at deployment of a 6-Dominican MynxGrip closure device. METHODS: After risks, benefits, and alternatives were explained, written informed consent was obtained. The patient was prepped and draped in usual sterile fashion over both groins. Using 1% lidocaine solution, local infiltration anesthesia was achieved. Using a micropuncture kit access to the right common femoral artery was obtained. A 6-Dominican x 11 cm sheath was inserted without difficulty. Baseline femoral angiography was performed. Bilateral selective coronary angiography was performed using JL4 and JR4 catheters. Angiography of internal mammary artery graft was performed using a 6-Dominican IM catheter. Limited angiography of the left subclavian was performed after retracting the catheter into the artery. After reviewing the images, it was elected to proceed with an interventional procedure. A 6-Dominican XB3.5 guide catheter was advanced over J-wire [...] pressure to achieve optimal hemostasis once a 6-Dominican MynxGrip closure device failed to deploy. Overall, [...] mammar (more content not included)... Normal [facility] BASIC METABOLIC PANELon 05-0 -2020 Calcium [Mass/Vol] 8.1 mg/dL Low 8.6-10.3 [facility] Comment on above: Order Comment: Yes: Add to Previous draw if able Performed By: #### 2 5508, 68910, 66002, 26977, 91158 #### [facility] [address] [place] [address], [place] Chloride [Moles/Vol] 103 mmol/L Normal 98-107 [facility] Comment on above: Order Comment: Yes: Add to Previous draw if able Performed By: #### 2 5508, 37644, 26801, 95840, 09092 #### [facility] [address] [place] [address], [place] CO2 [Moles/Vol] 25 mmol/L Normal 21-31 [facility] Comment on above: Order Comment: Yes: Add to Previous draw if able Performed By: #### 2 5508, 68648, 05070, 43949, 83622 #### [facility] [address] [place] [address], [place] Creatinine [Mass/Vol] 0.88 mg/dL Normal 0.70-1.30 [facility] Comment on above: Order Comment: Yes: Add to Previous draw if able Performed By: #### 2 5508, 13047, 31850, 86266, 63347 #### [facility] [address] [place] [address], [place] GFR/1.73 sq M.predicted among blacks MDRD (S/P/Bld) [Vol rate/Area] mL/min/{1.73_m2} Normal >60 [facility] Comment on above: Order Comment: Yes: Add to Previous draw if able Performed By: #### 2 5508, 18072, 92315, 08164, 58634 #### [facility] [address] [place] [address], [facility] GFR/1.73 sq M.predicted among non-blacks MDRD (S/P/Bld) [Vol rate/Area] mL/min/{1.73_m2} Normal >60 [facility] Comment on above: Order Comment: Yes: Add to Previous draw if able Performed By: #### 2 5508, 27691, 70860, 78948, 42342 #### [facility] [address] [place] [address], [place] Glucose [Mass/Vol] 119 mg/dL High 70-100 [facility] Comment on above: Order Comment: Yes: Add to Previous draw if able Performed By: #### 2 5508, 01226, 11965, 23610, 81158 #### [facility] [address] [place] [address], [place] Potassium [Moles/Vol] 3.6 mmol/L Normal 3.5-5.1 [facility] Comment on above: Order Comment: Yes: Add to Previous draw if able Performed By: #### 2 5508, 64970, 44569, 99412, 27903 #### [facility] [address] [place] [address], [place] Sodium [Moles/Vol] 133 mmol/L Low 136-145 [facility] Comment on above: Order Comment: Yes: Add to Previous draw if able Performed By: #### 2 5508, 17952, 41908, 79284, 81400 #### [facility] [address] [place] [address], [facility] Urea nitrogen [Mass/Vol] 17 mg/dL Normal 7-25 [facility] Comment on above: Order Comment: Yes: Add to Previous draw if able Performed By: #### 2 5508, 68746, 62047, 90301, 58020 #### [facility] [address] [place] [address], [facility] CBC COMPLETE BLOOD COUNTon - Erythrocyte distribution width (RBC) [Ratio] 13.3 % Normal 11.5-15.0 [facility] Comment on above: Order Comment: No: D o not add to previous draw Performed By: #### 6 1405 #### [facility] [address] [place] [address], [facility] Hematocrit (Bld) [Volume fraction] 47.6 % Normal 39.0-50.0 [facility] Comment on above: Order Comment: No: D o not add to previous draw Performed By: #### 6 1405 #### [facility] [address] [place] [address], [facility] Hemoglobin (Bld) [Mass/Vol] 15.9 g/dL Normal 13.0-17.0 [facility] Comment on above: Order Comment: No: D o not add to previous draw Performed By: #### 6 1405 #### [facility] [address] [place] [address], [facility] MCH (RBC) [Entitic mass] 29.1 pg Normal 27.0-33.0 [facility] Comment on above: Order Comment: No: D o not add to previous draw Performed By: #### 6 1405 #### [facility] [address] [place] [address], [facility] MCHC (RBC) [Mass/Vol] 33.4 g/dL Normal 32.0-35.0 [facility] Comment on above: Order Comment: No: D o not add to previous draw Performed By: #### 6 1405 #### [facility] [address] [place] [address], [facility] MCV (RBC) [Entitic vol] 87.2 fL Normal 82.0-98.0 [facility] Comment on above: Order Comment: No: D o not add to previous draw Performed By: #### 6 1405 #### [facility] [address] [facility] [place] [address], [facility] Nucleated RBC/100 WBC (Bld) [Ratio] 0 % Normal 0-0 [facility] Comment on above: Order Comment: No: D o not add to previous draw Performed By: #### 6 1405 #### [facility] [address] [place] [address], [facility] PLAT CNT 306 10*3/uL Normal 150-400 [facility] Comment on above: Order Comment: No: D o not add to previous draw Performed By: #### 6 1405 #### [facility] [address] [facility] [place] [address], [facility] RBC (Bld) [#/Vol] 5.46 10*6/uL Normal 4.20-5.70 [facility] Comment on above: Order Comment: No: D o not add to previous draw Performed By: #### 6 1405 #### [facility] [address] [facility] [place] [address], [facility] WBC (Bld) [#/Vol] 10.07 10*3/uL Normal 4.00-10.60 [facility] Comment on above: Order Comment: No: D o not add to previous draw Performed By: #### 6 1405 #### [facility] [address] PORTABLE CHEST 1 VIEWon PORTABLE CHEST 1 VIEW [facility] Department of Radiology [address] [place] [address] ===== Patient Name: VISHAL DUKE : 1960 Sex: M Age: Race: White Pt. Location: [id number] Patient Status: I Ordered Date: 08/19/2020 6:00:00 AM Completed Date: 08/19/2020 09:01 AM Requesting Provider: MARY BANKS Attending Provider: JUAN FERREIRA Report Copy To: Signs & Symptoms: O2 Desaturation History: Comments: Aspiration Exam: PORTABLE CHEST 1 VIEW ===== PORTABLE CHEST 1 VIEW 08/19/2020 9:01 AM [...] right. Electronically signed: Dariela Vincent. Transcribed by: [email or web address], User Resident: Electronically Signed by: DARIELA VINCENT @ 08/19/2020 10:20 AM Normal [facility] Comment on above: Order Comment: No: D o not add to previous draw CV'D BY [facility] AT 1240 TACROLIMUSon 08-19-2020 Tacrolimus (Bld) [Mass/Vol] 8.5 ng/mL Normal 5.0-20.0 [facility] Comment on above: Order Comment: No: D o not add to previous draw Result Comment: The [employer] Tacrolimus assay is a delayed one-step immunoassay for the quantitative determination of tacrolimus in human whole blood using the chemiluminescent microparticle immunoassay (CMIA) technology with flexible assay protocols, referred to as Chemiflex. Performed By: #### 2 5508, 33554, 30036, 41599, 35373 #### [facility] [address] [place] [address], [facility] BASIC METABOLIC PANELon Calcium [Mass/Vol] 8.8 mg/dL Normal 8.6-10.3 [facility] Comment on above: Order Comment: No: D o not add to previous draw Pt in bath room askme to come back Performed By: #### 3 5200 #### [facility] [address] [place] [address], [place] Chloride [Moles/Vol] 100 mmol/L Normal 98-107 [facility] Comment on above: Order Comment: No: D o not add to previous draw Pt in bath room askme to come back Performed By: #### 3 5200 #### [facility] [address] [place] [address], [place] CO2 [Moles/Vol] 28 mmol/L Normal 21-31 [facility] Comment on above: Order Comment: No: D o not add to previous draw Pt in bath room askme to come back Performed By: #### 3 5200 #### [facility] [address] [place] [address], [place] Creatinine [Mass/Vol] 0.87 mg/dL Normal 0.70-1.30 [facility] Comment on above: Order Comment: No: D o not add to previous draw Pt in bath room askme to come back Performed By: #### 3 5200 #### [facility] [address] [place] [address], [place] GFR/1.73 sq M.predicted among blacks MDRD (S/P/Bld) [Vol rate/Area] mL/min/{1.73_m2} Normal >60 [facility] Comment on above: Order Comment: No: D o not add to previous draw Pt in bath room askme to come back Performed By: #### 3 5200 #### [facility] [address] [place] [address], [place] GFR/1.73 sq M.predicted among non-blacks MDRD (S/P/Bld) [Vol rate/Area] mL/min/{1.73_m2} Normal >60 [facility] Comment on above: Order Comment: No: D o not add to previous draw Pt in bath room askme to come back Performed By: #### 3 5200 #### [facility] [address] [place] [address], [facility] Glucose [Mass/Vol] 110 mg/dL High 70-100 [facility] Comment on above: Order Comment: No: D o not add to previous draw Pt in bath room askme to come back Performed By: #### 3 5200 #### [facility] [address] [place] [address], [facility] Potassium [Moles/Vol] 3.7 mmol/L Normal 3.5-5.1 [facility] Comment on above: Order Comment: No: D o not add to previous draw Pt in bath room askme to come back Performed By: #### 3 5200 #### [facility] [address] [place] [address], [place] Sodium [Moles/Vol] 137 mmol/L Normal 136-145 [facility] Comment on above: Order Comment: No: D o not add to previous draw Pt in bath room askme to come back Performed By: #### 3 5200 #### [facility] [address] Urea nitrogen [Mass/Vol] 18 mg/dL Normal 7-25 [facility] Comment on above: Order Comment: No: D o not add to previous draw Pt in bath room askme to come back Performed By: #### 3 5200 #### [facility] [address] [facility] [place] [address], [facility] TACROLIMUSon 08-17-2020 Tacrolimus (Bld) [Mass/Vol] 4.0 ng/mL Low 5.0-20.0 [facility] Comment on above: Order Comment: Unkno wn Result Comment: The [employer] Tacrolimus assay is a delayed one-step immunoassay for the quantitative determination of tacrolimus in human whole blood using the chemiluminescent microparticle immunoassay (CMIA) technology with flexible assay protocols, referred to as Chemiflex. Performed By: #### 2 5508, 64656, 71528, 86898, 12749 #### [facility] [address] BASIC METABOLIC PANELon 05-0 Calcium [Mass/Vol] 8.3 mg/dL Low 8.6-10.3 [facility] Comment on above: Order Comment: Yes: Add to Previous draw if able Performed By: #### 2 5508, 51137, 35853, 58725, 50280 #### [facility] [address] [facility] [place] [address], [facility] Chloride [Moles/Vol] 104 mmol/L Normal 98-107 [facility] Comment on above: Order Comment: Yes: Add to Previous draw if able Performed By: #### 2 5508, 10180, 87532, 58674, 06179 #### [facility] [address] [facility] [place] [address], [facility] CO2 [Moles/Vol] 24 mmol/L Normal 21-31 [facility] Comment on above: Order Comment: Yes: Add to Previous draw if able Performed By: #### 2 5508, 23005, 19843, 97478, 92716 #### [facility] [address] [place] [address], [place] Creatinine [Mass/Vol] 0.82 mg/dL Normal 0.70-1.30 [facility] Comment on above: Order Comment: Yes: Add to Previous draw if able Performed By: #### 2 5508, 93988, 51093, 43419, 72967 #### [facility] [address] [place] [address], [place] GFR/1.73 sq M.predicted among blacks MDRD (S/P/Bld) [Vol rate/Area] mL/min/{1.73_m2} Normal >60 [facility] Comment on above: Order Comment: Yes: Add to Previous draw if able Performed By: #### 2 5508, 67037, 28114, 37505, 04765 #### [facility] [address] [place] [address], [facility] GFR/1.73 sq M.predicted among non-blacks MDRD (S/P/Bld) [Vol rate/Area] mL/min/{1.73_m2} Normal >60 [facility] Comment on above: Order Comment: Yes: Add to Previous draw if able Performed By: #### 2 5508, 63706, 83848, 31390, 31603 #### [facility] [address] [place] [address], [place] Glucose [Mass/Vol] 114 mg/dL High 70-100 [facility] Comment on above: Order Comment: Yes: Add to Previous draw if able Performed By: #### 2 5508, 07481, 54252, 70297, 42541 #### [facility] [address] [place] [address], [place] Potassium [Moles/Vol] 4.1 mmol/L Normal 3.5-5.1 [facility] Comment on above: Order Comment: Yes: Add to Previous draw if able Performed By: #### 2 5508, 05889, 45768, 73906, 76634 #### [facility] [address] Sodium [Moles/Vol] 135 mmol/L Low 136-145 [facility] Comment on above: Order Comment: Yes: Add to Previous draw if able Performed By: #### 2 5508, 05205, 83749, 46645, 00994 #### [facility] [address] [place] [address], [facility] Urea nitrogen [Mass/Vol] 24 mg/dL Normal 7-25 [facility] Comment on above: Order Comment: Yes: Add to Previous draw if able Performed By: #### 2 5508, 84410, 51358, 01354, 44646 #### [facility] [address] [place] [address], [facility] MAGNESIUM BLOODon 08-16-2020 Magnesium [Mass/Vol] 1.9 mg/dL Normal 1.9-2.7 [facility] Comment on above: Order Comment: No: D o not add to previous draw Performed By: #### 4 1000, 50622, 44476 ####[facility] [facility] [place] [place] [address], [facility] PHOSPHORUS BLOODon Phosphate [Mass/Vol] 3.1 mg/dL Normal 2.5-5.0 [facility] Comment on above: Order Comment: No: D o not add to previous draw Performed By: #### 4 1000, 91603, 51800 ####[facility] [facility] [place] [place] [address], [facility] TACROLIMUSon 08-16-2020 Tacrolimus (Bld) [Mass/Vol] 3.5 ng/mL Low 5.0-20.0 [facility] Comment on above: Order Comment: Unkno wn Result Comment: The [employer] Tacrolimus assay is a delayed one-step immunoassay for the quantitative determination of tacrolimus in human whole blood using the chemiluminescent microparticle immunoassay (CMIA) technology with flexible assay protocols, referred to as Chemiflex. Performed By: #### 2 5508, 67604, 86148, 35615, 76855 #### [facility] [address] [place] [address], [facility] C REACTIVE PROTEINon 021 CRP [Mass/Vol] 20.9 mg/L High 0.0-7.0 [facility] Comment on above: Order Comment: Yes: Add to Previous draw if able Performed By: #### 2 5508, 09771, 38489, 77290, 39719 #### [facility] [address] [place] [address], [facility] CPKon 08-15-2020 CK [Catalytic activity/Vol] 38 U/L Normal 30-223 [facility] Comment on above: Order Comment: Unkno wn Performed By: #### 2 5508, 07905, 61256, 48503, 17568 #### [facility] [address] [facility] [address] D DIMER TESTon 08-15-2020 D-DIMER TEST 2.03 mcg/mL FEU High 0.27-0.49 [facility] Comment on above: Order Comment: Yes: Add to Previous draw if able Result Comment: D-Di priscilla values of less than 0.50 ug/ml (FEU) are considered to be a negative predictor of thrombosis. However, the D-Dimer result should be used in conjunction with pretest probability and should not be used alone to diagnose a thrombotic event. Performed By: #### 2 5508, 87970, 84244, 43475, 11945 #### [facility] [address] [place] [address], [facility] FERRITINon 08-15-2020 Ferritin [Mass/Vol] 1412 ng/mL High 24-336 [facility] Comment on above: Order Comment: Unkno wn Performed By: #### 2 5508, 98931, 95786, 84114, 68652 #### [facility] [address] [place] [address], [facility] LDH BLOODon 08-15-2020 LDH 457 Units/L High 140-271 [facility] Comment on above: Order Comment: Unkno wn Performed By: #### 2 5508, 14789, 17964, 55663, 99720 #### [facility] [address] [place] [address], [place] LIVER BATTERYon 08-15-2020 Albumin [Mass/Vol] 3.1 g/dL Low 3.5-5.7 [facility] Comment on above: Order Comment: Unkno wn Performed By: #### 2 5508, 27859, 42008, 82437, 55914 #### [facility] [address] [place] [address], [place] ALKALINE PHOSPH 94 IU/L Normal 34-104 [facility] Comment on above: Order Comment: Unkno wn Performed By: #### 2 5508, 18966, 91242, 88746, 00638 #### [facility] [address] [place] [address], [place] ALT [Catalytic activity/Vol] 108 U/L High 7-52 [facility] Comment on above: Order Comment: Unkno wn Performed By: #### 2 5508, 44377, 84854, 96813, 02462 #### [facility] 3000 [place] [address], [place] AST [Catalytic activity/Vol] 54 U/L High 13-39 [facility] Comment on above: Order Comment: Unkno wn Performed By: #### 2 5508, 34716, 74284, 22006, 73412 #### [facility] [address] [place] [address], [place] Bilirubin [Mass/Vol] 0.8 mg/dL Normal 0.3-1.0 [facility] Comment on above: Order Comment: Unkno wn Performed By: #### 2 5508, 59524, 97267, 37529, 35189 #### [facility] [address] [place] [address], [place] Bilirubin.direct [Mass/Vol] 0.2 mg/dL Normal 0.0-0.2 [facility] Comment on above: Order Comment: Unkno wn Performed By: #### 2 5508, 11567, 16227, 62872, 51303 #### [facility] [address] [place] [address], [facility] Protein [Mass/Vol] 5.9 g/dL Low 6.0-8.3 [facility] Comment on above: Order Comment: Unkno wn Performed By: #### 2 5508, 29996, 42037, 25179, 26846 #### [facility] [address] [place] [address], [facility] TACROLIMUSon 08-15-2020 Tacrolimus (Bld) [Mass/Vol] 4.4 ng/mL Low 5.0-20.0 [facility] Comment on above: Order Comment: Yes: Add to Previous draw if able Result Comment: The [employer] Tacrolimus assay is a delayed one-step immunoassay for the quantitative determination of tacrolimus in human whole blood using the chemiluminescent microparticle immunoassay (CMIA) technology with flexible assay protocols, referred to as Chemiflex. Performed By: #### 2 5508, 58759, 13498, 30351, 53953 #### [facility] [address] [place] [address], [facility] BASIC METABOLIC PANELon 04-3 Calcium [Mass/Vol] 8.2 mg/dL Low 8.6-10.3 [facility] Comment on above: Order Comment: No: D o not add to previous draw Performed By: #### 2 5508, 81710, 60698, 66454, 99319 #### [facility] [address] [place] [address], [facility] Chloride [Moles/Vol] 102 mmol/L Normal 98-107 [facility] Comment on above: Order Comment: No: D o not add to previous draw Performed By: #### 2 5508, 95353, 57882, 34344, 53173 #### [facility] [address] [place] [address], [facility] CO2 [Moles/Vol] 19 mmol/L Low 21-31 [facility] Comment on above: Order Comment: No: D o not add to previous draw Performed By: #### 2 5508, 97994, 59980, 90602, 69942 #### [facility] [address] [place] [address], [place] Creatinine [Mass/Vol] 0.95 mg/dL Normal 0.70-1.30 [facility] Comment on above: Order Comment: No: D o not add to previous draw Performed By: #### 2 5508, 63530, 17380, 03094, 73177 #### [facility] [address] [place] [address], [place] GFR/1.73 sq M.predicted among blacks MDRD (S/P/Bld) [Vol rate/Area] mL/min/{1.73_m2} Normal >60 [facility] Comment on above: Order Comment: No: D o not add to previous draw Performed By: #### 2 5508, 20957, 37042, 56283, 86769 #### [facility] [address] [place] [address], [place] GFR/1.73 sq M.predicted among non-blacks MDRD (S/P/Bld) [Vol rate/Area] mL/min/{1.73_m2} Normal >60 [facility] Comment on above: Order Comment: No: D o not add to previous draw Performed By: #### 2 5508, 44452, 16196, 36117, 48642 #### [facility] [address] [place] [address], [place] Glucose [Mass/Vol] 253 mg/dL High 70-100 [facility] Comment on above: Order Comment: No: D o not add to previous draw Performed By: #### 2 5508, 79074, 38640, 25900, 38696 #### [facility] [address] [place] [address], [facility] Potassium [Moles/Vol] 4.0 mmol/L Normal 3.5-5.1 [facility] Comment on above: Order Comment: No: D o not add to previous draw Performed By: #### 2 5508, 82655, 45700, 74389, 80814 #### [facility] [address] [place] [address], [facility] Sodium [Moles/Vol] 130 mmol/L Low 136-145 [facility] Comment on above: Order Comment: No: D o not add to previous draw Performed By: #### 2 5508, 62326, 86649, 95757, 12613 #### [facility] [address] [place] [address], [facility] Urea nitrogen [Mass/Vol] 34 mg/dL High 7-25 [facility] Comment on above: Order Comment: No: D o not add to previous draw Performed By: #### 2 5508, 74156, 10300, 47711, 89718 #### [facility] [address] [place] [address], [facility] C REACTIVE PROTEINon CRP [Mass/Vol] 19.7 mg/L High 0.0-7.0 [facility] Comment on above: Order Comment: No: D o not add to previous draw Performed By: #### 6 1405 #### [facility] [address] [place] [address], [facility] COMP METABOLIC PANELon 08-14 Albumin [Mass/Vol] 3.0 g/dL Low 3.5-5.7 [facility] Comment on above: Order Comment: This order is a replacement of the rejected order with accession [id number]. Performed By: #### 2 5508, 95857, 75442, 23617, 59694 #### [facility] [address] [place] [address], [facility] ALKALINE PHOSPH 81 IU/L Normal 34-104 [facility] Comment on above: Order Comment: This order is a replacement of the rejected order with accession [id number]. Performed By: #### 2 5508, 22785, 77909, 76873, 29239 #### [facility] [address] ALT [Catalytic activity/Vol] 80 U/L High 7-52 [facility] Comment on above: Order Comment: This order is a replacement of the rejected order with accession [id number]. Performed By: #### 2 5508, 17513, 08548, 88269, 78922 #### [facility] [address] AST [Catalytic activity/Vol] 52 U/L High 13-39 [facility] Comment on above: Order Comment: This order is a replacement of the rejected order with accession [id number]. Performed By: #### 2 5508, 09099, 93228, 46019, 54799 #### [facility] [address] [place] [address], [facility] Bilirubin [Mass/Vol] 0.7 mg/dL Normal 0.3-1.0 [facility] Comment on above: Order Comment: This order is a replacement of the rejected order with accession [id number]. Performed By: #### 2 5508, 73070, 19663, 06380, 88755 #### [facility] [address] [facility] [place] [address], [facility] Calcium [Mass/Vol] 8.1 mg/dL Low 8.6-10.3 [facility] Comment on above: Order Comment: This order is a replacement of the rejected order with accession [id number]. Performed By: #### 2 5508, 15453, 28250, 57628, 41219 #### [facility] [address] [place] [address], [facility] Chloride [Moles/Vol] 102 mmol/L Normal 98-107 [facility] Comment on above: Order Comment: This order is a replacement of the rejected order with accession [id number]. Performed By: #### 2 5508, 26541, 36996, 56345, 12165 #### [facility] [address] [place] [address], [facility] CO2 [Moles/Vol] 24 mmol/L Normal 21-31 [facility] Comment on above: Order Comment: This order is a replacement of the rejected order with accession [id number]. Performed By: #### 2 5508, 78560, 49757, 58305, 49874 #### [facility] [address] [place] [address], [facility] Creatinine [Mass/Vol] 0.98 mg/dL Normal 0.70-1.30 [facility] Comment on above: Order Comment: This order is a replacement of the rejected order with accession [id number]. Performed By: #### 2 5508, 88118, 59691, 22148, 44369 #### [facility] [address] [place] [address], [place] GFR/1.73 sq M.predicted among blacks MDRD (S/P/Bld) [Vol rate/Area] mL/min/{1.73_m2} Normal >60 [facility] Comment on above: Order Comment: This order is a replacement of the rejected order with accession [id number]. Performed By: #### 2 5508, 90964, 00143, 43976, 15623 #### [facility] [address] [place] [address], [place] GFR/1.73 sq M.predicted among non-blacks MDRD (S/P/Bld) [Vol rate/Area] mL/min/{1.73_m2} Normal >60 [facility] Comment on above: Order Comment: This order is a replacement of the rejected order with accession [id number]. Performed By: #### 2 5508, 41285, 30153, 07059, 55743 #### [facility] [address] [place] [address], [place] Glucose [Mass/Vol] 141 mg/dL High 70-100 [facility] Comment on above: Order Comment: This order is a replacement of the rejected order with accession [id number]. Performed By: #### 2 5508, 12452, 77987, 82711, 00560 #### [facility] [address] [place] [address], [facility] Potassium [Moles/Vol] 4.2 mmol/L Normal 3.5-5.1 [facility] Comment on above: Order Comment: This order is a replacement of the rejected order with accession [id number]. Performed By: #### 2 5508, 72527, 52503, 56204, 66469 #### [facility] [address] [place] [address], [facility] Protein [Mass/Vol] 5.6 g/dL Low 6.0-8.3 [facility] Comment on above: Order Comment: This order is a replacement of the rejected order with accession [id number]. Performed By: #### 2 5508, 13725, 70477, 34982, 13571 #### [facility] [address] [place] [address], [facility] Sodium [Moles/Vol] 132 mmol/L Low 136-145 [facility] Comment on above: Order Comment: This order is a replacement of the rejected order with accession [id number]. Performed By: #### 2 5508, 20907, 67166, 13353, 81733 #### [facility] [address] [place] [address], [place] Urea nitrogen [Mass/Vol] 32 mg/dL High 7-25 [facility] Comment on above: Order Comment: This order is a replacement of the rejected order with accession [id number]. Performed By: #### 2 5508, 23468, 70977, 24776, 08781 #### [facility] [address] [place] [address], [facility] CPKon 08-14-2020 CK [Catalytic activity/Vol] 47 U/L Normal 30-223 [facility] Comment on above: Order Comment: No: D o not add to previous draw Performed By: #### 2 5508, 12670, 69159, 02425, 53441 #### [facility] [address] D DIMER TESTon 08-14-2020 D-DIMER TEST 2.41 mcg/mL FEU High 0.27-0.49 [facility] Comment on above: Order Comment: No: D o not add to previous draw Result Comment: D-Di priscilla values of less than 0.50 ug/ml (FEU) are considered to be a negative predictor of thrombosis. However, the D-Dimer result should be used in conjunction with pretest probability and should not be used alone to diagnose a thrombotic event. Performed By: #### 6 1405 #### [facility] [address] [place] [place] [address], [facility] FERRITINon 08-14-2020 Ferritin [Mass/Vol] 836 ng/mL High 24-336 [facility] Comment on above: Order Comment: No: D o not add to previous draw Performed By: #### 2 5508, 53421, 22776, 65498, 58184 #### [facility] [address] [facility] [place] [address], [facility] LDH BLOODon 08-14-2020 LDH 310 Units/L High 140-271 [facility] Comment on above: Order Comment: No: D o not add to previous draw Performed By: #### 2 5508, 00596, 48592, 72656, 33593 #### [facility] [address] [facility] [place] [address], [facility] LIVER BATTERYon 08-14-2020 Albumin [Mass/Vol] 2.9 g/dL Low 3.5-5.7 [facility] Comment on above: Order Comment: No: D o not add to previous draw Performed By: #### 2 5508, 48487, 45556, 27413, 96786 #### [facility] [address] [place] [address], [place] ALKALINE PHOSPH 78 IU/L Normal 34-104 [facility] Comment on above: Order Comment: No: D o not add to previous draw Performed By: #### 2 5508, 25318, 96362, 47210, 69428 #### [facility] [address] [place] [address], [place] ALT [Catalytic activity/Vol] 83 U/L High 7-52 [facility] Comment on above: Order Comment: No: D o not add to previous draw Performed By: #### 2 5508, 93433, 73260, 15605, 41291 #### [facility] [address] [place] [address], [place] AST [Catalytic activity/Vol] 46 U/L High 13-39 [facility] Comment on above: Order Comment: No: D o not add to previous draw Performed By: #### 2 5508, 01036, 16817, 13990, 94414 #### [facility] [address] [place] [address], [place] Bilirubin [Mass/Vol] 0.6 mg/dL Normal 0.3-1.0 [facility] Comment on above: Order Comment: No: D o not add to previous draw Performed By: #### 2 5508, 48338, 58651, 59698, 96776 #### [facility] [address] [place] [address], [place] Bilirubin.direct [Mass/Vol] 0.2 mg/dL Normal 0.0-0.2 [facility] Comment on above: Order Comment: No: D o not add to previous draw Performed By: #### 2 5508, 24690, 26158, 28910, 96088 #### [facility] [address] [place] [address], [place] Protein [Mass/Vol] 5.3 g/dL Low 6.0-8.3 [facility] Comment on above: Order Comment: No: D o not add to previous draw Performed By: #### 2 5508, 84373, 83878, 96252, 93213 #### [facility] [address] [place] [address], [facility] OSMOLALITY BLOODon Osmolality [Osmolality] 291 mosm/kg Normal 285-305 [facility] Comment on above: Order Comment: No: D o not add to previous draw Performed By: #### 2 5508, 56817, 32180, 66687, 97570 #### [facility] [address] [place] [address], [facility] TACROLIMUSon 08-14-2020 Tacrolimus (Bld) [Mass/Vol] 9.7 ng/mL Normal 5.0-20.0 [facility] Comment on above: Order Comment: Yes: Add to Previous draw if able Result Comment: The [employer] Tacrolimus assay is a delayed one-step immunoassay for the quantitative determination of tacrolimus in human whole blood using the chemiluminescent microparticle immunoassay (CMIA) technology with flexible assay protocols, referred to as Chemiflex. Performed By: #### 2 5508, 80686, 01186, 83356, 75201 #### [facility] [address] Tacrolimus (Bld) [Mass/Vol] 5.7 ng/mL Normal 5.0-20.0 [facility] Comment on above: Order Comment: Yes: Add to Previous draw if able Result Comment: The [employer] Tacrolimus assay is a delayed one-step immunoassay for the quantitative determination of tacrolimus in human whole blood using the chemiluminescent microparticle immunoassay (CMIA) technology with flexible assay protocols, referred to as Chemiflex. Performed By: #### 2 5508, 54155, 20771, 84905, 83447 #### [facility] [address] [place] [address], [facility] COMP METABOLIC PANELon 08-12 Albumin [Mass/Vol] 3.2 g/dL Low 3.5-5.7 [facility] Comment on above: Order Comment: No: D o not add to previous draw Performed By: #### 2 5508, 57748, 57695, 96692, 88165 #### [facility] [address] [place] [address], [place] ALKALINE PHOSPH 89 IU/L Normal 34-104 [facility] Comment on above: Order Comment: No: D o not add to previous draw Performed By: #### 2 5508, 69676, 18714, 27256, 70990 #### [facility] [address] [place] [address], [place] ALT [Catalytic activity/Vol] 69 U/L High 7-52 [facility] Comment on above: Order Comment: No: D o not add to previous draw Performed By: #### 2 5508, 02624, 47019, 13519, 91683 #### [facility] [address] [place] [address], [place] AST [Catalytic activity/Vol] 54 U/L High 13-39 [facility] Comment on above: Order Comment: No: D o not add to previous draw Performed By: #### 2 5508, 26515, 76376, 97613, 24285 #### [facility] [address] [place] [address], [place] Bilirubin [Mass/Vol] 1.0 mg/dL Normal 0.3-1.0 [facility] Comment on above: Order Comment: No: D o not add to previous draw Performed By: #### 2 5508, 11124, 53315, 16137, 72798 #### [facility] [address] [place] [address], [place] Calcium [Mass/Vol] 8.8 mg/dL Normal 8.6-10.3 [facility] Comment on above: Order Comment: No: D o not add to previous draw Performed By: #### 2 5508, 58462, 14006, 24518, 53134 #### [facility] [address] [place] [address], [place] Chloride [Moles/Vol] 97 mmol/L Low 98-107 [facility] Comment on above: Order Comment: No: D o not add to previous draw Performed By: #### 2 5508, 25432, 50993, 60802, 53748 #### [facility] [address] [place] [address], [place] CO2 [Moles/Vol] 24 mmol/L Normal 21-31 [facility] Comment on above: Order Comment: No: D o not add to previous draw Performed By: #### 2 5508, 06455, 74021, 92634, 65552 #### [facility] [address] [place] [address], [place] Creatinine [Mass/Vol] 0.82 mg/dL Normal 0.70-1.30 [facility] Comment on above: Order Comment: No: D o not add to previous draw Performed By: #### 2 5508, 23945, 46519, 79292, 62220 #### [facility] [address] [place] [address], [place] GFR/1.73 sq M.predicted among blacks MDRD (S/P/Bld) [Vol rate/Area] mL/min/{1.73_m2} Normal >60 [facility] Comment on above: Order Comment: No: D o not add to previous draw Performed By: #### 2 5508, 87265, 13190, 39572, 01865 #### [facility] [address] [place] [address], [place] GFR/1.73 sq M.predicted among non-blacks MDRD (S/P/Bld) [Vol rate/Area] mL/min/{1.73_m2} Normal >60 [facility] Comment on above: Order Comment: No: D o not add to previous draw Performed By: #### 2 5508, 67444, 72548, 91595, 11680 #### [facility] [address] [place] [address], [place] Glucose [Mass/Vol] 154 mg/dL High 70-100 [facility] Comment on above: Order Comment: No: D o not add to previous draw Performed By: #### 2 5508, 57535, 53782, 13204, 51133 #### [facility] [address] [place] [address], [place] Potassium [Moles/Vol] 4.9 mmol/L Normal 3.5-5.1 [facility] Comment on above: Order Comment: No: D o not add to previous draw Performed By: #### 2 5508, 92225, 58099, 11900, 13914 #### [facility] [address] [place] [address], [place] Protein [Mass/Vol] 6.1 g/dL Normal 6.0-8.3 [facility] Comment on above: Order Comment: No: D o not add to previous draw Performed By: #### 2 5508, 38191, 10124, 63446, 23306 #### [facility] [address] [place] [address], [place] Sodium [Moles/Vol] 128 mmol/L Low 136-145 [facility] Comment on above: Order Comment: No: D o not add to previous draw Performed By: #### 2 5508, 57586, 93809, 11884, 28155 #### [facility] [address] [place] [address], [place] Urea nitrogen [Mass/Vol] 32 mg/dL High 7-25 [facility] Comment on above: Order Comment: No: D o not add to previous draw Performed By: #### 2 5508, 88133, 76662, 63861, 58035 #### [facility] [address] [place] [address], [place] OSMOLALITY URINEon 1 OSMOLALITY 857 mOsm/kg Normal 50-1400 [facility] Comment on above: Order Comment: No: D o not add to previous draw Performed By: #### 2 5508, 71722, 57807, 84016, 38799 #### [facility] [address] [place] [address], [facility] SODIUM URINE RANDOMon 2020 Sodium (U) [Moles/Vol] 51 mmol/L Normal [facility] Comment on above: Order Comment: No: D o not add to previous draw Result Comment: Ther e are no established reference values for random urine specimens Performed By: #### 2 5508, 75013, 28841, 41148, 41231 #### [facility] [address] [place] [address], [facility] TACROLIMUSon 08-12-2020 Tacrolimus (Bld) [Mass/Vol] 5.2 ng/mL Normal 5.0-20.0 [facility] Comment on above: Order Comment: Unkno wn Result Comment: The [employer] Tacrolimus assay is a delayed one-step immunoassay for the quantitative determination of tacrolimus in human whole blood using the chemiluminescent microparticle immunoassay (CMIA) technology with flexible assay protocols, referred to as Chemiflex. Performed By: #### 9 9914 ####[facility] [facility] [place] [address], [facility] BASIC METABOLIC PANELon 07-17 Calcium [Mass/Vol] 8.6 mg/dL Normal 8.6-10.3 [facility] Comment on above: Order Comment: No: D o not add to previous draw Performed By: #### 2 5508, 17105, 81162, 11015, 28593 #### [facility] [address] [place] [address], [facility] Chloride [Moles/Vol] 97 mmol/L Low 98-107 [facility] Comment on above: Order Comment: No: D o not add to previous draw Performed By: #### 2 5508, 12419, 27742, 58182, 36598 #### [facility] [address] [place] [address], [facility] CO2 [Moles/Vol] 23 mmol/L Normal 21-31 [facility] Comment on above: Order Comment: No: D o not add to previous draw Performed By: #### 2 5508, 92065, 44719, 63823, 32751 #### [facility] [address] [place] [address], [place] Creatinine [Mass/Vol] 0.82 mg/dL Normal 0.70-1.30 [facility] Comment on above: Order Comment: No: D o not add to previous draw Performed By: #### 2 5508, 35665, 01578, 15968, 34078 #### [facility] [address] [place] [address], [place] GFR/1.73 sq M.predicted among blacks MDRD (S/P/Bld) [Vol rate/Area] mL/min/{1.73_m2} Normal >60 [facility] Comment on above: Order Comment: No: D o not add to previous draw Performed By: #### 2 5508, 12892, 27578, 79482, 75816 #### [facility] [address] [place] [address], [place] GFR/1.73 sq M.predicted among non-blacks MDRD (S/P/Bld) [Vol rate/Area] mL/min/{1.73_m2} Normal >60 [facility] Comment on above: Order Comment: No: D o not add to previous draw Performed By: #### 2 5508, 12384, 32675, 31353, 09634 #### [facility] [address] [place] [address], [place] Glucose [Mass/Vol] 166 mg/dL High 70-100 [facility] Comment on above: Order Comment: No: D o not add to previous draw Performed By: #### 2 5508, 00434, 42042, 79660, 26121 #### [facility] [address] [place] [address], [place] Potassium [Moles/Vol] 4.9 mmol/L Normal 3.5-5.1 [facility] Comment on above: Order Comment: No: D o not add to previous draw Performed By: #### 2 5508, 22585, 93899, 40049, 23149 #### [facility] [address] [place] [address], [facility] Sodium [Moles/Vol] 127 mmol/L Low 136-145 [facility] Comment on above: Order Comment: No: D o not add to previous draw Performed By: #### 2 5508, 32207, 40517, 15484, 37676 #### [facility] [address] [place] [address], [facility] Urea nitrogen [Mass/Vol] 33 mg/dL High 7-25 [facility] Comment on above: Order Comment: No: D o not add to previous draw Performed By: #### 2 5508, 40443, 43642, 61138, 78532 #### [facility] [address] [place] [address], [facility] CREATININE URINE RANDOMon Creatinine (U) [Mass/Vol] 59.0 mg/dL Normal [facility] Comment on above: Order Comment: Yes: Add to Previous draw if able Result Comment: Ther e are no established reference values for random urine specimens Performed By: #### 2 5508, 69049, 01631, 08650, 63568 #### [facility] [facility] [address] [place] [address], [facility] MAGNESIUM BLOODon 08-11-2020 Magnesium [Mass/Vol] 1.7 mg/dL Low 1.9-2.7 [facility] Comment on above: Order Comment: No: D o not add to previous draw Performed By: #### 2 5508, 26815, 35782, 87202, 93894 #### [facility] [address] [place] [address], [place] SODIUM URINE RANDOMon 2020 Sodium (U) [Moles/Vol] 90 mmol/L Normal [facility] Comment on above: Order Comment: Yes: Add to Previous draw if able Result Comment: Ther e are no established reference values for random urine specimens Performed By: #### 2 5508, 87697, 83782, 54637, 67760 #### [facility] [address] [place] [address], [facility] TACROLIMUSon 08-11-2020 Tacrolimus (Bld) [Mass/Vol] 6.3 ng/mL Normal 5.0-20.0 [facility] Comment on above: Order Comment: Yes: Add to Previous draw if able Result Comment: The [employer] Tacrolimus assay is a delayed one-step immunoassay for the quantitative determination of tacrolimus in human whole blood using the chemiluminescent microparticle immunoassay (CMIA) technology with flexible assay protocols, referred to as Chemiflex. Performed By: #### 2 5508, 38607, 57218, 58515, 91651 #### [facility] [address] BASIC METABOLIC PANELon 07-17 Calcium [Mass/Vol] 8.3 mg/dL Low 8.6-10.3 [facility] Comment on above: Order Comment: Yes: Add to Previous draw if able Performed By: #### 2 5508, 45554, 02811, 16515, 27461 #### [facility] [address] [place] [address], [facility] Chloride [Moles/Vol] 102 mmol/L Normal 98-107 [facility] Comment on above: Order Comment: Yes: Add to Previous draw if able Performed By: #### 2 5508, 76076, 49935, 88507, 33443 #### [facility] [address] [place] [id number], [facility] CO2 [Moles/Vol] 20 mmol/L Low 21-31 [facility] Comment on above: Order Comment: Yes: Add to Previous draw if able Performed By: #### 2 5508, 20906, 52148, 73309, 95243 #### [facility] [address] [place] [address], [facility] Creatinine [Mass/Vol] 0.78 mg/dL Normal 0.70-1.30 [facility] Comment on above: Order Comment: Yes: Add to Previous draw if able Performed By: #### 2 5508, 24356, 19192, 39909, 25899 #### [facility] [address] [place] [address], [place] GFR/1.73 sq M.predicted among blacks MDRD (S/P/Bld) [Vol rate/Area] mL/min/{1.73_m2} Normal >60 [facility] Comment on above: Order Comment: Yes: Add to Previous draw if able Performed By: #### 2 5508, 40396, 80844, 90365, 26107 #### [facility] [address] [place] [address], [facility] GFR/1.73 sq M.predicted among non-blacks MDRD (S/P/Bld) [Vol rate/Area] mL/min/{1.73_m2} Normal >60 [facility] Comment on above: Order Comment: Yes: Add to Previous draw if able Performed By: #### 2 5508, 85187, 29233, 15119, 80204 #### [facility] [address] [place] [address], [place] Glucose [Mass/Vol] 199 mg/dL High 70-100 [facility] Comment on above: Order Comment: Yes: Add to Previous draw if able Performed By: #### 2 5508, 75739, 41813, 82651, 89250 #### [facility] [address] [place] [address], [place] Potassium [Moles/Vol] 4.9 mmol/L Normal 3.5-5.1 [facility] Comment on above: Order Comment: Yes: Add to Previous draw if able Performed By: #### 2 5508, 32151, 59646, 42704, 03999 #### [facility] [address] Sodium [Moles/Vol] 129 mmol/L Low 136-145 [facility] Comment on above: Order Comment: Yes: Add to Previous draw if able Performed By: #### 2 5508, 51764, 52073, 32598, 22749 #### [facility] [address] [place] [address], [facility] Urea nitrogen [Mass/Vol] 33 mg/dL High 7-25 [facility] Comment on above: Order Comment: Yes: Add to Previous draw if able Performed By: #### 2 5508, 14804, 43065, 26029, 56164 #### [facility] [address] [place] [address], [facility] CBC COMPLETE BLOOD COUNTon 0 08-10-2020 Erythrocyte distribution width (RBC) [Ratio] 12.9 % Normal 11.5-15.0 [facility] Comment on above: Order Comment: No: D o not add to previous draw Performed By: #### 6 1405 #### [facility] [address] [place] [address], [facility] Hematocrit (Bld) [Volume fraction] 45.9 % Normal 39.0-50.0 [facility] Comment on above: Order Comment: No: D o not add to previous draw Performed By: #### 6 1405 #### [facility] [address] [place] [address], [facility] Hemoglobin (Bld) [Mass/Vol] 15.3 g/dL Normal 13.0-17.0 [facility] Comment on above: Order Comment: No: D o not add to previous draw Performed By: #### 6 1405 #### [facility] [address] [place] [address], [facility] MCH (RBC) [Entitic mass] 29.3 pg Normal 27.0-33.0 [facility] Comment on above: Order Comment: No: D o not add to previous draw Performed By: #### 6 1405 #### [facility] [address] [place] [address], [facility] MCHC (RBC) [Mass/Vol] 33.3 g/dL Normal 32.0-35.0 [facility] Comment on above: Order Comment: No: D o not add to previous draw Performed By: #### 6 1405 #### [facility] [address] [place] [id number], [facility] MCV (RBC) [Entitic vol] 87.8 fL Normal 82.0-98.0 [facility] Comment on above: Order Comment: No: D o not add to previous draw Performed By: #### 6 1405 #### [facility] [address] [place] [address], [facility] Nucleated RBC/100 WBC (Bld) [Ratio] 0 % Normal 0-0 [facility] Comment on above: Order Comment: No: D o not add to previous draw Performed By: #### 6 1405 #### [facility] [address] [place] [address], [facility] PLAT CNT 422 10*3/uL High 150-400 [facility] Comment on above: Order Comment: No: D o not add to previous draw Performed By: #### 6 1405 #### [facility] [address] [facility] [place] [id number], [facility] RBC (Bld) [#/Vol] 5.23 10*6/uL Normal 4.20-5.70 [facility] Comment on above: Order Comment: No: D o not add to previous draw Performed By: #### 6 1405 #### [facility] [address] [place] [address], [facility] WBC (Bld) [#/Vol] 7.77 10*3/uL Normal 4.00-10.60 [facility] Comment on above: Order Comment: No: D o not add to previous draw Performed By: #### 6 1405 #### [facility] [address] [address], [facility] MAGNESIUM BLOODon 08-10-2020 Magnesium [Mass/Vol] 1.7 mg/dL Low 1.9-2.7 [facility] Comment on above: Order Comment: Yes: Add to Previous draw if able Performed By: #### 2 5508, 19351, 88715, 02666, 66080 #### [address] [address], [facility] PORTABLE CHEST 1 VIEWon 07-17 PORTABLE CHEST 1 VIEW [facility] Department of Radiology [address] [place] [id number] ===== Patient Name: VISHAL DUKE : 1960 Sex: M Age: Race: White Pt. Location: [id number] Patient Status: I Ordered Date: 08/10/2020 7:40:00 AM Completed Date: 08/10/2020 09:42 AM Requesting Provider: GIOVANA COSME Attending Provider: YOJANA TRUJILLO Report Copy To: Signs & Symptoms: O2 Desaturation History: Comments: Evaluate for Atelectasis Exam: PORTABLE CHEST 1 VIEW ===== PORTABLE CHEST 1 VIEW 08/10/2020 9:42 AM [...] pneumothorax. Electronically signed: Brett Mc. Transcribed by: [email or web address], User Resident: Electronically Signed by: BRETT MC @ 08/10/2020 10:10 AM Normal [facility] Comment on above: Order Comment: No: D o not add to previous draw CV'D BY IMM [facility] AT 1240 TACROLIMUSon 08-10-2020 Tacrolimus (Bld) [Mass/Vol] 11.2 ng/mL Normal 5.0-20.0 [facility] Comment on above: Order Comment: No: D o not add to previous draw Result Comment: The [employer] Tacrolimus assay is a delayed one-step immunoassay for the quantitative determination of tacrolimus in human whole blood using the chemiluminescent microparticle immunoassay (CMIA) technology with flexible assay protocols, referred to as Chemiflex. Performed By: #### 2 5508, 42477, 64104, 26118, 36577 #### [facility] [address] TACROLIMUSon 08-09-2020 Tacrolimus (Bld) [Mass/Vol] 11.0 ng/mL Normal 5.0-20.0 [facility] Comment on above: Order Comment: Yes: Add to Previous draw if able Result Comment: The [employer] Tacrolimus assay is a delayed one-step immunoassay for the quantitative determination of tacrolimus in human whole blood using the chemiluminescent microparticle immunoassay (CMIA) technology with flexible assay protocols, referred to as Chemiflex. Performed By: #### 2 5508, 82964, 40412, 45512, 54196 #### [facility] [address] [place] [address], [facility] TROPONIN-Ion 08-09-2020 Troponin I.cardiac [Mass/Vol] 5.31 ng/mL Critically high 0.00-0.04 [facility] Comment on above: Order Comment: Yes: Add to Previous draw if able Result Comment: M-MA EVIOUS CRITICAL RESULT REFERENCE RANGES: 0.00 - 0.04 ng/ml NORMAL 0.05 - 0.50 ng/ml INDETERMINATE > 0.50 ng/ml CONSISTENT WITH AN M.I. Performed By: #### 2 5508, 49680, 03371, 55922, 79168 #### [facility] [address] UFH HEPARIN ASSAYon 08-10-19 21 UNFRACTIONATED HEPARIN <0.10 Critically low 0.30-0.70 [facility] Comment on above: Result Comment: Gabby roxaban and Apixaban will interfere with the anti Xa assay used to monitor UFH and LMWH. Results called. Accurately read back by Luiz Shaffer RN at 0709 Performed By: #### 3 0477 ####[facility].[address] COMP METABOLIC PANELon 08-08 Albumin [Mass/Vol] 2.8 g/dL Low 3.5-5.7 [facility] Comment on above: Order Comment: Yes: Add to Previous draw if able Performed By: #### 2 5508, 22827, 54278, 88963, 78057 #### [facility] [address] [place] [address], [facility] ALKALINE PHOSPH 70 IU/L Normal 34-104 [facility] Comment on above: Order Comment: Yes: Add to Previous draw if able Performed By: #### 2 5508, 78430, 24842, 18291, 34440 #### [facility] [address] [place] [address], [facility] ALT [Catalytic activity/Vol] 30 U/L Normal 7-52 [facility] Comment on above: Order Comment: Yes: Add to Previous draw if able Performed By: #### 2 5508, 59440, 91581, 91637, 06217 #### [facility] [address] [place] [address], [place] AST [Catalytic activity/Vol] 48 U/L High 13-39 [facility] Comment on above: Order Comment: Yes: Add to Previous draw if able Performed By: #### 2 5508, 86271, 79671, 67806, 36731 #### [facility] [address] [place] [address], [place] Bilirubin [Mass/Vol] 0.9 mg/dL Normal 0.3-1.0 [facility] Comment on above: Order Comment: Yes: Add to Previous draw if able Performed By: #### 2 5508, 95313, 29351, 80472, 18803 #### [facility] [address] [place] [address], [place] Calcium [Mass/Vol] 8.1 mg/dL Low 8.6-10.3 [facility] Comment on above: Order Comment: Yes: Add to Previous draw if able Performed By: #### 2 5508, 40957, 93396, 89339, 86443 #### [facility] [address] [place] [address], [place] Chloride [Moles/Vol] 104 mmol/L Normal 98-107 [facility] Comment on above: Order Comment: Yes: Add to Previous draw if able Performed By: #### 2 5508, 97980, 28131, 43337, 55161 #### [facility] [address] [place] [address], [place] CO2 [Moles/Vol] 19 mmol/L Low 21-31 [facility] Comment on above: Order Comment: Yes: Add to Previous draw if able Performed By: #### 2 5508, 96255, 63853, 22235, 90816 #### [facility] [address] [place] [address], [place] Creatinine [Mass/Vol] 0.92 mg/dL Normal 0.70-1.30 [facility] Comment on above: Order Comment: Yes: Add to Previous draw if able Performed By: #### 2 5508, 24684, 25815, 20825, 22495 #### [facility] [address] [place] [address], [place] GFR/1.73 sq M.predicted among blacks MDRD (S/P/Bld) [Vol rate/Area] mL/min/{1.73_m2} Normal >60 [facility] Comment on above: Order Comment: Yes: Add to Previous draw if able Performed By: #### 2 5508, 94122, 66560, 45077, 23796 #### [facility] [address] [place] [address], [place] GFR/1.73 sq M.predicted among non-blacks MDRD (S/P/Bld) [Vol rate/Area] mL/min/{1.73_m2} Normal >60 [facility] Comment on above: Order Comment: Yes: Add to Previous draw if able Performed By: #### 2 5508, 65896, 83422, 54399, 72950 #### [facility] [address] [place] [address], [place] Glucose [Mass/Vol] 159 mg/dL High 70-100 [facility] Comment on above: Order Comment: Yes: Add to Previous draw if able Performed By: #### 2 5508, 98148, 63049, 85126, 85199 #### [facility] [address] [place] [address], [place] Potassium [Moles/Vol] 5.2 mmol/L High 3.5-5.1 [facility] Comment on above: Order Comment: Yes: Add to Previous draw if able Performed By: #### 2 5508, 31159, 80311, 39405, 23746 #### [facility] [address] [place] [address], [place] Protein [Mass/Vol] 5.5 g/dL Low 6.0-8.3 [facility] Comment on above: Order Comment: Yes: Add to Previous draw if able Performed By: #### 2 5508, 01116, 70649, 15171, 86258 #### [facility] [address] [facility] [place] [address], [facility] Sodium [Moles/Vol] 133 mmol/L Low 136-145 [facility] Comment on above: Order Comment: Yes: Add to Previous draw if able Performed By: #### 2 5508, 69002, 09276, 52618, 73625 #### [facility] [address] [facility] [address] Urea nitrogen [Mass/Vol] 35 mg/dL High 7-25 [facility] Comment on above: Order Comment: Yes: Add to Previous draw if able Performed By: #### 2 5508, 15665, 52943, 30125, 18087 #### [facility] [address] [facility] [address] TACROLIMUSon 08-08-2020 Tacrolimus (Bld) [Mass/Vol] 7.8 ng/mL Normal 5.0-20.0 [facility] Comment on above: Order Comment: Unkno wn Result Comment: The [employer] Tacrolimus assay is a delayed one-step immunoassay for the quantitative determination of tacrolimus in human whole blood using the chemiluminescent microparticle immunoassay (CMIA) technology with flexible assay protocols, referred to as Chemiflex. Performed By: #### 2 5508, 39945, 44720, 81847, 21847 #### [facility] [address] [facility] [address] UFH HEPARIN ASSAYon 08-09-19 21 UNFRACTIONATED HEPARIN 0.74 IU/mL High 0.30-0.70 [facility] Comment on above: Result Comment: Gabby roxaban and Apixaban will interfere with the anti Xa assay used to monitor UFH and LMWH. Performed By: #### 3 0477 ####[facility] C REACTIVE PROTEINon 04-23-2 021 CRP [Mass/Vol] 75.8 mg/L High 0.0-7.0 [facility] Comment on above: Order Comment: No: D o not add to previous draw CV'D BY [facility] AT 1240 Performed By: #### 6 1405 #### [facility] [address] [place] [address], [facility] SEDIMENTATION RATEon 021 SED RATE 30 mm/hr High 0-10 [facility] Comment on above: Order Comment: No: D o not add to previous draw Performed By: #### 6 1405 #### [facility] [address] [place] [address], [facility] TACROLIMUSon 08-07-2020 Tacrolimus (Bld) [Mass/Vol] 9.1 ng/mL Normal 5.0-20.0 [facility] Comment on above: Order Comment: Unkno wn Result Comment: The [employer] Tacrolimus assay is a delayed one-step immunoassay for the quantitative determination of tacrolimus in human whole blood using the chemiluminescent microparticle immunoassay (CMIA) technology with flexible assay protocols, referred to as Chemiflex. Performed By: #### 9 9914 #### [facility] [address] [facility] [place] [address], [facility] TROPONIN-Ion 08-07-2020 Troponin I.cardiac [Mass/Vol] 7.37 ng/mL Critically high 0.00-0.04 [facility] Comment on above: Order Comment: Yes: Add to Previous draw if able Result Comment: M-MA EVIOUS CRITICAL RESULT 42.94 REFERENCE RANGES: 0.00 - 0.04 ng/ml NORMAL 0.05 - 0.50 ng/ml INDETERMINATE > 0.50 ng/ml CONSISTENT WITH AN M.I. Performed By: #### 2 5508, 74788, 43462, 49761, 12596 #### [facility] [address] [place] [address], [facility] UFH HEPARIN ASSAYon 08-08-19 UNFRACTIONATED HEPARIN 0.48 IU/mL Normal 0.30-0.70 [facility] Comment on above: Result Comment: Gabby roxaban and Apixaban will interfere with the anti Xa assay used to monitor UFH and LMWH. Performed By: #### 3 0477 ####[facility] [address] CBC COMPLETE BLOOD COUNTon 0 - Erythrocyte distribution width (RBC) [Ratio] 13.2 % Normal 11.5-15.0 [facility] Comment on above: Order Comment: Yes: Add to Previous draw if able Performed By: #### 2 5508, 42338, 99936, 29591, 22100 #### [facility] [address] [facility] Hematocrit (Bld) [Volume fraction] 44.8 % Normal 39.0-50.0 [facility] Comment on above: Order Comment: Yes: Add to Previous draw if able Performed By: #### 2 5508, 19975, 46739, 96325, 01478 #### [facility] [address] Hemoglobin (Bld) [Mass/Vol] 14.8 g/dL Normal 13.0-17.0 [facility] Comment on above: Order Comment: Yes: Add to Previous draw if able Performed By: #### 2 5508, 15195, 50905, 57185, 24233 #### [facility] [address] [facility] [place] [address], [facility] MCH (RBC) [Entitic mass] 29.0 pg Normal 27.0-33.0 [facility] Comment on above: Order Comment: Yes: Add to Previous draw if able Performed By: #### 2 5508, 11747, 07815, 01959, 82883 #### [facility] [address] [place] [address], [facility] MCHC (RBC) [Mass/Vol] 33.0 g/dL Normal 32.0-35.0 [facility] Comment on above: Order Comment: Yes: Add to Previous draw if able Performed By: #### 2 5508, 42780, 13974, 84280, 97784 #### [facility] [address] [place] [address], [facility] MCV (RBC) [Entitic vol] 87.8 fL Normal 82.0-98.0 [facility] Comment on above: Order Comment: Yes: Add to Previous draw if able Performed By: #### 2 5508, 74219, 75998, 77944, 66145 #### [facility] [address] [place] [address], [facility] Nucleated RBC/100 WBC (Bld) [Ratio] 0 % Normal 0-0 [facility] Comment on above: Order Comment: Yes: Add to Previous draw if able Performed By: #### 2 5508, 51472, 79731, 02513, 17360 #### [facility] [address] [place] [address], [facility] PLAT CNT 367 10*3/uL Normal 150-400 [facility] Comment on above: Order Comment: Yes: Add to Previous draw if able Performed By: #### 2 5508, 18053, 15332, 17609, 71807 #### [facility] [address] [place] [address], [facility] RBC (Bld) [#/Vol] 5.10 10*6/uL Normal 4.20-5.70 [facility] Comment on above: Order Comment: Yes: Add to Previous draw if able Performed By: #### 2 5508, 25793, 89006, 38641, 77800 #### [facility] [address] [place] [address], [place] WBC (Bld) [#/Vol] 3.94 10*3/uL Low 4.00-10.60 [facility] Comment on above: Order Comment: Yes: Add to Previous draw if able Performed By: #### 2 5508, 56562, 33498, 70850, 06498 #### [facility] [address] [place] [address], [facility] COMP METABOLIC PANELon 08-06 Albumin [Mass/Vol] 3.0 g/dL Low 3.5-5.7 [facility] Comment on above: Order Comment: No: D o not add to previous drawLABS DRAWN IN SAME HAND PAUSED IV. PT IS TO REMAIN FACE DOWN ONSTOMACH PER RN SO THAT IS THE ONLY PLACE WE CAN DRAW FROM RIGHT NOW. Performed By: #### 2 5508, 99223, 62220, 12069, 18033 #### [facility] [address] [place] [address], [facility] ALKALINE PHOSPH 74 IU/L Normal 34-104 [facility] Comment on above: Order Comment: No: D o not add to previous drawLABS DRAWN IN SAME HAND PAUSED IV. PT IS TO REMAIN FACE DOWN ONSTOMACH PER RN SO THAT IS THE ONLY PLACE WE CAN DRAW FROM RIGHT NOW. Performed By: #### 2 5508, 12355, 81189, 75850, 25109 #### [facility] [address] [place] [address], [facility] ALT [Catalytic activity/Vol] 42 U/L Normal 7-52 [facility] Comment on above: Order Comment: No: D o not add to previous drawLABS DRAWN IN SAME HAND PAUSED IV. PT IS TO REMAIN FACE DOWN ONSTOMACH PER RN SO THAT IS THE ONLY PLACE WE CAN DRAW FROM RIGHT NOW. Performed By: #### 2 5508, 75657, 49479, 22683, 15906 #### [facility] [address] [place] [address], [facility] AST [Catalytic activity/Vol] 112 U/L High 13-39 [facility] Comment on above: Order Comment: No: D o not add to previous drawLABS DRAWN IN SAME HAND PAUSED IV. PT IS TO REMAIN FACE DOWN ONSTOMACH PER RN SO THAT IS THE ONLY PLACE WE CAN DRAW FROM RIGHT NOW. Performed By: #### 2 5508, 16282, 75612, 62195, 35987 #### [facility] [address] [place] [address], [place] Bilirubin [Mass/Vol] 1.4 mg/dL High 0.3-1.0 [facility] Comment on above: Order Comment: No: D o not add to previous drawLABS DRAWN IN SAME HAND PAUSED IV. PT IS TO REMAIN FACE DOWN ONSTOMACH PER RN SO THAT IS THE ONLY PLACE WE CAN DRAW FROM RIGHT NOW. Performed By: #### 2 5508, 79281, 17441, 89593, 96223 #### [facility] [address] [place] [address], [place] Calcium [Mass/Vol] 8.3 mg/dL Low 8.6-10.3 [facility] Comment on above: Order Comment: No: D o not add to previous drawLABS DRAWN IN SAME HAND PAUSED IV. PT IS TO REMAIN FACE DOWN ONSTOMACH PER RN SO THAT IS THE ONLY PLACE WE CAN DRAW FROM RIGHT NOW. Performed By: #### 2 5508, 53276, 31945, 74233, 94589 #### [facility] [address] [place] [address], [place] Chloride [Moles/Vol] 105 mmol/L Normal 98-107 [facility] Comment on above: Order Comment: No: D o not add to previous drawLABS DRAWN IN SAME HAND PAUSED IV. PT IS TO REMAIN FACE DOWN ONSTOMACH PER RN SO THAT IS THE ONLY PLACE WE CAN DRAW FROM RIGHT NOW. Performed By: #### 2 5508, 52244, 68352, 07709, 75984 #### [facility] [address] [place] [address], [place] CO2 [Moles/Vol] 20 mmol/L Low 21-31 [facility] Comment on above: Order Comment: No: D o not add to previous drawLABS DRAWN IN SAME HAND PAUSED IV. PT IS TO REMAIN FACE DOWN ONSTOMACH PER RN SO THAT IS THE ONLY PLACE WE CAN DRAW FROM RIGHT NOW. Performed By: #### 2 5508, 56318, 49666, 91240, 53729 #### [facility] [address] [place] [address], [facility] Creatinine [Mass/Vol] 0.91 mg/dL Normal 0.70-1.30 [facility] Comment on above: Order Comment: No: D o not add to previous drawLABS DRAWN IN SAME HAND PAUSED IV. PT IS TO REMAIN FACE DOWN ONSTOMACH PER RN SO THAT IS THE ONLY PLACE WE CAN DRAW FROM RIGHT NOW. Performed By: #### 2 5508, 63871, 53538, 41189, 66892 #### [facility] [address] [place] [address], [facility] GFR/1.73 sq M.predicted among blacks MDRD (S/P/Bld) [Vol rate/Area] mL/min/{1.73_m2} Normal >60 [facility] Comment on above: Order Comment: No: D o not add to previous drawLABS DRAWN IN SAME HAND PAUSED IV. PT IS TO REMAIN FACE DOWN ONSTOMACH PER RN SO THAT IS THE ONLY PLACE WE CAN DRAW FROM RIGHT NOW. Performed By: #### 2 5508, 17506, 38220, 38955, 72445 #### [facility] [address] [place] [address], [facility] GFR/1.73 sq M.predicted among non-blacks MDRD (S/P/Bld) [Vol rate/Area] mL/min/{1.73_m2} Normal >60 [facility] Comment on above: Order Comment: No: D o not add to previous drawLABS DRAWN IN SAME HAND PAUSED IV. PT IS TO REMAIN FACE DOWN ONSTOMACH PER RN SO THAT IS THE ONLY PLACE WE CAN DRAW FROM RIGHT NOW. Performed By: #### 2 5508, 58194, 06887, 47449, 34961 #### [facility] [address] [place] [address], [place] Glucose [Mass/Vol] 153 mg/dL High 70-100 [facility] Comment on above: Order Comment: No: D o not add to previous drawLABS DRAWN IN SAME HAND PAUSED IV. PT IS TO REMAIN FACE DOWN ONSTOMACH PER RN SO THAT IS THE ONLY PLACE WE CAN DRAW FROM RIGHT NOW. Performed By: #### 2 5508, 54003, 01652, 69977, 77268 #### [facility] [address] [place] [address], [place] Potassium [Moles/Vol] 4.7 mmol/L Normal 3.5-5.1 [facility] Comment on above: Order Comment: No: D o not add to previous drawLABS DRAWN IN SAME HAND PAUSED IV. PT IS TO REMAIN FACE DOWN ONSTOMACH PER RN SO THAT IS THE ONLY PLACE WE CAN DRAW FROM RIGHT NOW. Performed By: #### 2 5508, 55495, 83874, 94244, 97566 #### [facility] [address] [place] [address], [facility] Protein [Mass/Vol] 5.8 g/dL Low 6.0-8.3 [facility] Comment on above: Order Comment: No: D o not add to previous drawLABS DRAWN IN SAME HAND PAUSED IV. PT IS TO REMAIN FACE DOWN ONSTOMACH PER RN SO THAT IS THE ONLY PLACE WE CAN DRAW FROM RIGHT NOW. Performed By: #### 2 5508, 99161, 13705, 65541, 88741 #### [facility] [address] [place] [address], [facility] Sodium [Moles/Vol] 136 mmol/L Normal 136-145 [facility] Comment on above: Order Comment: No: D o not add to previous drawLABS DRAWN IN SAME HAND PAUSED IV. PT IS TO REMAIN FACE DOWN ONSTOMACH PER RN SO THAT IS THE ONLY PLACE WE CAN DRAW FROM RIGHT NOW. Performed By: #### 2 5508, 68595, 47240, 21234, 84077 #### [facility] [address] [place] [address], [facility] Urea nitrogen [Mass/Vol] 28 mg/dL High 7-25 [facility] Comment on above: Order Comment: No: D o not add to previous drawLABS DRAWN IN SAME HAND PAUSED IV. PT IS TO REMAIN FACE DOWN ONSTOMACH PER RN SO THAT IS THE ONLY PLACE WE CAN DRAW FROM RIGHT NOW. Performed By: #### 2 5508, 73144, 06398, 95832, 69679 #### [facility] [address] [place] [address], [facility] TACROLIMUSon 08-06-2020 Tacrolimus (Bld) [Mass/Vol] 9.2 ng/mL Normal 5.0-20.0 [facility] Comment on above: Order Comment: Unkno wnLABS DRAWN IN SAME HAND PAUSED IV. PT IS TO REMAIN FACE DOWN ONSTOMACH PER RN SO THAT IS THE ONLY PLACE WE CAN DRAW FROM RIGHT NOW. Result Comment: The [employer] Tacrolimus assay is a delayed one-step immunoassay for the quantitative determination of tacrolimus in human whole blood using the chemiluminescent microparticle immunoassay (CMIA) technology with flexible assay protocols, referred to as Chemiflex. Performed By: #### 2 5508, 45316, 21576, 67564, 16436 #### [facility] [address] [place] [place] [address], [facility] TROPONIN-Ion 08-06-2020 Troponin I.cardiac [Mass/Vol] 42.94 ng/mL Critically high 0.00-0.04 [facility] Comment on above: Result Comment: M-MA EVIOUS CRITICAL RESULT REFERENCE RANGES: 0.00 - 0.04 ng/ml NORMAL 0.05 - 0.50 ng/ml INDETERMINATE > 0.50 ng/ml CONSISTENT WITH AN M.I. Performed By: #### 2 5508, 03483, 72790, 57201, 65718 #### [facility] [address] [facility] [place] [address], [facility] Troponin I.cardiac [Mass/Vol] 46.69 ng/mL Critically high 0.00-0.04 [facility] Comment on above: Order Comment: No: D o not add to previous draw Result Comment: M-MA EVIOUS CRITICAL RESULT REFERENCE RANGES: 0.00 - 0.04 ng/ml NORMAL 0.05 - 0.50 ng/ml INDETERMINATE > 0.50 ng/ml CONSISTENT WITH AN M.I. Performed By: #### 3 5200 ####[facility] UFH HEPARIN ASSAYon 08-07-19 UNFRACTIONATED HEPARIN 0.34 IU/mL Normal 0.30-0.70 [facility] Comment on above: Order Comment: No: D o not add to previous draw Result Comment: Gabby roxaban and Apixaban will interfere with the anti Xa assay used to monitor UFH and LMWH. Performed By: #### 6 1405 #### [facility] [address] CHLORIDE URon 08-05-2020 Chloride [Moles/Vol] 26.0 mmol/L Normal [facility] Comment on above: Order Comment: Yes: Add to Previous draw if able Result Comment: Ther e are no established reference values for random urine specimens Performed By: #### 2 5508, 82753, 76781, 60920, 04522 #### [facility] [address] COMP METABOLIC PANELon 08-05 Albumin [Mass/Vol] 3.0 g/dL Low 3.5-5.7 [facility] Comment on above: Order Comment: Yes: Add to Previous draw if able Performed By: #### 2 5508, 85043, 33706, 57282, 41605 #### [facility] [address] [place] [address], [facility] ALKALINE PHOSPH 78 IU/L Normal 34-104 [facility] Comment on above: Order Comment: Yes: Add to Previous draw if able Performed By: #### 2 5508, 32381, 01059, 66314, 08427 #### [facility] [address] [place] [address], [facility] ALT [Catalytic activity/Vol] 35 U/L Normal 7-52 [facility] Comment on above: Order Comment: Yes: Add to Previous draw if able Performed By: #### 2 5508, 60168, 16256, 94319, 55051 #### [facility] [address] [place] [address], [place] AST [Catalytic activity/Vol] 54 U/L High 13-39 [facility] Comment on above: Order Comment: Yes: Add to Previous draw if able Performed By: #### 2 5508, 19855, 70813, 77868, 85134 #### [facility] [address] [place] [address], [place] Bilirubin [Mass/Vol] 1.0 mg/dL Normal 0.3-1.0 [facility] Comment on above: Order Comment: Yes: Add to Previous draw if able Performed By: #### 2 5508, 61649, 91634, 26349, 35319 #### [facility] [address] [place] [address], [place] Calcium [Mass/Vol] 8.2 mg/dL Low 8.6-10.3 [facility] Comment on above: Order Comment: Yes: Add to Previous draw if able Performed By: #### 2 5508, 69235, 46900, 80461, 49031 #### [facility] [address] [place] [address], [place] Chloride [Moles/Vol] 105 mmol/L Normal 98-107 [facility] Comment on above: Order Comment: Yes: Add to Previous draw if able Performed By: #### 2 5508, 98606, 20625, 44907, 69237 #### [facility] [address] [place] [address], [place] CO2 [Moles/Vol] 19 mmol/L Low 21-31 [facility] Comment on above: Order Comment: Yes: Add to Previous draw if able Performed By: #### 2 5508, 82237, 11915, 30816, 98509 #### [facility] [address] [place] [address], [place] Creatinine [Mass/Vol] 0.89 mg/dL Normal 0.70-1.30 [facility] Comment on above: Order Comment: Yes: Add to Previous draw if able Performed By: #### 2 5508, 91094, 24271, 19420, 42337 #### [facility] [address] [place] [address], [place] GFR/1.73 sq M.predicted among blacks MDRD (S/P/Bld) [Vol rate/Area] mL/min/{1.73_m2} Normal >60 [facility] Comment on above: Order Comment: Yes: Add to Previous draw if able Performed By: #### 2 5508, 18337, 85171, 30020, 98251 #### [facility] [address] [place] [address], [place] GFR/1.73 sq M.predicted among non-blacks MDRD (S/P/Bld) [Vol rate/Area] mL/min/{1.73_m2} Normal >60 [facility] Comment on above: Order Comment: Yes: Add to Previous draw if able Performed By: #### 2 5508, 12531, 33333, 97201, 34698 #### [facility] [address] [place] [address], [place] Glucose [Mass/Vol] 174 mg/dL High 70-100 [facility] Comment on above: Order Comment: Yes: Add to Previous draw if able Performed By: #### 2 5508, 39641, 10525, 02284, 09607 #### [facility] [address] [place] [address], [place] Potassium [Moles/Vol] 4.9 mmol/L Normal 3.5-5.1 [facility] Comment on above: Order Comment: Yes: Add to Previous draw if able Performed By: #### 2 5508, 16489, 42118, 05870, 58016 #### [facility] [address] [place] [address], [place] Protein [Mass/Vol] 5.5 g/dL Low 6.0-8.3 [facility] Comment on above: Order Comment: Yes: Add to Previous draw if able Performed By: #### 2 5508, 96239, 28087, 20055, 65425 #### [facility] [address] [place] [address], [facility] Sodium [Moles/Vol] 136 mmol/L Normal 136-145 [facility] Comment on above: Order Comment: Yes: Add to Previous draw if able Performed By: #### 2 5508, 35320, 28947, 02951, 86129 #### [facility] [address] [place] [address], [facility] Urea nitrogen [Mass/Vol] 35 mg/dL High 7-25 [facility] Comment on above: Order Comment: Yes: Add to Previous draw if able Performed By: #### 2 5508, 29677, 87778, 07359, 02641 #### [facility] [address] [place] [address], [place] LIVER BATTERYon 08-05-2020 Albumin [Mass/Vol] 3.2 g/dL Low 3.5-5.7 [facility] Comment on above: Performed By: #### 2 5508, 21737, 22203, 97124, 65556 #### [facility] [address] [place] [address], [place] ALKALINE PHOSPH 84 IU/L Normal 34-104 [facility] Comment on above: Performed By: #### 2 5508, 22508, 63516, 50604, 57463 #### [facility] [address] [place] [address], [place] ALT [Catalytic activity/Vol] 40 U/L Normal 7-52 [facility] Comment on above: Performed By: #### 2 5508, 81627, 54239, 21796, 98101 #### [facility] [address] [place] [address], [place] AST [Catalytic activity/Vol] 36 U/L Normal 13-39 [facility] Comment on above: Performed By: #### 2 5508, 71507, 57372, 80140, 30736 #### [facility] [address] [place] [address], [facility] Bilirubin [Mass/Vol] 0.9 mg/dL Normal 0.3-1.0 [facility] Comment on above: Performed By: #### 2 5508, 40106, 75811, 45998, 71977 #### [facility] [address] [place] [address], [facility] Bilirubin.direct [Mass/Vol] 0.3 mg/dL High 0.0-0.2 [facility] Comment on above: Performed By: #### 2 5508, 21807, 90890, 84902, 26685 #### [facility] [address] [facility] [place] [address], [facility] Protein [Mass/Vol] 5.9 g/dL Low 6.0-8.3 [facility] Comment on above: Performed By: #### 2 5508, 80845, 60331, 64886, 29041 #### [facility] [address] [facility]. [address] PORTABLE CHEST 1 VIEWon 07-17 PORTABLE CHEST 1 VIEW [facility] Department of Radiology [address] [place] [id number] ===== Patient Name: VISHAL DUKE : 1960 Sex: M Age: Race: White Pt. Location: [id number] Patient Status: I Ordered Date: 08/05/2020 1:35:00 AM Completed Date: 08/05/2020 01:53 AM Requesting Provider: KARLENE MARMOLEJO Attending Provider: YOJANA TRUJILLO Report Copy To: Signs & Symptoms: Chest Pain History: See Comments Comments: Evaluate for Infiltrates Exam: PORTABLE CHEST 1 VIEW ===== PORTABLE CHEST 1 VIEW 08/05/2020 1:53 AM [...] reports Electronically signed: Mauricio Koo. Transcribed by: [email or web address], User Resident: ELADIA CABRERA Electronically Signed by: MAURICIO KOO @ 08/05/2020 02:08 AM I personally read this/these film(s) with this resident Normal [facility] Comment on above: Order Comment: Yes: Add to Previous draw if able POTASSIUM URon 08-05-2020 Potassium [Moles/Vol] 61.0 mmol/L Normal [facility] Comment on above: Order Comment: Yes: Add to Previous draw if able Result Comment: Ther e are no established reference values for random urine specimens Performed By: #### 2 5508, 64361, 20580, 73468, 64102 #### [facility] [address] [place] [address], [place] PROCALCITONINon 08-05-2020 PROCALCITONIN 0.54 ng/mL High 0.00-0.10 [facility] Comment on above: Order Comment: [...] initial PCT<0.5ng/mL Performed By: #### 2 5508, 03819, 28116, 49288, 81114 #### [facility] [address] [place] [address], [facility] SODIUM URINE RANDOMon 2020 Sodium (U) [Moles/Vol] 54 mmol/L Normal [facility] Comment on above: Order Comment: Yes: Add to Previous draw if able Result Comment: Ther e are no established reference values for random urine specimens Performed By: #### 2 5508, 92223, 74811, 76984, 70872 #### [facility] [address] [place] [address], [facility] TACROLIMUSon 08-05-2020 Tacrolimus (Bld) [Mass/Vol] 11.2 ng/mL Normal 5.0-20.0 [facility] Comment on above: Order Comment: Unkno wn Result Comment: The [employer] Tacrolimus assay is a delayed one-step immunoassay for the quantitative determination of tacrolimus in human whole blood using the chemiluminescent microparticle immunoassay (CMIA) technology with flexible assay protocols, referred to as Chemiflex. Performed By: #### 2 5508, 70415, 00980, 95174, 74237 #### [facility] [address] [place] [address], [facility] TROPONIN-Ion 08-05-2020 Troponin I.cardiac [Mass/Vol] 39.61 ng/mL Critically high 0.00-0.04 [facility] Comment on above: Order Comment: Yes: Add to Previous draw if able Result Comment: M-MA EVIOUS CRITICAL RESULT REFERENCE RANGES: 0.00 - 0.04 ng/ml NORMAL 0.05 - 0.50 ng/ml INDETERMINATE > 0.50 ng/ml CONSISTENT WITH AN M.I. Performed By: #### 2 5508, 53163, 68486, 81697, 02691 #### [facility] [address] [place] [address], [facility] Troponin I.cardiac [Mass/Vol] 36.67 ng/mL Critically high 0.00-0.04 [facility] Comment on above: Order Comment: No: D o not add to previous draw Result Comment: M-MA EVIOUS CRITICAL RESULT REFERENCE RANGES: 0.00 - 0.04 ng/ml NORMAL 0.05 - 0.50 ng/ml INDETERMINATE > 0.50 ng/ml CONSISTENT WITH AN M.I. Performed By: #### 2 5508, 01546, 59247, 36673, 51525 #### [facility] [address] [place] [address], [facility] Troponin I.cardiac [Mass/Vol] 2.03 ng/mL Critically high 0.00-0.04 [facility] Comment on above: Order Comment: Yes: Add to Previous draw if able Result Comment: M-TR OPONIN INITIAL CRITICAL HIGH; RESPUN AND RETESTED M-CRITICAL RESULT(S) REVIEWED, CALLED TO AND READ BACK BY ROSA M COTA RN AT 0902 REFERENCE RANGES: 0.00 - 0.04 ng/ml NORMAL 0.05 - 0.50 ng/ml INDETERMINATE > 0.50 ng/ml CONSISTENT WITH AN M.I. Performed By: #### 2 5508, 85632, 12022, 64008, 72060 #### [facility] [address] [facility] [place] [address], [facility] Troponin I.cardiac [Mass/Vol] 0.03 ng/mL Normal 0.00-0.04 [facility] Comment on above: Order Comment: Yes: Add to Previous draw if able Result Comment: REFE RENCE RANGES: 0.00 - 0.04 ng/ml NORMAL 0.05 - 0.50 ng/ml INDETERMINATE > 0.50 ng/ml CONSISTENT WITH AN M.I. Performed By: #### 2 5508, 12305, 97377, 53487, 89854 #### [facility] [address] [facility] [address] UFH HEPARIN ASSAYon 08-06-19 UNFRACTIONATED HEPARIN 0.37 IU/mL Normal 0.30-0.70 [facility] Comment on above: Result Comment: Gabby roxaban and Apixaban will interfere with the anti Xa assay used to monitor UFH and LMWH. Performed By: #### 3 0477 ####[facility] [facility].[address] UNFRACTIONATED HEPARIN 0.17 IU/mL Low 0.30-0.70 [facility] Comment on above: Result Comment: Gabby roxaban and Apixaban will interfere with the anti Xa assay used to monitor UFH and LMWH. Performed By: #### 6 1405 #### [facility] [address] [place] [address], [facility] COMP METABOLIC PANELon 08-04 Albumin [Mass/Vol] 3.1 g/dL Low 3.5-5.7 [facility] Comment on above: Order Comment: Yes: Add to Previous draw if able Performed By: #### 2 5508, 96725, 58733, 84690, 02689 #### [facility] [address] [place] [address], [facility] ALKALINE PHOSPH 86 IU/L Normal 34-104 [facility] Comment on above: Order Comment: Yes: Add to Previous draw if able Performed By: #### 2 5508, 28797, 78370, 38335, 11372 #### [facility] [address] [place] [address], [place] ALT [Catalytic activity/Vol] 47 U/L Normal 7-52 [facility] Comment on above: Order Comment: Yes: Add to Previous draw if able Performed By: #### 2 5508, 72456, 15065, 61193, 20447 #### [facility] [address] [place] [address], [place] AST [Catalytic activity/Vol] 45 U/L High 13-39 [facility] Comment on above: Order Comment: Yes: Add to Previous draw if able Performed By: #### 2 5508, 44696, 71489, 31189, 78254 #### [facility] [address] [place] [address], [place] Bilirubin [Mass/Vol] 0.5 mg/dL Normal 0.3-1.0 [facility] Comment on above: Order Comment: Yes: Add to Previous draw if able Performed By: #### 2 5508, 21297, 39478, 79164, 92760 #### [facility] [address] [place] [address], [place] Calcium [Mass/Vol] 8.4 mg/dL Low 8.6-10.3 [facility] Comment on above: Order Comment: Yes: Add to Previous draw if able Performed By: #### 2 5508, 05723, 13768, 64688, 81174 #### [facility] [address] [place] [address], [place] Chloride [Moles/Vol] 102 mmol/L Normal 98-107 [facility] Comment on above: Order Comment: Yes: Add to Previous draw if able Performed By: #### 2 5508, 11940, 71806, 93436, 31509 #### [facility] [address] [place] [address], [place] CO2 [Moles/Vol] 24 mmol/L Normal 21-31 [facility] Comment on above: Order Comment: Yes: Add to Previous draw if able Performed By: #### 2 5508, 48900, 37335, 90043, 88844 #### [facility] [address] [place] [address], [facility] Creatinine [Mass/Vol] 1.04 mg/dL Normal 0.70-1.30 [facility] Comment on above: Order Comment: Yes: Add to Previous draw if able Performed By: #### 2 5508, 32892, 67994, 74650, 09934 #### [facility] [address] [place] [address], [place] GFR/1.73 sq M.predicted among blacks MDRD (S/P/Bld) [Vol rate/Area] mL/min/{1.73_m2} Normal >60 [facility] Comment on above: Order Comment: Yes: Add to Previous draw if able Performed By: #### 2 5508, 52744, 67426, 22201, 89342 #### [facility] [address] [place] [address], [place] GFR/1.73 sq M.predicted among non-blacks MDRD (S/P/Bld) [Vol rate/Area] mL/min/{1.73_m2} Normal >60 [facility] Comment on above: Order Comment: Yes: Add to Previous draw if able Performed By: #### 2 5508, 30171, 66316, 33601, 84891 #### [facility] [address] [place] [address], [place] Glucose [Mass/Vol] 196 mg/dL High 70-100 [facility] Comment on above: Order Comment: Yes: Add to Previous draw if able Performed By: #### 2 5508, 78853, 13924, 22263, 25722 #### [facility] [address] [place] [address], [facility] Potassium [Moles/Vol] 4.6 mmol/L Normal 3.5-5.1 [facility] Comment on above: Order Comment: Yes: Add to Previous draw if able Performed By: #### 2 5508, 34818, 76394, 57283, 96795 #### [facility] [address] [place] [address], [facility] Protein [Mass/Vol] 5.8 g/dL Low 6.0-8.3 [facility] Comment on above: Order Comment: Yes: Add to Previous draw if able Performed By: #### 2 5508, 22071, 49601, 92095, 96121 #### [facility] [address] [place] [address], [facility] Sodium [Moles/Vol] 135 mmol/L Low 136-145 [facility] Comment on above: Order Comment: Yes: Add to Previous draw if able Performed By: #### 2 5508, 80659, 28161, 68562, 57988 #### [facility] [address] [place] [address], [facility] Urea nitrogen [Mass/Vol] 38 mg/dL High 7-25 [facility] Comment on above: Order Comment: Yes: Add to Previous draw if able Performed By: #### 2 5508, 84940, 99858, 04940, 19416 #### [facility] [address] [place] [address], [facility] CPKon 08-04-2020 CK [Catalytic activity/Vol] 80 U/L Normal 30-223 [facility] Comment on above: Performed By: #### 2 5508, 18291, 63805, 92836, 89835 #### [facility] [address] [place] [address], [facility] LDH BLOODon 08-04-2020 LDH 569 Units/L High 140-271 [facility] Comment on above: Performed By: #### 2 5508, 93788, 20989, 41730, 87269 #### [facility] [address] [place] [address], [facility] MAGNESIUM BLOODon 08-04-2020 Magnesium [Mass/Vol] 2.3 mg/dL Normal 1.9-2.7 [facility] Comment on above: Performed By: #### 2 5508, 77384, 51847, 08630, 99631 #### [facility] [address] [facility] [address] TACROLIMUSon 08-04-2020 Tacrolimus (Bld) [Mass/Vol] 17.4 ng/mL Normal 5.0-20.0 [facility] Comment on above: Order Comment: Yes: Add to Previous draw if able Result Comment: The [employer] Tacrolimus assay is a delayed one-step immunoassay for the quantitative determination of tacrolimus in human whole blood using the chemiluminescent microparticle immunoassay (CMIA) technology with flexible assay protocols, referred to as Chemiflex. Performed By: #### 2 5508, 91126, 60384, 64118, 72180 #### [facility] [address] [facility] [place] [address], [facility] TROPONIN-Ion 08-04-2020 Troponin I.cardiac [Mass/Vol] 0.01 ng/mL Normal 0.00-0.04 [facility] Comment on above: Result Comment: REFE RENCE RANGES: 0.00 - 0.04 ng/ml NORMAL 0.05 - 0.50 ng/ml INDETERMINATE > 0.50 ng/ml CONSISTENT WITH AN M.I. Performed By: #### 2 5508, 69380, 47874, 67349, 32410 #### [facility] [address] *SARS-CoV-2 COVID-19on 08-03 SARS-CoV-2 (COVID-19) RNA ADELINE+probe Ql (Unsp spec) Detected Critically abnormal Not Detected [facility] Comment on above: Result Comment: Call ed Lara Reid on 08-03 at 1020. Performed By: #### 2 5508, 23570, 65700, 71869, 60380 #### [facility] [address] [place] [address], [facility] BASIC METABOLIC PANELon 07-16 Calcium [Mass/Vol] 8.4 mg/dL Low 8.6-10.3 [facility] Comment on above: Order Comment: No: D o not add to previous draw Pt in bath room askme to come back Performed By: #### 3 [id number] #### [facility] [address] [place] [address], [facility] Chloride [Moles/Vol] 97 mmol/L Low 98-107 [facility] Comment on above: Order Comment: No: D o not add to previous draw Pt in bath room askme to come back Performed By: #### 3 [id number] #### [facility] [facility] [address] [place] [address], [place] CO2 [Moles/Vol] 22 mmol/L Normal 21-31 [facility] Comment on above: Order Comment: No: D o not add to previous draw Pt in bath room askme to come back Performed By: #### 3 5200 #### [facility] [address] [place] [address], [facility] Creatinine [Mass/Vol] 0.90 mg/dL Normal 0.70-1.30 [facility] Comment on above: Order Comment: No: D o not add to previous draw Pt in bath room askme to come back Performed By: #### 3 5200 #### [facility] [address] [place] [address], [place] GFR/1.73 sq M.predicted among blacks MDRD (S/P/Bld) [Vol rate/Area] mL/min/{1.73_m2} Normal >60 [facility] Comment on above: Order Comment: No: D o not add to previous draw Pt in bath room askme to come back Performed By: #### 3 5200 #### [facility] [address] [place] [address], [place] GFR/1.73 sq M.predicted among non-blacks MDRD (S/P/Bld) [Vol rate/Area] mL/min/{1.73_m2} Normal >60 [facility] Comment on above: Order Comment: No: D o not add to previous draw Pt in bath room askme to come back Performed By: #### 3 5200 #### [facility] [address] [place] [address], [facility] Glucose [Mass/Vol] 167 mg/dL High 70-100 [facility] Comment on above: Order Comment: No: D o not add to previous draw Pt in bath room askme to come back Performed By: #### 3 5200 #### [facility] [address] [place] [address], [place] Potassium [Moles/Vol] 4.4 mmol/L Normal 3.5-5.1 [facility] Comment on above: Order Comment: No: D o not add to previous draw Pt in bath room askme to come back Performed By: #### 3 5200 #### [facility] [address] [place] [address], [place] Sodium [Moles/Vol] 131 mmol/L Low 136-145 [facility] Comment on above: Order Comment: No: D o not add to previous draw Pt in bath room askme to come back Performed By: #### 3 5200 #### [facility] [address] [place] [address], [place] Urea nitrogen [Mass/Vol] 22 mg/dL Normal 7-25 [facility] Comment on above: Order Comment: No: D o not add to previous draw Pt in bath room askme to come back Performed By: #### 3 5200 #### [facility] [address] [facility] [place] [address], [facility] CBC W/DIFFon 08-03-2020 ABS IMM GRANS 0.1 10*3/uL Normal 0.0-0.2 [facility] Comment on above: Order Comment: No: D o not add to previous draw Performed By: #### 6 1405 #### [facility] [address] [facility] [place] [address], [facility] ABS NEUTROPHILS 4.8 10*3/uL Normal 1.6-7.6 [facility] Comment on above: Order Comment: No: D o not add to previous draw Performed By: #### 6 1405 #### [facility] [address] [place] [address], [facility] Basophils (Bld) [#/Vol] 0.0 10*3/uL Normal 0.0-0.2 [facility] Comment on above: Order Comment: No: D o not add to previous draw Performed By: #### 6 1405 #### [facility] [address] [place] [address], [facility] Basophils/100 WBC (Bld) 0.4 % Normal 0.0-1.0 [facility] Comment on above: Order Comment: No: D o not add to previous draw Performed By: #### 6 1405 #### [facility] [address] [facility] [place] [address], [facility] Eosinophils (Bld) [#/Vol] 0.0 10*3/uL Normal 0.0-0.5 [facility] Comment on above: Order Comment: No: D o not add to previous draw Performed By: #### 6 1405 #### [facility] [address] [facility] [place] [address], [facility] Eosinophils/100 WBC (Bld) 0.0 % Normal 0.0-6.0 [facility] Comment on above: Order Comment: No: D o not add to previous draw Performed By: #### 6 1405 #### [facility] [address] [place] [address], [facility] Erythrocyte distribution width (RBC) [Ratio] 13.6 % Normal 11.5-15.0 [facility] Comment on above: Order Comment: No: D o not add to previous draw Performed By: #### 6 1405 #### [facility] [address] [place] [address], [facility] Hematocrit (Bld) [Volume fraction] 45.6 % Normal 39.0-50.0 [facility] Comment on above: Order Comment: No: D o not add to previous draw Performed By: #### 6 1405 #### [facility] [address] [place] [address], [facility] Hemoglobin (Bld) [Mass/Vol] 15.9 g/dL Normal 13.0-17.0 [facility] Comment on above: Order Comment: No: D o not add to previous draw Performed By: #### 6 1405 #### [facility] [address] [place] [address], [facility] IMMATURE GRANS 0.9 % Normal 0.0-1.0 [facility] Comment on above: Order Comment: No: D o not add to previous draw Performed By: #### 6 1405 #### [facility] [address] [place] [address], [facility] Lymphocytes (Bld) [#/Vol] 0.4 10*3/uL Low 1.2-4.0 [facility] Comment on above: Order Comment: No: D o not add to previous draw Performed By: #### 6 1405 #### [facility] [address] [place] [id number], [facility] Lymphocytes/100 WBC (Bld) 7.1 % Low 20.0-45.0 [facility] Comment on above: Order Comment: No: D o not add to previous draw Performed By: #### 6 1405 #### [facility] [address] [place] [address], [facility] MCH (RBC) [Entitic mass] 29.5 pg Normal 27.0-33.0 [facility] Comment on above: Order Comment: No: D o not add to previous draw Performed By: #### 6 1405 #### [facility] [address] [place] [id number], [facility] MCHC (RBC) [Mass/Vol] 34.9 g/dL Normal 32.0-35.0 [facility] Comment on above: Order Comment: No: D o not add to previous draw Performed By: #### 6 1405 #### [facility] [address] [place] [address], [facility] MCV (RBC) [Entitic vol] 84.6 fL Normal 82.0-98.0 [facility] Comment on above: Order Comment: No: D o not add to previous draw Performed By: #### 6 1405 #### [facility] [address] [place] [address], [facility] Monocytes (Bld) [#/Vol] 0.2 10*3/uL Normal 0.1-1.0 [facility] Comment on above: Order Comment: No: D o not add to previous draw Performed By: #### 6 1405 #### [facility] [address] [facility] [place] [address], [facility] MONOS 4.2 % Low 5.0-12.0 [facility] Comment on above: Order Comment: No: D o not add to previous draw Performed By: #### 6 1405 #### [facility] [address] [facility] [place] [address], [facility] Neutrophils/100 WBC (Bld) 87.4 % High 40.0-72.0 [facility] Comment on above: Order Comment: No: D o not add to previous draw Performed By: #### 6 1405 #### [facility] [address] [place] [address], [facility] Nucleated RBC/100 WBC (Bld) [Ratio] 0 % Normal 0-0 [facility] Comment on above: Order Comment: No: D o not add to previous draw Performed By: #### 6 1405 #### [facility] [address] [place] [address], [facility] PLAT CNT 286 10*3/uL Normal 150-400 [facility] Comment on above: Order Comment: No: D o not add to previous draw Performed By: #### 6 1405 #### [facility] [address] [facility] [place] [address], [facility] RBC (Bld) [#/Vol] 5.39 10*6/uL Normal 4.20-5.70 [facility] Comment on above: Order Comment: No: D o not add to previous draw Performed By: #### 6 1405 #### [facility] [address] [facility] [place] [address], [facility] WBC (Bld) [#/Vol] 5.47 10*3/uL Normal 4.00-10.60 [facility] Comment on above: Order Comment: No: D o not add to previous draw Performed By: #### 6 1405 #### [facility] [address] [facility]. [address] CPKon 08-03-2020 CK [Catalytic activity/Vol] 168 U/L Normal 30-223 [facility] Comment on above: Order Comment: No: D o not add to previous draw Pt in bath room askme to come back Performed By: #### 3 7810 #### [facility] [address] [facility]. [address] D DIMER TESTon 08-03-2020 D-DIMER TEST 5.09 mcg/mL FEU High 0.27-0.49 [facility] Comment on above: Order Comment: No: [...] AND CONFIRMED Performed By: #### 5 3629 ####[facility] [place] [address], [facility] FERRITINon 08-03-2020 Ferritin [Mass/Vol] 1079 ng/mL High 24-336 [facility] Comment on above: Order Comment: No: D o not add to previous draw Pt in bath room askme to come back Performed By: #### 3 5200 #### [facility] [address] [facility] [place] [address], [facility] LDH BLOODon 08-03-2020 LDH 623 Units/L High 140-271 [facility] Comment on above: Order Comment: No: D o not add to previous draw Pt in bath room askme to come back Performed By: #### 3 5200 #### [facility] [address] [place] [address], [facility] LIVER BATTERYon 08-03-2020 Albumin [Mass/Vol] 3.6 g/dL Normal 3.5-5.7 [facility] Comment on above: Order Comment: Yes: Add to Previous draw if able Performed By: #### 2 5508, 27919, 65575, 11613, 40172 #### [facility] [address] [place] [address], [facility] ALKALINE PHOSPH 91 IU/L Normal 34-104 [facility] Comment on above: Order Comment: Yes: Add to Previous draw if able Performed By: #### 2 5508, 49797, 51433, 69604, 73812 #### [facility] [address] [place] [address], [facility] ALT [Catalytic activity/Vol] 34 U/L Normal 7-52 [facility] Comment on above: Order Comment: Yes: Add to Previous draw if able Performed By: #### 2 5508, 27938, 68805, 89130, 43824 #### [facility] [address] [place] [address], [facility] AST [Catalytic activity/Vol] 40 U/L High 13-39 [facility] Comment on above: Order Comment: Yes: Add to Previous draw if able Performed By: #### 2 5508, 41479, 09988, 88235, 28780 #### [facility] [address] [place] [address], [facility] Bilirubin [Mass/Vol] 0.7 mg/dL Normal 0.3-1.0 [facility] Comment on above: Order Comment: Yes: Add to Previous draw if able Performed By: #### 2 5508, 74268, 96180, 67075, 94687 #### [facility] [address] [place] [address], [facility] Bilirubin.direct [Mass/Vol] 0.1 mg/dL Normal 0.0-0.2 [facility] Comment on above: Order Comment: Yes: Add to Previous draw if able Performed By: #### 2 5508, 76796, 24027, 87196, 84259 #### [facility] [address] [place] [address], [facility] Protein [Mass/Vol] 6.3 g/dL Normal 6.0-8.3 [facility] Comment on above: Order Comment: Yes: Add to Previous draw if able Performed By: #### 2 5508, 57922, 44318, 86707, 57818 #### [facility] [address] [place] [address], [place] MAGNESIUM BLOODon 08-03-2020 Magnesium [Mass/Vol] 2.3 mg/dL Normal 1.9-2.7 [facility] Comment on above: Order Comment: No: D o not add to previous draw Pt in bath room askme to come back Performed By: #### 3 9660 #### [facility] [address] [address], [facility] PHOSPHORUS BLOODon Phosphate [Mass/Vol] 3.6 mg/dL Normal 2.5-5.0 [facility] Comment on above: Order Comment: No: D o not add to previous draw Pt in bath room askme to come back Performed By: #### 3 5200 #### [address] [address], [facility] PORTABLE CHEST 1 VIEWon 07-16 PORTABLE CHEST 1 VIEW [facility] Department of Radiology [address] [place] [id number] ===== Patient Name: VISHAL DUKE : 1960 Sex: M Age: Race: White Pt. Location: [id number] Patient Status: I Ordered Date: 08/03/2020 8:00:00 AM Completed Date: 08/03/2020 07:32 AM Requesting Provider: WILLARD DIMAS Attending Provider: HPANI SAPP Report Copy To: Signs & Symptoms: Shortness of Breath History: Comments: evaluate for Pneumonia Exam: PORTABLE CHEST 1 VIEW ===== PORTABLE CHEST 1 VIEW 08/03/2020 7:32 AM [...] pneumonia. Electronically signed: Dariela Vincent. Transcribed by: [email or web address], User Resident: Electronically Signed by: DARIELA VINCENT @ 08/03/2020 07:52 AM Normal [facility] Comment on above: Order Comment: No: D o not add to previous draw CV'D BY IMM LAB AT 1240 PROCALCITONINon 08-03-2020 PROCALCITONIN 0.31 ng/mL High 0.00-0.10 [facility] Comment on above: Order Comment: No: [...] and initial PCT<0.5ng/mL Performed By: #### 2 6528, 88167, 97874, 10187, 06713 #### [facility] [address] TACROLIMUSon 08-03-2020 Tacrolimus (Bld) [Mass/Vol] 24.9 ng/mL High 5.0-20.0 [facility] Comment on above: Order Comment: Yes: Add to Previous draw if able Result Comment: The [employer] Tacrolimus assay is a delayed one-step immunoassay for the quantitative determination of tacrolimus in human whole blood using the chemiluminescent microparticle immunoassay (CMIA) technology with flexible assay protocols, referred to as Chemiflex. Performed By: #### 2 5508, 05376, 15007, 33007, 01596 #### [facility] [address] TROPONIN-Ion 08-03-2020 Troponin I.cardiac [Mass/Vol] 0.01 ng/mL Normal 0.00-0.04 [facility] Comment on above: Order Comment: No: D o not add to previous draw Pt in bath room askme to come back Result Comment: REFE RENCE RANGES: 0.00 - 0.04 ng/ml NORMAL 0.05 - 0.50 ng/ml INDETERMINATE > 0.50 ng/ml CONSISTENT WITH AN M.I. Performed By: #### 3 5200 #### [facility] [address] URINALYSIS REFLEXon 08-04-19 21 Appearance (U) CLEAR Normal CLEAR [facility] Comment on above: Order Comment: No: D o not add to previous draw CV'D BY IMM LAB AT [facility] Performed By: #### 6 1405 #### [facility] [address] [place] [address], [facility] Bilirubin Ql (U) Negative Normal NEGATIVE [facility] Comment on above: Order Comment: No: D o not add to previous draw CV'D BY IMM LAB AT [facility] Performed By: #### 6 1405 #### [facility] [address] [place] [address], [facility] Color (U) YELLOW Normal YELLOW [facility] Comment on above: Order Comment: No: D o not add to previous draw CV'D BY IMM LAB AT 1240 Performed By: #### 6 1405 #### [facility] [address] [place] [address], [place] EPIS NONE SEEN Normal FEW,OCC,NONE SEEN [facility] Comment on above: Order Comment: No: D o not add to previous draw CV'D BY IMM LAB AT 1240 Performed By: #### 6 1405 #### [facility] [address] [place] [address], [place] Glucose Ql (U) Negative Normal NEGATIVE [facility] Comment on above: Order Comment: No: D o not add to previous draw CV'D BY IMM LAB AT 1240 Performed By: #### 6 1405 #### [facility] [address] [place] [address], [place] Hemoglobin Ql (U) TRACE, RESULTS CHECKED Abnormal NEGATI VE [facility] Comment on above: Order Comment: No: D o not add to previous draw CV'D BY IMM LAB AT 1240 Performed By: #### 6 1405 #### [facility] [address] [place] [address], [place] KETONE Negative Normal NEGATIVE [facility] Comment on above: Order Comment: No: D o not add to previous draw CV'D BY IMM LAB AT 1240 Performed By: #### 6 1405 #### [facility] [address] [place] [address], [place] LEUK MARIA A Negative Normal NEGATIVE [facility] Comment on above: Order Comment: No: D o not add to previous draw CV'D BY IMM LAB AT 1240 Performed By: #### 6 1405 #### [facility] [address] [place] [address], [place] Nitrite Ql (U) Negative Normal NEGATIVE [facility] Comment on above: Order Comment: No: D o not add to previous draw CV'D BY IMM LAB AT 1240 Performed By: #### 6 1405 #### [facility] [address] [place] [address], [facility] pH (U) 6.0 [pH] Normal 5.0-8.0 [facility] Comment on above: Order Comment: No: D o not add to previous draw CV'D BY IMM LAB AT 1240 Performed By: #### 6 1405 #### [facility] [address] [place] [address], [facility] Protein Ql (U) Negative Normal NEGATIVE [facility] Comment on above: Order Comment: No: D o not add to previous draw CV'D BY IMM LAB AT 1240 Performed By: #### 6 1405 #### [facility] [address] [place] [address], [facility] RBC 3-5 Abnormal NONE SEEN [facility] Comment on above: Order Comment: No: D o not add to previous draw CV'D BY IMM LAB AT 1240 Performed By: #### 6 1405 #### [facility] [address] [facility] [place] [address], [facility] SPEC GRAV 1.017 Normal 1.015-1.020 [facility] Comment on above: Order Comment: No: D o not add to previous draw CV'D BY IMM LAB AT 1240 Performed By: #### 6 1405 #### [facility] [address] [facility] [place] [address], [facility] WBC UA 0-2 Abnormal NONE SEEN [facility] Comment on above: Order Comment: No: D o not add to previous draw CV'D BY IMM LAB AT [facility] Performed By: #### 6 1405 #### [facility] [address] [facility] [place] [address], [facility] Vital Signs Date Time Vital Sign Value Performing Clinician Facility 01-29-2024 15: Body height 180.3 cm Nicki Velez [employer] Work Phone: [facility] 01-29-2024 15:10-0400 Body mass index (BMI) [Ratio] 27.89 kg/m2 Nicki Velez [employer] Work Phone: [facility] 01-29-2024 15:10-0400 Body weight 90.72 kg Nicki Velez [employer] Work Phone: [facility] 01-29-2024 15:10-0400 Diastolic blood pressure 64 mm[Hg] Nicki Velez [employer] Work Phone: [facility] 01-29-2024 15:10-0400 Heart rate 56 /min Nicki Velez [employer] Work Phone: [facility] 01-29-2024 15:10-0400 SaO2% (BldA) [Mass fraction] 95 % Nicki Vleez [employer] Work Phone: [facility] 01-29-2024 15:10-0400 Systolic blood pressure 124 mm[Hg] Nicki Velez [employer] Work Phone: [facility] 01-26-2024 12:00-0400 Body height 180.3 cm Nicki Velez [employer] Work Phone: [facility] 01-26-2024 12:00-0400 Body mass index (BMI) [Ratio] 27.89 kg/m2 Nicki Velez [employer] Work Phone: [facility] 01-26-2024 12:00-0400 Body weight 90.72 kg Nicki Velez [employer] Work Phone: [facility] 01-26-2024 12:00-0400 Diastolic blood pressure 70 mm[Hg] Nicki Velez [employer] Work Phone: [facility] 01-26-2024 12:00-0400 Heart rate 69 /min Nicki Velez [employer] Work Phone: [facility] 01-26-2024 12:00-0400 SaO2% (BldA) [Mass fraction] 97 % Nicki Velez [employer] Work Phone: [facility] 01-26-2024 12:00-0400 Systolic blood pressure 120 mm[Hg] Nicki Velez [employer] Work Phone: [facility] 01-11-2024 10:35-0400 Diastolic blood pressure 75 mm[Hg] Schmidt Sarmini [facility] 01-11-2024 10:35-0400 Heart rate 60 /min Schmidt Sarmini [facility] 01-11-2024 10:35-0400 Mean blood pressure 88 mm[Hg] Schmidt Sarmini [facility] 01-11-2024 10:35-0400 Respiratory rate 18 /min Schmidt Sarmini [facility] 01-11-2024 10:35-0400 SaO2% (BldA) [Mass fraction] 93 % Schmidt Sarmini [facility] 01-11-2024 10:35-0400 Systolic blood pressure 114 mm[Hg] Schmidt Sarmini [facility] 01-11-2024 10:25-0400 Diastolic blood pressure 64 mm[Hg] Schmidt Sarmini [facility] 01-11-2024 10:25-0400 Heart rate 70 /min Schmidt Sarmini [facility] 01-11-2024 10:25-0400 Mean blood pressure 79 mm[Hg] Schmidt Sarmini [facility] 01-11-2024 10:25-0400 Respiratory rate 20 /min Schmidt Sarmini [facility] 01-11-2024 10:25-0400 SaO2% (BldA) [Mass fraction] 94 % Schmidt Sarmini [facility] 01-11-2024 10:25-0400 Systolic blood pressure 110 mm[Hg] Schmidt Sarmini [facility] 01-11-2024 10:10-0400 Body temperature 97.7 [degF] Schmidt Sarmini [facility] 01-11-2024 10:10-0400 Diastolic blood pressure 59 mm[Hg] Schmidt Sarmini [facility] 01-11-2024 10:10-0400 Heart rate 70 /min Schmidt Sarmini [facility] 01-11-2024 10:10-0400 Mean blood pressure 71 mm[Hg] Schmidt Sarmini [facility] 01-11-2024 10:10-0400 Respiratory rate 19 /min Schmidt Sarmini [facility] 01-11-2024 10:10-0400 SaO2% (BldA) [Mass fraction] 95 % Schmidt Sarmini [facility] 01-11-2024 10:10-0400 Systolic blood pressure 96 mm[Hg] Schmidt Sarmini [facility] 01-11-2024 10:05-0400 Respiratory rate 22 /min Schmidt Sarmini [facility] 01-11-2024 09:55-0400 Respiratory rate 22 /min Schmidt Sarmini [facility] 01-11-2024 08:46-0400 Blood Pressure Location Schmidt Sarmini [facility] 01-11-2024 08:46-0400 Body temperature 97.52 [degF] Schmidt Sarmini [facility] 12-25-2023 09:28-0400 Diastolic blood pressure 88 mm[Hg] Schmidt Sarmini [facility] 12-25-2023 09:28-0400 Mean blood pressure 107 mm[Hg] Schmidt Sarmini [facility] 12-25-2023 09:28-0400 Systolic blood pressure 146 mm[Hg] Schmidt Sarmini [facility] 12-25-2023 09:14-0400 Blood Pressure Location Schmidt Sarmini [facility] 12-25-2023 09:14-0400 Diastolic blood pressure 85 mm[Hg] Schmidt Sarmini [facility] 12-25-2023 09:14-0400 Heart rate 60 /min Schmidt Sarmini [facility] 12-25-2023 09:14-0400 Systolic blood pressure 152 mm[Hg] Schmidt Sarmini [facility] 01-17-2022 11:53-0400 Blood Pressure Location Reji BROWER [facility] 01-17-2022 11:53-0400 Diastolic blood pressure 81 mm[Hg] Reji BROWER [facility] 01-17-2022 11:53-0400 Heart rate 63 /min Reji BROWER [facility] 01-17-2022 11:53-0400 Respiratory rate 18 /min Reji BROWER [facility] 01-17-2022 11:53-0400 Systolic blood pressure 129 mm[Hg] Reji BROWER [facility] 04-23-2021 17:40-0500 Diastolic blood pressure 70 mm[Hg] Rosa M Gonzales Work Phone: [facility] DO Work Phone: 04-23-2021 17:40-0500 Systolic blood pressure 138 mm[Hg] Rosa M Gonzales Work Phone: [facility] DO Work Phone: 04-23-2021 15:22-0500 Body height 180.34 cm Rosa M Gonzales Work Phone: [facility] 250 DO Work Phone: 04-23-2021 15:22-0500 Body mass index (BMI) [Ratio] 29.57 kg/m2 Rosa M Gonzales Work Phone: [facility] 250 DO Work Phone: 04-23-2021 15:22-0500 Body surface area Derived from formula 2.16 m2 Rosa M Gonzales Work Phone: [facility] 250 DO Work Phone: 04-23-2021 15:22-0500 Body weight 96.16 kg Rosa M Gonzales Work Phone: [facility] 250 DO Work Phone: 04-23-2021 15:22-0500 Diastolic blood pressure 77 mm[Hg] Rosa M Gonzales Work Phone: [facility] 250 DO Work Phone: 04-23-2021 15:22-0500 Heart rate 61 /min Rosa M Gonzales Work Phone: [facility] [facility] DO Work Phone: 04-23-2021 15:22-0500 Systolic blood pressure 142 mm[Hg] Rosa M Gonzales Work Phone: -[facility] 250 DO Work Phone: Encounters Encounter Date Encounter Type Care Provider Facility Start: 03-04-2024 ambulatory Rejiraghavendra BROWER [facility] ty:[facility] [place] Start: 01-29-2024 End: 01-29-2024 Office outpatient visit 15 minutes Nicki Velez NP Work Phone: [facility] Comment on above: Herpes zoster with c omplication (Primary Dx); Type 2 diabetes mellitus without complications (CMS/HCC); Immunodeficiency, unspecified (CMS/HCC); Chronic systolic (congestive) heart failure (CMS/HCC); Chronic obstructive pulmonary disease, unspecified (CMS/HCC); Cardiomyopathy, unspecified (CMS/HCC) Start: 01-29-2024 End: 01-29-2024 ambulatory NICKI VELEZ Not Available Start: 01-29-2024 End: 01-29-2024 ambulatory Reji BROWER Facility:[facility] [place] Start: 01-26-2024 End: 01-26-2024 Office outpatient visit 15 minutes Nicki Velez [employer] LEADER Work Phone: [facility] Comment on above: Encounter for immuni zation (Primary Dx); Tinea corporis; Type 2 diabetes mellitus without complications (CMS/HCC) Start: 01-26-2024 End: 01-26-2024 ambulatory NICKI VELEZ Not Available Start: 01-25-2024 End: 01-25-2024 Clinisync Result Encounter Generic External Data Provider [facility] External Department Unsolicited Start: 01-25-2024 End: 01-25-2024 Clinisync Result Encounter Generic External Data Provider [facility] External Department Unsolicited Start: 01-11-2024 End: 01-11-2024 ambulatory Xochilt Graham Facility:[facility] Start: 01-11-2024 End: 01-11-2024 Patient encounter procedure Xochilt Graham [facility] Start: 12-25-2023 End: 12-25-2023 ambulatory Xochilt Graham Facility:[facility] Start: 12-25-2023 End: 12-25-2023 Patient encounter procedure Xochilt Graham [facility] Start: 11-29-2023 End: 11-29-2023 ambulatory EFREN CENTENO Not Available Start: 11-23-2023 End: 11-23-2023 ambulatory ROSA M GONZALES Not Available Start: 11-20-2023 End: 11-20-2023 ambulatory [facility] Start: 11-07-2023 End: 11-07-2023 ambulatory [facility] Start: 10-30-2023 End: 10-30-2023 ambulatory ALICIA A PETITTI Not Available Start: 10-06-2023 End: 10-06-2023 [facility] Start: 07-27-2023 End: 07-27-2023 ambulatory ROSA M GONZALES Not Available Start: 06-05-2023 End: 06-05-2023 ambulatory [facility] Start: 05-29-2023 Clinisync Result Encounter Generic External Data Provider [facility] External Department Unsolicited Start: 05-29-2023 Clinisync Result Encounter Generic External Data Provider [facility] External Department Unsolicited Start: 05-18-2023 End: 05-18-2023 ambulatory [facility] Start: 05-01-2023 End: 05-01-2023 ambulatory ALICIA A PETITTI Not Available Start: 04-26-2023 End: 04-26-2023 ambulatory [facility] Start: 03-28-2023 ambulatory PETEY REDDING [facility] Start: 02-09-2023 End: 02-09-2023 ambulatory OBI EKWENNA [facility] Start: 02-02-2023 ambulatory Xochilt Graham Facility:[facility] Start: 08-18-2022 End: 08-19-2022 ambulatory [...] encounter procedure Reji BROWER [facility] Start: 09-28-2021 End: 09-29-[address] FEDERICO HCESTER Facility:[facility] Start: 05-15-2021 End: 06-07-2021 ambulatory ROSA M GONZALES Facility:[facility] Start: 04-23-2021 Office outpatient vi sit 25 minutes Rosa M Gonzales Work Phone: [facility] 250 DO Work Phone: Start: 12-02-2020 End: 12-04-2020 Evaluation and management of inpatient YONAS HERRERA Facility:[facility] Start: 12-01-2020 End: 12-01-2020 Emergency department patient visit REFERRED SELF Facility:[facility] Start: 10-29-2020 End: 10-30-2020 ambulatory ROSA M GONZALES Facility:[facility] Start: 08-02-2020 End: 08-19-2020 Evaluation and management of inpatient JUAN FERREIRA Facility:[facility] Procedures Date Procedure Procedure Detail Performing Clinician Start: 01-26-2024 Colonoscopy Nicki Velez NP Work Phone: Start: 01-25-2024 MHPT PSA, DIAGNOSTIC Generic External Data Provider Start: 01-11-2024 Colonoscopy Nicki Agustin COLLAZO Work Phone: Start: 01-11-2024 Colonoscopy Xochilt Cabai Start: 01-11-2024 Esophagogastroduodenoscopy Schmidtamador Lee ini Start: 12-25-2023 History of renal transplant Schmidt Jb al Gladys Start: 05-29-2023 TACROLIMUS ([id number]), BLOOD Generic Entry Level Software Developer al Data Provider Start: 11-08-2022 History of placement of stent in anterior descending branch of left coronary artery Status post insertion of drug-eluting stent into left anterior descending (LAD) artery for coronary artery disease Generic Provider Start: 12-03-2020 INTRODUCTION OF OTHER GAS INTO RESP TRACT, VIA OPENING SARMED FLOR Start: 08-03-2020 INTRODUCE REMDESIVIR IN PERIP VEIN, PERC, NEW TECH 5 YOJANA N HORANI Start: 08-03-2020 INTRODUCTION OF OTHER GAS INTO RESP TRACT, VIA OPENING YOJANA N HORANI Start: 12-30-2019 History of renal transplant History of kidney transplant Generic Provider Start: 01-01-2018 Transplant of kidney Reji BROWER Comment on above: Pt has three kidneys Start: 02-01-2013 Colonoscopy Generic Provider Bilateral vasectomy Reji BROWER Cardiac catheterization Anne Gonzales Work Phone: Colonoscopy Schmidtamador Olmsteadjarrod i Coronary artery bypass graft Rosa M Gonzales Work Phone: Coronary artery bypass grafts x 3 Reji BROWER Creation of graft fi stula for dialysis Rosa M Gonzales Work Phone: Extraction of wisdom tooth J durga Gonzales Work Phone: History of renal transplant Tania l transplant recipient Rosa M Gonzales Work Phone: History of renal transplant Hudson mccabe transplanted( Confirmed ) Reji BROWER Insertion of pacemak er pulse generator Rosa M Gonzales Work Phone: Placement of stent i n cardiac conduit Reji BROWER Total colonoscopy Rosa M Gonzales Work Phone: Transplant of kidney Kane Gonzales Work Phone: Plan of Treatment Date Care Activity Detail Author Start: 01-25-2034 Screening for malign ant neoplasm [facility] Start: 01-10-2034 Screening for malign ant neoplasm of colon [facility] Start: 10-25-2024 Glaucoma screening Diabetes: R etinopathy Screening [facility] Start: 07-26-2024 Medicare Annual Well ness (AWV) Medicare Annual Wellness (AWV) [facility] Start: 05-18-2024 Urine screening for protein Diabetes: Urine Protein Screening [facility] Start: 05-02-2024 End: 05-02-2024 Patient encounter procedure 05/02/2024 10:50 AM EST Office Visit [facility] [address] [place] [phone] Alicia Fishman MD [address] [place], [place] [id number] [facility] Start: 12-17-2023 Influenza vaccination Influenza Vacc ine (#1) [facility] Start: 11-09-2023 Medicare Annual Well ness (AWV) Medicare Annual Wellness (AWV) [facility] Start: 10-30-2023 End: 10-30-2023 Patient encounter procedure 10/30/2023 10:05 AM EDT Office Visit [facility] [address] [place] [phone] Alicia Fishman MD [address] [place] [address] [facility] Start: 08-16-2023 Hemoglobin A1c measurement Diabetes: Hemoglobin A1C [facility] Start: 02-01-2023 Screening for malign ant neoplasm of colon [facility] Start: 1960 Screening for malign ant neoplasm of colon [facility] Immunizations Immunization Date Immunization Notes Care Provider Fa cility 01-26-2024 influenza, seasonal, injectable, preservative free Nicki eVlez NP Work Phone: [facility] 01-13-2023 influenza virus vaccine, unspecified formulation Schmidt Sarmini [facility] 01-13-2023 influenza, injectabl e, quadrivalent, preservative free Generic Provider [facility] 01-13-2022 influenza virus vaccine, unspecified formulation Schmidt Sarmini [facility] 01-13-2022 influenza, injectabl e, quadrivalent, preservative free Generic Provider [facility] 12-30-2021 Moderna Bivalent Booster Vaccination Generic Provider [facility] 12-30-2021 Moderna SARS-CoV-2 50mcg/0.5mL Booster Generic Provider [facility] 12-30-2021 SARS-CoV-2, Unspecified Generic Provider [facility] 07-21-2021 SARS-CoV-2 (COVID-19 ) mRNA-1273 vaccine Schmidt Sarmini [facility] Comment on above: Result Comment: 2023: [id number] 02-01-2021 influenza virus vaccine, unspecified formulation Schmidt Sarmini [facility] 02-01-2021 Seasonal, quadrivalent, recombinant, injectable influenza vaccine, preservative free Rosa M Gonzales Work Phone: [facility] 250 DO Work Phone: 01-06-2021 Moderna COVID-19 Vaccine 100 MCG/0.5ML Intramuscular Suspension Rosa M Gonzales Work Phone: [facility] Comment on above: Result Comment: 2023: [id number] 07-10-2020 Moderna COVID-19 Vaccine 100 MCG/0.5ML Intramuscular Suspension Rosa M Gonzales Work Phone: [facility] Comment on above: Result Comment: 2023: [id number] 06-12-2020 Moderna COVID-19 Vaccine 100 MCG/0.5ML Intramuscular Suspension Rosa M Gonzales Work Phone: [facility] Comment on above: Result Comment: 2023: [id number] 01-27-2020 influenza virus vaccine, unspecified formulation Schmidt Sarmini [facility] 01-27-2020 influenza, seasonal, injectable Rosa M Gonzales Work Phone: [facility] [employer] DO Work Phone: 01-22-2020 influenza virus vaccine, unspecified formulation Schmidt Sarmini [facility] 01-22-2020 Seasonal trivalent influenza vaccine, adjuvanted, preservative free Generic Provider [facility] 01-16-2020 influenza virus vaccine, unspecified formulation Rosa M Gonzales Work Phone: [facility] 01-16-2020 influenza, seasonal, injectable Generic Provider [facility] 02-05-2019 influenza virus vaccine, unspecified formulation Schmidt Sarmini [facility] 02-05-2019 Seasonal, quadrivalent, recombinant, injectable influenza vaccine, preservative free Rosa M Gonzales [facility]: [facility] Work Phone: 05-11-2018 influenza virus vaccine, unspecified formulation Schmidt Sarmini [facility] 05-11-2018 influenza, injectabl e, quadrivalent, preservative free Rosa M R Janet [facility] Work Phone: 02-16-2018 influenza virus vaccine, unspecified formulation Schmidt Sarmini [facility] 02-16-2018 influenza, injectabl e, quadrivalent, preservative free Rosa M R Janet Work Phone: [facility] [employer] DO Work Phone: 06-08-2017 influenza virus vaccine, unspecified formulation Schmidt Sarmini [facility] 06-08-2017 influenza, injectabl e, quadrivalent, preservative free Rosa M R Janet Work Phone: [facility] [employer] DO Work Phone: 12-16-2016 influenza virus vaccine, unspecified formulation Schmidt Sarmini [facility] 12-16-2016 influenza, injectabl e, quadrivalent, contains preservative Rosa M R Janet Work Phone: [facility] [employer] DO Work Phone: 01-28-2015 influenza virus vaccine, unspecified formulation Schmidt Sarmini [facility] 01-28-2015 influenza, seasonal, injectable Rosa M R Janet Work Phone: [facility] [employer] DO Work Phone: 07-10-2014 Moderna SARS-CoV-2 Vaccination Generic Provider [facility] 04-27-2012 influenza virus vaccine, whole virus Rosa M Gonzales Work Phone: [facility] 250 DO Work Phone: 04-27-2012 influenza, whole Xochilt pradoini [facility] NEGATED: Highlighted row has not occurred!12-25-2023 influenza virus vaccine, unspecified formulation Xochilt Graham [facility] Payers Date Payer Category Payer Medicare (Managed Care) [employer] [id number] 2023 Private Health Insurance [id number] 2022 Private Health Insurance [facility] [id number] 2022-Present [address] [address] [place] [address] [id number] 2016 Medicare [id number] 1960 Unknown [id number] 2.16.840.1.639046.3.579. 2.647 1960 Unknown [id number] 2.16.840.1.936504.3.579. 2.647 1960 Unknown [id number] 2.16.840.1.209769.3.579. 2.647 1960 Unknown [id number] 2.16.840.1.633489.3.579. 2.647 1960 Unknown [id number] 2.16.840.1.724547.3.579. 2.647 1960 Unknown [id number] 2.16.840.1.101282.3.579. 2.593 1960 Unknown [id number] 2.16.840.1.062261.3.579. 2.593 1960 Unknown [id number] 2.16.840.1.622235.3.579. 2.593 1960 Unknown [id number] 2.16.840.1.982528.3.579. 2.593 1960 Unknown [id number] 2.16.840.1.831162.3.579. 2.593 1960 Unknown [id number] 2.16.840.1.425567.3.579. 2.593 1960 Unknown [id number] 2.16.840.1.206885.3.579. 2.593 1960 Unknown [id number] 2.16.840.1.578815.3.579. 2.593 1960 Unknown [id number] 2.16.840.1.213308.3.579. 2.593 1960 Unknown [id number] 2.16.840.1.897489.3.579. 2.727 1960 Unknown [id number] 2.16.840.1.169911.3.579. 2.1259 1960 Unknown [id number] 2.16.840.1.625413.3.579. 2.1259 1960 Unknown [id number] 2.16.840.1.056027.3.579. 2.1259 1960 Unknown [id number] 2.16.840.1.363112.3.579. 2.1259 1960 Unknown [id number] 2.16.840.1.447798.3.579. 2.1259 1960 Unknown [id number] 2.16.840.1.545997.3.579. 2.1259 1960 Unknown [id number] 2.16.840.1.301830.3.579. 2.1259 1960 Unknown [id number] 2.16.840.1.347645.3.579. 2.727 1960 Unknown [id number] 2.16.840.1.211785.3.579. 2.727 1960 Unknown [id number] 2.16.840.1.314586.3.579. 2.727 1959 Medicare [id number] 1959 Private Health Insurance [id number] Unknown Social History Date Type Detail Facility Start: 11-01-2022 End: 05-01-2023 No alcohol use No alcohol use [facility] Comment on above: 1-2 cups of coffee d aily.; Quit in 2008; Start: 01-01-2020 End: 10-30-2023 Tobacco smoking status Ex-smoker (finding) [facility] Start: 11-01-2022 End: 11-23-2023 Sex Assigned At Male [facility] End: 04-17-2007 History of tobacco use Current smoker [facility] End: 04-17-2007 History of tobacco use Cigarette Smoker [facility] Start: 11-06-2022 End: 10-30-2023 Tobacco use and exposure Smokeless tobacco non-user [facility] Start: 05-01-2023 End: 01-29-2024 Alcohol intake Ex-drinker (finding) [facility] Within the last year , have you been afraid of your partner or ex-partner? No [facility] Do you belong to any clubs or organizations such as nondenominational groups, unions, fraternal or athletic groups, or [...] intak e : 1-2 cups per day [facility] Start: 1960 Sex Assigned At Not on file [facility] Start: 06-29-2022 Gender identity Identifies as male gender (finding) [facility] Functional Status Date Assessment Result Facility 01-11-2024 Functional Status N/A [facility] 12-25-2023 Functional Status N/A [facility] 01-17-2022 Functional Status N/A [facility] Clinical Notes 08-20-2020 to 01-29-2024 Nicki Velez NP - 01/29/2024 3:00 PM Kaur Velez NP - 01/26/2024 12:00 PM EDT Note Date & Type Note Facility 01-29-2024 History of Presen t illness Narrative Vishal Duke is a 63 y.o. male presents with chief complaint of Rash HPI: HPI Presents to the office to worsening rash. Developed vesicles over the weekend. Rash feels like it is burning type pain. SUBJECTIVE: MEDICATIONS: Current Outpatient Medications Medication Instructions albuterol HFA 90 mcg/act inhaler 2 puffs, Inhalation, Every 4 hours PRN aspirin 81 mg, Daily atorvastatin (LIPITOR) 80 mg, Daily clopidogrel (Plavix) 75 MG tablet Daily empagliflozin (JARDIANCE) 10 mg, Oral, Daily RT esomeprazole (NexIUM) [address] capsule 1 capsule, Daily isosorbide mononitrate ER (Imdur) 60 MG 24 hr tablet TAKE 1 TABLET BY MOUTH IN THE MORNING do not crush or chew ketoconazole (NIZOral) 2 % cream Topical, Daily, Apply thin layer to affected area daily lisinopril 5 MG tablet Daily magnesium oxide (Mag-Ox) 400 (240 Mg) MG tablet TAKE 1 TABLET BY MOUTH THREE TIMES DAILY (IN THE MORNING, IN THE EVENING, and BEFORE bedtime) metoprolol succinate XL (TOPROL-XL) 100 mg, Daily mycophenolate (Myfortic) 180 MG EC tablet TAKE 3 TABLETS BY MOUTH TWICE DAILY IN THE MORNING AT BEDTIME nitroglycerin (NITROSTAT) 0.4 mg, Sublingual, Every 5 min PRN ranolazine (RANEXA) 500 mg, 2 times daily tacrolimus (PROGRAF) 0.5 mg, 2 times daily REVIEW OF SYMPTOMS: Review of Systems OBJECTIVE: Visit Vitals BP 124/64 (BP Location: Right arm, Patient Position: Sitting, BP Cuff Size: Large adult) Pulse 56 Ht 5' 11 Wt 200 lb SpO2 95% BMI 27.89 kg/m Smoking Status Former BSA 2.13 m Physical Exam Vitals reviewed. HENT: Head: Normocephalic and atraumatic. Nose: Nose normal. Mouth/Throat: Mouth: Mucous membranes are moist. Eyes: Pupils: Pupils are equal, round, and reactive to light. Cardiovascular: Rate and Rhythm: Normal rate and regular rhythm. Pulses: Normal pulses. Heart sounds: Normal heart sounds. Pulmonary: Effort: Pulmonary effort is normal. Breath sounds: Normal breath sounds. Musculoskeletal: Cervical back: Neck supple. Skin: General: Skin is warm and dry. Capillary Refill: Capillary refill takes less than 2 seconds. Findings: Rash present. Comments: Erythematous rash with to neck and right side of chest worsening, spreading to back, small papules and vesicles in circular distribution Neurological: General: No focal deficit present. Mental Status: He is alert and oriented to person, place, and time. ASSESSMENT AND PLAN: Assessment/Plan Diagnoses and all orders for this visit: Herpes zoster with complication - valACYclovir (Valtrex) 1 g tablet; Take 1 tablet (1,000 mg) by mouth in the morning and 1 tablet (1,000 mg) in the evening and 1 tablet (1,000 mg) before bedtime. Do all this for 7 days. -Will have CCM reach out too transplant team to make sure valbonilla is Type 2 diabetes mellitus without complications (CMS/HCC) Immunodeficiency, unspecified (CMS/HCC) Chronic systolic (congestive) heart failure (CMS/HCC) Managed by cardiology Chronic obstructive pulmonary disease, unspecified (CMS/HCC) Cardiomyopathy, unspecified (CMS/HCC) Managed by cardiology documented in this encounter [facility] 01-26-2024 History of Presen t illness Narrative Images from the original note were not included. Vishal Duke is a 63 y.o. male presents with chief complaint of Rash (Along throat/chest, right side. Started couple of days ago. /) HPI: HPI Presents to the office today with complaints of a rash on his neck chest and behind his ear. Started a couple days ago, very pruritic and states it camacho. Started after he was working outside, moving [employer] SUBJECTIVE: MEDICATIONS: Current Outpatient Medications Medication Instructions albuterol HFA 90 mcg/act inhaler 2 puffs, Inhalation, Every 4 hours PRN aspirin 81 mg, Oral, Daily atorvastatin (LIPITOR) 80 mg, Oral, Daily clopidogrel (Plavix) 75 MG tablet Oral, Daily empagliflozin (JARDIANCE) 10 mg, Oral, Daily RT esomeprazole (NexIUM) [address] capsule 1 capsule, Oral, Daily isosorbide mononitrate ER (Imdur) 60 MG 24 hr tablet TAKE 1 TABLET BY MOUTH IN THE MORNING do not crush or chew lisinopril 5 MG tablet Oral, Daily magnesium oxide (Mag-Ox) 400 (240 Mg) MG tablet TAKE 1 TABLET BY MOUTH THREE TIMES DAILY (IN THE MORNING, IN THE EVENING, and BEFORE bedtime) metoprolol succinate XL (TOPROL-XL) 100 mg, Oral, Daily mycophenolate (Myfortic) 180 MG EC tablet TAKE 3 TABLETS BY MOUTH TWICE DAILY IN THE MORNING AT BEDTIME nitroglycerin (NITROSTAT) 0.4 mg, Sublingual, Every 5 min PRN ranolazine (RANEXA) 500 mg, Oral, 2 times daily, Do not crush, chew, or split. tacrolimus (PROGRAF) 0.5 mg, Oral, 2 times daily REVIEW OF SYMPTOMS: Review of Systems OBJECTIVE: Visit Vitals BP 120/70 (BP Location: Right arm, Patient Position: Sitting, BP Cuff Size: Adult) Pulse 69 Ht 5' 11 Wt 200 lb SpO2 97% BMI 27.89 kg/m Smoking Status Former BSA 2.13 m Physical Exam Vitals reviewed. HENT: Head: Normocephalic and atraumatic. Nose: Nose normal. Mouth/Throat: Mouth: Mucous membranes are moist. Eyes: Pupils: Pupils are equal, round, and reactive to light. Cardiovascular: Rate and Rhythm: Normal rate and regular rhythm. Pulses: Normal pulses. Heart sounds: Normal heart sounds. Pulmonary: Effort: Pulmonary effort is normal. Breath sounds: Normal breath sounds. Musculoskeletal: Cervical back: Neck supple. Skin: General: Skin is warm and dry. Capillary Refill: Capillary refill takes less than 2 seconds. Findings: Rash present. Comments: Erythematous rash with to neck and right side of chest, small papules in circular distribution, vesicles noted in lopez. Neurological: General: No focal deficit present. Mental Status: He is alert and oriented to person, place, and time. ASSESSMENT AND PLAN: Assessment/Plan Diagnoses and all orders for this visit: Encounter for immunization Tinea corporis - ketoconazole (NIZOral) 2 % cream; Apply topically Daily for 14 days Apply thin layer to affected area daily -Initiate ketoconazole cream. Can use nizoral shampoo as body wash to help resolve rash. He will purchase it OTC. Instructed to notify office if symptoms persist or worsen. Type 2 diabetes mellitus without complications (CMS/HCC) -Stable with lifestyle modifications documented in this encounter [facility] 01-11-2024 Evaluation + Plan note Extrac remedios from: Title:ANES Post-operative Note - General Author: Ivan Orozco Jr., DO Date:01/11/24 Plan Transfer/Discharge: Transfer/Discharge Discharge when meets criteria ( From PACU to Ambulatory Surgery Unit, and To home ). Extracted from: Title:1Preop H&P Author:Gladys FRANK, Xochilt tam Date:01/11/24 Impression and Plan Impression: Screening for colon cancer, history of hyperplastic polyps, GERD Plan: -EGD and Colonoscopy Extracted from: Title:ANES Pre-operative Note - Endo Author:Ivan Rodriguez Jr., DO Date:01/11/24 Plan [place] [employer]hesiologists (ASA) physical status classification: Class III. Anesthetic Preoperative Plan: Anesthesia General, and -TIVA. Future Appointments Appointment Date:01/29/2024 10:30:00 AM Scheduled Provider:Reji BROWER MD Location:[facility] Appointment Type:URO Office Visit [facility] 09-26-2024 Hospital Discharge instructions Patient Education 01/11/2024 10:20:47 Hiatal Hernia Hiatal Hernia A hiatal hernia occurs when part of the stomach slides above the muscle that separates the abdomen from the chest (diaphragm). A person can be born with a hiatal hernia (congenital), or it may develop over time. In almost all cases of hiatal hernia, only the top part of the stomach pushes through the diaphragm. Many people have a hiatal hernia with no symptoms. The larger the hernia, the more likely it is that you will have symptoms. In some cases, a hiatal hernia allows stomach acid to flow back into the tube that carries food from your mouth to your stomach (esophagus). This may cause heartburn symptoms. The development of heartburn symptoms may mean that you have a condition called gastroesophageal reflux disease (GERD). What are the causes? This condition is caused by a weakness in the opening (hiatus) where the esophagus passes through the diaphragm to attach to the upper part of the stomach. A person may be born with a weakness in thehiatus, or a weakness can develop over time. What increases the risk? This condition is more likely to develop in: Older people. Age is a major risk factor for a hiatal hernia, especially if you are over the age of50. women. People who are overweight. People who have frequent constipation. What are the signs or symptoms? Symptoms of this condition usually develop in the form of GERD symptoms. Symptoms include: Heartburn. Upset stomach (indigestion). Trouble swallowing. Coughing or wheezing. Wheezing is making high-pitched whistling sounds when you breathe. Sore throat. Chest pain. Nausea and vomiting. How is this diagnosed? This condition may be diagnosed during testing for GERD. Tests that may be done include: X-rays of your stomach or chest. An upper gastrointestinal (GI) series. This is an X-ray exam of your GI tract that is taken after you swallow a chalky liquid that shows up clearly on the X-ray. Endoscopy. This is a procedure to look into your stomach using a thin, flexible tube that has a tiny camera and light on the end of it. How is this treated? This condition may be treated by: Dietary and lifestyle changes to help reduce GERD symptoms. Medicines. These may include: ?Unty-ycu-opcodrp antacids. ?Medicines that make your stomach empty more quickly. ?Medicines that block the production of stomach acid (H2 blockers). ?Stronger medicines to reduce stomach acid (proton pump inhibitors). Surgery to repair the hernia, if other treatments are not helping. If you have no symptoms, you may not need treatment. Follow these instructions at home: Lifestyle and activity Do not use any products that contain nicotine or tobacco. These products include cigarettes, chewing tobacco, and vaping devices, such as e-cigarettes. If you need help quitting, ask your health careprovider. Try to achieve and maintain a healthy body weight. Avoid putting pressure on your abdomen. Anything that puts pressure on your abdomen increases the amount of acid that may be pushed up into your esophagus. ?Avoid bending over, especially after eating. ?Raise the head of your bed by putting blocks under the legs. This keeps your head and esophagus higher than your stomach. ?Do not wear tight clothing around your chest or stomach. ?Try not to strain when having a bowel movement, when urinating, or when lifting heavy objects. Eating and drinking Avoid foods that can worsen GERD symptoms. These may include: ?Fatty foods, like fried foods. ?[place] fruits, like oranges or lemon. ?Other foods and drinks that contain acid, like orange juice or tomatoes. ?Spicy food. ?Chocolate. Eat frequent small meals instead of three large meals a day. This helps prevent your stomach from getting too full. ?Eat slowly. ?Do not lie down right after eating. ?Do not eat 1 2 hours before bed. Do not drink beverages with caffeine. These include cola, coffee, cocoa, and tea. Do not drink alcohol. General instructions Take nwkn-ghn-iryrefc and prescription medicines only as told by your health care provider. Keep all follow-up visits. Your health care provider will want to check that any new prescribed medicines are helping your symptoms. Contact a health care provider if: Your symptoms are not controlled with medicines or lifestyle changes. You are having trouble swallowing. You have coughing or wheezing that will not go away. Your pain is getting worse. Your pain spreads to your arms, neck, jaw, teeth, or back. You feel nauseous or you vomit. Get help right away if: You have shortness of breath. You vomit blood. You have bright red blood in your stools. You have black, tarry stools. These symptoms may be an emergency. Get help right away. Call 911. Do not wait to see if the symptoms will go away. Do not drive yourself to the hospital. Summary A hiatal hernia occurs when part of the stomach slides above the muscle that separates the abdomen from the chest. A person may be born with a weakness in the hiatus, or a weakness can develop over time. Symptoms of a hiatal hernia may include heartburn, trouble swallowing, or sore throat. Management of a hiatal hernia includes eating frequent small meals instead of three large meals a day. Get help right away if you vomit blood, have bright red blood in your stools, or have black, tarry stools. This information is not intended to replace advice given to you by your health care provider. Make sure you discuss any questions you have with your health care provider. Document Revised: 05/31/2022 Document Reviewed: 05/31/2022 [employer] Patient Education 2023 [employer] 01/11/2024 10:20:44 Endoscopy, Care After Procedure [facility] ([facility]) Endoscopy Care After Procedure Please read the instructions outlined below and refer to this sheet in the next few weeks. These discharge instructions provide you with general information on caring [facility] Your doctor may also give you specific instructions. While your treatment has been planned according to the most current medical practices available, unavoidable complications occasionally occur. If you have any problems or questions after discharge, please call your doctor. ACTIVITY You may resume your regular activity but move at a slower pace for the next 24 hours. Take frequent rest periods for the next 24 hours. Walking will help expel (get rid of) the air and reduce the bloated feeling in your abdomen. No driving for 24 hours (because of the anesthesia (medicine) used during the test). You may shower. Do not sign any important legal documents or operate any machinery for 24 hours (because of the anesthesia used during the test). NUTRITION Drink plenty of fluids. You may resume your normal diet. Begin with a light meal and progress to your normal diet. Avoid alcoholic beverages for 24 hours or as instructed by your caregiver. MEDICATIONS You may resume your normal medications unless your caregiver tells you otherwise. WHAT YOU CAN EXPECT TODAY You may experience abdominal discomfort such as a feeling of fullness or gas pains. FOLLOW-UP Your doctor will discuss the results of your test with you. SEEK IMMEDIATE MEDICAL ATTENTION IF ANY OF THE FOLLOWING OCCUR: Excessive nausea (feeling sick to your stomach) and/or vomiting. Severe abdominal pain and distention (swelling). Trouble swallowing. Temperature over 100 F (37.8 C). Rectal bleeding or vomiting of blood. Document Released: 11/15/2004 Document Re-Released: 09/25/2006 [employer] Patient Information [employer]. 01/11/2024 10:20:35 Colon Polyps Colon Polyps Colon polyps are tissue growths inside the colon, which is part of the large intestine. They are one of the types of polyps that can grow in the body. A polyp may be a round bump or a mushroom-shapedgrowth. You could have one polyp or more than one. Most colon polyps are noncancerous (benign). However, some colon polyps can become cancerous over time. Finding and removing the polyps early can help prevent this. What are the causes? The exact cause of colon polyps is not known. What increases the risk? The following factors may make you more likely to develop this condition: Having a family history of colorectal cancer or colon polyps. Being older than 45 years of age. Being younger than 45 years of age and having a significant family history of colorectal cancer or colon polyps or a genetic condition that puts you at higher risk of getting colon polyps. Having inflammatory bowel disease, such as ulcerative colitis or Crohn's disease. Having certain conditions passed from parent to child (hereditary conditions), such as: ?Familial adenomatous polyposis (FAP). ?Mendiola syndrome. ?Turcot syndrome. ?Peutz Jeghers syndrome. ?MUTYH-associated polyposis (MAP). Being overweight. Certain lifestyle factors. These include smoking cigarettes, drinking too much alcohol, not gettingenough exercise, and eating a diet that is high in fat and red meat and low in fiber. Having had childhood cancer that was treated with radiation of the abdomen. What are the signs or symptoms? Many times, there are no symptoms. If you have symptoms, they may include: Blood coming from the rectum during a bowel movement. Blood in the stool (feces). The blood may be bright red or very dark in color. Pain in the abdomen. A change in bowel habits, such as constipation or diarrhea. How is this diagnosed? This condition is diagnosed with a colonoscopy. This is a procedure in which a lighted, flexible scope is inserted into the opening between the buttocks (anus) and then passed into the colon to examine the area. Polyps are sometimes found when a colonoscopy is done as part of routine cancer screening tests. How is this treated? This condition is treated by removing any polyps that are found. Most polyps can be removed during a colonoscopy. Those polyps will then be tested for cancer. Additional treatment may be needed depending on the results of testing. Follow these instructions at home: Eating and drinking Eat foods that are high in fiber, such as fruits, vegetables, and whole grains. Eat foods that are high in calcium and vitamin D, such as milk, cheese, yogurt, eggs, liver, fish, and broccoli. Limit foods that are high in fat, such as fried foods and desserts. Limit the amount of red meat, precooked or cured meat, or other processed meat that you eat, such as hot dogs, sausages, rahman, or meat loaves. Limit sugary drinks. Lifestyle Maintain a healthy weight, or lose weight if recommended by your health care provider. Exercise every day or as told by your health care provider. Do not use any products that contain nicotine or tobacco, such as cigarettes, e- cigarettes, and chewing tobacco. If you need help quitting, ask your health care provider. Do not drink alcohol if: ?Your health care provider tells you not to drink. ?You are , may be , or are planning to become . If you drink alcohol: ?Limit how much you use to: ?0 1 drink a day for women. ?0 2 drinks a day for men. ?Know how much alcohol is in your drink. In the [place] one drink equals one 12 oz bottle of beer (355 mL), one 5 oz glass of wine (148 mL), or one 1 oz glass of hard liquor (44 mL). General instructions Take gstc-sem-rttuioz and prescription medicines only as told by your health care provider. Keep all follow-up visits. This is important. This includes having regularly scheduled colonoscopies. Talk to your health care provider about when you need a colonoscopy. Contact a health care provider if: You have new or worsening bleeding during a bowel movement. You have new or increased blood in your stool. You have a change in bowel habits. You lose weight for no known reason. Summary Colon polyps are tissue growths inside the colon, which is part of the large intestine. They are one type of polyp that can grow in the body. Most colon polyps are noncancerous (benign), but some can become cancerous over time. This condition is diagnosed with a colonoscopy. This condition is treated by removing any polyps that are found. Most polyps can be removed during a colonoscopy. This information is not intended to replace advice given to you by your health care provider. Make sure you discuss any questions you have with your health care provider. Document Revised: 07/22/2020 Document Reviewed: 07/22/2020 [employer] Patient Education 2023 [employer]. 01/11/2024 10:20:34 Colonoscopy, Care After Surgery [facility] ([facility]USTOM) Colonoscopy Care After Surgery Please read the instructions outlined below and refer to this sheet in the next few weeks. These discharge instructions provide you with general information on caring for yourself after you leave [facility]. Your doctor may also give you specific instructions. While your treatment has been planned according to the most current medical practices available, unavoidable complications occasionally occur. If you have any problems or questions after discharge, please call your doctor. ACTIVITY You may resume your regular activity, but move at a slower pace for the next 24 hours. Take frequent rest periods for the next 24 hours. Walking will help get rid of the air and reduce the bloated feeling in your abdomen (belly). No driving for 24 hours (because of the anesthesia (medicine) used during the test). You may shower. Do not sign any important legal documents or operate any machinery for 24 hours (because of the anesthesia used during the test). NUTRITION Drink plenty of fluids. You may resume your normal diet as instructed by your doctor. Begin with a light meal and progress to your normal diet. Heavy or fried foods are harder to digestand may make you feel nauseated (sick to your stomach). Avoid alcoholic beverages for 24 hours or as instructed. MEDICATIONS You may resume your normal medications unless your doctor tells you otherwise. WHAT YOU CAN EXPECT TODAY Some feelings of bloating in the abdomen. Passage of more gas than usual. Spotting of blood in your stool or on the toilet paper. FOLLOW-UP Your doctor will discuss the results of your test with you. SEEK IMMEDIATE MEDICAL ATTENTION IF: There is more than a spotting of blood in your stool. There is abdominal distention (your abdomen is swollen). There is vomiting. You have a temperature over 101.5 F. There is abdominal pain or discomfort that is severe or gets worse throughout the day. Follow Up Care 12/25/2023 10:22:05 With:Gladys FRANK, JIN Saez, [facility] Address: When: Unknown Comments:Call for any problems. Office will call to schedule follow up appointment [facility] 09-26-2024 NoteProgress Note-Physician Patient: VISHAL DUKE Age: 63 years Sex: Male : 1960 Associated Diagnoses: None Author: Ivan Orozco Jr., DO Postoperative Information Postoperative disposition: Postoperative disposition: Home. Optimetrix number: Optimetrix number [id number]. Anesthetic utilized: General. Physical Examination Vital Signs 01/11/2024 10:35 EDT Heart Rate Monitored 60 bpm Respiratory Rate Monitored 18 br/min Systolic Blood Pressure 114 mmHg Diastolic Blood Pressure 75 mmHg Mean Arterial Pressure, Cuff 88 mmHg SpO2 93 % 01/11/2024 10:25 EDT Heart Rate Monitored 70 bpm Respiratory Rate Monitored 20 br/min Systolic Blood Pressure 110 mmHg Diastolic Blood Pressure 64 mmHg Mean Arterial Pressure, Cuff 79 mmHg SpO2 94 % 01/11/2024 10:10 EDT Temperature Temporal Artery 36.5 DegC Heart Rate Monitored 70 bpm Respiratory Rate Monitored 19 br/min Systolic Blood Pressure 96 mmHg Diastolic Blood Pressure 59 mmHg Mean Arterial Pressure, Cuff 71 mmHg SpO2 95 % Pain Assessment: Controlled. General: Awake, Alert, Appropriate. Respiratory: Adequate air exchange, Non-labored. Cardiovascular: Stable, Normal peripheral perfusion. Neurological: Neurologic exam at baseline. No changes.. Assessment Anesthetic outcome No anesthetic complications noted. No nausea/vomiting. Review / Management Condition: Stable. Plan Transfer/Discharge: Transfer/Discharge Discharge when meets criteria ( From PACU to Ambulatory Surgery Unit, and To home ).[facility]:Result Comment: Electronically Signed By: Ivan Orozco Jr., DO\Date and Time Signed: 01/11/24 11:27 [id number] NoteEndoscopic Procedure Report - Other Patient: VISHAL DUKE Age: 63 years Sex: Male : 1960 Associated Diagnoses: None Author: Xochilt Graham MD Pre-Procedure Procedure Date 01/11/2024 10:26:00 . Procedure Type: Colonoscopy with removal of tumor(s), polyp(s), or other lesion(s) by cold snare technique. Procedure provider Performed by Xochilt Graham MD. Current history and physical Reviewed. Kidney transplant ([id number]) on 01/01/2018 at 57 Years. Comments: 01/01/2020 12:00 Ronald Molina MAjean Seo Pt has three kidneys Placement of stent in cardiac conduit ([id number]). Triple coronary bypass ([id number]). Bilateral vasectomy ([id number]). Colonoscopy ([id number]).. Past Medical History No active or resolved past medical history items have been selected or recorded.. Family History Alzheimer's disease Mother . Procedure History Kidney transplant ([id number]) on 01/01/2018 at 57 Years. Comments: 01/01/2020 12:00 WES Anderson MA Leia Seo Pt has three kidneys Placement of stent in cardiac conduit ([id number]). Triple coronary bypass ([id number]). Bilateral vasectomy ([id number]). Colonoscopy ([id number]).. Colorectal neoplasm risk assessment High risk Previous history of polyps. . Informed Consent After discussing the rationale, risks and benefits, and alternatives to this procedure, the patient provided signed consent for the procedure. Pre-procedure diagnosis: History of colon polyps. Medications (Selected) Inpatient Medications Ordered Lactated Ringers IV Mamta 1000 mL 1,000 mL: 1,000 mL, IV, 100 mL/hr, Routine, Start date 01/11/24 8:40:00 EDT, 10 hour(s), Total volume (mL): 1,000, 94.3 kg, 2.16, m2 Sodium Chloride 0.9% IV Mamta 1000 mL 1,000 mL: 1,000 mL, IV, 20 mL/hr, Routine, Start date 01/11/24 6:45:00 EDT, 50 hour(s), Total volume (mL): 1,000, 94.3 kg, 2.16, m2 Prescriptions Prescribed famotidine 40 mg Tab: 40 mg = 1 tab(s), Oral, Once a day (at bedtime), # 90 tab(s), Refills(s) 0, Pharmacy: [id number], 177.8, cm, 12/25/23 9:23:00 EDT, Height/Length Dosing, 94.3, kg, 12/25/23 9:23:00 EDT, Weight Dosing Documented Medications Documented Metoprolol tartrate 50 mg Tab: mg tab(s), Oral, BID, Refills(s) 0, High blood pressure Nexium 40 mg Cap-EC: 40 mg = 1 cap(s), Oral, Daily, Refills(s) 0, Control of stomach acid aspirin 81 mg oral tablet: mg tab(s), Oral, Daily, Refills(s) 0 atorvastatin 80 mg Tab: 80 mg = 1 tab(s), Oral, Daily, High cholesterol clopidogrel 75 mg Tab: 75 mg = 1 tab(s), Oral, Daily, Blood Thinner clotrimazole 10 mg Jennifer: mg lozenge(s), Oral, 5x/Day, Refills(s) 0, Infection or prophylaxis for antibiotics isosorbide mononitrate 60 mg ER Tab: 60 mg = 1 tab(s), Oral, qAM, Refills(s) 0, High blood pressure lisinopril 5 mg Tab: mg tab(s), Oral, Daily, Refills(s) 0, High blood pressure magnesium oxide 400 mg Tab: 400 mg = 1 tab(s), Oral, TID, Prophylaxis mycophenolic acid 180 mg oral enteric coated tablet: mg tab(s), Oral, BID, Refills(s) 0 ranolazine 500 mg oral ER Tab: 500 mg = 1 tab(s), Oral, BID, Infection or prophylaxis for antibiotics tacrolimus: 1 mg, Refills(s) 0, Other (see comment) ASA Classification: Class III. . Monitoring: See anesthesia record. . Procedure The procedure was performed in the hospital. See anesthesia record for sedation given during procedure. The patient was positioned starting in the left lateral decubitus position. Endoscope type usedwas an adult-size. The endoscope was lubricated then introduced through the anus. The scope was advanced to the terminal ileum. No difficulties encountered during the procedure. The bowel preparationquality was adequate (see polyps greater than or equal to 6 millimeters). The patient tolerated theprocedure well. Time to Cecum: 8 min Withdrawal time 14 min Last colonoscopy: 10 years ago Findings 1. Normal rectal exam 2. 2 sessile polyps in the descending colon and rectum, 5 mm in size, resected with cold snare completely and retrieved 1 clip was placed at each polypectomy site to prevent bleeding the end of the procedure. 3. Normal examined terminal ileum Images Procedure images: [id number]_hd_video__[id number] Rec_hd_video__[id number].jpg [id number]_hd_video__[id number].jpg [id number]_hd_video__[id number].jpg Rec_hd_video__[id number].jpg Rec_hd_video__[id number].jpg Rec_hd_video__[id number].jpg [id number]_hd_video_[id number]__[id number].jpg [id number]_hd_video__[id number].jpg (Inserted Image. Unable to dis (more content not included)...[facility] CenterComment on above:Result Comment: Electronically Signed By: Gladys FRANK, Xochilt Butler\.br\Date and Time Signed: 01/11/24 10:28 EDTOther Comment: Missing Attachment - attachment storage system not supported [id number] Can be viewed in source systemMissing Attachment - attachment storage system not supported [id number] Can be viewed [facility]ce systemMissing Attachment - attachment storage system not supported [id number] Can be viewed in source systemMissing Attachment - attachment storage system not supported [id number] Can be viewed in so ce systemMissing Attachment - attachment storage system not supported [id number] Can be viewed in source systemMissing Attachment - attachment storage system not supported [id number] Can be viewed in source systemMissing Attachment - attachment storage system not supported [id number] Can be viewed in source systemMissing Attachment - attachment storage system not supported [id number] Can be viewed in source systemMissing Attachment - attachment storage system not supported [id number] Can be viewed in sourcesystemMissing Attachment - attachment storage system not supported [id number] Can be viewed in source systemMissing Attachment - attachment storage system not supported [id number] Can be viewed in source sy stemOksslawrence f. [facility] Attachment - attachment storage system not supported [id number] Can be viewed in source systemMissing Attachment - attachment storage system not supported [id number] Can be viewed in source [id number] NotePatient Education - Text Endoscopy Care After Procedure Please read the instructions outlined below and refer to this sheet in the next few weeks. These discharge instructions provide you with general information on caring for yourself after you leave [facility]ital. Your doctor may also give you specific instructions. While your treatment has been planned according to the most current medical practices available, unavoidable complications occasionally occur. If you have any problems or questions after discharge, please call your doctor. ACTIVITY ? You may resume your regular activity but move at a slower pace for the next 24 hours. ? Take frequent rest periods for the next 24 hours. ? Walking will help expel (get rid of) the air and reduce the bloated feeling in your abdomen. ? No driving for 24 hours (because of the anesthesia (medicine) used during the test). ? You may shower. ? Do not sign any important legal documents or operate any machinery for 24 hours (because of the anesthesia used during the test). NUTRITION ? Drink plenty of fluids. ? You may resume your normal diet. ? Begin with a light meal and progress to your normal diet. ? Avoid alcoholic beverages for 24 hours or as instructed by your caregiver. MEDICATIONS ? You may resume your normal medications unless your caregiver tells you otherwise. WHAT YOU CAN EXPECT TODAY ? You may experience abdominal discomfort such as a feeling of fullness or ?gas? pains. FOLLOW-UP ? Your doctor will discuss the results of your test with you. seek immediate medical attention if any of the following occur: ? Excessive nausea (feeling sick to your stomach) and/or vomiting. ? Severe abdominal pain and distention (swelling). ? Trouble swallowing. ? Temperature over 100 F (37.8? C). ? Rectal bleeding or vomiting of blood. Document Released: 11/15/2004 Document Re-Released: 09/25/2006 [employer]? Patient Information ?2009 [employer]. Colonoscopy Care After Surgery Please read the instructions outlined below and refer to this sheet in the next few weeks. These discharge instructions provide you with general information on caring for [facility] Your doctor may also give you specific instructions. While your treatment has been planned according to the most current medical practices available, unavoidable complications occasionally occur. If you have any problems or questions after discharge, please call your doctor. ACTIVITY You may resume your regular activity, but move at a slower pace for the next 24 hours. Take frequent rest periods for the next 24 hours. Walking will help get rid of the air and reduce the bloated feeling in your abdomen (belly). No driving for 24 hours (because of the anesthesia (medicine) used during the test). You may shower. Do not sign any important legal documents or operate any machinery for 24 hours (because of the anesthesia used during the test). NUTRITION Drink plenty of fluids. You may resume your normal diet as instructed by your doctor. Begin with a light meal and progress to your normal diet. Heavy or fried foods are harder to digestand may make you feel nauseated (sick to your stomach). Avoid alcoholic beverages for 24 hours or as instructed. MEDICATIONS You may resume your normal medications unless your doctor tells you otherwise. WHAT YOU CAN EXPECT TODAY Some feelings of bloating in the abdomen. Passage of more gas than usual. Spotting of blood in your stool or on the toilet paper. FOLLOW-UP Your doctor will discuss the results of your test with you. SEEK IMMEDIATE MEDICAL ATTENTION IF: There is more than a spotting of blood in your stool. There is abdominal distention (your abdomen is swollen). There is vomiting. You have a temperature over 101.5 F. There is abdominal pain or discomfort that is severe or gets worse throughout the day. Gastroenterology Hiatal Hernia A hiatal hernia occurs when part of the stomach slides above the muscle that separates the abdomen from the chest (diaphragm). A person can be born with a hiatal hernia (congenital), or it may develop over time. In almost all cases of hiatal hernia, only the top part of the stomach pushes through the diaphragm. Many people have a hiatal hernia with no symptoms. The larger the hernia, the more likely it is that you will have symptoms. In some cases, a hiatal hernia allows stomach acid to flow back into the tube that carries food from your mouth to your stomach (esophagus). This may cause heartburn symptoms. The development of heartburn symptoms may mean that you have a condition called gastroesophageal reflux disease (GERD). What are the causes? This condition is caused by a weakness in the opening (hiatus) where the esophagus passes through the diaphragm to attach to the upper part of the stomach. A person may be born with a weakness in thehiatus, or a weakness can develop ove (more content not included)...[facility]09-26-2024 NoteEndoscopic Procedure Report - Other Patient: VISHAL DUKE Age: 63 years Sex: Male : 1960 Associated Diagnoses: None Author: Xochilt Graham MD Pre-Procedure Procedure Date 01/11/2024 09:36:00 . Procedure Type: Esophagogastroduodenoscopy with biopsy. Procedure provider Performed by Xochilt Graham MD. Current history and physical Documented on chart. Informed Consent After discussing the rationale, risks and benefits, and alternatives to this procedure, the patient provided signed consent for the procedure. Pre-procedure diagnosis: GERD. Medications Anticoagulant/antiplatelet Plavix 5 days ago. ASA Classification: Class III. . Monitoring: See anesthesia record. . Procedure The procedure was performed in the hospital. See anesthesia record for sedation given during procedure. The patient was positioned starting in the left lateral decubitus position and with safety measures. Endoscope type used was an adult- size, introduced orally, advanced to the 3rd portion of the duodenum. No difficulty was encountered during the procedure. Views were excellent. The patient tolerated the procedure well. Findings 1. Esophageal landmarks identified, very small hiatal hernia, otherwise normal examined esophagus 2. Flat lesion, about 1 cm in size, in the antrum of the stomach suggestive of intestinal metaplasia, biopsied. Otherwise normal examined stomach 3. 5 mm sessile polyp in the duodenal bulb, removed with cold biopsy forceps completely and retrieved. Otherwise normal examined duodenum Images Procedure images: [id number]_hd_video__[id number].jpg Rec1_hd_video__[id number].jpg Rec1_hd_video__[id number].jpg Rec1_hd_video__[id number].jpg Rec1_hd_video__[id number].jpg Rec1_hd_video__[id number].jpg Rec1_hd_video__[id number].jpg Rec1_hd_video__[id number].jpg Rec1_hd_video_2023__[id number].jpg Rec1_hd_video_2023__[id number].jpg Rec1_hd_video_2023__[id number].jpg . Post-Procedure Complications: none. Estimated blood loss: minimal. Specimens: sent to pathology. Devices/ implants: none left in place. Impression and Plan 1. Esophageal landmarks identified, very small hiatal hernia, otherwise normal examined esophagus 2. Flat lesion, about 1 cm in size, in the antrum of the stomach suggestive of intestinal metaplasia, biopsied. Otherwise normal examined stomach 3. 5 mm sessile polyp in the duodenal bulb, removed with cold biopsy forceps completely and retrieved. Otherwise normal examined duodenum Recommendations: -Resume previous diet -Resume home medications -Await pathology results, follow in GI clinic in 1-[address] [facility] CenterComment on above:Result Comment: Electronically Signed By: Gladys FRANK, Xochilt Butler\.br\Date and Time Signed: 01/11/24 09:38 EDTOther Comment: Missing Attachment - attachment storage system not supported [id number] Can be viewed in source system Missing Attachment - attachment storage system not supported [id number] Can be viewed in source systemMissing Attachment - attachment storage system not supported [id number] Can be viewed in source systemMissing Attachment - attachment storage system not supported [id number] Can be viewed in source systemMissing Attachment - attachment storage system not supported [id number] Can be viewed in source systemMissing Attachment - attachment storage system not supported [id number] Can be viewed in source systemMissing Attachment - attachment storage system not supported [id number] Can be viewed in source systemMissing Attachment - attachment storage system not supported [id number] Can be viewed in source system Missing Attachment - attachment storage system not supported [id number] Can be viewed in source systemMissing Attachment - attachment storage system not supported [id number] Can be viewed in source systemMissing Attachment - attachment storage system not supported [id number] Can be viewed in source [id number] NoteHistory and Physical Patient: VISHAL DUKE Age: 63 years Sex: Male : 1960 Associated Diagnoses: None Author: Xochilt Graham MD Preoperative Information Indication for procedure and diagnosis: Screening for colon cancer, history of hyperplastic polyps,GERD Chief Complaint as above Review of Systems All systems reviewed, negative except as mentioned above Health Status Current medications: (Selected) Inpatient Medications Ordered Lactated Ringers IV Mamta 1000 mL 1,000 mL: 1,000 mL, IV, 100 mL/hr, Routine, Start date 01/11/24 8:40:00 EDT, 10 hour(s), Total volume (mL): 1,000, 94.3 kg, 2.16, m2 Sodium Chloride 0.9% IV Mamta 1000 mL 1,000 mL: 1,000 mL, IV, 20 mL/hr, Routine, Start date 01/11/24 6:45:00 EDT, 50 hour(s), Total volume (mL): 1,000, 94.3 kg, 2.16, m2 Prescriptions Prescribed famotidine 40 mg Tab: 40 mg = 1 tab(s), Oral, Once a day (at bedtime), # 90 tab(s), Refills(s) 0, Pharmacy: [id number], 177.8, cm, 12/25/23 9:23:00 EDT, Height/Length Dosing, 94.3, kg, 12/25/23 9:23:00 EDT, Weight Dosing Documented Medications Documented Metoprolol tartrate 50 mg Tab: mg tab(s), Oral, BID, Refills(s) 0, High blood pressure Nexium 40 mg Cap-EC: 40 mg = 1 cap(s), Oral, Daily, Refills(s) 0, Control of stomach acid aspirin 81 mg oral tablet: mg tab(s), Oral, Daily, Refills(s) 0 atorvastatin 80 mg Tab: 80 mg = 1 tab(s), Oral, Daily, High cholesterol clopidogrel 75 mg Tab: 75 mg = 1 tab(s), Oral, Daily, Blood Thinner clotrimazole 10 mg Jennifer: mg lozenge(s), Oral, 5x/Day, Refills(s) 0, Infection or prophylaxis for antibiotics isosorbide mononitrate 60 mg ER Tab: 60 mg = 1 tab(s), Oral, qAM, Refills(s) 0, High blood pressure lisinopril 5 mg Tab: mg tab(s), Oral, Daily, Refills(s) 0, High blood pressure magnesium oxide 400 mg Tab: 400 mg = 1 tab(s), Oral, TID, Prophylaxis mycophenolic acid 180 mg oral enteric coated tablet: mg tab(s), Oral, BID, Refills(s) 0 ranolazine 500 mg oral ER Tab: 500 mg = 1 tab(s), Oral, BID, Infection or prophylaxis for antibiotics tacrolimus: 1 mg, Refills(s) 0, Other (see comment), Home Medications (13) Active aspirin 81 mg oral tablet , Oral, Daily atorvastatin 80 mg Tab 80 mg = 1 tab(s), Oral, Daily clopidogrel 75 mg Tab 75 mg = 1 tab(s), Oral, Daily clotrimazole 10 mg Jennifer , Oral, 5x/Day famotidine 40 mg Tab 40 mg = 1 tab(s), Oral, Once a day (at bedtime) isosorbide mononitrate 60 mg ER Tab 60 mg = 1 tab(s), Oral, qAM lisinopril 5 mg Tab , Oral, Daily magnesium oxide 400 mg Tab 400 mg = 1 tab(s), Oral, TID Metoprolol tartrate 50 mg Tab , Oral, BID mycophenolic acid 180 mg oral enteric coated tablet , Oral, BID Nexium 40 mg Cap-EC 40 mg = 1 cap(s), Oral, Daily ranolazine 500 mg oral ER Tab 500 mg = 1 tab(s), Oral, BID tacrolimus 1 mg Problem list: All Problems BPH with urinary obstruction / SNOMED CT 5474351162 / Confirmed Hypertension / SNOMED CT 1773866823 / Confirmed Renal failure / SNOMED CT 55908163 / Confirmed polycystic kidney disease / SNOMED CT 675814236 / Confirmed Hyperlipidemia / SNOMED CT 67055175 / Confirmed Microhematuria / SNOMED CT 607714160 / Confirmed Nocturia / SNOMED CT 916696767 / Confirmed Kidney transplanted / SNOMED CT 1561463933 / Confirmed Myocardial infarct / SNOMED CT 46491861 / Confirmed Screen for colon cancer / SNOMED CT 546280280 / Confirmed History of colon polyps / SNOMED CT 6448859103 / Confirmed Histories Past Medical History: No active or resolved past medical history items have been selected or recorded. Family History: Mother Alzheimer's disease Procedure history: Kidney transplant ([id number]) on 01/01/2018 at 57 Years. Comments: 01/01/2020 12:00 EDT - Justin LONG, Leia Seo Pt has three kidneys Placement of stent in cardiac conduit ([id number]). Triple coronary bypass (470061185). Bilateral vasectomy (110754606). Colonoscopy (116224182). Social History Social & Psychosocial Habits Alcohol 12/25/2023 Risk Assessment: Low Risk Substance Abuse 12/25/2023 Risk Assessment: Denies Substance Abuse Tobacco 12/25/2023 Risk Assessment: Denies Tobacco Use 12/25/2023 Tobacco Use: Former smoker, quit more Smokeless tobacco use: Never Type: Cigarettes . Physical Examination Vital Signs (last 24 hrs) Last Charted Temp Temporal 36.4 DegC (JAN 10 08:46) Heart Rate Monitored 60 bpm (JAN 10 08:46) SBP H 146 mmHg (JAN 10 08:46) DBP 75 mmHg (JAN 10 08:46) Weight 94.3 kg (JAN 10 08:46) BMI 29.83 (JAN 10 08:46) General: in Nad Abdomen: Soft, NTND Impression and Plan Impression: Screening for colon cancer, history of hyperplastic polyps, GERD Plan: -EGD and ColonoscopyUniversity Hospitals St. [facility] CenterComment on above:Result Comment: Electronically Signed By: Gladys FRANK, Xochilt Butler\.br\Date and Time Signed: 01/11/24 09:25 [id number] NoteProgress Note-Physician Patient: VISHAL DUKE Age: 63 years Sex: Male : 1960 Associated Diagnoses: None Author: [place] Orozco Jr., DO Preoperative Information Anesthesia history: Patient history: No prior anesthetic problems. Informed consent: Signed by patient. Re-evaluation prior to induction: Initial evaluation reviewed: No significant change. Review of Systems Respiratory: Negative except as documented in history of present illness. Cardiovascular: Negative except as documented in history of present illness. Health Status Allergies: Allergic Reactions (Selected) No Known Allergies, Allergies (1) Active Severity Reaction No Known Allergies None Documented Current medications: (Selected) Inpatient Medications Ordered Lactated Ringers IV Mamta 1000 mL 1,000 mL: 1,000 mL, IV, 100 mL/hr, Routine, Start date 01/11/24 8:40:00 EDT, 10 hour(s), Total volume (mL): 1,000, 94.3 kg, 2.16, m2 Sodium Chloride 0.9% IV Mamta 1000 mL 1,000 mL: 1,000 mL, IV, 20 mL/hr, Routine, Start date 01/11/24 6:45:00 EDT, 50 hour(s), Total volume (mL): 1,000, 94.3 kg, 2.16, m2 Prescriptions Prescribed famotidine 40 mg Tab: 40 mg = 1 tab(s), Oral, Once a day (at bedtime), # 90 tab(s), Refills(s) 0, Pharmacy: [id number], 177.8, cm, 12/25/23 9:23:00 EDT, Height/Length Dosing, 94.3, kg, 12/25/23 9:23:00 EDT, Weight Dosing Documented Medications Documented Bactrim: Oral, q12hr, Refill(s) 0, Infection or prophylaxis for antibiotics Effient 10 mg Tab: 10 mg = 1 tab(s), Oral, Daily, # 30 tab(s), Refills(s) 0, Blood Thinner Farxiga 10 mg oral tablet: 10 mg = 1 tab(s), Oral, Daily, Blood glucose Metoprolol tartrate 50 mg Tab: mg tab(s), Oral, BID, Refills(s) 0, High blood pressure aspirin 81 mg oral tablet: mg tab(s), Oral, Daily, Refills(s) 0 atorvastatin 80 mg Tab: 80 mg = 1 tab(s), Oral, Daily, High cholesterol clopidogrel 75 mg Tab: 75 mg = 1 tab(s), Oral, Daily, Blood Thinner clotrimazole 10 mg Jennifer: mg lozenge(s), Oral, 5x/Day, Refills(s) 0, Infection or prophylaxis for antibiotics lisinopril 5 mg Tab: mg tab(s), Oral, Daily, Refills(s) 0, High blood pressure magnesium amino acids chelate: Oral, Refills(s) 0, Other (see comment) magnesium oxide 400 mg Tab: 400 mg = 1 tab(s), Oral, TID, Prophylaxis mycophenolic acid 180 mg oral enteric coated tablet: mg tab(s), Oral, BID, Refills(s) 0 predniSONE 5 mg Tab: 5 mg = 1 tab(s), Oral, Daily, Inflammation ranolazine 500 mg oral ER Tab: 500 mg = 1 tab(s), Oral, BID, Infection or prophylaxis for antibiotics sodium bicarbonate 325 mg Tab: = 1 tab(s), Oral, QID, PRN for indigestion, # 30 tab(s), Refills(s) 0 sucralfate 1 g Tab: 1 gm = 1 tab(s), Oral, TID, Control of stomach acid tacrolimus: 1 mg, Refills(s) 0, Other (see comment) valganciclovir 450 mg oral tablet: mg tab(s), Oral, Daily, Refills(s) 0, Other (see comment), Home Medications (19) Active aspirin 81 mg oral tablet , Oral, Daily atorvastatin 80 mg Tab 80 mg = 1 tab(s), Oral, Daily Bactrim , Oral, q12hr clopidogrel 75 mg Tab 75 mg = 1 tab(s), Oral, Daily clotrimazole 10 mg Jennifer , Oral, 5x/Day Effient 10 mg Tab 10 mg = 1 tab(s), Oral, Daily famotidine 40 mg Tab 40 mg = 1 tab(s), Oral, Once a day (at bedtime) Farxiga 10 mg oral tablet 10 mg = 1 tab(s), Oral, Daily lisinopril 5 mg Tab , Oral, Daily magnesium amino acids chelate , Oral magnesium oxide 400 mg Tab 400 mg = 1 tab(s), Oral, TID Metoprolol tartrate 50 mg Tab , Oral, BID mycophenolic acid 180 mg oral enteric coated tablet , Oral, BID predniSONE 5 mg Tab 5 mg = 1 tab(s), Oral, Daily ranolazine 500 mg oral ER Tab 500 mg = 1 tab(s), Oral, BID sodium bicarbonate 325 mg Tab 1 tab(s), PRN, Oral, QID sucralfate 1 g Tab 1 gm = 1 tab(s), Oral, TID tacrolimus 1 mg valganciclovir 450 mg oral tablet , Oral, Daily , Medications (2) Active Scheduled: (0) Continuous: (2) Lactated Ringers 1,000 mL 1,000 mL, IV, 100 mL/hr Sodium Chloride 0.9% 1,000 mL 1,000 mL, IV, 20 mL/hr PRN: (0) Problem list: All Problems BPH with urinary obstruction / SNOMED CT 0615138775 / Confirmed History of colon polyps / SNOMED CT 3908505297 / Confirmed Hyperlipidemia / SNOMED CT 18950062 / Confirmed Hypertension / SNOMED CT 5420413963 / Confirmed Kidney transplanted / SNOMED CT 8940670224 / Confirmed Microhematuria / SNOMED CT 366557601 / Confirmed Myocardial infarct / SNOMED CT 62220817 / Confirmed Nocturia / SNOMED CT 536019991 / Confirmed polycystic kidney disease / SNOMED CT 946195454 / Confirmed Renal failure / SNOMED CT 77263886 / Confirmed Screen for colon cancer / SNOMED CT 253039978 / Confirmed Histories Past Medical History: No active or resolved past medical history items have been selected or recorded. Procedure history: Kidney transplant ([id number]) on 01/01/2018 at 57 Years. Comments: 01/01/2020 12:00 REINAT - Leia Anderson MA Pt has three kidneys Placement of (more content not included)...[facility] CenterComment on above:Result Comment: Electronically Signed By: [place] Orozco Jr., DO\.adam\Date and Time Signed: 01/11/24 08:41 [id number] Chief Complaint: Patient [...] bruits present. CARDIAC: S1, (more content not included)...[facility] Chief Complaint: Patient [...] BMI 28.70 kg/m??? [facility] (more content not included)...[facility] 05-18-2023 Note05/18/23 I called the pt and explained that [...] Pt verbalized understanding of the dose change. [facility]02-01-2024 Note05/18/23 DD Renal transplant on (08/15/2017) by Dr. Marquez. CMV +/-. History of PKD. Patient has recent history of an NH and had Pacer/Defib Placed. Vishal Duke is [...] Review Audit Reviewed by Cierra Danielson MA (Milieu Coordinator) on 05/18/23 at 1014 Medication Order Taking? Sig Documenting Provider Last Dose Status albuterol (ProAir HFA) 90 mcg/actuation inhaler [id number] Yes Inhale 2 puffs every 4 (four) hours if needed for wheezing or shortness of breath. Laney Busch MD Taking Active aspirin 81 mg EC tablet [id number] Yes Take 81 mg by mouth in the morning. Makayla Gates MD Taking Active atorvastatin (Lipitor) 80 mg tablet [id number] Yes Take 1 tablet (80 mg) by mouth at bedtime. Federico Chester MD Taking Active clopidogrel (Plavix) 75 mg tablet [id number] Yes Take 1 tablet (75 mg) by mouth in the morning. Federico Chester MD Taking Active empagliflozin (Jardiance) 10 mg [id number] Yes Take 1 tablet (10 mg) by mouth once daily as directed. Federico Chester MD Taking Active esomeprazole (NexIUM) [address] capsule [id number] Yes Take 1 capsule (40 mg) by mouth before breakfast. Do not open capsule. Federico Chester MD Taking Active famotidine (Pepcid) 20 mg tablet [id number] No Take 20 mg by mouth in the morning and at bedtime. Makayla Gates MD Not Taking Flag for Review isosorbide mononitrate ER (Imdur) 60 mg 24 hr tablet [id number] Yes Take 1 tablet (60 mg) by mouth in the morning. Do not crush or chew. Federico Chester MD Taking Active lisinopril 5 mg tablet [id number] Yes Take 1 tablet (5 mg) by mouth in the morning. Federico Chester MD Taking Active magnesium oxide (Mag-Ox) 400 mg tablet [id number] Yes 400 mg in the morning. Take 3 tablets Makayla Gates MD Taking Differently Active methocarbamol (Robaxin) 500 mg tablet [id number] Take 1 tablet (500 mg) by mouth if needed in the morning, at noon, and at bedtime for muscle spasms for up to 5 days. Patient not taking: Reported on 02/09/2023 Lani Olson MD 01/30/23 2609 metoprolol succinate XL (Toprol-XL) 200 mg 24 hr tablet Yes Take 1 tablet (200 mg) by mouth once daily as directed. Do not crush or chew. Federico Chester MD Taking Active mycophenolate (Myfortic) 180 mg EC tablet [id number] Yes Take 3 tablets (540 mg) by mouth in the morning and at bedtime. Petey Redding NP Taking Active nitroglycerin (Nitrostat) 0.4 mg SL tablet [id number] Yes Place 0.4 mg under the tongue every 5 (five) minutes if needed for chest pain. Historical Provider, Taking Active predniSONE (Deltasone) 5 mg tablet [id number] Yes Take 5 mg by mouth in the morning. Historical Provider, Taking Differently Active ranolazine (Ranexa) 500 mg 12 hr tablet [id number] Yes Take 1 tablet (500 mg) by mouth in the morning and at bedtime. Do not crush, chew, or split. Federico Chester MD Taking Active tacrolimus (Prograf) 0.5 mg capsule [id number] Yes Take 1 capsule (0.5 mg) by mouth in the morning. TDD 1.5mg Patient taking differently: Take 0.5 mg by mouth once daily in the evening. TDD (more content not included)...[facility]12-13-2023 Note Patient's tac level of 9.[address] Basurto and he just wants to watch it no medication change. Maria G Mayberry, RNUnUniversity Hospitals [facility]12-12-2023 Note 03/28/23 Chief Complaint Patient presents with Kidney Follow-up Patient have no concerns PCP: Rosa M Gonzales MD Txp Referring: Preferred Pharmacy: [id number] - [place], [place] - [address] [place] [address] Subjective Visit Vitals BP 111/61 Pulse 60 Wt 90.3 kg (199 lb) BMI 27.75 kg/m??? Smoking Status Former BSA 2.13 m??? No Known Allergies Medication Documentation Review Audit Reviewed by Tim Foy MA (Milieu Coordinator) on 12/12/23 at 0912 Medication Order Taking? Sig Documenting Provider Last Dose Status albuterol (ProAir HFA) 90 mcg/actuation inhaler [id number] Yes Inhale 2 puffs every 4 (four) hours if needed for wheezing or shortness of breath. Laney Busch MD Taking Active aspirin 81 mg EC tablet [id number] Yes Take 81 mg by mouth in the morning. Historical Provider, Taking Active atorvastatin (Lipitor) 80 mg tablet [id number] Yes Take 1 tablet (80 mg) by mouth at bedtime. Federico Chester MD Taking Active clopidogrel (Plavix) 75 mg tablet [id number] Yes Take 1 tablet (75 mg) by mouth in the morning. Federico Chester MD Taking Active empagliflozin (Jardiance) 10 mg [id number] Yes Take 1 tablet (10 mg) by mouth once daily as directed. Federico Chester MD Taking Active esomeprazole (NexIUM) [address] capsule [id number] Yes Take 1 capsule (40 mg) by mouth before breakfast. Do not open capsule. Federico Chester MD Taking Active famotidine (Pepcid) 20 mg tablet [id number] Yes Take 20 mg by mouth in the morning and at bedtime. Historical Provider, Taking Active isosorbide mononitrate ER (Imdur) 60 mg 24 hr tablet [id number] Yes Take 1 tablet (60 mg) by mouth in the morning. Do not crush or chew. Federico Chester MD Taking Active lisinopril 5 mg tablet [id number] Yes Take 1 tablet (5 mg) by mouth in the morning. Federico Chester MD Taking Active magnesium oxide (Mag-Ox) 400 mg tablet [id number] Yes 400 mg in the morning. Historical ProviderMD Taking Active methocarbamol (Robaxin) 500 mg tablet [id number] Take 1 tablet (500 mg) by mouth if needed in the morning, at noon, and at bedtime for muscle spasms for up to 5 days. Patient not taking: Reported on 02/09/2023 Lani Olson MD 01/30/23 0938 metoprolol succinate XL (Toprol-XL) 200 mg 24 hr tablet Yes Take 1 tablet (200 mg) by mouth once daily as directed. Do not crush or chew. Federico Chester MD Taking Active mycophenolate (Myfortic) 180 mg EC tablet [id number] Yes Take 3 tablets (540 mg) by mouth in the morning and at bedtime. Bobby Maldonado MD Taking Active nitroglycerin (Nitrostat) 0.4 mg SL tablet [id number] Yes Place 0.4 mg under the tongue every 5 (five) minutes if needed for chest pain. Historical Provider, Taking Active predniSONE (Deltasone) 5 mg tablet [id number] Yes Take 5 mg by mouth every other day. Historical Provider, Taking Active ranolazine (Ranexa) 500 mg 12 hr tablet [id number] Yes Take 1 tablet (500 mg) by mouth in the morning and at bedtime. Do not crush, chew, or split. Federico Chester MD Taking Active tacrolimus (Prograf) 0.5 mg capsule [id number] Yes tacrolimus 0.5 mg capsule, immediate-release TAKE 1 CAPSULE BY MOUTH TWICE DAILY Phoebe Culver MD Taking Active Immunization History Administered Date(s) Administered Unspecified Sars-Cov-2 Vaccination 12/30/2021 Patient Active Problem List Diagnosis Aftercare following organ transplant Kidney replaced by transplant Electrolyte abnormality Immunosuppression ([facility]) Polycystic kidney disease, autosomal dominant Elevated hemoglobin ([facility]) Other abnormality of red blood cells Post-COVID chronic dyspnea Chronic systolic congestive heart failure ([facility]) Active rickets Acute bronchitis Acute non-ST elevation myocardial infarction (NSTEMI) (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 artery disease 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 ([facility]) Gastroesophageal reflux disease Hypertension End-stage renal disease ([facility]) Coronary atherosclerosis Hyperkalemia History of kidney disease Gouty arthropathy Hypervitaminosis A Increased infection risk status post immunosuppressive therapy Lower urinary tract symptoms due to benign prostatic hyperplasia Male hypogonadism Hyperlipidemia Microscopic hematuria Mixed hyperlipidemia Myocardial infarction ([facility]) Neuropathy Nocturia Renal failure Pyelonephritis Pseudophakia PCO (posterior capsular opacification), right Stage 4 chronic kidney disease (CMS/HCC) Stage 3 chronic kidney disease ([facility] [facility]) Upper respiratory infection Status post insertion of drug-eluting stent into left anterior descending (LAD) artery for coronary artery disease Ventricular tachycardia ([facility] (more content not included)...[facility]11-22-2023 NoteNew standing lab order placed in intraoffice mail today to go out>[facility]11-22-2023 NoteNew standing lab order placed in today's outgoing mail. Following call from clinic [facility] Amisha that pt is @ [facility] for lab draws, faxed to [phone] new order and requested [place] fax all lab results to [place] transplant as last monthly lab results were received November 2022. Pt notified order sent & mailed and to contact [place] transplant monthly when labs are completed to confirm receipt or have testing @ [facility]. He acknowledged. Encouraged to FU next week with [place] transplant.[facility]11-15-2023 NotePatient called stating his repeat tac level still 3.6 in his My Chart, we do not have results yet.. Patient will increase by 0.5 mg in the morning, now on 1 mg in am and 0.5 mg in afternoon of prograf. He will repeat level in one week. [facility]11-07-[address] borrero office, incisional culture came back positive pseudomonis, suseptable to Cipro 500 mg BID x [address] Maldonado notified. [facility]11-03-2023 NotePatient called to report that he finished antibiotic for incision infection and was told looking better and they did take sample to send for culture.[facility]10-26-2023 NotePatient states he will repeat his tac level as not a true 12 hour trough, he did not take yesterday yoselin dose.[facility]10-26-2023 Note 02/08/23 DD Renal transplant on (08/15/2017) by Dr. Marquez. CMV +/-. Patient has recent history of an NH and had Pacer/Defib Placed. Patient here for follow up Nephrectomy Patient states he is feeling good with a 21 pound weight loss since bilat [place] kidney's removed. He states that he currently [...] Status albuterol (ProAir HFA) 90 mcg/actuation inhaler [id number] Yes Inhale 2 puffs every 4 (four) hours if needed for wheezing or shortness of breath. Laney Busch MD 01/24/2023529 Active aspirin 81 mg EC tablet [id number] Yes Take 81 mg by mouth in the morning. Makayla Gates MD 01/24/2023529 Active atorvastatin (Lipitor) 80 mg tablet [id number] Yes Take 1 tablet (80 mg) by mouth at bedtime. Federico Chester MD 01/23/2023 2100 Active clopidogrel (Plavix) 75 mg tablet [id number] Yes Take 1 tablet (75 mg) by mouth in the morning. Federico Chester MD Past Week Active empagliflozin (Jardiance) 10 mg [id number] Yes Take 1 tablet (10 mg) by mouth once daily as directed. Federico Chester MD 01/23/2023 08 Active esomeprazole (NexIUM) [address] capsule [id number] Yes Take 1 capsule (40 mg) by mouth before breakfast. Do not open capsule. Federico Chester MD 01/24/2023529 Active famotidine (Pepcid) 20 mg tablet [id number] Yes Take 20 mg by mouth in the morning and at bedtime. Historical ProviderMD Past Month 529 Active isosorbide mononitrate ER (Imdur) 60 mg 24 hr tablet [id number] Yes Take 1 tablet (60 mg) by mouth in the morning. Do not crush or chew. Federico Chester MD 01/24/2023529 Active lisinopril 5 mg tablet [id number] Yes Take 1 tablet (5 mg) by mouth in the morning. Federico Chester MD 01/24/2023 0800 Active magnesium oxide (Mag-Ox) 400 mg tablet [id number] Yes 400 mg in the morning. Makayla ProviderMD 01/24/2023529 Active metoprolol succinate XL (Toprol-XL) 200 mg 24 hr tablet [id number] Yes Take 1 tablet (200 mg) by mouth once daily as directed. Do not crush or chew. Federico Chester MD 01/24/2023529 Active mycophenolate (Myfortic) 180 mg EC tablet [id number] Yes Take 3 tablets (540 mg) by mouth in the morning and at bedtime. Bobby Maldonado MD 01/24/2023529 Active nitroglycerin (Nitrostat) 0.4 mg SL tablet [id number] Yes Place 0.4 mg under the tongue every 5 (five) minutes if needed for chest pain. Historical Provider, Past Month Active predniSONE (Deltasone) 5 mg tablet [id number] Yes Take 5 mg by mouth every other day. Historical Provider, 01/24/2023529 Active ranolazine (Ranexa) 500 mg 12 hr tablet [id number] Yes Take 1 tablet (500 mg) by mouth in the morning and at bedtime. Do not crush, chew, or split. Federico Chester MD 01/24/2023529 Active tacrolimus (Prograf) 0.5 mg capsule [id number] Yes tacrolimus 0.5 mg capsule, immediate-release TAKE 1 CAPSULE BY MOUTH TWICE DAILY Phoebe Culver MD 01/24/2023529 Active Immunization History Administered Date(s) Administered Unspecified Sars-Cov-2 Vaccination 12/30/2021 Patient Active Problem List Diagnosis Aftercare following organ transplant Kidney replaced by transplant Electrolyte abnormality Immunosuppression (CMS/HCC) Polycystic kidney disease, autosomal dominant Elevated hemoglobin (CMS/[facility]) Other abnormality of red blood cells Post-COVID chronic dyspnea Chronic systolic congestive heart failure (CMS/HCC) Active rickets Acute bronchitis Acute non-ST elevation myocardial infarction (NSTEMI) (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 artery disease 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 (CMS/HCC) Gastroesophageal [...] (LAD) artery for cor (more content not included)...[facility] 05-30-2022 NoteCARDIAC STRESS TEST Requesting Physician: Procedure Date:05/30/2022 INDICATIONS: [...] read, interpreted, and relayed in a separate dictation.[id number] Discharge instructions Patient Education 01/17/2022 12:05:57 Benign Prostatic Hyperplasia Benign Prostatic Hyperplasia Benign prostatic hyperplasia (BPH) is an enlarged prostate gland that is caused by the normal agingprocess and not by cancer. The prostate is [...] urethra. Follow these instructions at home: Take asha-ffz-tdtasoz and prescription medicines only as told by [...] 04/03/2006 Document Revised: 02/26/2019 Document Reviewed: 05/08/2017 [employer] Patient Education [employer]. Follow Up Care 11/09/2021 10:07:55 With:LEONARDA FRANK, Reji Farrell, URL Address: [facility] [address], [place] [address]- [phone] When:01/18/2024 Comments:PSA [facility] 10-03-2022 Evaluation + Plan note Diagnostic Tests Pending * PSA Total 01/17/22 [facility] 02-15-2022 NotePROCEDURE: [employer] VCT 64, 5.0 mm slice axial images [...] and signed by Anjum Remy on 06/01/2021 1051[facility]08-21-2021 NoteMR#: [id number] I [facility] Pt. Name: Vishal Duke Admitted: 12/02/2020 [...] by: Yonas Herrera MD 12/06/2020 01:51 P Yonas Herrera MD Date Dict: 12/04/2020/04:32 P/Yonas Herrera MD Date Trans: 12/05/2020 05:37 A/patrizia [id number]_JN:[id number] cc: Rosa M Gonzales M.D. [address] [facility] [address] NoteMR#: [id number] [facility] Pt. Name: Vishal Duke Date of Service: 12/02/2020 Room #: 4CD [id number] Birthdate: 1960 Referring Physician: CONSULTATION Reason for [...] disease, gout, GERD, hypertension, CAD status post NH and 2 stents, HLD, Covid pneumonia Past surgical history: AV fistula left arm, cardiac catheterization 10/29/2020, renal transplant 2018, cardiac catheterization 2017 with 2 stent placements, prior intraperitoneal dialysis [...] documentation from me. Date Dict: 12/02/2020/05:52 P/Angie Rollins Roland, DO Date Trans: 12/02/2020 05:52 P/ [id number] cc: Rosa M Gonzales M.D. [address] [place], [place] [address] [address]nc[facility]05-06-2021 NoteMR#: [id number] I [facility] Pt. Name: Vishal Duke Admitted: 08/02/2020 [...] x2 in June. The patient's son and bwqcuexd-xn-mvd were symptomatic just before him. The patient was complaining of fatigue and mild body aches. The patient also developed cough and mild shortness of breath. His dyspnea was initially with exertion, but progressed to minimal activity. After he spoke with his airplane dispatch clerk, he decreased his Myfortic dose and [...] by: Juan Ferreira M.D. 08/24/2020 03:34 P Juan Ferreira M.D. Date Dict: 08/19/2020/01:33 P/Juan Ferreira M.D. Date Trans: 08/20/2020 05:24 A/patrizia [id number]:[id number] cc: Rosa M Gonzales M.D. [address] [facility] [place] [address]QewDay[facility] CenterEvaluation + Plan note Future Appointments Appointment Date:01/11/2024 09:30:00 AM Scheduled Provider: Location:[facility] Appointment Type:Surgery FT Appointment Date:01/29/2024 10:30:00 AM Scheduled Provider:Reji BROWER MD Location:[facility] Appointment Type:URO [facility] Evaluation note* Diagnosis Encounter for immunization- Primary Tinea corporis Dermatophytosis of the body Type 2 diabetes mellitus without complications (CMS/HCC) documented in this encounter [facility]* Diagnosis Polycystic kidney disease, autosomal dominant- Primary Congenital polycystic kidney, autosomal dominant Kidney transplant status (CMS/HCC) Hypokalemia Hypopotassemia Ischemic cardiomyopathy (CMS/HCC) Other specified forms of chronic ischemic heart disease Add Pulmonary fibrosis, unspecified (J84.10) Atherosclerosis of [place] coronary artery of [place] heart with angina pectoris (CMS/HCC) Add Atherosclerosis of aorta (I70.0) Atherosclerosis of aorta Add 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 disease 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 (CMS/HCC) Essential hypertension (CMS/HCC) Unspecified essential hypertension Status post insertion of drug-eluting stent into left anterior descending (LAD) artery for coronary artery disease Immunosuppression ([facility]/HCC) History of kidney transplant (CMS/HCC) Kidney replaced by transplant Wellness examination- Primary Simple chronic bronchitis (CMS/HCC) Simple chronic bronchitis Chronic systolic congestive heart failure (CMS/HCC) Coronary artery disease 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 (CMS/HCC) Essential hypertension (CMS/HCC) Unspecified essential hypertension Gastroesophageal reflux disease without esophagitis Esophageal reflux PKD (polycystic kidney disease) Congenital polycystic kidney, unspecified type Immunosuppression (CMS/HCC) History of kidney transplant (CMS/HCC) Kidney replaced by transplant Mixed hyperlipidemia (CMS/HCC) Mixed hyperlipidemia Atherosclerotic heart disease of [place] coronary artery with unspecified angina pectoris (CMS/HCC) Ventricular fibrillation (CMS/HCC) Ventricular fibrillation Left lateral epicondylitis- Primary Simple chronic bronchitis (CMS/HCC) Simple chronic bronchitis Chronic systolic congestive heart failure (CMS/HCC) Coronary artery disease 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 (CMS/HCC) Essential hypertension (CMS/HCC) Unspecified essential hypertension Status post insertion of drug-eluting stent into left anterior descending (LAD) artery for coronary artery disease Immunosuppression (CMS/HCC) Mixed hyperlipidemia (CMS/HCC) Mixed hyperlipidemia Herpes zoster with complication- Primary Type 2 diabetes mellitus without complications (CMS/HCC) Immunodeficiency, unspecified (CMS/HCC) Chronic systolic (congestive) heart failure (CMS/HCC) Chronic obstructive pulmonary disease, unspecified (CMS/HCC) Cardiomyopathy, unspecified (CMS/HCC) documented in this encounter [facility] Present illness Narrative* Patient is seen in follow- up of recent hospitalization. He presented there with cardiac arrest. Forthat he underwent pacemaker defibrillator implantation and did well. Since that time he said no angina CHF or arrhythmia symptomatology. Treatment of his risk factors including his lipids and blood pressure is reviewed and felt to be adequate and appropriate * Following discharge he saw his regular Gunn by his rotor plate washer to agreed with and endorsed the care we rendered. The device was interrogated it in their office and it appears to be functioning appropriately. Because of all the above he is pleased with his care. He'll be following up henceforth with the [place] rotor plate washer and we advised him were always happy to participate in his care if he needs help. I believe his ICD will be interrogated and managed through their office. We also note thathis renal transplant was not injured as a result of the hospitalization and contrast administrationand/or antibiotic therapy because of this he is pleased. [facility] 250 DO Work Phone: Hospital course Narrative No data available for this section [facility] Hospital Discharge instructions No data available for this section [facility] Progress note No data available for this section [facility] Chief Complaint VISHAL DUKE is being seen for follow-up of a hospitalization for [facility] D/C 12/11/2020 ICD insert. Family History Unknown Family Member Name Dates Details Family history [...] section and content) DATE CREATED AUTHOR 04/25/2021 [facility] DATE CREATED AUTHOR AUTHOR'S ORGANIZ ATION 05/10/2021 [facility] DATE CREATED AUTHOR AUTHOR'S ORGANIZ ATION 07/18/2021 [facility] DATE CREATED AUTHOR AUTHOR'S ORGANIZ ATION 01/17/2022 [facility] dical Specialist DATE CREATED AUTHOR AUTHOR'S ORGANIZ ATION 08/25/2022 [facility] DATE CREATED AUTHOR AUTHOR'S ORGANIZ ATION 01/19/2024 [facility] DATE CREATED AUTHOR AUTHOR'S ORGANIZ ATION 01/30/2024 [facility] DATE CREATED AUTHOR AUTHOR'S ORGANIZ ATION 01/31/2024 [facility] dical Specialists [facility] DATE CREATED AUTHOR AUTHOR'S ORGANIZ ATION 01/31/2024 [facility] DATE CREATED AUTHOR AUTHOR'S ORGANIZ ATION 01/31/2024 [facility] Care Team (unrecognized sect ion and content) Wine And Spirits Clerk Relationship Specialty Start Date End Date Rosa M Gonzales MD [address] [place] [address] PCP - ACO Reach 09/08/22 Rosa M Gonzales MD [address] [place] [address] PCP - General Family Medicine 10/25/22 Rosa M Platt, TATO Registered Nurse Family Medicine 03/01/23 [employer] Sp[employer] Clerk Relationship Specialty Start Date End Date Rosa M Gonzales MD [address] [place] [address] PCP - General Family Medicine 10/25/22 Rosa M Gonzales MD [address] [place] [address] PCP - ACO Reach 08/16/23 Rosa M Platt, TATO Registered Nurse Family Medicine 03/01/23 [employer] And Spir[employer] Clerk Relationship Specialty Start Date End Date Rosa M Gonzales MD [address] [place] [address] PCP - General Family Medicine 10/25/22 Rosa M Gonzales MD [address] [place] [address] PCP - ACO Reach 08/16/23 Rosa M Platt RN Registered Nurse Family Medicine 03/01/23 [employer] And Spir[employer] Clerk Relationship Specialty Start Date End Date Rosa M Gonzales MD [address] [place] [address] PCP - General Family Medicine 10/25/22 Rosa M Gonzales MD [address] [place] [address] PCP - ACO Reach 08/16/23 Rosa M Platt, TATO Registered Nurse Family Medicine 03/01/23 Reason for Visit (unrecogniz ed section and content) Reason Comments Rash Along throat/chest, right side. Started couple of days ago. Reason Comments Rash FOR RECORDS PERTAINING TO PATIENTS WHO ARE [...] BE BASED ON THE PRIMARY CLINICAL RECORDS. [employer] provides no warranty or guarantee of the accuracy or completeness of information in this document.
[2024-02-01 10:07] LABS: Basophils Percent Auto 0.5 % (0.2-2.0); Eosinophils Absolute Auto 0.1 10^3/uL (0.0-0.7); Hematocrit 50.4 % (42.0-54.0); Immature Granulocytes Abs Auto 0.03 10^3/uL (0.00-0.03); Immature Granulocytes Pct Auto 0.4 % (0.0-0.5); Lymphocytes Absolute Auto 0.9 10^3/uL (1.2-3.8); Lymphocytes Percent Auto 11.7 % (20.5-60.0); Mean Corpuscular HGB Conc 33.7 g/dL (29.9-35.2); Mean Corpuscular Hemoglobin 30.5 pg (25.9-34.0); Mean Corpuscular Volume 90.3 fL (80.0-94.0); Mean Platelet Volume 10.3 fL (9.5-13.5); Monocytes Absolute Auto 0.8 10^3/uL (0.3-0.8); Monocytes Percent Auto 10.6 % (1.7-12.0); Neutrophils Absolute Auto 5.6 10^3/uL (1.4-6.5); Neutrophils Percent Auto 75.8 % (43.0-75.0); Platelet Count 189 10^3/uL (150-450); Red Blood Count 5.58 10^6/uL (4.70-6.10); Red Cell Distribution Width 13.6 % (11.0-15.0); White Blood Count 7.4 10^3/uL (4.0-11.0)
[2024-02-01 11:05] LABS: Estimated Average Glucose 128 mg/dL; Glycohemoglobin A1C 6.1 % (4.5-6.2)
[2024-02-01 11:11] LABS: Alanine Aminotransferase 41 U/L (16-63); Albumin Globulin Ratio 1.1; Alkaline Phosphatase 129 U/L (46-116); Anion Gap 16.6; Aspartate Amino Transferase 33 U/L (15-37); BUN Creatinine Ratio 17.2; Bilirubin Direct 0.2 mg/dL (0.0-0.2); Bilirubin Total 0.9 mg/dL (0.2-1.0); Calcium 9.7 mg/dL (8.5-10.1); Carbon Dioxide 24.1 mmol/L (21.0-32.0); Chloride 103 mmol/L (98-107); Estimated GFR (African America 60 (>=60 mL/min/1.73m^2); Estimated GFR (Non-African Ame 49 (>=60 mL/min/1.73m^2); Globulin 3.6 g/dL; Glucose 136 mg/dL (74-106); Magnesium 2.3 mg/dL (1.8-2.4); Phosphorus 3.1 mg/dL (2.6-4.7); Potassium 4.7 mmol/L (3.5-5.1); Sodium 139 mmol/L (136-145); Total Protein 7.6 g/dL (6.4-8.2); Uric Acid 5.5 mg/dL (3.5-7.2)
[2024-02-02 04:08] LABS: Sex Horm Binding Glob, Serum 29.1 nmol/L (19.3-76.4)
[2024-02-05 04:06] LABS: Tacrolimus (FK506), Blood 4.3 ng/mL (2.0-20.0)
[2024-02-07 00:06] LABS: Testosterone 136 ng/dL (264-916)
== END 2024-02-01 09:40 | disposition home or self-care (01) ==
PROVIDERS: PCP Family Medicine
DX: E13.9 Other specified diabetes mellitus without complications (principal); Z94.0 Kidney transplant status
CPT/HCPCS: 36415; 80053; 80197; 82248; 83036; 83735; 84100; 84270; 84402; 84403; 84550; 85025

== ENCOUNTER 2024-03-05 09:13 | Outpatient (OUT) | payer MEDICARE, SELFPAY ==
[2024-03-05 09:59] LABS: Basophils Percent Auto 0.6 % (0.2-2.0); Eosinophils Absolute Auto 0.1 10^3/uL (0.0-0.7); Eosinophils Percent Auto 1.5 % (0.9-7.0); Hematocrit 49.5 % (42.0-54.0); Hemoglobin 16.3 g/dL (14.0-18.0); Immature Granulocytes Abs Auto 0.02 10^3/uL (0.00-0.03); Immature Granulocytes Pct Auto 0.3 % (0.0-0.5); Lymphocytes Absolute Auto 0.9 10^3/uL (1.2-3.8); Lymphocytes Percent Auto 14.3 % (20.5-60.0); Mean Corpuscular HGB Conc 32.9 g/dL (29.9-35.2); Mean Corpuscular Hemoglobin 30.5 pg (25.9-34.0); Mean Corpuscular Volume 92.7 fL (80.0-94.0); Mean Platelet Volume 10.3 fL (9.5-13.5); Monocytes Absolute Auto 0.6 10^3/uL (0.3-0.8); Monocytes Percent Auto 8.5 % (1.7-12.0); Neutrophils Absolute Auto 4.9 10^3/uL (1.4-6.5); Neutrophils Percent Auto 74.8 % (43.0-75.0); Platelet Count 213 10^3/uL (150-450); Red Blood Count 5.34 10^6/uL (4.70-6.10); Red Cell Distribution Width 14.5 % (11.0-15.0); White Blood Count 6.6 10^3/uL (4.0-11.0)
[2024-03-05 10:39] LABS: Estimated Average Glucose 137 mg/dL; Glycohemoglobin A1C 6.4 % (4.5-6.2)
[2024-03-05 11:14] LABS: Alanine Aminotransferase 43 U/L (16-63); Albumin Globulin Ratio 1.3; Albumin Level 3.9 g/dL (3.4-5.0); Alkaline Phosphatase 94 U/L (46-116); Anion Gap 15.7; Aspartate Amino Transferase 25 U/L (15-37); BUN Creatinine Ratio 14.6; Bilirubin Direct 0.2 mg/dL (0.0-0.2); Bilirubin Total 0.8 mg/dL (0.2-1.0); Calcium 9.4 mg/dL (8.5-10.1); Carbon Dioxide 25.8 mmol/L (21.0-32.0); Chloride 106 mmol/L (98-107); Chol HDL Ratio 3.1; Cholesterol 133 mg/dL (<=200); Estimated GFR (African America >60 (>=60 mL/min/1.73m^2); Estimated GFR (Non-African Ame 52 (>=60 mL/min/1.73m^2); Glucose 138 mg/dL (74-106); HDL Cholesterol 43 mg/dL (40-60); Magnesium 1.8 mg/dL (1.8-2.4); Phosphorus 3.6 mg/dL (2.6-4.7); Potassium 4.5 mmol/L (3.5-5.1); Sodium 143 mmol/L (136-145); Total Protein 6.9 g/dL (6.4-8.2); Triglycerides 202 mg/dL (<=150); Uric Acid 6.3 mg/dL (3.5-7.2); VLDL CHOLESTEROL 40.4 mg/dL
[2024-03-06 08:12] LABS: Sex Horm Binding Glob, Serum 32.1 nmol/L (19.3-76.4)
[2024-03-07 15:09] LABS: BKV DNA, Quant PCR, Plasma Negative (Negative)
[2024-03-07 19:08] LABS: Tacrolimus (FK506), Blood 5.9 ng/mL (2.0-20.0)
[2024-03-09 05:09] LABS: Free Testosterone(Direct) 6.8 pg/mL (6.6-18.1); Testosterone 346 ng/dL (264-916)
== END 2024-03-05 09:14 | disposition home or self-care (01) ==
LOC: LAB 09:15
PROVIDERS: PCP Family Medicine; Visit Provider Urology
DX: Z94.0 Kidney transplant status (principal); E13.9 Other specified diabetes mellitus without complications
CPT/HCPCS: 36415; 80053; 80061; 80197; 82248; 83036; 83735; 84100; 84270; 84402; 84403; 84550; 85025; 87799

== ENCOUNTER 2024-04-04 07:18 | Outpatient (OUT) | payer MEDICARE, SELFPAY ==
--- OUTSIDE RECORDS SUMMARY | 2024-04-04 07:24 | XMS_ITS | CCD ---
Author Organization [facility] Care Team Providers Care Visitor Service Assistant Name Role Phone Rosa M Gonzales Unavailable Unavailable Unavailable YONAS HERRERA Surgeon Unavailable OR Procedure Practitioner Unavailab YONAS Hsieh Attending Unavailable [...] Primary Care Unavailable YOJANA MCDANIELS Surgeon Unavailable OR Procedure Practitioner Unavailab prabhakar MACDONALD, REFERRED Referring [...] Unavailable JANET, DR DUVAL Primary Care Unavailable LACEYVILLE, DR AIME Arnold Consulting Unavailable ELTAHAWY, DR [...] DUVAL Primary Care Unavailable MISC, DR PEDERSEN Attending Unavailable MISC, DR PEDERSEN Consulting Unavailable MISC, DR PEDERSEN Admitting Unavailable MISC, DR PEDERSEN Attending Unavailable MISC, DR PEDERSEN Consulting Unavailable JANET, DR DUVAL Primary Care Unavailable MISC, DR PEDERSEN Admitting Unavailable Rosa M Gonzales MD Unavailable Rosa M Gonzales MD Primary Care Provider Lc GODWIN, Rosa M Unavailable ROSA M GONZALES Primary Care Physician Rosa M Gonzales MD Unavailable [phone] ALICIA FISHMAN Attending Unavailable JANETROSA M GARCIA Attending Unavailable PETALICIA FELDMAN Attending Unavailable ROSA M GONZALES Attending Unavailable EFREN CENTENO Attending Unavailable KAMPNICKI THOMAS Attending Unavailable KAMGAYR, NICKI Attending Unavailable Reji BROWER Attending Unavailable Sarmini, Schmidt Talanel Referring Unavaila ble Sarmini, Schmidt Talal Admitting Unavaila ble Sarmini, Schmidt Talal Attending Unavaila ble Sarmini, Schmidt Talal Attending Unavaila ble Reji BROWER Attending Unavailable STEPHANIE, FEDERICO Attending Unavailable TEAGAN VILLANUEVA Referring Unavailable PETEY REDDING Attending Unavailable EKINES OBSanchez Attending Unavailable SAVZMACRINA GONZALEZ Attending Unavailable ELJONNY, EH Attending Unavailable TEAGAN VILLANUEVA Referring Unavailable STEPHANIE, EHAB Attending Unavailable Allergies Allergy Classification Reported Allergen(s) Allergy Type Date of Onset Reaction(s) Facility (1 source) 32297,00; Translations: [89749,00] Propensity to adverse reactions (disorder) 9 [facility] Repository (2 sources) Cephalexin; Translations: [Keflex] Drug Allergy [facility] Repository Medications Current Medications Medication Drug Class(es) Dates Sig (Normalized) Sig (Original) acetaminophen 325 mg / HYDROcodone bitartrate 5 mg oral tablet (1 source) Opioid Agonist Start: 01-30-2024 End: 02-02-2024 take 1 tablet by mouth every six hours for pain HYDROcodone-acetam inophen (Kamrar) 5-325 MG tablet Indications: Herpes zoster without complication Take 1 tablet by mouth every 6 (six) hours if needed for severe pain for up to 3 days 12 tablet 01/30/2024 02/02/2024 Active [id number] actuat albuterol 0.09 mg/actuat metered dose inhaler (12 sources) beta2-Adrenergic Agonist Start: 10-24-2022 End: 06-26-2024 take 2 puff(s) by inhalation every four hours albuterol HFA 90 mcg/act inhaler Indications: Simple chronic bronchitis (CMS/HCC) Inhale 2 puffs every 4 (four) hours if needed for shortness of breath 18 g 06/27/2023 06/26/2024 Active atorvastatin 80 mg oral tablet (18 sources) HMG-CoA Reductase Inhibitor Start: 01-17-2022 take [...] 04-Jan-2021 Active clopidogrel 75 mg oral tablet (18 sources) P2Y12 Platelet Inhibitor Start: 01-04-2021 take 1 tablet by mouth once daily clopidogrel 75 mg Tab 75 mg = 1 tab(s), Oral, Daily, Blood Thinner Start Date: 01/17/22 Status: Ordered clotrimazole 10 mg oral lozenge (4 sources) Azole Antifungal Start: 01-01-2020 take 1 [...] DO Active empagliflozin 10 mg oral tablet (12 sources) Sodium-Glucose Cotransporter 2 Inhibitor Start: 07-05-2022 End: 07-05-2023 take 10 mg by mouth in the morning empagliflozin (Jardiance) 10 MG Take 10 mg by mouth in the morning. 07/05/2022 Active esomeprazole 40 mg delayed release oral capsule (15 sources) Proton Pump Inhibitor Start: 01-11-2024 take 1 capsule by mouth once daily Nexium 40 mg Cap-EC 40 mg = 1 cap(s), Oral, Daily, Refills(s) 0, Control of stomach acid Start Date: 01/11/24 Status: Ordered take 1 capsule by mouth in the m orning esomeprazole (NexIUM) [address] capsule Take 1 capsule by mouth in the morning. Active fluocinonide 0.5 mg/ml topical solution (1 source) Corticosteroid Start: 02-06-2023 fluocinonide (Lidex) 0.05 % external solution Indications: Other seborrheic dermatitis Apply to affected areas on the scalp twice a day for flares, set aside when clear. 30 days 60 mL 11 02/06/2023 Active 24 hr isosorbide mononitrate 60 mg extended release oral tablet (15 sources) Nitrate Vasodilator Start: 01-11-2024 take 1 [...] 09/21/2022 Active ketoconazole 20 mg/ml topical cream (5 sources) Azole Antifungal Start: 01-26-2024 End: 02-09-2024 ketoconazole (NIZOral) 2 % cream Indications: Tinea corporis Apply topically Daily for 14 days Apply thin layer to affected area daily 60 g 01/26/2024 02/09/2024 Active lisinopril 5 mg oral tablet (18 sources) Angiotensin Converting Enzyme Inhibitor Start: 01-03-2020 take 1 mg by mouth once daily lisinopril 5 mg Tab mg tab(s), Oral, Daily, Refills(s) 0, High blood pressure Start Date: 01/03/20 Status: Ordered magnesium amino acid chelate (2 sources) Start: 01-01-2020 magnesium butcher o acids chelate Oral, Refills(s) 0 Start Date: 01/01/20 Status: Ordered magnesium oxide 400 mg oral tablet (18 sources) Start: 12-08-2023 take 1 tablet by [...] bedtime) 270 tablet 1 12/08/2023 Active Start: 07-01-2020 take 1 tablet by jacob th three times daily Magnesium Oxide 400 (241.3 Mg) MG Oral Tablet TAKE 1 TABLET BY MOUTH THREE TIMES DAILY Quantity: 90 Refills: 0 Ordered: 03-Mar-2021 DO Start : 01-Jul-2020 Active 24 hr metoprolol succinate 200 mg extended release oral tablet (18 sources) beta-Adrenergic Temo Start: 11-21-2022 take 1 [...] acid 180 mg delayed release oral tablet (20 sources) Antimetabolite Immunosuppressant Start: 03-21-2024 End: 03-21-2025 take 1 tablet by mouth in the morning mycophenolate (Myfortic) 180 MG EC tablet Indications: Aftercare following organ transplant Take 1 tablet (180 mg) by mouth in the morning and 1 tablet (180 mg) before bedtime. 180 tablet 03/21/2024 03/21/2025 Active Start: 07-25-2023 End: 03-19-2024 take 3 tablets by mouth twice daily at bedtime mycophenolate (Myfortic) 180 MG EC tablet TAKE 3 TABLETS BY MOUTH TWICE DAILY IN THE MORNING AT BEDTIME 07/25/2023 03/19/2024 Discontinued (Reorder) Start: 12-14-2022 End: 06-12-2023 take 3 tablets by mouth in the morning mycophenolate (Myfortic) 180 MG EC tablet Indications: History of kidney transplant (CMS/HCC) Take 3 tablets (540 mg) by mouth in the morning and 3 tablets (540 mg) before bedtime. 540 tablet 1 12/14/2022 06/12/2023 Active Start: 02-03-2021 take 3 tablets by mo [facility] twice daily Mycophenolate Sodium 180 MG Oral Tablet Delayed Release TAKE 3 TABLET Twice daily Quantity: 0 Refills: 0 Ordered: 04-Apr-2021 DO Start : 03-Feb-2021 Active Start: 01-01-2020 take 1 mg by mouth twice daily mycophenolic acid 180 mg oral enteric coated tablet mg tab(s), Oral, BID, Refills(s) 0 Start Date: 01/01/20 Status: Ordered nitroglycerin 0.4 mg sublingual tablet (13 sources) Nitrate Vasodilator Start: 11-08-2022 End: 11-08-2023 nitroglycerin (Nitrostat) 0.4 MG SL tablet Indications: Coronary artery disease involving [place] coronary artery of [place] heart with unstable angina pectoris ([facility]) Place 1 tablet (0.4 mg) under [...] 5 MG tablet Indications: Kidney transplant status ([facility]) TAKE 1 TABLET BY MOUTH DAILY 90 tablet 0 03/14/2023 Active Start: 11-06-2020 [facility] daily predniSONE 5 MG Oral Tablet TAKE 1 TABLET DAILY. Quantity: 0 Refills: 0 Ordered: 04-Apr-2021 DO Start : 06-Nov-2020 Active 12 hr ranolazine 500 mg extended release oral tablet (17 sources) Anti-anginal Start: 01-17-2022 take 1 tablet [...] Status: Ordered tacrolimus 0.5 mg oral capsule (20 sources) Calcineurin Inhibitor Immunosuppressant Start: 03-04-2024 tacrolimus 0.5 mg oral capsule 1 mg = 2 cap(s), Refills(s) 0 Start Date: 03/04/24 Status: Ordered Start: 07-19-2023 take 1 capsule by mo uth once daily tacrolimus (Prograf) 1 MG capsule Take 1 mg by mouth Daily 07/19/2023 Active Start: 11-08-2022 End: 01-15-2024 take 1 capsule by mouth in the morning tacrolimus (Prograf) 0.5 MG capsule Indications: History of kidney transplant (CMS/HCC) Take 1 capsule (0.5 mg) by mouth in the morning and 1 capsule (0.5 mg) before bedtime. 180 capsule 10/17/2023 01/15/2024 Active Start: 07-01-2020 Tacrolimus 1 M G Oral Capsule TAKE DIRECTED. Quantity: 0 Refills: 0 Ordered: 04-Apr-2021 DO Start : 01-Jul-2020 Active Start: 01-01-2020 tacrolimus 1 m g, Refills(s) 0, Other (see comment) Start Date: 01/01/20 Status: Ordered Start: 01-01-2020 tacrolimus 1 m g, Refills(s) 0 Start Date: 01/01/20 Status: Ordered valACYclovir 1000 mg oral tablet (3 sources) Herpesvirus Nucleoside Analog DNA Polymerase Inhibitor, Herpes [...] Sig (Original) aspirin 81 mg chewable tablet (18 sources) Platelet Aggregation Inhibitor, Nonsteroidal Anti-inflammatory Drug [...] mg by mouth in the morning. Active famotidine 40 mg oral tablet (6 sources) Histamine-2 Receptor Antagonist Start: 02-15-2024 End: 03-21-2024 take 1 tablet by mouth at bedtime famotidine (Pepcid) 40 MG tablet Take 40 mg by mouth at bedtime 02/15/2024 03/21/2024 Discontinued (Therapy completed) Start: 12-25-2023 take 1 tablet by jacob th once daily at bedtime famotidine 40 mg Tab 40 mg = 1 tab(s), Oral, Once a day (at bedtime), # 90 tab(s), Refills(s) 0, Pharmacy: [id number], 177.8, cm, 12/25/23 9:23:00 EDT, Height/Length Dosing, 94.3, kg, 12/25/23 9:23:00 EDT, Weight Dosing Start Date: 12/25/23 Status: Ordered Problems Active Problems Problem Classification Problem Date Documented Date Episodic/Chronic Acute and unspecified renal failure (17 sources) Renal failure syndrome; Translations: [Unspecified kidney failure] Onset: 3 01-01-2020 Chronic Acute myocardial infarction (20 sources) Myocardial infarction; Translations: [Acute non-ST segment elevation myocardial infarction] Onset: 3 01-17-2022 Chronic Cardiac arrest and ventricular fibrillation (12 sources) Ventricular fibrillation; Translations: [Cardiac arrest] Onset: 4 07-27-2023 Chronic Cardiac dysrhythmias (12 sources) Ventricular tachycardia; Translations: [Ventricular tachycardia] Onset: 3 11-08-2022 Chronic Cataract (20 sources) Age-related nuclear cataract of left eye; Translations: [Age-related nuclear cataract, left eye] Onset: 3 10-25-2022 Chronic Chronic kidney disease (20 sources) Kidney transplant status; Translations: [Chronic kidney disease stage 3] Onset: 0 Chronic Chronic obstructive pulmonary disease and bronchiectasis (14 sources) Chronic obstructive lung disease; Translations: [Chronic [...] Onset: 4 Chronic Congestive heart failure; nonhypertensive (16 sources) Chronic systolic heart failure; Translations: [Chronic systolic (congestive) heart failure] Onset: 3 11-08-2022 Chronic Coronary atherosclerosis and other heart disease (20 sources) Coronary atherosclerosis; Translations: [Coronary atherosclerosis of [place] coronary artery] Onset: 2 Chronic Deficiency and other anemia (12 sources) Increased hemoglobin; Translations: [Other hemoglobinopathies] Onset: 3 11-08-2022 Chronic Diabetes mellitus without complication (6 sources) Type 2 diabetes mellitus without complication; Translations: [Type 2 diabetes mellitus without complications] Onset: 4 01-26-2024 Chronic Diabetes mellitus without complication (17 sources) Impaired fasting glycemia; Translations: [Impaired fasting glucose] Onset: 3 07-27-2023 Episodic Disorders of lipid metabolism (20 sources) Hyperlipidemia; Translations: [Other and unspecified hyperlipidemia] Onset: 3 01-01-2020 Chronic Esophageal disorders (16 sources) Gastroesophageal reflux disease; Translations: [Gastro-esophageal reflux disease without esophagitis] Onset: 0 11-08-2022 Chronic Essential hypertension (20 sources) Hypertensive disorder; Translations: [Essential hypertension] Onset: 2 01-01-2020 Chronic Genitourinary congenital anomalies (20 sources) Autosomal dominant polycystic kidney disease; Translations: [Polycystic kidney, adult type] Onset: 3 11-08-2022 Chronic Genitourinary congenital anomalies (2 sources) H/O: congenital anomaly; Translations: [Personal history of other specified (corrected) congenital malformations of genitourinary system] Onset: 2 Episodic Gout and other crystal arthropathies (20 sources) 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; Translations: [Chronic gout due to renal impairment, multiple sites, without tophus (tophi)] Onset: 2 11-08-2022 Chronic Hyperplasia of prostate (20 sources) Benign prostatic hypertrophy with outflow obstruction; Translations: [Benign prostatic hyperplasia with lower urinary tract symptoms] Onset: 2 Chronic Immunity disorders (16 sources) Immunosuppression; Translations: [Immunodeficiency, unspecified] Onset: 3 11-08-2022 Chronic Immunizations and screening for infectious disease (2 sources) Patient encounter status; Translations: [Encounter for immunization] 01-26-2024 Episodic Mycoses (2 sources) Tinea corporis; Translations: [Tinea corporis] 01-26-2024 Episodic Nutritional deficiencies (12 sources) Active rickets; Translations: [Rickets, active] Onset: 3 Resolved: 4 11-08-2022 Chronic Other aftercare (12 sources) Transplant follow-up; Translations: [Encounter for aftercare following other organ transplant] Onset: 3 11-08-2022 Chronic Other aftercare (2 sources) Encounter for aftercare following other organ transplant; Translations: [Encounter for aftercare following other organ transplant] Onset: 3 Chronic Other and unspecified benign neoplasm (8 sources) History of polyp of colon; Translations: [Personal history of colonic polyps] Onset: 4 Episodic Other and unspecified benign neoplasm (1 source) Polyp of colon; Translations: [Polyp of colon] Onset: 4 Episodic Other endocrine disorders (12 sources) Male hypogonadism; Translations: [Testicular hypofunction] Onset: 3 11-08-2022 Chronic Other nervous system disorders (12 sources) Neuropathy; Translations: [Polyneuropathy, unspecified] Onset: 3 11-08-2022 Chronic Other nutritional; endocrine; and metabolic disorders (12 sources) Hypervitaminosis A; 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] Onset: 3 11-08-2022 Chronic Other screening for suspected conditions (not mental disorders or infectious disease) (8 sources) Abnormal electrocardiogram [ECG] [EKG]; Translations: [Screening for malignant neoplasm of colon done] Onset: 3 Episodic Louisa-; endo-; and myocarditis; cardiomyopathy (except that caused by tuberculosis or sexually transmitted disease) (2 sources) Cardiomyopathy; Translations: [Cardiomyopathy, unspecified] 01-29-2024 Chronic Screening and history of mental health and substance abuse codes (1 source) Ex-smoker; Translations: [Personal history of tobacco use] Episodic Comment on above: Quit in 2008; Unclassified (4 sources) Patient encounter status 12-22-2023 Unclassified (2 sources) Kidney Follow-up; Translations: [Kidney Follow-up] Onset: Viral infection (4 sources) Herpes zoster; Translations: [Zoster with other complications] 01-29-2024 Episodic Past or Other Problems Problem Classification Problem Date Documented Date Episodic/Chronic Acute bronchitis (12 sources) Acute bronchitis; Translations: [Acute bronchitis, unspecified] Onset: 03-28-2013 02-02-2023 Episodic Fluid and electrolyte disorders (20 sources) Disorder of electrolytes; Translations: [Other disorders of electrolyte and fluid balance, not elsewhere classified] Onset: 05-04-2022 11-08-2022 Episodic Genitourinary symptoms and ill-defined conditions (20 sources) Nocturia; Translations: [Nocturia] Onset: 01-17-2022 Episodic Mood disorders (12 sources) Mood disorders Onset: 11-08-2022 11-08-2022 Nonspecific chest pain (13 sources) Chest pain; Translations: [Chest pain, unspecified] Onset: 06-05-2023 07-27-2023 Episodic Other hematologic conditions (12 sources) Red blood cell disorder; Translations: [Other abnormality of red blood cells] Onset: 11-08-2022 11-08-2022 Episodic Other lower respiratory disease (12 sources) Other forms of dyspnea; Translations: [Other respiratory abnormalities] Onset: 10-24-2022 02-02-2023 Episodic Other upper respiratory infections (12 sources) Upper respiratory infection; Translations: [Acute upper respiratory infection, unspecified] Onset: 11-08-2022 11-08-2022 Episodic Residual codes; unclassified (12 sources) At risk for infection; Translations: [Personal history of immunosupression therapy] Onset: 12-30-2019 02-02-2023 Episodic Urinary tract infections (12 sources) Pyelonephritis; Translations: [Tubulo-interstitial nephritis, not specified as acute or chronic] Onset: 12-09-2009 11-08-2022 Episodic Results Test Name Value Interpretation Reference Range Facility HbA1c (Bld) [Mass fraction]o n 03-21-2024 Interpretation and review of laboratory results Normal [facility] - Hematology and Cell countson 03-21-2024 HbA1c (Bld) [Mass fraction] 6.4 % [facility] Office Visiton 03-18-2024 Follow-up visit [id number] Waldemar Duke 1960 M Date Provider Department Center 03/18/2024 271-STEPHANIE, EHAB CARD [facility] Family History Problem Relation Age of Onset Alzheimer's disease Mother Coronary artery disease Father Family Status - Relation Status Age at Mother Father Level of Service:11201 OR OFFICE/OUTPATIENT ESTABLISHED LOW MDM 20 MIN Normal [facility] ALL CBC WITH AUTO DIFFon BASOPHILS ABSOLUTE AUTO [address] [facility] Basophils/100 WBC (Bld) 0.6 % 0.2 - 2.0 % [facility] Eosinophils/100 WBC (Bld) 1.5 % 0.9 - 7.0 % [facility] Erythrocyte distribution width (RBC) [Ratio] 14.5 % 11.0 - 15.0 % [facility] Hematocrit (Bld) [Volume fraction] 49.5 % 42.0 - 54.0 % [facility] Hemoglobin (Bld) [Mass/Vol] 16.3 g/dL 14.0 - 18.0 g/dL [facility] IMMATURE GRANULOCYTES ABS AUTO 0.02 [facility] Immature granulocytes/100 WBC (Bld) 0.3 % 0.0 - 0.5 % [facility] Interpretation and review of laboratory results Abnormal [facility] LYMPHOCYTES ABSOLUTE AUTO 0.9 Low [facility] Lymphocytes/100 WBC (Bld) 14.3 % Low 20.5 - 60.0 % [facility] MCH (RBC) [Entitic mass] 30.5 pg 25.9 - 34.0 pg [facility] MCHC (RBC) [Mass/Vol] 32.9 g/dL 29.9 - 35.2 g/dL [facility] MCV (RBC) [Entitic vol] 92.7 fL 80.0 - 94.0 fL [facility] MONOCYTES ABSOLUTE AUTO 0.6 [facility] Monocytes/100 WBC (Bld) 8.5 % 1.7 - 12.0 % [facility] NEUTROPHILS ABSOLUTE AUTO 4.9 [facility] Neutrophils/100 WBC (Bld) 74.8 % 43.0 - 75.0 % [facility] Platelet mean volume (Bld) [Entitic vol] 10.3 fL 9.5 - 13.5 fL [facility]H EO # 0.1 [facility] [address]T [address] [facility] RBC 5.34 [facility] WBC 6.6 [facility] Ambulatory Visit Summaryon 1 05-04-2023 Ambulatory Visit Summary Ambulatory Visit Summary VISHAL DUKE :1960 Visit Date:12/25/2019 Ambulatory Visit Instructions Your Diagnosis BPH with urinary obstruction Other obstructive and reflux uropathy Your Care Team Primary Care Physician - JANET FRANK, ROSA M Palomino This Is Your Medications List aspirin (aspirin 81 mg oral tablet) atorvastatin (atorvastatin 80 mg Tab) clopidogrel (clopidogrel 75 mg Tab) esomeprazole (Nexium 40 mg Cap-EC) isosorbide mononitrate (isosorbide mononitrate 60 mg ER Tab) lisinopril (lisinopril 5 mg Tab) magnesium oxide (magnesium oxide 400 mg Tab) metoprolol (Metoprolol tartrate 50 mg Tab) mycophenolic acid (mycophenolic acid 180 mg oral enteric coated tablet) ranolazine (ranolazine 500 mg oral ER Tab) tacrolimus tacrolimus (tacrolimus 0.5 mg oral capsule) Procedures Performed Colonoscopy (01/11/2024), Esophagogastroduodenoscopy (01/11/2024), Bilateral total nephrectomy (01/2023), Kidney transplant (01/01/2018), Bilateral vasectomy, Colonoscopy, Placement of stent in cardiac conduit, Triple coronary bypass. Medications What How Much When Instructions Unchanged aspirin (aspirin 81 mg oral tablet) By Mouth Every day Unchanged atorvastatin (atorvastatin 80 mg Tab) 1 Tablets By Mouth Every day Unchanged clopidogrel (clopidogrel 75 mg Tab) 1 Tablets By Mouth Every day Unchanged esomeprazole (Nexium 40 mg Cap-EC) 1 Capsules By Mouth Every day Unchanged isosorbide mononitrate (isosorbide mononitrate 60 mg [...] times a day Unchanged tacrolimus 1 Milligram Unchanged tacrolimus (tacrolimus 0.5 mg oral capsule) 2 Capsules Allergies No Known Allergies Problems Ongoing - Any problem that you are currently receiving treatment for. BPH with urinary obstruction Glucosuria History of colon polyps Hyperlipidemia Hypertension Kidney transplanted Microhematuria Myocardial infarct Nocturia polycystic kidney disease Renal failure Screen for colon cancer Patient Survey You may receive a survey via text or e-mail asking about your office visit. Please share your experience with us by completing your survey. We appreciate your feedback and thank you for choosing us for your care. [facility] Reminderson 03-04-2024 Reminders Reminders From: Marie Lobato To: EU - Administrative; Sent: 03/04/2024 15:07:27 EST Show up: 05/18/2025 15:07:00 EST Subject: Ambulatory Reminder Due Date/Time: 03/01/2026 15:07:00 EST Reminder/Recall Patient needs scheduled with PR[facility] for a 2 yr f/u with PSA, due back in February of 2026 [facility] Urology Office/Clinic Noteon 03-04-2024 Urology Office/Clinic Note Urology Office/Clinic Note Chief Complaint BPH with urinary obstruction HPI Staff 2 year f/u with PSA Dx: BPH with urinary obstruction, nocturia and polycystic kidney disease (kidney transplant 01/01/18) PSA 01/25/24 - 0.91 Dysuria: denies Incomplete bladder emptying: denies Hematuria: denies Frequency: denies Urgency: denies Nocturia: 1-2x Stream: good steady Leaking: denies Post void dripping: denies Wearing pads/ Depends: depends Urge incontinence: denies Stress incontinence: denies Incontinence without Sensory Awareness: denies Abdominal pain: discomfort off and on after bilateral nephrectomy a year ago Flank pain: some discomfort every now and then Sexual complaints: denies History of Present Illness Tests reviewed: reviewed UA, PSA I have reviewed the previous health record information and history for this patient from Dr. Brower. I have reviewed and verified the staff HPI to be accurate for this encounter. Review of Systems PHQ Score Initial Depression Screen Score: 0 SCORE ROS - Provider Constitutional: denies weight loss, denies hot flashes. Eyes: denies eye problems. Gastrointestinal: denies nausea, denies vomiting. Cardiovascular: denies chest pain or angina. Integumentary: no dryness Musculoskeletal: denies musculoskeletal symptoms. ENMT: denies otolaryngeal symptoms. Respiratory: no shortness of breath. Heme/Lymph: denies easy bleeding tendency, denies easy bruising tendency. Psychiatric: no confusion, no anxiety. Genitourinary: See HPI. Physical Exam Vitals & Measurements T: 37 ???C(Temporal Artery) HR: 67(Peripheral) RR: 18 BP: 119/75 HT: 71 in HT: 180 cm WT: 94 kg WT: 207.234 lb BMI: 29.01 General Appearance: alert, no distress, well nourished, well developed male. Assessment/Plan 1. BPH with urinary obstruction (N40.1: Benign prostatic hyperplasia with lower urinary tract symptoms) PSA 12/25/19 - 0.703 12/25/21 - 0.72 01/25/24 - 0.91 Not taking any BPH meds. UA today negative for blood and infection. No bother with urination. PSA remains stable. Will continue to monitor. -F/u in 2 yrs w/ PSA 2. polycystic kidney disease (Z87.718: Personal history of other specified (corrected) congenital malformations of genitourinary system) S/p kidney transplant 01/01/18. S/p Robotic assisted bilateral nephrectomy 01/24/23 [facility] by Dr. Bobby Maldonado. Per pt, kidney weighed 23 lbs. Most recent renal fxn 02/01/24 - BUN 25, Cr 1.45, GFR 49. No proteinuria per UA today. States baseline Cr 1.0-1.1. Was infected at time of recent blood work. 3. Glucosuria (R81: Glycosuria) UA todya >=1000 mg/dL. On . Follow-up With When Contact Information LEONARDA FRANK, Reji Farrell, URL [facility] [address], [place] [address]- [phone] Additional Instructions: 2 yrs w/ PSA Patient Education Benign Prostatic Hyperplasia I, Esther Pan, personally scribed for Dr. Brower on 03/04/2024 15:02:32. . Documentation recorded by the scribe, Esther Pan, accurately reflects the services(s) I performed and decisions made by me. Authenticated by Dr. Brower on 03/04/2024 15:03:28. Problem List/Past Medical History Ongoing BPH with urinary obstruction Glucosuria History of colon polyps Hyperlipidemia Hypertension Kidney transplanted Microhematuria Myocardial infarct Nocturia polycystic kidney disease Renal failure Screen for colon cancer Historical No qualifying data Procedure/Surgical History Colonoscopy (01/11/2024), Esophagogastroduodenoscopy (01/11/2024), Bilateral total nephrectomy (01/2023), Kidney transplant (01/01/2018), Bilateral vasectomy, Colonoscopy, Placement of stent in cardiac conduit, Triple coronary bypass. Medications aspirin 81 mg oral tablet, Oral, Daily atorvastatin 80 mg Tab, 80 mg= 1 tab(s), Oral, Daily clopidogrel 75 mg Tab, 75 mg= 1 tab(s), Oral, Daily isosorbide mononitrate 60 mg ER Tab, 60 mg= 1 tab(s), Oral, qAM lisinopril 5 mg Tab, Oral, Daily magnesium oxide 400 mg Tab, 400 mg= 1 tab(s), Oral, TID Metoprolol tartrate 50 mg Tab, Oral, BID mycophenolic acid 180 mg oral enteric coated tablet, Oral, BID Nexium 40 mg Cap-EC, 40 mg= 1 cap(s), Oral, Daily ranolazine 500 mg oral ER Tab, 500 mg= 1 tab(s), Oral, BID tacrolimus, 1 mg tacrolimus 0.5 mg oral capsule, 1 mg= 2 cap(s) Allergies No Known Allergies Social History Alcohol - Low Risk, 01/17/2022 Never., 02/28/2024 Substance Abuse - Denies Substance Abuse, 01/17/2022 Never., 02/28/2024 Tobacco - Denies Tobacco Use, 01/17/2022 Former smoker, quit more than 30 days ago Tobacco Use:. Household tobacco concerns: No. Yes, 03/04/2024 Family History Alzheimer's disease: Mother. Immunizations Vaccine Date Status Comments influenza virus vaccine, inactivated - Not Given Patient Refuses influenza virus vaccine, inactivated 01/13/2023 Recorded influenza virus vaccine, (more content not included)... Normal [facility] Comment on above: Result Comment: Elec tronically Signed By: Reji BROWER MD\.br\Date and Time Signed: 03/04/24 15:03 EST\.br\Electronically Co-Signed By: Esther Pan\.br\Date and Time Co-Signed: 03/04/24 15:02 EST Documentationon 02-02-2024 Documentation [id number] Waldemar Duke 1960 M Date Provider Department Center 02/02/2024 PB AHUMADA None Family History Problem Relation Age of Onset Alzheimer's disease Mother Coronary artery disease Father Family Status - Relation Status Age at Mother Father Normal [facility] ALL CBC WITH AUTO DIFFon BASOPHILS ABSOLUTE AUTO 0 [facility] Basophils/100 WBC (Bld) 0.5 % 0.2 - 2.0 % [facility] Eosinophils/100 WBC (Bld) 1 % 0.9 - 7.0 % [facility] Erythrocyte distribution width (RBC) [Ratio] 13.6 % 11.0 - 15.0 % [facility] Hematocrit (Bld) [Volume fraction] 50.4 % 42.0 - 54.0 % [facility] Hemoglobin (Bld) [Mass/Vol] 17 g/dL 14.0 - 18.0 g/dL [facility] IMMATURE GRANULOCYTES ABS AUTO 0.03 [facility] Immature granulocytes/100 WBC (Bld) 0.4 % 0.0 - 0.5 % [facility] Interpretation and review of laboratory results Abnormal [facility] LYMPHOCYTES ABSOLUTE AUTO 0.9 Low [facility] Lymphocytes/100 WBC (Bld) 11.7 % Low 20.5 - 60.0 % [facility] MCH (RBC) [Entitic mass] 30.5 pg 25.9 - 34.0 pg [facility] MCHC (RBC) [Mass/Vol] 33.7 g/dL 29.9 - 35.2 g/dL [facility] MCV (RBC) [Entitic vol] 90.3 fL 80.0 - 94.0 fL [facility] MONOCYTES ABSOLUTE AUTO 0.8 [facility] Monocytes/100 WBC (Bld) 10.6 % 1.7 - 12.0 % [facility] NEUTROPHILS ABSOLUTE AUTO 5.[address] [facility] Neutrophils/100 WBC (Bld) 75.8 % High 43.0 - 75.0 % [facility] Platelet mean volume (Bld) [Entitic vol] 10.3 fL 9.5 - 13.5 fL [facility] TBH EO # 0.1 [facility] PLT 189 [facility] RBC 5.58 [facility] WBC 7.[address] [facility] 36on 01-29-2024 36 Transplant Pharmacis t - [...] sign off at this time. Guero Lee, PharmD, BCPS Solid Organ Transplant Clinical Pharmacist Normal [facility] Telephoneon 01-29-2024 Telephone [id number] Waldemar Duke 1960 Date Provider Department Center 01/29/2024 3915GUERO ARMIJO TXP None Family History Problem Relation Age of Onset Alzheimer's disease Mother Coronary artery disease Father Family Status - Relation Status Age at Mother Father Reason for Visit and Comments: Transplant Pharmacist - Drug Information [[id number]] Normal [facility] MHPT PSA, DIAGNOSTICon 01-24 PROSTATE SPECIFIC ANTIGEN DX 0.91 ng/mL NINF - 4.00 ng/mL [facility] Result Letter Officeon 01-22 Result Letter Office Result Letter Office January 23, 2024 [place] [address] : 1960 Below is a summary of [...] letter prior to your next due date. [facility] [phone] Normal [facility] Surgical Pathology Reporton 01-17-2024 Surgical Pathology Report [facility] [address] [place] [address]- Surgical Pathology Report Collected Date/Time: 01/11/2024 09:34 [...] is entirely submitted in one cassette. (DC) DC:[facility] Microscopic Description Microscopic examination performed unless gross only specified. The use of one or more reagents in the above tests is regulated as an analyte specific reagent (ASR). The test or tests are ordered following initial H&E microscopic examination. The performance characteristics were determined by the Laboratory of [facility]. They have not been cleared or approved by the US Food and Drug Administration. The FDA has determined that such clearance or approval is not necessary. These tests are used for clinical purposes. They should not be regarded as investigational or for research. Appropriate positive and negative controls are performed and are acceptable. Normal [facility] Comment on above: Performed By: #### [id number] #### [facility] Laboratory [address] [place] [address] Main OR Intraoperative Recor don 01-12-2024 Main OR Intraoperative Record Main OR Intraoperative Record IntraOp Document Type FT Summary Primary Physician: Gladys FRANK, Xochilt Butler Finalized Date/Time: 01/12/24 11:15:33 Pt. Name: VISHAL DUKE /Sex: 1960 Male Med Rec #: [id number] Physician: Gladys FRANK, Xochilt Butler Financial #: [id number] Pt. Type: O Room/Bed: / Admit/Disch: 01/11/24 08:13:18 - 01/11/24 23:59:59 Institution: Case Times FT Entry 1 Patient Times In Room 01/11/24 09:24:00 Out Room 01/11/24 10:08:00 Procedure Times Start 01/11/24 09:30:00 Stop 01/11/24 10:04:00 Anesthesia Times Start 01/11/24 09:24:00 Stop 01/11/24 10:08:00 Time at [facility] 01/11/24 09:47:00 Last Modified By: Nicky GODWIN, Karlene 01/11/24 10:09:03 General Comments: 935-EGD completed/AW RN 39-Colonoscopy started/AW RN 01/12/24 Chart opened for charge review per Dmitriy Lee RN. [place] Case Attendance FT Entry 1 Entry 2 Entry 3 Case Attendee Nick DNP, BOOK SEWING MACHINE OPERATOR, Queen Nicky GODWIN, Monie Guzman Role Performed BOOK SEWING MACHINE OPERATOR Senior Environmental Practice Leader - Primary Scrub - Primary Time In 01/11/24 09:37:00 01/11/24 09:24:00 01/11/24 09:24:00 Time Out 01/11/24 10:08:00 01/11/24 10:08:00 01/11/24 10:08:00 Procedure EGD AND COLONOSCOPY(.) EGD AND COLONOSCOPY(.) EGD AND COLONOSCOPY(.) Comments Dr. Orozco supervising Last Modified By: Nicky RN, Karlene Saunders RN, Karlene Saunders RN, Karlene 01/11/24 10:09:04 01/11/24 10:09:04 01/11/24 10:09:04 Entry 4 Entry 5 Entry 6 Case Attendee Nikunj HENRY, Hanh Graham MD, Xochilt Infante CRNA, Belinda Butler Role Performed Staff - Other Surgeon - Primary BOOK SEWING MACHINE OPERATOR Time In 01/11/24 09:34:00 01/11/24 09:24:00 01/11/24 09:24:00 Time Out 01/11/24 10:08:00 01/11/24 10:08:00 01/11/24 09:38:00 Procedure EGD AND COLONOSCOPY(.) EGD AND COLONOSCOPY(.) EGD AND COLONOSCOPY(.) Comments help in room Dr. Orozco supervising Last Modified By: Karlene Saunders RN, RN, Karlene Seth RN 01/11/24 10:09:04 01/11/24 10:09:04 01/11/24 10:09:04 Perioperative [...] Out Karlene Saunders RN, Given Participants Monie Mehta, Gladys FRANK, Arelis Saez CRNA, Brandy J. Time Out [...] to site. Primary Procedure Yes Primary Surgeon Sarmini Xochilt FRANK Start 01/11/24 09:30:00 Stop 01/11/24 10:04:00 Anesthesia [...] colon polyp, rectal polyp Last Modified By: Karlene Saunders RN 01/11/24 10:03:09 Post-Care Text: The patient is free from signs and symptoms of infection Skin Assessment (Pre Procedure) FT Pre-Care Text: Implements protective measures to prevent skin/ tissue injury due to thermal or mechanical sources Evaluates for signs and symptoms of physic (more content not included)... Normal [facility] Discharge Instructionson Discharge Instructions Discharge Instructions VISHAL [...] FRANK, Reji Farrell Where: [facility] [address] [address]- New Follow Up Appointments after Discharge Follow Up with Gladys FRANK, JIN Saez, [facility] When: Comments: Call for any problems. Office [...] the a (more content not included)... Normal [facility] Comment on above: Result Comment: Elec tronically Signed By: Maria Victoria Zaman I\.br\Date and Time Signed: 01/11/24 10:21 EDT Inpatient Patient Summaryon 01-11-2024 Inpatient Patient Summary Inpatient Patient Summary [address] [address] [facility] Clinical Discharge Instructions PERSON INFORMATION Name: VISHAL DUKE PHYSICIANS Admitting Physician: Xochilt Graham MD Attending Physician: Xochilt Graham MD PCP: JANET FRANK, ROSA M Palomino Discharge Diagnosis: Chronic GERD; Colon polyps Comment: PATIENT EDUCATION INFORMATION Instructions: Medication Leaflets: Follow up: Type Location Start Finish State URO Office Visit [facility] [place] 01/29/2024 10:30 AM 01/29/2024 10:45 AM Confirmed [...] a day. tacrolimus 1 Milligram. Comment: Nida [facility] Main OR PACU II Recordon Main OR PACU II Record Main OR PACU II Record PACU Phase II Document Type FT Summary Primary Physician: Xochilt Graham MD Finalized Date/Time: 01/11/24 10:56:37 Pt. Name: VISHAL DUKE/Sex: 1960 Male Med Rec #: [id number] Physician: Xochilt Graham MD Financial #: [id number] Pt. Type: O Room/Bed: / Admit/Disch: 09/26/24 08:13:18 - Institution: Case Times PACU II [...] By: Maria Victoria Zaman I 01/11/24 10:56 [facility] Main OR Preoperative Recordo n 01-11-2024 Main OR Preoperative Record Main OR Preoperative Record Holding Area Document Type FT Summary Primary Physician: Xochilt Graham MD Finalized Date/Time: 01/11/24 09:12:50 Pt. Name: VISHAL DUKE /Sex: 1960 Male Med Rec #: [id number] Physician: Xochilt Graham MD Financial #: [id number] Pt. Type: O Room/Bed: / Admit/Disch: 01/11/24 [...] Pt completed prep 0400 and remained NPO since/ABENA,RN Finalized By: Stacey Hamilton RN Document Signatures Signed By: Stacey Hamilton RN 01/11/24 09:12 Normal [facility] Outpatient Surgery Discharge Instructionon 01-11-2024 Outpatient Surgery Discharge Instruction Outpatient Surgery Discharge Instruction [place] [id number] Patient Discharge Instructions PERSON INFORMATION Name: VISHAL DUKE Date of : 1960 Current Date: 01/11/2024 09:28:53 PHYSICIANS Admitting Physician: Gladys FRANK, Xochilt Butler Discharge Diagnosis: Chronic GERD; Colon polyps VISHAL [...] was present when discharge instructions were given __ Patient Signature Date Clinican/Nurse Signature Date Follow up: Type Location Start Finish State [facility] Office Visit [facility] [place] 01/29/2024 10:30 AM 01/29/2024 10:45 AM Confirmed Pharmacy Information: You may receive a survey from [employer] asking you to rate your care experience. Your feedback is important and will help us understand what we do well and how we can improve the quality of care we provide to you, your loved ones and our community. It?s an honor to serve you. Thank you for choosing [facility] HERE ARE THE MEDICATION CHANGES THAT OCCURRED [...] Milligram. PATIENT EDUCATION INFORMATION Instructions: Medication Leaflets: Normal [facility] ALL CBC WITH AUTO DIFFon BASOPHILS ABSOLUTE AUTO 0.0 [facility] Basophils/100 WBC (Bld) 0.6 % 0.2 - 2.0 % [facility] Eosinophils/100 WBC (Bld) 1.6 % 0.9 - 7.0 % [facility] Erythrocyte distribution width (RBC) [Ratio] 13.3 % 11.0 - 15.0 % [facility] Hematocrit (Bld) [Volume fraction] 48.4 % 42.0 - 54.0 % [facility] Hemoglobin (Bld) [Mass/Vol] 15.7 g/dL 14.0 - 18.0 g/dL [facility] IMMATURE GRANULOCYTES ABS AUTO 0.03 [facility] Immature granulocytes/100 WBC (Bld) 0.5 % 0.0 - 0.5 % [facility] Interpretation and review of laboratory results Abnormal [facility] LYMPHOCYTES ABSOLUTE AUTO 1.0 Low [facility] Lymphocytes/100 WBC (Bld) 15.2 % Low 20.5 - 60.0 % [facility] MCH (RBC) [Entitic mass] 30.3 pg 25.9 - 34.0 pg [facility] MCHC (RBC) [Mass/Vol] 32.4 g/dL 29.9 - 35.2 g/dL [facility] MCV (RBC) [Entitic vol] 93.4 fL 80.0 - 94.0 fL [facility] MONOCYTES ABSOLUTE AUTO 0.6 [facility] Monocytes/100 WBC (Bld) 9.7 % 1.7 - 12.0 % [facility] NEUTROPHILS ABSOLUTE AUTO 4.5 [facility] Neutrophils/100 WBC (Bld) 72.4 % 43.0 - 75.0 % [facility] Platelet mean volume (Bld) [Entitic vol] 10.8 fL 9.5 - 13.5 fL [facility] EO # 0.1 [facility] PLT 217 [facility] RBC 5.[address] [facility] WBC 6.3 [facility] Ambulatory Visit Summaryon 0 12-25-2023 Ambulatory Visit Summary Ambulatory Visit Summary VISHAL DUKE :1960 Visit Date:02/02/2023 Ambulatory Visit Instructions Your Care Team Attending Physician - Gladys FRANK, Xochilt Butler Primary Care Physician - ROSA M GONZALES MD This Is Your Medications List aspirin (aspirin [...] mg Tab) sucralfate (sucralfate 1 g Tab) sulfamethoxazole-trimethopri m (Bactrim) tacrolimus valganciclovir (valganciclovir 450 mg oral tablet) Procedures Performed Kidney transplant (01/01/2018), Bilateral vasectomy, Colonoscopy, Placement of stent in cardiac conduit, Triple coronary bypass. What to do next Scheduled Follow-Up Appointments 2023 10:00 AM EDT With: Where: [facility] Surgical Services Monday 10:30 AM EDT With: LEONARDA FRANK, Reji Farrell Where: [facility] [address] [address]- Medications What How Much When Why Instructions [...] By Mouth 3 times a day Unchanged sulfamethoxazole-trimethopri m (Bactrim) By Mouth Every 12 hours Unchanged [...] choosing us for your care. Normal [facility] Gastroenterology Office/Clin ic Noteon 12-25-2023 Gastroenterology Office/Clinic Note Gastroenterology Office/Clinic Note Chief Complaint Colonoscopy HPI Staff Patient is a(n) year old male who presents today for a 10 year colonoscopy recall. Denies Fhx colon cancer. Denies previous EGD. Hx hyperplastic polyps. Denies n/v/c/d, abd pain, bloody or mucus stools. Blood thinners? Plavix Dr Chester [facility] prescribes Plavix GLP-1 agonists? no Colonoscopy 02/04/2013 w/Dr. Cerrato: DIAGNOSIS: Two sigmoid polyps as described above, status post snare polypectomy. Pathology: Sigmoid colon, biopsy: Hyperplastic polyp History of Present Illness Doing well, occasional chest burning overnight resolves with nitro, he checked with her central melt specialist, does not seem to be cardiac per [...] bedtime), # 90 tab(s), Refills(s) 0, Pharmacy: [facility], 177.8, cm, 12/25/23 9:23:00 EDT, Height/Length Dosing, 94.3, kg, 12/25/23 9:23:00 EDT, Weight Dosing Colonoscopy (Hospital Procedure) 2. History of colon polyps (Z86.010: Personal history of colonic polyps) Ordered: famotidine, 40 mg = 1 tab(s), Oral, Once a day (at bedtime), # 90 tab(s), Refills(s) 0, Pharmacy: [facility], 177.8, cm, 12/25/23 9:23:00 EDT, Height/Length [...] bedtime), # 90 tab(s), Refills(s) 0, Pharmacy: [facility], 177.8, cm, 12/25/23 9:23:00 EDT, Height/Length [...] bedtime), # 90 tab(s), Refills(s) 0, Pharmacy: [facility], 177.8, cm, 12/25/23 9:23:00 EDT, Height/Length [...] bedtime), # 90 tab(s), Refills(s) 0, Pharmacy: [facility], 177.8, cm, 12/25/23 9:23:00 EDT, Height/Length [...] Mother. Immunizati (more content not included)... Normal [facility] Comment on above: Result Comment: Elec tronically Signed By: Gladys FRANK, Xochilt Butler\.br\Date and Time Signed: 12/25/23 09:51 EDT Office Visiton 11-20-2023 Follow-up visit [id number] Waldemar Duke 1960 M Date Provider Department Center 11/20/2023 [facility] [place] MICHELLE Doran [facility] Family History Problem Relation Age of Onset Alzheimer's disease Mother Coronary artery disease Father Family Status - Relation Status Age at Mother Father Level of Service:43799 OR OFFICE/OUTPATIENT ESTABLISHED MOD MDM 30 MIN Normal [facility] Office Visiton 06-05-2023 Follow-up visit [id number] Waldemar Duke 1960 M Date Provider Department Center 06/05/[address] [facility] [facility] [place] Family History Problem Relation Age of Onset Alzheimer's disease Mother Coronary artery disease Father Family Status - Relation Status Age at Mother Father Level of Service:94255 OR OFFICE/OUTPATIENT ESTABLISHED LOW MDM 20 MIN Normal [facility] TACROLIMUS (FK506), BLOODon 05-31-2023 TACROLIMUS (FK506), BLOOD 5.5 ng/mL 2.0 - 20.0 ng/mL [facility] Comment on above: This test was develo ped and its performance characteristics determined by [facility]. It has not been cleared or approved by the Food and Drug Administration. Trough (immediately following transplant) 15.0 Trough (steady state, 2 weeks or more after transplant): 3.0 - 8.0 Performed by LC-MS/MS technology. Performed at: [address] [id number] Mechanical Detailer: Evan Orozco MD, Phone: [phone] [facility] BILIRUBIN, DIRECTon 05-18-19 Magnesium [Mass/Vol] 0.2 mg/dL Normal 0-0.2 [facility] Comment on above: Performed By: #### L [id number] #### [facility] ([facility]) [address] [place] [address] CBC WITH AUTO DIFFERENTIALon 05-18-2023 Basophils (Bld) [#/Vol] 0.05 10*3/uL Normal 0.00-0.20 [facility] Comment on above: Performed By: #### L [id number] #### [facility] ([facility]) [address] [place] [address] Basophils/100 WBC (Bld) 0.6 % Normal 0.0-1.0 [facility] Comment on above: Performed By: #### L [id number] #### [facility] ([facility]) [address] [place] [address] Eosinophils (Bld) [#/Vol] 0.12 10*3/uL Normal 0.00-0.50 [facility] Comment on above: Performed By: #### L [id number] #### [facility] ([facility]) [address] [place] [address] Eosinophils/100 WBC (Bld) 1.4 % Normal 0.0-6.0 [facility] Comment on above: Performed By: #### L [id number] #### [facility] ([facility]) [address] [place] [address] Erythrocyte distribution width (RBC) [Ratio] 14.9 % Normal 11.5-15.0 [facility] Comment on above: Performed By: #### L [id number] #### [facility] ([facility]) [address] [place] [address] ERYTHROCYTE MEAN CORPUSCULAR HEMOGLOBIN CONCENTRATION (G/DL) BY AUTOMATED 33.4 g/dL Normal 32.0-35.0 [facility] Comment on above: Performed By: #### L [id number] #### [facility] ([facility]) [address] [place] [address] Hematocrit (Bld) [Volume fraction] 48.5 % Normal 39.0-55.0 [facility] Comment on above: Performed By: #### L [id number] #### [facility] (BE[facility]) [address] [place] [address] Hemoglobin (Bld) [Mass/Vol] 16.2 g/dL Normal 13.0-17.0 [facility] Comment on above: Performed By: #### L [id number] #### [facility] ([facility]) [address] [place] [address] Immature granulocytes (Bld) [#/Vol] 0.07 10*3/uL Normal 0.00-0.20 [facility] Comment on above: Performed By: #### L [id number] #### [facility] ([facility]) [address] [place] [address] Immature granulocytes/100 WBC (Bld) 0.8 % Normal 0.0-1.0 [facility] Comment on above: Performed By: #### L [id number] #### [facility] ([facility]) [address] [place] [address] Lymphocytes (Bld) [#/Vol] 1.06 10*3/uL Low 1.20-4.00 [facility] Comment on above: Performed By: #### L [id number] #### [facility] ([facility]) [address] [place] [address] Lymphocytes/100 WBC (Bld) 12.3 % Low 20.0-45.0 [facility] Comment on above: Performed By: #### L [id number] #### [facility] ([facility] [address] [place] [address] MCH (RBC) [Entitic mass] 29.9 pg Normal 27.0-33.0 [facility] Comment on above: Performed By: #### L [id number] #### [facility] [address] [address] MCV (RBC) [Entitic vol] 89.6 fL Normal 82.0-98.0 [facility] Comment on above: Performed By: #### L [id number] #### [facility] ([facility]) [address] [place] [address] Monocytes (Bld) [#/Vol] 0.68 10*3/uL Normal 0.10-1.00 [facility] Comment on above: Performed By: #### L [id number] #### [facility] ([facility]) [address] [place] [address] Monocytes/100 WBC (Bld) 7.9 % Normal 5.0-12.0 [facility] Comment on above: Performed By: #### L [id number] #### [facility] ([facility]) [address] [place] [address] Neutrophils (Bld) [#/Vol] 6.61 10*3/uL Normal 1.60-7.60 [facility] Comment on above: Performed By: #### L [id number] #### [facility] ([facility]) [address] [place] [address] Neutrophils/100 WBC (Bld) 77.0 % High 40.0-72.0 [facility] Comment on above: Performed By: #### L [id number] #### [facility] ([facility]) [address] [place] [address] NRBC (PER 100 WBCS) BY AUTOMATED COUNT 0.0 % Normal 0 [facility] Comment on above: Performed By: #### L [id number] #### [facility] ([facility] [address] [place] [address] PLATELETS (10*3/UL) IN BLOOD AUTOMATED COUNT 254 10*3/uL Normal 150-400 [facility] Comment on above: Performed By: #### L [id number] #### [facility] ([facility]) [address] [place] [address] RBC (Bld) [#/Vol] 5.41 10*6/uL Normal 4.20-5.70 [facility] Comment on above: Performed By: #### L [id number] #### [facility] ([facility]) [address] [place] [address] WBC (Bld) [#/Vol] 8.59 10*3/uL Normal 4.00-10.60 [facility] Comment on above: Performed By: #### L [id number] #### [facility] ([facility]) [address] [place] [address] COMPREHENSIVE METABOLIC PANE Nitin 05-18-2023 Albumin [Mass/Vol] 4.5 g/dL Normal 3.5-5.7 [facility] Comment on above: Performed By: #### L [id number] #### [facility] ([facility]) [address] [place] [address] ALP [Catalytic activity/Vol] 78 U/L Normal 34-104 [facility] Comment on above: Performed By: #### L [id number] #### [facility] ([facility]) [address] [place] [address] ALT [Catalytic activity/Vol] 22 U/L Normal 7-52 [facility] Comment on above: Performed By: #### L [id number] #### [facility] ([facility]) [address] [place] [address] Anion gap [Moles/Vol] 12 mmol/L Normal 7-20 [facility] Comment on above: Performed By: #### L [id number] #### [facility] (BEAKER) [address] [place] [address] AST [Catalytic activity/Vol] 17 U/L Normal 13-39 [facility] Comment on above: Performed By: #### L [id number] #### [facility] (BEAKER) [address] [place] [address] Bilirubin [Mass/Vol] 0.8 mg/dL Normal 0.3-1.0 [facility] Comment on above: Performed By: #### L [id number] #### [facility] (BEAKER) [address] [place] [address] Calcium [Mass/Vol] 9.4 mg/dL Normal 8.6-10.3 [facility] Comment on above: Performed By: #### L [id number] #### [facility] ([facility]) [address] [place] [address] Chloride [Moles/Vol] 101 mmol/L Normal 98-107 [facility] Comment on above: Performed By: #### L [id number] #### [facility] (BEAKER) [address] [place] [address] CO2 [Moles/Vol] 26 mmol/L Normal 21-31 [facility] Comment on above: Performed By: #### L [id number] #### [facility] ([facility]) [address] [place] [address] Creatinine [Mass/Vol] 1.24 mg/dL Normal 0.70-1.30 [facility] Comment on above: Performed By: #### L [id number] #### [facility] ([facility]) [address] [place] [address] GLOMERULAR FILTRATION RATE ML/MIN/1.73 SQ M.PREDICTED 65.7 mL/min/1.73m*2 Normal >60.0 [facility] Comment on above: Result Comment: The [facility]???s estimated glomerular filtration rate (eGFR) will [...] individuals. Performed By: #### L [id number] #### [facility] (BEAKER) [address] [place] [address] Glucose [Mass/Vol] 130 mg/dL High 70-100 [facility] Comment on above: Performed By: #### L [id number] #### [facility] (BEAKER) [address] [place] [address] Potassium [Moles/Vol] 4.0 mmol/L Normal 3.5-5.1 [facility] Comment on above: Performed By: #### L [id number] #### [facility] ([facility]) [address] [place] [address] Protein [Mass/Vol] 6.8 g/dL Normal 6.0-8.3 [facility] Comment on above: Performed By: #### L [id number] #### [facility] ([facility]) [address] [place] [address] Sodium [Moles/Vol] 135 mmol/L Low 136-145 [facility] Comment on above: Performed By: #### L [id number] #### [facility] ([facility]) [address] [place] [address] Urea nitrogen [Mass/Vol] 24 mg/dL Normal 7-25 [facility] Comment on above: Performed By: #### L [id number] #### [facility] ([facility]) [address] [place] [address] UREA NITROGEN/CREATININ E (MASS RATIO) IN SER/PLAS 19.4 Normal [facility] Comment on above: Performed By: #### L [id number] #### [facility] ([facility]) [address] [place] [address] Follow-Upon 05-18-2023 Follow-Up [id number] Waldemar Duke 1960 M Date Provider Department Center 05/18/2023 263-LOGAN MALDONADOI TXP None Family History Problem Relation Age of Onset Alzheimer's disease Mother Coronary artery disease Father Family Status - Relation Status Age at Mother Father Level of Service:61869 OR OFFICE/OUTPATIENT ESTABLISHED LOW MDM 20 MIN Reason for Visit and Comments: Kidney Follow-up [] - Patient has no major concerns today Normal [facility] HEMOGLOBIN A1Con 05-18-2023 Glucose [Mass/Vol] 137 mg/dL Normal [facility] Comment on above: Performed By: #### L [id number] #### [facility] ([facility]) [address] [place] [address] HbA1c (Bld) [Mass fraction] 6.4 % High 4.0-6.0 [facility] Comment on above: Performed By: #### L [id number] #### [facility] ([facility]) [address] [place] [address] LIPID PANELon 05-18-2023 CHOL/HDL 3.2 mg/dL Normal [facility] Comment on above: Performed By: #### L [id number] #### [facility] ([facility]) [address] [place] [address] Cholesterol [Mass/Vol] 120 mg/dL Normal 120-200 [facility] Comment on above: Performed By: #### L [id number] #### [facility] ([facility]) [address] [place] [address] Magnesium [Mass/Vol] 209 mg/dL High 40-149 [facility] Comment on above: Result Comment: TRIG LYCERIDE REFERENCE RANGE: 20 YEARS AND OLDER CARDIOVASCULAR RISK LESS THAN 150 mg/dL LOW RISK 150 TO 199 mg/dL BORDERLINE RISK 200 mg/dL AND GREATER HIGH RISK Performed By: #### L [id number] #### [facility] ([facility]) [address] [place] [address] Magnesium [Mass/Vol] 40 mg/dL Normal 0-160 [facility] Comment on above: Performed By: #### L [id number] #### [facility] ([facility]) [address] [place] [address] Magnesium [Mass/Vol] 38 mg/dL Normal 23-92 [facility] Comment on above: Performed By: #### L [id number] #### [facility] ([facility]) [address] [place] [address] NON HDL CHOL. (LDL+VLDL) 82 Normal [facility] Comment on above: Performed By: #### L [id number] #### [facility] [address] [place] [address] TOTAL VLDL-C 42 mg/dL High 0-40 [facility] Comment on above: Performed By: #### L [id number] #### [facility] ([facility]) [address] [place] [address] Labon 05-18-2023 Lab [id number] Waldemar Duke 1960 M Date Provider Department Center 05/18/2023 [id number] DRAW STATION KXT Draw [facility] Family History Problem Relation Age of Onset Alzheimer's disease Mother Coronary artery disease Father Family Status - Relation Status Age at Mother Father Normal [facility] MAGNESIUMon 05-18-2023 Magnesium [Mass/Vol] 1.6 mg/dL Low 1.9-2.7 [facility] Comment on above: Performed By: #### L [id number] #### [facility] ([facility]) [address] [place] [address] Orders Onlyon 05-18-2023 Orders Only [id number] Waldemar Duke D 1960 M Date Provider Department Center 05/18/2023 Sailaja-FARRUKH BLANCAS TXP None Family History Problem Relation Age of Onset Alzheimer's disease Mother Coronary artery disease Father Family Status - Relation Status Age at Mother Father Normal [facility] PHOSPHORUSon 05-18-2023 Magnesium [Mass/Vol] 3.5 mg/dL Normal 2.5-5.0 [facility] Comment on above: Performed By: #### L [id number] #### [facility] ([facility]) [address] [place] [address] TACROLIMUS LEVELon Tacrolimus (Bld) [Mass/Vol] 11.6 ng/mL Normal 5.0-20.0 [facility] Comment on above: Result Comment: The [employer] Tacrolimus assay is a delayed one-step immunoassay for the quantitative determination of tacrolimus in human whole blood using the chemiluminescent microparticle immunoassay (CMIA) technology with flexible assay protocols, referred to as Chemiflex. Performed By: #### L [id number] #### [facility] ([facility]) [address] [place] [address] TESTOSTERONE, FREE AND TOTAL , AND SHBGon 05-18-2023 SEX HORMONE BINDING GLOBULIN (NMOL/L) IN SER/PLAS 28 nmol/L Normal 11-80 [facility] Comment on above: Performed By: #### L [id number] #### [facility] [address] [place] [address] TESTOSTERONE (NG/DL) IN SER/PLAS 319 ng/dL Normal 220-1000 [facility] Comment on above: Performed By: #### L [id number] #### [facility] [address] [place] [address] TESTOSTERONE FREE (NG/ML) IN SER/PLAS 69.3 pg/mL Normal 47-244 [facility] Comment on above: Result Comment: The concentration of free testosterone is derived from a mathematical expression based on the constant for the binding of testosterone to albumin and/or sex hormone binding globulin. Test Performed by [facility] [place] [address] - Released 05/18/2023 15:33 Performed By: #### L [id number] #### [facility] [address] [place] [address] URIC ACIDon 05-18-2023 Magnesium [Mass/Vol] 5.1 mg/dL Normal 4.4-7.6 [facility] Comment on above: Performed By: #### L [id number] #### [facility] ([facility]) [address] [place] [address] BILIRUBIN, DIRECTon 03-28-20 23 Magnesium [Mass/Vol] 0.1 mg/dL Normal 0-0.2 [facility] Comment on above: Performed By: #### L [id number] #### [facility] ([facility]) [address] [place] [address] CBC WITH AUTO DIFFERENTIALon 03-28-2023 Basophils (Bld) [#/Vol] 0.08 10*3/uL Normal 0.00-0.20 [facility] Comment on above: Performed By: #### L [id number] #### [facility] ([facility]) [address] [place] [address] Basophils/100 WBC (Bld) 0.8 % Normal 0.0-1.0 [facility] Comment on above: Performed By: #### L [id number] #### [facility] (BEAKER) [address] [place] [address] Eosinophils (Bld) [#/Vol] 0.17 10*3/uL Normal 0.00-0.50 [facility] Comment on above: Performed By: #### L [id number] #### [facility] (BEAKER) [address] [place] [address] Eosinophils/100 WBC (Bld) 1.7 % Normal 0.0-6.0 [facility] Comment on above: Performed By: #### L [id number] #### [facility] ([facility]) [address] [place] [address] Erythrocyte distribution width (RBC) [Ratio] 14.8 % Normal 11.5-15.0 [facility] Comment on above: Performed By: #### L [id number] #### [facility] ([facility]) [address] [place] [address] ERYTHROCYTE MEAN CORPUSCULAR HEMOGLOBIN CONCENTRATION (G/DL) BY AUTOMATED 32.9 g/dL Normal 32.0-35.0 [facility] Comment on above: Performed By: #### L [id number] #### [facility] (BEAKER) [address] [place] [address] Hematocrit (Bld) [Volume fraction] 49.3 % Normal 39.0-55.0 [facility] Comment on above: Performed By: #### L [id number] #### [facility] (BEAKER) [address] [place] [address] Hemoglobin (Bld) [Mass/Vol] 16.2 g/dL Normal 13.0-17.0 [facility] Comment on above: Performed By: #### L [id number] #### [facility] (BEAKER) [address] [place] [address] Immature granulocytes (Bld) [#/Vol] 0.07 10*3/uL Normal 0.00-0.20 [facility] Comment on above: Performed By: #### L [id number] #### [facility] ([facility] [address] [place] [address] Immature granulocytes/100 WBC (Bld) 0.7 % Normal 0.0-1.0 [facility] Comment on above: Performed By: #### L [id number] #### [facility] ([facility]) [address] [place] [address] Lymphocytes (Bld) [#/Vol] 1.26 10*3/uL Normal 1.20-4.00 [facility] Comment on above: Performed By: #### L [id number] #### [facility] ([facility]) [address] [place] [address] Lymphocytes/100 WBC (Bld) 12.4 % Low 20.0-45.0 [facility] Comment on above: Performed By: #### L [id number] #### [facility] ([facility]) [address] [place] [address] MCH (RBC) [Entitic mass] 29.8 pg Normal 27.0-33.0 [facility] Comment on above: Performed By: #### L [id number] #### [facility] ([facility]) [address] [place] [address] MCV (RBC) [Entitic vol] 90.8 fL Normal 82.0-98.0 [facility] Comment on above: Performed By: #### L [id number] #### [facility] ([facility] [address] [place] [address] Monocytes (Bld) [#/Vol] 0.94 10*3/uL Normal 0.10-1.00 [facility] Comment on above: Performed By: #### L [id number] #### [facility] (BEAKER) [address] [address] Monocytes/100 WBC (Bld) 9.2 % Normal 5.0-12.0 [facility] Comment on above: Performed By: #### L [id number] #### [facility] ([facility]) [address] [place] [address] Neutrophils (Bld) [#/Vol] 7.66 10*3/uL High 1.60-7.60 [facility] Comment on above: Performed By: #### L [id number] #### [facility] ([facility]) [address] [place] [address] Neutrophils/100 WBC (Bld) 75.2 % High 40.0-72.0 [facility] Comment on above: Performed By: #### L [id number] #### [facility] ([facility]) [address] [place] [address] NRBC (PER 100 WBCS) BY AUTOMATED COUNT 0.0 % Normal 0 [facility] Comment on above: Performed By: #### L [id number] #### [facility] ([facility]) [address] [place] [address] PLATELETS (10*3/UL) IN BLOOD AUTOMATED COUNT 276 10*3/uL Normal 150-400 [facility] Comment on above: Performed By: #### L [id number] #### [facility] ([facility]) [address] [place] [address] RBC (Bld) [#/Vol] 5.43 10*6/uL Normal 4.20-5.70 [facility] Comment on above: Performed By: #### L [id number] #### [facility] ([facility]) [address] [place] [address] WBC (Bld) [#/Vol] 10.18 10*3/uL Normal 4.00-10.60 [facility] Comment on above: Performed By: #### L [id number] #### [facility] ([facility] [address] [place] [address] COMPREHENSIVE METABOLIC PANE Nitin 03-28-2023 Albumin [Mass/Vol] 4.7 g/dL Normal 3.5-5.7 [facility] Comment on above: Performed By: #### L [id number] #### [facility] ([facility]) [address] [place] [address] ALP [Catalytic activity/Vol] 92 U/L Normal 34-104 [facility] Comment on above: Performed By: #### L [id number] #### [facility] ([facility]) [address] [place] [address] ALT [Catalytic activity/Vol] 19 U/L Normal 7-52 [facility] Comment on above: Performed By: #### L [id number] #### [facility] ([facility]) [address] [place] [address] Anion gap [Moles/Vol] 11 mmol/L Normal 7-20 [facility] Comment on above: Performed By: #### L [id number] #### [facility] ([facility]) [address] [place] [address] AST [Catalytic activity/Vol] 17 U/L Normal 13-39 [facility] Comment on above: Performed By: #### L [id number] #### [facility] ([facility]) [address] [place] [address] Bilirubin [Mass/Vol] 0.6 mg/dL Normal 0.3-1.0 [facility] Comment on above: Performed By: #### L [id number] #### [facility] ([facility]) [address] [place] [address] Calcium [Mass/Vol] 9.9 mg/dL Normal 8.6-10.3 [facility] Comment on above: Performed By: #### L [id number] #### [facility] ([facility]) [address] [place] [address] Chloride [Moles/Vol] 105 mmol/L Normal 98-107 [facility] Comment on above: Performed By: #### L [id number] #### [facility] ([facility]) [address] [place] [address] CO2 [Moles/Vol] 27 mmol/L Normal 21-31 [facility] Comment on above: Performed By: #### L [id number] #### [facility] ([facility]) [address] [place] [address] Creatinine [Mass/Vol] 1.21 mg/dL Normal 0.70-1.30 [facility] Comment on above: Performed By: #### L [id number] #### [facility] ([facility]) [address] [place] [address] GLOMERULAR FILTRATION RATE ML/MIN/1.73 SQ M.PREDICTED 67.7 mL/min/1.73m*2 Normal >60.0 [facility] Comment on above: Result Comment: [facility]???s estimated glomerular filtration rate (eGFR) will [...] individuals. Performed By: #### L [id number] #### [facility] ([facility]) [address] [place] [address] Glucose [Mass/Vol] 136 mg/dL High 70-100 [facility] Comment on above: Performed By: #### L [id number] #### [facility] ([facility]) [address] [place] [address] Potassium [Moles/Vol] 4.8 mmol/L Normal 3.5-5.1 [facility] Comment on above: Performed By: #### L [id number] #### [facility] ([facility]) [address] [place] [address] Protein [Mass/Vol] 6.9 g/dL Normal 6.0-8.3 [facility] Comment on above: Performed By: #### L [id number] #### [facility] [address] [place] [address] Sodium [Moles/Vol] 138 mmol/L Normal 136-145 [facility] Comment on above: Performed By: #### L [id number] #### [facility] ([facility]) [address] [place] [address] Urea nitrogen [Mass/Vol] 20 mg/dL Normal 7-25 [facility] Comment on above: Performed By: #### L [id number] #### [facility] ([facility]) [address] [place] [address] UREA NITROGEN/CREATININ E (MASS RATIO) IN SER/PLAS 16.5 Normal [facility] Comment on above: Performed By: #### L [id number] #### [facility] ([facility]) [address] [place] [address] Follow-Upon 03-28-2023 Follow-Up [id number] Waldemar Duke 1960 M Date Provider Department Center 03/28/2023 124-PETEY REDDING None Family History Problem Relation Age of Onset Alzheimer's disease Mother Coronary artery disease Father Family Status - Relation Status Age at Mother Father Level of Service:[id number] OR OFFICE/OUTPATIENT ESTABLISHED MOD MDM 30-39 MIN Reason for Visit and Comments: Kidney Follow-up [] - Patient have no concerns Normal [facility] LIPID PANELon 03-28-2023 CHOL/HDL 2.8 mg/dL Normal [facility] Comment on above: Performed By: #### L [id number] #### [facility] [address] [place] [address] Cholesterol [Mass/Vol] 125 mg/dL Normal 120-200 [facility] Comment on above: Performed By: #### L [id number] #### [facility] [address] [place] [address] Magnesium [Mass/Vol] 157 mg/dL High 40-149 [facility] Comment on above: Result Comment: TRIG LYCERIDE REFERENCE RANGE: 20 YEARS AND OLDER CARDIOVASCULAR RISK LESS THAN 150 mg/dL LOW RISK 150 TO 199 mg/dL BORDERLINE RISK 200 mg/dL AND GREATER HIGH RISK Performed By: #### L [id number] #### [facility] [address] [place] [address] Magnesium [Mass/Vol] 49 mg/dL Normal 0-160 [facility] Comment on above: Performed By: #### L [id number] #### [facility] ([facility]) [address] [place] [address] Magnesium [Mass/Vol] 45 mg/dL Normal 23-92 [facility] Comment on above: Performed By: #### L [id number] #### [facility] ([facility]) [address] [place] [address] NON HDL CHOL. (LDL+VLDL) 80 Normal [facility] Comment on above: Performed By: #### L [id number] #### [facility] ([facility]) [address] [place] [address] TOTAL VLDL-C 31 mg/dL Normal 0-40 [facility] Comment on above: Performed By: #### L [id number] #### [facility] ([facility]) [address] [place] [address] Labon 03-28-2023 Lab [id number] Waldemar Duke 1960 M Date Provider Department [place] 03/28/2023 [id number] DRAW STATION KXT Draw [facility] Family History Problem Relation Age of Onset Alzheimer's disease Mother Coronary artery disease Father Family Status - Relation Status Age at Mother Father Normal [facility] MAGNESIUMon 03-28-2023 Magnesium [Mass/Vol] 1.5 mg/dL Low 1.9-2.7 [facility] Comment on above: Performed By: #### L [id number] #### [facility] ([facility] [address] [place] [address] PHOSPHORUSon 03-28-2023 Magnesium [Mass/Vol] 3.6 mg/dL Normal 2.5-5.0 [facility] Comment on above: Performed By: #### L [id number] #### [facility] ([facility]) [address] [place] [address] TACROLIMUS LEVELon 3 Tacrolimus (Bld) [Mass/Vol] 9.6 ng/mL Normal 5.0-20.0 [facility] Comment on above: Result Comment: The [employer] Tacrolimus assay is a delayed one-step immunoassay for the quantitative determination of tacrolimus in human whole blood using the chemiluminescent microparticle immunoassay (CMIA) technology with flexible assay protocols, referred to as Chemiflex. Performed By: #### L [id number] #### [facility] ([facility]) [address] [place] [address] URIC ACIDon 03-28-2023 Magnesium [Mass/Vol] 5.2 mg/dL Normal 4.4-7.6 [facility] Comment on above: Performed By: #### L [id number] #### [facility] ([facility]) [address] [place] [address] FK506 (TACROLIMUS) WHOLE BLO ODon 08-21-2022 Tacrolimus (FK506), Blood 6.0 ng/mL Normal 2.0-20.0 [facility] Comment on above: Result Comment: Trou gh (immediately following transplant) 15.0 . Trough (steady state, 2 weeks or more after transplant): 3.0 - 8.0 . Performed by LC-MS/MS technology. Performed By: #### P HOS, URIC, MG, CMP, DBIL, LIPID #### [facility] [address] [place] [address] Dr. Karla Lagos BK VIRUS PCR QUANTon 023 BKV DNA QUANT PCR PLASMA Negative Normal Negative [facility] Comment on above: Result Comment: No B K DNA detected. . The linear range of the assay is 22 - 100,000,000 IU/mL. Performed By: #### P HOS, URIC, MG, CMP, DBIL, LIPID #### [facility] [address] [place] [address] Dr. Karla Lagos Log10 BKV DNA Plasma Normal [facility] Comment on above: Performed By: #### P HOS, URIC, MG, CMP, DBIL, LIPID #### [facility] [address] [address] [address] Karla Lagos BILIRUBIN CONJUGATED (DIRECT )on 08-18-2022 BILI, CONJUGATED 0.2 mg/dL Normal 0.0-0.2 [facility] Comment on above: Performed By: #### P HOS, URIC, MG, CMP, DBIL, LIPID #### [facility] [address] [place] [address] Dr. Karla Lagos CBC AUTO DIFFon 08-18-2022 BASO # 0.1 103/ul Normal 0.0-0.1 [facility] Comment on above: Performed By: #### P HOS, URIC, MG, CMP, DBIL, LIPID #### [facility] [address] [place] [address] Dr. Karla Lagos Basophils/100 WBC (Bld) 1.0 % Normal 0.2-2.0 [facility] Comment on above: Performed By: #### P HOS, URIC, MG, CMP, DBIL, LIPID #### [facility] [address] [place] [address] Dr. Karla Lagos EO # 0.1 103/ul Normal 0.0-0.7 [facility] Comment on above: Performed By: #### P HOS, URIC, MG, CMP, DBIL, LIPID #### [facility] [address] [place] [address] Dr. Karla Lagos Eosinophils/100 WBC (Bld) 1.3 % Normal 0.9-7.0 [facility] Comment on above: Performed By: #### P HOS, URIC, MG, CMP, DBIL, LIPID #### [facility] [address] [place] [address] Dr. Karla Lagos Erythrocyte distribution width (RBC) [Ratio] 14.0 % Normal 11.0-15.0 [facility] Comment on above: Performed By: #### P HOS, URIC, MG, CMP, DBIL, LIPID #### [facility] [address] [place] [address] Dr. Karla Lagos Hematocrit (Bld) [Volume fraction] 52.7 % Normal 42.0-54.0 [facility] Comment on above: Performed By: #### P HOS, URIC, MG, CMP, DBIL, LIPID #### [facility] [address] [place] [address] Dr. Karla Lagos Hemoglobin (Bld) [Mass/Vol] 17.0 g/dL Normal 14.0-18.0 [facility] Comment on above: Performed By: #### P HOS, URIC, MG, CMP, DBIL, LIPID #### [facility] [address] [place] [address] Dr. Karla Lagos IG # 0.03 10e3/ul Normal 0.00-0.03 [facility] Comment on above: Performed By: #### P HOS, URIC, MG, CMP, DBIL, LIPID #### [facility] [address] [place] [address] Dr. Karla Lagos IG % 0.4 % Normal 0.0-0.5 [facility] Comment on above: Performed By: #### P HOS, URIC, MG, CMP, DBIL, LIPID #### [facility] [address] [place] [address] Dr. Karla Lagos LYMPH # 1.1 103/ul Critically low 1.2-3.8 [facility] Comment on above: Performed By: #### P HOS, URIC, MG, CMP, DBIL, LIPID #### [facility] [address] [place] [address] Dr. Karla Lagos Lymphocytes/100 WBC (Bld) 16.0 % Critically low 20.5-60.0 [facility] Comment on above: Performed By: #### P HOS, URIC, MG, CMP, DBIL, LIPID #### [facility] [address] [place] [address] Dr. Karla Lagos MANUAL DIFF REQ NO Normal [facility] Comment on above: Performed By: #### P HOS, URIC, MG, CMP, DBIL, LIPID #### [facility] [address] [place] [address] Dr. Karla Lagos MCH (RBC) [Entitic mass] 29.9 pg Normal 25.9-34.0 [facility] Comment on above: Performed By: #### P HOS, URIC, MG, CMP, DBIL, LIPID #### [facility] [address] [place] [address] Dr. Karla Lagos MCHC (RBC) [Mass/Vol] 32.3 g/dL Normal 29.9-35.2 [facility] Comment on above: Performed By: #### P HOS, URIC, MG, CMP, DBIL, LIPID #### [facility] [address] [place] [address] Dr. Karla Lagos MCV (RBC) [Entitic vol] 92.6 fL Normal 80.0-94.0 [facility] Comment on above: Performed By: #### P HOS, URIC, MG, CMP, DBIL, LIPID #### [facility] [address] [place] [address] Dr. Karla Lagos MONO # 0.7 103/ul Normal 0.3-0.8 [facility] Comment on above: Performed By: #### P HOS, URIC, MG, CMP, DBIL, LIPID #### [facility] [address] [place] [address] Dr. Karla Lagos Monocytes/100 WBC (Bld) 10.6 % Normal 1.7-12.0 [facility] Comment on above: Performed By: #### P HOS, URIC, MG, CMP, DBIL, LIPID #### [facility] [address] [place] [address] Dr. Karla Lagos NEUT # 5.0 103/ul Normal 1.4-6.5 [facility] Comment on above: Performed By: #### P HOS, URIC, MG, CMP, DBIL, LIPID #### [facility] [address] [place] [address] Dr. Karla Lagos Neutrophils/100 WBC (Bld) 70.7 % Normal 43.0-75.0 [facility] Comment on above: Performed By: #### P HOS, URIC, MG, CMP, DBIL, LIPID #### [facility] [address] [address] [address] Karla Lagos Platelet mean volume (Bld) [Entitic vol] 10.3 fL Normal 9.5-13.5 [facility] Comment on above: Performed By: #### P HOS, URIC, MG, CMP, DBIL, LIPID #### [facility] [address] [address] [address] Karla Lagos PLT 263 103/ul Normal 150-450 [facility] Comment on above: Performed By: #### P HOS, URIC, MG, CMP, DBIL, LIPID #### [facility] [address] [place] [address] Dr. Karla Lagos RBC 5.69 106/ul Normal 4.70-6.10 [facility] Comment on above: Performed By: #### P HOS, URIC, MG, CMP, DBIL, LIPID #### [facility] [address] [place] [address] Dr. Karla Lagos WBC 7.0 103/ul Normal 4.0-11.0 [facility] Comment on above: Performed By: #### P HOS, URIC, MG, CMP, DBIL, LIPID #### [facility] [address] [place] [address] Dr. Karla Lagos LIPID PROFILEon 08-18-2022 CHOL-HDL RATIO NORM SEE BELOW Normal [facility] Comment on above: Result Comment: 3.3 - 4.4 LOW RISK 4.4 - 7.1 AVERAGE RISK 7.1 - 11.0 MODERATE RISK >11.0 HIGH RISK Performed By: #### P HOS, URIC, MG, CMP, DBIL, LIPID #### [facility] [address] [place] [address] Dr. Karla Lagos Cholesterol [Mass/Vol] 137 mg/dL Normal <=200 [facility] Comment on above: Performed By: #### P HOS, URIC, MG, CMP, DBIL, LIPID #### [facility] [address] [place] [address] Dr. Karla Lagos Cholesterol in HDL [Mass/Vol] 45 mg/dL Normal 40-60 [facility] Comment on above: Performed By: #### P HOS, URIC, MG, CMP, DBIL, LIPID #### [facility] [address] [address] [address] Karla Lagos Cholesterol in LDL [Mass/Vol] 59.0 mg/dL Normal [facility] Comment on above: Performed By: #### P HOS, URIC, MG, CMP, DBIL, LIPID #### [facility] [address] [address] [address] Karla Lagos Cholesterol.total/ Cholesterol in HDL [Mass ratio] 3.0 {ratio} Normal [facility] Comment on above: Performed By: #### P HOS, URIC, MG, CMP, DBIL, LIPID #### [facility] [address] [place] [address] Dr. Karla Lagos HDL NORMAL > or = 60 mg/dl - LO W CARDIOVASCULAR RISK <40 mg/dl - HIGH CARDIOVASCULAR RISK Normal [facility] Comment on above: Performed By: #### P HOS, URIC, MG, CMP, DBIL, LIPID #### [facility] [address] [place] [address] Dr. Karla Lagos LDL CALC NORMAL SEE BELOW Normal [facility] Comment on above: Result Comment: <100 mg/dl OPTIMAL 100 - 129 mg/dl NEAR OR ABOVE OPTIMAL 130 - 159 mg/dl BORDERLINE HIGH 160 - 189 mg/dl HIGH >190 mg/dl VERY HIGH Performed By: #### P HOS, URIC, MG, CMP, DBIL, LIPID #### [facility] [address] [address] [address] Karla Lagos Triglyceride [Mass/Vol] 165 mg/dL Critically high <=150 [facility] Comment on above: Performed By: #### P HOS, URIC, MG, CMP, DBIL, LIPID #### [facility] [address] [place] [address] Dr. Karla Lagos VLDL CALC 33.0 mg/dL Normal [facility] Comment on above: Performed By: #### P HOS, URIC, MG, CMP, DBIL, LIPID #### [facility] [address] [place] [address] Dr. Karla Lagos MAGNESIUMon 08-18-2022 Magnesium [Mass/Vol] 1.7 mg/dL Critically low 1.8-2.4 [facility] Comment on above: Performed By: #### P HOS, URIC, MG, CMP, DBIL, LIPID #### [facility] [address] [place] [address] Dr. Karla Lagos PHOSPHORUSon 08-18-2022 Phosphate [Mass/Vol] 3.6 mg/dL Normal 2.6-4.7 [facility] Comment on above: Performed By: #### P HOS, URIC, MG, CMP, DBIL, LIPID #### [facility] [address] [place] [address] Dr. Karla Lagos PROF 14(COMP METB)on 023 Albumin [Mass/Vol] 4.0 g/dL Normal 3.4-5.0 [facility] Comment on above: Performed By: #### P HOS, URIC, MG, CMP, DBIL, LIPID #### [facility] [address] [place] [address] Dr. Karla Lagos Albumin/Globulin [Mass ratio] 1.1 {ratio} Normal [facility] Comment on above: Performed By: #### P HOS, URIC, MG, CMP, DBIL, LIPID #### [facility] [address] [place] [address] Dr. Karla Lagos ALP [Catalytic activity/Vol] 96 U/L Normal 46-116 [facility] Comment on above: Performed By: #### P HOS, URIC, MG, CMP, DBIL, LIPID #### [facility] [address] [place] [address] Dr. Karla Lagos ALT [Catalytic activity/Vol] 42 U/L Normal 16-63 [facility] Comment on above: Performed By: #### P HOS, URIC, MG, CMP, DBIL, LIPID #### [facility] [address] [place] [address] Dr. Karla Lagos Anion gap [Moles/Vol] 12.9 mmol/L Normal [facility] Comment on above: Performed By: #### P HOS, URIC, MG, CMP, DBIL, LIPID #### [facility] [address] [address] [address] Karla Lagos AST [Catalytic activity/Vol] 22 U/L Normal 15-37 [facility] Comment on above: Performed By: #### P HOS, URIC, MG, CMP, DBIL, LIPID #### [facility] [address] [place] [address] Dr. Karla Lagos Bilirubin [Mass/Vol] 0.7 mg/dL Normal 0.2-1.0 [facility] Comment on above: Performed By: #### P HOS, URIC, MG, CMP, DBIL, LIPID #### [facility] [address] [address] [address] Karla Lagos Calcium [Mass/Vol] 9.4 mg/dL Normal 8.5-10.1 [facility] Comment on above: Performed By: #### P HOS, URIC, MG, CMP, DBIL, LIPID #### [facility] [address] [place] [address] Dr. Karla Lagos Chloride [Moles/Vol] 103 mmol/L Normal 98-107 [facility] Comment on above: Performed By: #### P HOS, URIC, MG, CMP, DBIL, LIPID #### [facility] [address] [address] [address] Karla Lagos CO2 [Moles/Vol] 27.8 mmol/L Normal 21.0-32.[address] [facility] Comment on above: Performed By: #### P HOS, URIC, MG, CMP, DBIL, LIPID #### [facility] [address] [place] [address] Dr. Karla Lagos Creatinine [Mass/Vol] 1.28 mg/dL Normal 0.70-1.30 [facility] Comment on above: Performed By: #### P HOS, URIC, MG, CMP, DBIL, LIPID #### [facility] [address] [place] [address] Dr. Karla Lagos EGFR-AF LIBERIAN >60 Normal >=[address] [facility] Comment on above: Performed By: #### P HOS, URIC, MG, CMP, DBIL, LIPID #### [facility] [address] [address] [address] Karla Lagos EGFR-NON AF LIBERIAN 57 mL/min/1.73m2 Critically low >=60 [facility] Comment on above: Performed By: #### P HOS, URIC, MG, CMP, DBIL, LIPID #### [facility] [address] [place] [address] Dr. Karla Lagos Globulin (S) [Mass/Vol] 3.5 g/dL Normal [facility] Comment on above: Performed By: #### P HOS, URIC, MG, CMP, DBIL, LIPID #### [facility] [address] [address] [address] Karla Lagos Glucose [Mass/Vol] 123 mg/dL Critically high 74-106 [facility] Comment on above: Performed By: #### P HOS, URIC, MG, CMP, DBIL, LIPID #### [facility] [address] [place] [address] Dr. Kalra Lagos Potassium [Moles/Vol] 4.7 mmol/L Normal 3.5-5.1 [facility] Comment on above: Performed By: #### P HOS, URIC, MG, CMP, DBIL, LIPID #### [facility] [address] [address] [address] Karla Lagos Protein [Mass/Vol] 7.5 g/dL Normal 6.4-8.2 [facility] Comment on above: Performed By: #### P HOS, URIC, MG, CMP, DBIL, LIPID #### [facility] [address] [place] [address] Dr. Karla Lagos Sodium [Moles/Vol] 139 mmol/L Normal 136-145 [facility] Comment on above: Performed By: #### P HOS, URIC, MG, CMP, DBIL, LIPID #### [facility] [address] [place] [address] Dr. Karla Lagos Urea nitrogen [Mass/Vol] 22.0 mg/dL Critically high 7.0-18.0 [facility] Comment on above: Performed By: #### P HOS, URIC, MG, CMP, DBIL, LIPID #### [facility] [address] [place] [address] Dr. Karla Lagos Urea nitrogen/Creatinin e [Mass ratio] 17.2 mg/mg Normal [facility] Comment on above: Performed By: #### P HOS, URIC, MG, CMP, DBIL, LIPID #### [facility] [address] [place] [address] Dr. Karla Lagos URIC ACID SERUMon 08-18-2022 Urate [Mass/Vol] 4.8 mg/dL Normal 3.5-7.[address] [facility] Comment on above: Performed By: #### P HOS, URIC, MG, CMP, DBIL, LIPID #### [facility] [address] [place] [address] Dr. Karla Lagos BK VIRUS PCR QUANTon 023 BKV DNA QUANT PCR PLASMA Negative Normal Negative [facility] Comment on above: Result Comment: No B K DNA detected. . The linear range of the assay is 22 - 100,000,000 IU/mL. Performed By: #### B KVIRUS #### [facility] [address] [place] [address] Dr. Karla Lagos Log10 BKV DNA Plasma Normal [facility] Comment on above: Performed By: #### B KVIRUS #### [facility] [address] [place] [address] Dr. Karla Lagos FK506 (TACROLIMUS) WHOLE BLO ODon 07-21-2022 Tacrolimus (FK506), Blood 6.1 ng/mL Normal 2.0-20.0 [facility] Comment on above: Result Comment: Trou gh (immediately following transplant) 15.0 . Trough (steady state, 2 weeks or more after transplant): 3.0 - 8.0 . Performed by LC-MS/MS technology. Performed By: #### P HOS, URIC, MG, CMP, DBIL, LIPID #### [facility] [address] [place] [address] Dr. Karla Lagos BILIRUBIN CONJUGATED (DIRECT )on 07-19-2022 BILI, CONJUGATED 0.2 mg/dL Normal 0.0-0.2 [facility] Comment on above: Performed By: #### P HOS, URIC, MG, CMP, DBIL, LIPID #### [facility] [address] [place] [address] Dr. Karla Lagos CBC AUTO DIFFon 07-19-2022 BASO # 0.0 103/ul Normal 0.0-0.1 [facility] Comment on above: Performed By: #### P HOS, URIC, MG, CMP, DBIL, LIPID #### [facility] [address] [place] [address] Dr. Karla Lagos Basophils/100 WBC (Bld) 0.4 % Normal 0.2-2.0 [facility] Comment on above: Performed By: #### P HOS, URIC, MG, CMP, DBIL, LIPID #### [facility] [address] [place] [address] Dr. Karla Lagos EO # 0.1 103/ul Normal 0.0-0.7 [facility] Comment on above: Performed By: #### P HOS, URIC, MG, CMP, DBIL, LIPID #### [facility] [address] [place] [address] Dr. Karla Lagos Eosinophils/100 WBC (Bld) 1.6 % Normal 0.9-7.0 [facility] Comment on above: Performed By: #### P HOS, URIC, MG, CMP, DBIL, LIPID #### [facility] [address] [place] [address] Dr. Karla Lagos Erythrocyte distribution width (RBC) [Ratio] 14.2 % Normal 11.0-15.0 [facility] Comment on above: Performed By: #### P HOS, URIC, MG, CMP, DBIL, LIPID #### [facility] [address] [place] [address] Dr. Karla Lagos Hematocrit (Bld) [Volume fraction] 49.8 % Normal 42.0-54.0 [facility] Comment on above: Performed By: #### P HOS, URIC, MG, CMP, DBIL, LIPID #### [facility] [address] [place] [address] Dr. Karla Lagos Hemoglobin (Bld) [Mass/Vol] 16.6 g/dL Normal 14.0-18.0 [facility] Comment on above: Performed By: #### P HOS, URIC, MG, CMP, DBIL, LIPID #### [facility] [address] [place] [address] Dr. Karla Lagos IG # 0.03 10e3/ul Normal 0.00-0.03 [facility] Comment on above: Performed By: #### P HOS, URIC, MG, CMP, DBIL, LIPID #### [facility] [address] [place] [address] Dr. Karla Lagos IG % 0.4 % Normal 0.0-0.5 [facility] Comment on above: Performed By: #### P HOS, URIC, MG, CMP, DBIL, LIPID #### [facility] [address] [place] [address] Dr. Karla Lagos LYMPH # 1.1 103/ul Critically low 1.2-3.8 [facility] Comment on above: Performed By: #### P HOS, URIC, MG, CMP, DBIL, LIPID #### [facility] [address] [place] [address] Dr. Karla Lagos Lymphocytes/100 WBC (Bld) 14.9 % Critically low 20.5-60.0 [facility] Comment on above: Performed By: #### P HOS, URIC, MG, CMP, DBIL, LIPID #### [facility] [address] [place] [address] Dr. Karla Lagos MANUAL DIFF REQ NO Normal [facility] Comment on above: Performed By: #### P HOS, URIC, MG, CMP, DBIL, LIPID #### [facility] [address] [place] [address] Dr. Karla Lagos MCH (RBC) [Entitic mass] 30.4 pg Normal 25.9-34.0 [facility] Comment on above: Performed By: #### P HOS, URIC, MG, CMP, DBIL, LIPID #### [facility] [address] [place] [address] Dr. Karla Lagos MCHC (RBC) [Mass/Vol] 33.3 g/dL Normal 29.9-35.2 [facility] Comment on above: Performed By: #### P HOS, URIC, MG, CMP, DBIL, LIPID #### [facility] [address] [place] [address] Dr. Karla Lagos MCV (RBC) [Entitic vol] 91.2 fL Normal 80.0-94.0 [facility] Comment on above: Performed By: #### P HOS, URIC, MG, CMP, DBIL, LIPID #### [facility] [address] [place] [address] Dr. Karla Lagos MONO # 0.7 103/ul Normal 0.3-0.8 [facility] Comment on above: Performed By: #### P HOS, URIC, MG, CMP, DBIL, LIPID #### [facility] [address] [place] [address] Dr. Karla Lagos Monocytes/100 WBC (Bld) 10.3 % Normal 1.7-12.0 [facility] Comment on above: Performed By: #### P HOS, URIC, MG, CMP, DBIL, LIPID #### [facility] [facility] [address] [place] [address] Dr. Karla Lagos NEUT # 5.1 103/ul Normal 1.4-6.5 [facility] Comment on above: Performed By: #### P HOS, URIC, MG, CMP, DBIL, LIPID #### [facility] [address] [place] [address] Dr. Karla Lagos Neutrophils/100 WBC (Bld) 72.4 % Normal 43.0-75.0 [facility] Comment on above: Performed By: #### P HOS, URIC, MG, CMP, DBIL, LIPID #### [facility] [address] [place] [address] Dr. Karla Lagos Platelet mean volume (Bld) [Entitic vol] 10.4 fL Normal 9.5-13.5 [facility] Comment on above: Performed By: #### P HOS, URIC, MG, CMP, DBIL, LIPID #### [facility] [address] [address] [address] Karla Lagos PLT 248 103/ul Normal 150-450 [facility] Comment on above: Performed By: #### P HOS, URIC, MG, CMP, DBIL, LIPID #### [facility] [address] [place] [address] Dr. Karla Lagos RBC 5.46 106/ul Normal 4.70-6.10 [facility] Comment on above: Performed By: #### P HOS, URIC, MG, CMP, DBIL, LIPID #### [facility] [address] [address] [address] Karla Lagos WBC 7.1 103/ul Normal 4.0-11.0 [facility] Comment on above: Performed By: #### P HOS, URIC, MG, CMP, DBIL, LIPID #### [facility] [address] [place] [address] Dr. Karla Lagos LIPID PROFILEon 07-19-2022 CHOL-HDL RATIO NORM SEE BELOW Normal [facility] Comment on above: Result Comment: 3.3 - 4.4 LOW RISK 4.4 - 7.1 AVERAGE RISK 7.1 - 11.0 MODERATE RISK >11.0 HIGH RISK Performed By: #### P HOS, URIC, MG, CMP, DBIL, LIPID #### [facility] [address] [place] [address] Dr. Karla Lagos Cholesterol [Mass/Vol] 130 mg/dL Normal <=200 [facility] Comment on above: Performed By: #### P HOS, URIC, MG, CMP, DBIL, LIPID #### [facility] [address] [place] [address] Dr. Karla Lagos Cholesterol in HDL [Mass/Vol] 43 mg/dL Normal 40-60 [facility] Comment on above: Performed By: #### P HOS, URIC, MG, CMP, DBIL, LIPID #### [facility] [address] [place] [address] Dr. Karla Lagos Cholesterol in LDL [Mass/Vol] 61.8 mg/dL Normal [facility] Comment on above: Performed By: #### P HOS, URIC, MG, CMP, DBIL, LIPID #### [facility] [address] [address] [address] Karla Lagos Cholesterol.total/ Cholesterol in HDL [Mass ratio] 3.0 {ratio} Normal [facility] Comment on above: Performed By: #### P HOS, URIC, MG, CMP, DBIL, LIPID #### [facility] [address] [address] [address] Karla Lagos HDL NORMAL > or = 60 mg/dl - LO W CARDIOVASCULAR RISK <40 mg/dl - HIGH CARDIOVASCULAR RISK Normal [facility] Comment on above: Performed By: #### P HOS, URIC, MG, CMP, DBIL, LIPID #### [facility] [address] [address] [address] Karla Lagos LDL CALC NORMAL SEE BELOW Normal [facility] Comment on above: Result Comment: <100 mg/dl OPTIMAL 100 - 129 mg/dl NEAR OR ABOVE OPTIMAL 130 - 159 mg/dl BORDERLINE HIGH 160 - 189 mg/dl HIGH >190 mg/dl VERY HIGH Performed By: #### P HOS, URIC, MG, CMP, DBIL, LIPID #### [facility] [address] [address] [address] Karla Lagos Triglyceride [Mass/Vol] 126 mg/dL Normal <=150 [facility] Comment on above: Performed By: #### P HOS, URIC, MG, CMP, DBIL, LIPID #### [facility] [address] [address] [address] Karla Lagos VLDL CALC 25.2 mg/dL Normal [facility] Comment on above: Performed By: #### P HOS, URIC, MG, CMP, DBIL, LIPID #### [facility] [address] [address] [address] Karla Lagos MAGNESIUMon 07-19-2022 Magnesium [Mass/Vol] 1.7 mg/dL Critically low 1.8-2.4 [facility] Comment on above: Performed By: #### P HOS, URIC, MG, CMP, DBIL, LIPID #### [facility] [address] [address] [address] Karla Lagos PHOSPHORUSon 07-19-2022 Phosphate [Mass/Vol] 3.1 mg/dL Normal 2.6-4.7 [facility] Comment on above: Performed By: #### P HOS, URIC, MG, CMP, DBIL, LIPID #### [facility] [address] [place] [address] Dr. Karla Lagos PROF 14(COMP METB)on 023 Albumin [Mass/Vol] 4.0 g/dL Normal 3.4-5.0 [facility] Comment on above: Performed By: #### P HOS, URIC, MG, CMP, DBIL, LIPID #### [facility] [address] [place] [address] Dr. Karla Lagos Albumin/Globulin [Mass ratio] 1.3 {ratio} Normal [facility] Comment on above: Performed By: #### P HOS, URIC, MG, CMP, DBIL, LIPID #### [facility] [address] [place] [address] Dr. Karla Lagos ALP [Catalytic activity/Vol] 79 U/L Normal 46-116 [facility] Comment on above: Performed By: #### P HOS, URIC, MG, CMP, DBIL, LIPID #### [facility] [address] [place] [address] Dr. Karla Lagos ALT [Catalytic activity/Vol] 40 U/L Normal 16-63 [facility] Comment on above: Performed By: #### P HOS, URIC, MG, CMP, DBIL, LIPID #### [facility] [address] [place] [address] Dr. Karla Lagos Anion gap [Moles/Vol] 12.8 mmol/L Normal [facility] Comment on above: Performed By: #### P HOS, URIC, MG, CMP, DBIL, LIPID #### [facility] [address] [place] [address] Dr. Karla Lagos AST [Catalytic activity/Vol] 24 U/L Normal 15-37 [facility] Comment on above: Performed By: #### P HOS, URIC, MG, CMP, DBIL, LIPID #### [facility] [address] [address] [address] Karla Lagos Bilirubin [Mass/Vol] 0.7 mg/dL Normal 0.2-1.0 [facility] Comment on above: Performed By: #### P HOS, URIC, MG, CMP, DBIL, LIPID #### [facility] [address] [place] [address] Dr. Karla Lagos Calcium [Mass/Vol] 9.3 mg/dL Normal 8.5-10.1 [facility] Comment on above: Performed By: #### P HOS, URIC, MG, CMP, DBIL, LIPID #### [facility] [address] [place] [address] Dr. Karla Lagos Chloride [Moles/Vol] 105 mmol/L Normal 98-107 [facility] Comment on above: Performed By: #### P HOS, URIC, MG, CMP, DBIL, LIPID #### [facility] [address] [place] [address] Dr. Karla Lagos CO2 [Moles/Vol] 28.4 mmol/L Normal 21.0-32.0 [facility] Comment on above: Performed By: #### P HOS, URIC, MG, CMP, DBIL, LIPID #### [facility] [address] [place] [address] Dr. Karla Lagos Creatinine [Mass/Vol] 1.23 mg/dL Normal 0.70-1.30 [facility] Comment on above: Performed By: #### P HOS, URIC, MG, CMP, DBIL, LIPID #### [facility] [address] [place] [address] Dr. Karla Lagos EGFR-AF LIBERIAN >60 Normal >=[address] [facility] Comment on above: Performed By: #### P HOS, URIC, MG, CMP, DBIL, LIPID #### [facility] [address] [place] [address] Dr. Karla Lagos EGFR-NON AF LIBERIAN =60 Normal >=60 [facility] Comment on above: Performed By: #### P HOS, URIC, MG, CMP, DBIL, LIPID #### [facility] [address] [place] [address] Dr. Karla Lagos Globulin (S) [Mass/Vol] 3.1 g/dL Normal [facility] Comment on above: Performed By: #### P HOS, URIC, MG, CMP, DBIL, LIPID #### [facility] [address] [place] [address] Dr. Karla Lagos Glucose [Mass/Vol] 114 mg/dL Critically high 74-106 [facility] Comment on above: Performed By: #### P HOS, URIC, MG, CMP, DBIL, LIPID #### [facility] [address] [place] [address] Dr. Karla Lagos Potassium [Moles/Vol] 4.2 mmol/L Normal 3.5-5.1 [facility] Comment on above: Performed By: #### P HOS, URIC, MG, CMP, DBIL, LIPID #### [facility] [address] [place] [address] Dr. Karla Lagos Protein [Mass/Vol] 7.1 g/dL Normal 6.4-8.2 [facility] Comment on above: Performed By: #### P HOS, URIC, MG, CMP, DBIL, LIPID #### [facility] [address] [place] [address] Dr. Karla Lagos Sodium [Moles/Vol] 142 mmol/L Normal 136-145 [facility] Comment on above: Performed By: #### P HOS, URIC, MG, CMP, DBIL, LIPID #### [facility] [address] [place] [address] Dr. Karla Lagos Urea nitrogen [Mass/Vol] 15.0 mg/dL Normal 7.0-18.0 [facility] Comment on above: Performed By: #### P HOS, URIC, MG, CMP, DBIL, LIPID #### [facility] [address] [place] [address] Dr. Karla Lagos Urea nitrogen/Creatinin e [Mass ratio] 12.2 mg/mg Normal [facility] Comment on above: Performed By: #### P HOS, URIC, MG, CMP, DBIL, LIPID #### [facility] [address] [address] [address] Karla Lagos URIC ACID SERUMon 07-19-2022 Urate [Mass/Vol] 5.1 mg/dL Normal 3.5-7.2 [facility] Comment on above: Performed By: #### P HOS, URIC, MG, CMP, DBIL, LIPID #### [facility] [address] [place] [address] Dr. Karla Lagos FK506 (TACROLIMUS) WHOLE BLO ODon 06-04-2022 Tacrolimus (FK506), Blood 5.1 ng/mL Normal 2.0-20.0 [facility] Comment on above: Result Comment: Trou gh (immediately following transplant) 15.0 . Trough (steady state, 2 weeks or more after transplant): 3.0 - 8.0 . Performed by LC-MS/MS technology. Performed By: #### P HOS, URIC, MG, CMP, DBIL, LIPID #### [facility] [address] [place] [address] Dr. Karla Lagos BK VIRUS PCR QUANTon 023 BKV DNA QUANT PCR PLASMA Negative Normal Negative [facility] Comment on above: Result Comment: No B K DNA detected. . The linear range of the assay is 22 - 100,000,000 IU/mL. Performed By: #### P HOS, URIC, MG, CMP, DBIL, LIPID #### [facility] [address] [place] [address] Dr. Karla Lagos Log10 BKV DNA Plasma Normal [facility] Comment on above: Performed By: #### P HOS, URIC, MG, CMP, DBIL, LIPID #### [facility] [address] [place] [address] Dr. Karla Lagos BILIRUBIN CONJUGATED (DIRECT )on 06-01-2022 BILI, CONJUGATED 0.1 mg/dL Normal 0.0-0.2 [facility] Comment on above: Performed By: #### P HOS, URIC, MG, CMP, DBIL, LIPID #### [facility] [address] [place] [address] Dr. Karla Lagos CBC AUTO DIFFon 06-01-2022 BASO # 0.1 103/ul Normal 0.0-0.1 [facility] Comment on above: Performed By: #### P HOS, URIC, MG, CMP, DBIL, LIPID #### [facility] [address] [place] [address] Dr. Karla Lagos Basophils/100 WBC (Bld) 0.9 % Normal 0.2-2.0 [facility] Comment on above: Performed By: #### P HOS, URIC, MG, CMP, DBIL, LIPID #### [facility] [address] [place] [address] Dr. Karla Lagos EO # 0.1 103/ul Normal 0.0-0.7 [facility] Comment on above: Performed By: #### P HOS, URIC, MG, CMP, DBIL, LIPID #### [facility] [address] [place] [address] Dr. Karla Lagos Eosinophils/100 WBC (Bld) 1.6 % Normal 0.9-7.0 [facility] Comment on above: Performed By: #### P HOS, URIC, MG, CMP, DBIL, LIPID #### [facility] [address] [place] [address] Dr. Karla Lagos Erythrocyte distribution width (RBC) [Ratio] 13.4 % Normal 11.0-15.0 [facility] Comment on above: Performed By: #### P HOS, URIC, MG, CMP, DBIL, LIPID #### [facility] [address] [place] [address] Dr. Karla Lagos Hematocrit (Bld) [Volume fraction] 46.3 % Normal 42.0-54.0 [facility] Comment on above: Performed By: #### P HOS, URIC, MG, CMP, DBIL, LIPID #### [facility] [address] [place] [address] Dr. Karla Lagos Hemoglobin (Bld) [Mass/Vol] 15.4 g/dL Normal 14.0-18.0 [facility] Comment on above: Performed By: #### P HOS, URIC, MG, CMP, DBIL, LIPID #### [facility] [address] [place] [address] Dr. Karla Lagos IG # 0.10 10e3/ul Critically high 0.00-0.03 [facility] Comment on above: Performed By: #### P HOS, URIC, MG, CMP, DBIL, LIPID #### [facility] [address] [place] [address] Dr. Karla Lagos IG % 1.3 % Critically high 0.0-0.5 [facility] Comment on above: Performed By: #### P HOS, URIC, MG, CMP, DBIL, LIPID #### [facility] [address] [place] [address] Dr. Karla Lagos LYMPH # 1.0 103/ul Critically low 1.2-3.8 [facility] Comment on above: Performed By: #### P HOS, URIC, MG, CMP, DBIL, LIPID #### [facility] [address] [place] [address] Dr. Karla Lagos Lymphocytes/100 WBC (Bld) 12.8 % Critically low 20.5-60.0 [facility] Comment on above: Performed By: #### P HOS, URIC, MG, CMP, DBIL, LIPID #### [facility] [address] [place] [address] Dr. Karla Laogs MANUAL DIFF REQ NO Normal [facility] Comment on above: Performed By: #### P HOS, URIC, MG, CMP, DBIL, LIPID #### [facility] [address] [place] [address] Dr. Karla Lagos MCH (RBC) [Entitic mass] 30.4 pg Normal 25.9-34.0 [facility] Comment on above: Performed By: #### P HOS, URIC, MG, CMP, DBIL, LIPID #### [facility] [address] [place] [address] Dr. Karla Lagos MCHC (RBC) [Mass/Vol] 33.3 g/dL Normal 29.9-35.2 [facility] Comment on above: Performed By: #### P HOS, URIC, MG, CMP, DBIL, LIPID #### [facility] [address] [place] [address] Dr. Karla Lagos MCV (RBC) [Entitic vol] 91.3 fL Normal 80.0-94.0 [facility] Comment on above: Performed By: #### P HOS, URIC, MG, CMP, DBIL, LIPID #### [facility] [address] [address] [address] Karla Lagos MONO # 0.6 103/ul Normal 0.3-0.8 [facility] Comment on above: Performed By: #### P HOS, URIC, MG, CMP, DBIL, LIPID #### [facility] [address] [place] [address] Dr. Karla Lagos Monocytes/100 WBC (Bld) 8.6 % Normal 1.7-12.0 [facility] Comment on above: Performed By: #### P HOS, URIC, MG, CMP, DBIL, LIPID #### [facility] [address] [place] [address] Dr. Karla Lagos NEUT # 5.5 103/ul Normal 1.4-6.5 [facility] Comment on above: Performed By: #### P HOS, URIC, MG, CMP, DBIL, LIPID #### [facility] [address] [place] [address] Dr. Karla Lagos Neutrophils/100 WBC (Bld) 74.8 % Normal 43.0-75.0 [facility] Comment on above: Performed By: #### P HOS, URIC, MG, CMP, DBIL, LIPID #### [facility] [address] [place] [address] Dr. Karla Lagos Platelet mean volume (Bld) [Entitic vol] 9.6 fL Normal 9.5-13.5 [facility] Comment on above: Performed By: #### P HOS, URIC, MG, CMP, DBIL, LIPID #### [facility] [address] [place] [address] Dr. Karla Lagos PLT 312 103/ul Normal 150-450 [facility] Comment on above: Performed By: #### P HOS, URIC, MG, CMP, DBIL, LIPID #### [facility] [address] [address] [address] Karla Lagos RBC 5.07 106/ul Normal 4.70-6.10 [facility] Comment on above: Performed By: #### P HOS, URIC, MG, CMP, DBIL, LIPID #### [facility] [address] [address] [address] Karla Lagos WBC 7.4 103/ul Normal 4.0-11.0 [facility] Comment on above: Performed By: #### P HOS, URIC, MG, CMP, DBIL, LIPID #### [facility] [address] [place] [address] Dr. Karla Lagos LIPID PROFILEon 06-01-2022 CHOL-HDL RATIO NORM SEE BELOW Normal [facility] Comment on above: Result Comment: 3.3 - 4.4 LOW RISK 4.4 - 7.1 AVERAGE RISK 7.1 - 11.0 MODERATE RISK >11.0 HIGH RISK Performed By: #### P HOS, URIC, MG, CMP, DBIL, LIPID #### [facility] [address] [place] [address] Dr. Karla Lagos Cholesterol [Mass/Vol] 108 mg/dL Normal <=200 [facility] Comment on above: Performed By: #### P HOS, URIC, MG, CMP, DBIL, LIPID #### [facility] [address] [place] [address] Dr. Karla Lagos Cholesterol in HDL [Mass/Vol] 36 mg/dL Critically low 40-60 [facility] Comment on above: Performed By: #### P HOS, URIC, MG, CMP, DBIL, LIPID #### [facility] [address] [place] [address] Dr. Karla Lagos Cholesterol in LDL [Mass/Vol] 58.4 mg/dL Normal [facility] Comment on above: Performed By: #### P HOS, URIC, MG, CMP, DBIL, LIPID #### [facility] [address] [place] [address] Dr. Karla Lagos Cholesterol.total/ Cholesterol in HDL [Mass ratio] 3.0 {ratio} Normal [facility] Comment on above: Performed By: #### P HOS, URIC, MG, CMP, DBIL, LIPID #### [facility] [address] [address] [address] Karla Lagos HDL NORMAL > or = 60 mg/dl - LO W CARDIOVASCULAR RISK <40 mg/dl - HIGH CARDIOVASCULAR RISK Normal [facility] Comment on above: Performed By: #### P HOS, URIC, MG, CMP, DBIL, LIPID #### [facility] [address] [address] [address] Karla Lagos LDL CALC NORMAL SEE BELOW Normal [facility] Comment on above: Result Comment: <100 mg/dl OPTIMAL 100 - 129 mg/dl NEAR OR ABOVE OPTIMAL 130 - 159 mg/dl BORDERLINE HIGH 160 - 189 mg/dl HIGH >190 mg/dl VERY HIGH Performed By: #### P HOS, URIC, MG, CMP, DBIL, LIPID #### [facility] [address] [place] [address] Dr. Karla Lagos Triglyceride [Mass/Vol] 68 mg/dL Normal <=150 [facility] Comment on above: Performed By: #### P HOS, URIC, MG, CMP, DBIL, LIPID #### [facility] [address] [place] [address] Dr. Karla Lagos VLDL CALC 13.6 mg/dL Normal [facility] Comment on above: Performed By: #### P HOS, URIC, MG, CMP, DBIL, LIPID #### [facility] [address] [place] [address] Dr. Karla Lagos MAGNESIUMon 06-01-2022 Magnesium [Mass/Vol] 1.7 mg/dL Critically low 1.8-2.4 [facility] Comment on above: Performed By: #### P HOS, URIC, MG, CMP, DBIL, LIPID #### [facility] [address] [place] [address] Dr. Karla Lagos PHOSPHORUSon 06-01-2022 Phosphate [Mass/Vol] 3.7 mg/dL Normal 2.6-4.7 [facility] Comment on above: Performed By: #### P HOS, URIC, MG, CMP, DBIL, LIPID #### [facility] [address] [place] [address] Dr. Karla Lagos PROF 14(COMP METB)on 023 Albumin [Mass/Vol] 3.4 g/dL Normal 3.4-5.0 [facility] Comment on above: Performed By: #### P HOS, URIC, MG, CMP, DBIL, LIPID #### [facility] [address] [place] [address] Dr. Karla Lagos Albumin/Globulin [Mass ratio] 1.0 {ratio} Normal [facility] Comment on above: Performed By: #### P HOS, URIC, MG, CMP, DBIL, LIPID #### [facility] [address] [place] [address] Dr. Karla Lagos ALP [Catalytic activity/Vol] 92 U/L Normal 46-116 [facility] Comment on above: Performed By: #### P HOS, URIC, MG, CMP, DBIL, LIPID #### [facility] [address] [place] [address] Dr. Karla Lagos ALT [Catalytic activity/Vol] 33 U/L Normal 16-63 [facility] Comment on above: Performed By: #### P HOS, URIC, MG, CMP, DBIL, LIPID #### [facility] [address] [place] [address] Dr. Karla Lagos Anion gap [Moles/Vol] 12.7 mmol/L Normal [facility] Comment on above: Performed By: #### P HOS, URIC, MG, CMP, DBIL, LIPID #### [facility] [address] [place] [address] Dr. Karla Lagos AST [Catalytic activity/Vol] 21 U/L Normal 15-37 [facility] Comment on above: Performed By: #### P HOS, URIC, MG, CMP, DBIL, LIPID #### [facility] [address] [place] [address] Dr. Karla Lagos Bilirubin [Mass/Vol] 0.4 mg/dL Normal 0.2-1.0 [facility] Comment on above: Performed By: #### P HOS, URIC, MG, CMP, DBIL, LIPID #### [facility] [address] [place] [address] Dr. Karla Lagos Calcium [Mass/Vol] 9.0 mg/dL Normal 8.5-10.1 [facility] Comment on above: Performed By: #### P HOS, URIC, MG, CMP, DBIL, LIPID #### [facility] [address] [place] [address] Dr. Karla Lagos Chloride [Moles/Vol] 104 mmol/L Normal 98-107 [facility] Comment on above: Performed By: #### P HOS, URIC, MG, CMP, DBIL, LIPID #### [facility] [address] [place] [address] Dr. Karla [place] CO2 [Moles/Vol] 28.7 mmol/L Normal 21.0-32.0 [facility] Comment on above: Performed By: #### P HOS, URIC, MG, CMP, DBIL, LIPID #### [facility] [address] [place] [address] Dr. Karla [place] Creatinine [Mass/Vol] 1.15 mg/dL Normal 0.70-1.30 [facility] Comment on above: Performed By: #### P HOS, URIC, MG, CMP, DBIL, LIPID #### [facility] [address] [place] [address] Dr. Karla [place] EGFR-AF LIBERIAN >60 Normal >=60 [facility] Comment on above: Performed By: #### P HOS, URIC, MG, CMP, DBIL, LIPID #### [facility] [address] [place] [address] Dr. Karla [place] EGFR-NON AF LIBERIAN >60 Normal >=60 [facility] Comment on above: Performed By: #### P HOS, URIC, MG, CMP, DBIL, LIPID #### [facility] [address] [place] [address] Dr. Karla [place] Globulin (S) [Mass/Vol] 3.3 g/dL Normal [facility] Comment on above: Performed By: #### P HOS, URIC, MG, CMP, DBIL, LIPID #### [facility] [address] [address] [address] Karla [place] Glucose [Mass/Vol] 112 mg/dL Critically high 74-106 [facility] Comment on above: Performed By: #### P HOS, URIC, MG, CMP, DBIL, LIPID #### [facility] [address] [place] [address] Dr. Karla [place] Potassium [Moles/Vol] 4.4 mmol/L Normal 3.5-5.1 [facility] Comment on above: Performed By: #### P HOS, URIC, MG, CMP, DBIL, LIPID #### [facility] [address] [place] [address] Dr. Karla [place] Protein [Mass/Vol] 6.7 g/dL Normal 6.4-8.2 [facility] Comment on above: Performed By: #### P HOS, URIC, MG, CMP, DBIL, LIPID #### [facility] [address] [place] [address] Dr. Karla [place] Sodium [Moles/Vol] 141 mmol/L Normal 136-145 [facility] Comment on above: Performed By: #### P HOS, URIC, MG, CMP, DBIL, LIPID #### [facility] [address] [place] [address] Dr. Karla [place] Urea nitrogen [Mass/Vol] 17.0 mg/dL Normal 7.0-18.0 [facility] Comment on above: Performed By: #### P HOS, URIC, MG, CMP, DBIL, LIPID #### [facility] [address] [place] [address] Dr. Karla [place] Urea nitrogen/Creatinin e [Mass ratio] 14.8 mg/mg Normal [facility] Comment on above: Performed By: #### P HOS, URIC, MG, CMP, DBIL, LIPID #### [facility] [address] [place] [address] Dr. Karla [place] URIC ACID SERUMon 06-01-2022 Urate [Mass/Vol] 5.3 mg/dL Normal 3.5-7.2 [facility] Comment on above: Performed By: #### P HOS, URIC, MG, CMP, DBIL, LIPID #### [facility] [address] [address] [address] Karla [place] NM STRESS/REST MULTIon 05-30 NM STRESS/REST MULTI Patient: VISHAL DUKE Exam Date: 05/30/2022 : 1960 Gender:M Ordering : DR FEDERICO CHESTER M.D. Admission #: [id number] Family : Order #: [id number] CLICK HERE TO VIEW EXAM RADIOLOGY REPORT [...] Basal inferoseptal. Basal inferior. Mid-anteroseptal. Mid-inferoseptal. Mid-inferior. [place]. SIZE: Large (5 or more segments). SEVERITY: [...] MD on 06/01/2022 at 06:10 Normal [facility] FK506 (TACROLIMUS) WHOLE BLO ODon 05-06-2022 Tacrolimus (FK506), Blood 5.4 ng/mL Normal 2.0-20.0 [facility] Comment on above: Result Comment: Trou gh (immediately following transplant) 15.0 . Trough (steady state, 2 weeks or more after transplant): 3.0 - 8.0 . Performed by LC-MS/MS technology. Performed By: #### P HOS, URIC, MG, CMP, DBIL, LIPID #### [facility] [address] [place] [address] Dr. Karla [place] BK VIRUS PCR QUANTon 023 BKV DNA QUANT PCR PLASMA Negative Normal Negative [facility] Comment on above: Result Comment: No B K DNA detected. . The linear range of the assay is 22 - 100,000,000 IU/mL. Performed By: #### P HOS, URIC, MG, CMP, DBIL, LIPID #### [facility] [address] [place] [address] Dr. Karla [place] Log10 BKV DNA Plasma Normal [facility] Comment on above: Performed By: #### P HOS, URIC, MG, CMP, DBIL, LIPID #### [facility] [address] [place] [address] Dr. Karla [place] BILIRUBIN CONJUGATED (DIRECT )on 05-03-2022 BILI, CONJUGATED 0.2 mg/dL Normal 0.0-0.[address] [facility] Comment on above: Performed By: #### P HOS, URIC, MG, CMP, DBIL, LIPID #### [facility] [address] [place] [address] Dr. Karla [place] CBC AUTO DIFFon 05-03-2022 BASO # 0.1 103/ul Normal 0.0-0.1 [facility] Comment on above: Performed By: #### P HOS, URIC, MG, CMP, DBIL, LIPID #### [facility] [address] [place] [address] Dr. Karla [place] Basophils/100 WBC (Bld) 0.7 % Normal 0.2-2.0 [facility] Comment on above: Performed By: #### P HOS, URIC, MG, CMP, DBIL, LIPID #### [facility] [address] [address] [address] Karla [place] EO # 0.1 103/ul Normal 0.0-0.7 [facility] Comment on above: Performed By: #### P HOS, URIC, MG, CMP, DBIL, LIPID #### [facility] [address] [place] [address] Dr. Karla [place] Eosinophils/100 WBC (Bld) 1.6 % Normal 0.9-7.0 [facility] Comment on above: Performed By: #### P HOS, URIC, MG, CMP, DBIL, LIPID #### [facility] [address] [place] [address] Dr. Karla [place]os Erythrocyte distribution width (RBC) [Ratio] 13.7 % Normal 11.0-15.0 [facility] Comment on above: Performed By: #### P HOS, URIC, MG, CMP, DBIL, LIPID #### [facility] [address] [place] [address] Dr. Karla [place] Hematocrit (Bld) [Volume fraction] 49.1 % Normal 42.0-54.0 [facility] Comment on above: Performed By: #### P HOS, URIC, MG, CMP, DBIL, LIPID #### [facility] [address] [place] [address] Dr. Karla [place]os Hemoglobin (Bld) [Mass/Vol] 16.5 g/dL Normal 14.0-18.0 [facility] Comment on above: Performed By: #### P HOS, URIC, MG, CMP, DBIL, LIPID #### [facility] [address] [place] [address] Dr. Karla [place]os IG # 0.05 10e3/ul Critically high 0.00-0.03 [facility] Comment on above: Performed By: #### P HOS, URIC, MG, CMP, DBIL, LIPID #### [facility] [address] [place] [address] Dr. Karla [place] IG % 0.7 % Critically high 0.0-0.5 [facility] Comment on above: Performed By: #### P HOS, URIC, MG, CMP, DBIL, LIPID #### [facility] [address] [place] [address] Dr. Karla [place] LYMPH # 1.0 103/ul Critically low 1.2-3.8 [facility] Comment on above: Performed By: #### P HOS, URIC, MG, CMP, DBIL, LIPID #### [facility] [address] [place] [address] Dr. Karla [place]os Lymphocytes/100 WBC (Bld) 13.7 % Critically low 20.5-60.0 [facility] Comment on above: Performed By: #### P HOS, URIC, MG, CMP, DBIL, LIPID #### [facility] [address] [place] [address] Dr. Karla [place] MANUAL DIFF REQ NO Normal [facility] Comment on above: Performed By: #### P HOS, URIC, MG, CMP, DBIL, LIPID #### [facility] [address] [place] [address] Dr. Karla [place] MCH (RBC) [Entitic mass] 30.9 pg Normal 25.9-34.0 [facility] Comment on above: Performed By: #### P HOS, URIC, MG, CMP, DBIL, LIPID #### [facility] [address] [place] [address] Dr. Karla [place] MCHC (RBC) [Mass/Vol] 33.6 g/dL Normal 29.9-35.2 [facility] Comment on above: Performed By: #### P HOS, URIC, MG, CMP, DBIL, LIPID #### [facility] [address] [place] [address] Dr. Karla [place] MCV (RBC) [Entitic vol] 91.9 fL Normal 80.0-94.0 [facility] Comment on above: Performed By: #### P HOS, URIC, MG, CMP, DBIL, LIPID #### [facility] [address] [place] [address] Dr. Karla [place] MONO # 0.7 103/ul Normal 0.3-0.8 [facility] Comment on above: Performed By: #### P HOS, URIC, MG, CMP, DBIL, LIPID #### [facility] [address] [place] [address] Dr. Karla [place]os Monocytes/100 WBC (Bld) 9.7 % Normal 1.7-12.0 [facility] Comment on above: Performed By: #### P HOS, URIC, MG, CMP, DBIL, LIPID #### [facility] [address] [place] [address] Dr. Karla Lagos NEUT # 5.2 103/ul Normal 1.4-6.5 [facility] Comment on above: Performed By: #### P HOS, URIC, MG, CMP, DBIL, LIPID #### [facility] [address] [place] [address] Dr. Karla Lagos Neutrophils/100 WBC (Bld) 73.6 % Normal 43.0-75.0 [facility] Comment on above: Performed By: #### P HOS, URIC, MG, CMP, DBIL, LIPID #### [facility] [address] [place] [address] Dr. Karla Lagos Platelet mean volume (Bld) [Entitic vol] 10.2 fL Normal 9.5-13.5 [facility] Comment on above: Performed By: #### P HOS, URIC, MG, CMP, DBIL, LIPID #### [facility] [address] [place] [address] Dr. Karla Lagos PLT 218 103/ul Normal 150-450 [facility] Comment on above: Performed By: #### P HOS, URIC, MG, CMP, DBIL, LIPID #### [facility] [address] [place] [address] Dr. Karla [place]os RBC 5.34 106/ul Normal 4.70-6.10 [facility] Comment on above: Performed By: #### P HOS, URIC, MG, CMP, DBIL, LIPID #### [facility] [address] [place] [address] Dr. Karla Lagos WBC 7.1 103/ul Normal 4.0-11.0 [facility] Comment on above: Performed By: #### P HOS, URIC, MG, CMP, DBIL, LIPID #### [facility] [address] [place] [address] Dr. Karla [place]os LIPID PROFILEon 05-03-2022 CHOL-HDL RATIO NORM SEE BELOW Normal [facility] Comment on above: Result Comment: 3.3 - 4.4 LOW RISK 4.4 - 7.1 AVERAGE RISK 7.1 - 11.0 MODERATE RISK >11.0 HIGH RISK Performed By: #### M G, CMP, URIC, DBIL, LIPID, PHOS #### [facility] [address] [address] [address] Karla [place] Cholesterol [Mass/Vol] 121 mg/dL Normal <=200 [facility] Comment on above: Performed By: #### M G, CMP, URIC, DBIL, LIPID, PHOS #### [facility] [address] [place] [address] Dr. Karla Lagos Cholesterol in HDL [Mass/Vol] 44 mg/dL Normal 40-60 [facility] Comment on above: Performed By: #### M G, CMP, URIC, DBIL, LIPID, PHOS #### [facility] [address] [place] [address] Dr. Karla [place]os Cholesterol in LDL [Mass/Vol] 40.0 mg/dL Normal [facility] Comment on above: Performed By: #### M G, CMP, URIC, DBIL, LIPID, PHOS #### [facility] [address] [place] [address] Dr. Karla [place]os Cholesterol.total/ Cholesterol in HDL [Mass ratio] 2.8 {ratio} Normal [facility] Comment on above: Performed By: #### M G, CMP, URIC, DBIL, LIPID, PHOS #### [facility] [address] [place] [address] Dr. Karla [place]os HDL NORMAL > or = 60 mg/dl - LO W CARDIOVASCULAR RISK <40 mg/dl - HIGH CARDIOVASCULAR RISK Normal [facility] Comment on above: Performed By: #### M G, CMP, URIC, DBIL, LIPID, PHOS #### [facility] [address] [address] [address] Karla [place]os LDL CALC NORMAL SEE BELOW Normal [facility] Comment on above: Result Comment: <100 mg/dl OPTIMAL 100 - 129 mg/dl NEAR OR ABOVE OPTIMAL 130 - 159 mg/dl BORDERLINE HIGH 160 - 189 mg/dl HIGH >190 mg/dl VERY HIGH Performed By: #### M G, CMP, URIC, DBIL, LIPID, PHOS #### [facility] [address] [address] [address] Karla Lagos Triglyceride [Mass/Vol] 185 mg/dL Critically high <=150 [facility] Comment on above: Performed By: #### M G, CMP, URIC, DBIL, LIPID, PHOS #### [facility] [address] [address] [address] Karla Lagos VLDL CALC 37.0 mg/dL Normal [facility] Comment on above: Performed By: #### M G, CMP, URIC, DBIL, LIPID, PHOS #### [facility] [address] [address] [address] Karla [place]os MAGNESIUMon 05-03-2022 Magnesium [Mass/Vol] 1.6 mg/dL Critically low 1.8-2.4 [facility] Comment on above: Performed By: #### P HOS, URIC, MG, CMP, DBIL, LIPID #### [facility] [address] [address] [address] Karla Lagos PHOSPHORUSon 05-03-2022 Phosphate [Mass/Vol] 3.6 mg/dL Normal 2.6-4.7 [facility] Comment on above: Performed By: #### P HOS, URIC, MG, CMP, DBIL, LIPID #### [facility] [address] [address] [address] Karla Lagos PROF 14(COMP METB)on 023 Albumin [Mass/Vol] 3.9 g/dL Normal 3.4-5.0 [facility] Comment on above: Performed By: #### M G, CMP, URIC, DBIL, LIPID, PHOS #### [facility] [address] [place] [address] Dr. Karla Lagos Albumin/Globulin [Mass ratio] 1.3 {ratio} Normal [facility] Comment on above: Performed By: #### M G, CMP, URIC, DBIL, LIPID, PHOS #### [facility] [address] [address] [address] Karla Lagos ALP [Catalytic activity/Vol] 80 U/L Normal 46-116 [facility] Comment on above: Performed By: #### M G, CMP, URIC, DBIL, LIPID, PHOS #### [facility] [address] [place] [address] Dr. Karla Lagos ALT [Catalytic activity/Vol] 41 U/L Normal 16-63 [facility] Comment on above: Performed By: #### M G, CMP, URIC, DBIL, LIPID, PHOS #### [facility] [address] [place] [address] Dr. Karla Lagos Anion gap [Moles/Vol] 11.9 mmol/L Normal [facility] Comment on above: Performed By: #### M G, CMP, URIC, DBIL, LIPID, PHOS #### [facility] [address] [place] [address] Dr. Karla Lagos AST [Catalytic activity/Vol] 24 U/L Normal 15-37 [facility] Comment on above: Performed By: #### M G, CMP, URIC, DBIL, LIPID, PHOS #### [facility] [address] [place] [address] Dr. Karla Lagos Bilirubin [Mass/Vol] 0.7 mg/dL Normal 0.2-1.0 [facility] Comment on above: Performed By: #### M G, CMP, URIC, DBIL, LIPID, PHOS #### [facility] [address] [place] [address] Dr. Karla Lagos Calcium [Mass/Vol] 9.2 mg/dL Normal 8.5-10.1 [facility] Comment on above: Performed By: #### M G, CMP, URIC, DBIL, LIPID, PHOS #### [facility] [address] [address] [address] Karla Lagos Chloride [Moles/Vol] 103 mmol/L Normal 98-107 [facility] Comment on above: Performed By: #### M G, CMP, URIC, DBIL, LIPID, PHOS #### [facility] [address] [address] [address] Karla Lagos CO2 [Moles/Vol] 28.1 mmol/L Normal 21.0-32.0 [facility] Comment on above: Performed By: #### M G, CMP, URIC, DBIL, LIPID, PHOS #### [facility] [address] [place] [address] Dr. Karla Lagos Creatinine [Mass/Vol] 1.19 mg/dL Normal 0.70-1.30 [facility] Comment on above: Performed By: #### M G, CMP, URIC, DBIL, LIPID, PHOS #### [facility] [address] [place] [address] Dr. Karla Lagos EGFR-AF LIBERIAN >60 Normal >=60 [facility] Comment on above: Performed By: #### M G, CMP, URIC, DBIL, LIPID, PHOS #### [facility] [address] [place] [address] Dr. Karla Lagos EGFR-NON AF LIBERIAN >60 Normal >=60 [facility] Comment on above: Performed By: #### M G, CMP, URIC, DBIL, LIPID, PHOS #### [facility] [address] [place] [address] Dr. Karla Lagos Globulin (S) [Mass/Vol] 2.9 g/dL Normal [facility] Comment on above: Performed By: #### M G, CMP, URIC, DBIL, LIPID, PHOS #### [facility] [address] [place] [address] Dr. Karla Lagos Glucose [Mass/Vol] 119 mg/dL Critically high 74-106 [facility] Comment on above: Performed By: #### M G, CMP, URIC, DBIL, LIPID, PHOS #### [facility] [address] [address] [address] Karla Lagos Potassium [Moles/Vol] 4.0 mmol/L Normal 3.5-5.1 [facility] Comment on above: Performed By: #### M G, CMP, URIC, DBIL, LIPID, PHOS #### [facility] [address] [place] [address] Dr. Karla Lagos Protein [Mass/Vol] 6.8 g/dL Normal 6.4-8.2 [facility] Comment on above: Performed By: #### M G, CMP, URIC, DBIL, LIPID, PHOS #### [facility] [address] [address] [address] Karla Lagos Sodium [Moles/Vol] 139 mmol/L Normal 136-145 [facility] Comment on above: Performed By: #### M G, CMP, URIC, DBIL, LIPID, PHOS #### [facility] [address] [place] [address] Dr. Karla Lagos Urea nitrogen [Mass/Vol] 20.0 mg/dL Critically high 7.0-18.0 [facility] Comment on above: Performed By: #### M G, CMP, URIC, DBIL, LIPID, PHOS #### [facility] [address] [place] [address] Dr. Karla Lagos Urea nitrogen/Creatinin e [Mass ratio] 16.8 mg/mg Normal [facility] Comment on above: Performed By: #### M G, CMP, URIC, DBIL, LIPID, PHOS #### [facility] [address] [place] [address] Dr. Karla Lagos URIC ACID SERUMon 05-03-2022 Urate [Mass/Vol] 5.5 mg/dL Normal 3.5-7.[address] [facility] Comment on above: Performed By: #### M G, CMP, URIC, DBIL, LIPID, PHOS #### [facility] [address] [place] [address] Dr. Karla Lagos FK506 (TACROLIMUS) WHOLE BLO ODon 04-17-2022 Tacrolimus (FK506), Blood 6.1 ng/mL Normal 2.0-20.0 [facility] Comment on above: Result Comment: Trou gh (immediately following transplant) 15.0 . Trough (steady state, 2 weeks or more after transplant): 3.0 - 8.0 . Performed by LC-MS/MS technology. Performed By: #### P HOS, URIC, MG, CMP, DBIL, LIPID #### [facility] [address] [place] [address] Dr. Karla Lagos FK506 (TACROLIMUS) WHOLE BLO ODon 03-28-2022 Tacrolimus (FK506), Blood 8.8 ng/mL Normal 2.0-20.0 [facility] Comment on above: Result Comment: Trou gh (immediately following transplant) 15.0 . Trough (steady state, 2 weeks or more after transplant): 3.0 - 8.0 . Performed by LC-MS/MS technology. Performed By: #### P HOS, URIC, MG, CMP, DBIL, LIPID #### [facility] [address] [place] [address] Dr. Karla Lagos BILIRUBIN CONJUGATED (DIRECT )on 03-25-2022 BILI, CONJUGATED 0.2 mg/dL Normal 0.0-0.2 [facility] Comment on above: Performed By: #### P HOS, URIC, MG, CMP, DBIL, LIPID #### [facility] [address] [place] [address] Dr. Karla Lagos CBC AUTO DIFFon 03-25-2022 BASO # 0.1 103/ul Normal 0.0-0.1 [facility] Comment on above: Performed By: #### P HOS, URIC, MG, CMP, DBIL, LIPID #### [facility] [address] [place] [address] Dr. Karla Lagos Basophils/100 WBC (Bld) 0.7 % Normal 0.2-2.0 [facility] Comment on above: Performed By: #### P HOS, URIC, MG, CMP, DBIL, LIPID #### [facility] [address] [place] [address] Dr. Karla Lagos EO # 0.1 103/ul Normal 0.0-0.7 [facility] Comment on above: Performed By: #### P HOS, URIC, MG, CMP, DBIL, LIPID #### [facility] [address] [address] [address] Karla Lagos Eosinophils/100 WBC (Bld) 1.4 % Normal 0.9-7.0 [facility] Comment on above: Performed By: #### P HOS, URIC, MG, CMP, DBIL, LIPID #### [facility] [address] [address] [address] Karla Lagos Erythrocyte distribution width (RBC) [Ratio] 13.6 % Normal 11.0-15.0 [facility] Comment on above: Performed By: #### P HOS, URIC, MG, CMP, DBIL, LIPID #### [facility] [address] [place] [address] Dr. Karla Lagos Hematocrit (Bld) [Volume fraction] 51.5 % Normal 42.0-54.0 [facility] Comment on above: Performed By: #### P HOS, URIC, MG, CMP, DBIL, LIPID #### [facility] [address] [place] [address] Dr. Karla Lagos Hemoglobin (Bld) [Mass/Vol] 16.8 g/dL Normal 14.0-18.0 [facility] Comment on above: Performed By: #### P HOS, URIC, MG, CMP, DBIL, LIPID #### [facility] [address] [place] [address] Dr. Karla Lagos IG # 0.06 10e3/ul Critically high 0.00-0.03 [facility] Comment on above: Performed By: #### P HOS, URIC, MG, CMP, DBIL, LIPID #### [facility] [address] [place] [address] Dr. Karla Lagos IG % 0.8 % Critically high 0.0-0.5 [facility] Comment on above: Performed By: #### P HOS, URIC, MG, CMP, DBIL, LIPID #### [facility] [address] [place] [address] Dr. Karla Lagos LYMPH # 1.1 103/ul Critically low 1.2-3.8 [facility] Comment on above: Performed By: #### P HOS, URIC, MG, CMP, DBIL, LIPID #### [facility] [address] [place] [address] Dr. Karla Lagos Lymphocytes/100 WBC (Bld) 14.8 % Critically low 20.5-60.0 [facility] Comment on above: Performed By: #### P HOS, URIC, MG, CMP, DBIL, LIPID #### [facility] [address] [place] [address] Dr. Karla Lagos MANUAL DIFF REQ NO Normal [facility] Comment on above: Performed By: #### P HOS, URIC, MG, CMP, DBIL, LIPID #### [facility] [address] [place] [address] Dr. Karla Lagos MCH (RBC) [Entitic mass] 30.2 pg Normal 25.9-34.0 [facility] Comment on above: Performed By: #### P HOS, URIC, MG, CMP, DBIL, LIPID #### [facility] [address] [place] [address] Dr. Karla Laogs MCHC (RBC) [Mass/Vol] 32.6 g/dL Normal 29.9-35.2 [facility] Comment on above: Performed By: #### P HOS, URIC, MG, CMP, DBIL, LIPID #### [facility] [address] [place] [address] Dr. Karla Lagos MCV (RBC) [Entitic vol] 92.6 fL Normal 80.0-94.0 [facility] Comment on above: Performed By: #### P HOS, URIC, MG, CMP, DBIL, LIPID #### [facility] [address] [place] [address] Dr. Karla Lagos MONO # 0.7 103/ul Normal 0.3-0.8 [facility] Comment on above: Performed By: #### P HOS, URIC, MG, CMP, DBIL, LIPID #### [facility] [address] [place] [address] Dr. Karla Lagos Monocytes/100 WBC (Bld) 10.0 % Normal 1.7-12.0 [facility] Comment on above: Performed By: #### P HOS, URIC, MG, CMP, DBIL, LIPID #### [facility] [address] [address] [address] Karla Lagos NEUT # 5.2 103/ul Normal 1.4-6.5 [facility] Comment on above: Performed By: #### P HOS, URIC, MG, CMP, DBIL, LIPID #### [facility] [address] [place] [address] Dr. Karla Lagos Neutrophils/100 WBC (Bld) 72.3 % Normal 43.0-75.0 [facility] Comment on above: Performed By: #### P HOS, URIC, MG, CMP, DBIL, LIPID #### [facility] [address] [place] [address] Dr. Karla Lagos Platelet mean volume (Bld) [Entitic vol] 10.4 fL Normal 9.5-13.5 [facility] Comment on above: Performed By: #### P HOS, URIC, MG, CMP, DBIL, LIPID #### [facility] [address] [address] [address] Karla Lagos PLT 245 103/ul Normal 150-450 [facility] Comment on above: Performed By: #### P HOS, URIC, MG, CMP, DBIL, LIPID #### [facility] [address] [address] [address] Karla Lagos RBC 5.56 106/ul Normal 4.70-6.10 [facility] Comment on above: Performed By: #### P HOS, URIC, MG, CMP, DBIL, LIPID #### [facility] [address] [address] [address] Karla Lagos WBC 7.2 103/ul Normal 4.0-11.0 [facility] Comment on above: Performed By: #### P HOS, URIC, MG, CMP, DBIL, LIPID #### [facility] [address] [place] [address] Dr. Karla Lagos LIPID PROFILEon 03-25-2022 CHOL-HDL RATIO NORM SEE BELOW Normal [facility] Comment on above: Result Comment: 3.3 - 4.4 LOW RISK 4.4 - 7.1 AVERAGE RISK 7.1 - 11.0 MODERATE RISK >11.0 HIGH RISK Performed By: #### P HOS, URIC, MG, CMP, DBIL, LIPID #### [facility] [address] [address] [address] Karla Lagos Cholesterol [Mass/Vol] 124 mg/dL Normal <=200 [facility] Comment on above: Performed By: #### P HOS, URIC, MG, CMP, DBIL, LIPID #### [facility] [address] [address] [address] Karla Lagos Cholesterol in HDL [Mass/Vol] 47 mg/dL Normal 40-60 [facility] Comment on above: Performed By: #### P HOS, URIC, MG, CMP, DBIL, LIPID #### [facility] [address] [address] [address] Karla Lagos Cholesterol in LDL [Mass/Vol] 47.4 mg/dL Normal [facility] Comment on above: Performed By: #### P HOS, URIC, MG, CMP, DBIL, LIPID #### [facility] [address] [place] [address] Dr. Karla Lagos Cholesterol.total/ Cholesterol in HDL [Mass ratio] 2.6 {ratio} Normal [facility] Comment on above: Performed By: #### P HOS, URIC, MG, CMP, DBIL, LIPID #### [facility] [address] [place] [address] Dr. Karla Lagos HDL NORMAL > or = 60 mg/dl - LO W CARDIOVASCULAR RISK <40 mg/dl - HIGH CARDIOVASCULAR RISK Normal [facility] Comment on above: Performed By: #### P HOS, URIC, MG, CMP, DBIL, LIPID #### [facility] [address] [place] [address] Dr. Karla Lagos LDL CALC NORMAL SEE BELOW Normal [facility] Comment on above: Result Comment: <100 mg/dl OPTIMAL 100 - 129 mg/dl NEAR OR ABOVE OPTIMAL 130 - 159 mg/dl BORDERLINE HIGH 160 - 189 mg/dl HIGH >190 mg/dl VERY HIGH Performed By: #### P HOS, URIC, MG, CMP, DBIL, LIPID #### [facility] [address] [place] [address] Dr. Karla Lagos Triglyceride [Mass/Vol] 148 mg/dL Normal <=150 [facility] Comment on above: Performed By: #### P HOS, URIC, MG, CMP, DBIL, LIPID #### [facility] [address] [address] [address] Karla Lagos VLDL CALC 29.6 mg/dL Normal [facility] Comment on above: Performed By: #### P HOS, URIC, MG, CMP, DBIL, LIPID #### [facility] [address] [place] [address] Dr. Karla Lagos MAGNESIUMon 03-25-2022 Magnesium [Mass/Vol] 1.5 mg/dL Critically low 1.8-2.4 [facility] Comment on above: Performed By: #### P HOS, URIC, MG, CMP, DBIL, LIPID #### [facility] [address] [place] [address] Dr. Karla Lagos PHOSPHORUSon 03-25-2022 Phosphate [Mass/Vol] 3.8 mg/dL Normal 2.6-4.7 [facility] Comment on above: Performed By: #### P HOS, URIC, MG, CMP, DBIL, LIPID #### [facility] [address] [place] [address] Dr. Karla Lagos PROF 14(COMP METB)on 022 Albumin [Mass/Vol] 4.1 g/dL Normal 3.4-5.0 [facility] Comment on above: Performed By: #### P HOS, URIC, MG, CMP, DBIL, LIPID #### [facility] [address] [place] [address] Dr. Karla Lagos Albumin/Globulin [Mass ratio] 1.3 {ratio} Normal [facility] Comment on above: Performed By: #### P HOS, URIC, MG, CMP, DBIL, LIPID #### [facility] [address] [address] [address] Karla Lagos ALP [Catalytic activity/Vol] 76 U/L Normal 46-116 [facility] Comment on above: Performed By: #### P HOS, URIC, MG, CMP, DBIL, LIPID #### [facility] [address] [place] [address] Dr. Karla Lagos ALT [Catalytic activity/Vol] 36 U/L Normal 16-63 [facility] Comment on above: Performed By: #### P HOS, URIC, MG, CMP, DBIL, LIPID #### [facility] [address] [place] [address] Dr. Karla Lagos Anion gap [Moles/Vol] 12.4 mmol/L Normal [facility] Comment on above: Performed By: #### P HOS, URIC, MG, CMP, DBIL, LIPID #### [facility] [address] [place] [address] Dr. Karla Lagos AST [Catalytic activity/Vol] 21 U/L Normal 15-37 [facility] Comment on above: Performed By: #### P HOS, URIC, MG, CMP, DBIL, LIPID #### [facility] [address] [place] [address] Dr. Karla Lagos Bilirubin [Mass/Vol] 0.6 mg/dL Normal 0.2-1.0 [facility] Comment on above: Performed By: #### P HOS, URIC, MG, CMP, DBIL, LIPID #### [facility] [address] [place] [address] Dr. Karla Lagos Calcium [Mass/Vol] 9.4 mg/dL Normal 8.5-10.1 [facility] Comment on above: Performed By: #### P HOS, URIC, MG, CMP, DBIL, LIPID #### [facility] [address] [place] [address] Dr. Karla Lagos Chloride [Moles/Vol] 103 mmol/L Normal 98-107 [facility] Comment on above: Performed By: #### P HOS, URIC, MG, CMP, DBIL, LIPID #### [facility] [address] [place] [address] Dr. Karla Lagos CO2 [Moles/Vol] 30.6 mmol/L Normal 21.0-32.0 [facility] Comment on above: Performed By: #### P HOS, URIC, MG, CMP, DBIL, LIPID #### [facility] [address] [place] [address] Dr. Karla Lagos Creatinine [Mass/Vol] 1.34 mg/dL Critically high 0.70-1.30 [facility] Comment on above: Performed By: #### P HOS, URIC, MG, CMP, DBIL, LIPID #### [facility] [address] [place] [address] Dr. Karla Lagos EGFR-AF LIBERIAN >60 Normal >=60 [facility] Comment on above: Performed By: #### P HOS, URIC, MG, CMP, DBIL, LIPID #### [facility] [address] [place] [address] Dr. Karla Lagos EGFR-NON AF LIBERIAN 54 mL/min/1.73m2 Critically low >=60 [facility] Comment on above: Performed By: #### P HOS, URIC, MG, CMP, DBIL, LIPID #### [facility] [address] [address] [address] Karla Lagos Globulin (S) [Mass/Vol] 3.2 g/dL Normal [facility] Comment on above: Performed By: #### P HOS, URIC, MG, CMP, DBIL, LIPID #### [facility] [address] [place] [address] Dr. Karla Lagos Glucose [Mass/Vol] 125 mg/dL Critically high 74-106 [facility] Comment on above: Performed By: #### P HOS, URIC, MG, CMP, DBIL, LIPID #### [facility] [address] [place] [address] Dr. Karla Lagos Potassium [Moles/Vol] 5.0 mmol/L Normal 3.5-5.1 [facility] Comment on above: Performed By: #### P HOS, URIC, MG, CMP, DBIL, LIPID #### [facility] [address] [place] [address] Dr. Karla Lagos Protein [Mass/Vol] 7.3 g/dL Normal 6.4-8.2 [facility] Comment on above: Performed By: #### P HOS, URIC, MG, CMP, DBIL, LIPID #### [facility] [address] [address] [address] Karla Lagos Sodium [Moles/Vol] 141 mmol/L Normal 136-145 [facility] Comment on above: Performed By: #### P HOS, URIC, MG, CMP, DBIL, LIPID #### [facility] [address] [address] [address] Karla Lagos Urea nitrogen [Mass/Vol] 24.0 mg/dL Critically high 7.0-18.0 [facility] Comment on above: Performed By: #### P HOS, URIC, MG, CMP, DBIL, LIPID #### [facility] [address] [place] [address] Dr. Karla Lagos Urea nitrogen/Creatinin e [Mass ratio] 17.9 mg/mg Normal [facility] Comment on above: Performed By: #### P HOS, URIC, MG, CMP, DBIL, LIPID #### [facility] [address] [place] [address] Dr. Karla Lagos URIC ACID SERUMon 03-25-2022 Urate [Mass/Vol] 5.0 mg/dL Normal 3.5-7.2 [facility] Comment on above: Performed By: #### P HOS, URIC, MG, CMP, DBIL, LIPID #### [facility] [address] [place] [address] Dr. Karla Lagos FK506 (TACROLIMUS) WHOLE BLO ODon 02-27-2022 Tacrolimus (FK506), Blood 8.0 ng/mL Normal 2.0-20.0 [facility] Comment on above: Result Comment: Trou gh (immediately following transplant) 15.0 . Trough (steady state, 2 weeks or more after transplant): 3.0 - 8.0 . Performed by LC-MS/MS technology. Performed By: #### P HOS, URIC, MG, CMP, DBIL, LIPID #### [facility] [address] [place] [address] Dr. Karla Lagos BK VIRUS PCR QUANTon 022 BKV DNA QUANT PCR PLASMA Negative Normal Negative [facility] Comment on above: Result Comment: No B K DNA detected. . The linear range of the assay is 22 - 100,000,000 IU/mL. Performed By: #### P HOS, URIC, MG, CMP, DBIL, LIPID #### [facility] [address] [place] [address] Dr. Karla Lagos Log10 BKV DNA Plasma Normal [facility] Comment on above: Performed By: #### P HOS, URIC, MG, CMP, DBIL, LIPID #### [facility] [address] [place] [address] Dr. Karla Lagos BILIRUBIN CONJUGATED (DIRECT )on 02-24-2022 BILI, CONJUGATED 0.2 mg/dL Normal 0.0-0.2 [facility] Comment on above: Performed By: #### P HOS, URIC, MG, CMP, DBIL, LIPID #### [facility] [address] [place] [address] Dr. Karla Lagos CBC AUTO DIFFon 02-24-2022 BASO # 0.1 103/ul Normal 0.0-0.1 [facility] Comment on above: Performed By: #### P HOS, URIC, MG, CMP, DBIL, LIPID #### [facility] [address] [place] [address] Dr. Karla Lagos Basophils/100 WBC (Bld) 0.8 % Normal 0.2-2.0 [facility] Comment on above: Performed By: #### P HOS, URIC, MG, CMP, DBIL, LIPID #### [facility] [address] [place] [address] Dr. Karla Lagos EO # 0.1 103/ul Normal 0.0-0.7 [facility] Comment on above: Performed By: #### P HOS, URIC, MG, CMP, DBIL, LIPID #### [facility] [address] [place] [address] Dr. Karla Lagos Eosinophils/100 WBC (Bld) 1.7 % Normal 0.9-7.0 [facility] Comment on above: Performed By: #### P HOS, URIC, MG, CMP, DBIL, LIPID #### [facility] [address] [place] [address] Dr. Karla Lagos Erythrocyte distribution width (RBC) [Ratio] 14.1 % Normal 11.0-15.0 [facility] Comment on above: Performed By: #### P HOS, URIC, MG, CMP, DBIL, LIPID #### [facility] [address] [place] [address] Dr. Karla Lagos Hematocrit (Bld) [Volume fraction] 48.1 % Normal 42.0-54.0 [facility] Comment on above: Performed By: #### P HOS, URIC, MG, CMP, DBIL, LIPID #### [facility] [address] [place] [address] Dr. Karla Lagos Hemoglobin (Bld) [Mass/Vol] 16.0 g/dL Normal 14.0-18.0 [facility] Comment on above: Performed By: #### P HOS, URIC, MG, CMP, DBIL, LIPID #### [facility] [address] [place] [address] Dr. Karla Lagos IG # 0.03 10e3/ul Normal 0.00-0.03 [facility] Comment on above: Performed By: #### P HOS, URIC, MG, CMP, DBIL, LIPID #### [facility] [address] [place] [address] Dr. Karla Lagos IG % 0.5 % Normal 0.0-0.5 [facility] Comment on above: Performed By: #### P HOS, URIC, MG, CMP, DBIL, LIPID #### [facility] [address] [place] [address] Dr. Karla Lagos LYMPH # 1.0 103/ul Critically low 1.2-3.8 [facility] Comment on above: Performed By: #### P HOS, URIC, MG, CMP, DBIL, LIPID #### [facility] [address] [place] [address] Dr. Karla Lagos Lymphocytes/100 WBC (Bld) 16.9 % Critically low 20.5-60.0 [facility] Comment on above: Performed By: #### P HOS, URIC, MG, CMP, DBIL, LIPID #### [facility] [address] [place] [address] Dr. Karla Lagos MANUAL DIFF REQ NO Normal [facility] Comment on above: Performed By: #### P HOS, URIC, MG, CMP, DBIL, LIPID #### [facility] [address] [place] [address] Dr. Karla Lagos MCH (RBC) [Entitic mass] 31.1 pg Normal 25.9-34.0 [facility] Comment on above: Performed By: #### P HOS, URIC, MG, CMP, DBIL, LIPID #### [facility] [address] [place] [address] Dr. Karla Lagos MCHC (RBC) [Mass/Vol] 33.3 g/dL Normal 29.9-35.2 [facility] Comment on above: Performed By: #### P HOS, URIC, MG, CMP, DBIL, LIPID #### [facility] [address] [place] [address] Dr. Karla Lagos MCV (RBC) [Entitic vol] 93.6 fL Normal 80.0-94.0 [facility] Comment on above: Performed By: #### P HOS, URIC, MG, CMP, DBIL, LIPID #### [facility] [address] [place] [address] Dr. Karla Lagos MONO # 0.6 103/ul Normal 0.3-0.8 [facility] Comment on above: Performed By: #### P HOS, URIC, MG, CMP, DBIL, LIPID #### [facility] [address] [place] [address] Dr. Karla Lagos Monocytes/100 WBC (Bld) 10.1 % Normal 1.7-12.0 [facility] Comment on above: Performed By: #### P HOS, URIC, MG, CMP, DBIL, LIPID #### [facility] [address] [place] [address] Dr. Karla Lagos NEUT # 4.2 103/ul Normal 1.4-6.5 [facility] Comment on above: Performed By: #### P HOS, URIC, MG, CMP, DBIL, LIPID #### [facility] [address] [address] [address] Karla Lagos Neutrophils/100 WBC (Bld) 70.0 % Normal 43.0-75.0 [facility] Comment on above: Performed By: #### P HOS, URIC, MG, CMP, DBIL, LIPID #### [facility] [address] [address] [address] Karla Lagos Platelet mean volume (Bld) [Entitic vol] 10.2 fL Normal 9.5-13.5 [facility] Comment on above: Performed By: #### P HOS, URIC, MG, CMP, DBIL, LIPID #### [facility] [address] [place] [address] Dr. Karla Lagos PLT 226 103/ul Normal 150-450 [facility] Comment on above: Performed By: #### P HOS, URIC, MG, CMP, DBIL, LIPID #### [facility] [address] [address] [address] Karla Lagos RBC 5.14 106/ul Normal 4.70-6.10 [facility] Comment on above: Performed By: #### P HOS, URIC, MG, CMP, DBIL, LIPID #### [facility] [address] [address] [address] Karla Lagos WBC 6.0 103/ul Normal 4.0-11.0 [facility] Comment on above: Performed By: #### P HOS, URIC, MG, CMP, DBIL, LIPID #### [facility] [address] [place] [address] Dr. Karla Lagos LIPID PROFILEon 02-24-2022 CHOL-HDL RATIO NORM SEE BELOW Normal [facility] Comment on above: Result Comment: 3.3 - 4.4 LOW RISK 4.4 - 7.1 AVERAGE RISK 7.1 - 11.0 MODERATE RISK >11.0 HIGH RISK Performed By: #### P HOS, URIC, MG, CMP, DBIL, LIPID #### [facility] [address] [address] [address] Karla Lagos Cholesterol [Mass/Vol] 132 mg/dL Normal <=200 [facility] Comment on above: Performed By: #### P HOS, URIC, MG, CMP, DBIL, LIPID #### [facility] [address] [address] [address] Karla Lagos Cholesterol in HDL [Mass/Vol] 50 mg/dL Normal 40-60 [facility] Comment on above: Performed By: #### P HOS, URIC, MG, CMP, DBIL, LIPID #### [facility] [address] [address] [address] Karla Lagos Cholesterol in LDL [Mass/Vol] 54.6 mg/dL Normal [facility] Comment on above: Performed By: #### P HOS, URIC, MG, CMP, DBIL, LIPID #### [facility] [address] [address] [address] Karla Lagos Cholesterol.total/ Cholesterol in HDL [Mass ratio] 2.6 {ratio} Normal [facility] Comment on above: Performed By: #### P HOS, URIC, MG, CMP, DBIL, LIPID #### [facility] [address] [place] [address] Dr. Karla Lagos HDL NORMAL > or = 60 mg/dl - LO W CARDIOVASCULAR RISK <40 mg/dl - HIGH CARDIOVASCULAR RISK Normal [facility] Comment on above: Performed By: #### P HOS, URIC, MG, CMP, DBIL, LIPID #### [facility] [address] [place] [address] Dr. Karla Lagos LDL CALC NORMAL SEE BELOW Normal [facility] Comment on above: Result Comment: <100 mg/dl OPTIMAL 100 - 129 mg/dl NEAR OR ABOVE OPTIMAL 130 - 159 mg/dl BORDERLINE HIGH 160 - 189 mg/dl HIGH >190 mg/dl VERY HIGH Performed By: #### P HOS, URIC, MG, CMP, DBIL, LIPID #### [facility] [address] [place] [address] Dr. Karla Lagos Triglyceride [Mass/Vol] 137 mg/dL Normal <=150 [facility] Comment on above: Performed By: #### P HOS, URIC, MG, CMP, DBIL, LIPID #### [facility] [address] [address] [address] Karla Lagos VLDL CALC 27.4 mg/dL Normal [facility] Comment on above: Performed By: #### P HOS, URIC, MG, CMP, DBIL, LIPID #### [facility] [address] [address] [address] Karla Lagos MAGNESIUMon 02-24-2022 Magnesium [Mass/Vol] 1.5 mg/dL Critically low 1.8-2.4 [facility] Comment on above: Performed By: #### P HOS, URIC, MG, CMP, DBIL, LIPID #### [facility] [address] [place] [address] Dr. Karla Lagos PHOSPHORUSon 02-24-2022 Phosphate [Mass/Vol] 3.2 mg/dL Normal 2.6-4.7 [facility] Comment on above: Performed By: #### P HOS, URIC, MG, CMP, DBIL, LIPID #### [facility] [address] [place] [address] Dr. Karla Lagos PROF 14(COMP METB)on 022 Albumin [Mass/Vol] 4.1 g/dL Normal 3.4-5.0 [facility] Comment on above: Performed By: #### P HOS, URIC, MG, CMP, DBIL, LIPID #### [facility] [address] [place] [address] Dr. Karla Lagos Albumin/Globulin [Mass ratio] 1.4 {ratio} Normal [facility] Comment on above: Performed By: #### P HOS, URIC, MG, CMP, DBIL, LIPID #### [facility] [address] [place] [address] Dr. Karla Lagos ALP [Catalytic activity/Vol] 73 U/L Normal 46-116 [facility] Comment on above: Performed By: #### P HOS, URIC, MG, CMP, DBIL, LIPID #### [facility] [address] [address] [address] Karla Lagos ALT [Catalytic activity/Vol] 27 U/L Normal 16-63 [facility] Comment on above: Performed By: #### P HOS, URIC, MG, CMP, DBIL, LIPID #### [facility] [facility] [address] [address] [address] Karla Lagos Anion gap [Moles/Vol] 11.7 mmol/L Normal [facility] Comment on above: Performed By: #### P HOS, URIC, MG, CMP, DBIL, LIPID #### [facility] [address] [address] [address] Karla Lagos AST [Catalytic activity/Vol] 16 U/L Normal 15-37 [facility] Comment on above: Performed By: #### P HOS, URIC, MG, CMP, DBIL, LIPID #### [facility] [address] [place] [address] Dr. Karla Lagos Bilirubin [Mass/Vol] 0.8 mg/dL Normal 0.2-1.0 [facility] Comment on above: Performed By: #### P HOS, URIC, MG, CMP, DBIL, LIPID #### [facility] [address] [address] [address] Karla Lagos Calcium [Mass/Vol] 9.1 mg/dL Normal 8.5-10.1 [facility] Comment on above: Performed By: #### P HOS, URIC, MG, CMP, DBIL, LIPID #### [facility] [address] [address] [address] Karla Lagos Chloride [Moles/Vol] 104 mmol/L Normal 98-107 [facility] Comment on above: Performed By: #### P HOS, URIC, MG, CMP, DBIL, LIPID #### [facility] [address] [address] [address] Karla Lagos CO2 [Moles/Vol] 29.4 mmol/L Normal 21.0-32.0 [facility] Comment on above: Performed By: #### P HOS, URIC, MG, CMP, DBIL, LIPID #### [facility] [address] [address] [address] Karla Lagos Creatinine [Mass/Vol] 1.27 mg/dL Normal 0.70-1.30 [facility] Comment on above: Performed By: #### P HOS, URIC, MG, CMP, DBIL, LIPID #### [facility] [address] [address] [address] Karla Lagos EGFR-AF LIBERIAN >60 Normal >=60 [facility] Comment on above: Performed By: #### P HOS, URIC, MG, CMP, DBIL, LIPID #### [facility] [address] [address] [address] Karla Lagos EGFR-NON AF LIBERIAN 58 mL/min/1.73m2 Critically low >=60 [facility] Comment on above: Performed By: #### P HOS, URIC, MG, CMP, DBIL, LIPID #### [facility] [address] [place] [address] Dr. Karla Lagos Globulin (S) [Mass/Vol] 2.9 g/dL Normal [facility] Comment on above: Performed By: #### P HOS, URIC, MG, CMP, DBIL, LIPID #### [facility] [address] [address] [address] Karla Lagos Glucose [Mass/Vol] 113 mg/dL Critically high 74-106 [facility] Comment on above: Performed By: #### P HOS, URIC, MG, CMP, DBIL, LIPID #### [facility] [address] [address] [address] Karla Lagos Potassium [Moles/Vol] 4.1 mmol/L Normal 3.5-5.1 [facility] Comment on above: Performed By: #### P HOS, URIC, MG, CMP, DBIL, LIPID #### [facility] [address] [place] [address] Dr. Karla Lagos Protein [Mass/Vol] 7.0 g/dL Normal 6.4-8.2 [facility] Comment on above: Performed By: #### P HOS, URIC, MG, CMP, DBIL, LIPID #### [facility] [address] [place], [place] [address] Dr. Karla Lagos Sodium [Moles/Vol] 141 mmol/L Normal 136-145 [facility] Comment on above: Performed By: #### P HOS, URIC, MG, CMP, DBIL, LIPID #### [facility] [address] [address] [address] Karla Lagos Urea nitrogen [Mass/Vol] 18.0 mg/dL Normal 7.0-18.0 [facility] Comment on above: Performed By: #### P HOS, URIC, MG, CMP, DBIL, LIPID #### [facility] [address] [address] [address] Karla Lagos Urea nitrogen/Creatinin e [Mass ratio] 14.2 mg/mg Normal [facility] Comment on above: Performed By: #### P HOS, URIC, MG, CMP, DBIL, LIPID #### [facility] [address] [address] [address] Karla Lagos URIC ACID SERUMon 02-24-2022 Urate [Mass/Vol] 6.0 mg/dL Normal 3.5-7.2 [facility] Comment on above: Performed By: #### P HOS, URIC, MG, CMP, DBIL, LIPID #### [facility] [address] [address] [address] Karla Lagos XR Chest 2 Views*on 01-14-20 22 XR Chest 2 Views* FINDINGS: Comparison made with prior examination of September 24, 2020. Improved aeration with no persistent parenchymal consolidation. No pleural or pericardial effusions. Normal cardiac silhouette size. Sternotomy wires. Left central cardiac pacemaker. IMPRESSION: 1. Minimal residual post-inflammatory sequela. Report reported and signed by Ajnum Remy on 01/13/2022 1143 Normal [facility] Occupational Nurse ECHOCARDIO M/2D COMPLETEon 0 09-28-2021 ECHOCARDIO M/2D COMPLETE Patient: VISHAL DUKE Exam Date: 09/28/2021 : 1960 Gender:M Ordering : DR FEDERICO CHESTER M.D. Admission #: [id number] Family : DR ROSA M GONZALES M.D. Order #: [id number] CLICK HERE TO VIEW EXAM ECHOCARDIOGRAM REPORT [...] Area(A4C): 20.50 cm2 Left Atrium Systolic Volume(A2C): 04816 mm3 Left Atrium Systolic Volume(A4C): 67395 mm3 Mitral Valve MV E to A [...] M.D. on 09/28/2021 at 19:38 Normal [facility] Bilirubin, Directon 09-28-19 22 DBIL <0.2 Normal [facility] Occupational Nurse Comment on above: Result Comment: Refe rence range change 03/03/2017. Prior reference range 0.1-0.3 mg/dL. Performed By: #### C BCAD, MG, URIC, LIPD, PHOS, CMP, DBIL #### [facility] [address] [place], [place] [id number] Complete Blood Count with Au to Diffon 09-27-2021 Basophils (Bld) [#/Vol] 0.06 10*3/uL Normal 0.00-0.20 [facility] Comment on above: Performed By: #### C BCAD, MG, URIC, LIPD, PHOS, CMP, DBIL #### [facility] [address] [place], [place] [id number] Basophils/100 WBC (Bld) 1.0 % Normal [facility] Occupational Nurse Comment on above: Performed By: #### C BCAD, MG, URIC, LIPD, PHOS, CMP, DBIL #### [facility] [address] [place], [place] [id number] Eosinophils (Bld) [#/Vol] 0.09 10*3/uL Normal 0.02-0.50 [facility] Comment on above: Performed By: #### C BCAD, MG, URIC, LIPD, PHOS, CMP, DBIL #### [facility] [address], [place] [id number] Eosinophils/100 WBC (Bld) 1.5 % Normal [facility] Comment on above: Performed By: #### C BCAD, MG, URIC, LIPD, PHOS, CMP, DBIL #### [facility] [address], [place] [id number] Erythrocyte distribution width (RBC) [Ratio] 14.1 % Normal 11.0-15.0 [facility] Comment on above: Performed By: #### C BCAD, MG, URIC, LIPD, PHOS, CMP, DBIL #### [facility] [address] [place], [place] [id number] Hematocrit (Bld) [Volume fraction] 51.6 % High 38.5-50.0 [facility] Comment on above: Performed By: #### C BCAD, MG, URIC, LIPD, PHOS, CMP, DBIL #### [facility] [address] [place], [place] [id number] Hemoglobin (Bld) [Mass/Vol] 16.5 g/dL Normal 13.0-17.1 [facility] Comment on above: Performed By: #### C BCAD, MG, URIC, LIPD, PHOS, CMP, DBIL #### [facility] [address], [place] [id number] Lymphocytes (Bld) [#/Vol] 1.0 10*3/uL Normal 0.9-3.9 [facility] Comment on above: Performed By: #### C BCAD, MG, URIC, LIPD, PHOS, CMP, DBIL #### [facility] [address] [place], [place] [id number] Lymphocytes/100 WBC (Bld) 16.3 % Normal [facility] Comment on above: Performed By: #### C BCAD, MG, URIC, LIPD, PHOS, CMP, DBIL #### [facility] [address] [place], [place] [id number] MCH (RBC) [Entitic mass] 29.9 pg Normal 27.0-33.0 [facility] Comment on above: Performed By: #### C BCAD, MG, URIC, LIPD, PHOS, CMP, DBIL #### [facility] [address], [place] [id number] MCHC (RBC) [Mass/Vol] 32.0 g/dL Normal 32.0-36.0 [facility] Comment on above: Performed By: #### C BCAD, MG, URIC, LIPD, PHOS, CMP, DBIL #### [facility] [address], [place] [id number] MCV (RBC) [Entitic vol] 94 fL Normal 80-100 [facility] Comment on above: Performed By: #### C BCAD, MG, URIC, LIPD, PHOS, CMP, DBIL #### [facility] [address], [place] [id number] Monocytes (Bld) [#/Vol] 0.7 10*3/uL Normal 0.2-0.9 [facility] Comment on above: Performed By: #### C BCAD, MG, URIC, LIPD, PHOS, CMP, DBIL #### [facility] [address], [place] [id number] Monocytes/100 WBC (Bld) 11.1 % Normal [facility] Comment on above: Performed By: #### C BCAD, MG, URIC, LIPD, PHOS, CMP, DBIL #### [facility] [address], [place] [id number] Neutrophils (Bld) [#/Vol] 4.2 10*3/uL Normal 1.5-7.8 [facility] Comment on above: Performed By: #### C BCAD, MG, URIC, LIPD, PHOS, CMP, DBIL #### [facility] [address], [place] [id number] Neutrophils/100 WBC (Bld) 69.8 % Normal [facility] Comment on above: Performed By: #### C BCAD, MG, URIC, LIPD, PHOS, CMP, DBIL #### [facility] [address], [place] [id number] Platelet mean volume (Bld) [Entitic vol] 10.80 fL Normal 7.50-12.50 [facility] Occupational Nurse Comment on above: Performed By: #### C BCAD, MG, URIC, LIPD, PHOS, CMP, DBIL #### [facility] [address], [place] [id number] Platelets (Bld) [#/Vol] 247 10*3/uL Normal 140-400 [facility] Occupational Nurse Comment on above: Performed By: #### C BCAD, MG, URIC, LIPD, PHOS, CMP, DBIL #### [facility] [address], [place] [id number] RBC (Bld) [#/Vol] 5.52 10*6/uL Normal 4.20-5.80 [facility] Occupational Nurse Comment on above: Performed By: #### C BCAD, MG, URIC, LIPD, PHOS, CMP, DBIL #### [facility] [address], [place] [id number] RDW-SD 48.9 fL Normal 37.0-50.0 [facility] Occupational Nurse Comment on above: Performed By: #### C BCAD, MG, URIC, LIPD, PHOS, CMP, DBIL #### [facility] [address], [place] [id number] WBC (Bld) [#/Vol] 6.0 10*3/uL Normal 3.8-11.0 [place] [place] [facility]ational Nurse Comment on above: Performed By: #### C BCAD, MG, URIC, LIPD, PHOS, CMP, DBIL #### [facility] [address], [place] [id number] [facility] 09-27-2021 Albumin [Mass/Vol] 5.0 g/dL Normal 3.6-5.1 [facility] [place] [facility]ational Nurse Comment on above: Performed By: #### C BCAD, MG, URIC, LIPD, PHOS, CMP, DBIL #### [facility] [address], [place] [id number] Albumin/Globulin [Mass ratio] 2.8 {ratio} High 1.0-2.5 [place] Occupational Nurse Comment on above: Performed By: #### C BCAD, MG, URIC, LIPD, PHOS, CMP, DBIL #### [facility] [address], [place] [id number] ALP [Catalytic activity/Vol] 79 U/L Normal 40-129 [facility] Comment on above: Performed By: #### C BCAD, MG, URIC, LIPD, PHOS, CMP, DBIL #### [facility] [address], [place] [id number] ALT [Catalytic activity/Vol] 29 U/L Normal 9-46 [facility] Comment on above: Result Comment: 03/17 Female reference range changed. Performed By: #### C BCAD, MG, URIC, LIPD, PHOS, CMP, DBIL #### [facility] [address], [place] [id number] Anion gap [Moles/Vol] 23 mmol/L High 12-20 [facility] Comment on above: Result Comment: Effe ctive 04/22/2019 reference range changed. Performed By: #### C BCAD, MG, URIC, LIPD, PHOS, CMP, DBIL #### [facility] [address], [place] [id number] AST [Catalytic activity/Vol] 25 U/L Normal 10-40 [facility] Comment on above: Performed By: #### C BCAD, MG, URIC, LIPD, PHOS, CMP, DBIL #### [facility] [address], [place] [id number] Bilirubin [Mass/Vol] 0.66 mg/dL Normal 0.30-1.20 [facility] Comment on above: Performed By: #### C BCAD, MG, URIC, LIPD, PHOS, CMP, DBIL #### [facility] [address], [place] [id number] BUN/CREA 18 Ratio Normal 6-22 [facility] Comment on above: Performed By: #### C BCAD, MG, URIC, LIPD, PHOS, CMP, DBIL #### [facility] [address], [place] [id number] Calcium [Mass/Vol] 10.0 mg/dL Normal 8.6-10.2 [facility] Comment on above: Performed By: #### C BCAD, MG, URIC, LIPD, PHOS, CMP, DBIL #### [facility] [address], [place] [id number] Chloride [Moles/Vol] 105 mmol/L Normal 98-107 [facility] Comment on above: Performed By: #### C BCAD, MG, URIC, LIPD, PHOS, CMP, DBIL #### [facility] [address], [place] [id number] CO2 [Moles/Vol] 20 mmol/L Normal 20-31 [facility] Comment on above: Performed By: #### C BCAD, MG, URIC, LIPD, PHOS, CMP, DBIL #### [facility] [address], [place] [id number] Creatinine [Mass/Vol] 1.2 mg/dL Normal 0.7-1.4 [facility] Comment on above: Performed By: #### C BCAD, MG, URIC, LIPD, PHOS, CMP, DBIL #### [facility] [address], [place] [id number] eGFRAA 72 mL/min/1.73m2 Normal >60 [facility] Comment on above: Performed By: #### C BCAD, MG, URIC, LIPD, PHOS, CMP, DBIL #### [facility] [address], [place] [id number] eGFRNAA 59 mL/min/1.73m2 Low >60 [facility] Comment on above: Performed By: #### C BCAD, MG, URIC, LIPD, PHOS, CMP, DBIL #### [facility] [address], [place] [id number] Globulin (S) [Mass/Vol] 1.8 g/dL Low 1.9-3.7 [facility] Comment on above: Performed By: #### C BCAD, MG, URIC, LIPD, PHOS, CMP, DBIL #### [facility] [address], [place] [id number] Glucose [Mass/Vol] 121 mg/dL High 65-99 [place] Occupational Nurse Comment on above: Result Comment: For FASTING Glucose --- ADA reference ranges: Normal 65-99 mg/dl Prediabetes 100-125 Diabetes >/= 126 Performed By: #### C BCAD, MG, URIC, LIPD, PHOS, CMP, DBIL #### [facility] [address], [place] [id number] Potassium [Moles/Vol] 4.5 mmol/L Normal 3.5-5.5 [facility] Occupational Nurse Comment on above: Performed By: #### C BCAD, MG, URIC, LIPD, PHOS, CMP, DBIL #### [facility] [address], [place] [id number] Protein [Mass/Vol] 6.8 g/dL Normal 6.1-8.1 [place] Occupational Nurse Comment on above: Performed By: #### C BCAD, MG, URIC, LIPD, PHOS, CMP, DBIL #### [facility] [address], [place] [id number] Sodium [Moles/Vol] 143 mmol/L Normal 135-146 [facility] Nurse Comment on above: Performed By: #### C BCAD, MG, URIC, LIPD, PHOS, CMP, DBIL #### [facility] [address], [place] [id number] Urea nitrogen [Mass/Vol] 23 mg/dL Normal 7-25 [facility] Occupational Nurse Comment on above: Performed By: #### C BCAD, MG, URIC, LIPD, PHOS, CMP, DBIL #### [facility] [address], [place] [id number] Lipid Panelon 09-27-2021 Cholesterol [Mass/Vol] 131 mg/dL Normal 125-200 [facility] Occupational Nurse Comment on above: Result Comment: Low risk < 200mg/dL Borderline risk 201-239 mg/dl High risk > or equal to 240 Performed By: #### C BCAD, MG, URIC, LIPD, PHOS, CMP, DBIL #### [facility] [address], [place] [id number] Cholesterol in HDL [Mass/Vol] 43 mg/dL Normal >40 [facility] Occupational Nurse Comment on above: Result Comment: High Cardiovascular Risk HDL <40 mg/dL Low Cardiovascular Risk HDL > or equal to 60 mg/dl Performed By: #### C BCAD, MG, URIC, LIPD, PHOS, CMP, DBIL #### [facility] [address], [place] [id number] Cholesterol in LDL [Mass/Vol] 52 mg/dL Normal [facility] Occupational Nurse Comment on above: Result Comment: LDL ATP III CLASSIFICATION LDL less than 100 mg/dl Optimal LDL 100-129 mg/dl Near or above optimal LDL 130-159 Borderline high LDL 160-189 High LDL greater than 189 mg/dl Very High Performed By: #### C BCAD, MG, URIC, LIPD, PHOS, CMP, DBIL #### [facility] [address], [place] [id number] Cholesterol in VLDL [Mass/Vol] 36 mg/dL Normal [facility] Occupational Nurse Comment on above: Performed By: #### C BCAD, MG, URIC, LIPD, PHOS, CMP, DBIL #### [facility] [address], [place] [id number] Cholesterol.total/ Cholesterol in HDL [Mass ratio] 3 {ratio} Normal [facility] Occupational Nurse Comment on above: Performed By: #### C BCAD, MG, URIC, LIPD, PHOS, CMP, DBIL #### [facility] [address], [place] [id number] Triglyceride [Mass/Vol] 180 mg/dL High 30-150 [facility] Occupational Nurse Comment on above: Result Comment: TRIG ATPIII CLASSIFICATIONS TRIG less than 150 mg/dl Normal TRIG 150-199 mg/dl Borderline High TRIG 200-500 mg/dl High TRIG greather than 500 mg/dl Very High Performed By: #### C BCAD, MG, URIC, LIPD, PHOS, CMP, DBIL #### [facility] [address], [place] [id number] Magnesiumon 09-27-2021 Magnesium [Mass/Vol] 1.9 mg/dL Normal 1.5-2.3 [facility] Occupational Nurse Comment on above: Performed By: #### C BCAD, MG, URIC, LIPD, PHOS, CMP, DBIL #### [facility] [address], [place] [id number] Phosphoruson 09-27-2021 Phosphate [Mass/Vol] 3.6 mg/dL Normal 2.2-4.4 [facility] Occupational Nurse Comment on above: Performed By: #### C BCAD, MG, URIC, LIPD, PHOS, CMP, DBIL #### [facility] [address], [place] [id number] Uric Acidon 09-27-2021 URIC 6.5 mg/dL Normal 4.0-8.0 [facility] Occupational Nurse Comment on above: Result Comment: Refe rence range change 03/03/2017. Prior reference range F 2.4-5.7mg/dL. M 3.4-7.0 mg/dL. Performed By: #### C BCAD, MG, URIC, LIPD, PHOS, CMP, DBIL #### [facility] [address], [place] [id number] Bilirubin, Directon 08-25-19 22 DBIL <0.2 Normal [facility] Comment on above: Result Comment: Refe rence range change 03/03/2017. Prior reference range 0.1-0.3 mg/dL. Performed By: #### C BCAD, MG, URIC, LIPD, PHOS, CMP, DBIL #### [facility] [address], [place] [id number] Complete Blood Count with Au to Diffon 08-24-2021 Basophils (Bld) [#/Vol] 0.06 10*3/uL Normal 0.00-0.20 [facility] Occupational Nurse Comment on above: Performed By: #### C BCAD, MG, URIC, LIPD, PHOS, CMP, DBIL #### [facility] [address], [place] [id number] Basophils/100 WBC (Bld) 1.1 % Normal [facility] Occupational Nurse Comment on above: Performed By: #### C BCAD, MG, URIC, LIPD, PHOS, CMP, DBIL #### [facility] [address], [place] [id number] Eosinophils (Bld) [#/Vol] 0.10 10*3/uL Normal 0.02-0.50 [facility] Comment on above: Performed By: #### C BCAD, MG, URIC, LIPD, PHOS, CMP, DBIL #### [facility] [address], [place] [id number] Eosinophils/100 WBC (Bld) 1.8 % Normal [facility] Occupational Nurse Comment on above: Performed By: #### C BCAD, MG, URIC, LIPD, PHOS, CMP, DBIL #### [facility] [address], [place] [id number] Erythrocyte distribution width (RBC) [Ratio] 14.5 % Normal 11.0-15.0 [facility] Comment on above: Performed By: #### C BCAD, MG, URIC, LIPD, PHOS, CMP, DBIL #### [facility] [address], [place] [id number] Hematocrit (Bld) [Volume fraction] 50.4 % High 38.5-50.0 [facility] Comment on above: Performed By: #### C BCAD, MG, URIC, LIPD, PHOS, CMP, DBIL #### [facility] [address], [place] [id number] Hemoglobin (Bld) [Mass/Vol] 16.4 g/dL Normal 13.0-17.1 [facility] Occupational Nurse Comment on above: Performed By: #### C BCAD, MG, URIC, LIPD, PHOS, CMP, DBIL #### [facility] [address], [place] [id number] Lymphocytes (Bld) [#/Vol] 0.9 10*3/uL Normal 0.9-3.9 [facility] Comment on above: Performed By: #### C BCAD, MG, URIC, LIPD, PHOS, CMP, DBIL #### [facility] [address], [place] [id number] Lymphocytes/100 WBC (Bld) 15.2 % Normal [facility] Comment on above: Performed By: #### C BCAD, MG, URIC, LIPD, PHOS, CMP, DBIL #### [facility] [address], [place] [id number] MCH (RBC) [Entitic mass] 30.5 pg Normal 27.0-33.0 [facility] Comment on above: Performed By: #### C BCAD, MG, URIC, LIPD, PHOS, CMP, DBIL #### [facility] [address], [place] [id number] MCHC (RBC) [Mass/Vol] 32.5 g/dL Normal 32.0-36.0 [facility] Comment on above: Performed By: #### C BCAD, MG, URIC, LIPD, PHOS, CMP, DBIL #### [facility] [address], [place] [id number] MCV (RBC) [Entitic vol] 94 fL Normal 80-100 [facility] Occupational Nurse Comment on above: Performed By: #### C BCAD, MG, URIC, LIPD, PHOS, CMP, DBIL #### [facility] [address], [place] [id number] Monocytes (Bld) [#/Vol] 0.7 10*3/uL Normal 0.2-0.9 [facility] Special[facility] Comment on above: Performed By: #### C BCAD, MG, URIC, LIPD, PHOS, CMP, DBIL #### [facility] [address], [place] [id number] Monocytes/100 WBC (Bld) 12.7 % Normal [facility] Occupational Nurse Comment on above: Performed By: #### C BCAD, MG, URIC, LIPD, PHOS, CMP, DBIL #### [facility] [address], [place] [id number] Neutrophils (Bld) [#/Vol] 3.9 10*3/uL Normal 1.5-7.8 [facility] Occupational Nurse Comment on above: Performed By: #### C BCAD, MG, URIC, LIPD, PHOS, CMP, DBIL #### [facility] [address], [place] [id number] Neutrophils/100 WBC (Bld) 68.7 % Normal [facility] Occupational Nurse Comment on above: Performed By: #### C BCAD, MG, URIC, LIPD, PHOS, CMP, DBIL #### [facility] [address], [place] [id number] Platelet mean volume (Bld) [Entitic vol] 11.20 fL Normal 7.50-12.50 [facility] Occupational Nurse Comment on above: Performed By: #### C BCAD, MG, URIC, LIPD, PHOS, CMP, DBIL #### [facility] [address], [place] [id number] Platelets (Bld) [#/Vol] 230 10*3/uL Normal 140-400 [facility] Occupational Nurse Comment on above: Performed By: #### C BCAD, MG, URIC, LIPD, PHOS, CMP, DBIL #### [facility] [address], [place] [id number] RBC (Bld) [#/Vol] 5.38 10*6/uL Normal 4.20-5.80 [facility] Occupational Nurse Comment on above: Performed By: #### C BCAD, MG, URIC, LIPD, PHOS, CMP, DBIL #### [facility] [address], [place] [id number] RDW-SD 49.1 fL Normal 37.0-50.0 [facility] Occupational Nurse Comment on above: Performed By: #### C BCAD, MG, URIC, LIPD, PHOS, CMP, DBIL #### [facility] [address], [place] [id number] WBC (Bld) [#/Vol] 5.6 10*3/uL Normal 3.8-11.0 [facility] Occupational Nurse Comment on above: Performed By: #### C BCAD, MG, URIC, LIPD, PHOS, CMP, DBIL #### [facility] [address], [place] [id number] [facility] 08-24-2021 Albumin [Mass/Vol] 5.0 g/dL Normal 3.6-5.1 [facility] Occupational Nurse Comment on above: Performed By: #### C BCAD, MG, URIC, LIPD, PHOS, CMP, DBIL #### [facility] [address], [place] [id number] Albumin/Globulin [Mass ratio] 2.6 {ratio} High 1.0-2.5 [facility] Specialist Comment on above: Performed By: #### C BCAD, MG, URIC, LIPD, PHOS, CMP, DBIL #### [facility] [address], [place] [id number] ALP [Catalytic activity/Vol] 75 U/L Normal 40-129 [facility] Specialist Comment on above: Performed By: #### C BCAD, MG, URIC, LIPD, PHOS, CMP, DBIL #### [facility] [address], [place] [id number] ALT [Catalytic activity/Vol] 30 U/L Normal 9-46 [facility] Special[facility] Comment on above: Result Comment: 03/17 Female reference range changed. Performed By: #### C BCAD, MG, URIC, LIPD, PHOS, CMP, DBIL #### [facility] [address], [place] [id number] Anion gap [Moles/Vol] 18 mmol/L Normal 12-20 [facility] Special[facility] Comment on above: Result Comment: Effe ctive 04/22/2019 reference range changed. Performed By: #### C BCAD, MG, URIC, LIPD, PHOS, CMP, DBIL #### [facility] [address], [place] [id number] AST [Catalytic activity/Vol] 26 U/L Normal 10-40 [facility] Special[facility] Comment on above: Performed By: #### C BCAD, MG, URIC, LIPD, PHOS, CMP, DBIL #### [facility] [address], [place] [id number] Bilirubin [Mass/Vol] 0.67 mg/dL Normal 0.30-1.20 [facility] Special[facility] Comment on above: Performed By: #### C BCAD, MG, URIC, LIPD, PHOS, CMP, DBIL #### [facility] [address], [place] [id number] BUN/CREA 19 Ratio Normal 6-22 [facility] Comment on above: Performed By: #### C BCAD, MG, URIC, LIPD, PHOS, CMP, DBIL #### [facility] [address], [place] [id number] Calcium [Mass/Vol] 9.9 mg/dL Normal 8.6-10.2 [facility] Comment on above: Performed By: #### C BCAD, MG, URIC, LIPD, PHOS, CMP, DBIL #### [facility] [address], [place] [id number] Chloride [Moles/Vol] 103 mmol/L Normal 98-107 [facility] Comment on above: Performed By: #### C BCAD, MG, URIC, LIPD, PHOS, CMP, DBIL #### [facility] [address], [place] [id number] CO2 [Moles/Vol] 25 mmol/L Normal 20-31 [facility] Comment on above: Performed By: #### C BCAD, MG, URIC, LIPD, PHOS, CMP, DBIL #### [facility] [address], [place] [id number] Creatinine [Mass/Vol] 1.1 mg/dL Normal 0.7-1.4 [facility] Comment on above: Performed By: #### C BCAD, MG, URIC, LIPD, PHOS, CMP, DBIL #### [facility] [address], [place] [id number] eGFRAA 81 mL/min/1.73m2 Normal >60 [facility] Comment on above: Performed By: #### C BCAD, MG, URIC, LIPD, PHOS, CMP, DBIL #### [facility] [address], [place] [id number] eGFRNAA 67 mL/min/1.73m2 Normal >60 [facility] Comment on above: Performed By: #### C BCAD, MG, URIC, LIPD, PHOS, CMP, DBIL #### [facility] [address], [place] [id number] Globulin (S) [Mass/Vol] 1.9 g/dL Normal 1.9-3.7 [facility] Comment on above: Performed By: #### C BCAD, MG, URIC, LIPD, PHOS, CMP, DBIL #### [facility] [address], [place] [id number] Glucose [Mass/Vol] 125 mg/dL High 65-99 [facility] [place] [facility] Comment on above: Result Comment: For FASTING Glucose --- ADA reference ranges: Normal 65-99 mg/dl Prediabetes 100-125 Diabetes >/= 126 Performed By: #### C BCAD, MG, URIC, LIPD, PHOS, CMP, DBIL #### [facility] [address], [place] [id number] Potassium [Moles/Vol] 4.2 mmol/L Normal 3.5-5.5 [facility] Occupational Nurse Comment on above: Performed By: #### C BCAD, MG, URIC, LIPD, PHOS, CMP, DBIL #### [facility] [address], [place] [id number] Protein [Mass/Vol] 6.9 g/dL Normal 6.1-8.1 [facility] [place] [facility] Comment on above: Performed By: #### C BCAD, MG, URIC, LIPD, PHOS, CMP, DBIL #### [facility] [address], [place] [id number] Sodium [Moles/Vol] 141 mmol/L Normal 135-146 [facility] [place] [facility] Comment on above: Performed By: #### C BCAD, MG, URIC, LIPD, PHOS, CMP, DBIL #### [facility] [address], [place] [id number] Urea nitrogen [Mass/Vol] 22 mg/dL Normal 7-25 [facility] Occupational Nurse Comment on above: Performed By: #### C BCAD, MG, URIC, LIPD, PHOS, CMP, DBIL #### [facility] [address], [place] [id number] Hemoglobin A1Con 08-24-2021 EAG 134.11 Normal [facility] Occupational Nurse Comment on above: Performed By: #### C BCAD, MG, URIC, LIPD, PHOS, CMP, DBIL #### [facility] [address], [place] [id number] HbA1c (Bld) [Mass fraction] 6.3 % High 4.0-6.0 [place] [facility] Comment on above: Performed By: #### C BCAD, MG, URIC, LIPD, PHOS, CMP, DBIL #### [facility] [address], [place] [id number] Lipid Panelon 08-24-2021 Cholesterol [Mass/Vol] 110 mg/dL Low 125-200 [facility] Occupational Nurse Comment on above: Result Comment: Low risk < 200mg/dL Borderline risk 201-239 mg/dl High risk > or equal to 240 Performed By: #### C BCAD, MG, URIC, LIPD, PHOS, CMP, DBIL #### [facility] [address], [place] [id number] Cholesterol in HDL [Mass/Vol] 38 mg/dL Low >40 [facility] Occupational Nurse Comment on above: Result Comment: High Cardiovascular Risk HDL <40 mg/dL Low Cardiovascular Risk HDL > or equal to 60 mg/dl Performed By: #### C BCAD, MG, URIC, LIPD, PHOS, CMP, DBIL #### [facility] [address], [place] [id number] Cholesterol in LDL [Mass/Vol] 46 mg/dL Normal [facility] Occupational Nurse Comment on above: Result Comment: LDL ATP III CLASSIFICATION LDL less than 100 mg/dl Optimal LDL 100-129 mg/dl Near or above optimal LDL 130-159 Borderline high LDL 160-189 High LDL greater than 189 mg/dl Very High Performed By: #### C BCAD, MG, URIC, LIPD, PHOS, CMP, DBIL #### [facility] [address], [place] [id number] Cholesterol in VLDL [Mass/Vol] 26 mg/dL Normal [facility] Occupational Nurse Comment on above: Performed By: #### C BCAD, MG, URIC, LIPD, PHOS, CMP, DBIL #### [facility] [address], [place] [id number] Cholesterol.total/ Cholesterol in HDL [Mass ratio] 3 {ratio} Normal [facility] Occupational Nurse Comment on above: Performed By: #### C BCAD, MG, URIC, LIPD, PHOS, CMP, DBIL #### [facility] [address], [place] [id number] Triglyceride [Mass/Vol] 131 mg/dL Normal 30-150 [facility] Occupational Nurse Comment on above: Result Comment: TRIG ATPIII CLASSIFICATIONS TRIG less than 150 mg/dl Normal TRIG 150-199 mg/dl Borderline High TRIG 200-500 mg/dl High TRIG greather than 500 mg/dl Very High Performed By: #### C BCAD, MG, URIC, LIPD, PHOS, CMP, DBIL #### [facility] [address], [place] [id number] Magnesiumon 08-24-2021 Magnesium [Mass/Vol] 2.0 mg/dL Normal 1.5-2.3 [facility] Occupational Nurse Comment on above: Performed By: #### C BCAD, MG, URIC, LIPD, PHOS, CMP, DBIL #### [facility] [address], [place] [id number] Phosphoruson 08-24-2021 Phosphate [Mass/Vol] 3.5 mg/dL Normal 2.2-4.4 [facility]ational Nurse Comment on above: Performed By: #### C BCAD, MG, URIC, LIPD, PHOS, CMP, DBIL #### [facility] [address], [place] [id number] Uric Acidon 08-24-2021 URIC 6.6 mg/dL Normal 4.0-8.0 [facility] Occupational Nurse Comment on above: Result Comment: Refe rence range change 03/03/2017. Prior reference range F 2.4-5.7mg/dL. M 3.4-7.0 mg/dL. Performed By: #### C BCAD, MG, URIC, LIPD, PHOS, CMP, DBIL #### [facility] [address], [place] [id number] Bilirubin, Directon 07-30-19 22 DBIL <0.2 Normal [facility]ational Nurse Comment on above: Result Comment: Refe rence range change 03/03/2017. Prior reference range 0.1-0.3 mg/dL. Performed By: #### C BCAD, MG, URIC, LIPD, PHOS, CMP, DBIL #### [facility] [address], [place] [id number] Complete Blood Count with Au to Diffon 07-29-2021 Basophils (Bld) [#/Vol] 0.07 10*3/uL Normal 0.00-0.20 [facility]ational Nurse Comment on above: Performed By: #### C BCAD, MG, URIC, LIPD, PHOS, CMP, DBIL #### [facility] [address], [place] [id number] Basophils/100 WBC (Bld) 1.1 % Normal [facility] Occupational Nurse Comment on above: Performed By: #### C BCAD, MG, URIC, LIPD, PHOS, CMP, DBIL #### [facility] [address], [place] [id number] Eosinophils (Bld) [#/Vol] 0.15 10*3/uL Normal 0.02-0.50 [facility]ational Nurse Comment on above: Performed By: #### C BCAD, MG, URIC, LIPD, PHOS, CMP, DBIL #### [facility] [address], [place] [id number] Eosinophils/100 WBC (Bld) 2.4 % Normal [facility]ational Nurse Comment on above: Performed By: #### C BCAD, MG, URIC, LIPD, PHOS, CMP, DBIL #### [facility] [address], [place] [id number] Erythrocyte distribution width (RBC) [Ratio] 14.0 % Normal 11.0-15.0 [facility]ational Nurse Comment on above: Performed By: #### C BCAD, MG, URIC, LIPD, PHOS, CMP, DBIL #### [facility] [address], [place] [id number] Hematocrit (Bld) [Volume fraction] 50.3 % High 38.5-50.0 [facility] Occupational Nurse Comment on above: Performed By: #### C BCAD, MG, URIC, LIPD, PHOS, CMP, DBIL #### [facility] [address], [place] [id number] Hemoglobin (Bld) [Mass/Vol] 16.5 g/dL Normal 13.0-17.1 [facility]ational Nurse Comment on above: Performed By: #### C BCAD, MG, URIC, LIPD, PHOS, CMP, DBIL #### [facility] [address], [place] [id number] Lymphocytes (Bld) [#/Vol] 0.9 10*3/uL Normal 0.9-3.9 [facility] Comment on above: Performed By: #### C BCAD, MG, URIC, LIPD, PHOS, CMP, DBIL #### [facility] [address], [place] [id number] Lymphocytes/100 WBC (Bld) 13.4 % Normal [facility] Comment on above: Performed By: #### C BCAD, MG, URIC, LIPD, PHOS, CMP, DBIL #### [facility] [address], [place] [id number] MCH (RBC) [Entitic mass] 29.9 pg Normal 27.0-33.0 [facility] Comment on above: Performed By: #### C BCAD, MG, URIC, LIPD, PHOS, CMP, DBIL #### [facility] [address], [place] [id number] MCHC (RBC) [Mass/Vol] 32.8 g/dL Normal 32.0-36.0 [facility] Comment on above: Performed By: #### C BCAD, MG, URIC, LIPD, PHOS, CMP, DBIL #### [facility] [address], [place] [id number] MCV (RBC) [Entitic vol] 91 fL Normal 80-100 [facility] Comment on above: Performed By: #### C BCAD, MG, URIC, LIPD, PHOS, CMP, DBIL #### [facility] [address], [place] [id number] Monocytes (Bld) [#/Vol] 0.5 10*3/uL Normal 0.2-0.9 [facility] Comment on above: Performed By: #### C BCAD, MG, URIC, LIPD, PHOS, CMP, DBIL #### [facility] [address], [place] [id number] Monocytes/100 WBC (Bld) 8.5 % Normal [place] [facility] Comment on above: Performed By: #### C BCAD, MG, URIC, LIPD, PHOS, CMP, DBIL #### [facility] [address], [place] [id number] Neutrophils (Bld) [#/Vol] 4.7 10*3/uL Normal 1.5-7.8 [facility] Comment on above: Performed By: #### C BCAD, MG, URIC, LIPD, PHOS, CMP, DBIL #### [facility] [address], [place] [id number] Neutrophils/100 WBC (Bld) 73.8 % Normal [facility] Occupational Nurse Comment on above: Performed By: #### C BCAD, MG, URIC, LIPD, PHOS, CMP, DBIL #### [facility] [address], [place] [id number] Platelet mean volume (Bld) [Entitic vol] 10.40 fL Normal 7.50-12.50 [facility] Occupational Nurse Comment on above: Performed By: #### C BCAD, MG, URIC, LIPD, PHOS, CMP, DBIL #### [facility] [address], [place] [id number] Platelets (Bld) [#/Vol] 266 10*3/uL Normal 140-400 [facility] Occupational Nurse Comment on above: Performed By: #### C BCAD, MG, URIC, LIPD, PHOS, CMP, DBIL #### [facility] [address], [place] [id number] RBC (Bld) [#/Vol] 5.51 10*6/uL Normal 4.20-5.80 [facility] Occupational Nurse Comment on above: Performed By: #### C BCAD, MG, URIC, LIPD, PHOS, CMP, DBIL #### [facility] [address], [place] [id number] RDW-SD 47.4 fL Normal 37.0-50.0 [facility] Occupational Nurse Comment on above: Performed By: #### C BCAD, MG, URIC, LIPD, PHOS, CMP, DBIL #### [facility] [address], [place] [id number] WBC (Bld) [#/Vol] 6.3 10*3/uL Normal 3.8-11.0 [facility] [place] [facility] Comment on above: Performed By: #### C BCAD, MG, URIC, LIPD, PHOS, CMP, DBIL #### [facility] [address], [place] [id number] Comprehensive Metabolic Pane nitin 07-29-2021 Albumin [Mass/Vol] 5.0 g/dL Normal 3.6-5.1 [facility] [place] [facility] Comment on above: Performed By: #### C BCAD, MG, URIC, LIPD, PHOS, CMP, DBIL #### [facility] [address], [place] [id number] Albumin/Globulin [Mass ratio] 2.6 {ratio} High 1.0-2.5 [facility] Comment on above: Performed By: #### C BCAD, MG, URIC, LIPD, PHOS, CMP, DBIL #### [facility] [address], [place] [id number] ALP [Catalytic activity/Vol] 73 U/L Normal 40-129 [facility]ational Nurse Comment on above: Performed By: #### C BCAD, MG, URIC, LIPD, PHOS, CMP, DBIL #### [facility] [address], [place] [id number] ALT [Catalytic activity/Vol] 27 U/L Normal 9-46 [facility]ational Nurse Comment on above: Result Comment: 03/17 Female reference range changed. Performed By: #### C BCAD, MG, URIC, LIPD, PHOS, CMP, DBIL #### [facility] [address], [place] [id number] Anion gap [Moles/Vol] 18 mmol/L Normal 12-20 [facility]ational Nurse Comment on above: Result Comment: Effe ctive 04/22/2019 reference range changed. Performed By: #### C BCAD, MG, URIC, LIPD, PHOS, CMP, DBIL #### [facility] [address], [place] [id number] AST [Catalytic activity/Vol] 23 U/L Normal 10-40 [place] [facility] Comment on above: Performed By: #### C BCAD, MG, URIC, LIPD, PHOS, CMP, DBIL #### [facility] [address], [place] [id number] Bilirubin [Mass/Vol] 0.68 mg/dL Normal 0.30-1.20 [facility] Comment on above: Performed By: #### C BCAD, MG, URIC, LIPD, PHOS, CMP, DBIL #### [facility] [address], [place] [id number] BUN/CREA 16 Ratio Normal 6-22 [facility] Comment on above: Performed By: #### C BCAD, MG, URIC, LIPD, PHOS, CMP, DBIL #### [facility] [address], [place] [id number] Calcium [Mass/Vol] 10.0 mg/dL Normal 8.6-10.2 [facility] Comment on above: Performed By: #### C BCAD, MG, URIC, LIPD, PHOS, CMP, DBIL #### [facility] [address], [place] [id number] Chloride [Moles/Vol] 103 mmol/L Normal 98-107 [facility] Comment on above: Performed By: #### C BCAD, MG, URIC, LIPD, PHOS, CMP, DBIL #### [facility] [address], [place] [id number] CO2 [Moles/Vol] 25 mmol/L Normal 20-31 [facility] Comment on above: Performed By: #### C BCAD, MG, URIC, LIPD, PHOS, CMP, DBIL #### [facility] [address], [place] [id number] Creatinine [Mass/Vol] 1.1 mg/dL Normal 0.7-1.4 [facility] Comment on above: Performed By: #### C BCAD, MG, URIC, LIPD, PHOS, CMP, DBIL #### [facility] [address], [place] [id number] eGFRAA 80 mL/min/1.73m2 Normal >60 [facility] Special[facility] Comment on above: Performed By: #### C BCAD, MG, URIC, LIPD, PHOS, CMP, DBIL #### [facility] [address], [place] [id number] eGFRNAA 66 mL/min/1.73m2 Normal >60 [facility] Occupational Nurse Comment on above: Performed By: #### C BCAD, MG, URIC, LIPD, PHOS, CMP, DBIL #### [facility] [address], [place] [id number] Globulin (S) [Mass/Vol] 1.9 g/dL Normal 1.9-3.7 [facility] Occupational Nurse Comment on above: Performed By: #### C BCAD, MG, URIC, LIPD, PHOS, CMP, DBIL #### [facility] [address], [place] [id number] Glucose [Mass/Vol] 109 mg/dL High 65-99 [facility] [place] [facility] Comment on above: Result Comment: For FASTING Glucose --- ADA reference ranges: Normal 65-99 mg/dl Prediabetes 100-125 Diabetes >/= 126 Performed By: #### C BCAD, MG, URIC, LIPD, PHOS, CMP, DBIL #### [facility] [address], [place] [id number] Potassium [Moles/Vol] 4.7 mmol/L Normal 3.5-5.5 [facility] Occupational Nurse Comment on above: Performed By: #### C BCAD, MG, URIC, LIPD, PHOS, CMP, DBIL #### [facility] [address], [place] [id number] Protein [Mass/Vol] 6.9 g/dL Normal 6.1-8.1 [facility] [place] [facility] Comment on above: Performed By: #### C BCAD, MG, URIC, LIPD, PHOS, CMP, DBIL #### [facility] [address], [place] [id number] Sodium [Moles/Vol] 141 mmol/L Normal 135-146 [facility] [place] [facility] Comment on above: Performed By: #### C BCAD, MG, URIC, LIPD, PHOS, CMP, DBIL #### [facility] [address], [place] [id number] Urea nitrogen [Mass/Vol] 18 mg/dL Normal 7-25 [facility] Occupational Nurse Comment on above: Performed By: #### C BCAD, MG, URIC, LIPD, PHOS, CMP, DBIL #### [facility] [address], [place] [id number] Lipid Panelon 07-29-2021 Cholesterol [Mass/Vol] 121 mg/dL Low 125-200 [facility] Occupational Nurse Comment on above: Result Comment: Low risk < 200mg/dL Borderline risk 201-239 mg/dl High risk > or equal to 240 Performed By: #### C BCAD, MG, URIC, LIPD, PHOS, CMP, DBIL #### [facility] [address], [place] [id number] Cholesterol in HDL [Mass/Vol] 41 mg/dL Normal >40 [facility] Occupational Nurse Comment on above: Result Comment: High Cardiovascular Risk HDL <40 mg/dL Low Cardiovascular Risk HDL > or equal to 60 mg/dl Performed By: #### C BCAD, MG, URIC, LIPD, PHOS, CMP, DBIL #### [facility] [address], [place] [id number] Cholesterol in LDL [Mass/Vol] 56 mg/dL Normal [facility] Occupational Nurse Comment on above: Result Comment: LDL ATP III CLASSIFICATION LDL less than 100 mg/dl Optimal LDL 100-129 mg/dl Near or above optimal LDL 130-159 Borderline high LDL 160-189 High LDL greater than 189 mg/dl Very High Performed By: #### C BCAD, MG, URIC, LIPD, PHOS, CMP, DBIL #### [facility] [address], [place] [id number] Cholesterol in VLDL [Mass/Vol] 24 mg/dL Normal [facility] Occupational Nurse Comment on above: Performed By: #### C BCAD, MG, URIC, LIPD, PHOS, CMP, DBIL #### [facility] [address], [place] [id number] Cholesterol.total/ Cholesterol in HDL [Mass ratio] 3 {ratio} Normal [facility] Occupational Nurse Comment on above: Performed By: #### C BCAD, MG, URIC, LIPD, PHOS, CMP, DBIL #### [facility] [address], [place] [id number] Triglyceride [Mass/Vol] 118 mg/dL Normal 30-150 [facility] Occupational Nurse Comment on above: Result Comment: TRIG ATPIII CLASSIFICATIONS TRIG less than 150 mg/dl Normal TRIG 150-199 mg/dl Borderline High TRIG 200-500 mg/dl High TRIG greather than 500 mg/dl Very High Performed By: #### C BCAD, MG, URIC, LIPD, PHOS, CMP, DBIL #### [facility] [address], [place] [id number] Magnesiumon 07-29-2021 Magnesium [Mass/Vol] 2.0 mg/dL Normal 1.5-2.3 [facility] Occupational Nurse Comment on above: Performed By: #### C BCAD, MG, URIC, LIPD, PHOS, CMP, DBIL #### [facility] [address], [place] [id number] Phosphoruson 07-29-2021 Phosphate [Mass/Vol] 3.3 mg/dL Normal 2.2-4.4 [facility] Occupational Nurse Comment on above: Performed By: #### C BCAD, MG, URIC, LIPD, PHOS, CMP, DBIL #### [facility] [address], [place] [id number] Q - TACROLIMUSon 07-29-2021 TACROLIMUS, HIGHLY SENSITIVE, LC/MS/MS 6.3 mcg/L Normal [facility] Occupational Nurse Comment on above: Order Comment: [facility] performed at: Q, [facility], [address] [place] [address], [address] [place] [address], [id number], Manual Qa Tester: Shaheed Bazzi MDQuest Collection Date/Time: [id number] Results Received Date/Time: [id number] Reported Date/Time: Result Comment: No d efinitive therapeutic or toxic ranges have been established. Optimal blood drug levels are influenced by type of transplant, patient response, time post- transplant, co-administration of other drugs, and drug formulation. The following trough range is a suggested guideline: 5.0-20.0 mcg/L. This test was developed and its analytical performance characteristics have been determined by [email or web address]. It has not been cleared or approved by the FDA. This assay has been validated pursuant to the CLIA regulations and is used for clinical purposes. Performed By: #### C BCAD, MG, URIC, LIPD, PHOS, CMP, DBIL #### [facility] [address], [place] [id number] Uric Acidon 07-29-2021 URIC 6.1 mg/dL Normal 4.0-8.0 [facility] Special[facility] Comment on above: Result Comment: Refe rence range change 03/03/2017. Prior reference range F 2.4-5.7mg/dL. M 3.4-7.0 mg/dL. Performed By: #### C BCAD, MG, URIC, LIPD, PHOS, CMP, DBIL #### [facility] [address], [place] [id number] Bilirubin, Directon 06-29-19 22 DBIL <0.2 Normal [facility] Special[facility] Comment on above: Result Comment: Refe rence range change 03/03/2017. Prior reference range 0.1-0.3 mg/dL. Performed By: #### C BCAD, MG, URIC, LIPD, PHOS, CMP, DBIL #### [facility] [address], [place] [id number] Complete Blood Count with Au to Diffon 06-28-2021 Basophils (Bld) [#/Vol] 0.05 10*3/uL Normal 0.00-0.20 [facility] Special[facility] Comment on above: Performed By: #### C BCAD, MG, URIC, LIPD, PHOS, CMP, DBIL #### [facility] [address], [place] [id number] Basophils/100 WBC (Bld) 0.8 % Normal [facility] Specialist Comment on above: Performed By: #### C BCAD, MG, URIC, LIPD, PHOS, CMP, DBIL #### [facility] [address], [place] [id number] Eosinophils (Bld) [#/Vol] 0.10 10*3/uL Normal 0.02-0.50 [facility] Specialist Comment on above: Performed By: #### C BCAD, MG, URIC, LIPD, PHOS, CMP, DBIL #### [facility] [address], [place] [id number] Eosinophils/100 WBC (Bld) 1.6 % Normal [facility] Specialist Comment on above: Performed By: #### C BCAD, MG, URIC, LIPD, PHOS, CMP, DBIL #### [facility] [address], [place] [id number] Erythrocyte distribution width (RBC) [Ratio] 14.6 % Normal 11.0-15.0 [facility] Specialist Comment on above: Performed By: #### C BCAD, MG, URIC, LIPD, PHOS, CMP, DBIL #### [facility] [address], [place] [id number] Hematocrit (Bld) [Volume fraction] 50.7 % High 38.5-50.0 [facility] Special[facility] Comment on above: Performed By: #### C BCAD, MG, URIC, LIPD, PHOS, CMP, DBIL #### [facility] [address], [place] [id number] Hemoglobin (Bld) [Mass/Vol] 16.2 g/dL Normal 13.0-17.1 [facility] Special[facility] Comment on above: Performed By: #### C BCAD, MG, URIC, LIPD, PHOS, CMP, DBIL #### [facility] [address], [place] [id number] Lymphocytes (Bld) [#/Vol] 1.0 10*3/uL Normal 0.9-3.9 [facility] Special[facility] Comment on above: Performed By: #### C BCAD, MG, URIC, LIPD, PHOS, CMP, DBIL #### [facility] [address], [place] [id number] Lymphocytes/100 WBC (Bld) 16.2 % Normal [facility] Specialist Comment on above: Performed By: #### C BCAD, MG, URIC, LIPD, PHOS, CMP, DBIL #### [facility] [address], [place] [id number] MCH (RBC) [Entitic mass] 30.0 pg Normal 27.0-33.0 [facility] Special[facility] Comment on above: Performed By: #### C BCAD, MG, URIC, LIPD, PHOS, CMP, DBIL #### [facility] [address], [place] [id number] MCHC (RBC) [Mass/Vol] 32.0 g/dL Normal 32.0-36.0 [facility] Special[facility] Comment on above: Performed By: #### C BCAD, MG, URIC, LIPD, PHOS, CMP, DBIL #### [facility] [address], [place] [id number] MCV (RBC) [Entitic vol] 94 fL Normal 80-100 [facility] Special[facility] Comment on above: Performed By: #### C BCAD, MG, URIC, LIPD, PHOS, CMP, DBIL #### [facility] [address], [place] [id number] Monocytes (Bld) [#/Vol] 0.9 10*3/uL Normal 0.2-0.9 [facility] Special[facility] Comment on above: Performed By: #### C BCAD, MG, URIC, LIPD, PHOS, CMP, DBIL #### [facility] [address], [place] [id number] Monocytes/100 WBC (Bld) 13.4 % Normal [facility] Special[facility] Comment on above: Performed By: #### C BCAD, MG, URIC, LIPD, PHOS, CMP, DBIL #### [facility] [address], [place] [id number] Neutrophils (Bld) [#/Vol] 4.3 10*3/uL Normal 1.5-7.8 [facility] Special[facility] Comment on above: Performed By: #### C BCAD, MG, URIC, LIPD, PHOS, CMP, DBIL #### [facility] [address], [place] [id number] Neutrophils/100 WBC (Bld) 67.7 % Normal [facility] Special[facility] Comment on above: Performed By: #### C BCAD, MG, URIC, LIPD, PHOS, CMP, DBIL #### [facility] [address], [place] [id number] Platelet mean volume (Bld) [Entitic vol] 11.00 fL Normal 7.50-12.50 [facility] Occupational Nurse Comment on above: Performed By: #### C BCAD, MG, URIC, LIPD, PHOS, CMP, DBIL #### [facility] [address], [place] [id number] Platelets (Bld) [#/Vol] 239 10*3/uL Normal 140-400 [facility] Occupational Nurse Comment on above: Performed By: #### C BCAD, MG, URIC, LIPD, PHOS, CMP, DBIL #### [facility] [address], [place] [id number] RBC (Bld) [#/Vol] 5.40 10*6/uL Normal 4.20-5.80 [facility] Occupational Nurse Comment on above: Performed By: #### C BCAD, MG, URIC, LIPD, PHOS, CMP, DBIL #### [facility] [address], [place] [id number] RDW-SD 50.2 fL High 37.0-50.0 [facility] Occupational Nurse Comment on above: Performed By: #### C BCAD, MG, URIC, LIPD, PHOS, CMP, DBIL #### [facility] [facility] [address], [place] [id number] WBC (Bld) [#/Vol] 6.4 10*3/uL Normal 3.8-11.0 [place] [facility] [place] Occupational Nurse Comment on above: Performed By: #### C BCAD, MG, URIC, LIPD, PHOS, CMP, DBIL #### [facility] [address], [place] [id number] Comprehensive Metabolic Pane nitin 06-28-2021 Albumin [Mass/Vol] 4.9 g/dL Normal 3.6-5.1 [place] [facility] [facility]ational Nurse Comment on above: Performed By: #### C BCAD, MG, URIC, LIPD, PHOS, CMP, DBIL #### [facility] [address], [place] [id number] Albumin/Globulin [Mass ratio] 3.3 {ratio} High 1.0-2.5 [place] [facility] Comment on above: Performed By: #### C BCAD, MG, URIC, LIPD, PHOS, CMP, DBIL #### [facility] [address], [place] [id number] ALP [Catalytic activity/Vol] 73 U/L Normal 40-129 [facility] Special[facility] Comment on above: Performed By: #### C BCAD, MG, URIC, LIPD, PHOS, CMP, DBIL #### [facility] [address], [place] [id number] ALT [Catalytic activity/Vol] 26 U/L Normal 9-46 [facility] Comment on above: Result Comment: 03/17 Female reference range changed. Performed By: #### C BCAD, MG, URIC, LIPD, PHOS, CMP, DBIL #### [facility] [address], [place] [id number] Anion gap [Moles/Vol] 16 mmol/L Normal 12-20 [facility] Comment on above: Result Comment: Effe ctive 04/22/2019 reference range changed. Performed By: #### C BCAD, MG, URIC, LIPD, PHOS, CMP, DBIL #### [facility] [address], [place] [id number] AST [Catalytic activity/Vol] 23 U/L Normal 10-40 [facility] Special[facility] Comment on above: Performed By: #### C BCAD, MG, URIC, LIPD, PHOS, CMP, DBIL #### [facility] [address], [place] [id number] Bilirubin [Mass/Vol] 0.76 mg/dL Normal 0.30-1.20 [facility] Comment on above: Performed By: #### C BCAD, MG, URIC, LIPD, PHOS, CMP, DBIL #### [facility] [address], [place] [id number] BUN/CREA 15 Ratio Normal 6-22 [facility] Comment on above: Performed By: #### C BCAD, MG, URIC, LIPD, PHOS, CMP, DBIL #### [facility] [address], [place] [id number] Calcium [Mass/Vol] 9.8 mg/dL Normal 8.6-10.2 [facility] Comment on above: Performed By: #### C BCAD, MG, URIC, LIPD, PHOS, CMP, DBIL #### [facility] [address], [place] [id number] Chloride [Moles/Vol] 103 mmol/L Normal 98-107 [facility] Comment on above: Performed By: #### C BCAD, MG, URIC, LIPD, PHOS, CMP, DBIL #### [facility] [address], [place] [id number] CO2 [Moles/Vol] 26 mmol/L Normal 20-31 [facility] Comment on above: Performed By: #### C BCAD, MG, URIC, LIPD, PHOS, CMP, DBIL #### [facility] [address], [place] [id number] Creatinine [Mass/Vol] 1.1 mg/dL Normal 0.7-1.4 [facility] Comment on above: Performed By: #### C BCAD, MG, URIC, LIPD, PHOS, CMP, DBIL #### [facility] [address], [place] [id number] eGFRAA 80 mL/min/1.73m2 Normal >60 [facility] Comment on above: Performed By: #### C BCAD, MG, URIC, LIPD, PHOS, CMP, DBIL #### [facility] [address], [place] [id number] eGFRNAA 66 mL/min/1.73m2 Normal >60 [facility] Comment on above: Performed By: #### C BCAD, MG, URIC, LIPD, PHOS, CMP, DBIL #### [facility] [address], [place] [id number] Globulin (S) [Mass/Vol] 1.5 g/dL Low 1.9-3.7 [facility] Comment on above: Performed By: #### C BCAD, MG, URIC, LIPD, PHOS, CMP, DBIL #### [facility] [address], [place] [id number] Glucose [Mass/Vol] 130 mg/dL High 65-99 [place] [facility] [facility]ational Nurse Comment on above: Result Comment: For FASTING Glucose --- ADA reference ranges: Normal 65-99 mg/dl Prediabetes 100-125 Diabetes >/= 126 Performed By: #### C BCAD, MG, URIC, LIPD, PHOS, CMP, DBIL #### [facility] [address], [place] [id number] Potassium [Moles/Vol] 4.6 mmol/L Normal 3.5-5.5 [facility] Occupational Nurse Comment on above: Performed By: #### C BCAD, MG, URIC, LIPD, PHOS, CMP, DBIL #### [facility] [address], [place] [id number] Protein [Mass/Vol] 6.4 g/dL Normal 6.1-8.1 [facility] [place] [facility]ational Nurse Comment on above: Performed By: #### C BCAD, MG, URIC, LIPD, PHOS, CMP, DBIL #### [facility] [address], [place] [id number] Sodium [Moles/Vol] 140 mmol/L Normal 135-146 [facility] Occupational Nurse Comment on above: Performed By: #### C BCAD, MG, URIC, LIPD, PHOS, CMP, DBIL #### [facility] [address], [place] [id number] Urea nitrogen [Mass/Vol] 17 mg/dL Normal 7-25 [facility] Occupational Nurse Comment on above: Performed By: #### C BCAD, MG, URIC, LIPD, PHOS, CMP, DBIL #### [facility] [address], [place] [id number] Lipid Panelon 06-28-2021 Cholesterol [Mass/Vol] 111 mg/dL Low 125-200 [facility] Occupational Nurse Comment on above: Result Comment: Low risk < 200mg/dL Borderline risk 201-239 mg/dl High risk > or equal to 240 Performed By: #### C BCAD, MG, URIC, LIPD, PHOS, CMP, DBIL #### [facility] [address], [place] [id number] Cholesterol in HDL [Mass/Vol] 38 mg/dL Low >40 [facility] Occupational Nurse Comment on above: Result Comment: High Cardiovascular Risk HDL <40 mg/dL Low Cardiovascular Risk HDL > or equal to 60 mg/dl Performed By: #### C BCAD, MG, URIC, LIPD, PHOS, CMP, DBIL #### [facility] [address], [place] [id number] Cholesterol in LDL [Mass/Vol] 47 mg/dL Normal [facility] Occupational Nurse Comment on above: Result Comment: LDL ATP III CLASSIFICATION LDL less than 100 mg/dl Optimal LDL 100-129 mg/dl Near or above optimal LDL 130-159 Borderline high LDL 160-189 High LDL greater than 189 mg/dl Very High Performed By: #### C BCAD, MG, URIC, LIPD, PHOS, CMP, DBIL #### [facility] [address], [place] [id number] Cholesterol in VLDL [Mass/Vol] 26 mg/dL Normal [facility] Occupational Nurse Comment on above: Performed By: #### C BCAD, MG, URIC, LIPD, PHOS, CMP, DBIL #### [facility] [address], [place] [id number] Cholesterol.total/ Cholesterol in HDL [Mass ratio] 3 {ratio} Normal [facility] Occupational Nurse Comment on above: Performed By: #### C BCAD, MG, URIC, LIPD, PHOS, CMP, DBIL #### [facility] [address], [place] [id number] Triglyceride [Mass/Vol] 132 mg/dL Normal 30-150 [facility] Occupational Nurse Comment on above: Result Comment: TRIG ATPIII CLASSIFICATIONS TRIG less than 150 mg/dl Normal TRIG 150-199 mg/dl Borderline High TRIG 200-500 mg/dl High TRIG greather than 500 mg/dl Very High Performed By: #### C BCAD, MG, URIC, LIPD, PHOS, CMP, DBIL #### [facility] [address], [place] [id number] Magnesiumon 06-28-2021 Magnesium [Mass/Vol] 1.7 mg/dL Normal 1.5-2.3 [facility] Occupational Nurse Comment on above: Performed By: #### C BCAD, MG, URIC, LIPD, PHOS, CMP, DBIL #### [facility] [address], [place] [id number] Phosphoruson 06-28-2021 Phosphate [Mass/Vol] 3.7 mg/dL Normal 2.2-4.4 [facility] Occupational Nurse Comment on above: Performed By: #### C BCAD, MG, URIC, LIPD, PHOS, CMP, DBIL #### [facility] [address], [place] [id number] Uric Acidon 06-28-2021 URIC 6.0 mg/dL Normal 4.0-8.0 [facility] Occupational Nurse Comment on above: Result Comment: Refe rence range change 03/03/2017. Prior reference range F 2.4-5.7mg/dL. M 3.4-7.0 mg/dL. Performed By: #### C BCAD, MG, URIC, LIPD, PHOS, CMP, DBIL #### [facility] [address], [place] [id number] Pulmonary Functionon 022 Pulmonary Function MR #: [id number] [facility] PT. Name: Vishal Duke Date: 06/02/2021 [...] by: Negro Syed MD 06/06/2021 03:02 P __ Daniel Jansen MD [facility] Date Dict: 06/06/2021/02:28 P/Negro Syed MD Date Trans: 06/06/2021 02:28 P/ ROSARIO_JN:[id number] cc: Rosa M Gonzales M.D. [facility]9 [facility] [id number] Normal [facility] Bilirubin, Directon 06-01-19 22 DBIL <0.2 Normal [facility] Occupational Nurse Comment on above: Result Comment: Refe rence range change 03/03/2017. Prior reference range 0.1-0.3 mg/dL. Performed By: #### C BCAD, MG, URIC, LIPD, PHOS, CMP, DBIL #### [facility] [address], [place] [id number] Complete Blood Count with Au to Diffon 06-01-2021 Basophils (Bld) [#/Vol] 0.06 10*3/uL Normal 0.00-0.20 [facility] Comment on above: Performed By: #### C BCAD, MG, URIC, LIPD, PHOS, CMP, DBIL #### [facility] [address], [place] [id number] Basophils/100 WBC (Bld) 0.9 % Normal [facility] Special[facility] Comment on above: Performed By: #### C BCAD, MG, URIC, LIPD, PHOS, CMP, DBIL #### [facility] [address], [place] [id number] Eosinophils (Bld) [#/Vol] 0.12 10*3/uL Normal 0.02-0.50 [facility] Special[facility] Comment on above: Performed By: #### C BCAD, MG, URIC, LIPD, PHOS, CMP, DBIL #### [facility] [address], [place] [id number] Eosinophils/100 WBC (Bld) 1.8 % Normal [facility] Special[facility] Comment on above: Performed By: #### C BCAD, MG, URIC, LIPD, PHOS, CMP, DBIL #### [facility] [address], [place] [id number] Erythrocyte distribution width (RBC) [Ratio] 14.7 % Normal 11.0-15.0 [facility] Occupational Nurse Comment on above: Performed By: #### C BCAD, MG, URIC, LIPD, PHOS, CMP, DBIL #### [facility] [address], [place] [id number] Hematocrit (Bld) [Volume fraction] 50.8 % High 38.5-50.0 [facility] Special[facility] Comment on above: Performed By: #### C BCAD, MG, URIC, LIPD, PHOS, CMP, DBIL #### [facility] [address], [place] [id number] Hemoglobin (Bld) [Mass/Vol] 16.5 g/dL Normal 13.0-17.1 [facility] Occupational Nurse Comment on above: Performed By: #### C BCAD, MG, URIC, LIPD, PHOS, CMP, DBIL #### [facility] [address], [place] [id number] Lymphocytes (Bld) [#/Vol] 1.1 10*3/uL Normal 0.9-3.9 [facility] Occupational Nurse Comment on above: Performed By: #### C BCAD, MG, URIC, LIPD, PHOS, CMP, DBIL #### [facility] [address], [place] [id number] Lymphocytes/100 WBC (Bld) 16.1 % Normal [facility] Occupational Nurse Comment on above: Performed By: #### C BCAD, MG, URIC, LIPD, PHOS, CMP, DBIL #### [facility] [address], [place] [id number] MCH (RBC) [Entitic mass] 29.8 pg Normal 27.0-33.0 [facility] Occupational Nurse Comment on above: Performed By: #### C BCAD, MG, URIC, LIPD, PHOS, CMP, DBIL #### [facility] [address], [place] [id number] MCHC (RBC) [Mass/Vol] 32.5 g/dL Normal 32.0-36.0 [facility] Occupational Nurse Comment on above: Performed By: #### C BCAD, MG, URIC, LIPD, PHOS, CMP, DBIL #### [facility] [address], [place] [id number] MCV (RBC) [Entitic vol] 92 fL Normal 80-100 [facility] Special[facility] Comment on above: Performed By: #### C BCAD, MG, URIC, LIPD, PHOS, CMP, DBIL #### [facility] [address], [place] [id number] Monocytes (Bld) [#/Vol] 0.8 10*3/uL Normal 0.2-0.9 [facility] Special[facility] Comment on above: Performed By: #### C BCAD, MG, URIC, LIPD, PHOS, CMP, DBIL #### [facility] [address], [place] [id number] Monocytes/100 WBC (Bld) 11.4 % Normal [facility] Special[facility] Comment on above: Performed By: #### C BCAD, MG, URIC, LIPD, PHOS, CMP, DBIL #### [facility] [address], [place] [id number] Neutrophils (Bld) [#/Vol] 4.6 10*3/uL Normal 1.5-7.8 [facility] Occupational Nurse Comment on above: Performed By: #### C BCAD, MG, URIC, LIPD, PHOS, CMP, DBIL #### [facility] [address], [place] [id number] Neutrophils/100 WBC (Bld) 69.2 % Normal [facility] Occupational Nurse Comment on above: Performed By: #### C BCAD, MG, URIC, LIPD, PHOS, CMP, DBIL #### [facility] [address], [place] [id number] Platelet mean volume (Bld) [Entitic vol] 10.60 fL Normal 7.50-12.50 [facility] Occupational Nurse Comment on above: Performed By: #### C BCAD, MG, URIC, LIPD, PHOS, CMP, DBIL #### [facility] [address], [place] [id number] Platelets (Bld) [#/Vol] 285 10*3/uL Normal 140-400 [facility] Occupational Nurse Comment on above: Performed By: #### C BCAD, MG, URIC, LIPD, PHOS, CMP, DBIL #### [facility] [address], [place] [id number] RBC (Bld) [#/Vol] 5.53 10*6/uL Normal 4.20-5.80 [facility] Occupational Nurse Comment on above: Performed By: #### C BCAD, MG, URIC, LIPD, PHOS, CMP, DBIL #### [facility] [address], [place] [id number] RDW-SD 49.8 fL Normal 37.0-50.0 [facility] Occupational Nurse Comment on above: Performed By: #### C BCAD, MG, URIC, LIPD, PHOS, CMP, DBIL #### [facility] [address], [place] [id number] WBC (Bld) [#/Vol] 6.6 10*3/uL Normal 3.8-11.0 [facility] Occupational Nurse Comment on above: Performed By: #### C BCAD, MG, URIC, LIPD, PHOS, CMP, DBIL #### [facility] [address], [place] [id number] Comprehensive Metabolic Pane [facility] 06-01-2021 Albumin [Mass/Vol] 5.0 g/dL Normal 3.6-5.1 [facility] Occupational Nurse Comment on above: Performed By: #### C BCAD, MG, URIC, LIPD, PHOS, CMP, DBIL #### [facility] [address], [place] [id number] Albumin/Globulin [Mass ratio] 2.6 {ratio} High 1.0-2.5 [facility] Occupational Nurse Comment on above: Performed By: #### C BCAD, MG, URIC, LIPD, PHOS, CMP, DBIL #### [facility] [address], [place] [id number] ALP [Catalytic activity/Vol] 93 U/L Normal 40-129 [facility] Occupational Nurse Comment on above: Performed By: #### C BCAD, MG, URIC, LIPD, PHOS, CMP, DBIL #### [facility] [address], [place] [id number] ALT [Catalytic activity/Vol] 30 U/L Normal 9-46 [facility] Special[facility] Comment on above: Result Comment: 03/17 Female reference range changed. Performed By: #### C BCAD, MG, URIC, LIPD, PHOS, CMP, DBIL #### [facility] [address], [place] [id number] Anion gap [Moles/Vol] 21 mmol/L High 12-20 [facility] Specialist Comment on above: Result Comment: Effe ctive 04/22/2019 reference range changed. Performed By: #### C BCAD, MG, URIC, LIPD, PHOS, CMP, DBIL #### [facility] [address], [place] [id number] AST [Catalytic activity/Vol] 26 U/L Normal 10-40 [facility] Specialist Comment on above: Performed By: #### C BCAD, MG, URIC, LIPD, PHOS, CMP, DBIL #### [facility] [address], [place] [id number] Bilirubin [Mass/Vol] 0.72 mg/dL Normal 0.30-1.20 [facility] Specialist Comment on above: Performed By: #### C BCAD, MG, URIC, LIPD, PHOS, CMP, DBIL #### [facility] [address], [place] [id number] BUN/CREA 15 Ratio Normal 6-22 [facility] Specialist Comment on above: Performed By: #### C BCAD, MG, URIC, LIPD, PHOS, CMP, DBIL #### [facility] [address], [place] [id number] Calcium [Mass/Vol] 10.4 mg/dL High 8.6-10.2 [facility] Comment on above: Performed By: #### C BCAD, MG, URIC, LIPD, PHOS, CMP, DBIL #### [facility] [address], [place] [id number] Chloride [Moles/Vol] 104 mmol/L Normal 98-107 [facility] Special[facility] Comment on above: Performed By: #### C BCAD, MG, URIC, LIPD, PHOS, CMP, DBIL #### [facility] [address], [place] [id number] CO2 [Moles/Vol] 24 mmol/L Normal 20-31 [facility] Comment on above: Performed By: #### C BCAD, MG, URIC, LIPD, PHOS, CMP, DBIL #### [facility] [address], [place] [id number] Creatinine [Mass/Vol] 1.2 mg/dL Normal 0.7-1.4 [facility] Comment on above: Performed By: #### C BCAD, MG, URIC, LIPD, PHOS, CMP, DBIL #### [facility] [address], [place] [id number] eGFRAA 79 mL/min/1.73m2 Normal >60 [facility] Specialist Comment on above: Performed By: #### C BCAD, MG, URIC, LIPD, PHOS, CMP, DBIL #### [facility] [address], [place] [id number] eGFRNAA 65 mL/min/1.73m2 Normal >60 [facility] Specialist Comment on above: Performed By: #### C BCAD, MG, URIC, LIPD, PHOS, CMP, DBIL #### [facility] [address], [place] [id number] Globulin (S) [Mass/Vol] 1.9 g/dL Normal 1.9-3.7 [facility] Specialist Comment on above: Performed By: #### C BCAD, MG, URIC, LIPD, PHOS, CMP, DBIL #### [facility] [address], [place] [id number] Glucose [Mass/Vol] 108 mg/dL High 65-99 [facility] Comment on above: Result Comment: For FASTING Glucose --- ADA reference ranges: Normal 65-99 mg/dl Prediabetes 100-125 Diabetes >/= 126 Performed By: #### C BCAD, MG, URIC, LIPD, PHOS, CMP, DBIL #### [facility] [address], [place] [id number] Potassium [Moles/Vol] 5.0 mmol/L Normal 3.5-5.5 [place] [facility]ational Nurse Comment on above: Performed By: #### C BCAD, MG, URIC, LIPD, PHOS, CMP, DBIL #### [facility] [address], [place] [id number] Protein [Mass/Vol] 6.9 g/dL Normal 6.1-8.1 [facility] [place] Occupational Nurse Comment on above: Performed By: #### C BCAD, MG, URIC, LIPD, PHOS, CMP, DBIL #### [facility] [address], [place] [id number] Sodium [Moles/Vol] 143 mmol/L Normal 135-146 [facility] Occupational Nurse Comment on above: Performed By: #### C BCAD, MG, URIC, LIPD, PHOS, CMP, DBIL #### [facility] [address], [place] [id number] Urea nitrogen [Mass/Vol] 17 mg/dL Normal 7-25 [facility] Occupational Nurse Comment on above: Performed By: #### C BCAD, MG, URIC, LIPD, PHOS, CMP, DBIL #### [facility] [address], [place] [id number] Hemoglobin A1Con 06-01-2021 EAG 139.85 Normal [facility] Occupational Nurse Comment on above: Performed By: #### A 1C #### [facility] [address], [place] [id number] HbA1c (Bld) [Mass fraction] 6.5 % High 4.0-6.0 [facility] Occupational Nurse Comment on above: Performed By: #### A 1C #### [facility] [address], [place] [id number] Lipid Panelon 06-01-2021 Cholesterol [Mass/Vol] 129 mg/dL Normal 125-200 [facility] Occupational Nurse Comment on above: Result Comment: Low risk < 200mg/dL Borderline risk 201-239 mg/dl High risk > or equal to 240 Performed By: #### C BCAD, MG, URIC, LIPD, PHOS, CMP, DBIL #### [facility] [address], [place] [id number] Cholesterol in HDL [Mass/Vol] 44 mg/dL Normal >40 [facility] Occupational Nurse Comment on above: Result Comment: High Cardiovascular Risk HDL <40 mg/dL Low Cardiovascular Risk HDL > or equal to 60 mg/dl Performed By: #### C BCAD, MG, URIC, LIPD, PHOS, CMP, DBIL #### [facility] [address], [place] [id number] Cholesterol in LDL [Mass/Vol] 61 mg/dL Normal [facility] Specialist Comment on above: Result Comment: LDL ATP III CLASSIFICATION LDL less than 100 mg/dl Optimal LDL 100-129 mg/dl Near or above optimal LDL 130-159 Borderline high LDL 160-189 High LDL greater than 189 mg/dl Very High Performed By: #### C BCAD, MG, URIC, LIPD, PHOS, CMP, DBIL #### [facility] [address], [place] [id number] Cholesterol in VLDL [Mass/Vol] 24 mg/dL Normal [facility] Occupational Nurse Comment on above: Performed By: #### C BCAD, MG, URIC, LIPD, PHOS, CMP, DBIL #### [facility] [address], [place] [id number] Cholesterol.total/ Cholesterol in HDL [Mass ratio] 3 {ratio} Normal [facility] Occupational Nurse Comment on above: Performed By: #### C BCAD, MG, URIC, LIPD, PHOS, CMP, DBIL #### [facility] [address], [place] [id number] Triglyceride [Mass/Vol] 119 mg/dL Normal 30-150 [facility] Occupational Nurse Comment on above: Result Comment: TRIG ATPIII CLASSIFICATIONS TRIG less than 150 mg/dl Normal TRIG 150-199 mg/dl Borderline High TRIG 200-500 mg/dl High TRIG greather than 500 mg/dl Very High Performed By: #### C BCAD, MG, URIC, LIPD, PHOS, CMP, DBIL #### [facility] [address], [place] [id number] Magnesiumon 06-01-2021 Magnesium [Mass/Vol] 1.8 mg/dL Normal 1.5-2.3 [facility] Special[facility] Comment on above: Performed By: #### C BCAD, MG, URIC, LIPD, PHOS, CMP, DBIL #### [facility] [address], [place] [id number] Phosphoruson 06-01-2021 Phosphate [Mass/Vol] 4.3 mg/dL Normal 2.2-4.4 [facility] Occupational Nurse Comment on above: Performed By: #### C BCAD, MG, URIC, LIPD, PHOS, CMP, DBIL #### [facility] [address], [place] [id number] Uric Acidon 06-01-2021 URIC 6.1 mg/dL Normal 4.0-8.0 [facility] Occupational Nurse Comment on above: Result Comment: Refe rence range change 03/03/2017. Prior reference range F 2.4-5.7mg/dL. M 3.4-7.0 mg/dL. Performed By: #### C BCAD, MG, URIC, LIPD, PHOS, CMP, DBIL #### [facility] [address], [place] [id number] Bilirubin, Directon 04-30-19 22 DBIL <0.2 Normal [facility] Special[facility] Comment on above: Result Comment: Refe rence range change 03/03/2017. Prior reference range 0.1-0.3 mg/dL. Performed By: #### C BCAD, MG, URIC, LIPD, PHOS, CMP, DBIL #### [facility] [address], [place] [id number] Complete Blood Count with Au to Diffon 04-30-2021 Basophils (Bld) [#/Vol] 0.07 10*3/uL Normal 0.00-0.20 [facility] Special[facility] Comment on above: Performed By: #### C BCAD, MG, URIC, LIPD, PHOS, CMP, DBIL #### [facility] [address], [place] [id number] Basophils/100 WBC (Bld) 1.1 % Normal [facility] Specialist Comment on above: Performed By: #### C BCAD, MG, URIC, LIPD, PHOS, CMP, DBIL #### [facility] [address], [place] [id number] Eosinophils (Bld) [#/Vol] 0.12 10*3/uL Normal 0.02-0.50 [place] Occupational Nurse Comment on above: Performed By: #### C BCAD, MG, URIC, LIPD, PHOS, CMP, DBIL #### [facility] [address], [place] [id number] Eosinophils/100 WBC (Bld) 1.8 % Normal [facility] Specialist Comment on above: Performed By: #### C BCAD, MG, URIC, LIPD, PHOS, CMP, DBIL #### [facility] [address], [place] [id number] Erythrocyte distribution width (RBC) [Ratio] 14.7 % Normal 11.0-15.0 [facility] Specialist Comment on above: Performed By: #### C BCAD, MG, URIC, LIPD, PHOS, CMP, DBIL #### [facility] [address], [place] [id number] Hematocrit (Bld) [Volume fraction] 50.5 % High 38.5-50.0 [facility] Specialist Comment on above: Performed By: #### C BCAD, MG, URIC, LIPD, PHOS, CMP, DBIL #### [facility] [address], [place] [id number] Hemoglobin (Bld) [Mass/Vol] 16.4 g/dL Normal 13.0-17.1 [facility] Occupational Nurse Comment on above: Performed By: #### C BCAD, MG, URIC, LIPD, PHOS, CMP, DBIL #### [facility] [address], [place] [id number] Lymphocytes (Bld) [#/Vol] 1.0 10*3/uL Normal 0.9-3.9 [facility] Special[facility] Comment on above: Performed By: #### C BCAD, MG, URIC, LIPD, PHOS, CMP, DBIL #### [facility] [address], [place] [id number] Lymphocytes/100 WBC (Bld) 14.7 % Normal [facility] Occupational Nurse Comment on above: Performed By: #### C BCAD, MG, URIC, LIPD, PHOS, CMP, DBIL #### [facility] [address], [place] [id number] MCH (RBC) [Entitic mass] 29.4 pg Normal 27.0-33.0 [facility] Special[facility] Comment on above: Performed By: #### C BCAD, MG, URIC, LIPD, PHOS, CMP, DBIL #### [facility] [address], [place] [id number] MCHC (RBC) [Mass/Vol] 32.5 g/dL Normal 32.0-36.0 [facility] Special[facility] Comment on above: Performed By: #### C BCAD, MG, URIC, LIPD, PHOS, CMP, DBIL #### [facility] [address], [place] [id number] MCV (RBC) [Entitic vol] 91 fL Normal 80-100 [facility] Occupational Nurse Comment on above: Performed By: #### C BCAD, MG, URIC, LIPD, PHOS, CMP, DBIL #### [facility] [address], [place] [id number] Monocytes (Bld) [#/Vol] 0.7 10*3/uL Normal 0.2-0.9 [facility] Special[facility] Comment on above: Performed By: #### C BCAD, MG, URIC, LIPD, PHOS, CMP, DBIL #### [facility] [address], [place] [id number] Monocytes/100 WBC (Bld) 10.4 % Normal [facility] Special[facility] Comment on above: Performed By: #### C BCAD, MG, URIC, LIPD, PHOS, CMP, DBIL #### [facility] [address], [place] [id number] Neutrophils (Bld) [#/Vol] 4.7 10*3/uL Normal 1.5-7.8 [facility] Occupational Nurse Comment on above: Performed By: #### C BCAD, MG, URIC, LIPD, PHOS, CMP, DBIL #### [facility] [address], [place] [id number] Neutrophils/100 WBC (Bld) 71.4 % Normal [facility] Occupational Nurse Comment on above: Performed By: #### C BCAD, MG, URIC, LIPD, PHOS, CMP, DBIL #### [facility] [address], [place] [id number] Platelet mean volume (Bld) [Entitic vol] 10.70 fL Normal 7.50-12.50 [facility] Occupational Nurse Comment on above: Performed By: #### C BCAD, MG, URIC, LIPD, PHOS, CMP, DBIL #### [facility] [address], [place] [id number] Platelets (Bld) [#/Vol] 261 10*3/uL Normal 140-400 [facility] Occupational Nurse Comment on above: Performed By: #### C BCAD, MG, URIC, LIPD, PHOS, CMP, DBIL #### [facility] [address], [place] [id number] RBC (Bld) [#/Vol] 5.57 10*6/uL Normal 4.20-5.80 [facility] Occupational Nurse Comment on above: Performed By: #### C BCAD, MG, URIC, LIPD, PHOS, CMP, DBIL #### [facility] [address], [place] [id number] RDW-SD 49.2 fL Normal 37.0-50.0 [facility] Occupational Nurse Comment on above: Performed By: #### C BCAD, MG, URIC, LIPD, PHOS, CMP, DBIL #### [facility] [address], [place] [id number] WBC (Bld) [#/Vol] 6.6 10*3/uL Normal 3.8-11.0 [facility] [place] Occupational Nurse Comment on above: Performed By: #### C BCAD, MG, URIC, LIPD, PHOS, CMP, DBIL #### [facility] [address], [place] [id number] Comprehensive Metabolic Pane [facility] 04-30-2021 Albumin [Mass/Vol] 4.9 g/dL Normal 3.6-5.1 [facility] [place] Occupational Nurse Comment on above: Performed By: #### C BCAD, MG, URIC, LIPD, PHOS, CMP, DBIL #### [facility] [address], [place] [id number] Albumin/Globulin [Mass ratio] 2.6 {ratio} High 1.0-2.5 [facility] Specialist Comment on above: Performed By: #### C BCAD, MG, URIC, LIPD, PHOS, CMP, DBIL #### [facility] [address], [place] [id number] ALP [Catalytic activity/Vol] 89 U/L Normal 40-129 [facility] Specialist Comment on above: Performed By: #### C BCAD, MG, URIC, LIPD, PHOS, CMP, DBIL #### [facility] [address], [place] [id number] ALT [Catalytic activity/Vol] 30 U/L Normal 9-46 [facility] Specialist Comment on above: Result Comment: 03/17 Female reference range changed. Performed By: #### C BCAD, MG, URIC, LIPD, PHOS, CMP, DBIL #### [facility] [address], [place] [id number] Anion gap [Moles/Vol] 20 mmol/L Normal 12-20 [facility] Specialist Comment on above: Result Comment: Effe ctive 04/22/2019 reference range changed. Performed By: #### C BCAD, MG, URIC, LIPD, PHOS, CMP, DBIL #### [facility] [address], [place] [id number] AST [Catalytic activity/Vol] 23 U/L Normal 10-40 [facility] Specialist Comment on above: Performed By: #### C BCAD, MG, URIC, LIPD, PHOS, CMP, DBIL #### [facility] [address], [place] [id number] Bilirubin [Mass/Vol] 0.52 mg/dL Normal 0.30-1.20 [facility] Specialist Comment on above: Performed By: #### C BCAD, MG, URIC, LIPD, PHOS, CMP, DBIL #### [facility] [address], [place] [id number] BUN/CREA 18 Ratio Normal 6-22 [facility] Specialist Comment on above: Performed By: #### C BCAD, MG, URIC, LIPD, PHOS, CMP, DBIL #### [facility] [address], [place] [id number] Calcium [Mass/Vol] 10.1 mg/dL Normal 8.6-10.2 [facility] Comment on above: Performed By: #### C BCAD, MG, URIC, LIPD, PHOS, CMP, DBIL #### [facility] [address], [place] [id number] Chloride [Moles/Vol] 102 mmol/L Normal 98-107 [facility] Comment on above: Performed By: #### C BCAD, MG, URIC, LIPD, PHOS, CMP, DBIL #### [facility] [address], [place] [id number] CO2 [Moles/Vol] 23 mmol/L Normal 20-31 [facility] Specialist Comment on above: Performed By: #### C BCAD, MG, URIC, LIPD, PHOS, CMP, DBIL #### [facility] [address], [place] [id number] Creatinine [Mass/Vol] 1.3 mg/dL Normal 0.7-1.4 [facility] Specialist Comment on above: Performed By: #### C BCAD, MG, URIC, LIPD, PHOS, CMP, DBIL #### [facility] [address], [place] [id number] eGFRAA 71 mL/min/1.73m2 Normal >60 [facility] Specialist Comment on above: Performed By: #### C BCAD, MG, URIC, LIPD, PHOS, CMP, DBIL #### [facility] [address], [place] [id number] eGFRNAA 59 mL/min/1.73m2 Low >60 [facility] Specialist Comment on above: Performed By: #### C BCAD, MG, URIC, LIPD, PHOS, CMP, DBIL #### [facility] [address], [place] [id number] Globulin (S) [Mass/Vol] 1.9 g/dL Normal 1.9-3.7 [facility] Specialist Comment on above: Performed By: #### C BCAD, MG, URIC, LIPD, PHOS, CMP, DBIL #### [facility] [address], [place] [id number] Glucose [Mass/Vol] 128 mg/dL High 65-99 [facility] Occupational Nurse Comment on above: Result Comment: For FASTING Glucose --- ADA reference ranges: Normal 65-99 mg/dl Prediabetes 100-125 Diabetes >/= 126 Performed By: #### C BCAD, MG, URIC, LIPD, PHOS, CMP, DBIL #### [facility] [address], [place] [id number] Potassium [Moles/Vol] 4.4 mmol/L Normal 3.5-5.5 [facility] Occupational Nurse Comment on above: Performed By: #### C BCAD, MG, URIC, LIPD, PHOS, CMP, DBIL #### [facility] [address], [place] [id number] Protein [Mass/Vol] 6.8 g/dL Normal 6.1-8.1 [facility] Occupational Nurse Comment on above: Performed By: #### C BCAD, MG, URIC, LIPD, PHOS, CMP, DBIL #### [facility] [address], [place] [id number] Sodium [Moles/Vol] 140 mmol/L Normal 135-146 [facility] Occupational Nurse Comment on above: Performed By: #### C BCAD, MG, URIC, LIPD, PHOS, CMP, DBIL #### [facility] [address], [place] [id number] Urea nitrogen [Mass/Vol] 23 mg/dL Normal 7-25 [facility] Occupational Nurse Comment on above: Performed By: #### C BCAD, MG, URIC, LIPD, PHOS, CMP, DBIL #### [facility] [address], [place] [id number] Lipid Panelon 04-30-2021 Cholesterol [Mass/Vol] 123 mg/dL Low 125-200 [facility] Occupational Nurse Comment on above: Result Comment: Low risk < 200mg/dL Borderline risk 201-239 mg/dl High risk > or equal to 240 Performed By: #### C BCAD, MG, URIC, LIPD, PHOS, CMP, DBIL #### [facility] [address], [place] [id number] Cholesterol in HDL [Mass/Vol] 41 mg/dL Normal >40 [facility] Occupational Nurse Comment on above: Result Comment: High Cardiovascular Risk HDL <40 mg/dL Low Cardiovascular Risk HDL > or equal to 60 mg/dl Performed By: #### C BCAD, MG, URIC, LIPD, PHOS, CMP, DBIL #### [facility] [address], [place] [id number] Cholesterol in LDL [Mass/Vol] 51 mg/dL Normal [facility] Occupational Nurse Comment on above: Result Comment: LDL ATP III CLASSIFICATION LDL less than 100 mg/dl Optimal LDL 100-129 mg/dl Near or above optimal LDL 130-159 Borderline high LDL 160-189 High LDL greater than 189 mg/dl Very High Performed By: #### C BCAD, MG, URIC, LIPD, PHOS, CMP, DBIL #### [facility] [address], [place] [id number] Cholesterol in VLDL [Mass/Vol] 31 mg/dL Normal [facility] Occupational Nurse Comment on above: Performed By: #### C BCAD, MG, URIC, LIPD, PHOS, CMP, DBIL #### [facility] [address], [place] [id number] Cholesterol.total/ Cholesterol in HDL [Mass ratio] 3 {ratio} Normal [facility] Specialist Comment on above: Performed By: #### C BCAD, MG, URIC, LIPD, PHOS, CMP, DBIL #### [facility] [address], [place] [id number] Triglyceride [Mass/Vol] 156 mg/dL High 30-150 [facility] Occupational Nurse Comment on above: Result Comment: TRIG ATPIII CLASSIFICATIONS TRIG less than 150 mg/dl Normal TRIG 150-199 mg/dl Borderline High TRIG 200-500 mg/dl High TRIG greather than 500 mg/dl Very High Performed By: #### C BCAD, MG, URIC, LIPD, PHOS, CMP, DBIL #### [facility] [address], [place] [id number] Magnesiumon 04-30-2021 Magnesium [Mass/Vol] 2.0 mg/dL Normal 1.5-2.3 [facility] Occupational Nurse Comment on above: Performed By: #### C BCAD, MG, URIC, LIPD, PHOS, CMP, DBIL #### [facility] [address], [place] [id number] Phosphoruson 04-30-2021 Phosphate [Mass/Vol] 4.2 mg/dL Normal 2.2-4.4 [facility] Occupational Nurse Comment on above: Performed By: #### C BCAD, MG, URIC, LIPD, PHOS, CMP, DBIL #### [facility] [address], [place] [id number] Uric Acidon 04-30-2021 URIC 5.3 mg/dL Normal 4.0-8.0 [facility] Occupational Nurse Comment on above: Result Comment: Refe rence range change 03/03/2017. Prior reference range F 2.4-5.7mg/dL. M 3.4-7.0 mg/dL. 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 History of Present [...] he saw his regular Gunn by his central melt specialist to agreed with and endorsed the care we rendered. The device was interrogated it in their office and it appears to be functioning appropriately. Because of all the above he is pleased with his care. He'll be following up henceforth with the [place] central melt specialist and we advised him were always happy [...] transplantation History of Pacemaker insertion History of [place] tooth extraction Current Meds Medication NameInstruction Aspirin [...] Vital Signs Recorded: 23Apr2021 05:40PMRecorded: 23Apr2021 03:22PM [id number], RUE, Heuicud821, RUE, Sitting Pzkuzsuue36, RUE, Xhitchn20, RUE, Sitting Heart Rate61, R Brachial Artery Height5 ft 11 in Hdbuzq522 lb BMI Wwkashgwfi45.57 kg/m2 BSA Calculated2.16 Tobacco Useb) No Fall [...] abdomen non-tender (more content not included)... Normal [place] Tobacco Screening.on 022 Fall risk assessment c) Not medically indicated [facility] [facility] [place] Work Phone: Tobacco use status CP b) No MP-[facility] [address] DO Work Phone: Bilirubin, Directon 03-29-20 21 DBIL <0.2 Normal [facility] Occupational Nurse Comment on above: Result Comment: Refe renstephanie range change 03/03/2017. Prior reference range 0.1-0.3 mg/dL. Performed By: #### C BCAD, MG, URIC, LIPD, PHOS, CMP, DBIL #### [facility] [address] [place] [id number] Complete Blood Count with Au to Diffon 03-29-2021 Basophils (Bld) [#/Vol] 0.06 10*3/uL Normal 0.00-0.20 [facility] Occupational Nurse Comment on above: Performed By: #### C BCAD, MG, URIC, LIPD, PHOS, CMP, DBIL #### [facility] [address], [place] [id number] Basophils/100 WBC (Bld) 0.7 % Normal [facility] Occupational Nurse Comment on above: Performed By: #### C BCAD, MG, URIC, LIPD, PHOS, CMP, DBIL #### [facility] [address], [place] [id number] Eosinophils (Bld) [#/Vol] 0.13 10*3/uL Normal 0.02-0.50 [facility] Occupational Nurse Comment on above: Performed By: #### C BCAD, MG, URIC, LIPD, PHOS, CMP, DBIL #### [facility] [address], [place] [id number] Eosinophils/100 WBC (Bld) 1.6 % Normal [facility] Occupational Nurse Comment on above: Performed By: #### C BCAD, MG, URIC, LIPD, PHOS, CMP, DBIL #### [facility] [address], [place] [id number] Erythrocyte distribution width (RBC) [Ratio] 14.9 % Normal 11.0-15.0 [facility] Occupational Nurse Comment on above: Performed By: #### C BCAD, MG, URIC, LIPD, PHOS, CMP, DBIL #### [facility] [address], [place] [id number] Hematocrit (Bld) [Volume fraction] 51.2 % High 38.5-50.0 [facility] Occupational Nurse Comment on above: Performed By: #### C BCAD, MG, URIC, LIPD, PHOS, CMP, DBIL #### [facility] [address], [place] [id number] Hemoglobin (Bld) [Mass/Vol] 16.0 g/dL Normal 13.0-17.1 [facility] Occupational Nurse Comment on above: Performed By: #### C BCAD, MG, URIC, LIPD, PHOS, CMP, DBIL #### [facility] [address], [place] [id number] Lymphocytes (Bld) [#/Vol] 0.9 10*3/uL Normal 0.9-3.9 [facility] Specialist Comment on above: Performed By: #### C BCAD, MG, URIC, LIPD, PHOS, CMP, DBIL #### [facility] [address], [place] [id number] Lymphocytes/100 WBC (Bld) 10.7 % Normal [facility] Specialist Comment on above: Performed By: #### C BCAD, MG, URIC, LIPD, PHOS, CMP, DBIL #### [facility] [address], [place] [id number] MCH (RBC) [Entitic mass] 28.9 pg Normal 27.0-33.0 [facility] Specialist Comment on above: Performed By: #### C BCAD, MG, URIC, LIPD, PHOS, CMP, DBIL #### [facility] [address], [place] [id number] MCHC (RBC) [Mass/Vol] 31.3 g/dL Low 32.0-36.0 [facility] Specialist Comment on above: Performed By: #### C BCAD, MG, URIC, LIPD, PHOS, CMP, DBIL #### [facility] [address], [place] [id number] MCV (RBC) [Entitic vol] 92 fL Normal 80-100 [facility] Specialist Comment on above: Performed By: #### C BCAD, MG, URIC, LIPD, PHOS, CMP, DBIL #### [facility] [address], [place] [id number] Monocytes (Bld) [#/Vol] 0.7 10*3/uL Normal 0.2-0.9 [facility] Specialist Comment on above: Performed By: #### C BCAD, MG, URIC, LIPD, PHOS, CMP, DBIL #### [facility] [address], [place] [id number] Monocytes/100 WBC (Bld) 8.1 % Normal [facility] Specialist Comment on above: Performed By: #### C BCAD, MG, URIC, LIPD, PHOS, CMP, DBIL #### [facility] [address], [place] [id number] Neutrophils (Bld) [#/Vol] 6.4 10*3/uL Normal 1.5-7.8 [facility] Specialist Comment on above: Performed By: #### C BCAD, MG, URIC, LIPD, PHOS, CMP, DBIL #### [facility] [address], [place] [id number] Neutrophils/100 WBC (Bld) 78.5 % Normal [facility] Specialist Comment on above: Performed By: #### C BCAD, MG, URIC, LIPD, PHOS, CMP, DBIL #### [facility] [address], [place] [id number] Platelet mean volume (Bld) [Entitic vol] 11.20 fL Normal 7.50-12.50 [facility] Specialist Comment on above: Performed By: #### C BCAD, MG, URIC, LIPD, PHOS, CMP, DBIL #### [facility] [address], [place] [id number] Platelets (Bld) [#/Vol] 295 10*3/uL Normal 140-400 [facility] Occupational Nurse Comment on above: Performed By: #### C BCAD, MG, URIC, LIPD, PHOS, CMP, DBIL #### [facility] [address], [place] [id number] RBC (Bld) [#/Vol] 5.54 10*6/uL Normal 4.20-5.80 [facility] Specialist Comment on above: Performed By: #### C BCAD, MG, URIC, LIPD, PHOS, CMP, DBIL #### [facility] [address], [place] [id number] RDW-SD 51.0 fL High 37.0-50.0 [facility] Specialist Comment on above: Performed By: #### C BCAD, MG, URIC, LIPD, PHOS, CMP, DBIL #### [facility] [address], [place] [id number] WBC (Bld) [#/Vol] 8.2 10*3/uL Normal 3.8-11.0 [facility] [place] Occupational Nurse Comment on above: Performed By: #### C BCAD, MG, URIC, LIPD, PHOS, CMP, DBIL #### [facility] [address], [place] [id number] Comprehensive Metabolic Pane [facility] 03-29-2021 Albumin [Mass/Vol] 4.9 g/dL Normal 3.6-5.1 [facility] [place] Occupational Nurse Comment on above: Performed By: #### C BCAD, MG, URIC, LIPD, PHOS, CMP, DBIL #### [facility] [address], [place] [id number] Albumin/Globulin [Mass ratio] 2.5 {ratio} Normal 1.0-2.5 [facility] Specialist Comment on above: Performed By: #### C BCAD, MG, URIC, LIPD, PHOS, CMP, DBIL #### [facility] [address], [place] [id number] ALP [Catalytic activity/Vol] 86 U/L Normal 40-129 [facility] Specialist Comment on above: Performed By: #### C BCAD, MG, URIC, LIPD, PHOS, CMP, DBIL #### [facility] [address], [place] [id number] ALT [Catalytic activity/Vol] 33 U/L Normal 9-46 [facility] Specialist Comment on above: Result Comment: 03/17 Female reference range changed. Performed By: #### C BCAD, MG, URIC, LIPD, PHOS, CMP, DBIL #### [facility] [address], [place] [id number] Anion gap [Moles/Vol] 18 mmol/L Normal 12-20 [facility] Occupational Nurse Comment on above: Result Comment: Effe ctive 04/22/2019 reference range changed. Performed By: #### C BCAD, MG, URIC, LIPD, PHOS, CMP, DBIL #### [facility] [address], [place] [id number] AST [Catalytic activity/Vol] 27 U/L Normal 10-40 [facility] Specialist Comment on above: Performed By: #### C BCAD, MG, URIC, LIPD, PHOS, CMP, DBIL #### [facility] [address], [place] [id number] Bilirubin [Mass/Vol] 0.38 mg/dL Normal 0.30-1.20 [facility] Specialist Comment on above: Performed By: #### C BCAD, MG, URIC, LIPD, PHOS, CMP, DBIL #### [facility] [address], [place] [id number] BUN/CREA 12 Ratio Normal 6-22 [facility] Specialist Comment on above: Performed By: #### C BCAD, MG, URIC, LIPD, PHOS, CMP, DBIL #### [facility] [address], [place] [id number] Calcium [Mass/Vol] 10.3 mg/dL High 8.6-10.2 [facility] Comment on above: Performed By: #### C BCAD, MG, URIC, LIPD, PHOS, CMP, DBIL #### [facility] [address], [place] [id number] Chloride [Moles/Vol] 105 mmol/L Normal 98-107 [facility] Specialist Comment on above: Performed By: #### C BCAD, MG, URIC, LIPD, PHOS, CMP, DBIL #### [facility] [address], [place] [id number] CO2 [Moles/Vol] 23 mmol/L Normal 20-31 [facility] Specialist Comment on above: Performed By: #### C BCAD, MG, URIC, LIPD, PHOS, CMP, DBIL #### [facility] [address], [place] [id number] Creatinine [Mass/Vol] 1.2 mg/dL Normal 0.7-1.4 [facility] Specialist Comment on above: Performed By: #### C BCAD, MG, URIC, LIPD, PHOS, CMP, DBIL #### [facility] [address], [place] [id number] eGFRAA 79 mL/min/1.73m2 Normal >60 [facility] Occupational Nurse Comment on above: Performed By: #### C BCAD, MG, URIC, LIPD, PHOS, CMP, DBIL #### [facility] [address], [place] [id number] eGFRNAA 65 mL/min/1.73m2 Normal >60 [facility] Occupational Nurse Comment on above: Performed By: #### C BCAD, MG, URIC, LIPD, PHOS, CMP, DBIL #### [facility] [address], [place] [id number] Globulin (S) [Mass/Vol] 2.0 g/dL Normal 1.9-3.7 [facility] Occupational Nurse Comment on above: Performed By: #### C BCAD, MG, URIC, LIPD, PHOS, CMP, DBIL #### [facility] [address], [place] [id number] Glucose [Mass/Vol] 125 mg/dL High 65-99 [facility] [place] Occupational Nurse Comment on above: Result Comment: For FASTING Glucose --- ADA reference ranges: Normal 65-99 mg/dl Prediabetes 100-125 Diabetes >/= 126 Performed By: #### C BCAD, MG, URIC, LIPD, PHOS, CMP, DBIL #### [facility] [address], [place] [id number] Potassium [Moles/Vol] 4.7 mmol/L Normal 3.5-5.5 [facility] Occupational Nurse Comment on above: Performed By: #### C BCAD, MG, URIC, LIPD, PHOS, CMP, DBIL #### [facility] [address], [place] [id number] Protein [Mass/Vol] 6.9 g/dL Normal 6.1-8.1 [facility] [place] Occupational Nurse Comment on above: Performed By: #### C BCAD, MG, URIC, LIPD, PHOS, CMP, DBIL #### [facility] [address], [place] [id number] Sodium [Moles/Vol] 141 mmol/L Normal 135-146 [place] [facility] [place] Occupational Nurse Comment on above: Performed By: #### C BCAD, MG, URIC, LIPD, PHOS, CMP, DBIL #### [facility] [address] [facility] [facility] [place] [id number] Urea nitrogen [Mass/Vol] 14 mg/dL Normal 7-25 [facility] Occupational Nurse Comment on above: Performed By: #### C BCAD, MG, URIC, LIPD, PHOS, CMP, DBIL #### [facility] [address] [facility] [place] [place] [id number] Lipid Panelon 03-29-2021 Cholesterol [Mass/Vol] 123 mg/dL Low 125-200 [facility] Occupational Nurse Comment on above: Result Comment: Low risk < 200mg/dL Borderline risk 201-239 mg/dl High risk > or equal to 240 Performed By: #### C BCAD, MG, URIC, LIPD, PHOS, CMP, DBIL #### [facility] [address], [place] [id number] Cholesterol in HDL [Mass/Vol] 42 mg/dL Normal >40 [facility] Occupational Nurse Comment on above: Result Comment: High Cardiovascular Risk HDL <40 mg/dL Low Cardiovascular Risk HDL > or equal to 60 mg/dl Performed By: #### C BCAD, MG, URIC, LIPD, PHOS, CMP, DBIL #### [facility] [address], [place] [id number] Cholesterol in LDL [Mass/Vol] 58 mg/dL Normal [facility] Occupational Nurse Comment on above: Result Comment: LDL ATP III CLASSIFICATION LDL less than 100 mg/dl Optimal LDL 100-129 mg/dl Near or above optimal LDL 130-159 Borderline high LDL 160-189 High LDL greater than 189 mg/dl Very High Performed By: #### C BCAD, MG, URIC, LIPD, PHOS, CMP, DBIL #### [facility] [address] [facility] [place] [place] [id number] Cholesterol in VLDL [Mass/Vol] 23 mg/dL Normal [facility] Occupational Nurse Comment on above: Performed By: #### C BCAD, MG, URIC, LIPD, PHOS, CMP, DBIL #### [facility] [address] [facility] [place] [place] [id number] Cholesterol.total/ Cholesterol in HDL [Mass ratio] 3 {ratio} Normal [facility] Occupational Nurse Comment on above: Performed By: #### C BCAD, MG, URIC, LIPD, PHOS, CMP, DBIL #### [facility] [address], [place] [id number] Triglyceride [Mass/Vol] 113 mg/dL Normal 30-150 [facility] Occupational Nurse Comment on above: Result Comment: TRIG ATPIII CLASSIFICATIONS TRIG less than 150 mg/dl Normal TRIG 150-199 mg/dl Borderline High TRIG 200-500 mg/dl High TRIG greather than 500 mg/dl Very High Performed By: #### C BCAD, MG, URIC, LIPD, PHOS, CMP, DBIL #### [facility] [address], [place] [id number] Magnesiumon 03-29-2021 Magnesium [Mass/Vol] 1.9 mg/dL Normal 1.5-2.3 [facility] Occupational Nurse Comment on above: Performed By: #### C BCAD, MG, URIC, LIPD, PHOS, CMP, DBIL #### [facility] [address], [place] [id number] Phosphoruson 03-29-2021 Phosphate [Mass/Vol] 4.1 mg/dL Normal 2.2-4.4 [facility] Occupational Nurse Comment on above: Performed By: #### C BCAD, MG, URIC, LIPD, PHOS, CMP, DBIL #### [facility] [address], [place] [id number] Uric Acidon 03-29-2021 URIC 7.5 mg/dL Normal 4.0-8.0 [facility] Occupational Nurse Comment on above: Result Comment: Refe rence range change 03/03/2017. Prior reference range F 2.4-5.7mg/dL. M 3.4-7.0 mg/dL. Performed By: #### C BCAD, MG, URIC, LIPD, PHOS, CMP, DBIL #### [facility] [address], [place] [id number] [facility] CHEST 2 [facility] 12-24-2020 [facility] CHEST [address] [facility] Department of Radiology [address] [place] [address] Patient Name: VISHAL DUKE : 1960 Sex: M Age: Race: White Pt. Location: [facility] Patient Status: D Ordered Date: 12/24/2020 3:50:00 PM Completed Date: 12/24/2020 03:48 PM Requesting Provider: ZULY VERDUZCO Attending Provider: Report Copy To: Signs & Symptoms: U07.1 COVID-19 I10 History: [place] Comments: covid Exam: [facility] CHEST 2 VWS [facility] CHEST 2 VWS 12/24/2020 3:48 [...] process. Electronically signed: Giovana Garrido. Transcribed by: [email or web address], User Resident: Electronically Signed by: GIOVANA GARRIDO @ 12/25/2020 12:24 PM Normal [facility] Comment on above: Order Comment: No: D o not add to previous draw CV'D BY [facility] AT 1240 Glucose Poct Glucometerson 0 12-12-2020 Commemt1 Glu2: Cleaned Meter Normal [facility] Comment on above: Result Comment: PERF ORMED BY: [place] [id number] PATHOLOGIST [employer] SHYANN OLIVIER M.D. Performed By: #### B MP, HS TROP, CBC, PT, PTT, BNP #### [place] [id number] [facility] Glucose [Mass/Vol] 147 mg/dL Normal [facility] Comment on above: Result Comment: [place] om Glucose Reference Range is dependent on time and content of last meal. Glucose of more than 200 mg/dL in a nonstressed, ambulatory subject supports the diagnosis of Diabetes Mellitus. Performed By: #### B MP, HS TROP, CBC, PT, PTT, BNP #### [address] Glucose [Mass/Vol] 107 mg/dL Normal [facility] Comment on above: Result Comment: [place] Glucose Reference Range is dependent on time and content of last meal. Glucose of more than 200 mg/dL in a nonstressed, ambulatory subject supports the diagnosis of Diabetes Mellitus. PERFORMED BY: [place] [id number] PATHOLOGIST [employer]OMER RECOVERY OPERATOR SHYANN OLIVIER M.D. Performed By: #### B MP, HS TROP, CBC, PT, PTT, BNP #### [place] [id number] [facility] XR chest 2V*on 12-12-2020 XR chest 2V* [facility] [place] [address] XRay Report Signed Patient: Vishal Duke MR#: [id number] : 1960 Acct:[id number] Age/Sex: 59 / M ADM Date: 12/08/20 Loc: Room: [address] [place] [address] Type: ADM IN Attending Dr: Leonardo Storey [...] Farah Jr., M.D.12/12/2020 9:15 AM Dictation Location: [place] [address] Transcribed By: [facility] 12/12/20914 Dictated By: Faraz Farah Jr, MD 12/12/20908 Signed By: 12/12/20914 Normal [facility] Basic Metabolic Panel 11-16 Calcium [Mass/Vol] 8.9 mg/dL Normal 8.2-10.2 [facility] Comment on above: Performed By: #### B MP, HS TROP, CBC, PT, PTT, BNP #### [facility] [address] [place] [address] [place] Chloride [Moles/Vol] 105 mmol/L Normal 95-114 [facility] Comment on above: Performed By: #### B MP, HS TROP, CBC, PT, PTT, BNP #### [facility] [address] [place] [address] [place] CO2 [Moles/Vol] 22.1 mmol/L Normal 22.0-30.0 [facility] Comment on above: Performed By: #### B MP, HS TROP, CBC, PT, PTT, BNP #### [facility] [address] [place] [address] [place] Creatinine [Mass/Vol] 1.08 mg/dL Normal 0.64-1.27 [facility] Comment on above: Performed By: #### B MP, HS TROP, CBC, PT, PTT, BNP #### [place] [address] [place] Creatinine Clr Calc Pharmacy 78.44 [facility] Comment on above: Result Comment: PERF ORMED BY: [place] [id number] PATHOLOGIST [employer]OMER RECOVERY OPERATOR SHYANN OLIVIER M.D. Performed By: #### B MP, HS TROP, CBC, PT, PTT, BNP #### [address] Estimated GFR ( Nata > 60 [facility] Comment on above: Result Comment: GFR estimated reference range: According to KDOQI guidelines, <60 ml/min/1.73m2 is sufficient to diagnose a patient with chronic kidney disease. Performed By: #### B MP, HS TROP, CBC, PT, PTT, BNP #### [address] Estimated GFR (Non- Am > 60 [facility] Comment on above: Performed By: #### B MP, HS TROP, CBC, PT, PTT, BNP #### [address] Glucose [Mass/Vol] 138 mg/dL High 70-100 [facility] Comment on above: Result Comment: [place] Glucose Reference Range is dependent on time and content of last meal. Glucose of more than 200 mg/dL in a nonstressed, ambulatory subject supports the diagnosis of Diabetes Mellitus. ADA recommended reference range Performed By: #### B MP, HS TROP, CBC, PT, PTT, BNP #### [address] Potassium [Moles/Vol] 4.2 mmol/L Normal 3.5-5.1 [facility] Comment on above: Performed By: #### B MP, HS TROP, CBC, PT, PTT, BNP #### [address] Sodium [Moles/Vol] 138 mmol/L Normal 136-146 [facility] Comment on above: Performed By: #### B MP, HS TROP, CBC, PT, PTT, BNP #### [address] [place] [address] [place] Urea nitrogen [Mass/Vol] 11 mg/dL Normal 9-23 [facility] Comment on above: Performed By: #### B MP, HS TROP, CBC, PT, PTT, BNP #### [address] Complete Blood Count Auto Di ffon 12-11-2020 Basophils (Bld) [#/Vol] 0.1 10*3/uL Normal 0.0-0.2 [facility] Comment on above: Result Comment: PERF ORMED BY: [place] [id number] PATHOLOGIST [employer]OMER RECOVERY OPERATOR SHYANN OLIVIER M.D. Performed By: #### B MP, HS TROP, CBC, PT, PTT, BNP #### [address] Basophils/100 WBC (Bld) 0.7 % Normal . [facility] Comment on above: Performed By: #### B MP, HS TROP, CBC, PT, PTT, BNP #### [address] Eosinophils (Bld) [#/Vol] 0.1 10*3/uL Normal 0.0-0.45 [facility] Comment on above: Performed By: #### B MP, HS TROP, CBC, PT, PTT, BNP #### [address] Eosinophils/100 WBC (Bld) 1.3 % Normal . [facility] Comment on above: Performed By: #### B MP, HS TROP, CBC, PT, PTT, BNP #### [address] Erythrocyte distribution width (RBC) [Ratio] 15.2 % High 12.0-14.8 [facility] Comment on above: Performed By: #### B MP, HS TROP, CBC, PT, PTT, BNP #### [address] Hematocrit (Bld) [Volume fraction] 38.0 % Low 38.8-50.0 [facility] Comment on above: Performed By: #### B MP, HS TROP, CBC, PT, PTT, BNP #### [address] Hemoglobin (Bld) [Mass/Vol] 13.0 g/dL Normal 13.0-17.0 [facility] Comment on above: Performed By: #### B MP, HS TROP, CBC, PT, PTT, BNP #### [address] Lymphocytes (Bld) [#/Vol] 0.7 10*3/uL Low 1.00-4.8 [facility] Comment on above: Performed By: #### B MP, HS TROP, CBC, PT, PTT, BNP #### [address] Lymphocytes/100 WBC (Bld) 7.7 % Normal . [facility] Comment on above: Performed By: #### B MP, HS TROP, CBC, PT, PTT, BNP #### [address] MCH (RBC) [Entitic mass] 31.5 pg Normal 27.5-35.2 [facility] Comment on above: Performed By: #### B MP, HS TROP, CBC, PT, PTT, BNP #### [address] MCV (RBC) [Entitic vol] 91.7 fL Normal 83.5-101 [facility] Comment on above: Performed By: #### B MP, HS TROP, CBC, PT, PTT, BNP #### [address] Mean Corpuscular HGB Conc 34.3 g/dL Normal 32.5-35.6 [facility] Comment on above: Performed By: #### B MP, HS TROP, CBC, PT, PTT, BNP #### [address] Monocytes (Bld) [#/Vol] 0.9 10*3/uL High 0.0-0.8 [facility] Comment on above: Performed By: #### B MP, HS TROP, CBC, PT, PTT, BNP #### [place] [address] [place] Monocytes/100 WBC (Bld) 9.4 % Normal . [facility] Comment on above: Performed By: #### B MP, HS TROP, CBC, PT, PTT, BNP #### [place] [address] [place] Neutrophils (Bld) [#/Vol] 7.5 10*3/uL Normal 1.8-7.7 [facility] Comment on above: Performed By: #### B MP, HS TROP, CBC, PT, PTT, BNP #### [address] Neutrophils/100 WBC (Bld) 80.9 % Normal . [facility] Comment on above: Performed By: #### B MP, HS TROP, CBC, PT, PTT, BNP #### [place] [address] [place] Nucleated RBC/100 WBC (Bld) [Ratio] 0.0 % Normal 0-0.5 [facility] Comment on above: Performed By: #### B MP, HS TROP, CBC, PT, PTT, BNP #### [address] Platelet mean volume (Bld) [Entitic vol] 7.6 fL Normal 6.6-10.1 [facility] Comment on above: Performed By: #### B MP, HS TROP, CBC, PT, PTT, BNP #### [place] [address] [place] Platelets (Bld) [#/Vol] 385 10*3/uL Normal 150-450 [facility] Comment on above: Performed By: #### B MP, HS TROP, CBC, PT, PTT, BNP #### [place] [address] [place] RBC (Bld) [#/Vol] 4.14 10*6/uL Normal 3.90-5.60 [facility] Comment on above: Performed By: #### B MP, HS TROP, CBC, PT, PTT, BNP #### [facility] [address] WBC (Bld) [#/Vol] 9.3 10*3/uL Normal 4.5-11.0 [facility] Comment on above: Performed By: #### B MP, HS TROP, CBC, PT, PTT, BNP #### [facility] [address] Glucose Poct Glucometerson 0 12-11-2020 Glucose [Mass/Vol] 129 mg/dL Normal [facility] Comment on above: Result Comment: [place] Glucose Reference Range is dependent on time and content of last meal. Glucose of more than 200 mg/dL in a nonstressed, ambulatory subject supports the diagnosis of Diabetes Mellitus. PERFORMED BY: [place] [id number] PATHOLOGIST [employer]OMER RECOVERY OPERATOR SHYANN OLIVIER M.D. Performed By: #### B MP, HS TROP, CBC, PT, PTT, BNP #### [facility] [address] Partial Thromboplastin Timeo n 12-11-2020 aPTT Coag (Bld) [Time] 32.7 s Normal 25.1-36.5 [facility] Comment on above: Result Comment: PERF ORMED BY: [place] [id number] PATHOLOGIST [employer]OMER RECOVERY OPERATOR SHYANN OLIVIER M.D. Performed By: #### B MP, HS TROP, CBC, PT, PTT, BNP #### [facility] [address] Prothrombin Time INRon 12-11 INR Coag (PPP) [Relative time] 1.2 {INR} Normal [facility] Comment on above: Result Comment: INR Therapeutic [...] PTT, BNP #### [facility] [address] [place], [place] [id number] [facility] PT Coag (PPP) [Time] 13.8 s High 9.0-12.9 [facility] Comment on above: Performed By: #### B MP, HS TROP, CBC, PT, PTT, BNP #### [facility] [address] [place], [place] [id number] [facility] XR chest 1V portableon 12-11 XR chest 1V portable [facility] Main [place] [address] [place] [address] XRay Report Signed Patient: Vishal Duke MR#: [id number] : 1960 Acct:[id number] Age/Sex: 59 / M ADM Date: 12/08/20 Loc: Room: [address] [place] [address] Type: ADM IN Attending Dr: Leonardo Storey [...] Biju Ag M.D.12/11/2020 12:40 PM Dictation Location: [id number]-12 Transcribed By: JENNI 12/11/20 1240 Dictated By: Biju Ag MD 12/11/20 1236 Signed By: 12/11/20 1240 Normal [facility] Complete Blood Count Auto Di ffon 12-10-2020 Basophils (Bld) [#/Vol] 0.0 10*3/uL Normal 0.0-0.2 [facility] Comment on above: Result Comment: PERF ORMED BY: [place] [id number] PATHOLOGIST [employer]OMER RECOVERY OPERATOR SHYANN OLIVIER M.D. Performed By: #### B MP, HS TROP, CBC, PT, PTT, BNP #### [address] Basophils/100 WBC (Bld) 0.3 % Normal . [facility] Comment on above: Performed By: #### B MP, HS TROP, CBC, PT, PTT, BNP #### [address] Eosinophils (Bld) [#/Vol] 0.1 10*3/uL Normal 0.0-0.45 [facility] Comment on above: Performed By: #### B MP, HS TROP, CBC, PT, PTT, BNP #### [address] Eosinophils/100 WBC (Bld) 0.5 % Normal . [facility] Comment on above: Performed By: #### B MP, HS TROP, CBC, PT, PTT, BNP #### [address] Erythrocyte distribution width (RBC) [Ratio] 15.1 % High 12.0-14.8 [facility] Comment on above: Performed By: #### B MP, HS TROP, CBC, PT, PTT, BNP #### [address] Hematocrit (Bld) [Volume fraction] 39.5 % Normal 38.8-50.0 [facility] Comment on above: Performed By: #### B MP, HS TROP, CBC, PT, PTT, BNP #### [address] Hemoglobin (Bld) [Mass/Vol] 13.1 g/dL Normal 13.0-17.0 [facility] Comment on above: Performed By: #### B MP, HS TROP, CBC, PT, PTT, BNP #### [address] Lymphocytes (Bld) [#/Vol] 0.5 10*3/uL Low 1.00-4.8 [facility] Comment on above: Performed By: #### B MP, HS TROP, CBC, PT, PTT, BNP #### [address] Lymphocytes/100 WBC (Bld) 4.0 % Normal . [facility] Comment on above: Performed By: #### B MP, HS TROP, CBC, PT, PTT, BNP #### [address] MCH (RBC) [Entitic mass] 31.2 pg Normal 27.5-35.2 [facility] Comment on above: Performed By: #### B MP, HS TROP, CBC, PT, PTT, BNP #### [address] MCV (RBC) [Entitic vol] 94.1 fL Normal 83.5-101 [facility] Comment on above: Performed By: #### B MP, HS TROP, CBC, PT, PTT, BNP #### [address] Mean Corpuscular HGB Conc 33.2 g/dL Normal 32.5-35.6 [facility] Comment on above: Performed By: #### B MP, HS TROP, CBC, PT, PTT, BNP #### [address] Monocytes (Bld) [#/Vol] 0.8 10*3/uL Normal 0.0-0.8 [facility] Comment on above: Performed By: #### B MP, HS TROP, CBC, PT, PTT, BNP #### [facility] [address] Monocytes/100 WBC (Bld) 6.6 % Normal . [facility] Comment on above: Performed By: #### B MP, HS TROP, CBC, PT, PTT, BNP #### [facility] [address] Neutrophils (Bld) [#/Vol] 10.5 10*3/uL High 1.8-7.7 [facility] Comment on above: Performed By: #### B MP, HS TROP, CBC, PT, PTT, BNP #### [facility] [address] Neutrophils/100 WBC (Bld) 88.6 % Normal . [facility] Comment on above: Performed By: #### B MP, HS TROP, CBC, PT, PTT, BNP #### [facility] [address] Nucleated RBC/100 WBC (Bld) [Ratio] 0.1 % Normal 0-0.5 [facility] Comment on above: Performed By: #### B MP, HS TROP, CBC, PT, PTT, BNP #### [facility] [address] Platelet mean volume (Bld) [Entitic vol] 8.1 fL Normal 6.6-10.1 [facility] Comment on above: Performed By: #### B MP, HS TROP, CBC, PT, PTT, BNP #### [facility] [address] [place] [address] [place] Platelets (Bld) [#/Vol] 403 10*3/uL Normal 150-450 [facility] Comment on above: Performed By: #### B MP, HS TROP, CBC, PT, PTT, BNP #### [place] [address] [place] RBC (Bld) [#/Vol] 4.20 10*6/uL Normal 3.90-5.60 [facility] Comment on above: Performed By: #### B MP, HS TROP, CBC, PT, PTT, BNP #### [address] WBC (Bld) [#/Vol] 11.9 10*3/uL High 4.5-11.0 [facility] Comment on above: Performed By: #### B MP, HS TROP, CBC, PT, PTT, BNP #### [address] Comprehensive Metabolic Pane nitin 12-10-2020 Albumin [Mass/Vol] 3.1 g/dL Low 3.2-5.5 [facility] Comment on above: Result Comment: --- 12/10/201240 --- Alb previously reported as: 2.8 L gm/dL Performed By: #### B MP, HS TROP, CBC, PT, PTT, BNP #### [address] Albumin/Globulin [Mass ratio] 0.9 {ratio} Normal [facility] Comment on above: Result Comment: --- 12/10/201240 --- A/G Ratio previously reported as: 0.8 Performed By: #### B MP, HS TROP, CBC, PT, PTT, BNP #### [address] ALP [Catalytic activity/Vol] 98 U/L High 32-92 [facility] Comment on above: Result Comment: --- 12/10/201241 --- Alk Phos previously reported as: 91 U/L Performed By: #### B MP, HS TROP, CBC, PT, PTT, BNP #### [address] ALT [Catalytic activity/Vol] 123 U/L High 10-60 [facility] Comment on above: Result Comment: --- 12/10/201241 --- ALT previously reported as: 116 H U/L Performed By: #### B MP, HS TROP, CBC, PT, PTT, BNP #### [address] AST [Catalytic activity/Vol] 91 U/L High 10-42 [facility] Comment on above: Result Comment: --- 12/10/201241 --- AST previously reported as: 82 H U/L Performed By: #### B MP, HS TROP, CBC, PT, PTT, BNP #### [address] Bilirubin [Mass/Vol] 0.7 mg/dL Normal 0.3-1.2 [facility] Comment on above: Result Comment: --- 12/10/201240 --- TOTAL BILI previously reported as: 0.9 mg/dL Performed By: #### B MP, HS TROP, CBC, PT, PTT, BNP #### [facility] [address] [place] [address] Calcium [Mass/Vol] 9.0 mg/dL Normal 8.2-10.2 [facility] Comment on above: Result Comment: --- 12/10/201240 --- CA previously reported as: 8.2 mg/dL Performed By: #### B MP, HS TROP, CBC, PT, PTT, BNP #### [facility] [address] [place] [address] Chloride [Moles/Vol] 99 mmol/L Normal 95-114 [facility] Comment on above: Result Comment: --- 12/10/201240 --- CL previously reported as: 97 mmol/L Performed By: #### B MP, HS TROP, CBC, PT, PTT, BNP #### [facility] [address] [place] [address] CO2 [Moles/Vol] 20.4 mmol/L Low 22.0-30.0 [facility] Comment on above: Result Comment: --- 12/10/201240 --- CO2 previously reported as: 21.7 L mmol/L Performed By: #### B MP, HS TROP, CBC, PT, PTT, BNP #### [address] Creatinine [Mass/Vol] 1.09 mg/dL Normal 0.64-1.27 [facility] Comment on above: Result Comment: --- 12/10/201239 --- Creat previously reported as: 1.01 mg/dL Performed By: #### B MP, HS TROP, CBC, PT, PTT, BNP #### [facility] [address] [place] [address] Creatinine Clr Calc Pharmacy 77.72 [facility] Comment on above: Result Comment: --- 12/10/201239 --- Creat Calc PHA previously reported as: 83.87 PERFORMED BY: [place] [id number] PATHOLOGIST [employer]ER RECOVERY OPERATOR SHYANN OLIVIER M.D. Performed By: #### B MP, HS TROP, CBC, PT, PTT, BNP #### [address] Estimated GFR ( Nata > 60 [facility] Comment on above: Result Comment: --- 12/10/201226 --- GFReAA previously reported as: > 60 mL/Min GFR estimated reference range: According to KDOQI guidelines, <60 ml/min/1.73m2 is sufficient to diagnose a patient with chronic kidney disease. Performed By: #### B MP, HS TROP, CBC, PT, PTT, BNP #### [facility] [address] [place] [address] Estimated GFR (Non- Am > 60 [facility] Comment on above: Result Comment: --- 12/10/201226 --- GFRe previously reported as: > 60 mL/Min Performed By: #### B MP, HS TROP, CBC, PT, PTT, BNP #### [address] Globulin (S) [Mass/Vol] 3.3 g/dL [facility] Comment on above: Result Comment: --- 12/10/201226 --- Glob previously reported as: 3.3 gm/dL Performed By: #### B MP, HS TROP, CBC, PT, PTT, BNP #### [address] Glucose [Mass/Vol] 160 mg/dL High 70-100 [facility] Comment on above: Result Comment: Resu [...] HS TROP, CBC, PT, PTT, BNP #### [address] Potassium [Moles/Vol] 4.1 mmol/L Normal 3.5-5.1 [facility] Comment on above: Result Comment: --- 12/10/20 124 --- K previously reported as: 3.8 mmol/L Performed By: #### B MP, HS TROP, CBC, PT, PTT, BNP #### [address] Protein [Mass/Vol] 6.4 g/dL Normal 6.1-7.9 [facility] Comment on above: Result Comment: --- 12/10/201240 --- TP previously reported as: 6.1 gm/dL Performed By: #### B MP, HS TROP, CBC, PT, PTT, BNP #### [address] Sodium [Moles/Vol] 134 mmol/L Low 136-146 [facility] Comment on above: Result Comment: --- 12/10/201240 --- NA previously reported as: 128 # L mmol/L Performed By: #### B MP, HS TROP, CBC, PT, PTT, BNP #### [address] Urea nitrogen [Mass/Vol] 10 mg/dL Normal 9-23 [facility] Comment on above: Result Comment: --- 12/10/20 123 --- BUN previously reported as: 10 mg/dL Performed By: #### B MP, HS TROP, CBC, PT, PTT, BNP #### [place] [id number] [place] ECG 12 lead ECGon 12-10-2020 ECG 12 lead ECG [facility] [place] [address] Electrocardiograph Report Signed Patient: Vishal Duke MR#: [id number] : 1960 Acct:[id number] Age/Sex: 59 / M ADM Date: 12/08/20 Loc: 4C Room: [address] [place] [address] Type: ADM IN Attending Dr: Leonardo Storey [...] in Lateral leads Confirmed by DAT FRANK [facility], KADEN ([id number]) on 12/10/2020 9:00:58 AM Referred By: Electronically Signed By:KADEN DAUGHERTY MD [facility] Transcribed By: MUS Dictated By: Kaden Daugherty MD, FACC 12/10/20 0652 Signed By: 12/10/20 0901 Normal [facility] ECH echo transthoracicon ECH echo transthoracic [facility] Main [place] [id number] Echocardiogram Signed Patient: Vishal Duke MR#: [id number] : 1960 Acct:[id number] Age/Sex: 59 / M ADM Date: 12/08/20 Loc: Room: [address] [place] [address] Type: ADM IN Attending Dr: Leonardo Storey MD Ordering Provider: Leonardo Storey MD Date of Service: 12/09/20 ECH/ECH echo transthoracic: torsades de pointes Copies to: MD Giovana Cheng DO Weight: 192 lb Performed By: Dmoinique Garza RDCS BSA: 2.1 m2 BP: 106/56 [...] 12/10/20 0816 Signed By: 12/10/20 1150 Normal [facility] Glucose Poct Glucometerson 0 12-10-2020 Glucose [Mass/Vol] 157 mg/dL Normal [facility] Comment on above: Result Comment: [place] Glucose Reference Range is dependent on time and content of last meal. Glucose of more than 200 mg/dL in a nonstressed, ambulatory subject supports the diagnosis of Diabetes Mellitus. PERFORMED BY: [place] [id number] PATHOLOGIST [employer]OMER RECOVERY OPERATOR SHYANN OLIVIER M.D. Performed By: #### B MP, HS TROP, CBC, PT, PTT, BNP #### [address] Commemt1 Glu2: Cleaned Meter Normal [facility] Comment on above: Result Comment: PERF ORMED BY: [place] [id number] PATHOLOGIST MONOMER RECOVERY OPERATOR SHYANN OLIVIER M.D. Performed By: #### B MP, HS TROP, CBC, PT, PTT, BNP #### [address] Glucose [Mass/Vol] 122 mg/dL Normal [facility] Comment on above: Result Comment: [place] om Glucose Reference Range is dependent on time and content of last meal. Glucose of more than 200 mg/dL in a nonstressed, ambulatory subject supports the diagnosis of Diabetes Mellitus. Performed By: #### B MP, HS TROP, CBC, PT, PTT, BNP #### [facility] [address] [place] [address] [place] Glucose [Mass/Vol] 179 mg/dL Normal [facility] Comment on above: Result Comment: [place] Glucose Reference Range is dependent on time and content of last meal. Glucose of more than 200 mg/dL in a nonstressed, ambulatory subject supports the diagnosis of Diabetes Mellitus. PERFORMED BY: [facility] [address] [place] [phone] PATHOLOGIST MONOMER RECOVERY OPERATOR SHYANN OLIVIER M.D. Performed By: #### B MP, HS TROP, CBC, PT, PTT, BNP #### [address] [address] [facility] Troponin I High Sensitivityo n 12-10-2020 Troponin I High Sensitivity 9777 pg/mL Off scale high 0-20 [facility] Comment on above: Result Comment: PERF ORMED BY: [address] [address] PATHOLOGIST MONOMER RECOVERY OPERATOR SHYANN OLIVIER M.D. Performed By: #### B MP, HS TROP, CBC, PT, PTT, BNP #### [address] [address] [facility] XR chest 1V portableon 12-10 XR chest 1V portable [facility] Main [place] [address] [place] [address] XRay Report Signed Patient: Vishal Duke MR#: [id number] : 1960 Acct:[id number] Age/Sex: 59 / M ADM Date: 12/08/20 Loc: Room: [address] [place] [address] Type: ADM IN Attending Dr: Leonardo Storey [...] Ajith Saleh M.D.12/10/2020 8:05 AM Dictation Location: [place] [address] Transcribed By: [facility] 12/10/20804 Dictated By: Ajith Saleh II, MD 12/10/20802 Signed By: 12/10/20804 [facility] Basic Metabolic Panelon 11-16 Calcium [Mass/Vol] 9.6 mg/dL Normal 8.2-10.2 [facility] Comment on above: Performed By: #### B MP, HS TROP, CBC, PT, PTT, BNP #### [address] Chloride [Moles/Vol] 101 mmol/L Normal 95-114 [facility] Comment on above: Performed By: #### B MP, HS TROP, CBC, PT, PTT, BNP #### [address] CO2 [Moles/Vol] 23.3 mmol/L Normal 22.0-30.0 [facility] Comment on above: Performed By: #### B MP, HS TROP, CBC, PT, PTT, BNP #### [address] Creatinine [Mass/Vol] 0.97 mg/dL Normal 0.64-1.27 [facility] Comment on above: Performed By: #### B MP, HS TROP, CBC, PT, PTT, BNP #### [address] Creatinine Clr Calc Pharmacy 87.33 [facility] Comment on above: Result Comment: PERF ORMED BY: [place] [id number] PATHOLOGIST MONOMER RECOVERY OPERATOR SHYANN OLIVIER M.D. Performed By: #### B MP, HS TROP, CBC, PT, PTT, BNP #### [address] Estimated GFR ( Nata > 60 [facility] Comment on above: Result Comment: GFR estimated reference range: According to KDOQI guidelines, <60 ml/min/1.73m2 is sufficient to diagnose a patient with chronic kidney disease. Performed By: #### B MP, HS TROP, CBC, PT, PTT, BNP #### [address] Estimated GFR (Non- Am > 60 Normal [facility] Comment on above: Performed By: #### B MP, HS TROP, CBC, PT, PTT, BNP #### [facility] [address] Glucose [Mass/Vol] 128 mg/dL High 70-100 [facility] Comment on above: Result Comment: [place] Glucose Reference Range is dependent on time and content of last meal. Glucose of more than 200 mg/dL in a nonstressed, ambulatory subject supports the diagnosis of Diabetes Mellitus. ADA recommended reference range Performed By: #### B MP, HS TROP, CBC, PT, PTT, BNP #### [address] Potassium [Moles/Vol] 4.2 mmol/L Normal 3.5-5.1 [facility] Comment on above: Performed By: #### B MP, HS TROP, CBC, PT, PTT, BNP #### [address] Sodium [Moles/Vol] 139 mmol/L Normal 136-146 [facility] Comment on above: Performed By: #### B MP, HS TROP, CBC, PT, PTT, BNP #### [address] Urea nitrogen [Mass/Vol] 15 mg/dL Normal 9-23 [facility] Comment on above: Performed By: #### B MP, HS TROP, CBC, PT, PTT, BNP #### [address] Complete Blood Count Auto Di ffon 12-09-2020 Basophils (Bld) [#/Vol] 0.1 10*3/uL Normal 0.0-0.2 [facility] Comment on above: Result Comment: PERF ORMED BY: [place] [id number] PATHOLOGIST MONOMER RECOVERY OPERATOR SHYANN OLIVIER M.D. Performed By: #### B MP, HS TROP, CBC, PT, PTT, BNP #### [address] Basophils/100 WBC (Bld) 1.0 % Normal . [facility] Comment on above: Performed By: #### B MP, HS TROP, CBC, PT, PTT, BNP #### [address] Eosinophils (Bld) [#/Vol] 0.2 10*3/uL Normal 0.0-0.45 [facility] Comment on above: Performed By: #### B MP, HS TROP, CBC, PT, PTT, BNP #### [address] Eosinophils/100 WBC (Bld) 2.8 % Normal . [facility] Comment on above: Performed By: #### B MP, HS TROP, CBC, PT, PTT, BNP #### [address] Erythrocyte distribution width (RBC) [Ratio] 15.0 % High 12.0-14.8 [facility] Comment on above: Performed By: #### B MP, HS TROP, CBC, PT, PTT, BNP #### [address] Hematocrit (Bld) [Volume fraction] 41.9 % Normal 38.8-50.0 [facility] Comment on above: Performed By: #### B MP, HS TROP, CBC, PT, PTT, BNP #### [address] Hemoglobin (Bld) [Mass/Vol] 14.2 g/dL Normal 13.0-17.0 [facility] Comment on above: Performed By: #### B MP, HS TROP, CBC, PT, PTT, BNP #### [place] [address] [place] Lymphocytes (Bld) [#/Vol] 1.1 10*3/uL Normal 1.00-4.8 [facility] Comment on above: Performed By: #### B MP, HS TROP, CBC, PT, PTT, BNP #### [address] Lymphocytes/100 WBC (Bld) 13.9 % Normal . [facility] Comment on above: Performed By: #### B MP, HS TROP, CBC, PT, PTT, BNP #### [address] MCH (RBC) [Entitic mass] 31.4 pg Normal 27.5-35.2 [facility] Comment on above: Performed By: #### B MP, HS TROP, CBC, PT, PTT, BNP #### [address] MCV (RBC) [Entitic vol] 92.5 fL Normal 83.5-101 [facility] Comment on above: Performed By: #### B MP, HS TROP, CBC, PT, PTT, BNP #### [address] Mean Corpuscular HGB Conc 33.9 g/dL Normal 32.5-35.6 [facility] Comment on above: Performed By: #### B MP, HS TROP, CBC, PT, PTT, BNP #### [address] Monocytes (Bld) [#/Vol] 0.6 10*3/uL Normal 0.0-0.8 [facility] Comment on above: Performed By: #### B MP, HS TROP, CBC, PT, PTT, BNP #### [address] Monocytes/100 WBC (Bld) 8.3 % Normal . [facility] Comment on above: Performed By: #### B MP, HS TROP, CBC, PT, PTT, BNP #### [address] Neutrophils (Bld) [#/Vol] 5.8 10*3/uL Normal 1.8-7.7 [facility] Comment on above: Performed By: #### B MP, HS TROP, CBC, PT, PTT, BNP #### [facility] [address] Neutrophils/100 WBC (Bld) 74.0 % Normal . [facility] Comment on above: Performed By: #### B MP, HS TROP, CBC, PT, PTT, BNP #### [facility] [address] Nucleated RBC/100 WBC (Bld) [Ratio] 0.0 % Normal 0-0.5 [facility] Comment on above: Performed By: #### B MP, HS TROP, CBC, PT, PTT, BNP #### [address] Platelet mean volume (Bld) [Entitic vol] 8.0 fL Normal 6.6-10.1 [facility] Comment on above: Performed By: #### B MP, HS TROP, CBC, PT, PTT, BNP #### [address] Platelets (Bld) [#/Vol] 409 10*3/uL Normal 150-450 [facility] Comment on above: Performed By: #### B MP, HS TROP, CBC, PT, PTT, BNP #### [address] RBC (Bld) [#/Vol] 4.53 10*6/uL Normal 3.90-5.60 [facility] Comment on above: Performed By: #### B MP, HS TROP, CBC, PT, PTT, BNP #### [address] WBC (Bld) [#/Vol] 7.8 10*3/uL Normal 4.5-11.0 [facility] Comment on above: Performed By: #### B MP, HS TROP, CBC, PT, PTT, BNP #### [place] [address] [place] Creatine Kinaseon 12-09-2020 CK [Catalytic activity/Vol] 128 U/L Normal 22-269 [facility] Comment on above: Order Comment: get a ll labs @0315 per rn Performed By: #### B MP, HS TROP, CBC, PT, PTT, BNP #### [facility] [address] [place] [id number] [place] Creatinine Kinase MBon 12-09 CK.MB [Mass/Vol] 15.6 ng/mL High 0.6-6.3 [facility] Comment on above: Order Comment: get a ll labs @0315 per rn Performed By: #### B MP, HS TROP, CBC, PT, PTT, BNP #### [facility] [address] CKMB Relative Index 12.1 % High 0.00-2.50 [facility] Comment on above: Order Comment: get a ll labs @0315 per rn Performed By: #### B MP, HS TROP, CBC, PT, PTT, BNP #### [facility] [address] [place] [address] [place] ECG 12 lead ECGon 12-09-2020 ECG 12 lead ECG [facility] Main [place] [address] [place] [address] Electrocardiograph Report Signed Patient: Vishal Duke MR#: [id number] : 1960 Acct:[id number] Age/Sex: 59 / M ADM Date: 12/08/20 Loc: Room: [address] [place] [address] Type: ADM IN Attending Dr: Leonardo Storey [...] By: MUS Dictated By: Giovana Fu DO 12/09/2016 Signed By: 12/09/20 1315 Normal [facility] Magnesiumon 12-09-2020 Magnesium [Mass/Vol] 2.0 mg/dL Normal 1.6-2.6 [facility] Comment on above: Order Comment: Comme nt Add on to am Result Comment: PERF ORMED BY: [place] [id number] PATHOLOGIST MONOMER RECOVERY OPERATOR SHYANN OLIVIER M.D. Performed By: #### B MP, HS TROP, CBC, PT, PTT, BNP #### [facility] [address] [place] [address] Partial Thromboplastin Timeo n 12-09-2020 aPTT Coag (Bld) [Time] 37.7 s High 25.1-36.5 [facility] Comment on above: Result Comment: PERF ORMED BY: [place] [id number] PATHOLOGIST MONOMER RECOVERY OPERATOR SHYANN OLIVIER M.D. Performed By: #### B MP, HS TROP, CBC, PT, PTT, BNP #### [facility] [address] [place], [place] [id number] [place] Prothrombin Time INRon 12-09 INR Coag (PPP) [Relative time] 1.2 {INR} Normal [facility] Comment on above: Result Comment: INR Therapeutic [...] PTT, BNP #### [facility] [address] [place] [address] PT Coag (PPP) [Time] 13.8 s High 9.0-12.9 [facility] Comment on above: Performed By: #### B MP, HS TROP, CBC, PT, PTT, BNP #### [place] [address] [place] Troponin I High Sensitivityo n 12-09-2020 Troponin I High Sensitivity 1641 pg/mL Off scale high 0-20 [facility] Comment on above: Order Comment: * RN to call lab when pt returns hko Result Comment: PERF ORMED BY: [place] [id number] PATHOLOGIST MONOMER RECOVERY OPERATOR SHYANN OLIVIER M.D. Performed By: #### B MP, HS TROP, CBC, PT, PTT, BNP #### [address] Troponin I High Sensitivity 2472 pg/mL Off scale high 0-20 [facility] Comment on above: Order Comment: Comme nt during code blue Result Comment: PERF ORMED BY: [place] [id number] PATHOLOGIST MONOMER RECOVERY OPERATOR SHYANN OLIVIER M.D. Performed By: #### B MP, HS TROP, CBC, PT, PTT, BNP #### [address] Troponin I High Sensitivity 1363 pg/mL Off scale high 0-20 [facility] Comment on above: Order Comment: get a ll labs @0315 per rn Result Comment: PERF ORMED BY: [place] [id number] PATHOLOGIST MONOMER RECOVERY OPERATOR SHYANN OLIVIER M.D. Performed By: #### B MP, HS TROP, CBC, PT, PTT, BNP #### [address] B-Type Natriuretic Peptideon 12-08-2020 Natriuretic peptide B (Bld) [Mass/Vol] 199.0 pg/mL High 5-100 [facility] Comment on above: Result Comment: PERF ORMED BY: [place] [id number] PATHOLOGIST MONOMER RECOVERY OPERATOR SHYANN OLIVIER M.D. Performed By: #### B MP, HS TROP, CBC, PT, PTT, BNP #### [address] Basic Metabolic Panelon 11-16 Calcium [Mass/Vol] 10.1 mg/dL Normal 8.2-10.2 [facility] Comment on above: Performed By: #### B MP, HS TROP, CBC, PT, PTT, BNP #### [address] Chloride [Moles/Vol] 101 mmol/L Normal 95-114 [facility] Comment on above: Performed By: #### B MP, HS TROP, CBC, PT, PTT, BNP #### [address] CO2 [Moles/Vol] 23.2 mmol/L Normal 22.0-30.0 [facility] Comment on above: Performed By: #### B MP, HS TROP, CBC, PT, PTT, BNP #### [address] Creatinine [Mass/Vol] 1.15 mg/dL Normal 0.64-1.27 [facility] Comment on above: Performed By: #### B MP, HS TROP, CBC, PT, PTT, BNP #### [address] Creatinine Clr Calc Pharmacy 81.22 [facility] Comment on above: Result Comment: PERF ORMED BY: [place] [id number] PATHOLOGIST MONOMER RECOVERY OPERATOR SHYANN OLIVIER M.D. Performed By: #### B MP, HS TROP, CBC, PT, PTT, BNP #### [address] Estimated GFR ( Nata > 60 Normal [facility] Comment on above: Result Comment: GFR estimated reference range: According to KDOQI guidelines, <60 ml/min/1.73m2 is sufficient to diagnose a patient with chronic kidney disease. Performed By: #### B MP, HS TROP, CBC, PT, PTT, BNP #### [facility] [address] Estimated GFR (Non- Am > 60 Normal [facility] Comment on above: Performed By: #### B MP, HS TROP, CBC, PT, PTT, BNP #### [facility] [address] Glucose [Mass/Vol] 153 mg/dL High 70-100 [facility] Comment on above: Result Comment: [place] om Glucose Reference Range is dependent on time and content of last meal. Glucose of more than 200 mg/dL in a nonstressed, ambulatory subject supports the diagnosis of Diabetes Mellitus. ADA recommended reference range Performed By: #### B MP, HS TROP, CBC, PT, PTT, BNP #### [facility] [address] Potassium [Moles/Vol] 4.5 mmol/L Normal 3.5-5.1 [facility] Comment on above: Performed By: #### B MP, HS TROP, CBC, PT, PTT, BNP #### [facility] [address] Sodium [Moles/Vol] 139 mmol/L Normal 136-146 [facility] Comment on above: Performed By: #### B MP, HS TROP, CBC, PT, PTT, BNP #### [address] Urea nitrogen [Mass/Vol] 15 mg/dL Normal 9-23 [facility] Comment on above: Performed By: #### B MP, HS TROP, CBC, PT, PTT, BNP #### [address] COVID-19 Antigenon 1 COVID-19 Antigen Healthcare Worker?: Toro Mccord Reference Tessa Reference Negative SARS-CoV+SARS-CoV-2 (COVID-19) Ag [Presence] in Respiratory specimen by Rapid immunoassay Negative for SARS Antigen by GISSEL COVID19 Blank Space Tessa Disclaimer Negative results, from patients with [...] Disclaimer consistent with COVID-19. COVID19 Blank Space Tessa Disclaimer The Tessa SARS Antigen GISSEL does not differentiate Tessa Disclaimer between SARS-CoV and SARS-CoV-2. COVID19 Blank Space Tessa Disclaimer This test was developed and its performance Tessa Disclaimer characteristic determined by [employer] and Tessa Disclaimer validated at [facility]. This Tessa Disclaimer test has not been [...] Emergency Use Authorization for Coronavirus Tessa Disclaimer isease-2018 during the Public Health Emergency) Tessa Disclaimer [...] is terminated or revoked sooner. PERFORMED BY: [place] [id number] PATHOLOGIST MONOMER RECOVERY OPERATOR SHYANN OLIVIER M.D. Normal [facility] Comment on above: Performed By: #### S OFIANEG, COVID-19 [place], COVID 19 [facility] #### [address] COVID-19 [facility] 12-08-2020 SARS-CoV-2 (COVID-19) RNA ADELINE+probe Ql (Unsp spec) Negative Normal Negative [facility] Comment on above: Order Comment: Healt hcare Worker?: N Result Comment: Testing for SARS-CoV-2 by RT-PCR This test was developed and its performance characteristics determined by Jessica, Surface [employer]ension (Analyze Re) and validated at the [facility]. This test has not been FDA cleared [...] is terminated or revoked sooner. PERFORMED BY: [place] [id number] PATHOLOGIST MONOMER RECOVERY OPERATOR SHYANN OLIVIER M.D. Performed By: #### B MP, HS TROP, CBC, PT, PTT, BNP #### [address] abdomen pelvis wo conon 0 12-08-2020 CT abdomen pelvis wo con [facility] Main [place] [address] [place] [address] CT Scan Report Signed Patient: Vishal Duke MR#: [id number] : 1960 Acct:[id number] Age/Sex: 59 / M ADM Date: 12/08/20 Loc: ER Room: Type: [facility] ER Attending Dr: Ordering Provider: [...] Biju Ag M.D.12/08/2020 11:16 AM Dictation Location: [place] [address] Transcribed By: [facility] 12/08/20 1116 Dictated By: Biju Ag MD 12/08/20 1102 Signed By: 12/08/20 1116 Normal [facility] Complete Blood Count Auto Di ffon 12-08-2020 Basophils (Bld) [#/Vol] 0.1 10*3/uL Normal 0.0-0.2 [facility] Comment on above: Result Comment: PERF ORMED BY: [place] [id number] PATHOLOGIST MONOMER RECOVERY OPERATOR SHYANN OLIVIER M.D. Performed By: #### B MP, HS TROP, CBC, PT, PTT, BNP #### [address] Basophils/100 WBC (Bld) 0.6 % Normal . [facility] Comment on above: Performed By: #### B MP, HS TROP, CBC, PT, PTT, BNP #### [address] Eosinophils (Bld) [#/Vol] 0.2 10*3/uL Normal 0.0-0.45 [facility] Comment on above: Performed By: #### B MP, HS TROP, CBC, PT, PTT, BNP #### [address] Eosinophils/100 WBC (Bld) 2.5 % Normal . [facility] Comment on above: Performed By: #### B MP, HS TROP, CBC, PT, PTT, BNP #### [address] Erythrocyte distribution width (RBC) [Ratio] 15.2 % High 12.0-14.8 [facility] Comment on above: Performed By: #### B MP, HS TROP, CBC, PT, PTT, BNP #### [address] Hematocrit (Bld) [Volume fraction] 41.7 % Normal 38.8-50.0 [facility] Comment on above: Performed By: #### B MP, HS TROP, CBC, PT, PTT, BNP #### [address] Hemoglobin (Bld) [Mass/Vol] 14.0 g/dL Normal 13.0-17.0 [facility] Comment on above: Performed By: #### B MP, HS TROP, CBC, PT, PTT, BNP #### [place] [address] [place] Lymphocytes (Bld) [#/Vol] 0.9 10*3/uL Low 1.00-4.8 [facility] Comment on above: Performed By: #### B MP, HS TROP, CBC, PT, PTT, BNP #### [place] [address] [place] Lymphocytes/100 WBC (Bld) 10.9 % Normal . [facility] Comment on above: Performed By: #### B MP, HS TROP, CBC, PT, PTT, BNP #### [address] MCH (RBC) [Entitic mass] 31.5 pg Normal 27.5-35.2 [facility] Comment on above: Performed By: #### B MP, HS TROP, CBC, PT, PTT, BNP #### [address] MCV (RBC) [Entitic vol] 93.7 fL Normal 83.5-101 [facility] Comment on above: Performed By: #### B MP, HS TROP, CBC, PT, PTT, BNP #### [address] Mean Corpuscular HGB Conc 33.6 g/dL Normal 32.5-35.6 [facility] Comment on above: Performed By: #### B MP, HS TROP, CBC, PT, PTT, BNP #### [address] Monocytes (Bld) [#/Vol] 0.6 10*3/uL Normal 0.0-0.8 [facility] Comment on above: Performed By: #### B MP, HS TROP, CBC, PT, PTT, BNP #### [address] Monocytes/100 WBC (Bld) 7.4 % Normal . [facility] Comment on above: Performed By: #### B MP, HS TROP, CBC, PT, PTT, BNP #### [address] Neutrophils (Bld) [#/Vol] 6.7 10*3/uL Normal 1.8-7.7 [facility] Comment on above: Performed By: #### B MP, HS TROP, CBC, PT, PTT, BNP #### [address] Neutrophils/100 WBC (Bld) 78.6 % Normal . [facility] Comment on above: Performed By: #### B MP, HS TROP, CBC, PT, PTT, BNP #### [address] Nucleated RBC/100 WBC (Bld) [Ratio] 0.1 % Normal 0-0.5 [facility] Comment on above: Performed By: #### B MP, HS TROP, CBC, PT, PTT, BNP #### [address] Platelet mean volume (Bld) [Entitic vol] 8.2 fL Normal 6.6-10.1 [facility] Comment on above: Performed By: #### B MP, HS TROP, CBC, PT, PTT, BNP #### [address] Platelets (Bld) [#/Vol] 414 10*3/uL Normal 150-450 [facility] Comment on above: Performed By: #### B MP, HS TROP, CBC, PT, PTT, BNP #### [address] RBC (Bld) [#/Vol] 4.44 10*6/uL Normal 3.90-5.60 [facility] Comment on above: Performed By: #### B MP, HS TROP, CBC, PT, PTT, BNP #### [address] WBC (Bld) [#/Vol] 8.5 10*3/uL Normal 4.5-11.0 [facility] Comment on above: Performed By: #### B MP, HS TROP, CBC, PT, PTT, BNP #### [address] Basophils (Bld) [#/Vol] 0.1 10*3/uL Normal 0.0-0.2 [facility] Comment on above: Result Comment: PERF ORMED BY: [place] [id number] PATHOLOGIST MONOMER RECOVERY OPERATOR SHYANN OLIVIER M.D. Performed By: #### B MP, HS TROP, CBC, PT, PTT, BNP #### [address] Basophils/100 WBC (Bld) 0.7 % Normal . [facility] Comment on above: Performed By: #### B MP, HS TROP, CBC, PT, PTT, BNP #### [address] Eosinophils (Bld) [#/Vol] 0.2 10*3/uL Normal 0.0-0.45 [facility] Comment on above: Performed By: #### B MP, HS TROP, CBC, PT, PTT, BNP #### [address] Eosinophils/100 WBC (Bld) 1.8 % Normal . [facility] Comment on above: Performed By: #### B MP, HS TROP, CBC, PT, PTT, BNP #### [address] Erythrocyte distribution width (RBC) [Ratio] 15.5 % High 12.0-14.8 [facility] Comment on above: Performed By: #### B MP, HS TROP, CBC, PT, PTT, BNP #### [address] Hematocrit (Bld) [Volume fraction] 42.0 % Normal 38.8-50.0 [facility] Comment on above: Performed By: #### B MP, HS TROP, CBC, PT, PTT, BNP #### [address] Hemoglobin (Bld) [Mass/Vol] 14.2 g/dL Normal 13.0-17.0 [facility] Comment on above: Performed By: #### B MP, HS TROP, CBC, PT, PTT, BNP #### [address] Lymphocytes (Bld) [#/Vol] 0.8 10*3/uL Low 1.00-4.8 [facility] Comment on above: Performed By: #### B MP, HS TROP, CBC, PT, PTT, BNP #### [address] Lymphocytes/100 WBC (Bld) 7.7 % Normal . [facility] Comment on above: Performed By: #### B MP, HS TROP, CBC, PT, PTT, BNP #### [address] MCH (RBC) [Entitic mass] 31.3 pg Normal 27.5-35.2 [facility] Comment on above: Performed By: #### B MP, HS TROP, CBC, PT, PTT, BNP #### [address] MCV (RBC) [Entitic vol] 92.4 fL Normal 83.5-101 [facility] Comment on above: Performed By: #### B MP, HS TROP, CBC, PT, PTT, BNP #### [address] Mean Corpuscular HGB Conc 33.9 g/dL Normal 32.5-35.6 [facility] Comment on above: Performed By: #### B MP, HS TROP, CBC, PT, PTT, BNP #### [address] Monocytes (Bld) [#/Vol] 0.8 10*3/uL Normal 0.0-0.8 [facility] Comment on above: Performed By: #### B MP, HS TROP, CBC, PT, PTT, BNP #### [address] Monocytes/100 WBC (Bld) 7.5 % Normal . [facility] Comment on above: Performed By: #### B MP, HS TROP, CBC, PT, PTT, BNP #### [address] Neutrophils (Bld) [#/Vol] 9.0 10*3/uL High 1.8-7.7 [facility] Comment on above: Performed By: #### B MP, HS TROP, CBC, PT, PTT, BNP #### [address] Neutrophils/100 WBC (Bld) 82.3 % Normal . [facility] Comment on above: Performed By: #### B MP, HS TROP, CBC, PT, PTT, BNP #### [address] Nucleated RBC/100 WBC (Bld) [Ratio] 0.1 % Normal 0-0.5 [facility] Comment on above: Performed By: #### B MP, HS TROP, CBC, PT, PTT, BNP #### [address] Platelet mean volume (Bld) [Entitic vol] 7.9 fL Normal 6.6-10.1 [facility] Comment on above: Performed By: #### B MP, HS TROP, CBC, PT, PTT, BNP #### [address] Platelets (Bld) [#/Vol] 463 10*3/uL High 150-450 [facility] Comment on above: Performed By: #### B MP, HS TROP, CBC, PT, PTT, BNP #### [address] RBC (Bld) [#/Vol] 4.54 10*6/uL Normal 3.90-5.60 [facility] Comment on above: Performed By: #### B MP, HS TROP, CBC, PT, PTT, BNP #### [address] WBC (Bld) [#/Vol] 11.0 10*3/uL Normal 4.5-11.0 [facility] Comment on above: Performed By: #### B MP, HS TROP, CBC, PT, PTT, BNP #### [address] Creatine Kinaseon 12-08-2020 CK [Catalytic activity/Vol] 78 U/L Normal 22-269 [facility] Comment on above: Performed By: #### B MP, HS TROP, CBC, PT, PTT, BNP #### [address] CK [Catalytic activity/Vol] 67 U/L Normal 22-269 [facility] Comment on above: Performed By: #### B MP, HS TROP, CBC, PT, PTT, BNP #### [facility] [address] [place] [address] [place] CK [Catalytic activity/Vol] 58 U/L Normal 22-269 [facility] Comment on above: Performed By: #### B MP, HS TROP, CBC, PT, PTT, BNP #### [address] Creatinine Kinase MBon 12-08 CK.MB [Mass/Vol] 6.3 ng/mL Normal 0.6-6.3 [facility] Comment on above: Performed By: #### B MP, HS TROP, CBC, PT, PTT, BNP #### [address] CKMB Relative Index 8.0 % High 0.00-2.50 [facility] Comment on above: Performed By: #### B MP, HS TROP, CBC, PT, PTT, BNP #### [address] CK.MB [Mass/Vol] 4.2 ng/mL Normal 0.6-6.3 [facility] Comment on above: Performed By: #### B MP, HS TROP, CBC, PT, PTT, BNP #### [place] [address] [place] CKMB Relative Index 6.2 % High 0.00-2.50 [facility] Comment on above: Performed By: #### B MP, HS TROP, CBC, PT, PTT, BNP #### [address] CK.MB [Mass/Vol] 3.7 ng/mL Normal 0.6-6.3 [facility] Comment on above: Performed By: #### B MP, HS TROP, CBC, PT, PTT, BNP #### [facility] [address] CKMB Relative Index 6.3 % High 0.00-2.50 [facility] Comment on above: Performed By: #### B MP, HS TROP, CBC, PT, PTT, BNP #### [facility] [address] [place] [address] [facility] ECG 12 lead ECGon 12-08-2020 ECG 12 lead ECG [facility] Main [place] [address] [place] [address] Electrocardiograph Report Signed Patient: Vishal Duke MR#: [id number] : 1960 Acct:[id number] Age/Sex: 59 / M ADM Date: 12/08/20 Loc: Room: [address] [place] [address] Type: ADM INOo Attending Dr: Daniel Prabhakar [...] Lateral leads Confirmed by IRWIN LUTZ DO ([id number]) on 12/09/2020 6:02:40 AM Referred By: Electronically Signed By:IRWIN LUTZ DO Transcribed By: MUS Dictated By: Irwin Lutz DO 12/08/20 0950 Signed By: 12/09/20 0602 Normal [facility] Partial Thromboplastin Timeo n 12-08-2020 aPTT Coag (Bld) [Time] 131.9 s Off scale high 25.1-36.5 [facility] Comment on above: Result Comment: Resu lts called at 1947 on 12/08/20 PERFORMED BY: [place] [id number] PATHOLOGIST MONOMER RECOVERY OPERATOR SHYANN OLIVIER M.D. Performed By: #### B MP, HS TROP, CBC, PT, PTT, BNP #### [place] [id number] [facility] aPTT Coag (Bld) [Time] 36.2 s Normal 25.1-36.5 [facility] Comment on above: Result Comment: PERF ORMED BY: [place] [id number] PATHOLOGIST MONOMER RECOVERY OPERATOR SHYANN OLIVIER M.D. Performed By: #### B MP, HS TROP, CBC, PT, PTT, BNP #### [place] [id number] [facility] Prothrombin Time INRon 12-08 INR Coag (PPP) [Relative time] 1.5 {INR} Normal [facility] Comment on above: Result Comment: INR Therapeutic [...] PTT, BNP #### [facility] [address] [place], [place] [id number] [place] PT Coag (PPP) [Time] 16.1 s High 9.0-12.9 [facility] Comment on above: Performed By: #### B MP, HS TROP, CBC, PT, PTT, BNP #### [facility] [address] [place], [place] [id number] [place] INR Coag (PPP) [Relative time] 1.3 {INR} Normal [facility] Comment on above: Result Comment: INR Therapeutic [...] TROP, CBC, PT, PTT, BNP #### [facility] [address] PT Coag (PPP) [Time] 14.0 s High 9.0-12.9 [facility] Comment on above: Performed By: #### B MP, HS TROP, CBC, PT, PTT, BNP #### [facility] [address] Tessa Ag Negativeon 12-09-19 Tessa Ag Negative Negative Normal Negative [facility] Comment on above: Result Comment: This is a duplicate Tessa SARS Antigen (GISSEL) result to be used for statistical tracking purpose only. PERFORMED BY: [place] [id number] PATHOLOGIST MONOMER RECOVERY OPERATOR SHYANN OLIVIER M.D. Performed By: #### S OFIANEG, COVID-19 [place], COVID 19 [facility] #### [facility] [address] [place] [address] [place] Troponin I High Sensitivityo n 12-08-2020 Troponin I High Sensitivity 474 pg/mL Off scale high 0-20 [facility] Comment on above: Result Comment: PERF ORMED BY: [place] [id number] PATHOLOGIST MONOMER RECOVERY OPERATOR SHYANN OLIVIER M.D. Performed By: #### B MP, HS TROP, CBC, PT, PTT, BNP #### [facility] [address] Troponin I High Sensitivity 317 pg/mL Off scale high 0-20 [facility] Comment on above: Result Comment: PERF ORMED BY: [place] [id number] PATHOLOGIST MONOMER RECOVERY OPERATOR SHYANN OLIVIER M.D. Performed By: #### B MP, HS TROP, CBC, PT, PTT, BNP #### [place] [id number] [facility] Troponin I High Sensitivity 183 pg/mL Off scale high 0-20 [facility] Comment on above: Result Comment: Crit ical value result called at 1719 on 12/08/20 PERFORMED BY: [place] [id number] PATHOLOGIST [employer] RECOVERY OPERATOR SHYANN OLIVIER M.D. Performed By: #### B MP, HS TROP, CBC, PT, PTT, BNP #### [place] [id number] [facility] Troponin I High Sensitivity 49 pg/mL High 0-20 [facility] Comment on above: Result Comment: PERF ORMED BY: [place] [id number] PATHOLOGIST [employer] RECOVERY OPERATOR SHYANN OLIVIER M.D. Performed By: #### B MP, HS TROP, CBC, PT, PTT, BNP #### [place] [id number] [facility] XR chest 1V portableon 12-08 XR chest 1V portable [facility] Main [place] [address] [place] [address] XRay Report Signed Patient: Vishal Duke MR#: [id number] : 1960 Acct:[id number] Age/Sex: 59 / M ADM Date: 12/08/20 Loc: ER Room: Type: [facility] ER Attending Dr: Ordering Provider: [...] Biju Ag M.D.12/08/2020 11:02 AM Dictation Location: [place] [address] Transcribed By: [facility] 12/08/20 1102 Dictated By: Biju Ag MD 12/08/20 1059 Signed By: 12/08/20 1102 [facility] TACROLIMUSon 12-04-2020 Tacrolimus (Bld) [Mass/Vol] 8.0 ng/mL Normal 5.0-20.0 [facility] Comment on above: Order Comment: Yes: Add to Previous draw if able Result Comment: The [employer] Tacrolimus assay is a delayed one-step immunoassay for the quantitative determination of tacrolimus in human whole blood using the chemiluminescent microparticle immunoassay (CMIA) technology with flexible assay protocols, referred to as Chemiflex. Performed By: #### 2 5508, 10603, 91658, 17311, 55230 #### [facility] [address] [facility] [place] [address], [facility] TROPONIN-Ion 12-04-2020 Troponin I.cardiac [Mass/Vol] 0.03 ng/mL Normal 0.00-0.04 [facility] Comment on above: Order Comment: No: D o not add to previous draw Pt in bath room askme to come back Result Comment: REFE RENCE RANGES: 0.00 - 0.04 ng/ml NORMAL 0.05 - 0.50 ng/ml INDETERMINATE > 0.50 ng/ml CONSISTENT WITH AN M.I. Performed By: #### 3 5200 #### [facility] [address] [place] [address], [facility] Order Comment: No: D o not add to previous draw Performed By: #### 2 5508, 00939, 99050, 97184, 65569 #### [facility] [address] [place] [address], [place] Troponin I.cardiac [Mass/Vol] 0.03 ng/mL Normal 0.00-0.04 [facility] Comment on above: Result Comment: REFE RENCE RANGES: 0.00 - 0.04 ng/ml NORMAL 0.05 - 0.50 ng/ml INDETERMINATE > 0.50 ng/ml CONSISTENT WITH AN M.I. Performed By: #### 2 5508, 65766, 61239, 22279, 62996 #### [facility] [address] [place] [address], [place] ktx basic metabolic panelon 12-04-2020 Calcium [Mass/Vol] 8.9 mg/dL Normal 8.6-10.3 [facility] Comment on above: Performed By: #### 2 5508, 62867, 66128, 12789, 59428 #### [facility] [address] [place] [address], [place] Chloride [Moles/Vol] 106 mmol/L Normal 98-107 [facility] Comment on above: Performed By: #### 2 5508, 87596, 48885, 35290, 05264 #### [facility] [address] [place] [address], [place] CO2 [Moles/Vol] 19 mmol/L Low 21-31 [facility] Comment on above: Performed By: #### 2 5508, 99006, 12077, 17980, 54978 #### [facility] [address] [place] [address], [place] Creatinine [Mass/Vol] 0.82 mg/dL Normal 0.70-1.30 [facility] Comment on above: Performed By: #### 2 5508, 22375, 91877, 27530, 79975 #### [facility] [address] [place] [address], [place] GFR/1.73 sq M.predicted among blacks MDRD (S/P/Bld) [Vol rate/Area] mL/min/{1.73_m2} Normal >60 [facility] Comment on above: Performed By: #### 2 5508, 87416, 99958, 97445, 52637 #### [facility] [address] [place] [address], [place] GFR/1.73 sq M.predicted among non-blacks MDRD (S/P/Bld) [Vol rate/Area] mL/min/{1.73_m2} Normal >60 [facility] Comment on above: Performed By: #### 2 5508, 00045, 20773, 31303, 96922 #### [facility] [address] [place] [address], [place] Glucose [Mass/Vol] 127 mg/dL High 70-100 [facility] Comment on above: Performed By: #### 2 5508, 92019, 24811, 83141, 24339 #### [facility] [address] [place] [address], [place] Potassium [Moles/Vol] 3.9 mmol/L Normal 3.5-5.1 [facility] Comment on above: Performed By: #### 2 5508, 30416, 23024, 31508, 43589 #### [facility] [address] [place] [address], [place] Sodium [Moles/Vol] 136 mmol/L Normal 136-145 [facility] Comment on above: Performed By: #### 2 5508, 82293, 85412, 99659, 31594 #### [facility] [address] [place] [address], [place] Urea nitrogen [Mass/Vol] 10 mg/dL Normal 7-25 [facility] Comment on above: Performed By: #### 2 5508, 85428, 35308, 98754, 12933 #### [facility] [address] [place] [address], [place] ktx cbc complete blood count on 12-04-2020 Erythrocyte distribution width (RBC) [Ratio] 14.6 % Normal 11.5-15.0 [facility] Comment on above: Performed By: #### 6 1405 #### [facility] [address] [place] [address], [facility] Hematocrit (Bld) [Volume fraction] 38.7 % Low 39.0-50.0 [facility] Comment on above: Performed By: #### 6 1405 #### [facility] [address] [place] [address], [facility] Hemoglobin (Bld) [Mass/Vol] 12.8 g/dL Low 13.0-17.0 [facility] Comment on above: Performed By: #### 6 1405 #### [facility] [address] [facility] [place] [place] [address], [facility] MCH (RBC) [Entitic mass] 31.3 pg Normal 27.0-33.0 [facility] Comment on above: Performed By: #### 6 1405 #### [facility] [address] [place] [place] [address], [facility] MCHC (RBC) [Mass/Vol] 33.1 g/dL Normal 32.0-35.0 [facility] Comment on above: Performed By: #### 6 1405 #### [facility] [address] [place] [address], [facility] MCV (RBC) [Entitic vol] 94.6 fL Normal 82.0-98.0 [facility] Comment on above: Performed By: #### 6 1405 #### [facility] [address] [place] [address], [facility] Nucleated RBC/100 WBC (Bld) [Ratio] 0 % Normal 0-0 [facility] Comment on above: Performed By: #### 6 1405 #### [facility] [address] [place] [address], [facility] PLAT CNT 224 10*3/uL Normal 150-400 [facility] Comment on above: Performed By: #### 6 1405 #### [facility] [address] [facility] [address], [facility] RBC (Bld) [#/Vol] 4.09 10*6/uL Low 4.20-5.70 [facility] Comment on above: Performed By: #### 6 1405 #### [facility] [address] [facility] [address], [facility] WBC (Bld) [#/Vol] 12.30 10*3/uL High 4.00-10.60 [facility] Comment on above: Performed By: #### 6 1405 #### [facility] [address] [facility]. [address] ktx magnesium bloodon 2020 Magnesium [Mass/Vol] 1.6 mg/dL Low 1.9-2.7 [facility] Comment on above: Performed By: #### 2 5508, 31964, 30962, 17205, 67572 #### [facility] [address] [facility]. [address] ktx phosphoruson 12-04-2020 Phosphate [Mass/Vol] 2.4 mg/dL Low 2.5-5.0 [facility] Comment on above: Performed By: #### 2 5508, 52823, 28717, 16398, 05798 #### [facility] [address] TACROLIMUSon 12-03-2020 Tacrolimus (Bld) [Mass/Vol] 9.1 ng/mL Normal 5.0-20.0 [facility] Comment on above: Order Comment: Yes: Add to Previous draw if able Result Comment: The [employer] Tacrolimus assay is a delayed one-step immunoassay for the quantitative determination of tacrolimus in human whole blood using the chemiluminescent microparticle immunoassay (CMIA) technology with flexible assay protocols, referred to as Chemiflex. Performed By: #### 2 5508, 37703, 63285, 83065, 30248 #### [facility] [address] [place] [address], [place] ktx basic metabolic panelon 12-03-2020 Calcium [Mass/Vol] 9.5 mg/dL Normal 8.6-10.3 [facility] Comment on above: Performed By: #### 2 5508, 03179, 37191, 08247, 79990 #### [facility] [address] [place] [address], [place] Chloride [Moles/Vol] 102 mmol/L Normal 98-107 [facility] Comment on above: Performed By: #### 2 5508, 41208, 72558, 45737, 96311 #### [facility] [address] [place] [address], [place] CO2 [Moles/Vol] 22 mmol/L Normal 21-31 [facility] Comment on above: Performed By: #### 2 5508, 82567, 09557, 16436, 47699 #### [facility] [address] [place] [address], [place] Creatinine [Mass/Vol] 0.88 mg/dL Normal 0.70-1.30 [facility] Comment on above: Performed By: #### 2 5508, 95690, 28834, 25325, 34573 #### [facility] [address] [place] [address], [place] GFR/1.73 sq M.predicted among blacks MDRD (S/P/Bld) [Vol rate/Area] mL/min/{1.73_m2} Normal >60 [facility] Comment on above: Performed By: #### 2 5508, 07215, 23072, 38075, 08971 #### [facility] [address] [place] [address], [place] GFR/1.73 sq M.predicted among non-blacks MDRD (S/P/Bld) [Vol rate/Area] mL/min/{1.73_m2} Normal >60 [facility] Comment on above: Performed By: #### 2 5508, 58984, 90308, 48454, 02667 #### [facility] [address] [place] [address], [place] Glucose [Mass/Vol] 120 mg/dL High 70-100 [facility] Comment on above: Performed By: #### 2 5508, 84370, 66184, 49899, 14167 #### [facility] [address] [place] [address], [place] Potassium [Moles/Vol] 3.8 mmol/L Normal 3.5-5.1 [facility] Comment on above: Performed By: #### 2 5508, 67136, 33223, 63140, 09787 #### [facility] [address] [place] [address], [place] Sodium [Moles/Vol] 134 mmol/L Low 136-145 [facility] Comment on above: Performed By: #### 2 5508, 51383, 82103, 82378, 70200 #### [facility] [address] [place] [address], [place] Urea nitrogen [Mass/Vol] 9 mg/dL Normal 7-25 [facility] Comment on above: Performed By: #### 2 5508, 85826, 09966, 55891, 11455 #### [facility] [address] [place] [address], [place] ktx cbc complete blood count on 12-03-2020 Erythrocyte distribution width (RBC) [Ratio] 14.6 % Normal 11.5-15.0 [facility] Comment on above: Performed By: #### 6 1405 #### [facility] [address] [place] [address], [place] Hematocrit (Bld) [Volume fraction] 40.4 % Normal 39.0-50.0 [facility] Comment on above: Performed By: #### 6 1405 #### [facility] [address] [facility] [place] [address], [facility] Hemoglobin (Bld) [Mass/Vol] 13.6 g/dL Normal 13.0-17.0 [facility] Comment on above: Performed By: #### 6 1405 #### [facility] [address] [facility] [place] [address], [facility] MCH (RBC) [Entitic mass] 31.1 pg Normal 27.0-33.0 [facility] Comment on above: Performed By: #### 6 1405 #### [facility] [address] [facility]. [address] MCHC (RBC) [Mass/Vol] 33.7 g/dL Normal 32.0-35.0 [facility] Comment on above: Performed By: #### 6 1405 #### [facility] [address] [facility] [place] [place] [address], [facility] MCV (RBC) [Entitic vol] 92.4 fL Normal 82.0-98.0 [facility] Comment on above: Performed By: #### 6 1405 #### [facility] [address] [facility] [facility] Nucleated RBC/100 WBC (Bld) [Ratio] 0 % Normal 0-0 [facility] Comment on above: Performed By: #### 6 1405 #### [facility] [address] [facility] [place] [place] [address], [facility] PLAT CNT 240 10*3/uL Normal 150-400 [facility] Comment on above: Performed By: #### 6 1405 #### [facility] [address] [place] [address], [facility] RBC (Bld) [#/Vol] 4.37 10*6/uL Normal 4.20-5.70 [facility] Comment on above: Performed By: #### 6 1405 #### [facility] [address] [place] [address], [facility] WBC (Bld) [#/Vol] 12.42 10*3/uL High 4.00-10.60 [facility] Comment on above: Performed By: #### 6 1405 #### [facility] [address] [place] [address], [place] ktx magnesium bloodon 2020 Magnesium [Mass/Vol] 2.1 mg/dL Normal 1.9-2.7 [facility] Comment on above: Performed By: #### 2 5508, 82536, 60530, 97532, 94055 #### [facility] [address] [place] [address], [place] ktx phosphoruson 12-03-2020 Phosphate [Mass/Vol] 3.3 mg/dL Normal 2.5-5.0 [facility] Comment on above: Performed By: #### 2 5508, 11917, 01098, 20085, 68470 #### [facility] [address] [place] [address], [place] BASIC METABOLIC PANELon 11-15 Calcium [Mass/Vol] 10.1 mg/dL Normal 8.6-10.3 [facility] Comment on above: Order Comment: No: D o not add to previous draw Performed By: #### 2 5508, 41368, 95732, 43515, 04802 #### [facility] [address] [place] [address], [place] Chloride [Moles/Vol] 97 mmol/L Low 98-107 [facility] Comment on above: Order Comment: No: D o not add to previous draw Performed By: #### 2 5508, 50441, 92781, 84658, 04746 #### [facility] [address] [place] [address], [place] CO2 [Moles/Vol] 27 mmol/L Normal 21-31 [facility] Comment on above: Order Comment: No: D o not add to previous draw Performed By: #### 2 5508, 60124, 51788, 84526, 05643 #### [facility] [address] [place] [address], [place] Creatinine [Mass/Vol] 1.12 mg/dL Normal 0.70-1.30 [facility] Comment on above: Order Comment: No: D o not add to previous draw Performed By: #### 2 5508, 33513, 44837, 20928, 46191 #### [facility] [address] [place] [address], [place] GFR/1.73 sq M.predicted among blacks MDRD (S/P/Bld) [Vol rate/Area] mL/min/{1.73_m2} Normal >60 [facility] Comment on above: Order Comment: No: D o not add to previous draw Performed By: #### 2 5508, 85512, 67389, 07853, 86702 #### [facility] [address] [place] [address], [place] GFR/1.73 sq M.predicted among non-blacks MDRD (S/P/Bld) [Vol rate/Area] mL/min/{1.73_m2} Normal >60 [facility] Comment on above: Order Comment: No: D o not add to previous draw Performed By: #### 2 5508, 59081, 82981, 22285, 81319 #### [facility] [address] [place] [address], [place] Glucose [Mass/Vol] 124 mg/dL High 70-100 [facility] Comment on above: Order Comment: No: D o not add to previous draw Performed By: #### 2 5508, 57047, 74902, 60213, 36642 #### [facility] [address] [place] [address], [place] Potassium [Moles/Vol] 4.4 mmol/L Normal 3.5-5.1 [facility] Comment on above: Order Comment: No: D o not add to previous draw Performed By: #### 2 5508, 46988, 23709, 19524, 23620 #### [facility] [address] [place] [address], [facility] Sodium [Moles/Vol] 133 mmol/L Low 136-145 [facility] Comment on above: Order Comment: No: D o not add to previous draw Performed By: #### 2 5508, 63463, 25468, 81344, 34436 #### [facility] [address] [place] [id number], [facility] Urea nitrogen [Mass/Vol] 17 mg/dL Normal 7-25 [facility] Comment on above: Order Comment: No: D o not add to previous draw Performed By: #### 2 5508, 32634, 26008, 49525, 07213 #### [facility] [address] [place] [address], [facility] CBC COMPLETE BLOOD COUNTon 0 - Erythrocyte distribution width (RBC) [Ratio] 14.7 % Normal 11.5-15.0 [facility] Comment on above: Order Comment: No: D o not add to previous draw Performed By: #### 6 1402 #### [facility] [address] [place] [address], [facility] Hematocrit (Bld) [Volume fraction] 43.7 % Normal 39.0-50.0 [facility] Comment on above: Order Comment: No: D o not add to previous draw Performed By: #### 6 1405 #### [facility] [address] [place] [id number], [facility] Hemoglobin (Bld) [Mass/Vol] 14.1 g/dL Normal 13.0-17.0 [facility] Comment on above: Order Comment: No: D o not add to previous draw Performed By: #### 6 1405 #### [facility] [address] [place] [id number], [facility] MCH (RBC) [Entitic mass] 30.8 pg Normal 27.0-33.0 [facility] Comment on above: Order Comment: No: D o not add to previous draw Performed By: #### 6 1405 #### [facility] [address] [place] [address], [facility] MCHC (RBC) [Mass/Vol] 32.3 g/dL Normal 32.0-35.0 [facility] Comment on above: Order Comment: No: D o not add to previous draw Performed By: #### 6 1405 #### [facility] [address] [place] [address], [facility] MCV (RBC) [Entitic vol] 95.4 fL Normal 82.0-98.0 [facility] Comment on above: Order Comment: No: D o not add to previous draw Performed By: #### 6 1405 #### [facility] [address] [place] [id number], [facility] Nucleated RBC/100 WBC (Bld) [Ratio] 0 % Normal 0-0 [facility] Comment on above: Order Comment: No: D o not add to previous draw Performed By: #### 6 1405 #### [facility] [address] [facility] [address] [place] [id number], [facility] PLAT CNT 257 10*3/uL Normal 150-400 [facility] Comment on above: Order Comment: No: D o not add to previous draw Performed By: #### 6 1405 #### [facility] [address] [facility] [place] [id number], [facility] RBC (Bld) [#/Vol] 4.58 10*6/uL Normal 4.20-5.70 [facility] Comment on above: Order Comment: No: D o not add to previous draw Performed By: #### 6 1405 #### [facility] [address] WBC (Bld) [#/Vol] 13.96 10*3/uL High 4.00-10.60 [facility] Comment on above: Order Comment: No: D o not add to previous draw Performed By: #### 6 1405 #### [facility] [address] [facility] [address] MAGNESIUM BLOODon 12-02-2020 Magnesium [Mass/Vol] 1.5 mg/dL Low 1.9-2.7 [facility] Comment on above: Order Comment: No: D o not add to previous draw Performed By: #### 2 5508, 68521, 94519, 98114, 18370 #### [facility] [address] [facility]. [address] PHOSPHORUS BLOODon 1 Phosphate [Mass/Vol] 3.8 mg/dL Normal 2.5-5.0 [facility] Comment on above: Order Comment: No: D o not add to previous draw Performed By: #### 2 5508, 08592, 49658, 71894, 73093 #### [facility] [address] [facility]. [address] PROTHROMBIN TIMEon 1 INR Coag (PPP) [Relative time] 1.12 {INR} Normal 0.91-1.16 [facility] Comment on above: Order Comment: No: D o not add to previous draw Result Comment: ACCC P RECOMMENDED INR FOR WARFARIN THERAPY ----- ------- CONDITION INR PROPHYLAXIS OF VENOUS THROMBOSIS 2-3 (HIGH-RISK SURGERY) TREATMENT OF VENOUS THROMBOSIS 2-3 TREATMENT OF PULMONARY EMBOLISM 2-3 PREVENTION OF SYSTEMIC EMBOLISM: 2-3 ACUTE MYOCARDIAL INFARCTION TISSUE HEART VALVES VALVULAR HEART DISEASE ATRIAL FIBRILLATION RECURRENT SYSTEMIC EMBOLISM MECHANICAL HEART VALVE 2.5-3.5 FROM: ORAL ANTICOAGULANTS. MECHANISM OF ACTION, CLINICAL EFFECTIVENESS, AND OPTIMAL THERAPEUTIC RANGE. CHEST 1995;108:231S-246S. Performed By: #### 5 6101 ####[facility] PT Coag (PPP) [Time] 14.4 s Normal 12.3-14.8 [facility] Comment on above: Order Comment: No: D o not add to previous draw Result Comment: ALL RESULTS MUST BE INTERPRETED WITH RESPECT TO BLOOD DRAWING ARTIFACT OR DILUTION ERROR OF ANTICOAGULANT AT THE TIME OF SAMPLING. Performed By: #### 5 6101 ####[facility] CBC W/DIFFon 12-01-2020 ABS IMM GRANS 0.1 10*3/uL Normal 0.0-0.2 [facility] Comment on above: Performed By: #### 6 1405 #### [facility] [address] ABS NEUTROPHILS 12.0 10*3/uL High 1.6-7.6 [facility] Comment on above: Performed By: #### 6 1405 #### [facility] [address] Basophils (Bld) [#/Vol] 0.1 10*3/uL Normal 0.0-0.2 [facility] Comment on above: Performed By: #### 6 1405 #### [facility] [address] Basophils/100 WBC (Bld) 0.6 % Normal 0.0-1.0 [facility] Comment on above: Performed By: #### 6 1405 #### [facility] [address] Eosinophils (Bld) [#/Vol] 0.1 10*3/uL Normal 0.0-0.5 [facility] Comment on above: Performed By: #### 6 1405 #### [facility] [address] Eosinophils/100 WBC (Bld) 0.7 % Normal 0.0-6.0 [facility] Comment on above: Performed By: #### 6 1405 #### [facility] [address] Erythrocyte distribution width (RBC) [Ratio] 14.7 % Normal 11.5-15.0 [facility] Comment on above: Performed By: #### 6 1405 #### [facility] [address] Hematocrit (Bld) [Volume fraction] 47.3 % Normal 39.0-50.0 [facility] Comment on above: Performed By: #### 6 1405 #### [facility] [address] Hemoglobin (Bld) [Mass/Vol] 15.5 g/dL Normal 13.0-17.0 [facility] Comment on above: Performed By: #### 6 1405 #### [facility] [address] IMMATURE GRANS 0.7 % Normal 0.0-1.0 [facility] Comment on above: Performed By: #### 6 1405 #### [facility] [address] [place] [address], [facility] Lymphocytes (Bld) [#/Vol] 0.6 10*3/uL Low 1.2-4.0 [facility] Comment on above: Performed By: #### 6 1405 #### [facility] [address] [place] [address], [facility] Lymphocytes/100 WBC (Bld) 4.3 % Low 20.0-45.0 [facility] Comment on above: Performed By: #### 6 1405 #### [facility] [address] [facility] [place] [address], [facility] MCH (RBC) [Entitic mass] 31.0 pg Normal 27.0-33.0 [facility] Comment on above: Performed By: #### 6 1405 #### [facility] [address] [facility] [place] [address], [facility] MCHC (RBC) [Mass/Vol] 32.8 g/dL Normal 32.0-35.0 [facility] Comment on above: Performed By: #### 6 1405 #### [facility] [address] [place] [address], [facility] MCV (RBC) [Entitic vol] 94.6 fL Normal 82.0-98.0 [facility] Comment on above: Performed By: #### 6 1405 #### [facility] [address] [place] [address], [facility] Monocytes (Bld) [#/Vol] 1.0 10*3/uL Normal 0.1-1.0 [facility] Comment on above: Performed By: #### 6 1405 #### [facility] [address] [facility] [address], [facility] MONOS 7.3 % Normal 5.0-12.0 [facility] Comment on above: Performed By: #### 6 1405 #### [facility] [address] [facility] [address], [facility] Neutrophils/100 WBC (Bld) 86.4 % High 40.0-72.0 [facility] Comment on above: Performed By: #### 6 1405 #### [facility] [address] [facility] [place] [address], [facility] Nucleated RBC/100 WBC (Bld) [Ratio] 0 % Normal 0-0 [facility] Comment on above: Performed By: #### 6 1405 #### [facility] [address] [facility] [place] [place] [address], [facility] PLAT CNT 289 10*3/uL Normal 150-400 [facility] Comment on above: Performed By: #### 6 1405 #### [facility] [address] [facility]. [address] RBC (Bld) [#/Vol] 5.00 10*6/uL Normal 4.20-5.70 [facility] Comment on above: Performed By: #### 6 1405 #### [facility] [address] [facility]. [address] WBC (Bld) [#/Vol] 13.82 10*3/uL High 4.00-10.60 [facility] Comment on above: Performed By: #### 6 1405 #### [facility] [address] [facility]. [address] COMP METABOLIC PANELon 12-01 Albumin [Mass/Vol] 4.7 g/dL Normal 3.5-5.7 [facility] Comment on above: Performed By: #### 2 5508, 02481, 69674, 99845, 07946 #### [facility] [address] [facility]. [address] ALKALINE PHOSPH 73 IU/L Normal 34-104 [facility] Comment on above: Performed By: #### 2 5508, 13675, 51862, 87295, 17520 #### [facility] [address] [facility]. [address] ALT [Catalytic activity/Vol] 27 U/L Normal 7-52 [facility] Comment on above: Performed By: #### 2 5508, 08720, 88911, 03309, 79284 #### [facility] [address] [place] [address], [place] AST [Catalytic activity/Vol] 21 U/L Normal 13-39 [facility] Comment on above: Performed By: #### 2 5508, 12473, 22183, 39549, 72617 #### [facility] [address] [place] [address], [place] Bilirubin [Mass/Vol] 0.6 mg/dL Normal 0.3-1.0 [facility] Comment on above: Performed By: #### 2 5508, 27090, 74980, 92054, 03782 #### [facility] [address] [place] [address], [place] Calcium [Mass/Vol] 9.9 mg/dL Normal 8.6-10.3 [facility] Comment on above: Performed By: #### 2 5508, 50296, 77946, 60611, 94421 #### [facility] [address] [place] [address], [place] Chloride [Moles/Vol] 104 mmol/L Normal 98-107 [facility] Comment on above: Performed By: #### 2 5508, 23876, 15303, 77645, 00474 #### [facility] [address] [place] [address], [place] CO2 [Moles/Vol] 25 mmol/L Normal 21-31 [facility] Comment on above: Performed By: #### 2 5508, 53923, 62752, 10633, 09237 #### [facility] [address] [place] [address], [place] Creatinine [Mass/Vol] 1.40 mg/dL High 0.70-1.30 [facility] Comment on above: Performed By: #### 2 5508, 79905, 54830, 86855, 97988 #### [facility] [address] [place] [address], [place] eGFR- non- 52 ml/min/1.73sq m Abnormal >60 [facility] Comment on above: Performed By: #### 2 5508, 46926, 70904, 76922, 25093 #### [facility] [address] [place] [address], [place] GFR/1.73 sq M.predicted among blacks MDRD (S/P/Bld) [Vol rate/Area] mL/min/{1.73_m2} Normal >60 [facility] Comment on above: Performed By: #### 2 5508, 81185, 33943, 98320, 88917 #### [facility] [address] [place] [address], [place] Glucose [Mass/Vol] 133 mg/dL High 70-100 [facility] Comment on above: Performed By: #### 2 5508, 91362, 38456, 39060, 91196 #### [facility] [address] [place] [address], [place] Potassium [Moles/Vol] 4.8 mmol/L Normal 3.5-5.1 [facility] Comment on above: Performed By: #### 2 5508, 11149, 20254, 34666, 95396 #### [facility] [address] [place] [address], [place] Protein [Mass/Vol] 7.1 g/dL Normal 6.0-8.3 [facility] Comment on above: Performed By: #### 2 5508, 88892, 18504, 39733, 34904 #### [facility] [address] [place] [address], [place] Sodium [Moles/Vol] 137 mmol/L Normal 136-145 [facility] Comment on above: Performed By: #### 2 5508, 17240, 63478, 45399, 74483 #### [facility] [address] [place] [address], [place] Urea nitrogen [Mass/Vol] 19 mg/dL Normal 7-25 [facility] Comment on above: Performed By: #### 2 5508, 91707, 66782, 74536, 76766 #### [place] [address], [facility] CT ABDOMEN AND PELVIS WO CON TRASTon 12-01-2020 CT ABDOMEN AND PELVIS WO CONTRAST [facility] Department of Radiology [address] [place] [id number] Patient Name: VISHAL DUKE : 1960 Sex: M Age: Race: White Pt. Location: [facility] Patient Status: E Ordered Date: 12/01/2020 9:30:00 AM Completed Date: 12/01/2020 11:06 AM Requesting Provider: DERICK VIDAL Attending Provider: DERICK VIDAL Report Copy To: Signs & Symptoms: Abdominal Pain(specify) History: See Comments Comments: Kidney Abnormalites Exam: CT ABDOMEN AND PELVIS WO CONTRAST CT ABDOMEN AND PELVIS WITHOUT IV CONTRAST [...] Otherwise no change in appearance of the [place] kidneys. No evidence of cyst rupture. Right lower quadrant transplant kidney, no stone or collecting system dilatation. No contour deforming renal lesion of the transplant kidney. GI TRACT: No dilatation or wall thickening. Appendix is normal. PELVIC ORGANS/BLADDER: Unremarkable. PERITONEUM/RETROPERITONEUM: No free air or fluid. LYMPH NODES: No enlarged lymph nodes. VESSELS: Atherosclerotic calcifications without abdominal aortic aneurysm. BONES AND SOFT TISSUES: No suspicious osseous lesion. Small fat-containing left inguinal hernia. Retained epicardial pacing wires along the ventral chest wall. ___ IMPRESSION: 1. Redemonstrated innumerable cysts involving both [...] achievable. Electronically signed: José Herman. Transcribed by: [email or web address], User Resident: Electronically Signed by: JOSÉ HERMAN @ 12/01/2020 11:45 AM Normal [facility] Comment on above: Order Comment: No: D o not add to previous draw CV'D BY IMM LAB AT 1240 LIPASE BLOODon 12-01-2020 LIPASE 40 Units/L Normal 11-82 [facility] Comment on above: Performed By: #### 2 5508, 45009, 48658, 20111, 98498 #### [facility] [address] [place] [address], [facility] URINALYSIS REFLEXon 12-02-19 21 Appearance (U) SL CLOUDY Abnormal CLEAR [facility] Comment on above: Order Comment: Yes: Add to Previous draw if able Performed By: #### 2 5508, 85112, 22221, 90870, 42229 #### [facility] [address] [place] [address], [place] Bilirubin Ql (U) Negative Normal NEGATIVE [facility] Comment on above: Order Comment: Yes: Add to Previous draw if able Performed By: #### 2 5508, 92840, 80743, 02817, 79172 #### [facility] [address] [place] [address], [facility] Color (U) TINO Abnormal YELLOW [facility] Comment on above: Order Comment: Yes: Add to Previous draw if able Performed By: #### 2 5508, 63535, 06681, 52343, 30746 #### [facility] [address] [place] [address], [facility] EPIS NONE SEEN Normal FEW,OCC,NON E SEEN [facility] Comment on above: Order Comment: Yes: Add to Previous draw if able Performed By: #### 2 5508, 48388, 38109, 30428, 32424 #### [facility] [address] [place] [address], [place] Glucose Ql (U) Negative Normal NEGATIVE [facility] Comment on above: Order Comment: Yes: Add to Previous draw if able Performed By: #### 2 5508, 85491, 22286, 95362, 58196 #### [facility] [address] [place] [address], [place] Hemoglobin Ql (U) Negative Normal NEGATIVE [facility] Comment on above: Order Comment: Yes: Add to Previous draw if able Performed By: #### 2 5508, 13677, 54458, 68954, 02648 #### [facility] [address] [place] [address], [facility] KETONE Negative Normal NEGATIVE [facility] Comment on above: Order Comment: Yes: Add to Previous draw if able Performed By: #### 2 5508, 84727, 69111, 46063, 04938 #### [facility] [address] [place] [id number], [facility] LEUK MARIA A Negative Normal NEGATIVE [facility] Comment on above: Order Comment: Yes: Add to Previous draw if able Performed By: #### 2 5508, 39631, 19260, 06350, 01745 #### [facility] [address] [place] [address], [facility] MUCUS THREADS MOD Abnormal NONE SEEN [facility] Comment on above: Order Comment: Yes: Add to Previous draw if able Performed By: #### 2 5508, 83870, 94680, 12365, 63789 #### [facility] [address] [facility] [address], [facility] Nitrite Ql (U) Negative Normal NEGATIVE [facility] Comment on above: Order Comment: Yes: Add to Previous draw if able Performed By: #### 2 5508, 57535, 24819, 14149, 98488 #### [facility] [address] [facility] [address], [facility] pH (U) 5.0 [pH] Normal 5.0-8.0 [facility] Comment on above: Order Comment: Yes: Add to Previous draw if able Performed By: #### 2 5508, 81851, 16226, 09869, 94047 #### [facility] [address] [place] [id number], [facility] Protein Ql (U) 30 mg/dL Abnormal NEGATIVE [facility] Comment on above: Order Comment: Yes: Add to Previous draw if able Performed By: #### 2 5508, 36067, 81891, 64148, 04788 #### [facility] [address] [place] [address], [facility] RBC 0-2 Abnormal NONE SEEN [facility] Comment on above: Order Comment: Yes: Add to Previous draw if able Performed By: #### 2 5508, 61690, 93951, 93428, 56527 #### [facility] [address] [place] [address], [facility] SPEC GRAV 1.026 High 1.015-1.020 [facility] Comment on above: Order Comment: Yes: Add to Previous draw if able Performed By: #### 2 5508, 06479, 35213, 57395, 41729 #### [facility] [address] [place] [address], [facility] WBC UA 0-2 Abnormal NONE SEEN [facility] Comment on above: Order Comment: Yes: Add to Previous draw if able Performed By: #### 2 5508, 99667, 72210, 16957, 43971 #### [facility] [address] Pulmonary Functionon 08-15-2 021 Pulmonary Function MR #: [id number] [facility] PT. Name: Vishal Duke Date: 11/27/2020 [...] by: Negro Syed MD 11/29/2020 01:28 P __ Negro Syed MD Pulmonary Clinic Care and Sleep Medicine Date Dict: 11/29/2020/01:09 P/Negro Syed MD Date Trans: 11/29/2020 01:09 P/ [id number] cc: Rosa M Gonzales M.D. [address] [place] [address] Normal [facility] ARTERIAL BLOOD GAS W/COOXon 11-27-2020 BASE EXCESS 3 mmol/L Normal -2-3 [facility] Comment on above: Performed By: #### 2 5508, 86372, 85859, 11062, 90248 #### [facility] [address] [place] [address], [place] COHB 1.5 % Normal 0.0-1.5 [facility] Comment on above: Performed By: #### 2 5508, 82638, 13141, 07482, 32613 #### [facility] [address] [place] [address], [place] [employer] ROOM AIR Normal [facility] Comment on above: Performed By: #### 2 5508, 27140, 31878, 63392, 47830 #### [facility] [address] [place] [address], [place] FIO2 0 % Normal [facility] Comment on above: Performed By: #### 2 5508, 15952, 58134, 90907, 16160 #### [facility] [address] [place] [address], [place] HCO3 (Bld) [Moles/Vol] 26 mmol/L Normal 21-28 [facility] Comment on above: Performed By: #### 2 5508, 26903, 75794, 40369, 37330 #### [facility] [address] [place] [address], [place] METHB 1.2 % Normal 0.0-1.5 [facility] Comment on above: Performed By: #### 2 5508, 06794, 60207, 10481, 08427 #### [facility] [address] [place] [address], [place] Oxygen (Bld) [Partial pressure] 93 mm[Hg] Normal 83-108 [facility] Comment on above: Performed By: #### 2 5508, 45878, 49524, 97682, 84346 #### [facility] [address] [place] [address], [place] Oxygen saturation in Blood 95.6 % Normal 94.0-97.0 [facility] Comment on above: Performed By: #### 2 5508, 14336, 85438, 45404, 43977 #### [facility] [address] [place] [address], [place] PCO2 35 mmHg Normal 35-45 [facility] Comment on above: Performed By: #### 2 5508, 86095, 73992, 81513, 85066 #### [facility] [address] [place] [address], [place] pH (Bld) 7.48 [pH] High 7.35-7.45 [facility] Comment on above: Performed By: #### 2 5508, 22837, 45743, 84695, 71729 #### [facility] [address] [place] [address], [place] THB 15.4 g/dL Normal 12.0-16.3 [facility] Comment on above: Performed By: #### 2 5508, 41134, 77701, 67520, 13789 #### [facility] [address] [place] [address], [facility] CREATININE BLOODon Creatinine [Mass/Vol] 1.10 mg/dL Normal 0.70-1.30 [facility] Comment on above: Order Comment: No: D o not add to previous draw Performed By: #### 2 5508, 68034, 48798, 83726, 55727 #### [facility] [address] [place] [address], [facility] GFR/1.73 sq M.predicted among blacks MDRD (S/P/Bld) [Vol rate/Area] mL/min/{1.73_m2} Normal >60 [facility] Comment on above: Order Comment: No: D o not add to previous draw Performed By: #### 2 5508, 59660, 70395, 32989, 94031 #### [facility] [address] [place] [address], [facility] GFR/1.73 sq M.predicted among non-blacks MDRD (S/P/Bld) [Vol rate/Area] mL/min/{1.73_m2} Normal >60 [facility] Comment on above: Order Comment: No: D o not add to previous draw Performed By: #### 2 5508, 88423, 64133, 35891, 16333 #### [facility] [address] [place] [address], [facility] Cardiovascular Lab Reporton 10-29-2020 Cardiovascular Lab Report [facility] Patient Name: [facility] Xavi Medeiros MR #: [id number] Department of Physician: Domo Mejia M.D. Division of Service Date: 10/29/2020 Cardiology Birthdate: 1960 Adult Cardiovascular Room #: [id number] [facility] [address] [place], [place] [address] Cardiovascular Laboratory Report FINAL IMPRESSIONS: 1. Severe [...] for minimum of 6 months preferably long term care pharmacist. 6. Will consider elective revascularization of the right coronary artery should the patient continue to experience significant exertional angina; this will be a high risk procedure given tortuosity, calcification and ectasia. 7. Follow up with Dr. Chester in the [place] office in the next 1 to 2 [...] artery, failed attempt at deployment of a 6-Tuvaluan MynxGrip closure device. METHODS: After risks, benefits, and alternatives were explained, written informed consent was obtained. The patient was prepped and draped in usual sterile fashion over both groins. Using 1% lidocaine solution, local infiltration anesthesia was achieved. Using a micropuncture kit access to the right common femoral artery was obtained. A 6-Tuvaluan x 11 cm sheath was inserted without difficulty. Baseline femoral angiography was performed. Bilateral selective coronary angiography was performed using JL4 and JR4 catheters. Angiography of internal mammary artery graft was performed using a 6-Tuvaluan IM catheter. Limited angiography of the left subclavian was performed after retracting the catheter into the artery. After reviewing the images, it was elected to proceed with an interventional procedure. A 6-Tuvaluan XB3.5 guide catheter was advanced over J-wire [...] pressure to achieve optimal hemostasis once a 6-Tuvaluan MynxGrip closure device failed to deploy. Overall, [...] mammar (more content not included)... Normal [facility] BASIC METABOLIC PANELon 05-0 Calcium [Mass/Vol] 8.1 mg/dL Low 8.6-10.3 [facility] Comment on above: Order Comment: Yes: Add to Previous draw if able Performed By: #### 2 5508, 49438, 02433, 26890, 92110 #### [facility] [address] [place] [address], [place] Chloride [Moles/Vol] 103 mmol/L Normal 98-107 [facility] Comment on above: Order Comment: Yes: Add to Previous draw if able Performed By: #### 2 5508, 80087, 23096, 09498, 35855 #### [facility] [address] [place] [address], [place] CO2 [Moles/Vol] 25 mmol/L Normal 21-31 [facility] Comment on above: Order Comment: Yes: Add to Previous draw if able Performed By: #### 2 5508, 68794, 21891, 58478, 67359 #### [facility] [address] [place] [address], [place] Creatinine [Mass/Vol] 0.88 mg/dL Normal 0.70-1.30 [facility] Comment on above: Order Comment: Yes: Add to Previous draw if able Performed By: #### 2 5508, 52651, 53947, 57419, 65018 #### [facility] [address] [place] [address], [place] GFR/1.73 sq M.predicted among blacks MDRD (S/P/Bld) [Vol rate/Area] mL/min/{1.73_m2} Normal >60 [facility] Comment on above: Order Comment: Yes: Add to Previous draw if able Performed By: #### 2 5508, 03139, 01362, 62932, 06374 #### [facility] [address] [place] [address], [place] GFR/1.73 sq M.predicted among non-blacks MDRD (S/P/Bld) [Vol rate/Area] mL/min/{1.73_m2} Normal >60 [facility] Comment on above: Order Comment: Yes: Add to Previous draw if able Performed By: #### 2 5508, 48168, 70924, 76230, 26517 #### [facility] [address] [place] [address], [place] Glucose [Mass/Vol] 119 mg/dL High 70-100 [facility] Comment on above: Order Comment: Yes: Add to Previous draw if able Performed By: #### 2 5508, 85654, 66162, 88758, 53034 #### [facility] [address] [place] [address], [place] Potassium [Moles/Vol] 3.6 mmol/L Normal 3.5-5.1 [facility] Comment on above: Order Comment: Yes: Add to Previous draw if able Performed By: #### 2 5508, 95821, 09199, 67403, 17409 #### [facility] [address] [place] [address], [place] Sodium [Moles/Vol] 133 mmol/L Low 136-145 [facility] Comment on above: Order Comment: Yes: Add to Previous draw if able Performed By: #### 2 5508, 39959, 16555, 22194, 46799 #### [facility] [address] [place] [address], [place] Urea nitrogen [Mass/Vol] 17 mg/dL Normal 7-25 [facility] Comment on above: Order Comment: Yes: Add to Previous draw if able Performed By: #### 2 5508, 79829, 53325, 64751, 48351 #### [facility] [address] [place] [address], [place] CBC COMPLETE BLOOD COUNTon 0 - Erythrocyte distribution width (RBC) [Ratio] 13.3 % Normal 11.5-15.0 [facility] Comment on above: Order Comment: No: D o not add to previous draw Performed By: #### 6 1405 #### [facility] [address] [place] [address], [place] Hematocrit (Bld) [Volume fraction] 47.6 % Normal 39.0-50.0 [facility] Comment on above: Order Comment: No: D o not add to previous draw Performed By: #### 6 1405 #### [facility] [address] [facility] [address], [facility] Hemoglobin (Bld) [Mass/Vol] 15.9 g/dL Normal 13.0-17.0 [facility] Comment on above: Order Comment: No: D o not add to previous draw Performed By: #### 6 1405 #### [facility] [address] [facility] [place] [address], [facility] MCH (RBC) [Entitic mass] 29.1 pg Normal 27.0-33.0 [facility] Comment on above: Order Comment: No: D o not add to previous draw Performed By: #### 6 1405 #### [facility] [address] [facility] [address], [facility] MCHC (RBC) [Mass/Vol] 33.4 g/dL Normal 32.0-35.0 [facility] Comment on above: Order Comment: No: D o not add to previous draw Performed By: #### 6 1405 #### [facility] [address] [facility] [address], [facility] MCV (RBC) [Entitic vol] 87.2 fL Normal 82.0-98.0 [facility] Comment on above: Order Comment: No: D o not add to previous draw Performed By: #### 6 1405 #### [facility] [address] [facility] [address], [facility] Nucleated RBC/100 WBC (Bld) [Ratio] 0 % Normal 0-0 [facility] Comment on above: Order Comment: No: D o not add to previous draw Performed By: #### 6 1405 #### [facility] [address] [facility] [address], [facility] PLAT CNT 306 10*3/uL Normal 150-400 [facility] Comment on above: Order Comment: No: D o not add to previous draw Performed By: #### 6 1405 #### [facility] [address] [facility] [address], [facility] RBC (Bld) [#/Vol] 5.46 10*6/uL Normal 4.20-5.70 [facility] Comment on above: Order Comment: No: D o not add to previous draw Performed By: #### 6 1405 #### [facility] [address] [place] [address], [facility] WBC (Bld) [#/Vol] 10.07 10*3/uL Normal 4.00-10.60 [facility] Comment on above: Order Comment: No: D o not add to previous draw Performed By: #### 6 1405 #### [place] [address], [facility] PORTABLE CHEST 1 VIEWon PORTABLE CHEST 1 VIEW [facility] Department of Radiology [address] [place] [id number] Patient Name: VISHAL DUKE : 1960 Sex: M Age: Race: White Pt. Location: [id number] Patient Status: I Ordered Date: 08/19/2020 6:00:00 AM Completed Date: 08/19/2020 09:01 AM Requesting Provider: MARY BANKS Attending Provider: JUAN FERREIRA Report Copy To: Signs & Symptoms: O2 Desaturation History: Comments: Aspiration Exam: PORTABLE CHEST 1 VIEW PORTABLE CHEST 1 VIEW 08/19/2020 9:01 AM [...] right. Electronically signed: Dariela Vincent. Transcribed by: [email or web address], User Resident: Electronically Signed by: DARIELA VINCENT @ 08/19/2020 10:20 AM Normal [facility] Comment on above: Order Comment: No: D o not add to previous draw CV'D BY IMM LAB AT 1240 TACROLIMUSon 08-19-2020 Tacrolimus (Bld) [Mass/Vol] 8.5 ng/mL Normal 5.0-20.0 [facility] Comment on above: Order Comment: No: D o not add to previous draw Result Comment: The [employer] Tacrolimus assay is a delayed one-step immunoassay for the quantitative determination of tacrolimus in human whole blood using the chemiluminescent microparticle immunoassay (CMIA) technology with flexible assay protocols, referred to as Chemiflex. Performed By: #### 2 5508, 20117, 81965, 81596, 24387 #### [facility] [address] [facility] [place] [address], [facility] BASIC METABOLIC PANELon Calcium [Mass/Vol] 8.8 mg/dL Normal 8.6-10.3 [facility] Comment on above: Order Comment: No: D o not add to previous draw Pt in bath room askme to come back Performed By: #### 3 5200 #### [facility] [address] [facility] [place] [address], [facility] Chloride [Moles/Vol] 100 mmol/L Normal 98-107 [facility] Comment on above: Order Comment: No: D o not add to previous draw Pt in bath room askme to come back Performed By: #### 3 5200 #### [facility] [address] [place] [address], [place] CO2 [Moles/Vol] 28 mmol/L Normal 21-31 [facility] Comment on above: Order Comment: No: D o not add to previous draw Pt in bath room askme to come back Performed By: #### 3 5200 #### [facility] [address] [place] [address], [place] Creatinine [Mass/Vol] 0.87 mg/dL Normal 0.70-1.30 [facility] Comment on above: Order Comment: No: D o not add to previous draw Pt in bath room askme to come back Performed By: #### 3 5200 #### [facility] [address] [place] [address], [place] GFR/1.73 sq M.predicted among blacks MDRD (S/P/Bld) [Vol rate/Area] mL/min/{1.73_m2} Normal >60 [facility] Comment on above: Order Comment: No: D o not add to previous draw Pt in bath room askme to come back Performed By: #### 3 5200 #### [facility] [address] [place] [address], [place] GFR/1.73 sq M.predicted among non-blacks MDRD (S/P/Bld) [Vol rate/Area] mL/min/{1.73_m2} Normal >60 [facility] Comment on above: Order Comment: No: D o not add to previous draw Pt in bath room askme to come back Performed By: #### 3 5200 #### [facility] [address] [place] [address], [place] Glucose [Mass/Vol] 110 mg/dL High 70-100 [facility] Comment on above: Order Comment: No: D o not add to previous draw Pt in bath room askme to come back Performed By: #### 3 5200 #### [facility] [address] [place] [address], [facility] Potassium [Moles/Vol] 3.7 mmol/L Normal 3.5-5.1 [facility] Comment on above: Order Comment: No: D o not add to previous draw Pt in bath room askme to come back Performed By: #### 3 5200 #### [facility] [address] Sodium [Moles/Vol] 137 mmol/L Normal 136-145 [facility] Comment on above: Order Comment: No: D o not add to previous draw Pt in bath room askme to come back Performed By: #### 3 5200 #### [facility] [address] [facility] [address] Urea nitrogen [Mass/Vol] 18 mg/dL Normal 7-25 [facility] Comment on above: Order Comment: No: D o not add to previous draw Pt in bath room askme to come back Performed By: #### 3 5200 #### [facility] [address] [facility] TACROLIMUSon 08-17-2020 Tacrolimus (Bld) [Mass/Vol] 4.0 ng/mL Low 5.0-20.0 [facility] Comment on above: Order Comment: Unkno wn Result Comment: The [employer] Tacrolimus assay is a delayed one-step immunoassay for the quantitative determination of tacrolimus in human whole blood using the chemiluminescent microparticle immunoassay (CMIA) technology with flexible assay protocols, referred to as Chemiflex. Performed By: #### 2 5508, 84455, 64340, 74608, 90862 #### [facility] [address] BASIC METABOLIC PANELon 05-0 Calcium [Mass/Vol] 8.3 mg/dL Low 8.6-10.3 [facility] Comment on above: Order Comment: Yes: Add to Previous draw if able Performed By: #### 2 5508, 27370, 41894, 77214, 69370 #### [facility] [address] [place] [id number], [place] Chloride [Moles/Vol] 104 mmol/L Normal 98-107 [facility] Comment on above: Order Comment: Yes: Add to Previous draw if able Performed By: #### 2 5508, 60002, 79450, 47498, 74183 #### [facility] [address] [place] [address], [place] CO2 [Moles/Vol] 24 mmol/L Normal 21-31 [facility] Comment on above: Order Comment: Yes: Add to Previous draw if able Performed By: #### 2 5508, 82394, 29551, 90217, 61582 #### [facility] [address] [place] [address], [place] Creatinine [Mass/Vol] 0.82 mg/dL Normal 0.70-1.30 [facility] Comment on above: Order Comment: Yes: Add to Previous draw if able Performed By: #### 2 5508, 04495, 09798, 82057, 82094 #### [facility] [address] [place] [address], [place] GFR/1.73 sq M.predicted among blacks MDRD (S/P/Bld) [Vol rate/Area] mL/min/{1.73_m2} Normal >60 [facility] Comment on above: Order Comment: Yes: Add to Previous draw if able Performed By: #### 2 5508, 85729, 79558, 28011, 91515 #### [facility] [address] [place] [address], [place] GFR/1.73 sq M.predicted among non-blacks MDRD (S/P/Bld) [Vol rate/Area] mL/min/{1.73_m2} Normal >60 [facility] Comment on above: Order Comment: Yes: Add to Previous draw if able Performed By: #### 2 5508, 55323, 29202, 44462, 13833 #### [facility] [address] [place] [address], [place] Glucose [Mass/Vol] 114 mg/dL High 70-100 [facility] Comment on above: Order Comment: Yes: Add to Previous draw if able Performed By: #### 2 5508, 93341, 46635, 77565, 51454 #### [facility] [address] [place] [address], [place] Potassium [Moles/Vol] 4.1 mmol/L Normal 3.5-5.1 [facility] Comment on above: Order Comment: Yes: Add to Previous draw if able Performed By: #### 2 5508, 72653, 45961, 21227, 13860 #### [facility] [address] [place] [address], [place] Sodium [Moles/Vol] 135 mmol/L Low 136-145 [facility] Comment on above: Order Comment: Yes: Add to Previous draw if able Performed By: #### 2 5508, 18846, 33252, 97367, 37754 #### [facility] [address] [place] [address], [place] Urea nitrogen [Mass/Vol] 24 mg/dL Normal 7-25 [facility] Comment on above: Order Comment: Yes: Add to Previous draw if able Performed By: #### 2 5508, 82940, 92830, 84873, 21245 #### [facility] [address] [place] [address], [place] MAGNESIUM BLOODon 08-16-2020 Magnesium [Mass/Vol] 1.9 mg/dL Normal 1.9-2.7 [facility] Comment on above: Order Comment: No: D o not add to previous draw Performed By: #### 4 1000, 34035, 99580 ####[facility] [place] [address], [place] PHOSPHORUS BLOODon Phosphate [Mass/Vol] 3.1 mg/dL Normal 2.5-5.0 [facility] Comment on above: Order Comment: No: D o not add to previous draw Performed By: #### 4 1000, 90982, 60114 ####[facility] [facility] [address], [facility] TACROLIMUSon 08-16-2020 Tacrolimus (Bld) [Mass/Vol] 3.5 ng/mL Low 5.0-20.0 [facility] Comment on above: Order Comment: Unkno wn Result Comment: The [employer] Tacrolimus assay is a delayed one-step immunoassay for the quantitative determination of tacrolimus in human whole blood using the chemiluminescent microparticle immunoassay (CMIA) technology with flexible assay protocols, referred to as Chemiflex. Performed By: #### 2 5508, 03568, 98325, 00673, 52111 #### [facility] [address] C REACTIVE PROTEINon 021 CRP [Mass/Vol] 20.9 mg/L High 0.0-7.0 [facility] Comment on above: Order Comment: Yes: Add to Previous draw if able Performed By: #### 2 5508, 06053, 72055, 01157, 21919 #### [facility] [address] [facility]. [address] CPKon 08-15-2020 CK [Catalytic activity/Vol] 38 U/L Normal 30-223 [facility] Comment on above: Order Comment: Unkno wn Performed By: #### 2 5508, 02094, 27890, 51382, 07400 #### [facility] [address] D DIMER TESTon 08-15-2020 D-DIMER TEST 2.03 mcg/mL FEU High 0.27-0.49 [facility] Comment on above: Order Comment: Yes: Add to Previous draw if able Result Comment: D-Di priscilla values of less than 0.50 ug/ml (FEU) are considered to be a negative predictor of thrombosis. However, the D-Dimer result should be used in conjunction with pretest probability and should not be used alone to diagnose a thrombotic event. Performed By: #### 2 5508, 69793, 89547, 84406, 58190 #### [facility] [address] FERRITINon 08-15-2020 Ferritin [Mass/Vol] 1412 ng/mL High 24-336 [facility] Comment on above: Order Comment: Unkno wn Performed By: #### 2 5508, 95455, 93972, 14689, 39947 #### [facility] [address] [facility] [address] LDH BLOODon 08-15-2020 LDH 457 Units/L High 140-271 [facility] Comment on above: Order Comment: Unkno wn Performed By: #### 2 5508, 64103, 21387, 19144, 76656 #### [facility] [address] [facility] LIVER BATTERYon 08-15-2020 Albumin [Mass/Vol] 3.1 g/dL Low 3.5-5.7 [facility] Comment on above: Order Comment: Unkno wn Performed By: #### 2 5508, 99994, 43873, 13277, 44897 #### [facility] [address] [facility] ALKALINE PHOSPH 94 IU/L Normal 34-104 [facility] Comment on above: Order Comment: Unkno wn Performed By: #### 2 5508, 26523, 66728, 42799, 85262 #### [facility] [address] [facility] ALT [Catalytic activity/Vol] 108 U/L High 7-52 [facility] Comment on above: Order Comment: Unkno wn Performed By: #### 2 5508, 88913, 14315, 03315, 91687 #### [facility] [address] AST [Catalytic activity/Vol] 54 U/L High 13-39 [facility] Comment on above: Order Comment: Unkno wn Performed By: #### 2 5508, 67776, 90810, 74997, 76600 #### [facility] [address] [place] [address], [facility] Bilirubin [Mass/Vol] 0.8 mg/dL Normal 0.3-1.0 [facility] Comment on above: Order Comment: Unkno wn Performed By: #### 2 5508, 36134, 37435, 75467, 06982 #### [facility] [address] Bilirubin.direct [Mass/Vol] 0.2 mg/dL Normal 0.0-0.2 [facility] Comment on above: Order Comment: Unkno wn Performed By: #### 2 5508, 14506, 21470, 27285, 79211 #### [facility] [address] Protein [Mass/Vol] 5.9 g/dL Low 6.0-8.3 [facility] Comment on above: Order Comment: Unkno wn Performed By: #### 2 5508, 27351, 59388, 31087, 68282 #### [facility] [address] TACROLIMUSon 08-15-2020 Tacrolimus (Bld) [Mass/Vol] 4.4 ng/mL Low 5.0-20.0 [facility] Comment on above: Order Comment: Yes: Add to Previous draw if able Result Comment: The [employer] Tacrolimus assay is a delayed one-step immunoassay for the quantitative determination of tacrolimus in human whole blood using the chemiluminescent microparticle immunoassay (CMIA) technology with flexible assay protocols, referred to as Chemiflex. Performed By: #### 2 5508, 91914, 25527, 88140, 62562 #### [facility] [address] [place] [address], [facility] BASIC METABOLIC PANELon 04-3 -2020 Calcium [Mass/Vol] 8.2 mg/dL Low 8.6-10.3 [facility] Comment on above: Order Comment: No: D o not add to previous draw Performed By: #### 2 5508, 07077, 22505, 17936, 46811 #### [facility] [address] [place] [address], [place] Chloride [Moles/Vol] 102 mmol/L Normal 98-107 [facility] Comment on above: Order Comment: No: D o not add to previous draw Performed By: #### 2 5508, 55873, 47247, 49520, 38700 #### [facility] [address] [place] [address], [facility] CO2 [Moles/Vol] 19 mmol/L Low 21-31 [facility] Comment on above: Order Comment: No: D o not add to previous draw Performed By: #### 2 5508, 51028, 57085, 43220, 98955 #### [facility] [address] [place] [address], [facility] Creatinine [Mass/Vol] 0.95 mg/dL Normal 0.70-1.30 [facility] Comment on above: Order Comment: No: D o not add to previous draw Performed By: #### 2 5508, 67828, 91441, 33901, 71596 #### [facility] [address] [place] [address], [place] GFR/1.73 sq M.predicted among blacks MDRD (S/P/Bld) [Vol rate/Area] mL/min/{1.73_m2} Normal >60 [facility] Comment on above: Order Comment: No: D o not add to previous draw Performed By: #### 2 5508, 56989, 40715, 86411, 28400 #### [facility] [address] [place] [address], [place] GFR/1.73 sq M.predicted among non-blacks MDRD (S/P/Bld) [Vol rate/Area] mL/min/{1.73_m2} Normal >60 [facility] Comment on above: Order Comment: No: D o not add to previous draw Performed By: #### 2 5508, 04579, 31697, 72753, 33371 #### [facility] [address] [place] [address], [place] Glucose [Mass/Vol] 253 mg/dL High 70-100 [facility] Comment on above: Order Comment: No: D o not add to previous draw Performed By: #### 2 5508, 28050, 46583, 91529, 59364 #### [facility] [address] [place] [address], [place] Potassium [Moles/Vol] 4.0 mmol/L Normal 3.5-5.1 [facility] Comment on above: Order Comment: No: D o not add to previous draw Performed By: #### 2 5508, 47602, 97303, 60828, 69795 #### [facility] [address] [place] [address], [place] Sodium [Moles/Vol] 130 mmol/L Low 136-145 [facility] Comment on above: Order Comment: No: D o not add to previous draw Performed By: #### 2 5508, 93297, 83204, 82738, 38211 #### [facility] [address] [place] [address], [place] Urea nitrogen [Mass/Vol] 34 mg/dL High 7-25 [facility] Comment on above: Order Comment: No: D o not add to previous draw Performed By: #### 2 5508, 24548, 57823, 54321, 38112 #### [facility] [address] [place] [address], [place] C REACTIVE PROTEINon 021 CRP [Mass/Vol] 19.7 mg/L High 0.0-7.0 [facility] Comment on above: Order Comment: No: D o not add to previous draw Performed By: #### 6 1405 #### [facility] [address] [place] [address], [facility] COMP METABOLIC PANELon 08-14 Albumin [Mass/Vol] 3.0 g/dL Low 3.5-5.7 [facility] Comment on above: Order Comment: This order is a replacement of the rejected order with accession [id number]. Performed By: #### 2 5508, 58947, 48396, 78261, 74584 #### [facility] [address] [place] [address], [facility] ALKALINE PHOSPH 81 IU/L Normal 34-104 [facility] Comment on above: Order Comment: This order is a replacement of the rejected order with accession [id number]. Performed By: #### 2 5508, 09049, 31270, 35144, 13356 #### [facility] [address] [place] [address], [facility] ALT [Catalytic activity/Vol] 80 U/L High 7-52 [facility] Comment on above: Order Comment: This order is a replacement of the rejected order with accession [id number]. Performed By: #### 2 5508, 52408, 94957, 43242, 04934 #### [facility] [address] [place] [address], [facility] AST [Catalytic activity/Vol] 52 U/L High 13-39 [facility] Comment on above: Order Comment: This order is a replacement of the rejected order with accession [id number]. Performed By: #### 2 5508, 30646, 19029, 42302, 03176 #### [facility] [address] [place] [address], [facility] Bilirubin [Mass/Vol] 0.7 mg/dL Normal 0.3-1.0 [facility] Comment on above: Order Comment: This order is a replacement of the rejected order with accession [id number]. Performed By: #### 2 5508, 47919, 84081, 26230, 23358 #### [facility] [address] [place] [address], [facility] Calcium [Mass/Vol] 8.1 mg/dL Low 8.6-10.3 [facility] Comment on above: Order Comment: This order is a replacement of the rejected order with accession [id number]. Performed By: #### 2 5508, 35151, 76231, 55131, 60920 #### [facility] [address] [place] [address], [facility] Chloride [Moles/Vol] 102 mmol/L Normal 98-107 [facility] Comment on above: Order Comment: This order is a replacement of the rejected order with accession [id number]. Performed By: #### 2 5508, 52069, 58922, 13834, 60000 #### [facility] [address] [place] [address], [place] CO2 [Moles/Vol] 24 mmol/L Normal 21-31 [facility] Comment on above: Order Comment: This order is a replacement of the rejected order with accession [id number]. Performed By: #### 2 5508, 57820, 15762, 23052, 31029 #### [facility] [address] [place] [address], [place] Creatinine [Mass/Vol] 0.98 mg/dL Normal 0.70-1.30 [facility] Comment on above: Order Comment: This order is a replacement of the rejected order with accession [id number]. Performed By: #### 2 5508, 05558, 87746, 25837, 00923 #### [facility] [address] [place] [address], [place] GFR/1.73 sq M.predicted among blacks MDRD (S/P/Bld) [Vol rate/Area] mL/min/{1.73_m2} Normal >60 [facility] Comment on above: Order Comment: This order is a replacement of the rejected order with accession [id number]. Performed By: #### 2 5508, 37441, 21779, 38158, 00767 #### [facility] [address] [place] [address], [place] GFR/1.73 sq M.predicted among non-blacks MDRD (S/P/Bld) [Vol rate/Area] mL/min/{1.73_m2} Normal >60 [facility] Comment on above: Order Comment: This order is a replacement of the rejected order with accession [id number]. Performed By: #### 2 5508, 09482, 05835, 55299, 03388 #### [facility] [address] [place] [address], [place] Glucose [Mass/Vol] 141 mg/dL High 70-100 [facility] Comment on above: Order Comment: This order is a replacement of the rejected order with accession [id number]. Performed By: #### 2 5508, 83322, 30437, 71142, 22177 #### [facility] [address] [place] [address], [place] Potassium [Moles/Vol] 4.2 mmol/L Normal 3.5-5.1 [facility] Comment on above: Order Comment: This order is a replacement of the rejected order with accession [id number]. Performed By: #### 2 5508, 29036, 70049, 96039, 93177 #### [facility] [address] [place] [address], [place] Protein [Mass/Vol] 5.6 g/dL Low 6.0-8.3 [facility] Comment on above: Order Comment: This order is a replacement of the rejected order with accession [id number]. Performed By: #### 2 5508, 40025, 26613, 91144, 53374 #### [facility] [address] [place] [address], [facility] Sodium [Moles/Vol] 132 mmol/L Low 136-145 [facility] Comment on above: Order Comment: This order is a replacement of the rejected order with accession [id number]. Performed By: #### 2 5508, 04862, 85385, 02779, 13585 #### [facility] [address] [facility] Urea nitrogen [Mass/Vol] 32 mg/dL High 7-25 [facility] Comment on above: Order Comment: This order is a replacement of the rejected order with accession [id number]. Performed By: #### 2 5508, 72745, 91112, 80810, 02537 #### [facility] [address] [facility] [address] CPKon 08-14-2020 CK [Catalytic activity/Vol] 47 U/L Normal 30-223 [facility] Comment on above: Order Comment: No: D o not add to previous draw Performed By: #### 2 5508, 82031, 71735, 12708, 81057 #### [facility] [address] [facility]. [address] D DIMER TESTon 08-14-2020 D-DIMER TEST 2.41 mcg/mL FEU High 0.27-0.49 [facility] Comment on above: Order Comment: No: D o not add to previous draw Result Comment: D-Di priscilla values of less than 0.50 ug/ml (FEU) are considered to be a negative predictor of thrombosis. However, the D-Dimer result should be used in conjunction with pretest probability and should not be used alone to diagnose a thrombotic event. Performed By: #### 6 1405 #### [facility] [address] [facility] [place] [address], [facility] FERRITINon 08-14-2020 Ferritin [Mass/Vol] 836 ng/mL High 24-336 [facility] Comment on above: Order Comment: No: D o not add to previous draw Performed By: #### 2 5508, 18280, 10293, 00394, 06930 #### [facility] [address] [place] [address], [facility] LDH BLOODon 08-14-2020 LDH 310 Units/L High 140-271 [facility] Comment on above: Order Comment: No: D o not add to previous draw Performed By: #### 2 5508, 32849, 59514, 90558, 31830 #### [facility] [address] [place] [address], [facility] LIVER BATTERYon 08-14-2020 Albumin [Mass/Vol] 2.9 g/dL Low 3.5-5.7 [facility] Comment on above: Order Comment: No: D o not add to previous draw Performed By: #### 2 5508, 06032, 81016, 26067, 12317 #### [facility] [address] [place] [address], [facility] ALKALINE PHOSPH 78 IU/L Normal 34-104 [facility] Comment on above: Order Comment: No: D o not add to previous draw Performed By: #### 2 5508, 38983, 62860, 59065, 24178 #### [facility] [address] [place] [address], [place] ALT [Catalytic activity/Vol] 83 U/L High 7-52 [facility] Comment on above: Order Comment: No: D o not add to previous draw Performed By: #### 2 5508, 68411, 76008, 65119, 58619 #### [facility] [address] [place] [address], [place] AST [Catalytic activity/Vol] 46 U/L High 13-39 [facility] Comment on above: Order Comment: No: D o not add to previous draw Performed By: #### 2 5508, 95097, 39515, 63602, 69352 #### [facility] [address] Bilirubin [Mass/Vol] 0.6 mg/dL Normal 0.3-1.0 [facility] Comment on above: Order Comment: No: D o not add to previous draw Performed By: #### 2 5508, 10170, 26042, 90988, 95164 #### [facility] [address] Bilirubin.direct [Mass/Vol] 0.2 mg/dL Normal 0.0-0.2 [facility] Comment on above: Order Comment: No: D o not add to previous draw Performed By: #### 2 5508, 27312, 12149, 76806, 99382 #### [facility] [address] [facility] Protein [Mass/Vol] 5.3 g/dL Low 6.0-8.3 [facility] Comment on above: Order Comment: No: D o not add to previous draw Performed By: #### 2 5508, 21035, 79612, 95507, [id number] #### [facility] [address] [facility] OSMOLALITY BLOODon Osmolality [Osmolality] 291 mosm/kg Normal 285-305 [facility] Comment on above: Order Comment: No: D o not add to previous draw Performed By: #### 2 5508, 68639, 93297, 50436, 68952 #### [facility] TACROLIMUSon 08-14-2020 Tacrolimus (Bld) [Mass/Vol] 9.7 ng/mL Normal 5.0-20.0 [facility] Comment on above: Order Comment: Yes: Add to Previous draw if able Result Comment: The [employer] Tacrolimus assay is a delayed one-step immunoassay for the quantitative determination of tacrolimus in human whole blood using the chemiluminescent microparticle immunoassay (CMIA) technology with flexible assay protocols, referred to as Chemiflex. Performed By: #### 2 5508, 39198, 62695, 84148, 26458 #### [facility] [address] [place] [address], [facility] Tacrolimus (Bld) [Mass/Vol] 5.7 ng/mL Normal 5.0-20.0 [facility] Comment on above: Order Comment: Yes: Add to Previous draw if able Result Comment: The [employer] Tacrolimus assay is a delayed one-step immunoassay for the quantitative determination of tacrolimus in human whole blood using the chemiluminescent microparticle immunoassay (CMIA) technology with flexible assay protocols, referred to as Chemiflex. Performed By: #### 2 5508, 17089, 94194, 41592, 72584 #### [facility] [address] [facility] COMP METABOLIC PANELon 08-12 Albumin [Mass/Vol] 3.2 g/dL Low 3.5-5.7 [facility] Comment on above: Order Comment: No: D o not add to previous draw Performed By: #### 2 5508, 80204, 19461, 66763, 64818 #### [facility] [address] [facility] [place] [address], [facility] ALKALINE PHOSPH 89 IU/L Normal 34-104 [facility] Comment on above: Order Comment: No: D o not add to previous draw Performed By: #### 2 5508, 98258, 00035, 75787, 45198 #### [facility] [address] [facility] ALT [Catalytic activity/Vol] 69 U/L High 7-52 [facility] Comment on above: Order Comment: No: D o not add to previous draw Performed By: #### 2 5508, 88656, 81740, 79737, 82075 #### [facility] [address] [facility] [place] [address], [facility] AST [Catalytic activity/Vol] 54 U/L High 13-39 [facility] Comment on above: Order Comment: No: D o not add to previous draw Performed By: #### 2 5508, 40754, 23226, 99846, 40796 #### [facility] [address] [place] [address], [place] Bilirubin [Mass/Vol] 1.0 mg/dL Normal 0.3-1.0 [facility] Comment on above: Order Comment: No: D o not add to previous draw Performed By: #### 2 5508, 03878, 00392, 97689, 15483 #### [facility] [address] [place] [address], [place] Calcium [Mass/Vol] 8.8 mg/dL Normal 8.6-10.3 [facility] Comment on above: Order Comment: No: D o not add to previous draw Performed By: #### 2 5508, 80683, 34929, 90034, 96890 #### [facility] [address] [place] [address], [place] Chloride [Moles/Vol] 97 mmol/L Low 98-107 [facility] Comment on above: Order Comment: No: D o not add to previous draw Performed By: #### 2 5508, 12129, 76968, 48782, 10925 #### [facility] [address] [place] [address], [place] CO2 [Moles/Vol] 24 mmol/L Normal 21-31 [facility] Comment on above: Order Comment: No: D o not add to previous draw Performed By: #### 2 5508, 54166, 52961, 42722, 54403 #### [facility] [address] [place] [address], [place] Creatinine [Mass/Vol] 0.82 mg/dL Normal 0.70-1.30 [facility] Comment on above: Order Comment: No: D o not add to previous draw Performed By: #### 2 5508, 16107, 73100, 08549, 77451 #### [facility] [address] [place] [address], [place] GFR/1.73 sq M.predicted among blacks MDRD (S/P/Bld) [Vol rate/Area] mL/min/{1.73_m2} Normal >60 [facility] Comment on above: Order Comment: No: D o not add to previous draw Performed By: #### 2 5508, 75544, 65523, 21579, 02621 #### [facility] [address] [place] [address], [place] GFR/1.73 sq M.predicted among non-blacks MDRD (S/P/Bld) [Vol rate/Area] mL/min/{1.73_m2} Normal >60 [facility] Comment on above: Order Comment: No: D o not add to previous draw Performed By: #### 2 5508, 60126, 93199, 95094, 14483 #### [facility] [address] [place] [address], [place] Glucose [Mass/Vol] 154 mg/dL High 70-100 [facility] Comment on above: Order Comment: No: D o not add to previous draw Performed By: #### 2 5508, 78237, 75040, 70796, 81264 #### [facility] [address] [place] [address], [place] Potassium [Moles/Vol] 4.9 mmol/L Normal 3.5-5.1 [facility] Comment on above: Order Comment: No: D o not add to previous draw Performed By: #### 2 5508, 94147, 64023, 02265, 15864 #### [facility] [address] [place] [address], [place] Protein [Mass/Vol] 6.1 g/dL Normal 6.0-8.3 [facility] Comment on above: Order Comment: No: D o not add to previous draw Performed By: #### 2 5508, 07475, 20331, 73032, 03253 #### [facility] [address] [place] [address], [place] Sodium [Moles/Vol] 128 mmol/L Low 136-145 [facility] Comment on above: Order Comment: No: D o not add to previous draw Performed By: #### 2 5508, 83256, 83454, 75955, 18255 #### [facility] [address] [place] [address], [facility] Urea nitrogen [Mass/Vol] 32 mg/dL High 7-25 [facility] Comment on above: Order Comment: No: D o not add to previous draw Performed By: #### 2 5508, 34080, 39639, 80503, 46513 #### [facility] [address] [facility] [address], [facility] OSMOLALITY URINEon OSMOLALITY 857 mOsm/kg Normal 50-1400 [facility] Comment on above: Order Comment: No: D o not add to previous draw Performed By: #### 2 5508, 73060, 36911, 31326, 13880 #### [facility] [address] [facility] [place] [address], [facility] SODIUM URINE RANDOMon 2020 Sodium (U) [Moles/Vol] 51 mmol/L Normal [facility] Comment on above: Order Comment: No: D o not add to previous draw Result Comment: Ther e are no established reference values for random urine specimens Performed By: #### 2 5508, 69885, 77343, 11158, 87694 #### [facility] [address] [facility] [address], [facility] TACROLIMUSon 08-12-2020 Tacrolimus (Bld) [Mass/Vol] 5.2 ng/mL Normal 5.0-20.0 [facility] Comment on above: Order Comment: Unkno wn Result Comment: The [employer] Tacrolimus assay is a delayed one-step immunoassay for the quantitative determination of tacrolimus in human whole blood using the chemiluminescent microparticle immunoassay (CMIA) technology with flexible assay protocols, referred to as Chemiflex. Performed By: #### 9 9914 ####[facility] [facility] [place] [place] [address], [facility] BASIC METABOLIC PANELon 04-2 Calcium [Mass/Vol] 8.6 mg/dL Normal 8.6-10.3 [facility] Comment on above: Order Comment: No: D o not add to previous draw Performed By: #### 2 5508, 79091, 75158, 70421, 86454 #### [facility] [address] [place] [address], [place] Chloride [Moles/Vol] 97 mmol/L Low 98-107 [facility] Comment on above: Order Comment: No: D o not add to previous draw Performed By: #### 2 5508, 17852, 32432, 10799, 06645 #### [facility] [address] [place] [address], [place] CO2 [Moles/Vol] 23 mmol/L Normal 21-31 [facility] Comment on above: Order Comment: No: D o not add to previous draw Performed By: #### 2 5508, 66259, 40822, 99593, 28408 #### [facility] [address] [place] [address], [place] Creatinine [Mass/Vol] 0.82 mg/dL Normal 0.70-1.30 [facility] Comment on above: Order Comment: No: D o not add to previous draw Performed By: #### 2 5508, 07106, 89534, 23120, 16321 #### [facility] [address] [place] [address], [place] GFR/1.73 sq M.predicted among blacks MDRD (S/P/Bld) [Vol rate/Area] mL/min/{1.73_m2} Normal >60 [facility] Comment on above: Order Comment: No: D o not add to previous draw Performed By: #### 2 5508, 13044, 37584, 27467, 19758 #### [facility] [address] [place] [address], [place] GFR/1.73 sq M.predicted among non-blacks MDRD (S/P/Bld) [Vol rate/Area] mL/min/{1.73_m2} Normal >60 [facility] Comment on above: Order Comment: No: D o not add to previous draw Performed By: #### 2 5508, 68314, 94450, 46803, 31661 #### [facility] [address] [place] [address], [place] Glucose [Mass/Vol] 166 mg/dL High 70-100 [facility] Comment on above: Order Comment: No: D o not add to previous draw Performed By: #### 2 5508, 38861, 90068, 20627, 57755 #### [facility] [address] [place] [address], [facility] Potassium [Moles/Vol] 4.9 mmol/L Normal 3.5-5.1 [facility] Comment on above: Order Comment: No: D o not add to previous draw Performed By: #### 2 5508, 77478, 97377, 85193, 45409 #### [facility] [address] [place] [address], [place] Sodium [Moles/Vol] 127 mmol/L Low 136-145 [facility] Comment on above: Order Comment: No: D o not add to previous draw Performed By: #### 2 5508, 45679, 06707, 38800, 26145 #### [facility] [address] [place] [address], [place] Urea nitrogen [Mass/Vol] 33 mg/dL High 7-25 [facility] Comment on above: Order Comment: No: D o not add to previous draw Performed By: #### 2 5508, 52590, 55058, 41511, 12463 #### [facility] [address] [place] [address], [place] CREATININE URINE RANDOMon Creatinine (U) [Mass/Vol] 59.0 mg/dL Normal [facility] Comment on above: Order Comment: Yes: Add to Previous draw if able Result Comment: Ther e are no established reference values for random urine specimens Performed By: #### 2 5508, 68437, 17994, 59880, 39969 #### [facility] [address] [place] [address], [facility] MAGNESIUM BLOODon 08-11-2020 Magnesium [Mass/Vol] 1.7 mg/dL Low 1.9-2.7 [facility] Comment on above: Order Comment: No: D o not add to previous draw Performed By: #### 2 5508, 75471, 98308, 87467, 80343 #### [facility] [address] SODIUM URINE RANDOMon 2020 Sodium (U) [Moles/Vol] 90 mmol/L Normal [facility] Comment on above: Order Comment: Yes: Add to Previous draw if able Result Comment: Ther e are no established reference values for random urine specimens Performed By: #### 2 5508, 14086, 06117, 14261, 51264 #### [facility] [address] [place] [address], [facility] TACROLIMUSon 08-11-2020 Tacrolimus (Bld) [Mass/Vol] 6.3 ng/mL Normal 5.0-20.0 [facility] Comment on above: Order Comment: Yes: Add to Previous draw if able Result Comment: The [employer] Tacrolimus assay is a delayed one-step immunoassay for the quantitative determination of tacrolimus in human whole blood using the chemiluminescent microparticle immunoassay (CMIA) technology with flexible assay protocols, referred to as Chemiflex. Performed By: #### 2 5508, 95816, 07828, 30890, 09583 #### [facility] [address] [place] [address], [facility] BASIC METABOLIC PANELon 07-17 Calcium [Mass/Vol] 8.3 mg/dL Low 8.6-10.3 [facility] Comment on above: Order Comment: Yes: Add to Previous draw if able Performed By: #### 2 5508, 80980, 55238, 89925, 56342 #### [facility] [address] [place] [address], [facility] Chloride [Moles/Vol] 102 mmol/L Normal 98-107 [facility] Comment on above: Order Comment: Yes: Add to Previous draw if able Performed By: #### 2 5508, 38087, 98873, 40287, 57617 #### [facility] [address] [place] [address], [place] CO2 [Moles/Vol] 20 mmol/L Low 21-31 [facility] Comment on above: Order Comment: Yes: Add to Previous draw if able Performed By: #### 2 5508, 90699, 85145, 96210, 50396 #### [facility] [address] [place] [address], [facility] Creatinine [Mass/Vol] 0.78 mg/dL Normal 0.70-1.30 [facility] Comment on above: Order Comment: Yes: Add to Previous draw if able Performed By: #### 2 5508, 06603, 43200, 57457, 42708 #### [facility] [address] [place] [address], [place] GFR/1.73 sq M.predicted among blacks MDRD (S/P/Bld) [Vol rate/Area] mL/min/{1.73_m2} Normal >60 [facility] Comment on above: Order Comment: Yes: Add to Previous draw if able Performed By: #### 2 5508, 65479, 43389, 88663, 13511 #### [facility] [address] [place] [address], [place] GFR/1.73 sq M.predicted among non-blacks MDRD (S/P/Bld) [Vol rate/Area] mL/min/{1.73_m2} Normal >60 [facility] Comment on above: Order Comment: Yes: Add to Previous draw if able Performed By: #### 2 5508, 63561, 19780, 39466, 00493 #### [facility] [address] [place] [address], [place] Glucose [Mass/Vol] 199 mg/dL High 70-100 [facility] Comment on above: Order Comment: Yes: Add to Previous draw if able Performed By: #### 2 5508, 05389, 13331, 46243, 22382 #### [facility] [address] [place] [address], [place] Potassium [Moles/Vol] 4.9 mmol/L Normal 3.5-5.1 [facility] Comment on above: Order Comment: Yes: Add to Previous draw if able Performed By: #### 2 5508, 35960, 90424, 19096, 11349 #### [facility] [address] [place] [address], [facility] Sodium [Moles/Vol] 129 mmol/L Low 136-145 [facility] Comment on above: Order Comment: Yes: Add to Previous draw if able Performed By: #### 2 5508, 23090, 10554, 93984, 58858 #### [facility] [address] [place] [address], [facility] Urea nitrogen [Mass/Vol] 33 mg/dL High 7-25 [facility] Comment on above: Order Comment: Yes: Add to Previous draw if able Performed By: #### 2 5508, 18263, 20832, 68836, 11997 #### [facility] [address] [place] [address], [place] CBC COMPLETE BLOOD COUNTon 0 - Erythrocyte distribution width (RBC) [Ratio] 12.9 % Normal 11.5-15.0 [facility] Comment on above: Order Comment: No: D o not add to previous draw Performed By: #### 6 1405 #### [facility] [address] [place] [id number], [facility] Hematocrit (Bld) [Volume fraction] 45.9 % Normal 39.0-50.0 [facility] Comment on above: Order Comment: No: D o not add to previous draw Performed By: #### 6 1405 #### [facility] [address] [place] [address], [facility] Hemoglobin (Bld) [Mass/Vol] 15.3 g/dL Normal 13.0-17.0 [facility] Comment on above: Order Comment: No: D o not add to previous draw Performed By: #### 6 1405 #### [facility] [address] [place] [id number], [facility] MCH (RBC) [Entitic mass] 29.3 pg Normal 27.0-33.0 [facility] Comment on above: Order Comment: No: D o not add to previous draw Performed By: #### 6 1405 #### [facility] [address] [place] [address], [facility] MCHC (RBC) [Mass/Vol] 33.3 g/dL Normal 32.0-35.0 [facility] Comment on above: Order Comment: No: D o not add to previous draw Performed By: #### 6 1405 #### [facility] [address] [place] [address], [facility] MCV (RBC) [Entitic vol] 87.8 fL Normal 82.0-98.0 [facility] Comment on above: Order Comment: No: D o not add to previous draw Performed By: #### 6 1405 #### [facility] [address] [place] [address], [facility] Nucleated RBC/100 WBC (Bld) [Ratio] 0 % Normal 0-0 [facility] Comment on above: Order Comment: No: D o not add to previous draw Performed By: #### 6 1405 #### [facility] [address] [place] [address], [facility] PLAT CNT 422 10*3/uL High 150-400 [facility] Comment on above: Order Comment: No: D o not add to previous draw Performed By: #### 6 1405 #### [facility] [address] [facility] [place] [address], [facility] RBC (Bld) [#/Vol] 5.23 10*6/uL Normal 4.20-5.70 [facility] Comment on above: Order Comment: No: D o not add to previous draw Performed By: #### 6 1405 #### [facility] [address] [place] [address], [facility] WBC (Bld) [#/Vol] 7.77 10*3/uL Normal 4.00-10.60 [facility] Comment on above: Order Comment: No: D o not add to previous draw Performed By: #### 6 1405 #### [facility] [address] [place] [address], [facility] MAGNESIUM BLOODon 08-10-2020 Magnesium [Mass/Vol] 1.7 mg/dL Low 1.9-2.7 [facility] Comment on above: Order Comment: Yes: Add to Previous draw if able Performed By: #### 2 5508, 07366, 24518, 85295, 68503 #### [facility] [address] PORTABLE CHEST 1 VIEWon 07-17 PORTABLE CHEST 1 VIEW [facility] Department of Radiology [address] [place] [id number] Patient Name: VISHAL DUKE : 1960 Sex: M Age: Race: White Pt. Location: [id number] Patient Status: I Ordered Date: 08/10/2020 7:40:00 AM Completed Date: 08/10/2020 09:42 AM Requesting Provider: GIOVANA COSME Attending Provider: YOJANA TRUJILLO Report Copy To: Signs & Symptoms: O2 Desaturation History: Comments: Evaluate for Atelectasis Exam: PORTABLE CHEST 1 VIEW PORTABLE CHEST 1 VIEW 08/10/2020 9:42 AM [...] pneumothorax. Electronically signed: Brett Mc. Transcribed by: [email or web address], User Resident: Electronically Signed by: BRETT MC @ 08/10/2020 10:10 AM Normal [facility] Comment on above: Order Comment: No: D o not add to previous draw CV'D BY [facility] AT 1240 TACROLIMUSon 08-10-2020 Tacrolimus (Bld) [Mass/Vol] 11.2 ng/mL Normal 5.0-20.0 [facility] Comment on above: Order Comment: No: D o not add to previous draw Result Comment: The [employer] Tacrolimus assay is a delayed one-step immunoassay for the quantitative determination of tacrolimus in human whole blood using the chemiluminescent microparticle immunoassay (CMIA) technology with flexible assay protocols, referred to as Chemiflex. Performed By: #### 2 5508, 78750, 44898, 40388, 65353 #### [facility] [address] [facility] [address] TACROLIMUSon 08-09-2020 Tacrolimus (Bld) [Mass/Vol] 11.0 ng/mL Normal 5.0-20.0 [facility] Comment on above: Order Comment: Yes: Add to Previous draw if able Result Comment: The [employer] Tacrolimus assay is a delayed one-step immunoassay for the quantitative determination of tacrolimus in human whole blood using the chemiluminescent microparticle immunoassay (CMIA) technology with flexible assay protocols, referred to as Chemiflex. Performed By: #### 2 5508, 42716, 57296, 41338, 22896 #### [facility] [address] [facility] [address] TROPONIN-Ion 08-09-2020 Troponin I.cardiac [Mass/Vol] 5.31 ng/mL Critically high 0.00-0.04 [facility] Comment on above: Order Comment: Yes: Add to Previous draw if able Result Comment: M-OR EVIOUS CRITICAL RESULT REFERENCE RANGES: 0.00 - 0.04 ng/ml NORMAL 0.05 - 0.50 ng/ml INDETERMINATE > 0.50 ng/ml CONSISTENT WITH AN M.I. Performed By: #### 2 5508, 01054, 94420, 95479, 69212 #### [facility] [address] [facility] [place] [address], [facility] UFH HEPARIN ASSAYon 08-10-19 21 UNFRACTIONATED HEPARIN <0.10 Critically low 0.30-0.70 [facility] Comment on above: Result Comment: Gabby roxaban and Apixaban will interfere with the anti Xa assay used to monitor UFH and LMWH. Results called. Accurately read back by Luiz Shaffer RN at 0709 Performed By: #### 3 0477 ####[facility].[address] COMP METABOLIC PANELon 08-08 Albumin [Mass/Vol] 2.8 g/dL Low 3.5-5.7 [facility] Comment on above: Order Comment: Yes: Add to Previous draw if able Performed By: #### 2 5508, 34215, 25827, 45101, 39113 #### [facility] [address] [place] [address], [place] ALKALINE PHOSPH 70 IU/L Normal 34-104 [facility] Comment on above: Order Comment: Yes: Add to Previous draw if able Performed By: #### 2 5508, 49171, 65168, 90005, 86248 #### [facility] [address] [place] [address], [place] ALT [Catalytic activity/Vol] 30 U/L Normal 7-52 [facility] Comment on above: Order Comment: Yes: Add to Previous draw if able Performed By: #### 2 5508, 79235, 18948, 96807, 22587 #### [facility] [address] [place] [address], [place] AST [Catalytic activity/Vol] 48 U/L High 13-39 [facility] Comment on above: Order Comment: Yes: Add to Previous draw if able Performed By: #### 2 5508, 42801, 73376, 36101, 88437 #### [facility] [address] [place] [address], [place] Bilirubin [Mass/Vol] 0.9 mg/dL Normal 0.3-1.0 [facility] Comment on above: Order Comment: Yes: Add to Previous draw if able Performed By: #### 2 5508, 31471, 32478, 54973, 50022 #### [facility] [address] [place] [address], [place] Calcium [Mass/Vol] 8.1 mg/dL Low 8.6-10.3 [facility] Comment on above: Order Comment: Yes: Add to Previous draw if able Performed By: #### 2 5508, 38309, 83625, 56661, 25216 #### [facility] [address] [place] [address], [facility] Chloride [Moles/Vol] 104 mmol/L Normal 98-107 [facility] Comment on above: Order Comment: Yes: Add to Previous draw if able Performed By: #### 2 5508, 25431, 17179, 86949, 47717 #### [facility] [address] [place] [address], [place] CO2 [Moles/Vol] 19 mmol/L Low 21-31 [facility] Comment on above: Order Comment: Yes: Add to Previous draw if able Performed By: #### 2 5508, 76940, 54146, 72989, 22129 #### [facility] [address] [place] [address], [place] Creatinine [Mass/Vol] 0.92 mg/dL Normal 0.70-1.30 [facility] Comment on above: Order Comment: Yes: Add to Previous draw if able Performed By: #### 2 5508, 77995, 30396, 67544, 06570 #### [facility] [address] [place] [address], [place] GFR/1.73 sq M.predicted among blacks MDRD (S/P/Bld) [Vol rate/Area] mL/min/{1.73_m2} Normal >60 [facility] Comment on above: Order Comment: Yes: Add to Previous draw if able Performed By: #### 2 5508, 61823, 82223, 63095, 32049 #### [facility] [address] [place] [address], [place] GFR/1.73 sq M.predicted among non-blacks MDRD (S/P/Bld) [Vol rate/Area] mL/min/{1.73_m2} Normal >60 [facility] Comment on above: Order Comment: Yes: Add to Previous draw if able Performed By: #### 2 5508, 04084, 30076, 67051, 72039 #### [facility] [address] [place] [address], [facility] Glucose [Mass/Vol] 159 mg/dL High 70-100 [facility] Comment on above: Order Comment: Yes: Add to Previous draw if able Performed By: #### 2 5508, 53374, 44090, 85272, 74444 #### [facility] [address] [place] [address], [facility] Potassium [Moles/Vol] 5.2 mmol/L High 3.5-5.1 [facility] Comment on above: Order Comment: Yes: Add to Previous draw if able Performed By: #### 2 5508, 21809, 28567, 75602, 05474 #### [facility] [address] [place] [id number], [facility] Protein [Mass/Vol] 5.5 g/dL Low 6.0-8.3 [facility] Comment on above: Order Comment: Yes: Add to Previous draw if able Performed By: #### 2 5508, 34937, 65418, 20058, 75837 #### [facility] [address] [place] [address], [facility] Sodium [Moles/Vol] 133 mmol/L Low 136-145 [facility] Comment on above: Order Comment: Yes: Add to Previous draw if able Performed By: #### 2 5508, 41650, 86470, 49746, 42268 #### [facility] [address] [place] [id number], [facility] Urea nitrogen [Mass/Vol] 35 mg/dL High 7-25 [facility] Comment on above: Order Comment: Yes: Add to Previous draw if able Performed By: #### 2 5508, 81172, 43020, 28164, 87034 #### [facility] [address] [place] [id number], [facility] TACROLIMUSon 08-08-2020 Tacrolimus (Bld) [Mass/Vol] 7.8 ng/mL Normal 5.0-20.0 [facility] Comment on above: Order Comment: Unkno wn Result Comment: The [employer] Tacrolimus assay is a delayed one-step immunoassay for the quantitative determination of tacrolimus in human whole blood using the chemiluminescent microparticle immunoassay (CMIA) technology with flexible assay protocols, referred to as Chemiflex. Performed By: #### 2 5508, 22129, 13270, 00905, 88526 #### [facility] [address] [facility]. [address] UFH HEPARIN ASSAYon 08-09-19 21 UNFRACTIONATED HEPARIN 0.74 IU/mL High 0.30-0.70 [facility] Comment on above: Result Comment: Beatrice roxaban and Apixaban will interfere with the anti Xa assay used to monitor UFH and LMWH. Performed By: #### 3 0477 ####[facility] C REACTIVE PROTEINon 021 CRP [Mass/Vol] 75.8 mg/L High 0.0-7.0 [facility] Comment on above: Order Comment: No: D o not add to previous draw CV'D BY IMM LAB AT 1240 Performed By: #### 6 1405 #### [facility] [address] SEDIMENTATION RATEon 021 SED RATE 30 mm/hr High 0-10 [facility] Comment on above: Order Comment: No: D o not add to previous draw Performed By: #### 6 1405 #### [facility] [address] TACROLIMUSon 08-07-2020 Tacrolimus (Bld) [Mass/Vol] 9.1 ng/mL Normal 5.0-20.0 [facility] Comment on above: Order Comment: Unkno wn Result Comment: The [employer] Tacrolimus assay is a delayed one-step immunoassay for the quantitative determination of tacrolimus in human whole blood using the chemiluminescent microparticle immunoassay (CMIA) technology with flexible assay protocols, referred to as Chemiflex. Performed By: #### 9 9914 #### [facility] [address] TROPONIN-Ion 08-07-2020 Troponin I.cardiac [Mass/Vol] 7.37 ng/mL Critically high 0.00-0.04 [facility] Comment on above: Order Comment: Yes: Add to Previous draw if able Result Comment: M-OR EVIOUS CRITICAL RESULT 42.94 REFERENCE RANGES: 0.00 - 0.04 ng/ml NORMAL 0.05 - 0.50 ng/ml INDETERMINATE > 0.50 ng/ml CONSISTENT WITH AN M.I. Performed By: #### 2 5508, 17363, 31426, 18095, 06879 #### [facility] [address] [place] [address], [facility] UFH HEPARIN ASSAYon 08-08-19 UNFRACTIONATED HEPARIN 0.48 IU/mL Normal 0.30-0.70 [facility] Comment on above: Result Comment: Beatrice roxaban and Apixaban will interfere with the anti Xa assay used to monitor UFH and LMWH. Performed By: #### 3 0477 ####[facility] [facility] [address] CBC COMPLETE BLOOD COUNTon 0 08-06-2020 Erythrocyte distribution width (RBC) [Ratio] 13.2 % Normal 11.5-15.0 [facility] Comment on above: Order Comment: Yes: Add to Previous draw if able Performed By: #### 2 5508, 79755, 63348, 71614, 08189 #### [facility] [address] [place] [address], [facility] Hematocrit (Bld) [Volume fraction] 44.8 % Normal 39.0-50.0 [facility] Comment on above: Order Comment: Yes: Add to Previous draw if able Performed By: #### 2 5508, 07187, 23976, 41395, 59429 #### [facility] [address] [place] [address], [facility] Hemoglobin (Bld) [Mass/Vol] 14.8 g/dL Normal 13.0-17.0 [facility] Comment on above: Order Comment: Yes: Add to Previous draw if able Performed By: #### 2 5508, 88305, 22179, 01532, 51937 #### [facility] [address] [place] [address], [facility] MCH (RBC) [Entitic mass] 29.0 pg Normal 27.0-33.0 [facility] Comment on above: Order Comment: Yes: Add to Previous draw if able Performed By: #### 2 5508, 64378, 31094, 58577, 90160 #### [facility] [address] [facility] [address], [facility] MCHC (RBC) [Mass/Vol] 33.0 g/dL Normal 32.0-35.0 [facility] Comment on above: Order Comment: Yes: Add to Previous draw if able Performed By: #### 2 5508, 15280, 64591, 68245, 77439 #### [facility] [address] [facility] [place] [address], [facility] MCV (RBC) [Entitic vol] 87.8 fL Normal 82.0-98.0 [facility] Comment on above: Order Comment: Yes: Add to Previous draw if able Performed By: #### 2 5508, 27331, 53062, 97591, 00781 #### [facility] [address] [facility] [place] [address], [facility] Nucleated RBC/100 WBC (Bld) [Ratio] 0 % Normal 0-0 [facility] Comment on above: Order Comment: Yes: Add to Previous draw if able Performed By: #### 2 5508, 45594, 95889, 90339, 61960 #### [facility] [address] [place] [address], [facility] PLAT CNT 367 10*3/uL Normal 150-400 [facility] Comment on above: Order Comment: Yes: Add to Previous draw if able Performed By: #### 2 5508, 60053, 02838, 17197, 12771 #### [facility] [address] [place] [address], [facility] RBC (Bld) [#/Vol] 5.10 10*6/uL Normal 4.20-5.70 [facility] Comment on above: Order Comment: Yes: Add to Previous draw if able Performed By: #### 2 5508, 29935, 41126, 36401, 09322 #### [facility] [address] [place] [address], [facility] WBC (Bld) [#/Vol] 3.94 10*3/uL Low 4.00-10.60 [facility] Comment on above: Order Comment: Yes: Add to Previous draw if able Performed By: #### 2 5508, 03973, 50674, 52227, 64667 #### [facility] [address] COMP METABOLIC PANELon 08-06 Albumin [Mass/Vol] 3.0 g/dL Low 3.5-5.7 [facility] Comment on above: Order Comment: No: D o not add to previous drawLABS DRAWN IN SAME HAND PAUSED IV. PT IS TO REMAIN FACE DOWN ONSTOMACH PER RN SO THAT IS THE ONLY PLACE WE CAN DRAW FROM RIGHT NOW. Performed By: #### 2 5508, 98896, 48067, 09504, 04892 #### [facility] [address] [place] [address], [facility] ALKALINE PHOSPH 74 IU/L Normal 34-104 [facility] Comment on above: Order Comment: No: D o not add to previous drawLABS DRAWN IN SAME HAND PAUSED IV. PT IS TO REMAIN FACE DOWN ONSTOMACH PER RN SO THAT IS THE ONLY PLACE WE CAN DRAW FROM RIGHT NOW. Performed By: #### 2 5508, 95220, 68016, 14689, 92462 #### [facility] [address] ALT [Catalytic activity/Vol] 42 U/L Normal 7-52 [facility] Comment on above: Order Comment: No: D o not add to previous drawLABS DRAWN IN SAME HAND PAUSED IV. PT IS TO REMAIN FACE DOWN ONSTOMACH PER RN SO THAT IS THE ONLY PLACE WE CAN DRAW FROM RIGHT NOW. Performed By: #### 2 5508, 52117, 68851, 16665, 84653 #### [facility] [address] [place] [address], [facility] AST [Catalytic activity/Vol] 112 U/L High 13-39 [facility] Comment on above: Order Comment: No: D o not add to previous drawLABS DRAWN IN SAME HAND PAUSED IV. PT IS TO REMAIN FACE DOWN ONSTOMACH PER RN SO THAT IS THE ONLY PLACE WE CAN DRAW FROM RIGHT NOW. Performed By: #### 2 5508, 54595, 52213, 98191, 64101 #### [facility] [address] [place] [address], [facility] Bilirubin [Mass/Vol] 1.4 mg/dL High 0.3-1.0 [facility] Comment on above: Order Comment: No: D o not add to previous drawLABS DRAWN IN SAME HAND PAUSED IV. PT IS TO REMAIN FACE DOWN ONSTOMACH PER RN SO THAT IS THE ONLY PLACE WE CAN DRAW FROM RIGHT NOW. Performed By: #### 2 5508, 83838, 15414, 44311, 50264 #### [facility] [address] [place] [address], [facility] Calcium [Mass/Vol] 8.3 mg/dL Low 8.6-10.3 [facility] Comment on above: Order Comment: No: D o not add to previous drawLABS DRAWN IN SAME HAND PAUSED IV. PT IS TO REMAIN FACE DOWN ONSTOMACH PER RN SO THAT IS THE ONLY PLACE WE CAN DRAW FROM RIGHT NOW. Performed By: #### 2 5508, 95073, 99525, 90863, 33187 #### [facility] [address] [place] [address], [facility] Chloride [Moles/Vol] 105 mmol/L Normal 98-107 [facility] Comment on above: Order Comment: No: D o not add to previous drawLABS DRAWN IN SAME HAND PAUSED IV. PT IS TO REMAIN FACE DOWN ONSTOMACH PER RN SO THAT IS THE ONLY PLACE WE CAN DRAW FROM RIGHT NOW. Performed By: #### 2 5508, 43681, 47693, 15378, 96636 #### [facility] [address] [place] [address], [facility] CO2 [Moles/Vol] 20 mmol/L Low 21-31 [facility] Comment on above: Order Comment: No: D o not add to previous drawLABS DRAWN IN SAME HAND PAUSED IV. PT IS TO REMAIN FACE DOWN ONSTOMACH PER RN SO THAT IS THE ONLY PLACE WE CAN DRAW FROM RIGHT NOW. Performed By: #### 2 5508, 35286, 97659, 26140, 22204 #### [facility] [address] [facility] [place] [address], [facility] Creatinine [Mass/Vol] 0.91 mg/dL Normal 0.70-1.30 [facility] Comment on above: Order Comment: No: D o not add to previous drawLABS DRAWN IN SAME HAND PAUSED IV. PT IS TO REMAIN FACE DOWN ONSTOMACH PER RN SO THAT IS THE ONLY PLACE WE CAN DRAW FROM RIGHT NOW. Performed By: #### 2 5508, 70297, 53580, 19956, 76098 #### [facility] [address] [place] [address], [facility] GFR/1.73 sq M.predicted among blacks MDRD (S/P/Bld) [Vol rate/Area] mL/min/{1.73_m2} Normal >60 [facility] Comment on above: Order Comment: No: D o not add to previous drawLABS DRAWN IN SAME HAND PAUSED IV. PT IS TO REMAIN FACE DOWN ONSTOMACH PER RN SO THAT IS THE ONLY PLACE WE CAN DRAW FROM RIGHT NOW. Performed By: #### 2 5508, 65416, 11748, 82333, 33944 #### [facility] [address] [place] [address], [facility] GFR/1.73 sq M.predicted among non-blacks MDRD (S/P/Bld) [Vol rate/Area] mL/min/{1.73_m2} Normal >60 [facility] Comment on above: Order Comment: No: D o not add to previous drawLABS DRAWN IN SAME HAND PAUSED IV. PT IS TO REMAIN FACE DOWN ONSTOMACH PER RN SO THAT IS THE ONLY PLACE WE CAN DRAW FROM RIGHT NOW. Performed By: #### 2 5508, 89271, 38775, 63583, 15256 #### [facility] [address] [place] [address], [facility] Glucose [Mass/Vol] 153 mg/dL High 70-100 [facility] Comment on above: Order Comment: No: D o not add to previous drawLABS DRAWN IN SAME HAND PAUSED IV. PT IS TO REMAIN FACE DOWN ONSTOMACH PER RN SO THAT IS THE ONLY PLACE WE CAN DRAW FROM RIGHT NOW. Performed By: #### 2 5508, 78171, 03910, 46332, 60460 #### [facility] [address] [place] [address], [facility] Potassium [Moles/Vol] 4.7 mmol/L Normal 3.5-5.1 [facility] Comment on above: Order Comment: No: D o not add to previous drawLABS DRAWN IN SAME HAND PAUSED IV. PT IS TO REMAIN FACE DOWN ONSTOMACH PER RN SO THAT IS THE ONLY PLACE WE CAN DRAW FROM RIGHT NOW. Performed By: #### 2 5508, 44465, 01225, 44424, 84418 #### [facility] [address] [place] [address], [facility] Protein [Mass/Vol] 5.8 g/dL Low 6.0-8.3 [facility] Comment on above: Order Comment: No: D o not add to previous drawLABS DRAWN IN SAME HAND PAUSED IV. PT IS TO REMAIN FACE DOWN ONSTOMACH PER RN SO THAT IS THE ONLY PLACE WE CAN DRAW FROM RIGHT NOW. Performed By: #### 2 5508, 41496, 17402, 10507, 58919 #### [facility] [address] [place] [address], [facility] Sodium [Moles/Vol] 136 mmol/L Normal 136-145 [facility] Comment on above: Order Comment: No: D o not add to previous drawLABS DRAWN IN SAME HAND PAUSED IV. PT IS TO REMAIN FACE DOWN ONSTOMACH PER RN SO THAT IS THE ONLY PLACE WE CAN DRAW FROM RIGHT NOW. Performed By: #### 2 5508, 81529, 47796, 35694, 02560 #### [facility] [address] [facility] [address], [facility] Urea nitrogen [Mass/Vol] 28 mg/dL High 7-25 [facility] Comment on above: Order Comment: No: D o not add to previous drawLABS DRAWN IN SAME HAND PAUSED IV. PT IS TO REMAIN FACE DOWN ONSTOMACH PER RN SO THAT IS THE ONLY PLACE WE CAN DRAW FROM RIGHT NOW. Performed By: #### 2 5508, 40026, 81987, 70784, 14808 #### [facility] [address] [facility] [address], [facility] TACROLIMUSon 08-06-2020 Tacrolimus (Bld) [Mass/Vol] 9.2 ng/mL Normal 5.0-20.0 [facility] Comment on above: Order Comment: Unkno wnLABS DRAWN IN SAME HAND PAUSED IV. PT IS TO REMAIN FACE DOWN ONSTOMACH PER RN SO THAT IS THE ONLY PLACE WE CAN DRAW FROM RIGHT NOW. Result Comment: The [employer] Tacrolimus assay is a delayed one-step immunoassay for the quantitative determination of tacrolimus in human whole blood using the chemiluminescent microparticle immunoassay (CMIA) technology with flexible assay protocols, referred to as Chemiflex. Performed By: #### 2 5508, 80569, 46110, 79811, 66534 #### [facility] [address] [place] [address], [facility] TROPONIN-Ion 08-06-2020 Troponin I.cardiac [Mass/Vol] 42.94 ng/mL Critically high 0.00-0.04 [facility] Comment on above: Result Comment: M-OR EVIOUS CRITICAL RESULT REFERENCE RANGES: 0.00 - 0.04 ng/ml NORMAL 0.05 - 0.50 ng/ml INDETERMINATE > 0.50 ng/ml CONSISTENT WITH AN M.I. Performed By: #### 2 5508, 88373, 87407, 87656, 13736 #### [facility] [address] [place] [address], [facility] Troponin I.cardiac [Mass/Vol] 46.69 ng/mL Critically high 0.00-0.04 [facility] Comment on above: Order Comment: No: D o not add to previous draw Result Comment: M-OR EVIOUS CRITICAL RESULT REFERENCE RANGES: 0.00 - 0.04 ng/ml NORMAL 0.05 - 0.50 ng/ml INDETERMINATE > 0.50 ng/ml CONSISTENT WITH AN M.I. Performed By: #### 3 5200 ####[facility] [facility] UFH HEPARIN ASSAYon 08-07-19 UNFRACTIONATED HEPARIN 0.34 IU/mL Normal 0.30-0.70 [facility] Comment on above: Order Comment: No: D o not add to previous draw Result Comment: Beatrice roxaban and Apixaban will interfere with the anti Xa assay used to monitor UFH and LMWH. Performed By: #### 6 1405 #### [facility] [address] [place] [address], [facility] CHLORIDE URon 08-05-2020 Chloride [Moles/Vol] 26.0 mmol/L Normal [facility] Comment on above: Order Comment: Yes: Add to Previous draw if able Result Comment: Ther e are no established reference values for random urine specimens Performed By: #### 2 5508, 13856, 17417, 07867, 36030 #### [facility] [address] [place] [address], [facility] COMP METABOLIC PANELon 08-05 Albumin [Mass/Vol] 3.0 g/dL Low 3.5-5.7 [facility] Comment on above: Order Comment: Yes: Add to Previous draw if able Performed By: #### 2 5508, 19920, 63909, 38726, 20860 #### [facility] [address] [place] [address], [place] ALKALINE PHOSPH 78 IU/L Normal 34-104 [facility] Comment on above: Order Comment: Yes: Add to Previous draw if able Performed By: #### 2 5508, 67053, 14198, 24011, 58918 #### [facility] [address] [place] [address], [place] ALT [Catalytic activity/Vol] 35 U/L Normal 7-52 [facility] Comment on above: Order Comment: Yes: Add to Previous draw if able Performed By: #### 2 5508, 78991, 80335, 91424, 01560 #### [facility] [address] [place] [address], [place] AST [Catalytic activity/Vol] 54 U/L High 13-39 [facility] Comment on above: Order Comment: Yes: Add to Previous draw if able Performed By: #### 2 5508, 11094, 68492, 98915, 56660 #### [facility] [address] [place] [address], [place] Bilirubin [Mass/Vol] 1.0 mg/dL Normal 0.3-1.0 [facility] Comment on above: Order Comment: Yes: Add to Previous draw if able Performed By: #### 2 5508, 73718, 78148, 21720, 55094 #### [facility] [address] [place] [address], [place] Calcium [Mass/Vol] 8.2 mg/dL Low 8.6-10.3 [facility] Comment on above: Order Comment: Yes: Add to Previous draw if able Performed By: #### 2 5508, 81331, 24119, 48761, 31845 #### [facility] [address] [place] [address], [place] Chloride [Moles/Vol] 105 mmol/L Normal 98-107 [facility] Comment on above: Order Comment: Yes: Add to Previous draw if able Performed By: #### 2 5508, 39166, 65063, 36766, 40338 #### [facility] [address] [place] [address], [place] CO2 [Moles/Vol] 19 mmol/L Low 21-31 [facility] Comment on above: Order Comment: Yes: Add to Previous draw if able Performed By: #### 2 5508, 13157, 87659, 54971, 55547 #### [facility] [address] [place] [address], [place] Creatinine [Mass/Vol] 0.89 mg/dL Normal 0.70-1.30 [facility] Comment on above: Order Comment: Yes: Add to Previous draw if able Performed By: #### 2 5508, 26439, 77231, 40907, 27024 #### [facility] [address] [place] [address], [place] GFR/1.73 sq M.predicted among blacks MDRD (S/P/Bld) [Vol rate/Area] mL/min/{1.73_m2} Normal >60 [facility] Comment on above: Order Comment: Yes: Add to Previous draw if able Performed By: #### 2 5508, 57554, 42771, 31111, 76323 #### [facility] [address] [place] [address], [place] GFR/1.73 sq M.predicted among non-blacks MDRD (S/P/Bld) [Vol rate/Area] mL/min/{1.73_m2} Normal >60 [facility] Comment on above: Order Comment: Yes: Add to Previous draw if able Performed By: #### 2 5508, 99178, 22480, 24600, 08322 #### [facility] [address] [place] [address], [place] Glucose [Mass/Vol] 174 mg/dL High 70-100 [facility] Comment on above: Order Comment: Yes: Add to Previous draw if able Performed By: #### 2 5508, 66706, 65445, 39066, 96030 #### [facility] [address] [place] [address], [place] Potassium [Moles/Vol] 4.9 mmol/L Normal 3.5-5.1 [facility] Comment on above: Order Comment: Yes: Add to Previous draw if able Performed By: #### 2 5508, 40809, 95591, 70597, 75125 #### [facility] [address] [place] [address], [place] Protein [Mass/Vol] 5.5 g/dL Low 6.0-8.3 [facility] Comment on above: Order Comment: Yes: Add to Previous draw if able Performed By: #### 2 5508, 13642, 31087, 78576, 50187 #### [facility] [address] [place] [address], [place] Sodium [Moles/Vol] 136 mmol/L Normal 136-145 [facility] Comment on above: Order Comment: Yes: Add to Previous draw if able Performed By: #### 2 5508, 70110, 93394, 18447, 08722 #### [facility] [address] [place] [address], [place] Urea nitrogen [Mass/Vol] 35 mg/dL High 7-25 [facility] Comment on above: Order Comment: Yes: Add to Previous draw if able Performed By: #### 2 5508, 26236, 93392, 15981, 32025 #### [facility] [address] [place] [address], [place] LIVER BATTERYon 08-05-2020 Albumin [Mass/Vol] 3.2 g/dL Low 3.5-5.7 [facility] Comment on above: Performed By: #### 2 5508, 21240, 18313, 60824, 33417 #### [facility] [address] [place] [address], [facility] ALKALINE PHOSPH 84 IU/L Normal 34-104 [facility] Comment on above: Performed By: #### 2 5508, 56229, 68672, 93562, 67083 #### [facility] [address] [place] [address], [place] ALT [Catalytic activity/Vol] 40 U/L Normal 7-52 [facility] Comment on above: Performed By: #### 2 5508, 75678, 92718, 29746, 43673 #### [facility] [address] [place] [address], [place] AST [Catalytic activity/Vol] 36 U/L Normal 13-39 [facility] Comment on above: Performed By: #### 2 5508, 26464, 99082, 87794, 18823 #### [facility] [address] [place] [address], [place] Bilirubin [Mass/Vol] 0.9 mg/dL Normal 0.3-1.0 [facility] Comment on above: Performed By: #### 2 5508, 12955, 24644, 28215, 49603 #### [facility] [address] [place] [address], [place] Bilirubin.direct [Mass/Vol] 0.3 mg/dL High 0.0-0.2 [facility] Comment on above: Performed By: #### 2 5508, 14334, 90311, 88405, 73656 #### [facility] [address] [place] [address], [place] Protein [Mass/Vol] 5.9 g/dL Low 6.0-8.3 [facility] Comment on above: Performed By: #### 2 5508, 01195, 78858, 83051, 07159 #### [place] [address], [facility] PORTABLE CHEST 1 VIEWon 07-17 PORTABLE CHEST 1 VIEW [facility] Department of Radiology [address] [place] [id number] Patient Name: VISHAL DUKE : 1960 Sex: M Age: Race: White Pt. Location: [id number] Patient Status: I Ordered Date: 08/05/2020 1:35:00 AM Completed Date: 08/05/2020 01:53 AM Requesting Provider: KARLENE MARMOLEJO Attending Provider: YOJANA TRUJILLO Report Copy To: Signs & Symptoms: Chest Pain History: See Comments Comments: Evaluate for Infiltrates Exam: PORTABLE CHEST 1 VIEW PORTABLE CHEST 1 VIEW 08/05/2020 1:53 AM [...] infiltrates compatible with multifocal pneumonia. Approved by:Eladia Salinas/ 2:04 AM. I, Mauricio Koo,have reviewed the images and reports Electronically signed: Mauricio Koo. Transcribed by: [email or web address], User Resident: ELADIA CABRERA Electronically Signed by: MAURICIO KOO @ 08/05/2020 02:08 AM I personally read this/these film(s) with this resident Normal [facility] Comment on above: Order Comment: Yes: Add to Previous draw if able POTASSIUM URon 08-05-2020 Potassium [Moles/Vol] 61.0 mmol/L Normal [facility] Comment on above: Order Comment: Yes: Add to Previous draw if able Result Comment: Ther e are no established reference values for random urine specimens Performed By: #### 2 5508, 66278, 67998, 99641, 24759 #### [facility] [address] [facility]. [address] PROCALCITONINon 08-05-2020 PROCALCITONIN 0.54 ng/mL High 0.00-0.10 [facility] Comment on above: Order Comment: Yes: Add to Previous draw if able Result Comment: Susp ected Lower Respiratory Tract Infection: 0.1-0.25ng/mL- Low likelihood for bacterial infection;Antibiotics discouraged.* >0.25ng/mL- Increased likelihood bacterial infection;Antibiotics encouraged. ____ Suspected Sepsis: Strongly consider initiating antibiotics in all unstable patients. 0.1-0.5ng/mL- Low likelihood for sepsis; Antibiotics discouraged.* >0.5ng/mL- Increased likelihood sepsis; Antibiotics encouraged. >2.0ng/mL- High risk of sepsis/septic shock; Antibiotics strongly encouraged. *Recommend retesting PCT within 6-12hours if clinically indicated and initial PCT<0.5ng/mL Performed By: #### 2 5508, 26334, 71016, 64370, 30888 #### [facility] [address] SODIUM URINE RANDOMon 2020 Sodium (U) [Moles/Vol] 54 mmol/L Normal [facility] Comment on above: Order Comment: Yes: Add to Previous draw if able Result Comment: Ther e are no established reference values for random urine specimens Performed By: #### 2 5508, 92953, 48282, 04070, 64798 #### [facility] [address] [facility] TACROLIMUSon 08-05-2020 Tacrolimus (Bld) [Mass/Vol] 11.2 ng/mL Normal 5.0-20.0 [facility] Comment on above: Order Comment: Unkno wn Result Comment: The [employer] Tacrolimus assay is a delayed one-step immunoassay for the quantitative determination of tacrolimus in human whole blood using the chemiluminescent microparticle immunoassay (CMIA) technology with flexible assay protocols, referred to as Chemiflex. Performed By: #### 2 5508, 40164, 02588, 24951, 34428 #### [facility] [address] [place] [address], [facility] TROPONIN-Ion 08-05-2020 Troponin I.cardiac [Mass/Vol] 39.61 ng/mL Critically high 0.00-0.04 [facility] Comment on above: Order Comment: Yes: Add to Previous draw if able Result Comment: M-OR EVIOUS CRITICAL RESULT REFERENCE RANGES: 0.00 - 0.04 ng/ml NORMAL 0.05 - 0.50 ng/ml INDETERMINATE > 0.50 ng/ml CONSISTENT WITH AN M.I. Performed By: #### 2 5508, 36664, 85615, 93352, 74776 #### [facility] [address] [place] [address], [facility] Troponin I.cardiac [Mass/Vol] 36.67 ng/mL Critically high 0.00-0.04 [facility] Comment on above: Order Comment: No: D o not add to previous draw Result Comment: M-OR EVIOUS CRITICAL RESULT REFERENCE RANGES: 0.00 - 0.04 ng/ml NORMAL 0.05 - 0.50 ng/ml INDETERMINATE > 0.50 ng/ml CONSISTENT WITH AN M.I. Performed By: #### 2 5508, 38418, 78820, 58906, 02864 #### [facility] [address] [place] [address], [facility] Troponin I.cardiac [Mass/Vol] 2.03 ng/mL Critically high 0.00-0.04 [facility] Comment on above: Order Comment: Yes: Add to Previous draw if able Result Comment: M-TR OPONIN INITIAL CRITICAL HIGH; RESPUN AND RETESTED M-CRITICAL RESULT(S) REVIEWED, CALLED TO AND READ BACK BY ROSA M COTA RN AT 0902 REFERENCE RANGES: 0.00 - 0.04 ng/ml NORMAL 0.05 - 0.50 ng/ml INDETERMINATE > 0.50 ng/ml CONSISTENT WITH AN M.I. Performed By: #### 2 5508, 06268, 34485, 65533, 04067 #### [facility] [address] [place] [address], [facility] Troponin I.cardiac [Mass/Vol] 0.03 ng/mL Normal 0.00-0.04 [facility] Comment on above: Order Comment: Yes: Add to Previous draw if able Result Comment: REFE RENCE RANGES: 0.00 - 0.04 ng/ml NORMAL 0.05 - 0.50 ng/ml INDETERMINATE > 0.50 ng/ml CONSISTENT WITH AN M.I. Performed By: #### 2 5508, 09950, 48219, 63912, 08812 #### [facility] [address] [place] [place] [address], [facility] UFH HEPARIN ASSAYon 08-06-19 UNFRACTIONATED HEPARIN 0.37 IU/mL Normal 0.30-0.70 [facility] Comment on above: Result Comment: Beatrice roxaban and Apixaban will interfere with the anti Xa assay used to monitor UFH and LMWH. Performed By: #### 3 0477 ####[facility] UNFRACTIONATED HEPARIN 0.17 IU/mL Low 0.30-0.70 [facility] Comment on above: Result Comment: Gabby roxaban and Apixaban will interfere with the anti Xa assay used to monitor UFH and LMWH. Performed By: #### 6 1405 #### [facility] [address] COMP METABOLIC PANELon 08-04 Albumin [Mass/Vol] 3.1 g/dL Low 3.5-5.7 [facility] Comment on above: Order Comment: Yes: Add to Previous draw if able Performed By: #### 2 5508, 30569, 54656, 13682, 58205 #### [facility] [address] [place] [address], [facility] ALKALINE PHOSPH 86 IU/L Normal 34-104 [facility] Comment on above: Order Comment: Yes: Add to Previous draw if able Performed By: #### 2 5508, 96989, 88699, 11175, 87345 #### [facility] [address] [place] [id number], [facility] ALT [Catalytic activity/Vol] 47 U/L Normal 7-52 [facility] Comment on above: Order Comment: Yes: Add to Previous draw if able Performed By: #### 2 5508, 56696, 56420, 22846, 47455 #### [facility] [address] [place] [id number], [place] AST [Catalytic activity/Vol] 45 U/L High 13-39 [facility] Comment on above: Order Comment: Yes: Add to Previous draw if able Performed By: #### 2 5508, 30909, 49311, 76666, 72728 #### [facility] [address] [place] [address], [place] Bilirubin [Mass/Vol] 0.5 mg/dL Normal 0.3-1.0 [facility] Comment on above: Order Comment: Yes: Add to Previous draw if able Performed By: #### 2 5508, 96884, 73908, 25049, 22719 #### [facility] [address] [place] [address], [place] Calcium [Mass/Vol] 8.4 mg/dL Low 8.6-10.3 [facility] Comment on above: Order Comment: Yes: Add to Previous draw if able Performed By: #### 2 5508, 83939, 28981, 15499, 08410 #### [facility] [address] [place] [address], [place] Chloride [Moles/Vol] 102 mmol/L Normal 98-107 [facility] Comment on above: Order Comment: Yes: Add to Previous draw if able Performed By: #### 2 5508, 36899, 97406, 90395, 38197 #### [facility] [address] [place] [address], [place] CO2 [Moles/Vol] 24 mmol/L Normal 21-31 [facility] Comment on above: Order Comment: Yes: Add to Previous draw if able Performed By: #### 2 5508, 46037, 82013, 59780, 29886 #### [facility] [address] [place] [address], [place] Creatinine [Mass/Vol] 1.04 mg/dL Normal 0.70-1.30 [facility] Comment on above: Order Comment: Yes: Add to Previous draw if able Performed By: #### 2 5508, 97192, 00191, 06103, 31145 #### [facility] [address] [place] [address], [place] GFR/1.73 sq M.predicted among blacks MDRD (S/P/Bld) [Vol rate/Area] mL/min/{1.73_m2} Normal >60 [facility] Comment on above: Order Comment: Yes: Add to Previous draw if able Performed By: #### 2 5508, 93068, 07134, 79479, 21071 #### [facility] [address] [place] [address], [place] GFR/1.73 sq M.predicted among non-blacks MDRD (S/P/Bld) [Vol rate/Area] mL/min/{1.73_m2} Normal >60 [facility] Comment on above: Order Comment: Yes: Add to Previous draw if able Performed By: #### 2 5508, 53061, 80281, 04940, 53522 #### [facility] [address] [place] [address], [place] Glucose [Mass/Vol] 196 mg/dL High 70-100 [facility] Comment on above: Order Comment: Yes: Add to Previous draw if able Performed By: #### 2 5508, 13496, 49200, 27091, 01144 #### [facility] [address] [place] [address], [place] Potassium [Moles/Vol] 4.6 mmol/L Normal 3.5-5.1 [facility] Comment on above: Order Comment: Yes: Add to Previous draw if able Performed By: #### 2 5508, 92765, 23952, 50184, 11495 #### [facility] [address] [place] [address], [place] Protein [Mass/Vol] 5.8 g/dL Low 6.0-8.3 [facility] Comment on above: Order Comment: Yes: Add to Previous draw if able Performed By: #### 2 5508, 99888, 03319, 27841, 69257 #### [facility] [address] [place] [address], [place] Sodium [Moles/Vol] 135 mmol/L Low 136-145 [facility] Comment on above: Order Comment: Yes: Add to Previous draw if able Performed By: #### 2 5508, 34942, 60776, 30741, 87358 #### [facility] [address] Urea nitrogen [Mass/Vol] 38 mg/dL High 7-25 [facility] Comment on above: Order Comment: Yes: Add to Previous draw if able Performed By: #### 2 5508, 06215, 54608, 88469, 38942 #### [facility] [address] [facility] CPKon 08-04-2020 CK [Catalytic activity/Vol] 80 U/L Normal 30-223 [facility] Comment on above: Performed By: #### 2 5508, 23833, 35751, 78247, 27360 #### [facility] [address] [facility] [address], [facility] LDH BLOODon 08-04-2020 LDH 569 Units/L High 140-271 [facility] Comment on above: Performed By: #### 2 5508, 42584, 42096, 51117, 08978 #### [facility] [address] [facility] [address], [facility] MAGNESIUM BLOODon 08-04-2020 Magnesium [Mass/Vol] 2.3 mg/dL Normal 1.9-2.7 [facility] Comment on above: Performed By: #### 2 5508, 93551, 13081, 51545, 86226 #### [facility] [address] [facility] [address], [facility] TACROLIMUSon 08-04-2020 Tacrolimus (Bld) [Mass/Vol] 17.4 ng/mL Normal 5.0-20.0 [facility] Comment on above: Order Comment: Yes: Add to Previous draw if able Result Comment: The [employer] Tacrolimus assay is a delayed one-step immunoassay for the quantitative determination of tacrolimus in human whole blood using the chemiluminescent microparticle immunoassay (CMIA) technology with flexible assay protocols, referred to as Chemiflex. Performed By: #### 2 5508, 09093, 86493, 62943, 36157 #### [facility] [address] [facility]. [address] TROPONIN-Ion 08-04-2020 Troponin I.cardiac [Mass/Vol] 0.01 ng/mL Normal 0.00-0.04 [facility] Comment on above: Result Comment: REFE RENCE RANGES: 0.00 - 0.04 ng/ml NORMAL 0.05 - 0.50 ng/ml INDETERMINATE > 0.50 ng/ml CONSISTENT WITH AN M.I. Performed By: #### 2 5508, 16510, 22038, 20721, 23285 #### [facility] [address] *SARS-CoV-2 COVID-19on 08-03 SARS-CoV-2 (COVID-19) RNA ADELINE+probe Ql (Unsp spec) Detected Critically abnormal Not Detected [facility] Comment on above: Result Comment: Call ed Lara Reid on 08-03 at 1020. Performed By: #### 2 5508, 31390, 11067, 83073, 57709 #### [facility] [address] BASIC METABOLIC PANELon - Calcium [Mass/Vol] 8.4 mg/dL Low 8.6-10.3 [facility] Comment on above: Order Comment: No: D o not add to previous draw Pt in bath room askme to come back Performed By: #### 3 5200 #### [facility] [address] [facility]. [address] Chloride [Moles/Vol] 97 mmol/L Low 98-107 [facility] Comment on above: Order Comment: No: D o not add to previous draw Pt in bath room askme to come back Performed By: #### 3 5200 #### [facility] [address] [place] [address], [facility] CO2 [Moles/Vol] 22 mmol/L Normal 21-31 [facility] Comment on above: Order Comment: No: D o not add to previous draw Pt in bath room askme to come back Performed By: #### 3 5200 #### [facility] [address] [place] [address], [place] Creatinine [Mass/Vol] 0.90 mg/dL Normal 0.70-1.30 [facility] Comment on above: Order Comment: No: D o not add to previous draw Pt in bath room askme to come back Performed By: #### 3 5200 #### [facility] [address] [place] [address], [facility] GFR/1.73 sq M.predicted among blacks MDRD (S/P/Bld) [Vol rate/Area] mL/min/{1.73_m2} Normal >60 [facility] Comment on above: Order Comment: No: D o not add to previous draw Pt in bath room askme to come back Performed By: #### 3 5200 #### [facility] [address] [place] [address], [facility] GFR/1.73 sq M.predicted among non-blacks MDRD (S/P/Bld) [Vol rate/Area] mL/min/{1.73_m2} Normal >60 [facility] Comment on above: Order Comment: No: D o not add to previous draw Pt in bath room askme to come back Performed By: #### 3 5200 #### [facility] [address] [place] [address], [place] Glucose [Mass/Vol] 167 mg/dL High 70-100 [facility] Comment on above: Order Comment: No: D o not add to previous draw Pt in bath room askme to come back Performed By: #### 3 5200 #### [facility] [address] [place] [address], [place] Potassium [Moles/Vol] 4.4 mmol/L Normal 3.5-5.1 [facility] Comment on above: Order Comment: No: D o not add to previous draw Pt in bath room askme to come back Performed By: #### 3 5200 #### [facility] [address] [facility]. [address] Sodium [Moles/Vol] 131 mmol/L Low 136-145 [facility] Comment on above: Order Comment: No: D o not add to previous draw Pt in bath room askme to come back Performed By: #### 3 5200 #### [facility] [address] Urea nitrogen [Mass/Vol] 22 mg/dL Normal 7-25 [facility] Comment on above: Order Comment: No: D o not add to previous draw Pt in bath room askme to come back Performed By: #### 3 5200 #### [facility] [address] [facility]. [address] CBC W/DIFFon 08-03-2020 ABS IMM GRANS 0.1 10*3/uL Normal 0.0-0.2 [facility] Comment on above: Order Comment: No: D o not add to previous draw Performed By: #### 6 1405 #### [facility] [address] ABS NEUTROPHILS 4.8 10*3/uL Normal 1.6-7.6 [facility] Comment on above: Order Comment: No: D o not add to previous draw Performed By: #### 6 1405 #### [facility] [address] [facility] [place] [address], [facility] Basophils (Bld) [#/Vol] 0.0 10*3/uL Normal 0.0-0.2 [facility] Comment on above: Order Comment: No: D o not add to previous draw Performed By: #### 6 1405 #### [facility] [address] [place] [address], [facility] Basophils/100 WBC (Bld) 0.4 % Normal 0.0-1.0 [facility] Comment on above: Order Comment: No: D o not add to previous draw Performed By: #### 6 1405 #### [facility] [address] [place] [address], [facility] Eosinophils (Bld) [#/Vol] 0.0 10*3/uL Normal 0.0-0.5 [facility] Comment on above: Order Comment: No: D o not add to previous draw Performed By: #### 6 1405 #### [facility] [address] [place] [address], [facility] Eosinophils/100 WBC (Bld) 0.0 % Normal 0.0-6.0 [facility] Comment on above: Order Comment: No: D o not add to previous draw Performed By: #### 6 1405 #### [facility] [address] [place] [address], [facility] Erythrocyte distribution width (RBC) [Ratio] 13.6 % Normal 11.5-15.0 [facility] Comment on above: Order Comment: No: D o not add to previous draw Performed By: #### 6 1405 #### [facility] [address] [place] [address], [facility] Hematocrit (Bld) [Volume fraction] 45.6 % Normal 39.0-50.0 [facility] Comment on above: Order Comment: No: D o not add to previous draw Performed By: #### 6 1405 #### [facility] [address] [place] [address], [facility] Hemoglobin (Bld) [Mass/Vol] 15.9 g/dL Normal 13.0-17.0 [facility] Comment on above: Order Comment: No: D o not add to previous draw Performed By: #### 6 1405 #### [facility] [address] IMMATURE GRANS 0.9 % Normal 0.0-1.0 [facility] Comment on above: Order Comment: No: D o not add to previous draw Performed By: #### 6 1405 #### [facility] [address] [place] [address], [facility] Lymphocytes (Bld) [#/Vol] 0.4 10*3/uL Low 1.2-4.0 [facility] Comment on above: Order Comment: No: D o not add to previous draw Performed By: #### 6 1405 #### [facility] [address] Lymphocytes/100 WBC (Bld) 7.1 % Low 20.0-45.0 [facility] Comment on above: Order Comment: No: D o not add to previous draw Performed By: #### 6 1405 #### [facility] [address] MCH (RBC) [Entitic mass] 29.5 pg Normal 27.0-33.0 [facility] Comment on above: Order Comment: No: D o not add to previous draw Performed By: #### 6 1405 #### [facility] [address] [place] [address], [facility] MCHC (RBC) [Mass/Vol] 34.9 g/dL Normal 32.0-35.0 [facility] Comment on above: Order Comment: No: D o not add to previous draw Performed By: #### 6 1405 #### [facility] [address] [place] [address], [facility] MCV (RBC) [Entitic vol] 84.6 fL Normal 82.0-98.0 [facility] Comment on above: Order Comment: No: D o not add to previous draw Performed By: #### 6 1405 #### [facility] [address] [place] [address], [facility] Monocytes (Bld) [#/Vol] 0.2 10*3/uL Normal 0.1-1.0 [facility] Comment on above: Order Comment: No: D o not add to previous draw Performed By: #### 6 1405 #### [facility] [address] [place] [address], [place] MONOS 4.2 % Low 5.0-12.0 [facility] Comment on above: Order Comment: No: D o not add to previous draw Performed By: #### 6 1405 #### [facility] [address] [place] [address], [place] Neutrophils/100 WBC (Bld) 87.4 % High 40.0-72.0 [facility] Comment on above: Order Comment: No: D o not add to previous draw Performed By: #### 6 1405 #### [facility] [address] [place] [address], [facility] Nucleated RBC/100 WBC (Bld) [Ratio] 0 % Normal 0-0 [facility] Comment on above: Order Comment: No: D o not add to previous draw Performed By: #### 6 1405 #### [facility] [address] [place] [address], [place] PLAT CNT 286 10*3/uL Normal 150-400 [facility] Comment on above: Order Comment: No: D o not add to previous draw Performed By: #### 6 1405 #### [facility] [address] [place] [address], [place] RBC (Bld) [#/Vol] 5.39 10*6/uL Normal 4.20-5.70 [facility] Comment on above: Order Comment: No: D o not add to previous draw Performed By: #### 6 1405 #### [facility] [address] [place] [address], [place] WBC (Bld) [#/Vol] 5.47 10*3/uL Normal 4.00-10.60 [facility] Comment on above: Order Comment: No: D o not add to previous draw Performed By: #### 6 1405 #### [facility] [address] [place] [address], [facility] CPKon 08-03-2020 CK [Catalytic activity/Vol] 168 U/L Normal 30-223 [facility] Comment on above: Order Comment: No: D o not add to previous draw Pt in bath room askme to come back Performed By: #### 3 5200 #### [facility] [address] D DIMER TESTon 08-03-2020 D-DIMER TEST 5.09 mcg/mL FEU High 0.27-0.49 [facility] Comment on above: Order Comment: No: [...] AND CONFIRMED Performed By: #### 5 3629 ####[facility] [facility] [address], [facility] FERRITINon 08-03-2020 Ferritin [Mass/Vol] 1079 ng/mL High 24-336 [facility] Comment on above: Order Comment: No: D o not add to previous draw Pt in bath room askme to come back Performed By: #### 3 5200 #### [facility] [address] [place] [address], [facility] LDH BLOODon 08-03-2020 LDH 623 Units/L High 140-271 [facility] Comment on above: Order Comment: No: D o not add to previous draw Pt in bath room askme to come back Performed By: #### 3 5200 #### [facility] [address] [place] [address], [facility] LIVER BATTERYon 08-03-2020 Albumin [Mass/Vol] 3.6 g/dL Normal 3.5-5.7 [facility] Comment on above: Order Comment: Yes: Add to Previous draw if able Performed By: #### 2 5508, 56325, 70834, 90992, 86985 #### [facility] [address] [place] [address], [facility] ALKALINE PHOSPH 91 IU/L Normal 34-104 [facility] Comment on above: Order Comment: Yes: Add to Previous draw if able Performed By: #### 2 5508, 04961, 05276, 03446, 01678 #### [facility] [address] [place] [address], [place] ALT [Catalytic activity/Vol] 34 U/L Normal 7-52 [facility] Comment on above: Order Comment: Yes: Add to Previous draw if able Performed By: #### 2 5508, 31224, 67965, 50912, 55887 #### [facility] [address] [place] [address], [place] AST [Catalytic activity/Vol] 40 U/L High 13-39 [facility] Comment on above: Order Comment: Yes: Add to Previous draw if able Performed By: #### 2 5508, 21890, 59078, 08937, 05776 #### [facility] [address] [place] [id number], [place] Bilirubin [Mass/Vol] 0.7 mg/dL Normal 0.3-1.0 [facility] Comment on above: Order Comment: Yes: Add to Previous draw if able Performed By: #### 2 5508, 47610, 69498, 94133, 37247 #### [facility] [address] [place] [address], [place] Bilirubin.direct [Mass/Vol] 0.1 mg/dL Normal 0.0-0.2 [facility] Comment on above: Order Comment: Yes: Add to Previous draw if able Performed By: #### 2 5508, 46421, 55428, 12700, 82996 #### [facility] [address] [facility] [place] [address], [facility] Protein [Mass/Vol] 6.3 g/dL Normal 6.0-8.3 [facility] Comment on above: Order Comment: Yes: Add to Previous draw if able Performed By: #### 2 5508, 96670, 81681, 31754, 36914 #### [facility] [address] [facility] [place] [address], [facility] MAGNESIUM BLOODon 08-03-2020 Magnesium [Mass/Vol] 2.3 mg/dL Normal 1.9-2.7 [facility] Comment on above: Order Comment: No: D o not add to previous draw Pt in bath room askme to come back Performed By: #### 3 5200 #### [facility] [address] [facility] [place] [address], [facility] PHOSPHORUS BLOODon Phosphate [Mass/Vol] 3.6 mg/dL Normal 2.5-5.0 [facility] Comment on above: Order Comment: No: D o not add to previous draw Pt in bath room askme to come back Performed By: #### 3 5200 #### [facility] [address] [place] [address], [facility] PORTABLE CHEST 1 VIEWon 07-16 PORTABLE CHEST 1 VIEW [facility] Department of Radiology [address] [place] [id number] Patient Name: VISHAL DUKE : 1960 Sex: M Age: Race: White Pt. Location: [id number] Patient Status: I Ordered Date: 08/03/2020 8:00:00 AM Completed Date: 08/03/2020 07:32 AM Requesting Provider: WILLARD DIMAS Attending Provider: PHANI SAPP Report Copy To: Signs & Symptoms: Shortness of Breath History: Comments: evaluate for Pneumonia Exam: PORTABLE CHEST 1 VIEW PORTABLE CHEST 1 VIEW 08/03/2020 7:32 AM [...] pneumonia. Electronically signed: Dariela Vincent. Transcribed by: [email or web address], User Resident: Electronically Signed by: DARIELA VINCENT @ 08/03/2020 07:52 AM Normal [facility] Comment on above: Order Comment: No: D o not add to previous draw CV'D BY [facility] AT 1240 PROCALCITONINon 08-03-2020 PROCALCITONIN 0.31 ng/mL High 0.00-0.10 [facility] Comment on above: Order Comment: No: D o not add to previous draw Result Comment: Susp ected Lower Respiratory Tract Infection: 0.1-0.25ng/mL- Low likelihood for bacterial infection;Antibiotics discouraged.* >0.25ng/mL- Increased likelihood bacterial infection;Antibiotics encouraged. ____ Suspected Sepsis: Strongly consider initiating antibiotics in all unstable patients. 0.1-0.5ng/mL- Low likelihood for sepsis; Antibiotics discouraged.* >0.5ng/mL- Increased likelihood sepsis; Antibiotics encouraged. >2.0ng/mL- High risk of sepsis/septic shock; Antibiotics strongly encouraged. *Recommend retesting PCT within 6-12hours if clinically indicated and initial PCT<0.5ng/mL Performed By: #### 2 5508, 46961, 16200, 14847, 27291 #### [facility] [address] [facility]. [address] TACROLIMUSon 08-03-2020 Tacrolimus (Bld) [Mass/Vol] 24.9 ng/mL High 5.0-20.0 [facility] Comment on above: Order Comment: Yes: Add to Previous draw if able Result Comment: The [employer] Tacrolimus assay is a delayed one-step immunoassay for the quantitative determination of tacrolimus in human whole blood using the chemiluminescent microparticle immunoassay (CMIA) technology with flexible assay protocols, referred to as Chemiflex. Performed By: #### 2 5508, 66610, 92992, 07510, 21407 #### [facility] [address] [facility] TROPONIN-Ion 08-03-2020 Troponin I.cardiac [Mass/Vol] 0.01 ng/mL Normal 0.00-0.04 [facility] Comment on above: Order Comment: No: D o not add to previous draw Pt in bath room askme to come back Result Comment: REFE RENCE RANGES: 0.00 - 0.04 ng/ml NORMAL 0.05 - 0.50 ng/ml INDETERMINATE > 0.50 ng/ml CONSISTENT WITH AN M.I. Performed By: #### 3 5200 #### [facility] [address] [place] [address], [place] URINALYSIS REFLEXon 08-04-19 21 Appearance (U) CLEAR Normal CLEAR [facility] Comment on above: Order Comment: No: D o not add to previous draw CV'D BY [facility]MM [facility] AT 1240 Performed By: #### 6 1405 #### [facility] [address] [place] [address], [place] Bilirubin Ql (U) Negative Normal NEGATIVE [facility] Comment on above: Order Comment: No: D o not add to previous draw CV'D BY IMM [facility] AT 1240 Performed By: #### 6 1405 #### [facility] [address] [place] [address], [place] Color (U) YELLOW Normal YELLOW [facility] Comment on above: Order Comment: No: D o not add to previous draw CV'D BY [facility] AT 1240 Performed By: #### 6 1405 #### [facility] [address] [place] [address], [place] EPIS NONE SEEN Normal FEW,OCC,NON E SEEN [facility] Comment on above: Order Comment: No: D o not add to previous draw CV'D BY [facility] AT 1240 Performed By: #### 6 1405 #### [facility] [address] [place] [address], [place] Glucose Ql (U) Negative Normal NEGATIVE [facility] Comment on above: Order Comment: No: D o not add to previous draw CV'D BY [facility] AT 1240 Performed By: #### 6 1405 #### [facility] [address] [place] [address], [place] Hemoglobin Ql (U) TRACE, RESULTS CHECKED Abnormal NEGATI VE [facility] Comment on above: Order Comment: No: D o not add to previous draw CV'D BY [facility] AT 1240 Performed By: #### 6 1405 #### [facility] [address] [place] [address], [place] KETONE Negative Normal NEGATIVE [facility] Comment on above: Order Comment: No: D o not add to previous draw CV'D BY [facility] AT 1240 Performed By: #### 6 1405 #### [facility] [address] [place] [address], [place] LEUK MARIA A Negative Normal NEGATIVE [facility] Comment on above: Order Comment: No: D o not add to previous draw CV'D BY IMM [facility] AT [facility] Performed By: #### 6 1405 #### [facility] [address] [place] [address], [place] Nitrite Ql (U) Negative Normal NEGATIVE [facility] Comment on above: Order Comment: No: D o not add to previous draw CV'D BY IMM [facility] AT [facility] Performed By: #### 6 1405 #### [facility] [address] [place] [address], [place] pH (U) 6.0 [pH] Normal 5.0-8.0 [facility] Comment on above: Order Comment: No: D o not add to previous draw CV'D BY I[facility] AT [facility] Performed By: #### 6 1405 #### [facility] [address] [place] [address], [place] Protein Ql (U) Negative Normal NEGATIVE [facility] Comment on above: Order Comment: No: D o not add to previous draw CV'D BY IMM [facility] AT [facility] Performed By: #### 6 1405 #### [facility] [address] [place] [address], [place] RBC 3-5 Abnormal NONE SEEN [facility] Comment on above: Order Comment: No: D o not add to previous draw CV'D BY IMM [facility] AT [facility] Performed By: #### 6 1405 #### [facility] [address] [place] [address], [place] SPEC GRAV 1.017 Normal 1.015-1.020 [facility] [place] [facility] Comment on above: Order Comment: No: D o not add to previous draw CV'D BY [facility] AT 1240 Performed By: #### 6 1405 #### [facility] [address] [place] [address], [facility] WBC UA 0-2 Abnormal NONE SEEN [facility] Comment on above: Order Comment: No: D o not add to previous draw CV'D BY [facility] AT 1240 Performed By: #### 6 1405 #### [facility] [address] [place] [address], [facility] Vital Signs Date Time Vital Sign Value Performing Clinician Facility 03-21-2024 15:17-0500 Body height 180.3 cm Rosa M Gonzales MD Work Phone: [facility] 03-21-2024 15:17-0500 Body mass index (BMI) [Ratio] 28.28 kg/m2 Rosa M Gonzales MD Work Phone: [facility] 03-21-2024 15:17-0500 Body weight 91.99 kg Rosa M Gonzales MD Work Phone: [facility] 03-21-2024 15:17-0500 Diastolic blood pressure 72 mm[Hg] Rosa M Gonzales MD Work Phone: [facility] 03-21-2024 15:17-0500 Heart rate 72 /min Rosa M Gonzales MD Work Phone: [facility] 03-21-2024 15:17-0500 SaO2% (BldA) [Mass fraction] 92 % Rosa M Gonzales MD Work Phone: [facility] 03-21-2024 15:17-0500 Systolic blood pressure 112 mm[Hg] Rosa M Gonzales MD Work Phone: [facility] 03-04-2024 13:54-0500 Blood Pressure Location Reji BROWER [facility] 03-04-2024 13:54-0500 Body temperature 98.6 [degF] Reji BROWER [facility] 03-04-2024 13:54-0500 Diastolic blood pressure 75 mm[Hg] Reji BROWER [facility] 03-04-2024 13:54-0500 Heart rate 67 /min Reji BROWER [facility] 03-04-2024 13:54-0500 Respiratory rate 18 /min Reji BROWER [facility] 03-04-2024 13:54-0500 Systolic blood pressure 119 mm[Hg] Reji BROWER [facility] 01-29-2024 15:10-0400 Body height 180.3 cm Nicki Agustin CONDEMNATION ENGINEER Work Phone: [facility] 01-29-2024 15:10-0400 Body mass index (BMI) [Ratio] 27.89 kg/m2 Nicki Agustin CONDEMNATION ENGINEER Work Phone: [facility] 01-29-2024 15:10-0400 Body weight 90.72 kg Nicki Agustin CONDEMNATION ENGINEER Work Phone: [facility] 01-29-2024 15:10-0400 Diastolic blood pressure 64 mm[Hg] Nicki Agustin CONDEMNATION ENGINEER Work Phone: [facility] 01-29-2024 15:10-0400 Heart rate 56 /min Nicki Agustin CONDEMNATION ENGINEER Work Phone: [facility] 01-29-2024 15:10-0400 SaO2% (BldA) [Mass fraction] 95 % Nicki Agustin CONDEMNATION ENGINEER Work Phone: [facility] 01-29-2024 15:10-0400 Systolic blood pressure 124 mm[Hg] Nicki Velez CONDEMNATION ENGINEER Work Phone: [facility] 01-26-2024 12:00-0400 Body height 180.3 cm Nicki Velez CONDEMNATION ENGINEER Work Phone: [facility] 01-26-2024 12:00-0400 Body mass index (BMI) [Ratio] 27.89 kg/m2 Nicki Velez CONDEMNATION ENGINEER Work Phone: [facility] 01-26-2024 12:00-0400 Body weight 90.72 kg Nicki Velez CONDEMNATION ENGINEER Work Phone: [facility] 01-26-2024 12:00-0400 Diastolic blood pressure 70 mm[Hg] Nicki Velez CONDEMNATION ENGINEER Work Phone: [facility] 01-26-2024 12:00-0400 Heart rate 69 /min Nicki Velez CONDEMNATION ENGINEER Work Phone: [facility] 01-26-2024 12:00-0400 SaO2% (BldA) [Mass fraction] 97 % Nicki Velez CONDEMNATION ENGINEER Work Phone: [facility] 01-26-2024 12:00-0400 Systolic blood pressure 120 mm[Hg] Nicki Velez CONDEMNATION ENGINEER Work Phone: [facility] 01-11-2024 10:35-0400 Diastolic blood pressure 75 mm[Hg] Schmidt [facility] 01-11-2024 10:35-0400 Heart rate 60 /min Schmidt [facility] 01-11-2024 10:35-0400 Mean blood pressure 88 mm[Hg] Schmidt [facility] 01-11-2024 10:35-0400 Respiratory rate 18 /min Schmidt [facility] 01-11-2024 10:35-0400 SaO2% (BldA) [Mass fraction] 93 % Schmidt [facility] 01-11-2024 10:35-0400 Systolic blood pressure 114 mm[Hg] Schmidt [facility] 01-11-2024 10:25-0400 Diastolic blood pressure 64 mm[Hg] Schmidt [facility] 01-11-2024 10:25-0400 Heart rate 70 /min Schmidt Sar[facility] 01-11-2024 10:25-0400 Mean blood pressure 79 mm[Hg] Schmidt [facility] 01-11-2024 10:25-0400 Respiratory rate 20 /min Schmidt [facility] 01-11-2024 10:25-0400 SaO2% (BldA) [Mass fraction] 94 % Schmidt [facility] 01-11-2024 10:25-0400 Systolic blood pressure 110 mm[Hg] Schmidt [facility] 01-11-2024 10:10-0400 Body temperature 97.7 [degF] [facility] 01-11-2024 10:10-0400 Diastolic blood pressure 59 mm[Hg] [facility] 01-11-2024 10:10-0400 Heart rate 70 /min [facility] 01-11-2024 10:10-0400 Mean blood pressure 71 mm[Hg] Schmidt [facility] 01-11-2024 10:10-0400 Respiratory rate 19 /min Schmidt [facility] 01-11-2024 10:10-0400 SaO2% (BldA) [Mass fraction] 95 % [facility] 01-11-2024 10:10-0400 Systolic blood pressure 96 mm[Hg] [facility] 01-11-2024 10:05-0400 Respiratory rate 22 /min Schmidt [facility] 01-11-2024 09:55-0400 Respiratory rate 22 /min Schmidt [facility] 01-11-2024 08:46-0400 Blood Pressure Location [facility] 01-11-2024 08:46-0400 Body temperature 97.52 [degF] [facility] 12-25-2023 09:28-0400 Diastolic blood pressure 88 mm[Hg] Schmidt Sarmini [facility] 12-25-2023 09:28-0400 Mean blood pressure 107 mm[Hg] Schmidt Sarmini [facility] 12-25-2023 09:28-0400 Systolic blood pressure 146 mm[Hg] Schmidt Sarmini [facility] 12-25-2023 09:14-0400 Blood Pressure Location Schmidt Sarmini [facility] 12-25-2023 09:14-0400 Diastolic blood pressure 85 mm[Hg] Schmidt Sarmini [facility] 12-25-2023 09:14-0400 Heart rate 60 /min Xochilt Olmsteadmini [facility] 12-25-2023 09:14-0400 Systolic blood pressure 152 mm[Hg] Schmidt Ishanmini [facility] 01-17-2022 11:53-0400 Blood Pressure Location Reji BROWER [facility] 01-17-2022 11:53-0400 Diastolic blood pressure 81 mm[Hg] Reji BROWER [facility] 01-17-2022 11:53-0400 Heart rate 63 /min Reji BROWER [facility] 01-17-2022 11:53-0400 Respiratory rate 18 /min Reji BROWER [facility] 01-17-2022 11:53-0400 Systolic blood pressure 129 mm[Hg] Reji BROWER [facility] 04-23-2021 17:40-0500 Diastolic blood pressure 70 mm[Hg] Rosa M Gonzales Work Phone: [facility] 250 DO Work Phone: 04-23-2021 17:40-0500 Systolic blood pressure 138 mm[Hg] Rosa M Gonzales Work Phone: [facility] 250 DO Work Phone: 04-23-2021 15:22-0500 Body height 180.34 cm Rosa M Gonzales Work Phone: [facility] 250 DO Work Phone: 04-23-2021 15:22-0500 Body mass index (BMI) [Ratio] 29.57 kg/m2 Rosa M Gonzales Work Phone: [facility] 250 DO Work Phone: 04-23-2021 15:22-0500 Body surface area Derived from formula 2.16 m2 Rosa M Gonzales Work Phone: [facility] 250 DO Work Phone: 04-23-2021 15:22-0500 Body weight 96.16 kg Rosa M Gonzales Work Phone: [facility] 250 DO Work Phone: 04-23-2021 15:22-0500 Diastolic blood pressure 77 mm[Hg] Rosa M Gonzales Work Phone: [facility] 250 DO Work Phone: 04-23-2021 15:22-0500 Heart rate 61 /min Rosa M Gonzales Work Phone: [facility] 250 DO Work Phone: 04-23-2021 15:22-0500 Systolic blood pressure 142 mm[Hg] Rosa M Gonzales Work Phone: [facility] 250 DO Work Phone: Encounters Encounter Date Encounter Type Care Provider Facility Start: 03-21-2024 End: 03-21-2024 Office outpatient visit 15 minutes Rosa M Gonzales MD Work Phone: [facility] Comment on above: Herpes zoster withou t complication (Primary Dx); Elevated fasting glucose Start: 03-21-2024 End: 03-21-2024 Bamboo flowsheet Rosa M Gonzales MD Work Phone: [facility] Start: 03-21-2024 End: 03-21-2024 Bamboo flowsheet Rosa M Gonzales MD Work Phone: [facility] Start: 03-18-2024 End: 03-18-2024 ambulatory [address] [facility] Start: 03-05-2024 End: 03-05-2024 Clinisync Result Encounter Generic External Data Provider [facility] Unsolicited Start: 03-05-2024 End: 03-05-2024 Clinisync Result Encounter Generic External Data Provider [facility] Unsolicited Start: 03-04-2024 End: 03-04-2024 ambulatory Reji BROWER Facility:[facility] Start: 03-04-2024 End: 03-04-2024 Patient encounter procedure Reji BROWER [facility] Start: 02-01-2024 End: 02-01-2024 Clinisync Result Encounter Generic External Data Provider [facility] Unsolicited Start: 02-01-2024 End: 02-01-2024 Clinisync Result Encounter Generic External Data Provider [facility] Unsolicited Start: 01-29-2024 End: 01-29-2024 Office outpatient visit 15 minutes Nicki Velez NP Work Phone: [facility] Comment on above: Herpes zoster with c omplication (Primary Dx); Type 2 diabetes mellitus without complications (CMS/HCC); Immunodeficiency, unspecified (CMS/HCC); Chronic systolic (congestive) heart failure (CMS/HCC); Chronic obstructive pulmonary disease, unspecified (CMS/HCC); Cardiomyopathy, unspecified (CMS/HCC) Start: 01-29-2024 End: 01-29-2024 ambulatory NICKI VELEZ Not Available Start: 01-29-2024 End: 01-29-2024 ambulatory Reji BROWER Facility:[facility] Start: 01-29-2024 End: 01-29-2024 Patient encounter procedure Reji BROWER [facility] Start: 01-26-2024 End: 01-26-2024 Office outpatient visit 15 minutes Nicki Velez CONDEMNATION ENGINEER Work Phone: [facility] Comment on above: Encounter for immuni zation (Primary Dx); Tinea corporis; Type 2 diabetes mellitus without complications ([facility]/HCC) Start: 01-26-2024 End: 01-26-2024 ambulatory NICKI VELEZ Not Available Start: 01-25-2024 End: 01-25-2024 Clinisync Result Encounter Generic External Data Provider [facility] Unsolicited Start: 01-25-2024 End: 01-25-2024 Clinisync Result Encounter Generic External Data Provider [facility] Unsolicited Start: 01-11-2024 End: 01-11-2024 ambulatory Xochilt Graham Facility[facility] Start: 01-11-2024 End: 01-11-2024 Patient encounter procedure Xochilt Graham [facility] Start: 12-28-2023 End: 12-28-2023 Clinisync Result Encounter Generic External Data Provider [facility] Unsolicited Start: 12-28-2023 End: 12-28-2023 Clinisync Result Encounter Generic External Data Provider [facility] Unsolicited Start: 12-25-2023 End: 12-25-2023 ambulatory Xochilt Graham Facility:[facility] Start: 12-25-2023 End: 12-25-2023 Patient encounter procedure Xochilt Graham [facility] Start: 11-29-2023 End: 11-29-2023 ambulatory EFREN CENTENO Not Available Start: 11-23-2023 End: 11-23-2023 ambulatory ROSA M GONZALES Not Available Start: 11-20-2023 End: [facility]23 [facility] Start: 11-07-2023 End: 11-07-2023 ambulatory TEAGAN [facility] Start: 10-30-2023 End: 10-30-2023 ambulatory ALICIA FISHMAN Not Available Start: 10-06-2023 End: 10-06-2023 ambulatory MACRINA MOON [facility] Start: 07-27-2023 End: 07-27-2023 ambulatory ROSA M GONZALES Not Available Start: 06-05-2023 End: 06-05-2023 [facility] Start: 05-29-2023 Clinisync Result Encounter Generic External Data Provider [facility] Unsolicited Start: 05-29-2023 Clinisync Result Encounter Generic External Data Provider [facility]solicited Start: 05-18-2023 End: 05-18[facility] 05-01-2023 End: 05-01-2023 ambulatory ALICIA GRIGGSI Not Available Start: 04-26-2023 End: 04-26-2023 ambulatory TEAGAN VILLANUEVA [facility] Start: 03-28-2023 ambulatory PETEY REDDING [facility] Start: 08-18-2022 End: 08-19-2022 ambulatory [...] encounter procedure Reji BROWER [facility] Start: 09-28-2021 End: 09-29-[address] FEDERICO CHESTER Facility: Start: 05-15-2021 End: 06-07-2021 ambulatory ROSA M GONZALES Facility:[facility] Start: 04-23-2021 Office outpatient vi sit 25 minutes Rosa M Gonzales Work Phone: [facility] 250 DO Work Phone: Start: 12-02-2020 End: 12-04-2020 Evaluation and management of inpatient YONAS HERRERA Facility:[facility] Start: 12-01-2020 End: 12-01-2020 Emergency department patient visit REFERRED SELF Facility:[facility] Start: 10-29-2020 End: 10-30-2020 ambulatory ROSA M GONZALES Facility:[facility] Start: 08-02-2020 End: 08-19-2020 Evaluation and management of inpatient JUAN FERREIRA Facility:[facility] Procedures Date Procedure Procedure Detail Performing Clinician Start: 03-05-2024 Hemoglobin glycosylated a1c Rosa M vernon MD Work Phone: Start: 03-05-2024 ALL CBC WITH AUTO DIFF Generic External Data Provider Start: 02-01-2024 ALL CBC WITH AUTO DIFF Generic External Data Provider Start: 01-26-2024 Colonoscopy Nicki Velez NP Work Phone: Start: 01-25-2024 MHPT PSA, DIAGNOSTIC Generic External Data Provider Start: 01-11-2024 Colonoscopy Nicki Velez NP Work Phone: Start: 01-11-2024 Colonoscopy Xochilt Graham Start: 01-11-2024 Esophagogastroduodenoscopy Xochilt lincoln Start: 12-28-2023 ALL CBC WITH AUTO DIFF Generic External Data Provider Start: 12-25-2023 History of renal transplant Xochilt Vann Start: 05-29-2023 TACROLIMUS ([id number]), BLOOD Generic Scout Leaser al Data Provider Start: 01-15-2023 Bilateral total nephrectomy Reji PRESCOTT MAURICE Start: 11-08-2022 History of placement of stent [...] Cardiac catheterization Anne Gonzales Work Phone: Colonoscopy Schmidt Ishanmin i Coronary artery bypass graft Rosa M Gonzales Work Phone: Coronary artery bypass grafts x 3 Reji BROWER Creation of graft fi stula for dialysis Rosa M Gonzales Work Phone: Extraction of wisdom tooth J durga Gonzales Work Phone: History of renal transplant Tania l transplant recipient Rosa M Gonzales Work Phone: History of renal transplant Kidn ey transplanted( Confirmed ) Reji BROWER Insertion of pacemak er pulse generator Rosa M Gonzales Work Phone: Placement of stent i n cardiac conduit Reji BROWER Total colonoscopy Rosa M Gonzales Work Phone: Transplant of kidney Kane Gonzales Work Phone: Plan of Treatment Date Care Activity Detail Author Start: 01-25-2034 Screening for malign ant neoplasm of colon [facility] Start: 01-10-2034 Screening for malign ant neoplasm of colon [facility] Start: 10-25-2024 Glaucoma screening Diabetes: R etinopathy Screening [facility] Start: 07-26-2024 Medicare Annual Well ness (AWV) Medicare Annual Wellness (AWV) [facility] Start: 06-05-2024 Hemoglobin A1c measurement Diabetes: Hemoglobin A1C [facility] Start: 05-18-2024 Urine screening for protein Diabetes: Urine Protein Screening [facility] Start: 05-02-2024 End: 05-02-2024 Patient encounter procedure 05/02/2024 10:50 AM EST Office Visit [facility] [address] [place] [address] Alicia Fishman MD [address] [place], [place] [id number] [facility] Start: 03-21-2024 End: 03-21-2024 Patient encounter procedure 03/21/2024 3:30 PM EST Office Visit [facility] [address] [place] [id number] Rosa M Gonzales MD [address] [place] [address] Arrived [facility] Comment on above: Arrived Start: 12-17-2023 Influenza vaccination Influenza Vacc ine (#1) [facility] Start: 11-09-2023 Medicare Annual Well ness (AWV) Medicare Annual Wellness (AWV) [facility] Start: 10-30-2023 End: 10-30-2023 Patient encounter procedure 10/30/2023 10:05 AM EDT Office Visit [facility] [address] [place] [address] Alicia Fishman MD [address] [place], [place] [phone] [facility] Start: 08-16-2023 Hemoglobin A1c measurement Diabetes: Hemoglobin A1C [facility] Start: 02-01-2023 Screening for malign ant neoplasm of colon [facility] Start: 12-27-1979 Urine screening for protein Diabetes: Urine Protein Screening [facility] Start: 1960 Screening for malign ant neoplasm of colon [facility] Immunizations Immunization Date Immunization Notes Care Provider Maribel moore 01-26-2024 influenza, seasonal, injectable, preservative free Nicki Velez NP Work Phone: [facility] 01-13-2023 influenza virus vaccine, unspecified formulation [facility] 01-13-2023 influenza, injectabl e, quadrivalent, preservative free Generic Provider [facility] 01-13-2022 influenza virus vaccine, unspecified formulation Schmidt Sarmini [facility] 01-13-2022 influenza, injectabl e, quadrivalent, preservative free Generic Provider [facility] 12-30-2021 Moderna Bivalent Booster Vaccination Generic Provider [facility] 12-30-2021 Moderna SARS-CoV-2 50mcg/0.5mL Booster Generic Provider [facility] 12-30-2021 SARS-CoV-2, Unspecified Generic Provider [facility] 07-21-2021 SARS-CoV-2 (COVID-19 ) mRNA-1273 vaccine Schmidt Sarmini [facility] Comment on above: Result Comment: 2023: [id number] 02-01-2021 influenza virus vaccine, unspecified formulation Schmdit Sarmini [facility] 02-01-2021 Seasonal, quadrivalent, recombinant, injectable influenza vaccine, preservative free Rosa M Gonzales Work Phone: [facility] 250 DO Work Phone: 01-06-2021 Moderna COVID-19 Vaccine 100 MCG/0.5ML Intramuscular Suspension Rosa M Gonzales Work Phone: [facility] Comment on above: Result Comment: 2023: [id number] 07-10-2020 Moderna COVID-19 Vaccine 100 MCG/0.5ML Intramuscular Suspension Rosa M Gonzales Work Phone: [facility] Comment on above: Result Comment: 2023: TPV50 06-12-2020 Moderna COVID-19 Vaccine 100 MCG/0.5ML Intramuscular Suspension Rosa M Gonzales Work Phone: [facility] Comment on above: Result Comment: 2023: [id number] 01-27-2020 influenza virus vaccine, unspecified formulation Schmidt Sarmini [facility] 01-27-2020 influenza, seasonal, injectable Rosa M Gonzales Work Phone: [facility] [employer] DO Work Phone: 01-22-2020 influenza virus vaccine, unspecified formulation Schmidt Sarmini [facility] 01-22-2020 Seasonal trivalent influenza vaccine, adjuvanted, preservative free Generic Provider [facility] 01-16-2020 influenza virus vaccine, unspecified formulation Rosa M Gonzales Work Phone: [facility] 01-16-2020 influenza, seasonal, injectable Generic Provider [facility] 02-05-2019 influenza virus vaccine, unspecified formulation Schmidt Sarmini [facility] 02-05-2019 Seasonal, quadrivalent, recombinant, injectable influenza vaccine, preservative free Rosa M Gonzales [facility] Work Phone: 05-11-2018 influenza virus vaccine, unspecified formulation Schmidt Sarmini [facility] 05-11-2018 influenza, injectabl e, quadrivalent, preservative free Rosa M R Janet [facility] Work Phone: 02-16-2018 influenza virus vaccine, unspecified formulation Schmidt Sarmini [facility] 02-16-2018 influenza, injectabl e, quadrivalent, preservative free Rosa M R Janet Work Phone: [facility] [employer] DO Work Phone: 06-08-2017 influenza virus vaccine, unspecified formulation Schmidt Sarmini [facility] 06-08-2017 influenza, injectabl e, quadrivalent, preservative free Rosa M R Janet Work Phone: [facility] [employer] DO Work Phone: 12-16-2016 influenza virus vaccine, unspecified formulation Schmidt Sarmini [facility] 12-16-2016 influenza, injectabl e, quadrivalent, contains preservative Rosa M R Janet Work Phone: [facility] [employer] DO Work Phone: 01-28-2015 influenza virus vaccine, unspecified formulation Schmidt Sarmini [facility] 01-28-2015 influenza, seasonal, injectable Rosa M R Janet Work Phone: [facility] [employer] DO Work Phone: 07-10-2014 Moderna SARS-CoV-2 Vaccination Generic Provider [facility] 04-27-2012 influenza virus vaccine, whole virus Rosa M R Janet Work Phone[facility] Work Phone: 04-27-2012 influenza, whole Schmidt Sa rmini [facility] NEGATED: Highlighted row has not occurred!12-25-2023 influenza virus vaccine, unspecified formulation Xochilt Graham [facility] Payers Date Payer Category Payer Private Health Insurance [id number] 2023 Medicare (Managed Care) [employer] M [employer] ADVANTAGE [id number] 2023 Medicare [id number] 2022 Private Health Insurance [facility] [id number] 2022-Present [address] [address] [place] [address] [id number] 2016 Medicare [id number] 1960 Unknown [id number] 2.16.840.1.903200.3.579. 2.647 1960 Unknown [id number] 2.16.840.1.427058.3.579. 2.647 1960 Unknown [id number] 2.16.840.1.541437.3.579. 2.647 1960 Unknown [id number] 2.16.840.1.713900.3.579. 2.647 1960 Unknown [id number] 2.16.840.1.422021.3.579. 2.647 1960 Unknown [id number] 2.16.840.1.513125.3.579. 2.593 1960 Unknown [id number] 2.16.840.1.477391.3.579. 2.593 1960 Unknown [id number] 2.16.840.1.209578.3.579. 2.593 1960 Unknown [id number] 2.16.840.1.217973.3.579. 2.593 1960 Unknown [id number] 2.16.840.1.429619.3.579. 2.593 1960 Unknown [id number] 2.16.840.1.990800.3.579. 2.593 1960 Unknown [id number] 2.16.840.1.760032.3.579. 2.593 1960 Unknown [id number] 2.16.840.1.559469.3.579. 2.593 1960 Unknown [id number] 2.16.840.1.988396.3.579. 2.593 1960 Unknown [id number] 2.16.840.1.529525.3.579. 2.1259 1960 Unknown [id number] 2.16.840.1.602807.3.579. 2.1259 1960 Unknown [id number] 2.16.840.1.617162.3.579. 2.1259 1960 Unknown [id number] 2.16.840.1.355477.3.579. 2.1259 1960 Unknown [id number] 2.16.840.1.911832.3.579. 2.1259 1960 Unknown [id number] 2.16.840.1.630853.3.579. 2.1259 1960 Unknown [id number] 2.16.840.1.696147.3.579. 2.1259 1960 Unknown [id number] 2.16.840.1.398950.3.579. 2.727 1960 Unknown [id number] 2.16.840.1.871014.3.579. 2.727 1960 Unknown [id number] 2.16.840.1.668712.3.579. 2.727 1960 Unknown [id number] 2.16.840.1.980397.3.579. 2.727 1959 Medicare [id number] 1959 Private Health Insurance [id number] Unknown Social History Date Type Detail Facility Start: 11-01-2022 End: 05-01-2023 No alcohol use No alcohol use [facility] Comment on above: 1-2 cups of coffee d aily.; Quit in 2008; Start: 01-01-2020 End: 10-30-2023 Tobacco smoking status Ex-smoker (finding) [facility] Start: 11-01-2022 End: 11-23-2023 Sex Assigned At Male [facility] End: 04-17-2007 History of tobacco use Current smoker [facility] End: 04-17-2007 History of tobacco use Cigarette Smoker [facility] Start: 11-06-2022 End: 10-30-2023 Tobacco use and exposure Smokeless tobacco non-user [facility] Start: 05-01-2023 End: 11-29-2023 Alcohol intake Ex-drinker (finding) [facility] Within the last year , have you been afraid of your partner or ex-partner? No [facility] Do you belong to any clubs or organizations such as rastafari groups, unions, fraternal or athletic groups, or [...] Gender identity Identifies as male gender (finding) [facility] Functional Status Date Assessment Result Facility 03-04-2024 Functional Status N/A [facility] 01-11-2024 Functional Status N/A [facility] 12-25-2023 Functional Status N/A [facility] 01-17-2022 Functional Status N/A [facility] Clinical Notes 08-20-2020 to 03-21-2024 Rosa M Gonzales MD - 03/21/2024 3:30 PM Sharla Velez NP - 01/29/2024 3:00 PM Kaur Velez NP - 01/26/2024 12:00 PM EDT Note Date & Type Note Facility 03-21-2024 History of Present illness Narrative Images from the original note were not included. Vishal Duke is a 63 y.o. male presents with chief complaint of follow up on shingles HPI: HPI History of Present Illness The patient presents for evaluation of shingles. He reports experiencing pain, numbness, itching, and a burning sensation associated with shingles. The blisters have healed, but he continues to experience symptoms along the scar line, extending from the back of his neck to his shoulder. He also reports occasional shooting pain in his head and back, with some residual spots on his neck. He describes the sensation as cristóbal to shirt touching raw meat. He has been using CeraVe and calamine lotion for relief, which provide temporary respite. He notes that the condition has improved compared to the previous week, but it remains a significant source of discomfort. He has been managing the pain with Tylenol, taking 2 to 3 tablets as needed. He has recently completed a course of steroids and was prescribed pain medication, which he found ineffective. He has been dealing with this condition for approximately 6 to 8 weeks. He recalls that during the initial phase, he was unable to tolerate touch or determine water temperature during showers. He also notes that exposure to cold wind exacerbates his symptoms. He expresses concern about the potential for another episode of shingles and is considering getting the shingles vaccine. He saw his central melt specialist on Monday. His ejection fraction is up to 50%. He was advised not to engage in strenuous activities such as running or snow blowing. He was told that his condition is improving because the blockage is not worsening. He was put on Jardiance and was advised not to stop taking it. He has not had any issues with his blood sugar being high, except when he is in the hospital for surgeries and receives steroids. He is not diabetic. MEDICATIONS Current: Jardiance, Tylenol, CeraVe, calamine lotion SUBJECTIVE: MEDICATIONS: Current Outpatient Medications Medication Instructions [...] crush or chew lisinopril 5 MG tablet Daily magnesium oxide (Mag-Ox) 400 (240 Mg) MG tablet TAKE 1 TABLET BY MOUTH THREE TIMES DAILY (IN THE MORNING, IN THE EVENING, and BEFORE bedtime) metoprolol succinate XL (TOPROL-XL) 100 mg, Daily mycophenolate (MYFORTIC) 180 mg, Oral, 2 times daily nitroglycerin (NITROSTAT) 0.4 mg, Sublingual, Every 5 min PRN ranolazine (RANEXA) 500 mg, 2 times daily tacrolimus (PROGRAF) 0.5 mg, 2 times daily I have reviewed and reconciled the history and medication list with the patient today. REVIEW OF SYMPTOMS: Review of Systems OBJECTIVE: Visit Vitals BP 112/72 Pulse 72 Ht 5' 11 Wt 202 lb 12.8 oz SpO2 92% BMI 28.28 kg/m Smoking Status Former BSA 2.15 m Physical Exam Vitals and nursing note reviewed. Constitutional: Appearance: Normal appearance. Cardiovascular: Rate and Rhythm: Normal rate and regular rhythm. Pulses: Normal pulses. Heart sounds: Normal heart sounds. Pulmonary: Effort: Pulmonary effort is normal. Breath sounds: Normal breath sounds. Musculoskeletal: Cervical back: Normal range of motion and neck supple. Skin: Comments: Scaling and redness from chin down scar of anterior chest and over the to right shoulder and up to the back of neck. No blisters. Neurological: Mental Status: He is alert. ASSESSMENT AND PLAN: Assessment & Plan 1. Shingles. The patient's symptoms of numbness, itching, and burning are consistent with shingles, which is affecting multiple nerves due to his immunocompromised state. The neuropathy associated with shingles can persist for several weeks to months. He has been using CeraVe and calamine lotion for symptomatic relief. He does not feel the need for additional pain medication at this time. He was advised to consult with his tobacco checkout clerk regarding the administration of the Shingrix vaccine. 2. Cardiac issues. He saw his central melt specialist on Monday. His ejection fraction is up to 50%. He was advised not to engage in strenuous activities such as running or snow blowing. He was put on Jardiance and was advised not to stop taking it. He has not had any issues with his blood sugar being high, except when he is in the hospital for surgeries and receives steroids. He is not diabetic. Assessment/Plan Problem List Items Addressed This Visit None Visit Diagnoses Herpes zoster without complication - Primary Elevated fasting glucose Relevant Orders Hemoglobin A1c (Completed) documented in this encounter [facility] 03-18-2024 Note [facility] Cardiology Clinic Note Chief Complaint: Patient here for 4 mo follow up CAD, hypertension, hyperlipidemia, and ischemic congestive cardiomyopathy. Had echo back in Nov 2023 after last apt. He is due for routine device interrogation next month. Uses nitroglycerin occasionally for chest pain he says. HPI: Generally doing about the same. Continues [...] back disease. Cardiology ROS: Review of Systems Cardiovascular: Positive for chest pain and palpitations (occasional). Neurological: Positive for light-headedness (occasional). [...] started smoking about 47 years ago. He has a 31 pack-year smoking history. He has never used smokeless tobacco. He [...] Take 1 tablet (75 mg) by mouth once daily as directed., Disp: 90 tablet, Rfl: 3 empagliflozin (Jardiance) [...] Take 1 tablet (60 mg) by mouth once daily as directed. Do not crush or chew., Disp: 90 tablet, Rfl: 3 lisinopril 5 mg tablet, Take 1 tablet (5 mg) by mouth in the morning., Disp: 90 tablet, Rfl: 3 magnesium oxide (Mag-Ox) 400 mg tablet, 400 mg three times daily. Take 3 tablets, Disp: , Rfl: methocarbamol (Robaxin) 500 mg tablet, Take 1 tablet (500 mg) by mouth if needed in the morning, at noon, and at bedtime for muscle spasms for up to 5 days. (Patient not taking: Reported on 02/09/2023), Disp: 15 tablet, Rfl: 0 metoprolol succinate XL (Toprol-XL) 100 mg 24 hr tablet, Take 1 tablet (100 mg) by mouth in the morning. Do not crush or chew., Disp: 90 tablet, Rfl: 3 metoprolol succinate XL (Toprol-XL) 200 mg 24 hr tablet, Take 0.5 tablets (100 mg) by mouth once daily as directed. Do not crush or chew., Disp: 90 tablet, Rfl: 3 mycophenolate (Myfortic) 180 mg EC tablet, Take [...] mg) by mouth in the morning. TDD 1.5mg, Disp: 30 capsule, Rfl: 11 tacrolimus (Prograf) 1 mg capsule, TDD 1.5mg, Disp: 30 capsule, Rfl: 11 Last Recorded Vitals BP 114/73 (BP Location: Right arm, Patient Position: Sitting) Pulse 63 Ht 1.803 m (5' 11 ) Wt 92.5 kg (204 lb) SpO2 96% BMI 28.45 kg/m??? Physical Examination: GENERAL: alert and oriented x3, well developed, in no acute distress. HEAD: atraumatic, normocephalic. EYES: PROSPER, EOMI. NECK: trachea midline, no JVD present, no carotid bruits present. CARDIAC: S1, S2 present. RRR. No murmur, (more content not included)... [facility] 03-04-2024 Hospital Discharge instructions Patient Education 03/04/2024 15:01:44 Benign Prostatic Hyperplasia Benign Prostatic Hyperplasia Benign prostatic hyperplasia (BPH) is an enlarged prostate gland that is caused by the normal aging process. The prostate may get bigger as a man gets older. The condition is not caused by cancer. The prostate is a walnut-sized gland that is involved in the production of semen. It is located in front of the rectum and below the bladder. The bladder stores urine. The urethra carries stored urine out of the body. An enlarged prostate can press on the urethra. This can make it harder to pass urine. The buildup of urine in the bladder can cause infection. Back pressure and infection may progress to bladder damage and kidney (renal) failure. What are the causes? This condition is part of the normal aging process. However, not all men develop problems from this condition. If the prostate enlarges away from the urethra, urine flow will not be blocked. If it enlarges toward the urethra and compresses it, there will be problems passing urine. What increases the risk? This condition is more likely to develop in men older than 50 years. What are the signs or [...] urethra. Follow these instructions at home: Take qber-jrv-xxlmetk and prescription medicines only as told by your health care provider. Monitor your symptoms for any changes. Contact your health care provider with any changes. Avoid drinking large amounts of liquid before going to bed or out in public. Avoid or reduce how much caffeine or alcohol you drink. Give yourself time when you urinate. Keep all follow-up visits. This is important. Contact a health care provider if: You have unexplained back pain. Your symptoms do not get better with treatment. You develop side effects from the medicine you are taking. Your urine becomes very dark or has a bad smell. Your lower abdomen becomes distended and you have trouble passing urine. Get help right away if: You have a fever or chills. You suddenly cannot urinate. You feel light-headed or very dizzy, or you faint. There are large amounts of blood or clots in your urine. Your urinary problems become hard to manage. You develop moderate to severe low back or flank pain. The flank is the side of your body between the ribs and the hip. These symptoms may be an emergency. Get help right away. Call 911. Do not wait to see if the symptoms will go away. Do not drive yourself to the hospital. Summary Benign prostatic hyperplasia (BPH) is an enlarged prostate that is caused by the normal aging process. It is not caused by cancer. An enlarged prostate can press on the urethra. This can make it hard to pass urine. This condition is more likely to develop in men older than 50 years. Get help right away if you suddenly cannot urinate. This information is not intended to replace advice given to you by your health care provider. Make sure you discuss any questions you have with your health care provider. Document Revised: 10/20/2021 Document Reviewed: 10/20/2021 [employer] Patient Education 2023 [employer]. Follow Up Care 01/29/2024 08:18:27 With:LEONARDA FRANK, Reji Farrell, URL Address: [facility] [address] , [place] [id number]- [phone] When: Unknown Comments:2 yrs w/ PSA [facility] 03-04-2024 Note Patient Education Urology Benign Prostatic Hyperplasia Benign prostatic hyperplasia (BPH) is an enlarged prostate gland that is caused by the normal aging process. The prostate may get bigger as a man gets older. The condition is not caused by cancer. The prostate is a walnut-sized gland that is involved in the production of semen. It is located in front of the rectum and below the bladder. The bladder stores urine. The urethra carries stored urine out of the body. An enlarged prostate can press on the urethra. This can make it harder to pass urine. The buildup of urine in the bladder can cause infection. Back pressure and infection may progress to bladder damage and kidney (renal) failure. What are the causes? This condition is part of the normal aging process. However, not all men develop problems from this condition. If the prostate enlarges away from the urethra, urine flow will not be blocked. If it enlarges toward the urethra and compresses it, there will be problems passing urine. What increases the risk? This condition is more likely to develop in men older than 50 years. What are the signs or symptoms? Symptoms of this condition include: ??? Getting up often during the night to urinate. ??? Needing to urinate frequently during the day. ??? Difficulty starting urine flow. ??? Decrease in size and strength of your urine stream. ??? Leaking (dribbling) after urinating. ??? Inability to pass urine. This needs immediate treatment. ??? Inability to completely empty your bladder. ??? Pain when you pass urine. This is more common if there is also an infection. ??? Urinary tract infection (UTI). How is this diagnosed? This condition is diagnosed based on your medical history, a physical exam, and your symptoms. Tests will also be done, such as: ??? A post-void bladder scan. This measures any amount of urine that may remain in your bladder after you finish urinating. ??? A digital rectal exam. In a rectal exam, your health care provider checks your prostate by putting a lubricated, gloved finger into your rectum to feel the back of your prostate gland. This exam detects the size of your gland and any abnormal lumps or growths. ??? An exam of your urine (urinalysis). ??? A prostate specific antigen (PSA) screening. This is a blood test used to screen for prostate cancer. ??? An ultrasound. This test uses sound waves [...] severity of your condition. Treatment may include: ??? Observation and yearly exams. This may be the only treatment needed if your condition and symptoms are mild. ??? Medicines to relieve your symptoms, including: ? Medicines to shrink the prostate. ? Medicines to relax the muscle of the prostate. ??? Surgery in severe cases. Surgery may include: ? Prostatectomy. In this procedure, the prostate tissue is removed completely through an open incision or with a laparoscope or robotics. ? Transurethral resection of the prostate (TURP). In this procedure, a tool is inserted through the opening at the tip of the penis (urethra). It is used to cut away tissue of the inner core of the prostate. The pieces are removed through the same opening of the penis. This removes the blockage. ? Transurethral incision (TUIP). In this procedure, small cuts are made in the prostate. This lessens the prostate's pressure on the urethra. ? Transurethral microwave thermotherapy (TUMT). This procedure uses microwaves to create heat. The heat destroys and removes a small amount of prostate tissue. ? Transurethral needle ablation (TUNA). This procedure uses radio frequencies to destroy and remove a small amount of prostate tissue. ? Interstitial laser coagulation (ILC). This procedure uses a laser to destroy and remove a small amount of prostate tissue. ? Transurethral electrovaporization (TUVP). This procedure uses electrodes to destroy and remove a small amount of prostate tissue. ? Prostatic urethral lift. This procedure inserts an implant to push the lobes of the prostate away from the urethra. Follow these instructions at home: ??? Take jbuh-jmy-oogohal and prescription medicines only as told by your health care provider. ??? Monitor your symptoms for any changes. Contact your health care provider with any changes. ??? Avoid drinking large amounts of liquid before going to bed or out in public. ??? Avoid or reduce how much caffeine or alcohol you drink. ??? Give yourself time when you urinate. ??? Keep all follow-up visits. This is important. Contact a health care provider if: ??? You have unexplained back pain. ??? Your symptoms do not get (more content not included)... [facility] 02-07-2024 Note The patient had a te stosterone level of 136 on 02/01/2024. His name was added to the low testosterone list for the month of January 2024. [facility] 02-02-[address] Abiola jain, [facility] notified to increase fluids to hydrate well and recheck standing lab order in 2 weeks due to elevated creatinine and Hgb of 17.0. Patient also advised he is currently being treated for shingles and will finish antibiotic on Monday. He states shingle starting to dry up now. He will let us know if anything changes and they aren't healing. [facility] 01-29-2024 History of Present illness Narrative Vishal Duke is a 63 [...] Managed by cardiology documented in this encounter [facility] 01-26-2024 History of Present illness Narrative Images from the original note [...] Started after he was working outside, moving [employer] SUBJECTIVE: MEDICATIONS: Current Outpatient Medications Medication Instructions [...] with lifestyle modifications documented in this encounter [facility] 01-11-2024 Evaluation + Plan note Extrac remedios [...] Endo Author:Ivan Rodriguez Jr., DO Date:01/11/24 Plan [employer] (ASA) physical status classification: Class III. Anesthetic Preoperative Plan: Anesthesia General, and -TIVA. Future Appointments Appointment Date:01/29/2024 10:30:00 AM Scheduled Provider:Reji BROWER MD Location:[facility] Appointment Type:URO Office Visit [facility] 09-26-2024 Hospital Discharge instructions Patient Education 01/11/2024 [...] reduce GERD symptoms. Medicines. These may include: ?Ktzk-dus-kbpboaw antacids. ?Medicines that make your stomach empty [...] may include: ?Fatty foods, like fried foods. ?Forsyth fruits, like oranges or lemon. ?Other foods [...] Do not drink alcohol. General instructions Take umcd-chq-mncrfec and prescription medicines only as told by [...] provider. Document Revised: 05/31/2022 Document Reviewed: 05/31/2022 [employer] Patient Education 2023 [employer]. 01/11/2024 10:20:44 Endoscopy, Care After Procedure [facility] Endoscopy Care After Procedure Please read the instructions outlined below and refer to this sheet in the next few weeks. These discharge instructions provide you with general information on caring for [facility] Your doctor may also give you specific [...] blood. Document Released: 11/15/2004 Document Re-Released: 09/25/2006 [employer] Patient Information VetDC. 01/11/2024 10:20:35 Colon Polyps Colon Polyps Colon [...] hard liquor (44 mL). General instructions Take jwmy-mws-netqexl and prescription medicines only as told by [...] provider. Document Revised: 07/22/2020 Document Reviewed: 07/22/2020 [employer] Patient Education 2023 [employer]. 01/11/2024 10:20:34 Colonoscopy, Care After Surgery Salam (CUSTOM) Colonoscopy Care After Surgery Please read the instructions outlined below and refer to this sheet in the next few weeks. These discharge instructions provide you with general information on caring for yourself [facility] Your doctor may also give you specific [...] Care 12/25/2023 10:22:05 With:Gladys FRANK, JIN Saez, [facility] Address: When: Unknown Comments:Call for any problems. Office will call to schedule follow up appointment [facility] 09-26-2024 NoteProgress Note-Physician Patient: VISHAL DUKE Age: 63 years Sex: Male : 1960 Associated Diagnoses: None Author: Ivan Orozco Jr., DO Postoperative Information Postoperative disposition: Postoperative disposition: Home. Optimetrix number: Optimetrix number [id number]. Anesthetic utilized: General. Physical Examination Vital Signs [...] to Ambulatory Surgery Unit, and To home ).[facility] HospitalComment on above:Result Comment: Electronically Signed By: Ivan Orozco Jr., DO\Date and Time Signed: 01/11/24 11:27 [id number] NoteEndoscopic Procedure Report - Other Patient: VISHAL DUKE Age: 63 years Sex: Male : 1960 Associated Diagnoses: None Author: Xochilt Graham MD Pre-Procedure Procedure Date 01/11/2024 10:26:00 . Procedure Type: Colonoscopy with removal of tumor(s), polyp(s), or other lesion(s) by cold snare technique. Procedure provider Performed by Xochilt Graham MD. Current history and physical Reviewed. Kidney transplant ([id number]) on 01/01/2018 at 57 Years. Comments: 01/01/2020 12:00 Ronald Molina MAjean Seo Pt has three kidneys Placement of stent in cardiac conduit ([id number]). Triple coronary bypass (896382608). Bilateral vasectomy (290829974). Colonoscopy (267327902).. Past Medical History No active or resolved past medical history items have been selected or recorded.. Family History Alzheimer's disease Mother . Procedure History Kidney transplant ([id number]) on 01/01/2018 at 57 Years. Comments: 01/01/2020 12:00 WES Anderson MA Leia Seo Pt has three kidneys Placement of stent in cardiac conduit (0714027190). Triple coronary bypass (483733211). Bilateral vasectomy (044313201). Colonoscopy (746391825).. Colorectal neoplasm risk assessment High risk Previous [...] bedtime), # 90 tab(s), Refills(s) 0, Pharmacy: [facility], 177.8, cm, 12/25/23 9:23:00 EDT, Height/Length [...] Normal examined terminal ileum Images Procedure images: Rec1_hd_video_09_14_21_094.jpg Rec1_hd_video_09_14_07_725.jpg Rec1_hd_video_09_13_15_291.jpg Rec1_hd_video_09_11_28_356.jpg Rec1_hd_video_T09_11_20_920.jpg Rec1_hd_video_09_10_48_698.jpg Rec1_hd_video_T09_08_29_068.jpg Rec1_hd_video__T09__28_957.jpg Rec1_hd_video_2023__T09_05_36_358.jpg (Inserted Image. Unable to dis (more content not included)...[facility] HospitalComment on above:Result Comment: Electronically Signed By: Gladys FRANK, Xochilt Butler\.br\Date and Time Signed: 01/11/24 10:28 EDTOther Comment: Missing Attachment - attachment storage system not supported [id number] Can be viewed in source systemMissing Attachment - attachment storage system not supported [id number] Can be viewed insource systemMissing Attachment - attachment storage system not supported 1020769 Can be viewed in source systemMissing Attachment - attachment storage system not supported [id number] Can be viewed in so urce systemMissing Attachment - attachment storage system not supported 5746295 Can be viewed in source systemMissing Attachment - attachment storage system not supported 7974913 Can be viewed in source systemMissing Attachment - attachment storage system not supported 6111516 Can be viewed in source systemMissing Attachment - attachment storage system not supported 4050692 Can be viewed in source systemMissing Attachment - attachment storage system not supported 6880484 Can be viewed in sourcesystemMissing Attachment - attachment storage system not supported 4043213 Can be viewed in source systemMissing Attachment - attachment storage system not supported 3116954 Can be viewed in source sy [facility]Miss[facility] Attachment - attachment storage system not supported 7361946 Can be viewed in source systemMissing Attachment - attachment storage system not supported 0723954 Can be viewed in source [id number] NotePatient Education - Text Endoscopy Care After Procedure Please read the instructions outlined below and refer to this sheet in the next few weeks. These discharge instructions provide you with general information on caring for yourself [facility] Your doctor may also give you specific [...] Document Re-Released: 09/25/2006 ExitCare? Patient Information ?2009 FP Complete. Colonoscopy Care After Surgery Please read the instructions outlined below and refer to this sheet in the next few weeks. These discharge instructions provide you with general information on caring for yourself [facility]. Your doctor may also give you specific [...] weakness can develop ove (more content not included)...[facility] NoteEndoscopic Procedure Report - Other Patient: VISHAL [...] Rec1_hd_video__T08_45_23_273.jpg Rec1_hd_video__T08_45_03_184.jpg Rec1_hd_video__T08_44_52_949.jpg Rec1_hd_video__T08_43_34_038.jpg Rec1_hd_video__T08_43_22_197.jpg Rec1_hd_video__T08_43_03_991.jpg Rec1_hd_video__T08_42_47_702.jpg Rec1_hd_video__T08_41_40_816.jpg Rec1_hd_video_2023__T08_41_35_166.jpg Rec1_hd_video_2023__T08_41_25_447.jpg . Post-Procedure Complications: none. Estimated blood [...] follow in GI clinic in 1-2 after dischargeOhio[facility]ady [facility] HospitalComment on above:Result Comment: Electronically Signed By: Gladys FRANK, Xochilt Butler\.br\Date and Time Signed: 01/11/24 09:38 EDTOther Comment: Missing Attachment - attachment storage system not supported [id number] Can be viewed in source system Missing Attachment - attachment storage system not supported 2564734 Can be viewed in source systemMissing Attachment - attachment storage system not supported 2224933 Can be viewed in source systemMissing Attachment - attachment storage system not supported 0429616 Can be viewed in source systemMissing Attachment - attachment storage system not supported 3092806 Can be viewed in source systemMissing Attachment - attachment storage system not supported 7720967 Can be viewed in source systemMissing Attachment - attachment storage system not supported 6469587 Can be viewed in source systemMissing Attachment - attachment storage system not supported 8460401 Can be viewed in source system Missing Attachment - attachment storage system not supported 9077058 Can be viewed in source systemMissing Attachment - attachment storage system not supported 8812117 Can be viewed in source systemMissing Attachment - attachment storage system not supported 9405720 Can be viewed in source [id number] NoteHistory and Physical Patient: VISHAL DUKE Age: 63 years Sex: Male : 1960 Associated Diagnoses: None Author: Gladys FRANK, Xochilt Butler Preoperative Information Indication for procedure and diagnosis: [...] bedtime), # 90 tab(s), Refills(s) 0, Pharmacy: [facility], 177.8, cm, 12/25/23 9:23:00 EDT, Height/Length [...] BPH with urinary obstruction / SNOMED CT 4785174790 / Confirmed Hypertension / SNOMED CT 7164000518 / Confirmed Renal failure / SNOMED CT 37913069 / Confirmed polycystic kidney disease / SNOMED CT 921223840 / Confirmed Hyperlipidemia / SNOMED CT 24117915 / Confirmed Microhematuria / SNOMED CT 826587361 / Confirmed Nocturia / SNOMED CT 440976387 / Confirmed Kidney transplanted / SNOMED CT 8163942292 / Confirmed Myocardial infarct / SNOMED CT 58894354 / Confirmed Screen for colon cancer / SNOMED CT 223226559 / Confirmed History of colon polyps / SNOMED CT 2595504864 / Confirmed Histories Past Medical History: No active or resolved past medical history items have been selected or recorded. Family History: Mother Alzheimer's disease Procedure history: Kidney transplant ([id number]) on 01/01/2018 at 57 Years. Comments: 01/01/2020 12:00 EDT - Justin LONG, Leia Seo Pt has three kidneys Placement of stent in cardiac conduit (6362557639). Triple coronary bypass (449899503). Bilateral vasectomy (448093914). Colonoscopy (199340107). Social History Social & Psychosocial Habits Alcohol [...] of hyperplastic polyps, GERD Plan: -EGD and ColonoscopyOhiohealth Grady Memorial HospitalComment on above:Result Comment: Electronically Signed By: Gladys FRANK, Xochilt Butler\.br\Date and Time Signed: 01/11/24 09:25 [id number] NoteProgress Note-Physician Patient: VISHAL DUKE Age: 63 [...] bedtime), # 90 tab(s), Refills(s) 0, Pharmacy: [facility], 177.8, cm, 12/25/23 9:23:00 EDT, Height/Length [...] BPH with urinary obstruction / SNOMED CT 9150385492 / Confirmed History of colon polyps / SNOMED CT 4397504141 / Confirmed Hyperlipidemia / SNOMED CT 55013271 / Confirmed Hypertension / SNOMED CT 1686532764 / Confirmed Kidney transplanted / SNOMED CT 2870403326 / Confirmed Microhematuria / SNOMED CT 949296301 / Confirmed Myocardial infarct / SNOMED CT 87536203 / Confirmed Nocturia / SNOMED CT 533364030 / Confirmed polycystic kidney disease / SNOMED CT 103936182 / Confirmed Renal failure / SNOMED CT 83248735 / Confirmed Screen for colon cancer / SNOMED CT 589573966 / Confirmed Histories Past Medical History: No active or resolved past medical history items have been selected or recorded. Procedure history: Kidney transplant ([id number]) on 01/01/2018 at 57 Years. Comments: 01/01/2020 12:00 EDT - Leia Anderson MA Pt has three kidneys Placement of (more content not included)...[facility] HospitalComment on above:Result Comment: Electronically Signed By: Ivan Orozco Jr., DO\.adam\Date and Time Signed: 01/11/24 08:41 [id number] [facility] Chief Complaint: Patient [...] bruits present. CARDIAC: S1, (more content not included)...[facility] 06-06-2023 Hospital Discharge instructions Follow Up Care 06/06/2023 12:55:17 With:LEONARDA FRANK, Reji Farrell, URL Address: [facility] [address], [place] [address] [phone] When: Unknown [facility] Chief Complaint: Patient [...] BMI 28.70 kg/m??? Physica (more content not included)...[facility] 05-18-2023 Note05/18/23 I called the pt [...] Pt verbalized understanding of the dose change. [facility]02-01-2024 Note05/18/23 DD Renal transplant on (08/15/2017) by Dr. Marquez. CMV +/-. History of PKD. Patient has recent history of an MD and had Pacer/Defib Placed. Vishal Duke is [...] Review Audit Reviewed by Cierra Danielson MA (Spouter) on 05/18/23 at 1014 Medication Order Taking? Sig Documenting Provider Last Dose Status albuterol (ProAir HFA) 90 mcg/actuation inhaler [id number] Yes Inhale 2 puffs every 4 (four) hours if needed for wheezing or shortness of breath. Laney Busch MD Taking Active aspirin 81 mg EC tablet [id number] Yes Take 81 mg by mouth in the morning. Makayla Gates MD Taking Active atorvastatin (Lipitor) 80 mg tablet [id number] Yes Take 1 tablet (80 mg) by mouth at bedtime. Federico Chester MD Taking Active clopidogrel (Plavix) 75 mg tablet [id number] Yes Take 1 tablet (75 mg) by mouth in the morning. Federico Chester MD Taking Active empagliflozin (Jardiance) 10 mg [id number] Yes Take 1 tablet (10 mg) by mouth once daily as directed. Federico Chester MD Taking Active esomeprazole (NexIUM) [address] capsule [id number] Yes Take 1 capsule (40 mg) by mouth before breakfast. Do not open capsule. Federico Chester MD Taking Active famotidine (Pepcid) 20 mg tablet [id number] No Take 20 mg by mouth in the morning and at bedtime. Makayla Gates MD Not Taking Flag for Review isosorbide mononitrate ER (Imdur) 60 mg 24 hr tablet [id number] Yes Take 1 tablet (60 mg) by mouth in the morning. Do not crush or chew. Federico Chester MD Taking Active lisinopril 5 mg tablet [id number] Yes Take 1 tablet (5 mg) by mouth in the morning. Federico Chester MD Taking Active magnesium oxide (Mag-Ox) 400 mg tablet [id number] Yes 400 mg in the morning. Take 3 tablets Makayla Gates MD Taking Differently Active methocarbamol (Robaxin) 500 mg tablet [id number] Take 1 tablet (500 mg) by mouth if needed in the morning, at noon, and at bedtime for muscle spasms for up to 5 days. Patient not taking: Reported on 02/09/2023 Lani Olson MD 01/30/232358 metoprolol succinate XL (Toprol-XL) 200 mg 24 hr tablet Yes Take 1 tablet (200 mg) by mouth once daily as directed. Do not crush or chew. Federico Chester MD Taking Active mycophenolate (Myfortic) 180 mg EC tablet [id number] Yes Take 3 tablets (540 mg) by mouth in the morning and at bedtime. Petey Redding NP Taking Active nitroglycerin (Nitrostat) 0.4 mg SL tablet [id number] Yes Place 0.4 mg under the tongue every 5 (five) minutes if needed for chest pain. Historical Provider, Taking Active predniSONE (Deltasone) 5 mg tablet [id number] Yes Take 5 mg by mouth in the morning. Historical Provider, Taking Differently Active ranolazine (Ranexa) 500 mg 12 hr tablet Yes Take 1 tablet (500 mg) by mouth in the morning and at bedtime. Do not crush, chew, or split. Federico Chester MD Taking Active tacrolimus (Prograf) 0.5 mg capsule [id number] Yes Take 1 capsule (0.5 mg) by mouth in the morning. TDD 1.5mg Patient taking differently: Take 0.5 mg by mouth once daily in the evening. TDD (more content not included)...[facility]12-13-2023 Note Patient's tac level of 9.[address] Basurto and he just wants to watch it no medication change. Maria G Mayberry, [facility] Note 03/28/23 Chief Complaint Patient presents with Kidney Follow-up Patient have no concerns PCP: Rosa M Gonzales MD Txp Referring: Preferred Pharmacy: [facility] - [place], [place] - [address] [place] [address] Subjective Visit Vitals BP 111/61 Pulse 60 Wt 90.3 kg (199 lb) BMI 27.75 kg/m??? Smoking Status Former BSA 2.13 m??? No Known Allergies Medication Documentation Review Audit Reviewed by Tim Foy MA (Spouter) on 03/28/23 at 0912 Medication Order Taking? Sig Documenting Provider Last Dose Status albuterol (ProAir HFA) 90 mcg/actuation inhaler [id number] Yes Inhale 2 puffs every 4 (four) hours if needed for wheezing or shortness of breath. Laney Busch MD Taking Active aspirin 81 mg EC tablet [id number] Yes Take 81 mg by mouth in the morning. Historical ProviderMD Taking Active atorvastatin (Lipitor) 80 mg tablet [id number] Yes Take 1 tablet (80 mg) by mouth at bedtime. Federico Chester MD Taking Active clopidogrel (Plavix) 75 mg tablet [id number] Yes Take 1 tablet (75 mg) by mouth in the morning. Federico Chester MD Taking Active empagliflozin (Jardiance) 10 mg [id number] Yes Take 1 tablet (10 mg) by mouth once daily as directed. Federico Chester MD Taking Active esomeprazole (NexIUM) [address] capsule [id number] Yes Take 1 capsule (40 mg) by mouth before breakfast. Do not open capsule. Federico Chester MD Taking Active famotidine (Pepcid) 20 mg tablet [id number] Yes Take 20 mg by mouth in the morning and at bedtime. Historical ProviderMD Taking Active isosorbide mononitrate ER (Imdur) 60 mg 24 hr tablet [id number] Yes Take 1 tablet (60 mg) by mouth in the morning. Do not crush or chew. Federico Chester MD Taking Active lisinopril 5 mg tablet [id number] Yes Take 1 tablet (5 mg) by mouth in the morning. Federico Chester MD Taking Active magnesium oxide (Mag-Ox) 400 mg tablet [id number] Yes 400 mg in the morning. Historical ProviderMD Taking Active methocarbamol (Robaxin) 500 mg tablet [id number] Take 1 tablet (500 mg) by mouth if needed in the morning, at noon, and at bedtime for muscle spasms for up to 5 days. Patient not taking: Reported on 02/09/2023 Lani Olson MD 01/30/23 5751 metoprolol succinate XL (Toprol-XL) 200 mg 24 hr tablet Yes Take 1 tablet (200 mg) by mouth once daily as directed. Do not crush or chew. Federico Chester MD Taking Active mycophenolate (Myfortic) 180 mg EC tablet [id number] Yes Take 3 tablets (540 mg) by mouth in the morning and at bedtime. Bobby Maldonado MD Taking Active nitroglycerin (Nitrostat) 0.4 mg SL tablet [id number] Yes Place 0.4 mg under the tongue every 5 (five) minutes if needed for chest pain. Historical Provider, Taking Active predniSONE (Deltasone) 5 mg tablet [id number] Yes Take 5 mg by mouth every other day. Historical Provider, Taking Active ranolazine (Ranexa) 500 mg 12 hr tablet [id number] Yes Take 1 tablet (500 mg) by mouth in the morning and at bedtime. Do not crush, chew, or split. Federico Chester MD Taking Active tacrolimus (Prograf) 0.5 mg capsule [id number] Yes tacrolimus 0.5 mg capsule, immediate-release TAKE 1 CAPSULE BY MOUTH TWICE DAILY Phoebe Culver MD Taking Active Immunization History Administered Date(s) Administered Unspecified Sars-Cov-2 Vaccination 12/30/2021 Patient Active Problem List Diagnosis Aftercare following organ transplant Kidney replaced by transplant Electrolyte abnormality Immunosuppression ([facility]/HCC) Polycystic kidney disease, autosomal dominant Elevated hemoglobin ([facility]) Other abnormality of red blood cells Post-COVID chronic dyspnea Chronic systolic congestive heart failure ([facility]) Active rickets Acute bronchitis Acute non-ST elevation myocardial infarction (NSTEMI) ([facility]) Age-related nuclear cataract of left eye 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 Coronary artery disease involving [place] coronary artery of [place] heart with unstable angina pectoris ([facility]) Gastroesophageal reflux disease Hypertension End-stage renal disease ([facility]) Coronary atherosclerosis Hyperkalemia History of kidney [...] disease Ventricular tachycardia (CMS/HCC (more content not included)...[facility]02-13-2023 NoteCARDIAC STRESS TEST Requesting Physician: Procedure Date:05/30/2022 [...] interpreted, and relayed in a separate dictation.[facility] [id number] Hospital Discharge instructions Patient Education 01/17/2022 12:05:57 [...] urethra. Follow these instructions at home: Take pjqv-bnu-lgguyto and prescription medicines only as told by [...] 04/03/2006 Document Revised: 02/26/2019 Document Reviewed: 05/08/2017 [employer] Patient Education [email or web address]. Follow Up Care 11/09/2021 10:07:55 With:LEONARDA FRANK, Reji Farrell, URL Address: [facility] [address], [place] [address]- [phone] When:01/18/2024 Comments:PSA [facility] 10-03-2022 Evaluation + Plan note Diagnostic Tests Pending * PSA Total 01/17/22 [facility] 02-15-2022 NotePROCEDURE: Nexwaypeed VCT 64, 5.0 mm slice axial images [...] signed by Anjum Remy on 06/01/2021 1051[facility]08-21-2021 NoteMR#: [id number] I [facility] Pt. Name: Vishal Duke Admitted: 12/02/2020 [...] Herrera MD Date Trans: 12/05/2020 05:37 A/patrizia [id number] cc: Rosa M Gonzales M.D. [address] [facility] [place] [address] NoteMR#: [id number] [facility] Pt. Name: Vishal Duke Date of Service: 12/02/2020 Room #: 4CD [id number] Birthdate: 1960 Referring Physician: CONSULTATION Reason for [...] disease, gout, GERD, hypertension, CAD status post MD and 2 stents, HLD, Covid pneumonia Past surgical history: AV fistula left arm, cardiac catheterization 10/29/2020, renal transplant 2018, cardiac catheterization 2017 with 2 stent placements, prior intraperitoneal dialysis catheter, cardiac catheterization in 2016, colonoscopy, cardiac catheterization 2008, CABG times 06/2008 [...] Watkins, DO Date Trans: 12/02/2020 05:52 P/ [id number] cc: Rosa M Gonzales M.D. [address] [place], [place] [address] [address]05-06-2021 NoteMR#: [id number] I [facility] Pt. Name: Vishal Duke Admitted: 08/02/2020 [...] is on immunosuppression for kidney transplant in 2019. He received his Moderna vaccine x2 in June. The patient's son and cjlfhekg-iv-fmk were symptomatic just before him. The patient was complaining of fatigue and mild body aches. The patient also developed cough and mild shortness of breath. His dyspnea was initially with exertion, but progressed to minimal activity. After he spoke with his tobacco checkout clerk, he decreased his Myfortic dose and [...] Ferreira M.D. Date Trans: 08/20/2020 05:24 A/patrizia DN_JN:[id number] cc: Rosa M Gonzales M.D. [address] [place] [address]Evaluation + Plan note Future Appointments Appointment Date:01/11/2024 09:30:00 AM Scheduled Provider: Location:[facility] Appointment Type:Surgery FT Appointment Date:01/29/2024 10:30:00 AM Scheduled Provider:Reji BROWER MD Location:[facility] Appointment Type:URO Office Visit [facility] Evaluation + Plan note Future Appointments Appointment Date:03/04/2024 01:30:00 PM Scheduled Provider:Reji BROWER MD Location:[facility] Appointment Type:URO Office Visit [facility] evaluation note* Diagnosis Encounter for immunization- Primary Tinea corporis Dermatophytosis of the body Type 2 diabetes mellitus without complications ([facility]/HCC) documented in this encounter [facility]* Diagnosis Polycystic kidney disease, autosomal dominant- Primary Congenital polycystic kidney, autosomal dominant Kidney transplant status (CMS/HCC) Hypokalemia Hypopotassemia Ischemic cardiomyopathy (CMS/HCC) Other specified forms of chronic ischemic heart disease Add Pulmonary fibrosis, unspecified (J84.10) Atherosclerosis of [place] coronary artery of [place] heart with angina pectoris (CMS/HCC) Add Atherosclerosis of aorta (I70.0) Atherosclerosis of aorta Add 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 disease involving [place] coronary artery of [place] heart with unstable angina pectoris (CMS/HCC) Essential hypertension (CMS/HCC) Unspecified essential hypertension Status post insertion of drug-eluting stent into left anterior descending (LAD) artery for coronary artery disease Immunosuppression (CMS/HCC) History of kidney transplant (CMS/HCC) Kidney replaced by transplant Wellness examination- Primary Simple chronic bronchitis (CMS/HCC) Simple chronic bronchitis Chronic systolic congestive heart failure (CMS/HCC) Coronary artery disease involving [place] coronary artery of [place] heart with unstable angina pectoris (CMS/HCC) Essential hypertension (CMS/HCC) Unspecified essential hypertension Gastroesophageal reflux disease without esophagitis Esophageal reflux PKD (polycystic kidney disease) Congenital polycystic kidney, unspecified type Immunosuppression (CMS/HCC) History of kidney transplant (CMS/HCC) Kidney replaced by transplant Mixed hyperlipidemia (CMS/HCC) Mixed hyperlipidemia Atherosclerotic heart disease of [place] coronary artery with unspecified angina pectoris (CMS/HCC) Ventricular fibrillation (CMS/HCC) Ventricular fibrillation Left lateral epicondylitis- Primary Simple chronic bronchitis (CMS/HCC) Simple chronic bronchitis Chronic systolic congestive heart failure (CMS/HCC) Coronary artery disease involving [place] coronary artery of [place] heart with unstable angina pectoris (CMS/HCC) Essential [...] Cardiomyopathy, unspecified (CMS/HCC) documented in this encounter [facility] HealthcareEvaluation note* Diagnosis Polycystic kidney disease, autosomal dominant- Primary Congenital polycystic kidney, autosomal dominant Kidney transplant status (CMS/HCC) Hypokalemia Hypopotassemia Ischemic cardiomyopathy (CMS/HCC) Other specified forms of chronic ischemic heart disease Add Pulmonary fibrosis, unspecified (J84.10) Atherosclerosis of [place] coronary artery of [place] heart with angina pectoris (CMS/HCC) Add Atherosclerosis of aorta (I70.0) Atherosclerosis of aorta Add 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 disease involving [place] coronary artery of [place] heart with unstable angina pectoris (CMS/HCC) Essential hypertension (CMS/HCC) Unspecified essential hypertension Status post insertion of drug-eluting stent into left anterior descending (LAD) artery for coronary artery disease Immunosuppression (CMS/HCC) History of kidney transplant (CMS/HCC) Kidney replaced by transplant Wellness examination- Primary Simple chronic bronchitis (CMS/HCC) Simple chronic bronchitis Chronic systolic congestive heart failure (CMS/HCC) Coronary artery disease involving [place] coronary artery of [place] heart with unstable angina pectoris (CMS/HCC) Essential hypertension (CMS/HCC) Unspecified essential hypertension Gastroesophageal reflux disease without esophagitis Esophageal reflux PKD (polycystic kidney disease) Congenital polycystic kidney, unspecified type Immunosuppression (CMS/HCC) History of kidney transplant (CMS/HCC) Kidney replaced by transplant Mixed hyperlipidemia (CMS/HCC) Mixed hyperlipidemia Atherosclerotic heart disease of [place] coronary artery with unspecified angina pectoris (CMS/HCC) Ventricular fibrillation (CMS/HCC) Ventricular fibrillation Left lateral epicondylitis- Primary Simple chronic bronchitis (CMS/HCC) Simple chronic bronchitis Chronic systolic congestive heart failure (CMS/HCC) Coronary artery disease involving [place] coronary artery of [place] heart with unstable angina pectoris (CMS/HCC) Essential hypertension (CMS/HCC) Unspecified essential hypertension Status post insertion of drug-eluting stent into left anterior descending (LAD) artery for coronary artery disease Immunosuppression (CMS/HCC) Mixed hyperlipidemia (CMS/HCC) Mixed hyperlipidemia Herpes zoster without complication- Primary Elevated fasting glucose Impaired fasting glucose documented in this encounter [facility] [...] he saw his regular [facility] by his central melt specialist to agreed with and endorsed the care we rendered. The device was interrogated it in their office and it appears to be functioning appropriately. Because of all the above he is pleased with his care. He'll be following up henceforth with the [facility] central melt specialist and we advised him were always happy to participate in his care if he needs help. I believe his ICD will be interrogated and managed through their office. We also note thathis renal transplant was not injured as a result of the hospitalization and contrast administrationand/or antibiotic therapy because of this he is pleased. [facility] 250 DO Work Phone: Hospital course Narrative No data available for this section [facility] Hospital Discharge instructions No data available for this section [facility] Progress note No data available for this section [facility] Chief Complaint VISHAL DUKE is being seen for follow-up of a hospitalization for [facility] D/C 12/11/2020 ICD insert. Family History Unknown [...] section and content) DATE CREATED AUTHOR 04/25/2021 [place] DATE CREATED AUTHOR AUTHOR'S ORGANIZ ATION 05/10/2021 [facility] DATE CREATED AUTHOR AUTHOR'S ORGANIZ ATION 07/18/2021 [facility] DATE CREATED AUTHOR AUTHOR'S ORGANIZ ATION 01/17/2022 [facility] dical Specialist DATE CREATED AUTHOR AUTHOR'S ORGANIZ ATION 08/25/2022 [facility] p[facility] DATE CREATED AUTHOR AUTHOR'S ORGANIZ ATION 01/19/2024 [facility] DATE CREATED AUTHOR AUTHOR'S ORGANIZ ATION 01/31/2024 [facility] EPIC DATE CREATED AUTHOR AUTHOR'S ORGANIZ ATION 03/06/2024 [facility] DATE CREATED AUTHOR AUTHOR'S ORGANIZ ATION 03/07/2024 [facility] DATE CREATED AUTHOR AUTHOR'S ORGANIZ ATION 03/19/2024 [facility] Care Team (unrecognized sect ion and content) Visitor Service Assistant Relationship Specialty Start Date End Date Rosa M Gonzales MD [address] [facility] [place] [address] PCP - ACO Reach 09/08/22 Rosa M Gonzales MD [address] [place] [address] PCP - General Family Medicine 10/25/22 Rosa M Platt, TATO Registered Nurse Family Medicine 03/01/23 Visitor Service Assistant Relationship Specialty Start Date End Date Rosa M Gonzales MD [address] [place] [address] PCP - General Family Medicine 10/25/22 Rosa M Gonzales MD [address] [place] [address] PCP - ACO Reach 08/16/23 Rsoa M Platt, TATO Registered Nurse Family Medicine 03/01/23 Visitor Service Assistant Relationship Specialty Start Date End Date Rosa M Gonzales MD [address] [address] PCP - General Family Medicine 10/25/22 Rosa M Gonzales MD [address] [address] PCP - ACO Reach 08/16/23 Rosa M Platt, TATO Registered Nurse Family Medicine 03/01/23 Visitor Service Assistant Relationship Specialty Start Date End Date Rosa M Gonzales MD [address] [address] PCP - General Family Medicine 10/25/22 Rosa M Gonzales MD [address] [place] [address] PCP - ACO Reach 08/16/23 Rosa M Platt, TATO Registered Nurse Family Medicine 03/01/23 Visitor Service Assistant Relationship Specialty Start Date End Date Rosa M Gonzales MD [address] [place] [address] PCP - General Family Medicine 10/25/22 Rosa M Gonzales MD [address] [place] [address] PCP - ACO Reach 08/16/23 Rosa M Platt, RN Registered Nurse Family Medicine 03/01/23 Visitor Service Assistant Relationship Specialty Start Date End Date Rosa M Gonzales MD [address] [place] [address] PCP - General Family Medicine 10/25/22 Rosa M Gonzales MD [address] [place] [address] PCP - ACO Reach 08/16/23 Rosa M Platt, RN Registered Nurse Family Medicine 03/01/23 Visitor Service Assistant Relationship Specialty Start Date End Date Rosa M Gonzales MD [address] [place] [address] PCP - General Family Medicine 10/25/22 Rosa M Gonzales MD [address] [place] [address] PCP - ACO Reach 08/16/23 Rosa M Platt, TATO Registered Nurse Family Medicine 03/01/23 Visitor Service Assistant Relationship Specialty Start Date End Date Rosa M Gonzales MD [address] [place] [address] PCP - General Family Medicine 10/25/22 Rosa M Gonzales MD [address] [address] PCP - ACO Reach 08/16/23 Rosa M Platt, RN Registered Nurse Family Medicine 03/01/23 Visitor Service Assistant Relationship Specialty Start Date End Date Rosa M Gonzales MD [address] [place] [address] PCP - General Family Medicine 10/25/22 Rosa M Gonzales MD [address] [place], [place] [id number] PCP - ACO Reach 08/16/23 Rosa M Platt RN Registered Nurse Family Medicine 03/01/23 Reason for [...] BE BASED ON THE PRIMARY CLINICAL RECORDS. [facility] [email or web address] provides no warranty or guarantee of the accuracy or completeness of information in this document.
[2024-04-04 07:48] LABS: Basophils Percent Auto 0.6 % (0.2-2.0); Eosinophils Absolute Auto 0.1 10^3/uL (0.0-0.7); Eosinophils Percent Auto 1.4 % (0.9-7.0); Hematocrit 47.3 % (42.0-54.0); Hemoglobin 15.7 g/dL (14.0-18.0); Immature Granulocytes Abs Auto 0.02 10^3/uL (0.00-0.03); Immature Granulocytes Pct Auto 0.3 % (0.0-0.5); Lymphocytes Absolute Auto 1.2 10^3/uL (1.2-3.8); Lymphocytes Percent Auto 18.6 % (20.5-60.0); Mean Corpuscular HGB Conc 33.2 g/dL (29.9-35.2); Mean Corpuscular Hemoglobin 31.1 pg (25.9-34.0); Mean Corpuscular Volume 93.7 fL (80.0-94.0); Mean Platelet Volume 10.2 fL (9.5-13.5); Monocytes Absolute Auto 0.6 10^3/uL (0.3-0.8); Monocytes Percent Auto 10.1 % (1.7-12.0); Neutrophils Absolute Auto 4.3 10^3/uL (1.4-6.5); Platelet Count 230 10^3/uL (150-450); Red Blood Count 5.05 10^6/uL (4.70-6.10); Red Cell Distribution Width 13.9 % (11.0-15.0); White Blood Count 6.2 10^3/uL (4.0-11.0)
[2024-04-04 08:10] LABS: Alanine Aminotransferase 33 U/L (16-63); Albumin Globulin Ratio 1.2; Albumin Level 3.7 g/dL (3.4-5.0); Alkaline Phosphatase 108 U/L (46-116); Anion Gap 13.3; Aspartate Amino Transferase 17 U/L (15-37); BUN Creatinine Ratio 14.3; Bilirubin Direct 0.1 mg/dL (0.0-0.2); Bilirubin Total 0.6 mg/dL (0.2-1.0); Calcium 9.3 mg/dL (8.5-10.1); Chloride 106 mmol/L (98-107); Estimated GFR (African America >60 (>=60 mL/min/1.73m^2); Estimated GFR (Non-African Ame 54 (>=60 mL/min/1.73m^2); Glucose 120 mg/dL (74-106); Magnesium 1.7 mg/dL (1.8-2.4); Phosphorus 4.3 mg/dL (2.6-4.7); Potassium 4.3 mmol/L (3.5-5.1); Sodium 144 mmol/L (136-145); Total Protein 6.7 g/dL (6.4-8.2); Uric Acid 6.4 mg/dL (3.5-7.2)
[2024-04-07 09:07] LABS: Tacrolimus (FK506), Blood 6.7 ng/mL (2.0-20.0)
== END 2024-04-04 07:19 | disposition home or self-care (01) ==
LOC: LAB 07:20
PROVIDERS: PCP Family Medicine; Visit Provider Urology
DX: R73.01 Impaired fasting glucose (principal); Z94.0 Kidney transplant status
CPT/HCPCS: 36415; 80053; 80197; 82248; 83735; 84100; 84550; 85025

== ENCOUNTER 2024-05-07 09:02 | Outpatient (OUT) | payer MEDICARE, SELFPAY ==
[2024-05-07 09:23] LABS: Basophils Percent Auto 0.6 % (0.2-2.0); Eosinophils Absolute Auto 0.1 10^3/uL (0.0-0.7); Eosinophils Percent Auto 1.6 % (0.9-7.0); Hematocrit 46.2 % (42.0-54.0); Hemoglobin 15.1 g/dL (14.0-18.0); Immature Granulocytes Abs Auto 0.02 10^3/uL (0.00-0.03); Immature Granulocytes Pct Auto 0.3 % (0.0-0.5); Mean Corpuscular HGB Conc 32.7 g/dL (29.9-35.2); Mean Corpuscular Hemoglobin 30.6 pg (25.9-34.0); Mean Corpuscular Volume 93.5 fL (80.0-94.0); Mean Platelet Volume 10.2 fL (9.5-13.5); Monocytes Absolute Auto 0.6 10^3/uL (0.3-0.8); Monocytes Percent Auto 9.3 % (1.7-12.0); Neutrophils Absolute Auto 4.5 10^3/uL (1.4-6.5); Neutrophils Percent Auto 72.2 % (43.0-75.0); Platelet Count 208 10^3/uL (150-450); Red Blood Count 4.94 10^6/uL (4.70-6.10); Red Cell Distribution Width 13.2 % (11.0-15.0); White Blood Count 6.3 10^3/uL (4.0-11.0)
[2024-05-07 09:49] LABS: Alanine Aminotransferase 33 U/L (16-63); Albumin Globulin Ratio 1.3; Albumin Level 3.8 g/dL (3.4-5.0); Alkaline Phosphatase 97 U/L (46-116); Anion Gap 11.6; Aspartate Amino Transferase 20 U/L (15-37); BUN Creatinine Ratio 17.3; Bilirubin Direct 0.2 mg/dL (0.0-0.2); Bilirubin Total 0.6 mg/dL (0.2-1.0); Carbon Dioxide 28.8 mmol/L (21.0-32.0); Chloride 107 mmol/L (98-107); Estimated GFR (African America >60 (>=60 mL/min/1.73m^2); Estimated GFR (Non-African Ame 52 (>=60 mL/min/1.73m^2); Globulin 2.9 g/dL; Glucose 149 mg/dL (74-106); Magnesium 1.7 mg/dL (1.8-2.4); Phosphorus 3.8 mg/dL (2.6-4.7); Potassium 4.4 mmol/L (3.5-5.1); Sodium 143 mmol/L (136-145); Total Protein 6.7 g/dL (6.4-8.2); Uric Acid 7.4 mg/dL (3.5-7.2)
[2024-05-09 16:08] LABS: Tacrolimus (FK506), Blood 6.2 ng/mL (2.0-20.0)
== END 2024-05-07 09:03 | disposition home or self-care (01) ==
LOC: LAB 09:04
PROVIDERS: PCP Family Medicine
DX: R73.01 Impaired fasting glucose (principal); Z94.0 Kidney transplant status
CPT/HCPCS: 36415; 80053; 80197; 82248; 83735; 84100; 84550; 85025

== ENCOUNTER 2024-06-07 08:31 | Outpatient (OUT) | payer MEDICARE, SELFPAY ==
[2024-06-07 09:18] LABS: Estimated Average Glucose 131 mg/dL; Glycohemoglobin A1C 6.2 % (4.5-6.2)
[2024-06-07 09:24] LABS: Basophils Absolute Auto 0.1 10^3/uL (0.0-0.1); Basophils Percent Auto 0.7 % (0.2-2.0); Eosinophils Absolute Auto 0.1 10^3/uL (0.0-0.7); Eosinophils Percent Auto 1.7 % (0.9-7.0); Hematocrit 50.6 % (42.0-54.0); Hemoglobin 16.7 g/dL (14.0-18.0); Immature Granulocytes Abs Auto 0.02 10^3/uL (0.00-0.03); Immature Granulocytes Pct Auto 0.3 % (0.0-0.5); Lymphocytes Percent Auto 14.4 % (20.5-60.0); Mean Corpuscular Hemoglobin 30.6 pg (25.9-34.0); Mean Corpuscular Volume 92.7 fL (80.0-94.0); Mean Platelet Volume 10.5 fL (9.5-13.5); Monocytes Absolute Auto 0.7 10^3/uL (0.3-0.8); Monocytes Percent Auto 9.8 % (1.7-12.0); Neutrophils Absolute Auto 5.1 10^3/uL (1.4-6.5); Neutrophils Percent Auto 73.1 % (43.0-75.0); Platelet Count 239 10^3/uL (150-450); Red Blood Count 5.46 10^6/uL (4.70-6.10); Red Cell Distribution Width 12.9 % (11.0-15.0)
[2024-06-07 09:33] LABS: Bilirubin Direct 0.1 mg/dL (0.0-0.2)
[2024-06-07 09:52] LABS: Alanine Aminotransferase 38 U/L (16-63); Albumin Globulin Ratio 1.2; Albumin Level 3.9 g/dL (3.4-5.0); Alkaline Phosphatase 113 U/L (46-116); Anion Gap 12.2; Aspartate Amino Transferase 23 U/L (15-37); BUN Creatinine Ratio 12.7; Bilirubin Total 0.6 mg/dL (0.2-1.0); Calcium 9.4 mg/dL (8.5-10.1); Carbon Dioxide 28.3 mmol/L (21.0-32.0); Chloride 106 mmol/L (98-107); Chol HDL Ratio 2.6; Cholesterol 111 mg/dL (<=200); Estimated GFR (African America >60 (>=60 mL/min/1.73m^2); Estimated GFR (Non-African Ame 54 (>=60 mL/min/1.73m^2); Globulin 3.2 g/dL; Glucose 117 mg/dL (74-106); HDL Cholesterol 42 mg/dL (40-60); Magnesium 1.6 mg/dL (1.8-2.4); Phosphorus 3.5 mg/dL (2.6-4.7); Potassium 4.5 mmol/L (3.5-5.1); Sodium 142 mmol/L (136-145); Total Protein 7.1 g/dL (6.4-8.2); Triglycerides 169 mg/dL (<=150); Uric Acid 6.1 mg/dL (3.5-7.2); VLDL CHOLESTEROL 33.8 mg/dL
[2024-06-08 08:08] LABS: Sex Horm Binding Glob, Serum 34.4 nmol/L (19.3-76.4)
[2024-06-10 10:07] LABS: BKV DNA, Quant PCR, Plasma Negative (Negative)
[2024-06-12 22:10] LABS: Free Testosterone(Direct) 5.6 pg/mL (6.6-18.1); Testosterone 370 ng/dL (264-916)
== END 2024-06-07 08:32 | disposition home or self-care (01) ==
PROVIDERS: PCP Family Medicine
DX: Z94.0 Kidney transplant status (principal); R73.01 Impaired fasting glucose
CPT/HCPCS: 36415; 80053; 80061; 80197; 82248; 83036; 83735; 84100; 84270; 84402; 84403; 84550; 85025; 87799

== ENCOUNTER 2024-07-08 08:32 | Outpatient (OUT) | payer MEDICARE, SELFPAY ==
[2024-07-08 09:27] LABS: Basophils Percent Auto 0.5 % (0.2-2.0); Eosinophils Absolute Auto 0.1 10^3/uL (0.0-0.7); Eosinophils Percent Auto 1.6 % (0.9-7.0); Hematocrit 44.7 % (42.0-54.0); Hemoglobin 14.8 g/dL (14.0-18.0); Immature Granulocytes Abs Auto 0.02 10^3/uL (0.00-0.03); Immature Granulocytes Pct Auto 0.3 % (0.0-0.5); Lymphocytes Percent Auto 15.8 % (20.5-60.0); Mean Corpuscular HGB Conc 33.1 g/dL (29.9-35.2); Mean Corpuscular Hemoglobin 30.2 pg (25.9-34.0); Mean Corpuscular Volume 91.2 fL (80.0-94.0); Mean Platelet Volume 10.3 fL (9.5-13.5); Monocytes Absolute Auto 0.7 10^3/uL (0.3-0.8); Monocytes Percent Auto 10.3 % (1.7-12.0); Neutrophils Absolute Auto 4.5 10^3/uL (1.4-6.5); Neutrophils Percent Auto 71.5 % (43.0-75.0); Platelet Count 212 10^3/uL (150-450); Red Cell Distribution Width 13.1 % (11.0-15.0); White Blood Count 6.3 10^3/uL (4.0-11.0)
[2024-07-08 09:29] LABS: Alanine Aminotransferase 31 U/L (16-63); Albumin Globulin Ratio 1.2; Albumin Level 3.7 g/dL (3.4-5.0); Alkaline Phosphatase 106 U/L (46-116); Anion Gap 11.6; Aspartate Amino Transferase 22 U/L (15-37); BUN Creatinine Ratio 17.1; Bilirubin Direct 0.1 mg/dL (0.0-0.2); Bilirubin Total 0.5 mg/dL (0.2-1.0); Calcium 9.1 mg/dL (8.5-10.1); Carbon Dioxide 29.8 mmol/L (21.0-32.0); Chloride 107 mmol/L (98-107); Estimated GFR (African America >60 (>=60 mL/min/1.73m^2); Estimated GFR (Non-African Ame >60 (>=60 mL/min/1.73m^2); Glucose 144 mg/dL (74-106); Magnesium 1.5 mg/dL (1.8-2.4); Phosphorus 3.6 mg/dL (2.6-4.7); Potassium 4.4 mmol/L (3.5-5.1); Sodium 144 mmol/L (136-145); Total Protein 6.7 g/dL (6.4-8.2); Uric Acid 5.3 mg/dL (3.5-7.2)
== END 2024-07-08 08:33 | disposition home or self-care (01) ==
LOC: LAB 08:34
PROVIDERS: PCP Family Medicine; Visit Provider Nurse Practitioner Family
DX: Z94.0 Kidney transplant status (principal); R73.01 Impaired fasting glucose
CPT/HCPCS: 36415; 80053; 80197; 82248; 83735; 84100; 84550; 85025

== ENCOUNTER 2024-08-09 08:41 | Outpatient (OUT) | payer MEDICARE, SELFPAY ==
[2024-08-09 09:37] LABS: Basophils Percent Auto 0.6 % (0.2-2.0); Eosinophils Absolute Auto 0.1 10^3/uL (0.0-0.7); Eosinophils Percent Auto 1.4 % (0.9-7.0); Hemoglobin 15.2 g/dL (14.0-18.0); Immature Granulocytes Abs Auto 0.02 10^3/uL (0.00-0.03); Immature Granulocytes Pct Auto 0.3 % (0.0-0.5); Lymphocytes Absolute Auto 1.1 10^3/uL (1.2-3.8); Lymphocytes Percent Auto 16.3 % (20.5-60.0); Mean Corpuscular HGB Conc 32.3 g/dL (29.9-35.2); Mean Corpuscular Hemoglobin 29.2 pg (25.9-34.0); Mean Corpuscular Volume 90.2 fL (80.0-94.0); Mean Platelet Volume 10.4 fL (9.5-13.5); Monocytes Absolute Auto 0.7 10^3/uL (0.3-0.8); Monocytes Percent Auto 10.4 % (1.7-12.0); Neutrophils Absolute Auto 4.6 10^3/uL (1.4-6.5); Platelet Count 258 10^3/uL (150-450); Red Blood Count 5.21 10^6/uL (4.70-6.10); Red Cell Distribution Width 13.4 % (11.0-15.0); White Blood Count 6.4 10^3/uL (4.0-11.0)
[2024-08-09 10:38] LABS: Alanine Aminotransferase 26 U/L (16-63); Albumin Globulin Ratio 1.3; Alkaline Phosphatase 101 U/L (46-116); Anion Gap 13.7; Aspartate Amino Transferase 20 U/L (15-37); BUN Creatinine Ratio 15.4; Bilirubin Direct 0.2 mg/dL (0.0-0.2); Bilirubin Total 0.7 mg/dL (0.2-1.0); Calcium 9.4 mg/dL (8.5-10.1); Carbon Dioxide 27.6 mmol/L (21.0-32.0); Chloride 106 mmol/L (98-107); Estimated GFR (African America >60 (>=60 mL/min/1.73m^2); Estimated GFR (Non-African Ame 59 (>=60 mL/min/1.73m^2); Glucose 131 mg/dL (74-106); Magnesium 1.9 mg/dL (1.8-2.4); Phosphorus 3.8 mg/dL (2.6-4.7); Potassium 4.3 mmol/L (3.5-5.1); Sodium 143 mmol/L (136-145); Uric Acid 5.7 mg/dL (3.5-7.2)
== END 2024-08-09 08:42 | disposition home or self-care (01) ==
LOC: LAB 08:43
PROVIDERS: PCP Family Medicine; Visit Provider Nurse Practitioner Family
DX: R73.01 Impaired fasting glucose (principal); Z94.0 Kidney transplant status
CPT/HCPCS: 36415; 80053; 80197; 82248; 83735; 84100; 84550; 85025

== ENCOUNTER 2024-09-10 08:15 | Outpatient (OUT) | payer MEDICARE, SELFPAY ==
--- OUTSIDE RECORDS SUMMARY | 2024-06-19 11:40 | XMS_ITS ---
Author Name Auto Generated Organization OH[facility] Care Team Providers Care Casserole Preparer Name Role Phone ALICIA ADAME Attending Unavailable MUKUND GONZALES Attending Unavailable EFREN CENTENO Attending Unavailable CRISTÓBAL, KALYAN Attending Unavailable CRISTÓBAL, KALYAN Attending Unavailable EFREN CENTENO Attending Unavailable PETGASTON, ALICIA Seo Attending Unavailable JANET, MUKUND Attending Unavailable DEEP, ALICIA Seo Attending Unavailable Sarmaryjo, Roxana Butler Attending Unavaila ble Sarmini, Roxana Butler Attending Unavaila ble Reji LOCKWOOD Attending Unavailable Rjei LOCKWOOD Attending Unavailable Sarmini, Roxana Butler Admitting Unavaila ble Sarmini, Schmidt Carrie Referring Unavaila ble Sarmini, Roxana Butler Attending Unavaila TEAGAN Clark Referring Unavailable ELTAHAWY, FEDERICO Attending Unavailable ELJONNY, FEDERICO Attending Unavailable DIGNAZCARLOS, MACRINA Attending Unavailable SARAI, MACRINA Attending Unavailable TEAGAN VILLANUEVA Referring Unavailable PROBLEMS DATE TYPE CONDITION / CODE ATTENDING STATUS [facility] 06/11/2024 Admitting Diagnosis Other abnormality of red blood cells / R71.8(ICD-10) NA Active [facility] 05/14/2024 Admitting Diagnosis Encounter for adjustment and management of automatic implantable cardiac defibrillator / Z45.02(ICD-10) MIRIAM [facility] 05/04/2022 Admitting Diagnosis Kidney transplant status / Z94.0(ICD-10) MACRINA MOON Active [facility] 04/11/2024 Admitting Diagnosis Impaired fasting glucose / R73.01(ICD-10) MACRINA MOON Active [facility] 06/05/2023 Admitting Diagnosis Chest pain, unspecified / R07.9(ICD-10) FEDERICO CHESTER Active [facility] 12/05/2022 Admitting Diagnosis Gastro-esophageal reflux disease without esophagitis / K21.9(ICD-10) FEDERICO CHESTER Active [facility] 11/20/2023 Admitting Diagnosis Atherosclerotic heart disease of kake coronary artery without angina pectoris / I25.10(ICD-10) STEPHANIE Active [facility] 10/06/2023 Admitting Diagnosis Other specified diabetes mellitus without complications / E13.9(ICD-10) MACRINA MOON Active [facility] PROCEDURES No Procedure Records Found RESULTS ORDERS ONLY Observed: 06/12/2024 12:00 AM Status: COMPLETED Source: [facility] [id number] Vishal Duke 1960 [facility] Provider Department Center 06/12/2024 1759-ZACHARY [facility]TER [facility] 2A Second Fl Family History Problem Relation Age of Onset Alzheimer's disease Mother Coronary artery disease Father Family Status - Relation Status Age at Mother Father PROGRESS Observed: 06/11/2024 11:47 AM Status: COMPLETED Source: [facility] Reviewed over the phone with Dr. Basurto patients outside labs hemoglobin 16.7 and hematocrit 51, and TAC level 8.3. Current IS tacrolimus IR 0.5 mg BID. New orders for phlebotomy, remove 500 and give 500 ml NS IV. Will watch TAC level for now, no dose changes. Updated patient to the above, verbalized understanding. Will come to [facility] to have this done, aware BOP will call to schedule. DOCUMENTATION Observed: 06/11/2024 12:00 AM Status: COMPLETED Source: [facility] [id number] Vishal Duke 1960 [facility] Provider Department [place] 06/11/2024 [id number]-TWLE-QMIUHOLLI BLAS None Family History Problem Relation Age of Onset Alzheimer's disease Mother Coronary artery disease Father Family Status - Relation Status Age at Mother Father PROGRESS Observed: 04/11/2024 10:30 AM Status: COMPLETED Source: [facility] Transplant Clinic Patient : Vishal Duke; 63 y.o. Reason for Visit: History of renal transplant. SUBJECTIVE: History Of Present Illness: Patient is a 63-year-old male with a history of end-stage renal disease (related to PKD, status post bilateral kake nephrectomies and 01/2023), who is status post DDRT on 08/15/[address] Marquez. CMV +/-. Notable history of IA/cardiac arrest/implanted ICD in 2020 Patient returns regarding post transplant evaluation and immunosuppression regimen management. 04/11/24 Patient return for post transplant follow up He has contracted varicella-zoster/shingles, has affected right aspect of his chest anteriorly, and up into his neck, right ear, chin. Has been treated with antivirals. No longer has active vesicles or drainage. Continues to have skin derangement and paresthesias. Immunosuppression: Tacrolimus 0.5 mg / 0.5 mg Usually taken 9-9:30 AM/9-9:30 PM Myfortic 540 mg (3 tabs x 180mg), PO, BID Review of Systems Negative other than pertinent positives as outlined in the above HPI Chart Reviewed Historical: >>>>>>>>>>>>>>>>>>>>>>>>>>>>>>>>>>>>>>>>>>>>>>>>>>>>>>>>>>>>>>>> 10/06/2023 Patient returns regarding post transplant evaluation and immunosuppression regimen management. Patient denies any acute complaints today. He continues to have respiratory symptoms, with exertion, while exposed to elements outside during warm weather, however tolerates walking on the treadmill at home 0.5 to 1 mile daily. With exertion he feels a burning sensation mid-sternal. Previous open heart surgery in 2007, also cardiac arrest 2020. Now has ICD. He uses inhaler. Endorses orthopnea. Urinary-nocturia x 1, denies dysuria or gross hematuria. Bowel movements-mild constipation, requiring use of stool softener, Colace, 2-3 times weekly Patient denies fever, chills, nausea or vomiting. Continues on Nexium. Follows with dermatology Has had therapeutic phlebotomy in the past Hydration: 8 normal bottles of water per day BP: Lisinopril, metoprolol, Imdur, also Ranexa. Glucose: On long-acting 10 units insulin Mag: Magnesium oxide 400 mg, tablet, 3 times daily. Lipids: Atorvastatin 80 mg p.o. daily Immunosuppression: Tacrolimus 0.5 mg / 0.5 mg Usually taken 9-9:30 AM/9-9:30 PM Myfortic 540 mg (3 tabs x 180mg), PO, BID Prednisone 5 mg p.o. daily (would like to know if he can discontinue) 03/28/2023 Vishal Duke is a 62 y.o. male who End-stage renal disease secondary to Polycystic Kidneys who underwent donor kidney transplant on 08/15/2017 (Kidney). 03/28/23 Pt presents for office visit. Pt is s/p bilateral nephrectomy by Dr Agee on 01/24/23 and all incision well healed without s/s infection. Pt eating / drinking well normal Bms and voiding. 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 he received DDRT on aug 16 2017 , uncomplicated. Hx; IA and had Pacer/Defib Placed. Pt following up [facility] cardiology Pt inpatient for ruptured renal cyst in 11/2020 Pt denies CP or SOB. No N/V/D. No edema. Reviewed immunosuppression meds and patient verbalized understanding. IS: TAC 1mg in am and 0.5mg pm Myfortic 540mg BID Prednisone 5mg every day Labs from 02/23/23: B./S 115 Creat 1.3, K+ 4.3; Mag 1.9, Phos 3.7; Hgb 14.9 WBC 7.9 Discussed adequate hydration. PLan of Care: See Cardiology as scheduled. See PCP. See Dr Agee. Continue meds and labs. follow up 6 months. Chart Reviewed today: 02/09/23 DD Renal transplant on (08/15/2017) by Dr. Marquez. CMV +/-. Patient has recent history of an IA and had Pacer/Defib Placed. Patient here for follow up Nephrectomy Patient states he is feeling good with a 21 pound weight loss since bilat kake kidney's removed. He states that he currently feels much better than pre-op. Patient states that he followed-up with his PCP last week who said his labs were appropriate and notes improved kidney function. Current IS: tacrolimus 0.5 mg twice a day, Myfortic 540 mg twice a day, Prednisone 5 mg every other day Discussion/Plan: -Creatinine: on 01/25/23 0.93 today's still pending -Patient denies any N, V, D, C, CP or SOB. Pt also denies any urinary complaints. -Communicable disease prevention discussed -Incision Healing appropriately from robotic nephrectomy -Continue Current IS - Continue good hydration and as ordered - Continue monthly labs and as ordered - Stent Removed previously - Follow up: [address] Agee and VALE Angelo in March as scheduled It has been explained that the patient is to follow regularly with their PCP in addition to all other providers involved in their care and to follow instructions provided by these respective offices. However, patient will contact the clinic if any transplant-pertaining questions, concerns, new symptoms or problems arise in the interim period. 09/27/22 Pt is on Raghu only with No ARB at this time for HTN. Pt presents for office visit. 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 he received DDRT on aug 16 2017 , uncomplicated. Hx; IA and had Pacer/Defib Placed. Pt following up [facility] cardiology Pt inpatient for ruptured renal cyst in 11/2020 Pt denies CP or SOB. No N/V/D. No edema. Reviewed immunosuppression meds and patient verbalized understanding. Labs from 09/22/22: B./S 106 Creat 1.3, K+ 4.4; Mag 1.9, Phos 3.6 ; Hgb 16.1 WBC 6.5 Discussed adequate hydration. Pt see Dr Agee for polycystic and discussed possible nephrectomy in future pending improved cardiac status. PLan of Care: See Cardiology as scheduled. See PCP. See Dr Agee. Continue meds and labs. follow up 6 months. 06/16/22 Mr. Duke has bilateral large polycystic kidneys. He continues to be bothered by them. Has abdominal discomfort. He has a history of coronary artery disease for which she is being managed. His kidney function is acceptable. He continues to tolerate his immunosuppression. <<<<<<<<<<<<<<<<<<<<<<<<<<<<<<<<<<<<<<<<<<<<<<<<<<<<<<<<<<<<<<<< OBJECTIVE: Visit Vitals BP 117/68 (BP Location: Right arm, Patient Position: Sitting, BP Cuff Size: Adult) Pulse 61 Temp 36.7 ???C (98 ???F) (Temporal) Resp 18 Ht 1.803 m (5' 11 ) Wt 93.4 kg (206 lb) SpO2 95% BMI 28.73 kg/m??? Smoking Status Former BSA 2.16 m??? Wt Readings from Last 3 Encounters: 04/11/24 93.4 kg (206 lb) 03/18/24 92.5 kg (204 lb) 11/20/23 91.6 kg (202 lb) Physical Exam Physical Exam: Constitutional: Vishal D Duke in NO acute distress Psychiatric: Normal affect, alert and oriented HEENT: No scleral icterus Pulmonary: Is not laboring to breathe Cardiovascular: No obvious cyanosis of the extremities Extremities: No significant lower extremity edema Neurologic: Grossly nonfocal Skin: No jaundice Recent Labs I have reviewed the patient's most recent labs as listed below: Chemistry: Lab Results Component Value Date/Time NA 135 (L) 05/18/2023 0916 NA 136 01/24/2023 1258 K 4.0 05/18/2023 0916 K 4.3 01/24/2023 1258 CL 101 05/18/2023 0916 CO2 26 05/18/2023 0916 CO2 19 (L) 12/04/2020 0432 BUN 24 05/18/2023 0916 CREATININE 1.24 05/18/2023 0916 EGFR 65.7 05/18/2023 0916 GLU 127 (H) 12/04/2020 0432 CALCIUM 9.4 05/18/2023 0916 MG 1.6 (L) 05/18/2023 0916 PHOS 3.5 05/18/2023 0916 URICAC 8.6 (H) 12/12/2018 0755 ALBUMIN 4.5 05/18/2023 0916 PROT 6.8 05/18/2023 0916 AST 17 05/18/2023 0916 ALT 22 05/18/2023 0916 BILITOT 0.8 05/18/2023 0916 ALKPHOS 78 05/18/2023 0916 Hematology: Lab Results Component Value Date WBC 8.59 05/18/2023 HGB 16.2 05/18/2023 HCT 48.5 05/18/2023 MCV 89.6 05/18/2023 PLT 254 05/18/2023 FERRITIN 32.0 12/22/2022 Endocrine: Lab Results Component Value Date/Time HGBA1C 6.4 (H) 05/18/2023 0916 Lipids: Lab Results Component Value Date/Time CHOL 120 05/18/2023 0916 TRIG 209 (H) 05/18/2023 0916 LDL 82 05/18/2023 0916 HDL 38 05/18/2023 0916 Viral: Lab Results Component Value Date BKQUANT Not Detected 05/18/2023 BKLOG Not Detected 05/18/2023 Urine studies: Lab Results Component Value Date PROTUR Negative 10/06/2023 PROTUR 30 (A) 12/01/2020 COLORU Yellow 05/18/2023 SPECGRAVU 1.026 (H) 12/01/2020 BILIRUBINUR 0 10/06/2023 BILIRUBINUR Negative 05/18/2023 BLOODU NEGATIVE 12/01/2020 WBCU 0-2 (A) 12/01/2020 LEUKOCYTESU NEGATIVE 12/01/2020 NITRITEU NEGATIVE 12/01/2020 HOME MEDICATIONS & PAST MEDICAL/SOCIAL/FAMILY HISTORY: Home medications Outpatient Encounter Medications as of 04/11/2024 Medication Sig Dispense Refill ??? albuterol (ProAir HFA) 90 mcg/actuation inhaler Inhale 2 puffs every 4 (four) hours if needed for wheezing or shortness of breath. 8.5 g 2 ??? aspirin 81 mg EC tablet Take 81 mg by mouth in the morning. ??? atorvastatin (Lipitor) 80 mg tablet Take 1 tablet (80 mg) by mouth at bedtime. 90 tablet 3 ??? clopidogrel (Plavix) 75 mg tablet Take 1 tablet (75 mg) by mouth once daily as directed. 90 tablet 3 ??? empagliflozin (Jardiance) 10 mg Take 1 tablet (10 mg) by mouth once daily as directed. 90 tablet 3 ??? esomeprazole (NexIUM) [address] capsule Take 1 capsule (40 mg) by mouth before breakfast. Do not open capsule. 90 capsule 3 ??? famotidine (Pepcid) 20 mg tablet Take 20 mg by mouth in the morning and at bedtime. ??? isosorbide mononitrate ER (Imdur) 60 mg 24 hr tablet Take 1 tablet (60 mg) by mouth once daily as directed. Do not crush or chew. 90 tablet 3 ??? lisinopril 5 mg tablet Take 1 tablet (5 mg) by mouth in the morning. 90 tablet 3 ??? magnesium oxide (Mag-Ox) 400 mg tablet 400 mg three times daily. Take 3 tablets ??? metoprolol succinate XL (Toprol-XL) 100 mg 24 hr tablet Take 1 tablet (100 mg) by mouth in the morning. Do not crush or chew. 90 tablet 3 ??? metoprolol succinate XL (Toprol-XL) 200 mg 24 hr tablet Take 0.5 tablets (100 mg) by mouth once daily as directed. Do not crush or chew. 90 tablet 3 ??? mycophenolate (Myfortic) 180 mg EC tablet Take 3 tablets (540 mg) by mouth in the morning and at bedtime. 540 tablet 3 ??? nitroglycerin (Nitrostat) 0.[address] 1 tablet (0.4 mg) under the tongue every 5 (five) minutes if needed for chest pain. 25 tablet 3 ??? ranolazine (Ranexa) 500 mg 12 hr tablet Take 1 tablet (500 mg) by mouth in the morning and at bedtime. Do not crush, chew, or split. 180 tablet 3 ??? tacrolimus (Prograf) 0.5 mg capsule Take 1 capsule (0.5 mg) by mouth in the morning. TDD 1.5mg 30 capsule 11 ??? tacrolimus (Prograf) 1 mg capsule TDD 1.5mg 30 capsule 11 ??? methocarbamol (Robaxin) 500 mg tablet Take 1 tablet (500 mg) by mouth if needed in the morning, at noon, and at bedtime for muscle spasms for up to 5 days. (Patient not taking: Reported on 02/09/2023) 15 tablet 0 ??? predniSONE (Deltasone) 5 mg tablet Take 5 mg by mouth in the morning. No facility-administered encounter medications on file as of 04/11/2024. Allergies Patient has no known allergies. Past Medical History has a past medical history of Coronary artery disease, GERD (gastroesophageal reflux disease), H/O coronary angioplasty, History of cardiac catheterization, Hyperlipidemia, Hypertension, Ischemic congestive cardiomyopathy (CMS/HCC), Kidney transplanted, Myocardial infarction (CMS/HCC), and Polycystic kidney disease. Surgical History has a past surgical history that includes transplant, kidney, open; Cardiac catheterization; Coronary angioplasty with stent; Vascular surgery; Coronary artery bypass graft; and Cardiac pacemaker placement. Social History reports that he quit smoking about 16 years ago. His smoking use included cigarettes. He started smoking about 48 years ago. He has a 31 pack-year smoking history. He has never used smokeless tobacco. He reports current alcohol use of about 1.0 standard drink of alcohol per week. He reports that he does not currently use drugs. Family History Family History Problem Relation Name Age of Onset ??? Alzheimer's disease Mother ??? Coronary artery disease Father ASSESSMENT & VISIT DIAGNOSES: 1. Kidney replaced by transplant 2. Impaired fasting blood sugar PLAN: ESRD, s/p renal transplant. CR 1.33, minimal but persistent increase from prior. Continue with adequate hydration. Continue with monthly labs Immunosuppresion - Currently on tacrolimus, Myfortic 540mg PO BID. Dosing changes, if indicated, will based on multi laboratory testing results. HTN - BP 117/68 mmHg, is well controlled with Metoprolol, Lisinopril and Imdur. Also takes Ranexa from Cardiology Orders Placed This Encounter Procedures ??? Magnesium ??? Hemoglobin A1c ??? Testosterone, free and total, and SHBG ??? BK virus, plasma, quantitative ??? CBC and differential ??? Phosphorus ??? Uric acid ??? Lipid panel ??? Comprehensive metabolic panel ??? Tacrolimus level ??? Bilirubin, direct Requested Prescriptions No prescriptions requested or ordered in this encounter No images are attached to the encounter or orders placed in the encounter. FOLLOW UP: Follow up: In 6 months with CHRIS in renal transplant clinic Macrina Moon CNP Transplant/Urology [facility] FOLLOW-UP Observed: 04/11/2024 10:30 AM Status: COMPLETED Source: [facility] [id number] Vishal Duke 1960 M Date Provider Department Center 04/11/2024 [id number]-MACRYOGMACRINA MOON None Family History Problem Relation Age of Onset Alzheimer's disease Mother Coronary artery disease Father Family Status - Relation Status Age at Mother Father Level of Service:[id number] HI OFFICE/OUTPATIENT ESTABLISHED MOD MDM 30 MIN Reason for Visit and Comments: Kidney Follow-up [[id number]] - Pt has no concerns at this time. PROGRESS Observed: 03/18/2024 11:45 AM Status: COMPLETED Source: [facility] Cardiology Clinic Note Chief Complaint: Patient here [...] extremities. PSYCH: appropriate mood, affect, and judgement. Stress test 06/01/2022: Large area of inferoseptal and anterior apical infarct with small degree of reversible ischemia. Ejection fraction is 43%. No transient ischemic dilation. Normal exercise portion Echocardiogram-[facility] Name: VISHAL DUKE Study Date: 09/06/2022 09:22 AM B/P: / HR: Date of : 1960 Location: [facility] Height: 70 in. Age: 61 year(s) Patient Room : Weight: 213 lb. Gender: Male Patient Status: OutPt BSA: 2.14 m2 Indication: Dyspnea on exertion, CABG x3, S/P Kidney Transplant 08/15/17 Examination: Echocardiogram (Complete), Lumason Contrast Image Quality: Fair Patient Consent: Procedure explained to patient s p @ c 3 Conclusions Left Ventricle: The left ventricle is normal [...] better delineation of the left ventricular apex 11/17/2022 11:49 AM - Interface, Radiology Results In Narrative & Impression CT CHEST WO IV CONTRAST 11/15/2022 9:42 [...] and without contrast. Electronically signed: ONELIA WHITE. Labs 03/05/2024: BUN 20, creatinine 1.37 LFTs normal Triglycerides 202, cholesterol 133, HDL 43, LDL 50 Echocardiogram 11/2023: Global left ventricular systolic function is low normal limits; visually estimated ejection fraction is 50% Normal right ventricular size and systolic function Mild mitral regurgitation Mild aortic valve regurgitation Assessment: 1. Coronary atherosclerosis I25.10: Atherosclerotic heart disease of kake coronary artery without angina pectoris atorvastatin 80 mg tablet - TAKE 1 TABLET BY MOUTH EVERY DAY Qty: 90 tablet(s) Refills: 3 Pharmacy: [facility] #[id number] clopidogrel 75 mg tablet - TAKE 1 TABLET BY MOUTH DAILY Qty: 90 tablet(s) Refills: 3 Pharmacy: [facility] metoprolol succinate ER 200 mg tablet,extended release 24 hr - TAKE 1 TABLET BY MOUTH DAILY Qty: 90 tablet(s) Refills: 3 Pharmacy: [facility] 2. Gastroesophageal reflux disease K21.9: Gastro-esophageal reflux disease without esophagitis GASTROESOPHAGEAL REFLUX DISEASE (GERD): CARE INSTRUCTIONS 3. Coronary arteriosclerosis in kake artery - Continue risk factor modifications including heart healthy diet, exercise on a regular regimen, continue medications as currently prescribed Continue aspirin, Effient, pravastatin, metoprolol Denies any bleeding tendencies I25.10: Atherosclerotic heart disease of kake coronary artery without angina pectoris 4. Hyperlipidemia - Continue statin E78.2: Mixed hyperlipidemia HIGH CHOLESTEROL: CARE INSTRUCTIONS 5. Essential hypertension - Blood pressure well controlled 128/77 Continue lisinopril, metoprolol I10: Essential (primary) hypertension LEARNING ABOUT HIGH BLOOD PRESSURE 6. Chronic kidney disease stage 4 - Follow-up with PCP currently renal function has been stable N18.4: Chronic kidney disease, stage 4 (severe) 7. History of renal transplant - Follow-up with PCP Z94.0: Kidney transplant status 8. Subsequent non-ST segment elevation myocardial infarction - Currently stable no acute concerns I22.2: Subsequent non-ST elevation (NSTEMI) myocardial infarction 9. Ischemic congestive cardiomyopathy - EF 20 to 25% on recent hospitalization Ejection fraction of 41% on stress test 01/11/2021 - 50% on echocardiogram 11/2023 I25.5: Ischemic cardiomyopathy 10. Automatic implantable cardiac defibrillator in situ - Placed in [place] after an episode of V. fib arrest; secondary prevention of sudden cardiac Z95.810: Presence of automatic (implantable) cardiac defibrillator 11. Angina pectoris I20.9: Angina pectoris, unspecified ANGINA: CARE INSTRUCTIONS 12. Coronary arteriosclerosis I25.10: Atherosclerotic heart disease of kake coronary artery without angina pectoris 13. Preoperative evaluation Plan: His lower extremity discomfort sounds clinically like neuropathy; he is to discuss with his family physician Continue guideline directed medical therapy for coronary artery disease and heart failure with reduced ejection fraction Device interrogation per protocol Follow-up with the pulmonology clinic; continue use of inhaler therapy as prescribed, he will discuss the results of his repeat CT scan of the chest with pulmonology Return to clinic in 6 months or sooner should problems arise Federico Chester MD, MPH, [facility], [facility], [facility] Interventional Cardiology Pager Email: [email or web address] OFFICE VISIT Observed: 03/18/2024 11:45 AM Status: COMPLETED Source: [facility] [id number] Vishal Duke 1960 M Date Provider Department Center 03/18/2024 271-FEDERICO CHESTER MICHELLE Blackwood Family History Problem Relation Age of Onset Alzheimer's disease Mother Coronary artery disease Father Family Status - Relation Status Age at Mother Father Level of Service:[id number] HI OFFICE/OUTPATIENT ESTABLISHED LOW [facility] 20 MIN AMBULATORY VISIT SUMMARY Observed: 03/04 3:07 PM Status: F Source: [facility] Ambulatory Visit Summary SRIKANTH VISHAL :1960 Visit Date:12/25/2019 Ambulatory Visit Instructions Your Diagnosis BPH with urinary obstruction Other obstructive and reflux uropathy Your Care Team Primary Care Physician - JANET FRANK, MUKUND Palomino This Is Your Medications List aspirin [...] you for choosing us for your care. REMINDERS Observed: 03/04/2024 3:07 PM Status: F Source: [facility] Reminders From: Marie Lobato To: EU - Administrative; Sent: 03/04/2024 15:07:27 EST Show up: 05/18/2025 15:07:00 EST Subject: Ambulatory Reminder Due Date/Time: 03/01/2026 15:07:00 EST Reminder/Recall Patient needs scheduled with [facility] for a 2 yr f/u with PSA, due back in February of 2026 UROLOGY OFFICE/CLINIC NOTE Observed: 3:02 PM Status: F Source: [facility] Urology Office/Clinic Note Chief Complaint BPH with [...] and history for this patient from Dr. Lockwood. I have reviewed and verified the staff [...] 01/01/18. S/p Robotic assisted bilateral nephrectomy 01/24/23 [facility] by Dr. Bobby Agee. Per pt, kidney weighed 23 lbs. Most recent renal fxn 02/01/24 - BUN 25, Cr 1.45, GFR 49. No proteinuria per UA today. States baseline Cr 1.0-1.1. Was infected at time of recent blood work. 3. Glucosuria (R81: Glycosuria) UA todya >=1000 mg/dL. On . Follow-up With When Contact Information LEONARDA FRANK, Reji Farrell, [facility] [address], [place] [address] [phone] Additional Instructions: 2 yrs w/ PSA Patient Education Benign Prostatic Hyperplasia I, Esther Pan, personally scribed for Dr. Lockwood on 03/04/2024 15:02:32. . Documentation recorded by the scribe, Esther Pan, accurately reflects the services(s) I performed and decisions made by me. Authenticated by Dr. Lockwood on 03/04/2024 15:03:28. Problem List/Past Medical History [...] vaccine, inactivated 01/13/2023 Recorded influenza virus vaccine, inactivated 01/13/2022 Recorded SARS-CoV-2 (COVID-19) [id number] 12/30/2021 Recorded SARS-CoV-2 (COVID-19) mRNA-1273 vaccine 07/21/2021 Recorded 2023-12-22: TPV60 influenza virus vaccine, inactivated 02/01/2021 Recorded SARS-CoV-2 (COVID-19) mRNA-1273 vaccine 01/06/2021 Recorded 2023-12-22: TPV34 SARS-CoV-2 (COVID-19) mRNA-1273 vaccine 07/10/2020 Recorded 2023-12-22: TPV50 SARS-CoV-2 (COVID-19) mRNA-1273 vaccine 06/12/2020 Recorded 2023-12-22: TPV22 influenza virus vaccine, inactivated 01/27/2020 Recorded influenza virus vaccine, inactivated 01/22/2020 Recorded influenza virus vaccine, inactivated 01/16/2020 Recorded influenza virus vaccine, inactivated 02/05/2019 Recorded influenza virus vaccine, inactivated 05/11/2018 Recorded influenza virus vaccine, inactivated 02/16/2018 Recorded influenza virus vaccine, inactivated 06/08/2017 Recorded influenza virus vaccine, inactivated 12/16/2016 Recorded influenza virus vaccine, inactivated 01/28/2015 Recorded influenza, whole 04/27/2012 Recorded Lab Results Ambulatory Point of Care Results Bilirubin Urine Dipstick: Negative (03/04/24 14:18:00) Blood Urine Dipstick: Negative (03/04/24 14:18:00) Glucose Urine Dipstick: 3+ 1000 mg/dl (03/04/24 14:18:00) Ketones Urine Dipstick: Negative (03/04/24 14:18:00) Leukocytes Urine Dipstick: Negative (03/04/24 14:18:00) Nitrite Urine Dipstick: Negative (03/04/24 14:18:00) Protein Urine Dipstick: Negative (03/04/24 14:18:00) Specific Stanley Urine Dipstick: 1.015 (03/04/24 14:18:00) Urine Appearance Urine Dipstick: Clear (03/04/24 14:18:00) Urine Color Urine Dipstick: Yellow (03/04/24 14:18:00) Urobilinogen Urine Dipstick: Normal 0.2-1 EU/dl (03/04/24 14:18:00) pH Urine Dipstick: 6.5 (03/04/24 14:18:00) Result Comment: Electronical ly Signed By: Reji LOCKWOOD MD\.br\Date and Time Signed: 03/04/24 15:03 EST\.br\Electronically Co-Signed By: Esther Pan\.br\Date and Time Co-Signed: 03/04/24 15:02 EST PATIENT EDUCATION Observed: 03/04/2024 3:01 PM Status: F Source: [facility] Patient Education Urology Benign Prostatic Hyperplasia Benign [...] Follow these instructions at home: ??? Take eyry-oqx-qiljltl and prescription medicines only as told by [...] pain. ??? Your symptoms do not get better with treatment. ??? You develop side effects from the medicine you are taking. ??? Your urine becomes very dark or has a bad smell. ??? Your lower abdomen becomes distended and you have trouble passing urine. Get help right away if: ??? You have a fever or chills. ??? You suddenly cannot urinate. ??? You feel light-headed or very dizzy, or you faint. ??? There are large amounts of blood or clots in your urine. ??? Your urinary problems become hard to manage. ??? You develop moderate to severe low back or flank pain. The flank is the side of your body between the ribs and the hip. These symptoms may be an emergency. Get help right away. Call 911. ??? Do not wait to see if the symptoms will go away. ??? Do not drive yourself to the hospital. Summary ??? Benign prostatic hyperplasia (BPH) is an enlarged prostate that is caused by the normal aging process. It is not caused by cancer. ??? An enlarged prostate can press on the urethra. This can make it hard to pass urine. ??? This condition is more likely to develop in men older than 50 years. ??? Get help right away if you suddenly cannot urinate. This information is not intended to replace advice given to you by your health care provider. Make sure you discuss any questions you have with your health care provider. Document Revised: 10/20/2021 Document Reviewed: 10/20/2021 [employer] Patient Education ? 2023 [employer]. PROGRESS Observed: 02/07/2024 11:41 AM Status: COMPLETED Source: [facility] The patient had a testostero ne level of 136 on 02/01/2024. His name was added to the low testosterone list for the month of January 2024. PROGRESS Observed: 02/02/2024 1:54 PM Status: COMPLETED Source: [facility] Per Dr Abiola jain, patient no tified to increase fluids to hydrate well and recheck standing lab order in 2 weeks due to elevated creatinine and Hgb of 17.0. Patient also advised he is currently being treated for shingles and will finish antibiotic on Monday. He states shingle starting to dry up now. He will let us know if anything changes and they aren't healing. DOCUMENTATION Observed: 02/02/2024 12:00 AM Status: COMPLETED Source: [facility] [id number] Vishal Duke 1960 M Date Provider Department Center 02/02/2024 PB AHUMADA None Family History Problem Relation Age of Onset Alzheimer's disease Mother Coronary artery disease Father Family Status - Relation Status Age at Mother Father 36 Observed: 01/29/2024 3:35 PM Status: COMPLETED Source: [facility] Transplant Pharmacist - Drug Information The patient's outside provider contacted pharmacist regarding the use of Valtrex for shingles. No concerns with drug interactions or CrCl (most recent 74 mL/min and no renal adjustment for CrCl over 50 mL/min). Notified nurse coordinators to see if patient should decrease IS. The doctor's office verbalized understanding. The pharmacy team will sign off at this time. Guero Lee, AlexandreD, [facility] Solid Organ Transplant Clinical Pharmacist TELEPHONE Observed: 01/29/2024 12:00 AM Status: COMPLETED Source: [facility] [id number] Vishal Duke Waldemar 1960 M Date Provider Department Center 01/29/2024 [id number] [id number] TXP None Family History Problem Relation Age of Onset Alzheimer's disease Mother Coronary artery disease Father Family Status - Relation Status Age at Mother Father Reason for Visit and Comments: Transplant Pharmacist - Drug Information [[id number]] RESULT LETTER OFFICE Observed: 2:54 PM Status: F Source: [facility] Result Letter Office January 23, 2024 VISHAL DUKE [facility] [place] [address] : 1960 Below is a summary of [...] letter prior to your next due date. [facility] [phone] PROGRESS NOTE-PHYSICIAN Observed: 2023 11:27 AM Status: F Source: [facility] Progress Note-Physician Patient: VISHAL DUKE Age: 63 years Sex: Male : 1960 Associated Diagnoses: None Author: Ivan Orozco Jr., DO Postoperative Information Postoperative disposition: Postoperative disposition: Home. Optimetrix number: Optimetrix number [id number]. Anesthetic utilized: General. Physical Examination Vital Signs [...] Ambulatory Surgery Unit, and To home ). Result Comment: Electronical ly Signed By: Ivan Orozco Jr., DO\.br\Date and Time Signed: 01/11/24 11:27 EDT DISCHARGE INSTRUCTIONS Observed: 024 10:21 AM Status: F Source: [facility] Discharge Instructions VISHAL DUKE :1960 Visit Date:01/11/2024 Inpatient Discharge Instructions Your Care Team Admitting Physician - Roxana Graham MD Referring Physician - Roxana Graham MD Reason for Your Visit SCREEN [...] FRANK, Reji Farrell Where: [facility] [id number]- New Follow Up Appointments after Discharge Follow Up with Gladys FRANK, JNI Saez, [facility] When: Comments: Call for any problems. Office [...] especially if you are over the age of 50. ? women. ? People who are overweight. ? People who have frequent constipation. What are the signs or symptoms? Symptoms of this condition usually develop in the form of GERD symptoms. Symptoms include: ? Heartburn. ? Upset stomach (indigestion). ? Trouble swallowing. ? Coughing or wheezing. Wheezing is making high-pitched whistling sounds when you breathe. ? Sore throat. ? Chest pain. ? Nausea and vomiting. How is this diagnosed? This condition may be diagnosed during testing for GERD. Tests that may be done include: ? X-rays of your stomach or chest. ? An upper gastrointestinal (GI) series. This is an X-ray exam of your GI tract that is taken after you swallow a chalky liquid that shows up clearly on the X-ray. ? Endoscopy. This is a procedure to look into your stomach using a thin, flexible tube that has a tiny camera and light on the end of it. How is this treated? This condition may be treated by: ? Dietary and lifestyle changes to help reduce GERD symptoms. ? Medicines. These may include: ? Gzpt-lte-eiqugnm antacids. ? Medicines that make your stomach empty more quickly. ? Medicines that block the production of stomach acid (H2 blockers). ? Stronger medicines to reduce stomach acid (proton pump inhibitors). ? Surgery to repair the hernia, if other treatments are not helping. If you have no symptoms, you may not need treatment. Follow these instructions at home: Lifestyle and activity ? Do not use any products that contain nicotine or tobacco. These products include cigarettes, chewing tobacco, and vaping devices, such as e-cigarettes. If you need help quitting, ask your health care provider. ? Try to achieve and maintain a healthy body weight. ? Avoid putting pressure on your abdomen. Anything that puts pressure on your abdomen increases the amount of acid that may be pushed up into your esophagus. ? Avoid bending over, especially after eating. ? Raise the head of your bed by putting blocks under the legs. This keeps your head and esophagus higher than your stomach. ? Do not wear tight clothing around your chest or stomach. ? Try not to strain when having a bowel movement, when urinating, or when lifting heavy objects. Eating and drinking ? Avoid foods that can worsen GERD symptoms. These may include: ? Fatty foods, like fried foods. ? [place] fruits, like oranges or lemon. ? Other foods and drinks that contain acid, like orange juice or tomatoes. ? Spicy food. ? Chocolate. ? Eat frequent small meals instead of three large meals a day. This helps prevent your stomach from getting too full. ? Eat slowly. ? Do not lie down right after eating. ? Do not eat 1?2 hours before bed. ? Do not drink beverages with caffeine. These include cola, coffee, cocoa, and tea. ? Do not drink alcohol. General instructions ? Take ntxa-ptn-bbubtyn and prescription medicines only as told by your health care provider. ? Keep all follow-up visits. Your health care provider will want to check that any new prescribed medicines are helping your symptoms. Contact a health care provider if: ? Your symptoms are not controlled with medicines or lifestyle changes. ? You are having trouble swallowing. ? You have coughing or wheezing that will not go away. ? Your pain is getting worse. ? Your pain spreads to your arms, neck, jaw, teeth, or back. ? You feel nauseous or you vomit. Get help right away if: ? You have shortness of breath. ? You vomit blood. ? You have bright red blood in your stools. ? You have black, tarry stools. These symptoms may be an emergency. Get help right away. Call 911. ? Do not wait to see if the symptoms will go away. ? Do not drive yourself to the hospital. Summary ? A hiatal hernia occurs when part of the stomach slides above the muscle that separates the abdomen from the chest. ? A person may be born with a weakness in the hiatus, or a weakness can develop over time. ? Symptoms of a hiatal hernia may include heartburn, trouble swallowing, or sore throat. ? Management of a hiatal hernia includes eating frequent small meals instead of three large meals a day. ? Get help right away if you vomit blood, have bright red blood in your stools, or have black, tarry stools. This information is not intended to replace advice given to you by your health care provider. Make sure you discuss any questions you have with your health care provider. Document Revised: 05/31/2022 Document Reviewed: 05/31/2022 [employer] Patient Education ? 2023 [employer] Endoscopy Care After Procedure Please read the instructions outlined below and refer to this sheet in the next few weeks. These discharge instructions provide you with general information on caring for yourself after you leave the hospital. Your doctor may also give you [...] ATTENTION IF ANY OF THE FOLLOWING OCCUR: ? Excessive nausea (feeling sick to your stomach) and/or vomiting. ? Severe abdominal pain and distention (swelling). ? Trouble swallowing. ? Temperature over 100 F (37.8? C). ? Rectal bleeding or vomiting of blood. Document Released: 11/15/2004 Document Re-Released: 09/25/2006 ExitCare? Patient Information ?2009 [employer]. Colon Polyps Colon polyps are tissue growths inside the colon, which is part of the large intestine. They are one of the types of polyps that can grow in the body. A polyp may be a round bump or a mushroom-shaped growth. You could have one polyp or more than one. Most colon polyps are noncancerous (benign). However, some colon polyps can become cancerous over time. Finding and removing the polyps early can help prevent this. What are the causes? The exact cause of colon polyps is not known. What increases the risk? The following factors may make you more likely to develop this condition: ? Having a family history of colorectal cancer or colon polyps. ? Being older than 45 years of age. ? Being younger than 45 years of age and having a significant family history of colorectal cancer or colon polyps or a genetic condition that puts you at higher risk of getting colon polyps. ? Having inflammatory bowel disease, such as ulcerative colitis or Crohn's disease. ? Having certain conditions passed from parent to child (hereditary conditions), such as: ? Familial adenomatous polyposis (FAP). ? Mendiola syndrome. ? Turcot syndrome. ? Peutz?Jeghers syndrome. ? MUTYH-associated polyposis (MAP). ? Being overweight. ? Certain lifestyle factors. These include smoking cigarettes, drinking too much alcohol, not getting enough exercise, and eating a diet that is high in fat and red meat and low in fiber. ? Having had childhood cancer that was treated with radiation of the abdomen. What are the signs or symptoms? Many times, there are no symptoms. If you have symptoms, they may include: ? Blood coming from the rectum during a bowel movement. ? Blood in the stool (feces). The blood may be bright red or very dark in color. ? Pain in the abdomen. ? A change in bowel habits, such as [...] these instructions at home: Eating and drinking ? Eat foods that are high in fiber, such as fruits, vegetables, and whole grains. ? Eat foods that are high in calcium and vitamin D, such as milk, cheese, yogurt, eggs, liver, fish, and broccoli. ? Limit foods that are high in fat, such as fried foods and desserts. ? Limit the amount of red meat, precooked or cured meat, or other processed meat that you eat, such as hot dogs, sausages, rahman, or meat loaves. ? Limit sugary drinks. Lifestyle ? Maintain a healthy weight, or lose weight if recommended by your health care provider. ? Exercise every day or as told by your health care provider. ? Do not use any products that contain nicotine or tobacco, such as cigarettes, e-cigarettes, and chewing tobacco. If you need help quitting, ask your health care provider. ? Do not drink alcohol if: ? Your health care provider tells you not to drink. ? You are , may be , or are planning to become . ? If you drink alcohol: ? Limit how much you use to: ? 0?1 drink a day for women. ? 0?2 drinks a day for men. ? Know how much alcohol is in your drink. In the [place] one drink equals one 12 oz bottle of beer (355 mL), one 5 oz glass of wine (148 mL), or one 1? oz glass of hard liquor (44 mL). General instructions ? Take owkz-tdj-nknxugq and prescription medicines only as told by your health care provider. ? Keep all follow-up visits. This is important. This includes having regularly scheduled colonoscopies. Talk to your health care provider about when you need a colonoscopy. Contact a health care provider if: ? You have new or worsening bleeding during a bowel movement. ? You have new or increased blood in your stool. ? You have a change in bowel habits. ? You lose weight for no known reason. Summary ? Colon polyps are tissue growths inside the colon, which is part of the large intestine. They are one type of polyp that can grow in the body. ? Most colon polyps are noncancerous (benign), but some can become cancerous over time. ? This condition is diagnosed with a colonoscopy. ? This condition is treated by removing any polyps that are found. Most polyps can be removed during a colonoscopy. This information is not intended to replace advice given to you by your health care provider. Make sure you discuss any questions you have with your health care provider. Document Revised: 07/22/2020 Document Reviewed: 07/22/2020 [employer] Patient Education ? 2023 [employer] Access. Colonoscopy Care After Surgery Please read the instructions outlined below and refer to this sheet in the next few weeks. These discharge instructions provide you with general information on caring for yourself after you leave the hospital. Your doctor may also give you [...] Heavy or fried foods are harder to digest and may make you feel nauseated (sick to [...] severe or gets worse throughout the day. Common Emergency Awareness Tips IS IT A STROKE? Act FAST and Check for these signs: FACE Does the face look uneven? ARM Does one arm drift down? SPEECH Does their speech sound strange? TIME Call at any sign of stroke Heart Attack Signs Chest discomfort: Most heart attacks involve discomfort in the center of the chest and lasts more than a few minutes, or goes away and comes back. It can feel like uncomfortable pressure, squeezing, fullness or pain. Discomfort in upper body: Symptoms can include pain or discomfort in one or both arms, back, neck, jaw or stomach. Shortness of breath: With or without discomfort. Other signs: Breaking out in a cold sweat, nausea, or lightheaded. Remember, MINUTES DO MATTER. If you experience any of these heart attack warning signs, call to get immediate medical attention! Patient Survey You may receive a survey in the mail asking you about your stay with us. We want to hear from you, please share your experience with us by completing your survey. Thank you for choosing [facility]. Klarissa Award Nomination The KLARISSA (Diseases Attacking the Immune SYstem) Award is an international recognition program that honors and celebrates the skillful, compassionate care nurses provide every day. Anyone who experiences or observes amazing care being provided by a nurse is encouraged to submit a nomination. To nominate your nurse, use your smart phone to scan the QR code below. Patient Portal You may access all of your results and other medical record information on our secure patient portal. If you are not signed up for this yet, please contact [facility] at [phone] to get signed up today. Patient Name: VISHAL DUKE I have received this information and my questions have been answered. Patient/Ordnance Technician Name: Patient/Ordnance Technician Signature: Relationship to Patient: Witness Name/Signature: Date: Result Comment: Electronical ly Signed By: Maria Victoria Zaman.adam\Date and Time Signed: 01/11/24 10:21 EDT PATIENT EDUCATION - TEXT Observed: 01/10 10:20 AM Status: C Source: [facility] Patient Education - Text Endoscopy Care After Procedure Please read the instructions outlined below and refer to this sheet in the next few weeks. These discharge instructions provide you with general information on caring for yourself after you leave the hospital. Your doctor may also give you [...] Document Re-Released: 09/25/2006 ExitCare? Patient Information ?2009 [employer]. Colonoscopy Care After Surgery Please read the instructions outlined below and refer to this sheet in the next few weeks. These discharge instructions provide you with general information on caring for yourself after you leave the hospital. Your doctor may also give you [...] Heavy or fried foods are harder to digest and may make you feel nauseated (sick to [...] especially if you are over the age of 50. ? women. ? People who are overweight. ? People who have frequent constipation. What are the signs or symptoms? Symptoms of this condition usually develop in the form of GERD symptoms. Symptoms include: ? Heartburn. ? Upset stomach (indigestion). ? Trouble swallowing. ? Coughing or wheezing. Wheezing is making high-pitched whistling sounds when you breathe. ? Sore throat. ? Chest pain. ? Nausea and vomiting. How is this diagnosed? This condition may be diagnosed during testing for GERD. Tests that may be done include: ? X-rays of your stomach or chest. ? An upper gastrointestinal (GI) series. This is an X-ray exam of your GI tract that is taken after you swallow a chalky liquid that shows up clearly on the X-ray. ? Endoscopy. This is a procedure to look into your stomach using a thin, flexible tube that has a tiny camera and light on the end of it. How is this treated? This condition may be treated by: ? Dietary and lifestyle changes to help reduce GERD symptoms. ? Medicines. These may include: ? Ucmb-mkk-lcevgba antacids. ? Medicines that make your stomach empty more quickly. ? Medicines that block the production of stomach acid (H2 blockers). ? Stronger medicines to reduce stomach acid (proton pump inhibitors). ? Surgery to repair the hernia, if other treatments are not helping. If you have no symptoms, you may not need treatment. Follow these instructions at home: Lifestyle and activity ? Do not use any products that contain nicotine or tobacco. These products include cigarettes, chewing tobacco, and vaping devices, such as e-cigarettes. If you need help quitting, ask your health care provider. ? Try to achieve and maintain a healthy body weight. ? Avoid putting pressure on your abdomen. Anything that puts pressure on your abdomen increases the amount of acid that may be pushed up into your esophagus. ? Avoid bending over, especially after eating. ? Raise the head of your bed by putting blocks under the legs. This keeps your head and esophagus higher than your stomach. ? Do not wear tight clothing around your chest or stomach. ? Try not to strain when having a bowel movement, when urinating, or when lifting heavy objects. Eating and drinking ? Avoid foods that can worsen GERD symptoms. These may include: ? Fatty foods, like fried foods. ? [place] fruits, like oranges or lemon. ? Other foods and drinks that contain acid, like orange juice or tomatoes. ? Spicy food. ? Chocolate. ? Eat frequent small meals instead of three large meals a day. This helps prevent your stomach from getting too full. ? Eat slowly. ? Do not lie down right after eating. ? Do not eat 1?2 hours before bed. ? Do not drink beverages with caffeine. These include cola, coffee, cocoa, and tea. ? Do not drink alcohol. General instructions ? Take gvbj-qtl-kkgukgw and prescription medicines only as told by your health care provider. ? Keep all follow-up visits. Your health care provider will want to check that any new prescribed medicines are helping your symptoms. Contact a health care provider if: ? Your symptoms are not controlled with medicines or lifestyle changes. ? You are having trouble swallowing. ? You have coughing or wheezing that will not go away. ? Your pain is getting worse. ? Your pain spreads to your arms, neck, jaw, teeth, or back. ? You feel nauseous or you vomit. Get help right away if: ? You have shortness of breath. ? You vomit blood. ? You have bright red blood in your stools. ? You have black, tarry stools. These symptoms may be an emergency. Get help right away. Call 911. ? Do not wait to see if the symptoms will go away. ? Do not drive yourself to the hospital. Summary ? A hiatal hernia occurs when part of the stomach slides above the muscle that separates the abdomen from the chest. ? A person may be born with a weakness in the hiatus, or a weakness can develop over time. ? Symptoms of a hiatal hernia may include heartburn, trouble swallowing, or sore throat. ? Management of a hiatal hernia includes eating frequent small meals instead of three large meals a day. ? Get help right away if you vomit blood, have bright red blood in your stools, or have black, tarry stools. This information is not intended to replace advice given to you by your health care provider. Make sure you discuss any questions you have with your health care provider. Document Revised: 05/31/2022 Document Reviewed: 05/31/2022 [employer] Patient Education ? 2023 [employer]Oncology Colon Polyps Colon polyps are tissue growths inside the colon, which is part of the large intestine. They are one of the types of polyps that can grow in the body. A polyp may be a round bump or a mushroom-shaped growth. You could have one polyp or more than one. Most colon polyps are noncancerous (benign). However, some colon polyps can become cancerous over time. Finding and removing the polyps early can help prevent this. What are the causes? The exact cause of colon polyps is not known. What increases the risk? The following factors may make you more likely to develop this condition: ? Having a family history of colorectal cancer or colon polyps. ? Being older than 45 years of age. ? Being younger than 45 years of age and having a significant family history of colorectal cancer or colon polyps or a genetic condition that puts you at higher risk of getting colon polyps. ? Having inflammatory bowel disease, such as ulcerative colitis or Crohn's disease. ? Having certain conditions passed from parent to child (hereditary conditions), such as: ? Familial adenomatous polyposis (FAP). ? Mendiola syndrome. ? Turcot syndrome. ? Peutz?Jeghers syndrome. ? MUTYH-associated polyposis (MAP). ? Being overweight. ? Certain lifestyle factors. These include smoking cigarettes, drinking too much alcohol, not getting enough exercise, and eating a diet that is high in fat and red meat and low in fiber. ? Having had childhood cancer that was treated with radiation of the abdomen. What are the signs or symptoms? Many times, there are no symptoms. If you have symptoms, they may include: ? Blood coming from the rectum during a bowel movement. ? Blood in the stool (feces). The blood may be bright red or very dark in color. ? Pain in the abdomen. ? A change in bowel habits, such as [...] these instructions at home: Eating and drinking ? Eat foods that are high in fiber, such as fruits, vegetables, and whole grains. ? Eat foods that are high in calcium and vitamin D, such as milk, cheese, yogurt, eggs, liver, fish, and broccoli. ? Limit foods that are high in fat, such as fried foods and desserts. ? Limit the amount of red meat, precooked or cured meat, or other processed meat that you eat, such as hot dogs, sausages, rahman, or meat loaves. ? Limit sugary drinks. Lifestyle ? Maintain a healthy weight, or lose weight if recommended by your health care provider. ? Exercise every day or as told by your health care provider. ? Do not use any products that contain nicotine or tobacco, such as cigarettes, e-cigarettes, and chewing tobacco. If you need help quitting, ask your health care provider. ? Do not drink alcohol if: ? Your health care provider tells you not to drink. ? You are , may be , or are planning to become . ? If you drink alcohol: ? Limit how much you use to: ? 0?1 drink a day for women. ? 0?2 drinks a day for men. ? Know how much alcohol is in your drink. In the [place] one drink equals one 12 oz bottle of beer (355 mL), one 5 oz glass of wine (148 mL), or one 1? oz glass of hard liquor (44 mL). General instructions ? Take dpdp-mtw-gobtzwv and prescription medicines only as told by your health care provider. ? Keep all follow-up visits. This is important. This includes having regularly scheduled colonoscopies. Talk to your health care provider about when you need a colonoscopy. Contact a health care provider if: ? You have new or worsening bleeding during a bowel movement. ? You have new or increased blood in your stool. ? You have a change in bowel habits. ? You lose weight for no known reason. Summary ? Colon polyps are tissue growths inside the colon, which is part of the large intestine. They are one type of polyp that can grow in the body. ? Most colon polyps are noncancerous (benign), but some can become cancerous over time. ? This condition is diagnosed with a colonoscopy. ? This condition is treated by removing any polyps that are found. Most polyps can be removed during a colonoscopy. This information is not intended to replace advice given to you by your health care provider. Make sure you discuss any questions you have with your health care provider. Document Revised: 07/22/2020 Document Reviewed: 07/22/2020 [employer] Patient Education ? 2023 [employer]. ENDOSCOPIC PROCEDURE REPORT - OTHER Observed: 01/11/2024 10:14 AM Status: F Source: [facility] Endoscopic Procedure Report - Other Patient: VISHAL DUKE Age: 63 years Sex: Male : 1960 Associated Diagnoses: None Author: Roxana Graham MD Pre-Procedure Procedure Date 01/11/2024 10:26:00 . Procedure Type: Colonoscopy with removal of tumor(s), polyp(s), or other lesion(s) by cold snare technique. Procedure provider Performed by Roxana Graham MD. Current history and physical Reviewed. Kidney transplant ([id number]) on 01/01/2018 at 57 Years. Comments: 01/01/2020 12:00 REINAT Leia Krishnan MA Pt has three kidneys Placement of stent in cardiac conduit ([id number]). Triple coronary bypass ([id number]). Bilateral vasectomy (217589713). Colonoscopy ([id number]).. Past Medical History No active or resolved past medical history items have been selected or recorded.. Family History Alzheimer's disease Mother . Procedure History Kidney transplant ([id number]) on 01/01/2018 at 57 Years. Comments: 01/01/2020 12:00 Leia Molina MA Pt has three kidneys Placement of stent in cardiac conduit ([id number]). Triple coronary bypass (262597042). Bilateral vasectomy (109381177). Colonoscopy ([id number]).. Colorectal neoplasm risk assessment High risk Previous [...] bedtime), # 90 tab(s), Refills(s) 0, Pharmacy: [facility], 177.8, cm, 12/25/23 9:23:00 EDT, Height/Length [...] the left lateral decubitus position. Endoscope type used was an adult-size. The endoscope was lubricated then introduced through the anus. The scope was advanced to the terminal ileum. No difficulties encountered during the procedure. The bowel preparation quality was adequate (see polyps greater than or equal to 6 millimeters). The patient tolerated the procedure well. Time to Cecum: 8 min Withdrawal [...] examined terminal ileum Images Procedure images: Rec1_hd_video_09_14_[id number]_094.jpg Rec1_hd_video_T09_14_07_725.jpg Rec1_hd_video_T09_13_15_291.jpg Rec1_hd_video_09_11_28_356.jpg Rec1_hd_video_T09_11_20_920.jpg Rec1_hd_video_T09_10_48_698.jpg Rec1_hd_video_T09_08_29_068.jpg Rec1_hd_video_T09__28_957.jpg Rec1_hd_video_T09_05_36_358.jpg Rec1_hd_video__T08_59_41_142.jpg Rec1_hd_video__T08_59_18_324.jpg Rec1_hd_video__T08_58_24_619.jpg Rec1_hd_video__T08_58_15_178.jpg . Post-Procedure Complications: none. Estimated blood loss: Minimal. Specimens: sent to pathology. Devices/ implants: none left in place. Impression and Plan 1. Normal rectal exam 2. 2 sessile polyps in the descending colon and rectum, 5 mm in size, resected with cold snare completely and retrieved 3. Normal examined terminal ileum Recommendations: Repeat colonoscopy:: 7 yrs. Follow-up:: in clinic for 1-2 weeks when pathology is available. Diet:: Previous. Medication resumption:: Continue current medications, Avoid NSAIDs. Return to activities:: After 24 hours. Education and Follow-up: Counseled: Patient, Family. Result Comment: Electronical ly Signed By: Gladys FRANK, Roxana Butler\.br\Date and Time Signed: 01/11/24 10:28 EDT Other Comment: Missing Attac hment - attachment storage system not supported [id number] Can be viewed in source system Missing Attachment - attachment storage system not supported [id number] Can be viewed in source systemMissing Attachment - attachment storage system not supported [id number] Can be viewed in source systemMissing Attachment - attachment storage system not supported [id number] Can be viewed in source systemMissing Attachment - attachment storage system not supported [id number] Can be viewed in source systemMissing Attachment - attachment storage system not supported [id number] Can be viewed in source systemMissing Attachment - attachment storage system not supported [id number] Can be viewed in source systemMissing Attachment - attachment storage system not supported [id number] Can be viewed in source systemMissing Attachment - attachment storage system not supported [id number] Can be viewed in source systemMissing Attachment - attachment storage system not supported [id number] Can be viewed in source systemMissing Attachment - attachment storage system not supported [id number] Can be viewed in source systemMissing Attachment - attachment storage system not supported [id number] Can be viewed in source systemMissing Attachment - attachment storage system not supported [id number] Can be viewed in source system SURGICAL PATHOLOGY REPORT Observed: 12/17 9:34 AM Status: F Source: [place] [address] [place] [address]- Surgical Pathology Report Collected Date/Time: 01/11/2024 09:34 EDT Pathologist: Demond FRANK PhD, Karla Nielson Received Date/Time: 01/11/2024 11:19 EDT Gladys FRANK, Roxana Graham MD, Roxana Jansen Surgical Pathology Report - 01/17/2024 16:44 EDT [...] Received Date/Time: 01/11/2024 11:19 EDT Gladys FRANK, Roxana Graham MD, Roxana Butler Gross Description C: Received in formalin [...] characteristics were determined by the Laboratory of . They have not been cleared or approved by the US Food and Drug Administration. The FDA has determined that such clearance or approval is not necessary. These tests are used for clinical purposes. They should not be regarded as investigational or for research. Appropriate positive and negative controls are performed and are acceptable. Performed By: #### [id number] # ### [facility] [address] [place] [address] SURGICAL PATHOLOGY REPORT Observed: 12/17 9:34 AM Status: F Source: [address] [address]- Surgical Pathology Report Collected Date/Time: 01/11/2024 09:34 EDT Pathologist: Demond FRANK PhD, Karla Nielson Received Date/Time: 01/11/2024 11:19 EDT Gladys FRANK, Roxana Graham MD, Roxana Butler 07 Surgical Pathology Report - 01/17/2024 [...] Received Date/Time: 01/11/2024 11:19 EDT Gladys FRANK, Roxana Graham MD, Roxana Butler Gross Description C: Received in formalin [...] characteristics were determined by the Laboratory of . They have not been cleared or approved by the US Food and Drug Administration. The FDA has determined that such clearance or approval is not necessary. These tests are used for clinical purposes. They should not be regarded as investigational or for research. Appropriate positive and negative controls are performed and are acceptable. Performed By: #### [id number] # ### [facility] [address] [place] [address] MAIN OR INTRAOPERATIVE RECORD Observed: 01/11/2024 9:30 AM Status: C Source: [facility] Main OR Intraoperative Recor d IntraOp Document Type FT Summary Primary Physician: Roxana Graham MD Finalized Date/Time: 01/12/24 11:15:33 Pt. Name: VISHAL DUKE/Sex: 1960 Male Med Rec #: [id number] Physician: Roxana Graham MD Financial #: [id number] Pt. Type: O Room/Bed: / Admit/Disch: 01/11/24 08:13:18 - 01/11/24 23:59:59 Institution: Case Times FT Entry 1 Patient Times In Room 01/11/24 09:24:00 Out Room 01/11/24 10:08:00 Procedure Times Start 01/11/24 09:30:00 Stop 01/11/24 10:04:00 Anesthesia Times Start 01/11/24 09:24:00 Stop 01/11/24 10:08:00 Time at Cecum 01/11/24 09:47:00 Last Modified By: Karlene Saunders RN 01/11/24 10:09:03 General Comments: 935-EGD completed/AW RN 938-Colonoscopy started/AW RN 01/12/24 Chart opened for charge review per Dmitriy Lee RN. [place] Case Attendance FT Entry 1 Entry 2 Entry 3 Case Attendee Nick DNP, POULTRY PICKING MACHINE TENDER, Queen Nicky GODWIN, Monie Guzman Role Performed POULTRY PICKING MACHINE TENDER Cigarette Maker - Primary Scrub - Primary Time In 01/11/24 09:37:00 01/11/24 09:24:00 01/11/24 09:24:00 Time Out 01/11/24 10:08:00 01/11/24 10:08:00 01/11/24 10:08:00 Procedure EGD AND COLONOSCOPY(.) EGD AND COLONOSCOPY(.) EGD AND COLONOSCOPY(.) Comments Dr. Orozco supervising Last Modified By: Nicky RN, Karlene Saunders RN, Kralene Seth RN 01/11/24 10:09:04 01/11/24 10:09:04 01/11/24 10:09:04 Entry 4 Entry 5 Entry 6 Case Attendee Nikunj HENRY, Hanh Graham MD, Roxana Infante POULTRY PICKING MACHINE TENDER, Belinda Butler Role Performed Staff - Other Surgeon - Primary POULTRY PICKING MACHINE TENDER Time In 01/11/24 09:34:00 01/11/24 09:24:00 01/11/24 09:24:00 Time Out 01/11/24 10:08:00 01/11/24 10:08:00 01/11/24 09:38:00 Procedure EGD AND COLONOSCOPY(.) EGD AND COLONOSCOPY(.) EGD AND COLONOSCOPY(.) Comments help in room Dr. Orozco supervising Last Modified By: Nicky RN, Karlene Saunders RN, Karlene Saunders RN, Karlene 01/11/24 10:09:04 01/11/24 10:09:04 01/11/24 10:09:04 Perioperative [...] Primary Procedure Yes Primary Surgeon Gladys FRANK, Roxana Butler Start 01/11/24 09:30:00 Stop 01/11/24 10:04:00 [...] colon polyp, rectal polyp Last Modified By: Karleen Saunders RN 01/11/24 10:03:09 Post-Care Text: The patient is free from signs and symptoms of infection Skin Assessment (Pre Procedure) FT Pre-Care Text: Implements protective measures to prevent skin/ tissue injury due to thermal or mechanical sources Evaluates for signs and symptoms of physical injury to skin and tissue Entry 1 Skin Integrity Intact, [place], Warm, & Skin Abnormality No Dry Outcomes Met? Yes Last Modified By: Karlene Saunders RN 01/11/24 09:40:40 Post-Care Text: The patient is free from signs and symptoms of injury caused by extraneous objects Patient Positioning FT Pre-Care Text: Identifies physical alterations that require additional precautions for procedure-specific positioning, verifies presence of prosthetics or corrective devices, positions the patient, evaluates the patient for signs and symptoms of injury as a result of positioning Entry 1 Procedure EGD AND COLONOSCOPY(.) Body Position Lateral, right side up Feet Uncrossed? Yes Left Arm Position Resting at Side Right Arm Position Resting at Side Left Leg Position Extended Right Leg Position Extended Positioning Device Safety Strap, Pillow Under Head Large Press Points Checked Yes By Karlene Saunders RN Outcomes Met? Yes Last Modified By: Karlene Saunders RN 01/11/24 09:40:48 Post-Care Text: The patient is free from signs and symptoms of injury related to positioning Patient Care Devices FT Pre-Care Text: Implements protective measures to prevent skin/ tissue injury due to thermal or mechanical sources Entry 1 Entry 2 Equipment Type ENDOSCOPY VIDEO SYSTEM MONITOR CHARGE SURGERY Equipment Number [id number] E1 Equipment Setting Outcomes Met? Yes Yes Last Modified By: Karlene Saunders RN, RN, Angela 01/11/24 09:41:04 01/11/24 09:41:04 Post-Care Text: The patient is free from signs and symptoms of injury caused by extraneous objects Transport To OR FT Pre-Care Text: Transports according to individual needs. Evaluates for signs and symptoms of skin and tissue injury as a result of transfer or transport Entry 1 Via Cart By Karlene Saunders RN Safety Precautions Side Rails Up Outcomes Met? Yes Last Modified By: Karlene Saunders RN 01/11/24 09:41:11 Post-Care Text: The patient is free from signs and symptoms of injury related to transfer/transport Departure From OR FT Pre-Care Text: Transports according to individual needs. Evaluates for signs and symptoms of skin and tissue injury as a result of transfer or transport. Entry 1 Via Cart Safety Precautions Safety Strap, Side Rails Up PostOp Destination PACU Transported By Karlene Saunders RN Patient Status Stable Skin. Condition Intact, [place], Warm, & Dry Airway Maintenance Oxygen in Use? No Airway Device N/A Outcomes Met? Yes Last Modified By: Karlene Saunders RN 01/11/24 09:41:36 Post-Care Text: The patient is free from signs and symptoms of injury related to transfer/transport General Comments: Report given to ELECTROPHYSIOLOGY TECHNICIAN/AW aemt Administration FT Pre-Care Text: Verifies allergies, administers prescribed medications and solutions, administers prescribed antibiotic therapy and immunizing agents as ordered, evaluates response to medications Administers prescribed medications and solutions Entry 1 Expiration Date Yes Outcomes Met? Yes Verified Last Modified By: Karlene Saunders RN 01/11/24 09:41:47 Post-Care Text: The patient received appropriate medication(s) safely administered during the perioperative period For Duran-Jeanmarie please see scanned medication reconcilliation form for medications used at the field during the procedure. Cultures & Specimens FT Pre-Care Text: Manages specimen handling and disposition Manages culture specimen collection Entry 1 Cultures Ordered n/a Specimens Ordered Yes Specimen Disposition Designated OR Area Frozen Section Times Outcomes Met? Yes Last Modified By: Karlene Saunders RN 01/11/24 09:41:52 Post-Care Text: The patient is free from signs and symptoms of injury caused by extraneous objects The patient is free from signs and symptoms of infection Sign Out FT Entry 1 Before Patient Leaves OR Nurse verbally Yes Nurse verbally n/a confirms with the confirms with the team the name of team that the procedure(s) instrument, sponge, recorded and needle counts are correct (or N/A) Nurse verbally Yes Nurse verbally Yes confirms with the confirms with the team how the team whether there specimen is labeled are any equipment (including patient problems to be name), if applicable addressed Sign Out Complete 01/11/24 10:04:00 Last Modified By: Karlene Saunders RN 01/11/24 10:05:21 Case Comments <None> Finalized By: Jesus RN, COLLINSN, Shavonne Document Signatures Signed By: Karlene Saunders RN 01/11/24 10:09 Karlene Saunders RN 01/11/24 10:09 Jesus GODWIN, BSN, Shavonne 01/12/24 11:15 MAIN OR PREOPERATIVE RECORD Observed: 9:30 AM Status: F Source: [facility] Main OR Preoperative Record Holding Area Document Type FT Summary Primary Physician: Roxana Graham MD Finalized Date/Time: 01/11/24 09:12:50 Pt. Name: SRIKANTHVISHAL/Sex: 1960 Male Med Rec #: [id number] Physician: Roxana Graham MD Financial #: [id number] Pt. Type: O Room/Bed: / Admit/Disch: 01/11/24 [...] Signed By: Stacey Hamilton RN 01/11/24 09:12 MAIN OR PACU II RECORD Observed: 024 9:30 AM Status: F Source: [facility] Main OR PACU II Record PACU Phase II Document Type FT Summary Primary Physician: Roxana Graham MD Finalized Date/Time: 01/11/24 10:56:37 Pt. Name: DUKEVISHAL/Sex: 1960 Male Med Rec #: [id number] Physician: Roxana Graham MD Financial #: [id number] Pt. Type: O Room/Bed: / Admit/Disch: 01/11/24 [...] By: Maria Victoria Zaman I 01/11/24 10:56 OUTPATIENT SURGERY DISCHARGE INSTRUCTION Observed: 01/11/2024 9:28 AM Status: F Source: [facility] Outpatient Surgery Discharge Instruction [place] [address] Patient Discharge Instructions PERSON INFORMATION Name: HOLA DUKEREN Date of : 1960 Current Date: 01/11/2024 09:28:53 PHYSICIANS Admitting Physician: Roxana Graham MD Discharge Diagnosis: Chronic GERD; Colon [...] were given Patient Signature Date Clinican/Nurse Signature Date Follow up: Type Location Start Finish State [place] [facility] [place] 01/29/2024 10:30 AM 01/29/2024 10:45 [...] to serve you. Thank you for choosing [facility] HERE ARE THE MEDICATION CHANGES THAT OCCURRED [...] Milligram. PATIENT EDUCATION INFORMATION Instructions: Medication Leaflets: INPATIENT PATIENT SUMMARY Observed: 12/17 9:28 AM Status: F Source: [facility] Inpatient Patient Summary [place] [id number] [facility] Clinical Discharge Instructions PERSON INFORMATION Name: VISHAL DUKE PHYSICIANS Admitting Physician: Gladys FRANK, Roxana Butler Attending Physician: Gladys FRANK, Roxana Butler PCP: JANET FRANK, MUKUND [place] Discharge Diagnosis: Chronic GERD; Colon polyps Comment: PATIENT EDUCATION INFORMATION Instructions: Medication Leaflets: Follow up: Type Location Start Finish State [facility] Office Visit [facility] 01/29/2024 10:30 AM 01/29/2024 10:45 AM Confirmed [...] times a day. tacrolimus 1 Milligram. Comment: ENDOSCOPIC PROCEDURE REPORT - OTHER Obse rved: 01/11/2024 9:25 AM Status: F Source: [facility] Endoscopic Procedure Report - Other Patient: VISHAL DUKE Age: 63 years Sex: Male : 1960 Associated Diagnoses: None Author: Roxana Graham MD Pre-Procedure Procedure Date 01/11/2024 09:36:00 . Procedure Type: Esophagogastroduodenoscopy with biopsy. Procedure provider Performed by Roxana Graham MD. Current history and physical Documented [...] safety measures. Endoscope type used was an adult-size, introduced orally, advanced to the 3rd portion [...] Otherwise normal examined duodenum Images Procedure images: Rec_hd_video__45_16_915.jpg Rec_hd_video__45_23_273.jpg Rec_hd_video__45_03_184.jpg Rec_hd_video__44_52_949.jpg Rec_hd_video_08_43_34_038.jpg Rec1_hd_video__T08_43_22_197.jpg Rec1_hd_video__T08_43_03_991.jpg Rec1_hd_video__T08_42_47_702.jpg Rec1_hd_video__T08_41_40_816.jpg Rec1_hd_video_2023__T08_41_35_166.jpg Rec1_hd_video_2023__T08_41_25_447.jpg . [...] follow in GI clinic in 1-2 after discharge Result Comment: Electronical ly Signed By: Gladys FRANK, Roxana Butler\.br\Date and Time Signed: 01/11/24 09:38 EDT Other Comment: Missing Attac hment - attachment storage system not supported [id number] Can be viewed in source system Missing Attachment - attachment storage system not supported [id number] Can be viewed in source systemMissing Attachment - attachment storage system not supported [id number] Can be viewed in source systemMissing Attachment - attachment storage system not supported [id number] Can be viewed in source systemMissing Attachment - attachment storage system not supported [id number] Can be viewed in source systemMissing Attachment - attachment storage system not supported [id number] Can be viewed in source systemMissing Attachment - attachment storage system not supported [id number] Can be viewed in source systemMissing Attachment - attachment storage system not supported [id number] Can be viewed in source systemMissing Attachment - attachment storage system not supported [id number] Can be viewed in source systemMissing Attachment - attachment storage system not supported [id number] Can be viewed in source systemMissing Attachment - attachment storage system not supported [id number] Can be viewed in source system HISTORY AND PHYSICAL Observed: 4 9:24 AM Status: F Source: [facility] History and Physical Patient: VISHAL DUKE Age: 63 years Sex: Male : 1960 Associated Diagnoses: None Author: Roxana Graham MD Preoperative Information Indication for procedure and diagnosis: Screening for colon cancer, history of hyperplastic polyps, GERD Chief Complaint as above Review of Systems [...] bedtime), # 90 tab(s), Refills(s) 0, Pharmacy: [facility], 177.8, cm, 12/25/23 9:23:00 EDT, Height/Length [...] BPH with urinary obstruction / SNOMED CT 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 / Confirmed Hypertension / SNOMED CT 8298651893 / Confirmed Renal failure / SNOMED CT 37083383 / Confirmed polycystic kidney disease / SNOMED CT 252905227 / Confirmed Hyperlipidemia / SNOMED CT 64584582 / Confirmed Microhematuria / SNOMED CT 115755383 / Confirmed Nocturia / SNOMED CT 016638956 / Confirmed Kidney transplanted / SNOMED CT 3712881382 / Confirmed Myocardial infarct / SNOMED CT 47010801 / Confirmed Screen for colon cancer / SNOMED CT 364514659 / Confirmed History of colon polyps / SNOMED CT 8018428600 / Confirmed Histories Past Medical History: No active or resolved past medical history items have been selected or recorded. Family History: Mother Alzheimer's disease Procedure history: Kidney transplant ([id number]) on 01/01/2018 at 57 Years. Comments: 01/01/2020 12:00 EDT - Leia Anderson MA Pt has three kidneys Placement of stent in cardiac conduit ([id number]). Triple coronary bypass (740934295). Bilateral vasectomy (429628999). Colonoscopy (381746359). Social History Social & Psychosocial Habits Alcohol [...] hyperplastic polyps, GERD Plan: -EGD and Colonoscopy Result Comment: Electronical ly Signed By: Gladys FRANK, Roxana Butler\.br\Date and Time Signed: 01/11/24 09:25 EDT PROGRESS NOTE-PHYSICIAN Observed: 2023 8:40 AM Status: F Source: [facility] Progress Note-Physician Patient: VISHAL DUKE Age: 63 years [...] bedtime), # 90 tab(s), Refills(s) 0, Pharmacy: [id number], 177.8, cm, 12/25/23 9:23:00 EDT, Height/Length [...] BPH with urinary obstruction / SNOMED CT 3302872144 / Confirmed History of colon polyps / SNOMED CT 0715983738 / Confirmed Hyperlipidemia / SNOMED CT 56112945 / Confirmed Hypertension / SNOMED CT 5143510493 / Confirmed Kidney transplanted / SNOMED CT 9230255406 / Confirmed Microhematuria / SNOMED CT 616464282 / Confirmed Myocardial infarct / SNOMED CT 24086064 / Confirmed Nocturia / SNOMED CT 066578555 / Confirmed polycystic kidney disease / SNOMED CT 048189168 / Confirmed Renal failure / SNOMED CT 55713493 / Confirmed Screen for colon cancer / SNOMED CT 441350055 / Confirmed Histories Past Medical History: No active or resolved past medical history items have been selected or recorded. Procedure history: Kidney transplant ([id number]) on 01/01/2018 at 57 Years. Comments: 01/01/2020 12:00 Leia Molina MA Pt has three kidneys Placement of stent in cardiac conduit ([id number]). Triple coronary bypass ([id number]). Bilateral vasectomy (170577228). Colonoscopy (012895854). Social History Social & Psychosocial Habits Alcohol 12/25/2023 Risk Assessment: Low Risk Substance Abuse 12/25/2023 Risk Assessment: Denies Substance Abuse Tobacco 12/25/2023 Risk Assessment: Denies Tobacco Use 12/25/2023 Tobacco Use: Former smoker, quit more Smokeless tobacco use: Never Type: Cigarettes . Physical Examination VS/Measurements Airway: Mallampati classification: II (soft palate, fauces, uvula visible). Respiratory: Lungs are clear to auscultation, Respirations are non-labored. Cardiovascular: Regular rhythm. Plan [place] [employer] (ASA) physical status classification: Class III. Anesthetic Preoperative Plan: Anesthesia General, and -TIVA. Result Comment: Electronical ly Signed By: Ivan Orozco Jr., DO.adam\Date and Time Signed: 01/11/24 08:41 EDT AMBULATORY VISIT SUMMARY Observed: 12/24 10:23 AM Status: F Source: [facility] Ambulatory Visit Summary VISHAL DUKE :1960 Visit Date:02/02/2023 Ambulatory Visit Instructions Your Care Team Attending Physician - Gladys FRANK, Roxana Butler Primary Care Physician - JANET FRANK, MUKUND Palomino This Is Your Medications List aspirin [...] mg Tab) sucralfate (sucralfate 1 g Tab) sulfamethoxazole-trimethoprim (Bactrim) tacrolimus valganciclovir (valganciclovir 450 mg oral tablet) Procedures Performed Kidney transplant (01/01/2018), Bilateral vasectomy, Colonoscopy, Placement of stent in cardiac conduit, Triple coronary bypass. What to do next Scheduled Follow-Up Appointments 2023 10:00 AM EDT With: Where: [facility] Monday 10:30 AM EDT With: LEONARDA FRANK, Reji Farrell Where: [facility] [address] [address]- Medications What How Much When Why Instructions [...] By Mouth 3 times a day Unchanged sulfamethoxazole-trimethoprim (Bactrim) By Mouth Every 12 hours Unchanged [...] you for choosing us for your care. GASTROENTEROLOGY OFFICE/CLIN IC NOTE Observed: 12/25/2023 9:41 AM Status: F Source: [facility] Gastroenterology Office/Clin ic Note Chief Complaint Colonoscopy HPI Staff Patient is a(n) year old male who presents today for a 10 year colonoscopy recall. Denies Fhx colon cancer. Denies previous EGD. Hx hyperplastic polyps. Denies n/v/c/d, abd pain, bloody or mucus stools. Blood thinners? Plavix Dr Chester [facility] prescribes Plavix GLP-1 agonists? no Colonoscopy 02/04/2013 w/Dr. Cerrato: DIAGNOSIS: Two sigmoid polyps as described above, status post snare polypectomy. 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 History of colon polyps (Z86.010: Personal history of colonic polyps) Ordered: famotidine, 40 mg = 1 tab(s), Oral, Once a day (at bedtime), # 90 tab(s), Refills(s) 0, Pharmacy: [id number], 177.8, cm, 12/25/23 9:23:00 EDT, Height/Length [...] bedtime), # 90 tab(s), Refills(s) 0, Pharmacy: [id number], 177.8, cm, 12/25/23 9:23:00 EDT, Height/Length [...] bedtime), # 90 tab(s), Refills(s) 0, Pharmacy: [facility], 177.8, cm, 12/25/23 9:23:00 EDT, Height/Length [...] bedtime), # 90 tab(s), Refills(s) 0, Pharmacy: [id number], 177.8, cm, 12/25/23 9:23:00 EDT, Height/Length [...] Cigarettes, 12/25/2023 Family History Alzheimer's disease: Mother. Immunizations Vaccine Date Status Comments influenza virus vaccine, inactivated - Not Given Patient Refuses influenza virus vaccine, inactivated 01/13/2023 Recorded influenza virus vaccine, inactivated 01/13/2022 Recorded SARS-CoV-2 (COVID-19) [id number] 12/30/2021 Recorded SARS-CoV-2 (COVID-19) mRNA-1273 vaccine 07/21/2021 Recorded 2023-12-22: TPV60 influenza virus vaccine, inactivated 02/01/2021 Recorded SARS-CoV-2 (COVID-19) mRNA-1273 vaccine 01/06/2021 Recorded 2023-12-22: TPV34 SARS-CoV-2 (COVID-19) mRNA-1273 vaccine 07/10/2020 Recorded 2023-12-22: TPV50 SARS-CoV-2 (COVID-19) mRNA-1273 vaccine 06/12/2020 Recorded 2023-12-22: TPV22 influenza virus vaccine, inactivated 01/27/2020 Recorded influenza virus vaccine, inactivated 01/22/2020 Recorded influenza virus vaccine, inactivated 01/16/2020 Recorded influenza virus vaccine, inactivated 02/05/2019 Recorded influenza virus vaccine, inactivated 05/11/2018 Recorded influenza virus vaccine, inactivated 02/16/2018 Recorded influenza virus vaccine, inactivated 06/08/2017 Recorded influenza virus vaccine, inactivated 12/16/2016 Recorded influenza virus vaccine, inactivated 01/28/2015 Recorded influenza, whole 04/27/2012 Recorded Result Comment: Electronical ly Signed By: Gladys FRANK, Roxana Butler\.br\Date and Time Signed: 12/25/23 09:51 EDT OFFICE VISIT Observed: 11/20/2023 10:00 AM Status: COMPLETED Source: [facility] [id number] Vishal Duke 1960 M Date Provider Department Center 11/20/2023 271-[facility] Family History Problem Relation Age of Onset Alzheimer's disease Mother Coronary artery disease Father Family Status - Relation Status Age at Mother Father Level of Service:94958 HI OFFICE/OUTPATIENT ESTABLISHED MOD MDM 30 MIN PROGRESS Observed: 11/20/2023 10:00 AM Status: COMPLETED Source: [facility] Cardiology Clinic Note Chief Complaint: Patient here [...] extremities. PSYCH: appropriate mood, affect, and judgement. Stress test 06/01/2022: Large area of inferoseptal and anterior apical infarct with small degree of reversible ischemia. Ejection fraction is 43%. No transient ischemic dilation. Normal exercise portion Echocardiogram-[facility] Name: VISHAL DUKE Study Date: 09/06/2022 09:22 AM B/P: / HR: Date of : 1960 Location: [facility] Height: 70 in. Age: 61 year(s) Patient Room : Weight: 213 lb. Gender: Male Patient Status: OutPt BSA: 2.14 m2 Indication: Dyspnea on exertion, CABG x3, S/P Kidney Transplant 08/15/17 Examination: Echocardiogram (Complete), Lumason Contrast Image Quality: Fair Patient Consent: Procedure explained to patient s p @ c 3 Conclusions Left Ventricle: The left ventricle is normal [...] better delineation of the left ventricular apex 11/17/2022 11:49 AM - Interface, Radiology Results In Narrative & Impression CT CHEST WO IV CONTRAST 11/15/2022 9:42 [...] and without contrast. Electronically signed: ONELIA WHITE. Assessment: 1. Coronary atherosclerosis I25.10: Atherosclerotic heart disease of kake coronary artery without angina pectoris atorvastatin 80 mg tablet - TAKE 1 TABLET BY MOUTH EVERY DAY Qty: 90 tablet(s) Refills: 3 Pharmacy: [facility] clopidogrel 75 mg tablet - TAKE 1 TABLET BY MOUTH DAILY Qty: 90 tablet(s) Refills: 3 Pharmacy: [facility] metoprolol succinate ER 200 mg tablet,extended release 24 hr - TAKE 1 TABLET BY MOUTH DAILY Qty: 90 tablet(s) Refills: 3 Pharmacy: [facility] 2. Gastroesophageal reflux disease K21.9: Gastro-esophageal reflux disease without esophagitis GASTROESOPHAGEAL REFLUX DISEASE (GERD): CARE INSTRUCTIONS 3. Coronary arteriosclerosis in kake artery - Continue risk factor modifications including heart healthy diet, exercise on a regular regimen, continue medications as currently prescribed Continue aspirin, Effient, pravastatin, metoprolol Denies any bleeding tendencies I25.10: Atherosclerotic heart disease of kake coronary artery without angina pectoris 4. Hyperlipidemia - Continue statin E78.2: Mixed hyperlipidemia HIGH CHOLESTEROL: CARE INSTRUCTIONS 5. Essential hypertension - Blood pressure well controlled 128/77 Continue lisinopril, metoprolol I10: Essential (primary) hypertension LEARNING ABOUT HIGH BLOOD PRESSURE 6. Chronic kidney disease stage 4 - Follow-up with PCP currently renal function has been stable N18.4: Chronic kidney disease, stage 4 (severe) 7. History of renal transplant - Follow-up with PCP Z94.0: Kidney transplant status 8. Subsequent non-ST segment elevation myocardial infarction - Currently stable no acute concerns I22.2: Subsequent non-ST elevation (NSTEMI) myocardial infarction 9. Ischemic congestive cardiomyopathy - EF 20 to 25% on recent hospitalization Ejection fraction of 41% on stress test 01/11/2021 I25.5: Ischemic cardiomyopathy 10. Automatic implantable cardiac defibrillator in situ - Placed in [place] after an episode of V. fib arrest; secondary prevention of sudden cardiac Z95.810: Presence of automatic (implantable) cardiac defibrillator 11. Angina pectoris I20.9: Angina pectoris, unspecified ANGINA: CARE INSTRUCTIONS 12. Coronary arteriosclerosis I25.10: Atherosclerotic heart disease of kake coronary artery without angina pectoris 13. Preoperative evaluation Plan: Will obtain an echocardiogram to evaluate his ejection fraction, wall motion, and valvular function His lower extremity discomfort sounds clinically like neuropathy; he is to discuss with his family physician Continue guideline directed medical therapy for coronary artery disease and heart failure with reduced ejection fraction Device interrogation per protocol Follow-up with the pulmonology clinic; continue use of inhaler therapy as prescribed, he will discuss the results of his repeat CT scan of the chest with pulmonology Return to clinic in 6 months or sooner should problems arise Federico Chester MD, MPH, FACC, [facility], [facility] Interventional Cardiology Pager Email: [email or web address] PROGRESS Observed: 10/06/2023 11:00 AM Status: COMPLETED Source: [facility] Transplant Clinic Patient : Vishal Duke; 62 y.o. Reason for Visit: History of renal transplant. SUBJECTIVE: History Of Present Illness: Patient is a 63-year-old male with a history of end-stage renal disease (related to PKD, status post bilateral kake nephrectomies in 01/2023), who is status post DDRT on 08/15/2017 (by Dr. Marquez.) CMV + / - Notable history of IA/cardiac arrest/implanted ICD in 202010/06/2023 Patient returns regarding post transplant evaluation and immunosuppression regimen management. Patient denies any acute complaints today. He continues to have respiratory symptoms, with exertion, while exposed to elements outside during warm weather, however tolerates walking on the treadmill at home 0.5 to 1 mile daily. With exertion he feels a burning sensation mid-sternal. Previous open heart surgery in 2007, also cardiac arrest 2020. Now has ICD. He uses inhaler. Endorses orthopnea. Urinary-nocturia x 1, denies dysuria or gross hematuria. Bowel movements-mild constipation, requiring use of stool softener, Colace, 2-3 times weekly Patient denies fever, chills, nausea or vomiting. Continues on Nexium. Follows with dermatology Has had therapeutic phlebotomy in the past Hydration: 8 normal bottles of water per day BP: Lisinopril, metoprolol, Imdur, also Ranexa. Glucose: On long-acting 10 units insulin Mag: Magnesium oxide 400 mg, tablet, 3 times daily. Lipids: Atorvastatin 80 mg p.o. daily Immunosuppression: Tacrolimus 0.5 mg / 0.5 mg Usually taken 9-9:30 AM/9-9:30 PM Myfortic 540 mg (3 tabs x 180mg), PO, BID Prednisone 5 mg p.o. daily (would like to know if he can discontinue) Review of Systems Negative other than pertinent positives as outlined in the above HPI Chart Reviewed Historical: >>>>>>>>>>>>>>>>>>>>>>>>>>>>>>>>>>>>>>>>>>>>>>>>>>>>>>>>>>>>>>>> 03/28/2023 Vishal Duke is a 62 y.o. male who End-stage renal disease secondary to Polycystic Kidneys who underwent donor kidney transplant on 08/15/2017 (Kidney). 03/28/23 Pt presents for office visit. Pt is s/p bilateral nephrectomy by Dr Agee on 01/24/23 and all incision well healed without s/s infection. Pt eating / drinking well normal Bms and voiding. 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 he received DDRT on aug 16 2017 , uncomplicated. Hx; IA and had Pacer/Defib Placed. Pt following up [facility] cardiology Pt inpatient for ruptured renal cyst in 11/2020 Pt denies CP or SOB. No N/V/D. No edema. Reviewed immunosuppression meds and patient verbalized understanding. IS: TAC 1mg in am and 0.5mg pm Myfortic 540mg BID Prednisone 5mg every day Labs from 02/23/23: B./S 115 Creat 1.3, K+ 4.3; Mag 1.9, Phos 3.7; Hgb 14.9 WBC 7.9 Discussed adequate hydration. PLan of Care: See Cardiology as scheduled. See PCP. See Dr Agee. Continue meds and labs. follow up 6 months. Chart Reviewed today: 02/09/23 DD Renal transplant on (08/15/2017) by Dr. Marquez. CMV +/-. Patient has recent history of an IA and had Pacer/Defib Placed. Patient here for follow up Nephrectomy Patient states he is feeling good with a 21 pound weight loss since bilat kake kidney's removed. He states that he currently feels much better than pre-op. Patient states that he followed-up with his PCP last week who said his labs were appropriate and notes improved kidney function. Current IS: tacrolimus 0.5 mg twice a day, Myfortic 540 mg twice a day, Prednisone 5 mg every other day Discussion/Plan: -Creatinine: on 01/25/23 0.93 today's still pending -Patient denies any N, V, D, C, CP or SOB. Pt also denies any urinary complaints. -Communicable disease prevention discussed -Incision Healing appropriately from robotic nephrectomy -Continue Current IS - Continue good hydration and as ordered - Continue monthly labs and as ordered - Stent Removed previously - Follow up: [address] Agee and VALE Angelo in March as scheduled It has been explained that the patient is to follow regularly with their PCP in addition to all other providers involved in their care and to follow instructions provided by these respective offices. However, patient will contact the clinic if any transplant-pertaining questions, concerns, new symptoms or problems arise in the interim period. 09/27/22 Pt is on Raghu only with No ARB at this time for HTN. Pt presents for office visit. 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 he received DDRT on aug 16 2017 , uncomplicated. Hx; IA and had Pacer/Defib Placed. Pt following up [facility] cardiology Pt inpatient for ruptured renal cyst in 11/2020 Pt denies CP or SOB. No N/V/D. No edema. Reviewed immunosuppression meds and patient verbalized understanding. Labs from 09/22/22: B./S 106 Creat 1.3, K+ 4.4; Mag 1.9, Phos 3.6 ; Hgb 16.1 WBC 6.5 Discussed adequate hydration. Pt see Dr Agee for polycystic and discussed possible nephrectomy in future pending improved cardiac status. PLan of Care: See Cardiology as scheduled. See PCP. See Dr Agee. Continue meds and labs. follow up 6 months. 06/16/22 Mr. Duke has bilateral large polycystic kidneys. He continues to be bothered by them. Has abdominal discomfort. He has a history of coronary artery disease for which he is being managed. His kidney function is acceptable. He continues to tolerate his immunosuppression. <<<<<<<<<<<<<<<<<<<<<<<<<<<<<<<<<<<<<<<<<<<<<<<<<<<<<<<<<<<<<<<< OBJECTIVE: Visit Vitals BP 134/64 (BP Location: Right arm, Patient Position: Sitting, BP Cuff Size: Adult) Pulse 69 Temp 36.5 ???C (97.7 ???F) (Oral) Resp 18 Ht 1.803 m (5' 11 ) Wt 92.5 kg (204 lb) BMI 28.45 kg/m??? Smoking Status Former BSA 2.15 m??? Wt Readings from Last 3 Encounters: 10/06/23 92.5 kg (204 lb) 06/05/23 90.7 kg (200 lb) 05/18/23 90.5 kg (199 lb 9.6 oz) Physical Exam Physical Exam: Constitutional: Vishal D Duke in NO acute distress Psychiatric: Normal affect, alert and oriented HEENT: No scleral icterus Pulmonary: Is not laboring to breathe Cardiovascular: No obvious cyanosis of the extremities Extremities: No significant lower extremity edema Neurologic: Grossly nonfocal Skin: No jaundice Recent Labs I have reviewed the patient's most recent labs as listed below: Reviewed most recent laboratory testing performed at [facility] lab on 09/27/2023: Creatinine 1.20, BUN 18, sodium 143, potassium 4.6, CO2 29, calcium 9.0 Normal LFTs Magnesium 1.7, phosphorus 4.1, uric acid 5.8. CBC with WBC 7.0, hemoglobin 15.4, platelets 207,000 BK virus undetected Tac level 5.8 Total cholesterol 132, triglycerides 132, Chemistry: Lab Results Component Value Date/Time NA 135 (L) 05/18/2023 0916 NA 136 01/24/2023 1258 K 4.0 05/18/2023 0916 K 4.3 01/24/2023 1258 CL 101 05/18/2023 0916 CO2 26 05/18/2023 0916 CO2 19 (L) 12/04/2020 0432 BUN 24 05/18/2023 0916 CREATININE 1.24 05/18/2023 0916 EGFR 65.7 05/18/2023 0916 GLU 127 (H) 12/04/2020 0432 CALCIUM 9.4 05/18/2023 0916 MG 1.6 (L) 05/18/2023 0916 PHOS 3.5 05/18/2023 0916 URICAC 8.6 (H) 12/12/2018 0755 ALBUMIN 4.5 05/18/2023 0916 PROT 6.8 05/18/2023 0916 AST 17 05/18/2023 0916 ALT 22 05/18/2023 0916 BILITOT 0.8 05/18/2023 0916 ALKPHOS 78 05/18/2023 0916 Hematology: Lab Results Component Value Date WBC 8.59 05/18/2023 HGB 16.2 05/18/2023 HCT 48.5 05/18/2023 MCV 89.6 05/18/2023 PLT 254 05/18/2023 FERRITIN 32.0 12/22/2022 Endocrine: Lab Results Component Value Date/Time HGBA1C 6.4 (H) 05/18/2023 0916 Lipids: Lab Results Component Value Date/Time CHOL 120 05/18/2023 0916 TRIG 209 (H) 05/18/2023 0916 LDL 82 05/18/2023 0916 HDL 38 05/18/2023 0916 Viral: Lab Results Component Value Date BKQUANT Not Detected 05/18/2023 BKLOG Not Detected 05/18/2023 Urine studies: Lab Results Component Value Date PROTUR Negative 05/18/2023 PROTUR 30 (A) 12/01/2020 COLORU Yellow 05/18/2023 SPECGRAVU 1.026 (H) 12/01/2020 BILIRUBINUR Negative 05/18/2023 BLOODU NEGATIVE 12/01/2020 WBCU 0-2 (A) 12/01/2020 LEUKOCYTESU NEGATIVE 12/01/2020 NITRITEU NEGATIVE 12/01/2020 HOME MEDICATIONS & PAST MEDICAL/SOCIAL/FAMILY HISTORY: Home medications Outpatient Encounter Medications as of 10/06/2023 Medication Sig Dispense Refill albuterol (ProAir HFA) 90 mcg/actuation inhaler Inhale 2 puffs every 4 (four) hours if needed for wheezing or shortness of breath. 8.5 g 2 aspirin 81 mg EC tablet Take 81 mg by mouth in the morning. atorvastatin (Lipitor) 80 mg tablet Take 1 tablet (80 mg) by mouth at bedtime. 90 tablet 3 clopidogrel (Plavix) 75 mg tablet Take 1 tablet (75 mg) by mouth in the morning. 90 tablet 3 empagliflozin (Jardiance) 10 mg Take 1 tablet (10 mg) by mouth once daily as directed. 90 tablet 3 esomeprazole (NexIUM) [address] capsule Take 1 capsule (40 mg) by mouth before breakfast. Do not open capsule. 30 capsule 11 isosorbide mononitrate ER (Imdur) 60 mg 24 hr tablet Take 1 tablet (60 mg) by mouth in the morning. Do not crush or chew. 90 tablet 3 lisinopril 5 mg tablet Take 1 tablet (5 mg) by mouth in the morning. 90 tablet 3 magnesium oxide (Mag-Ox) 400 mg tablet 400 mg three times daily. Take 3 tablets metoprolol succinate XL (Toprol-XL) 200 mg 24 hr tablet Take 1 tablet (200 mg) by mouth once daily as directed. Do not crush or chew. (Patient taking differently: Take 100 mg by mouth once daily as directed. Do not crush or chew.) 30 tablet 11 mycophenolate (Myfortic) 180 mg EC tablet Take 3 tablets (540 mg) by mouth in the morning and at bedtime. 540 tablet 3 nitroglycerin (Nitrostat) 0.[address] 0.4 mg under the tongue every 5 (five) minutes if needed for chest pain. predniSONE (Deltasone) 5 mg tablet Take 5 mg by mouth in the morning. ranolazine (Ranexa) 500 mg 12 hr tablet Take 1 tablet (500 mg) by mouth in the morning and at bedtime. Do not crush, chew, or split. 180 tablet 3 tacrolimus (Prograf) 0.5 mg capsule Take 1 capsule (0.5 mg) by mouth in the morning. TDD 1.5mg (Patient taking differently: Take 0.5 mg by mouth in the morning and at bedtime. TDD 1.5mg) 30 capsule 11 tacrolimus (Prograf) 1 mg capsule TDD 1.5mg 30 capsule 11 famotidine (Pepcid) 20 mg tablet Take 20 mg by mouth in the morning and at bedtime. methocarbamol (Robaxin) 500 mg tablet Take 1 tablet (500 mg) by mouth if needed in the morning, at noon, and at bedtime for muscle spasms for up to 5 days. (Patient not taking: Reported on 02/09/2023) 15 tablet 0 No facility-administered encounter medications on file as of 10/06/2023. Allergies Patient has no known allergies. Past Medical History has a past medical history of Coronary artery disease, GERD (gastroesophageal reflux disease), H/O coronary angioplasty, History of cardiac catheterization, Hyperlipidemia, Hypertension, Ischemic congestive cardiomyopathy (CMS/HCC), Kidney transplanted, Myocardial infarction (CMS/[facility]), and Polycystic kidney disease. Surgical History has a past surgical history that includes transplant, kidney, open; Cardiac catheterization; Coronary angioplasty with stent; Vascular surgery; Coronary artery bypass graft; and Cardiac pacemaker placement. Social History reports that he quit smoking about 16 [...] Alzheimer's disease Mother Coronary artery disease Father ASSESSMENT & VISIT DIAGNOSES: 1. Immunosuppression ([facility]) 2. Encounter for aftercare following kidney transplant 3. Kidney replaced by transplant 4. Other specified diabetes mellitus without complications ([facility]) 5. Hypertension, unspecified type PLAN: ESRD, s/p renal transplant. CR 1.20, stable graft function. Continue with adequate hydration Immunosuppresion - Currently on Prograf, Myfortic and Prednisone. Collaborative discussion w/Dr. Fuller in clinic. - Stop Prednisone. Continue with Myfortic 540mg PO BID. Continue tacrolimus twice daily-dose changes, if indicated, will be based on monthly laboratory testing results. HTN - BP in clinic 134/64 mmHg, well controlled with Metoprolol, Lisinopril and Imdur. Continue regimen unchanged. Also takes Ranexa from Cardiology Hypomag-mag level 1.7. Continue Mag-Ox supplementation unchanged. Encouraged mag rich foods HLD-continue on atorvastatin unchanged. No orders of the defined types were placed in this encounter. Requested Prescriptions No prescriptions requested or ordered in this encounter No images are attached to the encounter or orders placed in the encounter. FOLLOW UP: Follow up: In 6 months with CHRIS in renal transplant clinic Macrina Moon CNP Transplant/Urology [facility] FOLLOW-UP Observed: 10/06/2023 11:00 AM Status: COMPLETED Source: [facility] [id number] Vishal Duke 1960 M Date Provider Department Center 10/06/2023 [id number]-DJCXLEYMACRINA MOON None Family History Problem Relation Age of Onset Alzheimer's disease Mother Coronary artery disease Father Family Status - Relation Status Age at Mother Father Level of Service:56031 HI OFFICE/OUTPATIENT ESTABLISHED MOD MDM 30 MIN Reason for Visit and Comments: Kidney Follow-up [] - Pt has no concerns at this time. ALLERGIES DATE TYPE / CODE NAME / CODE REACTION SEVERITY SOURCE EVAN/[id number] (SNOMED CT) NO KNOWN ALLERGIES [facility] /[id number](SNOME D CT) No Known Allergies [facility] /[id number](SNOME D CT) [facility] [id number] [facility] ENCOUNTERS ADMIT/DISCHARGE ACCOUNT NUMBER ADMITTING ENCOUNTER CLASS LOCATION SOURCE 06/19/2024/06/20/19 [id number] Ambulatory Building:NO MS GLEASON [facility] EPIC 06/14/2024/06/14/19 25 [id number] Ambulatory Building:NO MS VICTORINO [facility] EPIC 06/12/2024/06/12/19 25 [id number] Ambulatory BuildinA [facility] 05/14/2024/05/14/19 25 [id number] Ambulatory Building:CC B [facility] 05/02/2024/05/02/19 25 [id number] Ambulatory Building:NO MS VICTORINO [facility] EPIC 04/11/2024/04/11/20 24 [id number] Ambulatory Buildin 10 [facility] 03/21/2024/03/21/20 24 [id number] Ambulatory Building:[facility] 03/18/2024/03/18/20 24 [id number] Ambulatory Building: B [facility] 03/04/2024/03/04/20 24 [id number] Ambulatory EU BellevueBui lding:EU AngelaueRoo m: Exam 1 [facility] 01/29/2024/01/29/20 24 [id number] Ambulatory Building:[facility] 01/29/2024/01/29/20 24 [id number] Ambulatory EU BellevueBui lding:EU [place] [facility] 01/26/2024/01/26/20 24 [id number] Ambulatory Building:[facility] 01/11/2024/01/11/20 24 [id number] Joel Grahamwaldemar Muhammadanel Ambulatory FTBuildin g:FT [facility] 12/25/2023/12/25/19 24 [id number] Ambulatory [place] DHBuilding: [place] Room: CD:[id number] [facility] 11/29/2023/11/29/19 24 [id number] Ambulatory Building:NO MS SWSDERM [facility] EPIC 11/23/2023/11/23/19 24 [id number] Ambulatory Building:FN RFAMMED [facility] EPIC 11/20/2023/11/20/19 24 [id number] Ambulatory Building:CC B [facility] 11/07/2023/11/07/19 24 [id number] Ambulatory Building: B [facility] 10/30/2023/10/30/19 24 [id number] Ambulatory Building:NO MS SWSDERM [facility] EPIC 10/06/2023/10/06/19 24 [id number] Ambulatory Buildin 10 [facility] 02/02/2023 [id number] Ambulatory [place] DHBuilding: [place] [facility] 12/25/2019 [id number] Ambulatory EU DaoyBui lding:EU [facility] PAYERS ENCOUNTER GUARANTOR PAYER SUBSCRIBER SOURCE 06/19/2024 VISHAL MESSINAB: [place] [address]Tcn: (HP) Primary Insurance:[facility] BrothersUniversity [facility] HospitalOrad Hi-Tech Systemsy Number: [id number] Date:2023-04-17 VISHAL DUKEDOB: [id number] [place] [address] [facility] EPIC 06/14/2024 VISHAL DUKEDOB: [place] [address]Wjv: (HP) Primary Insurance:HUMANA MEDICARE ADVANTAGEPolicy Number: [id number] Date:2023-04-17 VISHAL Medeiros BLACKBURNDOB: [id number] [place] [address] [facility] EPIC 06/12/2024 Primary Insurance:HUMAN MEDICARE ADVANTAGEPolicy Number: [id number] Date:2023-04-17 VISHAL Medeiros BLACKBURNDOB: [id number] [place] [address] [facility] 05/14/2024 Primary Insurance:HUMAN MEDICARE ADVANTAGEPolicy Number: [id number] Date:2023-04-17 VISHAL Medeiros BLACKBURNDOB: [id number] [place] [address] [facility] 05/02/2024 VISHAL Medeiros BLACKBURNDOB: [facility] [place] [place] [address]Ozc: (HP) Primary Insurance:[facility] MEDICARE ADVANTAGEPolicy Number: [id number] Date:2023-04-17 VISHAL Medeiros BLACKBURNDOB: [id number] [place] [address] [facility] EPIC 04/11/2024 Primary Insurance:HUMAN MEDICARE ADVANTAGEPolicy Number: [id number] Date:2023-04-17 VISHAL Medeiros BLACKBURNDOB: [id number] [facility] [place] [place] [address] [facility] 03/21/2024 VISHAL Medeiros BLACKBURNDOB: [place] [address]Zcd: (HP) Primary Insurance:HUMAN MEDICARE ADVANTAGEPolicy Number: [id number] Date:2023-04-17 VISHAL Medeiros BLACKBURNDOB: [id number] [place] [address] [facility] EPIC 03/18/2024 Primary Insurance:HUMAN MEDICARE ADVANTAGEPolicy Number: [id number] Date:2023-04-17 VISHAL DUKEDOB: [id number] [facility] [address] [facility] 03/04/2024 VISHAL DUKEDOB: S ANGELA CVTel: ~~( 41 (HP) Primary Insurance:HUMANAPolicy Number: [id number] Date:[id number] [address] [place] [id number][facility] VISHAL DUKEDOB: S [facility] [place] [address]Ayo: (HP) Primary Insurance:HUMANA MEDICARE ADVANTAGEPolicy Number: [id number] Date:2023-04-17 VISHAL DUKEDOB: [id number] [facility] [address] [facility] EPIC 01/29/2024 VISHAL BLACKBURNDOB: S [facility] CVTel: ~([phone] (HP) Primary Insurance:HUMANAPolicy Number: [id number] Date:1753-17-35WF [address] [place] [address]OJ: [facility] 01/26/2024 VISHAL RESTREPOBURNDOB: S [facility] [address]Sbu: (HP) Primary Insurance:HUMANA MEDICARE ADVANTAGEPolicy Number: [id number] Date:2023-04-17 VISHAL DUKEDOB: [id number] [address] [facility] [address] [facility] EPIC 01/11/2024 VISHAL RESTREPOBURNDOB: S [facility] CVTel: ~([phone] (HP) Primary Insurance:HUMANAPolicy Number: [id number] Date:4412-84-48ZE [address] [place] [id number]: VISHAL CARTER [facility] 12/25/2023 VISHALTOBY RESTREPOBURNDOB: S [facility] CVTel: ~([phone] (HP) Primary Insurance:HUMANAPolicy Number: [id number] Date:[id number] [address] [address]TG: VISHAL CARTER [facility] 11/29/2023 VISHAL DUKEDOB: [place] [address]Pav: (HP) Primary Insurance:HUMANA MEDICARE ADVANTAGEPolicy Number: [id number] Date:2023-04-17 VISHAL DUKEDOB: [id number] [place] [address] [facility] 11/23/2023 VISHAL DUKEDOB: [address] [place] [address]Gnx: (HP) Primary Insurance:HUMANA MEDICARE ADVANTAGEPolicy Number: [id number] Date:2023-04-17 VISHAL DUKEDOB: [id number] [place] [address] [facility] EPIC 11/20/2023 Primary Insurance:HUMANA MEDICARE ADVANTAGEPolicy Number: [id number] Date:2023-04-17 VISHAL DUKEDOB: [id number] [place] [address] [facility] 11/07/2023 Primary Insurance:HUMANA MEDICARE ADVANTAGEPolicy Number: [id number] Date:2023-04-17 VISHAL DUKEDOB: [id number] [facility] [place] [address] [facility] 10/30/2023 VISHAL BOWMAN: Marcelo [facility] [place] [address]Ggu: () Primary Insurance:HUMA[facility]AGE[facility] Number: [id number] Date:2023-04-17 VISHAL BOWMAN: [id number] [facility] [place] [address] [facility] 10/06/2023 Primary Insurance:HUMAN MEDICARE ADVANTAGEPolicy Number: [id number] Date:2023-04-17 IVSHAL BOWMAN: [id number] [facility] [place] [address] [facility]
[2024-09-10 09:06] LABS: Basophils Percent Auto 0.6 % (0.2-2.0); Eosinophils Absolute Auto 0.1 10^3/uL (0.0-0.7); Hemoglobin 15.4 g/dL (14.0-18.0); Immature Granulocytes Abs Auto 0.01 10^3/uL (0.00-0.03); Immature Granulocytes Pct Auto 0.1 % (0.0-0.5); Lymphocytes Percent Auto 15.2 % (20.5-60.0); Mean Corpuscular HGB Conc 32.1 g/dL (29.9-35.2); Mean Corpuscular Hemoglobin 28.7 pg (25.9-34.0); Mean Corpuscular Volume 89.4 fL (80.0-94.0); Mean Platelet Volume 10.3 fL (9.5-13.5); Monocytes Absolute Auto 0.7 10^3/uL (0.3-0.8); Monocytes Percent Auto 10.6 % (1.7-12.0); Neutrophils Absolute Auto 4.9 10^3/uL (1.4-6.5); Neutrophils Percent Auto 72.5 % (43.0-75.0); Platelet Count 234 10^3/uL (150-450); Red Blood Count 5.37 10^6/uL (4.70-6.10); Red Cell Distribution Width 14.2 % (11.0-15.0); White Blood Count 6.7 10^3/uL (4.0-11.0)
[2024-09-10 09:16] LABS: Alanine Aminotransferase 37 U/L (16-63); Albumin Globulin Ratio 1.3; Albumin Level 3.9 g/dL (3.4-5.0); Alkaline Phosphatase 102 U/L (46-116); Anion Gap 14.7; Aspartate Amino Transferase 22 U/L (15-37); BUN Creatinine Ratio 15.6; Bilirubin Direct 0.2 mg/dL (0.0-0.2); Bilirubin Total 0.9 mg/dL (0.2-1.0); Calcium 9.4 mg/dL (8.5-10.1); Carbon Dioxide 29.2 mmol/L (21.0-32.0); Chloride 105 mmol/L (98-107); Chol HDL Ratio 2.5; Cholesterol 110 mg/dL (<=200); Estimated GFR (African America >60 (>=60 mL/min/1.73m^2); Estimated GFR (Non-African Ame 53 (>=60 mL/min/1.73m^2); Globulin 3.1 g/dL; Glucose 141 mg/dL (74-106); HDL Cholesterol 44 mg/dL (40-60); LDL Cholesterol Calculated 36.2 mg/dL; Magnesium 1.8 mg/dL (1.8-2.4); Phosphorus 3.1 mg/dL (2.6-4.7); Potassium 4.9 mmol/L (3.5-5.1); Sodium 144 mmol/L (136-145); Triglycerides 149 mg/dL (<=150); Uric Acid 6.3 mg/dL (3.5-7.2); VLDL CHOLESTEROL 29.8 mg/dL
[2024-09-10 11:20] LABS: Estimated Average Glucose 137 mg/dL; Glycohemoglobin A1C 6.4 % (4.5-6.2)
[2024-09-11 04:07] LABS: Sex Horm Binding Glob, Serum 31.2 nmol/L (19.3-76.4)
[2024-09-11 11:08] LABS: BKV DNA, Quant PCR, Plasma Negative (Negative)
[2024-09-12 00:07] LABS: Free Testosterone(Direct) 8.9 pg/mL (6.6-18.1); Testosterone 399 ng/dL (264-916)
[2024-09-13 22:07] LABS: Tacrolimus (FK506), Blood 8.1 ng/mL (5.0-20.0)
== END 2024-09-10 08:16 | disposition home or self-care (01) ==
LOC: LAB 08:17
PROVIDERS: PCP Family Medicine; Visit Provider Nurse Practitioner Family
DX: R73.01 Impaired fasting glucose (principal); Z94.0 Kidney transplant status
CPT/HCPCS: 36415; 80053; 80061; 80197; 82248; 83036; 83735; 84100; 84270; 84402; 84403; 84550; 85025; 87799

== ENCOUNTER 2024-10-14 08:19 | Outpatient (OUT) | payer MEDICARE, SELFPAY ==
--- OUTSIDE RECORDS SUMMARY | 2024-10-03 11:30 | XMS_ITS | Encounter Summary ---
Author Organization [facility] Address [address] [place] [address] Care Team Providers Care Vocational Nurse Lvn Name Role Phone Rosa M Del Toro MD Primary Care Provider [phone] Rosa M Platt RN Unavailable [phone] Encounter Details Date Type Department Care Team (Latest Contact Info) Description 10/03/2024 11:30 AM EDT Office Visit [facility] [address] [place] [address] Rosa M Del Toro MD [address] [place] [address] Wellness examination (Primary Dx); Simple chronic bronchitis (HCC); Post-COVID chronic dyspnea; Chronic systolic congestive heart failure (HCC); Essential hypertension ; End-stage renal disease (HCC); PKD (polycystic kidney disease); Stage 3a chronic kidney disease ([facility]-HCC); History of kidney transplant (HCC); Dizziness; Type [...] often do you attend chur ch or sabianist services? 1 to 4 times per year 11/01/2022 Do you belong to any clubs o r organizations such as shinto groups, unions, fraternal or athletic groups, or [...] Recorded Patient Health Questionnaire-2 Score 0 10/03/2024 [facility] [place] of Occupat ional Health - Occupational Stress [...] EDTAssociated Problem(s): Stage 3 chronic kidney disease ([facility]-HCC) * Rosa M Del Toro MD - [...] Yes Vision Screening: Yes, patient sees regular psychiatric mental health nurse/legal services manager Hearing Screening: Yes, concerned about hearing loss [...] He recently returned from a vacation in [place], during which he experienced difficulty breathing in [...] healthy, he has discontinued visits to the credit card interviewer. He finds some relief from inhalers and monitors his oxygen levels at home, which typically range from 95 to 96 percent. He also reports occasio nal leg swelling, particularly in hot weather, but did not experience this during his recent trip to [place]. He has been experiencing frequent dizziness, which he attributes to either low blood pressure or high blood sugar levels. His tactical debriefer officer recently conducted an EKG, which yielded normal [...] is currently on Jardiance, prescribed by his tactical debriefer officer, and undergoes monthly lab tests ordered by his research program intern due to a kidney transplant. His A1c [...] lb 6.4 oz SpO2 93% BMI 28.51 kg/m?? Physical Exam Physical Exam General Appearance: Normal. [...] independence. Living will and durable power of health care attorney reviewed. Updated patient problem list and [...] at present. Essential hypertension End-stage renal disease ([facility]) S/P Transplant. PKD (polycystic kidney disease) Stage 3a chronic kidney disease ([facility]) History of kidney transplant ([facility]) Follows with transplant team. Dizziness Being evaluated by cardiology. 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) Orders: Blood Glucose Monitoring Suppl (Blood [...] diabetes. - Currently on Jardiance, prescribed by tactical debriefer officer, which also helps manage blood sugar. - No additional medications will be added at this time. - Advised to inform psychiatric mental health nurse about elevated blood sugar levels during next [...] [facility] [address] [place] [address] Kimberlyn Fishman MD [address] [place] [address] documented as of this encounter [...] documented as of this encounter Care Teams Vocational Nurse Lvn Relationship Specialty Start Date End Date Rosa M Del Toro MD [address] [place] [address] PCP - General Family Medicine 10/25/22 Rosa M Platt RN [address] [place] [address] Registered Nurse Family Medicine 03/01/23 documented as of this encounter
--- OUTSIDE RECORDS SUMMARY | 2024-10-14 08:29 | XMS_ITS | Continuity of Care Document ---
Author Organization [facility] Address [address] [place] [id number] Phone [phone]
--- OUTSIDE RECORDS SUMMARY | 2024-10-14 08:29 | XMS_ITS | Clinical Summary ---
Author Organization [facility] tem Address [id number] [place] [address] Care Team Providers Care Cargo Vessel Stewardess Name Role Phone Unavailable Primary Care Provider Unavailabl e Immunizations Immunization Administration Dates Next Due COVID-19, mRNA, LNP-S, PF, 100mcg/0.5mL Dose ,06/12/2020 Social History Tobacco Use Types Packs/Day Years Used Date Smoking Tobacco: Never Assessed Childcare Answer Date Recorded Childcare Unknown 09/26/2018 Employment Answer Date Recorded Employment Unknown 09/26/2018 Purpose - Life Answer Date Recorded Purpose and direction in life Unknown Sex and Gender Information Value Date Recorded Sex Assigned at Not on file Legal Sex Male 12:05 PM EDT Gender Identity Not on file Sexual Orientation Not on file Plan of Treatment Health Maintenance Due Date Last Done Comments Depression Screening 1972 Tobacco Screening 1972 Adult BMI Screening 1978 DTaP,Tdap and Td Vaccines (1 - Tdap) 12/27/1979 Zoster (Shingles) Vaccine (1 of 2) 2010 COVID-19 Vaccine (3 - 2023-2 5 season) 2023 07/10/2020, 06/12/2020 Influenza Vaccine 12/16/2024 01/22/2020, , 05/11/2018, Additional history exists Medical Devices Not on file Insurance [facility]
--- OUTSIDE RECORDS SUMMARY | 2024-10-14 08:29 | XMS_ITS | Encounter Summary ---
Author Organization [facility] Address [address] [place] [address] Care Team Providers Care Aerial Advertiser Name Role Phone Rosa M Del Toro MD Primary Care Provider [phone] Bobby Agee MD Unavailable Petey Redding CNP Unavailable [phone] Guido Campos MD Unavailable [phone] Reason for Visit * Reason Comments Med Refill Encounter Details Date Type Department Care Team (Late st Contact Info) Description 10/06/2024 Refill [facility] [address] [place] [address] Federico Chester MD [address] [facility] [place] [place] [address] Essential hypertension (Primary Dx); Aftercare following organ transplant Social History Tobacco Use Types Packs/Day Years Used Date Smoking Tobacco: Former Cigarettes 1 31 1 977 - 2007 Smokeless Tobacco: Never Alcohol Use Standard Drinks/Week Comments Yes 1 (1 standard drink = 0.6 oz pur e alcohol) occasional Humiliation, Afraid, Rape, and Kick questionnair e Answer Date Recorded Within the last year, have y ou been afraid of your partner or ex-partner? No 01/25/2023 Emotionally Abused Not on file 01/25/2023 Physically Abused Not on file 01/25/2023 Sexually Abused Not on file 01/25/2023 Overall Financial Resource Strain (CARDIA) Answe r Date Recorded How hard is it for you to pa y for the very basics like food, housing, medical care, and heating? Not hard at all 01/25/2023 PHQ-2 Answer Date Recorded Patient Health Questionnaire-2 Score 0 04/11/2024 [place] Safety & Environment Answer Date Rec orded Within the last year, have y ou been afraid of your partner or ex-partner? No 01/25/2023 Emotionally Abused Not on file 01/25/2023 Physically Abused Not on file 01/25/2023 Sexually Abused Not on file 01/25/2023 In the past year have you be en physically or sexually abused? Unrecognized value 01/25/2023 Transportation Answer Date Recorded In the past 12 months, has l ack of transportation kept you from medical appointments or from getting medications? No 01/25/2023 Lack of Transportation (Non-Medical) Not on file 01/25/2023 Housing Stability Vital Sign Answer Mario e Recorded Unable to Pay for Housing in the Last Year Not o n file 01/25/2023 Number of Places Lived in the Last Year Not on f ile 01/25/2023 In the last 12 months, was t here a time when you did not have a steady place to sleep or slept in a chcf (including now)? No 01/25/2023 Hunger Vital Sign Answer Date Recorded Within the past 12 months, y ou worried that your food would run out before you got the money to buy more. Never true 01/26/20 23 Ran Out of Food in the Last Year Not on file 01/25/2023 Sex and Gender Information Value Date Recorded Sex Assigned at Male 01/25/2022 7:18 AM EDT Legal Sex Male 10:33 PM EDT Gender Identity Male 01/25/2022 7:18 AM EDT Sexual Orientation Heterosexual or Straight 01/15 7:18 AM EDT documented as of this encounter Plan of Treatment Upcoming Encounters Date Type Department Care Team (Late st Contact Info) Description 10/17/2024 10:00 AM EDT Office Visit [facility] [address] [place] [address] Federico Chester MD [address] [facility] [place] [id number] 10/17/2024 2:30 PM EDT Follow-Up [facility] Transplant [address] [place] [id number] Sean Aden CNP [address] [place] [id number] 10/22/2024 9:30 AM EDT Ancillary Procedure [facility] [place] [address] [place] [address] documented as of this encounter Visit Diagnoses Diagnosis Essential hypertension- Primary Unspecified essential hypertension Aftercare following organ transplant documented in this encounter Care Teams Aerial Advertiser Relationship Specialty Start Date End Date Rosa M Del Toro MD PCP - General 01/25/22 Bobby Agee MD [address] [place] [address] [place] [address] Consulting Physician Urology 01/25/22 Petey Redding CNP [address] [place] [address] [address] [place] [address] Nurse Practitioner Urology 09/27/22 Guido Campos MD [address] [place] [address] [place] [address] Consulting Physician Transplant Surgery 12/22/22 documented as of this encounter
--- OUTSIDE RECORDS SUMMARY | 2024-10-14 08:29 | XMS_ITS | Clinical Summary ---
Author Organization [facility] Address [address] [place] [address] Phone Care Team Providers Care Computer Systems Analyst Name Role Phone Rosa M Del Toro MD Primary Care Provider [phone] Social History Tobacco Use Types Packs/Day Years Used Date Smoking Tobacco: Never Assessed Sex and Gender Information Value Date Recorded Sex Assigned at Not on file Legal Sex Male 8:09 PM EST Gender Identity Not on file Sexual Orientation Not on file Last Filed Vital Signs Vital Sign Reading Time Taken Comments Blood Pressure 138/70 04/23/2021 5:40 PM EST Pulse 61 04/23/2021 3:22 PM EST Temperature - - Respiratory Rate - - Oxygen Saturation - - Inhaled Oxygen Concentration - - Weight 96.2 kg (212 lb) 04/23/2021 3:22 PM EST Height 180.3 cm (5' 11 ) 04/23/2021 3:22 PM EST Body Mass Index 29.57 04/23/2021 3:22 PM EST Plan of Treatment Not on file Care Teams Computer Systems Analyst Relationship Specialty Start Date End Date Rosa M Del Toro MD [address] [place] [address] PCP - General 04/23/21
--- OUTSIDE RECORDS SUMMARY | 2024-10-14 08:29 | XMS_ITS | Encounter Summary ---
Author Organization [facility] Address [address] [facility] [place] [address] Care Team Providers Care Cant Hooker Name Role Phone Rosa M Del Toro MD Primary Care Provider [phone] Rosa M Platt RN Unavailable [phone] Rosa M Del Toro MD Unavailable [phone] Rosa M Del Toro MD Unavailable [phone] Reason for Visit * Reason Onset Date Comments Med Refill 05/19/2024 Encounter Details Date Type Department Care Team (Late st Contact Info) Description 05/19/2024 Refill [facility] [address] [place] [address] Rosa M Del Toro MD [address] [place] [address] History of kidney transplant (HCC) Social History Tobacco Use Types Packs/Day [...] 11/01/2022 How often do you attend chur or mandaen services? 1 to 4 times per year 11/01/2022 Do you belong to any clubs o r organizations such as scientology groups, unions, fraternal or athletic groups, or [...] Date Recorded Patient Health Questionnaire-2 Score 0 03/21/2024 [facility] [place] of Occupat ional Health - Occupational Stress [...] on file documented as of this encounter Miscellaneous Notes * Telephone Encounter - Rosa M Del Toro MD - 05/20/2024 2:25 PM EST Approving, but needs appt for additional refills. * Telephone Encounter - Rosa M Del Toro MD - 05/20/2024 9:45 AM EST Refills sent. documented in this encounter Plan of Treatment Upcoming Encounters Date Type Department Care Team (Late st Contact Info) Description 11/04/2024 9:45 AM EDT Office Visit [facility] [address] [place] [phone] Kimberlyn Fishman MD [address] [place] [address] documented as of this encounter Visit Diagnoses Diagnosis History of kidney transplant (HCC) Kidney replaced by transplant documented in this encounter Additional Health Concerns Assessment Noted Time PHQ-9 Depression Total Score: 0 11/09/19 9:00 AM EDT documented as of this encounter Care Teams Cant Hooker Relationship Specialty Start Date End Date Rosa M Del Toro MD [address] [place] [address] PCP - General Family Medicine 10/25/22 Rosa M Del Toro MD [address] [place] [address] PCP - ACO Reach 08/16/23 05/23/24 Rosa M Del Toro MD [address] [facility] [place] [address] PCP - ACO Reach 05/31/24 07/18/24 Rosa M Platt RN [address] [facility] [place] [address] Registered Nurse Family Medicine 03/01/23 documented as of this encounter
--- OUTSIDE RECORDS SUMMARY | 2024-10-14 08:30 | XMS_ITS | Encounter Summary ---
Author Organization [facility] Address [address] [place] [address] Care Team Providers Care Enamel Burner Name Role Phone Rosa M Del Toro MD Primary Care Provider [phone] Rosa M Platt RN Unavailable [phone] Rosa M Del Toro MD Unavailable Rosa M Del Toro MD Unavailable [phone] Encounter Details Date Type Department Care Team (Late st Contact Info) Description 01/26/2024 Orders Only [facility] [address] [place] [address] Unallocated, Noms Provider, [address] [place], [place] [id number] Social History Tobacco Use Types Packs/Day Years [...] How often do you attend chur or restoration services? 1 to 4 times per year 11/01/2022 Do you belong to any clubs o r organizations such as rastafari groups, unions, fraternal [...] Date Recorded Patient Health Questionnaire-2 Score 0 11/23/2023 [facility] of Occupat ional Health - Occupational Stress [...] on file documented as of this encounter Plan of Treatment Upcoming Encounters Date Type Department Care Team (Late st Contact Info) Description 11/04/2024 9:45 AM EDT Office Visit [facility] [address] [place] [address] Kimberlyn Fishman MD [address] [place] [address] documented as of this encounter Procedures Procedure Name Priority Date/Time Associated Diagnosis Comments HM COLONOSCOPY Routine 01/26/2024 3:11 PM EDT documented in this encounter Results * Hm Colonoscopy (01/26/2024 3:11 PM EDT) Anatomical Region Laterality Modality Other us Noms Provider Unallocated HEALTH MAINTENANCE Final Result documented in this encounter Visit Diagnoses Not on filedocumented in this encounter Additional Health Concerns Assessment Noted Time PHQ-9 Depression Total Score: 0 11/09/19 9:00 AM EDT documented as of this encounter Care Teams Enamel Burner Relationship Specialty Start Date End Date Rosa M Del Toro MD [address] [facility] [place] [address] PCP - General Family Medicine 10/25/22 Rosa M Del Toro MD [address] [facility] [place] [address] PCP - ACO Reach 08/16/23 05/23/24 Rosa M Del Toro MD [address] [facility] [place] [address] PCP - ACO Reach 05/31/24 07/18/24 Rosa M Platt, RN [address] [facility] [place] [address] Registered Nurse Family Medicine 03/01/23 documented as of this encounter
--- OUTSIDE RECORDS SUMMARY | 2024-10-14 08:30 | XMS_ITS | Encounter Summary ---
Author Organization [facility] Address [address] [facility] [place] [address] Care Team Providers Care Manufacturing Electrician Name Role Phone Rosa M Del Toro MD Unavailable [phone] Rosa M Del Toro MD Primary Care Provider [phone] Rosa M Platt RN Unavailable [phone] Rosa M Del Toro MD Unavailable Rosa M Del Toro MD Unavailable [phone] Reason for Visit * Reason Comments Med Refill Encounter Details Date Type Department Care Team (Late st Contact Info) Description 11/21/2022 Refill [facility] [address] [place] [phone] Rosa M Del Toro MD [address] [place], [place] [phone] History of kidney transplant (HCC) Social History Tobacco Use Types Packs/Day Years Used Date Smoking Tobacco: Former Cigarettes Q uit: 04/17/2007 Smokeless Tobacco: Never Alcohol Use Standard Drinks/Week Comments Never 0 (1 standard drink = 0.6 oz pur e alcohol) caffeine: 1-2 cups per day Humiliation, Afraid, Rape, [...] How often do you attend chur or alevism services? 1 to 4 times per year 11/01/2022 Do you belong to any clubs o r organizations such as anglican groups, unions, fraternal or athletic groups, or [...] Date Recorded Patient Health Questionnaire-2 Score 0 11/08/2022 [facility] of Occupat ional Health - Occupational Stress [...] PM EDT Sexual Orientation Not on file COVID-19 Exposure Response Date Recorded In the last 10 days, have yo u been in contact with someone who was confirmed or suspected to have Coronavirus/COVID-19? No / Unsure 11/01/2022 8:50 AM EDT documented as of this encounter Miscellaneous Notes * Telephone Encounter - Rosa M Del Toro MD - 11/21/2022 3:23 PM EDT Refills sent. documented in this encounter Plan of Treatment Upcoming Encounters Date Type Department Care Team (Late st Contact Info) Description 11/04/2024 9:45 AM EDT Office Visit [facility] [address] [place] [address] Kimberlyn Fishman MD [address] [place] [address] documented as of this encounter Visit Diagnoses Diagnosis History of kidney transplant (HCC) Kidney replaced by transplant documented in this encounter Additional Health Concerns Assessment Noted Time PHQ-9 Depression Total Score: 0 11/09/19 9:00 AM EDT documented as of this encounter Care Teams Manufacturing Electrician Relationship Specialty Start Date End Date Rosa M Del Toro MD [address] [facility] [place] [address] PCP - ACO Reach 09/08/22 06/15/23 Rosa M Del Toro MD [address] [facility] [place] [address] PCP - General Family Medicine 10/25/22 Rosa M Del Toro MD [address] [facility] [place] [address] PCP - ACO Reach 08/16/23 05/23/24 Rosa M Del Toro MD [address] [facility] [place] [address] PCP - ACO Reach 05/31/24 07/18/24 Rosa M Platt, TATO [address] [place] [address] Registered Nurse Family Medicine 03/01/23 documented as of this encounter
--- OUTSIDE RECORDS SUMMARY | 2024-10-14 08:30 | XMS_ITS | Encounter Summary ---
Author Organization [facility] Address [address] [facility] [place] [address] Care Team Providers Care Inside Phone Sales Name Role Phone Rosa M Del Toro MD Primary Care Provider [phone] Rosa M Platt RN Unavailable [phone] Encounter Details Date Type Department Care Team (Late st Contact Info) Description 10/03/2024 Telephone [facility] [address] [place] [address] Rosa M Del Toro MD [address] [place] [address] Social History Tobacco Use Types Packs/Day Years [...] often do you attend chur ch or restoration services? 1 to 4 times per year 11/01/2022 Do you belong to any clubs o r organizations such as methodist groups, unions, fraternal or athletic groups, or [...] Recorded Patient Health Questionnaire-2 Score 0 10/03/2024 [facility] Answer Date Recorded [...] on file documented as of this encounter Functional Status * Over the [...] much Not at all 10/03/2024 11:32 AM Adrianne Reyes MA Feeling tired or having little energy [...] television Not at all 10/03/2024 11:32 AM EDT Adrianne To MA Moving or speaking so slowly that other people could have noticed? Or the opposite - being so fidgety or restless that you have been moving around a lot more than usual. Not at all 10/03/2024 11:32 AM EDT Adrianne Vee ms, MA Thoughts that you would be better off or hurting yourself in some way Not at all 10/03/2024 11:32 AM EDT Bailey To MA Patient Health Questionnaire-9 Score 0 10/03/2024 11:32 AM EDT Russel To MA documented as of this encounter Miscellaneous Notes * Telephone Encounter - Codi Post MA - 10/04/2024 9:18 AM EDT [facility] * Telephone Encounter - Jackie Remy - 10/03/2024 3:56 PM EDT [facility] [place] [facility] test strips and lancets. How many do you want them to dispense and how many refills? They will take a verbal [phone]. Thank you. documented in this encounter Plan of Treatment Upcoming Encounters Date Type Department Care Team (Late st Contact Info) Description 11/04/2024 9:45 AM EDT Office Visit [facility] [address] [place] [address] Kimberlyn Fishman MD [address] [place] [address] documented as of this encounter Visit Diagnoses Not on filedocumented in this encounter Additional Health Concerns Assessment Noted Time PHQ-9 Depression Total Score: 0 10/04/19 11:32 AM EDT documented as of this encounter Care Teams Inside Phone Sales Relationship Specialty Start Date End Date Rosa M Del Toro MD [address] [place] [address] PCP - General Family Medicine 10/25/22 Rosa M Platt, RN [address] [place] [address] Registered Nurse Family Medicine 03/01/23 documented as of this encounter
--- OUTSIDE RECORDS SUMMARY | 2024-10-14 08:30 | XMS_ITS | Encounter Summary ---
Author Organization [facility] Address [address] [place] [address] Care Team Providers Care Helpdesk Administrator Name Role Phone Rosa M Del Toro MD Primary Care Provider [phone] Rosa M Platt RN Unavailable [phone] Encounter Details Date Type Department Care Team (Latest Contact Info) Description 10/03/2024 Travel Social History Tobacco Use Types Packs/Day Years [...] often do you attend chur ch or voodoo services? 1 to 4 times per year 11/01/2022 Do you belong to any clubs o r organizations such as quaker groups, unions, fraternal or athletic groups, or [...] Recorded Patient Health Questionnaire-2 Score 0 10/03/2024 [facility] of Occupat ional Health - Occupational Stress [...] Health Questionnaire-2 Score 0 10/03/2024 11:32 AM Russel Ruiz MA * Question Answer Date of Assessment [...] To MA documented as of this encounter Plan of Treatment Upcoming Encounters Date Type Department Care Team (Late st Contact Info) Description 11/04/2024 9:45 AM EDT Office Visit [facility] [address] [place] [address] Kimberlyn Fishman MD [address] [place] [address] documented as of this encounter Visit Diagnoses Not on filedocumented in this encounter Additional Health Concerns Assessment Noted Time PHQ-9 Depression Total Score: 0 10/04/19 25 11:32 AM EDT documented as of this encounter Care Teams Helpdesk Administrator Relationship Specialty Start Date End Date Rosa M Del Toro MD [address] [place] [address] PCP - General Family Medicine 10/25/22 Rosa M Platt, RN [address] [place] [address] Registered Nurse Family Medicine 03/01/23 documented as of this encounter
--- OUTSIDE RECORDS SUMMARY | 2024-10-14 08:30 | XMS_ITS ---
Author Organization [facility] Address [address] [facility] [place] [address] Care Team Providers Care Physical Therapist Assistant Name Role Phone Rosa M Del Toro MD Primary Care Provider [phone] Rosa M Brownlee RN Unavailable [phone] Chronic Care Management (CCM) Status:Enrolled (Active) Start date:03/01/2023 Enrollment date:03/01/2023 Enrollment reason:Referred by provider Overview Addresses patients in need of care management services. 03/01/23, 10:08 AM - Rsoa M Brownlee RN- Patient gives verbal consent to be enrolled in CCM Program and understands there could be a bill for this service. Case Team Name Relationship Phone Rosa M Brownlee RN(Responsible Staff) Registered Nurse [phone] Continued Care and Services Coordination
--- OUTSIDE RECORDS SUMMARY | 2024-10-14 08:30 | XMS_ITS | Encounter Summary ---
Author Organization [facility] Address [address] [facility] [place] [address] Care Team Providers Care Alpine Guide Name Role Phone Rosa M Del Toro MD Primary Care Provider [phone] Rosa M Platt RN Unavailable [phone] Rosa M Del Toro MD Unavailable Rosa M Del Toro MD Unavailable [phone] Reason for Visit * Reason Comments Med Refill Encounter Details Date Type Department Care Team (Late st Contact Info) Description 10/17/2023 Refill [facility] [address] [place] [address] Rosa M Del Toro MD [address] [place], [place] [phone] History of kidney transplant (HCC) Social History [...] often do you attend chur ch or episcopal services? 1 to 4 times per year 11/01/2022 Do you belong to any clubs o r organizations such as islam groups, unions, fraternal or athletic groups, or [...] Date Recorded Patient Health Questionnaire-2 Score 0 07/27/2023 [facility] of Occupat ionco Health - Occupational Stress Questionnaire Answer Date [...] - Rosa M Del Toro MD - 10/17/2023 9:31 PM EDT Approving, but needs appt for additional refills. documented in this encounter Plan of Treatment Upcoming Encounters Date Type Department Care Team (Late st Contact Info) Description 11/04/2024 9:45 AM EDT Office Visit [facility] [address] [place] [address] Kimberlyn Fishman MD [address] [place] [address] documented as of this encounter Visit Diagnoses Diagnosis History of kidney transplant (HCC) Kidney replaced by transplant documented in this encounter Additional Health Concerns Assessment Noted Time PHQ-9 Depression Total Score: 0 11/09/19 23 9:00 AM EDT documented as of this encounter Care Teams Alpine Guide Relationship Specialty Start Date End Date Rosa M Del Toro MD [address] [place] [address] PCP - General Family Medicine 10/25/22 Rosa M Del Toro MD [address] [place] [address] PCP - ACO Reach 08/16/23 05/23/24 Rosa M Del Toro MD [address] [place] [address] PCP - ACO Reach 05/31/24 07/18/24 Rosa M Platt, TATO [address] [place] [address] Registered Nurse Family Medicine 03/01/23 documented as of this encounter
--- OUTSIDE RECORDS SUMMARY | 2024-10-14 08:30 | XMS_ITS | Encounter Summary ---
Author Organization [facility] Healthcare Address [address] [place] [address] Care Team Providers Care Manager Of Broadcast Content Name Role Phone Rosa M Del Toro MD Primary Care Provider [phone] Rosa M Brownlee RN Unavailable [phone] Encounter Details Date Type Department Care Team (Late st Contact Info) Description 10/02/2024 Patient Outreach [facility] POPULATION [facility] [address] [place] [address] Rosa M Brownlee, RN [address] [place] [address] Social History Tobacco Use Types Packs/Day Years [...] often do you attend chur ch or buddhism services? 1 to 4 times per year 11/01/2022 Do you belong to any clubs o r organizations such as cheondoism groups, unions, fraternal or athletic groups, or [...] Recorded Patient Health Questionnaire-2 Score 0 [facility] Answer Date Recorded [...] on file documented as of this encounter Progress Notes * Rosa M Brownlee RN - 10/02/2024 12:40 PM EDT <October 02, 2024, 12:40 - Rosa M Brownlee RN> Call to home, spoke with pt. He is friendly and talkative. He reported he has appt with Dr Del Toro tomorrow. Last week he saw cardiology and has to have an echo done on 10/15/24. He has follow up appts with them on 10/17/24. He went to see them because he has been having dizzy spells lately. Sometimes they are really bad and he almost falls. His usually catches him. He had labs done and they think it may be his BS. His A1C was 6.4. He does check his BP about 3 x a week and it has been running ok. Occas it is low when he has the spells. He does not have a Bp log. Enc him to look at his monitorfor a history button and review what BP have been. He will do so. Enc to bring in BP numbers to appt tomorrow. He vu. He feels he is eating and drinking enough. At times he does not eat until 2pm. He is trying to eat a snack in the morning. He and just got back from [place] last night - they were there for 4 days. They relaxed and took it easy. The heat is hard on him - he has to rest if he feels like it is bothering him. He deniesneeds at this time. Enc to call for concerns. He vu. He is appreciative for call. documented in this encounter Plan of Treatment Upcoming Encounters Date Type Department Care Team (Late st Contact Info) Description 11/04/2024 9:45 AM EDT Office Visit [facility] [address] [facility] [address] [place] [address] Kimberlyn Fishman MD [address] [facility] [address] [place] [address] documented as of this encounter Visit Diagnoses Diagnosis Essential hypertension- Primary Unspecified essential hypertension Polycystic kidney disease, autosomal dominant Congenital polycystic kidney, autosomal dominant documented in this encounter Additional Health Concerns Assessment Noted Time PHQ-9 Depression Total Score: 0 11/09/19 9:00 AM EDT documented as of this encounter Care Teams Manager Of Broadcast Content Relationship Specialty Start Date End Date Rosa M Del Toro MD [address] [place], [place] [id number] PCP - General Family Medicine 10/25/22 Rosa M Brownlee RN [address] [place] [address] Registered Nurse Family Medicine 03/01/23 documented as of this encounter
--- OUTSIDE RECORDS SUMMARY | 2024-10-14 08:30 | XMS_ITS | Encounter Summary ---
Author Organization [facility] Address [address] [facility] [place] [address] Care Team Providers Care Glazier Artist Name Role Phone Rosa M Del Toro MD Primary Care Provider [phone] Rosa M Platt RN Unavailable [phone] Encounter Details Date Type Department Care Team (Late st Contact Info) Description 10/03/2024 Bamboo flowsheet [facility] [address] [place] [address] Rosa M Del Toro MD [address] [place] [address] Social History Tobacco Use Types [...] often do you attend chur ch or confucianism services? 1 to 4 times per year 11/01/2022 Do you belong to any clubs o r organizations such as pentecostal groups, unions, fraternal or athletic groups, or [...] Recorded Patient Health Questionnaire-2 Score 0 10/03/2024 [facility] - Occupational Stress Questionnaire Answer Date [...] DERM [address] [place] [address] Kimberlyn Fishman MD [address] [address] [facility] [address] [place] [address] documented as of this encounter Visit Diagnoses Not on filedocumented in this encounter Additional Health Concerns Assessment Noted Time PHQ-9 Depression Total Score: 0 10/04/19 25 11:32 AM EDT documented as of this encounter Care Teams Glazier Artist Relationship Specialty Start Date End Date Rosa M Del Toro MD [address] [place] [address] PCP - General Family Medicine 10/25/22 Rosa M Platt RN [address] [place] [address] Registered Nurse Family Medicine 03/01/23 documented as of this encounter
--- OUTSIDE RECORDS SUMMARY | 2024-10-14 08:30 | XMS_ITS | Encounter Summary ---
Author Organization [facility] Address [address] [facility] [place] [address] Care Team Providers Care Prefinish Operator Name Role Phone Rosa M Del Toro MD Primary Care Provider [phone] Rosa M Platt RN Unavailable [phone] Rosa M Del Toro MD Unavailable Rosa M Del Toro MD Unavailable Reason for Visit * Reason Onset Date Comments Med Refill 06/27/2023 Encounter Details Date Type Department Care Team (Late st Contact Info) Description 06/27/2023 Refill [facility] [address] [place] [address] Rosa M Del Toro MD [address] [place], [place] [id number] Simple chronic bronchitis (HCC) (Primary Dx) Social History Tobacco Use Types Packs/Day Years [...] How often do you attend chur or latter-day services? 1 to 4 times per year 11/01/2022 Do you belong to any clubs o r organizations such as confucianist groups, unions, fraternal or athletic groups, or [...] Date Recorded Patient Health Questionnaire-2 Score 0 02/17/2023 [facility] of Occupat ional Health - Occupational Stress [...] - Rosa M Del Toro MD - 06/27/2023 9:31 PM EDT Approving, but needs appt for additional refills. documented in this encounter Plan of Treatment Upcoming Encounters Date Type Department Care Team (Late st Contact Info) Description 11/04/2024 9:45 AM EDT Office Visit [facility] [address] [place] [address] Kimberlyn Fishman MD [address] [place] [address] documented as of this encounter Visit Diagnoses Diagnosis Simple chronic bronchitis (HCC)- Primary Simple chronic bronchitis documented in this encounter Additional Health Concerns Assessment Noted Time PHQ-9 Depression Total Score: 0 11/09/19 9:00 AM EDT documented as of this encounter Care Teams Prefinish Operator Relationship Specialty Start Date End Date Rosa M Del Toro MD [address] [place] [address] PCP - General Family Medicine 10/25/22 Rosa M Del Toro MD [address] [facility] [place] [address] PCP - ACO Reach 08/16/23 05/23/24 Rosa M Del Toro MD [address] [place] [address] PCP - ACO Reach 05/31/24 07/18/24 Rosa M Platt RN [address] [place] [address] Registered Nurse Family Medicine 03/01/23 documented as of this encounter
--- OUTSIDE RECORDS SUMMARY | 2024-10-14 08:30 | XMS_ITS | Encounter Summary ---
Author Organization [facility] Address [address] [facility] [place] [address] Care Team Providers Care Cafeteria Team Leader Name Role Phone Rosa M Del Toro MD Unavailable Rosa M Del Toro MD Primary Care Provider [phone] Rosa M Platt RN Unavailable [phone] Rosa M Del Toro MD Unavailable [phone] Rosa M Del Toro MD Unavailable [phone] Reason for Visit * Reason Comments Med Refill Encounter Details Date Type Department Care Team (Late st Contact Info) Description 12/21/2022 Refill [facility] [address] [place] [phone] Rosa M Del Toro MD [address] [place], [place] [phone] Kidney transplant status (HCC) Social History Tobacco Use Types Packs/Day [...] How often do you attend chur or episcopal services? 1 to 4 times [...] Recorded Patient Health Questionnaire-2 Score 0 11/08/2022 [facility] [place] of Occupat ional Health - Occupational Stress [...] - Rosa M Del Toro MD - 12/21/2022 2:05 PM EDT Approving, but needs appt for additional refills. documented in this encounter Plan of Treatment Upcoming Encounters Date Type Department Care Team (Late st Contact Info) Description 11/04/2024 9:45 AM EDT Office Visit [facility] [address] [place] [phone] Kimberlyn Fishman MD [address] [place] [address] documented as of this encounter Visit Diagnoses Diagnosis Kidney transplant status (HCC) documented in this encounter Additional Health Concerns Assessment Noted Time PHQ-9 Depression Total Score: 0 11/09/19 9:00 AM EDT documented as of this encounter Care Teams Cafeteria Team Leader Relationship Specialty Start Date End Date Rosa M Del Toro MD [address] [facility] [place] [address] PCP - ACO Reach 09/08/22 06/15/23 oRsa M Del Toro MD [address] [facility] [place] [address] PCP - General Family Medicine 10/25/22 Rosa M Del Toro MD [address] [facility] [place] [address] PCP - ACO Reach 08/16/23 05/23/24 Rosa M Del Toro MD [address] [facility] [place] [address] PCP - ACO Reach 05/31/24 07/18/24 Rosa M Platt RN [address] [facility] [place] [address] Registered Nurse Family Medicine 03/01/23 documented as of this encounter
--- OUTSIDE RECORDS SUMMARY | 2024-10-14 08:30 | XMS_ITS | Encounter Summary ---
Author Organization [facility] Address [address] [facility] [place] [address] Care Team Providers Care Billing Adjudicator Name Role Phone Rosa M Del Toro MD Unavailable Rosa M Del Toro MD Primary Care Provider [phone] Rosa M Platt RN Unavailable [phone] Rosa M Del Toro MD Unavailable [phone] Rosa M Del Toro MD Unavailable [phone] Encounter Details Date Type Department Care Team (Late st Contact Info) Description 01/31/2023 Abstract [facility] [address] [place] [address] Rosa M Del Toro MD [address] [place], [place] [id number] Social History Tobacco Use Types Packs/Day Years [...] often do you attend chur ch or latter day services? 1 to 4 times per year 11/01/2022 Do you belong to any clubs o r organizations such as lutheran groups, unions, fraternal or athletic groups, or [...] Recorded Patient Health Questionnaire-2 Score 0 11/08/2022 [facility] - Occupational Stress Questionnaire Answer Date [...] money to buy more. Never true 11/02/19 Within the past 12 months, t he [...] GALLARDO [address] [place] [address] Kimberlyn Fishman MD [address] [place] [address] documented as of this encounter Visit Diagnoses Not on filedocumented in this encounter Additional Health Concerns Assessment Noted Time PHQ-9 Depression Total Score: 0 11/09/19 9:00 AM EDT documented as of this encounter Care Teams Billing Adjudicator Relationship Specialty Start Date End Date Rosa M Del Toro MD [address] [place] [address] PCP - ACO Reach 09/08/22 06/15/23 Rosa M Del Toro MD [address] [place], [place] [phone] PCP - General Family Medicine 10/25/22 Rosa M Del Toro MD [address] [facility] [place] [address] PCP - ACO Reach 08/16/23 05/23/24 Rosa M Del Toro MD [address] [facility] [address] [place], [place] [address] PCP - ACO Reach 05/31/24 07/18/24 Rosa M Platt RN [address] [facility] [place] [address] Registered Nurse Family Medicine 03/01/23 documented as of this encounter
--- OUTSIDE RECORDS SUMMARY | 2024-10-14 08:30 | XMS_ITS | Clinical Summary ---
Author Organization [facility] Address [address] [place] [address] Care Team Providers Care Service Technician Copier Name Role Phone Rosa M Del Toro MD Primary Care Provider [phone] Bobby Agee MD Unavailable Petey Redding CNP Unavailable [phone] Guido Campos MD Unavailable [phone] Allergies No known active allergies Medications aspirin 81 mg EC tablet Take 81 mg by mouth in the morning. Active magnesium oxide (Mag-Ox) 400 mg tablet 400 mg three times daily. Take 3 tablets Active famotidine (Pepcid) 20 mg tablet Take 20 mg by mouth in the morning and at bedtime. Active predniSONE (Deltasone) 5 mg tablet Take 5 mg by mouth in the morning. Active albuterol (ProAir HFA) 90 mcg/actuation inhalerIndicati ons:Dyspnea on exertion Inhale 2 puffs every 4 (four) hours if needed for wheezing or shortness of breath. 8.5 g 2 10/25/19 23 Active methocarbamol (Robaxin) 500 mg tabletIndicatio ns:ADPKD (autosomal dominant polycystic kidney disease) Take 1 tablet (500 mg) by mouth if needed in the morning, at noon, and at bedtime for muscle spasms for up to 5 days. 15 tablet 01/26/20 23 Active Additional Information Patient not taking.Reported on 02/09/2023 metoprolol succinate XL (Toprol-XL) 200 mg 24 hr tabletIndicatio ns:Coronary artery disease, unspecified vessel or lesion type, unspecified whether angina present, unspecified whether knik or transplanted heart Take 0.5 tablets (100 mg) by mouth once daily as directed. Do not crush or chew. 90 tablet 3 12/19/19 24 Active Additional Information Patient not taking.Reported on 09/18/2024 nitroglycerin (Nitrostat) 0.4 mg SL tabletIndicatio ns:Coronary artery disease involving knik coronary artery of knik heart without angina pectoris Place 1 tablet (0.4 mg) under the tongue every 5 (five) minutes if needed for chest pain. 25 tablet 3 03/18/20 24 Active mycophenolate (Myfortic) 180 mg EC tabletIndicatio ns:Aftercare following organ transplant Take 3 tablets (540 mg) by mouth two times daily. 540 tablet 3 04/19/19 25 Active empagliflozin (Jardiance) 10 mgIndications:C ongestive heart failure, unspecified HF chronicity, unspecified heart failure type (CMS/HCC) Take 1 tablet (10 mg) by mouth once daily as directed. 90 tablet 05/22/19 026 Active tacrolimus (Prograf) 0.5 mg capsuleIndicati ons:Kidney replaced by transplant Take 1 capsule (0.5 mg) by mouth two times daily. 60 capsule 06/11/19 Active metoprolol succinate XL (Toprol-XL) 100 mg 24 hr tabletIndicatio ns:Palpitations Take 1 tablet (100 mg) by mouth in the morning. Do not crush or chew. 90 tablet 3 08/29/19 026 Active ranolazine (Ranexa) 500 mg 12 hr tabletIndicatio ns:Coronary artery disease, unspecified vessel or lesion type, unspecified whether angina present, unspecified whether knik or transplanted heart Take 1 tablet (500 mg) by mouth two times daily. Do not crush, chew, or split. 180 tablet 08/29/19 026 Active atorvastatin (Lipitor) 80 mg tabletIndicatio ns:Coronary artery disease, unspecified vessel or lesion type, unspecified whether angina present, unspecified whether knik or transplanted heart Take 1 tablet (80 mg) by mouth at bedtime. 90 tablet 08/29/19 026 Active isosorbide mononitrate ER (Imdur) 60 mg 24 hr tabletIndicatio ns:Chest pain, unspecified type Take 1 tablet (60 mg) by mouth once daily as directed. Do not crush or chew. 90 tablet 3 08/29/19 25 Active esomeprazole (NexIUM) [address] capsuleIndicati ons:Gastroesoph ageal reflux disease without esophagitis Take 1 capsule (40 mg) by mouth before breakfast. Do not open capsule. 90 capsule 3 08/29/19 25 Active clopidogrel (Plavix) 75 mg tabletIndicatio ns:Coronary artery disease, unspecified vessel or lesion type, unspecified whether angina present, unspecified whether knik or transplanted heart Take 1 tablet (75 mg) by mouth once daily as directed. 90 tablet 3 08/29/19 026 Active lisinopril 5 mg tabletIndicatio ns:Aftercare following organ transplant,Esse ntial hypertension TAKE 1 TABLET BY MOUTH IN THE MORNING 90 tablet 3 10/09/19 25 Active lisinopril 5 mg tabletIndicatio ns:Aftercare following organ transplant Take 1 tablet (5 mg) by mouth in the morning. 90 tablet 3 09/19/19 24 025 Discontinued Active Problems Problem Noted Date Diagnosed Date Glucosuria 03/18/2024 History of colon polyps 03/18/2024 Screen for colon cancer 03/18/2024 Cardiac arrest with ventricular fibrillation 06/05/2023 Chest pain 06/05/2023 06/05/2023 Impaired fasting glucose 02/27/2023 Chronic obstructive pulmonary disease 01/24/2023 ADPKD (autosomal dominant polycystic kidney dise ase) 01/24/2023 PKD (polycystic kidney disease) 12/21/2022 Renal failure 12/05/2022 12/05/2022 Pseudophakia 11/23/2022 12/05/2022 Active rickets 11/08/2022 12/05/2022 Acute non-ST elevation myocardial infarction (NS ILA) 11/08/2022 12/05/2022 Benign prostatic hyperplasia with urinary obstru ction 11/08/2022 12/05/2022 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 Next visit 12/07. Hyperkalemia 11/08/2022 12/05/2022 History of kidney disease 11/08/20222022 Hypervitaminosis A 11/08/2022 12/05/2022 Lower urinary tract symptoms due to benign prostatic hyperplasia 11/08/2022 12/05/2022 Male hypogonadism 11/08/2022 12/05/2022 Microscopic hematuria 11/08/2022 12/05/2022 Mixed hyperlipidemia 11/08/2022 12/05/2022 Myocardial infarction 11/08/2022 12/05/2022 Neuropathy 11/08/2022 12/05/2022 Nocturia 11/08/2022 12/05/2022 Upper respiratory infection 11/08/202211/16 Status post insertion of hermila g-eluting stent into left anterior descending (LAD) artery for coronary artery disease 11/08/2022 12/05/2022 Ventricular tachycardia 11/08/2022 12/06/19 Age-related nuclear cataract of left eye 023 12/05/2022 PCO (posterior capsular opacification), right 12/05/2022 Post-COVID chronic dyspnea 10/24/2022 Chronic systolic congestive heart failure 2022 Elevated hemoglobin 08/18/2022 Aftercare following organ transplant 05/04/2022 Kidney replaced by transplant 05/04/2022 Electrolyte abnormality 05/04/2022 Immunosuppression 05/04/2022 Polycystic kidney disease, autosomal dominant Increased infection risk sta tus post immunosuppressive therapy 12/30/2019 12/05/2022 History of kidney transplant 12/30/2019 Overview (12/05/2022): Cont meds as per recommedations of renal team. History of renal transplant 12/30/201911/16 End-stage renal disease 01/20/2016 12/06/19 Acute bronchitis 03/28/2013 12/05/2022 Stage 4 chronic kidney disease 03/28/2013 0 12/05/2022 Overview (12/05/2022): SEC TP PKD -CREATININE NOW 2.5-3MG/DL ON TRANSPLANT LIST. Hyperlipidemia 05/24/2012 12/05/2022 Gouty arthropathy 02/16/2012 12/05/2022 Overview (12/05/2022): STABLE STABLE Gastroesophageal reflux disease 12/09/2009 12/05/2022 Coronary atherosclerosis 12/09/2009 023 Overview (12/05/2022): S/P CABG NOV 2008 Pyelonephritis 12/09/2009 12/05/2022 Overview (12/05/2022): PKD PKD Stage 3 chronic kidney disease 12/09/2009 0 12/05/2022 Overview (12/05/2022): SEC TO ADPKD WITH BASELINE CREAT 2-2.5 SEC TO ADPKD WITH BASELINE CREAT 2-2.5 Hypertension 04/17/1991 12/05/2022 Overview (12/05/2022): CONTROLLED AT HOME CONTROLLED AT HOME CONTROLLED AT HOME CONTROLLED AT HOME Elevated hematocrit Encounters Date Type Department Care Team Description 10/06/2024 Refill [facility] [place] [address] [place] [address] Federico Chester MD Essential hypertension (Primary Dx); Aftercare following organ transplant 09/18/2024 9:45 AM EDT Office Visit [facility] [address] [place] [facility] [place] [address] Federico Chester MD Congestive heart failure, unspecified HF chronicity, unspecified heart failure type (CMS/HCC) (Primary Dx); Coronary artery disease, unspecified vessel or lesion type, unspecified whether angina present, unspecified whether knik or transplanted heart; Gastroesophageal reflux disease without esophagitis; Dizziness; Palpitations; Ischemic cardiomyopathy 09/18/2024 Telephone [facility] [address] [place] [address] Vi Ballard MA 09/10/[address] [place] [address] Federico Chester MD Coronary artery disease, unspecified vessel or lesion type, unspecified whether angina present, unspecified whether knik or transplanted heart 08/28/2024 Refill [facility] [address] [place] [address] Malissa To MA Palpitations; Coronary artery disease, unspecified vessel or lesion type, unspecified whether angina present, unspecified whether knik or transplanted heart; Chest pain, unspecified type; Gastroesophageal reflux disease without esophagitis 08/26/2024 Refill [facility] [address] [place] [address] Federico Chester MD Coronary artery disease, unspecified vessel or lesion type, unspecified whether angina present, unspecified whether knik or transplanted heart; Chest pain, unspecified type; Gastroesophageal reflux disease without esophagitis; Palpitations from Last 3 Months Immunizations Immunization Administration Dates Next Due Moderna Covid-19 vaccine, 12&up 03/30/2023 Family History Medical History Relation Name Comments Coronary artery disease Father Alzheimer's disease Mother Relation Name Status Comments Father Mother Social History Tobacco Use Types Packs/Day Years Used Date Smoking Tobacco: Former Cigarettes 1 31 1 977 - 2007 Smokeless Tobacco: Never Tobacco Cessation:Counseling Given: Not Answered Alcohol Use Standard Drinks/Week Comments Yes 1 [...] Recorded Patient Health Questionnaire-2 Score 0 04/11/2024 [place] Safety & Environment Answer Date Rec orded [...] place to sleep or slept in a senior living (including now)? No 01/25/2023 Hunger Vital Sign [...] Heterosexual or Straight 01/15 7:18 AM EDT Last Filed Vital Signs Vital Sign Reading Time Taken Comments Blood Pressure 114/68 09/18/2024 9:46 AM EDT Pulse 64 09/18/2024 9:46 AM EDT Temperature 36.7 C (98 F) 04/11/2024 10:47 AM EST Respiratory Rate 18 04/11/2024 10:47 AM EST Oxygen Saturation 97% 09/18/2024 9:46 AM EDT Inhaled Oxygen Concentration - - Weight 92.1 kg (203 lb) 09/18/2024 9:46 AM EDT Height 180.3 cm (5' 11 ) 09/18/2024 9:46 AM EDT Body Mass Index 28.31 09/18/2024 9:46 AM EDT Plan of Treatment Upcoming Encounters Date Type Department Care Team (Late st Contact Info) Description 10/17/2024 10:00 AM EDT Office Visit [place] [address] [place] [address] Federico Chester MD [address] [facility] [place] [phone] 10/17/2024 2:30 PM EDT Follow-Up [facility] Transplant [address] [place] [phone] Sean Aden, AIR CONDITIONING UNIT ASSEMBLER [address] [place] [address] 10/22/2024 9:30 AM EDT Ancillary Procedure [facility] [address] [place] [address] Health Maintenance Due Date Last Done Comments CT Colonography 1960 FIT-DNA 1960 FIT 1960 FOBT 1960 Medicare Annual Wellness (AWV) 1960 Sigmoidoscopy 1960 Diabetes: Retinopathy Screening 1970 Diabetes: Urine Protein Screening 12/27/1979 Pneumococcal Vaccine: Pediatrics (0 to 5 Years) and At-Risk Patients (6 to 64 Years) (1 of 2 - PCV) 12/27/1979 Zoster Vaccines (1 of 2) 12/27/1979 Adult Tetanus 1982 COVID-19 Vaccine ( - season) 2023 03/30/2023, 12/30/2021, 12/30/2021, Additional history exists Diabetes: Hemoglobin A1C 06/05/2024 024, 05/18/2023, 02/09/2023, Additional history exists Depression Screening 04/11/2025 04/11/2024 Colonoscopy 01/10/2034 01/11/2024, 02/01/2013 Colorectal Cancer Screening 01/10/2034 Influenza Vaccine Completed 01/26/2024, , 01/13/2022, Additional history exists HIB Vaccines Aged Out No longer eligi ble based on patient's age to complete this topic HPV Vaccines Aged Out No longer eligi ble based on patient's age to complete this topic IPV Vaccines Aged Out No longer eligi ble based on patient's age to complete this topic Meningococcal B Vaccine Aged Out No l onger eligible based on patient's age to complete this topic Meningococcal Vaccine Aged Out No badlomero tsar eligible based on patient's age to complete this topic Rotavirus Vaccines Aged Out No longer eligible based on patient's age to complete this topic Medical Devices Implanted Type Area [employer] Process Technician Device Identifier Shelf Expiration Date Model / Serial / Lot Stent Implanted:Qty: 7 Bilateral: Heart Pacer/Aicd Combo Bilateral: Heart Procedures Procedure Name Priority Date/Time Associated Diagnosis Comments ECG 12 LEAD UNIT PERFORMED Routine 09/18/2024 10:05 AM EDT Palpitations HEMOGLOBIN A1C Routine 05/18/2023 9:16 AM EST Impaired fasting glucose from Last 3 Months or Most Recently Relevant to Health Maintenance Results * ECG 12 lead unit performed (09/18/2024 10:05 AM EDT) Federico Chester MD ECG ORDERABLES Final Result * (ABNORMAL) Hemoglobin A1c (05/18/2023 9:16 AM EST) Hemoglobin A1C 6.4(H) 4.0 - 6.0 % 05/18/2023 1:20 PM EST [facility] Estimated Average Glucose 137 mg/dL 05/18/2023 1:20 PM EST [facility] Blood Venous blood specimen / Unknown Venipuncture / Unknown 05/18/2023 9:16 AM EST 05/18/2023 9:16 AM EST us Bobby Agee MD LAB BLOOD ORDERABLES Final Resul t [facility] [address] [place] [address] from Last 3 Months or Most Recently Relevant to Health Maintenance Insurance [employer] Advance Directives * Full Code (Latest Code Status on File) Date Activated Date Inactivated Comments 01/25/2023 3:23 AM 01/25/2023 9:56 PM Care Teams Service Technician Copier Relationship Specialty Start Date End Date Rosa M Del Toro MD PCP - General 01/25/22 Bobby Agee MD [address] [place] [address] [place] [address] Consulting Physician Urology 01/25/22 Petey Redding CNP [address] [place] [address] [place] [address] Nurse Practitioner Urology 09/27/22 Guido Campos MD [address] [place] [address] [place] [address] Consulting Physician Transplant Surgery 12/22/22
--- OUTSIDE RECORDS SUMMARY | 2024-10-14 08:30 | XMS_ITS | Encounter Summary ---
Author Organization [facility] Address [address] [place] [address] Care Team Providers Care Rn Utilization Management Um Name Role Phone Rosa M Del Toro MD Primary Care Provider [phone] Rosa M Platt RN Unavailable [phone] Rosa M Del Toro MD Unavailable Rosa M Del Toro MD Unavailable [phone] Reason for Visit * Reason Onset Date Comments Med Refill 07/26/2023 Encounter Details Date Type Department Care Team (Late st Contact Info) Description 07/26/2023 Refill [facility] [address] [place] [address] Rosa M Del Toro MD [address] [place] [address] History of kidney transplant (HCC) [...] How often do you attend chur or mandaeism services? 1 to 4 times per year 11/01/2022 Do you belong to any clubs o r organizations such as samaritan groups, unions, fraternal or athletic groups, or [...] Recorded Patient Health Questionnaire-2 Score 0 07/27/2023 [facility] [place] of Occupat ional Health - Occupational Stress [...] pleasure in doing things Not at all 07/27/2023 1:00 PM REINAT Domenica Montesinos MA Feeling down, depressed, or hopeless Not at all 07/27/2023 1:00 PM REINAT Domenica Montesinos MA Patient Health Questionnaire -2 Score 0 07/27/2023 1:00 PM Domenica Hoover MA documented as of this encounter Miscellaneous Notes * Telephone Encounter - Rosa M Del Toro MD - 07/28/2023 8:48 AM EDT Approving, but needs appt for additional refills. documented in this encounter Plan of Treatment Upcoming Encounters Date Type Department Care Team (Late st Contact Info) Description 11/04/2024 9:45 AM EDT Office Visit [facility] [address] [place] [phone] Kimberlyn Fishman MD [address] [place] [address] documented as of this encounter Visit Diagnoses Diagnosis History of kidney transplant (HCC) Kidney replaced by transplant documented in this encounter Additional Health Concerns Assessment Noted Time PHQ-9 Depression Total Score: 0 11/09/19 9:00 AM EDT documented as of this encounter Care Teams Rn Utilization Management Um Relationship Specialty Start Date End Date Rosa M Del Toro MD [address] [place] [address] PCP - General Family Medicine 10/25/22 Rosa M Del Toro MD [address] [place] [address] PCP - ACO Reach 08/16/23 05/23/24 Rosa M Del Toro MD [address] [place] [address] PCP - ACO Reach 05/31/24 07/18/24 Rosa M Platt RN [address] [place] [address] Registered Nurse Family Medicine 03/01/23 documented as of this encounter
--- OUTSIDE RECORDS SUMMARY | 2024-10-14 08:30 | XMS_ITS | Clinical Summary ---
Author Organization [facility] Healthcare Address [address] [place] [address] Care Team Providers Care Transcription Coordinator Name Role Phone Rosa M Del Toro MD Primary Care Provider Rosa M Platt RN Unavailable [phone] Allergies No known active allergies Medications ranolazine (Ranexa) 500 MG 12 hr tablet Take 500 mg by mouth in the morning and 500 mg before bedtime. Do not crush, chew, or split. . Active aspirin 81 MG EC tablet Take 81 mg by mouth in the morning. Active clopidogrel (Plavix) 75 MG tablet Take by mouth Daily. Active lisinopril 5 MG tablet Take by mouth Daily. Active empagliflozin (Jardiance) 10 MG Take 10 mg by mouth in the morning. 3 Active esomeprazole (NexIUM) [address] capsule Take 1 capsule by mouth in the morning. Active nitroglycerin (Nitrostat) 0.4 MG SL tabletIndications: Coronary artery disease involving [place] coronary artery of [place] heart with unstable angina pectoris (HCC) Place 1 tablet (0.4 mg) under the tongue every 5 (five) minutes if needed for chest pain. 90 tablet 12 3 Active metoprolol succinate XL (Toprol-XL) 200 MG 24 hr tablet Take 100 mg by mouth Daily 3 Active atorvastatin (Lipitor) 80 MG tablet Take 80 mg by mouth in the morning. 3 Active albuterol HFA 90 mcg/act inhalerIndications :Simple chronic bronchitis (HCC) Inhale 2 puffs every 4 (four) hours if needed for shortness of breath 18 g 4 Active isosorbide mononitrate ER (Imdur) 60 MG 24 hr tablet TAKE 1 TABLET BY MOUTH IN THE MORNING do not crush or chew 4 Active mycophenolate (Myfortic) 180 MG EC tabletIndications: Aftercare following organ transplant Take 1 tablet (180 mg) by mouth in the morning and 1 tablet (180 mg) before bedtime. 180 tablet 4 025 Active tacrolimus (Prograf) 0.5 MG capsuleIndications :History of kidney transplant (HCC) Take 1 capsule (0.5 mg) by mouth in the morning and 1 capsule (0.5 mg) before bedtime. 180 capsule 5 026 Active magnesium oxide (Mag-Ox) 400 (240 Mg) MG tabletIndications: History of kidney transplant (HCC) TAKE 1 TABLET BY MOUTH IN THE MORNING then TAKE 1 TABLET BY MOUTH IN THE EVENING then TAKE 1 TABLET BY MOUTH BEFORE bedtime 270 tablet 5 Active amoxicillin (Amoxil) 500 MG capsule TAKE 4 CAPSULES BY MOUTH ONE HOUR PRIOR TO DENTAL APPOINTMENT. 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 Also dispense test strips and lancets of insurance choice. 1 kit 5 026 Active Active Problems Problem Noted Date Diagnosed Date History of colon polyps 03/21/2024 Screen for colon cancer 03/21/2024 Glucosuria 03/18/2024 Cardiac arrest with ventricular fibrillation Chest pain 06/05/2023 Impaired fasting glucose 02/27/2023 Chronic obstructive pulmonary disease 01/24/2023 Assessment & Plan (10/03/2024 1:07 PM EDT): This has been very stable. Assessment & Plan (11/23/2023 1:08 PM EDT): This has been very stable. Assessment & Plan (07/27/2023 6:13 PM EDT): This has been very stable. PKD (polycystic kidney disease) 12/21/2022 Assessment & Plan (10/03/2024 1:07 PM EDT): Assessment & Plan (07/27/2023 6:16 PM EDT): S/P transplant and recent nephrectomy. 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 Next visit 12/07. Assessment & Plan (11/23/2023 1:09 PM EDT): Follows with dr Santiago. Assessment & Plan (07/27/2023 6:15 PM EDT): Follows with dr Santiago. History of kidney disease 11/08/2022 Hyperkalemia 11/08/2022 Hypervitaminosis A 11/08/2022 Lower urinary tract symptoms due to benign prostatic hyperplasia 11/08/2022 Male hypogonadism 11/08/2022 Microscopic hematuria 11/08/2022 Mixed hyperlipidemia 11/08/2022 Assessment & Plan (11/23/2023 1:05 PM EDT): Continue lipitor. Myocardial infarction 11/08/2022 Neuropathy 11/08/2022 Nocturia 11/08/2022 Other abnormality of red blood cells 11/08/2022 Status post insertion of hermila g-eluting stent into left anterior descending (LAD) artery for coronary artery disease 11/08/2022 Upper respiratory infection 11/08/2022 Ventricular tachycardia 11/08/2022 Age-related nuclear cataract of left eye 023 PCO (posterior capsular opacification), right Chronic systolic congestive heart failure 2022 Overview (11/08/2022): No signs of lfuid overload. ECHO with EF of 35% 4/23. Assessment & Plan (10/03/2024 1:07 PM EDT): No signs of fluid overload. Echo with EF of 35% 4/23. Doing great. Still has occasional dyspnea or pain. Cardio is happy with where he is at present. Assessment & Plan (11/23/2023 1:09 PM EDT): No signs of fluid overload. Echo with EF of 35% 4/23. Doing great. Still has occasional dyspnea or pain. Cardio is happy with where he is at present. Assessment & Plan (07/27/2023 6:15 PM EDT): No signs of fluid overload. Echo with EF of 35% /23. Doing great. Still has occasional dyspnea or pain. Cardio is happy with where he is at present. 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 Not sure what may be related to heart or to lungs or to COVID. This has improved since kidneys removed so may have been a component of that contributing aswell. Assessment & Plan (10/03/2024 1:07 PM EDT): Elevated hemoglobin 08/18/2022 Aftercare following organ transplant 05/04/2022 Electrolyte abnormality 05/04/2022 Immunosuppression 05/04/2022 Assessment & Plan (11/23/2023 1:10 PM EDT): Medications managed per transplant team. Will keep immunizations updated. Assessment & Plan (02/02/2023 6:34 PM EDT): Medications managed per transplant team. Will keep immunizations updated. Polycystic kidney disease, autosomal dominant Assessment & Plan (02/02/2023 6:33 PM EDT): Bilateral kidneys removed. 7 pounds each History of kidney transplant 12/30/2019 Overview (11/08/2022): Cont meds as per recommedations of renal team. Assessment & Plan (10/03/2024 1:07 PM EDT): Follows with transplant team. Increased infection risk sta tus post immunosuppressive therapy 12/30/2019 End-stage renal disease 01/20/2016 Assessment & Plan (10/03/2024 1:07 PM EDT): S/P Transplant. Hypertension 01/10/2014 Overview (11/08/2022): CONTROLLED AT HOME Acute bronchitis 03/28/2013 Hyperlipidemia 05/24/2012 Gouty arthropathy 02/16/2012 Overview (11/08/2022): STABLE Stage 3 chronic kidney disease 12/09/2009 Overview (11/08/2022): SEC TO ADPKD WITH BASELINE CREAT 2-2.5 Assessment & Plan (10/03/2024 1:07 PM EDT): Gastroesophageal reflux disease 12/09/2009 Assessment & Plan (07/27/2023 6:16 PM EDT): Continue nexium. Pyelonephritis 12/09/2009 Overview (11/08/2022): PKD Essential hypertension 04/17/1991 Overview (11/08/2022): CONTROLLED AT HOME Assessment & Plan (10/03/2024 1:07 PM EDT): Assessment & Plan (11/23/2023 1:10 PM EDT): Well controlled. Assessment & Plan (07/27/2023 6:15 PM EDT): Well controlled. Resolved Problems Problem Noted Date Diagnosed Date Resolved Date Active rickets 11/08/2022 07/27/2023 Encounters Date Type Department Care Team Description 10/03/2024 11:30 AM EDT Office Visit [facility] [address] [place] [phone] Rosa M Del Toro MD Wellness examination (Primary Dx); Simple chronic bronchitis (HCC); Post-COVID chronic dyspnea; Chronic systolic congestive heart failure (HCC); Essential hypertension ; End-stage renal disease ([facility]); PKD (polycystic kidney disease); Stage 3a chronic kidney disease ([facility]); History of kidney transplant (HCC); Dizziness; Type 2 diabetes mellitus with diabetic cataract (HCC); Type 2 diabetes mellitus with diabetic polyneuropathy ([facility]); Cardiomyopathy, unspecified (HCC) 10/03/2024 Telephone [facility] [address] [place] [phone] Rosa M Del Toro MD 10/03/2024 Bamboo flowsheet [facility] [address] [place] [phone] Rosa M Del Toro MD 10/03/2024 Travel 10/02/2024 Patient Outreach [facility] [address] [place] [address] Rosa M Platt RN 09/10/2024 Refill [facility] [address] [place] [phone] Rosa M Del Toro MD History of kidney transplant (HCC) 09/10/2024 Clinisync Result Encounter [facility] External Department Unsolicited Provider, Generic External Data 08/09/2024 Clinisync Result Encounter [facility] External Department Unsolicited Provider, Generic External Data from Last 3 Months Immunizations Immunization Administration Dates Next Due Influenza Whole 04/27/2012 Influenza, injectable, quadrivalent 12/16/2016 Influenza, injectable, quadr ivalent, preservative free 01/13/2023,01/13/2022,05/11/2018,2017,06/08/2017 Influenza, recombinant, quad rivalent, injectable, preservative free 02/01/2021,02/05/2019 Influenza, seasonal, injectable 01/27/2020,01/15,01/28/2015 Influenza, seasonal, injecta ble, preservative free 01/26/2024 Influenza, trivalent, adjuvanted 01/22/2020 Moderna Bivalent Booster Vaccination 12/30/2021 Moderna SARS-CoV-2 50mcg/0.5 mL Booster 12/30/2021 Moderna SARS-CoV-2 Vaccination 07/10/2014 SARS-CoV-2, Unspecified 12/30/2021 Family History Medical History Relation Name Comments Polycystic kidney disease Father Melanoma Neg Hx Relation Name Status Comments Father Mother Social History Tobacco Use Types Packs/Day Years Used Date Smoking Tobacco: Former Cigarettes Q uit: 04/17/2007 Smokeless Tobacco: Never Tobacco Cessation:Counseling Given: Not Answered Alcohol Use Standard Drinks/Week Comments Not Currently [...] How often do you attend chur or sabianism services? 1 to 4 times per year 11/01/2022 Do you belong to any clubs o r organizations such as orthodox groups, unions, fraternal or athletic groups, or [...] Recorded Patient Health Questionnaire-2 Score 0 10/03/2024 [facility] - Occupational Stress Questionnaire Answer Date Recorded [...] PM EDT Sexual Orientation Not on file Last Filed Vital Signs Vital Sign Reading Time Taken Comments Blood Pressure 120/66 10/03/2024 11:26 AM EDT Pulse 64 10/03/2024 11:26 AM EDT Temperature 36.3 C (97.4 F) 07/27/2023 1:35 PM EDT Respiratory Rate - - Oxygen Saturation 93% 10/03/2024 11:26 AM EDT Inhaled Oxygen Concentration - - Weight 92.7 kg (204 lb 6.4 oz) 10/03/2024 11:26 AM EDT Height 180.3 cm (5' 11 ) 10/03/2024 11:26 AM EDT Body Mass Index 28.51 10/03/2024 11:26 AM EDT Plan of Treatment Upcoming Encounters Date Type Department Care Team (Late st Contact Info) Description 11/04/2024 9:45 AM EDT Office Visit [facility] [address] [place] [address] Kimberlyn Fishman MD [address] [place] [address] Health Maintenance Due Date Last Done Comments CT Colonography 1960 FIT-DNA 1960 FIT 1960 FOBT 1960 Sigmoidoscopy 1960 Diabetes: Urine Protein Screening 12/27/1979 Diabetes: Hemoglobin A1C 06/05/2024 024, 05/18/2023, 05/18/2023, Additional history exists Diabetes: Retinopathy Screening 10/25/2024 10/25/2022, 10/25/2022, 10/25/2022, Additional history exists Medicare Annual Wellness (AWV) 10/03/2025 0 10/03/2024, 07/27/2023, 11/04/2021 Colonoscopy 01/25/2034 01/26/2024, 12/17, 02/01/2013 Colorectal Cancer Screening 01/25/2034 Influenza Vaccine Completed 01/26/2024, , 01/13/2022, Additional history exists Procedures Procedure Name Priority Date/Time Associated Diagnosis Comments SRMCOH TESTOSTERONE FREE/TOT EQUILIB Routine 09/10/2024 8:49 AM EDT TACROLIMUS (FK506), BLOOD Routine 09/10/2024 8:49 AM EDT METRO SEX BINDING HORMONE (SHBG), TESTOSTERONE, FREE AND BIOAVAILABLE Routine 09/10/2024 8:49 AM EDT BKV QUANT PCR Routine 09/10/2024 8:49 AM EDT MLR HEMOGLOBIN A1C Routine 09/10/2024 8: 49 AM EDT ALL LIPID PROFILE (FASTING) Routine 09/10/2024 8:49 AM EDT METRO BILIRUBIN, DIRECT Routine 09/10/2024 8:49 AM EDT ALL MAGNESIUM Routine 09/10/2024 8:49 AM EDT ALL PHOSPHOROUS Routine 09/10/2024 8:49 AM EDT ALL URIC ACID Routine 09/10/2024 8:49 AM EDT [facility] CMP (CMP) (FOR REMOTE [facility] USE) Routine 09/10/2024 8:49 AM EDT ALL CBC WITH AUTO DIFF Routine 8:49 AM EDT HEMOGLOBIN A1C Routine 09/10/2024 ALL MISCELLANEOUS TEST Routine 9:17 AM EDT METRO BILIRUBIN, DIRECT Routine 08/09/2024 9:17 AM EDT ALL MAGNESIUM Routine 08/09/2024 9:17 AM EDT ALL PHOSPHOROUS Routine 08/09/2024 9:17 AM EDT ALL URIC ACID Routine 08/09/2024 9:17 AM EDT [facility] CMP (CMP) (FOR REMOTE [facility] USE) Routine 08/09/2024 9:17 AM EDT ALL CBC WITH AUTO DIFF Routine 9:17 AM EDT HEMOGLOBIN A1C Routine 03/05/2024 Elevated fasting glucose HM COLONOSCOPY Routine 01/26/2024 3:11 PM EDT COLOR FUNDUS PHOTOGRAPHY - OU - BOTH EYES Routine 05/18/2021 12:00 PM EST from Last 3 Months or Most Recently Relevant to Health Maintenance Results * BKV QUANT PCR (09/10/2024 8:49 AM EDT) BKV DNA, QUANT PCR, PLASMA Negative Negative IU/mL [facility] Comment: No BK DNA detected. The linear range of the assay is 22 - 100,000,000 IU/mL. Performed at: [address] [id number] Rn Picu: Evan Orozco MD, Phone: [phone] [id number] BKV DNA,PLASMA TNP . TB 09/10/2024 8:49 AM EDT 09/10/2024 8:51 AM EDT Narrative [facility] - 09/11/2024 11:08 AM EDT Generic External Data Provider LAB BLOOD ORDERAB LES Final Result Performing Organization Address [facility] de Phone Number [facility] * TACROLIMUS (FK506), BLOOD (09/10/2024 8:49 AM EDT) TACROLIMUS (FK506), BLOOD 8.1 5.0 - 20.0 ng/mL [facility] Comment: This test was developed and its performance characteristics determined by [employer]. It has not been cleared or approved by the Food and Drug Administration. Target steady state trough concentration for Tacrolimus varies based on type of organ transplant immunosuppressive protocol and other patient specific factors. Tacrolimus trough concentrations should be interpreted in conjunction with clinical assessments of rejection and tolerability. Values obtained with different assay methods cannot be used interchangeably due to differences in assay methods and cross-reactivty with metabolites, nor should correction factors be applied. Therefore, consistent use of one assay for individual patients is recommended. Detection Limit = 0.5 ng/mL Performed by LC-MS/MS technology. Performed at: [address] [id number] Rn Picu: Evan Orozco MD, Phone: [phone] 09/10/2024 8:49 AM EDT 09/10/2024 8:51 AM EDT Narrative [facility] - 09/13/2024 10:07 PM EDT Generic External Data Provider LAB BLOOD ORDERAB LES Final Result Performing Organization Address [facility] de Phone Number [facility] * SRMCO TESTOSTERONE FREE/TOT EQUILIB (09/10/2024 8:49 AM EDT) TESTOSTERONE 399 264 - 916 ng/dL TB Comment: Adult male reference interval is based on a population of healthy nonobese males (BMI <30) between 19 and 39 years old. dangelo Mckeon.al. JCEM 2017,102;9715-0282. PMID: [id number]. FREE TESTOSTERONE(DIRE CT) 8.9 6.6 - 18.1 pg/mL TB Comment: Performed at: [address] [id number] Rn Picu: Dayne Mckenzie PhD, Phone: [phone] Performed at: [address] [id number] Rn Picu: Evan Orozco MD, Phone: [phone] 09/10/2024 8:49 AM EDT 09/10/2024 8:51 AM EDT Narrative [facility] - 09/13/2024 10:07 PM EDT Generic External Data Provider [facility] F [facility]al [facility] * (ABNORMAL) MLR HEMOGLOBIN A1C (09/10/2024 8:49 AM EDT) GLYCOHEMOGLOBIN A1C 6.4(H) 4.5 - 6.2 % TB Comment: ADA RECOMMENDED LIMIT 4.0 - 6.0 ADA THERAPEUTIC TARGET < 7.0 ACTION SUGGESTED > 7.0 ESTIMATED AVERAGE GLUCOSE 137 mg/dL TB 09/10/2024 8:49 AM EDT 09/10/2024 8:51 AM EDT Narrative [facility] - 09/10/2024 11:23 AM EDT Generic External Data Provider [facility] F inal Result Performing Organization Address City/[facility]/ZIP Co de Phone Number [facility] * METRO SEX BINDING HORMONE (SHBG), TESTOSTERONE, FREE AND BIOAVAILABLE (09/10/2024 8:49 AM EDT) SEX HORM BINDING GLOB, SERUM 31.2 19.3 - 76.4 nmol/L [facility]H Comment: Performed at: [address] [id number] Rn Picu: Dayne Mckenzie PhD, Phone: [phone] 09/10/2024 8:49 AM EDT 09/10/2024 8:51 AM EDT Narrative [facility] - 09/13/2024 10:07 PM EDT Generic External Data Provider [facility] F inal Result [facility] * METRO BILIRUBIN, DIRECT (09/10/2024 8:49 AM EDT) Only the most recent of2 resultswithin the time period is included. BILIRUBIN DIRECT 0.2 0.0 - 0.2 mg/dL TB 09/10/2024 8:49 AM EDT 09/10/2024 8:51 AM EDT Narrative [facility] - 09/10/2024 9:18 AM EDT Generic External Data Provider [facility] F inal Result Performing Organization Address City/[facility] Co de Phone Number [facility] * (ABNORMAL) [facility] CMP (CMP) (FOR REMOTE [facility] USE) (09/10/2024 8:49 AM EDT) Only the most recent of2 resultswithin the time period is included. SODIUM 144 136 - 145 mmol/L TBH POTASSIUM 4.9 3.5 - 5.1 mmol/L TBH CHLORIDE 105 98 - 107 mmol/L TBH CARBON DIOXIDE 29.2 21.0 - 32.0 mmol/L TBH ANION GAP 14.7 TBH GLUCOSE 141(H) 74 - 106 mg/dL TBH BLOOD UREA NITROGEN 21.0(H) 7.0 - 18.0 mg/dL TBH CREATININE 1.35(H) 0.70 - 1.30 mg/dL TBH TBH EGFR-AF EQUATORIAL GUINEAN >60 >=60 mL/min/1. 73m 2 TBH TBH EGFR-NON AF EQUATORIAL GUINEAN 53(L) >=60 mL/min/1. 73m 2 TBH BUN CREATININE RATIO 15.6 TBH CALCIUM 9.4 8.5 - 10.1 mg/dL TBH BILIRUBIN TOTAL 0.9 0.2 - 1.0 mg/dL TBH ASPARTATE AMINO TRANSFERASE 22 15 - 37 U/L TBH ALANINE AMINOTRANSFERASE 37 16 - 63 U/L TBH ALKALINE PHOSPHATASE 102 46 - 116 U/L TBH TOTAL PROTEIN 7.0 6.4 - 8.2 g/dL TBH ALBUMIN LEVEL 3.9 3.4 - 5.0 g/dL TBH GLOBULIN 3.1 g/dL TBH ALBUMIN GLOBULIN RATIO 1.3 TBH 09/10/2024 8:49 AM EDT 09/10/2024 8:51 AM EDT Narrative [facility] - 09/10/2024 9:18 AM EDT Generic External Data Provider [facility] F inal Result Performing Organization Address [facility] de Phone Number [facility] * ALL URIC ACID (09/10/2024 8:49 AM EDT) Only the most recent of2 resultswithin the time period is included. URIC ACID 6.3 3.5 - 7.2 mg/dL TB 09/10/2024 8:49 AM EDT 09/10/2024 8:51 AM EDT Narrative [facility] - 09/10/2024 9:18 AM EDT Generic External Data Provider CLIN[facility] F inal Result Performing Organization Address [facility] de Phone Number [facility] * ALL PHOSPHOROUS (09/10/2024 8:49 AM EDT) Only the most recent of2 resultswithin the time period is included. PHOSPHORUS 3.1 2.6 - 4.7 mg/dL TB 09/10/2024 8:49 AM EDT 09/10/2024 8:51 AM EDT Narrative [facility] - 09/10/2024 9:18 AM EDT Generic External Data Provider CLINISYNC F inal Result Performing Organization Address [facility] de Phone Number [facility] * ALL MAGNESIUM (09/10/2024 8:49 AM EDT) Only the most recent of2 resultswithin the time period is included. MAGNESIUM 1.8 1.8 - 2.4 mg/dL TB 09/10/2024 8:49 AM EDT 09/10/2024 8:51 AM EDT Narrative [facility] - 09/10/2024 9:18 AM EDT Generic External Data Provider CLIN[facility] F inal Result Performing Organization Address [facility] de Phone Number [facility] * ALL LIPID PROFILE (FASTING) (09/10/2024 8:49 AM EDT) Pathologist [facility] TRIGLYCERIDES 149 <=150 mg/dL TBH CHOLESTEROL 110 <=200 mg/dL TB HDL CHOLESTEROL 44 40 - 60 mg/dL TB Comment: > or =60 mg/dl - LOW CARDIOVASCULAR RISK <40 mg/dl - HIGH CARDIOVASCULAR RISK LDL CHOLESTEROL CALCULATED 36.2 mg/dL TB Comment: <100 mg/dl OPTIMAL 100-129 mg/dl NEAR OR ABOVE OPTIMAL 130-159 mg/dl BORDERLINE HIGH 160-189 mg/dl HIGH >190 mg/dl VERY HIGH VLDL CHOLESTEROL 29.8 mg/dL TB CHOL HDL RATIO 2.5 TB Comment: 3.3 - 4.4 LOW RISK 4.4 - 7.1 AVERAGE RISK 7.1 - 11.0 MODERATE RISK >11.0 HIGH RISK 09/10/2024 8:49 AM EDT 09/10/2024 8:51 AM EDT Narrative [facility] - 09/10/2024 9:18 AM EDT Generic External Data Provider [facility] F inal Result Performing Organization Address [facility] de Phone Number [facility] * (ABNORMAL) ALL CBC WITH AUTO DIFF (09/10/2024 8:49 AM EDT) Only the most recent of2 resultswithin the time period is included. Pathologist [facility] TB WBC 6.7 4.0 - 11.0 10 3/uL TBH TBH RBC 5.37 4.70 - 6.10 10 6/uL TBH TB HGB 15.4 14.0 - 18.0 g/dL TBH TBH HCT 48.0 42.0 - 54.0 % TBH TBH MCV 89.4 80.0 - 94.0 fL TBH TBH MCH 28.7 25.9 - 34.0 pg TBH TB MCHC 32.1 29.9 - 35.2 g/dL TBH TBH RDW 14.2 11.0 - 15.0 % TBH TBH PLT 234 150 - 450 10 3/uL TBH TBH MPV 10.3 9.5 - 13.5 fL TBH NEUTROPHILS PERCENT AUTO 72.5 43.0 - 75.0 % TBH LYMPHOCYTES PERCENT AUTO 15.2(L) 20.5 - 60.0 % TBH MONOCYTES PERCENT AUTO 10.6 1.7 - 12.0 % TBH TBH EO % 1.0 0.9 - 7.0 % TBH BASOPHILS PERCENT AUTO 0.6 0.2 - 2.0 % TBH IMMATURE GRANULOCYTES PCT AUTO 0.1 0.0 - 0.5 % TBH NEUTROPHILS ABSOLUTE AUTO 4.9 1.4 - 6.5 10 3/uL TBH LYMPHOCYTES ABSOLUTE AUTO 1.0(L) 1.2 - 3.8 10 3/uL TBH MONOCYTES ABSOLUTE AUTO 0.7 0.3 - 0.8 10 3/uL TBH TBH EO # 0.1 0.0 - 0.7 10 3/uL TBH BASOPHILS ABSOLUTE AUTO 0.0 0.0 - 0.1 10 3/uL TBH IMMATURE GRANULOCYTES ABS AUTO 0.01 0.00 - 0.03 10 3/uL TBH 09/10/2024 8:49 AM EDT 09/10/2024 8:51 AM EDT Narrative [facility] - 09/10/2024 9:08 AM EDT us Generic External Data Provider [facility] F inal Result [facility] * (ABNORMAL) HEMOGLOBIN A1C (09/10/2024) Blood 09/10/2024 us Rosa M Del Toro MD LAB BLOOD ORDERABLES Final Re sult * ALL MISCELLANEOUS TEST (08/09/2024 9:17 AM EDT) Pathologist [facility] MISCELLANEOUS TEST COMMENT . [facility] Comment: Test Ordered: [id number] Tacrolimus Rebaseline, [place] Tacrolimus by Immunoassay 6.0 ng/mL Reference Range: 5.0-20.0 Detection Limit = 0.8 ng/mL Target steady state trough concentration for Tacrolimus varies based on type of organ transplant immunosuppressive protocol and other patient specific factors. Tacrolimus trough concentrations should be interpreted in conjunction with clinical assessments of rejection and tolerability. Values obtained with different assay methods cannot be used interchangeably due to differences in assay methods and cross-reactivity with metabolites, nor should correction factors be applied. Therefore, consistent use of one assay for individual patients is recommended. Tacrolimus assay performed by [employer]. Please note reference interval change [employer] will offer rebaseline testing (Test No. [id number]) through August 14, 2024. The rebaseline test will include results from both the current method (Curiyo) and the new method (Malini). All test results indicate the gas collection system operator of the test on the laboratory report. The rebaseline test for tacrolimus immunoassay is charged at the amezquita for the new test; the test for the retiring method is performed at no additional charge. Tacrolimus IA by Thermo 8.1 ng/mL Reference Range: . Performed at: [address] [id number] Rn Picu: Dayne Mckenzie PhD, Phone: [phone] 08/09/2024 9:17 AM EDT 08/09/2024 9:30 AM EDT Narrative [facility] - 08/11/2024 3:08 PM EDT [id number] Tacrolimus Rebaseline, [place] us Generic External Data Provider [facility] F [facility]al Result [facility] [facility] * Hemoglobin A1c (03/05/2024) Pathologist [facility] HEMOGLOBIN A1C 6.4 [facility] Blood Venous blood specimen / Unknown 03/05/2024 us Rosa M Del Toro MD LAB BLOOD ORDERABLES Final Re sult [facility] * Hm Colonoscopy (01/26/2024 3:11 PM EDT) Anatomical Region Laterality Modality Other us Noms Provider Unallocated HEALTH MAINTENANCE Final Result * Color Fundus Photography - OU - Both Eyes (05/18/2021 12:00 PM EST) Anatomical Region Laterality Modality Head Fundus Photograp hy 05/18/2021 12:0 0 PM EST Narrative 05/18/2021 12:00 PM EST PERFORMED AT [facility] LOCATION:[id number] [facility] Procedure Note CONVERSION, GENERIC - 08/31/2022 PERFORMED AT [facility] LOCATION:[id number] [facility] Rosa M Del Toro MD OPHTH PHOTOGRAPHY Final Resul t from Last 3 Months or Most Recently Relevant to Health Maintenance Insurance [employer] MEDICARE ADVANTAGE HUMAN Care Teams Transcription Coordinator Relationship Specialty Start Date End Date Rosa M Del Toro MD [address] [place] [address] PCP - General Family Medicine 10/25/22 Rosa M Platt RN [address] [place] [address] Registered Nurse Family Medicine 03/01/23
--- OUTSIDE RECORDS SUMMARY | 2024-10-14 08:30 | XMS_ITS ---
Author Organization [facility] itisamar (HIE interaction) Address [address] [place] [id number] Care Team Providers Care Levelman Name Role Phone Unavailable Unavailable Unavailable Allergies, Adverse Reactions, Alerts This patient has no known allergies or adverse reactions. Problems This patient has no known problems.
--- OUTSIDE RECORDS SUMMARY | 2024-10-14 08:30 | XMS_ITS | Encounter Summary ---
Author Organization [facility] Address [address] [place] [address] Care Team Providers Care Mechanic Sound Technician Name Role Phone Rosa M Gonzales MD Primary Care Provider [phone] Rosa M Platt RN Unavailable [phone] Rosa M Gonzales MD Unavailable [phone] Rosa M Gonzales MD Unavailable [phone] Encounter Details Date Type Department Care Team (Late st Contact Info) Description 12/07/2023 Clinisync Result Encounter [facility] External Department Unsolicited Provider, Generic External Data Social History Tobacco Use Types Packs/Day Years [...] often do you attend chur ch or mu-ism services? 1 to 4 times per year 11/01/2022 Do you belong to any clubs o r organizations such as taoism groups, unions, fraternal or athletic groups, or [...] Recorded Patient Health Questionnaire-2 Score 0 11/23/2023 [facility] - Occupational Stress Questionnaire Answer Date Recorded [...] GALLARDO [address] [place] [address] Kimberlyn Fishman MD [address] [place] [address] documented as of this encounter Procedures Procedure Name Priority Date/Time Associated Diagnosis Comments CA ECHO DOPPLER COMPLETE 12/07/2023 11:34 AM EDT documented in this encounter Results * CA ECHO DOPPLER COMPLETE (12/07/2023 11:34 AM EDT) Anatomical Region Laterality Modality Other 12/07/2023 11:3 4 AM EDT Narrative 12/07/2023 11:35 AM EDT [facility] [place] [id number] Cardiology Report Signed Patient: VISHAL DUKE MR#: [id number] : 1960 Acct:[id number] Age/Sex: 62 / M ADM Date: 12/07/23 Loc: CARD Attending Dr: Federico Brown M.D. Ordering Physician: Federico Brown M.D. Date of Service: 12/07/23 Procedure(s): CA echo doppler complete Accession Number(s): [id number] cc: Federico Brown M.D.; ROSA M GONZALES Patient Name: VISHAL DUKE MR#: [id number] : 1960 Exam Date: 12/07/2023 Ordering Doctor: DR FEDERICO BROWN M.D. 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 DESCRIPTION: COMPLETE ECHOCARDIOGRAM Real-time transthoracic echocardiography with 2D, M-mode, spectral and color flow Doppler performed. QUALITY: Technical quality was good. LEFT VENTRICLE: Normal chamber size. Proximal septal hypertrophy (sigmoid septum). LV EF: Global left ventricular systolic function is lower normal limits; visually estimated ejection fraction is 50%. The distal half of the septum is hypokinetic. DIASTOLIC: Unable to assess diastolic function ATRIAL SEPTUM: Inadequately seen. LEFT ATRIUM: Normal chamber size. RIGHT ATRIUM: Normal chamber size. RIGHT VENTRICLE: Normal chamber size. Normal systolic function. Pacer wire present. TRICUSPID VALVE: Normal mobility and thickness. No stenosis with trivial regurgitation. Unable to assess right-sided pressures due to lack of measurable tricuspid regurgitation. MITRAL VALVE: Normal mobility and thickness. No evidence of mitral valve stenosis. There is no mitral annular calcification. Mild mitral regurgitation. AORTIC VALVE: Normal trileaflet appearance. No visible sclerosis. Normal leaflet mobility. No evidence of aortic valve stenosis. Mild aortic regurgitation. AORTIC ROOT: Normal diameter and appearance. PULMONIC VALVE: Normal thickness and mobility. No stenosis. Trivial regurgitation. PERICARDIUM: No evidence of pericardial effusion. IVC: Collapses with inspirations. IVC is normal in size. CONCLUSION: 1. Global left ventricular systolic function is lower normal limits; visually estimated ejection fraction is 50% 2. Normal right ventricular size and systolic function 3. Mild mitral regurgitation 4. Mild aortic valve regurgitation Adult Echocardiography Procedure Report Left Ventricle LVEDD (3.7 - 5.6 cm): 5.06 cm LVESD (2.2 - 4.0 cm): 3.59 cm LVIVS thickness (0.6 - 1.2 cm): 1.27 cm LVPW thickness (0.5 - 1.0 cm): 1.09 cm e': 0.05 m/s E - e': 6.16 LVOT Max Gradient: 3.38 mm[Hg] LVOT Area (cm2): 0.92 m/s Peak Velocity (LVOT): 0.92 m/s Mean Velocity (LVOT): 0.66 m/s LVOT Diameter 2.03 cm Left Atrium LA Volume Index (2D A2C): 22.70 ml/m2 Left Atrium Systolic Dimension: 4.50 cm Mitral Valve MV E to A Ratio: 0.63 Mitral Valve A-Wave Peak Velocity: 0.52 m/s Mitral Valve E-Wave Peak Velocity: 0.33 m/s Right Ventricle Aorta AO Root Diam: 4.01 cm Aortic Valve AoV Area (Peak Francisco): 2.62 cm2, 2.62 cm2 AoV Area (VTI): 2.25 cm2, 2.25 cm2 Peak Velocity(Antegrade Flow): 1.13 m/s Peak Gradient(Antegrade Flow): 5.12 mm[Hg] Mean Velocity(Antegrade Flow): 0.76 m/s Mean Gradient(Antegrade Flow): 2.64 mm[Hg] Velocity Time Integral: 25.90 cm Tricuspid Valve Pulmonic Valve Mean Gradient: 1.50 mm[Hg] Mean Velocity: 0.57 m/s Peak Velocity: 0.84 m/s, 0.75 m/s Peak Gradient: 2.28 mm[Hg], 2.83 mm[Hg] Right Atrium Right Atrium Systolic Pressure: 32.29 ml, 32.29 ml Dictated by: Federico Brown M.D. on 12/07/2023 at 11:30 Approved by: Federico Brown M.D. on 12/07/2023 at 11:34 Dictated By: Federico Brown M.D. Signed By: 12/07/23 1135 DD/ 1134 TD/TT: Hat Marker: Procedure Note Radiology, Radiologist, - 12/07/2023 [place] [address] Cardiology Report Signed Patient: VISHAL DUKE DMR#: [id number] : 1960cct:[id number] Age/Sex: 62 / MADM Date: 12/07/23 Loc: CARD Attending Dr: Federico Brown M.D. Ordering Physician: Federico Brown M.D. Date of Service: 12/07/23 Procedure(s): CA echo doppler complete Accession Number(s): [id number] cc: Federico Brown M.D.; ROSA M GONZALES Patient Name: VISHAL DUKE MR#: [id number] : 1960 Exam Date: 12/07/2023 Ordering Doctor: DR FEDERICO BROWN M.D. ECHOCARDIOGRAM REPORT PROCEDURE: CA ECHO DOPPLER COMPLETE INDICATIONS: Cardiomyopathy, CABGx3, cardiac stents, polycystic kidneyand liver - kidney transplants, pacemaker COMPARISON: None. DESCRIPTION: COMPLETE ECHOCARDIOGRAM Real-time transthoracic echocardiography with 2D, M-mode, spectral and color flow Dopplerperformed. QUALITY: Technical quality was good. LEFT VENTRICLE: Normal chamber size. Proximal septal hypertrophy(sigmoid septum). LV EF: Global left ventricular systolic function is lower normallimits; visually estimated ejection fraction is 50%. The distal half of theseptum is hypokinetic. DIASTOLIC: Unable to assess diastolic function ATRIAL SEPTUM: Inadequately seen. LEFT ATRIUM: Normal chamber size. RIGHT ATRIUM: Normal chamber size. RIGHT VENTRICLE: Normal chamber size. Normal systolic function.Pacer wire present. TRICUSPID VALVE: Normal mobility and thickness. No stenosis withtrivial regurgitation. Unable to assess right-sided pressures due to lack of measurable tricuspid regurgitation. MITRAL VALVE: Normal mobility and thickness. No evidence of mitralvalve stenosis. There is no mitral annular calcification. Mild mitral regurgitation. AORTIC VALVE: Normal trileaflet appearance. No visible sclerosis.Normal leaflet mobility. No evidence of aortic valve stenosis. Mild aortic regurgitation. AORTIC ROOT: Normal diameter and appearance. PULMONIC VALVE: Normal thickness and mobility. No stenosis. Trivial regurgitation. PERICARDIUM: No evidence of pericardial effusion. IVC: Collapses with inspirations. IVC is normal in size. CONCLUSION: 1. Global left ventricular systolic function is lower normal limits;visually estimated ejection fraction is 50% 2. Normal right ventricular size and systolic function 3. Mild mitral regurgitation 4. Mild aortic valve regurgitation Adult Echocardiography Procedure Report Left Ventricle LVEDD (3.7 - 5.6 cm): 5.06 cm LVESD (2.2 - 4.0 cm): 3.59 cm LVIVS thickness (0.6 - 1.2 cm): 1.27 cm LVPW thickness (0.5 - 1.0 cm): 1.09 cm e': 0.05 m/s E - e': 6.16 LVOT Max Gradient: 3.38 mm[Hg] LVOT Area (cm2): 0.92 m/s Peak Velocity (LVOT): 0.92 m/s Mean Velocity (LVOT): 0.66 m/s LVOT Diameter 2.03 cm Left Atrium LA Volume Index (2D A2C): 22.70 ml/m2 Left Atrium Systolic Dimension: 4.50 cm Mitral Valve MV E to A Ratio: 0.63 Mitral Valve A-Wave Peak Velocity: 0.52 m/s Mitral Valve E-Wave Peak Velocity: 0.33 m/s Right Ventricle Aorta AO Root Diam: 4.01 cm Aortic Valve AoV Area (Peak Francisco): 2.62 cm2, 2.62 cm2 AoV Area (VTI): 2.25 cm2, 2.25 cm2 Peak Velocity(Antegrade Flow): 1.13 m/s Peak Gradient(Antegrade Flow): 5.12 mm[Hg] Mean Velocity(Antegrade Flow): 0.76 m/s Mean Gradient(Antegrade Flow): 2.64 mm[Hg] Velocity Time Integral: 25.90 cm Tricuspid Valve Pulmonic Valve Mean Gradient: 1.50 mm[Hg] Mean Velocity: 0.57 m/s Peak Velocity: 0.84 m/s, 0.75 m/s Peak Gradient: 2.28 mm[Hg], 2.83 mm[Hg] Right Atrium Right Atrium Systolic Pressure: 32.29 ml, 32.29 ml Dictated by: Federico Brown M.D. on 12/07/2023 at 11:30 Approved by: Federico Brown M.D. on 12/07/2023 at 11:34 Dictated By: Federico Brown M.D. Signed By:12/07/23 1135 DD/ 1134 TD/TT: Hat Marker: us Generic External Data Provider [facility] Final Result documented in this encounter Visit Diagnoses Not on filedocumented in this encounter Additional Health Concerns Assessment Noted Time PHQ-9 Depression Total Score: 0 11/09/19 9:00 AM EDT documented as of this encounter Care Teams Mechanic Sound Technician Relationship Specialty Start Date End Date Rosa M Gonzales MD [address] [place] [address] PCP - General Family Medicine 10/25/22 Rosa M Gonzales MD [address] [facility] [place] [address] PCP - ACO Reach 08/16/23 05/23/24 Rosa M Gonzales MD [address] [facility] [place] [address] PCP - ACO Reach 05/31/24 07/18/24 Rosa M Platt RN [address] [facility] [place] [address] Registered Nurse Family Medicine 03/01/23 documented as of this encounter
--- OUTSIDE RECORDS SUMMARY | 2024-10-14 08:30 | XMS_ITS | Encounter Summary ---
Author Organization [facility] Address [address] [facility] [place] [address] Care Team Providers Care Lamination Inspector Name Role Phone Rosa M Del Toro MD Primary Care Provider [phone] Rosa M Platt RN Unavailable [phone] Rosa M Del Toro MD Unavailable [phone] Rosa M Del Toro MD Unavailable [phone] Reason for Visit * Reason Onset Date Comments Med Refill 03/19/2024 Encounter Details Date Type Department Care Team (Late st Contact Info) Description 03/19/2024 Refill [facility] [address] [place] [address] Rosa M Dle Toro MD [address] [place] [address] Aftercare following organ transplant (Primary Dx) Social History Tobacco Use Types [...] How often do you attend chur or mosque services? 1 to 4 times per year 11/01/2022 Do you belong to any clubs o r organizations such as buddhist groups, unions, fraternal or athletic groups, or [...] Recorded Patient Health Questionnaire-2 Score 0 03/21/2024 [facility] Occupat ional Health - Occupational Stress [...] pleasure in doing things Not at all 03/21/2024 3:22 PM Adrianne Overton MA Feeling down, depressed, or hopeless Not at all 03/21/2024 3:22 PM Adrianne Overton MA Patient Health Questionnaire -2 Score 0 03/21/2024 3:22 PM Adrianne Overton MA documented as of this encounter Miscellaneous Notes * Telephone Encounter - Rosa M Del Toro MD - 03/21/2024 11:09 AM EST Approving, but needs appt for additional refills. documented in this encounter Plan of Treatment Upcoming Encounters Date Type Department Care Team (Late st Contact Info) Description 11/04/2024 9:45 AM EDT Office Visit [facility] [address] [place] [id number] Kimberlyn Fishman MD [address] [place] [address] documented as of this encounter Visit Diagnoses Diagnosis Aftercare following organ transplant- Primary documented in this encounter Additional Health Concerns Assessment Noted Time PHQ-9 Depression Total Score: 0 11/09/19 9:00 AM EDT documented as of this encounter Care Teams Lamination Inspector Relationship Specialty Start Date End Date Rosa M Del Toro MD [address] [place] [address] PCP - General Family Medicine 10/25/22 Rosa M Del Toro MD [address] [place] [address] PCP - ACO Reach 08/16/23 05/23/24 Rosa M Del Toro MD [address] [place] [address] PCP - ACO Reach 05/31/24 07/18/24 Rosa M Platt RN [address] [place] [address] Registered Nurse Family Medicine 03/01/23 documented as of this encounter
--- OUTSIDE RECORDS SUMMARY | 2024-10-14 08:30 | XMS_ITS ---
Author Organization [facility] Address [address] [place] [address] Care Team Providers Care Cloth Printing Utility Worker Name Role Phone Rosa M Del Toro MD Primary Care Provider [phone] Bobby Agee MD Unavailable Petey Redding CNP Unavailable [phone] Guido Campos MD Unavailable [phone] Transplant Episode Kidney Recipient [facility] ([place], [place]) - [facility] Organ Received: Left Kidney Transplanted on 08/15/2017 Marked as Active Follow-up on 08/15/2017 Kidney CoordinatorCitlaly Newell RN Phone: N/A Fax: N/A Email: N/A [place] Organ Diagnosis Organ Primary Contributory Kidney Polycystic Kidneys Infection History Noted Survival Infection Treatment Organism Resolved 11/08/2022 5 years 2 months Upper respiratory infection 12/09/2009 Pyelonephritis Donor Information Organ ABO Source Meets Risk Criteria HLA Match Mismatches Cross Match Left Kidney Transplanted A1 DBD No A: B: DR: Left Kidney Donor Serology Results Anti-CMV CMV IgG: Positive HBsAg HBsAg: Negative Anti-HBcAb HBC Total: Negative HBsAb No results on file HBV DNA No results on file Anti-HCV HCV: Negative Anti-HIV I/II HIV-1: Negative Anti-HTLV I/II HTLV: Negative RPR/VDRL RPR: Negative EBV IgG EBV VCA IgG: Positive EBV IgM EBV VCA IgM: Negative EBNA No results on file Toxoplasma No results on file SARS CoV-2 No results on file Care Team Name Role Phone Fax Email Citlaly Newell RN Kidney Coordinator N/A N/A N/ A Torin Marquez MD Surgeon N/A N/A N/A Events Post-Transplant Pre-Transplant Admitted: 08/15/2017 Referred: 10/15/2012 Transplanted: 08/15/2017 Evaluation began: 3 Discharged: 08/18/2017 UNOS qualified: 10/09/2014 Center waitlisted: 3 Appointments (09/13/2024 - 11/13/2024) When With Visit Type Description 10/17/2024 Transplant - Gabbi Aden U p Appointment Dialysis History Dialysis History Start End Type Comments Center 02/01/2016 08/15/2017 Hemo [facility] Dialysis Center Information Center Phone Fax Address [facility] [phone] [address] [place] [address]
--- OUTSIDE RECORDS SUMMARY | 2024-10-14 08:30 | XMS_ITS | Encounter Summary ---
Author Organization [facility] Address [address] [facility] [place] [address] Care Team Providers Care Manufacturing Clerk Name Role Phone Rosa M Del Toro MD Unavailable Rosa M Del Toro MD Primary Care Provider [phone] Rosa M Platt RN Unavailable [phone] Rosa M Del Toro MD Unavailable Rosa M Del Toro MD Unavailable [phone] Encounter Details Date Type Department Care Team (Late st Contact Info) Description 10/25/2022 Abstract [facility] [address] [facility] [address] [place] [address] Kimberlyn Fishman MD [address] [facility] [address] [place] [address] Social History Tobacco Use Types Packs/Day Years Used Date Smoking Tobacco: Former Cigarettes Q uit: 04/17/2007 Smokeless Tobacco: Never Tobacco Cessation:Counseling Given: Not Answered Alcohol Use Standard Drinks/Week Comments Never 0 (1 standard drink = 0.6 oz pur e alcohol) caffeine: 1-2 cups per day Sex and Gender Information Value Date Recorded [...] [address] [place] [address] Kimberlyn Fishman MD [address] [place] [address] documented as of this encounter Visit Diagnoses Not on filedocumented in this encounter Care Teams Manufacturing Clerk Relationship Specialty Start Date End Date Rosa M Del Toro MD [address] [place] [address] PCP - ACO Reach 09/08/22 06/15/23 Rosa M Del Toro MD [address] [place] [address] PCP - General Family Medicine 10/25/22 Rosa M Del Toro MD [address] [place] [address] PCP - ACO Reach 08/16/23 05/23/24 Rosa M Del Toro MD [address] [place] [address] PCP - ACO Reach 05/31/24 07/18/24 Rosa M Platt RN [address] [place] [address] Registered Nurse Family Medicine 03/01/23 documented as of this encounter
[2024-10-14 09:01] LABS: Alanine Aminotransferase 29 U/L (16-63); Albumin Globulin Ratio 1.2; Albumin Level 3.6 g/dL (3.4-5.0); Alkaline Phosphatase 94 U/L (46-116); Anion Gap 16.1; Aspartate Amino Transferase 18 U/L (15-37); BUN Creatinine Ratio 16.3; Bilirubin Direct 0.1 mg/dL (0.0-0.2); Bilirubin Total 0.6 mg/dL (0.2-1.0); Calcium 9.1 mg/dL (8.5-10.1); Carbon Dioxide 26.3 mmol/L (21.0-32.0); Chloride 107 mmol/L (98-107); Estimated GFR (African America >60 (>=60 mL/min/1.73m^2); Estimated GFR (Non-African Ame 56 (>=60 mL/min/1.73m^2); Globulin 3.1 g/dL; Glucose 133 mg/dL (74-106); Magnesium 1.7 mg/dL (1.8-2.4); Phosphorus 3.4 mg/dL (2.6-4.7); Potassium 4.4 mmol/L (3.5-5.1); Sodium 145 mmol/L (136-145); Total Protein 6.7 g/dL (6.4-8.2); Uric Acid 6.7 mg/dL (3.5-7.2)
[2024-10-14 09:23] LABS: Basophils Percent Auto 0.6 % (0.2-2.0); Eosinophils Absolute Auto 0.1 10^3/uL (0.0-0.7); Eosinophils Percent Auto 1.7 % (0.9-7.0); Hematocrit 46.9 % (42.0-54.0); Hemoglobin 15.2 g/dL (14.0-18.0); Immature Granulocytes Abs Auto 0.03 10^3/uL (0.00-0.03); Immature Granulocytes Pct Auto 0.4 % (0.0-0.5); Lymphocytes Absolute Auto 1.1 10^3/uL (1.2-3.8); Lymphocytes Percent Auto 14.9 % (20.5-60.0); Mean Corpuscular HGB Conc 32.4 g/dL (29.9-35.2); Mean Corpuscular Volume 89.3 fL (80.0-94.0); Mean Platelet Volume 10.9 fL (9.5-13.5); Monocytes Absolute Auto 0.6 10^3/uL (0.3-0.8); Monocytes Percent Auto 8.8 % (1.7-12.0); Neutrophils Absolute Auto 5.2 10^3/uL (1.4-6.5); Neutrophils Percent Auto 73.6 % (43.0-75.0); Platelet Count 231 10^3/uL (150-450); Red Blood Count 5.25 10^6/uL (4.70-6.10); Red Cell Distribution Width 14.6 % (11.0-15.0); White Blood Count 7.1 10^3/uL (4.0-11.0)
[2024-10-16 16:09] LABS: Tacrolimus (FK506), Blood 8.5 ng/mL (5.0-20.0)
== END 2024-10-14 08:20 | disposition home or self-care (01) ==
LOC: LAB 08:26
PROVIDERS: PCP Family Medicine; Visit Provider Nurse Practitioner Family
DX: R73.01 Impaired fasting glucose (principal); Z94.0 Kidney transplant status
CPT/HCPCS: 36415; 80053; 80197; 82248; 83735; 84100; 84550; 85025

== ENCOUNTER 2024-10-15 09:39 | Outpatient (OUT) | payer MEDICARE, SELFPAY ==
--- OUTSIDE RECORDS SUMMARY | 2024-10-03 11:30 | XMS_ITS | Encounter Summary ---
Author Organization [facility] Address [address] [place] [address] Care Team Providers Care Real Estate Legal Assistant Name Role Phone Rosa M Del Toro MD Primary Care Provider [phone] Rosa M Platt RN Unavailable [phone] Encounter Details Date Type Department Care Team (Latest Contact Info) Description 10/03/2024 11:30 AM EDT Office Visit [facility] [address] [place] [address] Rosa M Del Toro MD [address] [place] [address] Wellness examination (Primary Dx); Simple chronic bronchitis (HCC); Post-COVID chronic dyspnea; Chronic systolic congestive heart failure (HCC); Essential hypertension ; End-stage renal disease (HCC); PKD (polycystic kidney disease); Stage 3a chronic kidney disease ([facility]); History of kidney transplant (HCC); Dizziness; Type 2 diabetes mellitus with diabetic cataract (HCC); Type 2 diabetes mellitus with diabetic polyneuropathy (HCC); Cardiomyopathy, unspecified (HCC) Social History Tobacco Use Types Packs/Day Years Used Date Smoking Tobacco: Former Cigarettes Q uit: 04/17/2007 Smokeless Tobacco: Never Alcohol Use Standard Drinks/Week Comments Not Currently 1 (1 standard drink = 0.6 oz pure alcohol) Caffeine intake : 1-2 cups per day Humiliation, Afraid, Rape, and Kick questionnair e Answer Date Recorded Within the last year, have y ou been afraid of your partner or ex-partner? No 11/01/2022 Within the last year, have y ou been humiliated or emotionally abused in other ways by your partner or ex-partner? No Within the last year, have y ou been kicked, hit, slapped, or otherwise physically hurt by your partner or ex-partner? No 11/01/2022 Within the last year, have y ou been raped or forced to have any kind of sexual activity by your partner or ex-partner? No 11/01/2022 Social Connection and Isolat ion Panel [NHANES] Answer Date Recorded In a typical week, how many times do you talk on the phone with family, friends, or neighbors? More than three times a week 11/01/2022 How often do you get togethe r with friends or relatives? Three times a week 11/01/2022 How often do you attend chur ch or latter-day services? 1 to 4 times per year 11/01/2022 Do you belong to any clubs o r organizations such as jain groups, unions, fraternal or athletic groups, or school groups? Yes 11/01/2022 How often do you attend meet ings of the clubs or organizations you belong to? 1 to 4 times per year 11/01/2022 Are you , , di vorced, , never , or living with a partner? 11/01/2022 AUDIT-C Answer Date Recorded Q1: How often do you have a drink containing alc ohol? Monthly or less 11/01/2022 Q2: How many drinks containi ng alcohol do you have on a typical day when you are drinking? 1 or 2 11/01/2022 Q3: How often do you have si x or more drinks on one occasion? Never 11/01/2022 Overall Financial Resource Strain (CARDIA) Answe r Date Recorded How hard is it for you to pa y for the very basics like food, housing, medical care, and heating? Not hard at all 11/01/2022 PHQ-2 Answer Date Recorded Patient Health Questionnaire-2 Score 0 10/03/2024 [facility] of Occupat ional Health - Occupational Stress Questionnaire Answer Date Recorded Do you feel stress - tense, restless, nervous, or anxious, or unable to sleep at night because your mind is troubled all the time - these days? Not at all 11/01/2022 Exercise Vital Sign Answer Date Recorde d On average, how many days pe r week do you engage in moderate to strenuous exercise (like a brisk walk)? 4 days 11/01/2022 On average, how many minutes do you engage in exercise at this level? 50 min 11/01/2022 Hunger Vital Sign Answer Date Recorded Within the past 12 months, y ou worried that your food would run out before you got the money to buy more. Never true 11/02/19 23 Within the past 12 months, t he food you bought just didn't last and you didn't have money to get more. Never true 11/01/2022 PRAPARE - Transportation Answer Date Re corded In the past 12 months, has l ack of transportation kept you from medical appointments or from getting medications? No 10/15 In the past 12 months, has l ack of transportation kept you from meetings, work, or from getting things needed for daily living? No 11/01/2022 Housing Stability Vital Sign Answer Mario e Recorded In the last 12 months, was t here a time when you were not able to pay the mortgage or rent on time? No 11/01/2022 In the last 12 months, how many places have you lived? 1 11/01/2022 Unstable Housing in the Last Year Not on file 11/01/2022 Sex and Gender Information Value Date Recorded Sex Assigned at Not on file Legal Sex Male 7:40 PM EDT Gender Identity Male 06/29/2022 7:40 PM EDT Sexual Orientation Not on file documented as of this encounter Last Filed Vital Signs Vital Sign Reading Time Taken Comments Blood Pressure 120/66 10/03/2024 11:26 AM EDT Pulse 64 10/03/2024 11:26 AM EDT Temperature - - Respiratory Rate - - Oxygen Saturation 93% 10/03/2024 11:26 AM EDT Inhaled Oxygen Concentration - - Weight 92.7 kg (204 lb 6.4 oz) 10/03/2024 11:26 AM EDT Height 180.3 cm (5' 11 ) 10/03/2024 11:26 AM EDT Body Mass Index 28.51 10/03/2024 11:26 AM EDT documented in this encounter Functional Status * Over the past 2 weeks, how often have you been bothered by any of the following problems? Question Answer Date of Assessment Author Little interest or pleasure in doing things Not at all 10/03/2024 11:32 AM Adrianne Ruiz MA Feeling down, depressed, or hopeless Not at all 10/03/2024 11:32 AM Adrianne Ruiz MA Patient Health Questionnaire-2 Score 0 10/03/2024 11:32 AM REINAT Russel To MA * Question Answer Date of Assessment Author Trouble falling or staying asleep, or sleeping too much Not at all 10/03/2024 11:32 AM REINAT Adrianne Geiger MA Feeling tired or having little energy Not at all 10/03/2024 11:32 AM Adrianne Ruiz MA Poor appetite or overeating Not at all 10/03/2024 11 :32 AM Adrianne Ruiz MA Feeling bad about yourself - or that you are a failure or have let yourself or your family down Not at all 10/03/2024 11:32 AM Adrianne Ruiz MA Trouble concentrating on things, such as reading the newspaper or watching television Not at all 10/03/2024 11:32 AM Adrianne Ruiz MA Moving or speaking so slowly that other people could have noticed? Or the opposite - being so fidgety or restless that you have been moving around a lot more than usual. Not at all 10/03/2024 11:32 AM Adrianne Camp ms, MA Thoughts that you would be better off or hurting yourself in some way Not at all 10/03/2024 11:32 AM Bailey Ruiz MA Patient Health Questionnaire-9 Score 0 10/03/2024 11:32 AM Russel Ruiz MA documented as of this encounter Progress Notes * Rosa M Del Toro MD - 10/03/2024 11:30 AM EDTAssociated Problem(s): Chronic obstructive pulmonary disease (HCC) This has been very stable. * Rosa M Del Toro MD - 10/03/2024 11:30 AM EDTAssociated Problem(s): Chronic systolic congestive heart failure (HCC) No signs of fluid overload. Echo with EF of 35% 08/07. Doing great. Still has occasional dyspnea or pain. Cardio is happy with where he is at present. * Rosa M Del Toro MD - 10/03/2024 11:30 AM EDTAssociated Problem(s): End-stage renal disease (HCC) S/P Transplant. * Rosa M Del Toro MD - 10/03/2024 11:30 AM EDTAssociated Problem(s): Post-COVID chronic dyspnea * Rosa M Del Toro MD - 10/03/2024 11:30 AM EDTAssociated Problem(s): Essential hypertension * Rosa M Del Toro MD - 10/03/2024 11:30 AM EDTAssociated Problem(s): PKD (polycystic kidney disease) * Rosa M Del Toro MD - 10/03/2024 11:30 AM EDTAssociated Problem(s): Stage 3 chronic kidney disease ([facility]) * Rosa M Del Toro MD - 10/03/2024 11:30 AM EDTAssociated Problem(s): History of kidney transplant (HCC) Follows with transplant team. * Rosa M Del Toro MD - 10/03/2024 11:30 AM EDT Subjective Patient ID: Vishal To is a 63 y.o. male who presents for dizziness the past 2 months Over the past 2 weeks, how often have you been bothered by any of the following problems? Little interest or pleasure in doing things: Not at all Feeling down, depressed, or hopeless: Not at all Patient Health Questionnaire-2 Score: 0 Over the past 2 weeks, how often have you been bothered by any of the following problems? Trouble falling or staying asleep, or sleeping too much: Not at all Feeling tired or having little energy: Not at all Poor appetite or overeating: Not at all Feeling bad about yourself - or that you are a failure or have let yourself or your family down: Not at all Trouble concentrating on things, such as reading the newspaper or watching television: Not at all Moving or speaking so slowly that other people could have noticed? Or the opposite - being so fidgety or restless that you have been moving around a lot more than usual.: Not at all Thoughts that you would be better off or hurting yourself in some way: Not at all Patient Health Questionnaire-9 Score: 0 Sherman Fall Risk History of Falling, Immediate or Within 3 Months: No Secondary Diagnosis: No Ambulatory Aid: Walks without aid/bedrest/nurse assist Intravenous Therapy/Heparin Lock: No Gait/Transferring: Normal/bedrest/immobile Mental Status: Oriented to own ability Sherman Fall Risk Score: 0 Health Risk Assessment Form Do you need help eating, bathing, using the toilet, dressing, or getting around your home?: No Can you prepare your own meals?: Yes Can you do your own housework without help?: Yes Can you shop for groceries or clothes without help?: Yes Do you exercise for about 20 minutes 3 or more days a week?: Yes How confident are you that you can control and manage most of your health problems?: Very confident Can you mange your money, credit cards and accounts, pay bills and taxes?: Yes Vision Screening: Yes, patient sees regular sexual assault counsellor/metal sprayer Hearing Screening: Yes, concerned about hearing loss Cognitive Screening Self Assessment: No overt cognitive deficiency is apparent by direct observation Three Word Registration: Captain, Garden, Picture Clock Drawing: Normal Clock - 2 Three Word Recall: 2/3 words correct - 2 Total Score (0-5 Points): 4 Pain Assessment Pain Score: 2 History of Present Illness The patient presents for evaluation of dyspnea, dizziness, diabetes mellitus, and shingles. He recently returned from a vacation in [place], during which he experienced difficulty breathing in the airport. Symptoms are exacerbated by hot weather and humidity, and he describes a burning sensation that subsides after resting for 5 to 10 minutes. If he continues to exert himself, the discomfort intensifies, necessitating the use of nitroglycerin. He reports no numbness in his arm. These symptoms have been consistent since his COVID-19 infection. Despite being informed that his lungs are healthy, he has discontinued visits to the senior software engineering manager. He finds some relief from inhalers and monitors his oxygen levels at home, which typically range from 95 to 96 percent. He also reports occasio nal leg swelling, particularly in hot weather, but did not experience this during his recent trip to [place]. He has been experiencing frequent dizziness, which he attributes to either low blood pressure or high blood sugar levels. His marine superintendent recently conducted an EKG, which yielded normal results, andhas scheduled an echocardiogram for 10/15/2024. His cardiac medications remain unchanged. He does not monitor his blood sugar levels during these episodes. His blood pressure readings vary, sometimesmeasuring as low as 90/50, but can increase to 110 systolic within 5 minutes. Mild dizziness episodes can be managed by standing still for 5 to 10 seconds, but severe episodes require him to hold onto something for support and can last up to 20 seconds. These severe episodes occur approximately once every few weeks, while minor episodes are more frequent. He is currently on Jardiance, prescribed by his marine superintendent, and undergoes monthly lab tests ordered by his fiber optic splicer due to a kidney transplant. His A1c is monitored every 3 months. He has been informed by his urologist that there is no protein in his urine. He maintains an active lifestyle, walking daily and playing with his dogs, although he acknowledges that his stamina varies from day today. He undergoes annual eye examinations and has had cataract surgery in both eyes. He continues to experience itching from shingles and applies anti-itch cream for relief. PAST SURGICAL HISTORY: Cataract surgery on both eyes Objective BP 120/66 Pulse 64 Ht 5' 11 Wt 204 lb 6.4 oz SpO2 93% BMI 28.51 kg/m² Physical Exam Physical Exam General Appearance: Normal. Vital signs: Within normal limits. HEENT: Within normal limits. Respiratory: Clear to auscultation, no wheezing, rales or rhonchi. Cardiovascular: regular rate and rhythm with no murmur. Extremities: no edema, palpable pulses. Skin: Warm and dry, no rash. Neurological: Normal. Psychiatric: Normal. Assessment & Plan Wellness examination Discussed height, weight and BMI. Encouraged healthy diet and regular exercise. Discussed vaccines and encouraged yearly flu shot. Annual eye and dental exam. Vaccines and cancer screens reviewed forcompleteness. Screen labs as needed. Assessed needs for tools in the home for independence. Living will and durable power of traffic law attorney reviewed. Updated patient problem list and reviewed all current medications with patient. Given time to ask questions. Simple chronic bronchitis (HCC) This has been very stable. Post-COVID chronic dyspnea Chronic systolic congestive heart failure (HCC) No signs of fluid overload. Echo with EF of 35% 08/07. Doing great. Still has occasional dyspnea or pain. Cardio is happy with where he is at present. Essential hypertension End-stage renal disease ([facility]) S/P Transplant. PKD (polycystic kidney disease) Stage 3a chronic kidney disease ([facility]) History of kidney transplant ([facility]) Follows with transplant team. Dizziness Being evaluated by cardiology. 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 Also dispense test strips and lancets of insurance choice. Cardiomyopathy, unspecified (HCC) Assessment & Plan 1. Dyspnea. - Reports experiencing dyspnea, particularly in hot and humid conditions, which improves with rest or nitroglycerin. - Oxygen levels at home usually run at 95-96%. - Advised to continue using inhalers as needed. - No changes in condition noted over the past several years. 2. Dizziness. - Experiences frequent dizziness, which may be related to fluctuations in blood pressure or blood glucose levels. - Blood pressure readings vary significantly, sometimes as low as 90/50. - Advised to monitor blood pressure and blood glucose levels during these episodes. - A glucometer will be provided to check blood sugar levels during dizzy episodes. 3. Diabetes Mellitus. - A1c is elevated at 6.4, indicating borderline diabetes. - Currently on Jardiance, prescribed by marine superintendent, which also helps manage blood sugar. - No additional medications will be added at this time. - Advised to inform sexual assault counsellor about elevated blood sugar levels during next visit. 4. Shingles. - Continues to experience itching from previous shingles. - Uses anti-itch cream for relief. - Reports scarring and persistent itching on affected areas. 5. Health Maintenance. - Advised to receive influenza vaccine in the fall. - Recommended to consider RSV vaccine as soon as it becomes available through insurance. - Medicare wellness questions will be documented during this visit. documented in this encounter Plan of Treatment Upcoming Encounters Date Type Department Care Team (Late st Contact Info) Description 11/04/2024 9:45 AM EDT Office Visit [facility] [address] [place] [address] Kimberlyn Fishman MD [address] [place] [address] documented as of this encounter Procedures Procedure Name Priority Date/Time Associated Diagnosis Comments HEMOGLOBIN A1C Routine 09/10/2024 documented in this encounter Results * (ABNORMAL) HEMOGLOBIN A1C (09/10/2024) Blood 09/10/2024 us Rosa M Del Toro MD LAB BLOOD ORDERABLES Final Re sult documented in this encounter Visit Diagnoses Diagnosis Wellness examination- Primary Simple chronic bronchitis (HCC) Simple chronic bronchitis Post-COVID chronic dyspnea Chronic systolic congestive heart failure (HCC) Essential hypertension Unspecified essential hypertension End-stage renal disease (HCC) PKD (polycystic kidney disease) Congenital polycystic kidney, unspecified type Stage 3a chronic kidney disease (CMS-HCC) History of kidney transplant (HCC) Kidney replaced by transplant Dizziness Dizziness and giddiness 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
--- OUTSIDE RECORDS SUMMARY | 2024-10-15 09:41 | XMS_ITS | Continuity of Care Document ---
Author Organization [facility] Address [address] [place] [address] Phone [phone]
--- OUTSIDE RECORDS SUMMARY | 2024-10-15 09:41 | XMS_ITS | Referral Summary ---
Author Organization [facility] Address [address] [place] [address] Care Team Providers Care Handmade Tile Artist Name Role Phone Rosa M Del Toro MD Primary Care Provider [phone] Bobby Agee MD Unavailable Petey Redding CNP Unavailable [phone] Guido Campos MD Unavailable [phone] Encounters Date Type Department Care Team Description 10/06/[address] [address] Federico Chester MD Essential hypertension (Primary Dx); Aftercare following organ transplant 09/18/[address] [address] Vi Ballard MA 09/18/2024 9:45 AM EDT Office Visit [address] [address] Federico Chester MD Congestive heart failure, unspecified HF chronicity, unspecified heart failure type (CMS/HCC) (Primary Dx); Coronary artery disease, unspecified vessel or lesion type, unspecified whether angina present, unspecified whether king salmon or transplanted heart; Gastroesophageal reflux disease without esophagitis; Dizziness; Palpitations; Ischemic cardiomyopathy 09/10/2024 Refill [place] [address] [place] [address] Federico Chester MD Coronary artery disease, unspecified vessel or lesion type, unspecified whether angina present, unspecified whether king salmon or transplanted heart 08/28/2024 Refill [facility] [address] [facility] [place] [address] Malissa To MA Palpitations; Coronary artery disease, unspecified vessel or lesion type, unspecified whether angina present, unspecified whether king salmon or transplanted heart; Chest pain, unspecified type; Gastroesophageal reflux disease without esophagitis 08/26/2024 Refill [facility] [address] [facility] [address] Federico Chester MD Coronary artery disease, unspecified vessel or lesion type, unspecified whether angina present, unspecified whether king salmon or transplanted heart; Chest pain, unspecified type; Gastroesophageal reflux disease without esophagitis; Palpitations from Last 3 Months Allergies No known active allergies Medications aspirin [...] shortness of breath. 8.5 g 2 10/25/19 Active methocarbamol (Robaxin) 500 mg tabletIndicatio ns:ADPKD [...] type, unspecified whether angina present, unspecified whether king salmon or transplanted heart Take 0.5 tablets (100 mg) by mouth once daily as directed. Do not crush or chew. 90 tablet 3 12/19/19 24 Active Additional Information Patient not taking.Reported on 09/18/2024 nitroglycerin (Nitrostat) 0.4 mg SL tabletIndicatio ns:Coronary artery disease involving king salmon coronary artery of king salmon heart without angina pectoris Place 1 tablet [...] once daily as directed. 90 tablet 3 05/22/19 25 026 Active tacrolimus (Prograf) 0.5 mg capsuleIndicati [...] type, unspecified whether angina present, unspecified whether king salmon or transplanted heart Take 1 tablet (500 mg) by mouth two times daily. Do not crush, chew, or split. 180 tablet 08/29/19 026 Active atorvastatin (Lipitor) 80 mg tabletIndicatio ns:Coronary artery disease, unspecified vessel or lesion type, unspecified whether angina present, unspecified whether king salmon or transplanted heart Take 1 tablet (80 [...] type, unspecified whether angina present, unspecified whether king salmon or transplanted heart Take 1 tablet (75 mg) by mouth once daily as directed. 90 tablet 3 08/29/19 25 026 Active lisinopril 5 mg tabletIndicatio ns:Aftercare [...] 11/08/2022 12/05/2022 Coronary artery disease invo lving king salmon coronary artery of king salmon heart with unstable angina pectoris 11/08/2022 12/05/2022 [...] transplant 12/30/201911/16 End-stage renal disease 01/20/2016 12/06/19 23 Acute bronchitis 03/28/2013 12/05/2022 Stage 4 chronic [...] AT HOME CONTROLLED AT HOME Elevated hematocrit Immunizations Immunization Administration Dates Next Due Moderna Covid-19 vaccine, 12&up 03/30/2023 Social History Tobacco Use Types Packs/Day Years [...] place to sleep or slept in a nursing home (including now)? No 01/25/2023 Hunger Vital Sign [...] Description 10/17/2024 10:00 AM EDT Office Visit [place] [address] [place] [address] Federico Chester MD [address] [facility] [place] [address] 10/17/2024 2:30 PM EDT Follow-Up [facility] [place] Transplant [address] [place] [id number] Sean Aden, SKIDWAY WORKER [address] [place] [address] 10/22/2024 9:30 AM EDT Ancillary Procedure [facility] [address] [place] [address] Medical Devices Implanted Type Area Equal Opportunity Director Device Identifier Shelf Expiration Date Model / [...] - 6.0 % 05/18/2023 1:20 PM EST [facility] Estimated Average Glucose 137 mg/dL 05/18/2023 1:20 PM EST [facility] Blood Venous blood specimen / Unknown Venipuncture / Unknown 05/18/2023 9:16 AM EST 05/18/2023 9:16 AM EST Bobby Agee MD LAB BLOOD ORDERABLES Final Resul t [facility] [address] [place] [address] from Last 3 Months or Most Recently Relevant to Health Maintenance Insurance [employer] MEDICARE ADVANTAGE [employer] MEDICARE ADVANTAGE Advance Directives * Full Code (Latest Code Status on File) Date Activated Date Inactivated Comments 01/25/2023 3:23 AM 01/25/2023 9:56 PM Care Teams Handmade Tile Artist Relationship Specialty Start Date End Date Rosa M Del Toro MD PCP - General 01/25/22 Bobby Agee MD [facility] [address] [place] [address] Consulting Physician Urology 01/25/22 Petey Redding CNP [address] [place] [address] [place] [address] Nurse Practitioner Urology 09/27/22 Guido Campos MD [address] [place] [address] [place] [address] Consulting Physician Transplant Surgery 12/22/22
--- OUTSIDE RECORDS SUMMARY | 2024-10-15 09:41 | XMS_ITS | Clinical Summary ---
Author Organization [employer] [facility] tem Address [id number] [address] [place] [address] Care Team Providers Care Sr. Pricing Analyst Name Role Phone Unavailable Primary Care Provider [...] exists Medical Devices Not on file Insurance [facility] MEDICARE
--- OUTSIDE RECORDS SUMMARY | 2024-10-15 09:41 | XMS_ITS | Encounter Summary ---
Author Organization [facility] Address [address] [place] [address] Care Team Providers Care Granulator Machine Operator Name Role Phone Rosa M Del Toro MD Primary Care Provider [phone] Bobby Agee MD Unavailable Petey Redding CNP Unavailable [phone] Guido Campos MD Unavailable [phone] Reason for Visit * Reason Comments Med Refill Encounter Details Date Type Department Care Team (Late st Contact Info) Description 10/06/2024 Refill [facility] Heart at [facility] [address] [place] [address] Federico Chester MD [address] [facility] [place] [address] Essential hypertension (Primary Dx); Aftercare [...] Recorded Patient Health Questionnaire-2 Score 0 04/11/2024 [place] Safety & Environment Answer Date Rec orded [...] place to sleep or slept in a alf (including now)? No 01/25/2023 Hunger Vital Sign [...] Description 10/17/2024 10:00 AM EDT Office Visit [facility] [address] [place] [address] Federico Chester MD [address] [facility] [place] [phone] 10/17/2024 2:30 PM EDT Follow-Up [facility] Transplant [address] [place] [phone] Sean Aden CNP [address] [place] [id number] 10/22/2024 9:30 AM EDT Ancillary Procedure [facility] Heart at [place] [address] [place] [address] documented as of this encounter Visit Diagnoses Diagnosis Essential hypertension- Primary Unspecified essential hypertension Aftercare following organ transplant documented in this encounter Care Teams Granulator Machine Operator Relationship Specialty Start Date End Date Rosa M Del Toro MD PCP - General 01/25/22 Bobby Agee MD [address] [place] [address] [place] [address] Consulting Physician Urology 01/25/22 Petey Redding CNP [address] [place] [address] [address] [place] [address] Nurse Practitioner Urology 09/27/22 Guido Campos MD [address] [place] [address] [place] [address] Consulting Physician Transplant Surgery 12/22/22 documented as of this encounter
--- OUTSIDE RECORDS SUMMARY | 2024-10-15 09:41 | XMS_ITS | Encounter Summary ---
Author Organization [facility] Address [address] [place] [address] Care Team Providers Care Kaiawhina Kohanga Reo Name Role Phone Rosa M Del Toro MD Primary Care Provider [phone] Rosa M Platt RN Unavailable [phone] Encounter Details Date Type Department Care Team (Late st Contact Info) Description 10/14/2024 Clinisync Result Encounter [facility] External Department Unsolicited [...] often do you attend chur ch or hinduism services? 1 to 4 times per year 11/01/2022 Do you belong to any clubs o r organizations such as orthodoxy groups, unions, fraternal or athletic groups, or [...] Recorded Patient Health Questionnaire-2 Score 0 10/03/2024 [facility] of Occupat ional Health - [...] GALLARDO [address] [place] [address] Kimberlyn Fishman MD [address] [place] [address] documented as of this encounter Procedures Procedure Name Priority Date/Time Associated Diagnosis Comments METRO BILIRUBIN, DIRECT Routine 10/14/2024 8:35 AM EDT [facility] CMP (CMP) (FOR REMOTE [facility] USE) Routine 10/14/2024 8:35 AM EDT ALL URIC ACID Routine 10/14/2024 8:35 AM EDT ALL PHOSPHOROUS Routine 10/14/2024 8:35 AM EDT ALL MAGNESIUM Routine 10/14/2024 8:35 AM EDT ALL CBC WITH AUTO DIFF Routine 10/14/2024 8:35 AM EDT documented in this encounter Results * (ABNORMAL) ALL CBC WITH AUTO DIFF (10/14/2024 8:35 AM EDT) [facility] TB WBC 7.1 4.0 - 11.0 10 3/uL TBH TBH RBC 5.25 4.70 - 6.10 10 6/uL TBH TBH HGB 15.2 14.0 - 18.0 g/dL TBH TBH HCT 46.9 42.0 - 54.0 % TBH TBH MCV 89.3 80.0 - 94.0 fL TBH TBH MCH 29.0 25.9 - 34.0 pg TBH TBH MCHC 32.4 29.9 - 35.2 g/dL TBH TBH RDW 14.6 11.0 - 15.0 % TBH TBH PLT 231 150 - 450 10 3/uL TBH TBH MPV 10.9 9.5 - 13.5 fL TBH NEUTROPHILS PERCENT AUTO 73.6 43.0 - 75.0 % TBH LYMPHOCYTES PERCENT AUTO 14.9(L) 20.5 - 60.0 % TBH MONOCYTES PERCENT AUTO 8.8 1.7 - 12.0 % TBH TBH EO % 1.7 0.9 - 7.0 % TBH BASOPHILS PERCENT AUTO 0.6 0.2 - 2.0 % TBH IMMATURE GRANULOCYTES PCT AUTO 0.4 0.0 - 0.5 % TBH NEUTROPHILS ABSOLUTE AUTO 5.2 1.4 - 6.5 10 3/uL TBH LYMPHOCYTES ABSOLUTE AUTO 1.1(L) 1.2 - 3.8 10 3/uL TBH MONOCYTES ABSOLUTE AUTO 0.6 0.3 - 0.8 10 3/uL TBH TBH EO # 0.1 0.0 - 0.7 10 3/uL TBH BASOPHILS ABSOLUTE AUTO 0.0 0.0 - 0.1 10 3/uL TBH IMMATURE GRANULOCYTES ABS AUTO 0.03 0.00 - 0.03 10 3/uL TBH 10/14/2024 8:35 AM EDT 10/14/2024 8:36 AM EDT Narrative [facility] - 10/14/2024 10:18 AM EDT us Generic External Data Provider [facility] F inal Result [facility] * METRO BILIRUBIN, DIRECT (10/14/2024 8:35 AM EDT) BILIRUBIN DIRECT 0.1 0.0 - 0.2 mg/dL TBH 10/14/2024 8:35 AM EDT 10/14/2024 8:36 AM EDT Narrative [facility] - 10/14/2024 9:02 AM EDT Generic External Data Provider [facility] F inal Result Performing Organization Address City/[facility]/ZIP Co de Phone Number [facility] * (ABNORMAL) ALL MAGNESIUM (10/14/2024 8:35 AM EDT) MAGNESIUM 1.7(L) 1.8 - 2.4 mg/dL TBH 10/14/2024 8:35 AM EDT 10/14/2024 8:36 AM EDT Narrative [facility] - 10/14/2024 9:02 AM EDT Generic External Data Provider [facility] F inal Result Performing Organization Address City/[facility] Co de Phone Number [facility] * ALL PHOSPHOROUS (10/14/2024 8:35 AM EDT) PHOSPHORUS 3.4 2.6 - 4.7 mg/dL TBH 10/14/2024 8:35 AM EDT 10/14/2024 8:36 AM EDT Narrative [facility] - 10/14/2024 9:02 AM EDT Generic External Data Provider CLIN[facility] F inal Result Performing Organization Address City/[facility] Co de Phone Number [facility] * ALL URIC ACID (10/14/2024 8:35 AM EDT) URIC ACID 6.7 3.5 - 7.2 mg/dL TBH 10/14/2024 8:35 AM EDT 10/14/2024 8:36 AM EDT Narrative [facility] - 10/14/2024 9:02 AM EDT us Generic External Data Provider HELEN magallon Result [facility] TB * (ABNORMAL) [facility] CMP (CMP) (FOR REMOTE [facility] USE) (10/14/2024 8:35 AM EDT) SODIUM 145 136 - 145 mmol/L TBH POTASSIUM 4.4 3.5 - 5.1 mmol/L TBH CHLORIDE 107 98 - 107 mmol/L TBH CARBON DIOXIDE 26.3 21.0 - 32.0 mmol/L TBH ANION GAP 16.1 TBH GLUCOSE 133(H) 74 - 106 mg/dL TBH BLOOD UREA NITROGEN 21.0(H) 7.0 - 18.0 mg/dL TBH CREATININE 1.29 0.70 - 1.30 mg/dL TBH TBH EGFR-AF LATVIAN >60 >=60 mL/min/1. 73m 2 TBH TBH EGFR-NON AF LATVIAN 56(L) >=60 mL/min/1. 73m 2 TBH BUN CREATININE RATIO 16.3 TBH CALCIUM 9.1 8.5 - 10.1 mg/dL TBH BILIRUBIN TOTAL 0.6 0.2 - 1.0 mg/dL TBH ASPARTATE AMINO TRANSFERASE 18 15 - 37 U/L TBH ALANINE AMINOTRANSFERASE 29 16 - 63 U/L TBH ALKALINE PHOSPHATASE 94 46 - 116 U/L TBH TOTAL PROTEIN 6.7 6.4 - 8.2 g/dL TBH ALBUMIN LEVEL 3.6 3.4 - 5.0 g/dL TBH GLOBULIN 3.1 g/dL TBH ALBUMIN GLOBULIN RATIO 1.2 TBH 10/14/2024 8:35 AM EDT 10/14/2024 8:36 AM EDT Narrative [facility] - 10/14/2024 9:02 AM EDT Generic External Data Provider HELEN magallon Result [facility] TB documented in this encounter Visit Diagnoses Not on filedocumented in this encounter Additional Health Concerns Assessment Noted Time PHQ-9 Depression Total Score: 0 10/04/19 25 11:32 AM EDT documented as of this encounter Care Teams Kaiawhina Kohanga Reo Relationship Specialty Start Date End Date Rosa M Del Toro MD [address] [place] [address] PCP - General Family Medicine 10/25/22 Rosa M Platt, RN [address] [place] [address] Registered Nurse Family Medicine 03/01/23 documented as of this encounter
--- OUTSIDE RECORDS SUMMARY | 2024-10-15 09:41 | XMS_ITS | Encounter Summary ---
Author Organization [facility] Address [address] [facility] [place] [address] Care Team Providers Care Calf Skinner Name Role Phone Rosa M Del Toro MD Primary Care Provider [phone] Rosa M Platt RN Unavailable [phone] Rosa M Del Toro MD Unavailable Rosa M Del Toro MD Unavailable [phone] Reason for Visit * Reason Onset Date Comments Med Refill 05/19/2024 Encounter Details Date Type Department Care Team (Late st Contact Info) Description 05/19/2024 Refill [facility] [address] [place] [address] Rosa M Del Toro MD [address] [place] [address] History of kidney transplant (HCC) [...] Recorded Patient Health Questionnaire-2 Score 0 03/21/2024 [facility] of Occupat ional Health - Occupational Stress [...] DERM [address] [place] [phone] Kimberlyn Fishman MD [address] [place] [address] documented as of this encounter Visit Diagnoses Diagnosis History of kidney transplant (HCC) Kidney replaced by transplant documented in this encounter Additional Health Concerns Assessment Noted Time PHQ-9 Depression Total Score: 0 11/09/19 9:00 AM EDT documented as of this encounter Care Teams Calf Skinner Relationship Specialty Start Date End Date Rosa M Del Toro MD [address] [place] [address] PCP - General Family Medicine 10/25/22 Rosa M Del Toro MD [address] [place] [address] PCP - ACO Reach 08/16/23 05/23/24 Rosa M Del Toro MD [address] [facility] [place] [address] PCP - ACO Reach 05/31/24 07/18/24 Rosa M Platt RN [address] [facility] [place] [address] Registered Nurse Family Medicine 03/01/23 documented as of this encounter
--- OUTSIDE RECORDS SUMMARY | 2024-10-15 09:41 | XMS_ITS | Encounter Summary ---
Author Organization [facility] Address [address] [facility] [place] [address] Care Team Providers Care Advertising Campaign Manager Name Role Phone Rosa M Del Toro MD Unavailable [phone] Rosa M Del Toro MD Primary Care Provider Rosa M Platt RN Unavailable [phone] Rosa M Del Toro MD Unavailable Rosa M Del Toro MD Unavailable [phone] Reason for Visit * Reason Comments Med Refill Encounter Details Date Type Department Care Team (Late st Contact Info) Description 12/21/2022 Refill [facility] [address] [place] [phone] Rosa M Del Toro MD [address] [place], [place] [id number] Kidney transplant status (HCC) Social History Tobacco [...] How often do you attend chur or zoroastrian services? 1 to 4 times per year 11/01/2022 Do you belong to any clubs o r organizations such as alevism groups, unions, fraternal or athletic groups, or [...] Questionnaire-2 Score 0 11/08/2022 [facility] of Occupat ional Health - Occupational Stress [...] GALLARDO [address] [place] [address] Kimberlyn Fishman MD [address] [place] [address] documented as of this encounter Visit Diagnoses Diagnosis Kidney transplant status (HCC) documented in this encounter Additional Health Concerns Assessment Noted Time PHQ-9 Depression Total Score: 0 11/09/19 9:00 AM EDT documented as of this encounter Care Teams Advertising Campaign Manager Relationship Specialty Start Date End Date Rosa M Del Toro MD [address] [place] [address] PCP - ACO Reach 09/08/22 06/15/23 Rosa M Del Toro MD [address] [place] [address] PCP - General Family Medicine 10/25/22 Rosa M Del Toro MD [address] [facility] [place] [address] PCP - ACO Reach 08/16/23 05/23/24 Rosa M Del Toro MD [address] [facility] [place] [address] PCP - ACO Reach 05/31/24 07/18/24 Rosa M Platt RN [address] [facility] [place] [address] Registered Nurse Family Medicine 03/01/23 documented as of this encounter
--- OUTSIDE RECORDS SUMMARY | 2024-10-15 09:41 | XMS_ITS | Clinical Summary ---
Author Organization [facility] Address [address] [place] [address] Phone Care Team Providers Care Family Support Specialist Name Role Phone Rosa M Del Toro MD Primary Care Provider [phone] Social History Tobacco Use Types Packs/Day Years [...] of Treatment Not on file Care Teams Family Support Specialist Relationship Specialty Start Date End Date Rosa M Del Toro MD [address] [place] [address] PCP - General 04/23/21
--- OUTSIDE RECORDS SUMMARY | 2024-10-15 09:41 | XMS_ITS | Encounter Summary ---
Author Organization [facility] Address [address] [facility] [place] [address] Care Team Providers Care Paperhanger Supervisor Name Role Phone Rosa M Del Toro MD Primary Care Provider [phone] Rosa M Platt RN Unavailable [phone] Rosa M Del Toro MD Unavailable Rosa M Del Toro MD Unavailable [phone] Reason for Visit * Reason Onset Date Comments Med Refill 03/19/2024 Encounter Details Date Type Department Care Team (Late st Contact Info) Description 03/19/2024 Refill [facility] [address] [place] [address] Rosa M Del Toro MD [address] [place] [address] Aftercare following organ transplant (Primary [...] any clubs o r organizations such as caodaism groups, unions, fraternal or athletic groups, or [...] Recorded Patient Health Questionnaire-2 Score 0 03/21/2024 [facility] [place] of Occupat ional Health - Occupational Stress [...] [address] [place] [phone] Kimberlyn Fishman MD [address] [place] [address] documented as of this encounter Visit Diagnoses Diagnosis Aftercare following organ transplant- Primary documented in this encounter Additional Health Concerns Assessment Noted Time PHQ-9 Depression Total Score: 0 11/09/19 9:00 AM EDT documented as of this encounter Care Teams Paperhanger Supervisor Relationship Specialty Start Date End Date Rosa M Del Toro MD [address] [place] [address] PCP - General Family Medicine 10/25/22 Rosa M Del Toro MD [address] [place] [address] PCP - ACO Reach 08/16/23 05/23/24 Rosa M Del Toro MD [address] [place] [address] PCP - ACO Reach 05/31/24 07/18/24 Rosa M Platt RN [address] [place] [address] Registered Nurse Family Medicine 03/01/23 documented as of this encounter
--- OUTSIDE RECORDS SUMMARY | 2024-10-15 09:41 | XMS_ITS | Encounter Summary ---
Author Organization [facility] Address [address] [place] [address] Care Team Providers Care Baseball Winder Name Role Phone Rosa M Del Toro MD Primary Care Provider Rosa M Platt RN Unavailable [phone] Rosa M Del Toro MD Unavailable Rosa M Del Toro MD Unavailable [phone] Encounter Details Date Type Department Care Team (Late st Contact Info) Description 01/26/2024 Orders Only [facility] [address] [place] [address] Unallocated, Noms Provider, [address] [place], [place] [id number] Social History Tobacco Use Types Packs/Day Years [...] How often do you attend chur or muslim services? 1 to 4 times per year 11/01/2022 Do you belong to any clubs o r organizations such as spiritism groups, unions, fraternal or athletic groups, or [...] Recorded Patient Health Questionnaire-2 Score 0 11/23/2023 [facility] of Occupat ional Health - Occupational Stress [...] GALLARDO [address] [place] [address] Kimberlyn Fishman MD [address] [place] [address] documented as of this encounter Procedures Procedure [...] documented as of this encounter Care Teams Baseball Winder Relationship Specialty Start Date End Date Rosa M Del Toro MD [address] [facility] [place] [address] PCP - General Family Medicine 10/25/22 Rosa M Del Toro MD [address] [facility] [place] [address] PCP - ACO Reach 08/16/23 05/23/24 Rosa M Del Toro MD [address] [facility] [place] [address] PCP - ACO Reach 05/31/24 07/18/24 Rosa M Platt, RN [address] [facility] [address] Registered Nurse Family Medicine 03/01/23 documented as of this encounter
--- OUTSIDE RECORDS SUMMARY | 2024-10-15 09:41 | XMS_ITS | Clinical Summary ---
Author Organization [facility] Address [address] [place] [address] Care Team Providers Care Corporate Recycling Manager Name Role Phone Rosa M Del Toro MD Primary Care Provider [phone] Bobby Agee MD Unavailable Petey Redding CNP Unavailable [phone] Guido Campos MD Unavailable [phone] Allergies No known active allergies Medications aspirin [...] type, unspecified whether angina present, unspecified whether round valley or transplanted heart Take 0.5 tablets (100 mg) by mouth once daily as directed. Do not crush or chew. 90 tablet 3 12/19/19 24 Active Additional Information Patient not taking.Reported on 09/18/2024 nitroglycerin (Nitrostat) 0.4 mg SL tabletIndicatio ns:Coronary artery disease involving round valley coronary artery of round valley heart without angina pectoris Place 1 tablet [...] type, unspecified whether angina present, unspecified whether round [place] or transplanted heart Take 1 tablet (500 mg) by mouth two times daily. Do not crush, chew, or split. 180 tablet 08/29/19 026 Active atorvastatin (Lipitor) 80 mg tabletIndicatio ns:Coronary artery disease, unspecified vessel or lesion type, unspecified whether angina present, unspecified whether round valley or transplanted heart Take 1 tablet (80 [...] type, unspecified whether angina present, unspecified whether round valley or transplanted heart Take 1 tablet (75 [...] 11/08/2022 12/05/2022 Coronary artery disease invo lving round valley coronary artery of round valley heart with unstable angina pectoris 11/08/2022 12/05/2022 [...] Type Department Care Team Description 10/06/2024 Refill [facility] Heart at [place] [address] [place] [address] Federico Chester MD Essential hypertension (Primary Dx); Aftercare following organ transplant 09/18/2024 9:45 AM EDT Office Visit [facility] [address] [place] [facility] [place] [address] Federico Chester MD Congestive heart failure, unspecified HF chronicity, unspecified heart failure type (CMS/HCC) (Primary Dx); Coronary artery disease, unspecified vessel or lesion type, unspecified whether angina present, unspecified whether round valley or transplanted heart; Gastroesophageal reflux disease without esophagitis; Dizziness; Palpitations; Ischemic cardiomyopathy 09/18/2024 Telephone [facility] [address] [place] [address] Vi Ballard MA 09/10/[address] [place] [address] Federico Chester MD Coronary artery disease, unspecified vessel or lesion type, unspecified whether angina present, unspecified whether round valley or transplanted heart 08/28/2024 Refill [facility] [address] [place] [address] Malissa To MA Palpitations; Coronary artery disease, unspecified vessel or lesion type, unspecified whether angina present, unspecified whether round valley or transplanted heart; Chest pain, unspecified type; Gastroesophageal reflux disease without esophagitis 08/26/2024 Refill [facility] [address] [place] [address] Federico Chester MD Coronary artery disease, unspecified vessel or lesion type, unspecified whether angina present, unspecified whether round valley or transplanted heart; Chest pain, unspecified type; [...] Description 10/17/2024 10:00 AM EDT Office Visit [place] [address] [place] [address] Federico Chester MD [address] [facility] [place] [address] 10/17/2024 2:30 PM EDT Follow-Up [facility] Transplant [address] [place] [address] Sean Aden, BRAN MIXER [address] [place] [address] 10/22/2024 9:30 AM EDT Ancillary Procedure [facility] [address] [place] [address] Health Maintenance Due Date Last [...] 2) 12/27/1979 Adult Tetanus 1982 COVID-19 Vaccine (7 - season) 2023 03/30/2023, 12/30/2021, 12/30/2021, Additional history exists Diabetes: Hemoglobin A1C 06/05/2024 024, 05/18/2023, 02/09/2023, Additional history exists Influenza Vaccine (#1) 2024 , 01/13/2023, 01/13/2022, Additional history exists Depression Screening 04/11/2025 04/11/2024 Colonoscopy 01/10/2034 01/11/2024, 02/01/2013 Colorectal Cancer Screening 01/10/2034 HIB Vaccines Aged Out No longer eligi [...] this topic Meningococcal Vaccine Aged Out No baldomero star eligible based on patient's age to complete this topic Rotavirus Vaccines Aged Out No longer eligible based on patient's age to complete this topic Medical Devices Implanted Type Area Window Glass Installer Device Identifier Shelf Expiration Date Model / [...] - 6.0 % 05/18/2023 1:20 PM EST [facility] Estimated Average Glucose 137 mg/dL 05/18/2023 1:20 PM EST [facility] Blood Venous blood specimen / Unknown Venipuncture / Unknown 05/18/2023 9:16 AM EST 05/18/2023 9:16 AM EST us Bobby Agee MD LAB BLOOD ORDERABLES Final Resul t [facility] [address] [place] [address] from Last 3 Months or Most Recently Relevant to Health Maintenance Insurance [employer] MEDICARE ADVANTAGE [employer] MEDICARE ADVANTAGE Advance Directives * Full Code (Latest Code Status on File) Date Activated Date Inactivated Comments 01/25/2023 3:23 AM 01/25/2023 9:56 PM Care Teams Corporate Recycling Manager Relationship Specialty Start Date End Date Rosa M Del Toro MD PCP - General 01/25/22 Bobby Agee MD [address] [place] [address] [place] [address] Consulting Physician Urology 01/25/22 Petey Redding CNP [address] [place] [address] [place] [address] Nurse Practitioner Urology 09/27/22 Guido Campos MD [address] [place] [address] [place] [address] Consulting Physician Transplant Surgery 12/22/22
--- OUTSIDE RECORDS SUMMARY | 2024-10-15 09:42 | XMS_ITS | Encounter Summary ---
Author Organization [facility] Address [address] [place] [address] Care Team Providers Care Community Administrator Name Role Phone Rosa M Gonzales MD Primary Care Provider [phone] Rosa M Platt RN Unavailable [phone] Rosa M Gonzales MD Unavailable [phone] Rosa M Gonzales MD Unavailable [phone] Encounter Details Date Type Department Care Team [...] often do you attend chur ch or rastafarian services? 1 to 4 times per year 11/01/2022 Do you belong to any clubs o r organizations such as anabaptist groups, unions, fraternal or athletic groups, or [...] Recorded Patient Health Questionnaire-2 Score 0 11/23/2023 [facility] - Occupational Stress Questionnaire Answer [...] GALLARDO [address] [place] [address] Kimberlyn Fishman MD [address] [place] [address] documented as of this encounter Procedures Procedure Name Priority Date/Time Associated Diagnosis Comments CA ECHO DOPPLER COMPLETE 12/07/2023 11:34 AM EDT documented in this encounter Results * CA ECHO DOPPLER COMPLETE (12/07/2023 11:34 AM EDT) Anatomical Region Laterality Modality Other 12/07/2023 11:3 4 AM EDT Narrative 12/07/2023 11:35 AM EDT [facility] [place] [id number] Cardiology Report Signed Patient: VISHAL DUKE MR#: [id number] : 1960 Acct:[id number] Age/Sex: 62 / M ADM Date: 12/07/23 Loc: CARD Attending Dr: Federico Brown M.D. Ordering Physician: Federioc Brown M.D. Date of Service: 12/07/23 Procedure(s): CA echo doppler complete Accession Number(s): [id number] cc: Federico Brown M.D.; ROSA M GONZALES Patient Name: VISHAL DUKE MR#: [id number] : 1960 Exam Date: 12/07/2023 Ordering Doctor: [...] Signed By: 12/07/23 1135 DD/ 1134 TD/TT: Credentialer: Procedure Note Radiology, Radiologist, - 12/07/2023 [place] [address] Cardiology Report Signed Patient: VISHAL DUKE DMR#: [id number] : 1960cct:[id number] Age/Sex: 62 / MADM Date: 12/07/23 Loc: CARD Attending Dr: Federico Brown M.D. Ordering Physician: Federico Brown M.D. Date of Service: 12/07/23 Procedure(s): CA echo doppler complete Accession Number(s): [id number] cc: Federico Brown M.D.; ROSA M GONZALES Patient Name: VISHAL DUKE MR#: [id number] : 1960 Exam Date: 12/07/2023 Ordering Doctor: [...] M.D. Signed By:12/07/23 1135 DD/ 1134 TD/TT: Credentialer: us Generic External Data Provider [facility] Final Result documented in this encounter Visit Diagnoses Not on filedocumented in this encounter Additional Health Concerns Assessment Noted Time PHQ-9 Depression Total Score: 0 11/09/19 9:00 AM EDT documented as of this encounter Care Teams Community Administrator Relationship Specialty Start Date End Date Rosa M Gonzales MD [address] [place] [address] PCP - General Family Medicine 10/25/22 Rosa M Gonzales MD [address] [facility] [place] [address] PCP - ACO Reach 08/16/23 05/23/24 Rosa M Gonzales MD [address] [facility] [place] [address] PCP - ACO Reach 05/31/24 07/18/24 Rosa M Platt RN [address] [facility] [place] [address] Registered Nurse Family Medicine 03/01/23 documented as of this encounter
--- OUTSIDE RECORDS SUMMARY | 2024-10-15 09:42 | XMS_ITS | Encounter Summary ---
Author Organization [facility] Address [address] [facility] [place] [address] Care Team Providers Care Supervisor Shearing Name Role Phone Rosa M Del Toro MD Unavailable Rosa M Del Toro MD Primary Care Provider [phone] Rosa M Platt RN Unavailable [phone] Rosa M Del Toro MD Unavailable Rosa M Del Toro MD Unavailable [phone] Encounter Details Date Type Department Care Team (Late st Contact Info) Description 10/25/2022 Abstract [facility] D[facility]M [address] [facility] [address] [place] [address] Kimberlyn Fishman MD [address] [facility] [address] [place] [address] Social History Tobacco Use Types Packs/Day Years [...] [address] [place] [address] Kimberlyn Fishman MD [address] [place] [address] documented as of this encounter Visit Diagnoses Not on filedocumented in this encounter Care Teams Supervisor Shearing Relationship Specialty Start Date End Date Rosa M Del Toro MD [address] [place] [address] PCP - ACO Reach 09/08/22 06/15/23 Rosa M Del Toro MD [address] [place] [address] PCP - General Family Medicine 10/25/22 Rosa M Del Toro MD [address] [place] [address] PCP - ACO Reach 08/16/23 05/23/24 Rosa M Del Toro MD [address] [place] [address] PCP - ACO Reach 05/31/24 07/18/24 Rosa M Platt RN [address] [place] [address] Registered Nurse Family Medicine 03/01/23 documented as of this encounter
--- OUTSIDE RECORDS SUMMARY | 2024-10-15 09:42 | XMS_ITS | Encounter Summary ---
Author Organization [facility] Address [address] [facility] [place] [address] Care Team Providers Care Pharmacy Cashier Name Role Phone Rosa M Del Toro MD Unavailable Rosa M Del Toro MD Primary Care Provider [phone] Rosa M Platt RN Unavailable [phone] Rosa M Del Toro MD Unavailable [phone] Rosa M Del Toro MD Unavailable [phone] Encounter Details Date Type Department Care Team (Late st Contact Info) Description 01/31/2023 Abstract [facility] [address] [place] [address] Rosa M Del Toro MD [address] [place], [place] [id number] Social History Tobacco Use Types Packs/Day Years [...] often do you attend chur ch or rastafari services? 1 to 4 times per year [...] Recorded Patient Health Questionnaire-2 Score 0 11/08/2022 [facility] - Occupational Stress Questionnaire Answer Date [...] GALLARDO [address] [place] [address] Kimberlyn Fishman MD [address] [place] [address] documented as of this encounter Visit Diagnoses Not on filedocumented in this encounter Additional Health Concerns Assessment Noted Time PHQ-9 Depression Total Score: 0 11/09/19 9:00 AM EDT documented as of this encounter Care Teams Pharmacy Cashier Relationship Specialty Start Date End Date Rosa M Del Toro MD [address] [place] [address] PCP - ACO Reach 09/08/22 06/15/23 Rosa M Del Toro MD [address] [place], [place] [id number] PCP - General Family Medicine 10/25/22 Rosa M Del Toro MD [address] [facility] [place] [address] PCP - ACO Reach 08/16/23 05/23/24 Rosa M Del Toro MD [address] [facility] [place], [place] [address] PCP - ACO Reach 05/31/24 07/18/24 Rosa M Platt RN [address] [facility] [place] [address] Registered Nurse Family Medicine 03/01/23 documented as of this encounter
--- OUTSIDE RECORDS SUMMARY | 2024-10-15 09:42 | XMS_ITS | Encounter Summary ---
Author Organization [facility] Address [address] [facility] [place] [address] Care Team Providers Care Pca Name Role Phone Rosa M Del Toro MD Primary Care Provider [phone] Rosa M Platt RN Unavailable [phone] Encounter Details Date Type Department Care Team (Late st Contact Info) Description 10/03/2024 Telephone [facility] [address] [place] [address] Rosa M Del Toro MD [address] [place] [address] Social History Tobacco Use Types [...] often do you attend chur ch or scientology services? 1 to 4 times per year [...] Recorded Patient Health Questionnaire-2 Score 0 10/03/2024 [facility] Questionnaire Answer Date [...] 10/03/2024 3:56 PM EDT [facility] [place] [facility] for test strips and lancets. How many do you want them to dispense and how many refills? They will take a verbal [phone]. Thank you. documented in this encounter Plan of Treatment Upcoming Encounters Date Type Department Care Team (Late st Contact Info) Description 11/04/2024 9:45 AM EDT Office Visit [facility] GALLARDO [address] [place] [address] Kimberlyn Fishman MD [address] [place] [address] documented as of this encounter Visit Diagnoses Not on filedocumented in this encounter Additional Health Concerns Assessment Noted Time PHQ-9 Depression Total Score: 0 10/04/19 11:32 AM EDT documented as of this encounter Care Teams Pca Relationship Specialty Start Date End Date Rosa M Del Toro MD [address] [place] [address] PCP - General Family Medicine 10/25/22 Rosa M Platt, RN [address] [place] [address] Registered Nurse Family Medicine 03/01/23 documented as of this encounter
--- OUTSIDE RECORDS SUMMARY | 2024-10-15 09:42 | XMS_ITS | Encounter Summary ---
Author Organization [facility] Address [address] [facility] [place] [address] Care Team Providers Care Supervisor Case Loading Name Role Phone Rosa M Del Toro MD Primary Care Provider [phone] Rosa M Platt RN Unavailable [phone] Rosa M Del Toro MD Unavailable [phone] Rosa M Del Toro MD Unavailable [phone] Reason for Visit * Reason Comments Med Refill Encounter Details Date Type Department Care Team (Late st Contact Info) Description 10/17/2023 Refill [facility] [address] [place] [address] Rosa M Del Toro MD [address] [place], [place] [address] History of kidney transplant (HCC) Social History [...] often do you attend chur ch or faith services? 1 to 4 times per year 11/01/2022 Do you belong to any clubs o r organizations such as mosque groups, unions, fraternal or athletic groups, or [...] Recorded Patient Health Questionnaire-2 Score 0 07/27/2023 [facility] - Occupational Stress Questionnaire Answer Date [...] GALLARDO [address] [place] [address] Kimberlyn Fishman MD [address] [place] [address] documented as of this encounter Visit Diagnoses Diagnosis History of kidney transplant (HCC) Kidney replaced by transplant documented in this encounter Additional Health Concerns Assessment Noted Time PHQ-9 Depression Total Score: 0 11/09/19 23 9:00 AM EDT documented as of this encounter Care Teams Supervisor Case Loading Relationship Specialty Start Date End Date Rosa M Del Toro MD [address] [place] [address] PCP - General Family Medicine 10/25/22 Rosa M Del Toro MD [address] [place] [address] PCP - ACO Reach 08/16/23 05/23/24 Rosa M Del Toro MD [address] [place] [address] PCP - ACO Reach 05/31/24 07/18/24 Rosa M Platt, TATO [address] [place] [address] Registered Nurse Family Medicine 03/01/23 documented as of this encounter
--- OUTSIDE RECORDS SUMMARY | 2024-10-15 09:42 | XMS_ITS | Encounter Summary ---
Author Organization [facility] Address [address] [facility] [place] [address] Care Team Providers Care Laborer Mine Name Role Phone Rosa M Del Toro MD Unavailable Rosa M Del Toro MD Primary Care Provider Rosa M Platt RN Unavailable [phone] Rosa M Del Toro MD Unavailable Rosa M Del Toro MD Unavailable [phone] Reason for Visit * Reason Comments Med Refill Encounter Details Date Type Department Care Team (Late st Contact Info) Description 11/21/2022 Refill [facility] FM [address] [place] [address] Rosa M Del Toro MD [address] [place], [place] [id number] History of kidney transplant (HCC) Social History [...] How often do you attend chur or nondenominational services? 1 to 4 times per year [...] Recorded Patient Health Questionnaire-2 Score 0 11/08/2022 [facility] of Occupat ional Health - [...] DERM [address] [place] [address] Kimberlyn Fishman MD [address] [place] [address] documented as of this encounter Visit Diagnoses Diagnosis History of kidney transplant (HCC) Kidney replaced by transplant documented in this encounter Additional Health Concerns Assessment Noted Time PHQ-9 Depression Total Score: 0 11/09/19 9:00 AM EDT documented as of this encounter Care Teams Laborer Mine Relationship Specialty Start Date End Date Rosa M Del Toro MD [address] [facility] [place] [address] PCP - ACO Reach 09/08/22 06/15/23 Rosa M Del Toro MD [address] [facility] [place] [address] PCP - General Family Medicine 10/25/22 Rosa M Del Toro MD [address] [facility] [place] [address] PCP - ACO Reach 08/16/23 05/23/24 Rosa M Del Toro MD [address] [facility] [place] [address] PCP - ACO Reach 05/31/24 07/18/24 Rosa M Platt, TATO [address] [place] [address] Registered Nurse Family Medicine 03/01/23 documented as of this encounter
--- OUTSIDE RECORDS SUMMARY | 2024-10-15 09:42 | XMS_ITS ---
Author Organization [facility] Address [address] [facility] [place] [address] Care Team Providers Care School Coordinator Name Role Phone Rosa M Del Toro MD Primary Care Provider [phone] Rosa M Brownlee RN Unavailable [phone] Chronic Care Management (CCM) Status:Enrolled (Active) Start date:03/01/2023 Enrollment date:03/01/2023 Enrollment reason:Referred by provider Overview Addresses patients in need of care management services. 03/01/23, 10:08 AM - Rosa M Brownlee RN- Patient gives verbal consent to be enrolled in CCM Program and understands there could be a bill for this service. Case Team Name Relationship Phone Rosa M Brownlee RN(Responsible Staff) Registered Nurse [phone] Continued Care and Services Coordination
--- OUTSIDE RECORDS SUMMARY | 2024-10-15 09:42 | XMS_ITS | Encounter Summary ---
Author Organization [facility] Address [address] [facility] [place] [address] Care Team Providers Care Machine I Trimmer Name Role Phone Rosa M Del Toro MD Primary Care Provider [phone] Rosa M Platt RN Unavailable [phone] Rosa M Del Toro MD Unavailable [phone] Rosa M Del Toro MD Unavailable Reason for Visit * Reason Onset Date Comments Med Refill 06/27/2023 Encounter Details Date Type Department Care Team (Late st Contact Info) Description 06/27/2023 Refill [facility] FM [address] [place] [address] Rosa M Del Toro MD [address] [place], [place] [phone] Simple chronic bronchitis (HCC) (Primary Dx) Social [...] How often do you attend chur or synagogue services? 1 to 4 times per year 11/01/2022 Do you belong to any clubs o r organizations such as congregational groups, unions, fraternal or athletic groups, or [...] Recorded Patient Health Questionnaire-2 Score 0 02/17/2023 [facility] of Occupat ional Health - Occupational Stress [...] GALLARDO [address] [place] [address] Kimberlyn Fishman MD [address] [place] [address] documented as of this encounter Visit Diagnoses Diagnosis Simple chronic bronchitis (HCC)- Primary Simple chronic bronchitis documented in this encounter Additional Health Concerns Assessment Noted Time PHQ-9 Depression Total Score: 0 11/09/19 9:00 AM EDT documented as of this encounter Care Teams Machine I Trimmer Relationship Specialty Start Date End Date Rosa M Del Toro MD [address] [place] [address] PCP - General Family Medicine 10/25/22 Rosa M Del Toro MD [address] [facility] [place] [address] PCP - ACO Reach 08/16/23 05/23/24 Rosa M Del Toro MD [address] [place] [address] PCP - ACO Reach 05/31/24 07/18/24 Rosa M Platt RN [address] [place] [address] Registered Nurse Family Medicine 03/01/23 documented as of this encounter
--- OUTSIDE RECORDS SUMMARY | 2024-10-15 09:42 | XMS_ITS | Encounter Summary ---
Author Organization [facility] Address [address] [facility] [place] [address] Care Team Providers Care Home Demonstration Agent Name Role Phone Rosa M Del Toro MD Primary Care Provider [phone] Rosa M Platt RN Unavailable [phone] Encounter Details Date Type Department Care Team (Late st Contact Info) Description 10/03/2024 Bamboo flowsheet [facility] [address] [place] [address] Rosa M Del Toro MD [address] [place] [address] Social History Tobacco Use Types [...] any clubs o r organizations such as uatsdin groups, unions, fraternal or athletic groups, or [...] Patient Health Questionnaire-2 Score 0 10/03/2024 [facility] of Occupat [facility] Health - Occupational Stress Questionnaire Answer Date [...] DERM [address] [place] [address] Kimberlyn Fishman MD [address] [place] [address] documented as of this encounter Visit Diagnoses Not on filedocumented in this encounter Additional Health Concerns Assessment Noted Time PHQ-9 Depression Total Score: 0 10/04/19 25 11:32 AM EDT documented as of this encounter Care Teams Home Demonstration Agent Relationship Specialty Start Date End Date Rosa M Del Toro MD [address] [place] [address] PCP - General Family Medicine 10/25/22 Rosa M Platt RN [address] [place] [address] Registered Nurse Family Medicine 03/01/23 documented as of this encounter
--- OUTSIDE RECORDS SUMMARY | 2024-10-15 09:42 | XMS_ITS | Encounter Summary ---
Author Organization [facility] Address [address] [facility] [place] [address] Care Team Providers Care Green Marketer Name Role Phone Rosa M Del Toro MD Primary Care Provider [phone] Rosa M Platt RN Unavailable [phone] Encounter Details Date Type Department Care [...] often do you attend chur ch or yazidi services? 1 to 4 times per year 11/01/2022 Do you belong to any clubs o r organizations such as confucianism groups, unions, fraternal or athletic groups, or [...] GALLARDO [address] [place] [address] Kimberlyn Fishman MD [address] [place] [address] documented as of this encounter Visit Diagnoses Not on filedocumented in this encounter Additional Health Concerns Assessment Noted Time PHQ-9 Depression Total Score: 0 10/04/19 25 11:32 AM EDT documented as of this encounter Care Teams Green Marketer Relationship Specialty Start Date End Date Rosa M Del Toro MD [address] [place] [address] PCP - General Family Medicine 10/25/22 Rosa M Platt, RN [address] [place] [address] Registered Nurse Family Medicine 03/01/23 documented as of this encounter
--- OUTSIDE RECORDS SUMMARY | 2024-10-15 09:42 | XMS_ITS | Encounter Summary ---
Author Organization [facility] Healthcare Address [address] [place] [address] Care Team Providers Care Mapping Pilot Name Role Phone Rosa M Del Toro MD Primary Care Provider [phone] Rosa M Brownlee RN Unavailable Encounter Details Date Type Department Care Team (Late st Contact Info) Description 10/02/2024 Patient Outreach [facility] POPULATION [facility] [address] [place] [address] Rosa M Brownlee, RN [address] [place] [address] Social History Tobacco Use Types Packs/Day Years [...] often do you attend chur ch or mormon services? 1 to 4 times per year [...] Recorded Patient Health Questionnaire-2 Score 0 10/03/2024 [facility] Questionnaire Answer Date [...] morning. He and just got back from [place] last night - they were there for [...] Office Visit [facility] G[facility]O [address] [facility] [address] [place] [address] Kimberlyn Fishman MD [address] [facility] [address] [place] [address] documented as of this encounter Visit Diagnoses Diagnosis Essential hypertension- Primary Unspecified essential hypertension Polycystic kidney disease, autosomal dominant Congenital polycystic kidney, autosomal dominant documented in this encounter Additional Health Concerns Assessment Noted Time PHQ-9 Depression Total Score: 0 11/09/19 9:00 AM EDT documented as of this encounter Care Teams Mapping Pilot Relationship Specialty Start Date End Date Rosa M Del Toro MD [address] [place], [place] [address] PCP - General Family Medicine 10/25/22 Rosa M Brownlee RN [address] [place] [address] Registered Nurse Family Medicine 03/01/23 documented as of this encounter
--- OUTSIDE RECORDS SUMMARY | 2024-10-15 09:42 | XMS_ITS | Clinical Summary ---
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 Coronary artery disease invo lving [place] coronary artery of [place] heart with unstable angina pectoris 11/08/2022 Overview [...] blood cells 11/08/2022 Status post insertion of hermial g-eluting stent into left anterior descending (LAD) [...] Encounters Date Type Department Care Team Description 10/14/2024 Clinisync Result Encounter [facility] External Department Unsolicited Provider, Generic External Data 10/03/2024 11:30 AM EDT Office Visit [facility] [address] [place] [phone] Rosa M Del Toro MD Wellness examination (Primary Dx); Simple chronic bronchitis (HCC); Post-COVID chronic dyspnea; Chronic systolic congestive heart failure (HCC); Essential hypertension ; End-stage renal disease ([facility]); PKD (polycystic kidney disease); Stage 3a chronic kidney disease ([facility]); History of kidney transplant (HCC); Dizziness; Type 2 diabetes mellitus with diabetic cataract (HCC); Type 2 diabetes mellitus with diabetic polyneuropathy ([facility]); Cardiomyopathy, unspecified (HCC) 10/03/2024 Telephone [facility] [address] [place] [phone] Rosa M Del Toro MD 10/03/2024 Bamboo flowsheet [facility] [address] [place] [phone] Rosa M Del Toro MD 10/03/2024 Travel 10/02/2024 Patient Outreach [facility] [place] [address] [place] [address] Rosa M Platt RN 09/10/2024 Refill [facility] [address] [place] [phone] Rosa M Del Toro MD History of [...] often do you attend chur ch or shinto services? 1 to 4 times per year [...] Recorded Patient Health Questionnaire-2 Score 0 10/03/2024 [facility] - Occupational [...] 9:45 AM EDT Office Visit [facility] [address] [place] [address] Kimberlyn Fishman MD [address] [place] [address] Health Maintenance Due Date Last [...] Procedure Name Priority Date/Time Associated Diagnosis Comments ALL CBC WITH AUTO DIFF Routine 8:35 AM EDT METRO BILIRUBIN, DIRECT Routine 10/14/2024 8:35 AM EDT ALL MAGNESIUM Routine 10/14/2024 8:35 AM EDT ALL PHOSPHOROUS Routine 10/14/2024 8:35 AM EDT ALL URIC ACID Routine 10/14/2024 8:35 AM EDT [facility] CMP (CMP) (FOR REMOTE [facility] USE) Routine 10/14/2024 8:35 AM EDT [facility] TESTOSTERONE FREE/TOT EQUILIB Routine 09/10/2024 8:49 [...] AM EDT [facility] CMP (CMP) (FOR REMOTE [facility] USE) Routine 09/10/2024 8:49 AM EDT ALL CBC WITH AUTO DIFF Routine 8:49 AM EDT HEMOGLOBIN A1C Routine 09/10/2024 ALL MISCELLANEOUS TEST Routine 9:17 AM EDT METRO BILIRUBIN, DIRECT Routine 08/09/2024 9:17 AM EDT ALL MAGNESIUM Routine 08/09/2024 9:17 AM EDT ALL PHOSPHOROUS Routine 08/09/2024 9:17 AM EDT ALL URIC ACID Routine 08/09/2024 9:17 AM EDT [facility] CMP (CMP) (FOR REMOTE [facility] USE) Routine 08/09/2024 9:17 AM EDT ALL CBC WITH AUTO DIFF Routine 9:17 AM EDT HEMOGLOBIN A1C Routine 03/05/2024 Elevated fasting glucose HM COLONOSCOPY Routine 01/26/2024 3:11 PM EDT COLOR FUNDUS PHOTOGRAPHY - OU - BOTH EYES Routine 05/18/2021 12:00 PM EST from Last 3 Months or Most Recently Relevant to Health Maintenance Results * METRO BILIRUBIN, DIRECT (10/14/2024 8:35 AM EDT) Only the most recent of3 resultswithin the time period is included. BILIRUBIN DIRECT 0.1 0.0 - 0.2 mg/dL [facility] 10/14/2024 8:35 AM EDT 10/14/2024 8:36 AM EDT Narrative [facility] - 10/14/2024 9:02 AM EDT us Generic External Data Provider [facility]NC F inal Result [facility] * (ABNORMAL) [facility] CMP (CMP) (FOR REMOTE CRITICAL ACCESS [facility]OSPITAL USE) (10/14/2024 8:35 AM EDT) Only the most recent of3 resultswithin the time period is included. SODIUM 145 136 - 145 mmol/L [facility] POTASSIUM 4.4 3.5 - 5.1 mmol/L [facility] CHLORIDE 107 98 - 107 mmol/L [facility] CARBON DIOXIDE 26.3 21.0 - 32.0 mmol/L [facility] ANION GAP 16.1 [facility] GLUCOSE 133(H) 74 - 106 mg/dL [facility] BLOOD UREA NITROGEN 21.0(H) 7.0 - 18.0 mg/dL [facility] CREATININE 1.29 0.70 - 1.30 mg/dL [facility] EGFR-AF GHANAIAN >60 >=60 mL/min/1. 73m 2 [facility] EGFR-NON AF GHANAIAN 56(L) >=60 mL/min/1. 73m 2 [facility] BUN [...] CLINISYNC F inal Result Performing Organization Address [facility] de Phone Number [facility] * ALL URIC ACID (10/14/2024 8:35 AM EDT) Only the most recent of3 resultswithin the time period is included. URIC ACID 6.7 3.5 - 7.2 mg/dL TB 10/14/2024 8:35 AM EDT 10/14/2024 8:36 AM EDT Narrative [facility]YNC - 10/14/2024 9:02 AM EDT Generic External Data Provider CLINISYNC F inal Result Performing Organization Address [facility] de Phone Number [facility] * ALL PHOSPHOROUS (10/14/2024 8:35 AM EDT) Only the most recent of3 resultswithin the time period is included. PHOSPHORUS 3.4 2.6 - 4.7 mg/dL TB 10/14/2024 8:35 AM EDT 10/14/2024 8:36 AM EDT Narrative [facility]IN[facility]YNC - 10/14/2024 9:02 AM EDT Generic External Data Provider CLINISYNC F inal Result Performing Organization Address [facility] de Phone Number [facility] * (ABNORMAL) ALL MAGNESIUM (10/14/2024 8:35 AM EDT) Only the most recent of3 resultswithin the time period is included. MAGNESIUM 1.7(L) 1.8 - 2.4 mg/dL [facility] 10/14/2024 8:35 AM EDT 10/14/2024 8:36 AM EDT Narrative CLINISYNC - 10/14/2024 9:02 AM EDT us Generic External Data Provider CLINISYNC F inal Result [facility] * (ABNORMAL) ALL CBC WITH AUTO DIFF (10/14/2024 8:35 AM EDT) Only the most recent of3 resultswithin the time period is included. [facility] WBC 7.1 4.0 - 11.0 10 3/uL [...] Narrative CLINISYNC - 10/14/2024 10:18 AM EDT Generic External Data Provider CLINISYNC F inal Result Performing Organization Address [facility] Co de Phone Number [facility] * BKV QUANT PCR (09/10/2024 8:49 AM EDT) Pathologist [facility] BKV DNA, QUANT PCR, PLASMA Negative Negative IU/mL [facility] Comment: No BK DNA detected. The linear range of the assay is 22 - 100,000,000 IU/mL. Performed at: [address] [id number] Spool Fixer: Evan Orozco MD, Phone: [phone] LOG10 BKV DNA,PLASMA TNP . TB 09/10/2024 8:49 AM EDT 09/10/2024 8:51 AM EDT Narrative CLINISYWA - 09/11/2024 11:08 AM EDT [facility] External Data Provider LAB BLOOD ORDERAB LES Final Result Performing Organization Address [facility] de Phone Number [facility] * TACROLIMUS ([id number]), BLOOD (09/10/2024 8:49 AM EDT) [facility] [address] TACROLIMUS ([id number]), BLOOD 8.1 5.0 - 20.0 ng/mL [facility] Comment: This test was developed and its performance characteristics determined by [facility]. It has not been cleared or approved [...] ng/mL Performed by LC-MS/MS technology. Performed at: [address] [id number] Spool Fixer: Evan Orozco MD, Phone: [phone] 09/10/2024 8:49 AM EDT 09/10/2024 8:51 AM EDT Narrative CLINISYNC - 09/13/2024 10:07 PM EDT us Generic External Data Provider LAB BLOOD ORDERAB LES Final Result Performing Organization Address [facility]/ZIP Co de Phone Number [facility] * [facility] TESTOSTERONE FREE/TOT EQUILIB (09/10/2024 8:49 AM EDT) TESTOSTERONE 399 264 - 916 ng/dL TB Comment: Adult male reference interval is based on a population of healthy nonobese males (BMI <30) between 19 and 39 years old. Mike et.al. JCEM 2017,102;2526-3313. PMID: [id number]. FREE TESTOSTERONE(DIRE CT) 8.9 6.6 - 18.1 pg/mL [facility] Comment: Performed at: [address] [id number] Spool Fixer: Dayne Mckenzie PhD, Phone: [phone] Performed at: [address] [id number] Spool Fixer: Evan Orozco MD, Phone: [phone] 09/10/2024 8:49 AM EDT 09/10/2024 8:51 AM EDT Narrative CLINISYNC - 09/13/2024 10:07 PM EDT Generic External Data Provider CLINISYNC F inal Result Performing Organization Address City/[facility]/ZIP Co de Phone Number [facility] * (ABNORMAL) MLR HEMOGLOBIN A1C (09/10/2024 8:49 [...] CLINISYNC F inal Result Performing Organization Address City/[facility]/ZIP Co de Phone Number [facility] * METRO SEX BINDING HORMONE (SHBG), TESTOSTERONE, FREE AND BIOAVAILABLE (09/10/2024 8:49 AM EDT) [facility] [address] SEX HORM BINDING GLOB, SERUM 31.2 19.3 - 76.4 nmol/L TB Comment: Performed at: [address] [id number] Spool Fixer: Dayne Mckenzie PhD, Phone: [phone] 09/10/2024 8:49 AM EDT 09/10/2024 8:51 AM EDT Narrative CLINISYNC - 09/13/2024 10:07 PM EDT Generic External Data Provider CLINISYNC F inal Result Performing Organization Address [facility] Co de Phone Number [facility] * ALL LIPID PROFILE (FASTING) (09/10/2024 8:49 AM EDT) [facility] [address] [facility] TRIGLYCERIDES 149 <=150 mg/dL [facility] CHOLESTEROL 110 [...] 29.8 mg/dL TB CHOL HDL RATIO 2.5 [facility] Comment: 3.3 - 4.4 LOW RISK 4.4 - 7.1 AVERAGE RISK 7.1 - 11.0 MODERATE RISK >11.0 HIGH RISK 09/10/2024 8:49 AM EDT 09/10/2024 8:51 AM EDT Narrative CLINISYNC - 09/10/2024 9:18 AM EDT Generic External Data Provider CLINISYNC F inal Result [facility]NC [facility] * (ABNORMAL) HEMOGLOBIN A1C (09/10/2024) Blood 09/10/2024 Rosa M Del Toro MD LAB BLOOD ORDERABLES Final Re sult * ALL MISCELLANEOUS TEST (08/09/2024 9:17 AM EDT) Pathologist [facility] MISCELLANEOUS TEST COMMENT . [facility] Comment: Test Ordered: [id number] Tacrolimus Rebaseline, [place] Tacrolimus by Immunoassay 6.0 ng/mL CB Reference Range: 5.0-20.0 Detection Limit = 0.8 [...] Malini Immunoassay. Please note reference interval change [employer] will offer rebaseline testing (Test No. [id number]) through August 14, 2024. The rebaseline test will include results from both the current method ([employer]) and the new method (Malini). All test results indicate the dry clipper tender of the test on the laboratory report. The rebaseline test for tacrolimus immunoassay is charged at the amezquita for the new test; the test for the retiring method is performed at no additional charge. Tacrolimus IA by Thermo 8.1 ng/mL CB Reference Range: . Performed at: [address] [place] [id number] Spool Fixer: Dayne Mckenzie PhD, Phone: [phone] 08/09/2024 9:17 AM EDT 08/09/2024 9:30 AM EDT Narrative CLINISYNC - 08/11/2024 3:08 PM EDT [id number] [facility] JOSÉ Rashid us Generic External Data Provider CLINISYNC F inal Result Performing Organization Address City/[facility]/ZIP Co de Phone Number [facility] * Hemoglobin A1c (03/05/2024) HEMOGLOBIN A1C 6.4 [facility] Blood Venous blood specimen / Unknown 03/05/2024 us Rosa M Del Toro MD LAB BLOOD ORDERABLES Final Re sult Performing Organization Address [facility] Co de Phone Number [facility] * Hm Colonoscopy (01/26/2024 3:11 PM EDT) Anatomical Region Laterality Modality Other us Noms Provider Unallocated HEALTH MAINTENANCE Final Result * Color Fundus Photography - OU - Both Eyes (05/18/2021 12:00 PM EST) Anatomical Region Laterality Modality Head Fundus Photograp hy 05/18/2021 12:0 0 PM EST Narrative 05/18/2021 12:00 PM EST PERFORMED AT [facility] LOCATION:[id number] [facility] Procedure Note CONVERSION, GENERIC - 08/31/2022 PERFORMED AT [facility] LOCATION:[id number] [facility] us Rosa M Del Toro MD OPHTH PHOTOGRAPHY Final Resul t from Last 3 Months or Most Recently Relevant to Health Maintenance Insurance [facility] MEDICARE ADVANTAGE [employer] Care Teams Avionics System Engineer Relationship Specialty Start Date End Date Rosa M Del Toro MD [address] [place] [address] PCP - General Family Medicine 10/25/22 Rosa M Platt RN [address] [place] [address] Registered Nurse Family Medicine 03/01/23
--- OUTSIDE RECORDS SUMMARY | 2024-10-15 09:42 | XMS_ITS | Encounter Summary ---
Author Organization [facility] Address [address] [facility] [place] [address] Care Team Providers Care Recooperer Name Role Phone Rosa M Del Toro MD Primary Care Provider [phone] Rosa M Platt RN Unavailable [phone] Rosa M Del Toro MD Unavailable [phone] Rosa M Del Toro MD Unavailable [phone] Reason for Visit * Reason Onset Date Comments Med Refill 07/26/2023 Encounter Details Date Type Department Care Team (Late st Contact Info) Description 07/26/2023 Refill [facility] [address] [place] [address] Rosa M Del Toro MD [address] [place] [address] History of kidney transplant (HCC) [...] How often do you attend chur or adventist services? 1 to 4 times per year 11/01/2022 Do you belong to any clubs o r organizations such as episcopal groups, unions, fraternal or athletic groups, or [...] Recorded Patient Health Questionnaire-2 Score 0 07/27/2023 [facility] [place] [facility] Occupat ional Health - Occupational Stress [...] [address] [place] [phone] Kimberlyn Fishman MD [address] [place] [address] documented as of this encounter Visit Diagnoses Diagnosis History of kidney transplant (HCC) Kidney replaced by transplant documented in this encounter Additional Health Concerns Assessment Noted Time PHQ-9 Depression Total Score: 0 11/09/19 9:00 AM EDT documented as of this encounter Care Teams Recooperer Relationship Specialty Start Date End Date Rosa M Del Toro MD [address] [place] [address] PCP - General Family Medicine 10/25/22 Rosa M Del Toro MD [address] [place] [address] PCP - ACO Reach 08/16/23 05/23/24 Rosa M Del Toro MD [address] [place] [address] PCP - ACO Reach 05/31/24 07/18/24 Rosa M Platt RN [address] [place] [address] Registered Nurse Family Medicine 03/01/23 documented as of this encounter
--- NOTE | 2024-10-15 10:00 | CA_ITS ---
Patient Name: KACIE DUKE MR#: [id number] : 1960 Exam Date: 10/15/2024 Ordering Doctor: DR CALIN BROWN M.D. ECHOCARDIOGRAM REPORT PROCEDURE: CA ECHO DOPPLER COMPLETE INDICATIONS: Ischemic cardiomyopathy, CABG, pacemaker, h/o kidney transplant (polycystic disease) COMPARISON: None. DESCRIPTION: COMPLETE ECHOCARDIOGRAM Real-time transthoracic echocardiography with 2D, M-mode, spectral and color flow Doppler performed. QUALITY: Technical quality was good. LEFT VENTRICLE: Normal chamber size. Mild proximal septal hypertrophy (sigmoid septum). Moderately reduced left ventricular systolic function. Mid and apical septal segments and the apex are akinetic, inferior wall is hypokinetic. Ejection fraction estimated to be around 40% left ventricle apex could not be well-visualized and cannot rule out thrombus. LV EF: 40% DIASTOLIC: Grade 1 left ventricular diastolic dysfunction ATRIAL SEPTUM: Visually appears intact. LEFT ATRIUM: Normal chamber size. RIGHT ATRIUM: Normal chamber size. RIGHT VENTRICLE: Normal chamber size. Right ventricle systolic function appears preserved. Pacer wire present in the right atrium and right ventricle. TRICUSPID VALVE: Normal mobility and thickness. No stenosis with trivial regurgitation. No evidence of pulmonary hypertension.RVSP 32 mmHg MITRAL VALVE: Normal mobility and thickness. No evidence of mitral valve stenosis. There is no mitral annular calcification. Mild to moderate mitral regurgitation. AORTIC VALVE: Normal trileaflet appearance. No visible sclerosis. Normal leaflet mobility. No evidence of aortic valve stenosis. Mild aortic regurgitation. AORTIC ROOT: Normal diameter and appearance. PULMONIC VALVE: Normal thickness and mobility. No stenosis. Trivial regurgitation. PERICARDIUM: No evidence of pericardial effusion. IVC: Collapes with inspirations. IVC is normal in size. PLEURA: CONCLUSION: Moderately reduced left ventricular systolic function with wall motion abnormalities as described above. Ejection fraction estimated to be around 40%. Left ventricle apex could not be well-visualized, cannot exclude left ventricular apical clot, recommend to repeat 2D study with Lumason Normal right ventricle size and systolic function Normal right-sided pressures, RVSP 32 mmHg Mild to moderate mitral regurgitation Mild aortic insufficiency Adult Echocardiography Procedure Report Left Ventricle LVEDD (3.7 - 5.6 cm): 5.20 cm LVESD (2.2 - 4.0 cm): 3.84 cm LVIVS thickness (0.6 - 1.2 cm): 1.43 cm LVPW thickness (0.5 - 1.0 cm): 0.99 cm e': 0.08 m/s E - e': 4.75 LVOT Max Gradient: 3.66 mm[Hg] LVOT Area (cm2): 0.96 m/s Peak Velocity (LVOT): 0.96 m/s Mean Velocity (LVOT): 0.67 m/s LVOT Diameter 2.42 cm Left Ventricular Ejection Fraction: Left Atrium LA Volume Index (2D A2C): 32.86 ml/m2 Left Atrium Systolic Dimension: 5.17 cm Mitral Valve MV E to A Ratio: 0.76 MV Max Gradient: MV Mean Gradient: Mitral Valve A-Wave Peak Velocity: 0.48 m/s Mitral Valve E-Wave Peak Velocity: 0.36 m/s Cardiovascular Orifice Area: Right Ventricle RV Internal Diastolic Dimension: Aorta AO Root Diam: 3.82 cm Ascending Ao Diam: Aortic Valve AoV Area (Peak Francisco): 4.29 cm2, 4.29 cm2 AoV Area (VTI): 3.55 cm2, 3.55 cm2 Deceleration Gregory: 0.90 m/s2 Pressure Half-Time: 1.03 s Peak Velocity(Antegrade Flow): 1.03 m/s Peak Gradient(Antegrade Flow): 4.25 mm[Hg] Mean Velocity(Antegrade Flow): 0.71 m/s Mean Gradient(Antegrade Flow): 2.32 mm[Hg] Velocity Time Integral: 24.19 cm Tricuspid Valve Peak Velocity (Regurgitant Flow): 1.90 m/s, 2.67 m/s Peak Velocity: Pulmonic Valve Mean Gradient: Mean Velocity: Peak Velocity: Peak Gradient: 2.02 mm[Hg], 2.39 mm[Hg] Right Atrium Right Atrium Systolic Pressure: 44.43 ml, 44.43 ml Dictated by: Rozina Loza MD on 10/15/2024 at 14:18 Approved by: Rozina Loaz MD on 10/15/2024 at 14:32
== END 2024-10-15 09:40 | disposition home or self-care (01) ==
LOC: CARD 09:39
PROVIDERS: PCP Family Medicine; Visit Provider Internal Medicine Interventional Cardiology
DX: I50.9 Heart failure, unspecified (principal); I25.5 Ischemic cardiomyopathy
CPT/HCPCS: 93306; 93356

== ENCOUNTER 2024-11-15 08:37 | Outpatient (OUT) | payer MEDICARE, SELFPAY ==
--- OUTSIDE RECORDS SUMMARY | 2024-11-04 09:45 | XMS_ITS | Encounter Summary ---
Author Organization [facility] Address [address] [place] [address] Care Team Providers Care Hotel Guest Service Agent Name Role Phone Rosa M Del Toro MD Primary Care Provider [phone] Rosa M Platt RN Unavailable [phone] Reason for Visit * Reason Comments Skin Check Encounter Details Date Type Department Care Team (Late st Contact Info) Description 11/04/2024 9:45 AM EDT Office Visit [facility] [address] [facility] [address] [place] [phone] Kimberlyn Fishman MD [address] [facility] [address] [place] [address] Seborrheic keratosis (Primary Dx); Lentigines; History of basal cell carcinoma; Actinic keratosis; Neoplasm of unspecified behavior of bone, soft tissue, and skin; Seborrheic keratosis, inflamed Social History Tobacco Use Types Packs/Day Years [...] How often do you attend chur or christian services? 1 to 4 times per year [...] Recorded Patient Health Questionnaire-2 Score 0 10/03/2024 [facility] of Occupat ional Health - Occupational Stress [...] as of this encounter Progress Notes * Kimberlyn Fishman MD - 11/04/2024 9:45 AM EDT Images from the original note were not included. Skin Check Location: Patient requests a skin examination from the waist up Dermatologic history: history of Actinic Keratosis, history of Basal Cell Carcinoma, history of Squamous Cell Carcinoma (history of kidney transplant) Last visit: 6 months ago- last skin exam Last visit: 06/14/24 Mohs to left lutheran SCC and 06/19/24 forED&C BCC on the left upper back All pertinent medical history, medications, and allergies were reviewed. General Exam: alert, oriented to person, place, and time, normal affect, well appearing Unaccompanied A complete skin exam was offered, pt declined. Areas not examined despite medical recommendation: From the waist down Scalp, Examined , exam limited by hair Head, Face Examined , Exam limited by lopez and mustache Neck Examined Chest Examined Back Examined Abdomen Examined Right arm Examined Left arm Examined Hands Examined Digits,nails: Examined Lymphatics: Not examined Skin Exam 1. LENTIGINES Generalized Scattered garcia macules in sun-exposed areas. The patient was informed that lentigines are benign pigmented lesions that occur on sun-exposed andsun-damaged skin. No treatment is necessary. Recommended regular use of broad spectrum sunscreen SPF 30 or higher 2. SEBORRHEIC KERATOSIS Generalized Stuck on verrucous, garcia-brown papules and plaques. Patient was counseled regarding these benign growths. Removal is normally not necessary, but they may be removed if they are symptomatic or for cosmetic reasons. 3. HISTORY OF BASAL CELL CARCINOMA Right Mid Back No evidence of recurrence at BCC scar. The patient was counseled that scars from excisional sites of nonmelanoma skin cancers should be monitored closely for recurrence. The patient was instructed to contact the office for any new, changing, or symptomatic moles. The patient was also instructed to contact the office for any new lesions that develop within or around the previous surgery scar. 4. ACTINIC KERATOSIS (8) Left Eyebrow, Left Forearm - Anterior, Left Mandaen, Mid Parietal Scalp (3), Mid Tip of Nose, Right Buccal Cheek Erythematous scaly papules Patient was counseled regarding these sun-induced growths that can develop into squamous cell carcinoma if left untreated. Discussed treatment with cryotherapy. It was emphasized that any treated lesions that fail to resolve should be re- evaluated. Cryotherapy performed today; see procedure note Diagnosis: Actinic keratosis Indication: Precancerous Location: see skin exam Consent: Verbal consent was obtained and risks were discussed, including, but not limited to risks of scarring, darker or brush finisher pigmentary changes, recurrence, incomplete removal and infection. Method: Liquid nitrogen was used to treat the lesion(s) with two 5-10 second freeze-thaw cycles. Eyes were shielded using cotton pad during procedure Number of lesions treated: 8 Post-procedure instructions: Instructions were given orally and in writing. The office will be contacted if the lesion fails to resolve despite treatment, or if a side effect develops such as abnormal crusting, scabbing, redness or tenderness Cryotherapy, skin lesion - Left Eyebrow, Left Forearm - Anterior, Left Mandaen, Mid Parietal Scalp (3), Mid Tip of Nose, Right Buccal Cheek 5. NEOPLASM OF UNSPECIFIED BEHAVIOR OF BONE, SOFT TISSUE, AND SKIN (4) Right Parietal Scalp Coolin pearly papule Lesion biopsy Type of biopsy: tangential Informed consent: discussed and consent obtained Informed consent comment: The risks and benefits of the biopsy were discussed. Risks include but are not limited to bleeding, infection, scarring, pain, and nerve damage. An opportunity to ask questions prior to the procedure was permitted and all questions were answered. Patient was prepped and draped in usual sterile fashion: area cleansed with alcohol. Anesthesia: the lesion was anesthetized in a standard fashion Anesthetic: 1% lidocaine w/ epinephrine 1-100,000 buffered w/ 8.4% NaHCO3 Instrument used: DermaBlade Hemostasis achieved with: electrodesiccation Outcome: patient tolerated procedure well Outcome comment: The specimen was placed in a prelabeled formalin container to be sent for pathology Post-procedure details: sterile dressing applied and wound care instructions given Post-procedure details comment: Emphasized need to contact clinic for any signs of infection, uncontrollable bleeding, or complications. Dressing type: bandage Additional details: Photo taken Amount of lidocaine used: 1.0 Specimen A - Dermatopathology exam Differential Diagnosis: BCC Check Margins: No Size of lesion: 1.2 x 1.0 cm Right Preauricular Area Coolin scaly plaque Lesion biopsy Type of biopsy: tangential Informed consent: discussed and consent obtained Informed consent comment: The risks and benefits of the biopsy were discussed. Risks include but are not limited to bleeding, infection, scarring, pain, and nerve damage. An opportunity to ask questions prior to the procedure was permitted and all questions were answered. Patient was prepped and draped in usual sterile fashion: area cleansed with alcohol. Anesthesia: the lesion was anesthetized in a standard fashion Anesthetic: 1% lidocaine w/ epinephrine 1-100,000 buffered w/ 8.4% NaHCO3 Instrument used: DermaBlade Hemostasis achieved with: electrodesiccation Outcome: patient tolerated procedure well Outcome comment: The specimen was placed in a prelabeled formalin container to be sent for pathology Post-procedure details: sterile dressing applied and wound care instructions given Post-procedure details comment: Emphasized need to contact clinic for any signs of infection, uncontrollable bleeding, or complications. Dressing type: bandage Additional details: Photo taken Amount of lidocaine used: 1.0 cc Specimen B - Dermatopathology exam Differential Diagnosis: SCC vs AK Check Margins: No Size of lesion: 1.1 x 1.0 cm Mid chest Hyperkeratotic papule Lesion biopsy Type of biopsy: tangential Informed consent: discussed and consent obtained Informed consent comment: The risks and benefits of the biopsy were discussed. Risks include but are not limited to bleeding, infection, scarring, pain, and nerve damage. An opportunity to ask questions prior to the procedure was permitted and all questions were answered. Patient was prepped and draped in usual sterile fashion: area cleansed with alcohol. Anesthesia: the lesion was anesthetized in a standard fashion Anesthetic: 1% lidocaine w/ epinephrine 1-100,000 buffered w/ 8.4% NaHCO3 Instrument used: DermaBlade Hemostasis achieved with: electrodesiccation Outcome: patient tolerated procedure well Outcome comment: The specimen was placed in a prelabeled formalin container to be sent for pathology Post-procedure details: sterile dressing applied and wound care instructions given Post-procedure details comment: Emphasized need to contact clinic for any signs of infection, uncontrollable bleeding, or complications. Dressing type: bandage Additional details: Photo taken Amount of lidocaine used: 1.0 cc Specimen C - Dermatopathology exam Differential Diagnosis: AK vs SCC vs ISK Check Margins: Yes Size of lesion: 0.5 x 0.5 cm Right chest Hyperkeratotic papule Lesion biopsy Type of biopsy: tangential Informed consent: discussed and consent obtained Informed consent comment: The risks and benefits of the biopsy were discussed. Risks include but are not limited to bleeding, infection, scarring, pain, and nerve damage. An opportunity to ask questions prior to the procedure was permitted and all questions were answered. Patient was prepped and draped in usual sterile fashion: area cleansed with alcohol. Anesthesia: the lesion was anesthetized in a standard fashion Anesthetic: 1% lidocaine w/ epinephrine 1-100,000 buffered w/ 8.4% NaHCO3 Instrument used: DermaBlade Hemostasis achieved with: electrodesiccation Outcome: patient tolerated procedure well Outcome comment: The specimen was placed in a prelabeled formalin container to be sent for pathology Post-procedure details: sterile dressing applied and wound care instructions given Post-procedure details comment: Emphasized need to contact clinic for any signs of infection, uncontrollable bleeding, or complications. Dressing type: bandage Additional details: Photo taken Amount of lidocaine used: 1.0 cc Specimen D - Dermatopathology exam Differential Diagnosis: AK vs SCC vs ISK Check Margins: Yes Size of lesion: 0.5 x 0.4 cm 6. SEBORRHEIC KERATOSIS, INFLAMED (14) Left Breast (3), Left Lower Back (2), Neck - Anterior, Right Breast (4), Right Frontal Scalp, RightLower Back (2), Right Preauricular Area Coolin and brown stuck on verrucous scaly papule with surrounding erythema The patient was informed that symptomatic seborrheic keratoses are benign growths that become inflamed, itchy, tender, traumatized, caught on clothing, or bleed. Symptomatic lesions can be treated with cryotherapy or curretage. Thicker lesions treated with cryotherapy may require more than one treatment. The patient was instructed to notify the office if abnormal redness or tenderness develops atthe treatment site. Cryotherapy today, see procedure note. Diagnosis: Inflamed seborrheic keratosis Indication: Inflamed Consent: Verbal consent was obtained and risks were discussed, including, but not limited to risks of scarring, darker or brush finisher pigmentary changes, recurrence, incomplete removal and infection. Method: Liquid nitrogen was used to treat the lesion(s) with two 5-10 second freeze-thaw cycles Number of lesions treated: 14 Post-procedure instructions: Instructions were given orally and in writing. The office will be contacted if the lesion fails to resolve despite treatment, or if a side effect develops such as abnormal crusting, scabbing, redness or tenderness Cryotherapy, skin lesion - Left Breast (3), Left Lower Back (2), Neck - Anterior, Right Breast (4),Right Frontal Scalp, Right Lower Back (2), Right Preauricular Area Next Visit: 6 months documented in this encounter Plan of Treatment Upcoming Encounters Date Type Department Care Team (Late st Contact Info) Description 01/03/2025 8:30 AM EDT Office Visit [facility] [address] [place] [phone] Avelina Fernandez MD [address] [place] [address] documented as of this encounter Procedures Procedure Name Priority Date/Time Associated Diagnosis Comments SKIN / NAIL BIOPSY Routine 11/04/2024 9: 49 AM EDT Neoplasm of unspecified behavior of bone, soft tissue, and skin SKIN / NAIL BIOPSY Routine 11/04/2024 9: 49 AM EDT Neoplasm of unspecified behavior of bone, soft tissue, and skin CRYOTHERAPY SKIN LESION Routine 11/05/19 9:48 AM EDT Seborrheic keratosis, inflamed SKIN / NAIL BIOPSY Routine 11/04/2024 9: 47 AM EDT Neoplasm of unspecified behavior of bone, soft tissue, and skin SKIN / NAIL BIOPSY Routine 11/04/2024 9: 46 AM EDT Neoplasm of unspecified behavior of bone, soft tissue, and skin CRYOTHERAPY SKIN LESION Routine 11/05/19 9:45 AM EDT Actinic keratosis ZZDERMATOPATHOLOGY EXAM UNORDERABLE Routine 11/04/2024 12:00 AM EDT Seborrheic keratosis Neoplasm of unspecified behavior of bone, soft tissue, and skin DERMATOPATHOLOGY EXAM Routine 11/04/2024 12:00 AM EDT Neoplasm of unspecified behavior of bone, soft tissue, and skin documented in this encounter Results * Lesion biopsy (11/04/2024 9:49 AM EDT) Narrative [place], [place] - 11/04/2024 9:49 AM EDT Type of biopsy: tangential Informed consent: discussed and consent obtained Informed consent comment: The risks and benefits of the biopsy were discussed. Risks include but are not limited to bleeding, infection, scarring, pain, and nerve damage. An opportunity to ask questions prior to the procedure was permitted and all questions were answered. Patient was prepped and draped in usual sterile fashion: area cleansed with alcohol. Anesthesia: the lesion was anesthetized in a standard fashion Anesthetic: 1% lidocaine w/ epinephrine 1-100,000 buffered w/ 8.4% NaHCO3 Instrument used: DermaBlade Hemostasis achieved with: electrodesiccation Outcome: patient tolerated procedure well Outcome comment: The specimen was placed in a prelabeled formalin container to be sent for pathology Post-procedure details: sterile dressing applied and wound care instructions given Post-procedure details comment: Emphasized need to contact clinic for any signs of infection, uncontrollable bleeding, or complications. Dressing type: bandage Additional details: Photo taken Amount of lidocaine used: 1.0 cc Result [facility] Kimberlyn Fishman MD DERM PROCEDURE ORDERABLES Fin al Result * Lesion biopsy (11/04/2024 9:49 AM EDT) Narrative [place] - 11/04/2024 9:49 AM EDT Type of biopsy: tangential Informed consent: discussed and consent obtained Informed consent comment: The risks and benefits of the biopsy were discussed. Risks include but are not limited to bleeding, infection, scarring, pain, and nerve damage. An opportunity to ask questions prior to the procedure was permitted and all questions were answered. Patient was prepped and draped in usual sterile fashion: area cleansed with alcohol. Anesthesia: the lesion was anesthetized in a standard fashion Anesthetic: 1% lidocaine w/ epinephrine 1-100,000 buffered w/ 8.4% NaHCO3 Instrument used: DermaBlade Hemostasis achieved with: electrodesiccation Outcome: patient tolerated procedure well Outcome comment: The specimen was placed in a prelabeled formalin container to be sent for pathology Post-procedure details: sterile dressing applied and wound care instructions given Post-procedure details comment: Emphasized need to contact clinic for any signs of infection, uncontrollable bleeding, or complications. Dressing type: bandage Additional details: Photo taken Amount of lidocaine used: 1.0 cc Result [facility] Kimberlyn Fishman MD DERM PROCEDURE ORDERABLES Fin al Result * Cryotherapy, skin lesion (11/04/2024 9:48 AM EDT) Result [facility] Kimberlyn Fishman MD DERM PROCEDURE ORDERABLES Fin al Result * Lesion biopsy (11/04/2024 9:47 AM EDT) Narrative [place] - 11/04/2024 9:47 AM EDT Type of biopsy: tangential Informed consent: discussed and consent obtained Informed consent comment: The risks and benefits of the biopsy were discussed. Risks include but are not limited to bleeding, infection, scarring, pain, and nerve damage. An opportunity to ask questions prior to the procedure was permitted and all questions were answered. Patient was prepped and draped in usual sterile fashion: area cleansed with alcohol. Anesthesia: the lesion was anesthetized in a standard fashion Anesthetic: 1% lidocaine w/ epinephrine 1-100,000 buffered w/ 8.4% NaHCO3 Instrument used: DermaBlade Hemostasis achieved with: electrodesiccation Outcome: patient tolerated procedure well Outcome comment: The specimen was placed in a prelabeled formalin container to be sent for pathology Post-procedure details: sterile dressing applied and wound care instructions given Post-procedure details comment: Emphasized need to contact clinic for any signs of infection, uncontrollable bleeding, or complications. Dressing type: bandage Additional details: Photo taken Amount of lidocaine used: 1.0 cc Result [facility] Kimberlyn Fishman MD DERM PROCEDURE ORDERABLES Fin al Result * Lesion biopsy (11/04/2024 9:46 AM EDT) Narrative [place] - 11/04/2024 9:46 AM EDT Type of biopsy: tangential Informed consent: discussed and consent obtained Informed consent comment: The risks and benefits of the biopsy were discussed. Risks include but are not limited to bleeding, infection, scarring, pain, and nerve damage. An opportunity to ask questions prior to the procedure was permitted and all questions were answered. Patient was prepped and draped in usual sterile fashion: area cleansed with alcohol. Anesthesia: the lesion was anesthetized in a standard fashion Anesthetic: 1% lidocaine w/ epinephrine 1-100,000 buffered w/ 8.4% NaHCO3 Instrument used: DermaBlade Hemostasis achieved with: electrodesiccation Outcome: patient tolerated procedure well Outcome comment: The specimen was placed in a prelabeled formalin container to be sent for pathology Post-procedure details: sterile dressing applied and wound care instructions given Post-procedure details comment: Emphasized need to contact clinic for any signs of infection, uncontrollable bleeding, or complications. Dressing type: bandage Additional details: Photo taken Amount of lidocaine used: 1.0 Result [facility] Kimberlyn Fishman MD DERM PROCEDURE ORDERABLES Fin al Result * Cryotherapy, skin lesion (11/04/2024 9:45 AM EDT) Result [facility] Kimberlyn Fishman MD DERM PROCEDURE ORDERABLES Fin al Result * Dermatopathology exam (11/04/2024 12:00 AM EDT) SPECIMEN TYPE --- SPECIMEN: RIGHT PARIETAL SCALP --- [facility] ICD10 Code C44.41 [facility] PROTOCOL F - FLAT [facility] Final Diagnosis NODULAR BASAL CELL CARCINOMA (SEE COMMENT). COMMENT: The tumor is transected across the base and at the edges. [facility] Gross Text [facility] Microscopic Description Microscopic examination performed. [facility] SPECIMEN TYPE --- SPECIMEN: RIGHT PREAURICULAR AREA --- [facility] ICD10 Code L57.0 [facility] PROTOCOL F - FLAT [facility] Final Diagnosis ACTINIC KERATOSIS. [facility] Gross Text [facility] Microscopic Description Microscopic examination performed. [facility] SPECIMEN TYPE --- SPECIMEN: MID CHEST --- [facility] ICD10 Code D23.5 [facility] PROTOCOL F - FLAT [facility] Final Diagnosis VERRUCAL KERATOSIS (SEE COMMENT). COMMENT: The lesion shows features of a senescent verruca. The lesion is transected at an edge. [facility] Gross Text [facility] Microscopic Description Microscopic examination performed. [facility] SPECIMEN TYPE --- SPECIMEN: RIGHT CHEST --- [facility] ICD10 Code L57.0 [facility] PROTOCOL F - FLAT [facility] Final Diagnosis HYPERTROPHIC ACTINIC KERATOSIS (SEE COMMENT). COMMENT: The lesion is transected at an edge. [facility] Gross Text [facility] Microscopic Description Microscopic examination performed. [facility] CPT 04401*4 [facility] Skin (tissue) specimen (specimen) Topography unknown / Unknown 11/04/2024 9:46 AM EDT Comment:Differential Diagnos is: BCC Check Margins: No Size of lesion: 1.2 x 1.0 cm Skin (tissue) specimen (specimen) Topography unknown / Unknown 11/04/2024 9:47 AM EDT Comment:Differential Diagnos is: SCC vs AK Check Margins: No Size of lesion: 1.1 x 1.0 cm Skin (tissue) specimen (specimen) Topography unknown / Unknown 11/04/2024 9:49 AM EDT Comment:Differential Diagnos is: AK vs SCC vs ISK Check Margins: Yes Size of lesion: 0.5 x 0.5 cm Skin (tissue) specimen (specimen) Topography unknown / Unknown 11/04/2024 9:49 AM EDT Comment:Differential Diagnos is: AK vs SCC vs ISK Check Margins: Yes Size of lesion: 0.5 x 0.4 cm Kimberlyn Fishman MD LAB PATHOLOGY ORDERABLES Margo field Result [facility] documented in this encounter Visit Diagnoses Diagnosis Seborrheic keratosis- Primary Lentigines History of basal cell carcinoma Personal history of other malignant neoplasm of skin Actinic keratosis Neoplasm of unspecified behavior of bone, soft tissue, and skin Seborrheic keratosis, inflamed documented in this encounter Additional Health Concerns Assessment Noted Time PHQ-9 Depression Total Score: 0 10/04/19 25 11:32 AM EDT documented as of this encounter Care Teams Hotel Guest Service Agent Relationship Specialty Start Date End Date Rosa M Del Toro MD [address] [place] [address] PCP - General Family Medicine 10/25/22 Rosa M Platt RN [address] [facility] [address] Registered Nurse Family Medicine 03/01/23 documented as of this encounter
--- OUTSIDE RECORDS SUMMARY | 2024-11-15 08:41 | XMS_ITS | Clinical Summary ---
Author Organization [facility] tem Address [id number] [address] [place] [address] Care Team Providers Care Commercial Lines Manager Name Role Phone Unavailable Primary Care Provider [...] exists Medical Devices Not on file Insurance [facility] MEDIC[facility]
--- OUTSIDE RECORDS SUMMARY | 2024-11-15 08:42 | XMS_ITS | Encounter Summary ---
Author Organization [facility] Address [address] [place] [address] Care Team Providers Care Roundsman Name Role Phone Rosa M Del Toro MD Primary Care Provider Rosa M Platt RN Unavailable [phone] Encounter Details Date Type Department Care Team (Late st Contact Info) Description 11/07/2024 Results Follow-Up [facility] [address] [facility] [address] [place] [phone] Kimberlyn Fishman MD [address] [facility] [address] [place] [address] Social History Tobacco Use Types Packs/Day Years [...] often do you attend chur ch or anabaptist services? 1 to 4 times per year 11/01/2022 Do you belong to any clubs o r organizations such as jewish groups, unions, fraternal or athletic groups, or [...] 10/03/2024 [facility] of Occupat ionsd Health - Occupational Stress Questionnaire Answer Date [...] Office Visit [facility] [address] [place] [phone] Avelina Fernandez MD [address] [facility] [address] [place] [address] documented as of this encounter Visit Diagnoses Not on filedocumented in this encounter Additional Health Concerns Assessment Noted Time PHQ-9 Depression Total Score: 0 10/04/19 25 11:32 AM EDT documented as of this encounter Care Teams Roundsman Relationship Specialty Start Date End Date Rosa M Del Toro MD [address] [facility] [address] [place], [place] [id number] PCP - General Family Medicine 10/25/22 Rosa M Platt RN [address] [facility] [place] [address] Registered Nurse Family Medicine 03/01/23 documented as of this encounter
--- OUTSIDE RECORDS SUMMARY | 2024-11-15 08:42 | XMS_ITS | Encounter Summary ---
Author Organization [facility] Healthcare Address [address] [facility] [place] [address] Care Team Providers Care Metal Work Duct Installer Name Role Phone Rosa M Del Toro MD Unavailable [phone] Rosa M Del Toro MD Primary Care Provider [phone] Rosa M Platt RN Unavailable [phone] Rosa M Del Toro MD Unavailable [phone] Rosa M Del Toro MD Unavailable [phone] Encounter Details Date Type Department Care Team (Late st Contact Info) Description 01/31/2023 Abstract [facility] Family Medicine [address] [place] [address] Rosa M Del Toro MD [address] [place], [place] [address] Social History Tobacco Use Types Packs/Day Years [...] often do you attend chur ch or islam services? 1 to 4 times per year [...] Recorded Patient Health Questionnaire-2 Score 0 11/08/2022 [facility] [place] of Occupat ional Health - Occupational Stress [...] Dermatology [address] [place] [address] Avelina Fernandez MD [address] [place] [address] documented as of this encounter Visit Diagnoses Not on filedocumented in this encounter Additional Health Concerns Assessment Noted Time PHQ-9 Depression Total Score: 0 11/09/19 9:00 AM EDT documented as of this encounter Care Teams Metal Work Duct Installer Relationship Specialty Start Date End Date Rosa M Del Toro MD [address] [place] [address] PCP - ACO Reach 09/08/22 06/15/23 Rosa M Del Toro MD [address] [place], [place] [address] PCP - General Family Medicine 10/25/22 Rosa M Del Toro MD [address] [facility] [place] [address] PCP - ACO Reach 08/16/23 05/23/24 Rosa M Del Toro MD [address] [facility] [place] [address] PCP - ACO Reach 05/31/24 07/18/24 Rosa M Platt RN [address] [place] [address] Registered Nurse Family Medicine 03/01/23 documented as of this encounter
--- OUTSIDE RECORDS SUMMARY | 2024-11-15 08:42 | XMS_ITS | Encounter Summary ---
Author Organization [facility] Healthcare Address [address] [facility] [place] [address] Care Team Providers Care Web Publisher Name Role Phone Rosa M Del Toro MD Primary Care Provider Rosa M Platt RN Unavailable [phone] Rosa M Del Toro MD Unavailable Rosa M Del Toro MD Unavailable [phone] Reason for Visit * Reason Onset Date Comments Med Refill 03/19/2024 Encounter Details Date Type Department Care Team (Late st Contact Info) Description 03/19/2024 Refill [facility] Family Medicine [address] [place] [address] Rosa M Del Toro MD [address] [place] [address] Aftercare following organ transplant (Primary [...] any clubs o r organizations such as mu-ism groups, unions, fraternal or athletic groups, or [...] Recorded Patient Health Questionnaire-2 Score 0 03/21/2024 [facility] [place] of Occupat ional Health - Occupational Stress [...] Description 01/03/2025 8:30 AM EDT Office Visit [facility] [address] [place] [address] Avelina Fernandez MD [address] [place] [address] documented as of this encounter Visit Diagnoses Diagnosis Aftercare following organ transplant- Primary documented in this encounter Additional Health Concerns Assessment Noted Time PHQ-9 Depression Total Score: 0 11/09/19 9:00 AM EDT documented as of this encounter Care Teams Web Publisher Relationship Specialty Start Date End Date Rosa M Del Toro MD [address] [place] [address] PCP - General Family Medicine 10/25/22 Rosa M Del Toro MD [address] [place] [address] PCP - ACO Reach 08/16/23 05/23/24 Rosa M Del Toro MD [address] [place] [address] PCP - ACO Reach 05/31/24 07/18/24 Rosa M Platt RN [address] [place] [address] Registered Nurse Family Medicine 03/01/23 documented as of this encounter
--- OUTSIDE RECORDS SUMMARY | 2024-11-15 08:42 | XMS_ITS | Clinical Summary ---
Author Organization [facility] Address [address] [place] [address] Phone Care Team Providers Care Avionics Repair Technician Name Role Phone Rosa M Del Toro MD Primary Care Provider [phone] Social History Tobacco Use Types Packs/Day Years [...] of Treatment Not on file Care Teams Avionics Repair Technician Relationship Specialty Start Date End Date Rosa M Del Toro MD [address] [place] [address] PCP - General 04/23/21
--- OUTSIDE RECORDS SUMMARY | 2024-11-15 08:42 | XMS_ITS | Encounter Summary ---
Author Organization [facility] Address [address] [facility] [place] [address] Care Team Providers Care Title Assistant Name Role Phone Mukund Gonzales MD Primary Care Provider [phone] Mukund Platt RN Unavailable [phone] Mukund Gonzales MD Unavailable [phone] Mukund Gonzales MD Unavailable [phone] Encounter Details Date Type Department Care Team [...] often do you attend chur ch or adventist services? 1 to 4 times per year 11/01/2022 Do you belong to any clubs o r organizations such as latter day groups, unions, fraternal or athletic groups, or [...] Recorded Patient Health Questionnaire-2 Score 0 11/23/2023 [facility] - Occupational Stress Questionnaire Answer Date [...] Dermatology [address] [place] [address] Avelina Fernandez MD [address] [place] [address] documented as of this encounter Procedures Procedure Name Priority Date/Time Associated Diagnosis Comments CA ECHO DOPPLER COMPLETE 12/07/2023 11:34 AM EDT documented in this encounter Results * CA ECHO DOPPLER COMPLETE (12/07/2023 11:34 AM EDT) Anatomical Region Laterality Modality Other 12/07/2023 11:3 4 AM EDT Narrative 12/07/2023 11:35 AM EDT [facility] [place] [id number] Cardiology Report Signed Patient: VISHAL DUKE MR#: [id number] : 1960 Acct:[id number] Age/Sex: 62 / M ADM Date: 12/07/23 Loc: CARD Attending Dr: Calin Brown M.D. Ordering Physician: Calin Brown M.D. Date of Service: 12/07/23 Procedure(s): CA echo doppler complete Accession Number(s): [id number] cc: Calin Brown M.D.; MUKUND GONZALES Patient Name: VISHAL DUKE MR#: [id number] : 1960 Exam Date: 12/07/2023 Ordering Doctor: DR CALIN BROWN M.D. ECHOCARDIOGRAM REPORT PROCEDURE: CA ECHO [...] Pressure: 32.29 ml, 32.29 ml Dictated by: Calin Brown M.D. on 12/07/2023 at 11:30 Approved by: Calin Brown M.D. on 12/07/2023 at 11:34 Dictated By: Calin Brown M.D. Signed By: 12/07/23 1135 DD/ 1134 TD/TT: Microbiology Teacher: Procedure Note Radiology, Radiologist, - 12/07/2023 [place] [address] Cardiology Report Signed Patient: VISHAL DUKE DMR#: [id number] : 1960cct:[id number] Age/Sex: 62 / MADM Date: 12/07/23 Loc: CARD Attending Dr: Calin Brown M.D. Ordering Physician: Calin Brown M.D. Date of Service: 12/07/23 Procedure(s): CA echo doppler complete Accession Number(s): [id number] cc: Calin Brown M.D.; MUKUND GONZALES Patient Name: VISHAL DUKE MR#: [id number] : 1960 Exam Date: 12/07/2023 Ordering Doctor: DR CALIN BROWN M.D. ECHOCARDIOGRAM REPORT PROCEDURE: CA ECHO [...] Pressure: 32.29 ml, 32.29 ml Dictated by: Calin Brown M.D. on 12/07/2023 at 11:30 Approved by: Calin Brown M.D. on 12/07/2023 at 11:34 Dictated By: Calin Brown M.D. Signed By:12/07/23 1135 DD/ 1134 TD/TT: Microbiology Teacher: us Generic External Data Provider [facility] Final Result documented in this encounter Visit Diagnoses Not on filedocumented in this encounter Additional Health Concerns Assessment Noted Time PHQ-9 Depression Total Score: 0 11/09/19 9:00 AM EDT documented as of this encounter Care Teams Title Assistant Relationship Specialty Start Date End Date Mukund Gonzales MD [address] [place] [address] PCP - General Family Medicine 10/25/22 Mukund Gonzales MD [address] [facility] [place] [address] PCP - ACO Reach 08/16/23 05/23/24 Mukund Gonzales MD [address] [facility] [place] [address] PCP - ACO Reach 05/31/24 07/18/24 Mukund Platt, TATO [address] [facility] [place] [address] Registered Nurse Family Medicine 03/01/23 documented as of this encounter
--- OUTSIDE RECORDS SUMMARY | 2024-11-15 08:42 | XMS_ITS | Encounter Summary ---
Author Organization [facility] Address [address] [facility] [place] [address] Care Team Providers Care Equipment Operation Instructor Name Role Phone Rosa M Del Toro MD Primary Care Provider [phone] Rosa M Platt RN Unavailable [phone] Rosa M Del Toro MD Unavailable Rosa M Del Toro MD Unavailable [phone] Reason for Visit * Reason Comments Med Refill Encounter Details Date Type Department Care Team (Late st Contact Info) Description 10/17/2023 Refill [facility] Family Medicine [address] [place] [address] Rosa M Del Toro MD [address] [place], [place] [id number] History of kidney transplant (HCC) Social History [...] any clubs o r organizations such as sabianism groups, unions, fraternal or athletic groups, or [...] Recorded Patient Health Questionnaire-2 Score 0 07/27/2023 [facility] [place] of Occupat ional Health - Occupational Stress [...] Dermatology [address] [place] [address] Avelina Fernandez MD [address] [place] [address] documented as of this encounter Visit Diagnoses Diagnosis History of kidney transplant (HCC) Kidney replaced by transplant documented in this encounter Additional Health Concerns Assessment Noted Time PHQ-9 Depression Total Score: 0 11/09/19 23 9:00 AM EDT documented as of this encounter Care Teams Equipment Operation Instructor Relationship Specialty Start Date End Date Rosa M Del Toro MD [address] [place] [address] PCP - General Family Medicine 10/25/22 Rosa M Del Toro MD [address] [facility] [place] [address] PCP - ACO Reach 08/16/23 05/23/24 Rosa M Del Toro MD [address] [place] [address] PCP - ACO Reach 05/31/24 07/18/24 Rosa M Platt, TATO [address] [place] [address] Registered Nurse Family Medicine 03/01/23 documented as of this encounter
--- OUTSIDE RECORDS SUMMARY | 2024-11-15 08:42 | XMS_ITS | Encounter Summary ---
Author Organization [facility] Healthcare Address [address] [facility] [place] [address] Care Team Providers Care Food Beverage Server Name Role Phone Rosa M Del Toro MD Primary Care Provider [phone] Rosa M Platt RN Unavailable [phone] Rosa M Del Toro MD Unavailable [phone] Rosa M Del Toro MD Unavailable [phone] Reason for Visit * Reason Onset Date Comments Med Refill 07/26/2023 Encounter Details Date Type Department Care Team (Late st Contact Info) Description 07/26/2023 [facility]ill [facility] Family Medicine [address] [place] [address] Rosa M Del Toro MD [address] [place] [address] History of kidney transplant (HCC) [...] How often do you attend chur or lutheran services? 1 to 4 times per year 11/01/2022 Do you belong to any clubs o r organizations such as sikhism groups, unions, fraternal or athletic groups, or [...] Recorded Patient Health Questionnaire-2 Score 0 07/27/2023 [facility] [place] of Occupat ional Health - Occupational Stress [...] things Not at all 07/27/2023 1:00 PM Domenica Hoover MA Feeling down, depressed, or hopeless Not at all 07/27/2023 1:00 PM Domenica Hoover MA Patient Health Questionnaire -2 Score 0 [...] Dermatology [address] [place] [id number] Avelina Fernandez MD [address] [place] [address] documented as of this encounter Visit Diagnoses Diagnosis History of kidney transplant (HCC) Kidney replaced by transplant documented in this encounter Additional Health Concerns Assessment Noted Time PHQ-9 Depression Total Score: 0 11/09/19 9:00 AM EDT documented as of this encounter Care Teams Food Beverage Server Relationship Specialty Start Date End Date Rosa M Del Toro MD [address] [place] [address] PCP - General Family Medicine 10/25/22 Rosa M Del Toro MD [address] [place] [address] PCP - ACO Reach 08/16/23 05/23/24 Rosa M Del Toro MD [address] [place] [address] PCP - ACO Reach 05/31/24 07/18/24 Rosa M Platt RN [address] [place] [address] Registered Nurse Family Medicine 03/01/23 documented as of this encounter
--- OUTSIDE RECORDS SUMMARY | 2024-11-15 08:42 | XMS_ITS | Encounter Summary ---
Author Organization [facility] Healthcare Address [address] [facility] [place] [address] Care Team Providers Care Pile Header Name Role Phone Rosa M Del Toro MD Primary Care Provider [phone] Rosa M Platt RN Unavailable [phone] Rosa M Del Toro MD Unavailable Rosa M Del Toro MD Unavailable [phone] Reason for Visit * Reason Onset Date Comments Med Refill 05/19/2024 Encounter Details Date Type Department Care Team (Late st Contact Info) Description 05/19/2024 Refill [facility] Family Medicine [address] [place] [address] Rosa M Del Toro MD [address] [place] [address] History of kidney transplant (HCC) [...] How often do you attend chur or protestant services? 1 to 4 times per year 11/01/2022 Do you belong to any clubs o r organizations such as sikh groups, unions, fraternal or athletic groups, or [...] Recorded Patient Health Questionnaire-2 Score 0 03/21/2024 [facility] [place] of Occupat ional Health - Occupational Stress [...] 01/03/2025 8:30 AM EDT Office Visit [facility] [address] [place] [address] Avelina Fernandez MD [address] [place], [place] [address] documented as of this encounter Visit Diagnoses Diagnosis History of kidney transplant (HCC) Kidney replaced by transplant documented in this encounter Additional Health Concerns Assessment Noted Time PHQ-9 Depression Total Score: 0 11/09/19 9:00 AM EDT documented as of this encounter Care Teams Pile Header Relationship Specialty Start Date End Date Rosa M Del Toro MD [address] [place] [address] PCP - General Family Medicine 10/25/22 Rosa M Del Toro MD [address] [facility] [place] [address] PCP - ACO Reach 08/16/23 05/23/24 Rosa M Del Toro MD [address] [facility] [place] [address] PCP - ACO Reach 05/31/24 07/18/24 Rosa M Platt RN [address] [facility] [place] [address] Registered Nurse Family Medicine 03/01/23 documented as of this encounter
--- OUTSIDE RECORDS SUMMARY | 2024-11-15 08:42 | XMS_ITS ---
Author Organization [facility] Address [address] [place] [address] Care Team Providers Care Director Export Name Role Phone Rosa M Del Toro MD Primary Care Provider [phone] Bobby Agee MD Unavailable Petey Redding CNP Unavailable [phone] Guido Campos MD Unavailable [phone] Transplant Episode Kidney Recipient [facility] ([place], [place]) - [facility] Organ Received: Left Kidney Transplanted on 08/15/2017 Marked as Active Follow-up on 08/15/2017 Kidney CoordinatorCitlaly Newell RN Phone: N/A Fax: N/A Email: N/A Ute Organ Diagnosis Organ Primary Contributory Kidney Polycystic [...] UNOS qualified: 10/09/2014 Center waitlisted: 3 Appointments (10/15/2024 - 12/16/2024) When With Visit Type Description 10/17/2024 Transplant - [facility] Follow Up Appoint ment Immunosuppression (Primary Dx); Renal transplant recipient; Impaired fasting blood sugar; Hypertension, unspecified type; Erythrocytosis Dialysis History Dialysis History Start End Type Comments Center 02/01/2016 08/15/2017 Hemo [facility] Dialysis Center Information Center Phone Fax Address [facility] [phone] [address] [place] [address]
--- OUTSIDE RECORDS SUMMARY | 2024-11-15 08:42 | XMS_ITS | Encounter Summary ---
Author Organization [facility] Healthcare Address [address] [facility] [place] [address] Care Team Providers Care Wardrobe Stylist Name Role Phone Rosa M Del Toro MD Primary Care Provider [phone] Rosa M Platt RN Unavailable [phone] Rosa M Del Toro MD Unavailable Rosa M Del Toro MD Unavailable [phone] Reason for Visit * Reason Onset Date Comments Med Refill 06/27/2023 Encounter Details Date Type Department Care Team (Late st Contact Info) Description 06/27/2023 Refill [facility] Family Medicine [address] [place] [address] Rosa M Del Toro MD [address] [place] [address] Simple chronic bronchitis (HCC) (Primary Dx) Social [...] How often do you attend chur or cheondoism services? 1 to 4 times per year [...] Recorded Patient Health Questionnaire-2 Score 0 02/17/2023 [facility] [place] of Occupat ional Health - Occupational Stress [...] 01/03/2025 8:30 AM EDT Office Visit [facility] [address] [place] [address] Avelina Fernandez MD [address] [place] [address] documented as of this encounter Visit Diagnoses Diagnosis Simple chronic bronchitis (HCC)- Primary Simple chronic bronchitis documented in this encounter Additional Health Concerns Assessment Noted Time PHQ-9 Depression Total Score: 0 11/09/19 9:00 AM EDT documented as of this encounter Care Teams Wardrobe Stylist Relationship Specialty Start Date End Date Rosa M Del Toro MD [address] [place] [address] PCP - General Family Medicine 10/25/22 Rosa M Del Toro MD [address] [facility] [place] [address] PCP - ACO Reach 08/16/23 05/23/24 Rosa M Del Toro MD [address] [place] [address] PCP - ACO Reach 05/31/24 07/18/24 Rosa M Platt RN [address] [place] [address] Registered Nurse Family Medicine 03/01/23 documented as of this encounter
--- OUTSIDE RECORDS SUMMARY | 2024-11-15 08:42 | XMS_ITS | Encounter Summary ---
Author Organization [facility] Address [address] [place] [address] Care Team Providers Care Operations Intelligence Name Role Phone Rosa M Del Toro MD Primary Care Provider [phone] Bobby Agee MD Unavailable Petey Redding CNP Unavailable [phone] Guido Campos MD Unavailable [phone] Reason for Visit * Reason Onset Date Comments Med Refill 11/11/2024 Encounter Details Date Type Department Care Team (Late st Contact Info) Description 11/11/2024 Refill [facility] Heart at [facility] [address] [place] [address] Federico Chester MD [address] [facility] [place] [address] Coronary artery disease, unspecified vessel or lesion type, unspecified whether angina present, unspecified whether hydaburg or transplanted heart; Palpitations Social History Tobacco Use Types Packs/Day Years Used Date Smoking Tobacco: Former Cigarettes 1 31 977 - 2007 Smokeless Tobacco: Never Alcohol [...] Recorded Patient Health Questionnaire-2 Score 0 04/11/2024 [place] Safety & Environment Answer Date Rec orded [...] place to sleep or slept in a group home (including now)? No 01/25/2023 Hunger Vital [...] Care Team (Late st Contact Info) Description 04/24/2025 1:30 PM EST Follow-Up [facility] Transplant [address] [place] [id number] Sean Aden, VEHICLE MODIFICATION TECHNICIAN [address] [place] [address] documented as of this encounter Visit Diagnoses Diagnosis Coronary artery disease, unspecified vessel or lesion type, unspecified whether angina present, unspecified whether hydaburg or transplanted heart Palpitations documented in this encounter Care Teams Operations Intelligence Relationship Specialty Start Date End Date Rosa M Del Toro MD PCP - General 01/25/22 Bobby Agee MD [address] [place] [address] Dr [address] [place] [address] Consulting Physician Urology 01/25/22 Petey Redding CNP [address] [place] [address] Dr [address] [place] [address] Nurse Practitioner Urology 09/27/22 Guido Campos MD [address] [place] [address] [place] [address] Consulting Physician Transplant Surgery 12/22/22 documented as of this encounter
--- OUTSIDE RECORDS SUMMARY | 2024-11-15 08:42 | XMS_ITS | Encounter Summary ---
Author Organization [facility] Address [address] [facility] [place] [address] Care Team Providers Care Insurance Risk Manager Name Role Phone Rosa M Del Toro MD Primary Care Provider [phone] Rosa M Platt RN Unavailable [phone] Encounter Details Date Type Department Care Team (Latest Contact Info) Description 11/04/2024 Travel Social History Tobacco Use Types Packs/Day [...] often do you attend chur ch or hoahaoism services? 1 to 4 times per year 11/01/2022 Do you belong to any clubs o r organizations such as christianity groups, unions, fraternal or athletic groups, or [...] Recorded Patient Health Questionnaire-2 Score 0 10/03/2024 [facility] of Occupat ional Health - [...] Dermatology [address] [place] [address] Avelina Fernandez MD [address] [place] [address] documented as of this encounter Visit Diagnoses Not on filedocumented in this encounter Additional Health Concerns Assessment Noted Time PHQ-9 Depression Total Score: 0 10/04/19 25 11:32 AM EDT documented as of this encounter Care Teams Insurance Risk Manager Relationship Specialty Start Date End Date Rosa M Del Toro MD [address] [facility] [place] [address] PCP - General Family Medicine 10/25/22 Rosa M Platt, RN [address] [facility] [place] [address] Registered Nurse Family Medicine 03/01/23 documented as of this encounter
--- OUTSIDE RECORDS SUMMARY | 2024-11-15 08:42 | XMS_ITS | Encounter Summary ---
Author Organization [facility] Address [address] [place] [address] Care Team Providers Care Nut Sifter Name Role Phone Rosa M Del Toro MD Primary Care Provider [phone] Rosa M Platt RN Unavailable Rosa M Del Toro MD Unavailable Rosa M Del Toro MD Unavailable [phone] Encounter Details Date Type Department Care Team (Late st Contact Info) Description 01/26/2024 Orders Only [facility] Family Medicine [address] [place] [address] Unallocated, [facility] ProviderMD [address] [place] [address] Social History Tobacco Use Types Packs/Day Years [...] How often do you attend chur or gnosticism services? 1 to 4 times per year 11/01/2022 Do you belong to any clubs o r organizations such as restorationism groups, unions, fraternal or athletic groups, or [...] Recorded Patient Health Questionnaire-2 Score 0 11/23/2023 [facility] of Occupat ional Health - Occupational [...] Dermatology [address] [place] [address] Avelina Fernandez MD [address] [place] [address] documented as of this encounter Procedures Procedure [...] documented as of this encounter Care Teams Nut Sifter Relationship Specialty Start Date End Date Rosa M Del Toro MD [address] [facility] [place] [address] PCP - General Family Medicine 10/25/22 Rosa M Del Toro MD [address] [facility] [place] [address] PCP - ACO Reach 08/16/23 05/23/24 Rosa M Del Toro MD [address] [facility] [place] [address] PCP - ACO Reach 05/31/24 07/18/24 Rosa M Platt RN [address] [facility] [address] [facility] [place] [place] [address] Registered Nurse Family Medicine 03/01/23 documented as of this encounter
--- OUTSIDE RECORDS SUMMARY | 2024-11-15 08:42 | XMS_ITS | Clinical Summary ---
Author Organization [facility] Address [address] [place] [address] Care Team Providers Care Pipefitter Name Role Phone Rosa M Del Toro MD Primary Care Provider [phone] Bobby Agee MD Unavailable Petey Redding CNP Unavailable [phone] Guido Campos MD Unavailable [phone] Allergies No known active allergies Medications aspirin 81 mg EC tablet Take 81 mg by mouth in the morning. Active magnesium oxide (Mag-Ox) 400 mg tablet 400 mg three times daily. Take 3 tablets Active albuterol (ProAir HFA) 90 mcg/actuation inhalerIndicatio ns:Dyspnea on exertion Inhale 2 puffs every 4 (four) hours if needed for wheezing or shortness of breath. 8.5 g 2 3 Active nitroglycerin (Nitrostat) 0.4 mg SL tabletIndication s:Coronary artery disease involving nightmute coronary artery of nightmute heart without angina pectoris Place 1 tablet (0.4 mg) under the tongue every 5 (five) minutes if needed for chest pain. 25 tablet 3 4 Active mycophenolate (Myfortic) 180 mg EC tabletIndication s:Aftercare following organ transplant Take 3 tablets (540 mg) by mouth two times daily. 540 tablet 3 5 Active empagliflozin (Jardiance) 10 mgIndications:Co ngestive heart failure, unspecified HF chronicity, unspecified heart failure type (CMS/HCC) Take 1 tablet (10 mg) by mouth once daily as directed. 90 tablet 5 05/22/19 Active tacrolimus (Prograf) 0.5 mg capsuleIndicatio ns:Kidney replaced by transplant Take 1 capsule (0.5 mg) by mouth two times daily. 60 capsule 5 06/11/19 Active ranolazine (Ranexa) 500 mg 12 hr tabletIndication s:Coronary artery disease, unspecified vessel or lesion type, unspecified whether angina present, unspecified whether nightmute or transplanted heart Take 1 tablet (500 mg) by mouth two times daily. Do not crush, chew, or split. 180 tablet 5 08/29/19 Active atorvastatin (Lipitor) 80 mg tabletIndication s:Coronary artery disease, unspecified vessel or lesion type, unspecified whether angina present, unspecified whether nightmute or transplanted heart Take 1 tablet (80 mg) by mouth at bedtime. 90 tablet 5 08/29/19 26 Active lisinopril 5 mg tabletIndication s:Aftercare following organ transplant,Essen tial hypertension TAKE 1 TABLET BY MOUTH IN THE MORNING 90 tablet 5 Active isosorbide mononitrate ER (Imdur) 60 mg 24 hr tabletIndication s:Chest pain, unspecified type Take 1 tablet (60 mg) by mouth once daily as directed. Do not crush or chew. 90 tablet 5 Active esomeprazole (NexIUM) [address] capsuleIndicatio ns:Gastroesophag eal reflux disease without esophagitis Take 1 capsule (40 mg) by mouth before breakfast. Do not open capsule. 90 capsule 5 Active clopidogrel (Plavix) 75 mg tabletIndication s:Coronary artery disease, unspecified vessel or lesion type, unspecified whether angina present, unspecified whether nightmute or transplanted heart Take 1 tablet (75 mg) by mouth once daily as directed. 90 tablet 5 11/13/19 Active metoprolol succinate XL (Toprol-XL) 100 mg 24 hr tabletIndication s:Palpitations Take 1 tablet (100 mg) by mouth in the morning. Do not crush or chew. 90 tablet 5 11/13/19 26 Active famotidine (Pepcid) 20 mg tablet Take 20 mg by mouth in the morning and at bedtime. 11/15/19 25 Discontin ued(Med List Cleanup) predniSONE (Deltasone) 5 mg tablet Take 5 mg by mouth in the morning. 11/15/19 25 Discontin ued(Med List Cleanup) methocarbamol (Robaxin) 500 mg tabletIndication s:ADPKD (autosomal dominant polycystic kidney disease) Take 1 tablet (500 mg) by mouth if needed in the morning, at noon, and at bedtime for muscle spasms for up to 5 days. 15 tablet 3 11/15/19 25 Discontin ued(Med List Cleanup) metoprolol succinate XL (Toprol-XL) 200 mg 24 hr tabletIndication s:Coronary artery disease, unspecified vessel or lesion type, unspecified whether angina present, unspecified whether nightmute or transplanted heart Take 0.5 tablets (100 mg) by mouth once daily as directed. Do not crush or chew. 90 tablet 3 4 10/18/19 25 Discontin ued(Thera py completed ) metoprolol succinate XL (Toprol-XL) 100 mg 24 hr tabletIndication s:Palpitations Take 1 tablet (100 mg) by mouth in the morning. Do not crush or chew. 90 tablet 3 5 10/18/19 25 Discontin ued(Reord er) isosorbide mononitrate ER (Imdur) 60 mg 24 hr tabletIndication s:Chest pain, unspecified type Take 1 tablet (60 mg) by mouth once daily as directed. Do not crush or chew. 90 tablet 3 5 10/18/19 25 Discontin ued(Reord er) esomeprazole (NexIUM) [address] capsuleIndicatio ns:Gastroesophag eal reflux disease without esophagitis Take 1 capsule (40 mg) by mouth before breakfast. Do not open capsule. 90 capsule 3 5 10/18/19 25 Discontin ued(Reord er) clopidogrel (Plavix) 75 mg tabletIndication s:Coronary artery disease, unspecified vessel or lesion type, unspecified whether angina present, unspecified whether nightmute or transplanted heart Take 1 tablet (75 mg) by mouth once daily as directed. 90 tablet 3 5 10/18/19 25 Discontin ued(Reord er) clopidogrel (Plavix) 75 mg tabletIndication s:Coronary artery disease, unspecified vessel or lesion type, unspecified whether angina present, unspecified whether nightmute or transplanted heart Take 1 tablet (75 mg) by mouth once daily as directed. 90 tablet 3 5 11/12/19 25 Discontin ued(Reord er) metoprolol succinate XL (Toprol-XL) 100 mg 24 hr tabletIndication s:Palpitations Take 1 tablet (100 mg) by mouth in the morning. Do not crush or chew. 90 tablet 3 5 11/12/19 25 Discontin ued(Reord er) Active Problems Problem Noted Date Diagnosed Date [...] 11/08/2022 12/05/2022 Coronary artery disease invo lving nightmute coronary artery of nightmute heart with unstable angina pectoris 11/08/2022 12/05/2022 [...] Encounters Date Type Department Care Team Description 11/11/[address] [address] Federico Chester MD Coronary artery disease, unspecified vessel or lesion type, unspecified whether angina present, unspecified whether nightmute or transplanted heart; Palpitations 10/22/2024 9:30 AM EDT Ancillary Procedure [address] [address] Encounter for checking and testing of cardiac pacemaker pulse generator (battery) 10/17/2024 2:30 PM EDT Follow-Up [facility] Transplant [address] [place] [id number] Sean Aden CNP Immunosuppression (Primary Dx); Renal transplant recipient; Impaired fasting blood sugar; Hypertension, unspecified type; Erythrocytosis 10/17/2024 10:00 AM EDT Office Visit [address] [place] [address] Federico Chester MD Gastroesophageal reflux disease without esophagitis (Primary Dx); Chest pain, unspecified type; Coronary artery disease, unspecified vessel or lesion type, unspecified whether angina present, unspecified whether nightmute or transplanted heart; Palpitations 10/06/[address] [place] [address] Federico Chester MD Essential hypertension (Primary Dx); Aftercare following organ transplant 09/18/2024 9:45 AM EDT Office Visit [address] [place] [address] Federico Chester MD Congestive heart failure, unspecified HF chronicity, unspecified heart failure type (CMS/HCC) (Primary Dx); Coronary artery disease, unspecified vessel or lesion type, unspecified whether angina present, unspecified whether nightmute or transplanted heart; Gastroesophageal reflux disease without esophagitis; Dizziness; Palpitations; Ischemic cardiomyopathy 09/18/[address] [place] [address] Vi Ballard MA 09/10/[address] [place] [address] Federico Chester MD Coronary artery disease, unspecified vessel or lesion type, unspecified whether angina present, unspecified whether nightmute or transplanted heart 08/28/[address] [place] [address] Malissa To MA Palpitations; Coronary artery disease, unspecified vessel or lesion type, unspecified whether angina present, unspecified whether nightmute or transplanted heart; Chest pain, unspecified type; Gastroesophageal reflux disease without esophagitis 08/26/2024 Refill [facility] [address] [place] [address] Federico Chester MD Coronary artery disease, unspecified vessel or lesion type, unspecified whether angina present, unspecified whether nightmute or transplanted heart; Chest pain, unspecified type; [...] Recorded Patient Health Questionnaire-2 Score 0 04/11/2024 [place] Safety & Environment Answer Date Rec orded [...] place to sleep or slept in a detention (including now)? No 01/25/2023 Hunger Vital Sign [...] Sign Reading Time Taken Comments Blood Pressure 113/70 10/17/2024 2:36 PM EDT Pulse 69 10/17/2024 2:36 PM EDT Temperature 36.7 C (98 F) 04/11/2024 10:47 AM EST Respiratory Rate 16 10/17/2024 2:36 PM EDT Oxygen Saturation 93% 10/17/2024 2:36 PM EDT Inhaled Oxygen Concentration - - Weight 93 kg (205 lb) 10/17/2024 2:36 PM EDT Height 180.3 cm (5' 11 ) 10/17/2024 2:36 PM EDT Body Mass Index 28.59 10/17/2024 2:36 PM EDT Plan of Treatment Upcoming Encounters Date Type Department Care Team (Late st Contact Info) Description 04/24/2025 1:30 PM EST Follow-Up [facility] Transplant [address] [place] [address] Sean Aden, ARON [address], [place] [id number] Health Maintenance Due Date Last Done Comments [...] 12/27/1979 Adult Tetanus 1982 COVID-19 Vaccine ( season) 2023 03/30/2023, 12/30/2021, 12/30/2021, Additional history [...] this topic Medical Devices Implanted Type Area Automatic Drilling Machine Operator Device Identifier Shelf Expiration Date Model / Serial / Lot Stent Implanted:Qty: 7 Bilateral: Heart Pacer/Aicd Combo Bilateral: Heart Procedures Procedure Name Priority Date/Time Associated Diagnosis Comments CARDIAC DEVICE CHECK - IN CLINIC - ICD DUAL CHAMBER W/ PROG Routine 10/25/2024 4:36 PM EDT Encounter for checking and testing of cardiac pacemaker pulse generator (battery) POCT URINE DIP AUTO W/O MICRO Routine 10/17/2024 2:50 PM EDT Renal transplant recipient ECG 12 LEAD UNIT PERFORMED Routine 09/18/2024 10:05 AM EDT Palpitations HEMOGLOBIN A1C Routine 05/18/2023 9:16 AM EST Impaired fasting glucose from Last 3 Months or Most Recently Relevant to Health Maintenance Results * CARDIAC DEVICE CHECK - IN CLINIC - ICD DUAL CHAMBER W/ PROG (10/25/2024 4:36 PM EDT) Anatomical Region Laterality Modality Other Narrative 11/05/2024 9:27 AM EDT By using the attestations below, the signing clinician agrees that I have read and verify that the documentation has been personally reviewed by me and ensure that the documentation accurately reflects the encounter. Routine EP device follow up as per schedule. Please see attached note us Jem Soto MD CV IMPLANTABLE CARDIAC DEVICE IA OCEDURES Final Result * POCT rack urine (10/17/2024 2:50 PM EDT) Bilirubin Urine 0 mg/dL Blood, UA 0 Glucose, UA +3 Leukocytes, UA Negative Nitrite, UA Negative pH, UA 5.5 5.0 - 8.0 Protein, UA Negative Spec Grav, UA 1.015 Urobilinogen, UA 0.2 Ketones, UA Automated Negative Color, UA Yellow Clarity, UA Clear Lot Number [id number] Expiration Date 06/14/25 10/17/2024 2:50 PM EDT Sean Aden CNP POINT OF CARE TEST ENTER/EDIT ORDERABLES Final Result * ECG 12 lead unit performed (09/18/2024 10:05 AM EDT) Federico Chester MD ECG ORDERABLES Final Result * (ABNORMAL) Hemoglobin A1c (05/18/2023 9:16 AM EST) Hemoglobin A1C 6.4(H) 4.0 - 6.0 % 05/18/2023 1:20 PM EST [facility] Estimated Average Glucose 137 mg/dL 05/18/2023 1:20 PM EST [facility] Blood Venous blood specimen / Unknown Venipuncture / Unknown 05/18/2023 9:16 AM EST 05/18/2023 9:16 AM EST us Obi Cyndie [facility] BLOOD ORDERABLES Final Resul t [facility] [address] [place] [address] from Last 3 Months or Most Recently Relevant to Health Maintenance Insurance [employer] [employer] MEDICARE ADVANTAGE Member Subscriber Plan / Payer (Ef fective 2023-Present) Name:Vishal To Relation to Subscriber:Self Name:Vishal To Payer ID:[id number] (NAIC) Type:Not on file Address: [address] [employer]AGE Member Subscriber Plan / Payer (Ef fective 2023-Present) Name:Vishal To Relation to Subscriber:Self Name:Vishal To Payer ID:[id number] (NAIC) Type:Not on file Address: [place] [id number] Advance Directives * Full Code (Latest Code Status on File) Date Activated Date Inactivated Comments 01/25/2023 3:23 AM 01/25/2023 9:56 PM Care Teams Pipefitter Relationship Specialty Start Date End Date Rosa M Del Toro MD PCP - General 01/25/22 Bobby Agee MD [address] [place] [address] [address] [place] [address] Consulting Physician Urology 01/25/22 Petey Redding CNP [address] [place] [address] [place] [address] Nurse Practitioner Urology 09/27/22 Guido Campos MD [address] [place] [address] [address] [place] [address] Consulting Physician Transplant Surgery 12/22/22
--- OUTSIDE RECORDS SUMMARY | 2024-11-15 08:42 | XMS_ITS | Continuity of Care Document ---
Author Organization [facility] Address [address] [place] [address] Phone [phone]
--- OUTSIDE RECORDS SUMMARY | 2024-11-15 08:42 | XMS_ITS ---
Author Organization [facility] Address [address] [facility] [place] [address] Care Team Providers Care Starter Mechanic Name Role Phone Rosa M Del Toro MD Primary Care Provider Rosa M Brownlee RN Unavailable [phone] Chronic Care Management (CCM) Status:Enrolled (Active) Start date:03/01/2023 Enrollment date:03/01/2023 Enrollment reason:Referred by provider Overview Addresses patients in need of care management services. 03/01/23, 10:08 AM - Rosa M Browlnee RN- Patient gives verbal consent to be enrolled in CCM Program and understands there could be a bill for this service. Case Team Name Relationship Phone Rosa M Brownlee RN(Responsible Staff) Registered Nurse [phone] Continued Care and Services Coordination
--- OUTSIDE RECORDS SUMMARY | 2024-11-15 08:42 | XMS_ITS | Encounter Summary ---
Author Organization [facility] Address [address] [place] [address] Care Team Providers Care Internal Controls Manager Name Role Phone Rosa M Del Toro MD Primary Care Provider [phone] Rosa M Brownlee RN Unavailable [phone] Encounter Details Date Type Department Care Team (Late st Contact Info) Description 11/12/2024 Patient Outreach [facility] POPULATION [facility] [address] [place] [id number] Rosa M Brownlee, RN [address] [place] [address] Social History Tobacco Use Types Packs/Day Years [...] often do you attend chur ch or buddhist services? 1 to 4 times per year 11/01/2022 Do you belong to any clubs o r organizations such as catholic groups, unions, fraternal or athletic groups, or [...] Recorded Patient Health Questionnaire-2 Score 0 10/03/2024 [facility] Answer Date [...] Notes * Rosa M Brownlee RN - 11/12/2024 1:29 PM EDT <November 12, 2024, 13:29 - oRsa M Brownlee RN> Call to home, spoke with pt. He is friendly and talkative. He was out by the pool with his granddaughter and and could only tolerate the heat for about 10 minutes. He reported can only stand the heat in small doses. Before he got sick it did not bother him. He reported that he has not had a bad dizzy spell for a while but he continues to have small ones -1 to 3 times a week. Reported that if he feels a small one coming on, he stops what he is doing andit goes away. He feels it is related to his BP. He does check BP occas and has gotten readings or 103/50 and 120/xx. He is currently taking lisinopril 5mg daily. He saw surg physician asst and they did a work up and told him that it was not his heart. He saw nephro recently too and are aware. He has to go back to [facility] a spot on his head. , Offered appt and he declined at this time. Advised will follow up with provider. He vu. He denies needs at this time. Enc to call for concerns. documented in this encounter Plan of Treatment Upcoming Encounters Date Type Department Care Team (Late st Contact Info) Description 01/03/2025 8:30 AM EDT Office Visit [facility] [address] [place] [phone] Avelina Fernandez MD [address] [place] [address] documented as of this encounter Visit Diagnoses Diagnosis Essential hypertension- Primary Unspecified essential hypertension Polycystic kidney disease, autosomal dominant Congenital polycystic kidney, autosomal dominant documented in this encounter Additional Health Concerns Assessment Noted Time PHQ-9 Depression Total Score: 0 10/04/19 25 11:32 AM EDT documented as of this encounter Care Teams Internal Controls Manager Relationship Specialty Start Date End Date Rosa M Del Toro MD [address] [place], [place] [id number] PCP - General Family Medicine 10/25/22 Rosa M Brownlee RN [address] [place] [address] Registered Nurse Family Medicine 03/01/23 documented as of this encounter
--- OUTSIDE RECORDS SUMMARY | 2024-11-15 08:42 | XMS_ITS | Clinical Summary ---
Author Organization [facility] Healthcare Address [address] [place] [address] Care Team Providers Care Shroudman Name Role Phone Rosa M Gonzales MD Primary Care Provider [phone] Rosa M Platt RN Unavailable [phone] Allergies No known active allergies Medications ranolazine (Ranexa) 500 MG 12 hr tablet Take 500 mg by mouth in the morning and 500 mg before bedtime. Do not crush, chew, or split. . Active aspirin 81 MG EC tablet Take 81 mg by mouth Daily Active clopidogrel (Plavix) 75 MG tablet Take by mouth Daily Active lisinopril 5 MG tablet Take by mouth Daily Active empagliflozin (Jardiance) 10 MG Take 10 mg by mouth in the morning. 07/06/19 23 Active esomeprazole (NexIUM) [address] capsule Take 1 capsule by mouth Daily Active nitroglycerin (Nitrostat) 0.4 MG SL tabletIndications: Coronary artery disease involving [place] coronary artery of [place] heart with unstable angina pectoris (HCC) Place 1 tablet (0.4 mg) under the tongue every 5 (five) minutes if needed for chest pain. 90 tablet 12 11/09/19 23 Active metoprolol succinate XL (Toprol-XL) 200 MG 24 hr tablet Take 100 mg by mouth Daily 11/22/19 23 Active atorvastatin (Lipitor) 80 MG tablet Take 80 mg by mouth Daily 11/22/19 23 Active albuterol HFA 90 mcg/act inhalerIndications :Simple chronic bronchitis (HCC) Inhale 2 puffs every 4 (four) hours if needed for shortness of breath 18 g 06/27/19 24 Active Additional Information Patient not taking.Reported on 11/04/2024 isosorbide mononitrate ER (Imdur) 60 MG 24 hr tablet 07/19/19 24 Active mycophenolate (Myfortic) 180 MG EC tabletIndications: Aftercare following organ transplant Take 1 tablet (180 mg) by mouth in the morning and 1 tablet (180 mg) before bedtime. 180 tablet 03/21/20 24 025 Active tacrolimus (Prograf) 0.5 MG capsuleIndications :History of kidney transplant (HCC) Take 1 capsule (0.5 mg) by mouth in the morning and 1 capsule (0.5 mg) before bedtime. 180 capsule 05/20/19 25 026 Active magnesium oxide (Mag-Ox) 400 (240 Mg) MG tabletIndications: History of kidney transplant (HCC) TAKE 1 TABLET BY MOUTH IN THE MORNING then TAKE 1 TABLET BY MOUTH IN THE EVENING then TAKE 1 TABLET BY MOUTH BEFORE bedtime 270 tablet 09/11/19 25 Active amoxicillin (Amoxil) 500 MG capsule TAKE 4 CAPSULES BY MOUTH ONE HOUR PRIOR TO DENTAL APPOINTMENT. 07/17/19 25 Active metoprolol succinate XL (Toprol-XL) 100 MG 24 hr tablet 09/11/19 25 Active Blood Glucose Monitoring Suppl (Blood Glucose Monitor System) w/Device kitIndications:Typ e 2 diabetes mellitus with diabetic polyneuropathy (HCC) Use daily or as directed for monitoring of diabetes. Also dispense test strips and lancets of insurance choice. 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 Coronary artery disease invo lving [place] coronary artery of [place] heart with unstable angina pectoris 11/08/2022 Overview [...] Encounters Date Type Department Care Team Description 11/12/2024 Patient Outreach [facility] [address] [place] [address] Rosa M Platt RN 11/07/2024 Results Follow-Up [facility] Dermatology [address] [place] [address] Kimberlyn Fishman MD 11/04/2024 9:45 AM EDT Office Visit [facility] Dermatology [address] [place] [address] Kimberlyn Fishman MD Seborrheic keratosis (Primary Dx); Lentigines; History of basal cell carcinoma; Actinic keratosis; Neoplasm of unspecified behavior of bone, soft tissue, and skin; Seborrheic keratosis, inflamed 11/04/2024 Bamboo flowsheet [facility] Dermatology [address] [place] [address] Kimberlyn Fishman MD 11/04/2024 Travel 10/15/2024 Clinisync Result Encounter [facility] External Department Unsolicited Provider, Generic External Data 10/14/2024 Clinisync Result Encounter [facility] External Department Unsolicited Provider, Generic External Data 10/03/2024 11:30 AM EDT Office Visit [facility] Medicine [address] [place] [address] Rosa M Gonzales MD Wellness examination (Primary Dx); Simple chronic bronchitis (HCC); Post-COVID chronic dyspnea; Chronic systolic congestive heart failure (HCC); Essential hypertension ; End-stage renal disease (HCC); PKD (polycystic kidney disease); Stage 3a chronic kidney disease (CMS-HCC); History of kidney transplant (HCC); Dizziness; Type 2 diabetes mellitus with diabetic cataract (HCC); Type 2 diabetes mellitus with diabetic polyneuropathy (HCC); Cardiomyopathy, unspecified (HCC) 10/03/2024 Telephone [facility] [address] [facility] [place] [address] Rosa M Gonzales MD 10/03/2024 Bamboo flowsheet [facility] [address] [facility] [place] [address] Rosa M Gonzales MD 10/03/2024 Travel 10/02/2024 [facility] [place] [address] Rosa M Platt RN 09/10/2024 Refill [facility] [address] [facility] [place] [address] Rosa M Gonzales MD History of kidney transplant (HCC) 09/10/2024 [...] How often do you attend chur or zoroastrianism services? 1 to 4 times per year 11/01/2022 Do you belong to any clubs o r organizations such as jehovah's witness groups, unions, fraternal or athletic groups, or [...] Recorded Patient Health Questionnaire-2 Score 0 10/03/2024 [facility] - [...] Dermatology [address] [place] [address] Avelina Fernandez MD [address] [place] [address] Health Maintenance Due Date Last Done Comments CT Colonography 1960 FIT-DNA 1960 FIT 1960 FOBT 1960 Sigmoidoscopy 1960 Diabetes: Urine Protein Screening 12/27/1979 Diabetes: Hemoglobin A1C 06/05/2024 024, 05/18/2023, 05/18/2023, Additional history exists Diabetes: Retinopathy Screening 10/25/2024 10/25/2022, 10/25/2022, 10/25/2022, Additional history exists Influenza Vaccine (#1) 2024 , 01/13/2023, 01/13/2022, Additional history exists Medicare Annual Wellness (AWV) 10/03/2025 0 10/03/2024, 07/27/2023, 11/04/2021 Colonoscopy 01/25/2034 01/26/2024, 12/17, 02/01/2013 Colorectal Cancer Screening 01/25/2034 Procedures Procedure Name Priority Date/Time Associated Diagnosis [...] behavior of bone, soft tissue, and skin CA ECHO DOPPLER COMPLETE 025 2:32 PM EDT TACROLIMUS (FK506), BLOOD Routine 2024 8:35 AM EDT ALL CBC WITH AUTO DIFF Routine 8:35 AM EDT METRO BILIRUBIN, DIRECT Routine 10/15/19 8:35 AM EDT ALL MAGNESIUM Routine 10/14/2024 8:35 AM EDT ALL PHOSPHOROUS Routine 10/14/2024 8:35 AM EDT ALL URIC ACID Routine 10/14/2024 8:35 AM EDT [facility] CMP (CMP) (FOR REMOTE [facility] USE) Routine 10/14/2024 8:35 AM EDT [facility] TESTOSTERONE FREE/TOT EQUILIB Routine 09/10/2024 8:49 AM EDT TACROLIMUS (FK506), BLOOD Routine 2024 8:49 AM EDT METRO SEX BINDING HORMONE (SHBG), TESTOSTERONE, FREE AND BIOAVAILABLE Routine 09/10/2024 8:49 AM EDT BKV QUANT PCR Routine 09/10/2024 8:49 AM EDT MLR HEMOGLOBIN A1C Routine 09/10/2024 8: 49 AM EDT ALL LIPID PROFILE (FASTING) Routine 09/10/2024 8:49 AM EDT METRO BILIRUBIN, DIRECT Routine 09/11/19 8:49 AM EDT ALL MAGNESIUM Routine 09/10/2024 8:49 AM EDT ALL PHOSPHOROUS Routine 09/10/2024 8:49 AM EDT ALL URIC ACID Routine 09/10/2024 8:49 AM EDT [facility] CMP (CMP) (FOR REMOTE [facility] USE) Routine 09/10/2024 8:49 AM EDT ALL CBC WITH AUTO DIFF Routine 8:49 AM EDT HEMOGLOBIN A1C Routine 09/10/2024 HEMOGLOBIN A1C Routine 03/05/2024 Elevated fasting glucose HM COLONOSCOPY Routine 01/26/2024 3:11 PM EDT COLOR FUNDUS PHOTOGRAPHY - OU - BOTH EYES Routine 05/18/2021 12:00 PM EST from Last 3 Months or Most Recently Relevant to Health Maintenance Results * Lesion biopsy (11/04/2024 9:49 AM EDT) Azucena Perico TyeshaMERCEDES - 11/04/2024 9:49 AM EDT Type of [...] taken Amount of lidocaine used: 1.0 cc Kimberlyn Fishman MD DERM PROCEDURE ORDERABLES Fin [...] taken Amount of lidocaine used: 1.0 cc Kimberlyn Fishman MD DERM PROCEDURE ORDERABLES Fin al Result * Cryotherapy, skin lesion (11/04/2024 9:48 AM EDT) Kimberlyn Fishman MD DERM PROCEDURE ORDERABLES Fin al Result * Lesion biopsy (11/04/2024 9:47 AM EDT) Tyesha Corrigan MA - 11/04/2024 9:47 AM EDT Type [...] taken Amount of lidocaine used: 1.0 cc Kimberlyn Fishman MD DERM PROCEDURE ORDERABLES Fin al Result * Lesion biopsy (11/04/2024 9:46 AM EDT) Tyesha Corrigan MA - 11/04/2024 9:46 AM EDT Type [...] Photo taken Amount of lidocaine used: 1.0 Kimberlyn Fishman MD DERM PROCEDURE ORDERABLES Fin al Result * Cryotherapy, skin lesion (11/04/2024 9:45 AM EDT) Kimberlyn Fishman MD DERM PROCEDURE ORDERABLES Fin [...] Description Microscopic examination performed. [facility] CPT 36414*4 [facility] Skin (tissue) specimen (specimen) Topography [...] PATHOLOGY ORDERABLES Margo field Result [facility] * CA ECHO DOPPLER COMPLETE (10/15/2024 2:32 PM EDT) Anatomical Region Laterality Modality Other 10/15/2024 2:32 PM EDT Narrative 10/15/2024 2:33 [place] [address] Cardiology Report Signed Patient: VISHAL DUKE MR#: [id number] : 1960 Acct:[id number] Age/Sex: 63 / M ADM Date: 10/15/24 Loc: CARD Attending Dr: Federico Brown M.D. Ordering Physician: Federico Brown M.D. Date of Service: 10/15/24 Procedure(s): CA echo doppler complete Accession Number(s): [id number] cc: Federico Bronw M.D.; ROSA M GONZALES Patient Name: VISHAL DUKE MR#: [id number] : 1960 Exam Date: 10/15/2024 Ordering Doctor: DR FEDERICO BROWN M.D. ECHOCARDIOGRAM REPORT PROCEDURE: CA ECHO DOPPLER COMPLETE INDICATIONS: Ischemic cardiomyopathy, CABG, pacemaker, h/o kidney transplant (polycystic disease) COMPARISON: None. DESCRIPTION: COMPLETE ECHOCARDIOGRAM Real-time transthoracic echocardiography with 2D, M-mode, spectral and color flow Doppler performed. QUALITY: Technical quality was good. LEFT VENTRICLE: Normal chamber size. Mild proximal septal hypertrophy (sigmoid septum). Moderately reduced left ventricular systolic function. Mid and apical septal segments and the apex are akinetic, inferior wall is hypokinetic. Ejection fraction estimated to be around 40% left ventricle apex could not be well-visualized and cannot rule out thrombus. LV EF: 40% DIASTOLIC: Grade 1 left ventricular diastolic dysfunction ATRIAL SEPTUM: Visually appears intact. LEFT ATRIUM: Normal chamber size. RIGHT ATRIUM: Normal chamber size. RIGHT VENTRICLE: Normal chamber size. Right ventricle systolic function appears preserved. Pacer wire present in the right atrium and right ventricle. TRICUSPID VALVE: Normal mobility and thickness. No stenosis with trivial regurgitation. No evidence of pulmonary hypertension.RVSP 32 mmHg MITRAL VALVE: Normal mobility and thickness. No evidence of mitral valve stenosis. There is no mitral annular calcification. Mild to moderate mitral regurgitation. AORTIC VALVE: Normal trileaflet appearance. No visible sclerosis. Normal leaflet mobility. No evidence of aortic valve stenosis. Mild aortic regurgitation. AORTIC ROOT: Normal diameter and appearance. PULMONIC VALVE: Normal thickness and mobility. No stenosis. Trivial regurgitation. PERICARDIUM: No evidence of pericardial effusion. IVC: Collapes with inspirations. IVC is normal in size. PLEURA: CONCLUSION: Moderately reduced left ventricular systolic function with wall motion abnormalities as described above. Ejection fraction estimated to be around 40%. Left ventricle apex could not be well-visualized, cannot exclude left ventricular apical clot, recommend to repeat 2D study with Lumason Normal right ventricle size and systolic function Normal right-sided pressures, RVSP 32 mmHg Mild to moderate mitral regurgitation Mild aortic insufficiency Adult Echocardiography Procedure Report Left Ventricle LVEDD (3.7 - 5.6 cm): 5.20 cm LVESD (2.2 - 4.0 cm): 3.84 cm LVIVS thickness (0.6 - 1.2 cm): 1.43 cm LVPW thickness (0.5 - 1.0 cm): 0.99 cm e': 0.08 m/s E - e': 4.75 LVOT Max Gradient: 3.66 mm[Hg] LVOT Area (cm2): 0.96 m/s Peak Velocity (LVOT): 0.96 m/s Mean Velocity (LVOT): 0.67 m/s LVOT Diameter 2.42 cm Left Ventricular Ejection Fraction: Left Atrium LA Volume Index (2D A2C): 32.86 ml/m2 Left Atrium Systolic Dimension: 5.17 cm Mitral Valve MV E to A Ratio: 0.76 MV Max Gradient: MV Mean Gradient: Mitral Valve A-Wave Peak Velocity: 0.48 m/s Mitral Valve E-Wave Peak Velocity: 0.36 m/s Cardiovascular Orifice Area: Right Ventricle RV Internal Diastolic Dimension: Aorta AO Root Diam: 3.82 cm Ascending Ao Diam: Aortic Valve AoV Area (Peak [place]): 4.29 cm2, 4.29 cm2 AoV Area (VTI): 3.55 cm2, 3.55 cm2 Deceleration [place]: 0.90 m/s2 Pressure Half-Time: 1.03 s Peak Velocity(Antegrade Flow): 1.03 m/s Peak Gradient(Antegrade Flow): 4.25 mm[Hg] Mean Velocity(Antegrade Flow): 0.71 m/s Mean Gradient(Antegrade Flow): 2.32 mm[Hg] Velocity Time Integral: 24.19 cm Tricuspid Valve Peak Velocity (Regurgitant Flow): 1.90 m/s, 2.67 m/s Peak Velocity: Pulmonic Valve Mean Gradient: Mean Velocity: Peak Velocity: Peak Gradient: 2.02 mm[Hg], 2.39 mm[Hg] Right Atrium Right Atrium Systolic Pressure: 44.43 ml, 44.43 ml Dictated by: Rozina Loza MD on 10/15/2024 at 14:18 Approved by: Rozina Loza MD on 10/15/2024 at 14:32 Dictated By: Rozina Loza M.D. Signed By: 10/15/24 143 DD/ 31 TD/TT: Channel Machine Operator: Procedure Note Radiology, Radiologist, - 10/15/2024 [place] [address] Cardiology Report Signed Patient: VISHAL DUKE DMR#: [id number] : 1960cct:[id number] Age/Sex: 63 / MADM Date: 10/15/24 Loc: CARD Attending Dr: Federico Brown M.D. Ordering Physician: Federico Brown M.D. Date of Service: 10/15/24 Procedure(s): CA echo doppler complete Accession Number(s): [id number] cc: Federico Brown M.D.; ROSA M GONZALES Patient Name: VISHAL DUKE MR#: [id number] : 1960 Exam Date: 10/15/2024 Ordering Doctor: DR FEDERICO BROWN M.D. ECHOCARDIOGRAM REPORT PROCEDURE: CA ECHO DOPPLER COMPLETE INDICATIONS: Ischemic cardiomyopathy, CABG, pacemaker, h/o kidney transplant (polycystic disease) COMPARISON: None. DESCRIPTION: COMPLETE ECHOCARDIOGRAM Real-time transthoracic echocardiography with 2D, M-mode, spectral and color flow Dopplerperformed. QUALITY: Technical quality was good. LEFT VENTRICLE: Normal chamber size. Mild proximal septal hypertrophy (sigmoid septum). Moderately reduced left ventricular systolic function.Mid and apical septal segments and the apex are akinetic, inferior wall is hypokinetic. Ejection fraction estimated to be around 40% left ventricleapex could not be well-visualized and cannot rule out thrombus. LV EF: 40% DIASTOLIC: Grade 1 left ventricular diastolic dysfunction ATRIAL SEPTUM: Visually appears intact. LEFT ATRIUM: Normal chamber size. RIGHT ATRIUM: Normal chamber size. RIGHT VENTRICLE: Normal chamber size. Right ventricle systolicfunction appears preserved. Pacer wire present in the right atrium and right ventricle. TRICUSPID VALVE: Normal mobility and thickness. No stenosis withtrivial regurgitation. No evidence of pulmonary hypertension.RVSP 32 mmHg MITRAL VALVE: Normal mobility and thickness. No evidence of mitralvalve stenosis. There is no mitral annular calcification. Mild to moderatemitral regurgitation. AORTIC VALVE: Normal trileaflet appearance. No visible sclerosis.Normal leaflet mobility. No evidence of aortic valve stenosis. Mild aortic regurgitation. AORTIC ROOT: Normal diameter and appearance. PULMONIC VALVE: Normal thickness and mobility. No stenosis. Trivial regurgitation. PERICARDIUM: No evidence of pericardial effusion. IVC: Collapes with inspirations. IVC is normal in size. PLEURA: CONCLUSION: Moderately reduced left ventricular systolic function with wall motion abnormalities as described above. Ejection fraction estimated to bearound 40%. Left ventricle apex could not be well-visualized, cannot exclude left ventricular apical clot, recommend to repeat 2D study with Lumason Normal right ventricle size and systolic function Normal right-sided pressures, RVSP 32 mmHg Mild to moderate mitral regurgitation Mild aortic insufficiency Adult Echocardiography Procedure Report Left Ventricle LVEDD (3.7 - 5.6 cm): 5.20 cm LVESD (2.2 - 4.0 cm): 3.84 cm LVIVS thickness (0.6 - 1.2 cm): 1.43 cm LVPW thickness (0.5 - 1.0 cm): 0.99 cm e': 0.08 m/s E - e': 4.75 LVOT Max Gradient: 3.66 mm[Hg] LVOT Area (cm2): 0.96 m/s Peak Velocity (LVOT): 0.96 m/s Mean Velocity (LVOT): 0.67 m/s LVOT Diameter 2.42 cm Left Ventricular Ejection Fraction: Left Atrium LA Volume Index (2D A2C): 32.86 ml/m2 Left Atrium Systolic Dimension: 5.17 cm Mitral Valve MV E to A Ratio: 0.76 MV Max Gradient: MV Mean Gradient: Mitral Valve A-Wave Peak Velocity: 0.48 m/s Mitral Valve E-Wave Peak Velocity: 0.36 m/s Cardiovascular Orifice Area: Right Ventricle RV Internal Diastolic Dimension: Aorta AO Root Diam: 3.82 cm Ascending Ao Diam: Aortic Valve AoV Area (Peak [place]): 4.29 cm2, 4.29 cm2 AoV Area (VTI): 3.55 cm2, 3.55 cm2 Deceleration [place]: 0.90 m/s2 Pressure Half-Time: 1.03 s Peak Velocity(Antegrade Flow): 1.03 m/s Peak Gradient(Antegrade Flow): 4.25 mm[Hg] Mean Velocity(Antegrade Flow): 0.71 m/s Mean Gradient(Antegrade Flow): 2.32 mm[Hg] Velocity Time Integral: 24.19 cm Tricuspid Valve Peak Velocity (Regurgitant Flow): 1.90 m/s, 2.67 m/s Peak Velocity: Pulmonic Valve Mean Gradient: Mean Velocity: Peak Velocity: Peak Gradient: 2.02 mm[Hg], 2.39 mm[Hg] Right Atrium Right Atrium Systolic Pressure: 44.43 ml, 44.43 ml Dictated by: Rozina Loza MD on 10/15/2024 at 14:18 Approved by: Rozina Loza MD on 10/15/2024 at 14:32 Dictated By: Rozina Loza M.D. Signed By:10/15/24 1433 DD/ 143 TD/TT: Channel Machine Operator: Generic External Data Provider [facility] Final Result * TACROLIMUS (FK506), BLOOD (10/14/2024 8:35 AM EDT) Only the most recent of2 resultswithin the time period is included. [facility] TACROLIMUS (FK506), BLOOD 8.5 5.0 - 20.0 ng/mL [facility] Comment: This test was developed and its performance characteristics determined by [employer]. It has not been cleared or approved [...] ng/mL Performed by LC-MS/MS technology. Performed at: [address] [id number] Caramel Candy Maker Helper: Evan Orozco MD, Phone: [phone] 10/14/2024 8:35 AM EDT 10/14/2024 8:36 AM EDT Narrative [facility] - 10/16/2024 4:09 PM EDT Generic External Data Provider LAB BLOOD ORDERAB LES Final Result Performing Organization Address City/[facility]/ZIP Co de Phone Number [facility] * METRO BILIRUBIN, DIRECT (10/14/2024 8:35 AM EDT) Only the most recent of2 resultswithin the time period is included. BILIRUBIN DIRECT 0.1 0.0 - 0.2 mg/dL TBH 10/14/2024 8:35 AM EDT 10/14/2024 8:36 AM EDT Narrative [facility] - 10/14/2024 9:02 AM EDT Generic External Data Provider [facility] F inal Result Performing Organization Address City/[facility]/ZIP Co de Phone Number [facility] * (ABNORMAL) [facility] CMP (CMP) (FOR REMOTE [facility] USE) (10/14/2024 8:35 AM EDT) Only the most recent of2 [...] 0.70 - 1.30 mg/dL TBH TBH EGFR-AF FIJIAN >60 >=60 mL/min/1. 73m 2 TBH TBH EGFR-NON AF FIJIAN 56(L) >=60 mL/min/1. 73m 2 TBH BUN [...] CLINISYNC F inal Result Performing Organization Address [facility] de Phone Number [facility] * ALL URIC ACID (10/14/2024 8:35 AM EDT) Only the most recent of2 resultswithin the time period is included. URIC ACID 6.7 3.5 - 7.2 mg/dL TB 10/14/2024 8:35 AM EDT 10/14/2024 8:36 AM EDT Narrative [facility] - 10/14/2024 9:02 AM EDT Generic External Data Provider [facility] F inal Result Performing Organization Address City/State/[facility] Co de Phone Number [facility] * ALL PHOSPHOROUS (10/14/2024 8:35 AM EDT) Only the most recent of2 resultswithin the time period is included. PHOSPHORUS 3.4 2.6 - 4.7 mg/dL TBH 10/14/2024 8:35 AM EDT 10/14/2024 8:36 AM EDT Narrative [facility] - 10/14/2024 9:02 AM EDT Generic External Data Provider [facility]IN[facility] F inal Result Performing Organization Address City/[facility]/ZIP Co de Phone Number [facility] * (ABNORMAL) ALL MAGNESIUM (10/14/2024 8:35 AM EDT) Only the most recent of2 resultswithin the time period is included. Pathologist [facility] MAGNESIUM 1.7(L) 1.8 - 2.4 mg/dL TBH 10/14/2024 8:35 AM EDT 10/14/2024 8:36 AM EDT Narrative [facility] - 10/14/2024 9:02 AM EDT Generic External Data Provider CLIN[facility] F inal Result Performing Organization Address [facility] de Phone Number [facility] TB * (ABNORMAL) ALL CBC WITH AUTO DIFF (10/14/2024 8:35 AM EDT) Only the most recent of2 resultswithin the time period is included. [facility] TBH WBC 7.1 4.0 - 11.0 10 3/uL TBH TB RBC 5.25 4.70 - 6.10 10 6/uL TBH TB HGB 15.2 14.0 - 18.0 g/dL TB TB HCT 46.9 42.0 - 54.0 % TB TBH MCV 89.3 80.0 - 94.0 fL TBH TBH MCH 29.0 25.9 - 34.0 pg TBH TBH MCHC 32.4 29.9 - 35.2 g/dL TB TB RDW 14.6 11.0 - 15.0 % TBH TBH PLT 231 150 - 450 10 3/uL TBH TB MPV 10.9 9.5 - 13.5 fL TB NEUTROPHILS PERCENT AUTO 73.6 43.0 - 75.0 [...] 10:18 AM EDT Generic External Data Provider HELEN Yates inaemir Result [facility] * BKV QUANT PCR (09/10/2024 8:49 AM EDT) BKV DNA, QUANT PCR, PLASMA Negative Negative IU/mL TB Comment: No BK DNA detected. The linear range of the assay is 22 - 100,000,000 IU/mL. Performed at: [address] [id number] Caramel Candy Maker Helper: Evan Orozco MD, Phone: [phone] LOG10 BKV DNA,PLASMA TNP . TB 09/10/2024 8:49 AM EDT 09/10/2024 8:51 AM EDT Narrative [facility] - 09/11/2024 11:08 AM EDT us Generic External Data Provider LAB BLOOD ORDERAB LES Final Result Performing Organization Address [facility] Co de Phone Number [facility] * SRMCOH TESTOSTERONE FREE/TOT EQUILIB (09/10/2024 8:49 AM EDT) TESTOSTERONE 399 264 - 916 ng/dL TBH Comment: Adult male reference interval is based on a population of healthy nonobese males (BMI <30) between 19 and 39 years old. Mike et.al. JCEM 2017,102;2493-9399. PMID: [id number]. FREE TESTOSTERONE(DIRE CT) 8.9 6.6 - 18.1 pg/mL TBH Comment: Performed at: [facility] [address] [id number] Caramel Candy Maker Helper: Dayne Mckenzie PhD, Phone: [phone] Performed at: [facility] [address] [id number] Caramel Candy Maker Helper: Evan Orozco MD, Phone: [phone] 09/10/2024 8:49 AM EDT 09/10/2024 8:51 AM EDT Narrative [facility] - 09/13/2024 10:07 PM EDT us Generic External Data Provider HELEN F inal Result Performing Organization Address [facility] de Phone Number [facility] * (ABNORMAL) MLR HEMOGLOBIN A1C (09/10/2024 8:49 AM EDT) Pathologist [facility] GLYCOHEMOGLOBIN A1C 6.4(H) 4.5 - 6.2 % TB Comment: ADA RECOMMENDED LIMIT 4.0 - 6.0 ADA THERAPEUTIC TARGET < 7.0 ACTION SUGGESTED > 7.0 ESTIMATED AVERAGE GLUCOSE 137 mg/dL TB 09/10/2024 8:49 AM EDT 09/10/2024 8:51 AM EDT Narrative [facility]IN[facility] - 09/10/2024 11:23 AM EDT us Generic External Data Provider FAUSTINOISYNC F inal Result Performing Organization Address [facility]/ZIP Co de Phone Number [facility] * METRO SEX BINDING HORMONE (SHBG), TESTOSTERONE, FREE AND BIOAVAILABLE (09/10/2024 8:49 AM EDT) SEX HORM BINDING GLOB, SERUM 31.2 19.3 - 76.4 nmol/L TB Comment: Performed at: [address] [id number] Caramel Candy Maker Helper: Dayne Mckenzie PhD, Phone: [phone] 09/10/2024 8:49 AM EDT 09/10/2024 8:51 AM EDT Narrative CLIN[facility]NC - 09/13/2024 10:07 PM EDT Generic External Data Provider HELEN F sherita Result Performing Organization Address City/[facility]/ZIP Co de Phone Number [facility] * ALL LIPID PROFILE (FASTING) (09/10/2024 8:49 AM EDT) TRIGLYCERIDES 149 <=150 mg/dL TBH CHOLESTEROL 110 <=200 mg/dL TB HDL CHOLESTEROL 44 40 - 60 mg/dL TB Comment: > or =60 mg/dl - LOW CARDIOVASCULAR RISK <40 mg/dl - HIGH CARDIOVASCULAR RISK LDL CHOLESTEROL CALCULATED 36.2 mg/dL [facility] Comment: <100 mg/dl OPTIMAL 100-129 mg/dl NEAR OR ABOVE OPTIMAL 130-159 mg/dl BORDERLINE HIGH 160-189 mg/dl HIGH >190 mg/dl VERY HIGH VLDL CHOLESTEROL 29.8 mg/dL TB CHOL HDL RATIO 2.5 TB Comment: 3.3 - 4.4 LOW RISK 4.4 - 7.1 AVERAGE RISK 7.1 - 11.0 MODERATE RISK >11.0 HIGH RISK 09/10/2024 8:49 AM EDT 09/10/2024 8:51 AM EDT Narrative FAUSTINOISYNC - 09/10/2024 9:18 AM EDT Generic External Data Provider SAURABHNC F inal Result [facility] * (ABNORMAL) HEMOGLOBIN A1C (09/10/2024) Blood 09/10/2024 Rosa M Gonzales MD LAB BLOOD ORDERABLES Final Re sult * Hemoglobin A1c (03/05/2024) HEMOGLOBIN A1C 6.4 [facility] Blood Venous blood specimen / Unknown 03/05/2024 Rosa M Gonzales MD LAB BLOOD ORDERABLES Final Re sult [facility] * Hm Colonoscopy (01/26/2024 3:11 PM EDT) Anatomical Region Laterality Modality Other Noms Provider Unallocated MD HEALTH MAINTENANCE Final Result * Color Fundus Photography - OU - Both Eyes (05/18/2021 12:00 PM EST) Anatomical Region Laterality Modality Head Fundus Photograp hy 05/18/2021 12:0 0 PM EST Narrative 05/18/2021 12:00 PM EST PERFORMED AT [facility] LOCATION:[id number] [facility] Procedure Note CONVERSION, GENERIC - 08/31/2022 PERFORMED AT [facility] LOCATION:[id number] [facility] Rosa M Gonzales MD OPHTH PHOTOGRAPHY Final Resul t from Last 3 Months or Most Recently Relevant to Health Maintenance Insurance [facility] MEDICARE ADVANTAGE [employer] Care Teams Shroudman Relationship Specialty Start Date End Date Rosa M Gonzales MD [address] [place] [address] PCP - General Family Medicine 10/25/22 Rosa M Platt, TATO [address] [place] [address] Registered Nurse Family Medicine 03/01/23
--- OUTSIDE RECORDS SUMMARY | 2024-11-15 08:42 | XMS_ITS | Encounter Summary ---
Author Organization [facility] Address [address] [place] [address] Care Team Providers Care Remote Control Mirror Installer Name Role Phone Rosa M Del Toro MD Primary Care Provider [phone] Rosa M Platt RN Unavailable [phone] Encounter Details Date Type Department Care Team (Late st Contact Info) Description 11/04/2024 Bamboo flowsheet WILLARDMarcelo [facility] [address] [facility] [address] [place] [address] Kimberlyn Fishman MD [address] [facility] [address] [place] [address] Social History Tobacco Use Types Packs/Day Years [...] How often do you attend chur or episcopalian services? 1 to 4 times per year [...] Recorded Patient Health Questionnaire-2 Score 0 10/03/2024 [facility] of Occupat ionri Health - Occupational Stress Questionnaire Answer Date [...] Office Visit [facility] [address] [address] [place] [phone] Avelina Fernandez MD [address] [facility] [address] [place] [address] documented as of this encounter Visit Diagnoses Not on filedocumented in this encounter Additional Health Concerns Assessment Noted Time PHQ-9 Depression Total Score: 0 10/04/19 25 11:32 AM EDT documented as of this encounter Care Teams Remote Control Mirror Installer Relationship Specialty Start Date End Date Rosa M Del Toro MD [address] [facility] [place] [address] PCP - General Family Medicine 10/25/22 Rosa M Platt RN [address] [place] [address] Registered Nurse Family Medicine 03/01/23 documented as of this encounter
--- OUTSIDE RECORDS SUMMARY | 2024-11-15 08:43 | XMS_ITS | Encounter Summary ---
Author Organization [facility] Healthcare Address [address] [facility] [place] [address] Care Team Providers Care Auxiliary Powerplant Operator Name Role Phone Rosa M Del Toro MD Unavailable [phone] Rosa M Del Toro MD Primary Care Provider [phone] Rosa M Platt RN Unavailable [phone] Rosa M Del Toro MD Unavailable Rosa M Del Toro MD Unavailable [phone] Reason for Visit * Reason Comments Med Refill Encounter Details Date Type Department Care Team (Late st Contact Info) Description 12/21/2022 Refill [facility] Family Medicine [address] [place] [address] Rosa M Del Toro MD [address] [place] [address] Kidney transplant status (HCC) Social History Tobacco [...] How often do you attend chur or latter day services? 1 to 4 times per year 11/01/2022 Do you belong to any clubs o r organizations such as hoahaoism groups, unions, fraternal or athletic groups, or [...] Recorded Patient Health Questionnaire-2 Score 0 11/08/2022 [facility] of Occupat ional Health - Occupational Stress [...] Description 01/03/2025 8:30 AM EDT Office Visit [facility] [address] [place] [phone] Avelina Fernandez MD [address] [place] [address] documented as of this encounter Visit Diagnoses Diagnosis Kidney transplant status (HCC) documented in this encounter Additional Health Concerns Assessment Noted Time PHQ-9 Depression Total Score: 0 11/09/19 9:00 AM EDT documented as of this encounter Care Teams Auxiliary Powerplant Operator Relationship Specialty Start Date End Date Rosa M Del Toro MD [address] [facility] [place] [address] PCP - ACO Reach 09/08/22 06/15/23 Rosa M Del Toro MD [address] [facility] [place] [address] PCP - General Family Medicine 10/25/22 Rosa M Del Toro MD [address] [facility] [place] [address] PCP - ACO Reach 08/16/23 05/23/24 Rosa M Del Toro MD [address] [facility] [place] [address] PCP - ACO Reach 05/31/24 07/18/24 Rosa M Platt RN [address] [facility] [place] [address] Registered Nurse Family Medicine 03/01/23 documented as of this encounter
--- OUTSIDE RECORDS SUMMARY | 2024-11-15 08:43 | XMS_ITS | Encounter Summary ---
Author Organization [facility] Healthcare Address [address] [facility] [place] [address] Care Team Providers Care Band Sewer Name Role Phone Rosa M Del Toro MD Unavailable [phone] Rosa M Del Toro MD Primary Care Provider [phone] Rosa M Platt RN Unavailable [phone] Rosa M Del Toro MD Unavailable [phone] Rosa M Del Toro MD Unavailable [phone] Reason for Visit * Reason Comments Med Refill Encounter Details Date Type Department Care Team (Late st Contact Info) Description 11/21/2022 Refill [facility] Family Medicine [address] [place] [address] Rosa M Del Toro MD [address] [place] [address] History of kidney transplant (HCC) [...] How often do you attend chur or holiness services? 1 to 4 times per year [...] Recorded Patient Health Questionnaire-2 Score 0 11/08/2022 [facility] of Occupat ional Health - Occupational Stress [...] Dermatology [address] [place] [address] Avelina Fernandez MD [address] [place] [address] documented as of this encounter Visit Diagnoses Diagnosis History of kidney transplant (HCC) Kidney replaced by transplant documented in this encounter Additional Health Concerns Assessment Noted Time PHQ-9 Depression Total Score: 0 11/09/19 9:00 AM EDT documented as of this encounter Care Teams Band Sewer Relationship Specialty Start Date End Date Rosa M Del Toro MD [address] [place] [address] PCP - ACO Reach 09/08/22 06/15/23 Rosa M Del Toro MD [address] [place] [address] PCP - General Family Medicine 10/25/22 Rosa M Del Toro MD [address] [facility] [place] [address] PCP - ACO Reach 08/16/23 05/23/24 Rosa M Del Toro MD [address] [facility] [place] [address] PCP - ACO Reach 05/31/24 07/18/24 Rosa M Platt, TATO [address] [place] [address] Registered Nurse Family Medicine 03/01/23 documented as of this encounter
--- OUTSIDE RECORDS SUMMARY | 2024-11-15 08:43 | XMS_ITS | Encounter Summary ---
Author Organization [facility] Address [address] [facility] [place] [address] Care Team Providers Care Volumetric Weigher Name Role Phone Rosa M Del Toro MD Unavailable Rosa M Del Toro MD Primary Care Provider Rosa M Platt RN Unavailable [phone] Rosa M Del Toro MD Unavailable Rosa M Del Toro MD Unavailable [phone] Encounter Details Date Type Department Care Team (Late st Contact Info) Description 10/25/2022 Abstract [facility] [address] [facility] [address] [place] [address] Kimberlyn Fishman MD [address] [facility] [address] [place] [address] Social History Tobacco Use Types Packs/Day Years [...] [address] [place] [address] Avelina Fernandez MD [address] [place] [address] documented as of this encounter Visit Diagnoses Not on filedocumented in this encounter Care Teams Volumetric Weigher Relationship Specialty Start Date End Date Rosa M Del Toro MD [address] [facility] [place] [address] PCP - ACO Reach 09/08/22 06/15/23 Rosa M Del Toro MD [address] [place] [address] PCP - General Family Medicine 10/25/22 Rosa M Del Toro MD [address] [place] [address] PCP - ACO Reach 08/16/23 05/23/24 Rosa M Del Toro MD [address] [facility] [place] [address] PCP - ACO Reach 05/31/24 07/18/24 Rosa M Platt RN [address] [place] [address] Registered Nurse Family Medicine 03/01/23 documented as of this encounter
[2024-11-15 09:26] LABS: Hematocrit 47.4 % (42.0-54.0); Hemoglobin 15.4 g/dL (14.0-18.0); Immature Granulocytes Abs Auto 0.02 10^3/uL (0.00-0.03); Immature Granulocytes Pct Auto 0.3 % (0.0-0.5); Lymphocytes Absolute Auto 1.1 10^3/uL (1.2-3.8); Mean Corpuscular HGB Conc 32.5 g/dL (29.9-35.2); Mean Corpuscular Hemoglobin 28.7 pg (25.9-34.0); Mean Corpuscular Volume 88.4 fL (80.0-94.0); Platelet Count 202 10^3/uL (150-450); Red Blood Count 5.36 10^6/uL (4.70-6.10); White Blood Count 6.4 10^3/uL (4.0-11.0)
[2024-11-15 09:31] LABS: Alanine Aminotransferase 40 U/L (16-63); Albumin Globulin Ratio 1.2; Albumin Level 3.8 g/dL (3.4-5.0); Alkaline Phosphatase 106 U/L (46-116); Anion Gap 10.9; Aspartate Amino Transferase 22 U/L (15-37); Blood Urea Nitrogen 18.0 mg/dL (7.0-18.0); Calcium 9.2 mg/dL (8.5-10.1); Carbon Dioxide 30.8 mmol/L (21.0-32.0); Chloride 104 mmol/L (98-107); Estimated GFR (African America >60 (>=60 mL/min/1.73m^2); Estimated GFR (Non-African Ame 58 (>=60 mL/min/1.73m^2); Globulin 3.2 g/dL; Glucose 136 mg/dL (74-106); Magnesium 1.6 mg/dL (1.8-2.4); Potassium 4.7 mmol/L (3.5-5.1); Sodium 141 mmol/L (136-145); Total Protein 7.0 g/dL (6.4-8.2); Uric Acid 6.1 mg/dL (3.5-7.2)
[2024-11-19 14:08] LABS: Tacrolimus (FK506), Blood 6.7 ng/mL (5.0-20.0)
== END 2024-11-15 08:38 | disposition home or self-care (01) ==
LOC: LAB 08:39
PROVIDERS: PCP Family Medicine; Visit Provider Nurse Practitioner Family
DX: R73.01 Impaired fasting glucose (principal); Z94.0 Kidney transplant status
CPT/HCPCS: 36415; 80053; 80197; 82248; 83735; 84100; 84550; 85025

== ENCOUNTER 2024-12-17 08:33 | Outpatient (OUT) | payer MEDICARE, SELFPAY ==
--- OUTSIDE RECORDS SUMMARY | 2024-12-03 14:00 | XMS_ITS | Encounter Summary ---
Author Organization [facility] Healthcare Address [address] [facility] [place] [address] Care Team Providers Care Snuff Container Inspector Name Role Phone Rosa M Del Toro MD Primary Care Provider Rosa M Platt RN Unavailable [phone] Reason for Visit * Reason Comments Dizziness Encounter Details Date Type Department Care Team (Late Contact Info) Description 12/03/2024 2:00 PM EDT Office Visit [facility] Medicine [address] [place] [phone] Rosa M Del Toro MD [address] [place], [place] [phone] Dizziness (Primary Dx); Orthostatic hypotension; Gastroesophageal reflux disease without esophagitis Social History Tobacco Use Types Packs/Day Years [...] How often do you attend chur or mu-ism services? 1 to 4 times per year 11/01/2022 Do you belong to any clubs o r organizations such as faith groups, unions, fraternal or athletic groups, or [...] Patient Health Questionnaire-2 Score 0 10/03/2024 [facility] of Occupat ional Health - Occupational Stress [...] Sign Reading Time Taken Comments Blood Pressure 122/70 12/03/2024 1:53 PM EDT laying down- 132/76 P 67, Sitting 110/70 P 64, Standing 104/72 P 76 Pulse 65 12/03/2024 1:53 PM EDT Temperature - - Respiratory Rate - - Oxygen Saturation 94% 12/03/2024 1:5 3 PM EDT Inhaled Oxygen Concentration - - Weight 93.7 kg (206 lb 9.6 oz) 12/03/2024 1:53 PM EDT Height 180.3 cm (5' 11 ) 12/03/2024 1:5 3 PM EDT Body Mass Index 28.81 12/03/2024 1:53 PM EDT documented in this encounter Progress Notes * Rosa M Del Toro MD - 12/03/2024 2:00 PM EDTAssociated Problem(s): Gastroesophageal reflux disease The nitroglycerin may be easing some esophageal spasm when he takes it. Does not seem to be cardiacissues. Dr Santiago is comfortable with his use of NTG. * Rosa M Del Toro MD - 12/03/2024 2:00 PM EDT Subjective ?Quick Links Last Note in Specialty Snapshot Edit RFV/CC Edit Screenings Current Meds Patient ID: Vishal To is a 63 y.o. male who presents for Dizziness. HPI History of Present Illness The patient presents for dizziness, GERD, and diabetes. He reports experiencing episodes of lightheadedness, which he describes as sudden and transient, lasting approximately 10 to 15 seconds. These episodes can occur multiple times in a day or just once,without any apparent trigger. He maintains good hydration throughout the day and does not believe dehydration is a contributing factor. He also reports no vertigo-like symptoms such as room spinning.He has been monitoring his blood pressure at home, which has remained within normal limits. Yesterday afternoon, he experienced a dizzy spell, during which his blood pressure was 116/64 and his bloodsugar was 152. He has not had a severe dizzy spell in the past month. His blood sugar levels have ranged from 116 to 184, with a typical range of 140 to 160. He monitorshis A1c levels every three months, with the most recent reading being 6.4. He is scheduled for an eye examination on 12/05/2024. He has been experiencing episodes of shortness of breath, which he attributes to his pacemaker. These episodes are often accompanied by a cough that subsides once his breathing normalizes. He reportsno chest tightness. He uses an inhaler for relief, which sometimes helps and sometimes does not. Healangela takes nitroglycerin, which provides some relief. He has been advised by Dr. Goel to continue using nitroglycerin as needed. He has been taking Nexium for GERD, which has been effective in managing his symptoms. However, he still experiences episodes of GERD at night, particularly when lying flat. He reports that Tums alsoprovide relief during these episodes. PAST SURGICAL HISTORY: Pacemaker insertion Objective BP 122/70 Pulse 65 Ht 5' 11 Wt 206 lb 9.6 oz SpO2 94% BMI 28.81 kg/m?? Physical Exam Physical Exam General Appearance: Normal. Vital signs: Within normal limits. HEENT: Within normal limits. Respiratory: Clear to auscultation, no wheezing, rales or rhonchi. Cardiovascular: Regular rate and rhythm, no murmurs, rubs, or gallops. Extremities: no edema, palpable pulses. Skin: Warm and dry, no rash. Neurological: Normal. Psychiatric: Normal. Assessment & Plan Dizziness Orthostatic hypotension Numbers dropped significantly from laying to sitting and then again when standing. This is probablythe cause of dizziness. We discussed hydration and stopping for a minute with any changes in position to allow the BP and pulse to catch up. Would rather not change cardiac medications yet [facility] he has been doing so well. Will want to have Dr Santiago opinion before changing medications. Gastroesophageal reflux disease without esophagitis The nitroglycerin may be easing some esophageal spasm when he takes it. Does not seem to be cardiacissues. Dr Santiago is comfortable with his use of NTG. Assessment & Plan 1. Dizziness: - The dizziness could be attributed to a drop in blood pressure upon standing, which is not uncommon. - His current medication regimen, including beta blockers and isosorbide, may also contribute to this symptom. However, given that he took nitroglycerin today without experiencing dizziness, it is unlikely that these medications are exacerbating the condition. - Blood pressure will be monitored in various positions (lying down, sitting up, standing) to identify any potential differences. 2. Gastroesophageal Reflux Disease (GERD): - He reports that nitroglycerin helps with his symptoms, suggesting possible esophageal spasms. - He also takes Nexium, which has been effective in managing his symptoms. - He is advised to continue using Tums and Nexium as needed. 3. Diabetes Mellitus: - His blood sugar levels have been stable, with readings ranging from 140-160 mg/dL. - The last A1c was 6.4%. An eye exam is scheduled for this to monitor for any diabetes-related complications. - He is advised to continue monitoring his blood sugar levels and maintain his current diet and medication regimen. 4. Shortness of breath: - He has been experiencing episodes of shortness of breath, which he attributes to his pacemaker. These episodes are often accompanied by a cough that subsides once his breathing normalizes. - He reports no chest tightness. He uses an inhaler for relief, which sometimes helps and sometimesdoes not. He also takes nitroglycerin, which provides some relief. - He has been advised by Dr. Goel to continue using nitroglycerin as needed. documented in this encounter Plan of Treatment Upcoming Encounters Date Type Department Care Team (Late st Contact Info) Description 01/03/2025 8:30 AM EDT Office Visit [facility] [address] [place] [phone] Avelina Fernandez MD [address] [place] [address] documented as of this encounter Visit Diagnoses Diagnosis Dizziness- Primary Dizziness and giddiness Orthostatic hypotension Gastroesophageal reflux disease without esophagitis Esophageal reflux documented in this encounter Additional Health Concerns Assessment Noted Time PHQ-9 Depression Total Score: 0 10/04/19 25 11:32 AM EDT documented as of this encounter Care Teams Snuff Container Inspector Relationship Specialty Start Date End Date Rosa M Del Toro MD [address] [place] [address] PCP - General Family Medicine 10/25/22 Rosa M Platt, RN [address] [place] [address] Registered Nurse Family Medicine 03/01/23 documented as of this encounter
--- OUTSIDE RECORDS SUMMARY | 2024-12-17 08:36 | XMS_ITS | Encounter Summary ---
Author Organization [facility] Healthcare Address [address] [place] [address] Care Team Providers Care Reweaver Name Role Phone Rosa M Del Toro MD Primary Care Provider [phone] Rosa M Platt RN Unavailable [phone] Reason for Visit * Reason Onset Date Comments Med Refill 12/03/2024 Encounter Details Date Type Department Care Team (Late st Contact Info) Description 12/03/2024 Refill [facility] Family Medicine [address] [place] [phone] Rosa M Del Toro MD [address] [place] [address] Simple chronic bronchitis (HCC) Social History Tobacco Use Types Packs/Day [...] How often do you attend chur or tenriism services? 1 to 4 times per year [...] Recorded Patient Health Questionnaire-2 Score 0 10/03/2024 [facility] of Occupat ional Health - Occupational Stress [...] Dermatology [address] [place] [phone] Avelina Fernandez MD [address] [place] [address] documented as of this encounter Visit Diagnoses Diagnosis Simple chronic bronchitis (HCC) Simple chronic bronchitis documented in this encounter Additional Health Concerns Assessment Noted Time PHQ-9 Depression Total Score: 0 10/04/19 25 11:32 AM EDT documented as of this encounter Care Teams Reweaver Relationship Specialty Start Date End Date Rosa M Del Toro MD [address] [place] [address] PCP - General Family Medicine 10/25/22 Rosa M Platt, RN [address] [place] [address] Registered Nurse Family Medicine 03/01/23 documented as of this encounter
--- OUTSIDE RECORDS SUMMARY | 2024-12-17 08:36 | XMS_ITS | Encounter Summary ---
Author Organization [facility] Healthcare Address [address] [facility] [address] Care Team Providers Care Rn Obgyn Name Role Phone Rosa M Del Toro MD Unavailable Rosa M Del Toro MD Primary Care Provider [phone] Rosa M Platt RN Unavailable [phone] Rosa M Del Toro MD Unavailable [phone] Rosa M Del Toro MD Unavailable [phone] Encounter Details Date Type Department Care Team (Late st Contact Info) Description 01/31/2023 Abstract [facility] Family Medicine [address] [place] [address] Rosa M Del Toro MD [address] [place], [place] [phone] Social History Tobacco Use Types Packs/Day Years [...] often do you attend chur ch or moravian services? 1 to 4 times per year [...] Recorded Patient Health Questionnaire-2 Score 0 11/08/2022 [facility] [place] of Occupat ional Health - Occupational Stress [...] Dermatology [address] [place] [address] Avelina Fernandez MD [address] [place] [address] documented as of this encounter Visit Diagnoses Not on filedocumented in this encounter Additional Health Concerns Assessment Noted Time PHQ-9 Depression Total Score: 0 11/09/19 9:00 AM EDT documented as of this encounter Care Teams Rn Obgyn Relationship Specialty Start Date End Date Rosa M Del Toro MD [address] [facility] [place] [address] PCP - ACO Reach 09/08/22 06/15/23 Rosa M Del Toro MD [address] [place], [place] [address] PCP - General Family Medicine 10/25/22 Rosa M Del Toro MD [address] [facility] [place] [address] PCP - ACO Reach 08/16/23 05/23/24 Rosa M Del Toro MD [address] [facility] [place] [address] PCP - ACO Reach 05/31/24 07/18/24 Rosa M Platt RN [address] [facility] [place] [address] Registered Nurse Family Medicine 03/01/23 documented as of this encounter
--- OUTSIDE RECORDS SUMMARY | 2024-12-17 08:36 | XMS_ITS ---
Author Organization [facility] Address [address] [facility] [place] [address] Care Team Providers Care Die Stamper Name Role Phone Rosa M Del Toro MD Primary Care Provider [phone] Rosa M Brownlee RN Unavailable [phone] Chronic Care Management (CCM) Status:Enrolled (Active) [...] Rosa M Brownlee RN(Responsible Staff) Registered Nurse [phone] Continued Care and Services Coordination
--- OUTSIDE RECORDS SUMMARY | 2024-12-17 08:36 | XMS_ITS | Encounter Summary ---
Author Organization [facility] Address [address] [facility] [place] [address] Care Team Providers Care Supervisor Wool Shearing Name Role Phone Rosa M Del Toro MD Unavailable [phone] Rosa M Del Toro MD Primary Care Provider Rosa M Platt RN Unavailable [phone] Rosa M Del Toro MD Unavailable Rosa M Del Toro MD Unavailable [phone] Encounter Details Date Type Department Care Team (Late st Contact Info) Description 10/25/2022 Abstract [facility] [address] [facility] [address] [address] [place] [address] Kimberlyn Fishman MD [address] [place] [address] Social History Tobacco Use Types Packs/Day Years [...] [address] [place] [address] Avelina Fernandez MD [address] [place] [address] documented as of this encounter Visit Diagnoses Not on filedocumented in this encounter Care Teams Supervisor Wool Shearing Relationship Specialty Start Date End Date Rosa M Del Toro MD [address] [facility] [place] [place] [address] PCP - ACO Reach 09/08/22 06/15/23 Rosa M Del Toro MD [address] [place] [address] PCP - General Family Medicine 10/25/22 Rosa M Del Toro MD [address] [place] [address] PCP - ACO Reach 08/16/23 05/23/24 Rosa M Del Toro MD [address] [facility] [place] [address] PCP - ACO Reach 05/31/24 07/18/24 Rosa M Platt RN [address] [place] [address] Registered Nurse Family Medicine 03/01/23 documented as of this encounter
--- OUTSIDE RECORDS SUMMARY | 2024-12-17 08:36 | XMS_ITS | Clinical Summary ---
Author Organization [facility] Address [address] [place] [address] Care Team Providers Care Contracts Intern Name Role Phone Rosa M Del Toro MD Primary Care Provider [phone] Bobby Agee MD Unavailable Petey Redding CNP Unavailable [phone] Guido Campos MD Unavailable [phone] Allergies No known active allergies Medications aspirin 81 mg EC tablet Take 81 mg by mouth in the morning. Active magnesium oxide (Mag-Ox) 400 mg tablet 400 mg three times daily. Take 3 tablets Active albuterol (ProAir HFA) 90 mcg/actuation inhalerIndication s:Dyspnea on exertion Inhale 2 puffs every 4 (four) hours if needed for wheezing or shortness of breath. 8.5 g 2 3 Active nitroglycerin (Nitrostat) 0.4 mg SL tabletIndications :Coronary artery disease involving ak chin coronary artery of ak chin heart without angina pectoris Place 1 tablet (0.4 mg) under the tongue every 5 (five) minutes if needed for chest pain. 25 tablet 3 4 Active mycophenolate (Myfortic) 180 mg EC tabletIndications :Aftercare following organ transplant Take 3 tablets (540 mg) by mouth two times daily. 540 tablet 3 5 Active empagliflozin (Jardiance) 10 mgIndications:Con gestive heart failure, unspecified HF chronicity, unspecified heart failure type (CMS/HCC) Take 1 tablet (10 mg) by mouth once daily as directed. 90 tablet 3 5 05/22/19 Active tacrolimus (Prograf) 0.5 mg capsuleIndication s:Kidney replaced by transplant Take 1 capsule (0.5 mg) by mouth two times daily. 60 capsule 11 5 06/11/19 Active ranolazine (Ranexa) 500 mg 12 hr tabletIndications :Coronary artery disease, unspecified vessel or lesion type, unspecified whether angina present, unspecified whether ak chin or transplanted heart Take 1 tablet (500 mg) by mouth two times daily. Do not crush, chew, or split. 180 tablet 3 5 08/29/19 Active atorvastatin (Lipitor) 80 mg tabletIndications :Coronary artery disease, unspecified vessel or lesion type, unspecified whether angina present, unspecified whether ak chin or transplanted heart Take 1 tablet (80 mg) by mouth at bedtime. 90 tablet 5 08/29/19 Active lisinopril 5 mg tabletIndications :Aftercare following organ transplant,Essent ial hypertension TAKE 1 TABLET BY MOUTH IN THE MORNING 90 tablet 3 5 Active isosorbide mononitrate ER (Imdur) 60 mg 24 hr tabletIndications :Chest pain, unspecified type Take 1 tablet (60 mg) by mouth once daily as directed. Do not crush or chew. 90 tablet 3 5 Active esomeprazole (NexIUM) [address] capsuleIndication s:Gastroesophagea l reflux disease without esophagitis Take 1 capsule (40 mg) by mouth before breakfast. Do not open capsule. 90 capsule 3 5 Active clopidogrel (Plavix) 75 mg tabletIndications :Coronary artery disease, unspecified vessel or lesion type, unspecified whether angina present, unspecified whether ak chin or transplanted heart Take 1 tablet (75 mg) by mouth once daily as directed. 90 tablet 3 5 11/13/19 Active metoprolol succinate XL (Toprol-XL) 100 mg 24 hr tabletIndications :Palpitations Take 1 tablet (100 mg) by mouth in the morning. Do not crush or chew. 90 tablet 3 5 11/13/19 Active Active Problems Problem Noted Date Diagnosed [...] 11/08/2022 12/05/2022 Coronary artery disease invo lving ak chin coronary artery of ak chin heart with unstable angina pectoris 11/08/2022 12/05/2022 [...] 12/05/2022 Nocturia 11/08/2022 12/05/2022 Upper respiratory infection 11/08/2022 08/2 04/2022 Status post insertion of hermila g-eluting stent into left anterior descending (LAD) artery for coronary artery disease 11/08/2022 12/05/2022 Ventricular tachycardia 11/08/2022 12/06/19 23 Age-related nuclear cataract of left eye 023 [...] Type Department Care Team Description 11/11/[address] [place] [phone] Federico Chester MD Coronary artery disease, unspecified vessel or lesion type, unspecified whether angina present, unspecified whether ak chin or transplanted heart; Palpitations 10/22/2024 9:30 AM EDT Ancillary Procedure [address] [id number] Encounter for checking and testing of cardiac pacemaker pulse generator (battery) 10/17/2024 2:30 PM EDT Follow-Up [facility] Transplant [address] [place] [address] Sean Aden CNP Immunosuppression (Primary Dx); Renal transplant recipient; Impaired fasting blood sugar; Hypertension, unspecified type; Erythrocytosis 10/17/2024 10:00 AM EDT Office Visit [address] [phone] Federico Chester MD Gastroesophageal reflux disease without esophagitis (Primary Dx); Chest pain, unspecified type; Coronary artery disease, unspecified vessel or lesion type, unspecified whether angina present, unspecified whether ak chin or transplanted heart; Palpitations 10/06/[address] [place] [phone] Federico Chester MD Essential hypertension (Primary Dx); Aftercare following organ transplant 09/18/2024 9:45 AM EDT Office Visit [facility] [address] [place] [facility] [place] [phone] Federico Chester MD Congestive heart failure, unspecified HF chronicity, unspecified heart failure type (CMS/HCC) (Primary Dx); Coronary artery disease, unspecified vessel or lesion type, unspecified whether angina present, unspecified whether ak chin or transplanted heart; Gastroesophageal reflux disease without esophagitis; Dizziness; Palpitations; Ischemic cardiomyopathy 09/18/2024 Telephone [facility] [address] [place] [phone] Vi Ballard MA from Last 3 Months Immunizations Immunization Administration [...] place to sleep or slept in a skilled nursing (including now)? No 01/25/2023 Hunger Vital Sign [...] Info) Description 04/24/2025 1:30 PM EST Follow-Up [facility] Transplant [address] [place] [phone] Sean Aden, CLOTH SANDER [address] [place] [address] Health Maintenance Due Date Last Done Comments [...] this topic Medical Devices Implanted Type Area Patrol Lady Device Identifier Shelf Expiration Date Model / [...] as per schedule. Please see attached note Jme Soto MD CV IMPLANTABLE CARDIAC DEVICE FL OCEDURES Final Result * POCT rack urine [...] lead unit performed (09/18/2024 10:05 AM EDT) us Federico Chester MD ECG ORDERABLES Final Result * (ABNORMAL) Hemoglobin A1c (05/18/2023 9:16 AM EST) Hemoglobin A1C 6.4(H) 4.0 - 6.0 % 05/18/2023 1:20 PM EST [facility] Estimated Average Glucose 137 mg/dL 05/18/2023 1:20 PM EST [facility] Blood Venous blood specimen / Unknown Venipuncture / Unknown 05/18/2023 9:16 AM EST 05/18/2023 9:16 AM EST Bobby Agee MD LAB BLOOD ORDERABLES Final Resul t [facility] [address] [place] [address] from Last 3 Months or Most Recently Relevant to Health Maintenance Insurance [facility] MEDICARE ADVANTAGE [facility] MEDICARE ADVANTAGE Advance Directives * Full Code (Latest Code Status on File) Date Activated Date Inactivated Comments 01/25/2023 3:23 AM 01/25/2023 9:56 PM Care Teams Contracts Intern Relationship Specialty Start Date End Date Rosa M Del Toro MD PCP - General 01/25/22 Bobby Agee MD [address] [place] [address] [place] [address] Consulting Physician Urology 01/25/22 Petey Redding CNP [address] [place] [address] [place] [address] Nurse Practitioner Urology 09/27/22 Guido Campos MD [address] [place] [address] [place] [address] Consulting Physician Transplant Surgery 12/22/22
--- OUTSIDE RECORDS SUMMARY | 2024-12-17 08:36 | XMS_ITS | Encounter Summary ---
Author Organization [facility] Address [address] [facility] [place] [address] Care Team Providers Care Buffing Wheel Raker Name Role Phone Rosa M Del Toro MD Primary Care Provider [phone] Rosa M Platt RN Unavailable [phone] Encounter Details Date Type Department Care Team (Late st Contact Info) Description 12/03/[address] [facility] Family Medicine [address] [place] [phone] Rosa M Del Toro MD [address] [place], [place] [id number] Social History Tobacco Use Types Packs/Day Years [...] often do you attend chur ch or baptism services? 1 to 4 times per year 11/01/2022 Do you belong to any clubs o r organizations such as worship groups, unions, fraternal or athletic groups, or [...] Recorded Patient Health Questionnaire-2 Score 0 10/03/2024 [facility] Occupational Stress Questionnaire Answer [...] Dermatology [address] [place] [address] Avelina Fernandez MD [address] [facility] [address] [place] [address] documented as of this encounter Visit Diagnoses Not on filedocumented in this encounter Additional Health Concerns Assessment Noted Time PHQ-9 Depression Total Score: 0 10/04/19 25 11:32 AM EDT documented as of this encounter Care Teams Buffing Wheel Raker Relationship Specialty Start Date End Date Rosa M Del Toro MD [address] [place] [address] PCP - General Family Medicine 10/25/22 Rosa M Platt, TATO [address] [place] [address] Registered Nurse Family Medicine 03/01/23 documented as of this encounter
--- OUTSIDE RECORDS SUMMARY | 2024-12-17 08:36 | XMS_ITS | Clinical Summary ---
Author Organization [facility] Healthcare Address [address] [place] [address] Care Team Providers Care Supervisor Roving Department Name Role Phone Rosa M Gonzales MD Primary Care Provider [phone] Rosa M Platt RN Unavailable [phone] Allergies No known active allergies Medications [...] 10 mg by mouth in the morning. 023 Active esomeprazole (NexIUM) [address] capsule Take 1 capsule by mouth Daily Active nitroglycerin (Nitrostat) 0.4 MG SL tabletIndications :Coronary artery disease involving venetie ira coronary artery of venetie ira heart with unstable angina pectoris (HCC) Place 1 tablet (0.4 mg) under the tongue every 5 (five) minutes if needed for chest pain. 90 tablet 12 023 Active metoprolol succinate XL (Toprol-XL) 200 MG 24 hr tablet Take 100 mg by mouth Daily 023 Active atorvastatin (Lipitor) 80 MG tablet Take 80 mg by mouth Daily 023 Active isosorbide mononitrate ER (Imdur) 60 MG 24 hr tablet 024 Active mycophenolate (Myfortic) 180 MG EC tabletIndications :Aftercare following organ transplant Take 1 tablet (180 mg) by mouth in the morning and 1 tablet (180 mg) before bedtime. 180 tablet 024 2024 Active tacrolimus (Prograf) 0.5 MG capsuleIndication s:History of kidney transplant (HCC) Take 1 capsule (0.5 mg) by mouth in the morning and 1 capsule (0.5 mg) before bedtime. 180 capsule 025 2025 Active amoxicillin (Amoxil) 500 MG capsule TAKE 4 CAPSULES BY MOUTH ONE HOUR PRIOR TO DENTAL APPOINTMENT. 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 Also dispense test strips and lancets of insurance choice. 1 kit 025 2025 Active True Metrix Blood Glucose Test test strip use to test BLOOD SUGAR DAILY Active Drug Troy Unilet Lancets 30G misc use to test BLOOD SUGAR DAILY Active albuterol HFA 90 mcg/act inhalerIndication s:Simple chronic bronchitis (HCC) Inhale 2 puffs every 4 (four) hours if needed for shortness of breath 18 g 025 2025 Active magnesium oxide (Mag-Ox) 400 (240 Mg) MG tabletIndications :History of kidney transplant (HCC) TAKE 1 TABLET BY MOUTH IN THE MORNING then TAKE 1 TABLET BY MOUTH IN THE EVENING then TAKE 1 TABLET BY MOUTH BEFORE bedtime 270 tablet 1 Active albuterol HFA 90 mcg/act inhalerIndication s:Simple chronic bronchitis (HCC) Inhale 2 puffs every 4 (four) hours if needed for shortness of breath 18 g 024 2024 Discontinued(R eorder) magnesium oxide (Mag-Ox) 400 (240 Mg) MG tabletIndications :History of kidney transplant (HCC) TAKE 1 TABLET BY MOUTH IN THE MORNING then TAKE 1 TABLET BY MOUTH IN THE EVENING then TAKE 1 TABLET BY MOUTH BEFORE bedtime 270 tablet 025 2024 Discontinued Active Problems Problem Noted Date Diagnosed [...] tophus 11/08/2022 Coronary artery disease invo lving venetie ira coronary artery of venetie ira heart with unstable angina pectoris 11/08/2022 Overview [...] lfuid overload. ECHO with EF of 35% 08/07. Assessment & Plan (10/03/2024 1:07 PM EDT): [...] Gastroesophageal reflux disease 12/09/2009 Assessment & Plan (12/03/2024 3:06 PM EDT): The nitroglycerin may be easing some esophageal spasm when he takes it. Does not seem to be cardiac issues. Dr Santiago is comfortable with his use of NTG. Assessment & Plan (07/27/2023 6:16 PM EDT): [...] Encounters Date Type Department Care Team Description 12/04/2024 Refill [facility] [address] [place] [address] Rosa M Gonzales MD History of kidney transplant (HCC) 12/03/2024 2:00 PM EDT Office Visit [facility] [address] [place] [address] Rosa M Gonzales MD Dizziness (Primary Dx); Orthostatic hypotension; Gastroesophageal reflux disease without esophagitis 12/03/2024 Refill [facility] [address] [place] [address] Rosa M Gonzales MD Simple chronic bronchitis (HCC) 12/03/2024 Bamboo flowsheet [facility] [address] [place] [address] Rosa M Gonzales MD 12/03/2024 Travel 11/15/2024 Clinisync Result Encounter [facility] External Department Unsolicited Provider, Generic External Data 11/12/2024 Patient Outreach [facility] [place] [address] Rosa M Platt RN 11/07/2024 Results Follow-Up [facility] [address] [place] [address] Kimberlyn Fishman MD Dermatopathology exam 11/04/2024 9:45 AM EDT Office Visit [facility] [address] [place] [address] Kimberlyn Fishman MD Seborrheic keratosis (Primary Dx); Lentigines; History of basal cell carcinoma; Actinic keratosis; Neoplasm of unspecified behavior of bone, soft tissue, and skin; Seborrheic keratosis, inflamed 11/04/2024 Bamboo flowsheet [facility] [address] [place] [address] Kimberlyn Fishman MD 11/04/2024 Travel 10/15/2024 Clinisync Result Encounter [facility]S External Department Unsolicited Provider, Generic External Data 10/14/2024 Clinisync Result Encounter [facility]OMS External Department Unsolicited Provider, Generic External Data 10/03/2024 11:30 AM EDT Office Visit [facility] Medicine [address] [place] [address] Rosa M Gonzales MD Wellness examination (Primary [...] polyneuropathy (HCC); Cardiomyopathy, unspecified (HCC) 10/03/2024 Telephone [facility] [address] [facility] [address] [facility] [place] [address] Rosa M Gonzales MD 10/03/2024 Bamboo flowsheet [facility] [address] [facility] [address] Rosa M Gonzales MD 10/03/2024 Travel 10/02/2024 Patient Outreach [place] [address] [address] Rosa M Platt, TATO from Last 3 Months Immunizations Immunization Administration [...] often do you attend chur ch or temple services? 1 to 4 times per year 11/01/2022 Do you belong to any clubs o r organizations such as moravian groups, unions, fraternal or athletic groups, or [...] Recorded Patient Health Questionnaire-2 Score 0 10/03/2024 [facility] of Occupat ional Health - Occupational [...] Pulse 65 12/03/2024 1:53 PM EDT Temperature 36.3 C (97.4 F) 07/27/2023 1:35 PM EDT Respiratory Rate - - Oxygen Saturation 94% 12/03/2024 1:5 3 PM EDT Inhaled Oxygen Concentration - - Weight 93.7 kg (206 lb 9.6 oz) 12/03/2024 1:53 PM EDT Height 180.3 cm (5' 11 ) 12/03/2024 1:5 3 PM EDT Body Mass Index 28.81 12/03/2024 1:53 PM EDT Plan of Treatment Upcoming Encounters Date Type Department Care Team (Late st Contact Info) Description 01/03/2025 8:30 AM EDT [facility] [address] [place] [address] Avelina Fernandez MD [address] [place] [address] Health Maintenance Due Date Last Done Comments [...] Procedure Name Priority Date/Time Associated Diagnosis Comments TACROLIMUS (FK506), BLOOD Routine 2024 9:03 AM EDT METRO BILIRUBIN, DIRECT Routine 11/16/19 9:03 AM EDT ALL MAGNESIUM Routine 11/15/2024 9:03 AM EDT ALL PHOSPHOROUS Routine 11/15/2024 9:03 AM EDT ALL URIC ACID Routine 11/15/2024 9:03 AM EDT [facility] CMP (CMP) (FOR REMOTE [facility] USE) Routine 11/15/2024 9:03 AM EDT ALL CBC WITH AUTO DIFF Routine 9:03 AM EDT SKIN / NAIL BIOPSY Routine 11/04/2024 9: [...] AM EDT [facility] CMP (CMP) (FOR REMOTE [facility] USE) Routine 10/14/2024 8:35 AM EDT HEMOGLOBIN A1C Routine 03/05/2024 Elevated fasting glucose HM COLONOSCOPY Routine 01/26/2024 3:11 PM EDT COLOR FUNDUS PHOTOGRAPHY - OU - BOTH EYES Routine 05/18/2021 12:00 PM EST from Last 3 Months or Most Recently Relevant to Health Maintenance Results * TACROLIMUS (FK506), BLOOD (11/15/2024 9:03 AM EDT) Only the most recent of2 resultswithin the time period is included. TACROLIMUS (FK506), BLOOD 6.7 5.0 - 20.0 ng/mL [facility] Comment: This test was developed and its performance characteristics determined by [employer]. It has not been cleared or approved [...] ng/mL Performed by LC-MS/MS technology. Performed at: [address] [id number] [employer] [place] Former: Evan Orozco MD, Phone: [phone] 11/15/2024 9:03 AM EDT 11/15/2024 9:05 AM EDT Narrative [facility] - 11/19/2024 2:08 PM EDT Generic External Data Provider LAB BLOOD ORDERAB LES Final Result [facility] * METRO BILIRUBIN, DIRECT (11/15/2024 9:03 AM EDT) Only the most recent of2 resultswithin the time period is included. BILIRUBIN DIRECT 0.1 0.0 - 0.2 mg/dL TB 11/15/2024 9:03 AM EDT 11/15/2024 9:05 AM EDT Narrative [facility] - 11/15/2024 9:39 AM EDT Generic External Data Provider [facility] F inal Result Performing Organization Address City/[facility]/ZIP Co de Phone Number [facility] * (ABNORMAL) [facility] CMP (CMP) (FOR REMOTE [facility] USE) (11/15/2024 9:03 AM EDT) Only the most recent of2 resultswithin the time period is included. SODIUM 141 136 - 145 mmol/L [facility] POTASSIUM 4.7 3.5 - 5.1 mmol/L [facility] CHLORIDE 104 98 - 107 mmol/L [facility]H CARBON DIOXIDE 30.8 21.0 - 32.0 mmol/L TBH ANION GAP 10.9 TBH GLUCOSE 136(H) 74 - 106 mg/dL TBH BLOOD UREA NITROGEN 18.0 7.0 - 18.0 mg/dL TBH CREATININE 1.26 0.70 - 1.30 mg/dL TBH TBH EGFR-AF DUTCH >60 >=60 mL/min/1. 73m 2 TBH TBH EGFR-NON AF DUTCH 58(L) >=60 mL/min/1. 73m 2 TBH BUN CREATININE RATIO 14.3 TBH CALCIUM 9.2 8.5 - 10.1 mg/dL TBH BILIRUBIN TOTAL 0.5 0.2 - 1.0 mg/dL TBH ASPARTATE AMINO TRANSFERASE 22 15 - 37 U/L TBH ALANINE AMINOTRANSFERASE 40 16 - 63 U/L TBH ALKALINE PHOSPHATASE 106 46 - 116 U/L TBH TOTAL PROTEIN 7.0 6.4 - 8.2 g/dL TBH ALBUMIN LEVEL 3.8 3.4 - 5.0 g/dL TBH GLOBULIN 3.2 g/dL TBH ALBUMIN GLOBULIN RATIO 1.2 TBH 11/15/2024 9:03 AM EDT 11/15/2024 9:05 AM EDT Narrative [facility] - 11/15/2024 9:39 AM EDT Generic External Data Provider [facility] F inal Result Performing Organization Address [facility] de Phone Number [facility] * ALL URIC ACID (11/15/2024 9:03 AM EDT) Only the most recent of2 resultswithin the time period is included. URIC ACID 6.1 3.5 - 7.2 mg/dL TB 11/15/2024 9:03 AM EDT 11/15/2024 9:05 AM EDT Narrative [facility] - 11/15/2024 9:39 AM EDT Generic External Data Provider [facility] F inal Result Performing Organization Address [facility] de Phone Number [facility] * ALL PHOSPHOROUS (11/15/2024 9:03 AM EDT) Only the most recent of2 resultswithin the time period is included. PHOSPHORUS 3.3 2.6 - 4.7 mg/dL TBH 11/15/2024 9:03 AM EDT 11/15/2024 9:05 AM EDT Narrative [facility] - 11/15/2024 9:39 AM EDT Generic External Data Provider [facility] F inal Result Performing Organization Address [facility] de Phone Number [facility] * (ABNORMAL) ALL MAGNESIUM (11/15/2024 9:03 AM EDT) Only the most recent of2 resultswithin the time period is included. MAGNESIUM 1.6(L) 1.8 - 2.4 mg/dL TBH 11/15/2024 9:03 AM EDT 11/15/2024 9:05 AM EDT Narrative [facility] - 11/15/2024 9:39 AM EDT us Generic External Data Provider [facility] F inal Result [facility] * (ABNORMAL) ALL CBC WITH AUTO DIFF (11/15/2024 9:03 AM EDT) Only the most recent of2 resultswithin the time period is included. TBH WBC 6.4 4.0 - 11.0 10 3/uL TBH TBH RBC 5.36 4.70 - 6.10 10 6/uL TBH TBH HGB 15.4 14.0 - 18.0 g/dL TBH TBH HCT 47.4 42.0 - 54.0 % TBH TBH MCV 88.4 80.0 - 94.0 fL TBH TBH MCH 28.7 25.9 - 34.0 pg TBH TBH MCHC 32.5 29.9 - 35.2 g/dL TBH TBH RDW 14.6 11.0 - 15.0 % TBH TBH PLT 202 150 - 450 10 3/uL TBH TBH MPV 10.3 9.5 - 13.5 fL TBH NEUTROPHILS PERCENT AUTO 71.0 43.0 - 75.0 % TBH LYMPHOCYTES PERCENT AUTO 16.9(L) 20.5 - 60.0 % TBH MONOCYTES PERCENT AUTO 9.6 1.7 - 12.0 % TBH TBH EO % 1.7 0.9 - 7.0 % TBH BASOPHILS PERCENT AUTO 0.5 0.2 - 2.0 % TBH IMMATURE GRANULOCYTES PCT AUTO 0.3 0.0 - 0.5 % TBH NEUTROPHILS ABSOLUTE AUTO 4.5 1.4 - 6.5 10 3/uL TBH LYMPHOCYTES ABSOLUTE AUTO 1.1(L) 1.2 - 3.8 10 3/uL TBH MONOCYTES ABSOLUTE AUTO 0.6 0.3 - 0.8 10 3/uL TBH TBH EO # 0.1 0.0 - 0.7 10 3/uL TBH BASOPHILS ABSOLUTE AUTO 0.0 0.0 - 0.1 10 3/uL TBH IMMATURE GRANULOCYTES ABS AUTO 0.02 0.00 - 0.03 10 3/uL TBH 11/15/2024 9:03 AM EDT 11/15/2024 9:05 AM EDT Azucena CERVANTES - 11/15/2024 9:30 AM EDT Generic External Data Provider HELEN magallon Result HELEN [facility] * Lesion biopsy (11/04/2024 9:49 AM EDT) Narrative Tyesha RiverMERCEDES - 11/04/2024 9:49 AM EDT Type of [...] Lesion biopsy (11/04/2024 9:49 AM EDT) Azucena Tyesha RiverMERCEDES - 11/04/2024 9:49 AM EDT Type of [...] Amount of lidocaine used: 1.0 cc Result [facility] Kimberlyn Fishman MD DERM PROCEDURE ORDERABLES Fin al Result * Cryotherapy, skin lesion (11/04/2024 9:48 AM EDT) Result [facility] Kimberlyn Fishman MD DERM PROCEDURE ORDERABLES Fin [...] Amount of lidocaine used: 1.0 cc Result [facility] Kimberlyn Fishman MD DERM PROCEDURE ORDERABLES Fin [...] Description Microscopic examination performed. [facility] CPT 13987*4 [facility] Skin (tissue) specimen (specimen) Topography [...] Size of lesion: 0.5 x 0.4 cm us Kimberlyn Fishman MD LAB PATHOLOGY ORDERABLES Margo field Result [facility] * CA ECHO DOPPLER COMPLETE (10/15/2024 2:32 PM EDT) Anatomical Region Laterality Modality Other 10/15/2024 2:32 PM EDT Narrative 10/15/2024 2:33 [place] [address] Cardiology Report Signed Patient: VISHAL DUKE MR#: [id number] : 1960 Acct:[id number] Age/Sex: 63 / M ADM Date: 10/15/24 Loc: CARD Attending Dr: Federico Brown M.D. Ordering Physician: Federico Brown M.D. Date of Service: 10/15/24 Procedure(s): CA echo doppler complete Accession Number(s): [id number] cc: Federico Brown M.D.; ROSA M GONZALES Patient Name: VISHAL DUKE MR#: [id number] : 1960 Exam Date: 10/15/2024 Ordering Doctor: [...] Area (VTI): 3.55 cm2, 3.55 cm2 Deceleration [place]: 0.90 m/s2 Pressure Half-Time: 1.03 s Peak [...] By: Rozina Loza M.D. Signed By: 10/15/24 1433 DD/ 143 TD/TT: Review Scheduling Coordinator: Procedure Note Radiology, Radiologist, - 10/15/2024 [place] [address] Cardiology Report Signed Patient: VISHAL DUKE [facility]#: [id number] : 1Acct:[id number] Age/Sex: 63 / MADM Date: 10/15/24 Loc: CARD Attending Dr: Federico Brown M.D. Ordering Physician: Federico Brown M.D. Date of Service: 10/15/24 Procedure(s): CA echo doppler complete Accession Number(s): [id number] cc: Federico Brown M.D.; JANETROSA M Patient Name: VISHAL DUKE MR#: [id number] : 1960 Exam Date: 10/15/2024 Ordering Doctor: [...] Area (VTI): 3.55 cm2, 3.55 cm2 Deceleration [place]: 0.90 m/s2 Pressure Half-Time: 1.03 s Peak [...] Dictated By: Rozina Loza M.D. Signed By:10/15/24 143 DD/ 31 TD/TT: Review Scheduling Coordinator: us Generic External Data Provider [facility] Final Result * Hemoglobin A1c (03/05/2024) HEMOGLOBIN A1C 6.4 [facility] Blood Venous blood specimen / Unknown 03/05/2024 us Rosa M Gonzales MD LAB BLOOD ORDERABLES [...] Narrative 05/18/2021 12:00 PM EST PERFORMED AT [facility] LOCATION:[id number] [facility] Procedure Note CONVERSION, GENERIC - 08/31/2022 PERFORMED AT [facility] LOCATION:[id number] [facility] us Rosa M Gonzales MD OPHTH PHOTOGRAPHY Final Resul t from Last 3 Months or Most Recently Relevant to Health Maintenance Insurance [facility] MEDICARE ADVANTAGE [employer] Care Teams Supervisor Roving Department Relationship Specialty Start Date End Date Rosa M Gonzalse MD [address] [place] [address] PCP - General Family Medicine 10/25/22 Rosa M Platt, RN [address] [place] [address] Registered Nurse Family Medicine 03/01/23
--- OUTSIDE RECORDS SUMMARY | 2024-12-17 08:36 | XMS_ITS | Encounter Summary ---
Author Organization [facility] Healthcare Address [address] [facility] [place] [address] Care Team Providers Care Guest Service Aide Name Role Phone Rosa M Del Toro MD Primary Care Provider [phone] Rosa M Platt RN Unavailable [phone] Reason for Visit * Reason Comments Med Refill Encounter Details Date Type Department Care Team (Late st Contact Info) Description 12/04/2024 Refill General acute hospital Family Medicine [address] [place] [phone] Rosa M Del Toro MD [address] [place] [address] History of kidney transplant (HCC) [...] week 11/01/2022 How often do you attend [facility] or jehovah's witness services? 1 to 4 times per year 11/01/2022 Do you belong to any clubs o r organizations such as yazidism groups, unions, fraternal or athletic groups, or [...] Recorded Patient Health Questionnaire-2 Score 0 10/03/2024 [facility] of Occupat ional Health - [...] - Rosa M Del Toro MD - 12/04/2024 5:08 PM EDT Refills sent. documented in this encounter Plan of Treatment Upcoming Encounters Date Type Department Care Team (Late st Contact Info) Description 01/03/2025 8:30 AM EDT Office Visit [facility] [address] [place] [address] Avelina Fernandez MD [address] [place] [address] documented as of this encounter Visit Diagnoses Diagnosis History of kidney transplant (HCC) Kidney replaced by transplant documented in this encounter Additional Health Concerns Assessment Noted Time PHQ-9 Depression Total Score: 0 10/04/19 25 11:32 AM EDT documented as of this encounter Care Teams Guest Service Aide Relationship Specialty Start Date End Date Rosa M Del Toro MD [address] [place] [address] PCP - General Family Medicine 10/25/22 Rosa M Platt RN [address] [place] [address] Registered Nurse Family Medicine 03/01/23 documented as of this encounter
--- OUTSIDE RECORDS SUMMARY | 2024-12-17 08:36 | XMS_ITS | Encounter Summary ---
Author Organization [facility] Healthcare Address [address] [facility] [place] [address] Care Team Providers Care Cable Installer Name Role Phone Rosa M Del Toro MD Primary Care Provider Rosa M Platt RN Unavailable [phone] Rosa M Del Toro MD Unavailable [phone] Rosa M Del Toro MD Unavailable [phone] Reason for Visit * Reason Comments Med Refill Encounter Details Date Type Department Care Team (Late st Contact Info) Description 10/17/2023 Refill [facility] Family Medicine [address] [place] [address] Rosa M Del Toro MD [address] [place], [place] [id number] History of kidney transplant (HCC) Social History [...] Recorded Patient Health Questionnaire-2 Score 0 07/27/2023 [facility] of Occupat ional Health - Occupational Stress [...] Dermatology [address] [place] [id number] Avelina Fernandez MD [address] [place] [address] documented as of this encounter Visit Diagnoses Diagnosis History of kidney transplant (HCC) Kidney replaced by transplant documented in this encounter Additional Health Concerns Assessment Noted Time PHQ-9 Depression Total Score: 0 11/09/19 23 9:00 AM EDT documented as of this encounter Care Teams Cable Installer Relationship Specialty Start Date End Date Rosa M Del Toro MD [address] [place] [address] PCP - General Family Medicine 10/25/22 Rosa M Del Toro MD [address] [place] [address] PCP - ACO Reach 08/16/23 05/23/24 Rosa M Del Toro MD [address] [place] [address] PCP - ACO Reach 05/31/24 07/18/24 Rosa M Platt, TATO [address] [place] [address] Registered Nurse Family Medicine 03/01/23 documented as of this encounter
--- OUTSIDE RECORDS SUMMARY | 2024-12-17 08:36 | XMS_ITS | Encounter Summary ---
Author Organization [facility] Address [address] [place] [address] Care Team Providers Care Health Sciences Manager Name Role Phone Mukund Gonzales MD Primary Care Provider [phone] Mukund Platt RN Unavailable [phone] Mukund Gonzales MD Unavailable [phone] Mukund Gonzales MD Unavailable [phone] Encounter Details Date Type Department Care Team [...] often do you attend chur ch or alevism services? 1 to 4 times [...] Recorded Patient Health Questionnaire-2 Score 0 11/23/2023 [facility] - [facility] Stress Questionnaire Answer Date [...] Dermatology [address] [place] [address] Avelina Fernandez MD [address] [place] [address] documented as of this encounter Procedures Procedure Name Priority Date/Time Associated Diagnosis Comments CA ECHO DOPPLER COMPLETE 12/07/2023 11:34 AM EDT documented in this encounter Results * CA ECHO DOPPLER COMPLETE (12/07/2023 11:34 AM EDT) Anatomical Region Laterality Modality Other 12/07/2023 11:3 4 AM EDT Narrative 12/07/2023 11:35 AM EDT The [place] [id number] Cardiology Report Signed Patient: VISHAL DUKE MR#: [id number] : 1960 Acct:[id number] Age/Sex: 62 / M ADM Date: 12/07/23 Loc: CARD Attending Dr: Calin Brown M.D. Ordering Physician: Calin Brown M.D. Date of Service: 12/07/23 Procedure(s): CA echo doppler complete Accession Number(s): [id number] cc: Calin Brown M.D.; MUKUND GONZALES Patient Name: VISHAL DUKE MR#: [id number] : 1960 Exam Date: 12/07/2023 Ordering Doctor: [...] Signed By: 12/07/23 1135 DD/ 1134 TD/TT: Forest Firefighter: Procedure Note Radiology, Radiologist, - 12/07/2023 [place] [address] Cardiology Report Signed Patient: VISHAL DUKE DMR#: [id number] : 1960cct:[id number] Age/Sex: 62 / MADM Date: 12/07/23 Loc: CARD Attending Dr: Calin Brown M.D. Ordering Physician: Calin Brown M.D. Date of Service: 12/07/23 Procedure(s): CA echo doppler complete Accession Number(s): [id number] cc: Calin Brown M.D.; MUKUND GONZALES Patient Name: VISHAL DUKE MR#: [id number] : 1960 Exam Date: 12/07/2023 Ordering Doctor: [...] M.D. Signed By:12/07/23 1135 DD/ 1134 TD/TT: Forest Firefighter: us Generic External Data Provider [facility] Final Result documented in this encounter Visit Diagnoses Not on filedocumented in this encounter Additional Health Concerns Assessment Noted Time PHQ-9 Depression Total Score: 0 11/09/19 9:00 AM EDT documented as of this encounter Care Teams Health Sciences Manager Relationship Specialty Start Date End Date Mukund Gonzales MD [address] [place] [address] PCP - General Family Medicine 10/25/22 Mukund Gonzales MD [address] [facility] [place] [address] PCP - ACO Reach 08/16/23 05/23/24 Mukund Gonzales MD [address] [facility] [place] [address] PCP - ACO Reach 05/31/24 07/18/24 Mukund Platt, TATO [address] [facility] [place] [address] Registered Nurse Family Medicine 03/01/23 documented as of this encounter
--- OUTSIDE RECORDS SUMMARY | 2024-12-17 08:36 | XMS_ITS | Continuity of Care Document ---
Author Organization [facility] Address [address] [place] [address] Phone [phone]
--- OUTSIDE RECORDS SUMMARY | 2024-12-17 08:36 | XMS_ITS | Encounter Summary ---
Author Organization [facility] Healthcare Address [address] [facility] [place] [address] Care Team Providers Care Database Operator Name Role Phone Rosa M Del Toro MD Primary Care Provider [phone] Rosa M Platt RN Unavailable [phone] Rosa M Del Toro MD Unavailable Rosa M Del Toro MD Unavailable [phone] Reason for Visit * Reason Onset Date Comments Med Refill 05/19/2024 Encounter Details Date Type Department Care Team (Late st Contact Info) Description 05/19/2024 Refill [facility] Family Medicine [address] [place] [address] Rosa M Del Toro MD [address] [place] [address] History of kidney transplant (HCC) [...] How often do you attend chur or yarsani services? 1 to 4 times per year 11/01/2022 Do you belong to any clubs o r organizations such as congregation groups, unions, fraternal or athletic groups, or [...] Recorded Patient Health Questionnaire-2 Score 0 03/21/2024 [facility] [place] of Occupat ional Health - Occupational Stress [...] 01/03/2025 8:30 AM EDT Office Visit [facility] [address] [place] [address] Avelina Fernandez MD [address] [place], [place] [id number] documented as of this encounter Visit Diagnoses Diagnosis History of kidney transplant (HCC) Kidney replaced by transplant documented in this encounter Additional Health Concerns Assessment Noted Time PHQ-9 Depression Total Score: 0 11/09/19 9:00 AM EDT documented as of this encounter Care Teams Database Operator Relationship Specialty Start Date End Date Rosa M Del Toro MD [address] [place] [address] PCP - General Family Medicine 10/25/22 Rosa M Del Toro MD [address] [facility] [place] [address] PCP - ACO Reach 08/16/23 05/23/24 Rosa M Del Toro MD [address] [facility] [place] [address] PCP - ACO Reach 05/31/24 07/18/24 Rosa M Platt RN [address] [facility] [place] [address] Registered Nurse Family Medicine 03/01/23 documented as of this encounter
--- OUTSIDE RECORDS SUMMARY | 2024-12-17 08:36 | XMS_ITS | Clinical Summary ---
Author Organization [facility] Address [address] [place] [address] Phone Care Team Providers Care Legal Librarian Name Role Phone Rosa M Del Toro MD Primary Care Provider [phone] Social History Tobacco Use Types Packs/Day Years [...] of Treatment Not on file Care Teams Legal Librarian Relationship Specialty Start Date End Date Rosa M Del Toro MD [address] [place] [address] PCP - General 04/23/21
--- OUTSIDE RECORDS SUMMARY | 2024-12-17 08:36 | XMS_ITS | Encounter Summary ---
Author Organization [facility] Healthcare Address [address] [facility] [place] [address] Care Team Providers Care Automatic Chief Name Role Phone Rosa M Del Toro MD Unavailable Rosa M Del Toro MD Primary Care Provider [phone] Rosa M Platt RN Unavailable [phone] Rosa M Del Toro MD Unavailable Rosa M Del Toro MD Unavailable [phone] Reason for Visit * Reason Comments Med Refill Encounter Details Date Type Department Care Team (Late st Contact Info) Description 12/21/2022 Refill [facility] Family Medicine [address] [place] [address] Rosa M Del Toro MD [address] [place] [address] Kidney transplant status (HCC) Social [...] How often do you attend chur or amish services? 1 to 4 times per year [...] Recorded Patient Health Questionnaire-2 Score 0 11/08/2022 [facility] [place] of Occupat ional Health - Occupational Stress [...] [address] [place] [id number] Avelina Fernandez MD [address] [place] [address] documented as of this encounter Visit Diagnoses Diagnosis Kidney transplant status (HCC) documented in this encounter Additional Health Concerns Assessment Noted Time PHQ-9 Depression Total Score: 0 11/09/19 9:00 AM EDT documented as of this encounter Care Teams Automatic Chief Relationship Specialty Start Date End Date Rosa M Del Toro MD [address] [facility] [place] [address] PCP - ACO Reach 09/08/22 06/15/23 Rosa M Del Toro MD [address] [facility] [place] [address] PCP - General Family Medicine 10/25/22 Rosa M Del Toro MD [address] [facility] [place] [address] PCP - ACO Reach 08/16/23 05/23/24 Rosa M Del Toro MD [address] [facility] [place] [address] PCP - ACO Reach 05/31/24 07/18/24 Rosa M Platt RN [address] [facility] [place] [address] Registered Nurse Family Medicine 03/01/23 documented as of this encounter
--- OUTSIDE RECORDS SUMMARY | 2024-12-17 08:36 | XMS_ITS | Encounter Summary ---
Author Organization [facility] Healthcare Address [address] [facility] [place] [address] Care Team Providers Care Stationary Equipment Mechanic Name Role Phone Rosa M Del Toro MD Primary Care Provider [phone] Rosa M Platt RN Unavailable [phone] Rosa M Del Toro MD Unavailable [phone] Rosa M Del Toro MD Unavailable [phone] Reason for Visit * Reason Onset Date Comments Med Refill 03/19/2024 Encounter Details Date Type Department Care Team (Late st Contact Info) Description 03/19/2024 Refill [facility] Family Medicine [address] [place] [address] Rosa M Del Toro MD [address] [place] [address] Aftercare following organ transplant (Primary [...] How often do you attend chur or advent services? 1 to 4 times per year 11/01/2022 Do you belong to any clubs o r organizations such as yarsanism groups, unions, fraternal or athletic groups, or [...] Recorded Patient Health Questionnaire-2 Score 0 03/21/2024 [facility] [place] of Occupat ional Health - Occupational Stress [...] [address] [place] [address] Avelina Fernandez MD [address] [place] [address] documented as of this encounter Visit Diagnoses Diagnosis Aftercare following organ transplant- Primary documented in this encounter Additional Health Concerns Assessment Noted Time PHQ-9 Depression Total Score: 0 11/09/19 9:00 AM EDT documented as of this encounter Care Teams Stationary Equipment Mechanic Relationship Specialty Start Date End Date Rosa M Del Toro MD [address] [place] [address] PCP - General Family Medicine 10/25/22 Rosa M Del Toro MD [address] [place] [address] PCP - ACO Reach 08/16/23 05/23/24 Rosa M Del Toro MD [address] [place] [address] PCP - ACO Reach 05/31/24 07/18/24 Rosa M Platt RN [address] [place] [address] Registered Nurse Family Medicine 03/01/23 documented as of this encounter
--- OUTSIDE RECORDS SUMMARY | 2024-12-17 08:36 | XMS_ITS | Encounter Summary ---
Author Organization [facility] Address [address] [place] [address] Care Team Providers Care Customer Supply Chain Analyst Name Role Phone Rosa M Del Toro MD Primary Care Provider [phone] Rosa M Platt RN Unavailable [phone] Encounter Details Date Type Department Care Team (Latest Contact Info) Description 12/03/2024 Travel Social History Tobacco Use Types Packs/Day [...] any clubs o r organizations such as nondenominational groups, unions, fraternal [...] Recorded Patient Health Questionnaire-2 Score 0 10/03/2024 [facility] of Occupat ional Health - Occupational [...] Dermatology [address] [place] [address] Avelina Fernandez MD [address] [place] [address] documented as of this encounter Visit Diagnoses Not on filedocumented in this encounter Additional Health Concerns Assessment Noted Time PHQ-9 Depression Total Score: 0 10/04/19 25 11:32 AM EDT documented as of this encounter Care Teams Customer Supply Chain Analyst Relationship Specialty Start Date End Date Rosa M Del Toro MD [address] [facility] [place] [address] PCP - General Family Medicine 10/25/22 Rosa M Platt, RN [address] [facility] [place] [address] Registered Nurse Family Medicine 03/01/23 documented as of this encounter
--- OUTSIDE RECORDS SUMMARY | 2024-12-17 08:36 | XMS_ITS | Encounter Summary ---
Author Organization [facility] Healthcare Address [address] [facility] [place] [address] Care Team Providers Care Truckman Name Role Phone Rosa M Del Toro MD Primary Care Provider [phone] Rosa M Platt RN Unavailable [phone] Rosa M Del Toro MD Unavailable [phone] Rosa M Del Toro MD Unavailable [phone] Reason for Visit * Reason Onset Date Comments Med Refill 07/26/2023 Encounter Details Date Type Department Care Team (Late st Contact Info) Description 07/26/2023 Refill [facility] Family Medicine [address] [place] [address] Rosa M Del Toro MD [address] [place] [address] History of kidney transplant (HCC) [...] How often do you attend chur or sabianist services? 1 to 4 times [...] Recorded Patient Health Questionnaire-2 Score 0 07/27/2023 [facility] [place] of Occupat ional Health - Occupational Stress [...] [address] [place] [id number] Avelina Fernandez MD [address] [place] [address] documented as of this encounter Visit Diagnoses Diagnosis History of kidney transplant (HCC) Kidney replaced by transplant documented in this encounter Additional Health Concerns Assessment Noted Time PHQ-9 Depression Total Score: 0 11/09/19 9:00 AM EDT documented as of this encounter Care Teams Truckman Relationship Specialty Start Date End Date Rosa M De lToro MD [address] [place] [address] PCP - General Family Medicine 10/25/22 Rosa M Del Toro MD [address] [place] [address] PCP - ACO Reach 08/16/23 05/23/24 Rosa M Del Toro MD [address] [place] [address] PCP - ACO Reach 05/31/24 07/18/24 Rosa M Platt RN [address] [place] [address] Registered Nurse Family Medicine 03/01/23 documented as of this encounter
--- OUTSIDE RECORDS SUMMARY | 2024-12-17 08:36 | XMS_ITS | Encounter Summary ---
Author Organization [facility] Address [address] [place] [address] Care Team Providers Care Plum Packer Name Role Phone Rosa M Del Toro MD Primary Care Provider Rosa M Platt RN Unavailable [phone] Encounter Details Date Type Department Care Team (Latest Contact Info) Description 11/07/2024 Results Follow-Up [facility] [address] [facility] [address] [place] [address] Kimberlyn Fishman MD [address] [facility] [address] [place] [address] Dermatopathology exam Social History Tobacco Use Types Packs/Day Years [...] any clubs o r organizations such as restoration groups, unions, fraternal or athletic groups, or [...] Recorded Patient Health Questionnaire-2 Score 0 10/03/2024 [facility] of Occupat ionaz Health - Occupational Stress Questionnaire Answer Date [...] Office Visit [facility] [address] [facility] [address] [place] [address] Avelina Fernandez MD [address] [facility] [address] [place] [address] documented as of this encounter Visit Diagnoses Not on filedocumented in this encounter Additional Health Concerns Assessment Noted Time PHQ-9 Depression Total Score: 0 10/04/19 25 11:32 AM EDT documented as of this encounter Care Teams Plum Packer Relationship Specialty Start Date End Date Rosa M Del Toro MD [address] [facility] [place] [address] PCP - General Family Medicine 10/25/22 Rosa M Platt RN [address] [place] [address] Registered Nurse Family Medicine 03/01/23 documented as of this encounter
--- OUTSIDE RECORDS SUMMARY | 2024-12-17 08:36 | XMS_ITS | Encounter Summary ---
Author Organization [facility] Healthcare Address [address] [facility] [place] [address] Care Team Providers Care Weld Fitter Name Role Phone Rosa M Del Toro MD Primary Care Provider [phone] Rosa M Platt RN Unavailable [phone] Rosa M Del Toro MD Unavailable [phone] Rosa M Del Toro MD Unavailable [phone] Reason for Visit * Reason Onset Date Comments Med Refill 06/27/2023 Encounter Details Date Type Department Care Team (Late st Contact Info) Description 06/27/2023 Refill [facility] Family Medicine [address] [place] [address] Rosa M Del Toro MD [address] [place], [place] [id number] Simple chronic bronchitis (HCC) (Primary Dx) Social [...] How often do you attend chur or mormonism services? 1 to 4 times per year [...] Recorded Patient Health Questionnaire-2 Score 0 02/17/2023 [facility] [place] of Occupat ional Health - Occupational Stress [...] Dermatology [address] [place] [address] Avelina Fernandez MD [address] [place] [address] documented as of this encounter Visit Diagnoses Diagnosis Simple chronic bronchitis (HCC)- Primary Simple chronic bronchitis documented in this encounter Additional Health Concerns Assessment Noted Time PHQ-9 Depression Total Score: 0 11/09/19 9:00 AM EDT documented as of this encounter Care Teams Weld Fitter Relationship Specialty Start Date End Date Rosa M Del Toro MD [address] [place] [address] PCP - General Family Medicine 10/25/22 Rosa M Del Toro MD [address] [facility] [place] [address] PCP - ACO Reach 08/16/23 05/23/24 Rosa M Del Toro MD [address] [place] [address] PCP - ACO Reach 05/31/24 07/18/24 Rosa M Platt RN [address] [place] [address] Registered Nurse Family Medicine 03/01/23 documented as of this encounter
--- OUTSIDE RECORDS SUMMARY | 2024-12-17 08:36 | XMS_ITS | Encounter Summary ---
Author Organization [facility] Healthcare Address [address] [facility] [place] [address] Care Team Providers Care Camera Person Name Role Phone Rosa M Del Toro MD Unavailable [phone] Rosa M Del Toro MD Primary Care Provider [phone] Rosa M Platt RN Unavailable [phone] Rosa M Del Toro MD Unavailable [phone] Rosa M Del Toro MD Unavailable [phone] Reason for Visit * Reason Comments Med Refill Encounter Details Date Type Department Care Team (Late st Contact Info) Description 11/21/2022 Refill [facility] Family Medicine [address] [place] [address] Rosa M Del Toro MD [address] [place] [address] History of kidney transplant (HCC) [...] any clubs o r organizations such as episcopalian groups, unions, fraternal or athletic groups, or [...] Recorded Patient Health Questionnaire-2 Score 0 11/08/2022 [facility] [place] of Occupat ional Health - Occupational Stress [...] Dermatology [address] [place] [address] Avelina Fernandez MD [address] [place] [address] documented as of this encounter Visit Diagnoses Diagnosis History of kidney transplant (HCC) Kidney replaced by transplant documented in this encounter Additional Health Concerns Assessment Noted Time PHQ-9 Depression Total Score: 0 11/09/19 9:00 AM EDT documented as of this encounter Care Teams Camera Person Relationship Specialty Start Date End Date Rosa M Del Toro MD [address] [place] [address] PCP - ACO Reach 09/08/22 06/15/23 Rosa M Del Toro MD [address] [place] [address] PCP - General Family Medicine 10/25/22 Rosa M Del Toro MD [address] [facility] [place] [address] PCP - ACO Reach 08/16/23 05/23/24 Rosa M Del Toro MD [address] [facility] [place] [address] PCP - ACO Reach 05/31/24 07/18/24 Rosa M Platt, TATO [address] [place] [address] Registered Nurse Family Medicine 03/01/23 documented as of this encounter
--- OUTSIDE RECORDS SUMMARY | 2024-12-17 08:36 | XMS_ITS | Encounter Summary ---
Author Organization [facility] Address [address] [place] [address] Care Team Providers Care Rn Diabetes Educator Name Role Phone Rosa M Del Toro MD Primary Care Provider [phone] Rosa M Platt RN Unavailable [phone] Rosa M Del Toro MD Unavailable Rosa M Del Toro MD Unavailable [phone] Encounter Details Date Type Department Care Team (Late st Contact Info) Description 01/26/2024 Orders Only [facility] Family Medicine [address] [place] [address] Unallocated, [facility] ProviderMD [address] [place] [address] Social History Tobacco Use Types Packs/Day Years [...] Recorded Patient Health Questionnaire-2 Score 0 11/23/2023 [facility] of Occupat ional Health - Occupational [...] Dermatology [address] [place] [address] Avelina Fernandez MD [address] [place] [address] documented as of this encounter Procedures Procedure [...] as of this encounter Care Teams Rn Diabetes Educator Relationship Specialty Start Date End Date Rosa M Del Toro MD [address] [facility] [place] [address] PCP - General Family Medicine 10/25/22 Rosa M Del Toro MD [address] [facility] [place] [address] PCP - ACO Reach 08/16/23 05/23/24 Rosa M Del Toro MD [address] [facility] [place] [address] PCP - ACO Reach 05/31/24 07/18/24 Rosa M Platt RN [address] [facility] [address] [facility] [place] [address] Registered Nurse Family Medicine 03/01/23 documented as of this encounter
--- OUTSIDE RECORDS SUMMARY | 2024-12-17 08:47 | XMS_ITS | CCD ---
Author Organization [facility] Care Team Providers Care Loan Documentation Specialist Name Role Phone Rosa M Gonzales Unavailable Unavailable Unavailable YONAS HERRERA Surgeon Unavailable HI Procedure Practitioner Unavailab YONAS Hsieh Attending Unavailable ROSA M GONZALES Primary Care Unavailable ROSA M GONZALES Referring Unavailable LOGAN MALDONADOINNA Admitting Unavailable ROSA M GONZALES Primary Care Unavailable ROSA M GONZALES Referring Unavailable FEDERICO CHESTER Attending Unavailable FEDERICO CHESTER Admitting Unavailable ROSA M GONZALES Primary Care Unavailable ROSA M GONZALES Referring Unavailable Daniel Jansen Attending Unavailable Daniel Jansen Admitting Unavailable JUAN FERREIRA Attending Unavailable XOCHILT CABRERA Admitting Unavailable JULIET GOLDBERG Referring Unavailable ROSA M GONZALES Primary Care Unavailable YOJANA MCDANIELS Surgeon Unavailable HI Procedure Practitioner Unavailab prabhakar MACDONALD, REFERRED Referring Unavailable ROSA M GONZALES Primary Care Unavailable DERICK VIDAL Attending Unavailable DERICK VIDAL Admitting Unavailable ROSA M GONZALES Primary Care Physician [phone] STEPHANIE, DR LAYTON Consulting Unavailable [place]TAHAWY, DR [...] Unavailable JANET, DR DUVAL Primary Care Unavailable [place], DR AIME Arnold Consulting Unavailable [place]TAHAWY, DR [...] Care Provider Rosa M Platt RN Unavailable ROSA M GONZALES Primary Care Physician Rosa M Gonzales MD Unavailable [phone] Reji BROWER Attending Unavailable Sarmini, Schmidt Talal Referring Unavaila ble Sarmini, Schmidt Talal Admitting Unavaila ble Sarmini, Schmidt Talal Attending Unavaila ble Sarmaryjo, Schmidt Talal Attending Unavaila Reji Belle Attending Unavailable Rosa M Gonzales MD Unavailable [phone] Rosa M Platt RN Unavailable [place], EHAB Attending Unavailable SAVZYAN, MACRINA Attending Unavailable SAVZYAN, MACRINA Attending Unavailable [place], EHAB Attending Unavailable TEAGAN VILLANUEVA Referring Unavailable ELTAHAWY, FEDERICO Attending Unavailable ELTASUDHA, FEDERICO Attending Unavailable TEAGAN VILLANUEVA Referring Unavailable EFREN CENTENO Attending Unavailable ALICIA FISHMAN Attending Unavailable ROSA M GONZALES Attending Unavailable PETALICIA FELDMAN Attending Unavailable ROSA M GONZALES Attending Unavailable NICKI VELEZ Attending Unavailable NICKI VELEZ Attending Unavailable ROSA M GONZALES Attending Unavailable ALICIA FISHMAN Attending Unavailable Allergies Allergy Classification Reported Allergen(s) Allergy Type Date of Onset Reaction(s) Facility (1 source) 80789,00; Translations: [42470,00] Propensity to adverse reactions (disorder) 9 [facility] Repository (2 sources) Cephalexin; Translations: [Keflex] Drug Allergy [facility] Repository Medications Current Medications Medication Drug Class(es) Dates Sig (Normalized) Sig (Original) acetaminophen 325 mg / HYDROcodone bitartrate 5 mg oral tablet (1 source) Opioid Agonist Start: 01-30-2024 End: 02-02-2024 take 1 tablet by mouth every six hours for pain HYDROcodone-acetam inophen ([place]) 5-325 MG tablet Indications: Herpes zoster without complication Take 1 tablet by mouth every 6 (six) hours if needed for severe pain for up to 3 days 12 tablet 01/30/2024 02/02/2024 Active [id number] 200 actuat albuterol 0.09 mg/actuat metered dose inhaler (20 sources) beta2-Adrenergic Agonist Start: 12-03-2024 End: 12-03-2025 take 2 puff(s) by inhalation every four hours albuterol HFA 90 mcg/act inhaler Indications: Simple chronic bronchitis (HCC) Inhale 2 puffs every 4 (four) hours if needed for shortness of breath 18 g 12/03/2024 12/03/2025 Active Start: 10-24-2022 End: 06-26-2024 take 2 puff(s) by inhalation every four hours albuterol HFA 90 mcg/act inhaler Indications: Simple chronic bronchitis (HCC) Inhale 2 puffs every 4 (four) hours if needed for shortness of breath 18 g 06/27/2023 Active amoxicillin 500 mg oral capsule (14 sources) Penicillin-class Antibacterial Start: 07-16-2024 take 4 capsules by mouth every hour amoxicillin (Amoxil) 500 MG capsule TAKE 4 CAPSULES BY MOUTH ONE HOUR PRIOR TO DENTAL APPOINTMENT. 07/16/2024 Active atorvastatin 80 mg oral tablet (20 sources) HMG-CoA Reductase Inhibitor Start: 01-17-2022 take 1 tablet by mouth once daily atorvastatin (Lipitor) 80 MG tablet Take 80 mg by mouth Daily 11/21/2022 Active Start: 01-04-2021 take 1 tablet by jacob th once daily Atorvastatin Calcium 80 MG Oral Tablet TAKE 1 TABLET BY MOUTH EVERY DAY Quantity: 30 Refills: 0 Ordered: 04-Apr-2021 DO Start : 04-Jan-2021 Active clopidogrel 75 mg oral tablet (20 sources) P2Y12 Platelet Inhibitor Start: 01-04-2021 take [...] DO Active empagliflozin 10 mg oral tablet (20 sources) Sodium-Glucose Cotransporter 2 Inhibitor Start: 07-05-2022 End: 07-05-2023 take 10 mg by mouth in the morning empagliflozin (Jardiance) 10 MG Take 10 mg by mouth in the morning. 07/05/2022 Active esomeprazole 40 mg delayed release oral capsule (20 sources) Proton Pump Inhibitor Start: 01-11-2024 take 1 capsule by mouth once daily Nexium 40 mg Cap-EC 40 mg = 1 cap(s), Oral, Daily, Refills(s) 0, Control of stomach acid Start Date: 01/11/24 Status: Ordered fluocinonide 0.5 mg/ml topical solution (1 source) Corticosteroid Start: 02-06-2023 fluocinonide (Lidex) 0.05 % external solution Indications: Other seborrheic dermatitis Apply to affected areas on the scalp twice a day for flares, set aside when clear. 30 days 60 mL 11 02/06/2023 Active 24 hr isosorbide mononitrate 60 mg extended release oral tablet (20 sources) Nitrate Vasodilator Start: 01-11-2024 take 1 tablet by mouth once daily in the morning isosorbide mononitrate 60 mg ER Tab 60 mg = 1 tab(s), Oral, qAM, Refills(s) 0, High blood pressure Start Date: 01/11/24 Status: Ordered Start: 07-19-2023 isosorbide mon onitrate ER (Imdur) 60 MG 24 hr tablet 07/19/2023 Active Start: 07-19-2023 take 1 tablet by jacob [...] 02/09/2024 Active lisinopril 5 mg oral tablet (20 sources) Angiotensin Converting Enzyme Inhibitor Start: 01-03-2020 take 1 mg by mouth once daily lisinopril 5 mg Tab mg tab(s), Oral, Daily, Refills(s) 0, High blood pressure Start Date: 01/03/20 Status: Ordered magnesium amino acid chelate (2 sources) Start: 01-01-2020 magnesium butcher o acids chelate Oral, Refills(s) 0 Start Date: 01/01/20 Status: Ordered 24 hr metoprolol succinate 100 mg extended release oral tablet (20 sources) beta-Adrenergic Temo Start: 09-10-2024 metoprolol succinate XL (Toprol-XL) 100 MG 24 hr tablet 09/10/2024 Active Start: 11-21-2022 take 1 tablet by jacob th once daily metoprolol succinate XL (Toprol-XL) 200 [...] 02-03-2021 take 3 tablets by mo [facility] twice daily Mycophenolate Sodium 180 MG Oral Tablet Delayed Release TAKE 3 TABLET Twice daily Quantity: 0 Refills: 0 Ordered: 04-Apr-2021 DO Start : 03-Feb-2021 Active Start: 01-01-2020 take 1 mg by mouth twice daily mycophenolic acid 180 mg oral enteric coated tablet mg tab(s), Oral, BID, Refills(s) 0 Start Date: 01/01/20 Status: Ordered nitroglycerin 0.4 mg sublingual tablet (20 sources) Nitrate Vasodilator Start: 11-08-2022 End: 11-08-2023 nitroglycerin (Nitrostat) 0.4 MG SL tablet Indications: 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 pectoris ([facility]) Place 1 tablet (0.4 mg) under the [...] 5 MG tablet Indications: Kidney transplant status (CMS/[facility]) TAKE 1 TABLET BY MOUTH DAILY 90 tablet 0 03/14/2023 Active Start: 11-06-2020 take 1 tablet by jacob th once daily predniSONE 5 MG Oral Tablet TAKE 1 TABLET DAILY. Quantity: 0 Refills: 0 Ordered: 04-Apr-2021 DO Start : 06-Nov-2020 Active 12 hr ranolazine 500 mg extended release oral tablet (20 sources) Anti-anginal Start: 01-17-2022 take 1 tablet [...] capsule (20 sources) Calcineurin Inhibitor Immunosuppressant Start: 05-20-2024 End: 05-20-2025 take 1 capsule by mouth in the morning tacrolimus (Prograf) 0.5 MG capsule Indications: History of kidney transplant (HCC) Take 1 capsule (0.5 mg) by mouth in the morning and 1 capsule (0.5 mg) before bedtime. 180 capsule 05/20/2024 05/20/2025 Active Start: 03-04-2024 tacrolimus 0.5 mg oral capsule [...] Sig (Original) aspirin 81 mg chewable tablet (20 sources) Platelet Aggregation Inhibitor, Nonsteroidal Anti-inflammatory Drug [...] 1 tablet by jacob th once daily aspirin 81 MG EC tablet Take 81 mg by mouth Daily Active famotidine 40 mg oral tablet (6 [...] bedtime), # 90 tab(s), Refills(s) 0, Pharmacy: [id number], 177.8, cm, 12/25/23 9:23:00 EDT, Height/Length Dosing, 94.3, kg, 12/25/23 9:23:00 EDT, Weight Dosing Start Date: 12/25/23 Status: Ordered magnesium oxide 400 mg oral tablet (20 sources) Start: 05-20-2024 End: 05-20-2025 take 1 tablet by mouth in the morning, then take 1 tablet by mouth in the evening, then take 1 tablet by mouth at bedtime magnesium oxide (Mag-Ox) 400 (240 Mg) MG tablet Indications: History of kidney transplant (HCC) TAKE 1 TABLET BY MOUTH IN THE MORNING then TAKE 1 TABLET BY MOUTH IN THE EVENING then TAKE 1 TABLET BY MOUTH BEFORE bedtime 270 tablet 09/10/2024 12/04/2024 Discontinued Start: 01-17-2022 End: 12-08-2023 take 1 tablet by mouth three [...] Refills: 0 Ordered: 03-Mar-2021 DO Start : 17-Mar-2021 Active Problems Active Problems Problem Classification Problem Date Documented Date Episodic/Chronic Acute and unspecified renal failure (20 sources) Renal failure syndrome; Translations: [Unspecified kidney failure] Onset: 12-05-2022 01-01-2020 Chronic Acute myocardial infarction (20 sources) Myocardial infarction; Translations: [Acute non-ST segment elevation myocardial infarction] Onset: 11-08-2022 01-17-2022 Chronic Cardiac arrest and ventricular fibrillation (20 sources) Ventricular fibrillation; Translations: [Cardiac arrest] Onset: 06-05-2023 07-27-2023 Chronic Cardiac dysrhythmias (20 sources) Ventricular tachycardia; Translations: [Ventricular tachycardia] Onset: 11-08-2022 11-08-2022 Chronic Cardiac dysrhythmias (2 sources) Palpitations; Translations: [Palpitations] Onset: 09-18-2024 Episodic Cataract (20 sources) Age-related nuclear cataract of left eye; Translations: [Age-related nuclear cataract, left eye] Onset: 10-25-2022 10-25-2022 Chronic Chronic kidney disease (20 sources) Kidney transplant status; Translations: [Chronic kidney disease stage 3] Onset: 12-09-2009 Chronic Chronic obstructive pulmonary disease and bronchiectasis (20 sources) Chronic obstructive lung disease; Translations: [Chronic obstructive pulmonary disease, unspecified] Onset: 01-24-2023 02-02-2023 Chronic Complication of device; implant or graft (1 source) Arteriosclerosis of coronary artery bypass graft; Translations: [Atherosclerosis of coronary artery bypass graft(s) without angina pectoris] Onset: 12-25-2023 Chronic Conditions associated with dizziness or vertigo (6 sources) Dizziness; Translations: [Dizziness and giddiness] Onset: 09-18-2024 10-03-2024 Episodic Conduction disorders (5 sources) Automatic implantable cardiac defibrillator in situ; Translations: [Automatic implantable cardiac defibrillator in situ] Onset: 05-14-2024 Chronic Congestive heart failure; nonhypertensive (20 sources) Chronic systolic heart failure; Translations: [Chronic systolic (congestive) heart failure] Onset: 10-24-2022 11-08-2022 Chronic Coronary atherosclerosis and other heart disease (20 sources) Coronary atherosclerosis; Translations: [Coronary atherosclerosis of [place] coronary artery] Onset: 09-28-2021 Chronic Deficiency and other anemia (20 sources) Increased hemoglobin; Translations: [Other hemoglobinopathies] Onset: 08-18-2022 11-08-2022 Chronic Diabetes mellitus with complications (4 sources) Cataract due to diabetes mellitus type 2; Translations: [Type 2 diabetes mellitus with diabetic cataract] 10-03-2024 Chronic Diabetes mellitus without complication (4 sources) Type 2 diabetes mellitus without complication; Translations: [Type 2 diabetes mellitus without complications] 01-26-2024 Chronic Disorders of lipid metabolism (20 sources) Hyperlipidemia; Translations: [Other and unspecified hyperlipidemia] Onset: 05-24-2012 01-01-2020 Chronic Esophageal disorders (20 sources) Gastroesophageal reflux disease; Translations: [Gastro-esophageal reflux disease without esophagitis] Onset: 12-09-2009 11-08-2022 Chronic Essential hypertension (20 sources) Hypertensive disorder; Translations: [Essential hypertension] Onset: 04-17-1991 01-01-2020 Chronic Genitourinary congenital anomalies (20 sources) Autosomal dominant polycystic kidney disease; Translations: [Polycystic kidney, adult type] Onset: 05-04-2022 11-08-2022 Chronic Genitourinary congenital anomalies (2 sources) H/O: congenital anomaly; Translations: [Personal history of other specified (corrected) congenital malformations of genitourinary system] Onset: 01-17-2022 Episodic Gout and other crystal arthropathies (20 sources) 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; Translations: [Chronic gout due to renal impairment, multiple sites, without tophus (tophi)] Onset: 02-16-2012 11-08-2022 Chronic Hyperplasia of prostate (20 sources) Benign prostatic hypertrophy with outflow obstruction; Translations: [Benign prostatic hyperplasia with lower urinary tract symptoms] Onset: 01-17-2022 Chronic Immunity disorders (20 sources) Immunosuppression; Translations: [Immunodeficiency, unspecified] Onset: 05-04-2022 11-08-2022 Chronic Immunizations and screening for infectious disease (2 sources) Patient encounter status; Translations: [Encounter for immunization] 01-26-2024 Episodic Mycoses (2 sources) Tinea corporis; Translations: [Tinea corporis] 01-26-2024 Episodic Neoplasms of unspecified nature or uncertain behavior (4 sources) Neoplastic disease; Translations: [Neoplasm of unspecified behavior of bone, soft tissue, and skin] 05-02-2024 Episodic Nutritional deficiencies (20 sources) Active rickets; Translations: [Rickets, active] Onset: 11-08-2022 Resolved: 07-27-2023 11-08-2022 Chronic Other aftercare (20 sources) Transplant follow-up; Translations: [Encounter for aftercare following other organ transplant] Onset: 05-04-2022 11-08-2022 Chronic Other and unspecified benign neoplasm (1 source) Polyp of colon; Translations: [Polyp of colon] Onset: 01-11-2024 Episodic Other circulatory disease (2 sources) Orthostatic hypotension; Translations: [Orthostatic hypotension] 12-03-2024 Episodic Other endocrine disorders (20 sources) Male hypogonadism; Translations: [Testicular hypofunction] Onset: 11-08-2022 11-08-2022 Chronic Other nervous system disorders (20 sources) Neuropathy; Translations: [Polyneuropathy, unspecified] Onset: 11-08-2022 11-08-2022 Chronic Other non-epithelial cancer of skin (9 sources) History of malignant basal cell neoplasm of skin; Translations: [Personal history of other malignant neoplasm of skin] 05-02-2024 Episodic Other nutritional; endocrine; and metabolic disorders (20 sources) Hypervitaminosis A; 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] Onset: 11-08-2022 11-08-2022 Chronic Other skin disorders (4 sources) Actinic keratosis; Translations: [Actinic keratosis] 05-02-2024 Episodic Other skin disorders (4 sources) Lentiginosis; Translations: [Other melanin hyperpigmentation] 05-02-2024 Episodic Other skin disorders (4 sources) Seborrheic keratosis; Translations: [Other seborrheic keratosis] 05-02-2024 Episodic Other skin disorders (2 sources) Inflamed seborrheic keratosis; Translations: [Inflamed seborrheic keratosis] 11-04-2024 Episodic [place]-; endo-; and myocarditis; cardiomyopathy (except that caused by tuberculosis or sexually transmitted disease) (4 sources) Cardiomyopathy; Translations: [Cardiomyopathy, unspecified] 01-29-2024 Chronic Screening and history of mental health and substance abuse codes (1 source) Ex-smoker; Translations: [Personal history of tobacco use] Episodic Comment on above: Quit in 2008; Unclassified (4 sources) Patient encounter status 12-22-2023 Viral infection (4 sources) Herpes zoster; Translations: [Zoster with other complications] 01-29-2024 Episodic Past or Other Problems Problem Classification Problem Date Documented Date Episodic/Chronic Acute bronchitis (20 sources) Acute bronchitis; Translations: [Acute bronchitis, unspecified] Onset: 03-28-2013 02-02-2023 Episodic Diabetes mellitus without complication (20 sources) Impaired fasting glycemia; Translations: [Impaired fasting glucose] Onset: 02-27-2023 07-27-2023 Episodic Fluid and electrolyte disorders (20 sources) Disorder of electrolytes; Translations: [Other disorders of electrolyte and fluid balance, not elsewhere classified] Onset: 05-04-2022 11-08-2022 Episodic Genitourinary symptoms and ill-defined conditions (20 sources) Nocturia; Translations: [Nocturia] Onset: 01-17-2022 Episodic Mood disorders (20 sources) Mood disorders Onset: 11-08-2022 Resolved: 10-03-2024 11-08-2022 Nonspecific chest pain (20 sources) Chest pain; Translations: [Chest pain, unspecified] Onset: 06-05-2023 07-27-2023 Episodic Other and unspecified benign neoplasm (20 sources) History of polyp of colon; Translations: [Personal history of colonic polyps] Onset: 12-22-2023 Episodic Other hematologic conditions (20 sources) Red blood cell disorder; Translations: [Other abnormality of red blood cells] Onset: 11-08-2022 11-08-2022 Episodic Other hematologic conditions (1 source) Other abnormality of red blood cells; Translations: [Other abnormality of red blood cells] Onset: 06-11-2024 Episodic Other lower respiratory disease (20 sources) Other forms of dyspnea; Translations: [Other respiratory abnormalities] Onset: 10-24-2022 02-02-2023 Episodic Other screening for suspected conditions (not mental disorders or infectious disease) (20 sources) Abnormal electrocardiogram [ECG] [EKG]; Translations: [Screening for malignant neoplasm of colon done] Onset: 05-30-2022 Episodic Other upper respiratory infections (20 sources) Upper respiratory infection; Translations: [Acute upper respiratory infection, unspecified] Onset: 11-08-2022 11-08-2022 Episodic Residual codes; unclassified (20 sources) At risk for infection; Translations: [Personal history of immunosupression therapy] Onset: 12-30-2019 02-02-2023 Episodic Urinary tract infections (20 sources) Pyelonephritis; Translations: [Tubulo-interstitial nephritis, not specified as acute or chronic] Onset: 12-09-2009 11-08-2022 Episodic Results Test Name Value Interpretation Reference Range Facility ALL CBC WITH AUTO DIFFon BASOPHILS ABSOLUTE AUTO 0 [facility] Basophils/100 WBC (Bld) 0.5 % 0.2 - 2.0 % [facility] Eosinophils/100 WBC (Bld) 1.7 % 0.9 - 7.0 % [facility] Erythrocyte distribution width (RBC) [Ratio] 14.6 % 11.0 - 15.0 % [facility] Hematocrit (Bld) [Volume fraction] 47.4 % 42.0 - 54.0 % [facility] Hemoglobin (Bld) [Mass/Vol] 15.4 g/dL 14.0 - 18.0 g/dL [facility] IMMATURE GRANULOCYTES ABS AUTO 0.02 [facility] Immature granulocytes/100 WBC (Bld) 0.3 % 0.0 - 0.5 % [facility] Interpretation and review of laboratory results Abnormal [facility] LYMPHOCYTES ABSOLUTE AUTO 1.1 Low [facility] Lymphocytes/100 WBC (Bld) 16.9 % Low 20.5 - 60.0 % [facility] MCH (RBC) [Entitic mass] 28.7 pg 25.9 - 34.0 pg [facility] MCHC (RBC) [Mass/Vol] 32.5 g/dL 29.9 - 35.2 g/dL [facility] MCV (RBC) [Entitic vol] 88.4 fL 80.0 - 94.0 fL [facility] MONOCYTES ABSOLUTE AUTO 0.6 [facility] Monocytes/100 WBC (Bld) 9.6 % 1.7 - 12.0 % [facility] NEUTROPHILS ABSOLUTE AUTO 4.5 [facility] Neutrophils/100 WBC (Bld) 71 % 43.0 - 75.0 % [facility] Platelet mean volume (Bld) [Entitic vol] 10.3 fL 9.5 - 13.5 fL [facility] TBH EO # 0.1 [facility]H PLT 202 [facility] RBC 5.36 [facility] WBC 6.4 [facility] Panel Informationon 11-04 Type of biopsy: shirley ential Informed consent: discussed and consent obtained Informed [...] taken Amount of lidocaine used: 1.0 cc [facility] [employer] Type of biopsy: shirley ential Informed consent: discussed and consent obtained Informed [...] taken Amount of lidocaine used: 1.[address] [facility] [employer] Type of biopsy: shirley ential Informed consent: discussed and consent obtained Informed [...] taken Amount of lidocaine used: 1.0 cc [facility] [employer] [facility] [employer] Type of biopsy: shirley ential Informed consent: discussed and consent obtained Informed [...] Photo taken Amount of lidocaine used: 1.0 [facility] [employer] [facility] Follow-Upon 10-17-2024 Follow-Up [id number] Waldemar Duke 1960 M Date Provider Department [place] 10/17/2024 [id number] DALY None Family History Problem Relation Age of Onset Alzheimer's disease Mother Coronary artery disease Father Family Status - Relation Status Age at Mother Father Level of Service:36530 HI OFFICE/OUTPATIENT ESTABLISHED MOD MDM 30 MIN Reason for Visit and Comments: Kidney Follow-up [[id number]] - Patient has no concerns at this time. Normal [facility] Office Visiton 10-17-2024 Follow-up visit [id number] Waldemar Duke D 1960 M Date Provider Department Center 10/17/2024 271-[facility] CARD Andreea Blackwood Family History Problem Relation Age of Onset Alzheimer's disease Mother Coronary artery disease Father Family Status - Relation Status Age at Mother Father Level of Service:42452 HI OFFICE/OUTPATIENT ESTABLISHED LOW MDM 20 MIN Normal [facility] CA ECHO DOPPLER COMPLETEon 0 10-15-[address] [facility] [address] [place] [address] Cardiology Report Signed Patient: VISHAL DUKE MR#: [id number] : 1960 Acct:[id number] Age/Sex: 63 / M ADM Date: 10/15/24 Loc: CARD Attending Dr: Federico Chester M.D. Ordering Physician: Federico Chester M.D. Date of Service: 10/15/24 Procedure(s): CA echo doppler complete Accession Number(s): [id number] cc: Federico Chester M.D.; ROSA M GONZALES Patient Name: VISHAL DUKE MR#: [id number] : 1960 Exam Date: 10/15/2024 Ordering Doctor: DR FEDERICO CHESTER M.D. ECHOCARDIOGRAM REPORT PROCEDURE: CA ECHO DOPPLER [...] Ao Diam: Aortic Valve AoV Area (Peak Adam): 4.29 cm2, 4.29 cm2 AoV Area (VTI): 3.55 cm2, 3.55 cm2 Deceleration [place]: 0.90 m/s2 Pressure Half-Time: 1.03 s Peak Velocity(Antegrade Flow): 1.03 m/s Peak Gradient(Antegrade Flow): 4.25 m (more content not included)... [facility] Radiology, Radiologi MD elizabeth - 10/15/2024 [place] [address] Cardiology Report Signed Patient: VISHAL DUKE MR#: [id number] : 1960 Acct:[id number] Age/Sex: 63 / M ADM Date: 10/15/24 Loc: CARD Attending Dr: Federico Chester M.D. Ordering Physician: Federico Chester M.D. Date of Service: 10/15/24 Procedure(s): CA echo doppler complete Accession Number(s): [id number] cc: Federico Chester M.D.; ROSA M GONZALES Patient Name: VISHAL DUKE MR#: [id number] : 1960 Exam Date: 10/15/2024 Ordering Doctor: DR FEDERICO CHESTER M.D. ECHOCARDIOGRAM REPORT PROCEDURE: CA ECHO DOPPLER [...] Ao Diam: Aortic Valve AoV Area (Peak Adam): 4.29 cm2, 4.29 cm2 AoV Area (VTI): 3.55 cm2, 3.55 cm2 Deceleration [place]: 0.90 m/s2 Pressure Half-Time: 1.03 s Peak [...] Dictated By: Rozina Loza M.D. Signed By: 10/15/241432 DD/ 31 TD/TT: Refrigerated Cargo Clerk: [facility] Radiology Study observation (narrative) [facility] CA ECHO DOPPLER COMPLETEOrde red By: Radiologist Radiology on 10-15-2024 [facility] Work Phone: ALL MAGNESIUMon 10-14-2024 Magnesium [Mass/Vol] 1.7 mg/dL Low 1.8 - 2 .4 mg/dL [facility] ALL PHOSPHOROUSon 10-14-2024 Phosphate [Mass/Vol] 3.4 mg/dL 2.6 - 4 .7 mg/dL [facility] ALL URIC ACIDon 10-14-2024 Urate [Mass/Vol] 6.7 mg/dL 3.5 - 7.2 mg/dL [facility] CCF CMP (CMP) (FOR REMOTE FH C USE)on 10-14-2024 Albumin [Mass/Vol] 3.6 g/dL 3.4 - 5.0 g/dL [facility] ALBUMIN GLOBULIN RATIO 1.2 [facility] ALP [Catalytic activity/Vol] 94 U/L 46 - 116 U/L [facility] ALT [Catalytic activity/Vol] 29 U/L 16 - 63 U/L [facility] Anion gap [Moles/Vol] 16.1 mmol/L [facility] AST [Catalytic activity/Vol] 18 U/L 15 - 37 U/L [facility] Bilirubin [Mass/Vol] 0.6 mg/dL 0.2 - 1 .0 mg/dL [facility] Calcium [Mass/Vol] 9.1 mg/dL 8.5 - 10. 1 mg/dL [facility] Chloride [Moles/Vol] 107 mmol/L 98 - 10 7 mmol/L [facility] CO2 [Moles/Vol] 26.3 mmol/L 21.0 - 32.0 mmol/L [facility] Creatinine [Mass/Vol] 1.29 mg/dL 0.70 - 1.30 mg/dL [facility] GFR/1.73 sq M.predicted CKD-EPI (S/P/Bld) [Vol rate/Area] >60 >=60 mL/min/1.7 3m 2 [facility] Globulin (S) [Mass/Vol] 3.1 g/dL [facility] Glucose [Mass/Vol] 133 mg/dL High 74 - 106 mg/dL [facility] Potassium [Moles/Vol] 4.4 mmol/L 3.5 - 5.1 mmol/L [facility] Protein [Mass/Vol] 6.7 g/dL 6.4 - 8.2 g/dL [facility] Sodium [Moles/Vol] 145 mmol/L 136 - 145 mmol/L [facility] TBH EGFR-NON AF ESTONIAN 56 Low >=60 mL/min/1.7 3m 2 [facility] Urea nitrogen [Mass/Vol] 21 mg/dL High 7.0 - 18.0 mg/dL [facility] Urea nitrogen/Creatinine [Mass ratio] 16.3 mg/mg [facility] METRO BILIRUBIN, DIRECTon Bilirubin.indirect [Mass/Vol] 0.1 mg/dL 0.0 - 0.2 mg/dL [facility] No Panel Informationon 10-14 Interpretation and review of laboratory results Abnormal [facility] No Panel Informationon 10-03 Interpretation and review of laboratory results Abnormal [facility] Office Visiton 09-18-2024 Follow-up visit [id number] Waldemar Duke 1960 M Date Provider Department Center 09/18/2024 [facility] Family History Problem Relation Age of Onset Alzheimer's disease Mother Coronary artery disease Father Family Status - Relation Status Age at Mother Father Level of Service:69831 HI OFFICE/OUTPATIENT ESTABLISHED MOD MDM 30 MIN Normal [facility] ALL CBC WITH AUTO DIFFon BASOPHILS ABSOLUTE AUTO 0 [facility] Basophils/100 WBC (Bld) 0.6 % 0.2 - 2.0 % [facility] Eosinophils/100 WBC (Bld) 1 % 0.9 - 7.0 % [facility] Erythrocyte distribution width (RBC) [Ratio] 14.2 % 11.0 - 15.0 % [facility] Hematocrit (Bld) [Volume fraction] 48 % 42.0 - 54.0 % [facility] Hemoglobin (Bld) [Mass/Vol] 15.4 g/dL 14.0 - 18.0 g/dL [facility] IMMATURE GRANULOCYTES ABS AUTO 0.01 [facility] Immature granulocytes/100 WBC (Bld) 0.1 % 0.0 - 0.5 % [facility] Interpretation and review of laboratory results Abnormal [facility] LYMPHOCYTES ABSOLUTE AUTO 1 Low [facility] Lymphocytes/100 WBC (Bld) 15.2 % Low 20.5 - 60.0 % [facility] MCH (RBC) [Entitic mass] 28.7 pg 25.9 - 34.0 pg [facility] MCHC (RBC) [Mass/Vol] 32.1 g/dL 29.9 - 35.2 g/dL [facility] MCV (RBC) [Entitic vol] 89.4 fL 80.0 - 94.0 fL [facility] MONOCYTES ABSOLUTE AUTO 0.7 [facility] Monocytes/100 WBC (Bld) 10.6 % 1.7 - 12.0 % [facility] NEUTROPHILS ABSOLUTE AUTO 4.9 [facility] Neutrophils/100 WBC (Bld) 72.5 % 43.0 - 75.0 % [facility] Platelet mean volume (Bld) [Entitic vol] 10.3 fL 9.5 - 13.5 fL [facility] TBH EO # 0.1 [facility] TBH PLT 234 [facility] RBC 5.37 [facility] WBC 6.7 [facility] ALL CBC WITH AUTO DIFFon BASOPHILS ABSOLUTE AUTO 0 [facility] Basophils/100 WBC (Bld) 0.6 % 0.2 - 2.0 % [facility] Eosinophils/100 WBC (Bld) 1.4 % 0.9 - 7.0 % [facility] Erythrocyte distribution width (RBC) [Ratio] 13.4 % 11.0 - 15.0 % [facility] Hematocrit (Bld) [Volume fraction] 47 % 42.0 - 54.0 % [facility] Hemoglobin (Bld) [Mass/Vol] 15.2 g/dL 14.0 - 18.0 g/dL [facility] IMMATURE GRANULOCYTES ABS AUTO 0.02 [facility] Immature granulocytes/100 WBC (Bld) 0.3 % 0.0 - 0.5 % [facility] Interpretation and review of laboratory results Abnormal [facility] LYMPHOCYTES ABSOLUTE AUTO 1.1 Low [facility] Lymphocytes/100 WBC (Bld) 16.3 % Low 20.5 - 60.0 % [facility] MCH (RBC) [Entitic mass] 29.2 pg 25.9 - 34.0 pg [facility] MCHC (RBC) [Mass/Vol] 32.3 g/dL 29.9 - 35.2 g/dL [facility] MCV (RBC) [Entitic vol] 90.2 fL 80.0 - 94.0 fL [facility] MONOCYTES ABSOLUTE AUTO 0.7 [facility] Monocytes/100 WBC (Bld) 10.4 % 1.7 - 12.0 % [facility] NEUTROPHILS ABSOLUTE AUTO 4.6 [facility] Neutrophils/100 WBC (Bld) 71 % 43.0 - 75.0 % [facility] Platelet mean volume (Bld) [Entitic vol] 10.4 fL 9.5 - 13.5 fL [facility] EO # 0.1 [facility] PLT 258 [facility] RBC 5.21 [facility] WBC 6.4 [facility] Destr of lesionon 06-19-2024 Complexity: simple Destruction method: electrodesiccation and curettage Informed consent: discussed and consent obtained Informed consent comment: The risks of the procedure were discussed, including, but not limited to risks of scarring, darker or butt sawyer pigmentary changes, recurrence, infection, and incomplete removal Timeout: patient name, date of , surgical site, and procedure verified Timeout comment: Patient and provider identified site. Site was marked. Photo was taken and shown to patient, patient verified this is the correct site. Procedure prep: Patient was prepped and draped in usual sterile fashion Prep type: Chlorhexidine Anesthesia: the lesion was anesthetized in a standard fashion Anesthetic: 1% lidocaine w/ epinephrine 1-100,000 buffered w/ 8.4% NaHCO3 Curettage performed in three different directions: Yes Electrodesiccation performed over the curetted area: Yes Curettage cycles: 3 Lesion length (cm): 1 Lesion width (cm): 1 Margin per side (cm): 0 Final wound size (cm): 1 Hemostasis achieved with: electrodesiccation Outcome: patient tolerated procedure well with no complications Post-procedure details: wound care instructions given Post-procedure details comment: Post-procedure instructions were given verbally and in writing. The office will be contacted if the lesion fails to resolve despite treatment, or if a side effect develops such as abnormal crusting, scabbing, reddness, discharge, or tenderness. Additional details: Amount of lidocaine used: 2.0 cc Previous accession number: [id number] [facility] Destr of lesionOrdered By: Andrew Salvador on 06-19-2024 [facility] No Panel Informationon 06-13 Consent obtained: esa epps (The rationale for Mohs as well as the risks, benefits, and alternatives. The risks of infection, scarring, bleeding, prolonged wound healing, incomplete removal, allergy to anesthesia or meds, nerve injury, and recurrence were addressed.) [place] Protocol: Procedure explained and questions answered to patient or proxy's satisfaction: Yes Test results available and properly labeled: Yes Pathology report reviewed: Yes Photo or diagram used for site identification: Yes Site/side marked: Yes Anticoagulation: Is the patient taking prescription anticoagulant and/or aspirin prescribed/recommended by a physician? Yes (81 mg ASA, Plavix) Was the anticoagulation regimen changed prior to Mohs? No Anesthesia: Anesthesia method: local infiltration Local anesthetic: lidocaine 1% WITH epi and sodium bicarbonate Procedure Details: Biopsy accession number: [id number] Biopsy lab: [facility] Date of biopsy: 05/02/2024 Frozen section biopsy performed: Yes Specimen debulked: No Pre-Op diagnosis: squamous cell carcinoma MohsAIQ Surgical site (if tumor spans multiple areas, please select predominant area): quaker Surgery side: left Surgical site (from skin exam): Left Pentecostal Pre-operative length (cm): 0.8 Pre-operative width (cm): 0.8 Indications for Mohs surgery: anatomic location where tissue conservation is critical and immunocompromised Previously treated? No Mohs Appropriate Use Criteria Score: 8 Details of micrographic surgery: Mohs accession number: [id number] Micrographic Surgery Details: Post-operative length (cm): 1.5 Post-operative width (cm): 1.5 Number of Mohs stages: 1 Stage 1 Comments: The area was prepped with Betadine, draped in a sterile fashion, and infiltrated with local anesthetic. Sterile technique was used throughout the procedure. The marked area of clinical tumor with a small rim of clinically normal surrounding skin was removed using Mohs technique with beveled edges. Hash banks were placed for orientation of the specimen. Hemostasis was achieved with electrodessication. After hemostasis, the defect was measured and recorded, a temporary sterile dressing was placed over the wound, and the patient was escorted to the waiting area. The specimen was oriented, mapped, and if necessary, divided into sections. A Mohs map was prepared. The specimen was placed in a labeled jeremiah dish and was taken to the Mohs lab where it was chromacoded and processed. Mohs sections were prepared with serial tissue sections, stained, and evaluated by Dr. Centeno for interpretation of deep and peripheral margins. The Mohs map was marked accordingly. Amount of lidocaine used: 2.0 cc Estimated blood loss: < 1.0 cc Defect size: 1.5 x 1.5 cm Number of blocks per stage: 1 Number of positive blocks: 0. Tumor free margins were obtained and the Mohs procedure was considered complete. Tumor features identified on Mohs section: no tumor identified Depth of defect after stage: dermis Patient tolerance of procedure: tolerated well, no immediate complications Reconstruction: Was the defect reconstructed?: No Antibiotics: Were antibiotics given on the day of surgery?: No [facility] No Panel InformationOrdered By: Avelina Pena on 06-13-2024 [facility] Orders Onlyon 06-12-2024 Orders Only [id number] Waldemar Duke 1960 M Date Provider Department Center 06/12/2024 Butch-[facility]ACH[facility] 2A Second Fl Family History Problem Relation Age of Onset Alzheimer's disease Mother Coronary artery disease Father Family Status - Relation Status Age at Mother Father Normal [facility] Documentationon 06-11-2024 Documentation [id number] Waldemar Duke 1960 M Date Provider Department [place] 06/11/2024 [id number] BLAS None Family History Problem Relation Age of Onset Alzheimer's disease Mother Coronary artery disease Father Family Status - Relation Status Age at Mother Father Normal [facility] MLR HEMOGLOBIN A1Con 025 Glucose [Mass/Vol] 131 mg/dL [facility] HbA1c (Bld) [Mass fraction] 6.2 % 4.5 - 6.2 % [facility] Comment on above: ADA RECOMMENDED LIMI T 4.0 - 6.0 ADA THERAPEUTIC TARGET < 7.0 ACTION SUGGESTED > 7.0 [facility] ALL CBC WITH AUTO DIFFon BASOPHILS ABSOLUTE AUTO 0 [facility] Basophils/100 WBC (Bld) 0.6 % 0.2 - 2.0 % [facility] Eosinophils/100 WBC (Bld) 1.6 % 0.9 - 7.0 % [facility] Erythrocyte distribution width (RBC) [Ratio] 13.2 % 11.0 - 15.0 % [facility] Hematocrit (Bld) [Volume fraction] 46.2 % 42.0 - 54.0 % [facility] Hemoglobin (Bld) [Mass/Vol] 15.1 g/dL 14.0 - 18.0 g/dL [facility] IMMATURE GRANULOCYTES ABS AUTO 0.02 [facility] Immature granulocytes/100 WBC (Bld) 0.3 % 0.0 - 0.5 % [facility] Interpretation and review of laboratory results Abnormal [facility] LYMPHOCYTES ABSOLUTE AUTO 1 Low [facility] Lymphocytes/100 WBC (Bld) 16 % Low 20.5 - 60.0 % [facility] MCH (RBC) [Entitic mass] 30.6 pg 25.9 - 34.0 pg [facility] MCHC (RBC) [Mass/Vol] 32.7 g/dL 29.9 - 35.2 g/dL [facility] MCV (RBC) [Entitic vol] 93.5 fL 80.0 - 94.0 fL [facility] MONOCYTES [facility]OLUTE AUTO 0.6 [facility] Monocytes/100 WBC (Bld) 9.3 % 1.7 - 12.0 % [facility] NEUTROPHILS ABSOLUTE AUTO 4.5 [facility] Neutrophils/100 WBC (Bld) 72.2 % 43.0 - 75.0 % [facility] Platelet mean volume (Bld) [Entitic vol] 10.2 fL 9.5 - 13.5 fL [facility] EO # 0.1 [facility] PLT 208 [facility] RBC 4.94 [facility] WBC 6.3 [facility] No Panel Informationon 05-02 Type of biopsy: shirley ential Informed consent: discussed and consent obtained Informed [...] taken Amount of lidocaine used: 1.0 cc [facility] Type of biopsy: shirley ential Informed consent: discussed and consent obtained Informed [...] taken Amount of lidocaine used: 1.0 cc [facility] Type of biopsy: shirley ential Informed consent: discussed and consent obtained Informed [...] details: Photo taken Amount of lidocaine used: 0.5 cc [facility] Follow-Upon 04-11-2024 Follow-Up [id number] Waldemar Duke 1960 M [facility] Provider Department [place] 04/11/2024 [id number] MOON None Family History Problem Relation Age of Onset Alzheimer's disease Mother Coronary artery disease Father Family Status - Relation Status Age at Mother Father Level of Service:87256 HI OFFICE/OUTPATIENT ESTABLISHED MOD MDM 30 MIN Reason for Visit and Comments: Kidney Follow-up [[id number]] - Pt has no concerns at this time. Normal [facility] ALL CBC WITH AUTO DIFFon BASOPHILS ABSOLUTE AUTO 0 [facility] Basophils/100 WBC (Bld) 0.6 % 0.2 - 2.0 % [facility] Eosinophils/100 WBC (Bld) 1.4 % 0.9 - 7.0 % [facility] Erythrocyte distribution width (RBC) [Ratio] 13.9 % 11.0 - 15.0 % [facility] Hematocrit (Bld) [Volume fraction] 47.3 % 42.0 - 54.0 % [facility] Hemoglobin (Bld) [Mass/Vol] 15.7 g/dL 14.0 - 18.0 g/dL [facility] IMMATURE GRANULOCYTES ABS AUTO 0.02 [facility] Immature granulocytes/100 WBC (Bld) 0.3 % 0.0 - 0.5 % [facility] Interpretation and review of laboratory results Abnormal [facility] LYMPHOCYTES ABSOLUTE AUTO 1.2 [facility] Lymphocytes/100 WBC (Bld) 18.6 % Low 20.5 - 60.0 % [facility] MCH (RBC) [Entitic mass] 31.1 pg 25.9 - 34.0 pg [facility] MCHC (RBC) [Mass/Vol] 33.2 g/dL 29.9 - 35.2 g/dL [facility] MCV (RBC) [Entitic vol] 93.7 fL 80.0 - 94.0 fL [facility] MONOCYTES ABSOLUTE AUTO 0.6 [facility] Monocytes/100 WBC (Bld) 10.1 % 1.7 - 12.0 % [facility] NEUTROPHILS ABSOLUTE AUTO 4.3 [facility] Neutrophils/100 WBC (Bld) 69 % 43.0 - 75.0 % [facility] Platelet mean volume (Bld) [Entitic vol] 10.2 fL 9.5 - 13.5 fL [facility] TBH EO # 0.1 [facility] TB PLT 230 [facility] RBC 5.05 [facility] WBC 6.2 [facility] HbA1c (Bld) [Mass fraction]o n 03-21-2024 Interpretation and review of laboratory results Normal [facility] Laboratory - Hematology and Cell countson 03-21-2024 HbA1c (Bld) [Mass fraction] 6.4 % [facility] Office Visiton 03-18-2024 Follow-up visit [id number] Waldemar Duke 1960 M Date Provider Department Center 03/18/2024 [facility] [facility] Andreea Blackwood Family History Problem Relation Age of Onset Alzheimer's disease Mother Coronary artery disease Father Family Status - Relation Status Age at Mother Father Level of Service:[id number] HI OFFICE/OUTPATIENT ESTABLISHED LOW MDM 20 MIN Normal [facility] ALL CBC WITH AUTO DIFFon BASOPHILS ABSOLUTE AUTO 0 [facility] Basophils/100 WBC (Bld) 0.6 % 0.2 - 2.0 % [facility] Eosinophils/100 WBC (Bld) 1.5 % 0.9 - 7.0 % [facility] Erythrocyte distribution width (RBC) [Ratio] 14.5 % 11.0 - 15.0 % [facility] Hematocrit (Bld) [Volume fraction] 49.5 % 42.0 - 54.0 % [facility] Hemoglobin (Bld) [Mass/Vol] 16.3 g/dL 14.0 - 18.0 g/dL [facility] IMMATURE GRANULOCYTES ABS AUTO 0.02 [facility] Immature granulocytes/100 WBC (Bld) 0.3 % 0.0 - 0.5 % [facility] Interpretation and review of laboratory results Abnormal [facility] LYMPHOCYTES ABSOLUTE AUTO 0.9 Low [facility] Lymphocytes/100 WBC (Bld) 14.3 % Low 20.5 - 60.0 % [facility] MCH (RBC) [Entitic mass] 30.5 pg 25.9 - 34.0 pg [facility] MCHC (RBC) [Mass/Vol] 32.9 g/dL 29.9 - 35.2 g/dL [facility] MCV (RBC) [Entitic vol] 92.7 fL 80.0 - 94.0 fL [facility] MONOCYTES ABSOLUTE AUTO 0.6 [facility] Monocytes/100 WBC (Bld) 8.5 % 1.7 - 12.0 % [facility] NEUTROPHILS ABSOLUTE AUTO 4.9 [facility] Neutrophils/100 WBC (Bld) 74.8 % 43.0 - 75.0 % [facility] Platelet mean volume (Bld) [Entitic vol] 10.3 fL 9.5 - 13.5 fL [facility] TBH EO # 0.1 [facility] TBH PLT 213 [facility] RBC 5.34 [facility] WBC 6.6 [facility] Ambulatory Visit Summary05-04-2023 Ambulatory Visit Summary Ambulatory Visit Summary VISHAL [...] for choosing us for your care. Normal [facility] Reminderson 03-04-2024 Reminders Reminders From: Marie Lobato To: EU - Administrative; Sent: 03/04/2024 15:07:27 EST Show up: 05/18/2025 15:07:00 EST Subject: Ambulatory Reminder Due Date/Time: 03/01/2026 15:07:00 EST Reminder/Recall Patient needs scheduled with PRW for a 2 yr f/u with PSA, due back in February of 2026 Normal [facility] Urology Office/Clinic Noteon 03-04-2024 Urology Office/Clinic Note [...] 01/01/18. 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 Bobby Maldonado. Per pt, kidney [...] URL [facility] [address], [place] [address] [phone] Additional Instructions: 2 yrs w/ PSA Patient Education Benign Prostatic Hyperplasia I, Esther Pan, personally scribed for Dr. Brower on 03/04/2024 15:02:32. . Documentation recorded by the scribEsther gordon, accurately reflects the services(s) I performed and [...] virus vaccine, (more content not included)... Normal [facility] Comment on above: Result Comment: Elec tronically Signed By: Reji BROWER MD\.br\Date and Time Signed: 03/04/24 15:03 EST\.br\Electronically Co-Signed By: Esther Pan.br\Date and Time Co-Signed: 03/04/24 15:02 EST Documentationon 02-02-2024 Documentation [id number] Waldemar Duke 1960 M Date Provider Department Center 02/02/2024 [id number], PB TXP None Family History Problem Relation Age of Onset Alzheimer's disease Mother Coronary artery disease Father Family Status - Relation Status Age at Mother Father [facility] ALL CBC WITH AUTO DIFFon BASOPHILS ABSOLUTE AUTO 0 [facility] Basophils/100 WBC (Bld) 0.5 % 0.2 - 2.0 % [facility] Eosinophils/100 WBC (Bld) 1 % 0.9 - 7.0 % [facility] Erythrocyte distribution width (RBC) [Ratio] 13.6 % 11.0 - 15.0 % [facility] Hematocrit (Bld) [Volume fraction] 50.4 % 42.0 - 54.0 % [facility] Hemoglobin (Bld) [Mass/Vol] 17 g/dL 14.0 - 18.0 g/dL [facility] IMMATURE GRANULOCYTES ABS AUTO 0.03 [facility] Immature granulocytes/100 WBC (Bld) 0.4 % 0.0 - 0.5 % [facility] Interpretation and review of laboratory results Abnormal [facility] LYMPHOCYTES ABSOLUTE AUTO 0.9 Low [facility] Lymphocytes/100 WBC (Bld) 11.7 % Low 20.5 - 60.0 % [facility] MCH (RBC) [Entitic mass] 30.5 pg 25.9 - 34.0 pg [facility] MCHC (RBC) [Mass/Vol] 33.7 g/dL 29.9 - 35.2 g/dL [facility] MCV (RBC) [Entitic vol] 90.3 fL 80.0 - 94.0 fL [facility] MONOCYTES ABSOLUTE AUTO 0.8 [facility] Monocytes/100 WBC (Bld) 10.6 % 1.7 - 12.0 % [facility] NEUTROPHILS ABSOLUTE AUTO 5.6 [facility] Neutrophils/100 WBC (Bld) 75.8 % High 43.0 - 75.0 % [facility] Platelet mean volume (Bld) [Entitic vol] 10.3 fL 9.5 - 13.5 fL [facility] TBH EO # 0.1 [facility] TBH PLT 189 [facility] TB RBC 5.58 [facility] TBH WBC 7.4 [facility] 36on 01-29-2024 36 Transplant Pharmacis t - [...] off at this time. Guero Lee, AlexandreD, [facility] Solid Organ Transplant Clinical Pharmacist Normal [facility] Telephoneon 01-29-2024 Telephone [id number] Waldemar Duke 1960 [facility] Provider Department [place] 01/29/2024 3915-BINA GUERO TXP None Family History Problem Relation Age of Onset Alzheimer's disease Mother Coronary artery disease Father Family Status - Relation Status Age at Mother Father Reason for Visit and Comments: Transplant Pharmacist - Drug Information [[id number]] Normal [facility] MHPT PSA, DIAGNOSTICon 01-24 PROSTATE SPECIFIC ANTIGEN DX 0.91 ng/mL NINF - 4.00 ng/mL [facility] Result Letter Officeon 01-22 Result Letter Office Result Letter Offic e January 23, 2024 VISHAL DUKE [address] [place] [id number] : 1960 Below is a summary of [...] letter prior to your next due date. [facility] [phone] Normal [facility] Surgical Pathology Reporton 01-17-2024 Surgical Pathology Report [facility] [address] [place] [address]- Surgical Pathology Report Collected Date/Time: 01/11/2024 09:34 [...] characteristics were determined by the Laboratory of [facility]. They have not been cleared or approved by the US Food and Drug Administration. The FDA has determined that such clearance or approval is not necessary. These tests are used for clinical purposes. They should not be regarded as investigational or for research. Appropriate positive and negative controls are performed and are acceptable. Normal [facility] Comment on above: Performed By: #### [id number] #### [facility] Laboratory [address] [place] [address] Main OR Intraoperative Recor don 01-12-2024 Main OR Intraoperative Record Main OR Intraoperative Record IntraOp Document Type FT Summary Primary Physician: Xochilt Graham MD Finalized Date/Time: 01/12/24 11:15:33 Pt. Name: VISHAL DUKE/Sex: 1960 Male Med Rec #: [id number] Physician: Xochilt Graham MD Financial #: [id number] Pt. Type: O Room/Bed: / Admit/Disch: 01/11/24 [...] 2 Entry 3 Case Attendee Nick MONTEMAYOR, DIP BRAZIER, Queen Nicky GODWIN, Monie Guzman Role Performed DIP BRAZIER Body Straightener - Primary Scrub - Primary Time In [...] Performed Staff - Other Surgeon - Primary DIP BRAZIER Time In 01/11/24 09:34:00 01/11/24 09:24:00 01/11/24 [...] of physic (more content not included)... Normal [facility] Discharge Instructionson Discharge Instructions Discharge Instructions VISHAL [...] FRANK, Reji Farrell Where: [facility] [address] [place] [address]- New Follow Up Appointments after Discharge Follow Up with Gladys FRANK, JIN Saez, [facility] When: Comments: Call for any [...] the a (more content not included)... Normal [facility] Comment on above: Result Comment: Elec tronically Signed By: Maria Victoria Zaman I\.br\Date and Time Signed: 01/11/24 10:21 EDT Inpatient Patient Summaryon 01-11-2024 Inpatient Patient Summary Inpatient Patient Summary [place] [address] [facility] Clinical Discharge Instructions PERSON INFORMATION Name: VISHAL DUKE PHYSICIANS Admitting Physician: Xochilt Graham MD Attending Physician: Xochilt Graham MD PCP: ROSA M GONZALES MD Discharge Diagnosis: Chronic GERD; Colon polyps Comment: PATIENT EDUCATION INFORMATION Instructions: Medication Leaflets: Follow up: Type Location Start Finish State [place] Office Visit [facility] [place] 01/29/2024 10:30 AM 01/29/2024 10:45 AM [...] a day. tacrolimus 1 Milligram. Comment: Nida [facility] Main OR PACU II Recordon Main OR PACU II Record Main OR PACU II Record PACU Phase II Document Type FT Summary Primary Physician: Xochilt Graham MD Finalized Date/Time: 01/11/24 10:56:37 Pt. Name: VISHAL DUKE/Sex: 1960 Male Med Rec #: [id number] Physician: Xochilt Graham MD Financial #: [id number] Pt. Type: O Room/Bed: / Admit/Disch: 01/11/24 [...] By: Maria Victoria Zaman I 01/11/24 10:56 Normal [facility] Main OR Preoperative Recordo n 01-11-2024 Main OR Preoperative Record Main OR Preoperative Record Holding Area Document Type FT Summary Primary Physician: Xochilt Graham MD Finalized Date/Time: 01/11/24 09:12:50 Pt. Name: VISHAL DUKE/Sex: 1960 Male Med Rec #: [id number] Physician: Xochilt Graham MD Financial #: [id number] Pt. Type: O Room/Bed: / Admit/Disch: 01/11/24 [...] By: Stacey Hamilton RN 01/11/24 09:12 Normal [facility] Outpatient Surgery Discharge Instructionon 01-11-2024 Outpatient Surgery Discharge Instruction Outpatient Surgery Discharge Instruction [address] [address] Patient Discharge Instructions PERSON INFORMATION [...] Location Start Finish State [facility] Office Visit [facility] [place] 01/29/2024 10:30 AM 01/29/2024 10:45 AM Confirmed Pharmacy Information: You may receive a survey from [employer] asking you to rate your care experience. Your feedback is important and will help us understand what we do well and how we can improve the quality of care we provide to you, your loved ones and our community. It?s an honor to serve you. Thank you for choosing [facility] HERE ARE THE MEDICATION CHANGES THAT [...] Milligram. PATIENT EDUCATION INFORMATION Instructions: Medication Leaflets: [facility] ALL CBC WITH AUTO DIFFon BASOPHILS ABSOLUTE AUTO 0.0 [facility] Basophils/100 WBC (Bld) 0.6 % 0.2 - 2.0 % [facility] Eosinophils/100 WBC (Bld) 1.6 % 0.9 - 7.0 % [facility] Erythrocyte distribution width (RBC) [Ratio] 13.3 % 11.0 - 15.0 % [facility] Hematocrit (Bld) [Volume fraction] 48.4 % 42.0 - 54.0 % [facility] Hemoglobin (Bld) [Mass/Vol] 15.7 g/dL 14.0 - 18.0 g/dL [facility] IMMATURE GRANULOCYTES ABS AUTO 0.03 [facility] Immature granulocytes/100 WBC (Bld) 0.5 % 0.0 - 0.5 % [facility] Interpretation and review of laboratory results Abnormal [facility] LYMPHOCYTES ABSOLUTE AUTO 1.0 Low [facility] Lymphocytes/100 WBC (Bld) 15.2 % Low 20.5 - 60.0 % [facility] MCH (RBC) [Entitic mass] 30.3 pg 25.9 - 34.0 pg [facility] MCHC (RBC) [Mass/Vol] 32.4 g/dL 29.9 - 35.2 g/dL [facility] MCV (RBC) [Entitic vol] 93.4 fL 80.0 - 94.0 fL [facility] MONOCYTES ABSOLUTE AUTO 0.6 [facility] Monocytes/100 WBC (Bld) 9.7 % 1.7 - 12.0 % [facility] NEUTROPHILS ABSOLUTE AUTO 4.5 [facility] Neutrophils/100 WBC (Bld) 72.4 % 43.0 - 75.0 % [facility] Platelet mean volume (Bld) [Entitic vol] 10.8 fL 9.5 - 13.5 fL [facility] TB EO # 0.1 [facility] TB PLT [address] [facility] RBC 5.18 [facility] WBC 6.3 [facility] Ambulatory Visit Summaryon 0 12-25-2023 Ambulatory Visit [...] Appointments 2023 10:00 AM EDT With: Where: [facility] Surgical Services Monday 10:30 AM EDT With: LEONARDA FRANK, Reji Farrell Where: [facility] [place] [address]- Medications What How Much When Why Instructions [...] choosing us for your care. Normal [facility] Gastroenterology Office/Clin ic Noteon 12-25-2023 Gastroenterology Office/Clinic Note Gastroenterology Office/Clinic Note Chief Complaint Colonoscopy HPI Staff Patient is a(n) year old male who presents today for a 10 year colonoscopy recall. Denies Fhx colon cancer. Denies previous EGD. Hx hyperplastic polyps. Denies n/v/c/d, abd pain, bloody or mucus stools. Blood thinners? Plavix [facility] prescribes Plavix GLP-1 agonists? no Colonoscopy 02/04/2013 w/Dr. Cerrato: DIAGNOSIS: Two sigmoid polyps as described above, status post snare polypectomy. Pathology: Sigmoid colon, biopsy: Hyperplastic polyp History of Present Illness Doing well, occasional chest burning overnight resolves with nitro, he checked with her drain technician, does not seem to be cardiac [...] bedtime), # 90 tab(s), Refills(s) 0, Pharmacy: [facility], 177.8, cm, 12/25/23 9:23:00 EDT, Height/Length Dosing, 94.3, kg, 12/25/23 9:23:00 EDT, Weight Dosing Colonoscopy (Hospital Procedure) 2. History of colon polyps (Z86.010: Personal history of colonic polyps) Ordered: famotidine, 40 mg = 1 tab(s), Oral, Once a day (at bedtime), # 90 tab(s), Refills(s) 0, Pharmacy: [facility], 177.8, cm, 12/25/23 9:23:00 EDT, Height/Length Dosing, 94.3, kg, 12/25/23 9:23:00 EDT, Weight Dosing Colonoscopy (Hospital Procedure) 3. Kidney transplanted (Z94.0: Kidney transplant status) Due to PCOS, status post kidney transplant 2018 and recent resection of the polycystic kidneys due to pressure on organs Ordered: famotidine, 40 mg = 1 tab(s), Oral, Once a day (at bedtime), # 90 tab(s), Refills(s) 0, Pharmacy: [facility], 177.8, cm, 12/25/23 9:23:00 EDT, Height/Length [...] bedtime), # 90 tab(s), Refills(s) 0, Pharmacy: [facility], 177.8, cm, 12/25/23 9:23:00 EDT, Height/Length [...] bedtime), # 90 tab(s), Refills(s) 0, Pharmacy: [facility], 177.8, cm, 12/25/23 9:23:00 EDT, Height/Length [...] Mother. Immunizati (more content not included)... Normal [facility] Comment on above: Result Comment: Elec tronically Signed By: Gladys FRANK, Xochilt Butler\.br\Date and Time Signed: 12/25/23 09:51 EDT Office Visiton 11-20-2023 Follow-up visit [id number] Waldemar Duke 1960 M Date Provider Department Center 11/20/2023 [facility] Family History Problem Relation Age of Onset Alzheimer's disease Mother Coronary artery disease Father Family Status - Relation Status Age at Mother Father Level of Service:53785 HI OFFICE/OUTPATIENT ESTABLISHED MOD MDM 30 MIN Normal [facility] TACROLIMUS (FK506), BLOODon 05-31-2023 TACROLIMUS (FK506), BLOOD 5.5 ng/mL 2.0 - 20.0 ng/mL [facility] Comment on above: This test was develo ped and its performance characteristics determined by [facility]. It has not been cleared or approved by the Food and Drug Administration. Trough (immediately following transplant) 15.0 Trough (steady state, 2 weeks or more after transplant): 3.0 - 8.0 Performed by LC-MS/MS technology. Performed at: [address] [id number] Desktop Specialist: Evan Orozco MD, Phone: [phone] [facility] (TACROLIMUS) WHOLE BLO ODon 08-21-2022 Tacrolimus (FK506), Blood 6.0 ng/mL Normal 2.0-20.0 [facility] Comment on above: Result Comment: Trou gh (immediately following transplant) 15.0 . Trough (steady state, 2 weeks or more after transplant): 3.0 - 8.0 . Performed by LC-MS/MS technology. Performed By: #### P HOS, URIC, MG, CMP, DBIL, LIPID #### [facility] Laboratory [address] [place] [address] Dr. Karla Lagos BK VIRUS PCR QUANTon 023 BKV DNA QUANT PCR PLASMA Negative Normal Negative [facility] Comment on above: Result Comment: No B K DNA detected. . The linear range of the assay is 22 - 100,000,000 IU/mL. Performed By: #### P HOS, URIC, MG, CMP, DBIL, LIPID #### [facility] [address] [address] [address] Karla Lagos Log10 BKV DNA Plasma Normal [facility] Comment on above: Performed By: #### P HOS, URIC, MG, CMP, DBIL, LIPID #### [facility] [address] [address] [address] Karla Lagos BILIRUBIN CONJUGATED (DIRECT )on 08-18-2022 BILI, CONJUGATED 0.2 mg/dL Normal 0.0-0.2 [facility] Comment on above: Performed By: #### P HOS, URIC, MG, CMP, DBIL, LIPID #### [facility] [address] [place] [address] Dr. Karla Lagos CBC AUTO DIFFon 08-18-2022 BASO # 0.1 103/ul Normal 0.0-0.1 [facility] Comment on above: Performed By: #### P HOS, URIC, MG, CMP, DBIL, LIPID #### [facility] [address] [place] [address] Dr. Karla Lagos Basophils/100 WBC (Bld) 1.0 % Normal 0.2-2.0 [facility] Comment on above: Performed By: #### P HOS, URIC, MG, CMP, DBIL, LIPID #### [facility] [address] [place] [address] Dr. Karla Lagos EO # 0.1 103/ul Normal 0.0-0.7 [facility] Comment on above: Performed By: #### P HOS, URIC, MG, CMP, DBIL, LIPID #### [facility] [address] [place] [address] Dr. Karla Lagos Eosinophils/100 WBC (Bld) 1.3 % Normal 0.9-7.0 [facility] Comment on above: Performed By: #### P HOS, URIC, MG, CMP, DBIL, LIPID #### [facility] [address] [place] [address] Dr. Karla Lagos Erythrocyte distribution width (RBC) [Ratio] 14.0 % Normal 11.0-15.0 [facility] Comment on above: Performed By: #### P HOS, URIC, MG, CMP, DBIL, LIPID #### [facility] [address] [place] [address] Dr. Karla Lagos Hematocrit (Bld) [Volume fraction] 52.7 % Normal 42.0-54.0 [facility] Comment on above: Performed By: #### P HOS, URIC, MG, CMP, DBIL, LIPID #### [facility] [address] [place] [address] Dr. Karla Lagos Hemoglobin (Bld) [Mass/Vol] 17.0 g/dL Normal 14.0-18.0 [facility] Comment on above: Performed By: #### P HOS, URIC, MG, CMP, DBIL, LIPID #### [facility] [address] [place] [address] Dr. Karla Lagos IG # 0.03 10e3/ul Normal 0.00-0.03 [facility] Comment on above: Performed By: #### P HOS, URIC, MG, CMP, DBIL, LIPID #### [facility] [address] [place] [address] Dr. Karla Lagos IG % 0.4 % Normal 0.0-0.5 [facility] Comment on above: Performed By: #### P HOS, URIC, MG, CMP, DBIL, LIPID #### [facility] [address] [place] [address] Dr. Karla Lagos LYMPH # 1.1 103/ul Critically low 1.2-3.8 [facility] Comment on above: Performed By: #### P HOS, URIC, MG, CMP, DBIL, LIPID #### [facility] [address] [place] [address] Dr. Karla Lagos Lymphocytes/100 WBC (Bld) 16.0 % Critically low 20.5-60.0 [facility] Comment on above: Performed By: #### P HOS, URIC, MG, CMP, DBIL, LIPID #### [facility] [address] [place] [address] Dr. Karla Lagos MANUAL DIFF REQ NO Normal [facility] Comment on above: Performed By: #### P HOS, URIC, MG, CMP, DBIL, LIPID #### [facility] [address] [place] [address] Dr. Karla Lagos MCH (RBC) [Entitic mass] 29.9 pg Normal 25.9-34.0 [facility] Comment on above: Performed By: #### P HOS, URIC, MG, CMP, DBIL, LIPID #### [facility] [address] [place] [address] Dr. Karla Lagos MCHC (RBC) [Mass/Vol] 32.3 g/dL Normal 29.9-35.2 [facility] Comment on above: Performed By: #### P HOS, URIC, MG, CMP, DBIL, LIPID #### [facility] [address] [place] [address] Dr. Karla Lagos MCV (RBC) [Entitic vol] 92.6 fL Normal 80.0-94.0 [facility] Comment on above: Performed By: #### P HOS, URIC, MG, CMP, DBIL, LIPID #### [facility] [address] [place] [address] Dr. Karla Lagos MONO # 0.7 103/ul Normal 0.3-0.8 [facility] Comment on above: Performed By: #### P HOS, URIC, MG, CMP, DBIL, LIPID #### [facility] [address] [place] [address] Dr. Karla Lagos Monocytes/100 WBC (Bld) 10.6 % Normal 1.7-12.0 [facility] Comment on above: Performed By: #### P HOS, URIC, MG, CMP, DBIL, LIPID #### [facility] [address] [place] [address] Dr. Karla Lagos NEUT # 5.0 103/ul Normal 1.4-6.5 [facility] Comment on above: Performed By: #### P HOS, URIC, MG, CMP, DBIL, LIPID #### [facility] [address] [place] [address] Dr. Karla Lagos Neutrophils/100 WBC (Bld) 70.7 % Normal 43.0-75.0 [facility] Comment on above: Performed By: #### P HOS, URIC, MG, CMP, DBIL, LIPID #### [facility] [address] [place] [address] Dr. Karla Lagos Platelet mean volume (Bld) [Entitic vol] 10.3 fL Normal 9.5-13.5 [facility] Comment on above: Performed By: #### P HOS, URIC, MG, CMP, DBIL, LIPID #### [facility] [address] [address] [address] Karla Lagos PLT 263 103/ul Normal 150-450 [facility] Comment on above: Performed By: #### P HOS, URIC, MG, CMP, DBIL, LIPID #### [facility] [address] [place] [address] Dr. Karla Lagos RBC 5.69 106/ul Normal 4.70-6.10 [facility] Comment on above: Performed By: #### P HOS, URIC, MG, CMP, DBIL, LIPID #### [facility] [address] [address] [address] Karla Lagos WBC 7.0 103/ul Normal 4.0-11.0 [facility] Comment on above: Performed By: #### P HOS, URIC, MG, CMP, DBIL, LIPID #### [facility] [address] [place] [address] Dr. Karla Lagos LIPID PROFILEon 08-18-2022 CHOL-HDL RATIO NORM SEE BELOW Normal [facility] Comment on above: Result Comment: 3.3 - 4.4 LOW RISK 4.4 - 7.1 AVERAGE RISK 7.1 - 11.0 MODERATE RISK >11.0 HIGH RISK Performed By: #### P HOS, URIC, MG, CMP, DBIL, LIPID #### [facility] [address] [place] [address] Dr. Karla Lagos Cholesterol [Mass/Vol] 137 mg/dL Normal <=200 [facility] Comment on above: Performed By: #### P HOS, URIC, MG, CMP, DBIL, LIPID #### [facility] [address] [place] [address] Dr. Karla Lagos Cholesterol in HDL [Mass/Vol] 45 mg/dL Normal 40-60 [facility] Comment on above: Performed By: #### P HOS, URIC, MG, CMP, DBIL, LIPID #### [facility] [address] [place] [address] Dr. Karla Lagos Cholesterol in LDL [Mass/Vol] 59.0 mg/dL Normal [facility] Comment on above: Performed By: #### P HOS, URIC, MG, CMP, DBIL, LIPID #### [facility] [address] [address] [address] Karla Lagos Cholesterol.total/Ch olesterol in HDL [Mass ratio] 3.0 {ratio} Normal [facility] Comment on above: Performed By: #### P HOS, URIC, MG, CMP, DBIL, LIPID #### [facility] [address] [address] [address] Karla Lagos HDL NORMAL > or = 60 mg/dl - LO W CARDIOVASCULAR RISK <40 mg/dl - HIGH CARDIOVASCULAR RISK Normal [facility] Comment on above: Performed By: #### P HOS, URIC, MG, CMP, DBIL, LIPID #### [facility] [address] [address] [address] Karla Lagos LDL CALC NORMAL SEE BELOW Normal [facility] Comment on above: Result Comment: <100 mg/dl OPTIMAL 100 - 129 mg/dl NEAR OR ABOVE OPTIMAL 130 - 159 mg/dl BORDERLINE HIGH 160 - 189 mg/dl HIGH >190 mg/dl VERY HIGH Performed By: #### P HOS, URIC, MG, CMP, DBIL, LIPID #### [facility] [address] [address] [address] Karla Lagso Triglyceride [Mass/Vol] 165 mg/dL Critically high <=150 [facility] Comment on above: Performed By: #### P HOS, URIC, MG, CMP, DBIL, LIPID #### [facility] [address] [address] [address] Karla Lagos VLDL CALC 33.0 mg/dL Normal [facility] Comment on above: Performed By: #### P HOS, URIC, MG, CMP, DBIL, LIPID #### [facility] [address] [address] [address] Karla Lagos MAGNESIUMon 08-18-2022 Magnesium [Mass/Vol] 1.7 mg/dL Critically low 1.8-2.4 [facility] Comment on above: Performed By: #### P HOS, URIC, MG, CMP, DBIL, LIPID #### [facility] [address] [place] [address] Dr. Karla Lagos PHOSPHORUSon 08-18-2022 Phosphate [Mass/Vol] 3.6 mg/dL Normal 2.6-4.7 [facility] Comment on above: Performed By: #### P HOS, URIC, MG, CMP, DBIL, LIPID #### [facility] [address] [place] [address] Dr. Karla Lagos PROF 14(COMP METB)on 023 Albumin [Mass/Vol] 4.0 g/dL Normal 3.4-5.0 [facility] Comment on above: Performed By: #### P HOS, URIC, MG, CMP, DBIL, LIPID #### [facility] [address] [place] [address] Dr. Karla Lagos Albumin/Globulin [Mass ratio] 1.1 {ratio} Normal [facility] Comment on above: Performed By: #### P HOS, URIC, MG, CMP, DBIL, LIPID #### [facility] [address] [place] [address] Dr. Karla Lagos ALP [Catalytic activity/Vol] 96 U/L Normal 46-116 [facility] Comment on above: Performed By: #### P HOS, URIC, MG, CMP, DBIL, LIPID #### [facility] [address] [place] [address] Dr. Karla Lagos ALT [Catalytic activity/Vol] 42 U/L Normal 16-63 [facility] Comment on above: Performed By: #### P HOS, URIC, MG, CMP, DBIL, LIPID #### [facility] [address] [place] [address] Dr. Karla Lagos Anion gap [Moles/Vol] 12.9 mmol/L Normal [facility] Comment on above: Performed By: #### P HOS, URIC, MG, CMP, DBIL, LIPID #### [facility] [address] [place] [address] Dr. Karla Lagos AST [Catalytic activity/Vol] 22 U/L Normal 15-37 [facility] Comment on above: Performed By: #### P HOS, URIC, MG, CMP, DBIL, LIPID #### [facility] [address] [place] [address] Dr. Karla Lagos Bilirubin [Mass/Vol] 0.7 mg/dL Normal 0.2-1.0 [facility] Comment on above: Performed By: #### P HOS, URIC, MG, CMP, DBIL, LIPID #### [facility] [address] [place] [address] Dr. Karla Lagos Calcium [Mass/Vol] 9.4 mg/dL Normal 8.5-10.1 [facility] Comment on above: Performed By: #### P HOS, URIC, MG, CMP, DBIL, LIPID #### [facility] [address] [place] [address] Dr. Karla Lagos Chloride [Moles/Vol] 103 mmol/L Normal 98-107 [facility] Comment on above: Performed By: #### P HOS, URIC, MG, CMP, DBIL, LIPID #### [facility] [address] [place] [address] Dr. Karla Lagos CO2 [Moles/Vol] 27.8 mmol/L Normal 21.0-32.0 [facility] Comment on above: Performed By: #### P HOS, URIC, MG, CMP, DBIL, LIPID #### [facility] [address] [place] [address] Dr. Karla Lagos Creatinine [Mass/Vol] 1.28 mg/dL Normal 0.70-1.30 [facility] Comment on above: Performed By: #### P HOS, URIC, MG, CMP, DBIL, LIPID #### [facility] [address] [place] [address] Dr. Karla Lagos EGFR-AF ESTONIAN >60 Normal >=60 [facility] Comment on above: Performed By: #### P HOS, URIC, MG, CMP, DBIL, LIPID #### [facility] [address] [place] [address] Dr. Karla Lagos EGFR-NON AF ESTONIAN 57 mL/min/1.73m2 Critically low >=60 [facility] Comment on above: Performed By: #### P HOS, URIC, MG, CMP, DBIL, LIPID #### [facility] [address] [place] [address] Dr. Karla Lagos Globulin (S) [Mass/Vol] 3.5 g/dL Normal [facility] Comment on above: Performed By: #### P HOS, URIC, MG, CMP, DBIL, LIPID #### [facility] [address] [place] [address] Dr. Karla Lagos Glucose [Mass/Vol] 123 mg/dL Critically high 74-106 [facility] Comment on above: Performed By: #### P HOS, URIC, MG, CMP, DBIL, LIPID #### [facility] [address] [place] [address] Dr. Karla Lagos Potassium [Moles/Vol] 4.7 mmol/L Normal 3.5-5.1 [facility] Comment on above: Performed By: #### P HOS, URIC, MG, CMP, DBIL, LIPID #### [facility] [address] [place] [address] Dr. Karla Lagos Protein [Mass/Vol] 7.5 g/dL Normal 6.4-8.2 [facility] Comment on above: Performed By: #### P HOS, URIC, MG, CMP, DBIL, LIPID #### [facility] [address] [place] [address] Dr. Karla Lagos Sodium [Moles/Vol] 139 mmol/L Normal 136-145 [facility] Comment on above: Performed By: #### P HOS, URIC, MG, CMP, DBIL, LIPID #### [facility] [address] [place] [address] Dr. Karla Lagos Urea nitrogen [Mass/Vol] 22.0 mg/dL Critically high 7.0-18.0 [facility] Comment on above: Performed By: #### P HOS, URIC, MG, CMP, DBIL, LIPID #### [facility] [address] [place] [address] Dr. Karla Lagos Urea nitrogen/Creatinine [Mass ratio] 17.2 mg/mg Normal [facility] Comment on above: Performed By: #### P HOS, URIC, MG, CMP, DBIL, LIPID #### [facility] [address] [place] [address] Dr. Karla Lagos URIC ACID SERUMon 08-18-2022 Urate [Mass/Vol] 4.8 mg/dL Normal 3.5-7.2 [facility] Comment on above: Performed By: #### P HOS, URIC, MG, CMP, DBIL, LIPID #### [facility] [address] [place] [address] Dr. Karla Lagos BK VIRUS PCR QUANTon 023 BKV DNA QUANT PCR PLASMA Negative Normal Negative [facility] Comment on above: Result Comment: No B K DNA detected. . The linear range of the assay is 22 - 100,000,000 IU/mL. Performed By: #### B KVIRUS #### [facility] [address] [place] [address] Dr. Karla Lagos Log10 BKV DNA Plasma Normal [facility] Comment on above: Performed By: #### B KVIRUS #### [facility] [address] [place] [address] Dr. Karla Lagos FK506 (TACROLIMUS) WHOLE BLO ODon 07-21-2022 Tacrolimus (FK506), Blood 6.1 ng/mL Normal 2.0-20.0 [facility] Comment on above: Result Comment: Trou gh (immediately following transplant) 15.0 . Trough (steady state, 2 weeks or more after transplant): 3.0 - 8.0 . Performed by LC-MS/MS technology. Performed By: #### P HOS, URIC, MG, CMP, DBIL, LIPID #### [facility] [address] [place] [address] Dr. Karla Lagos BILIRUBIN CONJUGATED (DIRECT )on 07-19-2022 BILI, CONJUGATED 0.2 mg/dL Normal 0.0-0.2 [facility] Comment on above: Performed By: #### P HOS, URIC, MG, CMP, DBIL, LIPID #### [facility] [address] [place] [address] Dr. Karla Lagos CBC AUTO DIFFon 07-19-2022 BASO # 0.0 103/ul Normal 0.0-0.1 [facility] Comment on above: Performed By: #### P HOS, URIC, MG, CMP, DBIL, LIPID #### [facility] [address] [place] [address] Dr. Karla Lagos Basophils/100 WBC (Bld) 0.4 % Normal 0.2-2.0 [facility] Comment on above: Performed By: #### P HOS, URIC, MG, CMP, DBIL, LIPID #### [facility] [address] [place] [address] Dr. Karla Lagos EO # 0.1 103/ul Normal 0.0-0.7 [facility] Comment on above: Performed By: #### P HOS, URIC, MG, CMP, DBIL, LIPID #### [facility] [address] [place] [address] Dr. Karla Lagos Eosinophils/100 WBC (Bld) 1.6 % Normal 0.9-7.0 [facility] Comment on above: Performed By: #### P HOS, URIC, MG, CMP, DBIL, LIPID #### [facility] [address] [place] [address] Dr. Karla Lagos Erythrocyte distribution width (RBC) [Ratio] 14.2 % Normal 11.0-15.0 [facility] Comment on above: Performed By: #### P HOS, URIC, MG, CMP, DBIL, LIPID #### [facility] [address] [place] [address] Dr. Karla Lagos Hematocrit (Bld) [Volume fraction] 49.8 % Normal 42.0-54.0 [facility] Comment on above: Performed By: #### P HOS, URIC, MG, CMP, DBIL, LIPID #### [facility] [address] [place] [address] Dr. Karla Lagos Hemoglobin (Bld) [Mass/Vol] 16.6 g/dL Normal 14.0-18.0 [facility] Comment on above: Performed By: #### P HOS, URIC, MG, CMP, DBIL, LIPID #### [facility] [address] [place] [address] Dr. Karla Lagos IG # 0.03 10e3/ul Normal 0.00-0.03 [facility] Comment on above: Performed By: #### P HOS, URIC, MG, CMP, DBIL, LIPID #### [facility] [address] [place] [address] Dr. Karla Lagos IG % 0.4 % Normal 0.0-0.5 [facility] Comment on above: Performed By: #### P HOS, URIC, MG, CMP, DBIL, LIPID #### [facility] [address] [place] [address] Dr. Karla Lagos LYMPH # 1.1 103/ul Critically low 1.2-3.8 [facility] Comment on above: Performed By: #### P HOS, URIC, MG, CMP, DBIL, LIPID #### [facility] [address] [place] [address] Dr. Karla Lagos Lymphocytes/100 WBC (Bld) 14.9 % Critically low 20.5-60.0 [facility] Comment on above: Performed By: #### P HOS, URIC, MG, CMP, DBIL, LIPID #### [facility] [address] [place] [address] Dr. Karla Lagos MANUAL DIFF REQ NO Normal [facility] Comment on above: Performed By: #### P HOS, URIC, MG, CMP, DBIL, LIPID #### [facility] [address] [place] [address] Dr. Karla Lagos MCH (RBC) [Entitic mass] 30.4 pg Normal 25.9-34.0 [facility] Comment on above: Performed By: #### P HOS, URIC, MG, CMP, DBIL, LIPID #### [facility] [address] [place] [address] Dr. Karla Lagos MCHC (RBC) [Mass/Vol] 33.3 g/dL Normal 29.9-35.2 [facility] Comment on above: Performed By: #### P HOS, URIC, MG, CMP, DBIL, LIPID #### [facility] [address] [place] [address] Dr. Karla Lagos MCV (RBC) [Entitic vol] 91.2 fL Normal 80.0-94.0 [facility] Comment on above: Performed By: #### P HOS, URIC, MG, CMP, DBIL, LIPID #### [facility] [address] [place] [address] Dr. Karla Lagos MONO # 0.7 103/ul Normal 0.3-0.8 [facility] Comment on above: Performed By: #### P HOS, URIC, MG, CMP, DBIL, LIPID #### [facility] [address] [place] [address] Dr. Karla Lagos Monocytes/100 WBC (Bld) 10.3 % Normal 1.7-12.0 [facility] Comment on above: Performed By: #### P HOS, URIC, MG, CMP, DBIL, LIPID #### [facility] [address] [place] [address] Dr. Karla Lagos NEUT # 5.1 103/ul Normal 1.4-6.5 [facility] Comment on above: Performed By: #### P HOS, URIC, MG, CMP, DBIL, LIPID #### [facility] [address] [place] [address] Dr. Karla Lagos Neutrophils/100 WBC (Bld) 72.4 % Normal 43.0-75.0 [facility] Comment on above: Performed By: #### P HOS, URIC, MG, CMP, DBIL, LIPID #### [facility] [address] [place] [address] Dr. Karla Lagos Platelet mean volume (Bld) [Entitic vol] 10.4 fL Normal 9.5-13.5 [facility] Comment on above: Performed By: #### P HOS, URIC, MG, CMP, DBIL, LIPID #### [facility] [address] [place] [address] Dr. Karla Lagos PLT 248 103/ul Normal 150-450 [facility] Comment on above: Performed By: #### P HOS, URIC, MG, CMP, DBIL, LIPID #### [facility] [address] [place] [address] Dr. Karla Lagos RBC 5.46 106/ul Normal 4.70-6.10 [facility] Comment on above: Performed By: #### P HOS, URIC, MG, CMP, DBIL, LIPID #### [facility] [address] [address] [address] Karla Lagos WBC 7.1 103/ul Normal 4.0-11.0 [facility] Comment on above: Performed By: #### P HOS, URIC, MG, CMP, DBIL, LIPID #### [facility] [address] [place] [address] Dr. Karla Lagos LIPID PROFILEon 07-19-2022 CHOL-HDL RATIO NORM SEE BELOW Normal [facility] Comment on above: Result Comment: 3.3 - 4.4 LOW RISK 4.4 - 7.1 AVERAGE RISK 7.1 - 11.0 MODERATE RISK >11.0 HIGH RISK Performed By: #### P HOS, URIC, MG, CMP, DBIL, LIPID #### [facility] [address] [place] [address] Dr. Karla Lagos Cholesterol [Mass/Vol] 130 mg/dL Normal <=200 [facility] Comment on above: Performed By: #### P HOS, URIC, MG, CMP, DBIL, LIPID #### [facility] [address] [place] [address] Dr. Karla Lagos Cholesterol in HDL [Mass/Vol] 43 mg/dL Normal 40-60 [facility] Comment on above: Performed By: #### P HOS, URIC, MG, CMP, DBIL, LIPID #### [facility] [address] [place] [address] Dr. Karla Lagos Cholesterol in LDL [Mass/Vol] 61.8 mg/dL Normal [facility] Comment on above: Performed By: #### P HOS, URIC, MG, CMP, DBIL, LIPID #### [facility] [address] [place] [address] Dr. Karla Lagos Cholesterol.total/Ch olesterol in HDL [Mass ratio] 3.0 {ratio} Normal [facility] Comment on above: Performed By: #### P HOS, URIC, MG, CMP, DBIL, LIPID #### [facility] [address] [address] [address] Karla Lagos HDL NORMAL > or = 60 mg/dl - LO W CARDIOVASCULAR RISK <40 mg/dl - HIGH CARDIOVASCULAR RISK Normal [facility] Comment on above: Performed By: #### P HOS, URIC, MG, CMP, DBIL, LIPID #### [facility] [address] [address] [address] Karla Lagos LDL CALC NORMAL SEE BELOW Normal [facility] Comment on above: Result Comment: <100 mg/dl OPTIMAL 100 - 129 mg/dl NEAR OR ABOVE OPTIMAL 130 - 159 mg/dl BORDERLINE HIGH 160 - 189 mg/dl HIGH >190 mg/dl VERY HIGH Performed By: #### P HOS, URIC, MG, CMP, DBIL, LIPID #### [facility] [address] [address] [address] Karla Lagos Triglyceride [Mass/Vol] 126 mg/dL Normal <=150 [facility] Comment on above: Performed By: #### P HOS, URIC, MG, CMP, DBIL, LIPID #### [facility] [address] [address] [address] Karla Lagos VLDL CALC 25.2 mg/dL Normal [facility] Comment on above: Performed By: #### P HOS, URIC, MG, CMP, DBIL, LIPID #### [facility] [address] [address] [address] Karla Lagos MAGNESIUMon 07-19-2022 Magnesium [Mass/Vol] 1.7 mg/dL Critically low 1.8-2.4 [facility] Comment on above: Performed By: #### P HOS, URIC, MG, CMP, DBIL, LIPID #### [facility] [address] [address] [address] Karla Lagos PHOSPHORUSon 07-19-2022 Phosphate [Mass/Vol] 3.1 mg/dL Normal 2.6-4.7 [facility] Comment on above: Performed By: #### P HOS, URIC, MG, CMP, DBIL, LIPID #### [facility] [address] [place] [address] Dr. Karla Lagos PROF 14(COMP METB)on 023 Albumin [Mass/Vol] 4.0 g/dL Normal 3.4-5.0 [facility] Comment on above: Performed By: #### P HOS, URIC, MG, CMP, DBIL, LIPID #### [facility] [address] [place] [address] Dr. Karla Lagos Albumin/Globulin [Mass ratio] 1.3 {ratio} Normal [facility] Comment on above: Performed By: #### P HOS, URIC, MG, CMP, DBIL, LIPID #### [facility] [address] [place] [address] Dr. Karla Lagos ALP [Catalytic activity/Vol] 79 U/L Normal 46-116 [facility] Comment on above: Performed By: #### P HOS, URIC, MG, CMP, DBIL, LIPID #### [facility] [address] [place] [address] Dr. Karla Lagos ALT [Catalytic activity/Vol] 40 U/L Normal 16-63 [facility] Comment on above: Performed By: #### P HOS, URIC, MG, CMP, DBIL, LIPID #### [facility] [address] [place] [address] Dr. Karla Lagos Anion gap [Moles/Vol] 12.8 mmol/L Normal [facility] Comment on above: Performed By: #### P HOS, URIC, MG, CMP, DBIL, LIPID #### [facility] [address] [place] [address] Dr. Karla Lagos AST [Catalytic activity/Vol] 24 U/L Normal 15-37 [facility] Comment on above: Performed By: #### P HOS, URIC, MG, CMP, DBIL, LIPID #### [facility] [address] [place] [address] Dr. Karla Lagos Bilirubin [Mass/Vol] 0.7 mg/dL Normal 0.2-1.0 [facility] Comment on above: Performed By: #### P HOS, URIC, MG, CMP, DBIL, LIPID #### [facility] [address] [place] [address] Dr. Karla Lagos Calcium [Mass/Vol] 9.3 mg/dL Normal 8.5-10.1 [facility] Comment on above: Performed By: #### P HOS, URIC, MG, CMP, DBIL, LIPID #### [facility] [address] [address] [address] Karla Lagos Chloride [Moles/Vol] 105 mmol/L Normal 98-107 [facility] Comment on above: Performed By: #### P HOS, URIC, MG, CMP, DBIL, LIPID #### [facility] [address] [address] [address] Karla Lagos CO2 [Moles/Vol] 28.4 mmol/L Normal 21.0-32.0 [facility] Comment on above: Performed By: #### P HOS, URIC, MG, CMP, DBIL, LIPID #### [facility] [address] [place] [address] Dr. Karla Lagos Creatinine [Mass/Vol] 1.23 mg/dL Normal 0.70-1.30 [facility] Comment on above: Performed By: #### P HOS, URIC, MG, CMP, DBIL, LIPID #### [facility] [address] [place] [address] Dr. Karla Lagos EGFR-AF ESTONIAN >60 Normal >=60 [facility] Comment on above: Performed By: #### P HOS, URIC, MG, CMP, DBIL, LIPID #### [facility] [address] [place] [address] Dr. Karla Lagos EGFR-NON AF ESTONIAN =60 Normal >=60 [facility] Comment on above: Performed By: #### P HOS, URIC, MG, CMP, DBIL, LIPID #### [facility] [address] [place] [address] Dr. Karla Lagos Globulin (S) [Mass/Vol] 3.1 g/dL Normal [facility] Comment on above: Performed By: #### P HOS, URIC, MG, CMP, DBIL, LIPID #### [facility] [address] [place] [address] Dr. Karla Lagos Glucose [Mass/Vol] 114 mg/dL Critically high 74-106 [facility] Comment on above: Performed By: #### P HOS, URIC, MG, CMP, DBIL, LIPID #### [facility] [address] [place] [address] Dr. Karla Lagos Potassium [Moles/Vol] 4.2 mmol/L Normal 3.5-5.1 [facility] Comment on above: Performed By: #### P HOS, URIC, MG, CMP, DBIL, LIPID #### [facility] [address] [place] [address] Dr. Karla Lagos Protein [Mass/Vol] 7.1 g/dL Normal 6.4-8.2 [facility] Comment on above: Performed By: #### P HOS, URIC, MG, CMP, DBIL, LIPID #### [facility] [address] [place] [address] Dr. Karla Lagos Sodium [Moles/Vol] 142 mmol/L Normal 136-145 [facility] Comment on above: Performed By: #### P HOS, URIC, MG, CMP, DBIL, LIPID #### [facility] [address] [place] [address] Dr. Karla Lagos Urea nitrogen [Mass/Vol] 15.0 mg/dL Normal 7.0-18.0 [facility] Comment on above: Performed By: #### P HOS, URIC, MG, CMP, DBIL, LIPID #### [facility] [address] [place] [address] Dr. Karla Lagos Urea nitrogen/Creatinine [Mass ratio] 12.2 mg/mg Normal [facility] Comment on above: Performed By: #### P HOS, URIC, MG, CMP, DBIL, LIPID #### [facility] [address] [place] [address] Dr. Karla Lagos URIC ACID SERUMon 07-19-2022 Urate [Mass/Vol] 5.1 mg/dL Normal 3.5-7.2 [facility] Comment on above: Performed By: #### P HOS, URIC, MG, CMP, DBIL, LIPID #### [facility] [address] [place] [address] Dr. Karla Lagos FK506 (TACROLIMUS) WHOLE BLO ODon 06-04-2022 Tacrolimus (FK506), Blood 5.1 ng/mL Normal 2.0-20.0 [facility] Comment on above: Result Comment: Trou gh (immediately following transplant) 15.0 . Trough (steady state, 2 weeks or more after transplant): 3.0 - 8.0 . Performed by LC-MS/MS technology. Performed By: #### P HOS, URIC, MG, CMP, DBIL, LIPID #### [facility] [address] [place] [address] Dr. Karla Lagos BK VIRUS PCR QUANTon 023 BKV DNA QUANT PCR PLASMA Negative Normal Negative [facility] Comment on above: Result Comment: No B K DNA detected. . The linear range of the assay is 22 - 100,000,000 IU/mL. Performed By: #### P HOS, URIC, MG, CMP, DBIL, LIPID #### [facility] [address] [place] [address] Dr. Karla Lagos Log10 BKV DNA Plasma Normal [facility] Comment on above: Performed By: #### P HOS, URIC, MG, CMP, DBIL, LIPID #### [facility] [address] [place] [address] Dr. Karla Lagos BILIRUBIN CONJUGATED (DIRECT )on 06-01-2022 BILI, CONJUGATED 0.1 mg/dL Normal 0.0-0.2 [facility] Comment on above: Performed By: #### P HOS, URIC, MG, CMP, DBIL, LIPID #### [facility] [address] [place] [address] Dr. Karla Lagos CBC AUTO DIFFon 06-01-2022 BASO # 0.1 103/ul Normal 0.0-0.1 [facility] Comment on above: Performed By: #### P HOS, URIC, MG, CMP, DBIL, LIPID #### [facility] [address] [place] [address] Dr. Karla Lagos Basophils/100 WBC (Bld) 0.9 % Normal 0.2-2.0 [facility] Comment on above: Performed By: #### P HOS, URIC, MG, CMP, DBIL, LIPID #### [facility] [address] [address] [address] Karla Lagos EO # 0.1 103/ul Normal 0.0-0.7 [facility] Comment on above: Performed By: #### P HOS, URIC, MG, CMP, DBIL, LIPID #### [facility] [address] [place] [address] Dr. Karla Lagos Eosinophils/100 WBC (Bld) 1.6 % Normal 0.9-7.0 [facility] Comment on above: Performed By: #### P HOS, URIC, MG, CMP, DBIL, LIPID #### [facility] [address] [place] [address] Dr. Karla Lagos Erythrocyte distribution width (RBC) [Ratio] 13.4 % Normal 11.0-15.0 [facility] Comment on above: Performed By: #### P HOS, URIC, MG, CMP, DBIL, LIPID #### [facility] [address] [place] [address] Dr. Karla Lagos Hematocrit (Bld) [Volume fraction] 46.3 % Normal 42.0-54.0 [facility] Comment on above: Performed By: #### P HOS, URIC, MG, CMP, DBIL, LIPID #### [facility] [address] [place] [address] Dr. Karla Lagos Hemoglobin (Bld) [Mass/Vol] 15.4 g/dL Normal 14.0-18.0 [facility] Comment on above: Performed By: #### P HOS, URIC, MG, CMP, DBIL, LIPID #### [facility] [address] [place] [address] Dr. Karla Lagos IG # 0.10 10e3/ul Critically high 0.00-0.03 [facility] Comment on above: Performed By: #### P HOS, URIC, MG, CMP, DBIL, LIPID #### [facility] [address] [place] [address] Dr. Karla Lagos IG % 1.3 % Critically high 0.0-0.5 [facility] Comment on above: Performed By: #### P HOS, URIC, MG, CMP, DBIL, LIPID #### [facility] [address] [place] [address] Dr. Karla Lagos LYMPH # 1.0 103/ul Critically low 1.2-3.8 [facility] Comment on above: Performed By: #### P HOS, URIC, MG, CMP, DBIL, LIPID #### [facility] [address] [place] [address] Dr. Karla Lagos Lymphocytes/100 WBC (Bld) 12.8 % Critically low 20.5-60.0 [facility] Comment on above: Performed By: #### P HOS, URIC, MG, CMP, DBIL, LIPID #### [facility] [address] [place] [address] Dr. Karla Lagos MANUAL DIFF REQ NO Normal [facility] Comment on above: Performed By: #### P HOS, URIC, MG, CMP, DBIL, LIPID #### [facility] [address] [place] [address] Dr. Karla Lagos MCH (RBC) [Entitic mass] 30.4 pg Normal 25.9-34.0 [facility] Comment on above: Performed By: #### P HOS, URIC, MG, CMP, DBIL, LIPID #### [facility] [address] [place] [address] Dr. Karla Lagos MCHC (RBC) [Mass/Vol] 33.3 g/dL Normal 29.9-35.2 [facility] Comment on above: Performed By: #### P HOS, URIC, MG, CMP, DBIL, LIPID #### [facility] [address] [place] [address] Dr. Karla Lagos MCV (RBC) [Entitic vol] 91.3 fL Normal 80.0-94.0 [facility] Comment on above: Performed By: #### P HOS, URIC, MG, CMP, DBIL, LIPID #### [facility] [address] [place] [address] Dr. Karla Lagos MONO # 0.6 103/ul Normal 0.3-0.8 [facility] Comment on above: Performed By: #### P HOS, URIC, MG, CMP, DBIL, LIPID #### [facility] [address] [place] [address] Dr. Karla Lagos Monocytes/100 WBC (Bld) 8.6 % Normal 1.7-12.0 [facility] Comment on above: Performed By: #### P HOS, URIC, MG, CMP, DBIL, LIPID #### [facility] [address] [place] [address] Dr. Karla Lagos NEUT # 5.5 103/ul Normal 1.4-6.5 [facility] Comment on above: Performed By: #### P HOS, URIC, MG, CMP, DBIL, LIPID #### [facility] [address] [place] [address] Dr. Karla Lagos Neutrophils/100 WBC (Bld) 74.8 % Normal 43.0-75.0 [facility] Comment on above: Performed By: #### P HOS, URIC, MG, CMP, DBIL, LIPID #### [facility] [address] [place] [address] Dr. Karla Lagos Platelet mean volume (Bld) [Entitic vol] 9.6 fL Normal 9.5-13.5 [facility] Comment on above: Performed By: #### P HOS, URIC, MG, CMP, DBIL, LIPID #### [facility] [address] [place] [address] Dr. Karla Lagos PLT 312 103/ul Normal 150-450 [facility] Comment on above: Performed By: #### P HOS, URIC, MG, CMP, DBIL, LIPID #### [facility] [address] [place] [address] Dr. Karla Lagos RBC 5.07 106/ul Normal 4.70-6.10 [facility] Comment on above: Performed By: #### P HOS, URIC, MG, CMP, DBIL, LIPID #### [facility] [address] [place] [address] Dr. Karla Lagos WBC 7.4 103/ul Normal 4.0-11.0 [facility] Comment on above: Performed By: #### P HOS, URIC, MG, CMP, DBIL, LIPID #### [facility] [address] [place] [address] Dr. Karla Lagos LIPID PROFILEon 06-01-2022 CHOL-HDL RATIO NORM SEE BELOW Normal [facility] Comment on above: Result Comment: 3.3 - 4.4 LOW RISK 4.4 - 7.1 AVERAGE RISK 7.1 - 11.0 MODERATE RISK >11.0 HIGH RISK Performed By: #### P HOS, URIC, MG, CMP, DBIL, LIPID #### [facility] [address] [address] [address] Karla Lagos Cholesterol [Mass/Vol] 108 mg/dL Normal <=200 [facility] Comment on above: Performed By: #### P HOS, URIC, MG, CMP, DBIL, LIPID #### [facility] [address] [place] [address] Dr. Karla Lagos Cholesterol in HDL [Mass/Vol] 36 mg/dL Critically low 40-60 [facility] Comment on above: Performed By: #### P HOS, URIC, MG, CMP, DBIL, LIPID #### [facility] [address] [place] [address] Dr. Karla Lagos Cholesterol in LDL [Mass/Vol] 58.4 mg/dL Normal [facility] Comment on above: Performed By: #### P HOS, URIC, MG, CMP, DBIL, LIPID #### [facility] [address] [place] [address] Dr. Karla Lagos Cholesterol.total/Ch olesterol in HDL [Mass ratio] 3.0 {ratio} Normal [facility] Comment on above: Performed By: #### P HOS, URIC, MG, CMP, DBIL, LIPID #### [facility] [address] [place] [address] Dr. Karla Lagos HDL NORMAL > or = 60 mg/dl - LO W CARDIOVASCULAR RISK <40 mg/dl - HIGH CARDIOVASCULAR RISK Normal [facility] Comment on above: Performed By: #### P HOS, URIC, MG, CMP, DBIL, LIPID #### [facility] [address] [place] [address] Dr. Karla Lagos LDL CALC NORMAL SEE BELOW Normal [facility] Comment on above: Result Comment: <100 mg/dl OPTIMAL 100 - 129 mg/dl NEAR OR ABOVE OPTIMAL 130 - 159 mg/dl BORDERLINE HIGH 160 - 189 mg/dl HIGH >190 mg/dl VERY HIGH Performed By: #### P HOS, URIC, MG, CMP, DBIL, LIPID #### [facility] [address] [address] [address] Krala Lagos Triglyceride [Mass/Vol] 68 mg/dL Normal <=150 [facility] Comment on above: Performed By: #### P HOS, URIC, MG, CMP, DBIL, LIPID #### [facility] [address] [place] [address] Dr. Karla Lagos VLDL CALC 13.6 mg/dL Normal [facility] Comment on above: Performed By: #### P HOS, URIC, MG, CMP, DBIL, LIPID #### [facility] [address] [place] [address] Dr. Karla Lagos MAGNESIUMon 06-01-2022 Magnesium [Mass/Vol] 1.7 mg/dL Critically low 1.8-2.4 [facility] Comment on above: Performed By: #### P HOS, URIC, MG, CMP, DBIL, LIPID #### [facility] [address] [place] [address] Dr. Karla Lagos PHOSPHORUSon 06-01-2022 Phosphate [Mass/Vol] 3.7 mg/dL Normal 2.6-4.7 [facility] Comment on above: Performed By: #### P HOS, URIC, MG, CMP, DBIL, LIPID #### [facility] [address] [place] [address] Dr. Karla Lagos PROF 14(COMP METB)on 023 Albumin [Mass/Vol] 3.4 g/dL Normal 3.4-5.0 [facility] Comment on above: Performed By: #### P HOS, URIC, MG, CMP, DBIL, LIPID #### [facility] [address] [place] [address] Dr. Karla Lagos Albumin/Globulin [Mass ratio] 1.0 {ratio} Normal [facility] Comment on above: Performed By: #### P HOS, URIC, MG, CMP, DBIL, LIPID #### [facility] [address] [place] [address] Dr. Karla Lagos ALP [Catalytic activity/Vol] 92 U/L Normal 46-116 [facility] Comment on above: Performed By: #### P HOS, URIC, MG, CMP, DBIL, LIPID #### [facility] [address] [place] [address] Dr. Karla Lagos ALT [Catalytic activity/Vol] 33 U/L Normal 16-63 [facility] Comment on above: Performed By: #### P HOS, URIC, MG, CMP, DBIL, LIPID #### [facility] [address] [place] [address] Dr. Karla Lagos Anion gap [Moles/Vol] 12.7 mmol/L Normal [facility] Comment on above: Performed By: #### P HOS, URIC, MG, CMP, DBIL, LIPID #### [facility] [address] [place] [address] Dr. Karla Lagos AST [Catalytic activity/Vol] 21 U/L Normal 15-37 [facility] Comment on above: Performed By: #### P HOS, URIC, MG, CMP, DBIL, LIPID #### [facility] [address] [place] [address] Dr. Karla Lagos Bilirubin [Mass/Vol] 0.4 mg/dL Normal 0.2-1.0 [facility] Comment on above: Performed By: #### P HOS, URIC, MG, CMP, DBIL, LIPID #### [facility] [address] [place] [address] Dr. Karla Lagos Calcium [Mass/Vol] 9.0 mg/dL Normal 8.5-10.1 [facility] Comment on above: Performed By: #### P HOS, URIC, MG, CMP, DBIL, LIPID #### [facility] [address] [place] [address] Dr. Karla Lagos Chloride [Moles/Vol] 104 mmol/L Normal 98-107 [facility] Comment on above: Performed By: #### P HOS, URIC, MG, CMP, DBIL, LIPID #### [facility] [address] [place] [address] Dr. Karla Lagos CO2 [Moles/Vol] 28.7 mmol/L Normal 21.0-32.0 [facility] Comment on above: Performed By: #### P HOS, URIC, MG, CMP, DBIL, LIPID #### [facility] [address] [address] [address] Karla Lagos Creatinine [Mass/Vol] 1.15 mg/dL Normal 0.70-1.30 [facility] Comment on above: Performed By: #### P HOS, URIC, MG, CMP, DBIL, LIPID #### [facility] [address] [place] [address] Dr. Karla Lagos EGFR-AF ESTONIAN >60 Normal >=60 [facility] Comment on above: Performed By: #### P HOS, URIC, MG, CMP, DBIL, LIPID #### [facility] [address] [place] [address] Dr. Karla Lagos EGFR-NON AF ESTONIAN >60 Normal >=60 [facility] Comment on above: Performed By: #### P HOS, URIC, MG, CMP, DBIL, LIPID #### [facility] [address] [place] [address] Dr. Karla Lagos Globulin (S) [Mass/Vol] 3.3 g/dL Normal [facility] Comment on above: Performed By: #### P HOS, URIC, MG, CMP, DBIL, LIPID #### [facility] [address] [address] [address] Karla Lagos Glucose [Mass/Vol] 112 mg/dL Critically high 74-106 [facility] Comment on above: Performed By: #### P HOS, URIC, MG, CMP, DBIL, LIPID #### [facility] [address] [place] [address] Dr. Karla Lagos Potassium [Moles/Vol] 4.4 mmol/L Normal 3.5-5.1 [facility] Comment on above: Performed By: #### P HOS, URIC, MG, CMP, DBIL, LIPID #### [facility] [address] [place] [address] Dr. Karla Lagos Protein [Mass/Vol] 6.7 g/dL Normal 6.4-8.2 [facility] Comment on above: Performed By: #### P HOS, URIC, MG, CMP, DBIL, LIPID #### [facility] [address] [address] [address] Karla Lagos Sodium [Moles/Vol] 141 mmol/L Normal 136-145 [facility] Comment on above: Performed By: #### P HOS, URIC, MG, CMP, DBIL, LIPID #### [facility] [address] [place] [address] Dr. Karla Lagos Urea nitrogen [Mass/Vol] 17.0 mg/dL Normal 7.0-18.0 [facility] Comment on above: Performed By: #### P HOS, URIC, MG, CMP, DBIL, LIPID #### [facility] [address] [address] [address] Karla Lagos Urea nitrogen/Creatinine [Mass ratio] 14.8 mg/mg Normal [facility] Comment on above: Performed By: #### P HOS, URIC, MG, CMP, DBIL, LIPID #### [facility] [address] [place] [address] Dr. Karla Lagos URIC ACID SERUMon 06-01-2022 Urate [Mass/Vol] 5.3 mg/dL Normal 3.5-7.2 [facility] Comment on above: Performed By: #### P HOS, URIC, MG, CMP, DBIL, LIPID #### [facility] [address] [place] [address] Dr. Karla Lagos NM STRESS/REST MULTIon 05-30 NM STRESS/REST MULTI Patient: VISHAL DUKE Exam Date: 05/30/2022 : 1960 Gender:M Ordering : DR FEDERICO CHESTER M.D. Admission #: [id number] Family : Order #: [id number] CLICK HERE TO VIEW EXAM RADIOLOGY REPORT [...] Basal inferoseptal. Basal inferior. Mid-anteroseptal. Mid-inferoseptal. Mid-inferior. [place]. SIZE: Large (5 or more segments). SEVERITY: [...] MD on 06/01/2022 at 06:10 Normal [facility] FK506 (TACROLIMUS) WHOLE BLO ODon 05-06-2022 Tacrolimus (FK506), Blood 5.4 ng/mL Normal 2.0-20.0 [facility] Comment on above: Result Comment: Trou gh (immediately following transplant) 15.0 . Trough (steady state, 2 weeks or more after transplant): 3.0 - 8.0 . Performed by LC-MS/MS technology. Performed By: #### P HOS, URIC, MG, CMP, DBIL, LIPID #### [facility] [address] [place] [address] Dr. Karla Lagos BK VIRUS PCR QUANTon 023 BKV DNA QUANT PCR PLASMA Negative Normal Negative [facility] Comment on above: Result Comment: No B K DNA detected. . The linear range of the assay is 22 - 100,000,000 IU/mL. Performed By: #### P HOS, URIC, MG, CMP, DBIL, LIPID #### [facility] [address] [place] [address] Dr. Karla Lagos Log10 BKV DNA Plasma Normal [facility] Comment on above: Performed By: #### P HOS, URIC, MG, CMP, DBIL, LIPID #### [facility] [address] [place] [address] Dr. Karla Lagos BILIRUBIN CONJUGATED (DIRECT )on 05-03-2022 BILI, CONJUGATED 0.2 mg/dL Normal 0.0-0.2 [facility] Comment on above: Performed By: #### P HOS, URIC, MG, CMP, DBIL, LIPID #### [facility] [address] [place] [address] Dr. Karla Lagos CBC AUTO DIFFon 05-03-2022 BASO # 0.1 103/ul Normal 0.0-0.1 [facility] Comment on above: Performed By: #### P HOS, URIC, MG, CMP, DBIL, LIPID #### [facility] [address] [place] [address] Dr. Karla Lagos Basophils/100 WBC (Bld) 0.7 % Normal 0.2-2.0 [facility] Comment on above: Performed By: #### P HOS, URIC, MG, CMP, DBIL, LIPID #### [facility] [address] [place] [address] Dr. Karla Lagos EO # 0.1 103/ul Normal 0.0-0.7 [facility] Comment on above: Performed By: #### P HOS, URIC, MG, CMP, DBIL, LIPID #### [facility] [address] [place] [address] Dr. Karla Lagos Eosinophils/100 WBC (Bld) 1.6 % Normal 0.9-7.0 [facility] Comment on above: Performed By: #### P HOS, URIC, MG, CMP, DBIL, LIPID #### [facility] [address] [place] [address] Dr. Karla Lagos Erythrocyte distribution width (RBC) [Ratio] 13.7 % Normal 11.0-15.0 [facility] Comment on above: Performed By: #### P HOS, URIC, MG, CMP, DBIL, LIPID #### [facility] [address] [place] [address] Dr. Karla Lagos Hematocrit (Bld) [Volume fraction] 49.1 % Normal 42.0-54.0 [facility] Comment on above: Performed By: #### P HOS, URIC, MG, CMP, DBIL, LIPID #### [facility] [address] [place] [address] Dr. Karla Lagos Hemoglobin (Bld) [Mass/Vol] 16.5 g/dL Normal 14.0-18.0 [facility] Comment on above: Performed By: #### P HOS, URIC, MG, CMP, DBIL, LIPID #### [facility] [address] [place] [address] Dr. Karla Lagos IG # 0.05 10e3/ul Critically high 0.00-0.03 [facility] Comment on above: Performed By: #### P HOS, URIC, MG, CMP, DBIL, LIPID #### [facility] [address] [place] [address] Dr. Karla Lagos IG % 0.7 % Critically high 0.0-0.5 [facility] Comment on above: Performed By: #### P HOS, URIC, MG, CMP, DBIL, LIPID #### [facility] [address] [place] [address] Dr. Karla Lagos LYMPH # 1.0 103/ul Critically low 1.2-3.8 [facility] Comment on above: Performed By: #### P HOS, URIC, MG, CMP, DBIL, LIPID #### [facility] [address] [place] [address] Dr. Karla Lagos Lymphocytes/100 WBC (Bld) 13.7 % Critically low 20.5-60.0 [facility] Comment on above: Performed By: #### P HOS, URIC, MG, CMP, DBIL, LIPID #### [facility] [address] [place] [address] Dr. Karla Lagos MANUAL DIFF REQ NO Normal [facility] Comment on above: Performed By: #### P HOS, URIC, MG, CMP, DBIL, LIPID #### [facility] [address] [place] [address] Dr. Karla Lagos MCH (RBC) [Entitic mass] 30.9 pg Normal 25.9-34.0 [facility] Comment on above: Performed By: #### P HOS, URIC, MG, CMP, DBIL, LIPID #### [facility] [address] [place] [address] Dr. Karla Lagos MCHC (RBC) [Mass/Vol] 33.6 g/dL Normal 29.9-35.2 [facility] Comment on above: Performed By: #### P HOS, URIC, MG, CMP, DBIL, LIPID #### [facility] [address] [place] [address] Dr. Karla Lagos MCV (RBC) [Entitic vol] 91.9 fL Normal 80.0-94.0 [facility] Comment on above: Performed By: #### P HOS, URIC, MG, CMP, DBIL, LIPID #### [facility] [address] [place] [address] Dr. Karla Lagos MONO # 0.7 103/ul Normal 0.3-0.8 [facility] Comment on above: Performed By: #### P HOS, URIC, MG, CMP, DBIL, LIPID #### [facility] [address] [place] [address] Dr. Karla Lagos Monocytes/100 WBC (Bld) 9.7 % Normal 1.7-12.0 [facility] Comment on above: Performed By: #### P HOS, URIC, MG, CMP, DBIL, LIPID #### [facility] [address] [address] [address] Karla Lagos NEUT # 5.2 103/ul Normal 1.4-6.5 [facility] Comment on above: Performed By: #### P HOS, URIC, MG, CMP, DBIL, LIPID #### [facility] [address] [address] [address] Karla Lagos Neutrophils/100 WBC (Bld) 73.6 % Normal 43.0-75.0 [facility] Comment on above: Performed By: #### P HOS, URIC, MG, CMP, DBIL, LIPID #### [facility] [address] [place] [address] Dr. Karla Lagos Platelet mean volume (Bld) [Entitic vol] 10.2 fL Normal 9.5-13.5 [facility] Comment on above: Performed By: #### P HOS, URIC, MG, CMP, DBIL, LIPID #### [facility] [address] [place] [address] Dr. Karla Lagos PLT 218 103/ul Normal 150-450 [facility] Comment on above: Performed By: #### P HOS, URIC, MG, CMP, DBIL, LIPID #### [facility] [address] [place] [address] Dr. Karla Lagos RBC 5.34 106/ul Normal 4.70-6.10 [facility] Comment on above: Performed By: #### P HOS, URIC, MG, CMP, DBIL, LIPID #### [facility] [address] [place] [address] Dr. Karla Lagos WBC 7.1 103/ul Normal 4.0-11.0 [facility] Comment on above: Performed By: #### P HOS, URIC, MG, CMP, DBIL, LIPID #### [facility] [address] [place] [address] Dr. Karla Lagos LIPID PROFILEon 05-03-2022 CHOL-HDL RATIO NORM SEE BELOW Normal [facility] Comment on above: Result Comment: 3.3 - 4.4 LOW RISK 4.4 - 7.1 AVERAGE RISK 7.1 - 11.0 MODERATE RISK >11.0 HIGH RISK Performed By: #### M G, CMP, URIC, DBIL, LIPID, PHOS #### [facility] [address] [place] [address] Dr. Karla Lagos Cholesterol [Mass/Vol] 121 mg/dL Normal <=200 [facility] Comment on above: Performed By: #### M G, CMP, URIC, DBIL, LIPID, PHOS #### [facility] [address] [place] [address] Dr. Krala Lagos Cholesterol in HDL [Mass/Vol] 44 mg/dL Normal 40-60 [facility] Comment on above: Performed By: #### M G, CMP, URIC, DBIL, LIPID, PHOS #### [facility] [address] [place] [address] Dr. Karla Lagos Cholesterol in LDL [Mass/Vol] 40.0 mg/dL Normal [facility] Comment on above: Performed By: #### M G, CMP, URIC, DBIL, LIPID, PHOS #### [facility] [address] [place] [address] Dr. Karla Lagos Cholesterol.total/Ch olesterol in HDL [Mass ratio] 2.8 {ratio} Normal [facility] Comment on above: Performed By: #### M G, CMP, URIC, DBIL, LIPID, PHOS #### [facility] [address] [place] [address] Dr. Karla Lagos HDL NORMAL > or = 60 mg/dl - LO W CARDIOVASCULAR RISK <40 mg/dl - HIGH CARDIOVASCULAR RISK Normal [facility] Comment on above: Performed By: #### M G, CMP, URIC, DBIL, LIPID, PHOS #### [facility] [address] [place] [address] Dr. Karla Lagos LDL CALC NORMAL SEE BELOW Normal [facility] Comment on above: Result Comment: <100 mg/dl OPTIMAL 100 - 129 mg/dl NEAR OR ABOVE OPTIMAL 130 - 159 mg/dl BORDERLINE HIGH 160 - 189 mg/dl HIGH >190 mg/dl VERY HIGH Performed By: #### M G, CMP, URIC, DBIL, LIPID, PHOS #### [facility] [address] [address] [address] Karla Lagos Triglyceride [Mass/Vol] 185 mg/dL Critically high <=150 [facility] Comment on above: Performed By: #### M G, CMP, URIC, DBIL, LIPID, PHOS #### [facility] [address] [address] [address] Karla Lagos VLDL CALC 37.0 mg/dL Normal [facility] Comment on above: Performed By: #### M G, CMP, URIC, DBIL, LIPID, PHOS #### [facility] [address] [place] [address] Dr. Karla Lagos MAGNESIUMon 05-03-2022 Magnesium [Mass/Vol] 1.6 mg/dL Critically low 1.8-2.4 [facility] Comment on above: Performed By: #### P HOS, URIC, MG, CMP, DBIL, LIPID #### [facility] [address] [place] [address] Dr. Karla Lagos PHOSPHORUSon 05-03-2022 Phosphate [Mass/Vol] 3.6 mg/dL Normal 2.6-4.7 [facility] Comment on above: Performed By: #### P HOS, URIC, MG, CMP, DBIL, LIPID #### [facility] [address] [place] [address] Dr. Karla Lagos PROF 14(COMP METB)on 023 Albumin [Mass/Vol] 3.9 g/dL Normal 3.4-5.0 [facility] Comment on above: Performed By: #### M G, CMP, URIC, DBIL, LIPID, PHOS #### [facility] [address] [place] [address] Dr. Karla Lagos Albumin/Globulin [Mass ratio] 1.3 {ratio} Normal [facility] Comment on above: Performed By: #### M G, CMP, URIC, DBIL, LIPID, PHOS #### [facility] [address] [place] [address] Dr. Karla Lagos ALP [Catalytic activity/Vol] 80 U/L Normal 46-116 [facility] Comment on above: Performed By: #### M G, CMP, URIC, DBIL, LIPID, PHOS #### [facility] [address] [address] [address] Karla Lagos ALT [Catalytic activity/Vol] 41 U/L Normal 16-63 [facility] Comment on above: Performed By: #### M G, CMP, URIC, DBIL, LIPID, PHOS #### [facility] [address] [place] [address] Dr. Karla Lagos Anion gap [Moles/Vol] 11.9 mmol/L Normal [facility] Comment on above: Performed By: #### M G, CMP, URIC, DBIL, LIPID, PHOS #### [facility] [address] [place] [address] Dr. Karla Lagos AST [Catalytic activity/Vol] 24 U/L Normal 15-37 [facility] Comment on above: Performed By: #### M G, CMP, URIC, DBIL, LIPID, PHOS #### [facility] [address] [place] [address] Dr. Karla Lagos Bilirubin [Mass/Vol] 0.7 mg/dL Normal 0.2-1.0 [facility] Comment on above: Performed By: #### M G, CMP, URIC, DBIL, LIPID, PHOS #### [facility] [address] [place] [address] Dr. Karla Lagos Calcium [Mass/Vol] 9.2 mg/dL Normal 8.5-10.1 [facility] Comment on above: Performed By: #### M G, CMP, URIC, DBIL, LIPID, PHOS #### [facility] [address] [place] [address] Dr. Karla Lagos Chloride [Moles/Vol] 103 mmol/L Normal 98-107 [facility] Comment on above: Performed By: #### M G, CMP, URIC, DBIL, LIPID, PHOS #### [facility] [address] [place] [address] Dr. Karla Lagos CO2 [Moles/Vol] 28.1 mmol/L Normal 21.0-32.0 [facility] Comment on above: Performed By: #### M G, CMP, URIC, DBIL, LIPID, PHOS #### [facility] [address] [place] [address] Dr. Karla Lagos Creatinine [Mass/Vol] 1.19 mg/dL Normal 0.70-1.30 [facility] Comment on above: Performed By: #### M G, CMP, URIC, DBIL, LIPID, PHOS #### [facility] [address] [address] [address] Karla Lagos EGFR-AF ESTONIAN >60 Normal >=60 [facility] Comment on above: Performed By: #### M G, CMP, URIC, DBIL, LIPID, PHOS #### [facility] [address] [place] [address] Dr. Karla Lagos EGFR-NON AF ESTONIAN >60 Normal >=60 [facility] Comment on above: Performed By: #### M G, CMP, URIC, DBIL, LIPID, PHOS #### [facility] [address] [place] [address] Dr. Karla Lagos Globulin (S) [Mass/Vol] 2.9 g/dL Normal [facility] Comment on above: Performed By: #### M G, CMP, URIC, DBIL, LIPID, PHOS #### [facility] [address] [address] [address] Karla Lagos Glucose [Mass/Vol] 119 mg/dL Critically high 74-106 T [facility] Comment on above: Performed By: #### M G, CMP, URIC, DBIL, LIPID, PHOS #### [facility] [address] [address] [address] Karla Lagos Potassium [Moles/Vol] 4.0 mmol/L Normal 3.5-5.1 [facility] Comment on above: Performed By: #### M G, CMP, URIC, DBIL, LIPID, PHOS #### [facility] [address] [place] [address] Dr. Karla Lagos Protein [Mass/Vol] 6.8 g/dL Normal 6.4-8.2 [facility] Comment on above: Performed By: #### M G, CMP, URIC, DBIL, LIPID, PHOS #### [facility] [address] [place] [address] Dr. Karla Lagos Sodium [Moles/Vol] 139 mmol/L Normal 136-145 [facility] Comment on above: Performed By: #### M G, CMP, URIC, DBIL, LIPID, PHOS #### [facility] [address] [address] [address] Karla Lagos Urea nitrogen [Mass/Vol] 20.0 mg/dL Critically high 7.0-18.0 [facility] Comment on above: Performed By: #### M G, CMP, URIC, DBIL, LIPID, PHOS #### [facility] [address] [place] [address] Dr. Karla Lagos Urea nitrogen/Creatinine [Mass ratio] 16.8 mg/mg Normal [facility] Comment on above: Performed By: #### M G, CMP, URIC, DBIL, LIPID, PHOS #### [facility] [address] [place] [address] Dr. Karla Lagos URIC ACID SERUMon 05-03-2022 Urate [Mass/Vol] 5.5 mg/dL Normal 3.5-7.2 [facility] Comment on above: Performed By: #### M G, CMP, URIC, DBIL, LIPID, PHOS #### [facility] [address] [place] [address] Dr. Karla Lagos FK506 (TACROLIMUS) WHOLE BLO ODon 04-17-2022 Tacrolimus (FK506), Blood 6.1 ng/mL Normal 2.0-20.0 [facility] Comment on above: Result Comment: Trou gh (immediately following transplant) 15.0 . Trough (steady state, 2 weeks or more after transplant): 3.0 - 8.0 . Performed by LC-MS/MS technology. Performed By: #### P HOS, URIC, MG, CMP, DBIL, LIPID #### [facility] [address] [place] [address] Dr. Karla Lagos FK506 (TACROLIMUS) WHOLE BLO ODon 03-28-2022 Tacrolimus (FK506), Blood 8.8 ng/mL Normal 2.0-20.0 [facility] Comment on above: Result Comment: Trou gh (immediately following transplant) 15.0 . Trough (steady state, 2 weeks or more after transplant): 3.0 - 8.0 . Performed by LC-MS/MS technology. Performed By: #### P HOS, URIC, MG, CMP, DBIL, LIPID #### [facility] [address] [place] [address] Dr. Karla Lagos BILIRUBIN CONJUGATED (DIRECT )on 03-25-2022 BILI, CONJUGATED 0.2 mg/dL Normal 0.0-0.2 [facility] Comment on above: Performed By: #### P HOS, URIC, MG, CMP, DBIL, LIPID #### [facility] [address] [place] [address] Dr. Karla Lagos CBC AUTO DIFFon 03-25-2022 BASO # 0.1 103/ul Normal 0.0-0.1 [facility] Comment on above: Performed By: #### P HOS, URIC, MG, CMP, DBIL, LIPID #### [facility] [address] [address] [address] Karla Lagos Basophils/100 WBC (Bld) 0.7 % Normal 0.2-2.0 [facility] Comment on above: Performed By: #### P HOS, URIC, MG, CMP, DBIL, LIPID #### [facility] [address] [place] [address] Dr. Karla Lagos EO # 0.1 103/ul Normal 0.0-0.7 [facility] Comment on above: Performed By: #### P HOS, URIC, MG, CMP, DBIL, LIPID #### [facility] Laboratory [address] [place] [address] Dr. Karla Lagos Eosinophils/100 WBC (Bld) 1.4 % Normal 0.9-7.0 [facility] Comment on above: Performed By: #### P HOS, URIC, MG, CMP, DBIL, LIPID #### [facility] [address] [place] [address] Dr. Karla Lagos Erythrocyte distribution width (RBC) [Ratio] 13.6 % Normal 11.0-15.0 [facility] Comment on above: Performed By: #### P HOS, URIC, MG, CMP, DBIL, LIPID #### [facility] [address] [place] [address] Dr. Karla Lagos Hematocrit (Bld) [Volume fraction] 51.5 % Normal 42.0-54.0 [facility] Comment on above: Performed By: #### P HOS, URIC, MG, CMP, DBIL, LIPID #### [facility] [address] [place] [address] Dr. Karla Lagos Hemoglobin (Bld) [Mass/Vol] 16.8 g/dL Normal 14.0-18.0 [facility] Comment on above: Performed By: #### P HOS, URIC, MG, CMP, DBIL, LIPID #### [facility] [address] [place] [address] Dr. Karla Lagos IG # 0.06 10e3/ul Critically high 0.00-0.03 [facility] Comment on above: Performed By: #### P HOS, URIC, MG, CMP, DBIL, LIPID #### [facility] [address] [place] [address] Dr. Karla Lagos IG % 0.8 % Critically high 0.0-0.5 [facility] Comment on above: Performed By: #### P HOS, URIC, MG, CMP, DBIL, LIPID #### [facility] [address] [place] [address] Dr. Karla Lagos LYMPH # 1.1 103/ul Critically low 1.2-3.8 [facility] Comment on above: Performed By: #### P HOS, URIC, MG, CMP, DBIL, LIPID #### [facility] [address] [place] [address] Dr. Karla Lagos Lymphocytes/100 WBC (Bld) 14.8 % Critically low 20.5-60.0 [facility] Comment on above: Performed By: #### P HOS, URIC, MG, CMP, DBIL, LIPID #### [facility] [address] [place] [address] Dr. Karla Lagos MANUAL DIFF REQ NO Normal [facility] Comment on above: Performed By: #### P HOS, URIC, MG, CMP, DBIL, LIPID #### [facility] [address] [place] [address] Dr. Karla Lagos MCH (RBC) [Entitic mass] 30.2 pg Normal 25.9-34.0 [facility] Comment on above: Performed By: #### P HOS, URIC, MG, CMP, DBIL, LIPID #### [facility] [address] [place] [address] Dr. Karla Lagos MCHC (RBC) [Mass/Vol] 32.6 g/dL Normal 29.9-35.2 [facility] Comment on above: Performed By: #### P HOS, URIC, MG, CMP, DBIL, LIPID #### [facility] [address] [place] [address] Dr. Karla Lagos MCV (RBC) [Entitic vol] 92.6 fL Normal 80.0-94.0 [facility] Comment on above: Performed By: #### P HOS, URIC, MG, CMP, DBIL, LIPID #### [facility] [address] [place] [address] Dr. Karla Lagos MONO # 0.7 103/ul Normal 0.3-0.8 [facility] Comment on above: Performed By: #### P HOS, URIC, MG, CMP, DBIL, LIPID #### [facility] [address] [place] [address] Dr. Karla Lagos Monocytes/100 WBC (Bld) 10.0 % Normal 1.7-12.0 [facility] Comment on above: Performed By: #### P HOS, URIC, MG, CMP, DBIL, LIPID #### [facility] [address] [place] [address] Dr. Karla Lagos NEUT # 5.2 103/ul Normal 1.4-6.5 [facility] Comment on above: Performed By: #### P HOS, URIC, MG, CMP, DBIL, LIPID #### [facility] [address] [place] [address] Dr. Karla Lagos Neutrophils/100 WBC (Bld) 72.3 % Normal 43.0-75.0 [facility] Comment on above: Performed By: #### P HOS, URIC, MG, CMP, DBIL, LIPID #### [facility] [address] [place] [address] Dr. Karla Lagos Platelet mean volume (Bld) [Entitic vol] 10.4 fL Normal 9.5-13.5 [facility] Comment on above: Performed By: #### P HOS, URIC, MG, CMP, DBIL, LIPID #### [facility] [address] [place] [address] Dr. Karla Lagos PLT 245 103/ul Normal 150-450 [facility] Comment on above: Performed By: #### P HOS, URIC, MG, CMP, DBIL, LIPID #### [facility] [address] [place] [address] Dr. Karla Lagos RBC 5.56 106/ul Normal 4.70-6.10 [facility] Comment on above: Performed By: #### P HOS, URIC, MG, CMP, DBIL, LIPID #### [facility] [address] [place] [address] Dr. Karla Lagos WBC 7.2 103/ul Normal 4.0-11.0 [facility] Comment on above: Performed By: #### P HOS, URIC, MG, CMP, DBIL, LIPID #### [facility] [address] [place] [address] Dr. Karla Lagos LIPID PROFILEon 03-25-2022 CHOL-HDL RATIO NORM SEE BELOW Normal [facility] Comment on above: Result Comment: 3.3 - 4.4 LOW RISK 4.4 - 7.1 AVERAGE RISK 7.1 - 11.0 MODERATE RISK >11.0 HIGH RISK Performed By: #### P HOS, URIC, MG, CMP, DBIL, LIPID #### [facility] [address] [place] [address] Dr. Karla Lagos Cholesterol [Mass/Vol] 124 mg/dL Normal <=200 [facility] Comment on above: Performed By: #### P HOS, URIC, MG, CMP, DBIL, LIPID #### [facility] [address] [address] [address] Karla Lagos Cholesterol in HDL [Mass/Vol] 47 mg/dL Normal 40-60 [facility] Comment on above: Performed By: #### P HOS, URIC, MG, CMP, DBIL, LIPID #### [facility] [address] [address] [address] Karla Lagos Cholesterol in LDL [Mass/Vol] 47.4 mg/dL Normal [facility] Comment on above: Performed By: #### P HOS, URIC, MG, CMP, DBIL, LIPID #### [facility] [address] [place] [address] Dr. Karla Lagos Cholesterol.total/Ch olesterol in HDL [Mass ratio] 2.6 {ratio} Normal [facility] Comment on above: Performed By: #### P HOS, URIC, MG, CMP, DBIL, LIPID #### [facility] [address] [address] [address] Karla Lagos HDL NORMAL > or = 60 mg/dl - LO W CARDIOVASCULAR RISK <40 mg/dl - HIGH CARDIOVASCULAR RISK Normal [facility] Comment on above: Performed By: #### P HOS, URIC, MG, CMP, DBIL, LIPID #### [facility] [address] [address] [address] Karla Lagos LDL CALC NORMAL SEE BELOW Normal [facility] Comment on above: Result Comment: <100 mg/dl OPTIMAL 100 - 129 mg/dl NEAR OR ABOVE OPTIMAL 130 - 159 mg/dl BORDERLINE HIGH 160 - 189 mg/dl HIGH >190 mg/dl VERY HIGH Performed By: #### P HOS, URIC, MG, CMP, DBIL, LIPID #### [facility] [address] [address] [address] Karla Lagos Triglyceride [Mass/Vol] 148 mg/dL Normal <=150 [facility] Comment on above: Performed By: #### P HOS, URIC, MG, CMP, DBIL, LIPID #### [facility] [address] [address] [address] Karla Lagos VLDL CALC 29.6 mg/dL Normal [facility] Comment on above: Performed By: #### P HOS, URIC, MG, CMP, DBIL, LIPID #### [facility] [address] [address] [address] Karla Lagos MAGNESIUMon 03-25-2022 Magnesium [Mass/Vol] 1.5 mg/dL Critically low 1.8-2.4 [facility] Comment on above: Performed By: #### P HOS, URIC, MG, CMP, DBIL, LIPID #### [facility] [address] [place] [address] Dr. Karla Lagos PHOSPHORUSon 03-25-2022 Phosphate [Mass/Vol] 3.8 mg/dL Normal 2.6-4.7 [facility] Comment on above: Performed By: #### P HOS, URIC, MG, CMP, DBIL, LIPID #### [facility] [address] [place] [address] Dr. Karla Lagos PROF 14(COMP METB)on 022 Albumin [Mass/Vol] 4.1 g/dL Normal 3.4-5.0 [facility] Comment on above: Performed By: #### P HOS, URIC, MG, CMP, DBIL, LIPID #### [facility] [address] [place] [address] Dr. Karla Lagos Albumin/Globulin [Mass ratio] 1.3 {ratio} Normal [facility] Comment on above: Performed By: #### P HOS, URIC, MG, CMP, DBIL, LIPID #### [facility] [address] [address] [address] Karla Lagos ALP [Catalytic activity/Vol] 76 U/L Normal 46-116 [facility] Comment on above: Performed By: #### P HOS, URIC, MG, CMP, DBIL, LIPID #### [facility] [address] [address] [address] Karla Lagos ALT [Catalytic activity/Vol] 36 U/L Normal 16-63 [facility] Comment on above: Performed By: #### P HOS, URIC, MG, CMP, DBIL, LIPID #### [facility] [address] [place] [address] Dr. Karla Lagos Anion gap [Moles/Vol] 12.4 mmol/L Normal [facility] Comment on above: Performed By: #### P HOS, URIC, MG, CMP, DBIL, LIPID #### [facility] [address] [place] [address] Dr. Karla Lagos AST [Catalytic activity/Vol] 21 U/L Normal 15-37 [facility] Comment on above: Performed By: #### P HOS, URIC, MG, CMP, DBIL, LIPID #### [facility] [address] [place] [address] Dr. Karla Lagos Bilirubin [Mass/Vol] 0.6 mg/dL Normal 0.2-1.0 [facility] Comment on above: Performed By: #### P HOS, URIC, MG, CMP, DBIL, LIPID #### [facility] [address] [place] [address] Dr. Karla Lagos Calcium [Mass/Vol] 9.4 mg/dL Normal 8.5-10.1 [facility] Comment on above: Performed By: #### P HOS, URIC, MG, CMP, DBIL, LIPID #### [facility] [address] [place] [address] Dr. Karla Lagos Chloride [Moles/Vol] 103 mmol/L Normal 98-107 [facility] Comment on above: Performed By: #### P HOS, URIC, MG, CMP, DBIL, LIPID #### [facility] [address] [place] [address] Dr. Karla Lagos CO2 [Moles/Vol] 30.6 mmol/L Normal 21.0-32.0 [facility] Comment on above: Performed By: #### P HOS, URIC, MG, CMP, DBIL, LIPID #### [facility] [address] [place] [address] Dr. Karla Lagos Creatinine [Mass/Vol] 1.34 mg/dL Critically high 0.70-1.30 [facility] Comment on above: Performed By: #### P HOS, URIC, MG, CMP, DBIL, LIPID #### [facility] [address] [address] [address] Karla Lagos EGFR-AF ESTONIAN >60 Normal >=60 [facility] Comment on above: Performed By: #### P HOS, URIC, MG, CMP, DBIL, LIPID #### [facility] [address] [address] [address] Karla Lagos EGFR-NON AF ESTONIAN 54 mL/min/1.73m2 Critically low >=60 [facility] Comment on above: Performed By: #### P HOS, URIC, MG, CMP, DBIL, LIPID #### [facility] [address] [place] [address] Dr. Karla Lagos Globulin (S) [Mass/Vol] 3.2 g/dL Normal [facility] Comment on above: Performed By: #### P HOS, URIC, MG, CMP, DBIL, LIPID #### [facility] [address] [place] [address] Dr. Karla Lagos Glucose [Mass/Vol] 125 mg/dL Critically high 74-106 [facility] Comment on above: Performed By: #### P HOS, URIC, MG, CMP, DBIL, LIPID #### [facility] [address] [place] [address] Dr. Karla Lagos Potassium [Moles/Vol] 5.0 mmol/L Normal 3.5-5.1 [facility] Comment on above: Performed By: #### P HOS, URIC, MG, CMP, DBIL, LIPID #### [facility] [address] [place] [address] Dr. Karla Lagos Protein [Mass/Vol] 7.3 g/dL Normal 6.4-8.2 [facility] Comment on above: Performed By: #### P HOS, URIC, MG, CMP, DBIL, LIPID #### [facility] [address] [address] [address] Karal Lagos Sodium [Moles/Vol] 141 mmol/L Normal 136-145 [facility] Comment on above: Performed By: #### P HOS, URIC, MG, CMP, DBIL, LIPID #### [facility] [address] [place] [address] Dr. Karla Lagos Urea nitrogen [Mass/Vol] 24.0 mg/dL Critically high 7.0-18.0 [facility] Comment on above: Performed By: #### P HOS, URIC, MG, CMP, DBIL, LIPID #### [facility] [address] [place] [address] Dr. Karla Lagos Urea nitrogen/Creatinine [Mass ratio] 17.9 mg/mg Normal [facility] Comment on above: Performed By: #### P HOS, URIC, MG, CMP, DBIL, LIPID #### [facility] [address] [place] [address] Dr. Karla Lagos URIC ACID SERUMon 03-25-2022 Urate [Mass/Vol] 5.0 mg/dL Normal 3.5-7.2 [facility] Comment on above: Performed By: #### P HOS, URIC, MG, CMP, DBIL, LIPID #### [facility] [address] [place] [address] Dr. Karla Lagos FK506 (TACROLIMUS) WHOLE BLO ODon 02-27-2022 Tacrolimus (FK506), Blood 8.0 ng/mL Normal 2.0-20.0 [facility] Comment on above: Result Comment: Trou gh (immediately following transplant) 15.0 . Trough (steady state, 2 weeks or more after transplant): 3.0 - 8.0 . Performed by LC-MS/MS technology. Performed By: #### P HOS, URIC, MG, CMP, DBIL, LIPID #### [facility] [address] [place] [address] Dr. Karla Lagos BK VIRUS PCR QUANTon 022 BKV DNA QUANT PCR PLASMA Negative Normal Negative [facility] Comment on above: Result Comment: No B K DNA detected. . The linear range of the assay is 22 - 100,000,000 IU/mL. Performed By: #### P HOS, URIC, MG, CMP, DBIL, LIPID #### [facility] [address] [place] [address] Dr. Karla Lagos Log10 BKV DNA Plasma Normal [facility] Comment on above: Performed By: #### P HOS, URIC, MG, CMP, DBIL, LIPID #### [facility] [address] [place] [address] Dr. Karla Lagos BILIRUBIN CONJUGATED (DIRECT )on 02-24-2022 BILI, CONJUGATED 0.2 mg/dL Normal 0.0-0.2 [facility] Comment on above: Performed By: #### P HOS, URIC, MG, CMP, DBIL, LIPID #### [facility] [address] [place] [address] Dr. Karla Lagos CBC AUTO DIFFon 02-24-2022 BASO # 0.1 103/ul Normal 0.0-0.1 [facility] Comment on above: Performed By: #### P HOS, URIC, MG, CMP, DBIL, LIPID #### [facility] [address] [place] [address] Dr. Karla Lagos Basophils/100 WBC (Bld) 0.8 % Normal 0.2-2.0 [facility] Comment on above: Performed By: #### P HOS, URIC, MG, CMP, DBIL, LIPID #### [facility] [address] [place] [address] Dr. Karla Lagos EO # 0.1 103/ul Normal 0.0-0.7 [facility] Comment on above: Performed By: #### P HOS, URIC, MG, CMP, DBIL, LIPID #### [facility] [address] [place] [address] Dr. Karla Lagos Eosinophils/100 WBC (Bld) 1.7 % Normal 0.9-7.0 [facility] Comment on above: Performed By: #### P HOS, URIC, MG, CMP, DBIL, LIPID #### [facility] [address] [place] [address] Dr. Karla Lagos Erythrocyte distribution width (RBC) [Ratio] 14.1 % Normal 11.0-15.0 [facility] Comment on above: Performed By: #### P HOS, URIC, MG, CMP, DBIL, LIPID #### [facility] [address] [place] [address] Dr. Karla Lagos Hematocrit (Bld) [Volume fraction] 48.1 % Normal 42.0-54.0 [facility] Comment on above: Performed By: #### P HOS, URIC, MG, CMP, DBIL, LIPID #### [facility] [address] [place] [address] Dr. Karla Lagos Hemoglobin (Bld) [Mass/Vol] 16.0 g/dL Normal 14.0-18.0 [facility] Comment on above: Performed By: #### P HOS, URIC, MG, CMP, DBIL, LIPID #### [facility] [address] [place] [address] Dr. Karla Lagos IG # 0.03 10e3/ul Normal 0.00-0.03 [facility] Comment on above: Performed By: #### P HOS, URIC, MG, CMP, DBIL, LIPID #### [facility] [address] [place] [address] Dr. Karla Lagos IG % 0.5 % Normal 0.0-0.5 [facility] Comment on above: Performed By: #### P HOS, URIC, MG, CMP, DBIL, LIPID #### [facility] [address] [place] [address] Dr. Karla Lagos LYMPH # 1.0 103/ul Critically low 1.2-3.8 [facility] Comment on above: Performed By: #### P HOS, URIC, MG, CMP, DBIL, LIPID #### [facility] [address] [place] [address] Dr. Karla Lagos Lymphocytes/100 WBC (Bld) 16.9 % Critically low 20.5-60.0 [facility] Comment on above: Performed By: #### P HOS, URIC, MG, CMP, DBIL, LIPID #### [facility] [address] [place] [address] Dr. Karla Lagos MANUAL DIFF REQ NO Normal [facility] Comment on above: Performed By: #### P HOS, URIC, MG, CMP, DBIL, LIPID #### [facility] [address] [place] [address] Dr. Karla Lagos MCH (RBC) [Entitic mass] 31.1 pg Normal 25.9-34.0 [facility] Comment on above: Performed By: #### P HOS, URIC, MG, CMP, DBIL, LIPID #### [facility] [address] [place] [address] Dr. Karla Lagos MCHC (RBC) [Mass/Vol] 33.3 g/dL Normal 29.9-35.2 [facility] Comment on above: Performed By: #### P HOS, URIC, MG, CMP, DBIL, LIPID #### [facility] [address] [place] [address] Dr. Karla Lagos MCV (RBC) [Entitic vol] 93.6 fL Normal 80.0-94.0 [facility] Comment on above: Performed By: #### P HOS, URIC, MG, CMP, DBIL, LIPID #### [facility] [address] [place] [address] Dr. Karla Lagos MONO # 0.6 103/ul Normal 0.3-0.8 [facility] Comment on above: Performed By: #### P HOS, URIC, MG, CMP, DBIL, LIPID #### [facility] [address] [place] [address] Dr. Karla Lagos Monocytes/100 WBC (Bld) 10.1 % Normal 1.7-12.0 [facility] Comment on above: Performed By: #### P HOS, URIC, MG, CMP, DBIL, LIPID #### [facility] [address] [place] [address] Dr. Karla Lagos NEUT # 4.2 103/ul Normal 1.4-6.5 [facility] Comment on above: Performed By: #### P HOS, URIC, MG, CMP, DBIL, LIPID #### [facility] [address] [place] [address] Dr. Karla Lagos Neutrophils/100 WBC (Bld) 70.0 % Normal 43.0-75.0 [facility] Comment on above: Performed By: #### P HOS, URIC, MG, CMP, DBIL, LIPID #### [facility] [address] [address] [address] Karla Lagos Platelet mean volume (Bld) [Entitic vol] 10.2 fL Normal 9.5-13.5 [facility] Comment on above: Performed By: #### P HOS, URIC, MG, CMP, DBIL, LIPID #### [facility] [address] [address] [address] Karla Lagos PLT 226 103/ul Normal 150-450 [facility] Comment on above: Performed By: #### P HOS, URIC, MG, CMP, DBIL, LIPID #### [facility] [address] [place] [address] Dr. Karla Lagos RBC 5.14 106/ul Normal 4.70-6.10 [facility] Comment on above: Performed By: #### P HOS, URIC, MG, CMP, DBIL, LIPID #### [facility] [address] [place] [address] Dr. Karla Lagos WBC 6.0 103/ul Normal 4.0-11.0 [facility] Comment on above: Performed By: #### P HOS, URIC, MG, CMP, DBIL, LIPID #### [facility] [address] [place] [address] Dr. Karla Lagos LIPID PROFILEon 02-24-2022 CHOL-HDL RATIO NORM SEE BELOW Normal [facility] Comment on above: Result Comment: 3.3 - 4.4 LOW RISK 4.4 - 7.1 AVERAGE RISK 7.1 - 11.0 MODERATE RISK >11.0 HIGH RISK Performed By: #### P HOS, URIC, MG, CMP, DBIL, LIPID #### [facility] [address] [place] [address] Dr. Karla Lagos Cholesterol [Mass/Vol] 132 mg/dL Normal <=200 [facility] Comment on above: Performed By: #### P HOS, URIC, MG, CMP, DBIL, LIPID #### [facility] [address] [place] [address] Dr. Karla Lagos Cholesterol in HDL [Mass/Vol] 50 mg/dL Normal 40-60 [facility] Comment on above: Performed By: #### P HOS, URIC, MG, CMP, DBIL, LIPID #### [facility] [address] [address] [address] Karla Lagos Cholesterol in LDL [Mass/Vol] 54.6 mg/dL Normal [facility] Comment on above: Performed By: #### P HOS, URIC, MG, CMP, DBIL, LIPID #### [facility] [address] [place] [address] Dr. Karla Lagos Cholesterol.total/Ch olesterol in HDL [Mass ratio] 2.6 {ratio} Normal [facility] Comment on above: Performed By: #### P HOS, URIC, MG, CMP, DBIL, LIPID #### [facility] [address] [place] [address] Dr. Karla Lagos HDL NORMAL > or = 60 mg/dl - LO W CARDIOVASCULAR RISK <40 mg/dl - HIGH CARDIOVASCULAR RISK Normal [facility] Comment on above: Performed By: #### P HOS, URIC, MG, CMP, DBIL, LIPID #### [facility] [address] [place] [address] Dr. Karla Lagos LDL CALC NORMAL SEE BELOW Normal [facility] Comment on above: Result Comment: <100 mg/dl OPTIMAL 100 - 129 mg/dl NEAR OR ABOVE OPTIMAL 130 - 159 mg/dl BORDERLINE HIGH 160 - 189 mg/dl HIGH >190 mg/dl VERY HIGH Performed By: #### P HOS, URIC, MG, CMP, DBIL, LIPID #### [facility] [address] [place] [address] Dr. Karla Lagos Triglyceride [Mass/Vol] 137 mg/dL Normal <=150 [facility] Comment on above: Performed By: #### P HOS, URIC, MG, CMP, DBIL, LIPID #### [facility] [address] [address] [address] Karla Lagos VLDL CALC 27.4 mg/dL Normal [facility] Comment on above: Performed By: #### P HOS, URIC, MG, CMP, DBIL, LIPID #### [facility] [address] [address] [address] Karla Lagos MAGNESIUMon 02-24-2022 Magnesium [Mass/Vol] 1.5 mg/dL Critically low 1.8-2.4 [facility] Comment on above: Performed By: #### P HOS, URIC, MG, CMP, DBIL, LIPID #### [facility] [address] [address] [address] Karla Lagos PHOSPHORUSon 02-24-2022 Phosphate [Mass/Vol] 3.2 mg/dL Normal 2.6-4.7 [facility] Comment on above: Performed By: #### P HOS, URIC, MG, CMP, DBIL, LIPID #### [facility] [address] [place] [address] Dr. Karla Lagos PROF 14(COMP METB)on Albumin [Mass/Vol] 4.1 g/dL Normal 3.4-5.0 [facility] Comment on above: Performed By: #### P HOS, URIC, MG, CMP, DBIL, LIPID #### [facility] [address] [place] [address] Dr. Karla Lagos Albumin/Globulin [Mass ratio] 1.4 {ratio} Normal [facility] Comment on above: Performed By: #### P HOS, URIC, MG, CMP, DBIL, LIPID #### [facility] [address] [address] [address] Karla Lagos ALP [Catalytic activity/Vol] 73 U/L Normal 46-116 [facility] Comment on above: Performed By: #### P HOS, URIC, MG, CMP, DBIL, LIPID #### [facility] [address] [address] [address] Karla Lagos ALT [Catalytic activity/Vol] 27 U/L Normal 16-63 [facility] Comment on above: Performed By: #### P HOS, URIC, MG, CMP, DBIL, LIPID #### [facility] [address] [address] [address] Karla Lagos Anion gap [Moles/Vol] 11.7 mmol/L Normal [facility] Comment on above: Performed By: #### P HOS, URIC, MG, CMP, DBIL, LIPID #### [facility] [address] [place] [address] Dr. Karla Lagos AST [Catalytic activity/Vol] 16 U/L Normal 15-37 [facility] Comment on above: Performed By: #### P HOS, URIC, MG, CMP, DBIL, LIPID #### [facility] [address] [place] [address] Dr. Karla Lagos Bilirubin [Mass/Vol] 0.8 mg/dL Normal 0.2-1.0 [facility] Comment on above: Performed By: #### P HOS, URIC, MG, CMP, DBIL, LIPID #### [facility] [address] [place] [address] Dr. Karla Lagos Calcium [Mass/Vol] 9.1 mg/dL Normal 8.5-10.1 [facility] Comment on above: Performed By: #### P HOS, URIC, MG, CMP, DBIL, LIPID #### [facility] [address] [place] [address] Dr. Karla Lagos Chloride [Moles/Vol] 104 mmol/L Normal 98-107 [facility] Comment on above: Performed By: #### P HOS, URIC, MG, CMP, DBIL, LIPID #### [facility] [address] [place] [address] Dr. Karla Lagos CO2 [Moles/Vol] 29.4 mmol/L Normal 21.0-32.0 [facility] Comment on above: Performed By: #### P HOS, URIC, MG, CMP, DBIL, LIPID #### [facility] [address] [place] [address] Dr. Karla Lagos Creatinine [Mass/Vol] 1.27 mg/dL Normal 0.70-1.30 [facility] Comment on above: Performed By: #### P HOS, URIC, MG, CMP, DBIL, LIPID #### [facility] [address] [place] [address] Dr. Karla Lagos EGFR-AF ESTONIAN >60 Normal >=60 [facility] Comment on above: Performed By: #### P HOS, URIC, MG, CMP, DBIL, LIPID #### [facility] [address] [place] [address] Dr. Karla Lagos EGFR-NON AF ESTONIAN 58 mL/min/1.73m2 Critically low >=60 [facility] Comment on above: Performed By: #### P HOS, URIC, MG, CMP, DBIL, LIPID #### [facility] [address] [address] [address] Karla Lagos Globulin (S) [Mass/Vol] 2.9 g/dL Normal [facility] Comment on above: Performed By: #### P HOS, URIC, MG, CMP, DBIL, LIPID #### [facility] [address] [place] [address] Dr. Karla Lagos Glucose [Mass/Vol] 113 mg/dL Critically high 74-106 [facility] Comment on above: Performed By: #### P HOS, URIC, MG, CMP, DBIL, LIPID #### [facility] [address] [place] [address] Dr. Karla Lagos Potassium [Moles/Vol] 4.1 mmol/L Normal 3.5-5.1 [facility] Comment on above: Performed By: #### P HOS, URIC, MG, CMP, DBIL, LIPID #### [facility] [address] [place] [address] Dr. Karla Lagos Protein [Mass/Vol] 7.0 g/dL Normal 6.4-8.2 [facility] Comment on above: Performed By: #### P HOS, URIC, MG, CMP, DBIL, LIPID #### [facility] [address] [place] [address] Dr. Karla Lagos Sodium [Moles/Vol] 141 mmol/L Normal 136-145 [facility] Comment on above: Performed By: #### P HOS, URIC, MG, CMP, DBIL, LIPID #### [facility] [address] [place] [address] Dr. Karla Lagos Urea nitrogen [Mass/Vol] 18.0 mg/dL Normal 7.0-18.0 [facility] Comment on above: Performed By: #### P HOS, URIC, MG, CMP, DBIL, LIPID #### [facility] [address] [place], [place] [address] Dr. Karla Lagos Urea nitrogen/Creatinine [Mass ratio] 14.2 mg/mg Normal [facility] Comment on above: Performed By: #### P HOS, URIC, MG, CMP, DBIL, LIPID #### [facility] [address] [place], [place] [address] Dr. Karla Lagos URIC ACID SERUMon 02-24-2022 Urate [Mass/Vol] 6.0 mg/dL Normal 3.5-7.2 [facility] Comment on above: Performed By: #### P HOS, URIC, MG, CMP, DBIL, LIPID #### [facility] [address] [place], [place] [address] Dr. Karla Lagos XR Chest 2 Views*on 01-14-20 22 XR Chest 2 Views* FINDINGS: Comparison made with prior examination of September 24, 2020. Improved aeration with no persistent parenchymal consolidation. No pleural or pericardial effusions. Normal cardiac silhouette size. Sternotomy wires. Left central cardiac pacemaker. IMPRESSION: 1. Minimal residual post-inflammatory sequela. Report reported and signed by Anjum Remy on 01/13/2022 1143 Normal [facility] ECHOCARDIO M/2D COMPLETEon 0 09-28-2021 ECHOCARDIO M/2D COMPLETE Patient: VISHAL DUKE Exam Date: 09/28/2021 : 1960 Gender:M Ordering : DR EFDERICO CHESTER M.D. Admission #: [id number] Family : DR ROSA M GONZALES M.D. Order #: [id number] CLICK HERE TO VIEW EXAM ECHOCARDIOGRAM REPORT [...] Area(A4C): 20.50 cm2 Left Atrium Systolic Volume(A2C): 56226 mm3 Left Atrium Systolic Volume(A4C): 30041 mm3 Mitral Valve MV E to A [...] Frazier M.D. on 09/28/2021 at 19:38 Normal [facility] Bilirubin, Directon 09-28-19 22 DBIL <0.2 Normal [facility] Comment on above: Result Comment: Refe rence range change 03/03/2017. Prior reference range 0.1-0.3 mg/dL. Performed By: #### C BCAD, MG, URIC, LIPD, PHOS, CMP, DBIL #### [facility] [address] [place], [place] [id number] Complete Blood Count with Au to Diffon 09-27-2021 Basophils (Bld) [#/Vol] 0.06 10*3/uL Normal 0.00-0.20 [facility] Comment on above: Performed By: #### C BCAD, MG, URIC, LIPD, PHOS, CMP, DBIL #### [facility] [address] [place], [place] [id number] Basophils/100 WBC (Bld) 1.0 % Normal [facility] Comment on above: Performed By: #### C BCAD, MG, URIC, LIPD, PHOS, CMP, DBIL #### [facility] [address], [place] [id number] Eosinophils (Bld) [#/Vol] 0.09 10*3/uL Normal 0.02-0.50 [facility] Comment on above: Performed By: #### C BCAD, MG, URIC, LIPD, PHOS, CMP, DBIL #### [facility] [address] [place], [place] [id number] Eosinophils/100 WBC (Bld) 1.5 % Normal [facility] Comment on above: Performed By: #### C BCAD, MG, URIC, LIPD, PHOS, CMP, DBIL #### [facility] [address] [place], [place] [id number] Erythrocyte distribution width (RBC) [Ratio] 14.1 % Normal 11.0-15.0 [facility] Comment on above: Performed By: #### C BCAD, MG, URIC, LIPD, PHOS, CMP, DBIL #### [facility] [address] [place], [place] [id number] Hematocrit (Bld) [Volume fraction] 51.6 % High 38.5-50.0 [facility] Comment on above: Performed By: #### C BCAD, MG, URIC, LIPD, PHOS, CMP, DBIL #### [facility] [address] [place], [place] [id number] Hemoglobin (Bld) [Mass/Vol] 16.5 g/dL Normal 13.0-17.1 [facility] Comment on above: Performed By: #### C BCAD, MG, URIC, LIPD, PHOS, CMP, DBIL #### [facility] [address] [place], [place] [id number] Lymphocytes (Bld) [#/Vol] 1.0 10*3/uL Normal 0.9-3.9 [facility] Comment on above: Performed By: #### C BCAD, MG, URIC, LIPD, PHOS, CMP, DBIL #### [facility] [address] [place], [place] [id number] Lymphocytes/100 WBC (Bld) 16.3 % Normal [facility] Comment on above: Performed By: #### C BCAD, MG, URIC, LIPD, PHOS, CMP, DBIL #### [facility] [address] [place], [place] [id number] MCH (RBC) [Entitic mass] 29.9 pg Normal 27.0-33.0 [facility] Comment on above: Performed By: #### C BCAD, MG, URIC, LIPD, PHOS, CMP, DBIL #### [facility] [address] [place], [place] [id number] MCHC (RBC) [Mass/Vol] 32.0 g/dL Normal 32.0-36.0 [facility] Comment on above: Performed By: #### C BCAD, MG, URIC, LIPD, PHOS, CMP, DBIL #### [facility] [address] [facility] [place] [id number] MCV (RBC) [Entitic vol] 94 fL Normal 80-100 [facility] Comment on above: Performed By: #### C BCAD, MG, URIC, LIPD, PHOS, CMP, DBIL #### [facility] [address] [facility] [place] [id number] Monocytes (Bld) [#/Vol] 0.7 10*3/uL Normal 0.2-0.9 [facility] Comment on above: Performed By: #### C BCAD, MG, URIC, LIPD, PHOS, CMP, DBIL #### [facility] [address] [place], [place] [id number] Monocytes/100 WBC (Bld) 11.1 % Normal [facility] Comment on above: Performed By: #### C BCAD, MG, URIC, LIPD, PHOS, CMP, DBIL #### [facility] [address] [place], [place] [id number] Neutrophils (Bld) [#/Vol] 4.2 10*3/uL Normal 1.5-7.8 [facility] Comment on above: Performed By: #### C BCAD, MG, URIC, LIPD, PHOS, CMP, DBIL #### [facility] [address] [facility] [place] [id number] Neutrophils/100 WBC (Bld) 69.8 % Normal [facility] Comment on above: Performed By: #### C BCAD, MG, URIC, LIPD, PHOS, CMP, DBIL #### [facility] [address] [facility] [place] [id number] Platelet mean volume (Bld) [Entitic vol] 10.80 fL Normal 7.50-12.50 [facility] Comment on above: Performed By: #### C BCAD, MG, URIC, LIPD, PHOS, CMP, DBIL #### [facility] [address] [facility] [place] [id number] Platelets (Bld) [#/Vol] 247 10*3/uL Normal 140-400 [facility] Comment on above: Performed By: #### C BCAD, MG, URIC, LIPD, PHOS, CMP, DBIL #### [facility] [address] [place], [place] [id number] RBC (Bld) [#/Vol] 5.52 10*6/uL Normal 4.20-5.80 [facility] Comment on above: Performed By: #### C BCAD, MG, URIC, LIPD, PHOS, CMP, DBIL #### [facility] [address] [place], [place] [id number] RDW-SD 48.9 fL Normal 37.0-50.0 [facility] Comment on above: Performed By: #### C BCAD, MG, URIC, LIPD, PHOS, CMP, DBIL #### [facility] [address] [place], [place] [id number] WBC (Bld) [#/Vol] 6.0 10*3/uL Normal 3.8-11.0 [facility] Teacher Comment on above: Performed By: #### C BCAD, MG, URIC, LIPD, PHOS, CMP, DBIL #### [facility] [address] [place], [place] [id number] Comprehensive Metabolic Pane [facility] 09-27-2021 Albumin [Mass/Vol] 5.0 g/dL Normal 3.6-5.1 [facility] Comment on above: Performed By: #### C BCAD, MG, URIC, LIPD, PHOS, CMP, DBIL #### [facility] [address] [place], [place] [id number] Albumin/Globulin [Mass ratio] 2.8 {ratio} High 1.0-2.5 [facility] Comment on above: Performed By: #### C BCAD, MG, URIC, LIPD, PHOS, CMP, DBIL #### [facility] [address] [place], [place] [id number] ALP [Catalytic activity/Vol] 79 U/L Normal 40-129 [facility] Comment on above: Performed By: #### C BCAD, MG, URIC, LIPD, PHOS, CMP, DBIL #### [facility] [address] [place], [place] [id number] ALT [Catalytic activity/Vol] 29 U/L Normal 9-46 [facility] Comment on above: Result Comment: 03/17 Female reference range changed. Performed By: #### C BCAD, MG, URIC, LIPD, PHOS, CMP, DBIL #### [facility] [address] [place], [place] [id number] Anion gap [Moles/Vol] 23 mmol/L High 12-20 [facility] Comment on above: Result Comment: Effe ctive 04/22/2019 reference range changed. Performed By: #### C BCAD, MG, URIC, LIPD, PHOS, CMP, DBIL #### [facility] [address] [place], [place] [id number] AST [Catalytic activity/Vol] 25 U/L Normal 10-40 [facility] Comment on above: Performed By: #### C BCAD, MG, URIC, LIPD, PHOS, CMP, DBIL #### [facility] [address] [place], [place] [id number] Bilirubin [Mass/Vol] 0.66 mg/dL Normal 0.30-1.20 [facility] Comment on above: Performed By: #### C BCAD, MG, URIC, LIPD, PHOS, CMP, DBIL #### [facility] [address] [place], [place] [id number] BUN/CREA 18 Ratio Normal 6-22 [facility] Comment on above: Performed By: #### C BCAD, MG, URIC, LIPD, PHOS, CMP, DBIL #### [facility] [address] [place], [place] [id number] Calcium [Mass/Vol] 10.0 mg/dL Normal 8.6-10.[address] [facility] Comment on above: Performed By: #### C BCAD, MG, URIC, LIPD, PHOS, CMP, DBIL #### [facility] [address], [place] [id number] Chloride [Moles/Vol] 105 mmol/L Normal 98-107 [facility] Comment on above: Performed By: #### C BCAD, MG, URIC, LIPD, PHOS, CMP, DBIL #### [facility] [address], [place] [id number] CO2 [Moles/Vol] 20 mmol/L Normal 20-31 [facility] Comment on above: Performed By: #### C BCAD, MG, URIC, LIPD, PHOS, CMP, DBIL #### [facility] [address] [place], [place] [id number] Creatinine [Mass/Vol] 1.2 mg/dL Normal 0.7-1.4 [facility] Comment on above: Performed By: #### C BCAD, MG, URIC, LIPD, PHOS, CMP, DBIL #### [facility] [address] [place], [place] [id number] eGFRAA 72 mL/min/1.73m2 Normal >60 [facility] Comment on above: Performed By: #### C BCAD, MG, URIC, LIPD, PHOS, CMP, DBIL #### [facility] [address], [place] [id number] eGFRNAA 59 mL/min/1.73m2 Low >60 [facility] Comment on above: Performed By: #### C BCAD, MG, URIC, LIPD, PHOS, CMP, DBIL #### [facility] [address], [place] [id number] Globulin (S) [Mass/Vol] 1.8 g/dL Low 1.9-3.7 [facility] Comment on above: Performed By: #### C BCAD, MG, URIC, LIPD, PHOS, CMP, DBIL #### [facility] [address] [place], [place] [id number] Glucose [Mass/Vol] 121 mg/dL High 65-[address] [facility] Comment on above: Result Comment: For FASTING Glucose --- ADA reference ranges: Normal 65-99 mg/dl Prediabetes 100-125 Diabetes >/= 126 Performed By: #### C BCAD, MG, URIC, LIPD, PHOS, CMP, DBIL #### [facility] [address], [place] [id number] Potassium [Moles/Vol] 4.5 mmol/L Normal 3.5-5.5 [facility] Comment on above: Performed By: #### C BCAD, MG, URIC, LIPD, PHOS, CMP, DBIL #### [facility] [address] [place], [place] [id number] Protein [Mass/Vol] 6.8 g/dL Normal 6.1-8.1 [facility] [place] [facility] Comment on above: Performed By: #### C BCAD, MG, URIC, LIPD, PHOS, CMP, DBIL #### [facility] [address] [place], [place] [id number] Sodium [Moles/Vol] 143 mmol/L Normal 135-146 [facility] [place] [facility] Comment on above: Performed By: #### C BCAD, MG, URIC, LIPD, PHOS, CMP, DBIL #### [facility] [address] [place], [place] [id number] Urea nitrogen [Mass/Vol] 23 mg/dL Normal 7-25 [facility] Comment on above: Performed By: #### C BCAD, MG, URIC, LIPD, PHOS, CMP, DBIL #### [facility] [address] [place], [place] [id number] Lipid Panelon 09-27-2021 Cholesterol [Mass/Vol] 131 mg/dL Normal 125-200 [facility] Comment on above: Result Comment: Low risk < 200mg/dL Borderline risk 201-239 mg/dl High risk > or equal to 240 Performed By: #### C BCAD, MG, URIC, LIPD, PHOS, CMP, DBIL #### [facility] [address] [place], [place] [id number] Cholesterol in HDL [Mass/Vol] 43 mg/dL Normal >40 [facility] Comment on above: Result Comment: High Cardiovascular Risk HDL <40 mg/dL Low Cardiovascular Risk HDL > or equal to 60 mg/dl Performed By: #### C BCAD, MG, URIC, LIPD, PHOS, CMP, DBIL #### [facility] [address] [place], [place] [id number] Cholesterol in LDL [Mass/Vol] 52 mg/dL Normal [place] [facility] Comment on above: Result Comment: LDL ATP III CLASSIFICATION LDL less than 100 mg/dl Optimal LDL 100-129 mg/dl Near or above optimal LDL 130-159 Borderline high LDL 160-189 High LDL greater than 189 mg/dl Very High Performed By: #### C BCAD, MG, URIC, LIPD, PHOS, CMP, DBIL #### [facility] [address] [place], [place] [id number] Cholesterol in VLDL [Mass/Vol] 36 mg/dL Normal [facility] Comment on above: Performed By: #### C BCAD, MG, URIC, LIPD, PHOS, CMP, DBIL #### [facility] [address] [place], [place] [id number] Cholesterol.total/Ch olesterol in HDL [Mass ratio] 3 {ratio} Normal [facility] Comment on above: Performed By: #### C BCAD, MG, URIC, LIPD, PHOS, CMP, DBIL #### [facility] [address] [place], [place] [id number] Triglyceride [Mass/Vol] 180 mg/dL High 30-150 [facility] Comment on above: Result Comment: TRIG ATPIII CLASSIFICATIONS TRIG less than 150 mg/dl Normal TRIG 150-199 mg/dl Borderline High TRIG 200-500 mg/dl High TRIG greather than 500 mg/dl Very High Performed By: #### C BCAD, MG, URIC, LIPD, PHOS, CMP, DBIL #### [facility] [address] [place], [place] [id number] Magnesiumon 09-27-2021 Magnesium [Mass/Vol] 1.9 mg/dL Normal 1.5-2.3 [facility] Comment on above: Performed By: #### C BCAD, MG, URIC, LIPD, PHOS, CMP, DBIL #### [facility] [address] [place], [place] [id number] Phosphoruson 09-27-2021 Phosphate [Mass/Vol] 3.6 mg/dL Normal 2.2-4.4 [facility] Comment on above: Performed By: #### C BCAD, MG, URIC, LIPD, PHOS, CMP, DBIL #### [facility] [address] [place], [place] [id number] Uric Acidon 09-27-2021 URIC 6.5 mg/dL Normal 4.0-8.0 [facility] Comment on above: Result Comment: Refe rence range change 03/03/2017. Prior reference range F 2.4-5.7mg/dL. M 3.4-7.0 mg/dL. Performed By: #### C BCAD, MG, URIC, LIPD, PHOS, CMP, DBIL #### [facility] [address] [place], [place] [id number] Bilirubin, Directon 08-25-19 22 DBIL <0.2 Normal [facility] Comment on above: Result Comment: Refe rence range change 03/03/2017. Prior reference range 0.1-0.3 mg/dL. Performed By: #### C BCAD, MG, URIC, LIPD, PHOS, CMP, DBIL #### [facility] [address] [place], [place] [id number] Complete Blood Count with Au to Diffon 08-24-2021 Basophils (Bld) [#/Vol] 0.06 10*3/uL Normal 0.00-0.20 [facility] Comment on above: Performed By: #### C BCAD, MG, URIC, LIPD, PHOS, CMP, DBIL #### [facility] [address] [place], [place] [id number] Basophils/100 WBC (Bld) 1.1 % Normal [facility] Comment on above: Performed By: #### C BCAD, MG, URIC, LIPD, PHOS, CMP, DBIL #### [facility] [address] [place], [place] [id number] Eosinophils (Bld) [#/Vol] 0.10 10*3/uL Normal 0.02-0.50 [facility] Comment on above: Performed By: #### C BCAD, MG, URIC, LIPD, PHOS, CMP, DBIL #### [facility] [address] [place], [place] [id number] Eosinophils/100 WBC (Bld) 1.8 % Normal [facility] Comment on above: Performed By: #### C BCAD, MG, URIC, LIPD, PHOS, CMP, DBIL #### [facility] [address] [place], [place] [id number] Erythrocyte distribution width (RBC) [Ratio] 14.5 % Normal 11.0-15.0 [facility] Comment on above: Performed By: #### C BCAD, MG, URIC, LIPD, PHOS, CMP, DBIL #### [facility] [address] [place], [place] [id number] Hematocrit (Bld) [Volume fraction] 50.4 % High 38.5-50.0 [facility] Comment on above: Performed By: #### C BCAD, MG, URIC, LIPD, PHOS, CMP, DBIL #### [facility] [address] [place], [place] [id number] Hemoglobin (Bld) [Mass/Vol] 16.4 g/dL Normal 13.0-17.1 [facility] Comment on above: Performed By: #### C BCAD, MG, URIC, LIPD, PHOS, CMP, DBIL #### [facility] [address] [place], [place] [id number] Lymphocytes (Bld) [#/Vol] 0.9 10*3/uL Normal 0.9-3.9 [facility] Comment on above: Performed By: #### C BCAD, MG, URIC, LIPD, PHOS, CMP, DBIL #### [facility] [address] [place], [place] [id number] Lymphocytes/100 WBC (Bld) 15.2 % Normal [facility] Comment on above: Performed By: #### C BCAD, MG, URIC, LIPD, PHOS, CMP, DBIL #### [facility] [address] [place], [place] [id number] MCH (RBC) [Entitic mass] 30.5 pg Normal 27.0-33.0 [facility] Comment on above: Performed By: #### C BCAD, MG, URIC, LIPD, PHOS, CMP, DBIL #### [facility] [address] [place], [place] [id number] MCHC (RBC) [Mass/Vol] 32.5 g/dL Normal 32.0-36.0 [facility] Comment on above: Performed By: #### C BCAD, MG, URIC, LIPD, PHOS, CMP, DBIL #### [facility] [address] [place], [place] [id number] MCV (RBC) [Entitic vol] 94 fL Normal 80-100 [facility] Comment on above: Performed By: #### C BCAD, MG, URIC, LIPD, PHOS, CMP, DBIL #### [facility] [address] [place], [place] [id number] Monocytes (Bld) [#/Vol] 0.7 10*3/uL Normal 0.2-0.9 [facility] Comment on above: Performed By: #### C BCAD, MG, URIC, LIPD, PHOS, CMP, DBIL #### [facility] [address] [place], [place] [id number] Monocytes/100 WBC (Bld) 12.7 % Normal [facility] Comment on above: Performed By: #### C BCAD, MG, URIC, LIPD, PHOS, CMP, DBIL #### [facility] [address] [place], [place] [id number] Neutrophils (Bld) [#/Vol] 3.9 10*3/uL Normal 1.5-7.8 [facility] Comment on above: Performed By: #### C BCAD, MG, URIC, LIPD, PHOS, CMP, DBIL #### [facility] [address] [place], [place] [id number] Neutrophils/100 WBC (Bld) 68.7 % Normal [facility] Comment on above: Performed By: #### C BCAD, MG, URIC, LIPD, PHOS, CMP, DBIL #### [facility] [address] [place], [place] [id number] Platelet mean volume (Bld) [Entitic vol] 11.20 fL Normal 7.50-12.50 [facility] Comment on above: Performed By: #### C BCAD, MG, URIC, LIPD, PHOS, CMP, DBIL #### [facility] [address] [place], [place] [id number] Platelets (Bld) [#/Vol] 230 10*3/uL Normal 140-400 [facility] Comment on above: Performed By: #### C BCAD, MG, URIC, LIPD, PHOS, CMP, DBIL #### [facility] [address] [place], [place] [id number] RBC (Bld) [#/Vol] 5.38 10*6/uL Normal 4.20-5.80 [facility] Comment on above: Performed By: #### C BCAD, MG, URIC, LIPD, PHOS, CMP, DBIL #### [facility] [address] [place], [place] [id number] RDW-SD 49.1 fL Normal 37.0-50.0 [facility] Comment on above: Performed By: #### C BCAD, MG, URIC, LIPD, PHOS, CMP, DBIL #### [facility] [address] [place], [place] [id number] WBC (Bld) [#/Vol] 5.6 10*3/uL Normal 3.8-11.0 [facility] Comment on above: Performed By: #### C BCAD, MG, URIC, LIPD, PHOS, CMP, DBIL #### [facility] [address] [place], [place] [id number] Comprehensive Metabolic Pane [facility] 08-24-2021 Albumin [Mass/Vol] 5.0 g/dL Normal 3.6-5.1 [facility] Teacher Comment on above: Performed By: #### C BCAD, MG, URIC, LIPD, PHOS, CMP, DBIL #### [facility] [address] [place], [place] [id number] Albumin/Globulin [Mass ratio] 2.6 {ratio} High 1.0-2.5 [facility] Comment on above: Performed By: #### C BCAD, MG, URIC, LIPD, PHOS, CMP, DBIL #### [facility] [address] [place], [place] [id number] ALP [Catalytic activity/Vol] 75 U/L Normal 40-129 [place] [facility] Comment on above: Performed By: #### C BCAD, MG, URIC, LIPD, PHOS, CMP, DBIL #### [facility] [address] [place], [place] [id number] ALT [Catalytic activity/Vol] 30 U/L Normal 9-46 [facility] Comment on above: Result Comment: 03/17 Female reference range changed. Performed By: #### C BCAD, MG, URIC, LIPD, PHOS, CMP, DBIL #### [facility] [address] [place], [place] [id number] Anion gap [Moles/Vol] 18 mmol/L Normal 12-20 [facility] Comment on above: Result Comment: Effe ctive 04/22/2019 reference range changed. Performed By: #### C BCAD, MG, URIC, LIPD, PHOS, CMP, DBIL #### [facility] [address] [place], [place] [id number] AST [Catalytic activity/Vol] 26 U/L Normal 10-40 [facility] Comment on above: Performed By: #### C BCAD, MG, URIC, LIPD, PHOS, CMP, DBIL #### [facility] [address] [place], [place] [id number] Bilirubin [Mass/Vol] 0.67 mg/dL Normal 0.30-1.20 [facility] Comment on above: Performed By: #### C BCAD, MG, URIC, LIPD, PHOS, CMP, DBIL #### [facility] [address] [place], [place] [id number] BUN/CREA 19 Ratio Normal 6-22 [facility] Comment on above: Performed By: #### C BCAD, MG, URIC, LIPD, PHOS, CMP, DBIL #### [facility] [address] [place], [place] [id number] Calcium [Mass/Vol] 9.9 mg/dL Normal 8.6-10.[address] [facility] Comment on above: Performed By: #### C BCAD, MG, URIC, LIPD, PHOS, CMP, DBIL #### [facility] [address], [place] [id number] Chloride [Moles/Vol] 103 mmol/L Normal 98-107 [facility] Comment on above: Performed By: #### C BCAD, MG, URIC, LIPD, PHOS, CMP, DBIL #### [facility] [address], [place] [id number] CO2 [Moles/Vol] 25 mmol/L Normal 20-31 [facility] Comment on above: Performed By: #### C BCAD, MG, URIC, LIPD, PHOS, CMP, DBIL #### [facility] [address], [place] [id number] Creatinine [Mass/Vol] 1.1 mg/dL Normal 0.7-1.4 [facility] Specialist Comment on above: Performed By: #### C BCAD, MG, URIC, LIPD, PHOS, CMP, DBIL #### [facility] [address] [place], [place] [id number] eGFRAA 81 mL/min/1.73m2 Normal >60 [facility] Specialist Comment on above: Performed By: #### C BCAD, MG, URIC, LIPD, PHOS, CMP, DBIL #### [facility] [address] [place], [place] [id number] eGFRNAA 67 mL/min/1.73m2 Normal >60 [facility] Specialist Comment on above: Performed By: #### C BCAD, MG, URIC, LIPD, PHOS, CMP, DBIL #### [facility] [address] [place], [place] [id number] Globulin (S) [Mass/Vol] 1.9 g/dL Normal 1.9-3.7 [facility] Comment on above: Performed By: #### C BCAD, MG, URIC, LIPD, PHOS, CMP, DBIL #### [facility] [address] [place], [place] [id number] Glucose [Mass/Vol] 125 mg/dL High 65-[address] [facility] Comment on above: Result Comment: For FASTING Glucose --- ADA reference ranges: Normal 65-99 mg/dl Prediabetes 100-125 Diabetes >/= 126 Performed By: #### C BCAD, MG, URIC, LIPD, PHOS, CMP, DBIL #### [facility] [address] [place], [place] [id number] Potassium [Moles/Vol] 4.2 mmol/L Normal 3.5-5.5 [facility] Teacher Comment on above: Performed By: #### C BCAD, MG, URIC, LIPD, PHOS, CMP, DBIL #### [facility] [address] [place], [place] [id number] Protein [Mass/Vol] 6.9 g/dL Normal 6.1-8.1 [facility] Teacher Comment on above: Performed By: #### C BCAD, MG, URIC, LIPD, PHOS, CMP, DBIL #### [facility] [address] [place], [place] [id number] Sodium [Moles/Vol] 141 mmol/L Normal 135-146 [facility] Teacher Comment on above: Performed By: #### C BCAD, MG, URIC, LIPD, PHOS, CMP, DBIL #### [facility] [address] [place], [place] [id number] Urea nitrogen [Mass/Vol] 22 mg/dL Normal 7-25 [facility] Teacher Comment on above: Performed By: #### C BCAD, MG, URIC, LIPD, PHOS, CMP, DBIL #### [facility] [address] [place], [place] [id number] Hemoglobin A1Con 08-24-2021 EAG 134.11 Normal [facility] Teacher Comment on above: Performed By: #### C BCAD, MG, URIC, LIPD, PHOS, CMP, DBIL #### [facility] [address] [place], [place] [id number] HbA1c (Bld) [Mass fraction] 6.3 % High 4.0-6.0 [facility] Teacher Comment on above: Performed By: #### C BCAD, MG, URIC, LIPD, PHOS, CMP, DBIL #### [facility] [address] [place], [place] [id number] Lipid Panelon 08-24-2021 Cholesterol [Mass/Vol] 110 mg/dL Low 125-200 [facility] Teacher Comment on above: Result Comment: Low risk < 200mg/dL Borderline risk 201-239 mg/dl High risk > or equal to 240 Performed By: #### C BCAD, MG, URIC, LIPD, PHOS, CMP, DBIL #### [facility] [address] [place], [place] [id number] Cholesterol in HDL [Mass/Vol] 38 mg/dL Low >40 [facility] Teacher Comment on above: Result Comment: High Cardiovascular Risk HDL <40 mg/dL Low Cardiovascular Risk HDL > or equal to 60 mg/dl Performed By: #### C BCAD, MG, URIC, LIPD, PHOS, CMP, DBIL #### [facility] [address] [place], [place] [id number] Cholesterol in LDL [Mass/Vol] 46 mg/dL Normal [facility] Specialist Comment on above: Result Comment: LDL ATP III CLASSIFICATION LDL less than 100 mg/dl Optimal LDL 100-129 mg/dl Near or above optimal LDL 130-159 Borderline high LDL 160-189 High LDL greater than 189 mg/dl Very High Performed By: #### C BCAD, MG, URIC, LIPD, PHOS, CMP, DBIL #### [facility] [address] [facility] [place] [id number] Cholesterol in VLDL [Mass/Vol] 26 mg/dL Normal [facility] Teacher Comment on above: Performed By: #### C BCAD, MG, URIC, LIPD, PHOS, CMP, DBIL #### [facility] [address] [place], [place] [id number] Cholesterol.total/Ch olesterol in HDL [Mass ratio] 3 {ratio} Normal [facility] Teacher Comment on above: Performed By: #### C BCAD, MG, URIC, LIPD, PHOS, CMP, DBIL #### [facility] [address] [place], [place] [id number] Triglyceride [Mass/Vol] 131 mg/dL Normal 30-150 [facility] Teacher Comment on above: Result Comment: TRIG ATPIII CLASSIFICATIONS TRIG less than 150 mg/dl Normal TRIG 150-199 mg/dl Borderline High TRIG 200-500 mg/dl High TRIG greather than 500 mg/dl Very High Performed By: #### C BCAD, MG, URIC, LIPD, PHOS, CMP, DBIL #### [facility] [address] [place], [place] [id number] Magnesiumon 08-24-2021 Magnesium [Mass/Vol] 2.0 mg/dL Normal 1.5-2.3 [facility] Specialist Comment on above: Performed By: #### C BCAD, MG, URIC, LIPD, PHOS, CMP, DBIL #### [facility] [address] [place], [place] [id number] Phosphoruson 08-24-2021 Phosphate [Mass/Vol] 3.5 mg/dL Normal 2.2-4.4 [facility] Comment on above: Performed By: #### C BCAD, MG, URIC, LIPD, PHOS, CMP, DBIL #### [facility] [address] [place], [place] [id number] Uric Acidon 08-24-2021 URIC 6.6 mg/dL Normal 4.0-8.0 [facility] Specialist Comment on above: Result Comment: Refe rence range change 03/03/2017. Prior reference range F 2.4-5.7mg/dL. M 3.4-7.0 mg/dL. Performed By: #### C BCAD, MG, URIC, LIPD, PHOS, CMP, DBIL #### [facility] [address] [place], [place] [id number] Bilirubin, Directon 07-30-19 DBIL <0.2 Normal [facility] Specialist Comment on above: Result Comment: Refe rence range change 03/03/2017. Prior reference range 0.1-0.3 mg/dL. Performed By: #### C BCAD, MG, URIC, LIPD, PHOS, CMP, DBIL #### [facility] [address] [place], [place] [id number] Complete Blood Count with Au to Diffon 07-29-2021 Basophils (Bld) [#/Vol] 0.07 10*3/uL Normal 0.00-0.20 [facility] Specialist Comment on above: Performed By: #### C BCAD, MG, URIC, LIPD, PHOS, CMP, DBIL #### [facility] [address] [place], [place] [id number] Basophils/100 WBC (Bld) 1.1 % Normal [facility] Specialist Comment on above: Performed By: #### C BCAD, MG, URIC, LIPD, PHOS, CMP, DBIL #### [facility] [address] [place], [place] [id number] Eosinophils (Bld) [#/Vol] 0.15 10*3/uL Normal 0.02-0.50 [facility] Specialist Comment on above: Performed By: #### C BCAD, MG, URIC, LIPD, PHOS, CMP, DBIL #### [facility] [address] [place], [place] [id number] Eosinophils/100 WBC (Bld) 2.4 % Normal [facility] Specialist Comment on above: Performed By: #### C BCAD, MG, URIC, LIPD, PHOS, CMP, DBIL #### [facility] [address] [place], [place] [id number] Erythrocyte distribution width (RBC) [Ratio] 14.0 % Normal 11.0-15.0 [facility] Specialist Comment on above: Performed By: #### C BCAD, MG, URIC, LIPD, PHOS, CMP, DBIL #### [facility] [address] [place], [place] [id number] Hematocrit (Bld) [Volume fraction] 50.3 % High 38.5-50.0 [facility] Specialist Comment on above: Performed By: #### C BCAD, MG, URIC, LIPD, PHOS, CMP, DBIL #### [facility] [address] [place], [place] [id number] Hemoglobin (Bld) [Mass/Vol] 16.5 g/dL Normal 13.0-17.1 [facility] Teacher Comment on above: Performed By: #### C BCAD, MG, URIC, LIPD, PHOS, CMP, DBIL #### [facility] [address], [place] [id number] Lymphocytes (Bld) [#/Vol] 0.9 10*3/uL Normal 0.9-3.9 [facility] Specialist Comment on above: Performed By: #### C BCAD, MG, URIC, LIPD, PHOS, CMP, DBIL #### [facility] [address], [place] [id number] Lymphocytes/100 WBC (Bld) 13.4 % Normal [facility] Specialist Comment on above: Performed By: #### C BCAD, MG, URIC, LIPD, PHOS, CMP, DBIL #### [facility] [address] [place], [place] [id number] MCH (RBC) [Entitic mass] 29.9 pg Normal 27.0-33.0 [facility] Specialist Comment on above: Performed By: #### C BCAD, MG, URIC, LIPD, PHOS, CMP, DBIL #### [facility] [address] [place], [place] [id number] MCHC (RBC) [Mass/Vol] 32.8 g/dL Normal 32.0-36.0 [facility] Specialist Comment on above: Performed By: #### C BCAD, MG, URIC, LIPD, PHOS, CMP, DBIL #### [facility] [address] [place], [place] [id number] MCV (RBC) [Entitic vol] 91 fL Normal 80-100 [facility] Specialist Comment on above: Performed By: #### C BCAD, MG, URIC, LIPD, PHOS, CMP, DBIL #### [facility] [address] [place], [place] [id number] Monocytes (Bld) [#/Vol] 0.5 10*3/uL Normal 0.2-0.9 [facility] Specialist Comment on above: Performed By: #### C BCAD, MG, URIC, LIPD, PHOS, CMP, DBIL #### [facility] [address] [place], [place] [id number] Monocytes/100 WBC (Bld) 8.5 % Normal [facility] Teacher Comment on above: Performed By: #### C BCAD, MG, URIC, LIPD, PHOS, CMP, DBIL #### [facility] [address] [place], [place] [id number] Neutrophils (Bld) [#/Vol] 4.7 10*3/uL Normal 1.5-7.8 [place] [facility] Teacher Comment on above: Performed By: #### C BCAD, MG, URIC, LIPD, PHOS, CMP, DBIL #### [facility] [address] [place], [place] [id number] Neutrophils/100 WBC (Bld) 73.8 % Normal [facility] Comment on above: Performed By: #### C BCAD, MG, URIC, LIPD, PHOS, CMP, DBIL #### [facility] [address] [place], [place] [id number] Platelet mean volume (Bld) [Entitic vol] 10.40 fL Normal 7.50-12.50 [facility] Comment on above: Performed By: #### C BCAD, MG, URIC, LIPD, PHOS, CMP, DBIL #### [facility] [address] [place], [place] [id number] Platelets (Bld) [#/Vol] 266 10*3/uL Normal 140-400 [facility] Comment on above: Performed By: #### C BCAD, MG, URIC, LIPD, PHOS, CMP, DBIL #### [facility] [address] [place], [place] [id number] RBC (Bld) [#/Vol] 5.51 10*6/uL Normal 4.20-5.80 [facility] Comment on above: Performed By: #### C BCAD, MG, URIC, LIPD, PHOS, CMP, DBIL #### [facility] [address], [place] [id number] RDW-SD 47.4 fL Normal 37.0-50.0 [facility] Specialist Comment on above: Performed By: #### C BCAD, MG, URIC, LIPD, PHOS, CMP, DBIL #### [facility] [address] [place], [place] [id number] WBC (Bld) [#/Vol] 6.3 10*3/uL Normal 3.8-11.[address] [facility] Comment on above: Performed By: #### C BCAD, MG, URIC, LIPD, PHOS, CMP, DBIL #### [facility] [address] [place], [place] [id number] Comprehensive Metabolic Pane baldomero 07-29-2021 Albumin [Mass/Vol] 5.0 g/dL Normal 3.6-5.[address] [facility] Comment on above: Performed By: #### C BCAD, MG, URIC, LIPD, PHOS, CMP, DBIL #### [facility] [address], [place] [id number] Albumin/Globulin [Mass ratio] 2.6 {ratio} High 1.0-2.5 [facility] Comment on above: Performed By: #### C BCAD, MG, URIC, LIPD, PHOS, CMP, DBIL #### [facility] [address] [place], [place] [id number] ALP [Catalytic activity/Vol] 73 U/L Normal 40-129 [facility] Comment on above: Performed By: #### C BCAD, MG, URIC, LIPD, PHOS, CMP, DBIL #### [facility] [address], [place] [id number] ALT [Catalytic activity/Vol] 27 U/L Normal 9-46 [facility] Specialist Comment on above: Result Comment: 03/17 Female reference range changed. Performed By: #### C BCAD, MG, URIC, LIPD, PHOS, CMP, DBIL #### [facility] [address], [place] [id number] Anion gap [Moles/Vol] 18 mmol/L Normal 12-20 [facility] Comment on above: Result Comment: Effe ctive 04/22/2019 reference range changed. Performed By: #### C BCAD, MG, URIC, LIPD, PHOS, CMP, DBIL #### [facility] [address], [place] [id number] AST [Catalytic activity/Vol] 23 U/L Normal 10-40 [facility] Specialist Comment on above: Performed By: #### C BCAD, MG, URIC, LIPD, PHOS, CMP, DBIL #### [facility] [address] [place], [place] [id number] Bilirubin [Mass/Vol] 0.68 mg/dL Normal 0.30-1.20 [facility] Comment on above: Performed By: #### C BCAD, MG, URIC, LIPD, PHOS, CMP, DBIL #### [facility] [address] [place], [place] [id number] BUN/CREA 16 Ratio Normal 6-22 [facility] Comment on above: Performed By: #### C BCAD, MG, URIC, LIPD, PHOS, CMP, DBIL #### [facility] [address], [place] [id number] Calcium [Mass/Vol] 10.0 mg/dL Normal 8.6-10.[address] [facility] Comment on above: Performed By: #### C BCAD, MG, URIC, LIPD, PHOS, CMP, DBIL #### [facility] [address], [place] [id number] Chloride [Moles/Vol] 103 mmol/L Normal 98-107 [facility] Comment on above: Performed By: #### C BCAD, MG, URIC, LIPD, PHOS, CMP, DBIL #### [facility] [address], [place] [id number] CO2 [Moles/Vol] 25 mmol/L Normal 20-31 [facility] Comment on above: Performed By: #### C BCAD, MG, URIC, LIPD, PHOS, CMP, DBIL #### [facility] [address], [place] [id number] Creatinine [Mass/Vol] 1.1 mg/dL Normal 0.7-1.4 [facility] Comment on above: Performed By: #### C BCAD, MG, URIC, LIPD, PHOS, CMP, DBIL #### [facility] [address], [place] [id number] eGFRAA 80 mL/min/1.73m2 Normal >60 [facility] Comment on above: Performed By: #### C BCAD, MG, URIC, LIPD, PHOS, CMP, DBIL #### [facility] [address], [place] [id number] eGFRNAA 66 mL/min/1.73m2 Normal >60 [facility] Specialist Comment on above: Performed By: #### C BCAD, MG, URIC, LIPD, PHOS, CMP, DBIL #### [facility] [address], [place] [id number] Globulin (S) [Mass/Vol] 1.9 g/dL Normal 1.9-3.7 [facility] Teacher Comment on above: Performed By: #### C BCAD, MG, URIC, LIPD, PHOS, CMP, DBIL #### [facility] [address], [place] [id number] Glucose [Mass/Vol] 109 mg/dL High 65-99 [facility] [place] [facility] Comment on above: Result Comment: For FASTING Glucose --- ADA reference ranges: Normal 65-99 mg/dl Prediabetes 100-125 Diabetes >/= 126 Performed By: #### C BCAD, MG, URIC, LIPD, PHOS, CMP, DBIL #### [facility] [address], [place] [id number] Potassium [Moles/Vol] 4.7 mmol/L Normal 3.5-5.5 [facility] Teacher Comment on above: Performed By: #### C BCAD, MG, URIC, LIPD, PHOS, CMP, DBIL #### [facility] [address], [place] [id number] Protein [Mass/Vol] 6.9 g/dL Normal 6.1-8.1 [facility] [place] [facility] Comment on above: Performed By: #### C BCAD, MG, URIC, LIPD, PHOS, CMP, DBIL #### [facility] [address], [place] [id number] Sodium [Moles/Vol] 141 mmol/L Normal 135-146 [place] [facility] [place] [facility] Comment on above: Performed By: #### C BCAD, MG, URIC, LIPD, PHOS, CMP, DBIL #### [facility] [address] [place], [place] [id number] Urea nitrogen [Mass/Vol] 18 mg/dL Normal 7-25 [facility] Teacher Comment on above: Performed By: #### C BCAD, MG, URIC, LIPD, PHOS, CMP, DBIL #### [facility] [address], [place] [id number] Lipid Panelon 07-29-2021 Cholesterol [Mass/Vol] 121 mg/dL Low 125-200 [facility] Teacher Comment on above: Result Comment: Low risk < 200mg/dL Borderline risk 201-239 mg/dl High risk > or equal to 240 Performed By: #### C BCAD, MG, URIC, LIPD, PHOS, CMP, DBIL #### [facility] [address] [place], [place] [id number] Cholesterol in HDL [Mass/Vol] 41 mg/dL Normal >40 [facility] Teacher Comment on above: Result Comment: High Cardiovascular Risk HDL <40 mg/dL Low Cardiovascular Risk HDL > or equal to 60 mg/dl Performed By: #### C BCAD, MG, URIC, LIPD, PHOS, CMP, DBIL #### [facility] [address] [place], [place] [id number] Cholesterol in LDL [Mass/Vol] 56 mg/dL Normal [facility] Teacher Comment on above: Result Comment: LDL ATP III CLASSIFICATION LDL less than 100 mg/dl Optimal LDL 100-129 mg/dl Near or above optimal LDL 130-159 Borderline high LDL 160-189 High LDL greater than 189 mg/dl Very High Performed By: #### C BCAD, MG, URIC, LIPD, PHOS, CMP, DBIL #### [facility] [address] [place], [place] [id number] Cholesterol in VLDL [Mass/Vol] 24 mg/dL Normal [facility] Teacher Comment on above: Performed By: #### C BCAD, MG, URIC, LIPD, PHOS, CMP, DBIL #### [facility] [address] [place], [place] [id number] Cholesterol.total/Ch olesterol in HDL [Mass ratio] 3 {ratio} Normal [facility] Specialist Comment on above: Performed By: #### C BCAD, MG, URIC, LIPD, PHOS, CMP, DBIL #### [facility] [address] [place], [place] [id number] Triglyceride [Mass/Vol] 118 mg/dL Normal 30-150 [facility] Teacher Comment on above: Result Comment: TRIG ATPIII CLASSIFICATIONS TRIG less than 150 mg/dl Normal TRIG 150-199 mg/dl Borderline High TRIG 200-500 mg/dl High TRIG greather than 500 mg/dl Very High Performed By: #### C BCAD, MG, URIC, LIPD, PHOS, CMP, DBIL #### [facility] [address] [place], [place] [id number] Magnesiumon 07-29-2021 Magnesium [Mass/Vol] 2.0 mg/dL Normal 1.5-2.3 [facility] Comment on above: Performed By: #### C BCAD, MG, URIC, LIPD, PHOS, CMP, DBIL #### [facility] [address] [place], [place] [id number] Phosphoruson 07-29-2021 Phosphate [Mass/Vol] 3.3 mg/dL Normal 2.2-4.4 [facility] Comment on above: Performed By: #### C BCAD, MG, URIC, LIPD, PHOS, CMP, DBIL #### [facility] [address], [place] [id number] Q - TACROLIMUSon 07-29-2021 TACROLIMUS, HIGHLY SENSITIVE, LC/MS/MS 6.3 mcg/L Normal [facility] Comment on above: Order Comment: Quest performed at: [facility], [employer] [facility], [address] [place] [address], [address] [place] [address], [id number], [employer]: Shaheed Bazzi MDQuest Collection Date/Time: [id number] Results Received Date/Time: [id number] Reported Date/Time: [id number] Result Comment: No d efinitive therapeutic or toxic ranges have been established. Optimal blood drug levels are influenced by type of transplant, patient response, time post- transplant, co-administration of other drugs, and drug formulation. The following trough range is a suggested guideline: 5.0-20.0 mcg/L. This test was developed and its analytical performance characteristics have been determined by [employer]. It has not been cleared or approved by the FDA. This assay has been validated pursuant to the CLIA regulations and is used for clinical purposes. Performed By: #### C BCAD, MG, URIC, LIPD, PHOS, CMP, DBIL #### [facility] [address] [place], [place] [id number] Uric Acidon 07-29-2021 URIC 6.1 mg/dL Normal 4.0-8.0 [facility] Comment on above: Result Comment: Refe rence range change 03/03/2017. Prior reference range F 2.4-5.7mg/dL. M 3.4-7.0 mg/dL. Performed By: #### C BCAD, MG, URIC, LIPD, PHOS, CMP, DBIL #### [facility] [address] [place], [place] [id number] Bilirubin, Directon 06-29-19 22 DBIL <0.2 Normal [facility] Comment on above: Result Comment: Refe rence range change 03/03/2017. Prior reference range 0.1-0.3 mg/dL. Performed By: #### C BCAD, MG, URIC, LIPD, PHOS, CMP, DBIL #### [facility] [address] [place], [place] [id number] Complete Blood Count with Au to Diffon 06-28-2021 Basophils (Bld) [#/Vol] 0.05 10*3/uL Normal 0.00-0.20 [facility] Comment on above: Performed By: #### C BCAD, MG, URIC, LIPD, PHOS, CMP, DBIL #### [facility] [address] [place], [place] [id number] Basophils/100 WBC (Bld) 0.8 % Normal [facility] Comment on above: Performed By: #### C BCAD, MG, URIC, LIPD, PHOS, CMP, DBIL #### [facility] [address] [place], [place] [id number] Eosinophils (Bld) [#/Vol] 0.10 10*3/uL Normal 0.02-0.50 [facility] Comment on above: Performed By: #### C BCAD, MG, URIC, LIPD, PHOS, CMP, DBIL #### [facility] [address] [place], [place] [id number] Eosinophils/100 WBC (Bld) 1.6 % Normal [facility] Comment on above: Performed By: #### C BCAD, MG, URIC, LIPD, PHOS, CMP, DBIL #### [facility] [address] [place], [place] [id number] Erythrocyte distribution width (RBC) [Ratio] 14.6 % Normal 11.0-15.0 [facility] Comment on above: Performed By: #### C BCAD, MG, URIC, LIPD, PHOS, CMP, DBIL #### [facility] [address] [place], [place] [id number] Hematocrit (Bld) [Volume fraction] 50.7 % High 38.5-50.0 [facility] Specialist Comment on above: Performed By: #### C BCAD, MG, URIC, LIPD, PHOS, CMP, DBIL #### [facility] [address] [place], [place] [id number] Hemoglobin (Bld) [Mass/Vol] 16.2 g/dL Normal 13.0-17.1 [facility] Comment on above: Performed By: #### C BCAD, MG, URIC, LIPD, PHOS, CMP, DBIL #### [facility] [address] [place], [place] [id number] Lymphocytes (Bld) [#/Vol] 1.0 10*3/uL Normal 0.9-3.9 [facility] Comment on above: Performed By: #### C BCAD, MG, URIC, LIPD, PHOS, CMP, DBIL #### [facility] [address] [place], [place] [id number] Lymphocytes/100 WBC (Bld) 16.2 % Normal [facility] Comment on above: Performed By: #### C BCAD, MG, URIC, LIPD, PHOS, CMP, DBIL #### [facility] [address] [place], [place] [id number] MCH (RBC) [Entitic mass] 30.0 pg Normal 27.0-33.0 [facility] Specialist Comment on above: Performed By: #### C BCAD, MG, URIC, LIPD, PHOS, CMP, DBIL #### [facility] [address] [place], [place] [id number] MCHC (RBC) [Mass/Vol] 32.0 g/dL Normal 32.0-36.0 [facility] Specialist Comment on above: Performed By: #### C BCAD, MG, URIC, LIPD, PHOS, CMP, DBIL #### [facility] [address] [place], [place] [id number] MCV (RBC) [Entitic vol] 94 fL Normal 80-100 [facility] Comment on above: Performed By: #### C BCAD, MG, URIC, LIPD, PHOS, CMP, DBIL #### [facility] [address] [place], [place] [id number] Monocytes (Bld) [#/Vol] 0.9 10*3/uL Normal 0.2-0.9 [facility] Specialist Comment on above: Performed By: #### C BCAD, MG, URIC, LIPD, PHOS, CMP, DBIL #### [facility] [address] [place], [place] [id number] Monocytes/100 WBC (Bld) 13.4 % Normal [facility] Specialist Comment on above: Performed By: #### C BCAD, MG, URIC, LIPD, PHOS, CMP, DBIL #### [facility] [address] [place], [place] [id number] Neutrophils (Bld) [#/Vol] 4.3 10*3/uL Normal 1.5-7.8 [facility] Comment on above: Performed By: #### C BCAD, MG, URIC, LIPD, PHOS, CMP, DBIL #### [facility] [address] [place], [place] [id number] Neutrophils/100 WBC (Bld) 67.7 % Normal [facility] Comment on above: Performed By: #### C BCAD, MG, URIC, LIPD, PHOS, CMP, DBIL #### [facility] [address] [place], [place] [id number] Platelet mean volume (Bld) [Entitic vol] 11.00 fL Normal 7.50-12.50 [facility] Comment on above: Performed By: #### C BCAD, MG, URIC, LIPD, PHOS, CMP, DBIL #### [facility] [address] [place], [place] [id number] Platelets (Bld) [#/Vol] 239 10*3/uL Normal 140-400 [facility] Comment on above: Performed By: #### C BCAD, MG, URIC, LIPD, PHOS, CMP, DBIL #### [facility] [address] [place], [place] [id number] RBC (Bld) [#/Vol] 5.40 10*6/uL Normal 4.20-5.80 [facility] Teacher Comment on above: Performed By: #### C BCAD, MG, URIC, LIPD, PHOS, CMP, DBIL #### [facility] [address] [place], [place] [id number] RDW-SD 50.2 fL High 37.0-50.0 [facility] Comment on above: Performed By: #### C BCAD, MG, URIC, LIPD, PHOS, CMP, DBIL #### [facility] [address] [place], [place] [id number] WBC (Bld) [#/Vol] 6.4 10*3/uL Normal 3.8-11.0 [facility] Teacher Comment on above: Performed By: #### C BCAD, MG, URIC, LIPD, PHOS, CMP, DBIL #### [facility] [address] [place], [place] [id number] Comprehensive Metabolic Pane [facility] 06-28-2021 Albumin [Mass/Vol] 4.9 g/dL Normal 3.6-5.1 [facility] [place] [facility] Comment on above: Performed By: #### C BCAD, MG, URIC, LIPD, PHOS, CMP, DBIL #### [facility] [address] [place], [place] [id number] Albumin/Globulin [Mass ratio] 3.3 {ratio} High 1.0-2.5 [facility] Comment on above: Performed By: #### C BCAD, MG, URIC, LIPD, PHOS, CMP, DBIL #### [facility] [address] [place], [place] [id number] ALP [Catalytic activity/Vol] 73 U/L Normal 40-129 [facility] Specialist Comment on above: Performed By: #### C BCAD, MG, URIC, LIPD, PHOS, CMP, DBIL #### [facility] [address], [place] [id number] ALT [Catalytic activity/Vol] 26 U/L Normal 9-46 [facility] Specialist Comment on above: Result Comment: 03/17 Female reference range changed. Performed By: #### C BCAD, MG, URIC, LIPD, PHOS, CMP, DBIL #### [facility] [address], [place] [id number] Anion gap [Moles/Vol] 16 mmol/L Normal 12-20 [facility] Specialist Comment on above: Result Comment: Effe ctive 04/22/2019 reference range changed. Performed By: #### C BCAD, MG, URIC, LIPD, PHOS, CMP, DBIL #### [facility] [address], [place] [id number] AST [Catalytic activity/Vol] 23 U/L Normal 10-40 [facility] [facility] Comment on above: Performed By: #### C BCAD, MG, URIC, LIPD, PHOS, CMP, DBIL #### [facility] [address], [place] [id number] Bilirubin [Mass/Vol] 0.76 mg/dL Normal 0.30-1.20 [facility] Comment on above: Performed By: #### C BCAD, MG, URIC, LIPD, PHOS, CMP, DBIL #### [facility] [address], [place] [id number] BUN/CREA 15 Ratio Normal 6-22 [facility] Comment on above: Performed By: #### C BCAD, MG, URIC, LIPD, PHOS, CMP, DBIL #### [facility] [address], [place] [id number] Calcium [Mass/Vol] 9.8 mg/dL Normal 8.6-10.[address] [facility] Comment on above: Performed By: #### C BCAD, MG, URIC, LIPD, PHOS, CMP, DBIL #### [facility] [address], [place] [id number] Chloride [Moles/Vol] 103 mmol/L Normal 98-107 [facility] Comment on above: Performed By: #### C BCAD, MG, URIC, LIPD, PHOS, CMP, DBIL #### [facility] [address], [place] [id number] CO2 [Moles/Vol] 26 mmol/L Normal 20-31 [facility] Comment on above: Performed By: #### C BCAD, MG, URIC, LIPD, PHOS, CMP, DBIL #### [facility] [address], [place] [id number] Creatinine [Mass/Vol] 1.1 mg/dL Normal 0.7-1.4 [facility] Comment on above: Performed By: #### C BCAD, MG, URIC, LIPD, PHOS, CMP, DBIL #### [facility] [address], [place] [id number] eGFRAA 80 mL/min/1.73m2 Normal >60 [facility] Comment on above: Performed By: #### C BCAD, MG, URIC, LIPD, PHOS, CMP, DBIL #### [facility] [address], [place] [id number] eGFRNAA 66 mL/min/1.73m2 Normal >60 [facility] Comment on above: Performed By: #### C BCAD, MG, URIC, LIPD, PHOS, CMP, DBIL #### [facility] [address], [place] [id number] Globulin (S) [Mass/Vol] 1.5 g/dL Low 1.9-3.7 [facility] Comment on above: Performed By: #### C BCAD, MG, URIC, LIPD, PHOS, CMP, DBIL #### [facility] [address], [place] [id number] Glucose [Mass/Vol] 130 mg/dL High 65-[address] [facility] Comment on above: Result Comment: For FASTING Glucose --- ADA reference ranges: Normal 65-99 mg/dl Prediabetes 100-125 Diabetes >/= 126 Performed By: #### C BCAD, MG, URIC, LIPD, PHOS, CMP, DBIL #### [facility] [address], [place] [id number] Potassium [Moles/Vol] 4.6 mmol/L Normal 3.5-5.5 [facility] Comment on above: Performed By: #### C BCAD, MG, URIC, LIPD, PHOS, CMP, DBIL #### [facility] [address], [place] [id number] Protein [Mass/Vol] 6.4 g/dL Normal 6.1-8.1 [facility] Comment on above: Performed By: #### C BCAD, MG, URIC, LIPD, PHOS, CMP, DBIL #### [facility] [address], [place] [id number] Sodium [Moles/Vol] 140 mmol/L Normal 135-146 [facility] Comment on above: Performed By: #### C BCAD, MG, URIC, LIPD, PHOS, CMP, DBIL #### [facility] [address], [place] [id number] Urea nitrogen [Mass/Vol] 17 mg/dL Normal 7-25 [facility] Comment on above: Performed By: #### C BCAD, MG, URIC, LIPD, PHOS, CMP, DBIL #### [facility] [address], [place] [id number] Lipid Panelon 06-28-2021 Cholesterol [Mass/Vol] 111 mg/dL Low 125-200 [facility] Comment on above: Result Comment: Low risk < 200mg/dL Borderline risk 201-239 mg/dl High risk > or equal to 240 Performed By: #### C BCAD, MG, URIC, LIPD, PHOS, CMP, DBIL #### [facility] [address], [place] [id number] Cholesterol in HDL [Mass/Vol] 38 mg/dL Low >40 [facility] Comment on above: Result Comment: High Cardiovascular Risk HDL <40 mg/dL Low Cardiovascular Risk HDL > or equal to 60 mg/dl Performed By: #### C BCAD, MG, URIC, LIPD, PHOS, CMP, DBIL #### [facility] [address] [facility] [place] [id number] Cholesterol in LDL [Mass/Vol] 47 mg/dL Normal [facility] Comment on above: Result Comment: LDL ATP III CLASSIFICATION LDL less than 100 mg/dl Optimal LDL 100-129 mg/dl Near or above optimal LDL 130-159 Borderline high LDL 160-189 High LDL greater than 189 mg/dl Very High Performed By: #### C BCAD, MG, URIC, LIPD, PHOS, CMP, DBIL #### [facility] [address] [facility] [place] [id number] Cholesterol in VLDL [Mass/Vol] 26 mg/dL Normal [facility] Comment on above: Performed By: #### C BCAD, MG, URIC, LIPD, PHOS, CMP, DBIL #### [facility] [address] [facility] [id number] Cholesterol.total/Ch olesterol in HDL [Mass ratio] 3 {ratio} Normal [facility] Comment on above: Performed By: #### C BCAD, MG, URIC, LIPD, PHOS, CMP, DBIL #### [facility] [address], [place] [id number] Triglyceride [Mass/Vol] 132 mg/dL Normal 30-150 [facility] Comment on above: Result Comment: TRIG ATPIII CLASSIFICATIONS TRIG less than 150 mg/dl Normal TRIG 150-199 mg/dl Borderline High TRIG 200-500 mg/dl High TRIG greather than 500 mg/dl Very High Performed By: #### C BCAD, MG, URIC, LIPD, PHOS, CMP, DBIL #### [facility] [address] [facility] [place] [id number] Magnesiumon 06-28-2021 Magnesium [Mass/Vol] 1.7 mg/dL Normal 1.5-2.3 [facility] Comment on above: Performed By: #### C BCAD, MG, URIC, LIPD, PHOS, CMP, DBIL #### [facility] [address] [place] [id number] Phosphoruson 06-28-2021 Phosphate [Mass/Vol] 3.7 mg/dL Normal 2.2-4.4 [facility] Comment on above: Performed By: #### C BCAD, MG, URIC, LIPD, PHOS, CMP, DBIL #### [facility] [address], [place] [id number] Uric Acidon 06-28-2021 URIC 6.0 mg/dL Normal 4.0-8.0 [facility] Comment on above: Result Comment: Refe renstephanie range change 03/03/2017. Prior reference range F 2.4-5.7mg/dL. M 3.4-7.0 mg/dL. Performed By: #### C BCAD, MG, URIC, LIPD, PHOS, CMP, DBIL #### [facility] [address], [place] [id number] Pulmonary Functionon 022 Pulmonary Function MR #: [id number] [facility] PT. Name: Vishal Duke Date: 06/02/2021 [...] Syed MD Date Trans: 06/06/2021 02:28 P/ [id number] cc: Rosa M Gonzales M.D. [address] [facility] [address] Normal [facility] Bilirubin, Directon 06-01-19 22 DBIL <0.2 Normal [facility] Comment on above: Result Comment: Refe jacki range change 03/03/2017. Prior reference range 0.1-0.3 mg/dL. Performed By: #### C BCAD, MG, URIC, LIPD, PHOS, CMP, DBIL #### [facility] [address], [place] [id number] Complete Blood Count with Au to Diffon 06-01-2021 Basophils (Bld) [#/Vol] 0.06 10*3/uL Normal 0.00-0.20 [facility] Comment on above: Performed By: #### C BCAD, MG, URIC, LIPD, PHOS, CMP, DBIL #### [facility] [address], [place] [id number] Basophils/100 WBC (Bld) 0.9 % Normal [facility] Comment on above: Performed By: #### C BCAD, MG, URIC, LIPD, PHOS, CMP, DBIL #### [facility] [address], [place] [id number] Eosinophils (Bld) [#/Vol] 0.12 10*3/uL Normal 0.02-0.50 [facility] Comment on above: Performed By: #### C BCAD, MG, URIC, LIPD, PHOS, CMP, DBIL #### [facility] [address], [place] [id number] Eosinophils/100 WBC (Bld) 1.8 % Normal [facility] Comment on above: Performed By: #### C BCAD, MG, URIC, LIPD, PHOS, CMP, DBIL #### [facility] [address], [place] [id number] Erythrocyte distribution width (RBC) [Ratio] 14.7 % Normal 11.0-15.0 [facility] Comment on above: Performed By: #### C BCAD, MG, URIC, LIPD, PHOS, CMP, DBIL #### [facility] [address], [place] [id number] Hematocrit (Bld) [Volume fraction] 50.8 % High 38.5-50.0 [facility] Comment on above: Performed By: #### C BCAD, MG, URIC, LIPD, PHOS, CMP, DBIL #### [facility] [address], [place] [id number] Hemoglobin (Bld) [Mass/Vol] 16.5 g/dL Normal 13.0-17.1 [facility] Comment on above: Performed By: #### C BCAD, MG, URIC, LIPD, PHOS, CMP, DBIL #### [facility] [address], [place] [id number] Lymphocytes (Bld) [#/Vol] 1.1 10*3/uL Normal 0.9-3.9 [facility] Comment on above: Performed By: #### C BCAD, MG, URIC, LIPD, PHOS, CMP, DBIL #### [facility] [address], [place] [id number] Lymphocytes/100 WBC (Bld) 16.1 % Normal [facility] Comment on above: Performed By: #### C BCAD, MG, URIC, LIPD, PHOS, CMP, DBIL #### [facility] [address], [place] [id number] MCH (RBC) [Entitic mass] 29.8 pg Normal 27.0-33.0 [facility] Comment on above: Performed By: #### C BCAD, MG, URIC, LIPD, PHOS, CMP, DBIL #### [facility] [address], [place] [id number] MCHC (RBC) [Mass/Vol] 32.5 g/dL Normal 32.0-36.0 [facility] Comment on above: Performed By: #### C BCAD, MG, URIC, LIPD, PHOS, CMP, DBIL #### [facility] [address], [place] [id number] MCV (RBC) [Entitic vol] 92 fL Normal 80-100 [facility] Comment on above: Performed By: #### C BCAD, MG, URIC, LIPD, PHOS, CMP, DBIL #### [facility] [address] [facility] [place] [id number] Monocytes (Bld) [#/Vol] 0.8 10*3/uL Normal 0.2-0.9 [facility] Comment on above: Performed By: #### C BCAD, MG, URIC, LIPD, PHOS, CMP, DBIL #### [facility] [address] [facility] [id number] Monocytes/100 WBC (Bld) 11.4 % Normal [facility] Comment on above: Performed By: #### C BCAD, MG, URIC, LIPD, PHOS, CMP, DBIL #### [facility] [address], [place] [id number] Neutrophils (Bld) [#/Vol] 4.6 10*3/uL Normal 1.5-7.8 [facility] Comment on above: Performed By: #### C BCAD, MG, URIC, LIPD, PHOS, CMP, DBIL #### [facility] [address] [facility] [id number] Neutrophils/100 WBC (Bld) 69.2 % Normal [facility] Comment on above: Performed By: #### C BCAD, MG, URIC, LIPD, PHOS, CMP, DBIL #### [facility] [address], [place] [id number] Platelet mean volume (Bld) [Entitic vol] 10.60 fL Normal 7.50-12.50 [facility] Comment on above: Performed By: #### C BCAD, MG, URIC, LIPD, PHOS, CMP, DBIL #### [facility] [address] [facility] [place] [id number] Platelets (Bld) [#/Vol] 285 10*3/uL Normal 140-400 [facility] Comment on above: Performed By: #### C BCAD, MG, URIC, LIPD, PHOS, CMP, DBIL #### [facility] [address] [facility] [place] [id number] RBC (Bld) [#/Vol] 5.53 10*6/uL Normal 4.20-5.80 [facility] Specialist Comment on above: Performed By: #### C BCAD, MG, URIC, LIPD, PHOS, CMP, DBIL #### [facility] [address], [place] [id number] RDW-SD 49.8 fL Normal 37.0-50.0 [facility] Comment on above: Performed By: #### C BCAD, MG, URIC, LIPD, PHOS, CMP, DBIL #### [facility] [address], [place] [id number] WBC (Bld) [#/Vol] 6.6 10*3/uL Normal 3.8-11.0 [facility] Comment on above: Performed By: #### C BCAD, MG, URIC, LIPD, PHOS, CMP, DBIL #### [facility] [address], [place] [id number] Comprehensive Metabolic Pane [facility] 06-01-2021 Albumin [Mass/Vol] 5.0 g/dL Normal 3.6-5.1 [facility] Comment on above: Performed By: #### C BCAD, MG, URIC, LIPD, PHOS, CMP, DBIL #### [facility] [address], [place] [id number] Albumin/Globulin [Mass ratio] 2.6 {ratio} High 1.0-2.5 [facility] Comment on above: Performed By: #### C BCAD, MG, URIC, LIPD, PHOS, CMP, DBIL #### [facility] [address], [place] [id number] ALP [Catalytic activity/Vol] 93 U/L Normal 40-129 [facility] Comment on above: Performed By: #### C BCAD, MG, URIC, LIPD, PHOS, CMP, DBIL #### [facility] [address], [place] [id number] ALT [Catalytic activity/Vol] 30 U/L Normal 9-46 [facility] Comment on above: Result Comment: 03/17 Female reference range changed. Performed By: #### C BCAD, MG, URIC, LIPD, PHOS, CMP, DBIL #### [facility] [address], [place] [id number] Anion gap [Moles/Vol] 21 mmol/L High 12-20 [facility] Comment on above: Result Comment: Monse ctive 04/22/2019 reference range changed. Performed By: #### C BCAD, MG, URIC, LIPD, PHOS, CMP, DBIL #### [facility] [address], [place] [id number] AST [Catalytic activity/Vol] 26 U/L Normal 10-40 [facility] Comment on above: Performed By: #### C BCAD, MG, URIC, LIPD, PHOS, CMP, DBIL #### [facility] [address], [place] [id number] Bilirubin [Mass/Vol] 0.72 mg/dL Normal 0.30-1.20 [facility] Comment on above: Performed By: #### C BCAD, MG, URIC, LIPD, PHOS, CMP, DBIL #### [facility] [address], [place] [id number] BUN/CREA 15 Ratio Normal 6-22 [facility] Comment on above: Performed By: #### C BCAD, MG, URIC, LIPD, PHOS, CMP, DBIL #### [facility] [address], [place] [id number] Calcium [Mass/Vol] 10.4 mg/dL High 8.6-10.[address] [facility] Comment on above: Performed By: #### C BCAD, MG, URIC, LIPD, PHOS, CMP, DBIL #### [facility] [address], [place] [id number] Chloride [Moles/Vol] 104 mmol/L Normal 98-107 [facility] Comment on above: Performed By: #### C BCAD, MG, URIC, LIPD, PHOS, CMP, DBIL #### [facility] [address] [facility] [place] [id number] CO2 [Moles/Vol] 24 mmol/L Normal 20-31 [facility] Comment on above: Performed By: #### C BCAD, MG, URIC, LIPD, PHOS, CMP, DBIL #### [facility] [address], [place] [id number] Creatinine [Mass/Vol] 1.2 mg/dL Normal 0.7-1.4 [facility] Comment on above: Performed By: #### C BCAD, MG, URIC, LIPD, PHOS, CMP, DBIL #### [facility] [address], [place] [id number] eGFRAA 79 mL/min/1.73m2 Normal >60 [facility] Comment on above: Performed By: #### C BCAD, MG, URIC, LIPD, PHOS, CMP, DBIL #### [facility] [address], [place] [id number] eGFRNAA 65 mL/min/1.73m2 Normal >60 [facility] Comment on above: Performed By: #### C BCAD, MG, URIC, LIPD, PHOS, CMP, DBIL #### [facility] [address], [place] [id number] Globulin (S) [Mass/Vol] 1.9 g/dL Normal 1.9-3.7 [facility] Comment on above: Performed By: #### C BCAD, MG, URIC, LIPD, PHOS, CMP, DBIL #### [facility] [address], [place] [id number] Glucose [Mass/Vol] 108 mg/dL High 65-99 [facility] Specialist Comment on above: Result Comment: For FASTING Glucose --- ADA reference ranges: Normal 65-99 mg/dl Prediabetes 100-125 Diabetes >/= 126 Performed By: #### C BCAD, MG, URIC, LIPD, PHOS, CMP, DBIL #### [facility] [address], [place] [id number] Potassium [Moles/Vol] 5.0 mmol/L Normal 3.5-5.5 [facility] Comment on above: Performed By: #### C BCAD, MG, URIC, LIPD, PHOS, CMP, DBIL #### [facility] [address], [place] [id number] Protein [Mass/Vol] 6.9 g/dL Normal 6.1-8.1 [facility] Specialist Comment on above: Performed By: #### C BCAD, MG, URIC, LIPD, PHOS, CMP, DBIL #### [facility] [address], [place] [id number] Sodium [Moles/Vol] 143 mmol/L Normal 135-146 [facility] Comment on above: Performed By: #### C BCAD, MG, URIC, LIPD, PHOS, CMP, DBIL #### [facility] [address], [place] [id number] Urea nitrogen [Mass/Vol] 17 mg/dL Normal 7-25 [facility] Comment on above: Performed By: #### C BCAD, MG, URIC, LIPD, PHOS, CMP, DBIL #### [facility] [address], [place] [id number] Hemoglobin A1Con 06-01-2021 EAG 139.85 Normal [facility] Comment on above: Performed By: #### A 1C #### [facility] [address], [place] [id number] HbA1c (Bld) [Mass fraction] 6.5 % High 4.0-6.0 [facility] Comment on above: Performed By: #### A 1C #### [facility] [address], [place] [id number] Lipid Panelon 06-01-2021 Cholesterol [Mass/Vol] 129 mg/dL Normal 125-200 [facility] Comment on above: Result Comment: Low risk < 200mg/dL Borderline risk 201-239 mg/dl High risk > or equal to 240 Performed By: #### C BCAD, MG, URIC, LIPD, PHOS, CMP, DBIL #### [facility] [address], [place] [id number] Cholesterol in HDL [Mass/Vol] 44 mg/dL Normal >40 [facility] Comment on above: Result Comment: High Cardiovascular Risk HDL <40 mg/dL Low Cardiovascular Risk HDL > or equal to 60 mg/dl Performed By: #### C BCAD, MG, URIC, LIPD, PHOS, CMP, DBIL #### [facility] [address] [place], [place] [id number] Cholesterol in LDL [Mass/Vol] 61 mg/dL Normal [facility] Comment on above: Result Comment: LDL ATP III CLASSIFICATION LDL less than 100 mg/dl Optimal LDL 100-129 mg/dl Near or above optimal LDL 130-159 Borderline high LDL 160-189 High LDL greater than 189 mg/dl Very High Performed By: #### C BCAD, MG, URIC, LIPD, PHOS, CMP, DBIL #### [facility] [address] [place], [place] [id number] Cholesterol in VLDL [Mass/Vol] 24 mg/dL Normal [facility] Comment on above: Performed By: #### C BCAD, MG, URIC, LIPD, PHOS, CMP, DBIL #### [facility] [address] [place], [place] [id number] Cholesterol.total/Ch olesterol in HDL [Mass ratio] 3 {ratio} Normal [facility] Comment on above: Performed By: #### C BCAD, MG, URIC, LIPD, PHOS, CMP, DBIL #### [facility] [address] [facility] [place] [id number] Triglyceride [Mass/Vol] 119 mg/dL Normal 30-150 [facility] Comment on above: Result Comment: TRIG ATPIII CLASSIFICATIONS TRIG less than 150 mg/dl Normal TRIG 150-199 mg/dl Borderline High TRIG 200-500 mg/dl High TRIG greather than 500 mg/dl Very High Performed By: #### C BCAD, MG, URIC, LIPD, PHOS, CMP, DBIL #### [facility] [address] [facility] [place] [id number] Magnesiumon 06-01-2021 Magnesium [Mass/Vol] 1.8 mg/dL Normal 1.5-2.3 [facility] Comment on above: Performed By: #### C BCAD, MG, URIC, LIPD, PHOS, CMP, DBIL #### [facility] [address] [place], [place] [id number] Phosphoruson 06-01-2021 Phosphate [Mass/Vol] 4.3 mg/dL Normal 2.2-4.4 [facility] Comment on above: Performed By: #### C BCAD, MG, URIC, LIPD, PHOS, CMP, DBIL #### [facility] [address], [place] [id number] Uric Acidon 06-01-2021 URIC 6.1 mg/dL Normal 4.0-8.0 [facility] Comment on above: Result Comment: Refe rence range change 03/03/2017. Prior reference range F 2.4-5.7mg/dL. M 3.4-7.0 mg/dL. Performed By: #### C BCAD, MG, URIC, LIPD, PHOS, CMP, DBIL #### [facility] [address], [place] [id number] Bilirubin, Directon 04-30-19 22 DBIL <0.2 Normal [facility] Comment on above: Result Comment: Refe rence range change 03/03/2017. Prior reference range 0.1-0.3 mg/dL. Performed By: #### C BCAD, MG, URIC, LIPD, PHOS, CMP, DBIL #### [facility] [address], [place] [id number] Complete Blood Count with Au to Diffon 04-30-2021 Basophils (Bld) [#/Vol] 0.07 10*3/uL Normal 0.00-0.20 [facility] Comment on above: Performed By: #### C BCAD, MG, URIC, LIPD, PHOS, CMP, DBIL #### [facility] [address], [place] [id number] Basophils/100 WBC (Bld) 1.1 % Normal [facility] Comment on above: Performed By: #### C BCAD, MG, URIC, LIPD, PHOS, CMP, DBIL #### [facility] [address], [place] [id number] Eosinophils (Bld) [#/Vol] 0.12 10*3/uL Normal 0.02-0.50 [facility] Comment on above: Performed By: #### C BCAD, MG, URIC, LIPD, PHOS, CMP, DBIL #### [facility] [address], [place] [id number] Eosinophils/100 WBC (Bld) 1.8 % Normal [facility] Comment on above: Performed By: #### C BCAD, MG, URIC, LIPD, PHOS, CMP, DBIL #### [facility] [address], [place] [id number] Erythrocyte distribution width (RBC) [Ratio] 14.7 % Normal 11.0-15.0 [facility] Comment on above: Performed By: #### C BCAD, MG, URIC, LIPD, PHOS, CMP, DBIL #### [facility] [address], [place] [id number] Hematocrit (Bld) [Volume fraction] 50.5 % High 38.5-50.0 [facility] Comment on above: Performed By: #### C BCAD, MG, URIC, LIPD, PHOS, CMP, DBIL #### [facility] [address], [place] [id number] Hemoglobin (Bld) [Mass/Vol] 16.4 g/dL Normal 13.0-17.1 [facility] Comment on above: Performed By: #### C BCAD, MG, URIC, LIPD, PHOS, CMP, DBIL #### [facility] [address], [place] [id number] Lymphocytes (Bld) [#/Vol] 1.0 10*3/uL Normal 0.9-3.9 [facility] Comment on above: Performed By: #### C BCAD, MG, URIC, LIPD, PHOS, CMP, DBIL #### [facility] [address], [place] [id number] Lymphocytes/100 WBC (Bld) 14.7 % Normal [facility] Comment on above: Performed By: #### C BCAD, MG, URIC, LIPD, PHOS, CMP, DBIL #### [facility] [address], [place] [id number] MCH (RBC) [Entitic mass] 29.4 pg Normal 27.0-33.0 [facility] Comment on above: Performed By: #### C BCAD, MG, URIC, LIPD, PHOS, CMP, DBIL #### [facility] [address], [place] [id number] MCHC (RBC) [Mass/Vol] 32.5 g/dL Normal 32.0-36.0 [facility] Comment on above: Performed By: #### C BCAD, MG, URIC, LIPD, PHOS, CMP, DBIL #### [facility] [address], [place] [id number] MCV (RBC) [Entitic vol] 91 fL Normal 80-100 [facility] Specialist Comment on above: Performed By: #### C BCAD, MG, URIC, LIPD, PHOS, CMP, DBIL #### [facility] [address], [place] [id number] Monocytes (Bld) [#/Vol] 0.7 10*3/uL Normal 0.2-0.9 [facility] Comment on above: Performed By: #### C BCAD, MG, URIC, LIPD, PHOS, CMP, DBIL #### [facility] [address], [place] [id number] Monocytes/100 WBC (Bld) 10.4 % Normal [facility] Comment on above: Performed By: #### C BCAD, MG, URIC, LIPD, PHOS, CMP, DBIL #### [facility] [address], [place] [id number] Neutrophils (Bld) [#/Vol] 4.7 10*3/uL Normal 1.5-7.8 [facility] Comment on above: Performed By: #### C BCAD, MG, URIC, LIPD, PHOS, CMP, DBIL #### [facility] [address], [place] [id number] Neutrophils/100 WBC (Bld) 71.4 % Normal [facility] Comment on above: Performed By: #### C BCAD, MG, URIC, LIPD, PHOS, CMP, DBIL #### [facility] [address], [place] [id number] Platelet mean volume (Bld) [Entitic vol] 10.70 fL Normal 7.50-12.50 [facility] Comment on above: Performed By: #### C BCAD, MG, URIC, LIPD, PHOS, CMP, DBIL #### [facility] [address], [place] [id number] Platelets (Bld) [#/Vol] 261 10*3/uL Normal 140-400 [facility] Comment on above: Performed By: #### C BCAD, MG, URIC, LIPD, PHOS, CMP, DBIL #### [facility] [address], [place] [id number] RBC (Bld) [#/Vol] 5.57 10*6/uL Normal 4.20-5.80 [facility] Teacher Comment on above: Performed By: #### C BCAD, MG, URIC, LIPD, PHOS, CMP, DBIL #### [facility] [address], [place] [id number] RDW-SD 49.2 fL Normal 37.0-50.0 [facility] Comment on above: Performed By: #### C BCAD, MG, URIC, LIPD, PHOS, CMP, DBIL #### [facility] [address], [place] [id number] WBC (Bld) [#/Vol] 6.6 10*3/uL Normal 3.8-11.0 [facility] [place] [facility] Comment on above: Performed By: #### C BCAD, MG, URIC, LIPD, PHOS, CMP, DBIL #### [facility] [address], [place] [id number] Comprehensive Metabolic Pane [facility] 04-30-2021 Albumin [Mass/Vol] 4.9 g/dL Normal 3.6-5.1 [place] godwin [place] [employer] Comment on above: Performed By: #### C BCAD, MG, URIC, LIPD, PHOS, CMP, DBIL #### [facility] [address], [place] [id number] Albumin/Globulin [Mass ratio] 2.6 {ratio} High 1.0-2.5 [facility] [employer] Comment on above: Performed By: #### C BCAD, MG, URIC, LIPD, PHOS, CMP, DBIL #### [facility] [address], [place] [id number] ALP [Catalytic activity/Vol] 89 U/L Normal 40-129 [facility] Comment on above: Performed By: #### C BCAD, MG, URIC, LIPD, PHOS, CMP, DBIL #### [facility] [address] [place], [place] [id number] ALT [Catalytic activity/Vol] 30 U/L Normal 9-46 [facility] Comment on above: Result Comment: 03/17 Female reference range changed. Performed By: #### C BCAD, MG, URIC, LIPD, PHOS, CMP, DBIL #### [facility] [address], [place] [id number] Anion gap [Moles/Vol] 20 mmol/L Normal 12-20 [facility] Comment on above: Result Comment: Effe ctive 04/22/2019 reference range changed. Performed By: #### C BCAD, MG, URIC, LIPD, PHOS, CMP, DBIL #### [facility] [address], [place] [id number] AST [Catalytic activity/Vol] 23 U/L Normal 10-40 [facility] Comment on above: Performed By: #### C BCAD, MG, URIC, LIPD, PHOS, CMP, DBIL #### [facility] [address], [place] [id number] Bilirubin [Mass/Vol] 0.52 mg/dL Normal 0.30-1.20 [facility] Comment on above: Performed By: #### C BCAD, MG, URIC, LIPD, PHOS, CMP, DBIL #### [facility] [address], [place] [id number] BUN/CREA 18 Ratio Normal 6-22 [facility] Comment on above: Performed By: #### C BCAD, MG, URIC, LIPD, PHOS, CMP, DBIL #### [facility] [address], [place] [id number] Calcium [Mass/Vol] 10.1 mg/dL Normal 8.6-10.2 [place] [facility] Comment on above: Performed By: #### C BCAD, MG, URIC, LIPD, PHOS, CMP, DBIL #### [facility] [address], [place] [id number] Chloride [Moles/Vol] 102 mmol/L Normal 98-107 [facility] on above: Performed By: #### C BCAD, MG, URIC, LIPD, PHOS, CMP, DBIL #### [facility] [address], [place] [id number] CO2 [Moles/Vol] 23 mmol/L Normal 20-31 [facility] Comment on above: Performed By: #### C BCAD, MG, URIC, LIPD, PHOS, CMP, DBIL #### [facility] [address], [place] [id number] Creatinine [Mass/Vol] 1.3 mg/dL Normal 0.7-1.4 [facility] Comment on above: Performed By: #### C BCAD, MG, URIC, LIPD, PHOS, CMP, DBIL #### [facility] [address], [place] [id number] eGFRAA 71 mL/min/1.73m2 Normal >60 [facility] Comment on above: Performed By: #### C BCAD, MG, URIC, LIPD, PHOS, CMP, DBIL #### [facility] [address], [place] [id number] eGFRNAA 59 mL/min/1.73m2 Low >60 [facility] Comment on above: Performed By: #### C BCAD, MG, URIC, LIPD, PHOS, CMP, DBIL #### [facility] [address], [place] [id number] Globulin (S) [Mass/Vol] 1.9 g/dL Normal 1.9-3.7 [facility] Comment on above: Performed By: #### C BCAD, MG, URIC, LIPD, PHOS, CMP, DBIL #### [facility] [address], [place] [id number] Glucose [Mass/Vol] 128 mg/dL High 65-99 [place] [facility] Comment on above: Result Comment: For FASTING Glucose --- ADA reference ranges: Normal 65-99 mg/dl Prediabetes 100-125 Diabetes >/= 126 Performed By: #### C BCAD, MG, URIC, LIPD, PHOS, CMP, DBIL #### [facility] [address], [place] [id number] Potassium [Moles/Vol] 4.4 mmol/L Normal 3.5-5.5 [facility] Comment on above: Performed By: #### C BCAD, MG, URIC, LIPD, PHOS, CMP, DBIL #### [facility] [address], [place] [id number] Protein [Mass/Vol] 6.8 g/dL Normal 6.1-8.1 [place] [facility] Comment on above: Performed By: #### C BCAD, MG, URIC, LIPD, PHOS, CMP, DBIL #### [facility] [address], [place] [id number] Sodium [Moles/Vol] 140 mmol/L Normal 135-146 [place] [facility] Comment on above: Performed By: #### C BCAD, MG, URIC, LIPD, PHOS, CMP, DBIL #### [facility] [address], [place] [id number] Urea nitrogen [Mass/Vol] 23 mg/dL Normal 7-25 [facility] Comment on above: Performed By: #### C BCAD, MG, URIC, LIPD, PHOS, CMP, DBIL #### [facility] [address], [place] [id number] Lipid Panelon 04-30-2021 Cholesterol [Mass/Vol] 123 mg/dL Low 125-200 [facility] Comment on above: Result Comment: Low risk < 200mg/dL Borderline risk 201-239 mg/dl High risk > or equal to 240 Performed By: #### C BCAD, MG, URIC, LIPD, PHOS, CMP, DBIL #### [facility] [address], [place] [id number] Cholesterol in HDL [Mass/Vol] 41 mg/dL Normal >40 [facility] Comment on above: Result Comment: High Cardiovascular Risk HDL <40 mg/dL Low Cardiovascular Risk HDL > or equal to 60 mg/dl Performed By: #### C BCAD, MG, URIC, LIPD, PHOS, CMP, DBIL #### [facility] [address], [place] [id number] Cholesterol in LDL [Mass/Vol] 51 mg/dL Normal [facility] Comment on above: Result Comment: LDL ATP III CLASSIFICATION LDL less than 100 mg/dl Optimal LDL 100-129 mg/dl Near or above optimal LDL 130-159 Borderline high LDL 160-189 High LDL greater than 189 mg/dl Very High Performed By: #### C BCAD, MG, URIC, LIPD, PHOS, CMP, DBIL #### [facility] [address], [place] [id number] Cholesterol in VLDL [Mass/Vol] 31 mg/dL Normal [facility] Comment on above: Performed By: #### C BCAD, MG, URIC, LIPD, PHOS, CMP, DBIL #### [facility] [address], [place] [id number] Cholesterol.total/Ch olesterol in HDL [Mass ratio] 3 {ratio} Normal [facility] Specialist Comment on above: Performed By: #### C BCAD, MG, URIC, LIPD, PHOS, CMP, DBIL #### [facility] [address], [place] [id number] Triglyceride [Mass/Vol] 156 mg/dL High 30-150 [facility] Comment on above: Result Comment: TRIG ATPIII CLASSIFICATIONS TRIG less than 150 mg/dl Normal TRIG 150-199 mg/dl Borderline High TRIG 200-500 mg/dl High TRIG greather than 500 mg/dl Very High Performed By: #### C BCAD, MG, URIC, LIPD, PHOS, CMP, DBIL #### [facility] [address], [place] [id number] Magnesiumon 04-30-2021 Magnesium [Mass/Vol] 2.0 mg/dL Normal 1.5-2.3 Linda lopez [facility] Comment on above: Performed By: #### C BCAD, MG, URIC, LIPD, PHOS, CMP, DBIL #### [facility] [address], [place] [id number] Phosphoruson 04-30-2021 Phosphate [Mass/Vol] 4.2 mg/dL Normal 2.2-4.4 [facility] Comment on above: Performed By: #### C BCAD, MG, URIC, LIPD, PHOS, CMP, DBIL #### [facility] [address], [place] [id number] Uric Acidon 04-30-2021 URIC 5.3 mg/dL Normal 4.0-8.0 [facility] Specialist Comment on above: Result Comment: Refe rence range change 03/03/2017. Prior reference range F 2.4-5.7mg/dL. M 3.4-7.0 mg/dL. Performed By: #### C BCAD, MG, URIC, LIPD, PHOS, CMP, DBIL #### [facility] [address], [place] [id number] Office Visit (Cardiology)on 04-23-2021 Follow-up visit Diagnoses/Problems Assessed Cardiac arrest with ventricular fibrillation (427.5,427.41) (I46.9,I49.01) Coronary artery disease 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out angina pectoris (414.01) (I25.10) [...] appropriate Following discharge he saw his regular [place] by his drain technician to agreed with and endorsed the care we rendered. The device was interrogated it in their office and it appears to be functioning appropriately. Because of all the above he is pleased with his care. He'll be following up henceforth with the [place] drain technician and we advised him were always happy [...] transplantation History of Pacemaker insertion History of [place] tooth extraction Current Meds Medication NameInstruction Aspirin [...] Vital Signs Recorded: 23Apr2021 05:40PMRecorded: 23Apr2021 03:22PM Evntmznx198, RUE, Lpjmazr666, RUE, Sitting Lllnrihts56, RUE, Tqcmkkv53, RUE, Sitting Heart Rate61, R Brachial Artery Height5 ft 11 in Cwygeu302 lb BMI Regsenpdkq69.57 kg/m2 BSA Calculated2.16 Tobacco Useb) No Fall [...] abdomen non-tender (more content not included)... Normal [employer] Tobacco Screening.on 022 Fall risk assessment c) Not medically indicated [facility] [employer] 250 DO Work Phone: Tobacco use status [facility] b) No [facility] [employer] 250 DO Work Phone: Bilirubin, Directon 03-29-20 21 DBIL <0.2 Normal [facility] Comment on above: Result Comment: Refe jacki range change 03/03/2017. Prior reference range 0.1-0.3 mg/dL. Performed By: #### C BCAD, MG, URIC, LIPD, PHOS, CMP, DBIL #### [facility] [address] [place], [place] [id number] Complete Blood Count with Au to Diffon 12-13-2021 Basophils (Bld) [#/Vol] 0.06 10*3/uL Normal 0.00-0.20 [facility] Comment on above: Performed By: #### C BCAD, MG, URIC, LIPD, PHOS, CMP, DBIL #### [facility] [address], [place] [id number] Basophils/100 WBC (Bld) 0.7 % Normal [facility] Comment on above: Performed By: #### C BCAD, MG, URIC, LIPD, PHOS, CMP, DBIL #### [facility] [address], [place] [id number] Eosinophils (Bld) [#/Vol] 0.13 10*3/uL Normal 0.02-0.50 [facility] Comment on above: Performed By: #### C BCAD, MG, URIC, LIPD, PHOS, CMP, DBIL #### [facility] [address], [place] [id number] Eosinophils/100 WBC (Bld) 1.6 % Normal [facility] Comment on above: Performed By: #### C BCAD, MG, URIC, LIPD, PHOS, CMP, DBIL #### [facility] [address], [place] [id number] Erythrocyte distribution width (RBC) [Ratio] 14.9 % Normal 11.0-15.0 [facility] Comment on above: Performed By: #### C BCAD, MG, URIC, LIPD, PHOS, CMP, DBIL #### [facility] [address], [place] [id number] Hematocrit (Bld) [Volume fraction] 51.2 % High 38.5-50.0 [facility] Comment on above: Performed By: #### C BCAD, MG, URIC, LIPD, PHOS, CMP, DBIL #### [facility] [address], [place] [id number] Hemoglobin (Bld) [Mass/Vol] 16.0 g/dL Normal 13.0-17.1 [facility] Comment on above: Performed By: #### C BCAD, MG, URIC, LIPD, PHOS, CMP, DBIL #### [facility] [address], [place] [id number] Lymphocytes (Bld) [#/Vol] 0.9 10*3/uL Normal 0.9-3.9 [facility] Specialist Comment on above: Performed By: #### C BCAD, MG, URIC, LIPD, PHOS, CMP, DBIL #### [facility] [address], [place] [id number] Lymphocytes/100 WBC (Bld) 10.7 % Normal [facility] Specialist Comment on above: Performed By: #### C BCAD, MG, URIC, LIPD, PHOS, CMP, DBIL #### [facility] [address], [place] [id number] MCH (RBC) [Entitic mass] 28.9 pg Normal 27.0-33.0 [facility] Special[facility] Comment on above: Performed By: #### C BCAD, MG, URIC, LIPD, PHOS, CMP, DBIL #### [facility] [address], [place] [id number] MCHC (RBC) [Mass/Vol] 31.3 g/dL Low 32.0-36.0 [facility] Specialist Comment on above: Performed By: #### C BCAD, MG, URIC, LIPD, PHOS, CMP, DBIL #### [facility] [address], [place] [id number] MCV (RBC) [Entitic vol] 92 fL Normal 80-100 [facility] Comment on above: Performed By: #### C BCAD, MG, URIC, LIPD, PHOS, CMP, DBIL #### [facility] [address], [place] [id number] Monocytes (Bld) [#/Vol] 0.7 10*3/uL Normal 0.2-0.9 [facility] Specialist Comment on above: Performed By: #### C BCAD, MG, URIC, LIPD, PHOS, CMP, DBIL #### [facility] [address], [place] [id number] Monocytes/100 WBC (Bld) 8.1 % Normal [facility] Specialist Comment on above: Performed By: #### C BCAD, MG, URIC, LIPD, PHOS, CMP, DBIL #### [facility] [address], [place] [id number] Neutrophils (Bld) [#/Vol] 6.4 10*3/uL Normal 1.5-7.8 [facility] Specialist Comment on above: Performed By: #### C BCAD, MG, URIC, LIPD, PHOS, CMP, DBIL #### [facility] [address], [place] [id number] Neutrophils/100 WBC (Bld) 78.5 % Normal [facility] Specialist Comment on above: Performed By: #### C BCAD, MG, URIC, LIPD, PHOS, CMP, DBIL #### [facility] [address], [place] [id number] Platelet mean volume (Bld) [Entitic vol] 11.20 fL Normal 7.50-12.50 [facility] Special[facility] Comment on above: Performed By: #### C BCAD, MG, URIC, LIPD, PHOS, CMP, DBIL #### [facility] [address], [place] [id number] Platelets (Bld) [#/Vol] 295 10*3/uL Normal 140-400 [facility] Specialist Comment on above: Performed By: #### C BCAD, MG, URIC, LIPD, PHOS, CMP, DBIL #### [facility] [address], [place] [id number] RBC (Bld) [#/Vol] 5.54 10*6/uL Normal 4.20-5.80 [facility] Specialist Comment on above: Performed By: #### C BCAD, MG, URIC, LIPD, PHOS, CMP, DBIL #### [facility] [address], [place] [id number] RDW-SD 51.0 fL High 37.0-50.0 [facility] Specialist Comment on above: Performed By: #### C BCAD, MG, URIC, LIPD, PHOS, CMP, DBIL #### [facility] [address], [place] [id number] WBC (Bld) [#/Vol] 8.2 10*3/uL Normal 3.8-11.0 [place] [facility] Comment on above: Performed By: #### C BCAD, MG, URIC, LIPD, PHOS, CMP, DBIL #### [facility] [address], [place] [id number] Comprehensive Metabolic Pane [facility] 03-29-2021 Albumin [Mass/Vol] 4.9 g/dL Normal 3.6-5.1 [place] [facility] Comment on above: Performed By: #### C BCAD, MG, URIC, LIPD, PHOS, CMP, DBIL #### [facility] [address], [place] [id number] Albumin/Globulin [Mass ratio] 2.5 {ratio} Normal 1.0-2.5 [facility] Comment on above: Performed By: #### C BCAD, MG, URIC, LIPD, PHOS, CMP, DBIL #### [facility] [address], [place] [id number] ALP [Catalytic activity/Vol] 86 U/L Normal 40-129 [facility] Comment on above: Performed By: #### C BCAD, MG, URIC, LIPD, PHOS, CMP, DBIL #### [facility] [address], [place] [id number] ALT [Catalytic activity/Vol] 33 U/L Normal 9-46 [facility] Comment on above: Result Comment: 03/17 Female reference range changed. Performed By: #### C BCAD, MG, URIC, LIPD, PHOS, CMP, DBIL #### [facility] [address], [place] [id number] Anion gap [Moles/Vol] 18 mmol/L Normal 12-20 [facility] Comment on above: Result Comment: Effe ctive 04/22/2019 reference range changed. Performed By: #### C BCAD, MG, URIC, LIPD, PHOS, CMP, DBIL #### [facility] [address], [place] [id number] AST [Catalytic activity/Vol] 27 U/L Normal 10-40 [place] [facility] Comment on above: Performed By: #### C BCAD, MG, URIC, LIPD, PHOS, CMP, DBIL #### [facility] [address], [place] [id number] Bilirubin [Mass/Vol] 0.38 mg/dL Normal 0.30-1.20 [facility] Comment on above: Performed By: #### C BCAD, MG, URIC, LIPD, PHOS, CMP, DBIL #### [facility] [address], [place] [id number] BUN/CREA 12 Ratio Normal 6-22 [facility] Comment on above: Performed By: #### C BCAD, MG, URIC, LIPD, PHOS, CMP, DBIL #### [facility] [address], [place] [id number] Calcium [Mass/Vol] 10.3 mg/dL High 8.6-10.[address] [facility] Comment on above: Performed By: #### C BCAD, MG, URIC, LIPD, PHOS, CMP, DBIL #### [facility] [address], [place] [id number] Chloride [Moles/Vol] 105 mmol/L Normal 98-107 [facility] Comment on above: Performed By: #### C BCAD, MG, URIC, LIPD, PHOS, CMP, DBIL #### [facility] [address], [place] [id number] CO2 [Moles/Vol] 23 mmol/L Normal 20-31 [facility] Specialist Comment on above: Performed By: #### C BCAD, MG, URIC, LIPD, PHOS, CMP, DBIL #### [facility] [address], [place] [id number] Creatinine [Mass/Vol] 1.2 mg/dL Normal 0.7-1.4 [facility] Comment on above: Performed By: #### C BCAD, MG, URIC, LIPD, PHOS, CMP, DBIL #### [facility] [address], [place] [id number] eGFRAA 79 mL/min/1.73m2 Normal >60 [place] [facility] Comment on above: Performed By: #### C BCAD, MG, URIC, LIPD, PHOS, CMP, DBIL #### [facility] [address], [place] [id number] eGFRNAA 65 mL/min/1.73m2 Normal >60 [facility] Comment on above: Performed By: #### C BCAD, MG, URIC, LIPD, PHOS, CMP, DBIL #### [facility] [address], [place] [id number] Globulin (S) [Mass/Vol] 2.0 g/dL Normal 1.9-3.7 [facility] Comment on above: Performed By: #### C BCAD, MG, URIC, LIPD, PHOS, CMP, DBIL #### [facility] [address], [place] [id number] Glucose [Mass/Vol] 125 mg/dL High 65-99 [place] [facility] Comment on above: Result Comment: For FASTING Glucose --- ADA reference ranges: Normal 65-99 mg/dl Prediabetes 100-125 Diabetes >/= 126 Performed By: #### C BCAD, MG, URIC, LIPD, PHOS, CMP, DBIL #### [facility] [address], [place] [id number] Potassium [Moles/Vol] 4.7 mmol/L Normal 3.5-5.5 [facility] Comment on above: Performed By: #### C BCAD, MG, URIC, LIPD, PHOS, CMP, DBIL #### [facility] [address], [place] [id number] Protein [Mass/Vol] 6.9 g/dL Normal 6.1-8.1 [place] [facility] Comment on above: Performed By: #### C BCAD, MG, URIC, LIPD, PHOS, CMP, DBIL #### [facility] [address], [place] [id number] Sodium [Moles/Vol] 141 mmol/L Normal 135-146 [place] [facility] Comment on above: Performed By: #### C BCAD, MG, URIC, LIPD, PHOS, CMP, DBIL #### [facility] [address] [place] [id number] Urea nitrogen [Mass/Vol] 14 mg/dL Normal 7-25 [facility] Comment on above: Performed By: #### C BCAD, MG, URIC, LIPD, PHOS, CMP, DBIL #### [facility] [address] [place], [place] [id number] Lipid Panelon 03-29-2021 Cholesterol [Mass/Vol] 123 mg/dL Low 125-200 [facility] Comment on above: Result Comment: Low risk < 200mg/dL Borderline risk 201-239 mg/dl High risk > or equal to 240 Performed By: #### C BCAD, MG, URIC, LIPD, PHOS, CMP, DBIL #### [facility] [address] [facility] [place] [id number] Cholesterol in HDL [Mass/Vol] 42 mg/dL Normal >40 [facility] Comment on above: Result Comment: High Cardiovascular Risk HDL <40 mg/dL Low Cardiovascular Risk HDL > or equal to 60 mg/dl Performed By: #### C BCAD, MG, URIC, LIPD, PHOS, CMP, DBIL #### [facility] [address] [facility] [place] [id number] Cholesterol in LDL [Mass/Vol] 58 mg/dL Normal [facility] Comment on above: Result Comment: LDL ATP III CLASSIFICATION LDL less than 100 mg/dl Optimal LDL 100-129 mg/dl Near or above optimal LDL 130-159 Borderline high LDL 160-189 High LDL greater than 189 mg/dl Very High Performed By: #### C BCAD, MG, URIC, LIPD, PHOS, CMP, DBIL #### [facility] [address] [facility] [place] [id number] Cholesterol in VLDL [Mass/Vol] 23 mg/dL Normal [facility] Comment on above: Performed By: #### C BCAD, MG, URIC, LIPD, PHOS, CMP, DBIL #### [facility] [address] [place] [id number] Cholesterol.total/Ch olesterol in HDL [Mass ratio] 3 {ratio} Normal [facility] Comment on above: Performed By: #### C BCAD, MG, URIC, LIPD, PHOS, CMP, DBIL #### [facility] [address], [place] [id number] Triglyceride [Mass/Vol] 113 mg/dL Normal 30-150 [facility] Specialist Comment on above: Result Comment: TRIG ATPIII CLASSIFICATIONS TRIG less than 150 mg/dl Normal TRIG 150-199 mg/dl Borderline High TRIG 200-500 mg/dl High TRIG greather than 500 mg/dl Very High Performed By: #### C BCAD, MG, URIC, LIPD, PHOS, CMP, DBIL #### [facility] [address], [place] [id number] Magnesiumon 03-29-2021 Magnesium [Mass/Vol] 1.9 mg/dL Normal 1.5-2.3 [facility] Specialist Comment on above: Performed By: #### C BCAD, MG, URIC, LIPD, PHOS, CMP, DBIL #### [facility] [address], [place] [id number] Phosphoruson 03-29-2021 Phosphate [Mass/Vol] 4.1 mg/dL Normal 2.2-4.4 [facility] Comment on above: Performed By: #### C BCAD, MG, URIC, LIPD, PHOS, CMP, DBIL #### [facility] [address], [place] [id number] Uric Acidon 03-29-2021 URIC 7.5 mg/dL Normal 4.0-8.0 [facility] Specialist Comment on above: Result Comment: Refe rence range change 03/03/2017. Prior reference range F 2.4-5.7mg/dL. M 3.4-7.0 mg/dL. Performed By: #### C BCAD, MG, URIC, LIPD, PHOS, CMP, DBIL #### [facility] [address], [place] [id number] [facility] CHEST 2 Son 12-24-2020 [facility] CHEST 2 [facility] Department of Radiology [address] [place] [address] Patient Name: VISHAL DUKE : 1960 Sex: M Age: Race: White Pt. Location: [facility] Patient Status: D Ordered Date: 12/24/2020 3:50:00 PM Completed Date: 12/24/2020 03:48 PM Requesting Provider: ZULY VERDUZCO Attending Provider: Report Copy To: Signs & Symptoms: U07.1 COVID-19 I10 History: [place] Comments: covid Exam: [facility] CHEST 2 VWS [facility] CHEST 2 VWS 12/24/2020 3:48 PM CLINICAL [...] process. Electronically signed: Giovana Garrido. Transcribed by: [id number], User Resident: Electronically Signed by: GIOVANA GARRIDO @ 12/25/2020 12:24 PM Normal [facility] Comment on above: Order Comment: No: D o not add to previous draw CV'D BY [facility] AT 1240 Glucose Poct Glucometerson 0 12-12-2020 Commemt1 Glu2: Cleaned Meter Normal [facility] Comment on above: Result Comment: PERF ORMED BY: [place] [id number] PATHOLOGIST [employer]PER[employer] SHYANN OLIVIER M.D. Performed By: #### B MP, HS TROP, CBC, PT, PTT, BNP #### [place] [id number] [facility] Glucose [Mass/Vol] 147 mg/dL Normal [facility] Comment on above: Result Comment: [place] om Glucose Reference Range is dependent on time and content of last meal. Glucose of more than 200 mg/dL in a nonstressed, ambulatory subject supports the diagnosis of Diabetes Mellitus. Performed By: #### B MP, HS TROP, CBC, PT, PTT, BNP #### [address] Glucose [Mass/Vol] 107 mg/dL Normal [facility] Comment on above: Result Comment: [place] om Glucose Reference Range is dependent on time and content of last meal. Glucose of more than 200 mg/dL in a nonstressed, ambulatory subject supports the diagnosis of Diabetes Mellitus. PERFORMED BY: [place] [address] PATHOLOGIST SUPER[employer] SHYANN OLIVIER M.D. Performed By: #### B MP, HS TROP, CBC, PT, PTT, BNP #### [place] [id number] [facility] XR chest 2V*on 12-12-2020 XR chest 2V* [facility] [place] [address] [place] [address] XRay Report Signed Patient: Vishal Duke MR#: [id number] : 1960 Acct:[id number] Age/Sex: 59 / M ADM Date: 12/08/20 Loc: Room: [address] [place] [address] Type: ADM IN Attending Dr: Leonardo Storey [...] Farah Jr., M.D.12/12/2020 9:15 AM Dictation Location: [place] [address] Transcribed By: [facility] 12/12/20914 Dictated By: Faraz Farah Jr, MD 12/12/20908 Signed By: 12/12/[address] [facility] Basic Metabolic Panelon 11-16 Calcium [Mass/Vol] 8.9 mg/dL Normal 8.2-10.2 [facility] Comment on above: Performed By: #### B MP, HS TROP, CBC, PT, PTT, BNP #### [facility] [address] [place] [address] Chloride [Moles/Vol] 105 mmol/L Normal 95-114 [facility] Comment on above: Performed By: #### B MP, HS TROP, CBC, PT, PTT, BNP #### [facility] [address] [place] [address] [place] CO2 [Moles/Vol] 22.1 mmol/L Normal 22.0-30.0 [facility] Comment on above: Performed By: #### B MP, HS TROP, CBC, PT, PTT, BNP #### [facility] [address] [place] [address] [place] Creatinine [Mass/Vol] 1.08 mg/dL Normal 0.64-1.[address] [facility] Comment on above: Performed By: #### B MP, HS TROP, CBC, PT, PTT, BNP #### [facility] [address] [place] [address] Creatinine Clr Calc Pharmacy 78.44 [facility] Comment on above: Result Comment: PERF ORMED BY: [place] [address] PATHOLOGIST SUPER[employer] SHYANN OLIVIER M.D. Performed By: #### B MP, HS TROP, CBC, PT, PTT, BNP #### [address] Estimated GFR ( Nata > 60 [facility] Comment on above: Result Comment: GFR estimated reference range: According to KDOQI guidelines, <60 ml/min/1.73m2 is sufficient to diagnose a patient with chronic kidney disease. Performed By: #### B MP, HS TROP, CBC, PT, PTT, BNP #### [address] Estimated GFR (Non- Am > 60 [facility] Comment on above: Performed By: #### B MP, HS TROP, CBC, PT, PTT, BNP #### [address] Glucose [Mass/Vol] 138 mg/dL High 70-100 [facility] Comment on above: Result Comment: [place] Glucose Reference Range is dependent on time and content of last meal. Glucose of more than 200 mg/dL in a nonstressed, ambulatory subject supports the diagnosis of Diabetes Mellitus. ADA recommended reference range Performed By: #### B MP, HS TROP, CBC, PT, PTT, BNP #### [address] Potassium [Moles/Vol] 4.2 mmol/L Normal 3.5-5.[address] [facility] Comment on above: Performed By: #### B MP, HS TROP, CBC, PT, PTT, BNP #### [address] Sodium [Moles/Vol] 138 mmol/L Normal 136-146 [facility] Comment on above: Performed By: #### B MP, HS TROP, CBC, PT, PTT, BNP #### [address] Urea nitrogen [Mass/Vol] 11 mg/dL Normal 9-[address] [facility] Comment on above: Performed By: #### B MP, HS TROP, CBC, PT, PTT, BNP #### [address] Complete Blood Count Auto Di ffon 12-11-2020 Basophils (Bld) [#/Vol] 0.1 10*3/uL Normal 0.0-0.[address] [facility] Comment on above: Result Comment: PERF ORMED BY: [place] [address] PATHOLOGIST SUPERVIS[employer] SHYANN OLIVIER M.D. Performed By: #### B MP, HS TROP, CBC, PT, PTT, BNP #### [address] Basophils/100 WBC (Bld) 0.7 % Normal . [facility] Comment on above: Performed By: #### B MP, HS TROP, CBC, PT, PTT, BNP #### [address] Eosinophils (Bld) [#/Vol] 0.1 10*3/uL Normal 0.0-0.[address] [facility] Comment on above: Performed By: #### B MP, HS TROP, CBC, PT, PTT, BNP #### [address] Eosinophils/100 WBC (Bld) 1.3 % Normal . [facility] Comment on above: Performed By: #### B MP, HS TROP, CBC, PT, PTT, BNP #### [address] Erythrocyte distribution width (RBC) [Ratio] 15.2 % High 12.0-14.[address] [facility] Comment on above: Performed By: #### B MP, HS TROP, CBC, PT, PTT, BNP #### [address] Hematocrit (Bld) [Volume fraction] 38.0 % Low 38.8-50.[address] [facility] Comment on above: Performed By: #### B MP, HS TROP, CBC, PT, PTT, BNP #### [address] Hemoglobin (Bld) [Mass/Vol] 13.0 g/dL Normal 13.0-17.[address] [facility] Comment on above: Performed By: #### B MP, HS TROP, CBC, PT, PTT, BNP #### [address] Lymphocytes (Bld) [#/Vol] 0.7 10*3/uL Low 1.00-4.[address] [facility] Comment on above: Performed By: #### B MP, HS TROP, CBC, PT, PTT, BNP #### [address] Lymphocytes/100 WBC (Bld) 7.7 % Normal . [facility] Comment on above: Performed By: #### B MP, HS TROP, CBC, PT, PTT, BNP #### [address] MCH (RBC) [Entitic mass] 31.5 pg Normal 27.5-35.[address] [facility] Comment on above: Performed By: #### B MP, HS TROP, CBC, PT, PTT, BNP #### [address] MCV (RBC) [Entitic vol] 91.7 fL Normal 83.5-[address] [facility] Comment on above: Performed By: #### B MP, HS TROP, CBC, PT, PTT, BNP #### [address] Mean Corpuscular HGB Conc 34.3 g/dL Normal 32.5-35.[address] [facility] Comment on above: Performed By: #### B MP, HS TROP, CBC, PT, PTT, BNP #### [address] Monocytes (Bld) [#/Vol] 0.9 10*3/uL High 0.0-0.[address] [facility] Comment on above: Performed By: #### B MP, HS TROP, CBC, PT, PTT, BNP #### [facility] [address] [place] [address] [place] Monocytes/100 WBC (Bld) 9.4 % Normal . [facility] Comment on above: Performed By: #### B MP, HS TROP, CBC, PT, PTT, BNP #### [facility] [address] Neutrophils (Bld) [#/Vol] 7.5 10*3/uL Normal 1.8-7.[address] [facility] Comment on above: Performed By: #### B MP, HS TROP, CBC, PT, PTT, BNP #### [address] Neutrophils/100 WBC (Bld) 80.9 % Normal . [facility] Comment on above: Performed By: #### B MP, HS TROP, CBC, PT, PTT, BNP #### [place] [address] [place] Nucleated RBC/100 WBC (Bld) [Ratio] 0.0 % Normal 0-0.[address] [facility] Comment on above: Performed By: #### B MP, HS TROP, CBC, PT, PTT, BNP #### [address] Platelet mean volume (Bld) [Entitic vol] 7.6 fL Normal 6.6-10.[address] [facility] Comment on above: Performed By: #### B MP, HS TROP, CBC, PT, PTT, BNP #### [facility] [address] [place] [address] [place] Platelets (Bld) [#/Vol] 385 10*3/uL Normal 150-[address] [facility] Comment on above: Performed By: #### B MP, HS TROP, CBC, PT, PTT, BNP #### [place] [address] [place] RBC (Bld) [#/Vol] 4.14 10*6/uL Normal 3.90-5.60 [facility] Comment on above: Performed By: #### B MP, HS TROP, CBC, PT, PTT, BNP #### [facility] [address] WBC (Bld) [#/Vol] 9.3 10*3/uL Normal 4.5-11.0 [facility] Comment on above: Performed By: #### B MP, HS TROP, CBC, PT, PTT, BNP #### [facility] [address] Glucose Poct Glucometerson 0 12-11-2020 Glucose [Mass/Vol] 129 mg/dL Normal [facility] Comment on above: Result Comment: [facility] Glucose Reference Range is dependent on time and content of last meal. Glucose of more than 200 mg/dL in a nonstressed, ambulatory subject supports the diagnosis of Diabetes Mellitus. PERFORMED BY: [place] [address] PATHOLOGIST SUPER[employer] OLIVIER M.D. Performed By: #### B MP, HS TROP, CBC, PT, PTT, BNP #### [address] Partial Thromboplastin Timeo n 12-11-2020 aPTT Coag (Bld) [Time] 32.7 s Normal 25.1-36.[address] [facility] Comment on above: Result Comment: PERF ORMED BY: [place] [address] PATHOLOGIST [employer] OLIVIER M.D. Performed By: #### B MP, HS TROP, CBC, PT, PTT, BNP #### [address] Prothrombin Time INRon 12-11 INR Coag (PPP) [Relative time] 1.2 {INR} Normal [facility] Comment on above: Result Comment: INR [...] PTT, BNP #### [facility] [address] [place] [address] [facility] PT Coag (PPP) [Time] 13.8 s High 9.0-12.9 [facility] Comment on above: Performed By: #### B MP, HS TROP, CBC, PT, PTT, BNP #### [facility] [address] [place] [address] [facility] XR chest 1V portableon 12-11 XR chest 1V portable [facility] [address] [place] [address] [place] [address] XRay Report Signed Patient: Vishal Duke MR#: [id number] : 1960 Acct:[id number] Age/Sex: 59 / M ADM Date: 12/08/20 Loc: Room: [address] [place] [address] Type: ADM IN Attending Dr: Leonardo Storey [...] 12/11/20 1236 Signed By: 12/11/20 [address] [facility] Complete Blood Count Auto Di ffon 12-10-2020 Basophils (Bld) [#/Vol] 0.0 10*3/uL Normal 0.0-0.[address] [facility] Comment on above: Result Comment: PERF ORMED BY: [place] [address] PATHOLOGIST SUPER[employer] OLIVIER M.D. Performed By: #### B MP, HS TROP, CBC, PT, PTT, BNP #### [address] Basophils/100 WBC (Bld) 0.3 % Normal . [facility] Comment on above: Performed By: #### B MP, HS TROP, CBC, PT, PTT, BNP #### [address] Eosinophils (Bld) [#/Vol] 0.1 10*3/uL Normal 0.0-0.[address] [facility] Comment on above: Performed By: #### B MP, HS TROP, CBC, PT, PTT, BNP #### [address] Eosinophils/100 WBC (Bld) 0.5 % Normal . [facility] Comment on above: Performed By: #### B MP, HS TROP, CBC, PT, PTT, BNP #### [address] Erythrocyte distribution width (RBC) [Ratio] 15.1 % High 12.0-14.[address] [facility] Comment on above: Performed By: #### B MP, HS TROP, CBC, PT, PTT, BNP #### [address] Hematocrit (Bld) [Volume fraction] 39.5 % Normal 38.8-50.[address] [facility] Comment on above: Performed By: #### B MP, HS TROP, CBC, PT, PTT, BNP #### [address] Hemoglobin (Bld) [Mass/Vol] 13.1 g/dL Normal 13.0-17.[address] [facility] Comment on above: Performed By: #### B MP, HS TROP, CBC, PT, PTT, BNP #### [address] Lymphocytes (Bld) [#/Vol] 0.5 10*3/uL Low 1.00-4.[address] [facility] Comment on above: Performed By: #### B MP, HS TROP, CBC, PT, PTT, BNP #### [address] Lymphocytes/100 WBC (Bld) 4.0 % Normal . [facility] Comment on above: Performed By: #### B MP, HS TROP, CBC, PT, PTT, BNP #### [address] MCH (RBC) [Entitic mass] 31.2 pg Normal 27.5-35.[address] [facility] Comment on above: Performed By: #### B MP, HS TROP, CBC, PT, PTT, BNP #### [address] MCV (RBC) [Entitic vol] 94.1 fL Normal 83.5-[address] [facility] Comment on above: Performed By: #### B MP, HS TROP, CBC, PT, PTT, BNP #### [address] Mean Corpuscular HGB Conc 33.2 g/dL Normal 32.5-35.[address] [facility] Comment on above: Performed By: #### B MP, HS TROP, CBC, PT, PTT, BNP #### [address] Monocytes (Bld) [#/Vol] 0.8 10*3/uL Normal 0.0-0.[address] [facility] Comment on above: Performed By: #### B MP, HS TROP, CBC, PT, PTT, BNP #### [facility] [address] Monocytes/100 WBC (Bld) 6.6 % Normal . [facility] Comment on above: Performed By: #### B MP, HS TROP, CBC, PT, PTT, BNP #### [address] Neutrophils (Bld) [#/Vol] 10.5 10*3/uL High 1.8-7.[address] [facility] Comment on above: Performed By: #### B MP, HS TROP, CBC, PT, PTT, BNP #### [address] Neutrophils/100 WBC (Bld) 88.6 % Normal . [facility] Comment on above: Performed By: #### B MP, HS TROP, CBC, PT, PTT, BNP #### [address] Nucleated RBC/100 WBC (Bld) [Ratio] 0.1 % Normal 0-0.[address] [facility] Comment on above: Performed By: #### B MP, HS TROP, CBC, PT, PTT, BNP #### [address] Platelet mean volume (Bld) [Entitic vol] 8.1 fL Normal 6.6-10.[address] [facility] Comment on above: Performed By: #### B MP, HS TROP, CBC, PT, PTT, BNP #### [address] Platelets (Bld) [#/Vol] 403 10*3/uL Normal 150-[address] [facility] Comment on above: Performed By: #### B MP, HS TROP, CBC, PT, PTT, BNP #### [address] RBC (Bld) [#/Vol] 4.20 10*6/uL Normal 3.90-5.60 [facility] Comment on above: Performed By: #### B MP, HS TROP, CBC, PT, PTT, BNP #### [facility] [address] [place] [address] WBC (Bld) [#/Vol] 11.9 10*3/uL High 4.5-11.0 [facility] Comment on above: Performed By: #### B MP, HS TROP, CBC, PT, PTT, BNP #### [address] Comprehensive Metabolic Pane baldomero 12-10-2020 Albumin [Mass/Vol] 3.1 g/dL Low 3.2-5.5 [facility] Comment on above: Result Comment: --- 12/10/201240 --- Alb previously reported as: 2.8 L gm/dL Performed By: #### B MP, HS TROP, CBC, PT, PTT, BNP #### [address] Albumin/Globulin [Mass ratio] 0.9 {ratio} Normal [facility] Comment on above: Result Comment: --- 12/10/201240 --- A/G Ratio previously reported as: 0.8 Performed By: #### B MP, HS TROP, CBC, PT, PTT, BNP #### [address] ALP [Catalytic activity/Vol] 98 U/L High 32-[address] [facility] Comment on above: Result Comment: --- 12/10/201241 --- Alk Phos previously reported as: 91 U/L Performed By: #### B MP, HS TROP, CBC, PT, PTT, BNP #### [address] ALT [Catalytic activity/Vol] 123 U/L High 10-[address] [facility] Comment on above: Result Comment: --- 12/10/201241 --- ALT previously reported as: 116 H U/L Performed By: #### B MP, HS TROP, CBC, PT, PTT, BNP #### [address] AST [Catalytic activity/Vol] 91 U/L High 10-[address] [facility] Comment on above: Result Comment: --- 12/10/201241 --- AST previously reported as: 82 H U/L Performed By: #### B MP, HS TROP, CBC, PT, PTT, BNP #### [facility] [address] Bilirubin [Mass/Vol] 0.7 mg/dL Normal 0.3-1.2 [facility] Comment on above: Result Comment: --- 12/10/201240 --- TOTAL BILI previously reported as: 0.9 mg/dL Performed By: #### B MP, HS TROP, CBC, PT, PTT, BNP #### [facility] [address] [place] [address] Calcium [Mass/Vol] 9.0 mg/dL Normal 8.2-10.2 [facility] Comment on above: Result Comment: --- 12/10/201240 --- CA previously reported as: 8.2 mg/dL Performed By: #### B MP, HS TROP, CBC, PT, PTT, BNP #### [facility] [address] [place] [address] Chloride [Moles/Vol] 99 mmol/L Normal 95-114 [facility] Comment on above: Result Comment: --- 12/10/201240 --- CL previously reported as: 97 mmol/L Performed By: #### B MP, HS TROP, CBC, PT, PTT, BNP #### [facility] [address] [place] [address] CO2 [Moles/Vol] 20.4 mmol/L Low 22.0-30.0 [facility] Comment on above: Result Comment: --- 12/10/201240 --- CO2 previously reported as: 21.7 L mmol/L Performed By: #### B MP, HS TROP, CBC, PT, PTT, BNP #### [address] Creatinine [Mass/Vol] 1.09 mg/dL Normal 0.64-1.[address] [facility] Comment on above: Result Comment: --- 12/10/201239 --- Creat previously reported as: 1.01 mg/dL Performed By: #### B MP, HS TROP, CBC, PT, PTT, BNP #### [address] Creatinine Clr Calc Pharmacy 77.72 [facility] Comment on above: Result Comment: --- 12/10/201239 --- Creat Calc PHA previously reported as: 83.87 PERFORMED BY: [place] [address] PATHOLOGIST SUPER[employer] OLIVIER M.D. Performed By: #### B MP, HS TROP, CBC, PT, PTT, BNP #### [address] Estimated GFR ( Nata > 60 [facility] Comment on above: Result Comment: --- 12/10/201226 --- GFReAA previously reported as: > 60 mL/Min GFR estimated reference range: According to KDOQI guidelines, <60 ml/min/1.73m2 is sufficient to diagnose a patient with chronic kidney disease. Performed By: #### B MP, HS TROP, CBC, PT, PTT, BNP #### [address] Estimated GFR (Non- Am > 60 [facility] Comment on above: Result Comment: --- 12/10/201226 --- GFRe previously reported as: > 60 mL/Min Performed By: #### B MP, HS TROP, CBC, PT, PTT, BNP #### [address] Globulin (S) [Mass/Vol] 3.3 g/dL [facility] Comment on above: Result Comment: --- 12/10/201226 --- Glob previously reported as: 3.3 gm/dL Performed By: #### B MP, HS TROP, CBC, PT, PTT, BNP #### [address] Glucose [Mass/Vol] 160 mg/dL High 70-100 [facility] Comment on above: Result Comment: Resu [...] HS TROP, CBC, PT, PTT, BNP #### [address] Potassium [Moles/Vol] 4.1 mmol/L Normal 3.5-5.[address] [facility] Comment on above: Result Comment: --- 12/10/20 124 --- K previously reported as: 3.8 mmol/L Performed By: #### B MP, HS TROP, CBC, PT, PTT, BNP #### [address] Protein [Mass/Vol] 6.4 g/dL Normal 6.1-7.9 [facility] Comment on above: Result Comment: --- 12/10/201240 --- TP previously reported as: 6.1 gm/dL Performed By: #### B MP, HS TROP, CBC, PT, PTT, BNP #### [address] Sodium [Moles/Vol] 134 mmol/L Low 136-146 [facility] Comment on above: Result Comment: --- 12/10/201240 --- NA previously reported as: 128 # L mmol/L Performed By: #### B MP, HS TROP, CBC, PT, PTT, BNP #### [address] Urea nitrogen [Mass/Vol] 10 mg/dL Normal 9-[address] [facility] Comment on above: Result Comment: --- 12/10/20 123 --- BUN previously reported as: 10 mg/dL Performed By: #### B MP, HS TROP, CBC, PT, PTT, BNP #### [place] [address] [place] ECG 12 lead ECGon 12-10-2020 ECG 12 lead ECG [facility] [address] Electrocardiograph Report Signed Patient: Vishal Duke MR#: [id number] : 1960 Acct:[id number] Age/Sex: 59 / M ADM Date: 12/08/20 Loc: 4C Room: [address] [place] [address] Type: ADM IN Attending Dr: Leonardo Storey [...] in Lateral leads Confirmed by [facility] ([id number] on 12/10/2020 9:00:58 AM Referred By: Electronically Signed By:KADEN DAUGHERTY MD [facility] Transcribed By: MUS Dictated By: Kaden Daugherty MD, FACC 12/10/20 0652 Signed By: 12/10/20 [address] [facility] ECH echo transthoracicon ECH echo transthoracic [facility] [place] [address] Echocardiogram Signed Patient: Vishal Duke MR#: [id number] : 1960 Acct:[id number] Age/Sex: 59 / M ADM Date: 12/08/20 Loc: Room: [address] [place] [address] Type: ADM IN Attending Dr: Leonardo Storey [...] Transcribed By: VIRIDIANA 12/10/20 1150 Dictated By: iGovana Fu DO 12/10/20 0816 Signed By: 12/10/20 [address] [facility] Glucose Poct Glucometerson 0 12-10-2020 Glucose [Mass/Vol] 157 mg/dL Normal [facility] Comment on above: Result Comment: [place] om Glucose Reference Range is dependent on time and content of last meal. Glucose of more than 200 mg/dL in a nonstressed, ambulatory subject supports the diagnosis of Diabetes Mellitus. PERFORMED BY: [place] [address] PATHOLOGIST SUPERVIS[employer] OLIVIER M.D. Performed By: #### B MP, HS TROP, CBC, PT, PTT, BNP #### [address] Commemt1 Glu2: Cleaned Meter Normal [facility] Comment on above: Result Comment: PERF ORMED BY: [place] [address] PATHOLOGIST SU[employer]IV[employer] M.D. Performed By: #### B MP, HS TROP, CBC, PT, PTT, BNP #### [address] Glucose [Mass/Vol] 122 mg/dL Normal [facility] Comment on above: Result Comment: [place] om Glucose Reference Range is dependent on time and content of last meal. Glucose of more than 200 mg/dL in a nonstressed, ambulatory subject supports the diagnosis of Diabetes Mellitus. Performed By: #### B MP, HS TROP, CBC, PT, PTT, BNP #### [facility] [address] [place] [address] [place] Glucose [Mass/Vol] 179 mg/dL Normal [facility] Comment on above: Result Comment: [place] Glucose Reference Range is dependent on time and content of last meal. Glucose of more than 200 mg/dL in a nonstressed, ambulatory subject supports the diagnosis of Diabetes Mellitus. PERFORMED BY: [address] [place] [address] PATHOLOGIST [employer] OLIVIER M.D. Performed By: #### B MP, HS TROP, CBC, PT, PTT, BNP #### [place] [id number] [facility] Troponin I High Sensitivityo n 12-10-2020 Troponin I High Sensitivity 9777 pg/mL Off scale high 0-[address] [facility] Comment on above: Result Comment: PERF ORMED BY: [place] [address] PATHOLOGIST SUPER[employer]IV[employer] M.D. Performed By: #### B MP, HS TROP, CBC, PT, PTT, BNP #### [place] [id number] [facility] XR chest 1V portableon 12-10 XR chest 1V portable [facility] [place] [address] [place] [address] XRay Report Signed Patient: Vishal Duke MR#: [id number] : 1960 Acct:[id number] Age/Sex: 59 / M ADM Date: 12/08/20 Loc: Room: [address] [place] [address] Type: ADM IN Attending Dr: Leonardo Storey [...] Ajith Saleh M.D.12/10/2020 8:05 AM Dictation Location: [place] [address] Transcribed By: [facility] 12/10/20804 Dictated By: Ajith Saleh II, MD 12/10/20802 Signed By: 12/10/20804 [facility] Basic Metabolic Panelon 11-16 Calcium [Mass/Vol] 9.6 mg/dL Normal 8.2-10.2 [facility] Comment on above: Performed By: #### B MP, HS TROP, CBC, PT, PTT, BNP #### [address] Chloride [Moles/Vol] 101 mmol/L Normal 95-114 [facility] Comment on above: Performed By: #### B MP, HS TROP, CBC, PT, PTT, BNP #### [address] CO2 [Moles/Vol] 23.3 mmol/L Normal 22.0-30.0 [facility] Comment on above: Performed By: #### B MP, HS TROP, CBC, PT, PTT, BNP #### [address] Creatinine [Mass/Vol] 0.97 mg/dL Normal 0.64-1.[address] [facility] Comment on above: Performed By: #### B MP, HS TROP, CBC, PT, PTT, BNP #### [address] Creatinine Clr Calc Pharmacy 87.33 [facility] Comment on above: Result Comment: PERF ORMED BY: [place] [address] PATHOLOGIST SUPER[employer] OLIVIER M.D. Performed By: #### B MP, HS TROP, CBC, PT, PTT, BNP #### [address] Estimated GFR ( Nata > 60 [facility] Comment on above: Result Comment: GFR estimated reference range: According to KDOQI guidelines, <60 ml/min/1.73m2 is sufficient to diagnose a patient with chronic kidney disease. Performed By: #### B MP, HS TROP, CBC, PT, PTT, BNP #### [address] Estimated GFR (Non- Am > [address] [facility] Comment on above: Performed By: #### B MP, HS TROP, CBC, PT, PTT, BNP #### [address] Glucose [Mass/Vol] 128 mg/dL High 70-100 [facility] Comment on above: Result Comment: [place] Glucose Reference Range is dependent on time and content of last meal. Glucose of more than 200 mg/dL in a nonstressed, ambulatory subject supports the diagnosis of Diabetes Mellitus. ADA recommended reference range Performed By: #### B MP, HS TROP, CBC, PT, PTT, BNP #### [address] Potassium [Moles/Vol] 4.2 mmol/L Normal 3.5-5.[address] [facility] Comment on above: Performed By: #### B MP, HS TROP, CBC, PT, PTT, BNP #### [address] Sodium [Moles/Vol] 139 mmol/L Normal 136-146 [facility] Comment on above: Performed By: #### B MP, HS TROP, CBC, PT, PTT, BNP #### [place] [address] [place] Urea nitrogen [Mass/Vol] 15 mg/dL Normal 9-[address] [facility] Comment on above: Performed By: #### B MP, HS TROP, CBC, PT, PTT, BNP #### [address] Complete Blood Count Auto Di ffon 12-09-2020 Basophils (Bld) [#/Vol] 0.1 10*3/uL Normal 0.0-0.[address] [facility] Comment on above: Result Comment: PERF ORMED BY: [place] [address] PATHOLOGIST SUPER[employer] OLIVIER M.D. Performed By: #### B MP, HS TROP, CBC, PT, PTT, BNP #### [address] Basophils/100 WBC (Bld) 1.0 % Normal . [facility] Comment on above: Performed By: #### B MP, HS TROP, CBC, PT, PTT, BNP #### [address] Eosinophils (Bld) [#/Vol] 0.2 10*3/uL Normal 0.0-0.[address] [facility] Comment on above: Performed By: #### B MP, HS TROP, CBC, PT, PTT, BNP #### [address] Eosinophils/100 WBC (Bld) 2.8 % Normal . [facility] Comment on above: Performed By: #### B MP, HS TROP, CBC, PT, PTT, BNP #### [address] Erythrocyte distribution width (RBC) [Ratio] 15.0 % High 12.0-14.[address] [facility] Comment on above: Performed By: #### B MP, HS TROP, CBC, PT, PTT, BNP #### [address] Hematocrit (Bld) [Volume fraction] 41.9 % Normal 38.8-50.[address] [facility] Comment on above: Performed By: #### B MP, HS TROP, CBC, PT, PTT, BNP #### [address] Hemoglobin (Bld) [Mass/Vol] 14.2 g/dL Normal 13.0-17.[address] [facility] Comment on above: Performed By: #### B MP, HS TROP, CBC, PT, PTT, BNP #### [address] Lymphocytes (Bld) [#/Vol] 1.1 10*3/uL Normal 1.00-4.[address] [facility] Comment on above: Performed By: #### B MP, HS TROP, CBC, PT, PTT, BNP #### [facility] [address] Lymphocytes/100 WBC (Bld) 13.9 % Normal . [facility] Comment on above: Performed By: #### B MP, HS TROP, CBC, PT, PTT, BNP #### [address] MCH (RBC) [Entitic mass] 31.4 pg Normal 27.5-35.[address] [facility] Comment on above: Performed By: #### B MP, HS TROP, CBC, PT, PTT, BNP #### [address] MCV (RBC) [Entitic vol] 92.5 fL Normal 83.5-[address] [facility] Comment on above: Performed By: #### B MP, HS TROP, CBC, PT, PTT, BNP #### [address] Mean Corpuscular HGB Conc 33.9 g/dL Normal 32.5-35.[address] [facility] Comment on above: Performed By: #### B MP, HS TROP, CBC, PT, PTT, BNP #### [address] Monocytes (Bld) [#/Vol] 0.6 10*3/uL Normal 0.0-0.[address] [facility] Comment on above: Performed By: #### B MP, HS TROP, CBC, PT, PTT, BNP #### [address] Monocytes/100 WBC (Bld) 8.3 % Normal . [facility] Comment on above: Performed By: #### B MP, HS TROP, CBC, PT, PTT, BNP #### [place] [address] [place] Neutrophils (Bld) [#/Vol] 5.8 10*3/uL Normal 1.8-7.[address] [facility] Comment on above: Performed By: #### B MP, HS TROP, CBC, PT, PTT, BNP #### [address] Neutrophils/100 WBC (Bld) 74.0 % Normal . [facility] Comment on above: Performed By: #### B MP, HS TROP, CBC, PT, PTT, BNP #### [address] Nucleated RBC/100 WBC (Bld) [Ratio] 0.0 % Normal 0-0.[address] [facility] Comment on above: Performed By: #### B MP, HS TROP, CBC, PT, PTT, BNP #### [address] Platelet mean volume (Bld) [Entitic vol] 8.0 fL Normal 6.6-10.[address] [facility] Comment on above: Performed By: #### B MP, HS TROP, CBC, PT, PTT, BNP #### [address] Platelets (Bld) [#/Vol] 409 10*3/uL Normal 150-[address] [facility] Comment on above: Performed By: #### B MP, HS TROP, CBC, PT, PTT, BNP #### [address] RBC (Bld) [#/Vol] 4.53 10*6/uL Normal 3.90-5.60 [facility] Comment on above: Performed By: #### B MP, HS TROP, CBC, PT, PTT, BNP #### [place] [address] [place] WBC (Bld) [#/Vol] 7.8 10*3/uL Normal 4.5-11.0 [facility] Comment on above: Performed By: #### B MP, HS TROP, CBC, PT, PTT, BNP #### [place] [id number] [place] Creatine Kinaseon 12-09-2020 CK [Catalytic activity/Vol] 128 U/L Normal 22-[address] [facility] Comment on above: Order Comment: get a ll labs @0315 per rn Performed By: #### B MP, HS TROP, CBC, PT, PTT, BNP #### [facility] [address] [place] [address] [place] Creatinine Kinase MBon 12-09 CK.MB [Mass/Vol] 15.6 ng/mL High 0.6-6.3 [facility] Comment on above: Order Comment: get a ll labs @0315 per rn Performed By: #### B MP, HS TROP, CBC, PT, PTT, BNP #### [facility] [address] CKMB Relative Index 12.1 % High 0.00-2.50 [facility] Comment on above: Order Comment: get a ll labs @0315 per rn Performed By: #### B MP, HS TROP, CBC, PT, PTT, BNP #### [facility] [address] [place] [address] [place] ECG 12 lead ECGon 12-09-2020 ECG 12 lead ECG [facility] [place] [address] Electrocardiograph Report Signed Patient: Vishal Duke MR#: [id number] : 1960 Acct:[id number] Age/Sex: 59 / M ADM Date: 12/08/20 Loc: Room: [address] [place] [address] Type: ADM IN Attending Dr: Leonardo Storey [...] 12/09/20 0816 Signed By: 12/09/20 [address] [facility] Magnesiumon 12-09-2020 Magnesium [Mass/Vol] 2.0 mg/dL Normal 1.6-2.6 [facility] Comment on above: Order Comment: Comme nt Add on to am Result Comment: PERF ORMED BY: [place] [address] PATHOLOGIST SUPERVIS[employer] OLIVIER M.D. Performed By: #### B MP, HS TROP, CBC, PT, PTT, BNP #### [facility] [address] [place] [address] Partial Thromboplastin Timeo n 12-09-2020 aPTT Coag (Bld) [Time] 37.7 s High 25.1-36.[address] [facility] Comment on above: Result Comment: PERF ORMED BY: [place] [address] PATHOLOGIST SUPERVIS[employer] OLIVIER M.D. Performed By: #### B MP, HS TROP, CBC, PT, PTT, BNP #### [facility] [address] [place] [address] Prothrombin Time INRon 12-09 INR Coag (PPP) [Relative time] 1.2 {INR} Normal [facility] Comment on above: Result Comment: INR [...] HS TROP, CBC, PT, PTT, BNP #### [address] PT Coag (PPP) [Time] 13.8 s High 9.0-12.9 [facility] Comment on above: Performed By: #### B MP, HS TROP, CBC, PT, PTT, BNP #### [address] Troponin I High Sensitivityo n 12-09-2020 Troponin I High Sensitivity 1641 pg/mL Off scale high 0-[address] [facility] Comment on above: Order Comment: * RN to call lab when pt returns hko Result Comment: PERF ORMED BY: [place] [address] PATHOLOGIST SUPERVIS[employer] OLIVIER M.D. Performed By: #### B MP, HS TROP, CBC, PT, PTT, BNP #### [address] Troponin I High Sensitivity 2472 pg/mL Off scale high 0-[address] [facility] Comment on above: Order Comment: Comme nt during code blue Result Comment: PERF ORMED BY: [place] [address] PATHOLOGIST SUPERVIS[employer] OLIVIER M.D. Performed By: #### B MP, HS TROP, CBC, PT, PTT, BNP #### [address] Troponin I High Sensitivity 1363 pg/mL Off scale high 0-[address] [facility] Comment on above: Order Comment: get a ll labs @0315 per rn Result Comment: PERF ORMED BY: [place] [address] PATHOLOGIST SUPERVIS[employer] OLIVIER M.D. Performed By: #### B MP, HS TROP, CBC, PT, PTT, BNP #### [address] B-Type Natriuretic Peptideon 12-08-2020 Natriuretic peptide B (Bld) [Mass/Vol] 199.0 pg/mL High 5-[address] [facility] Comment on above: Result Comment: PERF ORMED BY: [place] [address] PATHOLOGIST SUPERVIS[employer] OLIVIER M.D. Performed By: #### B MP, HS TROP, CBC, PT, PTT, BNP #### [address] Basic Metabolic Panelon 082 Calcium [Mass/Vol] 10.1 mg/dL Normal 8.2-10.2 [facility] Comment on above: Performed By: #### B MP, HS TROP, CBC, PT, PTT, BNP #### [address] Chloride [Moles/Vol] 101 mmol/L Normal 95-114 [facility] Comment on above: Performed By: #### B MP, HS TROP, CBC, PT, PTT, BNP #### [address] CO2 [Moles/Vol] 23.2 mmol/L Normal 22.0-30.0 [facility] Comment on above: Performed By: #### B MP, HS TROP, CBC, PT, PTT, BNP #### [address] Creatinine [Mass/Vol] 1.15 mg/dL Normal 0.64-1.[address] [facility] Comment on above: Performed By: #### B MP, HS TROP, CBC, PT, PTT, BNP #### [address] Creatinine Clr Calc Pharmacy 81.[address] [facility] Comment on above: Result Comment: PERF ORMED BY: [place] [address] PATHOLOGIST SUPERVIS[employer] OLIVIER M.D. Performed By: #### B MP, HS TROP, CBC, PT, PTT, BNP #### [address] Estimated GFR ( Nata > [address] [facility] Comment on above: Result Comment: GFR estimated reference range: According to KDOQI guidelines, <60 ml/min/1.73m2 is sufficient to diagnose a patient with chronic kidney disease. Performed By: #### B MP, HS TROP, CBC, PT, PTT, BNP #### [facility] [address] Estimated GFR (Non- Am > [address] [facility] Comment on above: Performed By: #### B MP, HS TROP, CBC, PT, PTT, BNP #### [facility] [address] Glucose [Mass/Vol] 153 mg/dL High 70-100 [facility] Comment on above: Result Comment: [place] om Glucose Reference Range is dependent on time and content of last meal. Glucose of more than 200 mg/dL in a nonstressed, ambulatory subject supports the diagnosis of Diabetes Mellitus. ADA recommended reference range Performed By: #### B MP, HS TROP, CBC, PT, PTT, BNP #### [facility] [address] Potassium [Moles/Vol] 4.5 mmol/L Normal 3.5-5.[address] [facility] Comment on above: Performed By: #### B MP, HS TROP, CBC, PT, PTT, BNP #### [address] Sodium [Moles/Vol] 139 mmol/L Normal 136-146 [facility] Comment on above: Performed By: #### B MP, HS TROP, CBC, PT, PTT, BNP #### [place] [address] [place] Urea nitrogen [Mass/Vol] 15 mg/dL Normal 9-[address] [facility] Comment on above: Performed By: #### B MP, HS TROP, CBC, PT, PTT, BNP #### [address] COVID-19 Antigenon 1 COVID-19 [facility] [...] its performance Tessa Disclaimer characteristic determined by [employer] and Tessa Disclaimer validated at [facility]. This Tessa Disclaimer test has not [...] is terminated or revoked sooner. PERFORMED BY: [place] [address] PATHOLOGIST SUPERVISOR [employer] OLIVIER M.D. Normal [facility] Comment on above: Performed By: #### S OFIANEG, COVID-19 [place], COVID 19 [place] [facility] #### [address] COVID-19 [facility] 12-08-2020 SARS-CoV-2 (COVID-19) RNA ADELINE+probe Ql (Unsp spec) Negative Normal Negative [facility] Comment on above: Order Comment: Healt hcare Worker?: N Result Comment: Testing for SARS-CoV-2 by RT-PCR This test was developed and its performance characteristics determined by Jessica, [employer] and validated at the [facility]. This test has not been FDA [...] is terminated or revoked sooner. PERFORMED BY: [place] [address] PATHOLOGIST SUPERVIS[employer]IVIER M.D. Performed By: #### B MP, HS TROP, CBC, PT, PTT, BNP #### [address] abdomen pelvis wo conon 0 12-08-2020 CT abdomen pelvis wo con [facility] [place] [address] [place] [address] CT Scan Report Signed Patient: Vishal Duke MR#: [id number] : 1960 Acct:[id number] Age/Sex: 59 / M ADM Date: 12/08/20 Loc: ER Room: Type: [facility] ER Attending Dr: Ordering [...] Biju Ag M.D.12/08/2020 11:16 AM Dictation Location: [place] [address] Transcribed By: [facility] 12/08/20 1116 Dictated By: Biju Ag MD 12/08/20 1102 Signed By: 12/08/[address] [facility] Complete Blood Count Auto Di ffon 12-08-2020 Basophils (Bld) [#/Vol] 0.1 10*3/uL Normal 0.0-0.[address] [facility] Comment on above: Result Comment: PERF ORMED BY: [place] [address] PATHOLOGIST SUPERVIS[employer]IVIER M.D. Performed By: #### B MP, HS TROP, CBC, PT, PTT, BNP #### [address] Basophils/100 WBC (Bld) 0.6 % Normal . [facility] Comment on above: Performed By: #### B MP, HS TROP, CBC, PT, PTT, BNP #### [address] Eosinophils (Bld) [#/Vol] 0.2 10*3/uL Normal 0.0-0.[address] [facility] Comment on above: Performed By: #### B MP, HS TROP, CBC, PT, PTT, BNP #### [address] Eosinophils/100 WBC (Bld) 2.5 % Normal . [facility] Comment on above: Performed By: #### B MP, HS TROP, CBC, PT, PTT, BNP #### [address] Erythrocyte distribution width (RBC) [Ratio] 15.2 % High 12.0-14.[address] [facility] Comment on above: Performed By: #### B MP, HS TROP, CBC, PT, PTT, BNP #### [address] Hematocrit (Bld) [Volume fraction] 41.7 % Normal 38.8-50.[address] [facility] Comment on above: Performed By: #### B MP, HS TROP, CBC, PT, PTT, BNP #### [address] Hemoglobin (Bld) [Mass/Vol] 14.0 g/dL Normal 13.0-17.[address] [facility] Comment on above: Performed By: #### B MP, HS TROP, CBC, PT, PTT, BNP #### [address] Lymphocytes (Bld) [#/Vol] 0.9 10*3/uL Low 1.00-4.[address] [facility] Comment on above: Performed By: #### B MP, HS TROP, CBC, PT, PTT, BNP #### [address] Lymphocytes/100 WBC (Bld) 10.9 % Normal . [facility] Comment on above: Performed By: #### B MP, HS TROP, CBC, PT, PTT, BNP #### [address] MCH (RBC) [Entitic mass] 31.5 pg Normal 27.5-35.[address] [facility] Comment on above: Performed By: #### B MP, HS TROP, CBC, PT, PTT, BNP #### [address] MCV (RBC) [Entitic vol] 93.7 fL Normal 83.5-[address] [facility] Comment on above: Performed By: #### B MP, HS TROP, CBC, PT, PTT, BNP #### [address] Mean Corpuscular HGB Conc 33.6 g/dL Normal 32.5-35.[address] [facility] Comment on above: Performed By: #### B MP, HS TROP, CBC, PT, PTT, BNP #### [address] Monocytes (Bld) [#/Vol] 0.6 10*3/uL Normal 0.0-0.[address] [facility] Comment on above: Performed By: #### B MP, HS TROP, CBC, PT, PTT, BNP #### [address] Monocytes/100 WBC (Bld) 7.4 % Normal . [facility] Comment on above: Performed By: #### B MP, HS TROP, CBC, PT, PTT, BNP #### [place] [address] [place] Neutrophils (Bld) [#/Vol] 6.7 10*3/uL Normal 1.8-7.[address] [facility] Comment on above: Performed By: #### B MP, HS TROP, CBC, PT, PTT, BNP #### [address] Neutrophils/100 WBC (Bld) 78.6 % Normal . [facility] Comment on above: Performed By: #### B MP, HS TROP, CBC, PT, PTT, BNP #### [address] Nucleated RBC/100 WBC (Bld) [Ratio] 0.1 % Normal 0-0.[address] [facility] Comment on above: Performed By: #### B MP, HS TROP, CBC, PT, PTT, BNP #### [address] Platelet mean volume (Bld) [Entitic vol] 8.2 fL Normal 6.6-10.[address] [facility] Comment on above: Performed By: #### B MP, HS TROP, CBC, PT, PTT, BNP #### [address] Platelets (Bld) [#/Vol] 414 10*3/uL Normal 150-[address] [facility] Comment on above: Performed By: #### B MP, HS TROP, CBC, PT, PTT, BNP #### [address] RBC (Bld) [#/Vol] 4.44 10*6/uL Normal 3.90-5.60 [facility] Comment on above: Performed By: #### B MP, HS TROP, CBC, PT, PTT, BNP #### [address] WBC (Bld) [#/Vol] 8.5 10*3/uL Normal 4.5-11.0 [facility] Comment on above: Performed By: #### B MP, HS TROP, CBC, PT, PTT, BNP #### [address] Basophils (Bld) [#/Vol] 0.1 10*3/uL Normal 0.0-0.[address] [facility] Comment on above: Result Comment: PERF ORMED BY: [place] [address] PATHOLOGIST SUPER[employer] OLIVIER M.D. Performed By: #### B MP, HS TROP, CBC, PT, PTT, BNP #### [address] Basophils/100 WBC (Bld) 0.7 % Normal . [facility] Comment on above: Performed By: #### B MP, HS TROP, CBC, PT, PTT, BNP #### [address] Eosinophils (Bld) [#/Vol] 0.2 10*3/uL Normal 0.0-0.[address] [facility] Comment on above: Performed By: #### B MP, HS TROP, CBC, PT, PTT, BNP #### [address] Eosinophils/100 WBC (Bld) 1.8 % Normal . [facility] Comment on above: Performed By: #### B MP, HS TROP, CBC, PT, PTT, BNP #### [address] Erythrocyte distribution width (RBC) [Ratio] 15.5 % High 12.0-14.[address] [facility] Comment on above: Performed By: #### B MP, HS TROP, CBC, PT, PTT, BNP #### [address] Hematocrit (Bld) [Volume fraction] 42.0 % Normal 38.8-50.[address] [facility] Comment on above: Performed By: #### B MP, HS TROP, CBC, PT, PTT, BNP #### [address] Hemoglobin (Bld) [Mass/Vol] 14.2 g/dL Normal 13.0-17.[address] [facility] Comment on above: Performed By: #### B MP, HS TROP, CBC, PT, PTT, BNP #### [address] Lymphocytes (Bld) [#/Vol] 0.8 10*3/uL Low 1.00-4.[address] [facility] Comment on above: Performed By: #### B MP, HS TROP, CBC, PT, PTT, BNP #### [address] Lymphocytes/100 WBC (Bld) 7.7 % Normal . [facility] Comment on above: Performed By: #### B MP, HS TROP, CBC, PT, PTT, BNP #### [address] MCH (RBC) [Entitic mass] 31.3 pg Normal 27.5-35.[address] [facility] Comment on above: Performed By: #### B MP, HS TROP, CBC, PT, PTT, BNP #### [address] MCV (RBC) [Entitic vol] 92.4 fL Normal 83.5-[address] [facility] Comment on above: Performed By: #### B MP, HS TROP, CBC, PT, PTT, BNP #### [address] Mean Corpuscular HGB Conc 33.9 g/dL Normal 32.5-35.[address] [facility] Comment on above: Performed By: #### B MP, HS TROP, CBC, PT, PTT, BNP #### [address] Monocytes (Bld) [#/Vol] 0.8 10*3/uL Normal 0.0-0.[address] [facility] Comment on above: Performed By: #### B MP, HS TROP, CBC, PT, PTT, BNP #### [address] Monocytes/100 WBC (Bld) 7.5 % Normal . [facility] Comment on above: Performed By: #### B MP, HS TROP, CBC, PT, PTT, BNP #### [address] Neutrophils (Bld) [#/Vol] 9.0 10*3/uL High 1.8-7.[address] [facility] Comment on above: Performed By: #### B MP, HS TROP, CBC, PT, PTT, BNP #### [address] Neutrophils/100 WBC (Bld) 82.3 % Normal . [facility] Comment on above: Performed By: #### B MP, HS TROP, CBC, PT, PTT, BNP #### [address] Nucleated RBC/100 WBC (Bld) [Ratio] 0.1 % Normal 0-0.[address] [facility] Comment on above: Performed By: #### B MP, HS TROP, CBC, PT, PTT, BNP #### [address] Platelet mean volume (Bld) [Entitic vol] 7.9 fL Normal 6.6-10.[address] [facility] Comment on above: Performed By: #### B MP, HS TROP, CBC, PT, PTT, BNP #### [address] Platelets (Bld) [#/Vol] 463 10*3/uL High 150-[address] [facility] Comment on above: Performed By: #### B MP, HS TROP, CBC, PT, PTT, BNP #### [address] RBC (Bld) [#/Vol] 4.54 10*6/uL Normal 3.90-5.60 [facility] Comment on above: Performed By: #### B MP, HS TROP, CBC, PT, PTT, BNP #### [address] WBC (Bld) [#/Vol] 11.0 10*3/uL Normal 4.5-11.0 [facility] Comment on above: Performed By: #### B MP, HS TROP, CBC, PT, PTT, BNP #### [address] Creatine Kinaseon 12-08-2020 CK [Catalytic activity/Vol] 78 U/L Normal 22-[address] [facility] Comment on above: Performed By: #### B MP, HS TROP, CBC, PT, PTT, BNP #### [facility] [address] [place] [address] CK [Catalytic activity/Vol] 67 U/L Normal [facility] Comment on above: Performed By: #### B MP, HS TROP, CBC, PT, PTT, BNP #### [facility] [address] [place] [address] CK [Catalytic activity/Vol] 58 U/L Normal [facility] Comment on above: Performed By: #### B MP, HS TROP, CBC, PT, PTT, BNP #### [address] Creatinine Kinase MBon 12-08 CK.MB [Mass/Vol] 6.3 ng/mL Normal 0.6-6.3 [facility] Comment on above: Performed By: #### B MP, HS TROP, CBC, PT, PTT, BNP #### [address] CKMB Relative Index 8.0 % High 0.00-2.50 [facility] Comment on above: Performed By: #### B MP, HS TROP, CBC, PT, PTT, BNP #### [address] CK.MB [Mass/Vol] 4.2 ng/mL Normal 0.6-6.3 [facility] Comment on above: Performed By: #### B MP, HS TROP, CBC, PT, PTT, BNP #### [place] [address] [place] CKMB Relative Index 6.2 % High 0.00-2.50 [facility] Comment on above: Performed By: #### B MP, HS TROP, CBC, PT, PTT, BNP #### [address] CK.MB [Mass/Vol] 3.7 ng/mL Normal 0.6-6.3 [facility] Comment on above: Performed By: #### B MP, HS TROP, CBC, PT, PTT, BNP #### [facility] [address] CKMB Relative Index 6.3 % High 0.00-2.50 [facility] Comment on above: Performed By: #### B MP, HS TROP, CBC, PT, PTT, BNP #### [facility] [address] ECG 12 lead ECGon 12-08-2020 ECG 12 lead ECG [facility] [place] [address] [place] [address] Electrocardiograph Report Signed Patient: Vishal Duke MR#: [id number] : 1960 Acct:[id number] Age/Sex: 59 / M ADM Date: 12/08/20 Loc: Room: [address] [place] [address] Type: ADM INOo Attending Dr: Daniel Prabhakar [...] Lateral leads Confirmed by IRWIN LUTZ DO ([id number]) on 12/09/2020 6:02:40 AM Referred By: Electronically Signed By:IRWIN LUTZ DO Transcribed By: MUS Dictated By: Irwin Lutz DO 12/08/20 0950 Signed By: 12/09/20 [address] [facility] Partial Thromboplastin Timeo n 12-08-2020 aPTT Coag (Bld) [Time] 131.9 s Off scale high 25.1-36.[address] [facility] Comment on above: Result Comment: Resu lts called at 1947 on 12/08/20 PERFORMED BY: [place] [address] PATHOLOGIST SU[employer] OLIVIER M.D. Performed By: #### B MP, HS TROP, CBC, PT, PTT, BNP #### [facility] [address] [place] [address] [facility] aPTT Coag (Bld) [Time] 36.2 s Normal 25.1-36.[address] [facility] Comment on above: Result Comment: PERF ORMED BY: [place] [address] PATHOLOGIST SUPER[employer]IV[employer] M.D. Performed By: #### B MP, HS TROP, CBC, PT, PTT, BNP #### [address] [address] [facility] Prothrombin Time INRon 12-08 INR Coag (PPP) [Relative time] 1.5 {INR} Normal [facility] Comment on above: Result Comment: INR [...] HS TROP, CBC, PT, PTT, BNP #### [facility] [address] [place], [place] [id number] [place] PT Coag (PPP) [Time] 16.1 s High 9.0-12.9 [facility] Comment on above: Performed By: #### B MP, HS TROP, CBC, PT, PTT, BNP #### [facility] [address] [place], [place] [id number] [facility] INR Coag (PPP) [Relative time] 1.3 {INR} Normal [facility] Comment on above: Result Comment: INR [...] HS TROP, CBC, PT, PTT, BNP #### [facility] [address] PT Coag (PPP) [Time] 14.0 s High 9.0-12.9 [facility] Comment on above: Performed By: #### B MP, HS TROP, CBC, PT, PTT, BNP #### [facility] [address] Tessa Ag Negativeon 12-09-19 Tessa Ag Negative Negative Normal Negative [facility] Comment on above: Result Comment: This is a duplicate Tessa SARS Antigen (GISSEL) result to be used for statistical tracking purpose only. PERFORMED BY: [place] [address] PATHOLOGIST SUPER[employer] OLIVIER M.D. Performed By: #### S OFIANEG, COVID-19 [place], COVID 19 [place] [facility] [place] #### [place] [address] [place] Troponin I High Sensitivityo n 12-08-2020 Troponin I High Sensitivity 474 pg/mL Off scale high 0-[address] [facility] Comment on above: Result Comment: PERF ORMED BY: [place] [address] PATHOLOGIST SUPER[employer]IV[employer] M.D. Performed By: #### B MP, HS TROP, CBC, PT, PTT, BNP #### [facility] [address] [place] [address] Troponin I High Sensitivity 317 pg/mL Off scale high 0-[address] [facility] Comment on above: Result Comment: PERF ORMED BY: [place] [address] PATHOLOGIST SUPERVIS[employer]IV[employer] M.D. Performed By: #### B MP, HS TROP, CBC, PT, PTT, BNP #### [facility] [address] [place] [address] [place] Troponin I High Sensitivity 183 pg/mL Off scale high 0-[address] [facility] Comment on above: Result Comment: Crit ical value result called at 1719 on 12/08/20 PERFORMED BY: [place] [address] PATHOLOGIST SUPER[employer]IV[employer] M.D. Performed By: #### B MP, HS TROP, CBC, PT, PTT, BNP #### [address] Troponin I High Sensitivity 49 pg/mL High 0-[address] [facility] Comment on above: Result Comment: PERF ORMED BY: [place] [address] PATHOLOGIST SUPER[employer]IVIER M.D. Performed By: #### B MP, HS TROP, CBC, PT, PTT, BNP #### [place] [id number] [facility] XR chest 1V portableon 12-08 XR chest 1V portable [facility] [place] [address] XRay Report Signed Patient: Vishal Duke MR#: [id number] : 1960 Acct:[id number] Age/Sex: 59 / M ADM Date: 12/08/20 Loc: ER Room: Type: [facility] ER Attending Dr: Ordering [...] Biju Ag M.D.12/08/2020 11:02 AM Dictation Location: [place] [address] Transcribed By: [facility] 12/08/20 1102 Dictated By: Biju Ag MD 12/08/20 1059 Signed By: 12/08/20 1102 [facility] TACROLIMUSon 12-04-2020 Tacrolimus (Bld) [Mass/Vol] 8.0 ng/mL Normal 5.0-20.0 [facility] Comment on above: Order Comment: Yes: Add to Previous draw if able Result Comment: [employer] Tacrolimus assay is a delayed one-step immunoassay for the quantitative determination of tacrolimus in human whole blood using the chemiluminescent microparticle immunoassay (CMIA) technology with flexible assay protocols, referred to as Chemiflex. Performed By: #### 2 5508, 24930, 47975, 27322, 23240 #### [facility] [address] [place] [place] [address], [facility] TROPONIN-Ion 12-04-2020 Troponin I.cardiac [Mass/Vol] 0.03 ng/mL Normal 0.00-0.04 [facility] Comment on above: Order Comment: No: D o not add to previous draw Pt in bath room askme to come back Result Comment: REFE RENCE RANGES: 0.00 - 0.04 ng/ml NORMAL 0.05 - 0.50 ng/ml INDETERMINATE > 0.50 ng/ml CONSISTENT WITH AN M.I. Performed By: #### 3 5200 #### [facility] [address] [place] [address], [facility] Order Comment: No: D o not add to previous draw Performed By: #### 2 5508, 36346, 68707, 69264, 66082 #### [facility] [address] [place] [address], [facility] Troponin I.cardiac [Mass/Vol] 0.03 ng/mL Normal 0.00-0.04 [facility] Comment on above: Result Comment: REFE RENCE RANGES: 0.00 - 0.04 ng/ml NORMAL 0.05 - 0.50 ng/ml INDETERMINATE > 0.50 ng/ml CONSISTENT WITH AN M.I. Performed By: #### 2 5508, 84049, 41176, 55977, 17811 #### [facility] [address] [place] [address], [place] ktx basic metabolic panelon 12-04-2020 Calcium [Mass/Vol] 8.9 mg/dL Normal 8.6-10.3 [facility] Comment on above: Performed By: #### 2 5508, 94223, 48497, 16545, 18396 #### [facility] [address] [place] [address], [place] Chloride [Moles/Vol] 106 mmol/L Normal 98-107 [facility] Comment on above: Performed By: #### 2 5508, 99008, 59173, 42515, 42682 #### [facility] [address] [place] [address], [place] CO2 [Moles/Vol] 19 mmol/L Low 21-31 [facility] Comment on above: Performed By: #### 2 5508, 64202, 87860, 93836, 84996 #### [facility] [address] [place] [address], [place] Creatinine [Mass/Vol] 0.82 mg/dL Normal 0.70-1.30 [facility] Comment on above: Performed By: #### 2 5508, 34478, 38252, 53464, 37510 #### [facility] [address] [place] [address], [place] GFR/1.73 sq M.predicted among blacks MDRD (S/P/Bld) [Vol rate/Area] mL/min/{1.73_m2} Normal >60 [facility] Comment on above: Performed By: #### 2 5508, 81495, 06238, 80333, 66050 #### [facility] [address] [place] [address], [place] GFR/1.73 sq M.predicted among non-blacks MDRD (S/P/Bld) [Vol rate/Area] mL/min/{1.73_m2} Normal >60 [facility] Comment on above: Performed By: #### 2 5508, 70809, 70109, 86664, 66608 #### [facility] [address] [place] [address], [place] Glucose [Mass/Vol] 127 mg/dL High 70-100 [facility] Comment on above: Performed By: #### 2 5508, 92742, 04217, 71261, 57257 #### [facility] [address] [place] [address], [place] Potassium [Moles/Vol] 3.9 mmol/L Normal 3.5-5.1 [facility] Comment on above: Performed By: #### 2 5508, 41168, 23739, 49325, 13581 #### [facility] [address] [place] [address], [place] Sodium [Moles/Vol] 136 mmol/L Normal 136-145 [facility] Comment on above: Performed By: #### 2 5508, 55121, 27741, 24220, 20561 #### [facility] [address] [place] [address], [place] Urea nitrogen [Mass/Vol] 10 mg/dL Normal 7-25 [facility] Comment on above: Performed By: #### 2 5508, 35554, 90395, 32597, 95268 #### [facility] [address] [place] [address], [facility] ktx cbc complete blood count on 12-04-2020 Erythrocyte distribution width (RBC) [Ratio] 14.6 % Normal 11.5-15.0 [facility] Comment on above: Performed By: #### 6 1405 #### [facility] [address] [place] [place] [address], [facility] Hematocrit (Bld) [Volume fraction] 38.7 % Low 39.0-50.0 [facility] Comment on above: Performed By: #### 6 1405 #### [facility] [address] [place] [place] [address], [facility] Hemoglobin (Bld) [Mass/Vol] 12.8 g/dL Low 13.0-17.0 [facility] Comment on above: Performed By: #### 6 1405 #### [facility] [address] [place] [place] [address], [facility] MCH (RBC) [Entitic mass] 31.3 pg Normal 27.0-33.0 [facility] Comment on above: Performed By: #### 6 1405 #### [facility] [address] [place] [address], [facility] MCHC (RBC) [Mass/Vol] 33.1 g/dL Normal 32.0-35.0 [facility] Comment on above: Performed By: #### 6 1405 #### [facility] [address] [place] [address], [facility] MCV (RBC) [Entitic vol] 94.6 fL Normal 82.0-98.0 [facility] Comment on above: Performed By: #### 6 1405 #### [facility] [address] [place] [address], [facility] Nucleated RBC/100 WBC (Bld) [Ratio] 0 % Normal 0-0 [facility] Comment on above: Performed By: #### 6 1405 #### [facility] [address] [facility] [place] [address], [facility] PLAT CNT 224 10*3/uL Normal 150-400 [facility] Comment on above: Performed By: #### 6 1405 #### [facility] [address] [facility] [place] [address], [facility] RBC (Bld) [#/Vol] 4.09 10*6/uL Low 4.20-5.70 [facility] Comment on above: Performed By: #### 6 1405 #### [facility] [address] [facility] [place] [address], [facility] WBC (Bld) [#/Vol] 12.30 10*3/uL High 4.00-10.60 [facility] Comment on above: Performed By: #### 6 1405 #### [facility] [address] [place] [place] [address], [facility] ktx magnesium bloodon 2020 Magnesium [Mass/Vol] 1.6 mg/dL Low 1.9-2.7 [facility] Comment on above: Performed By: #### 2 5508, 60767, 06324, 63753, 87619 #### [facility] [address] [facility] [place] [address], [facility] ktx phosphoruson 12-04-2020 Phosphate [Mass/Vol] 2.4 mg/dL Low 2.5-5.0 [facility] Comment on above: Performed By: #### 2 5508, 46585, 77097, 83935, 94931 #### [facility] [address] [place] [place] [address], [facility] TACROLIMUSon 12-03-2020 Tacrolimus (Bld) [Mass/Vol] 9.1 ng/mL Normal 5.0-20.0 [facility] Comment on above: Order Comment: Yes: Add to Previous draw if able Result Comment: [employer] Tacrolimus assay is a delayed one-step immunoassay for the quantitative determination of tacrolimus in human whole blood using the chemiluminescent microparticle immunoassay (CMIA) technology with flexible assay protocols, referred to as Chemiflex. Performed By: #### 2 5508, 75760, 19769, 18949, 72716 #### [facility] [address] [place] [id number], [place] ktx basic metabolic panelon 12-03-2020 Calcium [Mass/Vol] 9.5 mg/dL Normal 8.6-10.3 [facility] Comment on above: Performed By: #### 2 5508, 82860, 88497, 99641, 21326 #### [facility] [address] [place] [address], [place] Chloride [Moles/Vol] 102 mmol/L Normal 98-107 [facility] Comment on above: Performed By: #### 2 5508, 66360, 21860, 04607, 30068 #### [facility] [address] [place] [address], [place] CO2 [Moles/Vol] 22 mmol/L Normal 21-31 [facility] Comment on above: Performed By: #### 2 5508, 68341, 94244, 53359, 43749 #### [facility] [address] [place] [address], [place] Creatinine [Mass/Vol] 0.88 mg/dL Normal 0.70-1.30 [facility] Comment on above: Performed By: #### 2 5508, 12344, 54454, 38540, 73125 #### [facility] [address] [place] [address], [place] GFR/1.73 sq M.predicted among blacks MDRD (S/P/Bld) [Vol rate/Area] mL/min/{1.73_m2} Normal >60 [facility] Comment on above: Performed By: #### 2 5508, 17174, 42985, 61825, 33322 #### [facility] [address] [place] [address], [place] GFR/1.73 sq M.predicted among non-blacks MDRD (S/P/Bld) [Vol rate/Area] mL/min/{1.73_m2} Normal >60 [facility] Comment on above: Performed By: #### 2 5508, 89974, 80195, 34237, 78687 #### [facility] [address] [place] [address], [place] Glucose [Mass/Vol] 120 mg/dL High 70-100 [facility] Comment on above: Performed By: #### 2 5508, 55424, 13909, 23828, 34193 #### [facility] [address] [place] [address], [place] Potassium [Moles/Vol] 3.8 mmol/L Normal 3.5-5.1 [facility] Comment on above: Performed By: #### 2 5508, 72946, 04445, 19201, 07594 #### [facility] [address] [place] [address], [place] Sodium [Moles/Vol] 134 mmol/L Low 136-145 [facility] Comment on above: Performed By: #### 2 5508, 03402, 13766, 78455, 17619 #### [facility] [address] [place] [address], [place] Urea nitrogen [Mass/Vol] 9 mg/dL Normal 7-25 [facility] Comment on above: Performed By: #### 2 5508, 79914, 80584, 59486, 67553 #### [facility] [address] [place] [address], [place] ktx cbc complete blood count on 12-03-2020 Erythrocyte distribution width (RBC) [Ratio] 14.6 % Normal 11.5-15.0 [facility] Comment on above: Performed By: #### 6 1405 #### [facility] [address] [place] [address], [place] Hematocrit (Bld) [Volume fraction] 40.4 % Normal 39.0-50.0 [facility] Comment on above: Performed By: #### 6 1405 #### [facility] [address] [facility] [place] [address], [facility] Hemoglobin (Bld) [Mass/Vol] 13.6 g/dL Normal 13.0-17.0 [facility] Comment on above: Performed By: #### 6 1405 #### [facility] [address] [facility]. [address] MCH (RBC) [Entitic mass] 31.1 pg Normal 27.0-33.0 [facility] Comment on above: Performed By: #### 6 1405 #### [facility] [address] [facility] MCHC (RBC) [Mass/Vol] 33.7 g/dL Normal 32.0-35.0 [facility] Comment on above: Performed By: #### 6 1405 #### [facility] [address] [place] [place] [address], [facility] MCV (RBC) [Entitic vol] 92.4 fL Normal 82.0-98.0 [facility] Comment on above: Performed By: #### 6 1405 #### [facility] [address] [facility]. [address] Nucleated RBC/100 WBC (Bld) [Ratio] 0 % Normal 0-0 [facility] Comment on above: Performed By: #### 6 1405 #### [facility] [address] [facility] [place] [address], [facility] PLAT CNT 240 10*3/uL Normal 150-400 [facility] Comment on above: Performed By: #### 6 1405 #### [facility] [address] [place] [address], [facility] RBC (Bld) [#/Vol] 4.37 10*6/uL Normal 4.20-5.70 [facility] Comment on above: Performed By: #### 6 1405 #### [facility] [address] [place] [address], [facility] WBC (Bld) [#/Vol] 12.42 10*3/uL High 4.00-10.60 [facility] Comment on above: Performed By: #### 6 1405 #### [facility] [address] [place] [address], [facility] ktx magnesium bloodon 2020 Magnesium [Mass/Vol] 2.1 mg/dL Normal 1.9-2.7 [facility] Comment on above: Performed By: #### 2 5508, 90761, 15502, 57703, 12568 #### [facility] [address] [place] [address], [facility] ktx phosphoruson 12-03-2020 Phosphate [Mass/Vol] 3.3 mg/dL Normal 2.5-5.0 [facility] Comment on above: Performed By: #### 2 5508, 62120, 96473, 64486, 05099 #### [facility] [address] [place] [address], [facility] BASIC METABOLIC PANELon 11-15 Calcium [Mass/Vol] 10.1 mg/dL Normal 8.6-10.3 [facility] Comment on above: Order Comment: No: D o not add to previous draw Performed By: #### 2 5508, 46758, 32698, 18800, 31939 #### [facility] [address] [place] [address], [facility] Chloride [Moles/Vol] 97 mmol/L Low 98-107 [facility] Comment on above: Order Comment: No: D o not add to previous draw Performed By: #### 2 5508, 77715, 32965, 60765, 26217 #### [facility] [address] [place] [address], [place] CO2 [Moles/Vol] 27 mmol/L Normal 21-31 [facility] Comment on above: Order Comment: No: D o not add to previous draw Performed By: #### 2 5508, 24922, 84021, 08627, 08480 #### [facility] [address] [place] [address], [place] Creatinine [Mass/Vol] 1.12 mg/dL Normal 0.70-1.30 [facility] Comment on above: Order Comment: No: D o not add to previous draw Performed By: #### 2 5508, 63727, 03563, 32323, 29714 #### [facility] [address] [place] [address], [place] GFR/1.73 sq M.predicted among blacks MDRD (S/P/Bld) [Vol rate/Area] mL/min/{1.73_m2} Normal >60 [facility] Comment on above: Order Comment: No: D o not add to previous draw Performed By: #### 2 5508, 40573, 60857, 25346, 90689 #### [facility] [address] [place] [address], [place] GFR/1.73 sq M.predicted among non-blacks MDRD (S/P/Bld) [Vol rate/Area] mL/min/{1.73_m2} Normal >60 [facility] Comment on above: Order Comment: No: D o not add to previous draw Performed By: #### 2 5508, 89405, 35912, 67979, 52573 #### [facility] [address] [place] [address], [place] Glucose [Mass/Vol] 124 mg/dL High 70-100 [facility] Comment on above: Order Comment: No: D o not add to previous draw Performed By: #### 2 5508, 61709, 51908, 09684, 45496 #### [facility] [address] [place] [address], [place] Potassium [Moles/Vol] 4.4 mmol/L Normal 3.5-5.1 [facility] Comment on above: Order Comment: No: D o not add to previous draw Performed By: #### 2 5508, 28145, 98204, 63505, 18189 #### [facility] [address] [place] [address], [facility] Sodium [Moles/Vol] 133 mmol/L Low 136-145 [facility] Comment on above: Order Comment: No: D o not add to previous draw Performed By: #### 2 5508, 50108, 07760, 32979, 91626 #### [facility] [address] [place] [address], [facility] Urea nitrogen [Mass/Vol] 17 mg/dL Normal 7-25 [facility] Comment on above: Order Comment: No: D o not add to previous draw Performed By: #### 2 5508, 83457, 94203, 89326, 35228 #### [facility] [address] [place] [address], [facility] CBC COMPLETE BLOOD COUNTon - Erythrocyte distribution width (RBC) [Ratio] 14.7 % Normal 11.5-15.0 [facility] Comment on above: Order Comment: No: D o not add to previous draw Performed By: #### 6 1405 #### [facility] [address] [place] [id number], [facility] Hematocrit (Bld) [Volume fraction] 43.7 % Normal 39.0-50.0 [facility] Comment on above: Order Comment: No: D o not add to previous draw Performed By: #### 6 1405 #### [facility] [address] [place] [id number], [facility] Hemoglobin (Bld) [Mass/Vol] 14.1 g/dL Normal 13.0-17.0 [facility] Comment on above: Order Comment: No: D o not add to previous draw Performed By: #### 6 1405 #### [facility] [address] [facility] [place] [address], [facility] MCH (RBC) [Entitic mass] 30.8 pg Normal 27.0-33.0 [facility] Comment on above: Order Comment: No: D o not add to previous draw Performed By: #### 6 1405 #### [facility] [address] [place] [place] [address], [facility] MCHC (RBC) [Mass/Vol] 32.3 g/dL Normal 32.0-35.0 [facility] Comment on above: Order Comment: No: D o not add to previous draw Performed By: #### 6 1405 #### [facility] [address] [place] [place] [address], [facility] MCV (RBC) [Entitic vol] 95.4 fL Normal 82.0-98.0 [facility] Comment on above: Order Comment: No: D o not add to previous draw Performed By: #### 6 1405 #### [facility] [address] [facility]. [address] Nucleated RBC/100 WBC (Bld) [Ratio] 0 % Normal 0-0 [facility] Comment on above: Order Comment: No: D o not add to previous draw Performed By: #### 6 1405 #### [facility] [address] [place] [place] [address], [facility] PLAT CNT 257 10*3/uL Normal 150-400 [facility] Comment on above: Order Comment: No: D o not add to previous draw Performed By: #### 6 1405 #### [facility] [address] [place] [place] [address], [facility] RBC (Bld) [#/Vol] 4.58 10*6/uL Normal 4.20-5.70 [facility] Comment on above: Order Comment: No: D o not add to previous draw Performed By: #### 6 1405 #### [facility] [address] WBC (Bld) [#/Vol] 13.96 10*3/uL High 4.00-10.60 [facility] Comment on above: Order Comment: No: D o not add to previous draw Performed By: #### 6 1405 #### [facility] [address] MAGNESIUM BLOODon 12-02-2020 Magnesium [Mass/Vol] 1.5 mg/dL Low 1.9-2.7 [facility] Comment on above: Order Comment: No: D o not add to previous draw Performed By: #### 2 5508, 72505, 88316, 01173, 57032 #### [facility] [address] PHOSPHORUS BLOODon 1 Phosphate [Mass/Vol] 3.8 mg/dL Normal 2.5-5.0 [facility] Comment on above: Order Comment: No: D o not add to previous draw Performed By: #### 2 5508, 78820, 86761, 14980, 22130 #### [facility] [address] PROTHROMBIN TIMEon 1 INR Coag (PPP) [Relative time] 1.12 {INR} Normal 0.91-1.16 [facility] Comment on above: Order Comment: No: [...] CHEST 1995;[id number]. Performed By: #### 5 6101 ####[facility] PT Coag (PPP) [Time] 14.4 s Normal 12.3-14.8 [facility] Comment on above: Order Comment: No: D o not add to previous draw Result Comment: ALL RESULTS MUST BE INTERPRETED WITH RESPECT TO BLOOD DRAWING ARTIFACT OR DILUTION ERROR OF ANTICOAGULANT AT THE TIME OF SAMPLING. Performed By: #### 5 6101 ####[facility] CBC W/DIFFon 12-01-2020 ABS IMM GRANS 0.1 10*3/uL Normal 0.0-0.2 [facility] Comment on above: Performed By: #### 6 1405 #### [facility] [address] ABS NEUTROPHILS 12.0 10*3/uL High 1.6-7.6 [facility] Comment on above: Performed By: #### 6 1405 #### [facility] [address] [place] [address], [facility] Basophils (Bld) [#/Vol] 0.1 10*3/uL Normal 0.0-0.2 [facility] Comment on above: Performed By: #### 6 1405 #### [facility] [address] Basophils/100 WBC (Bld) 0.6 % Normal 0.0-1.0 [facility] Comment on above: Performed By: #### 6 1405 #### [facility] [address] [facility]. [address] Eosinophils (Bld) [#/Vol] 0.1 10*3/uL Normal 0.0-0.5 [facility] Comment on above: Performed By: #### 6 1405 #### [facility] [address] [facility]. [address] Eosinophils/100 WBC (Bld) 0.7 % Normal 0.0-6.0 [facility] Comment on above: Performed By: #### 6 1405 #### [facility] [address] Erythrocyte distribution width (RBC) [Ratio] 14.7 % Normal 11.5-15.0 [facility] Comment on above: Performed By: #### 6 1405 #### [facility] [address] Hematocrit (Bld) [Volume fraction] 47.3 % Normal 39.0-50.0 [facility] Comment on above: Performed By: #### 6 1405 #### [facility] [address] Hemoglobin (Bld) [Mass/Vol] 15.5 g/dL Normal 13.0-17.0 [facility] Comment on above: Performed By: #### 6 1405 #### [facility] [address] [facility]. [address] IMMATURE GRANS 0.7 % Normal 0.0-1.0 [facility] Comment on above: Performed By: #### 6 1405 #### [facility] [address] [place] [address], [facility] Lymphocytes (Bld) [#/Vol] 0.6 10*3/uL Low 1.2-4.0 [facility] Comment on above: Performed By: #### 6 1405 #### [facility] [facility] [address] [facility] [place] [address], [facility] Lymphocytes/100 WBC (Bld) 4.3 % Low 20.0-45.0 [facility] Comment on above: Performed By: #### 6 1405 #### [facility] [address] [facility] [place] [address], [facility] MCH (RBC) [Entitic mass] 31.0 pg Normal 27.0-33.0 [facility] Comment on above: Performed By: #### 6 1405 #### [facility] [address] [place] [place] [address], [facility] MCHC (RBC) [Mass/Vol] 32.8 g/dL Normal 32.0-35.0 [facility] Comment on above: Performed By: #### 6 1405 #### [facility] [address] [place] [place] [address], [facility] MCV (RBC) [Entitic vol] 94.6 fL Normal 82.0-98.0 [facility] Comment on above: Performed By: #### 6 1405 #### [facility] [address] [place] [place] [address], [facility] Monocytes (Bld) [#/Vol] 1.0 10*3/uL Normal 0.1-1.0 [facility] Comment on above: Performed By: #### 6 1405 #### [facility] [address] [place] [place] [address], [facility] MONOS 7.3 % Normal 5.0-12.0 [facility] Comment on above: Performed By: #### 6 1405 #### [facility] [address] [place] [place] [address], [facility] Neutrophils/100 WBC (Bld) 86.4 % High 40.0-72.0 [facility] Comment on above: Performed By: #### 6 1405 #### [facility] [address] [facility] [address] Nucleated RBC/100 WBC (Bld) [Ratio] 0 % Normal 0-0 [facility] Comment on above: Performed By: #### 6 1405 #### [facility] [address] [place] [place] [address], [facility] PLAT CNT 289 10*3/uL Normal 150-400 [facility] Comment on above: Performed By: #### 6 1405 #### [facility] [address] [place] [place] [address], [facility] RBC (Bld) [#/Vol] 5.00 10*6/uL Normal 4.20-5.70 [facility] Comment on above: Performed By: #### 6 1405 #### [facility] [address] [place] [place] [address], [facility] WBC (Bld) [#/Vol] 13.82 10*3/uL High 4.00-10.60 [facility] Comment on above: Performed By: #### 6 1405 #### [facility] [address] [facility]. [address] COMP METABOLIC PANELon 12-01 Albumin [Mass/Vol] 4.7 g/dL Normal 3.5-5.7 [facility] Comment on above: Performed By: #### 2 5508, 34709, 76036, 02884, 05263 #### [facility] [address] [facility]. [address] ALKALINE PHOSPH 73 IU/L Normal 34-104 [facility] Comment on above: Performed By: #### 2 5508, 54055, 53154, 22444, 21192 #### [facility] [address] [place] [place] [address], [facility] ALT [Catalytic activity/Vol] 27 U/L Normal 7-52 [facility] Comment on above: Performed By: #### 2 5508, 48904, 38001, 74802, 89913 #### [facility] [address] [place] [address], [place] AST [Catalytic activity/Vol] 21 U/L Normal 13-39 [facility] Comment on above: Performed By: #### 2 5508, 79804, 27294, 22935, 33854 #### [facility] [address] [place] [address], [place] Bilirubin [Mass/Vol] 0.6 mg/dL Normal 0.3-1.0 [facility] Comment on above: Performed By: #### 2 5508, 33175, 12015, 85690, 78104 #### [facility] [address] [place] [address], [place] Calcium [Mass/Vol] 9.9 mg/dL Normal 8.6-10.3 [facility] Comment on above: Performed By: #### 2 5508, 20874, 39704, 16540, 66677 #### [facility] [address] [place] [address], [place] Chloride [Moles/Vol] 104 mmol/L Normal 98-107 [facility] Comment on above: Performed By: #### 2 5508, 16861, 22511, 64909, 44686 #### [facility] [address] [place] [address], [place] CO2 [Moles/Vol] 25 mmol/L Normal 21-31 [facility] Comment on above: Performed By: #### 2 5508, 37144, 25023, 25405, 38032 #### [facility] [address] [place] [address], [place] Creatinine [Mass/Vol] 1.40 mg/dL High 0.70-1.30 [facility] Comment on above: Performed By: #### 2 5508, 96135, 02529, 79342, 76242 #### [facility] [address] [place] [address], [place] eGFR- non- 52 ml/min/1.73sq m Abnormal >60 [facility] Comment on above: Performed By: #### 2 5508, 66335, 48064, 24731, 38854 #### [facility] [address] [place] [address], [place] GFR/1.73 sq M.predicted among blacks MDRD (S/P/Bld) [Vol rate/Area] mL/min/{1.73_m2} Normal >60 [facility] Comment on above: Performed By: #### 2 5508, 57421, 34518, 69379, 48626 #### [facility] [address] [place] [address], [place] Glucose [Mass/Vol] 133 mg/dL High 70-100 [facility] Comment on above: Performed By: #### 2 5508, 89743, 24139, 93188, 03969 #### [facility] [address] [place] [address], [place] Potassium [Moles/Vol] 4.8 mmol/L Normal 3.5-5.1 [facility] Comment on above: Performed By: #### 2 5508, 73450, 06967, 00026, 30002 #### [facility] [address] [place] [address], [place] Protein [Mass/Vol] 7.1 g/dL Normal 6.0-8.3 [facility] Comment on above: Performed By: #### 2 5508, 76558, 02028, 32809, 25485 #### [facility] [address] [place] [address], [place] Sodium [Moles/Vol] 137 mmol/L Normal 136-145 [facility] Comment on above: Performed By: #### 2 5508, 05499, 89570, 78031, 23515 #### [facility] [address] [place] [address], [place] Urea nitrogen [Mass/Vol] 19 mg/dL Normal 7-25 [facility] Comment on above: Performed By: #### 2 5508, 71261, 14102, 53137, 54458 #### [address] [address], [facility] CT ABDOMEN AND PELVIS WO CON TRASTon 12-01-2020 CT ABDOMEN AND PELVIS WO CONTRAST [facility] Department of Radiology [address] [place] [id number] Patient Name: VISHAL DUKE : 1960 Sex: M Age: Race: White Pt. Location: [facility] Patient Status: E Ordered Date: 12/01/2020 9:30:00 [...] Otherwise no change in appearance of the [place] kidneys. No evidence of cyst rupture. [...] achievable. Electronically signed: José Herman. Transcribed by: [email or web address], User Resident: Electronically Signed by: JOSÉ HERMAN @ 12/01/2020 11:45 AM Normal [facility] Comment on above: Order Comment: No: D o not add to previous draw CV'D BY IMM LAB AT 1240 LIPASE BLOODon 12-01-2020 LIPASE 40 Units/L Normal 11-82 [facility] Comment on above: Performed By: #### 2 5508, 47399, 10187, 56062, 40256 #### [facility] [address] [place] [address], [facility] URINALYSIS REFLEXon 12-02-19 21 Appearance (U) SL CLOUDY Abnormal CLEAR [facility] Comment on above: Order Comment: Yes: Add to Previous draw if able Performed By: #### 2 5508, 25648, 65869, 82206, 84027 #### [facility] [address] [place] [address], [place] Bilirubin Ql (U) Negative Normal NEGATIVE [facility] Comment on above: Order Comment: Yes: Add to Previous draw if able Performed By: #### 2 5508, 49830, 72003, 26165, 63394 #### [facility] [address] [place] [address], [facility] Color (U) TINO Abnormal YELLOW [facility] Comment on above: Order Comment: Yes: Add to Previous draw if able Performed By: #### 2 5508, 37655, 76770, 02993, 99456 #### [facility] [address] [facility] [place] [place] [address], [facility] EPIS NONE SEEN Normal FEW,OCC,NO NE SEEN [facility] Comment on above: Order Comment: Yes: Add to Previous draw if able Performed By: #### 2 5508, 54281, 03312, 56947, 80386 #### [facility] [address] [place] [address], [place] Glucose Ql (U) Negative Normal NEGATIVE [facility] Comment on above: Order Comment: Yes: Add to Previous draw if able Performed By: #### 2 5508, 81034, 06805, 17495, 69930 #### [facility] [address] [place] [address], [place] Hemoglobin Ql (U) Negative Normal NEGATIVE [facility] Comment on above: Order Comment: Yes: Add to Previous draw if able Performed By: #### 2 5508, 46504, 86482, 07078, 01598 #### [facility] [address] [place] [address], [facility] KETONE Negative Normal NEGATIVE [facility] Comment on above: Order Comment: Yes: Add to Previous draw if able Performed By: #### 2 5508, 55822, 30351, 05163, 23618 #### [facility] [address] [place] [address], [facility] LEUK MARIA A Negative Normal NEGATIVE [facility] Comment on above: Order Comment: Yes: Add to Previous draw if able Performed By: #### 2 5508, 56595, 92275, 57934, 94967 #### [facility] [address] [facility] [place] [address], [facility] MUCUS THREADS MOD Abnormal NONE SEEN [facility] Comment on above: Order Comment: Yes: Add to Previous draw if able Performed By: #### 2 5508, 69592, 81976, 03343, 81671 #### [facility] [address] [facility] [place] [address], [facility] Nitrite Ql (U) Negative Normal NEGATIVE [facility] Comment on above: Order Comment: Yes: Add to Previous draw if able Performed By: #### 2 5508, 47497, 29548, 89491, 61612 #### [facility] [address] [facility]. [address] pH (U) 5.0 [pH] Normal 5.0-8.0 [facility] Comment on above: Order Comment: Yes: Add to Previous draw if able Performed By: #### 2 5508, 69260, 66542, 35471, 27605 #### [facility] [address] [place] [address], [facility] Protein Ql (U) 30 mg/dL Abnormal NEGATIVE [facility] Comment on above: Order Comment: Yes: Add to Previous draw if able Performed By: #### 2 5508, 67073, 49195, 43408, 99348 #### [facility] [address] [place] [address], [facility] RBC 0-2 Abnormal NONE SEEN [facility] Comment on above: Order Comment: Yes: Add to Previous draw if able Performed By: #### 2 5508, 85290, 63576, 58917, 87826 #### [facility] [address] [place] [address], [facility] SPEC GRAV 1.026 High 1.015-1.02 0 [facility] Comment on above: Order Comment: Yes: Add to Previous draw if able Performed By: #### 2 5508, 86146, 62855, 04122, 69784 #### [facility] [address] [place] [address], [facility] WBC UA 0-2 Abnormal NONE SEEN [facility] Comment on above: Order Comment: Yes: Add to Previous draw if able Performed By: #### 2 5508, 11932, 68514, 25076, 19008 #### [facility] [address] Pulmonary Functionon 08-15-2 021 Pulmonary Function MR #: [id number] [facility] PT. Name: Vishal Duke Date: 11/27/2020 [...] Syed MD Date Trans: 11/29/2020 01:09 P/ [id number] cc: Rosa M Gonzales M.D. [facility] [address] Normal [facility] ARTERIAL BLOOD GAS W/COOXon 11-27-2020 BASE EXCESS 3 mmol/L Normal -2-3 [facility] Comment on above: Performed By: #### 2 5508, 10559, 19748, 83183, 39728 #### [facility] [address] [place] [address], [facility] COHB 1.5 % Normal 0.0-1.5 [facility] Comment on above: Performed By: #### 2 5508, 62707, 84482, 17391, 82981 #### [facility] [address] [place] [address], [facility] DELIVERY SYSTEMS ROOM AIR Normal [facility] Comment on above: Performed By: #### 2 5508, 91946, 90751, 12238, 26701 #### [facility] [address] [place] [address], [facility] FIO2 0 % Normal [facility] Comment on above: Performed By: #### 2 5508, 72449, 73598, 08814, 96911 #### [facility] [address] [place] [address], [place] HCO3 (Bld) [Moles/Vol] 26 mmol/L Normal 21-28 [facility] Comment on above: Performed By: #### 2 5508, 85010, 69459, 25068, 86671 #### [facility] [address] [place] [address], [place] METHB 1.2 % Normal 0.0-1.5 [facility] Comment on above: Performed By: #### 2 5508, 07488, 14861, 46692, 99211 #### [facility] [address] [place] [address], [place] Oxygen (Bld) [Partial pressure] 93 mm[Hg] Normal 83-108 [facility] Comment on above: Performed By: #### 2 5508, 81809, 21597, 63621, 92985 #### [facility] [address] [place] [address], [place] Oxygen saturation in Blood 95.6 % Normal 94.0-97.0 [facility] Comment on above: Performed By: #### 2 5508, 85705, 10566, 45294, 26422 #### [facility] [address] [place] [address], [place] PCO2 35 mmHg Normal 35-45 [facility] Comment on above: Performed By: #### 2 5508, 17987, 37582, 43491, 96492 #### [facility] [address] [place] [address], [place] pH (Bld) 7.48 [pH] High 7.35-7.45 [facility] Comment on above: Performed By: #### 2 5508, 48831, 13928, 96821, 80672 #### [facility] [address] [place] [address], [facility] THB 15.4 g/dL Normal 12.0-16.3 [facility] Comment on above: Performed By: #### 2 5508, 38284, 78309, 95853, 24749 #### [facility] [address] [place] [address], [facility] CREATININE BLOODon Creatinine [Mass/Vol] 1.10 mg/dL Normal 0.70-1.30 [facility] Comment on above: Order Comment: No: D o not add to previous draw Performed By: #### 2 5508, 33962, 12577, 69657, 01716 #### [facility] [address] [place] [address], [facility] GFR/1.73 sq M.predicted among blacks MDRD (S/P/Bld) [Vol rate/Area] mL/min/{1.73_m2} Normal >60 [facility] Comment on above: Order Comment: No: D o not add to previous draw Performed By: #### 2 5508, 88636, 63196, 97655, 01414 #### [facility] [address] [place] [address], [facility] GFR/1.73 sq M.predicted among non-blacks MDRD (S/P/Bld) [Vol rate/Area] mL/min/{1.73_m2} Normal >60 [facility] Comment on above: Order Comment: No: D o not add to previous draw Performed By: #### 2 5508, 31733, 67308, 59745, 97715 #### [facility] [address] [place] [address], [facility] Cardiovascular Lab Reporton 10-29-2020 Cardiovascular Lab Report [facility] V[facility] Med[facility] MR #: [id number] Department of Physician: Domo Mejia M.D. Division of Service Date: 10/29/2020 Cardiology Birthdate: 1960 Adult Cardiovascular Room #: 3AB [id number] [facility] [address] [place] [address] Cardiovascular Laboratory Report FINAL IMPRESSIONS: 1. 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 6. Will consider elective revascularization of the right coronary artery should the patient continue to experience significant exertional angina; this will be a high risk procedure given tortuosity, calcification and ectasia. 7. Follow up with Dr. Chester in the [place] office in the next 1 to 2 [...] artery, failed attempt at deployment of a 6-[place] MynxGrip closure device. METHODS: After risks, benefits, and alternatives were explained, written informed consent was obtained. The patient was prepped and draped in usual sterile fashion over both groins. Using 1% lidocaine solution, local infiltration anesthesia was achieved. Using a micropuncture kit access to the right common femoral artery was obtained. A 6-[place] x 11 cm sheath was inserted without difficulty. Baseline femoral angiography was performed. Bilateral selective coronary angiography was performed using JL4 and JR4 catheters. Angiography of internal mammary artery graft was performed using a 6-[place]ine[place] IM catheter. Limited angiography of the left subclavian was performed after retracting the catheter into the artery. After reviewing the images, it was elected to proceed with an interventional procedure. A 6-[place] XB3.5 guide catheter was advanced over J-wire [...] pressure to achieve optimal hemostasis once a 6-[place] MynxGrip closure device failed to deploy. Overall, [...] (more content not included)... Normal [facility] BASIC METABOLIC PANELon 05-0 -2020 Calcium [Mass/Vol] 8.1 mg/dL Low 8.6-10.3 [facility] Comment on above: Order Comment: Yes: Add to Previous draw if able Performed By: #### 2 5508, 12685, 93196, 91264, 18983 #### [facility] [address] [place] [address], [place] Chloride [Moles/Vol] 103 mmol/L Normal 98-107 [facility] Comment on above: Order Comment: Yes: Add to Previous draw if able Performed By: #### 2 5508, 50574, 70996, 08539, 27406 #### [facility] [address] [place] [address], [place] CO2 [Moles/Vol] 25 mmol/L Normal 21-31 [facility] Comment on above: Order Comment: Yes: Add to Previous draw if able Performed By: #### 2 5508, 78421, 93107, 75376, 74854 #### [facility] [address] [place] [address], [place] Creatinine [Mass/Vol] 0.88 mg/dL Normal 0.70-1.30 [facility] Comment on above: Order Comment: Yes: Add to Previous draw if able Performed By: #### 2 5508, 56833, 00029, 05030, 77477 #### [facility] [address] [place] [address], [place] GFR/1.73 sq M.predicted among blacks MDRD (S/P/Bld) [Vol rate/Area] mL/min/{1.73_m2} Normal >60 [facility] Comment on above: Order Comment: Yes: Add to Previous draw if able Performed By: #### 2 5508, 32821, 19798, 71685, 55689 #### [facility] [address] [place] [address], [place] GFR/1.73 sq M.predicted among non-blacks MDRD (S/P/Bld) [Vol rate/Area] mL/min/{1.73_m2} Normal >60 [facility] Comment on above: Order Comment: Yes: Add to Previous draw if able Performed By: #### 2 5508, 69079, 47986, 71422, 73766 #### [facility] [address] [place] [address], [place] Glucose [Mass/Vol] 119 mg/dL High 70-100 [facility] Comment on above: Order Comment: Yes: Add to Previous draw if able Performed By: #### 2 5508, 47550, 57460, 74808, 03342 #### [facility] [address] [place] [address], [place] Potassium [Moles/Vol] 3.6 mmol/L Normal 3.5-5.1 [facility] Comment on above: Order Comment: Yes: Add to Previous draw if able Performed By: #### 2 5508, 96678, 54440, 20589, 87395 #### [facility] [address] [place] [address], [place] Sodium [Moles/Vol] 133 mmol/L Low 136-145 [facility] Comment on above: Order Comment: Yes: Add to Previous draw if able Performed By: #### 2 5508, 04430, 02781, 03577, 95185 #### [facility] [address] [place] [address], [place] Urea nitrogen [Mass/Vol] 17 mg/dL Normal 7-25 [facility] Comment on above: Order Comment: Yes: Add to Previous draw if able Performed By: #### 2 5508, 70505, 75135, 04791, 43776 #### [facility] [address] [place] [address], [place] CBC COMPLETE BLOOD COUNTon 0 - Erythrocyte distribution width (RBC) [Ratio] 13.3 % Normal 11.5-15.0 [facility] Comment on above: Order Comment: No: D o not add to previous draw Performed By: #### 6 1405 #### [facility] [address] [place] [address], [place] Hematocrit (Bld) [Volume fraction] 47.6 % Normal 39.0-50.0 [facility] Comment on above: Order Comment: No: D o not add to previous draw Performed By: #### 6 1405 #### [facility] [address] [place] [address], [facility] Hemoglobin (Bld) [Mass/Vol] 15.9 g/dL Normal 13.0-17.0 [facility] Comment on above: Order Comment: No: D o not add to previous draw Performed By: #### 6 1405 #### [facility] [address] [place] [address], [facility] MCH (RBC) [Entitic mass] 29.1 pg Normal 27.0-33.0 [facility] Comment on above: Order Comment: No: D o not add to previous draw Performed By: #### 6 1405 #### [facility] [address] MCHC (RBC) [Mass/Vol] 33.4 g/dL Normal 32.0-35.0 [facility] Comment on above: Order Comment: No: D o not add to previous draw Performed By: #### 6 1405 #### [facility] [address] [place] [address], [facility] MCV (RBC) [Entitic vol] 87.2 fL Normal 82.0-98.0 [facility] Comment on above: Order Comment: No: D o not add to previous draw Performed By: #### 6 1405 #### [facility] [address] [place] [address], [facility] Nucleated RBC/100 WBC (Bld) [Ratio] 0 % Normal 0-0 [facility] Comment on above: Order Comment: No: D o not add to previous draw Performed By: #### 6 1405 #### [facility] [address] [place] [address], [place] PLAT CNT 306 10*3/uL Normal 150-400 [facility] Comment on above: Order Comment: No: D o not add to previous draw Performed By: #### 6 1405 #### [address] RBC (Bld) [#/Vol] 5.46 10*6/uL Normal 4.20-5.70 [facility] Comment on above: Order Comment: No: D o not add to previous draw Performed By: #### 6 1405 #### [facility] [address] [place] [address], [facility] WBC (Bld) [#/Vol] 10.07 10*3/uL Normal 4.00-10.60 [facility] Comment on above: Order Comment: No: D o not add to previous draw Performed By: #### 6 1405 #### [address] PORTABLE CHEST 1 VIEWon PORTABLE CHEST 1 VIEW [facility] Department of Radiology [address] [place] [id number] Patient Name: VISHAL DUKE : 1960 Sex: M Age: Race: White Pt. Location: [id number] Patient Status: I Ordered Date: 08/19/2020 6:00:00 [...] right. Electronically signed: Dariela Vincent. Transcribed by: [email or web address], User Resident: Electronically Signed by: DARIELA VINCENT @ 08/19/2020 10:20 AM Normal [facility] Comment on above: Order Comment: No: D o not add to previous draw CV'D BY [facility] AT 1240 TACROLIMUSon 08-19-2020 Tacrolimus (Bld) [Mass/Vol] 8.5 ng/mL Normal 5.0-20.0 [facility] Comment on above: Order Comment: No: D o not add to previous draw Result Comment: The [employer] Tacrolimus assay is a delayed one-step immunoassay for the quantitative determination of tacrolimus in human whole blood using the chemiluminescent microparticle immunoassay (CMIA) technology with flexible assay protocols, referred to as Chemiflex. Performed By: #### 2 5508, 87592, 59052, 14642, 43397 #### [facility] [address] [place] [address], [place] BASIC METABOLIC PANELon 05-0 Calcium [Mass/Vol] 8.8 mg/dL Normal 8.6-10.3 [facility] Comment on above: Order Comment: No: D o not add to previous draw Pt in bath room askme to come back Performed By: #### 3 1580 #### [facility] [address] [place] [address], [facility] Chloride [Moles/Vol] 100 mmol/L Normal 98-107 [facility] Comment on above: Order Comment: No: D o not add to previous draw Pt in bath room askme to come back Performed By: #### 3 5200 #### [facility] [address] [place] [address], [place] CO2 [Moles/Vol] 28 mmol/L Normal 21-31 [facility] Comment on above: Order Comment: No: D o not add to previous draw Pt in bath room askme to come back Performed By: #### 3 5200 #### [facility] [address] [place] [address], [facility] Creatinine [Mass/Vol] 0.87 mg/dL Normal 0.70-1.30 [facility] Comment on above: Order Comment: No: D o not add to previous draw Pt in bath room askme to come back Performed By: #### 3 5200 #### [facility] [address] [place] [address], [place] GFR/1.73 sq M.predicted among blacks MDRD (S/P/Bld) [Vol rate/Area] mL/min/{1.73_m2} Normal >60 [facility] Comment on above: Order Comment: No: D o not add to previous draw Pt in bath room askme to come back Performed By: #### 3 5200 #### [facility] [address] [place] [address], [place] GFR/1.73 sq M.predicted among non-blacks MDRD (S/P/Bld) [Vol rate/Area] mL/min/{1.73_m2} Normal >60 [facility] Comment on above: Order Comment: No: D o not add to previous draw Pt in bath room askme to come back Performed By: #### 3 5200 #### [facility] [address] [place] [address], [place] Glucose [Mass/Vol] 110 mg/dL High 70-100 [facility] Comment on above: Order Comment: No: D o not add to previous draw Pt in bath room askme to come back Performed By: #### 3 5200 #### [facility] [address] [place] [address], [facility] Potassium [Moles/Vol] 3.7 mmol/L Normal 3.5-5.1 [facility] Comment on above: Order Comment: No: D o not add to previous draw Pt in bath room askme to come back Performed By: #### 3 5200 #### [facility] [address] [facility] [address] Sodium [Moles/Vol] 137 mmol/L Normal 136-145 [facility] Comment on above: Order Comment: No: D o not add to previous draw Pt in bath room askme to come back Performed By: #### 3 5200 #### [facility] [address] [facility]. [address] Urea nitrogen [Mass/Vol] 18 mg/dL Normal 7-25 [facility] Comment on above: Order Comment: No: D o not add to previous draw Pt in bath room askme to come back Performed By: #### 3 5200 #### [facility] [address] [facility] [address] TACROLIMUSon 08-17-2020 Tacrolimus (Bld) [Mass/Vol] 4.0 ng/mL Low 5.0-20.0 [facility] Comment on above: Order Comment: Unkno wn Result Comment: The [employer] Tacrolimus assay is a delayed one-step immunoassay for the quantitative determination of tacrolimus in human whole blood using the chemiluminescent microparticle immunoassay (CMIA) technology with flexible assay protocols, referred to as Chemiflex. Performed By: #### 2 5508, 60666, 93094, 30279, 51856 #### [facility] [address] [facility] BASIC METABOLIC PANELon 050 Calcium [Mass/Vol] 8.3 mg/dL Low 8.6-10.3 [facility] Comment on above: Order Comment: Yes: Add to Previous draw if able Performed By: #### 2 5508, 85052, 48776, 15107, 65269 #### [facility] [address] [place] [address], [place] Chloride [Moles/Vol] 104 mmol/L Normal 98-107 [facility] Comment on above: Order Comment: Yes: Add to Previous draw if able Performed By: #### 2 5508, 72124, 92494, 26144, 97301 #### [facility] [address] [place] [address], [place] CO2 [Moles/Vol] 24 mmol/L Normal 21-31 [facility] Comment on above: Order Comment: Yes: Add to Previous draw if able Performed By: #### 2 5508, 11981, 80054, 99874, 98305 #### [facility] [address] [place] [address], [place] Creatinine [Mass/Vol] 0.82 mg/dL Normal 0.70-1.30 [facility] Comment on above: Order Comment: Yes: Add to Previous draw if able Performed By: #### 2 5508, 76650, 44483, 17043, 76628 #### [facility] [address] [place] [address], [place] GFR/1.73 sq M.predicted among blacks MDRD (S/P/Bld) [Vol rate/Area] mL/min/{1.73_m2} Normal >60 [facility] Comment on above: Order Comment: Yes: Add to Previous draw if able Performed By: #### 2 5508, 78062, 12672, 40337, 34521 #### [facility] [address] [place] [address], [place] GFR/1.73 sq M.predicted among non-blacks MDRD (S/P/Bld) [Vol rate/Area] mL/min/{1.73_m2} Normal >60 [facility] Comment on above: Order Comment: Yes: Add to Previous draw if able Performed By: #### 2 5508, 75671, 17552, 99017, 37050 #### [facility] [address] [place] [address], [place] Glucose [Mass/Vol] 114 mg/dL High 70-100 [facility] Comment on above: Order Comment: Yes: Add to Previous draw if able Performed By: #### 2 5508, 49571, 17184, 95988, 19839 #### [facility] [address] [place] [address], [place] Potassium [Moles/Vol] 4.1 mmol/L Normal 3.5-5.1 [facility] Comment on above: Order Comment: Yes: Add to Previous draw if able Performed By: #### 2 5508, 63488, 32474, 22425, 41269 #### [facility] [address] [place] [address], [place] Sodium [Moles/Vol] 135 mmol/L Low 136-145 [facility] Comment on above: Order Comment: Yes: Add to Previous draw if able Performed By: #### 2 5508, 35914, 45735, 17524, 37969 #### [facility] [address] [place] [address], [place] Urea nitrogen [Mass/Vol] 24 mg/dL Normal 7-25 [facility] Comment on above: Order Comment: Yes: Add to Previous draw if able Performed By: #### 2 5508, 61984, 37603, 15088, 33001 #### [facility] [address] [place] [address], [place] MAGNESIUM BLOODon 08-16-2020 Magnesium [Mass/Vol] 1.9 mg/dL Normal 1.9-2.7 [facility] Comment on above: Order Comment: No: D o not add to previous draw Performed By: #### 4 1000, 51776, 44354 ####[facility] [place] [address], [facility] PHOSPHORUS BLOODon 1 Phosphate [Mass/Vol] 3.1 mg/dL Normal 2.5-5.0 [facility] Comment on above: Order Comment: No: D o not add to previous draw Performed By: #### 4 1000, 73054, 98016 ####[facility] [place] [address], [facility] TACROLIMUSon 08-16-2020 Tacrolimus (Bld) [Mass/Vol] 3.5 ng/mL Low 5.0-20.0 [facility] Comment on above: Order Comment: Belg[place] wn Result Comment: The [employer] Tacrolimus assay is a delayed one-step immunoassay for the quantitative determination of tacrolimus in human whole blood using the chemiluminescent microparticle immunoassay (CMIA) technology with flexible assay protocols, referred to as Chemiflex. Performed By: #### 2 5508, 73457, 69598, 82822, 40188 #### [facility] [address] [facility] [place] [address], [facility] C REACTIVE PROTEINon 021 CRP [Mass/Vol] 20.9 mg/L High 0.0-7.0 [facility] Comment on above: Order Comment: Yes: Add to Previous draw if able Performed By: #### 2 5508, 52021, 43986, 52800, 66763 #### [facility] [address] [facility] [place] [address], [facility] CPKon 08-15-2020 CK [Catalytic activity/Vol] 38 U/L Normal 30-223 [facility] Comment on above: Order Comment: Ronda wn Performed By: #### 2 5508, 42901, 89084, 43858, 04590 #### [facility] [address] [place] [address], [facility] D DIMER TESTon 08-15-2020 D-DIMER TEST 2.03 mcg/mL FEU High 0.27-0.49 [facility] Comment on above: Order Comment: Yes: Add to Previous draw if able Result Comment: D-Di priscilla values of less than 0.50 ug/ml (FEU) are considered to be a negative predictor of thrombosis. However, the D-Dimer result should be used in conjunction with pretest probability and should not be used alone to diagnose a thrombotic event. Performed By: #### 2 5508, 46711, 82589, 95473, 22405 #### [facility] [address] [place] [address], [facility] FERRITINon 08-15-2020 Ferritin [Mass/Vol] 1412 ng/mL High 24-336 [facility] Comment on above: Order Comment: Unkno wn Performed By: #### 2 5508, 78023, 30776, 42982, 10849 #### [facility] [address] [place] [address], [facility] LDH BLOODon 08-15-2020 LDH 457 Units/L High 140-271 [facility] Comment on above: Order Comment: Unkno wn Performed By: #### 2 5508, 96134, 17659, 38188, 37742 #### [facility] [address] [place] [address], [facility] LIVER BATTERYon 08-15-2020 Albumin [Mass/Vol] 3.1 g/dL Low 3.5-5.7 [facility] Comment on above: Order Comment: Unkno wn Performed By: #### 2 5508, 27905, 81468, 79394, 08255 #### [facility] [address] [place] [address], [facility] ALKALINE PHOSPH 94 IU/L Normal 34-104 [facility] Comment on above: Order Comment: Unkno wn Performed By: #### 2 5508, 64204, 63990, 71465, 98089 #### [facility] [address] [place] [address], [facility] ALT [Catalytic activity/Vol] 108 U/L High 7-52 [facility] Comment on above: Order Comment: Unkno wn Performed By: #### 2 5508, 87114, 94566, 56193, 39505 #### [facility] [address] AST [Catalytic activity/Vol] 54 U/L High 13-39 [facility] Comment on above: Order Comment: Unkno wn Performed By: #### 2 5508, 93872, 75198, 21361, 45230 #### [facility] [address] Bilirubin [Mass/Vol] 0.8 mg/dL Normal 0.3-1.0 [facility] Comment on above: Order Comment: Unkno wn Performed By: #### 2 5508, 66612, 74680, 01826, 57852 #### [facility] [address] [facility] [address] Bilirubin.direct [Mass/Vol] 0.2 mg/dL Normal 0.0-0.2 [facility] Comment on above: Order Comment: Unkno wn Performed By: #### 2 5508, 25967, 59961, 78906, 36175 #### [facility] [address] [facility] [address] Protein [Mass/Vol] 5.9 g/dL Low 6.0-8.3 [facility] Comment on above: Order Comment: Unkno wn Performed By: #### 2 5508, 87363, 49847, 76495, 84394 #### [facility] [address] TACROLIMUSon 08-15-2020 Tacrolimus (Bld) [Mass/Vol] 4.4 ng/mL Low 5.0-20.0 [facility] Comment on above: Order Comment: Yes: Add to Previous draw if able Result Comment: The [employer] Tacrolimus assay is a delayed one-step immunoassay for the quantitative determination of tacrolimus in human whole blood using the chemiluminescent microparticle immunoassay (CMIA) technology with flexible assay protocols, referred to as Chemiflex. Performed By: #### 2 5508, 98925, 60323, 75193, 42519 #### [facility] [address] [place] [address], [place] BASIC METABOLIC PANELon 04-3 -2020 Calcium [Mass/Vol] 8.2 mg/dL Low 8.6-10.3 [facility] Comment on above: Order Comment: No: D o not add to previous draw Performed By: #### 2 5508, 74231, 88269, 75383, 35290 #### [facility] [address] [place] [address], [place] Chloride [Moles/Vol] 102 mmol/L Normal 98-107 [facility] Comment on above: Order Comment: No: D o not add to previous draw Performed By: #### 2 5508, 34310, 98085, 99115, 39794 #### [facility] [address] [place] [address], [place] CO2 [Moles/Vol] 19 mmol/L Low 21-31 [facility] Comment on above: Order Comment: No: D o not add to previous draw Performed By: #### 2 5508, 74575, 57743, 32766, 50217 #### [facility] [address] [place] [address], [place] Creatinine [Mass/Vol] 0.95 mg/dL Normal 0.70-1.30 [facility] Comment on above: Order Comment: No: D o not add to previous draw Performed By: #### 2 5508, 43382, 58379, 44779, 89672 #### [facility] [address] [place] [address], [place] GFR/1.73 sq M.predicted among blacks MDRD (S/P/Bld) [Vol rate/Area] mL/min/{1.73_m2} Normal >60 [facility] Comment on above: Order Comment: No: D o not add to previous draw Performed By: #### 2 5508, 12895, 45697, 74315, 16446 #### [facility] [address] [place] [address], [place] GFR/1.73 sq M.predicted among non-blacks MDRD (S/P/Bld) [Vol rate/Area] mL/min/{1.73_m2} Normal >60 [facility] Comment on above: Order Comment: No: D o not add to previous draw Performed By: #### 2 5508, 61973, 85159, 25084, 97305 #### [facility] [address] [place] [address], [place] Glucose [Mass/Vol] 253 mg/dL High 70-100 [facility] Comment on above: Order Comment: No: D o not add to previous draw Performed By: #### 2 5508, 01000, 74749, 33104, 25027 #### [facility] [address] [place] [address], [place] Potassium [Moles/Vol] 4.0 mmol/L Normal 3.5-5.1 [facility] Comment on above: Order Comment: No: D o not add to previous draw Performed By: #### 2 5508, 60183, 35548, 44559, 80502 #### [facility] [address] [place] [address], [place] Sodium [Moles/Vol] 130 mmol/L Low 136-145 [facility] Comment on above: Order Comment: No: D o not add to previous draw Performed By: #### 2 5508, 26166, 14350, 47873, 55411 #### [facility] [address] [place] [address], [place] Urea nitrogen [Mass/Vol] 34 mg/dL High 7-25 [facility] Comment on above: Order Comment: No: D o not add to previous draw Performed By: #### 2 5508, 26026, 01381, 55857, 54680 #### [facility] [address] [place] [address], [facility] C REACTIVE PROTEINon 021 CRP [Mass/Vol] 19.7 mg/L High 0.0-7.0 [facility] Comment on above: Order Comment: No: D o not add to previous draw Performed By: #### 6 1405 #### [facility] [address] [place] [address], [facility] COMP METABOLIC PANELon 08-14 Albumin [Mass/Vol] 3.0 g/dL Low 3.5-5.7 [facility] Comment on above: Order Comment: This order is a replacement of the rejected order with accession [id number]. Performed By: #### 2 5508, 41976, 17961, 96284, 37247 #### [facility] [address] [place] [address], [facility] ALKALINE PHOSPH 81 IU/L Normal 34-104 [facility] Comment on above: Order Comment: This order is a replacement of the rejected order with accession [id number]. Performed By: #### 2 5508, 77319, 55918, 61971, 64849 #### [facility] [address] [place] [address], [facility] ALT [Catalytic activity/Vol] 80 U/L High 7-52 [facility] Comment on above: Order Comment: This order is a replacement of the rejected order with accession [id number]. Performed By: #### 2 5508, 05340, 70400, 42955, 22993 #### [facility] [address] [place] [address], [facility] AST [Catalytic activity/Vol] 52 U/L High 13-39 [facility] Comment on above: Order Comment: This order is a replacement of the rejected order with accession [id number]. Performed By: #### 2 5508, 21696, 85014, 69010, 35151 #### [facility] [address] [place] [id number], [facility] Bilirubin [Mass/Vol] 0.7 mg/dL Normal 0.3-1.0 [facility] Comment on above: Order Comment: This order is a replacement of the rejected order with accession [id number]. Performed By: #### 2 5508, 08359, 02152, 63798, 74751 #### [facility] [address] [place] [address], [facility] Calcium [Mass/Vol] 8.1 mg/dL Low 8.6-10.3 [facility] Comment on above: Order Comment: This order is a replacement of the rejected order with accession [id number]. Performed By: #### 2 5508, 94382, 02605, 46665, 16905 #### [facility] [address] [place] [address], [facility] Chloride [Moles/Vol] 102 mmol/L Normal 98-107 [facility] Comment on above: Order Comment: This order is a replacement of the rejected order with accession [id number]. Performed By: #### 2 5508, 60175, 66424, 87924, 91423 #### [facility] [address] [place] [address], [place] CO2 [Moles/Vol] 24 mmol/L Normal 21-31 [facility] Comment on above: Order Comment: This order is a replacement of the rejected order with accession [id number]. Performed By: #### 2 5508, 28259, 35612, 50965, 62834 #### [facility] [address] [place] [address], [place] Creatinine [Mass/Vol] 0.98 mg/dL Normal 0.70-1.30 [facility] Comment on above: Order Comment: This order is a replacement of the rejected order with accession [id number]. Performed By: #### 2 5508, 97150, 32453, 75876, 86185 #### [facility] [address] [place] [address], [place] GFR/1.73 sq M.predicted among blacks MDRD (S/P/Bld) [Vol rate/Area] mL/min/{1.73_m2} Normal >60 [facility] Comment on above: Order Comment: This order is a replacement of the rejected order with accession [id number]. Performed By: #### 2 5508, 62939, 32616, 80944, 90630 #### [facility] [address] [place] [address], [facility] GFR/1.73 sq M.predicted among non-blacks MDRD (S/P/Bld) [Vol rate/Area] mL/min/{1.73_m2} Normal >60 [facility] Comment on above: Order Comment: This order is a replacement of the rejected order with accession [id number]. Performed By: #### 2 5508, 23552, 30481, 41821, 41300 #### [facility] [address] [place] [address], [place] Glucose [Mass/Vol] 141 mg/dL High 70-100 [facility] Comment on above: Order Comment: This order is a replacement of the rejected order with accession [id number]. Performed By: #### 2 5508, 77198, 09778, 43043, 94257 #### [facility] [address] [place] [address], [place] Potassium [Moles/Vol] 4.2 mmol/L Normal 3.5-5.1 [facility] Comment on above: Order Comment: This order is a replacement of the rejected order with accession [id number]. Performed By: #### 2 5508, 05603, 89379, 01722, 23729 #### [facility] [address] [place] [address], [place] Protein [Mass/Vol] 5.6 g/dL Low 6.0-8.3 [facility] Comment on above: Order Comment: This order is a replacement of the rejected order with accession [id number]. Performed By: #### 2 5508, 85827, 20151, 08692, 64298 #### [facility] [address] [facility] [place] [address], [facility] Sodium [Moles/Vol] 132 mmol/L Low 136-145 [facility] Comment on above: Order Comment: This order is a replacement of the rejected order with accession [id number]. Performed By: #### 2 5508, 00250, 98047, 81915, 52294 #### [facility] [facility] [address] Urea nitrogen [Mass/Vol] 32 mg/dL High 7-25 [facility] Comment on above: Order Comment: This order is a replacement of the rejected order with accession [id number]. Performed By: #### 2 5508, 41482, 73137, 57589, 03339 #### [facility] 3000 [facility]. [address] CPKon 08-14-2020 CK [Catalytic activity/Vol] 47 U/L Normal 30-223 [facility] Comment on above: Order Comment: No: D o not add to previous draw Performed By: #### 2 5508, 20455, 33279, 30576, 50453 #### [facility] 3000 [facility]. [address] D DIMER TESTon 08-14-2020 D-DIMER TEST 2.41 mcg/mL FEU High 0.27-0.49 [facility] Comment on above: Order Comment: No: D o not add to previous draw Result Comment: D-Di priscilla values of less than 0.50 ug/ml (FEU) are considered to be a negative predictor of thrombosis. However, the D-Dimer result should be used in conjunction with pretest probability and should not be used alone to diagnose a thrombotic event. Performed By: #### 6 1405 #### [facility] [address] [place] [place] [address], [facility] FERRITINon 08-14-2020 Ferritin [Mass/Vol] 836 ng/mL High 24-336 [facility] Comment on above: Order Comment: No: D o not add to previous draw Performed By: #### 2 5508, 31953, 56603, 80761, 34302 #### [facility] [address] [place] [address], [facility] LDH BLOODon 08-14-2020 LDH 310 Units/L High 140-271 [facility] Comment on above: Order Comment: No: D o not add to previous draw Performed By: #### 2 5508, 33018, 84106, 14059, 43654 #### [facility] [address] [place] [address], [facility] LIVER BATTERYon 08-14-2020 Albumin [Mass/Vol] 2.9 g/dL Low 3.5-5.7 [facility] Comment on above: Order Comment: No: D o not add to previous draw Performed By: #### 2 5508, 51187, 18500, 08140, 09271 #### [facility] [address] [place] [address], [facility] ALKALINE PHOSPH 78 IU/L Normal 34-104 [facility] Comment on above: Order Comment: No: D o not add to previous draw Performed By: #### 2 5508, 15675, 07324, 23624, 30682 #### [facility] [address] [place] [address], [place] ALT [Catalytic activity/Vol] 83 U/L High 7-52 [facility] Comment on above: Order Comment: No: D o not add to previous draw Performed By: #### 2 5508, 72964, 95121, 51320, 79428 #### [facility] [address] [place] [address], [place] AST [Catalytic activity/Vol] 46 U/L High 13-39 [facility] Comment on above: Order Comment: No: D o not add to previous draw Performed By: #### 2 5508, 52291, 41774, 78177, 09575 #### [facility] [address] [place] [address], [facility] Bilirubin [Mass/Vol] 0.6 mg/dL Normal 0.3-1.0 [facility] Comment on above: Order Comment: No: D o not add to previous draw Performed By: #### 2 5508, 94586, 15835, 09911, 47349 #### [facility] [address] [place] [address], [facility] Bilirubin.direct [Mass/Vol] 0.2 mg/dL Normal 0.0-0.2 [facility] Comment on above: Order Comment: No: D o not add to previous draw Performed By: #### 2 5508, 25706, 02247, 48146, 51518 #### [facility] [address] [place] [address], [facility] Protein [Mass/Vol] 5.3 g/dL Low 6.0-8.3 [facility] Comment on above: Order Comment: No: D o not add to previous draw Performed By: #### 2 5508, 63656, 25149, 35659, 44108 #### [facility] [address] [facility] [place] [address], [facility] OSMOLALITY BLOODon Osmolality [Osmolality] 291 mosm/kg Normal 285-305 [facility] Comment on above: Order Comment: No: D o not add to previous draw Performed By: #### 2 5508, 12973, 80629, 87180, 07624 #### [facility] [address] [place] [address], [facility] TACROLIMUSon 08-14-2020 Tacrolimus (Bld) [Mass/Vol] 9.7 ng/mL Normal 5.0-20.0 [facility] Comment on above: Order Comment: Yes: Add to Previous draw if able Result Comment: The [employer] Tacrolimus assay is a delayed one-step immunoassay for the quantitative determination of tacrolimus in human whole blood using the chemiluminescent microparticle immunoassay (CMIA) technology with flexible assay protocols, referred to as Chemiflex. Performed By: #### 2 5508, 90148, 32611, 50819, 68084 #### [facility] [address] Tacrolimus (Bld) [Mass/Vol] 5.7 ng/mL Normal 5.0-20.0 [facility] Comment on above: Order Comment: Yes: Add to Previous draw if able Result Comment: The [employer] Tacrolimus assay is a delayed one-step immunoassay for the quantitative determination of tacrolimus in human whole blood using the chemiluminescent microparticle immunoassay (CMIA) technology with flexible assay protocols, referred to as Chemiflex. Performed By: #### 2 5508, 65406, 82946, 97409, 67365 #### [facility] [address] COMP METABOLIC PANELon 08-12 Albumin [Mass/Vol] 3.2 g/dL Low 3.5-5.7 [facility] Comment on above: Order Comment: No: D o not add to previous draw Performed By: #### 2 5508, 19939, 06508, 64098, 55778 #### [facility] [address] ALKALINE PHOSPH 89 IU/L Normal 34-104 [facility] Comment on above: Order Comment: No: D o not add to previous draw Performed By: #### 2 5508, 88109, 07873, 90224, 58778 #### [facility] [address] ALT [Catalytic activity/Vol] 69 U/L High 7-52 [facility] Comment on above: Order Comment: No: D o not add to previous draw Performed By: #### 2 5508, 68593, 68706, 08422, 18295 #### [facility] [address] [place] [address], [facility] AST [Catalytic activity/Vol] 54 U/L High 13-39 [facility] Comment on above: Order Comment: No: D o not add to previous draw Performed By: #### 2 5508, 28232, 80163, 37216, 15726 #### [facility] [address] [place] [address], [place] Bilirubin [Mass/Vol] 1.0 mg/dL Normal 0.3-1.0 [facility] Comment on above: Order Comment: No: D o not add to previous draw Performed By: #### 2 5508, 62573, 28588, 37960, 37782 #### [facility] [address] [place] [address], [place] Calcium [Mass/Vol] 8.8 mg/dL Normal 8.6-10.3 [facility] Comment on above: Order Comment: No: D o not add to previous draw Performed By: #### 2 5508, 68416, 56780, 74269, 57220 #### [facility] [address] [place] [address], [place] Chloride [Moles/Vol] 97 mmol/L Low 98-107 [facility] Comment on above: Order Comment: No: D o not add to previous draw Performed By: #### 2 5508, 42079, 06782, 41233, 20436 #### [facility] [address] [place] [address], [place] CO2 [Moles/Vol] 24 mmol/L Normal 21-31 [facility] Comment on above: Order Comment: No: D o not add to previous draw Performed By: #### 2 5508, 28452, 41346, 52066, 03724 #### [facility] [address] [place] [address], [place] Creatinine [Mass/Vol] 0.82 mg/dL Normal 0.70-1.30 [facility] Comment on above: Order Comment: No: D o not add to previous draw Performed By: #### 2 5508, 72375, 91661, 60630, 32411 #### [facility] [address] [place] [address], [place] GFR/1.73 sq M.predicted among blacks MDRD (S/P/Bld) [Vol rate/Area] mL/min/{1.73_m2} Normal >60 [facility] Comment on above: Order Comment: No: D o not add to previous draw Performed By: #### 2 5508, 27457, 55935, 38853, 69718 #### [facility] [address] [place] [address], [place] GFR/1.73 sq M.predicted among non-blacks MDRD (S/P/Bld) [Vol rate/Area] mL/min/{1.73_m2} Normal >60 [facility] Comment on above: Order Comment: No: D o not add to previous draw Performed By: #### 2 5508, 77292, 76318, 58922, 22264 #### [facility] [address] [place] [address], [place] Glucose [Mass/Vol] 154 mg/dL High 70-100 [facility] Comment on above: Order Comment: No: D o not add to previous draw Performed By: #### 2 5508, 13060, 65181, 83593, 14387 #### [facility] [address] [place] [address], [place] Potassium [Moles/Vol] 4.9 mmol/L Normal 3.5-5.1 [facility] Comment on above: Order Comment: No: D o not add to previous draw Performed By: #### 2 5508, 68369, 37408, 85870, 96026 #### [facility] [address] [place] [address], [place] Protein [Mass/Vol] 6.1 g/dL Normal 6.0-8.3 [facility] Comment on above: Order Comment: No: D o not add to previous draw Performed By: #### 2 5508, 73404, 44177, 42635, 29317 #### [facility] [address] [place] [address], [facility] Sodium [Moles/Vol] 128 mmol/L Low 136-145 [facility] Comment on above: Order Comment: No: D o not add to previous draw Performed By: #### 2 5508, 05746, 22296, 72238, 82003 #### [facility] [address] [place] [address], [facility] Urea nitrogen [Mass/Vol] 32 mg/dL High 7-25 [facility] Comment on above: Order Comment: No: D o not add to previous draw Performed By: #### 2 5508, 08805, 05125, 50028, 72900 #### [facility] [address] [place] [address], [facility] OSMOLALITY URINEon OSMOLALITY 857 mOsm/kg Normal 50-1400 [facility] Comment on above: Order Comment: No: D o not add to previous draw Performed By: #### 2 5508, 96327, 04055, 89510, 96742 #### [facility] [address] [place] [id number], [facility] SODIUM URINE RANDOMon 2020 Sodium (U) [Moles/Vol] 51 mmol/L Normal [facility] Comment on above: Order Comment: No: D o not add to previous draw Result Comment: Ther e are no established reference values for random urine specimens Performed By: #### 2 5508, 32577, 42063, 61921, 73937 #### [facility] [address] [place] [id number], [facility] TACROLIMUSon 08-12-2020 Tacrolimus (Bld) [Mass/Vol] 5.2 ng/mL Normal 5.0-20.0 [facility] Comment on above: Order Comment: Unkno wn Result Comment: The [employer] Tacrolimus assay is a delayed one-step immunoassay for the quantitative determination of tacrolimus in human whole blood using the chemiluminescent microparticle immunoassay (CMIA) technology with flexible assay protocols, referred to as Chemiflex. Performed By: #### 9 9914 ####[facility] [place] [address], [facility] BASIC METABOLIC PANELon 04-2 Calcium [Mass/Vol] 8.6 mg/dL Normal 8.6-10.3 [facility] Comment on above: Order Comment: No: D o not add to previous draw Performed By: #### 2 5508, 37640, 55888, 87130, 95051 #### [facility] [address] [place] [address], [place] Chloride [Moles/Vol] 97 mmol/L Low 98-107 [facility] Comment on above: Order Comment: No: D o not add to previous draw Performed By: #### 2 5508, 56205, 14985, 69732, 32967 #### [facility] [address] [place] [address], [place] CO2 [Moles/Vol] 23 mmol/L Normal 21-31 [facility] Comment on above: Order Comment: No: D o not add to previous draw Performed By: #### 2 5508, 08192, 24403, 21440, 16095 #### [facility] [address] [place] [address], [place] Creatinine [Mass/Vol] 0.82 mg/dL Normal 0.70-1.30 [facility] Comment on above: Order Comment: No: D o not add to previous draw Performed By: #### 2 5508, 05601, 75328, 93828, 99153 #### [facility] [address] [place] [address], [place] GFR/1.73 sq M.predicted among blacks MDRD (S/P/Bld) [Vol rate/Area] mL/min/{1.73_m2} Normal >60 [facility] Comment on above: Order Comment: No: D o not add to previous draw Performed By: #### 2 5508, 59534, 88726, 36976, 82668 #### [facility] [address] [place] [address], [facility] GFR/1.73 sq M.predicted among non-blacks MDRD (S/P/Bld) [Vol rate/Area] mL/min/{1.73_m2} Normal >60 [facility] Comment on above: Order Comment: No: D o not add to previous draw Performed By: #### 2 5508, 30689, 95602, 86096, 27162 #### [facility] [address] [place] [address], [place] Glucose [Mass/Vol] 166 mg/dL High 70-100 [facility] Comment on above: Order Comment: No: D o not add to previous draw Performed By: #### 2 5508, 72909, 42147, 48991, 41572 #### [facility] [address] [place] [address], [place] Potassium [Moles/Vol] 4.9 mmol/L Normal 3.5-5.1 [facility] Comment on above: Order Comment: No: D o not add to previous draw Performed By: #### 2 5508, 06585, 14784, 42913, 24311 #### [facility] [address] [place] [address], [facility] Sodium [Moles/Vol] 127 mmol/L Low 136-145 [facility] Comment on above: Order Comment: No: D o not add to previous draw Performed By: #### 2 5508, 27808, 77010, 84044, 78621 #### [facility] [address] [place] [address], [place] Urea nitrogen [Mass/Vol] 33 mg/dL High 7-25 [facility] Comment on above: Order Comment: No: D o not add to previous draw Performed By: #### 2 5508, 34542, 69254, 86445, 66797 #### [facility] [address] [place] [address], [place] CREATININE URINE RANDOMon Creatinine (U) [Mass/Vol] 59.0 mg/dL Normal [facility] Comment on above: Order Comment: Yes: Add to Previous draw if able Result Comment: Ther e are no established reference values for random urine specimens Performed By: #### 2 5508, 31553, 07146, 90205, 71850 #### [facility] [address] [place] [address], [facility] MAGNESIUM BLOODon 08-11-2020 Magnesium [Mass/Vol] 1.7 mg/dL Low 1.9-2.7 [facility] Comment on above: Order Comment: No: D o not add to previous draw Performed By: #### 2 5508, 50417, 10934, 70357, 01721 #### [facility] [address] [place] [address], [facility] SODIUM URINE RANDOMon 2020 Sodium (U) [Moles/Vol] 90 mmol/L Normal [facility] Comment on above: Order Comment: Yes: Add to Previous draw if able Result Comment: Ther e are no established reference values for random urine specimens Performed By: #### 2 5508, 69289, 41195, 74019, 62558 #### [facility] [address] [place] [address], [facility] TACROLIMUSon 08-11-2020 Tacrolimus (Bld) [Mass/Vol] 6.3 ng/mL Normal 5.0-20.0 [facility] Comment on above: Order Comment: Yes: Add to Previous draw if able Result Comment: The [employer] Tacrolimus assay is a delayed one-step immunoassay for the quantitative determination of tacrolimus in human whole blood using the chemiluminescent microparticle immunoassay (CMIA) technology with flexible assay protocols, referred to as Chemiflex. Performed By: #### 2 5508, 59382, 51072, 59469, 27911 #### [facility] [address] [place] [address], [facility] BASIC METABOLIC PANELon 07-17 Calcium [Mass/Vol] 8.3 mg/dL Low 8.6-10.3 [facility] Comment on above: Order Comment: Yes: Add to Previous draw if able Performed By: #### 2 5508, 46062, 22852, 32962, 63626 #### [facility] [address] [place] [address], [facility] Chloride [Moles/Vol] 102 mmol/L Normal 98-107 [facility] Comment on above: Order Comment: Yes: Add to Previous draw if able Performed By: #### 2 5508, 83085, 31887, 62492, 94550 #### [facility] [address] [place] [address], [place] CO2 [Moles/Vol] 20 mmol/L Low 21-31 [facility] Comment on above: Order Comment: Yes: Add to Previous draw if able Performed By: #### 2 5508, 53589, 64271, 36243, 08710 #### [facility] [address] [place] [address], [place] Creatinine [Mass/Vol] 0.78 mg/dL Normal 0.70-1.30 [facility] Comment on above: Order Comment: Yes: Add to Previous draw if able Performed By: #### 2 5508, 61410, 81339, 14576, 15875 #### [facility] [address] [place] [address], [place] GFR/1.73 sq M.predicted among blacks MDRD (S/P/Bld) [Vol rate/Area] mL/min/{1.73_m2} Normal >60 [facility] Comment on above: Order Comment: Yes: Add to Previous draw if able Performed By: #### 2 5508, 44025, 84269, 86281, 07569 #### [facility] [address] [place] [address], [place] GFR/1.73 sq M.predicted among non-blacks MDRD (S/P/Bld) [Vol rate/Area] mL/min/{1.73_m2} Normal >60 [facility] Comment on above: Order Comment: Yes: Add to Previous draw if able Performed By: #### 2 5508, 44126, 68548, 30369, 44278 #### [facility] [address] [place] [address], [place] Glucose [Mass/Vol] 199 mg/dL High 70-100 [facility] Comment on above: Order Comment: Yes: Add to Previous draw if able Performed By: #### 2 5508, 36158, 85935, 97502, 52770 #### [facility] [address] [place] [address], [place] Potassium [Moles/Vol] 4.9 mmol/L Normal 3.5-5.1 [facility] Comment on above: Order Comment: Yes: Add to Previous draw if able Performed By: #### 2 5508, 67406, 17116, 44016, 56658 #### [facility] [address] [place] [address], [place] Sodium [Moles/Vol] 129 mmol/L Low 136-145 [facility] Comment on above: Order Comment: Yes: Add to Previous draw if able Performed By: #### 2 5508, 11536, 82724, 81433, 99804 #### [facility] [address] [place] [address], [place] Urea nitrogen [Mass/Vol] 33 mg/dL High 7-25 [facility] Comment on above: Order Comment: Yes: Add to Previous draw if able Performed By: #### 2 5508, 91349, 75738, 53688, 39514 #### [facility] [address] [place] [address], [place] CBC COMPLETE BLOOD COUNTon 0 08-10-2020 Erythrocyte distribution width (RBC) [Ratio] 12.9 % Normal 11.5-15.0 [facility] Comment on above: Order Comment: No: D o not add to previous draw Performed By: #### 6 1405 #### [facility] [address] [place] [address], [place] Hematocrit (Bld) [Volume fraction] 45.9 % Normal 39.0-50.0 [facility] Comment on above: Order Comment: No: D o not add to previous draw Performed By: #### 6 1405 #### [facility] [address] [place] [address], [facility] Hemoglobin (Bld) [Mass/Vol] 15.3 g/dL Normal 13.0-17.0 [facility] Comment on above: Order Comment: No: D o not add to previous draw Performed By: #### 6 1405 #### [facility] [address] [facility] [place] [address], [facility] MCH (RBC) [Entitic mass] 29.3 pg Normal 27.0-33.0 [facility] Comment on above: Order Comment: No: D o not add to previous draw Performed By: #### 6 1405 #### [facility] [address] [place] [address], [facility] MCHC (RBC) [Mass/Vol] 33.3 g/dL Normal 32.0-35.0 [facility] Comment on above: Order Comment: No: D o not add to previous draw Performed By: #### 6 1405 #### [facility] [address] [place] [address], [facility] MCV (RBC) [Entitic vol] 87.8 fL Normal 82.0-98.0 [facility] Comment on above: Order Comment: No: D o not add to previous draw Performed By: #### 6 1405 #### [facility] [address] [facility] [place] [address], [facility] Nucleated RBC/100 WBC (Bld) [Ratio] 0 % Normal 0-0 [facility] Comment on above: Order Comment: No: D o not add to previous draw Performed By: #### 6 1405 #### [facility] [address] [place] [address], [facility] PLAT CNT 422 10*3/uL High 150-400 [facility] Comment on above: Order Comment: No: D o not add to previous draw Performed By: #### 6 1405 #### [facility] [address] [place] [address], [facility] RBC (Bld) [#/Vol] 5.23 10*6/uL Normal 4.20-5.70 [facility] Comment on above: Order Comment: No: D o not add to previous draw Performed By: #### 6 1405 #### [facility] [address] [facility] [place] [address], [facility] WBC (Bld) [#/Vol] 7.77 10*3/uL Normal 4.00-10.60 [facility] Comment on above: Order Comment: No: D o not add to previous draw Performed By: #### 6 1405 #### [facility] [address] MAGNESIUM BLOODon 08-10-2020 Magnesium [Mass/Vol] 1.7 mg/dL Low 1.9-2.7 [facility] Comment on above: Order Comment: Yes: Add to Previous draw if able Performed By: #### 2 5508, 94086, 61840, 83653, 79380 #### [facility] [address] PORTABLE CHEST 1 VIEWon 07-17 PORTABLE CHEST 1 VIEW [facility] Department of Radiology [address] [place] [id number] Patient Name: VISHAL DUKE : 1960 Sex: M Age: Race: [address] Location: [id number] Patient Status: I Ordered Date: 08/10/2020 7:40:00 [...] pneumothorax. Electronically signed: Brett Mc. Transcribed by: [email or web address], User Resident: Electronically Signed by: BRETT MC @ 08/10/2020 10:10 AM Normal [facility] Comment on above: Order Comment: No: D o not add to previous draw CV'D BY IMM LAB AT 1240 TACROLIMUSon 08-10-2020 Tacrolimus (Bld) [Mass/Vol] 11.2 ng/mL Normal 5.0-20.0 [facility] Comment on above: Order Comment: No: D o not add to previous draw Result Comment: The [employer] Tacrolimus assay is a delayed one-step immunoassay for the quantitative determination of tacrolimus in human whole blood using the chemiluminescent microparticle immunoassay (CMIA) technology with flexible assay protocols, referred to as Chemiflex. Performed By: #### 2 5508, 55639, 60259, 30889, 38848 #### [facility] [address] TACROLIMUSon 08-09-2020 Tacrolimus (Bld) [Mass/Vol] 11.0 ng/mL Normal 5.0-20.0 [facility] Comment on above: Order Comment: Yes: Add to Previous draw if able Result Comment: The [employer] Tacrolimus assay is a delayed one-step immunoassay for the quantitative determination of tacrolimus in human whole blood using the chemiluminescent microparticle immunoassay (CMIA) technology with flexible assay protocols, referred to as Chemiflex. Performed By: #### 2 5508, 83434, 56408, 52911, 22345 #### [facility] [address] [facility] [address] TROPONIN-Ion 08-09-2020 Troponin I.cardiac [Mass/Vol] 5.31 ng/mL Critically high 0.00-0.04 [facility] Comment on above: Order Comment: Yes: Add to Previous draw if able Result Comment: M-HI EVIOUS CRITICAL RESULT REFERENCE RANGES: 0.00 - 0.04 ng/ml NORMAL 0.05 - 0.50 ng/ml INDETERMINATE > 0.50 ng/ml CONSISTENT WITH AN M.I. Performed By: #### 2 5508, 64769, 83529, 12529, 50555 #### [facility] [address] [facility] UFH HEPARIN ASSAYon 08-10-19 21 UNFRACTIONATED HEPARIN <0.10 Critically low 0.30-0.70 [facility] Comment on above: Result Comment: Clinton roxaban and Apixaban will interfere with the anti Xa assay used to monitor UFH and LMWH. Results called. Accurately read back by Luiz Shaffer RN at 0709 Performed By: #### 3 0477 ####[facility]3000 [facility].[address] COMP METABOLIC PANELon 08-08 Albumin [Mass/Vol] 2.8 g/dL Low 3.5-5.7 [facility] Comment on above: Order Comment: Yes: Add to Previous draw if able Performed By: #### 2 5508, 92753, 35631, 69460, 63934 #### [facility] [address] [place] [address], [facility] ALKALINE PHOSPH 70 IU/L Normal 34-104 [facility] Comment on above: Order Comment: Yes: Add to Previous draw if able Performed By: #### 2 5508, 98520, 40206, 03689, 72384 #### [facility] [address] [place] [address], [place] ALT [Catalytic activity/Vol] 30 U/L Normal 7-52 [facility] Comment on above: Order Comment: Yes: Add to Previous draw if able Performed By: #### 2 5508, 14879, 79090, 79901, 17041 #### [facility] [address] [place] [address], [place] AST [Catalytic activity/Vol] 48 U/L High 13-39 [facility] Comment on above: Order Comment: Yes: Add to Previous draw if able Performed By: #### 2 5508, 49936, 75587, 42023, 96206 #### [facility] [address] [place] [address], [place] Bilirubin [Mass/Vol] 0.9 mg/dL Normal 0.3-1.0 [facility] Comment on above: Order Comment: Yes: Add to Previous draw if able Performed By: #### 2 5508, 75110, 10687, 17201, 87241 #### [facility] [address] [place] [address], [place] Calcium [Mass/Vol] 8.1 mg/dL Low 8.6-10.3 [facility] Comment on above: Order Comment: Yes: Add to Previous draw if able Performed By: #### 2 5508, 00181, 82564, 36318, 07317 #### [facility] [address] [place] [address], [place] Chloride [Moles/Vol] 104 mmol/L Normal 98-107 [facility] Comment on above: Order Comment: Yes: Add to Previous draw if able Performed By: #### 2 5508, 47373, 49244, 11665, 10709 #### [facility] [address] [place] [address], [place] CO2 [Moles/Vol] 19 mmol/L Low 21-31 [facility] Comment on above: Order Comment: Yes: Add to Previous draw if able Performed By: #### 2 5508, 74249, 93063, 50125, 52202 #### [facility] [address] [place] [address], [place] Creatinine [Mass/Vol] 0.92 mg/dL Normal 0.70-1.30 [facility] Comment on above: Order Comment: Yes: Add to Previous draw if able Performed By: #### 2 5508, 13518, 72876, 75665, 27014 #### [facility] [address] [place] [address], [place] GFR/1.73 sq M.predicted among blacks MDRD (S/P/Bld) [Vol rate/Area] mL/min/{1.73_m2} Normal >60 [facility] Comment on above: Order Comment: Yes: Add to Previous draw if able Performed By: #### 2 5508, 14815, 03628, 85120, 97010 #### [facility] [address] [place] [address], [place] GFR/1.73 sq M.predicted among non-blacks MDRD (S/P/Bld) [Vol rate/Area] mL/min/{1.73_m2} Normal >60 [facility] Comment on above: Order Comment: Yes: Add to Previous draw if able Performed By: #### 2 5508, 30678, 05140, 84973, 60717 #### [facility] [address] [place] [address], [facility] Glucose [Mass/Vol] 159 mg/dL High 70-100 [facility] Comment on above: Order Comment: Yes: Add to Previous draw if able Performed By: #### 2 5508, 80890, 81643, 20931, 99637 #### [facility] [address] [place] [address], [facility] Potassium [Moles/Vol] 5.2 mmol/L High 3.5-5.1 [facility] Comment on above: Order Comment: Yes: Add to Previous draw if able Performed By: #### 2 5508, 17679, 81973, 39465, 11903 #### [facility] [address] [place] [address], [facility] Protein [Mass/Vol] 5.5 g/dL Low 6.0-8.3 [facility] Comment on above: Order Comment: Yes: Add to Previous draw if able Performed By: #### 2 5508, 03633, 18107, 13659, 07015 #### [facility] [address] [place] [id number], [facility] Sodium [Moles/Vol] 133 mmol/L Low 136-145 [facility] Comment on above: Order Comment: Yes: Add to Previous draw if able Performed By: #### 2 5508, 84248, 35436, 55973, 74985 #### [facility] [address] [place] [address], [place] Urea nitrogen [Mass/Vol] 35 mg/dL High 7-25 [facility] Comment on above: Order Comment: Yes: Add to Previous draw if able Performed By: #### 2 5508, 75504, 59164, 11913, 77335 #### [facility] [address] [place] [address], [place] TACROLIMUSon 08-08-2020 Tacrolimus (Bld) [Mass/Vol] 7.8 ng/mL Normal 5.0-20.0 [facility] Comment on above: Order Comment: Unkno wn Result Comment: The [employer] Tacrolimus assay is a delayed one-step immunoassay for the quantitative determination of tacrolimus in human whole blood using the chemiluminescent microparticle immunoassay (CMIA) technology with flexible assay protocols, referred to as Chemiflex. Performed By: #### 2 5508, 32740, 99234, 38412, 02388 #### [facility] 3000 [facility]. [address] UFH HEPARIN ASSAYon 08-09-19 21 UNFRACTIONATED HEPARIN 0.74 IU/mL High 0.30-0.70 [facility] Comment on above: Result Comment: Gabby roxaban and Apixaban will interfere with the anti Xa assay used to monitor UFH and LMWH. Performed By: #### 3 0477 ####[facility] C REACTIVE PROTEINon 021 CRP [Mass/Vol] 75.8 mg/L High 0.0-7.0 [facility] Comment on above: Order Comment: No: D o not add to previous draw CV'D BY IMM LAB AT 1240 Performed By: #### 6 1405 #### [facility] [address] [facility] [place] [address], [facility] SEDIMENTATION RATEon 021 SED RATE 30 mm/hr High 0-10 [facility] Comment on above: Order Comment: No: D o not add to previous draw Performed By: #### 6 1405 #### [facility] [address] [facility] [place] [address], [facility] TACROLIMUSon 08-07-2020 Tacrolimus (Bld) [Mass/Vol] 9.1 ng/mL Normal 5.0-20.0 [facility] Comment on above: Order Comment: Unkno wn Result Comment: The [employer] Tacrolimus assay is a delayed one-step immunoassay for the quantitative determination of tacrolimus in human whole blood using the chemiluminescent microparticle immunoassay (CMIA) technology with flexible assay protocols, referred to as Chemiflex. Performed By: #### 9 9914 #### [facility] [address] TROPONIN-Ion 08-07-2020 Troponin I.cardiac [Mass/Vol] 7.37 ng/mL Critically high 0.00-0.04 [facility] Comment on above: Order Comment: Yes: Add to Previous draw if able Result Comment: M-HI EVIOUS CRITICAL RESULT 42.94 REFERENCE RANGES: 0.00 - 0.04 ng/ml NORMAL 0.05 - 0.50 ng/ml INDETERMINATE > 0.50 ng/ml CONSISTENT WITH AN M.I. Performed By: #### 2 5508, 35814, 07639, 87712, 90077 #### [facility] [address] [facility] [address] UFH HEPARIN ASSAYon 08-08-19 UNFRACTIONATED HEPARIN 0.48 IU/mL Normal 0.30-0.70 [facility] Comment on above: Result Comment: [place] roxaban and Apixaban will interfere with the anti Xa assay used to monitor UFH and LMWH. Performed By: #### 3 0477 ####[facility] CBC COMPLETE BLOOD COUNTon 0 08-06-2020 Erythrocyte distribution width (RBC) [Ratio] 13.2 % Normal 11.5-15.0 [facility] Comment on above: Order Comment: Yes: Add to Previous draw if able Performed By: #### 2 5508, 20249, 68806, 50898, 49321 #### [facility] [address] [place] [address], [facility] Hematocrit (Bld) [Volume fraction] 44.8 % Normal 39.0-50.0 [facility] Comment on above: Order Comment: Yes: Add to Previous draw if able Performed By: #### 2 5508, 90638, 36490, 49285, 12738 #### [facility] [address] [place] [address], [facility] Hemoglobin (Bld) [Mass/Vol] 14.8 g/dL Normal 13.0-17.0 [facility] Comment on above: Order Comment: Yes: Add to Previous draw if able Performed By: #### 2 5508, 21547, 86767, 08474, 41536 #### [facility] [address] [place] [address], [facility] MCH (RBC) [Entitic mass] 29.0 pg Normal 27.0-33.0 [facility] Comment on above: Order Comment: Yes: Add to Previous draw if able Performed By: #### 2 5508, 27336, 82872, 34435, 68858 #### [facility] [address] MCHC (RBC) [Mass/Vol] 33.0 g/dL Normal 32.0-35.0 [facility] Comment on above: Order Comment: Yes: Add to Previous draw if able Performed By: #### 2 5508, 02611, 44863, 03465, 04303 #### [facility] [address] [place] [address], [facility] MCV (RBC) [Entitic vol] 87.8 fL Normal 82.0-98.0 [facility] Comment on above: Order Comment: Yes: Add to Previous draw if able Performed By: #### 2 5508, 27244, 63763, 94934, 43137 #### [facility] [address] Nucleated RBC/100 WBC (Bld) [Ratio] 0 % Normal 0-0 [facility] Comment on above: Order Comment: Yes: Add to Previous draw if able Performed By: #### 2 5508, 82970, 34377, 91125, 76380 #### [facility] [address] [place] [address], [facility] PLAT CNT 367 10*3/uL Normal 150-400 [facility] Comment on above: Order Comment: Yes: Add to Previous draw if able Performed By: #### 2 5508, 33441, 59438, 40191, 29599 #### [facility] [address] [place] [address], [facility] RBC (Bld) [#/Vol] 5.10 10*6/uL Normal 4.20-5.70 [facility] Comment on above: Order Comment: Yes: Add to Previous draw if able Performed By: #### 2 5508, 10789, 61936, 64604, 09138 #### [facility] [address] [place] [address], [facility] WBC (Bld) [#/Vol] 3.94 10*3/uL Low 4.00-10.60 [facility] Comment on above: Order Comment: Yes: Add to Previous draw if able Performed By: #### 2 5508, 18174, 26048, 66432, 77937 #### [facility] [address] COMP METABOLIC PANELon 08-06 Albumin [Mass/Vol] 3.0 g/dL Low 3.5-5.7 [facility] Comment on above: Order Comment: No: D o not add to previous drawLABS DRAWN IN SAME HAND PAUSED IV. PT IS TO REMAIN FACE DOWN ONSTOMACH PER RN SO THAT IS THE ONLY PLACE WE CAN DRAW FROM RIGHT NOW. Performed By: #### 2 5508, 30261, 02305, 13781, 17283 #### [facility] [address] [facility] [place] [address], [facility] ALKALINE PHOSPH 74 IU/L Normal 34-104 [facility] Comment on above: Order Comment: No: D o not add to previous drawLABS DRAWN IN SAME HAND PAUSED IV. PT IS TO REMAIN FACE DOWN ONSTOMACH PER RN SO THAT IS THE ONLY PLACE WE CAN DRAW FROM RIGHT NOW. Performed By: #### 2 5508, 29283, 06381, 22352, 45667 #### [facility] [address] ALT [Catalytic activity/Vol] 42 U/L Normal 7-52 [facility] Comment on above: Order Comment: No: D o not add to previous drawLABS DRAWN IN SAME HAND PAUSED IV. PT IS TO REMAIN FACE DOWN ONSTOMACH PER RN SO THAT IS THE ONLY PLACE WE CAN DRAW FROM RIGHT NOW. Performed By: #### 2 5508, 48109, 79019, 77357, 21291 #### [facility] [address] AST [Catalytic activity/Vol] 112 U/L High 13-39 [facility] Comment on above: Order Comment: No: D o not add to previous drawLABS DRAWN IN SAME HAND PAUSED IV. PT IS TO REMAIN FACE DOWN ONSTOMACH PER RN SO THAT IS THE ONLY PLACE WE CAN DRAW FROM RIGHT NOW. Performed By: #### 2 5508, 09134, 11234, 20166, 86952 #### [facility] [address] [place] [address], [facility] Bilirubin [Mass/Vol] 1.4 mg/dL High 0.3-1.0 [facility] Comment on above: Order Comment: No: D o not add to previous drawLABS DRAWN IN SAME HAND PAUSED IV. PT IS TO REMAIN FACE DOWN ONSTOMACH PER RN SO THAT IS THE ONLY PLACE WE CAN DRAW FROM RIGHT NOW. Performed By: #### 2 5508, 80352, 79376, 25667, 00053 #### [facility] [address] [place] [id number], [facility] Calcium [Mass/Vol] 8.3 mg/dL Low 8.6-10.3 [facility] Comment on above: Order Comment: No: D o not add to previous drawLABS DRAWN IN SAME HAND PAUSED IV. PT IS TO REMAIN FACE DOWN ONSTOMACH PER RN SO THAT IS THE ONLY PLACE WE CAN DRAW FROM RIGHT NOW. Performed By: #### 2 5508, 70321, 62393, 79528, 55137 #### [facility] [address] [place] [address], [facility] Chloride [Moles/Vol] 105 mmol/L Normal 98-107 [facility] Comment on above: Order Comment: No: D o not add to previous drawLABS DRAWN IN SAME HAND PAUSED IV. PT IS TO REMAIN FACE DOWN ONSTOMACH PER RN SO THAT IS THE ONLY PLACE WE CAN DRAW FROM RIGHT NOW. Performed By: #### 2 5508, 49258, 01597, 70238, 12768 #### [facility] [address] [place] [address], [facility] CO2 [Moles/Vol] 20 mmol/L Low 21-31 [facility] Comment on above: Order Comment: No: D o not add to previous drawLABS DRAWN IN SAME HAND PAUSED IV. PT IS TO REMAIN FACE DOWN ONSTOMACH PER RN SO THAT IS THE ONLY PLACE WE CAN DRAW FROM RIGHT NOW. Performed By: #### 2 5508, 93561, 70224, 47238, 04785 #### [facility] [address] [place] [address], [facility] Creatinine [Mass/Vol] 0.91 mg/dL Normal 0.70-1.30 [facility] Comment on above: Order Comment: No: D o not add to previous drawLABS DRAWN IN SAME HAND PAUSED IV. PT IS TO REMAIN FACE DOWN ONSTOMACH PER RN SO THAT IS THE ONLY PLACE WE CAN DRAW FROM RIGHT NOW. Performed By: #### 2 5508, 62162, 63836, 77429, 60982 #### [facility] [address] [place] [address], [facility] GFR/1.73 sq M.predicted among blacks MDRD (S/P/Bld) [Vol rate/Area] mL/min/{1.73_m2} Normal >60 [facility] Comment on above: Order Comment: No: D o not add to previous drawLABS DRAWN IN SAME HAND PAUSED IV. PT IS TO REMAIN FACE DOWN ONSTOMACH PER RN SO THAT IS THE ONLY PLACE WE CAN DRAW FROM RIGHT NOW. Performed By: #### 2 5508, 50890, 50128, 80730, 22145 #### [facility] [address] [place] [address], [facility] GFR/1.73 sq M.predicted among non-blacks MDRD (S/P/Bld) [Vol rate/Area] mL/min/{1.73_m2} Normal >60 [facility] Comment on above: Order Comment: No: D o not add to previous drawLABS DRAWN IN SAME HAND PAUSED IV. PT IS TO REMAIN FACE DOWN ONSTOMACH PER RN SO THAT IS THE ONLY PLACE WE CAN DRAW FROM RIGHT NOW. Performed By: #### 2 5508, 63842, 85735, 90751, 93746 #### [facility] [address] [place] [address], [facility] Glucose [Mass/Vol] 153 mg/dL High 70-100 [facility] Comment on above: Order Comment: No: D o not add to previous drawLABS DRAWN IN SAME HAND PAUSED IV. PT IS TO REMAIN FACE DOWN ONSTOMACH PER RN SO THAT IS THE ONLY PLACE WE CAN DRAW FROM RIGHT NOW. Performed By: #### 2 5508, 36983, 52689, 88638, 57525 #### [facility] [address] [place] [address], [facility] Potassium [Moles/Vol] 4.7 mmol/L Normal 3.5-5.1 [facility] Comment on above: Order Comment: No: D o not add to previous drawLABS DRAWN IN SAME HAND PAUSED IV. PT IS TO REMAIN FACE DOWN ONSTOMACH PER RN SO THAT IS THE ONLY PLACE WE CAN DRAW FROM RIGHT NOW. Performed By: #### 2 5508, 24035, 28019, 09128, 94963 #### [facility] [address] [place] [address], [facility] Protein [Mass/Vol] 5.8 g/dL Low 6.0-8.3 [facility] Comment on above: Order Comment: No: D o not add to previous drawLABS DRAWN IN SAME HAND PAUSED IV. PT IS TO REMAIN FACE DOWN ONSTOMACH PER RN SO THAT IS THE ONLY PLACE WE CAN DRAW FROM RIGHT NOW. Performed By: #### 2 5508, 72277, 83548, 97520, 96101 #### [facility] 3000 [facility]. [address] Sodium [Moles/Vol] 136 mmol/L Normal 136-145 [facility] Comment on above: Order Comment: No: D o not add to previous drawLABS DRAWN IN SAME HAND PAUSED IV. PT IS TO REMAIN FACE DOWN ONSTOMACH PER RN SO THAT IS THE ONLY PLACE WE CAN DRAW FROM RIGHT NOW. Performed By: #### 2 5508, 03650, 44601, 73593, 75354 #### [facility] [address] [facility]. [address] Urea nitrogen [Mass/Vol] 28 mg/dL High 7-25 [facility] Comment on above: Order Comment: No: D o not add to previous drawLABS DRAWN IN SAME HAND PAUSED IV. PT IS TO REMAIN FACE DOWN ONSTOMACH PER RN SO THAT IS THE ONLY PLACE WE CAN DRAW FROM RIGHT NOW. Performed By: #### 2 5508, 76066, 96342, 72768, 51692 #### [facility] [address] [facility]. [address] TACROLIMUSon 08-06-2020 Tacrolimus (Bld) [Mass/Vol] 9.2 ng/mL Normal 5.0-20.0 [facility] Comment on above: Order Comment: Unkno wnLABS DRAWN IN SAME HAND PAUSED IV. PT IS TO REMAIN FACE DOWN ONSTOMACH PER RN SO THAT IS THE ONLY PLACE WE CAN DRAW FROM RIGHT NOW. Result Comment: [employer] Tacrolimus assay is a delayed one-step immunoassay for the quantitative determination of tacrolimus in human whole blood using the chemiluminescent microparticle immunoassay (CMIA) technology with flexible assay protocols, referred to as Chemiflex. Performed By: #### 2 5508, 70674, 15661, 14381, 89453 #### [facility] [address] [facility] [place] [address], [facility] TROPONIN-Ion 08-06-2020 Troponin I.cardiac [Mass/Vol] 42.94 ng/mL Critically high 0.00-0.04 [facility] Comment on above: Result Comment: M-HI EVIOUS CRITICAL RESULT REFERENCE RANGES: 0.00 - 0.04 ng/ml NORMAL 0.05 - 0.50 ng/ml INDETERMINATE > 0.50 ng/ml CONSISTENT WITH AN M.I. Performed By: #### 2 5508, 47314, 55052, 79461, 06679 #### [facility] [address] [place] [address], [facility] Troponin I.cardiac [Mass/Vol] 46.69 ng/mL Critically high 0.00-0.04 [facility] Comment on above: Order Comment: No: D o not add to previous draw Result Comment: M-HI EVIOUS CRITICAL RESULT REFERENCE RANGES: 0.00 - 0.04 ng/ml NORMAL 0.05 - 0.50 ng/ml INDETERMINATE > 0.50 ng/ml CONSISTENT WITH AN M.I. Performed By: #### 3 5200 ####[facility] UFH HEPARIN ASSAYon 08-07-19 UNFRACTIONATED HEPARIN 0.34 IU/mL Normal 0.30-0.70 [facility] Comment on above: Order Comment: No: D o not add to previous draw Result Comment: [place] roxaban and Apixaban will interfere with the anti Xa assay used to monitor UFH and LMWH. Performed By: #### 6 1405 #### [facility] [address] [place] [address], [facility] CHLORIDE URon 08-05-2020 Chloride [Moles/Vol] 26.0 mmol/L Normal [facility] Comment on above: Order Comment: Yes: Add to Previous draw if able Result Comment: Ther e are no established reference values for random urine specimens Performed By: #### 2 5508, 54058, 23598, 06928, 69766 #### [facility] [address] [place] [address], [facility] COMP METABOLIC PANELon 08-05 Albumin [Mass/Vol] 3.0 g/dL Low 3.5-5.7 [facility] Comment on above: Order Comment: Yes: Add to Previous draw if able Performed By: #### 2 5508, 52996, 93850, 27098, 12689 #### [facility] [address] [place] [id number], [facility] ALKALINE PHOSPH 78 IU/L Normal 34-104 [facility] Comment on above: Order Comment: Yes: Add to Previous draw if able Performed By: #### 2 5508, 06851, 73169, 20306, 63139 #### [facility] [address] [place] [address], [facility] ALT [Catalytic activity/Vol] 35 U/L Normal 7-52 [facility] Comment on above: Order Comment: Yes: Add to Previous draw if able Performed By: #### 2 5508, 29022, 68351, 50883, 36598 #### [facility] [address] [place] [address], [facility] AST [Catalytic activity/Vol] 54 U/L High 13-39 [facility] Comment on above: Order Comment: Yes: Add to Previous draw if able Performed By: #### 2 5508, 72858, 21113, 36283, 20256 #### [facility] [address] [place] [id number], [facility] Bilirubin [Mass/Vol] 1.0 mg/dL Normal 0.3-1.0 [facility] Comment on above: Order Comment: Yes: Add to Previous draw if able Performed By: #### 2 5508, 29850, 92437, 50933, 41240 #### [facility] [address] [place] [id number], [place] Calcium [Mass/Vol] 8.2 mg/dL Low 8.6-10.3 [facility] Comment on above: Order Comment: Yes: Add to Previous draw if able Performed By: #### 2 5508, 93127, 43247, 88964, 41949 #### [facility] [address] [place] [address], [place] Chloride [Moles/Vol] 105 mmol/L Normal 98-107 [facility] Comment on above: Order Comment: Yes: Add to Previous draw if able Performed By: #### 2 5508, 15862, 01659, 71432, 48293 #### [facility] [address] [place] [address], [place] CO2 [Moles/Vol] 19 mmol/L Low 21-31 [facility] Comment on above: Order Comment: Yes: Add to Previous draw if able Performed By: #### 2 5508, 78708, 95614, 42208, 63845 #### [facility] [address] [place] [address], [place] Creatinine [Mass/Vol] 0.89 mg/dL Normal 0.70-1.30 [facility] Comment on above: Order Comment: Yes: Add to Previous draw if able Performed By: #### 2 5508, 77693, 26937, 60446, 51919 #### [facility] [address] [place] [address], [place] GFR/1.73 sq M.predicted among blacks MDRD (S/P/Bld) [Vol rate/Area] mL/min/{1.73_m2} Normal >60 [facility] Comment on above: Order Comment: Yes: Add to Previous draw if able Performed By: #### 2 5508, 28764, 75305, 69671, 03674 #### [facility] [address] [place] [address], [place] GFR/1.73 sq M.predicted among non-blacks MDRD (S/P/Bld) [Vol rate/Area] mL/min/{1.73_m2} Normal >60 [facility] Comment on above: Order Comment: Yes: Add to Previous draw if able Performed By: #### 2 5508, 92273, 87561, 27126, 43952 #### [facility] [address] [place] [address], [place] Glucose [Mass/Vol] 174 mg/dL High 70-100 [facility] Comment on above: Order Comment: Yes: Add to Previous draw if able Performed By: #### 2 5508, 47472, 88556, 60062, 79886 #### [facility] [address] [place] [address], [place] Potassium [Moles/Vol] 4.9 mmol/L Normal 3.5-5.1 [facility] Comment on above: Order Comment: Yes: Add to Previous draw if able Performed By: #### 2 5508, 34418, 80609, 65850, 45151 #### [facility] [address] [place] [address], [place] Protein [Mass/Vol] 5.5 g/dL Low 6.0-8.3 [facility] Comment on above: Order Comment: Yes: Add to Previous draw if able Performed By: #### 2 5508, 64705, 27750, 23394, 69233 #### [facility] [address] [place] [address], [place] Sodium [Moles/Vol] 136 mmol/L Normal 136-145 [facility] Comment on above: Order Comment: Yes: Add to Previous draw if able Performed By: #### 2 5508, 70297, 96627, 96735, 12158 #### [facility] [address] [place] [address], [place] Urea nitrogen [Mass/Vol] 35 mg/dL High 7-25 [facility] Comment on above: Order Comment: Yes: Add to Previous draw if able Performed By: #### 2 5508, 43889, 20100, 22046, 85437 #### [facility] [address] [place] [address], [place] LIVER BATTERYon 04-21-2021 Albumin [Mass/Vol] 3.2 g/dL Low 3.5-5.7 [facility] Comment on above: Performed By: #### 2 5508, 04107, 87310, 76028, 36871 #### [facility] [address] [place] [address], [place] ALKALINE PHOSPH 84 IU/L Normal 34-104 [facility] Comment on above: Performed By: #### 2 5508, 53792, 78303, 21005, 13992 #### [facility] [address] [place] [address], [place] ALT [Catalytic activity/Vol] 40 U/L Normal 7-52 [facility] Comment on above: Performed By: #### 2 5508, 20195, 08291, 44375, 13728 #### [facility] [address] [place] [address], [place] AST [Catalytic activity/Vol] 36 U/L Normal 13-39 [facility] Comment on above: Performed By: #### 2 5508, 86673, 78528, 51004, 87251 #### [facility] [address] [place] [address], [place] Bilirubin [Mass/Vol] 0.9 mg/dL Normal 0.3-1.0 [facility] Comment on above: Performed By: #### 2 8, 78965, 25203, 38674, 54015 #### [facility] [address] [place] [address], [place] Bilirubin.direct [Mass/Vol] 0.3 mg/dL High 0.0-0.2 [facility] Comment on above: Performed By: #### 2 5508, 68217, 80305, 89794, 73524 #### [facility] [address] [place] [address], [place] Protein [Mass/Vol] 5.9 g/dL Low 6.0-8.3 [facility] Comment on above: Performed By: #### 2 5508, 83445, 85339, 09857, 68361 #### [address] PORTABLE CHEST 1 VIEWon 07-17 PORTABLE CHEST 1 VIEW [facility] Department of Radiology [address] [place] [id number] Patient Name: VISHAL DUKE : 1960 Sex: M Age: Race: White Pt. Location: [address] [place] [address] Patient Status: I Ordered Date: 08/05/2020 1:35:00 [...] reports Electronically signed: Mauricio Koo. Transcribed by: [email or web address], User Resident: ELADIA CABRERA Electronically Signed by: MAURICIO KOO @ 08/05/2020 02:08 AM I personally read this/these film(s) with this resident Normal [facility] Comment on above: Order Comment: Yes: Add to Previous draw if able POTASSIUM URon 08-05-2020 Potassium [Moles/Vol] 61.0 mmol/L Normal [facility] Comment on above: Order Comment: Yes: Add to Previous draw if able Result Comment: Ther e are no established reference values for random urine specimens Performed By: #### 2 5508, 00950, 08870, 72328, 49347 #### [facility] [address] PROCALCITONINon 08-05-2020 PROCALCITONIN 0.54 ng/mL High 0.00-0.10 [facility] Comment on above: Order Comment: Yes: [...] initial PCT<0.5ng/mL Performed By: #### 2 5508, 01894, 61711, 26438, 86220 #### [facility] 3000 [facility]. [address] SODIUM URINE RANDOMon 2020 Sodium (U) [Moles/Vol] 54 mmol/L Normal [facility] Comment on above: Order Comment: Yes: Add to Previous draw if able Result Comment: Ther e are no established reference values for random urine specimens Performed By: #### 2 5508, 25997, 69985, 25603, 72864 #### [facility] [address] TACROLIMUSon 08-05-2020 Tacrolimus (Bld) [Mass/Vol] 11.2 ng/mL Normal 5.0-20.0 [facility] Comment on above: Order Comment: Unkno wn Result Comment: The [employer] Tacrolimus assay is a delayed one-step immunoassay for the quantitative determination of tacrolimus in human whole blood using the chemiluminescent microparticle immunoassay (CMIA) technology with flexible assay protocols, referred to as Chemiflex. Performed By: #### 2 5508, 78252, 95597, 17612, 94242 #### [facility] [address] [facility] [address] TROPONIN-Ion 08-05-2020 Troponin I.cardiac [Mass/Vol] 39.61 ng/mL Critically high 0.00-0.04 [facility] Comment on above: Order Comment: Yes: Add to Previous draw if able Result Comment: M-HI EVIOUS CRITICAL RESULT REFERENCE RANGES: 0.00 - 0.04 ng/ml NORMAL 0.05 - 0.50 ng/ml INDETERMINATE > 0.50 ng/ml CONSISTENT WITH AN M.I. Performed By: #### 2 5508, 79767, 63764, 48189, 71395 #### [facility] [address] [place] [address], [facility] Troponin I.cardiac [Mass/Vol] 36.67 ng/mL Critically high 0.00-0.04 [facility] Comment on above: Order Comment: No: D o not add to previous draw Result Comment: M-HI EVIOUS CRITICAL RESULT REFERENCE RANGES: 0.00 - 0.04 ng/ml NORMAL 0.05 - 0.50 ng/ml INDETERMINATE > 0.50 ng/ml CONSISTENT WITH AN M.I. Performed By: #### 2 5508, 01901, 43917, 56482, 41513 #### [facility] [address] [place] [address], [facility] Troponin I.cardiac [Mass/Vol] 2.03 ng/mL Critically high 0.00-0.04 [facility] Comment on above: Order Comment: Yes: Add to Previous draw if able Result Comment: M-TR OPONIN INITIAL CRITICAL HIGH; RESPUN AND RETESTED M-CRITICAL RESULT(S) REVIEWED, CALLED TO AND READ BACK BY ROSA M COTA RN AT 0902 REFERENCE RANGES: 0.00 - 0.04 ng/ml NORMAL 0.05 - 0.50 ng/ml INDETERMINATE > 0.50 ng/ml CONSISTENT WITH AN M.I. Performed By: #### 2 5508, 50242, 59669, 85905, 57891 #### [facility] [address] [place] [address], [place] Troponin I.cardiac [Mass/Vol] 0.03 ng/mL Normal 0.00-0.04 [facility] Comment on above: Order Comment: Yes: Add to Previous draw if able Result Comment: REFE RENCE RANGES: 0.00 - 0.04 ng/ml NORMAL 0.05 - 0.50 ng/ml INDETERMINATE > 0.50 ng/ml CONSISTENT WITH AN M.I. Performed By: #### 2 5508, 57111, 74396, 96758, 01918 #### [facility] [address] [place] [address], [place] UFH HEPARIN ASSAYon 04-21-20 21 UNFRACTIONATED HEPARIN 0.37 IU/mL Normal 0.30-0.70 [facility] Comment on above: Result Comment: [place] roxaban and Apixaban will interfere with the anti Xa assay used to monitor UFH and LMWH. Performed By: #### 3 0477 ####[facility] UNFRACTIONATED HEPARIN 0.17 IU/mL Low 0.30-0.70 [facility] Comment on above: Result Comment: [place] roxaban and Apixaban will interfere with the anti Xa assay used to monitor UFH and LMWH. Performed By: #### 6 1405 #### [facility] [address] COMP METABOLIC PANELon 08-04 Albumin [Mass/Vol] 3.1 g/dL Low 3.5-5.7 [facility] Comment on above: Order Comment: Yes: Add to Previous draw if able Performed By: #### 2 5508, 00865, 33145, 11492, 02290 #### [facility] [address] [place] [id number], [facility] ALKALINE PHOSPH 86 IU/L Normal 34-104 [facility] Comment on above: Order Comment: Yes: Add to Previous draw if able Performed By: #### 2 5508, 65124, 01171, 11715, 51735 #### [facility] [address] [place] [id number], [facility] ALT [Catalytic activity/Vol] 47 U/L Normal 7-52 [facility] Comment on above: Order Comment: Yes: Add to Previous draw if able Performed By: #### 2 5508, 50171, 64894, 73625, 05854 #### [facility] [address] [place] [address], [place] AST [Catalytic activity/Vol] 45 U/L High 13-39 [facility] Comment on above: Order Comment: Yes: Add to Previous draw if able Performed By: #### 2 5508, 77418, 59666, 89184, 95446 #### [facility] [address] [place] [address], [place] Bilirubin [Mass/Vol] 0.5 mg/dL Normal 0.3-1.0 [facility] Comment on above: Order Comment: Yes: Add to Previous draw if able Performed By: #### 2 5508, 58882, 77165, 70557, 57721 #### [facility] [address] [place] [address], [place] Calcium [Mass/Vol] 8.4 mg/dL Low 8.6-10.3 [facility] Comment on above: Order Comment: Yes: Add to Previous draw if able Performed By: #### 2 5508, 34498, 81981, 35346, 40881 #### [facility] [address] [place] [address], [place] Chloride [Moles/Vol] 102 mmol/L Normal 98-107 [facility] Comment on above: Order Comment: Yes: Add to Previous draw if able Performed By: #### 2 5508, 38056, 17992, 36888, 08592 #### [facility] [address] [place] [address], [place] CO2 [Moles/Vol] 24 mmol/L Normal 21-31 [facility] Comment on above: Order Comment: Yes: Add to Previous draw if able Performed By: #### 2 5508, 42952, 40634, 68091, 64291 #### [facility] [address] [place] [address], [place] Creatinine [Mass/Vol] 1.04 mg/dL Normal 0.70-1.30 [facility] Comment on above: Order Comment: Yes: Add to Previous draw if able Performed By: #### 2 5508, 54722, 43641, 05694, 18440 #### [facility] [address] [place] [address], [place] GFR/1.73 sq M.predicted among blacks MDRD (S/P/Bld) [Vol rate/Area] mL/min/{1.73_m2} Normal >60 [facility] Comment on above: Order Comment: Yes: Add to Previous draw if able Performed By: #### 2 5508, 77977, 94078, 82186, 33069 #### [facility] [address] [place] [address], [place] GFR/1.73 sq M.predicted among non-blacks MDRD (S/P/Bld) [Vol rate/Area] mL/min/{1.73_m2} Normal >60 [facility] Comment on above: Order Comment: Yes: Add to Previous draw if able Performed By: #### 2 5508, 36927, 34245, 59482, 11297 #### [facility] [address] [place] [address], [place] Glucose [Mass/Vol] 196 mg/dL High 70-100 [facility] Comment on above: Order Comment: Yes: Add to Previous draw if able Performed By: #### 2 5508, 40754, 97129, 14788, 23317 #### [facility] [address] [place] [address], [place] Potassium [Moles/Vol] 4.6 mmol/L Normal 3.5-5.1 [facility] Comment on above: Order Comment: Yes: Add to Previous draw if able Performed By: #### 2 5508, 83243, 05871, 42085, 88397 #### [facility] [address] [place] [address], [place] Protein [Mass/Vol] 5.8 g/dL Low 6.0-8.3 [facility] Comment on above: Order Comment: Yes: Add to Previous draw if able Performed By: #### 2 5508, 60579, 80124, 93255, 21946 #### [facility] [address] [place] [address], [place] Sodium [Moles/Vol] 135 mmol/L Low 136-145 [facility] Comment on above: Order Comment: Yes: Add to Previous draw if able Performed By: #### 2 5508, 29553, 25568, 55979, 16395 #### [facility] [address] Urea nitrogen [Mass/Vol] 38 mg/dL High 7-25 [facility] Comment on above: Order Comment: Yes: Add to Previous draw if able Performed By: #### 2 5508, 95591, 69425, 46436, 28555 #### [facility] [address] CPKon 08-04-2020 CK [Catalytic activity/Vol] 80 U/L Normal 30-223 [facility] Comment on above: Performed By: #### 2 5508, 33233, 92672, 04617, 83532 #### [facility] [address] [place] [address], [facility] LDH BLOODon 08-04-2020 LDH 569 Units/L High 140-271 [facility] Comment on above: Performed By: #### 2 5508, 82532, 76510, 59474, 14028 #### [facility] [address] MAGNESIUM BLOODon 08-04-2020 Magnesium [Mass/Vol] 2.3 mg/dL Normal 1.9-2.7 [facility] Comment on above: Performed By: #### 2 5508, 58659, 15560, 61630, 62719 #### [facility] [address] [place] [address], [facility] TACROLIMUSon 08-04-2020 Tacrolimus (Bld) [Mass/Vol] 17.4 ng/mL Normal 5.0-20.0 [facility] Comment on above: Order Comment: Yes: Add to Previous draw if able Result Comment: The [employer] Tacrolimus assay is a delayed one-step immunoassay for the quantitative determination of tacrolimus in human whole blood using the chemiluminescent microparticle immunoassay (CMIA) technology with flexible assay protocols, referred to as Chemiflex. Performed By: #### 2 5508, 50914, 06040, 61800, 99908 #### [facility] [address] TROPONIN-Ion 08-04-2020 Troponin I.cardiac [Mass/Vol] 0.01 ng/mL Normal 0.00-0.04 [facility] Comment on above: Result Comment: REFE RENCE RANGES: 0.00 - 0.04 ng/ml NORMAL 0.05 - 0.50 ng/ml INDETERMINATE > 0.50 ng/ml CONSISTENT WITH AN M.I. Performed By: #### 2 5508, 26081, 26782, 10530, 53330 #### [facility] [address] *SARS-CoV-2 COVID-19on 08-03 SARS-CoV-2 (COVID-19) RNA ADELINE+probe Ql (Unsp spec) Detected Critically abnormal Not Detected [facility] Comment on above: Result Comment: Call ed Lara Reid on 08-03 at 1020. Performed By: #### 2 5508, 19059, 36755, 60574, 38057 #### [facility] [address] BASIC METABOLIC PANELon 07-16 Calcium [Mass/Vol] 8.4 mg/dL Low 8.6-10.3 [facility] Comment on above: Order Comment: No: D o not add to previous draw Pt in bath room askme to come back Performed By: #### 3 1880 #### [facility] [address] [facility] [place] [address], [facility] Chloride [Moles/Vol] 97 mmol/L Low 98-107 [facility] Comment on above: Order Comment: No: D o not add to previous draw Pt in bath room askme to come back Performed By: #### 3 5200 #### [facility] [address] [place] [address], [facility] CO2 [Moles/Vol] 22 mmol/L Normal 21-31 [facility] Comment on above: Order Comment: No: D o not add to previous draw Pt in bath room askme to come back Performed By: #### 3 5200 #### [facility] [address] [place] [address], [place] Creatinine [Mass/Vol] 0.90 mg/dL Normal 0.70-1.30 [facility] Comment on above: Order Comment: No: D o not add to previous draw Pt in bath room askme to come back Performed By: #### 3 5200 #### [facility] [address] [place] [address], [facility] GFR/1.73 sq M.predicted among blacks MDRD (S/P/Bld) [Vol rate/Area] mL/min/{1.73_m2} Normal >60 [facility] Comment on above: Order Comment: No: D o not add to previous draw Pt in bath room askme to come back Performed By: #### 3 5200 #### [facility] [address] [place] [address], [facility] GFR/1.73 sq M.predicted among non-blacks MDRD (S/P/Bld) [Vol rate/Area] mL/min/{1.73_m2} Normal >60 [facility] Comment on above: Order Comment: No: D o not add to previous draw Pt in bath room askme to come back Performed By: #### 3 5200 #### [facility] [address] [place] [address], [place] Glucose [Mass/Vol] 167 mg/dL High 70-100 [facility] Comment on above: Order Comment: No: D o not add to previous draw Pt in bath room askme to come back Performed By: #### 3 5200 #### [facility] [address] Potassium [Moles/Vol] 4.4 mmol/L Normal 3.5-5.1 [facility] Comment on above: Order Comment: No: D o not add to previous draw Pt in bath room askme to come back Performed By: #### 3 5200 #### [facility] [address] Sodium [Moles/Vol] 131 mmol/L Low 136-145 [facility] Comment on above: Order Comment: No: D o not add to previous draw Pt in bath room askme to come back Performed By: #### 3 5200 #### [facility] [address] Urea nitrogen [Mass/Vol] 22 mg/dL Normal 7-25 [facility] Comment on above: Order Comment: No: D o not add to previous draw Pt in bath room askme to come back Performed By: #### 3 5200 #### [facility] [address] CBC W/DIFFon 08-03-2020 ABS IMM GRANS 0.1 10*3/uL Normal 0.0-0.2 [facility] Comment on above: Order Comment: No: D o not add to previous draw Performed By: #### 6 1405 #### [facility] [address] ABS NEUTROPHILS 4.8 10*3/uL Normal 1.6-7.6 [facility] Comment on above: Order Comment: No: D o not add to previous draw Performed By: #### 6 1405 #### [facility] [address] [place] [address], [facility] Basophils (Bld) [#/Vol] 0.0 10*3/uL Normal 0.0-0.2 [facility] Comment on above: Order Comment: No: D o not add to previous draw Performed By: #### 6 1405 #### [facility] [address] [place] [address], [facility] Basophils/100 WBC (Bld) 0.4 % Normal 0.0-1.0 [facility] Comment on above: Order Comment: No: D o not add to previous draw Performed By: #### 6 1405 #### [facility] [address] [place] [address], [facility] Eosinophils (Bld) [#/Vol] 0.0 10*3/uL Normal 0.0-0.5 [facility] Comment on above: Order Comment: No: D o not add to previous draw Performed By: #### 6 1405 #### [facility] [address] [place] [address], [facility] Eosinophils/100 WBC (Bld) 0.0 % Normal 0.0-6.0 [facility] Comment on above: Order Comment: No: D o not add to previous draw Performed By: #### 6 1405 #### [facility] [address] [place] [address], [facility] Erythrocyte distribution width (RBC) [Ratio] 13.6 % Normal 11.5-15.0 [facility] Comment on above: Order Comment: No: D o not add to previous draw Performed By: #### 6 1405 #### [facility] [address] [place] [address], [facility] Hematocrit (Bld) [Volume fraction] 45.6 % Normal 39.0-50.0 [facility] Comment on above: Order Comment: No: D o not add to previous draw Performed By: #### 6 1405 #### [facility] [address] [place] [address], [facility] Hemoglobin (Bld) [Mass/Vol] 15.9 g/dL Normal 13.0-17.0 [facility] Comment on above: Order Comment: No: D o not add to previous draw Performed By: #### 6 1405 #### [facility] [address] [place] [address], [facility] IMMATURE GRANS 0.9 % Normal 0.0-1.0 [facility] Comment on above: Order Comment: No: D o not add to previous draw Performed By: #### 6 1405 #### [facility] [address] [place] [address], [facility] Lymphocytes (Bld) [#/Vol] 0.4 10*3/uL Low 1.2-4.0 [facility] Comment on above: Order Comment: No: D o not add to previous draw Performed By: #### 6 1405 #### [facility] [address] [facility] [place] [address], [facility] Lymphocytes/100 WBC (Bld) 7.1 % Low 20.0-45.0 [facility] Comment on above: Order Comment: No: D o not add to previous draw Performed By: #### 6 1405 #### [facility] [address] [place] [address], [facility] MCH (RBC) [Entitic mass] 29.5 pg Normal 27.0-33.0 [facility] Comment on above: Order Comment: No: D o not add to previous draw Performed By: #### 6 1405 #### [facility] [address] [place] [address], [facility] MCHC (RBC) [Mass/Vol] 34.9 g/dL Normal 32.0-35.0 [facility] Comment on above: Order Comment: No: D o not add to previous draw Performed By: #### 6 1405 #### [facility] [address] [place] [place] [address], [facility] MCV (RBC) [Entitic vol] 84.6 fL Normal 82.0-98.0 [facility] Comment on above: Order Comment: No: D o not add to previous draw Performed By: #### 6 1405 #### [facility] [address] [place] [address], [facility] Monocytes (Bld) [#/Vol] 0.2 10*3/uL Normal 0.1-1.0 [facility] Comment on above: Order Comment: No: D o not add to previous draw Performed By: #### 6 1405 #### [facility] [address] [place] [address], [facility] MONOS 4.2 % Low 5.0-12.0 [facility] Comment on above: Order Comment: No: D o not add to previous draw Performed By: #### 6 1405 #### [facility] [address] [place] [address], [facility] Neutrophils/100 WBC (Bld) 87.4 % High 40.0-72.0 [facility] Comment on above: Order Comment: No: D o not add to previous draw Performed By: #### 6 1405 #### [facility] [address] [facility] [address], [facility] Nucleated RBC/100 WBC (Bld) [Ratio] 0 % Normal 0-0 [facility] Comment on above: Order Comment: No: D o not add to previous draw Performed By: #### 6 1405 #### [facility] [address] [facility] [place] [address], [facility] PLAT CNT 286 10*3/uL Normal 150-400 [facility] Comment on above: Order Comment: No: D o not add to previous draw Performed By: #### 6 1405 #### [facility] [address] [place] [address], [place] RBC (Bld) [#/Vol] 5.39 10*6/uL Normal 4.20-5.70 [facility] Comment on above: Order Comment: No: D o not add to previous draw Performed By: #### 6 1405 #### [facility] [address] [place] [address], [place] WBC (Bld) [#/Vol] 5.47 10*3/uL Normal 4.00-10.60 [facility] Comment on above: Order Comment: No: D o not add to previous draw Performed By: #### 6 1405 #### [facility] [address] [facility] CPKon 08-03-2020 CK [Catalytic activity/Vol] 168 U/L Normal 30-223 [facility] Comment on above: Order Comment: No: D o not add to previous draw Pt in bath room askme to come back Performed By: #### 3 5200 #### [facility] [address] [facility]. [address] D DIMER TESTon 08-03-2020 D-DIMER TEST 5.09 mcg/mL FEU High 0.27-0.49 [facility] Comment on above: Order Comment: No: [...] REPEATED AND CONFIRMED Performed By: #### 5 8589 ####[facility] [facility] FERRITINon 08-03-2020 Ferritin [Mass/Vol] 1079 ng/mL High 24-336 [facility] Comment on above: Order Comment: No: D o not add to previous draw Pt in bath room askme to come back Performed By: #### 3 5200 #### [facility] [address] [place] [place] [address], [facility] LDH BLOODon 08-03-2020 LDH 623 Units/L High 140-271 [facility] Comment on above: Order Comment: No: D o not add to previous draw Pt in bath room askme to come back Performed By: #### 3 5200 #### [facility] [address] [place] [address], [facility] LIVER BATTERYon 08-03-2020 Albumin [Mass/Vol] 3.6 g/dL Normal 3.5-5.7 [facility] Comment on above: Order Comment: Yes: Add to Previous draw if able Performed By: #### 2 5508, 77530, 61246, 13119, 88564 #### [facility] [address] [place] [address], [place] ALKALINE PHOSPH 91 IU/L Normal 34-104 [facility] Comment on above: Order Comment: Yes: Add to Previous draw if able Performed By: #### 2 5508, 94049, 24195, 19229, 11680 #### [facility] [address] [place] [address], [place] ALT [Catalytic activity/Vol] 34 U/L Normal 7-52 [facility] Comment on above: Order Comment: Yes: Add to Previous draw if able Performed By: #### 2 5508, 31679, 68077, 49310, 40867 #### [facility] [address] [place] [address], [facility] AST [Catalytic activity/Vol] 40 U/L High 13-39 [facility] Comment on above: Order Comment: Yes: Add to Previous draw if able Performed By: #### 2 5508, 03766, 90840, 67088, 64989 #### [facility] [address] [place] [address], [place] Bilirubin [Mass/Vol] 0.7 mg/dL Normal 0.3-1.0 [facility] Comment on above: Order Comment: Yes: Add to Previous draw if able Performed By: #### 2 5508, 89583, 31025, 17610, 00937 #### [facility] [address] [place] [address], [place] Bilirubin.direct [Mass/Vol] 0.1 mg/dL Normal 0.0-0.2 [facility] Comment on above: Order Comment: Yes: Add to Previous draw if able Performed By: #### 2 5508, 81842, 57279, 74984, 83401 #### [facility] [address] [facility] [place] [address], [facility] Protein [Mass/Vol] 6.3 g/dL Normal 6.0-8.3 [facility] Comment on above: Order Comment: Yes: Add to Previous draw if able Performed By: #### 2 5508, 68898, 18639, 83552, 12207 #### [facility] [address] [facility] [place] [address], [facility] MAGNESIUM BLOODon 08-03-2020 Magnesium [Mass/Vol] 2.3 mg/dL Normal 1.9-2.7 [facility] Comment on above: Order Comment: No: D o not add to previous draw Pt in bath room askme to come back Performed By: #### 3 5200 #### [facility] [address] [facility] [place] [address], [facility] PHOSPHORUS BLOODon Phosphate [Mass/Vol] 3.6 mg/dL Normal 2.5-5.0 [facility] Comment on above: Order Comment: No: D o not add to previous draw Pt in bath room askme to come back Performed By: #### 3 5200 #### [facility] [address] [place], [place] [id number] [place] [address] PORTABLE CHEST 1 VIEWon 07-16 PORTABLE CHEST 1 VIEW [facility] Department of Radiology [address] [place] [id number] Patient Name: VISHAL DUKE : 1960 Sex: M Age: Race: White Pt. Location: [id number] Patient Status: I Ordered Date: 08/03/2020 8:00:00 [...] pneumonia. Electronically signed: Dariela Vincent. Transcribed by: [email or web address], User Resident: Electronically Signed by: DARIELA VINCENT @ 08/03/2020 07:52 AM Normal [facility] Comment on above: Order Comment: No: D o not add to previous draw CV'D BY IMM [facility] AT 1240 PROCALCITONINon 08-03-2020 PROCALCITONIN 0.31 ng/mL High 0.00-0.10 [facility] Comment on above: Order Comment: No: [...] initial PCT<0.5ng/mL Performed By: #### 2 5508, 95835, 73486, 62276, 09283 #### [facility] [address] [place] [address], [facility] TACROLIMUSon 08-03-2020 Tacrolimus (Bld) [Mass/Vol] 24.9 ng/mL High 5.0-20.0 [facility] Comment on above: Order Comment: Yes: Add to Previous draw if able Result Comment: The [employer] Tacrolimus assay is a delayed one-step immunoassay for the quantitative determination of tacrolimus in human whole blood using the chemiluminescent microparticle immunoassay (CMIA) technology with flexible assay protocols, referred to as Chemiflex. Performed By: #### 2 5508, 68931, 45446, 29252, 14489 #### [facility] [address] [place] [address], [facility] TROPONIN-Ion 08-03-2020 Troponin I.cardiac [Mass/Vol] 0.01 ng/mL Normal 0.00-0.04 [facility] Comment on above: Order Comment: No: D o not add to previous draw Pt in bath room askme to come back Result Comment: REFE RENCE RANGES: 0.00 - 0.04 ng/ml NORMAL 0.05 - 0.50 ng/ml INDETERMINATE > 0.50 ng/ml CONSISTENT WITH AN M.I. Performed By: #### 3 5200 #### [facility] [address] [place] [address], [place] URINALYSIS REFLEXon 08-04-19 21 Appearance (U) CLEAR Normal CLEAR [facility] Comment on above: Order Comment: No: D o not add to previous draw CV'D BY IMM [facility] AT 1240 Performed By: #### 6 1405 #### [facility] [address] [place] [address], [place] Bilirubin Ql (U) Negative Normal NEGATIVE [facility] Comment on above: Order Comment: No: D o not add to previous draw CV'D BY I[facility] AT 1240 Performed By: #### 6 1405 #### [facility] [address] [place] [address], [place] Color (U) YELLOW Normal YELLOW [facility] Comment on above: Order Comment: No: D o not add to previous draw CV'D BY I[facility] AT 1240 Performed By: #### 6 1405 #### [facility] [address] [place] [address], [place] EPIS NONE SEEN Normal FEW,OCC,NO NE SEEN [facility] Comment on above: Order Comment: No: D o not add to previous draw CV'D BY IMM [facility] AT 1240 Performed By: #### 6 1405 #### [facility] [address] [place] [address], [place] Glucose Ql (U) Negative Normal NEGATIVE [facility] Comment on above: Order Comment: No: D o not add to previous draw CV'D BY IMM [facility] AT 1240 Performed By: #### 6 1405 #### [facility] [address] [place] [address], [place] Hemoglobin Ql (U) TRACE, RESULTS CHECKED Abnormal NEGATI VE [facility] Comment on above: Order Comment: No: D o not add to previous draw CV'D BY IMM [facility] AT 1240 Performed By: #### 6 1405 #### [facility] [address] [place] [address], [place] KETONE Negative Normal NEGATIVE [facility] Comment on above: Order Comment: No: D o not add to previous draw CV'D BY IMM [facility] AT 1240 Performed By: #### 6 1405 #### [facility] [address] [place] [address], [place] LEUK MARIA A Negative Normal NEGATIVE [facility] Comment on above: Order Comment: No: D o not add to previous draw CV'D BY IMM [facility] AT 1240 Performed By: #### 6 1405 #### [facility] [address] [place] [address], [place] Nitrite Ql (U) Negative Normal NEGATIVE [facility] Comment on above: Order Comment: No: D o not add to previous draw CV'D BY IMM LAB AT [facility]0 Performed By: #### 6 1405 #### [facility] [address] [place] [address], [facility] pH (U) 6.0 [pH] Normal 5.0-8.0 [facility] Comment on above: Order Comment: No: D o not add to previous draw CV'D BY IMM [facility] AT 1240 Performed By: #### 6 1405 #### [facility] [address] [place] [address], [facility] Protein Ql (U) Negative Normal NEGATIVE [facility] Comment on above: Order Comment: No: D o not add to previous draw CV'D BY IMM [facility] AT 1240 Performed By: #### 6 1405 #### [facility] [address] [place] [address], [place] RBC 3-5 Abnormal NONE SEEN [facility] Comment on above: Order Comment: No: D o not add to previous draw CV'D BY IMM LAB AT [facility]0 Performed By: #### 6 1405 #### [facility] [address] [place] [address], [place] SPEC GRAV 1.017 Normal 1.015-1.02 0 [facility] Comment on above: Order Comment: No: D o not add to previous draw CV'D BY IMM LAB AT 1240 Performed By: #### 6 1405 #### [facility] [address] [place] [address], [facility] WBC UA 0-2 Abnormal NONE SEEN [facility] Comment on above: Order Comment: No: D o not add to previous draw CV'D BY IMM LAB AT 1240 Performed By: #### 6 1405 #### [facility] [address] [place] [address], [facility] Vital Signs Date Time Vital Sign Value Performing Clinician Facility 12-03-2024 13:53-0400 Body height 180.3 cm Rosa M Gonzales MD Work Phone: [facility] 12-03-2024 13:53-0400 Body mass index (BMI) [Ratio] 28.81 kg/m2 Rosa M Gonzales MD Work Phone: [facility] 12-03-2024 13:53-0400 Body weight 93.71 kg Rosa M Gonzales MD Work Phone: [facility] 12-03-2024 13:53-0400 Diastolic blood pressure 70 mm[Hg] Rosa M Gonzales MD Work Phone: [facility] Comment on above: laying down- 132/76 P 67, Sitting 110/70 P 64, Standing 104/72 P 76 12-03-2024 13:53-0400 Heart rate 65 /min Rosa M Gonzales MD Work Phone: [facility] 12-03-2024 13:53-0400 SaO2% (BldA) [Mass fraction] 94 % Rosa M Gonzales MD Work Phone: [facility] 12-03-2024 13:53-0400 Systolic blood pressure 122 mm[Hg] Rosa M Gonzales MD Work Phone: [facility] Comment on above: laying down- 132/76 P 67, Sitting 110/70 P 64, Standing 104/72 P 76 10-03-2024 11:26-0400 Body height 180.3 cm Rosa M Gonzales MD Work Phone: [facility] 10-03-2024 11:26-0400 Body mass index (BMI) [Ratio] 28.51 kg/m2 Rosa M Gonzales MD Work Phone: [facility] 10-03-2024 11:26-040 Body weight 92.72 kg Rosa M Gonzales MD Work Phone: [facility] 10-03-2024 11:26-0400 Diastolic blood pressure 66 mm[Hg] Rosa M Gonzales MD Work Phone: [facility] 10-03-2024 11:26-0400 Heart rate 64 /min Rosa M Gonzales MD Work Phone: [facility] 10-03-2024 11:26-0400 SaO2% (BldA) [Mass fraction] 93 % Rosa M Gonzales MD Work Phone: [facility] 10-03-2024 11:26-0400 Systolic blood pressure 120 mm[Hg] Rosa M Gonzales MD Work Phone: [facility] 06-14-2024 08:37-0500 Diastolic blood pressure 80 mm[Hg] Efren Centeno MD Work Phone: [facility] 06-14-2024 08:37-0500 Systolic blood pressure 134 mm[Hg] Efren Centeno MD Work Phone: [facility] 03-21-2024 15:17-0500 Body height 180.3 cm Rosa M Gonzales MD Work Phone: [facility] 03-21-2024 15:17-0500 Body mass index (BMI) [Ratio] 28.28 kg/m2 Rosa M Gonzales MD Work Phone: [facility] 03-21-2024 15:17-0500 Body weight 91.99 kg Rosa M Gonzales MD Work Phone: [facility] 03-21-2024 15:17-0500 Diastolic blood pressure 72 mm[Hg] Rosa M Gonzales MD Work Phone: [facility] 03-21-2024 15:17-0500 Heart rate 72 /min Rosa M Gonzales MD Work Phone: [facility] 03-21-2024 15:17-0500 SaO2% (BldA) [Mass fraction] 92 % Rosa M Gonzales MD Work Phone: [facility] 03-21-2024 15:17-0500 Systolic blood pressure 112 mm[Hg] Rosa M Gonzales MD Work Phone: [facility] 03-04-2024 13:54-0500 Blood Pressure Location Rejiraghavendra BROWER [facility] 03-04-2024 13:54-0500 Body temperature 98.6 [degF] Reji BROWER [facility] 03-04-2024 13:54-0500 Diastolic blood pressure 75 mm[Hg] Reji BROWER [facility] 03-04-2024 13:54-0500 Heart rate 67 /min Reji BROWER [facility] 03-04-2024 13:54-0500 Respiratory rate 18 /min Reji BROWER [facility] 03-04-2024 13:54-0500 Systolic blood pressure 119 mm[Hg] Reji BROWER [facility] 01-29-2024 15:10-0400 Body height 180.3 cm Nicki Velez NP Work Phone: [facility] 01-29-2024 15:10-0400 Body mass index (BMI) [Ratio] 27.89 kg/m2 Nicki Velez MANAGER RN CASE Work Phone: [facility] 01-29-2024 15:10-0400 Body weight 90.72 kg Nicki Velez MANAGER RN CASE Work Phone: [facility] 01-29-2024 15:10-0400 Diastolic blood pressure 64 mm[Hg] Nicki Velez MANAGER RN CASE Work Phone: [facility] 01-29-2024 15:10-0400 Heart rate 56 /min Nicki Velez MANAGER RN CASE Work Phone: [facility] 01-29-2024 15:10-0400 SaO2% (BldA) [Mass fraction] 95 % Nicki Velez MANAGER RN CASE Work Phone: [facility] 01-29-2024 15:10-0400 Systolic blood pressure 124 mm[Hg] Nicki Velez MANAGER RN CASE Work Phone: [facility] 01-26-2024 12:00-0400 Body height 180.3 cm Nicki Velez MANAGER RN CASE Work Phone: [facility] 01-26-2024 12:00-0400 Body mass index (BMI) [Ratio] 27.89 kg/m2 Nicki Velez MANAGER RN CASE Work Phone: [facility] 01-26-2024 12:00-0400 Body weight 90.72 kg Nicki Velez MANAGER RN CASE Work Phone: [facility] 01-26-2024 12:00-0400 Diastolic blood pressure 70 mm[Hg] Nicki Velez MANAGER RN CASE Work Phone: [facility] 01-26-2024 12:00-0400 Heart rate 69 /min Nicki Velez MANAGER RN CASE Work Phone: [facility] 01-26-2024 12:00-0400 SaO2% (BldA) [Mass fraction] 97 % Nicki Velez MANAGER RN CASE Work Phone: [facility] 01-26-2024 12:00-0400 Systolic blood pressure 120 mm[Hg] Nicki Velez MANAGER RN CASE Work Phone: [facility] 01-11-2024 10:35-0400 Diastolic blood pressure 75 mm[Hg] Schmidt Sarmini [facility] 01-11-2024 10:35-0400 Heart rate 60 /min Schmidt Sarmini [facility] 01-11-2024 10:35-0400 Mean blood pressure 88 mm[Hg] Schmidt Sarmini [facility] 01-11-2024 10:35-0400 Respiratory rate 18 /min Schmidt Sarmini [facility] 01-11-2024 10:35-0400 SaO2% (BldA) [Mass fraction] 93 % Schmidt Sarmini [facility] 01-11-2024 10:35-0400 Systolic blood pressure 114 mm[Hg] Schmidt Sarmini [facility] 01-11-2024 10:25-0400 Diastolic blood pressure 64 mm[Hg] Schmidt Sarmini [facility] 01-11-2024 10:25-0400 Heart rate 70 /min Schmidt Sarmini [facility] 01-11-2024 10:25-0400 Mean blood pressure 79 mm[Hg] Schmidt Sarmini [facility] 01-11-2024 10:25-0400 Respiratory rate 20 /min Schmidt Sarmini [facility] 01-11-2024 10:25-0400 SaO2% (BldA) [Mass fraction] 94 % Schmidt Sarmini [facility] 01-11-2024 10:25-0400 Systolic blood pressure 110 mm[Hg] Schmidt Sarmini [facility] 01-11-2024 10:10-0400 Body temperature 97.7 [degF] Schmidt Sarmini [facility] 01-11-2024 10:10-0400 Diastolic blood pressure 59 mm[Hg] Schmidt Sarmini [facility] 01-11-2024 10:10-0400 Heart rate 70 /min Schmidt Sarmini [facility] 01-11-2024 10:10-0400 Mean blood pressure 71 mm[Hg] Schmidt Sarmini [facility] 01-11-2024 10:10-0400 Respiratory rate 19 /min Schmidt Sarmini [facility] 01-11-2024 10:10-0400 SaO2% (BldA) [Mass fraction] 95 % Schmidt Sarmini [facility] 01-11-2024 10:10-0400 Systolic blood pressure 96 mm[Hg] Schmidt Sarmini [facility] 01-11-2024 10:05-0400 Respiratory rate 22 /min Schmidt Sarmini [facility] 01-11-2024 09:55-0400 Respiratory rate 22 /min Schmidt Sarmini [facility] 01-11-2024 08:46-0400 Blood Pressure Location Schmidt Sarmini [facility] 01-11-2024 08:46-0400 Body temperature 97.52 [degF] Schmidt Sarmini [facility] 12-25-2023 09:28-0400 Diastolic blood pressure 88 mm[Hg] Schmidt Sarmini [facility] 12-25-2023 09:28-0400 Mean blood pressure 107 mm[Hg] Schmidt Sarmini [facility] 12-25-2023 09:28-0400 Systolic blood pressure 146 mm[Hg] Schmidt Sarmini [facility] 12-25-2023 09:14-0400 Blood Pressure Location Schmidt Sarmini [facility] 12-25-2023 09:14-0400 Diastolic blood pressure 85 mm[Hg] Schmidt Sarmini [facility] 12-25-2023 09:14-0400 Heart rate 60 /min Schmidt Sarmini [facility] 12-25-2023 09:14-0400 Systolic blood pressure 152 mm[Hg] Schmidt Sarmini [facility] 01-17-2022 11:53-0400 Blood Pressure Location Reji BROWER [facility] 01-17-2022 11:53-0400 Diastolic blood pressure 81 mm[Hg] Reji BROWER [facility] 01-17-2022 11:53-0400 Heart rate 63 /min Reji BROWER [facility] 01-17-2022 11:53-0400 Respiratory rate 18 /min Reji BROWER [facility] 01-17-2022 11:53-0400 Systolic blood pressure 129 mm[Hg] Reji [facility] [facility] 04-23-2021 17:40-0500 Diastolic blood pressure 70 mm[Hg] Rosa M Gonzales Work Phone: [facility] DO Work Phone: 04-23-2021 17:40-0500 Systolic blood pressure 138 mm[Hg] Rosa M Gonzales Work Phone: [facility] DO Work Phone: 04-23-2021 15:22-0500 Body height 180.34 cm Rosa M Gonzales Work Phone: [facility] DO Work Phone: 04-23-2021 15:22-0500 Body mass index (BMI) [Ratio] 29.57 kg/m2 Rosa M Gonzales Work Phone: [facility] DO Work Phone: 04-23-2021 15:22-0500 Body surface area Derived from formula 2.16 m2 Rosa M Gonzales Work Phone: [facility] DO Work Phone: 04-23-2021 15:22-0500 Body weight 96.16 kg Rosa M Gonzales Work Phone: [facility] DO Work Phone: 04-23-2021 15:22-0500 Diastolic blood pressure 77 mm[Hg] Rosa M Gonzales Work Phone: [facility] DO Work Phone: 04-23-2021 15:22-0500 Heart rate 61 /min Rosa M Gonzales Work Phone: [facility] 250 DO Work Phone: 04-23-2021 15:22-0500 Systolic blood pressure 142 mm[Hg] Rosa M Gonzales Work Phone: [facility] 250 DO Work Phone: Encounters Encounter Date Encounter Type Care Provider Facility Start: 12-04-2024 End: 12-04-2024 Refill Rosa M Gonzales MD Work Phone: [facility] Comment on above: History of kidney tr ansplant (HCC) Start: 12-03-2024 End: 12-03-2024 Bamboo flowsmaddie Gonzales MD Work Phone: [facility] Start: 12-03-2024 End: 12-03-2024 Bampandao don Gonzales MD Work Phone: [facility] Start: 12-03-2024 End: 12-03-2024 Office outpatient visit 25 minutes Rosa M Gonzales MD Work Phone: [facility] Comment on above: Dizziness (Primary D x); Orthostatic hypotension; Gastroesophageal reflux disease without esophagitis Start: 12-03-2024 End: 12-03-2024 ambulatory ROSA M GONZALES Not Available Start: 11-15-2024 End: 11-15-2024 Clinisync Result Encounter Generic External Data Provider [facility] Unsolicited Start: 11-15-2024 End: 11-15-2024 Clinisync Result Encounter Generic External Data Provider [facility] External Department Unsolicited Start: 11-04-2024 End: 11-04-2024 Bamboo flowsheet Alicia Fishman MD Work Phone: [facility] Start: 11-04-2024 End: 11-04-2024 Bamboo flowsheet Alicia Fishman MD Work Phone: [facility] Start: 11-04-2024 End: 11-04-2024 Office outpatient visit 15 minutes Alicia Fishman MD Work Phone: [facility] Comment on above: Seborrheic keratosis (Primary Dx); Lentigines; History of basal cell carcinoma; Actinic keratosis; Neoplasm of unspecified behavior of bone, soft tissue, and skin; Seborrheic keratosis, inflamed Start: 11-04-2024 End: 11-04-2024 ambulatory ALICIA FISHMAN Not Available Start: 10-22-2024 End: 10-22-2024 ambulatory [facility] Start: 10-17-2024 End: 10-17-2024 ambulatory MACRINA [facility] Start: 10-17-2024 End: 10-17-2024 ambulatory EHAB [facility] Start: 10-15-2024 End: 10-15-2024 Clinisync Result Encounter Generic External Data Provider [facility] External Department Unsolicited Start: 10-15-2024 End: 10-15-2024 Clinisync Result Encounter Generic External Data Provider [facility] External Department Unsolicited Start: 10-14-2024 End: 10-14-2024 Clinisync Result Encounter Generic External Data Provider [facility] External Department Unsolicited Start: 10-14-2024 End: 10-14-2024 Clinisync Result Encounter Generic External Data Provider [facility] External Department Unsolicited Start: 10-03-2024 End: 10-03-2024 Bamboo flowsheet Rosa M Gonzales MD Work Phone: [facility] Start: 10-03-2024 End: 10-03-2024 Bamboo flowsheet Rosa M Gonzales MD Work Phone: [facility] Start: 10-03-2024 End: 10-03-2024 Telephone encounter Rosa M Gonzales MD Work Phone: [facility] Start: 10-03-2024 End: 10-03-2024 Patient encounter status Rosa M Gonzales MD Work Phone: [facility] Work Phone: Start: 10-03-2024 End: 10-03-2024 Periodic preventive med est patient 65yrs& older Rosa M Gonzales MD Work Phone: [facility] Comment on above: Wellness examination (Primary Dx); Simple chronic bronchitis (HCC); Post-COVID chronic dyspnea; Chronic systolic congestive heart failure (HCC); Essential hypertension ; End-stage renal disease (HCC); PKD (polycystic kidney disease); Stage 3a chronic kidney disease (CMS-HCC); History of kidney transplant (HCC); Dizziness; Type 2 diabetes mellitus with diabetic cataract (HCC); Type 2 diabetes mellitus with diabetic polyneuropathy (HCC); Cardiomyopathy, unspecified (HCC) Start: 10-03-2024 End: 10-03-2024 ambulatory ROSA M GONZALES Not Available Start: 09-18-2024 End: 09-18-2024 ambulatory [facility] Start: 09-10-2024 End: 09-10-2024 Clinisync Result Encounter Generic External Data Provider [facility] External Department Unsolicited Start: 09-10-2024 End: 09-10-2024 Clinisync Result Encounter Generic External Data Provider [facility] External Department Unsolicited Start: 08-09-2024 End: 08-09-2024 Clinisync Result Encounter Generic External Data Provider [facility] External Department Unsolicited Start: 08-09-2024 End: 08-09-2024 Clinisync Result Encounter Generic External Data Provider [facility] External Department Unsolicited Start: 06-19-2024 End: 06-19-2024 Patient encounter procedure Alicia Fishman MD Work Phone: [facility] Comment on above: Basal cell carcinoma of skin of other part of trunk (Primary Dx) Start: 06-19-2024 End: 06-19-2024 ambulatory ALICIA FISHMAN Not Available Start: 06-14-2024 End: 06-14-2024 Patient encounter procedure Efren Centeno MD Work Phone: [facility] Comment on above: Squamous cell carcin darlene of skin of left quaker (Primary Dx) Start: 06-14-2024 End: 06-14-2024 ambulatory EFREN CENTENO Not Available Start: 06-12-2024 End: 06-12-2024 [facility] Start: 06-07-2024 End: 06-07-2024 Clinisync Result Encounter Generic External Data Provider [facility] External Department Unsolicited Start: 06-07-2024 End: 06-07-2024 Clinisync Result Encounter Generic External Data Provider [facility] External Department Unsolicited Start: 05-14-2024 End: 05-14-[facility]24 [facility] Start: 05-07-2024 End: 05-07-2024 Clinisync Result Encounter Generic External Data Provider [facility] External Department Unsolicited Start: 05-07-2024 End: 05-07-2024 Clinisync Result Encounter Generic External Data Provider [facility] External Department Unsolicited Start: 05-02-2024 End: 05-02-2024 Chester Fishman MD Work Phone: [facility] Start: 05-02-2024 End: 05-02-2024 Chester Fishman MD Work Phone: [facility] Start: 05-02-2024 End: 05-02-2024 Office outpatient visit 15 minutes Alicia Fishman MD Work Phone: [facility] Comment on above: Seborrheic keratosis (Primary Dx); Actinic keratosis; Lentigines; Neoplasm of unspecified behavior of bone, soft tissue, and skin; History of basal cell carcinoma; History of SCC (squamous cell carcinoma) of skin Start: 05-02-2024 End: 05-02-2024 ambulatory ALICIA FISHMAN Not Available Start: 04-11-2024 End: 04-11-2024 ambulatory MACRINA [facility] Start: 04-04-2024 End: 04-04-2024 Clinisync Result Encounter Generic External Data Provider [facility] External Department Unsolicited Start: 04-04-2024 End: 04-04-2024 Clinisync Result Encounter Generic External Data Provider [facility] External Department Unsolicited Start: 03-21-2024 End: 03-21-2024 Office outpatient visit 15 minutes Rosa M Gonzales MD Work Phone: [facility] Comment on above: Herpes zoster withou t complication (Primary Dx); Elevated fasting glucose Start: 03-21-2024 End: 03-21-2024 ambulatory ROSA M GONZALES Not Available Start: 03-21-2024 End: 03-21-2024 Bamboo flowsheet Rosa M Gonzales MD Work Phone: [facility] Start: 03-21-2024 End: 03-21-2024 Bamboo flowsheet Rosa M Gonzales MD Work Phone: [facility] Start: 03-18-2024 End: 03-18-2024 ambulatory [facility] Start: 03-05-2024 End: 03-05-2024 Clinisync Result Encounter Generic External Data Provider [facility] External Department Unsolicited Start: 03-05-2024 End: 03-05-2024 Clinisync Result Encounter Generic External Data Provider [facility] External Department Unsolicited Start: 03-04-2024 End: 03-04-2024 ambulatory Reji BROWER Facility:[facility] Start: 03-04-2024 End: 03-04-2024 Patient encounter procedure Reji BROWER [facility] Start: 02-01-2024 End: 02-01-2024 Clinisync Result [...] (CMS/HCC) Start: 01-29-2024 End: 01-29-2024 ambulatory NICKI TRIVEDIHumbertoWILLIAM Not Available Start: 01-29-2024 End: 01-29-2024 ambulatory Reji BROWER Facility:[facility] Start: 01-29-2024 End: 01-29-2024 Patient encounter procedure Reji BROWER [facility] Start: 01-26-2024 End: 01-26-2024 Office outpatient visit 15 minutes Nicki Agustin MANAGER RN CASE Work Phone: [facility] Comment on above: Encounter for immuni zation (Primary Dx); Tinea corporis; Type 2 diabetes mellitus without complications ([facility]/HCC) Start: 01-26-2024 End: 01-26-2024 ambulatory NICKI TRIVEDIHumbertoWILLIAM Not Available Start: 01-25-2024 End: 01-25-2024 Clinisync Result Encounter Generic External Data Provider [facility] External Department Unsolicited Start: 01-25-2024 End: 01-25-2024 Clinisync Result Encounter Generic External Data Provider [facility] External Department Unsolicited Start: 01-11-2024 End: 01-11-2024 ambulatory Schmidt Talal Ishanmini [place] Start: 01-11-2024 End: 01-11-2024 Patient encounter procedure Schmidt Talal Ishanmini [facility] Start: 12-28-2023 End: 12-28-2023 Clinisync Result Encounter Generic External Data Provider [facility] External Department Unsolicited Start: 12-28-2023 End: 12-28-2023 Clinisync Result Encounter Generic External Data Provider [facility] External Department Unsolicited Start: 12-25-2023 End: 12-25-2023 ambulatory Schmidt Talal Ishanmini Facility:[facility] Start: 12-25-2023 End: 12-25-2023 Patient encounter procedure Schmidtamador Butler Ishanmini [facility] Start: 12-08-2023 End: 12-08-2023 Armani Gonzales MD Work Phone: [facility] Comment on above: History of kidney tr ansplant ([facility]/HCC) Start: 11-20-2023 End: 11-20-2023 ambulatory FEDERICO [facility] Start: 05-29-2023 Clinisync Result Encounter Gen irwin External Data Provider [facility] External Department Unsolicited Start: 05-29-2023 Clinisync Result Encounter Gen irwin External Data Provider [facility] External Department Unsolicited Start: 08-18-2022 End: 08-19-[address] DOCTOR [...] encounter procedure Reji BROWER [facility] Start: 09-28-2021 End: 09-29-[address] FEDERICO [place] Facility:[facility] Start: 05-15-2021 End: 06-07-2021 ambulatory ROSA M GONZALES Facility:[facility] Start: 04-23-2021 Office outpatient vi sit 25 minutes Rosa M Gonzales Work Phone: [facility] 250 DO Work Phone: Start: 12-02-2020 End: 12-04-2020 Evaluation and management of inpatient YONAS HERRERA Facility:[facility] Start: 12-01-2020 End: 12-01-2020 Emergency department patient visit REFERRED SELF Facility:[facility] Start: 10-29-2020 End: 10-30-2020 ambulatory ROSA M GONZALES Facility:[facility] Start: 08-02-2020 End: 08-19-2020 Evaluation and management of inpatient JUAN FERREIRA Facility:[facility] Procedures Date Procedure Procedure Detail Performing Clinician Start: 11-15-2024 ALL CBC WITH AUTO DIFF Generic External Data Provider Start: 11-04-2024 End: 11-04-2024 SKIN / NAIL BIOPSY Alicia Fishman MD Work Phone: Start: 11-04-2024 End: 11-04-2024 CRYOTHERAPY SKIN LESION Alicia Fishman MD Work Phone: Start: 10-15-2024 CA ECHO DOPPLER COMPLETE Generic Externa l Data Provider Start: 10-14-2024 ALL MAGNESIUM Generic External Data Provider Start: 10-14-2024 ALL PHOSPHOROUS Generic External Data Provider Start: 10-14-2024 ALL URIC ACID Generic External Data Provider Start: 10-14-2024 [facility] CMP (CMP) (FOR REMOTE [facility] USE) Gener ic External Data Provider Start: 10-14-2024 METRO BILIRUBIN, DIRECT Generic External Data Provider Start: 09-10-2024 Hemoglobin A1c/Hemoglobin.total in Blood Rosa M Gonzales MD Work Phone: Start: 09-10-2024 ALL CBC WITH AUTO DIFF Generic External Data Provider Start: 08-09-2024 ALL CBC WITH AUTO DIFF Generic External Data Provider Start: 06-19-2024 DESTRUCTION OF LESION Alicia Fishman MD Work Phone: Start: 06-13-2024 [facility] Efren Centeno MD Work Phone: Start: 06-07-2024 MLR HEMOGLOBIN A1C Generic External Data Provider Start: 05-07-2024 ALL CBC WITH AUTO DIFF Generic External Data Provider Start: 05-02-2024 End: 05-02-2024 SKIN / NAIL BIOPSY Alicia Fishman MD Work Phone: Start: 05-02-2024 CRYOTHERAPY SKIN LESION Alicia Fishman MD Work Phone: Start: 04-04-2024 ALL CBC WITH AUTO DIFF Generic External Data Provider Start: 03-05-2024 Hemoglobin glycosylated a1c Rosa M [...] Colonoscopy Xochilt Graham Start: 01-11-2024 Esophagogastroduodenoscopy Xochilt Lee inkennedi Start: 12-28-2023 ALL CBC WITH AUTO DIFF Generic External Data Provider Start: 12-25-2023 History of renal transplant Xochilt Vann Start: 05-29-2023 TACROLIMUS ([id number]), BLOOD Generic [employer] al Data Provider Start: 01-15-2023 Bilateral total nephrectomy Reji RICHARDS Start: 11-08-2022 History of placement of stent in anterior descending branch of left coronary artery Status post insertion of drug-eluting stent into left anterior descending (LAD) artery for coronary artery disease Generic Provider Start: 12-03-2020 INTRODUCTION OF OTHER GAS INTO RESP TRACT, VIA OPENING YONAS HERRERA Start: 08-03-2020 INTRODUCE REMDESIVIR IN PERIP VEIN, PERC, NEW TECH 5 YOJANA TRUJILLO Start: 08-03-2020 INTRODUCTION OF OTHER GAS INTO RESP TRACT, VIA OPENING YOJANA TRUJILLO Start: 12-30-2019 History of renal transplant History of kidney transplant Generic Provider Start: 01-01-2018 Transplant of kidney Reji BROWER Comment on above: Pt has three kidneys Start: 02-01-2013 Colonoscopy Generic Provider Bilateral vasectomy Reji BROWER Cardiac catheterization Anne Gonzales Work Phone: Colonoscopy Schmidt Ishanjarrod i Coronary artery bypass graft Rosa M Gonzales Work Phone: Coronary artery bypass grafts x 3 Rejiraghavendra BROWER Creation of graft fi stula for dialysis Rosa M Gonzales Work Phone: Extraction of wisdom tooth J durga Gonzales Work Phone: History of renal transplant Tania l transplant recipient Rosa M Gonzales Work Phone: History of renal transplant Kidn ey transplanted( Confirmed ) Rejiraghavendra BROWER History of renal transplant Hist ory of kidney transplant (CMS/HCC) Rosa M Gonzales MD Work Phone: History of renal transplant Hist ory of kidney transplant (HCC) Rosa M Gonzales MD Work Phone: History of renal transplant Hist ory of kidney transplant (HCC) Rosa M Gonzales MD Work Phone: Insertion of pacemak er pulse generator Rosa M Gonzales Work Phone: Placement of stent i n cardiac conduit Reji LEONARDA Total colonoscopy Rosa M Gonzales Work Phone: Transplant of kidney Kane Gonzales Work Phone: Plan of Treatment Date Care Activity Detail Author Start: 01-25-2034 Screening for malignant neoplasm of colon [facility] Start: 01-10-2034 Screening for malignant neoplasm of colon [facility] Start: 10-03-2025 Medicare Annual Wellness (AWV) Medicare Annual Wellness (AWV) [facility] Start: 01-03-2025 End: 01-03-2025 Patient encounter procedure 01/03/2025 8:30 AM EDT Office Visit [facility] [address] [place] [phone] Avelina Fernandez MD [address] [place] [address] [facility] Start: 12-16-2024 Influenza vaccination Influenza Vaccine (#1) [facility] Start: 12-03-2024 End: 12-03-2024 Patient encounter procedure 12/03/2024 2:00 PM EDT Office Visit [facility] [address] [place] [facility] [place] [phone] Rosa M Gonzales MD [address] [facility] [place] [address] Arrived [facility] Comment on above: Arrived Start: 11-04-2024 End: 11-04-2024 Patient encounter procedure [facility] Comment on above: Arrived Start: 10-25-2024 Glaucoma screening Diabetes: Retinopathy Screening [facility] Start: 10-03-2024 End: 10-03-2024 Patient encounter procedure [facility] Comment on above: Arrived Start: 07-26-2024 Medicare Annual Wellness (AWV) Medicare Annual Wellness (AWV) [facility] Start: 06-19-2024 End: 06-19-2024 Patient encounter procedure 06/19/2024 10:50 AM EST Procedure Visit [facility] [address] [place] [address] Alicia Fishman MD [address] [place] [address] [facility] Start: 06-14-2024 End: 06-14-2024 Patient encounter procedure 06/14/2024 8:30 AM EST Office Visit [facility] [address] [place] [address] Efren Centeno MD [address] [place] [address] [facility] Start: 06-05-2024 Hemoglobin A1c measurement Diabetes: Hemoglobin A1C [facility] Start: 05-18-2024 Urine screening for protein Diabetes: Urine Protein Screening [facility] Start: 05-02-2024 End: 05-02-2024 Patient encounter procedure [facility] Comment on above: Arrived Start: 03-21-2024 End: 03-21-2024 Patient encounter procedure 03/21/2024 3:30 PM EST Office Visit [facility] [address] [place] [address] Rosa M Gonzales MD [address] [place], [place] [phone] [facility] on above: [facility]rived Start: 12-17-2023 Influenza vaccination Influenza Vaccine (#1) [facility] Start: 11-09-2023 Medicare Annual Wellness (AWV) Medicare Annual Wellness (AWV) [facility] Start: 10-30-2023 End: 10-30-2023 Patient encounter procedure 10/30/2023 10:05 AM EDT Office Visit [facility] [address] [place] [phone] Alicia Fishman MD [address] [place] [address] [facility] Start: 08-16-2023 Hemoglobin A1c measurement Diabetes: Hemoglobin A1C [facility] Start: 02-01-2023 Screening for malignant neoplasm of colon [facility] Start: 12-27-1979 Urine screening for protein Diabetes: Urine Protein Screening [facility] Start: 1960 Screening for malignant neoplasm of colon [facility] Dermatopathology exam Dermatopat hology exam Pathology and Cytology Timed Neoplasm of unspecified behavior of bone, soft tissue, and skin Release Upon Ordering for 1 Occurrences starting 05/02/2024 [facility] Work Phone: Comment on above: Release Upon Ordering for 1 Occurrences starting 05/02/2024 Dermatopathology exam Dermatopat hology exam Pathology and Cytology Timed Neoplasm of unspecified behavior of bone, soft tissue, and skin Release Upon Ordering for 1 Occurrences starting 11/04/2024 [facility] Work Phone: Comment on above: Release Upon Ordering for 1 Occurrences starting 11/04/2024 Immunizations Immunization Date Immunization Notes Care Provider [facility] 01-26-2024 influenza, seasonal, injectable, preservative free Nicki Velez NP Work Phone: [facility] 01-26-2024 influenza virus vaccine, unspecified formulation Alicia Fishman MD Work Phone: [facility] 01-13-2023 influenza virus vaccine, unspecified formulation Rosa M Gonzales MD Work Phone: [facility] 01-13-2023 influenza, injectabl e, quadrivalent, preservative free Generic Provider [facility] 01-13-2022 influenza virus vaccine, unspecified formulation Schmidt Sarmini [facility] 01-13-2022 influenza, injectabl e, quadrivalent, preservative free Generic Provider [facility] 12-30-2021 Moderna Bivalent Booster Vaccination Generic Provider [facility] 12-30-2021 Moderna SARS-CoV-2 50mcg/0.5mL Booster Generic Provider [facility] 12-30-2021 SARS-CoV-2, Unspecified Generic Provider [facility] 07-21-2021 SARS-CoV-2 (COVID-19 ) [id number] vaccine Schmidt Sarmini [facility] Comment on above: Result Comment: 2023: [id number] 02-01-2021 influenza virus vaccine, unspecified formulation Schmidt Sarmini [facility] 02-01-2021 Seasonal, quadrivalent, recombinant, injectable influenza vaccine, preservative free Rosa M Gonzales Work Phone: [place] [address] DO Work Phone: 01-06-2021 Moderna COVID-19 Vaccine 100 MCG/0.5ML Intramuscular Suspension Rosa M Gonzales Work Phone: [facility] Comment on above: Result Comment: 2023: [id number] 07-10-2020 Moderna COVID-19 Vaccine 100 MCG/0.5ML Intramuscular Suspension Rosa M Gonzales Work Phone: [facility] Comment on above: Result Comment: 2023: [id number] 06-12-2020 Moderna COVID-19 Vaccine 100 MCG/0.5ML Intramuscular Suspension Rosa M Gonzales Work Phone: [facility] Comment on above: Result Comment: 2023: [id number] 01-27-2020 influenza virus vaccine, unspecified formulation Schmidt Sarmini [facility] 01-27-2020 influenza, seasonal, injectable Rosa M Gonzales Work Phone: [place] [address] DO Work Phone: 01-22-2020 influenza virus vaccine, unspecified formulation Schmidt Sarmini [facility] 01-22-2020 Seasonal trivalent influenza vaccine, adjuvanted, preservative free Generic Provider [facility] 01-16-2020 influenza virus vaccine, unspecified formulation Rosa M Gonzales Work Phone: [facility] 01-16-2020 influenza, seasonal, injectable Generic Provider [facility] 02-05-2019 influenza virus vaccine, unspecified formulation Schmidt Sarmini [facility] 02-05-2019 Seasonal, quadrivalent, recombinant, injectable influenza vaccine, preservative free Rosa M Gonzales Work Phone: [place] [address] DO Work Phone: 05-11-2018 influenza virus vaccine, unspecified formulation Schmidt Sarmini [facility] 05-11-2018 influenza, injectabl e, quadrivalent, preservative free Rosa M R Janet Work Phone: [place] [address] DO Work Phone: 02-16-2018 influenza virus vaccine, unspecified formulation Schmidt Sarmini [facility] 02-16-2018 influenza, injectabl e, quadrivalent, preservative free Rosa M R Janet Work Phone: [place] [address] DO Work Phone: 06-08-2017 influenza virus vaccine, unspecified formulation Schmidt Sarmini [facility] 06-08-2017 influenza, injectabl e, quadrivalent, preservative free Rosa M R Janet Work Phone: [place] [address] DO Work Phone: 12-16-2016 influenza virus vaccine, unspecified formulation Schmidt Sarmini [facility] 12-16-2016 influenza, injectabl e, quadrivalent, contains preservative Rosa M R Janet Work Phone: [place] [address] DO Work Phone: 01-28-2015 influenza virus vaccine, unspecified formulation Schmidt Sarmini [facility] 01-28-2015 influenza, seasonal, injectable Rosa M Gonzales Work Phone: [place] [address] DO Work Phone: 07-10-2014 Moderna SARS-CoV-2 Vaccination Rosa M Gonzales MD Work Phone: [facility] 04-27-2012 influenza virus vaccine, whole virus Rosa M Gonzales Work Phone: [facility] [address] DO Work Phone: 04-27-2012 influenza, whole Schmidt Sa rmini [facility] NEGATED: Highlighted row has not occurred!12-25-2023 influenza virus vaccine, unspecified formulation Schmidt Sarmini [facility] Payers Date Payer Category Payer Private Health Insurance [id number] 2023 Medicare (Managed Care) [employer]AGE [id number] 2023 Private Health Insurance [id number] 2022 Private Health Insurance [id number] 2016 Medicare [id number] 1.13.693. [id number] 1960 Unknown [id number] 2.16.840.1.667840.3.579. 2.647 1960 Unknown [id number] 2.16.840.1.796519.3.579. 2.647 1960 Unknown [id number] 2.16.840.1.914686.3.579. 2.647 1960 Unknown [id number] 2.16.840.1.612125.3.579. 2.647 1960 Unknown [id number] 2.16.840.1.710299.3.579. 2.647 1960 Unknown [id number] 2.16.840.1.575499.3.579. 2.593 1960 Unknown [id number] 2.16.840.1.035564.3.579. 2.593 1960 Unknown [id number] 2.16.840.1.648005.3.579. 2.593 1960 Unknown [id number] 2.16.840.1.042284.3.579. 2.593 1960 Unknown [id number] 2.16.840.1.142626.3.579. 2.593 1960 Unknown [id number] 2.16.840.1.734231.3.579. 2.593 1960 Unknown [id number] 2.16.840.1.726705.3.579. 2.593 1960 Unknown [id number] 2.16.840.1.338052.3.579. 2.593 1960 Unknown [id number] 2.16.840.1.841835.3.579. 2.593 1960 Unknown [id number] 2.16.840.1.121269.3.579. 2.727 1960 Unknown [id number] 2.16.840.1.312422.3.579. 2.727 1960 Unknown [id number] 2.16.840.1.936125.3.579. 2.727 1960 Unknown [id number] 2.16.840.1.810996.3.579. 2.727 1960 Unknown [id number] 2.16.840.1.728456.3.579. 2.1258 1960 Unknown [id number] 2.16.840.1.917146.3.579. 2.1258 1960 Unknown [id number] 2.16.840.1.689489.3.579. 2.1258 1960 Unknown [id number] 2.16.840.1.120664.3.579. 2.1258 1960 Unknown [id number] 2.16.840.1.176961.3.579. 2.1258 1960 Unknown [id number] 2.16.840.1.018335.3.579. 2.1258 1960 Unknown [id number] 2.16.840.1.365884.3.579. 2.1258 1960 Unknown [id number] 2.16.840.1.389289.3.579. 2.1258 1960 Unknown [id number] 2.16.840.1.536039.3.579. 2.9 1959 Medicare [id number] 1959 Private Health Insurance [id number] Unknown Social History Date Type Detail Facility Start: 11-01-2022 End: 05-01-2023 No alcohol use No alcohol use [facility] Comment on above: 1-2 cups of coffee d aily.; Quit in 2008; Start: 01-01-2020 End: 10-30-2023 Tobacco smoking status Ex-smoker (finding) [facility] Start: 11-01-2022 End: 10-03-2024 Sex Assigned At Male [facility] End: 04-17-2007 History of tobacco use Current smoker [facility] End: 04-17-2007 History of tobacco use Cigarette Smoker [facility] Start: 11-06-2022 End: 10-30-2023 Tobacco use and exposure Smokeless tobacco non-user [facility] Start: 05-01-2023 End: 12-03-2024 Alcohol intake Ex-drinker (finding) [facility] Within the last year , have you been afraid of your partner or ex-partner? No [facility] Do you belong to any clubs or organizations such as cheondoism groups, unions, fraternal [...] intak e : 1-2 cups per day [facility] Start: 1960 Sex Assigned At Not on file [facility] Start: 06-29-2022 Gender identity Identifies as male gender (finding) [facility] Medical Equipment Procedure Code Equipment Code Equipment Origin al Text Equipment Identifier Dates [id number] Start: 10-03-2024 End: 10-03-2025 Functional Status Date Assessment Result Facility 10-03-2024 Patient Health [facility] ionnaire 2 item (PHQ-2) [Reported] [facility] 03-04-2024 Functional Status N/A [facility] 01-11-2024 Functional Status N/A [facility] 12-25-2023 Functional Status N/A [facility] 01-17-2022 Functional Status N/A [facility] Clinical Notes 08-20-2020 to 12-04-2024 Telephone Encounter - Rosa M Gonzales MD - 12/04/2024 5:08 PM EDTTelephone Encounter - Rosa M Gonzales MD - 12/04/2024 5:08 PM EDTRosa M Gonzales MD - 12/03/2024 2:00 PM EDT Note Date & Type Note Facility 12-04-2024 Telephone encounter Note Refills sent. [facility] 12-04-2024 Miscellaneous Notes Refills sent. documented in this encounter [facility] 12-03-2024 History of Present illness Narrative Associated Problem(s): Gastroesophageal reflux disease The nitroglycerin may be easing some esophageal spasm when he takes it. Does not seem to be cardiac issues. Dr Santiago is comfortable with his use of NTG. Subjective ?Quick Links Last Note in Specialty Snapshot Edit RFV/CC Edit Screenings Current Meds Patient ID: Vishal Duke is a 63 y.o. male who presents for Dizziness. HPI History of Present Illness The patient presents for dizziness, GERD, and diabetes. He reports experiencing episodes of lightheadedness, which he describes as sudden and transient, lasting approximately 10 to 15 seconds. These episodes can occur multiple times in a day or just once, without any apparent trigger. He maintains good hydration throughout the day and does not believe dehydration is a contributing factor. He also reports no vertigo-like symptoms such as room spinning. He has been monitoring his blood pressure at home, which has remained within normal limits. Yesterday afternoon, he experienced a dizzy spell, during which his blood pressure was 116/64 and his blood sugar was 152. He has not had a severe dizzy spell in the past month. His blood sugar levels have ranged from 116 to 184, with a typical range of 140 to 160. He monitors his A1c levels every three months, with the most recent reading being 6.4. He is scheduled for an eye examination on 12/05/2024. He has been experiencing episodes of shortness of breath, which he attributes to his pacemaker. These episodes are often accompanied by a cough that subsides once his breathing normalizes. He reports no chest tightness. He uses an inhaler for relief, which sometimes helps and sometimes does not. He also takes nitroglycerin, which provides some relief. He has been advised by Dr. Goel to continue using nitroglycerin as needed. He has been taking Nexium for GERD, which has been effective in managing his symptoms. However, he still experiences episodes of GERD at night, particularly when lying flat. He reports that Tums also provide relief during these episodes. PAST SURGICAL HISTORY: Pacemaker insertion Objective BP 122/70 Pulse 65 Ht 5' 11 Wt 206 lb 9.6 oz SpO2 94% BMI 28.81 kg/m Physical Exam Physical Exam General Appearance: Normal. [...] and then again when standing. This is probably the cause of dizziness. We discussed hydration and stopping for a minute with any changes in position to allow the BP and pulse to catch up. Would rather not change cardiac medications yet [facility] he has been doing so well. [...] which sometimes helps and sometimes does not. He also takes nitroglycerin, which provides some relief. - He has been advised by Dr. Goel to continue using nitroglycerin as needed. documented in this encounter [facility] 11-04-2024 History of Present illness Narrative Images from the original note were not included. Skin Check Location: Patient requests a skin examination from the waist up Dermatologic history: history of Actinic Keratosis, history of Basal Cell Carcinoma, history of Squamous Cell Carcinoma (history of kidney transplant) Last visit: 6 months ago- last skin exam Last visit: 06/14/24 Mohs to left quaker SCC and 06/19/24 for ED&C BCC on the left upper back All [...] benign pigmented lesions that occur on sun-exposed and sun-damaged skin. No treatment is necessary. Recommended regular [...] Left Eyebrow, Left Forearm - Anterior, Left Pentecostal, Mid Parietal Scalp (3), Mid Tip of Nose, Right Buccal Cheek Erythematous scaly papules Patient was counseled regarding these sun-induced growths that can develop into squamous cell carcinoma if left untreated. Discussed treatment with cryotherapy. It was emphasized that any treated lesions that fail to resolve should be re-evaluated. Cryotherapy performed today; see procedure note Diagnosis: Actinic keratosis Indication: Precancerous Location: see skin exam Consent: Verbal consent was obtained and risks were discussed, including, but not limited to risks of scarring, darker or butt sawyer pigmentary changes, recurrence, incomplete removal and infection. [...] Left Eyebrow, Left Forearm - Anterior, Left Pentecostal, Mid Parietal Scalp (3), Mid Tip of Nose, Right Buccal Cheek 5. NEOPLASM OF UNSPECIFIED BEHAVIOR OF BONE, SOFT TISSUE, AND SKIN (4) Right Parietal Scalp Prompton pearly papule Lesion biopsy Type of biopsy: [...] 1.2 x 1.0 cm Right Preauricular Area Prompton scaly plaque Lesion biopsy Type of biopsy: [...] Anterior, Right Breast (4), Right Frontal Scalp, Right Lower Back (2), Right Preauricular Area Prompton and brown stuck on verrucous scaly papule [...] office if abnormal redness or tenderness develops at the treatment site. Cryotherapy today, see procedure note. Diagnosis: Inflamed seborrheic keratosis Indication: Inflamed Consent: Verbal consent was obtained and risks were discussed, including, but not limited to risks of scarring, darker or butt sawyer pigmentary changes, recurrence, incomplete removal and infection. [...] Anterior, Right Breast (4), Right Frontal Scalp, Right Lower Back (2), Right Preauricular Area Next Visit: 6 months documented in this encounter [facility] 10-17-2024 Note Transplant Clinic Patient : Vishal Duke; 63 y.o. Reason for Visit: History of renal transplant. 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 Marquez. CMV +/-. Notable history of AR/cardiac arrest/implanted ICD in 2020 Patient returns regarding post transplant evaluation and immunosuppression regimen management. 10/17/2024 Patient returns regarding post transplant evaluation and immunosuppression regimen management. Urinary-denies dysuria or gross hematuria. Endorses nocturia x 2. Bowel movements-normal per patient, without hematochezia. Ongoing symptoms regarding post zoster/postherpetic syndrome. Significant pruritus. Using moisturizer. Endorses peripheral edema with prolonged standing Tremors-noticeable, not affecting ADLs. Dyspnea on exertion, recovers at rest, tries to take his time. No chest pain. No fever, chills, nausea, vomiting. Therapeutic phlebotomy was performed on 06/12/2019 Immunosuppression: Tacrolimus 0.5 mg / 0.5 mg Myfortic 540 mg (3 tabs x 180mg), PO, BID Review of Systems Negative other than pertinent positives as outlined in the above HPI Chart Reviewed Historical: >>>>>>>>>>>>>>>>>>>>>>>>>>>>>>>>> >>>>>>>>>>>>>>>>>>>>>>>>>>>>>>> 04/11/24 Patient return for post transplant follow up He has contracted varicella-zoster/shingles, has affected right aspect of his chest anteriorly, and up into his neck, right ear, chin. Has been treated with antivirals. No longer has active vesicles or drainage. Continues to have skin derangement and paresthesias. 10/06/2023 Patient returns regarding post transplant evaluation [...] bilateral nephrectomy by Dr Maldonado on 01/24/23 and all incision well healed without s/s infection. Pt eating / drinking well normal Bms and voiding. 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 he received DDRT on aug 16 2017 , uncomplicated. Hx; AR and had Pacer/Defib Placed. Pt following up [facility] cardiology Pt inpatient for ruptured renal cyst [...] Cardiology as scheduled. See PCP. See Dr Maldonado. Continue meds and labs. follow up 6 months. 02/09/23 DD Renal transplant on (08/15/2017) by Dr. Marquez. CMV +/-. Patient has recent history of an AR and had Pacer/Defib Placed. Patient here for follow up Nephrectomy Patient states he is feeling good with a 21 pound weight loss since bilat [place] kidney's removed. He states that he [...] urinary complaints. -Communicable disease prevention discussed -Incision He (more content not included)... [facility] 10-17-2024 Note [facility] Cardiology Clinic Note Chief Complaint: Patient here for 1 mo follow up with ECHO. Patient states he still has occasional ARRIETA, dizziness,fatigue and palpitations patient states the symptoms have been on going for years Patient states he has no other cardiac complaints. HPI: Generally doing about the same. Continues [...] aches or cramps. No known back disease. UPDATE 09/19/2023 Vishal has been having episodic significant lightheadedness, weakness, and a feeling like he is having a seizure . He states that this is how he felt before he had a V-fib arrest at [facility]. He has not felt his ICD shocked him. His usual chest burning and shortness of breath is essentially unchanged maybe a little worse. No orthopnea, no paroxysmal terminal dyspnea, no significant lower extremity edema. Pertinently, he was recently found to have elevated blood glucose and an HbA1c of 6.4. He will be seeing his PCP soon. Also, he noticed that his blood pressure has been on the lower side with some readings in the 90s systolic. UPDATE 10/17/2024 Doing better; no new bad symptoms like he had before. He occasionally gets lightheaded or dizzy. He feels that this may be related to blood pressures being on the low side. He has had glucometer and has been checking frequently. His blood glucose usually runs in the 100s to 180s. Nothing below 100. His family physician is aware. Review of Systems Constitutional: Positive for malaise/fatigue. Cardiovascular: Positive for dyspnea on exertion and palpitations. Neurological: Positive for dizziness. Past Medical History He has a past [...] He reports that he quit smoking about 17 years ago. His smoking use included cigarettes. [...] tablet, Rfl: 3 lisinopril 5 mg tablet, TAKE 1 TABLET BY MOUTH IN THE MORNING, Disp: 90 tablet, Rfl: 3 magnesium oxide [...] directed. Do not crush or chew. (Patient not taking: Reported on 09/18/2024), Disp: 90 tablet, Rfl: 3 mycophenolate (Myfortic) 180 mg EC tablet, Take 3 tablets (540 mg) by mouth two times daily., Disp: 540 tablet, Rfl: 3 nitroglycerin (Nitrostat) 0.4 mg (more content not included)... [facility] 10-03-2024 Telephone encounter Note [facility] [place] received rx for test strips and lancets. How many do you want them to dispense and how many refills? They will take a verbal [phone]. Thank you. [facility] 10-03-2024 Miscellaneous Notes [facility] [place] received rx for test strips and lancets. How many do you want them to dispense and how many refills? They will take a verbal [phone]. Thank you. documented in this encounter [facility] 10-03-2024 History of Present illness Narrative Associated Problem(s): Chronic obstructive pulmonary disease (HCC) This has been very stable. Associated Problem(s): Chronic systolic congestive heart failure (HCC) No signs of fluid overload. Echo with EF of 35% 08/07. Doing great. Still has occasional dyspnea or pain. Cardio is happy with where he is at present. Associated Problem(s): End-stage renal disease (HCC) S/P Transplant. Associated Problem(s): Post-COVID chronic dyspnea Associated Problem(s): Essential hypertension Associated Problem(s): PKD (polycystic kidney disease) Associated Problem(s): Stage 3 chronic kidney disease (CMS-HCC) Associated Problem(s): History of kidney transplant (HCC) Follows with transplant team. Subjective Patient ID: Vishal Duke is a 63 y.o. male who presents [...] Yes Vision Screening: Yes, patient sees regular lab support service tech/compliance intern Hearing Screening: Yes, concerned about hearing loss Cognitive Screening Self Assessment: No overt cognitive deficiency is apparent by direct observation Three Word Registration: Jam Hallman Picture Clock Drawing: Normal Clock - 2 Three Word Recall: 2/3 words correct - 2 Total Score (0-5 Points): 4 Pain Assessment Pain Score: 2 History of Present Illness The patient presents for evaluation of dyspnea, dizziness, diabetes mellitus, and shingles. He recently returned from a vacation in [place], during which he experienced difficulty breathing in [...] healthy, he has discontinued visits to the business director. He finds some relief from inhalers and monitors his oxygen levels at home, which typically range from 95 to 96 percent. He also reports occasional leg swelling, particularly in hot weather, but did not experience this during his recent trip to [place]. He has been experiencing frequent dizziness, which he attributes to either low blood pressure or high blood sugar levels. His drain technician recently conducted an EKG, which yielded normal results, and has scheduled an echocardiogram for 10/15/2024. His cardiac medications remain unchanged. He does not monitor his blood sugar levels during these episodes. His blood pressure readings vary, sometimes measuring as low as 90/50, but can increase [...] is currently on Jardiance, prescribed by his drain technician, and undergoes monthly lab tests ordered by his cnc router operator due to a kidney transplant. His A1c is monitored every 3 months. He has been informed by his urologist that there is no protein in his urine. He maintains an active lifestyle, walking daily and playing with his dogs, although he acknowledges that his stamina varies from day to day. He undergoes annual eye examinations and has had cataract surgery in both eyes. He continues to experience itching from shingles and applies anti-itch cream for relief. PAST SURGICAL HISTORY: Cataract surgery on both eyes Objective BP 120/66 Pulse 64 Ht 5' 11 Wt 204 lb 6.4 oz SpO2 93% BMI 28.51 kg/m Physical Exam Physical Exam General Appearance: Normal. [...] dental exam. Vaccines and cancer screens reviewed for completeness. Screen labs as needed. Assessed needs for tools in the home for independence. Living will and durable power of certified pharmacy technician reviewed. Updated patient problem list and reviewed [...] at present. Essential hypertension End-stage renal disease ([facility]) S/P Transplant. PKD (polycystic kidney disease) Stage 3a chronic kidney disease ([facility]) History of kidney transplant ([facility]) Follows with transplant team. Dizziness Being evaluated by cardiology. Type 2 diabetes mellitus with diabetic cataract ([facility]) Type 2 diabetes mellitus with diabetic polyneuropathy ([facility]) Orders: Blood Glucose Monitoring Suppl (Blood Glucose Monitor System) w/Device kit; Use daily or as directed for monitoring of diabetes. Also dispense test strips and lancets of insurance choice. Cardiomyopathy, unspecified ([facility]) Assessment & Plan 1. Dyspnea. - Reports [...] diabetes. - Currently on Jardiance, prescribed by drain technician, which also helps manage blood sugar. - No additional medications will be added at this time. - Advised to inform lab support service tech about elevated blood sugar levels during next [...] during this visit. documented in this encounter [facility] 09-18-2024 Note [facility] Cardiology Clinic Note Chief Complaint: Patient here for 6 mo follow up. Patient states he has been having frequent dizzy spells, ARRIETA and palpitations. HPI: Generally doing about the same. Continues [...] aches or cramps. No known back disease. UPDATE 09/19/2023 Vishal has been having episodic significant lightheadedness, weakness, and a feeling like he is having a seizure . He states that this is how he felt before he had a V-fib arrest at [facility]. He has not felt his ICD shocked him. His usual chest burning and shortness of breath is essentially unchanged maybe a little worse. No orthopnea, no paroxysmal terminal dyspnea, no significant lower extremity edema. Pertinently, he was recently found to have elevated blood glucose and an HbA1c of 6.4. He will be seeing his PCP soon. Also, he noticed that his blood pressure has been on the lower side with some readings in the 90s systolic. Review of Systems Cardiovascular: Positive for dyspnea on exertion and palpitations. Neurological: Positive for dizziness. Past Medical History He has a past [...] He reports that he quit smoking about 17 years ago. His smoking use included cigarettes. [...] tablets (540 mg) by mouth two times daily., Disp: 540 tablet, Rfl: 3 nitroglycerin (Nitrostat) 0.4 mg SL tablet, Place 1 tablet (0.4 mg) under the tongue every 5 (five) minutes if needed for chest pain., Disp: 25 tablet, Rfl: 3 predniSONE (Deltasone) 5 mg tablet, Take 5 mg by mouth in the morning., Disp: , Rfl: ranolazine (Ranexa) 500 mg 12 hr tablet, Take 1 tablet (500 mg) by mouth two times daily. Do not crush, chew, or split., Disp: 180 tablet, Rfl: 3 tacrolimus (Prograf) 0.5 mg capsule, Take 1 capsule (0.5 mg) by mouth two times daily., Disp: 60 capsule, Rfl: 11 Last Recorded Vitals BP 114/68 (BP Location: Right arm, Patient Position: Sit (more content not included)... [facility] 06-19-2024 History of Present illness Narrative Images from the original note were not included. Follow up Diagnosis: Basal Cell Carcinoma Location: Left upper back Procedure performed: Shave biopsy Date of procedure: 05/02/2024 Patient her for ED&C today. All pertinent medical history, medications, and allergies were reviewed. General Exam: alert, oriented to person, place, and time, normal affect, well appearing Unaccompanied A focused exam completed based on patient reported problems, see below: 1. Basal cell carcinoma of skin of other part of trunk Left Upper Back Prompton macule at biopsy site Destr of lesion Complexity: simple Destruction method: electrodesiccation and curettage Informed consent: discussed and consent obtained Informed consent comment: The risks of the procedure were discussed, including, but not limited to risks of scarring, darker or butt sawyer pigmentary changes, recurrence, infection, and incomplete removal Timeout: patient name, date of , surgical site, and procedure verified Timeout comment: Patient and provider identified site. Site was marked. Photo was taken and shown to patient, patient verified this is the correct site. Procedure prep: Patient was prepped and draped in usual sterile fashion Prep type: Chlorhexidine Anesthesia: the lesion was anesthetized in a standard fashion Anesthetic: 1% lidocaine w/ epinephrine 1-100,000 buffered w/ 8.4% NaHCO3 Curettage performed in three different directions: Yes Electrodesiccation performed over the curetted area: Yes Curettage cycles: 3 Lesion length (cm): 1 Lesion width (cm): 1 Margin per side (cm): 0 Final wound size (cm): 1 Hemostasis achieved with: electrodesiccation Outcome: patient tolerated procedure well with no complications Post-procedure details: wound care instructions given Post-procedure details comment: Post-procedure instructions were given verbally and in writing. The office will be contacted if the lesion fails to resolve despite treatment, or if a side effect develops such as abnormal crusting, scabbing, reddness, discharge, or tenderness. Additional details: Amount of lidocaine used: 2.0 cc Previous accession number: [id number] Emphasized to return to clinic for any signs of recurrence prior to next visit. Next Visit: as scheduled documented in this encounter [facility] 06-14-2024 History of Present illness Narrative Images from the original note were not included. Mohs Surgery Location: Left quaker Date of biopsy: 05/02/2024 Diagnosis: Squamous Cell Carcinoma All pertinent medical history, medications, and allergies were reviewed. General Exam: alert, oriented to person, place, and time, normal affect, well appearing A focused exam completed based on patient reported problems, see below: 1. 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 Left Pentecostal Erythematous macule at the biopsy site. Mohs surgery Consent obtained: written (The rationale for Mohs as well as the risks, benefits, and alternatives. The risks of infection, scarring, bleeding, prolonged wound healing, incomplete removal, allergy to anesthesia or meds, nerve injury, and recurrence were addressed.) [place] Protocol: Procedure explained and questions answered to patient or proxy's satisfaction: Yes Test results available and properly labeled: Yes Pathology report reviewed: Yes Photo or diagram used for site identification: Yes Site/side marked: Yes Anticoagulation: Is the patient taking prescription anticoagulant and/or aspirin prescribed/recommended by a physician? Yes (81 mg ASA, Plavix) Was the anticoagulation regimen changed prior to Mohs? No Anesthesia: Anesthesia method: local infiltration Local anesthetic: lidocaine 1% WITH epi and sodium bicarbonate Procedure Details: Biopsy accession number: [id number] Biopsy lab: [facility] Date of biopsy: 05/02/2024 Frozen section biopsy performed: Yes Specimen debulked: No Pre-Op diagnosis: squamous cell carcinoma MohsAIQ Surgical site (if tumor spans multiple areas, please select predominant area): quaker Surgery side: left Surgical site (from skin exam): Left Pentecostal Pre-operative length (cm): 0.8 Pre-operative width (cm): 0.8 Indications for Mohs surgery: anatomic location where tissue conservation is critical and immunocompromised Previously treated? No Mohs Appropriate Use Criteria Score: 8 Details of micrographic surgery: Mohs accession number: [id number] Micrographic Surgery Details: Post-operative length (cm): 1.5 Post-operative width (cm): 1.5 Number of Mohs stages: 1 Stage 1 Comments: The area was prepped with Betadine, draped in a sterile fashion, and infiltrated with local anesthetic. Sterile technique was used throughout the procedure. The marked area of clinical tumor with a small rim of clinically normal surrounding skin was removed using Mohs technique with beveled edges. Hash banks were placed for orientation of the specimen. Hemostasis was achieved with electrodessication. After hemostasis, the defect was measured and recorded, a temporary sterile dressing was placed over the wound, and the patient was escorted to the waiting area. The specimen was oriented, mapped, and if necessary, divided into sections. A Mohs map was prepared. The specimen was placed in a labeled jeremiah dish and was taken to the Mohs lab where it was chromacoded and processed. Mohs sections were prepared with serial tissue sections, stained, and evaluated by Dr. Centeno for interpretation of deep and peripheral margins. The Mohs map was marked accordingly. Amount of lidocaine used: 2.0 cc Estimated blood loss: < 1.0 cc Defect size: 1.5 x 1.5 cm Number of blocks per stage: 1 Number of positive blocks: 0. Tumor free margins were obtained and the Mohs procedure was considered complete. Tumor features identified on Mohs section: no tumor identified Depth of defect after stage: dermis Patient tolerance of procedure: tolerated well, no immediate complications Reconstruction: Was the defect reconstructed?: No Antibiotics: Were antibiotics given on the day of surgery?: No Mohs Post Operative Type of repair: None. Wound to heal by secondary intention. Wound Care: A dressing was placed on the surgical wound. Post-operative instructions were given in writing and were reviewed with the patient. A follow-up appointment was made, and instructions were given to follow-up sooner if necessary. Next visit: 06/19/2024, ED&C documented in this encounter [facility] 06-11-2024 Note Reviewed over the ph one with Dr. Basurto patients outside labs hemoglobin 16.7 and hematocrit 51, and TAC level 8.3. Current IS tacrolimus IR 0.5 mg BID. New orders for phlebotomy, remove 500 and give 500 ml NS IV. Will watch TAC level for now, no dose changes. Updated patient to the above, verbalized understanding. Will come to [facility] to have this done, aware BOP will call to schedule. [facility] 05-02-2024 History of Present illness Narrative Images from the original note were not included. Skin Check Location: Patient requests a skin examination from the waist up Dermatologic history: history of Actinic Keratosis, history of Basal Cell Carcinoma, history of Squamous Cell Carcinoma (history of kidney transplant) Last visit: 6 months ago- last skin exam, 11/2023 Mohs to mid parietal scalp SCC in situ Established patient All pertinent medical history, medications, and allergies [...] Hands Examined Digits,nails: Examined Lymphatics: Not examined 1. Seborrheic keratosis Stuck on verrucous, garcia-brown papules and plaques. Patient was counseled regarding these benign growths. Removal is normally not necessary, but they may be removed if they are symptomatic or for cosmetic reasons. 2. Actinic keratosis (4) Left Nasofacial Sulcus, Left Pentecostal, Mid Parietal Scalp (2) Erythematous scaly papules Patient was counseled regarding these sun-induced growths that can develop into squamous cell carcinoma if left untreated. Discussed treatment with cryotherapy. It was emphasized that any treated lesions that fail to resolve should be re-evaluated. Cryotherapy performed today; see procedure note Diagnosis: Actinic keratosis Indication: Precancerous Location: see skin exam Consent: Verbal consent was obtained and risks were discussed, including, but not limited to risks of scarring, darker or butt sawyer pigmentary changes, recurrence, incomplete removal and infection. Method: Liquid nitrogen was used to treat the lesion(s) with two 5-10 second freeze-thaw cycles. Eyes were shielded using cotton pad during procedure Number of lesions treated: 4 Post-procedure instructions: Instructions were given orally and in writing. The office will be contacted if the lesion fails to resolve despite treatment, or if a side effect develops such as abnormal crusting, scabbing, redness or tenderness Cryotherapy, skin lesion - Left Nasofacial Sulcus, Left Pentecostal, Mid Parietal Scalp (2) 3. Lentigines Scattered garcia macules in sun-exposed areas. The patient was informed that lentigines are benign pigmented lesions that occur on sun-exposed and sun-damaged skin. No treatment is necessary. Recommended regular use of broad spectrum sunscreen SPF 30 or higher 4. Neoplasm of unspecified behavior of bone, soft tissue, and skin (3) Left Pentecostal Hyperkeratotic papule Lesion biopsy Type of biopsy: [...] details: Photo taken Amount of lidocaine used: 0.5 cc Specimen A - Dermatopathology exam Differential Diagnosis: AK vs SCC Check Margins: yes Size of lesion: 0.8 x 0.8 cm Right Forearm - Posterior Hyperkeratotic papule Lesion biopsy Type of biopsy: [...] - Dermatopathology exam Differential Diagnosis: SCC vs verruca vs ISK Check Margins: No Size of lesion: 0.7 x 0.7 cm Left Upper Back [place] scaly plaque Lesion biopsy Type of biopsy: [...] Specimen C - Dermatopathology exam Differential Diagnosis: BCC vs SCC Check Margins: No Size of lesion: 1.1 x 1.0 cm 5. History of basal cell carcinoma (2) Right Mid Back, Right Preauricular Area No evidence of recurrence at BCC scar. The patient was counseled that scars from excisional sites of nonmelanoma skin cancers should be monitored closely for recurrence. The patient was instructed to contact the office for any new, changing, or symptomatic moles. The patient was also instructed to contact the office for any new lesions that develop within or around the previous surgery scar. 6. History of SCC (squamous cell carcinoma) of skin (2) Left Pentecostal, Mid Parietal Scalp No evidence of recurrence at SCC scar. The patient was counseled that scars from excisional sites of nonmelanoma skin cancers should be monitored closely for recurrence. The patient was instructed to contact the office for any new, changing, or symptomatic moles. The patient was also instructed to contact the office for any new lesions that develop within or around the previous surgery scar. Next Visit: 6 months documented in this encounter [facility] 04-11-2024 Note Transplant Clinic Patient : Vishal Duke; 63 y.o. Reason for Visit: History of renal transplant. 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 Marquez. CMV +/-. Notable history of AR/cardiac arrest/implanted ICD in 2020 Patient returns regarding [...] in the above HPI Chart Reviewed Historical: >>>>>>>>>>>>>>>>>>>>>>>>>>>>>>>>> >>>>>>>>>>>>>>>>>>>>>>>>>>>>>>> 10/06/2023 Patient returns regarding post transplant evaluation [...] bilateral nephrectomy by Dr Maldonado on 01/24/23 and all incision well healed without s/s infection. Pt eating / drinking well normal Bms and voiding. 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 he received DDRT on aug 16 2017 , uncomplicated. Hx; AR and had Pacer/Defib Placed. Pt following up [facility] cardiology Pt inpatient for ruptured renal cyst [...] Cardiology as scheduled. See PCP. See Dr Maldonado. Continue meds and labs. follow up 6 months. Chart Reviewed today: 02/09/23 DD Renal transplant on (08/15/2017) by Dr. Marquez. CMV +/-. Patient has recent history of an AR and had Pacer/Defib Placed. Patient here for follow up Nephrectomy Patient states he is feeling good with a 21 pound weight loss since bilat [place] kidney's removed. He states that he [...] - Follow up: [address] Maldonado and VALE Angelo in March as scheduled It has been explained that the patient is to follow regularly with their PCP in addition to all other providers involved in their care and to follow instructions provided by these respective offices. However, patient will contact the clinic if any transplant-pertaining questions, con (more content not included)... [facility] 03-21-2024 History of Present illness Narrative Images [...] getting the shingles vaccine. He saw his drain technician on Monday. His ejection fraction is up [...] He was advised to consult with his cnc router operator regarding the administration of the Shingrix vaccine. 2. Cardiac issues. He saw his drain technician on Monday. His ejection fraction is up [...] Hemoglobin A1c (Completed) documented in this encounter [facility] 03-18-2024 Note [facility] Cardiology Clinic Note Chief Complaint: Patient [...] RRR. No murmur, (more content not included)... [facility] 03-04-2024 Hospital Discharge instructions Patient Education [...] urethra. Follow these instructions at home: Take scyd-xim-iyipakl and prescription medicines only as told by [...] provider. Document Revised: 10/20/2021 Document Reviewed: 10/20/2021 [employer] Patient Education 2023 [employer]. Follow Up Care 01/29/2024 08:18:27 With:LEONARDA FRANK, Reji Farrell, URL Address: [facility] [address] , [place] [phone] When: Unknown Comments:2 yrs w/ PSA [facility] Andreea 03-04-2024 Note Patient Education Urology Benign [...] Follow these instructions at home: ??? Take npqg-bqr-lfzgkic and prescription medicines only as told by [...] do not get (more content not included)... [facility] 02-07-2024 Note The patient had a te stosterone level of 136 on 02/01/2024. His name was added to the low testosterone list for the month of January 2024. [facility] 02-02-[address] ekta Bowman notified to increase fluids to hydrate well and recheck standing lab order in 2 weeks due to elevated creatinine and Hgb of 17.0. Patient also advised he is currently being treated for shingles and will finish antibiotic on Monday. He states shingle starting to dry up now. He will let us know if anything changes and they aren't healing. [facility] 01-29-2024 History of Present illness Narrative [...] out too transplant team to make sure valtrex is Type 2 diabetes mellitus without complications (CMS/HCC) Immunodeficiency, unspecified (CMS/HCC) Chronic systolic (congestive) heart failure (CMS/HCC) Managed by cardiology Chronic obstructive pulmonary disease, unspecified (CMS/HCC) Cardiomyopathy, unspecified (CMS/HCC) Managed by cardiology documented in this encounter [facility] 01-26-2024 History of Present illness Narrative Images [...] Started after he was working outside, moving rocks SUBJECTIVE: MEDICATIONS: Current Outpatient Medications Medication Instructions [...] with lifestyle modifications documented in this encounter [facility] 01-11-2024 Evaluation + Plan note Extrac remedios [...] Endo Author:Ivan Rodriguez Jr., DO Date:01/11/24 Plan [place] [employer]hesi[employer] (ASA) physical status classification: Class III. Anesthetic Preoperative Plan: Anesthesia General, and -TIVA. Future Appointments Appointment Date:01/29/2024 10:30:00 AM Scheduled Provider:Reji BROWER MD Location:[facility] Appointment Type:URO Office Visit [facility] 09-26-2024 Hospital Discharge instructions Patient Education [...] reduce GERD symptoms. Medicines. These may include: ?Oxsw-dlo-stnpulo antacids. ?Medicines that make your stomach empty [...] may include: ?Fatty foods, like fried foods. ?Peach fruits, like oranges or lemon. ?Other foods [...] Do not drink alcohol. General instructions Take qyol-mob-wkqgwvn and prescription medicines only as told by [...] provider. Document Revised: 05/31/2022 Document Reviewed: 05/31/2022 [employer] Patient Education 2023 [employer]. 01/11/2024 10:20:44 Endoscopy, Care After Procedure [facility] Endoscopy Care After Procedure Please read the instructions outlined below and refer to this sheet in the next few weeks. These discharge instructions provide you with general information on caring for [facility] Your doctor may also give you specific [...] blood. Document Released: 11/15/2004 Document Re-Released: 09/25/2006 [employer] Patient Information 2010 [employer]. 01/11/2024 10:20:35 Colon Polyps Colon Polyps Colon [...] hard liquor (44 mL). General instructions Take oqkp-kkl-kgwmdjm and prescription medicines only as told by [...] provider. Document Revised: 07/22/2020 Document Reviewed: 07/22/2020 [employer] Patient Education 2023 [employer]. 01/11/2024 10:20:34 Colonoscopy, Care After Surgery Salam [...] Care 12/25/2023 10:22:05 With:Gladys FRANK, JIN Saez, [facility] Address: When: Unknown Comments:Call for any problems. Office will call to schedule follow up appointment [facility] 09-26-2024 NoteProgress Note-Physician Patient: VISHAL DUKE Age: 63 years Sex: Male : 1960 Associated Diagnoses: None Author: Ivan Orozco Jr., DO Postoperative Information Postoperative disposition: Postoperative disposition: Home. Optimetrix number: Optimetrix number [id number]. Anesthetic utilized: General. Physical Examination Vital Signs [...] to Ambulatory Surgery Unit, and To home ).[facility]:Result Comment: Electronically Signed By: Ivan Orozco Jr., DO\.br\Date and Time Signed: 01/11/24 11:27 [id number] NoteEndoscopic Procedure Report - Other Patient: VISHAL DUKE Age: 63 years Sex: Male : 1960 Associated Diagnoses: None Author: Xochilt Graham MD Pre-Procedure Procedure Date 01/11/2024 10:26:00 . Procedure Type: Colonoscopy with removal of tumor(s), polyp(s), or other lesion(s) by cold snare technique. Procedure provider Performed by Xochilt Graham MD. Current history and physical Reviewed. Kidney transplant ([id number]) on 01/01/2018 at 57 Years. Comments: 01/01/2020 12:00 EDT - Justin Leia LONG Pt has three kidneys Placement of stent in cardiac conduit ([id number]). Triple coronary bypass (277151766). Bilateral vasectomy (302319017). Colonoscopy (495154634).. Past Medical History No active or resolved past medical history items have been selected or recorded.. Family History Alzheimer's disease Mother . Procedure History Kidney transplant ([id number]) on 01/01/2018 at 57 Years. Comments: 01/01/2020 12:00 EDT - JustinLeia ferreira MA Pt has three kidneys Placement of stent in cardiac conduit ([id number]). Triple coronary bypass (096250782). Bilateral vasectomy (982879981). Colonoscopy (267434562).. Colorectal neoplasm risk assessment High risk Previous [...] bedtime), # 90 tab(s), Refills(s) 0, Pharmacy: [facility], 177.8, cm, 12/25/23 9:23:00 EDT, Height/Length [...] Normal examined terminal ileum Images Procedure images: Rec1_hd_video_2024_09_26T09_14_21_094.jpg Rec1_hd_video_2023__T09_14_07_725.jpg Rec1_hd_video__T09_13_15_291.jpg Rec1_hd_video_2023__T09_11_28_356.jpg Rec1_hd_video_2023__T09_11_20_920.jpg Rec1_hd_video_2023__T09_10_48_698.jpg Rec1_hd_video_2023__T09_08_29_068.jpg Rec1_hd_video_2023__T09__28_957.jpg Rec1_hd_video__T09_05_36_358.jpg (Inserted Image. Unable to dis (more content not included)...[facility] on [facility]:Result Comment: Electronically Signed By: Gladys FRANK, Xochilt Butler\.br\Date and Time Signed: 01/11/24 10:28 EDTOther Comment: Missing Attachment - attachment storage system not supported [id number] Can be viewed in source systemMissing Attachment - attachment storage system not supported [id number] Can be viewed [facility] systemMissing Attachment - attachment storage system not supported [id number] Can be viewed in source systemMissing Attachment - attachment storage system not supported [id number] Can be viewed in so ce systemMissing Attachment - attachment storage system not supported [id number] Can be viewed in source systemMissing Attachment - attachment storage system not supported 2534247 Can be viewed in source systemMissing Attachment - attachment storage system not supported [id number] Can be viewed in source systemMissing Attachment - attachment storage system not supported 9747541 Can be viewed in source systemMissing Attachment - attachment storage system not supported 5645071 Can be viewed in sourcesystemMissing Attachment - attachment storage system not supported [id number] Can be viewed in source systemMissing Attachment - attachment storage system not supported [id number] Can be viewed in source sy stemMissing Attachment - attachment storage system not supported [id number] Can be viewed in source systemMissing Attachment - attachment storage system not supported [id number] Can be viewed in source [id number] NotePatient Education - Text Endoscopy Care After Procedure Please read the instructions outlined below and refer to this sheet in the next few weeks. These discharge instructions provide you with general information on caring for yourself [facility] Your doctor may also give you specific [...] Document Re-Released: 09/25/2006 ExitCare? Patient Information ?2009 iCharts. Colonoscopy Care After Surgery Please read the instructions outlined below and refer to this sheet in the next few weeks. These discharge instructions provide you with general information on caring for yourself [facility] [place]. Your doctor may also give you specific [...] weakness can develop ove (more content not included)...[facility] NoteEndoscopic Procedure Report - Other Patient: VISHAL [...] Otherwise normal examined duodenum Images Procedure images: Rec1_hd_video_2023__T08_45_16_915.jpg Rec1_hd_video_2023__26T08_45_23_273.jpg Rec1_hd_video_2023__T08_45_03_184.jpg Rec1_hd_video__T08_44_52_949.jpg Rec1_hd_video__T08_43_34_038.jpg Rec1_hd_video__T08_43_22_197.jpg Rec1_hd_video_2023__T08_43_03_991.jpg Rec1_hd_video__T08_42_47_702.jpg Rec1_hd_video__T08_41_40_816.jpg Rec1_hd_video__T08_41_35_166.jpg Rec1_hd_video__T08_41_25_447.jpg . Post-Procedure Complications: none. Estimated blood loss: [...] follow in GI clinic in 1-2 after [facility]Comment on above:Result Comment: Electronically Signed By: Gladys FRANK, Xochilt Butler\.br\Date and Time Signed: 01/11/24 09:38 EDTOther Comment: Missing Attachment - attachment storage system not supported [id number] Can be viewed in source system Missing Attachment - attachment storage system not supported [id number] Can be viewed in source systemMissing Attachment - attachment storage system not supported [id number] Can be viewed in source systemMissing Attachment - attachment storage system not supported 1702648 Can be viewed in source systemMissing Attachment - attachment storage system not supported 9001401 Can be viewed in source systemMissing Attachment - attachment storage system not supported 0137985 Can be viewed in source systemMissing Attachment - attachment storage system not supported 7555088 Can be viewed in source systemMissing Attachment - attachment storage system not supported 4956848 Can be viewed in source system Missing Attachment - attachment storage system not supported 8695032 Can be viewed in source systemMissing Attachment - attachment storage system not supported 2872490 Can be viewed in source systemMissing Attachment - attachment storage system not supported 8781420 Can be viewed in source [id number] NoteHistory and Physical Patient: VISHAL DUKE Age: [...] bedtime), # 90 tab(s), Refills(s) 0, Pharmacy: [facility], 177.8, cm, 12/25/23 9:23:00 EDT, Height/Length [...] BPH with urinary obstruction / SNOMED CT 0394922594 / Confirmed Hypertension / SNOMED CT 4543823068 / Confirmed Renal failure / SNOMED CT 65485319 / Confirmed polycystic kidney disease / SNOMED CT 723841220 / Confirmed Hyperlipidemia / SNOMED CT 45634056 / Confirmed Microhematuria / SNOMED CT 984075970 / Confirmed Nocturia / SNOMED CT 410884838 / Confirmed Kidney transplanted / SNOMED CT 8785817119 / Confirmed Myocardial infarct / SNOMED CT 13119759 / Confirmed Screen for colon cancer / SNOMED CT 385960906 / Confirmed History of colon polyps / SNOMED CT 2011385421 / Confirmed Histories Past Medical History: No active or resolved past medical history items have been selected or recorded. Family History: Mother Alzheimer's disease Procedure history: Kidney transplant ([id number]) on 01/01/2018 at 57 Years. Comments: 01/01/2020 12:00 Leia Molina MA Pt has three kidneys Placement of stent in cardiac conduit (6181925211). Triple coronary bypass (046825556). Bilateral vasectomy (732566760). Colonoscopy (292390014). Social History Social & Psychosocial Habits Alcohol [...] of hyperplastic polyps, GERD Plan: -[facility]GD and [facility]oscopy[facility] [place]Comment on above:Result Comment: Electronically Signed By: Gladys FRANK, Xochilt Butler\.adam\Date and Time Signed: 01/11/24 09:25 [id number] NoteProgress Note-Physician Patient: VISHAL DUKE Age: 63 [...] bedtime), # 90 tab(s), Refills(s) 0, Pharmacy: [facility], 177.8, cm, 12/25/23 9:23:00 EDT, Height/Length [...] BPH with urinary obstruction / SNOMED CT 6306352928 / Confirmed History of colon polyps / SNOMED CT 6012222257 / Confirmed Hyperlipidemia / SNOMED CT 19269934 / Confirmed Hypertension / SNOMED CT 0219346137 / Confirmed Kidney transplanted / SNOMED CT 6821466047 / Confirmed Microhematuria / SNOMED CT 894250504 / Confirmed Myocardial infarct / SNOMED CT 39331127 / Confirmed Nocturia / SNOMED CT 336542770 / Confirmed polycystic kidney disease / SNOMED CT 807395927 / Confirmed Renal failure / SNOMED CT 82572642 / Confirmed Screen for colon cancer / SNOMED CT 372908651 / Confirmed Histories Past Medical History: No active or resolved past medical history items have been selected or recorded. Procedure history: Kidney transplant ([id number]) on 01/01/2018 at 57 Years. Comments: 01/01/2020 12:00 Leia Molina MA Pt has three kidneys Placement of (more content not included)...[facility]:Result Comment: Electronically Signed By: Ivan Orozco Jr., DO\Date and Time Signed: 01/11/24 08:41 [id number] Telephone encounter Note* Telephone Encounter - Rosa M Gonzales MD - 12/08/2023 12:59 PM EDT [facility]. [id number] Miscellaneous Notes* Telephone Encounter - Rosa M Gonzales MD - 12/08/2023 12:59 PM EDT Refills sent. documented in this encounterM[facility] [id number] Chief Complaint: [...] bruits present. CARDIAC: S1, (more content not included)...[facility] 06-06-2023 Hospital Discharge instructions Follow Up Care 06/06/2023 12:55:17 With:LEONARDA FRANKReji, URL Address: [facility] [address] [place] [address]- [phone] When: Unknown [facility] 02-13-2023 NoteCARDIAC STRESS TEST Requesting Physician: Procedure Date:05/30/2022 [...] interpreted, and relayed in a separate dictation.[id number] Hospital Discharge instructions Patient Education 01/17/2022 12:05:57 [...] urethra. Follow these instructions at home: Take ovwa-tab-hazukge and prescription medicines only as told by [...] 04/03/2006 Document Revised: 02/26/2019 Document Reviewed: 05/08/2017 [employer] Patient Education [employer]st[employer]. Follow Up Care 11/09/2021 10:07:55 With:LEONARDA FRANK, Reji Farrell, URL Address: [facility] [address] [place] [address] [phone] When:01/18/2024 Comments:PSA [facility] 10-03-2022 Evaluation + Plan note Diagnostic Tests Pending * PSA Total 01/17/22 [facility] 02-15-2022 NotePROCEDURE: [facility] VCT 64, 5.0 mm slice axial images [...] and signed by Anjum Remy on 06/01/2021 1051[facility]08-21-2021 NoteMR#: [id number] [facility] Pt. Name: Vishal Duke Waldemar Admitted: 12/02/2020 Discharged: 12/04/2020 Date of : [...] Herrera MD Date Trans: 12/05/2020 05:37 A/mmo [id number] cc: Rosa M Gonzales M.D. [address] [facility] ([place], [place]) [facility] [address]08-18-2021 NoteMR#: [id number] [facility] Pt. Name: Vishal Duke Date of Service: 12/02/2020 Room #: 4CD [id number] Birthdate: 1960 Referring Physician: CONSULTATION Reason for [...] disease, gout, GERD, hypertension, CAD status post AR and 2 stents, HLD, Covid pneumonia Past surgical history: AV fistula left arm, cardiac catheterization 10/29/2020, renal transplant 2017, cardiac catheterization 2017 with 2 stent placements, [...] documentation from me. Date Dict: 12/02/2020/05:52 P/Angie Ria Watkins, DO Date Trans: 12/02/2020 05:52 P/ [id number] cc: Rosa M Gonzales M.D. [address] [facility] ([place], [place]) [address] [place] [address]Tzt[facility]05-06-2021 NoteMR#: [id number] [facility] Pt. Name: Vishal Duke Admitted: 08/02/2020 [...] x2 in June. The patient's son and rimxabff-tz-gdi were symptomatic just before him. The patient was complaining of fatigue and mild body aches. The patient also developed cough and mild shortness of breath. His dyspnea was initially with exertion, but progressed to minimal activity. After he spoke with his cnc router operator, he decreased his Myfortic dose and received [...] Ferreira M.D. Date Trans: 08/20/2020 05:24 A/patrizia [id number] cc: Rosa M Gonzales M.D. [address] [place], [place] [address]Jessica [facility] [address]VmxParkview Health Montpelier HospitalEvaluation + Plan note Future Appointments Appointment Date:01/11/2024 09:30:00 AM Scheduled Provider: Location:[facility] Services Appointment Type:Surgery FT Appointment Date:01/29/2024 10:30:00 AM Scheduled Provider:Reji BROWER MD Location:[facility] Appointment Type:URO Office Visit [facility] Evaluation + Plan note Future Appointments Appointment Date:03/04/2024 01:30:00 PM Scheduled Provider:Reji BROWER MD Location:[facility] Appointment Type:URO Office Visit [facility] evaluation note* Diagnosis Encounter for immunization- Primary Tinea corporis Dermatophytosis of the body Type 2 diabetes mellitus without complications ([facility]/HCC) [facility]* Diagnosis Polycystic kidney disease, autosomal dominant- Primary Congenital polycystic kidney, autosomal dominant Kidney transplant status ([facility]) Hypokalemia Hypopotassemia Ischemic cardiomyopathy ([facility]) Other specified forms of chronic ischemic heart disease Add Pulmonary fibrosis, unspecified (J84.10) Atherosclerosis [place] coronary artery of [place] heart with angina pectoris (CMS/HCC) Add Atherosclerosis of aorta (I70.0) Atherosclerosis of aorta Add 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 pectoris ([facility]/HCC) Essential hypertension ([facility]/HCC) Unspecified essential hypertension Status post insertion of drug-eluting stent into left anterior descending (LAD) artery for coronary artery disease Immunosuppression ([facility]) History of kidney transplant ([facility]/HCC) Kidney replaced by transplant Wellness examination- Primary Simple chronic bronchitis (CMS/HCC) Simple chronic bronchitis Chronic systolic congestive heart failure ([facility]/HCC) 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 pectoris ([facility]/HCC) Essential hypertension ([facility]/HCC) Unspecified essential hypertension Gastroesophageal reflux disease without esophagitis Esophageal reflux PKD (polycystic kidney disease) Congenital polycystic kidney, unspecified type Immunosuppression ([facility]/HCC) History of kidney transplant ([facility]/HCC) Kidney replaced by transplant Mixed hyperlipidemia (CMS/HCC) Mixed hyperlipidemia Atherosclerotic 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 pectoris (CMS/HCC) Ventricular fibrillation (CMS/HCC) Ventricular fibrillation Left lateral epicondylitis- Primary Simple chronic bronchitis (CMS/HCC) Simple chronic bronchitis Chronic systolic congestive heart failure (CMS/HCC) 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 pectoris (CMS/HCC) Essential [...] Cardiomyopathy, unspecified (CMS/HCC) documented in this encounter [facility]* Diagnosis Polycystic kidney disease, autosomal dominant- Primary Congenital polycystic kidney, autosomal dominant Kidney transplant status ([facility]/HCC) Hypokalemia Hypopotassemia Ischemic cardiomyopathy (CMS/HCC) Other specified forms of chronic ischemic heart disease Add Pulmonary fibrosis, unspecified (J84.10) Atherosclerosis [place] coronary artery of [place] heart with angina pectoris (CMS/HCC) Add Atherosclerosis of aorta (I70.0) Atherosclerosis of aorta Add 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 pectoris (CMS/HCC) Essential hypertension (CMS/HCC) Unspecified essential hypertension Status post insertion of drug-eluting stent into left anterior descending (LAD) artery for coronary artery disease Immunosuppression ([facility]/HCC) History of kidney transplant (/HCC) Kidney replaced by transplant Wellness examination- Primary Simple chronic bronchitis (CMS/HCC) Simple chronic bronchitis Chronic systolic congestive heart failure (CMS/HCC) 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 pectoris (CMS/HCC) Essential hypertension (CMS/HCC) Unspecified essential hypertension Gastroesophageal reflux disease without esophagitis Esophageal reflux PKD (polycystic kidney disease) Congenital polycystic kidney, unspecified type Immunosuppression ([facility]/HCC) History of kidney transplant ([facility]/HCC) Kidney replaced by transplant Mixed hyperlipidemia (CMS/HCC) Mixed hyperlipidemia Atherosclerotic 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 pectoris (CMS/HCC) Ventricular fibrillation (CMS/HCC) Ventricular fibrillation Left lateral epicondylitis- Primary Simple chronic bronchitis (CMS/HCC) Simple chronic bronchitis Chronic systolic congestive heart failure (CMS/HCC) 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 pectoris (CMS/HCC) Essential hypertension (CMS/HCC) Unspecified essential hypertension Status post insertion of drug-eluting stent into left anterior descending (LAD) artery for coronary artery disease Immunosuppression (CMS/HCC) Mixed hyperlipidemia (CMS/HCC) Mixed hyperlipidemia Herpes zoster without complication- Primary Elevated fasting glucose Impaired fasting glucose documented in this encounter [facility]* Diagnosis History of kidney transplant (CMS/HCC) Kidney replaced by transplant documented in this encounter [facility]* Diagnosis Polycystic kidney disease, autosomal dominant- Primary Congenital polycystic kidney, autosomal dominant Kidney transplant status (CMS/HCC) Hypokalemia Hypopotassemia Ischemic cardiomyopathy (CMS/[facility]) Other specified forms of chronic ischemic heart disease Add Pulmonary fibrosis, unspecified (J84.10) Atherosclerosis of [place] coronary artery of [place] heart with angina pectoris (CMS/HCC) Add Atherosclerosis of aorta (I70.0) Atherosclerosis of aorta Add 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 pectoris (CMS/HCC) Essential hypertension (CMS/HCC) Unspecified essential hypertension Status post insertion of drug-eluting stent into left anterior descending (LAD) artery for coronary artery disease Immunosuppression ([facility]) History of kidney transplant (/[facility]) Kidney replaced by transplant Wellness examination- Primary Simple chronic bronchitis (CMS/HCC) Simple chronic bronchitis Chronic systolic congestive heart failure ([facility]/HCC) 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 pectoris (CMS/HCC) Essential hypertension ([facility]/HCC) Unspecified essential hypertension Gastroesophageal reflux disease without esophagitis Esophageal reflux PKD (polycystic kidney disease) Congenital polycystic kidney, unspecified type Immunosuppression ([facility]) History of kidney transplant ([facility]/HCC) Kidney replaced by transplant Mixed hyperlipidemia (CMS/HCC) Mixed hyperlipidemia Atherosclerotic 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 pectoris (CMS/HCC) Ventricular fibrillation (CMS/HCC) Ventricular fibrillation Left lateral epicondylitis- Primary Simple chronic bronchitis (CMS/HCC) Simple chronic bronchitis Chronic systolic congestive heart failure (CMS/HCC) 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 pectoris (CMS/HCC) Essential hypertension (CMS/[facility]) Unspecified essential hypertension Status post insertion of drug-eluting stent into left anterior descending (LAD) artery for coronary artery disease Immunosuppression (CMS/HCC) Mixed hyperlipidemia (CMS/HCC) Mixed hyperlipidemia Seborrheic keratosis- Primary Actinic keratosis Lentigines Neoplasm of unspecified behavior of bone, soft tissue, and skin History of basal cell carcinoma Personal history of other malignant neoplasm of skin History of SCC (squamous cell carcinoma) of skin Personal history of other malignant neoplasm of skin documented [facility] encounter [facility]* Diagnosis Polycystic kidney disease, autosomal dominant- Primary Congenital polycystic kidney, autosomal dominant Kidney transplant status (CMS/HCC) Hypokalemia Hypopotassemia Ischemic cardiomyopathy (CMS/HCC) Other specified forms of chronic ischemic heart disease Add Pulmonary fibrosis, unspecified (J84.10) Atherosclerosis of [place] coronary artery of [place] heart with angina pectoris (CMS/HCC) Add Atherosclerosis of aorta (I70.0) Atherosclerosis of aorta Add 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 pectoris (CMS/HCC) Essential hypertension (CMS/HCC) Unspecified essential hypertension Status post insertion of drug-eluting stent into left anterior descending (LAD) artery for coronary artery disease Immunosuppression (CMS/HCC) History of kidney transplant (CMS/HCC) Kidney replaced by transplant Wellness examination- Primary Simple chronic bronchitis (CMS/HCC) Simple chronic bronchitis Chronic systolic congestive heart failure (CMS/HCC) 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 pectoris (CMS/HCC) Essential hypertension (CMS/HCC) Unspecified essential hypertension Gastroesophageal reflux disease without esophagitis Esophageal reflux PKD (polycystic kidney disease) Congenital polycystic kidney, unspecified type Immunosuppression (CMS/HCC) History of kidney transplant (CMS/HCC) Kidney replaced by transplant Mixed hyperlipidemia (CMS/HCC) Mixed hyperlipidemia Atherosclerotic 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 pectoris (CMS/HCC) Ventricular fibrillation (CMS/HCC) Ventricular fibrillation Left lateral epicondylitis- Primary Simple chronic bronchitis (CMS/HCC) Simple chronic bronchitis Chronic systolic congestive heart failure (CMS/HCC) 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 pectoris (CMS/HCC) Essential hypertension (CMS/HCC) Unspecified essential hypertension Status post insertion of drug-eluting stent into left anterior descending (LAD) artery for coronary artery disease Immunosuppression (CMS/HCC) Mixed hyperlipidemia (CMS/HCC) Mixed hyperlipidemia 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- Primary documented in [facility] encounter [facility]* Diagnosis Polycystic kidney disease, autosomal dominant- Primary Congenital polycystic kidney, autosomal dominant Kidney transplant status (CMS/HCC) Hypokalemia Hypopotassemia Ischemic cardiomyopathy (CMS/HCC) Other specified forms of chronic ischemic heart disease Add Pulmonary fibrosis, unspecified (J84.10) Atherosclerosis of [place] coronary artery of [place] heart with angina pectoris (CMS/HCC) Add Atherosclerosis of aorta (I70.0) Atherosclerosis of aorta Add 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 pectoris (CMS/HCC) Essential hypertension (CMS/HCC) Unspecified essential hypertension Status post insertion of drug-eluting stent into left anterior descending (LAD) artery for coronary artery disease Immunosuppression (CMS/HCC) History of kidney transplant (CMS/HCC) Kidney replaced by transplant Wellness examination- Primary Simple chronic bronchitis (CMS/HCC) Simple chronic bronchitis Chronic systolic congestive heart failure (CMS/HCC) 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 pectoris (CMS/HCC) Essential hypertension (CMS/HCC) Unspecified essential hypertension Gastroesophageal reflux disease without esophagitis Esophageal reflux PKD (polycystic kidney disease) Congenital polycystic kidney, unspecified type Immunosuppression (CMS/HCC) History of kidney transplant (CMS/HCC) Kidney replaced by transplant Mixed hyperlipidemia (CMS/HCC) Mixed hyperlipidemia Atherosclerotic 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 pectoris (CMS/HCC) Ventricular fibrillation (CMS/HCC) Ventricular fibrillation Left lateral epicondylitis- Primary Simple chronic bronchitis (CMS/HCC) Simple chronic bronchitis Chronic systolic congestive heart failure (CMS/HCC) 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 pectoris (CMS/HCC) Essential hypertension (CMS/HCC) Unspecified essential hypertension Status post insertion of drug-eluting stent into left anterior descending (LAD) artery for coronary artery disease Immunosuppression (CMS/HCC) Mixed hyperlipidemia (CMS/HCC) Mixed hyperlipidemia Basal cell carcinoma of skin of other part of trunk- Primary documented in this encounter [facility]Evaluation note* Diagnosis Polycystic kidney disease, autosomal dominant- Primary Congenital polycystic kidney, autosomal dominant Kidney transplant status (HCC) Hypokalemia Hypopotassemia Ischemic cardiomyopathy Other specified forms of chronic ischemic heart disease Add Pulmonary fibrosis, unspecified (J84.10) Atherosclerosis of [place] coronary artery of [place] heart with angina pectoris Add Atherosclerosis of aorta (I70.0) Atherosclerosis of aorta Add 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 pectoris (HCC) Essential hypertension Unspecified essential hypertension Status post insertion of drug-eluting stent into left anterior descending (LAD) artery for coronary artery disease Immunosuppression (HCC) History of kidney transplant (HCC) Kidney replaced by transplant Wellness examination- Primary Simple chronic bronchitis (HCC) Simple chronic bronchitis Chronic systolic congestive heart failure (HCC) 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 pectoris (HCC) Essential hypertension Unspecified essential hypertension Gastroesophageal reflux disease without esophagitis Esophageal reflux PKD (polycystic kidney disease) Congenital polycystic kidney, unspecified type Immunosuppression (HCC) History of kidney transplant (HCC) Kidney replaced by transplant Mixed hyperlipidemia Mixed hyperlipidemia Atherosclerotic 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 pectoris Ventricular fibrillation (HCC) Ventricular fibrillation Left lateral epicondylitis- Primary Simple chronic bronchitis (HCC) Simple chronic bronchitis Chronic systolic congestive heart failure (HCC) 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 pectoris (HCC) Essential hypertension Unspecified essential hypertension Status post insertion of drug-eluting stent into left anterior descending (LAD) artery for coronary artery disease Immunosuppression (HCC) Mixed hyperlipidemia Mixed hyperlipidemia Wellness examination- Primary Simple chronic bronchitis (HCC) Simple chronic bronchitis Post-COVID chronic dyspnea Chronic systolic congestive heart failure (HCC) Essential hypertension Unspecified essential hypertension End-stage renal disease (HCC) PKD (polycystic kidney disease) Congenital polycystic kidney, unspecified type Stage 3a chronic kidney disease ([facility]-HCC) History of kidney transplant (HCC) Kidney replaced by transplant Dizziness Dizziness and giddiness Type 2 diabetes mellitus with diabetic cataract (HCC) Type II or unspecified type diabetes mellitus with ophthalmic manifestations, not stated as uncontrolled Type 2 diabetes mellitus with diabetic polyneuropathy (HCC) Cardiomyopathy, unspecified ([facility]) documented in [facility] encounter [facility]* Diagnosis Polycystic kidney disease, autosomal dominant- Primary Congenital polycystic kidney, autosomal dominant Kidney transplant status (HCC) Hypokalemia Hypopotassemia Ischemic cardiomyopathy Other specified forms of chronic ischemic heart disease Add Pulmonary fibrosis, unspecified (J84.10) Atherosclerosis of [place] coronary artery of [place] heart with angina pectoris Add Atherosclerosis of aorta (I70.0) Atherosclerosis of aorta Add 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 pectoris (HCC) Essential hypertension Unspecified essential hypertension Status post insertion of drug-eluting stent into left anterior descending (LAD) artery for coronary artery disease Immunosuppression (HCC) History of kidney transplant (HCC) Kidney replaced by transplant Wellness examination- Primary Simple chronic bronchitis (HCC) Simple chronic bronchitis Chronic systolic congestive heart failure (HCC) 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 pectoris (HCC) Essential hypertension Unspecified essential hypertension Gastroesophageal reflux disease without esophagitis Esophageal reflux PKD (polycystic kidney disease) Congenital polycystic kidney, unspecified type Immunosuppression (HCC) History of kidney transplant (HCC) Kidney replaced by transplant Mixed hyperlipidemia Mixed hyperlipidemia Atherosclerotic 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 pectoris Ventricular fibrillation (HCC) Ventricular fibrillation Left lateral epicondylitis- Primary Simple chronic bronchitis (HCC) Simple chronic bronchitis Chronic systolic congestive heart failure (HCC) 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 pectoris (HCC) Essential hypertension Unspecified essential hypertension Status post insertion of drug-eluting stent into left anterior descending (LAD) artery for coronary artery disease Immunosuppression (HCC) Mixed hyperlipidemia Mixed hyperlipidemia Wellness examination- Primary Simple chronic bronchitis (HCC) [...] with diabetic polyneuropathy (HCC) Cardiomyopathy, unspecified (HCC) Seborrheic keratosis- Primary Lentigines History of basal cell carcinoma Personal history of other malignant neoplasm of skin Actinic keratosis Neoplasm of unspecified behavior of bone, soft tissue, and skin Seborrheic keratosis, inflamed documented in this encounter [facility]* Diagnosis Polycystic kidney disease, autosomal dominant- Primary Congenital polycystic kidney, autosomal dominant Kidney transplant status (HCC) Hypokalemia Hypopotassemia Ischemic cardiomyopathy Other specified forms of chronic ischemic heart disease Add Pulmonary fibrosis, unspecified (J84.10) Atherosclerosis of [place] coronary artery of [place] heart with angina pectoris Add Atherosclerosis of aorta (I70.0) Atherosclerosis of aorta Add 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 pectoris (HCC) Essential hypertension Unspecified essential hypertension Status post insertion of drug-eluting stent into left anterior descending (LAD) artery for coronary artery disease Immunosuppression (HCC) History of kidney transplant (HCC) Kidney replaced by transplant Wellness examination- Primary Simple chronic bronchitis (HCC) Simple chronic bronchitis Chronic systolic congestive heart failure (HCC) 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 pectoris (HCC) Essential hypertension Unspecified essential hypertension Gastroesophageal reflux disease without esophagitis Esophageal reflux PKD (polycystic kidney disease) Congenital polycystic kidney, unspecified type Immunosuppression (HCC) History of kidney transplant (HCC) Kidney replaced by transplant Mixed hyperlipidemia Mixed hyperlipidemia Atherosclerotic 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 pectoris Ventricular fibrillation (HCC) Ventricular fibrillation Left lateral epicondylitis- Primary Simple chronic bronchitis (HCC) Simple chronic bronchitis Chronic systolic congestive heart failure (HCC) 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 pectoris (HCC) Essential hypertension Unspecified essential hypertension Status post insertion of drug-eluting stent into left anterior descending (LAD) artery for coronary artery disease Immunosuppression (HCC) Mixed hyperlipidemia Mixed hyperlipidemia Wellness examination- Primary Simple chronic bronchitis (HCC) Simple chronic bronchitis Post-COVID chronic dyspnea Chronic systolic congestive heart failure (HCC) Essential hypertension Unspecified essential hypertension End-stage renal disease (HCC) PKD (polycystic kidney disease) Congenital polycystic kidney, unspecified type Stage 3a chronic kidney disease ([facility]) History of kidney transplant (HCC) Kidney replaced by transplant Dizziness Dizziness and giddiness Type 2 diabetes mellitus with diabetic cataract (HCC) Type II or unspecified type diabetes mellitus with ophthalmic manifestations, not stated as uncontrolled Type 2 diabetes mellitus with diabetic polyneuropathy (HCC) Cardiomyopathy, unspecified ([facility]) Dizziness- Primary Dizziness and giddiness Orthostatic hypotension Gastroesophageal reflux disease without esophagitis Esophageal reflux documented in this encounter [facility]* Diagnosis Polycystic kidney disease, autosomal dominant- Primary Congenital polycystic kidney, autosomal dominant Kidney transplant status (HCC) Hypokalemia Hypopotassemia Ischemic cardiomyopathy Other specified forms of chronic ischemic heart disease Add Pulmonary fibrosis, unspecified (J84.10) Atherosclerosis of [place] coronary artery of [place] heart with angina pectoris Add Atherosclerosis of aorta (I70.0) Atherosclerosis of aorta Add 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 pectoris (HCC) Essential hypertension Unspecified essential hypertension Status post insertion of drug-eluting stent into left anterior descending (LAD) artery for coronary artery disease Immunosuppression (HCC) History of kidney transplant (HCC) Kidney replaced by transplant Wellness examination- Primary Simple chronic bronchitis (HCC) Simple chronic bronchitis Chronic systolic congestive heart failure (HCC) 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 pectoris (HCC) Essential hypertension Unspecified essential hypertension Gastroesophageal reflux disease without esophagitis Esophageal reflux PKD (polycystic kidney disease) Congenital polycystic kidney, unspecified type Immunosuppression (HCC) History of kidney transplant (HCC) Kidney replaced by transplant Mixed hyperlipidemia Mixed hyperlipidemia Atherosclerotic 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 pectoris Ventricular fibrillation (HCC) Ventricular fibrillation Left lateral epicondylitis- Primary Simple chronic bronchitis (HCC) Simple chronic bronchitis Chronic systolic congestive heart failure (HCC) 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 pectoris (HCC) Essential hypertension Unspecified essential hypertension Status post insertion of drug-eluting stent into left anterior descending (LAD) artery for coronary artery disease Immunosuppression (HCC) Mixed hyperlipidemia Mixed hyperlipidemia Wellness examination- Primary Simple chronic bronchitis (HCC) Simple chronic bronchitis Post-COVID chronic dyspnea Chronic systolic congestive heart failure (HCC) Essential hypertension Unspecified essential hypertension End-stage renal disease (HCC) PKD (polycystic kidney disease) Congenital polycystic kidney, unspecified type Stage 3a chronic kidney disease ([facility]) History of kidney transplant (HCC) Kidney replaced by transplant Dizziness Dizziness and giddiness Type 2 diabetes mellitus with diabetic cataract (HCC) Type II or unspecified type diabetes mellitus with ophthalmic manifestations, not stated as uncontrolled Type 2 diabetes mellitus with diabetic polyneuropathy (HCC) Cardiomyopathy, unspecified (HCC) Dizziness- Primary Dizziness and giddiness Orthostatic hypotension Gastroesophageal reflux disease without esophagitis Esophageal reflux History of kidney transplant (HCC) Kidney replaced by transplant documented in this [facility] [...] * Following discharge he saw his regular [facility] by his drain technician to agreed with and endorsed the care we rendered. The device was interrogated it in their office and it appears to be functioning appropriately. Because of all the above he is pleased with his care. He'll be following up henceforth with the [facility] drain technician and we advised him were always happy to participate in his care if he needs help. I believe his ICD will be interrogated and managed through their office. We also note thathis renal transplant was not injured as a result of the hospitalization and contrast administrationand/or antibiotic therapy because of this he is pleased. [facility] [address] DO Work Phone: Hospital course Narrative No data available for this section [facility] Hospital Discharge instructions No data available for this section [facility] Progress note No data available for this section [facility] Chief Complaint VISHAL DUKE is being [...] section and content) DATE CREATED AUTHOR 04/25/2021 [email or web address] DATE CREATED AUTHOR AUTHOR'S ORGANIZ ATION 05/10/2021 [facility] DATE CREATED AUTHOR AUTHOR'S ORGANIZ ATION 07/18/2021 [facility] DATE CREATED AUTHOR AUTHOR'S ORGANIZ ATION 01/17/2022 [facility] dical Specialist DATE CREATED AUTHOR AUTHOR'S ORGANIZ ATION 08/25/2022 [facility] DATE CREATED AUTHOR AUTHOR'S ORGANIZ ATION 01/19/2024 [facility] DATE CREATED AUTHOR AUTHOR'S ORGANIZ ATION 03/06/2024 [facility] DATE CREATED AUTHOR AUTHOR'S ORGANIZ ATION 03/07/2024 Duran Marquette [facility] DATE CREATED AUTHOR AUTHOR'S ORGANIZ ATION 11/16/2024 [facility] DATE CREATED AUTHOR AUTHOR'S ORGANIZ ATION 12/05/2024 [facility] dical Specialists EPIC Care Team (unrecognized sect ion and content) Loan Documentation Specialist Relationship Specialty Start Date End Date Rosa M Gonzales MD [address] [facility] [place] [place] [address] PCP - ACO Reach 09/08/22 Rosa M Gonzales MD [address] [facility] [place] [place] [address] PCP - General Family Medicine 10/25/22 Rosa M Platt RN Registered Nurse Family Medicine 03/01/23 Loan Documentation Specialist Relationship Specialty Start Date End Date Rosa M Gonzales MD [address] [place] [address] PCP - General Family Medicine 10/25/22 Rosa M Gonzales MD [address] [place] [address] PCP - ACO Reach 08/16/23 Rosa M Platt RN Registered Nurse Family Medicine 03/01/23 Loan Documentation Specialist Relationship Specialty Start Date End Date Rosa M Gonzales MD [address] [place] [address] PCP - General Family Medicine 10/25/22 Rosa M Gonzales MD [address] [place] [address] PCP - ACO Reach 08/16/23 Rosa M Platt, RN Registered Nurse Family Medicine 03/01/23 Loan Documentation Specialist Relationship Specialty Start Date End Date Rosa M Gonzales MD [address] [place] [address] PCP - General Family Medicine 10/25/22 Rosa M Gonzales MD [address] [place] [address] PCP - ACO Reach 08/16/23 Rosa M Platt, RN Registered Nurse Family Medicine 03/01/23 Loan Documentation Specialist Relationship Specialty Start Date End Date Rosa M Gonzales MD [address] [place] [address] PCP - General Family Medicine 10/25/22 Rosa M Gonzales MD [address] [place] [address] PCP - ACO Reach 08/16/23 Rosa M Platt, RN Registered Nurse Family Medicine 03/01/23 Loan Documentation Specialist Relationship Specialty Start Date End Date Rosa M Gonzales MD [address] [place] [address] PCP - General Family Medicine 10/25/22 Rosa M Gonzales MD [address] [place] [address] PCP - ACO Reach 08/16/23 Rosa M Platt, RN Registered Nurse Family Medicine 03/01/23 Loan Documentation Specialist Relationship Specialty Start Date End Date Rosa M Gonzales MD [address] [place] [address] PCP - General Family Medicine 10/25/22 Rosa M Gonzales MD [address] [place] [address] PCP - ACO Reach 08/16/23 Rosa M Platt, TATO Registered Nurse Family Medicine 03/01/23 Loan Documentation Specialist Relationship Specialty Start Date End Date Rosa M Gonzales MD [address] [place] [address] PCP - General Family Medicine 10/25/22 Rosa M Gonzaels MD [address] [place] [address] PCP - ACO Reach 08/16/23 Rosa M Platt, RN Registered Nurse Family Medicine 03/01/23 Loan Documentation Specialist Relationship Specialty Start Date End Date Rosa M Gonzales MD [address] [place] [address] PCP - General Family Medicine 10/25/22 Rosa M Gonzales MD [address] [place] [address] PCP - ACO Reach 08/16/23 Rosa M Platt, TATO Registered Nurse Family Medicine 03/01/23 Loan Documentation Specialist Relationship Specialty Start Date End Date Rosa M Gonzales MD [address] [place] [address] PCP - General Family Medicine 10/25/22 Rosa M Gonzales MD [address] [place] [address] PCP - ACO Reach 08/16/23 Rosa M Platt RN Registered Nurse Family Medicine 03/01/23 Loan Documentation Specialist Relationship Specialty Start Date End Date Rosa M Gonzales MD [address] [place] [address] PCP - General Family Medicine 10/25/22 Rosa M Gonzales MD [address] [place] [address] PCP - ACO Reach 08/16/23 Rosa M Platt RN Registered Nurse Family Medicine 03/01/23 Loan Documentation Specialist Relationship Specialty Start Date End Date Rosa M Gonzales MD [address] [place] [address] PCP - General Family Medicine 10/25/22 Rosa M Gonzales MD [address] [place] [address] PCP - ACO Reach 08/16/23 Rosa M Platt, TATO Registered Nurse Family Medicine 03/01/23 Loan Documentation Specialist Relationship Specialty Start Date End Date Rosa M Gonzales MD [address] [place] [address] PCP - General Family Medicine 10/25/22 Rosa M Gonzales MD [address] [place] [address] PCP - ACO Reach 05/31/24 Rosa M Platt, RN Registered Nurse Family Medicine 03/01/23 Loan Documentation Specialist Relationship Specialty Start Date End Date Rosa M Gonzales MD [address] [place] [address] PCP - General Family Medicine 10/25/22 Rosa M Gonzales MD [address] [place] [address] PCP - ACO Reach 05/31/24 Rosa M Platt, RN Registered Nurse Family Medicine 03/01/23 Loan Documentation Specialist Relationship Specialty Start Date End Date Rosa M Gonzales MD [address] [place] [address] PCP - General Family Medicine 10/25/22 Rosa M Gonzales MD [address] [place] [address] PCP - ACO Reach 05/31/24 Rosa M Platt, RN Registered Nurse Family Medicine 03/01/23 Loan Documentation Specialist Relationship Specialty Start Date End Date Rosa M Gonzales MD [address] [place] [address] PCP - General Family Medicine 10/25/22 Rosa M Platt, TATO Registered Nurse Family Medicine 03/01/23 Loan Documentation Specialist Relationship Specialty Start Date End Date Rosa M Gonzales MD [address] [place] [address] PCP - General Family Medicine 10/25/22 Rosa M Platt, TATO Registered Nurse Family Medicine 03/01/23 Loan Documentation Specialist Relationship Specialty Start Date End Date Rosa M Gonzales MD [address] [place] [address] PCP - General Family Medicine 10/25/22 Rosa M Platt RN [address] [place] [address] Registered Nurse Family Medicine 03/01/23 Loan Documentation Specialist Relationship Specialty Start Date End Date Rosa M Gonzales MD [address] [place] [address] PCP - General Family Medicine 10/25/22 Rosa M Platt, RN [address] [place] [address] Registered Nurse Family Medicine 03/01/23 Loan Documentation Specialist Relationship Specialty Start Date End Date Rosa M Gonzales MD [address] [place] [address] PCP - General Family Medicine 10/25/22 Rosa M Platt, RN [address] [place] [address] Registered Nurse Family Medicine 03/01/23 Loan Documentation Specialist Relationship Specialty Start Date End Date Rosa M Gonzales MD [address] [place] [address] PCP - General Family Medicine 10/25/22 Rosa M Platt RN [address] [place] [address] Registered Nurse Family Medicine 03/01/23 Loan Documentation Specialist Relationship Specialty Start Date End Date Rosa M Gonzales MD [address] [place] [address] PCP - General Family Medicine 10/25/22 Rosa M Platt RN [address] [place] [address] Registered Nurse Family Medicine 03/01/23 Loan Documentation Specialist Relationship Specialty Start Date End Date Rosa M Gonzales MD [address] [place] [address] PCP - General Family Medicine 10/25/22 Rosa M Platt RN [address] [place] [address] Registered Nurse Family Medicine 03/01/23 Loan Documentation Specialist Relationship Specialty Start Date End Date Rosa M Gonzales MD [address] [place] [address] PCP - General Family Medicine 10/25/22 Rosa M Platt, RN [address] [place] [address] Registered Nurse Family Medicine 03/01/23 Loan Documentation Specialist Relationship Specialty Start Date End Date Rosa M Gonzales MD [address] [place] [address] PCP - General Family Medicine 10/25/22 Rosa M Platt, RN [address] [id number] Registered Nurse Family Medicine 03/01/23 Reason for Visit (unrecogniz ed section and content) Reason Comments Rash Along throat/chest, right side. Started couple of days ago. Reason Comments Rash Reason Comments Med Refill Reason Comments Skin Check Reason Comments Mohs Micrographic Surgery Reason Comments Follow-up Reason Comments Dizziness FOR RECORDS PERTAINING TO PATIENTS WHO ARE [...] BE BASED ON THE PRIMARY CLINICAL RECORDS. [employer] provides no warranty or guarantee of the accuracy or completeness of information in this document.
[2024-12-17 08:59] LABS: Hematocrit 46.4 % (42.0-54.0); Hemoglobin 15.2 g/dL (14.0-18.0); Immature Granulocytes Abs Auto 0.03 10^3/uL (0.00-0.03); Immature Granulocytes Pct Auto 0.5 % (0.0-0.5); Lymphocytes Absolute Auto 1.1 10^3/uL (1.2-3.8); Mean Corpuscular HGB Conc 32.8 g/dL (29.9-35.2); Mean Corpuscular Hemoglobin 29.1 pg (25.9-34.0); Mean Corpuscular Volume 88.7 fL (80.0-94.0); Platelet Count 241 10^3/uL (150-450); Red Blood Count 5.23 10^6/uL (4.70-6.10); White Blood Count 6.3 10^3/uL (4.0-11.0)
[2024-12-17 09:41] LABS: Alanine Aminotransferase 30 U/L (16-63); Albumin Globulin Ratio 1.3; Albumin Level 4.0 g/dL (3.4-5.0); Alkaline Phosphatase 94 U/L (46-116); Anion Gap 13.6; Aspartate Amino Transferase 20 U/L (15-37); Blood Urea Nitrogen 22.0 mg/dL (7.0-18.0); Calcium 9.2 mg/dL (8.5-10.1); Carbon Dioxide 26.9 mmol/L (21.0-32.0); Chloride 105 mmol/L (98-107); Cholesterol 110 mg/dL (<=200); Estimated GFR (African America >60 (>=60 mL/min/1.73m^2); Estimated GFR (Non-African Ame 59 (>=60 mL/min/1.73m^2); Globulin 3.2 g/dL; Glucose 141 mg/dL (74-106); HDL Cholesterol 39 mg/dL (40-60); Magnesium 1.7 mg/dL (1.8-2.4); Potassium 4.5 mmol/L (3.5-5.1); Sodium 141 mmol/L (136-145); Total Protein 7.2 g/dL (6.4-8.2); Triglycerides 162 mg/dL (<=150); Uric Acid 5.7 mg/dL (3.5-7.2); VLDL CHOLESTEROL 32.4 mg/dL
[2024-12-18 04:07] LABS: Sex Horm Binding Glob, Serum 28.2 nmol/L (19.3-76.4)
[2024-12-18 19:08] LABS: BKV DNA, Quant PCR, Plasma Negative (Negative)
[2024-12-20 11:08] LABS: Tacrolimus (FK506), Blood 8.1 ng/mL (5.0-20.0)
== END 2024-12-17 08:34 | disposition home or self-care (01) ==
LOC: LAB 08:34
PROVIDERS: PCP Family Medicine; Visit Provider Nurse Practitioner Family
DX: R73.01 Impaired fasting glucose (principal); Z94.0 Kidney transplant status
CPT/HCPCS: 36415; 80053; 80061; 80197; 82248; 83036; 83735; 84100; 84270; 84402; 84403; 84550; 85025; 87799

== ENCOUNTER 2025-01-20 08:15 | Outpatient (OUT) | payer MEDICARE, SELFPAY ==
--- OUTSIDE RECORDS SUMMARY | 2025-01-20 08:30 | XMS_ITS | CCD ---
Author Organization [facility] Care Team Providers Care [employer] Survey Worker Name Role Phone Rosa M Gonzales Unavailable [phone] Unavailable Unavailable YONAS HERRERA Surgeon Unavailable DC Procedure Practitioner Unavailab YONAS Hsieh Attending Unavailable [...] Primary Care Unavailable YOJANA MCDANIELS Surgeon Unavailable DC Procedure Practitioner Unavailab prabhakar MACDONALD, REFERRED Referring [...] Unavailable JANET, DR DUVAL Primary Care Unavailable [place], DR AIME [employer] Consult[employer] Unavailable [place], DR [...] Care Provider Rosa M Platt RN Unavailable [phone] ROSA M GONZALES Primary Care Physician Rosa M Gonzales MD Unavailable [phone] Reji BROWER Attending Unavailable Sarmini, Schmidt Talal Referring Unavaila ble Sarmini, Schmidt Talal Admitting Unavaila ble Sarmini, Schmidt Talal Attending Unavaila ble Sarmini, Schmidt Talal Attending Unavaila Reji Belle Attending Unavailable Rosa M Gonzales MD Unavailable Rosa M Platt RN Unavailable Rosa M Gonzales MD Unavailable EFREN CENTENO Attending Unavailable ALICIA FISHMAN Attending Unavailable ROSA M GONZALES Attending Unavailable ALICIA FISHMAN Attending Unavailable ROSA M GONZALES Attending Unavailable AVELINA RODRIGES Attending Unavailable NICKI VELEZ Attending Unavailable NICKI VELEZ Attending Unavailable ROSA M GONZALES Attending Unavailable ALICIA FISHMAN Attending Unavailable Rosa M Coyne MD Primary Care Pr ovider Shola ANNETTEPatricia Lashonda Attending Provider MACRINA MOON Attending Unavailable MACRINA MOON Attending Unavailable FEDERICO CHESTER Attending Unavailable TEAGAN VILLANUEVA Referring Unavailable FEDERICO CHSETER Attending Unavailable TEAGAN VILLANUEVA Referring Unavailable FEDERICO CHESTER Attending Unavailable Allergies Allergy Classification Reported Allergen(s) Allergy Type Date of Onset Reaction(s) Facility (1 source) 28878,00; Translations: [29347,00] Propensity to adverse reactions (disorder) 9 [facility] Repository (2 sources) Cephalexin; Translations: [Keflex] Drug Allergy [facility] Repository Medications Current Medications Medication Drug Class(es) Dates Sig (Normalized) Sig (Original) acetaminophen 325 mg / HYDROcodone bitartrate 5 mg oral tablet (1 source) Opioid Agonist Start: 01-30-2024 End: 02-02-2024 take 1 tablet by mouth every six hours for pain HYDROcodone-acetam inophen ([place]) 5-325 MG tablet Indications: Herpes zoster without complication Take 1 tablet by mouth every 6 (six) hours if needed for severe pain for up to 3 days 12 tablet 01/30/2024 02/02/2024 Active [id number] 200 actuat albuterol 0.09 mg/actuat metered dose inhaler (20 sources) beta2-Adrenergic Agonist Start: 01-06-2025 Albuterol Sulfate 90 mcg/actuation HFA aerosol inhaler Active INHALATION January 06, 2025 12:00am Complies with drug therapy Start: 12-03-2024 End: 12-03-2025 take 2 puff(s) [...] 06/27/2023 Active amoxicillin 500 mg oral capsule (19 sources) Penicillin-class Antibacterial Start: 07-16-2024 take 4 capsules by mouth every hour amoxicillin (Amoxil) 500 MG capsule TAKE 4 CAPSULES BY MOUTH ONE HOUR PRIOR TO DENTAL APPOINTMENT. 07/16/2024 Active aspirin 81 mg oral tablet (20 sources) Platelet Aggregation Inhibitor, Nonsteroidal Anti-inflammatory Drug Start: 08-19-2020 take 1 tablet by mouth once daily Aspirin Low Dose 81 MG Oral Tablet Chewable CHEW ONE TABLET BY MOUTH EVERY DAY Quantity: 30 Refills: 0 Ordered: 19-Aug-2020 DO Start : 19-Aug-2020 Active Start: 01-01-2020 take 1 capsule by mo uth once daily Aspirin 81 mg Capsule Active 81 MG PO Daily December 08, 2020 12:00am Complies with drug therapy take 1 tablet by mouth once priscila y aspirin 81 MG EC tablet Take 81 mg by mouth Daily Active atorvastatin 80 mg oral tablet (20 sources) HMG-CoA Reductase Inhibitor Start: 12-12-2020 take 1 tablet by mouth once daily atorvastatin (Lipitor) 80 MG tablet Take 80 mg by mouth Daily 11/21/2022 Active clopidogrel 75 mg oral tablet (20 sources) P2Y12 Platelet Inhibitor Start: 12-12-2020 take 1 tablet by mouth once daily [...] take 1 capsule by mouth once daily Esomeprazole Magnesium 40 mg capsule,delayed release(DR/EC) Active 40 MG PO Daily January 06, 2025 12:00am Complies with drug therapy fluocinonide 0.5 mg/ml topical solution (1 source) Corticosteroid Start: 02-06-2023 fluocinonide (Lidex) 0.05 % external solution Indications: Other seborrheic dermatitis Apply to affected areas on the scalp twice a day for flares, set aside when clear. 30 days 60 mL 11 02/06/2023 Active 24 hr isosorbide mononitrate 60 mg extended release oral tablet (20 sources) Nitrate Vasodilator Start: 01-06-2025 take 1 tablet by mouth every twenty-four hours Isosorbide Mononitrate 60 mg tablet extended release 24 hr Active MG PO January 06, 2025 12:00am Complies with drug therapy Start: 01-11-2024 take 1 tablet by jacob th once daily in the morning isosorbide mononitrate [...] tablet by mouth once daily Lisinopril 5 mg tablet Active 5 MG PO Daily December 08, 2020 12:00am Complies with drug therapy magnesium amino acid chelate (2 sources) Start: [...] BY MOUTH BEFORE bedtime 270 tablet 1 12/04/2024 Active Start: 12-08-2020 End: 12-08-2023 take 1 tablet by mouth [...] : 01-Jul-2020 Active 24 hr metoprolol succinate 100 mg extended release oral tablet (20 sources) beta-Adrenergic Temo Start: 09-10-2024 metopr olol succinate XL (Toprol-XL) 100 MG 24 hr [...] 04-Apr-2021 DO Start : 04-Jan-2021 Active Start: 12-12-2020 take 1 tablet by jacob th once daily Metoprolol Succinate (Toprol Xl) 200 mg tablet extended release 24 hr Active 200 MG PO Daily December 12, 2020 12:00am Complies with drug therapy Start: 12-08-2020 End: 12-12-2020 Metoprolol Tartrate 50 mg ta blet Discontinued 75 MG PO Twice daily December 08, 2020 12:00am December 12, 2020 4:55pm Start: 01-01-2020 take 1 mg by mouth twice daily Metoprolol tartrate 50 mg Tab mg tab(s), Oral, BID, Refills(s) 0, High blood pressure Start Date: 01/01/20 Status: Ordered mupirocin 0.02 mg/mg topical ointment (3 sources) RNA Synthetase Inhibitor Antibacterial Start: 01-03-2025 mupirocin (Bactroban) 2 % ointment Indications: Basal cell carcinoma of skin of scalp and neck Apply to surgical incision on the scalp once daily with wound care x 10 days 22 g 01/03/2025 Active mycophenolic acid 180 mg delayed release oral [...] AT BEDTIME 07/25/2023 03/19/2024 Discontinued (Reorder) Start: 12-08-2020 End: 06-12-2023 take 3 tablets by mouth in the morning mycophenolate (Myfortic) 180 MG EC tablet Indications: History of kidney transplant (CMS/HCC) Take 3 tablets (540 mg) by mouth in the morning and 3 tablets (540 mg) before bedtime. 540 tablet 1 12/14/2022 06/12/2023 Active Start: 01-01-2020 take 1 mg by mouth twice daily mycophenolic acid 180 mg oral enteric coated tablet mg tab(s), Oral, BID, Refills(s) 0 Start Date: 01/01/20 Status: Ordered nitroglycerin 0.4 mg sublingual tablet (20 sources) Nitrate Vasodilator Start: 10-26-2020 End: 11-08-2023 nitroglycerin (Nitrostat) 0.4 MG SL tablet Indications: Coronary artery disease involving [place] coronary artery of [place] heart with unstable angina pectoris (HCC) Place 1 tablet (0.4 mg) under the tongue every 5 (five) minutes if needed for chest pain. 90 tablet 12 11/08/2022 Active prasugrel 10 mg oral tablet (2 sources) P2Y12 Platelet Inhibitor Start: 01-01-2020 take 1 tablet by mouth once daily Effient 10 mg Tab 10 mg = 1 tab(s), Oral, Daily, # 30 tab(s), Refills(s) 0 Start Date: 01/01/20 Status: Ordered predniSONE 5 mg oral tablet (5 sources) Start: 11-06-2020 End: 01-06-2025 take 1 tablet by mouth once daily predniSONE (Deltasone) 5 MG tablet Indications: Kidney transplant status (CMS/HCC) TAKE 1 TABLET BY MOUTH DAILY 90 tablet 0 03/14/2023 Active 12 hr ranolazine 500 mg extended release oral tablet (20 sources) Anti-anginal Start: 01-06-2025 take 1 tablet by mouth twice daily Ranolazine 500 mg tablet extended release 12 hr Active 500 MG PO Twice daily January 06, 2025 12:00am Complies with drug therapy Start: 01-17-2022 take 1 tablet by jacob th twice daily ranolazine 500 mg oral ER [...] bedtime. 180 capsule 05/20/2024 05/20/2025 Active Start: 07-19-2023 take 1 capsule by mo uth once daily tacrolimus (Prograf) 1 MG capsule Take 1 mg by mouth Daily 07/19/2023 Active Start: 11-08-2022 End: 01-15-2024 take 1 capsule by mouth in the morning tacrolimus (Prograf) 0.5 MG capsule Take 0.5 mg by mouth in the morning and 0.5 mg before bedtime. 07/19/2023 Active Start: 12-08-2020 tacrolimus 0.5 mg oral capsule 1 mg = 2 cap(s), Refills(s) 0 Start Date: 03/04/24 Status: Ordered Start: 07-01-2020 Tacrolimus 1 M G Oral [...] Drug Class(es) Dates Sig (Normalized) Sig (Original) clindamycin 300 mg oral capsule (1 source) Lincosamide Antibacterial Start: 12-12-2020 End: 01-06-2025 take 2 capsules by mouth every eight hours Clindamycin Hcl 300 mg Capsule Discontinued 600 MG PO Every 8 hours 18 3 December 12, 2020 12:00am January 06, 2025 12:32pm famotidine 40 mg oral tablet (6 sources) [...] bedtime), # 90 tab(s), Refills(s) 0, Pharmacy: [id number], 177.8, cm, 12/25/23 9:23:00 EDT, Height/Length Dosing, 94.3, kg, 12/25/23 9:23:00 EDT, Weight Dosing Start Date: 12/25/23 Status: Ordered pravastatin sodium 40 mg oral tablet (2 sources) HMG-CoA Reductase Inhibitor Start: 01-03-2020 End: 12-12-2020 take 1 tablet by mouth once daily Pravastatin 40 mg tablet Discontinued 40 MG PO Daily December 08, 2020 12:00am December 12, 2020 4:55pm Problems Active Problems Problem Classification Problem Date Documented Date Episodic/Chronic Acute and unspecified renal failure (20 sources) Renal failure syndrome; Translations: [Unspecified kidney failure] Onset: 12-05-2022 01-01-2020 Chronic Acute myocardial infarction (20 sources) Myocardial infarction; Translations: [Acute non-ST segment elevation myocardial infarction] Onset: 11-08-2022 01-17-2022 Chronic Cardiac arrest and ventricular fibrillation (20 sources) Ventricular fibrillation; Translations: [Cardiac arrest] Onset: 06-05-2023 07-27-2023 Chronic Comment on above: Problem List clean-u p per request of Phys. EHR Cmte Cardiac dysrhythmias (20 sources) Ventricular tachycardia; Translations: [Ventricular tachycardia] Onset: 11-08-2022 11-08-2022 Chronic Cataract (20 sources) Age-related nuclear [...] graft(s) without angina pectoris] Onset: 12-25-2023 Chronic Conduction disorders (5 sources) Automatic implantable cardiac defibrillator in situ; Translations: [Automatic implantable cardiac defibrillator in situ] Onset: 05-14-2024 Chronic Congestive heart failure; nonhypertensive (20 sources) Chronic systolic heart failure; Translations: [Chronic systolic (congestive) heart failure] Onset: 10-24-2022 11-08-2022 Chronic Coronary atherosclerosis and other heart disease (20 sources) Coronary atherosclerosis; Translations: [Coronary atherosclerosis of [place] coronary artery] Onset: 09-28-2021 Chronic Comment on above: Problem List clean-u p per request of Phys. 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, active] Onset: 11-08-2022 Resolved: 07-27-2023 11-08-2022 Chronic Open wounds of extremities (2 sources) Laceration of left index finger; Translations: [Laceration without foreign body of left index finger without damage to nail, initial encounter] 01-06-2025 Episodic Other aftercare (20 sources) Transplant follow-up; Translations: [Encounter for aftercare following other organ transplant] Onset: 05-04-2022 11-08-2022 Chronic Other aftercare (1 source) Removal of sutures done; Translations: [Encounter for removal of sutures] 01-17-2025 Episodic Other and ill-defined heart disease (1 source) Heart disease; Translations: [Heart disease, unspecified] 01-06-2025 Chronic Other and unspecified benign neoplasm (1 source) Polyp of colon; Translations: [Polyp of colon] Onset: 01-11-2024 Episodic Other circulatory disease (2 sources) Orthostatic hypotension; Translations: [Orthostatic hypotension] 12-03-2024 Episodic Other endocrine disorders (20 sources) Male hypogonadism; Translations: [Testicular hypofunction] Onset: 11-08-2022 11-08-2022 Chronic Other nervous system disorders (20 sources) Neuropathy; Translations: [Polyneuropathy, unspecified] Onset: 11-08-2022 3 Chronic Other non-epithelial cancer of skin (10 sources) History of malignant basal cell neoplasm of skin; Translations: [Personal history of other malignant neoplasm of skin] 05-02-2024 Episodic Other nutritional; endocrine; and metabolic disorders (20 sources) Hypervitaminosis A; 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] Onset: 11-08-2022 11-08-2022 Chronic Other skin disorders (6 sources) Actinic keratosis; Translations: [Actinic keratosis] 05-02-2024 Episodic Other skin disorders (4 sources) Lentiginosis; Translations: [Other melanin hyperpigmentation] 05-02-2024 Episodic Other skin disorders (4 sources) Seborrheic keratosis; Translations: [Other seborrheic keratosis] 05-02-2024 Episodic Other skin disorders (3 sources) Inflamed seborrheic keratosis; Translations: [Inflamed seborrheic keratosis] 11-04-2024 Episodic Other skin disorders (1 source) Fistula; Translations: [Other specified disorders of the skin and subcutaneous tissue] 01-06-2025 Episodic Comment on above: left arm [place]-; endo-; and myocarditis; cardiomyopathy (except that [...] [Acute bronchitis, unspecified] Onset: 03-28-2013 02-02-2023 Episodic Cardiac dysrhythmias (2 sources) Palpitations; Translations: [Palpitations] Onset: 10-17-2024 Episodic Conditions associated with dizziness or vertigo (6 sources) Dizziness; Translations: [Dizziness and giddiness] Onset: 09-18-2024 10-03-2024 Episodic Diabetes mellitus without complication (20 sources) [...] [Chest pain, unspecified] Onset: 06-05-2023 07-27-2023 Episodic Comment on above: Problem List clean-u p per request of Phys. EHR Cmte Other and unspecified benign neoplasm (20 sources) [...] Test Name Value Interpretation Reference Range Facility Cryotherapy, skin lesionon 1 0-03-2025 [facility] Healthcare Orders Onlyon 01-08-2025 Orders Only [id number] Waldemar Duke 1960 M Date Provider Department Center 01/08/2025 LASHONDA MCLEOD MICHELLE [facility] Family History Problem Relation Age of Onset Alzheimer's disease Mother Coronary artery disease Father Family Status - Relation Status Age at Mother Father Normal [facility] Cryotherapy, skin lesionon 0 01-03-2025 [facility] Mohs surgeryon 01-03-2025 Consent obtained: esa epps (The rationale for Mohs as well as the risks, benefits, and alternatives. The risks of infection, scarring, bleeding, prolonged wound healing, incomplete removal, allergy to anesthesia or meds, nerve injury, and recurrence were addressed.) [place] Protocol: Procedure explained and questions answered to [...] sodium bicarbonate Procedure Details: Biopsy accession number: [id number] Biopsy lab: [facility] skin pathology Frozen section biopsy performed: Yes Specimen debulked: No Pre-Op diagnosis: basal cell carcinoma BCC subtype: nodular MohsAIQ Surgical site (if tumor spans multiple areas, please select predominant area): scalp Surgery side: right Surgical site (from skin exam): Right Parietal Scalp Pre-operative length (cm): 1.2 Pre-operative width (cm): 1.2 Indications for Mohs surgery: anatomic location where tissue conservation is critical, ill-defined borders and immunocompromised Previously treated? No Mohs Appropriate Use Criteria Score: 9 Details of micrographic surgery: Mohs accession number: [id number] Micrographic Surgery Details: Post-operative length (cm): 1.7 Post-operative width (cm): 1.5 Number of Mohs stages: 2 Post surgery depth of defect: dermis Stage 1 Comments: The area was prepped with Iodine, draped in a sterile fashion, and infiltrated [...] tissue sections, stained, and evaluated by Dr. Rodriges for interpretation of deep and peripheral margins. The Mohs map was marked accordingly. Amount of lidocaine used: 3.0 cc Estimated blood loss: <1.0 cc Defect size: 1.3 x 1.2 cm Number of blocks per stage: 1 Number of positive blocks: 1 Tumor features identified on Mohs section: basal carcinoma Depth of tumor invasion after stage: dermis Stage 2 Comments: The patient returned to the procedure room, the dressing was remove, the tumor area was re-prepped and draped, and anesthesia was assessed and augmented as necessary. A layer of tissue around the positive margin(s) was removed, and the tissue was oriented, mapped, and processed in an identical fashion as for Stage 1. Hemostasis was achieved and dressing placed as in Stage 1. The patient was escorted to the waiting area. As with Stage 1, Mohs sections were prepared with serial tissue sections, stained, and evaluated by Dr. Centeno for interpretation of deep and peripheral margins. The Mohs map was updated. Assistants: Brooklynn Zavala MA Amount of lidocaine used: 3.0 cc Estimated blood loss: 1.0 cc Defect size: 1.7 x 1.5 cm Number of blocks: 1 Number of positive blocks: 0. Tumor free margins were obtained and the Mohs procedure was considered complete. Tumor features identified on Mohs section: no tumor identified Depth of tumor invasion after stage: subcutaneous fat Patient tolerance of procedure: tolerated well, no immediate complications Reconstruction: Was the defect reconstructed? Yes Was reconstruction performed by the same Mohs surgeon? Yes Setting of reconstruction: outpatient office When was reconstruction performed? same day Type of reconstruction: linear Linear reconstruction: intermediate Antibiotics: Were antibiotics given on the day of surgery? Yes When were antibiotics given? post-operative [facility] Skin repairon 01-03-2025 Complexity: Intermed iate Final length (cm): 3.4 Timeout: patient name, date of , surgical site, and procedure verified Procedure prep: Patient was prepped and draped in usual sterile fashion Prep type: Chlorhexidine Anesthesia: the lesion was anesthetized in a standard fashion Local anesthetic: 3.0 cc. Reason for type of repair: reduce tension to allow closure, allow closure of the large defect and preserve normal anatomy Undermining: edges undermined Undermining comment: The surrounding tissue was undermined until the skin edges could be approximated without undue tension. Any tissue redundancies were removed. Subcutaneous layers (deep stitches): Suture size: 3-0 Suture type comment: Biosyn Stitches: Buried horizontal mattress (Closure was performed in a layered fashion with subcutaneous tissue closed first using tension-bearing absorbable sutures to the level of the superficial fascia.) Fine/surface layer approximation (top stitches): Suture size: 4-0 Suture type: Prolene (polypropylene) Stitches: simple running Stitches comment: Epicuticular skin sutures were then placed with minimal tension. Suture removal (days): 14 Hemostasis achieved with: suture and electrodesiccation Outcome: patient tolerated procedure well with no complications Post-procedure details: sterile dressing applied and wound care instructions given Post-procedure details comment: It was emphasized to the patient to contact the office for any signs of infection, uncontrollable bleeding, or complications. Dressing type: bandage and pressure dressing [facility] ALL CBC WITH AUTO DIFFon BASOPHILS ABSOLUTE AUTO 0.1 [facility] Basophils/100 WBC (Bld) 0.8 % 0.2 - 2.0 % [facility] Eosinophils/100 WBC (Bld) 1.3 % 0.9 - 7.0 % [facility] Erythrocyte distribution width (RBC) [Ratio] 14.5 % 11.0 - 15.0 % [facility] Hematocrit (Bld) [Volume fraction] 46.4 % 42.0 - 54.0 % [facility] Hemoglobin (Bld) [Mass/Vol] 15.2 g/dL 14.0 - 18.0 g/dL [facility] IMMATURE GRANULOCYTES ABS AUTO 0.03 [facility] Immature granulocytes/100 WBC (Bld) 0.5 % 0.0 - 0.5 % [facility] Interpretation and review of laboratory results Abnormal [facility] LYMPHOCYTES ABSOLUTE AUTO 1.1 Low [facility] Lymphocytes/100 WBC (Bld) 17.9 % Low 20.5 - 60.0 % [facility] MCH (RBC) [Entitic mass] 29.1 pg 25.9 - 34.0 pg [facility] MCHC (RBC) [Mass/Vol] 32.8 g/dL 29.9 - 35.2 g/dL [facility] MCV (RBC) [Entitic vol] 88.7 fL 80.0 - 94.0 fL [facility] MONOCYTES ABSOLUTE AUTO 0.6 [facility] Monocytes/100 WBC (Bld) 9.3 % 1.7 - 12.0 % [facility] NEUTROPHILS ABSOLUTE AUTO 4.5 [facility] Neutrophils/100 WBC (Bld) 70.2 % 43.0 - 75.0 % [facility] Platelet mean volume (Bld) [Entitic vol] 10.4 fL 9.5 - 13.5 fL [facility] PLT 241 [facility] RBC 5.23 [facility] WBC 6.3 [facility] ALL CBC WITH AUTO DIFFon BASOPHILS ABSOLUTE AUTO 0 [facility] Basophils/100 WBC (Bld) 0.5 % 0.2 - 2.0 % [facility] Eosinophils/100 WBC (Bld) 1.7 % 0.9 - 7.0 % [facility] Erythrocyte distribution width (RBC) [Ratio] 14.6 % 11.0 - 15.0 % [facility] Hematocrit (Bld) [Volume fraction] 47.4 % 42.0 - 54.0 % [facility] Hemoglobin (Bld) [Mass/Vol] 15.4 g/dL 14.0 - 18.0 g/dL [facility] IMMATURE GRANULOCYTES ABS AUTO 0.02 [facility] Immature granulocytes/100 WBC (Bld) 0.3 % 0.0 - 0.5 % [facility] Interpretation and review of laboratory results Abnormal [facility] LYMPHOCYTES ABSOLUTE AUTO 1.1 Low [facility] Lymphocytes/100 WBC (Bld) 16.9 % Low 20.5 - 60.0 % [facility] MCH (RBC) [Entitic mass] 28.7 pg 25.9 - 34.0 pg [facility] MCHC (RBC) [Mass/Vol] 32.5 g/dL 29.9 - 35.2 g/dL [facility] MCV (RBC) [Entitic vol] 88.4 fL 80.0 - 94.0 fL [facility] MONOCYTES ABSOLUTE AUTO 0.6 [facility] Monocytes/100 WBC (Bld) 9.6 % 1.7 - 12.0 % [facility] NEUTROPHILS ABSOLUTE AUTO 4.5 [facility] Neutrophils/100 WBC (Bld) 71 % 43.0 - 75.0 % [facility] Platelet mean volume (Bld) [Entitic vol] 10.3 fL 9.5 - 13.5 fL [facility]H E[facility].1 [facility] RBC 5.36 [facility] WBC 6.4 [facility] No Panel Informationon 11-04 Type of biopsy: [...] taken Amount of lidocaine used: 1.[address] [facility] Type of biopsy: shirley ential Informed [...] taken Amount of lidocaine used: 1.0 cc [facility] Type of biopsy: shirley ential Informed consent: [...] taken Amount of lidocaine used: 1.[address] [facility] Type of biopsy: shirley ential Informed [...] Photo taken Amount of lidocaine used: 1.0 [facility] Follow-Upon 10-17-2024 Follow-Up [id number] Waldemar Duke Waldemar 1960 M Date Provider Department Center 10/17/2024 [id number] MOON None Family History Problem Relation Age of Onset Alzheimer's disease Mother Coronary artery disease Father Family Status - Relation Status Age at Mother Father Level of Service:48576 DC OFFICE/OUTPATIENT ESTABLISHED MOD MDM 30 MIN Reason for Visit and Comments: Kidney Follow-up [[id number]] - Patient has no concerns at this time. Normal [facility] Office Visiton 10-17-2024 Follow-up visit [id number] Waldemar Duke kenmyah Waldemar 1960 M Date Provider Department Center 10/17/2024 [facility]EDERICO CHESTER [facility] Family History Problem Relation Age of Onset Alzheimer's disease Mother Coronary artery disease Father Family Status - Relation Status Age at Mother Father Level of Service:23611 DC OFFICE/OUTPATIENT ESTABLISHED LOW MDM 20 MIN Normal [facility] CA ECHO DOPPLER COMPLETEon 0 10-15-2024 [place] [address] Cardiology Report Signed Patient: VISHAL DUKE MR#: [id number] : 1960 Acct:[id number] Age/Sex: 63 / M ADM Date: 10/15/24 Loc: CARD Attending Dr: Federico Chester M.D. Ordering Physician: Federico Chestre M.D. Date of Service: 10/15/24 Procedure(s): CA echo doppler complete Accession Number(s): [id number] cc: Federico Chester M.D.; ROSA M GONZALES Patient Name: VISHAL DUKE MR#: [id number] : 1960 Exam Date: 10/15/2024 Ordering Doctor: [...] Area (VTI): 3.55 cm2, 3.55 cm2 Deceleration Coleman: 0.90 m/s2 Pressure Half-Time: 1.03 s Peak Velocity(Antegrade Flow): 1.03 m/s Peak Gradient(Antegrade Flow): 4.25 m (more content not included)... [facility] Radiology, Radiologi MD elizabeth - 10/15/2024 [place] [address] Cardiology Report Signed Patient: VISHAL DUKE MR#: [id number] : 1960 Acct:[id number] Age/Sex: 63 / M ADM Date: 10/15/24 Loc: CARD Attending Dr: Federico Chester M.D. Ordering Physician: Federico Chester M.D. Date of Service: 10/15/24 Procedure(s): CA echo doppler complete Accession Number(s): [id number] cc: Federico Chester M.D.; ROSA M GONZALES Patient Name: VISHAL DUKE MR#: [id number] : 1960 Exam Date: 10/15/2024 Ordering Doctor: [...] Area (VTI): 3.55 cm2, 3.55 cm2 Deceleration Coleman: 0.90 m/s2 Pressure Half-Time: 1.03 s Peak [...] Signed By: 10/15/24 1433 DD/ 143 TD/TT: Director Of Sales Marketing: [facility] Radiology Study observation (narrative) [facility] CA ECHO DOPPLER COMPLETEOrde red By: Radiologist Radiology on 10-15-2024 [facility] Work Phone: ALL MAGNESIUMon 10-14-2024 Magnesium [Mass/Vol] 1.7 mg/dL Low 1.8 - 2 .4 mg/dL [facility] ALL PHOSPHOROUSon 10-14-2024 Phosphate [Mass/Vol] 3.4 mg/dL 2.6 - 4 .7 mg/dL [facility] ALL URIC ACIDon 10-14-2024 Urate [Mass/Vol] 6.7 mg/dL 3.5 - 7.2 mg/dL [facility] CMP (CMP) (FOR REMOTE FH C USE)on 10-14-2024 Albumin [Mass/Vol] 3.6 g/dL 3.4 - 5.0 g/dL [facility] ALBUMIN GLOBULIN RATIO 1.2 [facility] ALP [Catalytic activity/Vol] 94 U/L 46 - 116 U/L [facility] ALT [Catalytic activity/Vol] 29 U/L 16 - 63 U/L [facility] Anion gap [Moles/Vol] 16.1 mmol/L [facility] AST [Catalytic activity/Vol] 18 U/L 15 - 37 U/L [facility] Bilirubin [Mass/Vol] 0.6 mg/dL 0.2 - 1 .0 mg/dL [facility] Calcium [Mass/Vol] 9.1 mg/dL 8.5 - 10. 1 mg/dL [facility] Chloride [Moles/Vol] 107 mmol/L 98 - 10 7 mmol/L [facility] CO2 [Moles/Vol] 26.3 mmol/L 21.0 - 32.0 mmol/L [facility] Creatinine [Mass/Vol] 1.29 mg/dL 0.70 - 1.30 mg/dL [facility] GFR/1.73 sq M.predicted CKD-EPI (S/P/Bld) [Vol rate/Area] >60 >=60 mL/min/1.7 3m 2 [facility] Globulin (S) [Mass/Vol] 3.1 g/dL [facility] Glucose [Mass/Vol] 133 mg/dL High 74 - 106 mg/dL [facility] Potassium [Moles/Vol] 4.4 mmol/L 3.5 - 5.1 mmol/L [facility] Protein [Mass/Vol] 6.7 g/dL 6.4 - 8.2 g/dL [facility] Sodium [Moles/Vol] 145 mmol/L 136 - 145 mmol/L [facility] TBH EGFR-NON AF SAO TOMEAN 56 Low >=60 mL/min/1.7 3m 2 [facility] Urea nitrogen [Mass/Vol] 21 mg/dL High 7.0 - 18.0 mg/dL [facility] Urea nitrogen/Creatinine [Mass ratio] 16.3 mg/mg [facility] METRO BILIRUBIN, DIRECTon Bilirubin.indirect [Mass/Vol] 0.1 mg/dL 0.0 - 0.2 mg/dL [facility] No Panel Informationon 10-14 Interpretation and review of laboratory results Abnormal [facility] No Panel Informationon 10-03 Interpretation and review of laboratory results Abnormal [facility] Healthcare Office Visiton 09-18-2024 Follow-up visit [id number] Waldemar Duke 1960 M Date Provider Department Center 09/18/2024 271-FEDERICO CHESTER Family History Problem Relation Age of Onset Alzheimer's disease Mother Coronary artery disease Father Family Status - Relation Status Age at Mother Father Level of Service:71564 DC OFFICE/OUTPATIENT ESTABLISHED MOD MDM 30 MIN Normal [facility] ALL CBC WITH AUTO DIFFon BASOPHILS ABSOLUTE AUTO 0 [facility] Basophils/100 WBC (Bld) 0.6 % 0.2 - 2.0 % [facility] Eosinophils/100 WBC (Bld) 1 % 0.9 - 7.0 % [facility] Erythrocyte distribution width (RBC) [Ratio] 14.2 % 11.0 - 15.0 % [facility] Hematocrit (Bld) [Volume fraction] 48 % 42.0 - 54.0 % [facility] Hemoglobin (Bld) [Mass/Vol] 15.4 g/dL 14.0 - 18.0 g/dL [facility] IMMATURE GRANULOCYTES ABS AUTO 0.01 [facility] Immature granulocytes/100 WBC (Bld) 0.1 % 0.0 - 0.5 % [facility] Interpretation and review of laboratory results Abnormal [facility] LYMPHOCYTES ABSOLUTE AUTO 1 Low [facility] Lymphocytes/100 WBC (Bld) 15.2 % Low 20.5 - 60.0 % [facility] MCH (RBC) [Entitic mass] 28.7 pg 25.9 - 34.0 pg [facility] MCHC (RBC) [Mass/Vol] 32.1 g/dL 29.9 - 35.2 g/dL [facility] MCV (RBC) [Entitic vol] 89.4 fL 80.0 - 94.0 fL [facility] MONOCYTES ABSOLUTE AUTO 0.7 [facility] Monocytes/100 WBC (Bld) 10.6 % 1.7 - 12.0 % [facility] NEUTROPHILS ABSOLUTE AUTO 4.9 [facility] Neutrophils/100 WBC (Bld) 72.5 % 43.0 - 75.0 % [facility] Platelet mean volume (Bld) [Entitic vol] 10.3 fL 9.5 - 13.5 fL [facility] PLT 234 [facility] RBC 5.37 [facility] WBC 6.7 [facility] ALL CBC WITH AUTO DIFFon BASOPHILS ABSOLUTE AUTO 0 [facility] Basophils/100 WBC (Bld) 0.6 % 0.2 - 2.0 % [facility] Eosinophils/100 WBC (Bld) 1.4 % 0.9 - 7.0 % [facility] Erythrocyte distribution width (RBC) [Ratio] 13.4 % 11.0 - 15.0 % [facility] Hematocrit (Bld) [Volume fraction] 47 % 42.0 - 54.0 % [facility] Hemoglobin (Bld) [Mass/Vol] 15.2 g/dL 14.0 - 18.0 g/dL [facility] IMMATURE GRANULOCYTES ABS AUTO 0.02 [facility] Immature granulocytes/100 WBC (Bld) 0.3 % 0.0 - 0.5 % [facility] Interpretation and review of laboratory results Abnormal [facility] LYMPHOCYTES ABSOLUTE AUTO 1.1 Low [facility] Lymphocytes/100 WBC (Bld) 16.3 % Low 20.5 - 60.0 % [facility] MCH (RBC) [Entitic mass] 29.2 pg 25.9 - 34.0 pg [facility] MCHC (RBC) [Mass/Vol] 32.3 g/dL 29.9 - 35.2 g/dL [facility] MCV (RBC) [Entitic vol] 90.2 fL 80.0 - 94.0 fL [facility] MONOCYTES ABSOLUTE AUTO 0.7 [facility] Monocytes/100 WBC (Bld) 10.4 % 1.7 - 12.0 % [facility] NEUTROPHILS ABSOLUTE AUTO 4.6 [facility] Neutrophils/100 WBC (Bld) 71 % 43.0 - 75.0 % [facility] Platelet mean volume (Bld) [Entitic vol] 10.4 fL 9.5 - 13.5 fL [facility] EO # 0.1 [facility] PLT 258 [facility] RBC 5.21 [facility] WBC 6.4 [facility] Destr of lesionon 06-19-2024 Complexity: simple Destruction method: electrodesiccation and curettage Informed consent: discussed and consent obtained Informed consent comment: The risks of the procedure were discussed, including, but not limited to risks of scarring, darker or seeing eye dog trainer pigmentary changes, recurrence, infection, and incomplete removal [...] lidocaine used: 2.0 cc Previous accession number: [id number] [facility] Destr of lesionOrdered By: Andrew Salvador on 06-19-2024 [facility] No Panel Informationon 06-13 Consent obtained: esa epps (The rationale for Mohs as well as the risks, benefits, and alternatives. The risks of infection, scarring, bleeding, prolonged wound healing, incomplete removal, allergy to anesthesia or meds, nerve injury, and recurrence were addressed.) [place] Protocol: Procedure explained and questions answered to [...] sodium bicarbonate Procedure Details: Biopsy accession number: [id number] Biopsy lab: [facility] Date of biopsy: 05/02/2024 Frozen section biopsy performed: Yes Specimen debulked: No Pre-Op diagnosis: squamous cell carcinoma MohsAIQ Surgical site (if tumor spans multiple areas, please select predominant area): nondenominational Surgery side: left Surgical site (from skin exam): Left [employer] Pre-operative length (cm): 0.8 Pre-operative width (cm): [...] given on the day of surgery?: No [facility] No Panel InformationOrdered By: Avelina Pena on 06-13-2024 [facility] Healthcare Orders Onlyon 06-12-2024 Orders Only [id number] Waldemar Duke D 1960 M Date Provider Department Center 06/12/2024 1759-ZACHARY CARTER [facility] 2A [place] Fl Family History Problem Relation Age of Onset Alzheimer's disease Mother Coronary artery disease Father Family Status - Relation Status Age at Mother Father Normal [facility] Documentationon 06-11-2024 Documentation [id number] Waldemar Duke D 1960 M Date Provider Department Center 06/11/202411858-RKTY-SQLIHOLLI BLAS TXP None Family History Problem Relation Age of Onset Alzheimer's disease Mother Coronary artery disease Father Family Status - Relation Status Age at Mother Father Normal [facility] MLR HEMOGLOBIN A1Con 025 Glucose [Mass/Vol] 131 mg/dL [facility] HbA1c (Bld) [Mass fraction] 6.2 % 4.5 - 6.2 % [facility] Comment on above: ADA RECOMMENDED LIMI T 4.0 - 6.0 ADA THERAPEUTIC TARGET < 7.0 ACTION SUGGESTED > 7.0 [facility] ALL CBC WITH AUTO DIFFon BASOPHILS ABSOLUTE AUTO 0 [facility] Basophils/100 WBC (Bld) 0.6 % 0.2 - 2.0 % [facility] Eosinophils/100 WBC (Bld) 1.6 % 0.9 - 7.0 % [facility] Erythrocyte distribution width (RBC) [Ratio] 13.2 % 11.0 - 15.0 % [facility] Hematocrit (Bld) [Volume fraction] 46.2 % 42.0 - 54.0 % [facility] Hemoglobin (Bld) [Mass/Vol] 15.1 g/dL 14.0 - 18.0 g/dL [facility] IMMATURE GRANULOCYTES ABS AUTO 0.02 [facility] Immature granulocytes/100 WBC (Bld) 0.3 % 0.0 - 0.5 % [facility] Interpretation and review of laboratory results Abnormal [facility] LYMPHOCYTES ABSOLUTE AUTO 1 Low [facility] Lymphocytes/100 WBC (Bld) 16 % Low 20.5 - 60.0 % [facility] MCH (RBC) [Entitic mass] 30.6 pg 25.9 - 34.0 pg [facility] MCHC (RBC) [Mass/Vol] 32.7 g/dL 29.9 - 35.2 g/dL [facility] MCV (RBC) [Entitic vol] 93.5 fL 80.0 - 94.0 fL [facility] MONOCYTES ABSOLUTE AUTO 0.6 [facility] Monocytes/100 WBC (Bld) 9.3 % 1.7 - 12.0 % [facility] NEUTROPHILS ABSOLUTE AUTO 4.5 [facility] Neutrophils/100 WBC (Bld) 72.2 % 43.0 - 75.0 % [facility] Platelet mean volume (Bld) [Entitic vol] 10.2 fL 9.5 - 13.5 fL [facility] EO # 0.1 [facility] PLT 208 [facility] RBC 4.94 [facility] WBC 6.3 [facility] No Panel Informationon 05-02 Type of biopsy: [...] taken Amount of lidocaine used: 1.0 cc [facility] Desall [facility] Desall Type of biopsy: shirley ential Informed consent: [...] taken Amount of lidocaine used: 1.0 cc [facility] Desall Type of biopsy: shirley ential Informed consent: [...] taken Amount of lidocaine used: 0.5 cc [facility] Follow-Upon 04-11-2024 Follow-Up [id number] Waldemar Duke 1960 M Date Provider Department Center 04/11/2024 06004-DTTBRMT, MACRINA TXP None Family History Problem Relation Age of Onset Alzheimer's disease Mother Coronary artery disease Father Family Status - Relation Status Age at Mother Father Level of Service:73498 DC OFFICE/OUTPATIENT ESTABLISHED MOD MDM 30 MIN Reason for Visit and Comments: Kidney Follow-up [] - Pt has no concerns at this time. Normal [facility] ALL CBC WITH AUTO DIFFon BASOPHILS ABSOLUTE AUTO 0 [facility] Basophils/100 WBC (Bld) 0.6 % 0.2 - 2.0 % [facility] Eosinophils/100 WBC (Bld) 1.4 % 0.9 - 7.0 % [facility] Erythrocyte distribution width (RBC) [Ratio] 13.9 % 11.0 - 15.0 % [facility] Hematocrit (Bld) [Volume fraction] 47.3 % 42.0 - 54.0 % [facility] Hemoglobin (Bld) [Mass/Vol] 15.7 g/dL 14.0 - 18.0 g/dL [facility] IMMATURE GRANULOCYTES ABS AUTO 0.02 [facility] Immature granulocytes/100 WBC (Bld) 0.3 % 0.0 - 0.5 % [facility] Interpretation and review of laboratory results Abnormal [facility] LYMPHOCYTES ABSOLUTE AUTO 1.2 [facility] Lymphocytes/100 WBC (Bld) 18.6 % Low 20.5 - 60.0 % [facility] MCH (RBC) [Entitic mass] 31.1 pg 25.9 - 34.0 pg [facility] MCHC (RBC) [Mass/Vol] 33.2 g/dL 29.9 - 35.2 g/dL [facility] MCV (RBC) [Entitic vol] 93.7 fL 80.0 - 94.0 fL [facility] MONOCYTES ABSOLUTE AUTO 0.6 [facility] Monocytes/100 WBC (Bld) 10.1 % 1.7 - 12.0 % [facility] NEUTROPHILS ABSOLUTE AUTO 4.3 [facility] Neutrophils/100 WBC (Bld) 69 % 43.0 - 75.0 % [facility] Platelet mean volume (Bld) [Entitic vol] 10.2 fL 9.5 - 13.5 fL [facility] EO # 0.1 [facility] PLT 230 [facility] TB RBC 5.05 [facility] TB WBC 6.2 [facility] HbA1c (Bld) [Mass fraction]o n 03-21-2024 Interpretation and review of laboratory results Normal [facility] Laboratory - Hematology and Cell countson 03-21-2024 HbA1c (Bld) [Mass fraction] 6.4 % [facility] Office Visiton 03-18-2024 Follow-up visit [id number] Waldemar Duke 1960 M Date Provider Department Center 03/18/2024 271-FEDERICO CHESTER CARD [facility] Family History Problem Relation Age of Onset Alzheimer's disease Mother Coronary artery disease Father Family Status - Relation Status Age at Mother Father Level of Service:91364 DC OFFICE/OUTPATIENT ESTABLISHED LOW MDM 20 MIN Normal [facility] ALL CBC WITH AUTO DIFFon BASOPHILS ABSOLUTE AUTO 0 [facility] Basophils/100 WBC (Bld) 0.6 % 0.2 - 2.0 % [facility] Eosinophils/100 WBC (Bld) 1.5 % 0.9 - 7.0 % [facility] Erythrocyte distribution width (RBC) [Ratio] 14.5 % 11.0 - 15.0 % [facility] Hematocrit (Bld) [Volume fraction] 49.5 % 42.0 - 54.0 % [facility] Hemoglobin (Bld) [Mass/Vol] 16.3 g/dL 14.0 - 18.0 g/dL [facility] IMMATURE GRANULOCYTES ABS AUTO 0.02 [facility] Immature granulocytes/100 WBC (Bld) 0.3 % 0.0 - 0.5 % [facility] Interpretation and review of laboratory results Abnormal [facility] LYMPHOCYTES ABSOLUTE AUTO 0.9 Low [facility] Lymphocytes/100 WBC (Bld) 14.3 % Low 20.5 - 60.0 % [facility] MCH (RBC) [Entitic mass] 30.5 pg 25.9 - 34.0 pg [facility] MCHC (RBC) [Mass/Vol] 32.9 g/dL 29.9 - 35.2 g/dL [facility] MCV (RBC) [Entitic vol] 92.7 fL 80.0 - 94.0 fL [facility] MONOCYTES ABSOLUTE AUTO 0.6 [facility] Monocytes/100 WBC (Bld) 8.5 % 1.7 - 12.0 % [facility] NEUTROPHILS ABSOLUTE AUTO 4.9 [facility] Neutrophils/100 WBC (Bld) 74.8 % 43.0 - 75.0 % [facility] Platelet mean volume (Bld) [Entitic vol] 10.3 fL 9.5 - 13.5 fL [facility] TB EO # 0.1 [facility] PLT 213 [facility] RBC 5.34 [facility] WBC 6.6 [facility] Ambulatory Visit Summaryon 05-04-2023 Ambulatory Visit Summary Ambulatory Visit Summary [...] you for choosing us for your care. [facility] Reminderson 03-04-2024 Reminders Reminders From: Marie Lobato To: EU - Administrative; Sent: 03/04/2024 15:07:27 EST Show up: 05/18/2025 15:07:00 EST Subject: Ambulatory Reminder Due Date/Time: 03/01/2026 15:07:00 EST Reminder/Recall Patient needs scheduled with PRW for a 2 yr f/u with PSA, due back in February of 2026 [facility] Urology Office/Clinic Noteon 03-04-2024 Urology Office/Clinic Note [...] 01/01/18. 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 Bobby Maldonado. Per pt, [...] Reji Farrell, URL [facility] [address] [place] [address]- [phone] Additional Instructions: 2 yrs w/ PSA Patient [...] virus vaccine, (more content not included)... Normal [facility] Comment on above: Result Comment: Elec tronically Signed By: Reji BROWER MD\.br\Date and Time Signed: 03/04/24 15:03 EST\.br\Electronically Co-Signed By: Esther Pan\.br\Date and Time Co-Signed: 03/04/24 15:02 EST Documentationon 02-02-2024 Documentation [id number] Waldemar Duke 1960 M Date Provider Department Center 02/02/2024 3373-PB ROMO None Family History Problem Relation Age of Onset Alzheimer's disease Mother Coronary artery disease Father Family Status - Relation Status Age at Mother Father Normal [facility] ALL CBC WITH AUTO DIFFon BASOPHILS ABSOLUTE AUTO 0 [facility] Healthcare Basophils/100 WBC (Bld) 0.5 % 0.2 - 2.0 % [facility] Eosinophils/100 WBC (Bld) 1 % 0.9 - 7.0 % [facility] Erythrocyte distribution width (RBC) [Ratio] 13.6 % 11.0 - 15.0 % [facility] Hematocrit (Bld) [Volume fraction] 50.4 % 42.0 - 54.0 % [facility] Hemoglobin (Bld) [Mass/Vol] 17 g/dL 14.0 - 18.0 g/dL [facility] IMMATURE GRANULOCYTES ABS AUTO 0.03 [facility] Immature granulocytes/100 WBC (Bld) 0.4 % 0.0 - 0.5 % [facility] Interpretation and review of laboratory results Abnormal [facility] LYMPHOCYTES ABSOLUTE AUTO 0.9 Low [facility] Lymphocytes/100 WBC (Bld) 11.7 % Low 20.5 - 60.0 % [facility] Healthcare MCH (RBC) [Entitic mass] 30.5 pg 25.9 - 34.0 pg [facility] MCHC (RBC) [Mass/Vol] 33.7 g/dL 29.9 - 35.2 g/dL [facility] MCV (RBC) [Entitic vol] 90.3 fL 80.0 - 94.0 fL [facility] MONOCYTES ABSOLUTE AUTO 0.8 [facility] Monocytes/100 WBC (Bld) 10.6 % 1.7 - 12.0 % [facility] NEUTROPHILS ABSOLUTE AUTO 5.6 [facility] Neutrophils/100 WBC (Bld) 75.8 % High 43.0 - 75.0 % [facility] Platelet mean volume (Bld) [Entitic vol] 10.3 fL 9.5 - 13.5 fL [facility] EO # 0.1 [facility] PLT 189 [facility] RBC 5.58 [facility] WBC 7.4 [facility] 36on 01-29-2024 36 Transplant Pharmacis t - [...] BCPS Solid Organ Transplant Clinical Pharmacist Normal [facility] Telephoneon 01-29-2024 Telephone [id number] Waldemar Duke 1960 [facility] Provider Department [place] 01/29/2024 3915-GUERO LEE TXP None Family History Problem Relation Age of Onset Alzheimer's disease Mother Coronary artery disease Father Family Status - Relation Status Age at Mother Father Reason for Visit and Comments: Transplant Pharmacist - Drug Information [[id number]] Normal [facility] MHPT PSA, DIAGNOSTICon 01-24 PROSTATE SPECIFIC ANTIGEN DX 0.91 ng/mL NINF - 4.00 ng/mL [facility] Result Letter Officeon 01-22 Result Letter Office Result Letter Offic e January 23, 2024 VISHAL Robertson [facility] [place] [address] : 1960 Below is a summary of [...] letter prior to your next due date. [facility] [phone] Normal [facility] Surgical Pathology Reporton 01-17-2024 Surgical Pathology Report [facility] [address] [place] [address]- Surgical Pathology Report Collected Date/Time: 01/11/2024 09:34 [...] is entirely submitted in one cassette. (DC) DC:[facility] Microscopic Description Microscopic examination performed unless gross only specified. The use of one or more reagents in the above tests is regulated as an analyte specific reagent (ASR). The test or tests are ordered following initial H&E microscopic examination. The performance characteristics were determined by the Laboratory of [facility]. They have not been cleared or approved by the US Food and Drug Administration. The FDA has determined that such clearance or approval is not necessary. These tests are used for clinical purposes. They should not be regarded as investigational or for research. Appropriate positive and negative controls are performed and are acceptable. Normal [facility] Comment on above: Performed By: #### [id number] #### [facility] [address] [place] [address] Main OR Intraoperative Recor don 01-12-2024 Main OR Intraoperative Record Main OR Intraoperative Record IntraOp Document Type FT Summary Primary Physician: Gladys FRANK, Xochilt Butler Finalized Date/Time: 01/12/24 11:15:33 Pt. Name: VISHAL DUKE /Sex: 1960 Male Med Rec #: [id number] Physician: Xochilt Graham MD Financial #: [id number] Pt. Type: O Room/Bed: / Admit/Disch: 01/11/24 [...] 2 Entry 3 Case Attendee Nick MONTEMAYOR, LOCK MASTER, Queen Nicky GODWIN, Monie Guzman Role Performed LOCK MASTER Validation Architect - Primary Scrub - Primary Time In 01/11/24 09:37:00 01/11/24 09:24:00 01/11/24 09:24:00 Time Out 01/11/24 10:08:00 01/11/24 10:08:00 01/11/24 10:08:00 Procedure EGD AND COLONOSCOPY(.) EGD AND COLONOSCOPY(.) EGD AND COLONOSCOPY(.) Comments Dr. Orozco supervising Last Modified By: Nicky GODWIN, Karlene Saunders RN, Karlene Saunders RN, Karlene 01/11/24 10:09:04 01/11/24 10:09:04 01/11/24 10:09:04 Entry 4 Entry 5 Entry 6 Case Attendee Nikunj HENRY, Hanh Graham MD, Xochilt Infante CRNA, Belinda Butler Role Performed Staff - Other Surgeon - Primary LOCK MASTER Time In 01/11/24 09:34:00 01/11/24 09:24:00 01/11/24 [...] (If Applicable) PreOp Antibiotic No Time Out Kalrene Saunders RN, Given Participants Monie Mehta, Gladys [...] to site. Primary Procedure Yes Primary Surgeon Xochilt Graham MD Start 01/11/24 09:30:00 Stop 01/11/24 10:04:00 Anesthesia [...] of physic (more content not included)... Normal [facility] Discharge Instructionson Discharge Instructions Discharge [...] FRANK, Reji Farrell Where: [facility] of [address] [address]- New Follow Up Appointments after Discharge Follow Up with Gladys FRANK, JIN Saze, [facility] When: Comments: Call for any problems. [...] the a (more content not included)... Normal [facility] Comment on above: Result Comment: Elec tronically Signed By: Maria Victoria Zaman I\.adam\Date and Time Signed: 01/11/24 10:21 EDT Inpatient Patient Summaryon 01-11-2024 Inpatient Patient Summary Inpatient Patient Summary [place] [id number] [facility] Clinical Discharge Instructions PERSON INFORMATION Name: VISHAL DUKE [facility]#:[id number] PHYSICIANS Admitting Physician: Gladys FRANK, Xochilt Butler Attending Physician: Xochilt Graham MD PCP: JANET FRANK, ROSA M [place] Discharge Diagnosis: Chronic GERD; Colon polyps Comment: PATIENT EDUCATION INFORMATION Instructions: Medication Leaflets: Follow up: Type Location [facility] [place] [facility] Office Visit [facility] Doran 01/29/2024 10:30 AM 01/29/2024 10:45 [...] times a day. tacrolimus 1 Milligram. Comment: Normal [facility] Main OR PACU II Recordon Main OR PACU II Record Main OR PACU II Record PACU Phase II Document Type FT Summary Primary Physician: Xochilt Graham MD Finalized Date/Time: 01/11/24 10:56:37 Pt. Name: VISHAL DUKE/Sex: 1960 Male Med Rec #: [id number] Physician: Xochilt Graham MD Financial #: [id number] Pt. Type: O Room/Bed: / Admit/Disch: 01/11/24 [...] Maria Victoria Zaman I 01/11/24 10:56 Normal [facility] Main OR Preoperative Recordo n 01-11-2024 Main OR Preoperative Record Main OR Preoperative Record Holding Area Document Type FT Summary Primary Physician: Xochilt Graham MD Finalized Date/Time: 01/11/24 09:12:50 Pt. Name: VISHAL DUKE /Sex: 1960 Male Med Rec #: [id number] Physician: Xochilt Graham MD Financial #: [id number] Pt. Type: O Room/Bed: / Admit/Disch: 01/11/24 [...] By: Stacey Hamilton RN 01/11/24 09:12 Normal [facility] Outpatient Surgery Discharge Instructionon 01-11-2024 Outpatient Surgery Discharge Instruction Outpatient Surgery Discharge Instruction [place] [id number] Patient Discharge Instructions PERSON INFORMATION Name: VISHAL [...] Date Follow up: Type Location Start Finish [facility] URO Office Visit [facility] EU Andreea 01/29/2024 10:30 AM 01/29/2024 10:45 AM Confirmed Pharmacy Information: You may receive a survey from [employer] asking you to rate your care experience. Your feedback is important and will help us understand what we do well and how we can improve the quality of care we provide to you, your loved ones and our community. It?s an honor to serve you. Thank you for choosing [facility] HERE ARE THE MEDICATION CHANGES THAT [...] PATIENT EDUCATION INFORMATION Instructions: Medication Leaflets: Normal [facility] ALL CBC WITH AUTO DIFFon BASOPHILS ABSOLUTE AUTO 0.0 [facility] Basophils/100 WBC (Bld) 0.6 % 0.2 - 2.0 % [facility] Eosinophils/100 WBC (Bld) 1.6 % 0.9 - 7.0 % [facility] Erythrocyte distribution width (RBC) [Ratio] 13.3 % 11.0 - 15.0 % [facility] Hematocrit (Bld) [Volume fraction] 48.4 % 42.0 - 54.0 % [facility] Hemoglobin (Bld) [Mass/Vol] 15.7 g/dL 14.0 - 18.0 g/dL [facility] IMMATURE GRANULOCYTES ABS AUTO 0.03 [facility] Immature granulocytes/100 WBC (Bld) 0.5 % 0.0 - 0.5 % [facility] Interpretation and review of laboratory results Abnormal [facility] LYMPHOCYTES ABSOLUTE AUTO 1.0 Low [facility] Lymphocytes/100 WBC (Bld) 15.2 % Low 20.5 - 60.0 % [facility] MCH (RBC) [Entitic mass] 30.3 pg 25.9 - 34.0 pg [facility] MCHC (RBC) [Mass/Vol] 32.4 g/dL 29.9 - 35.2 g/dL [facility] MCV (RBC) [Entitic vol] 93.4 fL 80.0 - 94.0 fL [facility] MONOCYTES ABSOLUTE AUTO 0.6 [facility] Monocytes/100 WBC (Bld) 9.7 % 1.7 - 12.0 % [facility] NEUTROPHILS ABSOLUTE AUTO 4.5 [facility] Neutrophils/100 WBC (Bld) 72.4 % 43.0 - 75.0 % [facility] Platelet mean volume (Bld) [Entitic vol] 10.8 fL 9.5 - 13.5 fL [facility] TBH EO # 0.1 [facility]H PLT 217 [facility] TB RBC 5.18 [facility] TBH WBC 6.3 [facility] Ambulatory Visit Summaryon 0 12-25-2023 Ambulatory Visit Summary Ambulatory Visit Summary VISHAL DUKE :1960 Visit Date:02/02/2023 Ambulatory Visit Instructions Your Care Team Attending Physician - Xochilt Graham MD Primary Care Physician - ROSA M GONZALES [...] Appointments 2023 10:00 AM EDT With: Where: [facility] Monday 10:30 AM EDT With: LEONARDA FRANK, Reji Farrell Where: [facility] [address] [id number]- Medications What How Much When Why Instructions [...] choosing us for your care. Normal [facility] Gastroenterology Office/Clin ic Noteon 12-25-2023 Gastroenterology Office/Clinic Note Gastroenterology Office/Clinic Note Chief Complaint Colonoscopy HPI Staff Patient is a(n) year old male who presents today for a 10 year colonoscopy recall. Denies Fhx colon cancer. Denies previous EGD. Hx hyperplastic polyps. Denies n/v/c/d, abd pain, bloody or mucus stools. Blood thinners? Plavix Dr Chester [facility] prescribes Plavix GLP-1 agonists? no Colonoscopy 02/04/2013 w/Dr. Cerrato: DIAGNOSIS: Two sigmoid polyps as described above, status post snare polypectomy. 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 History of colon polyps (Z86.010: Personal history of colonic polyps) Ordered: famotidine, 40 mg = 1 tab(s), Oral, Once a day (at bedtime), # 90 tab(s), Refills(s) 0, Pharmacy: [facility], 177.8, cm, 12/25/23 9:23:00 EDT, Height/Length [...] bedtime), # 90 tab(s), Refills(s) 0, Pharmacy: [facility], 177.8, cm, 12/25/23 9:23:00 EDT, Height/Length [...] bedtime), # 90 tab(s), Refills(s) 0, Pharmacy: [facility], 177.8, cm, 12/25/23 9:23:00 EDT, Height/Length [...] bedtime), # 90 tab(s), Refills(s) 0, Pharmacy: [facility], 177.8, cm, 12/25/23 9:23:00 EDT, Height/Length [...] Mother. Immunizati (more content not included)... Normal [facility] Comment on above: Result Comment: Elec tronically Signed By: Gladys FRANK, Xochilt Butler\.adam\Date and Time Signed: 12/25/23 09:51 EDT TACROLIMUS (FK506), BLOODon 05-31-2023 TACROLIMUS (FK506), BLOOD 5.5 ng/mL 2.0 - 20.0 ng/mL [facility] Comment on above: This test was develo ped and its performance characteristics determined by [employer]. It has not been cleared or approved by the Food and Drug Administration. Trough (immediately following transplant) 15.0 Trough (steady state, 2 weeks or more after transplant): 3.0 - 8.0 Performed by LC-MS/MS technology. Performed at: [address] [id number] [employer] Specialist: Evan Orozco MD, Phone: [phone] [facility] ([facility]IMUS) WHOLE BLO ODon 08-21-2022 Tacrolimus (FK506), Blood 6.0 ng/mL Normal 2.0-20.0 [facility] Comment on above: Result Comment: Trou gh (immediately following transplant) 15.0 . Trough (steady state, 2 weeks or more after transplant): 3.0 - 8.0 . Performed by LC-MS/MS technology. Performed By: #### P HOS, URIC, MG, CMP, DBIL, LIPID #### [facility] [address] [place] [address] Dr. Karla Lagos BK VIRUS PCR QUANTon 023 BKV DNA QUANT PCR PLASMA Negative Normal Negative [facility] Comment on above: Result Comment: No B K DNA detected. . The linear range of the assay is 22 - 100,000,000 IU/mL. Performed By: #### P HOS, URIC, MG, CMP, DBIL, LIPID #### [facility] [address] [place] [address] Dr. Karla Lagos Log10 BKV DNA Plasma Normal [facility] Comment on above: Performed By: #### P HOS, URIC, MG, CMP, DBIL, LIPID #### [facility] [address] [place] [address] Dr. Karla Lagos BILIRUBIN CONJUGATED (DIRECT )on 08-18-2022 BILI, CONJUGATED 0.2 mg/dL Normal 0.0-0.[address] [facility] Comment on above: Performed By: #### P HOS, URIC, MG, CMP, DBIL, LIPID #### [facility] [address] [place] [address] Dr. Karla Lagos CBC AUTO DIFFon 08-18-2022 BASO # 0.1 103/ul Normal 0.0-0.1 [facility] Comment on above: Performed By: #### P HOS, URIC, MG, CMP, DBIL, LIPID #### [facility] [address] [place] [address] Dr. Karla Lagos Basophils/100 WBC (Bld) 1.0 % Normal 0.2-2.[address] [facility] Comment on above: Performed By: #### P HOS, URIC, MG, CMP, DBIL, LIPID #### [facility] [address] [place] [address] Dr. Karla Lagos EO # 0.1 103/ul Normal 0.0-0.7 [facility] Comment on above: Performed By: #### P HOS, URIC, MG, CMP, DBIL, LIPID #### [facility] [address] [place] [address] Dr. Karla Lagos Eosinophils/100 WBC (Bld) 1.3 % Normal 0.9-7.[address] [facility] Comment on above: Performed By: #### P HOS, URIC, MG, CMP, DBIL, LIPID #### [facility] [address] [place] [address] Dr. Karla Lagos Erythrocyte distribution width (RBC) [Ratio] 14.0 % Normal 11.0-15.[address] [facility] Comment on above: Performed By: #### P HOS, URIC, MG, CMP, DBIL, LIPID #### [facility] [address] [place] [address] Dr. Karla Lagos Hematocrit (Bld) [Volume fraction] 52.7 % Normal 42.0-54.[address] [facility] Comment on above: Performed By: #### P HOS, URIC, MG, CMP, DBIL, LIPID #### [facility] [address] [place] [address] Dr. Karla Lagos Hemoglobin (Bld) [Mass/Vol] 17.0 g/dL Normal 14.0-18.[address] [facility] Comment on above: Performed By: #### P HOS, URIC, MG, CMP, DBIL, LIPID #### [facility] [address] [place] [address] Dr. Karla Lagos IG # 0.03 10e3/ul Normal 0.00-0.[address] [facility] Comment on above: Performed By: #### P HOS, URIC, MG, CMP, DBIL, LIPID #### [facility] [address] [place] [address] Dr. Karla Lagos IG % 0.4 % Normal 0.0-0.[address] [facility] Comment on above: Performed By: #### P HOS, URIC, MG, CMP, DBIL, LIPID #### [facility] [address] [place] [address] Dr. Karla Lagos LYMPH # 1.1 103/ul Critically low 1.2-3.[address] [facility] Comment on above: Performed By: #### P HOS, URIC, MG, CMP, DBIL, LIPID #### [facility] [address] [place] [address] Dr. Karla Lagos Lymphocytes/100 WBC (Bld) 16.0 % Critically low 20.5-60.[address] [facility] Comment on above: Performed By: #### P HOS, URIC, MG, CMP, DBIL, LIPID #### [facility] [address] [place] [address] Dr. Karla Lagos MANUAL DIFF REQ NO Normal [facility] Comment on above: Performed By: #### P HOS, URIC, MG, CMP, DBIL, LIPID #### [facility] [address] [place] [address] Dr. Karla Lagos MCH (RBC) [Entitic mass] 29.9 pg Normal 25.9-34.0 [facility] Comment on above: Performed By: #### P HOS, URIC, MG, CMP, DBIL, LIPID #### [facility] [address] [place] [address] Dr. Karla Lagos MCHC (RBC) [Mass/Vol] 32.3 g/dL Normal 29.9-35.2 [facility] Comment on above: Performed By: #### P HOS, URIC, MG, CMP, DBIL, LIPID #### [facility] [address] [place] [address] Dr. Karla Lagos MCV (RBC) [Entitic vol] 92.6 fL Normal 80.0-94.0 [facility] Comment on above: Performed By: #### P HOS, URIC, MG, CMP, DBIL, LIPID #### [facility] [address] [place] [address] Dr. Karla Lagos MONO # 0.7 103/ul Normal 0.3-0.8 [facility] Comment on above: Performed By: #### P HOS, URIC, MG, CMP, DBIL, LIPID #### [facility] [address] [place] [address] Dr. Karla Lagos Monocytes/100 WBC (Bld) 10.6 % Normal 1.7-12.0 [facility] Comment on above: Performed By: #### P HOS, URIC, MG, CMP, DBIL, LIPID #### [facility] [address] [place] [address] Dr. Karla Lagos NEUT # 5.0 103/ul Normal 1.4-6.5 [facility] Comment on above: Performed By: #### P HOS, URIC, MG, CMP, DBIL, LIPID #### [facility] [address] [place] [address] Dr. Karla Lagos Neutrophils/100 WBC (Bld) 70.7 % Normal 43.0-75.0 [facility] Comment on above: Performed By: #### P HOS, URIC, MG, CMP, DBIL, LIPID #### [facility] [address] [place] [address] [address] Karla Lagos Platelet mean volume (Bld) [Entitic vol] 10.3 fL Normal 9.5-13.[address] [facility] Comment on above: Performed By: #### P HOS, URIC, MG, CMP, DBIL, LIPID #### [facility] [address] [place] [address] [address] Karla Lagos PLT 263 103/ul Normal 150-450 [facility] Comment on above: Performed By: #### P HOS, URIC, MG, CMP, DBIL, LIPID #### [facility] [address] [place] [address] [address] Karla Lagos RBC 5.69 106/ul Normal 4.70-6.10 [facility] Comment on above: Performed By: #### P HOS, URIC, MG, CMP, DBIL, LIPID #### [facility] [address] [place] [address] Dr. Karla Lagos WBC 7.0 103/ul Normal 4.0-11.[address] [facility] Comment on above: Performed By: #### P HOS, URIC, MG, CMP, DBIL, LIPID #### [facility] [address] [place] [address] Dr. Karla Lagos LIPID PROFILEon 08-18-2022 CHOL-HDL RATIO NORM SEE BELOW Normal [facility] Comment on above: Result Comment: 3.3 - 4.4 LOW RISK 4.4 - 7.1 AVERAGE RISK 7.1 - 11.0 MODERATE RISK >11.0 HIGH RISK Performed By: #### P HOS, URIC, MG, CMP, DBIL, LIPID #### [facility] [address] [place] [address] Dr. Karla Lagos Cholesterol [Mass/Vol] 137 mg/dL Normal <=200 [facility] Comment on above: Performed By: #### P HOS, URIC, MG, CMP, DBIL, LIPID #### [facility] [address] [place] [address] [address] Karla Lagos Cholesterol in HDL [Mass/Vol] 45 mg/dL Normal 40-60 [facility] Comment on above: Performed By: #### P HOS, URIC, MG, CMP, DBIL, LIPID #### [facility] [address] [place] [address] [address] Karla Lagos Cholesterol in LDL [Mass/Vol] 59.0 mg/dL Normal [facility] Comment on above: Performed By: #### P HOS, URIC, MG, CMP, DBIL, LIPID #### [facility] [address] [place] [address] [address] Karla Lagos Cholesterol.total/Ch olesterol in HDL [Mass ratio] 3.0 {ratio} Normal [facility] Comment on above: Performed By: #### P HOS, URIC, MG, CMP, DBIL, LIPID #### [facility] [address] [place] [address] Dr. Karla Lagos HDL NORMAL > or = 60 mg/dl - LO W CARDIOVASCULAR RISK <40 mg/dl - HIGH CARDIOVASCULAR RISK Normal [facility] Comment on above: Performed By: #### P HOS, URIC, MG, CMP, DBIL, LIPID #### [facility] [address] [place] [address] Dr. Karla Lagos LDL CALC NORMAL SEE BELOW Normal [facility] Comment on above: Result Comment: <100 mg/dl OPTIMAL 100 - 129 mg/dl NEAR OR ABOVE OPTIMAL 130 - 159 mg/dl BORDERLINE HIGH 160 - 189 mg/dl HIGH >190 mg/dl VERY HIGH Performed By: #### P HOS, URIC, MG, CMP, DBIL, LIPID #### [facility] [address] [place] [address] [address] Karla Lagos Triglyceride [Mass/Vol] 165 mg/dL Critically high <=150 [facility] Comment on above: Performed By: #### P HOS, URIC, MG, CMP, DBIL, LIPID #### [facility] [address] [place] [address] [address] Karla Lagos VLDL CALC 33.0 mg/dL Normal [facility] Comment on above: Performed By: #### P HOS, URIC, MG, CMP, DBIL, LIPID #### [facility] [address] [place] [address] Dr. Karla Lagos MAGNESIUMon 08-18-2022 Magnesium [Mass/Vol] 1.7 mg/dL Critically low 1.8-2.[address] [facility] Comment on above: Performed By: #### P HOS, URIC, MG, CMP, DBIL, LIPID #### [facility] [address] [place] [address] [address] Karla Lagos PHOSPHORUSon 08-18-2022 Phosphate [Mass/Vol] 3.6 mg/dL Normal 2.6-4.7 [facility] Comment on above: Performed By: #### P HOS, URIC, MG, CMP, DBIL, LIPID #### [facility] [address] [place] [address] Dr. Karla Lagos PROF 14(COMP METB)on 023 Albumin [Mass/Vol] 4.0 g/dL Normal 3.4-5.[address] [facility] Comment on above: Performed By: #### P HOS, URIC, MG, CMP, DBIL, LIPID #### [facility] [address] [place] [address] Dr. Karla Lagos Albumin/Globulin [Mass ratio] 1.1 {ratio} Normal [facility] Comment on above: Performed By: #### P HOS, URIC, MG, CMP, DBIL, LIPID #### [facility] [address] [place] [address] Dr. Karla Lagos ALP [Catalytic activity/Vol] 96 U/L Normal 46-116 [facility] Comment on above: Performed By: #### P HOS, URIC, MG, CMP, DBIL, LIPID #### [facility] [address] [place] [address] Dr. Karla Lagos ALT [Catalytic activity/Vol] 42 U/L Normal 16-63 [facility] Comment on above: Performed By: #### P HOS, URIC, MG, CMP, DBIL, LIPID #### [facility] [address] [place] [address] Dr. Karla Lagos Anion gap [Moles/Vol] 12.9 mmol/L Normal [facility] Comment on above: Performed By: #### P HOS, URIC, MG, CMP, DBIL, LIPID #### [facility] [address] [place] [address] Dr. Karla Lagos AST [Catalytic activity/Vol] 22 U/L Normal 15-37 [facility] Comment on above: Performed By: #### P HOS, URIC, MG, CMP, DBIL, LIPID #### [facility] [address] [place] [address] Dr. Karla Lagos Bilirubin [Mass/Vol] 0.7 mg/dL Normal 0.2-1.0 [facility] Comment on above: Performed By: #### P HOS, URIC, MG, CMP, DBIL, LIPID #### [facility] [address] [place] [address] Dr. Karla Lagos Calcium [Mass/Vol] 9.4 mg/dL Normal 8.5-10.1 [facility] Comment on above: Performed By: #### P HOS, URIC, MG, CMP, DBIL, LIPID #### [facility] [address] [place] [address] Dr. Karla Lagos Chloride [Moles/Vol] 103 mmol/L Normal 98-107 [facility] Comment on above: Performed By: #### P HOS, URIC, MG, CMP, DBIL, LIPID #### [facility] [address] [place] [address] Dr. Karla Lagos CO2 [Moles/Vol] 27.8 mmol/L Normal 21.0-32.0 [facility] Comment on above: Performed By: #### P HOS, URIC, MG, CMP, DBIL, LIPID #### [facility] [address] [place] [address] Dr. Karla Lagos Creatinine [Mass/Vol] 1.28 mg/dL Normal 0.70-1.30 [facility] Comment on above: Performed By: #### P HOS, URIC, MG, CMP, DBIL, LIPID #### [facility] [address] [place] [address] Dr. Karla Lagos EGFR-AF SAO TOMEAN >60 Normal >=60 [facility] Comment on above: Performed By: #### P HOS, URIC, MG, CMP, DBIL, LIPID #### [facility] [address] [place] [address] Dr. Karla Lagos EGFR-NON AF SAO TOMEAN 57 mL/min/1.73m2 Critically low >=[address] [facility] Comment on above: Performed By: #### P HOS, URIC, MG, CMP, DBIL, LIPID #### [facility] [address] [place] [address] Dr. Karla Lagos Globulin (S) [Mass/Vol] 3.5 g/dL Normal [facility] Comment on above: Performed By: #### P HOS, URIC, MG, CMP, DBIL, LIPID #### [facility] [address] [place] [address] Dr. Karla Lagos Glucose [Mass/Vol] 123 mg/dL Critically high 74-106 [facility] Comment on above: Performed By: #### P HOS, URIC, MG, CMP, DBIL, LIPID #### [facility] [address] [place] [address] Dr. Karla Lagos Potassium [Moles/Vol] 4.7 mmol/L Normal 3.5-5.[address] [facility] Comment on above: Performed By: #### P HOS, URIC, MG, CMP, DBIL, LIPID #### [facility] [address] [place] [address] Dr. Karla Lagos Protein [Mass/Vol] 7.5 g/dL Normal 6.4-8.2 [facility] Comment on above: Performed By: #### P HOS, URIC, MG, CMP, DBIL, LIPID #### [facility] [address] [place] [address] Dr. Karla Lagos Sodium [Moles/Vol] 139 mmol/L Normal 136-[address] [facility] Comment on above: Performed By: #### P HOS, URIC, MG, CMP, DBIL, LIPID #### [facility] [address] [place] [address] Dr. Karla Lagos Urea nitrogen [Mass/Vol] 22.0 mg/dL Critically high 7.0-18.[address] [facility] Comment on above: Performed By: #### P HOS, URIC, MG, CMP, DBIL, LIPID #### [facility] [address] [address] [address] Karla Lagos Urea nitrogen/Creatinine [Mass ratio] 17.2 mg/mg Normal [facility] Comment on above: Performed By: #### P HOS, URIC, MG, CMP, DBIL, LIPID #### [facility] [address] [address] [address] Karla Lagos URIC ACID SERUMon 08-18-2022 Urate [Mass/Vol] 4.8 mg/dL Normal 3.5-7.[address] [facility] Comment on above: Performed By: #### P HOS, URIC, MG, CMP, DBIL, LIPID #### [facility] [address] [place] [address] Dr. Karla Lagos BK VIRUS PCR QUANTon 023 BKV DNA QUANT PCR PLASMA Negative Normal Negative [facility] Comment on above: Result Comment: No B K DNA detected. . The linear range of the assay is 22 - 100,000,000 IU/mL. Performed By: #### B KVIRUS #### [facility] [address] [place] [address] Dr. Karla Lagos Log10 BKV DNA Plasma Normal [facility] Comment on above: Performed By: #### B KVIRUS #### [facility] [address] [place] [address] Dr. Karla Lagos FK506 (TACROLIMUS) WHOLE BLO ODon 07-21-2022 Tacrolimus (FK506), Blood 6.1 ng/mL Normal 2.0-20.[address] [facility] Comment on above: Result Comment: Trou gh (immediately following transplant) 15.0 . Trough (steady state, 2 weeks or more after transplant): 3.0 - 8.0 . Performed by LC-MS/MS technology. Performed By: #### P HOS, URIC, MG, CMP, DBIL, LIPID #### [facility] [address] [place] [address] Dr. Karla Lagos BILIRUBIN CONJUGATED (DIRECT )on 07-19-2022 BILI, CONJUGATED 0.2 mg/dL Normal 0.0-0.[address] [facility] Comment on above: Performed By: #### P HOS, URIC, MG, CMP, DBIL, LIPID #### [facility] [address] [place] [address] Dr. Karla Lagos CBC AUTO DIFFon 07-19-2022 BASO # 0.0 103/ul Normal 0.0-0.1 [facility] Comment on above: Performed By: #### P HOS, URIC, MG, CMP, DBIL, LIPID #### [facility] [address] [place] [address] Dr. Karla Lagos Basophils/100 WBC (Bld) 0.4 % Normal 0.2-2.0 [facility] Comment on above: Performed By: #### P HOS, URIC, MG, CMP, DBIL, LIPID #### [facility] [address] [place] [address] Dr. Karla Lagos EO # 0.1 103/ul Normal 0.0-0.7 [facility] Comment on above: Performed By: #### P HOS, URIC, MG, CMP, DBIL, LIPID #### [facility] [address] [place] [address] Dr. Karla Lagos Eosinophils/100 WBC (Bld) 1.6 % Normal 0.9-7.[address] [facility] Comment on above: Performed By: #### P HOS, URIC, MG, CMP, DBIL, LIPID #### [facility] [address] [place] [address] Dr. Karla Lagos Erythrocyte distribution width (RBC) [Ratio] 14.2 % Normal 11.0-15.0 [facility] Comment on above: Performed By: #### P HOS, URIC, MG, CMP, DBIL, LIPID #### [facility] [address] [place] [address] Dr. Karla Lagos Hematocrit (Bld) [Volume fraction] 49.8 % Normal 42.0-54.[address] [facility] Comment on above: Performed By: #### P HOS, URIC, MG, CMP, DBIL, LIPID #### [facility] [address] [place] [address] Dr. Karla Lagos Hemoglobin (Bld) [Mass/Vol] 16.6 g/dL Normal 14.0-18.[address] [facility] Comment on above: Performed By: #### P HOS, URIC, MG, CMP, DBIL, LIPID #### [facility] [address] [place] [address] Dr. Karla Lagos IG # 0.03 10e3/ul Normal 0.00-0.[address] [facility] Comment on above: Performed By: #### P HOS, URIC, MG, CMP, DBIL, LIPID #### [facility] [address] [place] [address] Dr. Karla Lagos IG % 0.4 % Normal 0.0-0.[address] [facility] Comment on above: Performed By: #### P HOS, URIC, MG, CMP, DBIL, LIPID #### [facility] [address] [place] [address] Dr. Karla Lagos LYMPH # 1.1 103/ul Critically low 1.2-3.8 [facility] Comment on above: Performed By: #### P HOS, URIC, MG, CMP, DBIL, LIPID #### [facility] [address] [place] [address] Dr. Karla Lagos Lymphocytes/100 WBC (Bld) 14.9 % Critically low 20.5-60.[address] [facility] Comment on above: Performed By: #### P HOS, URIC, MG, CMP, DBIL, LIPID #### [facility] [address] [place] [address] Dr. Karla Lagos MANUAL DIFF REQ NO Normal [facility] Comment on above: Performed By: #### P HOS, URIC, MG, CMP, DBIL, LIPID #### [facility] [address] [place] [address] Dr. Karla Lagos MCH (RBC) [Entitic mass] 30.4 pg Normal 25.9-34.[address] [facility] Comment on above: Performed By: #### P HOS, URIC, MG, CMP, DBIL, LIPID #### [facility] [address] [place] [address] Dr. Karla Lagos MCHC (RBC) [Mass/Vol] 33.3 g/dL Normal 29.9-35.2 [facility] Comment on above: Performed By: #### P HOS, URIC, MG, CMP, DBIL, LIPID #### [facility] [address] [place] [address] Dr. Karla Lagos MCV (RBC) [Entitic vol] 91.2 fL Normal 80.0-94.0 [facility] Comment on above: Performed By: #### P HOS, URIC, MG, CMP, DBIL, LIPID #### [facility] [address] [place] [address] Dr. Karla Lagos MONO # 0.7 103/ul Normal 0.3-0.8 [facility] Comment on above: Performed By: #### P HOS, URIC, MG, CMP, DBIL, LIPID #### [facility] [address] [place] [address] Dr. Karla Lagos Monocytes/100 WBC (Bld) 10.3 % Normal 1.7-12.0 [facility] Comment on above: Performed By: #### P HOS, URIC, MG, CMP, DBIL, LIPID #### [facility] [address] [place] [address] Dr. Karla Lagos NEUT # 5.1 103/ul Normal 1.4-6.5 [facility] Comment on above: Performed By: #### P HOS, URIC, MG, CMP, DBIL, LIPID #### [facility] [address] [place] [address] Dr. Karla Lagos Neutrophils/100 WBC (Bld) 72.4 % Normal 43.0-75.0 [facility] Comment on above: Performed By: #### P HOS, URIC, MG, CMP, DBIL, LIPID #### [facility] [address] [place] [address] Dr. Karla Lagos Platelet mean volume (Bld) [Entitic vol] 10.4 fL Normal 9.5-13.5 [facility] Comment on above: Performed By: #### P HOS, URIC, MG, CMP, DBIL, LIPID #### [facility] [address] [address] [address] Karla Lagos PLT 248 103/ul Normal 150-450 [facility] Comment on above: Performed By: #### P HOS, URIC, MG, CMP, DBIL, LIPID #### [facility] [address] [address] [address] Karla Lagos RBC 5.46 106/ul Normal 4.70-6.10 [facility] Comment on above: Performed By: #### P HOS, URIC, MG, CMP, DBIL, LIPID #### [facility] [address] [address] [address] Karla Lagos WBC 7.1 103/ul Normal 4.0-11.0 [facility] Comment on above: Performed By: #### P HOS, URIC, MG, CMP, DBIL, LIPID #### [facility] [address] [place] [address] Dr. Karla Lagos LIPID PROFILEon 07-19-2022 CHOL-HDL RATIO NORM SEE BELOW Normal [facility] Comment on above: Result Comment: 3.3 - 4.4 LOW RISK 4.4 - 7.1 AVERAGE RISK 7.1 - 11.0 MODERATE RISK >11.0 HIGH RISK Performed By: #### P HOS, URIC, MG, CMP, DBIL, LIPID #### [facility] [address] [place] [address] Dr. Karla Lagos Cholesterol [Mass/Vol] 130 mg/dL Normal <=200 [facility] Comment on above: Performed By: #### P HOS, URIC, MG, CMP, DBIL, LIPID #### [facility] [address] [place] [address] Dr. Karla Lagos Cholesterol in HDL [Mass/Vol] 43 mg/dL Normal 40-60 [facility] Comment on above: Performed By: #### P HOS, URIC, MG, CMP, DBIL, LIPID #### [facility] [address] [place] [address] Dr. Karla Lagos Cholesterol in LDL [Mass/Vol] 61.8 mg/dL Normal [facility] Comment on above: Performed By: #### P HOS, URIC, MG, CMP, DBIL, LIPID #### [facility] [address] [address] [address] Karla Lagos Cholesterol.total/Ch olesterol in HDL [Mass ratio] 3.0 {ratio} Normal [facility] Comment on above: Performed By: #### P HOS, URIC, MG, CMP, DBIL, LIPID #### [facility] [address] [address] [address] Karla Lagos HDL NORMAL > or = 60 mg/dl - LO W CARDIOVASCULAR RISK <40 mg/dl - HIGH CARDIOVASCULAR RISK Normal [facility] Comment on above: Performed By: #### P HOS, URIC, MG, CMP, DBIL, LIPID #### [facility] [address] [address] [address] Karla Lagos LDL CALC NORMAL SEE BELOW Normal [facility] Comment on above: Result Comment: <100 mg/dl OPTIMAL 100 - 129 mg/dl NEAR OR ABOVE OPTIMAL 130 - 159 mg/dl BORDERLINE HIGH 160 - 189 mg/dl HIGH >190 mg/dl VERY HIGH Performed By: #### P HOS, URIC, MG, CMP, DBIL, LIPID #### [facility] [address] [address] [address] Karla Lagos Triglyceride [Mass/Vol] 126 mg/dL Normal <=150 [facility] Comment on above: Performed By: #### P HOS, URIC, MG, CMP, DBIL, LIPID #### [facility] [address] [address] [address] Karla Lagos VLDL CALC 25.2 mg/dL Normal [facility] Comment on above: Performed By: #### P HOS, URIC, MG, CMP, DBIL, LIPID #### [facility] [address] [address] [address] Karla Lagos MAGNESIUMon 07-19-2022 Magnesium [Mass/Vol] 1.7 mg/dL Critically low 1.8-2.[address] [facility] Comment on above: Performed By: #### P HOS, URIC, MG, CMP, DBIL, LIPID #### [facility] [address] [place] [address] Dr. Karla Lagos PHOSPHORUSon 07-19-2022 Phosphate [Mass/Vol] 3.1 mg/dL Normal 2.6-4.[address] [facility] Comment on above: Performed By: #### P HOS, URIC, MG, CMP, DBIL, LIPID #### [facility] [address] [place] [address] Dr. Karla Lagos PROF 14(COMP METB)on 023 Albumin [Mass/Vol] 4.0 g/dL Normal 3.4-5.[address] [facility] Comment on above: Performed By: #### P HOS, URIC, MG, CMP, DBIL, LIPID #### [facility] [address] [place] [address] Dr. Karla Lagos Albumin/Globulin [Mass ratio] 1.3 {ratio} Normal [facility] Comment on above: Performed By: #### P HOS, URIC, MG, CMP, DBIL, LIPID #### [facility] [address] [place] [address] Dr. Karla Lagos ALP [Catalytic activity/Vol] 79 U/L Normal 46-[address] [facility] Comment on above: Performed By: #### P HOS, URIC, MG, CMP, DBIL, LIPID #### [facility] [address] [place] [address] Dr. Karla Lagos ALT [Catalytic activity/Vol] 40 U/L Normal 16-[address] [facility] Comment on above: Performed By: #### P HOS, URIC, MG, CMP, DBIL, LIPID #### [facility] [address] [place] [address] Dr. Karla Lagos Anion gap [Moles/Vol] 12.8 mmol/L Normal [facility] Comment on above: Performed By: #### P HOS, URIC, MG, CMP, DBIL, LIPID #### [facility] [address] [place] [address] Dr. Karla Lagos AST [Catalytic activity/Vol] 24 U/L Normal 15-[address] [facility] Comment on above: Performed By: #### P HOS, URIC, MG, CMP, DBIL, LIPID #### [facility] [address] [place] [address] Dr. Karla Lagos Bilirubin [Mass/Vol] 0.7 mg/dL Normal 0.2-1.0 [facility] Comment on above: Performed By: #### P HOS, URIC, MG, CMP, DBIL, LIPID #### [facility] [address] [place] [address] Dr. Karla Lagos Calcium [Mass/Vol] 9.3 mg/dL Normal 8.5-10.1 [facility] Comment on above: Performed By: #### P HOS, URIC, MG, CMP, DBIL, LIPID #### [facility] [address] [place] [address] Dr. Karla Lagos Chloride [Moles/Vol] 105 mmol/L Normal 98-107 [facility] Comment on above: Performed By: #### P HOS, URIC, MG, CMP, DBIL, LIPID #### [facility] [address] [place] [address] Dr. Karla Lagos CO2 [Moles/Vol] 28.4 mmol/L Normal 21.0-32.0 [facility] Comment on above: Performed By: #### P HOS, URIC, MG, CMP, DBIL, LIPID #### [facility] [address] [place] [address] Dr. Karla Lagos Creatinine [Mass/Vol] 1.23 mg/dL Normal 0.70-1.30 [facility] Comment on above: Performed By: #### P HOS, URIC, MG, CMP, DBIL, LIPID #### [facility] [address] [place] [address] Dr. Karla Lagos EGFR-AF SAO TOMEAN >60 Normal >=60 [facility] Comment on above: Performed By: #### P HOS, URIC, MG, CMP, DBIL, LIPID #### [facility] [address] [place] [address] Dr. Karla Lagos EGFR-NON AF SAO TOMEAN =60 Normal >=60 [facility] Comment on above: Performed By: #### P HOS, URIC, MG, CMP, DBIL, LIPID #### [facility] [address] [place] [address] Dr. Karla Lagos Globulin (S) [Mass/Vol] 3.1 g/dL Normal [facility] Comment on above: Performed By: #### P HOS, URIC, MG, CMP, DBIL, LIPID #### [facility] [address] [place] [address] Dr. Karla Lagos Glucose [Mass/Vol] 114 mg/dL Critically high 74-106 [facility] Comment on above: Performed By: #### P HOS, URIC, MG, CMP, DBIL, LIPID #### [facility] [address] [place] [address] Dr. Karla Lagos Potassium [Moles/Vol] 4.2 mmol/L Normal 3.5-5.[address] [facility] Comment on above: Performed By: #### P HOS, URIC, MG, CMP, DBIL, LIPID #### [facility] [address] [place] [address] Dr. Karla Lagos Protein [Mass/Vol] 7.1 g/dL Normal 6.4-8.[address] [facility] Comment on above: Performed By: #### P HOS, URIC, MG, CMP, DBIL, LIPID #### [facility] [address] [place] [address] Dr. Karla Lagos Sodium [Moles/Vol] 142 mmol/L Normal 136-[address] [facility] Comment on above: Performed By: #### P HOS, URIC, MG, CMP, DBIL, LIPID #### [facility] [address] [place] [address] Dr. Karla Lagos Urea nitrogen [Mass/Vol] 15.0 mg/dL Normal 7.0-18.0 [facility] Comment on above: Performed By: #### P HOS, URIC, MG, CMP, DBIL, LIPID #### [facility] [address] [place] [address] Dr. Karla Lagos Urea nitrogen/Creatinine [Mass ratio] 12.2 mg/mg Normal [facility] Comment on above: Performed By: #### P HOS, URIC, MG, CMP, DBIL, LIPID #### [facility] [address] [address] [address] Karla Lagos URIC ACID SERUMon 07-19-2022 Urate [Mass/Vol] 5.1 mg/dL Normal 3.5-7.[address] [facility] Comment on above: Performed By: #### P HOS, URIC, MG, CMP, DBIL, LIPID #### [facility] [address] [place] [address] Dr. Karla Lagos FK506 (TACROLIMUS) WHOLE BLO ODon 06-04-2022 Tacrolimus (FK506), Blood 5.1 ng/mL Normal 2.0-20.[address] [facility] Comment on above: Result Comment: Trou gh (immediately following transplant) 15.0 . Trough (steady state, 2 weeks or more after transplant): 3.0 - 8.0 . Performed by LC-MS/MS technology. Performed By: #### P HOS, URIC, MG, CMP, DBIL, LIPID #### [facility] [address] [place] [address] Dr. Karla Lagos BK VIRUS PCR QUANTon 023 BKV DNA QUANT PCR PLASMA Negative Normal Negative [facility] Comment on above: Result Comment: No B K DNA detected. . The linear range of the assay is 22 - 100,000,000 IU/mL. Performed By: #### P HOS, URIC, MG, CMP, DBIL, LIPID #### [facility] [address] [place] [address] Dr. Karal Lagos Log10 BKV DNA Plasma Normal [facility] Comment on above: Performed By: #### P HOS, URIC, MG, CMP, DBIL, LIPID #### [facility] [address] [place] [address] Dr. Karla Lagos BILIRUBIN CONJUGATED (DIRECT )on 06-01-2022 BILI, CONJUGATED 0.1 mg/dL Normal 0.0-0.[address] [facility] Comment on above: Performed By: #### P HOS, URIC, MG, CMP, DBIL, LIPID #### [facility] [address] [place] [address] Dr. Karla Lagos CBC AUTO DIFFon 06-01-2022 BASO # 0.1 103/ul Normal 0.0-0.[address] [facility] Comment on above: Performed By: #### P HOS, URIC, MG, CMP, DBIL, LIPID #### [facility] [address] [place] [address] Dr. Karla Lagos Basophils/100 WBC (Bld) 0.9 % Normal 0.2-2.[address] [facility] Comment on above: Performed By: #### P HOS, URIC, MG, CMP, DBIL, LIPID #### [facility] [address] [place] [address] Dr. Karla Lagos EO # 0.1 103/ul Normal 0.0-0.7 [facility] Comment on above: Performed By: #### P HOS, URIC, MG, CMP, DBIL, LIPID #### [facility] [address] [place] [address] Dr. Karla Lagos Eosinophils/100 WBC (Bld) 1.6 % Normal 0.9-7.[address] [facility] Comment on above: Performed By: #### P HOS, URIC, MG, CMP, DBIL, LIPID #### [facility] [address] [place] [address] Dr. Karla Lagos Erythrocyte distribution width (RBC) [Ratio] 13.4 % Normal 11.0-15.[address] [facility] Comment on above: Performed By: #### P HOS, URIC, MG, CMP, DBIL, LIPID #### [facility] [address] [place] [address] Dr. Karla Lagos Hematocrit (Bld) [Volume fraction] 46.3 % Normal 42.0-54.[address] [facility] Comment on above: Performed By: #### P HOS, URIC, MG, CMP, DBIL, LIPID #### [facility] [address] [place] [address] Dr. Karla Lagos Hemoglobin (Bld) [Mass/Vol] 15.4 g/dL Normal 14.0-18.[address] [facility] Comment on above: Performed By: #### P HOS, URIC, MG, CMP, DBIL, LIPID #### [facility] [address] [place] [address] Dr. Karla Lagos IG # 0.10 10e3/ul Critically high 0.00-0.[address] [facility] Comment on above: Performed By: #### P HOS, URIC, MG, CMP, DBIL, LIPID #### [facility] [address] [place] [address] Dr. Karla Lagos IG % 1.3 % Critically high 0.0-0.[address] [facility] Comment on above: Performed By: #### P HOS, URIC, MG, CMP, DBIL, LIPID #### [facility] [address] [place] [address] Dr. Karla Lagos LYMPH # 1.0 103/ul Critically low 1.2-3.8 [facility] Comment on above: Performed By: #### P HOS, URIC, MG, CMP, DBIL, LIPID #### [facility] [address] [place] [address] Dr. Karla Lagos Lymphocytes/100 WBC (Bld) 12.8 % Critically low 20.5-60.[address] [facility] Comment on above: Performed By: #### P HOS, URIC, MG, CMP, DBIL, LIPID #### [facility] [address] [place] [address] Dr. Karla Lagos MANUAL DIFF REQ NO Normal [facility] Comment on above: Performed By: #### P HOS, URIC, MG, CMP, DBIL, LIPID #### [facility] [address] [place] [address] Dr. Karla Lagos MCH (RBC) [Entitic mass] 30.4 pg Normal 25.9-34.[address] [facility] Comment on above: Performed By: #### P HOS, URIC, MG, CMP, DBIL, LIPID #### [facility] [address] [place] [address] Dr. Karla Lagos MCHC (RBC) [Mass/Vol] 33.3 g/dL Normal 29.9-35.[address] [facility] Comment on above: Performed By: #### P HOS, URIC, MG, CMP, DBIL, LIPID #### [facility] [address] [place] [address] Dr. Karla Lagos MCV (RBC) [Entitic vol] 91.3 fL Normal 80.0-94.[address] [facility] Comment on above: Performed By: #### P HOS, URIC, MG, CMP, DBIL, LIPID #### [facility] [address] [place] [address] Dr. Karla Lagos MONO # 0.6 103/ul Normal 0.3-0.8 [facility] Comment on above: Performed By: #### P HOS, URIC, MG, CMP, DBIL, LIPID #### [facility] [address] [place] [address] Dr. Karla Lagos Monocytes/100 WBC (Bld) 8.6 % Normal 1.7-12.0 [facility] Comment on above: Performed By: #### P HOS, URIC, MG, CMP, DBIL, LIPID #### [facility] [address] [place] [address] Dr. Karla Lagos NEUT # 5.5 103/ul Normal 1.4-6.5 [facility] Comment on above: Performed By: #### P HOS, URIC, MG, CMP, DBIL, LIPID #### [facility] [address] [place] [address] Dr. Karla Lagos Neutrophils/100 WBC (Bld) 74.8 % Normal 43.0-75.0 [facility] Comment on above: Performed By: #### P HOS, URIC, MG, CMP, DBIL, LIPID #### [facility] [address] [place] [address] Dr. Karla Lagos Platelet mean volume (Bld) [Entitic vol] 9.6 fL Normal 9.5-13.5 [facility] Comment on above: Performed By: #### P HOS, URIC, MG, CMP, DBIL, LIPID #### [facility] [address] [place] [address] Dr. Karla Lagos PLT 312 103/ul Normal 150-450 [facility] Comment on above: Performed By: #### P HOS, URIC, MG, CMP, DBIL, LIPID #### [facility] [address] [place] [address] Dr. Karla Lagos RBC 5.07 106/ul Normal 4.70-6.10 [facility] Comment on above: Performed By: #### P HOS, URIC, MG, CMP, DBIL, LIPID #### [facility] [address] [address] [address] Karla Lagos WBC 7.4 103/ul Normal 4.0-11.0 [facility] Comment on above: Performed By: #### P HOS, URIC, MG, CMP, DBIL, LIPID #### [facility] [address] [address] [address] Karla Lagos LIPID PROFILEon 06-01-2022 CHOL-HDL RATIO NORM SEE BELOW Normal [facility] Comment on above: Result Comment: 3.3 - 4.4 LOW RISK 4.4 - 7.1 AVERAGE RISK 7.1 - 11.0 MODERATE RISK >11.0 HIGH RISK Performed By: #### P HOS, URIC, MG, CMP, DBIL, LIPID #### [facility] [address] [place] [address] Dr. Karla Lagos Cholesterol [Mass/Vol] 108 mg/dL Normal <=200 [facility] Comment on above: Performed By: #### P HOS, URIC, MG, CMP, DBIL, LIPID #### [facility] [address] [place] [address] Dr. Karla Lagos Cholesterol in HDL [Mass/Vol] 36 mg/dL Critically low 40-60 [facility] Comment on above: Performed By: #### P HOS, URIC, MG, CMP, DBIL, LIPID #### [facility] [address] [place] [address] Dr. Karla Lagos Cholesterol in LDL [Mass/Vol] 58.4 mg/dL Normal [facility] Comment on above: Performed By: #### P HOS, URIC, MG, CMP, DBIL, LIPID #### [facility] [address] [place] [address] Dr. Karla Lagos Cholesterol.total/Ch olesterol in HDL [Mass ratio] 3.0 {ratio} Normal [facility] Comment on above: Performed By: #### P HOS, URIC, MG, CMP, DBIL, LIPID #### [facility] [address] [address] [address] Karla Lagos HDL NORMAL > or = 60 mg/dl - LO W CARDIOVASCULAR RISK <40 mg/dl - HIGH CARDIOVASCULAR RISK Normal [facility] Comment on above: Performed By: #### P HOS, URIC, MG, CMP, DBIL, LIPID #### [facility] [address] [address] [address] Karla Lagos LDL CALC NORMAL SEE BELOW Normal [facility] Comment on above: Result Comment: <100 mg/dl OPTIMAL 100 - 129 mg/dl NEAR OR ABOVE OPTIMAL 130 - 159 mg/dl BORDERLINE HIGH 160 - 189 mg/dl HIGH >190 mg/dl VERY HIGH Performed By: #### P HOS, URIC, MG, CMP, DBIL, LIPID #### [facility] [address] [place] [address] Dr. Karla Lagos Triglyceride [Mass/Vol] 68 mg/dL Normal <=150 [facility] Comment on above: Performed By: #### P HOS, URIC, MG, CMP, DBIL, LIPID #### [facility] [address] [place] [address] Dr. Karla Lagos VLDL CALC 13.6 mg/dL Normal [facility] Comment on above: Performed By: #### P HOS, URIC, MG, CMP, DBIL, LIPID #### [facility] [address] [place] [address] Dr. Karla Lagos MAGNESIUMon 06-01-2022 Magnesium [Mass/Vol] 1.7 mg/dL Critically low 1.8-2.[address] [facility] Comment on above: Performed By: #### P HOS, URIC, MG, CMP, DBIL, LIPID #### [facility] [address] [place] [address] Dr. Karla Lagos PHOSPHORUSon 06-01-2022 Phosphate [Mass/Vol] 3.7 mg/dL Normal 2.6-4.[address] [facility] Comment on above: Performed By: #### P HOS, URIC, MG, CMP, DBIL, LIPID #### [facility] [address] [place] [address] Dr. Karla Lagos PROF 14(COMP METB)on 023 Albumin [Mass/Vol] 3.4 g/dL Normal 3.4-5.[address] [facility] Comment on above: Performed By: #### P HOS, URIC, MG, CMP, DBIL, LIPID #### [facility] [address] [place] [address] Dr. Karla Lagos Albumin/Globulin [Mass ratio] 1.0 {ratio} Normal [facility] Comment on above: Performed By: #### P HOS, URIC, MG, CMP, DBIL, LIPID #### [facility] [address] [place] [address] Dr. Karla Lagos ALP [Catalytic activity/Vol] 92 U/L Normal 46-[address] [facility] Comment on above: Performed By: #### P HOS, URIC, MG, CMP, DBIL, LIPID #### [facility] [address] [place] [address] Dr. Karla Lagos ALT [Catalytic activity/Vol] 33 U/L Normal 16-63 [facility] Comment on above: Performed By: #### P HOS, URIC, MG, CMP, DBIL, LIPID #### [facility] [address] [place] [address] Dr. Karla Lagos Anion gap [Moles/Vol] 12.7 mmol/L Normal [facility] Comment on above: Performed By: #### P HOS, URIC, MG, CMP, DBIL, LIPID #### [facility] [address] [place] [address] Dr. Karla Lagos AST [Catalytic activity/Vol] 21 U/L Normal 15-37 [facility] Comment on above: Performed By: #### P HOS, URIC, MG, CMP, DBIL, LIPID #### [facility] [address] [place] [address] Dr. Karla Lagos Bilirubin [Mass/Vol] 0.4 mg/dL Normal 0.2-1.[address] [facility] Comment on above: Performed By: #### P HOS, URIC, MG, CMP, DBIL, LIPID #### [facility] [address] [place] [address] Dr. Karla Lagos Calcium [Mass/Vol] 9.0 mg/dL Normal 8.5-10.1 [facility] Comment on above: Performed By: #### P HOS, URIC, MG, CMP, DBIL, LIPID #### [facility] [address] [place] [address] Dr. Karla Lagos Chloride [Moles/Vol] 104 mmol/L Normal 98-107 [facility] Comment on above: Performed By: #### P HOS, URIC, MG, CMP, DBIL, LIPID #### [facility] [address] [place] [address] Dr. Karla Lagos CO2 [Moles/Vol] 28.7 mmol/L Normal 21.0-32.0 [facility] Comment on above: Performed By: #### P HOS, URIC, MG, CMP, DBIL, LIPID #### [facility] [address] [place] [address] Dr. Karla Lagos Creatinine [Mass/Vol] 1.15 mg/dL Normal 0.70-1.[address] [facility] Comment on above: Performed By: #### P HOS, URIC, MG, CMP, DBIL, LIPID #### [facility] [address] [place] [address] Dr. Karla Lagos EGFR-AF SAO TOMEAN >60 Normal >=60 [facility] Comment on above: Performed By: #### P HOS, URIC, MG, CMP, DBIL, LIPID #### [facility] [address] [place] [address] Dr. Karla Lagos EGFR-NON AF SAO TOMEAN >60 Normal >=60 [facility] Comment on above: Performed By: #### P HOS, URIC, MG, CMP, DBIL, LIPID #### [facility] [address] [place] [address] Dr. Karla Lagos Globulin (S) [Mass/Vol] 3.3 g/dL Normal [facility] Comment on above: Performed By: #### P HOS, URIC, MG, CMP, DBIL, LIPID #### [facility] [address] [place] [address] Dr. Karla Lagos Glucose [Mass/Vol] 112 mg/dL Critically high 74-106 [facility] Comment on above: Performed By: #### P HOS, URIC, MG, CMP, DBIL, LIPID #### [facility] [address] [place] [address] Dr. Karla Lagos Potassium [Moles/Vol] 4.4 mmol/L Normal 3.5-5.[address] [facility] Comment on above: Performed By: #### P HOS, URIC, MG, CMP, DBIL, LIPID #### [facility] [address] [address] [address] Karla Lagos Protein [Mass/Vol] 6.7 g/dL Normal 6.4-8.2 [facility] Comment on above: Performed By: #### P HOS, URIC, MG, CMP, DBIL, LIPID #### [facility] [address] [place] [address] Dr. Karla Lagos Sodium [Moles/Vol] 141 mmol/L Normal 136-[address] [facility] Comment on above: Performed By: #### P HOS, URIC, MG, CMP, DBIL, LIPID #### [facility] [address] [address] [address] Karla Lagos Urea nitrogen [Mass/Vol] 17.0 mg/dL Normal 7.0-18.[address] [facility] Comment on above: Performed By: #### P HOS, URIC, MG, CMP, DBIL, LIPID #### [facility] [address] [address] [address] Karla Lagos Urea nitrogen/Creatinine [Mass ratio] 14.8 mg/mg Normal [facility] Comment on above: Performed By: #### P HOS, URIC, MG, CMP, DBIL, LIPID #### [facility] [address] [place] [address] Dr. Karla Lagos URIC ACID SERUMon 06-01-2022 Urate [Mass/Vol] 5.3 mg/dL Normal 3.5-7.[address] [facility] Comment on above: Performed By: #### P HOS, URIC, MG, CMP, DBIL, LIPID #### [facility] [address] [address] [address] Karla Lagos NM STRESS/REST MULTIon 05-30 NM STRESS/REST MULTI Patient: VISHAL DUKE Exam Date: 05/30/2022 : 1960 Gender:M Ordering : DR FEDERICO CHESTER M.D. Admission #: [id number] Family : Order #: [id number] CLICK HERE TO VIEW EXAM RADIOLOGY REPORT [...] Basal inferoseptal. Basal inferior. Mid-anteroseptal. Mid-inferoseptal. Mid-inferior. [place]. SIZE: Large (5 or more segments). SEVERITY: [...] MD on 06/01/2022 at 06:10 Normal [facility] FK506 (TACROLIMUS) WHOLE BLO ODon 05-06-2022 Tacrolimus (FK506), Blood 5.4 ng/mL Normal 2.0-20.0 [facility] Comment on above: Result Comment: Trou gh (immediately following transplant) 15.0 . Trough (steady state, 2 weeks or more after transplant): 3.0 - 8.0 . Performed by LC-MS/MS technology. Performed By: #### P HOS, URIC, MG, CMP, DBIL, LIPID #### [facility] [address] [place] [address] Dr. Karla Lagos BK VIRUS PCR QUANTon 023 BKV DNA QUANT PCR PLASMA Negative Normal Negative [facility] Comment on above: Result Comment: No B K DNA detected. . The linear range of the assay is 22 - 100,000,000 IU/mL. Performed By: #### P HOS, URIC, MG, CMP, DBIL, LIPID #### [facility] [address] [place] [address] Dr. Karla Lagos Log10 BKV DNA Plasma Normal [facility] Comment on above: Performed By: #### P HOS, URIC, MG, CMP, DBIL, LIPID #### [facility] [address] [place] [address] Dr. Karla Lagos BILIRUBIN CONJUGATED (DIRECT )on 05-03-2022 BILI, CONJUGATED 0.2 mg/dL Normal 0.0-0.2 [facility] Comment on above: Performed By: #### P HOS, URIC, MG, CMP, DBIL, LIPID #### [facility] [address] [place] [address] Dr. Karla Lagos CBC AUTO DIFFon 05-03-2022 BASO # 0.1 103/ul Normal 0.0-0.1 [facility] Comment on above: Performed By: #### P HOS, URIC, MG, CMP, DBIL, LIPID #### [facility] [address] [place] [address] Dr. Karla Lagos Basophils/100 WBC (Bld) 0.7 % Normal 0.2-2.0 [facility] Comment on above: Performed By: #### P HOS, URIC, MG, CMP, DBIL, LIPID #### [facility] [address] [place] [address] Dr. Karla Lagos EO # 0.1 103/ul Normal 0.0-0.[address] [facility] Comment on above: Performed By: #### P HOS, URIC, MG, CMP, DBIL, LIPID #### [facility] [address] [place] [address] Dr. Karla Lagos Eosinophils/100 WBC (Bld) 1.6 % Normal 0.9-7.0 [facility] Comment on above: Performed By: #### P HOS, URIC, MG, CMP, DBIL, LIPID #### [facility] [address] [place] [address] Dr. Karla Lagos Erythrocyte distribution width (RBC) [Ratio] 13.7 % Normal 11.0-15.[address] [facility] Comment on above: Performed By: #### P HOS, URIC, MG, CMP, DBIL, LIPID #### [facility] [address] [place] [address] Dr. Karla Lagos Hematocrit (Bld) [Volume fraction] 49.1 % Normal 42.0-54.[address] [facility] Comment on above: Performed By: #### P HOS, URIC, MG, CMP, DBIL, LIPID #### [facility] [address] [place] [address] Dr. Karla Lagos Hemoglobin (Bld) [Mass/Vol] 16.5 g/dL Normal 14.0-18.0 [facility] Comment on above: Performed By: #### P HOS, URIC, MG, CMP, DBIL, LIPID #### [facility] [address] [place] [address] Dr. Karla Lagos IG # 0.05 10e3/ul Critically high 0.00-0.[address] [facility] Comment on above: Performed By: #### P HOS, URIC, MG, CMP, DBIL, LIPID #### [facility] [address] [place] [address] Dr. Karla Lagos IG % 0.7 % Critically high 0.0-0.5 [facility] Comment on above: Performed By: #### P HOS, URIC, MG, CMP, DBIL, LIPID #### [facility] [address] [place] [address] Dr. Karla Lagos LYMPH # 1.0 103/ul Critically low 1.2-3.8 [facility] Comment on above: Performed By: #### P HOS, URIC, MG, CMP, DBIL, LIPID #### [facility] [address] [place] [address] Dr. Karla Lagos Lymphocytes/100 WBC (Bld) 13.7 % Critically low 20.5-60.0 [facility] Comment on above: Performed By: #### P HOS, URIC, MG, CMP, DBIL, LIPID #### [facility] [address] [place] [address] Dr. Karla Lagos MANUAL DIFF REQ NO Normal [facility] Comment on above: Performed By: #### P HOS, URIC, MG, CMP, DBIL, LIPID #### [facility] [address] [place] [address] Dr. Karla Lagos MCH (RBC) [Entitic mass] 30.9 pg Normal 25.9-34.0 [facility] Comment on above: Performed By: #### P HOS, URIC, MG, CMP, DBIL, LIPID #### [facility] [address] [place] [address] Dr. Karla Lagos MCHC (RBC) [Mass/Vol] 33.6 g/dL Normal 29.9-35.2 [facility] Comment on above: Performed By: #### P HOS, URIC, MG, CMP, DBIL, LIPID #### [facility] [address] [place] [address] Dr. Karla Lagos MCV (RBC) [Entitic vol] 91.9 fL Normal 80.0-94.0 [facility] Comment on above: Performed By: #### P HOS, URIC, MG, CMP, DBIL, LIPID #### [facility] [address] [place] [address] Dr. Karla Lagos MONO # 0.7 103/ul Normal 0.3-0.8 [facility] Comment on above: Performed By: #### P HOS, URIC, MG, CMP, DBIL, LIPID #### [facility] [address] [place] [address] Dr. Karla Lagos Monocytes/100 WBC (Bld) 9.7 % Normal 1.7-12.0 [facility] Comment on above: Performed By: #### P HOS, URIC, MG, CMP, DBIL, LIPID #### [facility] [address] [address] [address] Karla Lagos NEUT # 5.2 103/ul Normal 1.4-6.5 [facility] Comment on above: Performed By: #### P HOS, URIC, MG, CMP, DBIL, LIPID #### [facility] [address] [place] [address] Dr. Karla Lagos Neutrophils/100 WBC (Bld) 73.6 % Normal 43.0-75.0 [facility] Comment on above: Performed By: #### P HOS, URIC, MG, CMP, DBIL, LIPID #### [facility] [address] [place] [address] Dr. Karla Lagos Platelet mean volume (Bld) [Entitic vol] 10.2 fL Normal 9.5-13.5 [facility] Comment on above: Performed By: #### P HOS, URIC, MG, CMP, DBIL, LIPID #### [facility] [address] [place] [address] Dr. Karla Lagos PLT 218 103/ul Normal 150-450 [facility] Comment on above: Performed By: #### P HOS, URIC, MG, CMP, DBIL, LIPID #### [facility] [address] [place] [address] Dr. Karla Lagos RBC 5.34 106/ul Normal 4.70-6.10 [facility] Comment on above: Performed By: #### P HOS, URIC, MG, CMP, DBIL, LIPID #### [facility] [address] [place] [address] Dr. Karla Lagos WBC 7.1 103/ul Normal 4.0-11.0 [facility] Comment on above: Performed By: #### P HOS, URIC, MG, CMP, DBIL, LIPID #### [facility] [address] [address] [address] Karla Lagos LIPID PROFILEon 05-03-2022 CHOL-HDL RATIO NORM SEE BELOW Normal [facility] Comment on above: Result Comment: 3.3 - 4.4 LOW RISK 4.4 - 7.1 AVERAGE RISK 7.1 - 11.0 MODERATE RISK >11.0 HIGH RISK Performed By: #### M G, CMP, URIC, DBIL, LIPID, PHOS #### [facility] [address] [address] [address] Karla Lagos Cholesterol [Mass/Vol] 121 mg/dL Normal <=[address] [facility] Comment on above: Performed By: #### M G, CMP, URIC, DBIL, LIPID, PHOS #### [facility] [address] [place] [address] Dr. Karla Lagos Cholesterol in HDL [Mass/Vol] 44 mg/dL Normal 40-60 [facility] Comment on above: Performed By: #### M G, CMP, URIC, DBIL, LIPID, PHOS #### [facility] [address] [address] [address] Karla Lagos Cholesterol in LDL [Mass/Vol] 40.0 mg/dL Normal [facility] Comment on above: Performed By: #### M G, CMP, URIC, DBIL, LIPID, PHOS #### [facility] [address] [place] [address] Dr. Karla Lagos Cholesterol.total/Ch olesterol in HDL [Mass ratio] 2.8 {ratio} Normal [facility] Comment on above: Performed By: #### M G, CMP, URIC, DBIL, LIPID, PHOS #### [facility] [address] [place] [address] Dr. Karla Lagos HDL NORMAL > or = 60 mg/dl - LO W CARDIOVASCULAR RISK <40 mg/dl - HIGH CARDIOVASCULAR RISK Normal [facility] Comment on above: Performed By: #### M G, CMP, URIC, DBIL, LIPID, PHOS #### [facility] [address] [address] [address] Karla Lagos LDL CALC NORMAL SEE BELOW Normal [facility] Comment on above: Result Comment: <100 mg/dl OPTIMAL 100 - 129 mg/dl NEAR OR ABOVE OPTIMAL 130 - 159 mg/dl BORDERLINE HIGH 160 - 189 mg/dl HIGH >190 mg/dl VERY HIGH Performed By: #### M G, CMP, URIC, DBIL, LIPID, PHOS #### [facility] [address] [address] [address] Karla Lagos Triglyceride [Mass/Vol] 185 mg/dL Critically high <=150 [facility] Comment on above: Performed By: #### M G, CMP, URIC, DBIL, LIPID, PHOS #### [facility] [address] [place] [address] Dr. Karla Lagos VLDL CALC 37.0 mg/dL Normal [facility] Comment on above: Performed By: #### M G, CMP, URIC, DBIL, LIPID, PHOS #### [facility] [address] [place] [address] Dr. Karla Lagos MAGNESIUMon 05-03-2022 Magnesium [Mass/Vol] 1.6 mg/dL Critically low 1.8-2.4 [facility] Comment on above: Performed By: #### P HOS, URIC, MG, CMP, DBIL, LIPID #### [facility] [address] [place] [address] Dr. Karla Lagos PHOSPHORUSon 05-03-2022 Phosphate [Mass/Vol] 3.6 mg/dL Normal 2.6-4.7 [facility] Comment on above: Performed By: #### P HOS, URIC, MG, CMP, DBIL, LIPID #### [facility] [address] [place] [address] Dr. Karla Lagos PROF 14(COMP METB)on 023 Albumin [Mass/Vol] 3.9 g/dL Normal 3.4-5.[address] [facility] Comment on above: Performed By: #### M G, CMP, URIC, DBIL, LIPID, PHOS #### [facility] [address] [place] [address] Dr. Karla Lagos Albumin/Globulin [Mass ratio] 1.3 {ratio} Normal [facility] Comment on above: Performed By: #### M G, CMP, URIC, DBIL, LIPID, PHOS #### [facility] [address] [place] [address] Dr. Karla Lagos ALP [Catalytic activity/Vol] 80 U/L Normal 46-116 [facility] Comment on above: Performed By: #### M G, CMP, URIC, DBIL, LIPID, PHOS #### [facility] [address] [place] [address] Dr. Karla Lagos ALT [Catalytic activity/Vol] 41 U/L Normal 16-63 [facility] Comment on above: Performed By: #### M G, CMP, URIC, DBIL, LIPID, PHOS #### [facility] [address] [place] [address] Dr. Karla Lagos Anion gap [Moles/Vol] 11.9 mmol/L Normal [facility] Comment on above: Performed By: #### M G, CMP, URIC, DBIL, LIPID, PHOS #### [facility] [address] [place] [address] Dr. Karla Lagos AST [Catalytic activity/Vol] 24 U/L Normal 15-37 [facility] Comment on above: Performed By: #### M G, CMP, URIC, DBIL, LIPID, PHOS #### [facility] [address] [place] [address] Dr. Karla Lagos Bilirubin [Mass/Vol] 0.7 mg/dL Normal 0.2-1.[address] [facility] Comment on above: Performed By: #### M G, CMP, URIC, DBIL, LIPID, PHOS #### [facility] [address] [place] [address] Dr. Karla Lagos Calcium [Mass/Vol] 9.2 mg/dL Normal 8.5-10.[address] [facility] Comment on above: Performed By: #### M G, CMP, URIC, DBIL, LIPID, PHOS #### [facility] [address] [place] [address] Dr. Karla Lagos Chloride [Moles/Vol] 103 mmol/L Normal 98-[address] [facility] Comment on above: Performed By: #### M G, CMP, URIC, DBIL, LIPID, PHOS #### [facility] [address] [place] [address] Dr. Karla Lagos CO2 [Moles/Vol] 28.1 mmol/L Normal 21.0-32.[address] [facility] Comment on above: Performed By: #### M G, CMP, URIC, DBIL, LIPID, PHOS #### [facility] [address] [place] [address] Dr. Karla Lagos Creatinine [Mass/Vol] 1.19 mg/dL Normal 0.70-1.[address] [facility] Comment on above: Performed By: #### M G, CMP, URIC, DBIL, LIPID, PHOS #### [facility] [address] [place] [address] Dr. Karla Lagos EGFR-AF SAO TOMEAN >60 Normal >=[address] [facility] Comment on above: Performed By: #### M G, CMP, URIC, DBIL, LIPID, PHOS #### [facility] [address] [place] [address] Dr. Karla Lagos EGFR-NON AF SAO TOMEAN >60 Normal >=[address] [facility] Comment on above: Performed By: #### M G, CMP, URIC, DBIL, LIPID, PHOS #### [facility] [address] [place] [address] Dr. Karla Lagos Globulin (S) [Mass/Vol] 2.9 g/dL Normal [facility] Comment on above: Performed By: #### M G, CMP, URIC, DBIL, LIPID, PHOS #### [facility] [address] [place] [address] Dr. Karla Lagos Glucose [Mass/Vol] 119 mg/dL Critically high 74-106 T [facility] Comment on above: Performed By: #### M G, CMP, URIC, DBIL, LIPID, PHOS #### [facility] [address] [place] [address] Dr. Karla Lagos Potassium [Moles/Vol] 4.0 mmol/L Normal 3.5-5.1 [facility] Comment on above: Performed By: #### M G, CMP, URIC, DBIL, LIPID, PHOS #### [facility] [address] [place] [address] Dr. Karla Lagos Protein [Mass/Vol] 6.8 g/dL Normal 6.4-8.2 [facility] Comment on above: Performed By: #### M G, CMP, URIC, DBIL, LIPID, PHOS #### [facility] [address] [address] [address] Karla Lagos Sodium [Moles/Vol] 139 mmol/L Normal 136-145 [facility] Comment on above: Performed By: #### M G, CMP, URIC, DBIL, LIPID, PHOS #### [facility] [address] [place] [address] Dr. Karla Lagos Urea nitrogen [Mass/Vol] 20.0 mg/dL Critically high 7.0-18.[address] [facility] Comment on above: Performed By: #### M G, CMP, URIC, DBIL, LIPID, PHOS #### [facility] [address] [place] [address] Dr. Karla Lagos Urea nitrogen/Creatinine [Mass ratio] 16.8 mg/mg Normal [facility] Comment on above: Performed By: #### M G, CMP, URIC, DBIL, LIPID, PHOS #### [facility] [address] [place] [address] Dr. Karla Lagos URIC ACID SERUMon 05-03-2022 Urate [Mass/Vol] 5.5 mg/dL Normal 3.5-7.2 [facility] Comment on above: Performed By: #### M G, CMP, URIC, DBIL, LIPID, PHOS #### [facility] [address] [place] [address] Dr. Karla Lagos FK506 (TACROLIMUS) WHOLE BLO ODon 04-17-2022 Tacrolimus (FK506), Blood 6.1 ng/mL Normal 2.0-20.[address] [facility] Comment on above: Result Comment: Trou gh (immediately following transplant) 15.0 . Trough (steady state, 2 weeks or more after transplant): 3.0 - 8.0 . Performed by LC-MS/MS technology. Performed By: #### P HOS, URIC, MG, CMP, DBIL, LIPID #### [facility] [address] [place] [address] Dr. Karla Lagos FK506 (TACROLIMUS) WHOLE BLO ODon 03-28-2022 Tacrolimus (FK506), Blood 8.8 ng/mL Normal 2.0-20.[address] [facility] Comment on above: Result Comment: Trou gh (immediately following transplant) 15.0 . Trough (steady state, 2 weeks or more after transplant): 3.0 - 8.0 . Performed by LC-MS/MS technology. Performed By: #### P HOS, URIC, MG, CMP, DBIL, LIPID #### [facility] [address] [place] [address] Dr. Karla Lagos BILIRUBIN CONJUGATED (DIRECT )on 03-25-2022 BILI, CONJUGATED 0.2 mg/dL Normal 0.0-0.[address] [facility] Comment on above: Performed By: #### P HOS, URIC, MG, CMP, DBIL, LIPID #### [facility] [address] [place] [address] Dr. Karla Lagos CBC AUTO DIFFon 03-25-2022 BASO # 0.1 103/ul Normal 0.0-0.1 [facility] Comment on above: Performed By: #### P HOS, URIC, MG, CMP, DBIL, LIPID #### [facility] [address] [place] [address] Dr. Karla Lagos Basophils/100 WBC (Bld) 0.7 % Normal 0.2-2.0 [facility] Comment on above: Performed By: #### P HOS, URIC, MG, CMP, DBIL, LIPID #### [facility] [address] [place] [address] Dr. Karla Lagos EO # 0.1 103/ul Normal 0.0-0.7 [facility] Comment on above: Performed By: #### P HOS, URIC, MG, CMP, DBIL, LIPID #### [facility] [address] [place] [address] Dr. Karla Lagos Eosinophils/100 WBC (Bld) 1.4 % Normal 0.9-7.[address] [facility] Comment on above: Performed By: #### P HOS, URIC, MG, CMP, DBIL, LIPID #### [facility] [address] [place] [address] Dr. Karla Lagos Erythrocyte distribution width (RBC) [Ratio] 13.6 % Normal 11.0-15.[address] [facility] Comment on above: Performed By: #### P HOS, URIC, MG, CMP, DBIL, LIPID #### [facility] [address] [place] [address] Dr. Karla Lagos Hematocrit (Bld) [Volume fraction] 51.5 % Normal 42.0-54.[address] [facility] Comment on above: Performed By: #### P HOS, URIC, MG, CMP, DBIL, LIPID #### [facility] [address] [place] [address] Dr. Karla Lagos Hemoglobin (Bld) [Mass/Vol] 16.8 g/dL Normal 14.0-18.[address] [facility] Comment on above: Performed By: #### P HOS, URIC, MG, CMP, DBIL, LIPID #### [facility] [address] [place] [address] Dr. Karla Lagos IG # 0.06 10e3/ul Critically high 0.00-0.03 [facility] Comment on above: Performed By: #### P HOS, URIC, MG, CMP, DBIL, LIPID #### [facility] [address] [place] [address] Dr. Karla Lagos IG % 0.8 % Critically high 0.0-0.[address] [facility] Comment on above: Performed By: #### P HOS, URIC, MG, CMP, DBIL, LIPID #### [facility] [address] [place] [address] Dr. Karla Lagos LYMPH # 1.1 103/ul Critically low 1.2-3.8 [facility] Comment on above: Performed By: #### P HOS, URIC, MG, CMP, DBIL, LIPID #### [facility] [address] [place] [address] Dr. Karla Lagos Lymphocytes/100 WBC (Bld) 14.8 % Critically low 20.5-60.0 [facility] Comment on above: Performed By: #### P HOS, URIC, MG, CMP, DBIL, LIPID #### [facility] [address] [place] [address] Dr. Karla aLgos MANUAL DIFF REQ NO Normal [facility] Comment on above: Performed By: #### P HOS, URIC, MG, CMP, DBIL, LIPID #### [facility] [address] [place] [address] Dr. Karla Lagos MCH (RBC) [Entitic mass] 30.2 pg Normal 25.9-34.0 [facility] Comment on above: Performed By: #### P HOS, URIC, MG, CMP, DBIL, LIPID #### [facility] [address] [place] [address] Dr. Karla Lagos MCHC (RBC) [Mass/Vol] 32.6 g/dL Normal 29.9-35.2 [facility] Comment on above: Performed By: #### P HOS, URIC, MG, CMP, DBIL, LIPID #### [facility] [address] [place] [address] Dr. Karla Lagos MCV (RBC) [Entitic vol] 92.6 fL Normal 80.0-94.0 [facility] Comment on above: Performed By: #### P HOS, URIC, MG, CMP, DBIL, LIPID #### [facility] [address] [place] [address] Dr. Karla Lagos MONO # 0.7 103/ul Normal 0.3-0.8 [facility] Comment on above: Performed By: #### P HOS, URIC, MG, CMP, DBIL, LIPID #### [facility] [address] [place] [address] Dr. Karla Lagos Monocytes/100 WBC (Bld) 10.0 % Normal 1.7-12.0 [facility] Comment on above: Performed By: #### P HOS, URIC, MG, CMP, DBIL, LIPID #### [facility] [address] [place] [address] Dr. Karla Lagos NEUT # 5.2 103/ul Normal 1.4-6.5 [facility] Comment on above: Performed By: #### P HOS, URIC, MG, CMP, DBIL, LIPID #### [facility] [address] [place] [address] Dr. Karla Lagos Neutrophils/100 WBC (Bld) 72.3 % Normal 43.0-75.0 [facility] Comment on above: Performed By: #### P HOS, URIC, MG, CMP, DBIL, LIPID #### [facility] [address] [place] [address] Dr. Karla Lagos Platelet mean volume (Bld) [Entitic vol] 10.4 fL Normal 9.5-13.5 [facility] Comment on above: Performed By: #### P HOS, URIC, MG, CMP, DBIL, LIPID #### [facility] [address] [place] [address] Dr. Karla Lagos PLT 245 103/ul Normal 150-450 [facility] Comment on above: Performed By: #### P HOS, URIC, MG, CMP, DBIL, LIPID #### [facility] [address] [place] [address] Dr. Karla Lagos RBC 5.56 106/ul Normal 4.70-6.10 [facility] Comment on above: Performed By: #### P HOS, URIC, MG, CMP, DBIL, LIPID #### [facility] [address] [place] [address] Dr. Karla Lagos WBC 7.2 103/ul Normal 4.0-11.0 [facility] Comment on above: Performed By: #### P HOS, URIC, MG, CMP, DBIL, LIPID #### [facility] [address] [place] [address] Dr. Karla Lagos LIPID PROFILEon 03-25-2022 CHOL-HDL RATIO NORM SEE BELOW Normal [facility] Comment on above: Result Comment: 3.3 - 4.4 LOW RISK 4.4 - 7.1 AVERAGE RISK 7.1 - 11.0 MODERATE RISK >11.0 HIGH RISK Performed By: #### P HOS, URIC, MG, CMP, DBIL, LIPID #### [facility] [address] [address] [address] Karla Lagos Cholesterol [Mass/Vol] 124 mg/dL Normal <=[address] [facility] Comment on above: Performed By: #### P HOS, URIC, MG, CMP, DBIL, LIPID #### [facility] [address] [address] [address] Karla Lagos Cholesterol in HDL [Mass/Vol] 47 mg/dL Normal 40-[address] [facility] Comment on above: Performed By: #### P HOS, URIC, MG, CMP, DBIL, LIPID #### [facility] [address] [place] [address] Dr. Karla Lagos Cholesterol in LDL [Mass/Vol] 47.4 mg/dL Normal [facility] Comment on above: Performed By: #### P HOS, URIC, MG, CMP, DBIL, LIPID #### [facility] [address] [address] [address] Karla Lagos Cholesterol.total/Ch olesterol in HDL [Mass ratio] 2.6 {ratio} Normal [facility] Comment on above: Performed By: #### P HOS, URIC, MG, CMP, DBIL, LIPID #### [facility] [address] [address] [address] Karla Lagos HDL NORMAL > or = 60 mg/dl - LO W CARDIOVASCULAR RISK <40 mg/dl - HIGH CARDIOVASCULAR RISK Normal [facility] Comment on above: Performed By: #### P HOS, URIC, MG, CMP, DBIL, LIPID #### [facility] [address] [address] [address] Karla Lagos LDL CALC NORMAL SEE BELOW Normal [facility] Comment on above: Result Comment: <100 mg/dl OPTIMAL 100 - 129 mg/dl NEAR OR ABOVE OPTIMAL 130 - 159 mg/dl BORDERLINE HIGH 160 - 189 mg/dl HIGH >190 mg/dl VERY HIGH Performed By: #### P HOS, URIC, MG, CMP, DBIL, LIPID #### [facility] [address] [address] [address] Karla Lagos Triglyceride [Mass/Vol] 148 mg/dL Normal <=[address] [facility] Comment on above: Performed By: #### P HOS, URIC, MG, CMP, DBIL, LIPID #### [facility] [address] [place] [address] Dr. Karla Lagos VLDL CALC 29.6 mg/dL Normal [facility] Comment on above: Performed By: #### P HOS, URIC, MG, CMP, DBIL, LIPID #### [facility] [address] [place] [address] Dr. Karla Lagos MAGNESIUMon 03-25-2022 Magnesium [Mass/Vol] 1.5 mg/dL Critically low 1.8-2.[address] [facility] Comment on above: Performed By: #### P HOS, URIC, MG, CMP, DBIL, LIPID #### [facility] [address] [place] [address] Dr. Karla Lagos PHOSPHORUSon 03-25-2022 Phosphate [Mass/Vol] 3.8 mg/dL Normal 2.6-4.[address] [facility] Comment on above: Performed By: #### P HOS, URIC, MG, CMP, DBIL, LIPID #### [facility] [address] [place] [address] Dr. Karla Lagos PROF 14(COMP METB)on 022 Albumin [Mass/Vol] 4.1 g/dL Normal 3.4-5.[address] [facility] Comment on above: Performed By: #### P HOS, URIC, MG, CMP, DBIL, LIPID #### [facility] [address] [place] [address] Dr. Karla Lagos Albumin/Globulin [Mass ratio] 1.3 {ratio} Normal [facility] Comment on above: Performed By: #### P HOS, URIC, MG, CMP, DBIL, LIPID #### [facility] [address] [place] [address] Dr. Karla Lagos ALP [Catalytic activity/Vol] 76 U/L Normal 46-116 [facility] Comment on above: Performed By: #### P HOS, URIC, MG, CMP, DBIL, LIPID #### [facility] [address] [address] [address] Karla Lagos ALT [Catalytic activity/Vol] 36 U/L Normal 16-[address] [facility] Comment on above: Performed By: #### P HOS, URIC, MG, CMP, DBIL, LIPID #### [facility] [address] [place] [address] Dr. Karla Lagos Anion gap [Moles/Vol] 12.4 mmol/L Normal [facility] Comment on above: Performed By: #### P HOS, URIC, MG, CMP, DBIL, LIPID #### [facility] [address] [place] [address] Dr. Karla Lagos AST [Catalytic activity/Vol] 21 U/L Normal 15-[address] [facility] Comment on above: Performed By: #### P HOS, URIC, MG, CMP, DBIL, LIPID #### [facility] [address] [place] [address] Dr. Karla Lagos Bilirubin [Mass/Vol] 0.6 mg/dL Normal 0.2-1.[address] [facility] Comment on above: Performed By: #### P HOS, URIC, MG, CMP, DBIL, LIPID #### [facility] [address] [place] [address] Dr. Karla Lagos Calcium [Mass/Vol] 9.4 mg/dL Normal 8.5-10.1 [facility] Comment on above: Performed By: #### P HOS, URIC, MG, CMP, DBIL, LIPID #### [facility] [address] [address] [address] Karla Lagos Chloride [Moles/Vol] 103 mmol/L Normal 98-107 [facility] Comment on above: Performed By: #### P HOS, URIC, MG, CMP, DBIL, LIPID #### [facility] [address] [place] [address] Dr. Karla Lagos CO2 [Moles/Vol] 30.6 mmol/L Normal 21.0-32.[address] [facility] Comment on above: Performed By: #### P HOS, URIC, MG, CMP, DBIL, LIPID #### [facility] [address] [address] [address] Karla Lagos Creatinine [Mass/Vol] 1.34 mg/dL Critically high 0.70-1.[address] [facility] Comment on above: Performed By: #### P HOS, URIC, MG, CMP, DBIL, LIPID #### [facility] [address] [address] [address] Karla Lagos EGFR-AF SAO TOMEAN >60 Normal >=[address] [facility] Comment on above: Performed By: #### P HOS, URIC, MG, CMP, DBIL, LIPID #### [facility] [address] [place] [address] Dr. Karla Lagos EGFR-NON AF SAO TOMEAN 54 mL/min/1.73m2 Critically low >=[address] [facility] Comment on above: Performed By: #### P HOS, URIC, MG, CMP, DBIL, LIPID #### [facility] [address] [place] [address] Dr. Karla Lagos Globulin (S) [Mass/Vol] 3.2 g/dL Normal [facility] Comment on above: Performed By: #### P HOS, URIC, MG, CMP, DBIL, LIPID #### [facility] [address] [address] [address] Karla Lagos Glucose [Mass/Vol] 125 mg/dL Critically high 74-106 [facility] Comment on above: Performed By: #### P HOS, URIC, MG, CMP, DBIL, LIPID #### [facility] [address] [address] [address] Karla Lagos Potassium [Moles/Vol] 5.0 mmol/L Normal 3.5-5.[address] [facility] Comment on above: Performed By: #### P HOS, URIC, MG, CMP, DBIL, LIPID #### [facility] [address] [place] [address] Dr. Karla Lagos Protein [Mass/Vol] 7.3 g/dL Normal 6.4-8.[address] [facility] Comment on above: Performed By: #### P HOS, URIC, MG, CMP, DBIL, LIPID #### [facility] [address] [place] [address] Dr. Karla Lagos Sodium [Moles/Vol] 141 mmol/L Normal 136-145 [facility] Comment on above: Performed By: #### P HOS, URIC, MG, CMP, DBIL, LIPID #### [facility] [address] [place] [address] Dr. Karla Lgaos Urea nitrogen [Mass/Vol] 24.0 mg/dL Critically high 7.0-18.0 [facility] Comment on above: Performed By: #### P HOS, URIC, MG, CMP, DBIL, LIPID #### [facility] [address] [place] [address] Dr. Karla Lagos Urea nitrogen/Creatinine [Mass ratio] 17.9 mg/mg Normal [facility] Comment on above: Performed By: #### P HOS, URIC, MG, CMP, DBIL, LIPID #### [facility] [address] [place] [address] Dr. Karla Lagos URIC ACID SERUMon 03-25-2022 Urate [Mass/Vol] 5.0 mg/dL Normal 3.5-7.[address] [facility] Comment on above: Performed By: #### P HOS, URIC, MG, CMP, DBIL, LIPID #### [facility] [address] [place] [address] Dr. Karla Lagos FK506 (TACROLIMUS) WHOLE BLO ODon 02-27-2022 Tacrolimus (FK506), Blood 8.0 ng/mL Normal 2.0-20.[address] [facility] Comment on above: Result Comment: Trou gh (immediately following transplant) 15.0 . Trough (steady state, 2 weeks or more after transplant): 3.0 - 8.0 . Performed by LC-MS/MS technology. Performed By: #### P HOS, URIC, MG, CMP, DBIL, LIPID #### [facility] [address] [place] [address] Dr. Karla Lagos BK VIRUS PCR QUANTon 022 BKV DNA QUANT PCR PLASMA Negative Normal Negative [facility] Comment on above: Result Comment: No B K DNA detected. . The linear range of the assay is 22 - 100,000,000 IU/mL. Performed By: #### P HOS, URIC, MG, CMP, DBIL, LIPID #### [facility] [address] [place] [address] Dr. Karla Lagos Log10 BKV DNA Plasma Normal [facility] Comment on above: Performed By: #### P HOS, URIC, MG, CMP, DBIL, LIPID #### [facility] [address] [place] [address] Dr. Karla Lagos BILIRUBIN CONJUGATED (DIRECT )on 02-24-2022 BILI, CONJUGATED 0.2 mg/dL Normal 0.0-0.[address] [facility] Comment on above: Performed By: #### P HOS, URIC, MG, CMP, DBIL, LIPID #### [facility] [address] [place] [address] Dr. Karla Lagos CBC AUTO DIFFon 02-24-2022 BASO # 0.1 103/ul Normal 0.0-0.[address] [facility] Comment on above: Performed By: #### P HOS, URIC, MG, CMP, DBIL, LIPID #### [facility] [address] [place] [address] Dr. Karla Lagos Basophils/100 WBC (Bld) 0.8 % Normal 0.2-2.0 [facility] Comment on above: Performed By: #### P HOS, URIC, MG, CMP, DBIL, LIPID #### [facility] [address] [place] [address] Dr. Karla Lagos EO # 0.1 103/ul Normal 0.0-0.7 [facility] Comment on above: Performed By: #### P HOS, URIC, MG, CMP, DBIL, LIPID #### [facility] [address] [place] [address] Dr. Karla Lagos Eosinophils/100 WBC (Bld) 1.7 % Normal 0.9-7.[address] [facility] Comment on above: Performed By: #### P HOS, URIC, MG, CMP, DBIL, LIPID #### [facility] [address] [place] [address] Dr. Karla Lagos Erythrocyte distribution width (RBC) [Ratio] 14.1 % Normal 11.0-15.[address] [facility] Comment on above: Performed By: #### P HOS, URIC, MG, CMP, DBIL, LIPID #### [facility] [address] [place] [address] Dr. Karla Lagos Hematocrit (Bld) [Volume fraction] 48.1 % Normal 42.0-54.[address] [facility] Comment on above: Performed By: #### P HOS, URIC, MG, CMP, DBIL, LIPID #### [facility] [address] [place] [address] Dr. Karla Lagos Hemoglobin (Bld) [Mass/Vol] 16.0 g/dL Normal 14.0-18.[address] [facility] Comment on above: Performed By: #### P HOS, URIC, MG, CMP, DBIL, LIPID #### [facility] [address] [place] [address] Dr. Karla Lagos IG # 0.03 10e3/ul Normal 0.00-0.[address] [facility] Comment on above: Performed By: #### P HOS, URIC, MG, CMP, DBIL, LIPID #### [facility] [address] [place] [address] Dr. Karla Lagos IG % 0.5 % Normal 0.0-0.[address] [facility] Comment on above: Performed By: #### P HOS, URIC, MG, CMP, DBIL, LIPID #### [facility] [address] [place] [address] Dr. Karla Lagos LYMPH # 1.0 103/ul Critically low 1.2-3.8 [facility] Comment on above: Performed By: #### P HOS, URIC, MG, CMP, DBIL, LIPID #### [facility] [address] [place] [address] Dr. Karla Lagos Lymphocytes/100 WBC (Bld) 16.9 % Critically low 20.5-60.0 [facility] Comment on above: Performed By: #### P HOS, URIC, MG, CMP, DBIL, LIPID #### [facility] [address] [place] [address] Dr. Karla Lagos MANUAL DIFF REQ NO Normal [facility] Comment on above: Performed By: #### P HOS, URIC, MG, CMP, DBIL, LIPID #### [facility] [address] [place] [address] Dr. Karla Lagos MCH (RBC) [Entitic mass] 31.1 pg Normal 25.9-34.0 [facility] Comment on above: Performed By: #### P HOS, URIC, MG, CMP, DBIL, LIPID #### [facility] [address] [place] [address] Dr. Karla Lagos MCHC (RBC) [Mass/Vol] 33.3 g/dL Normal 29.9-35.2 [facility] Comment on above: Performed By: #### P HOS, URIC, MG, CMP, DBIL, LIPID #### [facility] [address] [place] [address] Dr. Karla Lagos MCV (RBC) [Entitic vol] 93.6 fL Normal 80.0-94.0 [facility] Comment on above: Performed By: #### P HOS, URIC, MG, CMP, DBIL, LIPID #### [facility] [address] [place] [address] Dr. Karla Lagos MONO # 0.6 103/ul Normal 0.3-0.8 [facility] Comment on above: Performed By: #### P HOS, URIC, MG, CMP, DBIL, LIPID #### [facility] [address] [place] [address] Dr. Karla Lagos Monocytes/100 WBC (Bld) 10.1 % Normal 1.7-12.0 [facility] Comment on above: Performed By: #### P HOS, URIC, MG, CMP, DBIL, LIPID #### [facility] [address] [place] [address] Dr. Karla Lagos NEUT # 4.2 103/ul Normal 1.4-6.5 [facility] Comment on above: Performed By: #### P HOS, URIC, MG, CMP, DBIL, LIPID #### [facility] [address] [place] [address] Dr. Karla Lagos Neutrophils/100 WBC (Bld) 70.0 % Normal 43.0-75.0 [facility] Comment on above: Performed By: #### P HOS, URIC, MG, CMP, DBIL, LIPID #### [facility] [address] [address] [address] Karla Lagos Platelet mean volume (Bld) [Entitic vol] 10.2 fL Normal 9.5-13.5 [facility] Comment on above: Performed By: #### P HOS, URIC, MG, CMP, DBIL, LIPID #### [facility] [address] [place] [address] Dr. Karla Lagos PLT 226 103/ul Normal 150-450 [facility] Comment on above: Performed By: #### P HOS, URIC, MG, CMP, DBIL, LIPID #### [facility] [address] [place] [address] Dr. Karla Lagos RBC 5.14 106/ul Normal 4.70-6.10 [facility] Comment on above: Performed By: #### P HOS, URIC, MG, CMP, DBIL, LIPID #### [facility] [address] [place] [address] Dr. Karla Lagos WBC 6.0 103/ul Normal 4.0-11.0 [facility] Comment on above: Performed By: #### P HOS, URIC, MG, CMP, DBIL, LIPID #### [facility] [address] [place] [address] Dr. Karla Lagos LIPID PROFILEon 02-24-2022 CHOL-HDL RATIO NORM SEE BELOW Normal [facility] Comment on above: Result Comment: 3.3 - 4.4 LOW RISK 4.4 - 7.1 AVERAGE RISK 7.1 - 11.0 MODERATE RISK >11.0 HIGH RISK Performed By: #### P HOS, URIC, MG, CMP, DBIL, LIPID #### [facility] [address] [address] [address] Karla Lagos Cholesterol [Mass/Vol] 132 mg/dL Normal <=200 [facility] Comment on above: Performed By: #### P HOS, URIC, MG, CMP, DBIL, LIPID #### [facility] [address] [address] [address] Karla Lagos Cholesterol in HDL [Mass/Vol] 50 mg/dL Normal 40-60 [facility] Comment on above: Performed By: #### P HOS, URIC, MG, CMP, DBIL, LIPID #### [facility] [address] [address] [address] Karla Lagos Cholesterol in LDL [Mass/Vol] 54.6 mg/dL Normal [facility] Comment on above: Performed By: #### P HOS, URIC, MG, CMP, DBIL, LIPID #### [facility] [address] [address] [address] aKrla Lagos Cholesterol.total/Ch olesterol in HDL [Mass ratio] 2.6 {ratio} Normal [facility] Comment on above: Performed By: #### P HOS, URIC, MG, CMP, DBIL, LIPID #### [facility] [address] [address] [address] Karla Lagos HDL NORMAL > or = 60 mg/dl - LO W CARDIOVASCULAR RISK <40 mg/dl - HIGH CARDIOVASCULAR RISK Normal [facility] Comment on above: Performed By: #### P HOS, URIC, MG, CMP, DBIL, LIPID #### [facility] [address] [address] [address] Karla Lagos LDL CALC NORMAL SEE BELOW Normal [facility] Comment on above: Result Comment: <100 mg/dl OPTIMAL 100 - 129 mg/dl NEAR OR ABOVE OPTIMAL 130 - 159 mg/dl BORDERLINE HIGH 160 - 189 mg/dl HIGH >190 mg/dl VERY HIGH Performed By: #### P HOS, URIC, MG, CMP, DBIL, LIPID #### [facility] [address] [address] [address] Karla Lagos Triglyceride [Mass/Vol] 137 mg/dL Normal <=150 [facility] Comment on above: Performed By: #### P HOS, URIC, MG, CMP, DBIL, LIPID #### [facility] [address] [address] [address] Karla Lagos VLDL CALC 27.4 mg/dL Normal [facility] Comment on above: Performed By: #### P HOS, URIC, MG, CMP, DBIL, LIPID #### [facility] [address] [address] [address] Karla Lagos MAGNESIUMon 02-24-2022 Magnesium [Mass/Vol] 1.5 mg/dL Critically low 1.8-2.4 [facility] Comment on above: Performed By: #### P HOS, URIC, MG, CMP, DBIL, LIPID #### [facility] [address] [place] [address] Dr. Karla Lagos PHOSPHORUSon 02-24-2022 Phosphate [Mass/Vol] 3.2 mg/dL Normal 2.6-4.7 [facility] Comment on above: Performed By: #### P HOS, URIC, MG, CMP, DBIL, LIPID #### [facility] [address] [place] [address] Dr. Karla Lagos PROF 14(COMP METB)on 022 Albumin [Mass/Vol] 4.1 g/dL Normal 3.4-5.[address] [facility] Comment on above: Performed By: #### P HOS, URIC, MG, CMP, DBIL, LIPID #### [facility] [address] [place] [address] Dr. Karla Lagos Albumin/Globulin [Mass ratio] 1.4 {ratio} Normal [facility] Comment on above: Performed By: #### P HOS, URIC, MG, CMP, DBIL, LIPID #### [facility] [address] [place] [address] Dr. Karla Lagos ALP [Catalytic activity/Vol] 73 U/L Normal 46-116 [facility] Comment on above: Performed By: #### P HOS, URIC, MG, CMP, DBIL, LIPID #### [facility] [address] [place] [address] Dr. Karla Lagos ALT [Catalytic activity/Vol] 27 U/L Normal 16-63 [facility] Comment on above: Performed By: #### P HOS, URIC, MG, CMP, DBIL, LIPID #### [facility] [address] [place] [address] Dr. Karla Lagos Anion gap [Moles/Vol] 11.7 mmol/L Normal [facility] Comment on above: Performed By: #### P HOS, URIC, MG, CMP, DBIL, LIPID #### [facility] [address] [place] [address] Dr. Karla Lagos AST [Catalytic activity/Vol] 16 U/L Normal 15-[address] [facility] Comment on above: Performed By: #### P HOS, URIC, MG, CMP, DBIL, LIPID #### [facility] [address] [place] [address] Dr. Karla Lagos Bilirubin [Mass/Vol] 0.8 mg/dL Normal 0.2-1.[address] [facility] Comment on above: Performed By: #### P HOS, URIC, MG, CMP, DBIL, LIPID #### [facility] [address] [place] [address] Dr. Karla Lagos Calcium [Mass/Vol] 9.1 mg/dL Normal 8.5-10.[address] [facility] Comment on above: Performed By: #### P HOS, URIC, MG, CMP, DBIL, LIPID #### [facility] [address] [place] [address] Dr. Karla Lagos Chloride [Moles/Vol] 104 mmol/L Normal 98-107 [facility] Comment on above: Performed By: #### P HOS, URIC, MG, CMP, DBIL, LIPID #### [facility] [address] [place] [address] Dr. Karla Lagos CO2 [Moles/Vol] 29.4 mmol/L Normal 21.0-32.[address] [facility] Comment on above: Performed By: #### P HOS, URIC, MG, CMP, DBIL, LIPID #### [facility] [address] [place] [address] Dr. Karla Lagos Creatinine [Mass/Vol] 1.27 mg/dL Normal 0.70-1.[address] [facility] Comment on above: Performed By: #### P HOS, URIC, MG, CMP, DBIL, LIPID #### [facility] [address] [place] [address] Dr. Karla Lagos EGFR-AF SAO TOMEAN >60 Normal >=[address] [facility] Comment on above: Performed By: #### P HOS, URIC, MG, CMP, DBIL, LIPID #### [facility] [address] [place] [address] Dr. Karla Lagos EGFR-NON AF SAO TOMEAN 58 mL/min/1.73m2 Critically low >=[address] [facility] Comment on above: Performed By: #### P HOS, URIC, MG, CMP, DBIL, LIPID #### [facility] [address] [place] [address] Dr. Karla Lagos Globulin (S) [Mass/Vol] 2.9 g/dL Normal [facility] Comment on above: Performed By: #### P HOS, URIC, MG, CMP, DBIL, LIPID #### [facility] [address] [place] [address] Dr. Karla Lagos Glucose [Mass/Vol] 113 mg/dL Critically high 74-106 T [facility] Comment on above: Performed By: #### P HOS, URIC, MG, CMP, DBIL, LIPID #### [facility] [address] [place] [address] Dr. Karla Lagos Potassium [Moles/Vol] 4.1 mmol/L Normal 3.5-5.[address] [facility] Comment on above: Performed By: #### P HOS, URIC, MG, CMP, DBIL, LIPID #### [facility] [address] [place] [address] Dr. Karla Lagos Protein [Mass/Vol] 7.0 g/dL Normal 6.4-8.[address] [facility] Comment on above: Performed By: #### P HOS, URIC, MG, CMP, DBIL, LIPID #### [facility] [address] [place] [address] Dr. Karla Lagos Sodium [Moles/Vol] 141 mmol/L Normal 136-[address] [facility] Comment on above: Performed By: #### P HOS, URIC, MG, CMP, DBIL, LIPID #### [facility] [address] [address] [address] Karla Lagos Urea nitrogen [Mass/Vol] 18.0 mg/dL Normal 7.0-18.[address] [facility] Comment on above: Performed By: #### P HOS, URIC, MG, CMP, DBIL, LIPID #### [facility] [address] [address] [address] Karla Lagos Urea nitrogen/Creatinine [Mass ratio] 14.2 mg/mg Normal [facility] Comment on above: Performed By: #### P HOS, URIC, MG, CMP, DBIL, LIPID #### [facility] [address] [address] [address] Karla Lagos URIC ACID SERUMon 02-24-2022 Urate [Mass/Vol] 6.0 mg/dL Normal 3.5-7.[address] [facility] Comment on above: Performed By: #### P HOS, URIC, MG, CMP, DBIL, LIPID #### [facility] [id number] Karla Lagos XR Chest 2 Views*on 01-14-20 22 XR Chest 2 Views* FINDINGS: Comparison made with prior examination of September 24, 2020. Improved aeration with no persistent parenchymal consolidation. No pleural or pericardial effusions. Normal cardiac silhouette size. Sternotomy wires. Left central cardiac pacemaker. IMPRESSION: 1. Minimal residual post-inflammatory sequela. Report reported and signed by Anjum Remy on 01/13/2022 1143 Normal [facility] ECHOCARDIO M/2D COMPLETEon 0 09-28-2021 ECHOCARDIO M/2D COMPLETE Patient: VISHAL DUKEJessica Exam Date: 09/28/2021 : 1960 Gender:M Ordering : DR FEDERICO CHESTER M.D. Admission #: [id number] Family : DR ROSA M GONZALES M.D. Order #: [id number] CLICK HERE TO VIEW EXAM ECHOCARDIOGRAM REPORT [...] Area(A4C): 20.50 cm2 Left Atrium Systolic Volume(A2C): 63273 mm3 Left Atrium Systolic Volume(A4C): 00268 mm3 Mitral Valve MV E to A [...] Frazier M.D. on 09/28/2021 at 19:[address] [facility] Bilirubin, Directon 09-28-19 22 DBIL <0.2 Normal [facility] Comment on above: Result Comment: Refe rence range change 03/03/2017. Prior reference range 0.1-0.3 mg/dL. Performed By: #### C BCAD, MG, URIC, LIPD, PHOS, CMP, DBIL #### [facility] [address], [place] [id number] Complete Blood Count with Au to Diffon 09-27-2021 Basophils (Bld) [#/Vol] 0.06 10*3/uL Normal 0.00-0.20 [facility] Comment on above: Performed By: #### C BCAD, MG, URIC, LIPD, PHOS, CMP, DBIL #### [facility] [address], [place] [id number] Basophils/100 WBC (Bld) 1.0 % Normal [facility] Comment on above: Performed By: #### C BCAD, MG, URIC, LIPD, PHOS, CMP, DBIL #### [facility] [address] [place], [place] [id number] Eosinophils (Bld) [#/Vol] 0.09 10*3/uL Normal 0.02-0.50 [facility] Comment on above: Performed By: #### C BCAD, MG, URIC, LIPD, PHOS, CMP, DBIL #### [facility] [address], [place] [id number] Eosinophils/100 WBC (Bld) 1.5 % Normal [facility] Comment on above: Performed By: #### C BCAD, MG, URIC, LIPD, PHOS, CMP, DBIL #### [facility] [address], [place] [id number] Erythrocyte distribution width (RBC) [Ratio] 14.1 % Normal 11.0-15.0 [facility] Comment on above: Performed By: #### C BCAD, MG, URIC, LIPD, PHOS, CMP, DBIL #### [facility] [address], [place] [id number] Hematocrit (Bld) [Volume fraction] 51.6 % High 38.5-50.0 [facility] Comment on above: Performed By: #### C BCAD, MG, URIC, LIPD, PHOS, CMP, DBIL #### [facility] [address], [place] [id number] Hemoglobin (Bld) [Mass/Vol] 16.5 g/dL Normal 13.0-17.1 [facility] Comment on above: Performed By: #### C BCAD, MG, URIC, LIPD, PHOS, CMP, DBIL #### [facility] [address], [place] [id number] Lymphocytes (Bld) [#/Vol] 1.0 10*3/uL Normal 0.9-3.9 [facility] Comment on above: Performed By: #### C BCAD, MG, URIC, LIPD, PHOS, CMP, DBIL #### [facility] [address], [place] [id number] Lymphocytes/100 WBC (Bld) 16.3 % Normal [facility] Comment on above: Performed By: #### C BCAD, MG, URIC, LIPD, PHOS, CMP, DBIL #### [facility] [address], [place] [id number] MCH (RBC) [Entitic mass] 29.9 pg Normal 27.0-33.0 [facility] Comment on above: Performed By: #### C BCAD, MG, URIC, LIPD, PHOS, CMP, DBIL #### [facility] [address], [place] [id number] MCHC (RBC) [Mass/Vol] 32.0 g/dL Normal 32.0-36.0 [facility] Comment on above: Performed By: #### C BCAD, MG, URIC, LIPD, PHOS, CMP, DBIL #### [facility] [address], [place] [id number] MCV (RBC) [Entitic vol] 94 fL Normal 80-100 [facility] Comment on above: Performed By: #### C BCAD, MG, URIC, LIPD, PHOS, CMP, DBIL #### [facility] [address], [place] [id number] Monocytes (Bld) [#/Vol] 0.7 10*3/uL Normal 0.2-0.9 [facility] Comment on above: Performed By: #### C BCAD, MG, URIC, LIPD, PHOS, CMP, DBIL #### [facility] [address], [place] [id number] Monocytes/100 WBC (Bld) 11.1 % Normal [facility] Comment on above: Performed By: #### C BCAD, MG, URIC, LIPD, PHOS, CMP, DBIL #### [facility] [address], [place] [id number] Neutrophils (Bld) [#/Vol] 4.2 10*3/uL Normal 1.5-7.8 [facility] Comment on above: Performed By: #### C BCAD, MG, URIC, LIPD, PHOS, CMP, DBIL #### [facility] [address], [place] [id number] Neutrophils/100 WBC (Bld) 69.8 % Normal [facility] Comment on above: Performed By: #### C BCAD, MG, URIC, LIPD, PHOS, CMP, DBIL #### [facility] [address], [place] [id number] Platelet mean volume (Bld) [Entitic vol] 10.80 fL Normal 7.50-12.50 [facility] Comment on above: Performed By: #### C BCAD, MG, URIC, LIPD, PHOS, CMP, DBIL #### [facility] [address], [place] [id number] Platelets (Bld) [#/Vol] 247 10*3/uL Normal 140-400 [facility] Comment on above: Performed By: #### C BCAD, MG, URIC, LIPD, PHOS, CMP, DBIL #### [facility] [address], [place] [id number] RBC (Bld) [#/Vol] 5.52 10*6/uL Normal 4.20-5.80 [facility] Comment on above: Performed By: #### C BCAD, MG, URIC, LIPD, PHOS, CMP, DBIL #### [facility] [address], [place] [id number] RDW-SD 48.9 fL Normal 37.0-50.0 [facility] Comment on above: Performed By: #### C BCAD, MG, URIC, LIPD, PHOS, CMP, DBIL #### [facility] [address], [place] [id number] WBC (Bld) [#/Vol] 6.0 10*3/uL Normal 3.8-11.0 [facility] [place] [facility] Comment on above: Performed By: #### C BCAD, MG, URIC, LIPD, PHOS, CMP, DBIL #### [facility] [address], [place] [id number] Comprehensive Metabolic Pane [facility] 09-27-2021 Albumin [Mass/Vol] 5.0 g/dL Normal 3.6-5.1 [facility] [place] [facility] Comment on above: Performed By: #### C BCAD, MG, URIC, LIPD, PHOS, CMP, DBIL #### [facility] [address], [place] [id number] Albumin/Globulin [Mass ratio] 2.8 {ratio} High 1.0-2.5 [facility] Comment on above: Performed By: #### C BCAD, MG, URIC, LIPD, PHOS, CMP, DBIL #### [facility] [address], [place] [id number] ALP [Catalytic activity/Vol] 79 U/L Normal 40-129 [facility] Comment on above: Performed By: #### C BCAD, MG, URIC, LIPD, PHOS, CMP, DBIL #### [facility] [address], [place] [id number] ALT [Catalytic activity/Vol] 29 U/L Normal 9-46 [facility] Comment on above: Result Comment: 03/17 Female reference range changed. Performed By: #### C BCAD, MG, URIC, LIPD, PHOS, CMP, DBIL #### [facility] [address], [place] [id number] Anion gap [Moles/Vol] 23 mmol/L High 12-20 [facility] Comment on above: Result Comment: Effe ctive 04/22/2019 reference range changed. Performed By: #### C BCAD, MG, URIC, LIPD, PHOS, CMP, DBIL #### [facility] [address], [place] [id number] AST [Catalytic activity/Vol] 25 U/L Normal 10-40 [facility] Comment on above: Performed By: #### C BCAD, MG, URIC, LIPD, PHOS, CMP, DBIL #### [facility] [address], [place] [id number] Bilirubin [Mass/Vol] 0.66 mg/dL Normal 0.30-1.20 [facility] Comment on above: Performed By: #### C BCAD, MG, URIC, LIPD, PHOS, CMP, DBIL #### [facility] [address], [place] [id number] BUN/CREA 18 Ratio Normal 6-22 [facility] Comment on above: Performed By: #### C BCAD, MG, URIC, LIPD, PHOS, CMP, DBIL #### [facility] [address], [place] [id number] Calcium [Mass/Vol] 10.0 mg/dL Normal 8.6-10.2 [facility] [place] [facility] Comment on above: Performed By: #### C BCAD, MG, URIC, LIPD, PHOS, CMP, DBIL #### [facility] [address], [place] [id number] Chloride [Moles/Vol] 105 mmol/L Normal 98-107 [facility] above: Performed By: #### C BCAD, MG, URIC, LIPD, PHOS, CMP, DBIL #### [facility] [address], [place] [id number] CO2 [Moles/Vol] 20 mmol/L Normal 20-31 [facility] Comment on above: Performed By: #### C BCAD, MG, URIC, LIPD, PHOS, CMP, DBIL #### [facility] [address], [place] [id number] Creatinine [Mass/Vol] 1.2 mg/dL Normal 0.7-1.4 [facility] Comment on above: Performed By: #### C BCAD, MG, URIC, LIPD, PHOS, CMP, DBIL #### [facility] [address], [place] [id number] eGFRAA 72 mL/min/1.73m2 Normal >60 [facility] Comment on above: Performed By: #### C BCAD, MG, URIC, LIPD, PHOS, CMP, DBIL #### [facility] [address], [place] [id number] eGFRNAA 59 mL/min/1.73m2 Low >60 [facility] Comment on above: Performed By: #### C BCAD, MG, URIC, LIPD, PHOS, CMP, DBIL #### [facility] [address], [place] [id number] Globulin (S) [Mass/Vol] 1.8 g/dL Low 1.9-3.7 [facility] Comment on above: Performed By: #### C BCAD, MG, URIC, LIPD, PHOS, CMP, DBIL #### [facility] [address], [place] [id number] Glucose [Mass/Vol] 121 mg/dL High 65-99 [facility] [place] [facility] Comment on above: Result Comment: For FASTING Glucose --- ADA reference ranges: Normal 65-99 mg/dl Prediabetes 100-125 Diabetes >/= 126 Performed By: #### C BCAD, MG, URIC, LIPD, PHOS, CMP, DBIL #### [facility] [address], [place] [id number] Potassium [Moles/Vol] 4.5 mmol/L Normal 3.5-5.5 [facility] Comment on above: Performed By: #### C BCAD, MG, URIC, LIPD, PHOS, CMP, DBIL #### [facility] [address], [place] [id number] Protein [Mass/Vol] 6.8 g/dL Normal 6.1-8.1 [facility] [place] [facility] Comment on above: Performed By: #### C BCAD, MG, URIC, LIPD, PHOS, CMP, DBIL #### [facility] [address], [place] [id number] Sodium [Moles/Vol] 143 mmol/L Normal 135-146 [facility] [place] [facility] Comment on above: Performed By: #### C BCAD, MG, URIC, LIPD, PHOS, CMP, DBIL #### [facility] [address], [place] [id number] Urea nitrogen [Mass/Vol] 23 mg/dL Normal 7-25 [facility] Comment on above: Performed By: #### C BCAD, MG, URIC, LIPD, PHOS, CMP, DBIL #### [facility] [address], [place] [id number] Lipid Panelon 09-27-2021 Cholesterol [Mass/Vol] 131 mg/dL Normal 125-200 [facility] Comment on above: Result Comment: Low risk < 200mg/dL Borderline risk 201-239 mg/dl High risk > or equal to 240 Performed By: #### C BCAD, MG, URIC, LIPD, PHOS, CMP, DBIL #### [facility] [address], [place] [id number] Cholesterol in HDL [Mass/Vol] 43 mg/dL Normal >40 [facility] Comment on above: Result Comment: High Cardiovascular Risk HDL <40 mg/dL Low Cardiovascular Risk HDL > or equal to 60 mg/dl Performed By: #### C BCAD, MG, URIC, LIPD, PHOS, CMP, DBIL #### [facility] [address], [place] [id number] Cholesterol in LDL [Mass/Vol] 52 mg/dL Normal [facility] Comment on above: Result Comment: LDL ATP III CLASSIFICATION LDL less than 100 mg/dl Optimal LDL 100-129 mg/dl Near or above optimal LDL 130-159 Borderline high LDL 160-189 High LDL greater than 189 mg/dl Very High Performed By: #### C BCAD, MG, URIC, LIPD, PHOS, CMP, DBIL #### [facility] [address], [place] [id number] Cholesterol in VLDL [Mass/Vol] 36 mg/dL Normal [facility] Comment on above: Performed By: #### C BCAD, MG, URIC, LIPD, PHOS, CMP, DBIL #### [facility] [address], [place] [id number] Cholesterol.total/Ch olesterol in HDL [Mass ratio] 3 {ratio} Normal [facility] Comment on above: Performed By: #### C BCAD, MG, URIC, LIPD, PHOS, CMP, DBIL #### [facility] [address], [place] [id number] Triglyceride [Mass/Vol] 180 mg/dL High 30-150 [facility] Comment on above: Result Comment: TRIG ATPIII CLASSIFICATIONS TRIG less than 150 mg/dl Normal TRIG 150-199 mg/dl Borderline High TRIG 200-500 mg/dl High TRIG greather than 500 mg/dl Very High Performed By: #### C BCAD, MG, URIC, LIPD, PHOS, CMP, DBIL #### [facility] [address], [place] [id number] Magnesiumon 09-27-2021 Magnesium [Mass/Vol] 1.9 mg/dL Normal 1.5-2.3 [facility] Comment on above: Performed By: #### C BCAD, MG, URIC, LIPD, PHOS, CMP, DBIL #### [facility] [address] [place], [place] [id number] Phosphoruson 09-27-2021 Phosphate [Mass/Vol] 3.6 mg/dL Normal 2.2-4.4 [facility] Comment on above: Performed By: #### C BCAD, MG, URIC, LIPD, PHOS, CMP, DBIL #### [facility] [address], [place] [id number] Uric Acidon 09-27-2021 URIC 6.5 mg/dL Normal 4.0-8.0 [facility] Comment on above: Result Comment: Refe rence range change 03/03/2017. Prior reference range F 2.4-5.7mg/dL. M 3.4-7.0 mg/dL. Performed By: #### C BCAD, MG, URIC, LIPD, PHOS, CMP, DBIL #### [facility] [address], [place] [id number] Bilirubin, Directon 08-25-19 22 DBIL <0.2 Normal [facility] Comment on above: Result Comment: Refe rence range change 03/03/2017. Prior reference range 0.1-0.3 mg/dL. Performed By: #### C BCAD, MG, URIC, LIPD, PHOS, CMP, DBIL #### [facility] [address], [place] [id number] Complete Blood Count with Au to Diffon 08-24-2021 Basophils (Bld) [#/Vol] 0.06 10*3/uL Normal 0.00-0.20 [facility] Comment on above: Performed By: #### C BCAD, MG, URIC, LIPD, PHOS, CMP, DBIL #### [facility] [address], [place] [id number] Basophils/100 WBC (Bld) 1.1 % Normal [facility] Comment on above: Performed By: #### C BCAD, MG, URIC, LIPD, PHOS, CMP, DBIL #### [facility] [address], [place] [id number] Eosinophils (Bld) [#/Vol] 0.10 10*3/uL Normal 0.02-0.50 [facility] Comment on above: Performed By: #### C BCAD, MG, URIC, LIPD, PHOS, CMP, DBIL #### [facility] [address], [place] [id number] Eosinophils/100 WBC (Bld) 1.8 % Normal [facility] Data [facility] Comment on above: Performed By: #### C BCAD, MG, URIC, LIPD, PHOS, CMP, DBIL #### [facility] [address], [place] [id number] Erythrocyte distribution width (RBC) [Ratio] 14.5 % Normal 11.0-15.0 [facility] Comment on above: Performed By: #### C BCAD, MG, URIC, LIPD, PHOS, CMP, DBIL #### [facility] [address], [place] [id number] Hematocrit (Bld) [Volume fraction] 50.4 % High 38.5-50.0 [facility] Comment on above: Performed By: #### C BCAD, MG, URIC, LIPD, PHOS, CMP, DBIL #### [facility] [address], [place] [id number] Hemoglobin (Bld) [Mass/Vol] 16.4 g/dL Normal 13.0-17.1 [facility] Comment on above: Performed By: #### C BCAD, MG, URIC, LIPD, PHOS, CMP, DBIL #### [facility] [address], [place] [id number] Lymphocytes (Bld) [#/Vol] 0.9 10*3/uL Normal 0.9-3.9 [facility] Comment on above: Performed By: #### C BCAD, MG, URIC, LIPD, PHOS, CMP, DBIL #### [facility] [address], [place] [id number] Lymphocytes/100 WBC (Bld) 15.2 % Normal [facility] Comment on above: Performed By: #### C BCAD, MG, URIC, LIPD, PHOS, CMP, DBIL #### [facility] [address], [place] [id number] MCH (RBC) [Entitic mass] 30.5 pg Normal 27.0-33.0 [facility] Comment on above: Performed By: #### C BCAD, MG, URIC, LIPD, PHOS, CMP, DBIL #### [facility] [address], [place] [id number] MCHC (RBC) [Mass/Vol] 32.5 g/dL Normal 32.0-36.0 [facility] Comment on above: Performed By: #### C BCAD, MG, URIC, LIPD, PHOS, CMP, DBIL #### [facility] [address], [place] [id number] MCV (RBC) [Entitic vol] 94 fL Normal 80-100 [facility] Comment on above: Performed By: #### C BCAD, MG, URIC, LIPD, PHOS, CMP, DBIL #### [facility] [address], [place] [id number] Monocytes (Bld) [#/Vol] 0.7 10*3/uL Normal 0.2-0.9 [facility] Comment on above: Performed By: #### C BCAD, MG, URIC, LIPD, PHOS, CMP, DBIL #### [facility] [address], [place] [id number] Monocytes/100 WBC (Bld) 12.7 % Normal [facility] Comment on above: Performed By: #### C BCAD, MG, URIC, LIPD, PHOS, CMP, DBIL #### [facility] [address], [place] [id number] Neutrophils (Bld) [#/Vol] 3.9 10*3/uL Normal 1.5-7.8 [facility] Comment on above: Performed By: #### C BCAD, MG, URIC, LIPD, PHOS, CMP, DBIL #### [facility] [address], [place] [id number] Neutrophils/100 WBC (Bld) 68.7 % Normal [facility] Comment on above: Performed By: #### C BCAD, MG, URIC, LIPD, PHOS, CMP, DBIL #### [facility] [address], [place] [id number] Platelet mean volume (Bld) [Entitic vol] 11.20 fL Normal 7.50-12.50 [facility] Comment on above: Performed By: #### C BCAD, MG, URIC, LIPD, PHOS, CMP, DBIL #### [facility] [address], [place] [id number] Platelets (Bld) [#/Vol] 230 10*3/uL Normal 140-400 [facility] Data [facility] Comment on above: Performed By: #### C BCAD, MG, URIC, LIPD, PHOS, CMP, DBIL #### [facility] [address], [place] [id number] RBC (Bld) [#/Vol] 5.38 10*6/uL Normal 4.20-5.80 [facility] Comment on above: Performed By: #### C BCAD, MG, URIC, LIPD, PHOS, CMP, DBIL #### [facility] [address], [place] [id number] RDW-SD 49.1 fL Normal 37.0-50.0 [facility] Data [facility] Comment on above: Performed By: #### C BCAD, MG, URIC, LIPD, PHOS, CMP, DBIL #### [facility] [address], [place] [id number] WBC (Bld) [#/Vol] 5.6 10*3/uL Normal 3.8-11.0 [facility] Data Lead Comment on above: Performed By: #### C BCAD, MG, URIC, LIPD, PHOS, CMP, DBIL #### [facility] [address], [place] [id number] Comprehensive Metabolic Pane baldomero 08-24-2021 Albumin [Mass/Vol] 5.0 g/dL Normal 3.6-5.1 [facility] Data Lead Comment on above: Performed By: #### C BCAD, MG, URIC, LIPD, PHOS, CMP, DBIL #### [facility] [address], [place] [id number] Albumin/Globulin [Mass ratio] 2.6 {ratio} High 1.0-2.5 [facility] Comment on above: Performed By: #### C BCAD, MG, URIC, LIPD, PHOS, CMP, DBIL #### [facility] [address], [place] [id number] ALP [Catalytic activity/Vol] 75 U/L Normal 40-129 [facility] Comment on above: Performed By: #### C BCAD, MG, URIC, LIPD, PHOS, CMP, DBIL #### [facility] [address], [place] [id number] ALT [Catalytic activity/Vol] 30 U/L Normal 9-46 [facility] Comment on above: Result Comment: 03/17 Female reference range changed. Performed By: #### C BCAD, MG, URIC, LIPD, PHOS, CMP, DBIL #### [facility] [address], [place] [id number] Anion gap [Moles/Vol] 18 mmol/L Normal 12-20 [facility] Comment on above: Result Comment: Effe ctive 04/22/2019 reference range changed. Performed By: #### C BCAD, MG, URIC, LIPD, PHOS, CMP, DBIL #### [facility] [address], [place] [id number] AST [Catalytic activity/Vol] 26 U/L Normal 10-40 [facility] Comment on above: Performed By: #### C BCAD, MG, URIC, LIPD, PHOS, CMP, DBIL #### [facility] [address], [place] [id number] Bilirubin [Mass/Vol] 0.67 mg/dL Normal 0.30-1.20 [facility] Comment on above: Performed By: #### C BCAD, MG, URIC, LIPD, PHOS, CMP, DBIL #### [facility] [address], [place] [id number] BUN/CREA 19 Ratio Normal 6-22 [facility] Comment on above: Performed By: #### C BCAD, MG, URIC, LIPD, PHOS, CMP, DBIL #### [facility] [address], [place] [id number] Calcium [Mass/Vol] 9.9 mg/dL Normal 8.6-10.2 [facility] Comment on above: Performed By: #### C BCAD, MG, URIC, LIPD, PHOS, CMP, DBIL #### [facility] [address], [place] [id number] Chloride [Moles/Vol] 103 mmol/L Normal 98-107 [facility] Comment on above: Performed By: #### C BCAD, MG, URIC, LIPD, PHOS, CMP, DBIL #### [facility] [address] [place], [place] [id number] CO2 [Moles/Vol] 25 mmol/L Normal 20-31 [facility] Comment on above: Performed By: #### C BCAD, MG, URIC, LIPD, PHOS, CMP, DBIL #### [facility] [address] [place], [place] [id number] Creatinine [Mass/Vol] 1.1 mg/dL Normal 0.7-1.4 [facility] Comment on above: Performed By: #### C BCAD, MG, URIC, LIPD, PHOS, CMP, DBIL #### [facility] [address] [place], [place] [id number] eGFRAA 81 mL/min/1.73m2 Normal >60 [facility] Comment on above: Performed By: #### C BCAD, MG, URIC, LIPD, PHOS, CMP, DBIL #### [facility] [address] [place], [place] [id number] eGFRNAA 67 mL/min/1.73m2 Normal >60 [facility] Comment on above: Performed By: #### C BCAD, MG, URIC, LIPD, PHOS, CMP, DBIL #### [facility] [address] [place], [place] [id number] Globulin (S) [Mass/Vol] 1.9 g/dL Normal 1.9-3.7 [facility] Comment on above: Performed By: #### C BCAD, MG, URIC, LIPD, PHOS, CMP, DBIL #### [facility] [address] [place], [place] [id number] Glucose [Mass/Vol] 125 mg/dL High 65-99 [facility] [place] [facility] Comment on above: Result Comment: For FASTING Glucose --- ADA reference ranges: Normal 65-99 mg/dl Prediabetes 100-125 Diabetes >/= 126 Performed By: #### C BCAD, MG, URIC, LIPD, PHOS, CMP, DBIL #### [facility] [address] [place], [place] [id number] Potassium [Moles/Vol] 4.2 mmol/L Normal 3.5-5.5 [facility] Data Lead Comment on above: Performed By: #### C BCAD, MG, URIC, LIPD, PHOS, CMP, DBIL #### [facility] [address] [place], [place] [id number] Protein [Mass/Vol] 6.9 g/dL Normal 6.1-8.1 [facility] [place] [facility] Comment on above: Performed By: #### C BCAD, MG, URIC, LIPD, PHOS, CMP, DBIL #### [facility] [address] [place], [place] [id number] Sodium [Moles/Vol] 141 mmol/L Normal 135-146 [facility] Data Lead Comment on above: Performed By: #### C BCAD, MG, URIC, LIPD, PHOS, CMP, DBIL #### [facility] [address] [place], [place] [id number] Urea nitrogen [Mass/Vol] 22 mg/dL Normal 7-25 [facility] Data Lead Comment on above: Performed By: #### C BCAD, MG, URIC, LIPD, PHOS, CMP, DBIL #### [facility] [address] [place], [place] [id number] Hemoglobin A1Con 08-24-2021 EAG 134.11 Normal [facility] Data Lead Comment on above: Performed By: #### C BCAD, MG, URIC, LIPD, PHOS, CMP, DBIL #### [facility] [address], [place] [id number] HbA1c (Bld) [Mass fraction] 6.3 % High 4.0-6.0 [facility] Data Lead Comment on above: Performed By: #### C BCAD, MG, URIC, LIPD, PHOS, CMP, DBIL #### [facility] [address], [place] [id number] Lipid Panelon 08-24-2021 Cholesterol [Mass/Vol] 110 mg/dL Low 125-200 [facility] Data Lead Comment on above: Result Comment: Low risk < 200mg/dL Borderline risk 201-239 mg/dl High risk > or equal to 240 Performed By: #### C BCAD, MG, URIC, LIPD, PHOS, CMP, DBIL #### [facility] [address], [place] [id number] Cholesterol in HDL [Mass/Vol] 38 mg/dL Low >40 [facility] Data Lead Comment on above: Result Comment: High Cardiovascular Risk HDL <40 mg/dL Low Cardiovascular Risk HDL > or equal to 60 mg/dl Performed By: #### C BCAD, MG, URIC, LIPD, PHOS, CMP, DBIL #### [facility] [address], [place] [id number] Cholesterol in LDL [Mass/Vol] 46 mg/dL Normal [facility] Data Lead Comment on above: Result Comment: LDL ATP III CLASSIFICATION LDL less than 100 mg/dl Optimal LDL 100-129 mg/dl Near or above optimal LDL 130-159 Borderline high LDL 160-189 High LDL greater than 189 mg/dl Very High Performed By: #### C BCAD, MG, URIC, LIPD, PHOS, CMP, DBIL #### [facility] [address], [place] [id number] Cholesterol in VLDL [Mass/Vol] 26 mg/dL Normal [facility] Data Lead Comment on above: Performed By: #### C BCAD, MG, URIC, LIPD, PHOS, CMP, DBIL #### [facility] [address], [place] [id number] Cholesterol.total/Ch olesterol in HDL [Mass ratio] 3 {ratio} Normal [facility] Data Lead Comment on above: Performed By: #### C BCAD, MG, URIC, LIPD, PHOS, CMP, DBIL #### [facility] [address], [place] [id number] Triglyceride [Mass/Vol] 131 mg/dL Normal 30-150 [facility]ist Comment on above: Result Comment: TRIG ATPIII CLASSIFICATIONS TRIG less than 150 mg/dl Normal TRIG 150-199 mg/dl Borderline High TRIG 200-500 mg/dl High TRIG greather than 500 mg/dl Very High Performed By: #### C BCAD, MG, URIC, LIPD, PHOS, CMP, DBIL #### [facility] [address], [place] [id number] Magnesiumon 08-24-2021 Magnesium [Mass/Vol] 2.0 mg/dL Normal 1.5-2.3 [facility] Comment on above: Performed By: #### C BCAD, MG, URIC, LIPD, PHOS, CMP, DBIL #### [facility] [address], [place] [id number] Phosphoruson 08-24-2021 Phosphate [Mass/Vol] 3.5 mg/dL Normal 2.2-4.4 [facility] Comment on above: Performed By: #### C BCAD, MG, URIC, LIPD, PHOS, CMP, DBIL #### [facility] [address], [place] [id number] Uric Acidon 08-24-2021 URIC 6.6 mg/dL Normal 4.0-8.0 [facility] Comment on above: Result Comment: Refe rence range change 03/03/2017. Prior reference range F 2.4-5.7mg/dL. M 3.4-7.0 mg/dL. Performed By: #### C BCAD, MG, URIC, LIPD, PHOS, CMP, DBIL #### [facility] [address], [place] [id number] Bilirubin, Directon 07-30-19 22 DBIL <0.2 Normal [facility] Comment on above: Result Comment: Refe rence range change 03/03/2017. Prior reference range 0.1-0.3 mg/dL. Performed By: #### C BCAD, MG, URIC, LIPD, PHOS, CMP, DBIL #### [facility] [address], [place] [id number] Complete Blood Count with Au to Diffon 07-29-2021 Basophils (Bld) [#/Vol] 0.07 10*3/uL Normal 0.00-0.20 [facility] Comment on above: Performed By: #### C BCAD, MG, URIC, LIPD, PHOS, CMP, DBIL #### [facility] [address], [place] [id number] Basophils/100 WBC (Bld) 1.1 % Normal [facility] Data Lead Comment on above: Performed By: #### C BCAD, MG, URIC, LIPD, PHOS, CMP, DBIL #### [facility] [address], [place] [id number] Eosinophils (Bld) [#/Vol] 0.15 10*3/uL Normal 0.02-0.50 [facility] Data Lead Comment on above: Performed By: #### C BCAD, MG, URIC, LIPD, PHOS, CMP, DBIL #### [facility] [address], [place] [id number] Eosinophils/100 WBC (Bld) 2.4 % Normal [facility] Data Lead Comment on above: Performed By: #### C BCAD, MG, URIC, LIPD, PHOS, CMP, DBIL #### [facility] [address], [place] [id number] Erythrocyte distribution width (RBC) [Ratio] 14.0 % Normal 11.0-15.0 [facility] Data Lead Comment on above: Performed By: #### C BCAD, MG, URIC, LIPD, PHOS, CMP, DBIL #### [facility] [address], [place] [id number] Hematocrit (Bld) [Volume fraction] 50.3 % High 38.5-50.0 [facility] Data Lead Comment on above: Performed By: #### C BCAD, MG, URIC, LIPD, PHOS, CMP, DBIL #### [facility] [address], [place] [id number] Hemoglobin (Bld) [Mass/Vol] 16.5 g/dL Normal 13.0-17.1 [facility] Data Lead Comment on above: Performed By: #### C BCAD, MG, URIC, LIPD, PHOS, CMP, DBIL #### [facility] [address], [place] [id number] Lymphocytes (Bld) [#/Vol] 0.9 10*3/uL Normal 0.9-3.9 [facility] Comment on above: Performed By: #### C BCAD, MG, URIC, LIPD, PHOS, CMP, DBIL #### [facility] [address], [place] [id number] Lymphocytes/100 WBC (Bld) 13.4 % Normal [facility] Comment on above: Performed By: #### C BCAD, MG, URIC, LIPD, PHOS, CMP, DBIL #### [facility] [address], [place] [id number] MCH (RBC) [Entitic mass] 29.9 pg Normal 27.0-33.0 [facility] Comment on above: Performed By: #### C BCAD, MG, URIC, LIPD, PHOS, CMP, DBIL #### [facility] [address], [place] [id number] MCHC (RBC) [Mass/Vol] 32.8 g/dL Normal 32.0-36.0 [facility] Comment on above: Performed By: #### C BCAD, MG, URIC, LIPD, PHOS, CMP, DBIL #### [facility] [address], [place] [id number] MCV (RBC) [Entitic vol] 91 fL Normal 80-100 [facility] Comment on above: Performed By: #### C BCAD, MG, URIC, LIPD, PHOS, CMP, DBIL #### [facility] [address], [place] [id number] Monocytes (Bld) [#/Vol] 0.5 10*3/uL Normal 0.2-0.9 [facility] Comment on above: Performed By: #### C BCAD, MG, URIC, LIPD, PHOS, CMP, DBIL #### [facility] [address], [place] [id number] Monocytes/100 WBC (Bld) 8.5 % Normal [facility] Comment on above: Performed By: #### C BCAD, MG, URIC, LIPD, PHOS, CMP, DBIL #### [facility] [address], [place] [id number] Neutrophils (Bld) [#/Vol] 4.7 10*3/uL Normal 1.5-7.8 [facility] Comment on above: Performed By: #### C BCAD, MG, URIC, LIPD, PHOS, CMP, DBIL #### [facility] [address], [place] [id number] Neutrophils/100 WBC (Bld) 73.8 % Normal [facility] Comment on above: Performed By: #### C BCAD, MG, URIC, LIPD, PHOS, CMP, DBIL #### [facility] [address], [place] [id number] Platelet mean volume (Bld) [Entitic vol] 10.40 fL Normal 7.50-12.50 [facility] Comment on above: Performed By: #### C BCAD, MG, URIC, LIPD, PHOS, CMP, DBIL #### [facility] [address], [place] [id number] Platelets (Bld) [#/Vol] 266 10*3/uL Normal 140-400 [facility] Comment on above: Performed By: #### C BCAD, MG, URIC, LIPD, PHOS, CMP, DBIL #### [facility] [address], [place] [id number] RBC (Bld) [#/Vol] 5.51 10*6/uL Normal 4.20-5.80 [facility] Specialist Comment on above: Performed By: #### C BCAD, MG, URIC, LIPD, PHOS, CMP, DBIL #### [facility] [address], [place] [id number] RDW-SD 47.4 fL Normal 37.0-50.0 [facility] Comment on above: Performed By: #### C BCAD, MG, URIC, LIPD, PHOS, CMP, DBIL #### [facility] [address], [place] [id number] WBC (Bld) [#/Vol] 6.3 10*3/uL Normal 3.8-11.0 [facility] [place] [facility] Comment on above: Performed By: #### C BCAD, MG, URIC, LIPD, PHOS, CMP, DBIL #### [facility] [address], [place] [id number] Comprehensive Metabolic Pane baldomero 07-29-2021 Albumin [Mass/Vol] 5.0 g/dL Normal 3.6-5.1 [facility] [place] Data Lead Comment on above: Performed By: #### C BCAD, MG, URIC, LIPD, PHOS, CMP, DBIL #### [facility] [address], [place] [id number] Albumin/Globulin [Mass ratio] 2.6 {ratio} High 1.0-2.5 [facility] Data Lead Comment on above: Performed By: #### C BCAD, MG, URIC, LIPD, PHOS, CMP, DBIL #### [facility] [address], [place] [id number] ALP [Catalytic activity/Vol] 73 U/L Normal 40-129 [facility] Data Lead Comment on above: Performed By: #### C BCAD, MG, URIC, LIPD, PHOS, CMP, DBIL #### [facility] [address], [place] [id number] ALT [Catalytic activity/Vol] 27 U/L Normal 9-46 [facility] Data Lead Comment on above: Result Comment: 03/17 Female reference range changed. Performed By: #### C BCAD, MG, URIC, LIPD, PHOS, CMP, DBIL #### [facility] [address], [place] [id number] Anion gap [Moles/Vol] 18 mmol/L Normal 12-20 [facility] Data Lead Comment on above: Result Comment: Effe ctive 04/22/2019 reference range changed. Performed By: #### C BCAD, MG, URIC, LIPD, PHOS, CMP, DBIL #### [facility] [address], [place] [id number] AST [Catalytic activity/Vol] 23 U/L Normal 10-40 [facility] Comment on above: Performed By: #### C BCAD, MG, URIC, LIPD, PHOS, CMP, DBIL #### [facility] [address], [place] [id number] Bilirubin [Mass/Vol] 0.68 mg/dL Normal 0.30-1.20 [facility] Comment on above: Performed By: #### C BCAD, MG, URIC, LIPD, PHOS, CMP, DBIL #### [facility] [address], [place] [id number] BUN/CREA 16 Ratio Normal 6-22 [facility] Comment on above: Performed By: #### C BCAD, MG, URIC, LIPD, PHOS, CMP, DBIL #### [facility] [address], [place] [id number] Calcium [Mass/Vol] 10.0 mg/dL Normal 8.6-10.2 [facility] Comment on above: Performed By: #### C BCAD, MG, URIC, LIPD, PHOS, CMP, DBIL #### [facility] [address], [place] [id number] Chloride [Moles/Vol] 103 mmol/L Normal 98-107 [facility] Comment on above: Performed By: #### C BCAD, MG, URIC, LIPD, PHOS, CMP, DBIL #### [facility] [address], [place] [id number] CO2 [Moles/Vol] 25 mmol/L Normal 20-31 [facility] Specialist Comment on above: Performed By: #### C BCAD, MG, URIC, LIPD, PHOS, CMP, DBIL #### [facility] [address], [place] [id number] Creatinine [Mass/Vol] 1.1 mg/dL Normal 0.7-1.4 [facility] Comment on above: Performed By: #### C BCAD, MG, URIC, LIPD, PHOS, CMP, DBIL #### [facility] [address], [place] [id number] eGFRAA 80 mL/min/1.73m2 Normal >60 [facility] Data Lead Comment on above: Performed By: #### C BCAD, MG, URIC, LIPD, PHOS, CMP, DBIL #### [facility] [address], [place] [id number] eGFRNAA 66 mL/min/1.73m2 Normal >60 [facility] Data Lead Comment on above: Performed By: #### C BCAD, MG, URIC, LIPD, PHOS, CMP, DBIL #### [facility] [address], [place] [id number] Globulin (S) [Mass/Vol] 1.9 g/dL Normal 1.9-3.7 [facility] Data Lead Comment on above: Performed By: #### C BCAD, MG, URIC, LIPD, PHOS, CMP, DBIL #### [facility] [address], [place] [id number] Glucose [Mass/Vol] 109 mg/dL High 65-99 [facility] [place] Data Lead Comment on above: Result Comment: For FASTING Glucose --- ADA reference ranges: Normal 65-99 mg/dl Prediabetes 100-125 Diabetes >/= 126 Performed By: #### C BCAD, MG, URIC, LIPD, PHOS, CMP, DBIL #### [facility] [address], [place] [id number] Potassium [Moles/Vol] 4.7 mmol/L Normal 3.5-5.5 [facility] Data Lead Comment on above: Performed By: #### C BCAD, MG, URIC, LIPD, PHOS, CMP, DBIL #### [facility] [address], [place] [id number] Protein [Mass/Vol] 6.9 g/dL Normal 6.1-8.1 [facility] [place] Data Lead Comment on above: Performed By: #### C BCAD, MG, URIC, LIPD, PHOS, CMP, DBIL #### [facility] [address], [place] [id number] Sodium [Moles/Vol] 141 mmol/L Normal 135-146 [facility] [place] Data Lead Comment on above: Performed By: #### C BCAD, MG, URIC, LIPD, PHOS, CMP, DBIL #### [facility] [address], [place] [id number] Urea nitrogen [Mass/Vol] 18 mg/dL Normal 7-25 [facility] Data Lead Comment on above: Performed By: #### C BCAD, MG, URIC, LIPD, PHOS, CMP, DBIL #### [facility] [address], [place] [id number] Lipid Panelon 07-29-2021 Cholesterol [Mass/Vol] 121 mg/dL Low 125-200 [facility] Data Lead Comment on above: Result Comment: Low risk < 200mg/dL Borderline risk 201-239 mg/dl High risk > or equal to 240 Performed By: #### C BCAD, MG, URIC, LIPD, PHOS, CMP, DBIL #### [facility] [address], [place] [id number] Cholesterol in HDL [Mass/Vol] 41 mg/dL Normal >40 [facility] Data Lead Comment on above: Result Comment: High Cardiovascular Risk HDL <40 mg/dL Low Cardiovascular Risk HDL > or equal to 60 mg/dl Performed By: #### C BCAD, MG, URIC, LIPD, PHOS, CMP, DBIL #### [facility] [address], [place] [id number] Cholesterol in LDL [Mass/Vol] 56 mg/dL Normal [facility] Data Lead Comment on above: Result Comment: LDL ATP III CLASSIFICATION LDL less than 100 mg/dl Optimal LDL 100-129 mg/dl Near or above optimal LDL 130-159 Borderline high LDL 160-189 High LDL greater than 189 mg/dl Very High Performed By: #### C BCAD, MG, URIC, LIPD, PHOS, CMP, DBIL #### [facility] [address], [place] [id number] Cholesterol in VLDL [Mass/Vol] 24 mg/dL Normal [facility] Data Lead Comment on above: Performed By: #### C BCAD, MG, URIC, LIPD, PHOS, CMP, DBIL #### [facility] [address], [place] [id number] Cholesterol.total/Ch olesterol in HDL [Mass ratio] 3 {ratio} Normal [facility] Data Lead Comment on above: Performed By: #### C BCAD, MG, URIC, LIPD, PHOS, CMP, DBIL #### [facility] [address], [place] [id number] Triglyceride [Mass/Vol] 118 mg/dL Normal 30-150 [facility] Specialist Comment on above: Result Comment: TRIG ATPIII CLASSIFICATIONS TRIG less than 150 mg/dl Normal TRIG 150-199 mg/dl Borderline High TRIG 200-500 mg/dl High TRIG greather than 500 mg/dl Very High Performed By: #### C BCAD, MG, URIC, LIPD, PHOS, CMP, DBIL #### [facility] [address], [place] [id number] Magnesiumon 07-29-2021 Magnesium [Mass/Vol] 2.0 mg/dL Normal 1.5-2.3 [facility] Specialist Comment on above: Performed By: #### C BCAD, MG, URIC, LIPD, PHOS, CMP, DBIL #### [facility] [address], [place] [id number] Phosphoruson 07-29-2021 Phosphate [Mass/Vol] 3.3 mg/dL Normal 2.2-4.4 [facility] Comment on above: Performed By: #### C BCAD, MG, URIC, LIPD, PHOS, CMP, DBIL #### [facility] [address], [place] [id number] Q - TACROLIMUSon 07-29-2021 TACROLIMUS, HIGHLY SENSITIVE, LC/MS/MS 6.3 mcg/L Normal [facility] Comment on above: Order Comment: [facility] performed at: QPT, [facility], [address], [address] [place], [address], Netting Weaver: Shaheed Bazzi MDQuest Collection Date/Time: [id number] Results Received Date/Time: [id number] Reported Date/Time: [id number] Result Comment: No d efinitive therapeutic or toxic ranges have been established. Optimal blood drug levels are influenced by type of transplant, patient response, time post- transplant, co-administration of other drugs, and drug formulation. The following trough range is a suggested guideline: 5.0-20.0 mcg/L. This test was developed and its analytical performance characteristics have been determined by [employer]. It has not been cleared or approved by the FDA. This assay has been validated pursuant to the CLIA regulations and is used for clinical purposes. Performed By: #### C BCAD, MG, URIC, LIPD, PHOS, CMP, DBIL #### [facility] [address], [place] [id number] Uric Acidon 07-29-2021 URIC 6.1 mg/dL Normal 4.0-8.0 [facility] Specialist Comment on above: Result Comment: Refe rence range change 03/03/2017. Prior reference range F 2.4-5.7mg/dL. M 3.4-7.0 mg/dL. Performed By: #### C BCAD, MG, URIC, LIPD, PHOS, CMP, DBIL #### [facility] [address], [place] [id number] Bilirubin, Directon 06-29-19 22 DBIL <0.2 Normal [facility] Comment on above: Result Comment: Refe rence range change 03/03/2017. Prior reference range 0.1-0.3 mg/dL. Performed By: #### C BCAD, MG, URIC, LIPD, PHOS, CMP, DBIL #### [facility] [address], [place] [id number] Complete Blood Count with Au to Diffon 06-28-2021 Basophils (Bld) [#/Vol] 0.05 10*3/uL Normal 0.00-0.20 [facility] Specialist Comment on above: Performed By: #### C BCAD, MG, URIC, LIPD, PHOS, CMP, DBIL #### [facility] [address], [place] [id number] Basophils/100 WBC (Bld) 0.8 % Normal [facility] Comment on above: Performed By: #### C BCAD, MG, URIC, LIPD, PHOS, CMP, DBIL #### [facility] [address], [place] [id number] Eosinophils (Bld) [#/Vol] 0.10 10*3/uL Normal 0.02-0.50 [facility] Specialist Comment on above: Performed By: #### C BCAD, MG, URIC, LIPD, PHOS, CMP, DBIL #### [facility] [address], [place] [id number] Eosinophils/100 WBC (Bld) 1.6 % Normal [facility] Specialist Comment on above: Performed By: #### C BCAD, MG, URIC, LIPD, PHOS, CMP, DBIL #### [facility] [address], [place] [id number] Erythrocyte distribution width (RBC) [Ratio] 14.6 % Normal 11.0-15.0 [facility] Specialist Comment on above: Performed By: #### C BCAD, MG, URIC, LIPD, PHOS, CMP, DBIL #### [facility] [address], [place] [id number] Hematocrit (Bld) [Volume fraction] 50.7 % High 38.5-50.0 [facility] Specialist Comment on above: Performed By: #### C BCAD, MG, URIC, LIPD, PHOS, CMP, DBIL #### [facility] [address], [place] [id number] Hemoglobin (Bld) [Mass/Vol] 16.2 g/dL Normal 13.0-17.1 [facility] Data Lead Comment on above: Performed By: #### C BCAD, MG, URIC, LIPD, PHOS, CMP, DBIL #### [facility] [address], [place] [id number] Lymphocytes (Bld) [#/Vol] 1.0 10*3/uL Normal 0.9-3.9 [facility] Specialist Comment on above: Performed By: #### C BCAD, MG, URIC, LIPD, PHOS, CMP, DBIL #### [facility] [address], [place] [id number] Lymphocytes/100 WBC (Bld) 16.2 % Normal [facility] Specialist Comment on above: Performed By: #### C BCAD, MG, URIC, LIPD, PHOS, CMP, DBIL #### [facility] [address], [place] [id number] MCH (RBC) [Entitic mass] 30.0 pg Normal 27.0-33.0 [facility] Specialist Comment on above: Performed By: #### C BCAD, MG, URIC, LIPD, PHOS, CMP, DBIL #### [facility] [address], [place] [id number] MCHC (RBC) [Mass/Vol] 32.0 g/dL Normal 32.0-36.0 [facility] Specialist Comment on above: Performed By: #### C BCAD, MG, URIC, LIPD, PHOS, CMP, DBIL #### [facility] [address], [place] [id number] MCV (RBC) [Entitic vol] 94 fL Normal 80-100 [facility] Data Lead Comment on above: Performed By: #### C BCAD, MG, URIC, LIPD, PHOS, CMP, DBIL #### [facility] [address], [place] [id number] Monocytes (Bld) [#/Vol] 0.9 10*3/uL Normal 0.2-0.9 [facility] Specialist Comment on above: Performed By: #### C BCAD, MG, URIC, LIPD, PHOS, CMP, DBIL #### [facility] [address], [place] [id number] Monocytes/100 WBC (Bld) 13.4 % Normal [facility] Data Lead Comment on above: Performed By: #### C BCAD, MG, URIC, LIPD, PHOS, CMP, DBIL #### [facility] [address], [place] [id number] Neutrophils (Bld) [#/Vol] 4.3 10*3/uL Normal 1.5-7.8 [facility] Data Lead Comment on above: Performed By: #### C BCAD, MG, URIC, LIPD, PHOS, CMP, DBIL #### [facility] [address], [place] [id number] Neutrophils/100 WBC (Bld) 67.7 % Normal [facility] Data Lead Comment on above: Performed By: #### C BCAD, MG, URIC, LIPD, PHOS, CMP, DBIL #### [facility] [address], [place] [id number] Platelet mean volume (Bld) [Entitic vol] 11.00 fL Normal 7.50-12.50 [facility] Data Lead Comment on above: Performed By: #### C BCAD, MG, URIC, LIPD, PHOS, CMP, DBIL #### [facility] [address], [place] [id number] Platelets (Bld) [#/Vol] 239 10*3/uL Normal 140-400 [facility] Data Lead Comment on above: Performed By: #### C BCAD, MG, URIC, LIPD, PHOS, CMP, DBIL #### [facility] [address], [place] [id number] RBC (Bld) [#/Vol] 5.40 10*6/uL Normal 4.20-5.80 [facility] Data Lead Comment on above: Performed By: #### C BCAD, MG, URIC, LIPD, PHOS, CMP, DBIL #### [facility] [address], [place] [id number] RDW-SD 50.2 fL High 37.0-50.0 [facility] Data Lead Comment on above: Performed By: #### C BCAD, MG, URIC, LIPD, PHOS, CMP, DBIL #### [facility] [address], [place] [id number] WBC (Bld) [#/Vol] 6.4 10*3/uL Normal 3.8-11.0 [facility] Data Lead Comment on above: Performed By: #### C BCAD, MG, URIC, LIPD, PHOS, CMP, DBIL #### [facility] [address], [place] [id number] Comprehensive Metabolic Pane [facility] 06-28-2021 Albumin [Mass/Vol] 4.9 g/dL Normal 3.6-5.1 [facility] Data Lead Comment on above: Performed By: #### C BCAD, MG, URIC, LIPD, PHOS, CMP, DBIL #### [facility] [address], [place] [id number] Albumin/Globulin [Mass ratio] 3.3 {ratio} High 1.0-2.5 [facility] Specialist Comment on above: Performed By: #### C BCAD, MG, URIC, LIPD, PHOS, CMP, DBIL #### [facility] [address], [place] [id number] ALP [Catalytic activity/Vol] 73 U/L Normal 40-129 [facility] Specialist Comment on above: Performed By: #### C BCAD, MG, URIC, LIPD, PHOS, CMP, DBIL #### [facility] [address], [place] [id number] ALT [Catalytic activity/Vol] 26 U/L Normal 9-46 [facility] Comment on above: Result Comment: 03/17 Female reference range changed. Performed By: #### C BCAD, MG, URIC, LIPD, PHOS, CMP, DBIL #### [facility] [address], [place] [id number] Anion gap [Moles/Vol] 16 mmol/L Normal 12-20 [facility] Specialist Comment on above: Result Comment: Effe ctive 04/22/2019 reference range changed. Performed By: #### C BCAD, MG, URIC, LIPD, PHOS, CMP, DBIL #### [facility] [address], [place] [id number] AST [Catalytic activity/Vol] 23 U/L Normal 10-40 [facility] Special[facility] Comment on above: Performed By: #### C BCAD, MG, URIC, LIPD, PHOS, CMP, DBIL #### [facility] [address], [place] [id number] Bilirubin [Mass/Vol] 0.76 mg/dL Normal 0.30-1.20 [facility] Comment on above: Performed By: #### C BCAD, MG, URIC, LIPD, PHOS, CMP, DBIL #### [facility] [address], [place] [id number] BUN/CREA 15 Ratio Normal 6-22 [facility] Specialist Comment on above: Performed By: #### C BCAD, MG, URIC, LIPD, PHOS, CMP, DBIL #### [facility] [address], [place] [id number] Calcium [Mass/Vol] 9.8 mg/dL Normal 8.6-10.2 [facility] Comment on above: Performed By: #### C BCAD, MG, URIC, LIPD, PHOS, CMP, DBIL #### [facility] [address], [place] [id number] Chloride [Moles/Vol] 103 mmol/L Normal 98-107 [facility] Comment on above: Performed By: #### C BCAD, MG, URIC, LIPD, PHOS, CMP, DBIL #### [facility] [address], [place] [id number] CO2 [Moles/Vol] 26 mmol/L Normal 20-31 [facility] Comment on above: Performed By: #### C BCAD, MG, URIC, LIPD, PHOS, CMP, DBIL #### [facility] [address], [place] [id number] Creatinine [Mass/Vol] 1.1 mg/dL Normal 0.7-1.4 [facility] Comment on above: Performed By: #### C BCAD, MG, URIC, LIPD, PHOS, CMP, DBIL #### [facility] [address], [place] [id number] eGFRAA 80 mL/min/1.73m2 Normal >60 [facility] Specialist Comment on above: Performed By: #### C BCAD, MG, URIC, LIPD, PHOS, CMP, DBIL #### [facility] [address], [place] [id number] eGFRNAA 66 mL/min/1.73m2 Normal >60 [facility] Specialist Comment on above: Performed By: #### C BCAD, MG, URIC, LIPD, PHOS, CMP, DBIL #### [facility] [address], [place] [id number] Globulin (S) [Mass/Vol] 1.5 g/dL Low 1.9-3.7 [facility] Comment on above: Performed By: #### C BCAD, MG, URIC, LIPD, PHOS, CMP, DBIL #### [facility] [address], [place] [id number] Glucose [Mass/Vol] 130 mg/dL High 65-99 [facility] [place] Data Lead Comment on above: Result Comment: For FASTING Glucose --- ADA reference ranges: Normal 65-99 mg/dl Prediabetes 100-125 Diabetes >/= 126 Performed By: #### C BCAD, MG, URIC, LIPD, PHOS, CMP, DBIL #### [facility] [address], [place] [id number] Potassium [Moles/Vol] 4.6 mmol/L Normal 3.5-5.5 [facility] Data Lead Comment on above: Performed By: #### C BCAD, MG, URIC, LIPD, PHOS, CMP, DBIL #### [facility] [address], [place] [id number] Protein [Mass/Vol] 6.4 g/dL Normal 6.1-8.1 [facility] Data Lead Comment on above: Performed By: #### C BCAD, MG, URIC, LIPD, PHOS, CMP, DBIL #### [facility] [address], [place] [id number] Sodium [Moles/Vol] 140 mmol/L Normal 135-146 [facility] Data Lead Comment on above: Performed By: #### C BCAD, MG, URIC, LIPD, PHOS, CMP, DBIL #### [facility] [address], [place] [id number] Urea nitrogen [Mass/Vol] 17 mg/dL Normal 7-25 [facility] Data Lead Comment on above: Performed By: #### C BCAD, MG, URIC, LIPD, PHOS, CMP, DBIL #### [facility] [address], [place] [id number] Lipid Panelon 06-28-2021 Cholesterol [Mass/Vol] 111 mg/dL Low 125-200 [facility] Data Lead Comment on above: Result Comment: Low risk < 200mg/dL Borderline risk 201-239 mg/dl High risk > or equal to 240 Performed By: #### C BCAD, MG, URIC, LIPD, PHOS, CMP, DBIL #### [facility] [address], [place] [id number] Cholesterol in HDL [Mass/Vol] 38 mg/dL Low >40 [facility] Data Lead Comment on above: Result Comment: High Cardiovascular Risk HDL <40 mg/dL Low Cardiovascular Risk HDL > or equal to 60 mg/dl Performed By: #### C BCAD, MG, URIC, LIPD, PHOS, CMP, DBIL #### [facility] [address], [place] [id number] Cholesterol in LDL [Mass/Vol] 47 mg/dL Normal [facility] Specialist Comment on above: Result Comment: LDL ATP III CLASSIFICATION LDL less than 100 mg/dl Optimal LDL 100-129 mg/dl Near or above optimal LDL 130-159 Borderline high LDL 160-189 High LDL greater than 189 mg/dl Very High Performed By: #### C BCAD, MG, URIC, LIPD, PHOS, CMP, DBIL #### [facility] [address], [place] [id number] Cholesterol in VLDL [Mass/Vol] 26 mg/dL Normal [facility] Data Lead Comment on above: Performed By: #### C BCAD, MG, URIC, LIPD, PHOS, CMP, DBIL #### [facility] [address], [place] [id number] Cholesterol.total/Ch olesterol in HDL [Mass ratio] 3 {ratio} Normal [facility] Specialist Comment on above: Performed By: #### C BCAD, MG, URIC, LIPD, PHOS, CMP, DBIL #### [facility] [address], [place] [id number] Triglyceride [Mass/Vol] 132 mg/dL Normal 30-150 [facility] Specialist Comment on above: Result Comment: TRIG ATPIII CLASSIFICATIONS TRIG less than 150 mg/dl Normal TRIG 150-199 mg/dl Borderline High TRIG 200-500 mg/dl High TRIG greather than 500 mg/dl Very High Performed By: #### C BCAD, MG, URIC, LIPD, PHOS, CMP, DBIL #### [facility] [address], [place] [id number] Magnesiumon 06-28-2021 Magnesium [Mass/Vol] 1.7 mg/dL Normal 1.5-2.3 [facility] Specialist Comment on above: Performed By: #### C BCAD, MG, URIC, LIPD, PHOS, CMP, DBIL #### [facility] [address], [place] [id number] Phosphoruson 06-28-2021 Phosphate [Mass/Vol] 3.7 mg/dL Normal 2.2-4.4 [facility] Comment on above: Performed By: #### C BCAD, MG, URIC, LIPD, PHOS, CMP, DBIL #### [facility] [address], [place] [id number] Uric Acidon 06-28-2021 URIC 6.0 mg/dL Normal 4.0-8.0 [facility] Specialist Comment on above: Result Comment: Refe rence range change 03/03/2017. Prior reference range F 2.4-5.7mg/dL. M 3.4-7.0 mg/dL. Performed By: #### C BCAD, MG, URIC, LIPD, PHOS, CMP, DBIL #### [facility] [address], [place] [id number] Pulmonary Functionon 022 Pulmonary Function MR #: [id number] [facility] PT. Name: Vishal Duke Date: 06/02/2021 [...] Syed MD Date Trans: 06/06/2021 02:28 P/ [id number] cc: Rosa M Gonzales M.D. [address] [place] [id number] Normal [facility] Bilirubin, Directon 06-01-19 22 DBIL <0.2 Normal [facility] Data Lead Comment on above: Result Comment: Refe rence range change 03/03/2017. Prior reference range 0.1-0.3 mg/dL. Performed By: #### C BCAD, MG, URIC, LIPD, PHOS, CMP, DBIL #### [facility] [address], [place] [id number] Complete Blood Count with Au to Diffon 06-01-2021 Basophils (Bld) [#/Vol] 0.06 10*3/uL Normal 0.00-0.20 [facility] Data Lead Comment on above: Performed By: #### C BCAD, MG, URIC, LIPD, PHOS, CMP, DBIL #### [facility] [address], [place] [id number] Basophils/100 WBC (Bld) 0.9 % Normal [facility] Data Lead Comment on above: Performed By: #### C BCAD, MG, URIC, LIPD, PHOS, CMP, DBIL #### [facility] [address], [place] [id number] Eosinophils (Bld) [#/Vol] 0.12 10*3/uL Normal 0.02-0.50 [facility] Data Lead Comment on above: Performed By: #### C BCAD, MG, URIC, LIPD, PHOS, CMP, DBIL #### [facility] [address], [place] [id number] Eosinophils/100 WBC (Bld) 1.8 % Normal [facility] Data Lead Comment on above: Performed By: #### C BCAD, MG, URIC, LIPD, PHOS, CMP, DBIL #### [facility] [address], [place] [id number] Erythrocyte distribution width (RBC) [Ratio] 14.7 % Normal 11.0-15.0 [facility] Data Lead Comment on above: Performed By: #### C BCAD, MG, URIC, LIPD, PHOS, CMP, DBIL #### [facility] [address], [place] [id number] Hematocrit (Bld) [Volume fraction] 50.8 % High 38.5-50.0 [facility] Data Lead Comment on above: Performed By: #### C BCAD, MG, URIC, LIPD, PHOS, CMP, DBIL #### [facility] [address], [place] [id number] Hemoglobin (Bld) [Mass/Vol] 16.5 g/dL Normal 13.0-17.1 [facility] Data Lead Comment on above: Performed By: #### C BCAD, MG, URIC, LIPD, PHOS, CMP, DBIL #### [facility] [address], [place] [id number] Lymphocytes (Bld) [#/Vol] 1.1 10*3/uL Normal 0.9-3.9 [facility] Data Lead Comment on above: Performed By: #### C BCAD, MG, URIC, LIPD, PHOS, CMP, DBIL #### [facility] [address], [place] [id number] Lymphocytes/100 WBC (Bld) 16.1 % Normal [facility] Data Lead Comment on above: Performed By: #### C BCAD, MG, URIC, LIPD, PHOS, CMP, DBIL #### [facility] [address], [place] [id number] MCH (RBC) [Entitic mass] 29.8 pg Normal 27.0-33.0 [facility] Data Lead Comment on above: Performed By: #### C BCAD, MG, URIC, LIPD, PHOS, CMP, DBIL #### [facility] [address], [place] [id number] MCHC (RBC) [Mass/Vol] 32.5 g/dL Normal 32.0-36.0 [facility] Specialist Comment on above: Performed By: #### C BCAD, MG, URIC, LIPD, PHOS, CMP, DBIL #### [facility] [address] [facility] [place] [id number] MCV (RBC) [Entitic vol] 92 fL Normal 80-100 [facility] Specialist Comment on above: Performed By: #### C BCAD, MG, URIC, LIPD, PHOS, CMP, DBIL #### [facility] [address] [facility] [place] [id number] Monocytes (Bld) [#/Vol] 0.8 10*3/uL Normal 0.2-0.9 [facility] Specialist Comment on above: Performed By: #### C BCAD, MG, URIC, LIPD, PHOS, CMP, DBIL #### [facility] [address] [facility] [place] [id number] Monocytes/100 WBC (Bld) 11.4 % Normal [facility] Specialist Comment on above: Performed By: #### C BCAD, MG, URIC, LIPD, PHOS, CMP, DBIL #### [facility] [address] [place] [id number] Neutrophils (Bld) [#/Vol] 4.6 10*3/uL Normal 1.5-7.8 [facility] Data Lead Comment on above: Performed By: #### C BCAD, MG, URIC, LIPD, PHOS, CMP, DBIL #### [facility] [address] [facility] [place] [id number] Neutrophils/100 WBC (Bld) 69.2 % Normal [facility] Data Lead Comment on above: Performed By: #### C BCAD, MG, URIC, LIPD, PHOS, CMP, DBIL #### [facility] [address] [facility] [place] [id number] Platelet mean volume (Bld) [Entitic vol] 10.60 fL Normal 7.50-12.50 [facility] Data Lead Comment on above: Performed By: #### C BCAD, MG, URIC, LIPD, PHOS, CMP, DBIL #### [facility] [address] [place], [place] [id number] Platelets (Bld) [#/Vol] 285 10*3/uL Normal 140-400 [facility] Specialist Comment on above: Performed By: #### C BCAD, MG, URIC, LIPD, PHOS, CMP, DBIL #### [facility] [address], [place] [id number] RBC (Bld) [#/Vol] 5.53 10*6/uL Normal 4.20-5.80 [facility] Specialist Comment on above: Performed By: #### C BCAD, MG, URIC, LIPD, PHOS, CMP, DBIL #### [facility] [address], [place] [id number] RDW-SD 49.8 fL Normal 37.0-50.0 [facility] Specialist Comment on above: Performed By: #### C BCAD, MG, URIC, LIPD, PHOS, CMP, DBIL #### [facility] [address], [place] [id number] WBC (Bld) [#/Vol] 6.6 10*3/uL Normal 3.8-11.0 [facility] Data Lead Comment on above: Performed By: #### C BCAD, MG, URIC, LIPD, PHOS, CMP, DBIL #### [facility] [address], [place] [id number] Comprehensive Metabolic Pane [facility] 06-01-2021 Albumin [Mass/Vol] 5.0 g/dL Normal 3.6-5.1 [facility] Data Lead Comment on above: Performed By: #### C BCAD, MG, URIC, LIPD, PHOS, CMP, DBIL #### [facility] [address], [place] [id number] Albumin/Globulin [Mass ratio] 2.6 {ratio} High 1.0-2.5 [facility] Specialist Comment on above: Performed By: #### C BCAD, MG, URIC, LIPD, PHOS, CMP, DBIL #### [facility] [address], [place] [id number] ALP [Catalytic activity/Vol] 93 U/L Normal 40-129 [facility] Specialist Comment on above: Performed By: #### C BCAD, MG, URIC, LIPD, PHOS, CMP, DBIL #### [facility] [address] [facility] [place] [id number] ALT [Catalytic activity/Vol] 30 U/L Normal 9-46 [facility] Specialist Comment on above: Result Comment: 03/17 Female reference range changed. Performed By: #### C BCAD, MG, URIC, LIPD, PHOS, CMP, DBIL #### [facility] [address] [facility] [place] [id number] Anion gap [Moles/Vol] 21 mmol/L High 12-20 [facility] Specialist Comment on above: Result Comment: Effe ctive 04/22/2019 reference range changed. Performed By: #### C BCAD, MG, URIC, LIPD, PHOS, CMP, DBIL #### [facility] [address], [place] [id number] AST [Catalytic activity/Vol] 26 U/L Normal 10-40 [facility] Specialist Comment on above: Performed By: #### C BCAD, MG, URIC, LIPD, PHOS, CMP, DBIL #### [facility] [address] [facility] [place] [id number] Bilirubin [Mass/Vol] 0.72 mg/dL Normal 0.30-1.20 [facility] Comment on above: Performed By: #### C BCAD, MG, URIC, LIPD, PHOS, CMP, DBIL #### [facility] [address], [place] [id number] BUN/CREA 15 Ratio Normal 6-22 [facility] Comment on above: Performed By: #### C BCAD, MG, URIC, LIPD, PHOS, CMP, DBIL #### [facility] [address] [place], [place] [id number] Calcium [Mass/Vol] 10.4 mg/dL High 8.6-10.2 [facility] Comment on above: Performed By: #### C BCAD, MG, URIC, LIPD, PHOS, CMP, DBIL #### [facility] [address] [facility] [place] [id number] Chloride [Moles/Vol] 104 mmol/L Normal 98-107 [facility] Comment on above: Performed By: #### C BCAD, MG, URIC, LIPD, PHOS, CMP, DBIL #### [facility] [address], [place] [id number] CO2 [Moles/Vol] 24 mmol/L Normal 20-31 [facility] Comment on above: Performed By: #### C BCAD, MG, URIC, LIPD, PHOS, CMP, DBIL #### [facility] [address], [place] [id number] Creatinine [Mass/Vol] 1.2 mg/dL Normal 0.7-1.4 [facility] Comment on above: Performed By: #### C BCAD, MG, URIC, LIPD, PHOS, CMP, DBIL #### [facility] [address], [place] [id number] eGFRAA 79 mL/min/1.73m2 Normal >60 [facility] Specialist Comment on above: Performed By: #### C BCAD, MG, URIC, LIPD, PHOS, CMP, DBIL #### [facility] [address], [place] [id number] eGFRNAA 65 mL/min/1.73m2 Normal >60 [facility] Specialist Comment on above: Performed By: #### C BCAD, MG, URIC, LIPD, PHOS, CMP, DBIL #### [facility] [address], [place] [id number] Globulin (S) [Mass/Vol] 1.9 g/dL Normal 1.9-3.7 [facility] Comment on above: Performed By: #### C BCAD, MG, URIC, LIPD, PHOS, CMP, DBIL #### [facility] [address], [place] [id number] Glucose [Mass/Vol] 108 mg/dL High 65-99 [facility] Comment on above: Result Comment: For FASTING Glucose --- ADA reference ranges: Normal 65-99 mg/dl Prediabetes 100-125 Diabetes >/= 126 Performed By: #### C BCAD, MG, URIC, LIPD, PHOS, CMP, DBIL #### [facility] [address], [place] [id number] Potassium [Moles/Vol] 5.0 mmol/L Normal 3.5-5.5 [facility] Data Lead Comment on above: Performed By: #### C BCAD, MG, URIC, LIPD, PHOS, CMP, DBIL #### [facility] [address], [place] [id number] Protein [Mass/Vol] 6.9 g/dL Normal 6.1-8.1 [facility] Data Lead Comment on above: Performed By: #### C BCAD, MG, URIC, LIPD, PHOS, CMP, DBIL #### [facility] [address], [place] [id number] Sodium [Moles/Vol] 143 mmol/L Normal 135-146 [facility] Data Lead Comment on above: Performed By: #### C BCAD, MG, URIC, LIPD, PHOS, CMP, DBIL #### [facility] [address], [place] [id number] Urea nitrogen [Mass/Vol] 17 mg/dL Normal 7-25 [facility] Data Lead Comment on above: Performed By: #### C BCAD, MG, URIC, LIPD, PHOS, CMP, DBIL #### [facility] [address], [place] [id number] Hemoglobin A1Con 06-01-2021 EAG 139.85 Normal [facility] Data Lead Comment on above: Performed By: #### A 1C #### [facility] [address], [place] [id number] HbA1c (Bld) [Mass fraction] 6.5 % High 4.0-6.0 [facility] Data Lead Comment on above: Performed By: #### A 1C #### [facility] [address], [place] [id number] Lipid Panelon 06-01-2021 Cholesterol [Mass/Vol] 129 mg/dL Normal 125-200 [facility] Data Lead Comment on above: Result Comment: Low risk < 200mg/dL Borderline risk 201-239 mg/dl High risk > or equal to 240 Performed By: #### C BCAD, MG, URIC, LIPD, PHOS, CMP, DBIL #### [facility] [address], [place] [id number] Cholesterol in HDL [Mass/Vol] 44 mg/dL Normal >40 [facility] Data Lead Comment on above: Result Comment: High Cardiovascular Risk HDL <40 mg/dL Low Cardiovascular Risk HDL > or equal to 60 mg/dl Performed By: #### C BCAD, MG, URIC, LIPD, PHOS, CMP, DBIL #### [facility] [address], [place] [id number] Cholesterol in LDL [Mass/Vol] 61 mg/dL Normal [facility] Specialist Comment on above: Result Comment: LDL ATP III CLASSIFICATION LDL less than 100 mg/dl Optimal LDL 100-129 mg/dl Near or above optimal LDL 130-159 Borderline high LDL 160-189 High LDL greater than 189 mg/dl Very High Performed By: #### C BCAD, MG, URIC, LIPD, PHOS, CMP, DBIL #### [facility] [address], [place] [id number] Cholesterol in VLDL [Mass/Vol] 24 mg/dL Normal [facility] Data Lead Comment on above: Performed By: #### C BCAD, MG, URIC, LIPD, PHOS, CMP, DBIL #### [facility] [address], [place] [id number] Cholesterol.total/Ch olesterol in HDL [Mass ratio] 3 {ratio} Normal [facility] Specialist Comment on above: Performed By: #### C BCAD, MG, URIC, LIPD, PHOS, CMP, DBIL #### [facility] [address], [place] [id number] Triglyceride [Mass/Vol] 119 mg/dL Normal 30-150 [facility] Specialist Comment on above: Result Comment: TRIG ATPIII CLASSIFICATIONS TRIG less than 150 mg/dl Normal TRIG 150-199 mg/dl Borderline High TRIG 200-500 mg/dl High TRIG greather than 500 mg/dl Very High Performed By: #### C BCAD, MG, URIC, LIPD, PHOS, CMP, DBIL #### [facility] [address], [place] [id number] Magnesiumon 06-01-2021 Magnesium [Mass/Vol] 1.8 mg/dL Normal 1.5-2.3 [facility] Comment on above: Performed By: #### C BCAD, MG, URIC, LIPD, PHOS, CMP, DBIL #### [facility] [address], [place] [id number] Phosphoruson 06-01-2021 Phosphate [Mass/Vol] 4.3 mg/dL Normal 2.2-4.4 [facility] Comment on above: Performed By: #### C BCAD, MG, URIC, LIPD, PHOS, CMP, DBIL #### [facility] [address], [place] [id number] Uric Acidon 06-01-2021 URIC 6.1 mg/dL Normal 4.0-8.0 [facility] Specialist Comment on above: Result Comment: Refe rence range change 03/03/2017. Prior reference range F 2.4-5.7mg/dL. M 3.4-7.0 mg/dL. Performed By: #### C BCAD, MG, URIC, LIPD, PHOS, CMP, DBIL #### [facility] [address], [place] [id number] Bilirubin, Directon 04-30-19 22 DBIL <0.2 Normal [facility] Specialist Comment on above: Result Comment: Refe rence range change 03/03/2017. Prior reference range 0.1-0.3 mg/dL. Performed By: #### C BCAD, MG, URIC, LIPD, PHOS, CMP, DBIL #### [facility] [address], [place] [id number] Complete Blood Count with Au to Diffon 04-30-2021 Basophils (Bld) [#/Vol] 0.07 10*3/uL Normal 0.00-0.20 [facility] Data Lead Comment on above: Performed By: #### C BCAD, MG, URIC, LIPD, PHOS, CMP, DBIL #### [facility] [address], [place] [id number] Basophils/100 WBC (Bld) 1.1 % Normal [facility] Specialist Comment on above: Performed By: #### C BCAD, MG, URIC, LIPD, PHOS, CMP, DBIL #### [facility] [address], [place] [id number] Eosinophils (Bld) [#/Vol] 0.12 10*3/uL Normal 0.02-0.50 [facility] Data Lead Comment on above: Performed By: #### C BCAD, MG, URIC, LIPD, PHOS, CMP, DBIL #### [facility] [address], [place] [id number] Eosinophils/100 WBC (Bld) 1.8 % Normal [facility] Data Lead Comment on above: Performed By: #### C BCAD, MG, URIC, LIPD, PHOS, CMP, DBIL #### [facility] [address], [place] [id number] Erythrocyte distribution width (RBC) [Ratio] 14.7 % Normal 11.0-15.0 [facility] Data Lead Comment on above: Performed By: #### C BCAD, MG, URIC, LIPD, PHOS, CMP, DBIL #### [facility] [address], [place] [id number] Hematocrit (Bld) [Volume fraction] 50.5 % High 38.5-50.0 [facility] Data Lead Comment on above: Performed By: #### C BCAD, MG, URIC, LIPD, PHOS, CMP, DBIL #### [facility] [address], [place] [id number] Hemoglobin (Bld) [Mass/Vol] 16.4 g/dL Normal 13.0-17.1 [facility] Data Lead Comment on above: Performed By: #### C BCAD, MG, URIC, LIPD, PHOS, CMP, DBIL #### [facility] [address], [place] [id number] Lymphocytes (Bld) [#/Vol] 1.0 10*3/uL Normal 0.9-3.9 [facility] Data Lead Comment on above: Performed By: #### C BCAD, MG, URIC, LIPD, PHOS, CMP, DBIL #### [facility] [address], [place] [id number] Lymphocytes/100 WBC (Bld) 14.7 % Normal [place] Data Lead Comment on above: Performed By: #### C BCAD, MG, URIC, LIPD, PHOS, CMP, DBIL #### [facility] [address], [place] [id number] MCH (RBC) [Entitic mass] 29.4 pg Normal 27.0-33.0 [facility] Specialist Comment on above: Performed By: #### C BCAD, MG, URIC, LIPD, PHOS, CMP, DBIL #### [facility] [address], [place] [id number] MCHC (RBC) [Mass/Vol] 32.5 g/dL Normal 32.0-36.0 [facility] Specialist Comment on above: Performed By: #### C BCAD, MG, URIC, LIPD, PHOS, CMP, DBIL #### [facility] [address], [place] [id number] MCV (RBC) [Entitic vol] 91 fL Normal 80-100 [facility] Data Lead Comment on above: Performed By: #### C BCAD, MG, URIC, LIPD, PHOS, CMP, DBIL #### [facility] [address], [place] [id number] Monocytes (Bld) [#/Vol] 0.7 10*3/uL Normal 0.2-0.9 [facility] Specialist Comment on above: Performed By: #### C BCAD, MG, URIC, LIPD, PHOS, CMP, DBIL #### [facility] [address], [place] [id number] Monocytes/100 WBC (Bld) 10.4 % Normal [facility] Specialist Comment on above: Performed By: #### C BCAD, MG, URIC, LIPD, PHOS, CMP, DBIL #### [facility] [address], [place] [id number] Neutrophils (Bld) [#/Vol] 4.7 10*3/uL Normal 1.5-7.8 [facility] Specialist Comment on above: Performed By: #### C BCAD, MG, URIC, LIPD, PHOS, CMP, DBIL #### [facility] [address], [place] [id number] Neutrophils/100 WBC (Bld) 71.4 % Normal [facility] Specialist Comment on above: Performed By: #### C BCAD, MG, URIC, LIPD, PHOS, CMP, DBIL #### [facility] [address], [place] [id number] Platelet mean volume (Bld) [Entitic vol] 10.70 fL Normal 7.50-12.50 [facility] Data Lead Comment on above: Performed By: #### C BCAD, MG, URIC, LIPD, PHOS, CMP, DBIL #### [facility] [address], [place] [id number] Platelets (Bld) [#/Vol] 261 10*3/uL Normal 140-400 [facility] Data Lead Comment on above: Performed By: #### C BCAD, MG, URIC, LIPD, PHOS, CMP, DBIL #### [facility] [address], [place] [id number] RBC (Bld) [#/Vol] 5.57 10*6/uL Normal 4.20-5.80 [facility] Data Lead Comment on above: Performed By: #### C BCAD, MG, URIC, LIPD, PHOS, CMP, DBIL #### [facility] [address], [place] [id number] RDW-SD 49.2 fL Normal 37.0-50.0 [facility] Data Lead Comment on above: Performed By: #### C BCAD, MG, URIC, LIPD, PHOS, CMP, DBIL #### [facility] [address], [place] [id number] WBC (Bld) [#/Vol] 6.6 10*3/uL Normal 3.8-11.0 [place] [facility] [place] Data Lead Comment on above: Performed By: #### C BCAD, MG, URIC, LIPD, PHOS, CMP, DBIL #### [facility] [address], [place] [id number] Comprehensive Metabolic Pane baldomero 04-30-2021 Albumin [Mass/Vol] 4.9 g/dL Normal 3.6-5.1 [facility] [place] Data Lead Comment on above: Performed By: #### C BCAD, MG, URIC, LIPD, PHOS, CMP, DBIL #### [facility] [address], [place] [id number] Albumin/Globulin [Mass ratio] 2.6 {ratio} High 1.0-2.5 [facility] Specialist Comment on above: Performed By: #### C BCAD, MG, URIC, LIPD, PHOS, CMP, DBIL #### [facility] [address], [place] [id number] ALP [Catalytic activity/Vol] 89 U/L Normal 40-129 [facility] Specialist Comment on above: Performed By: #### C BCAD, MG, URIC, LIPD, PHOS, CMP, DBIL #### [facility] [address], [place] [id number] ALT [Catalytic activity/Vol] 30 U/L Normal 9-46 [facility] Specialist Comment on above: Result Comment: 03/17 Female reference range changed. Performed By: #### C BCAD, MG, URIC, LIPD, PHOS, CMP, DBIL #### [facility] [address], [place] [id number] Anion gap [Moles/Vol] 20 mmol/L Normal 12-20 [facility] Specialist Comment on above: Result Comment: Effe ctive 04/22/2019 reference range changed. Performed By: #### C BCAD, MG, URIC, LIPD, PHOS, CMP, DBIL #### [facility] [address], [place] [id number] AST [Catalytic activity/Vol] 23 U/L Normal 10-40 [facility] Specialist Comment on above: Performed By: #### C BCAD, MG, URIC, LIPD, PHOS, CMP, DBIL #### [facility] [address], [place] [id number] Bilirubin [Mass/Vol] 0.52 mg/dL Normal 0.30-1.20 [facility] Specialist Comment on above: Performed By: #### C BCAD, MG, URIC, LIPD, PHOS, CMP, DBIL #### [facility] [address], [place] [id number] BUN/CREA 18 Ratio Normal 6-22 [facility] Specialist Comment on above: Performed By: #### C BCAD, MG, URIC, LIPD, PHOS, CMP, DBIL #### [facility] [address], [place] [id number] Calcium [Mass/Vol] 10.1 mg/dL Normal 8.6-10.2 [facility] Comment on above: Performed By: #### C BCAD, MG, URIC, LIPD, PHOS, CMP, DBIL #### [facility] [address], [place] [id number] Chloride [Moles/Vol] 102 mmol/L Normal 98-107 [facility] Comment on above: Performed By: #### C BCAD, MG, URIC, LIPD, PHOS, CMP, DBIL #### [facility] [address], [place] [id number] CO2 [Moles/Vol] 23 mmol/L Normal 20-31 [facility] Specialist Comment on above: Performed By: #### C BCAD, MG, URIC, LIPD, PHOS, CMP, DBIL #### [facility] [address], [place] [id number] Creatinine [Mass/Vol] 1.3 mg/dL Normal 0.7-1.4 [facility] Specialist Comment on above: Performed By: #### C BCAD, MG, URIC, LIPD, PHOS, CMP, DBIL #### [facility] [address], [place] [id number] eGFRAA 71 mL/min/1.73m2 Normal >60 [facility] Specialist Comment on above: Performed By: #### C BCAD, MG, URIC, LIPD, PHOS, CMP, DBIL #### [facility] [address], [place] [id number] eGFRNAA 59 mL/min/1.73m2 Low >60 [facility] Specialist Comment on above: Performed By: #### C BCAD, MG, URIC, LIPD, PHOS, CMP, DBIL #### [facility] [address], [place] [id number] Globulin (S) [Mass/Vol] 1.9 g/dL Normal 1.9-3.7 [facility] Data Lead Comment on above: Performed By: #### C BCAD, MG, URIC, LIPD, PHOS, CMP, DBIL #### [facility] [address], [place] [id number] Glucose [Mass/Vol] 128 mg/dL High 65-99 [facility] Data Lead Comment on above: Result Comment: For FASTING Glucose --- ADA reference ranges: Normal 65-99 mg/dl Prediabetes 100-125 Diabetes >/= 126 Performed By: #### C BCAD, MG, URIC, LIPD, PHOS, CMP, DBIL #### [facility] [address], [place] [id number] Potassium [Moles/Vol] 4.4 mmol/L Normal 3.5-5.5 [facility] Data Lead Comment on above: Performed By: #### C BCAD, MG, URIC, LIPD, PHOS, CMP, DBIL #### [facility] [address], [place] [id number] Protein [Mass/Vol] 6.8 g/dL Normal 6.1-8.1 [facility] Data Lead Comment on above: Performed By: #### C BCAD, MG, URIC, LIPD, PHOS, CMP, DBIL #### [facility] [address], [place] [id number] Sodium [Moles/Vol] 140 mmol/L Normal 135-146 [facility] Data Lead Comment on above: Performed By: #### C BCAD, MG, URIC, LIPD, PHOS, CMP, DBIL #### [facility] [address], [place] [id number] Urea nitrogen [Mass/Vol] 23 mg/dL Normal 7-25 [facility] Data Lead Comment on above: Performed By: #### C BCAD, MG, URIC, LIPD, PHOS, CMP, DBIL #### [facility] [address], [place] [id number] Lipid Panelon 04-30-2021 Cholesterol [Mass/Vol] 123 mg/dL Low 125-200 [facility] Data Lead Comment on above: Result Comment: Low risk < 200mg/dL Borderline risk 201-239 mg/dl High risk > or equal to 240 Performed By: #### C BCAD, MG, URIC, LIPD, PHOS, CMP, DBIL #### [facility] [address] [place] [id number] Cholesterol in HDL [Mass/Vol] 41 mg/dL Normal >40 [facility] Data Lead Comment on above: Result Comment: High Cardiovascular Risk HDL <40 mg/dL Low Cardiovascular Risk HDL > or equal to 60 mg/dl Performed By: #### C BCAD, MG, URIC, LIPD, PHOS, CMP, DBIL #### [facility] [address] [place], [place] [id number] Cholesterol in LDL [Mass/Vol] 51 mg/dL Normal [facility] Specialist Comment on above: Result Comment: LDL ATP III CLASSIFICATION LDL less than 100 mg/dl Optimal LDL 100-129 mg/dl Near or above optimal LDL 130-159 Borderline high LDL 160-189 High LDL greater than 189 mg/dl Very High Performed By: #### C BCAD, MG, URIC, LIPD, PHOS, CMP, DBIL #### [facility] [address] [facility] [place] [id number] Cholesterol in VLDL [Mass/Vol] 31 mg/dL Normal [facility] Data Lead Comment on above: Performed By: #### C BCAD, MG, URIC, LIPD, PHOS, CMP, DBIL #### [facility] [address], [place] [id number] Cholesterol.total/Ch olesterol in HDL [Mass ratio] 3 {ratio} Normal [facility] Specialist Comment on above: Performed By: #### C BCAD, MG, URIC, LIPD, PHOS, CMP, DBIL #### [facility] [address] [facility] [place] [id number] Triglyceride [Mass/Vol] 156 mg/dL High 30-150 [facility] Data Lead Comment on above: Result Comment: TRIG ATPIII CLASSIFICATIONS TRIG less than 150 mg/dl Normal TRIG 150-199 mg/dl Borderline High TRIG 200-500 mg/dl High TRIG greather than 500 mg/dl Very High Performed By: #### C BCAD, MG, URIC, LIPD, PHOS, CMP, DBIL #### [facility] [address], [place] [id number] Magnesiumon 04-30-2021 Magnesium [Mass/Vol] 2.0 mg/dL Normal 1.5-2.3 [facility] Specialist Comment on above: Performed By: #### C BCAD, MG, URIC, LIPD, PHOS, CMP, DBIL #### [facility] [address], [place] [id number] Phosphoruson 04-30-2021 Phosphate [Mass/Vol] 4.2 mg/dL Normal 2.2-4.4 [facility] Comment on above: Performed By: #### C BCAD, MG, URIC, LIPD, PHOS, CMP, DBIL #### [facility] [address], [place] [id number] Uric Acidon 04-30-2021 URIC 5.3 mg/dL Normal 4.0-8.0 [facility] Specialist Comment on above: Result Comment: Refe rence range change 03/03/2017. Prior reference range F 2.4-5.7mg/dL. M 3.4-7.0 mg/dL. 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 Derick Mac MD. All medical record entries made by the Bernabe were at my direction and personally dictated [...] seen for follow-up of a hospitalization for [facility] D/C 12/11/2020 ICD insert. 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 The device was interrogated it in their office and it appears to be functioning appropriately. Because of all the above he is pleased with his care. 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 Normal [facility] Tobacco Screening.on 022 Fall risk assessment c) Not medically indicated [facility] [address] DO Work Phone: Tobacco use status CP b) No [facility] 250 DO Work Phone: Bilirubin, Directon 03-29-20 21 DBIL <0.2 Normal [facility] Data Lead Comment on above: Result Comment: Refe rence range change 03/03/2017. Prior reference range 0.1-0.3 mg/dL. Performed By: #### C BCAD, MG, URIC, LIPD, PHOS, CMP, DBIL #### [facility] [address], [place] [id number] Complete Blood Count with Au to Diffon 03-29-2021 Basophils (Bld) [#/Vol] 0.06 10*3/uL Normal 0.00-0.20 [facility] Data Lead Comment on above: Performed By: #### C BCAD, MG, URIC, LIPD, PHOS, CMP, DBIL #### [facility] [address], [place] [id number] Basophils/100 WBC (Bld) 0.7 % Normal [facility] Data Lead Comment on above: Performed By: #### C BCAD, MG, URIC, LIPD, PHOS, CMP, DBIL #### [facility] [address], [place] [id number] Eosinophils (Bld) [#/Vol] 0.13 10*3/uL Normal 0.02-0.50 [facility] Data Lead Comment on above: Performed By: #### C BCAD, MG, URIC, LIPD, PHOS, CMP, DBIL #### [facility] [address], [place] [id number] Eosinophils/100 WBC (Bld) 1.6 % Normal [facility] Data Lead Comment on above: Performed By: #### C BCAD, MG, URIC, LIPD, PHOS, CMP, DBIL #### [facility] [address], [place] [id number] Erythrocyte distribution width (RBC) [Ratio] 14.9 % Normal 11.0-15.0 [facility] Data Lead Comment on above: Performed By: #### C BCAD, MG, URIC, LIPD, PHOS, CMP, DBIL #### [facility] [address], [place] [id number] Hematocrit (Bld) [Volume fraction] 51.2 % High 38.5-50.0 [facility] Data Lead Comment on above: Performed By: #### C BCAD, MG, URIC, LIPD, PHOS, CMP, DBIL #### [facility] [address], [place] [id number] Hemoglobin (Bld) [Mass/Vol] 16.0 g/dL Normal 13.0-17.1 [facility] Specialist Comment on above: Performed By: #### C BCAD, MG, URIC, LIPD, PHOS, CMP, DBIL #### [facility] [address], [place] [id number] Lymphocytes (Bld) [#/Vol] 0.9 10*3/uL Normal 0.9-3.9 [facility] Specialist Comment on above: Performed By: #### C BCAD, MG, URIC, LIPD, PHOS, CMP, DBIL #### [facility] [address], [place] [id number] Lymphocytes/100 WBC (Bld) 10.7 % Normal [facility] Specialist Comment on above: Performed By: #### C BCAD, MG, URIC, LIPD, PHOS, CMP, DBIL #### [facility] [address], [place] [id number] MCH (RBC) [Entitic mass] 28.9 pg Normal 27.0-33.0 [facility] Specialist Comment on above: Performed By: #### C BCAD, MG, URIC, LIPD, PHOS, CMP, DBIL #### [facility] [address], [place] [id number] MCHC (RBC) [Mass/Vol] 31.3 g/dL Low 32.0-36.0 [facility] Specialist Comment on above: Performed By: #### C BCAD, MG, URIC, LIPD, PHOS, CMP, DBIL #### [facility] [address], [place] [id number] MCV (RBC) [Entitic vol] 92 fL Normal 80-100 [facility] Specialist Comment on above: Performed By: #### C BCAD, MG, URIC, LIPD, PHOS, CMP, DBIL #### [facility] [address], [place] [id number] Monocytes (Bld) [#/Vol] 0.7 10*3/uL Normal 0.2-0.9 [facility] Specialist Comment on above: Performed By: #### C BCAD, MG, URIC, LIPD, PHOS, CMP, DBIL #### [facility] [address], [place] [id number] Monocytes/100 WBC (Bld) 8.1 % Normal [facility] Specialist Comment on above: Performed By: #### C BCAD, MG, URIC, LIPD, PHOS, CMP, DBIL #### [facility] [address], [place] [id number] Neutrophils (Bld) [#/Vol] 6.4 10*3/uL Normal 1.5-7.8 [facility] Specialist Comment on above: Performed By: #### C BCAD, MG, URIC, LIPD, PHOS, CMP, DBIL #### [facility] [address], [place] [id number] Neutrophils/100 WBC (Bld) 78.5 % Normal [facility] Specialist Comment on above: Performed By: #### C BCAD, MG, URIC, LIPD, PHOS, CMP, DBIL #### [facility] [address], [place] [id number] Platelet mean volume (Bld) [Entitic vol] 11.20 fL Normal 7.50-12.50 [facility] Specialist Comment on above: Performed By: #### C BCAD, MG, URIC, LIPD, PHOS, CMP, DBIL #### [facility] [address], [place] [id number] Platelets (Bld) [#/Vol] 295 10*3/uL Normal 140-400 [facility] Data Lead Comment on above: Performed By: #### C BCAD, MG, URIC, LIPD, PHOS, CMP, DBIL #### [facility] [address], [place] [id number] RBC (Bld) [#/Vol] 5.54 10*6/uL Normal 4.20-5.80 [facility] Specialist Comment on above: Performed By: #### C BCAD, MG, URIC, LIPD, PHOS, CMP, DBIL #### [facility] [address], [place] [id number] RDW-SD 51.0 fL High 37.0-50.0 [facility] Data Lead Comment on above: Performed By: #### C BCAD, MG, URIC, LIPD, PHOS, CMP, DBIL #### [facility] [address], [place] [id number] WBC (Bld) [#/Vol] 8.2 10*3/uL Normal 3.8-11.0 [facility] [place] Data Lead Comment on above: Performed By: #### C BCAD, MG, URIC, LIPD, PHOS, CMP, DBIL #### [facility] [address], [place] [id number] Comprehensive Metabolic Pane [facility] 03-29-2021 Albumin [Mass/Vol] 4.9 g/dL Normal 3.6-5.1 [facility] [place] Data Lead Comment on above: Performed By: #### C BCAD, MG, URIC, LIPD, PHOS, CMP, DBIL #### [facility] [address], [place] [id number] Albumin/Globulin [Mass ratio] 2.5 {ratio} Normal 1.0-2.5 [facility] Data Lead Comment on above: Performed By: #### C BCAD, MG, URIC, LIPD, PHOS, CMP, DBIL #### [facility] [address], [place] [id number] ALP [Catalytic activity/Vol] 86 U/L Normal 40-129 [facility] Data Lead Comment on above: Performed By: #### C BCAD, MG, URIC, LIPD, PHOS, CMP, DBIL #### [facility] [address], [place] [id number] ALT [Catalytic activity/Vol] 33 U/L Normal 9-46 [facility] Data Lead Comment on above: Result Comment: 03/17 Female reference range changed. Performed By: #### C BCAD, MG, URIC, LIPD, PHOS, CMP, DBIL #### [facility] [address], [place] [id number] Anion gap [Moles/Vol] 18 mmol/L Normal 12-20 [facility] Data Lead Comment on above: Result Comment: Effria ctive 04/22/2019 reference range changed. Performed By: #### C BCAD, MG, URIC, LIPD, PHOS, CMP, DBIL #### [facility] [address], [place] [id number] AST [Catalytic activity/Vol] 27 U/L Normal 10-40 [facility] Comment on above: Performed By: #### C BCAD, MG, URIC, LIPD, PHOS, CMP, DBIL #### [facility] [address], [place] [id number] Bilirubin [Mass/Vol] 0.38 mg/dL Normal 0.30-1.20 [facility] Comment on above: Performed By: #### C BCAD, MG, URIC, LIPD, PHOS, CMP, DBIL #### [facility] [address], [place] [id number] BUN/CREA 12 Ratio Normal 6-22 [facility] Comment on above: Performed By: #### C BCAD, MG, URIC, LIPD, PHOS, CMP, DBIL #### [facility] [address], [place] [id number] Calcium [Mass/Vol] 10.3 mg/dL High 8.6-10.2 [facility] Comment on above: Performed By: #### C BCAD, MG, URIC, LIPD, PHOS, CMP, DBIL #### [facility] [address], [place] [id number] Chloride [Moles/Vol] 105 mmol/L Normal 98-107 [facility] Comment on above: Performed By: #### C BCAD, MG, URIC, LIPD, PHOS, CMP, DBIL #### [facility] [address], [place] [id number] CO2 [Moles/Vol] 23 mmol/L Normal 20-31 [facility] Comment on above: Performed By: #### C BCAD, MG, URIC, LIPD, PHOS, CMP, DBIL #### [facility] [address], [place] [id number] Creatinine [Mass/Vol] 1.2 mg/dL Normal 0.7-1.4 [facility] Data Lead Comment on above: Performed By: #### C BCAD, MG, URIC, LIPD, PHOS, CMP, DBIL #### [facility] [address], [place] [id number] eGFRAA 79 mL/min/1.73m2 Normal >60 [facility] Data Lead Comment on above: Performed By: #### C BCAD, MG, URIC, LIPD, PHOS, CMP, DBIL #### [facility] [address], [place] [id number] eGFRNAA 65 mL/min/1.73m2 Normal >60 [facility] Data Lead Comment on above: Performed By: #### C BCAD, MG, URIC, LIPD, PHOS, CMP, DBIL #### [facility] [address], [place] [id number] Globulin (S) [Mass/Vol] 2.0 g/dL Normal 1.9-3.7 [facility] Data Lead Comment on above: Performed By: #### C BCAD, MG, URIC, LIPD, PHOS, CMP, DBIL #### [facility] [address], [place] [id number] Glucose [Mass/Vol] 125 mg/dL High 65-99 [facility] Data Lead Comment on above: Result Comment: For FASTING Glucose --- ADA reference ranges: Normal 65-99 mg/dl Prediabetes 100-125 Diabetes >/= 126 Performed By: #### C BCAD, MG, URIC, LIPD, PHOS, CMP, DBIL #### [facility] [address], [place] [id number] Potassium [Moles/Vol] 4.7 mmol/L Normal 3.5-5.5 [facility] Data Lead Comment on above: Performed By: #### C BCAD, MG, URIC, LIPD, PHOS, CMP, DBIL #### [facility] [address], [place] [id number] Protein [Mass/Vol] 6.9 g/dL Normal 6.1-8.1 [facility] Data Lead Comment on above: Performed By: #### C BCAD, MG, URIC, LIPD, PHOS, CMP, DBIL #### [facility] [address], [place] [id number] Sodium [Moles/Vol] 141 mmol/L Normal 135-146 [facility] Comment on above: Performed By: #### C BCAD, MG, URIC, LIPD, PHOS, CMP, DBIL #### [facility] [address], [place] [id number] Urea nitrogen [Mass/Vol] 14 mg/dL Normal 7-25 [facility] Specialist Comment on above: Performed By: #### C BCAD, MG, URIC, LIPD, PHOS, CMP, DBIL #### [facility] [address], [place] [id number] Lipid Panelon 03-29-2021 Cholesterol [Mass/Vol] 123 mg/dL Low 125-200 [facility] Comment on above: Result Comment: Low risk < 200mg/dL Borderline risk 201-239 mg/dl High risk > or equal to 240 Performed By: #### C BCAD, MG, URIC, LIPD, PHOS, CMP, DBIL #### [facility] [address], [place] [id number] Cholesterol in HDL [Mass/Vol] 42 mg/dL Normal >40 [facility] Specialist Comment on above: Result Comment: High Cardiovascular Risk HDL <40 mg/dL Low Cardiovascular Risk HDL > or equal to 60 mg/dl Performed By: #### C BCAD, MG, URIC, LIPD, PHOS, CMP, DBIL #### [facility] [address], [place] [id number] Cholesterol in LDL [Mass/Vol] 58 mg/dL Normal [facility] Comment on above: Result Comment: LDL ATP III CLASSIFICATION LDL less than 100 mg/dl Optimal LDL 100-129 mg/dl Near or above optimal LDL 130-159 Borderline high LDL 160-189 High LDL greater than 189 mg/dl Very High Performed By: #### C BCAD, MG, URIC, LIPD, PHOS, CMP, DBIL #### [facility] [address], [place] [id number] Cholesterol in VLDL [Mass/Vol] 23 mg/dL Normal [place] Data Lead Comment on above: Performed By: #### C BCAD, MG, URIC, LIPD, PHOS, CMP, DBIL #### [facility] [address], [place] [id number] Cholesterol.total/Ch olesterol in HDL [Mass ratio] 3 {ratio} Normal [facility] Specialist Comment on above: Performed By: #### C BCAD, MG, URIC, LIPD, PHOS, CMP, DBIL #### [facility] [address], [place] [id number] Triglyceride [Mass/Vol] 113 mg/dL Normal 30-150 [facility] Specialist Comment on above: Result Comment: TRIG ATPIII CLASSIFICATIONS TRIG less than 150 mg/dl Normal TRIG 150-199 mg/dl Borderline High TRIG 200-500 mg/dl High TRIG greather than 500 mg/dl Very High Performed By: #### C BCAD, MG, URIC, LIPD, PHOS, CMP, DBIL #### [facility] [address], [place] [id number] Magnesiumon 03-29-2021 Magnesium [Mass/Vol] 1.9 mg/dL Normal 1.5-2.3 [facility] Specialist Comment on above: Performed By: #### C BCAD, MG, URIC, LIPD, PHOS, CMP, DBIL #### [facility] [address], [place] [id number] Phosphoruson 03-29-2021 Phosphate [Mass/Vol] 4.1 mg/dL Normal 2.2-4.4 [facility] Specialist Comment on above: Performed By: #### C BCAD, MG, URIC, LIPD, PHOS, CMP, DBIL #### [facility] [address], [place] [id number] Uric Acidon 03-29-2021 URIC 7.5 mg/dL Normal 4.0-8.0 [facility] Specialist Comment on above: Result Comment: Refe rence range change 03/03/2017. Prior reference range F 2.4-5.7mg/dL. M 3.4-7.0 mg/dL. Performed By: #### C BCAD, MG, URIC, LIPD, PHOS, CMP, DBIL #### [facility] [address] [place] [id number] [facility] CHEST 2 [facility] 12-24-2020 [facility] CHEST 2 [facility] Department of Radiology [address] [place] [id number] Patient Name: VISHAL DUKE : 1960 Sex: M Age: Race: White Pt. Location: [facility] Patient Status: D Ordered Date: 12/24/2020 3:50:00 PM Completed Date: 12/24/2020 03:48 PM Requesting Provider: ZULY VERDUZCO Attending Provider: Report Copy To: Signs & Symptoms: U07.1 COVID-19 I10 History: Post Comments: covid Exam: [facility] CHEST 2 [facility] CHEST 2 [facility] 12/24/2020 3:48 PM CLINICAL INDICATIONS: U07.1 COVID-19 [...] process. Electronically signed: Giovana Garrido. Transcribed by: [id number], User Resident: Electronically Signed by: GIOVANA GARRIDO @ 12/25/2020 12:24 PM Normal [facility] Comment on above: Order Comment: No: D o not add to previous draw CV'D BY [facility] AT 1240 Glucose Poct Glucometerson 0 12-12-2020 Commemt1 Glu2: Cleaned Meter Normal [facility] Comment on above: Result Comment: PERF ORMED BY: [place] [id number] PATHOLOGIST [employer] OPERATOR SHYANN OLIVIER M.D. Performed By: #### B MP, HS TROP, CBC, PT, PTT, BNP #### [place] [id number] [facility] Glucose [Mass/Vol] 147 mg/dL Normal [facility] Comment on above: Result Comment: [place] om Glucose Reference Range is dependent on time and content of last meal. Glucose of more than 200 mg/dL in a nonstressed, ambulatory subject supports the diagnosis of Diabetes Mellitus. Performed By: #### B MP, HS TROP, CBC, PT, PTT, BNP #### [place] [id number] [facility] Glucose [Mass/Vol] 107 mg/dL Normal [facility] Comment on above: Result Comment: [place] om Glucose Reference Range is dependent on time and content of last meal. Glucose of more than 200 mg/dL in a nonstressed, ambulatory subject supports the diagnosis of Diabetes Mellitus. PERFORMED BY: [address] [address] PATHOLOGIST [employer]UTTER OPERATOR SHYANN OLIVIER M.D. Performed By: #### B MP, HS TROP, CBC, PT, PTT, BNP #### [address] [address] [place] XR chest 2V*on 12-12-2020 XR chest 2V* [facility] Main [place] [address] [place] [address] XRay Report Signed Patient: Vishal Duke MR#: [id number] : 1960 Acct:[id number] Age/Sex: 59 / M ADM Date: 12/08/20 Loc: Room: 4Q6684-8 Type: ADM IN Attending Dr: Leonardo Storey [...] Farah Jr., M.D.12/12/2020 9:15 AM Dictation Location: [place] [address] Transcribed By: [facility] 12/12/20914 Dictated By: Faraz Farah Jr, MD 12/12/20908 Signed By: 12/12/[address] [facility] Basic Metabolic Panelon 11-16 Calcium [Mass/Vol] 8.9 mg/dL Normal 8.2-10.2 [facility] Comment on above: Performed By: #### B MP, HS TROP, CBC, PT, PTT, BNP #### [facility] [address] [place] [address] [place] Chloride [Moles/Vol] 105 mmol/L Normal 95-114 [facility] Comment on above: Performed By: #### B MP, HS TROP, CBC, PT, PTT, BNP #### [facility] [address] [place] [address] [place] CO2 [Moles/Vol] 22.1 mmol/L Normal 22.0-30.0 [facility] Comment on above: Performed By: #### B MP, HS TROP, CBC, PT, PTT, BNP #### [facility] [address] Creatinine [Mass/Vol] 1.08 mg/dL Normal 0.64-1.[address] [facility] Comment on above: Performed By: #### B MP, HS TROP, CBC, PT, PTT, BNP #### [address] Creatinine Clr Calc Pharmacy 78.44 [facility] Comment on above: Result Comment: PERF ORMED BY: [place] [address] PATHOLOGIST [employer] OPERATOR SHYANN OLIVIER M.D. Performed By: #### B MP, HS TROP, CBC, PT, PTT, BNP #### [address] Estimated GFR ( Nata > 60 [facility] Comment on above: Result Comment: GFR estimated reference range: According to KDOQI guidelines, <60 ml/min/1.73m2 is sufficient to diagnose a patient with chronic kidney disease. Performed By: #### B MP, HS TROP, CBC, PT, PTT, BNP #### [address] Estimated GFR (Non- Am > 60 [facility] Comment on above: Performed By: #### B MP, HS TROP, CBC, PT, PTT, BNP #### [address] Glucose [Mass/Vol] 138 mg/dL High 70-100 [facility] Comment on above: Result Comment: [place] Glucose Reference Range is dependent on time and content of last meal. Glucose of more than 200 mg/dL in a nonstressed, ambulatory subject supports the diagnosis of Diabetes Mellitus. ADA recommended reference range Performed By: #### B MP, HS TROP, CBC, PT, PTT, BNP #### [address] Potassium [Moles/Vol] 4.2 mmol/L Normal 3.5-5.[address] [facility] Comment on above: Performed By: #### B MP, HS TROP, CBC, PT, PTT, BNP #### [address] Sodium [Moles/Vol] 138 mmol/L Normal 136-146 [facility] Comment on above: Performed By: #### B MP, HS TROP, CBC, PT, PTT, BNP #### [address] Urea nitrogen [Mass/Vol] 11 mg/dL Normal 9-[address] [facility] Comment on above: Performed By: #### B MP, HS TROP, CBC, PT, PTT, BNP #### [address] Complete Blood Count Auto Di ffon 12-11-2020 Basophils (Bld) [#/Vol] 0.1 10*3/uL Normal 0.0-0.[address] [facility] Comment on above: Result Comment: PERF ORMED BY: [place] [address] PATHOLOGIST ABR[employer]IVE W[employer] JET CUTTER OPERATOR SHYANN OLIVIER M.D. Performed By: #### B MP, HS TROP, CBC, PT, PTT, BNP #### [address] Basophils/100 WBC (Bld) 0.7 % Normal . [facility] Comment on above: Performed By: #### B MP, HS TROP, CBC, PT, PTT, BNP #### [address] Eosinophils (Bld) [#/Vol] 0.1 10*3/uL Normal 0.0-0.[address] [facility] Comment on above: Performed By: #### B MP, HS TROP, CBC, PT, PTT, BNP #### [address] Eosinophils/100 WBC (Bld) 1.3 % Normal . [facility] Comment on above: Performed By: #### B MP, HS TROP, CBC, PT, PTT, BNP #### [address] Erythrocyte distribution width (RBC) [Ratio] 15.2 % High 12.0-14.[address] [facility] Comment on above: Performed By: #### B MP, HS TROP, CBC, PT, PTT, BNP #### [address] Hematocrit (Bld) [Volume fraction] 38.0 % Low 38.8-50.[address] [facility] Comment on above: Performed By: #### B MP, HS TROP, CBC, PT, PTT, BNP #### [address] Hemoglobin (Bld) [Mass/Vol] 13.0 g/dL Normal 13.0-17.[address] [facility] Comment on above: Performed By: #### B MP, HS TROP, CBC, PT, PTT, BNP #### [address] Lymphocytes (Bld) [#/Vol] 0.7 10*3/uL Low 1.00-4.[address] [facility] Comment on above: Performed By: #### B MP, HS TROP, CBC, PT, PTT, BNP #### [address] Lymphocytes/100 WBC (Bld) 7.7 % Normal . [facility] Comment on above: Performed By: #### B MP, HS TROP, CBC, PT, PTT, BNP #### [address] MCH (RBC) [Entitic mass] 31.5 pg Normal 27.5-35.[address] [facility] Comment on above: Performed By: #### B MP, HS TROP, CBC, PT, PTT, BNP #### [address] MCV (RBC) [Entitic vol] 91.7 fL Normal 83.5-[address] [facility] Comment on above: Performed By: #### B MP, HS TROP, CBC, PT, PTT, BNP #### [address] Mean Corpuscular HGB Conc 34.3 g/dL Normal 32.5-35.[address] [facility] Comment on above: Performed By: #### B MP, HS TROP, CBC, PT, PTT, BNP #### [facility] [address] Monocytes (Bld) [#/Vol] 0.9 10*3/uL High 0.0-0.[address] [facility] Comment on above: Performed By: #### B MP, HS TROP, CBC, PT, PTT, BNP #### [facility] [address] Monocytes/100 WBC (Bld) 9.4 % Normal . [facility] Comment on above: Performed By: #### B MP, HS TROP, CBC, PT, PTT, BNP #### [address] Neutrophils (Bld) [#/Vol] 7.5 10*3/uL Normal 1.8-7.[address] [facility] Comment on above: Performed By: #### B MP, HS TROP, CBC, PT, PTT, BNP #### [facility] [address] [place] [address] [place] Neutrophils/100 WBC (Bld) 80.9 % Normal . [facility] Comment on above: Performed By: #### B MP, HS TROP, CBC, PT, PTT, BNP #### [facility] [address] [place] [address] [place] Nucleated RBC/100 WBC (Bld) [Ratio] 0.0 % Normal 0-0.[address] [facility] Comment on above: Performed By: #### B MP, HS TROP, CBC, PT, PTT, BNP #### [facility] [address] [place] [address] [place] Platelet mean volume (Bld) [Entitic vol] 7.6 fL Normal 6.6-10.[address] [facility] Comment on above: Performed By: #### B MP, HS TROP, CBC, PT, PTT, BNP #### [facility] [address] [place] [address] [place] Platelets (Bld) [#/Vol] 385 10*3/uL Normal 150-[address] [facility] Comment on above: Performed By: #### B MP, HS TROP, CBC, PT, PTT, BNP #### [facility] [address] RBC (Bld) [#/Vol] 4.14 10*6/uL Normal 3.90-5.60 [facility] Comment on above: Performed By: #### B MP, HS TROP, CBC, PT, PTT, BNP #### [facility] [address] WBC (Bld) [#/Vol] 9.3 10*3/uL Normal 4.5-11.0 [facility] Comment on above: Performed By: #### B MP, HS TROP, CBC, PT, PTT, BNP #### [address] Glucose Poct Glucometerson 0 12-11-2020 Glucose [Mass/Vol] 129 mg/dL Normal [facility] Comment on above: Result Comment: [facility] Glucose Reference Range is dependent on time and content of last meal. Glucose of more than 200 mg/dL in a nonstressed, ambulatory subject supports the diagnosis of Diabetes Mellitus. PERFORMED BY: [place] [address] PATHOLOGIST ABR[employer]IVE W[employer] CUTTER OPERATOR SHYANN OLIVIER M.D. Performed By: #### B MP, HS TROP, CBC, PT, PTT, BNP #### [address] Partial Thromboplastin Timeo n 12-11-2020 aPTT Coag (Bld) [Time] 32.7 s Normal 25.1-36.[address] [facility] Comment on above: Result Comment: PERF ORMED BY: [place] [address] PATHOLOGIST ABR[employer]IVE W[employer] CUTTER OPERATOR SHYANN OLIVIER M.D. Performed By: #### B MP, HS TROP, CBC, PT, PTT, BNP #### [place] [id number] [facility] Prothrombin Time INRon 12-11 INR Coag (PPP) [Relative time] 1.2 {INR} Normal [facility] Comment on above: Result Comment: INR [...] HS TROP, CBC, PT, PTT, BNP #### [facility] [address] [place] [address] PT Coag (PPP) [Time] 13.8 s High 9.0-12.9 [facility] Comment on above: Performed By: #### B MP, HS TROP, CBC, PT, PTT, BNP #### [place] [id number] [facility] XR chest 1V portableon 12-11 XR chest 1V portable [facility] Main [place] [address] [place] [address] XRay Report Signed Patient: Vishal Duke MR#: [id number] : 1960 Acct:[id number] Age/Sex: 59 / M ADM Date: 12/08/20 Loc: Room: [address] [place] [address] Type: ADM IN Attending Dr: Leonardo Storey [...] Biju Ag M.D.12/11/2020 12:40 PM Dictation Location: [place] [address] Transcribed By: [facility] 12/11/20 1240 Dictated By: Biju Ag MD 12/11/20 1236 Signed By: 12/11/20 [address] [facility] Complete Blood Count Auto Di ffon 12-10-2020 Basophils (Bld) [#/Vol] 0.0 10*3/uL Normal 0.0-0.[address] [facility] Comment on above: Result Comment: PERF ORMED BY: [place] [address] PATHOLOGIST ABR[employer]IVE W[employer] OPERATOR SHYANN OLIVIER M.D. Performed By: #### B MP, HS TROP, CBC, PT, PTT, BNP #### [address] Basophils/100 WBC (Bld) 0.3 % Normal . [facility] Comment on above: Performed By: #### B MP, HS TROP, CBC, PT, PTT, BNP #### [address] Eosinophils (Bld) [#/Vol] 0.1 10*3/uL Normal 0.0-0.[address] [facility] Comment on above: Performed By: #### B MP, HS TROP, CBC, PT, PTT, BNP #### [address] Eosinophils/100 WBC (Bld) 0.5 % Normal . [facility] Comment on above: Performed By: #### B MP, HS TROP, CBC, PT, PTT, BNP #### [address] Erythrocyte distribution width (RBC) [Ratio] 15.1 % High 12.0-14.[address] [facility] Comment on above: Performed By: #### B MP, HS TROP, CBC, PT, PTT, BNP #### [address] Hematocrit (Bld) [Volume fraction] 39.5 % Normal 38.8-50.[address] [facility] Comment on above: Performed By: #### B MP, HS TROP, CBC, PT, PTT, BNP #### [address] Hemoglobin (Bld) [Mass/Vol] 13.1 g/dL Normal 13.0-17.[address] [facility] Comment on above: Performed By: #### B MP, HS TROP, CBC, PT, PTT, BNP #### [address] Lymphocytes (Bld) [#/Vol] 0.5 10*3/uL Low 1.00-4.[address] [facility] Comment on above: Performed By: #### B MP, HS TROP, CBC, PT, PTT, BNP #### [address] Lymphocytes/100 WBC (Bld) 4.0 % Normal . [facility] Comment on above: Performed By: #### B MP, HS TROP, CBC, PT, PTT, BNP #### [address] MCH (RBC) [Entitic mass] 31.2 pg Normal 27.5-35.[address] [facility] Comment on above: Performed By: #### B MP, HS TROP, CBC, PT, PTT, BNP #### [address] MCV (RBC) [Entitic vol] 94.1 fL Normal 83.5-[address] [facility] Comment on above: Performed By: #### B MP, HS TROP, CBC, PT, PTT, BNP #### [address] Mean Corpuscular HGB Conc 33.2 g/dL Normal 32.5-35.[address] [facility] Comment on above: Performed By: #### B MP, HS TROP, CBC, PT, PTT, BNP #### [place] [address] [place] Monocytes (Bld) [#/Vol] 0.8 10*3/uL Normal 0.0-0.[address] [facility] Comment on above: Performed By: #### B MP, HS TROP, CBC, PT, PTT, BNP #### [address] Monocytes/100 WBC (Bld) 6.6 % Normal . [facility] Comment on above: Performed By: #### B MP, HS TROP, CBC, PT, PTT, BNP #### [address] Neutrophils (Bld) [#/Vol] 10.5 10*3/uL High 1.8-7.[address] [facility] Comment on above: Performed By: #### B MP, HS TROP, CBC, PT, PTT, BNP #### [address] Neutrophils/100 WBC (Bld) 88.6 % Normal . [facility] Comment on above: Performed By: #### B MP, HS TROP, CBC, PT, PTT, BNP #### [address] Nucleated RBC/100 WBC (Bld) [Ratio] 0.1 % Normal 0-0.[address] [facility] Comment on above: Performed By: #### B MP, HS TROP, CBC, PT, PTT, BNP #### [place] [address] [place] Platelet mean volume (Bld) [Entitic vol] 8.1 fL Normal 6.6-10.[address] [facility] Comment on above: Performed By: #### B MP, HS TROP, CBC, PT, PTT, BNP #### [address] Platelets (Bld) [#/Vol] 403 10*3/uL Normal 150-[address] [facility] Comment on above: Performed By: #### B MP, HS TROP, CBC, PT, PTT, BNP #### [address] RBC (Bld) [#/Vol] 4.20 10*6/uL Normal 3.90-5.60 [facility] Comment on above: Performed By: #### B MP, HS TROP, CBC, PT, PTT, BNP #### [address] WBC (Bld) [#/Vol] 11.9 10*3/uL High 4.5-11.0 [facility] Comment on above: Performed By: #### B MP, HS TROP, CBC, PT, PTT, BNP #### [address] Comprehensive Metabolic Pane baldomero 12-10-2020 Albumin [Mass/Vol] 3.1 g/dL Low 3.2-5.5 [facility] Comment on above: Result Comment: --- 12/10/201240 --- Alb previously reported as: 2.8 L gm/dL Performed By: #### B MP, HS TROP, CBC, PT, PTT, BNP #### [address] Albumin/Globulin [Mass ratio] 0.9 {ratio} Normal [facility] Comment on above: Result Comment: --- 12/10/201240 --- A/G Ratio previously reported as: 0.8 Performed By: #### B MP, HS TROP, CBC, PT, PTT, BNP #### [address] ALP [Catalytic activity/Vol] 98 U/L High 32-[address] [facility] Comment on above: Result Comment: --- 12/10/201241 --- Alk Phos previously reported as: 91 U/L Performed By: #### B MP, HS TROP, CBC, PT, PTT, BNP #### [address] ALT [Catalytic activity/Vol] 123 U/L High 10-[address] [facility] Comment on above: Result Comment: --- 12/10/201241 --- ALT previously reported as: 116 H U/L Performed By: #### B MP, HS TROP, CBC, PT, PTT, BNP #### [address] AST [Catalytic activity/Vol] 91 U/L High 10-[address] [facility] Comment on above: Result Comment: --- 12/10/201241 --- AST previously reported as: 82 H U/L Performed By: #### B MP, HS TROP, CBC, PT, PTT, BNP #### [facility] [address] [place] [address] Bilirubin [Mass/Vol] 0.7 mg/dL Normal 0.3-1.2 [facility] Comment on above: Result Comment: --- 12/10/201240 --- TOTAL BILI previously reported as: 0.9 mg/dL Performed By: #### B MP, HS TROP, CBC, PT, PTT, BNP #### [facility] [address] [place] [address] Calcium [Mass/Vol] 9.0 mg/dL Normal 8.2-10.2 [facility] Comment on above: Result Comment: --- 12/10/201240 --- CA previously reported as: 8.2 mg/dL Performed By: #### B MP, HS TROP, CBC, PT, PTT, BNP #### [facility] [address] [place] [address] Chloride [Moles/Vol] 99 mmol/L Normal 95-114 [facility] Comment on above: Result Comment: --- 12/10/201240 --- CL previously reported as: 97 mmol/L Performed By: #### B MP, HS TROP, CBC, PT, PTT, BNP #### [address] CO2 [Moles/Vol] 20.4 mmol/L Low 22.0-30.0 [facility] Comment on above: Result Comment: --- 12/10/201240 --- CO2 previously reported as: 21.7 L mmol/L Performed By: #### B MP, HS TROP, CBC, PT, PTT, BNP #### [address] Creatinine [Mass/Vol] 1.09 mg/dL Normal 0.64-1.[address] [facility] Comment on above: Result Comment: --- 12/10/201239 --- Creat previously reported as: 1.01 mg/dL Performed By: #### B MP, HS TROP, CBC, PT, PTT, BNP #### [address] Creatinine Clr Calc Pharmacy 77.72 [facility] Comment on above: Result Comment: --- 12/10/201239 --- Creat Calc PHA previously reported as: 83.87 PERFORMED BY: [place] [address] PATHOLOGIST A[employer]IVE W[employer] C[employer]TER OPERATOR SHYANN OLIVIER M.D. Performed By: #### B MP, HS TROP, CBC, PT, PTT, BNP #### [address] Estimated GFR ( Nata > 60 [facility] Comment on above: Result Comment: --- 12/10/201226 --- GFReAA previously reported as: > 60 mL/Min GFR estimated reference range: According to KDOQI guidelines, <60 ml/min/1.73m2 is sufficient to diagnose a patient with chronic kidney disease. Performed By: #### B MP, HS TROP, CBC, PT, PTT, BNP #### [address] Estimated GFR (Non- Am > 60 [facility] Comment on above: Result Comment: --- 12/10/201226 --- GFRe previously reported as: > 60 mL/Min Performed By: #### B MP, HS TROP, CBC, PT, PTT, BNP #### [address] Globulin (S) [Mass/Vol] 3.3 g/dL [facility] Comment on above: Result Comment: --- 12/10/20 1227 --- Glob previously reported as: 3.3 gm/dL Performed By: #### B MP, HS TROP, CBC, PT, PTT, BNP #### [address] Glucose [Mass/Vol] 160 mg/dL High 70-100 [facility] Comment on above: Result Comment: [...] HS TROP, CBC, PT, PTT, BNP #### [address] Potassium [Moles/Vol] 4.1 mmol/L Normal 3.5-5.[address] [facility] Comment on above: Result Comment: --- 12/10/20 124 --- K previously reported as: 3.8 mmol/L Performed By: #### B MP, HS TROP, CBC, PT, PTT, BNP #### [address] Protein [Mass/Vol] 6.4 g/dL Normal 6.1-7.9 [facility] Comment on above: Result Comment: --- 12/10/20 1241 --- TP previously reported as: 6.1 gm/dL Performed By: #### B MP, HS TROP, CBC, PT, PTT, BNP #### [address] Sodium [Moles/Vol] 134 mmol/L Low 136-146 [facility] Comment on above: Result Comment: --- 12/10/20 1241 --- NA previously reported as: 128 # L mmol/L Performed By: #### B MP, HS TROP, CBC, PT, PTT, BNP #### [facility] 1[address] [place] [address] [place] Urea nitrogen [Mass/Vol] 10 mg/dL Normal 01-[address] [facility] Comment on above: Result Comment: --- 12/10/20 1239 --- BUN previously reported as: 10 mg/dL Performed By: #### B MP, HS TROP, CBC, PT, PTT, BNP #### [facility] [address] [place] [id number] [facility] ECG 12 lead ECGon 12-10-2020 ECG 12 lead ECG [facility] Main [address] [address] Electrocardiograph Report Signed Patient: Vishla Duke MR#: [id number] : 1960 Acct:[id number] Age/Sex: 59 / M ADM Date: 12/08/20 Loc: Room: [address] [place] [address] Type: ADM IN Attending Dr: Leonardo Storey [...] in Lateral leads Confirmed by DAT FRANK [facility], KADEN ([id number]) on 12/10/2020 9:00:58 AM Referred By: Electronically Signed By:KADEN DAUGHERTY MD [facility] Transcribed By: MUS Dictated By: Kaden Daugherty MD, FACC 12/10/20 0652 Signed By: 12/10/20 [address] [facility] ECH echo transthoracicon [facility] echo transthoracic [facility] Main [address] [address] Echocardiogram Signed Patient: Vishal Duke MR#: [id number] : 1960 Acct:[id number] Age/Sex: 59 / M ADM Date: 12/08/20 Loc: Room: [address] [place] [address] Type: ADM IN Attending Dr: Leonardo Storey [...] By: 12/10/20 [address] [facility] Glucose Poct Glucometerson 0 12-10-2020 Glucose [Mass/Vol] 157 mg/dL Normal [facility] Comment on above: Result Comment: [place] Glucose Reference Range is dependent on time and content of last meal. Glucose of more than 200 mg/dL in a nonstressed, ambulatory subject supports the diagnosis of Diabetes Mellitus. PERFORMED BY: [place] [address] PATHOLOGIST ABR[employer]IVE W[employer] CUTTER OPERATOR SHYANN OLIVIER M.D. Performed By: #### B MP, HS TROP, CBC, PT, PTT, BNP #### [address] Commemt1 Glu2: Cleaned Meter Normal [facility] Comment on above: Result Comment: PERF ORMED BY: [place] [address] PATHOLOGIST ABR[employer]IVE W[employer] C[employer]TER OPERATOR SHYANN OLIVIER M.D. Performed By: #### B MP, HS TROP, CBC, PT, PTT, BNP #### [address] Glucose [Mass/Vol] 122 mg/dL Normal [facility] Comment on above: Result Comment: [place] Glucose Reference Range is dependent on time and content of last meal. Glucose of more than 200 mg/dL in a nonstressed, ambulatory subject supports the diagnosis of Diabetes Mellitus. Performed By: #### B MP, HS TROP, CBC, PT, PTT, BNP #### [facility] [address] [place] [id number] [facility] Glucose [Mass/Vol] 179 mg/dL Normal [facility] Comment on above: Result Comment: [facility] Glucose Reference Range is dependent on time and content of last meal. Glucose of more than 200 mg/dL in a nonstressed, ambulatory subject supports the diagnosis of Diabetes Mellitus. PERFORMED BY: [place] [address] PATHOLOGIST ABR[employer] C[employer]TER OPERATOR SHYANN OLIVIER M.D. Performed By: #### B MP, HS TROP, CBC, PT, PTT, BNP #### [facility] [address] [place], [place] [id number] [facility] Troponin I High Sensitivityo n 12-10-2020 Troponin I High Sensitivity 9777 pg/mL Off scale high 0-[address] [facility] Comment on above: Result Comment: PERF ORMED BY: [place] [address] PATHOLOGIST ABR[employer]IVE W[employer] J[employer] CUTTER OPERATOR SHYANN OLIVIER M.D. Performed By: #### B MP, HS TROP, CBC, PT, PTT, BNP #### [facility] [address] [place], [place] [id number] [facility] XR chest 1V portableon 12-10 XR chest 1V portable [facility] Main [place] [address] [place], [place] [id number] XRay Report Signed Patient: Vishal Duke MR#: [id number] : 1960 Acct:[id number] Age/Sex: 59 / M ADM Date: 12/08/20 Loc: Room: [address] [place] [address] Type: ADM IN Attending Dr: Leonardo Storey [...] Ajith Saleh M.D.12/10/2020 8:05 AM Dictation Location: [facility]-11 Transcribed By: [facility] 12/10/20804 Dictated By: Ajith Saleh II, MD 12/10/20802 Signed By: 12/10/20804 [facility] Basic Metabolic Panel 11-16 Calcium [Mass/Vol] 9.6 mg/dL Normal 8.2-10.2 [facility] Comment on above: Performed By: #### B MP, HS TROP, CBC, PT, PTT, BNP #### [place] [address] [place] Chloride [Moles/Vol] 101 mmol/L Normal 95-114 [facility] Comment on above: Performed By: #### B MP, HS TROP, CBC, PT, PTT, BNP #### [facility] [address] [place] [address] CO2 [Moles/Vol] 23.3 mmol/L Normal 22.0-30.0 [facility] Comment on above: Performed By: #### B MP, HS TROP, CBC, PT, PTT, BNP #### [facility] [address] [place] [address] [place] Creatinine [Mass/Vol] 0.97 mg/dL Normal 0.64-1.[address] [facility] Comment on above: Performed By: #### B MP, HS TROP, CBC, PT, PTT, BNP #### [place] [address] [place] Creatinine Clr Calc Pharmacy 87.33 [facility] Comment on above: Result Comment: PERF ORMED BY: [place] [id number] PATHOLOGIST ABR[employer]IVE W[employer] C[employer] OPERATOR SHYANN OLIVIER M.D. Performed By: #### B MP, HS TROP, CBC, PT, PTT, BNP #### [address] Estimated GFR ( Nata > [address] [facility] Comment on above: Result Comment: GFR estimated reference range: According to KDOQI guidelines, <60 ml/min/1.73m2 is sufficient to diagnose a patient with chronic kidney disease. Performed By: #### B MP, HS TROP, CBC, PT, PTT, BNP #### [address] Estimated GFR (Non- Am > [address] [facility] Comment on above: Performed By: #### B MP, HS TROP, CBC, PT, PTT, BNP #### [address] Glucose [Mass/Vol] 128 mg/dL High 70-100 [facility] Comment on above: Result Comment: [place] om Glucose Reference Range is dependent on time and content of last meal. Glucose of more than 200 mg/dL in a nonstressed, ambulatory subject supports the diagnosis of Diabetes Mellitus. ADA recommended reference range Performed By: #### B MP, HS TROP, CBC, PT, PTT, BNP #### [address] Potassium [Moles/Vol] 4.2 mmol/L Normal 3.5-5.[address] [facility] Comment on above: Performed By: #### B MP, HS TROP, CBC, PT, PTT, BNP #### [address] Sodium [Moles/Vol] 139 mmol/L Normal 136-146 [facility] Comment on above: Performed By: #### B MP, HS TROP, CBC, PT, PTT, BNP #### [address] Urea nitrogen [Mass/Vol] 15 mg/dL Normal 9-[address] [facility] Comment on above: Performed By: #### B MP, HS TROP, CBC, PT, PTT, BNP #### [address] Complete Blood Count Auto Di ffon 12-09-2020 Basophils (Bld) [#/Vol] 0.1 10*3/uL Normal 0.0-0.[address] [facility] Comment on above: Result Comment: PERF ORMED BY: [place] [address] PATHOLOGIST ABR[employer] W[employer] C[employer] OPERATOR SHYANN OLIVIER M.D. Performed By: #### B MP, HS TROP, CBC, PT, PTT, BNP #### [address] Basophils/100 WBC (Bld) 1.0 % Normal . [facility] Comment on above: Performed By: #### B MP, HS TROP, CBC, PT, PTT, BNP #### [address] Eosinophils (Bld) [#/Vol] 0.2 10*3/uL Normal 0.0-0.[address] [facility] Comment on above: Performed By: #### B MP, HS TROP, CBC, PT, PTT, BNP #### [address] Eosinophils/100 WBC (Bld) 2.8 % Normal . [facility] Comment on above: Performed By: #### B MP, HS TROP, CBC, PT, PTT, BNP #### [address] Erythrocyte distribution width (RBC) [Ratio] 15.0 % High 12.0-14.[address] [facility] Comment on above: Performed By: #### B MP, HS TROP, CBC, PT, PTT, BNP #### [address] Hematocrit (Bld) [Volume fraction] 41.9 % Normal 38.8-50.[address] [facility] Comment on above: Performed By: #### B MP, HS TROP, CBC, PT, PTT, BNP #### [address] Hemoglobin (Bld) [Mass/Vol] 14.2 g/dL Normal 13.0-17.[address] [facility] Comment on above: Performed By: #### B MP, HS TROP, CBC, PT, PTT, BNP #### [address] Lymphocytes (Bld) [#/Vol] 1.1 10*3/uL Normal 1.00-4.[address] [facility] Comment on above: Performed By: #### B MP, HS TROP, CBC, PT, PTT, BNP #### [address] Lymphocytes/100 WBC (Bld) 13.9 % Normal . [facility] Comment on above: Performed By: #### B MP, HS TROP, CBC, PT, PTT, BNP #### [address] MCH (RBC) [Entitic mass] 31.4 pg Normal 27.5-35.[address] [facility] Comment on above: Performed By: #### B MP, HS TROP, CBC, PT, PTT, BNP #### [address] MCV (RBC) [Entitic vol] 92.5 fL Normal 83.5-[address] [facility] Comment on above: Performed By: #### B MP, HS TROP, CBC, PT, PTT, BNP #### [address] Mean Corpuscular HGB Conc 33.9 g/dL Normal 32.5-35.[address] [facility] Comment on above: Performed By: #### B MP, HS TROP, CBC, PT, PTT, BNP #### [address] Monocytes (Bld) [#/Vol] 0.6 10*3/uL Normal 0.0-0.[address] [facility] Comment on above: Performed By: #### B MP, HS TROP, CBC, PT, PTT, BNP #### [address] [place] [address] [place] Monocytes/100 WBC (Bld) 8.3 % Normal . [facility] Comment on above: Performed By: #### B MP, HS TROP, CBC, PT, PTT, BNP #### [address] Neutrophils (Bld) [#/Vol] 5.8 10*3/uL Normal 1.8-7.[address] [facility] Comment on above: Performed By: #### B MP, HS TROP, CBC, PT, PTT, BNP #### [address] Neutrophils/100 WBC (Bld) 74.0 % Normal . [facility] Comment on above: Performed By: #### B MP, HS TROP, CBC, PT, PTT, BNP #### [address] Nucleated RBC/100 WBC (Bld) [Ratio] 0.0 % Normal 0-0.[address] [facility] Comment on above: Performed By: #### B MP, HS TROP, CBC, PT, PTT, BNP #### [address] Platelet mean volume (Bld) [Entitic vol] 8.0 fL Normal 6.6-10.[address] [facility] Comment on above: Performed By: #### B MP, HS TROP, CBC, PT, PTT, BNP #### [place] [address] [place] Platelets (Bld) [#/Vol] 409 10*3/uL Normal 150-[address] [facility] Comment on above: Performed By: #### B MP, HS TROP, CBC, PT, PTT, BNP #### [place] [address] [place] RBC (Bld) [#/Vol] 4.53 10*6/uL Normal 3.90-5.60 [facility] Comment on above: Performed By: #### B MP, HS TROP, CBC, PT, PTT, BNP #### [address] [place] [address] [place] WBC (Bld) [#/Vol] 7.8 10*3/uL Normal 4.5-11.0 [facility] Comment on above: Performed By: #### B MP, HS TROP, CBC, PT, PTT, BNP #### [facility] [address] [place] [id number] [facility] Creatine Kinaseon 12-09-2020 CK [Catalytic activity/Vol] 128 U/L Normal 22-[address] [facility] Comment on above: Order Comment: get a ll labs @0315 per rn Performed By: #### B MP, HS TROP, CBC, PT, PTT, BNP #### [facility] [address] Creatinine Kinase MBon 12-09 CK.MB [Mass/Vol] 15.6 ng/mL High 0.6-6.3 [facility] Comment on above: Order Comment: get a ll labs @0315 per rn Performed By: #### B MP, HS TROP, CBC, PT, PTT, BNP #### [facility] [address] CKMB Relative Index 12.1 % High 0.00-2.50 [facility] Comment on above: Order Comment: get a ll labs @0315 per rn Performed By: #### B MP, HS TROP, CBC, PT, PTT, BNP #### [facility] [address] [place] [address] [place] ECG 12 lead ECGon 12-09-2020 ECG 12 lead ECG [facility] [address] Electrocardiograph Report Signed Patient: Vishal Duke MR#: [id number] : 1960 Acct:[id number] Age/Sex: 59 / M ADM Date: 12/08/20 Loc: Room: [address] [place] [address] Type: ADM IN Attending Dr: Leonardo Storey [...] By: MUS Dictated By: Giovana Fu DO 12/09/20815 Signed By: 12/09/20 [address] [facility] Magnesiumon 12-09-2020 Magnesium [Mass/Vol] 2.0 mg/dL Normal 1.6-2.6 [facility] Comment on above: Order Comment: Comme nt Add on to am Result Comment: PERF ORMED BY: [place] [address] PATHOLOGIST [employer] OPERATOR SHYANN OLIVIER M.D. Performed By: #### B MP, HS TROP, CBC, PT, PTT, BNP #### [facility] [address] [place] [address] Partial Thromboplastin Timeo n 12-09-2020 aPTT Coag (Bld) [Time] 37.7 s High 25.1-36.[address] [facility] Comment on above: Result Comment: PERF ORMED BY: [place] [address] PATHOLOGIST [employer]IVE [employer]TER OPERATOR SHYANN OLIVIER M.D. Performed By: #### B MP, HS TROP, CBC, PT, PTT, BNP #### [facility] [address] [place], [place] [id number] [place] Prothrombin Time INRon 12-09 INR Coag (PPP) [Relative time] 1.2 {INR} Normal [facility] Comment on above: Result Comment: INR [...] HS TROP, CBC, PT, PTT, BNP #### [facility] [address] PT Coag (PPP) [Time] 13.8 s High 9.0-12.9 [facility] Comment on above: Performed By: #### B MP, HS TROP, CBC, PT, PTT, BNP #### [address] Troponin I High Sensitivityo n 12-09-2020 Troponin I High Sensitivity 1641 pg/mL Off scale high 0-[address] [facility] Comment on above: Order Comment: * RN to call lab when pt returns hko Result Comment: PERF ORMED BY: [place] [address] PATHOLOGIST A[employer]IVE [employer] OPERATOR SHYANN OLIVIER M.D. Performed By: #### B MP, HS TROP, CBC, PT, PTT, BNP #### [place] [address] [place] Troponin I High Sensitivity 2472 pg/mL Off scale high 0-[address] [facility] Comment on above: Order Comment: Comme nt during code blue Result Comment: PERF ORMED BY: [place] [address] PATHOLOGIST A[employer]TER OPERATOR SHYANN OLIVIER M.D. Performed By: #### B MP, HS TROP, CBC, PT, PTT, BNP #### [address] Troponin I High Sensitivity 1363 pg/mL Off scale high 0-[address] [facility] Comment on above: Order Comment: get a ll labs @0315 per rn Result Comment: PERF ORMED BY: [place] [id number] PATHOLOGIST A[employer] OPERATOR SHYANN OLIVIER M.D. Performed By: #### B MP, HS TROP, CBC, PT, PTT, BNP #### [address] B-Type Natriuretic Peptideon 12-08-2020 Natriuretic peptide B (Bld) [Mass/Vol] 199.0 pg/mL High 5-[address] [facility] Comment on above: Result Comment: PERF ORMED BY: [place] [address] PATHOLOGIST A[employer]TER OPERATOR SHYANN OLIVIER M.D. Performed By: #### B MP, HS TROP, CBC, PT, PTT, BNP #### [address] Basic Metabolic Panelon 11-16 Calcium [Mass/Vol] 10.1 mg/dL Normal 8.2-10.2 [facility] Comment on above: Performed By: #### B MP, HS TROP, CBC, PT, PTT, BNP #### [address] Chloride [Moles/Vol] 101 mmol/L Normal 95-114 [facility] Comment on above: Performed By: #### B MP, HS TROP, CBC, PT, PTT, BNP #### [address] CO2 [Moles/Vol] 23.2 mmol/L Normal 22.0-30.0 [facility] Comment on above: Performed By: #### B MP, HS TROP, CBC, PT, PTT, BNP #### [address] Creatinine [Mass/Vol] 1.15 mg/dL Normal 0.64-1.[address] [facility] Comment on above: Performed By: #### B MP, HS TROP, CBC, PT, PTT, BNP #### [address] Creatinine Clr Calc Pharmacy 81.[address] [facility] Comment on above: Result Comment: PERF ORMED BY: [place] [address] PATHOLOGIST A[employer] C[employer] OPERATOR SHYANN OLIVIER M.D. Performed By: #### B MP, HS TROP, CBC, PT, PTT, BNP #### [address] Estimated GFR ( Nata > [address] [facility] Comment on above: Result Comment: GFR estimated reference range: According to KDOQI guidelines, <60 ml/min/1.73m2 is sufficient to diagnose a patient with chronic kidney disease. Performed By: #### B MP, HS TROP, CBC, PT, PTT, BNP #### [address] Estimated GFR (Non- Am > [address] [facility] Comment on above: Performed By: #### B MP, HS TROP, CBC, PT, PTT, BNP #### [address] Glucose [Mass/Vol] 153 mg/dL High 70-100 [facility] Comment on above: Result Comment: [place] Glucose Reference Range is dependent on time and content of last meal. Glucose of more than 200 mg/dL in a nonstressed, ambulatory subject supports the diagnosis of Diabetes Mellitus. ADA recommended reference range Performed By: #### B MP, HS TROP, CBC, PT, PTT, BNP #### [address] Potassium [Moles/Vol] 4.5 mmol/L Normal 3.5-5.[address] [facility] Comment on above: Performed By: #### B MP, HS TROP, CBC, PT, PTT, BNP #### [address] Sodium [Moles/Vol] 139 mmol/L Normal 136-146 [facility] Comment on above: Performed By: #### B MP, HS TROP, CBC, PT, PTT, BNP #### [address] Urea nitrogen [Mass/Vol] 15 mg/dL Normal 9-[address] [facility] Comment on above: Performed By: #### B MP, HS TROP, CBC, PT, PTT, BNP #### [facility] [address] [place] [id number] [facility] COVID-19 Antigenon 1 COVID-19 Antigen Healthcare Worker?: [...] its performance Tessa Disclaimer characteristic determined by What's Trend[employer] and Tessa Disclaimer validated at [facility]. This Tessa Disclaimer test has not [...] is terminated or revoked sooner. PERFORMED BY: [place] [address] PATHOLOGIST ABR[employer]IVE W[employer] C[employer]TER OPERATOR SHYANN OLIVIER M.D. Normal [facility] Comment on above: Performed By: #### S [place]CTOR[place], COVID-19 [place], COVID 19 [facility] #### [address] [facility] SARS-CoV-2 (COVID-19) RNA ADELINE+probe Ql (Unsp spec) Negative Normal Negative [facility] Comment on above: Order Comment: Healt hcare Worker?: N Result Comment: Testing for SARS-CoV-2 by RT-PCR This test was developed and its performance characteristics determined by [employer] (BD) and validated at the [facility]. This test has not been FDA [...] is terminated or revoked sooner. PERFORMED BY: [place] [address] PATHOLOGIST ABRASIVE W[employer] J[employer] C[employer]TER OPERATOR SHYANN OLIVIER M.D. Performed By: #### B MP, HS TROP, CBC, PT, PTT, BNP #### [address] abdomen pelvis wo conon 0 12-08-2020 CT abdomen pelvis wo con [facility] Main [place] [address] [place] [address] CT Scan Report Signed Patient: Vishal Duke MR#: [id number] : 1960 Acct:[id number] Age/Sex: 59 / M ADM Date: 12/08/20 Loc: ER Room: Type: [facility] ER Attending Dr: Ordering Provider: Irwin Lutz [...] Biju Ag M.D.12/08/2020 11:16 AM Dictation Location: [place] [address] Transcribed By: [facility] 12/08/20 1116 Dictated By: Biju Ag MD 12/08/20 1102 Signed By: 12/08/20 [address] [facility] Complete Blood Count Auto Di ffon 12-08-2020 Basophils (Bld) [#/Vol] 0.1 10*3/uL Normal 0.0-0.[address] [facility] Comment on above: Result Comment: PERF ORMED BY: [place] [address] PATHOLOGIST A[employer] OPERATOR SHYANN OLIVIER M.D. Performed By: #### B MP, HS TROP, CBC, PT, PTT, BNP #### [address] Basophils/100 WBC (Bld) 0.6 % Normal . [facility] Comment on above: Performed By: #### B MP, HS TROP, CBC, PT, PTT, BNP #### [address] Eosinophils (Bld) [#/Vol] 0.2 10*3/uL Normal 0.0-0.[address] [facility] Comment on above: Performed By: #### B MP, HS TROP, CBC, PT, PTT, BNP #### [address] Eosinophils/100 WBC (Bld) 2.5 % Normal . [facility] Comment on above: Performed By: #### B MP, HS TROP, CBC, PT, PTT, BNP #### [address] Erythrocyte distribution width (RBC) [Ratio] 15.2 % High 12.0-14.[address] [facility] Comment on above: Performed By: #### B MP, HS TROP, CBC, PT, PTT, BNP #### [address] Hematocrit (Bld) [Volume fraction] 41.7 % Normal 38.8-50.[address] [facility] Comment on above: Performed By: #### B MP, HS TROP, CBC, PT, PTT, BNP #### [address] Hemoglobin (Bld) [Mass/Vol] 14.0 g/dL Normal 13.0-17.[address] [facility] Comment on above: Performed By: #### B MP, HS TROP, CBC, PT, PTT, BNP #### [address] [place] [address] [place] Lymphocytes (Bld) [#/Vol] 0.9 10*3/uL Low 1.00-4.[address] [facility] Comment on above: Performed By: #### B MP, HS TROP, CBC, PT, PTT, BNP #### [address] Lymphocytes/100 WBC (Bld) 10.9 % Normal . [facility] Comment on above: Performed By: #### B MP, HS TROP, CBC, PT, PTT, BNP #### [address] MCH (RBC) [Entitic mass] 31.5 pg Normal 27.5-35.[address] [facility] Comment on above: Performed By: #### B MP, HS TROP, CBC, PT, PTT, BNP #### [address] MCV (RBC) [Entitic vol] 93.7 fL Normal 83.5-[address] [facility] Comment on above: Performed By: #### B MP, HS TROP, CBC, PT, PTT, BNP #### [address] Mean Corpuscular HGB Conc 33.6 g/dL Normal 32.5-35.[address] [facility] Comment on above: Performed By: #### B MP, HS TROP, CBC, PT, PTT, BNP #### [address] Monocytes (Bld) [#/Vol] 0.6 10*3/uL Normal 0.0-0.[address] [facility] Comment on above: Performed By: #### B MP, HS TROP, CBC, PT, PTT, BNP #### [address] Monocytes/100 WBC (Bld) 7.4 % Normal . [facility] Comment on above: Performed By: #### B MP, HS TROP, CBC, PT, PTT, BNP #### [address] Neutrophils (Bld) [#/Vol] 6.7 10*3/uL Normal 1.8-7.[address] [facility] Comment on above: Performed By: #### B MP, HS TROP, CBC, PT, PTT, BNP #### [facility] [address] Neutrophils/100 WBC (Bld) 78.6 % Normal . [facility] Comment on above: Performed By: #### B MP, HS TROP, CBC, PT, PTT, BNP #### [address] Nucleated RBC/100 WBC (Bld) [Ratio] 0.1 % Normal 0-0.[address] [facility] Comment on above: Performed By: #### B MP, HS TROP, CBC, PT, PTT, BNP #### [address] Platelet mean volume (Bld) [Entitic vol] 8.2 fL Normal 6.6-10.[address] [facility] Comment on above: Performed By: #### B MP, HS TROP, CBC, PT, PTT, BNP #### [place] [address] [place] Platelets (Bld) [#/Vol] 414 10*3/uL Normal 150-[address] [facility] Comment on above: Performed By: #### B MP, HS TROP, CBC, PT, PTT, BNP #### [place] [address] [place] RBC (Bld) [#/Vol] 4.44 10*6/uL Normal 3.90-5.60 [facility] Comment on above: Performed By: #### B MP, HS TROP, CBC, PT, PTT, BNP #### [place] [address] [place] WBC (Bld) [#/Vol] 8.5 10*3/uL Normal 4.5-11.0 [facility] Comment on above: Performed By: #### B MP, HS TROP, CBC, PT, PTT, BNP #### [address] Basophils (Bld) [#/Vol] 0.1 10*3/uL Normal 0.0-0.[address] [facility] Comment on above: Result Comment: PERF ORMED BY: [place] [address] PATHOLOGIST ABR[employer]IVE W[employer] OPERATOR SHYANN OLIVIER M.D. Performed By: #### B MP, HS TROP, CBC, PT, PTT, BNP #### [address] Basophils/100 WBC (Bld) 0.7 % Normal . [facility] Comment on above: Performed By: #### B MP, HS TROP, CBC, PT, PTT, BNP #### [address] Eosinophils (Bld) [#/Vol] 0.2 10*3/uL Normal 0.0-0.[address] [facility] Comment on above: Performed By: #### B MP, HS TROP, CBC, PT, PTT, BNP #### [address] Eosinophils/100 WBC (Bld) 1.8 % Normal . [facility] Comment on above: Performed By: #### B MP, HS TROP, CBC, PT, PTT, BNP #### [address] Erythrocyte distribution width (RBC) [Ratio] 15.5 % High 12.0-14.[address] [facility] Comment on above: Performed By: #### B MP, HS TROP, CBC, PT, PTT, BNP #### [address] Hematocrit (Bld) [Volume fraction] 42.0 % Normal 38.8-50.[address] [facility] Comment on above: Performed By: #### B MP, HS TROP, CBC, PT, PTT, BNP #### [address] Hemoglobin (Bld) [Mass/Vol] 14.2 g/dL Normal 13.0-17.[address] [facility] Comment on above: Performed By: #### B MP, HS TROP, CBC, PT, PTT, BNP #### [address] Lymphocytes (Bld) [#/Vol] 0.8 10*3/uL Low 1.00-4.[address] [facility] Comment on above: Performed By: #### B MP, HS TROP, CBC, PT, PTT, BNP #### [address] Lymphocytes/100 WBC (Bld) 7.7 % Normal . [facility] Comment on above: Performed By: #### B MP, HS TROP, CBC, PT, PTT, BNP #### [address] MCH (RBC) [Entitic mass] 31.3 pg Normal 27.5-35.[address] [facility] Comment on above: Performed By: #### B MP, HS TROP, CBC, PT, PTT, BNP #### [address] MCV (RBC) [Entitic vol] 92.4 fL Normal 83.5-[address] [facility] Comment on above: Performed By: #### B MP, HS TROP, CBC, PT, PTT, BNP #### [address] Mean Corpuscular HGB Conc 33.9 g/dL Normal 32.5-35.[address] [facility] Comment on above: Performed By: #### B MP, HS TROP, CBC, PT, PTT, BNP #### [address] Monocytes (Bld) [#/Vol] 0.8 10*3/uL Normal 0.0-0.[address] [facility] Comment on above: Performed By: #### B MP, HS TROP, CBC, PT, PTT, BNP #### [address] Monocytes/100 WBC (Bld) 7.5 % Normal . [facility] Comment on above: Performed By: #### B MP, HS TROP, CBC, PT, PTT, BNP #### [facility] [address] Neutrophils (Bld) [#/Vol] 9.0 10*3/uL High 1.8-7.[address] [facility] Comment on above: Performed By: #### B MP, HS TROP, CBC, PT, PTT, BNP #### [facility] [address] Neutrophils/100 WBC (Bld) 82.3 % Normal . [facility] Comment on above: Performed By: #### B MP, HS TROP, CBC, PT, PTT, BNP #### [address] Nucleated RBC/100 WBC (Bld) [Ratio] 0.1 % Normal 0-0.[address] [facility] Comment on above: Performed By: #### B MP, HS TROP, CBC, PT, PTT, BNP #### [facility] [address] Platelet mean volume (Bld) [Entitic vol] 7.9 fL Normal 6.6-10.[address] [facility] Comment on above: Performed By: #### B MP, HS TROP, CBC, PT, PTT, BNP #### [address] Platelets (Bld) [#/Vol] 463 10*3/uL High 150-[address] [facility] Comment on above: Performed By: #### B MP, HS TROP, CBC, PT, PTT, BNP #### [facility] [address] [place] [address] [place] RBC (Bld) [#/Vol] 4.54 10*6/uL Normal 3.90-5.60 [facility] Comment on above: Performed By: #### B MP, HS TROP, CBC, PT, PTT, BNP #### [place] [address] [place] WBC (Bld) [#/Vol] 11.0 10*3/uL Normal 4.5-11.0 [facility] Comment on above: Performed By: #### B MP, HS TROP, CBC, PT, PTT, BNP #### [place] [address] [place] Creatine Kinaseon 12-08-2020 CK [Catalytic activity/Vol] 78 U/L Normal 22-[address] [facility] Comment on above: Performed By: #### B MP, HS TROP, CBC, PT, PTT, BNP #### [address] CK [Catalytic activity/Vol] 67 U/L Normal 22-[address] [facility] Comment on above: Performed By: #### B MP, HS TROP, CBC, PT, PTT, BNP #### [address] CK [Catalytic activity/Vol] 58 U/L Normal 22-[address] [facility] Comment on above: Performed By: #### B MP, HS TROP, CBC, PT, PTT, BNP #### [place] [address] [place] Creatinine Kinase MBon 12-08 CK.MB [Mass/Vol] 6.3 ng/mL Normal 0.6-6.3 [facility] Comment on above: Performed By: #### B MP, HS TROP, CBC, PT, PTT, BNP #### [place] [address] [place] CKMB Relative Index 8.0 % High 0.00-2.50 [facility] Comment on above: Performed By: #### B MP, HS TROP, CBC, PT, PTT, BNP #### [place] [address] [place] CK.MB [Mass/Vol] 4.2 ng/mL Normal 0.6-6.3 [facility] Comment on above: Performed By: #### B MP, HS TROP, CBC, PT, PTT, BNP #### [place] [address] [place] CKMB Relative Index 6.2 % High 0.00-2.50 [facility] Comment on above: Performed By: #### B MP, HS TROP, CBC, PT, PTT, BNP #### [facility] [address] CK.MB [Mass/Vol] 3.7 ng/mL Normal 0.6-6.3 [facility] Comment on above: Performed By: #### B MP, HS TROP, CBC, PT, PTT, BNP #### [facility] [address] CKMB Relative Index 6.3 % High 0.00-2.50 [facility] Comment on above: Performed By: #### B MP, HS TROP, CBC, PT, PTT, BNP #### [facility] [address] ECG 12 lead ECGon 12-08-2020 ECG 12 lead ECG [facility] Main [place] [address] [place] [address] Electrocardiograph Report Signed Patient: Vishal Duke MR#: [id number] : 1960 Acct:[id number] Age/Sex: 59 / M ADM Date: 12/08/20 Loc: Room: [address] [place] [address] Type: ADM INOo Attending Dr: Daniel Prabhakar [...] Lateral leads Confirmed by IRWIN LUTZ DO ([id number]) on 12/09/2020 6:02:40 AM Referred By: Electronically Signed By:IRWIN LUTZ DO Transcribed By: MUS Dictated By: Irwin Lutz, 12/08/20 0950 Signed By: 12/09/[address] [facility] Partial Thromboplastin Timeo n 12-08-2020 aPTT Coag (Bld) [Time] 131.9 s Off scale high 25.1-36.[address] [facility] Comment on above: Result Comment: Resu lts called at 1947 on 12/08/20 PERFORMED BY: [place] [address] PATHOLOGIST [employer] W[employer] CUTTER OPERATOR SHYANN OLIVIER M.D. Performed By: #### B MP, HS TROP, CBC, PT, PTT, BNP #### [facility] [address] [place] [address] [facility] aPTT Coag (Bld) [Time] 36.2 s Normal 25.1-36.[address] [facility] Comment on above: Result Comment: PERF ORMED BY: [address] [address] PATHOLOGIST ABR[employer]IVE W[employer] J[employer] CUTTER OPERATOR SHYANN OLIVIER M.D. Performed By: #### B MP, HS TROP, CBC, PT, PTT, BNP #### [address] [address] [facility] Prothrombin Time INRon 12-08 INR Coag (PPP) [Relative time] 1.5 {INR} Normal [facility] Comment on above: Result Comment: INR [...] HS TROP, CBC, PT, PTT, BNP #### [facility] [address] [place] [address] [facility] PT Coag (PPP) [Time] 16.1 s High 9.0-12.9 [facility] Comment on above: Performed By: #### B MP, HS TROP, CBC, PT, PTT, BNP #### [facility] [address] INR Coag (PPP) [Relative time] 1.3 {INR} Normal [facility] Comment on above: Result Comment: INR [...] HS TROP, CBC, PT, PTT, BNP #### [address] PT Coag (PPP) [Time] 14.0 s High 9.0-12.9 [facility] Comment on above: Performed By: #### B MP, HS TROP, CBC, PT, PTT, BNP #### [address] Tessa Ag Negativeon 12-09-19 21 Tessa Ag Negative Negative Normal Negative [facility] Comment on above: Result Comment: This is a duplicate Tessa SARS Antigen (GISSEL) result to be used for statistical tracking purpose only. PERFORMED BY: [place] [address] PATHOLOGIST ABRASIVE WATER JET CUTTER OPERATOR SHYANN OLIVIER M.D. Performed By: #### S OFANGEEG, COVID-19 [place], COVID 19 [facility] [place] #### [address] Troponin I High Sensitivityo n 12-08-2020 Troponin I High Sensitivity 474 pg/mL Off scale high 0-[address] [facility] Comment on above: Result Comment: PERF ORMED BY: [place] [address] PATHOLOGIST ABRASIVE WATER JET CUTTER OPERATOR SHYANN OLIVIER M.D. Performed By: #### B MP, HS TROP, CBC, PT, PTT, BNP #### [place] [id number] [place] Troponin I High Sensitivity 317 pg/mL Off scale high 0-[address] [facility] Comment on above: Result Comment: PERF ORMED BY: [place] [address] PATHOLOGIST ABRASIVE WATER JET CUTTER OPERATOR SHYANN OLIVIER M.D. Performed By: #### B MP, HS TROP, CBC, PT, PTT, BNP #### [address] Troponin I High Sensitivity 183 pg/mL Off scale high 0-[address] [facility] Comment on above: Result Comment: Crit ical value result called at 1719 on 12/08/20 PERFORMED BY: [place] [address] PATHOLOGIST ABRASIVE WATER JET CUTTER OPERATOR SHYANN OLIVIER M.D. Performed By: #### B MP, HS TROP, CBC, PT, PTT, BNP #### [address] Troponin I High Sensitivity 49 pg/mL High 0-[address] [facility] Comment on above: Result Comment: PERF ORMED BY: [place] [address] PATHOLOGIST ABRASIVE WATER JET CUTTER OPERATOR SHYANN OLIVIER M.D. Performed By: #### B MP, HS TROP, CBC, PT, PTT, BNP #### [place] [id number] [facility] XR chest 1V portableon 12-08 XR chest 1V portable [facility] [place] [address] XRay Report Signed Patient: Vishal Duke MR#: [id number] : 1960 Acct:[id number] Age/Sex: 59 / M ADM Date: 12/08/20 Loc: ER Room: Type: [facility] ER Attending Dr: Ordering Provider: Irwin Lutz [...] Biju Ag M.D.12/08/2020 11:02 AM Dictation Location: [place] [address] Transcribed By: [facility] 12/08/20 1102 Dictated By: Biju Ag MD 12/08/20 1059 Signed By: 12/08/20 1102 [facility] TACROLIMUSon 12-04-2020 Tacrolimus (Bld) [Mass/Vol] 8.0 ng/mL Normal 5.0-20.0 [facility] Comment on above: Order Comment: Yes: Add to Previous draw if able Result Comment: The SANDHU TOOL POLISHING MACHINE OPERATOR Tacrolimus assay is a delayed one-step immunoassay for the quantitative determination of tacrolimus in human whole blood using the chemiluminescent microparticle immunoassay (CMIA) technology with flexible assay protocols, referred to as Chemiflex. Performed By: #### 2 5508, 60222, 20893, 70227, 73338 #### [facility] [address] [place] [address], [facility] TROPONIN-Ion 12-04-2020 Troponin I.cardiac [Mass/Vol] 0.03 ng/mL Normal 0.00-0.04 [facility] Comment on above: Order Comment: No: D o not add to previous draw Pt in bath room askme to come back Result Comment: REFE RENCE RANGES: 0.00 - 0.04 ng/ml NORMAL 0.05 - 0.50 ng/ml INDETERMINATE > 0.50 ng/ml CONSISTENT WITH AN M.I. Performed By: #### 3 5200 #### [facility] [address] Order Comment: No: D o not add to previous draw Performed By: #### 2 5508, 85047, 37093, 79980, 30822 #### [facility] [address] Troponin I.cardiac [Mass/Vol] 0.03 ng/mL Normal 0.00-0.04 [facility] Comment on above: Result Comment: REFE RENCE RANGES: 0.00 - 0.04 ng/ml NORMAL 0.05 - 0.50 ng/ml INDETERMINATE > 0.50 ng/ml CONSISTENT WITH AN M.I. Performed By: #### 2 5508, 16500, 90180, 92655, 92609 #### [facility] [address] [place] [address], [facility] ktx basic metabolic panelon 12-04-2020 Calcium [Mass/Vol] 8.9 mg/dL Normal 8.6-10.3 [facility] Comment on above: Performed By: #### 2 5508, 00313, 44378, 56569, 46848 #### [facility] [address] [place] [address], [facility] Chloride [Moles/Vol] 106 mmol/L Normal 98-107 [facility] Comment on above: Performed By: #### 2 5508, 53895, 00280, 57727, 84442 #### [facility] [address] [place] [address], [facility] CO2 [Moles/Vol] 19 mmol/L Low 21-31 [facility] Comment on above: Performed By: #### 2 5508, 90119, 45175, 47698, 68991 #### [facility] [address] [place] [id number], [facility] Creatinine [Mass/Vol] 0.82 mg/dL Normal 0.70-1.30 [facility] Comment on above: Performed By: #### 2 5508, 16324, 31436, 33027, 80609 #### [facility] [address] [place] [id number], [facility] GFR/1.73 sq M.predicted among blacks MDRD (S/P/Bld) [Vol rate/Area] mL/min/{1.73_m2} Normal >60 [facility] Comment on above: Performed By: #### 2 5508, 40501, 98346, 33804, 69885 #### [facility] [address] [place] [address], [facility] GFR/1.73 sq M.predicted among non-blacks MDRD (S/P/Bld) [Vol rate/Area] mL/min/{1.73_m2} Normal >60 [facility] Comment on above: Performed By: #### 2 5508, 39215, 55314, 02491, 11545 #### [facility] [address] [place] [address], [facility] Glucose [Mass/Vol] 127 mg/dL High 70-100 [facility] Comment on above: Performed By: #### 2 5508, 51083, 04228, 93666, 01470 #### [facility] [address] [place] [id number], [place] Potassium [Moles/Vol] 3.9 mmol/L Normal 3.5-5.1 [facility] Comment on above: Performed By: #### 2 5508, 10572, 56329, 36959, 43933 #### [facility] [address] [place] [address], [place] Sodium [Moles/Vol] 136 mmol/L Normal 136-145 [facility] Comment on above: Performed By: #### 2 5508, 19873, 98835, 42273, 50124 #### [facility] [address] [place] [address], [facility] Urea nitrogen [Mass/Vol] 10 mg/dL Normal 7-25 [facility] Comment on above: Performed By: #### 2 5508, 98792, 42463, 94076, 49306 #### [facility] [address] [place] [address], [facility] ktx cbc complete blood count on 12-04-2020 Erythrocyte distribution width (RBC) [Ratio] 14.6 % Normal 11.5-15.0 [facility] Comment on above: Performed By: #### 6 1405 #### [facility] [address] [address], [facility] Hematocrit (Bld) [Volume fraction] 38.7 % Low 39.0-50.0 [facility] Comment on above: Performed By: #### 6 1405 #### [facility] [address] [facility] [place] [address], [facility] Hemoglobin (Bld) [Mass/Vol] 12.8 g/dL Low 13.0-17.0 [facility] Comment on above: Performed By: #### 6 1405 #### [facility] [address] [place] [address], [facility] MCH (RBC) [Entitic mass] 31.3 pg Normal 27.0-33.0 [facility] Comment on above: Performed By: #### 6 1405 #### [facility] [address] [place] [address], [facility] MCHC (RBC) [Mass/Vol] 33.1 g/dL Normal 32.0-35.0 [facility] Comment on above: Performed By: #### 6 1405 #### [facility] [address] [place] [address], [facility] MCV (RBC) [Entitic vol] 94.6 fL Normal 82.0-98.0 [facility] Comment on above: Performed By: #### 6 1405 #### [facility] [address] [place] [address], [facility] Nucleated RBC/100 WBC (Bld) [Ratio] 0 % Normal 0-0 [facility] Comment on above: Performed By: #### 6 1405 #### [facility] [address] [place] [address], [facility] PLAT CNT 224 10*3/uL Normal 150-400 [facility] Comment on above: Performed By: #### 6 1405 #### [facility] [address] [facility] [place] [address], [facility] RBC (Bld) [#/Vol] 4.09 10*6/uL Low 4.20-5.70 [facility] Comment on above: Performed By: #### 6 1405 #### [facility] [address] [facility] [place] [address], [facility] WBC (Bld) [#/Vol] 12.30 10*3/uL High 4.00-10.60 [facility] Comment on above: Performed By: #### 6 1405 #### [facility] [address] [address], [facility] ktx magnesium bloodon 2020 Magnesium [Mass/Vol] 1.6 mg/dL Low 1.9-2.7 [facility] Comment on above: Performed By: #### 2 5508, 61496, 33651, 92581, 27642 #### [facility] [address] [place] [address], [facility] ktx phosphoruson 12-04-2020 Phosphate [Mass/Vol] 2.4 mg/dL Low 2.5-5.0 [facility] Comment on above: Performed By: #### 2 5508, 93126, 45195, 41448, 54134 #### [facility] [address] [place] [address], [facility] TACROLIMUSon 12-03-2020 Tacrolimus (Bld) [Mass/Vol] 9.1 ng/mL Normal 5.0-20.0 [facility] Comment on above: Order Comment: Yes: Add to Previous draw if able Result Comment: The SANDHU TOOL POLISHING MACHINE OPERATOR Tacrolimus assay is a delayed one-step immunoassay for the quantitative determination of tacrolimus in human whole blood using the chemiluminescent microparticle immunoassay (CMIA) technology with flexible assay protocols, referred to as Chemiflex. Performed By: #### 2 5508, 92808, 73011, 17713, 86577 #### [facility] [address] [place] [address], [facility] ktx basic metabolic panelon 12-03-2020 Calcium [Mass/Vol] 9.5 mg/dL Normal 8.6-10.3 [facility] Comment on above: Performed By: #### 2 5508, 63519, 03390, 64689, 82781 #### [facility] [address] [place] [address], [facility] Chloride [Moles/Vol] 102 mmol/L Normal 98-107 [facility] Comment on above: Performed By: #### 2 5508, 65821, 60079, 36353, 39469 #### [facility] [address] [place] [address], [place] CO2 [Moles/Vol] 22 mmol/L Normal 21-31 [facility] Comment on above: Performed By: #### 2 5508, 42110, 19739, 67125, 22164 #### [facility] [address] [place] [address], [place] Creatinine [Mass/Vol] 0.88 mg/dL Normal 0.70-1.30 [facility] Comment on above: Performed By: #### 2 5508, 67159, 73943, 60533, 49801 #### [facility] [address] [place] [address], [place] GFR/1.73 sq M.predicted among blacks MDRD (S/P/Bld) [Vol rate/Area] mL/min/{1.73_m2} Normal >60 [facility] Comment on above: Performed By: #### 2 5508, 84226, 30055, 78549, 89675 #### [facility] [address] [place] [address], [place] GFR/1.73 sq M.predicted among non-blacks MDRD (S/P/Bld) [Vol rate/Area] mL/min/{1.73_m2} Normal >60 [facility] Comment on above: Performed By: #### 2 5508, 18547, 10534, 92118, 86150 #### [facility] [address] [place] [address], [place] Glucose [Mass/Vol] 120 mg/dL High 70-100 [facility] Comment on above: Performed By: #### 2 5508, 06023, 49444, 40568, 17315 #### [facility] [address] [place] [address], [place] Potassium [Moles/Vol] 3.8 mmol/L Normal 3.5-5.1 [facility] Comment on above: Performed By: #### 2 5508, 70143, 68013, 45103, 90925 #### [facility] [address] [place] [address], [place] Sodium [Moles/Vol] 134 mmol/L Low 136-145 [facility] Comment on above: Performed By: #### 2 5508, 43277, 30436, 12581, 69847 #### [facility] [address] [place] [address], [place] Urea nitrogen [Mass/Vol] 9 mg/dL Normal 7-25 [facility] Comment on above: Performed By: #### 2 5508, 99586, 08193, 86548, 78856 #### [facility] [address] [place] [address], [place] ktx cbc complete blood count on 12-03-2020 Erythrocyte distribution width (RBC) [Ratio] 14.6 % Normal 11.5-15.0 [facility] Comment on above: Performed By: #### 6 1405 #### [facility] [address] [address], [facility] Hematocrit (Bld) [Volume fraction] 40.4 % Normal 39.0-50.0 [facility] Comment on above: Performed By: #### 6 1405 #### [facility] [address] [facility] [place] [address], [facility] Hemoglobin (Bld) [Mass/Vol] 13.6 g/dL Normal 13.0-17.0 [facility] Comment on above: Performed By: #### 6 1405 #### [facility] [address] [facility] [place] [address], [facility] MCH (RBC) [Entitic mass] 31.1 pg Normal 27.0-33.0 [facility] Comment on above: Performed By: #### 6 1405 #### [facility] [address] [facility]. [address] MCHC (RBC) [Mass/Vol] 33.7 g/dL Normal 32.0-35.0 [facility] Comment on above: Performed By: #### 6 1405 #### [facility] [address] [facility] [place] [address], [facility] MCV (RBC) [Entitic vol] 92.4 fL Normal 82.0-98.0 [facility] Comment on above: Performed By: #### 6 1405 #### [facility] [address] [facility] [place] [address], [facility] Nucleated RBC/100 WBC (Bld) [Ratio] 0 % Normal 0-0 [facility] Comment on above: Performed By: #### 6 1405 #### [facility] [address] [address], [facility] PLAT CNT 240 10*3/uL Normal 150-400 [facility] Comment on above: Performed By: #### 6 1405 #### [facility] [address] [place] [address], [facility] RBC (Bld) [#/Vol] 4.37 10*6/uL Normal 4.20-5.70 [facility] Comment on above: Performed By: #### 6 1405 #### [facility] [address] [facility] [place] [address], [facility] WBC (Bld) [#/Vol] 12.42 10*3/uL High 4.00-10.60 [facility] Comment on above: Performed By: #### 6 1405 #### [facility] [address] [facility] [place] [address], [facility] ktx magnesium bloodon 2020 Magnesium [Mass/Vol] 2.1 mg/dL Normal 1.9-2.7 [facility] Comment on above: Performed By: #### 2 5508, 45699, 02607, 01269, 59294 #### [facility] [address] [place] [address], [facility] ktx phosphoruson 12-03-2020 Phosphate [Mass/Vol] 3.3 mg/dL Normal 2.5-5.0 [facility] Comment on above: Performed By: #### 2 5508, 31665, 93188, 70512, 40614 #### [facility] [address] [place] [address], [facility] BASIC METABOLIC PANELon 11-15 Calcium [Mass/Vol] 10.1 mg/dL Normal 8.6-10.3 [facility] Comment on above: Order Comment: No: D o not add to previous draw Performed By: #### 2 5508, 16437, 02137, 06007, 44024 #### [facility] [address] [place] [address], [place] Chloride [Moles/Vol] 97 mmol/L Low 98-107 [facility] Comment on above: Order Comment: No: D o not add to previous draw Performed By: #### 2 5508, 65706, 15938, 32759, 52591 #### [facility] [address] [place] [address], [place] CO2 [Moles/Vol] 27 mmol/L Normal 21-31 [facility] Comment on above: Order Comment: No: D o not add to previous draw Performed By: #### 2 5508, 13519, 42289, 53961, 42999 #### [facility] [address] [place] [address], [place] Creatinine [Mass/Vol] 1.12 mg/dL Normal 0.70-1.30 [facility] Comment on above: Order Comment: No: D o not add to previous draw Performed By: #### 2 5508, 96367, 63962, 96303, 60891 #### [facility] [address] [place] [address], [place] GFR/1.73 sq M.predicted among blacks MDRD (S/P/Bld) [Vol rate/Area] mL/min/{1.73_m2} Normal >60 [facility] Comment on above: Order Comment: No: D o not add to previous draw Performed By: #### 2 5508, 68283, 70078, 36314, 80273 #### [facility] [address] [place] [address], [place] GFR/1.73 sq M.predicted among non-blacks MDRD (S/P/Bld) [Vol rate/Area] mL/min/{1.73_m2} Normal >60 [facility] Comment on above: Order Comment: No: D o not add to previous draw Performed By: #### 2 5508, 96065, 68485, 02301, 69253 #### [facility] [address] [place] [address], [place] Glucose [Mass/Vol] 124 mg/dL High 70-100 [facility] Comment on above: Order Comment: No: D o not add to previous draw Performed By: #### 2 5508, 50455, 73058, 86250, 78952 #### [facility] [address] [place] [address], [facility] Potassium [Moles/Vol] 4.4 mmol/L Normal 3.5-5.1 [facility] Comment on above: Order Comment: No: D o not add to previous draw Performed By: #### 2 5508, 19119, 55155, 20003, 74386 #### [facility] [address] [place] [address], [place] Sodium [Moles/Vol] 133 mmol/L Low 136-145 [facility] Comment on above: Order Comment: No: D o not add to previous draw Performed By: #### 2 5508, 19392, 13964, 01009, 08426 #### [facility] [address] [place] [id number], [facility] Urea nitrogen [Mass/Vol] 17 mg/dL Normal 7-25 [facility] Comment on above: Order Comment: No: D o not add to previous draw Performed By: #### 2 5508, 89546, 08298, 42453, 49047 #### [facility] [address] [place] [id number], [facility] CBC COMPLETE BLOOD COUNTon 0 - Erythrocyte distribution width (RBC) [Ratio] 14.7 % Normal 11.5-15.0 [facility] Comment on above: Order Comment: No: D o not add to previous draw Performed By: #### 6 1405 #### [facility] [address] [place] [address], [place] Hematocrit (Bld) [Volume fraction] 43.7 % Normal 39.0-50.0 [facility] Comment on above: Order Comment: No: D o not add to previous draw Performed By: #### 6 1405 #### [facility] [address] [place] [address], [facility] Hemoglobin (Bld) [Mass/Vol] 14.1 g/dL Normal 13.0-17.0 [facility] Comment on above: Order Comment: No: D o not add to previous draw Performed By: #### 6 1405 #### [facility] [address] [place] [address], [facility] MCH (RBC) [Entitic mass] 30.8 pg Normal 27.0-33.0 [facility] Comment on above: Order Comment: No: D o not add to previous draw Performed By: #### 6 1405 #### [facility] [address] [facility] [address] MCHC (RBC) [Mass/Vol] 32.3 g/dL Normal 32.0-35.0 [facility] Comment on above: Order Comment: No: D o not add to previous draw Performed By: #### 6 1405 #### [facility] [address] [facility] [address], [facility] MCV (RBC) [Entitic vol] 95.4 fL Normal 82.0-98.0 [facility] Comment on above: Order Comment: No: D o not add to previous draw Performed By: #### 6 1405 #### [facility] [address] [facility] [address] Nucleated RBC/100 WBC (Bld) [Ratio] 0 % Normal 0-0 [facility] Comment on above: Order Comment: No: D o not add to previous draw Performed By: #### 6 1405 #### [facility] [address] [facility] [place] [address], [facility] PLAT CNT 257 10*3/uL Normal 150-400 [facility] Comment on above: Order Comment: No: D o not add to previous draw Performed By: #### 6 1405 #### [facility] [address] [place] [address], [facility] RBC (Bld) [#/Vol] 4.58 10*6/uL Normal 4.20-5.70 [facility] Comment on above: Order Comment: No: D o not add to previous draw Performed By: #### 6 1405 #### [facility] [address] [place] [address], [facility] WBC (Bld) [#/Vol] 13.96 10*3/uL High 4.00-10.60 [facility] Comment on above: Order Comment: No: D o not add to previous draw Performed By: #### 6 1405 #### [facility] [address] [place] [address], [facility] MAGNESIUM BLOODon 12-02-2020 Magnesium [Mass/Vol] 1.5 mg/dL Low 1.9-2.7 [facility] Comment on above: Order Comment: No: D o not add to previous draw Performed By: #### 2 5508, 73980, 88548, 69146, 30997 #### [facility] [address] [place] [address], [facility] PHOSPHORUS BLOODon 1 Phosphate [Mass/Vol] 3.8 mg/dL Normal 2.5-5.0 [facility] Comment on above: Order Comment: No: D o not add to previous draw Performed By: #### 2 5508, 32247, 19961, 39452, 83111 #### [facility] [address] [place] [address], [facility] PROTHROMBIN TIMEon 1 INR Coag (PPP) [Relative time] 1.12 {INR} Normal 0.91-1.16 [facility] Comment on above: Order Comment: No: [...] CHEST 1995;[id number]. Performed By: #### 5 6101 ####[facility] PT Coag (PPP) [Time] 14.4 s Normal 12.3-14.8 [facility] Comment on above: Order Comment: No: D o not add to previous draw Result Comment: ALL RESULTS MUST BE INTERPRETED WITH RESPECT TO BLOOD DRAWING ARTIFACT OR DILUTION ERROR OF ANTICOAGULANT AT THE TIME OF SAMPLING. Performed By: #### 5 6101 ####[facility] CBC W/DIFFon 12-01-2020 ABS IMM GRANS 0.1 10*3/uL Normal 0.0-0.2 [facility] Comment on above: Performed By: #### 6 1405 #### [facility] [address] [place] [address], [facility] ABS NEUTROPHILS 12.0 10*3/uL High 1.6-7.6 [facility] Comment on above: Performed By: #### 6 1405 #### [facility] [address] [place] [address], [facility] Basophils (Bld) [#/Vol] 0.1 10*3/uL Normal 0.0-0.2 [facility] Comment on above: Performed By: #### 6 1405 #### [facility] [address] [place] [address], [facility] Basophils/100 WBC (Bld) 0.6 % Normal 0.0-1.0 [facility] Comment on above: Performed By: #### 6 1405 #### [facility] [address] [place] [address], [facility] Eosinophils (Bld) [#/Vol] 0.1 10*3/uL Normal 0.0-0.5 [facility] Comment on above: Performed By: #### 6 1405 #### [facility] [address] [place] [address], [facility] Eosinophils/100 WBC (Bld) 0.7 % Normal 0.0-6.0 [facility] Comment on above: Performed By: #### 6 1405 #### [facility] [address] [facility] [address] Erythrocyte distribution width (RBC) [Ratio] 14.7 % Normal 11.5-15.0 [facility] Comment on above: Performed By: #### 6 1405 #### [facility] [address] [facility] [address] Hematocrit (Bld) [Volume fraction] 47.3 % Normal 39.0-50.0 [facility] Comment on above: Performed By: #### 6 1405 #### [facility] [address] [facility] [place] [place] [address], [facility] Hemoglobin (Bld) [Mass/Vol] 15.5 g/dL Normal 13.0-17.0 [facility] Comment on above: Performed By: #### 6 1405 #### [facility] [address] [place] [address], [facility] IMMATURE GRANS 0.7 % Normal 0.0-1.0 [facility] Comment on above: Performed By: #### 6 1405 #### [facility] [address] [place] [address], [facility] Lymphocytes (Bld) [#/Vol] 0.6 10*3/uL Low 1.2-4.0 [facility] Comment on above: Performed By: #### 6 1405 #### [facility] [address] [facility] [place] [address], [facility] Lymphocytes/100 WBC (Bld) 4.3 % Low 20.0-45.0 [facility] Comment on above: Performed By: #### 6 1405 #### [facility] [address] [place] [address], [facility] MCH (RBC) [Entitic mass] 31.0 pg Normal 27.0-33.0 [facility] Comment on above: Performed By: #### 6 1405 #### [facility] [address] [facility]. [address] MCHC (RBC) [Mass/Vol] 32.8 g/dL Normal 32.0-35.0 [facility] Comment on above: Performed By: #### 6 1405 #### [facility] [address] [place] [address], [facility] MCV (RBC) [Entitic vol] 94.6 fL Normal 82.0-98.0 [facility] Comment on above: Performed By: #### 6 1405 #### [facility] [address] [facility] [place] [address], [facility] Monocytes (Bld) [#/Vol] 1.0 10*3/uL Normal 0.1-1.0 [facility] Comment on above: Performed By: #### 6 1405 #### [facility] [address] [place] [address], [facility] MONOS 7.3 % Normal 5.0-12.0 [facility] Comment on above: Performed By: #### 6 1405 #### [facility] [address] [facility] [place] [address], [facility] Neutrophils/100 WBC (Bld) 86.4 % High 40.0-72.0 [facility] Comment on above: Performed By: #### 6 1405 #### [facility] [address] [facility] [place] [address], [facility] Nucleated RBC/100 WBC (Bld) [Ratio] 0 % Normal 0-0 [facility] Comment on above: Performed By: #### 6 1405 #### [facility] [address] [facility] [place] [address], [facility] PLAT CNT 289 10*3/uL Normal 150-400 [facility] Comment on above: Performed By: #### 6 1405 #### [facility] [address] [facility] [place] [address], [facility] RBC (Bld) [#/Vol] 5.00 10*6/uL Normal 4.20-5.70 [facility] Comment on above: Performed By: #### 6 1405 #### [facility] [address] [facility] [place] [address], [facility] WBC (Bld) [#/Vol] 13.82 10*3/uL High 4.00-10.60 [facility] Comment on above: Performed By: #### 6 1405 #### [facility] [address] [facility]. [address] COMP METABOLIC PANELon 12-01 Albumin [Mass/Vol] 4.7 g/dL Normal 3.5-5.7 [facility] Comment on above: Performed By: #### 2 5508, 99700, 98643, 58872, 81423 #### [facility] [address] [facility]. [address] ALKALINE PHOSPH 73 IU/L Normal 34-104 [facility] Comment on above: Performed By: #### 2 5508, 17064, 37202, 18122, 60266 #### [facility] [address] [place] [address], [place] ALT [Catalytic activity/Vol] 27 U/L Normal 7-52 [facility] Comment on above: Performed By: #### 2 5508, 66387, 53188, 12400, 15181 #### [facility] [address] [place] [address], [place] AST [Catalytic activity/Vol] 21 U/L Normal 13-39 [facility] Comment on above: Performed By: #### 2 5508, 37654, 80996, 14120, 92936 #### [facility] [address] [place] [address], [place] Bilirubin [Mass/Vol] 0.6 mg/dL Normal 0.3-1.0 [facility] Comment on above: Performed By: #### 2 5508, 27682, 02252, 90889, 38436 #### [facility] [address] [place] [address], [place] Calcium [Mass/Vol] 9.9 mg/dL Normal 8.6-10.3 [facility] Comment on above: Performed By: #### 2 5508, 83945, 39798, 81740, 82256 #### [facility] [address] [place] [address], [place] Chloride [Moles/Vol] 104 mmol/L Normal 98-107 [facility] Comment on above: Performed By: #### 2 5508, 97731, 95328, 26616, 31803 #### [facility] [address] [place] [address], [place] CO2 [Moles/Vol] 25 mmol/L Normal 21-31 [facility] Comment on above: Performed By: #### 2 5508, 19554, 78618, 74131, 90348 #### [facility] [address] [place] [address], [place] Creatinine [Mass/Vol] 1.40 mg/dL High 0.70-1.30 [facility] Comment on above: Performed By: #### 2 5508, 09725, 03174, 37245, 86418 #### [facility] [address] [place] [id number], [facility] eGFR- non- 52 ml/min/1.73sq m Abnormal >60 [facility] Comment on above: Performed By: #### 2 5508, 06741, 33141, 76540, 00993 #### [facility] [address] [place] [address], [facility] GFR/1.73 sq M.predicted among blacks MDRD (S/P/Bld) [Vol rate/Area] mL/min/{1.73_m2} Normal >60 [facility] Comment on above: Performed By: #### 2 5508, 72307, 52841, 92340, 54212 #### [facility] [address] [place] [address], [facility] Glucose [Mass/Vol] 133 mg/dL High 70-100 [facility] Comment on above: Performed By: #### 2 5508, 99365, 68629, 93729, 39241 #### [facility] [address] [place] [address], [place] Potassium [Moles/Vol] 4.8 mmol/L Normal 3.5-5.1 [facility] Comment on above: Performed By: #### 2 5508, 84715, 52000, 73627, 26156 #### [facility] [address] [place] [address], [place] Protein [Mass/Vol] 7.1 g/dL Normal 6.0-8.3 [facility] Comment on above: Performed By: #### 2 5508, 26776, 37162, 46835, 07571 #### [facility] [address] [place] [address], [facility] Sodium [Moles/Vol] 137 mmol/L Normal 136-145 [facility] Comment on above: Performed By: #### 2 5508, 28980, 06060, 74828, 09500 #### [facility] [address] [facility] [place] [address], [facility] Urea nitrogen [Mass/Vol] 19 mg/dL Normal 7-25 [facility] Comment on above: Performed By: #### 2 5508, 29018, 15768, 94855, 27635 #### [facility] [address] [facility] [place] [address], [facility] CT ABDOMEN AND PELVIS WO CON TRASTon 12-01-2020 CT ABDOMEN AND PELVIS WO CONTRAST [facility] Department of Radiology [address] [place] [address] [id number] Patient Name: VISHAL DUKE : 1960 Sex: M Age: Race: White Pt. Location: [facility] Patient Status: E Ordered Date: 12/01/2020 [...] Otherwise no change in appearance of the [place] kidneys. No evidence of cyst rupture. Right [...] achievable. Electronically signed: José Herman. Transcribed by: [email or web address], User Resident: Electronically Signed by: JOSÉ HERMAN @ 12/01/2020 11:45 AM Normal [facility] Comment on above: Order Comment: No: D o not add to previous draw CV'D BY IMM LAB AT 1240 LIPASE BLOODon 12-01-2020 LIPASE 40 Units/L Normal -82 [facility] Comment on above: Performed By: #### 2 5508, 31096, 27891, 70006, 95192 #### [facility] [address] [place] [address], [facility] URINALYSIS REFLEXon 12-02-19 Appearance (U) SL CLOUDY Abnormal CLEAR [facility] Comment on above: Order Comment: Yes: Add to Previous draw if able Performed By: #### 2 5508, 47401, 19706, 35175, 33834 #### [facility] [address] [place] [address], [facility] Bilirubin Ql (U) Negative Normal NEGATIVE [facility] Comment on above: Order Comment: Yes: Add to Previous draw if able Performed By: #### 2 5508, 74986, 50343, 95280, 13722 #### [facility] [address] [place] [address], [place] Color (U) TION Abnormal YELLOW [facility] Comment on above: Order Comment: Yes: Add to Previous draw if able Performed By: #### 2 5508, 59642, 60508, 11090, 33793 #### [facility] [address] [place] [address], [place] EPIS NONE SEEN Normal FEW,OCC,NO NE SEEN [facility] Comment on above: Order Comment: Yes: Add to Previous draw if able Performed By: #### 2 5508, 92069, 70572, 57284, 53652 #### [facility] [address] [place] [address], [place] Glucose Ql (U) Negative Normal NEGATIVE [facility] Comment on above: Order Comment: Yes: Add to Previous draw if able Performed By: #### 2 5508, 39184, 08164, 49292, 70991 #### [facility] [address] [place] [address], [facility] Hemoglobin Ql (U) Negative Normal NEGATIVE [facility] Comment on above: Order Comment: Yes: Add to Previous draw if able Performed By: #### 2 5508, 44103, 62654, 67335, 36008 #### [facility] [address] [place] [address], [facility] KETONE Negative Normal NEGATIVE [facility] Comment on above: Order Comment: Yes: Add to Previous draw if able Performed By: #### 2 5508, 40121, 67367, 41436, 25345 #### [facility] [address] [place] [address], [facility] LEUK MARIA A Negative Normal NEGATIVE [facility] Comment on above: Order Comment: Yes: Add to Previous draw if able Performed By: #### 2 5508, 62153, 38222, 32566, 69634 #### [facility] [address] [place] [address], [facility] MUCUS THREADS MOD Abnormal NONE SEEN [facility] Comment on above: Order Comment: Yes: Add to Previous draw if able Performed By: #### 2 5508, 57629, 76001, 58378, 95313 #### [facility] [address] [place] [address], [facility] Nitrite Ql (U) Negative Normal NEGATIVE [facility] Comment on above: Order Comment: Yes: Add to Previous draw if able Performed By: #### 2 5508, 00547, 08007, 74087, 55952 #### [facility] [address] [place] [address], [facility] pH (U) 5.0 [pH] Normal 5.0-8.0 [facility] Comment on above: Order Comment: Yes: Add to Previous draw if able Performed By: #### 2 5508, 70451, 15133, 82256, 30622 #### [facility] [address] [place] [address], [facility] Protein Ql (U) 30 mg/dL Abnormal NEGATIVE [facility] Comment on above: Order Comment: Yes: Add to Previous draw if able Performed By: #### 2 5508, 70767, 63607, 51609, 86655 #### [facility] [address] [place] [id number], [facility] RBC 0-2 Abnormal NONE SEEN [facility] Comment on above: Order Comment: Yes: Add to Previous draw if able Performed By: #### 2 5508, 27959, 90908, 87938, 43265 #### [facility] [address] [place] [address], [facility] SPEC GRAV 1.026 High 1.015-1.02 0 [facility] Comment on above: Order Comment: Yes: Add to Previous draw if able Performed By: #### 2 5508, 43064, 62903, 89018, 51441 #### [facility] [address] [place] [address], [facility] WBC UA 0-2 Abnormal NONE SEEN [facility] Comment on above: Order Comment: Yes: Add to Previous draw if able Performed By: #### 2 5508, 56637, 96537, 01306, 97779 #### [facility] [address] Pulmonary Functionon 021 Pulmonary Function MR #: [id number] [facility] PT. Name: Vishal Duke Date: 11/27/2020 [...] Care and Sleep Medicine Date Dict: 11/29/2020/01:09 Hmuberto/Negro Syed MD Date Trans: 11/29/2020 01:09 P/ [id number] cc: Rosa M Gonzales M.D. [facility]9 [facility] [address] Normal [facility] ARTERIAL BLOOD GAS W/COOXon 11-27-2020 BASE EXCESS 3 mmol/L Normal -2-3 [facility] Comment on above: Performed By: #### 2 5508, 80360, 97217, 31545, 51515 #### [facility] [address] [facility] [place] [address], [facility] COHB 1.5 % Normal 0.0-1.5 [facility] Comment on above: Performed By: #### 2 5508, 99587, 53239, 38659, 00438 #### [facility] [address] [place] [address], [facility] DELIVERY SYSTEMS ROOM AIR Normal [facility] Comment on above: Performed By: #### 2 5508, 33304, 66594, 81525, 59176 #### [facility] [address] [place] [address], [facility] FIO2 0 % Normal [facility] Comment on above: Performed By: #### 2 5508, 82559, 35227, 61835, 11923 #### [facility] [address] [place] [address], [place] HCO3 (Bld) [Moles/Vol] 26 mmol/L Normal 21-28 [facility] Comment on above: Performed By: #### 2 5508, 09852, 33288, 57147, 94296 #### [facility] [address] [place] [address], [facility] METHB 1.2 % Normal 0.0-1.5 [facility] Comment on above: Performed By: #### 2 5508, 57616, 93845, 00439, 60420 #### [facility] [address] [place] [address], [facility] Oxygen (Bld) [Partial pressure] 93 mm[Hg] Normal 83-108 [facility] Comment on above: Performed By: #### 2 5508, 59524, 90360, 76358, 42452 #### [facility] [address] [facility] [place] [address], [place] Oxygen saturation in Blood 95.6 % Normal 94.0-97.0 [facility] Comment on above: Performed By: #### 2 5508, 63630, 02811, 28045, 49357 #### [facility] [address] [place] [address], [place] PCO2 35 mmHg Normal 35-45 [facility] Comment on above: Performed By: #### 2 5508, 92749, 73129, 71193, 59210 #### [facility] [address] [place] [address], [facility] pH (Bld) 7.48 [pH] High 7.35-7.45 [facility] Comment on above: Performed By: #### 2 5508, 57906, 06711, 49830, 29999 #### [facility] [address] [place] [address], [facility] THB 15.4 g/dL Normal 12.0-16.3 [facility] Comment on above: Performed By: #### 2 5508, 14904, 59126, 11286, 83294 #### [facility] [address] [place] [address], [facility] CREATININE BLOODon 1 Creatinine [Mass/Vol] 1.10 mg/dL Normal 0.70-1.30 [facility] Comment on above: Order Comment: No: D o not add to previous draw Performed By: #### 2 5508, 88693, 20398, 11037, 96310 #### [facility] [address] [place] [address], [facility] GFR/1.73 sq M.predicted among blacks MDRD (S/P/Bld) [Vol rate/Area] mL/min/{1.73_m2} Normal >60 [facility] Comment on above: Order Comment: No: D o not add to previous draw Performed By: #### 2 5508, 89217, 16219, 12260, 40073 #### [facility] [address] [place] [address], [place] GFR/1.73 sq M.predicted among non-blacks MDRD (S/P/Bld) [Vol rate/Area] mL/min/{1.73_m2} Normal >60 [facility] Comment on above: Order Comment: No: D o not add to previous draw Performed By: #### 2 5508, 79542, 01926, 85067, 55671 #### [facility] [address] [place] [address], [facility] Cardiovascular Lab Reporton 10-29-2020 Cardiovascular Lab Report [facility] Patient Name: Zuleika [facility] Xavi Medeiros MR #: [id number] Department of Physician: Domo Mejia M.D. Division of Service Date: 10/29/2020 Cardiology Birthdate: 1960 Adult Cardiovascular Room #: [id number] [address] [place] [address] Cardiovascular Laboratory Report FINAL IMPRESSIONS: 1. Severe [...] daily for minimum of 6 months preferably group home. 6. Will consider elective revascularization of the right coronary artery should the patient continue to experience significant exertional angina; this will be a high risk procedure given tortuosity, calcification and ectasia. 7. Follow up with Dr. Chester in the [place] office in the next 1 to 2 [...] artery, failed attempt at deployment of a 6-Nepalese MynxGrip closure device. METHODS: After risks, benefits, and alternatives were explained, written informed consent was obtained. The patient was prepped and draped in usual sterile fashion over both groins. Using 1% lidocaine solution, local infiltration anesthesia was achieved. Using a micropuncture kit access to the right common femoral artery was obtained. A 6-Nepalese x 11 cm sheath was inserted without difficulty. Baseline femoral angiography was performed. Bilateral selective coronary angiography was performed using JL4 and JR4 catheters. Angiography of internal mammary artery graft was performed using a 6-Nepalese IM catheter. Limited angiography of the left subclavian was performed after retracting the catheter into the artery. After reviewing the images, it was elected to proceed with an interventional procedure. A 6-Nepalese XB3.5 guide catheter was advanced over J-wire [...] pressure to achieve optimal hemostasis once a 6-Nepalese MynxGrip closure device failed to deploy. Overall, [...] mammar (more content not included)... Normal [facility] BASIC METABOLIC PANELon 05-0 Calcium [Mass/Vol] 8.1 mg/dL Low 8.6-10.3 [facility] Comment on above: Order Comment: Yes: Add to Previous draw if able Performed By: #### 2 5508, 86138, 06518, 24333, 62612 #### [facility] [address] [place] [address], [place] Chloride [Moles/Vol] 103 mmol/L Normal 98-107 [facility] Comment on above: Order Comment: Yes: Add to Previous draw if able Performed By: #### 2 5508, 37756, 87382, 96268, 42974 #### [facility] [address] [place] [address], [place] CO2 [Moles/Vol] 25 mmol/L Normal 21-31 [facility] Comment on above: Order Comment: Yes: Add to Previous draw if able Performed By: #### 2 5508, 84592, 04688, 88707, 10648 #### [facility] [address] [place] [address], [place] Creatinine [Mass/Vol] 0.88 mg/dL Normal 0.70-1.30 [facility] Comment on above: Order Comment: Yes: Add to Previous draw if able Performed By: #### 2 5508, 75194, 21720, 41538, 11011 #### [facility] [address] [place] [address], [place] GFR/1.73 sq M.predicted among blacks MDRD (S/P/Bld) [Vol rate/Area] mL/min/{1.73_m2} Normal >60 [facility] Comment on above: Order Comment: Yes: Add to Previous draw if able Performed By: #### 2 5508, 27005, 06574, 47378, 18632 #### [facility] [address] [place] [address], [place] GFR/1.73 sq M.predicted among non-blacks MDRD (S/P/Bld) [Vol rate/Area] mL/min/{1.73_m2} Normal >60 [facility] Comment on above: Order Comment: Yes: Add to Previous draw if able Performed By: #### 2 5508, 13711, 86059, 81748, 24794 #### [facility] [address] [place] [address], [place] Glucose [Mass/Vol] 119 mg/dL High 70-100 [facility] Comment on above: Order Comment: Yes: Add to Previous draw if able Performed By: #### 2 5508, 03945, 37404, 10282, 62492 #### [facility] [address] [place] [address], [place] Potassium [Moles/Vol] 3.6 mmol/L Normal 3.5-5.1 [facility] Comment on above: Order Comment: Yes: Add to Previous draw if able Performed By: #### 2 5508, 22641, 64928, 75357, 35347 #### [facility] [address] [place] [address], [place] Sodium [Moles/Vol] 133 mmol/L Low 136-145 [facility] Comment on above: Order Comment: Yes: Add to Previous draw if able Performed By: #### 2 5508, 03656, 08445, 50574, 88675 #### [facility] [address] [place] [address], [place] Urea nitrogen [Mass/Vol] 17 mg/dL Normal 7-25 [facility] Comment on above: Order Comment: Yes: Add to Previous draw if able Performed By: #### 2 5508, 93158, 21516, 54112, 59108 #### [facility] [address] [place] [address], [place] CBC COMPLETE BLOOD COUNTon 0 5- Erythrocyte distribution width (RBC) [Ratio] 13.3 % Normal 11.5-15.0 [facility] Comment on above: Order Comment: No: D o not add to previous draw Performed By: #### 6 1405 #### [facility] [address] [place] [address], [facility] Hematocrit (Bld) [Volume fraction] 47.6 % Normal 39.0-50.0 [facility] Comment on above: Order Comment: No: D o not add to previous draw Performed By: #### 6 1405 #### [facility] [address] [place] [address], [facility] Hemoglobin (Bld) [Mass/Vol] 15.9 g/dL Normal 13.0-17.0 [facility] Comment on above: Order Comment: No: D o not add to previous draw Performed By: #### 6 1405 #### [facility] [address] [place] [address], [facility] MCH (RBC) [Entitic mass] 29.1 pg Normal 27.0-33.0 [facility] Comment on above: Order Comment: No: D o not add to previous draw Performed By: #### 6 1405 #### [facility] [address] [place] [address], [facility] MCHC (RBC) [Mass/Vol] 33.4 g/dL Normal 32.0-35.0 [facility] Comment on above: Order Comment: No: D o not add to previous draw Performed By: #### 6 1405 #### [facility] [address] [place] [address], [place] MCV (RBC) [Entitic vol] 87.2 fL Normal 82.0-98.0 [facility] Comment on above: Order Comment: No: D o not add to previous draw Performed By: #### 6 1405 #### [facility] [address] [place] [id number], [place] Nucleated RBC/100 WBC (Bld) [Ratio] 0 % Normal 0-0 [facility] Comment on above: Order Comment: No: D o not add to previous draw Performed By: #### 6 1405 #### [facility] [address] [facility] [place] [address], [facility] PLAT CNT 306 10*3/uL Normal 150-400 [facility] Comment on above: Order Comment: No: D o not add to previous draw Performed By: #### 6 1405 #### [facility] [address] [place] [address], [facility] RBC (Bld) [#/Vol] 5.46 10*6/uL Normal 4.20-5.70 [facility] Comment on above: Order Comment: No: D o not add to previous draw Performed By: #### 6 1405 #### [facility] [address] [facility] [place] [address], [facility] WBC (Bld) [#/Vol] 10.07 10*3/uL Normal 4.00-10.60 [facility] Comment on above: Order Comment: No: D o not add to previous draw Performed By: #### 6 1405 #### [facility] [address] PORTABLE CHEST 1 VIEWon 05-0 PORTABLE CHEST 1 VIEW [facility] Department of Radiology [address] [place] [id number] Patient Name: VISHAL DUKE : 1960 Sex: M Age: Race: White Pt. Location: [id number] Patient Status: I Ordered Date: 08/19/2020 6:00:00 [...] right. Electronically signed: Dariela Vincent. Transcribed by: [email or web address], User Resident: Electronically Signed by: DARIELA VINCENT @ 08/19/2020 10:20 AM Normal [facility] Comment on above: Order Comment: No: D o not add to previous draw CV'D BY [facility] AT 1240 TACROLIMUSon 08-19-2020 Tacrolimus (Bld) [Mass/Vol] 8.5 ng/mL Normal 5.0-20.0 [facility] Comment on above: Order Comment: No: D o not add to previous draw Result Comment: The [employer] MACHINE OPERATOR Tacrolimus assay is a delayed one-step immunoassay for the quantitative determination of tacrolimus in human whole blood using the chemiluminescent microparticle immunoassay (CMIA) technology with flexible assay protocols, referred to as Chemiflex. Performed By: #### 2 5508, 20641, 56391, 18374, 23777 #### [facility] [address] BASIC METABOLIC PANELon Calcium [Mass/Vol] 8.8 mg/dL Normal 8.6-10.3 [facility] Comment on above: Order Comment: No: D o not add to previous draw Pt in bath room askme to come back Performed By: #### 3 5200 #### [facility] [address] [place] [address], [place] Chloride [Moles/Vol] 100 mmol/L Normal 98-107 [facility] Comment on above: Order Comment: No: D o not add to previous draw Pt in bath room askme to come back Performed By: #### 3 5200 #### [facility] [address] [place] [address], [place] CO2 [Moles/Vol] 28 mmol/L Normal 21-31 [facility] Comment on above: Order Comment: No: D o not add to previous draw Pt in bath room askme to come back Performed By: #### 3 5200 #### [facility] [address] [place] [address], [place] Creatinine [Mass/Vol] 0.87 mg/dL Normal 0.70-1.30 [facility] Comment on above: Order Comment: No: D o not add to previous draw Pt in bath room askme to come back Performed By: #### 3 5200 #### [facility] [address] [place] [address], [place] GFR/1.73 sq M.predicted among blacks MDRD (S/P/Bld) [Vol rate/Area] mL/min/{1.73_m2} Normal >60 [facility] Comment on above: Order Comment: No: D o not add to previous draw Pt in bath room askme to come back Performed By: #### 3 5200 #### [facility] [address] [place] [address], [place] GFR/1.73 sq M.predicted among non-blacks MDRD (S/P/Bld) [Vol rate/Area] mL/min/{1.73_m2} Normal >60 [facility] Comment on above: Order Comment: No: D o not add to previous draw Pt in bath room askme to come back Performed By: #### 3 5200 #### [facility] [address] [place] [address], [facility] Glucose [Mass/Vol] 110 mg/dL High 70-100 [facility] Comment on above: Order Comment: No: D o not add to previous draw Pt in bath room askme to come back Performed By: #### 3 5200 #### [facility] [address] [place] [address], [facility] Potassium [Moles/Vol] 3.7 mmol/L Normal 3.5-5.1 [facility] Comment on above: Order Comment: No: D o not add to previous draw Pt in bath room askme to come back Performed By: #### 3 5200 #### [facility] [address] [place] [address], [facility] Sodium [Moles/Vol] 137 mmol/L Normal 136-145 [facility] Comment on above: Order Comment: No: D o not add to previous draw Pt in bath room askme to come back Performed By: #### 3 5200 #### [facility] [address] [place] [address], [facility] Urea nitrogen [Mass/Vol] 18 mg/dL Normal 7-25 [facility] Comment on above: Order Comment: No: D o not add to previous draw Pt in bath room askme to come back Performed By: #### 3 5200 #### [facility] [address] [place] [address], [facility] TACROLIMUSon 08-17-2020 Tacrolimus (Bld) [Mass/Vol] 4.0 ng/mL Low 5.0-20.0 [facility] Comment on above: Order Comment: Unkno wn Result Comment: The [employer] MACHINE OPERATOR Tacrolimus assay is a delayed one-step immunoassay for the quantitative determination of tacrolimus in human whole blood using the chemiluminescent microparticle immunoassay (CMIA) technology with flexible assay protocols, referred to as Chemiflex. Performed By: #### 2 5508, 74640, 61257, 66019, 45638 #### [facility] [address] [place] [address], [facility] BASIC METABOLIC PANELon 05-0 Calcium [Mass/Vol] 8.3 mg/dL Low 8.6-10.3 [facility] Comment on above: Order Comment: Yes: Add to Previous draw if able Performed By: #### 2 5508, 94595, 81336, 36381, 18891 #### [facility] [address] [place] [address], [facility] Chloride [Moles/Vol] 104 mmol/L Normal 98-107 [facility] Comment on above: Order Comment: Yes: Add to Previous draw if able Performed By: #### 2 5508, 76196, 39562, 94715, 61718 #### [facility] [address] [place] [address], [facility] CO2 [Moles/Vol] 24 mmol/L Normal 21-31 [facility] Comment on above: Order Comment: Yes: Add to Previous draw if able Performed By: #### 2 5508, 78348, 91786, 57504, 53272 #### [facility] [address] [place] [id number], [facility] Creatinine [Mass/Vol] 0.82 mg/dL Normal 0.70-1.30 [facility] Comment on above: Order Comment: Yes: Add to Previous draw if able Performed By: #### 2 5508, 29256, 20086, 14575, 87581 #### [facility] [address] [place] [address], [facility] GFR/1.73 sq M.predicted among blacks MDRD (S/P/Bld) [Vol rate/Area] mL/min/{1.73_m2} Normal >60 [facility] Comment on above: Order Comment: Yes: Add to Previous draw if able Performed By: #### 2 5508, 29846, 77019, 70403, 20000 #### [facility] [address] [place] [address], [facility] GFR/1.73 sq M.predicted among non-blacks MDRD (S/P/Bld) [Vol rate/Area] mL/min/{1.73_m2} Normal >60 [facility] Comment on above: Order Comment: Yes: Add to Previous draw if able Performed By: #### 2 5508, 46764, 66840, 19342, 04293 #### [facility] [address] [place] [address], [facility] Glucose [Mass/Vol] 114 mg/dL High 70-100 [facility] Comment on above: Order Comment: Yes: Add to Previous draw if able Performed By: #### 2 5508, 68191, 46282, 50178, 83341 #### [facility] [address] [place] [address], [facility] Potassium [Moles/Vol] 4.1 mmol/L Normal 3.5-5.1 [facility] Comment on above: Order Comment: Yes: Add to Previous draw if able Performed By: #### 2 5508, 60537, 45006, 80497, 47029 #### [facility] [address] [place] [address], [place] Sodium [Moles/Vol] 135 mmol/L Low 136-145 [facility] Comment on above: Order Comment: Yes: Add to Previous draw if able Performed By: #### 2 5508, 75060, 95024, 24873, 49853 #### [facility] [address] [place] [address], [place] Urea nitrogen [Mass/Vol] 24 mg/dL Normal 7-25 [facility] Comment on above: Order Comment: Yes: Add to Previous draw if able Performed By: #### 2 5508, 38304, 16111, 73167, 89765 #### [facility] [address] [place] [address], [facility] MAGNESIUM BLOODon 08-16-2020 Magnesium [Mass/Vol] 1.9 mg/dL Normal 1.9-2.7 [facility] Comment on above: Order Comment: No: D o not add to previous draw Performed By: #### 4 1000, 94131, 88637 ####[facility]3000 [facility] [place] [address], [facility] PHOSPHORUS BLOODon Phosphate [Mass/Vol] 3.1 mg/dL Normal 2.5-5.0 [facility] Comment on above: Order Comment: No: D o not add to previous draw Performed By: #### 4 1000, 35860, 31797 ####[facility]3000 [facility].[address] TACROLIMUSon 08-16-2020 Tacrolimus (Bld) [Mass/Vol] 3.5 ng/mL Low 5.0-20.0 [facility] Comment on above: Order Comment: Unkno wn Result Comment: The [employer] MACHINE OPERATOR Tacrolimus assay is a delayed one-step immunoassay for the quantitative determination of tacrolimus in human whole blood using the chemiluminescent microparticle immunoassay (CMIA) technology with flexible assay protocols, referred to as Chemiflex. Performed By: #### 2 5508, 71125, 48867, 91027, 10336 #### [facility] [address] [facility] [address], [facility] C REACTIVE PROTEINon 021 CRP [Mass/Vol] 20.9 mg/L High 0.0-7.0 [facility] Comment on above: Order Comment: Yes: Add to Previous draw if able Performed By: #### 2 5508, 38648, 76074, 75970, 53175 #### [facility] [address] [facility] [address], [facility] CPKon 08-15-2020 CK [Catalytic activity/Vol] 38 U/L Normal 30-223 [facility] Comment on above: Order Comment: Unkno wn Performed By: #### 2 5508, 56040, 77942, 34505, 97313 #### [facility] [address] [facility] D DIMER TESTon 08-15-2020 D-DIMER TEST 2.03 mcg/mL FEU High 0.27-0.49 [facility] Comment on above: Order Comment: Yes: Add to Previous draw if able Result Comment: D-Di priscilla values of less than 0.50 ug/ml (FEU) are considered to be a negative predictor of thrombosis. However, the D-Dimer result should be used in conjunction with pretest probability and should not be used alone to diagnose a thrombotic event. Performed By: #### 2 5508, 63543, 60971, 53326, 02241 #### [facility] 3000 [facility]. [address] FERRITINon 08-15-2020 Ferritin [Mass/Vol] 1412 ng/mL High 24-336 [facility] Comment on above: Order Comment: Unkno wn Performed By: #### 2 5508, 22110, 69970, 32184, 15923 #### [facility] [address] [facility] [place] [address], [facility] LDH BLOODon 08-15-2020 LDH 457 Units/L High 140-271 [facility] Comment on above: Order Comment: Unkno wn Performed By: #### 2 5508, 02694, 99434, 38468, 56832 #### [facility] [address] [facility] [address], [facility] LIVER BATTERYon 08-15-2020 Albumin [Mass/Vol] 3.1 g/dL Low 3.5-5.7 [facility] Comment on above: Order Comment: Unkno wn Performed By: #### 2 5508, 63513, 64715, 19647, 13339 #### [facility] [address] [facility] [place] [place] [address], [facility] ALKALINE PHOSPH 94 IU/L Normal 34-104 [facility] Comment on above: Order Comment: Unkno wn Performed By: #### 2 5508, 04947, 26335, 51851, 11276 #### [facility] [address] [place] [address], [facility] ALT [Catalytic activity/Vol] 108 U/L High 7-52 [facility] Comment on above: Order Comment: Unkno wn Performed By: #### 2 5508, 88788, 44374, 28369, 64363 #### [facility] [address] [place] [address], [facility] AST [Catalytic activity/Vol] 54 U/L High 13-39 [facility] Comment on above: Order Comment: Unkno wn Performed By: #### 2 5508, 91444, 92944, 37575, 90221 #### [facility] [address] [place] [address], [facility] Bilirubin [Mass/Vol] 0.8 mg/dL Normal 0.3-1.0 [facility] Comment on above: Order Comment: Unkno wn Performed By: #### 2 5508, 30223, 62005, 74237, 01084 #### [facility] [address] [place] [address], [facility] Bilirubin.direct [Mass/Vol] 0.2 mg/dL Normal 0.0-0.2 [facility] Comment on above: Order Comment: Unkno wn Performed By: #### 2 5508, 35585, 40699, 03815, 81587 #### [facility] [address] [place] [address], [facility] Protein [Mass/Vol] 5.9 g/dL Low 6.0-8.3 [facility] Comment on above: Order Comment: Unkno wn Performed By: #### 2 5508, 80846, 33594, 59064, 92635 #### [facility] [address] [place] [address], [facility] TACROLIMUSon 08-15-2020 Tacrolimus (Bld) [Mass/Vol] 4.4 ng/mL Low 5.0-20.0 [facility] Comment on above: Order Comment: Yes: Add to Previous draw if able Result Comment: The [employer] MACHINE OPERATOR Tacrolimus assay is a delayed one-step immunoassay for the quantitative determination of tacrolimus in human whole blood using the chemiluminescent microparticle immunoassay (CMIA) technology with flexible assay protocols, referred to as Chemiflex. Performed By: #### 2 5508, 78544, 97553, 54858, 32339 #### [facility] [address] [place] [address], [facility] BASIC METABOLIC PANELon 04-3 0-2020 Calcium [Mass/Vol] 8.2 mg/dL Low 8.6-10.3 [facility] Comment on above: Order Comment: No: D o not add to previous draw Performed By: #### 2 5508, 60142, 51679, 05497, 78643 #### [facility] [address] [place] [address], [facility] Chloride [Moles/Vol] 102 mmol/L Normal 98-107 [facility] Comment on above: Order Comment: No: D o not add to previous draw Performed By: #### 2 5508, 66007, 85055, 62690, 90905 #### [facility] [address] [place] [address], [facility] CO2 [Moles/Vol] 19 mmol/L Low 21-31 [facility] Comment on above: Order Comment: No: D o not add to previous draw Performed By: #### 2 5508, 12904, 26116, 51110, 88260 #### [facility] [address] [place] [address], [place] Creatinine [Mass/Vol] 0.95 mg/dL Normal 0.70-1.30 [facility] Comment on above: Order Comment: No: D o not add to previous draw Performed By: #### 2 5508, 77578, 16161, 60945, 74837 #### [facility] [address] [place] [address], [facility] GFR/1.73 sq M.predicted among blacks MDRD (S/P/Bld) [Vol rate/Area] mL/min/{1.73_m2} Normal >60 [facility] Comment on above: Order Comment: No: D o not add to previous draw Performed By: #### 2 5508, 91301, 31748, 06498, 15292 #### [facility] [address] [place] [address], [place] GFR/1.73 sq M.predicted among non-blacks MDRD (S/P/Bld) [Vol rate/Area] mL/min/{1.73_m2} Normal >60 [facility] Comment on above: Order Comment: No: D o not add to previous draw Performed By: #### 2 5508, 11281, 49788, 74912, 07081 #### [facility] [address] [place] [address], [facility] Glucose [Mass/Vol] 253 mg/dL High 70-100 [facility] Comment on above: Order Comment: No: D o not add to previous draw Performed By: #### 2 5508, 51447, 75262, 63674, 13752 #### [facility] [address] [place] [address], [place] Potassium [Moles/Vol] 4.0 mmol/L Normal 3.5-5.1 [facility] Comment on above: Order Comment: No: D o not add to previous draw Performed By: #### 2 5508, 59265, 88003, 27074, 51089 #### [facility] [address] [place] [address], [place] Sodium [Moles/Vol] 130 mmol/L Low 136-145 [facility] Comment on above: Order Comment: No: D o not add to previous draw Performed By: #### 2 5508, 25141, 11663, 80403, 33712 #### [facility] [address] Urea nitrogen [Mass/Vol] 34 mg/dL High 7-25 [facility] Comment on above: Order Comment: No: D o not add to previous draw Performed By: #### 2 5508, 73435, 87595, 17734, 88921 #### [facility] [address] [place] [address], [facility] C REACTIVE PROTEINon CRP [Mass/Vol] 19.7 mg/L High 0.0-7.0 [facility] Comment on above: Order Comment: No: D o not add to previous draw Performed By: #### 6 1405 #### [facility] [address] [place] [address], [facility] COMP METABOLIC PANELon 08-14 Albumin [Mass/Vol] 3.0 g/dL Low 3.5-5.7 [facility] Comment on above: Order Comment: This order is a replacement of the rejected order with accession [id number]. Performed By: #### 2 5508, 74184, 73876, 68241, 71328 #### [facility] [address] [place] [address], [facility] ALKALINE PHOSPH 81 IU/L Normal 34-104 [facility] Comment on above: Order Comment: This order is a replacement of the rejected order with accession [id number]. Performed By: #### 2 5508, 04864, 60765, 34634, 50159 #### [facility] [address] [place] [id number], [facility] ALT [Catalytic activity/Vol] 80 U/L High 7-52 [facility] Comment on above: Order Comment: This order is a replacement of the rejected order with accession [id number]. Performed By: #### 2 5508, 07995, 19669, 64181, 24876 #### [facility] [address] [place] [address], [place] AST [Catalytic activity/Vol] 52 U/L High 13-39 [facility] Comment on above: Order Comment: This order is a replacement of the rejected order with accession [id number]. Performed By: #### 2 5508, 95487, 94895, 60511, 39836 #### [facility] [address] [place] [address], [place] Bilirubin [Mass/Vol] 0.7 mg/dL Normal 0.3-1.0 [facility] Comment on above: Order Comment: This order is a replacement of the rejected order with accession [id number]. Performed By: #### 2 5508, 57779, 22274, 24977, 43882 #### [facility] [address] [place] [address], [place] Calcium [Mass/Vol] 8.1 mg/dL Low 8.6-10.3 [facility] Comment on above: Order Comment: This order is a replacement of the rejected order with accession [id number]. Performed By: #### 2 5508, 15943, 23835, 03023, 45953 #### [facility] [address] [place] [address], [place] Chloride [Moles/Vol] 102 mmol/L Normal 98-107 [facility] Comment on above: Order Comment: This order is a replacement of the rejected order with accession [id number]. Performed By: #### 2 5508, 25342, 38905, 64733, 97224 #### [facility] [address] [place] [address], [place] CO2 [Moles/Vol] 24 mmol/L Normal 21-31 [facility] Comment on above: Order Comment: This order is a replacement of the rejected order with accession [id number]. Performed By: #### 2 5508, 41990, 86376, 38893, 47723 #### [facility] [address] [place] [address], [place] Creatinine [Mass/Vol] 0.98 mg/dL Normal 0.70-1.30 [facility] Comment on above: Order Comment: This order is a replacement of the rejected order with accession [id number]. Performed By: #### 2 5508, 04943, 52050, 80645, 49959 #### [facility] [address] [place] [address], [facility] GFR/1.73 sq M.predicted among blacks MDRD (S/P/Bld) [Vol rate/Area] mL/min/{1.73_m2} Normal >60 [facility] Comment on above: Order Comment: This order is a replacement of the rejected order with accession [id number]. Performed By: #### 2 5508, 86141, 59515, 23832, 89125 #### [facility] [address] [place] [address], [facility] GFR/1.73 sq M.predicted among non-blacks MDRD (S/P/Bld) [Vol rate/Area] mL/min/{1.73_m2} Normal >60 [facility] Comment on above: Order Comment: This order is a replacement of the rejected order with accession [id number]. Performed By: #### 2 5508, 77182, 04949, 38351, 80659 #### [facility] [address] [place] [address], [place] Glucose [Mass/Vol] 141 mg/dL High 70-100 [facility] Comment on above: Order Comment: This order is a replacement of the rejected order with accession [id number]. Performed By: #### 2 5508, 14137, 25294, 77925, 97941 #### [facility] [address] [place] [address], [place] Potassium [Moles/Vol] 4.2 mmol/L Normal 3.5-5.1 [facility] Comment on above: Order Comment: This order is a replacement of the rejected order with accession [id number]. Performed By: #### 2 5508, 24643, 96148, 03820, 69574 #### [facility] [address] Protein [Mass/Vol] 5.6 g/dL Low 6.0-8.3 [facility] Comment on above: Order Comment: This order is a replacement of the rejected order with accession [id number]. Performed By: #### 2 5508, 94520, 59158, 21083, 21854 #### [facility] [address] Sodium [Moles/Vol] 132 mmol/L Low 136-145 [facility] Comment on above: Order Comment: This order is a replacement of the rejected order with accession [id number]. Performed By: #### 2 5508, 89891, 88600, 71908, 42404 #### [facility] [address] [facility] [address] Urea nitrogen [Mass/Vol] 32 mg/dL High 7-25 [facility] Comment on above: Order Comment: This order is a replacement of the rejected order with accession [id number]. Performed By: #### 2 5508, 21957, 66812, 53295, 25085 #### [facility] [address] CPKon 08-14-2020 CK [Catalytic activity/Vol] 47 U/L Normal 30-223 [facility] Comment on above: Order Comment: No: D o not add to previous draw Performed By: #### 2 5508, 03922, 71663, 45310, 37786 #### [facility] [address] [facility] D DIMER TESTon 08-14-2020 D-DIMER TEST 2.41 mcg/mL FEU High 0.27-0.49 [facility] Comment on above: Order Comment: No: D o not add to previous draw Result Comment: D-Di priscilla values of less than 0.50 ug/ml (FEU) are considered to be a negative predictor of thrombosis. However, the D-Dimer result should be used in conjunction with pretest probability and should not be used alone to diagnose a thrombotic event. Performed By: #### 6 1405 #### [facility] [address] [place] [address], [facility] FERRITINon 08-14-2020 Ferritin [Mass/Vol] 836 ng/mL High 24-336 [facility] Comment on above: Order Comment: No: D o not add to previous draw Performed By: #### 2 5508, 21249, 86867, 23909, 99061 #### [facility] [address] [place] [id number], [facility] LDH BLOODon 08-14-2020 LDH 310 Units/L High 140-271 [facility] Comment on above: Order Comment: No: D o not add to previous draw Performed By: #### 2 5508, 81239, 81530, 43311, 89732 #### [facility] [address] [place] [id number], [facility] LIVER BATTERYon 08-14-2020 Albumin [Mass/Vol] 2.9 g/dL Low 3.5-5.7 [facility] Comment on above: Order Comment: No: D o not add to previous draw Performed By: #### 2 5508, 27090, 75712, 28476, 06424 #### [facility] [address] [place] [address], [facility] ALKALINE PHOSPH 78 IU/L Normal 34-104 [facility] Comment on above: Order Comment: No: D o not add to previous draw Performed By: #### 2 5508, 37285, 78871, 69664, 35362 #### [facility] [address] [place] [address], [facility] ALT [Catalytic activity/Vol] 83 U/L High 7-52 [facility] Comment on above: Order Comment: No: D o not add to previous draw Performed By: #### 2 5508, 12306, 57093, 03036, 13757 #### [facility] [address] AST [Catalytic activity/Vol] 46 U/L High 13-39 [facility] Comment on above: Order Comment: No: D o not add to previous draw Performed By: #### 2 5508, 29313, 05317, 54464, 05129 #### [facility] [address] [place] [address], [facility] Bilirubin [Mass/Vol] 0.6 mg/dL Normal 0.3-1.0 [facility] Comment on above: Order Comment: No: D o not add to previous draw Performed By: #### 2 5508, 22296, 18392, 03079, 62935 #### [facility] [address] [place] [address], [facility] Bilirubin.direct [Mass/Vol] 0.2 mg/dL Normal 0.0-0.2 [facility] Comment on above: Order Comment: No: D o not add to previous draw Performed By: #### 2 5508, 52848, 36088, 37469, 68112 #### [facility] [address] [place] [address], [facility] Protein [Mass/Vol] 5.3 g/dL Low 6.0-8.3 [facility] Comment on above: Order Comment: No: D o not add to previous draw Performed By: #### 2 5508, 56504, 01698, 55048, 44511 #### [facility] [address] [place] [address], [facility] OSMOLALITY BLOODon Osmolality [Osmolality] 291 mosm/kg Normal 285-305 [facility] Comment on above: Order Comment: No: D o not add to previous draw Performed By: #### 2 5508, 90231, 51825, 20876, 33845 #### [facility] [address] [place] [address], [facility] TACROLIMUSon 08-14-2020 Tacrolimus (Bld) [Mass/Vol] 9.7 ng/mL Normal 5.0-20.0 [facility] Comment on above: Order Comment: Yes: Add to Previous draw if able Result Comment: The SANDHU TOOL POLISHING MACHINE OPERATOR Tacrolimus assay is a delayed one-step immunoassay for the quantitative determination of tacrolimus in human whole blood using the chemiluminescent microparticle immunoassay (CMIA) technology with flexible assay protocols, referred to as Chemiflex. Performed By: #### 2 5508, 76872, 38529, 97706, 32890 #### [facility] [address] Tacrolimus (Bld) [Mass/Vol] 5.7 ng/mL Normal 5.0-20.0 [facility] Comment on above: Order Comment: Yes: Add to Previous draw if able Result Comment: The S[employer]HU TOOL POLISHING MACHINE OPERATOR Tacrolimus assay is a delayed one-step immunoassay for the quantitative determination of tacrolimus in human whole blood using the chemiluminescent microparticle immunoassay (CMIA) technology with flexible assay protocols, referred to as Chemiflex. Performed By: #### 2 5508, 92422, 89864, 16996, 46307 #### [facility] [address] COMP METABOLIC PANELon 08-12 Albumin [Mass/Vol] 3.2 g/dL Low 3.5-5.7 [facility] Comment on above: Order Comment: No: D o not add to previous draw Performed By: #### 2 5508, 53727, 58217, 11340, 74451 #### [facility] [address] [facility] [address] ALKALINE PHOSPH 89 IU/L Normal 34-104 [facility] Comment on above: Order Comment: No: D o not add to previous draw Performed By: #### 2 5508, 48682, 29636, 28006, 10146 #### [facility] [address] [place] [address], [facility] ALT [Catalytic activity/Vol] 69 U/L High 7-52 [facility] Comment on above: Order Comment: No: D o not add to previous draw Performed By: #### 2 5508, 07612, 43083, 87712, 22242 #### [facility] [address] [place] [address], [place] AST [Catalytic activity/Vol] 54 U/L High 13-39 [facility] Comment on above: Order Comment: No: D o not add to previous draw Performed By: #### 2 5508, 28674, 00854, 86042, 20428 #### [facility] [address] [place] [address], [place] Bilirubin [Mass/Vol] 1.0 mg/dL Normal 0.3-1.0 [facility] Comment on above: Order Comment: No: D o not add to previous draw Performed By: #### 2 5508, 72036, 48539, 46698, 10652 #### [facility] [address] [place] [address], [place] Calcium [Mass/Vol] 8.8 mg/dL Normal 8.6-10.3 [facility] Comment on above: Order Comment: No: D o not add to previous draw Performed By: #### 2 5508, 15056, 40065, 61613, 88898 #### [facility] [address] [place] [address], [place] Chloride [Moles/Vol] 97 mmol/L Low 98-107 [facility] Comment on above: Order Comment: No: D o not add to previous draw Performed By: #### 2 5508, 28089, 92087, 87344, 08984 #### [facility] [address] [place] [address], [place] CO2 [Moles/Vol] 24 mmol/L Normal 21-31 [facility] Comment on above: Order Comment: No: D o not add to previous draw Performed By: #### 2 5508, 44778, 32976, 30181, 49118 #### [facility] [address] [place] [address], [place] Creatinine [Mass/Vol] 0.82 mg/dL Normal 0.70-1.30 [facility] Comment on above: Order Comment: No: D o not add to previous draw Performed By: #### 2 5508, 25894, 19660, 92009, 61234 #### [facility] [address] [place] [address], [place] GFR/1.73 sq M.predicted among blacks MDRD (S/P/Bld) [Vol rate/Area] mL/min/{1.73_m2} Normal >60 [facility] Comment on above: Order Comment: No: D o not add to previous draw Performed By: #### 2 5508, 54838, 01399, 35399, 20329 #### [facility] [address] [place] [address], [place] GFR/1.73 sq M.predicted among non-blacks MDRD (S/P/Bld) [Vol rate/Area] mL/min/{1.73_m2} Normal >60 [facility] Comment on above: Order Comment: No: D o not add to previous draw Performed By: #### 2 5508, 78052, 69304, 18055, 77979 #### [facility] [address] [place] [address], [place] Glucose [Mass/Vol] 154 mg/dL High 70-100 [facility] Comment on above: Order Comment: No: D o not add to previous draw Performed By: #### 2 5508, 85955, 68848, 42195, 63245 #### [facility] [address] [place] [address], [place] Potassium [Moles/Vol] 4.9 mmol/L Normal 3.5-5.1 [facility] Comment on above: Order Comment: No: D o not add to previous draw Performed By: #### 2 5508, 27698, 29175, 69199, 27059 #### [facility] [address] [place] [address], [place] Protein [Mass/Vol] 6.1 g/dL Normal 6.0-8.3 [facility] Comment on above: Order Comment: No: D o not add to previous draw Performed By: #### 2 5508, 68315, 79824, 96036, 63510 #### [facility] [address] [place] [address], [facility] Sodium [Moles/Vol] 128 mmol/L Low 136-145 [facility] Comment on above: Order Comment: No: D o not add to previous draw Performed By: #### 2 5508, 65487, 27152, 84181, 77460 #### [facility] [address] [place] [address], [facility] Urea nitrogen [Mass/Vol] 32 mg/dL High 7-25 [facility] Comment on above: Order Comment: No: D o not add to previous draw Performed By: #### 2 5508, 34055, 90052, 27036, 61911 #### [facility] [address] [place] [address], [facility] OSMOLALITY URINEon 1 OSMOLALITY 857 mOsm/kg Normal 50-1400 [facility] Comment on above: Order Comment: No: D o not add to previous draw Performed By: #### 2 5508, 66592, 14957, 87542, 00262 #### [facility] [address] [place] [id number], [facility] SODIUM URINE RANDOMon 2020 Sodium (U) [Moles/Vol] 51 mmol/L Normal [facility] Comment on above: Order Comment: No: D o not add to previous draw Result Comment: Ther e are no established reference values for random urine specimens Performed By: #### 2 5508, 99316, 35597, 46321, 26016 #### [facility] [address] [place] [id number], [facility] TACROLIMUSon 08-12-2020 Tacrolimus (Bld) [Mass/Vol] 5.2 ng/mL Normal 5.0-20.0 [facility] Comment on above: Order Comment: Unkno wn Result Comment: The S[employer]HU TOOL POLISHING MACHINE OPERATOR Tacrolimus assay is a delayed one-step immunoassay for the quantitative determination of tacrolimus in human whole blood using the chemiluminescent microparticle immunoassay (CMIA) technology with flexible assay protocols, referred to as Chemiflex. Performed By: #### 9 9914 ####[facility] [place] [address], [facility] BASIC METABOLIC PANELon 04-2 Calcium [Mass/Vol] 8.6 mg/dL Normal 8.6-10.3 [facility] Comment on above: Order Comment: No: D o not add to previous draw Performed By: #### 2 5508, 65046, 82965, 07287, 72402 #### [facility] [address] [place] [address], [facility] Chloride [Moles/Vol] 97 mmol/L Low 98-107 [facility] Comment on above: Order Comment: No: D o not add to previous draw Performed By: #### 2 5508, 51950, 19322, 85379, 38571 #### [facility] [address] [place] [address], [place] CO2 [Moles/Vol] 23 mmol/L Normal 21-31 [facility] Comment on above: Order Comment: No: D o not add to previous draw Performed By: #### 2 5508, 45371, 90179, 64774, 85428 #### [facility] [address] [place] [address], [place] Creatinine [Mass/Vol] 0.82 mg/dL Normal 0.70-1.30 [facility] Comment on above: Order Comment: No: D o not add to previous draw Performed By: #### 2 5508, 98509, 47473, 78405, 06559 #### [facility] [address] [place] [address], [place] GFR/1.73 sq M.predicted among blacks MDRD (S/P/Bld) [Vol rate/Area] mL/min/{1.73_m2} Normal >60 [facility] Comment on above: Order Comment: No: D o not add to previous draw Performed By: #### 2 5508, 64928, 68770, 36496, 32345 #### [facility] [address] [place] [address], [place] GFR/1.73 sq M.predicted among non-blacks MDRD (S/P/Bld) [Vol rate/Area] mL/min/{1.73_m2} Normal >60 [facility] Comment on above: Order Comment: No: D o not add to previous draw Performed By: #### 2 5508, 37780, 00660, 43856, 06988 #### [facility] [address] [place] [address], [place] Glucose [Mass/Vol] 166 mg/dL High 70-100 [facility] Comment on above: Order Comment: No: D o not add to previous draw Performed By: #### 2 5508, 96122, 27112, 83199, 58724 #### [facility] [address] [place] [address], [place] Potassium [Moles/Vol] 4.9 mmol/L Normal 3.5-5.1 [facility] Comment on above: Order Comment: No: D o not add to previous draw Performed By: #### 2 5508, 07479, 73884, 09471, 51370 #### [facility] [address] [place] [address], [place] Sodium [Moles/Vol] 127 mmol/L Low 136-145 [facility] Comment on above: Order Comment: No: D o not add to previous draw Performed By: #### 2 5508, 67989, 13281, 24925, 70583 #### [facility] [address] [place] [address], [place] Urea nitrogen [Mass/Vol] 33 mg/dL High 7-25 [facility] Comment on above: Order Comment: No: D o not add to previous draw Performed By: #### 2 5508, 75653, 49878, 27252, 89584 #### [facility] [address] [place] [address], [facility] CREATININE URINE RANDOMon Creatinine (U) [Mass/Vol] 59.0 mg/dL Normal [facility] Comment on above: Order Comment: Yes: Add to Previous draw if able Result Comment: Ther e are no established reference values for random urine specimens Performed By: #### 2 5508, 37587, 67846, 15982, 92631 #### [facility] [address] [place] [address], [facility] MAGNESIUM BLOODon 08-11-2020 Magnesium [Mass/Vol] 1.7 mg/dL Low 1.9-2.7 [facility] Comment on above: Order Comment: No: D o not add to previous draw Performed By: #### 2 5508, 09336, 13919, 68827, 95396 #### [facility] [address] [place] [address], [facility] SODIUM URINE RANDOMon 2020 Sodium (U) [Moles/Vol] 90 mmol/L Normal [facility] Comment on above: Order Comment: Yes: Add to Previous draw if able Result Comment: Ther e are no established reference values for random urine specimens Performed By: #### 2 5508, 47512, 41923, 57828, 74753 #### [facility] [address] [place] [address], [facility] TACROLIMUSon 08-11-2020 Tacrolimus (Bld) [Mass/Vol] 6.3 ng/mL Normal 5.0-20.0 [facility] Comment on above: Order Comment: Yes: Add to Previous draw if able Result Comment: The SANDHU TOOL POLISHING MACHINE OPERATOR Tacrolimus assay is a delayed one-step immunoassay for the quantitative determination of tacrolimus in human whole blood using the chemiluminescent microparticle immunoassay (CMIA) technology with flexible assay protocols, referred to as Chemiflex. Performed By: #### 2 5508, 12632, 38017, 93016, 87509 #### [facility] [address] [place] [address], [place] BASIC METABOLIC PANELon 04-2 Calcium [Mass/Vol] 8.3 mg/dL Low 8.6-10.3 [facility] Comment on above: Order Comment: Yes: Add to Previous draw if able Performed By: #### 2 5508, 00538, 22373, 50676, 24690 #### [facility] [address] [place] [address], [place] Chloride [Moles/Vol] 102 mmol/L Normal 98-107 [facility] Comment on above: Order Comment: Yes: Add to Previous draw if able Performed By: #### 2 5508, 12108, 87319, 36828, 77996 #### [facility] [address] [place] [address], [place] CO2 [Moles/Vol] 20 mmol/L Low 21-31 [facility] Comment on above: Order Comment: Yes: Add to Previous draw if able Performed By: #### 2 5508, 45154, 31226, 16245, 77782 #### [facility] [address] [place] [address], [place] Creatinine [Mass/Vol] 0.78 mg/dL Normal 0.70-1.30 [facility] Comment on above: Order Comment: Yes: Add to Previous draw if able Performed By: #### 2 5508, 35541, 57558, 62152, 13298 #### [facility] [address] [place] [address], [place] GFR/1.73 sq M.predicted among blacks MDRD (S/P/Bld) [Vol rate/Area] mL/min/{1.73_m2} Normal >60 [facility] Comment on above: Order Comment: Yes: Add to Previous draw if able Performed By: #### 2 5508, 63113, 64535, 30478, 64333 #### [facility] [address] [place] [address], [place] GFR/1.73 sq M.predicted among non-blacks MDRD (S/P/Bld) [Vol rate/Area] mL/min/{1.73_m2} Normal >60 [facility] Comment on above: Order Comment: Yes: Add to Previous draw if able Performed By: #### 2 5508, 88164, 03231, 41780, 25066 #### [facility] [address] [place] [address], [place] Glucose [Mass/Vol] 199 mg/dL High 70-100 [facility] Comment on above: Order Comment: Yes: Add to Previous draw if able Performed By: #### 2 5508, 85866, 14826, 82414, 63599 #### [facility] [address] [place] [address], [place] Potassium [Moles/Vol] 4.9 mmol/L Normal 3.5-5.1 [facility] Comment on above: Order Comment: Yes: Add to Previous draw if able Performed By: #### 2 5508, 81450, 19143, 37114, 35783 #### [facility] [address] [place] [address], [place] Sodium [Moles/Vol] 129 mmol/L Low 136-145 [facility] Comment on above: Order Comment: Yes: Add to Previous draw if able Performed By: #### 2 5508, 49106, 00316, 90814, 00461 #### [facility] [address] [place] [address], [place] Urea nitrogen [Mass/Vol] 33 mg/dL High 7-25 [facility] Comment on above: Order Comment: Yes: Add to Previous draw if able Performed By: #### 2 5508, 12227, 02387, 46880, 79312 #### [facility] [address] [place] [address], [place] CBC COMPLETE BLOOD COUNTon 0 4-26-2021 Erythrocyte distribution width (RBC) [Ratio] 12.9 % Normal 11.5-15.0 [facility] Comment on above: Order Comment: No: D o not add to previous draw Performed By: #### 6 1405 #### [facility] [address] [place] [address], [facility] Hematocrit (Bld) [Volume fraction] 45.9 % Normal 39.0-50.0 [facility] Comment on above: Order Comment: No: D o not add to previous draw Performed By: #### 6 1405 #### [facility] [address] [place] [id number], [facility] Hemoglobin (Bld) [Mass/Vol] 15.3 g/dL Normal 13.0-17.0 [facility] Comment on above: Order Comment: No: D o not add to previous draw Performed By: #### 6 1405 #### [facility] [address] [place] [address], [facility] MCH (RBC) [Entitic mass] 29.3 pg Normal 27.0-33.0 [facility] Comment on above: Order Comment: No: D o not add to previous draw Performed By: #### 6 1405 #### [facility] [address] [place] [address], [facility] MCHC (RBC) [Mass/Vol] 33.3 g/dL Normal 32.0-35.0 [facility] Comment on above: Order Comment: No: D o not add to previous draw Performed By: #### 6 1405 #### [facility] [address] [place] [address], [facility] MCV (RBC) [Entitic vol] 87.8 fL Normal 82.0-98.0 [facility] Comment on above: Order Comment: No: D o not add to previous draw Performed By: #### 6 1405 #### [facility] [address] [place] [address], [facility] Nucleated RBC/100 WBC (Bld) [Ratio] 0 % Normal 0-0 [facility] Comment on above: Order Comment: No: D o not add to previous draw Performed By: #### 6 1405 #### [facility] [address] [facility] [place] [address], [facility] PLAT CNT 422 10*3/uL High 150-400 [facility] Comment on above: Order Comment: No: D o not add to previous draw Performed By: #### 6 1405 #### [facility] [address] [facility] [place] [address], [facility] RBC (Bld) [#/Vol] 5.23 10*6/uL Normal 4.20-5.70 [facility] Comment on above: Order Comment: No: D o not add to previous draw Performed By: #### 6 1405 #### [facility] [address] [facility] [address], [facility] WBC (Bld) [#/Vol] 7.77 10*3/uL Normal 4.00-10.60 [facility] Comment on above: Order Comment: No: D o not add to previous draw Performed By: #### 6 1405 #### [facility] [address] [facility] [place] [address], [facility] MAGNESIUM BLOODon 08-10-2020 Magnesium [Mass/Vol] 1.7 mg/dL Low 1.9-2.7 [facility] Comment on above: Order Comment: Yes: Add to Previous draw if able Performed By: #### 2 5508, 34449, 75817, 92774, 74612 #### [facility] [address] [facility] [place] [address], [facility] PORTABLE CHEST 1 VIEWon 07-17 PORTABLE CHEST 1 VIEW [facility] Department of Radiology [address] [place] [address] Patient Name: VISHAL DUKE : 1960 Sex: M Age: Race: White Pt. Location: [id number] Patient Status: I Ordered Date: 08/10/2020 7:40:00 [...] pneumothorax. Electronically signed: Brett Mc. Transcribed by: [id number], User Resident: Electronically Signed by: BRETT MC @ 08/10/2020 10:10 AM Normal [facility] Comment on above: Order Comment: No: D o not add to previous draw CV'D BY [facility] AT 1240 TACROLIMUSon 08-10-2020 Tacrolimus (Bld) [Mass/Vol] 11.2 ng/mL Normal 5.0-20.0 [facility] Comment on above: Order Comment: No: D o not add to previous draw Result Comment: The SANDHU TOOL POLISHING MACHINE OPERATOR Tacrolimus assay is a delayed one-step immunoassay for the quantitative determination of tacrolimus in human whole blood using the chemiluminescent microparticle immunoassay (CMIA) technology with flexible assay protocols, referred to as Chemiflex. Performed By: #### 2 5508, 18098, 40568, 13238, 12090 #### [facility] [address] TACROLIMUSon 08-09-2020 Tacrolimus (Bld) [Mass/Vol] 11.0 ng/mL Normal 5.0-20.0 [facility] Comment on above: Order Comment: Yes: Add to Previous draw if able Result Comment: The SANDHU TOOL POLISHING MACHINE OPERATOR Tacrolimus assay is a delayed one-step immunoassay for the quantitative determination of tacrolimus in human whole blood using the chemiluminescent microparticle immunoassay (CMIA) technology with flexible assay protocols, referred to as Chemiflex. Performed By: #### 2 5508, 17705, 86047, 89616, 18010 #### [facility] [address] [place] [address], [facility] TROPONIN-Ion 08-09-2020 Troponin I.cardiac [Mass/Vol] 5.31 ng/mL Critically high 0.00-0.04 [facility] Comment on above: Order Comment: Yes: Add to Previous draw if able Result Comment: M-DC EVIOUS CRITICAL RESULT REFERENCE RANGES: 0.00 - 0.04 ng/ml NORMAL 0.05 - 0.50 ng/ml INDETERMINATE > 0.50 ng/ml CONSISTENT WITH AN M.I. Performed By: #### 2 5508, 91227, 94115, 95687, 76386 #### [facility] [address] [place] [address], [facility] UFH HEPARIN ASSAYon 08-10-19 21 UNFRACTIONATED HEPARIN <0.10 Critically low 0.30-0.70 [facility] Comment on above: Result Comment: [place] roxaban and Apixaban will interfere with the anti Xa assay used to monitor UFH and LMWH. Results called. Accurately read back by Luiz Shaffer RN at 0709 Performed By: #### 3 0477 ####[facility] [place] [address], [facility] COMP METABOLIC PANELon 08-08 Albumin [Mass/Vol] 2.8 g/dL Low 3.5-5.7 [facility] Comment on above: Order Comment: Yes: Add to Previous draw if able Performed By: #### 2 5508, 73974, 54070, 60301, 19433 #### [facility] [address] [place] [id number], [facility] ALKALINE PHOSPH 70 IU/L Normal 34-104 [facility] Comment on above: Order Comment: Yes: Add to Previous draw if able Performed By: #### 2 5508, 39713, 52674, 96315, 67026 #### [facility] [address] [place] [address], [facility] ALT [Catalytic activity/Vol] 30 U/L Normal 7-52 [facility] Comment on above: Order Comment: Yes: Add to Previous draw if able Performed By: #### 2 5508, 00152, 17653, 42719, 24365 #### [facility] [address] [place] [address], [facility] AST [Catalytic activity/Vol] 48 U/L High 13-39 [facility] Comment on above: Order Comment: Yes: Add to Previous draw if able Performed By: #### 2 5508, 30995, 92058, 97383, 73391 #### [facility] [address] [place] [id number], [facility] Bilirubin [Mass/Vol] 0.9 mg/dL Normal 0.3-1.0 [facility] Comment on above: Order Comment: Yes: Add to Previous draw if able Performed By: #### 2 5508, 70764, 23788, 63412, 32302 #### [facility] [address] [place] [address], [place] Calcium [Mass/Vol] 8.1 mg/dL Low 8.6-10.3 [facility] Comment on above: Order Comment: Yes: Add to Previous draw if able Performed By: #### 2 5508, 08221, 21173, 24548, 51955 #### [facility] [address] [place] [address], [place] Chloride [Moles/Vol] 104 mmol/L Normal 98-107 [facility] Comment on above: Order Comment: Yes: Add to Previous draw if able Performed By: #### 2 5508, 99020, 87369, 07703, 76791 #### [facility] [address] [place] [address], [place] CO2 [Moles/Vol] 19 mmol/L Low 21-31 [facility] Comment on above: Order Comment: Yes: Add to Previous draw if able Performed By: #### 2 5508, 67760, 30201, 03916, 59085 #### [facility] [address] [place] [address], [place] Creatinine [Mass/Vol] 0.92 mg/dL Normal 0.70-1.30 [facility] Comment on above: Order Comment: Yes: Add to Previous draw if able Performed By: #### 2 5508, 58916, 20540, 54037, 64192 #### [facility] [address] [place] [address], [place] GFR/1.73 sq M.predicted among blacks MDRD (S/P/Bld) [Vol rate/Area] mL/min/{1.73_m2} Normal >60 [facility] Comment on above: Order Comment: Yes: Add to Previous draw if able Performed By: #### 2 5508, 56346, 55135, 99206, 84957 #### [facility] [address] [place] [address], [place] GFR/1.73 sq M.predicted among non-blacks MDRD (S/P/Bld) [Vol rate/Area] mL/min/{1.73_m2} Normal >60 [facility] Comment on above: Order Comment: Yes: Add to Previous draw if able Performed By: #### 2 5508, 22174, 62833, 84155, 90525 #### [facility] [address] [place] [address], [place] Glucose [Mass/Vol] 159 mg/dL High 70-100 [facility] Comment on above: Order Comment: Yes: Add to Previous draw if able Performed By: #### 2 5508, 45248, 30505, 11458, 47148 #### [facility] [address] [place] [address], [place] Potassium [Moles/Vol] 5.2 mmol/L High 3.5-5.1 [facility] Comment on above: Order Comment: Yes: Add to Previous draw if able Performed By: #### 2 5508, 36430, 75429, 69312, 07924 #### [facility] [address] [place] [address], [place] Protein [Mass/Vol] 5.5 g/dL Low 6.0-8.3 [facility] Comment on above: Order Comment: Yes: Add to Previous draw if able Performed By: #### 2 5508, 12572, 18796, 07357, 35162 #### [facility] [address] [place] [address], [place] Sodium [Moles/Vol] 133 mmol/L Low 136-145 [facility] Comment on above: Order Comment: Yes: Add to Previous draw if able Performed By: #### 2 5508, 04120, 64439, 00015, 51525 #### [facility] [address] [place] [address], [place] Urea nitrogen [Mass/Vol] 35 mg/dL High 7-25 [facility] Comment on above: Order Comment: Yes: Add to Previous draw if able Performed By: #### 2 5508, 85562, 45955, 88163, 12115 #### [facility] [address] [facility] [place] [place] [address], [facility] TACROLIMUSon 08-08-2020 Tacrolimus (Bld) [Mass/Vol] 7.8 ng/mL Normal 5.0-20.0 [facility] Comment on above: Order Comment: Unkno wn Result Comment: The SANDHU TOOL POLISHING MACHINE OPERATOR Tacrolimus assay is a delayed one-step immunoassay for the quantitative determination of tacrolimus in human whole blood using the chemiluminescent microparticle immunoassay (CMIA) technology with flexible assay protocols, referred to as Chemiflex. Performed By: #### 2 5508, 60808, 04060, 44050, 72299 #### [facility] [address] [address] [address] UFH HEPARIN ASSAYon 08-09-19 21 UNFRACTIONATED HEPARIN 0.74 IU/mL High 0.30-0.70 [facility] Comment on above: Result Comment: [place] roxaban and Apixaban will interfere with the anti Xa assay used to monitor UFH and LMWH. Performed By: #### 3 0477 ####[facility] C REACTIVE PROTEINon 021 CRP [Mass/Vol] 75.8 mg/L High 0.0-7.0 [facility] Comment on above: Order Comment: No: D o not add to previous draw CV'D BY IMM LAB AT 1240 Performed By: #### 6 1405 #### [facility] [address] [facility] [place] [address], [facility] SEDIMENTATION RATEon 021 SED RATE 30 mm/hr High 0-10 [facility] Comment on above: Order Comment: No: D o not add to previous draw Performed By: #### 6 1405 #### [facility] [address] [place] [address], [facility] TACROLIMUSon 04-23-2021 Tacrolimus (Bld) [Mass/Vol] 9.1 ng/mL Normal 5.0-20.0 [facility] Comment on above: Order Comment: Unkno wn Result Comment: The SANDHU TOOL POLISHING MACHINE OPERATOR Tacrolimus assay is a delayed one-step immunoassay for the quantitative determination of tacrolimus in human whole blood using the chemiluminescent microparticle immunoassay (CMIA) technology with flexible assay protocols, referred to as Chemiflex. Performed By: #### 9 9914 #### [facility] [address] [facility] TROPONIN-Ion 08-07-2020 Troponin I.cardiac [Mass/Vol] 7.37 ng/mL Critically high 0.00-0.04 [facility] Comment on above: Order Comment: Yes: Add to Previous draw if able Result Comment: M-DC EVIOUS CRITICAL RESULT 42.94 REFERENCE RANGES: 0.00 - 0.04 ng/ml NORMAL 0.05 - 0.50 ng/ml INDETERMINATE > 0.50 ng/ml CONSISTENT WITH AN M.I. Performed By: #### 2 5508, 30478, 60009, 91710, 74396 #### [facility] [address] [facility] UFH HEPARIN ASSAYon 08-08-19 UNFRACTIONATED HEPARIN 0.48 IU/mL Normal 0.30-0.70 [facility] Comment on above: Result Comment: [place] roxaban and Apixaban will interfere with the anti Xa assay used to monitor UFH and LMWH. Performed By: #### 3 0477 ####[facility] [facility] CBC COMPLETE BLOOD COUNTon 0 08-06-2020 Erythrocyte distribution width (RBC) [Ratio] 13.2 % Normal 11.5-15.0 [facility] Comment on above: Order Comment: Yes: Add to Previous draw if able Performed By: #### 2 5508, 86854, 84834, 41876, 84614 #### [facility] [address] [place] [address], [facility] Hematocrit (Bld) [Volume fraction] 44.8 % Normal 39.0-50.0 [facility] Comment on above: Order Comment: Yes: Add to Previous draw if able Performed By: #### 2 5508, 01661, 36816, 66088, 53404 #### [facility] [address] [place] [address], [facility] Hemoglobin (Bld) [Mass/Vol] 14.8 g/dL Normal 13.0-17.0 [facility] Comment on above: Order Comment: Yes: Add to Previous draw if able Performed By: #### 2 5508, 34451, 44341, 91953, 08378 #### [facility] [address] [place] [address], [facility] MCH (RBC) [Entitic mass] 29.0 pg Normal 27.0-33.0 [facility] Comment on above: Order Comment: Yes: Add to Previous draw if able Performed By: #### 2 5508, 87500, 98895, 70791, 90942 #### [facility] [address] [place] [address], [facility] MCHC (RBC) [Mass/Vol] 33.0 g/dL Normal 32.0-35.0 [facility] Comment on above: Order Comment: Yes: Add to Previous draw if able Performed By: #### 2 5508, 31532, 89813, 82675, 09819 #### [facility] [address] [place] [id number], [facility] MCV (RBC) [Entitic vol] 87.8 fL Normal 82.0-98.0 [facility] Comment on above: Order Comment: Yes: Add to Previous draw if able Performed By: #### 2 5508, 91753, 27892, 02940, 41427 #### [facility] [address] [place] [id number], [place] Nucleated RBC/100 WBC (Bld) [Ratio] 0 % Normal 0-0 [facility] Comment on above: Order Comment: Yes: Add to Previous draw if able Performed By: #### 2 5508, 26453, 02279, 07430, 53338 #### [facility] [address] [place] [address], [facility] PLAT CNT 367 10*3/uL Normal 150-400 [facility] Comment on above: Order Comment: Yes: Add to Previous draw if able Performed By: #### 2 5508, 17269, 24793, 42471, 24769 #### [facility] [address] [place] [address], [facility] RBC (Bld) [#/Vol] 5.10 10*6/uL Normal 4.20-5.70 [facility] Comment on above: Order Comment: Yes: Add to Previous draw if able Performed By: #### 2 5508, 20001, 05753, 05310, 02148 #### [facility] [address] [place] [address], [facility] WBC (Bld) [#/Vol] 3.94 10*3/uL Low 4.00-10.60 [facility] Comment on above: Order Comment: Yes: Add to Previous draw if able Performed By: #### 2 5508, 04549, 59666, 13837, 04229 #### [facility] [address] COMP METABOLIC PANELon 08-06 Albumin [Mass/Vol] 3.0 g/dL Low 3.5-5.7 [facility] Comment on above: Order Comment: No: D o not add to previous drawLABS DRAWN IN SAME HAND PAUSED IV. PT IS TO REMAIN FACE DOWN ONSTOMACH PER RN SO THAT IS THE ONLY PLACE WE CAN DRAW FROM RIGHT NOW. Performed By: #### 2 5508, 21535, 57822, 08738, 97969 #### [facility] [address] [place] [address], [facility] ALKALINE PHOSPH 74 IU/L Normal 34-104 [facility] Comment on above: Order Comment: No: D o not add to previous drawLABS DRAWN IN SAME HAND PAUSED IV. PT IS TO REMAIN FACE DOWN ONSTOMACH PER RN SO THAT IS THE ONLY PLACE WE CAN DRAW FROM RIGHT NOW. Performed By: #### 2 5508, 11218, 88411, 25385, 78572 #### [facility] [address] [place] [address], [facility] ALT [Catalytic activity/Vol] 42 U/L Normal 7-52 [facility] Comment on above: Order Comment: No: D o not add to previous drawLABS DRAWN IN SAME HAND PAUSED IV. PT IS TO REMAIN FACE DOWN ONSTOMACH PER RN SO THAT IS THE ONLY PLACE WE CAN DRAW FROM RIGHT NOW. Performed By: #### 2 5508, 16585, 32806, 68048, 08499 #### [facility] [address] [place] [address], [facility] AST [Catalytic activity/Vol] 112 U/L High 13-39 [facility] Comment on above: Order Comment: No: D o not add to previous drawLABS DRAWN IN SAME HAND PAUSED IV. PT IS TO REMAIN FACE DOWN ONSTOMACH PER RN SO THAT IS THE ONLY PLACE WE CAN DRAW FROM RIGHT NOW. Performed By: #### 2 5508, 26941, 91523, 08562, 22079 #### [facility] [address] [place] [address], [facility] Bilirubin [Mass/Vol] 1.4 mg/dL High 0.3-1.0 [facility] Comment on above: Order Comment: No: D o not add to previous drawLABS DRAWN IN SAME HAND PAUSED IV. PT IS TO REMAIN FACE DOWN ONSTOMACH PER RN SO THAT IS THE ONLY PLACE WE CAN DRAW FROM RIGHT NOW. Performed By: #### 2 5508, 57524, 89352, 99917, 71299 #### [facility] [address] [place] [address], [place] Calcium [Mass/Vol] 8.3 mg/dL Low 8.6-10.3 [facility] Comment on above: Order Comment: No: D o not add to previous drawLABS DRAWN IN SAME HAND PAUSED IV. PT IS TO REMAIN FACE DOWN ONSTOMACH PER RN SO THAT IS THE ONLY PLACE WE CAN DRAW FROM RIGHT NOW. Performed By: #### 2 5508, 47069, 75998, 00780, 05004 #### [facility] [address] [place] [address], [facility] Chloride [Moles/Vol] 105 mmol/L Normal 98-107 [facility] Comment on above: Order Comment: No: D o not add to previous drawLABS DRAWN IN SAME HAND PAUSED IV. PT IS TO REMAIN FACE DOWN ONSTOMACH PER RN SO THAT IS THE ONLY PLACE WE CAN DRAW FROM RIGHT NOW. Performed By: #### 2 5508, 31694, 96938, 08459, 42286 #### [facility] [address] [place] [address], [facility] CO2 [Moles/Vol] 20 mmol/L Low 21-31 [facility] Comment on above: Order Comment: No: D o not add to previous drawLABS DRAWN IN SAME HAND PAUSED IV. PT IS TO REMAIN FACE DOWN ONSTOMACH PER RN SO THAT IS THE ONLY PLACE WE CAN DRAW FROM RIGHT NOW. Performed By: #### 2 5508, 68720, 32037, 62274, 82231 #### [facility] [address] [place] [address], [facility] Creatinine [Mass/Vol] 0.91 mg/dL Normal 0.70-1.30 [facility] Comment on above: Order Comment: No: D o not add to previous drawLABS DRAWN IN SAME HAND PAUSED IV. PT IS TO REMAIN FACE DOWN ONSTOMACH PER RN SO THAT IS THE ONLY PLACE WE CAN DRAW FROM RIGHT NOW. Performed By: #### 2 5508, 95643, 55350, 73234, 28125 #### [facility] [address] [place] [address], [facility] GFR/1.73 sq M.predicted among blacks MDRD (S/P/Bld) [Vol rate/Area] mL/min/{1.73_m2} Normal >60 [facility] Comment on above: Order Comment: No: D o not add to previous drawLABS DRAWN IN SAME HAND PAUSED IV. PT IS TO REMAIN FACE DOWN ONSTOMACH PER RN SO THAT IS THE ONLY PLACE WE CAN DRAW FROM RIGHT NOW. Performed By: #### 2 5508, 83093, 57087, 14681, 94693 #### [facility] [address] [place] [address], [facility] GFR/1.73 sq M.predicted among non-blacks MDRD (S/P/Bld) [Vol rate/Area] mL/min/{1.73_m2} Normal >60 [facility] Comment on above: Order Comment: No: D o not add to previous drawLABS DRAWN IN SAME HAND PAUSED IV. PT IS TO REMAIN FACE DOWN ONSTOMACH PER RN SO THAT IS THE ONLY PLACE WE CAN DRAW FROM RIGHT NOW. Performed By: #### 2 5508, 03111, 32795, 16079, 95774 #### [facility] [address] [place] [address], [place] Glucose [Mass/Vol] 153 mg/dL High 70-100 [facility] Comment on above: Order Comment: No: D o not add to previous drawLABS DRAWN IN SAME HAND PAUSED IV. PT IS TO REMAIN FACE DOWN ONSTOMACH PER RN SO THAT IS THE ONLY PLACE WE CAN DRAW FROM RIGHT NOW. Performed By: #### 2 5508, 52859, 66365, 46908, 27751 #### [facility] [address] [place] [address], [place] Potassium [Moles/Vol] 4.7 mmol/L Normal 3.5-5.1 [facility] Comment on above: Order Comment: No: D o not add to previous drawLABS DRAWN IN SAME HAND PAUSED IV. PT IS TO REMAIN FACE DOWN ONSTOMACH PER RN SO THAT IS THE ONLY PLACE WE CAN DRAW FROM RIGHT NOW. Performed By: #### 2 5508, 56821, 53955, 70930, 50494 #### [facility] [address] [place] [address], [facility] Protein [Mass/Vol] 5.8 g/dL Low 6.0-8.3 [facility] Comment on above: Order Comment: No: D o not add to previous drawLABS DRAWN IN SAME HAND PAUSED IV. PT IS TO REMAIN FACE DOWN ONSTOMACH PER RN SO THAT IS THE ONLY PLACE WE CAN DRAW FROM RIGHT NOW. Performed By: #### 2 5508, 77580, 80779, 56152, 90501 #### [facility] [address] [place] [address], [facility] Sodium [Moles/Vol] 136 mmol/L Normal 136-145 [facility] Comment on above: Order Comment: No: D o not add to previous drawLABS DRAWN IN SAME HAND PAUSED IV. PT IS TO REMAIN FACE DOWN ONSTOMACH PER RN SO THAT IS THE ONLY PLACE WE CAN DRAW FROM RIGHT NOW. Performed By: #### 2 5508, 30601, 22934, 25938, 42979 #### [facility] [address] [place] [address], [facility] Urea nitrogen [Mass/Vol] 28 mg/dL High 7-25 [facility] Comment on above: Order Comment: No: D o not add to previous drawLABS DRAWN IN SAME HAND PAUSED IV. PT IS TO REMAIN FACE DOWN ONSTOMACH PER RN SO THAT IS THE ONLY PLACE WE CAN DRAW FROM RIGHT NOW. Performed By: #### 2 5508, 62152, 90326, 82955, 98093 #### [facility] [address] [place] [address], [facility] TACROLIMUSon 08-06-2020 Tacrolimus (Bld) [Mass/Vol] 9.2 ng/mL Normal 5.0-20.0 [facility] Comment on above: Order Comment: Unkno wnLABS DRAWN IN SAME HAND PAUSED IV. PT IS TO REMAIN FACE DOWN ONSTOMACH PER RN SO THAT IS THE ONLY PLACE WE CAN DRAW FROM RIGHT NOW. Result Comment: The SANDHU TOOL POLISHING MACHINE OPERATOR Tacrolimus assay is a delayed one-step immunoassay for the quantitative determination of tacrolimus in human whole blood using the chemiluminescent microparticle immunoassay (CMIA) technology with flexible assay protocols, referred to as Chemiflex. Performed By: #### 2 5508, 21967, 82054, 62733, 99875 #### [facility] [address] [facility] [place] [address], [facility] TROPONIN-Ion 08-06-2020 Troponin I.cardiac [Mass/Vol] 42.94 ng/mL Critically high 0.00-0.04 [facility] Comment on above: Result Comment: M-DC EVIOUS CRITICAL RESULT REFERENCE RANGES: 0.00 - 0.04 ng/ml NORMAL 0.05 - 0.50 ng/ml INDETERMINATE > 0.50 ng/ml CONSISTENT WITH AN M.I. Performed By: #### 2 5508, 13760, 24190, 65029, 61569 #### [facility] [address] [place] [address], [facility] Troponin I.cardiac [Mass/Vol] 46.69 ng/mL Critically high 0.00-0.04 [facility] Comment on above: Order Comment: No: D o not add to previous draw Result Comment: M-DC EVIOUS CRITICAL RESULT REFERENCE RANGES: 0.00 - 0.04 ng/ml NORMAL 0.05 - 0.50 ng/ml INDETERMINATE > 0.50 ng/ml CONSISTENT WITH AN M.I. Performed By: #### 3 5200 ####[facility] UFH HEPARIN ASSAYon 08-07-19 UNFRACTIONATED HEPARIN 0.34 IU/mL Normal 0.30-0.70 [facility] Comment on above: Order Comment: No: D o not add to previous draw Result Comment: [place] roxaban and Apixaban will interfere with the anti Xa assay used to monitor UFH and LMWH. Performed By: #### 6 1405 #### [facility] [address] [place] [address], [facility] CHLORIDE URon 08-05-2020 Chloride [Moles/Vol] 26.0 mmol/L Normal [facility] Comment on above: Order Comment: Yes: Add to Previous draw if able Result Comment: Ther e are no established reference values for random urine specimens Performed By: #### 2 5508, 60744, 34534, 07294, 80293 #### [facility] [address] [place] [id number], [facility] COMP METABOLIC PANELon 08-05 Albumin [Mass/Vol] 3.0 g/dL Low 3.5-5.7 [facility] Comment on above: Order Comment: Yes: Add to Previous draw if able Performed By: #### 2 5508, 07281, 92587, 68416, 04970 #### [facility] [address] [place] [address], [facility] ALKALINE PHOSPH 78 IU/L Normal 34-104 [facility] Comment on above: Order Comment: Yes: Add to Previous draw if able Performed By: #### 2 5508, 92060, 94684, 39645, 23532 #### [facility] [address] [place] [address], [place] ALT [Catalytic activity/Vol] 35 U/L Normal 7-52 [facility] Comment on above: Order Comment: Yes: Add to Previous draw if able Performed By: #### 2 5508, 41265, 90174, 86683, 61107 #### [facility] [address] [place] [address], [place] AST [Catalytic activity/Vol] 54 U/L High 13-39 [facility] Comment on above: Order Comment: Yes: Add to Previous draw if able Performed By: #### 2 5508, 50056, 43316, 50097, 93358 #### [facility] [address] [place] [address], [place] Bilirubin [Mass/Vol] 1.0 mg/dL Normal 0.3-1.0 [facility] Comment on above: Order Comment: Yes: Add to Previous draw if able Performed By: #### 2 5508, 73306, 59507, 24862, 50844 #### [facility] [address] [place] [address], [place] Calcium [Mass/Vol] 8.2 mg/dL Low 8.6-10.3 [facility] Comment on above: Order Comment: Yes: Add to Previous draw if able Performed By: #### 2 5508, 84485, 85268, 37954, 21601 #### [facility] [address] [place] [address], [place] Chloride [Moles/Vol] 105 mmol/L Normal 98-107 [facility] Comment on above: Order Comment: Yes: Add to Previous draw if able Performed By: #### 2 5508, 25934, 30069, 25165, 47843 #### [facility] [address] [place] [address], [place] CO2 [Moles/Vol] 19 mmol/L Low 21-31 [facility] Comment on above: Order Comment: Yes: Add to Previous draw if able Performed By: #### 2 5508, 09607, 05649, 77277, 00793 #### [facility] [address] [place] [address], [place] Creatinine [Mass/Vol] 0.89 mg/dL Normal 0.70-1.30 [facility] Comment on above: Order Comment: Yes: Add to Previous draw if able Performed By: #### 2 5508, 56839, 68143, 16939, 54779 #### [facility] [address] [place] [address], [place] GFR/1.73 sq M.predicted among blacks MDRD (S/P/Bld) [Vol rate/Area] mL/min/{1.73_m2} Normal >60 [facility] Comment on above: Order Comment: Yes: Add to Previous draw if able Performed By: #### 2 5508, 24785, 55297, 45466, 23328 #### [facility] [address] [place] [address], [place] GFR/1.73 sq M.predicted among non-blacks MDRD (S/P/Bld) [Vol rate/Area] mL/min/{1.73_m2} Normal >60 [facility] Comment on above: Order Comment: Yes: Add to Previous draw if able Performed By: #### 2 5508, 25177, 72387, 62865, 88599 #### [facility] [address] [place] [address], [place] Glucose [Mass/Vol] 174 mg/dL High 70-100 [facility] Comment on above: Order Comment: Yes: Add to Previous draw if able Performed By: #### 2 5508, 75255, 15047, 12599, 36865 #### [facility] [address] [place] [address], [place] Potassium [Moles/Vol] 4.9 mmol/L Normal 3.5-5.1 [facility] Comment on above: Order Comment: Yes: Add to Previous draw if able Performed By: #### 2 5508, 52436, 26761, 67661, 49512 #### [facility] [address] [place] [address], [place] Protein [Mass/Vol] 5.5 g/dL Low 6.0-8.3 [facility] Comment on above: Order Comment: Yes: Add to Previous draw if able Performed By: #### 2 5508, 72300, 32220, 84590, 01142 #### [facility] [address] [place] [address], [place] Sodium [Moles/Vol] 136 mmol/L Normal 136-145 [facility] Comment on above: Order Comment: Yes: Add to Previous draw if able Performed By: #### 2 5508, 79704, 38354, 51207, 02528 #### [facility] [address] [place] [address], [place] Urea nitrogen [Mass/Vol] 35 mg/dL High 7-25 [facility] Comment on above: Order Comment: Yes: Add to Previous draw if able Performed By: #### 2 5508, 02619, 46828, 79473, 45595 #### [facility] [address] [place] [address], [facility] LIVER BATTERYon 08-05-2020 Albumin [Mass/Vol] 3.2 g/dL Low 3.5-5.7 [facility] Comment on above: Performed By: #### 2 5508, 82123, 63403, 12339, 36409 #### [facility] [address] [place] [address], [place] ALKALINE PHOSPH 84 IU/L Normal 34-104 [facility] Comment on above: Performed By: #### 2 5508, 04282, 22360, 52368, 10442 #### [facility] [address] [place] [address], [place] ALT [Catalytic activity/Vol] 40 U/L Normal 7-52 [facility] Comment on above: Performed By: #### 2 5508, 89515, 91679, 03843, 03217 #### [facility] [address] [place] [address], [place] AST [Catalytic activity/Vol] 36 U/L Normal 13-39 [facility] Comment on above: Performed By: #### 2 5508, 61057, 51583, 04498, 22650 #### [facility] [address] [place] [address], [place] Bilirubin [Mass/Vol] 0.9 mg/dL Normal 0.3-1.0 [facility] Comment on above: Performed By: #### 2 5508, 43403, 87558, 74348, 87432 #### [facility] [address] [place] [address], [place] Bilirubin.direct [Mass/Vol] 0.3 mg/dL High 0.0-0.2 [facility] Comment on above: Performed By: #### 2 5508, 13042, 56542, 11991, 82941 #### [facility] [address] Protein [Mass/Vol] 5.9 g/dL Low 6.0-8.3 [facility] Comment on above: Performed By: #### 2 5508, 67600, 39021, 25583, 42926 #### [facility] [address] PORTABLE CHEST 1 VIEWon 07-17 PORTABLE CHEST 1 VIEW [facility] Department of Radiology [address] [place] [id number] Patient Name: VISHAL DUKE : 1960 Sex: M Age: Race: White Pt. Location: [id number] Patient Status: I Ordered Date: 08/05/2020 1:35:00 [...] reports Electronically signed: Mauricio Koo. Transcribed by: [email or web address], User Resident: ELADIA CABRERA Electronically Signed by: MAURICIO KOO @ 08/05/2020 02:08 AM I personally read this/these film(s) with this resident Normal [facility] Comment on above: Order Comment: Yes: Add to Previous draw if able POTASSIUM URon 08-05-2020 Potassium [Moles/Vol] 61.0 mmol/L Normal [facility] Comment on above: Order Comment: Yes: Add to Previous draw if able Result Comment: Ther e are no established reference values for random urine specimens Performed By: #### 2 5508, 51233, 06228, 95847, 59533 #### [facility] [address] [place] [address], [facility] PROCALCITONINon 08-05-2020 PROCALCITONIN 0.54 ng/mL High 0.00-0.10 [facility] Comment on above: Order Comment: Yes: [...] initial PCT<0.5ng/mL Performed By: #### 2 5508, 89931, 96966, 26998, 69235 #### [facility] [address] SODIUM URINE RANDOMon 2020 Sodium (U) [Moles/Vol] 54 mmol/L Normal [facility] Comment on above: Order Comment: Yes: Add to Previous draw if able Result Comment: Ther e are no established reference values for random urine specimens Performed By: #### 2 5508, 07316, 15853, 94615, 56691 #### [facility] [address] TACROLIMUSon 08-05-2020 Tacrolimus (Bld) [Mass/Vol] 11.2 ng/mL Normal 5.0-20.0 [facility] Comment on above: Order Comment: Unkno wn Result Comment: The SANDHU TOOL POLISHING MACHINE OPERATOR Tacrolimus assay is a delayed one-step immunoassay for the quantitative determination of tacrolimus in human whole blood using the chemiluminescent microparticle immunoassay (CMIA) technology with flexible assay protocols, referred to as Chemiflex. Performed By: #### 2 5508, 74834, 79685, 16030, 94545 #### [facility] [address] [place] [address], [facility] TROPONIN-Ion 08-05-2020 Troponin I.cardiac [Mass/Vol] 39.61 ng/mL Critically high 0.00-0.04 [facility] Comment on above: Order Comment: Yes: Add to Previous draw if able Result Comment: M-DC EVIOUS CRITICAL RESULT REFERENCE RANGES: 0.00 - 0.04 ng/ml NORMAL 0.05 - 0.50 ng/ml INDETERMINATE > 0.50 ng/ml CONSISTENT WITH AN M.I. Performed By: #### 2 5508, 62824, 25354, 63227, 97163 #### [facility] [address] [place] [address], [facility] Troponin I.cardiac [Mass/Vol] 36.67 ng/mL Critically high 0.00-0.04 [facility] Comment on above: Order Comment: No: D o not add to previous draw Result Comment: M-DC EVIOUS CRITICAL RESULT REFERENCE RANGES: 0.00 - 0.04 ng/ml NORMAL 0.05 - 0.50 ng/ml INDETERMINATE > 0.50 ng/ml CONSISTENT WITH AN M.I. Performed By: #### 2 5508, 96441, 52803, 62566, 02216 #### [facility] [address] [place] [address], [facility] Troponin I.cardiac [Mass/Vol] 2.03 ng/mL Critically high 0.00-0.04 [facility] Comment on above: Order Comment: Yes: Add to Previous draw if able Result Comment: M-TR OPONIN INITIAL CRITICAL HIGH; RESPUN AND RETESTED M-CRITICAL RESULT(S) REVIEWED, CALLED TO AND READ BACK BY ROSA M COTA RN AT 0902 REFERENCE RANGES: 0.00 - 0.04 ng/ml NORMAL 0.05 - 0.50 ng/ml INDETERMINATE > 0.50 ng/ml CONSISTENT WITH AN M.I. Performed By: #### 2 5508, 38620, 72264, 25681, 44060 #### [facility] [address] [place] [address], [facility] Troponin I.cardiac [Mass/Vol] 0.03 ng/mL Normal 0.00-0.04 [facility] Comment on above: Order Comment: Yes: Add to Previous draw if able Result Comment: REFE RENCE RANGES: 0.00 - 0.04 ng/ml NORMAL 0.05 - 0.50 ng/ml INDETERMINATE > 0.50 ng/ml CONSISTENT WITH AN M.I. Performed By: #### 2 5508, 31916, 77320, 15535, 22934 #### [facility] [address] UFH HEPARIN ASSAYon 08-06-19 UNFRACTIONATED HEPARIN 0.37 IU/mL Normal 0.30-0.70 [facility] Comment on above: Result Comment: Gabby roxaban and Apixaban will interfere with the anti Xa assay used to monitor UFH and LMWH. Performed By: #### 3 0477 ####[facility].[address] UNFRACTIONATED HEPARIN 0.17 IU/mL Low 0.30-0.70 [facility] Comment on above: Result Comment: [place] roxaban and Apixaban will interfere with the anti Xa assay used to monitor UFH and LMWH. Performed By: #### 6 1405 #### [facility] [address] COMP METABOLIC PANELon 08-04 Albumin [Mass/Vol] 3.1 g/dL Low 3.5-5.7 [facility] Comment on above: Order Comment: Yes: Add to Previous draw if able Performed By: #### 2 5508, 91337, 25539, 92956, 97654 #### [facility] [address] [facility] [address] ALKALINE PHOSPH 86 IU/L Normal 34-104 [facility] Comment on above: Order Comment: Yes: Add to Previous draw if able Performed By: #### 2 5508, 88411, 71331, 78858, 99673 #### [facility] [address] [place] [address], [facility] ALT [Catalytic activity/Vol] 47 U/L Normal 7-52 [facility] Comment on above: Order Comment: Yes: Add to Previous draw if able Performed By: #### 2 5508, 90361, 47498, 10686, 34274 #### [facility] [address] [place] [address], [place] AST [Catalytic activity/Vol] 45 U/L High 13-39 [facility] Comment on above: Order Comment: Yes: Add to Previous draw if able Performed By: #### 2 5508, 23328, 13309, 86293, 69419 #### [facility] [address] [place] [address], [place] Bilirubin [Mass/Vol] 0.5 mg/dL Normal 0.3-1.0 [facility] Comment on above: Order Comment: Yes: Add to Previous draw if able Performed By: #### 2 5508, 36715, 54193, 79358, 14122 #### [facility] [address] [place] [address], [place] Calcium [Mass/Vol] 8.4 mg/dL Low 8.6-10.3 [facility] Comment on above: Order Comment: Yes: Add to Previous draw if able Performed By: #### 2 5508, 28162, 08120, 37561, 70794 #### [facility] [address] [place] [address], [place] Chloride [Moles/Vol] 102 mmol/L Normal 98-107 [facility] Comment on above: Order Comment: Yes: Add to Previous draw if able Performed By: #### 2 5508, 55784, 10121, 39017, 91825 #### [facility] [address] [place] [address], [place] CO2 [Moles/Vol] 24 mmol/L Normal 21-31 [facility] Comment on above: Order Comment: Yes: Add to Previous draw if able Performed By: #### 2 5508, 81250, 30793, 63471, 84169 #### [facility] [address] [place] [address], [place] Creatinine [Mass/Vol] 1.04 mg/dL Normal 0.70-1.30 [facility] Comment on above: Order Comment: Yes: Add to Previous draw if able Performed By: #### 2 5508, 58540, 93269, 21730, 14966 #### [facility] [address] [place] [address], [place] GFR/1.73 sq M.predicted among blacks MDRD (S/P/Bld) [Vol rate/Area] mL/min/{1.73_m2} Normal >60 [facility] Comment on above: Order Comment: Yes: Add to Previous draw if able Performed By: #### 2 5508, 26751, 46550, 05662, 77464 #### [facility] [address] [place] [address], [place] GFR/1.73 sq M.predicted among non-blacks MDRD (S/P/Bld) [Vol rate/Area] mL/min/{1.73_m2} Normal >60 [facility] Comment on above: Order Comment: Yes: Add to Previous draw if able Performed By: #### 2 5508, 54501, 37831, 19247, 77604 #### [facility] [address] [place] [address], [place] Glucose [Mass/Vol] 196 mg/dL High 70-100 [facility] Comment on above: Order Comment: Yes: Add to Previous draw if able Performed By: #### 2 5508, 44137, 67246, 83162, 45199 #### [facility] [address] [place] [address], [place] Potassium [Moles/Vol] 4.6 mmol/L Normal 3.5-5.1 [facility] Comment on above: Order Comment: Yes: Add to Previous draw if able Performed By: #### 2 5508, 41717, 70576, 53987, 69290 #### [facility] [address] [place] [address], [place] Protein [Mass/Vol] 5.8 g/dL Low 6.0-8.3 [facility] Comment on above: Order Comment: Yes: Add to Previous draw if able Performed By: #### 2 5508, 45306, 82113, 10297, 03256 #### [facility] [address] Sodium [Moles/Vol] 135 mmol/L Low 136-145 [facility] Comment on above: Order Comment: Yes: Add to Previous draw if able Performed By: #### 2 5508, 39972, 95421, 64569, 16154 #### [facility] [address] Urea nitrogen [Mass/Vol] 38 mg/dL High 7-25 [facility] Comment on above: Order Comment: Yes: Add to Previous draw if able Performed By: #### 2 5508, 09089, 65181, 48282, 08895 #### [facility] [address] CPKon 08-04-2020 CK [Catalytic activity/Vol] 80 U/L Normal 30-223 [facility] Comment on above: Performed By: #### 2 5508, 58476, 24991, 64549, 01712 #### [facility] [address] [place] [address], [facility] LDH BLOODon 08-04-2020 LDH 569 Units/L High 140-271 [facility] Comment on above: Performed By: #### 2 5508, 86636, 84296, 97690, 12326 #### [facility] [address] [place] [address], [facility] MAGNESIUM BLOODon 08-04-2020 Magnesium [Mass/Vol] 2.3 mg/dL Normal 1.9-2.7 [facility] Comment on above: Performed By: #### 2 5508, 97801, 06554, 41974, 52029 #### [facility] [address] TACROLIMUSon 08-04-2020 Tacrolimus (Bld) [Mass/Vol] 17.4 ng/mL Normal 5.0-20.0 [facility] Comment on above: Order Comment: Yes: Add to Previous draw if able Result Comment: The S[employer]HU TOOL POLISHING MACHINE OPERATOR Tacrolimus assay is a delayed one-step immunoassay for the quantitative determination of tacrolimus in human whole blood using the chemiluminescent microparticle immunoassay (CMIA) technology with flexible assay protocols, referred to as Chemiflex. Performed By: #### 2 5508, 56154, 70708, 90909, 08549 #### [facility] [address] TROPONIN-Ion 08-04-2020 Troponin I.cardiac [Mass/Vol] 0.01 ng/mL Normal 0.00-0.04 [facility] Comment on above: Result Comment: REFE RENCE RANGES: 0.00 - 0.04 ng/ml NORMAL 0.05 - 0.50 ng/ml INDETERMINATE > 0.50 ng/ml CONSISTENT WITH AN M.I. Performed By: #### 2 5508, 08805, 93853, 20158, 44566 #### [facility] [address] *SARS-CoV-2 COVID-19on 08-03 SARS-CoV-2 (COVID-19) RNA ADELINE+probe Ql (Unsp spec) Detected Critically abnormal Not Detected [facility] Comment on above: Result Comment: Call andrew Reid on 08-03 at 1020. Performed By: #### 2 5508, 77540, 88546, 66133, 28689 #### [facility] [address] BASIC METABOLIC PANELon 07-16 Calcium [Mass/Vol] 8.4 mg/dL Low 8.6-10.3 [facility] Comment on above: Order Comment: No: D o not add to previous draw Pt in bath room askme to come back Performed By: #### 3 9400 #### [facility] [address] [place] [address], [facility] Chloride [Moles/Vol] 97 mmol/L Low 98-107 [facility] Comment on above: Order Comment: No: D o not add to previous draw Pt in bath room askme to come back Performed By: #### 3 5200 #### [facility] [address] [place] [address], [place] CO2 [Moles/Vol] 22 mmol/L Normal 21-31 [facility] Comment on above: Order Comment: No: D o not add to previous draw Pt in bath room askme to come back Performed By: #### 3 5200 #### [facility] [address] [place] [address], [facility] Creatinine [Mass/Vol] 0.90 mg/dL Normal 0.70-1.30 [facility] Comment on above: Order Comment: No: D o not add to previous draw Pt in bath room askme to come back Performed By: #### 3 5200 #### [facility] [address] [place] [address], [place] GFR/1.73 sq M.predicted among blacks MDRD (S/P/Bld) [Vol rate/Area] mL/min/{1.73_m2} Normal >60 [facility] Comment on above: Order Comment: No: D o not add to previous draw Pt in bath room askme to come back Performed By: #### 3 5200 #### [facility] [address] [place] [address], [place] GFR/1.73 sq M.predicted among non-blacks MDRD (S/P/Bld) [Vol rate/Area] mL/min/{1.73_m2} Normal >60 [facility] Comment on above: Order Comment: No: D o not add to previous draw Pt in bath room askme to come back Performed By: #### 3 5200 #### [facility] [address] [place] [address], [facility] Glucose [Mass/Vol] 167 mg/dL High 70-100 [facility] Comment on above: Order Comment: No: D o not add to previous draw Pt in bath room askme to come back Performed By: #### 3 5200 #### [facility] [address] [place] [address], [facility] Potassium [Moles/Vol] 4.4 mmol/L Normal 3.5-5.1 [facility] Comment on above: Order Comment: No: D o not add to previous draw Pt in bath room askme to come back Performed By: #### 3 5200 #### [facility] [address] [address], [facility] Sodium [Moles/Vol] 131 mmol/L Low 136-145 [facility] Comment on above: Order Comment: No: D o not add to previous draw Pt in bath room askme to come back Performed By: #### 3 5200 #### [facility] [address] [facility] [address] Urea nitrogen [Mass/Vol] 22 mg/dL Normal 7-25 [facility] Comment on above: Order Comment: No: D o not add to previous draw Pt in bath room askme to come back Performed By: #### 3 5200 #### [facility] 3000 [facility] [place] [address], [facility] CBC W/DIFFon 08-03-2020 ABS IMM GRANS 0.1 10*3/uL Normal 0.0-0.2 [facility] Comment on above: Order Comment: No: D o not add to previous draw Performed By: #### 6 1405 #### [facility] [address] [place] [address], [facility] ABS NEUTROPHILS 4.8 10*3/uL Normal 1.6-7.6 [facility] Comment on above: Order Comment: No: D o not add to previous draw Performed By: #### 6 1405 #### [facility] [address] [place] [address], [facility] Basophils (Bld) [#/Vol] 0.0 10*3/uL Normal 0.0-0.2 [facility] Comment on above: Order Comment: No: D o not add to previous draw Performed By: #### 6 1405 #### [facility] [address] [place] [address], [place] Basophils/100 WBC (Bld) 0.4 % Normal 0.0-1.0 [facility] Comment on above: Order Comment: No: D o not add to previous draw Performed By: #### 6 1405 #### [facility] [address] [place] [address], [facility] Eosinophils (Bld) [#/Vol] 0.0 10*3/uL Normal 0.0-0.5 [facility] Comment on above: Order Comment: No: D o not add to previous draw Performed By: #### 6 1405 #### [facility] [address] [place] [address], [facility] Eosinophils/100 WBC (Bld) 0.0 % Normal 0.0-6.0 [facility] Comment on above: Order Comment: No: D o not add to previous draw Performed By: #### 6 1405 #### [facility] [address] [place] [address], [facility] Erythrocyte distribution width (RBC) [Ratio] 13.6 % Normal 11.5-15.0 [facility] Comment on above: Order Comment: No: D o not add to previous draw Performed By: #### 6 1405 #### [facility] [address] [place] [address], [facility] Hematocrit (Bld) [Volume fraction] 45.6 % Normal 39.0-50.0 [facility] Comment on above: Order Comment: No: D o not add to previous draw Performed By: #### 6 1405 #### [facility] [address] [place] [address], [facility] Hemoglobin (Bld) [Mass/Vol] 15.9 g/dL Normal 13.0-17.0 [facility] Comment on above: Order Comment: No: D o not add to previous draw Performed By: #### 6 1405 #### [facility] [address] [place] [address], [facility] IMMATURE GRANS 0.9 % Normal 0.0-1.0 [facility] Comment on above: Order Comment: No: D o not add to previous draw Performed By: #### 6 1405 #### [facility] [address] [facility] [place] [address], [facility] Lymphocytes (Bld) [#/Vol] 0.4 10*3/uL Low 1.2-4.0 [facility] Comment on above: Order Comment: No: D o not add to previous draw Performed By: #### 6 1405 #### [facility] [address] [facility] [place] [address], [facility] Lymphocytes/100 WBC (Bld) 7.1 % Low 20.0-45.0 [facility] Comment on above: Order Comment: No: D o not add to previous draw Performed By: #### 6 1405 #### [facility] [address] [facility] [place] [address], [facility] MCH (RBC) [Entitic mass] 29.5 pg Normal 27.0-33.0 [facility] Comment on above: Order Comment: No: D o not add to previous draw Performed By: #### 6 1405 #### [facility] [address] [facility] [place] [address], [facility] MCHC (RBC) [Mass/Vol] 34.9 g/dL Normal 32.0-35.0 [facility] Comment on above: Order Comment: No: D o not add to previous draw Performed By: #### 6 1405 #### [facility] [address] [place] [address], [facility] MCV (RBC) [Entitic vol] 84.6 fL Normal 82.0-98.0 [facility] Comment on above: Order Comment: No: D o not add to previous draw Performed By: #### 6 1405 #### [facility] [address] [place] [id number], [facility] Monocytes (Bld) [#/Vol] 0.2 10*3/uL Normal 0.1-1.0 [facility] Comment on above: Order Comment: No: D o not add to previous draw Performed By: #### 6 1405 #### [facility] [address] [facility] [place] [address], [facility] MONOS 4.2 % Low 5.0-12.0 [facility] Comment on above: Order Comment: No: D o not add to previous draw Performed By: #### 6 1405 #### [facility] [address] [facility] [place] [address], [facility] Neutrophils/100 WBC (Bld) 87.4 % High 40.0-72.0 [facility] Comment on above: Order Comment: No: D o not add to previous draw Performed By: #### 6 1405 #### [facility] [address] [facility] [place] [address], [facility] Nucleated RBC/100 WBC (Bld) [Ratio] 0 % Normal 0-0 [facility] Comment on above: Order Comment: No: D o not add to previous draw Performed By: #### 6 1405 #### [facility] [address] [facility] [address], [facility] PLAT CNT 286 10*3/uL Normal 150-400 [facility] Comment on above: Order Comment: No: D o not add to previous draw Performed By: #### 6 1405 #### [facility] [address] [place] [id number], [facility] RBC (Bld) [#/Vol] 5.39 10*6/uL Normal 4.20-5.70 [facility] Comment on above: Order Comment: No: D o not add to previous draw Performed By: #### 6 1405 #### [facility] [address] WBC (Bld) [#/Vol] 5.47 10*3/uL Normal 4.00-10.60 [facility] Comment on above: Order Comment: No: D o not add to previous draw Performed By: #### 6 1405 #### [facility] [address] CPKon 08-03-2020 CK [Catalytic activity/Vol] 168 U/L Normal 30-223 [facility] Comment on above: Order Comment: No: D o not add to previous draw Pt in bath room askme to come back Performed By: #### 3 5200 #### [facility] [address] D DIMER TESTon 08-03-2020 D-DIMER TEST 5.09 mcg/mL FEU High 0.27-0.49 [facility] Comment on above: Order Comment: No: [...] AND CONFIRMED Performed By: #### 5 3629 ####[facility] [place] [address], [facility] FERRITINon 08-03-2020 Ferritin [Mass/Vol] 1079 ng/mL High 24-336 [facility] Comment on above: Order Comment: No: D o not add to previous draw Pt in bath room askme to come back Performed By: #### 3 5200 #### [facility] [address] [place] [address], [place] LDH BLOODon 08-03-2020 LDH 623 Units/L High 140-271 [facility] Comment on above: Order Comment: No: D o not add to previous draw Pt in bath room askme to come back Performed By: #### 3 5200 #### [facility] [address] [place] [address], [place] LIVER BATTERYon 08-03-2020 Albumin [Mass/Vol] 3.6 g/dL Normal 3.5-5.7 [facility] Comment on above: Order Comment: Yes: Add to Previous draw if able Performed By: #### 2 5508, 61451, 67531, 44080, 67630 #### [facility] [address] [place] [address], [facility] ALKALINE PHOSPH 91 IU/L Normal 34-104 [facility] Comment on above: Order Comment: Yes: Add to Previous draw if able Performed By: #### 2 5508, 86293, 39290, 94859, 87951 #### [facility] [address] [place] [address], [place] ALT [Catalytic activity/Vol] 34 U/L Normal 7-52 [facility] Comment on above: Order Comment: Yes: Add to Previous draw if able Performed By: #### 2 5508, 64813, 09432, 28108, 13700 #### [facility] [address] [place] [address], [place] AST [Catalytic activity/Vol] 40 U/L High 13-39 [facility] Comment on above: Order Comment: Yes: Add to Previous draw if able Performed By: #### 2 5508, 60684, 23542, 62819, 54972 #### [facility] [address] [place] [address], [place] Bilirubin [Mass/Vol] 0.7 mg/dL Normal 0.3-1.0 [facility] Comment on above: Order Comment: Yes: Add to Previous draw if able Performed By: #### 2 5508, 84937, 84948, 93324, 32460 #### [facility] [address] [place] [address], [facility] Bilirubin.direct [Mass/Vol] 0.1 mg/dL Normal 0.0-0.2 [facility] Comment on above: Order Comment: Yes: Add to Previous draw if able Performed By: #### 2 5508, 21684, 04871, 11312, 48430 #### [facility] [address] [facility] [place] [address], [facility] Protein [Mass/Vol] 6.3 g/dL Normal 6.0-8.3 [facility] Comment on above: Order Comment: Yes: Add to Previous draw if able Performed By: #### 2 5508, 07294, 29238, 31470, 26099 #### [facility] [address] [facility] [place] [address], [facility] MAGNESIUM BLOODon 08-03-2020 Magnesium [Mass/Vol] 2.3 mg/dL Normal 1.9-2.7 [facility] Comment on above: Order Comment: No: D o not add to previous draw Pt in bath room askme to come back Performed By: #### 3 5200 #### [facility] [address] [facility] [place] [address], [facility] PHOSPHORUS BLOODon Phosphate [Mass/Vol] 3.6 mg/dL Normal 2.5-5.0 [facility] Comment on above: Order Comment: No: D o not add to previous draw Pt in bath room askme to come back Performed By: #### 3 5200 #### [facility] [address] [facility] [place] [address], [facility] PORTABLE CHEST 1 VIEWon 07-16 PORTABLE CHEST 1 VIEW [facility] Department of Radiology [address] [place] [id number] Patient Name: VISHAL DUKE : 1960 Sex: M Age: Race: White Pt. Location: [id number] Patient Status: I Ordered Date: 08/03/2020 8:00:00 [...] pneumonia. Electronically signed: Dariela Vincent. Transcribed by: [email or web address], User Resident: Electronically Signed by: DARIELA VINCENT @ 08/03/2020 07:52 AM Normal [facility] Comment on above: Order Comment: No: D o not add to previous draw CV'D BY [facility] AT 1240 PROCALCITONINon 08-03-2020 PROCALCITONIN 0.31 ng/mL High 0.00-0.10 [facility] Comment on above: Order Comment: No: [...] initial PCT<0.5ng/mL Performed By: #### 2 5508, 95669, 65461, 39408, 60082 #### [facility] [address] [facility] 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 Performed By: #### 2 5508, 10336, 15217, 12987, 94036 #### [facility] [address] [place] [address], [facility] TROPONIN-Ion 08-03-2020 Troponin I.cardiac [Mass/Vol] 0.01 ng/mL Normal 0.00-0.04 [facility] Comment on above: Order Comment: No: D o not add to previous draw Pt in bath room askme to come back Result Comment: REFE RENCE RANGES: 0.00 - 0.04 ng/ml NORMAL 0.05 - 0.50 ng/ml INDETERMINATE > 0.50 ng/ml CONSISTENT WITH AN M.I. Performed By: #### 3 5200 #### [facility] [address] [place] [address], [place] URINALYSIS REFLEXon 08-04-19 Appearance (U) CLEAR Normal CLEAR [facility] Comment on above: Order Comment: No: D o not add to previous draw CV'D BY [facility] AT 1240 Performed By: #### 6 1405 #### [facility] [address] [place] [address], [place] Bilirubin Ql (U) Negative Normal NEGATIVE [facility] Comment on above: Order Comment: No: D o not add to previous draw CV'D BY [facility] AT 1240 Performed By: #### 6 1405 #### [facility] [address] [place] [address], [place] Color (U) YELLOW Normal YELLOW [facility] Comment on above: Order Comment: No: D o not add to previous draw CV'D BY [facility] AT 1240 Performed By: #### 6 1405 #### [facility] [address] [place] [address], [place] EPIS NONE SEEN Normal FEW,OCC,NO NE SEEN [facility] Comment on above: Order Comment: No: D o not add to previous draw CV'D BY [facility] AT 1240 Performed By: #### 6 1405 #### [facility] [address] [place] [address], [place] Glucose Ql (U) Negative Normal NEGATIVE [facility] Comment on above: Order Comment: No: D o not add to previous draw CV'D BY [facility] AT 1240 Performed By: #### 6 1405 #### [facility] [address] [place] [address], [place] Hemoglobin Ql (U) TRACE, RESULTS CHECKED Abnormal NEGATI VE [facility] Comment on above: Order Comment: No: D o not add to previous draw CV'D BY [facility] AT 1240 Performed By: #### 6 1405 #### [facility] [address] [place] [address], [place] KETONE Negative Normal NEGATIVE [facility] Comment on above: Order Comment: No: D o not add to previous draw CV'D BY [facility] AT 1240 Performed By: #### 6 1405 #### [facility] [address] [place] [address], [place] LEUK MARIA A Negative Normal NEGATIVE [facility] Comment on above: Order Comment: No: D o not add to previous draw CV'D BY [facility] AT 1240 Performed By: #### 6 1405 #### [facility] [address] [place] [address], [place] Nitrite Ql (U) Negative Normal NEGATIVE [facility] Comment on above: Order Comment: No: D o not add to previous draw CV'D BY [facility] AT 1240 Performed By: #### 6 1405 #### [facility] [address] [place] [address], [place] pH (U) 6.0 [pH] Normal 5.0-8.0 [facility] Comment on above: Order Comment: No: D o not add to previous draw CV'D BY [facility] AT 1240 Performed By: #### 6 1405 #### [facility] [address] [place] [address], [place] Protein Ql (U) Negative Normal NEGATIVE [facility] Comment on above: Order Comment: No: D o not add to previous draw CV'D BY [facility] AT 1240 Performed By: #### 6 1405 #### [facility] [address] [place] [address], [place] RBC 3-5 Abnormal NONE SEEN [facility] Comment on above: Order Comment: No: D o not add to previous draw CV'D BY [facility] AT 1240 Performed By: #### 6 1405 #### [facility] [address] [place] [address], [facility] SPEC GRAV 1.017 Normal 1.015-1.02 0 [facility] Comment on above: Order Comment: No: D o not add to previous draw CV'D BY [facility] AT 1240 Performed By: #### 6 1405 #### [facility] [address] [place] [address], [facility] WBC UA 0-2 Abnormal NONE SEEN [facility] Comment on above: Order Comment: No: D o not add to previous draw CV'D BY [facility] AT 1240 Performed By: #### 6 1405 #### [facility] [address] [facility] [place] [address], [facility] Vital Signs Date Time Vital Sign Value Performing Clinician Facility 01-06-2025 12:36-0400 Body height 179.07 cm Rosa M Gonzales MD Work Phone: [facility] 01-06-2025 12:36-0400 Body mass index (BMI) [Ratio] 28.7 kg/m2 Rosa M Gonzales MD Work Phone: [facility] 01-06-2025 12:36-0400 Body temperature 97.9 [degF] Rosa M Gonzales MD Work Phone: [facility] 01-06-2025 12:36-0400 Body weight 92.07 kg Rosa M Gonzales MD Work Phone: [facility] 01-06-2025 12:36-0400 Diastolic blood pressure 72 mm[Hg] Rosa M Gonzales MD Work Phone: [facility] 01-06-2025 12:36-0400 Heart rate 72 /min Rosa M Gonzales MD Work Phone: [facility] 01-06-2025 12:36-0400 Respiratory rate 14 /min Rosa M Gonzales MD Work Phone: [facility] 01-06-2025 12:36-0400 SaO2% (BldA) [Mass fraction] 99 % Rosa M Gonzales MD Work Phone: [facility] 01-06-2025 12:36-0400 Systolic blood pressure 117 mm[Hg] Rosa M Gonzales MD Work Phone: [facility] 01-03-2025 09:00-0400 Diastolic blood pressure 80 mm[Hg] Avelina Rodriges MD Work Phone: [facility] 01-03-2025 09:00-0400 Systolic blood pressure 130 mm[Hg] Avelina Rodriges MD Work Phone: [facility] 12-03-2024 13:53-0400 Body height 180.3 cm Rosa M Gonzales MD Work Phone: [facility] 12-03-2024 13:53-0400 Body mass index (BMI) [Ratio] 28.81 kg/m2 Rosa M Gonzales MD Work Phone: [facility] 12-03-2024 13:53-0400 Body weight 93.71 kg Rosa M Gonzales MD Work Phone: [facility] 12-03-2024 13:53-0400 Diastolic blood pressure 70 mm[Hg] Rosa M Gonzales MD Work Phone: [facility] Comment on above: laying down- 132/76 P 67, Sitting 110/70 P 64, Standing 104/72 P 76 12-03-2024 13:53-0400 Heart rate 65 /min Rosa M Gonzales MD Work Phone: [facility] 12-03-2024 13:53-0400 SaO2% (BldA) [Mass fraction] 94 % Rosa M Gonzales MD Work Phone: [facility] 12-03-2024 13:53-0400 Systolic blood pressure 122 mm[Hg] Rosa M Gonzales MD Work Phone: [facility] Comment on above: laying down- 132/76 P 67, Sitting 110/70 P 64, Standing 104/72 P 76 10-03-2024 11:26-0400 Body height 180.3 cm Rosa M Gonzales MD Work Phone: [facility] 10-03-2024 11:26-0400 Body mass index (BMI) [Ratio] 28.51 kg/m2 Rosa M Gonzales MD Work Phone: [facility] 10-03-2024 11:26-0400 Body weight 92.72 kg Rosa M Gonzales MD Work Phone: [facility] 10-03-2024 11:26-0400 Diastolic blood pressure 66 mm[Hg] Rosa M Gonzales MD Work Phone: [facility] 10-03-2024 11:26-0400 Heart rate 64 /min Rosa M Gonzales MD Work Phone: [facility] 10-03-2024 11:26-0400 SaO2% (BldA) [Mass fraction] 93 % Rosa M Gonzales MD Work Phone: [facility] 10-03-2024 11:26-0400 Systolic blood pressure 120 mm[Hg] Rosa M Gonzales MD Work Phone: [facility] 06-14-2024 08:37-0500 Diastolic blood pressure 80 mm[Hg] Efren Centeno MD Work Phone: [facility] 06-14-2024 08:37-0500 Systolic blood pressure 134 mm[Hg] Efren Centeno MD Work Phone: [facility] 03-21-2024 15:17-0500 Body height 180.3 cm Rosa M Gonzales MD Work Phone: [facility] 03-21-2024 15:17-0500 Body mass index (BMI) [Ratio] 28.28 kg/m2 Rosa M Gonzales MD Work Phone: [facility] 03-21-2024 15:17-0500 Body weight 91.99 kg Rosa M Gonzales MD Work Phone: [facility] 03-21-2024 15:17-0500 Diastolic blood pressure 72 mm[Hg] Rosa M Gonzales MD Work Phone: [facility] 03-21-2024 15:17-0500 Heart rate 72 /min Rosa M Gonzales MD Work Phone: [facility] 03-21-2024 15:17-0500 SaO2% (BldA) [Mass fraction] 92 % Rosa M Gonzales MD Work Phone: [facility] 03-21-2024 15:17-0500 Systolic blood pressure 112 mm[Hg] Rosa M Gonzales MD Work Phone: [facility] 03-04-2024 13:54-0500 Blood Pressure Location Rejiraghavendra BROWER [facility] 03-04-2024 13:54-0500 Body temperature 98.6 [degF] Reji BROWER [facility] 03-04-2024 13:54-0500 Diastolic blood pressure 75 mm[Hg] Reji BROWER [facility] 03-04-2024 13:54-0500 Heart rate 67 /min Reji BROWER [facility] 03-04-2024 13:54-0500 Respiratory rate 18 /min Reji BROWER [facility] 03-04-2024 13:54-0500 Systolic blood pressure 119 mm[Hg] Reji BROWER [facility] 01-29-2024 15:10-0400 Body height 180.3 cm Nicki Velez [employer] Work Phone: [facility] 01-29-2024 15:10-0400 Body mass index (BMI) [Ratio] 27.89 kg/m2 Nicki Velez [employer] Work Phone: [facility] 01-29-2024 15:10-0400 Body weight 90.72 kg Nicki Velez [employer] Work Phone: [facility] 01-29-2024 15:10-0400 Diastolic blood pressure 64 mm[Hg] Nicki Velez [employer] Work Phone: [facility] 01-29-2024 15:10-0400 Heart rate 56 /min Nicki Velez [employer] Work Phone: [facility] 01-29-2024 15:10-0400 SaO2% (BldA) [Mass fraction] 95 % Nicki Velez [employer] Work Phone: [facility] 01-29-2024 15:10-0400 Systolic blood pressure 124 mm[Hg] Nicki Velez [employer] Work Phone: [facility] 01-26-2024 12:00-0400 Body height 180.3 cm Nicki Velez [employer] Work Phone: [facility] 01-26-2024 12:00-0400 Body mass index (BMI) [Ratio] 27.89 kg/m2 Nicki Velez [employer] Work Phone: [facility] 01-26-2024 12:00-0400 Body weight 90.72 kg Nicki Velez [employer] Work Phone: [facility] 01-26-2024 12:00-0400 Diastolic blood pressure 70 mm[Hg] Nicki Velez [employer] Work Phone: [facility] 01-26-2024 12:00-0400 Heart rate 69 /min Nicki Velez [employer] Work Phone: [facility] 01-26-2024 12:00-0400 SaO2% (BldA) [Mass fraction] 97 % Nicki Velez [employer] Work Phone: [facility] 01-26-2024 12:00-0400 Systolic blood pressure 120 mm[Hg] Nicki Velez [employer] Work Phone: [facility] 01-11-2024 10:35-0400 Diastolic blood pressure 75 mm[Hg] Schmidt Sarmini [facility] 01-11-2024 10:35-0400 Heart rate 60 /min Schmidt Sarmini [facility] 01-11-2024 10:35-0400 Mean blood pressure 88 mm[Hg] Schmidt Sarmini [facility] 01-11-2024 10:35-0400 Respiratory rate 18 /min Schmidt Sarmini [facility] 01-11-2024 10:35-0400 SaO2% (BldA) [Mass fraction] 93 % Schmidt Sarmini [facility] 01-11-2024 10:35-0400 Systolic blood pressure 114 mm[Hg] Schmidt Sarmini [facility] 01-11-2024 10:25-0400 Diastolic blood pressure 64 mm[Hg] Schmidt Sarmini [facility] 01-11-2024 10:25-0400 Heart rate 70 /min Schmidt Sarmini [facility] 01-11-2024 10:25-0400 Mean blood pressure 79 mm[Hg] Schmidt Sarmini [facility] 01-11-2024 10:25-0400 Respiratory rate 20 /min Schmidt Sarmini [facility] 01-11-2024 10:25-0400 SaO2% (BldA) [Mass fraction] 94 % Schmidt Sarmini [facility] 01-11-2024 10:25-0400 Systolic blood pressure 110 mm[Hg] Schmidt Sarmini [facility] 01-11-2024 10:10-0400 Body temperature 97.7 [degF] Schmidt Sarmini [facility] 01-11-2024 10:10-0400 Diastolic blood pressure 59 mm[Hg] Schmidt Sarmini [facility] 01-11-2024 10:10-0400 Heart rate 70 /min Schmidt Sarmini [facility] 01-11-2024 10:10-0400 Mean blood pressure 71 mm[Hg] Schmidt Sarmini [facility] 01-11-2024 10:10-0400 Respiratory rate 19 /min Schmidt Sarmini [facility] 01-11-2024 10:10-0400 SaO2% (BldA) [Mass fraction] 95 % Schmidt Sarmini [facility] 01-11-2024 10:10-0400 Systolic blood pressure 96 mm[Hg] Schmidt Sarmini [facility] 01-11-2024 10:05-0400 Respiratory rate 22 /min Schmidt Sarmini [facility] 01-11-2024 09:55-0400 Respiratory rate 22 /min Schmidt Sarmini [facility] 01-11-2024 08:46-0400 Blood Pressure Location Schmidt Sarmini [facility] 01-11-2024 08:46-0400 Body temperature 97.52 [degF] Schmidt Sarmini [facility] 12-25-2023 09:28-0400 Diastolic blood pressure 88 mm[Hg] Schmidt Sarmini [facility] 12-25-2023 09:28-0400 Mean blood pressure 107 mm[Hg] Schmidt Sarmini [facility] 12-25-2023 09:28-0400 Systolic blood pressure 146 mm[Hg] Schmidt Sarmini [facility] 12-25-2023 09:14-0400 Blood Pressure Location Schmidt Sarmini [facility] 12-25-2023 09:14-0400 Diastolic blood pressure 85 mm[Hg] Schmidt Sarmini [facility] 12-25-2023 09:14-0400 Heart rate 60 /min Schmidt Sarmini [facility] 12-25-2023 09:14-0400 Systolic blood pressure 152 mm[Hg] Schmidt Sarmini [facility] 01-17-2022 11:53-0400 Blood Pressure Location Reji BROWER [facility] 01-17-2022 11:53-0400 Diastolic blood pressure 81 mm[Hg] Reji BROWER [facility] 01-17-2022 11:53-0400 Heart rate 63 /min Reji BROWER [facility] 01-17-2022 11:53-0400 Respiratory rate 18 /min Reji BROWER [facility] 01-17-2022 11:53-0400 Systolic blood pressure 129 mm[Hg] Reji BROWER [facility] 04-23-2021 17:40-0500 Diastolic blood pressure 70 mm[Hg] Rosa M Gonzales Work Phone: [facility] DO Work Phone: 04-23-2021 17:40-0500 Systolic blood pressure 138 mm[Hg] Rosa M Gonzales Work Phone: [facility] DO Work Phone: 04-23-2021 15:22-0500 Body height 180.34 cm Rosa M Gonzales Work Phone: [facility] DO Work Phone: 04-23-2021 15:22-0500 Body mass index (BMI) [Ratio] 29.57 kg/m2 Rosa M Gonzales Work Phone: [facility] DO Work Phone: 04-23-2021 15:22-0500 Body surface area Derived from formula 2.16 m2 Rosa M Gonzales Work Phone: [facility] DO Work Phone: 04-23-2021 15:22-0500 Body weight 96.16 kg Rosa M Gonzales Work Phone: [facility] DO Work Phone: 04-23-2021 15:22-0500 Diastolic blood pressure 77 mm[Hg] Rosa M Jami Janet Work Phone: [facility] DO Work Phone: 04-23-2021 15:22-0500 Heart rate 61 /min Rosa M R Janet Work Phone: [facility] DO Work Phone: 04-23-2021 15:22-0500 Systolic blood pressure 142 mm[Hg] Rosa M R Janet Work Phone: [facility] DO Work Phone: Encounters Encounter Date Encounter Type Care Provider Facility Start: 01-17-2025 End: 01-17-2025 [email or web address] Avelina Rodriges MD Work Phone: [facility] Start: 01-17-2025 End: 01-17-2025 [email or web address][employer]comheet Avelina Rodriges MD Work Phone: [facility] Start: 01-17-2025 End: 01-17-2025 Patient encounter procedure Avelina Rodriges MD Work Phone: [facility] Comment on above: Actinic keratosis (P rimary Dx); Seborrheic keratosis, inflamed; Encounter for removal of sutures Start: 01-06-2025 End: 01-06-2025 ambulatory Rsoa M Gonzales MD Work Phone: [facility] Work Phone: Start: 01-06-2025 End: 01-06-2025 Patient encounter procedure Patricia Jolley ARCHITECTURAL TECHNOLOGIST [facility] Work Phone: Start: 01-03-2025 End: 01-03-2025 BamEvermindo Cloopenheet Avelina Rodriges MD Work Phone: [facility] Start: 01-03-2025 End: 01-03-2025 Bamboo flowsmaddie Rodriges MD Work Phone: [facility] Start: 01-03-2025 End: 01-03-2025 Patient encounter procedure Avelina Rodriges MD Work Phone: [facility] Comment on above: Basal cell carcinoma of skin of scalp and neck; Actinic keratosis; Neoplasm of uncertain behavior Start: 01-03-2025 End: 01-03-2025 ambulatory AVELINA RODRIGES Not Available Start: 12-17-2024 End: 12-17-2024 Clinisync Result Encounter Generic External Data Provider [facility] External Department Unsolicited Start: 12-17-2024 End: 12-17-2024 Clinisync Result Encounter Generic External Data Provider [facility] External Department Unsolicited Start: 12-04-2024 End: 12-04-2024 Refill Rosa M Gonzales MD Work Phone: [facility] Comment on above: History of kidney tr ansplant (HCC) Start: 12-03-2024 End: 12-03-2024 Bamboo flowsheet Rosa M Gonzales MD Work Phone: [facility] Start: 12-03-2024 End: 12-03-2024 Bamboo flowsheet Rosa M Gonzales MD Work Phone: [facility] Start: 12-03-2024 End: 12-03-2024 Office outpatient visit 25 minutes Rosa M Gonzales MD Work Phone: [facility] Comment on above: Dizziness (Primary D x); [...] Bamboo flowsheet Alicia Fishman MD Work Phone: [facility] Start: 11-04-2024 End: 11-04-2024 Bamboo flowsheet Alicia Fishman MD Work Phone: [facility] Start: 11-04-2024 End: 11-04-2024 Office outpatient visit 15 minutes Alicia Fishman MD Work Phone: [facility] Comment on above: Seborrheic keratosis (Primary Dx); Lentigines; History of basal cell carcinoma; Actinic keratosis; Neoplasm of unspecified behavior of bone, soft tissue, and skin; Seborrheic keratosis, inflamed Start: 11-04-2024 End: 11-04-2024 ambulatory ALICIA FISHMAN Not Available Start: 10-22-2024 End: 10-22-2024 ambulatory [facility] Start: 10-17-2024 End: 10-17-2024 ambulatory MACRINA [facility] Start: 10-17-2024 End: 10-17-2024 ambulatory E[facility] Start: 10-15-2024 End: 10-15-2024 Clinisync Result [...] [facility] Start: 10-03-2024 End: 10-03-2024 Bamboo don Gonzales MD Work Phone: [facility] [...] Not Available Start: 09-18-2024 End: 09-18-2024 ambulatory AB [facility] Start: 09-10-2024 End: 09-10-2024 Clinisync Result [...] cell carcin darlene of skin of left nondenominational (Primary Dx) Start: 06-14-2024 End: 06-14-2024 ambulatory EFREN CENTENO Not Available Start: 06-12-2024 End: 06-12-2024 ambulatory [facility] Start: 06-07-2024 End: 06-07-2024 Clinisync Result Encounter Generic External Data Provider [facility] External Department Unsolicited Start: 06-07-2024 End: 06-07-2024 Clinisync Result Encounter Generic External Data Provider [facility] External Department Unsolicited Start: 05-14-2024 End: 05-14-2024 ambulatory [facility] Start: 05-07-2024 End: 05-07-2024 Clinisync Result Encounter Generic External Data Provider [facility] External Department Unsolicited Start: 05-07-2024 End: 05-07-2024 Clinisync Result Encounter Generic External Data Provider [facility] External Department Unsolicited Start: 05-02-2024 End: 05-02-2024 Bamboo flowsmaddie Fishman MD Work Phone: [facility] Start: 05-02-2024 End: 05-02-2024 Bampandao flowsmaddie Fishman MD Work Phone: [facility] [...] Not Available Start: 04-11-2024 End: 04-11-2024 ambulatory [facility] Start: 04-04-2024 End: 04-04-2024 Clinisync Result Encounter [...] [facility] Start: 03-21-2024 End: 03-21-2024 Chester Gonzales MD Work Phone: [facility] Start: 03-18-2024 End: 03-18-2024 ambulatory [facility] Start: 03-05-2024 End: 03-05-2024 Clinisync Result Encounter Generic External Data Provider [facility] External Department Unsolicited Start: 03-05-2024 End: 03-05-2024 Clinisync Result Encounter Generic External Data Provider [facility] External Department Unsolicited Start: 03-04-2024 End: 03-04-2024 ambulatory Reji BROWER Facility:[facility] Start: 03-04-2024 End: 03-04-2024 Patient encounter procedure Reji BROWER [facility] Start: 02-01-2024 End: 02-01-2024 Clinisync Result [...] Start: 01-29-2024 End: 01-29-2024 ambulatory Reji BROWER Facility:[facility] Start: 01-29-2024 End: 01-29-2024 Patient encounter procedure Reji BROWER [facility] Start: 01-26-2024 End: 01-26-2024 Office outpatient [...] Start: 01-11-2024 End: 01-11-2024 ambulatory Xochilt Graham Facility:[facility] Start: 01-11-2024 End: 01-11-2024 Patient encounter procedure Xochilt Graham [facility] Start: 12-28-2023 End: 12-28-2023 Clinisync Result Encounter Generic External Data Provider [facility] External Department Unsolicited Start: 12-28-2023 End: 12-28-2023 Clinisync Result Encounter Generic External Data Provider [facility] External Department Unsolicited Start: 12-25-2023 End: 12-25-2023 ambulatory Xochilt Graham Facility:[facility] Start: 12-25-2023 End: 12-25-2023 Patient encounter procedure Xochilt Graham [facility] Start: 12-08-2023 End: 12-08-2023 Refill Rosa M Gonzales MD Work Phone: [facility] Comment on above: History of kidney tr ansplant (CMS/HCC) Start: 05-29-2023 Clinisync Result Encounter Generic External [...] encounter procedure Reji BROWER [facility] Start: 09-28-2021 End: 09-29-[address] FEDERICO CHESTER Facility:[facility] Start: 05-15-2021 End: 06-07-2021 ambulatory ROSA M GONZALES Facility:[facility] Start: 04-23-2021 Office outpatient vi sit 25 minutes Rosa M Gonzales Work Phone: [facility] 250 DO Work Phone: Start: 12-02-2020 End: 12-04-2020 Evaluation and management of inpatient YONAS HERRERA Facility:[facility] Start: 12-01-2020 End: 12-01-2020 Emergency department patient visit REFERRED SELF Facility:[facility] Start: 10-29-2020 End: 10-30-2020 ambulatory ROSA M JANET Facility:[facility] Start: 08-02-2020 End: 08-19-2020 Evaluation and management of inpatient JUAN FERREIRA Facility:[facility] Procedures Date Procedure Procedure Detail Performing Clinician Start: 01-17-2025 End: 01-17-2025 CRYOTHERAPY SKIN LESION Avelina Rodrigse MD Work Phone: Start: 01-03-2025 SKIN REPAIR Avelina Rodriges MD Work Phone: Start: 01-03-2025 CRYOTHERAPY SKIN LESION Avelina Rodriges MD Work Phone: Start: 01-03-2025 MOHS SURGERY Avelina Rodriges MD Work Phone: Start: 12-17-2024 ALL CBC WITH AUTO DIFF Generic External Data Provider Start: 11-15-2024 ALL CBC WITH AUTO DIFF [...] Start: 10-14-2024 [facility] CMP (CMP) (FOR REMOTE [facility] USE) Gener ic External Data Provider Start: 10-14-2024 METRO BILIRUBIN, DIRECT Generic External Data Provider Start: 09-10-2024 Hemoglobin A1c/Hemoglobin.total in Blood Rosa M Gonzales MD Work Phone: Start: 09-10-2024 ALL CBC WITH AUTO DIFF Generic External Data Provider Start: 08-09-2024 ALL CBC WITH AUTO DIFF Generic External Data Provider Start: 06-19-2024 DESTRUCTION OF LESION Alicia Fishman MD Work Phone: Start: 06-13-2024 [facility] Efren Centeno MD Work Phone: Start: [...] Vann Start: 05-29-2023 TACROLIMUS ([id number]), BLOOD Generic [employer] Supervisor al Data Provider Start: 01-15-2023 Bilateral total nephrectomy Reji GENIE RICHARDS Start: 11-08-2022 History of placement of [...] Cardiac catheterization Anne Gonzales Work Phone: Colonoscopy Schmidtjaney Caba i Coronary artery bypass graft Rosa M Gonzales Work Phone: Coronary artery bypass grafts x 3 Reji BROWER Creation of graft fi stula for dialysis Rosa M Gonzales Work Phone: Extraction of wisdom tooth J durga Gonzales Work Phone: History of placement of stent for coronary artery disease Hx of heart artery stent Rosa M Gonzales MD Work Phone: Comment on above: Problem List clean-up per request of Phy s. EHR Cmte History of renal transplant Tania l transplant recipient Rosa M Gonzales Work Phone: History of renal transplant Kidn ey transplanted( Confirmed ) Reji BROWER History of renal transplant Hist ory of kidney transplant ([facility]) Rosa M Gonzales MD Work Phone: History of renal transplant Hist ory of kidney transplant (HCC) Rosa M Gonzales MD Work Phone: History of renal transplant Hist ory of kidney transplant (HCC) Rosa M Gonzales MD Work Phone: History of renal transplant Hx o f kidney transplant Rosa M Gonzales MD Work Phone: Comment on above: 2018 History of renal transplant Tania l transplant recipient Rosa M Gonzales MD Work Phone: Comment on above: 2018 Insertion of pacemak er pulse generator Rosa M Gonzales Work Phone: Placement of stent i n cardiac conduit Reji BROWER Total colonoscopy Rosa M Gonzales Work Phone: Transplant of kidney Kane Gonzales Work Phone: Plan of Treatment Date Care Activity Detail Author Start: 01-25-2034 Screening for malignant neoplasm of colon [facility] Start: 01-10-2034 Screening for malignant neoplasm of colon [facility] Start: 10-03-2025 Medicare Annual Wellness (AWV) Medicare Annual Wellness (AWV) [facility] Start: 07-22-2025 End: 07-22-2025 Patient encounter procedure 07/22/2025 1:15 PM EDT Office Visit [facility] [address] [place] [address] Alicia Fishman MD [address] [place] [address] [facility] Start: 01-17-2025 End: 01-17-2025 Patient encounter procedure 01/17/2025 12:15 PM EDT Office Visit [facility] [address] [place] [address] Avelina Rodriges MD [address] [place], [place] [id number] [facility] Start: 01-03-2025 End: 01-03-2025 Patient encounter procedure [facility] Comment on above: Arrived Start: 12-16-2024 Influenza vaccination Influenza Vaccine (#1) [facility] Start: 12-03-2024 End: 12-03-2024 Patient encounter procedure 12/03/2024 2:00 PM EDT Office Visit [facility] [address] [place] [id number] Rosa M Gonzales MD [address] [facility], [place] [id number] Arrived [facility] Comment on above: Arrived Start: 11-04-2024 End: 11-04-2024 Patient encounter procedure [facility] Comment on above: Arrived Start: 10-25-2024 Glaucoma screening Diabetes: Retinopathy Screening [facility] Start: 10-03-2024 End: 10-03-2024 Patient encounter procedure [facility] Comment on above: Arrived Start: 07-26-2024 Medicare Annual Wellness (AWV) Medicare Annual Wellness (AWV) [facility] Start: 06-19-2024 End: 06-19-2024 Patient encounter procedure 06/19/2024 10:50 AM EST Procedure Visit [facility] [address] [place] [address] Alicia Fishman MD [address] [place] [address] [facility] Start: 06-14-2024 End: 06-14-2024 Patient encounter procedure 06/14/2024 8:30 AM EST Office Visit [facility] [address] [place] [address] Efren Centeno MD [address] [place] [address] [facility] Start: 06-05-2024 Hemoglobin A1c measurement Diabetes: Hemoglobin A1C [facility] Start: 05-18-2024 Urine screening for protein Diabetes: Urine Protein Screening [facility] Start: 05-02-2024 End: 05-02-2024 Patient encounter procedure [facility] Comment on above: Arrived Start: 03-21-2024 End: 03-21-2024 Patient encounter procedure 03/21/2024 3:30 PM EST Office Visit [facility] [address] [place] [address] Rosa M Gonzales MD [address] [place] [address] Arrived [facility] Comment on above: Arrived Start: 12-17-2023 Influenza vaccination Influenza Vaccine (#1) [facility] Start: 11-09-2023 Medicare Annual Wellness (AWV) Medicare Annual Wellness (AWV) [facility] Start: 10-30-2023 End: 10-30-2023 Patient encounter procedure 10/30/2023 10:05 AM EDT Office Visit [facility] [address] [place] [phone] Alicia Fishman MD [address] [place] [address] [facility] Start: 08-16-2023 Hemoglobin A1c measurement Diabetes: Hemoglobin A1C [facility] Start: 02-01-2023 Screening for malignant neoplasm of colon [facility] Start: 12-27-1979 Urine screening for protein Diabetes: Urine Protein Screening [facility] Start: 1960 Screening for malignant neoplasm of colon [facility] Dermatopathology exam Dermatopat hology exam Pathology and Cytology Timed Neoplasm of unspecified behavior of bone, soft tissue, and skin Release Upon Ordering for 1 Occurrences starting 05/02/2024 [facility] Work Phone: Comment on above: Release Upon Ordering for 1 Occurrences starting 05/02/2024 Dermatopathology exam Dermatopat hology exam Pathology and Cytology Timed Neoplasm of unspecified behavior of bone, soft tissue, and skin Release Upon Ordering for 1 Occurrences starting 11/04/2024 [facility] Work Phone: Comment on above: Release Upon Ordering for 1 Occurrences starting 11/04/2024 Immunizations Immunization Date Immunization Notes Care Provider Maribel [facility] 01-26-2024 influenza, seasonal, injectable, preservative free Nicki Velez NP Work Phone: [facility] 01-26-2024 influenza virus vaccine, unspecified formulation Alicia Fishman MD Work Phone: [facility] 01-13-2023 influenza virus vaccine, unspecified formulation Rosa M Gonzales MD Work Phone: [facility] 01-13-2023 influenza, injectabl e, quadrivalent, preservative free Generic Provider [facility] 01-13-2022 influenza virus vaccine, unspecified formulation Schmidt Sarmini [facility] 01-13-2022 influenza, injectabl e, quadrivalent, preservative free Generic Provider [facility] 12-30-2021 Moderna Bivalent Booster Vaccination Generic Provider [facility] 12-30-2021 Moderna SARS-CoV-2 50mcg/0.5mL Booster Generic Provider [facility] 12-30-2021 SARS-CoV-2, Unspecified Generic Provider [facility] 07-21-2021 SARS-CoV-2 (COVID-19 ) mRNA-1273 vaccine Schmidt Sarmini [facility] Comment on above: Result Comment: 2023: [id number] 02-01-2021 influenza virus vaccine, unspecified formulation Schmidt Sarmini [facility] 02-01-2021 Seasonal, quadrivalent, recombinant, injectable influenza vaccine, preservative free Rosa M Gonzales Work Phone: [facility] 250 DO Work Phone: 01-06-2021 Moderna COVID-19 Vaccine 100 MCG/0.5ML Intramuscular Suspension Rosa M Gonzales Work Phone: [facility] Comment on above: Result Comment: 2023: [id number] 07-10-2020 Moderna COVID-19 Vaccine 100 MCG/0.5ML Intramuscular Suspension Rosa M Gonzales Work Phone: [facility] Comment on above: Result Comment: 2023: [id number] 06-12-2020 Moderna COVID-19 Vaccine 100 MCG/0.5ML Intramuscular Suspension Rosa M Gonzales Work Phone: [facility] Comment on above: Result Comment: 2023: [id number] 01-27-2020 influenza virus vaccine, unspecified formulation Schmidt Sarmini [facility] 01-27-2020 influenza, seasonal, injectable Rosa M Gonzales Work Phone: [facility] [employer] DO Work Phone: 01-22-2020 influenza virus vaccine, unspecified formulation Schmidt Sarmini [facility] 01-22-2020 Seasonal trivalent influenza vaccine, adjuvanted, preservative free Generic Provider [facility] 01-16-2020 influenza virus vaccine, unspecified formulation Rosa M Gonzales Work Phone: [facility] 01-16-2020 influenza, seasonal, injectable Generic Provider [facility] 02-05-2019 influenza virus vaccine, unspecified formulation Schmidt Sarmini [facility] 02-05-2019 Seasonal, quadrivalent, recombinant, injectable influenza vaccine, preservative free Rosa M [facility] Work Phone: 05-11-2018 influenza virus vaccine, unspecified formulation Schmidt Sarmini [facility] 05-11-2018 influenza, injectabl e, quadrivalent, preservative free Rosa M Gonzales Work Phone: [facility] [employer] DO Work Phone: 02-16-2018 influenza virus vaccine, unspecified formulation Schmidt Sarmini [facility] 02-16-2018 influenza, injectabl e, quadrivalent, preservative free Rosa M Gonzales Work Phone: [place] [address] DO Work Phone: 06-08-2017 influenza virus vaccine, unspecified formulation Schmidt Sarmini [facility] 06-08-2017 influenza, injectabl e, quadrivalent, preservative free Rosa M R Janet Work Phone: [place] [address] DO Work Phone: 12-16-2016 influenza virus vaccine, unspecified formulation Schmidt Sarmini [facility] 12-16-2016 influenza, injectabl e, quadrivalent, contains preservative Rosa M Gonzales Work Phone: [place] [address] DO Work Phone: 01-28-2015 influenza virus vaccine, unspecified formulation Schmidt Sarmini [facility] 01-28-2015 influenza, seasonal, injectable Rosa M Gonzales Work Phone: [facility] [employer] DO Work Phone: 07-10-2014 Moderna SARS-CoV-2 Vaccination Rosa M Gonzales MD Work Phone: [facility] 04-27-2012 influenza virus vaccine, whole virus Rosa M Gonzales Work Phone: [facility] 250 DO Work Phone: 04-27-2012 influenza, whole Xochilt morris [facility] NEGATED: Highlighted row has not occurred!12-25-2023 influenza virus vaccine, unspecified formulation Xochilt Graham [facility] Payers Date Payer Category Payer Private Health Insurance [id number] 2023 Medicare (Managed Care) [employer] M EDICARE ADVANTAGE Member Subscriber Plan / Payer (Effective 2023-Present) Name: Vishal Duke Relation to Subscriber: Self Name: Vishal Duke Payer ID: [id number] (NAIC) Type: Not on file Address: [place] [id number] 2023 Private Health Insurance [id number] 2022 Private Health Insurance [id number]. [id number] 2016 Medicare [id number]. [id number] 1960 Unknown [id number] 2.16.840.1.514317.3.579.2. 647 1960 Unknown [id number] 2.16.840.1.673802.3.579.2. 647 1960 Unknown [id number] 2.16.840.1.696576.3.579.2. 647 1960 Unknown [id number] 2.16.840.1.893664.3.579.2. 647 1960 Unknown [id number] 2.16.840.1.300472.3.579.2. 647 1960 Unknown [id number] 2.16.840.1.900164.3.579.2. 593 1960 Unknown [id number] 2.16.840.1.750151.3.579.2. 593 1960 Unknown [id number] 2.16.840.1.600750.3.579.2. 593 1960 Unknown [id number] 2.16.840.1.673241.3.579.2. 593 1960 Unknown [id number] 2.16.840.1.248373.3.579.2. 593 1960 Unknown [id number] 2.16.840.1.946617.3.579.2. 593 1960 Unknown [id number] 2.16.840.1.732455.3.579.2. 593 1960 Unknown [id number] 2.16.840.1.816516.3.579.2. 593 1960 Unknown [id number] 2.16.840.1.645285.3.579.2. 593 1960 Unknown [id number] 2.16.840.1.592607.3.579.2. 727 1960 Unknown [id number] 2.16.840.1.138375.3.579.2. 727 1960 Unknown [id number] 2.16.840.1.399352.3.579.2. 727 1960 Unknown [id number] 2.16.840.1.379705.3.579.2. 727 1960 Unknown [id number] 2.16.840.1.845667.3.579.2. 1259 1960 Unknown [id number] 2.16.840.1.829539.3.579.2. 1259 1960 Unknown [id number] 2.16.840.1.618584.3.579.2. 9 1960 Unknown [id number] 2.16.840.1.572303.3.579.2. 1258 1960 Unknown [id number] 2.16.840.1.087791.3.579.2. 1258 1960 Unknown [id number] 2.16.840.1.841402.3.579.2. 1258 1960 Unknown [id number] 2.16.840.1.410684.3.579.2. 1258 1960 Unknown [id number] 2.16.840.1.569057.3.579.2. 1258 1960 Unknown [id number] 2.16.840.1.204844.3.579.2. 1258 1960 Unknown [id number] 2.16.840.1.031345.3.579.2. 9 1959 Medicare [id number] 1959 Private Health Insurance [id number] Unknown Unknown [facility] [id number] Social History Date Type Detail Facility Start: 11-01-2022 End: 05-01-2023 No alcohol use No alcohol use [facility] Comment on above: 1-2 cups of coffee d aily.; Quit in 2008; Start: 01-01-2020 End: 10-30-2023 Tobacco smoking status Ex-smoker (finding) [facility] Start: 11-01-2022 End: 10-03-2024 Sex Assigned At Male [facility] End: 04-17-2007 History of tobacco use Current smoker [facility] End: 04-17-2007 History of tobacco use Cigarette Smoker [facility] Start: 11-06-2022 End: 10-30-2023 Tobacco use and exposure Smokeless tobacco non-user [facility] Start: 05-01-2023 End: 01-17-2025 Alcohol intake Ex-drinker (finding) [facility] Within the last year , have you been afraid of your partner or ex-partner? No [facility] Do you belong to any clubs or organizations such as latter day groups, unions, [...] Sex Assigned At Not on file [facility] Start: 06-29-2022 Gender identity Identifies as male gender (finding) [facility] Sex Male (finding) [facility] Start: 1960 Sex Assigned At Male [facility] Medical Equipment Procedure Code Equipment Code Equipment Origin al Text Equipment Identifier Dates Insertion, pacemaker Endocardial pacing lead [id number] FDA Start: 12-11-2020 Insertion, pacemaker Endocardial defibrillation lead [id number] FDA Start: 12-11-2020 Insertion, pacemaker Dual-chamber implantable defibrillator [id number] FDA Start: 12-11-2020 [id number] Start: 10-03-2024 End: 10-03-2025 Femoral artery c losure plug/patch, synthetic polymer [id number] [facility] Start: 12-09-2020 Functional Status Date Assessment Result Facility 10-03-2024 Patient Health Quest ionnaire 2 item (PHQ-2) [Reported] [facility] 03-04-2024 Functional Status N/A [facility] 01-11-2024 Functional Status N/A [facility] 12-25-2023 Functional Status N/A [facility] 01-17-2022 Functional Status N/A [facility] Clinical Notes 08-20-2020 to 01-17-2025 Avelina Rodriges MD - 01/17/2025 10:15 AM EDTCjosefina Rodriges MD - 01/03/2025 8:30 AM EDTTelephone Encounter - Rosa M Gonzales MD - 12/04/2024 5:08 PM EDTRosa M Gonzales MD - 12/03/2024 2:00 PM EDT Note Date & Type Note Facility 01-17-2025 History of Present illness Narrative Images from the original note were not included. Suture Removal Patient here for suture removal: No complaints of redness, drainage or swelling at site, compliant with wound care. Location: right parietal scalp Procedure Performed: Mohs Micrographic Surgery Date of Procedure: 01/03/2025 Medications: Mupirocin 2% ointment once daily with wound care Suture Removal Patient here for suture removal: No complaints of redness, drainage or swelling at site, compliant with wound care, suture are not intact Location: left hand 2 nd digit Procedure Performed: sutures places by urgent care in [place] after injury to finger 2 weeks ago per patient. Follow up Diagnosis: NUB Location: right parietal scalp Symptoms: bothersome Last visit: 01/03/2025 Current treatment: Here today for reassessment. Lesions: Location: left eyebrow Duration: recently noticed Quality: denies pain, denies itch, denies bleeding Modifying factors: none Associated symptoms: rough scaly Treatments: none All pertinent medical history, medications, and allergies were reviewed. General Exam: alert, oriented to person, place, and time, normal affect, well appearing Unaccompanied A focused exam completed based on patient reported problems, see below: Skin Exam 1. ACTINIC KERATOSIS Left medial Eyebrow Erythematous scaly papules Patient was counseled regarding [...] limited to risks of scarring, darker or seeing eye dog trainer pigmentary changes, recurrence, incomplete removal and infection. Method: Liquid nitrogen was used to treat the lesion(s) with two 5-10 second freeze-thaw cycles. Number of lesions treated: 1 Post-procedure instructions: Instructions were given orally and in writing. The office will be contacted if the lesion fails to resolve despite treatment, or if a side effect develops such as abnormal crusting, scabbing, redness or tenderness Cryotherapy, skin lesion - Left medial Eyebrow 2. SEBORRHEIC KERATOSIS, INFLAMED Right Occipital Scalp [place] and brown stuck on verrucous scaly papule [...] limited to risks of scarring, darker or seeing eye dog trainer pigmentary changes, recurrence, incomplete removal and infection. Method: Liquid nitrogen was used to treat the lesion(s) with two 5-10 second freeze-thaw cycles Number of lesions treated: 1 Post-procedure instructions: Instructions were given orally and in writing. The office will be contacted if the lesion fails to resolve despite treatment, or if a side effect develops such as abnormal crusting, scabbing, redness or tenderness Cryotherapy, skin lesion - Right Occipital Scalp 3. ENCOUNTER FOR REMOVAL OF SUTURES (2) Left 2nd Finger Tip, Right Parietal Scalp Sutures are intact, Skin edges are well-approximated, Mild erythema along incision line, Crusting noted along incision line, No drainage or edema noted on right parietal scalp Sutures are not intact, skin edges well-approximated, no drainage, or edema on left hand 2 nd digit Suture Removal: Procedure: Sutures removed without difficulty. Post-Procedure instructions: Instructed to discontinue wound care. Monitor for any signs or symptoms of infection. Next Visit: 6 months skin exam documented in this encounter [facility] 01-03-2025 History of Present illness Narrative Images from the original note were not included. Mohs Surgery Location: Right Parietal Scalp Date of biopsy: 11/04/2024 Diagnosis: Basal Cell Carcinoma Follow up Diagnosis: Actinic Keratosis Location: right preauricular area Last visit: 11/04/2024 Symptoms: red, scaly Procedure performed: Shave biopsy Date of procedure: 11/04/2024 Established patient All pertinent medical history, medications, and allergies were reviewed. General Exam: alert, oriented to person, place, and time, normal affect, well appearing Unaccompanied A focused exam completed based on patient reported problems, see below: Skin Exam 1. BASAL CELL CARCINOMA OF SKIN OF SCALP AND NECK Right Parietal Scalp [place] macule at biopsy site, 1.2 x 1.2 cm Mohs surgery Consent obtained: written (The rationale for Mohs as well as the risks, benefits, and alternatives. The risks of infection, scarring, bleeding, prolonged wound healing, incomplete removal, allergy to anesthesia or meds, nerve injury, and recurrence were addressed.) [facility] Protocol: Procedure explained and questions answered to [...] sodium bicarbonate Procedure Details: Biopsy accession number: [id number] Biopsy lab: [facility] Frozen section biopsy performed: Yes Specimen debulked: No Pre-Op diagnosis: basal cell carcinoma BCC subtype: nodular MohsAIQ Surgical site (if tumor spans multiple areas, please select predominant area): scalp Surgery side: right Surgical site (from skin exam): Right Parietal Scalp Pre-operative length (cm): 1.2 Pre-operative width (cm): 1.2 Indications for Mohs surgery: anatomic location where tissue conservation is critical, ill-defined borders and immunocompromised Previously treated? No Mohs Appropriate Use Criteria Score: 9 Details of micrographic surgery: Mohs accession number: [id number] Micrographic Surgery Details: Post-operative length (cm): 1.7 Post-operative width (cm): 1.5 Number of Mohs stages: 2 Post surgery depth of defect: dermis Stage 1 Comments: The area was prepped with Iodine, draped in a sterile fashion, and infiltrated [...] tissue sections, stained, and evaluated by Dr. Rodriges for interpretation of deep and peripheral margins. The Mohs map was marked accordingly. Amount of lidocaine used: 3.0 cc Estimated blood loss: <1.0 cc Defect size: 1.3 x 1.2 cm Number of blocks per stage: 1 Number of positive blocks: 1 Tumor features identified on Mohs section: basal carcinoma Depth of tumor invasion after stage: dermis Stage 2 Comments: The patient returned to the procedure room, the dressing was remove, the tumor area was re-prepped and draped, and anesthesia was assessed and augmented as necessary. A layer of tissue around the positive margin(s) was removed, and the tissue was oriented, mapped, and processed in an identical fashion as for Stage 1. Hemostasis was achieved and dressing placed as in Stage 1. The patient was escorted to the waiting area. As with Stage 1, Mohs sections were prepared with serial tissue sections, stained, and evaluated by Dr. Centeno for interpretation of deep and peripheral margins. The Mohs map was updated. Assistants: Brooklynn Zavala MA Amount of lidocaine used: 3.0 cc Estimated blood loss: 1.0 cc Defect size: 1.7 x 1.5 cm Number of blocks: 1 Number of positive blocks: 0. Tumor free margins were obtained and the Mohs procedure was considered complete. Tumor features identified on Mohs section: no tumor identified Depth of tumor invasion after stage: subcutaneous fat Patient tolerance of procedure: tolerated well, no immediate complications Reconstruction: Was the defect reconstructed? Yes Was reconstruction performed by the same Mohs surgeon? Yes Setting of reconstruction: outpatient office When was reconstruction performed? same day Type of reconstruction: linear Linear reconstruction: intermediate Antibiotics: Were antibiotics given on the day of surgery? Yes When were antibiotics given? post-operative Skin repair Complexity: Intermediate Final length (cm): 3.4 Timeout: patient name, date of , surgical site, and procedure verified Procedure prep: Patient was prepped and draped in usual sterile fashion Prep type: Chlorhexidine Anesthesia: the lesion was anesthetized in a standard fashion Local anesthetic: 3.0 cc. Reason for type of repair: reduce tension to allow closure, allow closure of the large defect and preserve normal anatomy Undermining: edges undermined Undermining comment: The surrounding tissue was undermined until the skin edges could be approximated without undue tension. Any tissue redundancies were removed. Subcutaneous layers (deep stitches): Suture size: 3-0 Suture type comment: Biosyn Stitches: Buried horizontal mattress (Closure was performed in a layered fashion with subcutaneous tissue closed first using tension-bearing absorbable sutures to the level of the superficial fascia.) Fine/surface layer approximation (top stitches): Suture size: 4-0 Suture type: Prolene (polypropylene) Stitches: simple running Stitches comment: Epicuticular skin sutures were then placed with minimal tension. Suture removal (days): 14 Hemostasis achieved with: suture and electrodesiccation Outcome: patient tolerated procedure well with no complications Post-procedure details: sterile dressing applied and wound care instructions given Post-procedure details comment: It was emphasized to the patient to contact the office for any signs of infection, uncontrollable bleeding, or complications. Dressing type: bandage and pressure dressing Mohs Post Operative Type of repair: Intermediate linear closure Wound Care: A pressure dressing was placed on the surgical wound. Post-operative instructions were given in writing and were reviewed with the patient. A follow-up appointment was made, and instructions were given to follow-up sooner if necessary. Related Medications mupirocin (Bactroban) 2 % ointment Apply to surgical incision on the scalp once daily with wound care x 10 days 2. ACTINIC KERATOSIS (2) Right Chest, Right Preauricular Area Erythematous scaly papules Patient was counseled regarding [...] limited to risks of scarring, darker or seeing eye dog trainer pigmentary changes, recurrence, incomplete removal and infection. Method: Liquid nitrogen was used to treat the lesion(s) with two 5-10 second freeze-thaw cycles. Number of lesions treated: 2 Post-procedure instructions: Instructions were given orally and in writing. The office will be contacted if the lesion fails to resolve despite treatment, or if a side effect develops such as abnormal crusting, scabbing, redness or tenderness Cryotherapy, skin lesion - Right Chest, Right Preauricular Area 3. NEOPLASM OF UNCERTAIN BEHAVIOR Right Parietal Scalp Hyperkeratotic papule Plan to biopsy in 2 weeks at follow up. Next visit: 2 weeks, follow up and biopsy documented in this encounter [facility] 12-04-2024 Telephone encounter Note Refills sent. [facility] 12-04-2024 Miscellaneous Notes Refills sent. documented in this encounter [facility] 12-03-2024 History of Present illness Narrative Associated Problem(s): Gastroesophageal reflux disease The nitroglycerin may be easing some esophageal spasm when he takes it. Does not seem to be cardiac issues. Dr Santiago is comfortable with his use of NTG. Subjective ?Quick Links Last Note in Specialty Snapshot Edit RFV/CC Edit Screenings Current [facility] Patient ID: Vishal Duke is a 63 [...] Would rather not change cardiac medications yet [facility] he has been doing so well. Will [...] nitroglycerin as needed. documented in this encounter [facility] 11-04-2024 History of Present illness Narrative Images from the original note were not included. Skin Check Location: Patient requests a skin examination from the waist up Dermatologic history: history of Actinic Keratosis, history of Basal Cell Carcinoma, history of Squamous Cell Carcinoma (history of kidney transplant) Last visit: 6 months ago- last skin exam Last visit: 06/14/24 Mohs to left nondenominational SCC and 06/19/24 for ED&C BCC on [...] Left Eyebrow, Left Forearm - Anterior, Left Mormonism, Mid Parietal Scalp (3), Mid Tip of [...] limited to risks of scarring, darker or seeing eye dog trainer pigmentary changes, recurrence, incomplete removal and infection. [...] Left Eyebrow, Left Forearm - Anterior, Left Mormonism, Mid Parietal Scalp (3), Mid Tip of Nose, Right Buccal Cheek 5. NEOPLASM OF UNSPECIFIED BEHAVIOR OF BONE, SOFT TISSUE, AND SKIN (4) Right Parietal Scalp [place] pearly papule Lesion biopsy Type of biopsy: [...] 1.2 x 1.0 cm Right Preauricular Area [place] scaly plaque Lesion biopsy Type of biopsy: [...] Right Lower Back (2), Right Preauricular Area [place] and brown stuck on verrucous scaly papule [...] limited to risks of scarring, darker or seeing eye dog trainer pigmentary changes, recurrence, incomplete removal and infection. [...] Visit: 6 months documented in this encounter [facility] 10-17-2024 Note Transplant Clinic Patient : Vishal Duke; 63 y.o. Reason for Visit: History of renal transplant. SUBJECTIVE: History Of Present Illness: Patient is a 63-year-old male with a history of end-stage renal disease (related to PKD, status post bilateral akut[place] nephrectomies and 01/2023), who is status post DDRT on 08/15/[address] Marquez. CMV +/-. Notable history of OK/cardiac arrest/implanted ICD in 2020 Patient returns regarding [...] on aug 16 2017 , uncomplicated. Hx; OK and had Pacer/Defib Placed. Pt following up [facility] cardiology Pt inpatient for ruptured renal [...] +/-. Patient has recent history of an OK and had Pacer/Defib Placed. Patient here for follow up Nephrectomy Patient states he is feeling good with a 21 pound weight loss since bilat akut[place] kidney's removed. He states that he currently [...] discussed -Incision He (more content not included)... [facility] 10-17-[address] [facility] Cardiology Clinic Note Chief Complaint: [...] before he had a V-fib arrest at [facility]. He has not felt his ICD shocked [...] (Nitrostat) 0.4 mg (more content not included)... [facility] 10-03-2024 Telephone encounter Note [facility] [place] received rx for test strips and lancets. How many do you want them to dispense and how many refills? They will take a verbal [phone]. Thank you. [facility] 10-03-2024 Miscellaneous Notes [facility] [place] received rx for test strips and lancets. How many do you want them to dispense and how many refills? They will take a verbal [phone]. Thank you. documented in this encounter [facility] 10-03-2024 History of Present illness Narrative Associated [...] Yes Vision Screening: Yes, patient sees regular motor vehicle field representative/developing machine tender Hearing Screening: Yes, concerned about hearing loss [...] He recently returned from a vacation in [place], during which he experienced difficulty breathing in [...] healthy, he has discontinued visits to the stainless steel finisher. He finds some relief from inhalers and monitors his oxygen levels at home, which typically range from 95 to 96 percent. He also reports occasional leg swelling, particularly in hot weather, but did not experience this during his recent trip to [place]. He has been experiencing frequent dizziness, which he attributes to either low blood pressure or high blood sugar levels. His aircraft engine mechanic overhaul recently conducted an EKG, which yielded normal [...] is currently on Jardiance, prescribed by his aircraft engine mechanic overhaul, and undergoes monthly lab tests ordered by his portable machine cutter due to a kidney transplant. His A1c [...] independence. Living will and durable power of assistant city attorney reviewed. Updated patient problem list and [...] at present. Essential hypertension End-stage renal disease ([facility]) S/P Transplant. PKD (polycystic kidney disease) Stage 3a chronic kidney disease ([facility]) History of kidney transplant ([facility]) Follows with transplant team. Dizziness Being evaluated by cardiology. Type 2 diabetes mellitus with diabetic cataract ([facility]) Type 2 diabetes mellitus with diabetic polyneuropathy ([facility]) Orders: Blood Glucose Monitoring Suppl (Blood Glucose Monitor System) w/Device kit; Use daily or as directed for monitoring of diabetes. Also dispense test strips and lancets of insurance choice. Cardiomyopathy, unspecified ([facility]) Assessment & Plan 1. Dyspnea. - Reports [...] diabetes. - Currently on Jardiance, prescribed by aircraft engine mechanic overhaul, which also helps manage blood sugar. - No additional medications will be added at this time. - Advised to inform motor vehicle field representative about elevated blood sugar levels during next [...] during this visit. documented in this encounter [facility] 09-18-[address] [facility] Cardiology Clinic Note Chief Complaint: [...] before he had a V-fib arrest at [facility]. He has not felt his ICD shocked [...] Patient Position: Sit (more content not included)... [facility] 06-19-2024 History of Present illness Narrative [...] other part of trunk Left Upper Back [place] macule at biopsy site Destr of lesion Complexity: simple Destruction method: electrodesiccation and curettage Informed consent: discussed and consent obtained Informed consent comment: The risks of the procedure were discussed, including, but not limited to risks of scarring, darker or seeing eye dog trainer pigmentary changes, recurrence, infection, and incomplete removal [...] lidocaine used: 2.0 cc Previous accession number: [id number] Emphasized to return to clinic for any signs of recurrence prior to next visit. Next Visit: as scheduled documented in this encounter [facility] 06-14-2024 History of Present illness Narrative Images from the original note were not included. Mohs Surgery Location: Left nondenominational Date of biopsy: 05/02/2024 Diagnosis: Squamous Cell Carcinoma All pertinent medical history, medications, and allergies were reviewed. General Exam: alert, oriented to person, place, and time, normal affect, well appearing A focused exam completed based on patient reported problems, see below: 1. Squamous cell carcinoma of skin of left nondenominational Left Mormonism Erythematous macule at the biopsy site. Mohs surgery Consent obtained: written (The rationale for Mohs as well as the risks, benefits, and alternatives. The risks of infection, scarring, bleeding, prolonged wound healing, incomplete removal, allergy to anesthesia or meds, nerve injury, and recurrence were addressed.) [facility] Protocol: Procedure explained and questions answered to [...] sodium bicarbonate Procedure Details: Biopsy accession number: [id number] Biopsy lab: [facility] Date of biopsy: 05/02/2024 Frozen section biopsy performed: Yes Specimen debulked: No Pre-Op diagnosis: squamous cell carcinoma MohsAIQ Surgical site (if tumor spans multiple areas, please select predominant area): nondenominational Surgery side: left Surgical site (from skin exam): Left Mormonism Pre-operative length (cm): 0.8 Pre-operative width (cm): [...] visit: 06/19/2024, ED&C documented in this encounter [facility] 06-11-2024 Note Reviewed over the ph one with Dr. Basurto patients outside labs hemoglobin 16.7 and hematocrit 51, and TAC level 8.3. Current IS tacrolimus IR 0.5 mg BID. New orders for phlebotomy, remove 500 and give 500 ml NS IV. Will watch TAC level for now, no dose changes. Updated patient to the above, verbalized understanding. Will come to [facility] to have this done, aware [facility] will call to schedule. [facility] 05-02-2024 History of Present illness Narrative [...] Actinic keratosis (4) Left Nasofacial Sulcus, Left Mormonism, Mid Parietal Scalp (2) Erythematous scaly papules [...] limited to risks of scarring, darker or seeing eye dog trainer pigmentary changes, recurrence, incomplete removal and infection. [...] skin lesion - Left Nasofacial Sulcus, Left Mormonism, Mid Parietal Scalp (2) 3. Lentigines Scattered garcia macules in sun-exposed areas. The patient was informed that lentigines are benign pigmented lesions that occur on sun-exposed and sun-damaged skin. No treatment is necessary. Recommended regular use of broad spectrum sunscreen SPF 30 or higher 4. Neoplasm of unspecified behavior of bone, soft tissue, and skin (3) Left Mormonism Hyperkeratotic papule Lesion biopsy Type of biopsy: [...] 0.7 x 0.7 cm Left Upper Back [place] scaly plaque Lesion biopsy Type of biopsy: [...] (squamous cell carcinoma) of skin (2) Left Mormonism, Mid Parietal Scalp No evidence of recurrence [...] Visit: 6 months documented in this encounter [facility] 04-11-2024 Note Transplant Clinic Patient : Vishal Duke; 63 y.o. Reason for Visit: History of renal transplant. SUBJECTIVE: History Of Present Illness: Patient is a 63-year-old male with a history of end-stage renal disease (related to PKD, status post bilateral akutan nephrectomies and 01/2023), who is status post DDRT on 08/15/[address] Marquez. CMV +/-. Notable history of OK/cardiac arrest/implanted ICD in 2020 Patient returns regarding [...] on aug 16 2017 , uncomplicated. Hx; OK and had Pacer/Defib Placed. Pt following up [facility] cardiology Pt inpatient for ruptured renal [...] +/-. Patient has recent history of an OK and had Pacer/Defib Placed. Patient here for follow up Nephrectomy Patient states he is feeling good with a 21 pound weight loss since bilat akut[place] kidney's removed. He states that he currently [...] transplant-pertaining questions, con (more content not included)... [facility] 03-21-2024 History of Present illness Narrative [...] getting the shingles vaccine. He saw his aircraft engine mechanic overhaul on Monday. His ejection fraction is up [...] He was advised to consult with his portable machine cutter regarding the administration of the Shingrix vaccine. 2. Cardiac issues. He saw his aircraft engine mechanic overhaul on Monday. His ejection fraction is up [...] Hemoglobin A1c (Completed) documented in this encounter [facility] 03-18-[address] [facility] Cardiology Clinic Note Chief Complaint: [...] RRR. No murmur, (more content not included)... [facility] 03-04-2024 Hospital Discharge instructions Patient Education [...] urethra. Follow these instructions at home: Take yitx-gtr-ozuuauh and prescription medicines only as told by [...] provider. Document Revised: 10/20/2021 Document Reviewed: 10/20/2021 [employer] Patient Education 2023 [employer] Follow Up Care 01/29/2024 08:18:27 With:LEONARDA FRANK, Reji Farrell, URL Address: [facility] [address] , [place] [address]- [phone] When: Unknown Comments:2 yrs w/ PSA [facility] 03-04-2024 Note Patient Education Urology [...] Follow these instructions at home: ??? Take ocgx-wob-rgzhgdn and prescription medicines only as told by [...] do not get (more content not included)... [facility] 02-07-2024 Note The patient had a te stosterone level of 136 on 02/01/2024. His name was added to the low testosterone list for the month of January 2024. [facility] 02-02-2024 Note Per ekta Quintana notified to increase fluids to hydrate well and recheck standing lab order in 2 weeks due to elevated creatinine and Hgb of 17.0. Patient also advised he is currently being treated for shingles and will finish antibiotic on Monday. He states shingle starting to dry up now. He will let us know if anything changes and they aren't healing. [facility] 01-29-2024 History of Present illness Narrative [...] Managed by cardiology documented in this encounter [facility] 01-26-2024 History of Present illness Narrative Images [...] Started after he was working outside, moving [employer] SUBJECTIVE: MEDICATIONS: Current Outpatient Medications Medication Instructions [...] with lifestyle modifications documented in this encounter [facility] 01-11-2024 Evaluation + Plan note Extrac [...] Date:01/29/2024 10:30:00 AM Scheduled Provider:Reji BROWER MD Location:[facility] Appointment Type:URO Office Visit [facility] 09-26-2024 Hospital Discharge instructions Patient Education 01/11/2024 [...] reduce GERD symptoms. Medicines. These may include: ?Gfwe-idj-tyjjkbr antacids. ?Medicines that make your stomach empty [...] may include: ?Fatty foods, like fried foods. ?Dent fruits, like oranges or lemon. ?Other foods [...] Do not drink alcohol. General instructions Take vewp-lwh-rgvtkom and prescription medicines only as told by [...] provider. Document Revised: 05/31/2022 Document Reviewed: 05/31/2022 [employer] Patient Education 2023 [employer] 01/11/2024 10:20:44 Endoscopy, Care After Procedure [facility]) Endoscopy Care After Procedure Please read the instructions outlined below and refer to this sheet in the next few weeks. These discharge instructions provide you with general information on caring for yourself [facility] Your doctor may also give you specific [...] blood. Document Released: 11/15/2004 Document Re-Released: 09/25/2006 [facility] Patient Information [employer]. 01/11/2024 10:20:35 Colon Polyps Colon Polyps Colon [...] hard liquor (44 mL). General instructions Take zeiq-zyl-irutjji and prescription medicines only as told by [...] provider. Document Revised: 07/22/2020 Document Reviewed: 07/22/2020 [employer] Patient Education 2023 [employer] 01/11/2024 10:20:34 Colonoscopy, Care After Surgery [facility] ([facility]) Colonoscopy Care After Surgery Please read the instructions outlined below and refer to this sheet in the next few weeks. These discharge instructions provide you with general information on caring for [facility]. Your doctor may also give you specific [...] Care 12/25/2023 10:22:05 With:Gladys FRANK, JIN Saez, [facility] Address: When: Unknown Comments:Call for any problems. Office will call to schedule follow up appointment [facility] 09-26-2024 NoteProgress Note-Physician Patient: VISHAL DUKE Age: 63 years Sex: Male : 1960 Associated Diagnoses: None Author: Ivan Orozco Jr., DO Postoperative Information Postoperative disposition: Postoperative disposition: Home. Optimetrix number: Optimetrix number [id number]. Anesthetic utilized: General. Physical Examination Vital Signs [...] to Ambulatory Surgery Unit, and To home ).[facility]Result Comment: Electronically Signed By: Ivan Orozco Jr., DO.br\Date and Time Signed: 01/11/24 11:27 [id number] NoteEndoscopic Procedure Report - Other Patient: VISHAL DUKE Age: 63 years Sex: Male : 1960 Associated Diagnoses: None Author: Xochilt Graham MD Pre-Procedure Procedure Date 01/11/2024 10:26:00 . Procedure Type: Colonoscopy with removal of tumor(s), polyp(s), or other lesion(s) by cold snare technique. Procedure provider Performed by Xochilt Graham MD. Current history and physical Reviewed. Kidney transplant ([id number]) on 01/01/2018 at 57 Years. Comments: 01/01/2020 12:00 Leia Molina MA Gabbi Pt has three kidneys Placement of stent in cardiac conduit ([id number]). Triple coronary bypass ([id number]). Bilateral vasectomy ([id number]). Colonoscopy ([id number]).. Past Medical History No active or resolved past medical history items have been selected or recorded.. Family History Alzheimer's disease Mother . Procedure History Kidney transplant ([id number]) on 01/01/2018 at 57 Years. Comments: 01/01/2020 12:00 Leia Molina MA [facility] Pt has three kidneys Placement of stent in cardiac conduit ([id number]). Triple coronary bypass ([id number]). Bilateral vasectomy ([id number]). Colonoscopy ([id number]).. Colorectal neoplasm risk assessment High risk Previous [...] bedtime), # 90 tab(s), Refills(s) 0, Pharmacy: [facility], 177.8, cm, 12/25/23 9:23:00 EDT, Height/Length [...] Normal examined terminal ileum Images Procedure images: Rec_hd_video__14__[id number].jpg Rec_hd_video__[id number].jpg Rec_hd_video__[id number].jpg Rec_hd_video__[id number].jpg Rec_hd_video__[id number].jpg Rec_hd_video__[id number].jpg Rec1_hd_video_2023__T09__[id number].jpg Rec1_hd_video_2023__T09__[id number].jpg Rec1_hd_video__T09_05_36_[id number].jpg (Inserted Image. Unable to dis (more content not included)...[facility] CenterComment on above:Result Comment: Electronically Signed By: Gladys FRANK, Xochilt Butler\.br\Date and Time Signed: 01/11/24 10:28 EDTOther Comment: Missing Attachment - attachment storage system not supported [id number] Can be viewed in source systemMissing Attachment - attachment storage system not supported [id number] Can be viewed insource systemMissing Attachment - attachment storage system not supported [id number] Can be viewed in source systemMisslawrence general hospital Attachment - attachment storage system not supported [id number] Can be viewed in so ce systemMissing Attachment - attachment storage system not supported [id number] Can be viewed in source systemMissing Attachment - attachment storage system not supported [id number] Can be viewed in source systemMisslawrence general hospital Attachment - attachment storage system not supported [id number] Can be viewed in source systemMissing Attachment - attachment storage system not supported [id number] Can be viewed in source systemMissing Attachment - attachment storage system not supported [id number] Can be viewed in sourcesystemMissing Attachment - attachment storage system not supported [id number] Can be viewed in source systemMisslawrence general hospital Attachment - attachment storage system not supported [id number] Can be viewed in source sy stemIdsslawrence general hospital Attachment - attachment storage system not supported [id number] Can be viewed in source systemMissing Attachment - attachment storage system not supported [id number] Can be viewed in source [phone] NotePatient Education - Text Endoscopy Care After [...] Document Re-Released: 09/25/2006 ExitCare? Patient Information ?2009 [employer]. Colonoscopy Care After Surgery Please read the instructions outlined below and refer to this sheet in the next few weeks. These discharge instructions provide you with general information on [facility] Your doctor may also give you specific [...] weakness can develop ove (more content not included)...[facility]09[facility] NoteEndoscopic Procedure Report - Other [...] Otherwise normal examined duodenum Images Procedure images: Rec_hd_video_08_45_16_[id number].jpg Rec_hd_video_08_45_23_273.jpg Rec_hd_video_T08_45_03_184.jpg Rec_hd_video_08_44_52_949.jpg Rec_hd_video_T08_43_34_038.jpg Rec_hd_video_T08_43_22_197.jpg Rec_hd_video_T08_43_03_991.jpg Rec1_hd_video__T08_42_47_702.jpg Rec1_hd_video__T08_41_40_816.jpg Rec1_hd_video__T08_41_35_166.jpg Rec1_hd_video__T08_41_25_447.jpg . Post-Procedure Complications: [...] follow in GI clinic in 1-2 after dischargeWright-Patterson Medical CenterComment on above:Result Comment: Electronically Signed By: Gladys FRANK, Xochilt Butler\.br\Date and Time Signed: 01/11/24 09:38 EDTOther Comment: Missing Attachment - attachment storage system not supported [id number] Can be viewed in source system Missing Attachment - attachment storage system not supported [id number] Can be viewed in source systemMissing Attachment - attachment storage system not supported 5539346 Can be viewed in source systemMissing Attachment - attachment storage system not supported [id number] Can be viewed in source systemMissing Attachment - attachment storage system not supported 1785265 Can be viewed in source systemMissing Attachment - attachment storage system not supported 8226632 Can be viewed in source systemMissing Attachment - attachment storage system not supported [id number] Can be viewed in source systemMissing Attachment - attachment storage system not supported 8587043 Can be viewed in source system Missing Attachment - attachment storage system not supported 3538208 Can be viewed in source systemMissing Attachment - attachment storage system not supported [id number] Can be viewed in source systemMissing Attachment - attachment storage system not supported [id number] Can be viewed in source [id number] NoteHistory and Physical Patient: VISHAL DUKE Age: [...] bedtime), # 90 tab(s), Refills(s) 0, Pharmacy: [facility], 177.8, cm, 12/25/23 9:23:00 EDT, Height/Length [...] BPH with urinary obstruction / SNOMED CT 7036007709 / Confirmed Hypertension / SNOMED CT 2518694669 / Confirmed Renal failure / SNOMED CT 05301617 / Confirmed polycystic kidney disease / SNOMED CT 307295774 / Confirmed Hyperlipidemia / SNOMED CT 69746250 / Confirmed Microhematuria / SNOMED CT 874836682 / Confirmed Nocturia / SNOMED CT 406116624 / Confirmed Kidney transplanted / SNOMED CT 8480168850 / Confirmed Myocardial infarct / SNOMED CT 88958553 / Confirmed Screen for colon cancer / SNOMED CT 852787168 / Confirmed History of colon polyps / SNOMED CT 5918620394 / Confirmed Histories Past Medical History: No active or resolved past medical history items have been selected or recorded. Family History: Mother Alzheimer's disease Procedure history: Kidney transplant ([id number]) on 01/01/2018 at 57 Years. Comments: 01/01/2020 12:00 EDT - Ronald Anderson MAjean Seo Pt has three kidneys Placement of stent in cardiac conduit ([id number]). Triple coronary bypass (514628832). Bilateral vasectomy (167839392). Colonoscopy (662137791). Social History Social & Psychosocial Habits Alcohol [...] of hyperplastic polyps, GERD Plan: -EGD and ColonoscopyWright-Patterson Medical CenterComment on above:Result Comment: Electronically Signed By: Gladys FRANK, Xochilt Butler\.adam\Date and Time Signed: 01/11/24 09:25 [id number] NoteProgress Note-Physician Patient: VISHAL DUKE Age: 63 [...] bedtime), # 90 tab(s), Refills(s) 0, Pharmacy: [facility], 177.8, cm, 12/25/23 9:23:00 EDT, Height/Length [...] BPH with urinary obstruction / SNOMED CT 2065349170 / Confirmed History of colon polyps / SNOMED CT 2294443373 / Confirmed Hyperlipidemia / SNOMED CT 49473432 / Confirmed Hypertension / SNOMED CT 7047124374 / Confirmed Kidney transplanted / SNOMED CT 3296399296 / Confirmed Microhematuria / SNOMED CT 719114125 / Confirmed Myocardial infarct / SNOMED CT 91209859 / Confirmed Nocturia / SNOMED CT 750682812 / Confirmed polycystic kidney disease / SNOMED CT 854649007 / Confirmed Renal failure / SNOMED CT 30741481 / Confirmed Screen for colon cancer / SNOMED CT 402350292 / Confirmed Histories Past Medical History: No active or resolved past medical history items have been selected or recorded. Procedure history: Kidney transplant ([id number]) on 01/01/2018 at 57 Years. Comments: 01/01/2020 12:00 EDT - Leia Anderson MA Pt has three kidneys Placement of (more content not included)...[facility] CenterComment on above:Result Comment: Electronically Signed By: Ivan Orozco Jr., DO\.br\Date and Time Signed: 01/11/24 08:41 [id number] Telephone encounter Note* Telephone Encounter - Rosa M Gonzales MD - 12/08/2023 12:59 PM EDT Refills sent. [facility] [id number] Miscellaneous Notes* Telephone Encounter - Rosa M Gonzales MD - 12/08/2023 12:59 PM EDT Refills sent. documented in this encounterSoutheast [facility] [id number] Hospital Discharge instructions Follow Up Care 06/06/2023 12:55:17 With:LEONARDA FRANK, Reji Farrell, URL Address: [facility] [address], [place] [phone] When: Unknown [facility] 02-13-2023 NoteCARDIAC STRESS TEST Requesting Physician: [...] interpreted, and relayed in a separate dictation.[facility] [id number] Hospital Discharge instructions Patient Education 01/17/2022 12:05:57 [...] urethra. Follow these instructions at home: Take fsmr-anf-unxqnns and prescription medicines only as told by [...] 04/03/2006 Document Revised: 02/26/2019 Document Reviewed: 05/08/2017 [employer] Patient Education Eventap Follow Up Care 11/09/2021 10:07:55 With:LEOANRDA FRANK, Reji Farrell, URL Address: [facility] [address], [place] [address]- [phone] When:01/18/2024 Comments:PSA [facility] 10-03-2022 Evaluation + Plan note Diagnostic Tests Pending * PSA Total 01/17/22 [facility] 02-15-2022 NotePROCEDURE: [facility] VCT 64, 5.0 mm slice axial images [...] signed by Anjum Remy on 06/01/2021 1051[facility]08-21-[facility] NoteMR#: [id number] I [facility] Pt. Name: Vishal Duke Admitted: 12/02/2020 [...] Herrera MD Date Trans: 12/05/2020 05:37 A/patrizia DN_JN:[id number] cc: Rosa M Gonzales M.D. [address] [place] [address]FvkSouthern [facility] Center08-18-2021 NoteMR#: [id number] [facility] Pt. Name: Vishal Duke Date of Service: 12/02/2020 Room #: 4CD [id number] Birthdate: 1960 Referring Physician: CONSULTATION Reason for [...] disease, gout, GERD, hypertension, CAD status post OK and 2 stents, HLD, Covid pneumonia Past surgical history: AV fistula left arm, cardiac catheterization 10/29/2020, renal transplant 2018, cardiac catheterization 2016 with 2 stent placements, [...] Watkins, DO Date Trans: 12/02/2020 05:52 P/ DN_JN:[id number] cc: Rosa M Gonzales M.D. [facility]9 [facility] [address]PhhSouthern [facility] Medical Center05-06-2021 NoteMR#: [id number] I [facility] Pt. Name: Vishal Duke Admitted: 08/02/2020 [...] x2 in June. The patient's son and yhmuivye-pb-leh were symptomatic just before him. The patient was complaining of fatigue and mild body aches. The patient also developed cough and mild shortness of breath. His dyspnea was initially with exertion, but progressed to minimal activity. After he spoke with his portable machine cutter, he decreased his Myfortic dose and received [...] Ferreira M.D. Date Trans: 08/20/2020 05:24 A/patrizia DN_JN:[id number] cc: Rosa M Gonzales M.D. [address] [place] [address]XtlSouthern Ohio Medical CenterEvaluation + Plan note Future Appointments Appointment Date:01/11/2024 09:30:00 AM Scheduled Provider: Location:[facility] Appointment Type:Surgery FT Appointment Date:01/29/2024 10:30:00 AM Scheduled Provider:Reji BROWER MD Location:[facility] Appointment Type:URO Office Visit [facility] Evaluation + Plan note Future Appointments Appointment Date:03/04/2024 01:30:00 PM Scheduled Provider:Reji BROWER MD Location:[facility] Appointment Type:URO Office Visit [facility] evaluation note* Diagnosis Encounter for immunization- Primary Tinea corporis Dermatophytosis of the body Type 2 diabetes mellitus without complications ([facility]/HCC) [facility]* Diagnosis Polycystic kidney disease, autosomal dominant- Primary Congenital polycystic kidney, autosomal dominant Kidney transplant status ([facility]/HCC) Hypokalemia Hypopotassemia Ischemic cardiomyopathy (CMS/HCC) Other specified forms of chronic ischemic heart disease Add Pulmonary fibrosis, unspecified (J84.10) Atherosclerosis of [place] coronary artery of [place] heart with angina pectoris (CMS/HCC) Add Atherosclerosis of aorta (I70.0) Atherosclerosis of aorta Add 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 (CMS/HCC) Essential hypertension (CMS/HCC) Unspecified essential hypertension Status post insertion of drug-eluting stent into left anterior descending (LAD) artery for coronary artery disease Immunosuppression (CMS/HCC) History of kidney transplant (CMS/HCC) Kidney replaced by transplant Wellness examination- Primary Simple chronic bronchitis (CMS/HCC) Simple chronic bronchitis Chronic systolic congestive heart failure (CMS/HCC) Coronary artery disease involving [place] coronary artery of [place] heart with unstable angina pectoris (CMS/HCC) Essential hypertension (CMS/HCC) Unspecified essential hypertension Gastroesophageal reflux disease without esophagitis Esophageal reflux PKD (polycystic kidney disease) Congenital polycystic kidney, unspecified type Immunosuppression (CMS/HCC) History of kidney transplant (CMS/HCC) Kidney replaced by transplant Mixed hyperlipidemia (CMS/HCC) Mixed hyperlipidemia Atherosclerotic heart disease of [place] coronary artery with unspecified angina pectoris (CMS/HCC) Ventricular fibrillation (CMS/HCC) Ventricular fibrillation Left lateral epicondylitis- Primary Simple chronic bronchitis (CMS/HCC) Simple chronic bronchitis Chronic systolic congestive heart failure (CMS/HCC) Coronary artery disease involving [place] coronary artery of [place] heart with unstable angina pectoris (CMS/HCC) Essential [...] Cardiomyopathy, unspecified (CMS/HCC) documented in [facility] encounter [facility]* Diagnosis Polycystic kidney disease, autosomal dominant- Primary Congenital polycystic kidney, autosomal dominant Kidney transplant status (CMS/HCC) Hypokalemia Hypopotassemia Ischemic cardiomyopathy (CMS/HCC) Other specified forms of chronic ischemic heart disease Add Pulmonary fibrosis, unspecified (J84.10) Atherosclerosis of [place] coronary artery of [place] heart with angina pectoris (CMS/HCC) Add Atherosclerosis of aorta (I70.0) Atherosclerosis of aorta Add 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 (CMS/HCC) Essential hypertension (CMS/HCC) Unspecified essential hypertension Status post insertion of drug-eluting stent into left anterior descending (LAD) artery for coronary artery disease Immunosuppression (CMS/HCC) History of kidney transplant (CMS/HCC) Kidney replaced by transplant Wellness examination- Primary Simple chronic bronchitis (CMS/HCC) Simple chronic bronchitis Chronic systolic congestive heart failure (CMS/HCC) Coronary artery disease involving [place] coronary artery of [place] heart with unstable angina pectoris (CMS/HCC) Essential hypertension (CMS/HCC) Unspecified essential hypertension Gastroesophageal reflux disease without esophagitis Esophageal reflux PKD (polycystic kidney disease) Congenital polycystic kidney, unspecified type Immunosuppression ([facility]/HCC) History of kidney transplant (CMS/HCC) Kidney replaced by transplant Mixed hyperlipidemia (CMS/HCC) Mixed hyperlipidemia Atherosclerotic heart disease of [place] coronary artery with unspecified angina pectoris (CMS/HCC) Ventricular fibrillation (CMS/HCC) Ventricular fibrillation Left lateral epicondylitis- Primary Simple chronic bronchitis (CMS/HCC) Simple chronic bronchitis Chronic systolic congestive heart failure (CMS/HCC) Coronary artery disease involving [place] coronary artery of [place] heart with unstable angina pectoris (CMS/HCC) Essential hypertension (CMS/HCC) Unspecified essential hypertension Status post insertion of drug-eluting stent into left anterior descending (LAD) artery for coronary artery disease Immunosuppression (CMS/HCC) Mixed hyperlipidemia (CMS/[facility]) Mixed hyperlipidemia Herpes zoster without complication- Primary Elevated fasting glucose Impaired fasting glucose documented in this encounter [facility]* Diagnosis History of kidney transplant (/[facility]) Kidney replaced by transplant documented in this encounter [facility]* Diagnosis Polycystic kidney disease, autosomal dominant- Primary Congenital polycystic kidney, autosomal dominant Kidney transplant status ([facility]) Hypokalemia Hypopotassemia Ischemic cardiomyopathy ([facility]) Other specified forms of chronic ischemic heart disease Add Pulmonary fibrosis, unspecified (J84.10) Atherosclerosis of [place] coronary artery of [place] heart with angina pectoris (CMS/HCC) Add Atherosclerosis of aorta (I70.0) Atherosclerosis of aorta Add 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 (CMS/HCC) Essential hypertension ([facility]) Unspecified essential hypertension Status post insertion of drug-eluting stent into left anterior descending (LAD) artery for coronary artery disease Immunosuppression ([facility]/HCC) History of kidney transplant (/HCC) Kidney replaced by transplant Wellness examination- Primary Simple chronic bronchitis (CMS/HCC) Simple chronic bronchitis Chronic systolic congestive heart failure ([facility]/HCC) Coronary artery disease involving [place] coronary artery of [place] heart with unstable angina pectoris (CMS/HCC) Essential hypertension ([facility]) Unspecified essential hypertension Gastroesophageal reflux disease without esophagitis Esophageal reflux PKD (polycystic kidney disease) Congenital polycystic kidney, unspecified type Immunosuppression ([facility]) History of kidney transplant (/[facility]) Kidney replaced by transplant Mixed hyperlipidemia (CMS/HCC) Mixed hyperlipidemia Atherosclerotic heart disease of [place] coronary artery with unspecified angina pectoris (CMS/HCC) Ventricular fibrillation (CMS/HCC) Ventricular fibrillation Left lateral epicondylitis- Primary Simple chronic bronchitis (CMS/HCC) Simple chronic bronchitis Chronic systolic congestive heart failure (CMS/HCC) Coronary artery disease involving [place] coronary artery of [place] heart with unstable angina pectoris (CMS/HCC) Essential [...] Add Pulmonary fibrosis, unspecified (J84.10) Atherosclerosis of [place] coronary artery of [place] heart with angina pectoris (CMS/HCC) Add Atherosclerosis of aorta (I70.0) Atherosclerosis of aorta Add 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 (CMS/HCC) Essential hypertension (CMS/HCC) Unspecified essential hypertension Status post insertion of drug-eluting stent into left anterior descending (LAD) artery for coronary artery disease Immunosuppression (CMS/HCC) History of kidney transplant (CMS/HCC) Kidney replaced by transplant Wellness examination- Primary Simple chronic bronchitis (CMS/HCC) Simple chronic bronchitis Chronic systolic congestive heart failure (CMS/HCC) Coronary artery disease involving [place] coronary artery of [place] heart with unstable angina pectoris (CMS/HCC) Essential hypertension (CMS/HCC) Unspecified essential hypertension Gastroesophageal reflux disease without esophagitis Esophageal reflux PKD (polycystic kidney disease) Congenital polycystic kidney, unspecified type Immunosuppression (CMS/HCC) History of kidney transplant (CMS/HCC) Kidney replaced by transplant Mixed hyperlipidemia (CMS/HCC) Mixed hyperlipidemia Atherosclerotic heart disease of [place] coronary artery with unspecified angina pectoris (CMS/HCC) Ventricular fibrillation (CMS/HCC) Ventricular fibrillation Left lateral epicondylitis- Primary Simple chronic bronchitis (CMS/HCC) Simple chronic bronchitis Chronic systolic congestive heart failure (CMS/HCC) Coronary artery disease involving [place] coronary artery of [place] heart with unstable angina pectoris (CMS/HCC) Essential hypertension (CMS/HCC) Unspecified essential hypertension Status post insertion of drug-eluting stent into left anterior descending (LAD) artery for coronary artery disease Immunosuppression (CMS/HCC) Mixed hyperlipidemia (CMS/HCC) Mixed hyperlipidemia Squamous cell carcinoma of skin of left nondenominational- Primary documented [facility] encounter [facility]* Diagnosis Polycystic kidney disease, autosomal dominant- Primary Congenital polycystic kidney, autosomal dominant Kidney transplant status (CMS/HCC) Hypokalemia Hypopotassemia Ischemic cardiomyopathy (CMS/HCC) Other specified forms of chronic ischemic heart disease Add Pulmonary fibrosis, unspecified (J84.10) Atherosclerosis of [place] coronary artery of [place] heart with angina pectoris (CMS/HCC) Add Atherosclerosis of aorta (I70.0) Atherosclerosis of aorta Add 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 (CMS/HCC) Essential hypertension (CMS/HCC) Unspecified essential hypertension Status post insertion of drug-eluting stent into left anterior descending (LAD) artery for coronary artery disease Immunosuppression (CMS/HCC) History of kidney transplant (CMS/HCC) Kidney replaced by transplant Wellness examination- Primary Simple chronic bronchitis (CMS/HCC) Simple chronic bronchitis Chronic systolic congestive heart failure (CMS/HCC) Coronary artery disease involving [place] coronary artery of [place] heart with unstable angina pectoris (CMS/HCC) Essential hypertension (CMS/HCC) Unspecified essential hypertension Gastroesophageal reflux disease without esophagitis Esophageal reflux PKD (polycystic kidney disease) Congenital polycystic kidney, unspecified type Immunosuppression (CMS/HCC) History of kidney transplant (CMS/HCC) Kidney replaced by transplant Mixed hyperlipidemia (CMS/HCC) Mixed hyperlipidemia Atherosclerotic heart disease of [place] coronary artery with unspecified angina pectoris (CMS/HCC) Ventricular fibrillation (CMS/HCC) Ventricular fibrillation Left lateral epicondylitis- Primary Simple chronic bronchitis (CMS/HCC) Simple chronic bronchitis Chronic systolic congestive heart failure (CMS/HCC) Coronary artery disease involving [place] coronary artery of [place] heart with unstable angina pectoris (CMS/HCC) Essential hypertension (CMS/HCC) Unspecified essential hypertension Status post insertion of drug-eluting stent into left anterior descending (LAD) artery for coronary artery disease Immunosuppression (CMS/HCC) Mixed hyperlipidemia (CMS/HCC) Mixed hyperlipidemia Basal cell carcinoma of skin of other part of trunk- Primary documented in this encounter 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 (HCC) Essential hypertension Unspecified essential hypertension Status post insertion of drug-eluting stent into left anterior descending (LAD) artery for coronary artery disease Immunosuppression (HCC) History of kidney transplant (HCC) Kidney replaced by transplant Wellness examination- Primary Simple chronic bronchitis (HCC) Simple chronic bronchitis Chronic systolic congestive heart failure (HCC) Coronary artery disease involving [place] coronary artery of [place] heart with unstable angina pectoris (HCC) Essential hypertension Unspecified essential hypertension Gastroesophageal reflux disease without esophagitis Esophageal reflux PKD (polycystic kidney disease) Congenital polycystic kidney, unspecified type Immunosuppression (HCC) History of kidney transplant (HCC) Kidney replaced by transplant Mixed hyperlipidemia Mixed hyperlipidemia Atherosclerotic heart disease of [place] coronary artery with unspecified angina pectoris Ventricular fibrillation (HCC) Ventricular fibrillation Left lateral epicondylitis- Primary Simple chronic bronchitis (HCC) Simple chronic bronchitis Chronic systolic congestive heart failure (HCC) Coronary artery disease involving [place] coronary artery of [place] heart with unstable angina pectoris (HCC) Essential [...] Cardiomyopathy, unspecified (HCC) documented in this encounter [facility]* Diagnosis Polycystic kidney disease, autosomal dominant- Primary Congenital polycystic kidney, autosomal dominant Kidney transplant status (HCC) Hypokalemia Hypopotassemia Ischemic cardiomyopathy Other specified forms of chronic ischemic heart disease Add Pulmonary fibrosis, unspecified (J84.10) Atherosclerosis of [place] coronary artery of [place] heart with angina pectoris Add Atherosclerosis of aorta (I70.0) Atherosclerosis of aorta Add 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 (HCC) Essential hypertension Unspecified essential hypertension Status post insertion of drug-eluting stent into left anterior descending (LAD) artery for coronary artery disease Immunosuppression (HCC) History of kidney transplant (HCC) Kidney replaced by transplant Wellness examination- Primary Simple chronic bronchitis (HCC) Simple chronic bronchitis Chronic systolic congestive heart failure (HCC) Coronary artery disease involving [place] coronary artery of [place] heart with unstable angina pectoris (HCC) Essential hypertension Unspecified essential hypertension Gastroesophageal reflux disease without esophagitis Esophageal reflux PKD (polycystic kidney disease) Congenital polycystic kidney, unspecified type Immunosuppression (HCC) History of kidney transplant (HCC) Kidney replaced by transplant Mixed hyperlipidemia Mixed hyperlipidemia Atherosclerotic heart disease of [place] coronary artery with unspecified angina pectoris Ventricular fibrillation (HCC) Ventricular fibrillation Left lateral epicondylitis- Primary Simple chronic bronchitis (HCC) Simple chronic bronchitis Chronic systolic congestive heart failure (HCC) Coronary artery disease involving [place] coronary artery of [place] heart with unstable angina pectoris (HCC) Essential [...] unspecified type Stage 3a chronic kidney disease ([facility]-H[facility]) History of kidney transplant (HCC) Kidney replaced [...] Seborrheic keratosis, inflamed documented in this encounter 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 (HCC) Essential hypertension Unspecified essential hypertension Status post insertion of drug-eluting stent into left anterior descending (LAD) artery for coronary artery disease Immunosuppression (HCC) History of kidney transplant (HCC) Kidney replaced by transplant Wellness examination- Primary Simple chronic bronchitis (HCC) Simple chronic bronchitis Chronic systolic congestive heart failure (HCC) Coronary artery disease involving [place] coronary artery of [place] heart with unstable angina pectoris (HCC) Essential hypertension Unspecified essential hypertension Gastroesophageal reflux disease without esophagitis Esophageal reflux PKD (polycystic kidney disease) Congenital polycystic kidney, unspecified type Immunosuppression (HCC) History of kidney transplant (HCC) Kidney replaced by transplant Mixed hyperlipidemia Mixed hyperlipidemia Atherosclerotic heart disease of [place] coronary artery with unspecified angina pectoris Ventricular fibrillation (HCC) Ventricular fibrillation Left lateral epicondylitis- Primary Simple chronic bronchitis (HCC) Simple chronic bronchitis Chronic systolic congestive heart failure (HCC) Coronary artery disease involving [place] coronary artery of [place] heart with unstable angina pectoris (HCC) Essential [...] unspecified type Stage 3a chronic kidney disease ([facility]-HCC) History of kidney transplant (HCC) Kidney replaced by transplant Dizziness Dizziness and giddiness Type 2 diabetes mellitus with diabetic cataract (HCC) Type II or unspecified type diabetes mellitus with ophthalmic manifestations, not stated as uncontrolled Type 2 diabetes mellitus with diabetic polyneuropathy (HCC) Cardiomyopathy, unspecified ([facility]) Dizziness- Primary Dizziness and giddiness Orthostatic hypotension Gastroesophageal reflux disease without esophagitis Esophageal reflux documented in this encounter [facility] HealthcareEvaluation note* Diagnosis Polycystic kidney disease, autosomal dominant- Primary Congenital polycystic kidney, autosomal dominant Kidney transplant status (HCC) Hypokalemia Hypopotassemia Ischemic cardiomyopathy Other specified forms of chronic ischemic heart disease Add Pulmonary fibrosis, unspecified (J84.10) Atherosclerosis of [place] coronary artery of [place] heart with angina pectoris Add Atherosclerosis of aorta (I70.0) Atherosclerosis of aorta Add 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 (HCC) Essential hypertension Unspecified essential hypertension Status post insertion of drug-eluting stent into left anterior descending (LAD) artery for coronary artery disease Immunosuppression (HCC) History of kidney transplant (HCC) Kidney replaced by transplant Wellness examination- Primary Simple chronic bronchitis (HCC) Simple chronic bronchitis Chronic systolic congestive heart failure (HCC) Coronary artery disease involving [place] coronary artery of [place] heart with unstable angina pectoris (HCC) Essential hypertension Unspecified essential hypertension Gastroesophageal reflux disease without esophagitis Esophageal reflux PKD (polycystic kidney disease) Congenital polycystic kidney, unspecified type Immunosuppression (HCC) History of kidney transplant (HCC) Kidney replaced by transplant Mixed hyperlipidemia Mixed hyperlipidemia Atherosclerotic heart disease of [place] coronary artery with unspecified angina pectoris Ventricular fibrillation (HCC) Ventricular fibrillation Left lateral epicondylitis- Primary Simple chronic bronchitis (HCC) Simple chronic bronchitis Chronic systolic congestive heart failure (HCC) Coronary artery disease involving [place] coronary artery of [place] heart with unstable angina pectoris (HCC) Essential [...] unspecified type Stage 3a chronic kidney disease ([facility]HCC) History of kidney transplant (HCC) Kidney replaced [...] replaced by transplant documented in this encounter [facility]Evaluation note* Diagnosis Polycystic kidney disease, autosomal dominant- Primary Congenital polycystic kidney, autosomal dominant Kidney transplant status (HCC) Hypokalemia Hypopotassemia Ischemic cardiomyopathy Other specified forms of chronic ischemic heart disease Add Pulmonary fibrosis, unspecified (J84.10) Atherosclerosis of [place] coronary artery of [place] heart with angina pectoris Add Atherosclerosis of aorta (I70.0) Atherosclerosis of aorta Add 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 (HCC) Essential hypertension Unspecified essential hypertension Status post insertion of drug-eluting stent into left anterior descending (LAD) artery for coronary artery disease Immunosuppression (HCC) History of kidney transplant (HCC) Kidney replaced by transplant Wellness examination- Primary Simple chronic bronchitis (HCC) Simple chronic bronchitis Chronic systolic congestive heart failure (HCC) Coronary artery disease involving [place] coronary artery of [place] heart with unstable angina pectoris (HCC) Essential hypertension Unspecified essential hypertension Gastroesophageal reflux disease without esophagitis Esophageal reflux PKD (polycystic kidney disease) Congenital polycystic kidney, unspecified type Immunosuppression (HCC) History of kidney transplant (HCC) Kidney replaced by transplant Mixed hyperlipidemia Mixed hyperlipidemia Atherosclerotic heart disease of [place] coronary artery with unspecified angina pectoris Ventricular fibrillation (HCC) Ventricular fibrillation Left lateral epicondylitis- Primary Simple chronic bronchitis (HCC) Simple chronic bronchitis Chronic systolic congestive heart failure (HCC) Coronary artery disease involving [place] coronary artery of [place] heart with unstable angina pectoris (HCC) Essential [...] unspecified type Stage 3a chronic kidney disease ([facility]HCC) History of kidney transplant (HCC) Kidney replaced by transplant Dizziness Dizziness and giddiness Type 2 diabetes mellitus with diabetic cataract (HCC) Type II or unspecified type diabetes mellitus with ophthalmic manifestations, not stated as uncontrolled Type 2 diabetes mellitus with diabetic polyneuropathy (HCC) Cardiomyopathy, unspecified ([facility]) Dizziness- Primary Dizziness and giddiness Orthostatic hypotension Gastroesophageal reflux disease without esophagitis Esophageal reflux Basal cell carcinoma of skin of scalp and neck Actinic keratosis Neoplasm of uncertain behavior Neoplasm of uncertain behavior, site unspecified documented in this encounter [facility] HealthcareEvaluation note* Diagnosis Onset Date Resolution Status Admit Date Laceration of left index finger acute January 06, 2025 12:25pm [facility] Work Phone: Evaluation note* Diagnosis Polycystic kidney disease, autosomal dominant- Primary Congenital polycystic kidney, autosomal dominant Kidney transplant status (HCC) Hypokalemia Hypopotassemia Ischemic cardiomyopathy Other specified forms of chronic ischemic heart disease Add Pulmonary fibrosis, unspecified (J84.10) Atherosclerosis of [place] coronary artery of [place] heart with angina pectoris Add Atherosclerosis of aorta (I70.0) Atherosclerosis of aorta Add 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 (HCC) Essential hypertension Unspecified essential hypertension Status post insertion of drug-eluting stent into left anterior descending (LAD) artery for coronary artery disease Immunosuppression (HCC) History of kidney transplant (HCC) Kidney replaced by transplant Wellness examination- Primary Simple chronic bronchitis (HCC) Simple chronic bronchitis Chronic systolic congestive heart failure (HCC) Coronary artery disease involving [place] coronary artery of [place] heart with unstable angina pectoris (HCC) Essential hypertension Unspecified essential hypertension Gastroesophageal reflux disease without esophagitis Esophageal reflux PKD (polycystic kidney disease) Congenital polycystic kidney, unspecified type Immunosuppression (HCC) History of kidney transplant (HCC) Kidney replaced by transplant Mixed hyperlipidemia Atherosclerotic heart disease of [place] coronary artery with unspecified angina pectoris Ventricular fibrillation (HCC) Ventricular fibrillation Left lateral epicondylitis- Primary Simple chronic bronchitis (HCC) Simple chronic bronchitis Chronic systolic congestive heart failure (HCC) Coronary artery disease involving [place] coronary artery of [place] heart with unstable angina pectoris (HCC) Essential hypertension Unspecified essential hypertension Status post insertion of drug-eluting stent into left anterior descending (LAD) artery for coronary artery disease Immunosuppression (HCC) Mixed hyperlipidemia Wellness examination- Primary Simple chronic [...] Gastroesophageal reflux disease without esophagitis Esophageal reflux Actinic keratosis- Primary Seborrheic keratosis, inflamed Encounter for removal of sutures documented in this encounter [facility] [...] he saw his regular [employer] 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 The device was interrogated it in their office and it appears to be functioning appropriately. Because of all the above he is pleased with his care. He'll be following up henceforth with the [place] aircraft engine mechanic overhaul and we advised him were always happy to participate in his care if he needs help. I believe his ICD will be interrogated and managed through their office. We also note thathis renal transplant was not injured as a result of the hospitalization and contrast administrationand/or antibiotic therapy because of this he is pleased. [facility] [address] DO Work Phone: Hospital course Narrative No data available for this section [facility] Hospital Discharge instructions No data available for this section [facility] Progress note No data available for this section [facility] reason for referral (narrative)No reason for referral information available[facility] [place] Work Phone: Chief Complaint VISHAL DUKE is being seen for follow-up of a hospitalization for [facility] D/C 12/11/2020 ICD insert. Family History Unknown Family Member Name Dates Details Family history of cardiac pa cemaker: Mother(V17.49, Z82.49) Status:Active Polycystic kidney disease: S ibling Status:Active Relationship Condition Age at Onset Recorded Date/T lissy son Polycystic kidney disease Unknown sister Polycystic kidney disease Unknown Myocardial infarction Unknown grandchild Polycystic kidney disease Unknown Summary Purpose Advance Directives Advance Directive Response Recorded Date/ Time Advance Directives No December 08, 2020 10:15am Chief Complaint and Reason for Visit Chief Complaint Admit Date Cut finger January 06, 2025 12:25pm Reason for Visit Admit Date Laceration of left index finger Septembe r 2024 12:25pm Additional Source Comments (unrecognized sect ion and content) No Status Records FoundNo Status Records FoundNo Status Records FoundNo Status Records FoundNo Status Records FoundNo Status Records FoundNo Status Records FoundNo Status Records FoundNo Status Records FoundNo Status Records Found INFORMATION SOURCE (unrecogn ized section and content) DATE CREATED AUTHOR 04/25/2021 [facility] DATE CREATED AUTHOR AUTHOR'S ORGANIZ ATION 05/10/2021 [facility] DATE CREATED AUTHOR AUTHOR'S ORGANIZ ATION 07/18/2021 [facility] DATE CREATED AUTHOR AUTHOR'S ORGANIZ ATION 01/17/2022 [facility] dical Specialist DATE CREATED AUTHOR AUTHOR'S ORGANIZ ATION 08/25/2022 [facility] DATE CREATED AUTHOR AUTHOR'S ORGANIZ ATION 01/19/2024 [facility] DATE CREATED AUTHOR AUTHOR'S ORGANIZ ATION 03/06/2024 [facility] DATE CREATED AUTHOR AUTHOR'S ORGANIZ ATION 03/07/2024 [facility] DATE CREATED AUTHOR AUTHOR'S ORGANIZ ATION 01/04/2025 [facility] Specialists EPIC DATE CREATED AUTHOR AUTHOR'S ORGANIZ ATION 01/18/2025 [facility] Care Team (unrecognized sect ion and content) Land Surveying Survey Worker Relationship Specialty Start Date End Date Rosa M Gonzales MD [address] [place] [address] PCP - ACO Reach 09/08/22 Rosa M Gonzales MD [address] [place] [address] PCP - General Family Medicine 10/25/22 Rosa M Platt RN Registered Nurse Family Medicine 03/01/23 [employer] Worker Relationship Specialty Start Date End Date Rosa M Gonzales MD [address] [place] [address] PCP - General Family Medicine 10/25/22 Rosa M Gonzales MD [address] [place] [address] PCP - ACO Reach 08/16/23 Rosa M Platt RN Registered Nurse Family Medicine 03/01/23 Land Surve[employer] Survey Worker Relationship Specialty Start Date End Date Rosa M Gonzales MD [address] [place] [address] PCP - General Family Medicine 10/25/22 Rosa M Gonzales MD [address] [place] [address] PCP - ACO Reach 08/16/23 Rosa M Platt RN Registered Nurse Family Medicine 03/01/23 Land Surveying Survey Worker Relationship Specialty Start Date End Date Rosa M Gonzales MD [address] [place] [address] PCP - General Family Medicine 10/25/22 Rosa M Gonzales MD [address] [place] [address] PCP - ACO Reach 08/16/23 Rosa M Platt RN Registered Nurse Family Medicine 03/01/23 Land Surveying Survey Worker Relationship Specialty Start Date End Date Rosa M Gonzales MD [address] [place] [address] PCP - General Family Medicine 10/25/22 Rosa M Gonzales MD [address] [place] [address] PCP - ACO Reach 08/16/23 Rosa M Platt, TATO Registered Nurse Family Medicine 03/01/23 Land Surveying Survey Worker Relationship Specialty Start Date End Date Rosa M Gonzales MD [address] [place] [address] PCP - General Family Medicine 10/25/22 Rosa M Gonzales MD [address] [place] [address] PCP - ACO Reach 08/16/23 Rosa M Platt RN Registered Nurse Family Medicine 03/01/23 Land Surveying Survey Worker Relationship Specialty Start Date End Date Rosa M Gonzales MD [address] [place] [address] PCP - General Family Medicine 10/25/22 Rosa M Gonzales MD [address] [place] [address] PCP - ACO Reach 08/16/23 Rosa M Platt, TATO Registered Nurse Family Medicine 03/01/23 Land Surveying Survey Worker Relationship Specialty Start Date End Date Rosa M Gonzales MD [address] [place] [address] PCP - General Family Medicine 10/25/22 Rosa M Gonzales MD [address] [place] [address] PCP - ACO Reach 08/16/23 Rosa M Platt, RN Registered Nurse Family Medicine 03/01/23 Land Surveying Survey Worker Relationship Specialty Start Date End Date Rosa M Gonzales MD [address] [place] [address] PCP - General Family Medicine 10/25/22 Rosa M Gonzales MD [address] [place] [address] PCP - ACO Reach 08/16/23 Rosa M Platt, TATO Registered Nurse Family Medicine 03/01/23 Land Surveying Survey Worker Relationship Specialty Start Date End Date Rosa M Gonzales MD [address] [place] [address] PCP - General Family Medicine 10/25/22 Rosa M Gonzales MD [address] [place] [address] PCP - ACO Reach 08/16/23 Rosa M Platt, RN Registered Nurse Family Medicine 03/01/23 Land Surveying Survey Worker Relationship Specialty Start Date End Date Rosa M Gonzales MD [address] [place] [address] PCP - General Family Medicine 10/25/22 Rosa M Gonzales MD [address] [place] [address] PCP - ACO Reach 08/16/23 Rosa M Platt RN Registered Nurse Family Medicine 03/01/23 Land Surveying Survey Worker Relationship Specialty Start Date End Date Rosa M Gonzales MD [address] [place] [address] PCP - General Family Medicine 10/25/22 Rosa M Gonzales MD [address] [place] [address] PCP - ACO Reach 08/16/23 Rosa M Platt RN Registered Nurse Family Medicine 03/01/23 Land Surveying Survey Worker Relationship Specialty Start Date End Date Rosa M Gonzales MD [address] [place] [address] PCP - General Family Medicine 10/25/22 Rosa M Gonzales MD [address] [place] [address] PCP - ACO Reach 05/31/24 Rosa M Platt RN Registered Nurse Family Medicine 03/01/23 Land Surveying Survey Worker Relationship Specialty Start Date End Date Rosa M Gonzales MD [address] [place] [address] PCP - General Family Medicine 10/25/22 Rosa M Gonzales MD [address] [place] [address] PCP - ACO Reach 05/31/24 Rosa M Platt RN Registered Nurse Family Medicine 03/01/23 Land Surveying Survey Worker Relationship Specialty Start Date End Date Rosa M Gonzales MD [address] [place] [address] PCP - General Family Medicine 10/25/22 Rosa M Gonzales MD [address] [place] [address] PCP - ACO Reach 05/31/24 Rosa M Platt, RN Registered Nurse Family Medicine 03/01/23 Land Surveying Survey Worker Relationship Specialty Start Date End Date Rosa M Gonzales MD [address] [place] [address] PCP - General Family Medicine 10/25/22 Rosa M Platt, RN Registered Nurse Family Medicine 03/01/23 Land Surveying Survey Worker Relationship Specialty Start Date End Date Rosa M Gonzales MD [address] [place] [address] PCP - General Family Medicine 10/25/22 Rosa M Platt, RN Registered Nurse Family Medicine 03/01/23 Land Surveying Survey Worker Relationship Specialty Start Date End Date Rosa M Gonzales MD [address] [place] [address] PCP - General Family Medicine 10/25/22 Rosa M Platt, RN [address] [place] [address] Registered Nurse Family Medicine 03/01/23 Land Surveying Survey Worker Relationship Specialty Start Date End Date Rosa M Gonzales MD [address] [place] [address] PCP - General Family Medicine 10/25/22 Rosa M Platt RN [address] [place] [address] Registered Nurse Family Medicine 03/01/23 Land Surveying Survey Worker Relationship Specialty Start Date End Date Rosa M Gonzales MD [address] [place] [address] PCP - General Family Medicine 10/25/22 Rosa M Platt RN [address] [place] [address] Registered Nurse Family Medicine 03/01/23 Land Surveying Survey Worker Relationship Specialty Start Date End Date Rosa M Gonzales MD [address] [place] [address] PCP - General Family Medicine 10/25/22 Rosa M Platt RN [address] [place] [address] Registered Nurse Family Medicine 03/01/23 Land Surveying Survey Worker Relationship Specialty Start Date End Date Rosa M Gonzales MD [address] [place] [address] PCP - General Family Medicine 10/25/22 Rosa M Platt RN [address] [place] [address] Registered Nurse Family Medicine 03/01/23 Land Surveying Survey Worker Relationship Specialty Start Date End Date Rosa M Gonzales MD [address] [place] [address] PCP - General Family Medicine 10/25/22 Rosa M Platt RN [address] [place] [address] Registered Nurse Family Medicine 03/01/23 Land Surveying Survey Worker Relationship Specialty Start Date End Date Rosa M Gonzales MD [address] [place] [address] PCP - General Family Medicine 10/25/22 Rosa M Platt RN [address] [facility] [place] [address] Registered Nurse Family Medicine 03/01/23 Land Surveying Survey Worker Relationship Specialty Start Date End Date Rosa M Gonzales MD [address] [place] [address] PCP - General Family Medicine 10/25/22 Rosa M Platt RN [address] [facility] [place] [address] Registered Nurse Family Medicine 03/01/23 Land Surveying Survey Worker Relationship Specialty Start Date End Date Rosa M Gonzales MD [address] [place] [address] PCP - General Family Medicine 10/25/22 Rosa M Platt RN [address] [facility] [place] [address] Registered Nurse Family Medicine 03/01/23 Land Surveying Survey Worker Relationship Specialty Start Date End Date Rosa M Gonzales MD [address] [place] [address] PCP - General Family Medicine 10/25/22 Rosa M Gonzales MD [address] [facility] [place] [address] PCP - [employer] 04/17/23 Rosa M Platt, RN [address] [place] [address] Registered Nurse Family Medicine 03/01/23 Land Surveying Survey Worker Relationship Specialty Start Date End Date Rosa M Gonzales MD [address] [place] [address] PCP - General Family Medicine 10/25/22 Rosa M Gonzales MD [address] [place] [address] PCP - Human 04/17/23 Rosa M Platt RN [address] [place] [address] Registered Nurse Family Medicine 03/01/23 Team Status: Active Member Role Status Dates Rosa M Gonzales MD Primary Care Provide r Active Team Status: Inactive Member Role Status Dates Rosa M Gonzales MD Primary Care Provider Active Start: December 172024 End: January 06, 2025 Patricia Jolley APRN [employer] TE[employer]ER-C Attending Provider Active Start: December End: January 06, 2025 Land Surveying Survey Worker Relationship Specialty Start Date End Date Rosa M Gonzales MD [address] [place] [address] PCP - General Family Medicine 10/25/22 Rosa M Gonzales MD [address] [place] [address] PCP - Human 04/17/23 Rosa M Platt RN [address] [place] [address] Registered Nurse Family Medicine 03/01/23 Land Surveying Survey Worker Relationship Specialty Start Date End Date Rosa M Gonzales MD [address] [facility] [place] [address] PCP - General Family Medicine 10/25/22 Rosa M Gonzales MD [address] [facility] [place], [place] [id number] PCP - [employer] 04/17/23 Rosa M Platt, TATO [address] [facility] [place] [address] Registered Nurse Family Medicine 03/01/23 Reason for Visit (unrecogniz ed section and content) Reason Comments Rash Along throat/chest, right side. Started couple of days ago. Reason Comments Rash Reason Comments Med Refill Reason Comments Skin Check Reason Comments Mohs Micrographic Surgery Reason Comments Follow-up Reason Comments Dizziness Reason Comments Mohs Micrographic Surgery Follow-up Reason Comments Suture / Staple Removal Follow-up Suspicious Skin Lesion Goals (unrecognized section and content) Goals may be documented in a n alternate section FOR RECORDS PERTAINING TO PATIENTS WHO ARE [...] BE BASED ON THE PRIMARY CLINICAL RECORDS. [employer] provides no warranty or guarantee of the accuracy or completeness of information in this document.
[2025-01-20 08:54] LABS: Hematocrit 43.7 % (42.0-54.0); Hemoglobin 14.2 g/dL (14.0-18.0); Immature Granulocytes Abs Auto 0.01 10^3/uL (0.00-0.03); Immature Granulocytes Pct Auto 0.2 % (0.0-0.5); Lymphocytes Absolute Auto 0.9 10^3/uL (1.2-3.8); Mean Corpuscular HGB Conc 32.5 g/dL (29.9-35.2); Mean Corpuscular Hemoglobin 29.3 pg (25.9-34.0); Mean Corpuscular Volume 90.1 fL (80.0-94.0); Platelet Count 198 10^3/uL (150-450); Red Blood Count 4.85 10^6/uL (4.70-6.10); White Blood Count 5.4 10^3/uL (4.0-11.0)
[2025-01-20 10:11] LABS: Alanine Aminotransferase 28 U/L (16-63); Albumin Globulin Ratio 1.2; Albumin Level 3.6 g/dL (3.4-5.0); Alkaline Phosphatase 95 U/L (46-116); Anion Gap 10.3; Aspartate Amino Transferase 17 U/L (15-37); Blood Urea Nitrogen 20.0 mg/dL (7.0-18.0); Calcium 8.7 mg/dL (8.5-10.1); Carbon Dioxide 26.8 mmol/L (21.0-32.0); Chloride 106 mmol/L (98-107); Estimated GFR (African America >60 (>=60 mL/min/1.73m^2); Estimated GFR (Non-African Ame 57 (>=60 mL/min/1.73m^2); Globulin 3.0 g/dL; Glucose 141 mg/dL (74-106); Magnesium 1.7 mg/dL (1.8-2.4); Potassium 4.1 mmol/L (3.5-5.1); Sodium 139 mmol/L (136-145); Total Protein 6.6 g/dL (6.4-8.2); Uric Acid 6.3 mg/dL (3.5-7.2)
[2025-01-22 19:08] LABS: Tacrolimus (FK506), Blood 6.9 ng/mL (5.0-20.0)
== END 2025-01-20 08:16 | disposition home or self-care (01) ==
PROVIDERS: PCP Family Medicine; Visit Provider Nurse Practitioner Family
DX: R73.01 Impaired fasting glucose (principal); Z94.0 Kidney transplant status
CPT/HCPCS: 36415; 80053; 80197; 82248; 83735; 84100; 84550; 85025

== ENCOUNTER 2025-02-20 07:58 | Outpatient (OUT) | payer MEDICARE, SELFPAY ==
--- OUTSIDE RECORDS SUMMARY | 2025-02-20 08:03 | XMS_ITS | Clinical Summary ---
Author Organization [facility] Address [address] [place] [address] Care Team Providers Care Computer Numeric Control Setter Name Role Phone Rosa M Del Toro MD Primary Care Provider [phone] Bobby Agee MD Unavailable Petey Redding CNP Unavailable [phone] Guido Campos MD Unavailable [phone] Allergies No known active allergies Medications MedicationSigDispense QuantityRefillsLast FilledStart DateEnd DateStatus aspirin 81 mg EC tablet Take 81 mg by mouth in the morning.Active magnesium oxide (Mag-Ox) 400 mg tablet 400 mg three times daily. Take 3 tabletsActive albuterol (ProAir HFA) 90 mcg/actuation inhaler Indications:Dyspnea on exertionInhale 2 puffs every 4 (four) hours if needed for wheezing or shortness of breath. 8.5 g ctive nitroglycerin (Nitrostat) 0.4 mg SL tablet Indications:Coronary artery disease involving [place] coronary artery of [place] heart without angina pectorisPlace 1 tablet (0.4 mg) under the tongue every 5 (five) minutes if needed for chest pain. 25 tablet ctive mycophenolate (Myfortic) 180 mg EC tablet Indications:Aftercare following organ transplantTake 3 tablets (540 mg) by mouth two times daily. 540 tablet 5Active empagliflozin (Jardiance) 10 mg Indications:Congestive heart failure, unspecified HF chronicity, unspecified heart failure type (CMS/HCC)Take 1 tablet (10 mg) by mouth once daily as directed. 90 tablet 506Active tacrolimus (Prograf) 0.5 mg capsule Indications:Kidney replaced by transplantTake 1 capsule (0.5 mg) by mouth two times daily. 60 capsule 11006/11/6526496Active ranolazine (Ranexa) 500 mg 12 hr tablet Indications:Coronary artery disease, unspecified vessel or lesion type, unspecified whether angina present, unspecified whether [place] or transplanted heartTake 1 tablet (500 mg) by mouth two times daily. Do not crush, chew, or split. 180 tablet ctive atorvastatin (Lipitor) 80 mg tablet Indications:Coronary artery disease, unspecified vessel or lesion type, unspecified whether angina present, unspecified whether [place] or transplanted heartTake 1 tablet (80 mg) by mouth at bedtime. 90 tablet 6Active lisinopril 5 mg tablet Indications:Aftercare following organ transplant,Essential hypertensionTAKE 1 TABLET BY MOUTH IN THE MORNING 90 tablet 5Active isosorbide mononitrate ER (Imdur) 60 mg 24 hr tablet Indications:Chest pain, unspecified typeTake 1 tablet (60 mg) by mouth once daily as directed. Do not crush or chew. 90 tablet 5Active clopidogrel (Plavix) 75 mg tablet Indications:Coronary artery disease, unspecified vessel or lesion type, unspecified whether angina present, unspecified whether [place] or transplanted heartTake 1 tablet (75 mg) by mouth once daily as directed. 90 tablet /ctive metoprolol succinate XL (Toprol-XL) 100 mg 24 hr tablet Indications:PalpitationsTake 1 tablet (100 mg) by mouth in the morning. Do not crush or chew. 90 tablet /ctive esomeprazole (NexIUM) [address] capsule Indications:Gastroesophageal reflux disease without esophagitisTake 1 capsule (40 mg) by mouth before breakfast. Do not open capsule. 90 capsule 5Active Active Problems ProblemNoted DateDiagnosed TryaYuaqflwhip39/02/2024History of colon polyps 03/18/2024Screen for colon kjwlku7903/18/2024ardiac arrest with ventricular zlbxnlgyhzfr60/19//hest pain/Impaired fasting pmoifkf6302/27/2023hronic obstructive pulmonary xuqzfen8001/24/2023DPKD (autosomal dominant polycystic kidney disease)01/24/2023KD (polycystic kidney disease) 12/21/2022Renal atgyujh47seudophakia Active lselkqi03cute non-ST elevation myocardial infarction (NSTEMI)enign prostatic hyperplasia with urinary wadsfvgaovh46hronic gout due to renal impairment of multiple sites without eycjqp10oronary artery disease involving [place] coronary artery of [place] heart with unstable angina byibxhdk84/25/2023 12/05/2022 Overview (12/05/2022): Follows with Dr Santiago. Next visit 12/07. Notswhzncauf25/25/202308/History of kidney Hypervitaminosis A0Lower urinary tract symptoms due to benign prostatic uebpilhloai34Male fouggurkwyty01 Microscopic fbucrycaq72Mixed xbxsrikpucmpmm14/25/2023 12/05/2022Myocardial axlipsmbyr41Neuropathy11/08/2022 12/05/20222011Trqsuest61Upper respiratory eszxookin87/25/2023 12/05/2022Status post insertion of drug-eluting stent into left anterior descending (LAD) artery for coronaryartery xmmzimy82/ Ventricular puwlsagztyb12ge-related nuclear cataract of left eye/CO (posterior capsular opacification), right10/25/2022 12/05/2022ost-COVID chronic xbougof2810/24/2022hronic systolic congestive heart hwjqugk6710/24/2022Elevated ekhxcvudxy93/04/2023ftercare following organ dedlkbijwa06/18/2023idney replaced by qqeoymjfgh72/18/2023Electrolyte vogsdsespgb95/18/2775Mgmldbsedrdhsqrmg50/18/2023olycystic kidney disease, autosomal xbsiclmj98/18/2023Increased infection risk status post immunosuppressive ixopbgl99History of kidney transplant Overview (12/05/2022): Cont meds as per recommedations of renal team. History of renal colgkcpyhu57End-stage renal cqgphrg9801/20/2016 12/05/2022cute pxszkrexfd99Stage 4 chronic kidney disease Overview (12/05/2022): SEC TP PKD -CREATININE NOW 2.5-3MG/DL ON TRANSPLANT LIST. Nzsbjeqqlkglxt29outy zcjqldcjkey14 Overview (12/05/2022): STABLE STABLE Gastroesophageal reflux supqcxf83/25/oronary atherosclerosis Overview (12/05/2022): S/P CABG NOV 2008 Sjgeibavboibch96 Overview (12/05/2022): PKD PKD Stage 3 chronic kidney bfjioje70 Overview (12/05/2022): SEC TO ADPKD WITH BASELINE CREAT 2-2.5 SEC TO ADPKD WITH BASELINE CREAT 2-2.5 Najroybtjckp02/01/45348012/05/2022 Overview (12/05/2022): CONTROLLED AT HOME CONTROLLED AT HOME CONTROLLED AT HOME CONTROLLED AT HOME Elevated hematocrit Encounters DateTypeDepartmentCare FqeaUikpivcmskz32/24/2025[facility] [address] [place] [facility] [place] [address] Vi Ballard MA Gastroesophageal reflux disease without ugyltgzpyyx88/24/2025Orders Only [facility] [address] [place] [facility] [place] [address] Vi Ballard MA 01/08/2025Telephone [facility] [address] [place] [facility] [place] [address] Vi Ballard MA 01/07/2025[facility] [address] [place] [facility] [place] [address] Federico Chester MD Gastroesophageal reflux disease without esophagitisfrom Last 3 Months Immunizations ImmunizationAdministration DatesNext DueModerna Covid-19 vaccine, 12&up 03/30/2023 Family History Medical HistoryRelationNameCommentsCoronary artery diseaseFatherAlzheimer's diseaseMotherRelationNameStatusCommentsFatherDeceasedMotherDeceased Social History Tobacco UseTypesPacks/DayYears UsedDateSmoking Tobacco: BnjripHshqxeqfrz8721222 - 2008Smokeless Tobacco: Never Tobacco Cessation:Counseling Given: Not Answered Alcohol UseStandard Drinks/WeekCommentsYes1 (1 standard drink = 0.6 oz pure alcohol)occasionalHumiliation, Afraid, Rape, and Kick questionnaireAnswerDate RecordedWithin the last year, have you been afraid of your partner or ex-partner?No01/25/2023Emotionally AbusedNot on file01/25/2023hysically Abused Not on file01/25/2023Sexually AbusedNot on file01/25/2023Overall Financial Resource Strain (CARDIA)AnswerDate RecordedHow hard is it for you to pay for the very basics like food, housing, medical care, and heating?Not hard at all 01/25/2023HQ-2AnswerDate RecordedPatient Health Questionnaire-2 Score0 04/11/2024UT Safety & EnvironmentAnswerDate RecordedWithin the last year, have you been afraid of your partner or ex-partner?No01/25/2023Emotionally AbusedNot on file01/25/2023hysically AbusedNot on file01/25/2023Sexually AbusedNot on file01/25/2023In the past year have you been physically or sexually abused? Unrecognized value01/25/2023TransportationAnswerDate RecordedIn the past 12 months, has lack of transportation kept you from medical appointments or from getting medications?No01/25/2023Lack of Transportation (Non-Medical)Not on file 01/25/2023Housing Stability Vital SignAnswerDate RecordedUnable to Pay for Housing in the Last YearNot on file01/25/2023Number of Places Lived in the Last YearNot on file01/25/2023In the last 12 months, was there a time when you did not have a steady place to sleep or slept in ashelter (including now)?No 01/25/2023Hunger Vital SignAnswerDate RecordedWithin the past 12 months, you worried that your food would run out before you got the money to buymore.Never true01/25/2023Ran Out of Food in the Last YearNot on file01/25/2023Sex and Gender InformationValueDate RecordedSex Assigned at CtwbrRiui16/11/2022 7:18 AM EDTLegal CitUfuu8410/13/2021 10:33 PM EDTGender OwkhaseiPgos83/11/2022 7:18 AM EDT Sexual OrientationHeterosexual or Wpyiszyk69/11/2022 7:18 AM EDT Last Filed Vital Signs Vital SignReadingTime TakenCommentsBlood Keabyyvi780/7007 2:36 PM EDT Rxzsn0995 2:36 PM JLDPhulrrtbspp15.7 ??C (98 ??F)04/11/2024 10:47 AM EST Respiratory Wtwj4307 2:36 PM EDTOxygen Edhvwiiacl50%10/17/2024 2:36 PM EDTInhaled Oxygen Concentration--Ikbybk72 kg (205 lb)10/17/2024 2:36 PM EDT Vmwmix597.3 cm (5' 11 )10/17/2024 2:36 PM EDTBody Mass Index28.5907 2:36 PM EDT Plan of Treatment DateTypeDepartmentCare Team (Latest Contact Info)Qenvbgltivu18/08/2026 1:30 PM ESTFollow-Up [facility] [address] [place] [address] Sean Aden, LABEL STITCHER [address] [place] [address] Health MaintenanceDue DateLast DoneCommentsCT Obgeqgmwepps36/11/1961FIT-DNA 1960FIT1960FOBT1960Medicare Annual Wellness (AWV)1960 Owgtyypknzlgf52/11/1961Diabetes: Retinopathy Owpikpzko58/11/1971Diabetes: Urine Protein Wvufmliot47/11/1980Pneumococcal Vaccine: Pediatrics (0 to 5 Years) and At-Risk Patients (6 to 64 Years) (1 of 2 - PCV)12/27/1979Zoster Vaccines (1 of 2)12/27/1979Adult Ajrxbdq8312/26/1982Diabetes: Hemoglobin A1C/, 05/18/2023, 02/09/2023, Additional history existsCOVID-19 Vaccine ( season), 12/30/2021, 12/30/2021, Additional history exists Influenza Vaccine (#1), 01/13/2023, 01/13/2022, Additional history existsDepression Cxkryiiqx16/26/38782306/12/20233135Hukbwmcwztu24/26/2034 01/11/2024, 02/01/2013Colorectal Cancer Pdqdkeuxx68/26/2034HIB VaccinesAged Out No longer eligible based on patient's age to complete this topicHPV VaccinesAged OutNo longer eligible based on patient's age to complete this topicIPV Vaccines Aged OutNo longer eligible based on patient's age to complete this topic Meningococcal B VaccineAged OutNo longer eligible based on patient's age to complete this topicMeningococcal VaccineAged OutNo longer eligible based on patient's age to complete this topicRotavirus VaccinesAged OutNo longer eligible based on patient's age to complete this topic Medical Devices ImplantedTypeAreaManufacturerDevice IdentifierShelf Expiration DateModel / Serial / LotStent Implanted:Qty: 7Bilateral: HeartPacer/Aicd ComboBilateral: Heart Procedures Procedure NamePriorityDate/TimeAssociated DiagnosisCommentsHEMOGLOBIN L6CIhkwovk 05/18/2023 9:16 AM EST Impaired fasting glucose from Last 3 Months or Most Recently Relevant to Health Maintenance Results * (ABNORMAL) Hemoglobin A1c (05/18/2023 9:16 AM EST)ComponentValueRef RangeTest MethodAnalysis TimePerformed AtPathologist SignatureHemoglobin A1C6.4(H)4.0 - 6.0 %05/18/2023 1:20 PM [facility] ([place])Estimated Average Glucose 137mg/dL05/18/2023 1:20 PM [facility] ([facility])Specimen (Source) Anatomical Location / LateralityCollection Method / VolumeCollection Time Received TimeBloodVenous blood specimen / UnknownVenipuncture / Unknown 05/18/2023 9:16 AM EST05/18/2023 9:16 AM EST Narrative Authorizing ProviderResult TypeResult StatusObi Cyndie FLOREZ BLOOD ORDERABLES Final ResultPerforming OrganizationAddressCity/State/ZIP CodePhone Number [facility] ([facility]) [address] [place] [address] from Last 3 Months or Most Recently Relevant to Health Maintenance Insurance MemberSubscriberPlan / Payer (Effective 2023-Present)Name:Vishal To Relation to Subscriber:SelfName:Vishal To Payer ID:[id number] (NAIC) Type:Not on file Address: [place] [phone] Advance Directives * Full Code (Latest Code Status on File) Date ActivatedDate TbzpawrleifYttiyovn05/11/2023 3:23 AM01/25/2023 9:56 PM Care Teams Team MemberRelationshipSpecialtyStart DateEnd Date Rosa M Del Toro MD PCP - Cbfsfal98/11/22 Bobby Agee MD [address] [place] [address] [place] [phone] Consulting AmiskveogJlqwczz83/11/22 Petey Redding, LABEL STITCHER [address] [place] [address] [place] [address] Nurse PractitionerUrology09/27/22 Guido Campos MD [facility] [facility] [place] [address] Consulting PhysicianTransplant Surgery12/22/22
--- OUTSIDE RECORDS SUMMARY | 2025-02-20 08:03 | XMS_ITS | Clinical Summary ---
Author Organization [facility] Healthcare Address [address] [place] [address] Care Team Providers Care Manufacturing Coordinator Name Role Phone Rosa M Del Toro MD Primary Care Provider [phone] Rosa M Platt RN Unavailable [phone] Rosa M Del Toro MD Unavailable [phone] Allergies No known active allergies Medications MedicationSigDispense QuantityRefillsLast FilledStart DateEnd DateStatus ranolazine (Ranexa) 500 MG 12 hr tablet Take 500 mg by mouth in the morning and 500 mg before bedtime. Do not crush, chew, or split. 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 90 tablet 12011/08/2022ctive metoprolol succinate XL (Toprol-XL) 200 MG 24 hr tablet Take 100 mg by mouth Daily11/21/2022ctive atorvastatin (Lipitor) 80 MG tablet Take 80 mg by mouth Daily11/21/2022ctive isosorbide mononitrate ER (Imdur) 60 MG 24 hr tablet 07/19/2023ctive mycophenolate (Myfortic) 180 MG EC tablet Indications:Aftercare following organ transplantTake 1 tablet (180 mg) by mouth in the morning and 1 tablet (180 mg) before bedtime. 180 tablet /5Active tacrolimus (Prograf) 0.5 MG capsule Indications:History of kidney transplant (HCC)Take 1 capsule (0.5 mg) by mouth in the morning and 1 capsule (0.5 mg) before bedtime. 180 capsule /6Active amoxicillin (Amoxil) 500 MG capsule TAKE 4 CAPSULES BY MOUTH ONE HOUR PRIOR TO DENTAL APPOINTMENT.07/16/2024tive metoprolol succinate XL (Toprol-XL) 100 MG 24 hr tablet 09/10/2024tive Blood Glucose Monitoring Suppl (Blood Glucose Monitor System) w/Device kit Indications:Type 2 diabetes mellitus with diabetic polyneuropathy (HCC)Use daily or as directed for monitoring of diabetes. Also dispense test strips and lancets of insurance choice. 1 kit /ctive True Metrix Blood Glucose Test test strip use to test BLOOD SUGAR DAILY10/04/2024tive Drug [place] Unilet Lancets 30G misc use to test BLOOD SUGAR DAILY10/04/2024tive albuterol HFA 90 mcg/act inhaler Indications:Simple chronic bronchitis (HCC)Inhale 2 puffs every 4 (four) hours if needed for shortness of breath 18 g /ctive magnesium oxide (Mag-Ox) 400 (240 Mg) MG tablet Indications:History of kidney transplant (HCC)TAKE 1 TABLET BY MOUTH IN THE MORNING then TAKE 1 TABLET BY MOUTH IN THE EVENING then TAKE 1 TABLETBY MOUTH BEFORE bedtime 270 tablet tive mupirocin (Bactroban) 2 % ointment Indications:Basal cell carcinoma of skin of scalp and neckApply to surgical incision on the scalp once daily with wound care x 10 days 22 g 5Active Active Problems ProblemNoted DateDiagnosed DateHistory of colon vkcgfz7403/21/2024Screen for colon pxtetx4703/21/20243695Envqmbwunw17/02/2024ardiac arrest with ventricular fibrillation 06/05/2023hest pain06/05/2023Impaired fasting ngxywru0002/27/2023hronic obstructive pulmonary snhpuna4301/24/2023 Assessment & Plan (10/03/2024 1:07 PM EDT): This has been very stable. Assessment & Plan (11/23/2023 1:08 PM EDT): This has been very stable. Assessment & Plan (07/27/2023 6:13 PM EDT): This has been very stable. PKD (polycystic kidney disease)12/21/2022 Assessment & Plan (10/03/2024 1:07 PM EDT): Assessment & Plan (07/27/2023 6:16 PM EDT): S/P transplant and recent nephrectomy. Renal brifgbz3412/05/20225736Rcgvmdzthhgc49/09/2023cute non-ST elevation myocardial infarction (NSTEMI)11/08/2022enign prostatic hyperplasia with urinary bxlwbvhhune50/25/2023hronic gout due to renal impairment of multiple sites without vlapid3911/08/2022oronary artery disease involving sokaogon coronary artery of sokaogon heart with unstable angina dfwrunrg03/25/2023 Overview (11/08/2022): Follows with Dr Santiago. Next visit 12/07. Assessment & Plan (11/23/2023 1:09 PM EDT): Follows with dr Santiago. Assessment & Plan (07/27/2023 6:15 PM EDT): Follows with dr Santiago. History of kidney radiafm5011/08/20221591Hhftxabuyown92/25/2023Hypervitaminosis A 11/08/2022Lower urinary tract symptoms due to benign prostatic hyperplasia 11/08/2022Male fcxvfifaxzad40/25/2023Microscopic udkstjwie77/25/2023Mixed guanmdxcxswmyi80/25/2023 Assessment & Plan (11/23/2023 1:05 PM EDT): Continue lipitor. Myocardial yjpwezpnxv57/25/5502Onvtolrlil21/25/2578Jpzxiwvs20/25/2023Other abnormality of red blood cells11/08/2022Status post insertion of drug-eluting stent into left anterior descending (LAD) artery for coronaryartery disease 11/08/2022Upper respiratory thdgqruub00/25/2023Ventricular kmcgjewddio22/25/2023 Age-related nuclear cataract of left eye10/25/2022CO (posterior capsular opacification), right10/25/2022hronic systolic congestive heart failure 10/24/2022 Overview (11/08/2022): No signs of lfuid overload. [...] where he is at present. Post-COVID chronic wbyktax5910/24/2022 Overview (02/02/2023): He has continued to have issues since the COVID diagnosis. Not sure what may be related to heart orto lungs or to COVID. This has improved since kidneys removed so may have been a component of that contributing aswell. Assessment & Plan (10/03/2024 1:07 PM EDT): Elevated bueurvagrc08/04/2023Aftercare following organ gufzmrplvy40/18/2023 Electrolyte djhtiolceah15/18/8098Pljrvvctuehhntgrd47/18/2023 Assessment & Plan (11/23/2023 1:10 PM EDT): Medications managed per transplant team. Will keep immunizations updated. Assessment & Plan (02/02/2023 6:34 PM EDT): Medications managed per transplant team. Will keep immunizations updated. Polycystic kidney disease, autosomal wabjgvfc59/18/2023 Assessment & Plan (02/02/2023 6:33 PM EDT): Bilateral kidneys removed. 7 pounds each History of kidney hmnvypnnnk52/14/2020 Overview (11/08/2022): Cont meds as per recommedations of renal team. Assessment & Plan (10/03/2024 1:07 PM EDT): Follows with transplant team. Increased infection risk status post immunosuppressive ubtzxlh3012/30/2019End- stage renal kfzjjcm3401/20/2016 Assessment & Plan (10/03/2024 1:07 PM EDT): S/P Transplant. Whpesdpsivue21/26/2014 Overview (11/08/2022): CONTROLLED AT HOME Acute ekrglavped01/12/2214Bwzpkkgvrwmzud80/07/2013Gouty rrslhwiivsk09/01/2012 Overview (11/08/2022): STABLE Stage 3 chronic kidney fzzfepd0112/09/2009 Overview (11/08/2022): SEC TO ADPKD WITH BASELINE CREAT 2-2.5 Assessment & Plan (10/03/2024 1:07 PM EDT): Gastroesophageal reflux fjdumgh7112/09/2009 Assessment & Plan (12/03/2024 3:06 PM EDT): The nitroglycerin may be easing some esophageal spasm when he takes it. Does not seem to be cardiacissues. Dr Santiago is comfortable with his use of NTG. Assessment & Plan (07/27/2023 6:16 PM EDT): Continue nexium. Dihfsdpanyehak59/25/2010 Overview (11/08/2022): PKD Essential /01/1992 Overview (11/08/2022): CONTROLLED AT HOME Assessment & Plan (10/03/2024 1:07 PM EDT): Assessment & Plan (11/23/2023 1:10 PM EDT): Well controlled. Assessment & Plan (07/27/2023 6:15 PM EDT): Well controlled. Resolved Problems ProblemNoted DateDiagnosed DateResolved DateActive mkkfxju72 Encounters DateTypeDepartmentCare HanvVpaintitugh92/07/2025 11:00 AM EDTClinical Support [facility] [address] [place] [address] Encounter for immunization (Primary Dx)01/21/20251726Jxbovu28/06/2025linisync Result Encounter [facility] External Department Unsolicited Provider, Generic External Data 01/17/2025 10:15 AM EDTOffice Visit [facility] [address] [place] [address] Avelina Fernandez MD Actinic keratosis (Primary Dx); Seborrheic keratosis, inflamed; Encounter for removal of anwjuif8101/17/2025Patient Outreach [facility] [address] [place] [address] Rosa M Platt RN 01/17/2025amboo flowsheet [facility] [address] [place] [address] Avelina Fernandez MD 01/17/20253185Mekgwh43/22/2025[facility]phone [facility] [address] [place] [address] Avelina Pena LPN Courtesy call01/03/2025 8:30 AM EDTOffice Visit [facility] [address] [place] [address] Avelina Fernandez MD Basal cell carcinoma of skin of scalp and neck; Actinic keratosis; Neoplasm of uncertain mzufvhfx70/19/2025amboo flowsheet [facility] [address] [place] [address] Avelina Fernandez MD 01/03/20254754Jybqnx46/11/2025Patient Outreach [facility] [address] [place] [place] [address] Rosa M Platt RN 12/17/2024linisync Result Encounter [facility] External Department Unsolicited Provider, Generic External Data 12/04/2024Refill [facility] [address] [place] [address] Rosa M Del Toro MD History of kidney transplant ([facility])12/03/2024 2:00 PM EDTOffice Visit [facility] [address] [place] [address] Rosa M Del Toro MD Dizziness (Primary Dx); Orthostatic hypotension; Gastroesophageal reflux disease without ygiztwpczgk44/19/2025Refill [facility] [address] [place] [address] Rosa M Del Toro MD Simple chronic bronchitis (HCC)12/03/2024amboo flowsheet [facility] [address] [facility] [place] [address] Rosa M Del Toro MD 12/03/2024Travelfrom Last 3 Months Immunizations ImmunizationAdministration DatesNext DueInfluenza Whole01/11/2013Influenza, injectable, hafpyayjvfnr06/01/2017Influenza, injectable, quadrivalent, preservative free01/13/2023,01/13/2022,05/11/2018,02/16/2018,06/08/2017 Influenza, recombinant, quadrivalent, injectable, preservative free02/01/2021, 02/05/2019Influenza, seasonal, zbkahpzsgv48/12/2020,01/16/2020,01/28/2015 Influenza, seasonal, injectable, preservative free01/21/2025,01/26/2024 Influenza, trivalent, lwqeydrdjt00/07/2020Moderna Bivalent Booster Vaccination 12/30/2021Moderna SARS-CoV-2 50mcg/0.5mL Rncimvr9212/30/2021Moderna SARS-CoV-2 Cmeokgsyvmc86/26/5242KAOQ-VoQ-8, Lwxsjiicgqv71/15/2022 Family History Medical HistoryRelationNameCommentsPolycystic kidney diseaseFatherMelanomaNeg Hx RelationNameStatusCommentsFatherDeceasedMotherDeceased Social History Tobacco UseTypesPacks/DayYears UsedDateSmoking Tobacco: FormerCigarettesQuit: 04/17/2007Smokeless Tobacco: Never Tobacco Cessation:Counseling Given: Not Answered Alcohol UseStandard Drinks/WeekCommentsNot Currently1 (1 standard drink = 0.6 oz pure alcohol)Caffeine intake : 1-2 cups per dayHumiliation, Afraid, Rape, and Kick questionnaireAnswerDate RecordedWithin the last year, have you been afraid of your partner or ex-partner?No11/01/2022Within the last year, have you been humiliated or emotionally abused in other ways by your partner or ex-partner?No 11/01/2022Within the last year, have you been kicked, hit, slapped, or otherwise physically hurt by your partner or ex-partner?No11/01/2022Within the last year, have you been raped or forced to have any kind of sexual activity by your part ner or ex-partner?No11/01/2022Social Connection and Isolation PanelAnswerDate RecordedIn a typical week, how many times do you talk on the phone with family, friends, or neighbors?More than three times a week11/01/2022How often do you get together with friends or relatives?Three times a week11/01/2022How often do you attend roman catholic or advent services?1 to 4 times per year11/01/2022o you belong to any clubs or organizations such as roman catholic groups, unions, fraternal or athletic groups, or school groups?Yes11/01/2022How often do you attend meetings of the clubs or organizations you belong to?1 to 4 times per year11/01/2022re you , , , , never , or living with a partner?Agplgwq2111/01/2022UDIT-CAnswerDate RecordedQ1: How often do you have a drink containing alcohol?Monthly or less11/01/2022Q2: How many drinks containing alcohol do you have on a typical day when you are drinking?1 or Q3: How often do you have six or more drinks on one occasion?Never11/01/2022Overall Financial Resource Strain (CARDIA)AnswerDate RecordedHow hard is it for you to pay for the very basics like food, housing, medical care, and heating?Not hard at all11/01/2022HQ-2AnswerDate RecordedPatient Health Questionnaire-2 Score0 10/03/2024[facility] [place] [facility] - Occupational Stress QuestionnaireAnswerDate RecordedDo you feel stress - tense, restless, nervous, or anxious, or unable to sleep at night because yourmind is troubled all the time - these days?Not at all11/01/2022Exercise Vital SignAnswerDate RecordedOn average, how many days per week do you engage in moderate to strenuous exercise (like a brisk walk)?4 days11/01/2022On average, how many minutes do you engage in exercise at this level?50 min11/01/2022Hunger Vital SignAnswerDate Recorded Within the past 12 months, you worried that your food would run out before you got the money to buymore.Never true11/01/2022Within the past 12 months, the food you bought just didn't last and you didn't have money to get more.Never true 11/01/2022RAPARE - TransportationAnswerDate RecordedIn the past 12 months, has lack of transportation kept you from medical appointments or from getting medications?No11/01/2022In the past 12 months, has lack of transportation kept you from meetings, work, or from getting things needed for daily living?No 11/01/2022Housing Stability Vital SignAnswerDate RecordedIn the last 12 months, was there a time when you were not able to pay the mortgage or rent on time?No 11/01/2022In the last 12 months, how many places have you lived? Unstable Housing in the Last YearNot on file11/01/2022Sex and Gender Information ValueDate RecordedSex Assigned at BirthNot on fileLegal BvvUqpf0306/29/2022 7:40 PM EDTGender XmigdsiqMsmn87/15/2023 7:40 PM EDTSexual OrientationNot on file Last Filed Vital Signs Vital SignReadingTime TakenCommentsBlood Wpsimzjx108/8009 9:00 AM EDT Tijjz629912/03/2024 1:53 PM XCDBnjsbetdqpu14.3 ??C (97.4 ??F)07/27/2023 1:35 PM EDTRespiratory Rate--Oxygen Nlabfvjbmz14%12/03/2024 1:53 PM EDTInhaled Oxygen Concentration--Pawths51.7 kg (206 lb 9.6 oz)12/03/2024 1:53 PM CGEYmjukq554.3 cm (5' 11 )12/03/2024 1:53 PM EDTBody Mass Index28.8112/03/2024 1:53 PM EDT Plan of Treatment DateTypeDepartmentCare Team (Latest Contact Info)Igwvmekarji12/07/2026 1:15 PM EDTOffice Visit [facility] [address] [place] [address] Kimberlyn Fishman MD [address] [place] [address] Health MaintenanceDue DateLast DoneCommentsCT Yhwgxtfqfias38/11/1961FIT-DNA 1960FIT1960FOBT1960 0777Afseyzqjiwryv88/11/1961Diabetes: Urine Protein Cpelmfdfj48/11/1980Pneumococcal Vaccine: Pediatrics (0 to 5 Years) and At-Risk Patients (6 to 64 Years) (1 of 2 - PCV)12/27/1979Diabetes: Retinopathy Ygppejiew90, 10/25/2022, 10/25/2022, Additional history exists Diabetes: Hemoglobin A1C/, 03/05/2024, 05/18/2023, Additional history existsCOVID-19 Vaccine ( season)/, 12/30/2021, 12/30/2021, Additional history existsMedicare Annual Wellness (AWV) /, 3215Zjfmelzjrqj16, 01/11/2024, 02/01/2013Colorectal Cancer Wiwfphwev38/11/2034Influenza VaccineCompleted 01/21/2025, 01/26/2024, 01/13/2023, Additional history exists Procedures Procedure NamePriorityDate/TimeAssociated DiagnosisCommentsTACROLIMUS (FK506), LSLMLQmdyjhx41/06/2025 8:46 AM EDT METRO BILIRUBIN, JVXGCFBylfnhq23/06/2025 8:46 AM EDT ALL KIWGECPSNPvhlhyf26/06/2025 8:46 AM EDT ALL NXYJGNRTFRWAysiywp14/06/2025 8:46 AM EDT ALL URIC CTNXMjukiyl62/06/2025 8:46 AM EDT [facility] CMP (CMP) (FOR REMOTE [facility] USE)Pgxjmgm74/09/2024 8:46 AM EDT ALL CBC WITH AUTO IZSNZpezdwn04/06/2025 8:46 AM EDT CRYOTHERAPY SKIN GASSVJElnnohb54/03/2025 10:48 AM EDT Actinic keratosis CRYOTHERAPY SKIN EJFMDHHdkfgrw03/03/2025 10:48 AM EDT Seborrheic keratosis, inflamed SKIN KCVINJLitdljr67/19/2025 11:48 AM EDT Basal cell carcinoma of skin of scalp and neck CRYOTHERAPY SKIN IDXWAUWfhkreh45/19/2025 8:55 AM EDT Actinic keratosis MOHS MXSNUKUIzzydue40/19/2025 8:16 AM EDT Basal cell carcinoma of skin of scalp and neck SRMCOH TESTOSTERONE FREE/TOT DJUZLRTPxlmdyc61/02/2025 8:50 AM EDT TACROLIMUS (FK506), TBEJQMndpeym41/02/2025 8:50 AM EDT METRO SEX BINDING HORMONE (SHBG), TESTOSTERONE, FREE AND BIOAVAILABLERoutine 12/17/2024 8:50 AM EDT BKV QUANT HMFGugmyiq48/02/2025 8:50 AM EDT MLR HEMOGLOBIN H2ZNpvadny16/02/2025 8:50 AM EDT ALL LIPID PROFILE (FASTING)Ujsyvob9012/17/2024 8:50 AM EDT METRO BILIRUBIN, GCREHBEovckha77/02/2025 8:50 AM EDT ALL FSGWTLPJMUhjjlji76/02/2025 8:50 AM EDT ALL EHHXPUDFNYGNfkhfmw58/02/2025 8:50 AM EDT ALL URIC EQGGQdmfoax31/02/2025 8:50 AM EDT [facility] CMP (CMP) (FOR REMOTE [facility] USE)Jgeilaf4512/17/2024 8:50 AM EDT ALL CBC WITH AUTO EESGUjrwlaz01/02/2025 8:50 AM EDT HEMOGLOBIN L5YWltmmul48/27/2025HM FSLWBJUMZJCEmbmsrs04/11/2024 3:11 PM EDTCOLOR FUNDUS PHOTOGRAPHY - OU - BOTH LABKXzunvax40/01/2022 12:00 PM EST from Last 3 Months or Most Recently Relevant to Health Maintenance Results * TACROLIMUS (FK506), BLOOD (01/20/2025 8:46 AM EDT) Only the most recent of2 resultswithin the time period is included. ComponentValueRef RangeTest MethodAnalysis TimePerformed AtPathologist Signature TACROLIMUS (FK506), BLOOD6.95.0 - 20.0 ng/mLTBHComment: This test was developed and its performance characteristics determined by [employer]. It has not been cleared or approved by the Food and Drug Administration. Target steady state trough concentration for Tacrolimus varies based on type of organ transplant immunosuppressive protocol and other patient specific factors. ??Tacrolimus trough concentrations should be interpreted in conjunction with clinical assessments of rejection and tolerability. ??Values obtained with different assay methods cannot be used interchangeably due to differences in assay methods and cross-reactivty with metabolites, nor should correction factors be applied. ??Therefore, consistent use of one assay for individual patients is recommended. Detection Limit = 0.5 ng/mL Performed by LC-MS/MS technology. Performed at: ?? - [facility] ??[id number] Cyber Forensic Specialist: Evan Orozco MD, Phone: ??[phone] Specimen (Source)Anatomical Location / LateralityCollection Method / Volume Collection TimeReceived Time01/20/2025 8:46 AM EDT1 8:46 AM EDT Narrative HELEN - 01/22/2025 7:08 PM EDT Authorizing ProviderResult TypeResult StatusGeneric External Data ProviderLAB BLOOD ORDERABLESFinal ResultPerforming OrganizationAddressCity/State/ZIP Code Phone Number [facility] * [facility]RO BILIRUBIN, DIRECT (01/20/2025 8:46 AM EDT) Only the most recent of2 resultswithin the time period is included. ComponentValueRef RangeTest MethodAnalysis TimePerformed AtPathologist Signature BILIRUBIN DIRECT0.10.0 - 0.2 mg/dLTBHSpecimen (Source)Anatomical Location / LateralityCollection Method / VolumeCollection TimeReceived Time01/20/2025 8:46 AM EDT1 8:46 AM EDT Narrative CLINISYNC - 01/20/2025 10:26 AM EDT Authorizing ProviderResult TypeResult StatusGeneric External Data Provider CLINISYNCFinal ResultPerforming OrganizationAddressCity/State/ZIP CodePhone Number HELEN DUMONT * (ABNORMAL) [facility] CMP (CMP) (FOR REMOTE [facility] USE) (01/20/2025 8:46 AM EDT) Only the most recent of2 resultswithin the time period is included. ComponentValueRef RangeTest MethodAnalysis TimePerformed AtPathologist Signature OUCBWJ354706 - 145 mmol/LTBHPOTASSIUM4.13.5 - 5.1 mmol/UKLITEHALDXA37183 - 107 mmol/LTBHCARBON IGNNWBE07.821.0 - 32.0 mmol/LTBHANION GAP10.9GOBAHHAKFE154(H)74 - 106 mg/dLTBHBLOOD UREA XHVVGZGP93.0(H)7.0 - 18.0 mg/dLTBHCREATININE1.270.70 - 1.30 mg/dLTBHTBH EGFR-AF CONGOLESE>60>=60 mL/min/1.73m 2TBHTBH EGFR-NON AF PMZBNRHH48(L)>=60 mL/min/1.73m 2TBHBUN CREATININE RATIO15.0JHZGCHPGTA2.78.5 - 10.1 mg/dLTBHBILIRUBIN TOTAL0.60.2 - 1.0 mg/dLTBHASPARTATE AMINO CJKKMOGRHVF3421 - 37 U/LTBHALANINE MTFSHCGBUPVNPBFH9680 - 63 U/LTBHALKALINE YUCHGMXIOOL1275 - 116 U/LTBHTOTAL PROTEIN6.66.4 - 8.2 g/dLTBHALBUMIN LEVEL3.63.4 - 5.0 g/dLTBH GLOBULIN3.0g/dLTBHALBUMIN GLOBULIN RATIO1.2TBHSpecimen (Source)Anatomical Location / LateralityCollection Method / VolumeCollection TimeReceived Time 01/20/2025 8:46 AM EDT1 8:46 AM EDT Narrative CLINISYNC - 01/20/2025 10:26 AM EDT Authorizing ProviderResult TypeResult StatusGeneric External Data Provider CLINISYNCFinal ResultPerforming OrganizationAddressty/State/ZIP CodePhone Number [facility] * ALL URIC ACID (01/20/2025 8:46 AM EDT) Only the most recent of2 resultswithin the time period is included. ComponentValueRef RangeTest MethodAnalysis TimePerformed AtPathologist Signature URIC ACID6.33.5 - 7.2 mg/dLTBHSpecimen (Source)Anatomical Location / Laterality Collection Method / VolumeCollection TimeReceived Time01/20/2025 8:46 AM EDT 01/20/2025 8:46 AM EDT Narrative CLINISYNC - 01/20/2025 10:26 AM EDT Authorizing ProviderResult TypeResult StatusGeneric External Data Provider CLINISYNCFinal ResultPerforming OrganizationAddBryn [facility] Rehabilitation Hospitalty/State/ZIP CodePhone Number [facility] * ALL PHOSPHOROUS (01/20/2025 8:46 AM EDT) Only the most recent of2 resultswithin the time period is included. ComponentValueRef RangeTest MethodAnalysis TimePerformed AtPathologist Signature PHOSPHORUS3.52.6 - 4.7 mg/dLTBHSpecimen (Source)Anatomical Location / Laterality Collection Method / VolumeCollection TimeReceived Time01/20/2025 8:46 AM EDT 01/20/2025 8:46 AM EDT Narrative CLINISYNC - 01/20/2025 10:26 AM EDT Authorizing ProviderResult TypeResult StatusGeneric External Data Provider CLINISYNCFinal ResultPerforming OrganizationAddBryn [facility]aw[facility] Rehabilitation Hospitalty/State/ZIP CodePhone Number [facility] * (ABNORMAL) ALL MAGNESIUM (01/20/2025 8:46 AM EDT) Only the most recent of2 resultswithin the time period is included. ComponentValueRef RangeTest MethodAnalysis TimePerformed AtPathologist Signature MAGNESIUM1.7(L)1.8 - 2.4 mg/dLTBHSpecimen (Source)Anatomical Location / LateralityCollection Method / VolumeCollection TimeReceived Time01/20/2025 8:46 AM EDT1 8:46 AM EDT Narrative CLINISYNC - 01/20/2025 10:26 AM EDT Authorizing ProviderResult TypeResult StatusGeneric External Data Provider CLINISYNCFinal ResultPerforming OrganizationAddressCity/State/ZIP CodePhone Number [facility] * (ABNORMAL) ALL CBC WITH AUTO DIFF (01/20/2025 8:46 AM EDT) Only the most recent of2 resultswithin the time period is included. ComponentValueRef RangeTest MethodAnalysis TimePerformed AtPathologist Signature TBH WBC5.44.0 - 11.0 10 3/uLTBHTBH RBC4.854.70 - 6.10 10 6/uLTBHTBH HGB14.214.0 - 18.0 g/dLTBHTBH HCT43.742.0 - 54.0 %TBHTBH MCV90.180.0 - 94.0 fLTBHTBH MCH29.3 25.9 - 34.0 pgTBHTBH MCHC32.529.9 - 35.2 g/dLTBHTBH RDW14.411.0 - 15.0 %TBHTBH JQS938282 - 450 10 3/uLTBHTBH MPV10.39.5 - 13.5 fLTBHNEUTROPHILS PERCENT AUTO 71.343.0 - 75.0 %TBHLYMPHOCYTES PERCENT AUTO15.9(L)20.5 - 60.0 %TBHMONOCYTES PERCENT AUTO10.71.7 - 12.0 %TBHTBH EO %1.50.9 - 7.0 %TBHBASOPHILS PERCENT AUTO 0.40.2 - 2.0 %TBHIMMATURE GRANULOCYTES PCT AUTO0.20.0 - 0.5 %TBHNEUTROPHILS ABSOLUTE AUTO3.81.4 - 6.5 10 3/uLTBHLYMPHOCYTES ABSOLUTE AUTO0.9(L)1.2 - 3.8 10 3/uLTBHMONOCYTES ABSOLUTE AUTO0.60.3 - 0.8 10 3/uLTBHTBH EO #0.10.0 - 0.7 10 3/uLTBHBASOPHILS ABSOLUTE AUTO0.00.0 - 0.1 10 3/uLTBHIMMATURE GRANULOCYTES ABS AUTO0.010.00 - 0.03 10 3/uLTBHSpecimen (Source)Anatomical Location / Laterality Collection Method / VolumeCollection TimeReceived Time01/20/2025 8:46 AM EDT 01/20/2025 8:46 AM EDT Narrative HELEN - 01/20/2025 9:01 AM EDT Authorizing ProviderResult TypeResult StatusGeneric External Data Provider CLINISYNCFinal ResultPerforming OrganizationAddressCity/State/ZIP CodePhone Number [facility] * Cryotherapy, skin lesion (01/17/2025 10:48 AM EDT) Narrative Authorizing ProviderResult TypeResult StatusAvelina Fernandez [facility] PROCEDURE ORDERABLESFinal Result * Cryotherapy, skin lesion (01/17/2025 10:48 AM EDT) Narrative Authorizing ProviderResult TypeResult StatusAvelina Fernandez [facility] PROCEDURE ORDERABLESFinal Result * Skin repair (01/03/2025 11:48 AM EDT) Narrative Brooklynn Zavala MA - 01/03/2025 11:48 AM EDT Complexity: Intermediate Final length (cm): ??3.4 Timeout: patient name, date of , surgical site, and procedure verified ?? Procedure prep: ??Patient was prepped and draped in usual sterile fashion Prep type: ??Chlorhexidine Anesthesia: the lesion was anesthetized in a standard fashion ?? Local anesthetic: 3.0 cc. Reason for type of repair: reduce tension to allow closure, allow closure of the large defect and preserve normal anatomy ?? Undermining: edges undermined ?? Undermining comment: ??The surrounding tissue was undermined until the skin edges could be approximated without undue tension. Any tissue redundancies were removed. Subcutaneous layers (deep stitches): Suture size: ??3-0 Suture type comment: ??Biosyn Stitches: ??Buried horizontal mattress (Closure was performed in a layered fashion with subcutaneous tissue closed first using tension-bearing absorbable sutures to the level of the superficial fascia.) Fine/surface layer approximation (top stitches): Suture size: ??4-0 Suture type: Prolene (polypropylene) ?? Stitches: simple running ?? Stitches comment: ??Epicuticular skin sutures were then placed with minimal tension. Suture removal (days): ??14 Hemostasis achieved with: suture and electrodesiccation Outcome: patient tolerated procedure well with no complications ?? Post-procedure details: sterile dressing applied and wound care instructions given ?? Post-procedure details comment: ??It was emphasized to the patient to contact the office for any signs of infection, uncontrollable bleeding, or complications. Dressing type: bandage and pressure dressing ?? Authorizing ProviderResult TypeResult Status[facility] PROCEDURE ORDERABLESFinal Result * Cryotherapy, skin lesion (01/03/2025 8:55 AM EDT) Narrative Authorizing ProviderReschristus st. [facility] TypeResResearch Psychiatric Centerc[facility] PROCEDURE ORDERABLESFinal Result * Mohs surgery (01/03/2025 8:16 AM EDT) Narrative Brooklynn Zavala MA - 01/03/2025 8:16 AM EDT Consent obtained: written (The rationale for Mohs as well as the risks, benefits, and alternatives. The risks of infection, scarring, bleeding, prolonged wound healing, incomplete removal, allergy to anesthesia or meds, nerve injury, and recurrence were addressed.) [place] Protocol: Procedure explained and questions answered to patient or proxy's satisfaction: Yes ?? Test results available and properly labeled: Yes ?? Pathology report reviewed: Yes ?? Photo or diagram used for site identification: Yes ?? Site/side marked: Yes ?? Anticoagulation: Is the patient taking prescription anticoagulant and/or aspirin prescribed/recommended by a physician? Yes (81 mg ASA, Plavix) ?? Was the anticoagulation regimen changed prior to Mohs? No ?? Anesthesia: Anesthesia method: local infiltration Local anesthetic: lidocaine 1% WITH epi and sodium bicarbonate Procedure Details: Biopsy accession number: [id number] Biopsy lab: [facility] skin [facility] Frozen section biopsy performed: Yes ?? Specimen debulked: No ?? Pre-Op diagnosis: basal cell carcinoma BCC subtype: nodular MohsAIQ Surgical site (if tumor spans multiple areas, please select predominant area): scalp Surgery side: right Surgical site (from skin exam): Right Parietal Scalp Pre-operative length (cm): 1.2 Pre-operative width (cm): 1.2 Indications for Mohs surgery: anatomic location where tissue conservation is critical, ill-defined borders and immunocompromised Previously treated? No ?? Mohs Appropriate Use Criteria Score: 9 Details of micrographic surgery: [facility] accession number: [id number] Micrographic Surgery Details: Post-operative length (cm): 1.7 Post-operative width (cm): 1.5 Number of Mohs stages: 2 Post surgery depth of defect: dermis Stage 1 ?? Comments: The area was prepped with Iodine, [...] tissue sections, stained, and evaluated by Dr. Fernandez for interpretation of deep and peripheral margins. The Mohs map was marked accordingly. Amount of lidocaine used: 3.0 cc Estimated blood loss: <1.0 cc Defect size: 1.3 x 1.2 cm Number of blocks per stage: 1 Number of positive blocks: 1 ?? Tumor features identified on Mohs section: basal carcinoma ?? Depth of tumor invasion after stage: dermis Stage 2 ?? Comments: The patient returned to the procedure [...] tissue sections, stained, and evaluated by Dr. Fernandez for interpretation of deep and peripheral margins. The Mohs map was updated. Assistants: Brooklynn Zavala MA Amount of lidocaine used: 3.0 cc Estimated blood loss: 1.0 cc Defect size: 1.7 x 1.5 cm Number of blocks: 1 Number of positive blocks: 0. Tumor free margins were obtained and the Mohs procedure was considered complete. ?? Tumor features identified on Mohs section: no tumor identified ?? Depth of tumor invasion after stage: subcutaneous fat Patient tolerance of procedure: tolerated well, no immediate complications Reconstruction: Was the defect reconstructed? Yes ?? Was reconstruction performed by the same Mohs surgeon? Yes ?? Setting of reconstruction: outpatient office When was reconstruction performed? same day Type of reconstruction: linear Linear reconstruction: intermediate Antibiotics: Were antibiotics given on the day of surgery? Yes ?? When were antibiotics given? post-operative Authorizing ProviderResult TypeResult StatusCourtcuco [facility] hospital PROCEDURE ORDERABLESFinal Result * BKV QUANT PCR (12/17/2024 8:50 AM EDT)ComponentValueRef RangeTest Method Analysis TimePerformed AtPathologist SignatureBKV DNA, QUANT PCR, PLASMA NegativeNegative IU/mLTBHComment: No BK DNA detected. The linear range of the assay is 22 - 100,000,000 IU/mL. Performed at: ?? - [facility] ??[id number] Cyber Forensic Specialist: Dayne Mckenzie PhD, Phone: ??[phone] LOG10 BKV DNA,PLASMATNP.TBHSpecimen (Source)Anatomical Location / Laterality Collection Method / VolumeCollection TimeReceived Time12/17/2024 8:50 AM EDT 12/17/2024 8:52 AM EDT Narrative CLINISYNC - 12/18/2024 7:08 PM EDT Authorizing ProviderResult TypeResult StatusGeneric External Data ProviderLAB BLOOD ORDERABLESFinal ResultPerforming OrganizationAddressCity/State/ZIP Code Phone Number [facility] * (ABNORMAL) SRMCOH TESTOSTERONE FREE/TOT EQUILIB (12/17/2024 8:50 AM EDT) ComponentValueRef RangeTest MethodAnalysis TimePerformed AtPathologist WcbkszftpISMBNPIZDZYJ468867 - 916 ng/dLTBHComment: Adult male reference interval is based on a population of healthy nonobese males (BMI <30) between 19 and 39 years old. dangelo Mckeon.al. JCEM 2017,102;3479-9390. PMID: 44032138. FREE TESTOSTERONE(DIRECT)5.6(A)6.6 - 18.1 pg/mLTBHComment: Performed at: ??CB - [facility] [address], [place], [place] ??[id number] Cyber Forensic Specialist: Dayne Mckenzie PhD, Phone: ??[phone] Performed at: ?? - [facility] [address] ??[id number] Cyber Forensic Specialist: Evan Orozco MD, Phone: ??[phone] Specimen (Source)Anatomical Location / LateralityCollection Method / Volume Collection TimeReceived Time12/17/2024 8:50 AM EDT12/17/2024 8:52 AM EDT Narrative CLINISYKY - 12/25/2024 1:10 AM EDT Authorizing ProviderResult TypeResult StatusGeneric External Data Provider CLINISYNCFinal ResultPerforming OrganizationAddressCity/State/ZIP CodePhone Number [facility] * (ABNORMAL) MLR HEMOGLOBIN A1C (12/17/2024 8:50 AM EDT)ComponentValueRef Range Test MethodAnalysis TimePerformed AtPathologist SignatureGLYCOHEMOGLOBIN A1C 6.4(H)4.5 - 6.2 %TBHComment: ADA RECOMMENDED LIMIT 4.0 - 6.0 ADA THERAPEUTIC TARGET < 7.0 ACTION SUGGESTED > 7.0 ESTIMATED AVERAGE CIOSTGS954vl/dLTBHSpecimen (Source)Anatomical Location / LateralityCollection Method / VolumeCollection TimeReceived Time12/17/2024 8:50 AM EDT12/17/2024 8:52 AM EDT Narrative CLINISYKY - 12/17/2024 10:35 AM EDT Authorizing ProviderResult TypeResult StatusGeneric External Data Provider CLINISYNCFinal ResultPerforming OrganizationAddressCity/State/ZIP CodePhone Number [facility] * METRO SEX BINDING HORMONE (SHBG), TESTOSTERONE, FREE AND BIOAVAILABLE (12/17/2024 8:50 AM EDT)ComponentValueRef RangeTest MethodAnalysis Time Performed AtPathologist SignatureSEX HORM BINDING GLOB, SERUM28.219.3 - 76.4 nmol/LTBHComment: Performed at: ?? - [facility] [address] ??[id number] Cyber Forensic Specialist: Dayne Mckenzie PhD, Phone: ??[phone] Specimen (Source)Anatomical Location / LateralityCollection Method / Volume Collection TimeReceived Time12/17/2024 8:50 AM EDT12/17/2024 8:52 AM EDT Narrative CLINISYNC - 12/25/2024 1:10 AM EDT Authorizing ProviderResult TypeResult StatusGeneric External Data Provider CLINISYNCFinal ResultPerforming OrganizationAddressCity/State/ZIP CodePhone Number [facility] * (ABNORMAL) ALL LIPID PROFILE (FASTING) (12/17/2024 8:50 AM EDT)ComponentValue Ref RangeTest MethodAnalysis TimePerformed AtPathologist Signature DKGIJDHOACFGJ149(H)<=150 mg/aRNZJBHYJNQNTAWS615<=200 mg/dLTBHHDL GCOZWXUAJVD90 (L)40 - 60 mg/dLTBHComment: > or =60 mg/dl - LOW CARDIOVASCULAR RISK <40 mg/dl - HIGH CARDIOVASCULAR RISK LDL CHOLESTEROL ZURQVSMJUC42.0mg/dLTBHComment: <100 mg/dl OPTIMAL 100-129 mg/dl NEAR OR ABOVE OPTIMAL 130-159 mg/dl BORDERLINE HIGH 160-189 mg/dl HIGH >190 mg/dl VERY HIGH VLDL LHKWBIWTJAC29.4mg/dLTBHCHOL HDL RATIO2.8TBHComment: 3.3 - 4.4 ?? LOW RISK 4.4 - 7.1 ?? AVERAGE RISK 7.1 - 11.0 ??MODERATE RISK >11.0 HIGH RISK Specimen (Source)Anatomical Location / LateralityCollection Method / Volume Collection TimeReceived Time12/17/2024 8:50 AM EDT12/17/2024 8:52 AM EDT Narrative CLINISYNC - 12/17/2024 9:41 AM EDT Authorizing ProviderResult TypeResult StatusGeneric External Data Provider CLINISYNCFinal ResultPerforming OrganizationAddressty/State/ZIP CodePhone Number [facility] * (ABNORMAL) HEMOGLOBIN A1C (09/10/2024)Specimen (Source)Anatomical Location / LateralityCollection Method / VolumeCollection TimeReceived TimeBlood 09/10/2024 Narrative Authorizing ProviderResult TypeResult StatusRosa M FLOREZ BLOOD ORDERABLESFinal Result * Hm Colonoscopy (01/26/2024 3:11 PM EDT)Anatomical RegionLateralityModality Other Narrative Authorizing ProviderResult TypeResult StatusNoms Provider Unallocated MDHEALTH MAINTENANCEFinal Result * Color Fundus Photography - OU - Both Eyes (05/18/2021 12:00 PM EST)Anatomical RegionLateralityModalityHeadFundus PhotographySpecimen (Source)Anatomical Location / LateralityCollection Method / VolumeCollection TimeReceived Time 05/18/2021 12:00 PM EST Narrative 05/18/2021 12:00 PM EST PERFORMED AT [facility] LOCATION:[id number] [facility] Procedure Note CONVERSION, GENERIC - 08/31/2022 PERFORMED AT [facility] LOCATION:[id number] [facility] Authorizing ProviderResult TypeResult StatusRosa M Del Toro MDOPHTH PHOTOGRAPHY Final Result from Last 3 Months or Most Recently Relevant to Health Maintenance Insurance Care Teams Team MemberRelationshipSpecialtyStart Date Rosa M Del Toro MD [address] [facility] [place] [address] PCP - GeneralFamdly Medicine10/25/22 Rosa M Del Toro MD [address] [place] [address] PCP - [facility]04/17/23 Rosa M Platt, RN [address] [place], [place] [id number] Registered NurseP[facility]03/01/23
--- OUTSIDE RECORDS SUMMARY | 2025-02-20 08:03 | XMS_ITS | Clinical Summary ---
Author Organization [employer] s tem Address [id number] [address] [place] [address] Care Team Providers Care Planning Manager Name Role Phone Unavailable Primary Care Provider Unavailabl e Immunizations ImmunizationAdministration DatesNext DueCOVID-19, mRNA, LNP-S, PF, 100mcg/0.5mL Dose07/10/2020,06/12/2020 Social History Tobacco UseTypesPacks/DayYears UsedDateSmoking Tobacco: Never AssessedChildcare AnswerDate NewajxqvKqggkxjqbGddawcy23/12/2019EmploymentAnswerDate Recorded KorpswdlqeGdrhyvs86/12/2019Purpose - LifeAnswerDate RecordedPurpose and direction in mruwGhskamc56/11/2021ex and Gender InformationValueDate Recorded Sex Assigned at BirthNot on fileLegal QkmTdqw6711/20/2014 12:05 PM EDTGender IdentityNot on fileSexual OrientationNot on file Plan of Treatment Health MaintenanceDue DateLast DoneCommentsDepression Mqrpveldo80/11/1973Tobacco Harpuuuwn61/11/1973Adult BMI Diknbylqg82/11/1979DTaP,Tdap and Td Vaccines (1 - Tdap)12/27/1979Zoster (Shingles) Vaccine (1 of 2)2010COVID-19 Vaccine (3 - season)5007/10/2020, 06/12/2020Influenza Tgsonqt9412/16/2024 01/22/2020, 02/05/2019, 05/11/2018, Additional history existsRSV ( or age 60+ yrs) (1 - 1-dose 75+ series)12/27/2035 [employer] Devices Not on file Insurance
--- OUTSIDE RECORDS SUMMARY | 2025-02-20 08:03 | XMS_ITS | Continuity of Care Document ---
Author Organization [facility] Address [address] [place] [address] Phone [phone]
--- OUTSIDE RECORDS SUMMARY | 2025-02-20 08:03 | XMS_ITS | Encounter Summary ---
Author Organization [facility] Address [address] [facility] [place] [address] Care Team Providers Care Shoe Sprayer Name Role Phone Rosa M Gonzales MD Primary Care Provider Rosa M Platt RN Unavailable [phone] Rosa M Gonzales MD Unavailable [phone] Rosa M Gonzales MD Unavailable [phone] Rosa M Gonzales MD Unavailable [phone] Encounter Details DateTypeDepartmentCare Team (Latest Contact Info)Oezqnbtchgd95/22/2024Clinisync Result Encounter [facility] External Department Unsolicited Provider, Generic External Data Social History Tobacco UseTypesPacks/DayYears UsedDateSmoking Tobacco: FormerCigarettesQuit: 04/17/2007Smokeless Tobacco: NeverAlcohol UseStandard Drinks/WeekCommentsNot Currently1 (1 standard drink = 0.6 oz pure alcohol)Caffeine intake : 1-2 cups per dayHumiliation, Afraid, Rape, and Kick questionnaireAnswerDate Recorded Within the last year, have you been afraid of your partner or ex-partner?No 11/01/2022Within the last year, have you been humiliated or emotionally abused in other ways by your partner or ex-partner?No11/01/2022Within the last year, have you been kicked, hit, slapped, or otherwise physically hurt by your partner or ex-partner?No11/01/2022Within the last year, have you been raped or forced to have any kind of sexual activity by your partner or ex-partner?No11/01/2022 Social Connection and Isolation PanelAnswerDate RecordedIn a typical week, how many times do you talk on the phone with family, friends, or neighbors?More than three times a week11/01/2022How often do you get together with friends or relatives?Three times a week11/01/2022How often do you attend moravian or gnosticist services?1 to 4 times per year11/01/2022o you belong to any clubs or organizations such as moravian groups, unions, fraHydroNovation or athletic groups, or school groups?Yes11/01/2022How often do you attend meetings of the clubs or organizations you belong to?1 to 4 times per year11/01/2022re you , , , , never , or living with a partner? 11/01/2022UDIT-CAnswerDate RecordedQ1: How often do you have a [...] medical care, and heating?Not hard at all 11/01/2022HQ-2AnswerDate RecordedPatient Health Questionnaire-2 Score0 10/03/2024[facility] [place] [facility] - Occupational Stress QuestionnaireAnswerDate [...] ValueDate RecordedSex Assigned at BirthNot on fileLegal GfdNnrh8806/29/2022 7:40 PM EDTGender VmyiypomLdzb17/15/2023 7:40 PM EDTSexual OrientationNot on file documented as of this encounter Functional Status * Over the past 2 weeks, how often have you been bothered by any of the following problems?QuestionAnswerDate of AssessmentAuthorLittle interest or pleasure in doing thingsNot at all10/03/2024 11:32 AM Adrianne Peoples MA Feeling down, depressed, or hopelessNot at all10/03/2024 11:32 AM Adrianne Peoples MAPatient Health Questionnaire-2 Kvnpa426 11:32 AM Adrianne Ruiz MA * QuestionAnswerDate of AssessmentAuthorTrouble falling or staying asleep, or sleeping too muchNot at all10/03/2024 11:32 AM Adrianne Peoples MAFeeling tired or having little energyNot at all10/03/2024 11:32 AM Adrianne Peoples MAPoor appetite or overeatingNot at all10/03/2024 11:32 AM Adrianne Ruiz MAFeeling bad about yourself - or that you are a failure or have let yourself or your family downNot at all10/03/2024 11:32 AM REINAT Adrianne To MATrouble concentrating on things, such as reading the newspaper or watching televisionNot at all10/03/2024 11:32 AM Adrianne Peoples, MAMoving or speaking so slowly that other people could have noticed? Or the opposite - being so fidgety or restless that you have been moving around a lot more than usual.Not at all10/03/2024 11:32 AM Adrianne Peoples MAThoughts that you would be better off or hurting yourself in some wayNot at all10/03/2024 11:32 AM Adrianne Peoples MAPatient Health Questionnaire-9 Yknnw432 11:32 AM Adrianne Peoples MA documented as of this encounter Plan of Treatment DateTypeDepartmentCare Team (Latest Contact Info)Gimqxkfmilv91/07/2026 1:15 PM EDTOffice Visit [facility] [address] [place] [address] Kimberlyn Fishman MD [address] [place] [address] documented as of this encounter Procedures Procedure NamePriorityDate/TimeAssociated DiagnosisCommentsCA ECHO DOPPLER YLHVFQGW05/22/2024 11:34 AM EDT documented in this encounter Results * CA ECHO DOPPLER COMPLETE (12/07/2023 11:34 AM EDT)Anatomical RegionLaterality ModalityOtherSpecimen (Source)Anatomical Location / LateralityCollection Method / VolumeCollection TimeReceived Time12/07/2023 11:34 AM EDT Narrative 12/07/2023 11:35 AM EDT [facility] ?[address] ? [place] [address] ? Cardiology Report ? Signed ? Patient: DUKE,VISHAL D ?MR#: [id number] ?? : 1960 ?Acct:[id number] ?? Age/Sex: 62 / M ?ADM Date: 08/22/24 ?? Loc: CARD ? Attending Dr: Federico Brown M.D. ? Ordering Physician: Federico Brown M.D. ?? Date of Service: 12/07/23 ?? Procedure(s): CA echo doppler complete ?? Accession Number(s): [id number] ? cc: Federico Brown M.D.; ROSA M GONZALES ? Patient Name: ? VISHAL DUKE ? MR#: [id number] ? : 1960 ? Exam Date: 12/07/2023 ?? Ordering Doctor: DR FEDERICO BROWN M.D. ? ECHOCARDIOGRAM REPORT ? PROCEDURE: ? CA ECHO DOPPLER COMPLETE ? INDICATIONS: ? Cardiomyopathy, CABGx3, cardiac stents, polycystic kidney and ?? liver - kidney transplants, pacemaker ? COMPARISON: ? None. ? DESCRIPTION: ? COMPLETE ECHOCARDIOGRAM Real-time transthoracic ?? echocardiography with 2D, M-mode, spectral and color flow Doppler performed. ? QUALITY: ? Technical quality was good. ? LEFT VENTRICLE: ? Normal chamber size. Proximal septal hypertrophy (sigmoid ?? septum). ? LV EF: ? Global left ventricular systolic function is lower normal limits; ?? visually estimated ejection fraction is 50%. ??The distal half of the septum is ?? hypokinetic. ?? DIASTOLIC: ?Unable to assess diastolic function ? ATRIAL SEPTUM: ? Inadequately seen. ?? LEFT ATRIUM: ? Normal chamber size. ?? RIGHT ATRIUM: ? Normal chamber size. ?? RIGHT VENTRICLE: ? Normal chamber size. ??Normal systolic function. ?? Pacer ?? wire present. ?? TRICUSPID VALVE: ? Normal mobility and thickness. No stenosis with trivial ?? regurgitation. ??Unable to assess right-sided pressures due to lack of ?? measurable tricuspid regurgitation. ? MITRAL VALVE: ? Normal mobility and thickness. ?? No evidence of mitral valve ?? stenosis. ??There is no mitral annular calcification. Mild mitral ?? regurgitation. ? AORTIC VALVE: ? Normal trileaflet appearance. No visible sclerosis. ??Normal ?? leaflet mobility. ??No evidence of aortic valve stenosis. Mild aortic ?? regurgitation. ? AORTIC ROOT: ? Normal diameter and appearance. ? PULMONIC VALVE: ? Normal thickness and mobility. No stenosis. Trivial ?? regurgitation. ? PERICARDIUM: ? No evidence of pericardial effusion. ? IVC: ? Collapses with inspirations. IVC is normal in size. ? CONCLUSION: ? 1. Global left ventricular systolic function is lower normal limits; visually ?? estimated ejection fraction is 50% ?? 2. Normal right ventricular size and systolic function ?? 3. Mild mitral regurgitation ?? 4. Mild aortic valve regurgitation ? Adult Echocardiography Procedure Report ?? Left Ventricle ?? LVEDD (3.7 - 5.6 cm): ? 5.06 cm ?? LVESD (2.2 - 4.0 cm): ? 3.59 cm ?? LVIVS thickness (0.6 - 1.2 cm): ? 1.27 cm ?? LVPW thickness (0.5 - 1.0 cm): ? 1.09 cm ?? e': ? 0.05 m/s ?? E - e': ? 6.16 ?? LVOT Max Gradient: ? 3.38 mm[Hg] ?? LVOT Area (cm2): ? 0.92 m/s ?? Peak Velocity (LVOT): ? 0.92 m/s ?? Mean Velocity (LVOT): ? 0.66 m/s ?? LVOT Diameter ? 2.03 cm ?? Left Atrium ?? LA Volume Index (2D A2C): ? 22.70 ml/m2 ?? Left Atrium Systolic Dimension: ? 4.50 cm ?? Mitral Valve ?? MV E to A Ratio: ? 0.63 ?? Mitral Valve A-Wave Peak Velocity: ? 0.52 m/s ?? Mitral Valve E-Wave Peak Velocity: ? 0.33 m/s ?? Right Ventricle ?? Aorta ?? AO Root Diam: ? 4.01 cm ?? Aortic Valve ?? AoV Area (Peak Francisco): ? 2.62 cm2, 2.62 cm2 ?? AoV Area (VTI): ? 2.25 cm2, 2.25 cm2 ?? Peak Velocity(Antegrade Flow): ? 1.13 m/s ?? Peak Gradient(Antegrade Flow): ? 5.12 mm[Hg] ?? Mean Velocity(Antegrade Flow): ? 0.76 m/s ?? Mean Gradient(Antegrade Flow): ? 2.64 mm[Hg] ?? Velocity Time Integral: ? 25.90 cm ?? Tricuspid Valve ?? Pulmonic Valve ?? Mean Gradient: ? 1.50 mm[Hg] ?? Mean Velocity: ? 0.57 m/s ?? Peak Velocity: ? 0.84 m/s, 0.75 m/s ?? Peak Gradient: ? 2.28 mm[Hg], 2.83 mm[Hg] ?? Right Atrium ?? Right Atrium Systolic Pressure: ? 32.29 ml, 32.29 ml ? Dictated by: Federico Brown M.D. on 12/07/2023 at 11:30 ? Approved by: Federico Brown M.D. on 12/07/2023 at 11:34 ? Dictated By: ?Federico Brown M.D. ? Signed By: ?12/07/23 1135 ? DD/ 1134 ? TD/TT: ? Anode Builder: Procedure Note Radiology, Radiologist, - 12/07/2023 [place] [address] Cardiology Report Signed Patient: VISHAL DUKE DMR#: [id number] : 1960cct:[id number] Age/Sex: 62 / MADM Date: 12/07/23 Loc: CARD Attending Dr: Federico Brown M.D. Ordering Physician: Federico Brown M.D. Date of Service: 12/07/23 Procedure(s): CA echo doppler complete Accession Number(s): [id number] cc: Federico Brown M.D.; ROSA M GONZALES Patient Name: VISHAL DUKE MR#: [id number] : 1960 Exam Date: 12/07/2023 Ordering Doctor: [...] M.D. Signed By:12/07/23 1135 DD/ 1134 TD/TT: Anode Builder: Authorizing ProviderResult TypeResult StatusGeneric External Data Provider CLINISYNC IMAGINGFinal Result documented in this encounter Visit Diagnoses Not on filedocumented in this encounter Additional Health Concerns AssessmentNoted TimePHQ-9 Depression Total Score: 9:00 AM EDT documented as of this encounter Care Teams Team MemberRelationshipSpecialtyStart DateEnd Rosa M Gonzales MD [address] [facility] [place] [address] PCP - GeneralFamily Medicine10/25/22 Rosa M Gonzales MD [address] [facility] [place] [address] PCP - O [facility]/ Rosa M Gonzales MD [address] [facility] [place] [address] PCP - O [facility] Rosa M Gonzales MD [address] [facility] [place] [address] [facility] Rosa M Platt, TATO [address] [facility] [place] [address] Registered NurseFamily Qpixgmxj31/15/23documented as of this encounter
--- OUTSIDE RECORDS SUMMARY | 2025-02-20 08:03 | XMS_ITS | Clinical Summary ---
Author Organization [facility] Address [address] [place] [address] Phone Care Team Providers Care Endodontic Assistant Name Role Phone Rosa M Del Toro MD Primary Care Provider [phone] Social History Tobacco UseTypesPacks/DayYears UsedDateSmoking Tobacco: Never AssessedSex and Gender InformationValueDate RecordedSex Assigned at BirthNot on fileLegal Sex Male03/11/2022 8:09 PM ESTGender IdentityNot on fileSexual OrientationNot on file Last Filed Vital Signs Vital SignReadingTime TakenCommentsBlood Vgduyfte098/7001 5:40 PM EST Jxhoz166004/23/2021 3:22 PM ESTTemperature--Respiratory Rate--Oxygen Saturation-- Inhaled Oxygen Concentration--Kpelkb03.2 kg (212 lb)04/23/2021 3:22 PM ESTHeight 180.3 cm (5' 11 )04/23/2021 3:22 PM ESTBody Mass Index29.57004/23/2021 3:22 PM EST Plan of Treatment Not on file Care Teams Team MemberRelationshipSpecialtyStart DateEnd Date Rosa M Del Toro MD [address] [place] [id number] PCP - General04/23/21
--- OUTSIDE RECORDS SUMMARY | 2025-02-20 08:03 | XMS_ITS ---
Author Organization [facility] ([facility]) Address [address] [place] [address] Care Team Providers Care Adjunct Communications Faculty Member Name Role Phone Unavailable Unavailable Unavailable Allergies, Adverse Reactions, Alerts This patient has no known allergies or adverse reactions. Problems This patient has no known problems.
--- OUTSIDE RECORDS SUMMARY | 2025-02-20 08:08 | XMS_ITS | CCD ---
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 Primary Care Physician Rosa M Gonzales MD Unavailable [phone] Reji BROWER Attending Unavailable Sarmini, Schmidt Talal Referring Unavaila ble Sarmini, Schmidt Talal Admitting Unavaila ble Sarmini, Schmidt Talal Attending Unavaila ble Sarmini, Schmidt Talal Attending Unavaila Reji Belle Attending Unavailable Rosa M Gonzales MD Unavailable Rosa M Platt RN Unavailable Rosa M Gonzales MD Unavailable Rosa M Coyne MD Primary Care Pr ovider Patricia Jolley APRN Attending Provider MACRINA MOON Attending Unavailable MACRINA MOON Attending Unavailable ELTASUDHA, EHAB Attending Unavailable TEAGAN VILLANUEVA Referring Unavailable ELTAHAWPaty, FEDERICO Attending Unavailable TEAGAN VILLANUEVA Referring Unavailable ELTAHAWY, EHAB Attending Unavailable EFREN CENTENO Attending Unavailable ALICIA FISHMAN Attending Unavailable ROSA M GONZALES Attending Unavailable ALICIA FISHMAN Attending Unavailable ROSA M GONZALES Attending Unavailable AVELINA RODRIGES Attending Unavailable NICKI VELEZ Attending Unavailable NICKI VELEZ Attending Unavailable ROSA M GONZALES Attending Unavailable ALICIA FISHMAN Attending Unavailable AVELINA RODRIGES Attending Unavailable Rosa M Gonzales MD Unavailable Rosa M Gonzales MD Unavailable [phone] Allergies Allergy ClassificationReported Allergen(s)Allergy TypeDate of OnsetReaction(s) Facility (1 source)93253,00; Translations: [34759,00]Propensity to adverse reactions (disorder)44-09-3579Hpv [facility] Repository (2 sources)Cephalexin; Translations: [Keflex[facility] Medications Current Medications MedicationDrug Class(es)DatesSig (Normalized)Sig (Original)acetaminophen 325 mg / HYDROcodone bitartrate 5 mg oral tablet (1 source)Opioid AgonistStart: 01-30-2024 End: 03-45-7674xjee 1 tablet by mouth every six hours for painHYDROcodone- acetaminophen ([place]) 5-325 MG tablet Indications: Herpes zoster without complication Take 1 tablet by mouth every 6 (six) hours if needed for severe pain for up to 3 days 12 tablet 01/30/2024 02/02/2024 [id number] 200 actuat albuterol 0.09 mg/actuat metered dose inhaler (20 sources)beta2-Adrenergic AgonistStart: 93-73-6075Bmmwzujon Sulfate 90 mcg/actuation HFA aerosol inhaler Active INHALATION January 06, 2025 12:00am Complies with drug therapyStart: 12-03-2024 End: 72-29-3763oglq 2 puff(s) by inhalation every four hoursalbuterol HFA 90 mcg/act inhaler Indications: Simple chronic bronchitis (HCC) Inhale 2 puffs every 4 (four) hours if needed for shortness of breath 18 g 12/03/2024 12/03/2025 ActiveStart: 10-24-2022 End: 70-79-1926nyzx 2 puff(s) by inhalation every four hoursalbuterol HFA 90 mcg/act inhaler Indications: Simple chronic bronchitis (HCC) Inhale 2 puffs every 4 (four) hours if needed for shortness of breath 18 g 06/27/2023 Active amoxicillin 500 mg oral capsule (20 sources)Penicillin-class AntibacterialStart: 64-90-8549nejx 4 capsules by mouth every houramoxicillin (Amoxil) 500 MG capsule TAKE 4 CAPSULES BY MOUTH ONE HOUR PRIOR TO DENTAL APPOINTMENT. 07/16/2024 Activeaspirin 81 mg oral tablet (20 sources)Platelet Aggregation Inhibitor, Nonsteroidal Anti-inflammatory Drug Start: 79-61-9130iavn 1 tablet by mouth once dailyAspirin Low Dose 81 MG Oral Tablet Chewable CHEW ONE TABLET BY MOUTH EVERY DAY Quantity: 30 Refills: 0 Ordered: 19-Aug-2020 DO Start : 19-Aug-2020 ActiveStart: 85-20-1292ttlh 1 capsule by mouth once dailyAspirin 81 mg Capsule Active 81 MG PO Daily December 08, 2020 12:00am Complies with drug therapytake 1 tablet by mouth once dailyaspirin 81 MG EC tablet Take 81 mg by mouth Daily Activeatorvastatin 80 mg oral tablet (20 sources)HMG-CoA Reductase InhibitorStart: 46-49-9063gfct 1 tablet by mouth once dailyatorvastatin (Lipitor) 80 MG tablet Take 80 mg by mouth Daily 11/21/2022 Activeclopidogrel 75 mg oral tablet (20 sources)P2Y12 Platelet InhibitorStart: 21-33-4265yfwy 1 tablet by mouth once dailyclopidogrel 75 mg Tab 75 mg = 1 tab(s), Oral, Daily, Blood Thinner Start Date: 01/17/22 Status: Orderedclotrimazole 10 mg oral lozenge (4 sources)Azole AntifungalStart: 05-01-7533bpyr 1 mg by mouth once daily clotrimazole 10 mg Jennifer mg lozenge(s), Oral, 5x/Day, Refills(s) 0, Infection or prophylaxis for antibiotics Start Date: 01/01/20 Status: Ordereddapagliflozin 10 mg oral tablet (3 sources)Sodium-Glucose Cotransporter 2 InhibitorStart: 93-29-4306hlsb 1 tablet by mouth once dailyFarxiga 10 mg oral tablet 10 mg = 1 tab(s), Oral, Daily Start Date: 01/17/22 Status: Orderedtake 1 tablet by mouth once daily in the morningFarxiga 10 MG Oral Tablet TAKE 1 TABLET BY MOUTH EVERY MORNING Quantity: 0 Refills: 0 Ordered: 23-Apr-2021 DO Activeempagliflozin 10 mg oral tablet (20 sources)Sodium-Glucose Cotransporter 2 InhibitorStart: 07-05-2022 End: 47-67-7172acrd 10 mg by mouth in the morningempagliflozin (Jardiance) 10 MG Take 10 mg by mouth in the morning. 07/05/2022 Activeesomeprazole 40 mg delayed release oral capsule (20 sources)Proton Pump InhibitorStart: 95-33-5622amnt 1 capsule by mouth once dailyEsomeprazole Magnesium 40 mg capsule,delayed release(DR/EC) Active 40 MG PO Daily January 06, 2025 12:00am Complies with drug therapyfluocinonide 0.5 mg/ml topical solution (1 source)CorticosteroidStart: 02-69-9719uetritgvjspe (Lidex) 0.05 % external solution Indications: Other seborrheic dermatitis Apply to affected areas on the scalp twice a day for flares, set aside when clear. 30 days 60 mL 11 02/06/2023 Zzbqqq76 hr isosorbide mononitrate 60 mg extended release oral tablet (20 sources)Nitrate VasodilatorStart: 26-73-3873upwe 1 tablet by mouth every twenty-four hoursIsosorbide Mononitrate 60 mg tablet extended release 24 hr Active MG PO January 06, 2025 12:00am Complies with drug therapyStart: 70-93-1451wuzo 1 tablet by mouth once daily in the morningisosorbide mononitrate 60 mg ER Tab 60 mg = 1 tab(s), Oral, qAM, Refills(s) 0, High blood pressure S tart Date: 01/11/24 Status: OrderedStart: 97-62-4149fjuckiotip mononitrate ER (Imdur) 60 MG 24 hr tablet 07/19/2023 ActiveStart: 04-19-3554jaft 1 tablet by mouth every twenty-four hours in the morningisosorbide mononitrate ER (Imdur) 60 MG 24 hr tablet TAKE 1 TABLET BY MOUTH IN THE MORNING do not crush or chew 07/19/2023 ActiveStart: 94-94-3759mjtw 1 tablet by mouth every twenty-four hours in the morningisosorbide mononitrate ER (Imdur) 30 MG 24 hr tablet Take 1 tablet by mouth in the morning. 0 09/21/2022 Activeketoconazole 20 mg/ml topical cream (5 sources)Azole AntifungalStart: 01-26-2024 End: 96-58-6408uuaofrfyokig (NIZOral) 2 % cream Indications: Tinea corporis Apply topically Daily for 14 days Apply thin layer to affected area daily 60 g 01/26/2024 02/09/2024 Activelisinopril 5 mg oral tablet (20 sources)Angiotensin Converting Enzyme InhibitorStart: 12-79-7685ypqg 1 tablet by mouth once dailyLisinopril 5 mg tablet Active 5 MG PO Daily December 08, 2020 12:00am Complies with drug therapymagnesium amino acid chelate (2 sources)Start: 51-36-7883ccpwondak amino acids chelate Oral, Refills(s) 0 Start Date: 01/01/20 Status: Orderedmagnesium oxide 400 mg oral tablet (20 sources)Start: 05-20-2024 End: 84-77-5479ctua 1 tablet by mouth in the morning, then take 1 tablet by mouth in the evening, then take 1 tablet by mouth at bedtimemagnesium oxide (Mag-Ox) 400 (240 Mg) MG tablet Indications: History of kidney transplant (HCC) TAKE 1 TABLET BY MOUTH IN THE MORNING then TAKE 1 TABLET BY MOUTH IN THE EVENING then TAKE 1 TABLET BY MOUTH BEFORE bedtime 270 tablet 1 12/04/2024 ActiveStart: 12-08-2020 End: 82-58-7196xpvs 1 tablet by mouth three times daily at bedtimemagnesium oxide (Mag-Ox) 400 (240 Mg) MG tablet Indications: History of kidney transplant (CMS/HCC)TAKE 1 TABLET BY MOUTH THREE TIMES DAILY (IN THE MORNING, IN THE EVENING, and BEFORE bedtime) 270 tablet 1 12/08/2023 ActiveStart: 91-51-8585nece 1 tablet by mouth three times dailyMagnesium Oxide 400 (241.3 Mg) MG Oral Tablet TAKE 1 TABLET BY MOUTH THREE TIMES DAILY Quantity: 90Refills: 0 Ordered: 03-Mar-2021 DO Start : 01-Jul-2020 Apxxos43 hr metoprolol succinate 100 mg extended release oral tablet (20 sources)beta-Adrenergic BlockerStart: 35-38-1673ujzompsnqb succinate XL (Toprol-XL) 100 MG 24 hr tablet 09/10/2024 ActiveStart: 91-07-6945zqps 1 tablet by mouth once dailymetoprolol succinate XL (Toprol-XL) 200 MG 24 hr tablet Take 100 mg by mouth Daily 11/21/2022 ActiveStart: 91-13-4671blqx 1 tablet by mouth every twenty-four hours in the morningmetoprolol succinate XL (Toprol-XL) 200 MG 24 hr tablet Take 200 mg by mouth in the morning. 0 11/21/2022 ActiveStart: 94-89-1126ienp 1 tablet by mouth every twenty-four hoursMetoprolol Succinate ER 200 MG Oral Tablet Extended Release 24 Hour Quantity: 30 Refills: 0 Ordered: 04-Apr-2021 DO Start : 04-Jan-2021 ActiveStart: 44-60-6005yckw 1 tablet by mouth once dailyMetoprolol Succinate (Toprol Xl) 200 mg tablet extended release 24 hr Active 200 MG PO Daily December 12, 2020 12:00am Complies with drug therapy Start: 12-08-2020 End: 51-45-7087Eoftjvjwgc Tartrate 50 mg tablet Discontinued 75 MG PO Twice daily December 08, 2020 12:00am 2020 4:55pmStart: 22-85-7345vwjq 1 mg by mouth twice dailyMetoprolol tartrate 50 mg Tab mg tab(s), Oral, BID, Refills(s) 0, High blood pressure Start Date: 01/01/20 Status: Orderedmupirocin 0.02 mg/mg topical ointment (4 sources)RNA Synthetase Inhibitor AntibacterialStart: 59-56-1252nzluenooj (Bactroban) 2 % ointment Indications: Basal cell carcinoma of skin of scalp and neck Apply to surgical incision on the scalp once daily with wound care x 10 days 22 g 01/03/2025 Activemycophenolic acid 180 mg delayed release oral tablet (20 sources)Antimetabolite ImmunosuppressantStart: 03-21-2024 End: 30-76-4246ejaa 1 tablet by mouth in the morningmycophenolate (Myfortic) 180 MG EC tablet Indications: Aftercare following organ transplant Take 1 tablet (180 mg) by mouth in the morning and 1 tablet (180 mg) before bedtime. 180 tablet 03/21/2024 03/21/2025 ActiveStart: 07-25-2023 End: 53-66-8120kdqc 3 tablets by mouth twice daily at bedtimemycophenolate (Myfortic) 180 MG EC tablet TAKE 3 TABLETS BY MOUTH TWICE DAILY IN THE MORNING AT BEDTIME 07/25/2023 03/19/2024 Discontinued (Reorder)Start: 12-08-2020 End: 38-77-9368iigl 3 tablets by mouth in the morningmycophenolate (Myfortic) 180 MG EC tablet Indications: History of kidney transplant (CMS/HCC) Take 3 tablets (540 mg) by mouth in the morning and 3 tablets (540 mg) before bedtime. 540 tablet 1 12/14/2022 06/12/2023 ActiveStart: 31-08-6891bfxk 1 mg by mouth twice dailymycophenolic acid 180 mg oral enteric coated tablet mg tab(s), Oral, BID, Refills(s) 0 Start Date: 01/01/20 Status: Orderednitroglycerin 0.4 mg sublingual tablet (20 sources)Nitrate VasodilatorStart: 10-26-2020 End: 08-05-3336ggiakkymspryh (Nitrostat) 0.4 MG SL tablet Indications: Coronary artery disease involving upper [place] coronary artery of upper [place] heart with unstable angina pectoris (HCC) Place 1 tablet (0.4 mg) under the tongue every 5 (five) minutes if needed for chest pain. 90 tablet 12 11/08/2022 Activeprasugrel 10 mg oral tablet (2 sources)P2Y12 Platelet InhibitorStart: 08-70-9312oahc 1 tablet by mouth once dailyEffient 10 mg Tab 10 mg = 1 tab(s), Oral, Daily, # 30 tab(s), Refills(s) 0 Start Date: 01/01/20 Status: OrderedpredniSONE 5 mg oral tablet (5 sources)Start: 11-06-2020 End: 05-16-9709lqiv 1 tablet by mouth once dailypredniSONE (Deltasone) 5 MG tablet Indications: Kidney transplant status (CMS/HCC) TAKE 1 TABLET BYMOUTH DAILY 90 tablet 0 03/14/2023 Nyesqr96 hr ranolazine 500 mg extended release oral tablet (20 sources)Anti-anginalStart: 44-30-8487beui 1 tablet by mouth twice daily Ranolazine 500 mg tablet extended release 12 hr Active 500 MG PO Twice daily January 06, 2025 12:00am Complies with drug therapyStart: 82-18-9774otzq 1 tablet by mouth twice dailyranolazine 500 mg oral ER Tab 500 mg = 1 tab(s), Oral, BID, Infection or prophylaxis for antibiotics Start Date: 01/17/22 Status: Orderedtake 1 tablet by mouth every twelve hours in the morningranolazine (Ranexa) 500 MG 12 hr tablet Take 500 mg by mouth in the morning and 500 mg before bedtime. Do not crush, chew, or split. . Activesodium bicarbonate 325 mg oral tablet (2 sources)Start: 12-74-6889lpds 1 tablet by mouth four times daily as needed sodium bicarbonate 325 mg Tab = 1 tab(s), Oral, QID, PRN for indigestion, # 30 tab(s), Refills(s) 0Start Date: 01/01/20 Status: Orderedsucralfate 1000 mg oral tablet (2 sources)Aluminum ComplexStart: 60-79-0529fksj 1 tablet by mouth three times dailysucralfate 1 g Tab 1 gm = 1 tab(s), Oral, TID Start Date: 01/17/22 Status: OrderedBactrim (2 sources)Dihydrofolate Reductase Inhibitor Antibacterial, Sulfonamide AntimicrobialStart: 90-57-1923Iknlcli Oral, q12hr, Refill(s) 0 Start Date: 01/01/20 Status: Orderedtacrolimus 0.5 mg oral capsule (20 sources)Calcineurin Inhibitor ImmunosuppressantStart: 05-20-2024 End: 27-62-3141hbol 1 capsule by mouth in the morningtacrolimus (Prograf) 0.5 MG capsule Indications: History of kidney transplant ([facility]) Take 1 capsule (0.5 mg) by mouth in the morning and 1 capsule (0.5 mg) before bedtime. 180 capsule 05/20/2024 05/20/2025 ActiveStart: 79-75-0163jpwf 1 capsule by mouth once daily tacrolimus (Prograf) 1 MG capsule Take 1 mg by mouth Daily 07/19/2023 Active Start: 11-08-2022 End: 11-89-2075ydvd 1 capsule by mouth in the morningtacrolimus (Prograf) 0.5 MG capsule Take 0.5 mg by mouth in the morning and 0.5 mg before bedtime. 0 07/19/2023 ActiveStart: 67-30-3125gmzzsyjsud 0.5 mg oral capsule 1 mg = 2 cap(s), Refills(s) 0 Start Date: 03/04/24 Status: OrderedStart: 03-10-4796Ziynsibift 1 MG Oral Capsule TAKE DIRECTED. Quantity: 0 Refills: 0 Ordered: 04-Apr-2021 DO Start: 01-Jul-2020 ActiveStart: 97-54-7055nsyoeowsdz 1 mg, Refills(s) 0, Other (see comment) Start Date: 01/01/20 Status: OrderedStart: 33-59-4221nnfkekewfo 1 mg, Refills(s) 0 Start Date: 01/01/20 Status: OrderedvalACYclovir 1000 mg oral tablet (3 sources)Herpesvirus Nucleoside Analog DNA Polymerase Inhibitor, Herpes Simplex Virus Nucleoside Analog DNA Polymerase Inhibitor, Herpes Zoster Virus Nucleoside Analog DNA Polymerase InhibitorStart: 01-29-2024 End: 11-82-6727hrwg 1 tablet by mouth in the morning, then take 1 tablet by mouth in the evening, then take 1 tablet by mouth at bedtimevalACYclovir (Valtrex) 1 g tablet Indications: Herpes zoster with complication Take 1 tablet (1,000mg) by mouth in the morning and 1 tablet (1,000 mg) in the evening and 1 tablet (1,000 mg) before bedtime. Do all this for 7 days. 21 tablet 01/29/2024 02/05/2024 ActivevalGANciclovir 450 mg oral tablet (2 sources)Start: 60-59-8705vaqd 1 mg by mouth once dailyvalganciclovir 450 mg oral tablet mg tab(s), Oral, Daily, Refills(s) 0 Start Date: 01/01/20 Status: O rdered Completed/Discontinued Medications MedicationDrug Class(es)DatesSig (Normalized)Sig (Original)clindamycin 300 mg oral capsule (1 source)Lincosamide AntibacterialStart: 12-12-2020 End: 75-41-2804fwst 2 capsules by mouth every eight hoursClindamycin Hcl 300 mg Capsule Discontinued 600 MG PO Every 8 hours 18 3 December 12, 2020 12:00am S zeketedenise 2024 12:32pmfamotidine 40 mg oral tablet (6 sources)Histamine-2 Receptor AntagonistStart: 02-15-2024 End: 30-49-8563zyez 1 tablet by mouth at bedtimefamotidine (Pepcid) 40 MG tablet Take 40 mg by mouth at bedtime 02/15/2024 03/21/2024 Discontinued (Therapy completed)Start: 40-29-7495fxao 1 tablet by mouth once daily at bedtime famotidine 40 mg Tab 40 mg = 1 tab(s), Oral, Once a day (at bedtime), # 90 tab(s), Refills(s) 0, Pharmacy: [id number], 177.8, cm, 12/25/23 9:23:00 EDT, Height/Length Dosing, 94.3, kg,12/25/23 9:23:00 EDT, Weight Dosing Start Date: 12/25/23 Status: Orderedpravastatin sodium 40 mg oral tablet (2 sources)HMG-CoA Reductase InhibitorStart: 01-03-2020 End: 73-92-3860szkk 1 tablet by mouth once dailyPravastatin 40 mg tablet Discontinued 40 MG PO Daily December 08, 2020 12:00am December 12, 2020 4:55pm Problems Active Problems Problem ClassificationProblemDateDocumented DateEpisodic/ChronicAcute and unspecified renal failure (20 sources)Renal failure syndrome; Translations: [Unspecified kidney failure] Onset: 326091-72-8821SashckcYpfng myocardial infarction (20 sources)Myocardial infarction; Translations: [Acute non-ST segment elevation myocardial infarction]Onset: 355265-95-1066KqpqqadUvgqfak arrest and ventricular fibrillation (20 sources)Ventricular fibrillation; Translations: [Cardiac arrest]Onset: 032552-48-1656TpdbiccOmihexc on above:Problem List clean-up per request of Phys. EHR CmteCardiac dysrhythmias (20 sources)Ventricular tachycardia; Translations: [Ventricular tachycardia] Onset: 591377-88-0036VohlhasSziedgfn (20 sources)Age-related nuclear cataract of left eye; Translations: [Age-related nuclear cataract, left eye]Onset: 152134-55-3811NvkkvmvKvtghyq kidney disease (20 sources)Kidney transplant status; Translations: [Chronic kidney disease stage 3]Onset: 49-95-5571OkxqsaaPmezutj obstructive pulmonary disease and bronchiectasis (20 sources)Chronic obstructive lung disease; Translations: [Chronic obstructive pulmonary disease, unspecified]Onset: 138981-44-4690XpwbyzzXbzjixccadrr of device; implant or graft (1 source)Arteriosclerosis of coronary artery bypass graft; Translations: [Atherosclerosis of coronary arterybypass graft(s) without angina pectoris] Onset: 65-95-5519IuwugrdEwbvfytsxl disorders (5 sources)Automatic implantable cardiac defibrillator in situ; Translations: [Automatic implantable cardiac defibrillator in situ]Onset: 73-11-2513Qpcmgqf Congestive heart failure; nonhypertensive (20 sources)Chronic systolic heart failure; Translations: [Chronic systolic (congestive) heart failure]Onset: 985671-76-7176TacrcgbZinnueht atherosclerosis and other heart disease (20 sources)Coronary atherosclerosis; Translations: [Coronary atherosclerosis of upper [place] coronary artery]Onset: 95-51-1515YgajulgZwdqjuu on above:Problem List clean-up per request of Phys. EHR CmteDeficiency and other anemia (20 sources)Increased hemoglobin; Translations: [Other hemoglobinopathies]Onset: 373029-73-4772GlmtggyIyuwtxjr mellitus with complications (4 sources)Cataract due to diabetes mellitus type 2; Translations: [Type 2 diabetes mellitus with diabetic cataract]48-50-9481MnetwvvFgbtnfij mellitus without complication (4 sources)Type 2 diabetes mellitus without complication; Translations: [Type 2 diabetes mellitus without complications]69-54-7484LnwcwriHudviqehx of lipid metabolism (20 sources)Hyperlipidemia; Translations: [Other and unspecified hyperlipidemia] Onset: 288691-89-5113KintnxeDwayttwgyq disorders (20 sources)Gastroesophageal reflux disease; Translations: [Gastro-esophageal reflux disease without esophagitis]Onset: 514439-42-7770KlkkrriWgdwzhzsy hypertension (20 sources)Hypertensive disorder; Translations: [Essential hypertension]Onset: 215801-69-4512KiteiyxBuopabpjpcdxj congenital anomalies (20 sources)Autosomal dominant polycystic kidney disease; Translations: [Polycystic kidney, adult type]Onset: 220696-58-5103WkouabkKfzazukwfdpmt congenital anomalies (2 sources)H/O: congenital anomaly; Translations: [Personal history of other specified (corrected) congenital malformations of genitourinary system]Onset: 48-70-9978PxecejudHdbg and other crystal arthropathies (20 sources)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; Translations: [Chronic gout due to renal impairment, multiple sites, without tophus (tophi)]Onset: 263632-25-7508XffkqqwKkwmossoktc of prostate (20 sources)Benign prostatic hypertrophy with outflow obstruction; Translations: [Benign prostatic hyperplasia with lower urinary tract symptoms]Onset: 80-34-7146XqqdqkqFqybzcrc disorders (20 sources)Immunosuppression; Translations: [Immunodeficiency, unspecified] Onset: 393243-94-0287MqsuxdqIcmjdciktlxyk and screening for infectious disease (2 sources)Patient encounter status; Translations: [Encounter for immunization] 30-83-7590YefnrlitRebhjzr (2 sources)Tinea corporis; Translations: [Tinea corporis]40-14-7533Vizrspxb Neoplasms of unspecified nature or uncertain behavior (5 sources)Neoplastic disease; Translations: [Neoplasm of unspecified behavior of bone, soft tissue, and skin]44-56-0564NtyokemfJijmhvyjdzs deficiencies (20 sources)Active rickets; Translations: [Rickets, active]Onset: 11-08-2022 Resolved: 449926-12-1573VrwsctsRaof wounds of extremities (2 sources)Laceration of left index finger; Translations: [Laceration without foreign body of left index finger without damage to nail, initial encounter] 40-36-4226MsukfcazEgcqv aftercare (20 sources)Transplant follow-up; Translations: [Encounter for aftercare following other organ transplant]Onset: 998086-54-8370KpvfxizEsrph aftercare (1 source)Removal of sutures done; Translations: [Encounter for removal of sutures]66-65-1252EejfzaucOljka and ill-defined heart disease (1 source)Heart disease; Translations: [Heart disease, unspecified]01-06-2025 ChronicOther and unspecified benign neoplasm (1 source)Polyp of colon; Translations: [Polyp of colon]Onset: 01-11-2024 EpisodicOther circulatory disease (2 sources)Orthostatic hypotension; Translations: [Orthostatic hypotension] 93-45-3385AmjcibaqAccpl endocrine disorders (20 sources)Male hypogonadism; Translations: [Testicular hypofunction]Onset: 240658-95-3692KthxlwlIcwyl nervous system disorders (20 sources)Neuropathy; Translations: [Polyneuropathy, unspecified]Onset: 365299-72-8377GnpjfziLrqra non-epithelial cancer of skin (10 sources)History of malignant basal cell neoplasm of skin; Translations: [Personal history of other malignant neoplasm of skin]48-20-1297UeufmkyuJqgxy nutritional; endocrine; and metabolic disorders (20 sources)Hypervitaminosis A; 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]Onset: 458645-20-7163ZqzyqelUkjmk skin disorders (6 sources)Actinic keratosis; Translations: [Actinic keratosis]05-02-2024 EpisodicOther skin disorders (4 sources)Lentiginosis; Translations: [Other melanin hyperpigmentation] 62-19-9357YdvjnrhpXwvdj skin disorders (4 sources)Seborrheic keratosis; Translations: [Other seborrheic keratosis] 23-96-6919TmufftsaRpgov skin disorders (3 sources)Inflamed seborrheic keratosis; Translations: [Inflamed seborrheic keratosis]72-60-4725IzhcansvOcons skin disorders (1 source)Fistula; Translations: [Other specified disorders of the skin and subcutaneous tissue]15-01-3772JyztlkjyWrlppht on above:left armPeri-; endo-; and myocarditis; cardiomyopathy (except that caused by tuberculosis or sexually transmitted disease) (4 sources)Cardiomyopathy; Translations: [Cardiomyopathy, unspecified]01-29-2024 ChronicScreening and history of mental health and substance abuse codes (1 source)Ex-smoker; Translations: [Personal history of tobacco use]Episodic Comment on above:Quit in 2008;Unclassified (4 sources)Patient encounter noebws29-56-5909Aabrx infection (4 sources)Herpes zoster; Translations: [Zoster with other complications] 96-35-1944Lfuvsmwu Past or Other Problems Problem ClassificationProblemDateDocumented DateEpisodic/ChronicAcute bronchitis (20 sources)Acute bronchitis; Translations: [Acute bronchitis, unspecified] Onset: 424162-08-6193CebbgdheJcabhvg dysrhythmias (2 sources)Palpitations; Translations: [Palpitations]Onset: 11-17-6015Ebixdnlq Conditions associated with dizziness or vertigo (6 sources)Dizziness; Translations: [Dizziness and giddiness]Onset: 09-18-2024 27-15-9230DhmcupngEtqcrpyn mellitus without complication (20 sources)Impaired fasting glycemia; Translations: [Impaired fasting glucose] Onset: 502781-97-4371BnihauvxCcish and electrolyte disorders (20 sources)Disorder of electrolytes; Translations: [Other disorders of electrolyte and fluid balance, not elsewhere classified]Onset: 05-04-2022 65-36-7509QhkieayiYhqfhhbolpyad symptoms and ill-defined conditions (20 sources)Nocturia; Translations: [Nocturia]Onset: 43-04-0301DbxfkycmRtgz disorders (20 sources)Mood disordersOnset: 11-08-2022 Resolved: [id number] chest pain (20 sources)Chest pain; Translations: [Chest pain, unspecified]Onset: 06-05-2023 36-15-3313EskaaaoeGljkrdw on above:Problem List clean-up per request of Phys. EHR CmteOther and unspecified benign neoplasm (20 sources)History of polyp of colon; Translations: [Personal history of colonic polyps]Onset: 98-72-1499WpqwtfjsBwkuq hematologic conditions (20 sources)Red blood cell disorder; Translations: [Other abnormality of red blood cells]Onset: [id number]qo hematologic conditions (1 source)Other abnormality of red blood cells; Translations: [Other abnormality of red blood cells]Onset: 21-44-4956GbeyaoyfFomxb lower respiratory disease (20 sources)Other forms of dyspnea; Translations: [Other respiratory abnormalities]Onset: 342225-77-0267NtyecljqHoofo screening for suspected conditions (not mental disorders or infectious disease) (20 sources)Abnormal electrocardiogram [ECG] [EKG]; Translations: [Screening for malignant neoplasm of colon done]Onset: 26-06-9711PnvkvskqFkacq upper respiratory infections (20 sources)Upper respiratory infection; Translations: [Acute upper respiratory infection, unspecified]Onset: 797369-61-2480WsfigwoaWxtxcvio codes; unclassified (20 sources)At risk for infection; Translations: [Personal history of immunosupression therapy]Onset: 498147-98-3396MmttlchdBdjbylr tract infections (20 sources)Pyelonephritis; Translations: [Tubulo-interstitial nephritis, not specified as acute or chronic]Onset: 400935-55-6055Tfdfnnuq Results Test NameValueInterpretationReference RangeFacilityALL CBC WITH AUTO DIFFon 02-20-7303VDATZXXFF ABSOLUTE NNPO7PEXL HealthcareBasophils/100 WBC (Bld)0.4 %0.2 - 2.0 %NOMS HealthcareEosinophils/100 WBC (Bld)1.5 %0.9 - 7.0 %[facility] Healthcare Erythrocyte distribution width (RBC) [Ratio]14.4 %11.0 - 15.0 %[facility] Healthcare Hematocrit (Bld) [Volume fraction]43.7 %42.0 - 54.0 %NOM HealthcareHemoglobin (Bld) [Mass/Vol]14.2 g/dL14.0 - 18.0 g/dLNOCA HealthcareIMMATURE GRANULOCYTES ABS AUTO0.01NOMS HealthcareImmature granulocytes/100 WBC (Bld)0.2 %0.0 - 0.5 % NOM HealthcareInterpretation and review of laboratory resultsAbnormalNOMS HealthcareLYMPHOCYTES ABSOLUTE AUTO0.9LowNOMS HealthcareLymphocytes/100 WBC (Bld)15.9 %Low20.5 - 60.0 %[facility] CenterH (RBC) [Entitic mass]29.3 pg25.9 - 34.0 pgParkland Health CenterHC (RBC) [Mass/Vol]32.5 g/dL29.9 - 35.2 g/dLParkland Health CenterV (RBC) [Entitic vol]90.1 fL80.0 - 94.0 fLMercy Hospital WashingtonMONOCYTES ABSOLUTE AUTO0.6[facility] HealthcareMonocytes/100 WBC (Bld)10.7 %1.7 - 12.0 %[facility] WashingtonNEUTROPHILS ABSOLUTE AUTO3.8NOCA HealthcareNeutrophils/100 WBC (Bld) 71.3 %43.0 - 75.0 %[facility] WashingtonPlatelet mean volume (Bld) [Entitic vol]10.3 fL9.5 - 13.5 fLMercy Hospital WashingtonTB EO #0.1NOMS HealthcareTBH [id number] Louis University HospitalTB RBC4.85NOSaint Louis University HospitalTBH WBC5.4NOSaint Louis University HospitalCLINISYNCNOMS HealthcareCryotherapy, skin lesionon 39-15-3821KWDZBarnes-Jewish [facility] Healthcare Orders Onlyon 83-43-0142Iaufos [id number] Vishal Duke 1960 M Date Provider Department Center 01/08/2025 LASHONDA MCLEOD [facility] Family History Problem Relation Age of Onset Alzheimer's disease Mother Coronary artery disease Father Family Status - Relation Status Age at Mother Father DeceasedNormalUniversity of Ascension [facility] Medical Center AustinCryotherapy, skin lesion on 69-56-7525WJBJSoutheast [facility] surgeryon 30-89-9499Fserlad obtained: written (The rationale for Mohs as well as the risks, benefits, and alternatives. The risks of infection, scarring, bleeding, prolonged wound healing, incomplete removal, allergy to anesthesia or meds, nerve injury, and recurrence were addressed.) Portia Protocol: Procedure explained and questions answered to [...] sodium bicarbonate Procedure Details: Biopsy accession number: [id number] Biopsy lab: [place] [facility] Frozen section biopsy performed: Yes [...] of surgery? Yes When were antibiotics given? post-operativeDavis Regional Medical Centerzheng repairon 10-52-8448Evrwhnfamv: Intermediate Final length (cm): 3.4 Timeout: patient [...] or complications. Dressing type: bandage and pressure dressingBarnes-Jewish West County Hospital HealthcareALL CBC WITH AUTO DIFFon 62-06-3890MDOKDFMHV ABSOLUTE AUTO0.1NOMS [facility] Basophils/100 WBC (Bld)0.8 %0.2 - 2.0 %NOMS HealthcareEosinophils/100 WBC (Bld) 1.3 %0.9 - 7.0 %[facility] WashingtonErythrocyte distribution width (RBC) [Ratio]14.5 %11.0 - 15.0 %[facility] WashingtonHematocrit (Bld) [Volume fraction]46.4 %42.0 - 54.0 %[facility] WashingtonHemoglobin (Bld) [Mass/Vol]15.2 g/dL14.0 - 18.0 g/dLMercy Hospital WashingtonIMMATURE GRANULOCYTES ABS AUTO0.03NOSaint Louis University HospitalImmature granulocytes/100 WBC (Bld)0.5 %0.0 - 0.5 %[facility] WashingtonInterpretation and review of laboratory resultsAbnormalNOSaint Louis University HospitalLYMPHOCYTES ABSOLUTE AUTO1.1 LowNOSaint Louis University HospitalLymphocytes/100 WBC (Bld)17.9 %Low20.5 - 60.0 %[facility] MCH (RBC) [Entitic mass]29.1 pg25.9 - 34.0 pgNOSaint Louis University HospitalMCHC (RBC) [Mass/Vol]32.8 g/dL29.9 - 35.2 g/dLMercy Hospital WashingtonMCV (RBC) [Entitic vol]88.7 fL 80.0 - 94.0 fLNOSaint Louis University HospitalMONOCYTES ABSOLUTE AUTO0.6NOMS [facility] Monocytes/100 WBC (Bld)9.3 %1.7 - 12.0 %NOMMercy Mccune-Brooks HospitalNEUTROPHILS ABSOLUTE AUTO 4.5NOMS [facility] CenterNeutrophils/100 WBC (Bld)70.2 %43.0 - 75.0 %[facility] Platelet mean volume (Bld) [Entitic vol]10.4 fL9.5 - 13.5 fLMercy Hospital WashingtonTBH EO #0.1NOMS [facility] CenterTBH [id number] [facility] CenterTBH RBC5.23NOMS [facility] WBC 6.3NOSaint Louis University HospitalCLINISYNCNCHOCTAW MEMORIAL [facility] HealthcareALL CBC WITH AUTO DIFFon 11-15-2024 BASOPHILS ABSOLUTE [id number] HealthcareBasophils/100 WBC (Bld)0.5 %0.2 - 2.0 % NOMMercy Mccune-Brooks HospitalEosinophils/100 WBC (Bld)1.7 %0.9 - 7.0 %[facility] Erythrocyte distribution width (RBC) [Ratio]14.6 %11.0 - 15.0 %[facility] Hematocrit (Bld) [Volume fraction]47.4 %42.0 - 54.0 %[facility] WashingtonHemoglobin (Bld) [Mass/Vol]15.4 g/dL14.0 - 18.0 g/dLMercy Hospital WashingtonIMMATURE GRANULOCYTES ABS AUTO0.02NOSaint Louis University HospitalImmature granulocytes/100 WBC (Bld)0.3 %0.0 - 0.5 % [facility] WashingtonInterpretation and review of laboratory resultsAbnormalNOSaint Louis University HospitalLYMPHOCYTES ABSOLUTE AUTO1.1LowNSaint Luke's HospitalLymphocytes/100 WBC (Bld)16.9 %Low20.5 - 60.0 %[facility] CenterH (RBC) [Entitic mass]28.7 pg25.9 - 34.0 pgNOCenterpoint Medical CenterHC (RBC) [Mass/Vol]32.5 g/dL29.9 - 35.2 g/dLParkland Health CenterV (RBC) [Entitic vol]88.4 fL80.0 - 94.0 fLMercy Hospital WashingtonMONOCYTES ABSOLUTE AUTO0.6NOMS HealthcareMonocytes/100 WBC (Bld)9.6 %1.7 - 12.0 %NOMMercy Mccune-Brooks HospitalNEUTROPHILS ABSOLUTE AUTO4.5NOSaint Louis University HospitalNeutrophils/100 WBC (Bld)71 %43.0 - 75.0 %[facility] WashingtonPlatelet mean volume (Bld) [Entitic vol]10.3 fL9.5 - 13.[address]LS[address] [facility] EO #0.1NOMS [facility] CenterTB [id number] [facility] RBC5.36[facility] WBC6.4[facility] Informationon 66-09-9238Nxur of biopsy: tangential Informed consent: discussed and [...] Photo taken Amount of lidocaine used: 1.0 [facility]ential Informed consent: discussed and [...] Photo taken Amount of lidocaine used: 1.0 [facility] Type of biopsy: tangential Informed consent: discussed [...] Photo taken Amount of lidocaine used: 1.0 [facility]Type of biopsy: tangential Informed consent: discussed and [...] details: Photo taken Amount of lidocaine used: 1.0[facility] Follow-Upon 77-07-7533Nmqien-[id number] Vishal Duke 1960 M Date Provider Department Center 10/17/2024 78784-DANBEGYMACRINA DALY None Family History Problem Relation Age of Onset Alzheimer's disease Mother Coronary artery disease Father Family Status - Relation Status Age at Mother Father Level of Service:53667 [place] OFFICE/OUTPATIENT ESTABLISHED MOD MDM 30 MIN Reason for Visit and Comments: Kidney Follow-up [[id number]] - Patient has no concerns at this time.Normal [facility] WestOffice Visiton 21-19-5637Befrih-up visit [id number] Vishal Duke 1960 M Date Provider Department Center 10/17/2024 [address] MICHELLE [facility] Family History Problem Relation Age of Onset Alzheimer's disease Mother Coronary artery disease Father Family Status - Relation Status Age at Mother Father Level of Service:59787 [place] OFFICE/OUTPATIENT ESTABLISHED LOW MDM 20 MINNoKindred HealthcareCA ECHO DOPPLER COMPLETEon 29-65-0451[place]xoL[place] [address] Cardiology Report Signed Patient: VISHAL DUKE MR#: [id number] : 1960 Acct:[id number] Age/Sex: 63 / M ADM Date: 10/15/24 Loc: CARD Attending Dr: Federico Chester M.D. Ordering Physician: Federico Chester M.D. Date of Service: 10/15/24 Procedure(s): CA echo doppler complete Accession Number(s): [id number] cc: Federico Chester M.D.; ROSA M GONZALES Patient Name: VISHAL DUKE MR#: [id number] : 1960 Exam Date: 10/15/2024 Ordering Doctor: [...] Area (VTI): 3.55 cm2, 3.55 cm2 Deceleration [place]: 0.90 m/s2 Pressure Half-Time: 1.03 s Peak Velocity(Antegrade Flow): 1.03 m/s Peak Gradient(Antegrade Flow): 4.25 m (more content not included)...[facility] Radiology, Radiologist, - 10/15/[address] [place] [address] Cardiology Report Signed Patient: VISHAL DUKE MR#: [id number] : 1960 Acct:[id number] Age/Sex: 63 / M ADM Date: 10/15/24 Loc: CARD Attending Dr: Federico Chester M.D. Ordering Physician: Federico Chester M.D. Date of Service: 10/15/24 Procedure(s): CA echo doppler complete Accession Number(s): [id number] cc: Federico Chester M.D.; ROSA M GONZALES Patient Name: VISHAL DUKE MR#: [id number] : 1960 Exam Date: 10/15/2024 Ordering Doctor: [...] Area (VTI): 3.55 cm2, 3.55 cm2 Deceleration [place]: 0.90 m/s2 Pressure Half-Time: 1.03 s Peak [...] Signed By: 10/15/24 143 DD/ 31 TD/TT: Tax Accounting Assistant: [facility] WashingtonRadiology Study observation (narrative)[facility] ECHO DOPPLER COMPLETEOrdered By: Radiologist Radiology on 28-82-4602CBNKMercy Hospital Washington Work Phone: aLL MAGNESIUMon 78-48-0735Zgudsjxml [Mass/Vol]1.7 mg/dLLow1.8 - 2.4 mg/dLNOCA HealthcareALL PHOSPHOROUSon 89-65-0213Phepvuqzs [Mass/Vol]3.4 mg/dL2.6 - 4.7 mg/dLMercy Hospital WashingtonALL URIC ACIDon 41-83-2705Racep [Mass/Vol]6.7 mg/dL3.5 - 7.2 mg/dLMercy Hospital WashingtonCCF CMP (CMP) (FOR REMOTE [facility] USE)on 05-79-6437Ehlknmg [Mass/Vol]3.6 g/dL3.4 - 5.0 g/dLMercy Hospital WashingtonALBUMIN GLOBULIN RATIO1.2[facility] HealthcareALP [Catalytic activity/Vol]94 U/L46 - 116 U/L [facility] HealthcareALT [Catalytic activity/Vol]29 U/L16 - 63 U/LNOMS HealthcareAnion gap [Moles/Vol]16.1 mmol/LNOMS HealthcareAST [Catalytic activity/Vol]18 U/L15 - 37 U/LNOMS HealthcareBilirubin [Mass/Vol]0.6 mg/dL0.2 - 1.0 mg/dLNOMS Healthcare Calcium [Mass/Vol]9.1 mg/dL8.5 - 10.1 mg/dLNOMS HealthcareChloride [Moles/Vol] 107 mmol/L98 - 107 mmol/LNOMS HealthcareCO2 [Moles/Vol]26.3 mmol/L21.0 - 32.0 mmol/LNOMS HealthcareCreatinine [Mass/Vol]1.29 mg/dL0.70 - 1.30 mg/dLNOMS HealthcareGFR/1.73 sq M.predicted CKD-EPI (S/P/Bld) [Vol rate/Area]>60>=60 mL/min/1.73m 2NOMS HealthcareGlobulin (S) [Mass/Vol]3.1 g/dLNOMS Healthcare Glucose [Mass/Vol]133 mg/iDFysg55 - 106 mg/dLNOMS HealthcarePotassium [Moles/Vol]4.4 mmol/L3.5 - 5.1 mmol/LNOMS HealthcareProtein [Mass/Vol]6.7 g/dL 6.4 - 8.2 g/dLNOMS HealthcareSodium [Moles/Vol]145 mmol/L136 - 145 mmol/LNOMS HealthcareTBH EGFR-NON AF HCGHLSYI45Fsv>=60 mL/min/1.73m 2NOMS HealthcareUrea nitrogen [Mass/Vol]21 mg/dLHigh7.0 - 18.0 mg/dLNOMS HealthcareUrea nitrogen/Creatinine [Mass ratio]16.3 mg/mgNOMS HealthcareMETRO BILIRUBIN, DIRECT on 63-79-1341Iqrnnjrda.indirect [Mass/Vol]0.1 mg/dL0.0 - 0.2 mg/dLNOMS HealthcareNo Panel Informationon 91-90-0813Tprvwzbgjpbccx and review of laboratory resultsAbnormalNOMS HealthcareCLINISYNCNOMS HealthcareNo Panel Informationon 73-70-4306Lgohswsflaqclu and review of laboratory resultsAbnormal NOMS HealthcareNOMS HealthcareOffice Visiton 98-46-5900Vazyxu-up [id number] Vishal Duke 1960 M Date Provider Department Center 09/18/2024 [address] CARD [facility] Family History Problem Relation Age of Onset Alzheimer's disease Mother Coronary artery disease Father Family Status - Relation Status Age at Mother Father Level of Service:24508 [place] OFFICE/OUTPATIENT ESTABLISHED MOD [facility] 30 [facility] HospitalALL CBC WITH AUTO DIFFon 73-18-2730XGFHRWFYI ABSOLUTE [id number] HealthcareBasophils/100 WBC (Bld)0.6 %0.2 - 2.0 %NOMS HealthcareEosinophils/100 WBC (Bld)1 %0.9 - 7.0 %NOMS HealthcareErythrocyte distribution width (RBC) [Ratio]14.2 %11.0 - 15.0 %NOMS HealthcareHematocrit (Bld) [Volume fraction]48 %42.0 - 54.0 %NOMS HealthcareHemoglobin (Bld) [Mass/Vol]15.4 g/dL14.0 - 18.0 g/dLNOCA HealthcareIMMATURE GRANULOCYTES ABS AUTO 0.01NOMS HealthcareImmature granulocytes/100 WBC (Bld)0.1 %0.0 - 0.5 %NOMS HealthcareInterpretation and review of laboratory resultsAbnormalNOSaint Louis University Hospital LYMPHOCYTES ABSOLUTE MYKA5ArvJHEK HealthcareLymphocytes/100 WBC (Bld)15.2 %Low 20.5 - 60.0 %NOMMissouri Delta Medical CenterH (RBC) [Entitic mass]28.7 pg25.9 - 34.0 pgNOSaint Louis University HospitalMCHC (RBC) [Mass/Vol]32.1 g/dL29.9 - 35.2 g/dLNOSaint Louis University HospitalMCV (RBC) [Entitic vol]89.4 fL80.0 - 94.0 fLNOCA HealthcareMONOCYTES ABSOLUTE AUTO0.7NOMS HealthcareMonocytes/100 WBC (Bld)10.6 %1.7 - 12.0 %NOMS HealthcareNEUTROPHILS ABSOLUTE AUTO4.9NOMS HealthcareNeutrophils/100 WBC (Bld)72.5 %43.0 - 75.0 %NOMS HealthcarePlatelet mean volume (Bld) [Entitic vol]10.3 fL9.5 - 13.5 fLNOSaint Louis University HospitalTBH EO #0.1NOMS HealthcareTBH [id number] [facility] CenterTBH RBC5.37NOMS [facility] CenterTBH WBC6.7NOMS HealthcareCLINISYNCNSaint Luke's HospitalALL CBC WITH AUTO DIFFon 71-00-8732SMLHEVIFQ ABSOLUTE JXBL3PIVH HealthcareBasophils/100 WBC (Bld) 0.6 %0.2 - 2.0 %NOMMercy Mccune-Brooks HospitalEosinophils/100 WBC (Bld)1.4 %0.9 - 7.0 %[facility] WashingtonErythrocyte distribution width (RBC) [Ratio]13.4 %11.0 - 15.0 %NOMMercy Mccune-Brooks HospitalHematocrit (Bld) [Volume fraction]47 %42.0 - 54.0 %[facility] Hemoglobin (Bld) [Mass/Vol]15.2 g/dL14.0 - 18.0 g/dLMercy Hospital WashingtonIMMATURE GRANULOCYTES ABS AUTO0.02NOSaint Louis University HospitalImmature granulocytes/100 WBC (Bld)0.3 % 0.0 - 0.5 %[facility] WashingtonInterpretation and review of laboratory results AbnormalNOSaint Louis University HospitalLYMPHOCYTES ABSOLUTE AUTO1.1LowNSaint Luke's Hospital Lymphocytes/100 WBC (Bld)16.3 %Low20.5 - 60.0 %[facility] CenterH (RBC) [Entitic mass]29.2 pg25.9 - 34.0 pgParkland Health CenterHC (RBC) [Mass/Vol]32.3 g/dL29.9 - 35.2 g/dLParkland Health CenterV (RBC) [Entitic vol]90.2 fL80.0 - 94.0 fLMercy Hospital WashingtonMONOCYTES ABSOLUTE AUTO0.7NOSaint Louis University HospitalMonocytes/100 WBC (Bld)10.4 % 1.7 - 12.0 %[facility] WashingtonNEUTROPHILS ABSOLUTE AUTO4.6NOSaint [facility] Hospital Neutrophils/100 WBC (Bld)71 %43.0 - 75.0 %[facility] WashingtonPlatelet mean volume (Bld) [Entitic vol]10.4 fL9.5 - 13.5 fLMercy Hospital WashingtonTB EO #0.1NOMS [facility] TB [id number] County Memorial Hospital RBC5.21NOPerry County Memorial Hospital WBC6.4NOSaint Louis University Hospital CLINISYNCMercy Hospital WashingtonDestr of lesionon 18-11-5853Fgwqzzitby: simple Destruction method: electrodesiccation and curettage Informed consent: discussed and consent obtained Informed consent comment: The risks of the procedure were discussed, including, but not limited to risks of scarring, darker or sweet pickle maker pigmentary changes, recurrence, infection, and incomplete removal [...] lidocaine used: 2.0 cc Previous accession number: [id number] Hospital WashingtonDestr of lesionOrdered By: Kendy Salvador on 60-83-1368VRQOHermann Area District Hospital Panel Informationon 06-13-2024 Consent obtained: written (The rationale for Mohs as well as the risks, benefits, and alternatives. The risks of infection, scarring, bleeding, prolonged wound healing, incomplete removal, allergy to anesthesia or meds, nerve injury, and recurrence were addressed.) Portia Protocol: Procedure explained and questions answered to [...] sodium bicarbonate Procedure Details: Biopsy accession number: [id number] Biopsy lab: [facility] Date of biopsy: 05/02/2024 Frozen section biopsy performed: Yes Specimen debulked: No Pre-Op diagnosis: squamous cell carcinoma MohsAIQ Surgical site (if tumor spans multiple areas, please select predominant area): rastafarian Surgery side: left Surgical site (from skin [...] antibiotics given on the day of surgery?: NoNOMS HealthcareNo Panel InformationOrdered By: Avelina Pena on 74-80-9599CUCT HealthcareOrders Onlyon 93-72-0347Gfefzf [id number] Vishal Duke 1960 M Date Provider Department Center 06/12/2024 ZACHARY BLACKWELL [facility] [address] Family History Problem Relation Age of Onset Alzheimer's disease Mother Coronary artery disease Father Family Status - Relation Status Age at Mother Father DeceasedNoalUUniversity Hospitals Cleveland Medical CenterDocumentationon [id number] Vishal Duke Waldemar 1960 M Date Provider Department Center 06/11/2024 26649-LGJM-EYYM, HOLLI TXP None Family History Problem Relation Age of Onset Alzheimer's disease Mother Coronary artery disease Father Family Status - Relation Status Age at Mother Father DeceasedNoalUUniversity Hospitals Cleveland Medical CenterMLR HEMOGLOBIN A1Con 84-28-3252Gimmjbv [Mass/Vol]131 mg/dLNOCA IgqpbgbwtnHtP2b (Bld) [Mass fraction] 6.2 %4.5 - 6.2 %NOMS HealthcareComment on above:ADA RECOMMENDED LIMIT 4.0 - 6.0 ADA THERAPEUTIC TARGET < 7.0 ACTION SUGGESTED > 7.0 CLINISYNCNOMS HealthcareALL CBC WITH AUTO DIFFon 39-70-3010BDOHCXIRO ABSOLUTE LEWQ8ZEMO HealthcareBasophils/100 WBC (Bld)0.6 %0.2 - 2.0 %NOMS Healthcare Eosinophils/100 WBC (Bld)1.6 %0.9 - 7.0 %NOMS HealthcareErythrocyte distribution width (RBC) [Ratio]13.2 %11.0 - 15.0 %NOMS HealthcareHematocrit (Bld) [Volume fraction]46.2 %42.0 - 54.0 %NOMS HealthcareHemoglobin (Bld) [Mass/Vol]15.1 g/dL 14.0 - 18.0 g/dLNOCA HealthcareIMMATURE GRANULOCYTES ABS AUTO0.02NOMS [facility] Immature granulocytes/100 WBC (Bld)0.3 %0.0 - 0.5 %NOMS HealthcareInterpretation and review of laboratory resultsAbnormalNOMS HealthcareLYMPHOCYTES ABSOLUTE TSMQ4HpiRWGW HealthcareLymphocytes/100 WBC (Bld)16 %Low20.5 - 60.0 %NOMMercy Mccune-Brooks HospitalMCH (RBC) [Entitic mass]30.6 pg25.9 - 34.0 pgParkland Health CenterHC (RBC) [Mass/Vol]32.7 g/dL29.9 - 35.2 g/dLParkland Health CenterV (RBC) [Entitic vol]93.5 fL 80.0 - 94.0 fLMercy Hospital WashingtonMONOCYTES ABSOLUTE AUTO0.6NOSaint Louis [facility] Hospital Monocytes/100 WBC (Bld)9.3 %1.7 - 12.0 %NOMMercy Mccune-Brooks HospitalNEUTROPHILS ABSOLUTE AUTO 4.5NOSaint Louis University HospitalNeutrophils/100 WBC (Bld)72.2 %43.0 - 75.0 %[facility] Platelet mean volume (Bld) [Entitic vol]10.2 fL9.5 - 13.5 fLMercy Hospital WashingtonTBH EO #0.1NOMS [facility] CenterTB [id number] [facility] RBC4.94NOMS [facility] WBC 6.3NOSaint Louis University HospitalCLINISYNCNMissouri Southern Healthcare Panel Informationon 34-62-6168Fqnz of biopsy: tangential Informed consent: discussed and [...] Photo taken Amount of lidocaine used: 1.0 ccNOMS [facility] CampusType of biopsy: tangential Informed consent: discussed and [...] Photo taken Amount of lidocaine used: 1.0 [facility]Type of biopsy: tangential Informed consent: discussed and [...] Photo taken Amount of lidocaine used: 0.5 [facility] Follow-Upon 75-75-8014Vjlxwd-[id number] Vishal Duke 1960 M Date Provider Department Center 04/11/2024 09095-SNTPNBJMACRINA DALY None Family History Problem Relation Age of Onset Alzheimer's disease Mother Coronary artery disease Father Family Status - Relation Status Age at Mother Father Level of Service:72854 [place] OFFICE/OUTPATIENT ESTABLISHED MOD MDM 30 MIN Reason for Visit and Comments: Kidney Follow-up [[id number]] - Pt has no concerns at this time.[facility] CenterALL CBC WITH AUTO DIFFon 77-98-8378VCAIUPTPF ABSOLUTE QRCE3NHBFSaint Louis University HospitalBasophils/100 WBC (Bld)0.6 %0.2 - 2.0 %[facility] Eosinophils/100 WBC (Bld)1.4 %0.9 - 7.0 %[facility] WashingtonErythrocyte distribution width (RBC) [Ratio]13.9 %11.0 - 15.0 %[facility] WashingtonHematocrit (Bld) [Volume fraction]47.3 %42.0 - 54.0 %[facility] WashingtonHemoglobin (Bld) [Mass/Vol]15.7 g/dL 14.0 - 18.0 g/dLMercy Hospital WashingtonIMMATURE GRANULOCYTES ABS AUTO0.02NOSaint [facility] Hospital Immature granulocytes/100 WBC (Bld)0.3 %0.0 - 0.5 %[facility] WashingtonInterpretation and review of laboratory resultsAbnormSelect Specialty Hospital - Laurel HighlandsLYMPHOCYTES ABSOLUTE AUTO1.2NOMS [facility] CenterLymphocytes/100 WBC (Bld)18.6 %Low20.5 - 60.0 %[facility] Health CenterH (RBC) [Entitic mass]31.1 pg25.9 - 34.0 pgParkland Health CenterHC (RBC) [Mass/Vol]33.2 g/dL29.9 - 35.2 g/dLParkland Health CenterV (RBC) [Entitic vol]93.7 fL 80.0 - 94.0 fLMercy Hospital WashingtonMONOCYTES ABSOLUTE AUTO0.6NOSaint [facility] Hospital Monocytes/100 WBC (Bld)10.1 %1.7 - 12.0 %[facility] WashingtonNEUTROPHILS ABSOLUTE AUTO4.3NOSaint Louis University HospitalNeutrophils/100 WBC (Bld)69 %43.0 - 75.0 %[facility] Platelet mean volume (Bld) [Entitic vol]10.2 fL9.5 - 13.5 fLMercy Hospital WashingtonTB EO #0.1NOMS [facility] CenterTB [id number] [facility] CenterTB RBC5.05NOMS [facility] WBC 6.2NOMS [facility] CenterCLINISYNCNSaint Luke's HospitalPrjcsidaivCjE5s (Bld) [Mass fraction]on 31-74-4290Womiyvgylfhhmt and review of laboratory resultsCount includes the [facility] Children's HospitalLaboratory - Hematology and Cell countson 91-64-3203IzT3n (Bld) [Mass fraction]6.4 %NOMS HealthcareOffice Visiton 76-02-2136Shovsk-up visit [id number] Vishal Duke 1960 M Date Provider Department Center 03/18/2024 271-STEPHANIE, [place] CARD Andreea [place] Family History Problem Relation Age of Onset Alzheimer's disease Mother Coronary artery disease Father Family Status - Relation Status Age at Mother Father Level of Service:82244 [place] OFFICE/OUTPATIENT ESTABLISHED LOW MDM 20 [facility] HospitalALL CBC WITH AUTO DIFFon 48-81-3158RCXJGSXCR ABSOLUTE WXLN4PQLT HealthcareBasophils/100 WBC (Bld)0.6 %0.2 - 2.0 %NOMS HealthcareEosinophils/100 WBC (Bld)1.5 %0.9 - 7.0 %NOMS HealthcareErythrocyte distribution width (RBC) [Ratio]14.5 %11.0 - 15.0 %NOMS HealthcareHematocrit (Bld) [Volume fraction]49.5 %42.0 - 54.0 %NOMS HealthcareHemoglobin (Bld) [Mass/Vol]16.3 g/dL14.0 - 18.0 g/dLNOCA HealthcareIMMATURE GRANULOCYTES ABS AUTO 0.02NOMS HealthcareImmature granulocytes/100 WBC (Bld)0.3 %0.0 - 0.5 %NOMS HealthcareInterpretation and review of laboratory resultsAbnormalNOCA Healthcare LYMPHOCYTES ABSOLUTE AUTO0.9LowNOMS HealthcareLymphocytes/100 WBC (Bld)14.3 %Low 20.5 - 60.0 %NOMS [facility] CenterMCH (RBC) [Entitic mass]30.5 pg25.9 - 34.0 pgNOSaint Louis University HospitalMCHC (RBC) [Mass/Vol]32.9 g/dL29.9 - 35.2 g/dLNOSaint Louis University HospitalMCV (RBC) [Entitic vol]92.7 fL80.0 - 94.0 fLNOCA HealthcareMONOCYTES ABSOLUTE AUTO0.6NOMS HealthcareMonocytes/100 WBC (Bld)8.5 %1.7 - 12.0 %NOMS HealthcareNEUTROPHILS ABSOLUTE AUTO4.9NOMS HealthcareNeutrophils/100 WBC (Bld)74.8 %43.0 - 75.0 %NOMS HealthcarePlatelet mean volume (Bld) [Entitic vol]10.3 fL9.5 - 13.5 fLNOMS HealthcareTB EO #0.1NOMS HealthcareTB [id number] HealthcareTB RBC5.34[facility] WBC6.6NOMS HealthcareCLINISYNCNOMS HealthcareAmbulatory Visit Summaryon [id number] Visit SummaryAmbulatory Visit Summary 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 [facility] [id number] Reminders From: Marie Lobato To: EU - Administrative; Sent: 03/04/2024 15:07:27 EST Show up: 05/18/2025 15:07:00 EST Subject: Ambulatory Reminder Due Date/Time: 03/01/2026 15:07:00 EST Reminder/Recall Patient needs scheduled with PRW for a 2 yr f/u with PSA, due back in February of 2026NoSelect Medical [facility], BeachwoodUrology Office/Clinic Noteon 03-04-2024 Urology Office/Clinic NoteUrology Office/Clinic Note Chief Complaint BPH with urinary [...] S/p Robotic assisted bilateral nephrectomy 01/24/[address] [facility] by [address]. Bobby Maldonado. Per pt, kidney kubawlb61 lbs. Most recent renal fxn 02/01/24 - BUN 25, Cr 1.45, GFR 49. No proteinuria per UA today. States baseline Cr 1.0-1.1. Was infected at time of recent blood work. 3. Glucosuria (R81: Glycosuria) UA todya >=1000 mg/dL. On . Follow-up With When Contact Information LEONARDA FRANK, Reji Farrell, URL [facility] [address] [place] [address]- [phone] Additional Instructions: 2 yrs w/ PSA Patient [...] Recorded influenza virus vaccine, (more content not included)...[facility] NorthComment on above:Result Comment: Electronically Signed By: Reji BROWER MD\.br\Date and Time Signed: 03/04/24 15:03 EST\.br\Electronically Co-Signed By: Esther Pan\.br\Date and Time Co-Signed: 03/04/24 15:02 EST Documentationon [id number] Vishal Duke 1960 M Date Provider Department Center 02/02/2024 PB AHUMADA None Family History Problem Relation Age of Onset Alzheimer's disease Mother Coronary artery disease Father Family Status - Relation Status Age at Mother Father DeceasedNormalUniversity of Ascension [facility] Medical Center AustinALL CBC WITH AUTO DIFFon [id number] ABSOLUTE QGPT9WZAA HealthcareBasophils/100 WBC (Bld)0.5 %0.2 - 2.0 %NOMS HealthcareEosinophils/100 WBC (Bld)1 %0.9 - 7.0 %[facility]OMMer[facility] Erythrocyte distribution width (RBC) [Ratio]13.6 %11.0 - 15.0 %NOMMercy Mccune-Brooks Hospital Hematocrit (Bld) [Volume fraction]50.4 %42.0 - 54.0 %NOMMercy Mccune-Brooks HospitalHemoglobin (Bld) [Mass/Vol]17 g/dL14.0 - 18.0 g/dLNOSaint Louis University HospitalIMMATURE GRANULOCYTES ABS AUTO0.03NOMS HealthcareImmature granulocytes/100 WBC (Bld)0.4 %0.0 - 0.5 %NOM HealthcareInterpretation and review of laboratory resultsAbnormalNOSaint Louis University Hospital LYMPHOCYTES ABSOLUTE AUTO0.9LowNOSaint Louis University HospitalLymphocytes/100 WBC (Bld)11.7 %Low 20.5 - 60.0 %[facility] (RBC) [Entitic mass]30.5 pg25.9 - 34.0 pgNOMS HealthcareMCHC (RBC) [Mass/Vol]33.7 g/dL29.9 - 35.2 g/dLNOCenterpoint Medical CenterV (RBC) [Entitic vol]90.3 fL80.0 - 94.0 fLNOMS HealthcareMONOCYTES ABSOLUTE AUTO0.8NOMS HealthcareMonocytes/100 WBC (Bld)10.6 %1.7 - 12.0 %NOMS HealthcareNEUTROPHILS ABSOLUTE AUTO5.6NOMS HealthcareNeutrophils/100 WBC (Bld)75.8 %High43.0 - 75.0 % NOMS HealthcarePlatelet mean volume (Bld) [Entitic vol]10.3 fL9.5 - 13.5 fLNOMS HealthcareTBH EO #0.1NOMS HealthcareTBH [id number] HealthcareTBH RBC5.58NOMS HealthcareTBH WBC7.4NOMS HealthcareCLINISYNCNOMS Qvennvyvut59kw Transplant Pharmacist - Drug Information The patient's [...] off at this time. Guero Lee, PharmD, [facility] Solid Organ Transplant Clinical PharmacistNormalUniversAdena Pike Medical CenterTelephoneon [id number] Vishal Duke 1960 Date Provider Department Center 01/29/2024 3915-GUERO LEE TXP None Family History Problem Relation Age of Onset Alzheimer's disease Mother Coronary artery disease Father Family Status - Relation Status Age at Mother Father Reason for Visit and Comments: Transplant Pharmacist - Drug Information [[id number]]NormalUnOhioHealth Mansfield HospitalMHPT PSA, DIAGNOSTICon [id number] SPECIFIC ANTIGEN DX0.91 ng/mLNINF - 4.00 ng/mLNOMS HealthcareCLINISYNCNOMS HealthcareResult Letter Officeon [id number] Letter OfficeResult Letter Office January 23, 2024 [address] DU[address] [place] [id number] : 1960 Below is a summary of [...] a reminder letter prior to your next duedate. [facility] [phone] Health Miami Valley Hospital Northurgical Pathology Reporton [id number] Pathology ReportMetrohealth Parma Medical Center [address] [place] [address]- Surgical Pathology Report Collected Date/Time: 01/11/2024 09:34 [...] is entirely submitted in one cassette. (DC) DC:[facility] Microscopic Description Microscopic examination performed unless gross only specified. The use of one or more reagents in the above tests is regulated as an analyte specific reagent (ASR). The test or tests are ordered following initial H&E microscopic examination. The performance characteristics were determined by the Laboratory [facility]. They have not been cleared or approved by the US Food and Drug Administration. The FDA has determined that such clearance or approval is not necessary. These tests are used for clinical purposes. They should not be regarded as investigational or for research. Appropriate positive and negative controls are performed and are acceptable. NormalRiverside Methodist HospitalComment on above:Performed By: #### [id number] #### [facility] [address] [place], [place] [address]Teqp OR Intraoperative Recordon [id number] OR Intraoperative RecordMain OR Intraoperative Record IntraOp Document Type FT Summary Primary Physician: Xochilt Graham MD Finalized Date/Time: 01/12/24 11:15:33 Pt. Name: SRIKANTH VISHAL /Sex: 1960 Male Med Rec #: [id number] Physician: Xochilt Graham MD Financial #: [id number] Pt. Type: O Room/Bed: / Admit/Disch: 01/11/24 [...] RN 01/12/24 Chart opened for charge review perM. Jesus GODWIN. [place] Case Attendance FT Entry 1 Entry 2 Entry 3 Case Attendee Nick MONTEMAYOR, STAFF PSYCHOLOGIST, [place] Nicky GODWIN, Monie Guzman Role Performed STAFF PSYCHOLOGIST Pneumatic Tester Mechanic - Primary Scrub - Primary Time In [...] Performed Staff - Other Surgeon - Primary STAFF PSYCHOLOGIST Time In 01/11/24 09:34:00 01/11/24 09:24:00 01/11/24 [...] Monie Mehta Sarmini MD, Arelis Saez CRNA, Belinda Mayers Time Out Complete 01/11/24 09:27:00 Outcomes Met? [...] and symptoms of physic (more content not included)...[facility] NorthDisohiohealth berger hospitalr Instructionson [id number] Instructions Discharge Instructions VISHAL DUKE :1960 Visit [...] FRANK, Reji Farrell Where: [facility] [address] [address]- New Follow Up Appointments after Discharge Follow Up with Gladys FRANK, JIN Saez, [facility] When: Comments: Call for any problems. [...] are over the a (more content not included)...[facility] Comment on above:Result Comment: Electronically Signed By: Maria Victoria Zaman\Date and Time Signed: 01/11/24 10:21 EDTInpatient Patient Summaryon [id number] Patient SummaryInpatient Patient Summary [place] [id number] [facility] Clinical Discharge Instructions PERSON INFORMATION Name: VISHAL DUKE PHYSICIANS Admitting Physician: Xochilt Graham MD Attending Physician: Xochilt Graham MD PCP: ROSA M GONZALES MD Discharge Diagnosis: Chronic GERD; Colon polyps Comment: PATIENT EDUCATION INFORMATION Instructions: Medication Leaflets: Follow up: Type Location Start Finish State URO Office Visit [facility] [place] 01/29/2024 10:30 AM 01/29/2024 10:45 AM [...] 2 times a day. tacrolimus 1 Milligram. Comment:[facility] NorthMain OR PACU II Recordon [id number] OR PACU II RecordMain OR PACU II Record PACU Phase II Document Type FT Summary Primary Physician: Xochilt Graham MD Finalized Date/Time: 01/11/24 10:56:37 Pt. Name: VISHAL DUKE Anastasia/Sex: 1960 Male Med Rec #: [id number] Physician: Xochilt Graham MD Financial #: [id number] Pt. Type: O Room/Bed: / Admit/Disch: 01/11/24 [...] and monitors body temperature Evaluates postoperative respiratory statusEvaluates postoperative cardiac status Evaluates postoperative neurological status [...] individualized perioperative plan of care The patient's rightto privacy is maintained The patient's value system, [...] with or improved from baseline levels established preoperativelyThe patient's cardiovascular status is consistent with or improved from baseline levels established preoperatively The patient's neurological status is consistent with or improved from baseline levels established preoperatively The patient demonstrates and/or reports adequate pain control throughout the perioperative period The patient received appropriate medication(s), safely administered during the perioperativeperiod Finalized By: Maria Victoria Zaman I Document Signatures Signed By: Maria Victoria Zaman I 01/11/24 10:56NoSelect Medical Cleveland Clinic Rehabilitation Hospital, BeachwoodMain OR Preoperative Recordon [id number] OR Preoperative RecordMain OR Preoperative Record Holding Area Document Type FT Summary Primary Physician: Xochilt Graham MD Finalized Date/Time: 01/11/24 09:12:50 Pt. Name: VISHAL DUKE /Sex: 1960 Male Med Rec #: [id number] Physician: Xochilt Graham MD Financial #: [id number] Pt. Type: O Room/Bed: / Admit/Disch: 01/11/24 [...] or her perioperative plan of care The patient'sright to privacy is maintained Surgery Checklist FT [...] Signatures Signed By: Stacey Hamilton RN 01/11/24 09:12NoSelect Medical [facility] Clinic Rehabilitation Hospital, BeachwoodOutpatient Surgery Discharge Instructionon [id number] Surgery Discharge InstructionOutpatient Surgery Discharge Instruction [place] [id number] Patient Discharge Instructions PERSON INFORMATION Name: VISHAL [...] Location Start Finish State URO Office [facility] [place] 01/29/2024 10:30 AM 01/29/2024 10:45 AM [...] to serve you. Thank you for choosing [facility] HERE ARE THE MEDICATION CHANGES THAT [...] 1 Milligram. PATIENT EDUCATION INFORMATION Instructions: Medication Leaflets:[facility] NorthALL CBC WITH AUTO DIFFon [id number] ABSOLUTE AUTO0.0NOMS HealthcareBasophils/100 WBC (Bld)0.6 % 0.2 - 2.0 %NOMS HealthcareEosinophils/100 WBC (Bld)1.6 %0.9 - 7.0 %[facility] WashingtonErythrocyte distribution width (RBC) [Ratio]13.3 %11.0 - 15.0 %[facility] WashingtonHematocrit (Bld) [Volume fraction]48.4 %42.0 - 54.0 %[facility] Hemoglobin (Bld) [Mass/Vol]15.7 g/dL14.0 - 18.0 g/dLMercy Hospital WashingtonIMMATURE GRANULOCYTES ABS AUTO0.03NOSaint Louis University HospitalImmature granulocytes/100 WBC (Bld)0.5 % 0.0 - 0.5 %[facility] WashingtonInterpretation and review of laboratory results AbnormalMercy Hospital WashingtonLYMPHOCYTES ABSOLUTE AUTO1.0LowMercy Hospital Washington Lymphocytes/100 WBC (Bld)15.2 %Low20.5 - 60.0 %[facility] (RBC) [Entitic mass]30.3 pg25.9 - 34.0 pgParkland Health CenterHC (RBC) [Mass/Vol]32.4 g/dL29.9 - 35.2 g/dLParkland Health CenterV (RBC) [Entitic vol]93.4 fL80.0 - 94.0 fLMercy Hospital WashingtonMONOCYTES ABSOLUTE AUTO0.6NOSaint Louis University HospitalMonocytes/100 WBC (Bld)9.7 % 1.7 - 12.0 %[facility] WashingtonNEUTROPHILS ABSOLUTE AUTO4.5[facility] Neutrophils/100 WBC (Bld)72.4 %43.0 - 75.0 %[facility] WashingtonPlatelet mean volume (Bld) [Entitic vol]10.8 fL9.5 - 13.5 fLMercy Hospital WashingtonTB EO #0.1NOMS [facility] TBH [id number] County Memorial Hospital RBC5.18NOMS [facility] WBC6.3N[facility] CLINISYNCDELTA COMMUNITY MEDICAL CENTER HealthcareAmbulatory Visit Summaryon [id number] Visit SummaryAmbulatory Visit Summary VISHAL DUKE :1960 Visit Date:02/02/2023 [...] Appointments 2023 10:00 AM EDT With: Where: [facility] Monday 10:30 AM EDT With: Reji BROWER MD Where: [facility] [address] Medications What How Much When Why Instructions [...] you for choosing us for your care. [facility] NorthGastroenterology Office/Clinic Noteon [id number] Office/Clinic NoteGastroenterology Office/Clinic Note Chief Complaint Colonoscopy HPI Staff Patient is a(n) year old male who presents today for a 10 year colonoscopy recall. Denies Fhx colon cancer. Denies previous EGD. Hx hyperplastic polyps. Denies n/v/c/d, abd pain, bloody or mucus stools. Blood thinners? Plavix Dr Chester [facility] prescribes Plavix GLP-1 agonists? no Colonoscopy 02/04/2013 w/Dr. Cerrato: DIAGNOSIS: Two sigmoid polyps as described above, status post snare polypectomy. Pathology: Sigmoid colon, biopsy: Hyperplastic polyp History of Present Illness Doing well, occasional chest burning overnight resolves with nitro, he checked with her diesel technician mechanic, does not seem to be cardiac per [...] bedtime), # 90 tab(s), Refills(s) 0, Pharmacy: [facility], 177.8, cm, 12/25/23 9:23:00 EDT, Height/Length Dosing, 94.3, kg, :23:00 EDT, Weight Dosing Colonoscopy (Hospital Procedure) 2. History of colon polyps (Z86.010: Personal history of colonic polyps) Ordered: famotidine, 40 mg = 1 tab(s), Oral, Once a day (at bedtime), # 90 tab(s), Refills(s) 0, Pharmacy: [facility], 177.8, cm, 12/25/23 9:23:00 EDT, Height/Length Dosing, 94.3, kg, :23:00 EDT, Weight Dosing Colonoscopy (Hospital Procedure) 3. Kidney transplanted (Z94.0: Kidney transplant status) Due to PCOS, status post kidney transplant 2017 and recent resection of the polycystic kidneys due to pressure on organs Ordered: famotidine, 40 mg = 1 tab(s), Oral, Once a day (at bedtime), # 90 tab(s), Refills(s) 0, Pharmacy: [facility], 177.8, cm, 12/25/23 9:23:00 EDT, Height/Length Dosing, 94.3, kg, :23:00 EDT, Weight Dosing 4. CAD (coronary artery disease) of bypass graft (I25.810: Atherosclerosis of coronary artery bypass graft(s) without angina pectoris) Status post CABG and multiple stents, hold Plavix for 5 to 7 days, will check with cardiology to ensure it is safe Ordered: famotidine, 40 mg = 1 tab(s), Oral, Once a day (at bedtime), # 90 tab(s), Refills(s) 0, Pharmacy: [facility], 177.8, cm, 12/25/23 9:23:00 EDT, Height/Length Dosing, 94.3, kg, 249:23:00 EDT, Weight Dosing 5. Chronic GERD (K21.9: Gastro-esophageal reflux disease without esophagitis) Controlled with Nexium, improved after kidney removals Start Pepcid at bedtime as needed, may use Tums and Gaviscon as needed EGD Ordered: famotidine, 40 mg = 1 tab(s), Oral, Once a day (at bedtime), # 90 tab(s), Refills(s) 0, Pharmacy: [facility], 177.8, cm, 12/25/23 9:23:00 EDT, Height/Length Dosing, 94.3, kg, :23:00 EDT, Weight Dosing Follow-up No qualifying data [...] Alzheimer's disease: Mother. Immunizati (more content not included)...[facility] Comment on above:Result Comment: Electronically Signed By: Gladys FRANK, Xochilt Butler\.br\Date and Time Signed: 12/25/23 09:51 EDTCA ECHO DOPPLER COMPLETEon 62-45-6566[place] [address] Cardiology Report Signed Patient: VISHAL DUKE MR#: [id number] : 1960 Acct:[id number] Age/Sex: 62 / M ADM Date: 12/07/23 Loc: CARD Attending Dr: Federico Chester M.D. Ordering Physician: Federico Chester M.D. Date of Service: 12/07/23 Procedure(s): CA echo doppler complete Accession Number(s): [id number] cc: Federico Chester M.D.; ROSA M GONZALES Patient Name: VISHAL DUKE MR#: [id number] : 1960 Exam Date: 12/07/2023 Ordering Doctor: DR FEDERICO CHESTER M.D. ECHOCARDIOGRAM [...] 4.01 cm Aortic Valve AoV Area (Peak Adam): 2.62 cm2, 2.62 cm2 AoV Area (VTI): [...] 32.29 ml, 32.29 ml Dictated by: Federico Chester M.D. on 12/07/2023 at 11:30 Approved by: Federico Chester M.D. on 12/07/2023 at 11:34 Dictated By: Federico Chester M.D. (more content not included)...TBHRadiology, Radiologist, MD - 12/07/20[address] [place] [address] Cardiology Report Signed Patient: VISHAL DUKE MR#: [id number] : 1960 Acct:[id number] Age/Sex: 62 / M ADM Date: 12/07/23 Loc: CARD Attending Dr: Federico Chester M.D. Ordering Physician: Federico Chester M.D. Date of Service: 12/07/23 Procedure(s): CA echo doppler complete Accession Number(s): [id number] cc: Federico Chester M.D.; ROSA M GONZALES Patient Name: VISHAL DUKE MR#: [id number] : 1960 Exam Date: 12/07/2023 Ordering Doctor: DR FEDERICO CHESTER M.D. ECHOCARDIOGRAM [...] 4.01 cm Aortic Valve AoV Area (Peak Adam): 2.62 cm2, 2.62 cm2 AoV Area (VTI): [...] 32.29 ml, 32.29 ml Dictated by: Federico Chester M.D. on 12/07/2023 at 11:30 Approved by: Federico Chester M.D. on 12/07/2023 at 11:34 Dictated By: Federico Chester M.D. Signed By: 12/07/23 1135 DD/ 1134 TD/TT: Tax Accounting Assistant: [facility] WashingtonRadiology Study observation (narrative)[facility] ECHO DOPPLER COMPLETEOrdered By: Radiologist Radiology on [id number] Hospital Washington Work Phone: TACROLIMUS ([id number]), BLOODon [id number] (FK506), BLOOD5.5 ng/mL2.0 - 20.0 ng/mLNCHOCTAW MEMORIAL HOSPITAL – HUGO HealthcareComment on above:This test was developed and its performance characteristics determined by [facility]. It has not been cleared or approved by the Food and Drug Administration. Trough (immediately following transplant) 15.0 Trough (steady state, 2 weeks or more after transplant): 3.0 - 8.0 Performed by LC-MS/MS technology. Performed at: [address] [id number] [place]eler: Evan Orozco MD, Phone: [phone] [facility] CenterK506 (TACROLIMUS) WHOLE BLOODon [id number] (FK506), Blood6.0 ng/mLNormal2.0-20.0The [facility] Medical CenterComment on above: Result Comment: Trough (immediately following transplant) 15.0 . Trough (steady state, 2 weeks or more after transplant): 3.0 - 8.0 . Performed by LC-MS/MS technology.Performed By: #### PHOS, URIC, MG, CMP, DBIL, LIPID #### [facility] [address] [place] [address] Dr. Karla LaogsBK VIRUS PCR QUANTon [id number] DNA QUANT PCR PLASMANegative NormalNegativeThe [facility] Wexner Medical CenterComment on above:Result Comment: No BK DNA detected. . The linear range of the assay is 22 - 100,000,000 IU/mL.Performed By: #### PHOS, URIC, MG, CMP, DBIL, LIPID #### [facility] [address] [place] [address] Dr. Karla LagosLog10 BKV DNA PlasmaNormalThe [facility] Medical CenterComment on above: Performed By: #### PHOS, URIC, MG, CMP, DBIL, LIPID #### [facility] [address] [place] [address] Dr. Karla LagosBILIRUBIN CONJUGATED (DIRECT)on [id number], CONJUGATED0.2 mg/dLNormal0.0-0.2The [facility] CenterComment on above:Performed By: #### PHOS, URIC, MG, CMP, DBIL, LIPID #### [facility] [address] [place] [address] Dr. Karla Bruce AUTO DIFFon [id number] #0.1 103/ulNormal0.0-0.1The [facility] Medical CenterComment on above:Performed By: #### PHOS, URIC, MG, CMP, DBIL, LIPID #### [facility] [address] [place] [address] Dr. Karla LagosBasophils/100 WBC (Bld)1.0 %Normal0.2-2.0The [facility] Comment on above:Performed By: #### PHOS, URIC, MG, CMP, DBIL, LIPID #### [facility] [address] [place] [address] Dr. Karla Gruber #0.1 103/ulNormal0.0-0.7The The Christ Hospitalment on above: Performed By: #### PHOS, URIC, MG, CMP, DBIL, LIPID #### [facility] [address] [place] [address] Dr. Karla Dioposinophils/100 WBC (Bld)1.3 %Normal0.9-7.0The [facility] Comment on above:Performed By: #### PHOS, URIC, MG, CMP, DBIL, LIPID #### [facility] [address] [place] [address] Dr. Karla Dioprythrocyte distribution width (RBC) [Ratio]14.0 %Sburce57.0-15.0 The The Christ Hospitalment on above:Performed By: #### PHOS, URIC, MG, CMP, DBIL, LIPID #### [facility] [address] [place] [address] Dr. Karla LagosHematocrit (Bld) [Volume fraction]52.7 %Ulrfln99.0-54.0The The [facility] Hospitalment on above:Performed By: #### PHOS, URIC, MG, CMP, DBIL, LIPID #### [facility] [address] [place] [address] Dr. Karla LagosHemoglobin (Bld) [Mass/Vol]17.0 g/jGBheeem97.0-18.0The [facility] Hospitalment on above:Performed By: #### PHOS, URIC, MG, CMP, DBIL, LIPID #### [facility] [address] [place] [address] Dr. Karla Youssef #0.03 10e3/ulNormal0.00-0.03The The Christ Hospitalment on above:Performed By: #### PHOS, URIC, MG, CMP, DBIL, LIPID #### [facility] [address] [place] [address] Dr. Karla Youssef %0.4 %Normal0.0-0.5The [facility] Medical CenterComment on above: Performed By: #### PHOS, URIC, MG, CMP, DBIL, LIPID #### [facility] [address] [place] [address] Dr. Karla Gaming #1.1 103/ulCritically low1.2-3.8The [facility] Comment on above:Performed By: #### PHOS, URIC, MG, CMP, DBIL, LIPID #### [facility] [address] [place] [address] Dr. Karla Rodriguezhocytes/100 WBC (Bld)16.0 %Critically low20.5-60.0The [facility] Medical CenterComment on above:Performed By: #### PHOS, URIC, MG, CMP, DBIL, LIPID #### [facility] [address] [place] [address] Dr. Karla SandovalUAL DIFF REQNONormalThe [facility] Medical CenterComment on above: Performed By: #### PHOS, URIC, MG, CMP, DBIL, LIPID #### [facility] [address] [place] [address] Dr. Karla LagosNYU LANG[facility] (RBC) [Entitic mass]29.9 bhFozuhn51.9-34.0The [facility] Medical CenterComment on above:Performed By: #### PHOS, URIC, MG, CMP, DBIL, LIPID #### [facility] [address] [place] [address] Dr. Karla Snider (RBC) [Mass/Vol]32.3 g/nSXmoeff03.9-35.2The [facility] Medical CenterComment on above:Performed By: #### PHOS, URIC, MG, CMP, DBIL, LIPID #### [facility] [address] [place] [address] Dr. Karla Snider (RBC) [Entitic vol]92.6 jTPkcbll19.0-94.0The [facility] Medical CenterComment on above:Performed By: #### PHOS, URIC, MG, CMP, DBIL, LIPID #### [facility] [address] [place] [address] Dr. Karla Dave #0.7 103/ulNormal0.3-0.8The [facility] Medical CenterComment on above:Performed By: #### PHOS, URIC, MG, CMP, DBIL, LIPID #### [facility] [address] [place] [address] Dr. Karla Gomezocytes/100 WBC (Bld)10.6 %Normal1.7-12.0The [facility] Comment on above:Performed By: #### PHOS, URIC, MG, CMP, DBIL, LIPID #### [facility] [address] [place] [address] Dr. Karla Tejeda #5.0 103/ulNormal1.4-6.5The [facility] CenterComment on above:Performed By: #### PHOS, URIC, MG, CMP, DBIL, LIPID #### [facility] [address] [place] [address] Dr. Karla Adrianutrophils/100 WBC (Bld)70.7 %Oayfwz70.0-75.0The [facility] CenterComment on above:Performed By: #### PHOS, URIC, MG, CMP, DBIL, LIPID #### [facility] [address] [place] [address] Dr. Karla Wallacelet mean volume (Bld) [Entitic vol]10.3 fLNormal9.5-13.5The [facility] CenterComment on above:Performed By: #### PHOS, URIC, MG, CMP, DBIL, LIPID #### [facility] [address] [place] [address] Dr. Karla LagosPLT263 103/riWlypkz608-433Sai [facility] CenterComment on above: Performed By: #### PHOS, URIC, MG, CMP, DBIL, LIPID #### [facility] [address] [place] [address] Dr. Karla LagosRBC5.69 106/ulNormal4.70-6.10The [facility] HospitalComment on above:Performed By: #### PHOS, URIC, MG, CMP, DBIL, LIPID #### [facility] [address] [place] [address] Dr. Karla LagosWBC7.0 103/ulNormal4.0-11.0The [facility]ment on above: Performed By: #### PHOS, URIC, MG, CMP, DBIL, LIPID #### [facility] [address] [place] [address] Dr. Karla LagosLIPID PROFILEon [id number]-HDL RATIO NORMSEE [facility] on above:Result Comment: 3.3 - 4.4 LOW RISK 4.4 - 7.1 AVERAGE RISK 7.1 - 11.0 MODERATE RISK >11.0 HIGH RISKPerformed By: #### PHOS, URIC, MG, CMP, DBIL, LIPID #### [facility] [address] [place] [address] Dr. Karla Bishopesterol [Mass/Vol]137 mg/dLNormal<=200The [facility] Comment on above:Performed By: #### PHOS, URIC, MG, CMP, DBIL, LIPID #### [facility] [address] [place] [address] Dr. Karla Bishopesterol in HDL [Mass/Vol]45 mg/jEJlzoli69-43KlzOhioHealth Van [facility] Hospital on above:Performed By: #### PHOS, URIC, MG, CMP, DBIL, LIPID #### [facility] [address] [place] [address] Dr. Karla Bishopesterol in LDL [Mass/Vol]59.0 mg/dLSt. Mary's Medical Center[facility]ont[facility] CampusComapex medical center on above:Performed By: #### PHOS, URIC, MG, CMP, DBIL, LIPID #### [facility] [address] [place] [address] Dr. Karla Mueller.total/Cholesterol in HDL [Mass ratio]3.0 {ratio} NormalThe [facility] on above:Performed By: #### PHOS, URIC, MG, CMP, DBIL, LIPID #### [facility] [address] [address] [address] Karla Martinez NORMAL> or = 60 mg/dl - LOW CARDIOVASCULAR RISK <40 mg/dl - HIGH CARDIOVASCULAR RISKWayne HealthCare Main Campus on above:Performed By: #### PHOS, URIC, MG, CMP, DBIL, LIPID #### [facility] [address] [address] [address] Karla Matute CALC NORMALSEE BELOWSt. Mary's Medical Center, Ironton CampusComment on above:Result Comment: <100 mg/dl OPTIMAL 100 - 129 mg/dl NEAR OR ABOVE OPTIMAL 130 - 159 mg/dl BORDERLINE HIGH 160 - 189 mg/dl HIGH >190 mg/dl VERY HIGH Performed By: #### PHOS, URIC, MG, CMP, DBIL, LIPID #### [facility] [address] [place] [address] Dr. Karla LagosTriglyceride [Mass/Vol]165 mg/dLCritically high<=150The [facility] on above:Performed By: #### PHOS, URIC, MG, CMP, DBIL, LIPID #### [facility] [address] [place] [address] Dr. Karla Valle CALC33.0 mg/dLNoMercy HospitalComapex medical center on above: Performed By: #### PHOS, URIC, MG, CMP, DBIL, LIPID #### [facility] [address] [place] [address] Dr. Karla LagosMAGNESIUMon 84-65-1141Cblmlyfyj [Mass/Vol]1.7 mg/dLCritically low 1.8-2.4The [facility] CenterComapex [facility] on above:Performed By: #### PHOS, URIC, MG, CMP, DBIL, LIPID #### [facility] [address] [place] [address] Dr. Karla LagosPHOSPHORUSon 13-24-1245Tzcsglsyd [Mass/Vol]3.6 mg/dLNormal2.6-4.7 The [facility] Hospitalment on above:Performed By: #### PHOS, URIC, MG, CMP, DBIL, LIPID #### [facility] [address] [place] [address] Dr. Karla Marinelli 14(COMP METB)on 69-17-9202Fcpghrt [Mass/Vol]4.0 g/dLNormal 3.4-5.0The [facility] Hospitalment on above:Performed By: #### PHOS, URIC, MG, CMP, DBIL, LIPID #### [facility] [address] [place] [address] Dr. Karla LagosAlbumin/Globulin [Mass ratio]1.1 {ratio}NormalThe [facility] CenterComment on above:Performed By: #### PHOS, URIC, MG, CMP, DBIL, LIPID #### [facility] [address] [place] [address] Dr. Karla Maldonado [Catalytic activity/Vol]96 U/LQudbqe07-479Yyw [facility] CenterComment on above:Performed By: #### PHOS, URIC, MG, CMP, DBIL, LIPID #### [facility] [address] [place] [address] Dr. Karla Velasquez [Catalytic activity/Vol]42 U/HWmferx35-48Qco [facility] Hospitalment on above:Performed By: #### PHOS, URIC, MG, CMP, DBIL, LIPID #### [facility] [address] [place] [address] Dr. Karla De La Vega gap [Moles/Vol]12.9 mmol/LNormalThe [facility] Comment on above:Performed By: #### PHOS, URIC, MG, CMP, DBIL, LIPID #### [facility] [address] [place] [address] Dr. Karla Chow [Catalytic activity/Vol]22 U/FLnakxx45-26Zfl [facility] Hospitalment on above:Performed By: #### PHOS, URIC, MG, CMP, DBIL, LIPID #### [facility] [address] [place] [address] Dr. Karla LagosBilirubin [Mass/Vol]0.7 mg/dLNormal0.2-1.0The [facility] Comment on above:Performed By: #### PHOS, URIC, MG, CMP, DBIL, LIPID #### [facility] [address] [place] [address] Dr. Karla LagosCalcium [Mass/Vol]9.4 mg/dLNormal8.5-10.1[facility] Comment on above:Performed By: #### PHOS, URIC, MG, CMP, DBIL, LIPID #### [facility] [address] [place] [address] Dr. Karla LagosChloride [Moles/Vol]103 mmol/USkzhwr10-590QvjUniversity Hospitals [facility] Comment on above:Performed By: #### PHOS, URIC, MG, CMP, DBIL, LIPID #### [facility] [address] [place] [address] Dr. Karla LagosCO2 [Moles/Vol]27.8 mmol/JZaqafc87.0-32.0[facility] Comment on above:Performed By: #### PHOS, URIC, MG, CMP, DBIL, LIPID #### [facility] [address] [place] [address] Dr. Karla LagosCreatinine [Mass/Vol]1.28 mg/dLNormal0.70-1.30The [facility] CenterComment on above:Performed By: #### PHOS, URIC, MG, CMP, DBIL, LIPID #### [facility] [address] [place] [address] Dr. Acosta ChangEGFR-AF ST LUCIAN>60Normal>=60The [facility] CenterComment on above:Performed By: #### PHOS, URIC, MG, CMP, DBIL, LIPID #### [facility] [address] [place] [address] Dr. Karla DiopGFR-NON AF HCINBAWO37 mL/min/1.32l9Jbaiyygzeh low>=60The [facility] CenterComment on above:Performed By: #### PHOS, URIC, MG, CMP, DBIL, LIPID #### [facility] [address] [place] [address] Dr. Karla LagosGlobulin (S) [Mass/Vol]3.5 g/dLNoMercy HospitalComment on above:Performed By: #### PHOS, URIC, MG, CMP, DBIL, LIPID #### [facility] [address] [place] [address] Dr. Karla LagosGlucose [Mass/Vol]123 mg/dLCritically pdav86-302Ywh [facility] CenterComment on above:Performed By: #### PHOS, URIC, MG, CMP, DBIL, LIPID #### [facility] [address] [place] [address] Dr. Karla LagosPotassium [Moles/Vol]4.7 mmol/LNormal3.5-5.1The [facility] Comment on above:Performed By: #### PHOS, URIC, MG, CMP, DBIL, LIPID #### [facility] [address] [place] [address] Dr. Karla LagosProtein [Mass/Vol]7.5 g/dLNormal6.4-8.2[facility] Comment on above:Performed By: #### PHOS, URIC, MG, CMP, DBIL, LIPID #### [facility] [address] [place] [address] Dr. Karla LagosSodium [Moles/Vol]139 mmol/VYzxirb083-806Qkd [facility] Comment on above:Performed By: #### PHOS, URIC, MG, CMP, DBIL, LIPID #### [facility] [address] [place] [address] Dr. Karla LagosUrea nitrogen [Mass/Vol]22.0 mg/dLCritically high7.0-18.0The [facility] CenterComment on above:Performed By: #### PHOS, URIC, MG, CMP, DBIL, LIPID #### [facility] [address] [place] [address] Dr. Karla LagosUrea nitrogen/Creatinine [Mass ratio]17.2 mg/mgNoMercy HospitalComment on above:Performed By: #### PHOS, URIC, MG, CMP, DBIL, LIPID #### [facility] [address] [place] [address] Dr. Karla LagosURIC ACID SERUMon [id number] [Mass/Vol]4.8 mg/dLNormal 3.5-7.2The [facility] on above:Performed By: #### PHOS, URIC, MG, CMP, DBIL, LIPID #### [facility] [address] [place] [address] Dr. Karla LagosBK VIRUS PCR QUANTon [id number] DNA QUANT PCR PLASMANegative NormalNegativeThe [facility] on above:Result Comment: No BK DNA detected. . The linear range of the assay is 22 - 100,000,000 IU/mL.Performed By: #### BKVIRUS #### [facility] [address] [place] [address] Dr. Karla LagosLog10 BKV DNA PlasmaNormalThe [facility] CenterComment on above: Performed By: #### BKVIRUS #### [facility] [address] [place] [address] Dr. Karla LagosFK506 (TACROLIMUS) WHOLE BLOODon 33-03-5187Cbjydbpvka (FK506), Blood6.1 ng/mLNormal2.0-20.0The [facility] on above:Result Comment: Trough (immediately following transplant) 15.0 . Trough (steady state, 2 weeks or more after transplant): 3.0 - 8.0 . Performed by LC-MS/MS technology.Performed By: #### PHOS, URIC, MG, CMP, DBIL, LIPID #### [facility] [address] [place] [address] Dr. Karla LagosBILIRUBIN CONJUGATED (DIRECT)on [id number], CONJUGATED0.2 mg/dLNormal0.0-0.2The [facility] on above:Performed By: #### PHOS, URIC, MG, CMP, DBIL, LIPID #### [facility] [address] [place] [address] Dr. Karla LagosCBC AUTO DIFFon [id number] #0.0 103/ulNormal0.0-0.1The [facility] CenterComment on above:Performed By: #### PHOS, URIC, MG, CMP, DBIL, LIPID #### [facility] [address] [place] [address] Dr. Karla LagosBasophils/100 WBC (Bld)0.4 %Normal0.2-2.0The [facility] Comment on above:Performed By: #### PHOS, URIC, MG, CMP, DBIL, LIPID #### [facility] [address] [place] [address] Dr. Karla Gruber #0.1 103/ulNormal0.0-0.7The [facility] CenterComment on above: Performed By: #### PHOS, URIC, MG, CMP, DBIL, LIPID #### [facility] [address] [place] [address] Dr. Karla Dioposinophils/100 WBC (Bld)1.6 %Normal0.9-7.0The [facility] Comment on above:Performed By: #### PHOS, URIC, MG, CMP, DBIL, LIPID #### [facility] [address] [place] [address] Dr. Karla Dioprythrocyte distribution width (RBC) [Ratio]14.2 %Mygtwx19.0-15.0 The [facility] CenterComment on above:Performed By: #### PHOS, URIC, MG, CMP, DBIL, LIPID #### [facility] [address] [place] [address] Dr. Karla LagosHematocrit (Bld) [Volume fraction]49.8 %Tvmlnl64.0-54.0The [facility] CenterComment on above:Performed By: #### PHOS, URIC, MG, CMP, DBIL, LIPID #### [facility] [address] [place] [address] Dr. Karla LagosHemoglobin (Bld) [Mass/Vol]16.6 g/dZLnluzq80.0-18.0The [facility] CenterComment on above:Performed By: #### PHOS, URIC, MG, CMP, DBIL, LIPID #### [facility] [address] [place] [address] Dr. Karla Youssef #0.03 10e3/ulNormal0.00-0.03The [facility] CenterComment on above:Performed By: #### PHOS, URIC, MG, CMP, DBIL, LIPID #### [facility] [address] [place] [address] Dr. Karla Youssef %0.4 %Normal0.0-0.5The [facility] CenterComment on above: Performed By: #### PHOS, URIC, MG, CMP, DBIL, LIPID #### [facility] [address] [place] [address] Dr. Karla Gaming #1.1 103/ulCritically low1.2-3.8The [facility] Comment on above:Performed By: #### PHOS, URIC, MG, CMP, DBIL, LIPID #### [facility] [address] [place] [address] Dr. Karla Rodriguezhocytes/100 WBC (Bld)14.9 %Critically low20.5-60.0The [facility] CenterComment on above:Performed By: #### PHOS, URIC, MG, CMP, DBIL, LIPID #### [facility] [address] [place] [address] Dr. Karla SandovalUAL DIFF REQNONormalThe [facility] CenterComment on above: Performed By: #### PHOS, URIC, MG, CMP, DBIL, LIPID #### [facility] [address] [place] [address] Dr. Karla LagosNYU LANG[facility] (RBC) [Entitic mass]30.4 vrTjvvgn14.9-34.0The [facility] CenterComment on above:Performed By: #### PHOS, URIC, MG, CMP, DBIL, LIPID #### [facility] [address] [place] [address] Dr. Karla LagosST. [facility] (RBC) [Mass/Vol]33.3 g/mOVrcrwx45.9-35.2The [facility] CenterComment on above:Performed By: #### PHOS, URIC, MG, CMP, DBIL, LIPID #### [facility] [address] [place] [address] Dr. Karla Hernandez (RBC) [Entitic vol]91.2 cCMqdzod46.0-94.0The [facility] Hospitalment on above:Performed By: #### PHOS, URIC, MG, CMP, DBIL, LIPID #### [facility] [address] [place] [address] Dr. Karla Dave #0.7 103/ulNormal0.3-0.8The [facility] CenterComment on above:Performed By: #### PHOS, URIC, MG, CMP, DBIL, LIPID #### [facility] [address] [place] [address] Dr. Karla Gomezocytes/100 WBC (Bld)10.3 %Normal1.7-12.0The [facility] Comment on above:Performed By: #### PHOS, URIC, MG, CMP, DBIL, LIPID #### [facility] [address] [place] [address] Dr. Karla Tejeda #5.1 103/ulNormal1.4-6.5The [facility] Hospitalment on above:Performed By: #### PHOS, URIC, MG, CMP, DBIL, LIPID #### [facility] [address] [place] [address] Dr. Karla Adrianutrophils/100 WBC (Bld)72.4 %Bcqrwf56.0-75.0The [facility] CenterComment on above:Performed By: #### PHOS, URIC, MG, CMP, DBIL, LIPID #### [facility] [address] [place] [address] Dr. Karla Wallacelet mean volume (Bld) [Entitic vol]10.4 fLNormal9.5-13.5The [facility] Hospitalment on above:Performed By: #### PHOS, URIC, MG, CMP, DBIL, LIPID #### [facility] [address] [place] [address] Dr. Karla LagosPLT248 103/wkBrrnnd191-279ZejOhioHealth Van Wert Hospital on above: Performed By: #### PHOS, URIC, MG, CMP, DBIL, LIPID #### [facility] [address] [place] [address] Dr. Karla LagosRBC5.46 106/ulNormal4.70-6.10The [facility] on above:Performed By: #### PHOS, URIC, MG, CMP, DBIL, LIPID #### [facility] [address] [place] [address] Dr. Karla LagosWBC7.1 103/ulNormal4.0-11.0[facility] on above: Performed By: #### PHOS, URIC, MG, CMP, DBIL, LIPID #### [facility] [address] [place] [address] Dr. Karla LagosLIPID PROFILEon [id number]-HDL RATIO NORMSKettering Health Hamilton on above:Result Comment: 3.3 - 4.4 LOW RISK 4.4 - 7.1 AVERAGE RISK 7.1 - 11.0 MODERATE RISK >11.0 HIGH RISKPerformed By: #### PHOS, URIC, MG, CMP, DBIL, LIPID #### [facility] [address] [place] [address] Dr. Karla LagosCholesterol [Mass/Vol]130 mg/dLNormal<=200The [facility] Comment on above:Performed By: #### PHOS, URIC, MG, CMP, DBIL, LIPID #### [facility] [address] [place] [address] Dr. Karla LagosCholesterol in HDL [Mass/Vol]43 mg/zCRtsvmb94-99YpgOhioHealth Van Wert Hospital on above:Performed By: #### PHOS, URIC, MG, CMP, DBIL, LIPID #### [facility] [address] [place] [address] Dr. Karla LagosCholesterol in LDL [Mass/Vol]61.8 mg/dLNormalThe [facility] HospitalComment on above:Performed By: #### PHOS, URIC, MG, CMP, DBIL, LIPID #### [facility] [address] [place] [address] Dr. Karla LagosCholesterjayy.total/Cholesterol in HDL [Mass ratio]3.0 {ratio} NormalUniversity Hospitals Beachwood Medical CenterComment on above:Performed By: #### PHOS, URIC, MG, CMP, DBIL, LIPID #### [facility] [address] [place] [address] Dr. Karla Martinez NORMAL> or = 60 mg/dl - LOW CARDIOVASCULAR RISK <40 mg/dl - HIGH CARDIOVASCULAR RISKSt. Mary's Medical [facility], [facility]ont[facility] CampusComment on above:Performed By: #### PHOS, URIC, MG, CMP, DBIL, LIPID #### [facility] [address] [place] [address] Dr. Karla Matute CALC NORMALSEE BELOWNoMercy HospitalComment on above:Result Comment: <100 mg/dl OPTIMAL 100 - 129 mg/dl NEAR OR ABOVE OPTIMAL 130 - 159 mg/dl BORDERLINE HIGH 160 - 189 mg/dl HIGH >190 mg/dl VERY HIGH Performed By: #### PHOS, URIC, MG, CMP, DBIL, LIPID #### [facility] [address] [place] [address] Dr. Karla LagosTriglyceride [Mass/Vol]126 mg/dLNormal<=150[facility] Comment on above:Performed By: #### PHOS, URIC, MG, CMP, DBIL, LIPID #### [facility] [address] [place] [address] Dr. Karla LagosVLDL CALC25.2 mg/dLNoMercy HospitalComment on above: Performed By: #### PHOS, URIC, MG, CMP, DBIL, LIPID #### [facility] [address] [place] [address] Dr. Karla LagosMAGNESIUMon 36-11-0788Kwkffiwrf [Mass/Vol]1.7 mg/dLCritically low 1.8-2.4The [facility] CenterComment on above:Performed By: #### PHOS, URIC, MG, CMP, DBIL, LIPID #### [facility] [address] [place] [address] Dr. Karla GarciaUSon 21-16-1932Vsxobhvbc [Mass/Vol]3.1 mg/dLNormal2.6-4.7 The [facility] Hospitalment on above:Performed By: #### PHOS, URIC, MG, CMP, DBIL, LIPID #### [facility] [address] [place] [address] Dr. Kalra Marinelli 14(COMP METB)on 60-66-5556Wmodbru [Mass/Vol]4.0 g/dLNormal 3.4-5.0The [facility] CenterComment on above:Performed By: #### PHOS, URIC, MG, CMP, DBIL, LIPID #### [facility] [address] [place] [address] Dr. Karla LagosAlbumin/Globulin [Mass ratio]1.3 {ratio}NormalThe [facility] CenterComment on above:Performed By: #### PHOS, URIC, MG, CMP, DBIL, LIPID #### [facility] [address] [place] [address] Dr. Karla Maldonado [Catalytic activity/Vol]79 U/ZIrbina12-124Ial [facility] Hospitalment on above:Performed By: #### PHOS, URIC, MG, CMP, DBIL, LIPID #### [facility] [address] [place] [address] Dr. Karla Velasquez [Catalytic activity/Vol]40 U/NDuznze86-59Ifp [facility] Hospitalment on above:Performed By: #### PHOS, URIC, MG, CMP, DBIL, LIPID #### [facility] [address] [place] [address] Dr. Karla De La Vega gap [Moles/Vol]12.8 mmol/LNormalThe [facility] on above:Performed By: #### PHOS, URIC, MG, CMP, DBIL, LIPID #### [facility] [address] [place] [address] Dr. Yilan ChangAST [Catalytic activity/Vol]24 U/YZfjtys83-55UtfUniversity Hospitals Beachwood Medical CenterComment on above:Performed By: #### PHOS, URIC, MG, CMP, DBIL, LIPID #### [facility] [address] [place] [address] Dr. Karla LagosBilirubin [Mass/Vol]0.7 mg/dLNormal0.2-1.0[facility] Comment on above:Performed By: #### PHOS, URIC, MG, CMP, DBIL, LIPID #### [facility] [address] [place] [address] Dr. Karla LagosCalcium [Mass/Vol]9.3 mg/dLNormal8.5-10.1The [facility] Comment on above:Performed By: #### PHOS, URIC, MG, CMP, DBIL, LIPID #### [facility] [address] [place] [address] Dr. Karla LagosChloride [Moles/Vol]105 mmol/HOoeqnd04-786Jlv [facility] Comment on above:Performed By: #### PHOS, URIC, MG, CMP, DBIL, LIPID #### [facility] [address] [place] [address] Dr. Karla LagosCO2 [Moles/Vol]28.4 mmol/ULsjixy95.0-32.0[facility] Comment on above:Performed By: #### PHOS, URIC, MG, CMP, DBIL, LIPID #### [facility] [address] [place] [address] Dr. Karla LagosCreatinine [Mass/Vol]1.23 mg/dLNormal0.70-1.30The [facility] CenterComment on above:Performed By: #### PHOS, URIC, MG, CMP, DBIL, LIPID #### [facility] [address] [place] [address] Dr. Karla DiopGFR-AF ST LUCIAN>60Normal>=60The [facility] CenterComment on above:Performed By: #### PHOS, URIC, MG, CMP, DBIL, LIPID #### [facility] [facility] [address] [place] [address] Dr. Karla DiopGFR-NON AF ST LUCIAN=60Normal>=60The [facility] CenterComment on above:Performed By: #### PHOS, URIC, MG, CMP, DBIL, LIPID #### [facility] [address] [place] [address] Dr. Karla LagosGlobulin (S) [Mass/Vol]3.1 g/dLNormalThe [facility] CenterComment on above:Performed By: #### PHOS, URIC, MG, CMP, DBIL, LIPID #### [facility] [address] [place] [address] Dr. Karla LagosGlucose [Mass/Vol]114 mg/dLCritically nanb76-999Iqw [facility] CenterComment on above:Performed By: #### PHOS, URIC, MG, CMP, DBIL, LIPID #### [facility] [address] [place] [address] Dr. Karla LagosPotassium [Moles/Vol]4.2 mmol/LNormal3.5-5.1[facility] Comment on above:Performed By: #### PHOS, URIC, MG, CMP, DBIL, LIPID #### [facility] [address] [place] [address] Dr. Karla LagosProtein [Mass/Vol]7.1 g/dLNormal6.4-8.2[facility] Comment on above:Performed By: #### PHOS, URIC, MG, CMP, DBIL, LIPID #### [facility] [address] [place] [address] Dr. Karla LagosSodium [Moles/Vol]142 mmol/ECyfxok818-343Kzb [facility] Comment on above:Performed By: #### PHOS, URIC, MG, CMP, DBIL, LIPID #### [facility] [address] [place] [address] Dr. Karla LagosUrea nitrogen [Mass/Vol]15.0 mg/dLNormal7.0-18.0The [facility] CenterComment on above:Performed By: #### PHOS, URIC, MG, CMP, DBIL, LIPID #### [facility] [address] [address] [address] Karla LagosUrea nitrogen/Creatinine [Mass ratio]12.2 mg/mgNoMercy HospitalComment on above:Performed By: #### PHOS, URIC, MG, CMP, DBIL, LIPID #### [facility] [address] [place] [address] Dr. Karla LagosURIC ACID SERUMon [id number] [Mass/Vol]5.1 mg/dLNormal 3.5-7.2The [facility] on above:Performed By: #### PHOS, URIC, MG, CMP, DBIL, LIPID #### [facility] [address] [place] [address] Dr. Karla LagosFK506 (TACROLIMUS) WHOLE BLOODon [id number] (FK506), Blood5.1 ng/mLNormal2.0-20.0The [facility] CenterComment on above:Result Comment: Trough (immediately following transplant) 15.0 . Trough (steady state, 2 weeks or more after transplant): 3.0 - 8.0 . Performed by LC-MS/MS technology.Performed By: #### PHOS, URIC, MG, CMP, DBIL, LIPID #### [facility] [address] [place] [address] Dr. Karla LagosBK VIRUS PCR QUANTon [id number] DNA QUANT PCR PLASMANegative NormalNegativeOhioHealth Van Wert Hospital on above:Result Comment: No BK DNA detected. . The linear range of the assay is 22 - 100,000,000 IU/mL.Performed By: #### PHOS, URIC, MG, CMP, DBIL, LIPID #### [facility] [address] [place] [address] Dr. Karla LagosLog10 BKV DNA PlasmaNoMercy HospitalComment on above: Performed By: #### PHOS, URIC, MG, CMP, DBIL, LIPID #### [facility] [address] [place] [address] Dr. Karla LagosBILIRUBIN CONJUGATED (DIRECT)on [id number], CONJUGATED0.1 mg/dLNormal0.0-0.2The [facility] CenterComment on above:Performed By: #### PHOS, URIC, MG, CMP, DBIL, LIPID #### [facility] [address] [place] [address] Dr. Karla Bruce AUTO DIFFon [id number] #0.1 103/ulNormal0.0-0.1The [facility] CenterComment on above:Performed By: #### PHOS, URIC, MG, CMP, DBIL, LIPID #### [facility] [address] [place] [address] Dr. Karla LagosBasophils/100 WBC (Bld)0.9 %Normal0.2-2.0The [facility] Comment on above:Performed By: #### PHOS, URIC, MG, CMP, DBIL, LIPID #### [facility] [address] [place] [address] Dr. Karla Gruber #0.1 103/ulNormal0.0-0.7The [facility] CenterComment on above: Performed By: #### PHOS, URIC, MG, CMP, DBIL, LIPID #### [facility] [address] [place] [address] Dr. Karla Dioposinophils/100 WBC (Bld)1.6 %Normal0.9-7.0[facility] Comment on above:Performed By: #### PHOS, URIC, MG, CMP, DBIL, LIPID #### [facility] [address] [place] [address] Dr. Karla Dioprythrocyte distribution width (RBC) [Ratio]13.4 %Ufeamw34.0-15.0 The [facility] CenterComment on above:Performed By: #### PHOS, URIC, MG, CMP, DBIL, LIPID #### [facility] [address] [place] [address] Dr. Karla LagosHematocrit (Bld) [Volume fraction]46.3 %Cozhiq92.0-54.0The [facility] CenterComment on above:Performed By: #### PHOS, URIC, MG, CMP, DBIL, LIPID #### [facility] [address] [address] [address] Karla LagosHemoglobin (Bld) [Mass/Vol]15.4 g/eIKtxunu18.0-18.0The [facility] CenterComment on above:Performed By: #### PHOS, URIC, MG, CMP, DBIL, LIPID #### [facility] [address] [address] [address] Karla Youssef #0.10 10e3/ulCritically high0.00-0.03The [facility] Comment on above:Performed By: #### PHOS, URIC, MG, CMP, DBIL, LIPID #### [facility] [address] [place] [address] Dr. Karla Youssef %1.3 %Critically high0.0-0.5The [facility] CenterComment on above:Performed By: #### PHOS, URIC, MG, CMP, DBIL, LIPID #### [facility] [address] [address] [address] Karla Gaming #1.0 103/ulCritically low1.2-3.8The [facility] Comment on above:Performed By: #### PHOS, URIC, MG, CMP, DBIL, LIPID #### [facility] [address] [place] [address] Dr. Karla Rodriguezhocytes/100 WBC (Bld)12.8 %Critically low20.5-60.0The [facility] CenterComment on above:Performed By: #### PHOS, URIC, MG, CMP, DBIL, LIPID #### [facility] [address] [address] [address] Karla Lehman DIFF REQNONormalThe [facility] CenterComment on above: Performed By: #### PHOS, URIC, MG, CMP, DBIL, LIPID #### [facility] [address] [place] [address] Dr. Karla Hernandez (RBC) [Entitic mass]30.4 dzQefncx59.9-34.0The [facility] CenterComment on above:Performed By: #### PHOS, URIC, MG, CMP, DBIL, LIPID #### [facility] [address] [place] [address] Dr. Karla Snider (RBC) [Mass/Vol]33.3 g/mSLqzjmd16.9-35.2The [facility] CenterComment on above:Performed By: #### PHOS, URIC, MG, CMP, DBIL, LIPID #### [facility] [address] [place] [address] Dr. Karla Snider (RBC) [Entitic vol]91.3 fOHbgypd84.0-94.0The [facility] CenterComment on above:Performed By: #### PHOS, URIC, MG, CMP, DBIL, LIPID #### [facility] [address] [place] [address] Dr. Karla Dave #0.6 103/ulNormal0.3-0.8The [facility] CenterComment on above:Performed By: #### PHOS, URIC, MG, CMP, DBIL, LIPID #### [facility] [address] [place] [address] Dr. Karla Gomezocytes/100 WBC (Bld)8.6 %Normal1.7-12.0The [facility] Comment on above:Performed By: #### PHOS, URIC, MG, CMP, DBIL, LIPID #### [facility] [address] [place] [address] Dr. Karla Tejeda #5.5 103/ulNormal1.4-6.5The [facility] CenterComment on above:Performed By: #### PHOS, URIC, MG, CMP, DBIL, LIPID #### [facility] [address] [place] [address] Dr. Karla Arellanoophils/100 WBC (Bld)74.8 %Lrvomz38.0-75.0The [facility] CenterComment on above:Performed By: #### PHOS, URIC, MG, CMP, DBIL, LIPID #### [facility] [address] [place] [address] Dr. Karla Ramirez mean volume (Bld) [Entitic vol]9.6 fLNormal9.5-13.5The [facility] CenterComment on above:Performed By: #### PHOS, URIC, MG, CMP, DBIL, LIPID #### [facility] [address] [place] [address] Dr. Karla LagosPLT312 103/noNvcdtg358-543Iqq [facility] CenterComment on above: Performed By: #### PHOS, URIC, MG, CMP, DBIL, LIPID #### [facility] [address] [place] [address] Dr. Karla LagosRBC5.07 106/ulNormal4.70-6.10The [facility] CenterComment on above:Performed By: #### PHOS, URIC, MG, CMP, DBIL, LIPID #### [facility] [address] [place] [address] Dr. Karla LagosWBC7.4 103/ulNormal4.0-11.0[facility] CenterComment on above: Performed By: #### PHOS, URIC, MG, CMP, DBIL, LIPID #### [facility] [address] [place] [address] Dr. Karla BuchananID PROFILEon 79-82-2195GQQT-HDL RATIO [facility]ult[facility] HospitalComment on above:Result Comment: 3.3 - 4.4 LOW RISK 4.4 - 7.1 AVERAGE RISK 7.1 - 11.0 MODERATE RISK >11.0 HIGH RISKPerformed By: #### PHOS, URIC, MG, CMP, DBIL, LIPID #### [facility] [address] [place] [address] Dr. Karla LagosCholesterol [Mass/Vol]108 mg/dLNormal<=200The [facility] Comment on above:Performed By: #### PHOS, URIC, MG, CMP, DBIL, LIPID #### [facility] [address] [place] [address] Dr. Yilan ChangCholesterol in HDL [Mass/Vol]36 mg/dLCritically dwe04-64DizOhioHealth Van Wert Hospital on above:Performed By: #### PHOS, URIC, MG, CMP, DBIL, LIPID #### [facility] [address] [address] [address] Karla Bishopesterol in LDL [Mass/Vol]58.4 mg/dLNoMercy HospitalComment on above:Performed By: #### PHOS, URIC, MG, CMP, DBIL, LIPID #### [facility] [address] [address] [address] Karla Mueller.total/Cholesterol in HDL [Mass ratio]3.0 {ratio} NormalOhioHealth Van Wert Hospital on above:Performed By: #### PHOS, URIC, MG, CMP, DBIL, LIPID #### [facility] [address] [place] [address] Dr. Karla Martinez NORMAL> or = 60 mg/dl - LOW CARDIOVASCULAR RISK <40 mg/dl - HIGH CARDIOVASCULAR RISKNoMercy HospitalComment on above:Performed By: #### PHOS, URIC, MG, CMP, DBIL, LIPID #### [facility] [address] [place] [address] Dr. Karla Matute CALC NORMALSEE BELOWSt. Mary's Medical Center, Ironton CampusComment on above:Result Comment: <100 mg/dl OPTIMAL 100 - 129 mg/dl NEAR OR ABOVE OPTIMAL 130 - 159 mg/dl BORDERLINE HIGH 160 - 189 mg/dl HIGH >190 mg/dl VERY HIGH Performed By: #### PHOS, URIC, MG, CMP, DBIL, LIPID #### [facility] [address] [address] [address] Karla LagosTriglyceride [Mass/Vol]68 mg/dLNormal<=150[facility] Comment on above:Performed By: #### PHOS, URIC, MG, CMP, DBIL, LIPID #### [facility] [address] [place] [address] Dr. Karla LagosVLDL CALC13.6 mg/dLSt. Mary's Medical Center, [facility] CampusComment on above: Performed By: #### PHOS, URIC, MG, CMP, DBIL, LIPID #### [facility] [address] [place] [address] Dr. Karla LagosMAGNESIUMon 21-00-3151Dikyjupeh [Mass/Vol]1.7 mg/dLCritically low 1.8-2.4The [facility] on above:Performed By: #### PHOS, URIC, MG, CMP, DBIL, LIPID #### [facility] [address] [place] [address] Dr. Karla LagosPHOSPHORUSon 12-57-1155Gfjdpicql [Mass/Vol]3.7 mg/dLNormal2.6-4.7 The [facility] on above:Performed By: #### PHOS, URIC, MG, CMP, DBIL, LIPID #### [facility] [address] [place] [address] Dr. Karla Marinelli 14(COMP METB)on 47-09-0084Thehcex [Mass/Vol]3.4 g/dLNormal 3.4-5.0The [facility] on above:Performed By: #### PHOS, URIC, MG, CMP, DBIL, LIPID #### [facility] [address] [place] [address] Dr. Karla LagosAlbumin/Globulin [Mass ratio]1.0 {ratio}NormalThe [facility] on above:Performed By: #### PHOS, URIC, MG, CMP, DBIL, LIPID #### [facility] [address] [place] [address] Dr. Karla Maldonado [Catalytic activity/Vol]92 U/XFpvfod43-260Uih [facility] on above:Performed By: #### PHOS, URIC, MG, CMP, DBIL, LIPID #### [facility] [address] [place] [address] Dr. Karla Velasquez [Catalytic activity/Vol]33 U/ZRygmzm82-70Sqy [facility] on above:Performed By: #### PHOS, URIC, MG, CMP, DBIL, LIPID #### [facility] [address] [address] [address] Karla De La Vega gap [Moles/Vol]12.7 mmol/LNormalThe [facility] Comment on above:Performed By: #### PHOS, URIC, MG, CMP, DBIL, LIPID #### [facility] [address] [address] [address] Karla LagosAST [Catalytic activity/Vol]21 U/EGrcpsu07-91Los [facility] CenterComment on above:Performed By: #### PHOS, URIC, MG, CMP, DBIL, LIPID #### [facility] [address] [place] [address] Dr. Karla LagosBilirubin [Mass/Vol]0.4 mg/dLNormal0.2-1.0[facility] Comment on above:Performed By: #### PHOS, URIC, MG, CMP, DBIL, LIPID #### [facility] [address] [place] [address] Dr. Karla LagosCalcium [Mass/Vol]9.0 mg/dLNormal8.5-10.1[facility] Comment on above:Performed By: #### PHOS, URIC, MG, CMP, DBIL, LIPID #### [facility] [address] [place] [address] Dr. Karla LagosChloride [Moles/Vol]104 mmol/LBefdcq82-027Mac [facility] Comment on above:Performed By: #### PHOS, URIC, MG, CMP, DBIL, LIPID #### [facility] [address] [place] [address] Dr. Karla LagosCO2 [Moles/Vol]28.7 mmol/DAqfdew62.0-32.0The [facility] Comment on above:Performed By: #### PHOS, URIC, MG, CMP, DBIL, LIPID #### [facility] [address] [place] [address] Dr. Karla LagosCreatinine [Mass/Vol]1.15 mg/dLNormal0.70-1.30The [facility] CenterComment on above:Performed By: #### PHOS, URIC, MG, CMP, DBIL, LIPID #### [facility] [address] [place] [address] Dr. Karla DiopGFR-AF ST LUCIAN>60Normal>=60The The [facility] Hospitalment on above:Performed By: #### PHOS, URIC, MG, CMP, DBIL, LIPID #### [facility] [address] [place] [address] Dr. Karla DiopGFR-NON AF ST LUCIAN>60Normal>=60WVUMed[facility] Barnes[facility] Hospitalment on above:Performed By: #### PHOS, URIC, MG, CMP, DBIL, LIPID #### [facility] [address] [place] [address] Dr. Karla LagosGlobulin (S) [Mass/Vol]3.3 g/dLNormalThe [facility] CenterComment on above:Performed By: #### PHOS, URIC, MG, CMP, DBIL, LIPID #### [facility] [address] [place] [address] Dr. Karla LagosGlucose [Mass/Vol]112 mg/dLCritically nadv28-545Ury [facility] on above:Performed By: #### PHOS, URIC, MG, CMP, DBIL, LIPID #### [facility] [address] [place] [address] Dr. Karla LagosPotassium [Moles/Vol]4.4 mmol/LNormal3.5-5.1The [facility] Comment on above:Performed By: #### PHOS, URIC, MG, CMP, DBIL, LIPID #### [facility] [address] [place] [address] Dr. Karla LagosProtein [Mass/Vol]6.7 g/dLNormal6.4-8.2The [facility] Comment on above:Performed By: #### PHOS, URIC, MG, CMP, DBIL, LIPID #### [facility] [address] [place] [address] Dr. Karla LagosSodium [Moles/Vol]141 mmol/LIjqmlk301-190Acz [facility] Comment on above:Performed By: #### PHOS, URIC, MG, CMP, DBIL, LIPID #### [facility] [address] [address] [address] Karla LagosUrea nitrogen [Mass/Vol]17.0 mg/dLNormal7.0-18.0The [facility] CenterComment on above:Performed By: #### PHOS, URIC, MG, CMP, DBIL, LIPID #### [facility] [address] [address] [address] Karla Ellis nitrogen/Creatinine [Mass ratio]14.8 mg/mgNormalThe [facility] CenterComment on above:Performed By: #### PHOS, URIC, MG, CMP, DBIL, LIPID #### [facility] [address] [address] [address] Karla LagosURIC ACID SERUMon 27-69-3947Cjqkk [Mass/Vol]5.3 mg/dLNormal 3.5-7.2The [facility] CenterComment on above:Performed By: #### PHOS, URIC, MG, CMP, DBIL, LIPID #### [facility] [address] [address] [address] Karla LagosNM STRESS/REST MULTIon [id number] STRESS/REST MULTIPatient: VISHAL DUKE Exam Date: 05/30/2022 : 1960 Gender:M Ordering : DR FEDERICO CHESTER M.D. Admission #: [id number] Family : Order #: [id number] CLICK HERE TO VIEW EXAM RADIOLOGY REPORT [...] Basal inferoseptal. Basal inferior. Mid-anteroseptal. Mid-inferoseptal. Mid-inferior. [place]. SIZE: Large (5 or more segments). SEVERITY: [...] by: Aime Villasenor MD on 06/01/2022 at 06:10[facility] FK506 (TACROLIMUS) WHOLE BLOODon 90-12-4844Yputgjvxkb (FK506), Blood5.4 ng/mL Normal2.0-20.0[facility] CenterComment on above:Result Comment: Trough (immediately following transplant) 15.0 . Trough (steady state, 2 weeks or more after transplant): 3.0 - 8.0 . Performed by LC-MS/MS technology.Performed By: #### PHOS, URIC, MG, CMP, DBIL, LIPID #### [facility] [address] [place] [address] Dr. Karla Apodaca VIRUS PCR QUANTon [id number] DNA QUANT PCR PLASMANegative NormalNegativeThe The [facility] Hospitalment on above:Result Comment: No BK DNA detected. . The linear range of the assay is 22 - 100,000,000 IU/mL.Performed By: #### PHOS, URIC, MG, CMP, DBIL, LIPID #### [facility] [address] [place] [address] Dr. Karla LagosLog10 BKV DNA PlasmaNormalThe [facility] CenterComment on above: Performed By: #### PHOS, URIC, MG, CMP, DBIL, LIPID #### [facility] [address] [place] [address] Dr. Karla LagosBILIRUBIN CONJUGATED (DIRECT)on [id number], CONJUGATED0.2 mg/dLNormal0.0-0.2The [facility] CenterComment on above:Performed By: #### PHOS, URIC, MG, CMP, DBIL, LIPID #### [facility] [address] [place] [address] Dr. Karla CarvalhoC AUTO DIFFon [id number] #0.1 103/ulNormal0.0-0.1The [facility] CenterComment on above:Performed By: #### PHOS, URIC, MG, CMP, DBIL, LIPID #### [facility] [address] [place] [address] Dr. Karla LagosBasophils/100 WBC (Bld)0.7 %Normal0.2-2.0The [facility] Comment on above:Performed By: #### PHOS, URIC, MG, CMP, DBIL, LIPID #### [facility] [address] [place] [address] Dr. Karla Gruber #0.1 103/ulNormal0.0-0.7The [facility] CenterComment on above: Performed By: #### PHOS, URIC, MG, CMP, DBIL, LIPID #### [facility] [address] [place] [address] Dr. Karla Dioposinophils/100 WBC (Bld)1.6 %Normal0.9-7.0The [facility] Comment on above:Performed By: #### PHOS, URIC, MG, CMP, DBIL, LIPID #### [facility] [address] [place] [address] Dr. Karla Dioprythrocyte distribution width (RBC) [Ratio]13.7 %Wgtass94.0-15.0 The [facility] CenterComment on above:Performed By: #### PHOS, URIC, MG, CMP, DBIL, LIPID #### [facility] [address] [place] [address] Dr. Karla LagosHematocrit (Bld) [Volume fraction]49.1 %Iwkgxo47.0-54.0The [facility] CenterComment on above:Performed By: #### PHOS, URIC, MG, CMP, DBIL, LIPID #### [facility] [address] [place] [address] Dr. Karla LagosHemoglobin (Bld) [Mass/Vol]16.5 g/aCPsphuz18.0-18.0The [facility] CenterComment on above:Performed By: #### PHOS, URIC, MG, CMP, DBIL, LIPID #### [facility] [address] [place] [address] Dr. Karla Youssef #0.05 10e3/ulCritically high0.00-0.03The [facility] Comment on above:Performed By: #### PHOS, URIC, MG, CMP, DBIL, LIPID #### [facility] [address] [place] [address] Dr. Karla Youssef %0.7 %Critically high0.0-0.5The [facility] CenterComment on above:Performed By: #### PHOS, URIC, MG, CMP, DBIL, LIPID #### [facility] [address] [place] [address] Dr. Karla Gaming #1.0 103/ulCritically low1.2-3.8The [facility] Comment on above:Performed By: #### PHOS, URIC, MG, CMP, DBIL, LIPID #### [facility] [address] [place] [address] Dr. Karla Rodriguezhocytes/100 WBC (Bld)13.7 %Critically low20.5-60.0The [facility] CenterComment on above:Performed By: #### PHOS, URIC, MG, CMP, DBIL, LIPID #### [facility] [address] [place] [address] Dr. Karla Lehman DIFF REQNONormalThe [facility] CenterComment on above: Performed By: #### PHOS, URIC, MG, CMP, DBIL, LIPID #### [facility] [address] [place] [address] Dr. Karla LagosNYU LANG[facility] (RBC) [Entitic mass]30.9 mxNutnmc87.9-34.0The [facility] HospitalComment on above:Performed By: #### PHOS, URIC, MG, CMP, DBIL, LIPID #### [facility] [address] [place] [address] Dr. Karla LagosST. [facility]ATH[facility] (RBC) [Mass/Vol]33.6 g/kFKnoxpk32.9-35.2The [facility] CenterComment on above:Performed By: #### PHOS, URIC, MG, CMP, DBIL, LIPID #### [facility] [address] [place] [address] Dr. Karla LagosOKLAHOMA HOSPITAL ASSOCIATION (RBC) [Entitic vol]91.9 qMIfhzia76.0-94.0The [facility] CenterComment on above:Performed By: #### PHOS, URIC, MG, CMP, DBIL, LIPID #### [facility] [address] [place] [address] Dr. Karla Dave #0.7 103/ulNormal0.3-0.8The [facility] CenterComment on above:Performed By: #### PHOS, URIC, MG, CMP, DBIL, LIPID #### [facility] [address] [place] [address] Dr. Karla Gomezocytes/100 WBC (Bld)9.7 %Normal1.7-12.0The [facility] Comment on above:Performed By: #### PHOS, URIC, MG, CMP, DBIL, LIPID #### [facility] [address] [place] [address] Dr. Karla Tejeda #5.2 103/ulNormal1.4-6.5The [facility] CenterComment on above:Performed By: #### PHOS, URIC, MG, CMP, DBIL, LIPID #### [facility] [address] [place] [address] Dr. Karla Arellanoophils/100 WBC (Bld)73.6 %Rckhgy42.0-75.0The [facility] on above:Performed By: #### PHOS, URIC, MG, CMP, DBIL, LIPID #### [facility] [address] [place] [address] Dr. Karla LagosPlatelet mean volume (Bld) [Entitic vol]10.2 fLNormal9.5-13.5The [facility] on above:Performed By: #### PHOS, URIC, MG, CMP, DBIL, LIPID #### [facility] [address] [place] [address] Dr. Karla LagosPLT218 103/tuCkqmqq189-644Lfp [facility] on above: Performed By: #### PHOS, URIC, MG, CMP, DBIL, LIPID #### [facility] [address] [place] [address] Dr. Karla LagosRBC5.34 106/ulNormal4.70-6.10The [facility] on above:Performed By: #### PHOS, URIC, MG, CMP, DBIL, LIPID #### [facility] [address] [place] [address] Dr. Karla LagosWBC7.1 103/ulNormal4.0-11.0The [facility] on above: Performed By: #### PHOS, URIC, MG, CMP, DBIL, LIPID #### [facility] [address] [place] [address] Dr. Karla LagosLIPID PROFILEon [id number]-HDL RATIO [facility] on above:Result Comment: 3.3 - 4.4 LOW RISK 4.4 - 7.1 AVERAGE RISK 7.1 - 11.0 MODERATE RISK >11.0 HIGH RISKPerformed By: #### MG, CMP, URIC, DBIL, LIPID, PHOS #### [facility] [address] [address] [address] Karla LagosCholesterol [Mass/Vol]121 mg/dLNormal<=200The [facility] Comment on above:Performed By: #### MG, CMP, URIC, DBIL, LIPID, PHOS #### [facility] [address] [address] [address] Karla LagosCholesterol in HDL [Mass/Vol]44 mg/jJSbqwkf59-86Yda [facility] CenterComment on above:Performed By: #### MG, CMP, URIC, DBIL, LIPID, PHOS #### [facility] [address] [place] [address] Dr. Karla LagosCholesterol in LDL [Mass/Vol]40.0 mg/dLNoMercy HospitalComment on above:Performed By: #### MG, CMP, URIC, DBIL, LIPID, PHOS #### [facility] [address] [place] [address] Dr. Karla Mueller.total/Cholesterol in HDL [Mass ratio]2.8 {ratio} NormalThe [facility] CenterComment on above:Performed By: #### MG, CMP, URIC, DBIL, LIPID, PHOS #### [facility] [address] [place] [address] Dr. Karla Martinez NORMAL> or = 60 mg/dl - LOW CARDIOVASCULAR RISK <40 mg/dl - HIGH CARDIOVASCULAR RISKSt. Mary's Medical Center, Iront[place] CampusComment on above:Performed By: #### MG, CMP, URIC, DBIL, LIPID, PHOS #### [facility] [address] [place] [address] Dr. Karla LagosLDL CALC NORMALSEE BELOWSt. Mary's Medical Center, Iront[place] CampusComment on above:Result Comment: <100 mg/dl OPTIMAL 100 - 129 mg/dl NEAR OR ABOVE OPTIMAL 130 - 159 mg/dl BORDERLINE HIGH 160 - 189 mg/dl HIGH >190 mg/dl VERY HIGH Performed By: #### MG, CMP, URIC, DBIL, LIPID, PHOS #### [facility] [address] [place] [address] Dr. Karla LagosTriglyceride [Mass/Vol]185 mg/dLCritically high<=150The [facility] Hospitalment on above:Performed By: #### MG, CMP, URIC, DBIL, LIPID, PHOS #### [facility] [address] [address] [address] Karla LagosVLDL CALC37.0 mg/dLNormalThe [facility] CenterComment on above: Performed By: #### MG, CMP, URIC, DBIL, LIPID, PHOS #### [facility] [address] [place] [address] Dr. Karla LagosMAGNESIUMon [id number] [Mass/Vol]1.6 mg/dLCritically low 1.8-2.4The [facility] on above:Performed By: #### PHOS, URIC, MG, CMP, DBIL, LIPID #### [facility] [address] [place] [address] Dr. Karla LagosPHOSPHORUSon [id number] [Mass/Vol]3.6 mg/dLNormal2.6-4.7 The [facility] CenterComapex medical center on above:Performed By: #### PHOS, URIC, MG, CMP, DBIL, LIPID #### [facility] [address] [place] [address] Dr. Karla LagosPROTrudy 14(COMP METB)on [id number] [Mass/Vol]3.9 g/dLNormal 3.4-5.0The [facility] Hospitalment on above:Performed By: #### MG, CMP, URIC, DBIL, LIPID, PHOS #### [facility] [address] [place] [address] Dr. Karla LagosAlbumin/Globulin [Mass ratio]1.3 {ratio}NormalThe [facility] on above:Performed By: #### MG, CMP, URIC, DBIL, LIPID, PHOS #### [facility] [address] [place] [address] Dr. Karla Maldonado [Catalytic activity/Vol]80 U/GVymuud26-154Abh [facility] HospitalComment on above:Performed By: #### MG, CMP, URIC, DBIL, LIPID, PHOS #### [facility] [address] [address] [address] Karla Velasquez [Catalytic activity/Vol]41 U/QLoisdi82-93Gfe [facility] CenterComment on above:Performed By: #### MG, CMP, URIC, DBIL, LIPID, PHOS #### [facility] [address] [place] [address] Dr. Karla De La Vega gap [Moles/Vol]11.9 mmol/LNormalThe [facility] Comment on above:Performed By: #### MG, CMP, URIC, DBIL, LIPID, PHOS #### [facility] [address] [place] [address] Dr. Karla Chow [Catalytic activity/Vol]24 U/ANyowjs42-34Sid [facility] CenterComment on above:Performed By: #### MG, CMP, URIC, DBIL, LIPID, PHOS #### [facility] [address] [place] [address] Dr. Karla LagosBilirubin [Mass/Vol]0.7 mg/dLNormal0.2-1.0The [facility] Comment on above:Performed By: #### MG, CMP, URIC, DBIL, LIPID, PHOS #### [facility] [address] [place] [address] Dr. Karla LagosCalcium [Mass/Vol]9.2 mg/dLNormal8.5-10.1The [facility] Comment on above:Performed By: #### MG, CMP, URIC, DBIL, LIPID, PHOS #### [facility] [address] [place] [address] Dr. Karla LagosChloride [Moles/Vol]103 mmol/DZtbkfo92-492Bay [facility] Comment on above:Performed By: #### MG, CMP, URIC, DBIL, LIPID, PHOS #### [facility] [address] [place] [address] Dr. Karla LagosCO2 [Moles/Vol]28.1 mmol/JDlkvrw16.0-32.0The [facility] Comment on above:Performed By: #### MG, CMP, URIC, DBIL, LIPID, PHOS #### [facility] [address] [place] [address] Dr. Karla LagosCreatinine [Mass/Vol]1.19 mg/dLNormal0.70-1.30The [facility] CenterComment on above:Performed By: #### MG, CMP, URIC, DBIL, LIPID, PHOS #### [facility] [address] [place] [address] Dr. Karla DiopGFR-AF ST LUCIAN>60Normal>=60The [facility] Hospitalment on above:Performed By: #### MG, CMP, URIC, DBIL, LIPID, PHOS #### [facility] [address] [place] [address] Dr. Karla DiopGFR-NON AF ST LUCIAN>60Normal>=60The [facility] CenterComment on above:Performed By: #### MG, CMP, URIC, DBIL, LIPID, PHOS #### [facility] [address] [place] [address] Dr. Karla LagosGlobulin (S) [Mass/Vol]2.9 g/dLNormalThe [facility] CenterComapex medical center on above:Performed By: #### MG, CMP, URIC, DBIL, LIPID, PHOS #### [facility] [address] [place] [address] Dr. Karla LagosGlucose [Mass/Vol]119 mg/dLCritically tocj81-733Lvc [facility] on above:Performed By: #### MG, CMP, URIC, DBIL, LIPID, PHOS #### [facility] [address] [place] [address] Dr. Karla LagosPotassium [Moles/Vol]4.0 mmol/LNormal3.5-5.1The [facility] Comment on above:Performed By: #### MG, CMP, URIC, DBIL, LIPID, PHOS #### [facility] [address] [place] [address] Dr. Karla LagosProtein [Mass/Vol]6.8 g/dLNormal6.4-8.2The [facility] Comment on above:Performed By: #### MG, CMP, URIC, DBIL, LIPID, PHOS #### [facility] [address] [place] [address] Dr. Karla LagosSodium [Moles/Vol]139 mmol/MEjxeqe296-909Grl [facility] Comment on above:Performed By: #### MG, CMP, URIC, DBIL, LIPID, PHOS #### [facility] [address] [place] [address] Dr. Karla LagosUrea nitrogen [Mass/Vol]20.0 mg/dLCritically high7.0-18.0The [facility] CenterComment on above:Performed By: #### MG, CMP, URIC, DBIL, LIPID, PHOS #### [facility] [address] [place] [address] Dr. Karla Ellis nitrogen/Creatinine [Mass ratio]16.8 mg/mgNormalThe [facility] CenterComment on above:Performed By: #### MG, CMP, URIC, DBIL, LIPID, PHOS #### [facility] [address] [place] [address] Dr. Karla LagosURIC ACID SERUMon [id number] [Mass/Vol]5.5 mg/dLNormal 3.5-7.2The [facility] CenterComment on above:Performed By: #### MG, CMP, URIC, DBIL, LIPID, PHOS #### [facility] [address] [place] [address] Dr. Karla LagosFK506 (TACROLIMUS) WHOLE BLOODon [id number] (FK506), Blood6.1 ng/mLNormal2.0-20.0The [facility] CenterComment on above:Result Comment: Trough (immediately following transplant) 15.0 . Trough (steady state, 2 weeks or more after transplant): 3.0 - 8.0 . Performed by LC-MS/MS technology.Performed By: #### PHOS, URIC, MG, CMP, DBIL, LIPID #### [facility] [address] [place] [address] Dr. Karla LagosFK506 (TACROLIMUS) WHOLE BLOODon [id number] (FK506), Blood8.8 ng/mLNormal2.0-20.0The [facility] CenterComment on above:Result Comment: Trough (immediately following transplant) 15.0 . Trough (steady state, 2 weeks or more after transplant): 3.0 - 8.0 . Performed by LC-MS/MS technology.Performed By: #### PHOS, URIC, MG, CMP, DBIL, LIPID #### [facility] [address] [place] [address] Dr. Karla LagosBILIRUBIN CONJUGATED (DIRECT)on [id number], CONJUGATED0.2 mg/dLNormal0.0-0.2The [facility] CenterComment on above:Performed By: #### PHOS, URIC, MG, CMP, DBIL, LIPID #### [facility] [address] [place] [address] Dr. Karla CarvalhoC AUTO DIFFon [id number] #0.1 103/ulNormal0.0-0.1The [facility] CenterComment on above:Performed By: #### PHOS, URIC, MG, CMP, DBIL, LIPID #### [facility] [address] [place] [address] Dr. Karla LagosBasophils/100 WBC (Bld)0.7 %Normal0.2-2.0The [facility] Comment on above:Performed By: #### PHOS, URIC, MG, CMP, DBIL, LIPID #### [facility] [address] [place] [address] Dr. Karla DiopO #0.1 103/ulNormal0.0-0.7The [facility] CenterComment on above: Performed By: #### PHOS, URIC, MG, CMP, DBIL, LIPID #### [facility] [address] [place] [address] Dr. Karla Dioposinophils/100 WBC (Bld)1.4 %Normal0.9-7.0The [facility] Comment on above:Performed By: #### PHOS, URIC, MG, CMP, DBIL, LIPID #### [facility] [address] [place] [address] Dr. Karla Dioprythrocyte distribution width (RBC) [Ratio]13.6 %Wwyfnq72.0-15.0 [facility] CenterComment on above:Performed By: #### PHOS, URIC, MG, CMP, DBIL, LIPID #### [facility] [address] [place] [address] Dr. Karla LagosHematocrit (Bld) [Volume fraction]51.5 %Mpbzxg17.0-54.0The [facility] CenterComment on above:Performed By: #### PHOS, URIC, MG, CMP, DBIL, LIPID #### [facility] [address] [place] [address] Dr. Karla LagosHemoglobin (Bld) [Mass/Vol]16.8 g/jNCbojur35.0-18.0The [facility] CenterComment on above:Performed By: #### PHOS, URIC, MG, CMP, DBIL, LIPID #### [facility] [address] [place] [address] Dr. Karla Youssef #0.06 10e3/ulCritically high0.00-0.03[facility] Comment on above:Performed By: #### PHOS, URIC, MG, CMP, DBIL, LIPID #### [facility] [address] [place] [address] Dr. Karla Youssef %0.8 %Critically high0.0-0.5The [facility] CenterComment on above:Performed By: #### PHOS, URIC, MG, CMP, DBIL, LIPID #### [facility] [address] [place] [address] Dr. Karla Gaming #1.1 103/ulCritically low1.2-3.8The [facility] Comment on above:Performed By: #### PHOS, URIC, MG, CMP, DBIL, LIPID #### [facility] [address] [place] [address] Dr. Yilan ChangLymphocytes/100 WBC (Bld)14.8 %Critically low20.5-60.0The [facility] CenterComment on above:Performed By: #### PHOS, URIC, MG, CMP, DBIL, LIPID #### [facility] [address] [place] [address] Dr. Karla SandovalUAL DIFF REQNONormalThe [facility] CenterComment on above: Performed By: #### PHOS, URIC, MG, CMP, DBIL, LIPID #### [facility] [address] [place] [address] Dr. Karla LagosNYU [facility]ANG[facility] (RBC) [Entitic mass]30.2 srOulrbw62.9-34.0The [facility] CenterComment on above:Performed By: #### PHOS, URIC, MG, CMP, DBIL, LIPID #### [facility] [address] [place] [address] Dr. Karla Snider (RBC) [Mass/Vol]32.6 g/iXCiqrbh52.9-35.2The [facility] CenterComment on above:Performed By: #### PHOS, URIC, MG, CMP, DBIL, LIPID #### [facility] [address] [place] [address] Dr. Karla Snider (RBC) [Entitic vol]92.6 oPVfsxsj12.0-94.0The [facility] CenterComment on above:Performed By: #### PHOS, URIC, MG, CMP, DBIL, LIPID #### [facility] [address] [place] [address] Dr. Karla Dave #0.7 103/ulNormal0.3-0.8The [facility] CenterComment on above:Performed By: #### PHOS, URIC, MG, CMP, DBIL, LIPID #### [facility] [address] [place] [address] Dr. Karla Gomezocytes/100 WBC (Bld)10.0 %Normal1.7-12.0The [facility] Comment on above:Performed By: #### PHOS, URIC, MG, CMP, DBIL, LIPID #### [facility] [address] [place] [address] Dr. Karla Tejeda #5.2 103/ulNormal1.4-6.5The [facility] on above:Performed By: #### PHOS, URIC, MG, CMP, DBIL, LIPID #### [facility] [address] [place] [address] Dr. Karla Adrianutrophils/100 WBC (Bld)72.3 %Xsthbx85.0-75.0The [facility] on above:Performed By: #### PHOS, URIC, MG, CMP, DBIL, LIPID #### [facility] [address] [place] [address] Dr. Karla Ramirez mean volume (Bld) [Entitic vol]10.4 fLNormal9.5-13.5The [facility] on above:Performed By: #### PHOS, URIC, MG, CMP, DBIL, LIPID #### [facility] [address] [place] [address] Dr. Karla LagosPLT245 103/naNxjyjd627-296Yol [facility] on above: Performed By: #### PHOS, URIC, MG, CMP, DBIL, LIPID #### [facility] [address] [place] [address] Dr. Karla LagosRBC5.56 106/ulNormal4.70-6.10The [facility] on above:Performed By: #### PHOS, URIC, MG, CMP, DBIL, LIPID #### [facility] [address] [place] [address] Dr. Karla LagosWBC7.2 103/ulNormal4.0-11.0The [facility] on above: Performed By: #### PHOS, URIC, MG, CMP, DBIL, LIPID #### [facility] [address] [place] [address] Dr. Karla LagosLIPID PROFILEon [id number]-HDL RATIO NORMSEE BELOWNormalThe Andreea HospitalComment on above:Result Comment: 3.3 - 4.4 LOW RISK 4.4 - 7.1 AVERAGE RISK 7.1 - 11.0 MODERATE RISK >11.0 HIGH RISKPerformed By: #### PHOS, URIC, MG, CMP, DBIL, LIPID #### [facility] [address] [address] [address] Karla LagosCholesterol [Mass/Vol]124 mg/dLNormal<=200[facility] Comment on above:Performed By: #### PHOS, URIC, MG, CMP, DBIL, LIPID #### [facility] [address] [place] [address] Dr. Karla LagosCholesterol in HDL [Mass/Vol]47 mg/zQPakdye20-35EbfUniversity Hospitals Beachwood Medical CenterComment on above:Performed By: #### PHOS, URIC, MG, CMP, DBIL, LIPID #### [facility] [address] [place] [address] Dr. Karla Bishopesterol in LDL [Mass/Vol]47.4 mg/dLSt. Mary's Medical [facility], [facility]ont[place] CampusComment on above:Performed By: #### PHOS, URIC, MG, CMP, DBIL, LIPID #### [facility] [address] [place] [address] Dr. Karla Mueller.total/Cholesterol in HDL [Mass ratio]2.6 {ratio} NormalUniversity Hospitals Beachwood Medical CenterComapex medical center on above:Performed By: #### PHOS, URIC, MG, CMP, DBIL, LIPID #### [facility] [address] [place] [address] Dr. Karla Martinez NORMAL> or = 60 mg/dl - LOW CARDIOVASCULAR RISK <40 mg/dl - HIGH CARDIOVASCULAR RISKSt. Mary's Medical [facility], [place] CampusComment on above:Performed By: #### PHOS, URIC, MG, CMP, DBIL, LIPID #### [facility] [address] [place] [address] Dr. Karla Matute CALC NORMALSEE BELOWSt. Mary's Medical Center, [place] CampusComment on above:Result Comment: <100 mg/dl OPTIMAL 100 - 129 mg/dl NEAR OR ABOVE OPTIMAL 130 - 159 mg/dl BORDERLINE HIGH 160 - 189 mg/dl HIGH >190 mg/dl VERY HIGH Performed By: #### PHOS, URIC, MG, CMP, DBIL, LIPID #### [facility] [address] [place] [address] Dr. Karla LagosTriglyceride [Mass/Vol]148 mg/dLNormal<=150The [facility] Comment on above:Performed By: #### PHOS, URIC, MG, CMP, DBIL, LIPID #### [facility] [address] [place] [address] Dr. Karla LagosVLDL CALC29.6 mg/dLNormalThe [facility] CenterComment on above: Performed By: #### PHOS, URIC, MG, CMP, DBIL, LIPID #### [facility] [address] [place] [address] Dr. Karla LagosMAGNESIUMon [id number] [Mass/Vol]1.5 mg/dLCritically low 1.8-2.4The [facility] CenterComment on above:Performed By: #### PHOS, URIC, MG, CMP, DBIL, LIPID #### [facility] [address] [place] [address] Dr. Karla LagosPHOSPHORUSon 66-81-4750Cunqkqyes [Mass/Vol]3.8 mg/dLNormal2.6-4.7 The [facility] CenterComment on above:Performed By: #### PHOS, URIC, MG, CMP, DBIL, LIPID #### [facility] [address] [place] [address] Dr. Karla LagosPROF 14(COMP METB)on 96-22-1878Ikjyfnt [Mass/Vol]4.1 g/dLNormal 3.4-5.0The [facility] CenterComment on above:Performed By: #### PHOS, URIC, MG, CMP, DBIL, LIPID #### [facility] [address] [place] [address] Dr. Karla LagosAlbumin/Globulin [Mass ratio]1.3 {ratio}NormalThe [facility] HospitalComment on above:Performed By: #### PHOS, URIC, MG, CMP, DBIL, LIPID #### [facility] [address] [place] [address] Dr. Karla Maldonado [Catalytic activity/Vol]76 U/QKjhahl35-259Usn [facility] on above:Performed By: #### PHOS, URIC, MG, CMP, DBIL, LIPID #### [facility] [address] [place] [address] Dr. Karla Velasquez [Catalytic activity/Vol]36 U/JZlnvke55-25Twp [facility] on above:Performed By: #### PHOS, URIC, MG, CMP, DBIL, LIPID #### [facility] [address] [place] [address] Dr. Karla De La Vega gap [Moles/Vol]12.4 mmol/LNormalUniversity [facility]als [facility] Comment on above:Performed By: #### PHOS, URIC, MG, CMP, DBIL, LIPID #### [facility] [address] [place] [address] Dr. Karla Chow [Catalytic activity/Vol]21 U/ERfxoex35-56Fjy [facility] on above:Performed By: #### PHOS, URIC, MG, CMP, DBIL, LIPID #### [facility] [address] [place] [address] Dr. Karla LagosBilirubin [Mass/Vol]0.6 mg/dLNormal0.2-1.0The [facility] Comment on above:Performed By: #### PHOS, URIC, MG, CMP, DBIL, LIPID #### [facility] [address] [place] [address] Dr. Karla LagosCalcium [Mass/Vol]9.4 mg/dLNormal8.5-10.1[facility] Comment on above:Performed By: #### PHOS, URIC, MG, CMP, DBIL, LIPID #### [facility] [address] [place] [address] Dr. Karla LagosChloride [Moles/Vol]103 mmol/LZcitwn47-810Zqz [facility] Comment on above:Performed By: #### PHOS, URIC, MG, CMP, DBIL, LIPID #### [facility] [address] [place] [address] Dr. Karla LagosCO2 [Moles/Vol]30.6 mmol/JTdkajb51.0-32.0[facility] Comment on above:Performed By: #### PHOS, URIC, MG, CMP, DBIL, LIPID #### [facility] [address] [place] [address] Dr. Karla LagosCreatinine [Mass/Vol]1.34 mg/dLCritically high0.70-1.30The [place] [facility] CenterComment on above:Performed By: #### PHOS, URIC, MG, CMP, DBIL, LIPID #### [facility] [address] [place] [address] Dr. Acosta ChangEGFR-AF ST LUCIAN>60Normal>=60The [place] [facility] CenterComment on above:Performed By: #### PHOS, URIC, MG, CMP, DBIL, LIPID #### [facility] [address] [place] [address] Dr. Karla DiopGFR-NON AF RZKBDVZW68 mL/min/1.54q9Aujrwlhssk low>=60The [place] [facility] CenterComment on above:Performed By: #### PHOS, URIC, MG, CMP, DBIL, LIPID #### [facility] [address] [place] [address] Dr. Karla LagosGlobulin (S) [Mass/Vol]3.2 g/dLNormalThe [place] [facility] CenterComment on above:Performed By: #### PHOS, URIC, MG, CMP, DBIL, LIPID #### [facility] [address] [place] [address] Dr. Karla LagosGlucose [Mass/Vol]125 mg/dLCritically gbkx09-984Pfp [facility] CenterComment on above:Performed By: #### PHOS, URIC, MG, CMP, DBIL, LIPID #### [facility] [address] [place] [address] Dr. Yilan ChangPotassium [Moles/Vol]5.0 mmol/LNormal3.5-5.1The [facility] Comment on above:Performed By: #### PHOS, URIC, MG, CMP, DBIL, LIPID #### [facility] [address] [place] [address] Dr. Karla LagosProtein [Mass/Vol]7.3 g/dLNormal6.4-8.2The [facility] Comment on above:Performed By: #### PHOS, URIC, MG, CMP, DBIL, LIPID #### [facility] [address] [place] [address] Dr. Karla LagosSodium [Moles/Vol]141 mmol/PYnwqbe942-166Fyp [facility] Comment on above:Performed By: #### PHOS, URIC, MG, CMP, DBIL, LIPID #### [facility] [address] [place] [address] Dr. Karla LagosUrea nitrogen [Mass/Vol]24.0 mg/dLCritically high7.0-18.0The [place] [facility] CenterComment on above:Performed By: #### PHOS, URIC, MG, CMP, DBIL, LIPID #### [facility] [address] [place] [address] Dr. Karla Ellis nitrogen/Creatinine [Mass ratio]17.9 mg/mgNormalThe [place] [facility] CenterComment on above:Performed By: #### PHOS, URIC, MG, CMP, DBIL, LIPID #### [facility] [address] [place] [address] Dr. Karla LagosURIC ACID SERUMon [id number] [Mass/Vol]5.0 mg/dLNormal 3.5-7.2[facility] CenterComment on above:Performed By: #### PHOS, URIC, MG, CMP, DBIL, LIPID #### [facility] [address] [place] [address] Dr. Karla LagosFK506 (TACROLIMUS) WHOLE BLOODon [id number] (FK506), Blood8.0 ng/mLNormal2.0-20.0The [place] [facility] CenterComment on above:Result Comment: Trough (immediately following transplant) 15.0 . Trough (steady state, 2 weeks or more after transplant): 3.0 - 8.0 . Performed by LC-MS/MS technology.Performed By: #### PHOS, URIC, MG, CMP, DBIL, LIPID #### [facility] [address] [place] [address] Dr. Karla LagosBK VIRUS PCR QUANTon [id number] DNA QUANT PCR PLASMANegative NormalNegativeThe [place] [facility] CenterComment on above:Result Comment: No BK DNA detected. . The linear range of the assay is 22 - 100,000,000 IU/mL.Performed By: #### PHOS, URIC, MG, CMP, DBIL, LIPID #### [facility] [address] [place] [address] Dr. Karla LagosLog10 BKV DNA PlasmaNormalThe [place] [facility] CenterComment on above: Performed By: #### PHOS, URIC, MG, CMP, DBIL, LIPID #### [facility] [address] [place] [address] Dr. Karla LagosBILIRUBIN CONJUGATED (DIRECT)on [id number], CONJUGATED0.2 mg/dLNormal0.0-0.2The [place] [facility] CenterComment on above:Performed By: #### PHOS, URIC, MG, CMP, DBIL, LIPID #### [facility] [address] [place] [address] Dr. Karla CarvalhoC AUTO DIFFon [id number] #0.1 103/ulNormal0.0-0.1The [place] [facility] CenterComment on above:Performed By: #### PHOS, URIC, MG, CMP, DBIL, LIPID #### [facility] [address] [place] [address] Dr. Karla LagosBasophils/100 WBC (Bld)0.8 %Normal0.2-2.0The [facility] Comment on above:Performed By: #### PHOS, URIC, MG, CMP, DBIL, LIPID #### [facility] [address] [place] [address] Dr. Karla Gruber #0.1 103/ulNormal0.0-0.7The [place] [facility] CenterComment on above: Performed By: #### PHOS, URIC, MG, CMP, DBIL, LIPID #### [facility] [address] [place] [address] Dr. Karla Dioposinophils/100 WBC (Bld)1.7 %Normal0.9-7.0The [facility] Comment on above:Performed By: #### PHOS, URIC, MG, CMP, DBIL, LIPID #### [facility] [address] [place] [address] Dr. Karla Dioprythrocyte distribution width (RBC) [Ratio]14.1 %Zrounu73.0-15.0 The [place] [facility] CenterComment on above:Performed By: #### PHOS, URIC, MG, CMP, DBIL, LIPID #### [facility] [address] [place] [address] Dr. Karla LagosHematocrit (Bld) [Volume fraction]48.1 %Nbxgta35.0-54.0The [place] [facility] CenterComment on above:Performed By: #### PHOS, URIC, MG, CMP, DBIL, LIPID #### [facility] [address] [place] [address] Dr. Karla LagosHemoglobin (Bld) [Mass/Vol]16.0 g/bHNilctz43.0-18.0The [place] [facility] CenterComment on above:Performed By: #### PHOS, URIC, MG, CMP, DBIL, LIPID #### [facility] [address] [place] [address] Dr. Karla LagosIG #0.03 10e3/ulNormal0.00-0.03The [facility] Hospitalment on above:Performed By: #### PHOS, URIC, MG, CMP, DBIL, LIPID #### [facility] [address] [place] [address] Dr. Karla Youssef %0.5 %Normal0.0-0.5The [place] [facility] CenterComment on above: Performed By: #### PHOS, URIC, MG, CMP, DBIL, LIPID #### [facility] [address] [address] [address] Karla Gaming #1.0 103/ulCritically low1.2-3.8The [facility] Comment on above:Performed By: #### PHOS, URIC, MG, CMP, DBIL, LIPID #### [facility] [address] [address] [address] Karla Rodriguezhocytes/100 WBC (Bld)16.9 %Critically low20.5-60.0The [place] [facility] CenterComment on above:Performed By: #### PHOS, URIC, MG, CMP, DBIL, LIPID #### [facility] [address] [place] [address] Dr. Karla Lehman DIFF REQNONormalThe [place] [facility] CenterComment on above: Performed By: #### PHOS, URIC, MG, CMP, DBIL, LIPID #### [facility] [address] [place] [address] Dr. Karla Snider (RBC) [Entitic mass]31.1 wdGxdpfv62.9-34.0The [place] [facility] CenterComment on above:Performed By: #### PHOS, URIC, MG, CMP, DBIL, LIPID #### [facility] [address] [place] [address] Dr. Karla Snider (RBC) [Mass/Vol]33.3 g/cAWtgcyz94.9-35.2The [place] [facility] CenterComment on above:Performed By: #### PHOS, URIC, MG, CMP, DBIL, LIPID #### [facility] [address] [place] [address] Dr. Karla Snider (RBC) [Entitic vol]93.6 zOMchbmn40.0-94.0The [place] [facility] CenterComment on above:Performed By: #### PHOS, URIC, MG, CMP, DBIL, LIPID #### [facility] [address] [place] [address] Dr. Yilan ChangMONO #0.6 103/ulNormal0.3-0.8The [place] [facility] CenterComment on above:Performed By: #### PHOS, URIC, MG, CMP, DBIL, LIPID #### [facility] [address] [place] [address] Dr. Karla LagosMonocytes/100 WBC (Bld)10.1 %Normal1.7-12.0The [facility] Comment on above:Performed By: #### PHOS, URIC, MG, CMP, DBIL, LIPID #### [facility] [address] [place] [address] Dr. Karla Tejeda #4.2 103/ulNormal1.4-6.5The [place] [facility] CenterComment on above:Performed By: #### PHOS, URIC, MG, CMP, DBIL, LIPID #### [facility] [address] [place] [address] Dr. Karla Adrianutrophils/100 WBC (Bld)70.0 %Bgadmv31.0-75.0The [place] [facility] CenterComment on above:Performed By: #### PHOS, URIC, MG, CMP, DBIL, LIPID #### [facility] [address] [place] [address] Dr. Karla LagosPlatelet mean volume (Bld) [Entitic vol]10.2 fLNormal9.5-13.5The [place] [facility] CenterComment on above:Performed By: #### PHOS, URIC, MG, CMP, DBIL, LIPID #### [facility] [address] [place] [address] Dr. Karla LagosPLT226 103/zhCkjdpf915-377Xco [facility] CenterComment on above: Performed By: #### PHOS, URIC, MG, CMP, DBIL, LIPID #### [facility] [address] [place] [address] Dr. Karla LagosRBC5.14 106/ulNormal4.70-6.10The [place] [facility] CenterComment on above:Performed By: #### PHOS, URIC, MG, CMP, DBIL, LIPID #### [facility] [address] [address] [address] Karla LagosWBC6.0 103/ulNormal4.0-11.0The [facility] Hospitalment on above: Performed By: #### PHOS, URIC, MG, CMP, DBIL, LIPID #### [facility] [address] [address] [address] Karla LagosLIPID PROFILEon [id number]-HDL RATIO NORMSEE [facility] on above:Result Comment: 3.3 - 4.4 LOW RISK 4.4 - 7.1 AVERAGE RISK 7.1 - 11.0 MODERATE RISK >11.0 HIGH RISKPerformed By: #### PHOS, URIC, MG, CMP, DBIL, LIPID #### [facility] [address] [place] [address] Dr. Karla Bishopesterol [Mass/Vol]132 mg/dLNormal<=200The [facility] Comment on above:Performed By: #### PHOS, URIC, MG, CMP, DBIL, LIPID #### [facility] [address] [place] [address] Dr. Karla Bishopesterol in HDL [Mass/Vol]50 mg/yKPjrpva50-32Gyc [facility] on above:Performed By: #### PHOS, URIC, MG, CMP, DBIL, LIPID #### [facility] [address] [place] [address] Dr. Karla Bishopesterol in LDL [Mass/Vol]54.6 mg/dLNoGreene Memorial Hospital on above:Performed By: #### PHOS, URIC, MG, CMP, DBIL, LIPID #### [facility] [address] [place] [address] Dr. Karla Mueller.total/Cholesterol in HDL [Mass ratio]2.6 {ratio} NormalThe [facility] on above:Performed By: #### PHOS, URIC, MG, CMP, DBIL, LIPID #### [facility] [address] [place] [address] Dr. Karla LagosHDNaga NORMAL> or = 60 mg/dl - LOW CARDIOVASCULAR RISK <40 mg/dl - HIGH CARDIOVASCULAR RISKSt. Mary's Medical [facility], [place] CampusComment on above:Performed By: #### PHOS, URIC, MG, CMP, DBIL, LIPID #### [facility] [address] [place] [address] Dr. Karla Matute CALC NORMALSEE BELOWSt. Mary's Medical Center, [place]ont[place] CampusComment on above:Result Comment: <100 mg/dl OPTIMAL 100 - 129 mg/dl NEAR OR ABOVE OPTIMAL 130 - 159 mg/dl BORDERLINE HIGH 160 - 189 mg/dl HIGH >190 mg/dl VERY HIGH Performed By: #### PHOS, URIC, MG, CMP, DBIL, LIPID #### [facility] [address] [place] [address] Dr. Karla LagosTriglyceride [Mass/Vol]137 mg/dLNormal<=150[facility] Comment on above:Performed By: #### PHOS, URIC, MG, CMP, DBIL, LIPID #### [facility] [address] [place] [address] Dr. Karla ArguelloLDL CALC27.4 mg/dLSt. Mary's Medical [facility], [place] CampusComment on above: Performed By: #### PHOS, URIC, MG, CMP, DBIL, LIPID #### [facility] [address] [place] [address] Dr. Karla LagosMAGNESIUMon 61-89-7956Zzhdjagsl [Mass/Vol]1.5 mg/dLCritically low 1.8-2.4The [place] [facility] CenterComment on above:Performed By: #### PHOS, URIC, MG, CMP, DBIL, LIPID #### [facility] [address] [place] [address] Dr. Karla LagosPHOSPHORUSon 40-97-1058Tlafsuzqv [Mass/Vol]3.2 mg/dLNormal2.6-4.7 [facility] CenterComment on above:Performed By: #### PHOS, URIC, MG, CMP, DBIL, LIPID #### [facility] [address] [place] [address] Dr. Karla Marinelli 14(COMP METB)on 52-62-6230Ilbsfmj [Mass/Vol]4.1 g/dLNormal 3.4-5.0The [place] [facility] CenterComment on above:Performed By: #### PHOS, URIC, MG, CMP, DBIL, LIPID #### [facility] [address] [place] [address] Dr. Karla LagosAlbumin/Globulin [Mass ratio]1.4 {ratio}NormalThe [place] [facility] CenterComment on above:Performed By: #### PHOS, URIC, MG, CMP, DBIL, LIPID #### [facility] [address] [place] [address] Dr. Karla Maldonado [Catalytic activity/Vol]73 U/LGvkeri57-105Zyr [facility] CenterComment on above:Performed By: #### PHOS, URIC, MG, CMP, DBIL, LIPID #### [facility] [address] [place] [address] Dr. Karla Velasquez [Catalytic activity/Vol]27 U/IKduvjd99-68Gwa [facility] CenterComment on above:Performed By: #### PHOS, URIC, MG, CMP, DBIL, LIPID #### [facility] [address] [place] [address] Dr. Karla De La Vega gap [Moles/Vol]11.7 mmol/LNormalUniversity [facility] Comment on above:Performed By: #### PHOS, URIC, MG, CMP, DBIL, LIPID #### [facility] [address] [place] [address] Dr. Karla Chow [Catalytic activity/Vol]16 U/KLreswh86-42Hzp [facility] CenterComment on above:Performed By: #### PHOS, URIC, MG, CMP, DBIL, LIPID #### [facility] [address] [place] [address] Dr. Karla LagosBilirubin [Mass/Vol]0.8 mg/dLNormal0.2-1.0The [facility] Comment on above:Performed By: #### PHOS, URIC, MG, CMP, DBIL, LIPID #### [facility] [address] [place] [address] Dr. Karla LagosCalcium [Mass/Vol]9.1 mg/dLNormal8.5-10.1The [facility] Comment on above:Performed By: #### PHOS, URIC, MG, CMP, DBIL, LIPID #### [facility] [address] [place] [address] Dr. Karla LagosChloride [Moles/Vol]104 mmol/NIlplqi48-315Kdh [facility] Comment on above:Performed By: #### PHOS, URIC, MG, CMP, DBIL, LIPID #### [facility] [address] [place] [address] Dr. Karla LagosCO2 [Moles/Vol]29.4 mmol/CEmuenq61.0-32.0[facility] Comment on above:Performed By: #### PHOS, URIC, MG, CMP, DBIL, LIPID #### [facility] [address] [place] [address] Dr. Karla LagosCreatinine [Mass/Vol]1.27 mg/dLNormal0.70-1.30The [place] [facility] CenterComment on above:Performed By: #### PHOS, URIC, MG, CMP, DBIL, LIPID #### [facility] [address] [place] [address] Dr. Karla DiopGFR-AF ST LUCIAN>60Normal>=60The [place] [facility] CenterComment on above:Performed By: #### PHOS, URIC, MG, CMP, DBIL, LIPID #### [facility] [address] [place] [address] Dr. Karla DiopGFR-NON AF BFLODZVS53 mL/min/1.39p1Evyfxbrvrl low>=60The [place] [facility] CenterComment on above:Performed By: #### PHOS, URIC, MG, CMP, DBIL, LIPID #### [facility] [address] [place] [address] Dr. Karla LagosGlobulin (S) [Mass/Vol]2.9 g/dLNormalThe [place] [facility] CenterComment on above:Performed By: #### PHOS, URIC, MG, CMP, DBIL, LIPID #### [facility] [address] [address] [address] Karla LagosGlucose [Mass/Vol]113 mg/dLCritically wkap22-097Qxg [facility] CenterComment on above:Performed By: #### PHOS, URIC, MG, CMP, DBIL, LIPID #### [facility] [address] [place] [address] Dr. Karla LagosPotassium [Moles/Vol]4.1 mmol/LNormal3.5-5.1[facility] Comment on above:Performed By: #### PHOS, URIC, MG, CMP, DBIL, LIPID #### [facility] [address] [place] [address] Dr. Karla LagosProtein [Mass/Vol]7.0 g/dLNormal6.4-8.2[facility] Comment on above:Performed By: #### PHOS, URIC, MG, CMP, DBIL, LIPID #### [facility] [address] [place] [address] Dr. Karla LagosSodium [Moles/Vol]141 mmol/VAiywze620-953Qkq [facility] Comment on above:Performed By: #### PHOS, URIC, MG, CMP, DBIL, LIPID #### [facility] [address] [place] [address] Dr. Karla LagosUrea nitrogen [Mass/Vol]18.0 mg/dLNormal7.0-18.0The [place] [facility] CenterComment on above:Performed By: #### PHOS, URIC, MG, CMP, DBIL, LIPID #### [facility] [address] [place] [address] Dr. Karla LagosUrea nitrogen/Creatinine [Mass ratio]14.2 mg/mgNoalThe [place] [facility] CenterComment on above:Performed By: #### PHOS, URIC, MG, CMP, DBIL, LIPID #### [facility] [address] [place] [address] Dr. Karla LagosURIC ACID SERUMon [id number] [Mass/Vol]6.0 mg/dLNormal 3.5-7.2The [place] [facility] CenterComment on above:Performed By: #### PHOS, URIC, MG, CMP, DBIL, LIPID #### [facility] [address] [place], [place] [address] Dr. Karla LagosXR Chest 2 Views*on [id number] Chest 2 Views*FINDINGS: Comparison made with prior examination of September 24, 2020. Improved aeration with no persistent parenchymal consolidation. No pleural or pericardial effusions. Normal cardiac silhouette size. Sternotomy wires. Left central cardiac pacemaker. IMPRESSION: 1. Minimal residual post-inflammatory sequela. Report reported and signed by Anjum Remy on 01/13/2022 [id number] [facility] SpecialistECHOCARDIO M/2D COMPLETEon [id number] M/2D COMPLETEPatient: VISHAL DUKE Exam Date: 09/28/2021 : 1960 Gender:M Ordering : DR FEDERICO CHESTER M.D. Admission #: [id number] Family : DR ROSA M GONZALES M.D. Order #: [id number] CLICK HERE TO VIEW EXAM ECHOCARDIOGRAM REPORT [...] Area(A4C): 20.50 cm2 Left Atrium Systolic Volume(A2C): 86090 mm3 Left Atrium Systolic Volume(A4C): 66429 mm3 Mitral Valve MV E to A [...] by: Zuly Frazier M.D. on 09/28/2021 at 19:38[facility] CampusBilirubin, Directon [id number]<0.2NormalNorthern Southern Hills Medical Center SpecialistComment on above:Result Comment: Reference range change 03/03/2017. Prior reference range 0.1-0.3 mg/dL.Performed By: #### CBCAD, MG, URIC, LIPD, PHOS, CMP, DBIL #### [facility] [address], [place] [id number] Blood Count with Auto Diffon [id number] (Bld) [#/Vol]0.06 10*3/uLNormal0.00-0.20NoEast [place] [facility] SpecialistComment on above:Performed By: #### CBCAD, MG, URIC, LIPD, PHOS, CMP, DBIL #### [facility] [address], [place] [id number]/100 WBC (Bld)1.0 %NormalRegency Hospital ToledoComapex medical center on above:Performed By: #### CBCAD, MG, URIC, LIPD, PHOS, CMP, DBIL #### [facility] [address], [place] [id number] (Bld) [#/Vol]0.09 10*3/uLNormal0.02-0.50NoOhioHealth Grady Memorial HospitalComment on above:Performed By: #### CBCAD, MG, URIC, LIPD, PHOS, CMP, DBIL #### [facility] [address], [place] [id number]/100 WBC (Bld)1.5 %NormalNoEast [place] [facility] Hospital SpecialistComment on above:Performed By: #### CBCAD, MG, URIC, LIPD, PHOS, CMP, DBIL #### [facility] [address], [place] [id number] distribution width (RBC) [Ratio]14.1 %Normal 11.0-15.0[facility]edoComapex medical center on above:Performed By: #### CBCAD, MG, URIC, LIPD, PHOS, CMP, DBIL #### [facility] [address], [place] [id number] (Bld) [Volume fraction]51.6 %High38.5-50.0[facility] SpecialistComment on above:Performed By: #### CBCAD, MG, URIC, LIPD, PHOS, CMP, DBIL #### [facility] [address], [place] [id number] (Bld) [Mass/Vol]16.5 g/lWZgnkdf99.0-17.1NortherUniversity Hospitals Health System SpecialistComment on above:Performed By: #### CBCAD, MG, URIC, LIPD, PHOS, CMP, DBIL #### [facility] [address], [place] [id number] (Bld) [#/Vol]1.0 10*3/uLNormal0.9-3.9[facility] SpecialistComment on above:Performed By: #### CBCAD, MG, URIC, LIPD, PHOS, CMP, DBIL #### [facility] [address], [place] [id number]/100 WBC (Bld)16.3 %NormalAshtabula County Medical Center SpecialistComment on above:Performed By: #### CBCAD, MG, URIC, LIPD, PHOS, CMP, DBIL #### [facility] [address], [place] [id number] (RBC) [Entitic mass]29.9 shQyqlxm25.0-33.0[facility] SpecialistComment on above:Performed By: #### CBCAD, MG, URIC, LIPD, PHOS, CMP, DBIL #### [facility] [address], [place] [id number] (RBC) [Mass/Vol]32.0 g/aNKbvjgd70.0-36.0NoEast [place] [facility] SpecialistComment on above:Performed By: #### CBCAD, MG, URIC, LIPD, PHOS, CMP, DBIL #### [facility] [address], [place] [id number] (RBC) [Entitic vol]94 kPCwljof41-440Pgkcgmlz [place] [facility] SpecialistComment on above:Performed By: #### CBCAD, MG, URIC, LIPD, PHOS, CMP, DBIL #### [facility] [address], [place] [id number] (Bld) [#/Vol]0.7 10*3/uLNormal0.2-0.9[facility] SpecialistComment on above:Performed By: #### CBCAD, MG, URIC, LIPD, PHOS, CMP, DBIL #### [facility] [address], [place] [id number]/100 WBC (Bld)11.1 %NormalAshtabula County Medical Center SpecialistComment on above:Performed By: #### CBCAD, MG, URIC, LIPD, PHOS, CMP, DBIL #### [facility] [address], [place] [id number] (Bld) [#/Vol]4.2 10*3/uLNormal1.5-7.8NoEast [facility] SpecialistComment on above:Performed By: #### CBCAD, MG, URIC, LIPD, PHOS, CMP, DBIL #### [facility] [address] [place], [place] [id number]/100 WBC (Bld)69.8 %NormalAshtabula [facility] SpecialistComment on above:Performed By: #### CBCAD, MG, URIC, LIPD, PHOS, CMP, DBIL #### [facility] [address] [place], [place] [id number] mean volume (Bld) [Entitic vol]10.80 fLNormal 7.50-12.50NoEast [facility] SpecialistComment on above:Performed By: #### CBCAD, MG, URIC, LIPD, PHOS, CMP, DBIL #### [facility] [address] [place], [place] [id number] (Bld) [#/Vol]247 10*3/zKVevtqy398-360Ulnuavop [facility] SpecialistComment on above:Performed By: #### CBCAD, MG, URIC, LIPD, PHOS, CMP, DBIL #### [facility] [address] [place], [place] [id number] (Bld) [#/Vol]5.52 10*6/uLNormal4.20-5.80NoEast [facility] SpecialistComment on above:Performed By: #### CBCAD, MG, URIC, LIPD, PHOS, CMP, DBIL #### [facility] [address] [place], [place] [id number]-RL05.9 wNKyehmp30.0-50.0NoEast [facility] Specialist Comment on above:Performed By: #### CBCAD, MG, URIC, LIPD, PHOS, CMP, DBIL #### [facility] [address] [place], [place] [id number] (Bld) [#/Vol]6.0 10*3/uLNormal3.8-11.0NoEast [facility] SpecialistComment on above:Performed By: #### CBCAD, MG, URIC, LIPD, PHOS, CMP, DBIL #### [facility] [address] [place], [place] [id number] Metabolic Panelon [id number] [Mass/Vol] 5.0 g/dLNormal3.6-5.1[facility] SpecialistComment on above:Performed By: #### CBCAD, MG, URIC, LIPD, PHOS, CMP, DBIL #### [facility] [address] [place], [place] [id number]/Globulin [Mass ratio]2.8 {ratio}High1.0-2.5NoEast [facility] SpecialistComment on above:Performed By: #### CBCAD, MG, URIC, LIPD, PHOS, CMP, DBIL #### [facility] [address] [place], [place] [id number] [Catalytic activity/Vol]79 U/NYlbdza76-186Vofodmjl [facility] SpecialistComment on above:Performed By: #### CBCAD, MG, URIC, LIPD, PHOS, CMP, DBIL #### [facility] [address] [place], [place] [id number] [Catalytic activity/Vol]29 U/LNormal9-46NoEast [facility] SpecialistComment on above:Result Comment: 03/17/2021 Female reference range changed.Performed By: #### CBCAD, MG, URIC, LIPD, PHOS, CMP, DBIL #### [facility] [address] [place], [place] [id number] gap [Moles/Vol]23 mmol/AEjjk42-00PvliaqzbEast [facility] SpecialistComment on above:Result Comment: Effective 04/22/2019 reference range changed.Performed By: #### CBCAD, MG, URIC, LIPD, PHOS, CMP, DBIL #### [facility] [address] [place], [place] [id number] [Catalytic activity/Vol]25 U/JAwmyvd47-67Cmothvle [facility] SpecialistComment on above:Performed By: #### CBCAD, MG, URIC, LIPD, PHOS, CMP, DBIL #### [facility] [address] [place], [place] [id number] [Mass/Vol]0.66 mg/dLNormal0.30-1.20NoEast [facility] SpecialistComment on above:Performed By: #### CBCAD, MG, URIC, LIPD, PHOS, CMP, DBIL #### [facility] [address] [place], [place] [id number]/CREA18 RatioNormal6-22NoEast [facility] Specialist Comment on above:Performed By: #### CBCAD, MG, URIC, LIPD, PHOS, CMP, DBIL #### [facility] [address] [place], [place] [id number] [Mass/Vol]10.0 mg/dLNormal8.6-10.2[facility]herUniversity [facility] SpecialistComment on above:Performed By: #### CBCAD, MG, URIC, LIPD, PHOS, CMP, DBIL #### [facility] [address] [place], [place] [id number] [Moles/Vol]105 mmol/GTtvjsl42-210Fnoykbpv [facility] SpecialistComment on above:Performed By: #### CBCAD, MG, URIC, LIPD, PHOS, CMP, DBIL #### [facility] [address] [place], [place] [id number] [Moles/Vol]20 mmol/RYjrynf86-66Nofkdqwt [facility] SpecialistComment on above:Performed By: #### CBCAD, MG, URIC, LIPD, PHOS, CMP, DBIL #### [facility] [address] [place], [place] [id number] [Mass/Vol]1.2 mg/dLNormal0.7-1.4NoEast [facility] SpecialistComment on above:Performed By: #### CBCAD, MG, URIC, LIPD, PHOS, CMP, DBIL #### [facility] [address] [place], [place] [id number] mL/min/1.36v5Zmmafr>60NoEast [place] [facility] SpecialistComment on above:Performed By: #### CBCAD, MG, URIC, LIPD, PHOS, CMP, DBIL #### [facility] [address] [place], [place] [id number] mL/min/1.26s0Osu>60[facility] Specialist Comment on above:Performed By: #### CBCAD, MG, URIC, LIPD, PHOS, CMP, DBIL #### [facility] [address] [place], [place] [id number] (S) [Mass/Vol]1.8 g/dLLow1.9-3.7NoEast [facility] SpecialistComment on above:Performed By: #### CBCAD, MG, URIC, LIPD, PHOS, CMP, DBIL #### [facility] [address] [place], [place] [id number] [Mass/Vol]121 mg/aTOwng52-80Qicobwbo [facility] SpecialistComment on above:Result Comment: For FASTING Glucose --- ADA reference ranges: Normal 65-99 mg/dl Prediabetes 100-125 Diabetes >/= 126Performed By: #### CBCAD, MG, URIC, LIPD, PHOS, CMP, DBIL #### [facility] [address] [place], [place] [id number] [Moles/Vol]4.5 mmol/LNormal3.5-5.5NoEast [place] [facility] SpecialistComment on above:Performed By: #### CBCAD, MG, URIC, LIPD, PHOS, CMP, DBIL #### [facility] [address] [place], [place] [id number] [Mass/Vol]6.8 g/dLNormal6.1-8.1N[facility]herUniversity [facility]als [facility] System SpecialistComment on above:Performed By: #### CBCAD, MG, URIC, LIPD, PHOS, CMP, DBIL #### [facility] [address] [place], [place] [id number] [Moles/Vol]143 mmol/DDyzjst772-946Ylfswwio [facility] SpecialistComment on above:Performed By: #### CBCAD, MG, URIC, LIPD, PHOS, CMP, DBIL #### [facility] [address] [place], [place] [id number] nitrogen [Mass/Vol]23 mg/dLNormal7-25NoEast [place] [facility] SpecialistComment on above:Performed By: #### CBCAD, MG, URIC, LIPD, PHOS, CMP, DBIL #### [facility] [address] [place], [place] [id number] Panelon 32-30-4453Cgscsqdkszd [Mass/Vol]131 mg/dLNormal 125-200NoEast [facility] SpecialistComment on above:Result Comment: Low risk < 200mg/dL Borderline risk 201-239 mg/dl High risk > or equal to 240Performed By: #### CBCAD, MG, URIC, LIPD, PHOS, CMP, DBIL #### [facility] [address] [place], [place] [id number] in HDL [Mass/Vol]43 mg/dLNormal>40NoEast [facility] SpecialistComment on above:Result Comment: High Cardiovascular Risk HDL <40 mg/dL Low Cardiovascular Risk HDL > or equal to 60 mg/dlPerformed By: #### CBCAD, MG, URIC, LIPD, PHOS, CMP, DBIL #### [facility] [address] [place], [place] [id number] in LDL [Mass/Vol]52 mg/dLNormalNoEast [facility] SpecialistComment on above:Result Comment: LDL ATP III CLASSIFICATION LDL less than 100 mg/dl Optimal LDL 100-129 mg/dl Near or above optimal LDL 130-159 Borderline high LDL 160-189 High LDL greater than 189 mg/dl Very HighPerformed By: #### CBCAD, MG, URIC, LIPD, PHOS, CMP, DBIL #### [facility] [address] [place], [place] [id number] in VLDL [Mass/Vol]36 mg/dLNormalNoEast [facility] SpecialistComment on above:Performed By: #### CBCAD, MG, URIC, LIPD, PHOS, CMP, DBIL #### [facility] [address] [place], [place] [id number].total/Cholesterol in HDL [Mass ratio]3 {ratio} NormalNortbarrow neurological instituten [facility] SpecialistComment on above:Performed By: #### CBCAD, MG, URIC, LIPD, PHOS, CMP, DBIL #### [facility] [address] [place], [place] [id number] [Mass/Vol]180 mg/rUEixx01-865Lbkcpzbu [facility] SpecialistComment on above:Result Comment: TRIG ATPIII CLASSIFICATIONS TRIG less than 150 mg/dl Normal TRIG 150-199 mg/dl Borderline High TRIG 200-500 mg/dl High TRIG greather than 500 mg/dl Very HighPerformed By: #### CBCAD, MG, URIC, LIPD, PHOS, CMP, DBIL #### [facility] [address] [place], [place] [id number] 34-81-7246Leehvhjvi [Mass/Vol]1.9 mg/dLNormal 1.5-2.3[facility] SpecialistComment on above:Performed By: #### CBCAD, MG, URIC, LIPD, PHOS, CMP, DBIL #### [facility] [address] [place], [place] [id number] 32-58-4720Huqytxcvg [Mass/Vol]3.6 mg/dLNormal 2.2-4.4NoEast [place] [facility] SpecialistComment on above:Performed By: #### CBCAD, MG, URIC, LIPD, PHOS, CMP, DBIL #### [facility] [address] [place], [place] [id number] Acidon 78-79-1910YADY6.5 mg/dLNormal4.0-8.0[facility] SpecialistComment on above:Result Comment: Reference range change 03/03/2017. Prior reference range F 2.4-5.7mg/dL. M 3.4-7.0 mg/dL.Performed By: #### CBCAD, MG, URIC, LIPD, PHOS, CMP, DBIL #### [facility] [address] [place], [place] [id number], Directon 50-32-0912RKDC<0.2NormalRegency Hospital ToledoComment on above:Result Comment: Reference range change 03/03/2017. Prior reference range 0.1-0.3 mg/dL.Performed By: #### CBCAD, MG, URIC, LIPD, PHOS, CMP, DBIL #### [facility] [address] [place], [place] [id number] Blood Count with Auto Diffon 73-33-1754Wmgafnsui (Bld) [#/Vol]0.06 10*3/uLNormal0.00-0.20NoEast [place] [facility] SpecialistComment on above:Performed By: #### CBCAD, MG, URIC, LIPD, PHOS, CMP, DBIL #### [facility] [address] [place], [place] [id number]/100 WBC (Bld)1.1 %NormalAshtabula [facility] Medical Center SpecialistComment on above:Performed By: #### CBCAD, MG, URIC, LIPD, PHOS, CMP, DBIL #### [facility] [address] [place], [place] [id number] (Bld) [#/Vol]0.10 10*3/uLNormal0.02-0.50NoEast [facility] SpecialistComment on above:Performed By: #### CBCAD, MG, URIC, LIPD, PHOS, CMP, DBIL #### [facility] [address] [place], [place] [id number]/100 WBC (Bld)1.8 %NormalAshtabula [facility] Medical Center SpecialistComment on above:Performed By: #### CBCAD, MG, URIC, LIPD, PHOS, CMP, DBIL #### [facility] [address] [place], [place] [id number] distribution width (RBC) [Ratio]14.5 %Normal 11.0-15.0NoEast [facility] SpecialistComment on above:Performed By: #### CBCAD, MG, URIC, LIPD, PHOS, CMP, DBIL #### [facility] [address] [place], [place] [id number] (Bld) [Volume fraction]50.4 %High38.5-50.0NoEast [place] [facility] SpecialistComment on above:Performed By: #### CBCAD, MG, URIC, LIPD, PHOS, CMP, DBIL #### [facility] [address] [place], [place] [id number] (Bld) [Mass/Vol]16.4 g/yBRmjzyb97.0-17.1[facility] SpecialistComment on above:Performed By: #### CBCAD, MG, URIC, LIPD, PHOS, CMP, DBIL #### [facility] [address] [place], [place] [id number] (Bld) [#/Vol]0.9 10*3/uLNormal0.9-3.9NoEast [facility] SpecialistComment on above:Performed By: #### CBCAD, MG, URIC, LIPD, PHOS, CMP, DBIL #### [facility] [address] [place], [place] [id number]/100 WBC (Bld)15.2 %NormalNortUC Health SpecialistComment on above:Performed By: #### CBCAD, MG, URIC, LIPD, PHOS, CMP, DBIL #### [facility] [address] [place], [place] [id number] (RBC) [Entitic mass]30.5 doWgjvym38.0-33.0NoEast [facility] SpecialistComment on above:Performed By: #### CBCAD, MG, URIC, LIPD, PHOS, CMP, DBIL #### [facility] [address] [place], [place] [id number] (RBC) [Mass/Vol]32.5 g/pWIbzgtl06.0-36.0NoEast [facility] SpecialistComment on above:Performed By: #### CBCAD, MG, URIC, LIPD, PHOS, CMP, DBIL #### [facility] [address] [place], [place] [id number] (RBC) [Entitic vol]94 iYRbspiz41-926Mbjyzvms [facility] SpecialistComment on above:Performed By: #### CBCAD, MG, URIC, LIPD, PHOS, CMP, DBIL #### [facility] [address] [place], [place] [id number] (Bld) [#/Vol]0.7 10*3/uLNormal0.2-0.9NoEast [facility] SpecialistComment on above:Performed By: #### CBCAD, MG, URIC, LIPD, PHOS, CMP, DBIL #### [facility] [address] [place], [place] [id number]/100 WBC (Bld)12.7 %NormalNoEast [facility] SpecialistComment on above:Performed By: #### CBCAD, MG, URIC, LIPD, PHOS, CMP, DBIL #### [facility] [address] [place], [place] [id number] (Bld) [#/Vol]3.9 10*3/uLNormal1.5-7.8NortUC Health SpecialistComment on above:Performed By: #### CBCAD, MG, URIC, LIPD, PHOS, CMP, DBIL #### [facility] [address] [place], [place] [id number]/100 WBC (Bld)68.7 %NormalNoEast [facility] SpecialistComment on above:Performed By: #### CBCAD, MG, URIC, LIPD, PHOS, CMP, DBIL #### [facility] [address] [place], [place] [id number] mean volume (Bld) [Entitic vol]11.20 fLNormal 7.50-12.50NoEast [facility] SpecialistComment on above:Performed By: #### CBCAD, MG, URIC, LIPD, PHOS, CMP, DBIL #### [facility] [address] [place], [place] [id number] (Bld) [#/Vol]230 10*3/bPWtjrcv893-555Ajtztkbx [facility] SpecialistComment on above:Performed By: #### CBCAD, MG, URIC, LIPD, PHOS, CMP, DBIL #### [facility] [address] [place], [place] [id number] (Bld) [#/Vol]5.38 10*6/uLNormal4.20-5.80NortUC Health SpecialistComment on above:Performed By: #### CBCAD, MG, URIC, LIPD, PHOS, CMP, DBIL #### [facility] [address] [place], [place] [id number]-YJ83.1 tPIabbnn56.0-50.0NoEast [facility] Specialist Comment on above:Performed By: #### CBCAD, MG, URIC, LIPD, PHOS, CMP, DBIL #### [facility] [address] [place], [place] [id number] (Bld) [#/Vol]5.6 10*3/uLNormal3.8-11.0NoEast [facility] SpecialistComment on above:Performed By: #### CBCAD, MG, URIC, LIPD, PHOS, CMP, DBIL #### [facility] [address] [place], [place] [id number] Metabolic Panelon 64-59-5024Ruhjpxm [Mass/Vol] 5.0 g/dLNormal3.6-5.1[facility]University [facility] SpecialistComment on above:Performed By: #### CBCAD, MG, URIC, LIPD, PHOS, CMP, DBIL #### [facility] [address] [place], [place] [id number]/Globulin [Mass ratio]2.6 {ratio}High1.0-2.5[facility]Com[facility] on above:Performed By: #### CBCAD, MG, URIC, LIPD, PHOS, CMP, DBIL #### [facility] [address] [place], [place] [id number] [Catalytic activity/Vol]75 U/FHzcikb32-735Dohulcok [facility] SpecialistComment on above:Performed By: #### CBCAD, MG, URIC, LIPD, PHOS, CMP, DBIL #### [facility] [address] [place], [place] [id number] [Catalytic activity/Vol]30 U/LNormal9-46NoEast [facility] SpecialistComment on above:Result Comment: 03/17/2021 Female reference range changed.Performed By: #### CBCAD, MG, URIC, LIPD, PHOS, CMP, DBIL #### [facility] [address] [place], [place] [id number] gap [Moles/Vol]18 mmol/ZHsblqw38-04Vxbkvghh [facility] SpecialistComment on above:Result Comment: Effective 04/22/2019 reference range changed.Performed By: #### CBCAD, MG, URIC, LIPD, PHOS, CMP, DBIL #### [facility] [address] [place], [place] [id number] [Catalytic activity/Vol]26 U/GVocxfi66-22Rcnxcrqt [facility] SpecialistComment on above:Performed By: #### CBCAD, MG, URIC, LIPD, PHOS, CMP, DBIL #### [facility] [address] [place], [place] [id number] [Mass/Vol]0.67 mg/dLNormal0.30-1.20NoEast [facility] SpecialistComment on above:Performed By: #### CBCAD, MG, URIC, LIPD, PHOS, CMP, DBIL #### [facility] [address] [place], [place] [id number]/CREA19 RatioNormal6-22NoEast [facility] Specialist Comment on above:Performed By: #### CBCAD, MG, URIC, LIPD, PHOS, CMP, DBIL #### [facility] [address] [place], [place] [id number] [Mass/Vol]9.9 mg/dLNormal8.6-10.2N[facility]herDay[facility] Hospital [facility] SpecialistComment on above:Performed By: #### CBCAD, MG, URIC, LIPD, PHOS, CMP, DBIL #### [facility] [address] [place], [place] [id number] [Moles/Vol]103 mmol/RSidivh33-516Qauutgra [facility] SpecialistComment on above:Performed By: #### CBCAD, MG, URIC, LIPD, PHOS, CMP, DBIL #### [facility] [address] [place], [place] [id number] [Moles/Vol]25 mmol/VZoneem24-37Znbizknr [facility] SpecialistComment on above:Performed By: #### CBCAD, MG, URIC, LIPD, PHOS, CMP, DBIL #### [facility] [address] [place], [place] [id number] [Mass/Vol]1.1 mg/dLNormal0.7-1.4NoEast [facility] SpecialistComment on above:Performed By: #### CBCAD, MG, URIC, LIPD, PHOS, CMP, DBIL #### [facility] [address] [place], [place] [id number] mL/min/1.79n7Ilcwuy>60NortUC Health SpecialistComment on above:Performed By: #### CBCAD, MG, URIC, LIPD, PHOS, CMP, DBIL #### [facility] [address] [place], [place] [id number] mL/min/1.56r5Cpusrn>60N[facility]UC [facility] SpecialistComment on above:Performed By: #### CBCAD, MG, URIC, LIPD, PHOS, CMP, DBIL #### [facility] [address] [place], [place] [id number] (S) [Mass/Vol]1.9 g/dLNormal1.9-3.7NoEast [facility] SpecialistComment on above:Performed By: #### CBCAD, MG, URIC, LIPD, PHOS, CMP, DBIL #### [facility] [address] [place], [place] [id number] [Mass/Vol]125 mg/iWCfka20-14Ikpnssle [facility] SpecialistComment on above:Result Comment: For FASTING Glucose --- ADA reference ranges: Normal 65-99 mg/dl Prediabetes 100-125 Diabetes >/= 126Performed By: #### CBCAD, MG, URIC, LIPD, PHOS, CMP, DBIL #### [facility] [address] [place], [place] [id number] [Moles/Vol]4.2 mmol/LNormal3.5-5.5NortUC Health SpecialistComment on above:Performed By: #### CBCAD, MG, URIC, LIPD, PHOS, CMP, DBIL #### [facility] [address] [place], [place] [id number] [Mass/Vol]6.9 g/dLNormal6.1-8.1N[facility]herUniversity Hospitals Health System SpecialistComment on above:Performed By: #### CBCAD, MG, URIC, LIPD, PHOS, CMP, DBIL #### [facility] [address] [place], [place] [id number] [Moles/Vol]141 mmol/NNzdpxz569-809Gtntewzq [facility] SpecialistComment on above:Performed By: #### CBCAD, MG, URIC, LIPD, PHOS, CMP, DBIL #### [facility] [address] [place], [place] [id number] nitrogen [Mass/Vol]22 mg/dLNormal7-25NoEast [facility] SpecialistComment on above:Performed By: #### CBCAD, MG, URIC, LIPD, PHOS, CMP, DBIL #### [facility] [address] [place], [place] [id number] A1Con 67-50-6456CPX095.11NormalNoEast [facility] SpecialistComment on above:Performed By: #### CBCAD, MG, URIC, LIPD, PHOS, CMP, DBIL #### [facility] [address] [place], [place] [id number] (Bld) [Mass fraction]6.3 %High4.0-6.0[facility] ToledoComment on above:Performed By: #### CBCAD, MG, URIC, LIPD, PHOS, CMP, DBIL #### [facility] [address] [place], [place] [id number] Panelon 38-95-9092Nbskjsruhzt [Mass/Vol]110 mg/dLLow 125-200NoOhioHealth Grady Memorial HospitalComment on above:Result Comment: Low risk < 200mg/dL Borderline risk 201-239 mg/dl High risk > or equal to 240Performed By: #### CBCAD, MG, URIC, LIPD, PHOS, CMP, DBIL #### [facility] [address] [place], [place] [id number] in HDL [Mass/Vol]38 mg/dLLow>40NoEast [facility] SpecialistComment on above:Result Comment: High Cardiovascular Risk HDL <40 mg/dL Low Cardiovascular Risk HDL > or equal to 60 mg/dlPerformed By: #### CBCAD, MG, URIC, LIPD, PHOS, CMP, DBIL #### [facility] [address] [place], [place] [id number] in LDL [Mass/Vol]46 mg/dLNormalNoEast [facility] SpecialistComment on above:Result Comment: LDL ATP III CLASSIFICATION LDL less than 100 mg/dl Optimal LDL 100-129 mg/dl Near or above optimal LDL 130-159 Borderline high LDL 160-189 High LDL greater than 189 mg/dl Very HighPerformed By: #### CBCAD, MG, URIC, LIPD, PHOS, CMP, DBIL #### [facility] [address] [place], [place] [id number] in VLDL [Mass/Vol]26 mg/dLNormalNoEast [facility] SpecialistComment on above:Performed By: #### CBCAD, MG, URIC, LIPD, PHOS, CMP, DBIL #### [facility] [address] [place], [place] [id number].total/Cholesterol in HDL [Mass ratio]3 {ratio} NormalNortbarrow neurological instituten [facility] SpecialistComment on above:Performed By: #### CBCAD, MG, URIC, LIPD, PHOS, CMP, DBIL #### [facility] [address] [place], [place] [id number] [Mass/Vol]131 mg/mYQtmckg84-420Chriblpr [facility] SpecialistComment on above:Result Comment: TRIG ATPIII CLASSIFICATIONS TRIG less than 150 mg/dl Normal TRIG 150-199 mg/dl Borderline High TRIG 200-500 mg/dl High TRIG greather than 500 mg/dl Very HighPerformed By: #### CBCAD, MG, URIC, LIPD, PHOS, CMP, DBIL #### [facility] [address] [place], [place] [id number] 71-27-8086Pksznjase [Mass/Vol]2.0 mg/dLNormal 1.5-2.3Nortbarrow neurological instituten [facility] SpecialistComment on above:Performed By: #### CBCAD, MG, URIC, LIPD, PHOS, CMP, DBIL #### [facility] [address] [place], [place] [id number] 19-55-7610Wpvhfwafh [Mass/Vol]3.5 mg/dLNormal 2.2-4.4NoEast [facility] SpecialistComment on above:Performed By: #### CBCAD, MG, URIC, LIPD, PHOS, CMP, DBIL #### [facility] [address] [place], [place] [id number] Acidon 23-12-7551BMZQ7.6 mg/dLNormal4.0-8.0NoEast [facility] SpecialistComment on above:Result Comment: Reference range change 03/03/2017. Prior reference range F 2.4-5.7mg/dL. M 3.4-7.0 mg/dL.Performed By: #### CBCAD, MG, URIC, LIPD, PHOS, CMP, DBIL #### [facility] [address] [place], [place] [id number], Directon 20-75-3303THZS<0.2NormalNoOhioHealth Grady Memorial HospitalComment on above:Result Comment: Reference range change 03/03/2017. Prior reference range 0.1-0.3 mg/dL.Performed By: #### CBCAD, MG, URIC, LIPD, PHOS, CMP, DBIL #### [facility] [address] [place], [place] [id number] Blood Count with Auto Diffon 35-83-7410Smppscvkl (Bld) [#/Vol]0.07 10*3/uLNormal0.00-0.20NoOhioHealth Grady Memorial HospitalComment on above:Performed By: #### CBCAD, MG, URIC, LIPD, PHOS, CMP, DBIL #### [facility] [address] [place], [place] [id number]/100 WBC (Bld)1.1 %NormalNoOhioHealth Grady Memorial HospitalComment on above:Performed By: #### CBCAD, MG, URIC, LIPD, PHOS, CMP, DBIL #### [facility] [address] [place], [place] [id number] (Bld) [#/Vol]0.15 10*3/uLNormal0.02-0.50[facility] SpecialistComment on above:Performed By: #### CBCAD, MG, URIC, LIPD, PHOS, CMP, DBIL #### [facility] [address] [place], [place] [id number]/100 WBC (Bld)2.4 %NormalAshtabula [facility] Center SpecialistComment on above:Performed By: #### CBCAD, MG, URIC, LIPD, PHOS, CMP, DBIL #### [facility] [address] [place], [place] [id number] distribution width (RBC) [Ratio]14.0 %Normal 11.0-15.0[facility] SpecialistComment on above:Performed By: #### CBCAD, MG, URIC, LIPD, PHOS, CMP, DBIL #### [facility] [address] [place], [place] [id number] (Bld) [Volume fraction]50.3 %High38.5-50.0NoEast [facility] SpecialistComment on above:Performed By: #### CBCAD, MG, URIC, LIPD, PHOS, CMP, DBIL #### [facility] [address] [place], [place] [id number] (Bld) [Mass/Vol]16.5 g/rASahrge56.0-17.1NortherUniversity Hospitals Health System SpecialistComment on above:Performed By: #### CBCAD, MG, URIC, LIPD, PHOS, CMP, DBIL #### [facility] [address] [place], [place] [id number] (Bld) [#/Vol]0.9 10*3/uLNormal0.9-3.9[facility] SpecialistComment on above:Performed By: #### CBCAD, MG, URIC, LIPD, PHOS, CMP, DBIL #### [facility] [address] [place], [place] [id number]/100 WBC (Bld)13.4 %NormalNoEast [facility] SpecialistComment on above:Performed By: #### CBCAD, MG, URIC, LIPD, PHOS, CMP, DBIL #### [facility] [address], [place] [id number] (RBC) [Entitic mass]29.9 orVqwwfb48.0-33.0NoEast [facility] SpecialistComment on above:Performed By: #### CBCAD, MG, URIC, LIPD, PHOS, CMP, DBIL #### [facility] [address] [place], [place] [id number] (RBC) [Mass/Vol]32.8 g/hSGjegfm27.0-36.0[facility] SpecialistComment on above:Performed By: #### CBCAD, MG, URIC, LIPD, PHOS, CMP, DBIL #### [facility] [address] [place], [place] [id number] (RBC) [Entitic vol]91 rBTktsum76-269Rfqytywd [facility] SpecialistComment on above:Performed By: #### CBCAD, MG, URIC, LIPD, PHOS, CMP, DBIL #### [facility] [address] [place], [place] [id number] (Bld) [#/Vol]0.5 10*3/uLNormal0.2-0.9NoEast [facility] SpecialistComment on above:Performed By: #### CBCAD, MG, URIC, LIPD, PHOS, CMP, DBIL #### [facility] [address] [place], [place] [id number]/100 WBC (Bld)8.5 %NormalNoEast [facility] SpecialistComment on above:Performed By: #### CBCAD, MG, URIC, LIPD, PHOS, CMP, DBIL #### [facility] [address] [place], [place] [id number] (Bld) [#/Vol]4.7 10*3/uLNormal1.5-7.8NoEast [facility] SpecialistComment on above:Performed By: #### CBCAD, MG, URIC, LIPD, PHOS, CMP, DBIL #### [facility] [address] [place], [place] [id number]/100 WBC (Bld)73.8 %NormalNoEast [facility] SpecialistComment on above:Performed By: #### CBCAD, MG, URIC, LIPD, PHOS, CMP, DBIL #### [facility] [address], [place] [id number] mean volume (Bld) [Entitic vol]10.40 fLNormal 7.50-12.50NoEast [facility] SpecialistComment on above:Performed By: #### CBCAD, MG, URIC, LIPD, PHOS, CMP, DBIL #### [facility] [address] [place], [place] [id number] (Bld) [#/Vol]266 10*3/qLVdhzqf542-730Mdhgjhxa [facility] SpecialistComment on above:Performed By: #### CBCAD, MG, URIC, LIPD, PHOS, CMP, DBIL #### [facility] [address] [place], [place] [id number] (Bld) [#/Vol]5.51 10*6/uLNormal4.20-5.80NoEast [place] [facility] SpecialistComment on above:Performed By: #### CBCAD, MG, URIC, LIPD, PHOS, CMP, DBIL #### [facility] [address] [place], [place] [id number]-FO20.4 wHQmrrxl47.0-50.0NoEast [place] [facility] Specialist Comment on above:Performed By: #### CBCAD, MG, URIC, LIPD, PHOS, CMP, DBIL #### [facility] [address] [place], [place] [id number] (Bld) [#/Vol]6.3 10*3/uLNormal3.8-11.0NoEast [facility] SpecialistComment on above:Performed By: #### CBCAD, MG, URIC, LIPD, PHOS, CMP, DBIL #### [facility] [address] [place], [place] [id number] Metabolic Panelon [id number] [Mass/Vol] 5.0 g/dLNormal3.6-5.1NortherUniversity Hospitals Health System SpecialistComment on above:Performed By: #### CBCAD, MG, URIC, LIPD, PHOS, CMP, DBIL #### [facility] [address] [place], [place] [id number]/Globulin [Mass ratio]2.6 {ratio}High1.0-2.5NoEast [place] [facility] SpecialistComment on above:Performed By: #### CBCAD, MG, URIC, LIPD, PHOS, CMP, DBIL #### [facility] [address] [place], [place] [id number] [Catalytic activity/Vol]73 U/WYrxxjh85-296Dpqocphw [place] [facility] SpecialistComment on above:Performed By: #### CBCAD, MG, URIC, LIPD, PHOS, CMP, DBIL #### [facility] [address] [place], [place] [id number] [Catalytic activity/Vol]27 U/LNormal9-46NoEast [facility] SpecialistComment on above:Result Comment: 03/17/2021 Female reference range changed.Performed By: #### CBCAD, MG, URIC, LIPD, PHOS, CMP, DBIL #### [facility] [address] [place], [place] [id number] gap [Moles/Vol]18 mmol/UEefphr43-68Lujraigw [place] [facility] SpecialistComment on above:Result Comment: Effective 04/22/2019 reference range changed.Performed By: #### CBCAD, MG, URIC, LIPD, PHOS, CMP, DBIL #### [facility] [address] [place], [place] [id number] [Catalytic activity/Vol]23 U/SRynowy67-64IvzbvkemAshtabula County Medical Center SpecialistComment on above:Performed By: #### CBCAD, MG, URIC, LIPD, PHOS, CMP, DBIL #### [facility] [address] [place], [place] [id number] [Mass/Vol]0.68 mg/dLNormal0.30-1.20NortSelect [facility], [facility] Medical SpecialistComment on above:Performed By: #### CBCAD, MG, URIC, LIPD, PHOS, CMP, DBIL #### [facility] [address] [place], [place] [id number]/CREA16 RatioNormal6-22NortSelect Medical Specialty [facility], [facility] Furniture Dipper Comment on above:Performed By: #### CBCAD, MG, URIC, LIPD, PHOS, CMP, DBIL #### [facility] [address] [place], [place] [id number] [Mass/Vol]10.0 mg/dLNormal8.6-10.2[facility] SpecialistComment on above:Performed By: #### CBCAD, MG, URIC, LIPD, PHOS, CMP, DBIL #### [facility] [address] [place], [place] [id number] [Moles/Vol]103 mmol/IPzomed43-095Easqbfgk [place] [facility] SpecialistComment on above:Performed By: #### CBCAD, MG, URIC, LIPD, PHOS, CMP, DBIL #### [facility] [address] [place], [place] [id number] [Moles/Vol]25 mmol/HXojotu49-15Bstixtzy [place] [facility] SpecialistComment on above:Performed By: #### CBCAD, MG, URIC, LIPD, PHOS, CMP, DBIL #### [facility] [address] [place], [place] [id number] [Mass/Vol]1.1 mg/dLNormal0.7-1.4NortUC Health SpecialistComment on above:Performed By: #### CBCAD, MG, URIC, LIPD, PHOS, CMP, DBIL #### [facility] [address] [place], [place] [id number] mL/min/1.89x5Lylxgu>60Nortbarrow neurological instituten [facility] SpecialistComment on above:Performed By: #### CBCAD, MG, URIC, LIPD, PHOS, CMP, DBIL #### [facility] [address] [place], [place] [id number] mL/min/1.47h6Rgednn>60NoEast [place] [facility] Hospital SpecialistComment on above:Performed By: #### CBCAD, MG, URIC, LIPD, PHOS, CMP, DBIL #### [facility] [address] [place], [place] [id number] (S) [Mass/Vol]1.9 g/dLNormal1.9-3.7NoEast [place] [facility] SpecialistComment on above:Performed By: #### CBCAD, MG, URIC, LIPD, PHOS, CMP, DBIL #### [facility] [address] [place], [place] [id number] [Mass/Vol]109 mg/bQNwmz93-36Yvoydhzk [place] [facility] SpecialistComment on above:Result Comment: For FASTING Glucose --- ADA reference ranges: Normal 65-99 mg/dl Prediabetes 100-125 Diabetes >/= 126Performed By: #### CBCAD, MG, URIC, LIPD, PHOS, CMP, DBIL #### [facility] [address] [place], [place] [id number] [Moles/Vol]4.7 mmol/LNormal3.5-5.5NoEast [place] [facility] SpecialistComment on above:Performed By: #### CBCAD, MG, URIC, LIPD, PHOS, CMP, DBIL #### [facility] [address] [place], [place] [id number] [Mass/Vol]6.9 g/dLNormal6.1-8.1NorthSelect [facility] SpecialistComment on above:Performed By: #### CBCAD, MG, URIC, LIPD, PHOS, CMP, DBIL #### [facility] [address] [place], [place] [id number] [Moles/Vol]141 mmol/RHfowmt497-898Yxahcmlk [place] [facility] SpecialistComment on above:Performed By: #### CBCAD, MG, URIC, LIPD, PHOS, CMP, DBIL #### [facility] [address] [place], [place] [id number] nitrogen [Mass/Vol]18 mg/dLNormal7-25NoEast [place] [facility] SpecialistComment on above:Performed By: #### CBCAD, MG, URIC, LIPD, PHOS, CMP, DBIL #### [facility] [address] [place], [place] [id number] Panelon 10-53-3170Oychgykutcr [Mass/Vol]121 mg/dLLow 125-200NoEast [place] [facility] SpecialistComment on above:Result Comment: Low risk < 200mg/dL Borderline risk 201-239 mg/dl High risk > or equal to 240Performed By: #### CBCAD, MG, URIC, LIPD, PHOS, CMP, DBIL #### [facility] [address] [place], [place] [id number] in HDL [Mass/Vol]41 mg/dLNormal>40NoEast [place] [facility] SpecialistComment on above:Result Comment: High Cardiovascular Risk HDL <40 mg/dL Low Cardiovascular Risk HDL > or equal to 60 mg/dlPerformed By: #### CBCAD, MG, URIC, LIPD, PHOS, CMP, DBIL #### [facility] [address] [place], [place] [id number] in LDL [Mass/Vol]56 mg/dLNoOhioHealth Berger Hospital SpecialistComment on above:Result Comment: LDL ATP III CLASSIFICATION LDL less than 100 mg/dl Optimal LDL 100-129 mg/dl Near or above optimal LDL 130-159 Borderline high LDL 160-189 High LDL greater than 189 mg/dl Very HighPerformed By: #### CBCAD, MG, URIC, LIPD, PHOS, CMP, DBIL #### [facility] [address] [place], [place] [id number] in VLDL [Mass/Vol]24 mg/dLNoOhioHealth Berger Hospital SpecialistComment on above:Performed By: #### CBCAD, MG, URIC, LIPD, PHOS, CMP, DBIL #### [facility] [address] [place], [place] [id number].total/Cholesterol in HDL [Mass ratio]3 {ratio} NormalNorthern [place] Medical SpecialistComment on above:Performed By: #### CBCAD, MG, URIC, LIPD, PHOS, CMP, DBIL #### [facility] [address] [place], [place] [id number] [Mass/Vol]118 mg/fBGvbjzc01-713Twdrtpru [facility] SpecialistComment on above:Result Comment: TRIG ATPIII CLASSIFICATIONS TRIG less than 150 mg/dl Normal TRIG 150-199 mg/dl Borderline High TRIG 200-500 mg/dl High TRIG greather than 500 mg/dl Very HighPerformed By: #### CBCAD, MG, URIC, LIPD, PHOS, CMP, DBIL #### [facility] [address] [place], [place] [id number] 40-47-9042Aqpvycptl [Mass/Vol]2.0 mg/dLNormal 1.5-2.3[facility] SpecialistComment on above:Performed By: #### CBCAD, MG, URIC, LIPD, PHOS, CMP, DBIL #### [facility] [address] [place], [place] [id number] 97-05-8132Ymadhqipt [Mass/Vol]3.3 mg/dLNormal 2.2-4.4N[facility] instituten [facility] SpecialistComment on above:Performed By: #### CBCAD, MG, URIC, LIPD, PHOS, CMP, DBIL #### [facility] [address] [place], [place] [id number] - TACROLIMUSon 25-35-9802NEXARFVHOE, HIGHLY SENSITIVE, LC/MS/MS6.3 mcg/LNormalNortUC Health SpecialistComment on above:Order Comment: [facility] performed at: QPT, [facility], [address], [address] [place] [address], [place], [address], Buffing Wheel Presser: Shaheed Bazzi MDQuest Collection Date/Time: [id number] Results Received Date/Time: [id number] Reported Date/Time: [id number] Comment: No definitive therapeutic or toxic ranges have been established. Optimal blood drug levels are influenced by type of transplant, patient response, time post- transplant, co-administration of other drugs, and drug formulation. The following trough range is a suggested guideline: 5.0-20.0 mcg/L. This test was developed and its analytical performance characteristics have been determined by [employer]. It has not been cleared or approved by the FDA. This assay has been validated pursuant to the CLIA regulations and is used for clinical purposes.Performed By: #### CBCAD, MG, URIC, LIPD, PHOS, CMP, DBIL #### [facility] [address] [place], [place] [id number] Acidon 72-11-1151AXKK7.1 mg/dLNormal4.0-8.0NoOhioHealth Grady Memorial HospitalComment on above:Result Comment: Reference range change 03/03/2017. Prior reference range F 2.4-5.7mg/dL. M 3.4-7.0 mg/dL.Performed By: #### CBCAD, MG, URIC, LIPD, PHOS, CMP, DBIL #### [facility] [address] [place], [place] [id number], Directon 78-13-7618CJDV<0.2NormalNoOhioHealth Grady Memorial HospitalComment on above:Result Comment: Reference range change 03/03/2017. Prior reference range 0.1-0.3 mg/dL.Performed By: #### CBCAD, MG, URIC, LIPD, PHOS, CMP, DBIL #### [facility] [address] [place], [place] [id number] Blood Count with Auto Diffon [id number] (Bld) [#/Vol]0.05 10*3/uLNormal0.00-0.20NoOhioHealth Grady Memorial HospitalComment on above:Performed By: #### CBCAD, MG, URIC, LIPD, PHOS, CMP, DBIL #### [facility] [address] [place], [place] [id number]/100 WBC (Bld)0.8 %NormalNorthern Pennsylvania Medical SpecialistComment on above:Performed By: #### CBCAD, MG, URIC, LIPD, PHOS, CMP, DBIL #### [facility] [address] [place], [place] [id number] (Bld) [#/Vol]0.10 10*3/uLNormal0.02-0.50NoEast [place] [facility] SpecialistComment on above:Performed By: #### CBCAD, MG, URIC, LIPD, PHOS, CMP, DBIL #### [facility] [address] [place], [place] [id number]/100 WBC (Bld)1.6 %NormalAshtabula County Medical Center SpecialistComment on above:Performed By: #### CBCAD, MG, URIC, LIPD, PHOS, CMP, DBIL #### [facility] [address] [place], [place] [id number] distribution width (RBC) [Ratio]14.6 %Normal 11.0-15.0NoEast [place] [facility] SpecialistComment on above:Performed By: #### CBCAD, MG, URIC, LIPD, PHOS, CMP, DBIL #### [facility] [address] [place], [place] [id number] (Bld) [Volume fraction]50.7 %High38.5-50.0NoEast [place] [facility] SpecialistComment on above:Performed By: #### CBCAD, MG, URIC, LIPD, PHOS, CMP, DBIL #### [facility] [address] [place], [place] [id number] (Bld) [Mass/Vol]16.2 g/oNVkffyd79.0-17.1NortherUniversity Hospitals Health System SpecialistComment on above:Performed By: #### CBCAD, MG, URIC, LIPD, PHOS, CMP, DBIL #### [facility] [address] [place], [place] [id number] (Bld) [#/Vol]1.0 10*3/uLNormal0.9-3.9NoEast [place] [facility] SpecialistComment on above:Performed By: #### CBCAD, MG, URIC, LIPD, PHOS, CMP, DBIL #### [facility] [address] [place], [place] [id number]/100 WBC (Bld)16.2 %NormalAshtabula County Medical Center SpecialistComment on above:Performed By: #### CBCAD, MG, URIC, LIPD, PHOS, CMP, DBIL #### [facility] [address] [place], [place] [id number] (RBC) [Entitic mass]30.0 gxHfkgyr30.0-33.0NoEast [place] [facility] SpecialistComment on above:Performed By: #### CBCAD, MG, URIC, LIPD, PHOS, CMP, DBIL #### [facility] [address] [place], [place] [id number] (RBC) [Mass/Vol]32.0 g/lFFrusyi13.0-36.0NoEast [place] [facility] SpecialistComment on above:Performed By: #### CBCAD, MG, URIC, LIPD, PHOS, CMP, DBIL #### [facility] [address] [place], [place] [id number] (RBC) [Entitic vol]94 eOJtozep45-173Cnakepib [place] [facility] SpecialistComment on above:Performed By: #### CBCAD, MG, URIC, LIPD, PHOS, CMP, DBIL #### [facility] [address] [place], [place] [id number] (Bld) [#/Vol]0.9 10*3/uLNormal0.2-0.9NoEast [place] [facility] SpecialistComment on above:Performed By: #### CBCAD, MG, URIC, LIPD, PHOS, CMP, DBIL #### [facility] [address] [place], [place] [id number]/100 WBC (Bld)13.4 %NormalAshtabula County Medical Center SpecialistComment on above:Performed By: #### CBCAD, MG, URIC, LIPD, PHOS, CMP, DBIL #### [facility] [address] [place], [place] [id number] (Bld) [#/Vol]4.3 10*3/uLNormal1.5-7.8NortUC Health SpecialistComment on above:Performed By: #### CBCAD, MG, URIC, LIPD, PHOS, CMP, DBIL #### [facility] [address] [place], [place] [id number]/100 WBC (Bld)67.7 %NormalNoEast [place] [facility] SpecialistComment on above:Performed By: #### CBCAD, MG, URIC, LIPD, PHOS, CMP, DBIL #### [facility] [address] [place], [place] [id number] mean volume (Bld) [Entitic vol]11.00 fLNormal 7.50-12.50NoEast [place] [facility] SpecialistComment on above:Performed By: #### CBCAD, MG, URIC, LIPD, PHOS, CMP, DBIL #### [facility] [address] [place], [place] [id number] (Bld) [#/Vol]239 10*3/yWVmdwpd637-981Nwswxiih [place] [facility] SpecialistComment on above:Performed By: #### CBCAD, MG, URIC, LIPD, PHOS, CMP, DBIL #### [facility] [address] [place], [place] [id number] (Bld) [#/Vol]5.40 10*6/uLNormal4.20-5.80NortUC Health SpecialistComment on above:Performed By: #### CBCAD, MG, URIC, LIPD, PHOS, CMP, DBIL #### [facility] [address] [place], [place] [id number]-IE97.2 eVEnis67.0-50.0NoEast [place] [facility] Specialist Comment on above:Performed By: #### CBCAD, MG, URIC, LIPD, PHOS, CMP, DBIL #### [facility] [address] [place], [place] [id number] (Bld) [#/Vol]6.4 10*3/uLNormal3.8-11.0[facility] SpecialistComment on above:Performed By: #### CBCAD, MG, URIC, LIPD, PHOS, CMP, DBIL #### [facility] [address] [place], [place] [id number] Metabolic Panelon 79-23-8795Oilgtaw [Mass/Vol] 4.9 g/dLNormal3.6-5.1NortherUniversity Hospitals Health System SpecialistComment on above:Performed By: #### CBCAD, MG, URIC, LIPD, PHOS, CMP, DBIL #### [facility] [address] [place], [place] [id number]/Globulin [Mass ratio]3.3 {ratio}High1.0-2.5NoOhioHealth Grady Memorial HospitalComment on above:Performed By: #### CBCAD, MG, URIC, LIPD, PHOS, CMP, DBIL #### [facility] [address] [place], [place] [id number] [Catalytic activity/Vol]73 U/YRkirtn85-124Qxsbdveu [facility] SpecialistComment on above:Performed By: #### CBCAD, MG, URIC, LIPD, PHOS, CMP, DBIL #### [facility] [address] [place], [place] [id number] [Catalytic activity/Vol]26 U/LNormal9-46NoEast [place] [facility] SpecialistComment on above:Result Comment: 03/17/2021 Female reference range changed.Performed By: #### CBCAD, MG, URIC, LIPD, PHOS, CMP, DBIL #### [facility] [address] [place], [place] [id number] gap [Moles/Vol]16 mmol/NUhdugz94-38Opzwweva [facility] SpecialistComment on above:Result Comment: Effective 04/22/2019 reference range changed.Performed By: #### CBCAD, MG, URIC, LIPD, PHOS, CMP, DBIL #### [facility] [address] [place], [place] [id number] [Catalytic activity/Vol]23 U/GHiyrme51-20Xschrqml [facility] SpecialistComment on above:Performed By: #### CBCAD, MG, URIC, LIPD, PHOS, CMP, DBIL #### [facility] [address] [place], [place] [id number] [Mass/Vol]0.76 mg/dLNormal0.30-1.20NoEast [place] [facility] SpecialistComment on above:Performed By: #### CBCAD, MG, URIC, LIPD, PHOS, CMP, DBIL #### [facility] [address] [place], [place] [id number]/CREA15 RatioNormal6-22NoEast [facility] Specialist Comment on above:Performed By: #### CBCAD, MG, URIC, LIPD, PHOS, CMP, DBIL #### [facility] [address] [place], [place] [id number] [Mass/Vol]9.8 mg/dLNormal8.6-10.2[facility] SpecialistComment on above:Performed By: #### CBCAD, MG, URIC, LIPD, PHOS, CMP, DBIL #### [facility] [address] [place], [place] [id number] [Moles/Vol]103 mmol/DNkukat82-595Yiwadseu [facility] SpecialistComment on above:Performed By: #### CBCAD, MG, URIC, LIPD, PHOS, CMP, DBIL #### [facility] [address] [place], [place] [id number] [Moles/Vol]26 mmol/KNzqsfh59-52Hzohmlks [facility] SpecialistComment on above:Performed By: #### CBCAD, MG, URIC, LIPD, PHOS, CMP, DBIL #### [facility] [address] [place], [place] [id number] [Mass/Vol]1.1 mg/dLNormal0.7-1.4NortUC Health SpecialistComment on above:Performed By: #### CBCAD, MG, URIC, LIPD, PHOS, CMP, DBIL #### [facility] [address] [place], [place] [id number] mL/min/1.83u7Jmgqov>60NoEast [place] [facility] SpecialistComment on above:Performed By: #### CBCAD, MG, URIC, LIPD, PHOS, CMP, DBIL #### [facility] [address] [place], [place] [id number] mL/min/1.30p6Qhfooo>60NoEast [facility] SpecialistComment on above:Performed By: #### CBCAD, MG, URIC, LIPD, PHOS, CMP, DBIL #### [facility] [address] [place], [place] [id number] (S) [Mass/Vol]1.5 g/dLLow1.9-3.7NoEast [facility] SpecialistComment on above:Performed By: #### CBCAD, MG, URIC, LIPD, PHOS, CMP, DBIL #### [facility] [address] [place], [place] [id number] [Mass/Vol]130 mg/gOVbtp08-27Yatvtmia [facility] SpecialistComment on above:Result Comment: For FASTING Glucose --- ADA reference ranges: Normal 65-99 mg/dl Prediabetes 100-125 Diabetes >/= 126Performed By: #### CBCAD, MG, URIC, LIPD, PHOS, CMP, DBIL #### [facility] [address] [place], [place] [id number] [Moles/Vol]4.6 mmol/LNormal3.5-5.5NoEast [facility] SpecialistComment on above:Performed By: #### CBCAD, MG, URIC, LIPD, PHOS, CMP, DBIL #### [facility] [address] [place], [place] [id number] [Mass/Vol]6.4 g/dLNormal6.1-8.1NortherUniversity Hospitals Health System SpecialistComment on above:Performed By: #### CBCAD, MG, URIC, LIPD, PHOS, CMP, DBIL #### [facility] [address] [place], [place] [id number] [Moles/Vol]140 mmol/ICcuuqi561-738Kuvmsxil [facility] SpecialistComment on above:Performed By: #### CBCAD, MG, URIC, LIPD, PHOS, CMP, DBIL #### [facility] [address] [place], [place] [id number] nitrogen [Mass/Vol]17 mg/dLNormal7-25Nortbarrow neurological instituten [facility] SpecialistComment on above:Performed By: #### CBCAD, MG, URIC, LIPD, PHOS, CMP, DBIL #### [facility] [address] [place], [place] [id number] Panelon 25-46-7982Illmlyobzzv [Mass/Vol]111 mg/dLLow 125-200NoEast [facility] SpecialistComment on above:Result Comment: Low risk < 200mg/dL Borderline risk 201-239 mg/dl High risk > or equal to 240Performed By: #### CBCAD, MG, URIC, LIPD, PHOS, CMP, DBIL #### [facility] [address] [place], [place] [id number] in HDL [Mass/Vol]38 mg/dLLow>40NoEast [facility] SpecialistComment on above:Result Comment: High Cardiovascular Risk HDL <40 mg/dL Low Cardiovascular Risk HDL > or equal to 60 mg/dlPerformed By: #### CBCAD, MG, URIC, LIPD, PHOS, CMP, DBIL #### [facility] [address] [place], [place] [id number] in LDL [Mass/Vol]47 mg/dLNormalNortUC Health SpecialistComment on above:Result Comment: LDL ATP III CLASSIFICATION LDL less than 100 mg/dl Optimal LDL 100-129 mg/dl Near or above optimal LDL 130-159 Borderline high LDL 160-189 High LDL greater than 189 mg/dl Very HighPerformed By: #### CBCAD, MG, URIC, LIPD, PHOS, CMP, DBIL #### [facility] [address] [place], [place] [id number] in VLDL [Mass/Vol]26 mg/dLNormalNortUC Health SpecialistComment on above:Performed By: #### CBCAD, MG, URIC, LIPD, PHOS, CMP, DBIL #### [facility] [address] [place], [place] [id number].total/Cholesterol in HDL [Mass ratio]3 {ratio} NormalNortUC Health SpecialistComment on above:Performed By: #### CBCAD, MG, URIC, LIPD, PHOS, CMP, DBIL #### [facility] [address] [place], [place] [id number] [Mass/Vol]132 mg/tWTiwqcw65-651Alelljnj [facility] SpecialistComment on above:Result Comment: TRIG ATPIII CLASSIFICATIONS TRIG less than 150 mg/dl Normal TRIG 150-199 mg/dl Borderline High TRIG 200-500 mg/dl High TRIG greather than 500 mg/dl Very HighPerformed By: #### CBCAD, MG, URIC, LIPD, PHOS, CMP, DBIL #### [facility] [address] [place], [place] [id number] 19-86-9533Izkqkbakn [Mass/Vol]1.7 mg/dLNormal 1.5-2.3NoEast [facility] SpecialistComment on above:Performed By: #### CBCAD, MG, URIC, LIPD, PHOS, CMP, DBIL #### [facility] [address] [place], [place] [id number] 24-49-0876Zeudyyxzg [Mass/Vol]3.7 mg/dLNormal 2.2-4.4NoEast [facility] SpecialistComment on above:Performed By: #### CBCAD, MG, URIC, LIPD, PHOS, CMP, DBIL #### [facility] [address] [place], [place] [id number] Acidon 00-38-2491GNPA1.0 mg/dLNormal4.0-8.0NoEast [facility] SpecialistComment on above:Result Comment: Reference range change 03/03/2017. Prior reference range F 2.4-5.7mg/dL. M 3.4-7.0 mg/dL.Performed By: #### CBCAD, MG, URIC, LIPD, PHOS, CMP, DBIL #### [facility] [address] [facility] [place] [id number] Functionon [id number] FunctionMR #: [id number] [facility] PT. Name: Vishal Duke Date: 06/02/2021 Date [...] Syed MD Date Trans: 06/06/2021 02:28 P/ DN_JN:[id number] cc: Rosa M Gonzales M.D. [address] [place], [place] [address] [address]CmrydwTaqBlanchard Valley Health System Bluffton HospitalBilirubin, Directon [id number]<0.2NormalNorthern [place] Medical SpecialistComment on above:Result Comment: Reference range change 03/03/2017. Prior reference range 0.1-0.3 mg/dL.Performed By: #### CBCAD, MG, URIC, LIPD, PHOS, CMP, DBIL #### [facility] [address] [facility] [place], [place] [id number] Blood Count with Auto Diffon [id number] (Bld) [#/Vol]0.06 10*3/uLNormal0.00-0.20NoEast [facility] SpecialistComment on above:Performed By: #### CBCAD, MG, URIC, LIPD, PHOS, CMP, DBIL #### [facility] [address] [place], [place] [id number]/100 WBC (Bld)0.9 %NormalAshtabula County Medical Center SpecialistComment on above:Performed By: #### CBCAD, MG, URIC, LIPD, PHOS, CMP, DBIL #### [facility] [address] [place], [place] [id number] (Bld) [#/Vol]0.12 10*3/uLNormal0.02-0.50NoEast [facility] SpecialistComment on above:Performed By: #### CBCAD, MG, URIC, LIPD, PHOS, CMP, DBIL #### [facility] [address] [place], [place] [id number]/100 WBC (Bld)1.8 %NormalAshtabula County Medical Center SpecialistComment on above:Performed By: #### CBCAD, MG, URIC, LIPD, PHOS, CMP, DBIL #### [facility] [address] [place], [place] [id number] distribution width (RBC) [Ratio]14.7 %Normal 11.0-15.0[facility] SpecialistComment on above:Performed By: #### CBCAD, MG, URIC, LIPD, PHOS, CMP, DBIL #### [facility] [address] [place], [place] [id number] (Bld) [Volume fraction]50.8 %High38.5-50.0[facility] SpecialistComment on above:Performed By: #### CBCAD, MG, URIC, LIPD, PHOS, CMP, DBIL #### [facility] [address] [place], [place] [id number] (Bld) [Mass/Vol]16.5 g/eUZlrpkf07.0-17.1[facility] SpecialistComment on above:Performed By: #### CBCAD, MG, URIC, LIPD, PHOS, CMP, DBIL #### [facility] [address] [place], [place] [id number] (Bld) [#/Vol]1.1 10*3/uLNormal0.9-3.9No[facility] SpecialistComment on above:Performed By: #### CBCAD, MG, URIC, LIPD, PHOS, CMP, DBIL #### [facility] [address] [place], [place] [id number]/100 WBC (Bld)16.1 %NormalNoEast [facility] SpecialistComment on above:Performed By: #### CBCAD, MG, URIC, LIPD, PHOS, CMP, DBIL #### [facility] [address] [place], [place] [id number] (RBC) [Entitic mass]29.8 unGkwhgu94.0-33.0No[facility] SpecialistComment on above:Performed By: #### CBCAD, MG, URIC, LIPD, PHOS, CMP, DBIL #### [facility] [address] [place], [place] [id number] (RBC) [Mass/Vol]32.5 g/vBSpsswv79.0-36.0No[facility] SpecialistComment on above:Performed By: #### CBCAD, MG, URIC, LIPD, PHOS, CMP, DBIL #### [facility] [address] [place], [place] [id number] (RBC) [Entitic vol]92 vINcsigp42-252Jwqrfbin [place] Medical SpecialistComment on above:Performed By: #### CBCAD, MG, URIC, LIPD, PHOS, CMP, DBIL #### [facility] [address] [place], [place] [id number] (Bld) [#/Vol]0.8 10*3/uLNormal0.2-0.9NoEast [facility] SpecialistComment on above:Performed By: #### CBCAD, MG, URIC, LIPD, PHOS, CMP, DBIL #### [facility] [address] [place], [place] [id number]/100 WBC (Bld)11.4 %NormalAshtabula [facility] Medical Center SpecialistComment on above:Performed By: #### CBCAD, MG, URIC, LIPD, PHOS, CMP, DBIL #### [facility] [address] [place], [place] [id number] (Bld) [#/Vol]4.6 10*3/uLNormal1.5-7.8NoEast [place] [facility] SpecialistComment on above:Performed By: #### CBCAD, MG, URIC, LIPD, PHOS, CMP, DBIL #### [facility] [address] [place], [place] [id number]/100 WBC (Bld)69.2 %NormalAshtabula County Medical Center SpecialistComment on above:Performed By: #### CBCAD, MG, URIC, LIPD, PHOS, CMP, DBIL #### [facility] [address] [place], [place] [id number] mean volume (Bld) [Entitic vol]10.60 fLNormal 7.50-12.50NoEast [place] [facility] SpecialistComment on above:Performed By: #### CBCAD, MG, URIC, LIPD, PHOS, CMP, DBIL #### [facility] [address] [place], [place] [id number] (Bld) [#/Vol]285 10*3/wDFntkec559-633Kbipswtd [place] [facility] SpecialistComment on above:Performed By: #### CBCAD, MG, URIC, LIPD, PHOS, CMP, DBIL #### [facility] [address] [place], [place] [id number] (Bld) [#/Vol]5.53 10*6/uLNormal4.20-5.80[facility] instituten [place] [facility] SpecialistComment on above:Performed By: #### CBCAD, MG, URIC, LIPD, PHOS, CMP, DBIL #### [facility] [address] [place], [place] [id number]-TR49.8 qUZlambt73.0-50.0NoEast [place] [facility] Specialist Comment on above:Performed By: #### CBCAD, MG, URIC, LIPD, PHOS, CMP, DBIL #### [facility] [address] [place], [place] [id number] (Bld) [#/Vol]6.6 10*3/uLNormal3.8-11.0[facility] SpecialistComment on above:Performed By: #### CBCAD, MG, URIC, LIPD, PHOS, CMP, DBIL #### [facility] [address] [place], [place] [id number] Metabolic Panelon 30-90-1802Tvndfzb [Mass/Vol] 5.0 g/dLNormal3.6-5.1[facility] SpecialistComment on above:Performed By: #### CBCAD, MG, URIC, LIPD, PHOS, CMP, DBIL #### [facility] [address] [place], [place] [id number]/Globulin [Mass ratio]2.6 {ratio}High1.0-2.5NoEast [place] [facility] SpecialistComment on above:Performed By: #### CBCAD, MG, URIC, LIPD, PHOS, CMP, DBIL #### [facility] [address] [place], [place] [id number] [Catalytic activity/Vol]93 U/WLkaqzg50-632Bmrjbpeb [place] [facility] SpecialistComment on above:Performed By: #### CBCAD, MG, URIC, LIPD, PHOS, CMP, DBIL #### [facility] [address] [place], [place] [id number] [Catalytic activity/Vol]30 U/LNormal9-46NoEast [place] [facility] SpecialistComment on above:Result Comment: 03/17/2021 Female reference range changed.Performed By: #### CBCAD, MG, URIC, LIPD, PHOS, CMP, DBIL #### [facility] [address] [place], [place] [id number] gap [Moles/Vol]21 mmol/TGqng32-87OpzvbmhyEast [place] [facility] SpecialistComment on above:Result Comment: Effective 04/22/2019 reference range changed.Performed By: #### CBCAD, MG, URIC, LIPD, PHOS, CMP, DBIL #### [facility] [address] [place], [place] [id number] [Catalytic activity/Vol]26 U/PDdehlf63-39Wolisdyn [place] Medical SpecialistComment on above:Performed By: #### CBCAD, MG, URIC, LIPD, PHOS, CMP, DBIL #### [facility] [address] [place], [place] [id number] [Mass/Vol]0.72 mg/dLNormal0.30-1.20NoEast [place] [facility] SpecialistComment on above:Performed By: #### CBCAD, MG, URIC, LIPD, PHOS, CMP, DBIL #### [facility] [address] [place], [place] [id number]/CREA15 RatioNormal6-22NoEast [place] [facility] Specialist Comment on above:Performed By: #### CBCAD, MG, URIC, LIPD, PHOS, CMP, DBIL #### [facility] [address], [place] [id number] [Mass/Vol]10.4 mg/dLHigh8.6-10.2[facility]herUniversity [facility]als [facility] SpecialistComment on above:Performed By: #### CBCAD, MG, URIC, LIPD, PHOS, CMP, DBIL #### [facility] [address] [place], [place] [id number] [Moles/Vol]104 mmol/FGmbybh70-239Kjexdtrr [place] [facility] SpecialistComment on above:Performed By: #### CBCAD, MG, URIC, LIPD, PHOS, CMP, DBIL #### [facility] [address] [place], [place] [id number] [Moles/Vol]24 mmol/SRududd27-27Iabxkfiu [place] [facility] SpecialistComment on above:Performed By: #### CBCAD, MG, URIC, LIPD, PHOS, CMP, DBIL #### [facility] [address] [place], [place] [id number] [Mass/Vol]1.2 mg/dLNormal0.7-1.4NortUC Health SpecialistComment on above:Performed By: #### CBCAD, MG, URIC, LIPD, PHOS, CMP, DBIL #### [facility] [address] [place], [place] [id number] mL/min/1.76g1Rnaatg>60NortUC Health SpecialistComment on above:Performed By: #### CBCAD, MG, URIC, LIPD, PHOS, CMP, DBIL #### [facility] [address] [place], [place] [id number] mL/min/1.03f6Egwuuz>60NortUC Health SpecialistComment on above:Performed By: #### CBCAD, MG, URIC, LIPD, PHOS, CMP, DBIL #### [facility] [address] [place], [place] [id number] (S) [Mass/Vol]1.9 g/dLNormal1.9-3.7NoEast [place] [facility] SpecialistComment on above:Performed By: #### CBCAD, MG, URIC, LIPD, PHOS, CMP, DBIL #### [facility] [address] [place], [place] [id number] [Mass/Vol]108 mg/mSRgbw27-12Ybqhnpie [place] Medical SpecialistComment on above:Result Comment: For FASTING Glucose --- ADA reference ranges: Normal 65-99 mg/dl Prediabetes 100-125 Diabetes >/= 126Performed By: #### CBCAD, MG, URIC, LIPD, PHOS, CMP, DBIL #### [facility] [address] [place], [place] [id number] [Moles/Vol]5.0 mmol/LNormal3.5-5.5NoEast [place] [facility] SpecialistComment on above:Performed By: #### CBCAD, MG, URIC, LIPD, PHOS, CMP, DBIL #### [facility] [address] [place], [place] [id number] [Mass/Vol]6.9 g/dLNormal6.1-8.1[facility] SpecialistComment on above:Performed By: #### CBCAD, MG, URIC, LIPD, PHOS, CMP, DBIL #### [facility] [address] [place], [place] [id number] [Moles/Vol]143 mmol/TXyaxfh999-544Wwimpgqf [place] [facility] SpecialistComment on above:Performed By: #### CBCAD, MG, URIC, LIPD, PHOS, CMP, DBIL #### [facility] [address] [place], [place] [id number] nitrogen [Mass/Vol]17 mg/dLNormal7-25NoEast [place] [facility] SpecialistComment on above:Performed By: #### CBCAD, MG, URIC, LIPD, PHOS, CMP, DBIL #### [facility] [address] [place], [place] [id number] A1Con 04-51-5207BDW166.85NormalNoEast [place] [facility] SpecialistComment on above:Performed By: #### A1C #### [facility] [address] [place], [place] [id number] (Bld) [Mass fraction]6.5 %High4.0-6.0NoEast [place] [facility] SpecialistComment on above:Performed By: #### A1C #### [facility] [address] [place], [place] [id number] Panelon 47-80-0580Ycogqkmxoiv [Mass/Vol]129 mg/dLNormal 125-200NoEast [place] [facility] SpecialistComment on above:Result Comment: Low risk < 200mg/dL Borderline risk 201-239 mg/dl High risk > or equal to 240Performed By: #### CBCAD, MG, URIC, LIPD, PHOS, CMP, DBIL #### [facility] [address] [place], [place] [id number] in HDL [Mass/Vol]44 mg/dLNormal>40NoEast [place] [facility] SpecialistComment on above:Result Comment: High Cardiovascular Risk HDL <40 mg/dL Low Cardiovascular Risk HDL > or equal to 60 mg/dlPerformed By: #### CBCAD, MG, URIC, LIPD, PHOS, CMP, DBIL #### [facility] [address] [place], [place] [id number] in LDL [Mass/Vol]61 mg/dLNormalNoEast [place] [facility] SpecialistComment on above:Result Comment: LDL ATP III CLASSIFICATION LDL less than 100 mg/dl Optimal LDL 100-129 mg/dl Near or above optimal LDL 130-159 Borderline high LDL 160-189 High LDL greater than 189 mg/dl Very HighPerformed By: #### CBCAD, MG, URIC, LIPD, PHOS, CMP, DBIL #### [facility] [address] [place], [place] [id number] in VLDL [Mass/Vol]24 mg/dLNormalNoEast [place] [facility] SpecialistComment on above:Performed By: #### CBCAD, MG, URIC, LIPD, PHOS, CMP, DBIL #### [facility] [address] [place], [place] [id number].total/Cholesterol in HDL [Mass ratio]3 {ratio} NormalNoEast [place] [facility] SpecialistComment on above:Performed By: #### CBCAD, MG, URIC, LIPD, PHOS, CMP, DBIL #### [facility] [address] [place], [place] [id number] [Mass/Vol]119 mg/aVOstgju81-935Ntvuzmvp [place] [facility] SpecialistComment on above:Result Comment: TRIG ATPIII CLASSIFICATIONS TRIG less than 150 mg/dl Normal TRIG 150-199 mg/dl Borderline High TRIG 200-500 mg/dl High TRIG greather than 500 mg/dl Very HighPerformed By: #### CBCAD, MG, URIC, LIPD, PHOS, CMP, DBIL #### [facility] [address] [place], [place] [id number] 15-04-1017Bkkbbldyg [Mass/Vol]1.8 mg/dLNormal 1.5-2.3NoEast [place] [facility] SpecialistComment on above:Performed By: #### CBCAD, MG, URIC, LIPD, PHOS, CMP, DBIL #### [facility] [address] [place], [place] [id number] 74-61-0749Qidfznibm [Mass/Vol]4.3 mg/dLNormal 2.2-4.4NoEast [place] [facility] SpecialistComment on above:Performed By: #### CBCAD, MG, URIC, LIPD, PHOS, CMP, DBIL #### [facility] [address] [place], [place] [id number] Acidon 91-51-8828DQXM0.1 mg/dLNormal4.0-8.0NoEast [place] [facility] SpecialistComment on above:Result Comment: Reference range change 03/03/2017. Prior reference range F 2.4-5.7mg/dL. M 3.4-7.0 mg/dL.Performed By: #### CBCAD, MG, URIC, LIPD, PHOS, CMP, DBIL #### [facility] [address] [place], [place] [id number], Directon 68-85-4152FZMI<0.2NormalNoOhioHealth Grady Memorial HospitalComment on above:Result Comment: Reference range change 03/03/2017. Prior reference range 0.1-0.3 mg/dL.Performed By: #### CBCAD, MG, URIC, LIPD, PHOS, CMP, DBIL #### [facility] [address] [place], [place] [id number] Blood Count with Auto Diffon 46-22-6351Gbpnnzchn (Bld) [#/Vol]0.07 10*3/uLNormal0.00-0.20NoOhioHealth Grady Memorial HospitalComment on above:Performed By: #### CBCAD, MG, URIC, LIPD, PHOS, CMP, DBIL #### [facility] [address] [place], [place] [id number]/100 WBC (Bld)1.1 %NormalAshtabula [facility] Center SpecialistComment on above:Performed By: #### CBCAD, MG, URIC, LIPD, PHOS, CMP, DBIL #### [facility] [address] [place], [place] [id number] (Bld) [#/Vol]0.12 10*3/uLNormal0.02-0.50NoEast [place] [facility] SpecialistComment on above:Performed By: #### CBCAD, MG, URIC, LIPD, PHOS, CMP, DBIL #### [facility] [address] [place], [place] [id number]/100 WBC (Bld)1.8 %NormalNoEast [place] [facility] SpecialistComment on above:Performed By: #### CBCAD, MG, URIC, LIPD, PHOS, CMP, DBIL #### [facility] [address] [place], [place] [id number] distribution width (RBC) [Ratio]14.7 %Normal 11.0-15.0[facility] SpecialistComment on above:Performed By: #### CBCAD, MG, URIC, LIPD, PHOS, CMP, DBIL #### [facility] [address] [place], [place] [id number] (Bld) [Volume fraction]50.5 %High38.5-50.0NoEast [place] [facility] SpecialistComment on above:Performed By: #### CBCAD, MG, URIC, LIPD, PHOS, CMP, DBIL #### [facility] [address] [place], [place] [id number] (Bld) [Mass/Vol]16.4 g/bVQpvmqv90.0-17.1NortherUniversity Hospitals Health System SpecialistComment on above:Performed By: #### CBCAD, MG, URIC, LIPD, PHOS, CMP, DBIL #### [facility] [address] [place], [place] [id number] (Bld) [#/Vol]1.0 10*3/uLNormal0.9-3.9NoEast [place] [facility] SpecialistComment on above:Performed By: #### CBCAD, MG, URIC, LIPD, PHOS, CMP, DBIL #### [facility] [address] [place], [place] [id number]/100 WBC (Bld)14.7 %NormalNortUC Health SpecialistComment on above:Performed By: #### CBCAD, MG, URIC, LIPD, PHOS, CMP, DBIL #### [facility] [address] [place], [place] [id number] (RBC) [Entitic mass]29.4 xkSiawiu46.0-33.0NoEast [place] [facility] SpecialistComment on above:Performed By: #### CBCAD, MG, URIC, LIPD, PHOS, CMP, DBIL #### [facility] [address] [place], [place] [id number] (RBC) [Mass/Vol]32.5 g/cGQciibq31.0-36.0NoEast [place] [facility] SpecialistComment on above:Performed By: #### CBCAD, MG, URIC, LIPD, PHOS, CMP, DBIL #### [facility] [address] [place], [place] [id number] (RBC) [Entitic vol]91 xOAbnlgm03-920Tbzjchrt [place] [facility] SpecialistComment on above:Performed By: #### CBCAD, MG, URIC, LIPD, PHOS, CMP, DBIL #### [facility] [address] [place], [place] [id number] (Bld) [#/Vol]0.7 10*3/uLNormal0.2-0.9NoEast [place] [facility] SpecialistComment on above:Performed By: #### CBCAD, MG, URIC, LIPD, PHOS, CMP, DBIL #### [facility] [address] [place], [place] [id number]/100 WBC (Bld)10.4 %NormalAshtabula [facility] Center SpecialistComment on above:Performed By: #### CBCAD, MG, URIC, LIPD, PHOS, CMP, DBIL #### [facility] [address] [place], [place] [id number] (Bld) [#/Vol]4.7 10*3/uLNormal1.5-7.8NoEast [place] [facility] SpecialistComment on above:Performed By: #### CBCAD, MG, URIC, LIPD, PHOS, CMP, DBIL #### [facility] [address] [place], [place] [id number]/100 WBC (Bld)71.4 %NormalNoEast [place] [facility] SpecialistComment on above:Performed By: #### CBCAD, MG, URIC, LIPD, PHOS, CMP, DBIL #### [facility] [address] [place], [place] [id number] mean volume (Bld) [Entitic vol]10.70 fLNormal 7.50-12.50NoEast [place] [facility] SpecialistComment on above:Performed By: #### CBCAD, MG, URIC, LIPD, PHOS, CMP, DBIL #### [facility] [address] [place], [place] [id number] (Bld) [#/Vol]261 10*3/xGBfeyoh840-303Nozulcnw [place] [facility] SpecialistComment on above:Performed By: #### CBCAD, MG, URIC, LIPD, PHOS, CMP, DBIL #### [facility] [address] [place], [place] [id number] (Bld) [#/Vol]5.57 10*6/uLNormal4.20-5.80NoEast [place] [facility] SpecialistComment on above:Performed By: #### CBCAD, MG, URIC, LIPD, PHOS, CMP, DBIL #### [facility] [address] [place], [place] [id number]-XR77.2 cOBbmuql56.0-50.0NoEast [place] [facility] Specialist Comment on above:Performed By: #### CBCAD, MG, URIC, LIPD, PHOS, CMP, DBIL #### [facility] [address] [place], [place] [id number] (Bld) [#/Vol]6.6 10*3/uLNormal3.8-11.0NoEast [place] [facility] SpecialistComment on above:Performed By: #### CBCAD, MG, URIC, LIPD, PHOS, CMP, DBIL #### [facility] [address] [place], [place] [id number] Metabolic Panelon 69-87-6971Egvzbfq [Mass/Vol] 4.9 g/dLNormal3.6-5.1[facility] SpecialistComment on above:Performed By: #### CBCAD, MG, URIC, LIPD, PHOS, CMP, DBIL #### [facility] [address] [place], [place] [id number]/Globulin [Mass ratio]2.6 {ratio}High1.0-2.5NoEast [place] [facility] SpecialistComment on above:Performed By: #### CBCAD, MG, URIC, LIPD, PHOS, CMP, DBIL #### [facility] [address] [place], [place] [id number] [Catalytic activity/Vol]89 U/KQrocli73-983Rrcuespt [place] [facility] SpecialistComment on above:Performed By: #### CBCAD, MG, URIC, LIPD, PHOS, CMP, DBIL #### [facility] [address] [place], [place] [id number] [Catalytic activity/Vol]30 U/LNormal9-46NortUC Health SpecialistComment on above:Result Comment: 03/17/2021 Female reference range changed.Performed By: #### CBCAD, MG, URIC, LIPD, PHOS, CMP, DBIL #### [facility] [address] [place], [place] [id number] gap [Moles/Vol]20 mmol/PCeewlu73-66Cmwoonhr [place] [facility] SpecialistComment on above:Result Comment: Effective 04/22/2019 reference range changed.Performed By: #### CBCAD, MG, URIC, LIPD, PHOS, CMP, DBIL #### [facility] [address] [place], [place] [id number] [Catalytic activity/Vol]23 U/NBzgqzz50-47Qrruwsmy [place] [facility] SpecialistComment on above:Performed By: #### CBCAD, MG, URIC, LIPD, PHOS, CMP, DBIL #### [facility] [address] [place], [place] [id number] [Mass/Vol]0.52 mg/dLNormal0.30-1.20NoEast [place] [facility] SpecialistComment on above:Performed By: #### CBCAD, MG, URIC, LIPD, PHOS, CMP, DBIL #### [facility] [address] [place], [place] [id number]/CREA18 RatioNormal6-22NoEast [facility] Specialist Comment on above:Performed By: #### CBCAD, MG, URIC, LIPD, PHOS, CMP, DBIL #### [facility] [address] [place], [place] [id number] [Mass/Vol]10.1 mg/dLNormal8.6-10.2[facility] SpecialistComment on above:Performed By: #### CBCAD, MG, URIC, LIPD, PHOS, CMP, DBIL #### [facility] [address] [place], [place] [id number] [Moles/Vol]102 mmol/JMjmaxo58-761Tcisjfcg [place] [facility] SpecialistComment on above:Performed By: #### CBCAD, MG, URIC, LIPD, PHOS, CMP, DBIL #### [facility] [address] [place], [place] [id number] [Moles/Vol]23 mmol/DEggsjg65-28Gqurxxvl [place] [facility] SpecialistComment on above:Performed By: #### CBCAD, MG, URIC, LIPD, PHOS, CMP, DBIL #### [facility] [address] [place], [place] [id number] [Mass/Vol]1.3 mg/dLNormal0.7-1.4NoEast [place] [facility] SpecialistComment on above:Performed By: #### CBCAD, MG, URIC, LIPD, PHOS, CMP, DBIL #### [facility] [address] [place], [place] [id number] mL/min/1.81y9Bknras>60NortUC Health SpecialistComment on above:Performed By: #### CBCAD, MG, URIC, LIPD, PHOS, CMP, DBIL #### [facility] [address] [place], [place] [id number] mL/min/1.96n9Thb>60NoEast [place] [facility] Specialist Comment on above:Performed By: #### CBCAD, MG, URIC, LIPD, PHOS, CMP, DBIL #### [facility] [address] [place], [place] [id number] (S) [Mass/Vol]1.9 g/dLNormal1.9-3.7NoEast [place] [facility] SpecialistComment on above:Performed By: #### CBCAD, MG, URIC, LIPD, PHOS, CMP, DBIL #### [facility] [address] [place], [place] [id number] [Mass/Vol]128 mg/fRMana51-36Bbigcnay [place] [facility] SpecialistComment on above:Result Comment: For FASTING Glucose --- ADA reference ranges: Normal 65-99 mg/dl Prediabetes 100-125 Diabetes >/= 126Performed By: #### CBCAD, MG, URIC, LIPD, PHOS, CMP, DBIL #### [facility] [address] [place], [place] [id number] [Moles/Vol]4.4 mmol/LNormal3.5-5.5NoEast [place] [facility] SpecialistComment on above:Performed By: #### CBCAD, MG, URIC, LIPD, PHOS, CMP, DBIL #### [facility] [address] [place], [place] [id number] [Mass/Vol]6.8 g/dLNormal6.1-8.1[facility] SpecialistComment on above:Performed By: #### CBCAD, MG, URIC, LIPD, PHOS, CMP, DBIL #### [facility] [address] [place], [place] [id number] [Moles/Vol]140 mmol/GCluhxw677-769Cegftmil [place] [facility] SpecialistComment on above:Performed By: #### CBCAD, MG, URIC, LIPD, PHOS, CMP, DBIL #### [facility] [address] [place], [place] [id number] nitrogen [Mass/Vol]23 mg/dLNormal7-25NoEast [place] [facility] SpecialistComment on above:Performed By: #### CBCAD, MG, URIC, LIPD, PHOS, CMP, DBIL #### [facility] [address] [place], [place] [id number] Panelon 93-48-7586Pisnkkxviae [Mass/Vol]123 mg/dLLow 125-200NoEast [facility] SpecialistComment on above:Result Comment: Low risk < 200mg/dL Borderline risk 201-239 mg/dl High risk > or equal to 240Performed By: #### CBCAD, MG, URIC, LIPD, PHOS, CMP, DBIL #### [facility] [address] [place], [place] [id number] in HDL [Mass/Vol]41 mg/dLNormal>40NoEast [place] [facility] SpecialistComapex medical center on above:Result Comment: High Cardiovascular Risk HDL <40 mg/dL Low Cardiovascular Risk HDL > or equal to 60 mg/dlPerformed By: #### CBCAD, MG, URIC, LIPD, PHOS, CMP, DBIL #### [facility] [address] [place], [place] [id number] in LDL [Mass/Vol]51 mg/dLNormalNortSelect Medical [facility]Health Rehabilitation Hospital - DublinComment on above:Result Comment: LDL ATP III CLASSIFICATION LDL less than 100 mg/dl Optimal LDL 100-129 mg/dl Near or above optimal LDL 130-159 Borderline high LDL 160-189 High LDL greater than 189 mg/dl Very HighPerformed By: #### CBCAD, MG, URIC, LIPD, PHOS, CMP, DBIL #### [facility] [address] [place], [place] [id number] in VLDL [Mass/Vol]31 mg/dLNormalNoEast [facility] SpecialistComment on above:Performed By: #### CBCAD, MG, URIC, LIPD, PHOS, CMP, DBIL #### [facility] [address] [place], [place] [id number].total/Cholesterol in HDL [Mass ratio]3 {ratio} NormalNortUC Health SpecialistComment on above:Performed By: #### CBCAD, MG, URIC, LIPD, PHOS, CMP, DBIL #### [facility] [address] [place], [place] [id number] [Mass/Vol]156 mg/cINyzl35-812Vstvkpcu [place] [facility] SpecialistComment on above:Result Comment: TRIG ATPIII CLASSIFICATIONS TRIG less than 150 mg/dl Normal TRIG 150-199 mg/dl Borderline High TRIG 200-500 mg/dl High TRIG greather than 500 mg/dl Very HighPerformed By: #### CBCAD, MG, URIC, LIPD, PHOS, CMP, DBIL #### [facility] [address] [place], [place] [id number] 04-94-5090Brqmiypsv [Mass/Vol]2.0 mg/dLNormal 1.5-2.3Nortbarrow neurological instituten [facility] SpecialistComment on above:Performed By: #### CBCAD, MG, URIC, LIPD, PHOS, CMP, DBIL #### [facility] [address] [place], [place] [id number] 23-52-8474Toieqbhzn [Mass/Vol]4.2 mg/dLNormal 2.2-4.4NortUC Health SpecialistComment on above:Performed By: #### CBCAD, MG, URIC, LIPD, PHOS, CMP, DBIL #### [facility] [address] [place], [place] [id number] Acidon 73-23-0254UFNC6.3 mg/dLNormal4.0-8.0[facility] SpecialistComment on above:Result Comment: Reference range change 03/03/2017. Prior reference range F 2.4-5.7mg/dL. 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 Derick Mac MD. All medical record entries made by the Marcelibe were at my direction and personally dictated by me. Anthony reviewed the chart and agree that the [...] seen for follow-up of a hospitalization for [facility] D/C 12/11/2020 ICD insert. 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 The device was interrogated it in their office and it appears to be functioning appropriately. Because of all the above he is pleased with his care. He'll be following up henceforth with the [employer] diesel technician mechanic and we advised him were always happy [...] transplantation History of Pacemaker insertion History of Herrick tooth extraction Current Meds Medication NameInstruction Aspirin [...] TABLET UNDER THE TONGUE EVERY 5 MINUTES UPTO 3 DOSES NEEDED FOR CHEST PAIN. predniSONE [...] Vital Signs Recorded: 23Apr2021 05:40PMRecorded: 23Apr2021 03:22PM Cjqzukeb027, RUE, Cfswxrq136, RUE, Sitting Rhnkvibpm09, RUE, Uae[place]ck23, RUE, Sitting Heart Rate61, R Brachial Artery Height5 ft 11 in Dvqllf686 lb BMI Zeqdnpxpjr40.57 kg/m2 BSA Calculated2.16 Tobacco Useb) No Fall [...] . Abdomen: abdomen non-tender (more content not included)...Normal[facility] Tobacco Screening.on [id number] risk assessmentc) Not medically indicatedNov[facility] [address] DO Work Phone: Tobacco use status CPHSb) NoMKind[facility] [place] [address] DO Work Phone: Bilirubin, [employer] [phone]<0.2NormalNorthern [place] Medical SpecialistComment on above:Result Comment: Reference range change 03/03/2017. Prior reference range 0.1-0.3 mg/dL.Performed By: #### CBCAD, MG, URIC, LIPD, PHOS, CMP, DBIL #### [facility] [address] [place], [place] [id number] Blood Count with Auto Diffon [id number] (Bld) [#/Vol]0.06 10*3/uLNormal0.00-0.20[place] Medical SpecialistComment on above:Performed By: #### CBCAD, MG, URIC, LIPD, PHOS, CMP, DBIL #### [facility] [address] [place], [place] [id number]/100 WBC (Bld)0.7 %NormalNorthern Pennsylvania Medical SpecialistComment on above:Performed By: #### CBCAD, MG, URIC, LIPD, PHOS, CMP, DBIL #### [facility] [address] [place], [place] [id number] (Bld) [#/Vol]0.13 10*3/uLNormal0.02-0.50[facility] SpecialistComment on above:Performed By: #### CBCAD, MG, URIC, LIPD, PHOS, CMP, DBIL #### [facility] [address] [place], [place] [id number]/100 WBC (Bld)1.6 %NormalRegency Hospital ToledoComapex medical center on above:Performed By: #### CBCAD, MG, URIC, LIPD, PHOS, CMP, DBIL #### [facility] [address] [place], [place] [id number] distribution width (RBC) [Ratio]14.9 %Normal 11.0-15.0Regency Hospital ToledoComment on above:Performed By: #### CBCAD, MG, URIC, LIPD, PHOS, CMP, DBIL #### [facility] [address] [place], [place] [id number] (Bld) [Volume fraction]51.2 %High38.5-50.0[facility] SpecialistComment on above:Performed By: #### CBCAD, MG, URIC, LIPD, PHOS, CMP, DBIL #### [facility] [address] [place], [place] [id number] (Bld) [Mass/Vol]16.0 g/kBCelnzj19.0-17.1NortherUniversity Hospitals Health System SpecialistComment on above:Performed By: #### CBCAD, MG, URIC, LIPD, PHOS, CMP, DBIL #### [facility] [address] [place], [place] [id number] (Bld) [#/Vol]0.9 10*3/uLNormal0.9-3.9[facility] SpecialistComment on above:Performed By: #### CBCAD, MG, URIC, LIPD, PHOS, CMP, DBIL #### [facility] [address] [place], [place] [id number]/100 WBC (Bld)10.7 %NormalAshtabula [facility] Center SpecialistComment on above:Performed By: #### CBCAD, MG, URIC, LIPD, PHOS, CMP, DBIL #### [facility] [address] [place], [place] [id number] (RBC) [Entitic mass]28.9 hmJblath96.0-33.0NoEast [facility] SpecialistComment on above:Performed By: #### CBCAD, MG, URIC, LIPD, PHOS, CMP, DBIL #### [facility] [address] [place], [place] [id number] (RBC) [Mass/Vol]31.3 g/dLLow32.0-36.0[facility] SpecialistComment on above:Performed By: #### CBCAD, MG, URIC, LIPD, PHOS, CMP, DBIL #### [facility] [address] [place], [place] [id number] (RBC) [Entitic vol]92 oDMtlvqv89-004A[place] [facility] SpecialistComment on above:Performed By: #### CBCAD, MG, URIC, LIPD, PHOS, CMP, DBIL #### [facility] [address] [place], [place] [id number] (Bld) [#/Vol]0.7 10*3/uLNormal0.2-0.9NoEast [facility] SpecialistComment on above:Performed By: #### CBCAD, MG, URIC, LIPD, PHOS, CMP, DBIL #### [facility] [address] [place], [place] [id number]/100 WBC (Bld)8.1 %NormalAshtabula [facility] Medical Center SpecialistComment on above:Performed By: #### CBCAD, MG, URIC, LIPD, PHOS, CMP, DBIL #### [facility] [address] [place], [place] [id number] (Bld) [#/Vol]6.4 10*3/uLNormal1.5-7.8NoEast [facility] SpecialistComment on above:Performed By: #### CBCAD, MG, URIC, LIPD, PHOS, CMP, DBIL #### [facility] [address] [place], [place] [id number]/100 WBC (Bld)78.5 %NormalNoEast [place] [facility] SpecialistComment on above:Performed By: #### CBCAD, MG, URIC, LIPD, PHOS, CMP, DBIL #### [facility] [address] [place], [place] [id number] mean volume (Bld) [Entitic vol]11.20 fLNormal 7.50-12.50NoEast [facility] SpecialistComment on above:Performed By: #### CBCAD, MG, URIC, LIPD, PHOS, CMP, DBIL #### [facility] [address] [place], [place] [id number] (Bld) [#/Vol]295 10*3/nSTqcfac826-860Noxlwctb [facility] SpecialistComment on above:Performed By: #### CBCAD, MG, URIC, LIPD, PHOS, CMP, DBIL #### [facility] [address] [place], [place] [id number] (Bld) [#/Vol]5.54 10*6/uLNormal4.20-5.80NoEast [place] [facility] SpecialistComment on above:Performed By: #### CBCAD, MG, URIC, LIPD, PHOS, CMP, DBIL #### [facility] [address] [place], [place] [id number]-EV26.0 mBZsjb57.0-50.0NoEast [facility] Specialist Comment on above:Performed By: #### CBCAD, MG, URIC, LIPD, PHOS, CMP, DBIL #### [facility] [address] [place], [place] [id number] (Bld) [#/Vol]8.2 10*3/uLNormal3.8-11.0NoEast [place] [facility] SpecialistComment on above:Performed By: #### CBCAD, MG, URIC, LIPD, PHOS, CMP, DBIL #### [facility] [address] [place], [place] [id number] Metabolic Panelon 22-93-4888Ybsbbqb [Mass/Vol] 4.9 g/dLNormal3.6-5.1[facility]herUniversity Hospitals Health System SpecialistComment on above:Performed By: #### CBCAD, MG, URIC, LIPD, PHOS, CMP, DBIL #### [facility] [address] [place], [place] [id number]/Globulin [Mass ratio]2.5 {ratio}Normal1.0-2.5NoOhioHealth Grady Memorial HospitalComment on above:Performed By: #### CBCAD, MG, URIC, LIPD, PHOS, CMP, DBIL #### [facility] [address] [place], [place] [id number] [Catalytic activity/Vol]86 U/YMwcsew84-071Iuartram [facility] SpecialistComment on above:Performed By: #### CBCAD, MG, URIC, LIPD, PHOS, CMP, DBIL #### [facility] [address] [place], [place] [id number] [Catalytic activity/Vol]33 U/LNormal9-46NoEast [facility] SpecialistComment on above:Result Comment: 03/17/2021 Female reference range changed.Performed By: #### CBCAD, MG, URIC, LIPD, PHOS, CMP, DBIL #### [facility] [address] [place], [place] [id number] gap [Moles/Vol]18 mmol/BEzyond43-29Uqyzxsjm [facility] SpecialistComment on above:Result Comment: Effective 04/22/2019 reference range changed.Performed By: #### CBCAD, MG, URIC, LIPD, PHOS, CMP, DBIL #### [facility] [address] [place], [place] [id number] [Catalytic activity/Vol]27 U/HJezbaa62-38Sidzwcyv [facility] SpecialistComment on above:Performed By: #### CBCAD, MG, URIC, LIPD, PHOS, CMP, DBIL #### [facility] [address] [place], [place] [id number] [Mass/Vol]0.38 mg/dLNormal0.30-1.20NoEast [place] [facility] SpecialistComment on above:Performed By: #### CBCAD, MG, URIC, LIPD, PHOS, CMP, DBIL #### [facility] [address] [place], [place] [id number]/CREA12 RatioNormal6-22NoEast [facility] Specialist Comment on above:Performed By: #### CBCAD, MG, URIC, LIPD, PHOS, CMP, DBIL #### [facility] [address] [place], [place] [id number] [Mass/Vol]10.3 mg/dLHigh8.6-10.2[facility]herUniversity Hospitals Health System SpecialistComment on above:Performed By: #### CBCAD, MG, URIC, LIPD, PHOS, CMP, DBIL #### [facility] [address] [place], [place] [id number] [Moles/Vol]105 mmol/NHqjnhf34-802Wtknussj [facility] SpecialistComment on above:Performed By: #### CBCAD, MG, URIC, LIPD, PHOS, CMP, DBIL #### [facility] [address] [place], [place] [id number] [Moles/Vol]23 mmol/BIruevt83-05Xhkpwidr [facility] SpecialistComment on above:Performed By: #### CBCAD, MG, URIC, LIPD, PHOS, CMP, DBIL #### [facility] [address] [place], [place] [id number] [Mass/Vol]1.2 mg/dLNormal0.7-1.4NortUC Health SpecialistComment on above:Performed By: #### CBCAD, MG, URIC, LIPD, PHOS, CMP, DBIL #### [facility] [address] [place], [place] [id number] mL/min/1.83v8Rvrtsh>60NoEast [place] [facility] SpecialistComment on above:Performed By: #### CBCAD, MG, URIC, LIPD, PHOS, CMP, DBIL #### [facility] [address] [place], [place] [id number] mL/min/1.91g2Gojohu>60NortUC Health SpecialistComment on above:Performed By: #### CBCAD, MG, URIC, LIPD, PHOS, CMP, DBIL #### [facility] [address] [place], [place] [id number] (S) [Mass/Vol]2.0 g/dLNormal1.9-3.7NoEast [place] [facility] SpecialistComment on above:Performed By: #### CBCAD, MG, URIC, LIPD, PHOS, CMP, DBIL #### [facility] [address] [place], [place] [id number] [Mass/Vol]125 mg/kIUovk05-34Novbckjv [facility] SpecialistComment on above:Result Comment: For FASTING Glucose --- ADA reference ranges: Normal 65-99 mg/dl Prediabetes 100-125 Diabetes >/= 126Performed By: #### CBCAD, MG, URIC, LIPD, PHOS, CMP, DBIL #### [facility] [address] [place], [place] [id number] [Moles/Vol]4.7 mmol/LNormal3.5-5.5NortUC Health SpecialistComment on above:Performed By: #### CBCAD, MG, URIC, LIPD, PHOS, CMP, DBIL #### [facility] [address] [place], [place] [id number] [Mass/Vol]6.9 g/dLNormal6.1-8.1NortherUniversity Hospitals Health System SpecialistComment on above:Performed By: #### CBCAD, MG, URIC, LIPD, PHOS, CMP, DBIL #### [facility] [address] [place], [place] [id number] [Moles/Vol]141 mmol/PKcakig894-452Aicommky [place] [facility] SpecialistComment on above:Performed By: #### CBCAD, MG, URIC, LIPD, PHOS, CMP, DBIL #### [facility] [address] [place], [place] [id number] nitrogen [Mass/Vol]14 mg/dLNormal7-25NortUC Health SpecialistComment on above:Performed By: #### CBCAD, MG, URIC, LIPD, PHOS, CMP, DBIL #### [facility] [address] [place], [place] [id number] Panelon 09-65-2686Bxwefxlhufi [Mass/Vol]123 mg/dLLow 125-200NoEast [facility] SpecialistComment on above:Result Comment: Low risk < 200mg/dL Borderline risk 201-239 mg/dl High risk > or equal to 240Performed By: #### CBCAD, MG, URIC, LIPD, PHOS, CMP, DBIL #### [facility] [address] [place], [place] [id number] in HDL [Mass/Vol]42 mg/dLNormal>40NoEast [facility] SpecialistComment on above:Result Comment: High Cardiovascular Risk HDL <40 mg/dL Low Cardiovascular Risk HDL > or equal to 60 mg/dlPerformed By: #### CBCAD, MG, URIC, LIPD, PHOS, CMP, DBIL #### [facility] [address] [place], [place] [id number] in LDL [Mass/Vol]58 mg/dLNormalNortUC Health SpecialistComment on above:Result Comment: LDL ATP III CLASSIFICATION LDL less than 100 mg/dl Optimal LDL 100-129 mg/dl Near or above optimal LDL 130-159 Borderline high LDL 160-189 High LDL greater than 189 mg/dl Very HighPerformed By: #### CBCAD, MG, URIC, LIPD, PHOS, CMP, DBIL #### [facility] [address] [place], [place] [id number] in VLDL [Mass/Vol]23 mg/dLNormalNortUC Health SpecialistComment on above:Performed By: #### CBCAD, MG, URIC, LIPD, PHOS, CMP, DBIL #### [facility] [address] [place], [place] [id number].total/Cholesterol in HDL [Mass ratio]3 {ratio} NormalNortbarrow neurological instituten [facility] SpecialistComment on above:Performed By: #### CBCAD, MG, URIC, LIPD, PHOS, CMP, DBIL #### [facility] [address] [place], [place] [id number] [Mass/Vol]113 mg/oWKsjzgw61-040Qhtujevv [facility] SpecialistComment on above:Result Comment: TRIG ATPIII CLASSIFICATIONS TRIG less than 150 mg/dl Normal TRIG 150-199 mg/dl Borderline High TRIG 200-500 mg/dl High TRIG greather than 500 mg/dl Very HighPerformed By: #### CBCAD, MG, URIC, LIPD, PHOS, CMP, DBIL #### [facility] [address] [place], [place] [id number] 30-58-1329Djnlngzms [Mass/Vol]1.9 mg/dLNormal 1.5-2.3NortUC Health SpecialistComment on above:Performed By: #### CBCAD, MG, URIC, LIPD, PHOS, CMP, DBIL #### [facility] [address] [place], [place] [id number] 52-77-3745Mweunhkac [Mass/Vol]4.1 mg/dLNormal 2.2-4.4NoEast [facility] SpecialistComment on above:Performed By: #### CBCAD, MG, URIC, LIPD, PHOS, CMP, DBIL #### [facility] [address] [place], [place] [id number] Acidon 63-63-2392ORLB8.5 mg/dLNormal4.0-8.0NoEast [facility] SpecialistComment on above:Result Comment: Reference range change 03/03/2017. Prior reference range F 2.4-5.7mg/dL. M 3.4-7.0 mg/dL.Performed By: #### CBCAD, MG, URIC, LIPD, PHOS, CMP, DBIL #### [facility] [address] [place] [id number] CHEST 2 VWSon 77-04-9663SJZ CHEST 2 SUniversAdena [facility] Department of Radiology [address] [place] [id number] Patient Name: VISHAL DUKE : 1960 Sex: M Age: Race: White Pt. Location: [facility] Patient Status: D Ordered Date: 12/24/2020 3:50:00 PM Completed Date: 12/24/2020 03:48 PM Requesting Provider: ZULY VERDUZCO Attending Provider: Report Copy To: Signs & Symptoms: U07.1 COVID-19 I10 History: Solange Comments: covid Exam: [facility] CHEST 2 VWS [facility] CHEST 2 VWS 12/24/2020 3:48 [...] process. Electronically signed: Giovana Garrido. Transcribed by: [email or web address], User Resident: Electronically Signed by: GIOVANA GARRIDO @ 12/25/2020 12:24 PMNMercy Health Defiance HospitalComment on above:Order Comment: No: Do not add to previous draw CV'D BY [facility] AT 1240Glucose Poct Glucometerson 31-89-6228Gkgfnjt0Dfp2: Cleaned MeterFulton County Health CenterComment on above:Result Comment: PERFORMED BY: [place] [address] PATHOLOGIST [employer] FEEDER SHYANN OLIVIER M.D.Performed By: #### BMP, HS TROP, CBC, PT, PTT, BNP #### [place] [address] USAGlucose [Mass/Vol]147 mg/dLFulton County Health CenterComment on above:Result Comment: Random Glucose Reference Range is dependent on time and content of last meal. Glucose of more than 200 mg/dL in a nonstressed, ambulatory subject supports the diagnosis of Diabetes Mellitus.Performed By: #### BMP, HS TROP, CBC, PT, PTT, BNP #### [facility] [address] [place] [address] USAGlucose [Mass/Vol]107 mg/dLFulton County Health CenterComment on above:Result Comment: Random Glucose Reference Range is dependent on time and content of last meal. Glucose of more than 200 mg/dL in a nonstressed, ambulatory subject supports the diagnosis of Diabetes Mellitus. PERFORMED BY: [address] [address] PATHOLOGIST [employer] SHYANN OLIVIER M.D.Performed By: #### BMP, HS TROP, CBC, PT, PTT, BNP #### [address] [address] USAXR chest 2V*on 33-14-8731IM chest 2V*[facility] Main [address] [address] XRay Report Signed Patient: Vishal Duke MR#: [id number] : 1960 Acct:[id number] Age/Sex: 59 / M ADM Date: 12/08/20 Loc: Room: [address] [place] [address] Type: ADM IN Attending Dr: Leonardo Storey [...] Farah Jr., M.D.12/12/2020 9:15 AM Dictation Location: [place] [address] Transcribed By: [facility] 12/12/20914 Dictated By: Faraz Farah Jr, MD 12/12/20908 Signed By: 12/12/2015NoSelect Medical Specialty Hospital [facility], IncBasic Metabolic Panelon 49-56-7144Mtalcnf [Mass/Vol]8.9 mg/dLNormal8.2-10.2FUniversity Hospitals Cleveland Medical CenterComment on above:Performed By: #### BMP, HS TROP, CBC, PT, PTT, BNP #### [facility] [address] [place] [address] USAChloride [Moles/Vol]105 mmol/JMfotvb61-910LlgyvoadnThe Metrohealth SystemComment on above:Performed By: #### BMP, HS TROP, CBC, PT, PTT, BNP #### [facility] [address] [place] [address] USACO2 [Moles/Vol]22.1 mmol/NIozybv08.0-30.0The Metrohealth SystemComment on above:Performed By: #### BMP, HS TROP, CBC, PT, PTT, BNP #### [facility] [address] [place] [address] USACreatinine [Mass/Vol]1.08 mg/dLNormal0.64-1.27The Metrohealth SystemComment on above:Performed By: #### BMP, HS TROP, CBC, PT, PTT, BNP #### [place] [address] USACreatinine Clr Calc Uczvnadq65.44Fulton County Health CenterComment on above:Result Comment: PERFORMED BY: [place] [address] PATHOLOGIST [employer] F[employer] FE[employer]ER SHYANN OLIVIER M.D.Performed By: #### BMP, HS TROP, CBC, PT, PTT, BNP #### [place] [address] USAEstimated GFR ( Nata> 60Fulton County Health CenterComment on above:Result Comment: GFR estimated reference range: According to KDOQI guidelines, <60 ml/min/1.73m2 is sufficient to diagnose a patient with chronic kidney disease.Performed By: #### BMP, HS TROP, CBC, PT, PTT, BNP #### [place] [address] USAEstimated GFR (Non- Am> 60Fult[facility] County Health CenterComment on above:Performed By: #### BMP, HS TROP, CBC, PT, PTT, BNP #### [place] [address] USAGlucose [Mass/Vol]138 mg/pQDurk13-417GmjxaotjjThe Metrohealth SystemComment on above:Result Comment: Random Glucose Reference Range is dependent on time and content of last meal. Glucose of more than 200 mg/dL in a nonstressed, ambulatory subject supports the diagnosis of Diabetes Mellitus. ADA recommended reference rangePerformed By: #### BMP, HS TROP, CBC, PT, PTT, BNP #### [place] [address] USAPotassium [Moles/Vol]4.2 mmol/LNormal3.5-5.1FUniversity Hospitals Cleveland Medical CenterComment on above:Performed By: #### BMP, HS TROP, CBC, PT, PTT, BNP #### [place] [address] USASodium [Moles/Vol]138 mmol/LNrpzhp070-596GsapybocfThe Metrohealth SystemComment on above:Performed By: #### BMP, HS TROP, CBC, PT, PTT, BNP #### [place] [address] USAUrea nitrogen [Mass/Vol]11 mg/dLNormal9-23The Metrohealth SystemComment on above:Performed By: #### BMP, HS TROP, CBC, PT, PTT, BNP #### [place] [address] USAComplete Blood Count Auto Diffon 54-54-8255Dpueezcre (Bld) [#/Vol]0.1 10*3/uLNormal0.0-0.2FUniversity Hospitals Cleveland Medical CenterComment on above:Result Comment: PERFORMED BY: [place] [address] PATHOLOGIST [employer] F[employer] FE[employer]ER SHYANN OLIVIER M.D.Performed By: #### BMP, HS TROP, CBC, PT, PTT, BNP #### [place] [address] USABasophils/100 WBC (Bld)0.7 %Normal.The Metrohealth SystemComment on above:Performed By: #### BMP, HS TROP, CBC, PT, PTT, BNP #### [place] [address] USAEosinophils (Bld) [#/Vol]0.1 10*3/uLNormal0.0-0.45 The Metrohealth SystemComment on above:Performed By: #### BMP, HS TROP, CBC, PT, PTT, BNP #### [facility] [address] [place] [address] USAEosinophils/100 WBC (Bld)1.3 %Normal.The Metrohealth SystemComment on above:Performed By: #### BMP, HS TROP, CBC, PT, PTT, BNP #### [place] [address] USAErythrocyte distribution width (RBC) [Ratio]15.2 %High 12.0-14.8The Metrohealth SystemComment on above:Performed By: #### BMP, HS TROP, CBC, PT, PTT, BNP #### [place] [address] USAHematocrit (Bld) [Volume fraction]38.0 %Low38.8-50.0 The Metrohealth SystemComment on above:Performed By: #### BMP, HS TROP, CBC, PT, PTT, BNP #### [place] [address] USAHemoglobin (Bld) [Mass/Vol]13.0 g/sCBfnkca18.0-17.0 The Metrohealth SystemComment on above:Performed By: #### BMP, HS TROP, CBC, PT, PTT, BNP #### [place] [address] USALymphocytes (Bld) [#/Vol]0.7 10*3/uLLow1.00-4.8The Metrohealth SystemComment on above:Performed By: #### BMP, HS TROP, CBC, PT, PTT, BNP #### [place] [address] USALymphocytes/100 WBC (Bld)7.7 %Normal.The Metrohealth SystemComment on above:Performed By: #### BMP, HS TROP, CBC, PT, PTT, BNP #### [place] [address] USAMCH (RBC) [Entitic mass]31.5 wfKiuepb29.5-35.2FUniversity Hospitals Cleveland Medical CenterComment on above:Performed By: #### BMP, HS TROP, CBC, PT, PTT, BNP #### [facility] [address] [place] [address] USAMCV (RBC) [Entitic vol]91.7 xJZyrysv62.5-101The Metrohealth SystemComapex medical center on above:Performed By: #### BMP, HS TROP, CBC, PT, PTT, BNP #### [facility] [address] [place] [address] USAMean Corpuscular HGB Conc34.3 g/aWTvrblb18.5-35.6FUniversity Hospitals Cleveland Medical CenterComapex medical center on above:Performed By: #### BMP, HS TROP, CBC, PT, PTT, BNP #### [place] [address] USAMonocytes (Bld) [#/Vol]0.9 10*3/uLHigh0.0-0.8The Metrohealth SystemComapex medical center on above:Performed By: #### BMP, HS TROP, CBC, PT, PTT, BNP #### [place] [address] USAMonocytes/100 WBC (Bld)9.4 %Normal.The Metrohealth SystemComapex medical center on above:Performed By: #### BMP, HS TROP, CBC, PT, PTT, BNP #### [place] [address] USANeutrophils (Bld) [#/Vol]7.5 10*3/uLNormal1.8-7.7FUniversity Hospitals Cleveland Medical CenterComapex medical center on above:Performed By: #### BMP, HS TROP, CBC, PT, PTT, BNP #### [place] [address] USANeutrophils/100 WBC (Bld)80.9 %Normal.The Metrohealth SystemComapex medical center on above:Performed By: #### BMP, HS TROP, CBC, PT, PTT, BNP #### [place] [address] USANucleated RBC/100 WBC (Bld) [Ratio]0.0 %Normal0-0.5 The Metrohealth SystemComment on above:Performed By: #### BMP, HS TROP, CBC, PT, PTT, BNP #### [place] [address] USAPlatelet mean volume (Bld) [Entitic vol]7.6 fLNormal 6.6-10.1FUniversity Hospitals Cleveland Medical CenterComment on above:Performed By: #### BMP, HS TROP, CBC, PT, PTT, BNP #### [place] [address] USAPlatelets (Bld) [#/Vol]385 10*3/vQRwayes389-347AopazwbguThe Metrohealth SystemComment on above:Performed By: #### BMP, HS TROP, CBC, PT, PTT, BNP #### [place] [address] USARBC (Bld) [#/Vol]4.14 10*6/uLNormal3.90-5.60The Metrohealth SystemComment on above:Performed By: #### BMP, HS TROP, CBC, PT, PTT, BNP #### [place] [address] USAWBC (Bld) [#/Vol]9.3 10*3/uLNormal4.5-11.0The Metrohealth SystemComment on above:Performed By: #### BMP, HS TROP, CBC, PT, PTT, BNP #### [place] [address] USAGlucose Poct Glucometerson 42-73-9453Zedbonc [Mass/Vol]129 mg/dLNoSelect Medical Specialty Hospital - [facility], IncComment on above:Result Comment: Random Glucose Reference Range is dependent on time and content of last meal. Glucose of more than 200 mg/dL in a nonstressed, ambulatory subject supports the diagnosis of Diabetes Mellitus. PERFORMED BY: [place] [address] PATHOLOGIST SH[employer]DED F[employer] FEEDER SHYANN OLIVIER M.D.Performed By: #### BMP, HS TROP, CBC, PT, PTT, BNP #### [facility] [address] [place] [address] USAPartial Thromboplastin Timeon 06-56-0780xBZT Coag (Bld) [Time]32.7 pIqehxg16.1-36.5FUniversity Hospitals Cleveland Medical CenterComment on above: Result Comment: PERFORMED BY: [place] [address] PATHOLOGIST [employer]DED F[employer] FE[employer]ER SHYANN OLIVIER M.D.Performed By: #### BMP, HS TROP, CBC, PT, PTT, BNP #### [address] [address] USAProthrombin Time INRon 06-49-1343THI Coag (PPP) [Relative time]1.2 {INR}NormalThe Metrohealth SystemComment on above:Result Comment: INR Therapeutic Range A) Pre- and [...] patients with mechanical heart valves: 3 - 4.5Performed By: #### BMP, HS TROP, CBC, PT, PTT, BNP #### [address] [address] USAPT Coag (PPP) [Time]13.8 sHigh9.0-12.9The Metrohealth SystemComment on above:Performed By: #### BMP, HS TROP, CBC, PT, PTT, BNP #### [address] [address] USAXR chest 1V portableon 07-31-0591KW chest 1V portable [facility] [place] [address] [place] [address] XRay Report Signed Patient: Vishal Duke MR#: [id number] : 1960 Acct:[id number] Age/Sex: 59 / M ADM Date: 12/08/20 Loc: Room: [address] [place] [address] Type: ADM IN Attending Dr: Leonardo Storey [...] Biju Ag M.D.12/11/2020 12:40 PM Dictation Location: [place] [address] Transcribed By: [facility] 12/11/20 1240 Dictated By: Biju Ag MD 12/11/20 1236 Signed By: 12/11/20 1240NoSelect Medical Specialty Hospital [facility], IncComplete Blood Count Auto Diffon 08-74-5681Cjxeabmql (Bld) [#/Vol]0.0 10*3/uLNormal0.0-0.2FUniversity Hospitals Cleveland Medical CenterComment on above:Result Comment: PERFORMED BY: [place] [address] PATHOLOGIST SHREDDED F[employer]ER H[employer]PER FEEDER SHYANN OLIVIER M.D.Performed By: #### BMP, HS TROP, CBC, PT, PTT, BNP #### [facility] [address] [place] [address] USABasophils/100 WBC (Bld)0.3 %Normal.The Metrohealth SystemComment on above:Performed By: #### BMP, HS TROP, CBC, PT, PTT, BNP #### [facility] [address] [place] [address] USAEosinophils (Bld) [#/Vol]0.1 10*3/uLNormal0.0-0.45 The Metrohealth SystemComment on above:Performed By: #### BMP, HS TROP, CBC, PT, PTT, BNP #### [place] [address] USAEosinophils/100 WBC (Bld)0.5 %Normal.The Metrohealth SystemComment on above:Performed By: #### BMP, HS TROP, CBC, PT, PTT, BNP #### [place] [address] USAErythrocyte distribution width (RBC) [Ratio]15.1 %High 12.0-14.8The Metrohealth SystemComment on above:Performed By: #### BMP, HS TROP, CBC, PT, PTT, BNP #### [place] [address] USAHematocrit (Bld) [Volume fraction]39.5 %Fqkzfl26.8-50.0 The Metrohealth SystemComment on above:Performed By: #### BMP, HS TROP, CBC, PT, PTT, BNP #### [place] [address] USAHemoglobin (Bld) [Mass/Vol]13.1 g/oILufyvt48.0-17.0 The [facility] SystemComment on above:Performed By: #### BMP, HS TROP, CBC, PT, PTT, BNP #### [place] [address] USALymphocytes (Bld) [#/Vol]0.5 10*3/uLLow1.00-4.8The [facility] SystemComment on above:Performed By: #### BMP, HS TROP, CBC, PT, PTT, BNP #### [place] [address] USALymphocytes/100 WBC (Bld)4.0 %Normal.The [facility] SystemComment on above:Performed By: #### BMP, HS TROP, CBC, PT, PTT, BNP #### [place] [id number] USAMCH (RBC) [Entitic mass]31.2 nnZudlox07.5-35.2FUniversity Hospitals Cleveland Medical CenterComment on above:Performed By: #### BMP, HS TROP, CBC, PT, PTT, BNP #### [address]V (RBC) [Entitic vol]94.1 gITvfqfq40.5-101The [facility] SystemComment on above:Performed By: #### BMP, HS TROP, CBC, PT, PTT, BNP #### [place] [address] USAMean Corpuscular HGB Conc33.2 g/tOKldvim90.5-35.6FUniversity Hospitals Cleveland Medical CenterComment on above:Performed By: #### BMP, HS TROP, CBC, PT, PTT, BNP #### [place] [address] USAMonocytes (Bld) [#/Vol]0.8 10*3/uLNormal0.0-0.8The [facility] SystemComment on above:Performed By: #### BMP, HS TROP, CBC, PT, PTT, BNP #### [place] [address] USAMonocytes/100 WBC (Bld)6.6 %Normal.The Metrohealth SystemComment on above:Performed By: #### BMP, HS TROP, CBC, PT, PTT, BNP #### [place] [address] USANeutrophils (Bld) [#/Vol]10.5 10*3/uLHigh1.8-7.7FUniversity Hospitals Cleveland Medical CenterComment on above:Performed By: #### BMP, HS TROP, CBC, PT, PTT, BNP #### [place] [address] USANeutrophils/100 WBC (Bld)88.6 %Normal.The Metrohealth SystemComment on above:Performed By: #### BMP, HS TROP, CBC, PT, PTT, BNP #### [facility] [address] [place] [address] USANucleated RBC/100 WBC (Bld) [Ratio]0.1 %Normal0-0.5 The Metrohealth SystemComment on above:Performed By: #### BMP, HS TROP, CBC, PT, PTT, BNP #### [facility] [address] [place] [address] USAPlatelet mean volume (Bld) [Entitic vol]8.1 fLNormal 6.6-10.1FUniversity Hospitals Cleveland Medical CenterComment on above:Performed By: #### BMP, HS TROP, CBC, PT, PTT, BNP #### [place] [address] USAPlatelets (Bld) [#/Vol]403 10*3/iPUpwswl399-606GbuayzoxsThe Metrohealth SystemComment on above:Performed By: #### BMP, HS TROP, CBC, PT, PTT, BNP #### [place] [address] USARBC (Bld) [#/Vol]4.20 10*6/uLNormal3.90-5.60The Metrohealth SystemComment on above:Performed By: #### BMP, HS TROP, CBC, PT, PTT, BNP #### [place] [address] USAWBC (Bld) [#/Vol]11.9 10*3/uLHigh4.5-11.0The Metrohealth SystemComment on above:Performed By: #### BMP, HS TROP, CBC, PT, PTT, BNP #### [place] [address] USAComprehensive Metabolic Panelon 15-91-2487Uxpsktn [Mass/Vol]3.1 g/dLLow3.2-5.5FUniversity Hospitals Cleveland Medical CenterComment on above: Result Comment: --- 12/10/20 1241 --- Alb previously reported as: 2.8 L gm/dLPerformed By: #### BMP, HS TROP, CBC, PT, PTT, BNP #### [place] [address] USAAlbumin/Globulin [Mass ratio]0.9 {ratio}[facility]ulton County Health CenterComment on above:Result Comment: --- 12/10/201240 --- A/G Ratio previously reported as: 0.8Performed By: #### BMP, HS TROP, CBC, PT, PTT, BNP #### [place] [address] USAALP [Catalytic activity/Vol]98 U/UWqrq55-58YjhkhqgybThe Metrohealth SystemComment on above:Result Comment: --- 12/10/201241 --- Alk Phos previously reported as: 91 U/LPerformed By: #### BMP, HS TROP, CBC, PT, PTT, BNP #### [place] [address] USAALT [Catalytic activity/Vol]123 U/MHadr34-10SljeioiezThe Metrohealth SystemComment on above:Result Comment: --- 12/10/201241 --- ALT previously reported as: 116 H U/LPerformed By: #### BMP, HS TROP, CBC, PT, PTT, BNP #### [place] [address] USAAST [Catalytic activity/Vol]91 U/TCree09-31ZjnudwfepThe Metrohealth SystemComment on above:Result Comment: --- 12/10/201241 --- AST previously reported as: 82 H U/LPerformed By: #### BMP, HS TROP, CBC, PT, PTT, BNP #### [place] [address] USABilirubin [Mass/Vol]0.7 mg/dLNormal0.3-1.2FUniversity Hospitals Cleveland Medical CenterComment on above:Result Comment: --- 12/10/201240 --- TOTAL BILI previously reported as: 0.9 mg/dLPerformed By: #### BMP, HS TROP, CBC, PT, PTT, BNP #### [place] [address] USACalcium [Mass/Vol]9.0 mg/dLNormal8.2-10.2FUniversity Hospitals Cleveland Medical CenterComment on above:Result Comment: --- 12/10/201240 --- CA previously reported as: 8.2 mg/dLPerformed By: #### BMP, HS TROP, CBC, PT, PTT, BNP #### [facility] [address] [place] [address] USAChloride [Moles/Vol]99 mmol/OWozlzw79-778CglokbukrThe Metrohealth SystemComment on above:Result Comment: --- 12/10/201240 --- CL previously reported as: 97 mmol/LPerformed By: #### BMP, HS TROP, CBC, PT, PTT, BNP #### [place] [address] USACO2 [Moles/Vol]20.4 mmol/LLow22.0-30.0The Metrohealth SystemComment on above:Result Comment: --- 12/10/201240 --- CO2 previously reported as: 21.7 L mmol/LPerformed By: #### BMP, HS TROP, CBC, PT, PTT, BNP #### [place] [address] USACreatinine [Mass/Vol]1.09 mg/dLNormal0.64-1.27The Metrohealth SystemComment on above:Result Comment: --- 12/10/201239 --- Creat previously reported as: 1.01 mg/dLPerformed By: #### BMP, HS TROP, CBC, PT, PTT, BNP #### [place] [address] USACreatinine Clr Calc Lkglsgvg40.72NoalThe Metrohealth SystemComment on above:Result Comment: --- 12/10/201239 --- Creat Calc PHA previously reported as: 83.87 PERFORMED BY: [place] [address] PATHOLOGIST [employer] SHYANN OLIVIER M.D.Performed By: #### BMP, HS TROP, CBC, PT, PTT, BNP #### [facility] [address] [place] [address] USAEstimated GFR ( Nata> 60NoSelect Medical Specialty Hospital - [facility], IncComment on above:Result Comment: --- 12/10/201226 --- GFReAA previously reported as: > 60 mL/Min GFR estimated reference range: According to KDOQI guidelines, <60 ml/min/1.73m2 is sufficient to diagnose a patient with chronic kidney disease.Performed By: #### BMP, HS TROP, CBC, PT, PTT, BNP #### [facility] [address] [place] [address] USAEstimated GFR (Non- Am> 60NoSelect Medical Specialty Hospital - [facility], IncComment on above:Result Comment: --- 12/10/201226 --- GFRe previously reported as: > 60 mL/MinPerformed By: #### BMP, HS TROP, CBC, PT, PTT, BNP #### [address] [address] USAGlobulin (S) [Mass/Vol]3.3 g/dLFulton County Health CenterComment on above:Result Comment: --- 12/10/201226 --- Glob previously reported as: 3.3 gm/dLPerformed By: #### BMP, HS TROP, CBC, PT, PTT, BNP #### [address] [address] USAGlucose [Mass/Vol]160 mg/iOBtri78-697Lotwvoidw00 Marquez StreetComment on above:Result Comment: Results called at 0722 on 12/10/20 --- 12/10/20 1239 --- Glu previously reported as: 596 #*H mg/dL Results called at 0722 on 12/10/20 Random Glucose Reference Range is dependent on time and content of last meal. Glucose of more than 200 mg/dL in a nonstressed, ambulatory subject supports the diagnosis of Diabetes Mellitus. ADA recommended reference rangePerformed By: #### BMP, HS TROP, CBC, PT, PTT, BNP #### [address] [address] USAPotassium [Moles/Vol]4.1 mmol/LNormal3.5-5.1FUniversity Hospitals Cleveland Medical CenterComment on above:Result Comment: --- 12/10/20 124 --- K previously reported as: 3.8 mmol/LPerformed By: #### BMP, HS TROP, CBC, PT, PTT, BNP #### [facility] [address] [place] [address] USAProtein [Mass/Vol]6.4 g/dLNormal6.1-7.9The Metrohealth SystemComment on above:Result Comment: --- 12/10/20 124 --- TP previously reported as: 6.1 gm/dLPerformed By: #### BMP, HS TROP, CBC, PT, PTT, BNP #### [place] [address] USASodium [Moles/Vol]134 mmol/CVbq194-970IlscmuorkThe Metrohealth SystemComment on above:Result Comment: --- 12/10/201240 --- NA previously reported as: 128 # L mmol/LPerformed By: #### BMP, HS TROP, CBC, PT, PTT, BNP #### [facility] [address] [place] [address] USAUrea nitrogen [Mass/Vol]10 mg/dLNormal9-23The Metrohealth SystemComment on above:Result Comment: --- 12/10/20 1239 --- BUN previously reported as: 10 mg/dLPerformed By: #### BMP, HS TROP, CBC, PT, PTT, BNP #### [facility] [address] [place] [address] USAECG 12 lead ECGon 40-71-1198FVY 12 lead ECGPROVID[facility] [place] [address] [place] [address] Electrocardiograph Report Signed Patient: Vishal Duke MR#: [id number] : 1960 Acct:[id number] Age/Sex: 59 / M ADM Date: 12/08/20 Loc: Room: [address] [place] [address] Type: ADM IN Attending Dr: Leonardo Storey [...] in Lateral leads Confirmed by DAT FRANK [facility], KADEN ([id number]) on 12/10/2020 9:00:58 AM Referred By: Electronically Signed By:KADEN DAUGHERTY MD [facility] Transcribed By: MUS Dictated By: Kaden Daugherty MD, FAC 12/10/20 0652 Signed By: 12/10/20 0901Norm[facility] echo transthoracicon 21-23-0468GCY echo transthoracicPROVIDENCE [place] [address] Echocardiogram Signed Patient: Vishal Duke MR#: [id number] : 1960 Acct:[id number] Age/Sex: 59 / M ADM Date: 12/08/20 Loc: Room: [address] [place] [address] Type: ADM IN Attending Dr: Leonardo Storey [...] Fu DO 12/10/20 0816 Signed By: 12/10/20 1150Fulton County Health CenterGlucose Poct Glucometerson 70-62-7663Hzgmxiy [Mass/Vol]157 mg/dLNoSelect Medical Specialty Hospital [facility], IncComment on above:Result Comment: Random Glucose Reference Range is dependent on time and content of last meal. Glucose of more than 200 mg/dL in a nonstressed, ambulatory subject supports the diagnosis of Diabetes Mellitus. PERFORMED BY: [place] [address] PATHOLOGIST SHREDDED F[employer]ER [employer]ER SHYANN OLIVIER M.D.Performed By: #### BMP, HS TROP, CBC, PT, PTT, BNP #### [place] [address] BWAZqfcppo1Yfq0: Cleaned MeterFulton County Health CenterComment on above:Result Comment: PERFORMED BY: [place] [address] PATHOLOGIST [employer] F[employer]ER SHYANN OLIVIER M.D.Performed By: #### BMP, HS TROP, CBC, PT, PTT, BNP #### [place] [address] USAGlucose [Mass/Vol]122 mg/dLFulton County Health CenterComment on above:Result Comment: Random Glucose Reference Range is dependent on time and content of last meal. Glucose of more than 200 mg/dL in a nonstressed, ambulatory subject supports the diagnosis of Diabetes Mellitus.Performed By: #### BMP, HS TROP, CBC, PT, PTT, BNP #### [place] [address] USAGlucose [Mass/Vol]179 mg/dLFulton County Health CenterComment on above:Result Comment: Random Glucose Reference Range is dependent on time and content of last meal. Glucose of more than 200 mg/dL in a nonstressed, ambulatory subject supports the diagnosis of Diabetes Mellitus. PERFORMED BY: [place] [address] PATHOLOGIST [employer] F[employer] SHYANN OLIVIER M.D.Performed By: #### BMP, HS TROP, CBC, PT, PTT, BNP #### [place] [address] USATroponin I High Sensitivityon 77-28-5259Gjzrsssd I High Oxjkfmshxrx6187 pg/mLOff scale high0-20The Metrohealth SystemComment on above:Result Comment: PERFORMED BY: [place] [address] PATHOLOGIST [employer]REDDED F[employer] SHYANN OLIVIER M.D.Performed By: #### BMP, HS TROP, CBC, PT, PTT, BNP #### [facility] [address] [place] [address] USAXR chest 1V portableon 14-33-3969BX chest 1V portable [facility] [place] [address] [place] [address] XRay Report Signed Patient: Vishal Duke MR#: [id number] : 1960 Acct:[id number] Age/Sex: 59 / M ADM Date: 12/08/20 Loc: Room: [address] [place] [address] Type: ADM IN Attending Dr: Leonardo Storey [...] Ajith Saleh M.D.12/10/2020 8:05 AM Dictation Location: [place] [address] Transcribed By: [facility] 12/10/20804 Dictated By: Ajith Saleh II, MD 12/10/20802 Signed By: 12/10/20804NoSelect Medical Specialty Hospital [facility], IncBasic Metabolic Panelon 27-21-6421Wgjbqai [Mass/Vol]9.6 mg/dLNormal8.2-10.2FUniversity Hospitals Cleveland Medical CenterComment on above:Performed By: #### BMP, HS TROP, CBC, PT, PTT, BNP #### [place] [address] USAChloride [Moles/Vol]101 mmol/SJtytsj68-473GywhydqopThe Metrohealth SystemComment on above:Performed By: #### BMP, HS TROP, CBC, PT, PTT, BNP #### [place] [address] USACO2 [Moles/Vol]23.3 mmol/RZulntj85.0-30.0The Metrohealth SystemComment on above:Performed By: #### BMP, HS TROP, CBC, PT, PTT, BNP #### [place] [address] USACreatinine [Mass/Vol]0.97 mg/dLNormal0.64-1.27The Metrohealth SystemComment on above:Performed By: #### BMP, HS TROP, CBC, PT, PTT, BNP #### [place] [address] USACreatinine Clr Calc Sdjegnos14.33NoSelect Medical Specialty Hospital - [facility], IncComment on above:Result Comment: PERFORMED BY: [place] [address] PATHOLOGIST SHREDDED F[employer] FE[employer]ER SHYANN OLIVIER M.D.Performed By: #### BMP, HS TROP, CBC, PT, PTT, BNP #### [place] [address] USAEstimated GFR ( Nata> 60NoSelect Medical Specialty Hospital - [facility], IncComment on above:Result Comment: GFR estimated reference range: According to KDOQI guidelines, <60 ml/min/1.73m2 is sufficient to diagnose a patient with chronic kidney disease.Performed By: #### BMP, HS TROP, CBC, PT, PTT, BNP #### [place] [address] USAEstimated GFR (Non- Am> 60NoSelect Medical Specialty Hospital - [facility], IncComment on above:Performed By: #### BMP, HS TROP, CBC, PT, PTT, BNP #### [facility] [address] [place] [address] USAGlucose [Mass/Vol]128 mg/dVEpbr55-869LelhtecviThe Metrohealth SystemComment on above:Result Comment: Random Glucose Reference Range is dependent on time and content of last meal. Glucose of more than 200 mg/dL in a nonstressed, ambulatory subject supports the diagnosis of Diabetes Mellitus. ADA recommended reference rangePerformed By: #### BMP, HS TROP, CBC, PT, PTT, BNP #### [facility] [address] [place] [address] USAPotassium [Moles/Vol]4.2 mmol/LNormal3.5-5.1FUniversity Hospitals Cleveland Medical CenterComment on above:Performed By: #### BMP, HS TROP, CBC, PT, PTT, BNP #### [place] [address] USASodium [Moles/Vol]139 mmol/URkhucn153-743NkqzdjxexThe Metrohealth SystemComment on above:Performed By: #### BMP, HS TROP, CBC, PT, PTT, BNP #### [place] [address] USAUrea nitrogen [Mass/Vol]15 mg/dLNormal9-23The Metrohealth SystemComment on above:Performed By: #### BMP, HS TROP, CBC, PT, PTT, BNP #### [place] [address] USAComplete Blood Count Auto Diffon 93-54-4767Kqglpzfpv (Bld) [#/Vol]0.1 10*3/uLNormal0.0-0.2FUniversity Hospitals Cleveland Medical CenterComment on above:Result Comment: PERFORMED BY: [place] [address] PATHOLOGIST [employer] F[employer]ER SHYANN OLIVIER M.D.Performed By: #### BMP, HS TROP, CBC, PT, PTT, BNP #### [place] [address] USABasophils/100 WBC (Bld)1.0 %Normal.The Metrohealth SystemComment on above:Performed By: #### BMP, HS TROP, CBC, PT, PTT, BNP #### [place] [address] USAEosinophils (Bld) [#/Vol]0.2 10*3/uLNormal0.0-0.45 The Metrohealth SystemComment on above:Performed By: #### BMP, HS TROP, CBC, PT, PTT, BNP #### [place] [address] USAEosinophils/100 WBC (Bld)2.8 %Normal.The Metrohealth SystemComment on above:Performed By: #### BMP, HS TROP, CBC, PT, PTT, BNP #### [place] [address] USAErythrocyte distribution width (RBC) [Ratio]15.0 %High 12.0-14.8The Metrohealth SystemComment on above:Performed By: #### BMP, HS TROP, CBC, PT, PTT, BNP #### [place] [address] USAHematocrit (Bld) [Volume fraction]41.9 %Njaobz57.8-50.0 The Metrohealth SystemComment on above:Performed By: #### BMP, HS TROP, CBC, PT, PTT, BNP #### [place] [address] USAHemoglobin (Bld) [Mass/Vol]14.2 g/oKLlwtdw12.0-17.0 The Metrohealth SystemComment on above:Performed By: #### BMP, HS TROP, CBC, PT, PTT, BNP #### [place] [address] USALymphocytes (Bld) [#/Vol]1.1 10*3/uLNormal1.00-4.8 The Metrohealth SystemComment on above:Performed By: #### BMP, HS TROP, CBC, PT, PTT, BNP #### [place] [address] USALymphocytes/100 WBC (Bld)13.9 %Normal.The Metrohealth SystemComment on above:Performed By: #### BMP, HS TROP, CBC, PT, PTT, BNP #### [facility] [address]H (RBC) [Entitic mass]31.4 lkKszdul67.5-35.2FUniversity Hospitals Cleveland Medical CenterComment on above:Performed By: #### BMP, HS TROP, CBC, PT, PTT, BNP #### [facility] [address]V (RBC) [Entitic vol]92.5 fZLxeakg45.5-101The Metrohealth SystemComment on above:Performed By: #### BMP, HS TROP, CBC, PT, PTT, BNP #### [place] [address] USAMean Corpuscular HGB Conc33.9 g/lZGbccnd05.5-35.6FUniversity Hospitals Cleveland Medical CenterComment on above:Performed By: #### BMP, HS TROP, CBC, PT, PTT, BNP #### [place] [address] USAMonocytes (Bld) [#/Vol]0.6 10*3/uLNormal0.0-0.8The Metrohealth SystemComment on above:Performed By: #### BMP, HS TROP, CBC, PT, PTT, BNP #### [place] [address] USAMonocytes/100 WBC (Bld)8.3 %Normal.The Metrohealth SystemComment on above:Performed By: #### BMP, HS TROP, CBC, PT, PTT, BNP #### [place] [address] USANeutrophils (Bld) [#/Vol]5.8 10*3/uLNormal1.8-7.7FUniversity Hospitals Cleveland Medical CenterComment on above:Performed By: #### BMP, HS TROP, CBC, PT, PTT, BNP #### [facility] [address] [place] [address] USANeutrophils/100 WBC (Bld)74.0 %Normal.The Metrohealth SystemComment on above:Performed By: #### BMP, HS TROP, CBC, PT, PTT, BNP #### [facility] [address] [place] [address] USANucleated RBC/100 WBC (Bld) [Ratio]0.0 %Normal0-0.5 The [facility] SystemComapex medical center on above:Performed By: #### BMP, HS TROP, CBC, PT, PTT, BNP #### [facility] [address] [place] [address] USAPlatelet mean volume (Bld) [Entitic vol]8.0 fLNormal 6.6-10.1FUniversity Hospitals Cleveland Medical CenterComapex medical center on above:Performed By: #### BMP, HS TROP, CBC, PT, PTT, BNP #### [facility] [address] [place] [address] USAPlatelets (Bld) [#/Vol]409 10*3/aGMpkyfx365-061JjnbioxlbThe Metrohealth SystemComapex medical center on above:Performed By: #### BMP, HS TROP, CBC, PT, PTT, BNP #### [place] [address] USARBC (Bld) [#/Vol]4.53 10*6/uLNormal3.90-5.60The [facility] SystemComapex medical center on above:Performed By: #### BMP, HS TROP, CBC, PT, PTT, BNP #### [place] [address] USAWBC (Bld) [#/Vol]7.8 10*3/uLNormal4.5-11.0The [facility] SystemComapex medical center on above:Performed By: #### BMP, HS TROP, CBC, PT, PTT, BNP #### [place] [address] USACreatine Kinaseon 95-18-4529FR [Catalytic activity/Vol]128 U/CZhnfhz27-273BwfajkjttThe Metrohealth SystemComment on above:Order Comment: get all labs @0315 per rnPerformed By: #### BMP, HS TROP, CBC, PT, PTT, BNP #### [facility] [address] [place] [id number] USACreatinine Kinase MBon 64-93-8799RD.MB [Mass/Vol]15.6 ng/mLHigh0.6-6.3FUniversity Hospitals Cleveland Medical CenterComment on above:Order Comment: get all labs @0315 per rnPerformed By: #### BMP, HS TROP, CBC, PT, PTT, BNP #### [facility] [address] [place] [address] USACKMB Relative Index12.1 %High0.00-2.50The Metrohealth SystemComment on above:Order Comment: get all labs @0315 per rnPerformed By: #### BMP, HS TROP, CBC, PT, PTT, BNP #### [facility] [address] [place] [id number] USAECG 12 lead ECGon 41-90-3436TRJ 12 lead ECGPROVIDENCE HOS[facility]ITAL [facility] [place] [address] [place] [address] Electrocardiograph Report Signed Patient: Vishal Duke MR#: [id number] : 1960 Acct:[id number] Age/Sex: 59 / M ADM Date: 12/08/20 Loc: Room: [address] [place] [address] Type: ADM IN Attending Dr: Leonardo Storey [...] Giovana Fu DO 12/09/20815 Signed By: 12/09/20 1315NormalThe Metrohealth SystemMagnesiumon 86-80-8382Fezctjibv [Mass/Vol]2.0 mg/dLNormal1.6-2.6FUniversity Hospitals Cleveland Medical CenterComment on above:Order Comment: Comment Add on to amResult Comment: PERFORMED BY: [place] [address] PATHOLOGIST [employer] F[employer] SHYANN OLIVIER M.D.Performed By: #### BMP, HS TROP, CBC, PT, PTT, BNP #### [address] [address] USAPartial Thromboplastin Timeon 42-52-7252hPIF Coag (Bld) [Time]37.7 sHigh25.1-36.5FUniversity Hospitals Cleveland Medical CenterComment on above: Result Comment: PERFORMED BY: [address] [address] PATHOLOGIST [employer]DED F[employer] SHYANN OLIVIER M.D.Performed By: #### BMP, HS TROP, CBC, PT, PTT, BNP #### [address] [address] USAProthrombin Time INRon 53-94-0301QFP Coag (PPP) [Relative time]1.2 {INR}[facility] County Health CenterComment on above:Result Comment: INR Therapeutic Range A) Pre- and [...] patients with mechanical heart valves: 3 - 4.5Performed By: #### BMP, HS TROP, CBC, PT, PTT, BNP #### [address] [place] [address] USAPT Coag (PPP) [Time]13.8 sHigh9.0-12.9The Metro[facility] SystemComment on above:Performed By: #### BMP, HS TROP, CBC, PT, PTT, BNP #### [place] [address] USATroponin I High Sensitivityon 02-12-9196Fyxwxotf I High Polcwizjjlo7221 pg/mLOff scale high0-20The Metro[facility] SystemComment on above:Order Comment: * RN to call lab when pt returns hkoResult Comment: PERFORMED BY: [place] [address] PATHOLOGIST SHREDDED F[employer]ER [employer] FE[employer]ER SHYANN OLIVIER M.D.Performed By: #### BMP, HS TROP, CBC, PT, PTT, BNP #### [place] [address] USATroponin I High Nqomrlxgkwe3538 pg/mLOff scale high0-20 The Metro[facility] SystemComment on above:Order Comment: Comment during code blueResult Comment: PERFORMED BY: [place] [address] PATHOLOGIST SHREDDED FILLER [employer] FEEDER SHYANN OLIVIER M.D.Performed By: #### BMP, HS TROP, CBC, PT, PTT, BNP #### [place] [id number] USATroponin I High Dfjxlglrnii8035 pg/mLOff scale [facility]0-[address] [place], [place] [address]Comment on above:Order Comment: get all labs @0315 per rnResult Comment: PERFORMED BY: [place] [address] PATHOLOGIST SHREDDED F[employer]ER [employer] FE[employer]ER SHYANN OLIVIER M.D.Performed By: #### BMP, HS TROP, CBC, PT, PTT, BNP #### [place] [id number] USAB-Type Natriuretic Peptideon 23-19-7828Wkwrqqaqiea peptide B (Bld) [Mass/Vol]199.0 pg/mLHigh5-100The Metro[facility] SystemComment on above:Result Comment: PERFORMED BY: [place] [address] PATHOLOGIST SHREDDED F[employer]ER SHYANN OLIVIER M.D.Performed By: #### BMP, HS TROP, CBC, PT, PTT, BNP #### [place] [address] USABasic Metabolic Panelon 42-00-8455Ftndxqy [Mass/Vol]10.1 mg/dLNormal8.2-10.2FUniversity Hospitals Cleveland Medical CenterComment on above:Performed By: #### BMP, HS TROP, CBC, PT, PTT, BNP #### [place] [address] USAChloride [Moles/Vol]101 mmol/QCkdxvp02-459BjjtcuqtkThe Metrohealth SystemComment on above:Performed By: #### BMP, HS TROP, CBC, PT, PTT, BNP #### [place] [address] USACO2 [Moles/Vol]23.2 mmol/XJjmuvx02.0-30.0The Metro[facility] SystemComment on above:Performed By: #### BMP, HS TROP, CBC, PT, PTT, BNP #### [place] [address] USACreatinine [Mass/Vol]1.15 mg/dLNormal0.64-1.27The Metro[facility] SystemComment on above:Performed By: #### BMP, HS TROP, CBC, PT, PTT, BNP #### [place] [address] USACreatinine Clr Calc Fwxqpkmv64.22NormalThe Metrohealth SystemComment on above:Result Comment: PERFORMED BY: [place] [address] PATHOLOGIST SHREDDED FILLER H[employer]PER FEEDER SHYANN OLIVIER M.D.Performed By: #### BMP, HS TROP, CBC, PT, PTT, BNP #### [place] [address] USAEstimated GFR ( Nata> 60NormUniversity Hospitals Elyria Medical CenterComment on above:Result Comment: GFR estimated reference range: According to KDOQI guidelines, <60 ml/min/1.73m2 is sufficient to diagnose a patient with chronic kidney disease.Performed By: #### BMP, HS TROP, CBC, PT, PTT, BNP #### [facility] [address] [place] [id number] USAEstimated GFR (Non- Am> 60NormUniversity Hospitals Elyria Medical CenterComment on above:Performed By: #### BMP, HS TROP, CBC, PT, PTT, BNP #### [facility] [address] [place] [id number] USAGlucose [Mass/Vol]153 mg/bIGvew43-364DjkqafbvcThe Metrohealth SystemComment on above:Result Comment: Random Glucose Reference Range is dependent on time and content of last meal. Glucose of more than 200 mg/dL in a nonstressed, ambulatory subject supports the diagnosis of Diabetes Mellitus. ADA recommended reference rangePerformed By: #### BMP, HS TROP, CBC, PT, PTT, BNP #### [facility] [address] [place] [id number] USAPotassium [Moles/Vol]4.5 mmol/LNormal3.5-5.1FUniversity Hospitals Cleveland Medical CenterComment on above:Performed By: #### BMP, HS TROP, CBC, PT, PTT, BNP #### [facility] [address] [place] [id number] USASodium [Moles/Vol]139 mmol/PFkoazd816-063LbqwoutcbThe Metrohealth SystemComment on above:Performed By: #### BMP, HS TROP, CBC, PT, PTT, BNP #### [facility] [address] [place] [id number] USAUrea nitrogen [Mass/Vol]15 mg/dLNormal9-23The Metrohealth SystemComment on above:Performed By: #### BMP, HS TROP, CBC, PT, PTT, BNP #### [facility] [address] [place] [id number] USACOVID-19 Antigenon 59-06-5509OTMIS-19 AntigenHealthcare Worker?: N Tessa Reference Tessa Reference Negative [...] its performance Tessa Disclaimer characteristic determined by [employer] and Tessa Disclaimer validated at [facility]. This Tessa Disclaimer test has not [...] is terminated or revoked sooner. PERFORMED BY: [place] [address] PATHOLOGIST SHREDDED F[employer]ER [employer] FE[employer]ER SHYANN OLIVIER M.D.[facility] County Health CenterComment on above: Performed By: #### SOFIANEG, COVID-19 [place], COVID 19 [facility] #### [place] [address] USACOVID-19 [facility] TAHLEQUAHon 90-28-0125KNFJ-CoV-2 (COVID-19) RNA ADELINE+probe Ql (Unsp spec)NegativeNormalNegativeThe [facility] System Comment on above:Order Comment: Healthcare Worker?: NResult Comment: Testing for SARS-CoV-2 by RT-PCR This test was developed and its performance characteristics determined by Jessica, [employer] ([place]) and validated at the [facility]. This test has not been FDA [...] is terminated or revoked sooner. PERFORMED BY: [place] [address] PATHOLOGIST SHREDDED FILLER HOPPER FEEDER SHYANN OLIVIER M.D.Performed By: #### BMP, HS TROP, CBC, PT, PTT, BNP #### [place] [id number] USACT abdomen pelvis wo conon 99-80-8316SP abdomen pelvis wo [facility] [place] [address] [place] [address] CT Scan Report Signed Patient: Vishal Duke MR#: [id number] : 1960 Acct:[id number] Age/Sex: 59 / M ADM Date: 12/08/20 Loc: ER Room: Type: [facility] ER Attending Dr: Ordering Provider: Irwin [...] Biju Ag M.D.12/08/2020 11:16 AM Dictation Location: [place] [address] Transcribed By: [facility] 12/08/20 1116 Dictated By: Biju Ag MD 12/08/20 1102 Signed By: 12/08/20 1116NormalThe Metrohealth SystemComplete Blood Count Auto Diffon 59-96-8458Zlcdobdox (Bld) [#/Vol]0.1 10*3/uLNormal0.0-0.2FUniversity Hospitals Cleveland Medical CenterComment on above:Result Comment: PERFORMED BY: [facility] [address] [place] [address] PATHOLOGIST SHREDDED FILLER HOPPER FEEDER SHYANN OLIVIER M.D.Performed By: #### BMP, HS TROP, CBC, PT, PTT, BNP #### [facility] [address] [place] [address] USABasophils/100 WBC (Bld)0.6 %Normal.The Metrohealth SystemComment on above:Performed By: #### BMP, HS TROP, CBC, PT, PTT, BNP #### [place] [address] USAEosinophils (Bld) [#/Vol]0.2 10*3/uLNormal0.0-0.45 The Metrohealth SystemComment on above:Performed By: #### BMP, HS TROP, CBC, PT, PTT, BNP #### [place] [address] USAEosinophils/100 WBC (Bld)2.5 %Normal.The Metrohealth SystemComment on above:Performed By: #### BMP, HS TROP, CBC, PT, PTT, BNP #### [place] [address] USAErythrocyte distribution width (RBC) [Ratio]15.2 %High 12.0-14.8The Metrohealth SystemComment on above:Performed By: #### BMP, HS TROP, CBC, PT, PTT, BNP #### [place] [address] USAHematocrit (Bld) [Volume fraction]41.7 %Qhvhka78.8-50.0 The Metrohealth SystemComment on above:Performed By: #### BMP, HS TROP, CBC, PT, PTT, BNP #### [place] [address] USAHemoglobin (Bld) [Mass/Vol]14.0 g/hUZfrzug66.0-17.0 The Metrohealth SystemComment on above:Performed By: #### BMP, HS TROP, CBC, PT, PTT, BNP #### [place] [address] USALymphocytes (Bld) [#/Vol]0.9 10*3/uLLow1.00-4.8The Metrohealth SystemComment on above:Performed By: #### BMP, HS TROP, CBC, PT, PTT, BNP #### [facility] [address] [place] [address] USALymphocytes/100 WBC (Bld)10.9 %Normal.The Metrohealth SystemComment on above:Performed By: #### BMP, HS TROP, CBC, PT, PTT, BNP #### [address] (RBC) [Entitic mass]31.5 vaPmbfro08.5-35.2FUniversity Hospitals Cleveland Medical CenterComment on above:Performed By: #### BMP, HS TROP, CBC, PT, PTT, BNP #### [address] (RBC) [Entitic vol]93.7 oBVcoihg38.5-101The Metrohealth SystemComment on above:Performed By: #### BMP, HS TROP, CBC, PT, PTT, BNP #### [place] [address] USAMean Corpuscular HGB Conc33.6 g/kIUxtcpi40.5-35.6FUniversity Hospitals Cleveland Medical CenterComment on above:Performed By: #### BMP, HS TROP, CBC, PT, PTT, BNP #### [place] [address] USAMonocytes (Bld) [#/Vol]0.6 10*3/uLNormal0.0-0.8The Metro[facility] SystemComapex medical center on above:Performed By: #### BMP, HS TROP, CBC, PT, PTT, BNP #### [place] [address] USAMonocytes/100 WBC (Bld)7.4 %Normal.The Metrohealth SystemComment on above:Performed By: #### BMP, HS TROP, CBC, PT, PTT, BNP #### [place] [address] USANeutrophils (Bld) [#/Vol]6.7 10*3/uLNormal1.8-7.7FUniversity Hospitals Cleveland Medical CenterComment on above:Performed By: #### BMP, HS TROP, CBC, PT, PTT, BNP #### [facility] [address] [place] [address] USANeutrophils/100 WBC (Bld)78.6 %Normal.The Metrohealth SystemComment on above:Performed By: #### BMP, HS TROP, CBC, PT, PTT, BNP #### [facility] [address] [place] [address] USANucleated RBC/100 WBC (Bld) [Ratio]0.1 %Normal0-0.5 The Metrohealth SystemComment on above:Performed By: #### BMP, HS TROP, CBC, PT, PTT, BNP #### [place] [address] USAPlatelet mean volume (Bld) [Entitic vol]8.2 fLNormal 6.6-10.1FUniversity Hospitals Cleveland Medical CenterComment on above:Performed By: #### BMP, HS TROP, CBC, PT, PTT, BNP #### [facility] [address] [place] [address] USAPlatelets (Bld) [#/Vol]414 10*3/zFWjuarr745-666QohxapffuThe Metrohealth SystemComment on above:Performed By: #### BMP, HS TROP, CBC, PT, PTT, BNP #### [facility] [address] [place] [address] USARBC (Bld) [#/Vol]4.44 10*6/uLNormal3.90-5.60The Metrohealth SystemComment on above:Performed By: #### BMP, HS TROP, CBC, PT, PTT, BNP #### [facility] [address] [place] [address] USAWBC (Bld) [#/Vol]8.5 10*3/uLNormal4.5-11.0The Metrohealth SystemComment on above:Performed By: #### BMP, HS TROP, CBC, PT, PTT, BNP #### [place] [address] USABasophils (Bld) [#/Vol]0.1 10*3/uLNormal0.0-0.2FUniversity Hospitals Cleveland Medical CenterComment on above:Result Comment: PERFORMED BY: [place] [address] PATHOLOGIST SHREDDED FILLER HOPPER FEEDER SHYANN OLIVIER M.D.Performed By: #### BMP, HS TROP, CBC, PT, PTT, BNP #### [place] [address] USABasophils/100 WBC (Bld)0.7 %Normal.The Metrohealth SystemComment on above:Performed By: #### BMP, HS TROP, CBC, PT, PTT, BNP #### [place] [address] USAEosinophils (Bld) [#/Vol]0.2 10*3/uLNormal0.0-0.45 The Metrohealth SystemComment on above:Performed By: #### BMP, HS TROP, CBC, PT, PTT, BNP #### [place] [address] USAEosinophils/100 WBC (Bld)1.8 %Normal.The Metrohealth SystemComment on above:Performed By: #### BMP, HS TROP, CBC, PT, PTT, BNP #### [place] [address] USAErythrocyte distribution width (RBC) [Ratio]15.5 %High 12.0-14.8The Metrohealth SystemComapex medical center on above:Performed By: #### BMP, HS TROP, CBC, PT, PTT, BNP #### [place] [address] USAHematocrit (Bld) [Volume fraction]42.0 %Yknirp31.8-50.0 The Metrohealth SystemComment on above:Performed By: #### BMP, HS TROP, CBC, PT, PTT, BNP #### [place] [address] USAHemoglobin (Bld) [Mass/Vol]14.2 g/kHSsccrm25.0-17.0 The Metrohealth SystemComment on above:Performed By: #### BMP, HS TROP, CBC, PT, PTT, BNP #### [place] [address] USALymphocytes (Bld) [#/Vol]0.8 10*3/uLLow1.00-4.8The Metrohealth SystemComment on above:Performed By: #### BMP, HS TROP, CBC, PT, PTT, BNP #### [place] [address] USALymphocytes/100 WBC (Bld)7.7 %Normal.The Metrohealth SystemComment on above:Performed By: #### BMP, HS TROP, CBC, PT, PTT, BNP #### [address]H (RBC) [Entitic mass]31.3 sxNlxskf91.5-35.2FUniversity Hospitals Cleveland Medical CenterComment on above:Performed By: #### BMP, HS TROP, CBC, PT, PTT, BNP #### [address]V (RBC) [Entitic vol]92.4 eOBudhkw77.5-101The Metrohealth SystemComment on above:Performed By: #### BMP, HS TROP, CBC, PT, PTT, BNP #### [place] [address] USAMean Corpuscular HGB Conc33.9 g/rFLuwgpu45.5-35.6FUniversity Hospitals Cleveland Medical CenterComment on above:Performed By: #### BMP, HS TROP, CBC, PT, PTT, BNP #### [place] [address] USAMonocytes (Bld) [#/Vol]0.8 10*3/uLNormal0.0-0.8The Metrohealth SystemComment on above:Performed By: #### BMP, HS TROP, CBC, PT, PTT, BNP #### [facility] [address] [place] [address] USAMonocytes/100 WBC (Bld)7.5 %Normal.The Metrohealth SystemComment on above:Performed By: #### BMP, HS TROP, CBC, PT, PTT, BNP #### [facility] [address] [place] [address] USANeutrophils (Bld) [#/Vol]9.0 10*3/uLHigh1.8-7.7FUniversity Hospitals Cleveland Medical CenterComment on above:Performed By: #### BMP, HS TROP, CBC, PT, PTT, BNP #### [facility] [address] [place] [address] USANeutrophils/100 WBC (Bld)82.3 %Normal.The Metrohealth SystemComment on above:Performed By: #### BMP, HS TROP, CBC, PT, PTT, BNP #### [facility] [address] [place] [address] USANucleated RBC/100 WBC (Bld) [Ratio]0.1 %Normal0-0.5 The Metro[facility] SystemComapex medical center on above:Performed By: #### BMP, HS TROP, CBC, PT, PTT, BNP #### [facility] [address] [place] [address] USAPlatelet mean volume (Bld) [Entitic vol]7.9 fLNormal 6.6-10.1FUniversity Hospitals Cleveland Medical CenterComment on above:Performed By: #### BMP, HS TROP, CBC, PT, PTT, BNP #### [facility] [address] [place] [address] USAPlatelets (Bld) [#/Vol]463 10*3/wESznl681-262MdaowjuzcThe Metrohealth SystemComment on above:Performed By: #### BMP, HS TROP, CBC, PT, PTT, BNP #### [place] [address] USARBC (Bld) [#/Vol]4.54 10*6/uLNormal3.90-5.60The Metrohealth SystemComment on above:Performed By: #### BMP, HS TROP, CBC, PT, PTT, BNP #### [facility] [address] [place] [address] USAWBC (Bld) [#/Vol]11.0 10*3/uLNormal4.5-11.0The Metrohealth SystemComment on above:Performed By: #### BMP, HS TROP, CBC, PT, PTT, BNP #### [facility] [address] [place] [address] USACreatine Kinaseon 62-69-3281TN [Catalytic activity/Vol]78 U/YZlkkun63-088RkzpisltsThe Metrohealth SystemComment on above:Performed By: #### BMP, HS TROP, CBC, PT, PTT, BNP #### [place] [address] USACK [Catalytic activity/Vol]67 U/GJggnxv38-305Mciqrlitf[address] [place], [place] [address]Comment on above:Performed By: #### BMP, HS TROP, CBC, PT, PTT, BNP #### [place] [address] USACK [Catalytic activity/Vol]58 U/CGjubpc47-928Qbfeajahy[address] [place], [place] [address]Comment on above:Performed By: #### BMP, HS TROP, CBC, PT, PTT, BNP #### [place] [address] USACreatinine Kinase MBon 84-82-5271WE.MB [Mass/Vol]6.3 ng/mL Normal0.6-6.3FUniversity Hospitals Cleveland Medical CenterComment on above:Performed By: #### BMP, HS TROP, CBC, PT, PTT, BNP #### [facility] [address] [place] [address] USACKMB Relative Index8.0 %High0.00-2.50The Metrohealth SystemComment on above:Performed By: #### BMP, HS TROP, CBC, PT, PTT, BNP #### [facility] [address] [place] [address] USACK.MB [Mass/Vol]4.2 ng/mLNormal0.6-6.3FUniversity Hospitals Cleveland Medical CenterComment on above:Performed By: #### BMP, HS TROP, CBC, PT, PTT, BNP #### [facility] [address] [place] [address] USACKMB Relative Index6.2 %High0.00-2.50The Metrohealth SystemComment on above:Performed By: #### BMP, HS TROP, CBC, PT, PTT, BNP #### [facility] [address] [place] [address] USACK.MB [Mass/Vol]3.7 ng/mLNormal0.6-6.3FUniversity Hospitals Cleveland Medical CenterComment on above:Performed By: #### BMP, HS TROP, CBC, PT, PTT, BNP #### [facility] [address] [place] [address] USACKMB Relative Index6.3 %High0.00-2.[address] [place], [place] [address]Comment on above:Performed By: #### BMP, HS TROP, CBC, PT, PTT, BNP #### [facility] [address] [place] [address] USAECG 12 lead ECGon 41-47-3742XIB 12 [facility]PR[facility] [place] [address] [place] [address] Electrocardiograph Report Signed Patient: Vishal Duke MR#: [id number] : 1960 Acct:[id number] Age/Sex: 59 / M ADM Date: 12/08/20 Loc: Room: [address] [place] [address] Type: ADM INOo Attending Dr: Daniel Prabhakar [...] Lateral leads Confirmed by IRWIN LUTZ DO ([id number]) on 12/09/2020 6:02:40 AM Referred By: Electronically Signed By:IRWIN LUTZ DO Transcribed By: MUS Dictated By: Iwrin Ltuz DO 12/08/20 0950 Signed By: 12/09/20 0602NormalThe Metrohealth SystemPartial Thromboplastin Timeon 32-47-7791kHKX Coag (Bld) [Time]131.9 sOff scale high 25.1-36.5FUniversity Hospitals Cleveland Medical CenterComment on above:Result Comment: Results called at 1947 on 12/08/20 PERFORMED BY: [place] [id number] PATHOLOGIST SHREDDED FILLER HOPPER FEEDER SHYANN OLIVIER M.D.Performed By: #### BMP, HS TROP, CBC, PT, PTT, BNP #### [facility] [address] [place] [address] USAaPTT Coag (Bld) [Time]36.2 yEfjkta37.1-36.5FUniversity Hospitals Cleveland Medical CenterComment on above:Result Comment: PERFORMED BY: [address] [address] PATHOLOGIST SHREDDED FILLER HOPPER FEEDER SHYANN OLIVIER M.D.Performed By: #### BMP, HS TROP, CBC, PT, PTT, BNP #### [facility] [address] [place], [place] [address] USAProthrombin Time INRon 12-75-8423RWO Coag (PPP) [Relative time]1.5 {INR}[facility] County Health CenterComment on above:Result Comment: INR Therapeutic Range A) Pre- and [...] patients with mechanical heart valves: 3 - 4.5Performed By: #### BMP, HS TROP, CBC, PT, PTT, BNP #### [facility] [address] [place] [address] USAPT Coag (PPP) [Time]16.1 [facility] Hospitalh9.0-12.9The Metrohealth SystemComment on above:Performed By: #### BMP, HS TROP, CBC, PT, PTT, BNP #### [place] [address] USAINR Coag (PPP) [Relative time]1.3 {INR}NormalThe Metrohealth SystemComment on above:Result Comment: INR Therapeutic Range A) Pre- and [...] patients with mechanical heart valves: 3 - 4.5Performed By: #### BMP, HS TROP, CBC, PT, PTT, BNP #### [address] [address] USAPT Coag (PPP) [Time]14.0 [facility] Hospitalh9.0-12.9The Metrohealth SystemComment on above:Performed By: #### BMP, HS TROP, CBC, PT, PTT, BNP #### [place] [id number] USASofia Ag Negativeon 51-43-7696Ywzss Ag NegativeNegative NormalNegativeThe Metrohealth SystemComment on above:Result Comment: This is a duplicate Tessa SARS Antigen (GISSEL) result to be used for statistical tracking purpose only. PERFORMED BY: [place] [address] PATHOLOGIST SHREDDED FILLER HOPPER FEEDER SHYANN OLIVIER M.D.Performed By: #### [place]ANG, COVID-19 [place], COVID 19 [facility] #### [place] [id number] USATroponin I High Sensitivityon 97-97-2663Krfzwsar I High Nhplmnwpjpx435 pg/mLOff scale high0-20The Metrohealth SystemComment on above:Result Comment: PERFORMED BY: [address] [address] PATHOLOGIST SHREDDED FILLER HOPPER FEEDER SHYANN OLIVIER M.D.Performed By: #### BMP, HS TROP, CBC, PT, PTT, BNP #### [address] [address] USATroponin I High Xkolngzaurq655 pg/mLOff scale high0-20 The Metrohealth SystemComment on above:Result Comment: PERFORMED BY: [place] [address] PATHOLOGIST SHREDDED FILLER HOPPER FEEDER SHYANN OLIVIER M.D.Performed By: #### BMP, HS TROP, CBC, PT, PTT, BNP #### [address] [address] USATroponin I High Owtcqyjddxr325 pg/mLOff scale high0-20 The Metrohealth SystemComment on above:Result Comment: Critical value result called at 1719 on 12/08/20 PERFORMED BY: [address] [address] PATHOLOGIST SHREDDED FILLER HOPPER FEEDER SHYANN OLIVIER M.D.Performed By: #### BMP, HS TROP, CBC, PT, PTT, BNP #### [address] [address] USATroponin I High Dcshfjmezxr84 pg/mLWeirton Medical Center0-20The Metrohealth SystemComment on above:Result Comment: PERFORMED BY: [address] [address] PATHOLOGIST SHREDDED FILLER HOPPER FEEDER SHYANN OLIVIER M.D.Performed By: #### BMP, HS TROP, CBC, PT, PTT, BNP #### [facility] [address] [place] [address] USAXR chest 1V portableon 75-18-6049WY chest 1V portable [facility] Main [address] [address] XRay Report Signed Patient: Vishal Duke MR#: [id number] : 1960 Acct:[id number] Age/Sex: 59 / M ADM Date: 12/08/20 Loc: ER Room: Type: [facility] ER Attending Dr: Ordering Provider: Irwin [...] Biju Ag M.D.12/08/2020 11:02 AM Dictation Location: [place] [address] Transcribed By: [facility] 12/08/20 1102 Dictated By: Biju Ag MD 12/08/20 1059 Signed By: 12/08/20 1102NoSelect Medical Specialty Hospital [facility], IncTACROLIMUSon 12-04-2020 Tacrolimus (Bld) [Mass/Vol]8.0 ng/mLNormal5.0-20.0The [facility] Hospital - WestComment on above:Order Comment: Yes: Add to Previous draw if able Result Comment: The SANDHU PORTFOLIO LEAD Tacrolimus assay is a delayed one-step immunoassay for the quantitative determination of tacrolimus in human whole blood using the chemiluminescent microparticle immunoassay (CMIA) technology with flexible assay protocols, referred to as Chemiflex.Performed By: #### 45309, 55634, 92875, 51678, 47351 #### [facility] [address] [place] [address], USATROPONIN-Ion 75-32-6259Qwsbksbq I.cardiac [Mass/Vol]0.03 ng/mLNormal0.00-0.04The [facility] Hospital - WestComment on above: Order Comment: No: Do not add to previous draw Pt in bath room askme to come backResult Comment: REFERENCE RANGES: 0.00 - 0.04 ng/ml NORMAL 0.05 - 0.50 ng/ml INDETERMINATE > 0.50 ng/ml CONSISTENT WITH AN M.I.Performed By: #### 63[address] #### [facility] [address] [facility] [place] [address], USAOrder Comment: No: Do not add to previous drawPerformed By: #### 91745, 47493, 07889, 02383, 51248 #### [facility] [address] [facility] [place] [address], USATroponin I.cardiac [Mass/Vol]0.03 ng/mLNormal0.00-0.04The [facility] - WestComment on above:Result Comment: REFERENCE RANGES: 0.00 - 0.04 ng/ml NORMAL 0.05 - 0.50 ng/ml INDETERMINATE > 0.50 ng/ml CONSISTENT WITH AN M.I.Performed By: #### 41488, 05334, 26940, 25788, 99744 #### [facility] [address] [facility] [place] [address], USAktx basic metabolic panelon 16-45-6862Yhnqcco [Mass/Vol]8.9 mg/dLNormal8.6-10.3The [facility] - WestComment on above: Performed By: #### 69874, 63320, 87717, 73272, 79759 #### [facility] [address] [facility] [place] [address], USAChloride [Moles/Vol]106 mmol/GDgqndh27-087Ide [facility] - WestComment on above:Performed By: #### 24712, 48869, 53668, 89368, 42020 #### [facility] [address] [place] [address], USACO2 [Moles/Vol]19 mmol/FDxx80-29Ubj [facility] - WestComment on above:Performed By: #### 21388, 81097, 05683, 86462, 80416 #### [facility] [address] [place] [address], USACreatinine [Mass/Vol]0.82 mg/dLNormal0.70-1.30The [facility] - WestComment on above:Performed By: #### 80790, 31863, 95567, 72357, 43156 #### [facility] [address] [place] [address], USAGFR/1.73 sq M.predicted among blacks MDRD (S/P/Bld) [Vol rate/Area]mL/min/{1.73_m2}Normal>60The [facility] Comment on above:Performed By: #### 09181, 19187, 14740, 82356, 74442 #### [facility] [address] [place] [address], USAGFR/1.73 sq M.predicted among non-blacks MDRD (S/P/Bld) [Vol rate/Area]mL/min/{1.73_m2}Normal>60The [facility] Comment on above:Performed By: #### 42274, 96940, 34638, 80639, 12501 #### [facility] [address] [place] [address], USAGlucose [Mass/Vol]127 mg/tIMbdq45-352Tsx [facility] - WestComment on above:Performed By: #### 83126, 73106, 60007, 78992, 83420 #### [facility] [address] [place] [address], USAPotassium [Moles/Vol]3.9 mmol/LNormal3.5-5.1The [facility] - WestComment on above:Performed By: #### 11114, 33721, 09830, 08785, 99939 #### [facility] [address] [place] [address], USASodium [Moles/Vol]136 mmol/ZOckhym458-904Xvr [facility] - WestComment on above:Performed By: #### 42313, 33547, 96465, 78262, 09249 #### [facility] [address] [place] [address], USAUrea nitrogen [Mass/Vol]10 mg/dLNormal7-25The [facility] - WestComment on above:Performed By: #### 85041, 34469, 21993, 74510, 80749 #### [facility] [address] [place] [address], USAktx cbc complete blood counton 00-50-5960Sdqjazvlffp distribution width (RBC) [Ratio]14.6 %Ggstxj89.5-15.0The [facility] - WestComment on above:Performed By: #### 94307 #### [facility] [address] [place] [address], USAHematocrit (Bld) [Volume fraction]38.7 %Low39.0-50.0The [facility] - WestComment on above:Performed By: #### 89201 #### [facility] [address] [place] [address], USAHemoglobin (Bld) [Mass/Vol]12.8 g/dLLow13.0-17.0The [facility] - WestComment on above:Performed By: #### 02839 #### [facility] [address] [place] [address], USAMCH (RBC) [Entitic mass]31.3 nvHisewo97.0-33.0The [facility] - WestComment on above:Performed By: #### 68569 #### [facility] [address] [place] [address], USAMCHC (RBC) [Mass/Vol]33.1 g/bZCkuwmw22.0-35.0The [facility] - WestComment on above:Performed By: #### 92100 #### [facility] [address] [place] [id number], [facility] HOSPITALMCV (RBC) [Entitic vol]94.6 uHXbdrhq49.0-98.0The [facility] - WestComment on above:Performed By: #### 10361 #### [facility] [address] [facility] [place] [address], USANucleated RBC/100 WBC (Bld) [Ratio]0 %Normal0-0The [facility] - WestComment on above:Performed By: #### 02706 #### [facility] [address] [facility]. [place] [id number], NOR-LEA GENERAL HOSPITALPLAT TPG798 10*3/nCTyduqc495-800Mtt [facility] - WestComment on above:Performed By: #### 26463 #### [facility] [address] [facility] [place] [address], NOR-LEA GENERAL HOSPITALRBC (Bld) [#/Vol]4.09 10*6/uLLow4.20-5.70The [facility] - WestComment on above:Performed By: #### 10084 #### [facility] [address] [facility] [place] [address], USAWBC (Bld) [#/Vol]12.30 10*3/uLHigh4.00-10.60The [facility] - WestComment on above:Performed By: #### 89538 #### [facility] [address] [facility] [place] [address], USAktx magnesium bloodon 55-99-9020Ggqkfhoan [Mass/Vol]1.6 mg/dLLow1.9-2.7The [facility] - WestComment on above:Performed By: #### 73941, 43176, 00458, 22970, 18537 #### [facility] [address] [place] [address], USAktx phosphoruson 01-07-3233Ygauupmka [Mass/Vol]2.4 mg/dLLow 2.5-5.0The [facility] - WestComment on above:Performed By: #### 33776, 12621, 30157, 85866, 74478 #### [facility] [address] [place] [address], USATACROLIMUSon 27-41-7299Mtitengvur (Bld) [Mass/Vol]9.1 ng/mL Normal5.0-20.0The [facility] - WestComment on above:Order Comment: Yes: Add to Previous draw if ableResult Comment: The SANDHU PORTFOLIO LEAD Tacrolimus assay is a delayed one-step immunoassay for the quantitative determination of tacrolimus in human whole blood using the chemiluminescent microparticle immunoassay (CMIA) technology with flexible assay protocols, referred to as Chemiflex.Performed By: #### 12584, 53797, 30046, 90087, 93683 #### [facility] [address] [facility] [place] [address], USAktx basic metabolic panelon [id number] [Mass/Vol]9.5 mg/dLNormal8.6-10.3The [facility] - WestComment on above: Performed By: #### 61663, 43595, 89180, 38293, 04205 #### [facility] [address] [facility] [place] [address], USAChloride [Moles/Vol]102 mmol/OOvxcig28-514Ceu [facility] - WestComment on above:Performed By: #### 09506, 92085, 23371, 96341, 01069 #### [facility] [address] [facility] [place] [address], USACO2 [Moles/Vol]22 mmol/LGtxfvc71-37Vnd [facility] - WestComment on above:Performed By: #### 02961, 66293, 82721, 08660, 08342 #### [facility] [address] [place] [address], USACreatinine [Mass/Vol]0.88 mg/dLNormal0.70-1.30The [facility] - WestComment on above:Performed By: #### 62691, 18879, 10904, 66874, 77121 #### [facility] [address] [place] [address], USAGFR/1.73 sq M.predicted among blacks MDRD (S/P/Bld) [Vol rate/Area]mL/min/{1.73_m2}Normal>60The [facility] Comment on above:Performed By: #### 60217, 59623, 25390, 59600, 97942 #### [facility] [address] [place] [address], USAGFR/1.73 sq M.predicted among non-blacks MDRD (S/P/Bld) [Vol rate/Area]mL/min/{1.73_m2}Normal>60The [facility] Comment on above:Performed By: #### 94292, 32576, 99349, 12309, 92054 #### [facility] [address] [place] [address], USAGlucose [Mass/Vol]120 mg/tTWlgp53-307Fkm [facility] WestComment on above:Performed By: #### 94891, 99708, 06682, 64238, 45335 #### [facility] [address] [place] [address], USAPotassium [Moles/Vol]3.8 mmol/LNormal3.5-5.1The [facility] - WestComment on above:Performed By: #### 68090, 54154, 95331, 37975, 89237 #### [facility] [address] [place] [address], USASodium [Moles/Vol]134 mmol/BYsr667-611Yda [facility] WestComment on above:Performed By: #### 94673, 30096, 59020, 93771, 59207 #### [facility] [address] [place] [address], USAUrea nitrogen [Mass/Vol]9 mg/dLNormal7-25The [facility] WestComment on above:Performed By: #### 23353, 82776, 61964, 94682, 18557 #### [facility] [address] [place] [address], USAktx cbc complete blood counton 06-54-6868Rfngmiwvacf distribution width (RBC) [Ratio]14.6 %Jialtp13.5-15.0The [facility] - WestComment on above:Performed By: #### 33621 #### [facility] [address] [place] [address], USAHematocrit (Bld) [Volume fraction]40.4 %Btnlhb25.0-50.0The [facility] - WestComment on above:Performed By: #### 75524 #### [facility] [address] [place] [address], USAHemoglobin (Bld) [Mass/Vol]13.6 g/vUUypsid54.0-17.0The [facility] - WestComment on above:Performed By: #### 04268 #### [facility] [address] [place] [address], USAMCH (RBC) [Entitic mass]31.1 biZpstoj47.0-33.0The [facility] - WestComment on above:Performed By: #### 43410 #### [facility] [address] [place] [address], USAMCHC (RBC) [Mass/Vol]33.7 g/gFQmkacx33.0-35.0The [facility] WestComment on above:Performed By: #### 53376 #### [facility] [address] [place] [address], USAMCV (RBC) [Entitic vol]92.4 mUHmvcez35.0-98.0The [facility] - WestComment on above:Performed By: #### 53929 #### [facility] [address] [place] [address], USANucleated RBC/100 WBC (Bld) [Ratio]0 %Normal0-0The [facility] - WestComment on above:Performed By: #### 90839 #### [facility] [address] [place] [address], USAPLAT KZY107 10*3/qEZwobeb231-245Kxr [facility] WestComment on above:Performed By: #### 18446 #### [facility] [address] [place] [address], USARBC (Bld) [#/Vol]4.37 10*6/uLNormal4.20-5.70The [facility] - WestComment on above:Performed By: #### 49208 #### [facility] [address] [place] [address], USAWBC (Bld) [#/Vol]12.42 10*3/uLHigh4.00-10.60The [facility] - WestComment on above:Performed By: #### 21236 #### [facility] [address] [place] [address], USAktx magnesium bloodon 41-60-7795Leuepaeco [Mass/Vol]2.1 mg/dLNormal1.9-2.7The [facility] - WestComment on above: Performed By: #### 40000, 77026, 02585, 61617, 41555 #### [facility] [address] [place] [address], USAktx phosphoruson 95-78-1961Xbhjtztqz [Mass/Vol]3.3 mg/dL Normal2.5-5.0The [facility] - WestComment on above:Performed By: #### 64118, 38529, 83281, 34053, 95879 #### [facility] [address] [place] [address], USABASIC METABOLIC PANELon 27-54-4073Rafjqaj [Mass/Vol]10.1 mg/dLNormal8.6-10.3The [facility] WestComment on above:Order Comment: No: Do not add to previous drawPerformed By: #### 41955, 02365, 59922, 80132, 94256 #### [facility] [address] [place] [address], USAChloride [Moles/Vol]97 mmol/GXvp36-143Uoa [facility] WestComment on above:Order Comment: No: Do not add to previous drawPerformed By: #### 88859, 44022, 24434, 93641, 16537 #### [facility] [address] [place] [address], USACO2 [Moles/Vol]27 mmol/EYvfvwl82-63Wlb [facility] WestComment on above:Order Comment: No: Do not add to previous draw Performed By: #### 83834, 15688, 62137, 89196, 94676 #### [facility] [address] [place] [address], USACreatinine [Mass/Vol]1.12 mg/dLNormal0.70-1.30The [facility] WestComment on above:Order Comment: No: Do not add to previous drawPerformed By: #### 84535, 71054, 14706, 09591, 06173 #### [facility] [address] [place] [address], USAGFR/1.73 sq M.predicted among blacks MDRD (S/P/Bld) [Vol rate/Area]mL/min/{1.73_m2}Normal>60The [facility] Comment on above:Order Comment: No: Do not add to previous drawPerformed By: #### 53283, 55725, 46135, 44956, 65296 #### [facility] [address] [place] [address], USAGFR/1.73 sq M.predicted among non-blacks MDRD (S/P/Bld) [Vol rate/Area]mL/min/{1.73_m2}Normal>60The [facility] Comment on above:Order Comment: No: Do not add to previous drawPerformed By: #### 50952, 08201, 85928, 28638, 48984 #### [facility] [address] [place] [address], USAGlucose [Mass/Vol]124 mg/uSAght76-832Ehq [facility] WestComment on above:Order Comment: No: Do not add to previous drawPerformed By: #### 47067, 40847, 38001, 12682, 57625 #### [facility] [address] [place] [address], USAPotassium [Moles/Vol]4.4 mmol/LNormal3.5-5.1The [facility] WestComment on above:Order Comment: No: Do not add to previous drawPerformed By: #### 57646, 09408, 62498, 13720, 85693 #### [facility] [address] [place] [address], USASodium [Moles/Vol]133 mmol/DUas082-966Lbb [facility] WestComment on above:Order Comment: No: Do not add to previous drawPerformed By: #### 78556, 97954, 94251, 89160, 01461 #### [facility] [address] [place] [address], USAUrea nitrogen [Mass/Vol]17 mg/dLNormal7-25The [facility] WestComment on above:Order Comment: No: Do not add to previous drawPerformed By: #### 72341, 74784, 30177, 16216, 81940 #### [facility] [address] [place] [address], [facility] HOSPITALCBC COMPLETE BLOOD COUNTon 91-14-9344Tdlcfkzgcln distribution width (RBC) [Ratio]14.7 %Nhfgup20.5-15.0The [facility] - WestComment on above:Order Comment: No: Do not add to previous draw Performed By: #### 76362 #### [facility] [address] [place] [address], USAHematocrit (Bld) [Volume fraction]43.7 %Bogmvk72.0-50.0The [facility] - WestComment on above:Order Comment: No: Do not add to previous drawPerformed By: #### 51344 #### [facility] [address] [place] [address], USAHemoglobin (Bld) [Mass/Vol]14.1 g/nLYordav92.0-17.0The [facility] WestComment on above:Order Comment: No: Do not add to previous drawPerformed By: #### 54563 #### [facility] [address] [place] [address], [facility] ADAH (RBC) [Entitic mass]30.8 ezTnummp95.0-33.0The [facility] WestComment on above:Order Comment: No: Do not add to previous drawPerformed By: #### 89074 #### [facility] [address] [place] [address], [facility] HOSPITALMCHC (RBC) [Mass/Vol]32.3 g/zZVlytnn11.0-35.0The [facility] WestComment on above:Order Comment: No: Do not add to previous drawPerformed By: #### 16748 #### [facility] [address] [place] [address], [facility] HOSPITALMCV (RBC) [Entitic vol]95.4 jKGtjibd63.0-98.0The [facility] WestComment on above:Order Comment: No: Do not add to previous drawPerformed By: #### 47477 #### [facility] [address] [place] [address], USANucleated RBC/100 WBC (Bld) [Ratio]0 %Normal0-0The [facility] - WestComment on above:Order Comment: No: Do not add to previous drawPerformed By: #### 70203 #### [facility] [address] [place] [address], USAPLAT QPU405 10*3/pWCigemd111-040Dzz [facility] WestComment on above:Order Comment: No: Do not add to previous draw Performed By: #### 32708 #### [facility] [address] [place] [address], USARBC (Bld) [#/Vol]4.58 10*6/uLNormal4.20-5.70The [facility] WestComment on above:Order Comment: No: Do not add to previous drawPerformed By: #### 14112 #### [facility] [address] [place] [address], USAWBC (Bld) [#/Vol]13.96 10*3/uLHigh4.00-10.60The [facility] WestComment on above:Order Comment: No: Do not add to previous drawPerformed By: #### 82192 #### [facility] [address] [place] [address], USAMAGNESIUM BLOODon 03-02-3146Lwjuhmsdp [Mass/Vol]1.5 mg/dL Low1.9-2.7The [facility] WestComment on above:Order Comment: No: Do not add to previous drawPerformed By: #### 55618, 09317, 74065, 22661, 18022 #### [facility] [address] [place] [address], USAPHOSPHORUS BLOODon 59-53-4803Conqsgjnp [Mass/Vol]3.8 mg/dL Normal2.5-5.0The [facility] WestComment on above:Order Comment: No: Do not add to previous drawPerformed By: #### 70193, 30561, 67980, 68994, 31114 #### [facility] [address] [facility] [place] [address], USAPROTHROMBIN TIMEon 37-64-1918BKO Coag (PPP) [Relative time] 1.12 {INR}Normal0.91-1.16The [facility] - WestComment on above:Order Comment: No: Do not add to previous drawResult Comment: ACCCP RECOMMENDED INR FOR WARFARIN THERAPY ------- CONDITION INR PROPHYLAXIS OF VENOUS THROMBOSIS 2-3 (HIGH-RISK SURGERY) TREATMENT OF VENOUS THROMBOSIS 2-3 TREATMENT OF PULMONARY EMBOLISM 2-3 PREVENTION OF SYSTEMIC EMBOLISM: 2-3 ACUTE MYOCARDIAL INFARCTION TISSUE HEART VALVES VALVULAR HEART DISEASE ATRIAL FIBRILLATION RECURRENT SYSTEMIC EMBOLISM MECHANICAL HEART VALVE 2.5-3.5 FROM: ORAL ANTICOAGULANTS. MECHANISM OF ACTION, CLINICAL EFFECTIVENESS, AND OPTIMAL THERAPEUTIC RANGE. CHEST 1995;108:231S-246S.Performed By: #### 21201 ####[facility] [facility] [place] [place] [address], USAPT Coag (PPP) [Time]14.4 sNormal 12.3-14.8The [facility] - WestComment on above:Order Comment: No: Do not add to previous drawResult Comment: ALL RESULTS MUST BE INTERPRETED WITH RESPECT TO BLOOD DRAWING ARTIFACT OR DILUTION ERROR OF ANTICOAGULANT AT THE TIME OF SAMPLING.Performed By: #### 17909 ####[facility] [place] [address], USACBC W/DIFFon 34-15-3282NDE IMM GRANS0.1 10*3/uLNormal0.0-0.2The [facility] WestComment on above:Performed By: #### 37052 #### [facility] [address] [place] [address], USAABS WERCMPUGJDO70.0 10*3/uLHigh1.6-7.6The [facility] - WestComment on above:Performed By: #### 57175 #### [facility] [address] [facility] [place] [address], [facility] HOSPITALBasophils (Bld) [#/Vol]0.1 10*3/uLNormal0.0-0.2The [facility] WestComment on above:Performed By: #### 52016 #### [facility] [address] [place] [address], USABasophils/100 WBC (Bld)0.6 %Normal0.0-1.0The [facility] - WestComment on above:Performed By: #### 06551 #### [facility] [address] [facility] [place] [address], USAEosinophils (Bld) [#/Vol]0.1 10*3/uLNormal0.0-0.5The [facility] WestComment on above:Performed By: #### 89233 #### [facility] [address] [facility] [place] [address], USAEosinophils/100 WBC (Bld)0.7 %Normal0.0-6.0The [facility] - WestComment on above:Performed By: #### 72082 #### [facility] [address] [place] [address], USAErythrocyte distribution width (RBC) [Ratio]14.7 %Normal 11.5-15.0The [facility] - WestComment on above:Performed By: #### 61738 #### [facility] [address] [place] [address], USAHematocrit (Bld) [Volume fraction]47.3 %Bgadcz46.0-50.0The [facility] - WestComment on above:Performed By: #### 83349 #### [facility] [address] [facility] [place] [address], USAHemoglobin (Bld) [Mass/Vol]15.5 g/fPZxobrz70.0-17.0The [facility] - WestComment on above:Performed By: #### 66651 #### [facility] [address] [place] [address], USAIMMATURE GRANS0.7 %Normal0.0-1.0The [facility] - WestComment on above:Performed By: #### 78586 #### [facility] [address] [facility] [place] [address], USALymphocytes (Bld) [#/Vol]0.6 10*3/uLLow1.2-4.0The [facility] - WestComment on above:Performed By: #### 16605 #### [facility] [address] [place] [address], USALymphocytes/100 WBC (Bld)4.3 %Low20.0-45.0The [facility] - WestComment on above:Performed By: #### 29543 #### [facility] [address] [facility] [place] [place] [address], [facility] (RBC) [Entitic mass]31.0 shJpsqie03.0-33.0The [facility] - WestComment on above:Performed By: #### 13022 #### [facility] [address] [facility] [place] [address], USAMCHC (RBC) [Mass/Vol]32.8 g/kGHpuyzb29.0-35.0The [facility] - WestComment on above:Performed By: #### 03210 #### [facility] [address] [place] [address], [facility] HOSPITALMCV (RBC) [Entitic vol]94.6 pWPdjszq17.0-98.0The [facility] - WestComment on above:Performed By: #### 07540 #### [facility] [address] [place] [address], USAMonocytes (Bld) [#/Vol]1.0 10*3/uLNormal0.1-1.0The [facility] WestComment on above:Performed By: #### 57622 #### [facility] [address] [place] [address], USAMONOS7.3 %Normal5.0-12.0The [facility] - WestComment on above:Performed By: #### 03736 #### [facility] [address] [place] [address], USANeutrophils/100 WBC (Bld)86.4 %High40.0-72.0The [facility] - WestComment on above:Performed By: #### 93564 #### [facility] [address] [place] [address], USANucleated RBC/100 WBC (Bld) [Ratio]0 %Normal0-0The [facility] WestComment on above:Performed By: #### 33090 #### [facility] [address] [place] [address], USAPLAT JMR696 10*3/tNSuwkiq340-017Uab [facility] WestComment on above:Performed By: #### 90053 #### [facility] [address] [place] [address], USARBC (Bld) [#/Vol]5.00 10*6/uLNormal4.20-5.70The [facility] WestComment on above:Performed By: #### 81077 #### [facility] [address] [place] [address], USAWBC (Bld) [#/Vol]13.82 10*3/uLHigh4.00-10.60The [facility] WestComment on above:Performed By: #### 53206 #### [facility] [address] [place] [address], USACOMP METABOLIC PANELon 05-59-1773Jbhbzrc [Mass/Vol]4.7 g/dL Normal3.5-5.7The [facility] - WestComment on above:Performed By: #### 27161, 34504, 62581, 07500, 88535 #### [facility] [address] [facility] [place] [address], USAALKALINE YIGZDE31 IU/TRvpuqo33-246Ryr [facility] WestComment on above:Performed By: #### 82768, 97227, 32055, 08468, 88641 #### [facility] [address] [facility] [place] [address], USAALT [Catalytic activity/Vol]27 U/LNormal7-52The [facility] - WestComment on above:Performed By: #### 67801, 74173, 32062, 83640, 09121 #### [facility] [address] [facility] [place] [address], USAAST [Catalytic activity/Vol]21 U/NOefkji57-55Kvw [facility] WestComment on above:Performed By: #### 56712, 62004, 74300, 97149, 45449 #### [facility] [address] [place] [address], USABilirubin [Mass/Vol]0.6 mg/dLNormal0.3-1.0The [facility] - WestComment on above:Performed By: #### 75040, 78860, 40308, 26500, 73937 #### [facility] [address] [place] [address], USACalcium [Mass/Vol]9.9 mg/dLNormal8.6-10.3The [facility] WestComment on above:Performed By: #### 25175, 47708, 24704, 65108, 56307 #### [facility] [address] [place] [address], USAChloride [Moles/Vol]104 mmol/LApowah17-258Vuq [facility] WestComment on above:Performed By: #### 68169, 09412, 80963, 68875, 82555 #### [facility] [address] [place] [address], USACO2 [Moles/Vol]25 mmol/FZnkzvl97-43Bad [facility] WestComment on above:Performed By: #### 82180, 42766, 13658, 00998, 99344 #### [facility] [address] [place] [address], USACreatinine [Mass/Vol]1.40 mg/dLHigh0.70-1.30The [facility] - WestComment on above:Performed By: #### 60715, 65639, 18147, 23762, 17481 #### [facility] [address] [place] [address], USAeGFR- non- Kbhnyvyo88 ml/min/1.73sq mAbnormal>60The [facility] - WestComment on above:Performed By: #### 71946, 91487, 67545, 47511, 07538 #### [facility] [address] [place] [address], USAGFR/1.73 sq M.predicted among blacks MDRD (S/P/Bld) [Vol rate/Area]mL/min/{1.73_m2}Normal>60The [facility] Comment on above:Performed By: #### 35393, 39765, 74123, 08547, 39301 #### [facility] [address] [place] [address], USAGlucose [Mass/Vol]133 mg/sUGjtv99-247Jxi [facility] WestComment on above:Performed By: #### 75749, 44901, 65636, 41212, 46108 #### [facility] [address] [place] [address], USAPotassium [Moles/Vol]4.8 mmol/LNormal3.5-5.1The [facility] - WestComment on above:Performed By: #### 33567, 86016, 20534, 63676, 07901 #### [facility] [address] [place] [address], USAProtein [Mass/Vol]7.1 g/dLNormal6.0-8.3The [facility] - WestComment on above:Performed By: #### 59108, 41244, 47614, 15652, 07917 #### [facility] [address] [facility] [place] [address], USASodium [Moles/Vol]137 mmol/MZnelkb352-207Fea [facility] WestComment on above:Performed By: #### 87716, 66187, 34982, 36660, 39752 #### [facility] [address] [facility] [place] [address], USAUrea nitrogen [Mass/Vol]19 mg/dLNormal7-25The [facility] - WestComment on above:Performed By: #### 05522, 17607, 72030, 11092, 47086 #### [facility] [address] [facility] [place] [address], USACT ABDOMEN AND PELVIS WO CONTRASTon 91-53-5908WQ ABDOMEN AND PELVIS WO CONTRASTUnOhioHealth [facility] Hospital Department of Radiology [address] [place] [address] [id number] Patient Name: VISHAL DUKE : 1960 Sex: M Age: Race: White Pt. 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 No evidence of cyst rupture. Right [...] achievable. Electronically signed: José Herman. Transcribed by: [email or web address], User Resident: Electronically Signed by: JOSÉ HERMAN @ 12/01/2020 11:45 AMNormalThe [facility] - WestComment on above:Order Comment: No: Do not add to previous draw CV'D BY IMM LAB AT 1240LIPASE BLOODon 10-78-7779HOYMVE24 Units/BIfrcjx97-33Pky [facility] - WestComment on above:Performed By: #### 51211, 66136, 21079, 82370, 78623 #### [facility] [address] [place] [address], [facility] HOSPITALURINALYSIS REFLEXon 12-22-6381Thyjwrgnuv (U)SL CLOUDY AbnormalCLEARThe [facility] Hospital - WestComment on above:Order Comment: Yes: Add to Previous draw if ablePerformed By: #### 15815, 13587, 03706, 74123, 89074 #### [facility] [address] [place] [address], USABilirubin Ql (U)NegativeNormalNEGATIVEThe [facility] - WestComment on above:Order Comment: Yes: Add to Previous draw if ablePerformed By: #### 70074, 44370, 21951, 93016, 96265 #### [facility] [address] [place] [address], USAColor (U)AMBERAbnormalYELLOWThe [facility] Hospital - WestComment on above:Order Comment: Yes: Add to Previous draw if able Performed By: #### 64917, 18470, 08087, 62576, 03805 #### [facility] [address] [place] [address], USAEPISNONE SEENNormalFEW,OCC,NONE SEENThe [facility] - WestComment on above:Order Comment: Yes: Add to Previous draw if ablePerformed By: #### 05087, 61279, 49271, 63212, 41604 #### [facility] [address] [place] [address], USAGlucose Ql (U)NegativeNormalNEGATIVEThe [facility] WestComapex medical center on above:Order Comment: Yes: Add to Previous draw if ablePerformed By: #### 84832, 21932, 88201, 19756, 04892 #### [facility] [address] [place] [address], USAHemoglobin Ql (U)NegativeNormalNEGATIVEThe [facility] WestComapex medical center on above:Order Comment: Yes: Add to Previous draw if ablePerformed By: #### 00096, 98298, 38125, 36794, 65009 #### [facility] [address] [place] [address], USAKETONENegativeNormalNEGATIVEThe [facility] WestComapex medical center on above:Order Comment: Yes: Add to Previous draw if able Performed By: #### 96327, 13034, 32041, 88230, 71443 #### [facility] [address] [place] [address], USALEUK ESTERNegativeNormalNEGATIVEThe [facility] Hospital - WestComment on above:Order Comment: Yes: Add to Previous draw if able Performed By: #### 38020, 90800, 49329, 47083, 35270 #### [facility] [address] [place] [address], USAMUCUS THREADSMODAbnormalNONE SEENThe [facility] Hospital - WestComment on above:Order Comment: Yes: Add to Previous draw if able Performed By: #### [id number], [id number], [id number], [id number], [id number] #### [facility] [address] [place] [address], USANitrite Ql (U)NegativeNormalNEGATIVEThe [facility] - WestComapex medical center on above:Order Comment: Yes: Add to Previous draw if ablePerformed By: #### [id number], [id number], [id number], [id number], [id number] #### [facility] [address] [place] [address], USApH (U)5.0 [pH]Normal5.0-8.0The [facility] WestComape[facility] on above:Order Comment: Yes: Add to Previous draw if able Performed By: #### 14939, 71762, 65568, 76641, 88493 #### [facility] [address] [place] [address], USAProtein Ql (U)30 mg/dLAbnormalNEGATIVEThe [facility] - WestComment on above:Order Comment: Yes: Add to Previous draw if ablePerformed By: #### 31126, 59453, 11633, 78295, 66797 #### [facility] [address] [place] [address], USARBC0-2AbnormalNONE SEENThe [facility] Hospital - WestComment on above:Order Comment: Yes: Add to Previous draw if ablePerformed By: #### 78473, 79043, 16710, 01839, 71834 #### [facility] [address] [place] [address], USASPEC GRAV1.081Moty7.015-1.020The [facility] - WestComment on above:Order Comment: Yes: Add to Previous draw if able Performed By: #### 38043, 58145, 82101, 28134, 65245 #### [facility] [address] [place] [address], [facility] HOSPITALWBC UA0-2AbnormalNONE SEENThe [facility] - WestComment on above:Order Comment: Yes: Add to Previous draw if ablePerformed By: #### 52152, 84938, 43028, 86917, 81174 #### [facility] [address] [place] [address], [facility]AL HOSPITALPulmonary Functionon 52-34-3325Pljpkikau FunctionMR #: [id number] [facility] PT. Name: Vishal Duke Date: 11/27/2020 Date [...] Syed MD Date Trans: 11/29/2020 01:09 P/ DN_JN:[id number] cc: Rosa M Gonzales M.D. [address] [place] [address] [facility] [address]VaaxcpOsoBlanchard Valley Health System Bluffton HospitalARTERIAL BLOOD GAS W/COOXon 49-11-2027VPGU EXCESS3 mmol/XIvvelr-3-0Kba [facility] - WestComment on above:Performed By: #### 44182, 79078, 89108, 65388, 55900 #### [facility] [address] [place] [address], USACOHB1.5 %Normal0.0-1.5The [facility] - WestComment on above:Performed By: #### 69365, 92597, 15309, 16315, 70735 #### [facility] [address] [place] [address], USADELIVERY SYSTEMSNOVANT HEALTH REHABILITATION HOSPITALNoTriHealth Bethesda North HospitalComment on above:Performed By: #### 05970, 33308, 98387, 95191, 18414 #### [facility] [address] [place] [address], YSIHKZ10 %NormalThe [facility] Hospital - WestComment on above:Performed By: #### 23853, 29074, 42297, 60918, 59164 #### [facility] [address] [place] [address], USAHCO3 (Bld) [Moles/Vol]26 mmol/BWhlptd62-04Llq [facility] - WestComment on above:Performed By: #### 56353, 14889, 71326, 26584, 34695 #### [facility] [address] [place] [address], USAMETHB1.2 %Normal0.0-1.5The [facility] - WestComment on above:Performed By: #### 33025, 53721, 69503, 28421, 86042 #### [facility] [address] [place] [address], USAOxygen (Bld) [Partial pressure]93 mm[Hg]Uoiqft43-152Bzj [facility] - WestComment on above:Performed By: #### 02187, 28464, 99767, 65974, 43235 #### [facility] [address] [place] [address], USAOxygen saturation in Blood95.6 %Tfhdjw49.0-97.0The [facility] - WestComment on above:Performed By: #### 95445, 26679, 84129, 18032, 44024 #### [facility] [address] [place] [address], RGRNEQ404 utNlArlmca16-92Izw [facility] - WestComment on above:Performed By: #### 39111, 79636, 25027, 02418, 53625 #### [facility] [address] [place] [address], USApH (Bld)7.48 [pH]High7.35-7.45The [facility] - WestComment on above:Performed By: #### 88702, 10625, 18927, 70230, 51834 #### [facility] [address] [place] [address], HVLZNB98.4 g/fICkvihr25.0-16.3The [facility] - WestComment on above:Performed By: #### 25873, 84209, 82568, 74084, 40167 #### [facility] [address] [place] [address], USACREATININE BLOODon 97-27-8150Lyelyllldh [Mass/Vol]1.10 mg/dLNormal0.70-1.30The [facility] - WestComment on above: Order Comment: No: Do not add to previous drawPerformed By: #### 14610, 25671, 50217, 05627, 94229 #### [facility] [address] [place] [address], USAGFR/1.73 sq M.predicted among blacks MDRD (S/P/Bld) [Vol rate/Area]mL/min/{1.73_m2}Normal>60The [facility] Comment on above:Order Comment: No: Do not add to previous drawPerformed By: #### 38534, 11341, 60979, 58067, 50437 #### [facility] [address] [place] [address], USAGFR/1.73 sq M.predicted among non-blacks MDRD (S/P/Bld) [Vol rate/Area]mL/min/{1.73_m2}Normal>60The [facility] Comment on above:Order Comment: No: Do not add to previous drawPerformed By: #### 09605, 65822, 77287, 26619, 49947 #### [facility] [address] [place] [address], USACardiovascular Lab Reporton [id number] Lab ReportUnProtestant Hospital [facility] MR #: [id number] Department of Physician: Domo Mejia M.D. Division of Service Date: 10/29/2020 Cardiology Birthdate: 1960 Adult Cardiovascular Room #: 3AB [id number] [facility] [address] [address] Cardiovascular Laboratory Report FINAL IMPRESSIONS: 1. Severe [...] daily for minimum of 6 months preferably intermediate. 6. Will consider elective revascularization of the right coronary artery should the patient continue to experience significant exertional angina; this will be a high risk procedure given tortuosity, calcification and ectasia. 7. Follow up with Dr. Chester in the [place] office in the next 1 to 2 [...] artery, failed attempt at deployment of a 6-Welsh MynxGrip closure device. METHODS: After risks, benefits, and alternatives were explained, written informed consent was obtained. The patient was prepped and draped in usual sterile fashion over both groins. Using 1% lidocaine solution, local infiltration anesthesia was achieved. Using a micropuncture kit access to the right common femoral artery was obtained. A 6-Welsh x 11 cm sheath was inserted without difficulty. Baseline femoral angiography was performed. Bilateral selective coronary angiography was performed using JL4 and JR4 catheters. Angiography of internal mammary artery graft was performed using a 6-Welsh IM catheter. Limited angiography of the left subclavian was performed after retracting the catheter into the artery. After reviewing the images, it was elected to proceed with an interventional procedure. A 6-Welsh XB3.5 guide catheter was advanced over J-wire [...] pressure to achieve optimal hemostasis once a 6-Welsh MynxGrip closure device failed to deploy. Overall, [...] patent left internal mammar (more content not included)...NormalThe [facility] Hospital - WestBASIC METABOLIC PANELon 55-31-2935Ixseiam [Mass/Vol]8.1 mg/dLLow8.6-10.3The [facility] - WestComment on above:Order Comment: Yes: Add to Previous draw if able Performed By: #### 04184, 44138, 72566, 83647, 71620 #### [facility] [address] [place] [address], USAChloride [Moles/Vol]103 mmol/MQjdrmd34-586Amb [facility] - WestComment on above:Order Comment: Yes: Add to Previous draw if ablePerformed By: #### 00172, 08986, 31384, 74658, 23515 #### [facility] [address] [place] [address], USACO2 [Moles/Vol]25 mmol/YZbsmmi81-77Ldq [facility] - WestComment on above:Order Comment: Yes: Add to Previous draw if able Performed By: #### 06177, 54652, 49406, 82393, 60853 #### [facility] [address] [place] [address], USACreatinine [Mass/Vol]0.88 mg/dLNormal0.70-1.30The [facility] - WestComment on above:Order Comment: Yes: Add to Previous draw if ablePerformed By: #### 12679, 51672, 76115, 98295, 12819 #### [facility] [address] [place] [address], USAGFR/1.73 sq M.predicted among blacks MDRD (S/P/Bld) [Vol rate/Area]mL/min/{1.73_m2}Normal>60The [facility] Comment on above:Order Comment: Yes: Add to Previous draw if ablePerformed By: #### 72451, 38907, 88122, 58851, 05363 #### [facility] [address] [place] [address], USAGFR/1.73 sq M.predicted among non-blacks MDRD (S/P/Bld) [Vol rate/Area]mL/min/{1.73_m2}Normal>60The [facility] Comment on above:Order Comment: Yes: Add to Previous draw if ablePerformed By: #### 42375, 90453, 16081, 94716, 31211 #### [facility] [address] [place] [address], USAGlucose [Mass/Vol]119 mg/uANsvo35-784Vsf [facility] WestComment on above:Order Comment: Yes: Add to Previous draw if ablePerformed By: #### 88840, 27747, 34519, 90455, 80909 #### [facility] [address] [place] [address], USAPotassium [Moles/Vol]3.6 mmol/LNormal3.5-5.1The [facility] - WestComment on above:Order Comment: Yes: Add to Previous draw if ablePerformed By: #### 65003, 81388, 76420, 84699, 93493 #### [facility] [address] [place] [address], USASodium [Moles/Vol]133 mmol/ETiz875-938Urp [facility] - WestComment on above:Order Comment: Yes: Add to Previous draw if ablePerformed By: #### 84410, 73213, 51849, 51222, 52874 #### [facility] [address] [place] [address], USAUrea nitrogen [Mass/Vol]17 mg/dLNormal7-25The [facility] - WestComment on above:Order Comment: Yes: Add to Previous draw if ablePerformed By: #### 03658, 30098, 03052, 60328, 86043 #### [facility] [address] [place] [address], USACBC COMPLETE BLOOD COUNTon 58-13-5479Cjpluafslyy distribution width (RBC) [Ratio]13.3 %Osuyjw90.5-15.0The [facility] - WestComment on above:Order Comment: No: Do not add to previous draw Performed By: #### 22558 #### [facility] [address] [place] [address], USAHematocrit (Bld) [Volume fraction]47.6 %Ntsabi21.0-50.0The [facility] - WestComment on above:Order Comment: No: Do not add to previous drawPerformed By: #### 29088 #### [facility] [address] [place] [address], [facility] HOSPITALHemoglobin (Bld) [Mass/Vol]15.9 g/aBNcdovm06.0-17.0The [facility] - WestComment on above:Order Comment: No: Do not add to previous drawPerformed By: #### 86017 #### [facility] [address] [place] [address], [facility]H (RBC) [Entitic mass]29.1 zvTkukes87.0-33.0The [facility] - WestComment on above:Order Comment: No: Do not add to previous drawPerformed By: #### 49504 #### [facility] [address] [place] [address], [facility] HOSPITALMCHC (RBC) [Mass/Vol]33.4 g/mBMlewht12.0-35.0The [facility] - WestComment on above:Order Comment: No: Do not add to previous drawPerformed By: #### 44758 #### [facility] [address] [place] [address], [facility] ADA[facility] (RBC) [Entitic vol]87.2 yZVqbwcs27.0-98.0The [facility] - WestComment on above:Order Comment: No: Do not add to previous drawPerformed By: #### 79109 #### [facility] [address] [place] [address], USANucleated RBC/100 WBC (Bld) [Ratio]0 %Normal0-0The [facility] - WestComment on above:Order Comment: No: Do not add to previous drawPerformed By: #### 36844 #### [facility] [address] [place] [address], USAPLAT BHJ465 10*3/yVXjdmaa019-629Lpv [facility] - WestComment on above:Order Comment: No: Do not add to previous draw Performed By: #### 77048 #### [facility] [address] [facility] [place] [place] [address], USARBC (Bld) [#/Vol]5.46 10*6/uLNormal4.20-5.70The [facility] - WestComment on above:Order Comment: No: Do not add to previous drawPerformed By: #### 91284 #### [facility] [address] [facility] [place] [address], USAWBC (Bld) [#/Vol]10.07 10*3/uLNormal4.00-10.60The [facility] - WestComment on above:Order Comment: No: Do not add to previous drawPerformed By: #### 96604 #### [address] [place] [address], USAPORTABLE CHEST 1 VIEWon 82-45-8776ZQAJZTNQ CHEST 1 VIEW [facility] Department of Radiology [address] [place] [id number] Patient Name: VISHAL DUKE : 1960 Sex: M Age: Race: White Pt. Location: [id number] Patient Status: I Ordered Date: 08/19/2020 6:00:00 [...] right. Electronically signed: Dariela Vincent. Transcribed by: [id number], User Resident: Electronically Signed by: DARIELA VINCENT @ 08/19/2020 10:20 AMNormalThe [facility] - WestComment on above:Order Comment: No: Do not add to previous draw CV'D BY IMM LAB AT [address]TACROLIMUSon 34-20-4764Fhgsiiezug (Bld) [Mass/Vol]8.5 ng/mLNormal5.0-20.0The [facility] - WestComment on above:Order Comment: No: Do not add to previous drawResult Comment: The SANDHU PORTFOLIO LEAD Tacrolimus assay is a delayed one-step immunoassay for the quantitative determination of tacrolimus in human whole blood using the chemiluminescent microparticle immunoassay (CMIA) technology with flexible assay protocols, referred to as Chemiflex.Performed By: #### 24193, 55754, 02974, 48690, 05507 #### [facility] [address] [facility] [place] [place] [address], [facility] HOSPITALBASI METABOLIC PANELon 88-07-7580Ohulqov [Mass/Vol]8.8 mg/dLNormal8.6-10.3The [facility] - WestComment on above:Order Comment: No: Do not add to previous draw Pt in bath room askme to come backPerformed By: #### 59557 #### [facility] [address] [place] [address], USAChloride [Moles/Vol]100 mmol/SLruplr45-057Lgu [facility] WestComment on above:Order Comment: No: Do not add to previous draw Pt in bath room askme to come backPerformed By: #### 70878 #### [facility] [address] [place] [address], USACO2 [Moles/Vol]28 mmol/IByyosp80-14Pox [facility] - WestComment on above:Order Comment: No: Do not add to previous draw Pt in bath room askme to come backPerformed By: #### 31756 #### [facility] [address] [place] [address], USACreatinine [Mass/Vol]0.87 mg/dLNormal0.70-1.30The [facility] - WestComment on above:Order Comment: No: Do not add to previous draw Pt in bath room askme to come backPerformed By: #### 91472 #### [facility] [address] [place] [address], USAGFR/1.73 sq M.predicted among blacks MDRD (S/P/Bld) [Vol rate/Area]mL/min/{1.73_m2}Normal>60The [facility] Comment on above:Order Comment: No: Do not add to previous draw Pt in bath room askme to come backPerformed By: #### 61019 #### [facility] [address] [place] [address], USAGFR/1.73 sq M.predicted among non-blacks MDRD (S/P/Bld) [Vol rate/Area]mL/min/{1.73_m2}Normal>60The [facility] Comment on above:Order Comment: No: Do not add to previous draw Pt in bath room askme to come backPerformed By: #### 16653 #### [facility] [address] [place] [address], USAGlucose [Mass/Vol]110 mg/rSZarx58-341Few [facility] WestComment on above:Order Comment: No: Do not add to previous draw Pt in bath room askme to come backPerformed By: #### 41423 #### [facility] [address] [place] [address], USAPotassium [Moles/Vol]3.7 mmol/LNormal3.5-5.1The [facility] - WestComment on above:Order Comment: No: Do not add to previous draw Pt in bath room askme to come backPerformed By: #### 03860 #### [facility] [address] [facility] [place] [address], USASodium [Moles/Vol]137 mmol/WTzzwgg553-549Zjc [facility] WestComment on above:Order Comment: No: Do not add to previous draw Pt in bath room askme to come backPerformed By: #### 35668 #### [facility] [address] [place] [address], USAUrea nitrogen [Mass/Vol]18 mg/dLNormal7-25The [facility] WestComment on above:Order Comment: No: Do not add to previous draw Pt in bath room askme to come backPerformed By: #### 57554 #### [facility] [address] [facility] [place] [address], USATACROLIMUSon 23-28-8518Dxsowvzkcq (Bld) [Mass/Vol]4.0 ng/mL Low5.0-20.0The [facility] - WestComment on above:Order Comment: UnknownResult Comment: The SANDHU PORTFOLIO LEAD Tacrolimus assay is a delayed one-step immunoassay for the quantitative determination of tacrolimus in human whole blood using the chemiluminescent microparticle immunoassay (CMIA) technology with flexible assay protocols, referred to as Chemiflex.Performed By: #### 71370, 35242, 32461, 72398, 59454 #### [facility] [address] [place] [address], USABASIC METABOLIC PANELon 21-64-0325Yorqato [Mass/Vol]8.3 mg/dLLow8.6-10.3The [facility] WestComment on above:Order Comment: Yes: Add to Previous draw if ablePerformed By: #### 33372, 01544, 08432, 83507, 24625 #### [facility] [address] [place] [address], USAChloride [Moles/Vol]104 mmol/TUyslvc88-048Ehq [facility] WestComment on above:Order Comment: Yes: Add to Previous draw if ablePerformed By: #### 92118, 47688, 62106, 36024, 08019 #### [facility] [address] [place] [address], USACO2 [Moles/Vol]24 mmol/OGmrnyw82-00Spg [facility] WestComment on above:Order Comment: Yes: Add to Previous draw if able Performed By: #### 94795, 94794, 86345, 85846, 11000 #### [facility] [address] [place] [address], USACreatinine [Mass/Vol]0.82 mg/dLNormal0.70-1.30The [facility] - WestComment on above:Order Comment: Yes: Add to Previous draw if ablePerformed By: #### 51844, 04901, 72436, 99950, 46032 #### [facility] [address] [place] [address], USAGFR/1.73 sq M.predicted among blacks MDRD (S/P/Bld) [Vol rate/Area]mL/min/{1.73_m2}Normal>60The [facility] Comment on above:Order Comment: Yes: Add to Previous draw if ablePerformed By: #### 80608, 87721, 39707, 17859, 76137 #### [facility] [address] [place] [address], USAGFR/1.73 sq M.predicted among non-blacks MDRD (S/P/Bld) [Vol rate/Area]mL/min/{1.73_m2}Normal>60The [facility] Comment on above:Order Comment: Yes: Add to Previous draw if ablePerformed By: #### 70222, 19319, 58905, 74503, 68549 #### [facility] [address] [place] [address], USAGlucose [Mass/Vol]114 mg/yPFnqw69-634Ttk [facility] WestComment on above:Order Comment: Yes: Add to Previous draw if ablePerformed By: #### 50803, 90946, 92748, 85537, 03914 #### [facility] [address] [place] [address], USAPotassium [Moles/Vol]4.1 mmol/LNormal3.5-5.1The [facility] - WestComment on above:Order Comment: Yes: Add to Previous draw if ablePerformed By: #### 19367, 72645, 83403, 51144, 64507 #### [facility] [address] [facility] [place] [address], USASodium [Moles/Vol]135 mmol/CQed269-805Wkj [facility] WestComment on above:Order Comment: Yes: Add to Previous draw if ablePerformed By: #### 29287, 43420, 51839, 03915, 91584 #### [facility] [address] [place] [address], USAUrea nitrogen [Mass/Vol]24 mg/dLNormal7-25The [facility] WestComment on above:Order Comment: Yes: Add to Previous draw if ablePerformed By: #### 97412, 34821, 25543, 79842, 20004 #### [facility] [address] [place] [address], USAMAGNESIUM BLOODon 11-80-4582Cipjqqsio [Mass/Vol]1.9 mg/dL Normal1.9-2.7The [facility] - WestComment on above:Order Comment: No: Do not add to previous drawPerformed By: #### 31502, 46655, 59589 ####[facility] [place] [address], [place] PHOSPHORUS BLOODon 92-61-6592Xalgxapmb [Mass/Vol]3.1 mg/dLNormal2.5-5.0The [facility] - WestComment on above:Order Comment: No: Do not add to previous drawPerformed By: #### 50434, 15856, 17244 ####[facility] [facility] [place] [address], [facility]AL HOSPITALTACROLIMUSon 21-37-5980Tnhwbdhbgq (Bld) [Mass/Vol]3.5 ng/mLLow5.0-20.0The [facility] WestComment on above:Order Comment: UnknownResult Comment: The SANDHU PORTFOLIO LEAD Tacrolimus assay is a delayed one-step immunoassay for the quantitative determination of tacrolimus in human whole blood using the chemiluminescent microparticle immunoassay (CMIA) technology with flexible assay protocols, referred to as Chemiflex.Performed By: #### 26763, 87435, 23187, 93550, 55432 #### [facility] [address] [facility] [place] [address], USAC REACTIVE PROTEINon 77-18-8862PWW [Mass/Vol]20.9 mg/LHigh 0.0-7.0The [facility] - WestComment on above:Order Comment: Yes: Add to Previous draw if ablePerformed By: #### 34226, 11773, 96841, 54753, 29596 #### [facility] [address] [facility] [place] [place] [address], [facility] HOSPITALCPKon 32-33-3816TX [Catalytic activity/Vol]38 U/LNormal 30-223The [facility] - WestComment on above:Order Comment: UnknownPerformed By: #### 19884, 36517, 69513, 39614, 11279 #### [facility] [address] [place] [address], USAD DIMER TESTon 72-48-9159H-DIMER TEST2.03 mcg/mL FEUHigh 0.27-0.49The [facility] - WestComment on above:Order Comment: Yes: Add to Previous draw if ableResult Comment: D-Dimer values of less than 0.50 ug/ml (FEU) are considered to be a negative predictor of thrombosis. However, the D-Dimer result should be used in conjunction with pretest probability and should not be used alone to diagnose a thrombotic event.Performed By: #### 41293, 16485, 09201, 80885, 17551 #### [facility] [address] [place] [address], USAFERRITINon 74-42-1628Puajxkod [Mass/Vol]1412 ng/mLHigh 24-336The [facility] - WestComment on above:Order Comment: UnknownPerformed By: #### 15060, 71548, 60019, 86311, 11963 #### [facility] [address] [facility] [place] [address], USALDH BLOODon 92-32-6784AUE587 Units/PKobq855-690Lys [facility] - WestComment on above:Order Comment: Unknown Performed By: #### 19974, 09155, 18470, 75983, 99641 #### [facility] [address] [facility] [place] [address], USALIVER BATTERYon 82-06-6719Xyfgojq [Mass/Vol]3.1 g/dLLow 3.5-5.7The [facility] - WestComment on above:Order Comment: UnknownPerformed By: #### 27847, 17182, 15369, 20303, 83911 #### [facility] [address] [facility] [place] [address], USAALKALINE XRTTGC71 IU/UUlzvcn30-780Dxf [facility] - WestComment on above:Order Comment: UnknownPerformed By: #### 52837, 78689, 06194, 55527, 02070 #### [facility] [address] [place] [address], USAALT [Catalytic activity/Vol]108 U/LHigh7-52The Lake [facility] WestComment on above:Order Comment: UnknownPerformed By: #### 84599, 77508, 13829, 09022, 23687 #### [facility] [address] [place] [address], USAAST [Catalytic activity/Vol]54 U/XFyud97-24Ymu [facility] WestComment on above:Order Comment: UnknownPerformed By: #### 74529, 29813, 77148, 61862, 80812 #### [facility] [address] [place] [address], USABilirubin [Mass/Vol]0.8 mg/dLNormal0.3-1.0The [facility] WestComment on above:Order Comment: UnknownPerformed By: #### 10196, 93531, 26325, 43807, 00425 #### [facility] [address] [place] [address], USABilirubin.direct [Mass/Vol]0.2 mg/dLNormal0.0-0.2The [facility] WestComment on above:Order Comment: Unknown Performed By: #### 97618, 31305, 51776, 83176, 78650 #### [facility] [address] [place] [address], USAProtein [Mass/Vol]5.9 g/dLLow6.0-8.3The [facility] WestComment on above:Order Comment: UnknownPerformed By: #### 32558, 41658, 01562, 01927, 11150 #### [facility] [address] [place] [address], USATACROLIMUSon 20-69-3587Fypwsywyoo (Bld) [Mass/Vol]4.4 ng/mL Low5.0-20.0The [facility] WestComment on above:Order Comment: Yes: Add to Previous draw if ableResult Comment: The SANDHU PORTFOLIO LEAD Tacrolimus assay is a delayed one-step immunoassay for the quantitative determination of tacrolimus in human whole blood using the chemiluminescent microparticle immunoassay (CMIA) technology with flexible assay protocols, referred to as Chemiflex.Performed By: #### 32964, 45070, 12188, 24683, 28789 #### [facility] [address] [place] [address], USABASIC METABOLIC PANELon 47-83-4835Vadxmdk [Mass/Vol]8.2 mg/dLLow8.6-10.3The [facility] WestComment on above:Order Comment: No: Do not add to previous drawPerformed By: #### 92535, 64731, 34521, 73340, 74976 #### [facility] [address] [place] [address], USAChloride [Moles/Vol]102 mmol/FAgfavf63-902Iiu [facility] WestComment on above:Order Comment: No: Do not add to previous drawPerformed By: #### 26935, 49926, 12625, 76624, 99456 #### [facility] [address] [place] [address], USACO2 [Moles/Vol]19 mmol/KZcm72-70Mqc [facility] WestComment on above:Order Comment: No: Do not add to previous draw Performed By: #### 69783, 77882, 73524, 75642, 57424 #### [facility] [address] [place] [address], USACreatinine [Mass/Vol]0.95 mg/dLNormal0.70-1.30The [facility] WestComment on above:Order Comment: No: Do not add to previous drawPerformed By: #### 96399, 96689, 24316, 49762, 28458 #### [facility] [address] [place] [address], USAGFR/1.73 sq M.predicted among blacks MDRD (S/P/Bld) [Vol rate/Area]mL/min/{1.73_m2}Normal>60The [facility] Comment on above:Order Comment: No: Do not add to previous drawPerformed By: #### 47854, 45587, 19169, 93110, 22182 #### [facility] [address] [place] [address], USAGFR/1.73 sq M.predicted among non-blacks MDRD (S/P/Bld) [Vol rate/Area]mL/min/{1.73_m2}Normal>60The [facility] Comment on above:Order Comment: No: Do not add to previous drawPerformed By: #### 84992, 51187, 95002, 31410, 99164 #### [facility] [address] [place] [address], USAGlucose [Mass/Vol]253 mg/lLEmyv00-035Xwq [facility] WestComment on above:Order Comment: No: Do not add to previous drawPerformed By: #### 92921, 81052, 16776, 51036, 11792 #### [facility] [address] [place] [address], USAPotassium [Moles/Vol]4.0 mmol/LNormal3.5-5.1The [facility] WestComment on above:Order Comment: No: Do not add to previous drawPerformed By: #### 88962, 32126, 79762, 27775, 34696 #### [facility] [address] [place] [address], USASodium [Moles/Vol]130 mmol/ESel399-353Ddy [facility] WestComment on above:Order Comment: No: Do not add to previous drawPerformed By: #### 89249, 77724, 16764, 37640, 32953 #### [facility] [address] [place] [address], USAUrea nitrogen [Mass/Vol]34 mg/dLHigh7-25The [facility] WestComment on above:Order Comment: No: Do not add to previous drawPerformed By: #### 32663, 08747, 90180, 94376, 04210 #### [facility] [address] [place] [address], USAC REACTIVE PROTEINon 70-44-1364AVO [Mass/Vol]19.7 mg/LHigh 0.0-7.0The [facility] WestComment on above:Order Comment: No: Do not add to previous drawPerformed By: #### 73391 #### [facility] [address] [place] [address], USACOMP METABOLIC PANELon 86-71-5330Kpuhzcm [Mass/Vol]3.0 g/dL Low3.5-5.7The [facility] WestComment on above:Order Comment: This order is a replacement of the rejected order with accession [id number].Performed By: #### 99795, 19536, 41275, 08219, 00921 #### [facility] [address] [place] [address], USAALKALINE RNBSLK32 IU/LVtwukk09-790Uuy [facility] WestComment on above:Order Comment: This order is a replacement of the rejected order with accession [id number].Performed By: #### 38374, 52307, 14743, 24836, 35250 #### [facility] [address] [place] [address], USAALT [Catalytic activity/Vol]80 U/LHigh7-52The [facility] WestComment on above:Order Comment: This order is a replacement of the rejected order with accession [id number].Performed By: #### 67067, 46387, 44238, 83789, 26748 #### [facility] [address] [place] [address], USAAST [Catalytic activity/Vol]52 U/RZwgo28-63Qfm [facility] WestComment on above:Order Comment: This order is a replacement of the rejected order with accession [id number].Performed By: #### 44642, 47614, 74321, 15102, 00418 #### [facility] [address] [place] [address], USABilirubin [Mass/Vol]0.7 mg/dLNormal0.3-1.0The [facility] WestComment on above:Order Comment: This order is a replacement of the rejected order with accession [id number].Performed By: #### 92974, 50609, 11803, 58841, 05376 #### [facility] [address] [place] [address], USACalcium [Mass/Vol]8.1 mg/dLLow8.6-10.3The [facility]Com[facility] on above:Order Comment: This order is a replacement of the rejected order with accession [id number].Performed By: #### 71365, 32319, 72878, 58399, 65647 #### [facility] [address] [place] [address], USAChloride [Moles/Vol]102 mmol/LOiojna13-652Pjm [facility]Com[facility] on above:Order Comment: This order is a replacement of the rejected order with accession [id number].Performed By: #### 10767, 72588, 16853, 00408, 10104 #### [facility] [address] [place] [address], USACO2 [Moles/Vol]24 mmol/SBqouyp03-12Tea [facility]Com[facility] on above:Order Comment: This order is a replacement of the rejected order with accession [id number].Performed By: #### 99218, 75177, 73129, 06278, 81702 #### [facility] [address] [place] [address], USACreatinine [Mass/Vol]0.98 mg/dLNormal0.70-1.30The [facility] WestComment on above:Order Comment: This order is a replacement of the rejected order with accession [id number].Performed By: #### 09304, 72392, 49265, 81418, 24363 #### [facility] [address] [place] [address], USAGFR/1.73 sq M.predicted among blacks MDRD (S/P/Bld) [Vol rate/Area]mL/min/{1.73_m2}Normal>60The [facility] Comment on above:Order Comment: This order is a replacement of the rejected order with accession [id number].Performed By: #### 71729, 12506, 91446, 97020, 62209 #### [facility] [address] [place] [address], USAGFR/1.73 sq M.predicted among non-blacks MDRD (S/P/Bld) [Vol rate/Area]mL/min/{1.73_m2}Normal>60The [facility] Comment on above:Order Comment: This order is a replacement of the rejected order with accession [id number].Performed By: #### 86991, 57263, 75481, 63560, 78754 #### [facility] [address] [place] [address], USAGlucose [Mass/Vol]141 mg/lVVmbe77-562Guw [facility] WestComment on above:Order Comment: This order is a replacement of the rejected order with accession [id number].Performed By: #### 10419, 89761, 48900, 33265, 49455 #### [facility] [address] [place] [address], USAPotassium [Moles/Vol]4.2 mmol/LNormal3.5-5.1The [facility] WestComment on above:Order Comment: This order is a replacement of the rejected order with accession [id number].Performed By: #### 58035, 79898, 20638, 99160, 99715 #### [facility] [address] [place] [address], USAProtein [Mass/Vol]5.6 g/dLLow6.0-8.3The [facility] WestComment on above:Order Comment: This order is a replacement of the rejected order with accession [id number].Performed By: #### 15751, 69134, 62238, 18713, 20838 #### [facility] [address] [place] [address], USASodium [Moles/Vol]132 mmol/ZBzn606-475Mef [facility] WestComment on above:Order Comment: This order is a replacement of the rejected order with accession [id number].Performed By: #### 40853, 93321, 48975, 36354, 41402 #### [facility] [address] [place] [address], USAUrea nitrogen [Mass/Vol]32 mg/dLHigh7-25The [facility] WestComment on above:Order Comment: This order is a replacement of the rejected order with accession [id number].Performed By: #### 90784, 75645, 07404, 81084, 32614 #### [facility] [address] [place] [address], USACPKon 91-39-3577QU [Catalytic activity/Vol]47 U/LNormal -The [facility] WestComment on above:Order Comment: No: Do not add to previous drawPerformed By: #### 92121, 13193, 30560, 69461, 38814 #### [facility] [address] [place] [address], USAD DIMER TESTon 13-26-3571A-DIMER TEST2.41 mcg/mL FEUHigh 0.27-0.49The [facility] WestComment on above:Order Comment: No: Do not add to previous drawResult Comment: D-Dimer values of less than 0.50 ug/ml (FEU) are considered to be a negative predictor of thrombosis. However, the D-Dimer result should be used in conjunction with pretest probability and should not be used alone to diagnose a thrombotic event.Performed By: #### 59279 #### [facility] [address] [place] [address], USAFERRITINon 52-01-3446Mooekraf [Mass/Vol]836 ng/xBClfb96-569 The [facility] WestComment on above:Order Comment: No: Do not add to previous drawPerformed By: #### 30089, 79015, 04100, 08217, 68917 #### [facility] [address] [place] [address], USALDH BLOODon 21-57-6269UJY808 Units/LWbbd723-080Pth [facility] WestComment on above:Order Comment: No: Do not add to previous drawPerformed By: #### 72463, 23948, 33091, 17849, 38792 #### [facility] [address] [place] [address], USALIVER BATTERYon 35-08-1272Maphyvd [Mass/Vol]2.9 g/dLLow 3.5-5.7The [facility] WestComment on above:Order Comment: No: Do not add to previous drawPerformed By: #### 29057, 30418, 51049, 92703, 56214 #### [facility] [address] [facility] [place] [address], USAALKALINE XUTUQG30 IU/LIbwqmf82-684Umo [facility] WestComment on above:Order Comment: No: Do not add to previous draw Performed By: #### 06973, 07724, 41935, 07560, 99879 #### [facility] [address] [facility] [place] [address], USAALT [Catalytic activity/Vol]83 U/LHigh7-52The [facility] WestComment on above:Order Comment: No: Do not add to previous drawPerformed By: #### 77039, 56230, 70471, 39573, 78149 #### [facility] [address] [place] [address], USAAST [Catalytic activity/Vol]46 U/XOras59-38Uqd [facility] WestComment on above:Order Comment: No: Do not add to previous drawPerformed By: #### 89663, 06297, 21226, 87328, 03694 #### [facility] [address] [place] [address], USABilirubin [Mass/Vol]0.6 mg/dLNormal0.3-1.0The [facility] WestComment on above:Order Comment: No: Do not add to previous drawPerformed By: #### 31340, 19879, 67897, 49291, 00156 #### [facility] [address] [place] [address], USABilirubin.direct [Mass/Vol]0.2 mg/dLNormal0.0-0.2The [facility] WestComment on above:Order Comment: No: Do not add to previous drawPerformed By: #### 71883, 08326, 66418, 04918, 11714 #### [facility] [address] [place] [address], USAProtein [Mass/Vol]5.3 g/dLLow6.0-8.3The [facility] WestComment on above:Order Comment: No: Do not add to previous drawPerformed By: #### 59580, 05096, 53737, 24566, 33638 #### [facility] [address] [place] [address], USAOSMOLALITY BLOODon 90-36-9490Oztmqombgb [Osmolality]291 mosm/htZvlvkz732-843Kmt [facility] WestComment on above: Order Comment: No: Do not add to previous drawPerformed By: #### 57968, 54012, 45261, 98147, 29114 #### [facility] [address] [place] [address], USATACROLIMUSon 48-85-7521Xtcqkpuzay (Bld) [Mass/Vol]9.7 ng/mL Normal5.0-20.0The [facility] WestComment on above:Order Comment: Yes: Add to Previous draw if ableResult Comment: The SANDHU PORTFOLIO LEAD Tacrolimus assay is a delayed one-step immunoassay for the quantitative determination of tacrolimus in human whole blood using the chemiluminescent microparticle immunoassay (CMIA) technology with flexible assay protocols, referred to as Chemiflex.Performed By: #### 48715, 23374, 43480, 23549, 44885 #### [facility] [address] [place] [address], USATacrolimus (Bld) [Mass/Vol]5.7 ng/mLNormal5.0-20.0The [facility] WestComment on above:Order Comment: Yes: Add to Previous draw if ableResult Comment: The SANDHU PORTFOLIO LEAD Tacrolimus assay is a delayed one-step immunoassay for the quantitative determination of tacrolimus in human whole blood using the chemiluminescent microparticle immunoassay (CMIA) technology with flexible assay protocols, referred to as Chemiflex.Performed By: #### 32896, 16292, 55102, 59477, 24919 #### [facility] [address] [address], USACOMP METABOLIC PANELon 11-41-8767Srekcjf [Mass/Vol]3.2 g/dL Low3.5-5.7The [facility] WestComment on above:Order Comment: No: Do not add to previous drawPerformed By: #### 95423, 31537, 38819, 66320, 28701 #### [facility] [address] [address] [place] [address], USAALKALINE CMLKPG77 IU/DAzbftn83-863Gmv [facility] WestComment on above:Order Comment: No: Do not add to previous draw Performed By: #### 41680, 83647, 85793, 13625, 99537 #### [facility] [address] [place] [address], USAALT [Catalytic activity/Vol]69 U/LHigh7-52The [facility] WestComment on above:Order Comment: No: Do not add to previous drawPerformed By: #### 35014, 75520, 92647, 12856, 31795 #### [facility] [address] [place] [address], USAAST [Catalytic activity/Vol]54 U/LNnld38-61Gbo [facility] WestComment on above:Order Comment: No: Do not add to previous drawPerformed By: #### 13609, 43301, 23899, 63222, 57299 #### [facility] [address] [place] [address], USABilirubin [Mass/Vol]1.0 mg/dLNormal0.3-1.0The [facility] WestComment on above:Order Comment: No: Do not add to previous drawPerformed By: #### 83549, 16916, 33047, 68957, 89408 #### [facility] [address] [place] [address], USACalcium [Mass/Vol]8.8 mg/dLNormal8.6-10.3The [facility] WestComment on above:Order Comment: No: Do not add to previous drawPerformed By: #### 60704, 75657, 64821, 17034, 42816 #### [facility] [address] [place] [address], USAChloride [Moles/Vol]97 mmol/QYkj45-856Qdb [facility] WestComment on above:Order Comment: No: Do not add to previous drawPerformed By: #### 36430, 31381, 52111, 56084, 09986 #### [facility] [address] [place] [address], USACO2 [Moles/Vol]24 mmol/HHzaupa42-66Dal [facility] WestComment on above:Order Comment: No: Do not add to previous draw Performed By: #### 11010, 98911, 36778, 20341, 81529 #### [facility] [address] [place] [address], USACreatinine [Mass/Vol]0.82 mg/dLNormal0.70-1.30The [facility] WestComment on above:Order Comment: No: Do not add to previous drawPerformed By: #### 28365, 15014, 35201, 85453, 58074 #### [facility] [address] [place] [address], USAGFR/1.73 sq M.predicted among blacks MDRD (S/P/Bld) [Vol rate/Area]mL/min/{1.73_m2}Normal>60The [facility] Comment on above:Order Comment: No: Do not add to previous drawPerformed By: #### 82555, 71792, 10154, 25321, 37905 #### [facility] [address] [place] [address], USAGFR/1.73 sq M.predicted among non-blacks MDRD (S/P/Bld) [Vol rate/Area]mL/min/{1.73_m2}Normal>60The [facility] Comment on above:Order Comment: No: Do not add to previous drawPerformed By: #### 67761, 92834, 85088, 17947, 91507 #### [facility] [address] [place] [address], USAGlucose [Mass/Vol]154 mg/zFIexr23-706Gfo [facility] WestComment on above:Order Comment: No: Do not add to previous drawPerformed By: #### 21689, 12690, 10509, 14828, 83945 #### [facility] [address] [place] [address], USAPotassium [Moles/Vol]4.9 mmol/LNormal3.5-5.1The [facility] WestComment on above:Order Comment: No: Do not add to previous drawPerformed By: #### 46450, 81509, 48842, 16201, 06673 #### [facility] [address] [place] [address], USAProtein [Mass/Vol]6.1 g/dLNormal6.0-8.3The [facility] WestComment on above:Order Comment: No: Do not add to previous drawPerformed By: #### 99916, 95557, 15765, 50572, 82189 #### [facility] [address] [place] [address], USASodium [Moles/Vol]128 mmol/MGth857-399Oar [facility] WestComment on above:Order Comment: No: Do not add to previous drawPerformed By: #### 07695, 26416, 08714, 90222, 52275 #### [facility] [address] [place] [address], USAUrea nitrogen [Mass/Vol]32 mg/dLHigh7-25The [facility] WestComment on above:Order Comment: No: Do not add to previous drawPerformed By: #### 00480, 68698, 11854, 69193, 54420 #### [facility] [address] [place] [address], USAOSMOLALITY URINEon 47-48-4026LBSWECXRRI447 mOsm/kgNormal 50-1400The [facility] WestComment on above:Order Comment: No: Do not add to previous drawPerformed By: #### 83887, 40712, 75811, 16340, 37036 #### [facility] [address] [place] [address], USASODIUM URINE RANDOMon 96-96-3359Bkdvnc (U) [Moles/Vol]51 mmol/LNormalThe [facility] WestComment on above:Order Comment: No: Do not add to previous drawResult Comment: There are no established reference values for random urine specimensPerformed By: #### 41610, 71542, 87763, 99998, 41674 #### [facility] [address] [place] [address], USATACROLIMUSon 81-38-3453Euxaqggkxn (Bld) [Mass/Vol]5.2 ng/mL Normal5.0-20.0The [facility] WestComment on above:Order Comment: UnknownResult Comment: The SANDHU PORTFOLIO LEAD Tacrolimus assay is a delayed one-step immunoassay for the quantitative determination of tacrolimus in human whole blood using the chemiluminescent microparticle immunoassay (CMIA) technology with flexible assay protocols, referred to as Chemiflex.Performed By: #### 91627 ####[facility] [place] [address], [place] BASIC METABOLIC PANELon 63-57-1834Zumqpjm [Mass/Vol]8.6 mg/dLNormal8.6-10.3The [facility] WestComment on above:Order Comment: No: Do not add to previous drawPerformed By: #### 90862, 30319, 50250, 29531, 24736 #### [facility] [address] [place] [address], USAChloride [Moles/Vol]97 mmol/OFke17-634Zbx [facility] WestComment on above:Order Comment: No: Do not add to previous drawPerformed By: #### 43803, 32226, 01690, 05157, 96512 #### [facility] [address] [place] [address], USACO2 [Moles/Vol]23 mmol/PPmibpb49-27Kyd [facility] WestComment on above:Order Comment: No: Do not add to previous draw Performed By: #### 77461, 68597, 81188, 06027, 49804 #### [facility] [address] [place] [address], USACreatinine [Mass/Vol]0.82 mg/dLNormal0.70-1.30The [facility] WestComment on above:Order Comment: No: Do not add to previous drawPerformed By: #### 10669, 37386, 09995, 12694, 69326 #### [facility] [address] [place] [address], USAGFR/1.73 sq M.predicted among blacks MDRD (S/P/Bld) [Vol rate/Area]mL/min/{1.73_m2}Normal>60The [facility] Comment on above:Order Comment: No: Do not add to previous drawPerformed By: #### 91723, 31899, 28485, 20523, 59834 #### [facility] [address] [place] [address], USAGFR/1.73 sq M.predicted among non-blacks MDRD (S/P/Bld) [Vol rate/Area]mL/min/{1.73_m2}Normal>60The [facility] Comment on above:Order Comment: No: Do not add to previous drawPerformed By: #### 46002, 06330, 66417, 93417, 10601 #### [facility] [address] [place] [address], USAGlucose [Mass/Vol]166 mg/bVGnrz69-639Mhd [facility] WestComment on above:Order Comment: No: Do not add to previous drawPerformed By: #### 91932, 64416, 90897, 54541, 46234 #### [facility] [address] [place] [address], USAPotassium [Moles/Vol]4.9 mmol/LNormal3.5-5.1The [facility] WestComment on above:Order Comment: No: Do not add to previous drawPerformed By: #### 79461, 31930, 58895, 68212, 82069 #### [facility] [address] [place] [address], USASodium [Moles/Vol]127 mmol/JMpp986-359Jxv [facility] WestComment on above:Order Comment: No: Do not add to previous drawPerformed By: #### 20049, 14439, 57243, 46844, 95567 #### [facility] [address] [place] [address], USAUrea nitrogen [Mass/Vol]33 mg/dLHigh7-25The [facility] WestComment on above:Order Comment: No: Do not add to previous drawPerformed By: #### 48252, 11086, 10245, 44775, 50758 #### [facility] [address] [place] [address], USACREATININE URINE RANDOMon 66-03-8668Ggckxfnjuo (U) [Mass/Vol]59.0 mg/dLNoSt. Mary's Medical [place], [place] [facility] - WestComment on above:Order Comment: Yes: Add to Previous draw if ableResult Comment: There are no established reference values for random urine specimensPerformed By: #### 19337, 88069, 07869, 13159, 69177 #### [facility] [address] [place] [address], USAMAGNESIUM BLOODon 11-17-6529Vosqpljog [Mass/Vol]1.7 mg/dL Low1.9-2.7The [facility] - WestComment on above:Order Comment: No: Do not add to previous drawPerformed By: #### 12016, 93546, 72976, 11517, 35725 #### [facility] [address] [place] [address], USASODIUM URINE RANDOMon [id number] (U) [Moles/Vol]90 mmol/LNormalThe [facility] - WestComment on above:Order Comment: Yes: Add to Previous draw if ableResult Comment: There are no established reference values for random urine specimensPerformed By: #### 95513, 31076, 22151, 09851, 58999 #### [facility] [address] [place] [address], USATACROLIMUSon 15-10-1729Alxsvporgh (Bld) [Mass/Vol]6.3 ng/mL Normal5.0-20.0The [facility] - WestComment on above:Order Comment: Yes: Add to Previous draw if ableResult Comment: The SANDHU PORTFOLIO LEAD Tacrolimus assay is a delayed one-step immunoassay for the quantitative determination of tacrolimus in human whole blood using the chemiluminescent microparticle immunoassay (CMIA) technology with flexible assay protocols, referred to as Chemiflex.Performed By: #### 40686, 96396, 25380, 28310, 54788 #### [facility] [address] [place] [address], USABASIC METABOLIC PANELon 78-64-5044Jeyogtv [Mass/Vol]8.3 mg/dLLow8.6-10.3The [facility] - WestComment on above:Order Comment: Yes: Add to Previous draw if ablePerformed By: #### 74615, 65639, 28057, 61423, 05914 #### [facility] [address] [place] [address], USAChloride [Moles/Vol]102 mmol/CCxppfv15-897Kll [facility] - WestComment on above:Order Comment: Yes: Add to Previous draw if ablePerformed By: #### 02261, 76989, 26097, 95931, 12843 #### [facility] [address] [place] [address], USACO2 [Moles/Vol]20 mmol/FMoz98-42Gkb [facility] - WestComment on above:Order Comment: Yes: Add to Previous draw if able Performed By: #### 14245, 51200, 28666, 08561, 71124 #### [facility] [address] [place] [address], USACreatinine [Mass/Vol]0.78 mg/dLNormal0.70-1.30The [facility] - WestComment on above:Order Comment: Yes: Add to Previous draw if ablePerformed By: #### 31791, 05730, 17955, 43776, 24884 #### [facility] [address] [place] [address], USAGFR/1.73 sq M.predicted among blacks MDRD (S/P/Bld) [Vol rate/Area]mL/min/{1.73_m2}Normal>60The [facility] Comment on above:Order Comment: Yes: Add to Previous draw if ablePerformed By: #### 96540, 12097, 83372, 37336, 16858 #### [facility] [address] [place] [address], USAGFR/1.73 sq M.predicted among non-blacks MDRD (S/P/Bld) [Vol rate/Area]mL/min/{1.73_m2}Normal>60The [facility] Comment on above:Order Comment: Yes: Add to Previous draw if ablePerformed By: #### 73907, 25041, 21448, 53936, 64061 #### [facility] [address] [place] [address], USAGlucose [Mass/Vol]199 mg/fCRcqv31-125Cst [facility] - WestComment on above:Order Comment: Yes: Add to Previous draw if ablePerformed By: #### 33058, 96529, 42802, 11861, 54515 #### [facility] [address] [place] [address], USAPotassium [Moles/Vol]4.9 mmol/LNormal3.5-5.1The [facility] - WestComment on above:Order Comment: Yes: Add to Previous draw if ablePerformed By: #### 99938, 96276, 03343, 09188, 61434 #### [facility] [address] [place] [address], USASodium [Moles/Vol]129 mmol/YWir008-861Ktj [facility] - WestComment on above:Order Comment: Yes: Add to Previous draw if ablePerformed By: #### 46080, 68926, 46971, 92467, 09518 #### [facility] [address] [place] [address], USAUrea nitrogen [Mass/Vol]33 mg/dLHigh7-25The [facility] - WestComment on above:Order Comment: Yes: Add to Previous draw if ablePerformed By: #### 50393, 83373, 29622, 93395, 26800 #### [facility] [address] [place] [address], USACBC COMPLETE BLOOD COUNTon 02-07-8039Utgasobdfka distribution width (RBC) [Ratio]12.9 %Fkfhio16.5-15.0The [facility] - WestComment on above:Order Comment: No: Do not add to previous draw Performed By: #### 22562 #### [facility] [address] [place] [address], USAHematocrit (Bld) [Volume fraction]45.9 %Ecpfaf14.0-50.0The [facility] - WestComment on above:Order Comment: No: Do not add to previous drawPerformed By: #### 06270 #### [facility] [address] [place] [address], USAHemoglobin (Bld) [Mass/Vol]15.3 g/rECvqmrt65.0-17.0The [facility] WestComment on above:Order Comment: No: Do not add to previous drawPerformed By: #### 25630 #### [facility] [address] [place] [address], [facility] (RBC) [Entitic mass]29.3 xhRqajwk25.0-33.0The [facility] WestComment on above:Order Comment: No: Do not add to previous drawPerformed By: #### 98489 #### [facility] [address] [place] [address], [facility]ITALMCHC (RBC) [Mass/Vol]33.3 g/aICldmjs18.0-35.0The [facility] WestComment on above:Order Comment: No: Do not add to previous drawPerformed By: #### 26094 #### [facility] [address] [place] [address], USAMCV (RBC) [Entitic vol]87.8 lAAhmrck54.0-98.0The [facility] WestComment on above:Order Comment: No: Do not add to previous drawPerformed By: #### 89675 #### [facility] [address] [place] [address], USANucleated RBC/100 WBC (Bld) [Ratio]0 %Normal0-0The [facility] WestComment on above:Order Comment: No: Do not add to previous drawPerformed By: #### 45881 #### [facility] [address] [place] [address], USAPLAT ZTC918 10*3/iLEiwe178-975Ysy [facility] WestComment on above:Order Comment: No: Do not add to previous draw Performed By: #### 88310 #### [facility] [address] [place] [address], USARBC (Bld) [#/Vol]5.23 10*6/uLNormal4.20-5.70The [facility] WestComment on above:Order Comment: No: Do not add to previous drawPerformed By: #### 56805 #### [facility] [address] [place] [address], USAWBC (Bld) [#/Vol]7.77 10*3/uLNormal4.00-10.60The [facility] WestComment on above:Order Comment: No: Do not add to previous drawPerformed By: #### 58692 #### [facility] [address] [place] [address], USAMAGNESIUM BLOODon 74-35-7485Gtosuzgtr [Mass/Vol]1.7 mg/dL Low1.9-2.7The [facility] WestComment on above:Order Comment: Yes: Add to Previous draw if ablePerformed By: #### 15499, 42755, 85112, 42528, 63551 #### [address] [place] [address], USAPORTABLE CHEST 1 VIEWon 57-94-6028AKZLVFJS CHEST 1 VIEW [facility] Department of Radiology [address] [place] [id number] Patient Name: VISHAL DUKE : 1960 Sex: M Age: Race: White Pt. Location: [id number] Patient Status: I Ordered Date: 08/10/2020 7:40:00 [...] pneumothorax. Electronically signed: Brett Mc. Transcribed by: [id number], User Resident: Electronically Signed by: BRETT MC @ 08/10/2020 10:10 AMNormalThe [facility] - WestComment on above:Order Comment: No: Do not add to previous draw CV'D BY IMM LAB AT 1240TACROLIMUSon 30-61-1076Eqrnqzvmql (Bld) [Mass/Vol]11.2 ng/mLNormal5.0-20.0The [facility] WestComment on above:Order Comment: No: Do not add to previous drawResult Comment: The SANDHU PORTFOLIO LEAD Tacrolimus assay is a delayed one-step immunoassay for the quantitative determination of tacrolimus in human whole blood using the chemiluminescent microparticle immunoassay (CMIA) technology with flexible assay protocols, referred to as Chemiflex.Performed By: #### 48180, 55208, 80368, 77566, 55264 #### [facility] [address] [facility] [place] [address], USATACROLIMUSon 20-94-2439Ajpyoqjyhc (Bld) [Mass/Vol]11.0 ng/mLNormal5.0-20.0The [facility] WestComment on above:Order Comment: Yes: Add to Previous draw if ableResult Comment: The SANDHU PORTFOLIO LEAD Tacrolimus assay is a delayed one-step immunoassay for the quantitative determination of tacrolimus in human whole blood using the chemiluminescent microparticle immunoassay (CMIA) technology with flexible assay protocols, referred to as Chemiflex.Performed By: #### 61663, 90256, 76120, 19023, 62394 #### [facility] [address] [facility] [place] [place] [address], USATROPONIN-Ion 93-78-4306Cawvtyiz I.cardiac [Mass/Vol]5.31 ng/mLCritically high0.00-0.04The [facility] WestComment on above:Order Comment: Yes: Add to Previous draw if ableResult Comment: M-PREVIOUS CRITICAL RESULT REFERENCE RANGES: 0.00 - 0.04 ng/ml NORMAL 0.05 - 0.50 ng/ml INDETERMINATE > 0.50 ng/ml CONSISTENT WITH AN M.I.Performed By: #### 46128, 55500, 27772, 55356, 98243 #### [facility] [address] [place] [address], USAUFH HEPARIN ASSAYon 06-26-7575JBJFLSCWKMWRHC HEPARIN<0.10 Critically low0.30-0.70The [facility] - WestComment on above: Result Comment: Rivaroxaban and Apixaban will interfere with the anti Xa assay used to monitor UFH and LMWH. Results called. Accurately read back by Luiz Shaffer RN at 0709Performed By: #### 26817 ####[facility] [place] [address], USACOMP METABOLIC PANELon 04-63-2930Vmpmumh [Mass/Vol]2.8 g/dLLow3.5-5.7The [facility] WestComment on above:Order Comment: Yes: Add to Previous draw if ablePerformed By: #### 31095, 71542, 90683, 68932, 03136 #### [facility] [address] [place] [address], USAALKALINE UEYLSR39 IU/HKgudcv37-197Tyq [facility] WestComment on above:Order Comment: Yes: Add to Previous draw if able Performed By: #### 06861, 99656, 67949, 09271, 40572 #### [facility] [address] [place] [address], USAALT [Catalytic activity/Vol]30 U/LNormal7-52The [facility] WestComment on above:Order Comment: Yes: Add to Previous draw if ablePerformed By: #### 92277, 12700, 42395, 46393, 25153 #### [facility] [address] [place] [address], USAAST [Catalytic activity/Vol]48 U/AAdpy87-79Jdu [facility] WestComment on above:Order Comment: Yes: Add to Previous draw if ablePerformed By: #### 00025, 79947, 24530, 39833, 95090 #### [facility] [address] [place] [address], USABilirubin [Mass/Vol]0.9 mg/dLNormal0.3-1.0The [facility] WestComment on above:Order Comment: Yes: Add to Previous draw if ablePerformed By: #### 04302, 88395, 65453, 47086, 63582 #### [facility] [address] [place] [address], USACalcium [Mass/Vol]8.1 mg/dLLow8.6-10.3The [facility] WestComment on above:Order Comment: Yes: Add to Previous draw if ablePerformed By: #### 30996, 12429, 75018, 21483, 52114 #### [facility] [address] [place] [address], USAChloride [Moles/Vol]104 mmol/VBrtjss65-662Fja [facility] WestComment on above:Order Comment: Yes: Add to Previous draw if ablePerformed By: #### 10331, 60969, 69887, 85011, 19871 #### [facility] [address] [place] [address], USACO2 [Moles/Vol]19 mmol/IPqx99-52Dek [facility] WestComment on above:Order Comment: Yes: Add to Previous draw if able Performed By: #### 17040, 24015, 11960, 51525, 61580 #### [facility] [address] [place] [address], USACreatinine [Mass/Vol]0.92 mg/dLNormal0.70-1.30The [facility] WestComment on above:Order Comment: Yes: Add to Previous draw if ablePerformed By: #### 33959, 22609, 30276, 92801, 53043 #### [facility] [address] [place] [address], USAGFR/1.73 sq M.predicted among blacks MDRD (S/P/Bld) [Vol rate/Area]mL/min/{1.73_m2}Normal>60The [facility] Comment on above:Order Comment: Yes: Add to Previous draw if ablePerformed By: #### 73199, 91077, 39116, 93890, 16708 #### [facility] [address] [place] [address], USAGFR/1.73 sq M.predicted among non-blacks MDRD (S/P/Bld) [Vol rate/Area]mL/min/{1.73_m2}Normal>60The [facility] Comment on above:Order Comment: Yes: Add to Previous draw if ablePerformed By: #### 15486, 25385, 11181, 36723, 40278 #### [facility] [address] [place] [address], USAGlucose [Mass/Vol]159 mg/bTVooy85-655Psc [facility] WestComment on above:Order Comment: Yes: Add to Previous draw if ablePerformed By: #### 50514, 91542, 33748, 31936, 95296 #### [facility] [address] [place] [address], USAPotassium [Moles/Vol]5.2 mmol/LHigh3.5-5.1The [facility] WestComment on above:Order Comment: Yes: Add to Previous draw if ablePerformed By: #### 95673, 23845, 32683, 50323, 15299 #### [facility] [address] [place] [address], USAProtein [Mass/Vol]5.5 g/dLLow6.0-8.3The [facility] WestComment on above:Order Comment: Yes: Add to Previous draw if ablePerformed By: #### 20108, 20826, 00978, 56871, 13515 #### [facility] [address] [place] [address], USASodium [Moles/Vol]133 mmol/OQrj592-340Cxs [facility] WestComment on above:Order Comment: Yes: Add to Previous draw if ablePerformed By: #### 43400, 15796, 97956, 08465, 24856 #### [facility] [address] [place] [address], USAUrea nitrogen [Mass/Vol]35 mg/dLHigh7-25The [facility] WestComment on above:Order Comment: Yes: Add to Previous draw if ablePerformed By: #### 84789, 07337, 15350, 64617, 62440 #### [facility] [address] [place] [address], USATACROLIMUSon 47-07-0498Rkjhwmskvy (Bld) [Mass/Vol]7.8 ng/mL Normal5.0-20.0The [facility] - WestComment on above:Order Comment: UnknownResult Comment: The SANDHU PORTFOLIO LEAD Tacrolimus assay is a delayed one-step immunoassay for the quantitative determination of tacrolimus in human whole blood using the chemiluminescent microparticle immunoassay (CMIA) technology with flexible assay protocols, referred to as Chemiflex.Performed By: #### 74717, 82163, 47048, 43506, 82738 #### [facility] [address] [place] [address], USAUFH HEPARIN ASSAYon 27-17-6919PJEHTNBHONLZKX HEPARIN0.74 IU/mLHigh0.30-0.70The [facility] - WestComment on above:Result Comment: Rivaroxaban and Apixaban will interfere with the anti Xa assay used to monitor UFH and LMWH.Performed By: #### 09873 ####[facility] [place] [address], USAC REACTIVE PROTEINon 05-13-5431PAG [Mass/Vol]75.8 mg/LHigh0.0-7.0The [facility] - WestComment on above:Order Comment: No: Do not add to previous draw CV'D BY IMM LAB AT 1240Performed By: #### 09013 #### [facility] [address] [place] [address], USASEDIMENTATION RATEon 48-80-9758RJH RATE30 mm/hrHigh0-10The [facility] WestComment on above:Order Comment: No: Do not add to previous drawPerformed By: #### 34006 #### [facility] [address] [facility] [place] [address], USATACROLIMUSon 36-36-4988Kzbfoqumup (Bld) [Mass/Vol]9.1 ng/mL Normal5.0-20.0The [facility] WestComment on above:Order Comment: UnknownResult Comment: The SANDHU PORTFOLIO LEAD Tacrolimus assay is a delayed one-step immunoassay for the quantitative determination of tacrolimus in human whole blood using the chemiluminescent microparticle immunoassay (CMIA) technology with flexible assay protocols, referred to as Chemiflex.Performed By: #### 32150 #### [facility] [address] [facility] [place] [address], USATROPONIN-Ion 00-47-7124Iorkumcb I.cardiac [Mass/Vol]7.37 ng/mLCritically high0.00-0.04The [facility] WestComment on above:Order Comment: Yes: Add to Previous draw if ableResult Comment: M-PREVIOUS CRITICAL RESULT 42.94 REFERENCE RANGES: 0.00 - 0.04 ng/ml NORMAL 0.05 - 0.50 ng/ml INDETERMINATE > 0.50 ng/ml CONSISTENT WITH AN M.I.Performed By: #### 44923, 50093, 31550, 08911, 25062 #### [facility] [address] [facility] [place] [address], USAUFH HEPARIN ASSAYon 03-54-3185CNXODQKPATUBOP HEPARIN0.48 IU/mLNormal0.30-0.70The [facility] WestComment on above: Result Comment: Rivaroxaban and Apixaban will interfere with the anti Xa assay used to monitor UFH and LMWH.Performed By: #### 47843 ####[facility] [place] [address], [facility] HOSPITALCBC COMPLETE BLOOD COUNTon 21-49-9674Osuzfdijkhb distribution width (RBC) [Ratio]13.2 %Hrurew67.5-15.0The [facility] - WestComment on above:Order Comment: Yes: Add to Previous draw if ablePerformed By: #### 81285, 30656, 98378, 54198, 37939 #### [facility] [address] [place] [address], USAHematocrit (Bld) [Volume fraction]44.8 %Vmklkn75.0-50.0The [facility] WestComment on above:Order Comment: Yes: Add to Previous draw if ablePerformed By: #### 92823, 49546, 99825, 36052, 33600 #### [facility] [address] [place] [address], USAHemoglobin (Bld) [Mass/Vol]14.8 g/aJKccvji50.0-17.0The [facility] WestComment on above:Order Comment: Yes: Add to Previous draw if ablePerformed By: #### 45149, 80106, 34172, 76880, 35626 #### [facility] [address] [place] [address], [facility] HOSPITALMCH (RBC) [Entitic mass]29.0 hrShxmzk31.0-33.0The [facility] - WestComment on above:Order Comment: Yes: Add to Previous draw if ablePerformed By: #### 62894, 19037, 72919, 54053, 78416 #### [facility] [address] [place] [address], USAMCHC (RBC) [Mass/Vol]33.0 g/cUVwbsdz18.0-35.0The [facility] WestComment on above:Order Comment: Yes: Add to Previous draw if ablePerformed By: #### 59000, 03615, 84902, 68299, 88926 #### [facility] [address] [place] [address], USAMCV (RBC) [Entitic vol]87.8 wECyqiqf38.0-98.0The [facility] WestComment on above:Order Comment: Yes: Add to Previous draw if ablePerformed By: #### 52052, 66267, 71083, 44489, 92195 #### [facility] [address] [place] [address], USANucleated RBC/100 WBC (Bld) [Ratio]0 %Normal0-0The [facility] - WestComment on above:Order Comment: Yes: Add to Previous draw if ablePerformed By: #### 05424, 27590, 75888, 65392, 75335 #### [facility] [address] [place] [address], USAPLAT JOE241 10*3/oDZagdtk760-716Cxi [facility] WestComment on above:Order Comment: Yes: Add to Previous draw if able Performed By: #### 63395, 36183, 92008, 01539, 26240 #### [facility] [address] [place] [address], USARBC (Bld) [#/Vol]5.10 10*6/uLNormal4.20-5.70The [facility] - WestComment on above:Order Comment: Yes: Add to Previous draw if ablePerformed By: #### 56623, 60500, 00770, 52389, 79884 #### [facility] [address] [place] [address], USAWBC (Bld) [#/Vol]3.94 10*3/uLLow4.00-10.60The [facility] - WestComment on above:Order Comment: Yes: Add to Previous draw if ablePerformed By: #### 08842, 98444, 32670, 81156, 81682 #### [facility] [address] [place] [address], USACOMP METABOLIC PANELon 41-47-5758Gfxwmip [Mass/Vol]3.0 g/dL Low3.5-5.7The [facility] - WestComment on above:Order Comment: No: Do not add to previous drawLABS DRAWN IN SAME HAND PAUSED IV. PT IS TO REMAINFACE DOWN ONSTOMACH PER RN SO THAT IS THE ONLY PLACE WE CAN DRAW FROM RIGHT NOW.Performed By: #### 50490, 05658, 90762, 66614, 88128 #### [facility] [address] [place] [address], USAALKALINE [id number] IU/QWlpkuv93-189Vsb [facility] - WestComment on above:Order Comment: No: Do not add to previous drawLABS DRAWN IN SAME HAND PAUSED IV. PT IS TO REMAINFACE DOWN ONSTOMACH PER RN SO THAT IS THE ONLY PLACE WE CAN DRAW FROM RIGHT NOW.Performed By: #### 22151, 30813, 37520, 63697, 64497 #### [facility] [address] [place] [address], USAALT [Catalytic activity/Vol]42 U/LNormal7-52The [facility] - WestComment on above:Order Comment: No: Do not add to previous drawLABS DRAWN IN SAME HAND PAUSED IV. PT IS TO REMAINFACE DOWN ONSTOMACH PER RN SO THAT IS THE ONLY PLACE WE CAN DRAW FROM RIGHT NOW.Performed By: #### 08853, 53642, 99067, 78951, 36582 #### [facility] [address] [place] [address], USAAST [Catalytic activity/Vol]112 U/LAggm13-08Vna [facility] - WestComment on above:Order Comment: No: Do not add to previous drawLABS DRAWN IN SAME HAND PAUSED IV. PT IS TO REMAINFACE DOWN ONSTOMACH PER RN SO THAT IS THE ONLY PLACE WE CAN DRAW FROM RIGHT NOW.Performed By: #### 32668, 95330, 89587, 02500, 63773 #### [facility] [address] [place] [address], USABilirubin [Mass/Vol]1.4 mg/dLHigh0.3-1.0The [facility] WestComment on above:Order Comment: No: Do not add to previous drawLABS DRAWN IN SAME HAND PAUSED IV. PT IS TO REMAINFACE DOWN ONSTOMACH PER RN SO THAT IS THE ONLY PLACE WE CAN DRAW FROM RIGHT NOW.Performed By: #### 61097, 87027, 51528, 74554, 71968 #### [facility] [address] [place] [address], USACalcium [Mass/Vol]8.3 mg/dLLow8.6-10.3The [facility] - WestComment on above:Order Comment: No: Do not add to previous drawLABS DRAWN IN SAME HAND PAUSED IV. PT IS TO REMAINFACE DOWN ONSTOMACH PER RN SO THAT IS THE ONLY PLACE WE CAN DRAW FROM RIGHT NOW.Performed By: #### 59787, 66752, 17597, 96641, 84556 #### [facility] [address] [place] [address], USAChloride [Moles/Vol]105 mmol/XJbyzjm58-917Tym [facility] WestComment on above:Order Comment: No: Do not add to previous drawLABS DRAWN IN SAME HAND PAUSED IV. PT IS TO REMAINFACE DOWN ONSTOMACH PER RN SO THAT IS THE ONLY PLACE WE CAN DRAW FROM RIGHT NOW.Performed By: #### 43634, 36915, 06848, 96495, 91670 #### [facility] [address] [place] [address], USACO2 [Moles/Vol]20 mmol/LFfi17-29Kpy [facility] - WestComment on above:Order Comment: No: Do not add to previous drawLABS DRAWN IN SAME HAND PAUSED IV. PT IS TO REMAINFACE DOWN ONSTOMACH PER RN SO THAT IS THE ONLY PLACE WE CAN DRAW FROM RIGHT NOW.Performed By: #### 86987, 55688, 89590, 82023, 86268 #### [facility] [address] [place] [address], USACreatinine [Mass/Vol]0.91 mg/dLNormal0.70-1.30The [facility] - WestComment on above:Order Comment: No: Do not add to previous drawLABS DRAWN IN SAME HAND PAUSED IV. PT IS TO REMAINFACE DOWN ONSTOMACH PER RN SO THAT IS THE ONLY PLACE WE CAN DRAW FROM RIGHT NOW. Performed By: #### 34295, 67673, 53066, 89045, 08118 #### [facility] [address] [facility] [place] [address], USAGFR/1.73 sq M.predicted among blacks MDRD (S/P/Bld) [Vol rate/Area]mL/min/{1.73_m2}Normal>60The [facility] Comment on above:Order Comment: No: Do not add to previous drawLABS DRAWN IN SAME HAND PAUSED IV. PT IS TO REMAINFACE DOWN ONSTOMACH PER RN SO THAT IS THE ONLY PLACE WE CAN DRAW FROM RIGHT NOW.Performed By: #### 91686, 92146, 59889, 31404, 54715 #### [facility] [address] [facility] [place] [address], USAGFR/1.73 sq M.predicted among non-blacks MDRD (S/P/Bld) [Vol rate/Area]mL/min/{1.73_m2}Normal>60The [facility] Comment on above:Order Comment: No: Do not add to previous drawLABS DRAWN IN SAME HAND PAUSED IV. PT IS TO REMAINFACE DOWN ONSTOMACH PER RN SO THAT IS THE ONLY PLACE WE CAN DRAW FROM RIGHT NOW.Performed By: #### 10050, 77364, 36174, 03248, 16843 #### [facility] [address] [place] [address], USAGlucose [Mass/Vol]153 mg/pMWlbx76-944Lae [facility] WestComment on above:Order Comment: No: Do not add to previous drawLABS DRAWN IN SAME HAND PAUSED IV. PT IS TO REMAINFACE DOWN ONSTOMACH PER RN SO THAT IS THE ONLY PLACE WE CAN DRAW FROM RIGHT NOW.Performed By: #### 45766, 07383, 93602, 73902, 31692 #### [facility] [address] [place] [address], USAPotassium [Moles/Vol]4.7 mmol/LNormal3.5-5.1The [facility] WestComment on above:Order Comment: No: Do not add to previous drawLABS DRAWN IN SAME HAND PAUSED IV. PT IS TO REMAINFACE DOWN ONSTOMACH PER RN SO THAT IS THE ONLY PLACE WE CAN DRAW FROM RIGHT NOW.Performed By: #### 35647, 62547, 89297, 78694, 41455 #### [facility] [address] [place] [address], USAProtein [Mass/Vol]5.8 g/dLLow6.0-8.3The [facility] WestComment on above:Order Comment: No: Do not add to previous drawLABS DRAWN IN SAME HAND PAUSED IV. PT IS TO REMAINFACE DOWN ONSTOMACH PER RN SO THAT IS THE ONLY PLACE WE CAN DRAW FROM RIGHT NOW.Performed By: #### 72276, 40288, 39758, 23351, 90356 #### [facility] [address] [place] [address], USASodium [Moles/Vol]136 mmol/AIcynka137-239Slw [facility] WestComment on above:Order Comment: No: Do not add to previous drawLABS DRAWN IN SAME HAND PAUSED IV. PT IS TO REMAINFACE DOWN ONSTOMACH PER RN SO THAT IS THE ONLY PLACE WE CAN DRAW FROM RIGHT NOW.Performed By: #### 90493, 24464, 81338, 73896, 65180 #### [facility] [address] [place] [address], USAUrea nitrogen [Mass/Vol]28 mg/dLHigh7-25The [facility] WestComment on above:Order Comment: No: Do not add to previous drawLABS DRAWN IN SAME HAND PAUSED IV. PT IS TO REMAINFACE DOWN ONSTOMACH PER RN SO THAT IS THE ONLY PLACE WE CAN DRAW FROM RIGHT NOW.Performed By: #### 42170, 38141, 43935, 75413, 18767 #### [facility] [address] [place] [address], USATACROLIMUSon [id number] (Bld) [Mass/Vol]9.2 ng/mL Normal5.0-20.0The [facility] - WestComment on above:Order Comment: UnknownLABS DRAWN IN SAME HAND PAUSED IV. PT IS TO REMAIN FACE DOWN ONSTOMACH PERRN SO THAT IS THE ONLY PLACE WE CAN DRAW FROM RIGHT NOW.Result Comment: The SANDHU PORTFOLIO LEAD Tacrolimus assay is a delayed one-step immunoassay for the quantitative determination of tacrolimus in human whole blood using the chemiluminescent microparticle immunoassay (CMIA) technology with flexible assay protocols, referred to as Chemiflex.Performed By: #### 61657, 09208, 29947, 70027, 66167 #### [facility] [address] [place] [address], USATROPONIN-Ion [id number] I.cardiac [Mass/Vol]42.94 ng/mLCritically high0.00-0.04The [facility] WestComment on above:Result Comment: M-PREVIOUS CRITICAL RESULT REFERENCE RANGES: 0.00 - 0.04 ng/ml NORMAL 0.05 - 0.50 ng/ml INDETERMINATE > 0.50 ng/ml CONSISTENT WITH AN M.I.Performed By: #### 83459, 07450, 60189, 56945, 39936 #### [facility] [address] [place] [address], USATroponin I.cardiac [Mass/Vol]46.69 ng/mLCritically high 0.00-0.04The [facility] WestComment on above:Order Comment: No: Do not add to previous drawResult Comment: M-PREVIOUS CRITICAL RESULT REFERENCE RANGES: 0.00 - 0.04 ng/ml NORMAL 0.05 - 0.50 ng/ml INDETERMINATE > 0.50 ng/ml CONSISTENT WITH AN M.I.Performed By: #### 41877 ####[facility] [facility] [place] [address], USAUFH HEPARIN ASSAYon [id number] HEPARIN0.34 IU/mLNormal0.30-0.70The [facility] - WestComment on above:Order Comment: No: Do not add to previous drawResult Comment: Rivaroxaban and Apixaban will interfere with the anti Xa assay used to monitor UFH and LMWH.Performed By: #### 42077 #### [facility] [address] [facility] [place] [address], USACHLORIDE URon [id number] [Moles/Vol]26.0 mmol/L NormalThe [facility] - WestComment on above:Order Comment: Yes: Add to Previous draw if ableResult Comment: There are no established reference values for random urine specimensPerformed By: #### 34843, 80666, 82929, 30864, 79111 #### [facility] [address] [facility] [place] [address], USACOMP METABOLIC PANELon [id number] [Mass/Vol]3.0 g/dL Low3.5-5.7The [facility] WestComment on above:Order Comment: Yes: Add to Previous draw if ablePerformed By: #### 00159, 83183, 64619, 56245, 33250 #### [facility] [address] [facility] [place] [address], USAALKALINE AQXWDQ91 IU/VIgnvnq20-935Iom [facility] WestComment on above:Order Comment: Yes: Add to Previous draw if able Performed By: #### 08139, 01325, 64650, 36133, 82357 #### [facility] [address] [place] [address], USAALT [Catalytic activity/Vol]35 U/LNormal7-52The [facility] WestComment on above:Order Comment: Yes: Add to Previous draw if ablePerformed By: #### 14932, 30798, 06585, 10270, 85062 #### [facility] [address] [place] [address], USAAST [Catalytic activity/Vol]54 U/KKsfa37-41Jhg [facility] WestComment on above:Order Comment: Yes: Add to Previous draw if ablePerformed By: #### 43301, 34910, 86118, 46132, 14783 #### [facility] [address] [place] [address], USABilirubin [Mass/Vol]1.0 mg/dLNormal0.3-1.0The [facility] WestComment on above:Order Comment: Yes: Add to Previous draw if ablePerformed By: #### 91867, 91018, 32641, 29346, 13685 #### [facility] [address] [place] [address], USACalcium [Mass/Vol]8.2 mg/dLLow8.6-10.3The [facility] WestComment on above:Order Comment: Yes: Add to Previous draw if ablePerformed By: #### 35977, 65141, 32205, 07735, 43130 #### [facility] [address] [place] [address], USAChloride [Moles/Vol]105 mmol/ZDmtvdj57-297Uzs [facility] WestComment on above:Order Comment: Yes: Add to Previous draw if ablePerformed By: #### 17677, 75938, 89188, 78161, 15768 #### [facility] [address] [place] [address], USACO2 [Moles/Vol]19 mmol/PQlf14-90Nsi [facility] WestComment on above:Order Comment: Yes: Add to Previous draw if able Performed By: #### 63819, 63584, 59409, 33266, 87172 #### [facility] [address] [place] [address], USACreatinine [Mass/Vol]0.89 mg/dLNormal0.70-1.30The [facility] WestComment on above:Order Comment: Yes: Add to Previous draw if ablePerformed By: #### 90088, 48592, 98141, 20164, 06382 #### [facility] [address] [place] [address], USAGFR/1.73 sq M.predicted among blacks MDRD (S/P/Bld) [Vol rate/Area]mL/min/{1.73_m2}Normal>60The [facility] Comment on above:Order Comment: Yes: Add to Previous draw if ablePerformed By: #### 53598, 62905, 49630, 08192, 32909 #### [facility] [address] [place] [address], USAGFR/1.73 sq M.predicted among non-blacks MDRD (S/P/Bld) [Vol rate/Area]mL/min/{1.73_m2}Normal>60The [facility] Comment on above:Order Comment: Yes: Add to Previous draw if ablePerformed By: #### 66775, 94244, 30258, 74495, 95242 #### [facility] [address] [place] [address], USAGlucose [Mass/Vol]174 mg/uLLaty14-516Dhy [facility] WestComment on above:Order Comment: Yes: Add to Previous draw if ablePerformed By: #### 89779, 83968, 61873, 36404, 76904 #### [facility] [address] [place] [address], USAPotassium [Moles/Vol]4.9 mmol/LNormal3.5-5.1The [facility] WestComment on above:Order Comment: Yes: Add to Previous draw if ablePerformed By: #### 06825, 38564, 70872, 61813, 07042 #### [facility] [address] [place] [address], USAProtein [Mass/Vol]5.5 g/dLLow6.0-8.3The [facility] WestComment on above:Order Comment: Yes: Add to Previous draw if ablePerformed By: #### 45389, 88716, 93306, 01837, 44524 #### [facility] [address] [facility] [place] [address], USASodium [Moles/Vol]136 mmol/NVakkit079-905Max [facility] WestComment on above:Order Comment: Yes: Add to Previous draw if ablePerformed By: #### 19868, 51115, 50301, 43545, 54224 #### [facility] [address] [place] [address], USAUrea nitrogen [Mass/Vol]35 mg/dLHigh7-25The [facility] WestComment on above:Order Comment: Yes: Add to Previous draw if ablePerformed By: #### 72522, 19888, 83775, 74205, 11768 #### [facility] [address] [facility] [place] [address], USALIVER BATTERYon 17-12-8275Yetidyx [Mass/Vol]3.2 g/dLLow 3.5-5.7The [facility] - WestComment on above:Performed By: #### 03759, 72697, 83217, 13790, 54780 #### [facility] [address] [place] [address], USAALKALINE WZSEOZ48 IU/SJeqhny89-319Inr [facility] WestComment on above:Performed By: #### 14463, 52121, 79998, 65689, 19490 #### [facility] [address] [place] [address], USAALT [Catalytic activity/Vol]40 U/LNormal7-52The [facility] WestComment on above:Performed By: #### 59284, 24093, 92489, 15675, 94249 #### [facility] [address] [place] [address], USAAST [Catalytic activity/Vol]36 U/IFshywe14-39Jqm [facility] WestComment on above:Performed By: #### 56518, 68982, 52796, 96922, 02476 #### [facility] [address] [place] [address], USABilirubin [Mass/Vol]0.9 mg/dLNormal0.3-1.0The [facility] WestComment on above:Performed By: #### 43623, 65175, 32467, 57634, 88081 #### [facility] [address] [place] [address], USABilirubin.direct [Mass/Vol]0.3 mg/dLHigh0.0-0.2The [facility] WestComment on above:Performed By: #### 11626, 48555, 25441, 64606, 72710 #### [facility] [address] [place] [address], USAProtein [Mass/Vol]5.9 g/dLLow6.0-8.3The [facility] WestComment on above:Performed By: #### 34669, 55611, 70864, 43526, 06543 #### [facility] [address] [place] [address], USAPORTABLE CHEST 1 VIEWon [id number] CHEST 1 VIEW [facility] Department of Radiology [address] [place] [id number] Patient Name: VISHAL DUKE : 1960 Sex: M Age: Race: White Pt. Location: [id number] Patient Status: I Ordered Date: 08/05/2020 1:35:00 [...] reports Electronically signed: Mauricio Koo. Transcribed by: [email or web address], User Resident: ELADIA CABRERA Electronically Signed by: MAURICIO KOO @ 08/05/2020 02:08 AM I personally read this/these film(s) with this [facility] HospitalComment on above:Order Comment: Yes: Add to Previous draw if ablePOTASSIUM URon [id number] [Moles/Vol]61.0 mmol/LNormalThe [facility] WestComment on above:Order Comment: Yes: Add to Previous draw if ableResult Comment: There are no established reference values for random urine specimensPerformed By: #### 57036, 45397, 67640, 21343, 33978 #### [facility] [address] [place] [address], [facility] GENERAL HOSPITALPROCALCITONINon 40-47-3918JKFASFRHVHUGA9.54 ng/mLHigh 0.00-0.10The [facility] WestComment on above:Order Comment: Yes: Add to Previous draw if ableResult Comment: Suspected Lower Respiratory Tract Infection: 0.1-0.25ng/mL- Low likelihood for bacterial infection;Antibiotics discouraged.* >0.25ng/mL- Increased likelihood bacterial infection;Antibiotics encouraged. Suspected Sepsis: Strongly consider initiating antibiotics in all unstable patients. 0.1-0.5ng/mL- Low likelihood for sepsis; Antibiotics discouraged.* >0.5ng/mL- Increased likelihood sepsis; Antibiotics encouraged. >2.0ng/mL- High risk of sepsis/septic shock; Antibiotics strongly encouraged. *Recommend retesting PCT within 6-12hours if clinically indicated and initial PCT<0.5ng/mLPerformed By: #### 22530, 05953, 07003, 87913, 68193 #### [facility] [address] [place] [address], USASODIUM URINE RANDOMon 38-22-9230Snvmzy (U) [Moles/Vol]54 mmol/LNormalThe [facility] WestComment on above:Order Comment: Yes: Add to Previous draw if ableResult Comment: There are no established reference values for random urine specimensPerformed By: #### 87811, 93359, 05165, 79190, 08907 #### [facility] [address] [facility] [place] [place] [address], USATACROLIMUSon [id number] (Bld) [Mass/Vol]11.2 ng/mLNormal5.0-20.0The [facility] - WestComment on above:Order Comment: UnknownResult Comment: The SANDHU PORTFOLIO LEAD Tacrolimus assay is a delayed one-step immunoassay for the quantitative determination of tacrolimus in human whole blood using the chemiluminescent microparticle immunoassay (CMIA) technology with flexible assay protocols, referred to as Chemiflex.Performed By: #### 42373, 43839, 60683, 34958, 14318 #### [facility] [address] [facility] [place] [address], USATROPONIN-Ion 48-64-4313Usuxhefh I.cardiac [Mass/Vol]39.61 ng/mLCritically high0.00-0.04The [facility] - WestComment on above:Order Comment: Yes: Add to Previous draw if ableResult Comment: M-PREVIOUS CRITICAL RESULT REFERENCE RANGES: 0.00 - 0.04 ng/ml NORMAL 0.05 - 0.50 ng/ml INDETERMINATE > 0.50 ng/ml CONSISTENT WITH AN M.I.Performed By: #### 38214, 41075, 02779, 08752, 22595 #### [facility] [address] [facility] [place] [place] [address], USATroponin I.cardiac [Mass/Vol]36.67 ng/mLCritically high 0.00-0.04The [facility] - WestComment on above:Order Comment: No: Do not add to previous drawResult Comment: M-PREVIOUS CRITICAL RESULT REFERENCE RANGES: 0.00 - 0.04 ng/ml NORMAL 0.05 - 0.50 ng/ml INDETERMINATE > 0.50 ng/ml CONSISTENT WITH AN M.I.Performed By: #### 53329, 02186, 01770, 90209, 53102 #### [facility] [address] [facility] [place] [address], USATroponin I.cardiac [Mass/Vol]2.03 ng/mLCritically high 0.00-0.04The [facility] WestComment on above:Order Comment: Yes: Add to Previous draw if ableResult Comment: M-TROPONIN INITIAL CRITICAL HIGH; RESPUN AND RETESTED M-CRITICAL RESULT(S) REVIEWED, CALLED TO AND READ BACK BY ROSA M COTA RN AT 0902 REFERENCE RANGES: 0.00 - 0.04 ng/ml NORMAL 0.05 - 0.50 ng/ml INDETERMINATE > 0.50 ng/ml CONSISTENT WITH AN M.I.Performed By: #### 71155, 03128, 61344, 67631, 48134 #### [facility] [address] [facility] [place] [address], USATroponin I.cardiac [Mass/Vol]0.03 ng/mLNormal0.00-0.04The [facility] WestComment on above:Order Comment: Yes: Add to Previous draw if ableResult Comment: REFERENCE RANGES: 0.00 - 0.04 ng/ml NORMAL 0.05 - 0.50 ng/ml INDETERMINATE > 0.50 ng/ml CONSISTENT WITH AN M.I.Performed By: #### 55977, 81479, 06121, 56884, 70982 #### [facility] [address] [facility] [place] [address], USAUFH HEPARIN ASSAYon [id number] HEPARIN0.37 IU/mLNormal0.30-0.70The [facility] WestComment on above: Result Comment: Rivaroxaban and Apixaban will interfere with the anti Xa assay used to monitor UFH and LMWH.Performed By: #### 50478 ####[facility] [facility] [place] [address], USAUNFRACTIONATED HEPARIN0.17 IU/mL Low0.30-0.70The [facility] - WestComment on above:Result Comment: Rivaroxaban and Apixaban will interfere with the anti Xa assay used to monitor UFH and LMWH.Performed By: #### 49573 #### [facility] [address] [place] [address], USACOMP METABOLIC PANELon [id number] [Mass/Vol]3.1 g/dL Low3.5-5.7The [facility] WestComment on above:Order Comment: Yes: Add to Previous draw if ablePerformed By: #### 01420, 24385, 59238, 17458, 29504 #### [facility] [address] [place] [address], USAALKALINE LWTGZM17 IU/FOitblq67-992Xol [facility] WestComment on above:Order Comment: Yes: Add to Previous draw if able Performed By: #### 08881, 07477, 82577, 04947, 39907 #### [facility] [address] [facility] [place] [address], USAALT [Catalytic activity/Vol]47 U/LNormal7-52The [facility] WestComment on above:Order Comment: Yes: Add to Previous draw if ablePerformed By: #### 04228, 43045, 38755, 30374, 35970 #### [facility] [address] [place] [address], USAAST [Catalytic activity/Vol]45 U/LCmqz24-38Uhr [facility] WestComment on above:Order Comment: Yes: Add to Previous draw if ablePerformed By: #### 43269, 61048, 64844, 19520, 53875 #### [facility] [address] [place] [address], USABilirubin [Mass/Vol]0.5 mg/dLNormal0.3-1.0The [facility] WestComment on above:Order Comment: Yes: Add to Previous draw if ablePerformed By: #### 40337, 85122, 88137, 09341, 28182 #### [facility] [address] [place] [address], USACalcium [Mass/Vol]8.4 mg/dLLow8.6-10.3The [facility] WestComment on above:Order Comment: Yes: Add to Previous draw if ablePerformed By: #### 02573, 64927, 24235, 63643, 86860 #### [facility] [address] [place] [address], USAChloride [Moles/Vol]102 mmol/IIjxhrc04-376Gcg [facility] WestComment on above:Order Comment: Yes: Add to Previous draw if ablePerformed By: #### 97654, 28555, 18500, 39348, 54735 #### [facility] [address] [place] [address], USACO2 [Moles/Vol]24 mmol/ZCabxbv62-71Mcl [facility] WestComment on above:Order Comment: Yes: Add to Previous draw if able Performed By: #### 04295, 45914, 80227, 22205, 14721 #### [facility] [address] [place] [address], USACreatinine [Mass/Vol]1.04 mg/dLNormal0.70-1.30The [facility] WestComment on above:Order Comment: Yes: Add to Previous draw if ablePerformed By: #### 77532, 13299, 43071, 12175, 43890 #### [facility] [address] [place] [address], USAGFR/1.73 sq M.predicted among blacks MDRD (S/P/Bld) [Vol rate/Area]mL/min/{1.73_m2}Normal>60The [facility] Comment on above:Order Comment: Yes: Add to Previous draw if ablePerformed By: #### 20436, 01765, 88219, 02147, 09521 #### [facility] [address] [place] [address], USAGFR/1.73 sq M.predicted among non-blacks MDRD (S/P/Bld) [Vol rate/Area]mL/min/{1.73_m2}Normal>60The [facility] Comment on above:Order Comment: Yes: Add to Previous draw if ablePerformed By: #### 38739, 99665, 92491, 77611, 46974 #### [facility] [address] [place] [address], USAGlucose [Mass/Vol]196 mg/hFZwrq10-193Bfg [facility] WestComment on above:Order Comment: Yes: Add to Previous draw if ablePerformed By: #### 35927, 47462, 74614, 10982, 58140 #### [facility] [address] [place] [address], USAPotassium [Moles/Vol]4.6 mmol/LNormal3.5-5.1The [facility] - WestComment on above:Order Comment: Yes: Add to Previous draw if ablePerformed By: #### 68661, 59674, 92682, 08160, 85161 #### [facility] [address] [place] [address], USAProtein [Mass/Vol]5.8 g/dLLow6.0-8.3The [facility] WestComment on above:Order Comment: Yes: Add to Previous draw if ablePerformed By: #### 99743, 40836, 29196, 68225, 02962 #### [facility] [address] [place] [address], USASodium [Moles/Vol]135 mmol/QBio830-209Cfp [facility] WestComment on above:Order Comment: Yes: Add to Previous draw if ablePerformed By: #### 27977, 56822, 79779, 46948, 37046 #### [facility] [address] [place] [address], USAUrea nitrogen [Mass/Vol]38 mg/dLHigh7-25The [facility] WestComment on above:Order Comment: Yes: Add to Previous draw if ablePerformed By: #### 57235, 40378, 38749, 04598, 19867 #### [facility] [address] [place] [address], USACPKon 33-21-0062MH [Catalytic activity/Vol]80 U/LNormal 30-223The [facility] - WestComment on above:Performed By: #### 54258, 57169, 10493, 88207, 01017 #### [facility] [address] [facility] [place] [address], USALDH BLOODon 18-67-9048JKU650 Units/BHcru876-208Ozy [facility] - WestComment on above:Performed By: #### 69004, 80503, 02077, 07800, 77809 #### [facility] [address] [facility] [place] [address], USAMAGNESIUM BLOODon 75-06-2626Rwkrxuvej [Mass/Vol]2.3 mg/dL Normal1.9-2.7The [facility] - WestComment on above:Performed By: #### 07559, 52380, 41509, 43074, 49986 #### [facility] [address] [facility] [place] [address], USATACROLIMUSon 41-01-0777Vunxkyswtr (Bld) [Mass/Vol]17.4 ng/mLNormal5.0-20.0The [facility] WestComment on above:Order Comment: Yes: Add to Previous draw if ableResult Comment: The SANDHU PORTFOLIO LEAD Tacrolimus assay is a delayed one-step immunoassay for the quantitative determination of tacrolimus in human whole blood using the chemiluminescent microparticle immunoassay (CMIA) technology with flexible assay protocols, referred to as Chemiflex.Performed By: #### 87843, 02777, 72768, 37931, 67005 #### [facility] [address] [place] [address], USATROPONIN-Ion 91-49-3238Vebvxrdq I.cardiac [Mass/Vol]0.01 ng/mLNormal0.00-0.04The [facility] - WestComment on above: Result Comment: REFERENCE RANGES: 0.00 - 0.04 ng/ml NORMAL 0.05 - 0.50 ng/ml INDETERMINATE > 0.50 ng/ml CONSISTENT WITH AN M.I.Performed By: #### 25199, 67517, 42997, 42384, 10334 #### [facility] [address] [place] [address], [place]*SARS-CoV-2 COVID-19on 01-58-8149QGAG-CoV-2 (COVID-19) RNA ADELINE+probe Ql (Unsp spec)DetectedCritically abnormalNot DetectedThe [facility] - WestComment on above:Result Comment: Called Lara Reid on 08-03 at 1020.Performed By: #### 22657, 77070, 71607, 21885, 76039 #### [facility] [address] [place] [address], USABASIC METABOLIC PANELon 65-71-8947Kzhyxoy [Mass/Vol]8.4 mg/dLLow8.6-10.3The [facility] - WestComment on above:Order Comment: No: Do not add to previous draw Pt in bath room askme to come backPerformed By: #### 31269 #### [facility] [address] [place] [address], USAChloride [Moles/Vol]97 mmol/IKcr22-776Qdg [facility] WestComment on above:Order Comment: No: Do not add to previous draw Pt in bath room askme to come backPerformed By: #### 38496 #### [facility] [address] [place] [address], USACO2 [Moles/Vol]22 mmol/DSlwcyh01-46Urr [facility] - WestComment on above:Order Comment: No: Do not add to previous draw Pt in bath room askme to come backPerformed By: #### 81257 #### [facility] [address] [place] [address], USACreatinine [Mass/Vol]0.90 mg/dLNormal0.70-1.30The [facility] WestComment on above:Order Comment: No: Do not add to previous draw Pt in bath room askme to come backPerformed By: #### 79827 #### [facility] [address] [place] [address], USAGFR/1.73 sq M.predicted among blacks MDRD (S/P/Bld) [Vol rate/Area]mL/min/{1.73_m2}Normal>60The [facility] Comment on above:Order Comment: No: Do not add to previous draw Pt in bath room askme to come backPerformed By: #### 32723 #### [facility] [address] [place] [address], USAGFR/1.73 sq M.predicted among non-blacks MDRD (S/P/Bld) [Vol rate/Area]mL/min/{1.73_m2}Normal>60The [facility] Comment on above:Order Comment: No: Do not add to previous draw Pt in bath room askme to come backPerformed By: #### 90676 #### [facility] [address] [place] [address], USAGlucose [Mass/Vol]167 mg/xSZtzi76-603Pny [facility] WestComment on above:Order Comment: No: Do not add to previous draw Pt in bath room askme to come backPerformed By: #### 88872 #### [facility] [address] [place] [address], USAPotassium [Moles/Vol]4.4 mmol/LNormal3.5-5.1The [facility] WestComment on above:Order Comment: No: Do not add to previous draw Pt in bath room askme to come backPerformed By: #### 10995 #### [facility] [address] [place] [address], USASodium [Moles/Vol]131 mmol/FUsa567-511Ofz [facility] WestComment on above:Order Comment: No: Do not add to previous draw Pt in bath room askme to come backPerformed By: #### 39363 #### [facility] [address] [place] [address], USAUrea nitrogen [Mass/Vol]22 mg/dLNormal7-25The [facility] WestComment on above:Order Comment: No: Do not add to previous draw Pt in bath room askme to come backPerformed By: #### 20927 #### [facility] [address] [place] [address], [facility]ITALCBC W/DIFFon 47-93-9536WRC IMM GRANS0.1 10*3/uLNormal 0.0-0.2The [facility] WestComment on above:Order Comment: No: Do not add to previous drawPerformed By: #### 72663 #### [facility] [address] [place] [address], USAABS NEUTROPHILS4.8 10*3/uLNormal1.6-7.6The [facility] WestComment on above:Order Comment: No: Do not add to previous drawPerformed By: #### 85508 #### [facility] [address] [place] [address], USABasophils (Bld) [#/Vol]0.0 10*3/uLNormal0.0-0.2The [facility] WestComment on above:Order Comment: No: Do not add to previous drawPerformed By: #### 65773 #### [facility] [address] [place] [address], USABasophils/100 WBC (Bld)0.4 %Normal0.0-1.0The [facility] WestComment on above:Order Comment: No: Do not add to previous drawPerformed By: #### 35797 #### [facility] [address] [place] [address], USAEosinophils (Bld) [#/Vol]0.0 10*3/uLNormal0.0-0.5The [facility] WestComment on above:Order Comment: No: Do not add to previous drawPerformed By: #### 73103 #### [facility] [address] [place] [address], USAEosinophils/100 WBC (Bld)0.0 %Normal0.0-6.0The [facility] WestComment on above:Order Comment: No: Do not add to previous drawPerformed By: #### 11628 #### [facility] [address] [facility] [place] [address], USAErythrocyte distribution width (RBC) [Ratio]13.6 %Normal 11.5-15.0The [facility] WestComment on above:Order Comment: No: Do not add to previous drawPerformed By: #### 07895 #### [facility] [address] [facility] [place] [address], USAHematocrit (Bld) [Volume fraction]45.6 %Vkdtsh49.0-50.0The [facility] WestComment on above:Order Comment: No: Do not add to previous drawPerformed By: #### 84403 #### [facility] [address] [facility] [place] [address], USAHemoglobin (Bld) [Mass/Vol]15.9 g/wNBgguqs39.0-17.0The [facility] WestComment on above:Order Comment: No: Do not add to previous drawPerformed By: #### 64605 #### [facility] [address] [facility] [place] [address], USAIMMATURE GRANS0.9 %Normal0.0-1.0The [facility] WestComment on above:Order Comment: No: Do not add to previous draw Performed By: #### [id number] #### [facility] [address] [place] [address], USALymphocytes (Bld) [#/Vol]0.4 10*3/uLLow1.2-4.0The [facility] WestComment on above:Order Comment: No: Do not add to previous drawPerformed By: #### 67576 #### [facility] [address] [place] [address], USALymphocytes/100 WBC (Bld)7.1 %Low20.0-45.0The [facility] WestComment on above:Order Comment: No: Do not add to previous drawPerformed By: #### 74812 #### [facility] [address] [place] [address], [facility] (RBC) [Entitic mass]29.5 izRvamnv16.0-33.0The [facility] WestComment on above:Order Comment: No: Do not add to previous drawPerformed By: #### 45075 #### [facility] [address] [place] [address], [facility] (RBC) [Mass/Vol]34.9 g/xJElxqsa98.0-35.0The [facility] WestComment on above:Order Comment: No: Do not add to previous drawPerformed By: #### 34519 #### [facility] [address] [place] [address], [facility] (RBC) [Entitic vol]84.6 dRNmqowg51.0-98.0The [facility] WestComment on above:Order Comment: No: Do not add to previous drawPerformed By: #### 49711 #### [facility] [address] [place] [address], USAMonocytes (Bld) [#/Vol]0.2 10*3/uLNormal0.1-1.0The [facility] WestComment on above:Order Comment: No: Do not add to previous drawPerformed By: #### 75037 #### [facility] [address] [place] [address], USAMONOS4.2 %Low5.0-12.0The [facility] WestComment on above:Order Comment: No: Do not add to previous drawPerformed By: #### 16150 #### [facility] [address] [place] [address], USANeutrophils/100 WBC (Bld)87.4 %High40.0-72.0The [facility] WestComment on above:Order Comment: No: Do not add to previous drawPerformed By: #### 93619 #### [facility] [address] [place] [address], USANucleated RBC/100 WBC (Bld) [Ratio]0 %Normal0-0The [facility] WestComment on above:Order Comment: No: Do not add to previous drawPerformed By: #### 12222 #### [facility] [address] [place] [address], USAPLAT PQN804 10*3/kPXmyuaq994-723Vyr [facility] WestComment on above:Order Comment: No: Do not add to previous draw Performed By: #### 79776 #### [facility] [address] [place] [address], USARBC (Bld) [#/Vol]5.39 10*6/uLNormal4.20-5.70The [facility] WestComment on above:Order Comment: No: Do not add to previous drawPerformed By: #### 17929 #### [facility] [address] [place] [address], USAWBC (Bld) [#/Vol]5.47 10*3/uLNormal4.00-10.60The [facility] WestComment on above:Order Comment: No: Do not add to previous drawPerformed By: #### 63232 #### [facility] [address] [place] [address], USACPKon 83-00-7660JT [Catalytic activity/Vol]168 U/LNormal 30-223The [facility] WestComment on above:Order Comment: No: Do not add to previous draw Pt in bath room askme to come backPerformed By: #### 07514 #### [facility] [address] [place] [address], USAD DIMER TESTon 84-03-1202R-DIMER TEST5.09 mcg/mL FEUHigh 0.27-0.49The [facility] WestComment on above:Order Comment: No: Do not add to previous drawResult Comment: D-Dimer values of less than 0.50 ug/ml (FEU) are considered to be a negative predictor of thrombosis. However, the D-Dimer result should be used in conjunction with pretest probability and should not be used alone to diagnose a thrombotic event. D-DIMER RESULT REPEATED AND CONFIRMEDPerformed By: #### 19441 ####[facility] [place] [address], USAFERRITINon 48-84-4159Zahvulfv [Mass/Vol]1079 ng/cONcrg17-137Ejn [facility] WestComment on above:Order Comment: No: Do not add to previous draw Pt in bath room askme to come backPerformed By: #### 89678 #### [facility] [address] [place] [address], USALDH BLOODon 37-93-7621JSA450 Units/CYsku183-689Xhm [facility] WestComment on above:Order Comment: No: Do not add to previous draw Pt in bath room askme to come backPerformed By: #### 81919 #### [facility] [address] [place] [address], USALIVER BATTERYon 28-96-9245Qdkmldk [Mass/Vol]3.6 g/dLNormal 3.5-5.7The [facility] WestComment on above:Order Comment: Yes: Add to Previous draw if ablePerformed By: #### 02118, 05568, 19970, 40713, 76234 #### [facility] [address] [place] [address], USAALKALINE MUKLLH34 IU/SAartku69-306Gcq [facility] WestComment on above:Order Comment: Yes: Add to Previous draw if able Performed By: #### 19200, 08841, 11188, 73350, 09831 #### [facility] [address] [place] [address], USAALT [Catalytic activity/Vol]34 U/LNormal7-52The [facility] WestComment on above:Order Comment: Yes: Add to Previous draw if ablePerformed By: #### 82799, 02264, 19696, 36349, 80678 #### [facility] [address] [place] [address], USAAST [Catalytic activity/Vol]40 U/CNmzs50-98Ltk [facility] WestComment on above:Order Comment: Yes: Add to Previous draw if ablePerformed By: #### 30568, 27153, 02812, 77460, 48631 #### [facility] [address] [place] [address], USABilirubin [Mass/Vol]0.7 mg/dLNormal0.3-1.0The [facility] WestComment on above:Order Comment: Yes: Add to Previous draw if ablePerformed By: #### 01890, 82073, 05319, 03003, 98835 #### [facility] [address] [place] [address], USABilirubin.direct [Mass/Vol]0.1 mg/dLNormal0.0-0.2The [facility] WestComment on above:Order Comment: Yes: Add to Previous draw if ablePerformed By: #### 42100, 17126, 78746, 48050, 01427 #### [facility] [address] [facility] [place] [address], USAProtein [Mass/Vol]6.3 g/dLNormal6.0-8.3The [facility] WestComment on above:Order Comment: Yes: Add to Previous draw if ablePerformed By: #### 61518, 49812, 71909, 30037, 05814 #### [facility] [address] [facility] [place] [address], USAMAGNESIUM BLOODon 50-45-8784Hvpnqnqug [Mass/Vol]2.3 mg/dL Normal1.9-2.7The [facility] WestComment on above:Order Comment: No: Do not add to previous draw Pt in bath room askme to come backPerformed By: #### 16877 #### [facility] [address] [facility] [place] [place] [address], USAPHOSPHORUS BLOODon 89-03-5502Cisiardmu [Mass/Vol]3.6 mg/dL Normal2.5-5.0The [facility] WestComment on above:Order Comment: No: Do not add to previous draw Pt in bath room askme to come backPerformed By: #### 24753 #### [facility] [address] [facility] [place] [address], USAPORTABLE CHEST 1 VIEWon [id number] CHEST 1 VIEW [facility] Department of Radiology [address] [place] [id number] Patient Name: VISHAL DUKE : 1960 Sex: M Age: Race: White Pt. Location: [id number] Patient Status: I Ordered Date: 08/03/2020 8:00:00 [...] pneumonia. Electronically signed: Dariela Vincent. Transcribed by: [email or web address], User Resident: Electronically Signed by: DARIELA VINCENT @ 08/03/2020 07:52 AMNormalThe [facility] - WestComment on above:Order Comment: No: Do not add to previous draw CV'D BY IMM LAB AT 1240PROCALCITONINon 57-54-4503AAZJPIJWUQSUH3.31 ng/mLHigh 0.00-0.10The [facility] - WestComment on above:Order Comment: No: Do not add to previous drawResult Comment: Suspected Lower Respiratory Tract Infection: 0.1-0.25ng/mL- Low likelihood for bacterial infection;Antibiotics discouraged.* >0.25ng/mL- Increased likelihood bacterial infection;Antibiotics encouraged. Suspected Sepsis: Strongly consider initiating antibiotics in all unstable patients. 0.1-0.5ng/mL- Low likelihood for sepsis; Antibiotics discouraged.* >0.5ng/mL- Increased likelihood sepsis; Antibiotics encouraged. >2.0ng/mL- High risk of sepsis/septic shock; Antibiotics strongly encouraged. *Recommend retesting PCT within 6-12hours if clinically indicated and initial PCT<0.5ng/mLPerformed By: #### 78358, 50632, 65761, 11100, 57921 #### [facility] [address] [place] [address], USATACROLIMUSon 17-18-1722Ttlzawpclr (Bld) [Mass/Vol]24.9 ng/mLHigh5.0-20.0The [facility] - WestComment on above:Order Comment: Yes: Add to Previous draw if ableResult Comment: The S[employer] LEAD Tacrolimus assay is a delayed one-step immunoassay for the quantitative determination of tacrolimus in human whole blood using the chemiluminescent microparticle immunoassay (CMIA) technology with flexible assay protocols, referred to as Chemiflex.Performed By: #### 30609, 17406, 17588, 86994, 42464 #### [facility] [address] [place] [address], USATROPONIN-Ion 60-26-0787Lwijyuoq I.cardiac [Mass/Vol]0.01 ng/mLNormal0.00-0.04The [facility] - WestComment on above: Order Comment: No: Do not add to previous draw Pt in bath room askme to come backResult Comment: REFERENCE RANGES: 0.00 - 0.04 ng/ml NORMAL 0.05 - 0.50 ng/ml INDETERMINATE > 0.50 ng/ml CONSISTENT WITH AN M.I.Performed By: #### 33912 #### [facility] [address] [place] [address], USAURINALYSIS REFLEXon 25-72-5347Skfxymubbq (U)CLEARNormal CLEARThe [facility] - WestComment on above:Order Comment: No: Do not add to previous draw CV'D BY IMM LAB AT 1240Performed By: #### 89831 #### [facility] [address] [place] [address], USABilirubin Ql (U)NegativeNormalNEGATIVEThe [facility] WestComment on above:Order Comment: No: Do not add to previous draw CV'D BY IMM LAB AT 1240Performed By: #### 70997 #### [facility] [address] [place] [address], USAColor (U)YELLOWNormalYELLOWThe [facility] WestComment on above:Order Comment: No: Do not add to previous draw CV'D BY IMM LAB AT 1240Performed By: #### 45353 #### [facility] [address] [place] [address], USAEPISNONE SEENNormalFEW,OCC,NONE SEENThe [facility] - WestComment on above:Order Comment: No: Do not add to previous draw CV'D BY IMM LAB AT 1240Performed By: #### 64525 #### [facility] [address] [place] [address], USAGlucose Ql (U)NegativeNormalNEGATIVEThe [facility] WestComment on above:Order Comment: No: Do not add to previous draw CV'D BY IMM LAB AT 1240Performed By: #### 40947 #### [facility] [address] [place] [address], USAHemoglobin Ql (U)TRACE, RESULTS CHECKEDAbnormalNEGATIVEThe [facility] WestComment on above:Order Comment: No: Do not add to previous draw CV'D BY IMM LAB AT 1240Performed By: #### 49395 #### [facility] [address] [place] [address], USAKETONENegativeNormalNEGATIVEThe [facility] WestComment on above:Order Comment: No: Do not add to previous draw CV'D BY IMM LAB AT 1240Performed By: #### 19151 #### [facility] [address] [place] [address], USALEUK ESTERNegativeNormalNEGATIVEThe [facility] WestComment on above:Order Comment: No: Do not add to previous draw CV'D BY IMM LAB AT 1240Performed By: #### 23707 #### [facility] [address] [place] [address], USANitrite Ql (U)NegativeNormalNEGATIVEThe [facility] WestComment on above:Order Comment: No: Do not add to previous draw CV'D BY IMM LAB AT 1240Performed By: #### 78333 #### [facility] [address] [place] [address], USApH (U)6.0 [pH]Normal5.0-8.0The [facility] WestComment on above:Order Comment: No: Do not add to previous draw CV'D BY IMM LAB AT 1240Performed By: #### 73951 #### [facility] [address] [place] [address], USAProtein Ql (U)NegativeNormalNEGATIVEThe [facility] WestComment on above:Order Comment: No: Do not add to previous draw CV'D BY IMM LAB AT 1240Performed By: #### 01032 #### [facility] [address] [place] [address], USARBC3-5AbnormalNONE SEENThe [facility] WestComment on above:Order Comment: No: Do not add to previous draw CV'D BY IMM LAB AT 1240Performed By: #### 54138 #### [facility] [address] [place] [address], USASPEC GRAV1.950Rrzaga7.015-1.020The [facility] - WestComment on above:Order Comment: No: Do not add to previous draw CV'D BY IMM LAB AT 1240Performed By: #### 27692 #### [facility] [address] [facility] [place] [address], USAWBC UA0-2AbnormalNONE SEENThe [facility] WestComment on above:Order Comment: No: Do not add to previous draw CV'D BY IMM LAB AT 1240Performed By: #### 84458 #### [facility] [address] [facility] [place] [address], [facility] Vital Signs Date TimeVital SignValuePerforming KvotzzbcyBnncskzi97-56-7540 12:36-0400Body bcheah926.07 cmRosa M Gonzales MD Work Phone: [phone]09-22-2025 12:36-0400 Body mass index (BMI) [Ratio]28.7 kg/h0YaoujcagRosa M Gonzales MD Work Phone: [phone]09-22-2025 12:36-0400 Body bunhazrvabt70.9 [degF]Rosa M Gonzales MD Work Phone: [phone]09-22-2025 12:36-0400 Body zddgmy47.07 kgRosa M Gonzales MD Work Phone: [phone]09-22-2025 12:36-0400 Diastolic blood axkxnnxf16 mm[Hg]Rosa M Gonzales MD Work Phone: [facility]09-22-2025 12:36-0400 Heart rate72 /Humphrey Gonzales MD Work Phone: [phone]89[facility]09-22-2025 12:36-0400 Respiratory rate14 /Humphrey Gonzales MD Work Phone: [phone]09-22-2025 12:36-0400 SaO2% (BldA) [Mass fraction]99 %Rosa M Gonzales MD Work Phone: [phone]09-22-2025 12:36-0400 Systolic blood flyggroh836 mm[Hg]Rosa M Gonzales MD Work Phone: [phone]09-19-2025 09:00-0400 Diastolic blood hyrcmhmj89 mm[Hg]Avelina Rodriges MD Work Phone: [facility]Lnytywhcfa77-44-1679 09:00-0400Systolic blood qvcmytot327 mm[Hg]Avelina Rodriges MD Work Phone: [place] [address]Aozlsaxvbw54-12-3970 13:53-0400Body dinmbn213.3 cmRosa M Gonzales MD Work Phone: [place] [address]Zcapqxgebs31-74-9084 13:53-0400Body mass index (BMI) [Ratio]28.81 kg/t2RsxykxcoRosa M Gonzales MD Work Phone: [phone] [address]Mqcjhksjtb56-48-3078 13:53-0400Body busric19.71 kgRosa M Gonzales MD Work Phone: [place] [address]Zvhqogdufg57-65-8177 13:53-0400Diastolic blood njkicuoa08 mm[Hg]Rosa M Gonzales MD Work Phone: [facility] HealthcareComment on above:laying down- 132/76 P 67, Sitting 110/70 P 64, Standing 104/72 P 8260-42-6449 13:53-0400Heart rate65 /minRosa M Gonzales MD Work Phone: [place] [address]Wrqhomfybr13-75-2142 13:53-2369NlF0% (BldA) [Mass fraction]94 %Rosa M Gonzales MD Work Phone: [phone] [address]Wkynltdeit83-21-4658 13:53-0400Systolic blood mm[Hg]Rosa M Gonzales MD Work Phone: [phone] [place] [address] HealthcareComment on above:laying down- 132/76 P 67, Sitting 110/70 P 64, Standing 104/72 P 8732-97-5520 11:26-0400Body height 180.3 cmRosa M Gonzales MD Work Phone: [phone]06-19-2025 11:26-0400Body mass index (BMI) [Ratio]28.51 kg/z5LzvfaqhfRosa M Gonzales MD Work Phone: [phone] [address]06-19-2025 11:26-0400Body rqgudw00.72 kgRosa M Gonzales MD Work Phone: [phone] WashingtonMjyvscddbu12-27-8047 11:26-0400Diastolic blood emuwvfmi76 mm[Hg]Rosa M Gonzales MD Work Phone: [phone] [address]06-19-2025 11:26-0400Heart rate64 /min Rosa M Gonzales MD Work Phone: [phone]06-19-2025 11:26-6963MmJ8% (BldA) [Mass fraction]93 %Rosa M Gonzales MD Work Phone: [facility] WashingtonCbnmrcmvyk21-34-5647 11:26-0400Systolic blood mm[Hg]Rosa M Gonzales MD Work Phone: [phone] WashingtonTzocseskda36-67-4120 08:37-0500Diastolic blood zpiuuwfs77 mm[Hg]Efren Centeno MD Work Phone: [facility] WashingtonVayxornwbf09-45-8227 08:37-0500Systolic blood mm[Hg]Efren Centeno MD Work Phone: [place] [address]Iwkbvckscx13-37-0198 15:17-0500Body .3 cmRosa M Gonzales MD Work Phone: [place] [address]Rxvepowzws21-86-1769 15:17-0500Body mass index (BMI) [Ratio]28.28 kg/e4DmuplwqtRosa M Gonzales MD Work Phone: [facility] WashingtonFjomjhdhsu22-92-2789 15:17-0500Body .99 kgRosa M Gonzales MD Work Phone: [place] [address]Zsupsqfrtm51-37-8018 15:17-0500Diastolic blood pbolwqyd02 mm[Hg]Rosa M Gonzales MD Work Phone: [place] [address]Alaqhpbgrg01-37-4585 15:17-0500Heart rate72 /min Rosa M Gonzales MD Work Phone: [facility] WashingtonCwyllycleo62-63-9575 15:17-3864FzP3% (BldA) [Mass fraction]92 %Rosa M Gonzales MD Work Phone: [place] [address]Tdslwqxngi77-25-9683 15:17-0500Systolic blood mm[Hg]Rosa M Gonzales MD Work Phone: [place] [address]Qpmqnthyzl97-79-1047 13:54-0500Blood Pressure LocationPaasia [facility]11-18-2024 13:54-0500Body sxqjhqtwekj65.6 [degF]Reji [facility] [place] [address]-18-2024 13:54-0500Diastolic blood jxjppcal02 mm[Hg]Reji [facility]11-18-2024 13:54-0500Heart rate67 /minReji [facility] [place] [address]-18-2024 13:54-0500Respiratory rate18 /minPatricrita BROWER [facility]11-18-2024 13:54-0500Systolic blood afzhqzoi406 mm[Hg]Reji BROWER [facility]10-14-2024 15:10-0400Body hwzzoo895.3 Etta Mirandadiaedinson [employer] Work Phone: [phone] [address]Fvpxwoobiw38-39-1902 15:10-0400Body mass index (BMI) [Ratio]27.89 kg/o5JpukiNicki Mirandajosé [employer] Work Phone: [phone] [place] [address]-14-2024 15:10-0400Body rcinad84.72 kgNicki Mirandadiaedinson [employer] Work Phone: [phone] [address]Rvuakhfydh06-39-3352 15:10-0400Diastolic blood dwlilywb30 mm[Hg]Nicki Mirandajosé [employer] Work Phone: [phone] [address]Ecafemnsyd52-33-8739 15:10-0400Heart rate56 /min Nicki Mirandadiaedinson [employer] Work Phone: [phone] [place] [address]-14-2024 15:10-0814IaN3% (BldA) [Mass fraction]95 %Nicki Mirandadiaedinson [employer] Work Phone: [phone] [address]Jbpwqlyfrx24-42-2741 15:10-0400Systolic blood csxiqzyy848 mm[Hg]Nicki Mirandajosé [employer] Work Phone: [phone] [address]Hrcyyqgtxg34-53-4139 12:00-0400Body lsoqma611.3 Etta Mirandadiadeinson [employer] Work Phone: [phone] [place] [address]-11-2024 12:00-0400Body mass index (BMI) [Ratio]27.89 kg/z2Hokpj Kamjosé [employer] Work Phone: [phone] [address]Mzwwtblckp81-74-7993 12:00-0400Body .72 kgNicki Velez [employer] Work Phone: [facility]Rzulqrwbqa22-55-3269 12:00-0400Diastolic blood gurpsrqd10 mm[Hg]Nicki Velez [employer] Work Phone: [facility] WashingtonMuojtzhvca87-90-6472 12:00-0400Heart rate69 /min Nicki Velez [employer] Work Phone: [facility] WashingtonJuwlcckbmf57-15-8891 12:00-4338GaD6% (BldA) [Mass fraction]97 %Nicki Velez [employer] Work Phone: [facility] WashingtonZdvvclmcns75-27-9626 12:00-0400Systolic blood fvnbylhg414 mm[Hg]Nicki Velez [employer] Work Phone: [facility] WashingtonVjzxaiaewl63-52-5984 10:35-0400Diastolic blood refgxhnf94 mm[Hg]Schmidt Sarmini [facility]09-26-2024 10:35-0400Heart rate60 /minMuhammad Sarmini [facility]09-26-2024 10:35-0400Mean blood tofuwmre59 mm[Hg]Schmidt Sarmini [facility]09-26-2024 10:35-0400 Respiratory rate18 /minMuhammad Sarmini [facility]09-26-2024 10:35-1953PdT1% (BldA) [Mass fraction]93 %Schmidt Sarmini [facility]09-26-2024 10:35-0400 Systolic blood govgviku279 mm[Hg]Schmidt Sarmini [facility]09-26-2024 10:25-0400 Diastolic blood ufsjlcoa65 mm[Hg]Schmidt Sarmini [address] [place], [place] 79[address]609-26-2024 10:25-0400Heart rate70 /minMuhammad Sarmini [facility]09-26-2024 10:25-0400Mean blood eitdmrwl52 mm[Hg]Schmidt Sarmini [facility]09-26-2024 10:25-0400 Respiratory rate20 /minMuhammad Sarmini [address] [place], [place] 7950609-26-2024 10:25-1546NpR4% (BldA) [Mass fraction]94 %Schmidt Sarmini [address] [place], [place] 4932009-26-2024 10:25-0400 Systolic blood yayueldg388 mm[Hg]Schmidt Sarmini [facility]09-26-2024 10:10-0400Body ljywejsrbco81.7 [degF]Schmidt Sarmini [facility]09-26-2024 10:10-0400 Diastolic blood bgizpwna14 mm[Hg]Schmidt Sarmini [facility]09-26-2024 10:10-0400Heart rate70 /minMuhammad Sarmini [facility]09-26-2024 10:10-0400Mean blood ytlckuva73 mm[Hg]Schmidt Sarmini [facility]09-26-2024 10:10-0400 Respiratory rate19 /minMuhammad Sarmini [facility]09-26-2024 10:10-8755LbA5% (BldA) [Mass fraction]95 %Schmidt Sarmini [address] [place], [place] 4932[address]-26-2024 10:10-0400 Systolic blood epqokpgk05 mm[Hg]Schmidt Sarmini [facility]09-26-2024 10:05-0400 Respiratory rate22 /minMuhammad Sarmini [address] [place], [place] 4932009-26-2024 09:55-0400 Respiratory rate22 /minMuhammad Sarmini [address] [place], [place] 4932009-26-2024 08:46-0400Blood Pressure LocationMuhammad Sarmini [address]09-26-2024 08:46-0400Body ivyjjgbaixq25.52 [degF]Schmidt Sarmini [address] [place], [place] 4932009-09-2024 09:28-0400 Diastolic blood hvtxwlcy70 mm[Hg]Schmidt Sarmini 075-3508Fhaxgf-Kfjpx[address] [place], [place] 5838009-09-2024 09:28-0400Mean blood qstsaysq175 mm[Hg]Schmidt Sarmini 236-5125Sgiumm-Ltaif[address] [place], [place] 5838009-09-2024 09:28-0400Systolic blood mcmmoogz656 mm[Hg]Schmidt Sarmini 335-4416Wqnkdw-Pecbi[address] [place], [place] 5838009-09-2024 09:14-0400Blood Pressure LocationMuhammad Sarmini 307-0155Dpkgos-Zxiyu[address] [place], [place] 5838009-09-2024 09:14-0400Diastolic blood oewpkhzx86 mm[Hg]Schmidt Sarmini 381-1844Zpmvyy-Asbtn[address] [place], [place] 5838[address]-09-2024 09:14-0400Heart rate60 /minMuhammad Sarmini 438-9354Trhbsv-Aslwb[address] [place], [place] 58[address]009-09-2024 09:14-0400Systolic blood loqbxqxm554 mm[Hg]Xochilt Graham 500-7947[facility]10-[facility]-2022 11:53-0400Blood Pressure LocationPatrick BROWER [facility]10-03-2022 11:53-0400Diastolic blood jbejndmh71 mm[Hg]Rejiraghavendra BROWER [facility]10-03-2022 11:53-0400Heart rate63 /minPatrick BROWER [facility]10-03-2022 11:53-0400Respiratory rate18 /minPatrick BROWER [facility]10-03-2022 11:53-0400Systolic blood wbtchkel997 mm[Hg]Rejiraghavendra BROWER [facility]01-07-2022 17:40-0500Diastolic blood kmuofnkm91 mm[Hg]Rosa M Gonzales Work Phone: mp393-6440ZG-Ahcpj [facility] 250 DO Work Phone: 1(847) 784-586201-07-2022 17:40-0500Systolic blood svirbufy711 mm[Hg] Rosa M Gonzales Work Phone: mp742-7616BJ-Uclyg [facility] 250 DO Work Phone: 1([phone] 612-779801-07-2022 15:22-0500Body oszwzb237.34 cmRosa M Gonzales Work Phone: mp327-2988XA-Glvkw [facility] 250 DO Work Phone: [phone]) 400-549101-07-2022 15:22-0500Body mass index (BMI) [Ratio] 29.57 kg/m7TjllawmrRosa M Gonzales Work Phone: mp878-5112CC-Zeybl [facility] 250 DO Work Phone: [phone] 951-837901-07-2022 15:22-0500Body surface area Derived from formula2.16 r4Wjtrcazn R Janet Work Phone: mp960-5124YJ-Cqusa [facility] 250 DO Work Phone: 1(149) 335-991201-07-2022 15:22-0500Body hoevbe75.16 kgRosa M Farrell Janet Work Phone: mp438-3964TR-Gsyik [facility] 250 DO Work Phone: 1([phone]) 343-996301-07-2022 15:22-0500Diastolic blood kimunfio59 mm[Hg] Rosa M Farrell Janet Work Phone: mp327-6200OW-Zirfo [facility] 250 DO Work Phone: 1([phone] 737-802601-07-2022 15:22-0500Heart rate61 /minRosa M Farrell Janet Work Phone: mp234-3680TL-Ynkyv [facility] 250 DO Work Phone: 1(143) 801-534701-07-2022 15:22-0500Systolic blood qqjuxnyp824 mm[Hg] Rosa M Farrell Janet Work Phone: [phone]-Vxggf [facility] DO Work Phone: Encounters Encounter DateEncounter TypeCare ProviderFacilityStart: 01-21-2025 End: 18-14-2546rtgvifxbmiLYDBYT FLEMINGNot AvailableStart: 01-20-2025 End: 01-37-2572Pcyagqrec Result EncounterGeneric External Data ProviderNOMS External Department UnsolicitedStart: 01-20-2025 End: 26-56-9324Ghxpccnjy Result EncounterGeneric External Data ProviderNOMS External Department UnsolicitedStart: 01-17-2025 End: 84-91-3985Bmacov flowsheetAvelina Rodriges MD Work Phone: [facility] DermatologyStart: 01-17-2025 End: 86-59-6939Xlveen Ced Rodriges MD Work Phone: SULEIMAN Mejia DermatologyStart: 01-17-2025 End: 24-97-8691aptykpjmikZDCRCYQS WILSONNot AvailableStart: 01-17-2025 End: 68-95-8889Edsurbv encounter procedureAvelina Rodriges MD Work Phone: SULEIMAN Dcy DermatologyComment on above:Actinic keratosis (Primary Dx); Seborrheic keratosis, inflamed; Encounter for removal of suturesStart: 01-06-2025 End: 19-81-9460zwmsdtegcjAdtpgjuqAlbert Gonzales MD Work Phone: [facility] Work Phone: Start: 01-06-2025 End: 55-29-9784Ftjuvqx encounter procedureSaint [facility] Work Phone: Start: 01-03-2025 End: 26-05-6630Apporo Ced Rodriges MD Work Phone: NOMS Dcy DermatologyStart: 01-03-2025 End: 94-82-8270Dvkujo Ced Rodriges MD Work Phone: SULEIMAN Dcy DermatologyStart: 01-03-2025 End: 30-56-4196Oassysx encounter procedureAvelina Rodriges MD Work Phone: SULEIMAN Ruben DermatologyComment on above:Basal cell carcinoma of skin of scalp and neck; Actinic keratosis; Neoplasm of uncertain behaviorStart: 01-03-2025 End: 70-06-5456mbrhrbowmjJTFCUOFK WILSONNot AvailableStart: 12-17-2024 End: 60-67-0784Mbaxkxbqr Result EncounterGeneric External Data ProviderNOMS External Department UnsolicitedStart: 12-17-2024 End: 39-28-1697Juysxaldm Result EncounterGeneric External Data ProviderNOMS External Department UnsolicitedStart: 12-04-2024 End: 82-45-7440SyrahkQydzvfpn Hohman MD Work Phone: noBaldwin Park HospitalComment on above:History of kidney transplant (HCC)Start: 12-03-2024 End: 02-25-6202Hbxytk Kamala Gonzales MD Work Phone: noms [facility] MedicineStart: 12-03-2024 End: 33-14-1120Okvtzg Kamala Gonzales MD Work Phone: [facility] MedicineStart: 12-03-2024 End: 55-97-0545Hbjynb outpatient visit 25 minutesRosa M Gonzales MD Work Phone: noBaldwin Park HospitalComment on above:Dizziness (Primary Dx); Orthostatic hypotension; Gastroesophageal reflux disease without esophagitisStart: 12-03-2024 End: 41-97-3192egkscjrrpwGXJQYWPW HOHMANNot AvailableStart: 11-15-2024 End: 67-31-4550Divxploxq Result EncounterGeneric External Data ProviderNOMS External Department UnsolicitedStart: 11-15-2024 End: 24-64-8221Obqtvueys Result EncounterGeneric External Data ProviderNOMS External Department UnsolicitedStart: 11-04-2024 End: 39-86-5607Qzxoss Ernestine Fishman MD Work Phone: noms [facility] DERMStart: 11-04-2024 End: 63-41-2976Lpqtswkieran Fishman MD Work Phone: noms [facility] DERMStart: 11-04-2024 End: 26-03-9251Nrsyct outpatient visit 15 minutesEmtony Fishman MD Work Phone: noms [facility] DERMComment on above:Seborrheic keratosis (Primary Dx); Lentigines; History of basal cell carcinoma; Actinic keratosis; Neoplasm of unspecified behavior of bone, soft tissue, and skin; Seborrheic keratosis, inflamedStart: 11-04-2024 End: 39-90-9738vbfggbmfbiRYJEY A PETITTINot AvailableStart: 10-22-2024 End: 69-53-5125aezxfgmfkxTCED ANDREAOhioHealth Southeastern Medical Centertart: 10-17-2024 End: 26-99-3700cajttsgnzpXRCNY SARAIMercy Health Willard Hospitaltart: 10-17-2024 End: 91-76-4220jyfjrvgdpsRYNJ ZULEIKABECKYSelect Medical Specialty Hospital - Youngstowntart: 10-15-2024 End: 45-56-4092Gsuyaoujv Result EncounterGeneric External Data ProviderNOMS External Department UnsolicitedStart: 10-15-2024 End: 11-33-2592Voovslkij Result EncounterGeneric External Data ProviderNOMS External Department UnsolicitedStart: 10-14-2024 End: 50-13-8642Xmlbypzcr Result EncounterGeneric External Data ProviderNOMS External Department UnsolicitedStart: 10-14-2024 End: 98-27-5031Fjicojgqr Result EncounterGeneric External Data ProviderNOMS External Department UnsolicitedStart: 10-03-2024 End: 41-03-4375Vqwvsh Kamala Gonzales MD Work Phone: noMS FNR FMStart: 10-03-2024 End: 06-22-2010Rngtcl flowsCarolin Gonzales MD Work Phone: NOMS FNR FMStart: 10-03-2024 End: 51-44-6195Iwzbfeoyt encounterRosa M Gonzales MD Work Phone: NOMS FNR FMStart: 10-03-2024 End: 27-30-0218Lubbtdx encounter statusRosa M Gonzales MD Work Phone: [facility] Work Phone: Start: 10-03-2024 End: 68-51-7952Pdewblac preventive med est patient 65yrs& olderRosa M Gonzales MD Work Phone: NOQF FNR FMComment on above:Wellness examination (Primary Dx); Simple chronic bronchitis (HCC); Post-COVID chronic dyspnea; Chronic systolic congestive heart failure (HCC); Essential hypertension ; End-stage renal disease (HCC); PKD (polycystic kidney disease); Stage 3a chronic kidney disease (CMS-HCC); History of kidney transplant (HCC); Dizziness; Type 2 diabetes mellitus with diabetic cataract (HCC); Type 2 diabetes mellitus with diabetic polyneuropathy (HCC); Cardiomyopathy, unspecified (HCC)Start: 10-03-2024 End: 84-31-3266vismaczyisLDXMJFLD HOHMANNot AvailableStart: 09-18-2024 End: 67-17-9446xqbwityzzmXHZF [facility] Centertart: 09-10-2024 End: 14-99-3705Oilbbdbwk Result EncounterGeneric External Data ProviderNOMS External Department UnsolicitedStart: 09-10-2024 End: 52-21-9474Aytnqqyxv Result EncounterGeneric External Data ProviderNOMS External Department UnsolicitedStart: 08-09-2024 End: 48-88-1691Hirmdghat Result EncounterGeneric External Data ProviderNOMS External Department UnsolicitedStart: 08-09-2024 End: 11-62-4793Tauctiscr Result EncounterGeneric External Data ProviderNOMS External Department UnsolicitedStart: 06-19-2024 End: 82-84-8259Apugrro encounter procedureEmtony Fishman MD Work Phone: noms [facility] DERMComment on above:Basal cell carcinoma of skin of other part of trunk (Primary Dx)Start: 06-19-2024 End: 15-22-4004rlcjhkbnyqAIDAE A PETITTINot AvailableStart: 06-14-2024 End: 24-81-8221Rmugwmt encounter procedureEfren Centeno MD Work Phone: noms SWS DERMComment on above: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 (Primary Dx)Start: 06-14-2024 End: 95-64-7385bakxdirpdrCREAQK E FLEMINGNot AvailableStart: 06-12-2024 End: 13-08-6161gregfqhlxvPDIJO [facility] Healthtart: 06-07-2024 End: 34-05-1606Urzbuswmj Result EncounterGeneric External Data ProviderNOMS External Department UnsolicitedStart: 06-07-2024 End: 31-68-0459Jlsurnluh Result EncounterGeneric External Data ProviderNOMS External Department UnsolicitedStart: 05-14-2024 End: 89-07-5315xuvlzkfjymPNXO CHADayton Osteopathic Hospitaltart: 05-07-2024 End: 82-74-9514Kysoztywm Result EncounterGeneric External Data ProviderNOMS External Department UnsolicitedStart: 05-07-2024 End: 01-17-7483Fzrglnyie Result EncounterGeneric External Data ProviderNOMS External Department UnsolicitedStart: 05-02-2024 End: 08-68-2081Gtjdqxfrancisco Fishman MD Work Phone: noms SWS DERMStart: 05-02-2024 End: 95-64-7173Xurilpkieran Fishman MD Work Phone: noms SWS DERMStart: 05-02-2024 End: 45-36-8055Luqwvz outpatient visit 15 minutesEmtony Fishman MD Work Phone: noms SWS DERMComment on above:Seborrheic keratosis (Primary Dx); Actinic keratosis; Lentigines; Neoplasm of unspecified behavior of bone, soft tissue, and skin; History of basal cell carcinoma; History of SCC (squamous cell carcinoma) of skinStart: 05-02-2024 End: 11-95-3521mjrfqfwbarVCHKI A PETITTINot AvailableStart: 04-11-2024 End: 33-10-3674fzblworieaTXXCN SAVZGood Samaritan Hospitaltart: 04-04-2024 End: 05-46-7595Dwmzjomsy Result EncounterGeneric External Data ProviderNOMS External Department UnsolicitedStart: 04-04-2024 End: 68-05-7390Ktgtttpnn Result EncounterGeneric External Data ProviderNOMS External Department UnsolicitedStart: 03-21-2024 End: 87-81-4551Oumcqf outpatient visit 15 minutesRosa M Gonzales MD Work Phone: noms FNR FMComment on above:Herpes zoster without complication (Primary Dx); Elevated fasting glucoseStart: 03-21-2024 End: 47-67-2049seqdbqqnqfPSFTOSQN HOHMANNot AvailableStart: 03-21-2024 End: 24-71-5322Rwzecnkieran Gonzales MD Work Phone: NOAI FNR FMStart: 03-21-2024 End: 22-60-9536Sxchdbkieran Gonzales MD Work Phone: NOMS FNR FMStart: 03-18-2024 End: 80-23-2637epptfaqijxUAIE [facility] Centertart: 03-05-2024 End: 54-92-4525Gthegnsul Result EncounterGeneric External Data ProviderNOMS External Department UnsolicitedStart: 03-05-2024 End: 27-91-2134Elqyqsift Result EncounterGeneric External Data ProviderNOMS External Department UnsolicitedStart: 03-04-2024 End: 45-15-7612rwkkxnzgnsZiwolus R WATERSFacility:EU BellevueStart: 03-04-2024 End: 86-51-9070Wqgkerh encounter procedureReji BROWER [facility] start: 02-01-2024 End: 79-89-4723Aldnvdjro Result EncounterGeneric External Data ProviderNOMS External Department UnsolicitedStart: 02-01-2024 End: 06-74-4424Dntbvbdjj Result EncounterGeneric External Data ProviderNOMS External Department UnsolicitedStart: 01-29-2024 End: 19-45-8185Jafzys outpatient visit 15 Renae Velez NP Work Phone: noms FNR FMComment on above:Herpes zoster with complication (Primary Dx); Type 2 diabetes mellitus without complications (CMS/HCC); Immunodeficiency, unspecified (CMS/HCC); Chronic systolic (congestive) heart failure (CMS/HCC); Chronic obstructive pulmonary disease, unspecified (CMS/HCC); Cardiomyopathy, unspecified (CMS/HCC)Start: 01-29-2024 End: 25-24-9828kmbghbadcfYHCAM KAMPFERNot AvailableStart: 01-29-2024 End: 29-87-2729qhrvotqvuaKwkuypj R WATERSFacility:EU BellevueStart: 01-29-2024 End: 10-29-1277Xrnhmmw encounter procedureReji BROWER [facility] Andreea start: 01-26-2024 End: 57-63-4696Noiokr outpatient visit 15 minutesSamarsha Agustin COLLAZO Work Phone: NOMS FNR FMComment on above:Encounter for immunization (Primary Dx); Tinea corporis; Type 2 diabetes mellitus without complications (CMS/HCC)Start: 01-26-2024 End: 31-58-6402akvxpxpmtbVRJPD KAMPFERNot AvailableStart: 01-25-2024 End: 31-55-5169Zwmtjmtyy Result EncounterGeneric External Data ProviderNOMS External Department UnsolicitedStart: 01-25-2024 End: 33-96-8665Hwvyhdtyt Result EncounterGeneric External Data ProviderNOMS External Department UnsolicitedStart: 01-11-2024 End: 89-49-2533russqdggeuTohokivg Talal SarminiFacility:FTMCStart: 01-11-2024 End: 76-32-1171Znpwfhg encounter procedureMuhammad Talal Sarmini [facility] Start: 12-28-2023 End: 44-32-9521Aruvexlap Result EncounterGeneric External Data ProviderNOMS External Department UnsolicitedStart: 12-28-2023 End: 02-08-1662Dwbociwuh Result EncounterGeneric External Data ProviderNOMS External Department UnsolicitedStart: 12-25-2023 End: 40-02-3397pocqgcfcjnZfvltsbz Talal SarminiFacility:[facility] DHStart: 12-25-2023 End: 18-44-9743Trbxhgt encounter procedureMuamador Carrie Cabakennedi [phone]-TjgwzAs[facility]ab[facility] Start: 12-08-2023 End: 76-24-8108GxcvhuKphvflqv Hohman MD Work Phone: NOAB FNR FMComment on above:History of kidney transplant ([facility])Start: 12-07-2023 End: 20-84-5592Fecpvplam Result EncounterGeneric External Data ProviderNOMS External Department UnsolicitedStart: 12-07-2023 End: 92-08-9783Fmlffjbbk Result EncounterGeneric External Data ProviderNOMS External Department UnsolicitedStart: 91-50-7839Hcyptpsyj Result Encounter Generic External Data ProviderNOMS External Department UnsolicitedStart: 71-14-1470Goemppzww Result EncounterGeneric External Data ProviderNOMS External Department UnsolicitedStart: 08-18-2022 End: 15-92-4960qscirmcxweUB DOCTOR MISCFacility:A6Bvlll: 07-19-2022 End: 22-80-5821ixlkiwkrdkCX DOCTOR MISCFacility:O9Vzsos: 06-01-2022 End: 02-13-9714rypbqnnbfgJC DOCTOR MISCFacility:B6Mkxuq: 05-30-2022 End: 06-53-7510bnkvlsjpcnZU AIME VILLASENORFacility:W0Vvjnc: 05-03-2022 End: 26-32-2880dxixipeohqJR DOCTOR MISCFacility:W3Drber: 04-14-2022 End: 80-78-5831wizivdxiyqSF DOCTOR MISCFacility:N6Fqold: 03-25-2022 End: 82-62-2839mqljesctikHK ROSA M Beckercility:B1Bomtp: 02-24-2022 End: 38-50-3230vxlqkhfkwkJO DOCTOR MISCFacility:A9Nzkaw: 01-17-2022 End: 20-33-0562Yrujegd encounter procedureReji BROWER [facility] start: 09-28-2021 End: 80-69-5463rvkbnoaaxxSR EHAB ELTAHAWYFacility:W6Dnrnt: 05-15-2021 End: 76-29-6267agmnejkxhdUSYWJUHF HOHMANFacility:[facility]ENTERtart: 94-54-5063Vesoqo outpatient visit 25 minutescesia Gonzales Work Phone: [phone]-Yyhmg [facility] 250 DO Work Phone: Start: 12-02-2020 End: 29-59-1310Ribaxojxda and management of inpatientSARMED MANSURFacility:[facility] Start: 12-01-2020 End: 48-57-1849Jflzmkaht department patient visitREFERRED SELFFacility:[facility] Start: 10-29-2020 End: 64-11-4155efbfhhdntcKRMGNXYO HOHMANFacility:[facility]ENTERtart: 08-02-2020 End: 72-65-4025Klnrhapyvr and management of inpatientANAS RENNOFacility:[facility] Procedures DateProcedureProcedure DetailPerforming ClinicianStart: 51-49-2915TAR CBC WITH AUTO DIFFGeneric External Data ProviderStart: 01-17-2025 End: 22-13-2962FBNYETPUOQW SKIN LESIONAvelina Rodriges MD Work Phone: Start: 30-68-9460DEMW REPAIRAvelina Rodriges MD Work Phone: Start: 91-15-2031XCPWKLBXHST SKIN LESIONAvelina Rodriges MD Work Phone: Start: 58-46-8302FJSW SURGERYAvelina Rodriges MD Work Phone: Start: 36-87-2360MYR CBC WITH AUTO DIFFGeneric External Data ProviderStart: 52-78-0105KFJ CBC WITH AUTO DIFFGeneric External Data ProviderStart: 11-04-2024 End: 59-29-1727GCAV / NAIL BIOPSYEmtony Fishman MD Work Phone: Start: 11-04-2024 End: 13-42-1253FFBVNDTMRJZ SKIN LESIONEmily Gabbi Fishman MD Work Phone: Start: 95-08-6136YR ECHO DOPPLER COMPLETEGeneric External Data ProviderStart: 89-58-0606PRD MAGNESIUMGeneric External Data ProviderStart: 88-30-9657CUA PHOSPHOROUSGeneric External Data ProviderStart: 95-12-0596NKJ URIC ACIDGeneric External Data ProviderStart: 43-52-9583QNB CMP (CMP) (FOR REMOTE [facility] USE)Generic External Data ProviderStart: 08-07-9330HWWGS BILIRUBIN, DIRECTGeneric External Data ProviderStart: 58-91-9668Rivopnwgra A1c/Hemoglobin.total in BloodRosa M Gonzales MD Work Phone: Start: 25-99-8231NNQ CBC WITH AUTO DIFFGeneric External Data ProviderStart: 16-48-2277HHT CBC WITH AUTO DIFFGeneric External Data ProviderStart: 96-12-1887HGTAZYRHFRV OF LESIONEmily Gabbi Fishman MD Work Phone: Start: 62-46-0317EPRN SURGERYThomas Ria Centeno MD Work Phone: Start: 15-05-3084ZAA HEMOGLOBIN D6NQlxqdsm External Data ProviderStart: 36-76-2007GPC CBC WITH AUTO DIFFGeneric External Data ProviderStart: 05-02-2024 End: 56-00-5671YMUF / NAIL BIOPSYEmily Gabbi Fishman MD Work Phone: Start: 09-13-1859IXHUNDFQSCU SKIN LESIONEmily Gabbi Fishman MD Work Phone: Start: 24-76-0009OOS CBC WITH AUTO DIFFGeneric External Data ProviderStart: 47-22-9753Ziwjwjowsd glycosylated v8aLqtnsinvRosa M Gonzales MD Work Phone: Start: 92-88-9284CFH CBC WITH AUTO DIFFGeneric External Data ProviderStart: 21-68-2712SQW CBC WITH AUTO DIFFGeneric External Data ProviderStart: 81-26-8850NxkklfkbhqyJnwod Kampfer NP Work Phone: Start: 20-34-3466QXNQ PSA, DIAGNOSTICGeneric External Data ProviderStart: 89-00-1215BlxveyrccvoIocuk Kampfer SALVAGE CUTTER Work Phone: Start: 17-27-2459JocumwcssdgUocduocv Sarmini Start: 96-54-2650NcecxmxuoinfchcukowuihmznwZjhjkdds Ishanmini Start: 22-46-1280XPL CBC WITH AUTO DIFFGeneric External Data ProviderStart: 77-89-8364Isvulyp of renal transplantMuhammad Talal Gertrudisi Start: 61-07-9087KO ECHO DOPPLER COMPLETEGeneric External Data ProviderStart: 61-62-5812HSVNGIOYXB (FK506), BLOODGeneric External Data ProviderStart: 31-72-4326Ynnqhvfny total nephrectomyReji BROWER Start: 33-27-4954Hclwvys of placement of stent in anterior descending branch of left coronary arteryStatus post insertion of drug- eluting stent into left anterior descending (LAD) artery for coronaryartery diseaseGeneric ProviderStart: 71-10-7904OAHUYZMGYMZJ OF OTHER GAS INTO RESP TRACT, VIA OPENINGSARMED MANSURStart: 08-22-9853AFZJJZIAG REMDESIVIR IN PERIP VEIN, PERC, NEW TECH 5OMAR N HORANIStart: 96-22-7297YCZEDJYHDTXA OF OTHER GAS INTO RESP TRACT, VIA OPENINGOMAR N HORANIStart: 69-08-9130Cuflvpv of renal transplantHistory of kidney transplantGeneric ProviderStart: 01-01-2018 Transplant of kidneyReji BROWER Comment on above:Pt has three kidneysStart: 02-01-2013 ColonoscopyGeneric ProviderBilateral vasectomyReji BROWER Cardiac catheterizationRosa M Gonzales Work Phone: ColonoscopyMuamador Graham Coronary artery bypass graftRosa M Gonzales Work Phone: Coronary artery bypass grafts x 3Patricrita BROWER Creation of graft fistula for dialysisRosa M Farrell Janet Work Phone: Extraction of wisdom toothRosa M Thorntonhman Work Phone: History of placement of stent for coronary artery diseaseHx of heart artery stentRosa M Gonzales MD Work Phone: Comment on above:Problem List clean-up per request of Phys. EHR CmteHistory of renal transplantRenal transplant recipientRosa M Farrell Janet Work Phone: History of renal transplantKidney transplanted( Confirmed )Reji BROWER History of renal transplantHistory of kidney transplant ([facility])Rosa M Gonzales MD Work Phone: History of renal transplantHistory of kidney transplant ([facility])Rosa M Gonzales MD Work Phone: History of renal transplantHistory of kidney transplant ([facility])Rosa M Gonzales MD Work Phone: History of renal transplantHx of kidney transplant Rosa M Gonzales MD Work Phone: Comment on above:2018History of renal transplantRenal transplant recipientRosa M Gonzales MD Work Phone: Comment on above:2018Insertion of pacemaker pulse generatorRosa M Farrell Janet Work Phone: Placement of stent in cardiac conduitReji BROWER Total colonoscopyRosa M Farrell Janet Work Phone: Transplant of kidneyRosa M Farrell Janet Work Phone: Plan of Treatment DateCare ActivityDetailAuthorStart: 29-10-9623Lbmfnjaea for malignant neoplasm of colonNOMS HealthcareStart: 09-83-6877Kpeufnvvv for malignant neoplasm of colonNOMS HealthcareStart: 06-19-2026Medicare Annual Wellness (AWV)Medicare Annual Wellness (AWV)NOMS HealthcareStart: 07-22-2025 End: 78-03-6025Horjnfz encounter khapymzwl26/07/2026 1:15 PM EDT Office [facility] [address] [place] [address] Alicia Fishman MD [address] [place] [address] [facility]ermatologyStart: 01-21-2025 End: 00-81-3541Ylqledkg Nehufeo9501/21/2025 11:00 AM EDT [facility] [address] [facility] [place] [address] NOBarlow Respiratory Hospitaltart: 01-17-2025 End: 49-17-8757Jqojosn encounter pvcidjcgc98/03/2025 12:15 PM EDT Office Visit [facility] [place] [facility] [address] [place], [id number] Avelina Rodriges MD [address] [place] [address] [facility]ermatologyStart: 01-03-2025 End: 68-69-1316Oteavwo encounter procedureNOMS Mejia DermatologyComment on above:ArrivedStart: 68-83-4306Etlkrollm vaccinationInfluenza Vaccine (#1)NOMS HealthcareStart: 99-44-1092Wiitsjimpy A1c measurementDiabetes: Hemoglobin A1C NOMS HealthcareStart: 12-03-2024 End: 79-76-3593Kroveln encounter obfjyyhim53/19/2025 2:00 PM EDT Office Visit [facility] [address] [place] [facility] [place] [phone] Rosa M Gonzales MD [address] [place], [place] [id number] [facility] MedicineComment on above:Arrived Start: 11-04-2024 End: 13-78-8990Znedtll encounter procedureNOMS SWS DERMComment on above:Arrived Start: 16-82-0391Pzkitwkj screeningDiabetes: Retinopathy ScreeningNOCA HealthcareStart: 10-03-2024 End: 20-10-4003Xykmsoi encounter procedureNOMS FNR FMComment on above:Arrived Start: 04-11-2025Medicare Annual Wellness (AWV)Medicare Annual Wellness (AWV) NOMS HealthcareStart: 06-19-2024 End: 29-45-2189Cpgnxxl encounter haauiszav16/05/2025 10:50 AM EST Procedure Visit [facility] [address] [place] [phone] Alicia Fishman MD [address] [place] [address] NOMS SWS DERMStart: 06-14-2024 End: 75-40-1978Oqrumyr encounter jnguvzidc04/28/2025 8:30 AM EST Office Visit [facility] [address] [place] [address] Efren Centeno MD [address] [place] [address] NOM[facility] SWS DERMStart: 30-36-0371Lsgtbiuicp A1c measurementDiabetes: Hemoglobin H1NQGCG HealthcareStart: 12-17-1495Oeksl screening for proteinDiabetes: Urine Protein ScreeningNOCA HealthcareStart: 05-02-2024 End: 16-58-9089Miqozam encounter procedureNOMS SWS DERMComment on above:Arrived Start: 03-21-2024 End: 94-20-5484Dbafbyq encounter kujwymvvj49/05/2024 3:30 PM EST Office Visit [facility] [address] [facility] [address] [phone] M Gonzales MD [address] [facility], [place] [id number] [facility] FNR FMComment on above:ArrivedStart: 13-68-0945Nvxbfqsqw vaccination Influenza Vaccine (#1)[facility] HealthcareStart: 07-25-2024Medicare Annual Wellness (AWV)Medicare Annual Wellness (AWV)[facility] HealthcareStart: 10-30-2023 End: 12-44-2676Vlqvjrs encounter xcjsnatzh84/15/2024 10:05 AM EDT Office Visit [facility] [address] [place] [address] Alicia Fishman MD [address] [place] [address] [facility] DERMStart: 70-72-7483Uuiinvduqs A1c measurementDiabetes: Hemoglobin R8ZHDOQ HealthcareStart: 93-84-7741Qlaxtzwkq for malignant neoplasm of colonNOCA HealthcareStart: 35-67-3180Bdoew screening for proteinDiabetes: Urine Protein ScreeningDEL[facility] HealthcareStart: 1960 Screening for malignant neoplasm of colonDELTA COMM[facility] HealthcareDermatopathology exam Dermatopathology exam Pathology and Cytology Timed Neoplasm of unspecified behavior of bone, soft tissue, and skin Release Upon Ordering for 1 Occurrences starting 05/02/2024[facility] Work Phone: comment on above:Release Upon Ordering for 1 Occurrences starting 05/02/2024Dermatopathology examDermatopathology exam Pathology and Cytology Timed Neoplasm of unspecified behavior of bone, soft ti ssue, and skin Release Upon Ordering for 1 Occurrences starting 11/04/2024[facility] Work Phone: comcplc on above:Release Upon Ordering for 1 Occurrences starting 11/04/2024 Immunizations Immunization DateImmunizationNotesCare XtndljgyFwayrxir36-13-8528pjjdfydyx, seasonal, injectable, preservative Bri Velez NP Work Phone: [facility] WashingtonTuzfzakdqs84-37-5306jleqqhcio virus vaccine, unspecified formulationAlicia Fishman MD Work Phone: [facility] WashingtonUdsqocrkji99-21-8892hxryzrluv virus vaccine, unspecified formulationRosa M Gonzales MD Work Phone: [phone]-TdvdgLutheran Hospital09-29-2023 influenza, injectable, quadrivalent, preservative freeGeneric [facility] HospitalCxfmardosx19-76-9280msxctuama virus vaccine, unspecified formulationMuhammad Sarmini 348-0748Lxscmq-UasyoLutheran Hospital09-29-2022 influenza, injectable, quadrivalent, preservative freeGeneric ProviderMercy Hospital WashingtonYgbkhkghgy49-16-5637Mgabvdj Bivalent Booster VaccinationGeneric [facility] HospitalFiuovlxoma74-55-6375Esxrufi SARS-CoV-2 50mcg/0.5mL BoosterGeneric [facility] HospitalIqoyxxjihs76-80-5686FVUS-DnI-3, UnspecifiedGeneric [facility] 98-21-0651YJTH-CoV-2 (COVID-19) mRNA-4633 vaccineMuhammad Sarmini 133-4060Gjvoct-LglfoAshtabula General Hospital Digestive [facility] HospitalComment on above:Result Comment: 2023-12-22: STU7788-86-6557wqdnrkagq virus vaccine, unspecified formulationMuhammad Sarmini 786-7649Edccvm-IcsnrLutheran Hospital10-18-2021 Seasonal, quadrivalent, recombinant, injectable influenza vaccine, preservative Ariadna Gonzales Work Phone: [phone]-VdxpeNorthland Medical Center 250 DO Work Phone: [phone] COVID-19 Vaccine 100 MCG/0.5ML Intramuscular SuspensionRosa M Gonzales Work Phone: [phone]-KpbvoAshtabula General Hospital Digestive [facility] HospitalComment on above:Result Comment: 2023-12-22: QKG1396-39-6611Ifptqsh COVID-19 Vaccine 100 MCG/0.5ML Intramuscular SuspensionRosa M Gonzales Work Phone: [phone]-SrxnuAshtabula General Hospital Digestive [facility] HospitalComment on above:Result Comment: 2023-12-22: EMO6496-70-5006Rqaslmv COVID-19 Vaccine 100 MCG/0.5ML Intramuscular SuspensionRosa M Gonzales Work Phone: [phone]-McjzbMercy [facility] HealthComment on above:Result Comment: 2023-12-22: XOF4629-18-2664aeqtkkjzc virus vaccine, unspecified formulationMuhammad Sarmini 145-8808Bqkmaz-QpbdmLutheran Hospital10-12-2020 influenza, seasonal, injectableJennifer R Janet Work Phone: [phone]-NfngvRed Wing Hospital And Clinic 856 DO Work Phone: [phone] virus vaccine, unspecified formulationMuhammad Sarmini 403-2633Gxmzcn-FvceeLutheran Hospital10-07-2020 Seasonal trivalent influenza vaccine, adjuvanted, preservative freeGeneric [facility] HospitalDfomikytww48-21-8497nvhjoxowv virus vaccine, unspecified formulationGagandeepnnifer R Janet Work Phone: [phone]-DimyrLutheran Hospital10-01-2020 influenza, seasonal, injectableGeneric [facility]10-22-2019 influenza virus vaccine, unspecified formulationMuhammad Sarmini 174-7405Genkdi-VxsxlLutheran Hospital10-22-2019 Seasonal, quadrivalent, recombinant, injectable influenza vaccine, preservative freeAnneifer R Janet Work Phone: [phone]-ItjllRed Wing Hospital And Clinic 097 DO Work Phone: [phone]m virus vaccine, unspecified formulationMuhammad Sarmini 104-7516Tubuvq-ZuvjmLutheran Hospital01-25-2019 influenza, injectable, quadrivalent, preservative freeGagandeepnnifer R Janet Work Phone: [phone]-AzyqdRed Wing Hospital And Clinic 791 DO Work Phone: [phone] virus vaccine, unspecified formulationMuhammad Sarmini 667-3133Qivoet-CrpzuLutheran Hospital11-02-2018 influenza, injectable, quadrivalent, preservative freeAnneifer R Janet Work Phone: [phone]-BjftmJo[place] [address] DO Work Phone: [phone]) [phone]mzqc virus vaccine, unspecified formulationMuhammad Sarmini 473-5092Mboyht-AprjeLutheran Hospital02-22-2018 influenza, injectable, quadrivalent, preservative freeGagandeepnnifer R Janet Work Phone: [phone]-FbkazJo[place] [address] DO Work Phone: [phone]ymubl virus vaccine, unspecified formulationMuhammad Sarmini 154-2050Pbhptf-PotbcLutheran Hospital09-01-2017 influenza, injectable, quadrivalent, contains preservativeRosa M Gonzales Work Phone: [phone]-TgpqnJo[place] [address] DO Work Phone: [phone]msrvc virus vaccine, unspecified formulationMuhammad Sarmini 039-9624Vbqosj-AgyuqLutheran Hospital10-14-2015 influenza, seasonal, injectableRosa M Gonzales Work Phone: [phone]-KqociJo[place] [address] DO Work Phone: [phone] SARS-CoV-2 VaccinationRosa M Gonzales MD Work Phone: [facility] WashingtonIovxtwgwbf04-27-2254oisnimnsz virus vaccine, whole virusRosa M Gonzales Work Phone: [phone]-VnojkJo[place] [address] DO Work Phone: [phone], wholeMuhammad Sarmini 595-5121Pqofzi-[facility] Digestive HealthNEGATED: Highlighted row has not occurred!17-57-3975elkhlgjyu virus vaccine, unspecified formulationXochilt Ishanmaryjo [phone]-Rqzcy [facility] Digestive Health Payers DatePayer CategoryPayerPolicy [id number] Health [id number] 2024Medicare (Managed Care)[facility] MEDICARE ADVANTAGE [id number] Health [id number] Health Insurance [id number] 2016Medicare [id number] 2..1.083695.3.57[id number] 2.0.1.550077.3.57[id number] 2.0.1.758681.3.57[id number] 2.0.1.672388.3.57[id number] 2.0.1.701893.3.57[id number] 2.16.840.1.326201.3.579.2.92578-34-1947Klojxzv9996945 2.16.840.1.307320.3.57[id number] 2.16.840.1.740730.3.579.2.07233-43-7771Xqflvzw8839005 2.16.840.1.279224.3.579.2.9[id number] 2.16.840.1.645239.3.579.2.8[id number] 2.16.840.1.095502.3.57[id number] 2.16.840.1.585724.3.579.[id number] 2.16.840.1.726871.3.579.2.18376-52-6400Kuzfauw1443551 2.16.840.1.805979.3.579.[id number] 2.16.840.1.865982.3.579.2.[id number] 2.16.840.1.985126.3.57[id number] 2.16.840.1.546839.3.57[id number] 2.16.840.1.354875.3.57[id number] 2.16.840.1.821135.3.579.2.3[id number] 2.16.840.1.558126.3.579.2.56[id number] 2.16.840.1.114582.3.57[id number] 2.16.840.1.632132.3.579.[id number] 2.16.840.1.435783.3.579.2.218935-51-6798Idpdpyc43632999 2.16.840.1.700522.3.579.2.909144-93-3414Jqjuhvb6294393 2.16.840.1.579206.3.579.2.963569-38-7787Ghrecva8190166 2.16.840.1.639551.3.579.2.761770-48-7702Bfgoohw5238071 2..840.1.416290.3.579.2.570401-05-7855Tsdkgan7139561 2.16.840.1.133905.3.579.2.685029-65-6668Fsduubg7207401 2.16.840.1.709632.3.579.2.852777-13-0767Ctxdtxx0287107 2..840.1.937350.3.579.2.1259 [id number] 1960Private Health [id number] 442xaaa1-7t21-1z28-37r6-z465j1gb063a Social History DateTypeDetailFacilityStart: 11-01-2022 End: 15-40-5584Vw alcohol useNo alcohol useNOMS HealthcareComment on above:1-2 cups of coffee daily.;Quit in 2008;Start: 01-01-2020 End: 03-61-1096Mqpgtah smoking statusEx-smoker (finding)[facility] start: 11-01-2022 End: 09-82-5293Zhb Assigned At BirthMaleExec[facility] End: 83-87-7033Tkmdglk of tobacco useCurrent smokerNOMS Healthcare End: 02-24-4501Jdurnon of tobacco useCigarette SmokerNOCA HealthcareStart: 11-06-2022 End: 82-80-4422Slaymiq use and exposureSmokeless tobacco non-userNOMS Healthcare Start: 05-01-2023 End: 54-61-5322Woorpvg intakeEx-drinker (finding)NOMS HealthcareWithin the last year, have you been afraid of your partner or ex-partner?NoNOMS HealthcareDo you belong to any clubs or organizations such as buddhist groups, unions, frawripl or athletic groups, or school groups?YesNOMS HealthcareAre you now , , , , never or living with a partner?MarriedNOMS HealthcareHow often to you have a drink containing alcohol?Monthly or lessNOMS HealthcareHow many standard drinks containing alcohol do you have on a typical day?1 or 2NOMS HealthcareHow often do you have 6 or more drinks on 1 occasion? NeverNOCA HealthcareStart: 66-28-4545Src hard is it for you to pay for the very basics like food, housing, medical care, and heatingNot hard at allNOCA HealthcareDo you feel stress - tense, restless, nervous, or anxious, or unable to sleep at night because yourmind is troubled all the time - these days [OSQ] Not at allNOMS Healthcare(I/We) worried whether (my/our) food would run out before (I/we) got money to buy more.Never trueNOCA HealthcareStart: 02-16-2023 Alcohol CommentCaffeine intake : 1-2 cups per dayNOCA HealthcareStart: 40-47-6635Lah Assigned At BirthNot on fileNOCA HealthcareStart: 89-74-8906Eqrfzi identityIdentifies as male gender (finding)[facility]OMS HealthcareSexMale (finding) [facility] Hospitaltart: 17-08-1406Yfl Assigned At [facility] Medical Equipment Procedure CodeEquipment CodeEquipment Original TextEquipment IdentifierDates Insertion, pacemakerEndocardial pacing lead ()[id number] FDAStart: 90-58-1996Sasnlxamj, pacemakerEndocardial defibrillation lead ()[id number] FDAStart: 33-68-5496Jikkmzdfj, pacemakerDual-chamber implantable defibrillator ()[id number] FDAStart: 23-77-987518504852Runrw: 10-03-2024 End: 18-15-0681Iyvtaps artery closure plug/patch, synthetic polymer ()[id number] FDAStart: 12-09-2020 Functional Status BspqRvvfxmshlgKlrydbHheajifn76-21-9754Rxyqsob Health Questionnaire 2 item (PHQ- 2) [Reported][facility] WashingtonGvztyyfweg50-51-9286Eejeqkn Health Questionnaire 2 item (PHQ- 2) [Reported][facility] WashingtonMxdjhypkhx81-08-2753Apqpdebemu StatusN/AExec[facility]09-26-2024Functional StatusN/[facility]09-09-2024Functional StatusN/[facility] Digestive Eyuizd74-30-3264Idcgzzlpwo StatusN/AExec[facility] Clinical Notes 08-20-2020 to 01-17-2025 Note Date & UzdaAsehLrtyjhdo49-14-5918 History of Present illness Narrative* Avelina Rodriges MD - 01/17/2025 10:15 AM EDT Images from the original note [...] Performed: sutures places by urgent care in [place] after injury to finger 2 weeks ago [...] limited to risks of scarring, darker or sweet pickle maker pigmentary changes, recurrence, incomplete removal and infection. [...] 2. SEBORRHEIC KERATOSIS, INFLAMED Right Occipital Scalp Nubieber and brown stuck on verrucous scaly papule [...] limited to risks of scarring, darker or sweet pickle maker pigmentary changes, recurrence, incomplete removal and infection. [...] 6 months skin exam documented in this encounterMercy Hospital WashingtonXxrruzuhqb25-56-5419 History of Present illness Narrative* Avelina Rodriges MD - 01/03/2025 8:30 AM EDT Images from the original note [...] OF SCALP AND NECK Right Parietal Scalp Nubieber macule at biopsy site, 1.2 x 1.2 cm Mohs surgery Consent obtained: written (The rationale for Mohs as well as the risks, benefits, and alternatives.The risks of infection, scarring, bleeding, prolonged wound healing, incomplete removal, allergy toanesthesia or meds, nerve injury, and recurrence were addressed.) Portia Protocol: Procedure explained and questions answered to [...] sodium bicarbonate Procedure Details: Biopsy accession number: [id number] Biopsy lab: [facility] Frozen section biopsy performed: Yes [...] in a sterile fashion, and infiltrated with localanesthetic. Sterile technique was used throughout the procedure. The marked area of clinical tumor with a small rim of clinically normal surrounding skin was removed using Mohs technique with bevelededges. Hash banks were placed for orientation of [...] dressing placed as in Stage 1. The patientwas escorted to the waiting area. As with [...] limited to risks of scarring, darker or sweet pickle maker pigmentary changes, recurrence, incomplete removal and infection. [...] follow up and biopsy documented in this [facility]08-20-2025 Telephone encounter Note* Telephone Encounter - Rosa M Gonzales MD - 12/04/2024 5:08 PM EDT Refills sent. [facility] WashingtonUhdlxhaddz26-28-8983 Miscellaneous Notes* Telephone Encounter - Rosa M Gonzales MD - 12/04/2024 5:08 PM EDT Refills sent. documented in this [facility]08-19-2025 History of Present illness Narrative* Rosa M Gonzales MD - 12/03/2024 2:00 PM EDTAssociated Problem(s): Gastroesophageal reflux disease The nitroglycerin may be easing some esophageal spasm when he takes it. Does not seem to be cardiacissues. Dr Santiago is comfortable with his use of NTG. * Rosa M Gonzales MD - 12/03/2024 2:00 PM EDT Subjective [...] which sometimes helps and sometimes does not. Roberto takes nitroglycerin, which provides some relief. He [...] Would rather not change cardiac medications yet [facility] he has been doing so well. Will [...] using nitroglycerin as needed. documented in this encounterMercy Hospital WashingtonBgfsfqytsc94-36-5217 History of Present illness Narrative* Alicia Fishman MD - 11/04/2024 9:45 AM EDT Images from the original note were not included. Skin Check Location: Patient requests a skin examination from the waist up Dermatologic history: history of Actinic Keratosis, history of Basal Cell Carcinoma, history of Squamous Cell Carcinoma (history of kidney transplant) Last visit: 6 months ago- last skin exam Last visit: 06/14/24 Mohs to left rastafarian SCC and 06/19/24 forED&C BCC on the [...] limited to risks of scarring, darker or sweet pickle maker pigmentary changes, recurrence, incomplete removal and infection. [...] TISSUE, AND SKIN (4) Right Parietal Scalp Nubieber pearly papule Lesion biopsy Type of biopsy: [...] 1.2 x 1.0 cm Right Preauricular Area Nubieber scaly plaque Lesion biopsy Type of biopsy: [...] Scalp, RightLower Back (2), Right Preauricular Area Nubieber and brown stuck on verrucous scaly papule [...] limited to risks of scarring, darker or sweet pickle maker pigmentary changes, recurrence, incomplete removal and infection. [...] Next Visit: 6 months documented in this encounterMercy Hospital WashingtonQujxdpnqqq81-38-8523 NoteTransplant Clinic Patient : Vishal Duke; 63 y.o. Reason for Visit: History of renal transplant. SUBJECTIVE: History Of Present Illness: Patient is a 63-year-old male with a history of end-stage renal disease (related to PKD, status post bilateral upper sioux nephrectomies and 01/2023), who is status post DDRT on 08/15/[address] Marquez. CMV +/-. Notable history of CT/cardiac arrest/implanted ICD in 2020 Patient returns regarding [...] the above HPI Chart Reviewed Historical: >>>>>>>>>>>>>>>>>>>>>>>>>>>>>>>>>>>>>>>>>>>>>>>>>>>>>>>>>>>>>>>> 04/11/24 Patient return for post transplant follow [...] on aug 16 2017 , uncomplicated. Hx; CT and had Pacer/Defib Placed. Pt following up [facility] cardiology Pt inpatient for ruptured renal [...] +/-. Patient has recent history of an CT and had Pacer/Defib Placed. Patient here for follow up Nephrectomy Patient states he is feeling good with a 21 pound weight loss since bilat upper sioux kidney's removed. He states that he currently [...] prevention discussed -Incision He (more content not included)...[facility] Chief Complaint: [...] before he had a V-fib arrest at [facility]. He has not felt his [...] nitroglycerin (Nitrostat) 0.4 mg (more content not included)...[facility]06-19-2025 Telephone encounter Note* Telephone Encounter - Jackie Remy - 10/03/2024 3:56 PM EDT [facility] [place] [facility] rx for test strips and lancets. How many do you want them to dispense and how many refills? They will take a verbal [phone]. Thank you. [facility]. [facility] HospitalItenlxwamu05-95-6737 Miscellaneous Notes* Telephone Encounter - Jackie Remy - 10/03/2024 3:56 PM EDT [facility] [place] [facility] rx for test strips and lancets. How many do you want them to dispense and how many refills? They will take a verbal [phone]. Thank you. documented in this encounterMercy Hospital WashingtonQbyhrygaum40-71-2990 History of Present illness Narrative* Rosa M Gonzales MD - 10/03/2024 11:30 AM EDTAssociated Problem(s): Chronic obstructive pulmonary disease (HCC) This has been very stable. * Rosa M Gonzales MD - 10/03/2024 11:30 AM EDTAssociated Problem(s): Chronic systolic congestive heart failure (HCC) No signs of fluid overload. Echo with EF of 35% 08/07. Doing great. Still has occasional dyspnea or pain. Cardio is happy with where he is at present. * Rosa M Gonzales MD - 10/03/2024 11:30 AM EDTAssociated Problem(s): End-stage renal disease (HCC) S/P Transplant. * Rosa M Gonzales MD - 10/03/2024 11:30 AM EDTAssociated Problem(s): Post-COVID chronic dyspnea * Rosa M Gonzales MD - 10/03/2024 11:30 AM EDTAssociated Problem(s): Essential hypertension * Rosa M Gonzales MD - 10/03/2024 11:30 AM EDTAssociated Problem(s): PKD (polycystic kidney disease) * Rosa M Gonzales MD - 10/03/2024 11:30 AM EDTAssociated Problem(s): Stage 3 chronic kidney disease (CMS-HCC) * Rosa M Gonzales MD - 10/03/2024 11:30 AM EDTAssociated Problem(s): History of kidney transplant (HCC) Follows with transplant team. * Rosa M Gonzales MD - 10/03/2024 11:30 AM EDT Subjective Patient ID: Vishal Duke is a [...] at all Patient Health Questionnaire-9 Score: 0 Whit Fall Risk History of Falling, Immediate or Within 3 Months: No Secondary Diagnosis: No Ambulatory Aid: Walks without aid/bedrest/nurse assist Intravenous Therapy/Heparin Lock: No Gait/Transferring: Normal/bedrest/immobile Mental Status: Oriented to own ability Whit Fall Risk Score: 0 Health Risk Assessment [...] Yes Vision Screening: Yes, patient sees regular buck swamper/coal hiker Hearing Screening: Yes, concerned about hearing loss [...] He recently returned from a vacation in [place], during which he experienced difficulty breathing in [...] healthy, he has discontinued visits to the cartridge assembler. He finds some relief from inhalers and monitors his oxygen levels at home, which typically range from 95 to 96 percent. He also reports occasio nal leg swelling, particularly in hot weather, but did not experience this during his recent trip to [place]. He has been experiencing frequent dizziness, which he attributes to either low blood pressure or high blood sugar levels. His diesel technician mechanic recently conducted an EKG, which yielded normal [...] is currently on Jardiance, prescribed by his diesel technician mechanic, and undergoes monthly lab tests ordered by his dynamometer repairer due to a kidney transplant. His A1c [...] independence. Living will and durable power of corporate attorney reviewed. Updated patient problem list and [...] at present. Essential hypertension End-stage renal disease ([facility]) S/P Transplant. PKD (polycystic kidney disease) Stage 3a chronic kidney disease ([facility]) History of kidney transplant ([facility]) Follows with transplant team. Dizziness Being evaluated by cardiology. Type 2 diabetes mellitus with diabetic cataract ([facility]) Type 2 diabetes mellitus with diabetic polyneuropathy ([facility]) Orders: Blood Glucose Monitoring Suppl (Blood Glucose Monitor System) w/Device kit; Use daily or as directed for monitoring of diabetes. Also dispense test strips and lancets of insurance choice. Cardiomyopathy, unspecified ([facility]) Assessment & Plan 1. Dyspnea. - Reports [...] diabetes. - Currently on Jardiance, prescribed by diesel technician mechanic, which also helps manage blood sugar. - No additional medications will be added at this time. - Advised to inform buck swamper about elevated blood sugar levels during next [...] documented during this visit. documented in this encounterMercy Hospital [id number] [facility]AD[facility] Note Chief [...] before he had a V-fib arrest at [facility]. He has not felt his [...] arm, Patient Position: Sit (more content not included)...[facility]03-05-2025 History of Present illness Narrative* Alicia Fishman MD - 06/19/2024 10:50 AM EST Images from the original note were not [...] other part of trunk Left Upper Back Nubieber macule at biopsy site Destr of lesion Complexity: simple Destruction method: electrodesiccation and curettage Informed consent: discussed and consent obtained Informed consent comment: The risks of the procedure were discussed, including, but not limited to risks of scarring, darker or sweet pickle maker pigmentary changes, recurrence, infection, and incomplete removal [...] instructions were given verbally and in writing. Theoffice will be contacted if the lesion fails to resolve despite treatment, or if a side effect develops such as abnormal crusting, scabbing, reddness, discharge, or tenderness. Additional details: Amount of lidocaine used: 2.0 cc Previous accession number: [id number] Emphasized to return to clinic for any signs of recurrence prior to next visit. Next Visit: as scheduled documented in this encounterMercy Hospital WashingtonEiefapipfi96-26-9419 History of Present illness Narrative* Efren Centeno MD - 06/14/2024 8:30 AM EST Images from the original note were not included. Mohs Surgery Location: Left rastafarian Date of biopsy: 05/02/2024 Diagnosis: Squamous Cell Carcinoma All pertinent medical history, medications, and allergies were reviewed. General Exam: alert, oriented to person, place, and time, normal affect, well appearing A focused exam completed based on patient reported problems, see below: 1. 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 Left Mormonism Erythematous macule at the biopsy site. Mohs surgery Consent obtained: written (The rationale for Mohs as well as the risks, benefits, and alternatives.The risks of infection, scarring, bleeding, prolonged wound healing, incomplete removal, allergy toanesthesia or meds, nerve injury, and recurrence were addressed.) Portia Protocol: Procedure explained and questions answered to [...] sodium bicarbonate Procedure Details: Biopsy accession number: [id number] Biopsy lab: [facility] Date of biopsy: 05/02/2024 Frozen section biopsy performed: Yes Specimen debulked: No Pre-Op diagnosis: squamous cell carcinoma MohsAIQ Surgical site (if tumor spans multiple areas, please select predominant area): rastafarian Surgery side: left Surgical site (from skin [...] lab where it was chromacoded and processed. Mohssections were prepared with serial tissue sections, stained, [...] and were reviewed with the patient. A follow- up appointment was made, and instructions were given to follow-up sooner if necessary. Next visit: 06/19/2024, ED&C documented in this encounterMercy Hospital WashingtonOafxvsjauy40-21-8393 NoteReviewed over the phone with Dr. Basurto patients outside labs hemoglobin 16.7 and hematocrit 51, and TAC level 8.3. Current IS tacrolimus IR 0.5 mg BID. New orders for phlebotomy, remove 500 and give 500 ml NS IV. Will watch TAC level for now, no dose changes. Updated patient to the above, verbalized understanding. Will come to [facility] to have this done, aware BOP will call to schedule.[facility]01-16-2025 History of Present illness Narrative* Alicia Fishman MD - 05/02/2024 10:50 AM EST Images from the original note were not [...] limited to risks of scarring, darker or sweet pickle maker pigmentary changes, recurrence, incomplete removal and infection. [...] 0.7 x 0.7 cm Left Upper Back Nubieber scaly plaque Lesion biopsy Type of biopsy: [...] Next Visit: 6 months documented in this encounterMercy Hospital WashingtonDwkgfmwgpf62-84-3115 NoteTransplant Clinic Patient : Vishal Duke; 63 y.o. Reason for Visit: History of renal transplant. SUBJECTIVE: History Of Present Illness: Patient is a 63-year-old male with a history of end-stage renal disease (related to PKD, status post bilateral upper sioux nephrectomies and 01/2023), who is status post DDRT on 08/15/[address] Marquez. CMV +/-. Notable history of CT/cardiac arrest/implanted ICD in 2020 Patient returns regarding [...] on aug 16 2017 , uncomplicated. Hx; CT and had Pacer/Defib Placed. Pt following up [facility] cardiology Pt inpatient for ruptured renal [...] +/-. Patient has recent history of an CT and had Pacer/Defib Placed. Patient here for follow up Nephrectomy Patient states he is feeling good with a 21 pound weight loss since bilat upper sioux kidney's removed. He states that he currently [...] any transplant-pertaining questions, con (more content not included)...[facility]12-05-2024 History of Present illness Narrative* Rosa M Gonzales MD - 03/21/2024 3:30 PM EST Images from the original note were not [...] 2 to 3 tablets as needed. He hasrecently completed a course of steroids and was prescribed pain medication, which he found ineffective. He has been dealing with this condition for approximately 6 to 8 weeks. He recalls that during the initial phase, he was unable to tolerate touch or determine water temperature during showers. Heal notes that exposure to cold wind exacerbates his symptoms. He expresses concern about the potential for another episode of shingles and is considering getting the shingles vaccine. He saw his diesel technician mechanic on Monday. His ejection fraction is up to 50%. He was advised not to engagein strenuous activities such as running or snow blowing. He was told that his condition is improving because the blockage is not worsening. He was put on Jardiance and was advised not to stop taking it. He has not had any issues with his blood sugar being high, except when he is in the [facility] and receives steroids. He is not diabetic. [...] been using CeraVe and calamine lotion for symptomaticrelief. He does not feel the need for additional pain medication at this time. He was advised to consult with his dynamometer repairer regarding the administration of the Shingrix vaccine. 2. Cardiac issues. He saw his diesel technician mechanic on Monday. His ejection fraction is up to 50%. He was advised not to engagein strenuous activities such as running or snow blowing. He was put on Jardiance and was advised not to stop taking it. He has not had any issues with his blood sugar being high, except when he is [facility] for surgeries and receives steroids. He is not diabetic. Assessment/Plan Problem List Items Addressed This Visit None Visit Diagnoses Herpes zoster without complication - Primary Elevated fasting glucose Relevant Orders Hemoglobin A1c (Completed) documented in this encounterMercy Hospital WashingtonSjoujqplbf73-20-3503 [facility] Note Chief Complaint: [...] RRR. No murmur, (more content not included)... [facility]11-18-2024 Hospital Discharge instructions Patient Education 03/04/2024 15:01:44 Benign Prostatic Hyperplasia Benign Prostatic Hyperplasia Benign prostatic hyperplasia (BPH) is an enlarged prostate gland that is caused by the normal agingprocess. The prostate may get bigger as a man gets older. The condition is not caused by cancer. The prostate is a walnut-sized gland that is involved in the production of semen. It is located in front of the rectum and below the bladder. The bladder stores urine. The urethra carries stored urine ou t of the body. An enlarged prostate can press on the urethra. This can make it harder to pass urine. The buildup of urine in the bladder can cause infection. Back pressure and infection may progress to bladder damage and kidney (renal) failure. What are the causes? This condition is part of the normal aging process. However, not all men develop problems from thiscondition. If the prostate enlarges away from the [...] urethra. Follow these instructions at home: Take yewy-pdb-fwzdreo and prescription medicines only as told by [...] provider. Document Revised: 10/20/2021 Document Reviewed: 10/20/2021 [employer] Patient Education 2023 [employer] Follow Up Care 01/29/2024 08:18:27 With:LEONARDA FRANK, Reji Farrell, URL Address: [facility] [address] , [place] [address]- [phone] When: Unknown Comments:2 yrs w/ PSA [facility] 11-18-2024 NotePatient Education Urology Benign Prostatic Hyperplasia Benign prostatic hyperplasia (BPH) is an enlarged prostate gland that is caused by the normal agingprocess. The prostate may get bigger as a man gets older. The condition is not caused by cancer. The prostate is a walnut-sized gland that is involved in the production of semen. It is located in front of the rectum and below the bladder. The bladder stores urine. The urethra carries stored urine ou t of the body. An enlarged prostate can press on the urethra. This can make it harder to pass urine. The buildup of urine in the bladder can cause infection. Back pressure and infection may progress to bladder damage and kidney (renal) failure. What are the causes? This condition is part of the normal aging process. However, not all men develop problems from thiscondition. If the prostate enlarges away from the [...] this procedure, a tool is inserted through theopening at the tip of the penis (urethra). [...] procedure uses radio frequencies to destroy and removea small amount of prostate tissue. ? Interstitial laser coagulation (ILC). This procedure uses a laser to destroy and remove a small amount of prostate tissue. ? Transurethral electrovaporization (TUVP). This procedure uses electrodes to destroy and remove a small amount of prostate tissue. ? Prostatic urethral lift. This procedure inserts an implant to push the lobes of the prostate awayfrom the urethra. Follow these instructions at home: ??? Take dnlf-ize-cjlctxs and prescription medicines only as told by [...] symptoms do not get (more content not included)...[facility] NoteThe patient had a testosterone level of 136 on 02/01/2024. His name was added to the low testosterone list for the month of January 2024.[facility]10-18-[address]ola jain, patient notified to increase fluids to hydrate well and recheck standing lab order in 2 weeks due to elevated creatinine and Hgb of 17.0. Patient also advised he is currently being treated for shingles and will finish antibiotic on Monday. He states shingle starting to dry up now. He will let us know if anything changes and they aren't healing.[facility]10-14-2024 History of Present illness Narrative* Nicki Velez, SALVAGE CUTTER - 01/29/2024 3:00 PM EDT Vishal Duke is a 63 y.o. male [...] (CMS/HCC) Managed by cardiology documented in this encounterMercy Hospital WashingtonCesinkkyax40-08-4115 History of Present illness Narrative* Nicki Velez NP - 01/26/2024 12:00 PM EDT Images from the original note were [...] camacho. Started after he was working outside, [place] SUBJECTIVE: MEDICATIONS: Current Outpatient Medications Medication Instructions [...] -Stable with lifestyle modifications documented in this encounterMercy Hospital WashingtonJsflegtbvl90-08-0178 Evaluation + Plan note Extracted from:Title:ANES Post-operative Note - GeneralAuthor:Ivan Orozco Jr., DOate:01/11/24 Plan Transfer/Discharge: Transfer/Discharge Discharge when meets criteria ( From PACU to Ambulatory Surgery Unit, and To home ). Extracted from:Title:1Preop H&PAuthor:Xochilt Graham MDalDate:01/11/24 Impression and Plan Impression: Screening for colon cancer, history of hyperplastic polyps, GERD Plan: -EGD and Colonoscopy Extracted from:Title:ANES Pre-operative Note - EndoAuthor:Ivan Orozco Jr., DOate:01/11/24 Plan [place] [employer]hesi[employer] (ASA) physical status classification: Class III. Anesthetic Preoperative Plan: Anesthesia General, and -TIVA. Future Appointments Appointment Date:01/29/2024 10:30:00 AM Scheduled Provider:Reji BROWER MD Location:[facility] Appointment Type:URO Office Visit [facility] 09-26-2024 Hospital Discharge instructions Patient Education 01/11/2024 [...] reduce GERD symptoms. Medicines. These may include: ?Iskg-qlu-wetbhap antacids. ?Medicines that make your stomach empty [...] may include: ?Fatty foods, like fried foods. ?Cottle fruits, like oranges or lemon. ?Other foods [...] Do not drink alcohol. General instructions Take nkjc-dmv-vlxeakn and prescription medicines only as told by [...] provider. Document Revised: 05/31/2022 Document Reviewed: 05/31/2022 [employer] Patient Education 2023 [employer] 01/11/2024 10:20:44 Endoscopy, Care After Procedure [facility] Endoscopy Care After Procedure Please read the instructions outlined below and refer to this sheet in the next few weeks. These discharge instructions provide you with general information on caring for [facility] Your doctor may also give you specific [...] blood. Document Released: 11/15/2004 Document Re-Released: 09/25/2006 [employer] Patient Information 2010 [employer]. 01/11/2024 10:20:35 Colon Polyps Colon Polyps Colon [...] hard liquor (44 mL). General instructions Take mmfk-pve-vvxduqt and prescription medicines only as told by [...] provider. Document Revised: 07/22/2020 Document Reviewed: 07/22/2020 [employer] Patient Education 2023 [employer] 01/11/2024 10:20:34 Colonoscopy, Care After Surgery Salam [...] Care 12/25/2023 10:22:05 With:Gladys FRANK, JIN Saez, [facility] Address: When: Unknown Comments:Call for any problems. Office will call to schedule follow up appointment [facility] 09-26-2024 NoteProgress Note-Physician Patient: VISHAL DUKE Age: 63 years Sex: Male : 1960 Associated Diagnoses: None Author: Ivan Orozco Jr., DO Postoperative Information Postoperative disposition: Postoperative disposition: Home. Optimetrix number: Optimetrix number [id number]. Anesthetic utilized: General. Physical Examination Vital Signs [...] to Ambulatory Surgery Unit, and To home ).[facility] HospitalComment on above:Result Comment: Electronically Signed By: Ivan Orozco Jr., DO\.br\Date and Time Signed: 01/11/24 11:27 [id number] NoteEndoscopic Procedure Report - Other Patient: VISHAL DUKE Age: 63 years Sex: Male : 1960 Associated Diagnoses: None Author: Xochilt Graham MD Pre-Procedure Procedure Date 01/11/2024 10:26:00 . Procedure Type: Colonoscopy with removal of tumor(s), polyp(s), or other lesion(s) by cold snare technique. Procedure provider Performed by Xochilt Graham MD. Current history and physical Reviewed. Kidney transplant ([id number]) on 01/01/2018 at 57 Years. Comments: 01/01/2020 12:00 EDT - Justin Leia LONG Pt has three kidneys Placement of stent in cardiac conduit ([id number]). Triple coronary bypass (038783506). Bilateral vasectomy (249278854). Colonoscopy ([id number]).. Past Medical History No active or resolved past medical history items have been selected or recorded.. Family History Alzheimer's disease Mother . Procedure History Kidney transplant ([id number]) on 01/01/2018 at 57 Years. Comments: 01/01/2020 12:00 EDT - JustinLeia ferreira MA Pt has three kidneys Placement of stent in cardiac conduit ([id number]). Triple coronary bypass (343263951). Bilateral vasectomy (375620749). Colonoscopy (253893552).. Colorectal neoplasm risk assessment High risk Previous [...] bedtime), # 90 tab(s), Refills(s) 0, Pharmacy: [facility], 177.8, cm, 12/25/23 9:23:00 EDT, Height/Length [...] Normal examined terminal ileum Images Procedure images: Rec1_hd_video_2024___21_094.jpg Rec1_hd_video_2023__T09_14_07_725.jpg Rec1_hd_video_09_13_15_291.jpg Rec1_hd_video_2023__T09_11_28_356.jpg Rec1_hd_video_2023__T09_11_20_920.jpg Rec1_hd_video_2023__T09_10_48_698.jpg Rec1_hd_video_2023__T09_08_29_068.jpg Rec1_hd_video_2023__T09__28_957.jpg Rec1_hd_video_2023_T09_05_36_358.jpg (Inserted Image. Unable to dis (more content not included)...[facility] HospitalComment on above:Result Comment: Electronically Signed By: Xochilt Graham MD\.br\Date and Time Signed: 01/11/24 10:28 EDTOther Comment: Missing Attachment - attachment storage system not supported [id number] Can be viewed in source systemMissing Attachment - attachment storage system not supported [id number] Can be viewed inshardtner medical centerce systemMissing Attachment - attachment storage system not supported [id number] Can be viewed in source systemMissing Attachment - attachment storage system not supported [id number] Can be viewed in so ce systemMissing Attachment - attachment storage system not supported [id number] Can be viewed in source systemMissing Attachment - attachment storage system not supported [id number] Can be viewed in source systemMissing Attachment - attachment storage system not supported [id number] Can be viewed in source systemMissing Attachment - attachment storage system not supported [id number] Can be viewed in source systemMissing Attachment - attachment storage system not supported [id number] Can be viewed in sourcesystemMissing Attachment - attachment storage system not supported 0543435 Can be viewed in source systemMissing Attachment - attachment storage system not supported [id number] Can be viewed in source sy stemMissing Attachment - attachment storage system not supported [id number] Can be viewed in source systemMissing Attachment - attachment storage system not supported [id number] Can be viewed in source [id number] NotePatient Education - Text Endoscopy Care After Procedure Please read the instructions outlined below and refer to this sheet in the next few weeks. These discharge instructions provide you with general information on caring for [facility] Your doctor may also give you specific [...] Document Re-Released: 09/25/2006 ExitCare? Patient Information ?2009 [employer]. Colonoscopy Care After Surgery Please read the instructions outlined below and refer to this sheet in the next few weeks. These discharge instructions provide you with general information on caring for [facility] Your doctor may also give you specific [...] weakness can develop ove (more content not included)...[facility]09-26-[facility] NoteEndoscopic Procedure Report - Other Patient: [...] normal examined duodenum Images Procedure images: Rec1_hd_video_2023__T08_45_16_915.jpg Rec1_hd_video_2023_T08_45_23_273.jpg Rec1_hd_video_2023__T08_45_03_184.jpg Rec1_hd_video__T08_44_52_949.jpg Rec1_hd_video__T08_43_34_038.jpg Rec1_hd_video__T08_43_22_197.jpg Rec1_hd_video_2023__T08_43_03_991.jpg Rec1_hd_video__T08_42_47_702.jpg Rec1_hd_video__T08_41_40_816.jpg Rec1_hd_video_2023__T08_41_35_166.jpg Rec1_hd_video__T08_41_25_447.jpg . Post-Procedure Complications: none. Estimated blood [...] follow in GI clinic in 1-2 after dischargeRiverside Methodist HospitalComment on above:Result Comment: Electronically Signed By: Gladys FRANK, Xochilt Butler\.br\Date and Time Signed: 01/11/24 09:38 EDTOther Comment: Missing Attachment - attachment storage system not supported [id number] Can be viewed in source system Missing Attachment - attachment storage system not supported [id number] Can be viewed in source systemMissing Attachment - attachment storage system not supported [id number] Can be viewed in source systemMissing Attachment - attachment storage system not supported [id number] Can be viewed in source systemMissing Attachment - attachment storage system not supported [id number] Can be viewed in source systemMissing Attachment - attachment storage system not supported [id number] Can be viewed in source systemMissing Attachment - attachment storage system not supported [id number] Can be viewed in source systemMissing Attachment - attachment storage system not supported 9379205 Can be viewed in source system Missing Attachment - attachment storage system not supported [id number] Can be viewed in source systemMissing Attachment - attachment storage system not supported [id number] Can be viewed in source systemMissing Attachment - attachment storage system not supported [id number] Can be viewed in source [phone] NoteHistory and Physical Patient: VISHAL DUKE Age: [...] bedtime), # 90 tab(s), Refills(s) 0, Pharmacy: [facility], 177.8, cm, 12/25/23 9:23:00 EDT, Height/Length [...] BPH with urinary obstruction / SNOMED CT 5763454336 / Confirmed Hypertension / SNOMED CT 2948858609 / Confirmed Renal failure / SNOMED CT 82108267 / Confirmed polycystic kidney disease / SNOMED CT 452592438 / Confirmed Hyperlipidemia / SNOMED CT 44105567 / Confirmed Microhematuria / SNOMED CT 529168578 / Confirmed Nocturia / SNOMED CT 911789135 / Confirmed Kidney transplanted / SNOMED CT 1489674142 / Confirmed Myocardial infarct / SNOMED CT 71229417 / Confirmed Screen for colon cancer / SNOMED CT 224287882 / Confirmed History of colon polyps / SNOMED CT 9076348472 / Confirmed Histories Past Medical History: No active or resolved past medical history items have been selected or recorded. Family History: Mother Alzheimer's disease Procedure history: Kidney transplant ([id number]) on 01/01/2018 at 57 Years. Comments: 01/01/2020 12:00 Leia Molina MA Pt has three kidneys Placement of stent in cardiac conduit ([id number]). Triple coronary bypass (185122296). Bilateral vasectomy (509105348). Colonoscopy (128633747). Social History Social & Psychosocial Habits Alcohol [...] of hyperplastic polyps, GERD Plan: -EGD and ColonoscopyRiverside Methodist HospitalComment on above:Result Comment: Electronically Signed By: Gladys FRANK, Xochilt Butler\.br\Date and Time Signed: 01/11/24 09:25 [id number] NoteProgress Note-Physician Patient: VISHAL DUKE Age: 63 [...] bedtime), # 90 tab(s), Refills(s) 0, Pharmacy: [facility], 177.8, cm, 12/25/23 9:23:00 EDT, Height/Length [...] BPH with urinary obstruction / SNOMED CT 4022469035 / Confirmed History of colon polyps / SNOMED CT 3949792637 / Confirmed Hyperlipidemia / SNOMED CT 33978086 / Confirmed Hypertension / SNOMED CT 8124781073 / Confirmed Kidney transplanted / SNOMED CT 0448275826 / Confirmed Microhematuria / SNOMED CT 006836738 / Confirmed Myocardial infarct / SNOMED CT 99867152 / Confirmed Nocturia / SNOMED CT 899342183 / Confirmed polycystic kidney disease / SNOMED CT 465753237 / Confirmed Renal failure / SNOMED CT 28894470 / Confirmed Screen for colon cancer / SNOMED CT 490359704 / Confirmed Histories Past Medical History: No active or resolved past medical history items have been selected or recorded. Procedure history: Kidney transplant ([id number]) on 01/01/2018 at 57 Years. Comments: 01/01/2020 12:00 Leia Molina MA Pt has three kidneys Placement of (more content not included)...[facility]Result Comment: Electronically Signed By: Ivan Orozco Jr., DO\Date and Time Signed: 01/11/24 08:41 [id number] Telephone encounter Note* Telephone Encounter - Rosa M Gonzales MD - 12/08/2023 12:59 PM EDT [id number] Miscellaneous Notes* Telephone Encounter - Rosa M Gonzales MD - 12/08/2023 12:59 PM EDT Refills sent. documented in this encounterMer[facility] [id number] Hospital Discharge instructions Follow Up Care 06/06/2023 12:55:17 With:LEONARDA FRANK, Reji Farrell, URL Address: [facility] [address] , [place] [address] [phone] When: Unknown [facility] 02-13-2023 NoteCARDIAC STRESS TEST Requesting Physician: Procedure [...] interpreted, and relayed in a separate dictation.[facility] CenterDxqjzqli73-81-1927 Hospital Discharge instructions Patient Education 01/17/2022 12:05:57 [...] urethra. Follow these instructions at home: Take xnvx-qza-uvoafqx and prescription medicines only as told by [...] 04/03/2006 Document Revised: 02/26/2019 Document Reviewed: 05/08/2017 [employer] Patient Education 2020 [employer] Follow Up Care 11/09/2021 10:07:55 With:LEONARDA FRANK, Reji Farrell, URL Address: [facility] [address] , [place] [address]- [phone] When:01/18/2024 Comments:PSA [facility] 10-03-2022 Evaluation + Plan note Diagnostic Tests Pending * PSA Total 01/17/22 [facility] 02-15-2022 NotePROCEDURE: GE RiparAutOnlinepeed VCT 64, 5.0 mm slice axial images [...] signed by Anjum Remy on 06/01/2021 1051[facility]08-21-2021 NoteMR#: [id number] I [facility] Pt. Name: Vishal Duke Admitted: 12/02/2020 Discharged: [...] Herrera MD Date Trans: 12/05/2020 05:37 A/patrizia DN_JN:[id number] cc: Rosa M Gonzales M.D. [address] [facility] [address]-18-2021 NoteMR#: [id number] [facility] Pt. Name: Vishal Duke Date of Service: 12/02/2020 Room #: 4CD [id number] Birthdate: 1960 Referring Physician: CONSULTATION Reason for [...] disease, gout, GERD, hypertension, CAD status post CT and 2 stents, HLD, Covid pneumonia Past [...] from me. Date Dict: 12/02/2020/05:52 P/Angie Watkins, Date Trans: 12/02/2020 05:52 P/ [id number] cc: Rosa M Gonzales M.D. [address] [facility] [address]05-06-2021 NoteMR#: [id number] I [facility] Pt. Name: Vishal Duke Admitted: 08/02/2020 Discharged: [...] x2 in June. The patient's son and aicbiyuu-uj-zlq were symptomatic just before him. The patient was complaining of fatigue and mild body aches. The patient also developed cough and mild shortness of breath. His dyspnea was initially with exertion, but progressed to minimal activity. After he spoke with his dynamometer repairer, he decreased his Myfortic dose and received [...] Ferreira M.D. Date Trans: 08/20/2020 05:24 A/patrizia DN_[id number] cc: Rosa M Gonzales M.D. [address] [facility] [address]MjnNationwide Children's HospitalEvaluation + Plan note Future Appointments Appointment Date:01/11/2024 09:30:00 AM Scheduled Provider: Location:[facility] Appointment Type:Surgery FT Appointment Date:01/29/2024 10:30:00 AM Scheduled Provider:Reji BROWER MD Location:[facility] Appointment Type:URO Office Visit [facility] Evaluation + Plan note Future Appointments Appointment Date:03/04/2024 01:30:00 PM Scheduled Provider:Reji BROWER MD Location:[facility] Appointment Type:URO Office Visit [facility] evaluation note* Diagnosis Encounter for immunization- Primary Tinea corporis Dermatophytosis of the body Type 2 diabetes mellitus without complications (CMS/HCC) [facility] Diagnosis Polycystic kidney disease, autosomal dominant- Primary Congenital polycystic kidney, autosomal dominant Kidney transplant status (CMS/HCC) Hypokalemia Hypopotassemia Ischemic cardiomyopathy (CMS/HCC) Other specified forms of chronic ischemic heart disease Add Pulmonary fibrosis, unspecified (J84.10) Atherosclerosis of upper si[place] coronary artery of upper [place] heart with angina pectoris (CMS/HCC) Add Atherosclerosis of aorta (I70.0) Atherosclerosis of aorta Add 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 disease involving upper si[place] coronary artery of upper si[place] heart with unstable angina pectoris (CMS/HCC) Essential hypertension (CMS/HCC) Unspecified essential hypertension Status post insertion of drug-eluting stent into left anterior descending (LAD) artery for coronaryartery disease Immunosuppression (CMS/HCC) History of kidney transplant (CMS/HCC) Kidney replaced by transplant Wellness examination- Primary Simple chronic bronchitis (CMS/HCC) Simple chronic bronchitis Chronic systolic congestive heart failure (CMS/HCC) Coronary artery disease involving upper [place] coronary artery of upper [place] heart with unstable angina pectoris (CMS/HCC) Essential hypertension (CMS/HCC) Unspecified essential hypertension Gastroesophageal reflux disease without esophagitis Esophageal reflux PKD (polycystic kidney disease) Congenital polycystic kidney, unspecified type Immunosuppression (CMS/HCC) History of kidney transplant (CMS/HCC) Kidney replaced by transplant Mixed hyperlipidemia (CMS/HCC) Mixed hyperlipidemia 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 (CMS/HCC) Ventricular fibrillation (CMS/HCC) Ventricular fibrillation Left lateral epicondylitis- Primary Simple chronic bronchitis (CMS/HCC) Simple chronic bronchitis Chronic systolic congestive heart failure (CMS/HCC) Coronary artery disease involving upper [place] coronary artery of upper [place] heart with unstable angina pectoris (CMS/HCC) Essential hypertension (CMS/HCC) Unspecified essential hypertension Status post insertion of drug-eluting stent into left anterior descending (LAD) artery for coronaryartery disease Immunosuppression (CMS/HCC) Mixed hyperlipidemia (CMS/HCC) Mixed hyperlipidemia Herpes zoster with complication- Primary Type 2 diabetes mellitus without complications (CMS/HCC) Immunodeficiency, unspecified (CMS/HCC) Chronic systolic (congestive) heart failure (CMS/HCC) Chronic obstructive pulmonary disease, unspecified (CMS/HCC) Cardiomyopathy, unspecified (CMS/HCC) [facility]* Diagnosis Polycystic kidney disease, autosomal dominant- Primary Congenital polycystic kidney, autosomal dominant Kidney transplant status (CMS/HCC) Hypokalemia Hypopotassemia Ischemic cardiomyopathy (CMS/HCC) Other specified forms of chronic ischemic heart disease Add Pulmonary fibrosis, unspecified (J84.10) Atherosclerosis of upper [place] coronary artery of upper [place] heart with angina pectoris (CMS/HCC) Add Atherosclerosis of aorta (I70.0) Atherosclerosis of aorta Add 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 disease involving upper [place] coronary artery of upper [place] heart with unstable angina pectoris (CMS/HCC) Essential hypertension ([facility]) Unspecified essential hypertension Status post insertion of drug-eluting stent into left anterior descending (LAD) artery for coronaryartery disease Immunosuppression ([facility]/HCC) History of kidney transplant ([facility]) Kidney replaced by transplant Wellness examination- Primary Simple chronic bronchitis ([facility]/HCC) Simple chronic bronchitis Chronic systolic congestive heart failure ([facility]/HCC) Coronary artery disease involving upper [place] coronary artery of upper [place] heart with unstable angina pectoris (CMS/HCC) Essential hypertension ([facility]) Unspecified essential hypertension Gastroesophageal reflux disease without esophagitis Esophageal reflux PKD (polycystic kidney disease) Congenital polycystic kidney, unspecified type Immunosuppression ([facility]) History of kidney transplant ([facility]) Kidney replaced by transplant Mixed hyperlipidemia ([facility]) Mixed hyperlipidemia 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 ([facility]) Ventricular fibrillation ([facility]) Ventricular fibrillation Left lateral epicondylitis- Primary Simple chronic bronchitis (CMS/HCC) Simple chronic bronchitis Chronic systolic congestive heart failure ([facility]/HCC) Coronary artery disease involving upper si[place] coronary artery of upper si[place] heart with unstable angina pectoris ([facility]/HCC) Essential hypertension ([facility]) Unspecified essential hypertension Status post insertion of drug-eluting stent into left anterior descending (LAD) artery for coronaryartery disease Immunosuppression ([facility]) Mixed hyperlipidemia ([facility]) Mixed hyperlipidemia Herpes zoster without complication- Primary Elevated fasting glucose Impaired fasting glucose documented in this encounter [facility]* Diagnosis History of kidney transplant ([facility]) Kidney replaced by transplant documented in this encounter [facility] HealthcareEvaluation [facility]* Diagnosis Polycystic kidney disease, autosomal dominant- Primary Congenital polycystic kidney, autosomal dominant Kidney transplant status ([facility]) Hypokalemia Hypopotassemia Ischemic cardiomyopathy ([facility]) Other specified forms of chronic ischemic heart disease Add Pulmonary fibrosis, unspecified (J84.10) Atherosclerosis of [place] coronary artery of upper [place] heart with angina pectoris (CMS/HCC) Add Atherosclerosis of aorta (I70.0) Atherosclerosis of aorta Add 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 disease involving upper [place] coronary artery of upper [place] heart with unstable angina pectoris (CMS/HCC) Essential hypertension (CMS/HCC) Unspecified essential hypertension Status post insertion of drug-eluting stent into left anterior descending (LAD) artery for coronaryartery disease Immunosuppression (CMS/HCC) History of kidney transplant (CMS/HCC) Kidney replaced by transplant Wellness examination- Primary Simple chronic bronchitis (CMS/HCC) Simple chronic bronchitis Chronic systolic congestive heart failure (CMS/HCC) Coronary artery disease involving upper [place] coronary artery of upper [place] heart with unstable angina pectoris (CMS/HCC) Essential hypertension (CMS/HCC) Unspecified essential hypertension Gastroesophageal reflux disease without esophagitis Esophageal reflux PKD (polycystic kidney disease) Congenital polycystic kidney, unspecified type Immunosuppression (CMS/HCC) History of kidney transplant (CMS/HCC) Kidney replaced by transplant Mixed hyperlipidemia (CMS/HCC) Mixed hyperlipidemia 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 (CMS/HCC) Ventricular fibrillation (CMS/HCC) Ventricular fibrillation Left lateral epicondylitis- Primary Simple chronic bronchitis (CMS/HCC) Simple chronic bronchitis Chronic systolic congestive heart failure (CMS/HCC) Coronary artery disease involving upper [place] coronary artery of upper [place] heart with unstable angina pectoris (CMS/HCC) Essential hypertension (CMS/HCC) Unspecified essential hypertension Status post insertion of drug-eluting stent into left anterior descending (LAD) artery for coronaryartery disease Immunosuppression (CMS/HCC) Mixed hyperlipidemia (CMS/HCC) Mixed [...] Add Pulmonary fibrosis, unspecified (J84.10) Atherosclerosis of upper [place] coronary artery of upper [place] heart with angina pectoris (CMS/HCC) Add Atherosclerosis of aorta (I70.0) Atherosclerosis of aorta Add 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 disease involving upper [place] coronary artery of upper [place] heart with unstable angina pectoris (CMS/HCC) Essential hypertension (CMS/HCC) Unspecified essential hypertension Status post insertion of drug-eluting stent into left anterior descending (LAD) artery for coronaryartery disease Immunosuppression (CMS/HCC) History of kidney transplant (CMS/HCC) Kidney replaced by transplant Wellness examination- Primary Simple chronic bronchitis (CMS/HCC) Simple chronic bronchitis Chronic systolic congestive heart failure (CMS/HCC) Coronary artery disease involving upper [place] coronary artery of upper [place] heart with unstable angina pectoris (CMS/HCC) Essential hypertension (CMS/HCC) Unspecified essential hypertension Gastroesophageal reflux disease without esophagitis Esophageal reflux PKD (polycystic kidney disease) Congenital polycystic kidney, unspecified type Immunosuppression (CMS/HCC) History of kidney transplant (CMS/HCC) Kidney replaced by transplant Mixed hyperlipidemia (CMS/HCC) Mixed hyperlipidemia 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 (CMS/HCC) Ventricular fibrillation (CMS/HCC) Ventricular fibrillation Left lateral epicondylitis- Primary Simple chronic bronchitis (CMS/HCC) Simple chronic bronchitis Chronic systolic congestive heart failure (CMS/HCC) Coronary artery disease involving upper [place] coronary artery of upper [place] heart with unstable angina pectoris (CMS/HCC) Essential hypertension (CMS/HCC) Unspecified essential hypertension Status post insertion of drug-eluting stent into left anterior descending (LAD) artery for coronaryartery disease Immunosuppression (CMS/HCC) Mixed hyperlipidemia (CMS/HCC) Mixed hyperlipidemia 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- Primary documented [facility]* Diagnosis Polycystic kidney disease, autosomal dominant- Primary Congenital polycystic kidney, autosomal dominant Kidney transplant status (CMS/HCC) Hypokalemia Hypopotassemia Ischemic cardiomyopathy (CMS/HCC) Other specified forms of chronic ischemic heart disease Add Pulmonary fibrosis, unspecified (J84.10) Atherosclerosis of upper [place] coronary artery of upper [place] heart with angina pectoris (CMS/HCC) Add Atherosclerosis of aorta (I70.0) Atherosclerosis of aorta Add 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 disease involving upper [place] coronary artery of upper [place] heart with unstable angina pectoris (CMS/HCC) Essential hypertension (CMS/HCC) Unspecified essential hypertension Status post insertion of drug-eluting stent into left anterior descending (LAD) artery for coronaryartery disease Immunosuppression (CMS/HCC) History of kidney transplant (CMS/HCC) Kidney replaced by transplant Wellness examination- Primary Simple chronic bronchitis (CMS/HCC) Simple chronic bronchitis Chronic systolic congestive heart failure (CMS/HCC) Coronary artery disease involving upper [place] coronary artery of upper [place] heart with unstable angina pectoris (CMS/HCC) Essential hypertension (CMS/HCC) Unspecified essential hypertension Gastroesophageal reflux disease without esophagitis Esophageal reflux PKD (polycystic kidney disease) Congenital polycystic kidney, unspecified type Immunosuppression (CMS/HCC) History of kidney transplant (CMS/HCC) Kidney replaced by transplant Mixed hyperlipidemia (CMS/HCC) Mixed hyperlipidemia 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 (CMS/HCC) Ventricular fibrillation (CMS/HCC) Ventricular fibrillation Left lateral epicondylitis- Primary Simple chronic bronchitis (CMS/HCC) Simple chronic bronchitis Chronic systolic congestive heart failure (CMS/HCC) Coronary artery disease involving upper [place] coronary artery of upper [place] heart with unstable angina pectoris (CMS/HCC) Essential hypertension (CMS/HCC) Unspecified essential hypertension Status post insertion of drug-eluting stent into left anterior descending (LAD) artery for coronaryartery disease Immunosuppression (CMS/HCC) Mixed hyperlipidemia (CMS/HCC) Mixed hyperlipidemia Basal cell carcinoma of skin of other part of trunk- Primary documented [facility]* Diagnosis Polycystic kidney disease, autosomal dominant- Primary Congenital polycystic kidney, autosomal dominant Kidney transplant status (HCC) Hypokalemia Hypopotassemia Ischemic cardiomyopathy Other specified forms of chronic ischemic heart disease Add Pulmonary fibrosis, unspecified (J84.10) Atherosclerosis of upper [place] coronary artery of upper [place] heart with angina pectoris Add Atherosclerosis of aorta (I70.0) Atherosclerosis of aorta Add 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 disease involving upper [place] coronary artery of upper [place] heart with unstable angina pectoris (HCC) Essential hypertension Unspecified essential hypertension Status post insertion of drug-eluting stent into left anterior descending (LAD) artery for coronaryartery disease Immunosuppression (HCC) History of kidney transplant (HCC) Kidney replaced by transplant Wellness examination- Primary Simple chronic bronchitis (HCC) Simple chronic bronchitis Chronic systolic congestive heart failure (HCC) Coronary artery disease involving upper [place] coronary artery of upper [place] heart with unstable angina pectoris (HCC) Essential hypertension Unspecified essential hypertension Gastroesophageal reflux disease without esophagitis Esophageal reflux PKD (polycystic kidney disease) Congenital polycystic kidney, unspecified type Immunosuppression (HCC) History of kidney transplant (HCC) Kidney replaced by transplant Mixed hyperlipidemia Mixed hyperlipidemia 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 Ventricular fibrillation (HCC) Ventricular fibrillation Left lateral epicondylitis- Primary Simple chronic bronchitis (HCC) Simple chronic bronchitis Chronic systolic congestive heart failure (HCC) Coronary artery disease involving upper [place] coronary artery of upper [place] heart with unstable angina pectoris (HCC) Essential hypertension Unspecified essential hypertension Status post insertion of drug-eluting stent into left anterior descending (LAD) artery for coronaryartery disease Immunosuppression (HCC) Mixed hyperlipidemia Mixed hyperlipidemia Wellness examination- Primary Simple chronic bronchitis (HCC) Simple chronic bronchitis Post-COVID chronic dyspnea Chronic systolic congestive heart failure (HCC) Essential hypertension Unspecified essential hypertension End-stage renal disease (HCC) PKD (polycystic kidney disease) Congenital polycystic kidney, unspecified type Stage 3a chronic kidney disease ([facility]-HCC) History of kidney transplant (HCC) Kidney replaced [...] polycystic kidney, autosomal dominant Kidney transplant status ([facility]) Hypokalemia Hypopotassemia Ischemic cardiomyopathy Other specified forms of chronic ischemic heart disease Add Pulmonary fibrosis, unspecified (J84.10) Atherosclerosis of upper [place] coronary artery of upper [place] heart with angina pectoris Add Atherosclerosis of aorta (I70.0) Atherosclerosis of aorta Add 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 disease involving upper [place] coronary artery of upper [place] heart with unstable angina pectoris (HCC) Essential hypertension Unspecified essential hypertension Status post insertion of drug-eluting stent into left anterior descending (LAD) artery for coronaryartery disease Immunosuppression (HCC) History of kidney transplant (HCC) Kidney replaced by transplant Wellness examination- Primary Simple chronic bronchitis (HCC) Simple chronic bronchitis Chronic systolic congestive heart failure (HCC) Coronary artery disease involving upper [place] coronary artery of upper [place] heart with unstable angina pectoris (HCC) Essential hypertension Unspecified essential hypertension Gastroesophageal reflux disease without esophagitis Esophageal reflux PKD (polycystic kidney disease) Congenital polycystic kidney, unspecified type Immunosuppression (HCC) History of kidney transplant (HCC) Kidney replaced by transplant Mixed hyperlipidemia Mixed hyperlipidemia 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 Ventricular fibrillation (HCC) Ventricular fibrillation Left lateral epicondylitis- Primary Simple chronic bronchitis (HCC) Simple chronic bronchitis Chronic systolic congestive heart failure (HCC) Coronary artery disease involving upper [place] coronary artery of upper [place] heart with unstable angina pectoris (HCC) Essential hypertension Unspecified essential hypertension Status post insertion of drug-eluting stent into left anterior descending (LAD) artery for coronaryartery disease Immunosuppression (HCC) Mixed hyperlipidemia Mixed hyperlipidemia Wellness examination- Primary Simple chronic bronchitis (HCC) Simple chronic bronchitis Post-COVID chronic dyspnea Chronic systolic congestive heart failure (HCC) Essential hypertension Unspecified essential hypertension End-stage renal disease (HCC) PKD (polycystic kidney disease) Congenital polycystic kidney, unspecified type Stage 3a chronic kidney disease ([facility]-HCC) History of kidney transplant (HCC) Kidney replaced [...] Add Pulmonary fibrosis, unspecified (J84.10) Atherosclerosis of upper [place] coronary artery of upper [place] heart with angina pectoris Add Atherosclerosis of aorta (I70.0) Atherosclerosis of aorta Add 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 disease involving upper [place] coronary artery of upper [place] heart with unstable angina pectoris (HCC) Essential hypertension Unspecified essential hypertension Status post insertion of drug-eluting stent into left anterior descending (LAD) artery for coronaryartery disease Immunosuppression (HCC) History of kidney transplant (HCC) Kidney replaced by transplant Wellness examination- Primary Simple chronic bronchitis (HCC) Simple chronic bronchitis Chronic systolic congestive heart failure (HCC) Coronary artery disease involving upper sioux coronary artery of upper sioux heart with unstable angina pectoris (HCC) Essential hypertension Unspecified essential hypertension Gastroesophageal reflux disease without esophagitis Esophageal reflux PKD (polycystic kidney disease) Congenital polycystic kidney, unspecified type Immunosuppression (HCC) History of kidney transplant (HCC) Kidney replaced by transplant Mixed hyperlipidemia Mixed hyperlipidemia 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 Ventricular fibrillation (HCC) Ventricular fibrillation Left lateral epicondylitis- Primary Simple chronic bronchitis (HCC) Simple chronic bronchitis Chronic systolic congestive heart failure (HCC) Coronary artery disease involving upper sioux coronary artery of upper sioux heart with unstable angina pectoris (HCC) Essential hypertension Unspecified essential hypertension Status post insertion of drug-eluting stent into left anterior descending (LAD) artery for coronaryartery disease Immunosuppression (HCC) Mixed hyperlipidemia Mixed hyperlipidemia Wellness examination- Primary Simple chronic bronchitis (HCC) Simple chronic bronchitis Post-COVID chronic dyspnea Chronic systolic congestive heart failure (HCC) Essential hypertension Unspecified essential hypertension End-stage renal disease (HCC) PKD (polycystic kidney disease) Congenital polycystic kidney, unspecified type Stage 3a chronic kidney disease ([facility]) History of kidney transplant (HCC) Kidney replaced by transplant Dizziness Dizziness and giddiness Type 2 diabetes mellitus with diabetic cataract (HCC) Type II or unspecified type diabetes mellitus with ophthalmic manifestations, not stated as uncontrolled Type 2 diabetes mellitus with diabetic polyneuropathy ([facility]) Cardiomyopathy, unspecified (HCC) Dizziness- Primary Dizziness and giddiness Orthostatic hypotension Gastroesophageal reflux disease without esophagitis Esophageal reflux documented in this encounter [facility]* Diagnosis Polycystic kidney disease, autosomal dominant- Primary Congenital polycystic kidney, autosomal dominant Kidney transplant status ([facility]) Hypokalemia Hypopotassemia Ischemic cardiomyopathy Other specified forms of chronic ischemic heart disease Add Pulmonary fibrosis, unspecified (J84.10) Atherosclerosis of upper sioux coronary artery of upper sioux heart with angina pectoris Add Atherosclerosis of aorta (I70.0) Atherosclerosis of aorta Add 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 disease involving upper sioux coronary artery of upper si[place] heart with unstable angina pectoris (HCC) Essential hypertension Unspecified essential hypertension Status post insertion of drug-eluting stent into left anterior descending (LAD) artery for coronaryartery disease Immunosuppression (HCC) History of kidney transplant (HCC) Kidney replaced by transplant Wellness examination- Primary Simple chronic bronchitis (HCC) Simple chronic bronchitis Chronic systolic congestive heart failure (HCC) Coronary artery disease involving upper sioux coronary artery of upper sioux heart with unstable angina pectoris (HCC) Essential hypertension Unspecified essential hypertension Gastroesophageal reflux disease without esophagitis Esophageal reflux PKD (polycystic kidney disease) Congenital polycystic kidney, unspecified type Immunosuppression (HCC) History of kidney transplant (HCC) Kidney replaced by transplant Mixed hyperlipidemia Mixed hyperlipidemia 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 Ventricular fibrillation (HCC) Ventricular fibrillation Left lateral epicondylitis- Primary Simple chronic bronchitis (HCC) Simple chronic bronchitis Chronic systolic congestive heart failure (HCC) Coronary artery disease involving upper si[place] coronary artery of upper si[place] heart with unstable angina pectoris (HCC) Essential hypertension Unspecified essential hypertension Status post insertion of drug-eluting stent into left anterior descending (LAD) artery for coronaryartery disease Immunosuppression (HCC) Mixed hyperlipidemia Mixed hyperlipidemia Wellness examination- Primary Simple chronic bronchitis (HCC) Simple chronic bronchitis Post-COVID chronic dyspnea Chronic systolic congestive heart failure (HCC) Essential hypertension Unspecified essential hypertension End-stage renal disease (HCC) PKD (polycystic kidney disease) Congenital polycystic kidney, unspecified type Stage 3a chronic kidney disease ([facility]) History of kidney transplant (HCC) Kidney replaced [...] replaced by transplant documented in this encounter [facility] HealthcareEvaluation note* Diagnosis Polycystic kidney disease, autosomal dominant- Primary Congenital polycystic kidney, autosomal dominant Kidney transplant status ([facility]) Hypokalemia Hypopotassemia Ischemic cardiomyopathy Other specified forms of chronic ischemic heart disease Add Pulmonary fibrosis, unspecified (J84.10) Atherosclerosis of upper sioux coronary artery of upper sioux heart with angina pectoris Add Atherosclerosis of aorta (I70.0) Atherosclerosis of aorta Add 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 disease involving upper si[place] coronary artery of upper si[place] heart with unstable angina pectoris (HCC) Essential hypertension Unspecified essential hypertension Status post insertion of drug-eluting stent into left anterior descending (LAD) artery for coronaryartery disease Immunosuppression (HCC) History of kidney transplant (HCC) Kidney replaced by transplant Wellness examination- Primary Simple chronic bronchitis (HCC) Simple chronic bronchitis Chronic systolic congestive heart failure (HCC) Coronary artery disease involving upper sioux coronary artery of upper sioux heart with unstable angina pectoris (HCC) Essential hypertension Unspecified essential hypertension Gastroesophageal reflux disease without esophagitis Esophageal reflux PKD (polycystic kidney disease) Congenital polycystic kidney, unspecified type Immunosuppression (HCC) History of kidney transplant (HCC) Kidney replaced by transplant Mixed hyperlipidemia Mixed hyperlipidemia 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 Ventricular fibrillation (HCC) Ventricular fibrillation Left lateral epicondylitis- Primary Simple chronic bronchitis (HCC) Simple chronic bronchitis Chronic systolic congestive heart failure (HCC) Coronary artery disease involving upper sioux coronary artery of upper sioux heart with unstable angina pectoris (HCC) Essential hypertension Unspecified essential hypertension Status post insertion of drug-eluting stent into left anterior descending (LAD) artery for coronaryartery disease Immunosuppression (HCC) Mixed hyperlipidemia Mixed hyperlipidemia Wellness examination- Primary Simple chronic bronchitis (HCC) Simple chronic bronchitis Post-COVID chronic dyspnea Chronic systolic congestive heart failure (HCC) Essential hypertension Unspecified essential hypertension End-stage renal disease (HCC) PKD (polycystic kidney disease) Congenital polycystic kidney, unspecified type Stage 3a chronic kidney disease ([facility]) History of kidney transplant (HCC) Kidney replaced [...] behavior, site unspecified documented in this encounter [facility] HealthcareEvaluation note* Diagnosis Onset Date Resolution Status Admit Date Laceration of left index finger acuteSeptember 2024 12:25pm [facility] Work Phone: Evaluation note* Diagnosis Polycystic kidney disease, autosomal dominant- Primary Congenital polycystic kidney, autosomal dominant Kidney transplant status (HCC) Hypokalemia Hypopotassemia Ischemic cardiomyopathy Other specified forms of chronic ischemic heart disease Add Pulmonary fibrosis, unspecified (J84.10) Atherosclerosis of upper sioux coronary artery of upper si[place] heart with angina pectoris Add Atherosclerosis of aorta (I70.0) Atherosclerosis of aorta Add 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 disease involving upper sioux coronary artery of upper sioux heart with unstable angina pectoris (HCC) Essential hypertension Unspecified essential hypertension Status post insertion of drug-eluting stent into left anterior descending (LAD) artery for coronaryartery disease Immunosuppression (HCC) History of kidney transplant (HCC) Kidney replaced by transplant Wellness examination- Primary Simple chronic bronchitis (HCC) Simple chronic bronchitis Chronic systolic congestive heart failure (HCC) Coronary artery disease involving upper si[place] coronary artery of upper sioux heart with unstable angina pectoris (HCC) Essential hypertension Unspecified essential hypertension Gastroesophageal reflux disease without esophagitis Esophageal reflux PKD (polycystic kidney disease) Congenital polycystic kidney, unspecified type Immunosuppression (HCC) History of kidney transplant (HCC) Kidney replaced by transplant Mixed hyperlipidemia 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 Ventricular fibrillation (HCC) Ventricular fibrillation Left lateral epicondylitis- Primary Simple chronic bronchitis (HCC) Simple chronic bronchitis Chronic systolic congestive heart failure (HCC) Coronary artery disease involving upper sioux coronary artery of upper sioux heart with unstable angina pectoris (HCC) Essential hypertension Unspecified essential hypertension Status post insertion of drug-eluting stent into left anterior descending (LAD) artery for coronaryartery disease Immunosuppression (HCC) Mixed hyperlipidemia Wellness examination- [...] he saw his regular [place] by his diesel technician mechanic to agreed with and endorsed the care we rendered. The device was interrogated it in their office and it appears to be functioning appropriately. Because of all the above he is pleased with his care. He'll be following up henceforth with the [place] diesel technician mechanic and we advised him were always happy to participate in his care if he needs help. I believe his ICD will be interrogated and managed through their office. We also note thathis renal transplant was not injured as a result of the hospitalization and contrast administrationand/or antibiotic therapy because of this he is pleased. -[facility] 250 DO Work Phone: Hospital course Narrative No data available for this section [facility] Hospital Discharge instructions No data available for this section [facility] Progress note No data available for this section [facility] reason for referral (narrative)No reason for referral information availableWayne [facility] Work Phone: Chief Complaint VISHAL DUKE is being seen for follow-up of a hospitalization for [facility] D/C 12/11/2020 ICD insert. Family History Unknown Family Member Name Dates Details Family history of cardiac pa cemaker: Mother(V17.49, Z82.49) Status:ActivePolycystic kidney disease: Sibling Status:Active Relationship Condition Age at Onset Recorded Date/T lissy son Polycystic kidney disease Unknown sisterPolycystic kidney diseaseUnknownMyocardial infarctionUnknowngrandchild Polycystic kidney diseaseUnknown Summary Purpose Advance Directives Advance Directive Response [...] section and content) DATE CREATED AUTHOR 04/25/2021 [employer] DATE CREATED AUTHOR AUTHOR'S ORGANIZ ATION 05/10/2021 [facility] DATE CREATED AUTHOR AUTHOR'S ORGANIZ ATION 07/18/2021 [facility] DATE CREATED AUTHOR AUTHOR'S ORGANIZ ATION 01/17/2022 [facility] [employer] DATE CREATED AUTHOR AUTHOR'S ORGANIZ ATION 08/25/2022 [facility] DATE CREATED AUTHOR AUTHOR'S ORGANIZ ATION 01/19/2024 [facility] DATE CREATED AUTHOR AUTHOR'S ORGANIZ ATION 03/06/2024 [facility] DATE CREATED AUTHOR AUTHOR'S ORGANIZ ATION 03/07/2024 [facility] DATE CREATED AUTHOR AUTHOR'S ORGANIZ ATION 01/18/2025 [facility] DATE CREATED AUTHOR AUTHOR'S ORGANIZ ATION 01/21/2025 [facility] EPIC Care Team (unrecognized sect ion and content) Team MemberRelationshipSpecialtyStart DateEnd Date Rosa M Gonzales MD [address] [facility], [place] [address] PCP - ACO Reach09/08/22 Rosa M Gonzales MD [address] [facility], [place] [address] PCP - GeneralFamily Medicine10/25/22 Rosa M Platt RN Registered NurseFamily Beyitecf47/15/23Team MemberRelationshipSpecialtyStart DateEnd Date Rosa M Gonzales MD [address] [facility], [place] [address] PCP - GeneralFamily Medicine10/25/22 Rosa M Gonzales MD [address] [facility] [place] [address] PCP - ACO Reach08/16/23 Rosa M Platt, RN Registered NurseFamily Muzeqsdf21/15/23Team MemberRelationshipSpecialtyStart DateEnd Date Rosa M Gonzales MD [address] [facility] [place] [address] PCP - GeneralFamily Medicine10/25/22 Rosa M Gonzales MD [address] [place] [address] PCP - Replaced by [facility]08/16/23 Rosa M Platt, TATO [facility]03/01/23Team MemberRelationshipSpecialtyStart DateEnd Date Rosa M Gonzales MD [address] [place] [address] PCP - [facility] Medicine10/25/22 Rosa M Gonzales MD [address] [place] [address] [facility] - Replaced by [facility]08/16/23 Rosa M Platt, TATO Registered NurseE[facility]03/01/23Team MemberRelationshipSpecialtyStart DateEnd Date Rosa M Gonzales MD [address] [place] [address] PCP - [facility]10/25/22 Rosa M Gonzales MD [address] [place] [address] [facility] - Replaced by [facility]08/16/23 Rosa M Platt, TATO Registered [facility]03/01/23Team MemberRelationshipSpecialtyStart End Date Rosa M Gonzales MD [address] [place] [address] PCP - [facility] Medicine10/25/22 Rosa M Gonzales MD [address] [place] [address] PCP - Replaced by [facility]08/16/23 Rosa M Platt, TATO Registered NurseE[facility]03/01/23Te MemberRelationshipSpecialtyStart DateEnd Date Rosa M Gonzales MD [address] [place] [address] PCP - [facility]10/25/22 Rosa M Gonzales MD [address] [place] [address] PCP - Replaced by [facility]08/16/23 Rosa M Platt RN Registered NurseEffingham [facility]03/01/23Te MemberRelationshipSpecialtyStart DateEnd Date Rosa M Gonzales MD [address] [place] [address] PCP - [facility]10/25/22 Rosa M Gonzales MD [address] [place] [address] PCP - Replaced by [facility]08/16/23 Rosa M Platt, TATO Registered NurseE[facility]03/01/23Te MemberRelationshipSpecialtyStart End Rosa M Gonzales MD [address] [place] [address] PCP - [facility]10/25/22 Rosa M Gonzales MD [address] [place] [address] PCP - Replaced by [facility]08/16/23 Rosa M Platt, TATO Registered NurseE[facility]03/01/23Te MemberRelationshipSpecialtyStart End Rosa M Gonzales MD [address] [place] [address] PCP - [facility] Medicine10/25/22 Rosa M Gonzales MD [address] [place] [address] [facility] - Replaced by [facility]08/16/23 Rosa M Platt, TATO Registered NurseE[facility]03/01/23Te MemberRelationshipSpecialtyStart DateEnd Rosa M Gonzales MD [address] [place] [address] PCP - [facility]10/25/22 Rosa M Gonzales MD [address] [place] [address] [facility] - Replaced by [facility]08/16/23 Rosa M Platt, TATO Registered NurseE[facility]03/01/23Te MemberRelationshipSpecialtyStart End Rosa M Gonzales MD [address] [place] [address] PCP - [facility] Medicine10/25/22 Rosa M Gonzales MD [address] [place] [address] PCP - Replaced by [facility]08/16/23 Rosa M Platt, RN Registered NursePella Regional Health Centerly Qbhlmsnj23/15/23Te MemberRelationshipSpecialtyStart End Rosa M Gonzales MD [address] [place] [address] PCP - [facility]10/25/22 Rosa M Gonzales MD [address] [place] [address] PCP - Replaced by [facility]05/31/24 Rosa M Platt RN Registered NurseHaverhill [facility] Webubwah88/15/23Te MemberRelationshipSpecialtyStart End Rosa M Gonzales MD [address] [facility] [place] [address] PCP - [facility]10/25/22 Rosa M Gonzales MD [address] [place] [address] PCP - Replaced by [facility]05/31/24 Rosa M Platt RN Registered NursePella Regional Health Centerly Olneaizw34/15/23Te MemberRelationshipSpecialtyStart End Rosa M Gonzales MD [address] [place] [address] PCP - [facility] Medicine10/25/22 Rosa M Gonzales MD [address] [place] [address] PCP - Replaced by [facility]05/31/24 Rosa M Platt, TATO Registered NurseHaverhill [facility] Eybqassp39/15/23Te MemberRelationshipSpecialtyStart DateEnd Date Rosa M Gonzales MD [address] [place] [address] PCP - [facility] Medicine10/25/22 Rosa M Platt, RN Registered NurseEffingham Hospital03/01/23Te MemberRelationshipSpecialtyStart DateEnd Date Rosa M Gonzales MD [address] [place] [address] PCP - [facility] Medicine10/25/22 Rosa M Platt, RN Registered NurseEffingham Hospital03/01/23Te MemberRelationshipSpecialtyStart DateEnd Date Rosa M Gonzales MD [address] [place] [address] PCP - [facility]10/25/22 Rosa M Platt, RN [address] [place] [address] Registered NurseEffingham Hospital03/01/23Te MemberRelationshipSpecialtyStart DateEnd Date Rosa M Gonzales MD [address] [place] [address] PCP - [facility]10/25/22 Rosa M Platt, RN [address] [place] [address] Registered NurseEffingham Hospital03/01/23Te MemberRelationshipSpecialtyStart DateEnd Date Rosa M Gonzales MD [address] [place] [address] PCP - [facility]10/25/22 Rosa M Platt RN [address] [place] [address] Registered NurseEffingham Hospital03/01/23Team MemberRelationshipSpecialtyStart End Rosa M Gonzales MD [address] [place] [address] PCP - [facility]10/25/22 Rosa M Platt RN [address] [place] [address] Registered NurseEffingham Hospital03/01/23Te MemberRelationshipSpecialtyStart End Rosa M Gonzales MD [address] [place] [address] PCP - [facility]10/25/22 Rosa M Platt RN [address] [place] [address] Registered NurseEffingham Hospital03/01/23Te MemberRelationshipSpecialtyStart End Rosa M Gonzales MD [address] [place] [address] PCP - [facility]10/25/22 Rosa M Platt RN [address] [place] [address] Registered NurseEffingham Hospital03/01/23Te MemberRelationshipSpecialtyStart End Rosa M Gonzales MD [address] [place] [address] PCP - GeneralFamily Medicine10/25/22 Rosa M Platt, TATO [address] [place] [address] Registered NurseEffingham Hospital03/01/23Te MemberRelationshipSpecialtyStart DateEnd Date Rosa M Gonzales MD [address] [place] [address] PCP - [facility]10/25/22 Rosa M Platt RN [address] [place] [address] Registered NurseEffingham Hospital03/01/23Te MemberRelationshipSpecialtyStart DateEnd Date Rosa M Gonzales MD [address] [place] [address] PCP - [facility]10/25/22 Rosa M Platt RN [address] [place] [address] Registered NurseEffingham Hospital03/01/23Te MemberRelationshipSpecialtyStart DateEnd Rosa M Gonzales MD [address] [place] [address] PCP - [facility]10/25/22 Rosa M Gonzales MD [address] [place] [address] PCP - [place] [address] Rosa M Platt, RN [address] [place] [address] Registered NurseEffingham Hospital03/01/23Te MemberRelationshipSpecialtyStart DateEnd Date Rosa M Gonzales MD [address] [place] [address] PCP - [facility] Medicine10/25/22 Rosa M Gonzales MD [address] [place] [address] PCP - [place] [address] Rosa M Platt, RN [address] [place] [address] Registered NurseEffingham Hospital03/01/23 Team Status: Active Member Role Status Dates Rosa M Gonzales MD Primary Care Provide r Active Team Status: Inactive Member Role Status Dates Rosa M Gonzales MD Primary Care Provider Active Start: December 172024 End: January 06, 2025Patricia Jolley APRN [facility] Provider ActiveStart: January 06, 2025 End: January 06, 2025Team MemberRelationshipSpecialtyStart DateEnd Date Rosa M Gonzales MD [address] [place] [address] PCP - [facility] Medicine10/25/22 Rosa M Gonzales MD [address] [place] [address] PCP - [place] [address] Rosa M Platt, RN [address] [place] [address] Registered NurseEffingham Hospital03/01/23Team MemberRelationshipSpecialtyStart DateEnd Date Rosa M Gonzales MD [address] [place] [address] [facility]/22 Rosa M Gonzales MD [address] [place] [address] PCP - [place] [address] Rosa M Platt, RN [address] [place] [address] Registered NurseEffingham Hospital03/01/23Te MemberRelationshipSpecialtyStart DateEnd Date Rosa M Gonzales MD [address] [place] [address] PCP - [facility]10/25/22 Rosa M Gonzales MD [address] [place] [address] [facility] - [place] [address] Rosa M Platt, RN [address] [place] [address] Registered NurseEffingham Hospital03/01/23Te MemberRelationshipSpecialtyStart DateEnd Rosa M Gonzales MD [address] [place] [address] PCP - [facility]10/25/22 Rosa M Gonzales MD [address] [place] [address] PCP - ACO Reach5/ Rosa M Gonzales MD [address] [place] [address] PCP - ACO Reach2/14/ Rosa M Gonzales MD [address] [facility] [place] [address] PCP - Human04/17/23 Rosa M Platt, RN [address] [facility] [place] [address] Registered NurseFamily Xrvjatbk69/15/23 Reason for Visit (unrecogniz ed section and content) ReasonCommentsRashAlong throat/chest, right side. Started couple of days ago. ReasonCommentsRashReasonCommentsMed RefillReasonCommentsSkin CheckReasonComments Mohs Micrographic SurgeryReasonCommentsFollow-upReasonCommentsDizzinessReason CommentsMohs Micrographic SurgeryFollow-upReasonCommentsSuture / Staple Removal Follow-upSuspicious Skin Lesion Goals (unrecognized section and content) [...] BE BASED ON THE PRIMARY CLINICAL RECORDS. [facility] [employer] provides no warranty or guarantee of the accuracy or completeness of information in this document.
[2025-02-20 08:27] LABS: Hematocrit 47.9 % (42.0-54.0); Hemoglobin 15.5 g/dL (14.0-18.0); Immature Granulocytes Abs Auto 0.02 10^3/uL (0.00-0.03); Immature Granulocytes Pct Auto 0.3 % (0.0-0.5); Lymphocytes Absolute Auto 1.0 10^3/uL (1.2-3.8); Mean Corpuscular HGB Conc 32.4 g/dL (29.9-35.2); Mean Corpuscular Hemoglobin 29.2 pg (25.9-34.0); Mean Corpuscular Volume 90.4 fL (80.0-94.0); Platelet Count 222 10^3/uL (150-450); Red Blood Count 5.30 10^6/uL (4.70-6.10); White Blood Count 7.2 10^3/uL (4.0-11.0)
[2025-02-20 10:46] LABS: Alanine Aminotransferase 32 U/L (16-63); Albumin Globulin Ratio 1.3; Albumin Level 3.9 g/dL (3.4-5.0); Alkaline Phosphatase 92 U/L (46-116); Anion Gap 12.0; Aspartate Amino Transferase 18 U/L (15-37); Blood Urea Nitrogen 23.0 mg/dL (7.0-18.0); Calcium 9.0 mg/dL (8.5-10.1); Carbon Dioxide 28.3 mmol/L (21.0-32.0); Chloride 106 mmol/L (98-107); Estimated GFR (African America >60 (>=60 mL/min/1.73m^2); Estimated GFR (Non-African Ame >60 (>=60 mL/min/1.73m^2); Globulin 2.9 g/dL; Glucose 138 mg/dL (74-106); Magnesium 1.8 mg/dL (1.8-2.4); Potassium 4.3 mmol/L (3.5-5.1); Sodium 142 mmol/L (136-145); Total Protein 6.8 g/dL (6.4-8.2); Uric Acid 6.0 mg/dL (3.5-7.2)
[2025-02-24 06:11] LABS: Tacrolimus (FK506), Blood 6.1 ng/mL (5.0-20.0)
== END 2025-02-20 07:59 | disposition home or self-care (01) ==
LOC: LAB 08:00
PROVIDERS: PCP Family Medicine; Visit Provider Nurse Practitioner Family
DX: R73.01 Impaired fasting glucose (principal); Z94.0 Kidney transplant status
CPT/HCPCS: 36415; 80053; 80197; 82248; 83735; 84100; 84550; 85025

== ENCOUNTER 2025-03-28 08:20 | Outpatient (OUT) | payer MEDICARE, SELFPAY ==
--- OUTSIDE RECORDS SUMMARY | 2025-03-28 08:28 | XMS_ITS | CCD ---
Author Organization [facility] Care Team Providers Care Senior Technical Architect Name Role Phone Rosa M Gonzales Unavailable [phone] Unavailable Unavailable YONAS HERRERA Surgeon Unavailable [place] Procedure Practitioner Unavailab YONAS Hsieh Attending Unavailable [...] Primary Care Unavailable YOJANA MCDANIELS Surgeon Unavailable [place] Procedure Practitioner Unavailab prabhakar MACDONALD, REFERRED Referring Unavailable ROSA M GONZALES Primary Care Unavailable DERICK VIDAL Attending Unavailable DERICK VIDAL Admitting Unavailable ROSA M GONZALES Primary Care Physician STEPHANIE, DR LAYTON Consulting Unavailable ELTAHAWY, DR LAYTON Admitting Unavailable ELTASUDHA, DR LAYTON Attending Unavailable DR ROSA M GONZAELS Primary Care Unavailable MISC, DR PEDERSEN Admitting [...] Unavailable JANET, DR DUVAL Primary Care Unavailable SPRINGFIELD, DR AIME Arnold Consulting Unavailable ELTAHAWY, DR [...] Rosa M Platt RN Unavailable ROSA M GONZALES. Primary Care Physician Rosa M Gonzales MD Unavailable Reji BROWER Attending Unavailable Sarmini, Schmidt Talal Referring Unavaila ble Sarmini, Schmidt Talal Admitting Unavaila ble Sarmini, Schmidt Talal Attending Unavaila ble Sarmini, Schmidt Talal Attending Unavaila Reji Belle Attending Unavailable Rosa M Gonzales MD Unavailable [phone] Rosa M Platt RN Unavailable Rosa M Gonzales MD Unavailable [phone] Rosa M Coyne MD Primary Care Pr [...] MD Unavailable Rosa M Gonzales MD Unavailable [phone] Allergies Allergy ClassificationReported Allergen(s)Allergy TypeDate of OnsetReaction(s) Facility (1 source)90251,00; Translations: [33701,00]Propensity to adverse reactions (disorder)10-30-0257Hnj [facility] Repository (2 sources)Cephalexin; Translations: [Keflex][facility] Medications Current Medications MedicationDrug Class(es)DatesSig (Normalized)Sig (Original)acetaminophen 325 mg / HYDROcodone bitartrate 5 mg oral tablet (1 source)Opioid AgonistStart: 01-30-2024 End: 19-36-9092omkl 1 tablet by mouth every six hours for painHYDROcodone- acetaminophen ([place]) 5-325 MG tablet Indications: Herpes zoster without complication Take 1 tablet by mouth every 6 (six) hours if needed for severe pain for up to 3 days 12 tablet 01/30/2024 02/02/2024 [id number] 200 actuat albuterol 0.09 mg/actuat metered dose inhaler (20 sources)beta2-Adrenergic AgonistStart: 59-70-2255Rlcgfscjp Sulfate 90 mcg/actuation HFA aerosol inhaler Active INHALATION January 06, 2025 12:00am Complies with drug therapyStart: 12-03-2024 End: 25-23-1516ohjr 2 puff(s) by inhalation every four hoursalbuterol HFA 90 mcg/act inhaler Indications: Simple chronic bronchitis (HCC) Inhale 2 puffs every 4 (four) hours if needed for shortness of breath 18 g 12/03/2024 12/03/2025 ActiveStart: 10-24-2022 End: 89-81-6141yloy 2 puff(s) by inhalation every four hoursalbuterol HFA 90 mcg/act inhaler Indications: Simple chronic bronchitis (HCC) Inhale 2 puffs every 4 (four) hours if needed for shortness of breath 18 g 06/27/2023 Active amoxicillin 500 mg oral capsule (20 sources)Penicillin-class AntibacterialStart: 37-25-8963cmgs 4 capsules by mouth every houramoxicillin (Amoxil) 500 MG capsule TAKE 4 CAPSULES BY MOUTH ONE HOUR PRIOR TO DENTAL APPOINTMENT. 07/16/2024 Activeaspirin 81 mg oral tablet (20 sources)Platelet Aggregation Inhibitor, Nonsteroidal Anti-inflammatory Drug Start: 50-86-0755getu 1 tablet by mouth once dailyAspirin Low Dose 81 MG Oral Tablet Chewable CHEW ONE TABLET BY MOUTH EVERY DAY Quantity: 30 Refills: 0 Ordered: 19-Aug-2020 DO Start : 19-Aug-2020 ActiveStart: 77-57-1681fagn 1 capsule by mouth once dailyAspirin 81 mg Capsule Active 81 MG PO Daily December 08, 2020 12:00am Complies with drug therapytake 1 tablet by mouth once dailyaspirin 81 MG EC tablet Take 81 mg by mouth Daily Activeatorvastatin 80 mg oral tablet (20 sources)HMG-CoA Reductase InhibitorStart: 62-05-4014asvx 1 tablet by mouth once dailyatorvastatin (Lipitor) 80 MG tablet Take 80 mg by mouth Daily 11/21/2022 Activeclopidogrel 75 mg oral tablet (20 sources)P2Y12 Platelet InhibitorStart: 37-38-1079esml 1 tablet by mouth once dailyclopidogrel 75 mg Tab 75 mg = 1 tab(s), Oral, Daily, Blood Thinner Start Date: 01/17/22 Status: Orderedclotrimazole 10 mg oral lozenge (4 sources)Azole AntifungalStart: 50-98-3334mzzj 1 mg by mouth once daily clotrimazole 10 mg Jennifer mg lozenge(s), Oral, 5x/Day, Refills(s) 0, Infection or prophylaxis for antibiotics Start Date: 01/01/20 Status: Ordereddapagliflozin 10 mg oral tablet (3 sources)Sodium-Glucose Cotransporter 2 InhibitorStart: 12-98-2919sykv 1 tablet by mouth once dailyFarxiga 10 mg oral tablet 10 mg = 1 tab(s), Oral, Daily Start Date: 01/17/22 Status: Orderedtake 1 tablet by mouth once daily in the morningFarxiga 10 MG Oral Tablet TAKE 1 TABLET BY MOUTH EVERY MORNING Quantity: 0 Refills: 0 Ordered: 23-Apr-2021 DO Activeempagliflozin 10 mg oral tablet (20 sources)Sodium-Glucose Cotransporter 2 InhibitorStart: 07-05-2022 End: 40-08-6545mhyp 10 mg by mouth in the morningempagliflozin (Jardiance) 10 MG Take 10 mg by mouth in the morning. 07/05/2022 Activeesomeprazole 40 mg delayed release oral capsule (20 sources)Proton Pump InhibitorStart: 89-18-8873sdom 1 capsule by mouth once dailyEsomeprazole Magnesium 40 mg capsule,delayed release(DR/EC) Active 40 MG PO Daily January 06, 2025 12:00am Complies with drug therapyfluocinonide 0.5 mg/ml topical solution (1 source)CorticosteroidStart: 96-79-9575kglnleygbelm (Lidex) 0.05 % external solution Indications: Other seborrheic dermatitis Apply to affected areas on the scalp twice a day for flares, set aside when clear. 30 days 60 mL 11 02/06/2023 Pwtxgp85 hr isosorbide mononitrate 60 mg extended release oral tablet (20 sources)Nitrate VasodilatorStart: 71-80-5867xwxm 1 tablet by mouth every twenty-four hoursIsosorbide Mononitrate 60 mg tablet extended release 24 hr Active MG PO January 06, 2025 12:00am Complies with drug therapyStart: 32-69-8111pemw 1 tablet by mouth once daily in the morningisosorbide mononitrate 60 mg ER Tab 60 mg = 1 tab(s), Oral, qAM, Refills(s) 0, High blood pressure S tart Date: 01/11/24 Status: OrderedStart: 61-23-9395juzgvyeikh mononitrate ER (Imdur) 60 MG 24 hr tablet 07/19/2023 ActiveStart: 53-05-8972laie 1 tablet by mouth every twenty-four hours in the morningisosorbide mononitrate ER (Imdur) 60 MG 24 hr tablet TAKE 1 TABLET BY MOUTH IN THE MORNING do not crush or chew 07/19/2023 ActiveStart: 09-13-4710jsjp 1 tablet by mouth every twenty-four hours in the morningisosorbide mononitrate ER (Imdur) 30 MG 24 hr tablet Take 1 tablet by mouth in the morning. 0 09/21/2022 Activeketoconazole 20 mg/ml topical cream (5 sources)Azole AntifungalStart: 01-26-2024 End: 77-38-3629yaheqxksbhzg (NIZOral) 2 % cream Indications: Tinea corporis Apply topically Daily for 14 days Apply thin layer to affected area daily 60 g 01/26/2024 02/09/2024 Activelisinopril 5 mg oral tablet (20 sources)Angiotensin Converting Enzyme InhibitorStart: 27-04-5331vglu 1 tablet by mouth once dailyLisinopril 5 mg tablet Active 5 MG PO Daily December 08, 2020 12:00am Complies with drug therapymagnesium amino acid chelate (2 sources)Start: 43-81-2075wcsxckozb amino acids chelate Oral, Refills(s) 0 Start Date: 01/01/20 Status: Orderedmagnesium oxide 400 mg oral tablet (20 sources)Start: 05-20-2024 End: 42-10-0859vpdr 1 tablet by mouth in the morning, [...] 270 tablet 1 12/04/2024 ActiveStart: 12-08-2020 End: 33-47-7140kgrf 1 tablet by mouth three times daily at bedtimemagnesium oxide (Mag-Ox) 400 (240 Mg) MG tablet Indications: History of kidney transplant (CMS/HCC)TAKE 1 TABLET BY MOUTH THREE TIMES DAILY (IN THE MORNING, IN THE EVENING, and BEFORE bedtime) 270 tablet 1 12/08/2023 ActiveStart: 37-95-5252jclb 1 tablet by mouth three times dailyMagnesium Oxide 400 (241.3 Mg) MG Oral Tablet TAKE 1 TABLET BY MOUTH THREE TIMES DAILY Quantity: 90Refills: 0 Ordered: 03-Mar-2021 DO Start : 01-Jul-2020 Arefex79 hr metoprolol succinate 100 mg extended release oral tablet (20 sources)beta-Adrenergic BlockerStart: 31-04-0361xmcqibmyvo succinate XL (Toprol-XL) 100 MG 24 hr tablet 09/10/2024 ActiveStart: 19-88-6435wrls 1 tablet by mouth once dailymetoprolol succinate XL (Toprol-XL) 200 MG 24 hr tablet Take 100 mg by mouth Daily 11/21/2022 ActiveStart: 13-98-5229piwd 1 tablet by mouth every twenty-four hours in the morningmetoprolol succinate XL (Toprol-XL) 200 MG 24 hr tablet Take 200 mg by mouth in the morning. 0 11/21/2022 ActiveStart: 16-26-9146ppvb 1 tablet by mouth every twenty-four hoursMetoprolol Succinate ER 200 MG Oral Tablet Extended Release 24 Hour Quantity: 30 Refills: 0 Ordered: 04-Apr-2021 DO Start : 04-Jan-2021 ActiveStart: 11-35-5452unpp 1 tablet by mouth once dailyMetoprolol Succinate (Toprol Xl) 200 mg tablet extended release 24 hr Active 200 MG PO Daily December 12, 2020 12:00am Complies with drug therapy Start: 12-08-2020 End: 14-86-7165Kyfolvjliz Tartrate 50 mg tablet Discontinued 75 MG PO Twice daily December 08, 2020 12:00am 2020 4:55pmStart: 02-60-5490misr 1 mg by mouth twice dailyMetoprolol tartrate 50 mg Tab mg tab(s), Oral, BID, Refills(s) 0, High blood pressure Start Date: 01/01/20 Status: Orderedmupirocin 0.02 mg/mg topical ointment (5 sources)RNA Synthetase Inhibitor AntibacterialStart: 55-92-8562jwkblwsai (Bactroban) 2 % ointment Indications: Basal cell carcinoma of skin of scalp and neck Apply to surgical incision on the scalp once daily with wound care x 10 days 22 g 01/03/2025 Activemycophenolic acid 180 mg delayed release oral tablet (20 sources)Antimetabolite ImmunosuppressantStart: 03-21-2024 End: 67-02-8739brcx 1 tablet by mouth in the morningmycophenolate (Myfortic) 180 MG EC tablet Indications: Aftercare following organ transplant Take 1 tablet (180 mg) by mouth in the morning and 1 tablet (180 mg) before bedtime. 180 tablet 03/21/2024 03/21/2025 ActiveStart: 07-25-2023 End: 39-79-6907vcow 3 tablets by mouth twice daily at bedtimemycophenolate (Myfortic) 180 MG EC tablet TAKE 3 TABLETS BY MOUTH TWICE DAILY IN THE MORNING AT BEDTIME 07/25/2023 03/19/2024 Discontinued (Reorder)Start: 12-08-2020 End: 97-31-2751uahh 3 tablets by mouth in the morningmycophenolate (Myfortic) 180 MG EC tablet Indications: History of kidney transplant (CMS/HCC) Take 3 tablets (540 mg) by mouth in the morning and 3 tablets (540 mg) before bedtime. 540 tablet 1 12/14/2022 06/12/2023 ActiveStart: 71-83-2928cpmq 1 mg by mouth twice dailymycophenolic acid 180 mg oral enteric coated tablet mg tab(s), Oral, BID, Refills(s) 0 Start Date: 01/01/20 Status: Orderednitroglycerin 0.4 mg sublingual tablet (20 sources)Nitrate VasodilatorStart: 10-26-2020 End: 69-41-9280zypykmiazquml (Nitrostat) 0.4 MG SL tablet Indications: Coronary artery disease involving benton coronary 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 (HCC) Place 1 tablet (0.4 mg) under the tongue every 5 (five) minutes if needed for chest pain. 90 tablet 12 11/08/2022 Activeprasugrel 10 mg oral tablet (2 sources)P2Y12 Platelet InhibitorStart: 21-07-6447qwvn 1 tablet by mouth once dailyEffient 10 mg Tab 10 mg = 1 tab(s), Oral, Daily, # 30 tab(s), Refills(s) 0 Start Date: 01/01/20 Status: OrderedpredniSONE 5 mg oral tablet (5 sources)Start: 11-06-2020 End: 92-36-2513jsnn 1 tablet by mouth once dailypredniSONE (Deltasone) 5 MG tablet Indications: Kidney transplant status (CMS/HCC) TAKE 1 TABLET BYMOUTH DAILY 90 tablet 0 03/14/2023 Bnrpir59 hr ranolazine 500 mg extended release oral tablet (20 sources)Anti-anginalStart: 99-28-5609bhuj 1 tablet by mouth twice daily Ranolazine 500 mg tablet extended release 12 hr Active 500 MG PO Twice daily January 06, 2025 12:00am Complies with drug therapyStart: 93-25-0444dndc 1 tablet by mouth twice dailyranolazine 500 [...] bicarbonate 325 mg oral tablet (2 sources)Start: 88-83-6587igjh 1 tablet by mouth four times daily as needed sodium bicarbonate 325 mg Tab = 1 tab(s), Oral, QID, PRN for indigestion, # 30 tab(s), Refills(s) 0Start Date: 01/01/20 Status: Orderedsucralfate 1000 mg oral tablet (2 sources)Aluminum ComplexStart: 32-97-1368uohf 1 tablet by mouth three times dailysucralfate 1 g Tab 1 gm = 1 tab(s), Oral, TID Start Date: 01/17/22 Status: OrderedBactrim (2 sources)Dihydrofolate Reductase Inhibitor Antibacterial, Sulfonamide AntimicrobialStart: 67-96-9974Caghmcd Oral, q12hr, Refill(s) 0 Start Date: 01/01/20 Status: Orderedtacrolimus 0.5 mg oral capsule (20 sources)Calcineurin Inhibitor ImmunosuppressantStart: 05-20-2024 End: 60-58-4296oxvd 1 capsule by mouth in the morningtacrolimus (Prograf) 0.5 MG capsule Indications: History of kidney transplant ([facility]) Take 1 capsule (0.5 mg) by mouth in the morning and 1 capsule (0.5 mg) before bedtime. 180 capsule 05/20/2024 05/20/2025 ActiveStart: 05-00-0531lyka 1 capsule by mouth once daily tacrolimus (Prograf) 1 MG capsule Take 1 mg by mouth Daily 07/19/2023 Active Start: 11-08-2022 End: 06-57-5653emlu 1 capsule by mouth in the morningtacrolimus (Prograf) 0.5 MG capsule Take 0.5 mg by mouth in the morning and 0.5 mg before bedtime. 0 07/19/2023 ActiveStart: 98-58-7391ahxsvhfjmq 0.5 mg oral capsule 1 mg = 2 cap(s), Refills(s) 0 Start Date: 03/04/24 Status: OrderedStart: 49-62-3806Fxrlmamsfz 1 MG Oral Capsule TAKE DIRECTED. Quantity: 0 Refills: 0 Ordered: 04-Apr-2021 DO Start: 01-Jul-2020 ActiveStart: 51-38-4089ocummixzjz 1 mg, Refills(s) 0, Other (see comment) Start Date: 01/01/20 Status: OrderedStart: 81-97-0508kxcinubrlp 1 mg, Refills(s) 0 Start Date: 01/01/20 Status: OrderedvalACYclovir 1000 mg oral tablet (3 sources)Herpesvirus Nucleoside Analog DNA Polymerase Inhibitor, Herpes Simplex Virus Nucleoside Analog DNA Polymerase Inhibitor, Herpes Zoster Virus Nucleoside Analog DNA Polymerase InhibitorStart: 01-29-2024 End: 94-79-0721mkte 1 tablet by mouth in the morning, [...] ActivevalGANciclovir 450 mg oral tablet (2 sources)Start: 79-07-0266ftlp 1 mg by mouth once dailyvalganciclovir 450 mg oral tablet mg tab(s), Oral, Daily, Refills(s) 0 Start Date: 01/01/20 Status: O rdered Completed/Discontinued Medications MedicationDrug Class(es)DatesSig (Normalized)Sig (Original)clindamycin 300 mg oral capsule (1 source)Lincosamide AntibacterialStart: 12-12-2020 End: 47-76-2285qfln 2 capsules by mouth every eight hoursClindamycin Hcl 300 mg Capsule Discontinued 600 MG PO Every 8 hours 18 3 December 12, 2020 12:00am S zeketedenise 2024 12:32pmfamotidine 40 mg oral tablet (6 sources)Histamine-2 Receptor AntagonistStart: 02-15-2024 End: 82-01-8411qphm 1 tablet by mouth at bedtimefamotidine (Pepcid) 40 MG tablet Take 40 mg by mouth at bedtime 02/15/2024 03/21/2024 Discontinued (Therapy completed)Start: 09-52-6179txel 1 tablet by mouth once daily at bedtime famotidine 40 mg Tab 40 mg = 1 tab(s), Oral, Once a day (at bedtime), # 90 tab(s), Refills(s) 0, Pharmacy: [id number], 177.8, cm, 12/25/23 9:23:00 EDT, Height/Length Dosing, 94.3, kg,12/25/23 9:23:00 EDT, Weight Dosing Start Date: 12/25/23 Status: Orderedpravastatin sodium 40 mg oral tablet (2 sources)HMG-CoA Reductase InhibitorStart: 01-03-2020 End: 87-00-5336ymfd 1 tablet by mouth once dailyPravastatin 40 mg tablet Discontinued 40 MG PO Daily December 08, 2020 12:00am December 12, 2020 4:55pm Problems Active Problems Problem ClassificationProblemDateDocumented DateEpisodic/ChronicAcute and unspecified renal failure (20 sources)Renal failure syndrome; Translations: [Unspecified kidney failure] Onset: 482483-05-6641BtzarouLatrx myocardial infarction (20 sources)Myocardial infarction; Translations: [Acute non-ST segment elevation myocardial infarction]Onset: 262299-21-1714QkgwsxcWezgtlx arrest and ventricular fibrillation (20 sources)Ventricular fibrillation; Translations: [Cardiac arrest]Onset: 168321-57-2716UdxsvfhFxjehgo on above:Problem List clean-up per request of Phys. EHR CmteCardiac dysrhythmias (20 sources)Ventricular tachycardia; Translations: [Ventricular tachycardia] Onset: 907196-16-5024TtyjcobFjbidaru (20 sources)Age-related nuclear cataract of left eye; Translations: [Age-related nuclear cataract, left eye]Onset: 658935-96-5138DjdwqypMwaauep kidney disease (20 sources)Kidney transplant status; Translations: [Chronic kidney disease stage 3]Onset: 61-94-7184AygkohtXccfrme obstructive pulmonary disease and bronchiectasis (20 sources)Chronic obstructive lung disease; Translations: [Chronic obstructive pulmonary disease, unspecified]Onset: 483484-69-1576DfhzgrpIigppzcprizq of device; implant or graft (1 source)Arteriosclerosis of coronary artery bypass graft; Translations: [Atherosclerosis of coronary arterybypass graft(s) without angina pectoris] Onset: 74-84-9034PyxyjegYrbitsvmoj disorders (5 sources)Automatic implantable cardiac defibrillator in situ; Translations: [Automatic implantable cardiac defibrillator in situ]Onset: 25-62-1985Duuntny Congestive heart failure; nonhypertensive (20 sources)Chronic systolic heart failure; Translations: [Chronic systolic (congestive) heart failure]Onset: 393477-01-7430WcdhbwgExbvgdhh atherosclerosis and other heart disease (20 sources)Coronary atherosclerosis; Translations: [Coronary atherosclerosis of benton coronary artery]Onset: 10-55-5116TiqykaqDlkcqum on above:Problem List clean-up per request of Phys. EHR CmteDeficiency and other anemia (20 sources)Increased hemoglobin; Translations: [Other hemoglobinopathies]Onset: 834657-43-5139LwgevvaMxwmudne mellitus with complications (4 sources)Cataract due to diabetes mellitus type 2; Translations: [Type 2 diabetes mellitus with diabetic cataract]50-02-0583BqctyymWegnolhm mellitus without complication (4 sources)Type 2 diabetes mellitus without complication; Translations: [Type 2 diabetes mellitus without complications]38-89-1477QcsjcpoUoqkaohrv of lipid metabolism (20 sources)Hyperlipidemia; Translations: [Other and unspecified hyperlipidemia] Onset: 959500-04-4901VclihrgMsocpdnneh disorders (20 sources)Gastroesophageal reflux disease; Translations: [Gastro-esophageal reflux disease without esophagitis]Onset: 681050-43-0866SkhcfmwFihbwucfu hypertension (20 sources)Hypertensive disorder; Translations: [Essential hypertension]Onset: 152905-03-3691DmcmrffUnxjezhcdybbe congenital anomalies (20 sources)Autosomal dominant polycystic kidney disease; Translations: [Polycystic kidney, adult type]Onset: 408030-36-8538KejuhbvNqwejzmynzjpe congenital anomalies (2 sources)H/O: congenital anomaly; Translations: [Personal history of other specified (corrected) congenital malformations of genitourinary system]Onset: 12-25-6644KmobhujbOvxd and other crystal arthropathies (20 sources)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; Translations: [Chronic gout due to renal impairment, multiple sites, without tophus (tophi)]Onset: 325593-13-6406ApcllgpBchszbclqeo of prostate (20 sources)Benign prostatic hypertrophy with outflow obstruction; Translations: [Benign prostatic hyperplasia with lower urinary tract symptoms]Onset: 75-72-4103FrfwkwiAtcumlzs disorders (20 sources)Immunosuppression; Translations: [Immunodeficiency, unspecified] Onset: 591633-81-5440MsfrjywMlfpmeallpbzt and screening for infectious disease (2 sources)Patient encounter status; Translations: [Encounter for immunization] 02-98-0301SzlsmpsfHjbpzex (2 sources)Tinea corporis; Translations: [Tinea corporis]23-12-5935Beljldik Neoplasms of unspecified nature or uncertain behavior (5 sources)Neoplastic disease; Translations: [Neoplasm of unspecified behavior of bone, soft tissue, and skin]59-18-3391MekyrsdsPwjivazhtyh deficiencies (20 sources)Active rickets; Translations: [Rickets, active]Onset: 11-08-2022 Resolved: 092067-24-0725AdooxrfGjch wounds of extremities (2 sources)Laceration of left index finger; Translations: [Laceration without foreign body of left index finger without damage to nail, initial encounter] 58-83-9729JamlrgsvMpogr aftercare (20 sources)Transplant follow-up; Translations: [Encounter for aftercare following other organ transplant]Onset: 656565-41-5899TmqhbbgLsowq aftercare (1 source)Removal of sutures done; Translations: [Encounter for removal of sutures]23-83-2536ArfmgaccTdxgn and ill-defined heart disease (1 source)Heart disease; Translations: [Heart disease, unspecified]01-06-2025 ChronicOther and unspecified benign neoplasm (1 source)Polyp of colon; Translations: [Polyp of colon]Onset: 01-11-2024 EpisodicOther circulatory disease (2 sources)Orthostatic hypotension; Translations: [Orthostatic hypotension] 21-94-7697EgknvffgTqetd endocrine disorders (20 sources)Male hypogonadism; Translations: [Testicular hypofunction]Onset: 264211-12-0804GmevjjtVaujm nervous system disorders (20 sources)Neuropathy; Translations: [Polyneuropathy, unspecified]Onset: 127730-40-2069VihnxyjFiytn non-epithelial cancer of skin (10 sources)History of malignant basal cell neoplasm of skin; Translations: [Personal history of other malignant neoplasm of skin]86-31-6631QajlmwbyOqzua nutritional; endocrine; and metabolic disorders (20 sources)Hypervitaminosis A; 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]Onset: 240855-05-4133TbsfmmjUafxf skin disorders (6 sources)Actinic keratosis; Translations: [Actinic keratosis]05-02-2024 EpisodicOther skin disorders (4 sources)Lentiginosis; Translations: [Other melanin hyperpigmentation] 51-80-2135OkczvtalCdtud skin disorders (4 sources)Seborrheic keratosis; Translations: [Other seborrheic keratosis] 57-54-7290WtuxyfiuFbkwf skin disorders (3 sources)Inflamed seborrheic keratosis; Translations: [Inflamed seborrheic keratosis]31-73-3192QrjgtlqrGxkhq skin disorders (1 source)Fistula; Translations: [Other specified disorders of the skin and subcutaneous tissue]02-36-8455CiuajvrcZdvwryq on above:left armPeri-; endo-; and myocarditis; cardiomyopathy (except that caused by tuberculosis or sexually transmitted disease) (4 sources)Cardiomyopathy; Translations: [Cardiomyopathy, unspecified]01-29-2024 ChronicScreening and history of mental health and substance abuse codes (1 source)Ex-smoker; Translations: [Personal history of tobacco use]Episodic Comment on above:Quit in 2008;Unclassified (4 sources)Patient encounter bqbpre62-51-3040Wewep infection (4 sources)Herpes zoster; Translations: [Zoster with other complications] 44-87-0148Yosmrpaj Past or Other Problems Problem ClassificationProblemDateDocumented DateEpisodic/ChronicAcute bronchitis (20 sources)Acute bronchitis; Translations: [Acute bronchitis, unspecified] Onset: 655443-68-8339MbgnayvdPelryvl dysrhythmias (2 sources)Palpitations; Translations: [Palpitations]Onset: 42-99-6649Gmarrxvi Conditions associated with dizziness or vertigo (6 sources)Dizziness; Translations: [Dizziness and giddiness]Onset: 09-18-2024 99-36-3843IbcooonjEeapbvni mellitus without complication (20 sources)Impaired fasting glycemia; Translations: [Impaired fasting glucose] Onset: 880000-85-1633QcmwoopdLedxd and electrolyte disorders (20 sources)Disorder of electrolytes; Translations: [Other disorders of electrolyte and fluid balance, not elsewhere classified]Onset: 05-04-2022 90-64-4869AxapircuTcwcpabxrhuun symptoms and ill-defined conditions (20 sources)Nocturia; Translations: [Nocturia]Onset: 01-32-9946YnhebvgiAdvh disorders (20 sources)Mood disordersOnset: 11-08-2022 Resolved: 832124-71-4872Qfnpdceendy chest pain (20 sources)Chest pain; Translations: [Chest pain, unspecified]Onset: 06-05-2023 69-29-4663KjcycfsaZwtgzko on above:Problem List clean-up per request of Phys. EHR CmteOther and unspecified benign neoplasm (20 sources)History of polyp of colon; Translations: [Personal history of colonic polyps]Onset: 79-03-2303BogrpcjoAlccd hematologic conditions (20 sources)Red blood cell disorder; Translations: [Other abnormality of red blood cells]Onset: 158484-05-9220DoqvvwujUdggd hematologic conditions (1 source)Other abnormality of red blood cells; Translations: [Other abnormality of red blood cells]Onset: 07-18-5812LosigqbcVbdmk lower respiratory disease (20 sources)Other forms of dyspnea; Translations: [Other respiratory abnormalities]Onset: [id number] screening for suspected conditions (not mental disorders or infectious disease) (20 sources)Abnormal electrocardiogram [ECG] [EKG]; Translations: [Screening for malignant neoplasm of colon done]Onset: 38-98-5875WrlbbzscXcoqg upper respiratory infections (20 sources)Upper respiratory infection; Translations: [Acute upper respiratory infection, unspecified]Onset: [id number] codes; unclassified (20 sources)At risk for infection; Translations: [Personal history of immunosupression therapy]Onset: 556861-22-1494IgdnshukMznxzes tract infections (20 sources)Pyelonephritis; Translations: [Tubulo-interstitial nephritis, not specified as acute or chronic]Onset: [id number] Results Test NameValueInterpretationReference RangeFacilityALL CBC WITH AUTO DIFFon 68-75-7519ZPJEBUZJU ABSOLUTE AUTO0.0NOMS HealthcareBasophils/100 WBC (Bld)0.6 % 0.2 - 2.0 %NOMS HealthcareEosinophils/100 WBC (Bld)1.5 %0.9 - 7.0 %NOMS HealthcareErythrocyte distribution width (RBC) [Ratio]14.0 %11.0 - 15.0 %NOMS HealthcareHematocrit (Bld) [Volume fraction]47.9 %42.0 - 54.0 %[facility] Hemoglobin (Bld) [Mass/Vol]15.5 g/dL14.0 - 18.0 g/dLNOMS HealthcareIMMATURE GRANULOCYTES ABS AUTO0.02NOMS HealthcareImmature granulocytes/100 WBC (Bld)0.3 % 0.0 - 0.5 %NOMS HealthcareInterpretation and review of laboratory results AbnormalNOMS HealthcareLYMPHOCYTES ABSOLUTE AUTO1.0LowNOMS Healthcare Lymphocytes/100 WBC (Bld)14.3 %Low20.5 - 60.0 %[facility] CenterH (RBC) [Entitic mass]29.2 pg25.9 - 34.0 pgSaint John's Breech Regional Medical CenterHC (RBC) [Mass/Vol]32.4 g/dL29.9 - 35.2 g/dLSaint John's Breech Regional Medical CenterV (RBC) [Entitic vol]90.4 fL80.0 - 94.0 fLReynolds County General Memorial HospitalMONOCYTES ABSOLUTE AUTO0.7NOSaint Joseph Hospital of KirkwoodMonocytes/100 WBC (Bld)9.7 % 1.7 - 12.0 %[facility] HospitalNEUTROPHILS ABSOLUTE AUTO5.3NOSaint [facility]wood Neutrophils/100 WBC (Bld)73.6 %43.0 - 75.0 %[facility] HospitalPlatelet mean volume (Bld) [Entitic vol]10.5 fL9.5 - 13.5 fLReynolds County General Memorial HospitalTB EO #0.1NOMS [facility] TB [id number] [facility] RBC5.30NOSSM Rehab WBC7.2NFreeman Cancer Institute CLINISYNCReynolds County General Memorial HospitalALL CBC WITH AUTO DIFFon 68-33-9517VOOXDVCDY ABSOLUTE MTFO2VFZISaint Joseph Hospital of KirkwoodBasophils/100 WBC (Bld)0.4 %0.2 - 2.0 %[facility] Eosinophils/100 WBC (Bld)1.5 %0.9 - 7.0 %[facility] HospitalErythrocyte distribution width (RBC) [Ratio]14.4 %11.0 - 15.0 %[facility] HospitalHematocrit (Bld) [Volume fraction]43.7 %42.0 - 54.0 %[facility] HospitalHemoglobin (Bld) [Mass/Vol]14.2 g/dL 14.0 - 18.0 g/dLReynolds County General Memorial HospitalIMMATURE GRANULOCYTES ABS AUTO0.01NOSaint [facility] Hospital [facility]wood Immature granulocytes/100 WBC (Bld)0.2 %0.0 - 0.5 %[facility] HospitalInterpretation and review of laboratory resultsAbnormalNOSaint Joseph Hospital of KirkwoodLYMPHOCYTES ABSOLUTE AUTO0.9LowNOSaint Joseph Hospital of KirkwoodLymphocytes/100 WBC (Bld)15.9 %Low20.5 - 60.0 %[facility] CenterH (RBC) [Entitic mass]29.3 pg25.9 - 34.0 pgSaint John's Breech Regional Medical CenterHC (RBC) [Mass/Vol]32.5 g/dL29.9 - 35.2 g/dLReynolds County General Memorial HospitalMCV (RBC) [Entitic vol]90.1 fL 80.0 - 94.0 fLReynolds County General Memorial HospitalMONOCYTES ABSOLUTE AUTO0.6NOSaint [facility] Hospital [facility] Monocytes/100 WBC (Bld)10.7 %1.7 - 12.0 %[facility] HealthcareNEUTROPHILS ABSOLUTE AUTO3.8NOSaint Joseph Hospital of KirkwoodNeutrophils/100 WBC (Bld)71.3 %43.0 - 75.0 %[facility] HealthcarePlatelet mean volume (Bld) [Entitic vol]10.3 fL9.5 - 13.5 fLReynolds County General Memorial HospitalTBH EO #0.1NOMS Wilson HealthTB [id number] Joseph Hospital of KirkwoodTB RBC4.85NOSaint Joseph Hospital of KirkwoodTB WBC5.4NOSaint [facility] Hospital [facility] KirkwoodCLINISYNCNOMS HealthcareCryotherapy, skin lesionon 03-07-7076OJBGHedrick Medical Center HealthcareOrders Onlyon 56-40-7767Gzyxhu [id number] Vishal Duke 1960 M Date Provider Department Center 01/08/2025 LASHONDA MCLEOD [facility] Family History Problem Relation Age of Onset Alzheimer's disease Mother Coronary artery disease Father Family Status - Relation Status Age at Mother Father DeceasedNormalUniversity Select [facility] Special[facility] Hospital - ColumbusCryotherapy, skin lesion on 57-71-9439TMUMHedrick Medical Center surgeryon 99-82-6696Mywzfxl obtained: written (The rationale for Mohs as well as the risks, benefits, and alternatives. The risks of infection, scarring, bleeding, prolonged wound healing, incomplete removal, allergy to anesthesia or meds, nerve injury, and recurrence were addressed.) [place] Protocol: Procedure explained and questions answered to [...] sodium bicarbonate Procedure Details: Biopsy accession number: [id number] Biopsy lab: [place] skin pathology Frozen section biopsy performed: Yes [...] of surgery? Yes When were antibiotics given? post-operativeA[facility] [place] repairon 80-32-8799Edolxsxigu: Intermediate Final length (cm): 3.4 Timeout: patient [...] or complications. Dressing type: bandage and pressure dressingNOSaint Joseph Hospital of KirkwoodNOWA HealthcareALL CBC WITH AUTO DIFFon 80-68-8989GTUMBVQRC ABSOLUTE AUTO0.1N[facility] Healthcare Basophils/100 WBC (Bld)0.8 %0.2 - 2.0 %NOMS HealthcareEosinophils/100 WBC (Bld) 1.3 %0.9 - 7.0 %[facility] HospitalErythrocyte distribution width (RBC) [Ratio]14.5 %11.0 - 15.0 %[facility] HealthcareHematocrit (Bld) [Volume fraction]46.4 %42.0 - 54.0 %[facility] HospitalHemoglobin (Bld) [Mass/Vol]15.2 g/dL14.0 - 18.0 g/dLReynolds County General Memorial HospitalIMMATURE GRANULOCYTES ABS AUTO0.03NOSaint Joseph Hospital of KirkwoodImmature granulocytes/100 WBC (Bld)0.5 %0.0 - 0.5 %[facility] HospitalInterpretation and review of laboratory resultsAbnormalNOSaint Joseph Hospital of KirkwoodLYMPHOCYTES ABSOLUTE AUTO1.1 LowNOSaint Joseph Hospital of KirkwoodLymphocytes/100 WBC (Bld)17.9 %Low20.5 - 60.0 %[facility] MCH (RBC) [Entitic mass]29.1 pg25.9 - 34.0 pgNOSaint Joseph Hospital of KirkwoodMCHC (RBC) [Mass/Vol]32.8 g/dL29.9 - 35.2 g/dLReynolds County General Memorial HospitalMCV (RBC) [Entitic vol]88.7 fL 80.0 - 94.0 fLReynolds County General Memorial HospitalMONOCYTES ABSOLUTE AUTO0.6NOMS [facility] Monocytes/100 WBC (Bld)9.3 %1.7 - 12.0 %[facility] HospitalNEUTROPHILS ABSOLUTE AUTO 4.5NOMS [facility] HealthNeutrophils/100 WBC (Bld)70.2 %43.0 - 75.0 %[facility] Platelet mean volume (Bld) [Entitic vol]10.4 fL9.5 - 13.5 fLReynolds County General Memorial HospitalTBH EO #0.1NOMS HealthcareTBH [id number] Wilson HealthTB RBC5.23NOSaint Joseph Hospital of KirkwoodTB WBC 6.3NOSaint [facility] Hospital [facility] KirkwoodCLINISYNTrident Medical CenterALL CBC WITH AUTO DIFFon 11-15-2024 BASOPHILS ABSOLUTE [id number] HealthcareBasophils/100 WBC (Bld)0.5 %0.2 - 2.0 % NOMSaint Joseph Hospital Of KirkwoodEosinophils/100 WBC (Bld)1.7 %0.9 - 7.0 %[facility] Erythrocyte distribution width (RBC) [Ratio]14.6 %11.0 - 15.0 %[facility] Hematocrit (Bld) [Volume fraction]47.4 %42.0 - 54.0 %[facility] HospitalHemoglobin (Bld) [Mass/Vol]15.4 g/dL14.0 - 18.0 g/dLReynolds County General Memorial HospitalIMMATURE GRANULOCYTES ABS AUTO0.02NOSaint Joseph Hospital of KirkwoodImmature granulocytes/100 WBC (Bld)0.3 %0.0 - 0.5 % [facility] HospitalInterpretation and review of laboratory resultsAbnormalNOSaint Joseph Hospital of KirkwoodLYMPHOCYTES ABSOLUTE AUTO1.1LowNFreeman Cancer InstituteLymphocytes/100 WBC (Bld)16.9 %Low20.5 - 60.0 %[facility] CenterH (RBC) [Entitic mass]28.7 pg25.9 - 34.0 pgSaint John's Breech Regional Medical CenterHC (RBC) [Mass/Vol]32.5 g/dL29.9 - 35.2 g/dLReynolds County General Memorial HospitalMCV (RBC) [Entitic vol]88.4 fL80.0 - 94.0 fLReynolds County General Memorial HospitalMONOCYTES ABSOLUTE AUTO0.6NOWA HealthcareMonocytes/100 WBC (Bld)9.6 %1.7 - 12.0 %[facility] HospitalNEUTROPHILS ABSOLUTE AUTO4.5NOSaint Joseph Hospital of KirkwoodNeutrophils/100 WBC (Bld)71 %43.0 - 75.0 %[facility] HospitalPlatelet mean volume (Bld) [Entitic vol]10.3 fL9.5 - 13.5 fLCox North EO #0.1NOMS [facility] [id number] [facility] RBC5.36NOMS [facility] WBC6.4NOSaint Joseph Hospital of KirkwoodCLINISYNTrident Medical CenterNo Panel Informationon 22-39-2576Yfsa of biopsy: tangential Informed consent: discussed and [...] Photo taken Amount of lidocaine used: 1.0 Critical access hospitalType of biopsy: tangential Informed consent: discussed and [...] Photo taken Amount of lidocaine used: 1.[address] [facility] Type of biopsy: tangential Informed consent: discussed [...] details: Photo taken Amount of lidocaine used: [address] [place], [place] [address]Type of biopsy: tangential Informed consent: discussed and [...] details: Photo taken Amount of lidocaine used: .[address] [place] [address] Follow-Upon 18-29-1156Wibeiw-[id number] Vishal Duke 1960 [facility] Provider Department [place] 10/17/2024 MACRINA FLOREZ None Family History Problem Relation Age of Onset Alzheimer's disease Mother Coronary artery disease Father Family Status - Relation Status Age at Mother Father Level of Service:80537 [place] OFFICE/OUTPATIENT ESTABLISHED MOD MDM 30 MIN Reason for Visit and Comments: Kidney Follow-up [[id number]] - Patient has no concerns at this time.[facility] CenterOffice Visiton 80-77-8537Kqygkl-up visit [id number] Vishal Duke 1960 M Date Provider Department Center 10/17/2024 [address] [facility] Hos Family History Problem Relation Age of Onset Alzheimer's disease Mother Coronary artery disease Father Family Status - Relation Status Age at Mother Father Level of Service:74912 [place] OFFICE/OUTPATIENT ESTABLISHED LOW MDM 20 [facility] HospitalCA ECHO DOPPLER COMPLETEon 94-98-7305[address] [address] Cardiology Report Signed Patient: VISHAL DUKE MR#: [id number] : 1960 Acct:[id number] Age/Sex: 63 / M ADM Date: 10/15/24 Loc: CARD Attending Dr: Federico Chester M.D. Ordering Physician: Federico Chester M.D. Date of Service: 10/15/24 Procedure(s): CA echo doppler complete Accession Number(s): [id number] cc: Federico Chester M.D.; ROSA M GONZALES Patient Name: VISHAL DUKE MR#: [id number] : 1960 Exam Date: 10/15/2024 Ordering Doctor: [...] Area (VTI): 3.55 cm2, 3.55 cm2 Deceleration [place]: 0.90 m/s2 Pressure Half-Time: 1.03 s Peak Velocity(Antegrade Flow): 1.03 m/s Peak Gradient(Antegrade Flow): 4.25 m (more content not included)...[facility] Radiology, Radiologist, - 10/15/2024 [place] [address] Cardiology Report Signed Patient: VISHAL DUKE MR#: [id number] : 1960 Acct:[id number] Age/Sex: 63 / M ADM Date: 10/15/24 Loc: CARD Attending Dr: Federico Chester M.D. Ordering Physician: Federico Chester M.D. Date of Service: 10/15/24 Procedure(s): CA echo doppler complete Accession Number(s): [id number] cc: Federico Chester M.D.; ROSA M GONZALES Patient Name: VISHAL DUKE MR#: [id number] : 1960 Exam Date: 10/15/2024 Ordering Doctor: [...] Area (VTI): 3.55 cm2, 3.55 cm2 Deceleration [place]: 0.90 m/s2 Pressure Half-Time: 1.03 s Peak [...] M.D. Signed By: 10/15/241432 DD/ 31 TD/TT: Dredge Operator Supervisor: SULEIMAN Wilson HealthRadiology Study observation (narrative)[facility] ECHO DOPPLER COMPLETEOrdered By: Radiologist Radiology on 00-17-1977WSJCReynolds County General Memorial Hospital Work Phone: aLL MAGNESIUMon 40-63-9198Puguympwe [Mass/Vol]1.7 mg/dLLow1.8 - 2.4 mg/dLNOWA HealthcareALL PHOSPHOROUSon 39-34-5110Zmnnzgiay [Mass/Vol]3.4 mg/dL2.6 - 4.7 mg/dLReynolds County General Memorial HospitalALL URIC ACIDon 40-44-1315Mlpls [Mass/Vol]6.7 mg/dL3.5 - 7.2 mg/dLReynolds County General Memorial HospitalCCF CMP (CMP) (FOR REMOTE [facility] USE)on 15-30-7581Giyejba [Mass/Vol]3.6 g/dL3.4 - 5.0 g/dLReynolds County General Memorial HospitalALBUMIN GLOBULIN RATIO1.2[facility] HealthcareALP [Catalytic activity/Vol]94 U/L46 - 116 U/L [facility] HealthcareALT [Catalytic activity/Vol]29 U/L16 - 63 U/LNOMS HealthcareAnion gap [Moles/Vol]16.1 mmol/LNOMS HealthcareAST [Catalytic activity/Vol]18 U/L15 - 37 U/LNOMS HealthcareBilirubin [Mass/Vol]0.6 mg/dL0.2 - 1.0 mg/dLNOSaint Joseph Hospital [facility]wood Calcium [Mass/Vol]9.1 mg/dL8.5 - 10.1 mg/dLNOMS HealthcareChloride [Moles/Vol] 107 mmol/L98 - 107 mmol/LNOMS HealthcareCO2 [Moles/Vol]26.3 mmol/L21.0 - 32.0 mmol/LNOMS HealthcareCreatinine [Mass/Vol]1.29 mg/dL0.70 - 1.30 mg/dLNOMS HealthcareGFR/1.73 sq M.predicted CKD-EPI (S/P/Bld) [Vol rate/Area]>60>=60 mL/min/1.73m 2NOMS HealthcareGlobulin (S) [Mass/Vol]3.1 g/dLNOMS Healthcare Glucose [Mass/Vol]133 mg/fEHawx90 - 106 mg/dLNOMS HealthcarePotassium [Moles/Vol]4.4 mmol/L3.5 - 5.1 mmol/LNOMS HealthcareProtein [Mass/Vol]6.7 g/dL 6.4 - 8.2 g/dLNOMS HealthcareSodium [Moles/Vol]145 mmol/L136 - 145 mmol/LNOMS HealthcareTBH EGFR-NON AF VSKROCPD65Mke>=60 mL/min/1.73m 2NOMS HealthcareUrea nitrogen [Mass/Vol]21 mg/dLHigh7.0 - 18.0 mg/dLNOMS HealthcareUrea nitrogen/Creatinine [Mass ratio]16.3 mg/mgNOMS HealthcareMETRO BILIRUBIN, DIRECT on 17-69-4612Wqmqdszoa.indirect [Mass/Vol]0.1 mg/dL0.0 - 0.2 mg/dLNOWA HealthcareNo Panel Informationon 14-74-2510Krtvxinyvbppzn and review of laboratory resultsAbnormalNOMS HealthcareCLINISYNCNARBUCKLE [facility] HealthcareNo Panel Informationon 26-48-0869Okhvytmderkgho and review of laboratory resultsAbnormal NOMS HealthcareNOWA HealthcareOffice Visiton 55-17-2970Iolkkz-up [id number] Vishal Duke 1960 M Date Provider Department Center 09/18/2024 [address] Family History Problem Relation Age of Onset Alzheimer's disease Mother Coronary artery disease Father Family Status - Relation Status Age at Mother Father Level of Service:48881 [place] OFFICE/OUTPATIENT ESTABLISHED MOD MDM 30 [facility] HospitalALL CBC WITH AUTO DIFFon 03-98-2490JHGDXGQCI ABSOLUTE [id number] HealthcareBasophils/100 WBC (Bld)0.6 %0.2 - 2.0 %NOMS HealthcareEosinophils/100 WBC (Bld)1 %0.9 - 7.0 %NOMS HealthcareErythrocyte distribution width (RBC) [Ratio]14.2 %11.0 - 15.0 %NOMS HealthcareHematocrit (Bld) [Volume fraction]48 %42.0 - 54.0 %NOMS HealthcareHemoglobin (Bld) [Mass/Vol]15.4 g/dL14.0 - 18.0 g/dLNOSaint Joseph Hospital of KirkwoodIMMATURE GRANULOCYTES ABS AUTO 0.01NOMS HealthcareImmature granulocytes/100 WBC (Bld)0.1 %0.0 - 0.5 %[facility] HealthcareInterpretation and review of laboratory resultsAbnoConemaugh Miners Medical Center LYMPHOCYTES ABSOLUTE DAMY7MnnYNNY Wilson HealthLymphocytes/100 WBC (Bld)15.2 %Low 20.5 - 60.0 %[facility] CenterH (RBC) [Entitic mass]28.7 pg25.9 - 34.0 pgSaint John's Breech Regional Medical CenterHC (RBC) [Mass/Vol]32.1 g/dL29.9 - 35.2 g/dLReynolds County General Memorial HospitalMCV (RBC) [Entitic vol]89.4 fL80.0 - 94.0 fLTHE [facility]THOPEDIC SPECIALTY [facility]OSPITAL HealthcareMONOCYTES ABSOLUTE AUTO0.7NOMS HealthcareMonocytes/100 WBC (Bld)10.6 %1.7 - 12.0 %NOMS HealthcareNEUTROPHILS ABSOLUTE AUTO4.9NOMS HealthcareNeutrophils/100 WBC (Bld)72.5 %43.0 - 75.0 %NOMSaint Joseph Hospital Of KirkwoodPlatelet mean volume (Bld) [Entitic vol]10.3 fL9.5 - 13.5 fLNOSaint Joseph Hospital of KirkwoodTBH EO #0.1NOMS HealthcareTBH [id number] Wilson HealthTB RBC5.37NOMS Wilson HealthTB WBC6.7NOMS HealthcareCLINISYNCNFreeman Cancer InstituteALL CBC WITH AUTO DIFFon 00-93-2365HJMTFNDJC ABSOLUTE [id number] HealthcareBasophils/100 WBC (Bld) 0.6 %0.2 - 2.0 %[facility] HospitalEosinophils/100 WBC (Bld)1.4 %0.9 - 7.0 %[facility] HospitalErythrocyte distribution width (RBC) [Ratio]13.4 %11.0 - 15.0 %[facility] HospitalHematocrit (Bld) [Volume fraction]47 %42.0 - 54.0 %[facility] Hemoglobin (Bld) [Mass/Vol]15.2 g/dL14.0 - 18.0 g/dLReynolds County General Memorial HospitalIMMATURE GRANULOCYTES ABS AUTO0.02NOWashington University Medical Centermature granulocytes/100 WBC (Bld)0.3 % 0.0 - 0.5 %[facility] HospitalInterpretation and review of laboratory results AbnormalReynolds County General Memorial HospitalLYMPHOCYTES ABSOLUTE AUTO1.1LowNFreeman Cancer Institute Lymphocytes/100 WBC (Bld)16.3 %Low20.5 - 60.0 %[facility] (RBC) [Entitic mass]29.2 pg25.9 - 34.0 pgSaint John's Breech Regional Medical CenterHC (RBC) [Mass/Vol]32.3 g/dL29.9 - 35.2 g/dLSaint John's Breech Regional Medical CenterV (RBC) [Entitic vol]90.2 fL80.0 - 94.0 fLReynolds County General Memorial HospitalMONOCYTES ABSOLUTE AUTO0.7NOSaint Joseph Hospital of KirkwoodMonocytes/100 WBC (Bld)10.4 % 1.7 - 12.0 %[facility] HospitalNEUTROPHILS ABSOLUTE AUTO4.6NOSaint [facility] Hospital [facility] Neutrophils/100 WBC (Bld)71 %43.0 - 75.0 %[facility] Memorial HospitalPlatelet mean volume (Bld) [Entitic vol]10.4 fL9.5 - 13.5 fLCox North EO #0.1NOMS [facility] [id number] Rehab RBC5.21NOSSM Rehab WBC6.4[facility] CLINISYNCReynolds County General Memorial HospitalDestr of lesionon 28-26-4252Xfiwdxhqth: simple Destruction method: electrodesiccation and curettage Informed consent: discussed and consent obtained Informed consent comment: The risks of the procedure were discussed, including, but not limited to risks of scarring, darker or medical records coder pigmentary changes, recurrence, infection, and incomplete removal [...] lidocaine used: 2.0 cc Previous accession number: [id number] County General Memorial HospitalDestr of lesionOrdered By: Kendy Salvador on 39-81-2699MEFPJohn J. Pershing VA Medical Center Panel Informationon 06-13-2024 Consent obtained: written (The rationale for Mohs as well as the risks, benefits, and alternatives. The risks of infection, scarring, bleeding, prolonged wound healing, incomplete removal, allergy to anesthesia or meds, nerve injury, and recurrence were addressed.) [place] Protocol: Procedure explained and questions answered to [...] sodium bicarbonate Procedure Details: Biopsy accession number: [id number] Biopsy lab: [facility] [place] Date of biopsy: 05/02/2024 Frozen section biopsy performed: Yes Specimen debulked: No Pre-Op diagnosis: squamous cell carcinoma MohsAIQ Surgical site (if tumor spans multiple areas, please select predominant area): spiritism Surgery side: left Surgical site (from skin exam): Left Confucianist Pre-operative length (cm): 0.8 Pre-operative width (cm): [...] HealthcareNo Panel InformationOrdered By: Avelina Pena on 27-11-8012NEXR HealthcareOrders Onlyon 03-19-6956Gviwef [id number] Vishal Duke 1960 M Date Provider Department Center 06/12/2024 Butch-ZACHARY CARTER [facility] [address] [place] Family History Problem Relation Age of Onset Alzheimer's disease Mother Coronary artery disease Father Family Status - Relation Status Age at Mother Father DeceasedNormalUniUniversity Hospitals TriPoint Medical CenterDocumentationon [id number] Juan Diego Dukeren Waldemar 1960 M Date Provider Department Center 06/11/2024 00056-URSO-YLMRHOLLI SANTIAGO TXP None Family History Problem Relation Age of Onset Alzheimer's disease Mother Coronary artery disease Father Family Status - Relation Status Age at Mother Father DeceasedNormalUniversTriHealth McCullough-Hyde Memorial HospitalMLR HEMOGLOBIN A1Con 92-87-0277Hcricrx [Mass/Vol]131 mg/dLNOSaint Joseph Hospital of KirkwoodWqbbiutfnaAxJ5k (Bld) [Mass fraction] 6.2 %4.5 - 6.2 %NOMS HealthcareComment on above:ADA RECOMMENDED LIMIT 4.0 - 6.0 ADA THERAPEUTIC TARGET < 7.0 ACTION SUGGESTED > 7.0 CLINISYNCNOWA HealthcareALL CBC WITH AUTO DIFFon 78-41-5953CAFBEILBJ ABSOLUTE BBRI5VLOZ HealthcareBasophils/100 WBC (Bld)0.6 %0.2 - 2.0 %N[facility] Healthcare Eosinophils/100 WBC (Bld)1.6 %0.9 - 7.0 %NOM HealthcareErythrocyte distribution width (RBC) [Ratio]13.2 %11.0 - 15.0 %NOMS HealthcareHematocrit (Bld) [Volume fraction]46.2 %42.0 - 54.0 %NOMSaint Joseph Hospital Of KirkwoodHemoglobin (Bld) [Mass/Vol]15.1 g/dL 14.0 - 18.0 g/dLNOWA HealthcareIMMATURE GRANULOCYTES ABS AUTO0.02NOWA Healthcare Immature granulocytes/100 WBC (Bld)0.3 %0.0 - 0.5 %NOM HealthcareInterpretation and review of laboratory resultsAbnormalNOWA HealthcareLYMPHOCYTES ABSOLUTE AQCM8NwzXBPF HealthcareLymphocytes/100 WBC (Bld)16 %Low20.5 - 60.0 %[facility] CenterH (RBC) [Entitic mass]30.6 pg25.9 - 34.0 pgNOCedar County Memorial HospitalHC (RBC) [Mass/Vol]32.7 g/dL29.9 - 35.2 g/dLNOMS HealthcareMCV (RBC) [Entitic vol]93.5 fL 80.0 - 94.0 fLReynolds County General Memorial HospitalMONOCYTES ABSOLUTE AUTO0.6NOSaint [facility] Monocytes/100 WBC (Bld)9.3 %1.7 - 12.0 %[facility] HospitalNEUTROPHILS ABSOLUTE AUTO 4.5NOSaint Joseph Hospital of KirkwoodNeutrophils/100 WBC (Bld)72.2 %43.0 - 75.0 %[facility] Platelet mean volume (Bld) [Entitic vol]10.2 fL9.5 - 13.5 fLReynolds County General Memorial HospitalTB EO #0.1NOMS [facility] [id number] Rehab RBC4.94NOSSM Rehab WBC 6.3NOSaint Joseph Hospital of KirkwoodCLINISYNCNFreeman Heart Institute Panel Informationon 85-42-1607Rjng of biopsy: tangential Informed consent: discussed and [...] Photo taken Amount of lidocaine used: 1.0 Critical access hospitalType of biopsy: tangential Informed consent: discussed and [...] Photo taken Amount of lidocaine used: 1.0 Critical access hospitalType of biopsy: tangential Informed consent: discussed and [...] Photo taken Amount of lidocaine used: 0.[address] [facility] Follow-Upon 99-39-8167Kgfmdu-[id number] Vishal Duke 1960 Date Provider Department [place] 04/11/2024 [id number]-PCCUUXZMACRINA WALLER None Family History Problem Relation Age of Onset Alzheimer's disease Mother Coronary artery disease Father Family Status - Relation Status Age at Mother Father Level of Service:70107 [place] OFFICE/OUTPATIENT ESTABLISHED MOD MDM 30 MIN Reason for Visit and Comments: Kidney Follow-up [[id number]] - Pt has no concerns at this time.NormalUnOhioHealth Nelsonville Health CenterALL CBC WITH AUTO DIFFon 82-16-6029FUKIFELIO ABSOLUTE GFGH1NUUY HealthcareBasophils/100 WBC (Bld)0.6 %0.2 - 2.0 %NOMS Healthcare Eosinophils/100 WBC (Bld)1.4 %0.9 - 7.0 %[facility] Memorial HospitalErythrocyte distribution width (RBC) [Ratio]13.9 %11.0 - 15.0 %[facility] Memorial HospitalHematocrit (Bld) [Volume fraction]47.3 %42.0 - 54.0 %[facility] HospitalHemoglobin (Bld) [Mass/Vol]15.7 g/dL 14.0 - 18.0 g/dLReynolds County General Memorial HospitalIMMATURE GRANULOCYTES ABS AUTO0.02[facility] Immature granulocytes/100 WBC (Bld)0.3 %0.0 - 0.5 %[facility] HospitalInterpretation and review of laboratory resultsAbnormalReynolds County General Memorial HospitalLYMPHOCYTES ABSOLUTE AUTO1.2NOMS Wilson HealthLymphocytes/100 WBC (Bld)18.6 %Low20.5 - 60.0 %[facility] CenterH (RBC) [Entitic mass]31.1 pg25.9 - 34.0 pgSaint John's Breech Regional Medical CenterHC (RBC) [Mass/Vol]33.2 g/dL29.9 - 35.2 g/dLSaint John's Breech Regional Medical CenterV (RBC) [Entitic vol]93.7 fL 80.0 - 94.0 fLReynolds County General Memorial HospitalMONOCYTES ABSOLUTE AUTO0.6NOSaint [facility] Hospital [facility] Monocytes/100 WBC (Bld)10.1 %1.7 - 12.0 %[facility] General Memorial HospitalNEUTROPHILS ABSOLUTE AUTO4.3NOMS Wilson HealthNeutrophils/100 WBC (Bld)69 %43.0 - 75.0 %[facility] Platelet mean volume (Bld) [Entitic vol]10.2 fL9.5 - 13.5 fLReynolds County General Memorial HospitalTB EO #0.1NOMS Wilson HealthTB [id number] Rehab RBC5.05NOMS [facility] WBC 6.2NOMS Wilson HealthCLINISYNCNFreeman Cancer InstituteCpuwsryzriMfZ5m (Bld) [Mass fraction]on 61-03-8818Bqymqqilzlieig and review of laboratory resultsNoMidwest Orthopedic Specialty HospitalLaboratory - Hematology and Cell countson 80-58-6081GkV2s (Bld) [Mass fraction]6.4 %[facility] HealthcareOffice Visiton 76-53-1391Feqozl-up visit [id number] Vishal Duke 1960 M Date Provider Department Center 03/18/2024 271-ZULEIKATAHAWY, EHAB CARD Andreea Hos Family History Problem Relation Age of Onset Alzheimer's disease Mother Coronary artery disease Father Family Status - Relation Status Age at Mother Father Level of Service:82309 [place] OFFICE/OUTPATIENT ESTABLISHED LOW MDM 20 [facility] HospitalALL CBC WITH AUTO DIFFon 65-07-9285QBEQZJUSO ABSOLUTE VNAD0IMQY HealthcareBasophils/100 WBC (Bld)0.6 %0.2 - 2.0 %NOMS HealthcareEosinophils/100 WBC (Bld)1.5 %0.9 - 7.0 %NOMS HealthcareErythrocyte distribution width (RBC) [Ratio]14.5 %11.0 - 15.0 %NOMS HealthcareHematocrit (Bld) [Volume fraction]49.5 %42.0 - 54.0 %NOMS HealthcareHemoglobin (Bld) [Mass/Vol]16.3 g/dL14.0 - 18.0 g/dLNOSaint Joseph Hospital of KirkwoodIMMATURE GRANULOCYTES ABS AUTO 0.02NOMS HealthcareImmature granulocytes/100 WBC (Bld)0.3 %0.0 - 0.5 %NOMS HealthcareInterpretation and review of laboratory resultsAbnormalNOSaint Joseph Hospital of Kirkwood LYMPHOCYTES ABSOLUTE AUTO0.9LowNOMS Wilson HealthLymphocytes/100 WBC (Bld)14.3 %Low 20.5 - 60.0 %[facility] CenterH (RBC) [Entitic mass]30.5 pg25.9 - 34.0 pgNOCedar County Memorial HospitalHC (RBC) [Mass/Vol]32.9 g/dL29.9 - 35.2 g/dLSaint John's Breech Regional Medical CenterV (RBC) [Entitic vol]92.7 fL80.0 - 94.0 fLNOWA HealthcareMONOCYTES ABSOLUTE AUTO0.6NOMS HealthcareMonocytes/100 WBC (Bld)8.5 %1.7 - 12.0 %NOMS HealthcareNEUTROPHILS ABSOLUTE AUTO4.9NOMS HealthcareNeutrophils/100 WBC (Bld)74.8 %43.0 - 75.0 %NOMS HealthcarePlatelet mean volume (Bld) [Entitic vol]10.3 fL9.5 - 13.5 fLNOSaint Joseph Hospital of KirkwoodTBH EO #0.1NOMS [facility] [id number] Rehab RBC5.34NOSSM Rehab WBC6.6NOSaint Joseph Hospital of KirkwoodCLINISYNCNARBUCKLE [facility] HealthcareAmbulatory Visit Summaryon 95-62-1123Qxtpqnlxlb Visit SummaryAmbulatory Visit Summary VISHAL DUKE :1960 [...] you for choosing us for your care. [facility] 44-41-6027Xkuatnqhb Reminders From: Marie Lobato To: EU - Administrative; Sent: 03/04/2024 15:07:27 EST Show up: 05/18/2025 15:07:00 EST Subject: Ambulatory Reminder Due Date/Time: 03/01/2026 15:07:00 EST Reminder/Recall Patient needs scheduled with PRW for a 2 yr f/u with PSA, due back in February of 2026NoSt. Vincent HospitalUrology Office/Clinic Noteon 03-04-2024 Urology Office/Clinic NoteUrology Office/Clinic [...] 01/01/18. S/p Robotic assisted bilateral nephrectomy 01/24/[address] [facility] by Dr. Bobby Maldonado. Per pt, kidney gtadpca70 lbs. Most recent renal fxn 02/01/24 - BUN 25, Cr 1.45, GFR 49. No proteinuria per UA today. States baseline Cr 1.0-1.1. Was infected at time of recent blood work. 3. Glucosuria (R81: Glycosuria) UA todya >=1000 mg/dL. On . Follow-up With When Contact Information LEONARDA FRANK, Reji Farrell, URL [facility] [address] [place] [address] [phone] Additional Instructions: 2 yrs w/ PSA Patient [...] Recorded influenza virus vaccine, (more content not included)...[facility] Charles HospitalComment on above:Result Comment: Electronically Signed By: Reji BROWER MD\.br\Date and Time Signed: 03/04/24 15:03 EST\.br\Electronically Co-Signed By: Esther Pan\.br\Date and Time Co-Signed: 03/04/24 15:02 EST Documentationon [id number] Vishal Duke 1960 M Date Provider Department Center 02/02/2024 3373-PB ROMO None Family History Problem Relation Age of Onset Alzheimer's disease Mother Coronary artery disease Father Family Status - Relation Status Age at Mother Father DeceasedNormalUniversity of Christus [facility] – San MarcosALL CBC WITH AUTO DIFFon 34-05-4423JXTTRAAKH ABSOLUTE BXXL9IOXE HealthcareBasophils/100 WBC (Bld)0.5 %0.2 - 2.0 %NOMS HealthcareEosinophils/100 WBC (Bld)1 %0.9 - 7.0 %NOMSaint [facility] Of [facility] Erythrocyte distribution width (RBC) [Ratio]13.6 %11.0 - 15.0 %[facility] Hematocrit (Bld) [Volume fraction]50.4 %42.0 - 54.0 %[facility] HospitalHemoglobin (Bld) [Mass/Vol]17 g/dL14.0 - 18.0 g/dLNOWA HealthcareIMMATURE GRANULOCYTES ABS AUTO0.03NOWA HealthcareImmature granulocytes/100 WBC (Bld)0.4 %0.0 - 0.5 %NOMSaint Joseph Hospital Of KirkwoodInterpretation and review of laboratory resultsAbnormalNOSaint Joseph Hospital of [facility]wood LYMPHOCYTES ABSOLUTE AUTO0.9LowNOSaint Joseph Hospital of KirkwoodLymphocytes/100 WBC (Bld)11.7 %Low 20.5 - 60.0 %[facility] CenterH (RBC) [Entitic mass]30.5 pg25.9 - 34.0 pgNOCedar County Memorial HospitalHC (RBC) [Mass/Vol]33.7 g/dL29.9 - 35.2 g/dLSaint John's Breech Regional Medical CenterV (RBC) [Entitic vol]90.3 fL80.0 - 94.0 fLNOMS HealthcareMONOCYTES ABSOLUTE AUTO0.8NOMS HealthcareMonocytes/100 WBC (Bld)10.6 %1.7 - 12.0 %NOMS HealthcareNEUTROPHILS ABSOLUTE AUTO5.6NOMS HealthcareNeutrophils/100 WBC (Bld)75.8 %High43.0 - 75.0 % NOMS HealthcarePlatelet mean volume (Bld) [Entitic vol]10.3 fL9.5 - 13.5 fLNOMS HealthcareTBH EO #0.1NOMS HealthcareTBH [id number] HealthcareTBH RBC5.58NOMS HealthcareTBH WBC7.4NOMS HealthcareCLINISYNCNOMS Mznfocmnqm08bm Transplant Pharmacist - Drug Information The patient's [...] Lee, PharmD, BCPS Solid Organ Transplant Clinical PharmacistNormalUniversity [facility] Hospital - ColumbusTelephoneon [id number] Vishal Duke 1960 Date Provider Department Center 01/29/2024 3915-GUERO LEE TXP None Family History Problem Relation Age of Onset Alzheimer's disease Mother Coronary artery disease Father Family Status - Relation Status Age at Mother Father Reason for Visit and Comments: Transplant Pharmacist - Drug Information [[id number]]NormalUnOhioHealth Nelsonville Health CenterMHPT PSA, DIAGNOSTICon 97-85-2732GPNNXHGG SPECIFIC ANTIGEN DX0.91 ng/mLNINF - 4.00 ng/mLNOMS HealthcareCLINISYNCNOMS HealthcareResult Letter Officeon 87-61-3915Cxmomb Letter OfficeResult Letter Office January 23, 2024 [place] [address] : 1960 Below is a summary of [...] reminder letter prior to your next duedate. [facility] [phone] Health West Hospitalurgical Pathology Reporton [id number] Pathology ReportFishR [facility] [address] [place] [address]- Surgical Pathology Report Collected Date/Time: 01/11/2024 09:34 EDT Pathologist: Demond FRANK PhD, Karla Nielson Received Date/Time: 01/11/2024 11:19 EDT Gladys FRANK, Xochilt Graham MD, Xochilt Butler Surgical Pathology Report - 01/17/2024 16:44 EDT [...] characteristics were determined by the [facility]. They have not been cleared or approved by the US Food and Drug Administration. The FDA has determined that such clearance or approval is not necessary. These tests are used for clinical purposes. They should not be regarded as investigational or for research. Appropriate positive and negative controls are performed and are acceptable. [facility] Charles HospitalComment on above:Performed By: #### [id number] #### [facility] [address], [place] [address]Jfbv OR Intraoperative Recordon 27-45-0603Uxrx OR Intraoperative RecordMain OR Intraoperative Record IntraOp Document Type FT Summary Primary Physician: Xochilt Graham MD Finalized Date/Time: 01/12/24 11:15:33 Pt. Name: VISHAL DUKE /Sex: 1960 Male Med Rec #: [id number] Physician: Xochilt Graham MD Financial #: [id number] Pt. Type: O Room/Bed: / Admit/Disch: 01/11/24 [...] 2 Entry 3 Case Attendee Nick MONTEMAYOR, CRYPTOANALYSIS TEACHER, [place] Nicky GODWIN, Monie Guzman Role Performed CRYPTOANALYSIS TEACHER Circulation Clerk - Primary Scrub - Primary Time In [...] Performed Staff - Other Surgeon - Primary CRYPTOANALYSIS TEACHER Time In 01/11/24 09:34:00 01/11/24 09:24:00 01/11/24 [...] and symptoms of physic (more content not included)...St. Charles HospitalDisfranciscan children's Instructionson 12-07-8598Swtviuusz Instructions Discharge Instructions VISHAL DUKE :1960 Visit [...] FRANK, Reji Farrell Where: [facility] [place] [id number]- New Follow Up Appointments after Discharge Follow Up with Gladys FRANK, JIN Saez, [facility] When: Comments: Call for any problems. [...] are over the a (more content not included)...[facility] Comment on above:Result Comment: Electronically Signed By: Maria Victoria Zaman I\.adam\Date and Time Signed: 01/11/24 10:21 EDTInpatient Patient Summaryon 06-90-1323Ikwanorrr Patient SummaryInpatient Patient Summary [place] [id number] [facility] Clinical Discharge Instructions PERSON INFORMATION Name: VISHAL DUKE PHYSICIANS Admitting Physician: Xochilt Graham MD Attending Physician: Xochilt Graham MD PCP: JANET FRANK, ROSA M Palomino Discharge Diagnosis: Chronic GERD; Colon polyps Comment: PATIENT EDUCATION INFORMATION Instructions: Medication Leaflets: Follow up: Type Location Start Finish State U[facility] Office Visit [facility] Doran 01/29/2024 10:30 AM 01/29/2024 10:45 [...] 2 times a day. tacrolimus 1 Milligram. Comment:St. Charles HospitalMain OR PACU II Recordon 10-88-4848Boos OR PACU II RecordMain OR PACU II Record PACU Phase II Document Type FT Summary Primary Physician: Xohcilt Graham MD Finalized Date/Time: 01/11/24 10:56:37 Pt. Name: VISHAL DUKE/Sex: 1960 Male Med Rec #: [id number] Physician: Xochilt Graham MD Financial #: [id number] Pt. Type: O Room/Bed: / Admit/Disch: 01/11/24 [...] Signed By: Maria Victoria Zaman I 01/11/24 10:56St. Charles HospitalMain OR Preoperative Recordon 80-37-7891Vigr OR Preoperative RecordMain OR Preoperative Record Holding Area Document Type FT Summary Primary Physician: Xochilt Graham MD Finalized Date/Time: 01/11/24 09:12:50 Pt. Name: VISHAL DUKE D.O.B./Sex: 1960 Male Med Rec #: [id number] Physician: Xochilt Graham MD Financial #: [id number] Pt. Type: O Room/Bed: / Admit/Disch: 01/11/24 [...] Signatures Signed By: Stacey Hamilton RN 01/11/24 09:12[facility] HospitalOutpatient Surgery Discharge Instructionon 24-13-9258Oeodetebaw Surgery Discharge InstructionOutpatient Surgery Discharge Instruction [place] [id number] Patient Discharge Instructions PERSON INFORMATION Name: VISHAL [...] Location Start Finish State URO Office Visit [facility] Andreea 01/29/2024 10:30 AM 01/29/2024 10:45 [...] to serve you. Thank you for choosing [facility] HERE ARE THE MEDICATION CHANGES [...] 1 Milligram. PATIENT EDUCATION INFORMATION Instructions: Medication Leaflets:St. Charles HospitalALL CBC WITH AUTO DIFFon 52-92-8020MOUCIQOKP ABSOLUTE AUTO0.0NOMS HealthcareBasophils/100 WBC (Bld)0.6 % 0.2 - 2.0 %NOMS HealthcareEosinophils/100 WBC (Bld)1.6 %0.9 - 7.0 %NOMS HealthcareErythrocyte distribution width (RBC) [Ratio]13.3 %11.0 - 15.0 %NOMS HealthcareHematocrit (Bld) [Volume fraction]48.4 %42.0 - 54.0 %[facility] Hemoglobin (Bld) [Mass/Vol]15.7 g/dL14.0 - 18.0 g/dLReynolds County General Memorial HospitalIMMATURE GRANULOCYTES ABS AUTO0.03NOWashington University Medical Centermature granulocytes/100 WBC (Bld)0.5 % 0.0 - 0.5 %[facility] HospitalInterpretation and review of laboratory results AbnormalReynolds County General Memorial HospitalLYMPHOCYTES ABSOLUTE AUTO1.0LowReynolds County General Memorial Hospital Lymphocytes/100 WBC (Bld)15.2 %Low20.5 - 60.0 %[facility] CenterH (RBC) [Entitic mass]30.3 pg25.9 - 34.0 pgSaint John's Breech Regional Medical CenterHC (RBC) [Mass/Vol]32.4 g/dL29.9 - 35.2 g/dLSaint John's Breech Regional Medical CenterV (RBC) [Entitic vol]93.4 fL80.0 - 94.0 fLReynolds County General Memorial HospitalMONOCYTES ABSOLUTE AUTO0.6Re[facility] HospitalMonocytes/100 WBC (Bld)9.7 % 1.7 - 12.0 %[facility] HospitalNEUTROPHILS ABSOLUTE AUTO4.5[facility] Neutrophils/100 WBC (Bld)72.4 %43.0 - 75.0 %[facility] Memorial HospitalPlatelet mean volume (Bld) [Entitic vol]10.8 fL9.5 - 13.5 fLReynolds County General Memorial HospitalTB EO #0.1N[facility] TB [id number] Rehab RBC5.18NOMS [facility] WBC6.3NOSaint Joseph Hospital of [facility]wood CLINISYNCTHE ORTHOPEDIC SPECIALTY [facility]PITAL HealthcareAmbulatory Visit Summaryon 96-45-9517Kzmqbscwsk Visit SummaryAmbulatory Visit Summary VISHAL DUKE :1960 [...] Appointments 2023 10:00 AM EDT With: Where: [facility] Surgical Services Monday 10:30 AM EDT With: LEONARDA FRANK, Reji Farrell Where: [facility] [place] [phone]- Medications What How Much When Why Instructions [...] you for choosing us for your care. [facility] HospitalGastroenterology Office/Clinic Noteon 65-12-3117Cgodrieskqpxxoqv Office/Clinic NoteGastroenterology Office/Clinic Note Chief Complaint Colonoscopy HPI Staff Patient is a(n) year old male who presents today for a 10 year colonoscopy recall. Denies Fhx colon cancer. Denies previous EGD. Hx hyperplastic polyps. Denies n/v/c/d, abd pain, bloody or mucus stools. Blood thinners? Plavix Dr Chester [facility] prescribes Plavix GLP-1 agonists? no Colonoscopy 02/04/2013 w/Dr. Cerrato: DIAGNOSIS: Two sigmoid polyps as described above, status post snare polypectomy. Pathology: Sigmoid colon, biopsy: Hyperplastic polyp History of Present Illness Doing well, occasional chest burning overnight resolves with nitro, he checked with her superintendent house, does not seem to be cardiac per [...] bedtime), # 90 tab(s), Refills(s) 0, Pharmacy: [facility] #[facility], 177.8, cm, 12/25/23 9:23:00 EDT, Height/Length Dosing, 94.3, kg, :23:00 EDT, Weight Dosing Colonoscopy (Hospital Procedure) 2. History of colon polyps (Z86.010: Personal history of colonic polyps) Ordered: famotidine, 40 mg = 1 tab(s), Oral, Once a day (at bedtime), # 90 tab(s), Refills(s) 0, Pharmacy: [facility], 177.8, cm, 12/25/23 9:23:00 EDT, Height/Length Dosing, 94.3, kg, :23:00 EDT, Weight Dosing Colonoscopy (Hospital Procedure) 3. Kidney transplanted (Z94.0: Kidney transplant status) Due to PCOS, status post kidney transplant 2017 and recent resection of the polycystic kidneys due to pressure on organs Ordered: famotidine, 40 mg = 1 tab(s), Oral, Once a day (at bedtime), # 90 tab(s), Refills(s) 0, Pharmacy: [facility] #[facility], 177.8, cm, 12/25/23 9:23:00 EDT, Height/Length [...] bedtime), # 90 tab(s), Refills(s) 0, Pharmacy: [facility], 177.8, cm, 12/25/23 9:23:00 EDT, Height/Length Dosing, 94.3, kg, :23:00 EDT, Weight Dosing 5. Chronic GERD (K21.9: Gastro-esophageal reflux disease without esophagitis) Controlled with Nexium, improved after kidney removals Start Pepcid at bedtime as needed, may use Tums and Gaviscon as needed EGD Ordered: famotidine, 40 mg = 1 tab(s), Oral, Once a day (at bedtime), # 90 tab(s), Refills(s) 0, Pharmacy: [facility] #[facility], 177.8, cm, 12/25/23 9:23:00 EDT, Height/Length Dosing, 94.3, kg, 249:23:00 EDT, Weight Dosing Follow-up No qualifying data [...] Alzheimer's disease: Mother. Immunizati (more content not included)...[facility] Comment on above:Result Comment: Electronically Signed By: Gladys FRANK, Xochilt Butler\.br\Date and Time Signed: 12/25/23 09:51 EDTCA ECHO DOPPLER COMPLETEon 48-88-6286[place] [address] Cardiology Report Signed Patient: VISHAL DUKE MR#: [id number] : 1960 Acct:[id number] Age/Sex: 62 / M ADM Date: 12/07/23 Loc: CARD Attending Dr: Federico Chester M.D. Ordering Physician: Federico Chester M.D. Date of Service: 12/07/23 Procedure(s): CA echo doppler complete Accession Number(s): [id number] cc: Federico Chester M.D.; ROSA M GONZALES Patient Name: VISHAL DUKE MR#: [id number] : 1960 Exam Date: 12/07/2023 Ordering Doctor: [...] not included)...TBHRadiology, Radiologist, MD - 12/07/2023 [place] [address] Cardiology Report Signed Patient: VISHAL DUKE MR#: [id number] : 1960 Acct:[id number] Age/Sex: 62 / M ADM Date: 12/07/23 Loc: CARD Attending Dr: Federico Chester M.D. Ordering Physician: Federico Chester M.D. Date of Service: 12/07/23 Procedure(s): CA echo doppler complete Accession Number(s): [id number] cc: Federico Chester M.D.; ROSA M GONZALES Patient Name: VISHAL DUKE MR#: [id number] : 1960 Exam Date: 12/07/2023 Ordering Doctor: [...] Signed By: 12/07/23 1135 DD/ 1134 TD/TT: Dredge Operator Supervisor: [facility] HospitalRadiology Study observation (narrative)[facility] ECHO DOPPLER COMPLETEOrdered By: Radiologist Radiology on 21-30-1386FAYNReynolds County General Memorial Hospital Work Phone: TACROLIMUS (FK506), BLOODon 49-21-1858KSTSIHEREK (FK506), BLOOD5.5 ng/mL2.0 - 20.0 ng/mLNARBUCKLE MEMORIAL HOSPITAL – SULPHUR HealthcareComment on above:This test was developed and its performance characteristics determined by [facility]. It has not been cleared or approved by the Food and Drug Administration. Trough (immediately following transplant) 15.0 Trough (steady state, 2 weeks or more after transplant): 3.0 - 8.0 Performed by LC-MS/MS technology. Performed at: [address] [id number] Cluster Bore Operator: Evan Orozco MD, Phone: [phone] [facility]iFK[facility] (TACROLIMUS) WHOLE BLOODon 44-42-5318Heguuruwlr (FK506), Blood6.0 ng/mLNormal2.0-20.0Brown Memorial HospitalComment on above: Result Comment: Trough (immediately following transplant) 15.0 . Trough (steady state, 2 weeks or more after transplant): 3.0 - 8.0 . Performed by LC-MS/MS technology.Performed By: #### PHOS, URIC, MG, CMP, DBIL, LIPID #### [facility] [address] [place] [address] Dr. Karla JohnsonK VIRUS PCR QUANTon 13-01-0382WZH DNA QUANT PCR PLASMANegative NormalNegativeThe [facility] Hospital - TrumbullComment on above:Result Comment: No BK DNA detected. . The linear range of the assay is 22 - 100,000,000 IU/mL.Performed By: #### PHOS, URIC, MG, CMP, DBIL, LIPID #### [facility] [address] [place] [address] Dr. Karla LagosLog10 BKV DNA PlasmaNormalThe [facility] - TrumbullComment on above: Performed By: #### PHOS, URIC, MG, CMP, DBIL, LIPID #### [facility] [address] [place] [address] Dr. Karla LagosBILIRUBIN CONJUGATED (DIRECT)on 04-25-2675FXQI, CONJUGATED0.2 mg/dLNormal0.0-0.2The [facility] - TrumbullComment on above:Performed By: #### PHOS, URIC, MG, CMP, DBIL, LIPID #### [facility] [address] [place] [address] Dr. Karla Bruce AUTO DIFFon 62-56-4956CRWC #0.1 103/ulNormal0.0-0.1The [facility] - TrumbullComment on above:Performed By: #### PHOS, URIC, MG, CMP, DBIL, LIPID #### [facility] [address] [place] [address] Dr. Karla LagosBasophils/100 WBC (Bld)1.0 %Normal0.2-2.0The [facility] Comment on above:Performed By: #### PHOS, URIC, MG, CMP, DBIL, LIPID #### [facility] [address] [place] [address] Dr. Yilan ChangEO #0.1 103/ulNormal0.0-0.7The [facility] - TrumbullComment on above: Performed By: #### PHOS, URIC, MG, CMP, DBIL, LIPID #### [facility] [address] [place] [address] Dr. Karla Dioposinophils/100 WBC (Bld)1.3 %Normal0.9-7.0The [facility] Comment on above:Performed By: #### PHOS, URIC, MG, CMP, DBIL, LIPID #### [facility] [address] [place] [address] Dr. Karla Dioprythrocyte distribution width (RBC) [Ratio]14.0 %Dwjxmx39.0-15.0 The [facility] - TrumbullComment on above:Performed By: #### PHOS, URIC, MG, CMP, DBIL, LIPID #### [facility] [address] [place] [address] Dr. Karla LagosHematocrit (Bld) [Volume fraction]52.7 %Urggjf77.0-54.0The [facility] Municipal Hospitalment on above:Performed By: #### PHOS, URIC, MG, CMP, DBIL, LIPID #### [facility] [address] [place] [address] Dr. Karla LagosHemoglobin (Bld) [Mass/Vol]17.0 g/vRIszklm00.0-18.0The [facility] Hospitalment on above:Performed By: #### PHOS, URIC, MG, CMP, DBIL, LIPID #### [facility] [address] [place] [address] Dr. Karla Youssef #0.03 10e3/ulNormal0.00-0.03The [facility] Hospitalment on above:Performed By: #### PHOS, URIC, MG, CMP, DBIL, LIPID #### [facility] [address] [place] [address] Dr. Karla Youssef %0.4 %Normal0.0-0.5The [facility] - TrumbullComment on above: Performed By: #### PHOS, URIC, MG, CMP, DBIL, LIPID #### [facility] [address] [place] [address] Dr. Karla Gaming #1.1 103/ulCritically low1.2-3.8The [facility] Comment on above:Performed By: #### PHOS, URIC, MG, CMP, DBIL, LIPID #### [facility] [address] [place] [address] Dr. Karla Rodriguezhocytes/100 WBC (Bld)16.0 %Critically low20.5-60.0The [facility] - TrumbullComment on above:Performed By: #### PHOS, URIC, MG, CMP, DBIL, LIPID #### [facility] [address] [place] [address] Dr. Karla Lehman DIFF REQNONormalThe [facility] - TrumbullComment on above: Performed By: #### PHOS, URIC, MG, CMP, DBIL, LIPID #### [facility] [address] [place] [address] Dr. Karla Snider (RBC) [Entitic mass]29.9 etQmbzna30.9-34.0The [facility] - TrumbullComment on above:Performed By: #### PHOS, URIC, MG, CMP, DBIL, LIPID #### [facility] [address] [place] [address] Dr. Karla Snider (RBC) [Mass/Vol]32.3 g/fOVlislu56.9-35.2The [facility] - TrumbullComment on above:Performed By: #### PHOS, URIC, MG, CMP, DBIL, LIPID #### [facility] [address] [place] [address] Dr. Karla Snider (RBC) [Entitic vol]92.6 bPSuhtvy46.0-94.0The [facility] - TrumbullComment on above:Performed By: #### PHOS, URIC, MG, CMP, DBIL, LIPID #### [facility] [address] [place] [address] Dr. Karla Dave #0.7 103/ulNormal0.3-0.8The [facility] - TrumbullComment on above:Performed By: #### PHOS, URIC, MG, CMP, DBIL, LIPID #### [facility] [address] [place] [address] Dr. Karla Gomezocytes/100 WBC (Bld)10.6 %Normal1.7-12.0The [facility] Comment on above:Performed By: #### PHOS, URIC, MG, CMP, DBIL, LIPID #### [facility] [address] [place] [address] Dr. Karla Tejeda #5.0 103/ulNormal1.4-6.5The [facility] Municipal Hospitalment on above:Performed By: #### PHOS, URIC, MG, CMP, DBIL, LIPID #### [facility] [address] [place] [address] Dr. Karla Adrianutrophils/100 WBC (Bld)70.7 %Hkgcpf99.0-75.0The [facility] on above:Performed By: #### PHOS, URIC, MG, CMP, DBIL, LIPID #### [facility] [address] [place] [address] Dr. Karla Wallacelet mean volume (Bld) [Entitic vol]10.3 fLNormal9.5-13.5The [facility]ment on above:Performed By: #### PHOS, URIC, MG, CMP, DBIL, LIPID #### [facility] [address] [place] [address] Dr. Karla LagosPLT263 103/laFtqaam621-941Jnb [facility]ment on above: Performed By: #### PHOS, URIC, MG, CMP, DBIL, LIPID #### [facility] [address] [place] [address] Dr. Karla LagosRBC5.69 106/ulNormal4.70-6.10The [facility]ment on above:Performed By: #### PHOS, URIC, MG, CMP, DBIL, LIPID #### [facility] [address] [place] [address] Dr. Yilan ChangWBC7.0 103/ulNormal4.0-11.0[facility]ment on above: Performed By: #### PHOS, URIC, MG, CMP, DBIL, LIPID #### [facility] [address] [place] [address] Dr. Karla BuchananID PROFILEon [id number]-HDL RATIO NORMSEE [facility] - AndersonComment on above:Result Comment: 3.3 - 4.4 LOW RISK 4.4 - 7.1 AVERAGE RISK 7.1 - 11.0 MODERATE RISK >11.0 HIGH RISKPerformed By: #### PHOS, URIC, MG, CMP, DBIL, LIPID #### [facility] [address] [place] [address] Dr. Karla Bishopesterol [Mass/Vol]137 mg/dLNormal<=200The [facility] Comment on above:Performed By: #### PHOS, URIC, MG, CMP, DBIL, LIPID #### [facility] [address] [place] [address] Dr. Karla Bishopesterol in HDL [Mass/Vol]45 mg/oIUxtkhm64-40NslBrown Memorial HospitalComaleda e. [facility] on above:Performed By: #### PHOS, URIC, MG, CMP, DBIL, LIPID #### [facility] [address] [place] [address] Dr. Karla Bishopesterol in LDL [Mass/Vol]59.0 mg/dLNoMercy Health Allen HospitalComaleda e. [facility] on above:Performed By: #### PHOS, URIC, MG, CMP, DBIL, LIPID #### [facility] [address] [place] [address] Dr. Karla Mueller.total/Cholesterol in HDL [Mass ratio]3.0 {ratio} NormalProMedica Memorial Hospital on above:Performed By: #### PHOS, URIC, MG, CMP, DBIL, LIPID #### [facility] [address] [place] [address] Dr. Karla Martinez NORMAL> or = 60 mg/dl - LOW CARDIOVASCULAR RISK <40 mg/dl - HIGH CARDIOVASCULAR RISKBluffton HospitalComaleda [facility]. [facility] on above:Performed By: #### PHOS, URIC, MG, CMP, DBIL, LIPID #### [facility] [address] [place] [address] Dr. Karla Matute CALC NORMALSEE BELOWBluffton HospitalComment on above:Result Comment: <100 mg/dl OPTIMAL 100 - 129 mg/dl NEAR OR ABOVE OPTIMAL 130 - 159 mg/dl BORDERLINE HIGH 160 - 189 mg/dl HIGH >190 mg/dl VERY HIGH Performed By: #### PHOS, URIC, MG, CMP, DBIL, LIPID #### [facility] [address] [address] [address] Karla LagosTriglyceride [Mass/Vol]165 mg/dLCritically high<=150The [facility] on above:Performed By: #### PHOS, URIC, MG, CMP, DBIL, LIPID #### [facility] [address] [place] [address] Dr. Karla LagosVLDL CALC33.0 mg/dLBluffton HospitalComment on above: Performed By: #### PHOS, URIC, MG, CMP, DBIL, LIPID #### [facility] [address] [place] [address] Dr. Karla LagosMAGNESIUMon [id number] [Mass/Vol]1.7 mg/dLCritically low 1.8-2.4The [facility]Comaled[facility] on above:Performed By: #### PHOS, URIC, MG, CMP, DBIL, LIPID #### [facility] [address] [place] [address] Dr. Karla LagosPHOSPHORUSon [id number] [Mass/Vol]3.6 mg/dLNormal2.6-4.7 The [facility]Com[facility] on above:Performed By: #### PHOS, URIC, MG, CMP, DBIL, LIPID #### [facility] [address] [place] [address] Dr. Karla LagosPROF 14(COMP METB)on [id number] [Mass/Vol]4.0 g/dLNormal 3.4-5.0The [facility] TrumbullComment on above:Performed By: #### PHOS, URIC, MG, CMP, DBIL, LIPID #### [facility] [address] [place] [address] Dr. Karla LagosAlbumin/Globulin [Mass ratio]1.1 {ratio}NormalThe [facility] TrumbullComment on above:Performed By: #### PHOS, URIC, MG, CMP, DBIL, LIPID #### [facility] [address] [place] [address] Dr. Karla Maldonado [Catalytic activity/Vol]96 U/WHfsffi07-543Fpw [facility] TrumbullComment on above:Performed By: #### PHOS, URIC, MG, CMP, DBIL, LIPID #### [facility] [address] [place] [address] Dr. Karla Velasquez [Catalytic activity/Vol]42 U/RYffevh47-20Eih [facility] TrumbullComment on above:Performed By: #### PHOS, URIC, MG, CMP, DBIL, LIPID #### [facility] [address] [place] [address] Dr. Karla De La Vega gap [Moles/Vol]12.9 mmol/LNormalThe [facility] Comment on above:Performed By: #### PHOS, URIC, MG, CMP, DBIL, LIPID #### [facility] [address] [place] [address] Dr. Karla Chow [Catalytic activity/Vol]22 U/FMnneds17-81Xni [facility] on above:Performed By: #### PHOS, URIC, MG, CMP, DBIL, LIPID #### [facility] [address] [place] [address] Dr. Karla Nguyenirubin [Mass/Vol]0.7 mg/dLNormal0.2-1.0The [facility] Comment on above:Performed By: #### PHOS, URIC, MG, CMP, DBIL, LIPID #### [facility] [address] [place] [address] Dr. Karla LagosCalcium [Mass/Vol]9.4 mg/dLNormal8.5-10.1The [facility] Comment on above:Performed By: #### PHOS, URIC, MG, CMP, DBIL, LIPID #### [facility] [address] [address] [address] Karla LagosChloride [Moles/Vol]103 mmol/GGvcbow47-227Din [facility] Comment on above:Performed By: #### PHOS, URIC, MG, CMP, DBIL, LIPID #### [facility] [address] [place] [address] Dr. Karla LagosCO2 [Moles/Vol]27.8 mmol/FAvqppa01.0-32.0The [facility] Comment on above:Performed By: #### PHOS, URIC, MG, CMP, DBIL, LIPID #### [facility] [address] [place] [address] Dr. Karla LagosCreatinine [Mass/Vol]1.28 mg/dLNormal0.70-1.30The [facility]ullComment on above:Performed By: #### PHOS, URIC, MG, CMP, DBIL, LIPID #### [facility] [address] [place] [address] Dr. Karla DiopGFR-AF INDONESIAN>60Normal>=60The [facility]ullComment on above:Performed By: #### PHOS, URIC, MG, CMP, DBIL, LIPID #### [facility] [address] [place] [address] Dr. Karla DiopGFR-NON AF BCJFKVWX62 mL/min/1.74q9Dqccgbssla low>=60The [facility]ullComment on above:Performed By: #### PHOS, URIC, MG, CMP, DBIL, LIPID #### [facility] [address] [place] [address] Dr. Karla LagosGlobulin (S) [Mass/Vol]3.5 g/dLNormalThe [facility]ullComment on above:Performed By: #### PHOS, URIC, MG, CMP, DBIL, LIPID #### [facility] [address] [address] [address] Karla LagosGlucose [Mass/Vol]123 mg/dLCritically jsqh99-683Wkt [facility]ullComment on above:Performed By: #### PHOS, URIC, MG, CMP, DBIL, LIPID #### [facility] [address] [place] [address] Dr. Karla LagosPotassium [Moles/Vol]4.7 mmol/LNormal3.5-5.1The [facility] Comment on above:Performed By: #### PHOS, URIC, MG, CMP, DBIL, LIPID #### [facility] [address] [address] [address] Karla LagosProtein [Mass/Vol]7.5 g/dLNormal6.4-8.2The [facility] Comment on above:Performed By: #### PHOS, URIC, MG, CMP, DBIL, LIPID #### [facility] [address] [place] [address] Dr. Karla LagosSodium [Moles/Vol]139 mmol/RAnslby373-108Cgs [facility] Comment on above:Performed By: #### PHOS, URIC, MG, CMP, DBIL, LIPID #### [facility] [address] [place] [address] Dr. Karla LagosUrea nitrogen [Mass/Vol]22.0 mg/dLCritically high7.0-18.0The [facility]ullComment on above:Performed By: #### PHOS, URIC, MG, CMP, DBIL, LIPID #### [facility] [address] [place] [address] Dr. Karla LagosUrea nitrogen/Creatinine [Mass ratio]17.2 mg/mgNormalThe [facility]ullComment on above:Performed By: #### PHOS, URIC, MG, CMP, DBIL, LIPID #### [facility] [address] [place] [address] Dr. Karla LagosURIC ACID SERUMon [id number] [Mass/Vol]4.8 mg/dLNormal 3.5-7.2The [facility] on above:Performed By: #### PHOS, URIC, MG, CMP, DBIL, LIPID #### [facility] [address] [place] [address] Dr. Karla JohnsonK VIRUS PCR QUANTon [id number] DNA QUANT PCR PLASMANegative NormalNegativeThe [facility] on above:Result Comment: No BK DNA detected. . The linear range of the assay is 22 - 100,000,000 IU/mL.Performed By: #### BKVIRUS #### [facility] [address] [place] [address] Dr. Karla LagosLog10 BKV DNA PlasmaNormalThe [facility]ullComment on above: Performed By: #### BKVIRUS #### [facility] [address] [place] [address] Dr. Karla LagosFK506 (TACROLIMUS) WHOLE BLOODon [id number] (FK506), Blood6.1 ng/mLNormal2.0-20.0The [facility] on above:Result Comment: Trough (immediately following transplant) 15.0 . Trough (steady state, 2 weeks or more after transplant): 3.0 - 8.0 . Performed by LC-MS/MS technology.Performed By: #### PHOS, URIC, MG, CMP, DBIL, LIPID #### [facility] [address] [place] [address] Dr. Karla LagosBILIRUBIN CONJUGATED (DIRECT)on [id number], CONJUGATED0.2 mg/dLNormal0.0-0.2The [facility] on above:Performed By: #### PHOS, URIC, MG, CMP, DBIL, LIPID #### [facility] [address] [place] [address] Dr. Karla LagosCBC AUTO DIFFon [id number] #0.0 103/ulNormal0.0-0.1The [facility] on above:Performed By: #### PHOS, URIC, MG, CMP, DBIL, LIPID #### [facility] [address] [address] [address] Karla LagosBasophils/100 WBC (Bld)0.4 %Normal0.2-2.0The [facility] Comment on above:Performed By: #### PHOS, URIC, MG, CMP, DBIL, LIPID #### [facility] [address] [place] [address] Dr. Karla Gruber #0.1 103/ulNormal0.0-0.7The [facility]Comment on above: Performed By: #### PHOS, URIC, MG, CMP, DBIL, LIPID #### [facility] [address] [place] [address] Dr. Karla Dioposinophils/100 WBC (Bld)1.6 %Normal0.9-7.0The [facility] Comment on above:Performed By: #### PHOS, URIC, MG, CMP, DBIL, LIPID #### [facility] [address] [place] [address] Dr. Karla Dioprythrocyte distribution width (RBC) [Ratio]14.2 %Rvmdtq05.0-15.0 The [facility]ullComment on above:Performed By: #### PHOS, URIC, MG, CMP, DBIL, LIPID #### [facility] [address] [place] [address] Dr. Karla LagosHematocrit (Bld) [Volume fraction]49.8 %Lemxsk47.0-54.0The [facility]ullComment on above:Performed By: #### PHOS, URIC, MG, CMP, DBIL, LIPID #### [facility] [address] [place] [address] Dr. Karla LagosHemoglobin (Bld) [Mass/Vol]16.6 g/lGQfcplk63.0-18.0The [facility] Tr[facility]ullComment on above:Performed By: #### PHOS, URIC, MG, CMP, DBIL, LIPID #### [facility] [address] [place] [address] Dr. Karla LagosIG #0.03 10e3/ulNormal0.00-0.03The [facility]ullComment on above:Performed By: #### PHOS, URIC, MG, CMP, DBIL, LIPID #### [facility] [address] [address] [address] Karla Youssef %0.4 %Normal0.0-0.5The [facility]ullComment on above: Performed By: #### PHOS, URIC, MG, CMP, DBIL, LIPID #### [facility] [address] [place] [address] Dr. Karla Gaming #1.1 103/ulCritically low1.2-3.8The [facility] Comment on above:Performed By: #### PHOS, URIC, MG, CMP, DBIL, LIPID #### [facility] [address] [place] [address] Dr. Karla Rodriguezhocytes/100 WBC (Bld)14.9 %Critically low20.5-60.0The [facility] Tr[facility]ullComment on above:Performed By: #### PHOS, URIC, MG, CMP, DBIL, LIPID #### [facility] [address] [place] [address] Dr. Karla SandovalUAL DIFF REQNONormalThe [facility]ullComment on above: Performed By: #### PHOS, URIC, MG, CMP, DBIL, LIPID #### [facility] [address] [place] [address] Dr. Karla Snider (RBC) [Entitic mass]30.4 opMzdoix77.9-34.0The [facility] Tr[facility]ullComment on above:Performed By: #### PHOS, URIC, MG, CMP, DBIL, LIPID #### [facility] [address] [place] [address] Dr. Karla Snider (RBC) [Mass/Vol]33.3 g/yLXjcpuz07.9-35.2The [facility]ullComment on above:Performed By: #### PHOS, URIC, MG, CMP, DBIL, LIPID #### [facility] [address] [place] [address] Dr. Yilan ChangMCV (RBC) [Entitic vol]91.2 dHAzysbx14.0-94.0The [facility] Tr[facility]ullComment on above:Performed By: #### PHOS, URIC, MG, CMP, DBIL, LIPID #### [facility] [address] [place] [address] Dr. Karla Dave #0.7 103/ulNormal0.3-0.8The [facility]ullComment on above:Performed By: #### PHOS, URIC, MG, CMP, DBIL, LIPID #### [facility] [address] [place] [address] Dr. Karla Gomezocytes/100 WBC (Bld)10.3 %Normal1.7-12.0The [facility] Comment on above:Performed By: #### PHOS, URIC, MG, CMP, DBIL, LIPID #### [facility] [address] [place] [address] Dr. Karla Tejeda #5.1 103/ulNormal1.4-6.5The [facility]ullComment on above:Performed By: #### PHOS, URIC, MG, CMP, DBIL, LIPID #### [facility] [address] [place] [address] Dr. Karla Adrianutrophils/100 WBC (Bld)72.4 %Uwncil34.0-75.0The [facility] on above:Performed By: #### PHOS, URIC, MG, CMP, DBIL, LIPID #### [facility] [address] [place] [address] Dr. Karla Wallacelet mean volume (Bld) [Entitic vol]10.4 fLNormal9.5-13.5The [facility]ment on above:Performed By: #### PHOS, URIC, MG, CMP, DBIL, LIPID #### [facility] [address] [place] [address] Dr. Karla StockT248 103/ojXhbulf680-739Lil [facility] Hospitalment on above: Performed By: #### PHOS, URIC, MG, CMP, DBIL, LIPID #### [facility] [address] [place] [address] Dr. Karla LagosRBC5.46 106/ulNormal4.70-6.10The [facility]ullComaleda e. [facility] on above:Performed By: #### PHOS, URIC, MG, CMP, DBIL, LIPID #### [facility] [address] [place] [address] Dr. Karla LagosWBC7.1 103/ulNormal4.0-11.0The [facility]ullComment on above: Performed By: #### PHOS, URIC, MG, CMP, DBIL, LIPID #### [facility] [address] [place] [address] Dr. Karla BuchananID PROFILEon [id number]-HDL RATIO NORMSFairfield Medical Center on above:Result Comment: 3.3 - 4.4 LOW RISK 4.4 - 7.1 AVERAGE RISK 7.1 - 11.0 MODERATE RISK >11.0 HIGH RISKPerformed By: #### PHOS, URIC, MG, CMP, DBIL, LIPID #### [facility] [address] [place] [address] Dr. Karla Bishopesterol [Mass/Vol]130 mg/dLNormal<=200The [facility] Comment on above:Performed By: #### PHOS, URIC, MG, CMP, DBIL, LIPID #### [facility] [address] [place] [address] Dr. Karla Bishopesterol in HDL [Mass/Vol]43 mg/pFTqwaql86-98AchMartins Ferry Hospitalment on above:Performed By: #### PHOS, URIC, MG, CMP, DBIL, LIPID #### [facility] [address] [place] [address] Dr. Karla Bishopesterol in LDL [Mass/Vol]61.8 mg/dLOhioHealth Pickerington [facility] on above:Performed By: #### PHOS, URIC, MG, CMP, DBIL, LIPID #### [facility] [address] [place] [address] Dr. Karla Mueller.total/Cholesterol in HDL [Mass ratio]3.0 {ratio} NormalBrown Memorial HospitalComment on above:Performed By: #### PHOS, URIC, MG, CMP, DBIL, LIPID #### [facility] [address] [place] [address] Dr. Karla Martinez NORMAL> or = 60 mg/dl - LOW CARDIOVASCULAR RISK <40 mg/dl - HIGH CARDIOVASCULAR RISKBluffton HospitalComment on above:Performed By: #### PHOS, URIC, MG, CMP, DBIL, LIPID #### [facility] [address] [place] [address] Dr. Karla LagosLDL CALC NORMALSEE BELOWBluffton HospitalComment on above:Result Comment: <100 mg/dl OPTIMAL 100 - 129 mg/dl NEAR OR ABOVE OPTIMAL 130 - 159 mg/dl BORDERLINE HIGH 160 - 189 mg/dl HIGH >190 mg/dl VERY HIGH Performed By: #### PHOS, URIC, MG, CMP, DBIL, LIPID #### [facility] [address] [place] [address] Dr. Karla LagosTriglyceride [Mass/Vol]126 mg/dLNormal<=150[facility] Comment on above:Performed By: #### PHOS, URIC, MG, CMP, DBIL, LIPID #### [facility] [address] [place] [address] Dr. Karla LagosVLDL CALC25.2 mg/dLNoMercy Health Allen HospitalComment on above: Performed By: #### PHOS, URIC, MG, CMP, DBIL, LIPID #### [facility] [address] [place] [address] Dr. Karla LagosMAGNESIUMon [phone] [Mass/Vol]1.7 mg/dLCritically low 1.8-2.4The [facility]ullComment on above:Performed By: #### PHOS, URIC, MG, CMP, DBIL, LIPID #### [facility] [address] [place] [address] Dr. Karla LagosPHOSPHORUSon [id number] [Mass/Vol]3.1 mg/dLNormal2.6-4.7 The [facility] Tr[facility]ullComment on above:Performed By: #### PHOS, URIC, MG, CMP, DBIL, LIPID #### [facility] [address] [place] [address] Dr. Karla Marinelli 14(COMP METB)on [id number] [Mass/Vol]4.0 g/dLNormal 3.4-5.0The [facility] Tr[facility]ullComment on above:Performed By: #### PHOS, URIC, MG, CMP, DBIL, LIPID #### [facility] [address] [place] [address] Dr. Karla LagosAlbumin/Globulin [Mass ratio]1.3 {ratio}NormalThe [facility] TrumbullComment on above:Performed By: #### PHOS, URIC, MG, CMP, DBIL, LIPID #### [facility] [address] [place] [address] Dr. Karla Maldonado [Catalytic activity/Vol]79 U/UTqpxgw79-434Zkd [facility] Hospitalment on above:Performed By: #### PHOS, URIC, MG, CMP, DBIL, LIPID #### [facility] [address] [place] [address] Dr. Karla Velasquez [Catalytic activity/Vol]40 U/ZUvtlbm80-24Btz [facility] Hospitalment on above:Performed By: #### PHOS, URIC, MG, CMP, DBIL, LIPID #### [facility] [address] [place] [address] Dr. Karla De La Vega gap [Moles/Vol]12.8 mmol/LNormalThe [facility] on above:Performed By: #### PHOS, URIC, MG, CMP, DBIL, LIPID #### [facility] [address] [place] [address] Dr. Karla Chow [Catalytic activity/Vol]24 U/FWtzpfg57-56Xmb [facility] Hospitalment on above:Performed By: #### PHOS, URIC, MG, CMP, DBIL, LIPID #### [facility] [address] [address] [address] Karla LagosBilirubin [Mass/Vol]0.7 mg/dLNormal0.2-1.0The [facility] Comment on above:Performed By: #### PHOS, URIC, MG, CMP, DBIL, LIPID #### [facility] [address] [place] [address] Dr. Karla LagosCalcium [Mass/Vol]9.3 mg/dLNormal8.5-10.1[facility] Comment on above:Performed By: #### PHOS, URIC, MG, CMP, DBIL, LIPID #### [facility] [address] [place] [address] Dr. Karla LagosChloride [Moles/Vol]105 mmol/REgfdla95-684YwxBrown [facility] Hospital Comment on above:Performed By: #### PHOS, URIC, MG, CMP, DBIL, LIPID #### [facility] [address] [place] [address] Dr. Karla LagosCO2 [Moles/Vol]28.4 mmol/MEdqtgs56.0-32.0[facility] Comment on above:Performed By: #### PHOS, URIC, MG, CMP, DBIL, LIPID #### [facility] [address] [place] [address] Dr. Karla LagosCreatinine [Mass/Vol]1.23 mg/dLNormal0.70-1.30The [facility]ullComment on above:Performed By: #### PHOS, URIC, MG, CMP, DBIL, LIPID #### [facility] [address] [place] [address] Dr. Acosta ChangEGFR-AF INDONESIAN>60Normal>=60The [facility] - TrumbullComment on above:Performed By: #### PHOS, URIC, MG, CMP, DBIL, LIPID #### [facility] [address] [place] [address] Dr. Karla DiopGFR-NON AF INDONESIAN=60Normal>=60The [facility] - TrumbullComment on above:Performed By: #### PHOS, URIC, MG, CMP, DBIL, LIPID #### [facility] [address] [address] [address] Karla LagosGlobulin (S) [Mass/Vol]3.1 g/dLNoMercy Health Allen HospitalComment on above:Performed By: #### PHOS, URIC, MG, CMP, DBIL, LIPID #### [facility] [address] [address] [address] Karla LagsoGlucose [Mass/Vol]114 mg/dLCritically fiwp12-929Vst [facility] TrumbullComment on above:Performed By: #### PHOS, URIC, MG, CMP, DBIL, LIPID #### [facility] [address] [place] [address] Dr. Karla LagosPotassium [Moles/Vol]4.2 mmol/LNormal3.5-5.1The [facility] Comment on above:Performed By: #### PHOS, URIC, MG, CMP, DBIL, LIPID #### [facility] [address] [place] [address] Dr. Karla LagosProtein [Mass/Vol]7.1 g/dLNormal6.4-8.2[facility] Comment on above:Performed By: #### PHOS, URIC, MG, CMP, DBIL, LIPID #### [facility] [address] [place] [address] Dr. Karla LagosSodium [Moles/Vol]142 mmol/ELhczvp300-067Jmz [facility] Comment on above:Performed By: #### PHOS, URIC, MG, CMP, DBIL, LIPID #### [facility] [address] [place] [address] Dr. Karla LagosUrea nitrogen [Mass/Vol]15.0 mg/dLNormal7.0-18.0The [facility] Hospitalment on above:Performed By: #### PHOS, URIC, MG, CMP, DBIL, LIPID #### [facility] [address] [place] [address] Dr. Karla LagosUrea nitrogen/Creatinine [Mass ratio]12.2 mg/mgNoMercy Health Allen HospitalComaleda e. [facility] on above:Performed By: #### PHOS, URIC, MG, CMP, DBIL, LIPID #### [facility] [address] [place] [address] Dr. Karla LagosURIC ACID SERUMon [id number] [Mass/Vol]5.1 mg/dLNormal 3.5-7.2The [facility] Hospitalment on above:Performed By: #### PHOS, URIC, MG, CMP, DBIL, LIPID #### [facility] [address] [place] [address] Dr. Karla LagosFK506 (TACROLIMUS) WHOLE BLOODon [id number] (FK506), Blood5.1 ng/mLNormal2.0-20.0The [facility] on above:Result Comment: Trough (immediately following transplant) 15.0 . Trough (steady state, 2 weeks or more after transplant): 3.0 - 8.0 . Performed by LC-MS/MS technology.Performed By: #### PHOS, URIC, MG, CMP, DBIL, LIPID #### [facility] [address] [place] [address] Dr. Karla LagosBK VIRUS PCR QUANTon [id number] DNA QUANT PCR PLASMANegative NormalNegativeThe [facility] on above:Result Comment: No BK DNA detected. . The linear range of the assay is 22 - 100,000,000 IU/mL.Performed By: #### PHOS, URIC, MG, CMP, DBIL, LIPID #### [facility] [address] [place] [address] Dr. Karla LagosLog10 BKV DNA PlasmaNormDiley Ridge Medical CenterComment on above: Performed By: #### PHOS, URIC, MG, CMP, DBIL, LIPID #### [facility] [address] [place] [address] Dr. Karla LagosBILIRUBIN CONJUGATED (DIRECT)on [id number], CONJUGATED0.1 mg/dLNormal0.0-0.2The [facility] Hospitalment on above:Performed By: #### PHOS, URIC, MG, CMP, DBIL, LIPID #### [facility] [address] [place] [address] Dr. Karla Bruce AUTO DIFFon [id number] #0.1 103/ulNormal0.0-0.1The [facility] - TrumbullComment on above:Performed By: #### PHOS, URIC, MG, CMP, DBIL, LIPID #### [facility] [address] [place] [address] Dr. Karla LagosBasophils/100 WBC (Bld)0.9 %Normal0.2-2.0The [facility] Comment on above:Performed By: #### PHOS, URIC, MG, CMP, DBIL, LIPID #### [facility] [address] [place] [address] Dr. Karla Gruber #0.1 103/ulNormal0.0-0.7The [facility] - TrumbullComment on above: Performed By: #### PHOS, URIC, MG, CMP, DBIL, LIPID #### [facility] [address] [place] [address] Dr. Karla Dioposinophils/100 WBC (Bld)1.6 %Normal0.9-7.0The [facility] Comment on above:Performed By: #### PHOS, URIC, MG, CMP, DBIL, LIPID #### [facility] [address] [place] [address] Dr. Karla Dioprythrocyte distribution width (RBC) [Ratio]13.4 %Cqgopq73.0-15.0 The [facility] - TrumbullComment on above:Performed By: #### PHOS, URIC, MG, CMP, DBIL, LIPID #### [facility] [address] [place] [address] Dr. Karla LagosHematocrit (Bld) [Volume fraction]46.3 %Gstdbq32.0-54.0The [facility] - TrumbullComment on above:Performed By: #### PHOS, URIC, MG, CMP, DBIL, LIPID #### [facility] [address] [place] [address] Dr. Karla LagosHemoglobin (Bld) [Mass/Vol]15.4 g/cJJaisll75.0-18.0The [facility] TrumbullComment on above:Performed By: #### PHOS, URIC, MG, CMP, DBIL, LIPID #### [facility] [address] [place] [address] Dr. Karla Youssef #0.10 10e3/ulCritically high0.00-0.03[facility] Comment on above:Performed By: #### PHOS, URIC, MG, CMP, DBIL, LIPID #### [facility] [address] [place] [address] Dr. Karla Youssef %1.3 %Critically high0.0-0.5ThUC [facility] HospitalComment on above:Performed By: #### PHOS, URIC, MG, CMP, DBIL, LIPID #### [facility] [address] [place] [address] Dr. Karla Gaming #1.0 103/ulCritically low1.2-3.8ThUC [facility] Comment on above:Performed By: #### PHOS, URIC, MG, CMP, DBIL, LIPID #### [facility] [address] [place] [address] Dr. Karla Rodriguezhocytes/100 WBC (Bld)12.8 %Critically low20.5-60.0[facility] HospitalComment on above:Performed By: #### PHOS, URIC, MG, CMP, DBIL, LIPID #### [facility] [address] [place] [address] Dr. Karla SandovalUAL DIFF REQNONormalThe [facility] - TrumbullComment on above: Performed By: #### PHOS, URIC, MG, CMP, DBIL, LIPID #### [facility] [address] [place] [address] Dr. Karla Hernandez (RBC) [Entitic mass]30.4 tsZrbomr29.9-34.0The [facility] - TrumbullComment on above:Performed By: #### PHOS, URIC, MG, CMP, DBIL, LIPID #### [facility] [address] [place] [address] Dr. Karla Snider (RBC) [Mass/Vol]33.3 g/jBGzwybb16.9-35.2The [facility] - TrumbullComment on above:Performed By: #### PHOS, URIC, MG, CMP, DBIL, LIPID #### [facility] [address] [place] [address] Dr. Karla Snider (RBC) [Entitic vol]91.3 rWFycreh10.0-94.0The [facility] TrumbullComment on above:Performed By: #### PHOS, URIC, MG, CMP, DBIL, LIPID #### [facility] [address] [place] [address] Dr. Karla Dave #0.6 103/ulNormal0.3-0.8The [facility] TrumbullComment on above:Performed By: #### PHOS, URIC, MG, CMP, DBIL, LIPID #### [facility] [address] [place] [address] Dr. Karla Gomezocytes/100 WBC (Bld)8.6 %Normal1.7-12.0The [facility] Comment on above:Performed By: #### PHOS, URIC, MG, CMP, DBIL, LIPID #### [facility] [address] [place] [address] Dr. Karla Tejeda #5.5 103/ulNormal1.4-6.5The [facility] Hospitalment on above:Performed By: #### PHOS, URIC, MG, CMP, DBIL, LIPID #### [facility] [address] [place] [address] Dr. Karla Adrianutrophils/100 WBC (Bld)74.8 %Pxfajb63.0-75.0The [facility] Hospitalment on above:Performed By: #### PHOS, URIC, MG, CMP, DBIL, LIPID #### [facility] [address] [place] [address] Dr. Karla Ramirez mean volume (Bld) [Entitic vol]9.6 fLNormal9.5-13.5ThAdams County Regional [facility] on above:Performed By: #### PHOS, URIC, MG, CMP, DBIL, LIPID #### [facility] [address] [place] [address] Dr. Karla LagosPLT312 103/znSliijr510-289Dym [facility] TrumbullComment on above: Performed By: #### PHOS, URIC, MG, CMP, DBIL, LIPID #### [facility] [address] [place] [address] Dr. Karla LagosRBC5.07 106/ulNormal4.70-6.10The [facility] on above:Performed By: #### PHOS, URIC, MG, CMP, DBIL, LIPID #### [facility] [address] [place] [address] Dr. Karla LagosWBC7.4 103/ulNormal4.0-11.0The [facility] TrumbullComment on above: Performed By: #### PHOS, URIC, MG, CMP, DBIL, LIPID #### [facility] [address] [place] [address] Dr. Karla BuchananID PROFILEon [id number]-HDL RATIO [facility] on above:Result Comment: 3.3 - 4.4 LOW RISK 4.4 - 7.1 AVERAGE RISK 7.1 - 11.0 MODERATE RISK >11.0 HIGH RISKPerformed By: #### PHOS, URIC, MG, CMP, DBIL, LIPID #### [facility] [address] [place] [address] Dr. Karla LagosCholesterol [Mass/Vol]108 mg/dLNormal<=200[facility] Comment on above:Performed By: #### PHOS, URIC, MG, CMP, DBIL, LIPID #### [facility] [address] [place] [address] Dr. Karla LagosCholesterol in HDL [Mass/Vol]36 mg/dLCritically ofj95-00QypBrown Memorial HospitalComment on above:Performed By: #### PHOS, URIC, MG, CMP, DBIL, LIPID #### [facility] [address] [address] [address] Karla LagosCholesterol in LDL [Mass/Vol]58.4 mg/dLBluffton HospitalComment on above:Performed By: #### PHOS, URIC, MG, CMP, DBIL, LIPID #### [facility] [address] [address] [address] Karla Mueller.total/Cholesterol in HDL [Mass ratio]3.0 {ratio} NormalBrown Memorial HospitalComment on above:Performed By: #### PHOS, URIC, MG, CMP, DBIL, LIPID #### [facility] [address] [place] [address] Dr. Karla Martinez NORMAL> or = 60 mg/dl - LOW CARDIOVASCULAR RISK <40 mg/dl - HIGH CARDIOVASCULAR RISKNoMercy Health Allen HospitalComment on above:Performed By: #### PHOS, URIC, MG, CMP, DBIL, LIPID #### [facility] [address] [place] [address] Dr. Karla Matute CALC NORMALSEE BELOWBluffton HospitalComment on above:Result Comment: <100 mg/dl OPTIMAL 100 - 129 mg/dl NEAR OR ABOVE OPTIMAL 130 - 159 mg/dl BORDERLINE HIGH 160 - 189 mg/dl HIGH >190 mg/dl VERY HIGH Performed By: #### PHOS, URIC, MG, CMP, DBIL, LIPID #### [facility] [address] [place] [address] Dr. Karla LagosTriglyceride [Mass/Vol]68 mg/dLNormal<=150[facility] Comment on above:Performed By: #### PHOS, URIC, MG, CMP, DBIL, LIPID #### [facility] [address] [place] [address] Dr. Karla ArguelloLDL CALC13.6 mg/dLBluffton HospitalComment on above: Performed By: #### PHOS, URIC, MG, CMP, DBIL, LIPID #### [facility] [address] [place] [address] Dr. Karla LagosMAGNESIUMon [id number] [Mass/Vol]1.7 mg/dLCritically low 1.8-2.4The [facility] Hospitalment on above:Performed By: #### PHOS, URIC, MG, CMP, DBIL, LIPID #### [facility] [address] [place] [address] Dr. Karla LagosPHOSPHORUSon 98-19-7625Ayssfyqje [Mass/Vol]3.7 mg/dLNormal2.6-4.7 [facility] on above:Performed By: #### PHOS, URIC, MG, CMP, DBIL, LIPID #### [facility] [address] [place] [address] Dr. Karla Marinelli 14(COMP METB)on [id number] [Mass/Vol]3.4 g/dLNormal 3.4-5.0The [facility] Hospitalment on above:Performed By: #### PHOS, URIC, MG, CMP, DBIL, LIPID #### [facility] [address] [place] [address] Dr. Karla LagosAlbumin/Globulin [Mass ratio]1.0 {ratio}NormalThe [facility] on above:Performed By: #### PHOS, URIC, MG, CMP, DBIL, LIPID #### [facility] [address] [place] [address] Dr. Karla Maldonado [Catalytic activity/Vol]92 U/XWfxccz33-857Dhs [facility] on above:Performed By: #### PHOS, URIC, MG, CMP, DBIL, LIPID #### [facility] [address] [place] [address] Dr. Karla Velasquez [Catalytic activity/Vol]33 U/TZhdpsy83-15Axb [facility] on above:Performed By: #### PHOS, URIC, MG, CMP, DBIL, LIPID #### [facility] [address] [place] [address] Dr. Karla De La Vega gap [Moles/Vol]12.7 mmol/LNormalBrown Memorial Hospital Comment on above:Performed By: #### PHOS, URIC, MG, CMP, DBIL, LIPID #### [facility] [address] [place] [address] Dr. Karla LagosAST [Catalytic activity/Vol]21 U/EEjpdae90-19YnkBrown Memorial HospitalComment on above:Performed By: #### PHOS, URIC, MG, CMP, DBIL, LIPID #### [facility] [address] [place] [address] Dr. Karla LagosBilirubin [Mass/Vol]0.4 mg/dLNormal0.2-1.0[facility] Comment on above:Performed By: #### PHOS, URIC, MG, CMP, DBIL, LIPID #### [facility] [address] [place] [address] Dr. Karla LagosCalcium [Mass/Vol]9.0 mg/dLNormal8.5-10.1The [facility] Comment on above:Performed By: #### PHOS, URIC, MG, CMP, DBIL, LIPID #### [facility] [address] [place] [address] Dr. Karla LagosChloride [Moles/Vol]104 mmol/KDwfgdc93-272PpzBrown Memorial Hospital Comment on above:Performed By: #### PHOS, URIC, MG, CMP, DBIL, LIPID #### [facility] [address] [place] [address] Dr. Karla LagosCO2 [Moles/Vol]28.7 mmol/ZAcsfix49.0-32.0The [facility] Comment on above:Performed By: #### PHOS, URIC, MG, CMP, DBIL, LIPID #### [facility] [address] [place] [address] Dr. Karla LagosCreatinine [Mass/Vol]1.15 mg/dLNormal0.70-1.30[facility] HospitalComment on above:Performed By: #### PHOS, URIC, MG, CMP, DBIL, LIPID #### [facility] [address] [place] [address] Dr. Karla DiopGFR-AF INDONESIAN>60Normal>=60[facility] HospitalComment on above:Performed By: #### PHOS, URIC, MG, CMP, DBIL, LIPID #### [facility] [address] [place] [address] Dr. Karla DiopGFR-NON AF INDONESIAN>60Normal>=60The [facility] TrumbullComment on above:Performed By: #### PHOS, URIC, MG, CMP, DBIL, LIPID #### [facility] [address] [place] [address] Dr. Karla LagosGlobulin (S) [Mass/Vol]3.3 g/dLNormalThe [facility] Tr[facility]ullComment on above:Performed By: #### PHOS, URIC, MG, CMP, DBIL, LIPID #### [facility] [address] [place] [address] Dr. Karla LagosGlucose [Mass/Vol]112 mg/dLCritically [id number] Memorial HospitalComment on above:Performed By: #### PHOS, URIC, MG, CMP, DBIL, LIPID #### [facility] [address] [place] [address] Dr. Karla LagosPotassium [Moles/Vol]4.4 mmol/LNormal3.5-5.1[facility] Comment on above:Performed By: #### PHOS, URIC, MG, CMP, DBIL, LIPID #### [facility] [address] [place] [address] Dr. Karla LagosProtein [Mass/Vol]6.7 g/dLNormal6.4-8.2[facility] Comment on above:Performed By: #### PHOS, URIC, MG, CMP, DBIL, LIPID #### [facility] [address] [place] [address] Dr. Karla LagosSodium [Moles/Vol]141 mmol/HDuvlnr792-432VmbBrown Memorial Hospital Comment on above:Performed By: #### PHOS, URIC, MG, CMP, DBIL, LIPID #### [facility] [address] [place], [place] [address] Dr. Karla LagosUrea nitrogen [Mass/Vol]17.0 mg/dLNormal7.0-18.0The [facility] TrumbullComment on above:Performed By: #### PHOS, URIC, MG, CMP, DBIL, LIPID #### [facility] [address] [place] [address] Dr. Karla LagosUrea nitrogen/Creatinine [Mass ratio]14.8 mg/mgNormalThe [facility] TrumbullComment on above:Performed By: #### PHOS, URIC, MG, CMP, DBIL, LIPID #### [facility] [address] [place] [address] Dr. Karla LagosURIC ACID SERUMon [id number] [Mass/Vol]5.3 mg/dLNormal 3.5-7.2The [facility] TrumbullComment on above:Performed By: #### PHOS, URIC, MG, CMP, DBIL, LIPID #### [facility] [address] [place] [address] Dr. Karla LagosNM STRESS/REST MULTIon [id number] STRESS/REST MULTIPatient: VISHAL DUKE Exam Date: 05/30/2022 : 1960 Gender:M Ordering : DR FEDERICO CHESTER M.D. Admission #: [id number] Family : Order #: [id number] CLICK HERE TO VIEW EXAM RADIOLOGY REPORT [...] Basal inferoseptal. Basal inferior. Mid-anteroseptal. Mid-inferoseptal. Mid-inferior. [place]. SIZE: Large (5 or more segments). SEVERITY: [...] by: Aime Villasenor MD on 06/01/2022 at 06:10[facility] FK506 (TACROLIMUS) WHOLE BLOODon [id number] (FK506), Blood5.4 ng/mL Normal2.0-20.0The [facility] Tr[facility]ullComment on above:Result Comment: Trough (immediately following transplant) 15.0 . Trough (steady state, 2 weeks or more after transplant): 3.0 - 8.0 . Performed by LC-MS/MS technology.Performed By: #### PHOS, URIC, MG, CMP, DBIL, LIPID #### [facility] [address] [place] [address] Dr. Karla JohnsonK VIRUS PCR QUANTon [id number] DNA QUANT PCR PLASMANegative NormalNegativeBrown Memorial HospitalComment on above:Result Comment: No BK DNA detected. . The linear range of the assay is 22 - 100,000,000 IU/mL.Performed By: #### PHOS, URIC, MG, CMP, DBIL, LIPID #### [facility] [address] [place] [address] Dr. Karla LagosLog10 BKV DNA PlasmaNoMercy Health Allen HospitalComment on above: Performed By: #### PHOS, URIC, MG, CMP, DBIL, LIPID #### [facility] [address] [place] [address] Dr. Karla LagosBILIRUBIN CONJUGATED (DIRECT)on [id number], CONJUGATED0.2 mg/dLNormal0.0-0.2The [facility] TrumbullComment on above:Performed By: #### PHOS, URIC, MG, CMP, DBIL, LIPID #### [facility] [address] [place] [address] Dr. Karla Bruce AUTO DIFFon [id number] #0.1 103/ulNormal0.0-0.1The [facility] - TrumbullComment on above:Performed By: #### PHOS, URIC, MG, CMP, DBIL, LIPID #### [facility] [address] [place] [address] Dr. Karla LagosBasophils/100 WBC (Bld)0.7 %Normal0.2-2.0The [facility] Comment on above:Performed By: #### PHOS, URIC, MG, CMP, DBIL, LIPID #### [facility] [address] [place] [address] Dr. Karla Gruber #0.1 103/ulNormal0.0-0.7The [facility] - TrumbullComment on above: Performed By: #### PHOS, URIC, MG, CMP, DBIL, LIPID #### [facility] [address] [place] [address] Dr. Karla Dioposinophils/100 WBC (Bld)1.6 %Normal0.9-7.0The [facility] Comment on above:Performed By: #### PHOS, URIC, MG, CMP, DBIL, LIPID #### [facility] [address] [place] [address] Dr. Karla Dioprythrocyte distribution width (RBC) [Ratio]13.7 %Fsqqhi88.0-15.0 The [facility] - TrumbullComment on above:Performed By: #### PHOS, URIC, MG, CMP, DBIL, LIPID #### [facility] [address] [place] [address] Dr. Karla LagosHematocrit (Bld) [Volume fraction]49.1 %Ntzgyw29.0-54.0[facility] HospitalComment on above:Performed By: #### PHOS, URIC, MG, CMP, DBIL, LIPID #### [facility] [address] [place] [address] Dr. Karla LagosHemoglobin (Bld) [Mass/Vol]16.5 g/iXJpivso79.0-18.0The [facility] TrumbullComment on above:Performed By: #### PHOS, URIC, MG, CMP, DBIL, LIPID #### [facility] [address] [place] [address] Dr. Karla Youssef #0.05 10e3/ulCritically high0.00-0.03[facility] Comment on above:Performed By: #### PHOS, URIC, MG, CMP, DBIL, LIPID #### [facility] [address] [place] [address] Dr. Karla Youssef %0.7 %Critically high0.0-0.5The [facility] TrumbullComment on above:Performed By: #### PHOS, URIC, MG, CMP, DBIL, LIPID #### [facility] [address] [place] [address] Dr. Karla Gaming #1.0 103/ulCritically low1.2-3.8The [facility] Comment on above:Performed By: #### PHOS, URIC, MG, CMP, DBIL, LIPID #### [facility] [address] [place] [address] Dr. Karla Rodriguezhocytes/100 WBC (Bld)13.7 %Critically low20.5-60.0The [facility] TrumbullComment on above:Performed By: #### PHOS, URIC, MG, CMP, DBIL, LIPID #### [facility] [address] [place] [address] Dr. Karla SandovalUAL DIFF REQNONormalThe [facility] - TrumbullComment on above: Performed By: #### PHOS, URIC, MG, CMP, DBIL, LIPID #### [facility] [address] [place] [address] Dr. Karla Snider (RBC) [Entitic mass]30.9 taOeyrim54.9-34.0The [facility] - TrumbullComment on above:Performed By: #### PHOS, URIC, MG, CMP, DBIL, LIPID #### [facility] [address] [place] [address] Dr. Karla Snider (RBC) [Mass/Vol]33.6 g/oLIbbzsd06.9-35.2The [facility] - TrumbullComment on above:Performed By: #### PHOS, URIC, MG, CMP, DBIL, LIPID #### [facility] [address] [place] [address] Dr. Karla Snider (RBC) [Entitic vol]91.9 mNOzqupk72.0-94.0The [facility] - TrumbullComment on above:Performed By: #### PHOS, URIC, MG, CMP, DBIL, LIPID #### [facility] [address] [place] [address] Dr. Karla Dave #0.7 103/ulNormal0.3-0.8The [facility] - TrumbullComment on above:Performed By: #### PHOS, URIC, MG, CMP, DBIL, LIPID #### [facility] [address] [place] [address] Dr. Karla Gomezocytes/100 WBC (Bld)9.7 %Normal1.7-12.0The [facility] Comment on above:Performed By: #### PHOS, URIC, MG, CMP, DBIL, LIPID #### [facility] [address] [place] [address] Dr. Karla Tejeda #5.2 103/ulNormal1.4-6.5The [facility] TrumbullComment on above:Performed By: #### PHOS, URIC, MG, CMP, DBIL, LIPID #### [facility] [address] [place] [address] Dr. Karla Adrianutrophils/100 WBC (Bld)73.6 %Yhlptc29.0-75.0The [facility] TrumbullComment on above:Performed By: #### PHOS, URIC, MG, CMP, DBIL, LIPID #### [facility] [address] [place] [address] Dr. Karla Ramirez mean volume (Bld) [Entitic vol]10.2 fLNormal9.5-13.5The [facility] Hospitalment on above:Performed By: #### PHOS, URIC, MG, CMP, DBIL, LIPID #### [facility] [address] [place] [address] Dr. Karla LagosPLT218 103/kgSkeape163-731Nmx [facility] TrumbullComment on above: Performed By: #### PHOS, URIC, MG, CMP, DBIL, LIPID #### [facility] [address] [place] [address] Dr. Karla LagosRBC5.34 106/ulNormal4.70-6.10The [facility]ullComaleda e. [facility] on above:Performed By: #### PHOS, URIC, MG, CMP, DBIL, LIPID #### [facility] [address] [place] [address] Dr. Karla LagosWBC7.1 103/ulNormal4.0-11.0The [facility] TrumbullComment on above: Performed By: #### PHOS, URIC, MG, CMP, DBIL, LIPID #### [facility] [address] [place] [address] Dr. Karla LagosLIPID PROFILEon [id number]-HDL RATIO Holzer HospitalComment on above:Result Comment: 3.3 - 4.4 LOW RISK 4.4 - 7.1 AVERAGE RISK 7.1 - 11.0 MODERATE RISK >11.0 HIGH RISKPerformed By: #### MG, CMP, URIC, DBIL, LIPID, PHOS #### [facility] [address] [place] [address] Dr. Karla LagosCholesterol [Mass/Vol]121 mg/dLNormal<=200The [facility] Comment on above:Performed By: #### MG, CMP, URIC, DBIL, LIPID, PHOS #### [facility] [address] [address] [address] Karla LagosCholesterol in HDL [Mass/Vol]44 mg/wHYvgyou96-87CehProMedica Memorial Hospital on above:Performed By: #### MG, CMP, URIC, DBIL, LIPID, PHOS #### [facility] [address] [place] [address] Dr. Karla Bishopesterol in LDL [Mass/Vol]40.0 mg/dLOhioHealth Pickerington [facility] on above:Performed By: #### MG, CMP, URIC, DBIL, LIPID, PHOS #### [facility] [address] [place] [address] Dr. Karla Mueller.total/Cholesterol in HDL [Mass ratio]2.8 {ratio} NormalProMedica Memorial Hospital on above:Performed By: #### MG, CMP, URIC, DBIL, LIPID, PHOS #### [facility] [address] [place] [address] Dr. Karla LagosHDNaga NORMAL> or = 60 mg/dl - LOW CARDIOVASCULAR RISK <40 mg/dl - HIGH CARDIOVASCULAR RISKOhioHealth Pickerington [facility] Hospital on above:Performed By: #### MG, CMP, URIC, DBIL, LIPID, PHOS #### [facility] [address] [place] [address] Dr. Karla LagosLDL CALC NORMALSEE BELOWOhioHealth Pickerington Methodist Hospital on above:Result Comment: <100 mg/dl OPTIMAL 100 - 129 mg/dl NEAR OR ABOVE OPTIMAL 130 - 159 mg/dl BORDERLINE HIGH 160 - 189 mg/dl HIGH >190 mg/dl VERY HIGH Performed By: #### MG, CMP, URIC, DBIL, LIPID, PHOS #### [facility] [address] [place] [address] Dr. Karla LagosTriglyceride [Mass/Vol]185 mg/dLCritically high<=150[facility] on above:Performed By: #### MG, CMP, URIC, DBIL, LIPID, PHOS #### [facility] [address] [address] [address] Karla LagosVLDL CALC37.0 mg/dLNormalThe [facility] TrumbullComment on above: Performed By: #### MG, CMP, URIC, DBIL, LIPID, PHOS #### [facility] [address] [place] [address] Dr. Karla LagosMAGNESIUMon [id number] [Mass/Vol]1.6 mg/dLCritically low 1.8-2.4The [facility] TrumbullComment on above:Performed By: #### PHOS, URIC, MG, CMP, DBIL, LIPID #### [facility] [address] [place] [address] Dr. Karla LagosPHOSPHORUSon [id number] [Mass/Vol]3.6 mg/dLNormal2.6-4.7 The [facility] TrumbullComment on above:Performed By: #### PHOS, URIC, MG, CMP, DBIL, LIPID #### [facility] [address] [place] [address] Dr. Karla LagosPROF 14(COMP METB)on [id number] [Mass/Vol]3.9 g/dLNormal 3.4-5.0The [facility] Hospitalment on above:Performed By: #### MG, CMP, URIC, DBIL, LIPID, PHOS #### [facility] [address] [place] [address] Dr. Karla LagosAlbumin/Globulin [Mass ratio]1.3 {ratio}NormalThe [facility] on above:Performed By: #### MG, CMP, URIC, DBIL, LIPID, PHOS #### [facility] [address] [place] [address] Dr. Karla Maldonado [Catalytic activity/Vol]80 U/JSwsgkh42-074Yqx [facility] Hospitalment on above:Performed By: #### MG, CMP, URIC, DBIL, LIPID, PHOS #### [facility] [address] [place] [address] Dr. Karla Velasquez [Catalytic activity/Vol]41 U/YKidfvg71-94PfeBrown Memorial HospitalComment on above:Performed By: #### MG, CMP, URIC, DBIL, LIPID, PHOS #### [facility] [address] [place] [address] Dr. Karla De La Vega gap [Moles/Vol]11.9 mmol/LNormalBrown Memorial Hospital Comment on above:Performed By: #### MG, CMP, URIC, DBIL, LIPID, PHOS #### [facility] [address] [place] [address] Dr. Karla Chow [Catalytic activity/Vol]24 U/REqbsru93-76Xtx [facility] TrumbullComment on above:Performed By: #### MG, CMP, URIC, DBIL, LIPID, PHOS #### [facility] [address] [place] [address] Dr. Karla LagosBilirubin [Mass/Vol]0.7 mg/dLNormal0.2-1.0[facility] Comment on above:Performed By: #### MG, CMP, URIC, DBIL, LIPID, PHOS #### [facility] [address] [place] [address] Dr. Karla LagosCalcium [Mass/Vol]9.2 mg/dLNormal8.5-10.1[facility] Comment on above:Performed By: #### MG, CMP, URIC, DBIL, LIPID, PHOS #### [facility] [address] [place] [address] Dr. Karla LagosChloride [Moles/Vol]103 mmol/NQpmaiu47-173JwtBrown Memorial Hospital Comment on above:Performed By: #### MG, CMP, URIC, DBIL, LIPID, PHOS #### [facility] [address] [place] [address] Dr. Karla LagosCO2 [Moles/Vol]28.1 mmol/JObyoym95.0-32.0[facility] Comment on above:Performed By: #### MG, CMP, URIC, DBIL, LIPID, PHOS #### [facility] [address] [address] [address] Karla LagosCreatinine [Mass/Vol]1.19 mg/dLNormal0.70-1.30The [facility] Hospitalment on above:Performed By: #### MG, CMP, URIC, DBIL, LIPID, PHOS #### [facility] [address] [place] [address] Dr. Acosta ChangEGFR-AF INDONESIAN>60Normal>=60The [facility] TrumbullComment on above:Performed By: #### MG, CMP, URIC, DBIL, LIPID, PHOS #### [facility] [address] [place] [address] Dr. Karla DiopGFR-NON AF INDONESIAN>60Normal>=60The [facility] TrumbullComment on above:Performed By: #### MG, CMP, URIC, DBIL, LIPID, PHOS #### [facility] [address] [place] [address] Dr. Karla LagosGlobulin (S) [Mass/Vol]2.9 g/dLNormalThe [facility] TrumbullComment on above:Performed By: #### MG, CMP, URIC, DBIL, LIPID, PHOS #### [facility] [address] [place] [address] Dr. Karla LagosGlucose [Mass/Vol]119 mg/dLCritically icsu75-735Wuw [facility] Hospitalment on above:Performed By: #### MG, CMP, URIC, DBIL, LIPID, PHOS #### [facility] [address] [place] [address] Dr. Karla LagosPotassium [Moles/Vol]4.0 mmol/LNormal3.5-5.1The [facility] Comment on above:Performed By: #### MG, CMP, URIC, DBIL, LIPID, PHOS #### [facility] [address] [place] [address] Dr. Karla LagosProtein [Mass/Vol]6.8 g/dLNormal6.4-8.2The [facility] Comment on above:Performed By: #### MG, CMP, URIC, DBIL, LIPID, PHOS #### [facility] [address] [address] [address] Karla LagosSodium [Moles/Vol]139 mmol/IBanwfm721-541Llw [facility] Comment on above:Performed By: #### MG, CMP, URIC, DBIL, LIPID, PHOS #### [facility] [address] [place] [address] Dr. Karla LagosUrea nitrogen [Mass/Vol]20.0 mg/dLCritically high7.0-18.0The [facility] TrumbullComment on above:Performed By: #### MG, CMP, URIC, DBIL, LIPID, PHOS #### [facility] [address] [place] [address] Dr. Karla Ellis nitrogen/Creatinine [Mass ratio]16.8 mg/mgNormalThe [facility] TrumbullComment on above:Performed By: #### MG, CMP, URIC, DBIL, LIPID, PHOS #### [facility] [address] [place] [address] Dr. Karla LagosURIC ACID SERUMon [id number] [Mass/Vol]5.5 mg/dLNormal 3.5-7.2The [facility] TrumbullComment on above:Performed By: #### MG, CMP, URIC, DBIL, LIPID, PHOS #### [facility] [address] [place] [address] Dr. Karla AlejandraK506 (TACROLIMUS) WHOLE BLOODon [id number] (FK506), Blood6.1 ng/mLNormal2.0-20.0The [facility] TrumbullComment on above:Result Comment: Trough (immediately following transplant) 15.0 . Trough (steady state, 2 weeks or more after transplant): 3.0 - 8.0 . Performed by LC-MS/MS technology.Performed By: #### PHOS, URIC, MG, CMP, DBIL, LIPID #### [facility] [address] [place] [address] Dr. Karla AlejandraK506 (TACROLIMUS) WHOLE BLOODon [id number] (FK506), Blood8.8 ng/mLNormal2.0-20.0The [facility] TrumbullComment on above:Result Comment: Trough (immediately following transplant) 15.0 . Trough (steady state, 2 weeks or more after transplant): 3.0 - 8.0 . Performed by LC-MS/MS technology.Performed By: #### PHOS, URIC, MG, CMP, DBIL, LIPID #### [facility] [address] [place] [address] Dr. Karla NguyenIRUBIN CONJUGATED (DIRECT)on [id number], CONJUGATED0.2 mg/dLNormal0.0-0.2The [facility] TrumbullComment on above:Performed By: #### PHOS, URIC, MG, CMP, DBIL, LIPID #### [facility] [address] [place] [address] Dr. Karla Bruce AUTO DIFFon [id number] #0.1 103/ulNormal0.0-0.1The [facility] TrumbullComment on above:Performed By: #### PHOS, URIC, MG, CMP, DBIL, LIPID #### [facility] [address] [place] [address] Dr. Karla Teransophils/100 WBC (Bld)0.7 %Normal0.2-2.0The [facility] Comment on above:Performed By: #### PHOS, URIC, MG, CMP, DBIL, LIPID #### [facility] [address] [place] [address] Dr. Karla Gruber #0.1 103/ulNormal0.0-0.7The [facility] TrumbullComment on above: Performed By: #### PHOS, URIC, MG, CMP, DBIL, LIPID #### [facility] [address] [place] [address] Dr. Karla Dioposinophils/100 WBC (Bld)1.4 %Normal0.9-7.0The [facility] Comment on above:Performed By: #### PHOS, URIC, MG, CMP, DBIL, LIPID #### [facility] [address] [place] [address] Dr. Karla Dioprythrocyte distribution width (RBC) [Ratio]13.6 %Ziuzih19.0-15.0 The [facility] TrumbullComment on above:Performed By: #### PHOS, URIC, MG, CMP, DBIL, LIPID #### [facility] [address] [place] [address] Dr. Karla LagosHematocrit (Bld) [Volume fraction]51.5 %Ksvpin89.0-54.0The [facility] TrumbullComment on above:Performed By: #### PHOS, URIC, MG, CMP, DBIL, LIPID #### [facility] [address] [place] [address] Dr. Karla LagosHemoglobin (Bld) [Mass/Vol]16.8 g/fYOutarm56.0-18.0The [facility] TrumbullComment on above:Performed By: #### PHOS, URIC, MG, CMP, DBIL, LIPID #### [facility] [address] [place] [address] Dr. Karla Youssef #0.06 10e3/ulCritically high0.00-0.03[facility] Comment on above:Performed By: #### PHOS, URIC, MG, CMP, DBIL, LIPID #### [facility] [address] [place] [address] Dr. Karla Youssef %0.8 %Critically high0.0-0.5The [facility] TrumbullComment on above:Performed By: #### PHOS, URIC, MG, CMP, DBIL, LIPID #### [facility] [address] [place] [address] Dr. Karla Gaming #1.1 103/ulCritically low1.2-3.8The [facility] Comment on above:Performed By: #### PHOS, URIC, MG, CMP, DBIL, LIPID #### [facility] [address] [place] [address] Dr. Karla Raymphocytes/100 WBC (Bld)14.8 %Critically low20.5-60.0The [facility] TrumbullComment on above:Performed By: #### PHOS, URIC, MG, CMP, DBIL, LIPID #### [facility] [address] [place] [address] Dr. Karla Lehman DIFF REQNONormalThe [facility] TrumbullComment on above: Performed By: #### PHOS, URIC, MG, CMP, DBIL, LIPID #### [facility] [address] [place] [address] Dr. Karla Snider (RBC) [Entitic mass]30.2 klEdtmwm91.9-34.0The [facility] TrumbullComment on above:Performed By: #### PHOS, URIC, MG, CMP, DBIL, LIPID #### [facility] [address] [place] [address] Dr. Karla Snider (RBC) [Mass/Vol]32.6 g/fWWyftct78.9-35.2The [facility] TrumbullComment on above:Performed By: #### PHOS, URIC, MG, CMP, DBIL, LIPID #### [facility] [address] [place] [address] Dr. Karla Snider (RBC) [Entitic vol]92.6 fFJddjfq43.0-94.0The [facility] TrumbullComment on above:Performed By: #### PHOS, URIC, MG, CMP, DBIL, LIPID #### [facility] [address] [place] [address] Dr. Karla Dave #0.7 103/ulNormal0.3-0.8The [facility] TrumbullComment on above:Performed By: #### PHOS, URIC, MG, CMP, DBIL, LIPID #### [facility] [address] [place] [address] Dr. Karla Gomezocytes/100 WBC (Bld)10.0 %Normal1.7-12.0The [facility] Comment on above:Performed By: #### PHOS, URIC, MG, CMP, DBIL, LIPID #### [facility] [address] [place] [address] Dr. Karla Tejeda #5.2 103/ulNormal1.4-6.5The [facility] on above:Performed By: #### PHOS, URIC, MG, CMP, DBIL, LIPID #### [facility] [address] [place] [address] Dr. Karla Arellanoophils/100 WBC (Bld)72.3 %Cnluqo13.0-75.0The [facility] on above:Performed By: #### PHOS, URIC, MG, CMP, DBIL, LIPID #### [facility] [address] [place] [address] Dr. Karla LagosPlatelet mean volume (Bld) [Entitic vol]10.4 fLNormal9.5-13.5The [facility] on above:Performed By: #### PHOS, URIC, MG, CMP, DBIL, LIPID #### [facility] [address] [place] [address] Dr. Karla LagosPLT245 103/aqHamjwl015-337Blr [facility] on above: Performed By: #### PHOS, URIC, MG, CMP, DBIL, LIPID #### [facility] [address] [place] [address] Dr. Karla LagosRBC5.56 106/ulNormal4.70-6.10The [facility] on above:Performed By: #### PHOS, URIC, MG, CMP, DBIL, LIPID #### [facility] [address] [place] [address] Dr. Karla LagosWBC7.2 103/ulNormal4.0-11.0The [facility] on above: Performed By: #### PHOS, URIC, MG, CMP, DBIL, LIPID #### [facility] [address] [place] [address] Dr. Karla LagosLIPID PROFILEon [id number]-HDL RATIO [facility]MSFair[facility] on above:Result Comment: 3.3 - 4.4 LOW RISK 4.4 - 7.1 AVERAGE RISK 7.1 - 11.0 MODERATE RISK >11.0 HIGH RISKPerformed By: #### PHOS, URIC, MG, CMP, DBIL, LIPID #### [facility] [address] [address] [address] Karla Bishopesterol [Mass/Vol]124 mg/dLNormal<=200[facility] Comment on above:Performed By: #### PHOS, URIC, MG, CMP, DBIL, LIPID #### [facility] [address] [address] [address] Karla LagosCholesterol in HDL [Mass/Vol]47 mg/kVZkqpyy38-05Kop [facility] TrumbullComment on above:Performed By: #### PHOS, URIC, MG, CMP, DBIL, LIPID #### [facility] [address] [address] [address] Karla Bsihopesterjayy in LDL [Mass/Vol]47.4 mg/dLNoMercy Health Allen HospitalComment on above:Performed By: #### PHOS, URIC, MG, CMP, DBIL, LIPID #### [facility] [address] [place] [address] Dr. Karla Mueller.total/Cholesterol in HDL [Mass ratio]2.6 {ratio} NormalThe [facility] TrumbullComment on above:Performed By: #### PHOS, URIC, MG, CMP, DBIL, LIPID #### [facility] [address] [place] [address] Dr. Karla Martinez NORMAL> or = 60 mg/dl - LOW CARDIOVASCULAR RISK <40 mg/dl - HIGH CARDIOVASCULAR RISKBluffton HospitalComment on above:Performed By: #### PHOS, URIC, MG, CMP, DBIL, LIPID #### [facility] [address] [place] [address] Dr. Karla Matute CALC NORMALSEE BELOWBluffton HospitalComment on above:Result Comment: <100 mg/dl OPTIMAL 100 - 129 mg/dl NEAR OR ABOVE OPTIMAL 130 - 159 mg/dl BORDERLINE HIGH 160 - 189 mg/dl HIGH >190 mg/dl VERY HIGH Performed By: #### PHOS, URIC, MG, CMP, DBIL, LIPID #### [facility] [address] [address] [address] Karla LagosTriglyceride [Mass/Vol]148 mg/dLNormal<=150The [facility] Comment on above:Performed By: #### PHOS, URIC, MG, CMP, DBIL, LIPID #### [facility] [address] [address] [address] Karla LagosVLDL CALC29.6 mg/dLNormalThe [facility] TrumbullComment on above: Performed By: #### PHOS, URIC, MG, CMP, DBIL, LIPID #### [facility] [address] [place] [address] Dr. Karla LagosMAGNESIUMon 81-60-3024Mwtyogvqm [Mass/Vol]1.5 mg/dLCritically low 1.8-2.4The [facility] TrumbullComment on above:Performed By: #### PHOS, URIC, MG, CMP, DBIL, LIPID #### [facility] [address] [place] [address] Dr. Karla LagosPHOSPHORUSon [phone] [Mass/Vol]3.8 mg/dLNormal2.6-4.7 The [facility] TrumbullComment on above:Performed By: #### PHOS, URIC, MG, CMP, DBIL, LIPID #### [facility] [address] [place] [address] Dr. Karla LagosPROF 14(COMP METB)on [id number] [Mass/Vol]4.1 g/dLNormal 3.4-5.0The [facility] TrumbullComment on above:Performed By: #### PHOS, URIC, MG, CMP, DBIL, LIPID #### [facility] [address] [place] [address] Dr. Karla LagosAlbumin/Globulin [Mass ratio]1.3 {ratio}NormalThe [facility] TrumbullComment on above:Performed By: #### PHOS, URIC, MG, CMP, DBIL, LIPID #### [facility] [address] [place] [address] Dr. Karla Maldonado [Catalytic activity/Vol]76 U/SChhnzf12-781Dcj [facility] TrumbullComment on above:Performed By: #### PHOS, URIC, MG, CMP, DBIL, LIPID #### [facility] [address] [place] [address] Dr. Karla Velasquez [Catalytic activity/Vol]36 U/PPjbius63-99Klz [facility] TrumbullComment on above:Performed By: #### PHOS, URIC, MG, CMP, DBIL, LIPID #### [facility] [address] [place] [address] Dr. Karla De La Vega gap [Moles/Vol]12.4 mmol/LNormalBrown Memorial Hospital Comment on above:Performed By: #### PHOS, URIC, MG, CMP, DBIL, LIPID #### [facility] [address] [place] [address] Dr. Karla Chow [Catalytic activity/Vol]21 U/VQdneoq50-99Rmk [facility] TrumbullComment on above:Performed By: #### PHOS, URIC, MG, CMP, DBIL, LIPID #### [facility] [address] [place] [address] Dr. Karla LagosBilirubin [Mass/Vol]0.6 mg/dLNormal0.2-1.0[facility] Comment on above:Performed By: #### PHOS, URIC, MG, CMP, DBIL, LIPID #### [facility] [address] [place] [address] Dr. Karla LagosCalcium [Mass/Vol]9.4 mg/dLNormal8.5-10.1[facility] Comment on above:Performed By: #### PHOS, URIC, MG, CMP, DBIL, LIPID #### [facility] [address] [place] [address] Dr. Karla LagosChloride [Moles/Vol]103 mmol/RIgjwwl17-485IppBrown Memorial Hospital Comment on above:Performed By: #### PHOS, URIC, MG, CMP, DBIL, LIPID #### [facility] [address] [place], [place] [id number] Dr. Karla LagosCO2 [Moles/Vol]30.6 mmol/YGtaqmk83.0-32.0The [facility] Comment on above:Performed By: #### PHOS, URIC, MG, CMP, DBIL, LIPID #### [facility] [address] [place] [address] Dr. Karla LagosCreatinine [Mass/Vol]1.34 mg/dLCritically high0.70-1.30The [facility]ullComment on above:Performed By: #### PHOS, URIC, MG, CMP, DBIL, LIPID #### [facility] [address] [place] [address] Dr. Karla DiopGFR-AF INDONESIAN>60Normal>=60The [facility] TrumbullComment on above:Performed By: #### PHOS, URIC, MG, CMP, DBIL, LIPID #### [facility] [address] [place] [address] Dr. Karla DiopGFR-NON AF NGWMPKPJ35 mL/min/1.92z6Jvytyplzti low>=60The [facility] Tr[facility]ullComment on above:Performed By: #### PHOS, URIC, MG, CMP, DBIL, LIPID #### [facility] [address] [place] [address] Dr. Karla LagosGlobulin (S) [Mass/Vol]3.2 g/dLNormalThe [facility]ullComment on above:Performed By: #### PHOS, URIC, MG, CMP, DBIL, LIPID #### [facility] [address] [place] [address] Dr. Karla LagosGlucose [Mass/Vol]125 mg/dLCritically xhgm13-415FwdBrown Memorial HospitalComment on above:Performed By: #### PHOS, URIC, MG, CMP, DBIL, LIPID #### [facility] [address] [place] [address] Dr. Karla LagosPotassium [Moles/Vol]5.0 mmol/LNormal3.5-5.1The [facility] Comment on above:Performed By: #### PHOS, URIC, MG, CMP, DBIL, LIPID #### [facility] [address] [address] [address] Karla LagosProtein [Mass/Vol]7.3 g/dLNormal6.4-8.2The [facility] Comment on above:Performed By: #### PHOS, URIC, MG, CMP, DBIL, LIPID #### [facility] [address] [address] [address] Karla LagosSodium [Moles/Vol]141 mmol/XOsfakw419-220Aae [facility] Comment on above:Performed By: #### PHOS, URIC, MG, CMP, DBIL, LIPID #### [facility] [address] [address] [address] Karla LagosUrea nitrogen [Mass/Vol]24.0 mg/dLCritically high7.0-18.0The [facility] Tr[facility]ullComment on above:Performed By: #### PHOS, URIC, MG, CMP, DBIL, LIPID #### [facility] [address] [address] [address] Karla Ellis nitrogen/Creatinine [Mass ratio]17.9 mg/mgNormalThe [facility] TrumbullComment on above:Performed By: #### PHOS, URIC, MG, CMP, DBIL, LIPID #### [facility] [address] [place] [address] Dr. Karla LagosURIC ACID SERUMon [id number] [Mass/Vol]5.0 mg/dLNormal 3.5-7.2The [facility] TrumbullComment on above:Performed By: #### PHOS, URIC, MG, CMP, DBIL, LIPID #### [facility] [address] [place] [address] Dr. Karla LagosFK506 (TACROLIMUS) WHOLE BLOODon [id number] (FK506), Blood8.0 ng/mLNormal2.0-20.0The [facility] TrumbullComment on above:Result Comment: Trough (immediately following transplant) 15.0 . Trough (steady state, 2 weeks or more after transplant): 3.0 - 8.0 . Performed by LC-MS/MS technology.Performed By: #### PHOS, URIC, MG, CMP, DBIL, LIPID #### [facility] [address] [place] [address] Dr. Karla JohnsonK VIRUS PCR QUANTon [id number] DNA QUANT PCR PLASMANegative NormalNegativeMartins Ferry Hospitalment on above:Result Comment: No BK DNA detected. . The linear range of the assay is 22 - 100,000,000 IU/mL.Performed By: #### PHOS, URIC, MG, CMP, DBIL, LIPID #### [facility] [address] [place] [address] Dr. Karla LagosLog10 BKV DNA PlasmaNormalThe [facility] TrumbullComment on above: Performed By: #### PHOS, URIC, MG, CMP, DBIL, LIPID #### [facility] [address] [place] [address] Dr. Karla LagosBILIRUBIN CONJUGATED (DIRECT)on [id number], CONJUGATED0.2 mg/dLNormal0.0-0.2The [facility] TrumbullComment on above:Performed By: #### PHOS, URIC, MG, CMP, DBIL, LIPID #### [facility] [address] [place] [address] Dr. Karla Bruce AUTO DIFFon [id number] #0.1 103/ulNormal0.0-0.1The [facility] TrumbullComment on above:Performed By: #### PHOS, URIC, MG, CMP, DBIL, LIPID #### [facility] [address] [place] [address] Dr. Karla LagosBasophils/100 WBC (Bld)0.8 %Normal0.2-2.0The [facility] Comment on above:Performed By: #### PHOS, URIC, MG, CMP, DBIL, LIPID #### [facility] [address] [place] [address] Dr. Karla Gruber #0.1 103/ulNormal0.0-0.7The [facility] TrumbullComment on above: Performed By: #### PHOS, URIC, MG, CMP, DBIL, LIPID #### [facility] [address] [place] [address] Dr. Karla Dioposinophils/100 WBC (Bld)1.7 %Normal0.9-7.0The [facility] Comment on above:Performed By: #### PHOS, URIC, MG, CMP, DBIL, LIPID #### [facility] [address] [place] [address] Dr. Karla Dioprythrocyte distribution width (RBC) [Ratio]14.1 %Ziycva00.0-15.0 The [facility] TrumbullComment on above:Performed By: #### PHOS, URIC, MG, CMP, DBIL, LIPID #### [facility] [address] [place] [address] Dr. Karla LagosHematocrit (Bld) [Volume fraction]48.1 %Vfyfvk41.0-54.0The [facility] TrumbullComment on above:Performed By: #### PHOS, URIC, MG, CMP, DBIL, LIPID #### [facility] [address] [place] [address] Dr. Karla LagosHemoglobin (Bld) [Mass/Vol]16.0 g/oLHdwxdv72.0-18.0The [facility] Tr[facility]ullComment on above:Performed By: #### PHOS, URIC, MG, CMP, DBIL, LIPID #### [facility] [address] [place] [address] Dr. Karla Youssef #0.03 10e3/ulNormal0.00-0.03The [facility] Hospitalment on above:Performed By: #### PHOS, URIC, MG, CMP, DBIL, LIPID #### [facility] [address] [place] [address] Dr. Karla Youssef %0.5 %Normal0.0-0.5The [facility] Tr[facility]ullComment on above: Performed By: #### PHOS, URIC, MG, CMP, DBIL, LIPID #### [facility] [address] [place] [address] Dr. Karla Gaming #1.0 103/ulCritically low1.2-3.8The [facility] Comment on above:Performed By: #### PHOS, URIC, MG, CMP, DBIL, LIPID #### [facility] [address] [address] [address] Karla Rodriguezhocytes/100 WBC (Bld)16.9 %Critically low20.5-60.0The [facility]ullComment on above:Performed By: #### PHOS, URIC, MG, CMP, DBIL, LIPID #### [facility] [address] [place] [address] Dr. Karla Lehman DIFF REQNONormalThe [facility] TrumbullComment on above: Performed By: #### PHOS, URIC, MG, CMP, DBIL, LIPID #### [facility] [address] [place] [address] Dr. Karla Snider (RBC) [Entitic mass]31.1 enRuhbgr29.9-34.0The [facility] HospitalComment on above:Performed By: #### PHOS, URIC, MG, CMP, DBIL, LIPID #### [facility] [address] [place] [address] Dr. Karla Snider (RBC) [Mass/Vol]33.3 g/zZQqsqfi50.9-35.2The [facility]ullComment on above:Performed By: #### PHOS, URIC, MG, CMP, DBIL, LIPID #### [facility] [address] [place] [address] Dr. Karla Snider (RBC) [Entitic vol]93.6 bJRvlolt92.0-94.0The [facility] Tr[facility]ullComment on above:Performed By: #### PHOS, URIC, MG, CMP, DBIL, LIPID #### [facility] [address] [place] [address] Dr. Karla Dave #0.6 103/ulNormal0.3-0.8The [facility]ullComment on above:Performed By: #### PHOS, URIC, MG, CMP, DBIL, LIPID #### [facility] [address] [address] [address] Karla Gomezocytes/100 WBC (Bld)10.1 %Normal1.7-12.0The [facility] Comment on above:Performed By: #### PHOS, URIC, MG, CMP, DBIL, LIPID #### [facility] [address] [place] [address] Dr. Karla Tejeda #4.2 103/ulNormal1.4-6.5The [facility]ullComment on above:Performed By: #### PHOS, URIC, MG, CMP, DBIL, LIPID #### [facility] [address] [place] [address] Dr. Karla Adrianutrophils/100 WBC (Bld)70.0 %Jhtnox15.0-75.0The [facility]ullComment on above:Performed By: #### PHOS, URIC, MG, CMP, DBIL, LIPID #### [facility] [address] [place] [address] Dr. Karla LagosPlatelet mean volume (Bld) [Entitic vol]10.2 fLNormal9.5-13.5The [facility]ullComment on above:Performed By: #### PHOS, URIC, MG, CMP, DBIL, LIPID #### [facility] [address] [place] [address] Dr. Karla LagosPLT226 103/ixQekopu830-412Ovm [facility] TrumbullComment on above: Performed By: #### PHOS, URIC, MG, CMP, DBIL, LIPID #### [facility] [address] [place] [address] Dr. Karla LagosRBC5.14 106/ulNormal4.70-6.10The [facility] TrumbullComment on above:Performed By: #### PHOS, URIC, MG, CMP, DBIL, LIPID #### [facility] [address] [place] [address] Dr. Karla LagosWBC6.0 103/ulNormal4.0-11.0The [facility] Tr[facility]ullComment on above: Performed By: #### PHOS, URIC, MG, CMP, DBIL, LIPID #### [facility] [address] [place] [address] Dr. Karla BuchananID PROFILEon [id number]-HDL RATIO NORMSProtestant Deaconess HospitalComment on above:Result Comment: 3.3 - 4.4 LOW RISK 4.4 - 7.1 AVERAGE RISK 7.1 - 11.0 MODERATE RISK >11.0 HIGH RISKPerformed By: #### PHOS, URIC, MG, CMP, DBIL, LIPID #### [facility] [address] [place] [address] Dr. Karla Bishopesterol [Mass/Vol]132 mg/dLNormal<=200[facility] Comment on above:Performed By: #### PHOS, URIC, MG, CMP, DBIL, LIPID #### [facility] [address] [place] [address] Dr. Karla Bishopesterol in HDL [Mass/Vol]50 mg/rEProfbl73-71JxkBrown Memorial HospitalComment on above:Performed By: #### PHOS, URIC, MG, CMP, DBIL, LIPID #### [facility] [address] [place] [address] Dr. Karla Mueller in LDL [Mass/Vol]54.6 mg/dLBluffton HospitalComment on above:Performed By: #### PHOS, URIC, MG, CMP, DBIL, LIPID #### [facility] [address] [place] [address] Dr. Karla Mueller.total/Cholesterol in HDL [Mass ratio]2.6 {ratio} NormalBrown Memorial HospitalComment on above:Performed By: #### PHOS, URIC, MG, CMP, DBIL, LIPID #### [facility] [address] [place] [address] Dr. Karla Martinez NORMAL> or = 60 mg/dl - LOW CARDIOVASCULAR RISK <40 mg/dl - HIGH CARDIOVASCULAR RISKBluffton HospitalComment on above:Performed By: #### PHOS, URIC, MG, CMP, DBIL, LIPID #### [facility] [address] [place] [address] Dr. Karla LagosLDL CALC NORMALSEE BELOWBluffton HospitalComment on above:Result Comment: <100 mg/dl OPTIMAL 100 - 129 mg/dl NEAR OR ABOVE OPTIMAL 130 - 159 mg/dl BORDERLINE HIGH 160 - 189 mg/dl HIGH >190 mg/dl VERY HIGH Performed By: #### PHOS, URIC, MG, CMP, DBIL, LIPID #### [facility] [address] [place] [address] Dr. Karla LagosTriglyceride [Mass/Vol]137 mg/dLNormal<=150The [facility] Comment on above:Performed By: #### PHOS, URIC, MG, CMP, DBIL, LIPID #### [facility] [address] [place] [address] Dr. Karla LagosVLDL CALC27.4 mg/dLBluffton HospitalComment on above: Performed By: #### PHOS, URIC, MG, CMP, DBIL, LIPID #### [facility] [address] [place] [address] Dr. Karla LagosMAGNESIUMon 10-08-0797Mxqmhhmyf [Mass/Vol]1.5 mg/dLCritically low 1.8-2.4The [facility]ullComment on above:Performed By: #### PHOS, URIC, MG, CMP, DBIL, LIPID #### [facility] [address] [place] [address] Dr. Karla LagosPHOSPHORUSon 11-18-7229Mnzwzyyjf [Mass/Vol]3.2 mg/dLNormal2.6-4.7 The [facility] TrumbullComment on above:Performed By: #### PHOS, URIC, MG, CMP, DBIL, LIPID #### [facility] [address] [place] [address] Dr. Karla Marinelli 14(COMP METB)on 17-21-6576Jjujtwm [Mass/Vol]4.1 g/dLNormal 3.4-5.0The [facility]reea HospitalComment on above:Performed By: #### PHOS, URIC, MG, CMP, DBIL, LIPID #### [facility] [address] [place] [address] Dr. Karla LagosAlbumin/Globulin [Mass ratio]1.4 {ratio}NormalThe [facility] on above:Performed By: #### PHOS, URIC, MG, CMP, DBIL, LIPID #### [facility] [address] [place] [address] Dr. Karla Maldonado [Catalytic activity/Vol]73 U/RKgkuob72-250Hij [facility] on above:Performed By: #### PHOS, URIC, MG, CMP, DBIL, LIPID #### [facility] [address] [place] [address] Dr. Karla Velasquez [Catalytic activity/Vol]27 U/BFlqncw52-84Hid [facility] Hospitalment on above:Performed By: #### PHOS, URIC, MG, CMP, DBIL, LIPID #### [facility] [address] [place] [address] Dr. Karla De La Vega gap [Moles/Vol]11.7 mmol/LNormalThe [facility] Comment on above:Performed By: #### PHOS, URIC, MG, CMP, DBIL, LIPID #### [facility] [address] [place] [address] Dr. Karla Chow [Catalytic activity/Vol]16 U/RRzypdp55-93Sqf [facility] Hospitalment on above:Performed By: #### PHOS, URIC, MG, CMP, DBIL, LIPID #### [facility] [address] [place] [address] Dr. Karla LagosBilirubin [Mass/Vol]0.8 mg/dLNormal0.2-1.0The [facility] Comment on above:Performed By: #### PHOS, URIC, MG, CMP, DBIL, LIPID #### [facility] [address] [place] [address] Dr. Karla LagosCalcium [Mass/Vol]9.1 mg/dLNormal8.5-10.1The [facility] Comment on above:Performed By: #### PHOS, URIC, MG, CMP, DBIL, LIPID #### [facility] [address] [place] [address] Dr. Karla LagosChloride [Moles/Vol]104 mmol/PVloewl85-030QcfBrown Memorial Hospital Comment on above:Performed By: #### PHOS, URIC, MG, CMP, DBIL, LIPID #### [facility] [address] [place] [address] Dr. Karla LagosCO2 [Moles/Vol]29.4 mmol/FWfhfhl75.0-32.0[facility] Comment on above:Performed By: #### PHOS, URIC, MG, CMP, DBIL, LIPID #### [facility] [address] [place] [address] Dr. Karla LagosCreatinine [Mass/Vol]1.27 mg/dLNormal0.70-1.30The [facility] TrumbullComment on above:Performed By: #### PHOS, URIC, MG, CMP, DBIL, LIPID #### [facility] [address] [place] [address] Dr. Karla DiopGFR-AF INDONESIAN>60Normal>=60[facility] Memorial HospitalComment on above:Performed By: #### PHOS, URIC, MG, CMP, DBIL, LIPID #### [facility] [address] [place] [address] Dr. Karla DiopGFR-NON AF PANXIRFA57 mL/min/1.30m4Svpnqciwvz low>=60The [facility] TrumbullComment on above:Performed By: #### PHOS, URIC, MG, CMP, DBIL, LIPID #### [facility] [address] [place] [address] Dr. Karla LagosGlobulin (S) [Mass/Vol]2.9 g/dLNormalThe [facility] TrumbullComment on above:Performed By: #### PHOS, URIC, MG, CMP, DBIL, LIPID #### [facility] [address] [place] [address] Dr. Karla LagosGlucose [Mass/Vol]113 mg/dLCritically qulc59-327Bah [facility]ullComment on above:Performed By: #### PHOS, URIC, MG, CMP, DBIL, LIPID #### [facility] [address] [place] [address] Dr. Karla LagosPotassium [Moles/Vol]4.1 mmol/LNormal3.5-5.1[facility] Comment on above:Performed By: #### PHOS, URIC, MG, CMP, DBIL, LIPID #### [facility] [address] [place] [address] Dr. Karla LagosProtein [Mass/Vol]7.0 g/dLNormal6.4-8.2The [facility] Comment on above:Performed By: #### PHOS, URIC, MG, CMP, DBIL, LIPID #### [facility] [address] [place] [address] Dr. Karla aLgosSodium [Moles/Vol]141 mmol/ERvkxss769-585Pnc [facility] Comment on above:Performed By: #### PHOS, URIC, MG, CMP, DBIL, LIPID #### [facility] [address] [place] [address] Dr. Karla LagosUrea nitrogen [Mass/Vol]18.0 mg/dLNormal7.0-18.0[facility] HospitalComment on above:Performed By: #### PHOS, URIC, MG, CMP, DBIL, LIPID #### [facility] [address] [place] [address] Dr. Karla LagosUrea nitrogen/Creatinine [Mass ratio]14.2 mg/mgNormalThe [facility] TrumbullComment on above:Performed By: #### PHOS, URIC, MG, CMP, DBIL, LIPID #### [facility] [address] [place] [address] Dr. Karla LagosURIC ACID SERUMon 01-35-3351Ahxpf [Mass/Vol]6.0 mg/dLNormal 3.5-7.2The [facility] TrumbullComment on above:Performed By: #### PHOS, URIC, MG, CMP, DBIL, LIPID #### [facility] [address] [address] [address] Karla LagosXR Chest 2 Views*on [id number] Chest 2 Views*FINDINGS: Comparison made with prior examination of September 24, 2020. Improved aeration with no persistent parenchymal consolidation. No pleural or pericardial effusions. Normal cardiac silhouette size. Sternotomy wires. Left central cardiac pacemaker. IMPRESSION: 1. Minimal residual post-inflammatory sequela. Report reported and signed by Anjum Remy on 01/13/2022 [id number] [facility] SpecialistECHOCARDIO M/2D COMPLETEon [id number] M/2D COMPLETEPatient: VISHAL DUKE Exam Date: 09/28/2021 : 1960 Gender:M Ordering : DR FEDERICO CHESTER M.D. Admission #: [id number] Family : DR ROSA M GONZALES M.D. Order #: [id number] CLICK HERE TO VIEW EXAM ECHOCARDIOGRAM REPORT [...] Area(A4C): 20.50 cm2 Left Atrium Systolic Volume(A2C): 41808 mm3 Left Atrium Systolic Volume(A4C): 35099 mm3 Mitral Valve MV E to A [...] by: Zuly Frazier M.D. on 09/28/2021 at 19:38[facility], Directon [id number]<0.2NormalNorthern [facility]bilt Rehabilitation Hospital SpecialistComment on above:Result Comment: Reference range change 03/03/2017. Prior reference range 0.1-0.3 mg/dL.Performed By: #### CBCAD, MG, URIC, LIPD, PHOS, CMP, DBIL #### [facility] [address] [place], [place] [id number] Blood Count with Auto Diffon 85-86-7830Gsvcrxnyu (Bld) [#/Vol]0.06 10*3/uLNormal0.00-0.20[facility] SpecialistComment on above:Performed By: #### CBCAD, MG, URIC, LIPD, PHOS, CMP, DBIL #### [facility] [address], [place] [id number]/100 WBC (Bld)1.0 %NormalMedina Hospital SpecialistComment on above:Performed By: #### CBCAD, MG, URIC, LIPD, PHOS, CMP, DBIL #### [facility] [address], [place] [id number] (Bld) [#/Vol]0.09 10*3/uLNormal0.02-0.50NoOhioHealth SpecialistComment on above:Performed By: #### CBCAD, MG, URIC, LIPD, PHOS, CMP, DBIL #### [facility] [address], [place] [id number]/100 WBC (Bld)1.5 %NormalMedina Hospital SpecialistComment on above:Performed By: #### CBCAD, MG, URIC, LIPD, PHOS, CMP, DBIL #### [facility] [address], [place] [id number] distribution width (RBC) [Ratio]14.1 %Normal 11.0-15.0[facility] SpecialistComment on above:Performed By: #### CBCAD, MG, URIC, LIPD, PHOS, CMP, DBIL #### [facility] [address], [place] [id number] (Bld) [Volume fraction]51.6 %High38.5-50.0[facility] SpecialistComment on above:Performed By: #### CBCAD, MG, URIC, LIPD, PHOS, CMP, DBIL #### [facility] [address], [place] [id number] (Bld) [Mass/Vol]16.5 g/mMSloldr78.0-17.1NortherFair[facility] Center SpecialistComment on above:Performed By: #### CBCAD, MG, URIC, LIPD, PHOS, CMP, DBIL #### [facility] [address], [place] [id number] (Bld) [#/Vol]1.0 10*3/uLNormal0.9-3.9NoOhioHealth SpecialistComment on above:Performed By: #### CBCAD, MG, URIC, LIPD, PHOS, CMP, DBIL #### [facility] [address], [place] [id number]/100 WBC (Bld)16.3 %NormalNoOhioHealth SpecialistComment on above:Performed By: #### CBCAD, MG, URIC, LIPD, PHOS, CMP, DBIL #### [facility] [address], [place] [id number] (RBC) [Entitic mass]29.9 chGyaovb53.0-33.0NoOhioHealth SpecialistComment on above:Performed By: #### CBCAD, MG, URIC, LIPD, PHOS, CMP, DBIL #### [facility] [address], [place] [id number] (RBC) [Mass/Vol]32.0 g/tSDgobst20.0-36.0NoOhioHealth SpecialistComment on above:Performed By: #### CBCAD, MG, URIC, LIPD, PHOS, CMP, DBIL #### [facility] [address], [place] [id number] (RBC) [Entitic vol]94 xSNasdxo96-268Xhnppdmp [facility] SpecialistComment on above:Performed By: #### CBCAD, MG, URIC, LIPD, PHOS, CMP, DBIL #### [facility] [address], [place] [id number] (Bld) [#/Vol]0.7 10*3/uLNormal0.2-0.9NoOhioHealth SpecialistComment on above:Performed By: #### CBCAD, MG, URIC, LIPD, PHOS, CMP, DBIL #### [facility] [address], [place] [id number]/100 WBC (Bld)11.1 %NormalMedina Hospital SpecialistComment on above:Performed By: #### CBCAD, MG, URIC, LIPD, PHOS, CMP, DBIL #### [facility] [address], [place] [id number] (Bld) [#/Vol]4.2 10*3/uLNormal1.5-7.8NoOhioHealth SpecialistComment on above:Performed By: #### CBCAD, MG, URIC, LIPD, PHOS, CMP, DBIL #### [facility] [address], [place] [id number]/100 WBC (Bld)69.8 %NormalNoOhioHealth SpecialistComment on above:Performed By: #### CBCAD, MG, URIC, LIPD, PHOS, CMP, DBIL #### [facility] [address], [place] [id number] mean volume (Bld) [Entitic vol]10.80 fLNormal 7.50-12.50NoOhioHealth SpecialistComment on above:Performed By: #### CBCAD, MG, URIC, LIPD, PHOS, CMP, DBIL #### [facility] [address], [place] [id number] (Bld) [#/Vol]247 10*3/kTKjpvbl652-511Gcnktyek [facility] SpecialistComment on above:Performed By: #### CBCAD, MG, URIC, LIPD, PHOS, CMP, DBIL #### [facility] [address], [place] [id number] (Bld) [#/Vol]5.52 10*6/uLNormal4.20-5.80NoOhioHealth SpecialistComment on above:Performed By: #### CBCAD, MG, URIC, LIPD, PHOS, CMP, DBIL #### [facility] [address], [place] [id number]-PG72.9 nXYmjlcu64.0-50.0NoOhioHealth Specialist Comment on above:Performed By: #### CBCAD, MG, URIC, LIPD, PHOS, CMP, DBIL #### [facility] [address], [place] [id number] (Bld) [#/Vol]6.0 10*3/uLNormal3.8-11.0NoOhioHealth SpecialistComment on above:Performed By: #### CBCAD, MG, URIC, LIPD, PHOS, CMP, DBIL #### [facility] [address], [place] [id number] Metabolic Panelon 11-85-9359Yfnvpny [Mass/Vol] 5.0 g/dLNormal3.6-5.1[facility] SpecialistComment on above:Performed By: #### CBCAD, MG, URIC, LIPD, PHOS, CMP, DBIL #### [facility] [address], [place] [id number]/Globulin [Mass ratio]2.8 {ratio}High1.0-2.5NoOhioHealth SpecialistComment on above:Performed By: #### CBCAD, MG, URIC, LIPD, PHOS, CMP, DBIL #### [facility] [address], [place] [id number] [Catalytic activity/Vol]79 U/WTaqjrf83-835Uhhoukio [facility] SpecialistComment on above:Performed By: #### CBCAD, MG, URIC, LIPD, PHOS, CMP, DBIL #### [facility] [address], [place] [id number] [Catalytic activity/Vol]29 U/LNormal9-46NoOhioHealth SpecialistComment on above:Result Comment: 03/17/2021 Female reference range changed.Performed By: #### CBCAD, MG, URIC, LIPD, PHOS, CMP, DBIL #### [facility] [address], [place] [id number] gap [Moles/Vol]23 mmol/EIuyy09-63UmpqylctOhioHealth SpecialistComment on above:Result Comment: Effective 04/22/2019 reference range changed.Performed By: #### CBCAD, MG, URIC, LIPD, PHOS, CMP, DBIL #### [facility] [address], [place] [id number] [Catalytic activity/Vol]25 U/BYihkzk61-06Jkwwzjbo [facility] SpecialistComment on above:Performed By: #### CBCAD, MG, URIC, LIPD, PHOS, CMP, DBIL #### [facility] [address], [place] [id number] [Mass/Vol]0.66 mg/dLNormal0.30-1.20NortKettering Health SpecialistComment on above:Performed By: #### CBCAD, MG, URIC, LIPD, PHOS, CMP, DBIL #### [facility] [address], [place] [id number]/CREA18 RatioNormal6-22NoOhioHealth Specialist Comment on above:Performed By: #### CBCAD, MG, URIC, LIPD, PHOS, CMP, DBIL #### [facility] [address], [place] [id number] [Mass/Vol]10.0 mg/dLNormal8.6-10.2[facility] SpecialistComment on above:Performed By: #### CBCAD, MG, URIC, LIPD, PHOS, CMP, DBIL #### [facility] [address], [place] [id number] [Moles/Vol]105 mmol/EWpguwj88-824Jigxlkjk [facility] SpecialistComment on above:Performed By: #### CBCAD, MG, URIC, LIPD, PHOS, CMP, DBIL #### [facility] [address], [place] [id number] [Moles/Vol]20 mmol/LReqgpc58-00Qimslngi [facility] SpecialistComment on above:Performed By: #### CBCAD, MG, URIC, LIPD, PHOS, CMP, DBIL #### [facility] [address], [place] [id number] [Mass/Vol]1.2 mg/dLNormal0.7-1.4NortKettering Health SpecialistComment on above:Performed By: #### CBCAD, MG, URIC, LIPD, PHOS, CMP, DBIL #### [facility] [address], [place] [id number] mL/min/1.18l7Mglkfg>60NortKettering Health SpecialistComment on above:Performed By: #### CBCAD, MG, URIC, LIPD, PHOS, CMP, DBIL #### [facility] [address], [place] [id number] mL/min/1.81b0Zvj>60NoOhioHealth Specialist Comment on above:Performed By: #### CBCAD, MG, URIC, LIPD, PHOS, CMP, DBIL #### [facility] [address], [place] [id number] (S) [Mass/Vol]1.8 g/dLLow1.9-3.7NoOhioHealth SpecialistComment on above:Performed By: #### CBCAD, MG, URIC, LIPD, PHOS, CMP, DBIL #### [facility] [address], [place] [id number] [Mass/Vol]121 mg/yPPdoy10-20Mgpkopsg [facility] SpecialistComment on above:Result Comment: For FASTING Glucose --- ADA reference ranges: Normal 65-99 mg/dl Prediabetes 100-125 Diabetes >/= 126Performed By: #### CBCAD, MG, URIC, LIPD, PHOS, CMP, DBIL #### [facility] [address], [place] [id number] [Moles/Vol]4.5 mmol/LNormal3.5-5.5NoOhioHealth SpecialistComment on above:Performed By: #### CBCAD, MG, URIC, LIPD, PHOS, CMP, DBIL #### [facility] [address], [place] [id number] [Mass/Vol]6.8 g/dLNormal6.1-8.1[facility] SpecialistComment on above:Performed By: #### CBCAD, MG, URIC, LIPD, PHOS, CMP, DBIL #### [facility] [address], [place] [id number] [Moles/Vol]143 mmol/GFlnevb870-543Useiujyo [facility] SpecialistComment on above:Performed By: #### CBCAD, MG, URIC, LIPD, PHOS, CMP, DBIL #### [facility] [address], [place] [id number] nitrogen [Mass/Vol]23 mg/dLNormal7-25NoOhioHealth SpecialistComment on above:Performed By: #### CBCAD, MG, URIC, LIPD, PHOS, CMP, DBIL #### [facility] [address], [place] [id number] Panelon 81-10-2575Iadyxzmrsmi [Mass/Vol]131 mg/dLNormal 125-200NoOhioHealth SpecialistComment on above:Result Comment: Low risk < 200mg/dL Borderline risk 201-239 mg/dl High risk > or equal to 240Performed By: #### CBCAD, MG, URIC, LIPD, PHOS, CMP, DBIL #### [facility] [address], [place] [id number] in HDL [Mass/Vol]43 mg/dLNormal>40NoOhioHealth SpecialistComment on above:Result Comment: High Cardiovascular Risk HDL <40 mg/dL Low Cardiovascular Risk HDL > or equal to 60 mg/dlPerformed By: #### CBCAD, MG, URIC, LIPD, PHOS, CMP, DBIL #### [facility] [address], [place] [id number] in LDL [Mass/Vol]52 mg/dLNormMiami Valley Hospital SpecialistComment on above:Result Comment: LDL ATP III CLASSIFICATION LDL less than 100 mg/dl Optimal LDL 100-129 mg/dl Near or above optimal LDL 130-159 Borderline high LDL 160-189 High LDL greater than 189 mg/dl Very HighPerformed By: #### CBCAD, MG, URIC, LIPD, PHOS, CMP, DBIL #### [facility] [address], [place] [id number] in VLDL [Mass/Vol]36 mg/dLNormalNoOhioHealth SpecialistComment on above:Performed By: #### CBCAD, MG, URIC, LIPD, PHOS, CMP, DBIL #### [facility] [address], [place] [id number].total/Cholesterol in HDL [Mass ratio]3 {ratio} NormalNorthern [facility] SpecialistComment on above:Performed By: #### CBCAD, MG, URIC, LIPD, PHOS, CMP, DBIL #### [facility] [address], [place] [id number] [Mass/Vol]180 mg/kNTlmo76-890Odkjvkcj [facility] SpecialistComment on above:Result Comment: TRIG ATPIII CLASSIFICATIONS TRIG less than 150 mg/dl Normal TRIG 150-199 mg/dl Borderline High TRIG 200-500 mg/dl High TRIG greather than 500 mg/dl Very HighPerformed By: #### CBCAD, MG, URIC, LIPD, PHOS, CMP, DBIL #### [facility] [address], [place] [id number] 95-69-5293Jqgjpgovm [Mass/Vol]1.9 mg/dLNormal 1.5-2.3NortKettering Health SpecialistComment on above:Performed By: #### CBCAD, MG, URIC, LIPD, PHOS, CMP, DBIL #### [facility] [address], [place] [id number] 22-92-4915Luiqydhtk [Mass/Vol]3.6 mg/dLNormal 2.2-4.4K[facility]tering Health HamiltonComment on above:Performed By: #### CBCAD, MG, URIC, LIPD, PHOS, CMP, DBIL #### [facility] [address], [place] [id number] Acidon 88-05-5621PZPY9.5 mg/dLNormal4.0-8.0[facility] Health HamiltonComment on above:Result Comment: Reference range change 03/03/2017. Prior reference range F 2.4-5.7mg/dL. M 3.4-7.0 mg/dL.Performed By: #### CBCAD, MG, URIC, LIPD, PHOS, CMP, DBIL #### [facility] [address], [place] [id number], Directon 11-19-9388JJUA<0.2NormalNoEast Liverpool City HospitalComment on above:Result Comment: Reference range change 03/03/2017. Prior reference range 0.1-0.3 mg/dL.Performed By: #### CBCAD, MG, URIC, LIPD, PHOS, CMP, DBIL #### [facility] [address], [place] [id number] Blood Count with Auto Diffon 20-40-5040Akwsobhyi (Bld) [#/Vol]0.06 10*3/uLNormal0.00-0.20NoEast Liverpool City HospitalComment on above:Performed By: #### CBCAD, MG, URIC, LIPD, PHOS, CMP, DBIL #### [facility] [address], [place] [id number]/100 WBC (Bld)1.1 %NormalNoEast Liverpool City HospitalComment on above:Performed By: #### CBCAD, MG, URIC, LIPD, PHOS, CMP, DBIL #### [facility] [address], [place] [id number] (Bld) [#/Vol]0.10 10*3/uLNormal0.02-0.50NoOhioHealth SpecialistComment on above:Performed By: #### CBCAD, MG, URIC, LIPD, PHOS, CMP, DBIL #### [facility] [address], [place] [id number]/100 WBC (Bld)1.8 %NormalMedina Hospital SpecialistComment on above:Performed By: #### CBCAD, MG, URIC, LIPD, PHOS, CMP, DBIL #### [facility] [address], [place] [id number] distribution width (RBC) [Ratio]14.5 %Normal 11.0-15.0[facility] SpecialistComment on above:Performed By: #### CBCAD, MG, URIC, LIPD, PHOS, CMP, DBIL #### [facility] [address], [place] [id number] (Bld) [Volume fraction]50.4 %High38.5-50.0[facility] SpecialistComment on above:Performed By: #### CBCAD, MG, URIC, LIPD, PHOS, CMP, DBIL #### [facility] [address], [place] [id number] (Bld) [Mass/Vol]16.4 g/bFCdrrcn60.0-17.1[facility] SpecialistComment on above:Performed By: #### CBCAD, MG, URIC, LIPD, PHOS, CMP, DBIL #### [facility] [address], [place] [id number] (Bld) [#/Vol]0.9 10*3/uLNormal0.9-3.9NoOhioHealth SpecialistComment on above:Performed By: #### CBCAD, MG, URIC, LIPD, PHOS, CMP, DBIL #### [facility] [address], [place] [id number]/100 WBC (Bld)15.2 %NormalNoOhioHealth SpecialistComment on above:Performed By: #### CBCAD, MG, URIC, LIPD, PHOS, CMP, DBIL #### [facility] [address], [place] [id number] (RBC) [Entitic mass]30.5 afKfyyab32.0-33.0NoOhioHealth SpecialistComment on above:Performed By: #### CBCAD, MG, URIC, LIPD, PHOS, CMP, DBIL #### [facility] [address], [place] [id number] (RBC) [Mass/Vol]32.5 g/fQRwoxhp56.0-36.0NoOhioHealth SpecialistComment on above:Performed By: #### CBCAD, MG, URIC, LIPD, PHOS, CMP, DBIL #### [facility] [address], [place] [id number] (RBC) [Entitic vol]94 uJFhebgy53-799Lejchgzd [facility] SpecialistComment on above:Performed By: #### CBCAD, MG, URIC, LIPD, PHOS, CMP, DBIL #### [facility] [address], [place] [id number] (Bld) [#/Vol]0.7 10*3/uLNormal0.2-0.9NoOhioHealth SpecialistComment on above:Performed By: #### CBCAD, MG, URIC, LIPD, PHOS, CMP, DBIL #### [facility] [address], [place] [id number]/100 WBC (Bld)12.7 %NormalNoOhioHealth SpecialistComment on above:Performed By: #### CBCAD, MG, URIC, LIPD, PHOS, CMP, DBIL #### [facility] [address], [place] [id number] (Bld) [#/Vol]3.9 10*3/uLNormal1.5-7.8NortKettering Health SpecialistComment on above:Performed By: #### CBCAD, MG, URIC, LIPD, PHOS, CMP, DBIL #### [facility] [address], [place] [id number]/100 WBC (Bld)68.7 %NormalNoOhioHealth SpecialistComment on above:Performed By: #### CBCAD, MG, URIC, LIPD, PHOS, CMP, DBIL #### [facility] [address], [place] [id number] mean volume (Bld) [Entitic vol]11.20 fLNormal 7.50-12.50NoOhioHealth SpecialistComment on above:Performed By: #### CBCAD, MG, URIC, LIPD, PHOS, CMP, DBIL #### [facility] [address], [place] [id number] (Bld) [#/Vol]230 10*3/dRAhbcsr060-128Jtpyonlk [facility] SpecialistComment on above:Performed By: #### CBCAD, MG, URIC, LIPD, PHOS, CMP, DBIL #### [facility] [address], [place] [id number] (Bld) [#/Vol]5.38 10*6/uLNormal4.20-5.80NoOhioHealth SpecialistComment on above:Performed By: #### CBCAD, MG, URIC, LIPD, PHOS, CMP, DBIL #### [facility] [address], [place] [id number]-SO73.1 kVDcwphc34.0-50.0[facility] Specialist Comment on above:Performed By: #### CBCAD, MG, URIC, LIPD, PHOS, CMP, DBIL #### [facility] [address], [place] [id number] (Bld) [#/Vol]5.6 10*3/uLNormal3.8-11.0[facility] SpecialistComment on above:Performed By: #### CBCAD, MG, URIC, LIPD, PHOS, CMP, DBIL #### [facility] [address], [place] [id number] Metabolic Panelon 98-54-3537Mkzdqsd [Mass/Vol] 5.0 g/dLNormal3.6-5.1[facility] SpecialistComment on above:Performed By: #### CBCAD, MG, URIC, LIPD, PHOS, CMP, DBIL #### [facility] [address], [place] [id number]/Globulin [Mass ratio]2.6 {ratio}High1.0-2.5NoOhioHealth SpecialistComment on above:Performed By: #### CBCAD, MG, URIC, LIPD, PHOS, CMP, DBIL #### [facility] [address], [place] [id number] [Catalytic activity/Vol]75 U/XUednja90-229Cmycfotm [facility] SpecialistComment on above:Performed By: #### CBCAD, MG, URIC, LIPD, PHOS, CMP, DBIL #### [facility] [address], [place] [id number] [Catalytic activity/Vol]30 U/LNormal9-46NoOhioHealth SpecialistComment on above:Result Comment: 03/17/2021 Female reference range changed.Performed By: #### CBCAD, MG, URIC, LIPD, PHOS, CMP, DBIL #### [facility] [address], [place] [id number] gap [Moles/Vol]18 mmol/ABlbcks35-04Wrtpiptm [facility] SpecialistComment on above:Result Comment: Effective 04/22/2019 reference range changed.Performed By: #### CBCAD, MG, URIC, LIPD, PHOS, CMP, DBIL #### [facility] [address], [place] [id number] [Catalytic activity/Vol]26 U/EDjosoq57-43Wxkmuofj [facility] SpecialistComment on above:Performed By: #### CBCAD, MG, URIC, LIPD, PHOS, CMP, DBIL #### [facility] [address], [place] [id number] [Mass/Vol]0.67 mg/dLNormal0.30-1.20NortMer[facility] Health [facility] Medical SpecialistComment on above:Performed By: #### CBCAD, MG, URIC, LIPD, PHOS, CMP, DBIL #### [facility] [address], [place] [id number]/CREA19 RatioNormal6-22NortMercy Health St. [facility] [employer] Operator Helper Comment on above:Performed By: #### CBCAD, MG, URIC, LIPD, PHOS, CMP, DBIL #### [facility] [address], [place] [id number] [Mass/Vol]9.9 mg/dLNormal8.6-10.2[facility] SpecialistComment on above:Performed By: #### CBCAD, MG, URIC, LIPD, PHOS, CMP, DBIL #### [facility] [address], [place] [id number] [Moles/Vol]103 mmol/EJdjeyy30-166Ygldbblg [facility] SpecialistComment on above:Performed By: #### CBCAD, MG, URIC, LIPD, PHOS, CMP, DBIL #### [facility] [address], [place] [id number] [Moles/Vol]25 mmol/IZomauq38-23Cbhtieay [facility] SpecialistComment on above:Performed By: #### CBCAD, MG, URIC, LIPD, PHOS, CMP, DBIL #### [facility] [address], [place] [id number] [Mass/Vol]1.1 mg/dLNormal0.7-1.4NortK[facility]tering Health SpecialistComment on above:Performed By: #### CBCAD, MG, URIC, LIPD, PHOS, CMP, DBIL #### [facility] [address], [place] [id number] mL/min/1.23o6Vhlbfn>60[facility] SpecialistComment on above:Performed By: #### CBCAD, MG, URIC, LIPD, PHOS, CMP, DBIL #### [facility] [address], [place] [id number] mL/min/1.68d3Ugdhrb>60NoOhioHealth SpecialistComment on above:Performed By: #### CBCAD, MG, URIC, LIPD, PHOS, CMP, DBIL #### [facility] [address], [place] [id number] (S) [Mass/Vol]1.9 g/dLNormal1.9-3.7NoOhioHealth SpecialistComment on above:Performed By: #### CBCAD, MG, URIC, LIPD, PHOS, CMP, DBIL #### [facility] [address], [place] [id number] [Mass/Vol]125 mg/yLYtaz19-78Jzcqettp [facility] SpecialistComment on above:Result Comment: For FASTING Glucose --- ADA reference ranges: Normal 65-99 mg/dl Prediabetes 100-125 Diabetes >/= 126Performed By: #### CBCAD, MG, URIC, LIPD, PHOS, CMP, DBIL #### [facility] [address], [place] [id number] [Moles/Vol]4.2 mmol/LNormal3.5-5.5NoOhioHealth SpecialistComment on above:Performed By: #### CBCAD, MG, URIC, LIPD, PHOS, CMP, DBIL #### [facility] [address], [place] [id number] [Mass/Vol]6.9 g/dLNormal6.1-8.1[facility] SpecialistComment on above:Performed By: #### CBCAD, MG, URIC, LIPD, PHOS, CMP, DBIL #### [facility] [address], [place] [id number] [Moles/Vol]141 mmol/WBziehd864-117Adumgboo [facility] SpecialistComment on above:Performed By: #### CBCAD, MG, URIC, LIPD, PHOS, CMP, DBIL #### [facility] [address] [place], [place] [id number] nitrogen [Mass/Vol]22 mg/dLNormal7-25NoOhioHealth SpecialistComment on above:Performed By: #### CBCAD, MG, URIC, LIPD, PHOS, CMP, DBIL #### [facility] [address], [place] [id number] A1Con 53-08-0895KHB863.11NormalNoOhioHealth SpecialistComment on above:Performed By: #### CBCAD, MG, URIC, LIPD, PHOS, CMP, DBIL #### [facility] [address], [place] [id number] (Bld) [Mass fraction]6.3 %High4.0-6.0NoEast Liverpool City HospitalComment on above:Performed By: #### CBCAD, MG, URIC, LIPD, PHOS, CMP, DBIL #### [facility] [address], [place] [id number] Panelon 58-96-6819Wscrovsonuj [Mass/Vol]110 mg/dLLow 125-200NoOhioHealth SpecialistComment on above:Result Comment: Low risk < 200mg/dL Borderline risk 201-239 mg/dl High risk > or equal to 240Performed By: #### CBCAD, MG, URIC, LIPD, PHOS, CMP, DBIL #### [facility] [address], [place] [id number] in HDL [Mass/Vol]38 mg/dLLow>40NoOhioHealth SpecialistComment on above:Result Comment: High Cardiovascular Risk HDL <40 mg/dL Low Cardiovascular Risk HDL > or equal to 60 mg/dlPerformed By: #### CBCAD, MG, URIC, LIPD, PHOS, CMP, DBIL #### [facility] [address], [place] [id number] in LDL [Mass/Vol]46 mg/dLNormalNoOhioHealth SpecialistComment on above:Result Comment: LDL ATP III CLASSIFICATION LDL less than 100 mg/dl Optimal LDL 100-129 mg/dl Near or above optimal LDL 130-159 Borderline high LDL 160-189 High LDL greater than 189 mg/dl Very HighPerformed By: #### CBCAD, MG, URIC, LIPD, PHOS, CMP, DBIL #### [facility] [address], [place] [id number] in VLDL [Mass/Vol]26 mg/dLNormalNoOhioHealth SpecialistComment on above:Performed By: #### CBCAD, MG, URIC, LIPD, PHOS, CMP, DBIL #### [facility] [address], [place] [id number].total/Cholesterol in HDL [Mass ratio]3 {ratio} NormalNoOhioHealth SpecialistComment on above:Performed By: #### CBCAD, MG, URIC, LIPD, PHOS, CMP, DBIL #### [facility] [address], [place] [id number] [Mass/Vol]131 mg/vCWblynn95-304Scqfokik [facility] SpecialistComment on above:Result Comment: TRIG ATPIII CLASSIFICATIONS TRIG less than 150 mg/dl Normal TRIG 150-199 mg/dl Borderline High TRIG 200-500 mg/dl High TRIG greather than 500 mg/dl Very HighPerformed By: #### CBCAD, MG, URIC, LIPD, PHOS, CMP, DBIL #### [facility] [address], [place] [id number] 30-76-7513Yomgcxtca [Mass/Vol]2.0 mg/dLNormal 1.5-2.3NortKettering Health SpecialistComment on above:Performed By: #### CBCAD, MG, URIC, LIPD, PHOS, CMP, DBIL #### [facility] [address], [place] [id number] 49-64-6092Axhduiktc [Mass/Vol]3.5 mg/dLNormal 2.2-4.4NoOhioHealth SpecialistComment on above:Performed By: #### CBCAD, MG, URIC, LIPD, PHOS, CMP, DBIL #### [facility] [address], [place] [id number] Acidon 39-48-1639DGNY6.6 mg/dLNormal4.0-8.0NoOhioHealth SpecialistComment on above:Result Comment: Reference range change 03/03/2017. Prior reference range F 2.4-5.7mg/dL. M 3.4-7.0 mg/dL.Performed By: #### CBCAD, MG, URIC, LIPD, PHOS, CMP, DBIL #### [facility] [address], [place] [id number], Directon 25-56-8325KHQV<0.2NormalNoEast Liverpool City HospitalComment on above:Result Comment: Reference range change 03/03/2017. Prior reference range 0.1-0.3 mg/dL.Performed By: #### CBCAD, MG, URIC, LIPD, PHOS, CMP, DBIL #### [facility] [address], [place] [id number] Blood Count with Auto Diffon 61-39-8827Zagfktclb (Bld) [#/Vol]0.07 10*3/uLNormal0.00-0.20NoEast [facility] City HospitalComment on above:Performed By: #### CBCAD, MG, URIC, LIPD, PHOS, CMP, DBIL #### [facility] [address], [place] [id number]/100 WBC (Bld)1.1 %NormalNoOhioHealth SpecialistComment on above:Performed By: #### CBCAD, MG, URIC, LIPD, PHOS, CMP, DBIL #### [facility] [address], [place] [id number] (Bld) [#/Vol]0.15 10*3/uLNormal0.02-0.50NoOhioHealth SpecialistComment on above:Performed By: #### CBCAD, MG, URIC, LIPD, PHOS, CMP, DBIL #### [facility] [address], [place] [id number]/100 WBC (Bld)2.4 %NormalMedina Hospital SpecialistComment on above:Performed By: #### CBCAD, MG, URIC, LIPD, PHOS, CMP, DBIL #### [facility] [address], [place] [id number] distribution width (RBC) [Ratio]14.0 %Normal 11.0-15.0[facility] SpecialistComment on above:Performed By: #### CBCAD, MG, URIC, LIPD, PHOS, CMP, DBIL #### [facility] [address], [place] [id number] (Bld) [Volume fraction]50.3 %High38.5-50.0[facility] HamiltonComment on above:Performed By: #### CBCAD, MG, URIC, LIPD, PHOS, CMP, DBIL #### [facility] [address], [place] [id number] (Bld) [Mass/Vol]16.5 g/oISzpcsf88.0-17.1[facility] SpecialistComment on above:Performed By: #### CBCAD, MG, URIC, LIPD, PHOS, CMP, DBIL #### [facility] [address], [place] [id number] (Bld) [#/Vol]0.9 10*3/uLNormal0.9-3.9[facility] SpecialistComment on above:Performed By: #### CBCAD, MG, URIC, LIPD, PHOS, CMP, DBIL #### [facility] [address], [place] [id number]/100 WBC (Bld)13.4 %NormalNoOhioHealth SpecialistComment on above:Performed By: #### CBCAD, MG, URIC, LIPD, PHOS, CMP, DBIL #### [facility] [address], [place] [id number] (RBC) [Entitic mass]29.9 dvEgvvlp61.0-33.0NoOhioHealth SpecialistComment on above:Performed By: #### CBCAD, MG, URIC, LIPD, PHOS, CMP, DBIL #### [facility] [address], [place] [id number] (RBC) [Mass/Vol]32.8 g/xGUciekj10.0-36.0NoOhioHealth SpecialistComment on above:Performed By: #### CBCAD, MG, URIC, LIPD, PHOS, CMP, DBIL #### [facility] [address], [place] [id number] (RBC) [Entitic vol]91 lKLdgqkq39-865Wexuymta [facility] SpecialistComment on above:Performed By: #### CBCAD, MG, URIC, LIPD, PHOS, CMP, DBIL #### [facility] [address], [place] [id number] (Bld) [#/Vol]0.5 10*3/uLNormal0.2-0.9NoOhioHealth SpecialistComment on above:Performed By: #### CBCAD, MG, URIC, LIPD, PHOS, CMP, DBIL #### [facility] [address], [place] [id number]/100 WBC (Bld)8.5 %NormalMedina Hospital SpecialistComment on above:Performed By: #### CBCAD, MG, URIC, LIPD, PHOS, CMP, DBIL #### [facility] [address], [place] [id number] (Bld) [#/Vol]4.7 10*3/uLNormal1.5-7.8NoOhioHealth SpecialistComment on above:Performed By: #### CBCAD, MG, URIC, LIPD, PHOS, CMP, DBIL #### [facility] [address], [place] [id number]/100 WBC (Bld)73.8 %NormalMedina Hospital SpecialistComment on above:Performed By: #### CBCAD, MG, URIC, LIPD, PHOS, CMP, DBIL #### [facility] [address], [place] [id number] mean volume (Bld) [Entitic vol]10.40 fLNormal 7.50-12.50NoOhioHealth SpecialistComment on above:Performed By: #### CBCAD, MG, URIC, LIPD, PHOS, CMP, DBIL #### [facility] [address], [place] [id number] (Bld) [#/Vol]266 10*3/jNBsisgs345-402Rtjrapog [facility] SpecialistComment on above:Performed By: #### CBCAD, MG, URIC, LIPD, PHOS, CMP, DBIL #### [facility] [address], [place] [id number] (Bld) [#/Vol]5.51 10*6/uLNormal4.20-5.80NoOhioHealth SpecialistComment on above:Performed By: #### CBCAD, MG, URIC, LIPD, PHOS, CMP, DBIL #### [facility] [address], [place] [id number]-LL26.4 hXJcdzwh20.0-50.0NoOhioHealth Specialist Comment on above:Performed By: #### CBCAD, MG, URIC, LIPD, PHOS, CMP, DBIL #### [facility] [address], [place] [id number] (Bld) [#/Vol]6.3 10*3/uLNormal3.8-11.0NoOhioHealth SpecialistComment on above:Performed By: #### CBCAD, MG, URIC, LIPD, PHOS, CMP, DBIL #### [facility] [address], [place] [id number] Metabolic Panelon 69-01-8266Kjhhqit [Mass/Vol] 5.0 g/dLNormal3.6-5.1[facility] SpecialistComment on above:Performed By: #### CBCAD, MG, URIC, LIPD, PHOS, CMP, DBIL #### [facility] [address], [place] [id number]/Globulin [Mass ratio]2.6 {ratio}High1.0-2.5[facility] SpecialistComment on above:Performed By: #### CBCAD, MG, URIC, LIPD, PHOS, CMP, DBIL #### [facility] [address], [place] [id number] [Catalytic activity/Vol]73 U/OHrcphx78-059Bqsilayf [place] [facility] SpecialistComment on above:Performed By: #### CBCAD, MG, URIC, LIPD, PHOS, CMP, DBIL #### [facility] [address], [place] [id number] [Catalytic activity/Vol]27 U/LNormal9-46NoOhioHealth SpecialistComment on above:Result Comment: 03/17/2021 Female reference range changed.Performed By: #### CBCAD, MG, URIC, LIPD, PHOS, CMP, DBIL #### [facility] [address], [place] [id number] gap [Moles/Vol]18 mmol/FLuzcmd80-78Hqqaqgkl [place] [facility] SpecialistComment on above:Result Comment: Effective 04/22/2019 reference range changed.Performed By: #### CBCAD, MG, URIC, LIPD, PHOS, CMP, DBIL #### [facility] [address], [place] [id number] [Catalytic activity/Vol]23 U/GQgbemn58-49Hofjweyu [place] [facility] SpecialistComment on above:Performed By: #### CBCAD, MG, URIC, LIPD, PHOS, CMP, DBIL #### [facility] [address], [place] [id number] [Mass/Vol]0.68 mg/dLNormal0.30-1.20NoOhioHealth SpecialistComment on above:Performed By: #### CBCAD, MG, URIC, LIPD, PHOS, CMP, DBIL #### [facility] [address], [place] [id number]/CREA16 RatioNormal6-22NortKettering HealthTumbler Machine Operator Helper Comment on above:Performed By: #### CBCAD, MG, URIC, LIPD, PHOS, CMP, DBIL #### [facility] [address], [place] [id number] [Mass/Vol]10.0 mg/dLNormal8.6-10.2[facility] SpecialistComment on above:Performed By: #### CBCAD, MG, URIC, LIPD, PHOS, CMP, DBIL #### [facility] [address], [place] [id number] [Moles/Vol]103 mmol/DEdxzct69-117Wiyyntna [place] [facility] SpecialistComment on above:Performed By: #### CBCAD, MG, URIC, LIPD, PHOS, CMP, DBIL #### [facility] [address], [place] [id number] [Moles/Vol]25 mmol/SPgrndg68-00Xzytnmxe [place] [facility] SpecialistComment on above:Performed By: #### CBCAD, MG, URIC, LIPD, PHOS, CMP, DBIL #### [facility] [address], [place] [id number] [Mass/Vol]1.1 mg/dLNormal0.7-1.4NortKettering Health SpecialistComment on above:Performed By: #### CBCAD, MG, URIC, LIPD, PHOS, CMP, DBIL #### [facility] [address], [place] [id number] mL/min/1.53e2Ibenmq>60Nortco[facility] hospitaln [place] [facility] SpecialistComment on above:Performed By: #### CBCAD, MG, URIC, LIPD, PHOS, CMP, DBIL #### [facility] [address], [place] [id number] mL/min/1.14r0Sfuonv>60NortMer[facility] Medical SpecialistComment on above:Performed By: #### CBCAD, MG, URIC, LIPD, PHOS, CMP, DBIL #### [facility] [address], [place] [id number] (S) [Mass/Vol]1.9 g/dLNormal1.9-3.7NoOhioHealth SpecialistComment on above:Performed By: #### CBCAD, MG, URIC, LIPD, PHOS, CMP, DBIL #### [facility] [address], [place] [id number] [Mass/Vol]109 mg/kSKwbh01-74Otqqjzsh [place] [facility] SpecialistComment on above:Result Comment: For FASTING Glucose --- ADA reference ranges: Normal 65-99 mg/dl Prediabetes 100-125 Diabetes >/= 126Performed By: #### CBCAD, MG, URIC, LIPD, PHOS, CMP, DBIL #### [facility] [address], [place] [id number] [Moles/Vol]4.7 mmol/LNormal3.5-5.5NoOhioHealth SpecialistComment on above:Performed By: #### CBCAD, MG, URIC, LIPD, PHOS, CMP, DBIL #### [facility] [address], [place] [id number] [Mass/Vol]6.9 g/dLNormal6.1-8.1[facility] SpecialistComment on above:Performed By: #### CBCAD, MG, URIC, LIPD, PHOS, CMP, DBIL #### [facility] [address], [place] [id number] [Moles/Vol]141 mmol/DIfsgtk338-355Xqsxdpgv [place] [facility] SpecialistComment on above:Performed By: #### CBCAD, MG, URIC, LIPD, PHOS, CMP, DBIL #### [facility] [address], [place] [id number] nitrogen [Mass/Vol]18 mg/dLNormal7-25NoOhioHealth SpecialistComment on above:Performed By: #### CBCAD, MG, URIC, LIPD, PHOS, CMP, DBIL #### [facility] [address], [place] [id number] Panelon 75-07-4939Cvhdbeqbxxl [Mass/Vol]121 mg/dLLow 125-200NoOhioHealth SpecialistComment on above:Result Comment: Low risk < 200mg/dL Borderline risk 201-239 mg/dl High risk > or equal to 240Performed By: #### CBCAD, MG, URIC, LIPD, PHOS, CMP, DBIL #### [facility] [address], [place] [id number] in HDL [Mass/Vol]41 mg/dLNormal>40NoOhioHealth SpecialistComment on above:Result Comment: High Cardiovascular Risk HDL <40 mg/dL Low Cardiovascular Risk HDL > or equal to 60 mg/dlPerformed By: #### CBCAD, MG, URIC, LIPD, PHOS, CMP, DBIL #### [facility] [address], [place] [id number] in LDL [Mass/Vol]56 mg/dLNormMiami Valley Hospital SpecialistComment on above:Result Comment: LDL ATP III CLASSIFICATION LDL less than 100 mg/dl Optimal LDL 100-129 mg/dl Near or above optimal LDL 130-159 Borderline high LDL 160-189 High LDL greater than 189 mg/dl Very HighPerformed By: #### CBCAD, MG, URIC, LIPD, PHOS, CMP, DBIL #### [facility] [address], [place] [id number] in VLDL [Mass/Vol]24 mg/dLNormalNoOhioHealth SpecialistComment on above:Performed By: #### CBCAD, MG, URIC, LIPD, PHOS, CMP, DBIL #### [facility] [address], [place] [id number].total/Cholesterol in HDL [Mass ratio]3 {ratio} NormalNoOhioHealth SpecialistComment on above:Performed By: #### CBCAD, MG, URIC, LIPD, PHOS, CMP, DBIL #### [facility] [address] [place], [place] [id number] [Mass/Vol]118 mg/bFObxwsk61-357Mpjumuzn [facility] SpecialistComment on above:Result Comment: TRIG ATPIII CLASSIFICATIONS TRIG less than 150 mg/dl Normal TRIG 150-199 mg/dl Borderline High TRIG 200-500 mg/dl High TRIG greather than 500 mg/dl Very HighPerformed By: #### CBCAD, MG, URIC, LIPD, PHOS, CMP, DBIL #### [facility] [address], [place] [id number] 89-38-9806Afojjzqmz [Mass/Vol]2.0 mg/dLNormal 1.5-2.3[facility]ortco[facility] hospitaln [facility] SpecialistComment on above:Performed By: #### CBCAD, MG, URIC, LIPD, PHOS, CMP, DBIL #### [facility] [address], [place] [id number] 53-01-4179Fgboayvtw [Mass/Vol]3.3 mg/dLNormal 2.2-4.4[facility] SpecialistComment on above:Performed By: #### CBCAD, MG, URIC, LIPD, PHOS, CMP, DBIL #### [facility] [address], [place] [id number] - TACROLIMUSon 82-65-6968ZRRXDSMHBB, HIGHLY SENSITIVE, LC/MS/MS6.3 mcg/LNormalNortcopper queen community hospitaln [facility] SpecialistComment on above:Order Comment: [facility] performed at: QPT, [facility], [address], [address] [place], [address], Spare Parts Clerk: Shaheed Bazzi MDQuest Collection Date/Time: [id number] Results Received Date/Time: [id number] Reported Date/Time: [id number] Comment: No definitive therapeutic or toxic ranges have been established. Optimal blood drug levels are influenced by type of transplant, patient response, time post- transplant, co-administration of other drugs, and drug formulation. The following trough range is a suggested guideline: 5.0-20.0 mcg/L. This test was developed and its analytical performance characteristics have been determined by [employer]. It has not been cleared or approved by the FDA. This assay has been validated pursuant to the CLIA regulations and is used for clinical purposes.Performed By: #### CBCAD, MG, URIC, LIPD, PHOS, CMP, DBIL #### [facility] [address], [place] [id number] Acidon 43-09-3507FDDQ3.1 mg/dLNormal4.0-8.0K[facility]tering Health HamiltonComment on above:Result Comment: Reference range change 03/03/2017. Prior reference range F 2.4-5.7mg/dL. M 3.4-7.0 mg/dL.Performed By: #### CBCAD, MG, URIC, LIPD, PHOS, CMP, DBIL #### [facility] [address], [place] [id number], Directon 33-45-0785BHWF<0.2NormalNoEast Liverpool City HospitalComment on above:Result Comment: Reference range change 03/03/2017. Prior reference range 0.1-0.3 mg/dL.Performed By: #### CBCAD, MG, URIC, LIPD, PHOS, CMP, DBIL #### [facility] [address], [place] [id number] Blood Count with Auto Diffon 57-16-1149Yxhjxxouh (Bld) [#/Vol]0.05 10*3/uLNormal0.00-0.20NoEast Liverpool City HospitalComment on above:Performed By: #### CBCAD, MG, URIC, LIPD, PHOS, CMP, DBIL #### [facility] [address], [place] [id number]/100 WBC (Bld)0.8 %NormalKettering Health HamiltonComment on above:Performed By: #### CBCAD, MG, URIC, LIPD, PHOS, CMP, DBIL #### [facility] [address], [place] [id number] (Bld) [#/Vol]0.10 10*3/uLNormal0.02-0.50NoOhioHealth SpecialistComment on above:Performed By: #### CBCAD, MG, URIC, LIPD, PHOS, CMP, DBIL #### [facility] [address], [place] [id number]/100 WBC (Bld)1.6 %NormalNoOhioHealth SpecialistComment on above:Performed By: #### CBCAD, MG, URIC, LIPD, PHOS, CMP, DBIL #### [facility] [address], [place] [id number] distribution width (RBC) [Ratio]14.6 %Normal 11.0-15.0[facility] SpecialistComment on above:Performed By: #### CBCAD, MG, URIC, LIPD, PHOS, CMP, DBIL #### [facility] [address], [place] [id number] (Bld) [Volume fraction]50.7 %High38.5-50.0[facility] SpecialistComment on above:Performed By: #### CBCAD, MG, URIC, LIPD, PHOS, CMP, DBIL #### [facility] [address], [place] [id number] (Bld) [Mass/Vol]16.2 g/vFVdhehj12.0-17.1[facility] SpecialistComment on above:Performed By: #### CBCAD, MG, URIC, LIPD, PHOS, CMP, DBIL #### [facility] [address], [place] [id number] (Bld) [#/Vol]1.0 10*3/uLNormal0.9-3.9NoOhioHealth SpecialistComment on above:Performed By: #### CBCAD, MG, URIC, LIPD, PHOS, CMP, DBIL #### [facility] [address], [place] [id number]/100 WBC (Bld)16.2 %NormalNortKettering Health SpecialistComment on above:Performed By: #### CBCAD, MG, URIC, LIPD, PHOS, CMP, DBIL #### [facility] [address], [place] [id number] (RBC) [Entitic mass]30.0 wzMchkzi68.0-33.0NortKettering Health SpecialistComment on above:Performed By: #### CBCAD, MG, URIC, LIPD, PHOS, CMP, DBIL #### [facility] [address], [place] [id number] (RBC) [Mass/Vol]32.0 g/dJJgyuky91.0-36.0NortKettering Health SpecialistComment on above:Performed By: #### CBCAD, MG, URIC, LIPD, PHOS, CMP, DBIL #### [facility] [address], [place] [id number] (RBC) [Entitic vol]94 wEFxvjug33-469Fsksxhbs [place] [facility] SpecialistComment on above:Performed By: #### CBCAD, MG, URIC, LIPD, PHOS, CMP, DBIL #### [facility] [address], [place] [id number] (Bld) [#/Vol]0.9 10*3/uLNormal0.2-0.9NortK[facility]tering Health SpecialistComment on above:Performed By: #### CBCAD, MG, URIC, LIPD, PHOS, CMP, DBIL #### [facility] [address], [place] [id number]/100 WBC (Bld)13.4 %NormalNortKettering Health SpecialistComment on above:Performed By: #### CBCAD, MG, URIC, LIPD, PHOS, CMP, DBIL #### [facility] [address], [place] [id number] (Bld) [#/Vol]4.3 10*3/uLNormal1.5-7.8NortK[facility]tering Health SpecialistComment on above:Performed By: #### CBCAD, MG, URIC, LIPD, PHOS, CMP, DBIL #### [facility] [address], [place] [id number]/100 WBC (Bld)67.7 %NormalNoOhioHealth SpecialistComment on above:Performed By: #### CBCAD, MG, URIC, LIPD, PHOS, CMP, DBIL #### [facility] [address], [place] [id number] mean volume (Bld) [Entitic vol]11.00 fLNormal 7.50-12.50NoOhioHealth SpecialistComment on above:Performed By: #### CBCAD, MG, URIC, LIPD, PHOS, CMP, DBIL #### [facility] [address], [place] [id number] (Bld) [#/Vol]239 10*3/kLKetkac083-067Zmlsqfdi [place] [facility] SpecialistComment on above:Performed By: #### CBCAD, MG, URIC, LIPD, PHOS, CMP, DBIL #### [facility] [address], [place] [id number] (Bld) [#/Vol]5.40 10*6/uLNormal4.20-5.80NoOhioHealth SpecialistComment on above:Performed By: #### CBCAD, MG, URIC, LIPD, PHOS, CMP, DBIL #### [facility] [address], [place] [id number]-RT51.2 uQZahv12.0-50.0NoOhioHealth Specialist Comment on above:Performed By: #### CBCAD, MG, URIC, LIPD, PHOS, CMP, DBIL #### [facility] [address], [place] [id number] (Bld) [#/Vol]6.4 10*3/uLNormal3.8-11.0NoOhioHealth SpecialistComment on above:Performed By: #### CBCAD, MG, URIC, LIPD, PHOS, CMP, DBIL #### [facility] [address], [place] [id number] Metabolic Panelon 33-38-2413Psrepic [Mass/Vol] 4.9 g/dLNormal3.6-5.1[facility] SpecialistComment on above:Performed By: #### CBCAD, MG, URIC, LIPD, PHOS, CMP, DBIL #### [facility] [address], [place] [id number]/Globulin [Mass ratio]3.3 {ratio}High1.0-2.5NoOhioHealth SpecialistComment on above:Performed By: #### CBCAD, MG, URIC, LIPD, PHOS, CMP, DBIL #### [facility] [address], [place] [id number] [Catalytic activity/Vol]73 U/RVpbjvc92-251Snmthgbo [place] [facility] SpecialistComment on above:Performed By: #### CBCAD, MG, URIC, LIPD, PHOS, CMP, DBIL #### [facility] [address], [place] [id number] [Catalytic activity/Vol]26 U/LNormal9-46NoOhioHealth SpecialistComment on above:Result Comment: 03/17/2021 Female reference range changed.Performed By: #### CBCAD, MG, URIC, LIPD, PHOS, CMP, DBIL #### [facility] [address], [place] [id number] gap [Moles/Vol]16 mmol/YQumsun87-75Zvftlvcw [place] [facility] SpecialistComment on above:Result Comment: Effective 04/22/2019 reference range changed.Performed By: #### CBCAD, MG, URIC, LIPD, PHOS, CMP, DBIL #### [facility] [address], [place] [id number] [Catalytic activity/Vol]23 U/CQvubtk37-91Hnfkvgqq [place] [facility] SpecialistComment on above:Performed By: #### CBCAD, MG, URIC, LIPD, PHOS, CMP, DBIL #### [facility] [address], [place] [id number] [Mass/Vol]0.76 mg/dLNormal0.30-1.20[facility] [place] [facility] SpecialistComment on above:Performed By: #### CBCAD, MG, URIC, LIPD, PHOS, CMP, DBIL #### [facility] [address], [place] [id number]/CREA15 RatioNormal6-22Nortcopper queen community hospitaln [place] [facility] Machine Operator Helper Comment on above:Performed By: #### CBCAD, MG, URIC, LIPD, PHOS, CMP, DBIL #### [facility] [address], [place] [id number] [Mass/Vol]9.8 mg/dLNormal8.6-10.2[facility] [place] [facility] SpecialistComment on above:Performed By: #### CBCAD, MG, URIC, LIPD, PHOS, CMP, DBIL #### [facility] [address], [place] [id number] [Moles/Vol]103 mmol/EIyqkti87-562Gcsjvnrw [place] [facility] SpecialistComment on above:Performed By: #### CBCAD, MG, URIC, LIPD, PHOS, CMP, DBIL #### [facility] [address], [place] [id number] [Moles/Vol]26 mmol/COobqsn09-08Vlpwdant [place] [facility] SpecialistComment on above:Performed By: #### CBCAD, MG, URIC, LIPD, PHOS, CMP, DBIL #### [facility] [address], [place] [id number] [Mass/Vol]1.1 mg/dLNormal0.7-1.4Nortcopper queen community hospitaln [place] [facility] SpecialistComment on above:Performed By: #### CBCAD, MG, URIC, LIPD, PHOS, CMP, DBIL #### [facility] [address], [place] [id number] mL/min/1.48t7Ofmxcj>60[facility] [place] [facility] SpecialistComment on above:Performed By: #### CBCAD, MG, URIC, LIPD, PHOS, CMP, DBIL #### [facility] [address], [place] [id number] mL/min/1.12o7Fqakad>60NoOhioHealth SpecialistComment on above:Performed By: #### CBCAD, MG, URIC, LIPD, PHOS, CMP, DBIL #### [facility] [address], [place] [id number] (S) [Mass/Vol]1.5 g/dLLow1.9-3.7NoOhioHealth SpecialistComment on above:Performed By: #### CBCAD, MG, URIC, LIPD, PHOS, CMP, DBIL #### [facility] [address], [place] [id number] [Mass/Vol]130 mg/eITvbp55-24Fcdcnwhw [place] [facility] SpecialistComment on above:Result Comment: For FASTING Glucose --- ADA reference ranges: Normal 65-99 mg/dl Prediabetes 100-125 Diabetes >/= 126Performed By: #### CBCAD, MG, URIC, LIPD, PHOS, CMP, DBIL #### [facility] [address], [place] [id number] [Moles/Vol]4.6 mmol/LNormal3.5-5.5NoOhioHealth SpecialistComment on above:Performed By: #### CBCAD, MG, URIC, LIPD, PHOS, CMP, DBIL #### [facility] [address], [place] [id number] [Mass/Vol]6.4 g/dLNormal6.1-8.1[facility] SpecialistComment on above:Performed By: #### CBCAD, MG, URIC, LIPD, PHOS, CMP, DBIL #### [facility] [address], [place] [id number] [Moles/Vol]140 mmol/FGgiumn572-373Lhpgqjqz [place] [facility] SpecialistComment on above:Performed By: #### CBCAD, MG, URIC, LIPD, PHOS, CMP, DBIL #### [facility] [address], [place] [id number] nitrogen [Mass/Vol]17 mg/dLNormal7-25NortKettering Health SpecialistComment on above:Performed By: #### CBCAD, MG, URIC, LIPD, PHOS, CMP, DBIL #### [facility] [address], [place] [id number] Panelon 20-06-6425Xbruczjuqbn [Mass/Vol]111 mg/dLLow 125-200NoOhioHealth SpecialistComment on above:Result Comment: Low risk < 200mg/dL Borderline risk 201-239 mg/dl High risk > or equal to 240Performed By: #### CBCAD, MG, URIC, LIPD, PHOS, CMP, DBIL #### [facility] [address], [place] [address]Ocikuoipibc in HDL [Mass/Vol]38 mg/dLLow>40NoOhioHealth SpecialistComment on above:Result Comment: High Cardiovascular Risk HDL <40 mg/dL Low Cardiovascular Risk HDL > or equal to 60 mg/dlPerformed By: #### CBCAD, MG, URIC, LIPD, PHOS, CMP, DBIL #### [facility] [address], [place] [id number] in LDL [Mass/Vol]47 mg/dLNormMiami Valley Hospital SpecialistComment on above:Result Comment: LDL ATP III CLASSIFICATION LDL less than 100 mg/dl Optimal LDL 100-129 mg/dl Near or above optimal LDL 130-159 Borderline high LDL 160-189 High LDL greater than 189 mg/dl Very HighPerformed By: #### CBCAD, MG, URIC, LIPD, PHOS, CMP, DBIL #### [facility] [address], [place] [id number] in VLDL [Mass/Vol]26 mg/dLNoMer[facility] SpecialistComment on above:Performed By: #### CBCAD, MG, URIC, LIPD, PHOS, CMP, DBIL #### [facility] [address] [place], [place] [id number].total/Cholesterol in HDL [Mass ratio]3 {ratio} NormalNoOhioHealth SpecialistComment on above:Performed By: #### CBCAD, MG, URIC, LIPD, PHOS, CMP, DBIL #### [facility] [address], [place] [id number] [Mass/Vol]132 mg/nGVahcjl83-005Lbytuosn [place] [facility] SpecialistComment on above:Result Comment: TRIG ATPIII CLASSIFICATIONS TRIG less than 150 mg/dl Normal TRIG 150-199 mg/dl Borderline High TRIG 200-500 mg/dl High TRIG greather than 500 mg/dl Very HighPerformed By: #### CBCAD, MG, URIC, LIPD, PHOS, CMP, DBIL #### [facility] [address], [place] [id number] 16-21-2754Geotmjbwq [Mass/Vol]1.7 mg/dLNormal 1.5-2.3NoOhioHealth SpecialistComment on above:Performed By: #### CBCAD, MG, URIC, LIPD, PHOS, CMP, DBIL #### [facility] [address], [place] [id number] 81-03-2024Fbxnpyrwj [Mass/Vol]3.7 mg/dLNormal 2.2-4.4NoOhioHealth SpecialistComment on above:Performed By: #### CBCAD, MG, URIC, LIPD, PHOS, CMP, DBIL #### [facility] [address], [place] [id number] Acidon 69-79-9051ZRAP6.0 mg/dLNormal4.0-8.0NoOhioHealth SpecialistComment on above:Result Comment: Reference range change 03/03/2017. Prior reference range F 2.4-5.7mg/dL. M 3.4-7.0 mg/dL.Performed By: #### CBCAD, MG, URIC, LIPD, PHOS, CMP, DBIL #### [facility] [address], [place] [id number] Functionon 51-76-3656Uofvlpfog FunctionMR #: [id number] [facility] PT. Name: Vishal Duke Date: 06/02/2021 [...] Syed MD Date Trans: 06/06/2021 02:28 P/ DN_JN:[id number] cc: Rosa M Gonzales M.D. [address] [place], [place] [address]Jess[facility] [address]TyeybvQkoSelect Medical Cleveland Clinic Rehabilitation Hospital, AvonBilirubin, Directon 26-71-9234VVXL<0.2NormalNorthern [place] Medical SpecialistComment on above:Result Comment: Reference range change 03/03/2017. Prior reference range 0.1-0.3 mg/dL.Performed By: #### CBCAD, MG, URIC, LIPD, PHOS, CMP, DBIL #### [facility] [address] [place], [place] [id number] Blood Count with Auto Diffon 68-25-7684Wlqxnddcq (Bld) [#/Vol]0.06 10*3/uLNormal0.00-0.20NoOhioHealth SpecialistComment on above:Performed By: #### CBCAD, MG, URIC, LIPD, PHOS, CMP, DBIL #### [facility] [address], [place] [id number]/100 WBC (Bld)0.9 %NormalMedina Hospital SpecialistComment on above:Performed By: #### CBCAD, MG, URIC, LIPD, PHOS, CMP, DBIL #### [facility] [address], [place] [id number] (Bld) [#/Vol]0.12 10*3/uLNormal0.02-0.50NoOhioHealth SpecialistComment on above:Performed By: #### CBCAD, MG, URIC, LIPD, PHOS, CMP, DBIL #### [facility] [address], [place] [id number]/100 WBC (Bld)1.8 %NormalMedina Hospital SpecialistComment on above:Performed By: #### CBCAD, MG, URIC, LIPD, PHOS, CMP, DBIL #### [facility] [address], [place] [id number] distribution width (RBC) [Ratio]14.7 %Normal 11.0-15.0[facility] SpecialistComment on above:Performed By: #### CBCAD, MG, URIC, LIPD, PHOS, CMP, DBIL #### [facility] [address], [place] [id number] (Bld) [Volume fraction]50.8 %High38.5-50.0NoOhioHealth SpecialistComment on above:Performed By: #### CBCAD, MG, URIC, LIPD, PHOS, CMP, DBIL #### [facility] [address], [place] [id number] (Bld) [Mass/Vol]16.5 g/rYWfcrws82.0-17.1[facility]Fair[facility] SpecialistComment on above:Performed By: #### CBCAD, MG, URIC, LIPD, PHOS, CMP, DBIL #### [facility] [address], [place] [id number] (Bld) [#/Vol]1.1 10*3/uLNormal0.9-3.9NortKettering Health SpecialistComment on above:Performed By: #### CBCAD, MG, URIC, LIPD, PHOS, CMP, DBIL #### [facility] [address], [place] [id number]/100 WBC (Bld)16.1 %NormalNortKettering Health SpecialistComment on above:Performed By: #### CBCAD, MG, URIC, LIPD, PHOS, CMP, DBIL #### [facility] [address], [place] [id number] (RBC) [Entitic mass]29.8 teHiqznj11.0-33.0NoOhioHealth SpecialistComment on above:Performed By: #### CBCAD, MG, URIC, LIPD, PHOS, CMP, DBIL #### [facility] [address], [place] [id number] (RBC) [Mass/Vol]32.5 g/lDIyxppr54.0-36.0NoOhioHealth SpecialistComment on above:Performed By: #### CBCAD, MG, URIC, LIPD, PHOS, CMP, DBIL #### [facility] [address], [place] [id number] (RBC) [Entitic vol]92 hNVedhry65-707Ubdbnave [facility] SpecialistComment on above:Performed By: #### CBCAD, MG, URIC, LIPD, PHOS, CMP, DBIL #### [facility] [address], [place] [id number] (Bld) [#/Vol]0.8 10*3/uLNormal0.2-0.9NoOhioHealth SpecialistComment on above:Performed By: #### CBCAD, MG, URIC, LIPD, PHOS, CMP, DBIL #### [facility] [address], [place] [id number]/100 WBC (Bld)11.4 %NormalMedina Hospital SpecialistComment on above:Performed By: #### CBCAD, MG, URIC, LIPD, PHOS, CMP, DBIL #### [facility] [address], [place] [id number] (Bld) [#/Vol]4.6 10*3/uLNormal1.5-7.8NortKettering Health SpecialistComment on above:Performed By: #### CBCAD, MG, URIC, LIPD, PHOS, CMP, DBIL #### [facility] [address], [place] [id number]/100 WBC (Bld)69.2 %[facility] SpecialistComment on above:Performed By: #### CBCAD, MG, URIC, LIPD, PHOS, CMP, DBIL #### [facility] [address], [place] [id number] mean volume (Bld) [Entitic vol]10.60 fLNormal 7.50-12.50NoOhioHealth SpecialistComment on above:Performed By: #### CBCAD, MG, URIC, LIPD, PHOS, CMP, DBIL #### [facility] [address], [place] [id number] (Bld) [#/Vol]285 10*3/gHTryypw365-609Pxtmitwy [facility] SpecialistComment on above:Performed By: #### CBCAD, MG, URIC, LIPD, PHOS, CMP, DBIL #### [facility] [address], [place] [id number] (Bld) [#/Vol]5.53 10*6/uLNormal4.20-5.80NoOhioHealth SpecialistComment on above:Performed By: #### CBCAD, MG, URIC, LIPD, PHOS, CMP, DBIL #### [facility] [address], [place] [id number]-VK14.8 jXDoizdh11.0-50.0NoOhioHealth Specialist Comment on above:Performed By: #### CBCAD, MG, URIC, LIPD, PHOS, CMP, DBIL #### [facility] [address], [place] [id number] (Bld) [#/Vol]6.6 10*3/uLNormal3.8-11.0NoOhioHealth SpecialistComment on above:Performed By: #### CBCAD, MG, URIC, LIPD, PHOS, CMP, DBIL #### [facility] [address], [place] [id number] Metabolic Panelon 58-54-0108Uyrglrm [Mass/Vol] 5.0 g/dLNormal3.6-5.1[facility] SpecialistComment on above:Performed By: #### CBCAD, MG, URIC, LIPD, PHOS, CMP, DBIL #### [facility] [address], [place] [id number]/Globulin [Mass ratio]2.6 {ratio}High1.0-2.5NoOhioHealth SpecialistComment on above:Performed By: #### CBCAD, MG, URIC, LIPD, PHOS, CMP, DBIL #### [facility] [address], [place] [id number] [Catalytic activity/Vol]93 U/DMytaen50-840Mmifhnae [facility] SpecialistComment on above:Performed By: #### CBCAD, MG, URIC, LIPD, PHOS, CMP, DBIL #### [facility] [address], [place] [id number] [Catalytic activity/Vol]30 U/LNormal9-46NoOhioHealth SpecialistComment on above:Result Comment: 03/17/2021 Female reference range changed.Performed By: #### CBCAD, MG, URIC, LIPD, PHOS, CMP, DBIL #### [facility] [address], [place] [id number] gap [Moles/Vol]21 mmol/HZxez36-03SnudauugOhioHealth SpecialistComment on above:Result Comment: Effective 04/22/2019 reference range changed.Performed By: #### CBCAD, MG, URIC, LIPD, PHOS, CMP, DBIL #### [facility] [address], [place] [id number] [Catalytic activity/Vol]26 U/UOkodbn54-35Gjihufoe [facility] SpecialistComment on above:Performed By: #### CBCAD, MG, URIC, LIPD, PHOS, CMP, DBIL #### [facility] [address], [place] [id number] [Mass/Vol]0.72 mg/dLNormal0.30-1.20NoOhioHealth SpecialistComment on above:Performed By: #### CBCAD, MG, URIC, LIPD, PHOS, CMP, DBIL #### [facility] [address], [place] [id number]/CREA15 RatioNormal6-22NoOhioHealth Specialist Comment on above:Performed By: #### CBCAD, MG, URIC, LIPD, PHOS, CMP, DBIL #### [facility] [address], [place] [id number] [Mass/Vol]10.4 mg/dLHigh8.6-10.2[facility] SpecialistComment on above:Performed By: #### CBCAD, MG, URIC, LIPD, PHOS, CMP, DBIL #### [facility] [address], [place] [id number] [Moles/Vol]104 mmol/VWwdoxh24-274Mhawmqbj [facility] SpecialistComment on above:Performed By: #### CBCAD, MG, URIC, LIPD, PHOS, CMP, DBIL #### [facility] [address], [place] [id number] [Moles/Vol]24 mmol/TVidjsq02-18Xyabpozu [facility] SpecialistComment on above:Performed By: #### CBCAD, MG, URIC, LIPD, PHOS, CMP, DBIL #### [facility] [address], [place] [id number] [Mass/Vol]1.2 mg/dLNormal0.7-1.4NoOhioHealth SpecialistComment on above:Performed By: #### CBCAD, MG, URIC, LIPD, PHOS, CMP, DBIL #### [facility] [address], [place] [id number] mL/min/1.24r1Mqjavs>60NortKettering Health SpecialistComment on above:Performed By: #### CBCAD, MG, URIC, LIPD, PHOS, CMP, DBIL #### [facility] [address], [place] [id number] mL/min/1.67i4Prdmxk>60NortKettering Health SpecialistComment on above:Performed By: #### CBCAD, MG, URIC, LIPD, PHOS, CMP, DBIL #### [facility] [address], [place] [id number] (S) [Mass/Vol]1.9 g/dLNormal1.9-3.7NoOhioHealth SpecialistComment on above:Performed By: #### CBCAD, MG, URIC, LIPD, PHOS, CMP, DBIL #### [facility] [address], [place] [id number] [Mass/Vol]108 mg/mUNuau87-69Krenfzpo [facility] SpecialistComment on above:Result Comment: For FASTING Glucose --- ADA reference ranges: Normal 65-99 mg/dl Prediabetes 100-125 Diabetes >/= 126Performed By: #### CBCAD, MG, URIC, LIPD, PHOS, CMP, DBIL #### [facility] [address], [place] [id number] [Moles/Vol]5.0 mmol/LNormal3.5-5.5NoOhioHealth SpecialistComment on above:Performed By: #### CBCAD, MG, URIC, LIPD, PHOS, CMP, DBIL #### [facility] [address], [place] [id number] [Mass/Vol]6.9 g/dLNormal6.1-8.1[facility] SpecialistComment on above:Performed By: #### CBCAD, MG, URIC, LIPD, PHOS, CMP, DBIL #### [facility] [address], [place] [id number] [Moles/Vol]143 mmol/GCzpfvu749-357Rahjvkhl [facility] SpecialistComment on above:Performed By: #### CBCAD, MG, URIC, LIPD, PHOS, CMP, DBIL #### [facility] [address], [place] [id number] nitrogen [Mass/Vol]17 mg/dLNormal7-25NortKettering Health SpecialistComment on above:Performed By: #### CBCAD, MG, URIC, LIPD, PHOS, CMP, DBIL #### [facility] [address], [place] [id number] A1Con 37-33-0668OPD671.85NormalNortKettering Health SpecialistComment on above:Performed By: #### A1C #### [facility] [address], [place] [id number] (Bld) [Mass fraction]6.5 %High4.0-6.0NoOhioHealth SpecialistComment on above:Performed By: #### A1C #### [facility] [address], [place] [id number] Panelon 13-73-3227Aliphvzyaij [Mass/Vol]129 mg/dLNormal 125-200NortKettering Health SpecialistComment on above:Result Comment: Low risk < 200mg/dL Borderline risk 201-239 mg/dl High risk > or equal to 240Performed By: #### CBCAD, MG, URIC, LIPD, PHOS, CMP, DBIL #### [facility] [address], [place] [id number] in HDL [Mass/Vol]44 mg/dLNormal>40NoOhioHealth SpecialistComment on above:Result Comment: High Cardiovascular Risk HDL <40 mg/dL Low Cardiovascular Risk HDL > or equal to 60 mg/dlPerformed By: #### CBCAD, MG, URIC, LIPD, PHOS, CMP, DBIL #### [facility] [address], [place] [id number] in LDL [Mass/Vol]61 mg/dLNormalNortKettering Health SpecialistComment on above:Result Comment: LDL ATP III CLASSIFICATION LDL less than 100 mg/dl Optimal LDL 100-129 mg/dl Near or above optimal LDL 130-159 Borderline high LDL 160-189 High LDL greater than 189 mg/dl Very HighPerformed By: #### CBCAD, MG, URIC, LIPD, PHOS, CMP, DBIL #### [facility] [address], [place] [id number] in VLDL [Mass/Vol]24 mg/dLNormalNoOhioHealth SpecialistComment on above:Performed By: #### CBCAD, MG, URIC, LIPD, PHOS, CMP, DBIL #### [facility] [address], [place] [id number].total/Cholesterol in HDL [Mass ratio]3 {ratio} NormalNoEast Liverpool City HospitalComment on above:Performed By: #### CBCAD, MG, URIC, LIPD, PHOS, CMP, DBIL #### [facility] [address], [place] [id number] [Mass/Vol]119 mg/tMOkvpar71-714Qfnppayp [facility] SpecialistComment on above:Result Comment: TRIG ATPIII CLASSIFICATIONS TRIG less than 150 mg/dl Normal TRIG 150-199 mg/dl Borderline High TRIG 200-500 mg/dl High TRIG greather than 500 mg/dl Very HighPerformed By: #### CBCAD, MG, URIC, LIPD, PHOS, CMP, DBIL #### [facility] [address], [place] [id number] 00-24-5354Heipqnpbw [Mass/Vol]1.8 mg/dLNormal 1.5-2.3NoEast Liverpool City HospitalComment on above:Performed By: #### CBCAD, MG, URIC, LIPD, PHOS, CMP, DBIL #### [facility] [address], [place] [id number] 93-90-3052Dpyyvhrkm [Mass/Vol]4.3 mg/dLNormal 2.2-4.4NoOhioHealth SpecialistComment on above:Performed By: #### CBCAD, MG, URIC, LIPD, PHOS, CMP, DBIL #### [facility] [address], [place] [id number] Acidon 49-44-0014KAGI1.1 mg/dLNormal4.0-8.0Kettering Health HamiltonComment on above:Result Comment: Reference range change 03/03/2017. Prior reference range F 2.4-5.7mg/dL. M 3.4-7.0 mg/dL.Performed By: #### CBCAD, MG, URIC, LIPD, PHOS, CMP, DBIL #### [facility] [address], [place] [id number], Directon 73-01-5519ONHX<0.2NormalKettering Health HamiltonComment on above:Result Comment: Reference range change 03/03/2017. Prior reference range 0.1-0.3 mg/dL.Performed By: #### CBCAD, MG, URIC, LIPD, PHOS, CMP, DBIL #### [facility] [address], [place] [id number] Blood Count with Auto Diffon 30-81-2542Huycyjmkr (Bld) [#/Vol]0.07 10*3/uLNormal0.00-0.20NoEast Liverpool City HospitalComaleda e. [facility] on above:Performed By: #### CBCAD, MG, URIC, LIPD, PHOS, CMP, DBIL #### [facility] [address], [place] [id number]/100 WBC (Bld)1.1 %NormalNoOhioHealth SpecialistComment on above:Performed By: #### CBCAD, MG, URIC, LIPD, PHOS, CMP, DBIL #### [facility] [address], [place] [id number] (Bld) [#/Vol]0.12 10*3/uLNormal0.02-0.50NoOhioHealth SpecialistComment on above:Performed By: #### CBCAD, MG, URIC, LIPD, PHOS, CMP, DBIL #### [facility] [address], [place] [id number]/100 WBC (Bld)1.8 %NormalNoOhioHealth SpecialistComment on above:Performed By: #### CBCAD, MG, URIC, LIPD, PHOS, CMP, DBIL #### [facility] [address], [place] [id number] distribution width (RBC) [Ratio]14.7 %Normal 11.0-15.0[facility] SpecialistComment on above:Performed By: #### CBCAD, MG, URIC, LIPD, PHOS, CMP, DBIL #### [facility] [address], [place] [id number] (Bld) [Volume fraction]50.5 %High38.5-50.0NoOhioHealth SpecialistComment on above:Performed By: #### CBCAD, MG, URIC, LIPD, PHOS, CMP, DBIL #### [facility] [address], [place] [id number] (Bld) [Mass/Vol]16.4 g/gJRvxjpo49.0-17.1[facility] SpecialistComment on above:Performed By: #### CBCAD, MG, URIC, LIPD, PHOS, CMP, DBIL #### [facility] [address], [place] [id number] (Bld) [#/Vol]1.0 10*3/uLNormal0.9-3.9[facility] SpecialistComment on above:Performed By: #### CBCAD, MG, URIC, LIPD, PHOS, CMP, DBIL #### [facility] [address], [place] [id number]/100 WBC (Bld)14.7 %NormalNoOhioHealth SpecialistComment on above:Performed By: #### CBCAD, MG, URIC, LIPD, PHOS, CMP, DBIL #### [facility] [address], [place] [id number] (RBC) [Entitic mass]29.4 gyPkypij78.0-33.0NoOhioHealth SpecialistComment on above:Performed By: #### CBCAD, MG, URIC, LIPD, PHOS, CMP, DBIL #### [facility] [address], [place] [id number] (RBC) [Mass/Vol]32.5 g/eKUwvjhb26.0-36.0NoOhioHealth SpecialistComment on above:Performed By: #### CBCAD, MG, URIC, LIPD, PHOS, CMP, DBIL #### [facility] [address], [place] [id number] (RBC) [Entitic vol]91 mMNbxgwu38-406Zpydclej [facility] SpecialistComment on above:Performed By: #### CBCAD, MG, URIC, LIPD, PHOS, CMP, DBIL #### [facility] [address], [place] [id number] (Bld) [#/Vol]0.7 10*3/uLNormal0.2-0.9NoOhioHealth SpecialistComment on above:Performed By: #### CBCAD, MG, URIC, LIPD, PHOS, CMP, DBIL #### [facility] [address], [place] [id number]/100 WBC (Bld)10.4 %NormalMedina Hospital SpecialistComment on above:Performed By: #### CBCAD, MG, URIC, LIPD, PHOS, CMP, DBIL #### [facility] [address], [place] [id number] (Bld) [#/Vol]4.7 10*3/uLNormal1.5-7.8NoOhioHealth SpecialistComment on above:Performed By: #### CBCAD, MG, URIC, LIPD, PHOS, CMP, DBIL #### [facility] [address], [place] [id number]/100 WBC (Bld)71.4 %NormalNoOhioHealth SpecialistComment on above:Performed By: #### CBCAD, MG, URIC, LIPD, PHOS, CMP, DBIL #### [facility] [address], [place] [id number] mean volume (Bld) [Entitic vol]10.70 fLNormal 7.50-12.50NoOhioHealth SpecialistComment on above:Performed By: #### CBCAD, MG, URIC, LIPD, PHOS, CMP, DBIL #### [facility] [address], [place] [id number] (Bld) [#/Vol]261 10*3/rQLljevc931-307Excyzsvz [facility] SpecialistComment on above:Performed By: #### CBCAD, MG, URIC, LIPD, PHOS, CMP, DBIL #### [facility] [address], [place] [id number] (Bld) [#/Vol]5.57 10*6/uLNormal4.20-5.80NoOhioHealth SpecialistComment on above:Performed By: #### CBCAD, MG, URIC, LIPD, PHOS, CMP, DBIL #### [facility] [address], [place] [id number]-IK29.2 yUOnjdzk80.0-50.0NoOhioHealth Specialist Comment on above:Performed By: #### CBCAD, MG, URIC, LIPD, PHOS, CMP, DBIL #### [facility] [address], [place] [id number] (Bld) [#/Vol]6.6 10*3/uLNormal3.8-11.0NoOhioHealth SpecialistComment on above:Performed By: #### CBCAD, MG, URIC, LIPD, PHOS, CMP, DBIL #### [facility] [address], [place] [id number] Metabolic Panelon 12-89-7670Upkwuou [Mass/Vol] 4.9 g/dLNormal3.6-5.1[facility] SpecialistComment on above:Performed By: #### CBCAD, MG, URIC, LIPD, PHOS, CMP, DBIL #### [facility] [address], [place] [id number]/Globulin [Mass ratio]2.6 {ratio}High1.0-2.5NoOhioHealth SpecialistComment on above:Performed By: #### CBCAD, MG, URIC, LIPD, PHOS, CMP, DBIL #### [facility] [address], [place] [id number] [Catalytic activity/Vol]89 U/AJmcgzj63-658Iiwfywmu [facility] SpecialistComment on above:Performed By: #### CBCAD, MG, URIC, LIPD, PHOS, CMP, DBIL #### [facility] [address], [place] [id number] [Catalytic activity/Vol]30 U/LNormal9-46NoOhioHealth SpecialistComment on above:Result Comment: 03/17/2021 Female reference range changed.Performed By: #### CBCAD, MG, URIC, LIPD, PHOS, CMP, DBIL #### [facility] [address], [place] [id number] gap [Moles/Vol]20 mmol/ESemmtw61-41Qxmslkin [facility] SpecialistComment on above:Result Comment: Effective 04/22/2019 reference range changed.Performed By: #### CBCAD, MG, URIC, LIPD, PHOS, CMP, DBIL #### [facility] [address], [place] [id number] [Catalytic activity/Vol]23 U/QRwehjz43-06Rvhmojub [facility] SpecialistComment on above:Performed By: #### CBCAD, MG, URIC, LIPD, PHOS, CMP, DBIL #### [facility] [address], [place] [id number] [Mass/Vol]0.52 mg/dLNormal0.30-1.20NoOhioHealth SpecialistComment on above:Performed By: #### CBCAD, MG, URIC, LIPD, PHOS, CMP, DBIL #### [facility] [address], [place] [address]FFG/CREA18 RatioNormal6-22NoOhioHealth Specialist Comment on above:Performed By: #### CBCAD, MG, URIC, LIPD, PHOS, CMP, DBIL #### [facility] [address], [place] [id number] [Mass/Vol]10.1 mg/dLNormal8.6-10.2[facility] SpecialistComment on above:Performed By: #### CBCAD, MG, URIC, LIPD, PHOS, CMP, DBIL #### [facility] [address], [place] [id number] [Moles/Vol]102 mmol/DXpiyyu64-905Yoaomwnv [facility] SpecialistComment on above:Performed By: #### CBCAD, MG, URIC, LIPD, PHOS, CMP, DBIL #### [facility] [address], [place] [id number] [Moles/Vol]23 mmol/PFlsnhm73-24Yrdzbhbe [facility] SpecialistComment on above:Performed By: #### CBCAD, MG, URIC, LIPD, PHOS, CMP, DBIL #### [facility] [address], [place] [id number] [Mass/Vol]1.3 mg/dLNormal0.7-1.4NortKettering Health SpecialistComment on above:Performed By: #### CBCAD, MG, URIC, LIPD, PHOS, CMP, DBIL #### [facility] [address], [place] [id number] mL/min/1.81f3Yytbdq>60NoOhioHealth SpecialistComment on above:Performed By: #### CBCAD, MG, URIC, LIPD, PHOS, CMP, DBIL #### [facility] [address], [place] [id number] mL/min/1.22f6Rhp>60NoOhioHealth Specialist Comment on above:Performed By: #### CBCAD, MG, URIC, LIPD, PHOS, CMP, DBIL #### [facility] [address], [place] [id number] (S) [Mass/Vol]1.9 g/dLNormal1.9-3.7NoOhioHealth SpecialistComment on above:Performed By: #### CBCAD, MG, URIC, LIPD, PHOS, CMP, DBIL #### [facility] [address], [place] [id number] [Mass/Vol]128 mg/wWYppz76-44Kzzivlpd [facility] SpecialistComment on above:Result Comment: For FASTING Glucose --- ADA reference ranges: Normal 65-99 mg/dl Prediabetes 100-125 Diabetes >/= 126Performed By: #### CBCAD, MG, URIC, LIPD, PHOS, CMP, DBIL #### [facility] [address], [place] [id number] [Moles/Vol]4.4 mmol/LNormal3.5-5.5NortKettering Health SpecialistComment on above:Performed By: #### CBCAD, MG, URIC, LIPD, PHOS, CMP, DBIL #### [facility] [address], [place] [id number] [Mass/Vol]6.8 g/dLNormal6.1-8.1[facility] SpecialistComment on above:Performed By: #### CBCAD, MG, URIC, LIPD, PHOS, CMP, DBIL #### [facility] [address], [place] [id number] [Moles/Vol]140 mmol/HGewgeu611-754Yetbvgvu [facility] SpecialistComment on above:Performed By: #### CBCAD, MG, URIC, LIPD, PHOS, CMP, DBIL #### [facility] [address], [place] [id number] nitrogen [Mass/Vol]23 mg/dLNormal7-25NoOhioHealth SpecialistComment on above:Performed By: #### CBCAD, MG, URIC, LIPD, PHOS, CMP, DBIL #### [facility] [address], [place] [id number] Panelon 92-03-0878Ngximshuebf [Mass/Vol]123 mg/dLLow 125-200NoOhioHealth SpecialistComment on above:Result Comment: Low risk < 200mg/dL Borderline risk 201-239 mg/dl High risk > or equal to 240Performed By: #### CBCAD, MG, URIC, LIPD, PHOS, CMP, DBIL #### [facility] [address], [place] [id number] in HDL [Mass/Vol]41 mg/dLNormal>40NoOhioHealth SpecialistComment on above:Result Comment: High Cardiovascular Risk HDL <40 mg/dL Low Cardiovascular Risk HDL > or equal to 60 mg/dlPerformed By: #### CBCAD, MG, URIC, LIPD, PHOS, CMP, DBIL #### [facility] [address], [place] [address]Ucfvfyhpzeu in LDL [Mass/Vol]51 mg/dLNormalNortKettering Health SpecialistComment on above:Result Comment: LDL ATP III CLASSIFICATION LDL less than 100 mg/dl Optimal LDL 100-129 mg/dl Near or above optimal LDL 130-159 Borderline high LDL 160-189 High LDL greater than 189 mg/dl Very HighPerformed By: #### CBCAD, MG, URIC, LIPD, PHOS, CMP, DBIL #### [facility] [address], [place] [id number] in VLDL [Mass/Vol]31 mg/dLNormalNortcopper queen community hospitaln [facility] SpecialistComment on above:Performed By: #### CBCAD, MG, URIC, LIPD, PHOS, CMP, DBIL #### [facility] [address], [place] [id number].total/Cholesterol in HDL [Mass ratio]3 {ratio} NormalNortcopper queen community hospitaln [facility] SpecialistComment on above:Performed By: #### CBCAD, MG, URIC, LIPD, PHOS, CMP, DBIL #### [facility] [address], [place] [address]Xaoxlfbkthqt [Mass/Vol]156 mg/uYJmov43-070Zpicjktz [facility] SpecialistComment on above:Result Comment: TRIG ATPIII CLASSIFICATIONS TRIG less than 150 mg/dl Normal TRIG 150-199 mg/dl Borderline High TRIG 200-500 mg/dl High TRIG greather than 500 mg/dl Very HighPerformed By: #### CBCAD, MG, URIC, LIPD, PHOS, CMP, DBIL #### [facility] [address], [place] [id number] 30-39-2559Podpninea [Mass/Vol]2.0 mg/dLNormal 1.5-2.3NortKettering Health SpecialistComment on above:Performed By: #### CBCAD, MG, URIC, LIPD, PHOS, CMP, DBIL #### [facility] [address], [place] [id number] 02-95-1209Leeefrrsa [Mass/Vol]4.2 mg/dLNormal 2.2-4.4NoOhioHealth SpecialistComment on above:Performed By: #### CBCAD, MG, URIC, LIPD, PHOS, CMP, DBIL #### [facility] [address], [place] [id number] Acidon 04-25-1115OTZU6.3 mg/dLNormal4.0-8.0NoOhioHealth SpecialistComment on above:Result Comment: Reference range change 03/03/2017. Prior reference range F 2.4-5.7mg/dL. 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 D/C 12/11/2020 ICD [...] he saw his regular [facility] by his superintendent house to agreed with and endorsed the care we rendered. The device was interrogated it in their office and it appears to be functioning appropriately. Because of all the above he is pleased with his care. He'll be following up henceforth with the [facility] superintendent house and we advised him were always happy [...] transplantation History of Pacemaker insertion History of [place] tooth extraction Current Meds Medication NameInstruction Aspirin [...] Vital Signs Recorded: 23Apr2021 05:40PMRecorded: 23Apr2021 03:22PM Abhdguzq567, RUE, Izbenol720, RUE, Sitting Bhxgksnka13, RUE, Xxjiqts11, RUE, Sitting Heart Rate61, R Brachial Artery Height5 ft 11 in Dskipj530 lb BMI Vhacyrspkz57.57 kg/m2 BSA Calculated2.16 Tobacco Useb) No Fall [...] (more content not included)...NormalUH [facility] Tobacco Screening.on 99-32-4955Yyxh risk assessmentc) Not medically indicated- [facility] [employer] DO Work Phone: Tobacco use status CPHSb) NoM-[facility]- [employer] DO Work Phone: Bilirubin, Directon [phone]<0.2NormalNortcopper queen community hospitaln [facility] SpecialistComment on above:Result Comment: Reference range change 03/03/2017. Prior reference range 0.1-0.3 mg/dL.Performed By: #### CBCAD, MG, URIC, LIPD, PHOS, CMP, DBIL #### [facility] [address], [place] [id number] Blood Count with Auto Diffon 13-23-3629Jdmzbvelj (Bld) [#/Vol]0.06 10*3/uLNormal0.00-0.20[facility] SpecialistComment on above:Performed By: #### CBCAD, MG, URIC, LIPD, PHOS, CMP, DBIL #### [facility] [address] [place] [id number]/100 WBC (Bld)0.7 %NormalNortKettering Health SpecialistComment on above:Performed By: #### CBCAD, MG, URIC, LIPD, PHOS, CMP, DBIL #### [facility] [address] [place], [place] [id number] (Bld) [#/Vol]0.13 10*3/uLNormal0.02-0.50NoOhioHealth SpecialistComment on above:Performed By: #### CBCAD, MG, URIC, LIPD, PHOS, CMP, DBIL #### [facility] [address], [place] [id number]/100 WBC (Bld)1.6 %NormalNoOhioHealth SpecialistComment on above:Performed By: #### CBCAD, MG, URIC, LIPD, PHOS, CMP, DBIL #### [facility] [address], [place] [id number] distribution width (RBC) [Ratio]14.9 %Normal 11.0-15.0[facility] SpecialistComment on above:Performed By: #### CBCAD, MG, URIC, LIPD, PHOS, CMP, DBIL #### [facility] [address], [place] [id number] (Bld) [Volume fraction]51.2 %High38.5-50.0[facility] SpecialistComment on above:Performed By: #### CBCAD, MG, URIC, LIPD, PHOS, CMP, DBIL #### [facility] [address], [place] [id number] (Bld) [Mass/Vol]16.0 g/zDOutdue45.0-17.1[facility] SpecialistComment on above:Performed By: #### CBCAD, MG, URIC, LIPD, PHOS, CMP, DBIL #### [facility] [address], [place] [id number] (Bld) [#/Vol]0.9 10*3/uLNormal0.9-3.9NoOhioHealth SpecialistComment on above:Performed By: #### CBCAD, MG, URIC, LIPD, PHOS, CMP, DBIL #### [facility] [address], [place] [id number]/100 WBC (Bld)10.7 %NormalMedina Hospital SpecialistComment on above:Performed By: #### CBCAD, MG, URIC, LIPD, PHOS, CMP, DBIL #### [facility] [address], [place] [id number] (RBC) [Entitic mass]28.9 roYyuqjf17.0-33.0NoOhioHealth SpecialistComment on above:Performed By: #### CBCAD, MG, URIC, LIPD, PHOS, CMP, DBIL #### [facility] [address], [place] [id number] (RBC) [Mass/Vol]31.3 g/dLLow32.0-36.0NoOhioHealth SpecialistComment on above:Performed By: #### CBCAD, MG, URIC, LIPD, PHOS, CMP, DBIL #### [facility] [address], [place] [id number] (RBC) [Entitic vol]92 jAUklpuh31-037Huynpaql [facility] SpecialistComment on above:Performed By: #### CBCAD, MG, URIC, LIPD, PHOS, CMP, DBIL #### [facility] [address], [place] [id number] (Bld) [#/Vol]0.7 10*3/uLNormal0.2-0.9NoOhioHealth SpecialistComment on above:Performed By: #### CBCAD, MG, URIC, LIPD, PHOS, CMP, DBIL #### [facility] [address], [place] [id number]/100 WBC (Bld)8.1 %NormalMedina Hospital SpecialistComment on above:Performed By: #### CBCAD, MG, URIC, LIPD, PHOS, CMP, DBIL #### [facility] [address], [place] [id number] (Bld) [#/Vol]6.4 10*3/uLNormal1.5-7.8[facility] SpecialistComment on above:Performed By: #### CBCAD, MG, URIC, LIPD, PHOS, CMP, DBIL #### [facility] [address], [place] [id number]/100 WBC (Bld)78.5 %NormalNoOhioHealth SpecialistComment on above:Performed By: #### CBCAD, MG, URIC, LIPD, PHOS, CMP, DBIL #### [facility] [address], [place] [id number] mean volume (Bld) [Entitic vol]11.20 fLNormal 7.50-12.50NoOhioHealth SpecialistComment on above:Performed By: #### CBCAD, MG, URIC, LIPD, PHOS, CMP, DBIL #### [facility] [address], [place] [id number] (Bld) [#/Vol]295 10*3/sMXufdyq654-375Zhsvovqw [facility] SpecialistComment on above:Performed By: #### CBCAD, MG, URIC, LIPD, PHOS, CMP, DBIL #### [facility] [address], [place] [id number] (Bld) [#/Vol]5.54 10*6/uLNormal4.20-5.80NoOhioHealth SpecialistComment on above:Performed By: #### CBCAD, MG, URIC, LIPD, PHOS, CMP, DBIL #### [facility] [address], [place] [id number]-RR36.0 tPTjxj97.0-50.0NoOhioHealth Specialist Comment on above:Performed By: #### CBCAD, MG, URIC, LIPD, PHOS, CMP, DBIL #### [facility] [address], [place] [id number] (Bld) [#/Vol]8.2 10*3/uLNormal3.8-11.0NoOhioHealth SpecialistComment on above:Performed By: #### CBCAD, MG, URIC, LIPD, PHOS, CMP, DBIL #### [facility] [address], [place] [id number] Metabolic Panelon 84-97-2852Fsifjvk [Mass/Vol] 4.9 g/dLNormal3.6-5.1N[facility]herFairfield [facility] Center SpecialistComment on above:Performed By: #### CBCAD, MG, URIC, LIPD, PHOS, CMP, DBIL #### [facility] [address], [place] [id number]/Globulin [Mass ratio]2.5 {ratio}Normal1.0-2.5NoOhioHealth SpecialistComment on above:Performed By: #### CBCAD, MG, URIC, LIPD, PHOS, CMP, DBIL #### [facility] [address], [place] [id number] [Catalytic activity/Vol]86 U/DIpygbs30-832Jbmhwpzt [facility] SpecialistComment on above:Performed By: #### CBCAD, MG, URIC, LIPD, PHOS, CMP, DBIL #### [facility] [address], [place] [id number] [Catalytic activity/Vol]33 U/LNormal9-46NoOhioHealth SpecialistComment on above:Result Comment: 03/17/2021 Female reference range changed.Performed By: #### CBCAD, MG, URIC, LIPD, PHOS, CMP, DBIL #### [facility] [address], [place] [id number] gap [Moles/Vol]18 mmol/KHlngoc83-65Snczdfzf [facility] SpecialistComment on above:Result Comment: Effective 04/22/2019 reference range changed.Performed By: #### CBCAD, MG, URIC, LIPD, PHOS, CMP, DBIL #### [facility] [address], [place] [id number] [Catalytic activity/Vol]27 U/TKebqys35-20Choeiewr [facility] SpecialistComment on above:Performed By: #### CBCAD, MG, URIC, LIPD, PHOS, CMP, DBIL #### [facility] [address], [place] [id number] [Mass/Vol]0.38 mg/dLNormal0.30-1.20NortKettering Health SpecialistComment on above:Performed By: #### CBCAD, MG, URIC, LIPD, PHOS, CMP, DBIL #### [facility] [address], [place] [id number]/CREA12 RatioNormal6-22NortMercy Health St. [facility] Tumbler Machine Operator Helper Comment on above:Performed By: #### CBCAD, MG, URIC, LIPD, PHOS, CMP, DBIL #### [facility] [address], [place] [id number] [Mass/Vol]10.3 mg/dLHigh8.6-10.2[facility] SpecialistComment on above:Performed By: #### CBCAD, MG, URIC, LIPD, PHOS, CMP, DBIL #### [facility] [address], [place] [id number] [Moles/Vol]105 mmol/KTsvgdr43-504Mrhyfcsr [facility] SpecialistComment on above:Performed By: #### CBCAD, MG, URIC, LIPD, PHOS, CMP, DBIL #### [facility] [address], [place] [id number] [Moles/Vol]23 mmol/NMgsssb66-87Fduwzbxj [facility] SpecialistComment on above:Performed By: #### CBCAD, MG, URIC, LIPD, PHOS, CMP, DBIL #### [facility] [address], [place] [id number] [Mass/Vol]1.2 mg/dLNormal0.7-1.4NortKettering Health SpecialistComment on above:Performed By: #### CBCAD, MG, URIC, LIPD, PHOS, CMP, DBIL #### [facility] [address], [place] [id number] mL/min/1.41d4Hvyxpn>60NortKettering Health SpecialistComment on above:Performed By: #### CBCAD, MG, URIC, LIPD, PHOS, CMP, DBIL #### [facility] [address], [place] [id number] mL/min/1.12k5Pyfzno>60Nortcopper queen community hospitaln [facility] SpecialistComment on above:Performed By: #### CBCAD, MG, URIC, LIPD, PHOS, CMP, DBIL #### [facility] [address], [place] [id number] (S) [Mass/Vol]2.0 g/dLNormal1.9-3.7NoOhioHealth SpecialistComment on above:Performed By: #### CBCAD, MG, URIC, LIPD, PHOS, CMP, DBIL #### [facility] [address], [place] [id number] [Mass/Vol]125 mg/yEZokn10-68Sbhyqnfb [facility] SpecialistComment on above:Result Comment: For FASTING Glucose --- ADA reference ranges: Normal 65-99 mg/dl Prediabetes 100-125 Diabetes >/= 126Performed By: #### CBCAD, MG, URIC, LIPD, PHOS, CMP, DBIL #### [facility] [address], [place] [id number] [Moles/Vol]4.7 mmol/LNormal3.5-5.5NortKettering Health SpecialistComment on above:Performed By: #### CBCAD, MG, URIC, LIPD, PHOS, CMP, DBIL #### [facility] [address], [place] [id number] [Mass/Vol]6.9 g/dLNormal6.1-8.1[facility]herFair[facility] SpecialistComment on above:Performed By: #### CBCAD, MG, URIC, LIPD, PHOS, CMP, DBIL #### [facility] [address], [place] [id number] [Moles/Vol]141 mmol/TSsqkxs923-132Otdfdayl [facility] SpecialistComment on above:Performed By: #### CBCAD, MG, URIC, LIPD, PHOS, CMP, DBIL #### [facility] [address], [place] [id number] nitrogen [Mass/Vol]14 mg/dLNormal7-25NoOhioHealth SpecialistComment on above:Performed By: #### CBCAD, MG, URIC, LIPD, PHOS, CMP, DBIL #### [facility] [address], [place] [id number] Panelon 18-07-9375Eduwougjixn [Mass/Vol]123 mg/dLLow 125-200NoEast Liverpool City HospitalComaleda [facility] on above:Result Comment: Low risk < 200mg/dL Borderline risk 201-239 mg/dl High risk > or equal to 240Performed By: #### CBCAD, MG, URIC, LIPD, PHOS, CMP, DBIL #### [facility] [address], [place] [id number] in HDL [Mass/Vol]42 mg/dLNormal>40NoOhioHealth SpecialistComaleda e. lutz veterans affairs medical center on above:Result Comment: High Cardiovascular Risk HDL <40 mg/dL Low Cardiovascular Risk HDL > or equal to 60 mg/dlPerformed By: #### CBCAD, MG, URIC, LIPD, PHOS, CMP, DBIL #### [facility] [address], [place] [id number] in LDL [Mass/Vol]58 mg/dLNormalNoOhioHealth SpecialistComaleda e. lutz [facility] on above:Result Comment: LDL ATP III CLASSIFICATION LDL less than 100 mg/dl Optimal LDL 100-129 mg/dl Near or above optimal LDL 130-159 Borderline high LDL 160-189 High LDL greater than 189 mg/dl Very HighPerformed By: #### CBCAD, MG, URIC, LIPD, PHOS, CMP, DBIL #### [facility] [address], [place] [id number] in VLDL [Mass/Vol]23 mg/dLNormMiami Valley Hospital SpecialistComment on above:Performed By: #### CBCAD, MG, URIC, LIPD, PHOS, CMP, DBIL #### [facility] [address], [place] [id number].total/Cholesterol in HDL [Mass ratio]3 {ratio} NormalNoOhioHealth SpecialistComment on above:Performed By: #### CBCAD, MG, URIC, LIPD, PHOS, CMP, DBIL #### [facility] [address], [place] [id number] [Mass/Vol]113 mg/wADhycoc02-883Xzmujylh [facility] SpecialistComment on above:Result Comment: TRIG ATPIII CLASSIFICATIONS TRIG less than 150 mg/dl Normal TRIG 150-199 mg/dl Borderline High TRIG 200-500 mg/dl High TRIG greather than 500 mg/dl Very HighPerformed By: #### CBCAD, MG, URIC, LIPD, PHOS, CMP, DBIL #### [facility] [address], [place] [id number] 60-63-9773Djzmocnzw [Mass/Vol]1.9 mg/dLNormal 1.5-2.3NoOhioHealth SpecialistComment on above:Performed By: #### CBCAD, MG, URIC, LIPD, PHOS, CMP, DBIL #### [facility] [address], [place] [id number] 83-40-6361Amjqbqcqv [Mass/Vol]4.1 mg/dLNormal 2.2-4.4NoOhioHealth SpecialistComment on above:Performed By: #### CBCAD, MG, URIC, LIPD, PHOS, CMP, DBIL #### [facility] [address], [place] [id number] Acidon 85-85-0451COSW6.5 mg/dLNormal4.0-8.0NoOhioHealth SpecialistComment on above:Result Comment: Reference range change 03/03/2017. Prior reference range F 2.4-5.7mg/dL. M 3.4-7.0 mg/dL.Performed By: #### CBCAD, MG, URIC, LIPD, PHOS, CMP, DBIL #### [facility] [address] [place], [place] [id number] CHEST 2 Son [id number] CHEST 2 [facility]ni[facility] Department of Radiology [address] [place] [id number] Patient Name: VISHAL DUKE : 1960 Sex: M Age: Race: White Pt. Location: [facility] Patient Status: D Ordered Date: 12/24/2020 3:50:00 PM Completed Date: 12/24/2020 03:48 PM Requesting Provider: ZULY VERDUZCO Attending Provider: Report Copy To: Signs & Symptoms: U07.1 COVID-19 I10 History: Solange Comments: covid Exam: [facility] CHEST 2 [facility] CHEST 2 [facility] 12/24/2020 3:48 PM CLINICAL INDICATIONS: U07.1 COVID-19 [...] process. Electronically signed: Giovana Garrido. Transcribed by: [email or web address], User Resident: Electronically Signed by: GIOVANA Seo GARRIDO @ 12/25/2020 12:24 PMNormalThe Clermont County HospitalComment on above:Order Comment: No: Do not add to previous draw CV'D BY [facility] AT 1240Glucose Poct Glucometerson 20-96-3928Zlsqqxc1Egt8: Cleaned MeterNoSt. Mary's Medical Center, Ironton CampusComment on above:Result Comment: PERFORMED BY: [place] [id number] PATHOLOGIST [address] GRADER OPERATOR SHYANN OLIVIER M.D.Performed By: #### BMP, HS TROP, CBC, PT, PTT, BNP #### [place] [address] USAGlucose [Mass/Vol]147 mg/dLUpper Valley Medical CenterComment on above:Result Comment: Random Glucose Reference Range is dependent on time and content of last meal. Glucose of more than 200 mg/dL in a nonstressed, ambulatory subject supports the diagnosis of Diabetes Mellitus.Performed By: #### BMP, HS TROP, CBC, PT, PTT, BNP #### [address] [address] USAGlucose [Mass/Vol]107 mg/dLUpper Valley Medical CenterComment on above:Result Comment: Random Glucose Reference Range is dependent on time and content of last meal. Glucose of more than 200 mg/dL in a nonstressed, ambulatory subject supports the diagnosis of Diabetes Mellitus. PERFORMED BY: [address] GRADER OPERATOR SHYANN OLIVIER M.D.Performed By: #### BMP, HS TROP, CBC, PT, PTT, BNP #### [address] [address] USAXR chest 2V*on 84-33-0545PH chest 2V*[facility] Main [address] [address] XRay Report Signed Patient: Vishal Duke MR#: [id number] : 1960 Acct:[id number] Age/Sex: 59 / M ADM Date: 12/08/20 Loc: Room: [address] [place] [address] Type: ADM IN Attending Dr: Leonardo Storey [...] Farah Jr., M.D.12/12/2020 9:15 AM Dictation Location: [place] [address] Transcribed By: [facility] 12/12/20 09 Dictated By: Faraz Farah Jr, MD 12/12/20 0909 Signed By: 12/12/20 0915NoSt. Mary's Medical Center, Ironton CampusBasic Metabolic Panelon 98-15-2736Uucfkki [Mass/Vol]8.9 mg/dLNormal8.2-10.2FMercy Health St. Vincent Medical CenterComment on above:Performed By: #### BMP, HS TROP, CBC, PT, PTT, BNP #### [facility] [address] [place] [address] USAChloride [Moles/Vol]105 mmol/WPlayag65-210RmiswoksxGeorgetown Behavioral HospitalComment on above:Performed By: #### BMP, HS TROP, CBC, PT, PTT, BNP #### [facility] [address] [place] [address] USACO2 [Moles/Vol]22.1 mmol/TOflgxe88.0-30.0Ge[facility] Behavioral HospitalComment on above:Performed By: #### BMP, HS TROP, CBC, PT, PTT, BNP #### [place] [address] USACreatinine [Mass/Vol]1.08 mg/dLNormal0.64-1.27Georgetown Behavioral HospitalComment on above:Performed By: #### BMP, HS TROP, CBC, PT, PTT, BNP #### [place] [address] USACreatinine Clr Calc Icpqasoz62.44Upper Valley Medical CenterComment on above:Result Comment: PERFORMED BY: [place] [address]ADER OPERATOR SHYANN OLIVIER M.D.Performed By: #### BMP, HS TROP, CBC, PT, PTT, BNP #### [place] [address] USAEstimated GFR ( Nata> 60Upper Valley Medical CenterComment on above:Result Comment: GFR estimated reference range: According to KDOQI guidelines, <60 ml/min/1.73m2 is sufficient to diagnose a patient with chronic kidney disease.Performed By: #### BMP, HS TROP, CBC, PT, PTT, BNP #### [place] [address] USAEstimated GFR (Non- Am> 60Upper Valley Medical CenterComment on above:Performed By: #### BMP, HS TROP, CBC, PT, PTT, BNP #### [place] [address] USAGlucose [Mass/Vol]138 mg/eVBppv57-649HdcjnsocfGeorgetown Behavioral HospitalComment on above:Result Comment: Random Glucose Reference Range is dependent on time and content of last meal. Glucose of more than 200 mg/dL in a nonstressed, ambulatory subject supports the diagnosis of Diabetes Mellitus. ADA recommended reference rangePerformed By: #### BMP, HS TROP, CBC, PT, PTT, BNP #### [place] [address] USAPotassium [Moles/Vol]4.2 mmol/LNormal3.5-5.1FMercy Health St. Vincent Medical CenterComment on above:Performed By: #### BMP, HS TROP, CBC, PT, PTT, BNP #### [place] [address] USASodium [Moles/Vol]138 mmol/TLdqrfv660-829HmalkswzmGeorgetown Behavioral HospitalComment on above:Performed By: #### BMP, HS TROP, CBC, PT, PTT, BNP #### [place] [address] USAUrea nitrogen [Mass/Vol]11 mg/dLNormal9-23Georgetown Behavioral HospitalComment on above:Performed By: #### BMP, HS TROP, CBC, PT, PTT, BNP #### [place] [address] USAComplete Blood Count Auto Diffon 00-45-8239Wxckljenw (Bld) [#/Vol]0.1 10*3/uLNormal0.0-0.2FMercy Health St. Vincent Medical CenterComment on above:Result Comment: PERFORMED BY: [place] [address] GRADER OPERATOR SHYANN OLIVIER M.D.Performed By: #### BMP, HS TROP, CBC, PT, PTT, BNP #### [place] [address] USABasophils/100 WBC (Bld)0.7 %Normal.Ge[facility] Behavioral HospitalComment on above:Performed By: #### BMP, HS TROP, CBC, PT, PTT, BNP #### [place] [address] USAEosinophils (Bld) [#/Vol]0.1 10*3/uLNormal0.0-0.45 [facility] HospitalComment on above:Performed By: #### BMP, HS TROP, CBC, PT, PTT, BNP #### [place] [address] USAEosinophils/100 WBC (Bld)1.3 %Normal.Ge[facility] Behavioral HospitalComment on above:Performed By: #### BMP, HS TROP, CBC, PT, PTT, BNP #### [place] [address] USAErythrocyte distribution width (RBC) [Ratio]15.2 %High 12.0-14.8Ge[facility] Behavioral HospitalComment on above:Performed By: #### BMP, HS TROP, CBC, PT, PTT, BNP #### [place] [address] USAHematocrit (Bld) [Volume fraction]38.0 %Low38.8-50.0 [facility] Behavioral HospitalComment on above:Performed By: #### BMP, HS TROP, CBC, PT, PTT, BNP #### [place] [address] USAHemoglobin (Bld) [Mass/Vol]13.0 g/bLSwxioj96.0-17.0 [facility] HospitalComment on above:Performed By: #### BMP, HS TROP, CBC, PT, PTT, BNP #### [place] [address] USALymphocytes (Bld) [#/Vol]0.7 10*3/uLLow1.00-4.8Ge[facility]al HospitalComment on above:Performed By: #### BMP, HS TROP, CBC, PT, PTT, BNP #### [place] [address] USALymphocytes/100 WBC (Bld)7.7 %Normal.Ge[facility] Behavioral HospitalComment on above:Performed By: #### BMP, HS TROP, CBC, PT, PTT, BNP #### [place] [address] USAMCH (RBC) [Entitic mass]31.5 jnRmaqrt99.5-35.2FMercy Health St. Vincent Medical CenterComment on above:Performed By: #### BMP, HS TROP, CBC, PT, PTT, BNP #### [place] [address] USAMCV (RBC) [Entitic vol]91.7 gBTnzpvc63.5-101Ge[facility] Behavioral HospitalComment on above:Performed By: #### BMP, HS TROP, CBC, PT, PTT, BNP #### [facility] [address] [place] [address] USAMean Corpuscular HGB Conc34.3 g/aDJlzizw42.5-35.6FMercy Health St. Vincent Medical CenterComment on above:Performed By: #### BMP, HS TROP, CBC, PT, PTT, BNP #### [facility] [address] [place] [address] USAMonocytes (Bld) [#/Vol]0.9 10*3/uLHigh0.0-0.8Ge[facility] HospitalComment on above:Performed By: #### BMP, HS TROP, CBC, PT, PTT, BNP #### [facility] [address] [place] [address] USAMonocytes/100 WBC (Bld)9.4 %Normal.[facility] Behavioral HospitalComment on above:Performed By: #### BMP, HS TROP, CBC, PT, PTT, BNP #### [place] [address] USANeutrophils (Bld) [#/Vol]7.5 10*3/uLNormal1.8-7.7FMercy Health St. Vincent Medical CenterComment on above:Performed By: #### BMP, HS TROP, CBC, PT, PTT, BNP #### [place] [address] USANeutrophils/100 WBC (Bld)80.9 %Normal.Ge[facility] Behavioral HospitalComment on above:Performed By: #### BMP, HS TROP, CBC, PT, PTT, BNP #### [facility] [address] [place] [address] USANucleated RBC/100 WBC (Bld) [Ratio]0.0 %Normal0-0.5 [facility] Behavioral HospitalComment on above:Performed By: #### BMP, HS TROP, CBC, PT, PTT, BNP #### [place] [address] USAPlatelet mean volume (Bld) [Entitic vol]7.6 fLNormal 6.6-10.1FMercy Health St. Vincent Medical CenterComment on above:Performed By: #### BMP, HS TROP, CBC, PT, PTT, BNP #### [place] [address] USAPlatelets (Bld) [#/Vol]385 10*3/kVAfoztz628-853XvzxhzpovGeorgetown Behavioral HospitalComment on above:Performed By: #### BMP, HS TROP, CBC, PT, PTT, BNP #### [place] [address] USARBC (Bld) [#/Vol]4.14 10*6/uLNormal3.90-5.60[facility] HospitalComment on above:Performed By: #### BMP, HS TROP, CBC, PT, PTT, BNP #### [place] [address] USAWBC (Bld) [#/Vol]9.3 10*3/uLNormal4.5-11.0[facility] HospitalComment on above:Performed By: #### BMP, HS TROP, CBC, PT, PTT, BNP #### [place] [address] USAGlucose Poct Glucometerson 36-25-8702Rwemxbw [Mass/Vol]129 mg/dLNoSt. Mary's Medical Center, Ironton CampusComment on above:Result Comment: Random Glucose Reference Range is dependent on time and content of last meal. Glucose of more than 200 mg/dL in a nonstressed, ambulatory subject supports the diagnosis of Diabetes Mellitus. PERFORMED BY: [place] [address]ADER OPERATOR SHYANN OLIVIER M.D.Performed By: #### BMP, HS TROP, CBC, PT, PTT, BNP #### [place] [address] USAPartial Thromboplastin Timeon 81-12-3421oXQT Coag (Bld) [Time]32.7 pGnfjet61.1-36.5FMercy Health St. Vincent Medical CenterComment on above: Result Comment: PERFORMED BY: [place] [address] GRADER OPERATOR SHYANN OLIVIER M.D.Performed By: #### BMP, HS TROP, CBC, PT, PTT, BNP #### [facility] [address] [place], [place] [address] USAProthrombin Time INRon 30-97-7167CXA Coag (PPP) [Relative time]1.2 {INR}NormalGeorgetown Behavioral HospitalComment on above:Result Comment: INR Therapeutic Range A) [...] HS TROP, CBC, PT, PTT, BNP #### [facility] [address] [place], [place] [address] USAPT Coag (PPP) [Time]13.8 sHigh9.0-12.9Ge[facility] Behavioral HospitalComment on above:Performed By: #### BMP, HS TROP, CBC, PT, PTT, BNP #### [place] [id number] USAXR chest 1V portableon 63-66-8734AV chest 1V portable [facility] Main [place] [id number] XRay Report Signed Patient: Vishal Duke MR#: [id number] : 1960 Acct:[id number] Age/Sex: 59 / M ADM Date: 12/08/20 Loc: Room: [address] [place] [address] Type: ADM IN Attending Dr: Leonardo Storey [...] Biju Ag M.D.12/11/2020 12:40 PM Dictation Location: [place] [address] Transcribed By: [facility] 12/11/20 1240 Dictated By: Biju Ag MD 12/11/20 1236 Signed By: 12/11/20 1240NormBarberton Citizens HospitalComplete Blood Count Auto Diffon 13-32-4755Ouheyacuq (Bld) [#/Vol]0.0 10*3/uLNormal0.0-0.2FMercy Health St. Vincent Medical CenterComment on above:Result Comment: PERFORMED BY: [place] [address] GRADER OPERATOR SHYANN OLIVIER M.D.Performed By: #### BMP, HS TROP, CBC, PT, PTT, BNP #### [facility] [address] [place] [address] USABasophils/100 WBC (Bld)0.3 %Normal.[facility] Behavioral HospitalComment on above:Performed By: #### BMP, HS TROP, CBC, PT, PTT, BNP #### [facility] [address] [place] [address] USAEosinophils (Bld) [#/Vol]0.1 10*3/uLNormal0.0-0.45 [facility] HospitalComment on above:Performed By: #### BMP, HS TROP, CBC, PT, PTT, BNP #### [facility] [address] [place] [address] USAEosinophils/100 WBC (Bld)0.5 %Normal.[facility] Behavioral HospitalComment on above:Performed By: #### BMP, HS TROP, CBC, PT, PTT, BNP #### [place] [address] USAErythrocyte distribution width (RBC) [Ratio]15.1 %High 12.0-14.8Ge[facility] Behavioral HospitalComment on above:Performed By: #### BMP, HS TROP, CBC, PT, PTT, BNP #### [place] [address] USAHematocrit (Bld) [Volume fraction]39.5 %Otxwxv41.8-50.0 [facility] HospitalComment on above:Performed By: #### BMP, HS TROP, CBC, PT, PTT, BNP #### [place] [address] USAHemoglobin (Bld) [Mass/Vol]13.1 g/eXCmuzdf45.0-17.0 [facility] HospitalComment on above:Performed By: #### BMP, HS TROP, CBC, PT, PTT, BNP #### [place] [address] USALymphocytes (Bld) [#/Vol]0.5 10*3/uLLow1.00-4.8[facility] HospitalComment on above:Performed By: #### BMP, HS TROP, CBC, PT, PTT, BNP #### [place] [address] USALymphocytes/100 WBC (Bld)4.0 %Normal.[facility] Behavioral HospitalComment on above:Performed By: #### BMP, HS TROP, CBC, PT, PTT, BNP #### [place] [address] USAMCH (RBC) [Entitic mass]31.2 axWpnglo97.5-35.2FMercy Health St. Vincent Medical CenterComment on above:Performed By: #### BMP, HS TROP, CBC, PT, PTT, BNP #### [facility] [address] [place] [address] USAMCV (RBC) [Entitic vol]94.1 tPWoizvc47.5-101Ge[facility] HospitalComment on above:Performed By: #### BMP, HS TROP, CBC, PT, PTT, BNP #### [facility] [address] [place] [address] USAMean Corpuscular HGB Conc33.2 g/cDCdnxfv53.5-35.6FMercy Health St. Vincent Medical CenterComment on above:Performed By: #### BMP, HS TROP, CBC, PT, PTT, BNP #### [facility] [address] [place] [address] USAMonocytes (Bld) [#/Vol]0.8 10*3/uLNormal0.0-0.8[facility]al HospitalComaleda e. lutz [facility] affairs medical center on above:Performed By: #### BMP, HS TROP, CBC, PT, PTT, BNP #### [facility] [address] [place] [address] USAMonocytes/100 WBC (Bld)6.6 %Normal.[facility]al HospitalComaleda e. lutz veterans affairs medical center on above:Performed By: #### BMP, HS TROP, CBC, PT, PTT, BNP #### [place] [address] USANeutrophils (Bld) [#/Vol]10.5 10*3/uLHigh1.8-7.7FMercy Health St. Vincent Medical CenterComaleda e. l[facility] veterans affairs medical center on above:Performed By: #### BMP, HS TROP, CBC, PT, PTT, BNP #### [facility] [address] [place] [address] USANeutrophils/100 WBC (Bld)88.6 %Normal.[facility] HospitalComaleda e. lutz veterans affairs medical center on above:Performed By: #### BMP, HS TROP, CBC, PT, PTT, BNP #### [facility] [address] [place] [address] USANucleated RBC/100 WBC (Bld) [Ratio]0.1 %Normal0-0.5 [facility] HospitalComment on above:Performed By: #### BMP, HS TROP, CBC, PT, PTT, BNP #### [facility] [address] [place] [address] USAPlatelet mean volume (Bld) [Entitic vol]8.1 fLNormal 6.6-10.1FMercy Health St. Vincent Medical CenterComment on above:Performed By: #### BMP, HS TROP, CBC, PT, PTT, BNP #### [place] [address] USAPlatelets (Bld) [#/Vol]403 10*3/eNNpyftv606-251MtxbrtzhrGeorgetown Behavioral HospitalComment on above:Performed By: #### BMP, HS TROP, CBC, PT, PTT, BNP #### [place] [address] USARBC (Bld) [#/Vol]4.20 10*6/uLNormal3.90-5.60[facility] HospitalComment on above:Performed By: #### BMP, HS TROP, CBC, PT, PTT, BNP #### [place] [address] USAWBC (Bld) [#/Vol]11.9 10*3/uLHigh4.5-11.0[facility] HospitalComment on above:Performed By: #### BMP, HS TROP, CBC, PT, PTT, BNP #### [place] [address] USAComprehensive Metabolic Panelon [id number] [Mass/Vol]3.1 g/dLLow3.2-5.5FMercy Health St. Vincent Medical CenterComment on above: Result Comment: --- 12/10/20 1241 --- Alb previously reported as: 2.8 L gm/dLPerformed By: #### BMP, HS TROP, CBC, PT, PTT, BNP #### [place] [address] USAAlbumin/Globulin [Mass ratio]0.9 {ratio}[facility] CenterComment on above:Result Comment: --- 12/10/201240 --- A/G Ratio previously reported as: 0.8Performed By: #### BMP, HS TROP, CBC, PT, PTT, BNP #### [place] [address] USAALP [Catalytic activity/Vol]98 U/ILzrb84-51HdccpjwaiGeorgetown Behavioral HospitalComment on above:Result Comment: --- 12/10/201241 --- Alk Phos previously reported as: 91 U/LPerformed By: #### BMP, HS TROP, CBC, PT, PTT, BNP #### [facility] [address] [place] [address] USAALT [Catalytic activity/Vol]123 U/BJjip75-28Twnkvwubf79 Hall StreetComment on above:Result Comment: --- 12/10/201241 --- ALT previously reported as: 116 H U/LPerformed By: #### BMP, HS TROP, CBC, PT, PTT, BNP #### [facility] [address] [place] [address] USAAST [Catalytic activity/Vol]91 U/AJngq43-64YcbwsldfyGeorgetown Behavioral HospitalComment on above:Result Comment: --- 12/10/201241 --- AST previously reported as: 82 H U/LPerformed By: #### BMP, HS TROP, CBC, PT, PTT, BNP #### [facility] [address] [place] [address] USABilirubin [Mass/Vol]0.7 mg/dLNormal0.3-1.2FMercy Health St. Vincent Medical CenterComment on above:Result Comment: --- 12/10/201240 --- TOTAL BILI previously reported as: 0.9 mg/dLPerformed By: #### BMP, HS TROP, CBC, PT, PTT, BNP #### [place] [address] USACalcium [Mass/Vol]9.0 mg/dLNormal8.2-10.2FMercy Health St. Vincent Medical CenterComment on above:Result Comment: --- 08/26/21 1241 --- CA previously reported as: 8.2 mg/dLPerformed By: #### BMP, HS TROP, CBC, PT, PTT, BNP #### [facility] [address] [place] [address] USAChloride [Moles/Vol]99 mmol/BTcehzh02-846DdkoxpsjtGeorgetown Behavioral HospitalComment on above:Result Comment: --- 12/10/201240 --- CL previously reported as: 97 mmol/LPerformed By: #### BMP, HS TROP, CBC, PT, PTT, BNP #### [place] [address] USACO2 [Moles/Vol]20.4 mmol/LLow22.0-30.0Georgetown Behavioral HospitalComment on above:Result Comment: --- 12/10/201240 --- CO2 previously reported as: 21.7 L mmol/LPerformed By: #### BMP, HS TROP, CBC, PT, PTT, BNP #### [place] [address] USACreatinine [Mass/Vol]1.09 mg/dLNormal0.64-1.27Georgetown Behavioral HospitalComment on above:Result Comment: --- 12/10/201239 --- Creat previously reported as: 1.01 mg/dLPerformed By: #### BMP, HS TROP, CBC, PT, PTT, BNP #### [place] [address] USACreatinine Clr Calc Ekgkugsy89.72NoSt. Mary's Medical Center, Ironton CampusComment on above:Result Comment: --- 12/10/201239 --- Creat Calc PHA previously reported as: 83.87 PERFORMED BY: [place] [address]ADER OPERATOR SHYANN OLIVIER M.D.Performed By: #### BMP, HS TROP, CBC, PT, PTT, BNP #### [facility] [address] [place] [address] USAEstimated GFR ( Nata> 60NoSt. Mary's Medical Center, Ironton CampusComment on above:Result Comment: --- 12/10/20 1227 --- GFReAA previously reported as: > 60 mL/Min GFR estimated reference range: According to KDOQI guidelines, <60 ml/min/1.73m2 is sufficient to diagnose a patient with chronic kidney disease.Performed By: #### BMP, HS TROP, CBC, PT, PTT, BNP #### [facility] [address] [place] [address] USAEstimated GFR (Non- Am> 60NoSt. Mary's Medical Center, Ironton CampusComment on above:Result Comment: --- 12/10/20 1227 --- GFRe previously reported as: > 60 mL/MinPerformed By: #### BMP, HS TROP, CBC, PT, PTT, BNP #### [facility] [address] [place] [address] USAGlobulin (S) [Mass/Vol]3.3 g/dLNoSt. Mary's Medical Center, Ironton CampusComment on above:Result Comment: --- 12/10/201226 --- Glob previously reported as: 3.3 gm/dLPerformed By: #### BMP, HS TROP, CBC, PT, PTT, BNP #### [facility] [address] [place] [id number] USAGlucose [Mass/Vol]160 mg/hVEmsc37-116Uiwtwilwo64 Cervantes StreetComment on above:Result Comment: Results called at [...] HS TROP, CBC, PT, PTT, BNP #### [facility] [address] [place] [address] USAPotassium [Moles/Vol]4.1 mmol/LNormal3.5-5.1FMercy Health St. Vincent Medical CenterComment on above:Result Comment: --- 12/10/20 1241 --- K previously reported as: 3.8 mmol/LPerformed By: #### BMP, HS TROP, CBC, PT, PTT, BNP #### [facility] [address] [place] [address] USAProtein [Mass/Vol]6.4 g/dLNormal6.1-7.9Georgetown Behavioral HospitalComment on above:Result Comment: --- 12/10/20 1241 --- TP previously reported as: 6.1 gm/dLPerformed By: #### BMP, HS TROP, CBC, PT, PTT, BNP #### [facility] [address] [place] [address] USASodium [Moles/Vol]134 mmol/WVel318-363MoeeeteqiGeorgetown Behavioral HospitalComment on above:Result Comment: --- 12/10/20 124 --- NA previously reported as: 128 # L mmol/LPerformed By: #### BMP, HS TROP, CBC, PT, PTT, BNP #### [place] [address] USAUrea nitrogen [Mass/Vol]10 mg/dLNormal9-23Georgetown Behavioral HospitalComment on above:Result Comment: --- 12/10/20 1239 --- BUN previously reported as: 10 mg/dLPerformed By: #### BMP, HS TROP, CBC, PT, PTT, BNP #### [place] [id number] USAECG 12 lead ECGon [id number] 12 lead ECGUNIVERSITY [facility]ALS [facility] Main [place] [address] [place] [address] Electrocardiograph Report Signed Patient: Vishal Dkue MR#: [id number] : 1960 Acct:[id number] Age/Sex: 59 / M ADM Date: 12/08/20 Loc: Room: [address] [place] [address] Type: ADM IN Attending Dr: Leonardo Storey [...] Lateral leads Confirmed by [facility], KADEN ([id number]) on 12/10/2020 9:00:58 AM Referred By: Electronically Signed By:KADEN MOROCHO Transcribed By: MUS Dictated By: Kaden Enriquez MD, FACMai 12/10/20 0652 Signed By: 12/10/20 0901[facility] echo transthoracicon 37-78-6796RFN echo transthoracicUNIVERSITY HOSPITALS [facility] [place] [address] Echocardiogram Signed Patient: Vishal Duke MR#: [id number] : 1960 Acct:[id number] Age/Sex: 59 / M ADM Date: 12/08/20 Loc: Room: [address] [place] [address] Type: ADM IN Attending Dr: Leonardo Storey MD Ordering Provider: Leonardo Storey MD Date of Service: 12/09/20 [facility] echo transthoracic: torsades de pointes Copies to: MD Giovana Cheng DO Weight: 192 lb Performed By: Dominique Garza MARCELINA BSA: 2.1 m2 BP: 106/56 mmHg HR: [...] Fu DO 12/10/20 0816 Signed By: 12/10/20 1150Upper Valley Medical CenterGlucose Poct Glucometerson 00-38-1509Bivqkpv [Mass/Vol]157 mg/dLUpper Valley Medical CenterComment on above:Result Comment: Random Glucose Reference Range is dependent on time and content of last meal. Glucose of more than 200 mg/dL in a nonstressed, ambulatory subject supports the diagnosis of Diabetes Mellitus. PERFORMED BY: [facility] [place] [address] GRADER OPERATOR SHYANN OLIVIER M.D.Performed By: #### BMP, HS TROP, CBC, PT, PTT, BNP #### [place] [address] JRMPgndbjx0Yva9: Cleaned MeterUpper Valley Medical CenterComment on above:Result Comment: PERFORMED BY: [place] [address] GRADER OPERATOR SHYANN OLIVIER M.D.Performed By: #### BMP, HS TROP, CBC, PT, PTT, BNP #### [place] [address] USAGlucose [Mass/Vol]122 mg/dLUpper Valley Medical CenterComment on above:Result Comment: Random Glucose Reference Range is dependent on time and content of last meal. Glucose of more than 200 mg/dL in a nonstressed, ambulatory subject supports the diagnosis of Diabetes Mellitus.Performed By: #### BMP, HS TROP, CBC, PT, PTT, BNP #### [place] [address] USAGlucose [Mass/Vol]179 mg/dLUpper Valley Medical CenterComaleda e. lutz veterans affairs medical center on above:Result Comment: Random Glucose Reference Range is dependent on time and content of last meal. Glucose of more than 200 mg/dL in a nonstressed, ambulatory subject supports the diagnosis of Diabetes Mellitus. PERFORMED BY: [place] [address] GRADER OPERATOR SHYANN OLIVIER M.D.Performed By: #### BMP, HS TROP, CBC, PT, PTT, BNP #### [place] [address] USATroponin I High Sensitivityon 00-81-7136Ncxsxdjb I High Aqznruwlpuu9578 pg/mLOff scale [facility] center036 Martin StreetComment on above:Result Comment: PERFORMED BY: [place] [address] GRADER OPERATOR SHYANN OLIVIER M.D.Performed By: #### BMP, HS TROP, CBC, PT, PTT, BNP #### [facility] [address] [place] [address] USAXR chest 1V portableon 58-57-1163YF chest 1V portable [facility] Main [place] [address] [place], [place] [address] XRay Report Signed Patient: Vishal Duke MR#: [id number] : 1960 Acct:[id number] Age/Sex: 59 / M ADM Date: 12/08/20 Loc: Room: [address] [place] [address] Type: ADM IN Attending Dr: Leonardo Storey MD Ordering Provider: Daniel Prabhakar DO Date of Service: 12/10/20 XR/XR chest 1V portable: dyspnea, in-hospital CPA with ROSC Copies to: MD Daniel Cheng, DO XR chest 1V portable 12/09/2020 9:03 [...] Ajith Saleh M.D.12/10/2020 8:05 AM Dictation Location: [place] [address] Transcribed By: [facility] 12/10/20804 Dictated By: Ajith Saleh II, MD 12/10/20802 Signed By: 12/10/20804NoSt. Mary's Medical Center, Ironton CampusBasic Metabolic Panelon 39-77-1611Onktilj [Mass/Vol]9.6 mg/dLNormal8.2-10.2FMercy Health St. Vincent Medical CenterComment on above:Performed By: #### BMP, HS TROP, CBC, PT, PTT, BNP #### [facility] [address] [place], [place] [address] USAChloride [Moles/Vol]101 mmol/MWxafsg13-313OgvqpdyzmGeorgetown Behavioral HospitalComment on above:Performed By: #### BMP, HS TROP, CBC, PT, PTT, BNP #### [place] [address] USACO2 [Moles/Vol]23.3 mmol/TNaqtls27.0-30.0Georgetown Behavioral HospitalComment on above:Performed By: #### BMP, HS TROP, CBC, PT, PTT, BNP #### [place] [address] USACreatinine [Mass/Vol]0.97 mg/dLNormal0.64-1.27Georgetown Behavioral HospitalComment on above:Performed By: #### BMP, HS TROP, CBC, PT, PTT, BNP #### [place] [address] USACreatinine Clr Calc Qwdcgykp07.33NoSt. Mary's Medical Center, Ironton CampusComment on above:Result Comment: PERFORMED BY: [place] [address] GRADER OPERATOR SHYANN OLIVIER M.D.Performed By: #### BMP, HS TROP, CBC, PT, PTT, BNP #### [place] [address] USAEstimated GFR ( Nata> 60NormBarberton Citizens HospitalComment on above:Result Comment: GFR estimated reference range: According to KDOQI guidelines, <60 ml/min/1.73m2 is sufficient to diagnose a patient with chronic kidney disease.Performed By: #### BMP, HS TROP, CBC, PT, PTT, BNP #### [place] [address] USAEstimated GFR (Non- Am> 60NoSt. Mary's Medical Center, Ironton CampusComment on above:Performed By: #### BMP, HS TROP, CBC, PT, PTT, BNP #### [place] [address] USAGlucose [Mass/Vol]128 mg/gSKivy58-494ThcioqlnmGeorgetown Behavioral HospitalComment on above:Result Comment: Random Glucose Reference Range is dependent on time and content of last meal. Glucose of more than 200 mg/dL in a nonstressed, ambulatory subject supports the diagnosis of Diabetes Mellitus. ADA recommended reference rangePerformed By: #### BMP, HS TROP, CBC, PT, PTT, BNP #### [place] [address] USAPotassium [Moles/Vol]4.2 mmol/LNormal3.5-5.1FMercy Health St. Vincent Medical CenterComment on above:Performed By: #### BMP, HS TROP, CBC, PT, PTT, BNP #### [place] [address] USASodium [Moles/Vol]139 mmol/PSfwbbh923-631BqyixgtkpGeorgetown Behavioral HospitalComment on above:Performed By: #### BMP, HS TROP, CBC, PT, PTT, BNP #### [place] [address] USAUrea nitrogen [Mass/Vol]15 mg/dLNormal9-23Georgetown Behavioral HospitalComment on above:Performed By: #### BMP, HS TROP, CBC, PT, PTT, BNP #### [place] [address] USAComplete Blood Count Auto Diffon 56-61-3792Riluwziiy (Bld) [#/Vol]0.1 10*3/uLNormal0.0-0.2FMercy Health St. Vincent Medical CenterComment on above:Result Comment: PERFORMED BY: [place] [address] GRADER OPERATOR SHYANN OLIVIER M.D.Performed By: #### BMP, HS TROP, CBC, PT, PTT, BNP #### [place] [address] USABasophils/100 WBC (Bld)1.0 %Normal.Georgetown Behavioral HospitalComment on above:Performed By: #### BMP, HS TROP, CBC, PT, PTT, BNP #### [address] [place] [address] USAEosinophils (Bld) [#/Vol]0.2 10*3/uLNormal0.0-0.45 Ge[facility] Behavioral HospitalComment on above:Performed By: #### BMP, HS TROP, CBC, PT, PTT, BNP #### [place] [address] USAEosinophils/100 WBC (Bld)2.8 %Normal.Georgetown Behavioral HospitalComment on above:Performed By: #### BMP, HS TROP, CBC, PT, PTT, BNP #### [place] [address] USAErythrocyte distribution width (RBC) [Ratio]15.0 %High 12.0-14.8Ge[facility] Behavioral HospitalComment on above:Performed By: #### BMP, HS TROP, CBC, PT, PTT, BNP #### [place] [address] USAHematocrit (Bld) [Volume fraction]41.9 %Jlblfv77.8-50.0 [facility] HospitalComment on above:Performed By: #### BMP, HS TROP, CBC, PT, PTT, BNP #### [place] [address] USAHemoglobin (Bld) [Mass/Vol]14.2 g/mGOznijf53.0-17.0 [facility] HospitalComment on above:Performed By: #### BMP, HS TROP, CBC, PT, PTT, BNP #### [place] [address] USALymphocytes (Bld) [#/Vol]1.1 10*3/uLNormal1.00-4.8 [facility] HospitalComaleda e. lutz veterans affairs medical center on above:Performed By: #### BMP, HS TROP, CBC, PT, PTT, BNP #### [place] [address] USALymphocytes/100 WBC (Bld)13.9 %Normal.Ge[facility] Behavioral HospitalComment on above:Performed By: #### BMP, HS TROP, CBC, PT, PTT, BNP #### [facility] [address]H (RBC) [Entitic mass]31.4 vkTwklsv80.5-35.2FMercy Health St. Vincent Medical CenterComment on above:Performed By: #### BMP, HS TROP, CBC, PT, PTT, BNP #### [address]V (RBC) [Entitic vol]92.5 oTCgolgi64.5-101Georgetown Behavioral HospitalComment on above:Performed By: #### BMP, HS TROP, CBC, PT, PTT, BNP #### [place] [address] USAMean Corpuscular HGB Conc33.9 g/lFJtwqnc92.5-35.6FMercy Health St. Vincent Medical CenterComment on above:Performed By: #### BMP, HS TROP, CBC, PT, PTT, BNP #### [place] [address] USAMonocytes (Bld) [#/Vol]0.6 10*3/uLNormal0.0-0.8[facility]al HospitalComaleda e. lutz veterans affairs medical center on above:Performed By: #### BMP, HS TROP, CBC, PT, PTT, BNP #### [place] [address] USAMonocytes/100 WBC (Bld)8.3 %Normal.Ge[facility] Behavioral HospitalComment on above:Performed By: #### BMP, HS TROP, CBC, PT, PTT, BNP #### [place] [address] USANeutrophils (Bld) [#/Vol]5.8 10*3/uLNormal1.8-7.7FMercy Health St. Vincent Medical CenterComment on above:Performed By: #### BMP, HS TROP, CBC, PT, PTT, BNP #### [place] [address] USANeutrophils/100 WBC (Bld)74.0 %Normal.Ge[facility] Behavioral HospitalComment on above:Performed By: #### BMP, HS TROP, CBC, PT, PTT, BNP #### [facility] [address] [place] [address] USANucleated RBC/100 WBC (Bld) [Ratio]0.0 %Normal0-0.5 [facility]al HospitalComment on above:Performed By: #### BMP, HS TROP, CBC, PT, PTT, BNP #### [facility] [address] [place] [address] USAPlatelet mean volume (Bld) [Entitic vol]8.0 fLNormal 6.6-10.1FMercy Health St. Vincent Medical CenterComment on above:Performed By: #### BMP, HS TROP, CBC, PT, PTT, BNP #### [facility] [address] [place] [address] USAPlatelets (Bld) [#/Vol]409 10*3/fZKgsxfx349-829FratrqvweGeorgetown Behavioral HospitalComment on above:Performed By: #### BMP, HS TROP, CBC, PT, PTT, BNP #### [facility] [address] [place] [address] USARBC (Bld) [#/Vol]4.53 10*6/uLNormal3.90-5.60Ge[facility]al HospitalComment on above:Performed By: #### BMP, HS TROP, CBC, PT, PTT, BNP #### [place] [address] USAWBC (Bld) [#/Vol]7.8 10*3/uLNormal4.5-11.0Ge[facility]al HospitalComment on above:Performed By: #### BMP, HS TROP, CBC, PT, PTT, BNP #### [facility] [address] [place] [address] USACreatine Kinaseon 41-51-2199TG [Catalytic activity/Vol]128 U/SEqvgrk16-953RjxcsutejGeorgetown Behavioral HospitalComment on above:Order Comment: get all labs @0315 per rnPerformed By: #### BMP, HS TROP, CBC, PT, PTT, BNP #### [facility] [address] [place] [id number] USACreatinine Kinase MBon 01-84-2894NY.MB [Mass/Vol]15.6 ng/mLHigh0.6-6.3FMercy Health St. Vincent Medical CenterComment on above:Order Comment: get all labs @0315 per rnPerformed By: #### BMP, HS TROP, CBC, PT, PTT, BNP #### [facility] [address] [place] [address] USACKMB Relative Index12.1 %High0.00-2.50[facility] Behavioral HospitalComment on above:Order Comment: get all labs @0315 per rnPerformed By: #### BMP, HS TROP, CBC, PT, PTT, BNP #### [facility] [address] [place] [address] USAECG 12 lead ECGon 35-72-0920WFG 12 lead ECGUNIVERSITY HOSPITALS GEAU[facility] Main [place] [address] [place] [address] Electrocardiograph Report Signed Patient: Vishal Duke MR#: [id number] : 1960 Acct:[id number] Age/Sex: 59 / M ADM Date: 12/08/20 Loc: Room: [address] [place] [address] Type: ADM IN Attending Dr: Leonardo Storey [...] Fu DO 12/09/20 0816 Signed By: 12/09/20 1315NormalGeorgetown Behavioral HospitalMagnesiumon 32-12-3613Micaiwtpv [Mass/Vol]2.0 mg/dLNormal1.6-2.6FMercy Health St. Vincent Medical CenterComment on above:Order Comment: Comment Add on to amResult Comment: PERFORMED BY: [place] [address]ADER OPERATOR SHYANN OLIVIER M.D.Performed By: #### BMP, HS TROP, CBC, PT, PTT, BNP #### [facility] [address] [place] [address] USAPartial Thromboplastin Timeon 92-74-4393vIND Coag (Bld) [Time]37.7 sHigh25.1-36.5FMercy Health St. Vincent Medical CenterComment on above: Result Comment: PERFORMED BY: [address] GRADER OPERATOR SHYANN OLIVIER M.D.Performed By: #### BMP, HS TROP, CBC, PT, PTT, BNP #### [facility] [address] [place] [address] USAProthrombin Time INRon 49-98-4160LNC Coag (PPP) [Relative time]1.2 {INR}NormalGeorgetown Behavioral HospitalComment on above:Result Comment: INR Therapeutic Range A) [...] HS TROP, CBC, PT, PTT, BNP #### [address] [address] USAPT Coag (PPP) [Time]13.8 sHigh9.0-12.9Ge[facility] Behavioral HospitalComment on above:Performed By: #### BMP, HS TROP, CBC, PT, PTT, BNP #### [place] [address] USATroponin I High Sensitivityon 37-50-7046Dkcyokve I High Eldklkzrdto5966 pg/mLOff scale high0-20[facility]al HospitalComment on above:Order Comment: * RN to call lab when pt returns hkoResult Comment: PERFORMED BY: [place] [address] GRADER OPERATOR SHYANN OLIVIER M.D.Performed By: #### BMP, HS TROP, CBC, PT, PTT, BNP #### [place] [address] USATroponin I High Gffyajzefvh9056 pg/mLOff scale high0-20 [facility] HospitalComment on above:Order Comment: Comment during code blueResult Comment: PERFORMED BY: [place] [address] GRADER OPERATOR SHYANN OLIVIER M.D.Performed By: #### BMP, HS TROP, CBC, PT, PTT, BNP #### [place] [address] USATroponin I High Atlkbnrwald3527 pg/mLOff scale high0-20 [facility] HospitalComment on above:Order Comment: get all labs @0315 per rnResult Comment: PERFORMED BY: [place] [address] GRADER OPERATOR SHYANN OLIVIER M.D.Performed By: #### BMP, HS TROP, CBC, PT, PTT, BNP #### [place] [address] USAB-Type Natriuretic Peptideon 76-51-6952Ngnqhcictaa peptide B (Bld) [Mass/Vol]199.0 pg/mLWilliamson Memorial Hospital5-100Ge[facility] Behavioral HospitalComment on above:Result Comment: PERFORMED BY: [place] [id number]AD GRADER OPERATOR SHYANN OLIVIER M.D.Performed By: #### BMP, HS TROP, CBC, PT, PTT, BNP #### [place] [address] USABasic Metabolic Panelon 72-26-0483Dkjjlfx [Mass/Vol]10.1 mg/dLNormal8.2-10.2FMercy Health St. Vincent Medical CenterComment on above:Performed By: #### BMP, HS TROP, CBC, PT, PTT, BNP #### [place] [address] USAChloride [Moles/Vol]101 mmol/BBovwtm42-407NkzbbspuzGeorgetown Behavioral HospitalComment on above:Performed By: #### BMP, HS TROP, CBC, PT, PTT, BNP #### [place] [address] USACO2 [Moles/Vol]23.2 mmol/PXpitiv88.0-30.0[facility] HospitalComment on above:Performed By: #### BMP, HS TROP, CBC, PT, PTT, BNP #### [place] [address] USACreatinine [Mass/Vol]1.15 mg/dLNormal0.64-1.27[facility] Behavioral HospitalComment on above:Performed By: #### BMP, HS TROP, CBC, PT, PTT, BNP #### [place] [address] USACreatinine Clr Calc Lmqziiwl84.22NoSt. Mary's Medical Center, Ironton CampusComment on above:Result Comment: PERFORMED BY: [place] [address] GRADER OPERATOR SHYANN OLIVIER M.D.Performed By: #### BMP, HS TROP, CBC, PT, PTT, BNP #### [place] [address] USAEstimated GFR ( Nata> 60NoSt. Mary's Medical Center, Ironton CampusComment on above:Result Comment: GFR estimated reference range: According to KDOQI guidelines, <60 ml/min/1.73m2 is sufficient to diagnose a patient with chronic kidney disease.Performed By: #### BMP, HS TROP, CBC, PT, PTT, BNP #### [facility] [address] [place] [address] USAEstimated GFR (Non- Am> 60NormalGeorgetown Behavioral HospitalComment on above:Performed By: #### BMP, HS TROP, CBC, PT, PTT, BNP #### [facility] [address] [place] [address] USAGlucose [Mass/Vol]153 mg/qDRgeu82-075MjpizoypaGeorgetown Behavioral HospitalComment on above:Result Comment: Random Glucose Reference Range is dependent on time and content of last meal. Glucose of more than 200 mg/dL in a nonstressed, ambulatory subject supports the diagnosis of Diabetes Mellitus. ADA recommended reference rangePerformed By: #### BMP, HS TROP, CBC, PT, PTT, BNP #### [place] [address] USAPotassium [Moles/Vol]4.5 mmol/LNormal3.5-5.1FMercy Health St. Vincent Medical CenterComment on above:Performed By: #### BMP, HS TROP, CBC, PT, PTT, BNP #### [facility] [address] [place] [address] USASodium [Moles/Vol]139 mmol/FUauimn069-634CwhaxajisGeorgetown Behavioral HospitalComment on above:Performed By: #### BMP, HS TROP, CBC, PT, PTT, BNP #### [place] [address] USAUrea nitrogen [Mass/Vol]15 mg/dLNormal9-23Ge[facility] Behavioral HospitalComment on above:Performed By: #### BMP, HS TROP, CBC, PT, PTT, BNP #### [place] [address] USACOVID-19 Antigenon 81-32-7784GHWEM-19 AntigenHealthcare Worker?: N Tessa Reference Tessa Reference [...] its performance Tessa Disclaimer characteristic determined by [employer] and Tessa Disclaimer validated at [facility]. This Tessa Disclaimer test has not [...] Emergency Use Authorization for Coronavirus Tessa Disclaimer isease-2019 during the Public Health Emergency) Tessa Disclaimer [...] is terminated or revoked sooner. PERFORMED BY: [place] [address] GRADER OPERATOR SHYANN OLIVIER M.D.NormalGeorgetown Behavioral HospitalComment on above: Performed By: #### SOFIANEG, COVID-19 [place], COVID 19 [facility] #### [place] [address] [address]AC[address] [facility] [place] [place]on 81-70-1866JIZI-CoV-2 (COVID-19) RNA ADELINE+probe Ql (Unsp spec)NegativeNormalNegativeGeorgetown Behavioral Hospital Comment on above:Order Comment: Healthcare Worker?: NResult Comment: Testing for SARS-CoV-2 by RT-PCR This test was developed and its performance characteristics determined by Jessica, [employer] and validated at the [facility]. This test has not been FDA [...] is terminated or revoked sooner. PERFORMED BY: [place] [address] GRADER OPERATOR SHYANN OLIVIER M.D.Performed By: #### BMP, HS TROP, CBC, PT, PTT, BNP #### [place] [address] USACT abdomen pelvis wo conon 59-94-7279JX abdomen pelvis wo [facility] Main [place] [address] [place] [address] CT Scan Report Signed Patient: Vishal Duke MR#: [id number] : 1960 Acct:[id number] Age/Sex: 59 / M ADM Date: 12/08/20 Loc: ER Room: Type: [facility] ER Attending Dr: Ordering Provider: Irwin Lutz [...] Biju Ag M.D.12/08/2020 11:16 AM Dictation Location: [place] [address] Transcribed By: [facility] 12/08/20 1116 Dictated By: Biju Ag MD 12/08/20 1102 Signed By: 12/08/20 1116NormalGeorgetown Behavioral HospitalComplete Blood Count Auto Diffon [id number] (Bld) [#/Vol]0.1 10*3/uLNormal0.0-0.2FMercy Health St. Vincent Medical CenterComment on above:Result Comment: PERFORMED BY: [place] [address] GRADER OPERATOR SHYANN OLIVIER M.D.Performed By: #### BMP, HS TROP, CBC, PT, PTT, BNP #### [address] [address] USABasophils/100 WBC (Bld)0.6 %Normal.[facility] Behavioral HospitalComment on above:Performed By: #### BMP, HS TROP, CBC, PT, PTT, BNP #### [place] [address] USAEosinophils (Bld) [#/Vol]0.2 10*3/uLNormal0.0-0.45 [facility] HospitalComment on above:Performed By: #### BMP, HS TROP, CBC, PT, PTT, BNP #### [place] [address] USAEosinophils/100 WBC (Bld)2.5 %Normal.[facility] Behavioral HospitalComment on above:Performed By: #### BMP, HS TROP, CBC, PT, PTT, BNP #### [place] [address] USAErythrocyte distribution width (RBC) [Ratio]15.2 %High 12.0-14.8[facility] HospitalComment on above:Performed By: #### BMP, HS TROP, CBC, PT, PTT, BNP #### [place] [address] USAHematocrit (Bld) [Volume fraction]41.7 %Wnsdmi53.8-50.0 [facility] HospitalComment on above:Performed By: #### BMP, HS TROP, CBC, PT, PTT, BNP #### [place] [address] USAHemoglobin (Bld) [Mass/Vol]14.0 g/iZNdtism23.0-17.0 [facility] HospitalComment on above:Performed By: #### BMP, HS TROP, CBC, PT, PTT, BNP #### [place] [address] USALymphocytes (Bld) [#/Vol]0.9 10*3/uLLow1.00-4.8[facility] HospitalComment on above:Performed By: #### BMP, HS TROP, CBC, PT, PTT, BNP #### [place] [address] USALymphocytes/100 WBC (Bld)10.9 %Normal.[facility] Behavioral HospitalComment on above:Performed By: #### BMP, HS TROP, CBC, PT, PTT, BNP #### [facility] [address] (RBC) [Entitic mass]31.5 tsFfmbwb65.5-35.2FMercy Health St. Vincent Medical CenterComment on above:Performed By: #### BMP, HS TROP, CBC, PT, PTT, BNP #### [address] (RBC) [Entitic vol]93.7 oHEbcwem23.5-101Ge[facility]al HospitalComment on above:Performed By: #### BMP, HS TROP, CBC, PT, PTT, BNP #### [place] [address] USAMean Corpuscular HGB Conc33.6 g/pIXeryuo71.5-35.6FMercy Health St. Vincent Medical CenterComment on above:Performed By: #### BMP, HS TROP, CBC, PT, PTT, BNP #### [place] [address] USAMonocytes (Bld) [#/Vol]0.6 10*3/uLNormal0.0-0.8[facility] HospitalComment on above:Performed By: #### BMP, HS TROP, CBC, PT, PTT, BNP #### [place] [address] USAMonocytes/100 WBC (Bld)7.4 %Normal.[facility] Behavioral HospitalComment on above:Performed By: #### BMP, HS TROP, CBC, PT, PTT, BNP #### [place] [address] USANeutrophils (Bld) [#/Vol]6.7 10*3/uLNormal1.8-7.7FMercy Health St. Vincent Medical CenterComment on above:Performed By: #### BMP, HS TROP, CBC, PT, PTT, BNP #### [address] [place] [address] USANeutrophils/100 WBC (Bld)78.6 %Normal.[facility] Behavioral HospitalComment on above:Performed By: #### BMP, HS TROP, CBC, PT, PTT, BNP #### [facility] [address] [place] [address] USANucleated RBC/100 WBC (Bld) [Ratio]0.1 %Normal0-0.5 [facility]al HospitalComment on above:Performed By: #### BMP, HS TROP, CBC, PT, PTT, BNP #### [facility] [address] [place] [address] USAPlatelet mean volume (Bld) [Entitic vol]8.2 fLNormal 6.6-10.1FMercy Health St. Vincent Medical CenterComment on above:Performed By: #### BMP, HS TROP, CBC, PT, PTT, BNP #### [facility] [address] [place] [address] USAPlatelets (Bld) [#/Vol]414 10*3/jXOazprl157-521WtyrghhpbGeorgetown Behavioral HospitalComment on above:Performed By: #### BMP, HS TROP, CBC, PT, PTT, BNP #### [place] [address] USARBC (Bld) [#/Vol]4.44 10*6/uLNormal3.90-5.60[facility] HospitalComment on above:Performed By: #### BMP, HS TROP, CBC, PT, PTT, BNP #### [facility] [address] [place] [address] USAWBC (Bld) [#/Vol]8.5 10*3/uLNormal4.5-11.0[facility] HospitalComment on above:Performed By: #### BMP, HS TROP, CBC, PT, PTT, BNP #### [place] [address] USABasophils (Bld) [#/Vol]0.1 10*3/uLNormal0.0-0.2FMercy Health St. Vincent Medical CenterComment on above:Result Comment: PERFORMED BY: [place] [address] GRADER OPERATOR SHYANN OLIVIER M.D.Performed By: #### BMP, HS TROP, CBC, PT, PTT, BNP #### [place] [address] USABasophils/100 WBC (Bld)0.7 %Normal.[facility] Behavioral HospitalComment on above:Performed By: #### BMP, HS TROP, CBC, PT, PTT, BNP #### [place] [address] USAEosinophils (Bld) [#/Vol]0.2 10*3/uLNormal0.0-0.45 [facility] HospitalComment on above:Performed By: #### BMP, HS TROP, CBC, PT, PTT, BNP #### [place] [address] USAEosinophils/100 WBC (Bld)1.8 %Normal.[facility] Behavioral HospitalComment on above:Performed By: #### BMP, HS TROP, CBC, PT, PTT, BNP #### [place] [address] USAErythrocyte distribution width (RBC) [Ratio]15.5 %High 12.0-14.8[facility] Behavioral HospitalComaleda e. lutz [facility] affairs medical center on above:Performed By: #### BMP, HS TROP, CBC, PT, PTT, BNP #### [place] [address] USAHematocrit (Bld) [Volume fraction]42.0 %Awxeqs45.8-50.0 [facility] HospitalComment on above:Performed By: #### BMP, HS TROP, CBC, PT, PTT, BNP #### [place] [address] USAHemoglobin (Bld) [Mass/Vol]14.2 g/pURvkwzp02.0-17.0 [facility] HospitalComment on above:Performed By: #### BMP, HS TROP, CBC, PT, PTT, BNP #### [facility] 1[address] [place] [address] USALymphocytes (Bld) [#/Vol]0.8 10*3/uLLow1.00-4.8[facility] HospitalComment on above:Performed By: #### BMP, HS TROP, CBC, PT, PTT, BNP #### [facility] 1[address] [place] [address] USALymphocytes/100 WBC (Bld)7.7 %Normal.[facility] Behavioral HospitalComment on above:Performed By: #### BMP, HS TROP, CBC, PT, PTT, BNP #### [address] (RBC) [Entitic mass]31.3 ejVykguq29.5-35.2FMercy Health St. Vincent Medical CenterComment on above:Performed By: #### BMP, HS TROP, CBC, PT, PTT, BNP #### [address] (RBC) [Entitic vol]92.4 xAWhxhmw51.5-101[facility] HospitalComment on above:Performed By: #### BMP, HS TROP, CBC, PT, PTT, BNP #### [place] [address] USAMean Corpuscular HGB Conc33.9 g/qKWwoibb91.5-35.6FMercy Health St. Vincent Medical CenterComment on above:Performed By: #### BMP, HS TROP, CBC, PT, PTT, BNP #### [place] [address] USAMonocytes (Bld) [#/Vol]0.8 10*3/uLNormal0.0-0.8[facility] HospitalComment on above:Performed By: #### BMP, HS TROP, CBC, PT, PTT, BNP #### [place] [address] USAMonocytes/100 WBC (Bld)7.5 %Normal.[facility] Behavioral HospitalComment on above:Performed By: #### BMP, HS TROP, CBC, PT, PTT, BNP #### [facility] [address] [place] [address] USANeutrophils (Bld) [#/Vol]9.0 10*3/uLHigh1.8-7.7FMercy Health St. Vincent Medical CenterComment on above:Performed By: #### BMP, HS TROP, CBC, PT, PTT, BNP #### [facility] [address] [place] [address] USANeutrophils/100 WBC (Bld)82.3 %Normal.[facility] Behavioral HospitalComment on above:Performed By: #### BMP, HS TROP, CBC, PT, PTT, BNP #### [place] [address] USANucleated RBC/100 WBC (Bld) [Ratio]0.1 %Normal0-0.5 [facility] HospitalComaleda e. lutz veterans affairs medical center on above:Performed By: #### BMP, HS TROP, CBC, PT, PTT, BNP #### [facility] [address] [place] [address] USAPlatelet mean volume (Bld) [Entitic vol]7.9 fLNormal 6.6-10.1FMercy Health St. Vincent Medical CenterComment on above:Performed By: #### BMP, HS TROP, CBC, PT, PTT, BNP #### [place] [address] USAPlatelets (Bld) [#/Vol]463 10*3/fIQzsh719-275MnzfofgbiGeorgetown Behavioral HospitalComment on above:Performed By: #### BMP, HS TROP, CBC, PT, PTT, BNP #### [place] [address] USARBC (Bld) [#/Vol]4.54 10*6/uLNormal3.90-5.60[facility] HospitalComment on above:Performed By: #### BMP, HS TROP, CBC, PT, PTT, BNP #### [place] [address] USAWBC (Bld) [#/Vol]11.0 10*3/uLNormal4.5-11.0[facility] HospitalComment on above:Performed By: #### BMP, HS TROP, CBC, PT, PTT, BNP #### [place] [address] USACreatine Kinaseon 50-69-4456IX [Catalytic activity/Vol]78 U/ZDjcnvg16-052LizmxwuukGeorgetown Behavioral HospitalComment on above:Performed By: #### BMP, HS TROP, CBC, PT, PTT, BNP #### [place] [address] USACK [Catalytic activity/Vol]67 U/ABolkuk19-951Gpskkfyih[address] [place], [place] [address]Comment on above:Performed By: #### BMP, HS TROP, CBC, PT, PTT, BNP #### [place] [address] USACK [Catalytic activity/Vol]58 U/AVeoxgl22-992Ehqcdinna[address] [place], [place] [address]Comment on above:Performed By: #### BMP, HS TROP, CBC, PT, PTT, BNP #### [place] [address] USACreatinine Kinase MBon 32-71-6462TD.MB [Mass/Vol]6.3 ng/mL Normal0.6-6.3FMercy Health St. Vincent Medical CenterComment on above:Performed By: #### BMP, HS TROP, CBC, PT, PTT, BNP #### [place] [address] USACKMB Relative Index8.0 %High0.00-2.50[facility] HospitalComment on above:Performed By: #### BMP, HS TROP, CBC, PT, PTT, BNP #### [place] [address] USACK.MB [Mass/Vol]4.2 ng/mLNormal0.6-6.3FMercy Health St. Vincent Medical CenterComment on above:Performed By: #### BMP, HS TROP, CBC, PT, PTT, BNP #### [place] [address] USACKMB Relative Index6.2 %High0.00-2.50[facility] HospitalComment on above:Performed By: #### BMP, HS TROP, CBC, PT, PTT, BNP #### [facility] [address] [place] [address] USACK.MB [Mass/Vol]3.7 ng/mLNormal0.6-6.3FMercy Health St. Vincent Medical CenterComment on above:Performed By: #### BMP, HS TROP, CBC, PT, PTT, BNP #### [facility] [address] [place] [address] USACKMB Relative Index6.3 %High0.00-2.50[facility] Behavioral HospitalComment on above:Performed By: #### BMP, HS TROP, CBC, PT, PTT, BNP #### [facility] [address] [place] [address] USAECG 12 lead ECGon 46-14-8605GPI 12 lead ECGUNIVERSITY [facility] [address] [place] [address] [place] [address] Electrocardiograph Report Signed Patient: Vishal Duke MR#: [id number] : 1960 Acct:[id number] Age/Sex: 59 / M ADM Date: 12/08/20 Loc: Room: [address] [place] [address] Type: ADM INOo Attending Dr: Daniel Prabhakar [...] Lateral leads Confirmed by IRWIN LUTZ DO ([id number]) on 12/09/2020 6:02:40 AM Referred By: Electronically Signed By:IRWIN LUTZ DO Transcribed By: MUS Dictated By: Irwin Lutz DO 12/08/20 0950 Signed By: 12/09/20 0602NormalGeorgetown Behavioral HospitalPartial Thromboplastin Timeon 90-08-8702wQOA Coag (Bld) [Time]131.9 sOff scale high 25.1-36.5FMercy Health St. Vincent Medical CenterComment on above:Result Comment: Results called at 1947 on 12/08/20 PERFORMED BY: [address] GRADER OPERATOR SHYANN OLIVIER M.D.Performed By: #### BMP, HS TROP, CBC, PT, PTT, BNP #### [address] [address] USAaPTT Coag (Bld) [Time]36.2 mGfghia60.1-36.5FMercy Health St. Vincent Medical CenterComment on above:Result Comment: PERFORMED BY: [address] GRADER OPERATOR SHYANN OLIVIER M.D.Performed By: #### BMP, HS TROP, CBC, PT, PTT, BNP #### [address] [address] USAProthrombin Time INRon 65-01-2021WQA Coag (PPP) [Relative time]1.5 {INR}[facility] Medical CenterComment on above:Result Comment: INR Therapeutic Range [...] HS TROP, CBC, PT, PTT, BNP #### [address] [address] USAPT Coag (PPP) [Time]16.1 sHigh9.0-12.9[facility] Behavioral HospitalComment on above:Performed By: #### BMP, HS TROP, CBC, PT, PTT, BNP #### [facility] [address] [place] [address] USAINR Coag (PPP) [Relative time]1.3 {INR}NormalGeorgetown Behavioral HospitalComment on above:Result Comment: INR Therapeutic Range A) [...] HS TROP, CBC, PT, PTT, BNP #### [facility] [address] [place] [address] USAPT Coag (PPP) [Time]14.0 sHigh9.0-12.9[facility] Behavioral HospitalComment on above:Performed By: #### BMP, HS TROP, CBC, PT, PTT, BNP #### [facility] [address] [place] [address] USASofia Ag Negativeon 66-08-3656Ioiir Ag NegativeNegative NormalNegativeGeorgetown Behavioral HospitalComment on above:Result Comment: This is a duplicate Tessa SARS Antigen (GISSEL) result to be used for statistical tracking purpose only. PERFORMED BY: [place] [id number] GRADER OPERATOR SHYANN OLIVIER M.D.Performed By: #### SOFIANEG, COVID-19 [place], COVID [address] [facility] #### [facility] [address] [place] [address] USATroponin I High Sensitivityon 53-12-3394Hadfsftx I High Moarxxnoyxd609 pg/mLOff scale high0-20[facility] HospitalComment on above:Result Comment: PERFORMED BY: [address] GRADER OPERATOR SHYANN OLIVIER M.D.Performed By: #### BMP, HS TROP, CBC, PT, PTT, BNP #### [facility] [address] [place] [address] USATroponin I High Nlewtcylcqh526 pg/mLOff scale high0-20 [facility] HospitalComment on above:Result Comment: PERFORMED BY: [place] [address] GRADER OPERATOR SHYANN OLIVIER M.D.Performed By: #### BMP, HS TROP, CBC, PT, PTT, BNP #### [place] [id number] USATroponin I High Qximisukqpy123 pg/mLOff scale high0-20 [facility] HospitalComment on above:Result Comment: Critical value result called at 1719 on 12/08/20 PERFORMED BY: [place] [address] GRADER OPERATOR SHYANN OLIVIER M.D.Performed By: #### BMP, HS TROP, CBC, PT, PTT, BNP #### [place] [address] USATroponin I High Eeyfawlvvvs28 pg/mLWilliamson Memorial Hospital0-20Ge[facility] Behavioral HospitalComment on above:Result Comment: PERFORMED BY: [place] [address] GRADER OPERATOR SHYANN OLIVIER M.D.Performed By: #### BMP, HS TROP, CBC, PT, PTT, BNP #### [place] [id number] USAXR chest 1V portableon 74-79-0480VM chest 1V portable [facility] Main [place] [address] [place], [place] [address] XRay Report Signed Patient: Vishal Duke MR#: [id number] : 1960 Acct:[id number] Age/Sex: 59 / M ADM Date: 12/08/20 Loc: ER Room: Type: [facility] ER Attending Dr: Ordering Provider: Irwin Lutz DO Date of Service: 08/24/21 XR/XR chest 1V portable: Chest Pain Copies [...] Biju Ag M.D.12/08/2020 11:02 AM Dictation Location: [place] [address] Transcribed By: [facility] 12/08/20 1102 Dictated By: Biju Ag MD 12/08/20 1059 Signed By: 12/08/20 1102[facility] Valley Medical CenterTACROLIMUSon 12-04-2020 Tacrolimus (Bld) [Mass/Vol]8.0 ng/mLNormal5.0-20.0The [facility] County HospitalComment on above:Order Comment: Yes: Add to Previous draw if able Result Comment: The [employer] Tacrolimus assay is a delayed one-step immunoassay for the quantitative determination of tacrolimus in human whole blood using the chemiluminescent microparticle immunoassay (CMIA) technology with flexible assay protocols, referred to as Chemiflex.Performed By: #### 62147, 53118, 99101, 38925, 39641 #### [facility] [address] [place] [address], USATROPONIN-Ion 60-75-0412Nlnqpbwd I.cardiac [Mass/Vol]0.03 ng/mLNormal0.00-0.04The [facility] HospitalComment on above: Order Comment: No: Do not add to previous draw Pt in bath room askme to come backResult Comment: REFERENCE RANGES: 0.00 - 0.04 ng/ml NORMAL 0.05 - 0.50 ng/ml INDETERMINATE > 0.50 ng/ml CONSISTENT WITH AN M.I.Performed By: #### 52882 #### [facility] [address] [place] [address], USAOrder Comment: No: Do not add to previous drawPerformed By: #### 67724, 47449, 95877, 40623, 12559 #### [facility] [address] [place] [address], USATroponin I.cardiac [Mass/Vol]0.03 ng/mLNormal0.00-0.04The [facility] HospitalComment on above:Result Comment: REFERENCE RANGES: 0.00 - 0.04 ng/ml NORMAL 0.05 - 0.50 ng/ml INDETERMINATE > 0.50 ng/ml CONSISTENT WITH AN M.I.Performed By: #### 53398, 09498, 62558, 16246, 48612 #### [facility] [address] [place] [address], USAktx basic metabolic panelon 75-67-5092Iatyyue [Mass/Vol]8.9 mg/dLNormal8.6-10.3The [facility] HospitalComment on above: Performed By: #### 96940, 04671, 25580, 50939, 47802 #### [facility] [address] [place] [address], USAChloride [Moles/Vol]106 mmol/SAfwjeg25-847Evq [facility] HospitalComment on above:Performed By: #### 01944, 45385, 25380, 17945, 44609 #### [facility] [address] [place] [address], USACO2 [Moles/Vol]19 mmol/QJpg95-15Qyy [facility] HospitalComment on above:Performed By: #### 94140, 10007, 80949, 98753, 58287 #### [facility] [address] [place] [address], USACreatinine [Mass/Vol]0.82 mg/dLNormal0.70-1.30The [facility] HospitalComment on above:Performed By: #### 41431, 67895, 37214, 11585, 35743 #### [facility] [address] [place] [address], USAGFR/1.73 sq M.predicted among blacks MDRD (S/P/Bld) [Vol rate/Area]mL/min/{1.73_m2}Normal>60The [facility] Comment on above:Performed By: #### 89874, 26963, 96360, 87937, 70475 #### [facility] [address] [place] [address], USAGFR/1.73 sq M.predicted among non-blacks MDRD (S/P/Bld) [Vol rate/Area]mL/min/{1.73_m2}Normal>60The [facility] Comment on above:Performed By: #### 31056, 67791, 48269, 05122, 55130 #### [facility] [address] [place] [address], USAGlucose [Mass/Vol]127 mg/vDAduu57-321Ttj [facility] HospitalComment on above:Performed By: #### 92324, 02737, 60011, 61036, 62571 #### [facility] [address] [place] [address], USAPotassium [Moles/Vol]3.9 mmol/LNormal3.5-5.1The [facility] HospitalComment on above:Performed By: #### 33531, 44376, 37636, 13586, 92765 #### [facility] [address] [place] [address], USASodium [Moles/Vol]136 mmol/AAnopwk798-036Dlv [facility] HospitalComment on above:Performed By: #### 24929, 33189, 27020, 91040, 05567 #### [facility] [address] [place] [address], USAUrea nitrogen [Mass/Vol]10 mg/dLNormal7-25The [facility] HospitalComment on above:Performed By: #### 55739, 11034, 57745, 33605, 75209 #### [facility] [address] [facility] [place] [address], USAktx cbc complete blood counton 64-80-7165Jsbnotixnzt distribution width (RBC) [Ratio]14.6 %Atgxvn88.5-15.0The [facility] HospitalComment on above:Performed By: #### 01142 #### [facility] [address] [facility] [place] [address], USAHematocrit (Bld) [Volume fraction]38.7 %Low39.0-50.0The [facility] HospitalComment on above:Performed By: #### 57198 #### [facility] [address] [facility] [place] [address], USAHemoglobin (Bld) [Mass/Vol]12.8 g/dLLow13.0-17.0The [facility] HospitalComment on above:Performed By: #### 28748 #### [facility] [address] [facility] [place] [address], USAMCH (RBC) [Entitic mass]31.3 zxLwbqfq45.0-33.0The [facility] HospitalComment on above:Performed By: #### 69039 #### [facility] [address] [place] [address], USAMCHC (RBC) [Mass/Vol]33.1 g/rFWmwlhc20.0-35.0The [facility] HospitalComment on above:Performed By: #### 64708 #### [facility] [address] [place] [address], TOHATCH[facility] HEALTH CARE CENTERMCV (RBC) [Entitic vol]94.6 tTXzueun96.0-98.0The [facility] HospitalComment on above:Performed By: #### 03801 #### [facility] [address] [place] [id number], USANucleated RBC/100 WBC (Bld) [Ratio]0 %Normal0-0The [facility] HospitalComment on above:Performed By: #### 20599 #### [facility] [address] [place] [address], USAPLAT KND156 10*3/sUQiamgu001-662Odf [facility] HospitalComment on above:Performed By: #### 43197 #### [facility] [address] [place] [address], USARBC (Bld) [#/Vol]4.09 10*6/uLLow4.20-5.70The [facility] HospitalComment on above:Performed By: #### 30175 #### [facility] [address] [place] [address], USAWBC (Bld) [#/Vol]12.30 10*3/uLHigh4.00-10.60The [facility] HospitalComment on above:Performed By: #### 73664 #### [facility] [address] [place] [address], USAktx magnesium bloodon 18-53-9478Jrhntjdla [Mass/Vol]1.6 mg/dLLow1.9-2.7The [facility] HospitalComment on above:Performed By: #### 19426, 00051, 87680, 11082, 08248 #### [facility] [address] [place] [address], USAktx phosphoruson 72-81-4965Wlaqixbkk [Mass/Vol]2.4 mg/dLLow 2.5-5.0The [facility] HospitalComment on above:Performed By: #### 59041, 36554, 45660, 59646, 65168 #### [facility] [address] [place] [address], USATACROLIMUSon 01-07-1243Jjkbxxdjvh (Bld) [Mass/Vol]9.1 ng/mL Normal5.0-20.0The [facility] HospitalComment on above:Order Comment: Yes: Add to Previous draw if ableResult Comment: The [employer] Tacrolimus assay is a delayed one-step immunoassay for the quantitative determination of tacrolimus in human whole blood using the chemiluminescent microparticle immunoassay (CMIA) technology with flexible assay protocols, referred to as Chemiflex.Performed By: #### 80266, 27224, 52060, 27909, 67710 #### [facility] [address] [place] [address], USAktx basic metabolic panelon [id number] [Mass/Vol]9.5 mg/dLNormal8.6-10.3The [facility] HospitalComment on above: Performed By: #### 27231, 96775, 10482, 45161, 22711 #### [facility] [place] [address] [place] [address], USAChloride [Moles/Vol]102 mmol/ETwzmdi10-252Gju [facility] HospitalComment on above:Performed By: #### 36876, 80993, 26542, 18225, 01065 #### [facility] [place] [address] [place] [address], USACO2 [Moles/Vol]22 mmol/CCsanjs83-76Pyt [facility] HospitalComment on above:Performed By: #### 87108, 69512, 68081, 04783, 72405 #### [facility] [place] [address] [place] [address], USACreatinine [Mass/Vol]0.88 mg/dLNormal0.70-1.30The [facility] HospitalComment on above:Performed By: #### 76326, 30852, 38770, 54082, 47310 #### [facility] [place] [address] [place] [address], USAGFR/1.73 sq M.predicted among blacks MDRD (S/P/Bld) [Vol rate/Area]mL/min/{1.73_m2}Normal>60The [facility] Comment on above:Performed By: #### 70101, 48583, 04552, 91804, 24044 #### [facility] [place] [address] [place] [address], USAGFR/1.73 sq M.predicted among non-blacks MDRD (S/P/Bld) [Vol rate/Area]mL/min/{1.73_m2}Normal>60The [facility] Comment on above:Performed By: #### 28887, 11344, 04809, 04085, 82259 #### [facility] [facility] [place] [address] [place] [address], USAGlucose [Mass/Vol]120 mg/yZNqfc27-971Vke [facility] HospitalComment on above:Performed By: #### 18828, 52332, 11802, 99675, 27221 #### [facility] [place] [address] [place] [address], USAPotassium [Moles/Vol]3.8 mmol/LNormal3.5-5.1The [facility] HospitalComment on above:Performed By: #### 18838, 93745, 54385, 17461, 32395 #### [facility] [place] [address] [place] [address], USASodium [Moles/Vol]134 mmol/JGch237-777Rwp [facility] HospitalComment on above:Performed By: #### 95540, 31530, 24186, 20574, 07730 #### [facility] [place] [address] [place] [address], USAUrea nitrogen [Mass/Vol]9 mg/dLNormal7-25The [facility] HospitalComment on above:Performed By: #### 01129, 68498, 68632, 01270, 85461 #### [facility] [place] [address] [place] [id number], USAktx cbc complete blood counton 57-45-2978Bejkqyuayac distribution width (RBC) [Ratio]14.6 %Ifzidp12.5-15.0The [facility] HospitalComment on above:Performed By: #### 81996 #### [facility] [place] [address] [facility] [place] [address], USAHematocrit (Bld) [Volume fraction]40.4 %Ilpamr53.0-50.0The [facility] HospitalComment on above:Performed By: #### 28551 #### [facility] [place] [address] [place] [place] [address], USAHemoglobin (Bld) [Mass/Vol]13.6 g/wSKeskxu19.0-17.0The [facility] HospitalComment on above:Performed By: #### 08920 #### [facility] [place] [address] [place] [address], USAMCH (RBC) [Entitic mass]31.1 xdYbrtgx17.0-33.0The [facility] HospitalComment on above:Performed By: #### 45430 #### [facility] [place] [address] [facility] [place] [address], USAMCHC (RBC) [Mass/Vol]33.7 g/nIWkseyk25.0-35.0The [facility] HospitalComment on above:Performed By: #### 56850 #### [facility] [place] [address] [facility] [place] [address], USAMCV (RBC) [Entitic vol]92.4 yCRosqgx09.0-98.0The [facility] HospitalComment on above:Performed By: #### 16619 #### [facility] [place] [address] [place] [address], USANucleated RBC/100 WBC (Bld) [Ratio]0 %Normal0-0The [facility] HospitalComment on above:Performed By: #### 73812 #### [facility] [place] [address] [place] [address], USAPLAT RNR830 10*3/xTAxktpr327-456Dse [facility] HospitalComment on above:Performed By: #### 20582 #### [facility] [place] [address] [place] [address], USARBC (Bld) [#/Vol]4.37 10*6/uLNormal4.20-5.70The [facility] HospitalComment on above:Performed By: #### 09061 #### [facility] [place] [address] [place] [address], USAWBC (Bld) [#/Vol]12.42 10*3/uLHigh4.00-10.60The [facility] HospitalComment on above:Performed By: #### 09391 #### [facility] [place] [address] [place] [address], USAktx magnesium bloodon 94-29-1650Ybnudqhes [Mass/Vol]2.1 mg/dLNormal1.9-2.7The [facility] HospitalComment on above: Performed By: #### 09682, 02854, 55720, 34109, 57192 #### [facility] [place] [address] [place] [address], USAktx phosphoruson 40-60-6750Ukvllkwva [Mass/Vol]3.3 mg/dL Normal2.5-5.0The [facility] HospitalComment on above:Performed By: #### 71061, 68142, 58309, 70788, 09930 #### [facility] [place] [address] [place] [address], USABASIC METABOLIC PANELon 84-49-9572Lfonecs [Mass/Vol]10.1 mg/dLNormal8.6-10.3The [facility] HospitalComment on above:Order Comment: No: Do not add to previous drawPerformed By: #### 48197, 06714, 76056, 19599, 36612 #### [facility] [place] [address] [place] [address], USAChloride [Moles/Vol]97 mmol/PFbo37-063Knu [facility] HospitalComment on above:Order Comment: No: Do not add to previous drawPerformed By: #### 27545, 71330, 51080, 35524, 77795 #### [facility] [place] [address] [place] [address], USACO2 [Moles/Vol]27 mmol/VFstcgz14-83Ihf [facility] HospitalComment on above:Order Comment: No: Do not add to previous draw Performed By: #### 59086, 38224, 40868, 77227, 15245 #### [facility] [place] [address] [place] [address], USACreatinine [Mass/Vol]1.12 mg/dLNormal0.70-1.30The [facility] HospitalComment on above:Order Comment: No: Do not add to previous drawPerformed By: #### 45318, 05873, 88607, 80778, 85676 #### [facility] [place] [address] [place] [address], USAGFR/1.73 sq M.predicted among blacks MDRD (S/P/Bld) [Vol rate/Area]mL/min/{1.73_m2}Normal>60The [facility] Comment on above:Order Comment: No: Do not add to previous drawPerformed By: #### 36567, 69576, 38971, 78896, 69753 #### [facility] [place] [address] [place] [address], USAGFR/1.73 sq M.predicted among non-blacks MDRD (S/P/Bld) [Vol rate/Area]mL/min/{1.73_m2}Normal>60The [facility] Comment on above:Order Comment: No: Do not add to previous drawPerformed By: #### 08071, 94665, 82459, 98521, 03406 #### [facility] [place] [address] [place] [address], USAGlucose [Mass/Vol]124 mg/oBNukr52-948Joq [facility] HospitalComment on above:Order Comment: No: Do not add to previous drawPerformed By: #### 23548, 36949, 33652, 52349, 31429 #### [facility] [place] [address] [place] [address], USAPotassium [Moles/Vol]4.4 mmol/LNormal3.5-5.1The [facility] HospitalComment on above:Order Comment: No: Do not add to previous drawPerformed By: #### 92341, 60214, 16656, 54909, 27666 #### [facility] [place] [address] [place] [address], USASodium [Moles/Vol]133 mmol/EAwl682-720Kbh [facility] HospitalComment on above:Order Comment: No: Do not add to previous drawPerformed By: #### 87426, 24322, 86315, 78101, 25461 #### [facility] [place] [address] [place] [address], USAUrea nitrogen [Mass/Vol]17 mg/dLNormal7-25The [facility] HospitalComment on above:Order Comment: No: Do not add to previous drawPerformed By: #### 85925, 51435, 08431, 99293, 37826 #### [facility] [place] [address] [place] [address], USACBC COMPLETE BLOOD COUNTon 08-55-2476Bqnmfymgqel distribution width (RBC) [Ratio]14.7 %Pojfmb01.5-15.0The [facility] HospitalComment on above:Order Comment: No: Do not add to previous draw Performed By: #### 89086 #### [facility] [place] [address] [place] [address], USAHematocrit (Bld) [Volume fraction]43.7 %Ydrhth14.0-50.0The [facility] HospitalComment on above:Order Comment: No: Do not add to previous drawPerformed By: #### 88404 #### [facility] [place] [address] [place] [address], USAHemoglobin (Bld) [Mass/Vol]14.1 g/zPGhgrch89.0-17.0The [facility] HospitalComment on above:Order Comment: No: Do not add to previous drawPerformed By: #### 12571 #### [facility] [place] [address] [place] [address], [facility]ALESTERH (RBC) [Entitic mass]30.8 zsUaewls55.0-33.0The [facility] HospitalComment on above:Order Comment: No: Do not add to previous drawPerformed By: #### 38947 #### [facility] [place] [address] [place] [address], [facility] MCALESTERHC (RBC) [Mass/Vol]32.3 g/lTVjtlws02.0-35.0The [facility] HospitalComment on above:Order Comment: No: Do not add to previous drawPerformed By: #### 30071 #### [facility] [place] [address] [place] [address], [facility]ALESTERV (RBC) [Entitic vol]95.4 lAZjvelq13.0-98.0The [facility] HospitalComment on above:Order Comment: No: Do not add to previous drawPerformed By: #### 72269 #### [facility] [place] [address] [place] [address], USANucleated RBC/100 WBC (Bld) [Ratio]0 %Normal0-0The [facility] HospitalComment on above:Order Comment: No: Do not add to previous drawPerformed By: #### 39065 #### [facility] [place] [address] [place] [address], USAPLAT CHD490 10*3/hKBvdauo984-964Rtl [facility] HospitalComment on above:Order Comment: No: Do not add to previous draw Performed By: #### 74840 #### [facility] [place] [address] [place] [address], USARBC (Bld) [#/Vol]4.58 10*6/uLNormal4.20-5.70The [facility] HospitalComment on above:Order Comment: No: Do not add to previous drawPerformed By: #### 38931 #### [facility] [place] [address] [place] [address], USAWBC (Bld) [#/Vol]13.96 10*3/uLHigh4.00-10.60The [facility] HospitalComment on above:Order Comment: No: Do not add to previous drawPerformed By: #### 37904 #### [facility] [place] [address] [place] [address], USAMAGNESIUM BLOODon 83-35-1071Bbvnyypax [Mass/Vol]1.5 mg/dL Low1.9-2.7The [facility] HospitalComment on above:Order Comment: No: Do not add to previous drawPerformed By: #### 37345, 43797, 82340, 49903, 72916 #### [facility] [place] [address] [place] [address], USAPHOSPHORUS BLOODon 74-47-3057Skgmzoavf [Mass/Vol]3.8 mg/dL Normal2.5-5.0The [facility] HospitalComment on above:Order Comment: No: Do not add to previous drawPerformed By: #### 53424, 89579, 20855, 15934, 51464 #### [facility] [place] [address] [facility] [place] [address], USAPROTHROMBIN TIMEon 12-35-6286MFL Coag (PPP) [Relative time] 1.12 {INR}Normal0.91-1.16The [facility] HospitalComment on above:Order Comment: No: Do not [...] OPTIMAL THERAPEUTIC RANGE. CHEST 1995;108:231S-246S.Performed By: #### 95431 ####[facility] [place] [facility] [place] [address], USAPT Coag (PPP) [Time]14.4 sNormal 12.3-14.8The [facility] HospitalComment on above:Order Comment: No: Do not add to previous drawResult Comment: ALL RESULTS MUST BE INTERPRETED WITH RESPECT TO BLOOD DRAWING ARTIFACT OR DILUTION ERROR OF ANTICOAGULANT AT THE TIME OF SAMPLING.Performed By: #### 83938 ####[facility] [place] [facility] [place] [address], USACBC W/DIFFon 75-38-4706LIK IMM GRANS0.1 10*3/uLNormal0.0-0.2The [facility] HospitalComment on above:Performed By: #### 15164 #### [facility] [place] [address] [facility] [place] [address], USAABS DTPJLIKCSTA47.0 10*3/uLHigh1.6-7.6The [facility] HospitalComment on above:Performed By: #### 68584 #### [facility] [place] [address] [facility] [place] [address], TO[facility]ATCHI HE[facility] CARE CENTERBasophils (Bld) [#/Vol]0.1 10*3/uLNormal0.0-0.2The [facility] HospitalComment on above:Performed By: #### 05548 #### [facility] [place] [address] [facility] [place] [address], USABasophils/100 WBC (Bld)0.6 %Normal0.0-1.0The [facility] HospitalComment on above:Performed By: #### 90391 #### [facility] [place] [address] [facility] [place] [address], USAEosinophils (Bld) [#/Vol]0.1 10*3/uLNormal0.0-0.5The [facility] HospitalComment on above:Performed By: #### 62587 #### [facility] [place] [address] [facility] [place] [address], USAEosinophils/100 WBC (Bld)0.7 %Normal0.0-6.0The [facility] HospitalComment on above:Performed By: #### 86750 #### [facility] [place] [address] [place] [address], USAErythrocyte distribution width (RBC) [Ratio]14.7 %Normal 11.5-15.0The [facility] HospitalComment on above:Performed By: #### 65502 #### [facility] [place] [address] [place] [address], USAHematocrit (Bld) [Volume fraction]47.3 %Thfzbe65.0-50.0The [facility] HospitalComment on above:Performed By: #### 05986 #### [facility] [place] [address] [facility] [place] [address], USAHemoglobin (Bld) [Mass/Vol]15.5 g/dMVsylyd44.0-17.0The [facility] HospitalComment on above:Performed By: #### 84665 #### [facility] [place] [address] [facility] [place] [address], USAIMMATURE GRANS0.7 %Normal0.0-1.0The [facility] HospitalComment on above:Performed By: #### 72693 #### [facility] [place] [address] [facility] [place] [address], USALymphocytes (Bld) [#/Vol]0.6 10*3/uLLow1.2-4.0The [facility] HospitalComment on above:Performed By: #### 13798 #### [facility] [place] [address] [facility] [place] [address], USALymphocytes/100 WBC (Bld)4.3 %Low20.0-45.0The [facility] HospitalComment on above:Performed By: #### 70768 #### [facility] [place] [address] [facility] [place] [address], USAMCH (RBC) [Entitic mass]31.0 jbJsxnfl57.0-33.0The [facility] HospitalComment on above:Performed By: #### 52903 #### [facility] [place] [address] [facility] [place] [address], USAMCHC (RBC) [Mass/Vol]32.8 g/nXSpojpx95.0-35.0The [facility] HospitalComment on above:Performed By: #### 26495 #### [facility] [place] [address] [place] [address], TO[facility]ATCHI HEALTH CARE CENTERMCV (RBC) [Entitic vol]94.6 vYSkykke87.0-98.0The [facility] HospitalComment on above:Performed By: #### 41007 #### [facility] [place] [address] [place] [address], USAMonocytes (Bld) [#/Vol]1.0 10*3/uLNormal0.1-1.0The [facility] HospitalComment on above:Performed By: #### 03903 #### [facility] [place] [address] [place] [address], USAMONOS7.3 %Normal5.0-12.0The [facility] HospitalComment on above:Performed By: #### 90412 #### [facility] [place] [address] [place] [address], USANeutrophils/100 WBC (Bld)86.4 %High40.0-72.0The [facility] HospitalComment on above:Performed By: #### 07329 #### [facility] [place] [address] [place] [address], USANucleated RBC/100 WBC (Bld) [Ratio]0 %Normal0-0The [facility] HospitalComment on above:Performed By: #### 12208 #### [facility] [place] [address] [place] [address], USAPLAT [id number] 10*3/aKUbrlff550-147Ghc [facility] HospitalComment on above:Performed By: #### 91691 #### [facility] [place] [address] [place] [address], USARBC (Bld) [#/Vol]5.00 10*6/uLNormal4.20-5.70The [facility] HospitalComment on above:Performed By: #### 36900 #### [facility] [place] [address] [place] [address], USAWBC (Bld) [#/Vol]13.82 10*3/uLHigh4.00-10.60The [facility] HospitalComment on above:Performed By: #### 91398 #### [facility] [place] [address] [place] [address], USACOMP METABOLIC PANELon 68-90-5792Ywgruyq [Mass/Vol]4.7 g/dL Normal3.5-5.7The [facility] HospitalComment on above:Performed By: #### 36722, 95304, 16930, 57941, 35612 #### [facility] [place] [address] [place] [address], USAALKALINE NSUXUY87 IU/WZtokvx87-348Srg [facility] HospitalComment on above:Performed By: #### 66223, 00205, 95268, 96535, 25864 #### [facility] [place] [address] [place] [address], USAALT [Catalytic activity/Vol]27 U/LNormal7-52The [facility] HospitalComment on above:Performed By: #### 90942, 11522, 31093, 69161, 03794 #### [facility] [place] [address] [place] [address], USAAST [Catalytic activity/Vol]21 U/OBxbrxj82-99Cud [facility] HospitalComment on above:Performed By: #### 65837, 74440, 90610, 80702, 72050 #### [facility] [place] [address] [place] [address], USABilirubin [Mass/Vol]0.6 mg/dLNormal0.3-1.0The [facility] HospitalComment on above:Performed By: #### 87968, 59113, 36106, 36835, 13589 #### [facility] [place] [address] [place] [address], USACalcium [Mass/Vol]9.9 mg/dLNormal8.6-10.3The [facility] HospitalComment on above:Performed By: #### 64528, 18875, 85933, 27354, 32001 #### [facility] [place] [address] [place] [address], USAChloride [Moles/Vol]104 mmol/ZErndtc06-964Gsx [facility] HospitalComment on above:Performed By: #### 47317, 72158, 63615, 15259, 88169 #### [facility] [place] [address] [place] [address], USACO2 [Moles/Vol]25 mmol/GPuvjqf87-64Rkl [facility] HospitalComment on above:Performed By: #### 64313, 66487, 40687, 84648, 49008 #### [facility] [place] [address] [place] [address], USACreatinine [Mass/Vol]1.40 mg/dLHigh0.70-1.30The [facility] HospitalComment on above:Performed By: #### 69355, 54600, 69885, 23646, 16695 #### [facility] [place] [address] [place] [address], USAeGFR- non- Wpbaadif20 ml/min/1.73sq mAbnormal>60The [facility] HospitalComment on above:Performed By: #### 01197, 57889, 19740, 38170, 94563 #### [facility] [place] [address] [place] [address], USAGFR/1.73 sq M.predicted among blacks MDRD (S/P/Bld) [Vol rate/Area]mL/min/{1.73_m2}Normal>60The [facility] Comment on above:Performed By: #### 46408, 33000, 11652, 85418, 54410 #### [facility] [place] [address] [place] [address], USAGlucose [Mass/Vol]133 mg/yASimp16-469Bad [facility] HospitalComment on above:Performed By: #### 88788, 40775, 49834, 84942, 02147 #### [facility] [place] [address] [place] [address], USAPotassium [Moles/Vol]4.8 mmol/LNormal3.5-5.1The [facility] HospitalComment on above:Performed By: #### 78820, 90323, 39361, 61075, 35002 #### [facility] [place] [address] [facility] [place] [address], USAProtein [Mass/Vol]7.1 g/dLNormal6.0-8.3The [facility] HospitalComment on above:Performed By: #### 59652, 21017, 63001, 58000, 00411 #### [facility] [place] [address] [facility] [place] [address], USASodium [Moles/Vol]137 mmol/MRtxjbp053-296Nlf [facility] HospitalComment on above:Performed By: #### 49925, 63777, 97299, 97470, 92086 #### [facility] [place] [address] [facility] [place] [address], USAUrea nitrogen [Mass/Vol]19 mg/dLNormal7-25The [facility] HospitalComment on above:Performed By: #### 16784, 62375, 04815, 09893, 60573 #### [facility] [place] [address] [facility] [place] [address], USACT ABDOMEN AND PELVIS WO CONTRASTon [id number] ABDOMEN AND PELVIS WO CONTRASTUnOhioHealth [facility] Department of Radiology [address] [place] [phone] Patient Name: VISHAL DUKE : 1960 Sex: M Age: Race: White Pt. 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 No evidence of cyst rupture. Right [...] achievable. Electronically signed: José Herman. Transcribed by: [email or web address], User Resident: Electronically Signed by: JOSÉ HERMAN @ 12/01/2020 11:45 AMNormalThe [facility] HospitalComment on above:Order Comment: No: Do not add to previous draw CV'D BY I[facility] AT 1240LIPASE BLOODon [id number] Units/LCgffox99-02Cnb [facility] HospitalComment on above:Performed By: #### 98748, 59561, 92062, 90417, 92515 #### [facility] [place] [address] [place] [address], USAURINALYSIS REFLEXon 13-40-1463Yzcbnyiloq (U)SL CLOUDY AbnormalCLEARThe [facility] HospitalComment on above:Order Comment: Yes: Add to Previous draw if ablePerformed By: #### [id number], 65782, 19429, 49306, 19621 #### [facility] [place] [address] [place] [address], USABilirubin Ql (U)NegativeNormalNEGATIVEThe [facility] County HospitalComment on above:Order Comment: Yes: Add to Previous draw if ablePerformed By: #### [id number], 03620, 20288, 11100, 42250 #### [facility] [place] [address] [place] [address], USAColor (U)AMBERAbnormalYELLOWThe [facility] County HospitalComment on above:Order Comment: Yes: Add to Previous draw if able Performed By: #### 49149, 99908, 16307, 96954, 69886 #### [facility] [place] [address] [place] [address], USAEPISNONE SEENNormalFEW,OCC,NONE SEENThe [facility] County HospitalComment on above:Order Comment: Yes: Add to Previous draw if ablePerformed By: #### [id number], 47277, 99301, 54399, 88678 #### [facility] [place] [address] [place] [address], USAGlucose Ql (U)NegativeNormalNEGATIVEThe [facility] HospitalComaleda e. [facility] on above:Order Comment: Yes: Add to Previous draw if ablePerformed By: #### [id number], 96227, 49957, 54386, 51222 #### [facility] [place] [address] [place] [address], USAHemoglobin Ql (U)NegativeNormalNEGATIVEThe [facility] HospitalComment on above:Order Comment: Yes: Add to Previous draw if ablePerformed By: #### 34835, 76463, 11200, 62299, 39667 #### [facility] [place] [address] [place] [address], USAKETONENegativeNormalNEGATIVEThe [facility] County HospitalComment on above:Order Comment: Yes: Add to Previous draw if able Performed By: #### [id number], 04959, 82838, 49387, 09909 #### [facility] [place] [address] [place] [address], USALEUK ESTERNegativeNormalNEGATIVEThe [facility] County HospitalComment on above:Order Comment: Yes: Add to Previous draw if able Performed By: #### 46768, 14117, 63456, 98103, 02770 #### [facility] [facility] [place] [address] [place] [address], USAMUCUS THREADSMODAbnormalNONE SEENThe [facility] HospitalComaleda e[facility] on above:Order Comment: Yes: Add to Previous draw if able Performed By: #### 60188, 06726, 18656, 17747, 33250 #### [facility] [place] [address] [place] [address], USANitrite Ql (U)NegativeNormalNEGATIVEThe [facility] HospitalComaleda [facility] on above:Order Comment: Yes: Add to Previous draw if ablePerformed By: #### 91477, 41821, 73929, 07768, 39606 #### [facility] [place] [address] [place] [address], USApH (U)5.0 [pH]Normal5.0-8.0The [facility] HospitalComaleda [facility] on above:Order Comment: Yes: Add to Previous draw if able Performed By: #### 71253, 40027, 85238, 78547, 81386 #### [facility] [place] [address] [place] [address], USAProtein Ql (U)30 mg/dLAbnormalNEGATIVEThe [facility] HospitalComaleda [facility] on above:Order Comment: Yes: Add to Previous draw if ablePerformed By: #### 05459, 91593, 60348, 21701, 67446 #### [facility] [place] [address] [place] [address], USARBC0-2AbnormalNONE SEENThe [facility] HospitalCom[facility] on above:Order Comment: Yes: Add to Previous draw if ablePerformed By: #### 30242, 34590, 28025, 58312, 27859 #### [facility] [place] [address] [place] [address], USASPEC GRAV1.344Khvv9.015-1.020The [facility] HospitalComment on above:Order Comment: Yes: Add to Previous draw if able Performed By: #### 92779, 67846, 80194, 87244, 89565 #### [facility] [place] [address] [place] [address], USAWBC UA0-2AbnormalNONE SEENThe [facility] HospitalComment on above:Order Comment: Yes: Add to Previous draw if ablePerformed By: #### 19337, 67409, 34503, 43452, 11405 #### [facility] [place] [address] [place] [address], TO[facility]ALTH CARE CENTERPulmonary Functionon 66-71-6600Jrmplbdgb FunctionMR #: [id number] [facility] PT. Name: Vishal Duke Date: 11/27/2020 [...] Syed MD Date Trans: 11/29/2020 01:09 P/ DN_JN:[id number] cc: Rosa M Gonzales M.D. [address] [place] [address] [facility] [address]MxhnprIpkSelect Medical [facility], [facility]onARTERIAL BLOOD GAS W/COOXon 61-88-6036IJIM EXCESS3 mmol/HHzbuwo-9-7Phv [facility] HospitalComment on above:Performed By: #### 11597, 86162, 34277, 17901, 47141 #### [facility] [place] [address] [place] [address], USACOHB1.5 %Normal0.0-1.5The [facility] HospitalComment on above:Performed By: #### 29401, 93259, 04482, 06286, 83220 #### [facility] [place] [address] [place] [address], USADELIVERY SYSTEMSROOM AIRNoCorey HospitalComment on above:Performed By: #### 45613, 38191, 74828, 39341, 17850 #### [facility] [place] [address] [place] [address], UJYRCZ18 %NormalThe [facility] HospitalComment on above:Performed By: #### 14998, 21512, 78089, 21370, 35520 #### [facility] [place] [address] [place] [address], USAHCO3 (Bld) [Moles/Vol]26 mmol/HDqgcky78-87Dwl [facility] HospitalComment on above:Performed By: #### 40791, 32796, 76314, 44784, 32839 #### [facility] [place] [address] [place] [address], USAMETHB1.2 %Normal0.0-1.5The [facility] HospitalComment on above:Performed By: #### 50522, 03523, 43155, 94419, 03340 #### [facility] [place] [address] [place] [address], USAOxygen (Bld) [Partial pressure]93 mm[Hg]Dofuov67-465Dqa [facility] HospitalComment on above:Performed By: #### 26199, 35171, 79428, 22870, 34800 #### [facility] [place] [address] [place] [address], USAOxygen saturation in Blood95.6 %Nmgwho19.0-97.0The [facility] HospitalComment on above:Performed By: #### 26869, 42688, 10743, 41537, 05057 #### [facility] [place] [address] [place] [address], TPVFRI725 fiObDnoigj55-32Rxi [facility] HospitalComment on above:Performed By: #### 54291, 44154, 48414, 41978, 29918 #### [facility] [place] [address] [place] [address], USApH (Bld)7.48 [pH]High7.35-7.45The [facility] HospitalComment on above:Performed By: #### 56655, 47363, 26441, 71405, 01959 #### [facility] [place] [address] [place] [address], DGCKNW52.4 g/kTObaqjt05.0-16.3The [facility] HospitalComment on above:Performed By: #### 71933, 34087, 40907, 47200, 00198 #### [facility] [place] [address] [place] [address], USACREATININE BLOODon 36-47-2508Jawgcmirja [Mass/Vol]1.10 mg/dLNormal0.70-1.30The [facility] HospitalComment on above: Order Comment: No: Do not add to previous drawPerformed By: #### 91281, 35856, 64011, 90187, 79427 #### [facility] [place] [address] [facility] [place] [address], USAGFR/1.73 sq M.predicted among blacks MDRD (S/P/Bld) [Vol rate/Area]mL/min/{1.73_m2}Normal>60The [facility] Comment on above:Order Comment: No: Do not add to previous drawPerformed By: #### 79358, 58980, 51236, 77650, 16635 #### [facility] [place] [address] [facility] [place] [address], USAGFR/1.73 sq M.predicted among non-blacks MDRD (S/P/Bld) [Vol rate/Area]mL/min/{1.73_m2}Normal>60The [facility] Comment on above:Order Comment: No: Do not add to previous drawPerformed By: #### 00355, 40196, 84489, 03786, 37433 #### [facility] [place] [address] [facility] [place] [address], USACardiovascular Lab Reporton [id number] Lab ReportUnMercy Health St. [facility]al Med[facility] MR #: [id number] Department of Physician: Domo Mejia M.D. Division of Service Date: 10/29/2020 Cardiology Birthdate: 1960 Adult Cardiovascular Room #: 3AB [id number] [place] [address] Cardiovascular Laboratory Report FINAL IMPRESSIONS: 1. 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 6. Will consider elective revascularization of the right coronary artery should the patient continue to experience significant exertional angina; this will be a high risk procedure given tortuosity, calcification and ectasia. 7. Follow up with Dr. Chester in the [place] office in the next 1 to 2 [...] artery, failed attempt at deployment of a 6-Tristanian MynxGrip closure device. METHODS: After risks, benefits, and alternatives were explained, written informed consent was obtained. The patient was prepped and draped in usual sterile fashion over both groins. Using 1% lidocaine solution, local infiltration anesthesia was achieved. Using a micropuncture kit access to the right common femoral artery was obtained. A 6-Tristanian x 11 cm sheath was inserted without difficulty. Baseline femoral angiography was performed. Bilateral selective coronary angiography was performed using JL4 and JR4 catheters. Angiography of internal mammary artery graft was performed using a 6-Tristanian IM catheter. Limited angiography of the left subclavian was performed after retracting the catheter into the artery. After reviewing the images, it was elected to proceed with an interventional procedure. A 6-Tristanian XB3.5 guide catheter was advanced over J-wire [...] pressure to achieve optimal hemostasis once a 6-Tristanian MynxGrip closure device failed to deploy. Overall, [...] left internal mammar (more content not included)...NormalThe [facility] HospitalBASIC METABOLIC PANELon 35-69-9547Zagugyt [Mass/Vol]8.1 mg/dLLow8.6-10.3The [facility] HospitalComment on above:Order Comment: Yes: Add to Previous draw if able Performed By: #### 90186, 24815, 70561, 21582, 41691 #### [facility] [place] [address] [place] [address], USAChloride [Moles/Vol]103 mmol/DPysenl63-058Ihg [facility] HospitalComment on above:Order Comment: Yes: Add to Previous draw if ablePerformed By: #### 37661, 46517, 98902, 43197, 94998 #### [facility] [place] [address] [place] [address], USACO2 [Moles/Vol]25 mmol/OVbyqga02-99Ldr [facility] HospitalComment on above:Order Comment: Yes: Add to Previous draw if able Performed By: #### 35272, 02968, 26349, 09218, 51663 #### [facility] [place] [address] [place] [address], USACreatinine [Mass/Vol]0.88 mg/dLNormal0.70-1.30The [facility] HospitalComment on above:Order Comment: Yes: Add to Previous draw if ablePerformed By: #### 02280, 90382, 15289, 34636, 53121 #### [facility] [place] [address] [place] [address], USAGFR/1.73 sq M.predicted among blacks MDRD (S/P/Bld) [Vol rate/Area]mL/min/{1.73_m2}Normal>60The [facility] Comment on above:Order Comment: Yes: Add to Previous draw if ablePerformed By: #### 82549, 22060, 39663, 94638, 41808 #### [facility] [place] [address] [place] [address], USAGFR/1.73 sq M.predicted among non-blacks MDRD (S/P/Bld) [Vol rate/Area]mL/min/{1.73_m2}Normal>60The [facility] Comment on above:Order Comment: Yes: Add to Previous draw if ablePerformed By: #### 15642, 12116, 89248, 40362, 06012 #### [facility] [place] [address] [place] [address], USAGlucose [Mass/Vol]119 mg/gVOkxo71-687Aya [facility] HospitalComment on above:Order Comment: Yes: Add to Previous draw if ablePerformed By: #### 51336, 37519, 08989, 33749, 11336 #### [facility] [place] [address] [place] [address], USAPotassium [Moles/Vol]3.6 mmol/LNormal3.5-5.1The [facility] HospitalComment on above:Order Comment: Yes: Add to Previous draw if ablePerformed By: #### 02377, 30680, 07978, 26369, 20908 #### [facility] [place] [address] [place] [address], USASodium [Moles/Vol]133 mmol/JUgq215-559Wff [facility] HospitalComment on above:Order Comment: Yes: Add to Previous draw if ablePerformed By: #### 73665, 90463, 27316, 77164, 70799 #### [facility] [place] [address] [place] [address], USAUrea nitrogen [Mass/Vol]17 mg/dLNormal7-25The [facility] HospitalComment on above:Order Comment: Yes: Add to Previous draw if ablePerformed By: #### 19281, 71919, 45195, 37712, 52283 #### [facility] [place] [address] [place] [address], USACBC COMPLETE BLOOD COUNTon 52-28-6835Ssypolvjzik distribution width (RBC) [Ratio]13.3 %Zmcgtb02.5-15.0The [facility] HospitalComment on above:Order Comment: No: Do not add to previous draw Performed By: #### 45431 #### [facility] [place] [address] [place] [address], USAHematocrit (Bld) [Volume fraction]47.6 %Qsvqzz96.0-50.0The [facility] HospitalComment on above:Order Comment: No: Do not add to previous drawPerformed By: #### 71289 #### [facility] [place] [address] [place] [address], TO[facility]ATCHI [facility]ALTH CARE CENTERHemoglobin (Bld) [Mass/Vol]15.9 g/oBTynxwh58.0-17.0The [facility] HospitalComment on above:Order Comment: No: Do not add to previous drawPerformed By: #### 61761 #### [facility] [place] [address] [place] [address], [facility] – MCALESTERH (RBC) [Entitic mass]29.1 mwKozndg63.0-33.0The [facility] HospitalComment on above:Order Comment: No: Do not add to previous drawPerformed By: #### 76468 #### [facility] [place] [address] [place] [address], TO[facility] CARE CENTERMCHC (RBC) [Mass/Vol]33.4 g/bFQiuaga03.0-35.0The [facility] HospitalComment on above:Order Comment: No: Do not add to previous drawPerformed By: #### 18395 #### [facility] [place] [address] [place] [address], [facility] – MCALESTERV (RBC) [Entitic vol]87.2 qKXqzich96.0-98.0The [facility] HospitalComment on above:Order Comment: No: Do not add to previous drawPerformed By: #### 50772 #### [facility] [place] [address] [place] [address], USANucleated RBC/100 WBC (Bld) [Ratio]0 %Normal0-0The [facility] HospitalComment on above:Order Comment: No: Do not add to previous drawPerformed By: #### 10556 #### [facility] [place] [address] [place] [address], USAPLAT HOC412 10*3/jVRguoki190-355Ifz [facility] HospitalComment on above:Order Comment: No: Do not add to previous draw Performed By: #### 96529 #### [facility] [place] [address] [facility] [place] [address], USARBC (Bld) [#/Vol]5.46 10*6/uLNormal4.20-5.70The [facility] HospitalComment on above:Order Comment: No: Do not add to previous drawPerformed By: #### 77164 #### [facility] [place] [address] [facility] [place] [address], USAWBC (Bld) [#/Vol]10.07 10*3/uLNormal4.00-10.60The [facility] HospitalComment on above:Order Comment: No: Do not add to previous drawPerformed By: #### 81662 #### [facility] [place] [address] [facility] [place] [address], USAPORTABLE CHEST 1 VIEWon [id number] CHEST 1 VIEW [facility] Department of Radiology [address] [place] [id number] Patient Name: VISHAL DUKE : 1960 Sex: M Age: Race: White Pt. Location: [id number] Patient Status: I Ordered Date: 08/19/2020 6:00:00 [...] right. Electronically signed: Dariela Vincent. Transcribed by: [email or web address], User Resident: Electronically Signed by: DARIELA VINCENT @ 08/19/2020 10:20 AMNormalThe [facility] HospitalComment on above:Order Comment: No: Do not add to previous draw CV'D BY IMM [facility] AT 12[address]TACROLIMUSon [id number] (Bld) [Mass/Vol]8.5 ng/mLNormal5.0-20.0The [facility] HospitalComment on above:Order Comment: No: Do not add to previous drawResult Comment: The [employer] Tacrolimus assay is a delayed one-step immunoassay for the quantitative determination of tacrolimus in human whole blood using the chemiluminescent microparticle immunoassay (CMIA) technology with flexible assay protocols, referred to as Chemiflex.Performed By: #### 40148, 08288, 37633, 94596, 66309 #### [facility] [place] [address] [facility] [place] [address], USABASIC METABOLIC PANELon 13-98-3325Iwibhyw [Mass/Vol]8.8 mg/dLNormal8.6-10.3The [facility] HospitalComment on above:Order Comment: No: Do not add to previous draw Pt in bath room askme to come backPerformed By: #### 46090 #### [facility] [place] [address] [place] [address], USAChloride [Moles/Vol]100 mmol/IBejipr43-002Lyh [facility] HospitalComment on above:Order Comment: No: Do not add to previous draw Pt in bath room askme to come backPerformed By: #### 26348 #### [facility] [place] [address] [place] [address], USACO2 [Moles/Vol]28 mmol/SZkujhy89-36Bay [facility] HospitalComment on above:Order Comment: No: Do not add to previous draw Pt in bath room askme to come backPerformed By: #### 86241 #### [facility] [place] [address] [place] [address], USACreatinine [Mass/Vol]0.87 mg/dLNormal0.70-1.30The [facility] HospitalComment on above:Order Comment: No: Do not add to previous draw Pt in bath room askme to come backPerformed By: #### 41389 #### [facility] [place] [address] [place] [address], USAGFR/1.73 sq M.predicted among blacks MDRD (S/P/Bld) [Vol rate/Area]mL/min/{1.73_m2}Normal>60The [facility] Comment on above:Order Comment: No: Do not add to previous draw Pt in bath room askme to come backPerformed By: #### 70813 #### [facility] [place] [address] [place] [address], USAGFR/1.73 sq M.predicted among non-blacks MDRD (S/P/Bld) [Vol rate/Area]mL/min/{1.73_m2}Normal>60The [facility] Comment on above:Order Comment: No: Do not add to previous draw Pt in bath room askme to come backPerformed By: #### 39796 #### [facility] [place] [address] [place] [address], USAGlucose [Mass/Vol]110 mg/gUGuui84-064Qve [facility] HospitalComment on above:Order Comment: No: Do not add to previous draw Pt in bath room askme to come backPerformed By: #### 33164 #### [facility] [place] [address] [place] [address], USAPotassium [Moles/Vol]3.7 mmol/LNormal3.5-5.1The [facility] HospitalComment on above:Order Comment: No: Do not add to previous draw Pt in bath room askme to come backPerformed By: #### 59292 #### [facility] [place] [address] [place] [address], USASodium [Moles/Vol]137 mmol/LEszvmh212-291Akm [facility] HospitalComment on above:Order Comment: No: Do not add to previous draw Pt in bath room askme to come backPerformed By: #### 67852 #### [facility] [place] [address] [facility] [place] [address], USAUrea nitrogen [Mass/Vol]18 mg/dLNormal7-25The [facility] HospitalComment on above:Order Comment: No: Do not add to previous draw Pt in bath room askme to come backPerformed By: #### 51107 #### [facility] [place] [address] [facility] [place] [address], USATACROLIMUSon [id number] (Bld) [Mass/Vol]4.0 ng/mL Low5.0-20.0The [facility] HospitalComment on above:Order Comment: UnknownResult Comment: The [employer] Tacrolimus assay is a delayed one-step immunoassay for the quantitative determination of tacrolimus in human whole blood using the chemiluminescent microparticle immunoassay (CMIA) technology with flexible assay protocols, referred to as Chemiflex.Performed By: #### 88327, 25978, 81483, 32042, 92025 #### [facility] [place] [address] [facility] [place] [address], USABASIC METABOLIC PANELon 19-03-8411Ocbuqaz [Mass/Vol]8.3 mg/dLLow8.6-10.3The [facility] HospitalComment on above:Order Comment: Yes: Add to Previous draw if ablePerformed By: #### 36695, 50891, 55130, 75632, 47100 #### [facility] [place] [address] [place] [address], USAChloride [Moles/Vol]104 mmol/HZlzbik26-039Xdt [facility] HospitalComment on above:Order Comment: Yes: Add to Previous draw if ablePerformed By: #### 73071, 48061, 33570, 15945, 77111 #### [facility] [place] [address] [place] [address], USACO2 [Moles/Vol]24 mmol/QJqpkvh45-55Zbv [facility] HospitalComment on above:Order Comment: Yes: Add to Previous draw if able Performed By: #### 86039, 06692, 07087, 24638, 66997 #### [facility] [place] [address] [place] [address], USACreatinine [Mass/Vol]0.82 mg/dLNormal0.70-1.30The [facility] HospitalComment on above:Order Comment: Yes: Add to Previous draw if ablePerformed By: #### 02977, 77660, 77614, 41058, 79049 #### [facility] [place] [address] [place] [address], USAGFR/1.73 sq M.predicted among blacks MDRD (S/P/Bld) [Vol rate/Area]mL/min/{1.73_m2}Normal>60The [facility] Comment on above:Order Comment: Yes: Add to Previous draw if ablePerformed By: #### 84589, 40226, 25916, 72381, 69394 #### [facility] [place] [address] [place] [address], USAGFR/1.73 sq M.predicted among non-blacks MDRD (S/P/Bld) [Vol rate/Area]mL/min/{1.73_m2}Normal>60The [facility] Comment on above:Order Comment: Yes: Add to Previous draw if ablePerformed By: #### 10593, 19387, 69883, 85406, 32430 #### [facility] [place] [address] [place] [address], USAGlucose [Mass/Vol]114 mg/eOOraw53-303Dke [facility] HospitalComment on above:Order Comment: Yes: Add to Previous draw if ablePerformed By: #### 25043, 84902, 63716, 02245, 59912 #### [facility] [place] [address] [place] [address], USAPotassium [Moles/Vol]4.1 mmol/LNormal3.5-5.1The [facility] HospitalComment on above:Order Comment: Yes: Add to Previous draw if ablePerformed By: #### 45018, 33867, 53379, 78281, 44569 #### [facility] [place] [address] [place] [address], USASodium [Moles/Vol]135 mmol/GGgw251-687Tll [facility] HospitalComment on above:Order Comment: Yes: Add to Previous draw if ablePerformed By: #### 69326, 17224, 07789, 72203, 52598 #### [facility] [place] [address] [facility] [place] [address], USAUrea nitrogen [Mass/Vol]24 mg/dLNormal7-25The [facility] HospitalComment on above:Order Comment: Yes: Add to Previous draw if ablePerformed By: #### 31628, 44252, 60760, 47061, 17105 #### [facility] [place] [address] [facility] [place] [address], USAMAGNESIUM BLOODon 37-93-0584Kisqeummz [Mass/Vol]1.9 mg/dL Normal1.9-2.7The [facility] HospitalComment on above:Order Comment: No: Do not add to previous drawPerformed By: #### 36687, 62808, 87265 ####[facility] [place] [place] [address], [place] PHOSPHORUS BLOODon 03-73-5111Qgfdtrfqi [Mass/Vol]3.1 mg/dLNormal2.5-5.0The [facility] HospitalComment on above:Order Comment: No: Do not add to previous drawPerformed By: #### 53203, 51296, 71874 ####[facility] [place] [facility] [address], USATACROLIMUSon 91-84-2697Aozzsrajtc (Bld) [Mass/Vol]3.5 ng/mLLow5.0-20.0The [facility] HospitalComment on above:Order Comment: UnknownResult Comment: The [employer] Tacrolimus assay is a delayed one-step immunoassay for the quantitative determination of tacrolimus in human whole blood using the chemiluminescent microparticle immunoassay (CMIA) technology with flexible assay protocols, referred to as Chemiflex.Performed By: #### 51758, 54272, 78847, 10470, 71599 #### [facility] [place] [address] [facility] [place] [address], USAC REACTIVE PROTEINon [id number] [Mass/Vol]20.9 mg/LHigh 0.0-7.0The [facility] HospitalComment on above:Order Comment: Yes: Add to Previous draw if ablePerformed By: #### 50919, 27092, 62572, 68441, 67547 #### [facility] [place] [address] [facility] [place] [address], USACPKon 69-92-3661PC [Catalytic activity/Vol]38 U/LNormal 30-223The [facility] HospitalComment on above:Order Comment: UnknownPerformed By: #### 24586, 65286, 94458, 93636, 77177 #### [facility] [place] [address] [facility] [place] [address], USAD DIMER TESTon 37-99-2475O-DIMER TEST2.03 mcg/mL FEUHigh 0.27-0.49The [facility] HospitalComment on above:Order Comment: Yes: Add to Previous draw if ableResult Comment: D-Dimer values of less than 0.50 ug/ml (FEU) are considered to be a negative predictor of thrombosis. However, the D-Dimer result should be used in conjunction with pretest probability and should not be used alone to diagnose a thrombotic event.Performed By: #### 84091, 47123, 80809, 12539, 43306 #### [facility] [place] [address] [place] [address], USAFERRITINon 21-37-4357Tlzowdek [Mass/Vol]1412 ng/mLHigh 24-336The [facility] HospitalComment on above:Order Comment: UnknownPerformed By: #### 93542, 18444, 88225, 69328, 40864 #### [facility] [place] [address] [place] [address], USALDH BLOODon 58-06-7831CKM299 Units/JYlgp565-400Lbc [facility] HospitalComment on above:Order Comment: Unknown Performed By: #### 40260, 73667, 97181, 88811, 82641 #### [facility] [place] [address] [place] [address], USALIVER BATTERYon 31-10-7225Myjwwop [Mass/Vol]3.1 g/dLLow 3.5-5.7The [facility] HospitalComment on above:Order Comment: UnknownPerformed By: #### 77629, 26739, 78464, 36043, 32416 #### [facility] [place] [address] [place] [address], USAALKALINE [id number] IU/HTtwepc58-261Bsz [facility] HospitalComment on above:Order Comment: UnknownPerformed By: #### 71922, 59205, 40715, 03190, 27426 #### [facility] [place] [address] [place] [address], USAALT [Catalytic activity/Vol]108 U/LHigh7-52The [facility] HospitalComment on above:Order Comment: UnknownPerformed By: #### 13594, 95994, 30022, 61908, 25969 #### [facility] [place] [address] [place] [address], USAAST [Catalytic activity/Vol]54 U/CYesc34-83Bnn [facility] HospitalComment on above:Order Comment: UnknownPerformed By: #### 18331, 54802, 46516, 37267, 45124 #### [facility] [place] [address] [place] [address], USABilirubin [Mass/Vol]0.8 mg/dLNormal0.3-1.0The [facility] HospitalComment on above:Order Comment: UnknownPerformed By: #### 27048, 93624, 17862, 33587, 36741 #### [facility] [place] [address] [place] [address], USABilirubin.direct [Mass/Vol]0.2 mg/dLNormal0.0-0.2The [facility] HospitalComment on above:Order Comment: Unknown Performed By: #### 58549, 12232, 93762, 27818, 66341 #### [facility] [place] [address] [place] [address], USAProtein [Mass/Vol]5.9 g/dLLow6.0-8.3The [facility] HospitalComment on above:Order Comment: UnknownPerformed By: #### 96405, 54268, 84179, 05435, 88600 #### [facility] [place] [address] [place] [address], USATACROLIMUSon 54-68-5125Valirtzqfp (Bld) [Mass/Vol]4.4 ng/mL Low5.0-20.0The [facility] HospitalComment on above:Order Comment: Yes: Add to Previous draw if ableResult Comment: The SANDHU COTTON HEADER Tacrolimus assay is a delayed one-step immunoassay for the quantitative determination of tacrolimus in human whole blood using the chemiluminescent microparticle immunoassay (CMIA) technology with flexible assay protocols, referred to as Chemiflex.Performed By: #### 44313, 02089, 77631, 83752, 43482 #### [facility] [place] [address] [place] [address], USABASIC METABOLIC PANELon 34-14-6350Ckpzzft [Mass/Vol]8.2 mg/dLLow8.6-10.3The [facility] HospitalComment on above:Order Comment: No: Do not add to previous drawPerformed By: #### 91866, 61670, 37657, 57784, 59374 #### [facility] [place] [address] [place] [address], USAChloride [Moles/Vol]102 mmol/FRjtjlb33-425Czk [facility] HospitalComment on above:Order Comment: No: Do not add to previous drawPerformed By: #### 07479, 91800, 24492, 65445, 43405 #### [facility] [place] [address] [place] [address], USACO2 [Moles/Vol]19 mmol/PUus08-99Dob [facility] HospitalComment on above:Order Comment: No: Do not add to previous draw Performed By: #### 36817, 50398, 15485, 79177, 61488 #### [facility] [place] [address] [place] [address], USACreatinine [Mass/Vol]0.95 mg/dLNormal0.70-1.30The [facility] HospitalComment on above:Order Comment: No: Do not add to previous drawPerformed By: #### 61213, 48546, 91451, 02670, 79898 #### [facility] [place] [address] [place] [address], USAGFR/1.73 sq M.predicted among blacks MDRD (S/P/Bld) [Vol rate/Area]mL/min/{1.73_m2}Normal>60The [facility] Comment on above:Order Comment: No: Do not add to previous drawPerformed By: #### 69183, 87626, 50055, 69782, 63392 #### [facility] [place] [address] [place] [address], USAGFR/1.73 sq M.predicted among non-blacks MDRD (S/P/Bld) [Vol rate/Area]mL/min/{1.73_m2}Normal>60The [facility] Comment on above:Order Comment: No: Do not add to previous drawPerformed By: #### 74757, 26002, 99829, 15396, 99469 #### [facility] [place] [address] [place] [address], USAGlucose [Mass/Vol]253 mg/sOGapp71-095Hea [facility] HospitalComment on above:Order Comment: No: Do not add to previous drawPerformed By: #### 74637, 54443, 16808, 55796, 29935 #### [facility] [place] [address] [place] [address], USAPotassium [Moles/Vol]4.0 mmol/LNormal3.5-5.1The [facility] HospitalComment on above:Order Comment: No: Do not add to previous drawPerformed By: #### 32836, 77622, 98405, 61001, 27844 #### [facility] [place] [address] [place] [address], USASodium [Moles/Vol]130 mmol/EIdp907-669Ivz [facility] HospitalComment on above:Order Comment: No: Do not add to previous drawPerformed By: #### 38069, 93164, 57444, 68870, 33730 #### [facility] [place] [address] [place] [address], USAUrea nitrogen [Mass/Vol]34 mg/dLHigh7-25The [facility] HospitalComment on above:Order Comment: No: Do not add to previous drawPerformed By: #### 88372, 68736, 12358, 89020, 59763 #### [facility] [place] [address] [facility]. [place] [id number], USAC REACTIVE PROTEINon 48-99-2959SLR [Mass/Vol]19.7 mg/LHigh 0.0-7.0The [facility] HospitalComment on above:Order Comment: No: Do not add to previous drawPerformed By: #### 71944 #### [facility] [place] [address] [facility] [place] [address], USACOMP METABOLIC PANELon 08-52-9167Gfezias [Mass/Vol]3.0 g/dL Low3.5-5.7The [facility] HospitalComment on above:Order Comment: This order is a replacement of the rejected order with accession [id number].Performed By: #### 23759, 97225, 88049, 88665, 07443 #### [facility] [place] [address] [facility] [place] [address], USAALKALINE [id number] IU/ARzgcpr85-419Jvo [facility] HospitalComment on above:Order Comment: This order is a replacement of the rejected order with accession [id number].Performed By: #### 01361, 13987, 57295, 30048, 73356 #### [facility] [place] [address] [facility] [place] [address], USAALT [Catalytic activity/Vol]80 U/LHigh7-52The [facility] HospitalComment on above:Order Comment: This order is a replacement of the rejected order with accession [id number].Performed By: #### 12003, 88460, 98475, 81930, 07938 #### [facility] [place] [address] [facility] [place] [address], USAAST [Catalytic activity/Vol]52 U/MDgwd21-40Gey [facility] HospitalComment on above:Order Comment: This order is a replacement of the rejected order with accession [id number].Performed By: #### 56226, 89868, 37429, 71700, 44178 #### [facility] [place] [address] [place] [address], USABilirubin [Mass/Vol]0.7 mg/dLNormal0.3-1.0The [facility] HospitalComment on above:Order Comment: This order is a replacement of the rejected order with accession [id number].Performed By: #### 35234, 42508, 04303, 16308, 72288 #### [facility] [place] [address] [place] [address], USACalcium [Mass/Vol]8.1 mg/dLLow8.6-10.3The [facility] HospitalComment on above:Order Comment: This order is a replacement of the rejected order with accession [id number].Performed By: #### 53499, 70506, 21644, 93299, 36236 #### [facility] [place] [address] [place] [address], USAChloride [Moles/Vol]102 mmol/CCduxgz72-180Vyc [facility] HospitalComment on above:Order Comment: This order is a replacement of the rejected order with accession [id number].Performed By: #### 27971, 49378, 64288, 89716, 66078 #### [facility] [place] [address] [place] [address], USACO2 [Moles/Vol]24 mmol/WGudufq83-49Xnl [facility] HospitalComment on above:Order Comment: This order is a replacement of the rejected order with accession [id number].Performed By: #### 90154, 20475, 72807, 37322, 41223 #### [facility] [place] [address] [place] [address], USACreatinine [Mass/Vol]0.98 mg/dLNormal0.70-1.30The [facility] HospitalComment on above:Order Comment: This order is a replacement of the rejected order with accession [id number].Performed By: #### 15056, 74161, 42871, 14247, 05345 #### [facility] [place] [address] [place] [address], USAGFR/1.73 sq M.predicted among blacks MDRD (S/P/Bld) [Vol rate/Area]mL/min/{1.73_m2}Normal>60The [facility] Comment on above:Order Comment: This order is a replacement of the rejected order with accession [id number].Performed By: #### 95062, 67032, 17943, 12506, 47757 #### [facility] [place] [address] [place] [address], USAGFR/1.73 sq M.predicted among non-blacks MDRD (S/P/Bld) [Vol rate/Area]mL/min/{1.73_m2}Normal>60The [facility] Comment on above:Order Comment: This order is a replacement of the rejected order with accession [id number].Performed By: #### 95141, 39842, 43197, 45870, 48171 #### [facility] [place] [address] [place] [address], USAGlucose [Mass/Vol]141 mg/rIPpqv23-420Suc [facility] HospitalComment on above:Order Comment: This order is a replacement of the rejected order with accession [id number].Performed By: #### 38162, 49491, 77671, 73867, 20748 #### [facility] [place] [address] [place] [address], USAPotassium [Moles/Vol]4.2 mmol/LNormal3.5-5.1The [facility] HospitalComment on above:Order Comment: This order is a replacement of the rejected order with accession [id number].Performed By: #### 93504, 29786, 54514, 45750, 78863 #### [facility] [place] [address] [place] [address], USAProtein [Mass/Vol]5.6 g/dLLow6.0-8.3The [facility] HospitalComment on above:Order Comment: This order is a replacement of the rejected order with accession [id number].Performed By: #### 78566, 46720, 85777, 18864, 64071 #### [facility] [place] [address] [place] [address], USASodium [Moles/Vol]132 mmol/HRum138-534Aly [facility] HospitalComment on above:Order Comment: This order is a replacement of the rejected order with accession [id number].Performed By: #### 06826, 67240, 76601, 88593, 51307 #### [facility] [place] [address] [place] [address], USAUrea nitrogen [Mass/Vol]32 mg/dLHigh7-25The [facility] HospitalComment on above:Order Comment: This order is a replacement of the rejected order with accession [id number].Performed By: #### 40357, 20137, 71693, 10143, 72974 #### [facility] [place] [address] [place] [address], USACPKon 25-69-8078BE [Catalytic activity/Vol]47 U/LNormal The [facility] HospitalComment on above:Order Comment: No: Do not add to previous drawPerformed By: #### 62033, 23471, 28332, 41876, 37623 #### [facility] [place] [address] [place] [address], USAD DIMER TESTon 32-36-7808O-DIMER TEST2.41 mcg/mL FEUHigh 0.27-0.49The [facility] HospitalComment on above:Order Comment: No: Do not add to previous drawResult Comment: D-Dimer values of less than 0.50 ug/ml (FEU) are considered to be a negative predictor of thrombosis. However, the D-Dimer result should be used in conjunction with pretest probability and should not be used alone to diagnose a thrombotic event.Performed By: #### 35694 #### [facility] [place] [address] [place] [address], USAFERRITINon 41-63-2001Lkaepwoi [Mass/Vol]836 ng/hYVimq92-881 The [facility] HospitalComment on above:Order Comment: No: Do not add to previous drawPerformed By: #### 95453, 49309, 49053, 13990, 02342 #### [facility] [place] [address] [place] [address], USALDH BLOODon 24-06-0137LXT380 Units/FJxzp944-307Zwe [facility] HospitalComment on above:Order Comment: No: Do not add to previous drawPerformed By: #### 95409, 33793, 38504, 88104, 41657 #### [facility] [place] [address] [place] [address], USALIVER BATTERYon 30-87-8476Ucxrggu [Mass/Vol]2.9 g/dLLow 3.5-5.7The [facility] HospitalComment on above:Order Comment: No: Do not add to previous drawPerformed By: #### 41450, 09951, 40066, 15508, 57844 #### [facility] [place] [address] [place] [address], USAALKALINE [id number] IU/ACtyayj68-365Iqz [facility] HospitalComment on above:Order Comment: No: Do not add to previous draw Performed By: #### 64492, 33140, 72173, 67825, 91270 #### [facility] [place] [address] [place] [address], USAALT [Catalytic activity/Vol]83 U/LHigh7-52The [facility] HospitalComment on above:Order Comment: No: Do not add to previous drawPerformed By: #### 39686, 92772, 67231, 07846, 22871 #### [facility] [place] [address] [place] [address], USAAST [Catalytic activity/Vol]46 U/LFizv10-99Kjb [facility] HospitalComment on above:Order Comment: No: Do not add to previous drawPerformed By: #### 57272, 39455, 67788, 20706, 05620 #### [facility] [place] [address] [place] [address], USABilirubin [Mass/Vol]0.6 mg/dLNormal0.3-1.0The [facility] HospitalComment on above:Order Comment: No: Do not add to previous drawPerformed By: #### 96458, 22240, 34461, 95933, 70756 #### [facility] [place] [address] [place] [address], USABilirubin.direct [Mass/Vol]0.2 mg/dLNormal0.0-0.2The [facility] HospitalComment on above:Order Comment: No: Do not add to previous drawPerformed By: #### 34021, 75241, 06761, 95198, 59463 #### [facility] [place] [address] [place] [address], USAProtein [Mass/Vol]5.3 g/dLLow6.0-8.3The [facility] HospitalComment on above:Order Comment: No: Do not add to previous drawPerformed By: #### 83083, 08590, 30768, 68080, 69336 #### [facility] [place] [address] [place] [address], USAOSMOLALITY BLOODon 72-15-2348Nzbimxibxt [Osmolality]291 mosm/dgIztlbp591-623Usn [facility] HospitalComment on above: Order Comment: No: Do not add to previous drawPerformed By: #### 61425, 17216, 08954, 72365, 78111 #### [facility] [place] [address] [place] [address], USATACROLIMUSon 60-65-7497Solgajfknr (Bld) [Mass/Vol]9.7 ng/mL Normal5.0-20.0The [facility] HospitalComment on above:Order Comment: Yes: Add to Previous draw if ableResult Comment: The SANDHU COTTON HEADER Tacrolimus assay is a delayed one-step immunoassay for the quantitative determination of tacrolimus in human whole blood using the chemiluminescent microparticle immunoassay (CMIA) technology with flexible assay protocols, referred to as Chemiflex.Performed By: #### 98280, 62920, 63112, 35984, 16079 #### [facility] [place] [address] [facility] [place] [address], USATacrolimus (Bld) [Mass/Vol]5.7 ng/mLNormal5.0-20.0The [facility] HospitalComment on above:Order Comment: Yes: Add to Previous draw if ableResult Comment: The SANDHU COTTON HEADER Tacrolimus assay is a delayed one-step immunoassay for the quantitative determination of tacrolimus in human whole blood using the chemiluminescent microparticle immunoassay (CMIA) technology with flexible assay protocols, referred to as Chemiflex.Performed By: #### 22847, 95291, 68390, 18943, 55936 #### [facility] [place] [address] [facility] [place] [address], USACOMP METABOLIC PANELon 81-73-8346Vdqplgo [Mass/Vol]3.2 g/dL Low3.5-5.7The [facility] HospitalComment on above:Order Comment: No: Do not add to previous drawPerformed By: #### 90539, 97836, 25174, 58590, 07914 #### [facility] [place] [address] [facility] [place] [address], USAALKALINE [id number] IU/GHyqqqg65-909Agg [facility] HospitalComment on above:Order Comment: No: Do not add to previous draw Performed By: #### 46841, 38968, 43855, 05074, 24040 #### [facility] [place] [address] [facility] [place] [address], USAALT [Catalytic activity/Vol]69 U/LHigh7-52The [facility] HospitalComment on above:Order Comment: No: Do not add to previous drawPerformed By: #### 25051, 12182, 21822, 58550, 28179 #### [facility] [place] [address] [place] [address], USAAST [Catalytic activity/Vol]54 U/RGyll33-40Eqv [facility] HospitalComment on above:Order Comment: No: Do not add to previous drawPerformed By: #### 61440, 89591, 47642, 19211, 53010 #### [facility] [place] [address] [place] [address], USABilirubin [Mass/Vol]1.0 mg/dLNormal0.3-1.0The [facility] HospitalComment on above:Order Comment: No: Do not add to previous drawPerformed By: #### 63835, 77762, 19137, 24062, 32441 #### [facility] [place] [address] [place] [address], USACalcium [Mass/Vol]8.8 mg/dLNormal8.6-10.3The [facility] HospitalComment on above:Order Comment: No: Do not add to previous drawPerformed By: #### 44595, 38327, 33886, 56621, 54412 #### [facility] [place] [address] [place] [address], USAChloride [Moles/Vol]97 mmol/KUqb35-698Qgp [facility] HospitalComment on above:Order Comment: No: Do not add to previous drawPerformed By: #### 32024, 89050, 87948, 51750, 93214 #### [facility] [place] [address] [place] [address], USACO2 [Moles/Vol]24 mmol/OHrlgrf21-45Lnl [facility] HospitalComment on above:Order Comment: No: Do not add to previous draw Performed By: #### 11780, 99265, 19387, 42257, 45020 #### [facility] [place] [address] [place] [address], USACreatinine [Mass/Vol]0.82 mg/dLNormal0.70-1.30The [facility] HospitalComment on above:Order Comment: No: Do not add to previous drawPerformed By: #### 32758, 49614, 71273, 49482, 13850 #### [facility] [place] [address] [place] [address], USAGFR/1.73 sq M.predicted among blacks MDRD (S/P/Bld) [Vol rate/Area]mL/min/{1.73_m2}Normal>60The [facility] Comment on above:Order Comment: No: Do not add to previous drawPerformed By: #### 36407, 59620, 62418, 98428, 93558 #### [facility] [place] [address] [place] [address], USAGFR/1.73 sq M.predicted among non-blacks MDRD (S/P/Bld) [Vol rate/Area]mL/min/{1.73_m2}Normal>60The [facility] Comment on above:Order Comment: No: Do not add to previous drawPerformed By: #### 23803, 77868, 74008, 56388, 06017 #### [facility] [place] [address] [place] [address], USAGlucose [Mass/Vol]154 mg/lBNrgg00-836Umg [facility] HospitalComment on above:Order Comment: No: Do not add to previous drawPerformed By: #### 90521, 14263, 83320, 43223, 18209 #### [facility] [place] [address] [place] [address], USAPotassium [Moles/Vol]4.9 mmol/LNormal3.5-5.1The [facility] HospitalComment on above:Order Comment: No: Do not add to previous drawPerformed By: #### 53380, 10071, 97929, 41597, 69049 #### [facility] [place] [address] [place] [address], USAProtein [Mass/Vol]6.1 g/dLNormal6.0-8.3The [facility] HospitalComment on above:Order Comment: No: Do not add to previous drawPerformed By: #### 79659, 05609, 74496, 13701, 63218 #### [facility] [place] [address] [place] [address], USASodium [Moles/Vol]128 mmol/VXjh515-296Yuh [facility] HospitalComment on above:Order Comment: No: Do not add to previous drawPerformed By: #### 84691, 02983, 77487, 71428, 94493 #### [facility] [place] [address] [place] [address], USAUrea nitrogen [Mass/Vol]32 mg/dLHigh7-25The [facility] HospitalComment on above:Order Comment: No: Do not add to previous drawPerformed By: #### 89181, 62293, 24805, 11267, 97026 #### [facility] [place] [address] [place] [address], USAOSMOLALITY URINEon 35-12-2390VGXATDSFLH486 mOsm/kgNormal 50-1400The [facility] HospitalComment on above:Order Comment: No: Do not add to previous drawPerformed By: #### 80522, 56458, 04695, 27302, 86448 #### [facility] [place] [address] [place] [address], USASODIUM URINE RANDOMon 08-63-7578Qynhrc (U) [Moles/Vol]51 mmol/LNormalThe Clermont County HospitalComment on above:Order Comment: No: Do not add to previous drawResult Comment: There are no established reference values for random urine specimensPerformed By: #### [id number], [id number], 62842, 28295, 13890 #### [facility] [place] [address] [place] [address], USATACROLIMUSon [phone] (Bld) [Mass/Vol]5.2 ng/mL Normal5.0-20.0The [facility] HospitalComment on above:Order Comment: UnknownResult Comment: The [employer] Tacrolimus assay is a delayed one-step immunoassay for the quantitative determination of tacrolimus in human whole blood using the chemiluminescent microparticle immunoassay (CMIA) technology with flexible assay protocols, referred to as Chemiflex.Performed By: #### [id number] ####[facility] [facility] [place] [place] [address], [place] BASIC METABOLIC PANELon 29-35-9091Tarjjtb [Mass/Vol]8.6 mg/dLNormal8.6-10.3The [facility] HospitalComment on above:Order Comment: No: Do not add to previous drawPerformed By: #### 70437, 49479, 18311, 67581, 16663 #### [facility] [place] [address] [place] [address], USAChloride [Moles/Vol]97 mmol/WTsr44-413Omz [facility] HospitalComment on above:Order Comment: No: Do not add to previous drawPerformed By: #### 71980, 34706, 68107, 27873, 75391 #### [facility] [place] [address] [place] [address], USACO2 [Moles/Vol]23 mmol/QHatmhs35-36Bkq [facility] HospitalComment on above:Order Comment: No: Do not add to previous draw Performed By: #### 05240, 00131, 49387, 83499, 00287 #### [facility] [place] [address] [place] [address], USACreatinine [Mass/Vol]0.82 mg/dLNormal0.70-1.30The [facility] HospitalComment on above:Order Comment: No: Do not add to previous drawPerformed By: #### 18163, 86132, 99319, 42493, 11824 #### [facility] [place] [address] [place] [address], USAGFR/1.73 sq M.predicted among blacks MDRD (S/P/Bld) [Vol rate/Area]mL/min/{1.73_m2}Normal>60The [facility] Comment on above:Order Comment: No: Do not add to previous drawPerformed By: #### 32044, 18632, 37864, 30060, 19262 #### [facility] [place] [address] [place] [address], USAGFR/1.73 sq M.predicted among non-blacks MDRD (S/P/Bld) [Vol rate/Area]mL/min/{1.73_m2}Normal>60The [facility] Comment on above:Order Comment: No: Do not add to previous drawPerformed By: #### 51524, 42301, 18921, 37546, 65142 #### [facility] [place] [address] [place] [address], USAGlucose [Mass/Vol]166 mg/cATnut93-561Mpd [facility] HospitalComment on above:Order Comment: No: Do not add to previous drawPerformed By: #### 49827, 14502, 53351, 94324, 32693 #### [facility] [place] [address] [place] [address], USAPotassium [Moles/Vol]4.9 mmol/LNormal3.5-5.1The [facility] HospitalComment on above:Order Comment: No: Do not add to previous drawPerformed By: #### 85853, 75660, 27247, 10303, 86809 #### [facility] [place] [address] [place] [address], USASodium [Moles/Vol]127 mmol/DBbb904-753Yum [facility] HospitalComment on above:Order Comment: No: Do not add to previous drawPerformed By: #### 79515, 11247, 54512, 15205, 92242 #### [facility] [place] [address] [place] [address], USAUrea nitrogen [Mass/Vol]33 mg/dLHigh7-25The [facility] HospitalComment on above:Order Comment: No: Do not add to previous drawPerformed By: #### 95424, 11768, 58570, 42738, 34713 #### [facility] [place] [address] [place] [address], USACREATININE URINE RANDOMon 55-03-5570Zfuypfmoxi (U) [Mass/Vol]59.0 mg/dLNormalThe [facility] HospitalComment on above:Order Comment: Yes: Add to Previous draw if ableResult Comment: There are no established reference values for random urine specimensPerformed By: #### 81292, 01709, 50366, 25873, 10715 #### [facility] [place] [address] [facility] [place] [address], USAMAGNESIUM BLOODon 50-74-9423Kcnjpjqzw [Mass/Vol]1.7 mg/dL Low1.9-2.7The [facility] HospitalComment on above:Order Comment: No: Do not add to previous drawPerformed By: #### 20132, 50765, 32086, 43028, 76992 #### [facility] [place] [address] [facility] [place] [address], USASODIUM URINE RANDOMon 71-52-2426Mfivrr (U) [Moles/Vol]90 mmol/LNormalThe [facility] HospitalComment on above:Order Comment: Yes: Add to Previous draw if ableResult Comment: There are no established reference values for random urine specimensPerformed By: #### 93236, 65266, 11058, 70555, 96504 #### [facility] [place] [address] [facility] [place] [address], USATACROLIMUSon 28-66-7600Clgplvqbqk (Bld) [Mass/Vol]6.3 ng/mL Normal5.0-20.0The [facility] HospitalComment on above:Order Comment: Yes: Add to Previous draw if ableResult Comment: The [employer] Tacrolimus assay is a delayed one-step immunoassay for the quantitative determination of tacrolimus in human whole blood using the chemiluminescent microparticle immunoassay (CMIA) technology with flexible assay protocols, referred to as Chemiflex.Performed By: #### 40083, 45376, 14455, 70136, 22394 #### [facility] [place] [address] [place] [address], USABASIC METABOLIC PANELon 40-32-9916Fhapqve [Mass/Vol]8.3 mg/dLLow8.6-10.3The [facility] HospitalComment on above:Order Comment: Yes: Add to Previous draw if ablePerformed By: #### 58434, 52760, 65812, 99767, 03347 #### [facility] [place] [address] [place] [address], USAChloride [Moles/Vol]102 mmol/FFalnvi43-209Ieq [facility] HospitalComment on above:Order Comment: Yes: Add to Previous draw if ablePerformed By: #### 62838, 42196, 12206, 38878, 63975 #### [facility] [place] [address] [place] [address], USACO2 [Moles/Vol]20 mmol/PFkn34-64Miz [facility] HospitalComment on above:Order Comment: Yes: Add to Previous draw if able Performed By: #### 54096, 34564, 47714, 69286, 60562 #### [facility] [place] [address] [place] [address], USACreatinine [Mass/Vol]0.78 mg/dLNormal0.70-1.30The [facility] HospitalComment on above:Order Comment: Yes: Add to Previous draw if ablePerformed By: #### 97146, 56443, 80926, 23340, 00832 #### [facility] [place] [address] [place] [address], USAGFR/1.73 sq M.predicted among blacks MDRD (S/P/Bld) [Vol rate/Area]mL/min/{1.73_m2}Normal>60The [facility] Comment on above:Order Comment: Yes: Add to Previous draw if ablePerformed By: #### 89302, 30751, 32625, 23974, 63272 #### [facility] [place] [address] [place] [address], USAGFR/1.73 sq M.predicted among non-blacks MDRD (S/P/Bld) [Vol rate/Area]mL/min/{1.73_m2}Normal>60The [facility] Comment on above:Order Comment: Yes: Add to Previous draw if ablePerformed By: #### 29864, 79435, 44234, 01479, 46930 #### [facility] [place] [address] [place] [address], USAGlucose [Mass/Vol]199 mg/cTGsin34-421Spv [facility] HospitalComment on above:Order Comment: Yes: Add to Previous draw if ablePerformed By: #### 76716, 90422, 35747, 66266, 55838 #### [facility] [place] [address] [place] [address], USAPotassium [Moles/Vol]4.9 mmol/LNormal3.5-5.1The [facility] HospitalComment on above:Order Comment: Yes: Add to Previous draw if ablePerformed By: #### 90560, 26139, 12152, 11907, 31607 #### [facility] [place] [address] [place] [address], USASodium [Moles/Vol]129 mmol/LYwg215-241Glp [facility] HospitalComment on above:Order Comment: Yes: Add to Previous draw if ablePerformed By: #### 13013, 09491, 31502, 97790, 91636 #### [facility] [place] [address] [place] [address], USAUrea nitrogen [Mass/Vol]33 mg/dLHigh7-25The [facility] HospitalComment on above:Order Comment: Yes: Add to Previous draw if ablePerformed By: #### 99984, 38515, 22415, 01790, 42372 #### [facility] [place] [address] [place] [address], USACBC COMPLETE BLOOD COUNTon 50-08-1581Gdpkemxhsxo distribution width (RBC) [Ratio]12.9 %Mbeoyx47.5-15.0The [facility] HospitalComment on above:Order Comment: No: Do not add to previous draw Performed By: #### 58237 #### [facility] [place] [address] [place] [address], USAHematocrit (Bld) [Volume fraction]45.9 %Krjvmc92.0-50.0The [facility] HospitalComment on above:Order Comment: No: Do not add to previous drawPerformed By: #### 01781 #### [facility] [place] [address] [place] [address], USAHemoglobin (Bld) [Mass/Vol]15.3 g/zUUosclx64.0-17.0The [facility] HospitalComment on above:Order Comment: No: Do not add to previous drawPerformed By: #### 06280 #### [facility] [place] [address] [place] [address], [facility]STERH (RBC) [Entitic mass]29.3 reVebugq65.0-33.0The [facility] HospitalComment on above:Order Comment: No: Do not add to previous drawPerformed By: #### 99324 #### [facility] [place] [address] [place] [address], [facility]ENTERMCHC (RBC) [Mass/Vol]33.3 g/tVHtggrv53.0-35.0The [facility] HospitalComment on above:Order Comment: No: Do not add to previous drawPerformed By: #### 93177 #### [facility] [place] [address] [place] [address], [facility] CENTERMCV (RBC) [Entitic vol]87.8 hTFbuuju77.0-98.0The [facility] HospitalComment on above:Order Comment: No: Do not add to previous drawPerformed By: #### 41546 #### [facility] [place] [address] [place] [address], USANucleated RBC/100 WBC (Bld) [Ratio]0 %Normal0-0The [facility] HospitalComment on above:Order Comment: No: Do not add to previous drawPerformed By: #### 40758 #### [facility] [place] [address] [place] [address], USAPLAT [id number] 10*3/xGSmtx810-243Mpl [facility] HospitalComment on above:Order Comment: No: Do not add to previous draw Performed By: #### 79840 #### [facility] [place] [address] [place] [address], USARBC (Bld) [#/Vol]5.23 10*6/uLNormal4.20-5.70The [facility] HospitalComment on above:Order Comment: No: Do not add to previous drawPerformed By: #### 59712 #### [facility] [place] [address] [place] [address], USAWBC (Bld) [#/Vol]7.77 10*3/uLNormal4.00-10.60The [facility] HospitalComment on above:Order Comment: No: Do not add to previous drawPerformed By: #### 90816 #### [facility] [place] [address] [place] [address], USAMAGNESIUM BLOODon 41-43-3961Jfapeslzc [Mass/Vol]1.7 mg/dL Low1.9-2.7The [facility] HospitalComment on above:Order Comment: Yes: Add to Previous draw if ablePerformed By: #### 71182, 61885, 35210, 91441, 69208 #### [address] [place] [address], USAPORTABLE CHEST 1 VIEWon 03-54-4031RFOFQYOQ CHEST 1 VIEW [facility] Department of Radiology [address] [place] [id number] Patient Name: VISHAL DUKE : 1960 Sex: M Age: Race: White Pt. Location: [id number] Patient Status: I Ordered Date: 08/10/2020 7:40:00 [...] pneumothorax. Electronically signed: Brett Mc. Transcribed by: [email or web address], User Resident: Electronically Signed by: BRETT MC @ 08/10/2020 10:10 AMNormalThe [facility] HospitalComment on above:Order Comment: No: Do not add to previous draw CV'D BY [facility] AT 1240TACROLIMUSon 89-28-9478Dzksvbpban (Bld) [Mass/Vol]11.2 ng/mLNormal5.0-20.0The [facility] HospitalComment on above:Order Comment: No: Do not add to previous drawResult Comment: The [employer] Tacrolimus assay is a delayed one-step immunoassay for the quantitative determination of tacrolimus in human whole blood using the chemiluminescent microparticle immunoassay (CMIA) technology with flexible assay protocols, referred to as Chemiflex.Performed By: #### 73755, 91350, 31289, 09082, 91956 #### [facility] [place] [address] [facility] [place] [address], USATACROLIMUSon 24-63-2499Tzzmdctmxw (Bld) [Mass/Vol]11.0 ng/mLNormal5.0-20.0The [facility] HospitalComment on above:Order Comment: Yes: Add to Previous draw if ableResult Comment: The [employer] Tacrolimus assay is a delayed one-step immunoassay for the quantitative determination of tacrolimus in human whole blood using the chemiluminescent microparticle immunoassay (CMIA) technology with flexible assay protocols, referred to as Chemiflex.Performed By: #### 02839, 54257, 39433, 81262, 61538 #### [facility] [place] [address] [facility] [place] [address], USATROPONIN-Ion 60-96-5102Pupgjtvc I.cardiac [Mass/Vol]5.31 ng/mLCritically high0.00-0.04The [facility] HospitalComment on above:Order Comment: Yes: Add to Previous draw if ableResult Comment: M-PREVIOUS CRITICAL RESULT REFERENCE RANGES: 0.00 - 0.04 ng/ml NORMAL 0.05 - 0.50 ng/ml INDETERMINATE > 0.50 ng/ml CONSISTENT WITH AN M.I.Performed By: #### 12348, 73411, 97213, 07139, 32219 #### [facility] [place] [address] [place] [address], USAUFH HEPARIN ASSAYon 31-94-7395RPCFXHASAYRJZD HEPARIN<0.10 Critically low0.30-0.70The [facility] HospitalComment on above: Result Comment: Rivaroxaban and Apixaban will interfere with the anti Xa assay used to monitor UFH and LMWH. Results called. Accurately read back by Luiz Shaffer RN at 0709Performed By: #### 74054 ####[facility] [place] [place] [address], USACOMP METABOLIC PANELon 51-18-0156Bpgzloe [Mass/Vol]2.8 g/dLLow3.5-5.7The [facility] HospitalComment on above:Order Comment: Yes: Add to Previous draw if ablePerformed By: #### 35937, 27268, 71575, 38754, 11557 #### [facility] [place] [address] [facility] [place] [address], USAALKALINE WTAKCY82 IU/GNagnpq07-206Fbg [facility] HospitalComment on above:Order Comment: Yes: Add to Previous draw if able Performed By: #### 04634, 11192, 16501, 51978, 86617 #### [facility] [place] [address] [facility] [place] [address], USAALT [Catalytic activity/Vol]30 U/LNormal7-52The [facility] HospitalComment on above:Order Comment: Yes: Add to Previous draw if ablePerformed By: #### 86436, 45529, 78864, 38569, 96899 #### [facility] [place] [address] [place] [address], USAAST [Catalytic activity/Vol]48 U/WFiyb38-35Lym [facility] HospitalComment on above:Order Comment: Yes: Add to Previous draw if ablePerformed By: #### 98363, 83059, 78674, 83377, 38492 #### [facility] [place] [address] [place] [address], USABilirubin [Mass/Vol]0.9 mg/dLNormal0.3-1.0The [facility] HospitalComment on above:Order Comment: Yes: Add to Previous draw if ablePerformed By: #### 10665, 35934, 23962, 41080, 05280 #### [facility] [place] [address] [place] [address], USACalcium [Mass/Vol]8.1 mg/dLLow8.6-10.3The [facility] HospitalComment on above:Order Comment: Yes: Add to Previous draw if ablePerformed By: #### 68251, 20891, 10009, 55192, 08216 #### [facility] [place] [address] [place] [address], USAChloride [Moles/Vol]104 mmol/ARfsjcb78-759Lqd [facility] HospitalComment on above:Order Comment: Yes: Add to Previous draw if ablePerformed By: #### 71818, 01791, 42091, 26736, 31800 #### [facility] [place] [address] [place] [address], USACO2 [Moles/Vol]19 mmol/OFpu36-63Hhu [facility] HospitalComment on above:Order Comment: Yes: Add to Previous draw if able Performed By: #### 20666, 24105, 51628, 66514, 71395 #### [facility] [place] [address] [place] [address], USACreatinine [Mass/Vol]0.92 mg/dLNormal0.70-1.30The [facility] HospitalComment on above:Order Comment: Yes: Add to Previous draw if ablePerformed By: #### 99079, 89214, 72520, 10118, 17418 #### [facility] [place] [address] [place] [address], USAGFR/1.73 sq M.predicted among blacks MDRD (S/P/Bld) [Vol rate/Area]mL/min/{1.73_m2}Normal>60The [facility] Comment on above:Order Comment: Yes: Add to Previous draw if ablePerformed By: #### 96756, 51405, 40593, 33859, 22706 #### [facility] [place] [address] [place] [address], USAGFR/1.73 sq M.predicted among non-blacks MDRD (S/P/Bld) [Vol rate/Area]mL/min/{1.73_m2}Normal>60The [facility] Comment on above:Order Comment: Yes: Add to Previous draw if ablePerformed By: #### 81472, 73941, 13238, 33334, 18204 #### [facility] [place] [address] [place] [address], USAGlucose [Mass/Vol]159 mg/lTObsp57-090Aug [facility] HospitalComment on above:Order Comment: Yes: Add to Previous draw if ablePerformed By: #### 91045, 31864, 61793, 31884, 87971 #### [facility] [place] [address] [place] [address], USAPotassium [Moles/Vol]5.2 mmol/LHigh3.5-5.1The [facility] HospitalComment on above:Order Comment: Yes: Add to Previous draw if ablePerformed By: #### 98511, 92808, 25008, 20717, 92581 #### [facility] [place] [address] [place] [address], USAProtein [Mass/Vol]5.5 g/dLLow6.0-8.3The [facility] HospitalComment on above:Order Comment: Yes: Add to Previous draw if ablePerformed By: #### 54155, 00762, 35220, 60995, 20496 #### [facility] [place] [address] [place] [address], USASodium [Moles/Vol]133 mmol/SDqy308-693Fiv [facility] HospitalComment on above:Order Comment: Yes: Add to Previous draw if ablePerformed By: #### 98988, 48827, 52492, 19785, 04032 #### [facility] [place] [address] [place] [address], USAUrea nitrogen [Mass/Vol]35 mg/dLHigh7-25The [facility] HospitalComment on above:Order Comment: Yes: Add to Previous draw if ablePerformed By: #### 36958, 02633, 94497, 16048, 03231 #### [facility] [place] [address] [place] [address], USATACROLIMUSon 55-80-9989Zxajjciwvm (Bld) [Mass/Vol]7.8 ng/mL Normal5.0-20.0The [facility] HospitalComment on above:Order Comment: UnknownResult Comment: The [employer] Tacrolimus assay is a delayed one-step immunoassay for the quantitative determination of tacrolimus in human whole blood using the chemiluminescent microparticle immunoassay (CMIA) technology with flexible assay protocols, referred to as Chemiflex.Performed By: #### 12303, 91138, 46987, 37091, 60315 #### [facility] [place] [address] [place] [address], USAUFH HEPARIN ASSAYon 41-55-4873FIXAESWPELAJTC HEPARIN0.74 IU/mLHigh0.30-0.70The [facility] HospitalComment on above:Result Comment: Rivaroxaban and Apixaban will interfere with the anti Xa assay used to monitor UFH and LMWH.Performed By: #### 60190 ####[facility] [place] [place] [address], USAC REACTIVE PROTEINon 58-38-0408TDH [Mass/Vol]75.8 mg/LHigh0.0-7.0The [facility] HospitalComment on above:Order Comment: No: Do not add to previous draw CV'D BY [facility] AT 1240Performed By: #### 02763 #### [facility] [place] [address] [facility] [place] [address], USASEDIMENTATION RATEon 26-02-3346EFY RATE30 mm/hrHigh0-10The [facility] HospitalComment on above:Order Comment: No: Do not add to previous drawPerformed By: #### 72626 #### [facility] [place] [address] [facility] [place] [address], USATACROLIMUSon 77-38-2245Fvhrnkqrqy (Bld) [Mass/Vol]9.1 ng/mL Normal5.0-20.0The [facility] HospitalComment on above:Order Comment: UnknownResult Comment: The [employer] Tacrolimus assay is a delayed one-step immunoassay for the quantitative determination of tacrolimus in human whole blood using the chemiluminescent microparticle immunoassay (CMIA) technology with flexible assay protocols, referred to as Chemiflex.Performed By: #### 96401 #### [facility] [place] [address] [facility] [place] [address], USATROPONIN-Ion 68-75-9378Tlwpqien I.cardiac [Mass/Vol]7.37 ng/mLCritically high0.00-0.04The [facility] HospitalComment on above:Order Comment: Yes: Add to Previous draw if ableResult Comment: M-PREVIOUS CRITICAL RESULT 42.94 REFERENCE RANGES: 0.00 - 0.04 ng/ml NORMAL 0.05 - 0.50 ng/ml INDETERMINATE > 0.50 ng/ml CONSISTENT WITH AN M.I.Performed By: #### 57903, 81425, 98124, 84439, 91918 #### [facility] [place] [address] [facility] [place] [address], USAUFH HEPARIN ASSAYon 99-50-0611LVRRWGBSUYHXXX HEPARIN0.48 IU/mLNormal0.30-0.70The [facility] HospitalComment on above: Result Comment: Rivaroxaban and Apixaban will interfere with the anti Xa assay used to monitor UFH and LMWH.Performed By: #### 37181 ####[facility] [place] [address], [facility] COMPLETE BLOOD COUNTon 28-36-8924Zzrylpjxric distribution width (RBC) [Ratio]13.2 %Dsansv70.5-15.0The [facility] HospitalComment on above:Order Comment: Yes: Add to Previous draw if ablePerformed By: #### 36676, 11776, 84048, 58755, 99764 #### [facility] [place] [address] [place] [address], [facility] CARE CENTERHematocrit (Bld) [Volume fraction]44.8 %Pnqqzv51.0-50.0The [facility] HospitalComment on above:Order Comment: Yes: Add to Previous draw if ablePerformed By: #### 91318, 54094, 14205, 98408, 69283 #### [facility] [place] [address] [place] [address], [facility] CARE CENTERHemoglobin (Bld) [Mass/Vol]14.8 g/mHWvgtso68.0-17.0The [facility] HospitalComment on above:Order Comment: Yes: Add to Previous draw if ablePerformed By: #### 79528, 70501, 10600, 76103, 20572 #### [facility] [place] [address] [place] [address], [facility]ALESTERH (RBC) [Entitic mass]29.0 qlIxvkfh00.0-33.0The [facility] HospitalComment on above:Order Comment: Yes: Add to Previous draw if ablePerformed By: #### 85956, 28998, 08790, 83578, 45157 #### [facility] [place] [address] [place] [address], [facility] (RBC) [Mass/Vol]33.0 g/zTHqfwbs46.0-35.0The [facility] HospitalComment on above:Order Comment: Yes: Add to Previous draw if ablePerformed By: #### [id number], 87470, 07331, 58759, 49212 #### [facility] [place] [address] [place] [address], USAMCV (RBC) [Entitic vol]87.8 cDLvttyf48.0-98.0The [facility] HospitalComment on above:Order Comment: Yes: Add to Previous draw if ablePerformed By: #### 76989, 20238, 67659, 45825, 43055 #### [facility] [place] [address] [place] [address], USANucleated RBC/100 WBC (Bld) [Ratio]0 %Normal0-0The [facility] HospitalComment on above:Order Comment: Yes: Add to Previous draw if ablePerformed By: #### [id number], 42880, 85680, 55906, 37442 #### [facility] [place] [address] [place] [address], USAPLAT [id number] 10*3/[id number] [place] County HospitalComment on above:Order Comment: Yes: Add to Previous draw if able Performed By: #### 37503, 27720, 42728, 58448, 54948 #### [facility] [place] [address] [place] [address], USARBC (Bld) [#/Vol]5.10 10*6/uLNormal4.20-5.70The [facility] HospitalComment on above:Order Comment: Yes: Add to Previous draw if ablePerformed By: #### 07217, 20768, 65984, 67927, 46312 #### [facility] [place] [address] [place] [address], USAWBC (Bld) [#/Vol]3.94 10*3/uLLow4.00-10.60The [facility] HospitalComment on above:Order Comment: Yes: Add to Previous draw if ablePerformed By: #### 69991, 79664, 28524, 05442, 07149 #### [facility] [place] [address] [place] [address], USACOMP METABOLIC PANELon 54-55-6624Qtfvxik [Mass/Vol]3.0 g/dL Low3.5-5.7The [facility] HospitalComment on above:Order Comment: No: Do not add to previous drawLABS DRAWN IN SAME HAND PAUSED IV. PT IS TO REMAINFACE DOWN ONSTOMACH PER RN SO THAT IS THE ONLY PLACE WE CAN DRAW FROM RIGHT NOW.Performed By: #### 21055, 61445, 73183, 30829, 21413 #### [facility] [place] [address] [place] [address], USAALKALINE TWLSML14 IU/KUfxltw41-841Yty [facility] HospitalComment on above:Order Comment: No: Do not add to previous drawLABS DRAWN IN SAME HAND PAUSED IV. PT IS TO REMAINFACE DOWN ONSTOMACH PER RN SO THAT IS THE ONLY PLACE WE CAN DRAW FROM RIGHT NOW.Performed By: #### 86518, 32181, 45755, 03270, 83337 #### [facility] [place] [address] [place] [address], USAALT [Catalytic activity/Vol]42 U/LNormal7-52The [facility] HospitalComment on above:Order Comment: No: Do not add to previous drawLABS DRAWN IN SAME HAND PAUSED IV. PT IS TO REMAINFACE DOWN ONSTOMACH PER RN SO THAT IS THE ONLY PLACE WE CAN DRAW FROM RIGHT NOW.Performed By: #### 53297, 14517, 46694, 81574, 53807 #### [facility] [place] [address] [place] [address], USAAST [Catalytic activity/Vol]112 U/IIcxq72-77Kvi [facility] HospitalComment on above:Order Comment: No: Do not add to previous drawLABS DRAWN IN SAME HAND PAUSED IV. PT IS TO REMAINFACE DOWN ONSTOMACH PER RN SO THAT IS THE ONLY PLACE WE CAN DRAW FROM RIGHT NOW.Performed By: #### 47746, 26169, 35995, 91615, 28800 #### [facility] [place] [address] [place] [address], USABilirubin [Mass/Vol]1.4 mg/dLHigh0.3-1.0The [facility] HospitalComment on above:Order Comment: No: Do not add to previous drawLABS DRAWN IN SAME HAND PAUSED IV. PT IS TO REMAINFACE DOWN ONSTOMACH PER RN SO THAT IS THE ONLY PLACE WE CAN DRAW FROM RIGHT NOW.Performed By: #### 73528, 25944, 49309, 40472, 02715 #### [facility] [place] [address] [place] [address], USACalcium [Mass/Vol]8.3 mg/dLLow8.6-10.3The [facility] HospitalComment on above:Order Comment: No: Do not add to previous drawLABS DRAWN IN SAME HAND PAUSED IV. PT IS TO REMAINFACE DOWN ONSTOMACH PER RN SO THAT IS THE ONLY PLACE WE CAN DRAW FROM RIGHT NOW.Performed By: #### 85749, 57048, 30479, 12083, 17471 #### [facility] [place] [address] [place] [address], USAChloride [Moles/Vol]105 mmol/VYtwweh92-467Uhg [facility] HospitalComment on above:Order Comment: No: Do not add to previous drawLABS DRAWN IN SAME HAND PAUSED IV. PT IS TO REMAINFACE DOWN ONSTOMACH PER RN SO THAT IS THE ONLY PLACE WE CAN DRAW FROM RIGHT NOW.Performed By: #### 42699, 74341, 00282, 91919, 30290 #### [facility] [place] [address] [place] [address], USACO2 [Moles/Vol]20 mmol/QRnf23-34Acy [facility] HospitalComment on above:Order Comment: No: Do not add to previous drawLABS DRAWN IN SAME HAND PAUSED IV. PT IS TO REMAINFACE DOWN ONSTOMACH PER RN SO THAT IS THE ONLY PLACE WE CAN DRAW FROM RIGHT NOW.Performed By: #### 89705, 89882, 87235, 50829, 57431 #### [facility] [place] [address] [place] [address], USACreatinine [Mass/Vol]0.91 mg/dLNormal0.70-1.30The [facility] HospitalComment on above:Order Comment: No: Do not add to previous drawLABS DRAWN IN SAME HAND PAUSED IV. PT IS TO REMAINFACE DOWN ONSTOMACH PER RN SO THAT IS THE ONLY PLACE WE CAN DRAW FROM RIGHT NOW. Performed By: #### 41158, 16930, 72629, 74430, 17827 #### [facility] [place] [address] [place] [address], USAGFR/1.73 sq M.predicted among blacks MDRD (S/P/Bld) [Vol rate/Area]mL/min/{1.73_m2}Normal>60The [facility] Comment on above:Order Comment: No: Do not add to previous drawLABS DRAWN IN SAME HAND PAUSED IV. PT IS TO REMAINFACE DOWN ONSTOMACH PER RN SO THAT IS THE ONLY PLACE WE CAN DRAW FROM RIGHT NOW.Performed By: #### 18712, 61197, 05926, 99058, 75689 #### [facility] [place] [address] [place] [address], USAGFR/1.73 sq M.predicted among non-blacks MDRD (S/P/Bld) [Vol rate/Area]mL/min/{1.73_m2}Normal>60The [facility] Comment on above:Order Comment: No: Do not add to previous drawLABS DRAWN IN SAME HAND PAUSED IV. PT IS TO REMAINFACE DOWN ONSTOMACH PER RN SO THAT IS THE ONLY PLACE WE CAN DRAW FROM RIGHT NOW.Performed By: #### 71906, 57514, 08934, 53678, 28652 #### [facility] [place] [address] [place] [address], USAGlucose [Mass/Vol]153 mg/iVIqos70-077Ezf [facility] HospitalComment on above:Order Comment: No: Do not add to previous drawLABS DRAWN IN SAME HAND PAUSED IV. PT IS TO REMAINFACE DOWN ONSTOMACH PER RN SO THAT IS THE ONLY PLACE WE CAN DRAW FROM RIGHT NOW.Performed By: #### 91612, 45102, 82402, 17719, 19107 #### [facility] [place] [address] [place] [address], USAPotassium [Moles/Vol]4.7 mmol/LNormal3.5-5.1The [facility] HospitalComment on above:Order Comment: No: Do not add to previous drawLABS DRAWN IN SAME HAND PAUSED IV. PT IS TO REMAINFACE DOWN ONSTOMACH PER RN SO THAT IS THE ONLY PLACE WE CAN DRAW FROM RIGHT NOW.Performed By: #### 08247, 35794, 54130, 54191, 36982 #### [facility] [place] [address] [place] [address], USAProtein [Mass/Vol]5.8 g/dLLow6.0-8.3The [facility] HospitalComment on above:Order Comment: No: Do not add to previous drawLABS DRAWN IN SAME HAND PAUSED IV. PT IS TO REMAINFACE DOWN ONSTOMACH PER RN SO THAT IS THE ONLY PLACE WE CAN DRAW FROM RIGHT NOW.Performed By: #### 68451, 65100, 27577, 56072, 82064 #### [facility] [place] [address] [place] [address], USASodium [Moles/Vol]136 mmol/VOoxkmo648-935Rgs [facility] HospitalComment on above:Order Comment: No: Do not add to previous drawLABS DRAWN IN SAME HAND PAUSED IV. PT IS TO REMAINFACE DOWN ONSTOMACH PER RN SO THAT IS THE ONLY PLACE WE CAN DRAW FROM RIGHT NOW.Performed By: #### 35994, 49567, 48771, 77283, 74729 #### [facility] [place] [address] [place] [address], USAUrea nitrogen [Mass/Vol]28 mg/dLHigh7-25The [facility] HospitalComment on above:Order Comment: No: Do not add to previous drawLABS DRAWN IN SAME HAND PAUSED IV. PT IS TO REMAINFACE DOWN ONSTOMACH PER RN SO THAT IS THE ONLY PLACE WE CAN DRAW FROM RIGHT NOW.Performed By: #### 97008, 80692, 15872, 05362, 08316 #### [facility] [place] [address] [place] [address], USATACROLIMUSon 63-41-6335Srkbpwukbf (Bld) [Mass/Vol]9.2 ng/mL Normal5.0-20.0The [facility] HospitalComment on above:Order Comment: UnknownLABS DRAWN IN SAME HAND PAUSED IV. PT IS TO REMAIN FACE DOWN ONSTOMACH PERRN SO THAT IS THE ONLY PLACE WE CAN DRAW FROM RIGHT NOW.Result Comment: The SANDHU COTTON HEADER Tacrolimus assay is a delayed one-step immunoassay for the quantitative determination of tacrolimus in human whole blood using the chemiluminescent microparticle immunoassay (CMIA) technology with flexible assay protocols, referred to as Chemiflex.Performed By: #### 19133, 47728, 68765, 34721, 57755 #### [facility] [place] [address] [place] [address], USATROPONIN-Ion [id number] I.cardiac [Mass/Vol]42.94 ng/mLCritically high0.00-0.04The [facility] HospitalComment on above:Result Comment: M-PREVIOUS CRITICAL RESULT REFERENCE RANGES: 0.00 - 0.04 ng/ml NORMAL 0.05 - 0.50 ng/ml INDETERMINATE > 0.50 ng/ml CONSISTENT WITH AN M.I.Performed By: #### 74812, 17976, 43071, 45845, 05659 #### [facility] [place] [address] [place] [address], USATroponin I.cardiac [Mass/Vol]46.69 ng/mLCritically high 0.00-0.04The [facility] HospitalComment on above:Order Comment: No: Do not add to previous drawResult Comment: M-PREVIOUS CRITICAL RESULT REFERENCE RANGES: 0.00 - 0.04 ng/ml NORMAL 0.05 - 0.50 ng/ml INDETERMINATE > 0.50 ng/ml CONSISTENT WITH AN M.I.Performed By: #### 03078 ####[facility] [place] [place] [address], USAUFH HEPARIN ASSAYon [id number] HEPARIN0.34 IU/mLNormal0.30-0.70The [facility] HospitalComment on above:Order Comment: No: Do not add to previous drawResult Comment: Rivaroxaban and Apixaban will interfere with the anti Xa assay used to monitor UFH and LMWH.Performed By: #### 77730 #### [facility] [place] [address] [place] [address], USACHLORIDE URon [id number] [Moles/Vol]26.0 mmol/L NormalThe [facility] HospitalComment on above:Order Comment: Yes: Add to Previous draw if ableResult Comment: There are no established reference values for random urine specimensPerformed By: #### 20552, 68183, 31579, 22026, 86409 #### [facility] [place] [address] [facility] [place] [address], USACOMP METABOLIC PANELon 87-68-5600Jtbweyy [Mass/Vol]3.0 g/dL Low3.5-5.7The [facility] HospitalComment on above:Order Comment: Yes: Add to Previous draw if ablePerformed By: #### 89458, 67451, 87407, 51666, 92064 #### [facility] [place] [address] [place] [address], USAALKALINE MDUIQE81 IU/CYpuywl54-648Ttb [facility] HospitalComment on above:Order Comment: Yes: Add to Previous draw if able Performed By: #### 67462, 20264, 95695, 99149, 26194 #### [facility] [place] [address] [place] [address], USAALT [Catalytic activity/Vol]35 U/LNormal7-52The [facility] HospitalComment on above:Order Comment: Yes: Add to Previous draw if ablePerformed By: #### 73110, 91478, 95421, 23119, 80338 #### [facility] [place] [address] [place] [address], USAAST [Catalytic activity/Vol]54 U/VEbeh14-87Spm [facility] HospitalComment on above:Order Comment: Yes: Add to Previous draw if ablePerformed By: #### 06319, 57471, 94767, 76493, 53173 #### [facility] [place] [address] [place] [address], USABilirubin [Mass/Vol]1.0 mg/dLNormal0.3-1.0The [facility] HospitalComment on above:Order Comment: Yes: Add to Previous draw if ablePerformed By: #### 47694, 27320, 50592, 93493, 68782 #### [facility] [place] [address] [place] [address], USACalcium [Mass/Vol]8.2 mg/dLLow8.6-10.3The [facility] HospitalComment on above:Order Comment: Yes: Add to Previous draw if ablePerformed By: #### 83265, 04502, 65126, 56637, 60515 #### [facility] [place] [address] [place] [address], USAChloride [Moles/Vol]105 mmol/RDdzfom17-551Vdv [facility] HospitalComment on above:Order Comment: Yes: Add to Previous draw if ablePerformed By: #### 19118, 74960, 64476, 80320, 28041 #### [facility] [place] [address] [place] [address], USACO2 [Moles/Vol]19 mmol/DZqn52-46Xnp [facility] HospitalComment on above:Order Comment: Yes: Add to Previous draw if able Performed By: #### 66200, 70568, 54531, 43689, 12812 #### [facility] [place] [address] [place] [address], USACreatinine [Mass/Vol]0.89 mg/dLNormal0.70-1.30The [facility] HospitalComment on above:Order Comment: Yes: Add to Previous draw if ablePerformed By: #### 49439, 88271, 62333, 98675, 13501 #### [facility] [place] [address] [place] [address], USAGFR/1.73 sq M.predicted among blacks MDRD (S/P/Bld) [Vol rate/Area]mL/min/{1.73_m2}Normal>60The [facility] Comment on above:Order Comment: Yes: Add to Previous draw if ablePerformed By: #### 99749, 77127, 98627, 15522, 77614 #### [facility] [place] [address] [place] [address], USAGFR/1.73 sq M.predicted among non-blacks MDRD (S/P/Bld) [Vol rate/Area]mL/min/{1.73_m2}Normal>60The [facility] Comment on above:Order Comment: Yes: Add to Previous draw if ablePerformed By: #### 56151, 61601, 55907, 83711, 27397 #### [facility] [place] [address] [place] [address], USAGlucose [Mass/Vol]174 mg/wZUqyy52-101Xbn [facility] HospitalComment on above:Order Comment: Yes: Add to Previous draw if ablePerformed By: #### 23425, 37622, 22140, 12359, 61435 #### [facility] [place] [address] [place] [address], USAPotassium [Moles/Vol]4.9 mmol/LNormal3.5-5.1The [facility] HospitalComment on above:Order Comment: Yes: Add to Previous draw if ablePerformed By: #### 89855, 47827, 77050, 44504, 93506 #### [facility] [place] [address] [place] [address], USAProtein [Mass/Vol]5.5 g/dLLow6.0-8.3The [facility] HospitalComment on above:Order Comment: Yes: Add to Previous draw if ablePerformed By: #### 89054, 58457, 09296, 25339, 96814 #### [facility] [place] [address] [place] [address], USASodium [Moles/Vol]136 mmol/MYfskdl387-243Ryb [facility] HospitalComment on above:Order Comment: Yes: Add to Previous draw if ablePerformed By: #### 23666, 73055, 19325, 72806, 27296 #### [facility] [place] [address] [place] [address], USAUrea nitrogen [Mass/Vol]35 mg/dLHigh7-25The [facility] HospitalComment on above:Order Comment: Yes: Add to Previous draw if ablePerformed By: #### 87835, 67307, 84696, 51820, 49612 #### [facility] [place] [address] [place] [address], USALIVER BATTERYon 14-53-8108Osklone [Mass/Vol]3.2 g/dLLow 3.5-5.7The [facility] HospitalComment on above:Performed By: #### 77738, 88429, 96803, 63730, 62252 #### [facility] [place] [address] [place] [address], USAALKALINE GISHNK66 IU/OKvuech89-557Xyl [facility] HospitalComment on above:Performed By: #### 73422, 65765, 03116, 97659, 03447 #### [facility] [place] [address] [place] [address], USAALT [Catalytic activity/Vol]40 U/LNormal7-52The [facility] HospitalComment on above:Performed By: #### 80577, 37955, 31166, 35539, 82663 #### [facility] [place] [address] [place] [address], USAAST [Catalytic activity/Vol]36 U/BPccxws30-26Ytn [facility] HospitalComment on above:Performed By: #### 51186, 73095, 10138, 68654, 63574 #### [facility] [place] [address] [place] [address], USABilirubin [Mass/Vol]0.9 mg/dLNormal0.3-1.0The [facility] HospitalComment on above:Performed By: #### 99208, 45614, 35756, 10730, 40736 #### [facility] [place] [address] [place] [address], USABilirubin.direct [Mass/Vol]0.3 mg/dLHigh0.0-0.2The [facility] HospitalComment on above:Performed By: #### 38286, 06277, 31509, 77790, 70361 #### [facility] [place] [address] [place] [address], USAProtein [Mass/Vol]5.9 g/dLLow6.0-8.3The [facility] HospitalComment on above:Performed By: #### 04270, 91612, 01108, 26714, 43862 #### [facility] [place] [address] [place] [address], USAPORTABLE CHEST 1 VIEWon 40-30-2058IXSAHMOA CHEST 1 VIEW [facility] [address] [place] [address] Patient Name: VISHAL DUKE : 1960 Sex: M Age: Race: White Pt. Location: [id number] Patient Status: I Ordered Date: 08/05/2020 1:35:00 [...] reports Electronically signed: Mauricio Koo. Transcribed by: [email or web address], User Resident: ELADIA CABRERA Electronically Signed by: MAURICIO KOO @ 08/05/2020 02:08 AM I personally read this/these film(s) with this residentSelect [facility], AvonComment on above:Order Comment: Yes: Add to Previous draw if ablePOTASSIUM URon [id number] [Moles/Vol]61.0 mmol/LNormalThe [facility] HospitalComment on above:Order Comment: Yes: Add to Previous draw if ableResult Comment: There are no established reference values for random urine specimensPerformed By: #### 81825, 95473, 50994, 56464, 04410 #### [facility] [place] [address] [place] [address], USAPROCALCITONINon 64-05-7864VUITLDFFLEJCG2.54 ng/mLHigh 0.00-0.10The [facility] HospitalComment on above:Order Comment: Yes: Add to [...] clinically indicated and initial PCT<0.5ng/mLPerformed By: #### 76302, 48239, 46921, 55706, 34923 #### [facility] [place] [address] [place] [address], USASODIUM URINE RANDOMon 35-74-5124Rqouef (U) [Moles/Vol]54 mmol/LNormalThe [facility] HospitalComment on above:Order Comment: Yes: Add to Previous draw if ableResult Comment: There are no established reference values for random urine specimensPerformed By: #### 96989, 41584, 18022, 31190, 70458 #### [facility] [place] [address] [facility] [place] [address], USATACROLIMUSon 76-69-7402Wcnuawlmlh (Bld) [Mass/Vol]11.2 ng/mLNormal5.0-20.0The [facility] HospitalComment on above:Order Comment: UnknownResult Comment: The [employer] Tacrolimus assay is a delayed one-step immunoassay for the quantitative determination of tacrolimus in human whole blood using the chemiluminescent microparticle immunoassay (CMIA) technology with flexible assay protocols, referred to as Chemiflex.Performed By: #### 81533, 75122, 39541, 88878, 96613 #### [facility] [place] [address] [facility] [place] [address], USATROPONIN-Ion 28-77-2684Jhatrjut I.cardiac [Mass/Vol]39.61 ng/mLCritically high0.00-0.04The [facility] HospitalComment on above:Order Comment: Yes: Add to Previous draw if ableResult Comment: M-PREVIOUS CRITICAL RESULT REFERENCE RANGES: 0.00 - 0.04 ng/ml NORMAL 0.05 - 0.50 ng/ml INDETERMINATE > 0.50 ng/ml CONSISTENT WITH AN M.I.Performed By: #### 60316, 12911, 81851, 55162, 29903 #### [facility] [place] [address] [facility] [place] [address], USATroponin I.cardiac [Mass/Vol]36.67 ng/mLCritically high 0.00-0.04The [facility] HospitalComment on above:Order Comment: No: Do not add to previous drawResult Comment: M-PREVIOUS CRITICAL RESULT REFERENCE RANGES: 0.00 - 0.04 ng/ml NORMAL 0.05 - 0.50 ng/ml INDETERMINATE > 0.50 ng/ml CONSISTENT WITH AN M.I.Performed By: #### 33114, 88282, 98506, 85910, 34808 #### [facility] [place] [address] [place] [address], USATroponin I.cardiac [Mass/Vol]2.03 ng/mLCritically high 0.00-0.04The [facility] HospitalComment on above:Order Comment: Yes: Add to Previous draw if ableResult Comment: M-TROPONIN INITIAL CRITICAL HIGH; RESPUN AND RETESTED M-CRITICAL RESULT(S) REVIEWED, CALLED TO AND READ BACK BY ROSA M COTA RN AT 0902 REFERENCE RANGES: 0.00 - 0.04 ng/ml NORMAL 0.05 - 0.50 ng/ml INDETERMINATE > 0.50 ng/ml CONSISTENT WITH AN M.I.Performed By: #### 95962, 33362, 77847, 47457, 19520 #### [facility] [place] [address] [place] [address], USATroponin I.cardiac [Mass/Vol]0.03 ng/mLNormal0.00-0.04The [facility] HospitalComment on above:Order Comment: Yes: Add to Previous draw if ableResult Comment: REFERENCE RANGES: 0.00 - 0.04 ng/ml NORMAL 0.05 - 0.50 ng/ml INDETERMINATE > 0.50 ng/ml CONSISTENT WITH AN M.I.Performed By: #### 55028, 12220, 07647, 55467, 84756 #### [facility] [place] [address] [place] [address], USAUFH HEPARIN ASSAYon [id number] HEPARIN0.37 IU/mLNormal0.30-0.70The [facility] HospitalComment on above: Result Comment: Rivaroxaban and Apixaban will interfere with the anti Xa assay used to monitor UFH and LMWH.Performed By: #### 34152 ####[facility] [place] [place] [address], USAUNFRACTIONATED HEPARIN0.17 IU/mL Low0.30-0.70The [facility] HospitalComment on above:Result Comment: Rivaroxaban and Apixaban will interfere with the anti Xa assay used to monitor UFH and LMWH.Performed By: #### 68650 #### [facility] [place] [address] [place] [address], USACOMP METABOLIC PANELon 03-23-0679Myswnry [Mass/Vol]3.1 g/dL Low3.5-5.7The [facility] HospitalComment on above:Order Comment: Yes: Add to Previous draw if ablePerformed By: #### 26178, 83610, 50012, 61230, 69224 #### [facility] [place] [address] [place] [address], USAALKALINE GYVYVF75 IU/VUfowdl03-380Dyq [facility] HospitalComment on above:Order Comment: Yes: Add to Previous draw if able Performed By: #### 70992, 80994, 24033, 79881, 68606 #### [facility] [place] [address] [place] [address], USAALT [Catalytic activity/Vol]47 U/LNormal7-52The [facility] HospitalComment on above:Order Comment: Yes: Add to Previous draw if ablePerformed By: #### 94137, 19799, 53632, 83622, 41144 #### [facility] [place] [address] [place] [address], USAAST [Catalytic activity/Vol]45 U/DRkbf97-45Cbb [facility] HospitalComment on above:Order Comment: Yes: Add to Previous draw if ablePerformed By: #### 18223, 67561, 21411, 91657, 97309 #### [facility] [place] [address] [place] [address], USABilirubin [Mass/Vol]0.5 mg/dLNormal0.3-1.0The [facility] HospitalComment on above:Order Comment: Yes: Add to Previous draw if ablePerformed By: #### 52291, 11841, 28712, 70739, 89448 #### [facility] [place] [address] [place] [address], USACalcium [Mass/Vol]8.4 mg/dLLow8.6-10.3The [facility] HospitalComment on above:Order Comment: Yes: Add to Previous draw if ablePerformed By: #### [id number], 58490, 35556, 91703, 52366 #### [facility] [place] [address] [place] [address], USAChloride [Moles/Vol]102 mmol/XLthotd09-146Itx [facility] HospitalComment on above:Order Comment: Yes: Add to Previous draw if ablePerformed By: #### [id number], 44976, 44504, 39629, 33591 #### [facility] [place] [address] [place] [address], USACO2 [Moles/Vol]24 mmol/SUwlmqk46-65Yjf [facility] HospitalComment on above:Order Comment: Yes: Add to Previous draw if able Performed By: #### 39910, 45045, 09343, 59302, 57570 #### [facility] [place] [address] [place] [address], USACreatinine [Mass/Vol]1.04 mg/dLNormal0.70-1.30The [facility] HospitalComment on above:Order Comment: Yes: Add to Previous draw if ablePerformed By: #### 30385, 73282, 92236, 04134, 32630 #### [facility] [place] [address] [place] [address], USAGFR/1.73 sq M.predicted among blacks MDRD (S/P/Bld) [Vol rate/Area]mL/min/{1.73_m2}Normal>60[facility] Comment on above:Order Comment: Yes: Add to Previous draw if ablePerformed By: #### 91269, 66651, 89892, 52760, 09915 #### [facility] [place] [address] [place] [address], USAGFR/1.73 sq M.predicted among non-blacks MDRD (S/P/Bld) [Vol rate/Area]mL/min/{1.73_m2}Normal>60The [facility] Comment on above:Order Comment: Yes: Add to Previous draw if ablePerformed By: #### 36179, 97552, 54641, 58645, 54993 #### [facility] [place] [address] [place] [address], USAGlucose [Mass/Vol]196 mg/uAWiiu48-285Moc [facility] HospitalComment on above:Order Comment: Yes: Add to Previous draw if ablePerformed By: #### 99363, 71397, 71972, 85546, 03856 #### [facility] [place] [address] [place] [address], USAPotassium [Moles/Vol]4.6 mmol/LNormal3.5-5.1The [facility] HospitalComment on above:Order Comment: Yes: Add to Previous draw if ablePerformed By: #### 03482, 55135, 74023, 01847, 01619 #### [facility] [place] [address] [place] [address], USAProtein [Mass/Vol]5.8 g/dLLow6.0-8.3The [facility] HospitalComment on above:Order Comment: Yes: Add to Previous draw if ablePerformed By: #### 45961, 39420, 01467, 29638, 45638 #### [facility] [place] [address] [place] [address], USASodium [Moles/Vol]135 mmol/GKoc685-481Qum [facility] HospitalComment on above:Order Comment: Yes: Add to Previous draw if ablePerformed By: #### 15142, 80982, 02092, 69536, 39806 #### [facility] [place] [address] [place] [address], USAUrea nitrogen [Mass/Vol]38 mg/dLHigh7-25The [facility] HospitalComment on above:Order Comment: Yes: Add to Previous draw if ablePerformed By: #### 62368, 60727, 22080, 85399, 50335 #### [facility] [place] [address] [place] [address], USACPKon 74-13-8018HT [Catalytic activity/Vol]80 U/LNormal 30-223The [facility] HospitalComment on above:Performed By: #### 52847, 38522, 98567, 99389, 06306 #### [facility] [place] [address] [place] [address], USALDH BLOODon 03-66-0600LKG653 Units/CKkrd873-444Eki [facility] HospitalComment on above:Performed By: #### 80194, 95684, 96414, 69492, 44542 #### [facility] [place] [address] [place] [address], USAMAGNESIUM BLOODon 33-96-0067Yraltbkgz [Mass/Vol]2.3 mg/dL Normal1.9-2.7The [facility] HospitalComment on above:Performed By: #### 45875, 90382, 25262, 61993, 01541 #### [facility] [place] [address] [place] [address], USATACROLIMUSon 21-59-9327Tasghgqsee (Bld) [Mass/Vol]17.4 ng/mLNormal5.0-20.0The [facility] HospitalComment on above:Order Comment: Yes: Add to Previous draw if ableResult Comment: The SANDHU COTTON [employer]ER Tacrolimus assay is a delayed one-step immunoassay for the quantitative determination of tacrolimus in human whole blood using the chemiluminescent microparticle immunoassay (CMIA) technology with flexible assay protocols, referred to as Chemiflex.Performed By: #### 73508, 70846, 15045, 77456, 97470 #### [facility] [place] [address] [place] [address], USATROPONIN-Ion 34-60-0252Besellhb I.cardiac [Mass/Vol]0.01 ng/mLNormal0.00-0.04The [facility] HospitalComment on above: Result Comment: REFERENCE RANGES: 0.00 - 0.04 ng/ml NORMAL 0.05 - 0.50 ng/ml INDETERMINATE > 0.50 ng/ml CONSISTENT WITH AN M.I.Performed By: #### 44159, 29977, 89178, 62167, 37513 #### [facility] [place] [address] [place] [address], [place]*SARS-CoV-2 COVID-19on 19-57-0567SWAW-CoV-2 (COVID-19) RNA ADELINE+probe Ql (Unsp spec)DetectedCritically abnormalNot DetectedThe [facility] HospitalComment on above:Result Comment: Called Lara Reid on 08-03 at 1020.Performed By: #### 90481, 77320, 95276, 72818, 96404 #### [facility] [place] [address] [place] [address], USABASIC METABOLIC PANELon 88-11-1532Llmiytf [Mass/Vol]8.4 mg/dLLow8.6-10.3The [facility] HospitalComment on above:Order Comment: No: Do not add to previous draw Pt in bath room askme to come backPerformed By: #### 90549 #### [facility] [place] [address] [place] [address], USAChloride [Moles/Vol]97 mmol/UUtj98-776Hpv [facility] HospitalComment on above:Order Comment: No: Do not add to previous draw Pt in bath room askme to come backPerformed By: #### 01100 #### [facility] [place] [address] [place] [address], USACO2 [Moles/Vol]22 mmol/WOzaopi62-22Uhi [facility] HospitalComment on above:Order Comment: No: Do not add to previous draw Pt in bath room askme to come backPerformed By: #### 58283 #### [facility] [place] [address] [place] [address], USACreatinine [Mass/Vol]0.90 mg/dLNormal0.70-1.30The [facility] HospitalComment on above:Order Comment: No: Do not add to previous draw Pt in bath room askme to come backPerformed By: #### 85180 #### [facility] [place] [address] [place] [address], USAGFR/1.73 sq M.predicted among blacks MDRD (S/P/Bld) [Vol rate/Area]mL/min/{1.73_m2}Normal>60The [facility] Comment on above:Order Comment: No: Do not add to previous draw Pt in bath room askme to come backPerformed By: #### 85634 #### [facility] [place] [address] [place] [address], USAGFR/1.73 sq M.predicted among non-blacks MDRD (S/P/Bld) [Vol rate/Area]mL/min/{1.73_m2}Normal>60The [facility] Comment on above:Order Comment: No: Do not add to previous draw Pt in bath room askme to come backPerformed By: #### 05537 #### [facility] [place] [address] [place] [address], USAGlucose [Mass/Vol]167 mg/vBDahp27-821Ftj [facility] HospitalComment on above:Order Comment: No: Do not add to previous draw Pt in bath room askme to come backPerformed By: #### 98529 #### [facility] [place] [address] [place] [address], USAPotassium [Moles/Vol]4.4 mmol/LNormal3.5-5.1The [facility] HospitalComment on above:Order Comment: No: Do not add to previous draw Pt in bath room askme to come backPerformed By: #### 01099 #### [facility] [place] [address] [place] [address], USASodium [Moles/Vol]131 mmol/CWzv092-409Vkr [facility] HospitalComment on above:Order Comment: No: Do not add to previous draw Pt in bath room askme to come backPerformed By: #### 90710 #### [facility] [place] [address] [place] [address], USAUrea nitrogen [Mass/Vol]22 mg/dLNormal7-25The [facility] HospitalComment on above:Order Comment: No: Do not add to previous draw Pt in bath room askme to come backPerformed By: #### 85063 #### [facility] [place] [address] [facility] [place] [address], TO[facility]ATCHI HEALTH CARE CENTERCBC W/DIFFon 09-75-6333MWX IMM GRANS0.1 10*3/uLNormal 0.0-0.2The [facility] HospitalComment on above:Order Comment: No: Do not add to previous drawPerformed By: #### 05056 #### [facility] [place] [address] [facility] [place] [address], USAABS NEUTROPHILS4.8 10*3/uLNormal1.6-7.6The [facility] HospitalComment on above:Order Comment: No: Do not add to previous drawPerformed By: #### 31534 #### [facility] [place] [address] [facility] [place] [address], USABasophils (Bld) [#/Vol]0.0 10*3/uLNormal0.0-0.2The [facility] HospitalComment on above:Order Comment: No: Do not add to previous drawPerformed By: #### 85545 #### [facility] [place] [address] [facility] [place] [address], USABasophils/100 WBC (Bld)0.4 %Normal0.0-1.0The [facility] HospitalComment on above:Order Comment: No: Do not add to previous drawPerformed By: #### 48662 #### [facility] [place] [address] [place] [address], USAEosinophils (Bld) [#/Vol]0.0 10*3/uLNormal0.0-0.5The [facility] HospitalComment on above:Order Comment: No: Do not add to previous drawPerformed By: #### 51178 #### [facility] [place] [address] [place] [address], USAEosinophils/100 WBC (Bld)0.0 %Normal0.0-6.0The [facility] HospitalComment on above:Order Comment: No: Do not add to previous drawPerformed By: #### 54215 #### [facility] [place] [address] [place] [address], USAErythrocyte distribution width (RBC) [Ratio]13.6 %Normal 11.5-15.0The [facility] HospitalComment on above:Order Comment: No: Do not add to previous drawPerformed By: #### 27932 #### [facility] [place] [address] [place] [address], USAHematocrit (Bld) [Volume fraction]45.6 %Abijjq14.0-50.0The [facility] HospitalComment on above:Order Comment: No: Do not add to previous drawPerformed By: #### 17126 #### [facility] [place] [address] [place] [address], USAHemoglobin (Bld) [Mass/Vol]15.9 g/zPObuhyk68.0-17.0The [facility] HospitalComment on above:Order Comment: No: Do not add to previous drawPerformed By: #### 46027 #### [facility] [place] [address] [place] [address], USAIMMATURE GRANS0.9 %Normal0.0-1.0The [facility] HospitalComment on above:Order Comment: No: Do not add to previous draw Performed By: #### 95147 #### [facility] [place] [address] [place] [address], USALymphocytes (Bld) [#/Vol]0.4 10*3/uLLow1.2-4.0The [facility] HospitalComment on above:Order Comment: No: Do not add to previous drawPerformed By: #### 47185 #### [facility] [place] [address] [place] [address], USALymphocytes/100 WBC (Bld)7.1 %Low20.0-45.0The [facility] HospitalComment on above:Order Comment: No: Do not add to previous drawPerformed By: #### 08039 #### [facility] [place] [address] [place] [address], [facility] – MCALESTERH (RBC) [Entitic mass]29.5 ltSgvmmr71.0-33.0The [facility] HospitalComment on above:Order Comment: No: Do not add to previous drawPerformed By: #### 72542 #### [facility] [place] [address] [place] [address], TO[facility] CARE CENTERMCHC (RBC) [Mass/Vol]34.9 g/xVOspwpx87.0-35.0The [facility] HospitalComment on above:Order Comment: No: Do not add to previous drawPerformed By: #### 69355 #### [facility] [place] [address] [place] [address], TO[facility]ATCH[facility] HE[facility] CARE CENTERMCV (RBC) [Entitic vol]84.6 uQEngwpz22.0-98.0The [facility] HospitalComment on above:Order Comment: No: Do not add to previous drawPerformed By: #### 73107 #### [facility] [place] [address] [place] [address], USAMonocytes (Bld) [#/Vol]0.2 10*3/uLNormal0.1-1.0The [facility] HospitalComment on above:Order Comment: No: Do not add to previous drawPerformed By: #### 31882 #### [facility] [place] [address] [place] [address], USAMONOS4.2 %Low5.0-12.0The [facility] HospitalComment on above:Order Comment: No: Do not add to previous drawPerformed By: #### 21072 #### [facility] [place] [address] [address], USANeutrophils/100 WBC (Bld)87.4 %High40.0-72.0The [facility] HospitalComment on above:Order Comment: No: Do not add to previous drawPerformed By: #### 40894 #### [facility] [place] [address] [place] [address], USANucleated RBC/100 WBC (Bld) [Ratio]0 %Normal0-0The [facility] HospitalComment on above:Order Comment: No: Do not add to previous drawPerformed By: #### 24863 #### [facility] [place] [address] [place] [address], USAPLAT HGI685 10*3/vXZddxdf857-854Nop [facility] HospitalComment on above:Order Comment: No: Do not add to previous draw Performed By: #### 56451 #### [facility] [place] [address] [place] [address], USARBC (Bld) [#/Vol]5.39 10*6/uLNormal4.20-5.70The [facility] HospitalComment on above:Order Comment: No: Do not add to previous drawPerformed By: #### 41395 #### [facility] [place] [address] [place] [address], USAWBC (Bld) [#/Vol]5.47 10*3/uLNormal4.00-10.60The [facility] HospitalComment on above:Order Comment: No: Do not add to previous drawPerformed By: #### 90760 #### [facility] [place] [address] [place] [address], USACPKon 45-27-1032UM [Catalytic activity/Vol]168 U/LNormal 30-223The [facility] HospitalComment on above:Order Comment: No: Do not add to previous draw Pt in bath room askme to come backPerformed By: #### 96531 #### [facility] [place] [address] [place] [address], USAD DIMER TESTon [id number]-DIMER TEST5.09 mcg/mL FEUHigh 0.27-0.49The [facility] HospitalComment on above:Order Comment: No: Do not add to previous drawResult Comment: D-Dimer values of less than 0.50 ug/ml (FEU) are considered to be a negative predictor of thrombosis. However, the D-Dimer result should be used in conjunction with pretest probability and should not be used alone to diagnose a thrombotic event. D-DIMER RESULT REPEATED AND CONFIRMEDPerformed By: #### 86135 ####[facility] [place] [place] [address], USAFERRITINon 93-55-9881Beeqynfk [Mass/Vol]1079 ng/uVXbuf57-510Kaa [facility] HospitalComment on above:Order Comment: No: Do not add to previous draw Pt in bath room askme to come backPerformed By: #### 50555 #### [facility] [place] [address] [place] [address], USALDH BLOODon [id number] Units/DGsnl479-242Lov [facility] HospitalComment on above:Order Comment: No: Do not add to previous draw Pt in bath room askme to come backPerformed By: #### 55010 #### [facility] [place] [address] [place] [address], USALIVER BATTERYon 13-47-9513Bvgwvgo [Mass/Vol]3.6 g/dLNormal 3.5-5.7The [facility] HospitalComment on above:Order Comment: Yes: Add to Previous draw if ablePerformed By: #### 40578, 95905, 77390, 20001, 52811 #### [facility] [place] [address] [place] [address], USAALKALINE BUZIOS30 IU/KKbjwnu44-407Lhn [facility] HospitalComment on above:Order Comment: Yes: Add to Previous draw if able Performed By: #### 36167, 55441, 10603, 68501, 80438 #### [facility] [place] [address] [place] [address], USAALT [Catalytic activity/Vol]34 U/LNormal7-52The [facility] HospitalComment on above:Order Comment: Yes: Add to Previous draw if ablePerformed By: #### 82457, 99564, 56385, 26963, 04601 #### [facility] [place] [address] [place] [address], USAAST [Catalytic activity/Vol]40 U/FMqkd54-09Qng [facility] HospitalComment on above:Order Comment: Yes: Add to Previous draw if ablePerformed By: #### 37689, 39910, 83611, 96860, 89575 #### [facility] [place] [address] [place] [address], USABilirubin [Mass/Vol]0.7 mg/dLNormal0.3-1.0The [facility] HospitalComment on above:Order Comment: Yes: Add to Previous draw if ablePerformed By: #### 29392, 55469, 23645, 59723, 48141 #### [facility] [place] [address] [place] [address], USABilirubin.direct [Mass/Vol]0.1 mg/dLNormal0.0-0.2The [facility] HospitalComment on above:Order Comment: Yes: Add to Previous draw if ablePerformed By: #### 04805, 01311, 13765, 03620, 68391 #### [facility] [place] [address] [facility] [place] [address], USAProtein [Mass/Vol]6.3 g/dLNormal6.0-8.3The [facility] HospitalComment on above:Order Comment: Yes: Add to Previous draw if ablePerformed By: #### 79973, 59011, 38549, 56654, 83027 #### [facility] [place] [address] [place] [address], USAMAGNESIUM BLOODon [id number] [Mass/Vol]2.3 mg/dL Normal1.9-2.7The [facility] HospitalComment on above:Order Comment: No: Do not add to previous draw Pt in bath room askme to come backPerformed By: #### 64808 #### [facility] [place] [address] [facility] [place] [address], USAPHOSPHORUS BLOODon 29-17-0299Tdyolsqzu [Mass/Vol]3.6 mg/dL Normal2.5-5.0The [facility] HospitalComment on above:Order Comment: No: Do not add to previous draw Pt in bath room askme to come backPerformed By: #### 00480 #### [facility] [place] [address] [facility] [place] [address], USAPORTABLE CHEST 1 VIEWon [id number] CHEST 1 VIEW [facility] [address] [place] [address] Patient Name: VISHAL DUKE : 1960 Sex: M Age: Race: White Pt. Location: [id number] Patient Status: I Ordered Date: 08/03/2020 8:00:00 [...] pneumonia. Electronically signed: Dariela Vincent. Transcribed by: [email or web address], User Resident: Electronically Signed by: DARIELA VINCENT @ 08/03/2020 07:52 AMNormalThe [facility] HospitalComment on above:Order Comment: No: Do not add to previous draw CV'D BY IMM LAB AT 1240PROCALCITONINon [id number] ng/mLHigh 0.00-0.10The [facility] HospitalComment on above:Order Comment: No: Do not [...] clinically indicated and initial PCT<0.5ng/mLPerformed By: #### 18813, 50943, 86136, 51313, 93450 #### [facility] [place] [address] [facility] [place] [address], USATACROLIMUSon 46-82-8426Lezgbfhruz (Bld) [Mass/Vol]24.9 ng/mLHigh5.0-20.0The [facility] HospitalComment on above:Order Comment: Yes: Add to Previous draw if ableResult Comment: The [employer] Tacrolimus assay is a delayed one-step immunoassay for the quantitative determination of tacrolimus in human whole blood using the chemiluminescent microparticle immunoassay (CMIA) technology with flexible assay protocols, referred to as Chemiflex.Performed By: #### 88923, 01544, 55532, 55891, 72096 #### [facility] [place] [address] [place] [address], USATROPONIN-Ion 04-34-2269Edcrqvdz I.cardiac [Mass/Vol]0.01 ng/mLNormal0.00-0.04The [facility] HospitalComment on above: Order Comment: No: Do not add to previous draw Pt in bath room askme to come backResult Comment: REFERENCE RANGES: 0.00 - 0.04 ng/ml NORMAL 0.05 - 0.50 ng/ml INDETERMINATE > 0.50 ng/ml CONSISTENT WITH AN M.I.Performed By: #### 13752 #### [facility] [place] [address] [place] [address], USAURINALYSIS REFLEXon 58-48-6145Ytbfyhrywt (U)CLEARNormal CLEARThe [facility] HospitalComment on above:Order Comment: No: Do not add to previous draw CV'D BY IMM LAB AT 1240Performed By: #### 40418 #### [facility] [place] [address] [place] [address], USABilirubin Ql (U)NegativeNormalNEGATIVEThe [facility] HospitalComment on above:Order Comment: No: Do not add to previous draw CV'D BY IMM [facility] AT 1240Performed By: #### 25585 #### [facility] [place] [address] [place] [address], USAColor (U)YELLOWNormalYELLOWThe [facility] HospitalComment on above:Order Comment: No: Do not add to previous draw CV'D BY IMM [facility] AT 1240Performed By: #### 85671 #### [facility] [place] [address] [place] [address], USAEPISNONE SEENNormalFEW,OCC,NONE SEENThe [facility] HospitalComment on above:Order Comment: No: Do not add to previous draw CV'D BY IMM [facility] AT 1240Performed By: #### 70705 #### [facility] [place] [address] [place] [address], USAGlucose Ql (U)NegativeNormalNEGATIVEThe [facility] HospitalComment on above:Order Comment: No: Do not add to previous draw CV'D BY IMM LAB AT 1240Performed By: #### 94460 #### [facility] [place] [address] [place] [address], USAHemoglobin Ql (U)TRACE, RESULTS CHECKEDAbnormalNEGATIVEThe [facility] HospitalComment on above:Order Comment: No: Do not add to previous draw CV'D BY IMM LAB AT 1240Performed By: #### 28019 #### [facility] [place] [address] [place] [address], USAKETONENegativeNormalNEGATIVEThe [facility] HospitalComment on above:Order Comment: No: Do not add to previous draw CV'D BY IMM LAB AT 1240Performed By: #### 93945 #### [facility] [place] [address] [place] [address], USALEUK ESTERNegativeNormalNEGATIVEThe [facility] HospitalComment on above:Order Comment: No: Do not add to previous draw CV'D BY IMM LAB AT 1240Performed By: #### 03928 #### [facility] [place] [address] [place] [address], USANitrite Ql (U)NegativeNormalNEGATIVEThe [facility] HospitalComment on above:Order Comment: No: Do not add to previous draw CV'D BY IMM LAB AT 1240Performed By: #### 55031 #### [facility] [place] [address] [place] [address], USApH (U)6.0 [pH]Normal5.0-8.0The [facility] HospitalComment on above:Order Comment: No: Do not add to previous draw CV'D BY IMM LAB AT 1240Performed By: #### 08681 #### [facility] [place] [address] [place] [address], USAProtein Ql (U)NegativeNormalNEGATIVEThe Clermont County HospitalComment on above:Order Comment: No: Do not add to previous draw CV'D BY [facility] AT 1240Performed By: #### [id number] #### [facility] [place] [address] [place] [address], USARBC3-5AbnormalNONE SEENThe Clermont County HospitalComment on above:Order Comment: No: Do not add to previous draw CV'D BY [facility] AT 1240Performed By: #### [id number] #### [facility] [place] [address] [place] [address], USASPEC [id number] [facility] HospitalComment on above:Order Comment: No: Do not add to previous draw CV'D BY [facility] AT 1240Performed By: #### [id number] #### SELECT [facility] [address] [place] [address], USAWBC UA0-2AbnormalNONE SEENThe Clermont County HospitalComment on above:Order Comment: No: Do not add to previous draw CV'D BY IMM LAB AT 1240Performed By: #### [id number] #### [facility] [address] [facility] [place] [address], [facility] Vital Signs Date TimeVital SignValuePerforming DkoasyfeqGlhmqbwo98-23-8279 12:36-0400Body uaiscd027.07 cmRosa M Gonzales MD Work Phone: [phone])065-[address] [place], [place] 7434909-22-2025 12:36-0400 Body mass index (BMI) [Ratio]28.7 kg/w4VsofcotiRosa M Gonzales MD Work Phone: [phone]09-22-2025 12:36-0400 Body haauprijnjd19.9 [degF]Rosa M Gonzales MD Work Phone: 1([phone])181-[address] [place], [place] 7434909-22-2025 12:36-0400 Body wealrs78.07 kgRosa M Gonzales MD Work Phone: [phone]09-22-2025 12:36-0400 Diastolic blood mm[Hg]Rosa M Gonzales MD Work Phone: [phone]09-22-2025 12:36-0400 Heart rate72 /minRosa M Gonzales MD Work Phone: [facility]09-22-2025 12:36-0400 Respiratory rate14 /Humphrey Gonzales MD Work Phone: [phone]09-22-2025 12:36-0400 SaO2% (BldA) [Mass fraction]99 %Rosa M Gonzales MD Work Phone: [phone]09-22-2025 12:36-0400 Systolic blood llakbxqi011 mm[Hg]Rosa M Gonzales MD Work Phone: [phone]09-19-2025 09:00-0400 Diastolic blood dkoyzzfo30 mm[Hg]Avelina Rodriges MD Work Phone: [facility] HospitalOfxwedguvj45-48-9331 09:00-0400Systolic blood ihifxgbu510 mm[Hg]Avelina Rodriges MD Work Phone: [place] [address]Gjkxwiusxx94-50-8293 13:53-0400Body .3 cmRosa M Gonzales MD Work Phone: [place] [address]Kdhshmkazc74-18-9605 13:53-0400Body mass index (BMI) [Ratio]28.81 kg/e4WlenjqnzRosa M Gonzales MD Work Phone: [phone] [address]Kjqwzckcph29-91-6487 13:53-0400Body gdnciy80.71 kgRosa M Gonzales MD Work Phone: [phone] [address]Eqblxdiahx97-59-5815 13:53-0400Diastolic blood wytiblea91 mm[Hg]Rosa M Gonzales MD Work Phone: [facility] HospitalComment on above:laying down- 132/76 P 67, Sitting 110/70 P 64, Standing 104/72 P 0882-50-8745 13:53-0400Heart rate65 /Humphrey Gonzales MD Work Phone: [place] [address]Tlcjxrdfsv16-76-7575 13:53-7789NjW2% (BldA) [Mass fraction]94 %Rosa M Gonzales MD Work Phone: [facility] HospitalAbmdfptpqp28-54-2461 13:53-0400Systolic blood houszrsq300 mm[Hg]Rosa M Gonzales MD Work Phone: [facility] HealthcareComment on above:laying down- 132/76 P 67, Sitting 110/70 P 64, Standing 104/72 P [id number] 11:26-0400Body height 180.3 cmRosa M Gonzales MD Work Phone: [facility] HospitalQmxovmezdj98-86-1025 11:26-0400Body mass index (BMI) [Ratio]28.51 kg/t4VnihrllfRosa M Gonzales MD Work Phone: [phone] [place], [place] [address]Kstrhzblei13-79-0286 11:26-0400Body .72 kgRosa M Gonzales MD Work Phone: [phone] [place], [place] [address]Soilouwnjv31-03-5921 11:26-0400Diastolic blood ihqpsxbb19 mm[Hg]Rosa M Gonzales MD Work Phone: [phone] HospitalCnwqdrtlcv12-08-2587 11:26-0400Heart rate64 /min Rosa M Gonzales MD Work Phone: [phone] HospitalFqwwwtjgld75-72-7235 11:26-4169RcZ7% (BldA) [Mass fraction]93 %Rosa M Gonzales MD Work Phone: [facility] HospitalRwqfhntbfo66-57-8897 11:26-0400Systolic blood mm[Hg]Rosa M Gonzales MD Work Phone: [facility] HospitalLqipbvnpat31-92-8784 08:37-0500Diastolic blood nujwlofu22 mm[Hg]Efren Centeno MD Work Phone: [facility] HospitalLlihlpgiia08-27-1117 08:37-0500Systolic blood vjhptpac866 mm[Hg]Efren Centeno MD Work Phone: [facility] HospitalPjgjnlvbay05-71-3931 15:17-0500Body .3 cmRosa M Gonzales MD Work Phone: [facility] HospitalBfkthqdpqi64-51-7126 15:17-0500Body mass index (BMI) [Ratio]28.28 kg/k3CvnvvqlgRosa M Gonzales MD Work Phone: [facility] HospitalDghjluhlld87-39-5397 15:17-0500Body vqejeu65.99 kgRosa M Gonzales MD Work Phone: [facility] HospitalCakhzblgrn65-94-3539 15:17-0500Diastolic blood iuwpsulz76 mm[Hg]Rosa M Gonzales MD Work Phone: [place] [address]Dfgbzigrxm96-09-1658 15:17-0500Heart rate72 /min Rosa M Gonzales MD Work Phone: [facility] HospitalUtcxaxtgzv58-74-4169 15:17-4037EnO3% (BldA) [Mass fraction]92 %Rosa M Gonzales MD Work Phone: [facility] HospitalRzvvviqqta68-84-6756 15:17-0500Systolic blood wltgccax067 mm[Hg]Rosa M Gonzales MD Work Phone: [place] [address]Ozhwxexeuh74-14-6923 13:54-0500Blood Pressure LocationPatrick BROWER [facility]11-18-2024 13:54-0500Body xtmnujnglmn91.6 [degF]Rejiraghavendra BROWER [facility]11-18-2024 13:54-0500Diastolic blood tkznjksa17 mm[Hg]Reji BROWER [facility] [place] [address]-18-2024 13:54-0500Heart rate67 /minPatrick BROWER [facility] [place] [address]-18-2024 13:54-0500Respiratory rate18 /minPatrick BROWER [facility]11-18-2024 13:54-0500Systolic blood gzbhdgos952 mm[Hg]Reji BROWER [facility]10-14-2024 15:10-0400Body yurorz209.3 Tonnylindamarsha Agustin AGRICULTURAL REAL ESTATE AGENT Work Phone: [phone] [place], [place] [address]Bsvvxgwwiq27-24-3321 15:10-0400Body mass index (BMI) [Ratio]27.89 kg/a3NcnlbNicki Velez AGRICULTURAL REAL ESTATE AGENT Work Phone: [phone] [place] [address]-14-2024 15:10-0400Body wweahx41.72 kgNicki Velez AGRICULTURAL REAL ESTATE AGENT Work Phone: [phone] [place] [address]-14-2024 15:10-0400Diastolic blood eyrorqki70 mm[Hg]Nicki Velez AGRICULTURAL REAL ESTATE AGENT Work Phone: [phone] [place], [place] [address]Nltymhnmfh22-64-2928 15:10-0400Heart rate56 /min Nicki Velez AGRICULTURAL REAL ESTATE AGENT Work Phone: [phone] [place], [place] [address]Nyfnakkhxt88-48-7174 15:10-6785VmP8% (BldA) [Mass fraction]95 %Nicki Velez AGRICULTURAL REAL ESTATE AGENT Work Phone: [phone] [place] [address]-14-2024 15:10-0400Systolic blood rxcqselv340 mm[Hg]Nicki Velez AGRICULTURAL REAL ESTATE AGENT Work Phone: [phone])221-[address] [place], [place] [address]Bbjixzarow67-20-3322 12:00-0400Body nyotwz015.3 Tonnyalec Velez AGRICULTURAL REAL ESTATE AGENT Work Phone: [phone] [place] [address]-11-2024 12:00-0400Body mass index (BMI) [Ratio]27.89 kg/h6DetbzNicki Velez AGRICULTURAL REAL ESTATE AGENT Work Phone: [phone] [place] [address]-11-2024 12:00-0400Body zrodio36.72 kgNicki Velez AGRICULTURAL REAL ESTATE AGENT Work Phone: [phone] [place] [address]-11-2024 12:00-0400Diastolic blood hyagnvdj35 mm[Hg]Nicki Velez AGRICULTURAL REAL ESTATE AGENT Work Phone: [facility] HospitalPamiwagnik65-72-4798 12:00-0400Heart rate69 /min Nikci Velez AGRICULTURAL REAL ESTATE AGENT Work Phone: [facility] HospitalZaytpwwxbw74-03-1281 12:00-4412PdY3% (BldA) [Mass fraction]97 %Nicki Velez AGRICULTURAL REAL ESTATE AGENT Work Phone: [facility] HospitalLodgktcyiq54-35-8316 12:00-0400Systolic blood imbxtqdh132 mm[Hg]Nicki Velez AGRICULTURAL REAL ESTATE AGENT Work Phone: [facility] HospitalOvrosmhhul62-07-8895 10:35-0400Diastolic blood eatuhbda99 mm[Hg]Schmidt Sarmini [facility]09-26-2024 10:35-0400Heart rate60 /minMuhammad Sarmini [facility]09-26-2024 10:35-0400Mean blood jgdeleii09 mm[Hg]Schmidt Sarmini [facility]09-26-2024 10:35-0400 Respiratory rate18 /minMuhammad Sarmini [facility]09-26-2024 10:35-4151BuY1% (BldA) [Mass fraction]93 %Schmidt Sarmini [facility]09-26-2024 10:35-0400 Systolic blood xxtthmat684 mm[Hg]Schmidt Sarmini [facility]09-26-2024 10:25-0400 Diastolic blood ylrcbpoa15 mm[Hg]Schmidt Sarmini [facility]09-26-2024 10:25-0400Heart rate70 /minMuhammad Sarmini [facility]09-26-2024 10:25-0400Mean blood mm[Hg]Schmidt Sarmini [facility]09-26-2024 10:25-0400 Respiratory rate20 /minMuhammad Sarmini [facility]09-26-2024 10:25-2650OlG5% (BldA) [Mass fraction]94 %Schmidt Sarmini [facility]09-26-2024 10:25-0400 Systolic blood ajcijsre789 mm[Hg]Schmidt Sarmini [facility]09-26-2024 10:10-0400Body akdkwxfvuwb51.7 [degF]Schmidt Sarmini [facility]09-26-2024 10:10-0400 Diastolic blood npmisswy80 mm[Hg]Schmidt Sarmini [facility]09-26-2024 10:10-0400Heart rate70 /minMuhammad Sarmini [facility]09-26-2024 10:10-0400Mean blood ctihsttd09 mm[Hg]Schmidt Sarmini [facility]09-26-2024 10:10-0400 Respiratory rate19 /minMuhammad Sarmini [facility]09-26-2024 10:10-9049NfM2% (BldA) [Mass fraction]95 %Schmidt Sarmini [facility]09-26-2024 10:10-0400 Systolic blood atahjxjk07 mm[Hg]Schmidt Sarmini [facility]09-26-2024 10:05-0400 Respiratory rate22 /minMuhammad Sarmini [facility]09-26-2024 09:55-0400 Respiratory rate22 /minMuhammad Sarmini [facility]09-26-2024 08:46-0400Blood Pressure LocationMuhammad Sarmini [address] [place], [place] 3895009-26-2024 08:46-0400Body pwjghacxxbr62.52 [degF]Schmidt Sarmini [address] [place], [place] 3895009-09-2024 09:28-0400 Diastolic blood bbxmfihk07 mm[Hg]Schmidt Sarmini 512-7736Xwvfiy-Vekiy[address] [place], [place] 2614809-09-2024 09:28-0400Mean blood cyhdsper245 mm[Hg]Schmidt Sarmini 290-9637Bvcdgn-Rdujr[address] [place], [place] 2614809-09-2024 09:28-0400Systolic blood mm[Hg]Schmidt Sarmini 210-8507Odpoqx-Nqjzt[address] [place], [place] 2614809-09-2024 09:14-0400Blood Pressure LocationMuhammad Sarmini 974-1725Dyufbo-Tgytw[facility]09-09-2024 09:14-0400Diastolic blood kqzusvjb72 mm[Hg]Schmidt Sarmini 959-9607Edwaty-Flhhf[address] [place], [place] 4215909-09-2024 09:14-0400Heart rate60 /minMuhammad Sarmini 647-3367Svcxae-Jdqzw[address] [place], [place] 4215909-09-2024 09:14-0400Systolic blood jqmatpog260 mm[Hg]Schmidt Sarmini 388-7026Tpihcp-Nkkjj[address] [place], [place] 2614810-03-2022 11:53-0400Blood Pressure LocationPatrick LEONARDA [facility]10-03-2022 11:53-0400Diastolic blood xfgusvew46 mm[Hg]Reji BROWER [facility]10-03-2022 11:53-0400Heart rate63 /minPatrick BROWER [facility]10-03-2022 11:53-0400Respiratory rate18 /minPatrick BROWER [facility]10-03-2022 11:53-0400Systolic blood aevpfhux811 mm[Hg]Reji BROWER [facility]01-07-2022 17:40-0500Diastolic blood mm[Hg]Rosa M Gonzales Work Phone: mp695-1997SE-Cwetn [facility] [address] DO Work Phone: 1(775) 117-355201-07-2022 17:40-0500Systolic blood mm[Hg] Rosa M Gonzales Work Phone: mp910-9099HI-Njaju [facility] [address] DO Work Phone: 1(773) 344-904301-07-2022 15:22-0500Body xyrejr982.34 cmRosa M Gonzales Work Phone: mp918-6047RJ-Fmheh [facility] [address] DO Work Phone: 1(706) 289-401301-07-2022 15:22-0500Body mass index (BMI) [Ratio] 29.57 kg/b5KeuqnupjRosa M Gonzales Work Phone: mp560-0616KL-Hytdu [facility] [address] DO Work Phone: 1(511) 927-181001-07-2022 15:22-0500Body surface area Derived from formula2.16 r2AtifsbpuRosa M Elian Work Phone: mp543-1130RG-Xfawn [facility] [address] DO Work Phone: 1(575) 743-841501-07-2022 15:22-0500Body zegjgk07.16 kgRosa M Elian Work Phone: mp511-8623ZP-Zktbm [facility] [address] DO Work Phone: 1(825) 318-104801-07-2022 15:22-0500Diastolic blood zqtzwpud76 mm[Hg] Rosa M Elian Work Phone: mp682-6403PX-Blldp [facility] [address] DO Work Phone: 1(585) 369-697301-07-2022 15:22-0500Heart rate61 /minRosa M Thorntonhman Work Phone: mp806-1287PB-Hlrlu [facility] [address] DO Work Phone: 1(772) 412-201001-07-2022 15:22-0500Systolic blood lueygjdj020 mm[Hg] Rosa M Elian Work Phone: [phone]-Ttoim [facility] [address] DO Work Phone: Encounters Encounter DateEncounter TypeCare ProviderFacilityStart: 02-20-2025 End: 81-39-7457Jpffzzsue Result EncounterGeneric External Data ProviderNOMS External Department UnsolicitedStart: 02-20-2025 End: 86-86-4607Iphsxwiaz Result EncounterGeneric External Data ProviderNOMS External Department UnsolicitedStart: 01-21-2025 End: 25-04-7255rlrpyfrfvySKJPXV FLETRACYNot AvailableStart: 01-20-2025 End: 45-82-9360Rqjgnyefs Result EncounterGeneric External Data ProviderNOMS External Department UnsolicitedStart: 01-20-2025 End: 10-64-4496Inmkttios Result EncounterGeneric External Data ProviderNOMS External Department UnsolicitedStart: 01-17-2025 End: 54-11-2496Ktbdwgkieran Rodriges MD Work Phone: NOMS [facility] DermatologyStart: 01-17-2025 End: 78-55-1091Vklghc Ced Rodriges MD Work Phone: SULEIMAN Miranda DermatologyStart: 01-17-2025 End: 73-03-1940rktfwgubpxAEHRBGIB WILSONNot AvailableStart: 01-17-2025 End: 98-02-1842Qpiluyf encounter procedureAvelina Rodriges MD Work Phone: SULEIMAN Miranda DermatologyComment on above:Actinic keratosis (Primary Dx); Seborrheic keratosis, inflamed; Encounter for removal of suturesStart: 01-06-2025 End: 37-15-8383kdavncflcpWorzvqviDeclan Gonzales MD Work Phone: [facility] Work Phone: Start: 01-06-2025 End: 86-03-2902Ucdgufd encounter procedurePatricbrian Jolley LEARNING AND DEVELOPMENT ADMINISTRATOR-[facility] Work Phone: Start: 01-03-2025 End: 82-30-3500Oifldp Ced Rodriges MD Work Phone: NOMS Dcy DermatologyStart: 01-03-2025 End: 00-94-2827Hcnxqg Ced Rodriges MD Work Phone: NO Ruben DermatologyStart: 01-03-2025 End: 98-85-7435Jpzmtyx encounter procedureAvelina Rodriges MD Work Phone: SULEIMAN Ruben DermatologyComment on above:Basal cell carcinoma of skin of scalp and neck; Actinic keratosis; Neoplasm of uncertain behaviorStart: 01-03-2025 End: 83-41-3749xzxtqirxcwQHMWIMWC WILSONNot AvailableStart: 12-17-2024 End: 63-12-1463Gdjursvgo Result EncounterGeneric External Data ProviderNOMS External Department UnsolicitedStart: 12-17-2024 End: 47-00-8540Xquavrddo Result EncounterGeneric External Data ProviderNOMS External Department UnsolicitedStart: 12-04-2024 End: 53-18-2292JlmfkcRtnrvvur Hohman MD Work Phone: noDeWitt General HospitalComment on above:History of kidney transplant (HCC)Start: 12-03-2024 End: 52-90-6410Urjtqz Kamala Gonzales MD Work Phone: [facility] MedicineStart: 12-03-2024 End: 94-17-6012Winhcn Kamala Gonzales MD Work Phone: [facility] MedicineStart: 12-03-2024 End: 35-42-4323Qgkbso outpatient visit 25 minutesRosa M Gonzales MD Work Phone: noDeWitt General HospitalComment on above:Dizziness (Primary Dx); Orthostatic hypotension; Gastroesophageal reflux disease without esophagitisStart: 12-03-2024 End: 99-15-5861wzctnepblfLIUYUURA HOHMANNot AvailableStart: 11-15-2024 End: 96-72-7111Tnqmiehab Result EncounterGeneric External Data ProviderNOMS External Department UnsolicitedStart: 11-15-2024 End: 40-66-4393Mpdowfuwu Result EncounterGeneric External Data ProviderNOWA External Department UnsolicitedStart: 11-04-2024 End: 33-37-8354Ifzwkl Ernestine Fishman MD Work Phone: noms [facility] DERMStart: 11-04-2024 End: 46-96-6015Nudzezfrancisco Fishman MD Work Phone: noms [facility] DERMStart: 11-04-2024 End: 03-18-7471Alloiz outpatient visit 15 minutesEmtony Fishman MD Work Phone: noms [facility] DERMComment on above:Seborrheic keratosis (Primary Dx); Lentigines; History of basal cell carcinoma; Actinic keratosis; Neoplasm of unspecified behavior of bone, soft tissue, and skin; Seborrheic keratosis, inflamedStart: 11-04-2024 End: 22-30-6073fyofhepqgiBXQWO A PETITTINot AvailableStart: 10-22-2024 End: 63-03-1688qkykqmghtpXBVM ANDREAUniversity Hospitals Portage Medical Centertart: 10-17-2024 End: 15-03-7126vkaqrkldfpQOVPJ MARVWilson Street Hospitaltart: 10-17-2024 End: 61-84-9193jbedndkqrzWBGY ELTrinity Health System Twin City Medical Centertart: 10-15-2024 End: 12-23-6047Fqkuhrmud Result EncounterGeneric External Data ProviderNOMS External Department UnsolicitedStart: 10-15-2024 End: 85-89-3575Gulyhvypg Result EncounterGeneric External Data ProviderNOMS External Department UnsolicitedStart: 10-14-2024 End: 38-22-3476Lxendvuzy Result EncounterGeneric External Data ProviderNOMS External Department UnsolicitedStart: 10-14-2024 End: 91-27-2449Cbgxcxgxm Result EncounterGeneric External Data ProviderNOMS External Department UnsolicitedStart: 10-03-2024 End: 95-31-9242Rqwhfv flowsCarolin Gonzales MD Work Phone: NOMS FNR FMStart: 10-03-2024 End: 32-73-2953Noqnxs Kamala Gonzales MD Work Phone: noms FNR FMStart: 10-03-2024 End: 95-85-1257Frgzpvndf encounterRosa M Gonzales MD Work Phone: NOMS FNR FMStart: 10-03-2024 End: 82-27-1835Jiuqabm encounter statusRosa M Gonzales MD Work Phone: [facility] Work Phone: Start: 10-03-2024 End: 69-05-4866Kwhrykvq preventive med est patient 65yrs& olderRosa M Gonzales MD Work Phone: NOZP FNR FMComment on above:Wellness examination (Primary Dx); [...] polyneuropathy (HCC); Cardiomyopathy, unspecified (HCC)Start: 10-03-2024 End: 61-98-8413pigktdvtpmRORPHQTN BARBARADelfino AvailableStart: 09-18-2024 End: 00-40-8060nakhofhgfpQNIO [facility] Healthtart: 09-10-2024 End: 38-61-5918Ynzyrfqxr Result EncounterGeneric External Data ProviderNOMS External Department UnsolicitedStart: 09-10-2024 End: 02-45-2327Jrhjaltto Result EncounterGeneric External Data ProviderNOMS External Department UnsolicitedStart: 08-09-2024 End: 84-20-4675Edqrigeym Result EncounterGeneric External Data ProviderNOMS External Department UnsolicitedStart: 08-09-2024 End: 74-27-7250Kmonqsate Result EncounterGeneric External Data ProviderNOMS External Department UnsolicitedStart: 06-19-2024 End: 62-66-4222Kknshkj encounter procedureEmtony Fishman MD Work Phone: noms SWS DERMComment on above:Basal cell carcinoma of skin of other part of trunk (Primary Dx)Start: 06-19-2024 End: 00-34-9629gqkrscdgjiYJWIW A PETITTINot AvailableStart: 06-14-2024 End: 80-58-5336Mzqyvvq encounter procedureEfren Centeno MD Work Phone: noms SWS DERMComment on above: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 (Primary Dx)Start: 06-14-2024 End: 17-69-9191hiiemwasirAXYAWP E FLEMINGNot AvailableStart: 06-12-2024 End: 42-60-6443btbazxdkqmTOPTZ [facility] Institutetart: 06-07-2024 End: 68-93-2352Ivvsmodei Result EncounterGeneric External Data ProviderNOMS External Department UnsolicitedStart: 06-07-2024 End: 61-81-0732Xvsjvyodj Result EncounterGeneric External Data ProviderNOMS External Department UnsolicitedStart: 05-14-2024 End: 52-11-7517xggjxyqgcpHZYQ [facility] Centertart: 05-07-2024 End: 20-16-0781Jjnohzfyz Result EncounterGeneric External Data ProviderNOMS External Department UnsolicitedStart: 05-07-2024 End: 26-19-0991Wqofayvfv Result EncounterGeneric External Data ProviderNOMS External Department UnsolicitedStart: 05-02-2024 End: 48-29-8060Ddfegffrancisco Fishman MD Work Phone: no[facility] DERMStart: 05-02-2024 End: 37-02-7914Ypoinwkieran Fishman MD Work Phone: [facility] DERMStart: 05-02-2024 End: 54-00-7079Crpeei outpatient visit 15 minutesEmily Gabbi Fishman MD Work Phone: noms [facility] DERMComment on above:Seborrheic keratosis (Primary Dx); Actinic keratosis; Lentigines; Neoplasm of unspecified behavior of bone, soft tissue, and skin; History of basal cell carcinoma; History of SCC (squamous cell carcinoma) of skinStart: 05-02-2024 End: 44-96-3483jzeuannqprODYUI A PETITTINot AvailableStart: 04-11-2024 End: 93-95-8149pxpqoolqctBYMXZ SAVChildren's Hospital for Rehabilitationtart: 04-04-2024 End: 73-83-4649Czyajbqqf Result EncounterGeneric External Data ProviderNOMS External Department UnsolicitedStart: 04-04-2024 End: 39-16-7026Omrzeanhj Result EncounterGeneric External Data ProviderNOMS External Department UnsolicitedStart: 03-21-2024 End: 78-22-4283Ibecdl outpatient visit 15 minutesRosa M Gonzales MD Work Phone: NOMS FNR FMComment on above:Herpes zoster without complication (Primary Dx); Elevated fasting glucoseStart: 03-21-2024 End: 92-86-0448oetiarpgjiHYWDQUXC HOHMANNot AvailableStart: 03-21-2024 End: 75-32-6417Dzvqlk Kamala Gonzales MD Work Phone: NONY FNR FMStart: 03-21-2024 End: 55-89-0121Ylrtdx Kamala Gonzales MD Work Phone: NOMS FNR FMStart: 03-18-2024 End: 87-58-8800vrsyzacjuuDHBMSt. Mary's Medical Centertart: 03-05-2024 End: 48-05-4559Chbmwyplh Result EncounterGeneric External Data ProviderNOMS External Department UnsolicitedStart: 03-05-2024 End: 47-92-5736Zrpcgjunp Result EncounterGeneric External Data ProviderNOMS External Department UnsolicitedStart: 03-04-2024 End: 22-95-8896gtwsceueilCqddaso R WATERSFacility:EU BellevueStart: 03-04-2024 End: 08-51-2220Xlxtwqe encounter procedureReji BROWER [facility] start: 02-01-2024 End: 41-80-9561Zjeqqhzul Result EncounterGeneric External Data ProviderNOMS External Department UnsolicitedStart: 02-01-2024 End: 92-04-3994Qozlfeods Result EncounterGeneric External Data ProviderNOMS External Department UnsolicitedStart: 01-29-2024 End: 85-46-2210Yrcsco outpatient visit 15 Garrymarsha Agustin COLLAZO Work Phone: NOMS FNR FMComment on above:Herpes zoster with complication (Primary Dx); Type 2 diabetes mellitus without complications (CMS/HCC); Immunodeficiency, unspecified (CMS/HCC); Chronic systolic (congestive) heart failure (CMS/HCC); Chronic obstructive pulmonary disease, unspecified (CMS/HCC); Cardiomyopathy, unspecified (CMS/HCC)Start: 01-29-2024 End: 10-89-1677ehlbgjbhrxALXUX KAMPFERNot AvailableStart: 01-29-2024 End: 88-67-3806horpfomhbtJvxpxby R WATERSFacility:EU BellevueStart: 01-29-2024 End: 81-29-4371Rgzwpzd encounter procedureReji BROWER [facility] start: 01-26-2024 End: 43-00-4316Qnxczg outpatient visit 15 minutesSamary Velez NP Work Phone: NOMS FNR FMComment on above:Encounter for immunization (Primary Dx); Tinea corporis; Type 2 diabetes mellitus without complications (CMS/HCC)Start: 01-26-2024 End: 74-68-7052qbhjknvrckQMXSI KAMPFERNot AvailableStart: 01-25-2024 End: 20-52-7661Lupjuwxis Result EncounterGeneric External Data ProviderNOMS External Department UnsolicitedStart: 01-25-2024 End: 72-52-1539Ixulutjbi Result EncounterGeneric External Data ProviderNOMS External Department UnsolicitedStart: 01-11-2024 End: 87-47-0469zqayizsszwJkdnrweh Talal GertrudisiFacility:FTMCStart: 01-11-2024 End: 15-44-3582Flsmeaj encounter procedureMuhammad Talal Ishanminkennedi [facility] Start: 12-28-2023 End: 47-47-1241Kumpfrdxe Result EncounterGeneric External Data ProviderNOMS External Department UnsolicitedStart: 12-28-2023 End: 03-19-3040Depdaoozq Result EncounterGeneric External Data ProviderNOMS External Department UnsolicitedStart: 12-25-2023 End: 84-88-4152yxwfwhpeuvZwuvdjwo Talal SarminiFacility:[place] DHStart: 12-25-2023 End: 68-20-1003Jwygcln encounter procedureMuamador Graham [phone]-[facility]ajT[facility] Start: 12-08-2023 End: 84-68-0196SivndjJtrhmilu Hohman MD Work Phone: [facility] FNR FMComment on above:History of kidney transplant ([facility])Start: 12-07-2023 End: 07-90-1439Chfeutbjy Result EncounterGeneric External Data ProviderNOMS External Department UnsolicitedStart: 12-07-2023 End: 60-40-6440Drbaqyyga Result EncounterGeneric External Data ProviderNOMS External Department UnsolicitedStart: 86-52-7685Udgpedcey Result Encounter Generic External Data ProviderNOMS External Department UnsolicitedStart: 80-05-7994Sjthzbbio Result EncounterGeneric External Data ProviderNOMS External Department UnsolicitedStart: 08-18-2022 End: 28-72-4526nlxednuyexFW DOCTOR MISCFacility:D9Inaup: 07-19-2022 End: 97-77-0471finzskemswIN DOCTOR MISCFacility:Z7Otuhr: 06-01-2022 End: 63-67-6195lusyykmtfaIT DOCTOR MISCFacility:T0Nmhwh: 05-30-2022 End: 41-40-8576cfrstlwaoeNA AIME VILLASENORFacility:K6Kvwrc: 05-03-2022 End: 22-79-0637eruzzmpwvlRP DOCTOR MISCFacility:B7Jlcea: 04-14-2022 End: 84-50-9553xerixtsrdsXZ DOCTOR MISCFacility:Q5Csimc: 03-25-2022 End: 52-66-0040nipjjxdhrwXY ROSA M GONZALESFacility:R8Urrbr: 02-24-2022 End: 94-15-5926xrgtqcddswQG DOCTOR MISCFacility:W2Gnynu: 01-17-2022 End: 60-86-7847Fxjugdh encounter Veronica BROWER [facility] Andreea start: 09-28-2021 End: 14-59-2196guuecddylpAU FEDERICO ELTAHAWYFacility:L1Gfabq: 05-15-2021 End: 14-18-5518hoahbsefqaYLUNWIRG HOHMANFacility:[facility]tart: 62-69-9221Pyvbxa outpatient visit 25 minutesRosa M Gonzales Work Phone: [phone]-Kigqk [facility] [address] DO Work Phone: Start: 12-02-2020 End: 08-87-1180Ecaaowxepq and management of inpatientSARMED MANSURFacility:[facility] Start: 12-01-2020 End: 23-13-9015Yaanodzva department patient visitREFERRED SELFFacility:[facility] Start: 10-29-2020 End: 68-74-1534lfracjcbmdFOOHFEYF HOHMANFacility:[facility]tart: 08-02-2020 End: 81-18-9193Gloxrtznok and management of inpatientANAS RENNOFacility:[facility] Procedures DateProcedureProcedure DetailPerforming ClinicianStart: 29-50-9882HBP CBC WITH AUTO DIFFGeneric External Data ProviderStart: 97-08-7711QUN CBC WITH AUTO DIFF Generic External Data ProviderStart: 01-17-2025 End: 12-09-1761AECVROYPOEE SKIN LESIONAvelina Rodriges MD Work Phone: Start: 79-58-8288YZIE REPAIRAvelina Rodriges MD Work Phone: Start: 20-39-0388IOPYFYOECVT SKIN LESIONAvelina Rodriges MD Work Phone: Start: 00-90-0853HJRN SURGERYAvelina Rodriges MD Work Phone: Start: 67-00-0367QGE CBC WITH AUTO DIFFGeneric External Data ProviderStart: 45-98-9018MRS CBC WITH AUTO DIFFGeneric External Data ProviderStart: 11-04-2024 End: 09-85-7116YBII / NAIL BIOPSYEmily Gabbi Fishman MD Work Phone: Start: 11-04-2024 End: 55-97-6412KGDCMKDBUIN SKIN LESIONEmily Gabbi Fishman MD Work Phone: Start: 37-38-2817DA ECHO DOPPLER COMPLETEGeneric External Data ProviderStart: 34-68-7198HAL MAGNESIUMGeneric External Data ProviderStart: 88-13-6181FSV PHOSPHOROUSGeneric External Data ProviderStart: 62-15-9534AEY URIC ACIDGeneric External Data ProviderStart: 11-34-2014APT CMP (CMP) (FOR REMOTE [facility] USE)Generic External Data ProviderStart: 86-40-5616PCODH BILIRUBIN, DIRECTGeneric External Data ProviderStart: 08-33-7185Htaealgqfm A1c/Hemoglobin.total in BloodRosa M Gonzales MD Work Phone: Start: 77-50-8279VOV CBC WITH AUTO DIFFGeneric External Data ProviderStart: 45-97-1934RDZ CBC WITH AUTO DIFFGeneric External Data ProviderStart: 21-54-9163KRVNDIIFCUF OF LESIONEmily Gabbi Fishman MD Work Phone: Start: 65-30-1446DWWK SURGERYThtrever Centeno MD Work Phone: Start: 59-09-2918CZM HEMOGLOBIN S7REirfyyt External Data ProviderStart: 46-39-5464VRD CBC WITH AUTO DIFFGeneric External Data ProviderStart: 05-02-2024 End: 81-03-3400RZYU / NAIL BIOPSYEmtony Fishman MD Work Phone: Start: 46-36-7672OJKPOLUKMSN SKIN LESIONEmily Gabbi Fishman MD Work Phone: Start: 93-42-2068QXH CBC WITH AUTO DIFFGeneric External Data ProviderStart: 28-42-3776Spylyxeiir glycosylated u1zHhbtgaobRosa M Gonzales MD Work Phone: Start: 16-35-2826JPV CBC WITH AUTO DIFFGeneric External Data ProviderStart: 07-99-0173SGH CBC WITH AUTO DIFFGeneric External Data ProviderStart: 96-49-5541NkqsmpsnwyzEykfy Kamdiaedinson AGRICULTURAL REAL ESTATE AGENT Work Phone: Start: 08-43-8040RMTX PSA, DIAGNOSTICGeneric External Data ProviderStart: 57-54-3048UtpbfexbmmnFrrkn Kampfer AGRICULTURAL REAL ESTATE AGENT Work Phone: Start: 54-91-7891GqoikcswgzgDntcyvks Sarmini Start: 64-57-0664BcdqctaryjgfeawdsxoqobadceXmumreud Sarmini Start: 85-94-6199SYX CBC WITH AUTO DIFFGeneric External Data ProviderStart: 23-72-6316Qmhzbgt of renal transplantMuhammad Talal Ishanmini Start: 83-10-9868HH ECHO DOPPLER COMPLETEGeneric External Data ProviderStart: 27-29-0222DUVQELKEBC (FK506), BLOODGeneric External Data ProviderStart: 93-19-0591Stdwsoivz total nephrectomyReji BROWER Start: 69-85-6559Myhbuub of placement of stent in anterior descending branch of left coronary arteryStatus post insertion of drug- eluting stent into left anterior descending (LAD) artery for coronaryartery diseaseGeneric ProviderStart: 68-61-9167TOIPIPCRLHGK OF OTHER GAS INTO RESP TRACT, VIA OPENINGSARMED MANSURStart: 50-86-9836IAEGSVRPP REMDESIVIR IN PERIP VEIN, PERC, NEW TECH 5OMAR N HORANIStart: 96-73-2570ZBQWTBLFYFNX OF OTHER GAS INTO RESP TRACT, VIA OPENINGOMAR N HORANIStart: 20-65-0450Nntauwb of renal transplantHistory of kidney transplantGeneric ProviderStart: 01-01-2018 Transplant of kidneyReji BROWER Comment on above:Pt has three kidneysStart: 02-01-2013 ColonoscopyGeneric ProviderBilateral vasectomyReji BROWER Cardiac catheterizationRosa M Gonzales Work Phone: ColonoscopyMuhammad Gladys Coronary artery bypass graftJennifer R Janet Work Phone: Coronary artery bypass grafts x 3Patrick LEONARDA Creation of graft fistula for dialysisGagandeepnnifer R Janet Work Phone: Extraction of wisdom toothJennifer R Janet Work Phone: History of placement of stent for coronary artery diseaseHx of heart artery stentRosa M Gonzales MD Work Phone: Comment on above:Problem List clean-up per request of Phys. EHR CmteHistory of renal transplantRenal transplant recipientRosa M R Janet Work Phone: History of renal transplantKidney transplanted( Confirmed )Reji BROWER History of renal transplantHistory of kidney transplant ([facility])Rosa M Gonzales MD Work Phone: History of renal transplantHistory of kidney transplant ([facility])Rosa M Gonzales MD Work Phone: History of renal transplantHistory of kidney transplant ([facility])Rosa M Gonzales MD Work Phone: History of renal transplantHx of kidney transplant Rosa M Gonzales MD Work Phone: Comment on above:2018History of renal transplantRenal transplant recipientRosa M Gonzales MD Work Phone: Comment on above:2018Insertion of pacemaker pulse generatorRosa M Gonzales Work Phone: Placement of stent in cardiac conduitReji BROWER Total colonoscopyAnnegloria R Janet Work Phone: Transplant of kidneyAnneifer R Janet Work Phone: Plan of Treatment DateCare ActivityDetailAuthorStart: 27-75-4503Qejzcftzv for malignant neoplasm of colonNOMS HealthcareStart: 98-37-7741Yvunrqvef for malignant neoplasm of colonNOMS HealthcareStart: 06-19-2026Medicare Annual Wellness (AWV)Medicare Annual Wellness (AWV)[facility] HealthcareStart: 07-22-2025 End: 53-91-2702Iaptcud encounter aijwshkrc16/07/2026 1:15 PM EDT Office [facility] [address] [place] [address] Alicia Fishman MD [address] [place] [address] [facility] DermatologyStart: 01-21-2025 End: 89-56-6274Hvufddcu Gubxmjr6801/21/2025 11:00 AM EDT Clinical Support [facility] [address] [place] [address] [facility]EDundy [facility] MedicineStart: 01-17-2025 End: 56-35-2259Ssjzrfk encounter ooyyglafe12/03/2025 12:15 PM EDT Office Visit [facility] [address] [place], [place] Avelina Rodriges MD [address] [place] [address] [facility]ENTERMarcelo [place] DermatologyStart: 01-03-2025 End: 14-17-8020Vlnnevg encounter procedureNOMS Miranda DermatologyComment on above:ArrivedStart: 74-09-0287BVTSS-19 Vaccine ( season)COVID-19 Vaccine ( season)NOMS HealthcareStart: 62-77-1703Ricbycwvn vaccinationInfluenza Vaccine (#1)[facility]OM[facility] HealthcareStart: 43-20-3456Quvdeexrnr A1c measurementDiabetes: Hemoglobin L0DSBQA HealthcareStart: 12-03-2024 End: 73-11-8457Hrwznav encounter jjetviyjd06/19/2025 2:00 PM EDT Office Visit [facility] [address] [place] [address] Rosa M Gonzales MD [address] [place], [place] [id number] ArrivedNOMS [facility] MedicineComment on above:Arrived Start: 11-04-2024 End: 86-40-3048Tmcmnsd encounter procedureNOMS SWS DERMComment on above:Arrived Start: 58-58-1180Hfgsztfo screeningDiabetes: Retinopathy ScreeningNOWA HealthcareStart: 10-03-2024 End: 78-22-5200Dvdbgpa encounter procedureNOMS FNR FMComment on above:Arrived Start: 04-11-2025Medicare Annual Wellness (AWV)Medicare Annual Wellness (AWV) NOM[facility] HealthcareStart: 06-19-2024 End: 71-77-1262Tmlickx encounter flsodadfw58/05/2025 10:50 AM EST Procedure Visit [facility] [address] [place] [phone] Alicia Fishman MD [address] [place] [address] NOMS SWS DERMStart: 06-14-2024 End: 76-22-3777Uzjjzje encounter cyzuvzdkt82/28/2025 8:30 AM EST Office Visit [facility] [address] [place] [address] Efren Centeno MD [address] [place] [address] NOMS SWS DERMStart: 45-94-9742Xyocirfzsg A1c measurementDiabetes: Hemoglobin V5LYDKB HealthcareStart: 97-03-3308Ecynd screening for proteinDiabetes: Urine Protein ScreeningNOWA HealthcareStart: 05-02-2024 End: 93-73-6623Xrthpml encounter procedureNOMS SWS DERMComment on above:Arrived Start: 03-21-2024 End: 40-22-9135Kjpiglc encounter bjrqxywcl06/05/2024 3:30 PM EST Office Visit [facility] [address] [facility] [address] Rosa M Gonzales MD [address] [place] [place], [place] [phone] [facility] FNR FMComment on above:ArrivedStart: 34-36-8032Ezvtkxfyh vaccination Influenza Vaccine (#1)[facility] HealthcareStart: 07-25-2024Medicare Annual Wellness (AWV)Medicare Annual Wellness (AWV)[facility] HealthcareStart: 10-30-2023 End: 76-87-4738Hbquxca encounter olwhexipj90/15/2024 10:05 AM EDT Office Visit [facility] [address] [place] [address] Alicia Fishman MD [address] [place] [address] [facility] DERMStart: 83-20-4143Vbbmweiugm A1c measurementDiabetes: Hemoglobin D1JPJNI HealthcareStart: 98-46-2526Lrjpamife for malignant neoplasm of colonNOMS HealthcareStart: 90-33-0125Itpbkhgqzpry Vaccine: Pediatrics (0 to 5 Years) and At-Risk Patients (6 to 64 Years) (1 of 2 - PCV)Pneumococcal Vaccine: Pediatrics (0 to 5 Years) and At-Risk Patients (6 to 64 Years) (1 of 2 - PCV)[facility] HealthcareStart: 21-65-1702Xkbek screening for proteinDiabetes: Urine Protein ScreeningTHE [facility] HealthcareStart: 1960 Screening for malignant neoplasm of colonNOMS HealthcareDermatopathology exam Dermatopathology exam Pathology and Cytology Timed Neoplasm of unspecified behavior of bone, soft tissue, and skin Release Upon Ordering for 1 Occurrences starting 05/02/2024[facility] Healthcare Work Phone: comment on above:Release Upon Ordering for 1 Occurrences starting 05/02/2024Dermatopathology examDermatopathology exam Pathology and Cytology Timed Neoplasm of unspecified behavior of bone, soft ti ssue, and skin Release Upon Ordering for 1 Occurrences starting 11/04/2024[facility] Work Phone: comment on above:Release Upon Ordering for 1 Occurrences starting 11/04/2024 Immunizations Immunization DateImmunizationNotesCare RebozoooFabejsuk86-76-3453szxcubmyu, seasonal, injectable, preservative freeGeneric [facility]10-11-2024 influenza, seasonal, injectable, preservative freeNicki Velez NP Work Phone: [facility] HospitalOcjzvceeto92-47-6745zbrtxtytj virus vaccine, unspecified formulationAlicia Fishman MD Work Phone: [facility] HospitalQqglzpdzgc96-22-9577ncitfzotl virus vaccine, unspecified formulationRosa M Gonzales MD Work Phone: [phone]-OerkyTogus Va [facility] Center [facility]estive Utmcyd02-23-3564 influenza, injectable, quadrivalent, preservative freeGeneric [facility] HospitalYjaxtggsya16-36-3172xcigjlqam virus vaccine, unspecified formulationMuhammad Sarmini 822-8525Lxbvyk-ZupjkMercy Health St. [facility]09-29-2022 influenza, injectable, quadrivalent, preservative freeGeneric [facility] HospitalFmawjygiuh76-39-2836Osqbdac Bivalent Booster VaccinationGeneric [facility] HospitalWjsmtduevr63-83-4281Wkzzatd SARS-CoV-2 50mcg/0.5mL BoosterGeneric [facility] HospitalGlnnttwzpr65-00-5191MXJC-JnN-4, UnspecifiedGeneric [facility] 69-56-8516XBPP-CoV-2 (COVID-19) mRNA-1273 vaccineMuhammad Sarmini 762-8164Qkurcp-HpdvxMercy Health St. Anne HospitalComment on above:Result Comment: 2023-12-22: MQB2141-84-8717ogkbyhgjn virus vaccine, unspecified formulationMuhammad Sarmini 305-3762Rjtqlp-DqjvaMercy Health St. Anne Hospital10-18-2021 Seasonal, quadrivalent, recombinant, injectable influenza vaccine, preservative freeJennifer R Janet Work Phone: [phone]-BtpvlNew [facility] Hospital 108 DO Work Phone: [phone]) [phone] COVID-19 Vaccine 100 MCG/0.5ML Intramuscular SuspensionJennifer R Janet Work Phone: [phone]-KxxksTogus Va Medical Center Digestive HealthComment on above:Result Comment: 2023-12-22: DKD3181-88-9635Odwypns COVID-19 Vaccine 100 MCG/0.5ML Intramuscular SuspensionJennifer R Janet Work Phone: [phone]-XwcnbTogus Va Medical Center Digestive HealthComment on above:Result Comment: 2023-12-22: VRD2433-47-0809Xkrnuqe COVID-19 Vaccine 100 MCG/0.5ML Intramuscular SuspensionJennifer R Janet Work Phone: [phone]-XvcgaTogus Va Medical Center Digestive HealthComment on above:Result Comment: 2023-12-22: SRJ9997-17-5342nwgkpbpwj virus vaccine, unspecified formulationMuhammad Sarmini 715-0537Kkggbr-SjrdgMercy Health St. Anne Hospital10-12-2020 influenza, seasonal, injectableGagandeepnnifer R Janet Work Phone: [phone]-[place]aapq[place] [address] [place] Work Phone: [phone] virus vaccine, unspecified formulationMuhammad Sarmini 189-0704Xltqsi-VkvhsTogus Va Medical Center Digestive Xehufp61-50-5535 Seasonal trivalent influenza vaccine, adjuvanted, preservative freeGeneric ProviderReynolds [facility] General Memorial HospitalUswmxigncs88-35-1659uuykqgoya virus vaccine, unspecified formulationJennifer R Janet Work Phone: [phone]-LomvfTogus Va Medical Center Digestive Eexrpj61-21-7011 influenza, seasonal, injectableGeneric [facility]10-22-2019 influenza virus vaccine, unspecified formulationMuhammad Sarmini 437-8511Ggocfk-Ujuxu[address] [place], [place] [address]10-22-2019 Seasonal, quadrivalent, recombinant, injectable influenza vaccine, preservative freeJennifer R Janet Work Phone: [phone]-VvpwnC[place] [address] DO Work Phone: [phone] virus vaccine, unspecified formulationMuhammad Sarmini 902-2038Mwapec-YmjphMercy Health St. Anne Hospital01-25-2019 influenza, injectable, quadrivalent, preservative freeJennifer R Janet Work Phone: [phone]-JiqvoC[place] [address] DO Work Phone: 1([phone]omrr virus vaccine, unspecified formulationMuhammad Sarmini 958-2996Jtrrcz-GhtgtMercy Health St. Anne Hospital11-02-2018 influenza, injectable, quadrivalent, preservative freeJennifer R Janet Work Phone: [phone]-BekgpC[place] [address] DO Work Phone: 1(539) [phone]dsfs virus vaccine, unspecified formulationMuhammad Sarmini 250-7255Xaeapm-SeqxbMercy Health St. Anne Hospital02-22-2018 influenza, injectable, quadrivalent, preservative freeJennifer R Janet Work Phone: mp124-3000QX-ZyndoC[place] [address] DO Work Phone: 1(857) [phone]ufuid virus vaccine, unspecified formulationMuhammad Sarmini 700-0453Evxfrc-MvmgpMercy Health St. Anne Hospital09-01-2017 influenza, injectable, quadrivalent, contains preservativeJennifer R Janet Work Phone: [phone]-HrfzrC[place] [address] DO Work Phone: [phone]hatbi virus vaccine, unspecified formulationMuhammad Sarmini 935-3870Zobwyb-ReuihMercy Health St. Anne Hospital10-14-2015 influenza, seasonal, injectableRosa M Gonzales Work Phone: [phone]-KdneoNew Prague Hospital 250 DO Work Phone: [phone]jhz SARS-CoV-2 VaccinationRosa M Gonzales MD Work Phone: [facility] HospitalDcetoepygh03-70-5924ofivytwif virus vaccine, whole virusRosa M Gonzales Work Phone: [phone]-ObfhpNew Prague Hospital 250 DO Work Phone: [phone]) [phone]b, wholeMuhammad Sarmini 839-1969Ypgxgc-EbjizTogus Va Medical Center Digestive HealthNEGATED: Highlighted row has not occurred!49-51-7239dftywycit virus vaccine, unspecified formulationMuhammad Sarmini 885-3437Lecgia-FginvTogus Va Medical Center Digestive Health Payers DatePayer CategoryPayerPolicy [id number] Health [id number] 2024Medicare (Managed Care)[facility] MEDIC[facility] ADVANTAGE [id number] Health [id number] Health Insurance [id number] 2016Medicare [id number] 2.16.840.1.813861.3.57[id number] 2.16.840.1.676570.3.57[id number] 2.16.840.1.839973.3.579.2.4[id number] 2.16.840.1.297456.3.579.[id number] 2.16.840.1.792990.3.579.2.77708-44-8695Mmdiefr4323714 2.16.840.1.130282.3.579.2.25253-27-3327Eirfdzf7085653 2.16.840.1.041777.3.579.2.24212-07-8575Zkrmdym9894778 2.16.840.1.715941.3.579.2.14972-98-5284Dbcrqip5406381 2.16.840.1.487247.3.579.2.04892-34-9261Wzclllu3257987 2.16.840.1.764292.3.579.2.48919-53-6003Klqrhih9964944 2.16.840.1.687400.3.579.2.96071-58-7426Chksxax5892662 2.16.840.1.643696.3.579.2.41961-91-7901Mhqaovf4634413 2.16.840.1.325633.3.579.2.85017-98-8955Pocfkyw5772677 2.16.840.1.454576.3.579.2.28638-41-8243Hlekgkk01045353 2.16.840.1.056610.3.579.2.04050-95-7772Skdgiiv29451405 2.16.840.1.173376.3.579.2.19455-00-5710Fzngaqm23385370 2.16.840.1.685266.3.579.2.67789-60-0657Winyohi67890526 2.16.840.1.340579.3.579.2.80156-67-6370Jqxnplq32812165 2.16.840.1.528311.3.579.2.421061-46-9889Uhpnson65702377 2.840.1.598554.3.579.2.050236-64-8102Lempkkt97759029 2.840.1.875046.3.579.2.603917-26-4422Alvcalz28872355 2.0.1.719214.3.579.2.365418-63-4322Vphczgx57234517 2.840.1.751530.3.579.2.938488-03-1355Zogepwp32333984 2.840.1.755019.3.579.2.458737-24-2421Yqmgkmt1593871 2.0.1.911368.3.579.2.229244-54-9790Zaztlad6458140 2.840.1.644390.3.579.2.499340-02-5087Lkqpgya2762071 2.840.1.637185.3.579.2.910867-60-6154Cdkgkds2312294 2.840.1.161028.3.579.2.394890-90-8540Qdskrhx5834565 2.840.1.060612.3.579.2.612789-46-6097Qfxexdc9321101 2.16.840.1.868690.3.579.2.1259 [id number] 1960Private Health [id number] [id number] Social History DateTypeDetailFacilityStart: 11-01-2022 End: 80-87-4734Ya alcohol useNo alcohol useNOMS HealthcareComment on above:1-2 cups of coffee daily.;Quit in 2008;Start: 01-01-2020 End: 54-40-2701Mcgtrtc smoking statusEx-smoker (finding)[facility] start: 11-01-2022 End: 17-84-3938Pvb Assigned At [facility] End: 18-42-5468Rkcqdiz of tobacco useCurrent smokerNOMS Healthcare End: 83-13-8879Wuppgbn of tobacco useCigarette SmokerNOMS HealthcareStart: 11-06-2022 End: 70-85-2524Baepfun use and exposureSmokeless tobacco non-userNOMS Healthcare Start: 05-01-2023 End: 40-41-0584Qiobagc intakeEx-drinker (finding)[facility]S HealthcareWithin the last year, have you been afraid of your partner or ex-partner?NoNOMS HealthcareDo you belong to any clubs or organizations such as advent groups, unions, fraternal or athletic groups, or school groups?YesNOMS HealthcareAre you now , , , , never or living with a partner?MarriedNOMS HealthcareHow often to you have a drink containing alcohol?Monthly or lessNOMS HealthcareHow many standard drinks containing alcohol do you have on a typical day?1 or 2NOMS HealthcareHow often do you have 6 or more drinks on 1 occasion? NeverNOMS HealthcareStart: 57-44-7066Ftz hard is it for you to pay for the very basics like food, housing, medical care, and heatingNot hard at allReynolds County General Memorial HospitalDo you feel stress - tense, restless, nervous, or anxious, or unable to sleep at night because yourmind is troubled all the time - these days [OSQ] Not at [facility](I/We) worried whether (my/our) food would run out before (I/we) got money to buy more.Never trueTHE [facility] HealthcareStart: 02-16-2023 Alcohol CommentCaffeine intake : 1-2 cups per dayReynolds County General Memorial HospitalStart: 43-73-7313Knn Assigned At BirthNot on fileReynolds County General Memorial HospitalStart: 87-46-3358Qnjyvg identityIdentifies as male gender (finding)[facility] HospitalSexHorton Medical Center (finding) [facility] Hospitaltart: 78-92-6869Xrw Assigned At [facility] Medical Equipment Procedure CodeEquipment CodeEquipment Original TextEquipment IdentifierDates Insertion, pacemakerEndocardial pacing lead ()[id number] FDAStart: 67-95-1183Toqhiobmo, pacemakerEndocardial defibrillation lead ()[id number] FDAStart: 39-24-5977Dcnaabjsk, pacemakerDual-chamber implantable defibrillator ()[id number] FDAStart: 62-33-008037181078Eeppp: 10-03-2024 End: 87-24-2803Meuhaox artery closure plug/patch, synthetic polymer ()[id number] FDAStart: 12-09-2020 Functional Status ClswLvtcgprffjCsxhjlAvbtkcpv13-17-7782Ihyvequ Health Questionnaire 2 item (PHQ- 2) [Reported][facility] HospitalWetzdfemiy15-05-3762Sspcekb Health Questionnaire 2 item (PHQ- 2) [Reported][facility] HospitalYbmypcxygf99-04-7329Weintueyah StatusN/AExec[facility]09-26-2024Functional StatusN/AFWVUMedicine [facility] Hospital09-09-2024Functional StatusN/AFisherGrand Lake Joint [facility] Digestive Npvkkg54-55-4891Rnkthppsjq StatusN/AExec[facility] Clinical Notes 08-20-2020 to 01-17-2025 Note Date & KdshMmriBxrgkljy94-05-4784 History of Present illness Narrative* Avelina Rodriges [...] Performed: sutures places by urgent care in [place] after injury to finger 2 weeks ago [...] limited to risks of scarring, darker or medical records coder pigmentary changes, recurrence, incomplete removal and infection. [...] 2. SEBORRHEIC KERATOSIS, INFLAMED Right Occipital Scalp [place] and brown stuck on verrucous scaly papule [...] limited to risks of scarring, darker or medical records coder pigmentary changes, recurrence, incomplete removal and infection. [...] 6 months skin exam documented in this encounterReynolds County General Memorial HospitalDnbbjcqrjn97-01-3166 History of Present illness Narrative* Avelina Rodriges [...] OF SCALP AND NECK Right Parietal Scalp [place] macule at biopsy site, 1.2 x 1.2 cm Mohs surgery Consent obtained: written (The rationale for Mohs as well as the risks, benefits, and alternatives.The risks of infection, scarring, bleeding, prolonged wound healing, incomplete removal, allergy toanesthesia or meds, nerve injury, and recurrence were addressed.) [place] Protocol: Procedure explained and questions answered to [...] sodium bicarbonate Procedure Details: Biopsy accession number: [id number] Biopsy lab: [place] [facility] Frozen section biopsy performed: Yes [...] limited to risks of scarring, darker or medical records coder pigmentary changes, recurrence, incomplete removal and infection. [...] follow up and biopsy documented in this [facility]08-20-2025 Telephone encounter Note* Telephone Encounter - Rosa M Gonzales MD - 12/04/2024 5:08 PM EDT Refills sent. [facility] [id number] Miscellaneous Notes* Telephone Encounter - Rosa M Gonzales MD - 12/04/2024 5:08 PM EDT Refills sent. documented in this [facility]08-19-2025 History of Present illness Narrative* [...] Would rather not change cardiac medications yet [facility] he has been doing so well. [...] using nitroglycerin as needed. documented in this encounterReynolds County General Memorial HospitalCukibjrxzk74-19-5426 History of Present illness Narrative* Alicia Fishman [...] exam Last visit: 06/14/24 Mohs to left spiritism SCC and 06/19/24 forED&C BCC on the [...] Left Eyebrow, Left Forearm - Anterior, Left Confucianist, Mid Parietal Scalp (3), Mid Tip of [...] limited to risks of scarring, darker or medical records coder pigmentary changes, recurrence, incomplete removal and infection. [...] Left Eyebrow, Left Forearm - Anterior, Left Confucianist, Mid Parietal Scalp (3), Mid Tip of Nose, Right Buccal Cheek 5. NEOPLASM OF UNSPECIFIED BEHAVIOR OF BONE, SOFT TISSUE, AND SKIN (4) Right Parietal Scalp [place] pearly papule Lesion biopsy Type of biopsy: [...] 1.2 x 1.0 cm Right Preauricular Area [place] scaly plaque Lesion biopsy Type of biopsy: [...] Scalp, RightLower Back (2), Right Preauricular Area [place] and brown stuck on verrucous scaly papule [...] limited to risks of scarring, darker or medical records coder pigmentary changes, recurrence, incomplete removal and infection. [...] Next Visit: 6 months documented in this encounterReynolds County General Memorial HospitalVqkihvgnyr24-62-2619 NoteTransplant Clinic Patient : Vishal Duke; 63 y.o. Reason for Visit: History of renal transplant. SUBJECTIVE: History Of Present Illness: Patient is a 63-year-old male with a history of end-stage renal disease (related to PKD, status post bilateral benton nephrectomies and 01/2023), who is status post DDRT on 08/15/[address] Marquez. CMV +/-. Notable history of NJ/cardiac arrest/implanted ICD in 2020 Patient returns regarding [...] on aug 16 2017 , uncomplicated. Hx; NJ and had Pacer/Defib Placed. Pt following up [facility] cardiology Pt inpatient for ruptured renal cyst [...] +/-. Patient has recent history of an NJ and had Pacer/Defib Placed. Patient here for follow up Nephrectomy Patient states he is feeling good with a 21 pound weight loss since bilat benton kidney's removed. He states that he currently [...] prevention discussed -Incision He (more content not included)...[facility] 10-17-2024 [facility] Note Chief [...] before he had a V-fib arrest at [facility]. He has not felt his [...] nitroglycerin (Nitrostat) 0.4 mg (more content not included)...[facility]06-19-2025 Telephone encounter Note* Telephone Encounter - Jackie Remy - 10/03/2024 3:56 PM EDT [facility] [place] [facility] for test strips and lancets. How many do you want them to dispense and how many refills? They will take a verbal [phone]. Thank you. [facility] Memorial HospitalFndetlrrlm45-51-1049 Miscellaneous Notes* Telephone Encounter - Jackie Remy - 10/03/2024 3:56 PM EDT [facility] [place] [facility] rx for test strips and lancets. How many do you want them to dispense and how many refills? They will take a verbal [phone]. Thank you. documented in this encounterReynolds County General Memorial HospitalWrhmzsnqpk53-25-9058 History of Present illness Narrative* Rosa M [...] Yes Vision Screening: Yes, patient sees regular director medical science/district fire management officer Hearing Screening: Yes, concerned about hearing loss [...] healthy, he has discontinued visits to the records assistant. He finds some relief from inhalers and monitors his oxygen levels at home, which typically range from 95 to 96 percent. He also reports occasio nal leg swelling, particularly in hot weather, but did not experience this during his recent trip to [place]. He has been experiencing frequent dizziness, which he attributes to either low blood pressure or high blood sugar levels. His superintendent house recently conducted an EKG, which yielded normal [...] is currently on Jardiance, prescribed by his superintendent house, and undergoes monthly lab tests ordered by his devops engineer due to a kidney transplant. His A1c [...] independence. Living will and durable power of podiatric physician reviewed. Updated patient problem list and reviewed all current medications with patient. Given time to ask questions. Simple chronic bronchitis ([facility]) This has been very stable. Post-COVID chronic dyspnea Chronic systolic congestive heart failure ([facility]) No signs of fluid overload. Echo with EF of 35% 08/07. Doing great. Still has occasional dyspnea or pain. Cardio is happy with where he is at present. Essential hypertension End-stage renal disease ([facility]) S/P Transplant. PKD (polycystic kidney disease) Stage 3a chronic kidney disease ([facility] History of kidney transplant ([facility]) Follows with transplant team. Dizziness Being evaluated by cardiology. Type 2 diabetes mellitus with diabetic cataract ([facility]) Type 2 diabetes mellitus with diabetic polyneuropathy ([facility]) Orders: Blood Glucose Monitoring Suppl (Blood Glucose Monitor System) w/Device kit; Use daily or as directed for monitoring of diabetes. Also dispense test strips and lancets of insurance choice. Cardiomyopathy, unspecified ([facility]) Assessment & Plan 1. Dyspnea. - Reports [...] diabetes. - Currently on Jardiance, prescribed by superintendent house, which also helps manage blood sugar. - No additional medications will be added at this time. - Advised to inform director medical science about elevated blood sugar levels during next [...] documented during this visit. documented in this encounterReynolds County General Memorial HospitalNzlgebjexi22-96-4491 NoteBELLEVUE [facility]INIC Cardiology Clinic Note Chief Complaint: [...] before he had a V-fib arrest at [facility]. He has not felt his [...] arm, Patient Position: Sit (more content not included)...[facility]03-05-2025 History of Present illness Narrative* Alicia Fishman [...] other part of trunk Left Upper Back [place] macule at biopsy site Destr of lesion Complexity: simple Destruction method: electrodesiccation and curettage Informed consent: discussed and consent obtained Informed consent comment: The risks of the procedure were discussed, including, but not limited to risks of scarring, darker or medical records coder pigmentary changes, recurrence, infection, and incomplete removal [...] lidocaine used: 2.0 cc Previous accession number: [id number] Emphasized to return to clinic for any signs of recurrence prior to next visit. Next Visit: as scheduled documented in this encounterReynolds County General Memorial HospitalAgqixntdoy74-33-4790 History of Present illness Narrative* Efren Centeno MD - 06/14/2024 8:30 AM EST Images from the original note were not included. Mohs Surgery Location: Left spiritism Date of biopsy: 05/02/2024 Diagnosis: Squamous Cell Carcinoma All pertinent medical history, medications, and allergies were reviewed. General Exam: alert, oriented to person, place, and time, normal affect, well appearing A focused exam completed based on patient reported problems, see below: 1. 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 Left Confucianist Erythematous macule at the biopsy site. Mohs surgery Consent obtained: written (The rationale for Mohs as well as the risks, benefits, and alternatives.The risks of infection, scarring, bleeding, prolonged wound healing, incomplete removal, allergy toanesthesia or meds, nerve injury, and recurrence were addressed.) [place] Protocol: Procedure explained and questions answered to [...] sodium bicarbonate Procedure Details: Biopsy accession number: [id number] Biopsy lab: [facility] Date of biopsy: 05/02/2024 Frozen section biopsy performed: Yes Specimen debulked: No Pre-Op diagnosis: squamous cell carcinoma MohsAIQ Surgical site (if tumor spans multiple areas, please select predominant area): spiritism Surgery side: left Surgical site (from skin exam): Left Confucianist Pre-operative length (cm): 0.8 Pre-operative width (cm): [...] Next visit: 06/19/2024, ED&C documented in this encounterReynolds County General Memorial HospitalTkvyuxymrs27-87-4103 NoteReviewed over the phone [address] Dr. Basurto patients outside labs hemoglobin 16.7 and hematocrit 51, and TAC level 8.3. Current IS tacrolimus IR 0.5 mg BID. New orders for phlebotomy, remove 500 and give 500 ml NS IV. Will watch TAC level for now, no dose changes. Updated patient to the above, verbalized understanding. Will come to [facility] to have this done, aware BOP will call to schedule.[facility]01-16-2025 History of Present illness Narrative* Alicia Fishman [...] Actinic keratosis (4) Left Nasofacial Sulcus, Left Confucianist, Mid Parietal Scalp (2) Erythematous scaly papules [...] limited to risks of scarring, darker or medical records coder pigmentary changes, recurrence, incomplete removal and infection. [...] skin lesion - Left Nasofacial Sulcus, Left Confucianist, Mid Parietal Scalp (2) 3. Lentigines Scattered garcia macules in sun-exposed areas. The patient was informed that lentigines are benign pigmented lesions that occur on sun-exposed andsun-damaged skin. No treatment is necessary. Recommended regular use of broad spectrum sunscreen SPF 30 or higher 4. Neoplasm of unspecified behavior of bone, soft tissue, and skin (3) Left Confucianist Hyperkeratotic papule Lesion biopsy Type of biopsy: [...] 0.7 x 0.7 cm Left Upper Back [place] scaly plaque Lesion biopsy Type of biopsy: [...] (squamous cell carcinoma) of skin (2) Left Confucianist, Mid Parietal Scalp No evidence of recurrence [...] Next Visit: 6 months documented in this encounterReynolds County General Memorial HospitalAyxflhhrfl18-42-8023 NoteTransplant Clinic Patient : Vishal Duke; 63 y.o. Reason for Visit: History of renal transplant. SUBJECTIVE: History Of Present Illness: Patient is a 63-year-old male with a history of end-stage renal disease (related to PKD, status post bilateral benton nephrectomies and 01/2023), who is status post DDRT on 08/15/[address] Marquez. CMV +/-. Notable history of NJ/cardiac arrest/implanted ICD in 2020 Patient returns regarding [...] on aug 16 2017 , uncomplicated. Hx; NJ and had Pacer/Defib Placed. Pt following up [facility] cardiology Pt inpatient for ruptured renal cyst [...] +/-. Patient has recent history of an NJ and had Pacer/Defib Placed. Patient here for follow up Nephrectomy Patient states he is feeling good with a 21 pound weight loss since bilat benton kidney's removed. He states that he currently [...] any transplant-pertaining questions, con (more content not included)...[facility]12-05-2024 History of Present illness Narrative* Rosa M [...] touch or determine water temperature during showers. Rondaangela notes that exposure to cold wind exacerbates his symptoms. He expresses concern about the potential for another episode of shingles and is considering getting the shingles vaccine. He saw his superintendent house on Monday. His ejection fraction is up [...] high, except when he is in the [facility] and receives steroids. He is not diabetic. [...] He was advised to consult with his devops engineer regarding the administration of the Shingrix vaccine. 2. Cardiac issues. He saw his superintendent house on Monday. His ejection fraction is up to 50%. He was advised not to engagein strenuous activities such as running or snow blowing. He was put on Jardiance and was advised not to stop taking it. He has not had any issues with his blood sugar being high, [facility]. He is not diabetic. Assessment/Plan Problem List Items Addressed This Visit None Visit Diagnoses Herpes zoster without complication - Primary Elevated fasting glucose Relevant Orders Hemoglobin A1c (Completed) documented in this encounterReynolds County General Memorial HospitalAkunmsiyso75-37-2053 NoteBELLEVUE [facility]INIC Cardiology Clinic Note Chief Complaint: [...] RRR. No murmur, (more content not included)... [facility]11-18-2024 Hospital Discharge instructions Patient Education 03/04/2024 15:01:44 [...] urethra. Follow these instructions at home: Take wjuw-ltc-eywjgfr and prescription medicines only as told by [...] provider. Document Revised: 10/20/2021 Document Reviewed: 10/20/2021 [employer] Patient Education 2023 [employer]. Follow Up Care 01/29/2024 08:18:27 With:LEONARDA FRANK, Reji Farrell, URL Address: [facility] [address] [place] [address] [phone] When: Unknown Comments:2 yrs w/ PSA [facility] [place] 11-18-2024 NotePatient Education Urology Benign Prostatic Hyperplasia [...] Follow these instructions at home: ??? Take snsi-krc-fpgzwxt and prescription medicines only as told by [...] symptoms do not get (more content not included)...[facility] [place] [facility]10-23-2024 NoteThe patient had a testosterone level of 136 on 02/01/2024. His name was added to the low testosterone list for the month of January 2024.[facility]10-18-[address] Abiola jain, patient notified to increase fluids to hydrate well and recheck standing lab order in 2 weeks due to elevated creatinine and Hgb of 17.0. Patient also advised he is currently being treated for shingles and will finish antibiotic on Monday. He states shingle starting to dry up now. He will let us know if anything changes and they aren't healing.[facility]10-14-2024 History of Present illness Narrative* Nicki Velez, AGRICULTURAL REAL ESTATE AGENT - 01/29/2024 3:00 PM EDT Vishal Duke [...] (CMS/HCC) Managed by cardiology documented in this encounterRussell Ville [address]Btxewzteyu80-47-1722 History of Present illness Narrative* Nicki Velez, AGRICULTURAL REAL ESTATE AGENT - 01/26/2024 12:00 PM EDT Images from [...] -Stable with lifestyle modifications documented in this encounterReynolds County General Memorial HospitalDhwrnzwblg86-10-8005 Evaluation + Plan note Extracted from:Title:KEMI Post-operative Note - GeneralAuthor:Ivan Orozco Jr., DO GDate:01/11/24 Plan Transfer/Discharge: Transfer/Discharge Discharge when meets criteria ( From PACU to Ambulatory Surgery Unit, and To home ). Extracted from:Title:1Preop H&PAuthor:Gladys FRANK, Xochilt Mejiaate:01/11/24 Impression and Plan Impression: Screening for colon cancer, history of hyperplastic polyps, GERD Plan: -EGD and Colonoscopy Extracted from:Title:KEMI Pre-operative Note - EndoAuthor:Ivan Orozco Jr., DO GDate:01/11/24 Plan [place] [employer] Anesthesiologists (ASA) physical status classification: Class III. Anesthetic Preoperative Plan: Anesthesia General, and -TIVA. Future Appointments Appointment Date:01/29/2024 10:30:00 AM Scheduled Provider:Reji BROWER MD Location:[facility] [place] Appointment Type:URO Office Visit [facility] 09-26-2024 Hospital Discharge instructions Patient Education [...] reduce GERD symptoms. Medicines. These may include: ?Tygc-zok-ogsamwl antacids. ?Medicines that make your stomach empty [...] may include: ?Fatty foods, like fried foods. ?[place] fruits, like oranges or lemon. ?Other foods [...] Do not drink alcohol. General instructions Take xruo-mnk-dwijrqp and prescription medicines only as told by [...] provider. Document Revised: 05/31/2022 Document Reviewed: 05/31/2022 [employer] Patient Education 2023 Sokrati. 01/11/2024 10:20:44 Endoscopy, Care After Procedure [facility]) Endoscopy Care After Procedure Please read the instructions outlined below and refer to this sheet in the next few weeks. These discharge instructions provide you with general information on caring [facility] Your doctor may also give you [...] blood. Document Released: 11/15/2004 Document Re-Released: 09/25/2006 [employer] Patient Information [employer]. 01/11/2024 10:20:35 Colon Polyps Colon Polyps Colon [...] hard liquor (44 mL). General instructions Take lbuc-tye-eejzxaq and prescription medicines only as told by [...] provider. Document Revised: 07/22/2020 Document Reviewed: 07/22/2020 [employer] Patient Education 2023 Sokrati. 01/11/2024 10:20:34 Colonoscopy, Care After Surgery Salam [...] Follow Up Care 12/25/2023 10:22:05 With:Gladys FRANK, Xochilt Butler [facility] Address: When: Unknown Comments:Call for any problems. Office will call to schedule follow up appointment [facility] 09-26-2024 NoteProgress Note-Physician Patient: VISHAL DUKE Age: 63 years Sex: Male : 1960 Associated Diagnoses: None Author: Ivan Orozco Jr., DO Postoperative Information Postoperative disposition: Postoperative disposition: Home. Optimetrix number: Optimetrix number [id number]. Anesthetic utilized: General. Physical Examination Vital Signs [...] to Ambulatory Surgery Unit, and To home ).[facility] [place] [facility] HospitalComment on above:Result Comment: Electronically Signed By: Ivan Orozco Jr., DO\.br\Date and Time Signed: 01/11/24 11:27 [id number] NoteEndoscopic Procedure Report - Other Patient: VISHAL DUKE Age: 63 years Sex: Male : 1960 Associated Diagnoses: None Author: Xochilt Graham MD Pre-Procedure Procedure Date 01/11/2024 10:26:00 . Procedure Type: Colonoscopy with removal of tumor(s), polyp(s), or other lesion(s) by cold snare technique. Procedure provider Performed by Xochilt Graham MD. Current history and physical Reviewed. Kidney transplant ([id number]) on 01/01/2018 at 57 Years. Comments: 01/01/2020 12:00 Ronald Molina MAjean Seo Pt has three kidneys Placement of stent in cardiac conduit ([id number]). Triple coronary bypass (462750382). Bilateral vasectomy (178560622). Colonoscopy (848299473).. Past Medical History No active or resolved past medical history items have been selected or recorded.. Family History Alzheimer's disease Mother . Procedure History Kidney transplant ([id number]) on 01/01/2018 at 57 Years. Comments: 01/01/2020 12:00 REINAT Marcy Anderson MA Leia Seo Pt has three kidneys Placement of stent in cardiac conduit ([id number]). Triple coronary bypass (553050715). Bilateral vasectomy (906002365). Colonoscopy (556460464).. Colorectal neoplasm risk assessment High risk Previous [...] bedtime), # 90 tab(s), Refills(s) 0, Pharmacy: [facility], 177.8, cm, 12/25/23 9:23:00 EDT, Height/Length [...] Normal examined terminal ileum Images Procedure images: Rec1_hd_video_2023__T09_14_21_094.jpg Rec1_hd_video_2023__T09_14_07_725.jpg Rec1_hd_video__T09_13_15_291.jpg Rec1_hd_video_2023__T09_11_28_356.jpg Rec1_hd_video__T09_11_20_920.jpg Rec1_hd_video__T09_10_48_698.jpg Rec1_hd_video__T09_08_29_068.jpg Rec1_hd_video_2023__T09_06_28_957.jpg Rec1_hd_video__T09_05_36_358.jpg (Inserted Image. Unable to dis (more content not included)...[facility] [place] [facility] HospitalComment on above:Result Comment: Electronically Signed By: Gladys RFANK, Xochilt Butler\.br\Date and Time Signed: 01/11/24 10:28 EDTOther Comment: Missing Attachment - attachment storage system not supported [id number] Can be viewed in source systemMissroslindale general hospital Attachment - attachment storage system not supported [id number] Can be viewed insource systemMissing Attachment - attachment storage system not supported [id number] Can be viewed in source systemMissing Attachment - attachment storage system not supported [id number] Can be viewed in [facility] systemMissing Attachment - attachment storage system not supported [id number] Can be viewed in source systemMissing Attachment - attachment storage system not supported [id number] Can be viewed in source systemMissroslindale general hospital Attachment - attachment storage system not supported [id number] Can be viewed in source systemMissroslindale general hospital Attachment - attachment storage system not supported [id number] Can be viewed in source systemMissroslindale general hospital Attachment - attachment storage system not supported [id number] Can be viewed in sourcesystemMissroslindale general hospital Attachment - attachment storage system not supported [id number] Can be viewed in source systemMissroslindale general hospital Attachment - attachment storage system not supported [id number] Can be viewed in source sy stemMissroslindale general hospital Attachment - attachment storage system not supported [id number] Can be viewed in source systemMissroslindale general hospital Attachment - attachment storage system not supported [id number] Can be viewed in source [id number] NotePatient Education - Text Endoscopy Care After Procedure Please read the instructions outlined below and refer to this sheet in the next few weeks. These discharge instructions provide you with general information on caring for yourself [facility]. Your doctor may also give you specific [...] Document Re-Released: 09/25/2006 ExitCare? Patient Information ?2009 [employer]. Colonoscopy Care After Surgery Please read the instructions outlined below and refer to this sheet in the next few weeks. These discharge instructions provide you with general information on caring for yourself [facility]. Your doctor may also give you specific [...] weakness can develop ove (more content not included)...[facility] [place] [facility]09-26-2024 NoteEndoscopic Procedure Report - Other Patient: [...] normal examined duodenum Images Procedure images: Rec1_hd_video_2023__T08_45_16_915.jpg Rec1_hd_video_2023__T08_45_23_273.jpg Rec1_hd_video_2023__T08_45_03_184.jpg Rec1_hd_video_2023__T08_44_52_949.jpg Rec1_hd_video_2023__T08_43_34_038.jpg Rec1_hd_video_2023__T08_43_22_197.jpg Rec1_hd_video_2023__T08_43_03_991.jpg Rec1_hd_video_2023__T08_42_47_702.jpg Rec1_hd_video_2023__T08_41_40_816.jpg Rec1_hd_video_2023__T08_41_35_166.jpg Rec1_hd_video_2023__T08_41_25_447.jpg . Post-Procedure Complications: none. Estimated [...] follow in GI clinic in 1-2 after dischargeEast [place] Regional HospitalComment on above:Result Comment: Electronically Signed By: Gladys FRANK, Xochilt Butler\.br\Date and Time Signed: 01/11/24 09:38 EDTOther Comment: Missing Attachment - attachment storage system not supported [id number] Can be viewed in source system Missing Attachment - attachment storage system not supported [id number] Can be viewed in source systemMissing Attachment - attachment storage system not supported [id number] Can be viewed in source systemMissing Attachment - attachment storage system not supported [id number] Can be viewed in source systemMissing Attachment - attachment storage system not supported [phone] Can be viewed in source systemMissing Attachment - attachment storage system not supported 9852481 Can be viewed in source systemMissing Attachment - attachment storage system not supported [id number] Can be viewed in source systemMissing Attachment - attachment storage system not supported [id number] Can be viewed in source system Missing Attachment - attachment storage system not supported [id number] Can be viewed in source systemMissing Attachment - attachment storage system not supported [id number] Can be viewed in source systemMissing Attachment - attachment storage system not supported [phone] Can be viewed in source [phone] NoteHistory and Physical Patient: VISHAL DUKE Age: [...] bedtime), # 90 tab(s), Refills(s) 0, Pharmacy: [facility], 177.8, cm, 12/25/23 9:23:00 EDT, Height/Length [...] BPH with urinary obstruction / SNOMED CT 2735415678 / Confirmed Hypertension / SNOMED CT 5201706775 / Confirmed Renal failure / SNOMED CT 90330934 / Confirmed polycystic kidney disease / SNOMED CT 013388073 / Confirmed Hyperlipidemia / SNOMED CT 69355963 / Confirmed Microhematuria / SNOMED CT 955174046 / Confirmed Nocturia / SNOMED CT 094553622 / Confirmed Kidney transplanted / SNOMED CT 8110374434 / Confirmed Myocardial infarct / SNOMED CT 51457872 / Confirmed Screen for colon cancer / SNOMED CT 253824733 / Confirmed History of colon polyps / SNOMED CT 5591789442 / Confirmed Histories Past Medical History: No active or resolved past medical history items have been selected or recorded. Family History: Mother Alzheimer's disease Procedure history: Kidney transplant ([id number]) on 01/01/2018 at 57 Years. Comments: 01/01/2020 12:00 Leia Molina MA Pt has three kidneys Placement of stent in cardiac conduit ([id number]). Triple coronary bypass (198841924). Bilateral vasectomy (737826541). Colonoscopy (240104580). Social History Social & Psychosocial Habits Alcohol [...] (JAN 10 08:46) DBP 75 mmHg (JAN 10:46) Weight 94.3 kg (JAN 10:46) BMI 29.83 (JAN 10:46) General: in Nad Abdomen: Soft, NTND Impression and Plan Impression: Screening for colon cancer, history of hyperplastic polyps, GERD Plan: -EGD and [facility]oscopyEast [facility] HospitalComment on above:Result Comment: Electronically Signed By: Gladys FRANK, Xochilt Butler\.br\Date and Time Signed: 01/11/24 09:25 [id number] NoteProgress Note-Physician Patient: VISHAL DUKE Age: 63 [...] bedtime), # 90 tab(s), Refills(s) 0, Pharmacy: [facility], 177.8, cm, 12/25/23 9:23:00 EDT, Height/Length [...] BPH with urinary obstruction / SNOMED CT 4748937570 / Confirmed History of colon polyps / SNOMED CT 2561718290 / Confirmed Hyperlipidemia / SNOMED CT 63818894 / Confirmed Hypertension / SNOMED CT 5593170246 / Confirmed Kidney transplanted / SNOMED CT 5411190612 / Confirmed Microhematuria / SNOMED CT 164672436 / Confirmed Myocardial infarct / SNOMED CT 31371222 / Confirmed Nocturia / SNOMED CT 856946891 / Confirmed polycystic kidney disease / SNOMED CT 843975769 / Confirmed Renal failure / SNOMED CT 68959668 / Confirmed Screen for colon cancer / SNOMED CT 759662565 / Confirmed Histories Past Medical History: No active or resolved past medical history items have been selected or recorded. Procedure history: Kidney transplant ([id number]) on 01/01/2018 at 57 Years. Comments: 01/01/2020 12:00 EDT - Leia Anderson MA Pt has three kidneys Placement of (more content not included)...[facility] HospitalComment on above:Result Comment: Electronically Signed By: Ivan Orozco Jr., DO\.br\Date and Time Signed: 01/11/24 08:41 [id number] Telephone encounter Note* Telephone Encounter - Rosa M Gonzales MD - 12/08/2023 12:59 PM EDT [facility]ills sent. [facility] [id number] Miscellaneous Notes* Telephone Encounter - Rosa M Gonzales MD - 12/08/2023 12:59 PM EDT Refills sent. documented in this encounterReynolds County General [facility] [id number] Hospital Discharge instructions Follow Up Care 06/06/2023 12:55:17 With:LEONARDA FRANK, Reji Farrell, URL Address: [facility] [address] [place] [address]- [phone] When: Unknown [facility] 02-13-2023 NoteCARDIAC STRESS TEST Requesting Physician: [...] interpreted, and relayed in a separate dictation.[id number] Hospital Discharge instructions Patient Education 01/17/2022 12:05:57 [...] urethra. Follow these instructions at home: Take aqql-ueq-ynvnpzv and prescription medicines only as told by [...] 04/03/2006 Document Revised: 02/26/2019 Document Reviewed: 05/08/2017 [employer] Patient Education [employer]. Follow Up Care 11/09/2021 10:07:55 With:LEONARDA FRANK, Reji Farrell, URL Address: [facility] [address], [place] [address]- [phone] When:01/18/2024 Comments:PSA [facility] 10-03-2022 Evaluation + Plan note Diagnostic Tests Pending * PSA Total 01/17/22 [facility] 02-15-2022 NotePROCEDURE: SECUDE [employer] VCT 64, 5.0 mm slice axial images [...] and signed by Anjum Remy on 06/01/2021 1051[facility]-21-2021 NoteMR#: [id number] I [facility] Pt. Name: Vishal Duke Admitted: 12/02/2020 [...] Herrera MD Date Trans: 12/05/2020 05:37 A/patrizia [id number]_JN:[id number] cc: Rosa M Gonzales M.D. [address] [facility] [place] [address]nc[facility]08-[facility]-2021 NoteMR#: [id number] [facility] Pt. Name: Vishal Duke Date of Service: 12/02/2020 Room #: 4CD [id number] Birthdate: 1960 Referring Physician: CONSULTATION Reason for [...] disease, gout, GERD, hypertension, CAD status post [place] and 2 stents, HLD, Covid pneumonia Past [...] Watkins, DO Date Trans: 12/02/2020 05:52 P/ [id number] cc: Rosa M Gonzales M.D. [facility] [place] [address]Bhb [facility]05-06-2021 NoteMR#: [id number] I [facility] Pt. Name: Vishal Duke Admitted: 08/02/2020 Discharged: 08/19/2020 Date of : 1960 Physician: Juna Ferreira M.D. DISCHARGE SUMMARY PRIMARY DIAGNOSES: 1. [...] x2 in June. The patient's son and gnhtlfub-ri-zml were symptomatic just before him. The patient was complaining of fatigue and mild body aches. The patient also developed cough and mild shortness of breath. His dyspnea was initially with exertion, but progressed to minimal activity. After he spoke with his devops engineer, he decreased his Myfortic dose and received [...] Ferreira M.D. Date Trans: 08/20/2020 05:24 A/patrizia DN_JN:[id number] cc: Rosa M Gonzales M.D. [address] [place] [address]JaxKettering Health DaytonEvaluation + Plan note Future Appointments Appointment Date:01/11/2024 09:30:00 AM Scheduled Provider: Location:[facility] Appointment Type:Surgery FT Appointment Date:01/29/2024 10:30:00 AM Scheduled Provider:Reji BROWER MD Location:[facility] Appointment Type:URO Office Visit [facility] Evaluation + Plan note Future Appointments Appointment Date:03/04/2024 01:30:00 PM Scheduled Provider:Reji BROWER MD Location:[facility] Appointment Type:URO Office Visit [facility] evaluation note* Diagnosis Encounter for immunization- Primary Tinea corporis Dermatophytosis of the body Type 2 diabetes mellitus without complications (CMS/HCC) documented in this encounter [facility] HealthcareEvaluation note* Diagnosis Polycystic kidney disease, autosomal dominant- Primary Congenital polycystic kidney, autosomal dominant Kidney transplant status (CMS/HCC) Hypokalemia Hypopotassemia Ischemic cardiomyopathy (CMS/HCC) Other specified forms of chronic ischemic heart disease Add Pulmonary fibrosis, unspecified (J84.10) Atherosclerosis of benton coronary artery of benton heart with angina pectoris (CMS/HCC) Add Atherosclerosis of aorta (I70.0) Atherosclerosis of aorta Add 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 disease involving benton coronary 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 (CMS/HCC) Essential hypertension (CMS/HCC) Unspecified essential hypertension Status post insertion of drug-eluting stent into left anterior descending (LAD) artery for coronaryartery disease Immunosuppression (CMS/HCC) History of kidney transplant (CMS/HCC) Kidney replaced by transplant Wellness examination- Primary Simple chronic bronchitis (CMS/HCC) Simple chronic bronchitis Chronic systolic congestive heart failure (CMS/HCC) Coronary artery disease involving benton coronary 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 (CMS/HCC) Essential hypertension (CMS/HCC) Unspecified essential hypertension Gastroesophageal reflux disease without esophagitis Esophageal reflux PKD (polycystic kidney disease) Congenital polycystic kidney, unspecified type Immunosuppression (CMS/HCC) History of kidney transplant (CMS/HCC) Kidney replaced by transplant Mixed hyperlipidemia (CMS/HCC) Mixed hyperlipidemia Atherosclerotic heart disease of benton coronary artery with unspecified angina pectoris (CMS/HCC) Ventricular fibrillation (CMS/HCC) Ventricular fibrillation Left lateral epicondylitis- Primary Simple chronic bronchitis (CMS/HCC) Simple chronic bronchitis Chronic systolic congestive heart failure (CMS/HCC) Coronary artery disease involving benton coronary 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 (CMS/HCC) Essential [...] Cardiomyopathy, unspecified (CMS/HCC) documented in this encounter [facility] HealthcareEvaluation note* Diagnosis Polycystic kidney disease, autosomal dominant- Primary Congenital polycystic kidney, autosomal dominant Kidney transplant status (CMS/HCC) Hypokalemia Hypopotassemia Ischemic cardiomyopathy (CMS/HCC) Other specified forms of chronic ischemic heart disease Add Pulmonary fibrosis, unspecified (J84.10) Atherosclerosis of benton coronary artery of benton heart with angina pectoris (CMS/HCC) Add Atherosclerosis of aorta (I70.0) Atherosclerosis of aorta Add 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 disease involving benton coronary 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 (CMS/HCC) Essential hypertension (CMS/HCC) Unspecified essential hypertension Status post insertion of drug-eluting stent into left anterior descending (LAD) artery for coronaryartery disease Immunosuppression (CMS/HCC) History of kidney transplant (CMS/HCC) Kidney replaced by transplant Wellness examination- Primary Simple chronic bronchitis (CMS/HCC) Simple chronic bronchitis Chronic systolic congestive heart failure (CMS/HCC) Coronary artery disease involving benton coronary 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 (CMS/HCC) Essential hypertension (CMS/HCC) Unspecified essential hypertension Gastroesophageal reflux disease without esophagitis Esophageal reflux PKD (polycystic kidney disease) Congenital polycystic kidney, unspecified type Immunosuppression (CMS/HCC) History of kidney transplant (CMS/HCC) Kidney replaced by transplant Mixed hyperlipidemia (CMS/HCC) Mixed hyperlipidemia Atherosclerotic heart disease of benton coronary artery with unspecified angina pectoris (CMS/HCC) Ventricular fibrillation (CMS/HCC) Ventricular fibrillation Left lateral epicondylitis- Primary Simple chronic bronchitis (CMS/HCC) Simple chronic bronchitis Chronic systolic congestive heart failure (CMS/HCC) Coronary artery disease involving benton coronary 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 (CMS/HCC) Essential hypertension (CMS/HCC) Unspecified essential hypertension Status post insertion of drug-eluting stent into left anterior descending (LAD) artery for coronaryartery disease Immunosuppression (CMS/HCC) Mixed hyperlipidemia (CMS/HCC) Mixed hyperlipidemia Herpes zoster without complication- Primary Elevated fasting glucose Impaired fasting glucose documented in this encounter [facility] HealthcareEvaluation note* Diagnosis History of kidney transplant (CMS/HCC) Kidney replaced by transplant documented in this encounter [facility] HealthcareEvaluation note* Diagnosis Polycystic kidney disease, autosomal dominant- Primary Congenital polycystic kidney, autosomal dominant Kidney transplant status (CMS/HCC) Hypokalemia Hypopotassemia Ischemic cardiomyopathy (CMS/HCC) Other specified forms of chronic ischemic heart disease Add Pulmonary fibrosis, unspecified (J84.10) Atherosclerosis of benton coronary artery of benton heart with angina pectoris (CMS/HCC) Add Atherosclerosis of aorta (I70.0) Atherosclerosis of aorta Add 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 disease involving benton coronary 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 (CMS/HCC) Essential hypertension (CMS/HCC) Unspecified essential hypertension Status post insertion of drug-eluting stent into left anterior descending (LAD) artery for coronaryartery disease Immunosuppression ([facility]) History of kidney transplant (/HCC) Kidney replaced by transplant Wellness examination- Primary Simple chronic bronchitis (CMS/HCC) Simple chronic bronchitis Chronic systolic congestive heart failure (CMS/HCC) Coronary artery disease involving benton coronary 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 (CMS/HCC) Essential hypertension (CMS/HCC) Unspecified essential hypertension Gastroesophageal reflux disease without esophagitis Esophageal reflux PKD (polycystic kidney disease) Congenital polycystic kidney, unspecified type Immunosuppression ([facility]/HCC) History of kidney transplant (/HCC) Kidney replaced by transplant Mixed hyperlipidemia (CMS/HCC) Mixed hyperlipidemia Atherosclerotic heart disease of benton coronary artery with unspecified angina pectoris (CMS/HCC) Ventricular fibrillation (CMS/HCC) Ventricular fibrillation Left lateral epicondylitis- Primary Simple chronic bronchitis (CMS/HCC) Simple chronic bronchitis Chronic systolic congestive heart failure (CMS/HCC) Coronary artery disease involving benton coronary 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 (CMS/HCC) Essential [...] Add Pulmonary fibrosis, unspecified (J84.10) Atherosclerosis of benton coronary artery of benton heart with angina pectoris (CMS/HCC) Add Atherosclerosis of aorta (I70.0) Atherosclerosis of aorta Add 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 disease involving benton coronary 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 (CMS/HCC) Essential hypertension (CMS/HCC) Unspecified essential hypertension Status post insertion of drug-eluting stent into left anterior descending (LAD) artery for coronaryartery disease Immunosuppression (CMS/HCC) History of kidney transplant (CMS/HCC) Kidney replaced by transplant Wellness examination- Primary Simple chronic bronchitis (CMS/HCC) Simple chronic bronchitis Chronic systolic congestive heart failure (CMS/HCC) Coronary artery disease involving benton coronary 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 (CMS/HCC) Essential hypertension (CMS/HCC) Unspecified essential hypertension Gastroesophageal reflux disease without esophagitis Esophageal reflux PKD (polycystic kidney disease) Congenital polycystic kidney, unspecified type Immunosuppression (CMS/HCC) History of kidney transplant (CMS/HCC) Kidney replaced by transplant Mixed hyperlipidemia (CMS/HCC) Mixed hyperlipidemia Atherosclerotic heart disease of benton coronary artery with unspecified angina pectoris (CMS/HCC) Ventricular fibrillation (CMS/HCC) Ventricular fibrillation Left lateral epicondylitis- Primary Simple chronic bronchitis (CMS/HCC) Simple chronic bronchitis Chronic systolic congestive heart failure (CMS/HCC) Coronary artery disease involving benton coronary 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 (CMS/HCC) Essential hypertension (CMS/HCC) Unspecified essential hypertension Status post insertion of drug-eluting stent into left anterior descending (LAD) artery for coronaryartery disease Immunosuppression (CMS/HCC) Mixed hyperlipidemia (CMS/HCC) Mixed hyperlipidemia 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- Primary documented in this encounter [facility] HealthcareEvaluation note* Diagnosis Polycystic kidney disease, autosomal dominant- Primary Congenital polycystic kidney, autosomal dominant Kidney transplant status (CMS/HCC) Hypokalemia Hypopotassemia Ischemic cardiomyopathy (CMS/HCC) Other specified forms of chronic ischemic heart disease Add Pulmonary fibrosis, unspecified (J84.10) Atherosclerosis of benton coronary artery of benton heart with angina pectoris (CMS/HCC) Add Atherosclerosis of aorta (I70.0) Atherosclerosis of aorta Add 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 disease involving benton coronary 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 (CMS/HCC) Essential hypertension (CMS/HCC) Unspecified essential hypertension Status post insertion of drug-eluting stent into left anterior descending (LAD) artery for coronaryartery disease Immunosuppression (CMS/HCC) History of kidney transplant (CMS/HCC) Kidney replaced by transplant Wellness examination- Primary Simple chronic bronchitis (CMS/HCC) Simple chronic bronchitis Chronic systolic congestive heart failure (CMS/HCC) Coronary artery disease involving benton coronary 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 (CMS/HCC) Essential hypertension (CMS/HCC) Unspecified essential hypertension Gastroesophageal reflux disease without esophagitis Esophageal reflux PKD (polycystic kidney disease) Congenital polycystic kidney, unspecified type Immunosuppression (CMS/HCC) History of kidney transplant (CMS/HCC) Kidney replaced by transplant Mixed hyperlipidemia (CMS/HCC) Mixed hyperlipidemia Atherosclerotic heart disease of benton coronary artery with unspecified angina pectoris (CMS/HCC) Ventricular fibrillation (CMS/HCC) Ventricular fibrillation Left lateral epicondylitis- Primary Simple chronic bronchitis (CMS/HCC) Simple chronic bronchitis Chronic systolic congestive heart failure (CMS/HCC) Coronary artery disease involving benton coronary 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 (CMS/HCC) Essential [...] polycystic kidney, autosomal dominant Kidney transplant status ([facility]) Hypokalemia Hypopotassemia Ischemic cardiomyopathy Other specified forms of chronic ischemic heart disease Add Pulmonary fibrosis, unspecified (J84.10) Atherosclerosis of benton coronary artery of benton heart with angina pectoris Add Atherosclerosis of aorta (I70.0) Atherosclerosis of aorta Add 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 disease involving benton coronary 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 (HCC) Essential hypertension Unspecified essential hypertension Status post insertion of drug-eluting stent into left anterior descending (LAD) artery for coronaryartery disease Immunosuppression (HCC) History of kidney transplant (HCC) Kidney replaced by transplant Wellness examination- Primary Simple chronic bronchitis (HCC) Simple chronic bronchitis Chronic systolic congestive heart failure (HCC) Coronary artery disease involving benton coronary 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 (HCC) Essential hypertension Unspecified essential hypertension Gastroesophageal reflux disease without esophagitis Esophageal reflux PKD (polycystic kidney disease) Congenital polycystic kidney, unspecified type Immunosuppression (HCC) History of kidney transplant (HCC) Kidney replaced by transplant Mixed hyperlipidemia Mixed hyperlipidemia 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) Ventricular fibrillation Left lateral epicondylitis- Primary Simple chronic bronchitis (HCC) Simple chronic bronchitis Chronic systolic congestive heart failure (HCC) Coronary artery disease involving benton coronary 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 (HCC) Essential [...] unspecified type Stage 3a chronic kidney disease ([facility]-HCC) History of kidney transplant (HCC) Kidney replaced by transplant Dizziness Dizziness and giddiness Type 2 diabetes mellitus with diabetic cataract (HCC) Type II or unspecified type diabetes mellitus with ophthalmic manifestations, not stated as uncontrolled Type 2 diabetes mellitus with diabetic polyneuropathy (HCC) Cardiomyopathy, unspecified (HCC) documented in this encounter [facility] HealthcareEvaluation note* Diagnosis Polycystic kidney disease, autosomal dominant- Primary Congenital polycystic kidney, autosomal dominant Kidney transplant status (HCC) Hypokalemia Hypopotassemia Ischemic cardiomyopathy Other specified forms of chronic ischemic heart disease Add Pulmonary fibrosis, unspecified (J84.10) Atherosclerosis of benton coronary artery of benton heart with angina pectoris Add Atherosclerosis of aorta (I70.0) Atherosclerosis of aorta Add 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 disease involving benton coronary 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 (HCC) Essential hypertension Unspecified essential hypertension Status post insertion of drug-eluting stent into left anterior descending (LAD) artery for coronaryartery disease Immunosuppression (HCC) History of kidney transplant (HCC) Kidney replaced by transplant Wellness examination- Primary Simple chronic bronchitis (HCC) Simple chronic bronchitis Chronic systolic congestive heart failure (HCC) Coronary artery disease involving benton coronary 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 (HCC) Essential hypertension Unspecified essential hypertension Gastroesophageal reflux disease without esophagitis Esophageal reflux PKD (polycystic kidney disease) Congenital polycystic kidney, unspecified type Immunosuppression (HCC) History of kidney transplant (HCC) Kidney replaced by transplant Mixed hyperlipidemia Mixed hyperlipidemia 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) Ventricular fibrillation Left lateral epicondylitis- Primary Simple chronic bronchitis (HCC) Simple chronic bronchitis Chronic systolic congestive heart failure (HCC) Coronary artery disease involving benton coronary 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 (HCC) Essential [...] unspecified type Stage 3a chronic kidney disease ([facility]-HCC) History of kidney transplant (HCC) Kidney [...] Add Pulmonary fibrosis, unspecified (J84.10) Atherosclerosis of benton coronary artery of benton heart with angina pectoris Add Atherosclerosis of aorta (I70.0) Atherosclerosis of aorta Add 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 disease involving benton coronary 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 (HCC) Essential hypertension Unspecified essential hypertension Status post insertion of drug-eluting stent into left anterior descending (LAD) artery for coronaryartery disease Immunosuppression (HCC) History of kidney transplant (HCC) Kidney replaced by transplant Wellness examination- Primary Simple chronic bronchitis (HCC) Simple chronic bronchitis Chronic systolic congestive heart failure (HCC) Coronary artery disease involving benton coronary 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 (HCC) Essential hypertension Unspecified essential hypertension Gastroesophageal reflux disease without esophagitis Esophageal reflux PKD (polycystic kidney disease) Congenital polycystic kidney, unspecified type Immunosuppression (HCC) History of kidney transplant (HCC) Kidney replaced by transplant Mixed hyperlipidemia Mixed hyperlipidemia 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) Ventricular fibrillation Left lateral epicondylitis- Primary Simple chronic bronchitis (HCC) Simple chronic bronchitis Chronic systolic congestive heart failure (HCC) Coronary artery disease involving benton coronary 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 (HCC) Essential [...] unspecified type Stage 3a chronic kidney disease ([facility]-HCC) History of kidney transplant (HCC) Kidney [...] esophagitis Esophageal reflux documented in this encounter [facility] HealthcareEvaluation note* Diagnosis Polycystic kidney disease, autosomal dominant- Primary Congenital polycystic kidney, autosomal dominant Kidney transplant status (HCC) Hypokalemia Hypopotassemia Ischemic cardiomyopathy Other specified forms of chronic ischemic heart disease Add Pulmonary fibrosis, unspecified (J84.10) Atherosclerosis of benton coronary artery of benton heart with angina pectoris Add Atherosclerosis of aorta (I70.0) Atherosclerosis of aorta Add 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 disease involving benton coronary 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 (HCC) Essential hypertension Unspecified essential hypertension Status post insertion of drug-eluting stent into left anterior descending (LAD) artery for coronaryartery disease Immunosuppression (HCC) History of kidney transplant (HCC) Kidney replaced by transplant Wellness examination- Primary Simple chronic bronchitis (HCC) Simple chronic bronchitis Chronic systolic congestive heart failure (HCC) Coronary artery disease involving benton coronary 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 (HCC) Essential hypertension Unspecified essential hypertension Gastroesophageal reflux disease without esophagitis Esophageal reflux PKD (polycystic kidney disease) Congenital polycystic kidney, unspecified type Immunosuppression (HCC) History of kidney transplant (HCC) Kidney replaced by transplant Mixed hyperlipidemia Mixed hyperlipidemia 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) Ventricular fibrillation Left lateral epicondylitis- Primary Simple chronic bronchitis (HCC) Simple chronic bronchitis Chronic systolic congestive heart failure (HCC) Coronary artery disease involving benton coronary 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 (HCC) Essential [...] unspecified type Stage 3a chronic kidney disease ([facility]) History of kidney transplant (HCC) Kidney [...] replaced by transplant documented in this encounter [facility] HealthcareEvaluation note* Diagnosis Polycystic kidney disease, autosomal dominant- Primary Congenital polycystic kidney, autosomal dominant Kidney transplant status (HCC) Hypokalemia Hypopotassemia Ischemic cardiomyopathy Other specified forms of chronic ischemic heart disease Add Pulmonary fibrosis, unspecified (J84.10) Atherosclerosis of benton coronary artery of benton heart with angina pectoris Add Atherosclerosis of aorta (I70.0) Atherosclerosis of aorta Add 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 disease involving benton coronary 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 (HCC) Essential hypertension Unspecified essential hypertension Status post insertion of drug-eluting stent into left anterior descending (LAD) artery for coronaryartery disease Immunosuppression (HCC) History of kidney transplant (HCC) Kidney replaced by transplant Wellness examination- Primary Simple chronic bronchitis (HCC) Simple chronic bronchitis Chronic systolic congestive heart failure (HCC) Coronary artery disease involving benton coronary 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 (HCC) Essential hypertension Unspecified essential hypertension Gastroesophageal reflux disease without esophagitis Esophageal reflux PKD (polycystic kidney disease) Congenital polycystic kidney, unspecified type Immunosuppression (HCC) History of kidney transplant (HCC) Kidney replaced by transplant Mixed hyperlipidemia Mixed hyperlipidemia 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) Ventricular fibrillation Left lateral epicondylitis- Primary Simple chronic bronchitis (HCC) Simple chronic bronchitis Chronic systolic congestive heart failure (HCC) Coronary artery disease involving benton coronary 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 (HCC) Essential [...] behavior, site unspecified documented in this encounter [facility] HealthcareEvaluation note* Diagnosis Onset Date Resolution Status Admit Date Laceration of left index finger acuteSeptember 2024 12:25pm [facility] Work Phone: Evaluation note* Diagnosis Polycystic kidney disease, autosomal dominant- Primary Congenital polycystic kidney, autosomal dominant Kidney transplant status (HCC) Hypokalemia Hypopotassemia Ischemic cardiomyopathy Other specified forms of chronic ischemic heart disease Add Pulmonary fibrosis, unspecified (J84.10) Atherosclerosis of benton coronary artery of benton heart with angina pectoris Add Atherosclerosis of aorta (I70.0) Atherosclerosis of aorta Add 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 disease involving benton coronary 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 (HCC) Essential hypertension Unspecified essential hypertension Status post insertion of drug-eluting stent into left anterior descending (LAD) artery for coronaryartery disease Immunosuppression (HCC) History of kidney transplant (HCC) Kidney replaced by transplant Wellness examination- Primary Simple chronic bronchitis (HCC) Simple chronic bronchitis Chronic systolic congestive heart failure (HCC) Coronary artery disease involving benton coronary 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 (HCC) Essential hypertension Unspecified essential hypertension Gastroesophageal reflux disease without esophagitis Esophageal reflux PKD (polycystic kidney disease) Congenital polycystic kidney, unspecified type Immunosuppression (HCC) History of kidney transplant (HCC) Kidney replaced by transplant Mixed hyperlipidemia 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) Ventricular fibrillation Left lateral epicondylitis- Primary Simple chronic bronchitis (HCC) Simple chronic bronchitis Chronic systolic congestive heart failure (HCC) Coronary artery disease involving benton coronary 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 (HCC) Essential [...] unspecified type Stage 3a chronic kidney disease ([facility]) History of kidney transplant (HCC) Kidney replaced by transplant Dizziness Dizziness and giddiness Type 2 diabetes mellitus with diabetic cataract (HCC) Type II or unspecified type diabetes mellitus with ophthalmic manifestations, not stated as uncontrolled Type 2 diabetes mellitus with diabetic polyneuropathy ([facility]) Cardiomyopathy, unspecified ([facility]) Dizziness- Primary Dizziness and giddiness Orthostatic hypotension [...] he saw his regular [facility] by his superintendent house to agreed with and endorsed the care we rendered. The device was interrogated it in their office and it appears to be functioning appropriately. Because of all the above he is pleased with his care. He'll be following up henceforth with the [facility] superintendent house and we advised him were always happy to participate in his care if he needs help. I believe his ICD will be interrogated and managed through their office. We also note thathis renal transplant was not injured as a result of the hospitalization and contrast administrationand/or antibiotic therapy because of this he is pleased. [facility] [address] DO Work Phone: Hospital course Narrative No data available for this section [facility] Hospital Discharge instructions No data available for this section [facility] Progress note No data available for this section [facility] reason for referral (narrative)No reason for referral information [facility] Work Phone: Chief Complaint VISHAL DUKE is being seen for follow-up of a hospitalization for [facility] D/C 12/11/2020 ICD [...] section and content) DATE CREATED AUTHOR 04/25/2021 [employer] DATE CREATED AUTHOR AUTHOR'S ORGANIZ ATION 05/10/2021 [facility] DATE CREATED AUTHOR AUTHOR'S ORGANIZ ATION 07/18/2021 [facility] DATE CREATED AUTHOR AUTHOR'S ORGANIZ ATION 01/17/2022 [facility] [employer] DATE CREATED AUTHOR AUTHOR'S ORGANIZ ATION 08/25/2022 [facility] DATE CREATED AUTHOR AUTHOR'S ORGANIZ ATION 01/19/2024 [facility] DATE CREATED AUTHOR AUTHOR'S ORGANIZ ATION 03/06/2024 [facility] DATE CREATED AUTHOR AUTHOR'S ORGANIZ ATION 03/07/2024 [facility] DATE CREATED AUTHOR AUTHOR'S ORGANIZ ATION 01/18/2025 [facility] DATE CREATED AUTHOR AUTHOR'S ORGANIZ ATION 01/21/2025 [facility] EPIC Care Team (unrecognized sect ion and content) Team MemberRelationshipSpecialtyStart DateEnd Date Rosa M Gonzales MD [address] [facility] [place] [address] PCP - ACO [facility]09/08/22 Rosa M Gonzales MD [address] [facility] [place] [address] PCP - GeneralFamily Medicine10/25/22 Rosa M Platt, RN Registered NurseFamily Mbkeypkg66/15/23Team MemberRelationshipSpecialtyStart DateEnd Date Rosa M Gonzales MD [address] [facility] [place] [address] PCP - Generalmily Medicine10/25/22 Rosa M Gonzales MD [address] [place] [address] PCP - O [facility]08/16/23 Rosa M Platt, TATO Registered NurseAd[facility] Nbfwxjxa39/15/23Team MemberRelationshipSpecialtyStart DateEnd Rosa M Gonzales MD [address] [place] [address] PCP - [facility]10/25/22 Rosa M Gonzales MD [address] [place] [address] PCP - [facility]08/16/23 Rosa M Platt, TATO [facility]03/01/23Te MemberRelationshipSpecialtyStart DateEnd Rosa M Gonzales MD [address] [place] [address] PCP - [facility]10/25/22 Rosa M Gonzales MD [address] [place] [address] PCP - [facility]08/16/23 Rosa M Platt, TATO Reg[facility]03/01/23Te MemberRelationshipSpecialtyStart End Rosa M Gonzales MD [address] [place] [address] PCP - [facility]10/25/22 Rosa M Gonzales MD [address] [place] [address] PCP - [facility]08/16/23 Rosa M Platt, TATO Registered NurseP[facility]03/01/23Te MemberRelationshipSpecialtyStart DateEnd Date Rosa M Gonzales MD [address] [place] [address] PCP - [facility]10/25/22 Rosa M Gonzales MD [address] [place] [address] [facility] - [facility]08/16/23 Rosa M Platt, TATO Registered NurseP[facility]03/01/23Te MemberRelationshipSpecialtyStart DateEnd Date Rosa M Gonzales MD [address] [place] [address] PCP - [facility]10/25/22 Rosa M Gonzales MD [address] [place] [address] [facility] - [facility]08/16/23 Rosa M Platt, TATO Registered NurseP[facility]03/01/23Te MemberRelationshipSpecialtyStart DateEnd Date Rosa M Gonzales MD [address] [place] [address] PCP - [facility]10/25/22 Rosa M Gonzales MD [address] [place] [address] PCP - [facility]08/16/23 Rosa M Platt, TATO Registered [facility]03/01/23Te MemberRelationshipSpecialtyStart DateEnd Date Rosa M Gonzales MD [address] [place] [address] PCP - [facility]10/25/22 Rosa M Gonzales MD [address] [place] [address] [facility] - [facility]08/16/23 Rosa M Platt RN Registered NurseP[facility]03/01/23Te MemberRelationshipSpecialtyStart DateEnd Date Rosa M Gonzales MD [address] [place] [address] PCP - [facility]10/25/22 Rosa M Gonzales MD [address] [place] [address] PCP - [facility]08/16/23 Rosa M Platt, TATO Registered NurseP[facility]03/01/23Te MemberRelationshipSpecialtyStart DateEnd Date Rosa M Gonzales MD [address] [place] [address] PCP - [facility]10/25/22 Rosa M Gonzales MD [address] [place] [address] PCP - [facility]08/16/23 Rosa M Platt, TATO Registered NurseP[facility]03/01/23Te MemberRelationshipSpecialtyStart Rosa M Gonzales MD [address] [place] [address] PCP - [facility]10/25/22 Rosa M Gonzales MD [address] [place] [address] [facility] - [facility]08/16/23 Rosa M Platt RN Registered NurseP[facility]03/01/23Te MemberRelationshipSpecialtyStart End Rosa M Gonzales MD [address] [place] [address] [facility] - [facility]10/25/22 Rosa M Gonzales MD [address] [place] [address] [facility] - [facility]05/31/24 Rosa M Platt RN Registered NurseP[facility]03/01/23Te MemberRelationshipSpecialtyStart End Rosa M Gonzales MD [address] [place] [address] PCP - [facility]10/25/22 Rosa M Gonzales MD [address] [place] [address] [facility] - [facility]05/31/24 Rosa M Platt, RN Registered NurseAd[facility]-Nerv[facility]ylum Ejldivsb51/15/23Team MemberRelationshipSpecialtyStart DateEnd Date Rosa M Gonzales MD [address] [place] [address] PCP - [facility] Medicine10/25/22 Rosa M Gonzales MD [address] [place] [address] PCP - ACO [facility]05/31/24 Rosa M Platt RN Registered NurseP[facility]03/01/23Team MemberRelationshipSpecialtyStart DateEnd Date Rosa M Gonzales MD [address] [place] [address] PCP - [facility] Medicine10/25/22 Rosa M Platt, TATO Registered NurseP[facility]03/01/23Team MemberRelationshipSpecialtyStart DateEnd Date Rosa M Gonzales MD [address] [place] [address] PCP - [facility]Unity[facility]10/25/22 Rosa M Platt, TATO Registered NurseP[facility]03/01/23Team MemberRelationshipSpecialtyStart DateEnd Date Rosa M Gonzales MD [address] [place] [address] PCP - [facility] Medicine10/25/22 Rosa M Platt, RN [address] [place] [address] Registered NurseFamiAdventHealth Gordon03/01/23Team MemberRelationshipSpecialtyStart DateEnd Date Rosa M Gonzales MD [address] [place] [address] PCP - [facility]10/25/22 Rosa M Platt RN [address] [place] [address] Registered NurseP[facility]03/01/23Te MemberRelationshipSpecialtyStart DateEnd Date Rosa M Gonzales MD [address] [place] [address] PCP - [facility]10/25/22 Rosa M Platt RN [address] [place] [address] Registered NurseP[facility]03/01/23Te MemberRelationshipSpecialtyStart DateEnd Date Rosa M Gonzales MD [address] [place] [address] PCP - [facility]10/25/22 Rosa M Platt RN [address] [place] [address] Registered NurseP[facility]03/01/23Te MemberRelationshipSpecialtyStart DateEnd Date Rosa M Gonzales MD [address] [place] [address] PCP - [facility]10/25/22 Rosa M Platt, RN [address] [place] [address] Registered NurseP[facility]03/01/23Team MemberRelationshipSpecialtyStart DateEnd Date Rosa M Gonzales MD [address] [place] [address] PCP - [facility] Medicine10/25/22 Rosa M Platt RN [address] [place] [address] Registered NurseP[facility]03/01/23Team MemberRelationshipSpecialtyStart DateEnd Date Rosa M Gonzales MD [address] [place] [address] PCP - [facility]10/25/22 Rosa M Platt RN [address] [place] [address] Registered NurseP[facility]03/01/23Team MemberRelationshipSpecialtyStart DateEnd Date Rosa M Gonzales MD [address] [place] [address] PCP - [facility]10/25/22 Rosa M Platt RN [address] [place] [address] Registered NurseP[facility]03/01/23Team MemberRelationshipSpecialtyStart DateEnd Date Rosa M Gonzales MD [address] [place] [address] PCP - [facility]10/25/22 Rosa M Platt, TATO [address] [place] [address] Registered NurseP[facility]03/01/23Team MemberRelationshipSpecialtyStart DateEnd Date Rosa M Gonzales MD [address] [place] [address] PCP - [facility]10/25/22 Rosa M Gonzales MD [address] [place] [address] PCP - [place] [address] Rosa M Platt RN [address] [place] [address] Registered NurseP[facility]03/01/23Team MemberRelationshipSpecialtyStart DateEnd Date Rosa M Gonzales MD [address] [place] [address] PCP - [facility]10/25/22 Rosa M Gonzales MD [address] [place] [address] PCP - [place] [address] Rosa M Platt, TATO [address] [place] [address] Registered NurseP[facility]03/01/23 Team Status: Active Member Role Status Dates Rosa M Gonzales MD Primary Care Provide r Active Team Status: Inactive Member Role Status Dates Rosa M Gonzales MD Primary Care Provider Active Start: December 172024 End: January 06, 2025Patricia Jolley APRN [employer]IC[employer] ESTATE AGENT-CAttending Provider ActiveStart: January 06, 2025 End: January 06, 2025Team MemberRelationshipSpecialtyStart DateEnd Date Rosa M Gonzales MD [address] [place] [address] PCP - Generalmily Medicine10/25/22 Rosa M Gonzales MD [address] [place] [address] PCP - [place] [address] Rosa M Platt, TATO [address] [place] [address] Registered NurseUnitypoint Health-[facility] Hcgzqsjm89/15/23Te MemberRelationshipSpecialtyStart DateEnd Rosa M Gonzales MD [address] [place] [address] PCP - [facility] Medicine10/25/22 Rosa M Gonzales MD [address] [place] [address] PCP - [place] [address] Rosa M Platt RN [address] [place] [address] Registered NurseAd[facility] Poshmzws91/15/23Te MemberRelationshipSpecialtyStart DateEnd Rosa M Gonzales MD [address] [place] [address] PCP - [facility] Medicine10/25/22 Rosa M Gonzales MD [address] [place] [address] PCP - [place] [address] Rosa M Platt, RN [address] [place] [address] Registered NurseAd[facility] Ewnhtmhp34/15/23Chata MemberRelationshipSpecialtyStart DateEnd Date Rosa M Gonzales MD [address] [place] [address] PCP - GeneralFamily Medicine10/25/22 Rosa M Gonzales MD [address] [place] [address] PCP - [facility] Rosa M Gonzales MD [address] [place] [address] PCP - O [facility] Rosa M Gonzales MD [address] [place] [address] PCP - [place] [address] Rosa M Platt RN [address] [place] [address] Registered NurseFamily Zuavpagl68/15/23Team MemberRelationshipSpecialtyStart Date Rosa M Gonzales MD [address] [place] [address] PCP - GeneralFamily Medicine10/25/22 Rosa M Gonzales MD [address] [place] [address] PCP - [place] [address] Rosa M Platt, RN [address] [place] [address] Registered NurseFamily [id number]/15/23 Reason for Visit (unrecogniz ed section and [...] BE BASED ON THE PRIMARY CLINICAL RECORDS. [facility]. provides no warranty or guarantee of the accuracy or completeness of information in this document.
[2025-03-28 09:01] LABS: Hematocrit 49.2 % (42.0-54.0); Hemoglobin 15.7 g/dL (14.0-18.0); Immature Granulocytes Abs Auto 0.03 10^3/uL (0.00-0.03); Immature Granulocytes Pct Auto 0.5 % (0.0-0.5); Lymphocytes Absolute Auto 1.1 10^3/uL (1.2-3.8); Mean Corpuscular HGB Conc 31.9 g/dL (29.9-35.2); Mean Corpuscular Hemoglobin 29.0 pg (25.9-34.0); Mean Corpuscular Volume 90.8 fL (80.0-94.0); Platelet Count 212 10^3/uL (150-450); Red Blood Count 5.42 10^6/uL (4.70-6.10); White Blood Count 6.6 10^3/uL (4.0-11.0)
[2025-03-28 09:27] LABS: Alanine Aminotransferase 32 U/L (16-63); Albumin Globulin Ratio 1.2; Albumin Level 3.6 g/dL (3.4-5.0); Alkaline Phosphatase 97 U/L (46-116); Anion Gap 13.6; Aspartate Amino Transferase 17 U/L (15-37); Blood Urea Nitrogen 17.0 mg/dL (7.0-18.0); Calcium 9.1 mg/dL (8.5-10.1); Carbon Dioxide 28.8 mmol/L (21.0-32.0); Chloride 107 mmol/L (98-107); Cholesterol 120 mg/dL (<=200); Estimated GFR (African America >60 (>=60 mL/min/1.73m^2); Estimated GFR (Non-African Ame 56 (>=60 mL/min/1.73m^2); Globulin 3.1 g/dL; Glucose 138 mg/dL (74-106); HDL Cholesterol 39 mg/dL (40-60); Magnesium 1.7 mg/dL (1.8-2.4); Potassium 4.4 mmol/L (3.5-5.1); Sodium 145 mmol/L (136-145); Total Protein 6.7 g/dL (6.4-8.2); Triglycerides 110 mg/dL (<=150); Uric Acid 5.5 mg/dL (3.5-7.2); VLDL CHOLESTEROL 22.0 mg/dL
[2025-03-29 04:07] LABS: Sex Horm Binding Glob, Serum 28.9 nmol/L (19.3-76.4)
[2025-03-29 13:08] LABS: BKV DNA, Quant PCR, Plasma Negative (Negative)
== END 2025-03-28 08:21 | disposition home or self-care (01) ==
LOC: LAB 08:22
PROVIDERS: PCP Family Medicine; Visit Provider Nurse Practitioner Family
DX: Z94.1 Heart transplant status (principal); R73.01 Impaired fasting glucose
CPT/HCPCS: 36415; 80053; 80061; 80197; 82248; 83036; 83735; 84100; 84270; 84402; 84403; 84550; 85025; 87799